=== PATIENT | male | born 1960 | race Caucasian/White ===

== ENCOUNTER 2018-04-23 13:05 | Observation (INO) | payer OTHER ==
[2018-04-23 14:00] LABS: Absolute Lymphocytes (CBC) 1.5 K/uL (0.7-4.9); Absolute Monocytes 0.5 K/uL (0.1-1.3); Absolute Neutrophil 3.5 K/uL (1.8-8.0); Basophils % 1.1 % (0-1.3); MCH 25.9 pg (27.0-35.0); MCV 79.3 fL (80-100); MPV 7.8 fL (7.6-11.3); RBC Red Blood Cell Count 4.16 M/uL (4.33-5.43)
--- NOTE | 2018-04-23 14:03 | EDPHYS ---
Physician Documentation [facility] Name: Alex Cagle Age: 57 yrs Sex: Male : 1960 Arrival Date: 04/23/2018 Time: 13:08 Bed 27 Private MD: Toya Andrew H ED Physician Ambrocio Alonso HPI: 04/23 13:32 This 57 yrs old Male presents to ER via Ambulatory with complaints of Chest jarrell Pain. 13:32 The patient or guardian reports chest pain that is located primarily in the chest jarrell diffusely. Onset: 3 day(s) ago. The pain does not radiate. Associated signs and symptoms: Pertinent positives: lightheadedness, palpitations. The chest pain is described as aching. Duration: The patient or guardian reports multiple episodes, that are intermittent. Duration:. Modifying factors: The symptoms are alleviated by nothing. the symptoms are aggravated by nothing. Severity of pain: At its worst the pain was mild in the emergency department the pain is unchanged. The patient has experienced similar episodes in the past, a few times. Historical: - Allergies: 14:58 NKA; iw - PMHx: 13:20 CHF; Diabetes - NIDDM; Hypertension; insomnia; aa5 13:20 Dialysis; ESRD; aa5 - PSHx: 13:20 Knee surgery; aa5 13:20 Dialysis catheter to R chest; aa5 - Immunization history:: Adult Immunizations up to date. - Social history:: Smoking status: Patient/guardian denies using tobacco. - Ebola Screening: : No symptoms or risks identified at this time. - Family history:: not pertinent. ROS: 13:32 Constitutional: Negative for fever, chills, and weight loss, Eyes: Negative for injury, jarrell pain, redness, and discharge, ENT: Negative for injury, pain, and discharge, Neck: Negative for injury, pain, and swelling, Respiratory: Negative for shortness of breath, cough, wheezing, and pleuritic chest pain, Abdomen/GI: Negative for abdominal pain, nausea, vomiting, diarrhea, and constipation, Back: Negative for injury and pain, : Negative for injury, bleeding, discharge, and swelling, MS/Extremity: Negative for injury and deformity, Skin: Negative for injury, rash, and discoloration, Neuro: Negative for headache, weakness, numbness, tingling, and seizure, Psych: Negative for depression, anxiety, suicide ideation, homicidal ideation, and hallucinations, Allergy/Immunology: Negative for hives, rash, and allergies, Endocrine: Negative for neck swelling, polydipsia, polyuria, polyphagia, and marked weight changes, Hematologic/Lymphatic: Negative for swollen nodes, abnormal bleeding, and unusual bruising. 13:32 Cardiovascular: Positive for chest pain, palpitations. Exam: 13:32 Constitutional: This is a well developed, well nourished patient who is awake, alert, jarrell and in no acute distress. Head/Face: Normocephalic, atraumatic. Eyes: Pupils equal round and reactive to light, extra-ocular motions intact. Lids and lashes normal. Conjunctiva and sclera are non-icteric and not injected. Cornea within normal limits. Periorbital areas with no swelling, redness, or edema. ENT: Nares patent. No nasal discharge, no septal abnormalities noted. Tympanic membranes are normal and external auditory canals are clear. Oropharynx with no redness, swelling, or masses, exudates, or evidence of obstruction, uvula midline. Mucous membranes moist. Neck: Trachea midline, no thyromegaly or masses palpated, and no cervical lymphadenopathy. Supple, full range of motion without nuchal rigidity, or vertebral point tenderness. No Meningismus. Chest/axilla: Normal chest wall appearance and motion. Nontender with no deformity. No lesions are appreciated. Cardiovascular: Regular rate and rhythm with a normal S1 and S2. No gallops, murmurs, or rubs. Normal PMI, no JVD. No pulse deficits. Respiratory: Lungs have equal breath sounds bilaterally, clear to auscultation and percussion. No rales, rhonchi or wheezes noted. No increased work of breathing, no retractions or nasal flaring. Abdomen/GI: Soft, non-tender, with normal bowel sounds. No distension or tympany. No guarding or rebound. No evidence of tenderness throughout. Back: No spinal tenderness. No costovertebral tenderness. Full range of motion. Male : Normal genitalia with no discharge or lesions. Skin: Warm, dry with normal turgor. Normal color with no rashes, no lesions, and no evidence of cellulitis. MS/ Extremity: Pulses equal, no cyanosis. Neurovascular intact. Full, normal range of motion. Neuro: Awake and alert, GCS 15, oriented to person, place, time, and situation. Cranial nerves II-XII grossly intact. Motor strength 5/5 in all extremities. Sensory grossly intact. Cerebellar exam normal. Normal gait. Psych: Awake, alert, with orientation to person, place and time. Behavior, mood, and affect are within normal limits. Vital Signs: 13:12 BP 134 / 85; Pulse 80; Resp 18 S; Temp 98.3(O); Pulse Ox 96% on R/A; Weight 85.73 kg aa5 (R); Height 5 ft. 7 in. (170.18 cm) (R); Pain 10/10; 14:30 BP 131 / 82; Pulse 78; Resp 18; Pulse Ox 99% ; tl3 16:17 BP 126 / 87; Pulse 76; Resp 18; Pulse Ox 96% ; tl3 16:25 BP 130 / 79; Pulse 76; Resp 18; Pulse Ox 98% on R/A; tl3 17:24 BP 123 / 81; Pulse 79; Resp 16; Pulse Ox 97% ; tl3 13:12 Body Mass Index 29.60 (85.73 kg, 170.18 cm) aa5 MDM: 13:18 Patient medically screened. [facility] 13:39 Data reviewed: vital signs, nurses notes, old medical records, lab test result(s), EKG, [facility] radiologic studies, plain films. 04/23 13:32 Order name: Basic Metabolic Panel; Complete Time: 15:08 [facility] 04/23 13:32 Order name: CBC with Diff; Complete Time: 15:08 [facility] 04/23 13:32 Order name: Ckmb; Complete Time: 15:08 [facility] 04/23 13:32 Order name: CPK; Complete Time: 15:08 [facility] 04/23 13:32 Order name: LFT's; Complete Time: 15:08 [facility] 04/23 13:32 Order name: Magnesium; Complete Time: 15:08 [facility] 04/23 13:32 Order name: NT PRO-BNP; Complete Time: 15:08 [facility] 04/23 13:32 Order name: PT-INR; Complete Time: 15:08 [facility] 04/23 13:32 Order name: Ptt, Activated; Complete Time: 15:08 [facility] 04/23 13:32 Order name: Troponin (emerg Dept Use Only); Complete Time: 15:08 [facility] 04/23 13:32 Order name: XRAY Chest (1 view); Complete Time: 15:08 [facility] 04/23 13:32 Order name: TSH; Complete Time: 15: [facility] 04/23 13:32 Order name: Lipase; Complete Time: 15: [facility] 04/23 13:32 Order name: Echo w/ Doppler [facility] 04/23 13:32 Order name: EKG; Complete Time: 13:33 [facility] 04/23 13:32 Order name: Cardiac monitoring; Complete Time: 15:15 [facility] 04/23 13:32 Order name: EKG - Nurse/Tech; Complete Time: 15:15 [facility] 04/23 13:32 Order name: IV Saline Lock; Complete Time: 15: [facility] 04/23 13:32 Order name: Labs collected and sent; Complete Time: 15: [facility] 04/23 13:32 Order name: O2 Per Protocol; Complete Time: 15: [facility] 04/23 13:32 Order name: O2 Sat Monitoring; Complete Time: 15: [facility] 04/23 14:08 Order name: CONS Physician Consult EDMA 04/23 14:08 Order name: CONS Physician Consult EDMS Administered Medications: 15:19 Drug: Aspirin 162 mg Route: PO; tl3 16:19 Follow up: Response: No adverse reaction tl3 Disposition: 04/23/18 14:03 Hospitalization ordered by Salima Meyrs for Observation. Preliminary diagnosis are Other chest pain, End stage renal disease, Palpitations. - Bed requested for Telemetry/MedSurg (observation). - Status is Observation. tl3 - Condition is Fair. - Problem is new. - Symptoms have improved. UTI on Admission? No Signatures: Dispatcher [employer] EDMS Ambrocio Alonso MD MD cha Williams, Irene RN Nabila Ruvalcaba RN RN Eliza Lozoya RN RN tl3 Feli Rogers Corrections: (The following items were deleted from the chart) 14:09 14:03 Hospitalization Ordered by Jamia Yuan MD for Observation. Preliminary eb diagnosis is Other chest pain; End stage renal disease; Palpitations. Bed requested for Telemetry/MedSurg (observation). Status is Observation. Condition is Fair. Problem is new. Symptoms have improved. UTI on Admission? No. jarrell 14:18 14:09 04/23/2018 14:03 Hospitalization Ordered by Jamia Yuan MD for Observation. jarrell Preliminary diagnosis is Other chest pain; End stage renal disease; Palpitations. Bed requested for Telemetry/MedSurg (observation). Status is Observation. Condition is Fair. Problem is new. Symptoms have improved. UTI on Admission? No. eb 15:38 14:18 04/23/2018 14:03 Hospitalization Ordered by Salima Myers MD for Observation. eb Preliminary diagnosis is Other chest pain; End stage renal disease; Palpitations. Bed requested for Telemetry/MedSurg (observation). Status is Observation. Condition is Fair. Problem is new. Symptoms have improved. UTI on Admission? No. jarrell 17:44 15:38 04/23/2018 14:03 Hospitalization Ordered by Salima Myers MD for Observation. tl3 Preliminary diagnosis is Other chest pain; End stage renal disease; Palpitations. Bed requested for Telemetry/MedSurg (observation). Status is Observation. Condition is Fair. Problem is new. Symptoms have improved. UTI on Admission? No. eb
--- NOTE | 2018-04-23 14:03 | ER ---
Nurse's Notes [facility] Name: Alex Cagle Age: 57 yrs Sex: Male : 1960 Arrival Date: 04/23/2018 Time: 13:08 Bed 27 Private MD: Toya Andrew H Diagnosis: Other chest pain;End stage renal disease;Palpitations Presentation: 04/23 13:10 Presenting complaint: Patient states: Intermittent left-sided chest pain and aa5 palpitations since last night. 13:10 Transition of care: patient was not received from another setting of care. Onset of aa5 symptoms was April 2018. Risk Assessment: Do you want to hurt yourself or someone else? Patient reports no desire to harm self or others. Initial Sepsis Screen: Does the patient meet any 2 criteria? No. Patient's initial sepsis screen is negative. Does the patient have a suspected source of infection? No. Patient's initial sepsis screen is negative. Care prior to arrival: None. 13:10 Method Of Arrival: Ambulatory aa5 13:10 Acuity: DEJAN 3 aa5 Historical: - Allergies: 14:58 NKA; iw - PMHx: 13:20 CHF; Diabetes - NIDDM; Hypertension; insomnia; aa5 13:20 Dialysis; ESRD; aa5 - PSHx: 13:20 Knee surgery; aa5 13:20 Dialysis catheter to R chest; aa5 - Immunization history:: Adult Immunizations up to date. - Social history:: Smoking status: Patient/guardian denies using tobacco. - Ebola Screening: : No symptoms or risks identified at this time. - Family history:: not pertinent. Screenin:43 Abuse screen: Denies threats or abuse. Nutritional screening: No deficits noted. tl3 Tuberculosis screening: No symptoms or risk factors identified. Fall Risk None identified. Assessment: 13:43 General: Appears in no apparent distress. comfortable, well groomed, well developed, tl3 well nourished, Behavior is calm, cooperative, appropriate for age. General: pt reports that he had palpitations, fluttering earlier today that was uncomfortable, causing him to become lightheaded. Pain: Denies pain. Pain does not radiate. Pain began. Neuro: No deficits noted. Level of Consciousness is awake, alert, obeys commands, Oriented to person, place, time, situation, Appropriate for age. Cardiovascular: Reports lightheadedness, palpitations, since earlier today. Respiratory: Airway is patent Respiratory effort is even, unlabored, Respiratory pattern is regular, symmetrical. GI: No signs and/or symptoms were reported involving the gastrointestinal system. : No signs and/or symptoms were reported regarding the genitourinary system. EENT: No signs and/or symptoms were reported regarding the EENT system. 14:30 Reassessment: Patient appears in no apparent distress at this time. No changes from tl3 previously documented assessment. Patient and/or family updated on plan of care and expected duration. Pain level reassessed. Patient is alert, oriented x 3, equal unlabored respirations, skin warm/dry/pink. at bedside. 17:24 Reassessment: Patient appears in no apparent distress at this time. No changes from tl3 previously documented assessment. Patient and/or family updated on plan of care and expected duration. Pain level reassessed. Patient is alert, oriented x 3, equal unlabored respirations, skin warm/dry/pink. Vital Signs: 13:12 BP 134 / 85; Pulse 80; Resp 18 S; Temp 98.3(O); Pulse Ox 96% on R/A; Weight 85.73 kg aa5 (R); Height 5 ft. 7 in. (170.18 cm) (R); Pain 10/10; 14:30 BP 131 / 82; Pulse 78; Resp 18; Pulse Ox 99% ; tl3 16:17 BP 126 / 87; Pulse 76; Resp 18; Pulse Ox 96% ; tl3 16:25 BP 130 / 79; Pulse 76; Resp 18; Pulse Ox 98% on R/A; tl3 17:24 BP 123 / 81; Pulse 79; Resp 16; Pulse Ox 97% ; tl3 13:12 Body Mass Index 29.60 (85.73 kg, 170.18 cm) aa5 ED Course: 13:08 Patient arrived in ED. mr 13:09 Toya Andrew DO is Private Physician. mr 13:10 Arm band placed on. aa5 13:10 Arm band placed on Patient placed in an exam room, on a stretcher. aa5 13:18 Ambrocio Alonso MD is Attending Physician. [facility] 13:20 Triage completed. aa5 13:30 EKG done, by quality control technician. reviewed by Ambrocio Alonso MD. sm3 13:42 Eliza Rodriguez, RN is Primary Nurse. tl3 13:43 Patient has correct armband on for positive identification. Placed in gown. Bed in low tl3 position. Call light in reach. Side rails up X 1. Adult w/ patient. nurse monitoring on. Pulse ox on. NIBP on. 13:43 No provider procedures requiring assistance completed. Inserted saline lock: 20 gauge tl3 in right wrist, using aseptic technique. Patient maintains SpO2 saturation greater than 95% on room air. 13:57 X-ray completed. Portable x-ray completed in exam room. Patient tolerated procedure sw well. 13:59 XRAY Chest (1 view) In Process Unspecified. EDME 14:02 Toya Andrew DO is Hospitalizing Provider. [facility] 14:02 Jamia Yuan MD is Hospitalizing Provider. [facility] 14:17 Salima Myers MD is Hospitalizing Provider. [facility] 16:25 Admitting physician to see patient. tl3 17:33 Patient admitted, IV remains in place. tl3 Administered Medications: 15:19 Drug: Aspirin 162 mg Route: PO; tl3 16:19 Follow up: Response: No adverse reaction tl3 Outcome: 14:03 Decision to Hospitalize by Provider. [facility] 17:31 Admitted to Med/surg accompanied by [facility], via wheelchair, with chart, Report called to tl3 KATIANA Ochoa 17:31 Condition: stable 17:31 Instructed on the need for admit, Demonstrated understanding of instructions. 17:44 Patient left the ED. tl3 Signatures: Dispatcher [employer] EDME Ambrocio Alonso MD MD cha Rivera, Maria mr Williams, Irene, RN Nabila Ruvalcaba RN RN dewey5 Sarah Henderson Tammy, KATIANA RN 3 Kassie Sanz 3
[2018-04-23] MEDS ORDERED: GLUCAGON 1 MG/VIAL IM PRN (14:07)
[2018-04-23] MEDS ORDERED: D50W 25 GM/50 ML SYRINGE IV PRN (14:07)
[2018-04-23 14:18] LABS: Protime INR 0.98
[2018-04-23 14:43] LABS: Albumin 3.5 g/dL (3.4-5.0); Bilirubin Direct 0.1 mg/dL (0-0.2); Bilirubin Total 0.3 mg/dL (0.2-1.0); CKMB Creatine Kinase MB 1.3 ng/mL (0.3-3.6); Magnesium 2.3 mg/dL (1.8-2.4); Protein, Total 7.2 g/dL (6.4-8.2); Thyroid Stimulating Hormone 0.24 uIU/mL (0.36-3.74)
--- NOTE | 2018-04-23 15:02 | RAD REPORT ---
EXAM DESCRIPTION: RAD - Chest Single View - 04/23/2018 2:03 pm CLINICAL HISTORY: Palpitations, patient provided history of intermittent left-sided chest pain COMPARISON: June 2016 TECHNIQUE: AP portable chest image was obtained 1350 hours . FINDINGS: No peripheral mass or consolidation. No significant failure or volume overload findings. M ild cardiomegaly is present without vascular engorgement. Double-lumen dialysis catheter has been tory vania since the prior examination. Trachea is midline. No upper lobe vascular engorgement. No measurabl e pleural effusion and no pneumothorax. No gross bony abnormality seen. No acute aortic findings susp ected. IMPRESSION: Mild cardiomegaly without failure, volume overload or other acute cardiopulmonary findin g. Lung markings are similar to comparison.
[2018-04-23] MEDS ORDERED: ZOLPIDEM TARTRATE 5 MG TABLET PO PRN (15:07)
[2018-04-23] MEDS ORDERED: ACETAMINOPHEN 500 MG TAB PO PRN (15:07)
[2018-04-23] MEDS ORDERED: ALPRAZOLAM 0.25 MG TABLET PO PRN (15:07)
[2018-04-23] MEDS ORDERED: NITROGLYCERIN 0.4 MG/TAB SL PRN (15:07)
--- NOTE | 2018-04-23 15:14 | ECHO ---
HEIGHT: ft in WEIGHT: lb oz DATE OF STUDY: REFER DR: Ambrocio Alonso MD 2-DIMENSIONAL: YES M.MODE: YES DOPPLER: YES COLOR FLOW: YES TDS: NO PORTABLE: YES DEFINITY: NO BUBBLE STUDY: NO DIAGNOSIS: PALPITATIONS CARDIAC HISTORY: CATHERIZATION: NO SURGERY: NO PROSTHETIC VALVE: NO PACEMAKER: NO MEASUREMENTS (cm) DIASTOLIC (NORMALS) SYSTOLIC (NORMALS) IVSd 1.3 (0.6-1.2) LA Diam 4.0 (1.9-4.0) LVEF 68% LVIDd 5.1 (3.5-5.7) LVIDs 3.2 (2.0-3.5) %FS 38% LVPWd 1.6 (0.6-1.2) Ao Diam 3.4 (2.0-3.7) 2 DIMENSIONAL ASSESSMENT: RIGHT ATRIUM: NORMAL LEFT ATRIUM: DILATED RIGHT VENTRICLE: NORMAL LEFT VENTRICLE: LEFT VENTRICULAR HYPERTROPHY TRICUSPID VALVE: NORMAL MITRAL VALVE: NORMAL PULMONIC VALVE: NORMAL AORTIC VALVE: NORMAL PERICARDIAL EFFUSION: NONE AORTIC ROOT: NORMAL LEFT VENTRICULAR WALL MOTION: NORMAL. DOPPLER/COLOR FLOW: MILD MITRAL AND TRICUSPID REGURGITATION. NORMAL RIGHT VENTRICULAR SYSTOLIC PRESSURE. COMMENTS: NORMAL LEFT VENTRICULAR EJECTION FRACTION. LEFT VENTRICULAR HYPERTROPHY. DILATED LEFT ATRIUM. MILD MITRAL AND TRICUSPID REGURGITATION. TECHNOLOGIST: RAGHAVENDRA FERNANDEZ
--- NOTE | 2018-04-23 15:16 | EKG ---
Test Date: 2018-04-23 Test Time: 13:21:19 Career Resource Specialist: WHITLEY MEASUREMENT RESULTS: Intervals: Rate: 77 WY: 178 QRSD: 94 QT: 438 QTc: 495 [place]: P: 12 WY: 178 QRS: 101 T: 6 INTERPRETIVE STATEMENTS: Normal sinus rhythm Rightward axis Nonspecific T wave abnormality Prolonged QT Abnormal ECG Compared to ECG 06/15/2016 12:00:31 Right-axis deviation now present T-wave abnormality now present Prolonged QT interval now present Electronically Signed On 04-23-18 15:15:32 CDT by Shahzad Martínez
[2018-04-23] MEDS ORDERED: ASPIRIN 81 MG CHEWABLE TABLET ONE (15:19)
[2018-04-23] MEDS: INSULIN -REGULAR HUMAN 50 UNIT/0.5 ML ML SQ SCH ×2 (16:30→20:01)
[2018-04-23] MEDS: ENOXAPARIN 30 MG/0.3 ML SQ SCH (18:50)
[2018-04-23] MEDS: MORPHINE 4 MG/ML SYR IV PRN ×2 (19:11→23:02)
[2018-04-23] MEDS: METOPROLOL TAR 50 MG TAB PO SCH (20:02)
--- NOTE | 2018-04-23 21:28 | CON ---
History Of Present Illness: Mr. Cagle is 57. He came to the hospital because his heart was racing. He has a blood pressure cuff that he uses frequently and he has had at least 2, maybe more spells wh ere his heart rate has been between 180 and 200. He will feel particularly bad. He monitors his blo od pressure carefully because he has renal failure. He has recently had some medication changes. Fo r 10 years, he has been taking amlodipine, benazepril for blood pressure, but those had to be stopped . He developed renal failure, spent more than a month in the hospital in [place], had to have a p ericardial effusion drained and then was started on hemodialysis. He has been on hemodialysis since January. He has never had an EKG when one of these spells happened. He does not get pain in the chest , pressure, tightness or squeezing. Ten years ago, he had a renal artery angiogram. It was suspecte d that he had renal artery stenosis. It was normal. He also had a coronary angiogram, which was nor mal. Outpatient Medications: Patient's outpatient medications now are slow release, nifedipine, hydralazi ne, and carvedilol. Allergies: THE PATIENT DOES NOT HAVE DRUG ALLERGIES. Social History: He uses no tobacco. No illegal drugs. Does not have diabetes or dyslipidemia. No history of myocardial infarction, stroke, or vascular disease. Physical Examination: General: He is 5 feet 7 inches, 85.7 kilos, mildly obese, at least overweight. Alert, oriented, ple asant, cooperative, not in distress. Vital signs: His most recent blood pressure was 134/85, pulse 80, temperature 98.3. Neurologic: He is alert, oriented, pleasant, cooperative, not in distress. Lungs: Clear. Cardiac: Normal. Abdomen: Soft. Extremities: Normal. Laboratory Data: He has an elevated N-terminal proBNP. It is over 11,000 and of course this is not unusual in a patient with severe renal dysfunction. He has had an echocardiogram that shows left na tricular hypertrophy, normal ejection fraction, dilated left atrium, mild mitral and tricuspid regurg itation. No pericardial effusion. Impression: The patient is probably having Atrial fibrillation. It is not present on today's EKG or monitoring strip that we see. He probably has paroxysmal atrial fibrillation. If we do not see any atrial fibrillation by tomorrow morning, I will recommend that we do an outpatient event monitor for 30 days or alternatively implant a device to record his rhythm. It will go on for 2 years, but base d on what I am hearing we are likely to see it within a 30 day period of time. If he has atrial fibr illation, then we would have the option of starting him on Multaq or amiodarone as the agents of tatum ce. Betapace would be contraindicated in a dialysis patient. Thank you very much for your kind referral of Mr. Cagle. I will follow him with you. NICKOLAS/BETTINA Voice ID: [id number] Report ID: [id number]
--- NOTE | 2018-04-24 02:59 | CON ---
Date of Consultation: 04/23/2018 Chief Complaint: End-stage renal disease, on dialysis. History Of Present Illness: The patient is a 57-year-old man with history of end-stage renal disease, has been dialyzed 3 times per week on Monday, , and Monday via the tunneled dialysis catheter. The patient came to the hospital because of palpitation. He had apparently palpitation with tachycardia up to 180 and 200. He was feeling somewhat dizzy, lightheaded, and had some chest pressure. In the recent past, he was hospitalized in [place] for pericardial effusion and was started on hemodialysis in January. Review of Systems: Constitutional: Denies fever, chills. Eyes: Denies vision changes. Ears, Nose, Mouth, and Throat: Denies sore throat or earache. Respiratory: Has some dyspnea off and on. Denies PND, orthopnea. Cardiovascular: Denies chest pain. GI: Denies nausea, vomiting. : Denies dysuria, hematuria. Musculoskeletal: Denies muscle aches or joint swelling. All other system reviewed and all are negative. Past Medical History: End-stage renal disease, on dialysis; pericardial effusion; anemic; CKD; renal osteodystrophy. Social History: Denies illicit drugs. Has positive history of tobacco. Denies alcohol. Family History: No history of kidney disease in his family. Physical Examination: General: Not in acute distress. Eyes: Anicteric. Sclerae EOMI. Ears, Nose, Mouth, and Throat: Oral mucosa is moist. No pallor. Neck: Supple. No JVD. No bruits. Lungs: Clear to auscultation bilaterally. Heart: S1, S2. No pericardial friction rub. Abdomen: Soft, benign, nontender. Extremities: Minimal edema. No clubbing. No cyanosis. No cellulitis. Laboratory Data: Hemoglobin 10.8, WBC 5.8, platelet count is 263,000. Chemistries show sodium 135, potassium 4.0, chloride 101, CO2 24, BUN 69, creatinine 8.9, glucose 103, calcium 8.4, magnesium [place] 2[place] [address], albumin 3.5, TSH 0.24, lipase 124, troponin 0.04. Chest x-ray; mild cardiomegaly, mild volume overload, no acute cardiopulmonary process, no pleural effusion, no pneumothorax. Mild cardiomegaly present without vascular engorgement. No consolidation. No peripheral mass. Impression And Plan: 1. End-stage renal disease. The patient will resume dialysis tomorrow. Continue low-sodium diet. Monitor blood pressure closely. 2. Tachycardia. The patient is undergoing workup with Cardiology. Troponin level is negative for acute coronary syndrome with myocardial infarction. The patient currently does not have chest pain. 3. Anemia and chronic kidney disease. Hemoglobin level satisfactory. 4. Renal osteodystrophy. Continue renal diet. Monitor phosphorus level. NADEEN/MODRamone Voice ID: [id number] Report ID: [id number]
[2018-04-24] MEDS: MORPHINE 4 MG/ML SYR IV PRN ×3 (03:13→11:54)
[2018-04-24 03:52] LABS: Urine Appearance CLEAR; Urine Bilirubin NEGATIVE (NEG); Urine Blood TRACE (NEG); Urine Color YELLOW; Urine Glucose 1+ (NEG); Urine Protein 3+ (NEG); Urine Urobilinogen 0.2 mg/dL (0.2-1.0)
[2018-04-24 03:54] LABS: Urine Microscopic Reflex ORDER UMIC
--- NOTE | 2018-04-24 03:54 | HP ---
Date of Admission: 04/23/2018 [place] Operator: Dr. Martínez, Cardiology. Primary Care Physician: Dr. Andrew. Chief Complaint: Chest pain, palpitation. History Of Present Illness: The patient is a 57-year-old male with past medical history of end-stage renal disease, on hemodialysis on Monday, , and Monday; hypertension; diabetes, non-insul in dependent; who was in his usual state of health, recently discharged from [facility] with an extended stay with uncontrolled blood pressure and pericardiocentesis procedure do ne during that hospitalization. The patient was in his usual state of health until he felt palpitati ons and had some chest pressure radiating to his left neck. The patient states this pain was constan t, moderate, progressively worsening, therefore came into the ER for further evaluation. Denies any fevers, chills, shortness of breath. Upon arrival, his vital signs showed blood pressure 134/85, pul se was 80. His EKG showed normal sinus rhythm. Chest x-ray did not show any acute changes, which sh ows some mild cardiomegaly without any volume overload. His labs showed a troponin [place] 0.04. BNP was [address]. TSH was low. The patient was then referred for admission. When seen in the ER, he was awak e, alert, oriented x3, in some mild distress. Past Medical History: End-stage renal disease, on hemodialysis on Monday, , and Monday; h ypertension; diabetes mellitus type 2, non-insulin dependent. Past Surgical History: The patient had some back surgery in the remote past. Allergies: NO KNOWN DRUG ALLERGIES. Medications: List reviewed. Social History: The patient is , has 2 daughters. No tobacco use, alcohol use, or illicit dr ug use. Family History: Father had heart disease and diabetes. Review of Systems: An 11-point system reviewed, negative except as per HPI. Physical Examination: Vital Signs: Blood pressure 134/85, pulse 80, respirations 18, temperature 98.3, O2 96% on room air. General: Awake, alert, oriented x3, in some mild distress. HEENT: Normocephalic, atraumatic. PERRLA. EOMI. Moist mucous membranes. Oropharynx is clear. Co njunctivae anicteric. Neck: Supple. No JVD. CV: S1, S2. Regular rate and rhythm. Peripheral pulses present. No murmurs. Respiratory: Clear to auscultation bilaterally. No wheezing. No stridor. No use of accessory musc les. Gastrointestinal: Abdomen is soft, nontender, nondistended. Positive bowel sounds. No guarding or rigidity. Extremities: No clubbing, cyanosis. Trace pedal edema. No calf tenderness. Neuro: Cranial nerves 2-12 intact grossly. No focal neurological deficit. Speech is normal. Stren gth is 5/5 in bilateral upper and lower extremities. Sensation intact to light touch. Skin: No rashes. Normal skin turgor. Laboratory Data: INR 0.98. Sodium 135, potassium 4, chloride 101, CO2 of 24, BUN 69, creatinine 8.9 , glucose 103, calcium 8.4, magnesium 2.3, AST 14, ALT 17. Troponin 0.04. BNP 98855. TSH 0.24. WB C 5.8, H and H 10.8 and 33, platelets 263. Echocardiogram shows EF 68%. Left ventricular hypertrophy. Dilated left atrium. Mild mitral and tr icuspid regurg. Chest x-ray shows mild cardiomegaly without failure, volume overload, or other acute cardiopulmonary finding. Lung markings similar to comparison, partially reviewed. EKG shows normal sinus rhythm, rate of 77, no specific T-wave abnormality. Assessment: A 57-year-old male with: 1.Chest pain, rule out acute coronary syndrome. We will start on chest pain guidelines, beta-blocke r, no steroids due to kidney dysfunction, aspirin, statin. 2.Palpitations. EKG shows normal sinus rhythm. Echocardiogram shows EF 68%. 3.Hypertensive heart disease. 4.End-stage renal disease, on hemodialysis. Dr. Higgins has been consulted. The patient wi ll go for dialysis tomorrow. 5.Essential hypertension. Resume home medications as appropriate. 6.Diabetes mellitus type 2. We will place on sliding-scale insulin and continue Accu-Cheks. 7.Gastrointestinal and deep venous thrombosis prophylaxis with PPI and Lovenox. Plan: Admit the patient to Med-Surg, place as observation. TAO Voice ID: [id number]
[2018-04-24 04:45] LABS: Urine Bacteria <20 /HPF (NONE SEEN); Urine Culture Reflex Order NOT NEEDED; Urine RBC NONE SEEN /HPF (NONE SEEN)
[2018-04-24 05:21] LABS: Absolute Lymphocytes (CBC) 1.7 K/uL (0.7-4.9); Absolute Monocytes 0.4 K/uL (0.1-1.3); Absolute Neutrophil 2.5 K/uL (1.8-8.0); Basophils % 1.4 % (0-1.3); Eosinophils % 4.8 % (0-4.4); Hematocrit 30.9 % (39.6-49.0); Lymphocytes % 34.3 % (15.3-44.8); MCH 26.7 pg (27.0-35.0); MPV 7.7 fL (7.6-11.3); RBC Red Blood Cell Count 3.91 M/uL (4.33-5.43)
[2018-04-24 05:23] LABS: Potassium 4.3 mmol/L (3.5-5.1)
[2018-04-24] MEDS: INSULIN -REGULAR HUMAN 50 UNIT/0.5 ML ML SQ SCH ×3 (07:30→16:30)
[2018-04-24] MEDS ORDERED: REGADENOSON 0.4 MG/5 ML SYR IV ONE (08:17)
[2018-04-24] MEDS: METOPROLOL TAR 50 MG TAB PO SCH (09:00)
[2018-04-24] MEDS ORDERED: ASPIRIN EC 81 MG TAB PO SCH (09:00)
[2018-04-24] MEDS ORDERED: HYDROCODONE/APAP 5/325 MG TAB PO PRN (09:28)
[2018-04-24] MEDS: CA ACETATE 667 MG CAP PO SCH ×2 (11:53→17:22)
[2018-04-24] MEDS: HYDRALAZINE HCL 25 MG TABLET PO SCH ×3 (14:00→19:37)
[2018-04-24] MEDS ORDERED: hydrOXYzine HCl 25 MG TAB PO SCH (14:00)
--- NOTE | 2018-04-24 14:53 | RAD REPORT ---
EXAM DESCRIPTION: NM - Rest Stress Cardiac Imaging - 04/24/2018 2:42 pm CLINICAL HISTORY: Chest pain COMPARISON: February 2009 TECHNIQUE: The patient was administered 10.9 mCi of Tc 99m Sestamibi prior to resting SPECT imaging of the heart. The patient was then administered 30.3 mCi of Tc 99m Sestamibi following exercise or ph armacologic stress. Multiplanar SPECT images were reviewed. FINDINGS: The end diastolic volume is 203 ml, the end systolic volume is 101 ml, and the ejection fr action is 50 %. Ventricular volumes have enlarged and ejection fraction has decreased since 2009. No stress-induced ischemic changes are identifiable. Mild diminished activity is seen in the inferior wall near the base and there is diminished activity at the apex that is not clearly different betwee n rest and stress imaging. The apex finding was detailed on the 2008 study is not clearly different. IMPRESSION: No stress-induced ischemic changes confirmed. Diminished activity near the apex is not c learly different from 2009 and not suspected to be ischemia. Enlarged end-diastolic volume of 203 milliliters, increased from 2009. Ejection fraction is 50%, redu vania from the 58% seen in the 2009 study.
--- NOTE | 2018-04-24 15:47 | TREADPHA ---
DX: CHEST PAIN Date of Study: 04/24/2018 Ht: 5 7 Wt: 197 lb 6.4 oz Consulting Physician: DOLORES MEDICATIONS: TYLENOL, ASPIRIN, XANAX, LOVENOX, DEXTROSE, GLUCAGEN, NOVOLIN-R, LOPRESSOR, NITROSTAT, AMBIEN. HISTORY: 57 YEAR OLD MAN WITH END STAGE RENAL FAILURE, HYPERTENSION, DIABETES MELLITUS AND CHEST PAIN. PHYSICIAL EXAMINATION: RESTING B.P.: 144/90 RESTING H.R.: 72 RESTING EKG: NORMAL SINUS RHYTHM. PROTOCOL: LEXISCAN EXERCISE TIME: 3:30 B.P. AT PEAK STRESS: 145/88 IMPRESSION: LEXISCAN STRESS TEST PERFORMED. CARDIOLITE INJECTED PER PROTOCOL. NO CHEST PAIN. NO VENTRICULAR TACHYCARDIA OR SUPRAVENTRICULAR TACHYCARDIA. SEE NUCLEAR MEDICINE REPORT.
[2018-04-24] MEDS: ENOXAPARIN 30 MG/0.3 ML SQ SCH (17:00)
[2018-04-24] MEDS ORDERED: FUROSEMIDE 40 MG TABLET PO SCH (17:00)
[2018-04-24] MEDS ORDERED: TAMSULOSIN 0.4 MG SR CAP PO SCH (21:00)
[2018-04-24] MEDS ORDERED: CARVEDILOL 3.125 MG TAB PO SCH (21:00)
--- NOTE | 2018-04-25 00:27 | PN ---
Date of Progress Note: 04/24/2018 Subjective: Patient doing better. Chest pain-free. Patient planned for dialysis today. Stress test today. Patient feeling better. Physical Examination: Vital Signs: Blood pressure 138/72, pulse of 88. Chest: Clear to auscultation. Heart: S1, S2. Regular. Abdomen: Soft, nontender. Extremities: No edema. Lab: Reviewed. Medication: Reviewed. Assessment And Plan: 1. End-stage renal disease. We will continue dialysis, TTS. 2. SHPT stable. 3. Hypertension, controlled, optimal. Continue current medication. 4. Coronary artery disease disease, will follow up with Cardiology. RENAE Voice ID: [id number] Report ID: [id number]
--- NOTE | 2018-04-25 05:58 | DS ---
Date of Discharge: 04/24/2018 Consultants: Dr. Martínez and Dr. Lawton with Cardiology and Dr. Marroquin with Nephrology. Procedures: Cardiac stress test on 04/24/2018. Admitting Diagnoses: 1.Palpitations. 2.Chest pain, precordial pain. 3.Hypertensive heart disease. 4.End-stage renal disease, on hemodialysis. 5.Essential hypertension. 6.Diabetes mellitus type 2, non-insulin requiring with hyperglycemia. Discharge Diagnoses: 1.Chest pain. Acute coronary syndrome ruled out. 2.Palpitations, resolved. 3.Hypertensive heart disease. 4.End-stage renal disease, on hemodialysis, stable. 5.Essential hypertension, stable. 6.Diabetes mellitus type 2, non-insulin requiring with hyperglycemia. 7.Microcytic hypochromic anemia, likely anemia of chronic disease and iron deficiency secondary to c hronic kidney disease. Hospital Course: The patient is a 57-year-old male who was admitted to the hospital for chest pain a nd palpitations. The patient has complicated medical history including diabetes, end-stage renal dis ease, on dialysis, who was recently admitted to [facility] in [place] for uncontrolle d blood pressure. The patient comes in with palpitations and chest pressure radiating to the left ne ck. He did have some tachycardia which improved with treatment. His initial cardiac enzymes and EKG were negative. He was admitted for ACS for rule out ACS. Repeat cardiac enzymes were also negative . No acute changes on EKG. The patient was seen by Dr. Martínez with Cardiology and stress test was r ecommended. The patient did have an echocardiogram done, which showed EF of 68%, left ventricular hy pertrophy. Atrial fibrillation was ruled out. Rhythm strips did not show any atrial fibrillation. Cardiology did recommend possible outpatient event monitor for 30 days or an implant device to record his rhythm. The patient was also seen by Dr. Marroquin with Nephrology, and his dialysis was resumed as scheduled. The patient also had a stress test done. The patient was then cleared for discharge and sent home in a stable condition. Activity: As tolerated. Medications: As per medication reconciliation list. Diet: Renal. Followup: Follow up with PCP in 2 to 3 days. Follow up with accounting manager assistant controller, Dr. Martínez in 2 weeks. F ollow up with primary restaurant worker in [place] in 2 weeks. Continue hemodialysis as scheduled. Retur n to ER for worsening condition. Physical Examination: General: Awake, alert, oriented x3, not in any acute distress. CV: S1, S2. No murmurs. Respiratory: Clear to auscultation bilaterally. No wheezing. Gastrointestinal: Abdomen is soft, nontender, nondistended. Positive bowel sounds. Extremities: No clubbing, cyanosis, edema. Neurologic: Nonfocal. SA/MODL Voice ID: [id number] Report ID: [id number]
[2018-04-25] MEDS ORDERED: FLUOXETINE 10 MG CAP PO SCH (09:00)
[2018-04-25] MEDS ORDERED: NIFEDIPINE XL 60 MG TABLET PO SCH (09:00)
--- NOTE | 2018-04-25 12:10 | PN ---
The patient had been admitted on 04/23/[address] Myers's service, was seen by Dr. Martínez for chest pain. He has a history of end-stage renal disease, hypertension, benign prostatic hypertrophy. He h ad a very low TSH. A stress test was done today, was normal. An echocardiogram was normal. I would suggest he can go home. He sees Dr. Andrew and he should follow up with him. He may need his thyroid evaluated further because of his very low TSH. His main complaint was palpitations. He does take Co reg 3.125 twice a day and may be reasonable to increase that. ISMAEL/BETTINA Voice ID: [id number] Report ID: [id number]
== END 2018-04-24 19:50 | disposition home or self-care (01) ==
LOC: ER 13:05 → ERHOLD 14:04 → 2ND 17:34
PROVIDERS: ADMIT Family Medicine; ATTEND Family Medicine
PROC: 5A1D70Z Performance of Urinary Filtration, Intermittent, Less than 6 Hours Per Day (ICD-10-PCS; principal; 2018-04-24)
DX: R07.9 Chest pain, unspecified (principal); R00.2 Palpitations; I13.11 Hypertensive heart and chronic kidney disease without heart failure, with stage 5 chronic kidney disease, or end stage renal disease; E11.22 Type 2 diabetes mellitus with diabetic chronic kidney disease; E11.65 Type 2 diabetes mellitus with hyperglycemia; N18.6 End stage renal disease; Z99.2 Dependence on renal dialysis; D50.9 Iron deficiency anemia, unspecified
CPT/HCPCS: 36415; 71045; 78452; 80048 ×2; 80061; 80076; 82550; 82553; 82962 ×4; 83690; 83735; 83880; 84443; 84484 ×3; 85025 ×2; 85610; 85730; 93005; 93017; 93306; 94760 ×3; 99285; A9500; G0257; G0378 ×2; J1650; J2785; 81003; 81015

== ENCOUNTER 2019-02-21 14:34 | Emergency (ER) | payer OTHER ==
--- OUTSIDE RECORDS SUMMARY | 2019-02-21 15:00 | XMS REPORT | Continuity of Care Document ---
:1960 Author Organization Interface Problems Problem Status Onset Classification Date Comments Source Date Reported Other specified 02/10/2019 complication of 018 [place] vascular prosthetic devices, implants and grafts, initial encounter Unspecified 02/06/2019 complication of 018 [place] internal prosthetic device, implant and graft, initial encounter ESRD NEEDING DIALYSIS, Active [facility] ACUTE PULMONARY E 018 [place] REFERRAL Active [facility] 018 [place] Acute hyperkalemia 02/06/2019 018 [place] Complication of 02/06/2019 intraperitoneal 018 [place] dialysis catheter REFFERAL Active [facility] 018 [place] RENAL/DO NOT USE FOR Active [facility] CHARGES F/C NOTES O [address] [place] [address] NEW EVALUATION Active [address] HYPERTENSIVE URGENCY, Active [facility] CHEST PAIN 018 [place] CHEST PAIN Active [facility] 018 [place] ACUTE DYSPNEA Active [facility] 018 [place] WEAKNESS Active [facility] 018 [place] CKD 01/25/2018 Tabatha [place] IN NEED OF DIALYSIS Active [facility] 018 [place] 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/28/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 018 [place] failure SOB Active [facility] 018 [place] ACUTE RENAL FAILURE, Active [facility] FLUID OVERLOAD, CHF 018 [place] Hyperkalemia 02/06/2019 [place] Type 2 diabetes 02/10/2019 mellitus with diabetic [place] chronic kidney disease 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 End stage renal 02/10/2019 disease [facility] Dependence on renal 02/10/2019 dialysis Ambrose [facility] Anxiety disorder, 02/06/2019 unspecified [place] Sleep apnea, 02/10/2019 unspecified [place] 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/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 [place] Pericardial effusion 02/10/2019 [place] Nausea 02/06/[address] [facility] Other symptoms and 02/06/2019 signs concerning food [place] and fluid intake Anxiety Res[facility] on [facility](<span Active Problem 02/10/2019 ID="[id number]">Eduarda Ambrose Cody liana</span>) [facility] Hypertension Resolved Problem [facility] Pericardial effusion [facility] Simple obesity Active Problem 02/10[facility] Sleep apnea Resolved Problem [facility]/10[facility] Type 2 diabetes 01/08/2019 [facility] mellitus without Medical complications [place] Acute pulmonary edema 02/10/[address] [facility] Acute kidney failure, 02/10/2019 unspecified [place] Fluid overload, 02/10/2019 unspecified [place] Obesity, unspecified 02/10/[address] [facility] Body mass index 02/10/2019 33.0-33.9, adult [place] Chronic obstructive 02/10/2019 pulmonary disease, [place] unspecified Dyspnea, unspecified 03/23/[address] [facility] Hypocalcemia 03/28/[address] [facility] Other disorders of 03/28/2018 phosphorus metabolism [place] Hypo-osmolality and 03/28/2018 hyponatremia [place] Iron deficiency 03/28/2018 anemia, unspecified [place] Secondary 03/28/2018 hyperparathyroidism of [place] renal origin Acute diastolic heart 03/28/2018 failure [place] Anemia in other 03/28/2018 chronic diseases [place] classified elsewhere Atherosclerosis of 03/28/2018 renal artery [place] Obstructive sleep 03/28/2018 apnea (pediatric) [place] END STAGE RENAL Active [facility] DISEASE [place] ACUTE PULMONARY EDEMA Active [facility] [place] ACUTE KIDNEY FAILURE, [facility] [place] DYSPNEA, U[facility]PECIFIED [facility] [place] FLUID OVERLOAD, Active [facility] UNSPECIFIED [place] HEART FAILURE, Active [facility] UNSPECIFIED [place] Medications Medication Details Route Status Patient Ordering Order Source Instructions Provider Date NIFEdipine 60 mg 60 mg=1 tab, Active oral tablet, PO, Daily, # 2018 [place] extended release 30 tab, 0 Refill(s), Pharmacy: [id number] heparin 10,000 unit, Inactive MH 10 mL, Route: 2017 [place] DIALYSIS, Drug form: INJ, ONCALL, Dosing Weight 102.273, kg, PRN Dialysis, Start date: 07/24/18 10:21:00 CDT, Duration: 1 doses or times, Stop date: Limited # of times Dilaudid 2 mg, 1 tab, No Longer Route: PO, Active 2017 [place] Drug form: TAB, Q4H, PRN Pain Score 7-10, Start date: 07/23/18 14:17:00 CDT, Duration: 30 day, Stop date: 08/22/18 14:16:00 CSTNotes: (Same as: Dilaudid) heparin 10,000 unit, Inactive 10 mL, Route: 2017 [place] DIALYSIS, Drug form: INJ, ONCALL, Dosing Weight 102.273, kg, Start date: 07/23/18 8:00:00 CDT, Duration: 1 doses or times Sodium Chloride 2,000 mL, No Longer 0.9% IV 2,000 mL Rate: for Active 2017 [place] dialysis, Route: IV, Dosing Weight 102.273 kg, Total Volume: 2,000, Start date: 07/23/18 7:22:00 CDT, Duration: 1 day, Stop date: 07/24/18 7:21:00 CDT, 2.23, m2 zolpidem 10 mg, Route: Inactive PO, Drug form: 2017 [place] TAB, Bedtime, Dosing Weight 102.273, kg, Start date: 07/22/18 21:00:00 CDT, Duration: 30 day, Stop date: 08/20/18 21:00:00 [employer]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 Take 1 hour before or 2 hours after meal; "Avoid grapefruit and grapefruit juice". Do not crush multivitamin 1 tab, Route: No Longer PO, Drug Form: Active 2018 [place] TAB, Dosing Weight 102.273, kg, Daily, Start date: 07/22/18 9:00:00 CDT, Duration: 30 day, Stop date: 08/20/18 9:00:00 CSTNotes: (Same as:One Tab Daily, Tab-A-Conor + Beta Carotene) Give with food. Hydralazine 50 mg, 1 tab, No Longer Hydrochloride 50 Route: PO, Active 2018 [place] MG Oral Tablet Drug form: TAB, TID, Dosing Weight 102.273, kg, Start date: 07/22/18 9:00:00 CDT, Duration: 30 day, Stop date: 08/20/18 17:00:00 CSTNotes: (Same as: Apresoline) May interfere w/enteral feedings Take With Food Lasix 80 mg, 2 tab, No Longer Route: PO, Active 2017 [place] Drug form: TAB, BID, Dosing Weight 102.273, kg, Start date: 07/22/18 9:00:00 CDT, Duration: 30 day, Stop date: 08/20/18 17:00:00 CSTNotes: (Same as: Lasix) May cause GI upset. Give with food or milk. carvedilol 3.125 mg, 1 No Longer tab, Route: Active 2018 [place] PO, Drug form: TAB, Q12H, Dosing Weight 102.273, kg, Start date: 07/22/18 9:00:00 CDT, Duration: 30 day, Stop date: 08/20/18 21:00:00 CSTNotes: Give with food. (Same As: Coreg) calcium acetate 2,001 mg, 3 No Longer 667 MG Oral cap, Route: Active 2018 [place] Capsule PO, Drug form: CAP, TID, Dosing Weight 102.273, kg, Start date: 07/22/18 9:00:00 CDT, Duration: 30 day, Stop date: 08/20/18 17:00:00 CSTNotes: Same as Phoslo Gel Cap Amlodipine 10 mg, 2 tab, No Longer Route: PO, Active 2018 [place] Drug form: TAB, Daily, Dosing Weight 102.273, kg, Start date: 07/22/18 9:00:00 CDT, Duration: 30 day, Stop date: 08/20/18 9:00:00 CSTNotes: (Same as: Norvasc) Docusate 100 mg, 1 cap, No Longer Route: PO, Active 2018 [place] Drug form: CAP, BID, Dosing Weight 96.7, kg, Start date: 07/22/18 9:00:00 CDT, Duration: 30 day, Stop date: 08/20/18 17:00:00 CSTNotes: (Same as: Colace) (Do Not Crush) carvedilol 12.5 37.5 mg=3 tab, Active mg oral tablet PO, BID, 0 2018 [place] Refill(s) calcium acetate See Active 667 MG Oral Instructions, 2018 [place] Capsule 0 Refill(s) Hydralazine 50 mg, PO, Active [facility] TID, 0 2018 [place] Refill(s) Amlodipine 10 MG 1 cap, PO, Active / Benazepril TID, 0 2018 [place] hydrochloride 20 Refill(s) MG Oral Capsule Hydroxyzine 25 mg, 1 tab, No Longer Hydrochloride 25 Route: PO, Active 2018 [place] MG Oral Tablet Drug form: TAB, TID, Dosing Weight 102.273, kg, PRN Anxiety, Start date: 07/22/18 6:31:00 CDT, Duration: 30 day, Stop date: 08/21/18 6:30:00 CSTNotes: (Same as: Atarax) Avoid alcohol. Alprazolam 2 MG 2 mg, 2 tab, No Longer Oral Tablet Route: PO, Active 2017 [place] [Xanax] Drug form: TAB, BID, Dosing Weight 102.273, kg, PRN Anxiety, Start date: 07/22/18 6:31:00 CDT, Duration: 30 day, Stop date: 08/21/18 6:30:00 CSTNotes: With food or milk (Same as: Xanax) Dilaudid 0.5 mg, 0.5 No Longer mL, Route: Active 2017 [place] IVP, Drug form: INJ, Q4H, Dosing Weight 102.273, kg, PRN Pain Score 7-10, Start date: 07/22/18 6:27:00 CDT, Duration: 30 day, Stop date: 08/21/18 6:26:00 CSTNotes: Same as: Dilaudid Dilaudid 1 mg, Route: Inactive IVP, ONCE, 2017 [place] Dosing Weight 96.7, kg, Priority: STAT, Start date: 07/22/18 4:04:00 CDT, Stop date: 07/22/18 4:04:00 CDT Dilaudid 1 mg, Route: Inactive IVP, ONCE, 2017 [place] Dosing Weight 96.7, kg, Priority: STAT, Start date: 07/22/18 2:16:00 CDT, Stop date: 07/22/18 2:16:00 CDT heparin 10,000 unit, No Longer 10 mL, Route: Active 2017 [place] DIALYSIS, Drug form: INJ, ONCALL, Dosing Weight 96.7, kg, Start date: 07/22/18 1:00:00 CDT, Duration: 1 doses or times Mannitol 25 gm, 100 mL, No Longer Route: IVPB, Active 2017 [place] Drug form: INJ, ONCE, Dosing Weight 96.7, kg, Start date: 07/22/18 0:43:00 CDT, Stop date: 07/22/18 0:43:00 CDTNotes: (Same as: Osmitrol) Infuse through 5 micron or smaller filter WASTE: F/P - Sink; E - Municipal Trash Bin normal saline 1,000 mL, No Longer 0.9% IV 1,000 mL Rate: for Active 2017 [place] dialysis prime and rinseback only, Rate: 0 ml/hr, Infuse over: 0, Route: IV, Dosing Weight 96.7 kg, Total Volume: 1,000, Start date: 07/22/18 0:43:00 CDT, Duration: 30 day, Stop date: 08/21/18 0:42:00 [employer] PRESIDENT, 2.16, m2 Acetaminophen 325 mg, 1 tab, No Longer Route: PO, Active 2017 [place] Drug form: TAB, Q4H, Dosing Weight 96.7, kg, PRN Pain Score 4-6, Start date: 07/22/18 0:22:00 CDT, Duration: 30 day, Stop date: 08/21/18 0:21:00 CSTNotes: Do not exceed 4 gm/day. (Same as: Tylenol) Morphine 2 mg, 2 mL, No Longer Route: IVP, Active 2017 [place] Drug form: SOLN, Q4H, Dosing Weight 96.7, kg, PRN Pain Score 7-10, Start date: 07/22/18 0:22:00 CDT, Duration: 30 day, Stop date: 08/21/18 0:21:00 CSTNotes: Preservative free. (Same as: Morphine Sulfate-PF) Ondansetron 4 mg, 2 mL, No Longer Route: IVP, Active 2017 [place] Drug form: INJ, Q6H, Dosing Weight 96.7, kg, PRN Nausea & Vomiting, Start date: 07/22/18 0:22:00 CDT, Duration: 30 day, Stop date: 08/21/18 0:21:00 CSTNotes: (Same as: Zofran) MEDICATION WASTE Product Size: 4 mg Product Wasted: ___ mg Dilaudid 0.5 mg, 0.5 Inactive mL, Route: 2017 [place] IVP, Drug form: INJ, ONCE, Dosing Weight 96.7, kg, Priority: STAT, Start date: 07/22/18 0:07:00 CDT, Stop date: 07/22/18 0:07:00 CDTNotes: Same as: Dilaudid Zofran 4 mg, 2 mL, No Longer Route: IVP, Active 2017 [place] Drug form: INJ, ONCE, Dosing Weight 96.7, kg, Start date: 07/21/18 23:47:00 CDT, Stop date: 07/21/18 23:47:00 CDTNotes: (Same as: Zofran) MEDICATION WASTE Product Size: 4 mg Product Wasted: ___ mg Dilaudid 0.5 mg, 0.5 No Longer mL, Route: Active 2017 [place] IVP, Drug form: INJ, ONCE, Dosing Weight 96.7, kg, Priority: STAT, Start date: 07/21/18 23:46:00 CDT, Stop date: 07/21/18 23:46:00 CDTNotes: Same as: Dilaudid Hydromorphone 0.5 mg, 0.5 Inactive mL, Route: 2017 [place] IVP, Drug form: INJ, ONCE, Dosing Weight 96.7, kg, Priority: STAT, Start date: 07/21/18 23:13:00 CDT, Stop date: 07/21/18 23:13:00 CDTNotes: Same as: Dilaudid Saline Flush 10 mL, Route: No Longer 0.9% IVP, Drug Active 2017 [place] Form: INJ, Dosing Weight 96.7, kg, PRN, PRN Line Flush, Start date: 07/21/18 21:24:00 CDT, Duration: 30 day, Stop date: 08/20/18 20:23:00 CSTNotes: (Same as: BD Posiflush) lactulose 10 g =1 Pack, PO, No Longer oral powder Daily, X 2 Active 2017 [place] day, # 30 ea, 0 Refill(s) Sodium 15 gm, PO, No Longer polystyrene Daily, X 2 Active 2017 [place] sulfonate 250 day, # 30 gm, MG/ML Oral 0 Refill(s) Suspension [Kayexalate] Kayexalate 15 gm, 60 mL, Inactive Route: PO, 2018 [place] Drug form: SUSP, ONCE, Dosing Weight 93.636, kg, Priority: STAT, Start date: 07/20/18 18:39:00 CDT, Stop date: 07/20/18 18:39:00 CDTNotes: (sodium polystyrene sulfonate 15 gm/60 ml CANDACE) Shake well before use. (Same as: Kayexalate, SPS) Ascorbic Acid 60 1 tab, PO, Active [place] MG / Calcium Daily, 0 2018 [facility] Pantothenate 10 Refill(s) Center MG / D-BIOTIN 0.3 MG / Folic Acid 0.8 MG / Niacinamide 20 MG / pyridoxine 10 MG / Riboflavin 1.7 MG / Thiamine 1.5 MG / Vitamin B 12 0.006 MG Oral Tablet [Fauzia-Conor] zolpidem 10 mg 10 mg=1 tab, Active [place] oral tablet PO, Bedtime, 0 2017 [facility] Refill[facility] Center Lorazepam 1 MG 1 mg=1 tab, Active [facility] Oral Tablet PO, PRN, 0 2017 [facility] Refill[facility] Center amLODIPine 10 mg 10 mg=1 tab, Active [facility] oral tablet PO, Daily, 0 2018 [facility] Center tamsulosin 0.4 mg, 1 cap, Inactive Route: PO, 2017 [place] Drug form: CAP, Bedtime, Dosing Weight 74.091, kg, Start date: 04/15/18 21:00:00 CDT, Duration: 30 day, Stop date: 05/14/18 21:00:00 CDTNotes: (Same As: Flomax) "Do Not Crush" Hydralazine 50 mg=1 tab, Active Hydrochloride 50 PO, TID, # 90 2018 [place] MG Oral Tablet tab, 0 Refill(s) NIFEdipine 60 mg 60 mg=1 tab, Active oral tablet, PO, Daily, # 2018 [place] extended release 30 tab, 0 Refill(s) carvedilol 3.125 3.125 mg=1 Active mg oral tablet tab, PO, Q12H, 2018 [place] # 60 tab, 0 Refill(s) Potassium 20 mEq, 1 tab, Inactive Chloride Route: PO, 2017 [place] Drug form: ERTAB, ONCE, Dosing Weight 87.784, kg, Start date: 04/15/18 15:22:00 CDT, Stop date: 04/15/18 15:22:00 CDTNotes: (Same as: K-Dur 20) "Do Not Crush" For patients unable to swallow tablet, dissolve in one half glass of water. Allow about 2 minutes for the tablets to disintegrate. Stir before giving to prepare slurry and administer. Please exclude Patient’ s with feeding tube less than 14 [place] (Dobhoff, J-tube etc) and pediatric and patients. With food and full glass of water Hydralazine 25 mg, 1 tab, Inactive Hydrochloride 25 Route: PO, 2017 [place] MG Oral Tablet Drug form: TAB, TID, Dosing Weight 74.091, kg, Start date: 04/15/18 9:00:00 CDT, Duration: 30 day, Stop date: 05/14/18 17:00:00 CDTNotes: (Same as: Apresoline) May interfere w/enteral feedings Take With Food. Lasix 80 mg, 2 tab, Inactive Route: PO, 2017 [place] Drug form: TAB, BID, Dosing Weight 74.091, kg, Start date: 04/15/18 9:00:00 CDT, Duration: 30 day, Stop date: 05/14/18 17:00:00 CDTNotes: (Same as: Lasix) May cause GI upset. Give with food or milk. Acetaminophen 1 tab, Route: Inactive 325 MG / PO, Drug Form: 2017 [place] Oxycodone TAB, Dosing Hydrochloride 5 Weight 74.091, MG Oral Tablet kg, BID, Start [Percocet 5/325] date: 04/15/18 9:00:00 CDT, Duration: 30 day, Stop date: 05/14/18 17:00:00 CDT carvedilol 3.125 mg, 1 Inactive tab, Route: 2018 [place] PO, Drug form: TAB, Q12H, Dosing Weight 74.091, kg, Start date: 04/15/18 9:00:00 CDT, Duration: 30 day, Stop date: 05/14/18 21:00:00 CDTNotes: Give with food. (Same As: Coreg) calcium acetate 2,001 mg, 3 Inactive 667 MG Oral cap, Route: 2018 [place] Capsule PO, Drug form: CAP, TID, Dosing Weight 74.091, kg, Start date: 04/15/18 9:00:00 CDT, Duration: 30 day, Stop date: 05/14/18 17:00:00 CDTNotes: Same as Phoslo Gel Cap Amlodipine 10 mg, 2 tab, Inactive Route: PO, 2017 [place] Drug form: TAB, Daily, Dosing Weight 74.091, kg, Start date: 04/15/18 9:00:00 CDT, Duration: 30 day, Stop date: 05/14/18 9:00:00 CDTNotes: (Same as: Norvasc) Morphine 2 mg, 1 mL, Inactive Route: IVP, 2017 [place] Drug form: SOLN, Q4H, Dosing Weight 87.784, kg, PRN Pain Score 6-10, Start date: 04/15/18 4:49:00 CDT, Duration: 30 day, Stop date: 05/15/18 4:48:00 CDT Ambien 5 mg, 1 tab, Inactive Route: PO, 2017 [place] Drug form: TAB, Bedtime, Dosing Weight 87.784, kg, PRN as needed for insomnia, Priority: NOW, Start date: 04/15/18 3:47:00 CDT, Duration: 30 day, Stop date: 05/15/18 3:46:00 CDTNotes: (Same As: Ambien) Hydroxyzine 25 mg=1 tab, Active Hydrochloride 25 PO, TID, PRN 2018 [place] MG Oral Tablet Anxiety, # 40 tab, 0 Refill(s) Insulin Lispro 2 unit, 0.02 Inactive mL, Route: 2018 [place] SUB-Q, Drug form: SOLN, TID-Before Meals, Dosing Weight 74.091, kg, PRN Blood Glucose Results, Start date: 04/15/18 2:15:00 CDT, Duration: 30 day, Stop date: 05/15/18 2:14:00 CDTNotes: (Same as: Humalog ) Roll in palms of hands gently; Do not shake `vigorously. "Single Patient Use Only " WASTE: F/P - Black; E - Municipal Trash Bin Stable for 28 days at room temperature. Expires in days from Date Dextrose 50% 25 gm, 50 mL, Inactive Syringe Route: IVP, 2017 [place] Drug Form: INJ, Dosing Weight 74.091, kg, PRN, PRN Blood Glucose Results, Start date: 04/15/18 2:15:00 CDT, Duration: 30 day, Stop date: 05/15/18 2:14:00 CDT Glucagon 1 mg, Route: Inactive IM, Drug form: 2018 [place] PDR/INJ, PRN, Dosing Weight 74.091, kg, PRN Blood Glucose Results, Start date: 04/15/18 2:15:00 CDT, Duration: 30 day, Stop date: 05/15/18 2:14:00 CDT Ergocalciferol 50,000 Inactive 41274 UNT Oral IntlUnit, 1 2018 [place] Capsule cap, Route: PO, Drug form: CAP, qWeek, Dosing Weight 74.091, kg, Start date: 04/15/18 2:00:00 CDT, Duration: 30 day, Stop date: 05/13/18 9:00:00 CDT Alprazolam 2 MG 2 mg, 2 tab, Inactive Oral Tablet Route: PO, 2018 [place] [Xanax] Drug form: TAB, BID, Dosing Weight 74.091, kg, PRN Anxiety, Start date: 04/15/18 1:56:00 CDT, Duration: 30 day, Stop date: 05/15/18 1:55:00 CDTNotes: With food or milk (Same as: Xanax) NS (Bolus) IV 250 mL, 500 Inactive ml/hr, Infuse 2017 [place] Over: 0.5 hr, Route: IV, 250, Drug form: INJ, ONCE, Priority: STAT, Dosing Weight 74.091 kg, Start date: 04/15/18 1:34:00 CDT, Stop date: 04/15/18 1:34:00 CDT Hydralazine 10 mg, Route: Inactive IVP, ONCE, 2017 [place] Dosing Weight 74.091, kg, Priority: STAT, Start date: 04/15/18 1:27:00 CDT, Stop date: 04/15/18 1:27:00 CDT Amlodipine 10 mg, 2 tab, Inactive Route: PO, 2017 [place] Drug form: TAB, ONCE, Dosing Weight 74.091, kg, Start date: 04/14/18 22:50:00 CDT, Stop date: 04/14/18 22:50:00 CDTNotes: (Same as: Norvasc) Hydralazine 10 mg, 0.5 mL, Inactive Route: IVP, 2017 [place] Drug form: INJ, ONCE, Dosing Weight 74.091, kg, Priority: STAT, Start date: 04/14/18 22:50:00 CDT, Stop date: 04/14/18 22:50:00 CDTNotes: (Same as: Apresoline) Push over 5 minutes Clonidine 0.1 mg, Route: Inactive Hydrochloride PO, Drug form: 2018 [place] 0.1 MG Oral TAB, ONCE, Tablet Dosing Weight 74.091, kg, Priority: STAT, Start date: 04/14/18 22:02:00 CDT, Stop date: 04/14/18 22:02:00 CDT Clonidine 0.1 mg, 1 tab, Inactive Hydrochloride Route: PO, 2017 [place] 0.1 MG Oral Drug form: Tablet TAB, ONCE, Dosing Weight 74.091, kg, Priority: STAT, Start date: 04/14/18 19:45:00 CDT, Stop date: 04/14/18 19:45:00 CDTNotes: (Same As: Catapres) Saline Flush 10 mL, Route: No Longer 0.9% IVP, Drug Active 2017 [place] Form: INJ, Dosing Weight 74.091, kg, PRN, PRN Line Flush, Start date: 04/14/18 18:55:00 CDT, Duration: 30 day, Stop date: 05/14/18 18:54:00 CDTNotes: (Same as: BD Posiflush) vancomycin + 500 mg, Route: Inactive Sodium Chloride IVPB, ONCE, 2017 [place] 0.9% IV 100 mL Start date: 03/19/18 13:00:00 CDT, Stop date: 03/19/18 13:00:00 CDT, ABX Indication: Other (specify in Comments)Notes : TIME CRITICAL MEDICATION (Same As: Vancocin) For adult patients only: Round to nearest 250 mg per Medical Staff approval cefdinir 300 MG 300 mg=1 cap, Active Oral Capsule PO, Q12H, X 7 2017, # 14 cap, 0 Refill(s), Pharmacy: [id number] heparin 10,000 unit, No Longer 10 mL, Route: Active 2017 [place] DIALYSIS, Drug form: INJ, ONCALL, Dosing Weight 100.455, kg, Start date: 03/19/18 10:00:00 CDT, Duration: 1 doses or times Sodium Chloride 1,000 mL, No Longer 0.9% IV 1,000 mL Rate: 2000, 2017 [place] Route: IV, Dosing Weight 100.455 kg, Total Volume: 1,000, Start date: 03/19/18 9:14:00 CDT, Duration: 1 doses or times, Stop date: 03/20/18 9:13:00 CDT, 2.19, m2 Tylenol 325 mg, 1 tab, No Longer Route: PO, Active 2017 [place] Drug form: TAB, BID, Start date: 03/18/18 18:00:00 CDT, Duration: 30 day, Stop date: 04/17/18 17:00:00 CDTNotes: Do not exceed 4 gm/day. (Same as: Tylenol) Roxicodone 5 mg, 1 tab, No Longer Route: PO, Active 2017 [place] Drug form: TAB, BID, Start date: 03/18/18 18:00:00 CDT, Duration: 30 day, Stop date: 04/17/18 17:00:00 CDTNotes: (Same as: Roxicodone) Acetaminophen 1 tab, Route: Inactive 325 MG / PO, Drug Form: 2017 [place] Oxycodone TAB, Dosing Hydrochloride 5 Weight MG Oral Tablet 100.455, kg, [Percocet 5/325] BID, Start date: 03/18/18 17:00:00 CDT, Duration: 30 day, Stop date: 04/17/18 9:00:00 CDTNotes: Do not exceed 4gm/day of acetaminophen. (Same as: Percocet-5/325 ) Amlodipine 10 mg, 2 tab, No Longer Route: PO, Active 2017 [place] Drug form: TAB, Daily, Dosing Weight 100.455, kg, Start date: 03/18/18 9:00:00 CDT, Duration: 30 day, Stop date: 04/16/18 9:00:00 CDTNotes: (Same as: Norvasc) Alprazolam 2 MG 2 mg, 2 tab, No Longer Oral Tablet Route: PO, Active 2017 [place] [Xanax] Drug form: TAB, BID, Dosing Weight 100.455, kg, PRN as needed for anxiety, Start date: 03/17/18 23:20:00 CDT, Duration: 30 day, Stop date: 04/16/18 23:19:00 CDTNotes: With food or milk (Same as: Xanax) Vancomycin 500 mg, Route: Inactive Pharmacy Dosing IVPB, ONCE, 2017 [place] + Sodium Start date: Chloride 0.9% IV 03/17/18 250 mL 22:00:00 CDT, Stop date: 03/17/18 22:00:00 CDT, ABX Indication: PneumoniaNotes : TIME CRITICAL MEDICATION (Same As: Vancocin) Infusion rate 2001 mg: infuse over 2.5 hours For adult patients only: Round to nearest 250 mg per Medical Staff approval MEDICATION WASTE Product Size: 1000 mg Product Wasted: ___ mg tamsulosin 0.4 mg, 1 cap, No Longer Route: PO, Active 2017 [place] Drug form: CAP, Bedtime, Dosing Weight 100.455, kg, Start date: 03/17/18 21:00:00 CDT, Duration: 30 day, Stop date: 04/15/18 21:00:00 CDTNotes: (Same As: Flomax) "Do Not Crush" carvedilol 3.125 mg, 1 No Longer tab, Route: Active 2018 [place] PO, Drug form: TAB, Q12H, Dosing Weight 100.455, kg, Start date: 03/17/18 21:00:00 CDT, Duration: 30 day, Stop date: 04/16/18 9:00:00 CDTNotes: Give with food. (Same As: Coreg) Hydralazine 25 mg, 1 tab, Inactive Hydrochloride 25 Route: PO, 2018 [place] MG Oral Tablet Drug form: TAB, TID, Dosing Weight 100.455, kg, Start date: 03/17/18 17:00:00 CDT, Duration: 30 day, Stop date: 04/16/18 13:00:00 CDTNotes: (Same as: Apresoline) May interfere w/enteral feedings Take With Food. Lasix 80 mg, 4 tab, No Longer Route: PO, Active 2017 [place] Drug form: TAB, BID, Dosing Weight 100.455, kg, Start date: 03/17/18 17:00:00 CDT, Duration: 30 day, Stop date: 04/16/18 9:00:00 CDTNotes: (Same as: Lasix) May cause GI upset. Give with food or milk. Hydralazine 10 mg, 0.5 mL, No Longer Route: IVP, Active 2017 [place] Drug form: INJ, Q4H, Dosing Weight 100.455, kg, PRN Elevated BP, Start date: 03/17/18 15:10:00 CDT, Duration: 30 day, Stop date: 04/16/18 15:09:00 CDTNotes: (Same as: Apresoline) Push over 5 minutes Acetaminophen 1 tab, Route: No Longer 325 MG / PO, Drug Form: Active 2018 [place] Hydrocodone TAB, Dosing Bitartrate 5 MG Weight Oral Tablet 100.455, kg, [Davey 5/325] Q4H, PRN Pain Score 4-6, Start date: 03/17/18 15:10:00 CDT, Duration: 30 day, Stop date: 04/16/18 15:09:00 CDTNotes: (Same as: Davey 325/5) Do not exceed 4gm/day of acetaminophen. phenol 1 spray, No Longer Route: TOP, Active 2017 [place] TID, Drug form: SPRY, PRN Sore Throat, Start date: 03/17/18 15:08:00 CDT, Duration: 30 day, Stop date: 04/16/18 15:07:00 CDTNotes: Chloraseptic Lyle (Same as: Chloraseptic, Sore Throat L[place]) WASTE: F/P - Black; E - [facility] Trash [facility] Furosemide 80 MG 80 mg=1 tab, Active Oral Tablet PO, BID, 0 2017 [place] [Lasix] Refill(s) amLODIPine 10 mg 10 mg=1 tab, Active oral tablet PO, Daily, # 2018 [place] 30 tab, 0 Refill(s) carvedilol 3.125 3.125 mg=1 Active mg oral tablet tab, PO, Q12H, 2018 [place] # 60 tab, 0 Refill(s) calcium acetate 2,001 mg=3 Active 667 MG Oral cap, PO, TID, 2018 [place] Capsule 0 Refill(s) Acetaminophen 1 tab, PO, Active 325 MG / BID, 0 2018 [place] Oxycodone Refill(s) Hydrochloride 5 MG Oral Tablet [Percocet 5/325] Hydralazine 25 mg=1 tab, Active Hydrochloride 25 PO, TID, # 270 2018 [place] MG Oral Tablet tab, 1 Refill(s) tamsulosin 0.4 0.4 mg=1 cap, Active mg oral capsule PO, Bedtime, 0 2017 [place] Refill(s) heparin 5,000 unit, 1 No Longer mL, Route: Active 2017 [place] SUB-Q, Drug form: INJ, Q12H, Dosing Weight 98.182, kg, Start date: 03/17/18 9:00:00 CDT, Duration: 30 day, Stop date: 04/15/18 21:00:00 CDTNotes: porcine heparin heparin 10,000 unit, No Longer 10 mL, Route: Active 2018 [place] DIALYSIS, Drug form: INJ, ONCALL, Dosing Weight 100.455, kg, Start date: 03/17/18 8:00:00 CDT, Duration: 1 doses or times Mannitol 12.5 gm, 50 Inactive mL, Route: 2018 [place] IVPB, Drug form: INJ, ONCE, Dosing Weight 100.455, Start date: 03/17/18 7:41:00 CDT, Stop date: 03/17/18 7:41:00 CDTNotes: (Same as: Osmitrol) Infuse through 5 micron or smaller filter WASTE: F/P - Sink; E - [facility] Vancomycin Route: MISC, No Longer Drug form: Active 2017 [place] INJ, ONCALL, Dosing Weight 98.182, kg, Start date: 03/17/18 7:00:00 CDT, Duration: 7 day, Stop date: 03/24/18 6:59:00 CDT, Pharmacy to dose, ABX Indication: PneumoniaNotes : TIME CRITICAL MEDICATION (Same As: Vancocin) Infusion rate 2001 mg: infuse over 2.5 hours For adult patients only: Round to nearest 250 mg per Medical Staff approval MEDICATION WASTE Product Size: 1000 mg Product Wasted: ___ mg Sodium Chloride 2,000 mL, 2000 No Longer 0.9% (Bolus) IV ml/hr, Infuse Active 2017 [place] Over: 1 hr, Route: IV, 2,000, Drug form: INJ, ONCE, Priority: STAT, Dosing Weight 98.182 kg, Start date: 03/17/18 7:00:00 CDT, PRN Dialysis cefepime 1 gm, Route: No Longer IVPB, [id number], Active 2017 [place] Dosing Weight 98.182, kg, (CrCl Notes: (Same As: Maxipime) MEDICATION WASTE Product Size: 1000 mg Product Wasted: ___ mg Saline Flush 10 ml, Route: No Longer 0.9% IVP, Drug Active 2017 [place] Form: INJ, Dosing Weight 98.182, kg, PRN, PRN Line Flush, Start date: 03/17/18 6:53:00 CDT, Duration: 30 day, Stop date: 04/16/18 6:52:00 CDTNotes: (Same as: BD Posiflush) Acetaminophen 650 mg, 2 tab, No Longer Route: PO, Active 2018 [place] Drug form: TAB, Q4H, Dosing Weight 98.182, kg, PRN Pain 1-3/Temp > 100.4 F, Start date: 03/17/18 6:53:00 CDT, Duration: 30 day, Stop date: 04/16/18 6:52:00 CDTNotes: Do not exceed 4 gm/day. (Same as: Tylenol) Insulin Lispro 4 unit, 0.04 No Longer mL, Route: Active 2017 [place] SUB-Q, Drug form: SOLN, TID-Before Meals, Dosing Weight 98.182, kg, PRN Blood Glucose Results, Start date: 03/17/18 6:49:00 CDT, Duration: 30 day, Stop date: 04/16/18 6:48:00 CDTNotes: (Same as: Humalog ) Roll in palms of hands gently; Do not shake `vigorously. "Single Patient Use Only " WASTE: F/P - Black; E - [facility] Trash Bin Stable for 28 days at room temperature. Expires in days from Date Glucagon 1 mg, Route: No Longer IM, Drug form: Active 2018 [place] PDR/INJ, PRN, Dosing Weight 98.182, kg, PRN Blood Glucose Results, Start date: 03/17/18 6:49:00 CDT, Duration: 30 day, Stop date: 04/16/18 6:48:00 CDT Dextrose 50% 25 gm, 50 mL, No Longer Syringe Route: IVP, Active 2017 [place] Drug Form: INJ, Dosing Weight 98.182, kg, PRN, PRN Blood Glucose Results, Start date: 03/17/18 6:49:00 CDT, Duration: 30 day, Stop date: 04/16/18 6:48:00 CDT Zosyn 4.5 gm, Route: Inactive IVPB, ONCE, 2017 [place] Dosing Weight 98.182, kg, Priority: STAT, Start date: 03/17/18 5:49:00 CDT, Stop date: 03/17/18 5:49:00 CDT, ABX Indication: PneumoniaNotes : (Same as: Zosyn) Dosing based on Piperacillin component MEDICATION WASTE Product Size: 4500 mg Product Wasted: ___ mg Vancomycin 2,000 mg, Inactive Route: IVPB, 2017 [place] ONCE, Dosing Weight 98.182, kg, Priority: STAT, Start date: 03/17/18 5:49:00 CDT, Stop date: 03/17/18 5:49:00 CDT, ABX Indication: PneumoniaNotes : TIME CRITICAL MEDICATION (Same As: Vancocin) Infusion rate 2001 mg: infuse over 2.5 hours For adult patients only: Round to nearest 250 mg per Medical Staff approval MEDICATION WASTE Product Size: 1000 mg Product Wasted: ___ mg Saline Flush 10 mL, Route: No Longer 0.9% IVP, Drug Active 2017 [place] Form: INJ, Dosing Weight 118.182, kg, PRN, PRN Line Flush, Start date: 03/17/18 2:36:00 CDT, Duration: 30 day, Stop date: 04/16/18 2:35:00 CDTNotes: (Same as: BD Posiflush) Saline Flush 10 mL, Route: Inactive 0.9% IVP, Drug 2017 [place] Form: INJ, Dosing Weight 98.6, kg, PRN, PRN Line Flush, Start date: 01/22/18 19:31:00 CDT, Duration: 30 day, Stop date: 02/21/18 19:30:00 CDTNotes: (Same as: BD Posiflush) Lasix 80 mg, 2 tab, No Longer Route: PO, Active 2017 [place] Drug form: TAB, Daily, Dosing Weight 109.091, kg, Start date: 12/21/17 9:00:00 CDT, Stop date: 01/15/18 9:00:00 CDTNotes: (Same as: Lasix) May cause GI upset. Give with food or milk. calcitriol 0.5 0.5 No Longer mcg oral capsule microgram=1 Active 2018 [place] cap, PO, Daily, # 30 cap, 0 Refill(s), Pharmacy: [facility] Ergocalciferol 50,000 Active 04546 UNT Oral IntlUnit=1 2018 [place] Capsule cap, PO, qWeek, # 5 cap, 0 Refill(s), Pharmacy: [facility] Calcium 2,000 mg=4 No Longer Carbonate 500 MG tab, PO, TID, Active 2018 [place] Chewable Tablet # 168 tab, 0 Refill(s), Pharmacy: [facility] sevelamer 2,400 mg=3 No Longer carbonate 800 mg tab, PO, Active 2018 [place] oral tablet TID-Meals, # 270 tab, 0 Refill(s), Pharmacy: [facility] Furosemide 80 MG 80 mg, PO, No Longer Oral Tablet Daily, # 30 Active 2018 [place] [Lasix] ea, 0 Refill(s), Pharmacy: [facility] carvedilol 3.125 3.125 mg=1 No Longer mg oral tablet tab, PO, Q12H, Active 2017 [place] # 60 tab, 0 Refill(s), Pharmacy: [facility] amLODIPine 5 mg 10 mg=2 tab, No Longer oral tablet PO, Daily, # Active 2018 [place] 60 tab, 0 Refill(s), Pharmacy: [facility] Calcium 2,000 mg, 20 No Longer Gluconate mL, Route: IV, Active 2017 [place] ONCE, Dosing Weight 109.091, kg, Start date: 12/20/17 6:50:00 CDT, Stop date: 12/20/17 6:50:00 CDTNotes: WASTE: F/P - Sink; E - [facility] Trash [facility] Coreg 3.125 mg, 1 No Longer tab, Route: Active 2017 [place] PO, Drug form: TAB, Q12H, Dosing Weight 109.091, kg, Start date: 12/19/17 21:00:00 CDT, Duration: 30 day, Stop date: 01/18/18 9:00:00 CDTNotes: Give with food. (Same As: Coreg) Lasix 80 mg, 8 mL, No Longer Route: IV, Active 2017 [place] Drug form: INJ, Daily, Dosing Weight 109.091, kg, Start date: 12/19/17 9:00:00 CDT, Stop date: 01/15/18 9:00:00 CDTNotes: (Same as: Lasix) MEDICATION WASTE Product Size: 40 mg Product Wasted: ___ mg Vitamin D2 50,000 No Longer IntlUnit, 1 Active 2017 [place] cap, Route: PO, Drug form: CAP, qWeek, Dosing Weight 109.091, kg, Start date: 12/19/17 9:00:00 CDT, Duration: 30 day, Stop date: 01/16/18 9:00:00 CDTNotes: (Same as: Vitamin D) "Do Not Crush" Calcium 1,000 mg, 10 Inactive Gluconate mL, Route: 2017 [place] IVPB, ONCE, Dosing Weight 109.091, kg, Start date: 12/19/17 6:39:00 CDT, Stop date: 12/19/17 6:39:00 CDTNotes: WASTE: F/P - Sink; E - [facility] Trash [facility] Calcium 2,000 mg, 20 Inactive Gluconate mL, Route: 2018 [place] IVPB, ONCE, Dosing Weight 109.091, kg, Start date: 12/18/17 15:44:00 CDT, Stop date: 12/18/17 15:44:00 CDTNotes: WASTE: F/P - Sink; E - [facility] Trash [facility] Calcium 2,000 mg, 4 No Longer Carbonate tab, Route: Active 2018 [place] PO, Drug form: CHEWTAB, TID, Dosing Weight 90.909, kg, Start date: 12/18/17 13:00:00 CDT, Duration: 30 day, Stop date: 01/17/18 9:00:00 CDTNotes: (Same As: Kailee) Calcium Carbonate 500 bc=285 mg elemental calcium Dose= mg calcium carbonate ( mg elemental calcium) Calcium 2,000 mg, 20 Inactive Gluconate mL, Route: 2018 [place] IVPB, ONCE, Dosing Weight 109.091, kg, Priority: STAT, Start date: 12/18/17 5:53:00 CDT, Stop date: 12/18/17 5:53:00 CDTNotes: WASTE: F/P - Sink; E - [facility] Trash [facility] Calcium 2,000 mg, 20 No Longer Gluconate mL, Route: Active 2017 [place] IVPB, ONCE, Dosing Weight 109.091, kg, Start date: 12/17/17 23:35:00 CDT, Stop date: 12/17/17 23:35:00 CDTNotes: WASTE: F/P - Sink; E - [facility] Trash [facility] RenaGel 2,400 mg, 3 No Longer tab, Route: Active 2017 [place] PO, Drug form: TAB, TID-Meals, Dosing Weight 109.091, kg, Start date: 12/17/17 12:00:00 CDT, Duration: 30 day, Stop date: 01/16/18 8:00:00 CDTNotes: Same as: Renvela Lasix 80 mg, 8 mL, No Longer Route: IV, Active 2017 [place] Drug form: INJ, Q12H, Dosing Weight 109.091, kg, Start date: 12/17/17 9:00:00 CDT, Stop date: 01/15/18 9:00:00 CDTNotes: (Same as: Lasix) MEDICATION WASTE Product Size: 40 mg Product Wasted: ___ mg Venofer 200 mg, 10 mL, No Longer Route: IVPB, Active 2017 [place] Daily, Dosing Weight 109.091, kg, Start date: 12/17/17 9:00:00 CDT, Duration: 5 doses or times, Stop date: 12/21/17 9:00:00 CDTNotes: Each 5ml contains 100mg elemental iron. Mix with NS Non-Formulary (Same as:Venofer) Administer IV only. MEDICATION WASTE Product Size: 100 mg Product Wasted: ___ mg Calcium 2,000 mg, 20 Inactive Gluconate mL, Route: 2018 [place] IVPB, ONCE, Dosing Weight 109.091, kg, Start date: 12/17/17 6:35:00 CDT, Stop date: 12/17/17 6:35:00 CDTNotes: WASTE: F/P - Sink; E - [facility] Trash Bin Kayexalate 30 gm, 120 mL, Inactive Route: PO, 2017 [place] Drug form: SUSP, ONCE, Dosing Weight 109.091, kg, Start date: 12/16/17 19:11:00 UNIVERSITY PRESIDENT, Stop date: 12/16/17 19:11:00 CSTNotes: (sodium polystyrene sulfonate 15 gm/60 ml CANDACE) Shake well before use. (Same as: Kayexalate, SPS) sodium 50 mEq, 50 ml, Inactive bicarbonate 8.4% Route: IVP, 2017 [place] Drug Form: INJ, Dosing Weight 109.091, kg, ONCE, Start date: 12/16/17 19:11:00 UNIVERSITY PRESIDENT, Stop date: 12/16/17 19:11:00 CSTNotes: (sodium bicarb 8.4% (1 mEq/ml) 50 ml syringe) Amlodipine 10 mg, 2 tab, No Longer Route: PO, Active 2017 [place] Drug form: TAB, Daily, Dosing Weight 109.091, kg, Start date: 12/16/17 9:00:00 UNIVERSITY PRESIDENT, Duration: 30 day, Stop date: 01/14/18 9:00:00 CDTNotes: (Same as: Norvasc) Kayexalate 30 gm, 120 mL, Inactive Route: PO, 2017 [place] Drug form: SUSP, ONCE, Dosing Weight 109.091, kg, Start date: 12/16/17 7:38:00 UNIVERSITY PRESIDENT, Stop date: 12/16/17 7:38:00 CSTNotes: (sodium polystyrene sulfonate 15 gm/60 ml CANDACE) Shake well before use. (Same as: Kayexalate, SPS) Calcium 2,000 mg, 20 Inactive Gluconate mL, Route: 2018 [place] IVPB, ONCE, Dosing Weight 109.091, kg, Start date: 12/15/17 17:43:00 UNIVERSITY PRESIDENT, Stop date: 12/15/17 17:43:00 CSTNotes: WASTE: F/P - Sink; E - Municipal Trash Bin Dilaudid 1 mg, 0.5 tab, No Longer Route: PO, Active 2017 [place] Drug form: TAB, Q4H, Dosing Weight 109.091, kg, PRN Pain Score 7-10, Start date: 12/15/17 15:38:00 UNIVERSITY PRESIDENT, Duration: 30 day, Stop date: 01/14/18 15:37:00 CDTNotes: (Same as: Dilaudid) Morphine 6 mg, 3 mL, Inactive Route: PO, 2017 [place] Drug form: SOLN, Q4H, Dosing Weight 109.091, kg, PRN Pain Score 7-10, Start date: 12/15/17 13:02:00 UNIVERSITY PRESIDENT, Duration: 30 day, Stop date: 01/14/18 13:01:00 CDTNotes: (Same as:MORPhine Sulfate) Acetaminophen 2 tabs, PO, No Longer 300 MG / Codeine BID, 0 Active 2018 [place] Phosphate 60 MG Refill(s) Oral Tablet [Tylenol with Codeine #4] Alprazolam 2 MG 2 mg=1 tab, Active Oral Tablet PO, BID, PRN 2018 [place] [Xanax] as needed for anxiety, 0 Refill(s) Amlodipine 10 MG 1 cap, PO, No Longer / Benazepril TID, 0 Active 2018 [place] hydrochloride 20 Refill(s) MG Oral Capsule [Lotrel 10/20] lisinopril 20 mg 20 mg=1 tab, No Longer oral tablet PO, Daily, 0 Active 2018 [place] Refill(s) Calcium 1,500 mg, 3 No Longer Carbonate tab, Route: Active 2018 [place] PO, Drug form: CHEWTAB, TID, Dosing Weight 90.909, kg, Start date: 12/15/17 10:06:00 UNIVERSITY PRESIDENT, Duration: 30 day, Stop date: 01/14/18 9:00:00 CDTNotes: (Same As: Tums) Calcium Carbonate 500 pg=758 mg elemental calcium Dose= mg calcium carbonate ( mg elemental calcium) Calcitriol 0.25 No Longer microgram, 1 Active 2018 [place] cap, Route: PO, Drug form: CAP, Daily, Dosing Weight 90.909, kg, Start date: 12/15/17 10:06:00 UNIVERSITY PRESIDENT, Duration: 30 day, Stop date: 01/14/18 9:00:00 CDTNotes: (Same As: Rocaltrol) Ondansetron 4 mg, 2 mL, No Longer Route: IVP, Active 2017 [place] Drug form: INJ, Q6H, Dosing Weight 90.909, kg, PRN Nausea & Vomiting, Start date: 12/15/17 8:31:00 UNIVERSITY PRESIDENT, Duration: 30 day, Stop date: 01/14/18 8:30:00 CDTNotes: (Same as: Ed) MEDICATION WASTE Product Size: 4 mg Product Wasted: ___ mg Acetaminophen 650 mg, 2 tab, No Longer Route: PO, Active 2018 [place] Drug form: TAB, Q4H, Dosing Weight 90.909, kg, PRN Pain 1-3/Temp > 100.4 F, Start date: 12/15/17 8:31:00 UNIVERSITY PRESIDENT, Duration: 30 day, Stop date: 01/14/18 8:30:00 CDTNotes: Do not exceed 4 gm/day. (Same as: Tylenol) Acetaminophen 1 tab, Route: No Longer 325 MG / PO, Drug Form: Active 2018 [place] Hydrocodone TAB, Dosing Bitartrate 5 MG Weight 90.909, Oral Tablet kg, Q4H, PRN Pain Score 4-6, Start date: 12/15/17 8:31:00 UNIVERSITY PRESIDENT, Duration: 30 day, Stop date: 01/14/18 8:30:00 CDTNotes: (Same as: Davey 325/5) Do not exceed 4gm/day of acetaminophen. Saline Flush 10 mL, Route: No Longer 0.9% IVP, Drug Active 2017 [place] Form: INJ, Dosing Weight 90.909, kg, PRN, PRN Line Flush, Start date: 12/15/17 6:30:00 UNIVERSITY PRESIDENT, Duration: 30 day, Stop date: 01/14/18 7:29:00 CDTNotes: (Same as: BD Posiflush) Lasix 80 mg, 8 mL, No Longer Route: IV, Active 2017 [place] Drug form: INJ, Q8H, Dosing Weight 109.091, kg, Start date: 12/15/17 4:45:00 UNIVERSITY PRESIDENT, Stop date: 01/15/18 16:45:00 CDTNotes: (Same as: Lasix) MEDICATION WASTE Product Size: 40 mg Product Wasted: ___ mg Allergies, Adverse Reactions, Alerts Substance Category Reaction Severity Reaction Status Date Comments Source type Reported No Known Assertion Drug Medication allergy [place] Allergies Immunizations Immunization Date Site Status Last Updated Comments Source Given pneumococcal Right completed Thao 13-valent 8 Deltoid [facility] vaccine [facility] Results Order Name Results Value Reference Date Interpretation Comments Source Range Abdomen AP Abdomen AP Patient Name: ROBYN AGUILA 07/24 - [facility] DX [facility] : 1960; Age: 57 years y/o Male MR: [id number] Read by: Nelson Arcos MD Dictated Date/time: 07/24/18 13:02 Electronically Signed by: Nelson Arcos MD 07/24/18 13:04 FINAL REPORT * ABDOMEN, 1 view 07/24/2018 HISTORY: Nonfunctioning peritoneal dialysis catheter. COMPARISON: Yesterday. TECHNIQUE: A supine radiograph of the abdomen was obtained. IMPRESSION: 1. The peritoneal dialysis catheter enters the periumbilical region and extends into the lateral aspect of the mid right upper quadrant. There is been no significant change from yesterday. 2. The bowel gas pattern is unremarkable. 3. The regional skeleton is unremarkable. SL: [id number] CHEM PANEL Phosphorus 6.1 mg/dL 2.5 - 4.5 07/23 [place] ELECTROLYTE AGAP 14.8 meq/L 10.0 - 07/23 S 20.0 [place] ELECTROLYTE eGFR 4 07/23 Result Comment: The eGFR is calculated using the CKD-EPI formula. In most young, healthy individuals the eGFR will be >90 mL/ min/1.73m2. The eGFR declines with age. An eGFR of 60-89 may be normal in S mL/min/1. some populations, particularly the elderly, for whom the CKD-EPI formula has not been extensively validated. Use of the eGFR is not recommended in the following populations: [address] Individuals with unstable creatinine concentrations, including patients and those with serious co-morbid conditions. Patients with extremes in muscle mass or diet. The data above are obtained from the National Kidney Disease Education Program (NKDEP) which additionally recommends that when the eGFR is used in patients with extremes of body mass index for purposes of drug dosing, the eGFR should be multiplied by the estimated BMI. ELECTROLYTE CO2 27 meq/L 24 - 32 07/23 S [place] ELECTROLYTE Calcium Lvl 7.9 mg/dL 8.5 - 10.5 07/23 S [place] ELECTROLYTE Creatinine 12.90 0.50 - 07/23 S Lvl mg/dL 1.40 [place] ELECTROLYTE BUN 60 mg/dL 7 - 22 07/23 S [place] ELECTROLYTE Sodium Lvl 139 meq/L 135 - 145 07/23 S [place] ELECTROLYTE Glucose Lvl 93 mg/dL 70 - 99 07/23 S [place] ELECTROLYTE Chloride Lvl 102 meq/L 95 - 109 07/23 S [place] ELECTROLYTE Potassium 4.8 meq/L 3.5 - 5.1 07/23 S Lvl /2017 [place] HEMATOLOGY MCHC 35.3 g/dL 32.0 - 07/23 MH 36.0 [place] HEMATOLOGY Hgb 7.8 g/dL 14.0 - 07/23 MH 18.0 [place] HEMATOLOGY Hct 22.0 % 42.0 - 07/23 MH 54.0 [place] HEMATOLOGY RBC 2.68 M/CMM 4.70 - 07/23 MH 6.10 [place] HEMATOLOGY WBC 4.4 K/CMM 3.7 - 10.4 07/23 [place] HEMATOLOGY RDW 14.5 % 11.5 - 07/23 MH 14. [place] HEMATOLOGY MCV 82.1 fL 80.0 - 07/23 MH 94.0 [place] HEMATOLOGY MCH 29.0 pg 27.0 - 07/23 MH 31.0 [place] HEMATOLOGY Platelet 128 K/CMM 133 - 450 07/23 [place] HEMATOLOGY MPV 7.3 fL 7.4 - 10.4 07/23 [place] HEMATOLOGY Monocytes # 0.4 K/CMM 0.0 - 0.8 07/23 [place] HEMATOLOGY Eosinophils 0.2 K/CMM 0.0 - 0.5 07/23 [place] HEMATOLOGY Monocytes 9.7 % 2.0 - 12.0 07/23 [place] HEMATOLOGY Eosinophils 3.7 % 0.0 - 4.0 07/23 [place] HEMATOLOGY Basophils 0.8 % 0.0 - 1.0 07/23 [place] HEMATOLOGY Neutrophils 3.0 K/CMM 1.5 - 8.1 07/23 [place] HEMATOLOGY Lymphocytes 0.8 K/CMM 1.0 - 5.5 07/23 [place] HEMATOLOGY Segs 67.6 % 45.0 - 07/23 75.0 [facility] Lymphocytes 18.2 % 20.0 - 07/23 40.0 [place] Abdomen AP Abdomen AP Patient Name: ROBYN AGUILA 07/23 [facility] DX DX /2017 - [place] : 1960; Age: 57 years y/o Male MR: [id number] Read by: Nelson Arcos MD Dictated Date/time: 07/23/18 09:20 Electronically Signed by: Nelson Arcos MD 07/23/18 09:34 FINAL REPORT * ABDOMEN, 1 view HISTORY: Nonfunctioning peritoneal dialysis catheter. COMPARISON: Yesterday. TECHNIQUE: A supine radiograph of the abdomen was obtained. IMPRESSION: 1. The peritoneal dialysis catheter enters the periumbilical region and extends into the lateral aspect of the mid right upper quadrant. It is indicated by the patient's consulting tour counselor, Isabel Appiah MD;. The catheter was placed approximately 4 weeks ago and initially functioning well but is now not functioning. The patient is scheduled to have a contrast injection th rough the catheter and attempted manipulation with a guidewire later today. 2. The bowel gas pattern is unremarkable. 3. The regional skeleton is unremarkable. SL: [id number] Peritoneogr Peritoneogra Patient Name: ROBYN AGULIA 07/23 - [facility] [place] : 1960; Age: 57 years y/o Male MR: [id number] Read by: Nelson Arcos MD Dictated Date/time: 07/23/18 15:54 Electronically Signed by: Nelson Arcos MD 07/23/18 16:01 FINAL REPORT * Peritoneal Dialysis Catheter Injection and Manipulation. HISTORY: 57-year-old male with end-stage renal disease. The patient had a peritoneal dialysis catheter placed approximately 4 weeks ago which initially functioning well but now was not functioning. The patient was referred for evaluation and possible treatment. TECHNIQUE: Initially, the catheter was prepped with ChloraPrep and draped. The procedure was performed under fluoroscopic guidance. The fluoroscopy time was 4.6 minutes. Radiation dose - reference air kerma: 278 mGy. The catheter was injected with approximately 40 mL of nonionic iodinated contrast. The catheter is patent without kinking or other mechanical abnormality. The catheter is coiled in the right mid paracol ic gutter. There is free in crests of contrast material from the catheter with outlining of the descending colon. Therefore, the catheter is not included. In order to attempt to improve the catheter position and function, initially, an Amplatz extra-stiff guidewire was advanced through the catheter. There does not appear to be an end hole and therefore th e wire would not pass outside of the catheter. Several passes were also made with a 0.035 inch stiff shaft angled Glidewire. Since the wire would not pass through the valve, the plastic connection of th e catheter was initially removed to allow for passage of the wire. The catheter appeared to change slightly in position but remained in the right lateral mid abdomen. After this maneuver, fluid was note d to be draining from the catheter. The catheter was reconnected and flushed. IMPRESSION: 1. The peritoneal dialysis catheter terminates in the lateral right mid abdomen in the region of the mid right paracolic gutter. 2. The catheter is not occluded as contrast injected into the bladder flow into the peritoneal cavity. 3. Attempts were made to slightly reposition the catheter utilizing guidewires described above. 4. After the procedure, it is noted there appear to be backflow from the catheter. 5. It remains be seen whether the catheter will function well after these maneuvers. If there is continued poor catheter function, it is suggested that positional maneuvers be attempted such as placing the patient the prone or left lateral decubitus position after instillation of the dialysate to hopefully promote catheter migration. Also, if the catheter does not drain well after the dialysate has be en injected, it may drain better with the patient in the right lateral decubitus position. SL: [id number] CHEM PANEL Magnesium 2.5 mg/dL 1.8 - 2.4 07/22 [facility] Lvl [place] CHEM PANEL Phosphorus 8.3 mg/dL 2.5 - 4.5 07/22 [place] ELECTROLYTE CO2 22 meq/L 24 - 32 07/22 S [place] ELECTROLYTE Calcium Lvl 7.5 mg/dL 8.5 - 10.5 07/22 S [place] ELECTROLYTE Chloride Lvl 98 meq/L 95 - 109 07/22 S [place] ELECTROLYTE eGFR 2 07/22 Result Comment: The eGFR is calculated using the CKD-EPI formula. In most young, healthy individuals the eGFR will be >90 mL/ min/1.73m2. The eGFR declines with age. An eGFR of 60-89 may be normal in mL/min/1. some populations, particularly the elderly, for whom the CKD-EPI formula has not been extensively validated. Use of the eGFR is not recommended in the following populations: [place] 3m2 Individuals with unstable creatinine concentrations, including patients and those with serious co-morbid conditions. Patients with extremes in muscle mass or diet. The data above are obtained from the National Kidney Disease Education Program (NKDEP) which additionally recommends that when the eGFR is used in patients with extremes of body mass index for purposes of drug dosing, the eGFR should be multiplied by the estimated BMI. ELECTROLYTE Creatinine 19.20 0.50 - 07/22 MH S Lvl mg/dL 1.40 [place] ELECTROLYTE BUN 97 mg/dL 7 - 22 07/22 MH S [place] ELECTROLYTE Potassium 4.7 meq/L 3.5 - 5.1 07/22 MH S Lvl 2018 [place] ELECTROLYTE Sodium Lvl 135 meq/L 135 - 145 07/22 S [place] ELECTROLYTE Glucose Lvl 82 mg/dL 70 - 99 07/22 S [place] ELECTROLYTE AGAP 19.7 meq/L 10.0 - 07/22 MH S 20.0 [place] HEMATOLOGY WBC 4.9 K/CMM 3.7 - 10.4 07/22 [place] HEMATOLOGY RBC 2.85 M/CMM 4.70 - 07/22 MH 6.10 [place] HEMATOLOGY MCV 82.3 fL 80.0 - 07/22 MH 94.0 [place] HEMATOLOGY MCH 28.8 pg 27.0 - 07/22 MH 31.0 [place] HEMATOLOGY Hgb 8.2 g/dL 14.0 - 07/22 MH 18.0 [place] HEMATOLOGY Hct 23.4 % 42.0 - 07/22 MH 54.0 [place] HEMATOLOGY RDW 15.0 % 11.5 - 07/22 MH 14. [place] HEMATOLOGY MCHC 35.0 g/dL 32.0 - 07/22 MH 36.0 [place] HEMATOLOGY MPV 7.4 fL 7.4 - 10.4 07/22 [place] HEMATOLOGY Platelet 140 K/CMM 133 - 450 07/22 [place] HEMATOLOGY Lymphocytes 20.3 % 20.0 - 07/22 MH 40.0 [place] HEMAT[facility] Basophils 1.0 % 0.0 - 1.0 07/22 [place] [facility]EMAT[facility] Segs 67.1 % 45.0 - 07/22 MH 75.0 [place] [facility]EMAT[facility] Neutrophils 3.3 K/CMM 1.5 - 8.1 07/22 MH # /2017 [place] [facility]EMAT[facility] Eosinophils 3.1 % 0.0 - 4.0 07/22 [place] [facility] Monocytes 8.5 % 2.0 - 12.0 07/22 [place] [facility]AT[facility] Monocytes # 0.4 K/CMM 0.0 - 0.8 07/22 [place] [facility]AT[facility] Lymphocytes 1.0 K/CMM 1.0 - 5.5 07/22 MH [place] HEMAT[facility] Eosinophils 0.1 K/CMM 0.0 - 0.5 07/22 MH # [place] IMMUNOLOGY Hep Bs Ag Negative Negative 07/22 [place] *NA* (07/22/18 6:17 AM) Abdomen AP Abdomen AP Patient Name: ROBYN AGUILA 07[facility]22 [facility] /2017 - [place] : 1960; Age: 57 years y/o Male MR: [id number] Read by: Nelson Leigh Dictated Date/time: 07/22/18 15:55 Electronically Signed by: Nelson Leigh 07/22/18 15:59 FINAL REPORT Study: Abdomen AP DX 07/22/2018 10:52 AM CDT Ordering Physician: Nick Appiah MD Comparison: None Clinical Indication: - non functional peritoneal catheter, to determine position of the tip of the peritoneal cathter. Findings: Left basilar airspace opacity with air bronchograms. Enlarged cardiac silhouette. Nonobstructive bowel gas pattern. Right lower quadrant peritoneal dialysis catheter is incompletely visualized, but the tip likely terminates within the pelvis. Left pelvic phleboliths. Degenerative changes of the lumbar spine. IMPRESSION: 1. Incompletely visualized peritoneal dialysis catheter tip likely terminates within the pelvis. 2. Left basilar airspace opacity likely represents atelectasis. SL: [id number]-M CVC insert CVC insert Patient Name: ROBYN AGUILA 07/22 - [facility] tunnel /2017 - [place] w/-w/o w/-w/o : 1960; Age: 57 years Male port/pump port/pump age 5+ yrs age 5+ yrs MR: [id number] Read by: Rhonda Yuan VR VR Dictated Date/time: 07/22/18 15:22 Electronically Signed by: Rhonda Yuan 07/22/18 15:26 FINAL REPORT PROCEDURE: 1. Ultrasound and fluoroscopic-guided placement of a tunneled central catheter via the right external jugular vein 2. Moderate sedation CLINICAL INFORMATION: : Other- See Reason for Consult - tunneled HD catheter elevated creatinine, need for urgent dialysis CONSENT: The procedure, risks, benefits and alternatives were discussed with the patient and written informed consent was obtained. A "time out" was performed per protocol prior to the procedure. TECHNIQUE: folder machine operator: Dr. Yuan Fluoroscopy time: 2.7 min, 29.5 mGy Estimated blood loss: Minimal Moderate sedation: I supervised moderate sedation during this procedure. The patient was continuously monitored by a nurse using automated blood pressure , electrocardiogram, and pulse oximetry. The [facility] er[facility] sedation record is permanently stored in the hospital information system. The personal supervised moderate sedation time was 19 minutes. Medications administered: Versed 2 mg IV and Fentanyl 100 mcg IV. The patient was placed in a supine position on the fluoroscopy table. Preprocedure ultrasound demonstrated a patent right internal jugular vein. The patient's right neck was prepped and draped usin g maximum sterile barrier technique. The overlying skin was anesthetized with 1% lidocaine. Under sterile ultrasound guidance, access was obtained in the right internal jugular vein using micropuncture set. Wire was not extending centrally, likely due to narrowing. Therefore access was obtained in the right patent external jugular vein using ultrasound guidance and micropuncture set. Subsequently, a 0.035 inch wire was advanced into the IVC. After measuring the appropriate catheter length, the skin overlying the tunnel tract was anesthetized with 1% lidocaine. A small dermatotomy wa s created followed by tunneling of the catheter under the skin to the IJ puncture site. Following placement of a peel-away sheath, the catheter was then inserted until the tip projected over the cavoatrial junction. The peel-away sheath was removed. Final postprocedure fluoroscopic imaging demonstrated good position of the tunneled central catheter, with tip projecting over the cavoatrial junction. Excellent blood return was noted from each port which were subsequently flushed with saline. The skin puncture site in the neck was closed using absorbable suture and Dermabond. The catheter was secured to the skin and sterile dressings applied. Patient tolerated the procedure well without immediate complication. IMPRESSION: Successful placement of a tunneled right EJ central dialysis catheter. Catheter is ready for use. SL: [id number] Chest 1 v Chest 1 v Additional image was provided for interpretation post catheter placement. 07/22 - [facility] /2018 - [place] Placement Placement DX DX Single view of the chest demonstrates a left IJ approach catheter terminating over the aortic knob which may represent a proximal left brachycephalic vein position given the previous guidewire position. Read by: Bertha Blas MD Dictated Date/time: 07/22/18 04:43 Electronically Signed by: Bertha Blas MD 07/22/18 04:57 FINAL REPORT Hazy right upper lung field opacities are redemonstrated and may represent subsegmental atelectasis, infiltrate or alveolar edema. - - Prominent pulmonary vascular congestion with suggestion of minimal interstitial pulmonary edema. Read by: Bertha Blas MD Dictated Date/time: 07/22/18 03:59 Electronically Signed by: Bertha Blas MD 07/22/18 04:08 FINAL REPORT Report addition and catheter position was discussed with Dr. Hess at 4: 55 AM on 07/22/2018. EXAM: Chest x-ray one view (frontal) HISTORY: - Line Placement. COMPARISON: CT 07/21/2018 FINDINGS: The inferior neck and left lower chest are not imaged. Lines and tubes: The presumed left IJ approach catheter guidewire terminates over the IVC. No catheter is identified at this time. Mediastinum: The heart shadow is moderately enlarged, unchanged. Lungs and pleura: Hazy right perihilar opacities may represent confluence of vessels with subsegmental atelectasis also possible. The limited visualized lung aguirre demonstrate no overt pneumothorax or pleural effusion. A coiled wire projects of the right upper quadrant and may be external to the patient. IMPRESSION: Presumed left IJ approach catheter guidewire terminates over the IVC. No catheter is identified at this time. Study limitations and findings as above. Findings (guidewire) were discussed with Dr. Haque. SL: [facility] CARDIAC proBNP 53020 0 - 125 07/22 [facility] pg/mL /2017 [place] C[facility] Troponin-I null 0.00 - 07/22 [facility] 0.40 /2018 [place] [facility] Total CK 91 unit/L 12 - 191 07/22 [facility] /2017 [place] CHEM PANEL Lipase Lvl 95 unit/L 73 - 393 07/22 [place] CHEM PANEL Globulin 3.2 g/dL 2.7 - 4.2 07/22 [place] CHEM PANEL A/G Ratio 0.9 0.7 - 1.6 07/22 [place] CHEM PANEL B/C Ratio 5 6 - 25 07/22 [place] CHEM PANEL AGAP 18.7 meq/L 10.0 - 07/22 MH 20.0 [place] CHEM PANEL eGFR 2 07/22 Result Comment: The eGFR is calculated using the CKD-EPI formula. In most young, healthy individuals the eGFR will be >90 mL/ min/1.73m2. The eGFR declines with age. An eGFR of 60-89 may be normal in mL/min/1. some populations, particularly the elderly, for whom the CKD-EPI formula has not been extensively validated. Use of the eGFR is not recommended in the following populations: [place] [address] Individuals with unstable creatinine concentrations, including patients and those with serious co-morbid conditions. Patients with extremes in muscle mass or diet. The data above are obtained from the National Kidney Disease Education Program (NKDEP) which additionally recommends that when the eGFR is used in patients with extremes of body mass index for purposes of drug dosing, the eGFR should be multiplied by the estimated BMI. CHEM PANEL Calcium Lvl 7.6 mg/dL 8.5 - 10.5 07/22 [place] CHEM PANEL CO2 24 meq/L 24 - 32 07/22 [place] CHEM PANEL Chloride Lvl 98 meq/L 95 - 109 07/22 [place] CHEM PANEL Potassium 4.7 meq/L 3.5 - 5.1 07/22 Lvl [place] CHEM PANEL Sodium Lvl 136 meq/L 135 - 145 07/22 [place] CHEM PANEL Albumin Lvl 2.8 g/dL 3.5 - 5.0 07/22 [place] CHEM PANEL ALT 13 unit/L 0 - 65 07/22 [place] CHEM PANEL AST 9 unit/L 0 - 37 07/22 [place] CHEM PANEL Alk Phos 57 unit/L 39 - 136 07/22 [place] CHEM PANEL Total 6.0 g/dL 6.4 - 8.4 07/22 [place] CHEM PANEL Bili Total 0.4 mg/dL 0.2 - 1.3 07/22 [place] CHEM PANEL Creatinine 18.60 0.50 - 07/22 Lvl mg/dL 1.40 [place] CHEM PANEL Glucose Lvl 89 mg/dL 70 - 99 07/22 [place] CHEM PANEL BUN 95 mg/dL 7 - 22 07/22 [place] HEMATOLOGY Segs 66.2 % 45.0 - 10 MH 75.0 [place] HEMATOLOGY Lymphocytes 21.4 % 20.0 - 10 MH 40.0 [place] HEMATOLOGY Monocytes 7.7 % 2.0 - 12.0 07/22 [place] HEMAT[facility]Y Lymphocytes 0.9 K/CMM 1.0 - 5.5 07/22 MH # /2017 [place] HEMATOLOGY Basophils 1.2 % 0.0 - 1.0 07/22 [place] HEMATOLOG[facility] Monocytes # 0.3 K/CMM 0.0 - 0.8 07/22 [place] HEMATOLOGY Eosinophils 0.1 K/CMM 0.0 - 0.5 07/22 MH # /2017 [place] HEMATOLOGY Neutrophils 2.7 K/CMM 1.5 - 8.1 07/22 MH # /2017 [place] HEMATOLOGY Eosinophils 3.5 % 0.0 - 4.0 07/22 [place] [facility]EMAT[facility] PT 14.4 s 12.0 - 07/22 14. [place] [facility]EMAT[facility] INR 1.12 0.85 - 07/22 MH 1.17 [place] HEMAT[facility] PTT 37.1 s 22.9 - 07/22 35.8 [place] [facility]EMAT[facility] RDW 14.8 % 11.5 - 07/22 14. [place] [facility]EMAT[facility] Platelet 143 K/CMM 133 - 450 07/22 [place] [facility]AT[facility] MPV 7.6 fL 7.4 - 10.4 07/22 [place] [facility] RBC 2.83 M/CMM 4.70 - 07/22 MH 6.10 [place] HEMAT[facility] WBC 4.1 K/CMM 3.7 - 10.4 07/22 [place] [facility] MCHC 35.2 g/dL 32.0 - 07/22 36.0 [place] [facility]EMAT[facility] MCH 28.8 pg 27.0 - 07/22 MH 31.0 [place] [facility]EMAT[facility] Hgb 8.1 g/dL 14.0 - 07/22 18.0 [place] [facility]EMAT[facility] MCV 81.9 fL 80.0 - 07/22 94.0 [place] [facility]AT[facility] Hct 23.2 % 42.0 - 07/22 54.0 [place] Chest 1view Chest 1view Patient Name: ROBYN AGUILA 07/21 - [facility] DX /2017 - [place] : 1960; Age: 57 years y/o Male MR: [id number] Read by: Nelson Arcos MD Dictated Date/time: 07/21/18 21:51 Electronically Signed by: Nelosn Arcos MD 07/21/18 21:53 FINAL REPORT * CHEST, portable, 1 view HISTORY: Dyspnea. COMPARISON: 04/14/2018. A study of 12/15/2017 and a chest computed tomography scan of 03/17/2018 were also reviewed. IMPRESSION: 1. Findings consistent with congestive failure/fluid overload with mild interstitial edema. There is mild cardiomegaly, pulmonary vascular congestion, and a mildly increased interstitial pattern when co mpared to the prior study probably representing interstitial edema. 2. There are no focal infiltrates or significant pleural effusions. There may be minimal pleural effusions. 3. The regional skeleton is unremarkable. [facility] BUN 86 mg/dL 7 - 22 07/20 [place] CHEM PANEL Chloride Lvl 97 meq/L 95 - 109 07/20 [place] CHEM PANEL Potassium 5.2 meq/L 3.5 - 5.1 07/20 Lvl [place] CHEM PANEL Sodium Lvl 135 meq/L 135 - 145 07/20 [place] CHEM PANEL Creatinine 17.30 0.50 - 07/20 Lvl mg/dL 1. [place] CHEM PANEL Glucose Lvl 98 mg/dL 70 - 99 07/20 [place] CHEM PANEL eGFR 3 07/20 Result Comment: The eGFR is calculated using the CKD-EPI formula. In most young, healthy individuals the eGFR will be >90 mL/ min/1.73m2. The eGFR declines with age. An eGFR of 60-89 may be normal in mL/min/1. some populations, particularly the elderly, for whom the CKD-EPI formula has not been extensively validated. Use of the eGFR is not recommended in the following populations: [place] 3m2 Individuals with unstable creatinine concentrations, including patients and those with serious co-morbid conditions. Patients with extremes in muscle mass or diet. The data above are obtained from the National Kidney Disease Education Program (NKDEP) which additionally recommends that when the eGFR is used in patients with extremes of body mass index for purposes of drug dosing, the eGFR should be multiplied by the estimated BMI. CHEM PANEL Alk Phos 70 unit/L 39 - 136 07/20 [place] CHEM PANEL AST 10 unit/L 0 - 37 07/20 [place] CHEM PANEL Bili Total 0.4 mg/dL 0.2 - 1.3 07/20 [place] CHEM PANEL Total 6.8 g/dL 6.4 - 8.4 07/20 [place] CHEM PANEL Calcium Lvl 8.1 mg/dL 8.5 - 10.5 07/20 [place] CHEM PANEL CO2 24 meq/L 24 - 32 07/20 [place] CHEM PANEL ALT 19 unit/L 0 - 65 07/20 [place] CHEM PANEL Albumin Lvl 3.3 g/dL 3.5 - 5.0 07/20 [place] CHEM PANEL A/G Ratio 0.9 0.7 - 1.6 07/20 [place] CHEM PANEL AGAP 19.2 meq/L 10.0 - 07/20 MH 20.0 [place] CHEM PANEL Globulin 3.5 g/dL 2.7 - 4.2 07/20 [place] CHEM PANEL B/C Ratio 5 6 - 25 07/20 [place] HEMATOLOG[facility] Platelet 184 K/CMM 133 - 450 07/20 [place] [facility]EMAT[facility] MPV 6.8 fL 7.4 - 10.4 07/20 [place] HEMAT[facility] MCHC 35.4 g/dL 32.0 - 07/20 MH 36.0 [place] HEMATOLOGY RDW 15.1 % 11.5 - 07/20 MH 14. [place] [facility]EMAT[facility] Hct 26.1 % 42.0 - 07/20 MH 54.0 [place] HEMATOLOGY MCV 81.4 fL 80.0 - 07/20 MH 94.0 [place] HEMATOLOGY MCH 28.8 pg 27.0 - 07/20 MH 31.0 [place] HEMAT[facility]Y WBC 5.4 K/CMM 3.7 - 10.4 07/20 [place] [facility]EMAT[facility] RBC 3.20 M/CMM 4.70 - 10 MH 6.10 [place] [facility]EMAT[facility] Hgb 9.2 g/dL 14.0 - 07/20 MH 18.0 [place] HEMATOLOGY Segs 74.0 % 45.0 - 10 MH 75.0 [place] HEMAT[facility] Lymphocytes 15.5 % 20.0 - 07/20 MH 40.0 [place] HEMAT[facility] Monocytes 6.7 % 2.0 - 12.0 07/20 [place] HEMAT[facility] Eosinophils 2.8 % 0.0 - 4.0 07/20 [place] [facility]EMAT[facility] Basophils 1.0 % 0.0 - 1.0 07/20 [place] [facility]EMAT[facility] Neutrophils 4.0 K/CMM 1.5 - 8.1 07/20 # [place] [facility]EMAT[facility] Basophils # 0.1 K/CMM 0.0 - 0.2 07/20 [place] HEMATOLOGY Eosinophils 0.2 K/CMM 0.0 - 0.5 07/20 [place] HEMATOLOGY Lymphocytes 0.8 K/CMM 1.0 - 5.5 07/20 [facility] Monocytes # 0.4 K/CMM 0.0 - 0.8 07/20 [place] REFERENCE Test Name HLA TYPING 05/23 [facility] LAB RESULTS RESULTS [facility] BLOOD BANK ABO/RH O POS 05/23 [facility] RESULTS Confirm [facility] URINE AND UA Renal Epi RARE <=0 05/23 [facility] URINE AND UA <=1.0 0.1 - 1.0 05/23 [facility] Urobilinogen mg/dL [facility] URINE AND UA Glucose 100mg/dL 05/23 [facility] [address] [place] [address] URINE AND UA Sq Epi Moderate Few /LPF 05/23 [facility] /LPF /2017 [facility] URINE AND UA Leuk Est Small Negative 05/23 [facility] [address] [place] [address] *ABN* [place] (05/23/18 10:20 AM) URINE AND UA Ketones Negative Negative 05/23 [facility] mg/dL mg/dL [facility] URINE AND UA RBC null 0 - 2 05/23 [facility] [address] [place] [address] URINE AND UA WBC 9 /HPF 0 - 5 05/[address] URINE AND UA Nitrite Negative Negative 05/23 [facility] (05/23/18 10:20 AM) [place] URINE AND UA Blood Trace Negative 05/23 [facility] [address] [place] [address] *ABN* [place] (05/23/18 10:20 AM) URINE AND UA Bili Negative Negative 05/23 [facility] *NA* Center (05/23/18 10:20 AM) URINE AND UA Mucus Few /LPF None Seen 05/23 [facility] STOOL /LPF /[address] [place] [address] URINE AND UA Protein >=300 Negative 05/23 [facility] STOOL mg/dL mg/dL [facility] URINE AND UA pH 6.5 5.0 - 8.0 05/[address] URINE AND UA Spec Grav 1.008 <=1.030 05/[address] URINE AND UA Turbidity Slight Clear 05/23 [facility] (05/23/18 10:20 AM) URINE AND UA Color Yellow Yellow 05/23 [facility] [address] [place] [address] *NA* Center (05/23/18 10:20 AM) URINE CHEM U Microalb 2940.0 05/23 [facility] mg/L [facility] URINE CHEM U Prot/Creat 6.61 05/[address] URINE CHEM U Creatinine 55.00 05/23 [facility] mg/dL [facility] URINE CHEM U Protein 363.8 05/23 [facility] mg/dL [facility] ANEMIA % S[place] Fe 35 % 12 - 57 05/23 [facility] /[address] [place] [address] ANEMIA UIBC 179 ug/dl 110 - 370 05/[address] ANEMIA TIBC 276 ug/dl 228 - 428 05/[address] ANEMIA Iron 97 ug/dl 45 - 160 05/[address] ANEMIA Ferritin Lvl 292 ng/mL 22 - 275 05/[address] BLOOD BANK OP ABORh Int O POS 05/23 [facility] RESULTS [facility] CHEM PANEL Phosphorus 8.0 mg/dL 2.5 - 4.5 05/[address] CHEM PANEL Magnesium 2.5 mg/dL 1.8 - 2.4 05/23 [facility] Lvl [facility] CHEM PANEL Vitamin D, 26.3 ng/mL 30.0 - 05/23 [facility] 25-OH, Total 100.0 [facility] CHEM PANEL Uric Acid 3.5 mg/dL 3.8 - 8.0 05/[address] CHEM PANEL eGFR 7 05/23 Result Comment: The eGFR is calculated using the CKD-EPI formula. In most young, healthy individuals the eGFR will be >90 mL/ min/1.73m2. The eGFR declines with age. An eGFR of 60-89 may be normal in [facility] mL/min/1.7 some populations, particularly the elderly, for whom the CKD-EPI formula has not been extensively validated. Use of the eGFR is not recommended in the following populations: [address] Individuals with unstable creatinine concentrations, including patients and those with serious co-morbid conditions. Patients with extremes in muscle mass or diet. The data above are obtained from the National Kidney Disease Education Program (NKDEP) which additionally recommends that when the eGFR is used in patients with extremes of body mass index for purposes of drug dosing, the eGFR should be multiplied by the estimated BMI. CHEM PANEL Alk Phos 80 unit/L 39 - 136 05/[address] CHEM PANEL Bili Total 0.4 mg/dL 0.2 - 1.3 05/[address] CHEM PANEL Albumin Lvl 4.3 g/dL 3.5 - 5.0 05/[address] CHEM PANEL ALT 22 unit/L 0 - 65 05/[address] CHEM PANEL Calcium Lvl 8.8 mg/dL 8.5 - 10.5 05/[address] CHEM PANEL Total 8.1 g/dL 6.4 - 8.4 05/23 [facility] Protein [address] CHEM PANEL AST 12 unit/L 0 - 37 05/[address] CHEM PANEL CO2 26 meq/L 24 - 32 05/[address] CHEM PANEL Chloride Lvl 97 meq/L 95 - 109 05/[address] CHEM PANEL Potassium 3.8 meq/L 3.5 - 5.1 05/23 [facility] [address] [place] [address] CHEM PANEL Creatinine 8.22 mg/dL 0.50 - 05/23 [facility] Lvl 1.40 [facility] CHEM PANEL Sodium Lvl 136 meq/L 135 - 145 05/[address] CHEM PANEL BUN 59 mg/dL 7 - 22 05/[address] CHEM PANEL Glucose Lvl 98 mg/dL 70 - 99 05/[address] CHEM PANEL Globulin 3.8 g/dL 2.7 - 4.2 05/[address] CHEM PANEL A/G Ratio 1.1 0.7 - 1.6 05/23 [facility] CHEM PANEL AGAP 16.8 meq/L 10.0 - 05/23 [facility] 20.0 [facility] CHEM PANEL B/C Ratio 7 6 - 25 05/23 [facility] DRUG SCREEN Phencyclidin Negative Negative 05/23 [facility] Medical (05/23/18 9:55 AM) Center DRUG SCREEN 6-Acetylmor Negative Negative 05/23 [facility] (05/23/18 9:55 AM) Center DRUG SCREEN Opiate Scr Positive Negative 05/23 Medical *ABN* [place] (05/23/18 9:55 AM) DRUG SCREEN Methadone Negative Negative 05/23 [facility] (05/23/18 9:55 AM) Center DRUG SCREEN Rosa M Scr Negative Negative 05/23 [facility] (05/23/18 9:55 AM) Center DRUG SCREEN Cutoff See Note 05/23 [facility] Values [facility] (05/23/18 9:55 AM) Center DRUG SCREEN Cocaine Scr Negative Negative 05/23 [facility] (05/23/18 9:55 AM) Center DRUG SCREEN Amph Scr Negative Negative 05/23 [facility] (05/23/18 9:55 AM) Center DRUG SCREEN Cannab Scr Negative Negative 05/23 [facility] (05/23/18 9:55 AM) Center DRUG SCREEN Benzodiaz Positive Negative 05/23 [facility] *ABN* [place] (05/23/18 9:55 AM) DRUG SCREEN Opiate Qnt See Note 2 05/23 Result Comment: Opiates oxycodone Positive 12 ng/mL [facility] (05/23/18 9:55 AM) Center DRUG SCREEN Benzodiaz See Note 1 05/23 Result Comment: Benzodiazepines [facility] Qnt alprazolam Positive 27 ng/mL [facility] (05/23/18 9:55 AM) Center HEMATOLOGY Eosinophils 0.3 K/CMM 0.0 - 0.5 05/23 [facility] /2017 [facility] HEMATOLOGY Basophils # 0.1 K/CMM 0.0 - 0.2 05/23 [facility]2017 [facility] HEMATOLOGY Neutrophils 3.9 K/CMM 1.5 - 8.1 05/23 [facility] /2017 [facility] HEMATOLOGY Lymphocytes 1.3 K/CMM 1.0 - 5.5 05/23 [facility] # /2017 [facility] HEMATOLOGY Monocytes # 0.5 K/CMM 0.0 - 0.8 05/23 [facility] HEMATOLOGY Basophils 0.9 % 0.0 - 1.0 05/23 [facility] HEMATOLOGY Monocytes 7.7 % 2.0 - 12.0 05/23 [facility] HEMATOLOGY Eosinophils 4.3 % 0.0 - 4.0 05/23 [facility] HEMATOLOGY Lymphocytes 22.0 % 20.0 - 08 [place] 40.0 /2017 [facility] HEMATOLOGY Segs 65.1 % 45.0 - 08 [place] 75.0 [facility] HEMATOLOGY INR 1.06 0.85 - 05/23 [place] 1.17 [facility] HEMATOLOGY PT 13.8 s 12.0 - 05/23 [facility] 14.7 [facility] HEMATOLOGY PTT 35.0 s 22.9 - 05/23 [facility] 35.8 [facility] HEMATOLOGY RDW 18.1 % 11.5 - 05/23 [facility] 14.5 [facility] HEMATOLOGY MPV 8.0 fL 7.4 - 10.4 05/23 [facility] HEMATOLOGY Platelet 228 K/CMM 133 - 450 05/23 [facility] HEMATOLOGY MCHC 33.3 g/dL 32.0 - 05/23 [facility] 36.0 2018 [facility] HEMATOLOGY RBC 4.54 M/CMM 4.70 - 05/23 [place] 6.10 [facility] HEMATOLOGY WBC 6.1 K/CMM 3.7 - 10.4 05/23 [facility] HEMATOLOGY MCV 80.9 fL 80.0 - 05/23 [facility] 94.0 2018 [facility] HEMATOLOGY Hct 36.7 % 42.0 - 08 [place] 54.0 /2018 [facility] HEMATOLOGY MCH 27.0 pg 27.0 - 05/23 [facility] 31.0 2018 [facility] HEMATOLOGY Hgb 12.2 g/dL 14.0 - 08 [facility] 18.0 [facility] IMMUNOLOGY Varicella null <=0.8 AI 05/23 [facility] IgG /2017 [facility] IMMUNOLOGY Varicella null 0.00 - 05/23 Result Comment: Negative <0.91 [facility] IgM 0.90 Borderline 0.91 - 1.09 Medical Positive >1.09 Center Performed At: [facility] [place] [id number] [place], [place] [id number] Gilmar Gómez MD Ph:[phone] IMMUNOLOGY Treponemal Non-Reactive Non 05/23 [facility] Ab Medical *NA* Center (05/23/18 9:55 AM) IMMUNOLOGY T-Spot.TB Negative Negative 05/23 [facility] (05/23/18 9:55 AM) [place] IMMUNOLOGY Gamma % 18.2 REL % 11.1 - 05/23 [place] 18.7 [facility] IMMUNOLOGY Alpha 2 % 7.8 REL % 7.0 - 11.9 05/23 [facility] IMMUNOLOGY Beta % 9.5 REL % 7.8 - 13.7 05/23 [facility] IMMUNOLOGY Albumin % 60.9 REL % 55.8 - 05/23 [place] 66.1 [facility] IMMUNOLOGY Alpha 1 % 3.6 REL % 2.8 - 4.9 05/23 [facility] IMMUNOLOGY Gamma Glob 1.47 g/dL 0.71 - 05/23 [place] 1.57 [facility] IMMUNOLOGY Tot Prot 8.1 g/dL 6.4 - 8.4 05/23 [facility] (SPE) [facility] IMMUNOLOGY Beta Glob 0.77 g/dL 0.50 - 05/23 [place] 1. [facility] IMMUNOLOGY SPE Interp Capillary 05/23 [facility] electropho Medical resis does Center not demonstrat e any features consistent with the presence of a monoclonal gammopathy . Total protein level is within the reference range. Serum protein electropho resis shows normal distributi on of the main protein fractions. Serum protein electropho resis shows no pathologic changes.Co rrespondin g serum protein immunofixa tion electropho resis does not show evidence of a monoclonal gammopathy (see a separate report).I have personally reviewed the test results and concur with the resident's interpreta tion.CPT 90597-BE IMMUNOLOGY Albumin 4.93 g/dL 3.57 - 08 [facility] (SPE) 5.55 /2018 [facility] IMMUNOLOGY Alpha 1 Glob 0.29 g/dL 0.18 - 08 [place] 0.41 /2017 [facility] IMMUNOLOGY Alpha 2 Glob 0.63 g/dL 0.45 - 08/ [place] 1.00 [facility] IMMUNOLOGY [place]/Lambda 2.18 Ratio 0.26 - 05/23 [place] Free Light 1.65 /2017 [facility] Chains [facility] IMMUNOLOGY Lambda Free 89.85 mg/L 5.70 - 05/23 [facility] Light Chains 26.30 [facility] IMMUNOLOGY [place] Free 196.11 3.30 - 05/23 [facility] Light Chains mg/L 19.40 [facility] IMMUNOLOGY HSV 1 IgG null <=0.8 AI 05/23 [facility] IMMUNOLOGY HSV 2 IgG null <=0.8 AI 05/23 [facility] IMMUNOLOGY CMV IgM 0.2 S/CO 05/23 [facility] Ratio [facility] IMMUNOLOGY CMV IgG Reactive Non 05/23 [facility] Reactive [facility] *ABN* [place] (05/23/18 9:55 AM) IMMUNOLOGY EBV VCA IgG null <=0.8 AI 05/23 [facility] IMMUNOLOGY Hep Bs Ab 4.5 mIU/mL <=7.4 05/23 [facility] mIU/mL /2017 [facility] IMMUNOLOGY Hep C Ab Negative 05/23 [facility] *NA* [place] (05/23/18 9:55 AM) IMMUNOLOGY EBV VCA IgM null <=0.8 AI 05/23 [facility] IMMUNOLOGY Hep Bs Ag Negative Negative 05/23 [facility] [place] (05/23/18 9:55 AM) IMMUNOLOGY Hep B Core Negative Negative 05/23 [facility] [place] (05/23/18 9:55 AM) IMMUNOLOGY HIV Ag/Ab Negative Negative 05/23 [facility] [place] (05/23/18 9:55 AM) IMMUNOLOGY MIKE Ser The serum 05/23 [facility] Interp immunofixa [facility] tion Center electropho resis demonstrat es polyclonal distributi on of immunoglob ulins. No monoclonal immunoglob ulins are detected.T he electronic medical record has been reviewed for relevant history.I have personally reviewed the test results and concur with the resident's interpreta tion.CPT 66769-YE IMMUNOLOGY MIKE Ser Diffusely 05/23 [facility] Pattern staining Medical immunoreac Center tivity is present in the IgG, IgA, IgM, kappa, and lambda lanes in a normal polyclonal distributi on. No monoclonal immunoglob ulins are detected. LIPIDS VLDL 30 05/23 [place] /2017 [facility] LIPIDS LDL 74 mg/dL <=99 mg/dL 05/23 [facility] (Calculated) [facility] LIPIDS Chol 176 mg/dL <=199 05/23 [facility] mg/dL [facility] LIPIDS HDL 72 mg/dL >=61 mg/dL 05/23 [facility] LIPIDS Trig 152 mg/dL <=149 05/23 [facility] mg/dL [facility] LIPIDS CHD Risk 2.44 4.00 - 05/23 [facility] 7.30 [facility] PARASITOLOG Strongyloide Negative Negative 05/23 Result Comment: Performed At: [facility] Y - s Antibodies /2017 [address], [place] [id number] Medical SEROLOGY Gilmar Gómez MD Ph:[phone] [place] PARATHYROID PTH Intact 286.0 18.4 - 05/23 [facility] PROFILE pg/mL 80.1 [facility] SPECIAL PSA 0.46 ng/mL 0.00 - 05/23 [facility] CHEMISTRY 4.00 [facility] SPECIAL Hgb A1C 4.9 % <=5.6 % 05/23 [facility] CHEMISTRY /2017 [facility] SPECIAL Nicotine Lvl None 05/23 Result Comment: Nicotine levels greater than 2.0 are consistent with the [facility] CHEMISTRY Detected use of tobacco or tobacco cessation products. [facility] SPECIAL Cotinine Lvl None 05/23 Result Comment: Cotinine levels greater than 20.0 are consistent with the [facility] CHEMISTRY Detected use of tobacco or tobacco cessation products. Medical [facility]formed At: [facility] [address], [place] [id number] Gilmar Gómez MD Ph:[phone] CARDIAC Troponin-I 0.04 ng/mL 0.00 - 04/15 [place] 0.40 [place] CARDIAC Total CK 26 unit/L - 04/15 [facility] /2017 [place] CARDIAC Troponin-I 0.02 ng/mL 0.00 - 04/15 [facility] 0.40 /2018 [place] CARDIAC Total CK 31 unit/L - 04/15 [place] /2018 [place] CHEM PANEL Magnesium 1.9 mg/dL 1.8 - 2.4 04/15 Lvl /2017 [place] CHEM PANEL B/C Ratio 6 6 - 25 04/15 [place] CHEM PANEL Albumin Lvl 3.3 g/dL 3.5 - 5.0 04/15 [place] CHEM PANEL A/G Ratio 0.9 0.7 - 1.6 04/15 [place] CHEM PANEL Total 7.1 g/dL 6.4 - 8.4 04/15 [place] CHEM PANEL Globulin 3.8 g/dL 2.7 - 4.2 04/15 [place] CHEM PANEL ALT 18 unit/L 0 - 65 04/15 [place] CHEM PANEL AST 14 unit/L 0 - 37 04/15 [place] CHEM PANEL Alk Phos 82 unit/L 39 - 136 04/15 [place] CHEM PANEL Bili Total 0.5 mg/dL 0.2 - 1.3 04/15 [place] CHEM PANEL eGFR 10 04/15 Result Comment: The eGFR is calculated using the CKD-EPI formula. In most young, healthy individuals the eGFR will be >90 mL/ min/1.73m2. The eGFR declines with age. An eGFR of 60-89 may be normal in mL/min/1. some populations, particularly the elderly, for whom the CKD-EPI formula has not been extensively validated. Use of the eGFR is not recommended in the following populations: [place] [address] Individuals with unstable creatinine concentrations, including patients and those with serious co-morbid conditions. Patients with extremes in muscle mass or diet. The data above are obtained from the National Kidney Disease Education Program (NKDEP) which additionally recommends that when the eGFR is used in patients with extremes of body mass index for purposes of drug dosing, the eGFR should be multiplied by the estimated BMI. CHEM PANEL Potassium 3.2 meq/L 3.5 - 5.1 04/15 Lvl [place] CHEM PANEL Chloride Lvl 103 meq/L 95 - 109 04/15 [place] CHEM PANEL Glucose Lvl 95 mg/dL 70 - 99 04/15 [place] CHEM PANEL BUN 34 mg/dL 7 - 22 04/15 [place] CHEM PANEL Creatinine 5.83 mg/dL 0.50 - 04/15 Lvl 1.40 [place] CHEM PANEL Sodium Lvl 138 meq/L 135 - 145 04/15 [place] CHEM PANEL CO2 23 meq/L 24 - 32 07/ [place] CHEM PANEL AGAP 15.2 meq/L 10.0 - 07 MH 20.0 [place] CHEM PANEL Calcium Lvl 8.5 mg/dL 8.5 - 10.5 04/15 [place] CHEM PANEL Phosphorus 4.2 mg/dL 2.5 - 4.5 04/15 [place] HEMATOLOGY Lymphocytes 1.5 K/CMM 1.0 - 5.5 07/08 MH # [place] HEMATOLOGY Monocytes # 0.5 K/CMM 0.0 - 0.8 07 [place] HEMATOLOGY Basophils 1.0 % 0.0 - 1.0 04/15 [place] HEMATOLOGY Segs-Bands # 3.5 K/CMM 1.5 - 8.1 04/15 [place] HEMATOLOGY Basophils # 0.1 K/CMM 0.0 - 0.2 04/15 [place] HEMATOLOGY Eosinophils 0.2 K/CMM 0.0 - 0.5 04/15 MH [place] HEMATOLOGY Lymphocytes 26.7 % 20.0 - 0708 MH 40.0 [place] HEMATOLOGY Segs 61.0 % 45.0 - 0708 MH 75.0 [place] HEMATOLOGY Monocytes 8.0 % 2.0 - 12.0 04/15 [place] HEMATOLOGY Eosinophils 3.3 % 0.0 - 4.0 04/15 [place] HEMATOLOGY WBC 5.7 K/CMM 3.7 - 10.4 04/15 [place] HEMATOLOGY RBC 4.48 M/CMM 4.70 - 08 MH 6.10 [place] HEMATOLOGY RDW 17.7 % 11.5 - 07/08 MH 14. [place] HEMATOLOGY Platelet 215 K/CMM 133 - 450 07 [place] HEMATOLOGY MPV 7.2 fL 7.4 - 10.4 04/15 [place] HEMATOLOGY Hgb 11.6 g/dL 14.0 - 07 MH 18.0 [place] HEMATOLOGY Hct 35.5 % 42.0 - 07 MH 54.0 [place] HEMATOLOGY MCHC 32.6 g/dL 32.0 - 07/08 MH 36.0 [place] HEMATOLOGY MCV 79.2 fL 80.0 - 04/15 MH 94.0 /2017 [place] HEMATOLOGY MCH 25.8 pg 27.0 - 07 MH 31.0 [place] CARDIAC Troponin-I null 0.00 - 07 [place] 0.40 /2017 [place] CARDIAC proBNP 10997 0 - 125 04/15 [place] pg/mL /2017 [place] CARDIAC Total CK 37 unit/L 12 - 191 04/15 [facility] [place] CARDIAC CK MB 1.0 ng/mL 0.5 - 3.6 04/15 [facility] [place] CARDIAC CK MB Index 2.7 0.0 - 2.5 04/15 [facility] [place] CHEM PANEL eGFR 12 04/15 Result Comment: The eGFR is calculated using the CKD-EPI formula. In most young, healthy individuals the eGFR will be >90 mL/ min/1.73m2. The eGFR declines with age. An eGFR of 60-89 may be normal in mL/min/1.7 some populations, particularly the elderly, for whom the CKD-EPI formula has not been extensively validated. Use of the eGFR is not recommended in the following populations: [address] Individuals with unstable creatinine concentrations, including patients and those with serious co-morbid conditions. Patients with extremes in muscle mass or diet. The data above are obtained from the National Kidney Disease Education Program (NKDEP) which additionally recommends that when the eGFR is used in patients with extremes of body mass index for purposes of drug dosing, the eGFR should be multiplied by the estimated BMI. CHEM PANEL Alk Phos 88 unit/L 39 - 136 04/15 [place] CHEM PANEL AST 14 unit/L 0 - 37 04/15 [place] CHEM PANEL Total 7.4 g/dL 6.4 - 8.4 04/15 Protein [place] CHEM PANEL Bili Total 0.5 mg/dL 0.2 - 1.3 04/15 [place] CHEM PANEL ALT 17 unit/L 0 - 65 04/15 [place] CHEM PANEL Albumin Lvl 3.2 g/dL 3.5 - 5.0 04/15 [place] CHEM PANEL Calcium Lvl 8.1 mg/dL 8.5 - 10.5 04/15 [place] CHEM PANEL Sodium Lvl 137 meq/L 135 - 145 07/ [place] CHEM PANEL CO2 26 meq/L 24 - 32 07 [place] CHEM PANEL Creatinine 4.94 mg/dL 0.50 - 07 MH Lvl 1.40 /2017 [place] CHEM PANEL BUN 24 mg/dL 7 - 22 04/15 [place] CHEM PANEL Glucose Lvl 156 mg/dL 70 - 99 04/15 [place] CHEM PANEL B/C Ratio 5 6 - 25 04/15 [place] CHEM PANEL AGAP 12.3 meq/L 10.0 - 07 MH 20.0 [place] CHEM PANEL A/G Ratio 0.8 0.7 - 1.6 04/15 [place] CHEM PANEL Globulin 4.2 g/dL 2.7 - 4.2 04/15 [place] CHEM PANEL Chloride Lvl 102 meq/L 95 - 109 04/15 [place] CHEM PANEL Potassium 3.3 meq/L 3.5 - 5.1 04/15 MH Lvl [place] HEMATOLOGY WBC 5.0 K/CMM 3.7 - 10.4 04/15 [place] HEMATOLOGY RDW 17.6 % 11.5 - 07 MH 14.5 [place] HEMATOLOGY MCHC 33.5 g/dL 32.0 - 07 MH 36.0 [place] HEMATOLOGY MPV 7.3 fL 7.4 - 10.4 04/15 [place] HEMATOLOGY RBC 4.25 M/CMM 4.70 - 07 MH 6.10 [place] HEMATOLOGY MCH 26.0 pg 27.0 - 07 MH 31.0 [place] HEMATOLOGY MCV 77.5 fL 80.0 - 04/15 MH 94.0 [place] HEMATOLOGY Hct 33.0 % 42.0 - 07 MH 54.0 [place] HEMATOLOGY Hgb 11.1 g/dL 14.0 - 04/15 MH 18.0 [place] HEMATOLOGY Platelet 208 K/CMM 133 - 450 04/15 [place] HEMATOLOGY Segs-Bands # 3.6 K/CMM 1.5 - 8.1 04/15 [place] HEMATOLOGY Lymphocytes 0.9 K/CMM 1.0 - 5.5 0708 MH # /2017 [place] HEMATOLOGY Basophils # 0.1 K/CMM 0.0 - 0.2 04/15 [place] HEMATOLOGY Eosinophils 0.1 K/CMM 0.0 - 0.5 / # /2017 [place] HEMATOLOGY Monocytes # 0.4 K/CMM 0.0 - 0.8 04/15 [place] HEMATOLOGY Basophils 1.0 % 0.0 - 1.0 04/15 [place] HEMATOLOGY Eosinophils 2.0 % 0.0 - 4.0 04/15 [place] HEMATOLOGY Microcyte 1+ None Seen 04/15 [place] *ABN* (04/14/18 7:12 PM) HEMATOLOGY Plt Morph Normal 04/15 [place] (04/14/18 7:12 PM) HEMATOLOGY Lymphocytes 17.2 % 20.0 - 04/15 40.0 [place] HEMATOLOGY Segs 72.3 % 45.0 - 04/15 75.0 [place] HEMATOLOGY Monocytes 7.5 % 2.0 - 12.0 04/15 [place] Chest 1view Chest 1view EXAM: Chest 1view DX 04/14 - [facility] DX DX /2017 - [place] DATE: 04/14/2018 6:55 PM CDT INDICATION: - chest pain Read by: Jasbir Camilo MD Dictated Date/time: 04/14/18 19:20 COMPARISON: 03/17/2018. Electronically Signed by: Jasbir Camilo MD 04/14/18 19:21 FINAL REPORT IMPRESSION: Stable cardiac silhouette and mediastinum. Atherosclerotic thoracic aorta. Right central line is unchanged with its tip near the atrial caval junction. Mild nonspecific lingula or left lower lobe opacity is present may represent infiltrate. Please clinically for pneumonia. No significant pleural effusion or pneumothorax. SL: [id number] Brain wo Brain wo Patient Name: ROBYN AGUILA 03/19 - [facility] contrast contrast MRI /2017 - [place] MRI : 1960; Age: 57 years y/o Male MR: [id number] Read by: Albaro Jacobs DO Dictated Date/time: 03/19/18 20:13 Electronically Signed by: Albaro Jacobs DO 03/19/18 20:29 FINAL REPORT Study: Brain wo contrast MRI 03/19/2018 10:15 AM CDT INDICATIONS: - confusion, weakness Comparison: None TECHNIQUE: Multiplanar MRI of the brain is performed on a 1.5 Jenelle magnet. Contrast: None. FINDINGS: BRAIN PARENCHYMA: Age appropriate involutionary changes with moderate confluent small vessel ischemic changes (Fazekas II). The brain parenchyma otherwise has normal signal with normal joshi-white junct ion, sulci, and gyri. There is no mass effect or midline shift. There is no extra-axial fluid collection or intraparenchymal hemorrhage. The corpus callosum appears normal. There is no diffusion weighte d imaging or ADC map abnormality to suggest acute/subacute ischemia. There is no magnetic susceptibility to suggest recent or remote intracranial hemorrhage. Perivascular cyst left inferior basal ganglia. CEREBELLOPONTINE REGIONS AND SKULL BASE: The cerebellopontine angles appear unremarkable. The skull base, craniocervical junction, and brainstem are normal. The optic chiasm is normal. The sellar and pineal regions are unremarkable. The inferior tip of the cerebellum is above the foramen magnum (line between the opisthion to basion) which is considered normal.. VENTRICLES: The lateral ventricles, third and fourth ventricles appear unremarkable. The basilar cisterns are normal. VESSELS: The venous sinuses are grossly unremarkable. The expected intracranial flow voids are present. ORBITS, VISUALIZED PARANASAL SINUSES AND MASTOIDS: Large polyp or mucous cyst left maxillary sinus. The visualized orbits and paranasal sinuses are otherwise unremarkable. The mastoid air cells are unopacified. IMPRESSION: 1. Age appropriate involutionary changes with moderate confluent small vessel ischemic changes. 2. Large polyp or mucous cyst left maxillary sinus. SL: SROSENBLUM-PC TOXICOLOGY Vanco Lvl 17.4 ug/ml 03/19 [place] CHEM PANEL Magnesium 2.1 mg/dL 1.8 - 2.4 03/19 Lvl [place] CHEM PANEL Phosphorus 5.6 mg/dL 2.5 - 4.5 03/19 [place] ELECTROLYTE AGAP 17.3 meq/L 10.0 - 03/19 MH S 20.0 [place] ELECTROLYTE eGFR 5 03/19 Result Comment: The eGFR is calculated using the CKD-EPI formula. In most young, healthy individuals the eGFR will be >90 mL/ min/1.73m2. The eGFR declines with age. An eGFR of 60-89 may be normal in S mL/min/1.7 /2018 some populations, particularly the elderly, for whom the CKD-EPI formula has not been extensively validated. Use of the eGFR is not recommended in the following populations: [place] 3m2 Individuals with unstable creatinine concentrations, including patients and those with serious co-morbid conditions. Patients with extremes in muscle mass or diet. The data above are obtained from the National Kidney Disease Education Program (NKDEP) which additionally recommends that when the eGFR is used in patients with extremes of body mass index for purposes of drug dosing, the eGFR should be multiplied by the estimated BMI. ELECTROLYTE Chloride Lvl 94 meq/L 95 - 109 03/19 S [place] ELECTROLYTE CO2 24 meq/L 24 - 32 03/19 S [place] ELECTROLYTE Calcium Lvl 8.3 mg/dL 8.5 - 10.5 03/19 S [place] ELECTROLYTE Glucose Lvl 120 mg/dL 70 - 99 03/19 S [place] ELECTROLYTE Potassium 4.3 meq/L 3.5 - 5.1 03/19 S Lvl [place] ELECTROLYTE Sodium Lvl 131 meq/L 135 - 145 03/19 S [place] ELECTROLYTE BUN 55 mg/dL 7 - 22 03/19 S /2017 [place] ELECTROLYTE Creatinine 9.62 mg/dL 0.50 - 03/19 S Lvl 1.40 [place] HEMATOLOGY Basophils 0.3 % 0.0 - 1.0 03/19 [place] HEMATOLOGY Monocytes 10.9 % 2.0 - 12.0 03/19 [place] HEMATOLOGY Segs 78.7 % 45.0 - 03/19 MH 75.0 [place] HEMATOLOGY Lymphocytes 8.8 % 20.0 - 03/19 40.0 [place] HEMATOLOGY Eosinophils 0.1 K/CMM 0.0 - 0.5 03/19 # /2018 [place] HEMATOLOGY Monocytes # 0.9 K/CMM 0.0 - 0.8 03/19 [place] HEMATOLOGY Eosinophils 1.3 % 0.0 - 4.0 03/19 [place] HEMATOLOGY Microcyte 1+ None Seen 03/19 [place] *ABN* (03/19/18 3:01 AM) HEMATOLOGY Segs-Bands # 6.5 K/CMM 1.5 - 8.1 03/19 [place] HEMATOLOGY Lymphocytes 0.7 K/CMM 1.0 - 5.5 03/19 MH # /2017 [place] HEMATOLOGY MPV 7.9 fL 7.4 - 10.4 03/19 [place] HEMATOLOGY Platelet 240 K/CMM 133 - 450 03/19 [place] HEMATOLOGY MCH 26.4 pg 27.0 - 03/19 MH 31.0 [place] HEMATOLOGY RDW 15.4 % 11.5 - 06 MH 14.5 [place] HEMATOLOGY MCHC 34.2 g/dL 32.0 - 03/19 MH 36.0 [place] HEMATOLOGY RBC 2.99 M/CMM 4.70 - 03/19 MH 6.10 [place] HEMATOLOGY WBC 8.2 K/CMM 3.7 - 10.4 03/19 [place] HEMATOLOGY Hct 23.1 % 42.0 - 03/19 MH 54.0 [place] HEMATOLOGY Hgb 7.9 g/dL 14.0 - 03/19 MH 18.0 [place] HEMATOLOGY MCV 77.1 fL 80.0 - 03/19 MH 94.0 [place] CHEM PANEL Magnesium 2.3 mg/dL 1.8 - 2.4 03/18 Lvl [place] CHEM PANEL eGFR 6 03/18 Result Comment: The eGFR is calculated using the CKD-EPI formula. In most young, healthy individuals the eGFR will be >90 mL/ min/1.73m2. The eGFR declines with age. An eGFR of 60-89 may be normal in mL/min/1. some populations, particularly the elderly, for whom the CKD-EPI formula has not been extensively validated. Use of the eGFR is not recommended in the following populations: [address] Individuals with unstable creatinine concentrations, including patients and those with serious co-morbid conditions. Patients with extremes in muscle mass or diet. The data above are obtained from the National Kidney Disease Education Program (NKDEP) which additionally recommends that when the eGFR is used in patients with extremes of body mass index for purposes of drug dosing, the eGFR should be multiplied by the estimated BMI. CHEM PANEL Bili Total 0.4 mg/dL 0.2 - 1.3 03/18 [place] CHEM PANEL Potassium 4.0 meq/L 3.5 - 5.1 03/18 Lvl [place] CHEM PANEL Glucose Lvl 105 mg/dL 70 - 99 03/18 [place] CHEM PANEL BUN 50 mg/dL 7 - 22 03/18 [place] CHEM PANEL Sodium Lvl 133 meq/L 135 - 145 03/18 [place] CHEM PANEL Creatinine 8.40 mg/dL 0.50 - 03/18 MH Lvl 1.40 [place] CHEM PANEL Chloride Lvl 97 meq/L 95 - 109 03/18 [place] CHEM PANEL Alk Phos 104 unit/L 39 - 136 03/18 [place] CHEM PANEL Albumin Lvl 2.7 g/dL 3.5 - 5.0 03/18 [place] CHEM PANEL Total 6.9 g/dL 6.4 - 8.4 03/18 [place] CHEM PANEL Calcium Lvl 8.0 mg/dL 8.5 - 10.5 03/18 [place] CHEM PANEL CO2 26 meq/L 24 - 32 03/18 [place] CHEM PANEL AST 9 unit/L 0 - 37 03/18 [place] CHEM PANEL ALT 12 unit/L 0 - 65 03/18 [place] CHEM PANEL B/C Ratio 6 6 - 25 03/18 [place] CHEM PANEL AGAP 14.0 meq/L 10.0 - 03/18 MH 20.0 [place] CHEM PANEL Globulin 4.2 g/dL 2.7 - 4.2 03/18 [place] CHEM PANEL A/G Ratio 0.6 0.7 - 1.6 03/18 [place] CHEM PANEL Phosphorus 5.7 mg/dL 2.5 - 4.5 03/18 [place] HEMATOLOGY INR 1.23 0.85 - 03/18 MH 1.17 [place] HEMATOLOGY PTT 42.0 s 22.9 - 03/18 MH 35.8 [place] HEMATOLOGY PT 15.6 s 12.0 - 03/18 MH 14.7 [place] HEMATOLOGY Microcyte 1+ None Seen 03/18 [place] *ABN* (03/18/18 3:29 AM) HEMATOLOGY Monocytes # 1.0 K/CMM 0.0 - 0.8 03/18 [place] HEMATOLOGY Eosinophils 0.1 K/CMM 0.0 - 0.5 10 MH # /2017 [place] HEMATOLOGY Lymphocytes 0.9 K/CMM 1.0 - 5.5 10 MH # /2017 [place] HEMATOLOGY Segs-Bands # 5.0 K/CMM 1.5 - 8.1 03/18 [place] HEMATOLOGY Eosinophils 1.6 % 0.0 - 4.0 03/18 [place] HEMATOLOGY Lymphocytes 13.3 % 20.0 - 03/18 MH 40.0 [place] HEMATOLOGY Basophils 0.5 % 0.0 - 1.0 03/18 [place] HEMATOLOGY Monocytes 13.9 % 2.0 - 12.0 03/18 [place] HEMATOLOGY Segs 70.7 % 45.0 - 03/18 MH 75.0 [place] HEMATOLOGY Platelet 217 K/CMM 133 - 450 03/18 [place] HEMATOLOGY MPV 7.9 fL 7.4 - 10.4 03/18 [place] HEMATOLOGY MCHC 33.8 g/dL 32.0 - 03/18 MH 36.0 [place] HEMATOLOGY RDW 15.0 % 11.5 - 03/18 MH 14.5 [place] HEMATOLOGY Hct 21.8 % 42.0 - 03/18 MH 54.0 [place] HEMATOLOGY MCV 77.9 fL 80.0 - 03/18 MH 94.0 [place] HEMATOLOGY MCH 26.3 pg 27.0 - 03/18 MH 31.0 [place] HEMATOLOGY RBC 2.80 M/CMM 4.70 - 03/18 MH 6.10 [place] HEMATOLOGY Hgb 7.4 g/dL 14.0 - 03/18 MH 18.0 [place] HEMATOLOGY WBC 7.1 K/CMM 3.7 - 10.4 03/18 [place] TOXICOLOGY Vanco Lvl 18.3 ug/ml 03/17 [place] Chest Chest Clinical Indication: - Chest pain, dizziness, palpitations. 03/17 - [facility] /2017 - [place] Embolism Embolism CTA Comparison: None. CTA Read by: Tavon Hernandez MD Dictated Date/time: 03/17/18 14:58 TECHNIQUE: Helical CT angiography of the chest was performed from the lung bases through the thoracic inlet following the administration of intravenous contrast. Axial, coronal, and sagittal multiplanar Electronically Signed by: Tavon Hernandez MD 03/17/18 15:05 reconstructions provided. 3D post-processed reconstructions were generated on the scanner workstation and are also provided. . FINAL REPORT IV contrast: 100 cc Omnipaque. Dose: RWO=467 mGy-cm FINDINGS: PULMONARY ARTERIES: No pulmonary emboli are identified to the segmental level. The pulmonary trunk, left, and right main pulmonary arteries are not enlarged. SYSTEMIC VESSELS: The thoracic aorta is normal in caliber without dissection or aneurysm. The great vessels appear unremarkable. HEART: There is no evidence of RV strain. Mild cardiomegaly with trace pericardial effusion measuring up to 0.8 cm in thickness anteriorly. There is no pericardial effusion. LUNGS AND PLEURA: Layering left pleural effusion with associated enhancing left lower lobe airspace disease, possibly atelectasis or infection. Mild central vascular congestion noted without interlobula r septal thickening to suggest diffuse pulmonary edema. No other confluent airspace opacities. No pneumothorax. The trachea and central airways are clear. MEDIASTINUM: No hilar or mediastinal adenopathy. Right IJ tunneled dialysis catheter present. VISUALIZED UPPER ABDOMEN: Hepatosplenomegaly, partially visualized. OSSEOUS STRUCTURES: No acute abnormality seen. SOFT TISSUE: Mild soft tissue edema IMPRESSION: 1. Negative for pulmonary embolus to the segmental level. 2. Mild cardiomegaly with central vascular congestion, layering left pleural effusion with basilar airspace disease (atelectasis versus infection), small pericardial effusion, and mild subcutaneous edema. No maci pulmonary edema. 3. Partially hepatosplenomegaly in the upper abdomen SL: JEANETTE Brain wo Brain wo Patient Name: ROBYN AGUILA 03/17 - [facility] contrast CT contrast CT /2017 - [place] : 1960; Age: 57 years Male MR: [id number] Read by: Warren Starkey MD Dictated Date/time: 03/17/18 14:57 Electronically Signed by: Warren Starkey MD 03/17/18 15:04 FINAL REPORT Study: Brain wo contrast CT 03/17/2018 6:51 AM CDT Clinical Indication: Altered mental status. CT Radiation Dose DLP 1032 mGy-cm. TECHNIQUE: CT images were obtained from the foramen magnum to the vertex without the use of intravenous contrast on a multidetector CT. Coronal and sagittal reconstructions were obtained. FINDINGS: BRAIN PARENCHYMA: There is generalized brain parenchymal atrophy related to the patient's age. Nonspecific periventricular white matter disease changes are noted. Atherosclerotic calcifications are present within the carotid siphons and distal vertebral arteries. There are no focal mass lesions on this noncontrast head CT. There is no mass effect, midline shift or edema. There are no intra-axial or extra-axial fluid collections. There is no intraventricular or intraparenchymal hemorrhage. There is no noncontrast CT evidence of a subacute stroke. Chronic left basal ganglia lacunar infarction. Th e pineal, sellar, brainstem, cerebellum and skull base regions appear normal. VENTRICLES: The lateral ventricles, third and fourth ventricles appear normal. The basilar cisterns are normal. ORBITS, MASTOIDS AND PARANASAL SINUSES: The visualized orbits are normal. Left maxillary sinus polyp or mucous retention cyst. The mastoid air cells are clear. SKULL: There are no calvarial abnormalities seen. If there is further concern for intracranial pathology or acute stroke, MRI of the brain may be performed for complete assessment. IMPRESSION: Chronic age-related and small vessel ischemic changes without mass, hemorrhage or subacute stroke. SL: [id number] CHEM PANEL Lactic Acid 0.3 mMol/L 0.5 - 2.2 03/17 Lvl /2017 [place] IMMUNOLOGY Hep Bs Ag Negative Negative 03/17 [place] *NA* (03/17/18 8:00 AM) CHEM PANEL Lactic Acid 0.3 mMol/L 0.5 - 2.2 03/17 Lvl [place] CARDIAC CK MB Index 1.2 0.0 - 2.5 03/17 [facility] /2017 [place] CARDIAC Total CK 122 unit/L 12 - 191 03/17 [facility] /2017 [place] CARDIAC proBNP 28105 0 - 125 03/17 [place] pg/mL /2017 [place] CARDIAC CK MB 1.5 ng/mL 0.5 - 3.6 03/17 [facility] /2017 [place] CARDIAC Troponin-I null 0.00 - 03/17 [facility] 0.40 /2018 [place] CHEM PANEL Ammonia 33.0 <=45.0 03/17 umol/L uMol/L /2017 [place] CHEM PANEL eGFR 4 03/17 Result Comment: The eGFR is calculated using the CKD-EPI formula. In most young, healthy individuals the eGFR will be >90 mL/ min/1.73m2. The eGFR declines with age. An eGFR of 60-89 may be normal in MH mL/min/1. some populations, particularly the elderly, for whom the CKD-EPI formula has not been extensively validated. Use of the eGFR is not recommended in the following populations: [address] Individuals with unstable creatinine concentrations, including patients and those with serious co-morbid conditions. Patients with extremes in muscle mass or diet. The data above are obtained from the National Kidney Disease Education Program (NKDEP) which additionally recommends that when the eGFR is used in patients with extremes of body mass index for purposes of drug dosing, the eGFR should be multiplied by the estimated BMI. CHEM PANEL Alk Phos 89 unit/L 39 - 136 03/17 [place] CHEM PANEL Chloride Lvl 93 meq/L 95 - 109 03/17 [place] CHEM PANEL Globulin 4.1 g/dL 2.7 - 4.2 03/17 [place] CHEM PANEL A/G Ratio 0.7 0.7 - 1.6 03/17 [place] CHEM PANEL B/C Ratio 7 6 - 25 03/17 [place] CHEM PANEL AGAP 20.4 meq/L 10.0 - 03/17 MH 20.0 [place] CHEM PANEL Bili Total 0.4 mg/dL 0.2 - 1.3 03/17 [place] CHEM PANEL AST 11 unit/L 0 - 37 03/17 [place] CHEM PANEL ALT 10 unit/L 0 - 65 03/17 [place] CHEM PANEL Albumin Lvl 2.7 g/dL 3.5 - 5.0 03/17 [place] CHEM PANEL CO2 21 meq/L 24 - 32 03/17 [place] CHEM PANEL Total 6.8 g/dL 6.4 - 8.4 03/17 [place] CHEM PANEL Calcium Lvl 7.5 mg/dL 8.5 - 10.5 03/17 [place] CHEM PANEL Sodium Lvl 130 meq/L 135 - 145 03/17 [place] CHEM PANEL Potassium 4.4 meq/L 3.5 - 5.1 03/17 [place] CHEM PANEL Creatinine 12.50 0.50 - 03/17 MH Lvl mg/dL 1.40 [place] CHEM PANEL BUN 85 mg/dL 7 - 22 03/17 [place] CHEM PANEL Glucose Lvl 172 mg/dL 70 - 99 03/17 [place] CHEM PANEL Magnesium 1.9 mg/dL 1.8 - 2.4 03/17 [place] CHEM PANEL Lipase Lvl 65 unit/L 73 - 393 03/17 [place] CHEM PANEL Phosphorus 7.5 mg/dL 2.5 - 4.5 03/17 [place] HEMATOLOGY Monocytes # 0.8 K/CMM 0.0 - 0.8 03/17 [place] HEMATOLOGY Eosinophils 0.5 % 0.0 - 4.0 03/17 [place] HEMATOLOGY Lymphocytes 0.7 K/CMM 1.0 - 5.5 03/17 [place] HEMATOLOGY Basophils 0.5 % 0.0 - 1.0 03/17 [place] HEMATOLOGY Segs-Bands # 7.4 K/CMM 1.5 - 8.1 03/17 [place] HEMATOLOGY Microcyte 1+ None Seen 03/17 [place] *ABN* (03/17/18 3:09 AM) HEMATOLOGY Lymphocytes 7.7 % 20.0 - 03/17 MH 40.0 [place] HEMATOLOGY Monocytes 9.3 % 2.0 - 12.0 03/17 [place] HEMATOLOGY Segs 82.0 % 45.0 - 03/17 MH 75.0 [place] HEMATOLOGY INR 1.26 0.85 - 03/17 MH 1.17 [place] HEMATOLOGY PT 15.9 s 12.0 - 03/17 MH 14.7 [place] HEMATOLOGY MCH 26.4 pg 27.0 - 03/17 MH 31.0 [place] HEMATOLOGY MCV 77.8 fL 80.0 - 03/17 MH 94.0 [place] HEMATOLOGY Hct 22.2 % 42.0 - 03/17 MH 54.0 [place] HEMATOLOGY Hgb 7.5 g/dL 14.0 - 03/17 MH 18.0 [place] HEMATOLOGY WBC 9.0 K/CMM 3.7 - 10.4 03/17 [place] HEMATOLOGY RBC 2.86 M/CMM 4.70 - 03/17 MH 6.10 [place] HEMATOLOGY MPV 7.4 fL 7.4 - 10.4 03/17 [place] HEMATOLOGY Platelet 220 K/CMM 133 - 450 03/17 [place] HEMATOLOGY RDW 15.1 % 11.5 - 03/17 14.5 [place] HEMATOLOGY MCHC 34.0 g/dL 32.0 - 03/17 MH 36.0 [place] Chest 1view Chest 1view Chest, single view dated 03/17/2018. 03/17 [facility] /2017 - [place] HISTORY: Shortness of breath. Read by: Louis Roy MD Dictated Date/time: 03/17/18 02:49 Electronically Signed by: Louis Roy MD 03/17/18 02:52 FINAL REPORT Comparison is made to a prior study dated 01/22/2018. A right jugular hemodialysis catheter is identified with the tip projecting in the right atrium. The heart is enlarged.. The mediastinum is otherwise unremarkable. Asymmetric opacity is identified in th e left base and associated with a small left pleural effusion. The right lung appears clear. The pulmonary vasculature appears normal in caliber. No acute right pleural space abnormalities are noted. IMPRESSION: 1. Atelectasis or pneumonia in the left base with an associated small left pleural effusion. 2. Cardiomegaly without radiographic evidence of acute congestive heart failure. SL: 131 CARDIAC CK MB Index 1.7 0.0 - 2.5 01/23 ENZYMES [place] CARDIAC CK MB 2.9 ng/mL 0.5 - 3.6 01/23 ENZYMES [place] CARDIAC Troponin-I null 0.00 - 01/23 EN[facility]YMES 0.40 /2017 [place] CARDIAC Total CK 166 unit/L 12 - 191 01/23 ENZYMES [place] CARDIAC proBNP 4827 pg/mL 0 - 125 01/23 ENZYMES [place] CHEM PANEL Magnesium 1.9 mg/dL 1.8 - 2.4 01/23 Lvl [place] CHEM PANEL Phosphorus 9.1 mg/dL 2.5 - 4.5 01/23 [place] CHEM PANEL eGFR 5 01/23 Result Comment: The eGFR is calculated using the CKD-EPI formula. In most young, healthy individuals the eGFR will be >90 mL/ min/1.73m2. The eGFR declines with age. An eGFR of 60-89 may be normal in mL/min/1. some populations, particularly the elderly, for whom the CKD-EPI formula has not been extensively validated. Use of the eGFR is not recommended in the following populations: [address] Individuals with unstable creatinine concentrations, including patients and those with serious co-morbid conditions. Patients with extremes in muscle mass or diet. The data above are obtained from the National Kidney Disease Education Program (NKDEP) which additionally recommends that when the eGFR is used in patients with extremes of body mass index for purposes of drug dosing, the eGFR should be multiplied by the estimated BMI. CHEM PANEL Alk Phos 115 unit/L 39 - 136 01/23 [place] CHEM PANEL AST 23 unit/L 0 - 37 01/23 [place] CHEM PANEL ALT 24 unit/L 0 - 65 01/23 [place] CHEM PANEL A/G Ratio 0.8 0.7 - 1.6 01/23 [place] CHEM PANEL Globulin 4.0 g/dL 2.7 - 4.2 01/23 [place] CHEM PANEL Bili Total 0.4 mg/dL 0.2 - 1.3 01/23 [place] CHEM PANEL Potassium 4.4 meq/L 3.5 - 5.1 01/23 Lvl [place] CHEM PANEL Calcium Lvl 6.7 mg/dL 8.5 - 10.5 01/23 Result Comment: [place] Critical Result(s) called to Valorie Sanchez at 2017_ byJJ_. Read back OK. CHEM PANEL Sodium Lvl 130 meq/L 135 - 145 01/23 [place] CHEM PANEL Creatinine 11.00 0.50 - 01/23 Lvl mg/dL 1.40 [place] CHEM PANEL AGAP 17.4 meq/L 10.0 - 01/23 MH 20.0 [place] CHEM PANEL CO2 25 meq/L 24 - 32 01/23 [place] CHEM PANEL Chloride Lvl 92 meq/L 95 - 109 01/23 [place] CHEM PANEL Albumin Lvl 3.4 g/dL 3.5 - 5.0 04/17 MH /2018 [place] CHEM PANEL Total 7.4 g/dL 6.4 - 8.4 01/23 [place] CHEM PANEL B/C Ratio 8 6 - 25 01/23 [place] CHEM PANEL BUN 84 mg/dL 7 - 22 01/23 [place] CHEM PANEL Glucose Lvl 123 mg/dL 70 - 99 01/23 [place] HEMATOLOGY Lymphocytes 21.5 % 20.0 - 01/23 MH 40.0 [place] HEMATOLOGY Lymphocytes 1.6 K/CMM 1.0 - 5.5 01/23 MH # [place] HEMATOLOGY Eosinophils 0.3 K/CMM 0.0 - 0.5 01/23 [place] HEMATOLOGY Segs 63.7 % 45.0 - 01/23 MH 75.0 [place] HEMATOLOGY Segs-Bands # 4.8 K/CMM 1.5 - 8.1 01/23 [place] HEMATOLOGY Eosinophils 3.5 % 0.0 - 4.0 01/23 [place] HEMATOLOGY Monocytes 10.4 % 2.0 - 12.0 01/23 [place] HEMATOLOGY Basophils 0.9 % 0.0 - 1.0 01/23 [place] HEMATOLOGY Basophils # 0.1 K/CMM 0.0 - 0.2 01/23 [place] HEMATOLOGY Monocytes # 0.8 K/CMM 0.0 - 0.8 01/23 [place] HEMATOLOGY INR 1.06 0.85 - 01/23 MH 1. [place] HEMATOLOGY PT 13.8 s 12.0 - 01/23 MH 14.7 [place] HEMATOLOGY PTT 35.7 s 22.9 - 01/23 MH 35.8 [place] HEMATOLOGY Platelet 238 K/CMM 133 - 450 01/23 [place] HEMATOLOGY MPV 7.5 fL 7.4 - 10.4 01/23 [place] HEMATOLOGY Hct 25.4 % 42.0 - 01/23 MH 54.0 [place] HEMATOLOGY MCV 80.3 fL 80.0 - 01/23 MH 94.0 [place] HEMATOLOGY MCH 28.2 pg 27.0 - 01/23 MH 31.0 [place] HEMATOLOGY Hgb 8.9 g/dL 14.0 - 01/23 18.0 [place] HEMATOLOGY MCHC 35.1 g/dL 32.0 - 01/23 36.0 [place] HEMATOLOGY RDW 13.9 % 11.5 - 01/23 14.5 [place] HEMATOLOGY WBC 7.6 K/CMM 3.7 - 10.4 01/23 [place] HEMATOLOGY RBC 3.16 M/CMM 4.70 - 01/23 MH 6.10 /2017 [place] URINE AND UA <=1.0 0.1 - 1.0 01/23 STOOL Urobilinogen mg/dL [place] URINE AND UA Glucose 50 mg/dL 01/23 [place] URINE AND UA Color STRAW 01/23 [place] URINE AND UA Sq Epi Few /LPF Few /LPF 01/23 [place] URINE AND UA WBC 8 /HPF 0 - 5 01/23 [place] URINE AND UA Mucus Few /LPF None Seen 01/23 STOOL /LPF [place] URINE AND UA Bacteria Moderate None Seen 01/23 [facility] /HPF /HPF [place] URINE AND UA Leuk Est Small Negative 01/23 [place] *ABN* (01/22/18 7:37 PM) URINE AND UA Protein >=300 Negative 01/23 [facility] mg/dL mg/dL [place] URINE AND UA Ketones Negative Negative 01/23 [facility] mg/dL mg/dL [place] URINE AND UA pH 6.0 5.0 - 8.0 01/23 [place] URINE AND UA Turbidity Clear Clear 01/23 [place] (01/22/18 7:37 PM) URINE AND UA Spec Grav 1.005 <=1.030 01/23 [place] URINE AND UA Nitrite Negative Negative 01/23 [place] (01/22/18 7:37 PM) URINE AND UA Blood Small Negative 01/23 [place] *ABN* (01/22/18 7:37 PM) URINE AND UA Bili Negative Negative 01/23 [place] *NA* (01/22/18 7:37 PM) Chest 2 Chest 2 EXAM: Chest 2 views DX 01/22 - [facility] views DX views DX /2017 - [place] DATE: 01/22/2018 7:31 PM CDT INDICATION: - dyspnea Read by: Jasbir Camilo MD Dictated Date/time: 01/22/18 20:13 COMPARISON: 12/15/2017. Electronically Signed by: Jasbir Camilo MD 01/22/18 20:13 FINAL REPORT IMPRESSION: Stable moderately enlarged cardiac silhouette. No definite failure. No gross focal consolidation, significant pleural effusion or pneumothorax detected. New right IJ line is present with its tip near the atrial caval junction. SL: [id number] CHEM PANEL Magnesium 1.8 mg/dL 1.8 - 2.4 12/20 MH Lvl [place] CHEM PANEL eGFR 4 12/20 Result Comment: The eGFR is calculated using the CKD-EPI formula. In most young, healthy individuals the eGFR will be >90 mL/ min/1.73m2. The eGFR declines with age. An eGFR of 60-89 may be normal in mL/min/1. some populations, particularly the elderly, for whom the CKD-EPI formula has not been extensively validated. Use of the eGFR is not recommended in the following populations: [place] 3m2 Individuals with unstable creatinine concentrations, including patients and those with serious co-morbid conditions. Patients with extremes in muscle mass or diet. The data above are obtained from the National Kidney Disease Education Program (NKDEP) which additionally recommends that when the eGFR is used in patients with extremes of body mass index for purposes of drug dosing, the eGFR should be multiplied by the estimated BMI. CHEM PANEL Creatinine 11.60 0.50 - 12/20 MH Lvl mg/dL 1.40 [place] CHEM PANEL Calcium Lvl 6.9 mg/dL 8.5 - 10.5 12/20 Result Comment: [place] Critical Result(s) called to Dora Gregory RN at 12/20/2017 06:37 byCH. Read back OK. CHEM PANEL CO2 27 meq/L 24 - 32 12/20 [place] CHEM PANEL Sodium Lvl 133 meq/L 135 - 145 12/20 [place] CHEM PANEL Chloride Lvl 94 meq/L 95 - 109 12/20 [place] CHEM PANEL Potassium 3.7 meq/L 3.5 - 5.1 12/20 MH Lvl /2017 [place] CHEM PANEL BUN 104 mg/dL 7 - 22 12/20 [place] CHEM PANEL Glucose Lvl 85 mg/dL 70 - 99 12/20 [place] CHEM PANEL AGAP 15.7 meq/L 10.0 - 12/20 MH 20.0 [place] HEMATOLOGY Eosinophils 0.2 K/CMM 0.0 - 0.5 12/20 MH # /2017 [place] HEMATOLOGY Monocytes # 0.6 K/CMM 0.0 - 0.8 12/20 [place] HEMATOLOGY Microcyte 1+ None Seen 12/20 [place] *ABN* (12/20/17 5:09 AM) HEMATOLOGY Segs 71.0 % 45.0 - 12/20 MH 75.0 [place] HEMATOLOGY Lymphocytes 1.0 K/CMM 1.0 - 5.5 12/20 MH # [place] HEMATOLOGY Basophils 0.8 % 0.0 - 1.0 12/20 [place] HEMATOLOGY Segs-Bands # 4.6 K/CMM 1.5 - 8.1 12/20 [place] HEMATOLOGY Lymphocytes 15.7 % 20.0 - 12/20 MH 40.0 [place] HEMATOLOGY Eosinophils 3.1 % 0.0 - 4.0 12/20 [place] HEMATOLOGY Monocytes 9.4 % 2.0 - 12.0 12/20 [place] HEMATOLOGY Platelet 193 K/CMM 133 - 450 12/20 [place] HEMATOLOGY MCV 77.5 fL 80.0 - 12/20 MH 94.0 [place] HEMATOLOGY MCHC 35.5 g/dL 32.0 - 12/20 MH 36.0 [place] HEMATOLOGY MCH 27.5 pg 27.0 - 12/20 MH 31.0 [place] HEMATOLOGY RDW 14.1 % 11.5 - 12/20 MH 14. [place] HEMATOLOGY MPV 7.7 fL 7.4 - 10.4 12/20 [place] HEMATOLOGY Hct 23.5 % 42.0 - 12/20 MH 54.0 [place] HEMATOLOGY Hgb 8.4 g/dL 14.0 - 12/20 MH 18.0 [place] HEMATOLOGY RBC 3.03 M/CMM 4.70 - 12/20 MH 6.10 [place] HEMATOLOGY WBC 6.5 K/CMM 3.7 - 10.4 12/20 [place] PARATHYROID Ca Norm WB 0.86 1.05 - 12/20 Result PROFILE mMol/L 11.02 Comment: [place] Critical Result(s) called to A DEGUIA at 12/20/2017 05:58 by D^2. Read back OK. PARATHYROID Ca Ion WB 0.86 1.05 - 12/20 Result PROFILE mMol/L 11.02 Comment: [place] Critical Result(s) called to A DEGUIA at 12/20/2017 05:58 by D^2. Read back OK. URINE AND Occult Bld Positive Negative 12/[address] [place] *ABN* (12/19/17 12:00 PM) CHEM PANEL Phosphorus 8.2 mg/dL 2.5 - 4.5 12/19 [place] CHEM PANEL A/G Ratio 0.8 0.7 - 1.6 12/19 [place] CHEM PANEL AST 9 unit/L 0 - 37 12/19 [place] CHEM PANEL ALT 10 unit/L 0 - 65 12/19 [place] CHEM PANEL Globulin 3.5 g/dL 2.7 - 4.2 12/19 [place] CHEM PANEL Albumin Lvl 2.7 g/dL 3.5 - 5.0 12/19 [place] CHEM PANEL eGFR 4 12/19 Result Comment: The eGFR is calculated using the CKD-EPI formula. In most young, healthy individuals the eGFR will be >90 mL/ min/1.73m2. The eGFR declines with age. An eGFR of 60-89 may be normal in mL/min/1.7 some populations, particularly the elderly, for whom the CKD-EPI formula has not been extensively validated. Use of the eGFR is not recommended in the following populations: [address] Individuals with unstable creatinine concentrations, including patients and those with serious co-morbid conditions. Patients with extremes in muscle mass or diet. The data above are obtained from the National Kidney Disease Education Program (NKDEP) which additionally recommends that when the eGFR is used in patients with extremes of body mass index for purposes of drug dosing, the eGFR should be multiplied by the estimated BMI. CHEM PANEL Alk Phos 100 unit/L 39 - 136 12/19 [place] CHEM PANEL Bili Total 0.3 mg/dL 0.2 - 1.3 12/19 [place] CHEM PANEL Glucose Lvl 88 mg/dL 70 - 99 12/19 [place] CHEM PANEL Potassium 3.6 meq/L 3.5 - 5.1 12/19 MH Lvl /2017 [place] CHEM PANEL Chloride Lvl 95 meq/L 95 - 109 12/19 [place] CHEM PANEL Sodium Lvl 135 meq/L 135 - 145 12/19 [place] CHEM PANEL BUN 103 mg/dL 7 - 22 12/19 [place] CHEM PANEL Creatinine 11.70 0.50 - 12/19 Lvl mg/dL 1.40 [place] CHEM PANEL B/C Ratio 9 6 - 25 12/19 [place] CHEM PANEL Total 6.2 g/dL 6.4 - 8.4 12/19 MH [place] CHEM PANEL Calcium Lvl 6.5 mg/dL 8.5 - 10.5 12/19 Result Comment: [place] Critical Result(s) called to Anita Toure at 12/19/2017 07:51 by gp. Read back OK. CHEM PANEL AGAP 14.6 meq/L 10.0 - 12/19 MH 20.0 [place] CHEM PANEL CO2 29 meq/L 24 - 32 12/19 [place] PARATHYROID Ca Ion WB 0.88 1.05 - 12/19 Result PROFILE mMol/L 11.02 Comment: [place] Critical Result(s) called to Anita Reilly at 12/19/2017 08:38 by gp. Read back OK. PARATHYROID Ca Norm WB 0.85 1.05 - 12/19 PROFILE mMol/L 11.02 [place] CHEM PANEL eGFR 4 12/19 Result Comment: The eGFR is calculated using the CKD-EPI formula. In most young, healthy individuals the eGFR will be >90 mL/ min/1.73m2. The eGFR declines with age. An eGFR of 60-89 may be normal in MH mL/min/1. some populations, particularly the elderly, for whom the CKD-EPI formula has not been extensively validated. Use of the eGFR is not recommended in the following populations: [place] 3m2 Individuals with unstable creatinine concentrations, including patients and those with serious co-morbid conditions. Patients with extremes in muscle mass or diet. The data above are obtained from the National Kidney Disease Education Program (NKDEP) which additionally recommends that when the eGFR is used in patients with extremes of body mass index for purposes of drug dosing, the eGFR should be multiplied by the estimated BMI. CHEM PANEL Glucose Lvl 92 mg/dL 70 - 99 12/19 [place] CHEM PANEL Sodium Lvl 138 meq/L 135 - 145 12/19 [place] CHEM PANEL Potassium 3.6 meq/L 3.5 - 5.1 12/19 MH Lvl [place] CHEM PANEL BUN 97 mg/dL 7 - 22 12/19 [place] CHEM PANEL Creatinine 11.80 0.50 - 12/19 MH Lvl mg/dL 1.40 [place] CHEM PANEL Calcium Lvl 6.8 mg/dL 8.5 - 10.5 12/19 Result Comment: [place] Critical Result(s) called to Isabel Monroe at 0623_ by_JJ. Read back OK. CHEM PANEL CO2 27 meq/L 24 - 32 12/19 [place] CHEM PANEL AGAP 18.6 meq/L 10.0 - 12/19 MH 20.0 [place] CHEM PANEL Chloride Lvl 96 meq/L 95 - 109 12/19 [place] CHEM PANEL Magnesium 1.8 mg/dL 1.8 - 2.4 12/19 [place] HEMATOLOGY RDW 14.3 % 11.5 - 12/19 MH 14.5 [place] HEMATOLOGY MCHC 34.5 g/dL 32.0 - 12/19 MH 36.0 [place] HEMATOLOGY MCH 26.8 pg 27.0 - 12/19 MH 31.0 [place] HEMATOLOGY MPV 8.0 fL 7.4 - 10.4 12/19 [place] HEMATOLOGY Platelet 200 K/CMM 133 - 450 12/19 [place] HEMATOLOGY MCV 77.7 fL 80.0 - 12/19 MH 94.0 [place] HEMATOLOGY Hct 24.7 % 42.0 - 12/19 MH 54.0 [place] HEMATOLOGY Hgb 8.5 g/dL 14.0 - 12/19 MH 18.0 [place] HEMATOLOGY RBC 3.17 M/CMM 4.70 - 12/19 MH 6. [place] HEMATOLOGY WBC 6.6 K/CMM 3.7 - 10.4 12/19 [place] HEMATOLOGY Monocytes # 0.7 K/CMM 0.0 - 0.8 12/19 [place] HEMATOLOGY Eosinophils 0.2 K/CMM 0.0 - 0.5 12/19 [place] HEMATOLOGY Microcyte 1+ None Seen 12/19 [place] *ABN* (12/19/17 5:02 AM) HEMATOLOGY Lymphocytes 1.0 K/CMM 1.0 - 5.5 12/19 [place] HEMATOLOGY Basophils 0.6 % 0.0 - 1.0 12/19 [place] HEMATOLOGY Segs-Bands # 4.7 K/CMM 1.5 - 8.1 12/19 [place] HEMATOLOGY Monocytes 10.3 % 2.0 - 12.0 12/19 [place] HEMATOLOGY Eosinophils 2.9 % 0.0 - 4.0 12/19 [place] HEMATOLOGY Lymphocytes 15.3 % 20.0 - 12/19 MH 40.0 [place] HEMATOLOGY Segs 70.9 % 45.0 - 12/19 MH 75.0 [place] PARATHYROID Ca Ion WB 0.88 1.05 - 12/19 Result PROFILE mMol/L 11.02 Comment: [place] Critical Result(s) called to T SANDOZ at 12/19/2017 06:46 by D^2. Read back OK. PARATHYROID Ca Norm WB 0.88 . - 12/19 Result PROFILE mMol/L 11.02 Comment: [place] Critical Result(s) called to T SANDOZ at 12/19/2017 06:46 by D^2. Read back OK. CHEM PANEL Magnesium 1.9 mg/dL 1.8 - 2.4 12/18 Lv [place] CHEM PANEL Phosphorus 8.8 mg/dL 2.5 - 4.5 12/18 [place] HEMATOLOGY Microcyte 1+ None Seen 12/17 [place] *ABN* (12/17/17 4:32 AM) HEMATOLOGY Eosinophils 0.2 K/CMM 0.0 - 0.5 12/17 [place] HEMATOLOGY Monocytes # 0.6 K/CMM 0.0 - 0.8 12/17 [place] HEMATOLOGY Lymphocytes 1.0 K/CMM 1.0 - 5.5 12/17 MH # [place] HEMATOLOGY Segs-Bands # 3.9 K/CMM 1.5 - 8.1 12/17 [place] HEMATOLOGY Basophils 0.6 % 0.0 - 1.0 12/17 [place] HEMATOLOGY Eosinophils 2.7 % 0.0 - 4.0 12/17 [place] HEMATOLOGY Monocytes 10.4 % 2.0 - 12.0 12/17 [place] HEMATOLOGY Lymphocytes 18.1 % 20.0 - 12/17 MH 40.0 [place] HEMATOLOGY Segs 68.2 % 45.0 - 12/17 MH 75.0 [place] HEMATOLOGY Platelet 213 K/CMM 133 - 450 12/17 [place] HEMATOLOGY RDW 14.3 % 11.5 - 12/17 MH 14.5 [place] HEMATOLOGY MPV 8.0 fL 7.4 - 10.4 12/17 [place] HEMATOLOGY MCH 27.4 pg 27.0 - 12/17 MH 31.0 [place] HEMATOLOGY MCV 78.6 fL 80.0 - 12/17 MH 94.0 [place] HEMATOLOGY Hct 22.8 % 42.0 - 12/17 MH 54.0 [place] HEMATOLOGY MCHC 34.9 g/dL 32.0 - 12/17 MH 36.0 [place] HEMATOLOGY Hgb 7.9 g/dL 14.0 - 12/17 18.0 [place] HEMATOLOGY RBC 2.90 M/CMM 4.70 - 12/17 MH 6.10 [place] HEMATOLOGY WBC 5.7 K/CMM 3.7 - 10.4 12/17 [place] HEMATOLOGY Sed Rate 80 mm/h 0 - 15 12/17 [place] IMMUNOLOGY Tot Prot 7.0 g/dL 6.4 - 8.4 12/17 (SPE) [place] IMMUNOLOGY SPE Interp Total 12/17 protein [place] and serum albumin are within normal limits. Serum capillary protein electropho resis shows an elevated alpha-1 globulin fraction. No monoclonal proteins are identified . The electropho retic pattern is consistent with the acute phase of an inflammato ry process. Clinical correlatio n is required.I nterpretat ion performed at [facility]. IMMUNOLOGY Gamma Glob 1.13 g/dL 0.71 - 03 MH 1.57 /2017 [place] IMMUNOLOGY Beta Glob 0.83 g/dL 0.50 - 03/ MH 1.15 [place] IMMUNOLOGY Alpha 2 Glob 0.85 g/dL 0.45 - 03/ MH 1.00 [place] IMMUNOLOGY Alpha 1 Glob 0.48 g/dL 0.18 - 03/ MH 0.41 [place] IMMUNOLOGY Albumin 3.72 g/dL 3.57 - 03 MH (SPE) 5.55 /2017 [place] IMMUNOLOGY Beta % 11.8 REL % 7.8 - 13.7 12/17 /2017 [place] IMMUNOLOGY Gamma % 16.2 REL % 11.1 - 03/ MH 18.7 /2017 [place] IMMUNOLOGY Alpha 2 % 12.1 REL % 7.0 - 11.9 12/17 [place] IMMUNOLOGY Alpha 1 % 6.8 REL % 2.8 - 4.9 12/17 [place] IMMUNOLOGY Albumin % 53.1 REL % 55.8 - 12/17 MH 66.1 [place] IMMUNOLOGY C3 91 mg/dL 88 - 201 12/17 Complement /2017 [place] IMMUNOLOGY MIKE Ser See 12/17 Pattern interpreta /2017 [place] tion. IMMUNOLOGY MIKE Ser Serum 12/17 Interp immunofixa /2017 [place] tion electropho resis reveals a polyclonal pattern of immunoglob ulins. No monoclonal proteins are identified .Interpret ation performed at [facility]. IMMUNOLOGY C4 29 mg/dL 16 - 47 12/17 Complement /2017 [place] IMMUNOLOGY P-ANCA Negative Negative 12/17 [place] (12/17/17 4:32 AM) IMMUNOLOGY C-ANCA Negative Negative 12/17 [place] (12/17/17 4:32 AM) IMMUNOLOGY Hep Bs Ag Negative Negative 12/17 [place] *NA* (12/17/17 4:32 AM) IMMUNOLOGY Hep Bs Ab null <=7.4 12/17 mIU/mL /2017 [place] IMMUNOLOGY Hep B Core Negative Negative 12/17 Ab [place] *NA* (12/17/17 4:32 AM) IMMUNOLOGY DNA Ab (DS) Negative Negative 12/17 [place] (12/17/17 4:32 AM) IMMUNOLOGY [place]/Lambda 3.42 Ratio 0.26 - 12/17 Free Light 1.65 [place] Chains Ratio IMMUNOLOGY [place] Free 203.40 3.30 - 12/17 Light Chains mg/L 19.40 [place] IMMUNOLOGY Lambda Free 59.41 mg/L 5.70 - 12/17 Light Chains 26.30 [place] IMMUNOLOGY CHRISTINA Negative Negative 12/17 [place] (12/17/17 4:32 AM) IMMUNOLOGY RF Qnt null 0 - 20 12/17 [place] ANEMIA % [place] Fe 12 % 12 - 57 12/15 [place] ANEMIA UIBC 238 ug/dl 110 - 370 12/15 [place] ANEMIA TIBC 272 ug/dl 228 - 428 12/15 [place] ANEMIA Iron 34 ug/dl 45 - 160 12/15 [place] ANEMIA Ferritin Lvl 266 ng/mL 22 - 275 12/15 [place] ANEMIA Vitamin B12 635 pg/mL 254 - 1320 12/15 STUDY Lvl [place] ANEMIA Folate Lvl 19.0 ng/mL >=3.0 12/15 STUDY ng/mL [place] CHEM PANEL Vitamin D, 12.3 ng/mL 30.0 - 12/15 25-OH, Total 100.0 [place] PARATHYROID PTH Intact 396.7 11.1 - 12/15 PROFILE pg/mL 79.5 [place] HEMATOLOGY Retic Auto 1.5 % 0.5 - 1.5 12/15 [place] CARDIAC Troponin-I null 0.00 - 12/15 ENZYMES 0.40 [place] CARDIAC Total CK 380 unit/L 12 - 191 12/15 ENZYMES [place] CARDIAC CK MB 5.4 ng/mL 0.5 - 3.6 12/15 ENZYMES [place] CARDIAC CK MB Index 1.4 0.0 - 2.5 12/15 ENZYMES [place] CHEM PANEL Phosphorus >13.5 2.5 - 4.5 12/15 mg/dL [place] CHEM PANEL Bili Total 0.4 mg/dL 0.2 - 1.3 12/15 [place] CHEM PANEL ALT 14 unit/L 0 - 65 12/15 [place] CHEM PANEL AST 17 unit/L 0 - 37 12/15 [place] CHEM PANEL Alk Phos 115 unit/L 39 - 136 12/15 [place] CHEM PANEL Albumin Lvl 3.4 g/dL 3.5 - 5.0 12/15 [place] CHEM PANEL Total 7.4 g/dL 6.4 - 8.4 12/15 Protein [place] CHEM PANEL B/C Ratio 9 6 - 25 12/15 [place] CHEM PANEL A/G Ratio 0.8 0.7 - 1.6 12/15 [place] CHEM PANEL Globulin 4.0 g/dL 2.7 - 4.2 12/15 [facility] CARDIAC Troponin-I null 0.00 - 12/15 [facility] 0.40 /2017 [facility] Total CK 350 unit/L 12 - 191 12/15 [facility] C[facility] CK MB 4.8 ng/mL 0.5 - 3.6 12/15 [facility] CK MB Index 1.4 0.0 - 2.5 12/15 [facility] URINE CHEM U Potassium 20.0 meq/L 12/15 [facility] URINE CHEM U Sodium 31 meq/L 12/15 [facility] UR[facility] CHEM U Chloride 22 meq/L 12/15 [facility] CHEM U Protein 246.9 12/15 mg/dL [facility] CHEM U Prot/Creat 4.35 12/15 [facility] URINE CHEM U Creatinine 56.70 12/15 mg/dL [facility] CHEM U Osmolality 223 300 - 800 12/15 mOsm/kg [facility] URINE CHEM U Eos None Seen None Seen 12/15 [facility] (12/15/17 8:38 AM) URINE AND Micro? Performed 12/15 [facility] *NA* (12/15/17 8:33 AM) URINE AND UA <=1.0 0.1 - 1.0 12/15 [facility] Urobilinogen mg/dL [facility] URINE AND UA Glucose 50 mg/dL 12/15 [facility] URINE AND UA Color STRAW 12/15 [facility] URINE AND UA Nitrite Negative Negative 12/15 [facility] (12/15/17 8:33 AM) URINE AND UA Blood Small Negative 12/15 [facility] *ABN* (12/15/17 8:33 AM) URINE AND UA Leuk Est Negative Negative 12/15 [facility] (12/15/17 8:33 AM) URINE AND UA WBC 3 /HPF 0 - 5 12/15 [facility] URINE AND UA Sq Epi Occasional Few /LPF 12/15 [facility] /LPF [facility] URINE AND UA Mucus Few /LPF None Seen 12/15 [facility] /LPF [facility] URINE AND UA RBC 1 /HPF 0 - 2 12/15 [facility] URINE AND UA Turbidity Slight Clear 12/15 [facility] *ABN* (12/15/17 8:33 AM) URINE AND UA Spec Grav 1.008 <=1.030 12/15 [facility] URINE AND UA Ketones Negative Negative 12/15 [facility] mg/dL mg/dL [facility] URINE AND UA pH 5.0 5.0 - 8.0 12/15 [facility] URINE AND UA Bili Negative Negative 12/15 [facility] *NA* (12/15/17 8:33 AM) URINE AND UA Protein 100 mg/dL Negative 12/15 [facility] mg/dL /2017 [facility] CARDIAC CK MB Index 1.3 0.0 - 2.5 12/15 [facility] proBNP 4088 pg/mL 0 - 125 12/15 [facility] Total CK 357 unit/L 12 - 191 12/15 [facility] C[facility]IAC CK MB 4.8 ng/mL 0.5 - 3.6 12/15 [facility] Troponin-I null 0.00 - 12/15 [facility] 0.40 [facility] CHEM PANEL A/G Ratio 0.8 0.7 - 1.6 12/15 [facility] CHEM PANEL Total 7.0 g/dL 6.4 - 8.4 12/15 Protein [facility] CHEM PANEL Globulin 3.9 g/dL 2.7 - 4.2 12/15 [facility] CHEM PANEL Albumin Lvl 3.1 g/dL 3.5 - 5.0 12/15 [facility] CHEM PANEL Bili Total 0.4 mg/dL 0.2 - 1.3 12/15 [place] CHEM PANEL Alk Phos 108 unit/L 39 - 136 12/15 [place] CHEM PANEL ALT 15 unit/L 0 - 65 12/15 [place] CHEM PANEL AST 13 unit/L 0 - 37 12/15 [place] CHEM PANEL B/C Ratio 9 6 - 25 12/15 [place] HEMATOLOGY D-Dimer 1.17 ug/mL 12/15 FE [place] Retroperito Retroperiton Clinical Indication: - Renal failure; 12/15 [facility] - [place] Complete US US Comparison: None Read by: Ochoa Pereira MD Dictated Date/time: 12/15/17 09:57 TECHNIQUE: Electronically Signed by: Ochoa Pereira MD 12/15/17 09:59 FINAL REPORT Multiple longitudinal and transverse real time sonographic images of the kidneys and urinary bladder are obtained. FINDINGS: KIDNEY: The right kidney measures 10.8 cm. The left kidney measures 8.4 cm. Moderate atrophy of the left kidney is noted. Both kidneys demonstrate increased cortical echogenicity. Right kidney upper pole 1.9 cm anechoic simple cyst is seen. Adjacent 1.0 cm simple cyst is noted. No hydronephrosis, calculus, or mass is appreciated. BLADDER: Partial distension of the urinary bladder with anechoic fluid is noted. No wall thickening or mass is seen. Visualized portions of the abdominal aorta and IVC are unremarkable. IMPRESSION: 1. Moderate atrophy of the left kidney. 2. Both kidneys with increased cortical echogenicity, indicating medical renal disease. 3. Right kidney upper pole simple cyst. SL: [id number] Chest 2 Chest 2 Clinical Indication: - Subjective dyspnea. 12/15 - [facility] DX views DX - [place] Comparison: None. Read by: Chacorta Chou MD Dictated Date/time: 12/15/17 06:56 Electronically Signed by: Chacorta Chou MD 12/15/17 06:57 FINAL REPORT Technique: Frontal and lateral views of the chest. Findings: Mild pulmonary vascular congestion. Mild more focal interstitial prominence at the bases likely due to atelectasis. No pleural effusions. The cardiac silhouette is enlarged. IMPRESSION: Cardiomegaly and pulmonary vascular congestion. SL: [id number] Vital Signs Vital Sign Value Date Comments Source Respitory Rate 18 07/24/[address] [facility] Systolic (mm Hg) 168 07/24/[address] [facility] Diastolic (mm Hg) 85 07/24/[address] [facility] Heart Rate 82 07/24/[address] [facility] Temperature Oral (F) 98.2 F 07/24/[address] [facility] Temperature Oral (F) 98.3 F 07/24/[address] [facility] Heart Rate 82 07/24/[address] [facility] Respitory Rate 18 07/24/[address] [facility] Systolic (mm Hg) 175 07/24/[address] [facility] Diastolic (mm Hg) 87 07/24/[address] [facility] Systolic (mm Hg) 179 07/24/[address] [facility] Diastolic (mm Hg) 97 07/24/[address] [facility] Temperature Oral (F) 98.2 F 07/24/[address] [facility] Respitory Rate 18 07/24/[address] [facility] Heart Rate 81 07/24/[address] [facility] Weight 102.273 07/22/[address] [facility] BMI Calculated 35.31 07/22/[address] [facility] Height 170.18 cm 07/22/[address] [facility] BMI Calculated 33.39 07/22/[address] [facility] Height 170.18 cm 07/22/[address] [facility] Weight 96.7 07/22/[address] [facility] Respitory Rate 14 07/21/[address] [facility] Temperature Oral (F) 98.6 F 07/21/[address] [facility] Systolic (mm Hg) 158 07/21/[address] [facility] Diastolic (mm Hg) 82 07/21/[address] [facility] Respitory Rate 14 07/20/[address] [facility] Systolic (mm Hg) 131 07/20/[address] [facility] Diastolic (mm Hg) 78 07/20/[address] [facility] Systolic (mm Hg) 153 07/20/[address] [facility] Diastolic (mm Hg) 75 07/20/[address] [facility] Respitory Rate 18 07/20/[address] [facility] Heart Rate 67 07/20/[address] [facility] Temperature Oral (F) 97.7 F 07/20/[address] [facility] Height 170.18 cm 07/20/[address] [facility] BMI Calculated 32.33 07/20/[address] [facility] Weight 93.636 07/20/[address] [facility] BMI Calculated 31.11 05/23/2018 [facility] Weight 89.9 05/23/2018 [facility] Respitory Rate 16 05/23/2018 [facility] Heart Rate 76 05/23/2018 [facility] Height 170 cm 05/23/2018 [facility] Systolic (mm Hg) 127 05/23/2018 [facility] Diastolic (mm Hg) 76 05/23/2018 [facility] Systolic (mm Hg) 161 04/15/[address] [facility] Diastolic (mm Hg) 88 04/15/[address] [facility] Respitory Rate 16 04/15/[address] [facility] Heart Rate 64 04/15/[address] [facility] Systolic (mm Hg) 165 04/15/[address] [facility] Diastolic (mm Hg) 88 04/15/[address] [facility] Temperature Oral (F) 98.2 F 04/15/[address] [facility] Heart Rate 67 04/15/[address] [facility] Temperature Oral (F) 98.0 F 04/15/[address] [facility] Systolic (mm Hg) 159 04/15/[address] [facility] Diastolic (mm Hg) 86 04/15/[address] [facility] Respitory Rate 18 04/15/[address] [facility] Temperature Oral (F) 98.2 F 04/15/[address] [facility] Heart Rate 69 04/15/[address] [facility] Respitory Rate 18 04/15/[address] [facility] Weight 87.784 04/15/[address] [facility] Weight 74.091 04/14/[address] [facility] Height 172.72 cm 04/14/[address] [facility] BMI Calculated 24.84 04/14/[address] [facility] Systolic (mm Hg) 137 03/20/[address] [facility] Diastolic (mm Hg) 72 03/20/[address] [facility] Respitory Rate 16 03/20/[address] [facility] Heart Rate 82 03/20/[address] [facility] Temperature Oral (F) 98.4 F 03/20/[address] [facility] Systolic (mm Hg) 144 03/20/[address] [facility] Diastolic (mm Hg) 76 03/20/[address] [facility] Respitory Rate 16 03/20/[address] [facility] Heart Rate 86 03/20/[address] [facility] Temperature Oral (F) 98.3 F 03/20/[address] [facility] Respitory Rate 16 03/20/[address] [facility] Temperature Oral (F) 98.3 F 03/20/[address] [facility] Heart Rate 87 03/20/[address] [facility] Systolic (mm Hg) 146 03/20/[address] [facility] Diastolic (mm Hg) 80 03/20/[address] [facility] BMI Calculated 35.75 03/17/[address] [facility] Weight 100.455 03/17/[address] [facility] Height 167.64 cm 03/17/[address] [facility] Weight 98.182 03/17/[address] [facility] Temperature Oral (F) 98.2 F 01/23/[address] [facility] Respitory Rate 18 01/23/[address] [facility] Systolic (mm Hg) 133 01/23/[address] [facility] Diastolic (mm Hg) 90 01/23/[address] [facility] Respitory Rate 18 01/23/[address] [facility] Heart Rate 67 01/23/[address] [facility] Systolic (mm Hg) 157 01/23/[address] [facility] Diastolic (mm Hg) 83 01/23/[address] [facility] Temperature Oral (F) 98.2 F 01/23/[address] [facility] Respitory Rate 17 01/23/[address] [facility] Systolic (mm Hg) 148 01/23/[address] [facility] Diastolic (mm Hg) 76 01/23/[address] [facility] Heart Rate 75 01/23/[address] [facility] BMI Calculated 36.17 01/23/[address] [facility] Height 165.1 cm 01/23/[address] [facility] Weight 98.6 01/23/[address] [facility] Systolic (mm Hg) 151 12/20/[address] [facility] Diastolic (mm Hg) 80 12/20/[address] [facility] Temperature Oral (F) 98.0 F 12/20/[address] [facility] Respitory Rate 18 12/20/[address] [facility] Heart Rate 77 12/20/[address] [facility] Systolic (mm Hg) 152 12/20/[address] [facility] Diastolic (mm Hg) 84 12/20/[address] [facility] Temperature Oral (F) 98 F 12/20/[address] [facility] Heart Rate 69 12/20/[address] [facility] Respitory Rate 18 12/20/[address] [facility] Temperature Oral (F) 97.6 F 12/20/[address] [facility] Heart Rate 70 12/20/[address] [facility] Systolic (mm Hg) 150 12/20/[address] [facility] Diastolic (mm Hg) 71 12/20/[address] [facility] Respitory Rate 18 12/20/[address] [facility] BMI Calculated 37.67 12/15/[address] [facility] Weight 109.091 12/15/[address] [facility] Height 170.18 cm 12/15/[address] [facility] Height 170.18 cm 12/15/[address] [facility] Weight 90.909 12/15/[address] [facility] Encounters Location Location Encounter Encounter Reason Attending ADM DC Status Source Details Type Number For Provider Date Date [facility] [id number] Redd Moses 12/15 12/20 Marlo 0 [facility] [id number] Osvaldo 01/22 01/23 [place] 1 Tawny Jr [facility] Inpatient [id number] [place] 03/17 03/20 Marlo 2 [place] /2017 [facility] Memorial Observation [id number] David 04/14 04/15 Marlo 3 Ajibade /2017 [facility] Transplant OP [id number] Joanne 05/23 06/22 [facility] Transplant 0 De Golovine [facility] [id number] Cecy 07/20 07/21 [place] 4 Vishnyakova /2017 [facility] Inpatient [id number] Roger 07/22 07/24 Marlo 5 Dhamotharan [facility] Procedures Procedure Code Date Perfomer Comments Source Knee maneuver [id number] [facility] Shoulder [id number] [facility] manipulation Dialysis access [id number] [facility] Dialysis access [id number] [facility] Knee maneuver [id number] [facility] Shoulder [id number] [facility]
--- OUTSIDE RECORDS SUMMARY | 2019-02-21 15:01 | XMS REPORT | Summary of Care ---
:1960 Author Organization [facility] Address [address] [place] [address]- Encounter HQ Jose Angel(FIN) [id number] Date(s): 07/20/18 - 07/20/18 [facility] [id number] [place] [address] [phone] Encounter Diagnosis Acute hyperkalemia (Discharge Diagnosis) - 07/20/18 Complication of intraperitoneal dialysis catheter (Discharge Diagnosis) - Unspecified complication of internal prosthetic device, implant and graft, initial encounter (Final) - 07/25/18 Hyperkalemia (Final) - Type 2 diabetes mellitus with diabetic chronic kidney disease (Final) - Hypertensive chronic kidney disease with stage 5 chronic kidney disease or end stage renal disease (Final) - End stage renal disease (Final) - Dependence on renal dialysis (Final) - Anxiety disorder, unspecified (Final) - Sleep apnea, unspecified (Final) - 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 (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) - Pericardial effusion (noninflammatory) (Final) - Nausea (Final) - Other symptoms and signs concerning food and fluid intake (Final) - Discharge Disposition: Home or Self Care Attending Physician: Cecy Arias MD Vital Signs Most recent to oldest 1 2 3 [Reference Range]: Height 170.18 cm (07/20/18 5:37 PM) Temperature Oral [96.4-99.1 98.6 DegF 97.7 DegF DegF] (07/20/18 9:35 PM) (07/20/18 5:37 PM) Blood Pressure [90-140/60-90 158/82 mmHg 131/78 mmHg 153/75 mmHg mmHg] *HI* (07/20/18 6:36 PM) *HI* (07/20/18 9:35 PM) (07/20/18 5:37 PM) Respiratory Rate [14-20 14 BRMIN 14 BRMIN 18 BRMIN BRMIN] (07/20/18 9:35 PM) (07/20/18 6:36 PM) (07/20/18 5:37 PM) Peripheral Pulse Rate 67 bpm [60-100 bpm] (07/20/18 5:37 PM) Weight 93.636 kg (07/20/18 5:37 PM) Body Mass Index 32.33 m2 (07/20/18 5:37 PM) Problem List Condition Effective Dates Status Health Status Informant Anxiety(Confirmed) Resolved Diabetes(Confirmed) Resolved ESRD (end stage renal disease) on Active dialysis(Confirmed) Hypertension(Confirmed) Resolved Pericardial effusion(Confirmed) Active Simple obesity(Confirmed) Active Sleep apnea(Confirmed) Resolved Allergies, Adverse Reactions, Alerts No Known Medication Allergies Medications Kayexalate 15 gm, 60 mL, Route: PO, Drug form: SUSP, ONCE, Dosing Weight 93.636, kg, Priority: STAT, Start date: 07/20/18 18:39:00 CDT, Stop date: 07/20/18 18:39:00 CDT Notes: (sodium polystyrene sulfonate 15 gm/60 ml CANDACE) Shake well before use. (Same as: Kayexalate, SPS) Start Date: 07/20/18 Stop Date: 07/20/18 Status: CompletedKayexalate oral and rectal powder 15 gm, PO, Daily, X 2 day, # 30 gm, 0 Refill(s) Start Date: 07/20/18 Stop Date: 07/22/18 Status: Completedlactulose 10 g oral powder =1 Pack, PO, Daily, X 2 day, # 30 ea, 0 Refill(s) Start Date: 07/20/18 Stop Date: 07/22/18 Status: Completed Results Most recent to oldest [Reference Range]: 1 Neutrophils # [1.5-8.1 K/CMM] 4.0 K/CMM (07/20/18 5:52 PM) Lymphocytes # [1.0-5.5 K/CMM] 0.8 K/CMM *LOW* (07/20/18 5:52 PM) Monocytes # [0.0-0.8 K/CMM] 0.4 K/CMM (07/20/18 5:52 PM) Eosinophils # [0.0-0.5 K/CMM] 0.2 K/CMM (07/20/18 5:52 PM) Basophils # [0.0-0.2 K/CMM] 0.1 K/CMM (07/20/18 5:52 PM) eGFR 3 mL/min/1.73m2 1 *NA* (07/20/18 5:52 PM) A/G Ratio [0.7-1.6] 0.9 (07/20/18 5:52 PM) Albumin Lvl [3.5-5.0 g/dL] 3.3 g/dL *LOW* (07/20/18 5:52 PM) Alk Phos [39-136 unit/L] 70 unit/L (07/20/18 5:52 PM) ALT [0-65 unit/L] 19 unit/L (07/20/18 5:52 PM) AGAP [10.0-20.0 mEq/L] 19.2 mEq/L (07/20/18 5:52 PM) AST [0-37 unit/L] 10 unit/L (07/20/18 5:52 PM) B/C Ratio [6-25] 5 *LOW* (07/20/18 5:52 PM) Basophils [0.0-1.0 %] 1.0 % (07/20/18 5:52 PM) BUN [7-22 mg/dL] 86 mg/dL *HI* (07/20/18 5:52 PM) Calcium Lvl [8.5-10.5 mg/dL] 8.1 mg/dL *LOW* (07/20/18 5:52 PM) Chloride Lvl [95-109 mEq/L] 97 mEq/L (07/20/18 5:52 PM) CO2 [24-32 mEq/L] 24 mEq/L (07/20/18 5:52 PM) Creatinine Lvl [0.50-1.40 mg/dL] 17.30 mg/dL *HI* (07/20/18 5:52 PM) Eosinophils [0.0-4.0 %] 2.8 % (07/20/18 5:52 PM) Globulin [2.7-4.2 g/dL] 3.5 g/dL (07/20/18 5:52 PM) Glucose Lvl [70-99 mg/dL] 98 mg/dL (07/20/18 5:52 PM) Hct [42.0-54.0 %] 26.1 % *LOW* (07/20/18 5:52 PM) Hgb [14.0-18.0 g/dL] 9.2 g/dL *LOW* (07/20/18 5:52 PM) Potassium Lvl [3.5-5.1 mEq/L] 5.2 mEq/L *HI* (07/20/18 5:52 PM) Lymphocytes [20.0-40.0 %] 15.5 % *LOW* (07/20/18 5:52 PM) MCH [27.0-31.0 pg] 28.8 pg (07/20/18 5:52 PM) MCHC [32.0-36.0 g/dL] 35.4 g/dL (07/20/18 5:52 PM) MCV [80.0-94.0 fL] 81.4 fL (07/20/18 5:52 PM) Monocytes [2.0-12.0 %] 6.7 % (07/20/18 5:52 PM) MPV [7.4-10.4 fL] 6.8 fL *LOW* (07/20/18 5:52 PM) Sodium Lvl [135-145 mEq/L] 135 mEq/L (07/20/18 5:52 PM) Platelet [133-450 K/CMM] 184 K/CMM (07/20/18 5:52 PM) Segs [45.0-75.0 %] 74.0 % (07/20/18 5:52 PM) Total Protein [6.4-8.4 g/dL] 6.8 g/dL (07/20/18 5:52 PM) RBC [4.70-6.10 M/CMM] 3.20 M/CMM *LOW* (07/20/18 5:52 PM) RDW [11.5-14.5 %] 15.1 % *HI* (07/20/18 5:52 PM) Bili Total [0.2-1.3 mg/dL] 0.4 mg/dL (07/20/18 5:52 PM) WBC [3.7-10.4 K/CMM] 5.4 K/CMM (07/20/18 5:52 PM) 1Result Comment: The eGFR is calculated using the CKD-EPI formula. In most young , healthy individualsthe eGFR will be >90 mL/min/1.73m2. The eGFR declines with age. An eGFR of 60-89 may be normal insome populations, particularly the elderly, for whom the CKD-EPI formula has not been extensively validated. Use of the eGFR is not recommended in the following populations: Individuals with unstable creatinine concentrations, including patients and those with serious co-morbid conditions. Patients with extremes in muscle mass or diet. The data above are obtained from the National Kidney Disease Education Program ( NKDEP) which additionally recommends that when the eGFR is used in patients with extremes of body mass index for purposesof drug dosing, the eGFR should be multiplied by the estimated BMI. Immunizations Given and Recorded Vaccine Date Status Refusal Reason pneumococcal 13-valent vaccine 03/20/18 Given Procedures Procedure Date Related Diagnosis Body Site Status Dialysis access site care Completed Knee maneuver Completed Shoulder manipulation Completed Social History Social History Type Response Substance Abuse Use: None. Exercise Exercise frequency: Daily. Exercise type: Walking. Employment/School Status: Employed. Alcohol Past, Frequency: 1-2 times per week. Smoking Status Never smoker; Previous treatment: None; Ready to change: No; Concerns about tobacco use in household: No; Exposure to Tobacco Smoke None; Cigarette Smoking Last 365 Days No; Reg Smoking Cessation Counseling No entered on: 07/22/18 Assessment and Plan No data available for this section
--- OUTSIDE RECORDS SUMMARY | 2019-02-21 15:02 | XMS REPORT | Summary of Care ---
:1960 Author Organization [facility] Address [address], [place] [address]- Encounter HQ Jose Angel(FIN) [phone] Date(s): 05/23/18 - 06/21/[address] [place] [phone]- [phone] Encounter Diagnosis Encounter for other preprocedural examination (Final) - 06/26/18 End stage renal disease (Final) - Dependence on renal dialysis (Final) - Pericardial effusion (noninflammatory) (Final) - Type 2 diabetes mellitus without complications (Final) - Discharge Disposition: Home or Self Care Attending Physician: Joanne Aldrich MD Referring Physician: Joanne Aldrich MD Vital Signs Most recent to oldest [Reference Range]: 1 Height 170 cm (05/23/18 10:20 AM) Blood Pressure [90-140/60-90 mmHg] 127/76 mmHg (05/23/18 10:20 AM) Respiratory Rate [14-20 BRMIN] 16 BRMIN (05/23/18 10:20 AM) Peripheral Pulse Rate [60-100 bpm] 76 bpm (05/23/18 10:20 AM) Weight 89.9 kg (05/23/18 10:20 AM) Body Mass Index 31.11 m2 (05/23/18 10:20 AM) Problem List Condition Effective Dates Status Health Status Informant Anxiety(Confirmed) Resolved Diabetes(Confirmed) Resolved ESRD (end stage renal disease) on Active dialysis(Confirmed) Hypertension(Confirmed) Resolved Pericardial effusion(Confirmed) Active Simple obesity(Confirmed) Active Sleep apnea(Confirmed) Resolved Allergies, Adverse Reactions, Alerts Substance Reaction Severity Status NKDA Active Medications amLODIPine 10 mg oral tablet 10 mg=1 tab, PO, Daily, 0 Refill(s) Start Date: 05/22/18 Status: OrderedLORazepam 1 mg oral tablet 1 mg=1 tab, PO, PRN, 0 Refill(s) Start Date: 05/22/18 Status: OrderedRena-Conor oral tablet 1 tab, PO, Daily, 0 Refill(s) Start Date: 05/22/18 Status: Orderedzolpidem 10 mg oral tablet 10 mg=1 tab, PO, Bedtime, 0 Refill(s) Start Date: 05/22/18 Status: Ordered Results BLOOD BANK RESULTS Most recent to oldest [Reference Range]: 1 ABO/RH Confirm O POS *Unknown* (05/23/18 10:20 AM) ABORH O POS *Unknown* (05/23/18 9:55 AM) ELECTROLYTES Most recent to oldest [Reference Range]: 1 Sodium Lvl [135-145 mEq/L] 136 mEq/L (05/23/18 9:55 AM) Potassium Lvl [3.5-5.1 mEq/L] 3.8 mEq/L (05/23/18 9:55 AM) Chloride Lvl [95-109 mEq/L] 97 mEq/L (05/23/18 9:55 AM) CO2 [24-32 mEq/L] 26 mEq/L (05/23/18 9:55 AM) AGAP [10.0-20.0 mEq/L] 16.8 mEq/L (05/23/18 9:55 AM) CHEM PANEL Most recent to oldest [Reference Range]: 1 Creatinine Lvl [0.50-1.40 mg/dL] 8.22 mg/dL *HI* (05/23/18 9:55 AM) eGFR 7 mL/min/1.73m2 1 *NA* (05/23/18 9:55 AM) BUN [7-22 mg/dL] 59 mg/dL *HI* (05/23/18 9:55 AM) B/C Ratio [6-25] 7 (05/23/18 9:55 AM) Glucose Lvl [70-99 mg/dL] 98 mg/dL (05/23/18 9:55 AM) Uric Acid [3.8-8.0 mg/dL] 3.5 mg/dL *LOW* (05/23/18 9:55 AM) Total Protein [6.4-8.4 g/dL] 8.1 g/dL (05/23/18 9:55 AM) Albumin Lvl [3.5-5.0 g/dL] 4.3 g/dL (05/23/18 9:55 AM) Globulin [2.7-4.2 g/dL] 3.8 g/dL (05/23/18 9:55 AM) A/G Ratio [0.7-1.6] 1.1 (05/23/18 9:55 AM) Calcium Lvl [8.5-10.5 mg/dL] 8.8 mg/dL (05/23/18 9:55 AM) Phosphorus [2.5-4.5 mg/dL] 8.0 mg/dL *HI* (05/23/18 9:55 AM) Magnesium Lvl [1.8-2.4 mg/dL] 2.5 mg/dL *HI* (05/23/18 9:55 AM) ALT [0-65 unit/L] 22 unit/L (05/23/18 9:55 AM) AST [0-37 unit/L] 12 unit/L (05/23/18 9:55 AM) Alk Phos [39-136 unit/L] 80 unit/L (05/23/18 9:55 AM) Bili Total [0.2-1.3 mg/dL] 0.4 mg/dL (05/23/18 9:55 AM) Vitamin D, 25-OH, Total [30.0-100.0 ng/mL] 26.3 ng/mL *LOW* (05/23/18 9:55 AM) 1Result Comment: The eGFR is calculated using [...] eGFR should be multiplied by the estimated BMI.LIPIDS Most recent to oldest [Reference Range]: 1 CHD Risk [4.00-7.30] 2.44 *LOW* (05/23/18 9:55 AM) Chol [<=199 mg/dL] 176 mg/dL (05/23/18 9:55 AM) Trig [<=149 mg/dL] 152 mg/dL *HI* (05/23/18 9:55 AM) HDL [>=61 mg/dL] 72 mg/dL (05/23/18 9:55 AM) LDL (Calculated) [<=99 mg/dL] 74 mg/dL (05/23/18 9:55 AM) VLDL 30 *NA* (05/23/18 9:55 AM) SPECIAL CHEMISTRY Most recent to oldest [Reference Range]: 1 Hgb A1C [<=5.6 %] 4.9 % (05/23/18 9:55 AM) PSA [0.00-4.00 ng/mL] 0.46 ng/mL (05/23/18 9:55 AM) Nicotine Lvl None Detected 1 *NA* (05/23/18 9:55 AM) Cotinine Lvl None Detected 2 *NA* (05/23/18 9:55 AM) 1Result Comment: Nicotine levels greater than 2.0 are consistent with the use of tobacco or tobacco cessation products.2Result Comment: Cotinine levels greater than 20.0 are consistent with the use of tobacco or tobacco cessation products. Performed At: [facility] [id number] Gilmar Gómez MD Ph:[phone] STUDY Most recent to oldest [Reference Range]: 1 Iron [45-160 ug/dl] 97 ug/dl (05/23/18 9:55 AM) Ferritin Lvl [22-275 ng/mL] 292 ng/mL *HI* (05/23/18 9:55 AM) % Satur Fe [12-57 %] 35 % (05/23/18 9:55 AM) UIBC [110-370 ug/dl] 179 ug/dl (05/23/18 9:55 AM) TIBC [228-428 ug/dl] 276 ug/dl (05/23/18 9:55 AM) PARATHYROID PROFILE Most recent to oldest [Reference Range]: 1 PTH Intact [18.4-80.1 pg/mL] 286.0 pg/mL *HI* (05/23/18 9:55 AM) DRUG SCREEN Most recent to oldest [Reference Range]: 1 Amph Scr [Negative] Negative (05/23/18 9:55 AM) Rosa M Scr [Negative] Negative (05/23/18 9:55 AM) Benzodiaz Scr [Negative] Positive *ABN* (05/23/18 9:55 AM) Benzodiaz Qnt See Note 1 (05/23/18 9:55 AM) Cannab Scr [Negative] Negative (05/23/18 9:55 AM) Cocaine Scr [Negative] Negative (05/23/18 9:55 AM) Methadone Scr [Negative] Negative (05/23/18 9:55 AM) Opiate Scr [Negative] Positive *ABN* (05/23/18 9:55 AM) Opiate Qnt See Note 2 (05/23/18 9:55 AM) Phencyclidine Scr [Negative] Negative (05/23/18 9:55 AM) 6-Acetylmor Scr [Negative] Negative (05/23/18 9:55 AM) Cutoff Values See Note (05/23/18 9:55 AM) 1Result Comment: Benzodiazepines alprazolam Positive 27 ng/[id number] Comment: Opiates oxycodone Positive 12 ng/mLURINE CHEM Most recent to oldest [Reference Range]: 1 U Microalb 2940.0 mg/L *NA* (05/23/18 10:20 AM) U Creatinine 55.00 mg/dL *NA* (05/23/18 10:20 AM) U Protein 363.8 mg/dL *NA* (05/23/18 10:20 AM) U Prot/Creat 6.61 *NA* (05/23/18 10:20 AM) URINE AND STOOL Most recent to oldest [Reference Range]: 1 UA Turbidity [Clear] Slight *ABN* (05/23/18 10:20 AM) UA Color [Yellow] Yellow *NA* (05/23/18 10:20 AM) UA pH [5.0-8.0] 6.5 (05/23/18 10:20 AM) UA Spec Grav [<=1.030] 1.008 (05/23/18 10:20 AM) UA Glucose 100mg/dL *NA* (05/23/18 10:20 AM) UA Blood [Negative] Trace *ABN* (05/23/18 10:20 AM) UA Ketones [Negative mg/dL] Negative mg/dL *NA* (05/23/18 10:20 AM) UA Protein [Negative mg/dL] >=300 mg/dL *ABN* (05/23/18 10:20 AM) UA Urobilinogen [0.1-1.0 mg/dL] <=1.0 mg/dL *NA* (05/23/18 10:20 AM) UA Bili [Negative] Negative *NA* (05/23/18 10:20 AM) UA Leuk Est [Negative] Small *ABN* (05/23/18 10:20 AM) UA Nitrite [Negative] Negative (05/23/18 10:20 AM) UA WBC [0-5 /HPF] 9 /HPF *HI* (05/23/18 10:20 AM) UA RBC [0-2 /HPF] <1 /HPF (05/23/18 10:20 AM) UA Sq Epi [Few /LPF] Moderate /LPF *ABN* (05/23/18 10:20 AM) UA Renal Epi [<=0] RARE *NA* (05/23/18 10:20 AM) UA Mucus [None Seen /LPF] Few /LPF *NA* (05/23/18 10:20 AM) IMMUNOLOGY Most recent to oldest [Reference Range]: 1 Treponemal Ab [Non-Reactive] Non-Reactive *NA* (05/23/18 9:55 AM) CMV IgG [Non Reactive] Reactive *ABN* (05/23/18 9:55 AM) CMV IgM 0.2 S/CO Ratio *NA* (05/23/18 9:55 AM) EBV VCA IgG [<=0.8 AI] >8.0 AI *HI* (05/23/18 9:55 AM) EBV VCA IgM [<=0.8 AI] <0.2 AI (05/23/18 9:55 AM) Varicella IgG [<=0.8 AI] >8.0 AI *HI* (05/23/18 9:55 AM) Varicella IgM [0.00-0.90 INDEX] <0.91 INDEX 1 *NA* (05/23/18 9:55 AM) HIV Ag/Ab 4th Gen [Negative] Negative *NA* (05/23/18 9:55 AM) T-Spot.TB [Negative] Negative (05/23/18 9:55 AM) HSV 1 IgG [<=0.8 AI] >8.0 AI *HI* (05/23/18 9:55 AM) HSV 2 IgG [<=0.8 AI] <0.2 AI (05/23/18 9:55 AM) [place] Free Light Chains [3.30-19.40 196.11 mg/L mg/L] *HI* (05/23/18 9:55 AM) Lambda Free Light Chains [5.70-26.30 89.85 mg/L mg/L] *HI* (05/23/18 9:55 AM) [place]/Lambda Free Light Chains Ratio 2.18 Ratio [0.26-1.65 Ratio] *HI* (05/23/18 9:55 AM) Albumin % [55.8-66.1 REL %] 60.9 REL % (05/23/18 9:55 AM) Alpha 1 % [2.8-4.9 REL %] 3.6 REL % (05/23/18 9:55 AM) Alpha 2 % [7.0-11.9 REL %] 7.8 REL % (05/23/18 9:55 AM) Beta % [7.8-13.7 REL %] 9.5 REL % (05/23/18 9:55 AM) Gamma % [11.1-18.7 REL %] 18.2 REL % (05/23/18 9:55 AM) Albumin (SPE) [3.57-5.55 g/dL] 4.93 g/dL (05/23/18 9:55 AM) Alpha 1 Glob [0.18-0.41 g/dL] 0.29 g/dL (05/23/18 9:55 AM) Alpha 2 Glob [0.45-1.00 g/dL] 0.63 g/dL (05/23/18 9:55 AM) Beta Glob [0.50-1.15 g/dL] 0.77 g/dL (05/23/18 9:55 AM) Gamma Glob [0.71-1.57 g/dL] 1.47 g/dL (05/23/18 9:55 AM) Tot Prot (SPE) [6.4-8.4 g/dL] 8.1 g/dL (05/23/18 9:55 AM) SPE Interp Capillary electrophoresis does not demonstrate any features consistent with the presence of a monoclonal gammopathy. Total protein level is within the reference range. Serum protein electrophoresis show s normal distribution of the main protein fractions. Serum protein electrophoresis shows no pathologic changes. Corresponding serum protein immunofixation electrophoresis does not show evidence of a monoclonal gammopathy (see a separate report). I have personally reviewed the test results and concur with the resident's interpretation. CPT 05478-FK *NA* (05/23/18 9:55 AM) MIKE Ser Pattern Diffusely staining immunoreactivity is present in the IgG, IgA , IgM, kappa, and lambda lanes in a normal polyclonal distribution. No monoclonal immunoglobulins are detected. *NA* (05/23/18 9:55 AM) MIKE Ser Interp The serum immunofixation electrophoresis demonstrates polyclonal distribution of immunoglobulins. No monoclonal immunoglobulins are detected. The electronic medical record has been reviewed for relevant history. I have personally reviewed the test results and concur with the resident's interpretation. CPT 23084-XN *NA* (05/23/18 9:55 AM) Hep Bs Ag [Negative] Negative *NA* (05/23/18 9:55 AM) Hep Bs Ab [<=7.4 mIU/mL] 4.5 mIU/mL (05/23/18 9:55 AM) Hep B Core Ab [Negative] Negative *NA* (05/23/18 9:55 AM) Hep C Ab Negative *NA* (05/23/18 9:55 AM) 1Result Comment: Negative <0.91 Borderline 0.91 - 1.09 Positive >1.09 Performed At: [facility] [id number] Gilmar Gómez MD Ph:[phone] Most recent to oldest [Reference Range]: 1 WBC [3.7-10.4 K/CMM] 6.1 K/CMM (05/23/18 9:55 AM) RBC [4.70-6.10 M/CMM] 4.54 M/CMM *LOW* (05/23/18 9:55 AM) Hgb [14.0-18.0 g/dL] 12.2 g/dL *LOW* (05/23/18 9:55 AM) Hct [42.0-54.0 %] 36.7 % *LOW* (05/23/18 9:55 AM) MCV [80.0-94.0 fL] 80.9 fL (05/23/18 9:55 AM) MCH [27.0-31.0 pg] 27.0 pg (05/23/18 9:55 AM) MCHC [32.0-36.0 g/dL] 33.3 g/dL (05/23/18 9:55 AM) RDW [11.5-14.5 %] 18.1 % *HI* (05/23/18 9:55 AM) MPV [7.4-10.4 fL] 8.0 fL (05/23/18 9:55 AM) Platelet [133-450 K/CMM] 228 K/CMM (05/23/18 9:55 AM) Segs [45.0-75.0 %] 65.1 % (05/23/18 9:55 AM) Lymphocytes [20.0-40.0 %] 22.0 % (05/23/18 9:55 AM) Monocytes [2.0-12.0 %] 7.7 % (05/23/18 9:55 AM) Eosinophils [0.0-4.0 %] 4.3 % *HI* (05/23/18 9:55 AM) Basophils [0.0-1.0 %] 0.9 % (05/23/18 9:55 AM) Neutrophils # [1.5-8.1 K/CMM] 3.9 K/CMM (05/23/18 9:55 AM) Lymphocytes # [1.0-5.5 K/CMM] 1.3 K/CMM (05/23/18 9:55 AM) Monocytes # [0.0-0.8 K/CMM] 0.5 K/CMM (05/23/18 9:55 AM) Eosinophils # [0.0-0.5 K/CMM] 0.3 K/CMM (05/23/18 9:55 AM) Basophils # [0.0-0.2 K/CMM] 0.1 K/CMM (05/23/18 9:55 AM) PT [12.0-14.7 seconds] 13.8 seconds (05/23/18 9:55 AM) INR [0.85-1.17] 1.06 (05/23/18 9:55 AM) PTT [22.9-35.8 seconds] 35.0 seconds (05/23/18 9:55 AM) REFERENCE LAB RESULTS Most recent to oldest [Reference Range]: 1 Test Name HLA TYPING RESULTS *Unknown* (05/23/18 10:54 AM) PARASITOLOGY - SEROLOGY Most recent to oldest [Reference Range]: 1 Strongyloides Antibodies [Negative] Negative 1 *NA* (05/23/18 9:55 AM) 1Result Comment: Performed At: [facility] [id number] Gilmar Gómez MD Ph:[phone] Immunizations Given and Recorded Vaccine Date Status [...]
--- OUTSIDE RECORDS SUMMARY | 2019-02-21 15:02 | XMS REPORT | Summary of Care ---
:1960 Author Organization [facility] Address [address] [place] [address]- Encounter HQ Jose Angel(ELVIRA) [phone] Date(s): 07/21/18 - 07/24/18 [facility] [id number] [place] [phone] Encounter Diagnosis Other specified complication of vascular prosthetic devices, implants and grafts , initial encounter (Final) - 07/30/18 End stage renal disease (Final) - Acute pulmonary edema (Final) - Hypertensive chronic kidney disease with stage 5 chronic kidney disease or end stage renal disease (Final) - Pericardial effusion (noninflammatory) (Final) - Acute kidney failure, unspecified (Final) - Fluid overload, unspecified (Final) - Dependence on renal dialysis (Final) - Type 2 diabetes mellitus with diabetic chronic kidney disease (Final) - Obesity, unspecified (Final) - Body mass index (BMI) 33.0-33.9, adult (Final) - Sleep apnea, unspecified (Final) - Chronic obstructive pulmonary disease, unspecified (Final) - Discharge Disposition: Home or Self Care Attending Physician: Roger Cha MD Admitting Physician: Roger Cha MD Vital Signs Most recent to oldest 1 2 3 [Reference Range]: Height 170.18 cm 170.18 cm (07/22/18 6:03 AM) (07/21/18 8:54 PM) Temperature Oral 98.2 DegF 98.3 DegF 98.2 DegF [96.4-99.1 DegF] (07/24/18 3:59 PM) (07/24/18 11:59 AM) (07/24/18 11:33 AM) Blood Pressure 168/85 mmHg 175/87 mmHg 179/97 mmHg [90-140/60-90 mmHg] *HI* *HI* *HI* (07/24/18 3:59 PM) (07/24/18 11:59 AM) (07/24/18 11:33 AM) Respiratory Rate [14-20 18 BRMIN 18 BRMIN 18 BRMIN BRMIN] (07/24/18 3:59 PM) (07/24/18 11:59 AM) (07/24/18 11:33 AM) Peripheral Pulse Rate 82 bpm 82 bpm 81 bpm [60-100 bpm] (07/24/18 3:59 PM) (07/24/18 11:59 AM) (07/24/18 11:33 AM) Weight 102.273 kg 96.7 kg (07/22/18 6:03 AM) (07/21/18 8:54 PM) Body Mass Index 35.31 m2 33.39 m2 (07/22/18 6:03 AM) (07/21/18 8:54 PM) Problem List Condition Effective Dates Status Health Status Informant Anxiety(Confirmed) Resolved Diabetes(Confirmed) Resolved ESRD (end stage renal disease) on Active dialysis(Confirmed) Hypertension(Confirmed) Resolved Pericardial effusion(Confirmed) Active Simple obesity(Confirmed) Active Sleep apnea(Confirmed) Resolved Allergies, Adverse Reactions, Alerts No Known Medication Allergies Medications acetaminophen 325 mg, 1 tab, Route: PO, Drug form: TAB, Q4H, Dosing Weight 96.7, kg, PRN Pain Score 4-6, Start date: 07/22/18 0:22:00 CDT, Duration: 30 day, Stop date: 0:21:00 EVENT STAFF MEMBER Notes: Do not exceed 4 gm/day. (Same as: Tylenol) Start Date: 07/22/18 Stop Date: 07/24/18 Status: DiscontinuedamLODIPine 10 mg, 2 tab, Route: PO, Drug form: TAB, Daily, Dosing Weight 102.273, kg, Start date: 07/22/18 9:00:00 CDT, Duration: 30 day, Stop date: 08/20/18 9:00:00 EVENT STAFF MEMBER Notes: (Same as: Norvasc) Start Date: 07/22/18 Stop Date: 07/24/18 Status: DiscontinuedamLODIPine-benazepril 10 mg-20 mg oral capsule 1 cap, PO, TID, 0 Refill(s) Start Date: 07/22/18 Status: Orderedcalcium acetate 667 mg oral capsule 2,001 mg, 3 cap, Route: PO, Drug form: CAP, TID, Dosing Weight 102.273, kg, Start date: 07/22/18 9:00:00 CDT, Duration: 30 day, Stop date: 08/20/18 17:00: 00 EVENT STAFF MEMBER Notes: Same as Phoslo Gel Cap Start Date: 07/22/18 Stop Date: 07/24/18 Status: Discontinuedcalcium acetate 667 mg oral capsule See Instructions, 0 Refill(s) Start Date: 07/22/18 Status: Orderedcarvedilol 3.125 mg, 1 tab, Route: PO, Drug form: TAB, Q12H, Dosing Weight 102.273, kg, Start date: 07/22/18 9:00:00 CDT, Duration: 30 day, Stop date: 08/20/18 21:00: 00 EVENT STAFF MEMBER Notes: Give with food. (Same As: Coreg) Start Date: 07/22/18 Stop Date: 07/24/18 Status: Discontinuedcarvedilol 12.5 mg oral tablet 37.5 mg=3 tab, PO, BID, 0 Refill(s) Start Date: 07/22/18 Status: OrderedDilaudid 1 mg, Route: IVP, ONCE, Dosing Weight 96.7, kg, Priority: STAT, Start date: 4:04:00 CDT, Stop date: 07/22/18 4:04:00 CDT Start Date: 07/22/18 Stop Date: 07/22/18 Status: CompletedDilaudid 0.5 mg, 0.5 mL, Route: IVP, Drug form: INJ, ONCE, Dosing Weight 96.7, kg, Priority: STAT, Start date: 07/21/18 23:46:00 CDT, Stop date: 07/21/18 23:46:00 CDT Notes: Same as: Dilaudid Start Date: 07/21/18 Stop Date: 07/22/18 Status: CompletedDilaudid 1 mg, Route: IVP, ONCE, Dosing Weight 96.7, kg, Priority: STAT, Start date: 2:16:00 CDT, Stop date: 07/22/18 2:16:00 CDT Start Date: 07/22/18 Stop Date: 07/22/18 Status: CompletedDilaudid 2 mg, 1 tab, Route: PO, Drug form: TAB, Q4H, PRN Pain Score 7-10, Start date: 14:17:00 CDT,Duration: 30 day, Stop date: 08/22/18 14:16:00 EVENT STAFF MEMBER Notes: (Same as: Dilaudid) Start Date: 07/23/18 Stop Date: 07/24/18 Status: DiscontinuedDilaudid 0.5 mg, 0.5 mL, Route: IVP, Drug form: INJ, ONCE, Dosing Weight 96.7, kg, Priority: STAT, Start date: 07/22/18 0:07:00 CDT, Stop date: 07/22/18 0:07:00 CDT Notes: Same as: Dilaudid Start Date: 07/22/18 Stop Date: 07/22/18 Status: CompletedDilaudid 0.5 mg, 0.5 mL, Route: IVP, Drug form: INJ, Q4H, Dosing Weight 102.273, kg, PRN Pain Score 7-10, Start date: 07/22/18 6:27:00 CDT, Duration: 30 day, Stop date: 08/21/18 6:26:00 EVENT STAFF MEMBER Notes: Same as: Dilaudid Start Date: 07/22/18 Stop Date: 07/23/18 Status: Discontinueddocusate 100 mg, 1 cap, Route: PO, Drug form: CAP, BID, Dosing Weight 96.7, kg, Start date: 07/22/18 9:00:00 CDT, Duration: 30 day, Stop date: 08/20/18 17:00:00 EVENT STAFF MEMBER Notes: (Same as: Colace) (Do Not Crush) Start Date: 07/22/18 Stop Date: 07/24/18 Status: Discontinuedheparin 10,000 unit, 10 mL, Route: DIALYSIS, Drug form: INJ, ONCALL, Dosing Weight 102.273, kg, PRN Dialysis, Start date: 07/24/18 10:21:00 CDT, Duration: 1 doses or times, Stop date: Limited # of times Start Date: 07/24/18 Stop Date: 07/24/18 Status: Discontinuedheparin 10,000 unit, 10 mL, Route: DIALYSIS, Drug form: INJ, ONCALL, Dosing Weight 102.273, kg, Start date: 07/23/18 8:00:00 CDT, Duration: 1 doses or times Start Date: 07/23/18 Stop Date: 07/23/18 Status: Completedheparin 10,000 unit, 10 mL, Route: DIALYSIS, Drug form: INJ, ONCALL, Dosing Weight 96.7 , kg, Start date: 07/22/18 1:00:00 CDT, Duration: 1 doses or times Start Date: 07/22/18 Stop Date: 07/23/18 Status: DiscontinuedhydrALAZINE 50 mg, PO, TID, 0 Refill(s) Start Date: 07/22/18 Status: OrderedhydrALAZINE 50 mg oral tablet 50 mg, 1 tab, Route: PO, Drug form: TAB, TID, Dosing Weight 102.273, kg, Start date: 07/22/18 9:00:00 CDT, Duration: 30 day, Stop date: 08/20/18 17:00:00 EVENT STAFF MEMBER Notes: (Same as: Apresoline) May interfere w/enteral feedings Take With Food Start Date: 07/22/18 Stop Date: 07/24/18 Status: Discontinuedhydromorphone 0.5 mg, 0.5 mL, Route: IVP, Drug form: INJ, ONCE, Dosing Weight 96.7, kg, Priority: STAT, Start date: 07/21/18 23:13:00 CDT, Stop date: 07/21/18 23:13:00 CDT Notes: Same as: Dilaudid Start Date: 07/21/18 Stop Date: 07/21/18 Status: CompletedhydrOXYzine hydrochloride 25 mg oral tablet 25 mg, 1 tab, Route: PO, Drug form: TAB, TID, Dosing Weight 102.273, kg, PRN Anxiety, Start date: 07/22/18 6:31:00 CDT, Duration: 30 day, Stop date: 6:30:00 EVENT STAFF MEMBER Notes: (Same as: Atarax) Avoid alcohol. Start Date: 07/22/18 Stop Date: 07/24/18 Status: DiscontinuedLasix 80 mg, 2 tab, Route: PO, Drug form: TAB, BID, Dosing Weight 102.273, kg, Start date: 07/22/18 9:00:00 CDT, Duration: 30 day, Stop date: 08/20/18 17:00:00 EVENT STAFF MEMBER Notes: (Same as: Lasix) May cause GI upset. Give with food or milk. Start Date: 07/22/18 Stop Date: 07/24/18 Status: Discontinuedmannitol 25 gm, 100 mL, Route: IVPB, Drug form: INJ, ONCE, Dosing Weight 96.7, kg, Start date: 07/22/18 0:43:00 CDT, Stop date: 07/22/18 0:43:00 CDT Notes: (Same as: Osmitrol) Infuse through 5 micron or smaller filter WASTE: F/ P - Sink; E - Municipal Trash Bin Start Date: 07/22/18 Stop Date: 07/28/18 Status: Discontinuedmorphine Sulfate 2 mg, 2 mL, Route: IVP, Drug form: SOLN, Q4H, Dosing Weight 96.7, kg, PRN Pain Score 7-10, Start date: 07/22/18 0:22:00 CDT, Duration: 30 day, Stop date: 08/21 0:21:00 EVENT STAFF MEMBER Notes: Preservative free. (Same as: Morphine Sulfate-PF) Start Date: 07/22/18 Stop Date: 07/24/18 Status: Discontinuedmultivitamin 1 tab, Route: PO, Drug Form: TAB, Dosing Weight 102.273, kg, Daily, Start date: 07/22/18 9:00:00 CDT, Duration: 30 day, Stop date: 08/20/18 9:00:00 EVENT STAFF MEMBER Notes: (Same as:One Tab Daily, Tab-A-Conor + Beta Carotene) Give with food. Start Date: 07/22/18 Stop Date: 07/24/18 Status: DiscontinuedNIFEdipine 60 mg oral tablet, extended release 60 mg=1 tab, PO, Daily, # 30 tab, 0 Refill(s), Pharmacy: [facility] # [id number] Start Date: 07/24/18 Stop Date: 08/23/18 Status: OrderedNIFEdipine 60 mg oral tablet, extended release 60 mg, 2 tab, Route: PO, Drug form: ERTAB, Daily, Dosing Weight 102.273, kg, Start date: 07/22/18 9:00:00 CDT, Duration: 30 day, Stop date: 08/20/18 9:00:00 EVENT STAFF MEMBER Notes: (Same as: Adalat CC, Procardia XL) Give on empty stomach. Take 1 hour before or 2 hours after meal; "Avoid grapefruit and grapefruit juice". Do not crush Start Date: 07/22/18 Stop Date: 07/24/18 Status: Discontinuednormal saline 0.9% IV 1,000 mL 1,000 mL, Rate: for dialysis prime and rinseback only, Rate: 0 ml/hr, Infuse over: 0, Route: IV, Dosing Weight 96.7 kg, Total Volume: 1,000, Start date: 0:43:00 CDT, Duration: 30 day, Stop date: 08/21/18 0:42:00 EVENT STAFF MEMBER, 2.16, m2 Start Date: 07/22/18 Stop Date: 07/24/18 Status: Discontinuedondansetron 4 mg, 2 mL, Route: IVP, Drug form: INJ, Q6H, Dosing Weight 96.7, kg, PRN Nausea & Vomiting, Start date: 07/22/18 0:22:00 CDT, Duration: 30 day, Stop date: 08/21/18 0:21:00 EVENT STAFF MEMBER Notes: (Same as: Zofran) MEDICATION WASTE Product Size: 4 mgProduct Wasted: ___ mg Start Date: 07/22/18 Stop Date: 07/24/18 Status: DiscontinuedSaline Flush 0.9% 10 mL, Route: IVP, Drug Form: INJ, Dosing Weight 96.7, kg, PRN, PRN Line Flush, Start date: 07/21/1821:24:00 CDT, Duration: 30 day, Stop date: 08/20/18 20:23: 00 EVENT STAFF MEMBER Notes: (Same as: BD Posiflush) Start Date: 07/21/18 Stop Date: 07/24/18 Status: DiscontinuedSodium Chloride 0.9% IV 2,000 mL 2,000 mL, Rate: for dialysis, Route: IV, Dosing Weight 102.273 kg, Total Volume : 2,000, Start date: 07/23/18 7:22:00 CDT, Duration: 1 day, Stop date: 07/24/18 7:21:00 CDT, 2.23, m2 Start Date: 07/23/18 Stop Date: 07/24/18 Status: Completedtamsulosin 0.4 mg, 1 cap, Route: PO, Drug form: CAP, Bedtime, Dosing Weight 102.273, kg, Start date: 07/22/18 21:00:00 CDT, Duration: 30 day, Stop date: 08/20/18 21:00: 00 EVENT STAFF MEMBER Notes: (Same As: Flomax) "Do Not Crush" Start Date: 07/22/18 Stop Date: 07/24/18 Status: DiscontinuedXanax 2 mg oral tablet 2 mg, 2 tab, Route: PO, Drug form: TAB, BID, Dosing Weight 102.273, kg, PRN Anxiety, Start date: 07/22/18 6:31:00 CDT, Duration: 30 day, Stop date: 6:30:00 EVENT STAFF MEMBER Notes: With food or milk(Same as: Xanax) Start Date: 07/22/18 Stop Date: 07/24/18 Status: DiscontinuedZofran 4 mg, 2 mL, Route: IVP, Drug form: INJ, ONCE, Dosing Weight 96.7, kg, Start date : 07/21/18 23:47:00 CDT, Stop date: 07/21/18 23:47:00 CDT Notes: (Same as: Zofran) MEDICATION WASTE Product Size: 4 mgProduct Wasted: ___ mg Start Date: 07/21/18 Stop Date: 07/22/18 Status: Completedzolpidem 10 mg, Route: PO, Drug form: TAB, Bedtime, Dosing Weight 102.273, kg, Start date : 07/22/18 21:00:00 CDT, Duration: 30 day, Stop date: 08/20/18 21:00:00 EVENT STAFF MEMBER Start Date: 07/22/18 Stop Date: 07/22/18 Status: Deletedzolpidem 5 mg, 1 tab, Route: PO, Drug form: TAB, Bedtime, Start date: 07/22/18 21:00:00 CDT, Duration: 30 day, Stop date: 08/20/18 21:00:00 EVENT STAFF MEMBER Notes: (Same As: Sri) Start Date: 07/22/18 Stop Date: 07/24/18 Status: Discontinued Results Most recent to oldest 1 2 3 [Reference Range]: Neutrophils # [1.5-8.1 3.0 K/CMM 3.3 K/CMM 2.7 K/CMM K/CMM] (07/23/18 7:41 AM) (07/22/18 6:17 AM) (07/21/18 9:46 PM) Lymphocytes # [1.0-5.5 0.8 K/CMM 1.0 K/CMM 0.9 K/CMM K/CMM] *LOW* (07/22/18 6:17 AM) *LOW* (07/23/18 7:41 AM) (07/21/18 9:46 PM) Monocytes # [0.0-0.8 K/CMM] 0.4 K/CMM 0.4 K/CMM 0.3 K/CMM (07/23/18 7:41 AM) (07/22/18 6:17 AM) (07/21/18 9:46 PM) Eosinophils # [0.0-0.5 0.2 K/CMM 0.1 K/CMM 0.1 K/CMM K/CMM] (07/23/18 7:41 AM) (07/22/18 6:17 AM) (07/21/18 9:46 PM) proBNP [0-125 pg/mL] 19794 pg/mL *HI* (07/21/18 9:46 PM) eGFR 4 mL/min/1.73m2 1 2 mL/min/1.73m2 2 2 mL/min/1.73m2 3 *NA* *NA* *NA* (07/23/18 7:41 AM) (07/22/18 6:17 AM) (07/21/18 9:46 PM) A/G Ratio [0.7-1.6] 0.9 (07/21/18 9:46 PM) Albumin Lvl [3.5-5.0 g/dL] 2.8 g/dL *LOW* (07/21/18:46 PM) Alk Phos [39-136 unit/L] 57 unit/L (07/21/18:46 PM) ALT [0-65 unit/L] 13 unit/L (07/21/18:46 PM) AGAP [10.0-20.0 mEq/L] 14.8 mEq/L 19.7 mEq/L 18.7 mEq/L (07/23/18 7:41 AM) (07/22/18 6:17 AM) (07/21/18:46 PM) AST [0-37 unit/L] 9 unit/L (07/21/18:46 PM) B/C Ratio [6-25] 5 *LOW* (07/21/18:46 PM) Basophils [0.0-1.0 %] 0.8 % 1.0 % 1.2 % (07/23/18 7:41 AM) (07/22/18 6:17 AM) *HI* (07/21/18:46 PM) BUN [7-22 mg/dL] 60 mg/dL 97 mg/dL 95 mg/dL *HI* *HI* *HI* (07/23/18 7:41 AM) (07/22/18 6:17 AM) (07/21/18:46 PM) Calcium Lvl [8.5-10.5 7.9 mg/dL 7.5 mg/dL 7.6 mg/dL mg/dL] *LOW* *LOW* *LOW* (07/23/18 7:41 AM) (07/22/18:17 AM) (07/21/18:46 PM) Total CK [12-191 unit/L] 91 unit/L (07/21/18:46 PM) Chloride Lvl [95-109 mEq/L] 102 mEq/L 98 mEq/L 98 mEq/L (07/23/18 7:41 AM) (07/22/18 6:17 AM) (07/21/18 9:46 PM) CO2 [24-32 mEq/L] 27 mEq/L 22 mEq/L 24 mEq/L (07/23/18 7:41 AM) *LOW* (10/13/18 9:46 PM) (07/22/18:17 AM) Creatinine Lvl [0.50-1.40 12.90 mg/dL 19.20 mg/dL 18.60 mg/dL mg/dL] *HI* *HI* *HI* (07/23/18 7:41 AM) (07/22/18 6:17 AM) (07/21/18 9:46 PM) Eosinophils [0.0-4.0 %] 3.7 % 3.1 % 3.5 % (07/23/18 7:41 AM) (07/22/18 6:17 AM) (07/21/18 9:46 PM) Globulin [2.7-4.2 g/dL] 3.2 g/dL (07/21/18 9:46 PM) Glucose Lvl [70-99 mg/dL] 93 mg/dL 82 mg/dL 89 mg/dL (07/23/18 7:41 AM) (07/22/18 6:17 AM) (07/21/18 9:46 PM) Hep Bs Ag [Negative] Negative *NA* (07/22/18:17 AM) Hct [42.0-54.0 %] 22.0 % 23.4 % 23.2 % *LOW* *LOW* *LOW* (07/23/18 7:41 AM) (07/22/18 6:17 AM) (07/21/18 9:46 PM) Hgb [14.0-18.0 g/dL] 7.8 g/dL 8.2 g/dL 8.1 g/dL *LOW* *LOW* *LOW* (07/23/18 7:41 AM) (07/22/18 6:17 AM) (07/21/18 9:46 PM) INR [0.85-1.17] 1.12 (07/21/18 9:46 PM) Potassium Lvl [3.5-5.1 4.8 mEq/L 4.7 mEq/L 4.7 mEq/L mEq/L] (07/23/18 7:41 AM) (07/22/18 6:17 AM) (07/21/18 9:46 PM) Lipase Lvl [73-393 unit/L] 95 unit/L (07/21/18 9:46 PM) Lymphocytes [20.0-40.0 %] 18.2 % 20.3 % 21.4 % *LOW* (07/22/18:17 AM) (07/21/18 9:46 PM) (07/23/18 7:41 AM) MCH [27.0-31.0 pg] 29.0 pg 28.8 pg 28.8 pg (07/23/18 7:41 AM) (07/22/18:17 AM) (07/21/18 9:46 PM) MCHC [32.0-36.0 g/dL] 35.3 g/dL 35.0 g/dL 35.2 g/dL (07/23/18 7:41 AM) (07/22/18:17 AM) (07/21/18 9:46 PM) MCV [80.0-94.0 fL] 82.1 fL 82.3 fL 81.9 fL (07/23/18 7:41 AM) (07/22/18:17 AM) (07/21/18:46 PM) Magnesium Lvl [1.8-2.4 2.5 mg/dL mg/dL] *HI* (07/22/18:17 AM) Monocytes [2.0-12.0 %] 9.7 % 8.5 % 7.7 % (07/23/18 7:41 AM) (07/22/18:17 AM) (07/21/18 9:46 PM) MPV [7.4-10.4 fL] 7.3 fL 7.4 fL 7.6 fL *LOW* (07/22/18:17 AM) (07/21/18 9:46 PM) (07/23/18 7:41 AM) Sodium Lvl [135-145 mEq/L] 139 mEq/L 135 mEq/L 136 mEq/L (07/23/18 7:41 AM) (07/22/18:17 AM) (07/21/18 9:46 PM) Phosphorus [2.5-4.5 mg/dL] 6.1 mg/dL 8.3 mg/dL *HI* *HI* (07/23/18 7:41 AM) (10/14/18 6:17 AM) Platelet [133-450 K/CMM] 128 K/CMM 140 K/CMM 143 K/CMM *LOW* (07/22/18 6:17 AM) (07/21/18 9:46 PM) (07/23/18 7:41 AM) Segs [45.0-75.0 %] 67.6 % 67.1 % 66.2 % (07/23/18 7:41 AM) (07/22/18 6:17 AM) (07/21/18 9:46 PM) Total Protein [6.4-8.4 6.0 g/dL g/dL] *LOW* (07/21/18 9:46 PM) PT [12.0-14.7 seconds] 14.4 seconds (07/21/18 9:46 PM) PTT [22.9-35.8 seconds] 37.1 seconds *HI* (07/21/18 9:46 PM) RBC [4.70-6.10 M/CMM] 2.68 M/CMM 2.85 M/CMM 2.83 M/CMM *LOW* *LOW* *LOW* (07/23/18 7:41 AM) (07/22/18 6:17 AM) (07/21/18 9:46 PM) RDW [11.5-14.5 %] 14.5 % 15.0 % 14.8 % (07/23/18 7:41 AM) *HI* *HI* (07/22/18 6:17 AM) (07/21/18 9:46 PM) Bili Total [0.2-1.3 mg/dL] 0.4 mg/dL (07/21/18 9:46 PM) Troponin-I [0.00-0.40 <0.02 ng/mL ng/mL] (07/21/18 9:46 PM) WBC [3.7-10.4 K/CMM] 4.4 K/CMM 4.9 K/CMM 4.1 K/CMM (07/23/18 7:41 AM) (07/22/18 6:17 AM) (07/21/18 9:46 PM) 1Result Comment: The eGFR is calculated [...] eGFR should be multiplied by the estimated BMI.2Result Comment: The eGFR is calculated using the CKD-EPI formula. In most young, healthy individualsthe eGFR will be >90 mL/min/1.73m2. [...] eGFR should be multiplied by the estimated BMI.3Result Comment: The eGFR is calculated using the CKD-EPI formula. In most young, healthy individualsthe eGFR will be >90 mL/min/1.73m2. [...] No entered on: 07/22/18 Assessment and Plan Extracted from: Title: Nephrology progress note Author: Nick Desir Date: Balbir CRUZ Impression and Plan 57-year-old male with history of hypertension, end-stage renal disease on peritoneal dialysis, presented to emergency room after dysfunctional peritoneal dialysis catheter. 1. End-stage renal disease on peritoneal hemodialysis. Dysfunctional peritoneal dialysis catheter. Suboptimal peritoneal dialysis in the last week. S/p Left IJ non-tunneled HD catheter placement ( 07/21/2018), S/p catheter removal. S/p right EJ tunneled HD catheter (07/22/2018). Last HD this morning. 2. Hypervolemia. Uremic symptoms. Improved. S/p HD on 07/24/2018. 3. Hypertension, uncontrolled. 4. Dysfunctional peritoneal dialysis catheter. s/p IR intervention and attempt to reposition PD catheter. Recommendation. Renal diet, limit fluid to 1 L a day. From renal standpoint, patient can be discharge. He can be followed HD on MWF at [facility]. Function of PD catheter will be tested as outpatient, at [facility]. Follow up with Surgery if PD catheter still not working. Drug dose adjustment to GFR. Any question, please call [phone]. Extracted from: Title: Discharge Summary * Author: Roger Cha MD Date: Discharge Information dislodged PD catheter ESRD on HD Hypertension Diabetes Discharge Plan Discharge Summary Plan Discharge Status: improved. Discharge instructions given: to patient. Discharge disposition: discharge to home. Prescriptions: e prescribed. Orders time spent >35 minutes. Extracted from: Title: UO History and Physical Author: Jacob Santiago MD Date: Chief Complaint 07/21/2018 20:54 Pt c/o of perotineal dialysis cathether being clogged. Pt was dialysed 2 days ago and c/o abdominal pain. Pt voids. History of Present Illness Pt is a 57-year-old male with past medical history of hypertension, ESRD recently started home PD presented with complaints of shortness of breath and weakness. Of note patient's peritoneal dialysis ca theter stopped working a couple of days ago when patient presented to the ER to have access evaluated. Patient was discharged home and asked to present on Monday for placement of temporary Harvey acce ss for dialysis. However because of patient's symptomaticity, Dr. Harvey told patient to going to the ER as there was concern that patient may for concernsof poor outcomes if he waits till monday. Patient has been admitted for hemodialysis needs. Review of Systems All other ROS negative except that mentioned in HPI. Health Status Allergies: Allergies (1) Active Reaction NKDA None Documented Current medications: Home Medications (14) Active amLODIPine 10 mg oral tablet 10 mg=1 tab, PO, Daily calcium acetate 667 mg oral capsule 2,001 mg=3 cap, PO, TID carvedilol 3.125 mg oral tablet 3.125 mg=1 tab, PO, Q12H hydrALAZINE 50 mg oral tablet 50 mg=1 tab, PO, TID hydrOXYzine hydrochloride 25 mg oral tablet 25 mg=1 tab, PRN, PO, TID Kayexalate oral and rectal powder 15 gm, PO, Daily lactulose 10 g oral powder 1 Pack, PO, Daily Lasix 80 mg oral tablet 80 mg=1 tab, PO, BID LORazepam 1 mg oral tablet 1 mg=1 tab, PO, PRN NIFEdipine 60 mg oral tablet, extended release 60 mg=1 tab, PO, Daily Fauzia-Conor oral tablet 1 tab, PO, Daily tamsulosin 0.4 mg oral capsule 0.4 mg=1 cap, PO, Bedtime Xanax 2 mg oral tablet 2 mg=1 tab, PRN, PO, BID zolpidem 10 mg oral tablet 10 mg=1 tab, PO, Bedtime , Medications (8) Active Scheduled: (3) docusate sodium 100 mg CAP 100 mg 1 cap, PO, BID heparin 1000 unit/1ml 10 ml INJ VL 10,000 unit 10 mL, DIALYSIS, ONCALL mannitol 25% 50 ml INJ 25 gm 100 mL, IVPB, ONCE Continuous: (1) sodium chloride 0.9% 1000 ml INJ 1,000 mL 1,000 mL, IV, 0 ml/hr PRN: (4) acetaminophen 325 mg TABLET 325 mg 1 tab, PO, Q4H MORPhine PF 2 mg/2 mL INJ syringe 2 mg 2 mL, IVP, Q4H ondansetron 4 mg/2ml INJ VL 4 mg 2 mL, IVP, Q6H sodium chloride 0.9% 10 ml flush syr BD 10 mL, IVP, PRN Problem list: All Problems ESRD (end stage renal disease) on dialysis / SNOMED CT 155484066 / Confirmed Pericardial effusion / SNOMED CT 7696835543 / Confirmed Simple obesity / SNOMED CT 0211145909 / Confirmed Resolved: Anxiety / SNOMED CT 74659837 Resolved: Diabetes / SNOMED CT 162524892 Resolved: Hypertension / SNOMED CT 6891662640 Resolved: Sleep apnea / SNOMED CT 573375599 Histories Past Medical History: Active ESRD (end stage renal disease) on dialysis (377277040) Pericardial effusion (3454696181) Resolved Hypertension (0191013915): Resolved. Diabetes (584353633): Resolved. Sleep apnea (470153105): Resolved. Anxiety (57903485): Resolved. Family History: Kidney disease Father Thyroid Dz/Problems Grandparent Procedure history: Shoulder manipulation ([id number]). Knee maneuver (568167006). Dialysis access site care ([id number]). Physical Examination VS/Measurements Vital Signs (last 24 hrs) Last Charted Temp Oral 98.5 DegF (JUL 22:) Heart Rate Peripheral 71 bpm (JUL 22:) Resp Rate 17 BRMIN (JUL 22:) SBP H 149mmHg (JUL 22:) DBP 85 mmHg (JUL 22:) SpO2 96 % (JUL 22) Weight 96.7 kg (JUL 21:) Height 170.18 cm (JUL 21:) BMI 33.39 (JUL 21:) Physical Exam: General: Awake, alert, NAD EYE: PERRLA, EOMI, HENT: neck supple, trachea midline, mucosa moist Cardio:No murmurs or gallops, edema Resp: CTAB, no rhonchi or wheezes GI: BS present, soft, non distended Musc: Gait wnl. Neuro: No focal neuro deficits. Psych: Appropriate mood, and affect. Review / Management Results review: Labs (Last four charted values) WBC 4.1 (JUL 21) Hgb L 8.1 (JUL 21) Hct L 23.2 (JUL 21) Plt 143 (JUL 21) Na 136 (JUL 21) K 4.7 (JUL 21) CO2 24 (JUL 21) Cl 98 (JUL 21) Cr H 18.60 (JUL 21) BUN H 95 (JUL 21) Glucose Random 89 (JUL 21) Ca L 7.6 (JUL 21) PT 14.4 (JUL 21) INR 1.12 (JUL 21) PTT H 37.1 (JUL 21) Troponin <0.02 (JUL 21) Total CK 91 (JUL 21) . Impression and Plan Patient is a 57-year-old male with past medical history of hypertension, ESRD on peritoneal dialysis, presented with complaints of shortness of breath and weakness. Shortness of breath, weakness: Most likely secondary to volume overload. Nephrology consulted for dialysis for volume overload. ESRD: On PD dialysis, will temporarily undergo hemodialysis on COPD axis is fixed. Nephrology consulted. Hypertension: Continue home meds. Diabetes: Sliding scale insulin. DVT prophylaxis: scd Code status: full Disposition: 1 to 2 midnights Addendum by Roger Cha MD on pt examined bedisde 07/22/2018 14:08 for catheter replacement today plan to monitor overnight Extracted from: Title: Nephrology consultation Author: Nick Desir Date: 07/21/18 Balbir CRUZ Impression and Plan 57-year-old male with history of hypertension, end-stage renal disease on peritoneal dialysis, presented to emergency room after dysfunctional peritoneal dialysis catheter. 1. End-stage renal disease on peritoneal hemodialysis. Dysfunctional peritoneal dialysis catheter. Suboptimal peritoneal dialysis in the last week. 2. Hypervolemia. Uremic symptoms. 3. Hypertension, uncontrolled. 4. Dysfunctional peritoneal dialysis catheter. Recommendation. Renal diet, limit fluid to 1 L a day. Placement of temporary hemodialysis catheter for hemodialysis. Hemodialysis after placement of temporary hemodialysis catheter X-ray of the abdomen to determine position of the tip of the peritoneal dialysis catheter. IR for evaluation of peritoneal dialysis catheter. Drug dose adjustment to GFR. Discussed with Dr. Hess. Thank you for the consultation, any question, please call [phone].
--- OUTSIDE RECORDS SUMMARY | 2019-02-21 15:02 | XMS REPORT | Summary of Care ---
:[address] [facility] Address [id number] [place] [id number] Encounter HQ [email or web address](FIN) [phone] Date(s): 01/22/18 - 01/22/[address] [phone] Encounter Diagnosis CKD (chronic kidney disease) (Discharge Diagnosis) - 01/22/18 Discharge Disposition: Home or Self Care Attending Physician: Osvaldo Mike MD Vital Signs Most recent to oldest 1 2 3 [Reference Range]: Height 165.1 cm (01/22/18 7:14 PM) Temperature Oral [96.4-99.1 98.2 DegF 98.2 DegF DegF] (01/22/18 10:30 PM) (01/22/18 7:14 PM) Blood Pressure [90-140/60-90 133/90 mmHg 157/83 mmHg 148/76 mmHg mmHg] (01/22/18 10:30 PM) *HI* *HI* (01/22/18 8:48 PM) (01/22/18 7:14 PM) Respiratory Rate [14-20 BRMIN] 18 BRMIN 18 BRMIN 17 BRMIN (01/22/18 10:30 PM) (01/22/18 8:48 PM) (01/22/18 7:14 PM) Peripheral Pulse Rate [60-100 67 bpm 75 bpm bpm] (01/22/18 8:48 PM) (01/22/18 7:14 PM) Weight 98.6 kg (01/22/18 7:14 PM) Body Mass Index 36.17 m2 (01/22/18 7:14 PM) Problem List No data available for this section Allergies, Adverse Reactions, Alerts Substance Reaction Severity Status NKDA Active Medications Saline Flush 0.9% 10 mL, Route: IVP, Drug Form: INJ, Dosing Weight 98.6, kg, PRN, PRN Line Flush, Start date: 01/22/1819:31:00 CDT, Duration: 30 day, Stop date: 02/21/18 19:30: 00 CDT Notes: (Same as: BD Posiflush) Start Date: 01/22/18 Stop Date: 01/22/18 Status: Discontinued Results ELECTROLYTES Most recent to oldest [Reference Range]: 1 Sodium Lvl [135-145 mEq/L] 130 mEq/L *LOW* (01/22/18 7:37 PM) Potassium Lvl [3.5-5.1 mEq/L] 4.4 mEq/L (01/22/18 7:37 PM) Chloride Lvl [95-109 mEq/L] 92 mEq/L *LOW* (01/22/18 7:37 PM) CO2 [24-32 mEq/L] 25 mEq/L (01/22/18 7:37 PM) AGAP [10.0-20.0 mEq/L] 17.4 mEq/L (01/22/18 7:37 PM) CHEM PANEL Most recent to oldest [Reference Range]: 1 Creatinine Lvl [0.50-1.40 mg/dL] 11.00 mg/dL *HI* (01/22/18 7:37 PM) eGFR 5 mL/min/1.73m2 1 *NA* (01/22/18 7:37 PM) BUN [7-22 mg/dL] 84 mg/dL *HI* (01/22/18 7:37 PM) B/C Ratio [6-25] 8 (01/22/18 7:37 PM) Glucose Lvl [70-99 mg/dL] 123 mg/dL *HI* (01/22/18 7:37 PM) Total Protein [6.4-8.4 g/dL] 7.4 g/dL (01/22/18 7:37 PM) Albumin Lvl [3.5-5.0 g/dL] 3.4 g/dL *LOW* (01/22/18 7:37 PM) Globulin [2.7-4.2 g/dL] 4.0 g/dL (01/22/18 7:37 PM) A/G Ratio [0.7-1.6] 0.8 (01/22/18 7:37 PM) Calcium Lvl [8.5-10.5 mg/dL] 6.7 mg/dL 2 *CRIT* (01/22/18 7:37 PM) Phosphorus [2.5-4.5 mg/dL] 9.1 mg/dL *HI* (01/22/18 7:37 PM) Magnesium Lvl [1.8-2.4 mg/dL] 1.9 mg/dL (01/22/18 7:37 PM) ALT [0-65 unit/L] 24 unit/L (01/22/18 7:37 PM) AST [0-37 unit/L] 23 unit/L (01/22/18 7:37 PM) Alk Phos [39-136 unit/L] 115 unit/L (01/22/18 7:37 PM) Bili Total [0.2-1.3 mg/dL] 0.4 mg/dL (01/22/18 7:37 PM) 1Result Comment: The eGFR is calculated [...] be multiplied by the estimated BMI.2Result Comment: Critical Result(s) called to Valorie Sanchez at 2017_ byJJ_. Read back OK.CARDIAC ENZYMES Most recent to oldest [Reference Range]: 1 Total CK [12-191 unit/L] 166 unit/L (01/22/18 7:37 PM) CK MB [0.5-3.6 ng/mL] 2.9 ng/mL (4/16/18 7:37 PM) CK MB Index [0.0-2.5] 1.7 (01/22/18 7:37 PM) Troponin-I [0.00-0.40 ng/mL] <0.02 ng/mL (01/22/18 7:37 PM) proBNP [0-125 pg/mL] 4827 pg/mL *HI* (01/22/18 7:37 PM) URINE AND STOOL Most recent to oldest [Reference Range]: 1 UA Turbidity [Clear] Clear (01/22/18 7:37 PM) UA Color STRAW *NA* (01/22/18 7:37 PM) UA pH [5.0-8.0] 6.0 (01/22/18 7:37 PM) UA Spec Grav [<=1.030] 1.005 (01/22/18 7:37 PM) UA Glucose 50 mg/dL *NA* (01/22/18 7:37 PM) UA Blood [Negative] Small *ABN* (01/22/18 7:37 PM) UA Ketones [Negative mg/dL] Negative mg/dL *NA* (01/22/18 7:37 PM) UA Protein [Negative mg/dL] >=300 mg/dL *ABN* (01/22/18 7:37 PM) UA Urobilinogen [0.1-1.0 mg/dL] <=1.0 mg/dL *NA* (01/22/18 7:37 PM) UA Bili [Negative] Negative *NA* (01/22/18 7:37 PM) UA Leuk Est [Negative] Small *ABN* (01/22/18 7:37 PM) UA Nitrite [Negative] Negative (01/22/18 7:37 PM) UA WBC [0-5 /HPF] 8 /HPF *HI* (01/22/18 7:37 PM) UA Bacteria [None Seen /HPF] Moderate /HPF *ABN* (01/22/18 7:37 PM) UA Sq Epi [Few /LPF] Few /LPF *NA* (01/22/18 7:37 PM) UA Mucus [None Seen /LPF] Few /LPF *NA* (01/22/18 7:37 PM) HEMATOLOGY Most recent to oldest [Reference Range]: 1 WBC [3.7-10.4 K/CMM] 7.6 K/CMM (01/22/18 7:37 PM) RBC [4.70-6.10 M/CMM] 3.16 M/CMM *LOW* (01/22/18 7:37 PM) Hgb [14.0-18.0 g/dL] 8.9 g/dL *LOW* (01/22/18 7:37 PM) Hct [42.0-54.0 %] 25.4 % *LOW* (01/22/18 7:37 PM) MCV [80.0-94.0 fL] 80.3 fL (01/22/18 7:37 PM) MCH [27.0-31.0 pg] 28.2 pg (01/22/18 7:37 PM) MCHC [32.0-36.0 g/dL] 35.1 g/dL (01/22/18 7:37 PM) RDW [11.5-14.5 %] 13.9 % (01/22/18 7:37 PM) MPV [7.4-10.4 fL] 7.5 fL (01/22/18 7:37 PM) Platelet [133-450 K/CMM] 238 K/CMM (01/22/18 7:37 PM) Segs [45.0-75.0 %] 63.7 % (01/22/18 7:37 PM) Lymphocytes [20.0-40.0 %] 21.5 % (01/22/18 7:37 PM) Monocytes [2.0-12.0 %] 10.4 % (01/22/18 7:37 PM) Eosinophils [0.0-4.0 %] 3.5 % (01/22/18 7:37 PM) Basophils [0.0-1.0 %] 0.9 % (01/22/18 7:37 PM) Segs-Bands # [1.5-8.1 K/CMM] 4.8 K/CMM (01/22/18 7:37 PM) Lymphocytes # [1.0-5.5 K/CMM] 1.6 K/CMM (01/22/18 7:37 PM) Monocytes # [0.0-0.8 K/CMM] 0.8 K/CMM (01/22/18 7:37 PM) Eosinophils # [0.0-0.5 K/CMM] 0.3 K/CMM (01/22/18 7:37 PM) Basophils # [0.0-0.2 K/CMM] 0.1 K/CMM (01/22/18 7:37 PM) PT [12.0-14.7 seconds] 13.8 seconds (01/22/18 7:37 PM) INR [0.85-1.17] 1.06 (01/22/18 7:37 PM) PTT [22.9-35.8 seconds] 35.7 seconds (01/22/18 7:37 PM) Immunizations No data available for this section Procedures Procedure Date Related Diagnosis Body Site Status Knee maneuver Completed Shoulder manipulation Completed Social History Social History Type Response Substance Abuse Use: None. Alcohol Past, Frequency: 1-2 times per week. Smoking Status Never smoker; Previous treatment: None; Ready to change: No; Concerns about tobacco use in household: No; Exposure to Tobacco Smoke None; Cigarette Smoking Last 365 Days No; Reg Smoking Cessation Counseling No entered on: 01/22/18 Assessment and Plan No data available for this section
--- OUTSIDE RECORDS SUMMARY | 2019-02-21 15:03 | XMS REPORT | Summary of Care ---
:1960 Author Organization [facility] Address [id number] [place] [id number] Encounter HQ Junior_deshaun(FIN) [id number] Date(s): 03/17/18 - 03/20/[address] [phone] Encounter Diagnosis Dyspnea, unspecified (Final) - Discharge Disposition: Home or Self Care Attending Physician: Leeann Sumner MD Admitting Physician: Leeann Sumner MD Vital Signs Most recent to oldest 1 2 3 [Reference Range]: Height 167.64 cm (03/17/18 7:01 AM) Temperature Oral [96.4-99.1 98.4 DegF 98.3 DegF 98.3 DegF DegF] (03/20/18 11:07 AM) (03/20/18 7:44 AM) (03/20/18 3:46 AM) Blood Pressure [90-140/60-90 137/72 mmHg 144/76 mmHg 146/80 mmHg mmHg] (03/20/18 11:07 AM) *HI* *HI* (03/20/18 7:44 AM) (03/20/18 3:46 AM) Respiratory Rate [14-20 BRMIN] 16 BRMIN 16 BRMIN 16 BRMIN (03/20/18 11:07 AM) (03/20/18 7:44 AM) (03/20/18 3:46 AM) Peripheral Pulse Rate [60-100 82 bpm 86 bpm 87 bpm bpm] (03/20/18 11:07 AM) (03/20/18 7:44 AM) (03/20/18 3:46 AM) Weight 100.455 kg 98.182 kg (03/17/18 7:01 AM) (03/17/18 2:27 AM) Body Mass Index 35.75 m2 (03/17/18 7:01 AM) Problem List No data available for this section Allergies, Adverse Reactions, Alerts Substance Reaction Severity Status NKDA Active Medications acetaminophen 650 mg, 2 tab, Route: PO, Drug form: TAB, Q4H, Dosing Weight 98.182, kg, PRN Pain 1-3/Temp > 100.4 F, Start date: 03/17/18 6:53:00 CDT, Duration: 30 day, Stop date: 04/16/18 6:52:00 CDT Notes: Do not exceed 4 gm/day. (Same as: Tylenol) Start Date: 03/17/18 Stop Date: 03/20/18 Status: DiscontinuedamLODIPine 10 mg, 2 tab, Route: PO, Drug form: TAB, Daily, Dosing Weight 100.455, kg, Start date: 03/18/18 9:00:00 CDT, Duration: 30 day, Stop date: 04/16/18 9:00:00 CDT Notes: (Same as: Norvasc) Start Date: 03/18/18 Stop Date: 03/20/18 Status: DiscontinuedamLODIPine 10 mg oral tablet 10 mg=1 tab, PO, Daily, # 30 tab, 0 Refill(s) Start Date: 03/17/18 Status: Orderedcalcium acetate 667 mg oral capsule 2,001 mg=3 cap, PO, TID, 0 Refill(s) Start Date: 03/17/18 Status: Orderedcarvedilol 3.125 mg, 1 tab, Route: PO, Drug form: TAB, Q12H, Dosing Weight 100.455, kg, Start date: 03/17/18 21:00:00 CDT, Duration: 30 day, Stop date: 04/16/18 9:00: 00 CDT Notes: Give with food. (Same As: Coreg) Start Date: 03/17/18 Stop Date: 03/20/18 Status: Discontinuedcarvedilol 3.125 mg oral tablet 3.125 mg=1 tab, PO, Q12H, # 60 tab, 0 Refill(s) Start Date: 03/17/18 Status: Orderedcefdinir 300 mg oral capsule 300 mg=1 cap, PO, Q12H, X 7 day, # 14 cap, 0 Refill(s), Pharmacy: [id number] Start Date: 03/19/18 Stop Date: 03/26/18 Status: Orderedcefepime + Sodium Chloride 0.9% IV 100 mL 1 gm, Route: IVPB, [id number], Dosing Weight 98.182, kg, (CrCl <10 ml/min or IHD ), Start date: 03/17/18 7:00:00 CDT, Duration: 7 day, Stop date: 03/23/18 7:00: 00 CDT, ABX Indication: Pneumonia Notes: (Same As: Maxipime) MEDICATION WASTE Product Size: 1000 mgProduct Wasted: ___ mg Start Date: 03/17/18 Stop Date: 03/20/18 Status: DiscontinuedChloraseptic 1.4% spray 1 spray, Route: TOP, TID, Drug form: SPRY, PRN Sore Throat, Start date: 15:08:00 CDT, Duration: 30 day, Stop date: 04/16/18 15:07:00 CDT Notes: Chloraseptic [place](Same as: Chloraseptic, Sore Throat [place])WASTE: F/P - Black; E - MunicipalTrash Bin Start Date: 03/17/18 Stop Date: 03/20/18 Status: DiscontinuedDextrose 50% Syringe 25 gm, 50 mL, Route: IVP, Drug Form: INJ, Dosing Weight 98.182, kg, PRN, PRN Blood Glucose Results, Start date: 03/17/18 6:49:00 CDT, Duration: 30 day, Stop date: 04/16/18 6:48:00 CDT Start Date: 03/17/18 Stop Date: 03/20/18 Status: DiscontinuedDextrose 50% Syringe 12.5 gm, 25 mL, Route: IVP, Drug Form: INJ, Dosing Weight 98.182, kg, PRN, PRN Blood Glucose Results, Start date: 03/17/18 6:49:00 CDT, Duration: 30 day, Stop date: 04/16/18 6:48:00 CDT Start Date: 03/17/18 Stop Date: 03/20/18 Status: Discontinuedglucagon 1 mg, Route: IM, Drug form: PDR/INJ, PRN, Dosing Weight 98.182, kg, PRN Blood Glucose Results, Startdate: 03/17/18 6:49:00 CDT, Duration: 30 day, Stop date: 04/16/18 6:48:00 CDT Start Date: 03/17/18 Stop Date: 03/20/18 Status: Discontinuedheparin 10,000 unit, 10 mL, Route: DIALYSIS, Drug form: INJ, ONCALL, Dosing Weight 100.455, kg, Start date: 03/19/18 10:00:00 CDT, Duration: 1 doses or times Start Date: 03/19/18 Stop Date: 03/20/18 Status: Discontinuedheparin 5,000 unit, 1 mL, Route: SUB-Q, Drug form: INJ, Q12H, Dosing Weight 98.182, kg, Start date: 189:00:00 CDT, Duration: 30 day, Stop date: 04/15/18 21:00:00 CDT Notes: porcine heparin Start Date: 03/17/18 Stop Date: 03/20/18 Status: Discontinuedheparin 10,000 unit, 10 mL, Route: DIALYSIS, Drug form: INJ, ONCALL, Dosing Weight 100.455, kg, Start date: 03/17/18 8:00:00 CDT, Duration: 1 doses or times Start Date: 03/17/18 Stop Date: 03/20/18 Status: DiscontinuedhydrALAZINE 10 mg, 0.5 mL, Route: IVP, Drug form: INJ, Q4H, Dosing Weight 100.455, kg, PRN Elevated BP, Start date: 03/17/18 15:10:00 CDT, Duration: 30 day, Stop date: 06/26 15:09:00 CDT Notes: (Same as: Apresoline)Push over 5 minutes Start Date: 03/17/18 Stop Date: 03/20/18 Status: DiscontinuedhydrALAZINE 25 mg oral tablet 25 mg, 1 tab, Route: PO, Drug form: TAB, TID, Dosing Weight 100.455, kg, Start date: 03/17/18 17:00:00 CDT, Duration: 30 day, Stop date: 04/16/18 13:00:00 CDT Notes: (Same as: Apresoline) May interfere w/enteral feedings Take With Food. Start Date: 03/17/18 Stop Date: 03/17/18 Status: CanceledhydrALAZINE 25 mg oral tablet 25 mg=1 tab, PO, TID, # 270 tab, 1 Refill(s) Start Date: 03/17/18 Status: Orderedinsulin lispro 4 unit, 0.04 mL, Route: SUB-Q, Drug form: SOLN, TID-Before Meals, Dosing Weight 98.182, kg, PRN Blood Glucose Results, Start date: 03/17/18 6:49:00 CDT, Duration: 30 day, Stop date: 04/16/18 6:48:00 CDT Notes: (Same as: Humalog ) Roll in palms of hands gently; Do not shake ` vigorously. "Single PatientUse Only " WASTE: F/P - Black; E - Municipal Trash Bin Stable for 28 days at room temperature.Expires in days from Date Start Date: 03/17/18 Stop Date: 03/20/18 Status: Discontinuedinsulin lispro 5 unit, 0.05 mL, Route: SUB-Q, Drug form: SOLN, TID-Before Meals, Dosing Weight 98.182, kg, PRN Blood Glucose Results, Start date: 03/17/18 6:49:00 CDT, Duration: 30 day, Stop date: 04/16/18 6:48:00 CDT Notes: (Same as: Humalog ) Roll in palms of hands gently; Do not shake ` vigorously. "Single PatientUse Only " WASTE: F/P - Black; E - Municipal Trash Bin Stable for 28 days at room temperature.Expires in days from Date Start Date: 03/17/18 Stop Date: 03/20/18 Status: Discontinuedinsulin lispro 3 unit, 0.03 mL, Route: SUB-Q, Drug form: SOLN, TID-Before Meals, Dosing Weight 98.182, kg, PRN Blood Glucose Results, Start date: 03/17/18 6:49:00 CDT, Duration: 30 day, Stop date: 04/16/18 6:48:00 CDT Notes: (Same as: Humalog ) Roll in palms of hands gently; Do not shake ` vigorously. "Single PatientUse Only " WASTE: F/P - Black; E - Municipal Trash Bin Stable for 28 days at room temperature.Expires in days from Date Start Date: 03/17/18 Stop Date: 03/20/18 Status: Discontinuedinsulin lispro 1 unit, 0.01 mL, Route: SUB-Q, Drug form: SOLN, TID-Before Meals, Dosing Weight 98.182, kg, PRN Blood Glucose Results, Start date: 03/17/18 6:49:00 CDT, Duration: 30 day, Stop date: 04/16/18 6:48:00 CDT Notes: (Same as: Humalog ) Roll in palms of hands gently; Do not shake ` vigorously. "Single PatientUse Only " WASTE: F/P - Black; E - Municipal Trash Bin Stable for 28 days at room temperature.Expires in days from Date Start Date: 03/17/18 Stop Date: 03/20/18 Status: Discontinuedinsulin lispro 2 unit, 0.02 mL, Route: SUB-Q, Drug form: SOLN, TID-Before Meals, Dosing Weight 98.182, kg, PRN Blood Glucose Results, Start date: 03/17/18 6:49:00 CDT, Duration: 30 day, Stop date: 04/16/18 6:48:00 CDT Notes: (Same as: Humalog ) Roll in palms of hands gently; Do not shake ` vigorously. "Single PatientUse Only " WASTE: F/P - Black; E - Municipal Trash Bin Stable for 28 days at room temperature.Expires in days from Date Start Date: 03/17/18 Stop Date: 03/20/18 Status: Discontinuedinsulin lispro 2 unit, 0.02 mL, Route: SUB-Q, Drug form: SOLN, Bedtime, Dosing Weight 98.182, kg, PRN Blood GlucoseResults, Start date: 03/17/18 6:49:00 CDT, Duration: 30 day , Stop date: 04/16/18 6:48:00 CDT Notes: (Same as: Humalog ) Roll in palms of hands gently; Do not shake ` vigorously. "Single PatientUse Only " WASTE: F/P - Black; E - Municipal Trash Bin Stable for 28 days at room temperature.Expires in days from Date Start Date: 03/17/18 Stop Date: 03/20/18 Status: Discontinuedinsulin lispro 3 unit, 0.03 mL, Route: SUB-Q, Drug form: SOLN, Bedtime, Dosing Weight 98.182, kg, PRN Blood GlucoseResults, Start date: 03/17/18 6:49:00 CDT, Duration: 30 day , Stop date: 04/16/18 6:48:00 CDT Notes: (Same as: Humalog ) Roll in palms of hands gently; Do not shake ` vigorously. "Single PatientUse Only " WASTE: F/P - Black; E - Municipal Trash Bin Stable for 28 days at room temperature.Expires in days from Date Start Date: 03/17/18 Stop Date: 03/20/18 Status: Discontinuedinsulin lispro 4 unit, 0.04 mL, Route: SUB-Q, Drug form: SOLN, Bedtime, Dosing Weight 98.182, kg, PRN Blood GlucoseResults, Start date: 03/17/18 6:49:00 CDT, Duration: 30 day , Stop date: 04/16/18 6:48:00 CDT Notes: (Same as: Humalog ) Roll in palms of hands gently; Do not shake ` vigorously. "Single PatientUse Only " WASTE: F/P - Black; E - Municipal Trash Bin Stable for 28 days at room temperature.Expires in days from Date Start Date: 03/17/18 Stop Date: 03/20/18 Status: Discontinuedinsulin lispro 1 unit, 0.01 mL, Route: SUB-Q, Drug form: SOLN, Bedtime, Dosing Weight 98.182, kg, PRN Blood GlucoseResults, Start date: 03/17/18 6:49:00 CDT, Duration: 30 day , Stop date: 04/16/18 6:48:00 CDT Notes: (Same as: Humalog ) Roll in palms of hands gently; Do not shake ` vigorously. "Single PatientUse Only " WASTE: F/P - Black; E - Municipal Trash Bin Stable for 28 days at room temperature.Expires in days from Date Start Date: 03/17/18 Stop Date: 03/20/18 Status: DiscontinuedLasix 80 mg, 4 tab, Route: PO, Drug form: TAB, BID, Dosing Weight 100.455, kg, Start date: 03/17/18 17:00:00 CDT, Duration: 30 day, Stop date: 04/16/18 9:00:00 CDT Notes: (Same as: Lasix) May cause GI upset. Give with food or milk. Start Date: 03/17/18 Stop Date: 03/20/18 Status: DiscontinuedLasix 80 mg oral tablet 80 mg=1 tab, PO, BID, 0 Refill(s) Start Date: 03/17/18 Status: Orderedmannitol 12.5 gm, 50 mL, Route: IVPB, Drug form: INJ, ONCE, Dosing Weight 100.455, Start date: 03/17/18 7:41:00 CDT, Stop date: 03/17/18 7:41:00 CDT Notes: (Same as: Osmitrol) Infuse through 5 micron or smaller filter WASTE: F/ P - Sink; E - Municipal Trash Bin Start Date: 03/17/18 Stop Date: 03/17/18 Status: OrderedNorco 5/325 oral tablet 1 tab, Route: PO, Drug Form: TAB, Dosing Weight 100.455, kg, Q4H, PRN Pain Score 4-6, Start date: 03/17/18 15:10:00 CDT, Duration: 30 day, Stop date: 04/16 15:09:00 CDT Notes: (Same as: [place] 325/5) Do not exceed 4gm/day of acetaminophen. Start Date: 03/17/18 Stop Date: 03/20/18 Status: DiscontinuedPercocet 5/325 oral tablet 1 tab, Route: PO, Drug Form: TAB, Dosing Weight 100.455, kg, BID, Start date: 17:00:00 CDT,Duration: 30 day, Stop date: 04/17/18 9:00:00 CDT Notes: Do not exceed 4gm/day of acetaminophen. (Same as: Percocet-5/325) Start Date: 03/18/18 Stop Date: 03/18/18 Status: DeletedPercocet 5/325 oral tablet 1 tab, PO, BID, 0 Refill(s) Start Date: 03/17/18 Status: OrderedRoxicodone 5 mg, 1 tab, Route: PO, Drug form: TAB, BID, Start date: 03/18/18 18:00:00 CDT, Duration: 30 day, Stop date: 04/17/18 17:00:00 CDT Notes: (Same as: Roxicodone) Start Date: 03/18/18 Stop Date: 03/20/18 Status: DiscontinuedSaline Flush 0.9% 10 ml, Route: IVP, Drug Form: INJ, Dosing Weight 98.182, kg, PRN, PRN Line Flush , Start date: 03/17/18 6:53:00 CDT, Duration: 30 day, Stop date: 04/16/18 6:52: 00 CDT Notes: (Same as: BD Posiflush) Start Date: 03/17/18 Stop Date: 03/20/18 Status: DiscontinuedSaline Flush 0.9% 10 mL, Route: IVP, Drug Form: INJ, Dosing Weight 118.182, kg, PRN, PRN Line Flush, Start date: 03/17/18 2:36:00 CDT, Duration: 30 day, Stop date: 04/16/18 2 :35:00 CDT Notes: (Same as: BD Posiflush) Start Date: 03/17/18 Stop Date: 03/20/18 Status: DiscontinuedSodium Chloride 0.9% (Bolus) IV 2,000 mL, 2000 ml/hr, Infuse Over: 1 hr, Route: IV, 2,000, Drug form: INJ, ONCE , Priority: STAT, Dosing Weight 98.182 kg, Start date: 03/17/18 7:00:00 CDT, PRN Dialysis Start Date: 03/17/18 Stop Date: 03/20/18 Status: DiscontinuedSodium Chloride 0.9% IV 1,000 mL 1,000 mL, Rate: 2000, Route: IV, Dosing Weight 100.455 kg, Total Volume: 1,000, Start date: 189:14:00 CDT, Duration: 1 doses or times, Stop date: 9:13:00 CDT, 2.19, m2 Start Date: 03/19/18 Stop Date: 03/20/18 Status: Completedtamsulosin 0.4 mg, 1 cap, Route: PO, Drug form: CAP, Bedtime, Dosing Weight 100.455, kg, Start date: 03/17/18 21:00:00 CDT, Duration: 30 day, Stop date: 04/15/18 21:00: 00 CDT Notes: (Same As: Flomax) "Do Not Crush" Start Date: 03/17/18 Stop Date: 03/20/18 Status: Discontinuedtamsulosin 0.4 mg oral capsule 0.4 mg=1 cap, PO, Bedtime, 0 Refill(s) Start Date: 03/17/18 Status: OrderedTylenol 325 mg, 1 tab, Route: PO, Drug form: TAB, BID, Start date: 03/18/18 18:00:00 CDT , Duration: 30 day, Stop date: 04/17/18 17:00:00 CDT Notes: Do not exceed 4 gm/day. (Same as: Tylenol) Start Date: 03/18/18 Stop Date: 03/20/18 Status: Discontinuedvancomycin + Sodium Chloride 0.9% IV 100 mL 500 mg, Route: IVPB, ONCE, Start date: 03/19/18 13:00:00 CDT, Stop date: 13:00:00 CDT, ABX Indication: Other (specify in Comments) Notes: TIME CRITICAL MEDICATION(Same As: Vancocin)For adult patients only: Round to nearest 250 mg per Medical Staff approval Start Date: 03/19/18 Stop Date: 03/19/18 Status: Completedvancomycin + Sodium Chloride 0.9% IV 500 mL 2,000 mg, Route: IVPB, ONCE, Dosing Weight 98.182, kg, Priority: STAT, Start date: 03/17/18 5:49:00 CDT, Stop date: 03/17/18 5:49:00 CDT, ABX Indication: Pneumonia Notes: TIME CRITICAL MEDICATION(Same As: Vancocin)Infusion rate< 1000 mg: infuse over 1 [id number] - 1500 mg: infuse over 1.5 [id number] - 2000 mg: infuse over 2 hours> 2001 mg: infuse over 2.5 hoursFor adult patients only: Round to nearest 250 mg per Medical Staff approval MEDICATION WASTE Product Size: 1000 mgProduct Wasted: ___ mg Start Date: 03/17/18 Stop Date: 03/17/18 Status: CompletedVancomycin Pharmacy Dosing Route: MISC, Drug form: INJ, ONCALL, Dosing Weight 98.182, kg, Start date: 03/17 7:00:00 CDT, Duration: 7 day, Stop date: 03/24/18 6:59:00 CDT, Pharmacy to dose, ABX Indication: Pneumonia Notes: TIME CRITICAL MEDICATION(Same As: Vancocin)Infusion rate< 1000 mg: infuse over 1 [id number] - 1500 mg: infuse over 1.5 [id number] - 2000 mg: infuse over 2 hours> 2001 mg: infuse over 2.5 hoursFor adult patients only: Round to nearest 250 mg per Medical Staff approval MEDICATION WASTE Product Size: 1000 mgProduct Wasted: ___ mg Start Date: 03/17/18 Stop Date: 03/20/18 Status: DiscontinuedVancomycin Pharmacy Dosing + Sodium Chloride 0.9% IV 250 mL 500 mg, Route: IVPB, ONCE, Start date: 03/17/18 22:00:00 CDT, Stop date: 22:00:00 CDT, ABX Indication: Pneumonia Notes: TIME CRITICAL MEDICATION(Same As: Vancocin)Infusion rate< 1000 mg: infuse over 1 [id number] - 1500 mg: infuse over 1.5 [id number] - 2000 mg: infuse over 2 hours> 2001 mg: infuse over 2.5 hoursFor adult patients only: Round to nearest 250 mg per Medical Staff approval MEDICATION WASTE Product Size: 1000 mgProduct Wasted: ___ mg Start Date: 03/17/18 Stop Date: 03/17/18 Status: CompletedXanax 2 mg oral tablet 2 mg, 2 tab, Route: PO, Drug form: TAB, BID, Dosing Weight 100.455, kg, PRN as needed for anxiety, Start date: 03/17/18 23:20:00 CDT, Duration: 30 day, Stop date: 04/16/18 23:19:00 CDT Notes: With food or milk(Same as: Xanax) Start Date: 03/17/18 Stop Date: 03/20/18 Status: DiscontinuedZosyn + Sodium Chloride 0.9% IV 100 mL 4.5 gm, Route: IVPB, ONCE, Dosing Weight 98.182, kg, Priority: STAT, Start date : 03/17/18 5:49:00 CDT, Stop date: 03/17/18 5:49:00 CDT, ABX Indication: Pneumonia Notes: (Same as: Zosyn)Dosing based on Piperacillin component MEDICATION WASTE Product Size: 4500 mgProduct Wasted: ___ mg Start Date: 03/17/18 Stop Date: 03/17/18 Status: Completed Results ELECTROLYTES Most recent to oldest 1 2 3 [Reference Range]: Sodium Lvl [135-145 mEq/L] 131 mEq/L 133 mEq/L 130 mEq/L *LOW* *LOW* *LOW* (03/19/18 3:01 AM) (03/18/18 3:29 AM) (03/17/18 3:09 AM) Potassium Lvl [3.5-5.1 mEq/L] 4.3 mEq/L 4.0 mEq/L 4.4 mEq/L (03/19/18 3:01 AM) (03/18/18 3:29 AM) (03/17/18 3:09 AM) Chloride Lvl [95-109 mEq/L] 94 mEq/L 97 mEq/L 93 mEq/L *LOW* (03/18/18 3:29 AM) *LOW* (03/19/18 3:01 AM) (03/17/18 3:09 AM) CO2 [24-32 mEq/L] 24 mEq/L 26 mEq/L 21 mEq/L (03/19/18 3:01 AM) (03/18/18 3:29 AM) *LOW* (03/17/18 3:09 AM) AGAP [10.0-20.0 mEq/L] 17.3 mEq/L 14.0 mEq/L 20.4 mEq/L (03/19/18 3:01 AM) (03/18/18 3:29 AM) *HI* (03/17/18 3:09 AM) CHEM PANEL Most recent to oldest 1 2 3 [Reference Range]: Creatinine Lvl [0.50-1.40 9.62 mg/dL 8.40 mg/dL 12.50 mg/dL mg/dL] *HI* *HI* *HI* (03/19/18 3:01 AM) (03/18/18 3:29 AM) (03/17/18 3:09 AM) eGFR 5 mL/min/1.73m2 1 6 mL/min/1.73m2 2 4 mL/min/1.73m2 3 *NA* *NA* *NA* (03/19/18 3:01 AM) (03/18/18 3:29 AM) (03/17/18 3:09 AM) BUN [7-22 mg/dL] 55 mg/dL 50 mg/dL 85 mg/dL *HI* *HI* *HI* (03/19/18 3:01 AM) (03/18/18 3:29 AM) (03/17/18 3:09 AM) B/C Ratio [6-25] 6 7 (03/18/18 3:29 AM) (03/17/18 3:09 AM) Glucose Lvl [70-99 mg/dL] 120 mg/dL 105 mg/dL 172 mg/dL *HI* *HI* *HI* (03/19/18 3:01 AM) (03/18/18 3:29 AM) (03/17/18 3:09 AM) Total Protein [6.4-8.4 g/dL] 6.9 g/dL 6.8 g/dL (03/18/18 3:29 AM) (03/17/18 3:09 AM) Albumin Lvl [3.5-5.0 g/dL] 2.7 g/dL 2.7 g/dL *LOW* *LOW* (03/18/18 3:29 AM) (03/17/18 3:09 AM) Globulin [2.7-4.2 g/dL] 4.2 g/dL 4.1 g/dL (03/18/18 3:29 AM) (03/17/18 3:09 AM) A/G Ratio [0.7-1.6] 0.6 0.7 *LOW* (03/17/18 3:09 AM) (03/18/18 3:29 AM) Calcium Lvl [8.5-10.5 mg/dL] 8.3 mg/dL 8.0 mg/dL 7.5 mg/dL *LOW* *LOW* *LOW* (03/19/18 3:01 AM) (03/18/18 3:29 AM) (03/17/18 3:09 AM) Phosphorus [2.5-4.5 mg/dL] 5.6 mg/dL 5.7 mg/dL 7.5 mg/dL *HI* *HI* *HI* (03/19/18 3:01 AM) (03/18/18 3:29 AM) (03/17/18 3:09 AM) Magnesium Lvl [1.8-2.4 mg/dL] 2.1 mg/dL 2.3 mg/dL 1.9 mg/dL (03/19/18 3:01 AM) (03/18/18 3:29 AM) (03/17/18 3:09 AM) ALT [0-65 unit/L] 12 unit/L 10 unit/L (03/18/18 3:29 AM) (03/17/18 3:09 AM) AST [0-37 unit/L] 9 unit/L 11 unit/L (03/18/18 3:29 AM) (03/17/18 3:09 AM) Alk Phos [39-136 unit/L] 104 unit/L 89 unit/L (03/18/18 3:29 AM) (03/17/18 3:09 AM) Bili Total [0.2-1.3 mg/dL] 0.4 mg/dL 0.4 mg/dL (03/18/18 3:29 AM) (03/17/18 3:09 AM) Lipase Lvl [73-393 unit/L] 65 unit/L *LOW* (03/17/18 3:09 AM) Ammonia [<=45.0 uMol/L] 33.0 uMol/L (03/17/18 3:09 AM) Lactic Acid Lvl [0.5-2.2 0.3 mMol/L 0.3 mMol/L mMol/L] *LOW* *LOW* (03/17/18 8:00 AM) (03/17/18 6:05 AM) 1Result Comment: The eGFR is calculated [...] eGFR should be multiplied by the estimated BMI.CARDIAC ENZYMES Most recent to oldest [Reference Range]: 1 2 3 Total CK [12-191 unit/L] 122 unit/L (03/17/18 3:09 AM) CK MB [0.5-3.6 ng/mL] 1.5 ng/mL (03/17/18 3:09 AM) CK MB Index [0.0-2.5] 1.2 (03/17/18 3:09 AM) Troponin-I [0.00-0.40 ng/mL] <0.02 ng/mL (03/17/18 3:09 AM) proBNP [0-125 pg/mL] 24924 pg/mL *HI* (03/17/18 3:09 AM) TOXICOLOGY Most recent to oldest [Reference Range]: 1 2 3 Vanco Lvl 17.4 ug/ml 18.3 ug/ml *NA* *NA* (03/19/18 7:10 AM) (03/17/18 4:57 PM) IMMUNOLOGY Most recent to oldest [Reference Range]: 1 2 3 Hep Bs Ag [Negative] Negative *NA* (03/17/18 8:00 AM) HEMATOLOGY Most recent to oldest 1 2 3 [Reference Range]: WBC [3.7-10.4 K/CMM] 8.2 K/CMM 7.1 K/CMM 9.0 K/CMM (03/19/18 3:01 AM) (03/18/18 3:29 AM) (03/17/18 3:09 AM) RBC [4.70-6.10 M/CMM] 2.99 M/CMM 2.80 M/CMM 2.86 M/CMM *LOW* *LOW* *LOW* (03/19/18 3:01 AM) (03/18/18 3:29 AM) (03/17/18 3:09 AM) Hgb [14.0-18.0 g/dL] 7.9 g/dL 7.4 g/dL 7.5 g/dL *LOW* *LOW* *LOW* (03/19/18 3:01 AM) (03/18/18 3:29 AM) (03/17/18 3:09 AM) Hct [42.0-54.0 %] 23.1 % 21.8 % 22.2 % *LOW* *LOW* *LOW* (03/19/18 3:01 AM) (03/18/18 3:29 AM) (03/17/18 3:09 AM) MCV [80.0-94.0 fL] 77.1 fL 77.9 fL 77.8 fL *LOW* *LOW* *LOW* (03/19/18 3:01 AM) (03/18/18 3:29 AM) (03/17/18 3:09 AM) MCH [27.0-31.0 pg] 26.4 pg 26.3 pg 26.4 pg *LOW* *LOW* *LOW* (03/19/18 3:01 AM) (03/18/18 3:29 AM) (03/17/18 3:09 AM) MCHC [32.0-36.0 g/dL] 34.2 g/dL 33.8 g/dL 34.0 g/dL (03/19/18 3:01 AM) (03/18/18 3:29 AM) (03/17/18 3:09 AM) RDW [11.5-14.5 %] 15.4 % 15.0 % 15.1 % *HI* *HI* *HI* (03/19/18 3:01 AM) (03/18/18 3:29 AM) (03/17/18 3:09 AM) MPV [7.4-10.4 fL] 7.9 fL 7.9 fL 7.4 fL (03/19/18 3:01 AM) (03/18/18 3:29 AM) (03/17/18 3:09 AM) Platelet [133-450 K/CMM] 240 K/CMM 217 K/CMM 220 K/CMM (03/19/18 3:01 AM) (03/18/18 3:29 AM) (03/17/18 3:09 AM) Segs [45.0-75.0 %] 78.7 % 70.7 % 82.0 % *HI* (03/18/18 3:29 AM) *HI* (03/19/18 3:01 AM) (03/17/18 3:09 AM) Lymphocytes [20.0-40.0 %] 8.8 % 13.3 % 7.7 % *LOW* *LOW* *LOW* (03/19/18 3:01 AM) (03/18/18 3:29 AM) (03/17/18 3:09 AM) Monocytes [2.0-12.0 %] 10.9 % 13.9 % 9.3 % (03/19/18 3:01 AM) *HI* (03/17/18 3:09 AM) (03/18/18 3:29 AM) Eosinophils [0.0-4.0 %] 1.3 % 1.6 % 0.5 % (03/19/18 3:01 AM) (03/18/18 3:29 AM) (03/17/18 3:09 AM) Basophils [0.0-1.0 %] 0.3 % 0.5 % 0.5 % (03/19/18 3:01 AM) (03/18/18 3:29 AM) (03/17/18 3:09 AM) Segs-Bands # [1.5-8.1 K/CMM] 6.5 K/CMM 5.0 K/CMM 7.4 K/CMM (03/19/18 3:01 AM) (03/18/18 3:29 AM) (03/17/18 3:09 AM) Lymphocytes # [1.0-5.5 K/CMM] 0.7 K/CMM 0.9 K/CMM 0.7 K/CMM *LOW* *LOW* *LOW* (03/19/18 3:01 AM) (03/18/18 3:29 AM) (03/17/18 3:09 AM) Monocytes # [0.0-0.8 K/CMM] 0.9 K/CMM 1.0 K/CMM 0.8 K/CMM *HI* *HI* (03/17/18 3:09 AM) (03/19/18 3:01 AM) (03/18/18 3:29 AM) Eosinophils # [0.0-0.5 K/CMM] 0.1 K/CMM 0.1 K/CMM (03/19/18 3:01 AM) (03/18/18 3:29 AM) Microcyte [None Seen] 1+ 1+ 1+ *ABN* *ABN* *ABN* (03/19/18 3:01 AM) (03/18/18 3:29 AM) (03/17/18 3:09 AM) PT [12.0-14.7 seconds] 15.6 seconds 15.9 seconds *HI* *HI* (03/18/18 3:29 AM) (03/17/18 3:09 AM) INR [0.85-1.17] 1.23 1.26 *HI* *HI* (03/18/18 3:29 AM) (03/17/18 3:09 AM) PTT [22.9-35.8 seconds] 42.0 seconds *HI* (03/18/18 3:29 AM) Immunizations Given and Recorded Vaccine Date Status Refusal Reason pneumococcal 13-valent vaccine 03/20/18 Given Procedures Procedure Date Related Diagnosis Body Site Status Knee maneuver Completed Shoulder manipulation Completed Social History Social History Type Response Substance Abuse Use: None. Alcohol Past, Frequency: 1-2 times per week. Smoking Status Never smoker; Exposure to Tobacco Smoke None; Cigarette Smoking Last 365 Days No; Reg Smoking Cessation Counseling No entered on: 03/17/18 Assessment and Plan Extracted from: Title: UIP Progress Note * Author: Leeann Sumner MD Date: 03/20/18 Impression and Plan ASSESSMENT: Sepsis 2/2 PNA Acute Hypoxemic Respiratory Failure 2/2 PNA/Fluid Overload Fluid OVerload from missed HD ESRD on HD TTS AOCD HTN HLD Hyponatremia DM2 PLAN: HD per Nephro recs Vanco/Cefepime f/u Blood Cultures Nephro cx appreciated Insulin SS Norvasc/Coreg Chest CTA results above DVT PPX: Heparin SQ Dispo: cont current mgmt; dc home today; no changes to dc summary from yesterday; MRI Brain normal Extracted from: Title: Discharge Summary * Author: Leeann Sumner MD Date: 03/19/18 Discharge Plan Discharge Summary Plan Discharge Status: improved. Discharge instructions given: to patient. Discharge disposition: discharge to home self care. Prescriptions: continue same medications, written and given to patient. Diagnosis HAP (hospital-acquired pneumonia) ([id number] J18.9, Working, Medical). Fluid overload ([id number] E87.70, Working, Medical). HTN (hypertension) ([id number] I10, Working, Medical). ESRD on dialysis ([id number]-OG N18.6, Working, Medical). Acute dyspnea ([id number]-BA R06.00, Working, Medical). Course Improving. Education and Follow-up Counseled: patient. Extracted from: Title: General Admission H&P * Author: Nick Desir Date : 03/17/18 Impression and Plan 57-year-old male with history of hypertension, diabetes, end-stage renal disease on hemodialysis, presented to emergency room complaining of shortness of breath. 1. Fever. Blood culture. Etiology not clear. Probable early community- acquired pneumonia. Chest x-ray shows atelectasis or infiltration in the left base with an associated small left pleural effusion. Differential include line Infection. Blood culture. Empiric treatment with cefepime and vancomycin. A chest CT, evaluate for pneumonia. Brain CT since patient is lethargic. 2. Fluid overload/acute CHF, after missing hemodialysis. Acute hemodialysis is requested. 3. End-stage renal disease on hemodialysis, access tunneled hemodialysis catheter, hemodialysis on Monday and Monday. Last hemodialysis last Monday. Patient being followed by me in [facility]. 3. Hypertension, blood pressure low normal. 4. Diabetes mellitus type 2. Accu-Chek insulin sliding scale. 5. Chronic anemia. Resume Epogen. 6. Secondary hyperparathyroidism. 7. DVT prophylaxis. Heparin subcutaneous.
--- OUTSIDE RECORDS SUMMARY | 2019-02-21 15:03 | XMS REPORT | Summary of Care ---
:1960 Author Organization [facility] Address [address] [place] [address]- Encounter HQ Jose Angel(FIN) [phone] Date(s): 12/15/17 - 12/20/[address] [phone] Encounter Diagnosis Hypertensive heart disease with heart failure (Final) - 12/27/17 Acute kidney failure, unspecified (Final) - Hypocalcemia (Final) - Other disorders of phosphorus metabolism (Final) - Hypo-osmolality and hyponatremia (Final) - Hyperkalemia (Final) - Type 2 diabetes mellitus without complications (Final) - Iron deficiency anemia, unspecified (Final) - Secondary hyperparathyroidism of renal origin (Final) - Acute diastolic (congestive) heart failure (Final) - Anemia in other chronic diseases classified elsewhere (Final) - Atherosclerosis of renal artery (Final) - Obstructive sleep apnea (adult) (pediatric) (Final) - Discharge Disposition: Home or Self Care Attending Physician: Redd Moses DO Admitting Physician: Redd Moses DO Vital Signs Most recent to oldest 1 2 3 [Reference Range]: Height 170.18 cm 170.18 cm (12/15/17 10:46 AM) (12/15/17 10:11 AM) Current Weight 109.091 kg (12/15/17 10:11 AM) Temperature Oral [96.4-99.1 98.0 DegF 98 DegF 97.6 DegF DegF] (12/20/17 7:31 AM) (12/20/17 12:00 AM) (12/19/17 8:00 PM) Blood Pressure [90-140/60-90 151/80 mmHg 152/84 mmHg 150/71 mmHg mmHg] *HI* *HI* *HI* (12/20/17 7:31 AM) (12/20/17 12:00 AM) (12/19/17 8:00 PM) Respiratory Rate [14-20 BRMIN] 18 BRMIN 18 BRMIN 18 BRMIN (12/20/17 7:31 AM) (12/20/17 12:00 AM) (12/19/17 8:00 PM) Peripheral Pulse Rate [60-100 77 bpm 69 bpm 70 bpm bpm] (12/20/17 7:31 AM) (12/20/17 12:00 AM) (12/19/17 8:00 PM) Weight 109.091 kg 90.909 kg (12/15/17 10:46 AM) (12/15/17 5:31 AM) Body Mass Index 37.67 m2 (12/15/17 10:46 AM) Problem List No data available for this section Allergies, Adverse Reactions, Alerts Substance Reaction Severity Status NKDA Active Medications acetaminophen 650 mg, 2 tab, Route: PO, Drug form: TAB, Q4H, Dosing Weight 90.909, kg, PRN Pain 1-3/Temp > 100.4 F, Start date: 12/15/17 8:31:00 DETAILER, Duration: 30 day, Stop date: 01/14/18 8:30:00 CDT Notes: Do not exceed 4 gm/day. (Same as: Tylenol) Start Date: 12/15/17 Stop Date: 12/20/17 Status: Discontinuedacetaminophen-hydrocodone 325 mg-5 mg oral tablet 1 tab, Route: PO, Drug Form: TAB, Dosing Weight 90.909, kg, Q4H, PRN Pain Score 4-6, Start date: 12/15/17 8:31:00 DETAILER, Duration: 30 day, Stop date: 01/14/18 8: 30:00 CDT Notes: (Same as: [place] 325/5) Do not exceed 4gm/day of acetaminophen. Start Date: 12/15/17 Stop Date: 12/20/17 Status: DiscontinuedamLODIPine 10 mg, 2 tab, Route: PO, Drug form: TAB, Daily, Dosing Weight 109.091, kg, Start date: 12/16/17 9:00:00 DETAILER, Duration: 30 day, Stop date: 01/14/18 9:00:00 CDT Notes: (Same as: Norvasc) Start Date: 12/16/17 Stop Date: 12/20/17 Status: DiscontinuedamLODIPine 5 mg oral tablet 10 mg=2 tab, PO, Daily, # 60 tab, 0 Refill(s), Pharmacy: [id number] Start Date: 12/20/17 Stop Date: 03/17/18 Status: Completedcalcitriol 0.25 microgram, 1 cap, Route: PO, Drug form: CAP, Daily, Dosing Weight 90.909, kg, Start date: 12/15/17 10:06:00 DETAILER, Duration: 30 day, Stop date: 01/14/18 9: 00:00 CDT Notes: (Same As: Rocaltrol) Start Date: 12/15/17 Stop Date: 12/20/17 Status: Discontinuedcalcitriol 0.5 mcg oral capsule 0.5 microgram=1 cap, PO, Daily, # 30 cap, 0 Refill(s), Pharmacy: [id number] Start Date: 12/20/17 Stop Date: 03/17/18 Status: Completedcalcium carbonate 2,000 mg, 4 tab, Route: PO, Drug form: CHEWTAB, TID, Dosing Weight 90.909, kg, Start date: 12/18/17 13:00:00 CDT, Duration: 30 day, Stop date: 01/17/18 9:00: 00 CDT Notes: (Same As: [place])Calcium Carbonate 500 ks=583 mg elemental calcium Dose=_ mg calcium carbonate ( mg elemental calcium) Start Date: 12/18/17 Stop Date: 12/20/17 Status: Discontinuedcalcium carbonate 1,500 mg, 3 tab, Route: PO, Drug form: CHEWTAB, TID, Dosing Weight 90.909, kg, Start date: 12/15/17 10:06:00 DETAILER, Duration: 30 day, Stop date: 01/14/18 9:00: 00 CDT Notes: (Same As: [place])Calcium Carbonate 500 bd=642 mg elemental calcium Dose=_ mg calcium carbonate ( mg elemental calcium) Start Date: 12/15/17 Stop Date: 12/18/17 Status: Discontinuedcalcium carbonate 500 mg (200 mg elemental calcium) oral tablet 2,000 mg=4 tab, PO, TID, # 168 tab, 0 Refill(s), Pharmacy: [id number] Start Date: 12/20/17 Stop Date: 03/17/18 Status: Completedcalcium gluconate + Sodium Chloride 0.9% IV 100 mL 2,000 mg, 20 mL, Route: IV, ONCE, Dosing Weight 109.091, kg, Start date: 6:50:00 CDT, Stop date: 12/20/17 6:50:00 CDT Notes: WASTE: F/P - Sink; E - Municipal Trash Bin Start Date: 12/20/17 Stop Date: 12/24/17 Status: Discontinuedcalcium gluconate + Sodium Chloride 0.9% IV 100 mL 2,000 mg, 20 mL, Route: IVPB, ONCE, Dosing Weight 109.091, kg, Start date: 12/15 17:43:00 DETAILER, Stop date: 12/15/17 17:43:00 DETAILER Notes: WASTE: F/P - Sink; E - Municipal Trash Bin Start Date: 12/15/17 Stop Date: 12/15/17 Status: Completedcalcium gluconate + Sodium Chloride 0.9% IV 100 mL 2,000 mg, 20 mL, Route: IVPB, ONCE, Dosing Weight 109.091, kg, Priority: STAT, Start date: 12/18/17 5:53:00 CDT, Stop date: 12/18/17 5:53:00 CDT Notes: WASTE: F/P - Sink; E - Municipal Trash Bin Start Date: 12/18/17 Stop Date: 12/18/17 Status: Completedcalcium gluconate + Sodium Chloride 0.9% IV 100 mL 2,000 mg, 20 mL, Route: IVPB, ONCE, Dosing Weight 109.091, kg, Start date: 12/17 6:35:00 CDT, Stop date: 12/17/17 6:35:00 CDT Notes: WASTE: F/P - Sink; E - Municipal Trash Bin Start Date: 12/17/17 Stop Date: 12/17/17 Status: Completedcalcium gluconate + Sodium Chloride 0.9% IV 100 mL 2,000 mg, 20 mL, Route: IVPB, ONCE, Dosing Weight 109.091, kg, Start date: 12/17 23:35:00 CDT, Stop date: 12/17/17 23:35:00 CDT Notes: WASTE: F/P - Sink; E - Municipal Trash Bin Start Date: 12/17/17 Stop Date: 12/18/17 Status: Completedcalcium gluconate + Sodium Chloride 0.9% IV 50 mL 1,000 mg, 10 mL, Route: IVPB, ONCE, Dosing Weight 109.091, kg, Start date: 12/19 6:39:00 CDT, Stop date: 12/19/17 6:39:00 CDT Notes: WASTE: F/P - Sink; E - Municipal Trash Bin Start Date: 12/19/17 Stop Date: 12/19/17 Status: Completedcalcium gluconate + Sodium Chloride 0.9% IV 80 mL 2,000 mg, 20 mL, Route: IVPB, ONCE, Dosing Weight 109.091, kg, Start date: 12/18 15:44:00 CDT, Stop date: 12/18/17 15:44:00 CDT Notes: WASTE: F/P - Sink; E - Municipal Trash Bin Start Date: 12/18/17 Stop Date: 12/18/17 Status: Completedcarvedilol 3.125 mg oral tablet 3.125 mg=1 tab, PO, Q12H, # 60 tab, 0 Refill(s), Pharmacy: [id number] Start Date: 12/20/17 Stop Date: 03/17/18 Status: CompletedCoreg 3.125 mg, 1 tab, Route: PO, Drug form: TAB, Q12H, Dosing Weight 109.091, kg, Start date: 12/19/17 21:00:00 CDT, Duration: 30 day, Stop date: 01/18/18 9:00: 00 CDT Notes: Give with food. (Same As: Coreg) Start Date: 12/19/17 Stop Date: 12/20/17 Status: DiscontinuedDilaudid 1 mg, 0.5 tab, Route: PO, Drug form: TAB, Q4H, Dosing Weight 109.091, kg, PRN Pain Score 7-10, Startdate: 12/15/17 15:38:00 DETAILER, Duration: 30 day, Stop date: 01/14/18 15:37:00 CDT Notes: (Same as: Dilaudid) Start Date: 12/15/17 Stop Date: 12/20/17 Status: Discontinuedergocalciferol 50,000 intl units oral capsule 50,000 IntlUnit=1 cap, PO, qWeek, # 5 cap, 0 Refill(s), Pharmacy: [id number] Start Date: 12/20/17 Stop Date: 01/22/18 Status: OrderedKayexalate 30 gm, 120 mL, Route: PO, Drug form: SUSP, ONCE, Dosing Weight 109.091, kg, Start date: 12/16/17 19:11:00 DETAILER, Stop date: 12/16/17 19:11:00 DETAILER Notes: (sodium polystyrene sulfonate 15 gm/60 ml CANDACE) Shake well before use. (Same as: Kayexalate, SPS) Start Date: 12/16/17 Stop Date: 12/16/17 Status: CompletedKayexalate 30 gm, 120 mL, Route: PO, Drug form: SUSP, ONCE, Dosing Weight 109.091, kg, Start date: 12/16/17 7:38:00 DETAILER, Stop date: 12/16/17 7:38:00 DETAILER Notes: (sodium polystyrene sulfonate 15 gm/60 ml CANDACE) Shake well before use. (Same as: Kayexalate, SPS) Start Date: 12/16/17 Stop Date: 12/16/17 Status: CompletedLasix 80 mg, 8 mL, Route: IV, Drug form: INJ, Daily, Dosing Weight 109.091, kg, Start date: 12/19/17 9:00:00 CDT, Stop date: 01/15/18 9:00:00 CDT Notes: (Same as: Lasix) MEDICATION WASTE Product Size: 40 mgProduct Wasted: ___ mg Start Date: 12/19/17 Stop Date: 12/20/17 Status: DiscontinuedLasix 80 mg, 8 mL, Route: IV, Drug form: INJ, Q12H, Dosing Weight 109.091, kg, Start date: 12/17/17 9:00:00 CDT, Stop date: 01/15/18 9:00:00 CDT Notes: (Same as: Lasix) MEDICATION WASTE Product Size: 40 mgProduct Wasted: ___ mg Start Date: 12/17/17 Stop Date: 12/18/17 Status: DiscontinuedLasix 80 mg, 8 mL, Route: IV, Drug form: INJ, Q8H, Dosing Weight 109.091, kg, Start date: 12/15/17 4:45:00CST, Stop date: 01/15/18 16:45:00 CDT Notes: (Same as: Lasix) MEDICATION WASTE Product Size: 40 mgProduct Wasted: ___ mg Start Date: 12/15/17 Stop Date: 12/17/17 Status: DiscontinuedLasix 80 mg, 2 tab, Route: PO, Drug form: TAB, Daily, Dosing Weight 109.091, kg, Start date: 12/21/17 9:00:00 CDT, Stop date: 01/15/18 9:00:00 CDT Notes: (Same as: Lasix) May cause GI upset. Give with food or milk. Start Date: 12/21/17 Stop Date: 12/20/17 Status: CanceledLasix 80 mg oral tablet 80 mg, PO, Daily, # 30 ea, 0 Refill(s), Pharmacy: [id number] Start Date: 12/20/17 Stop Date: 03/17/18 Status: Completedlisinopril 20 mg oral tablet 20 mg=1 tab, PO, Daily, 0 Refill(s) Start Date: 12/15/17 Stop Date: 12/20/17 Status: DiscontinuedLotrel 10 mg-20 mg oral capsule 1 cap, PO, TID, 0 Refill(s) Start Date: 12/15/17 Stop Date: 12/20/17 Status: Discontinuedmorphine Sulfate 6 mg, 3 mL, Route: PO, Drug form: SOLN, Q4H, Dosing Weight 109.091, kg, PRN Pain Score 7-10, Start date: 12/15/17 13:02:00 DETAILER, Duration: 30 day, Stop date : 01/14/18 13:01:00 CDT Notes: (Same as:MORPhine Sulfate) Start Date: 12/15/17 Stop Date: 12/15/17 Status: Discontinuedondansetron 4 mg, 2 mL, Route: IVP, Drug form: INJ, Q6H, Dosing Weight 90.909, kg, PRN Nausea & Vomiting, Start date: 12/15/17 8:31:00 DETAILER, Duration: 30 day, Stop date: 01/14/18 8:30:00 CDT Notes: (Same as: Ed) MEDICATION WASTE Product Size: 4 mgProduct Wasted: ___ mg Start Date: 12/15/17 Stop Date: 12/20/17 Status: DiscontinuedRenagel 2,400 mg, 3 tab, Route: PO, Drug form: TAB, TID-Meals, Dosing Weight 109.091, kg , Start date: 12/17/17 12:00:00 CDT, Duration: 30 day, Stop date: 01/16/18 8:00: 00 CDT Notes: Same as: Renvela Start Date: 12/17/17 Stop Date: 12/20/17 Status: DiscontinuedSaline Flush 0.9% 10 mL, Route: IVP, Drug Form: INJ, Dosing Weight 90.909, kg, PRN, PRN Line Flush , Start date: 12/15/17 6:30:00 DETAILER, Duration: 30 day, Stop date: 01/14/18 7:29: 00 CDT Notes: (Same as: BD Posiflush) Start Date: 12/15/17 Stop Date: 12/20/17 Status: Discontinuedsevelamer carbonate 800 mg oral tablet 2,400 mg=3 tab, PO, TID-Meals, # 270 tab, 0 Refill(s), Pharmacy: [id number] Start Date: 12/20/17 Stop Date: 03/17/18 Status: Completedsodium bicarbonate 8.4% 50 mEq, 50 ml, Route: IVP, Drug Form: INJ, Dosing Weight 109.091, kg, ONCE, Start date: 12/16/17 19:11:00 DETAILER, Stop date: 12/16/17 19:11:00 DETAILER Notes: (sodium bicarb 8.4% (1 mEq/ml) 50 ml syringe) Start Date: 12/16/17 Stop Date: 12/16/17 Status: CompletedTylenol with Codeine #4 oral tablet 2 tabs, PO, BID, 0 Refill(s) Start Date: 12/15/17 Stop Date: 03/17/18 Status: CompletedVenofer + Sodium Chloride 0.9% IV 90 mL 200 mg, 10 mL, Route: IVPB, Daily, Dosing Weight 109.091, kg, Start date: 9:00:00 CDT, Duration: 5 doses or times, Stop date: 12/21/17 9:00:00 CDT Notes: Each 5ml contains 100mg elemental iron. Mix with NSNon-Formulary(Same as :Venofer)Administer IV only. MEDICATION WASTE Product Size: 100 mgProduct Wasted: ___ mg Start Date: 12/17/17 Stop Date: 12/20/17 Status: DiscontinuedVitamin D2 50,000 IntlUnit, 1 cap, Route: PO, Drug form: CAP, qWeek, Dosing Weight 109.091 , kg, Start date: 12/19/17 9:00:00 CDT, Duration: 30 day, Stop date: 01/16/18 9: 00:00 CDT Notes: (Same as: Vitamin D) "Do Not Crush" Start Date: 12/19/17 Stop Date: 12/20/17 Status: DiscontinuedXanax 2 mg oral tablet 2 mg=1 tab, PO, BID, PRN as needed for anxiety, 0 Refill(s) Start Date: 12/15/17 Status: Ordered Results ELECTROLYTES Most recent to oldest 1 2 3 [Reference Range]: Sodium Lvl [135-145 mEq/L] 133 mEq/L 135 mEq/L 138 mEq/L *LOW* (12/19/17 7:14 AM) (12/19/17 5:02 AM) (12/20/17 5:09 AM) Potassium Lvl [3.5-5.1 3.7 mEq/L 3.6 mEq/L 3.6 mEq/L mEq/L] (12/20/17 5:09 AM) (12/19/17 7:14 AM) (12/19/17 5:02 AM) Chloride Lvl [95-109 mEq/L] 94 mEq/L 95 mEq/L 96 mEq/L *LOW* (12/19/17 7:14 AM) (12/19/17 5:02 AM) (12/20/17 5:09 AM) CO2 [24-32 mEq/L] 27 mEq/L 29 mEq/L 27 mEq/L (12/20/17 5:09 AM) (12/19/17 7:14 AM) (12/19/17 5:02 AM) AGAP [10.0-20.0 mEq/L] 15.7 mEq/L 14.6 mEq/L 18.6 mEq/L (12/20/17 5:09 AM) (12/19/17 7:14 AM) (12/19/17 5:02 AM) CHEM PANEL Most recent to oldest 1 2 3 [Reference Range]: Creatinine Lvl [0.50-1.40 11.60 mg/dL 11.70 mg/dL 11.80 mg/dL mg/dL] *HI* *HI* *HI* (12/20/17 5:09 AM) (12/19/17 7:14 AM) (12/19/17 5:02 AM) eGFR 4 mL/min/1.73m2 1 4 mL/min/1.73m2 2 4 mL/min/1.73m2 3 *NA* *NA* *NA* (12/20/17 5:09 AM) (12/19/17 7:14 AM) (12/19/17 5:02 AM) BUN [7-22 mg/dL] 104 mg/dL 103 mg/dL 97 mg/dL *HI* *HI* *HI* (12/20/17 5:09 AM) (12/19/17 7:14 AM) (12/19/17 5:02 AM) B/C Ratio [6-25] 9 9 9 (12/19/17 7:14 AM) (12/15/17 2:12 PM) (12/15/17 6:48 AM) Glucose Lvl [70-99 mg/dL] 85 mg/dL 88 mg/dL 92 mg/dL (12/20/17 5:09 AM) (12/19/17 7:14 AM) (12/19/17 5:02 AM) Total Protein [6.4-8.4 g/dL] 6.2 g/dL 7.4 g/dL 7.0 g/dL *LOW* (12/15/17 2:12 PM) (12/15/17 6:48 AM) (12/19/17 7:14 AM) Albumin Lvl [3.5-5.0 g/dL] 2.7 g/dL 3.4 g/dL 3.1 g/dL *LOW* *LOW* *LOW* (12/19/17 7:14 AM) (12/15/17 2:12 PM) (12/15/17 6:48 AM) Globulin [2.7-4.2 g/dL] 3.5 g/dL 4.0 g/dL 3.9 g/dL (12/19/17 7:14 AM) (12/15/17 2:12 PM) (12/15/17 6:48 AM) A/G Ratio [0.7-1.6] 0.8 0.8 0.8 (12/19/17 7:14 AM) (12/15/17 2:12 PM) (12/15/17 6:48 AM) Calcium Lvl [8.5-10.5 mg/dL] 6.9 mg/dL 4 6.5 mg/dL 5 6.8 mg/dL 6 *CRIT* *CRIT* *CRIT* (12/20/17 5:09 AM) (12/19/17 7:14 AM) (12/19/17 5:02 AM) Phosphorus [2.5-4.5 mg/dL] 8.2 mg/dL 8.8 mg/dL >13.5 mg/dL *HI* *HI* *ABN* (12/19/17 7:14 AM) (12/18/17 4:55 AM) (12/15/17 2:12 PM) Magnesium Lvl [1.8-2.4 1.8 mg/dL 1.8 mg/dL 1.9 mg/dL mg/dL] (12/20/17 5:09 AM) (12/19/17 5:02 AM) (12/18/17 4:55 AM) ALT [0-65 unit/L] 10 unit/L 14 unit/L 15 unit/L (12/19/17 7:14 AM) (12/15/17 2:12 PM) (12/15/17 6:48 AM) AST [0-37 unit/L] 9 unit/L 17 unit/L 13 unit/L (12/19/17 7:14 AM) (12/15/17 2:12 PM) (12/15/17 6:48 AM) Alk Phos [39-136 unit/L] 100 unit/L 115 unit/L 108 unit/L (12/19/17 7:14 AM) (12/15/17 2:12 PM) (12/15/17 6:48 AM) Bili Total [0.2-1.3 mg/dL] 0.3 mg/dL 0.4 mg/dL 0.4 mg/dL (12/19/17 7:14 AM) (12/15/17 2:12 PM) (12/15/17 6:48 AM) Vitamin D, 25-OH, Total 12.3 ng/mL [30.0-100.0 ng/mL] *LOW* (12/15/17 4:29 PM) 1Result Comment: The eGFR is calculated [...] eGFR should be multiplied by the estimated BMI.4Result Comment: Critical Result(s) called to Dora Trujillo RN at 12/20/2017 06:37 byCH. Read back OK.5Result Comment: Critical Result(s) called to Anita Toure at 12/19/2017 07:51 by gp. Read back OK.6Result Comment: Critical Result(s) called to Isabel Carreon at 0623_ by_JJ. Read back OK.CARDIAC ENZYMES Most recent to oldest 1 2 3 [Reference Range]: Total CK [12-191 unit/L] 380 unit/L 350 unit/L 357 unit/L *HI* *HI* *HI* (12/15/17 2:12 PM) (12/15/17 10:39 AM) (12/15/17 6:48 AM) CK MB [0.5-3.6 ng/mL] 5.4 ng/mL 4.8 ng/mL 4.8 ng/mL *HI* *HI* *HI* (12/15/17 2:12 PM) (12/15/17 10:39 AM) (12/15/17 6:48 AM) CK MB Index [0.0-2.5] 1.4 1.4 1.3 (12/15/17 2:12 PM) (12/15/17 10:39 AM) (12/15/17 6:48 AM) Troponin-I [0.00-0.40 ng/mL] <0.02 ng/mL <0.02 ng/mL <0.02 ng/mL (12/15/17 2:12 PM) (12/15/17 10:39 AM) (12/15/17 6:48 AM) proBNP [0-125 pg/mL] 4088 pg/mL *HI* (12/15/17 6:48 AM) ANEMIA STUDY Most recent to oldest [Reference Range]: 1 2 3 Iron [45-160 ug/dl] 34 ug/dl *LOW* (12/15/17 4:29 PM) Ferritin Lvl [22-275 ng/mL] 266 ng/mL (12/15/17 4:29 PM) % Satur Fe [12-57 %] 12 % (12/15/17 4:29 PM) UIBC [110-370 ug/dl] 238 ug/dl (12/15/17 4:29 PM) Vitamin B12 Lvl [254-1320 pg/mL] 635 pg/mL (12/15/17 4:29 PM) Folate Lvl [>=3.0 ng/mL] 19.0 ng/mL (12/15/17 4:29 PM) TIBC [228-428 ug/dl] 272 ug/dl (12/15/17 4:29 PM) PARATHYROID PROFILE Most recent to oldest 1 2 3 [Reference Range]: Ca Ion WB [1.05-1.25 mMol/L] 0.86 mMol/L 1 0.88 mMol/L 2 0.88 mMol/L 3 *CRIT* *CRIT* *CRIT* (12/20/17 5:09 AM) (12/19/17 7:14 AM) (12/19/17 5:02 AM) Ca Norm WB [1.05-1.25 0.86 mMol/L 4 0.85 mMol/L 0.88 mMol/L 5 mMol/L] *CRIT* *CRIT* *CRIT* (12/20/17 5:09 AM) (12/19/17 7:14 AM) (12/19/17 5:02 AM) PTH Intact [11.1-79.5 pg/mL] 396.7 pg/mL *HI* (12/15/17 4:29 PM) 1Result Comment: Critical Result(s) called to Forrest TRUJILLO at 12/20/2017 05:58 by D^ 2. Read back OK.2Result Comment: Critical Result(s) called to Anita Reilly at 12/19/2017 08:38 by gp. Read back OK.3Result Comment: Critical Result(s) called to Henry CARREON at 12/19/2017 06:46 by D^2. Read back OK.4Result Comment: Critical Result(s) called to Forrest NUNOUIA at 12/20/2017 05:58 by D^2. Read back OK.5Result Comment: Critical Result(s) called to Henry CARREON at 12/19/2017 06:46 by D^2. Read back OK.URINE CHEM Most recent to oldest [Reference Range]: 1 2 3 U Creatinine 56.70 mg/dL *NA* (12/15/17 8:38 AM) U Protein 246.9 mg/dL *NA* (12/15/17 8:38 AM) U Prot/Creat 4.35 *NA* (12/15/17 8:38 AM) U Sodium 31 mEq/L *NA* (12/15/17 8:38 AM) U Potassium 20.0 mEq/L *NA* (12/15/17 8:38 AM) U Chloride 22 mEq/L *NA* (12/15/17 8:38 AM) U Osmolality [300-800 mOsm/kg] 223 mOsm/kg *LOW* (12/15/17 8:38 AM) U Eos [None Seen] None Seen (12/15/17 8:38 AM) URINE AND STOOL Most recent to oldest [Reference Range]: 1 2 3 UA Turbidity [Clear] Slight *ABN* (12/15/17 8:33 AM) UA Color STRAW *NA* (12/15/17 8:33 AM) UA pH [5.0-8.0] 5.0 (12/15/17 8:33 AM) UA Spec Grav [<=1.030] 1.008 (12/15/17 8:33 AM) UA Glucose 50 mg/dL *NA* (12/15/17 8:33 AM) UA Blood [Negative] Small *ABN* (12/15/17 8:33 AM) UA Ketones [Negative mg/dL] Negative mg/dL *NA* (12/15/17 8:33 AM) UA Protein [Negative mg/dL] 100 mg/dL *ABN* (12/15/17 8:33 AM) UA Urobilinogen [0.1-1.0 mg/dL] <=1.0 mg/dL *NA* (12/15/17 8:33 AM) UA Bili [Negative] Negative *NA* (12/15/17 8:33 AM) UA Leuk Est [Negative] Negative (12/15/17 8:33 AM) UA Nitrite [Negative] Negative (12/15/17 8:33 AM) UA WBC [0-5 /HPF] 3 /HPF (12/15/17 8:33 AM) UA RBC [0-2 /HPF] 1 /HPF (12/15/17 8:33 AM) UA Sq Epi [Few /LPF] Occasional /LPF *NA* (12/15/17 8:33 AM) UA Mucus [None Seen /LPF] Few /LPF *NA* (12/15/17 8:33 AM) Micro? Performed *NA* (12/15/17 8:33 AM) Occult Bld Stl [Negative] Positive *ABN* (12/19/17 12:00 PM) IMMUNOLOGY Most recent to oldest [Reference 1 2 3 Range]: CHRISTINA [Negative] Negative (12/17/17 4:32 AM) C3 Complement [88-201 mg/dL] 91 mg/dL (12/17/17 4:32 AM) C4 Complement [16-47 mg/dL] 29 mg/dL (12/17/17 4:32 AM) RF Qnt [0-20 IU/mL] <10 IU/mL (12/17/17 4:32 AM) DNA Ab (DS) [Negative] Negative (12/17/17 4:32 AM) C-ANCA [Negative] Negative (12/17/17 4:32 AM) P-ANCA [Negative] Negative (12/17/17 4:32 AM) Marana Free Light Chains [3.30-19.40 203.40 mg/L mg/L] *HI* (12/17/17 4:32 AM) Lambda Free Light Chains [5.70-26.30 59.41 mg/L mg/L] *HI* (12/17/17 4:32 AM) Marana/Lambda Free Light Chains Ratio 3.42 Ratio [0.26-1.65 Ratio] *HI* (12/17/17 4:32 AM) Albumin % [55.8-66.1 REL %] 53.1 REL % *LOW* (12/17/17 4:32 AM) Alpha 1 % [2.8-4.9 REL %] 6.8 REL % *HI* (12/17/17 4:32 AM) Alpha 2 % [7.0-11.9 REL %] 12.1 REL % *HI* (12/17/17 4:32 AM) Beta % [7.8-13.7 REL %] 11.8 REL % (12/17/17 4:32 AM) Gamma % [11.1-18.7 REL %] 16.2 REL % (12/17/17 4:32 AM) Albumin (SPE) [3.57-5.55 g/dL] 3.72 g/dL (12/17/17 4:32 AM) Alpha 1 Glob [0.18-0.41 g/dL] 0.48 g/dL *HI* (12/17/17 4:32 AM) Alpha 2 Glob [0.45-1.00 g/dL] 0.85 g/dL (12/17/17 4:32 AM) Beta Glob [0.50-1.15 g/dL] 0.83 g/dL (12/17/17 4:32 AM) Gamma Glob [0.71-1.57 g/dL] 1.13 g/dL (12/17/17 4:32 AM) Tot Prot (SPE) [6.4-8.4 g/dL] 7.0 g/dL (12/17/17 4:32 AM) SPE Interp Total protein and serum albumin are within normal limits. Serum capillary protein electrophoresis shows an elevated alpha-1 globulin fraction. No monoclonal proteins are identified. The electrophoret ic pattern is consistent with the acute phase of an inflammatory process. Clinical correlation is required. Interpretation performed at [facility]. *NA* (12/17/17 4:32 AM) MIKE Ser Pattern See interpretation. *NA* (12/17/17 4:32 AM) MIKE Ser Interp Serum immunofixation electrophoresis reveals a polyclonal pattern of immunoglobulins. No monoclonal proteins are identified. Interpretation performed at [facility]. *NA* (12/17/17 4:32 AM) Hep Bs Ag [Negative] Negative *NA* (12/17/17 4:32 AM) Hep Bs Ab [<=7.4 mIU/mL] <3.1 mIU/mL (12/17/17 4:32 AM) Hep B Core Ab [Negative] Negative *NA* (12/17/17 4:32 AM) HEMATOLOGY Most recent to oldest 1 2 3 [Reference Range]: WBC [3.7-10.4 K/CMM] 6.5 K/CMM 6.6 K/CMM 5.7 K/CMM (12/20/17 5:09 AM) (12/19/17 5:02 AM) (12/17/17 4:32 AM) RBC [4.70-6.10 M/CMM] 3.03 M/CMM 3.17 M/CMM 2.90 M/CMM *LOW* *LOW* *LOW* (12/20/17 5:09 AM) (12/19/17 5:02 AM) (12/17/17 4:32 AM) Hgb [14.0-18.0 g/dL] 8.4 g/dL 8.5 g/dL 7.9 g/dL *LOW* *LOW* *LOW* (12/20/17 5:09 AM) (12/19/17 5:02 AM) (12/17/17 4:32 AM) Hct [42.0-54.0 %] 23.5 % 24.7 % 22.8 % *LOW* *LOW* *LOW* (12/20/17 5:09 AM) (12/19/17 5:02 AM) (12/17/17 4:32 AM) MCV [80.0-94.0 fL] 77.5 fL 77.7 fL 78.6 fL *LOW* *LOW* *LOW* (12/20/17 5:09 AM) (12/19/17 5:02 AM) (12/17/17:32 AM) MCH [27.0-31.0 pg] 27.5 pg 26.8 pg 27.4 pg (12/20/17 5:09 AM) *LOW* (12/17/17 4:32 AM) (12/19/17 5:02 AM) MCHC [32.0-36.0 g/dL] 35.5 g/dL 34.5 g/dL 34.9 g/dL (12/20/17 5:09 AM) (12/19/17 5:02 AM) (12/17/17 4:32 AM) RDW [11.5-14.5 %] 14.1 % 14.3 % 14.3 % (12/20/17 5:09 AM) (12/19/17 5:02 AM) (12/17/17:32 AM) MPV [7.4-10.4 fL] 7.7 fL 8.0 fL 8.0 fL (12/20/17 5:09 AM) (12/19/17 5:02 AM) (12/17/17 4:32 AM) Platelet [133-450 K/CMM] 193 K/CMM 200 K/CMM 213 K/CMM (12/20/17 5:09 AM) (12/19/17 5:02 AM) (12/17/17 4:32 AM) Segs [45.0-75.0 %] 71.0 % 70.9 % 68.2 % (12/20/17 5:09 AM) (12/19/17 5:02 AM) (12/17/17 4:32 AM) Lymphocytes [20.0-40.0 %] 15.7 % 15.3 % 18.1 % *LOW* *LOW* *LOW* (12/20/17 5:09 AM) (12/19/17 5:02 AM) (12/17/17 4:32 AM) Monocytes [2.0-12.0 %] 9.4 % 10.3 % 10.4 % (12/20/17 5:09 AM) (12/19/17 5:02 AM) (12/17/17 4:32 AM) Eosinophils [0.0-4.0 %] 3.1 % 2.9 % 2.7 % (12/20/17 5:09 AM) (12/19/17 5:02 AM) (12/17/17 4:32 AM) Basophils [0.0-1.0 %] 0.8 % 0.6 % 0.6 % (12/20/17 5:09 AM) (12/19/17 5:02 AM) (12/17/17 4:32 AM) Segs-Bands # [1.5-8.1 K/CMM] 4.6 K/CMM 4.7 K/CMM 3.9 K/CMM (12/20/17 5:09 AM) (12/19/17 5:02 AM) (12/17/17 4:32 AM) Lymphocytes # [1.0-5.5 1.0 K/CMM 1.0 K/CMM 1.0 K/CMM K/CMM] (12/20/17 5:09 AM) (12/19/17 5:02 AM) (12/17/17 4:32 AM) Monocytes # [0.0-0.8 K/CMM] 0.6 K/CMM 0.7 K/CMM 0.6 K/CMM (12/20/17 5:09 AM) (12/19/17 5:02 AM) (12/17/17 4:32 AM) Eosinophils # [0.0-0.5 0.2 K/CMM 0.2 K/CMM 0.2 K/CMM K/CMM] (12/20/17 5:09 AM) (12/19/17 5:02 AM) (12/17/17 4:32 AM) Microcyte [None Seen] 1+ 1+ 1+ *ABN* *ABN* *ABN* (12/20/17 5:09 AM) (12/19/17 5:02 AM) (12/17/17 4:32 AM) Sed Rate [0-15 mm/hr] 80 mm/hr *HI* (12/17/17 4:32 AM) Retic Auto [0.5-1.5 %] 1.5 % (12/15/17 2:13 PM) D-Dimer 1.17 ug/mL FEU *NA* (12/15/17 6:48 AM) Immunizations Given and Recorded Vaccine Date [...] 03/17/18 Assessment and Plan Extracted from: Title: Nephrololgy Progress Note * Author: Nick Desir Date: 12/20 Balbir CRUZ Impression and Plan 57 yo male with past medical history of HTN, DM type 2, ANGEL, presented to ER c /o SOB. Found to have high creatinine 1. Acute kidney injury on chronic kidney disease versus chronic kidney disease stage V. Etiology to be determined. Clinically patient seems to have chronic kidney disease. -To rule out glomerulopathy in setting of hypertension and a family history of kidney disease (his father was in dialysis). Of note, patient was taking benazepril and lisinopril at the same time. -Renal ultrasound suggesting chronic kidney disease. Atrophic left kidney. No hydronephrosis. No obstructive uropathy. -Nephrotic range proteinuria. -work up negative for low C3, Low C4, RF, HbsAg, HCV ab, CHRISTINA,ANCA. -Workup positive for high kappa/lambda free light chain ratio. No monoclonal banding in immunofixation SPEP though. Follow-up as outpatient 2. Hyperkalemia, corrected. Continue low potassium diet. 3. Secondary hyperparathyroidism, hypocalcemia. Persisting chronic hypocalcemia. Currently hypocalcemia asymptomatic. PTH in target. Hyperphosphatemia. Vitamin D deficiency. 4. Resolving hypervolemic hyponatremia. Related to advanced renal failure. Sodium level fluctuant. 5. Improving Acute congestive heart failure/fluid overload. Echocardiogram with a pericardial effusion. 6. Acute on chronic anemia. Anemia of chronic disease and iron deficiency. On Iron IV. 7. Hypertension. Not controlled. Recommendation. Switch lasix to 80 mg po daily Avoid nephrotoxic medication, NSAID use. Avoid ZAINAB inhibitorsince advanced renal failure. Continue calcium carbonate 2 g 3 times daily. Continue Calcitriol 0.25 mcg p.o. daily Continue Ergocalciferol 73846 Units q week. Continue Renagel 2400 mg 3 times daily with meals Discussed with patient about initiation of renal replacement therapy. Patient was explained about the risk and benefits of starting hemodialysis through tunneled hemodialysis catheter. He shows to und tree. Patient states that he made his mind. He does not want hemodialysis at this point. He states that he wants to get a second opinion. Discussed with Dr Moses. Any question, please call [phone]. Extracted from: Title: History and Physical Author: Redd Moses DO Date: 12/15/17 1.Fluid overload trend labwork, to give lasix, follow closely. no urgent need for hd now but possible if fluid overload continues Ordered: Admit/Condition, 12/15/17 8:30:00 DETAILER, Status: Inpatient, Acute, Expected LOS: 2 Midnights, Redd Moses DO, Admit MD Review/Approve Yes 2.Acute renal failure cr 11, trend. possibly related to meds, holding for now. nephro evaluation. Ordered: Admit/Condition, 12/15/17 8:30:00 DETAILER, Status: Inpatient, Acute, Expected LOS: 2 Midnights, Redd Moses DO, Admit MD Review/Approve Yes 3.Acute CHF probable acute on chronic diastolic dysfunction Ordered: Admit/Condition, 12/15/17 8:30:00 DETAILER, Status: Inpatient, Acute, Expected LOS: 2 Midnights, Redd Moses DO, Admit MD Review/Approve Yes 4.Hypertension restart norvasc amb pending cr trend, uop, nephro recs, possible HD Extracted from: Title: Nephrology consultation Author: Nick Desir Date : 12/15/17 Impression and Plan 57 yo male with past medical history of HTN, DM type 2, ANGEL, presented to ER c /o SOB. Found to have high creatinine 1. Acute kidney injury on chronic kidney disease versus chronic kidney disease stage V. Etiology to be determined. Clinically patient seems to have chronic kidney disease. To rule out obstructive ur opathy. Patient reported low urinary symptoms 2 months ago. To rule out glomerulopathy in setting of hypertension and a family history of kidney disease (his father was in dialysis). Of note, patient was taking benazepril and lisinopril at the same time. 2. Hyperkalemia, mild. No hyperkalemic EKG changes. 3. Hypocalcemia. Likely associated with secondary hyperparathyroidism. 4. Hypervolemic hyponatremia, due to advanced renal failure. 5. Acute congestive heart failure/fluid overload. 6. Anemia. 7. Hypertension. Recommendation. Stat renal ultrasound. Hallman catheter placement. If the patient does not have obstructive uropathy, Lasix 80 mg IV every 8 hours. Discontinue ZAINAB inhibitor. Avoid nephrotoxic medication, NSAID use. No need for urgent dialysis at this point. Nevertheless I discussed with patient possibility of hemodialysis if renal function does not improve. Urine osmolality urine protein and creatinine in random sample urine electrolyte. Echocardiogram. Evaluate for for pericardial effusion. Calcium carbonate 15 g 3 times daily. Calcitriol 0.25 mcg p.o. daily PTH, vitamin D, anemia workup. Further recommendation will depend on follow up and renal ultrasound finding. Discussed with Dr Moses. Any question, please call [phone].
--- OUTSIDE RECORDS SUMMARY | 2019-02-21 15:04 | XMS REPORT | Summary of Care ---
:1960 Author Organization [facility] Address [address] [place] [address]- Encounter HQ Junior_deshaun(ELVIRA) [phone] Date(s): 04/14/18 - 04/15/18 [facility] [address] [place] [phone] Discharge Disposition: Home or Self Care Attending Physician: David Dexter MD Admitting Physician: David Dexter MD Vital Signs Most recent to oldest [Reference 1 2 3 Range]: Height 172.72 cm (04/14/18 6:25 PM) Temperature Oral [96.4-99.1 98.2 DegF 98.0 DegF 98.2 DegF DegF] (04/15/18 11:40 AM) (04/15/18 8:15 AM) (04/15/18 4:31 AM) Blood Pressure [90-140/60-90 161/88 mmHg 165/88 mmHg 159/86 mmHg mmHg] *HI* *HI* *HI* (04/15/18 4:25 PM) (04/15/18 11:40 AM) (04/15/18 8:15 AM) Respiratory Rate [14-20 BRMIN] 16 BRMIN 18 BRMIN 18 BRMIN (04/15/18 11:40 AM) (04/15/18 8:15 AM) (04/15/18 4:31 AM) Peripheral Pulse Rate [60-100 64 bpm 67 bpm 69 bpm bpm] (04/15/18 11:40 AM) (04/15/18 8:15 AM) (04/15/18 4:31 AM) Weight 87.784 kg 74.091 kg (04/15/18 2:53 AM) (04/14/18 6:25 PM) Body Mass Index 24.84 m2 (04/14/18 6:25 PM) Problem List Condition Effective Dates Status Health Status Informant ESRD (end stage renal disease) on Active dialysis(Confirmed) Pericardial effusion(Confirmed) Active Allergies, Adverse Reactions, Alerts Substance Reaction Severity Status NKDA Active Medications Ambien 5 mg, 1 tab, Route: PO, Drug form: TAB, Bedtime, Dosing Weight 87.784, kg, PRN as needed for insomnia, Priority: NOW, Start date: 04/15/18 3:47:00 CDT, Duration: 30 day, Stop date: 05/15/18 3:46:00 CDT Notes: (Same As: Sri) Start Date: 04/15/18 Stop Date: 04/15/18 Status: DiscontinuedamLODIPine 10 mg, 2 tab, Route: PO, Drug form: TAB, ONCE, Dosing Weight 74.091, kg, Start date: 04/14/18 22:50:00 CDT, Stop date: 04/14/18 22:50:00 CDT Notes: (Same as: Dariel) Start Date: 04/14/18 Stop Date: 04/14/18 Status: CompletedamLODIPine 10 mg, 2 tab, Route: PO, Drug form: TAB, Daily, Dosing Weight 74.091, kg, Start date: 04/15/18 9:00:00 CDT, Duration: 30 day, Stop date: 05/14/18 9:00:00 CDT Notes: (Same as: Dariel) Start Date: 04/15/18 Stop Date: 04/15/18 Status: Discontinuedcalcium acetate 667 mg oral capsule 2,001 mg, 3 cap, Route: PO, Drug form: CAP, TID, Dosing Weight 74.091, kg, Start date: 04/15/18 9:00:00 CDT, Duration: 30 day, Stop date: 05/14/18 17:00: 00 CDT Notes: Same as Phoslo Gel Cap Start Date: 04/15/18 Stop Date: 04/15/18 Status: Discontinuedcarvedilol 3.125 mg, 1 tab, Route: PO, Drug form: TAB, Q12H, Dosing Weight 74.091, kg, Start date: 04/15/18 9:00:00 CDT, Duration: 30 day, Stop date: 05/14/18 21:00: 00 CDT Notes: Give with food. (Same As: Coreg) Start Date: 04/15/18 Stop Date: 04/15/18 Status: Discontinuedcarvedilol 3.125 mg oral tablet 3.125 mg=1 tab, PO, Q12H, # 60 tab, 0 Refill(s) Start Date: 04/15/18 Stop Date: 05/15/18 Status: OrderedcloNIDine 0.1 mg oral tablet 0.1 mg, 1 tab, Route: PO, Drug form: TAB, ONCE, Dosing Weight 74.091, kg, Priority: STAT, Start date: 04/14/18 19:45:00 CDT, Stop date: 04/14/18 19:45:00 CDT Notes: (Same As: Catapres) Start Date: 04/14/18 Stop Date: 04/14/18 Status: CompletedcloNIDine 0.1 mg oral tablet 0.1 mg, Route: PO, Drug form: TAB, ONCE, Dosing Weight 74.091, kg, Priority: STAT, Start date: 04/14/18 22:02:00 CDT, Stop date: 04/14/18 22:02:00 CDT Start Date: 04/14/18 Stop Date: 04/14/18 Status: CompletedDextrose 50% Syringe 25 gm, 50 mL, Route: IVP, Drug Form: INJ, Dosing Weight 74.091, kg, PRN, PRN Blood Glucose Results, Start date: 04/15/18 2:15:00 CDT, Duration: 30 day, Stop date: 05/15/18 2:14:00 CDT Start Date: 04/15/18 Stop Date: 04/15/18 Status: DiscontinuedDextrose 50% Syringe 12.5 gm, 25 mL, Route: IVP, Drug Form: INJ, Dosing Weight 74.091, kg, PRN, PRN Blood Glucose Results, Start date: 04/15/18 2:15:00 CDT, Duration: 30 day, Stop date: 05/15/18 2:14:00 CDT Start Date: 04/15/18 Stop Date: 04/15/18 Status: Discontinuedergocalciferol 50,000 intl units oral capsule 50,000 IntlUnit, 1 cap, Route: PO, Drug form: CAP, qWeek, Dosing Weight 74.091, kg, Start date: 04/15/18 2:00:00 CDT, Duration: 30 day, Stop date: 05/13/18 9:00 :00 CDT Start Date: 04/15/18 Stop Date: 04/15/18 Status: Discontinuedglucagon 1 mg, Route: IM, Drug form: PDR/INJ, PRN, Dosing Weight 74.091, kg, PRN Blood Glucose Results, Startdate: 04/15/18 2:15:00 CDT, Duration: 30 day, Stop date: 05/15/18 2:14:00 CDT Start Date: 04/15/18 Stop Date: 04/15/18 Status: DiscontinuedhydrALAZINE 10 mg, 0.5 mL, Route: IVP, Drug form: INJ, ONCE, Dosing Weight 74.091, kg, Priority: STAT, Start date: 04/14/18 22:50:00 CDT, Stop date: 04/14/18 22:50:00 CDT Notes: (Same as: Apresoline)Push over 5 minutes Start Date: 04/14/18 Stop Date: 04/14/18 Status: CompletedhydrALAZINE 10 mg, Route: IVP, ONCE, Dosing Weight 74.091, kg, Priority: STAT, Start date: 04/15/18 1:27:00 CDT,Stop date: 04/15/18 1:27:00 CDT Start Date: 04/15/18 Stop Date: 04/15/18 Status: CompletedhydrALAZINE 25 mg oral tablet 25 mg, 1 tab, Route: PO, Drug form: TAB, TID, Dosing Weight 74.091, kg, Start date: 04/15/18 9:00:00CDT, Duration: 30 day, Stop date: 05/14/18 17:00:00 CDT Notes: (Same as: Apresoline) May interfere w/enteral feedings Take With Food. Start Date: 04/15/18 Stop Date: 04/15/18 Status: DiscontinuedhydrALAZINE 50 mg oral tablet 50 mg=1 tab, PO, TID, # 90 tab, 0 Refill(s) Start Date: 04/15/18 Stop Date: 05/15/18 Status: OrderedhydrOXYzine hydrochloride 25 mg oral tablet 25 mg=1 tab, PO, TID, PRN Anxiety, # 40 tab, 0 Refill(s) Start Date: 04/15/18 Stop Date: 04/25/18 Status: Orderedinsulin lispro 2 unit, 0.02 mL, Route: SUB-Q, Drug form: SOLN, TID-Before Meals, Dosing Weight 74.091, kg, PRN Blood Glucose Results, Start date: 04/15/18 2:15:00 CDT, Duration: 30 day, Stop date: 05/15/18 2:14:00 CDT Notes: (Same as: Humalog ) Roll in palms of hands gently; Do not shake ` vigorously. "Single PatientUse Only " WASTE: F/P - Black; E - Municipal Trash Bin Stable for 28 days at room temperature.Expires in days from Date Start Date: 04/15/18 Stop Date: 04/15/18 Status: Discontinuedinsulin lispro 6 unit, 0.06 mL, Route: SUB-Q, Drug form: SOLN, TID-Before Meals, Dosing Weight 74.091, kg, PRN Blood Glucose Results, Start date: 04/15/18 2:15:00 CDT, Duration: 30 day, Stop date: 05/15/18 2:14:00 CDT Notes: (Same as: Humalog ) Roll in palms of hands gently; Do not shake ` vigorously. "Single PatientUse Only " WASTE: F/P - Black; E - Municipal Trash Bin Stable for 28 days at room temperature.Expires in days from Date Start Date: 04/15/18 Stop Date: 04/15/18 Status: Discontinuedinsulin lispro 4 unit, 0.04 mL, Route: SUB-Q, Drug form: SOLN, TID-Before Meals, Dosing Weight 74.091, kg, PRN Blood Glucose Results, Start date: 04/15/18 2:15:00 CDT, Duration: 30 day, Stop date: 05/15/18 2:14:00 CDT Notes: (Same as: Humalog ) Roll in palms of hands gently; Do not shake ` vigorously. "Single PatientUse Only " WASTE: F/P - Black; E - Municipal Trash Bin Stable for 28 days at room temperature.Expires in days from Date Start Date: 04/15/18 Stop Date: 04/15/18 Status: Discontinuedinsulin lispro 10 unit, 0.1 mL, Route: SUB-Q, Drug form: SOLN, TID-Before Meals, Dosing Weight 74.091, kg, PRN Blood Glucose Results, Start date: 04/15/18 2:15:00 CDT, Duration: 30 day, Stop date: 05/15/18 2:14:00 CDT Notes: (Same as: Humalog ) Roll in palms of hands gently; Do not shake ` vigorously. "Single PatientUse Only " WASTE: F/P - Black; E - Municipal Trash Bin Stable for 28 days at room temperature.Expires in days from Date Start Date: 04/15/18 Stop Date: 04/15/18 Status: Discontinuedinsulin lispro 8 unit, 0.08 mL, Route: SUB-Q, Drug form: SOLN, TID-Before Meals, Dosing Weight 74.091, kg, PRN Blood Glucose Results, Start date: 04/15/18 2:15:00 CDT, Duration: 30 day, Stop date: 05/15/18 2:14:00 CDT Notes: (Same as: Humalog ) Roll in palms of hands gently; Do not shake ` vigorously. "Single PatientUse Only " WASTE: F/P - Black; E - Municipal Trash Bin Stable for 28 days at room temperature.Expires in days from Date Start Date: 04/15/18 Stop Date: 04/15/18 Status: DiscontinuedLasix 80 mg, 2 tab, Route: PO, Drug form: TAB, BID, Dosing Weight 74.091, kg, Start date: 04/15/18 9:00:00CDT, Duration: 30 day, Stop date: 05/14/18 17:00:00 CDT Notes: (Same as: Lasix) May cause GI upset. Give with food or milk. Start Date: 04/15/18 Stop Date: 04/15/18 Status: Discontinuedmorphine Sulfate 2 mg, 1 mL, Route: IVP, Drug form: SOLN, Q4H, Dosing Weight 87.784, kg, PRN Pain Score 6-10, Start date: 04/15/18 4:49:00 CDT, Duration: 30 day, Stop date: 05/15/18 4:48:00 CDT Start Date: 04/15/18 Stop Date: 04/15/18 Status: DiscontinuedNIFEdipine 60 mg oral tablet, extended release 60 mg=1 tab, PO, Daily, # 30 tab, 0 Refill(s) Start Date: 04/15/18 Stop Date: 05/15/18 Status: OrderedNS (Bolus) IV 250 mL, 500 ml/hr, Infuse Over: 0.5 hr, Route: IV, 250, Drug form: INJ, ONCE, Priority: STAT, DosingWeight 74.091 kg, Start date: 04/15/18 1:34:00 CDT, Stop date: 04/15/18 1:34:00 CDT Start Date: 04/15/18 Stop Date: 04/15/18 Status: CompletedPercocet 5/325 oral tablet 1 tab, Route: PO, Drug Form: TAB, Dosing Weight 74.091, kg, BID, Start date: 05/26 9:00:00 CDT, Duration: 30 day, Stop date: 05/14/18 17:00:00 CDT Start Date: 04/15/18 Stop Date: 04/15/18 Status: Canceledpotassium chloride 20 mEq, 1 tab, Route: PO, Drug form: ERTAB, ONCE, Dosing Weight 87.784, kg, Start date: 04/15/18 15:22:00 CDT, Stop date: 04/15/18 15:22:00 CDT Notes: (Same as: K-Dur 20)"Do Not Crush"For patients unable to swallow tablet, dissolve in one half glass of water. Allow about 2 minutes for the tablets to disintegrate. Stir before giving to prepare slurry and administer.Please exclude Patients with feeding tube less than 14 Malay (Dobhoff, J-tube etc) and pediatric and patients. With food and full glass of water Start Date: 04/15/18 Stop Date: 04/15/18 Status: CompletedSaline Flush 0.9% 10 mL, Route: IVP, Drug Form: INJ, Dosing Weight 74.091, kg, PRN, PRN Line Flush , Start date: 04/14/18 18:55:00 CDT, Duration: 30 day, Stop date: 05/14/18 18:54 :00 CDT Notes: (Same as: BD Posiflush) Start Date: 04/14/18 Stop Date: 04/15/18 Status: Discontinuedtamsulosin 0.4 mg, 1 cap, Route: PO, Drug form: CAP, Bedtime, Dosing Weight 74.091, kg, Start date: 04/15/18 21:00:00 CDT, Duration: 30 day, Stop date: 05/14/18 21:00: 00 CDT Notes: (Same As: Flomax) "Do Not Crush" Start Date: 04/15/18 Stop Date: 04/15/18 Status: CanceledXanax 2 mg oral tablet 2 mg, 2 tab, Route: PO, Drug form: TAB, BID, Dosing Weight 74.091, kg, PRN Anxiety, Start date: 04/15/18 1:56:00 CDT, Duration: 30 day, Stop date: 1:55:00 CDT Notes: With food or milk(Same as: Xanax) Start Date: 04/15/18 Stop Date: 04/15/18 Status: Discontinued Results ELECTROLYTES Most recent to oldest [Reference Range]: 1 2 3 Sodium Lvl [135-145 mEq/L] 138 mEq/L 137 mEq/L (04/15/18 2:54 AM) (04/14/18 7:12 PM) Potassium Lvl [3.5-5.1 mEq/L] 3.2 mEq/L 3.3 mEq/L *LOW* *LOW* (04/15/18 2:54 AM) (04/14/18 7:12 PM) Chloride Lvl [95-109 mEq/L] 103 mEq/L 102 mEq/L (04/15/18 2:54 AM) (04/14/18 7:12 PM) CO2 [24-32 mEq/L] 23 mEq/L 26 mEq/L *LOW* (04/14/18 7:12 PM) (04/15/18 2:54 AM) AGAP [10.0-20.0 mEq/L] 15.2 mEq/L 12.3 mEq/L (04/15/18 2:54 AM) (04/14/18 7:12 PM) CHEM PANEL Most recent to oldest [Reference Range]: 1 2 3 Creatinine Lvl [0.50-1.40 mg/dL] 5.83 mg/dL 4.94 mg/dL *HI* *HI* (04/15/18 2:54 AM) (04/14/18 7:12 PM) eGFR 10 mL/min/1.73m2 1 12 mL/min/1.73m2 2 *NA* *NA* (04/15/18 2:54 AM) (04/14/18 7:12 PM) BUN [7-22 mg/dL] 34 mg/dL 24 mg/dL *HI* *HI* (04/15/18 2:54 AM) (04/14/18 7:12 PM) B/C Ratio [6-25] 6 5 (04/15/18 2:54 AM) *LOW* (04/14/18 7:12 PM) Glucose Lvl [70-99 mg/dL] 95 mg/dL 156 mg/dL (04/15/18 2:54 AM) *HI* (04/14/18 7:12 PM) Total Protein [6.4-8.4 g/dL] 7.1 g/dL 7.4 g/dL (04/15/18 2:54 AM) (04/14/18 7:12 PM) Albumin Lvl [3.5-5.0 g/dL] 3.3 g/dL 3.2 g/dL *LOW* *LOW* (04/15/18 2:54 AM) (04/14/18 7:12 PM) Globulin [2.7-4.2 g/dL] 3.8 g/dL 4.2 g/dL (04/15/18 2:54 AM) (04/14/18 7:12 PM) A/G Ratio [0.7-1.6] 0.9 0.8 (04/15/18 2:54 AM) (04/14/18 7:12 PM) Calcium Lvl [8.5-10.5 mg/dL] 8.5 mg/dL 8.1 mg/dL (04/15/18 2:54 AM) *LOW* (04/14/18 7:12 PM) Phosphorus [2.5-4.5 mg/dL] 4.2 mg/dL (04/15/18 2:54 AM) Magnesium Lvl [1.8-2.4 mg/dL] 1.9 mg/dL (04/15/18 2:54 AM) ALT [0-65 unit/L] 18 unit/L 17 unit/L (04/15/18 2:54 AM) (04/14/18 7:12 PM) AST [0-37 unit/L] 14 unit/L 14 unit/L (04/15/18 2:54 AM) (04/14/18 7:12 PM) Alk Phos [39-136 unit/L] 82 unit/L 88 unit/L (04/15/18 2:54 AM) (04/14/18 7:12 PM) Bili Total [0.2-1.3 mg/dL] 0.5 mg/dL 0.5 mg/dL (04/15/18 2:54 AM) (04/14/18 7:12 PM) 1Result Comment: The eGFR is calculated [...] estimated BMI.CARDIAC ENZYMES Most recent to oldest 1 2 3 [Reference Range]: Total CK [12-191 unit/L] 26 unit/L 31 unit/L 37 unit/L (04/15/18 7:03 AM) (04/15/18 2:54 AM) (04/14/18 7:12 PM) CK MB [0.5-3.6 ng/mL] 1.0 ng/mL (04/14/18 7:12 PM) CK MB Index [0.0-2.5] 2.7 *HI* (04/14/18 7:12 PM) Troponin-I [0.00-0.40 ng/mL] 0.04 ng/mL 0.02 ng/mL <0.02 ng/mL (04/15/18 7:03 AM) (04/15/18 2:54 AM) (04/14/18 9:58 PM) proBNP [0-125 pg/mL] 52681 pg/mL *HI* (04/14/18 7:12 PM) HEMATOLOGY Most recent to oldest [Reference Range]: 1 2 3 WBC [3.7-10.4 K/CMM] 5.7 K/CMM 5.0 K/CMM (04/15/18 2:54 AM) (04/14/18 7:12 PM) RBC [4.70-6.10 M/CMM] 4.48 M/CMM 4.25 M/CMM *LOW* *LOW* (04/15/18 2:54 AM) (04/14/18 7:12 PM) Hgb [14.0-18.0 g/dL] 11.6 g/dL 11.1 g/dL *LOW* *LOW* (04/15/18 2:54 AM) (04/14/18 7:12 PM) Hct [42.0-54.0 %] 35.5 % 33.0 % *LOW* *LOW* (04/15/18 2:54 AM) (04/14/18 7:12 PM) MCV [80.0-94.0 fL] 79.2 fL 77.5 fL *LOW* *LOW* (04/15/18 2:54 AM) (04/14/18 7:12 PM) MCH [27.0-31.0 pg] 25.8 pg 26.0 pg *LOW* *LOW* (04/15/18 2:54 AM) (04/14/18 7:12 PM) MCHC [32.0-36.0 g/dL] 32.6 g/dL 33.5 g/dL (04/15/18 2:54 AM) (04/14/18 7:12 PM) RDW [11.5-14.5 %] 17.7 % 17.6 % *HI* *HI* (04/15/18 2:54 AM) (04/14/18 7:12 PM) MPV [7.4-10.4 fL] 7.2 fL 7.3 fL *LOW* *LOW* (04/15/18 2:54 AM) (04/14/18 7:12 PM) Platelet [133-450 K/CMM] 215 K/CMM 208 K/CMM (04/15/18 2:54 AM) (04/14/18 7:12 PM) Segs [45.0-75.0 %] 61.0 % 72.3 % (04/15/18 2:54 AM) (04/14/18 7:12 PM) Lymphocytes [20.0-40.0 %] 26.7 % 17.2 % (04/15/18 2:54 AM) *LOW* (04/14/18 7:12 PM) Monocytes [2.0-12.0 %] 8.0 % 7.5 % (04/15/18 2:54 AM) (04/14/18 7:12 PM) Eosinophils [0.0-4.0 %] 3.3 % 2.0 % (04/15/18 2:54 AM) (04/14/18 7:12 PM) Basophils [0.0-1.0 %] 1.0 % 1.0 % (04/15/18 2:54 AM) (04/14/18 7:12 PM) Segs-Bands # [1.5-8.1 K/CMM] 3.5 K/CMM 3.6 K/CMM (04/15/18 2:54 AM) (04/14/18 7:12 PM) Lymphocytes # [1.0-5.5 K/CMM] 1.5 K/CMM 0.9 K/CMM (04/15/18 2:54 AM) *LOW* (04/14/18 7:12 PM) Monocytes # [0.0-0.8 K/CMM] 0.5 K/CMM 0.4 K/CMM (04/15/18 2:54 AM) (04/14/18 7:12 PM) Eosinophils # [0.0-0.5 K/CMM] 0.2 K/CMM 0.1 K/CMM (04/15/18 2:54 AM) (04/14/18 7:12 PM) Basophils # [0.0-0.2 K/CMM] 0.1 K/CMM 0.1 K/CMM (04/15/18 2:54 AM) (04/14/18 7:12 PM) Microcyte [None Seen] 1+ *ABN* (04/14/18 7:12 PM) Plt Morph Normal (04/14/18 7:12 PM) Immunizations Given and Recorded Vaccine Date Status [...] Reg Smoking Cessation Counseling No entered on: 04/14/18 Assessment and Plan Extracted from: Title: UIP Hospitalist Admission H&P Author: Debi Moreira MD Date: 04/15/18 [facility] Providers Hospitalist Admission History & Physical Code Status: Full Code [Ordered] Chief Complaint: high blood pressure, chest pain History of Present Illness: This is a 57 year old M with a hx of ESRD on TTS HD, pericardial effusion s/p pericardiocentesis in January in [place], and HTN who presented with high blood pressure and chest pain after dialysis. During tanika lysis, SBF was in the 200s and persistently elevated at home, therefore, decided to come to the ED. He is also complaining of headaches. Patient endorses that normally, blood pressure runs in the 140s . He was peristently hypertensive in the ED with bp in 200s/100s. He is s/p amlodipine, IV hydralazine x 2, and clonidine x 2. Upon my encounter, after he had received all these medications, blood pr essure was 140s/80s. Patient started having some chest pain that he described as "fluttering" after HD as well. Currently having no symptoms. Denies any association with activity or position. No juan carlos rtness of breath. No abdominal pain, nausea, vomiting, diarrhea. No LE edema. CXR with no signs of volume overload. He is a patient of Dr. Harvey. Of note, [place] in January, at the time, he was admitted where he required pericardiocentesis. He was taking Coreg, Lasix, Amlodipine, and Hydralazine at the time. His doctors in [place] took him off Amlodipine and Hydralazine. Review of Systems: as mentioned in HPI Past Medical History: No qualifying data available Past Surgical History: Shoulder manipulation Knee maneuver Family History: No qualifying data available Social History: Alcohol Details: Past, Frequency: 1-2 times per week. Tobacco Details: Use: Never smoker. Tobacco smoke exposure: None. Did the Patient Smoke Cigarettes Anytime During the Last 365 Days? No. Cessation Counseling Provided? No. Details: Use: Never smoker. Previous treatment: None. Ready to change: No. Household tobacco concerns: No. Tobacco smoke exposure: None. Did the Patient Smoke Cigarettes Anytime During the Last 365 Days? No. Cessation Counseling Provided? No. Substance Abuse Details: Use: None. Medications: Medications (16) Active Scheduled Meds (8): 04/15/18 acetaminophen-oxycodone (Percocet 5/325 oral tablet) 1 tab PO BID 04/15/18 amLODIPine 10 mg PO Daily 04/15/18 calcium acetate (calcium acetate 667 mg oral capsule) 2,001 mg PO TID 04/15/18 carvedilol 3.125 mg PO Q12H 04/15/18 ergocalciferol (ergocalciferol 50,000 intl units oral capsule) 50,000 IntlUnit PO qWeek 04/15/18 furosemide (Lasix) 80 mg PO BID 04/15/18 hydrALAZINE (hydrALAZINE 25 mg oral tablet) 25 mg PO TID 04/15/18 tamsulosin 0.4 mg PO Bedtime Unscheduled Meds: None PRN Meds (2): 04/15/18 ALPRAZOLam (Xanax 2 mg oral tablet) 2 mg PO BID 04/14/18 sodium chloride (Saline Flush 0.9%) 10 mL IVP PRN One Time Meds (6): 04/15/18 (Completed) Sodium Chloride 0.9% IV (NS (Bolus) IV) 250 mL IV ONCE 500 ml/hr 04/14/18 (Completed) amLODIPine 10 mg PO ONCE 04/14/18 (Completed) cloNIDine (cloNIDine 0.1 mg oral tablet) 0.1 mg PO ONCE 04/14/18 (Completed) cloNIDine (cloNIDine 0.1 mg oral tablet) 0.1 mg PO ONCE 04/14/18 (Completed) hydrALAZINE 10 mg IVP ONCE 04/15/18 (Completed) hydrALAZINE 10 mg IVP ONCE Continuous Infusions: None Allergies (1) Active Reaction NKDA None documented Allergies: Physical Exam: Vitals Tmp(F) Pulse BP RR SpO2 FIO2 04/15 01:24 98 81 200/89 17 97 --- 04/15 00:02 ---- 79 187/102 18 100 --- 04/14 23:30 ---- 76 196/104 18 --- --- 04/14 21:58 ---- 60 225/99 18 100 --- 04/14 20:56 ---- 58 196/104 18 97 --- 24 Hr Tmax: 98.2F (36.78c) at 04/14 18:25 Vital Signs are the last 5 in the past 48 hours. General: Awake, alert, oriented x 3, NAD HEENT: PERRLA, EOMI. MMM and intact without erythema. No conjunctival injection. No scleral icterus. Neck: Supple, full ROM Heart: RRR, normal S1, S2. No murmurs, rubs, gallops Lungs: Clear to auscultation bilaterally. Symmetric chest wall expansion. Abdomen: Soft, non-tender to palpation, non-distended. Bowel sound present in all 4 quadrants. MSK: 5/5 strength in upper and lower extremities bilaterally. No peripheral edema. Skin: No rashes or lesions. No petechiae or bruising noted. Neuro: 5/5 muscle strength in all 4 extremities. CN II-XII grossly intact. Psych: Appropriate mood and affect. I&O Record In Out Bal 04/14 24hr Tot 250 0 250 04/13 24hr Tot 0 0 0 Labs: Hct: 33 % Low (04/14/18 19:12:00 CDT) Hgb: 11.1 g/dL Low (04/14/18 19:12:00 CDT) MCH: 26 pg Low (04/14/18 19:12:00 CDT) MCHC: 33.5 g/dL (04/14/18 19:12:00 CDT) MCV: 77.5 fL Low (04/14/18 19:12:00 CDT) MPV: 7.3 fL Low (04/14/18 19:12:00 CDT) Platelet: 208 K/CMM (04/14/18 19:12:00 CDT) RBC: 4.25 M/CMM Low (04/14/18 19:12:00 CDT) RDW: 17.6 % High (04/14/18 19:12:00 CDT) WBC: 5 K/CMM (04/14/18 19:12:00 CDT) CO2: 26 mEq/L (04/14/18 19:12:00 CDT) Chloride Lvl: 102 mEq/L (04/14/18 19:12:00 CDT) Sodium Lvl: 137 mEq/L (04/14/18 19:12:00 CDT) Glucose Lvl: 156 mg/dL High (04/14/18 19:12:00 CDT) Calcium Lvl: 8.1 mg/dL Low (04/14/18 19:12:00 CDT) Potassium Lvl: 3.3 mEq/L Low (04/14/18 19:12:00 CDT) BUN: 24 mg/dL High (04/14/18 19:12:00 CDT) AGAP: 12.3 mEq/L (04/14/18 19:12:00 CDT) Creatinine Lvl: 4.94 mg/dL High (04/14/18 19:12:00 CDT) Imaging: Reviewed Assessment/Plan: 1. Hypertensive urgency 2. Chest pain 3. ESRD on TTS HD 4. HTN 5. DM type 2 Plan: -Patient's blood pressure 140s/90s after IV hydralazine, clonidine, and amlodipine. Will continue to monitor. Will resume home medications of Coreg and Lasix. Will re-initiate PO hydralazine and Amlodipine -Troponin x 1 negative. Continue to trend 2 more sets of trops -f/u TTE -SSI, accuchecks Prophylaxis: amb Disposition: 1 [place] Debi Moreira MD Hospitalist Drain Inpatient Providers
--- OUTSIDE RECORDS SUMMARY | 2019-02-21 15:04 | XMS REPORT ---
:1960 [facility] Address [address] [place] [address] Dr. Rodriguez [address] [place] [id number] Care Team Providers Name Role Phone Unavailable Unavailable Unavailable Problems This patient has no known problems. Allergies, Adverse Reactions, Alerts This patient has no known allergies or adverse reactions. Medications This patient has no known medications.
[2019-02-21] MEDS ORDERED: CYCLOBENZAPRINE 10 MG TAB ONE (15:56)
[2019-02-21] MEDS ORDERED: HYDROCODONE/APAP 10/325 TAB ONE (15:57)
--- NOTE | 2019-02-21 16:44 | EDPHYS ---
Physician Documentation [facility] Name: Alex Cagle Age: 58 yrs Sex: Male : 1960 Arrival Date: 02/21/2019 Time: 14:35 Bed 26 Private MD: Toya Andrew H ED Physician Burton Rubio HPI: 02/21 15:38 This 58 yrs old Male presents to ER via Ambulatory with complaints of Neck pm1 Pain, <24hrs Old. 15:38 The patient or guardian complains of pain, that is acute. The symptoms are located on pm1 the right trapezius. Onset: The symptoms/episode began/occurred yesterday. Context: The problem was sustained at home, The neck injury/problem resulted from a fall. Associated signs and symptoms: Pertinent negatives: fever, headache, numbness, tingling, The patient denies any alcohol use. The patient is not apparently intoxicated. The pain does not radiate. Modifying factors: The symptoms are alleviated by heating pad and Tylenol #4. Severity of symptoms: in the emergency department the symptoms are actually worse. The patient has not experienced similar symptoms in the past. The patient has not recently seen a physician. Patient had the fall yesterday and landed on his right side. Patient with no pain immediately after his fall but a few hours later he started having right sided neck pain. No headache, head injury, LOC, nausea or vomiting. No chest pain, shortness of breath, or abdominal pain. Patient reports that his heating pad has been working and pain is reproduced with moving his head side to side and palpation. Historical: - Allergies: 14:39 NKA; hj - PMHx: 14:39 CHF; Diabetes - NIDDM; Dialysis; ESRD; Hypertension; insomnia; hj - PSHx: 14:39 Knee surgery; Dialysis catheter to R chest; hj - Immunization history:: Flu vaccine is not up to date. - Social history:: Smoking status: unknown. - Ebola Screening: : No symptoms or risks identified at this time. ROS: 15:38 Constitutional: Negative for fever, chills, and weight loss, Eyes: Negative for injury, pm1 pain, redness, and discharge, ENT: Negative for injury, pain, and discharge, Cardiovascular: Negative for chest pain, palpitations, and edema. 15:38 Respiratory: Negative for shortness of breath, cough, wheezing, and pleuritic chest pain, Abdomen/GI: Negative for abdominal pain, nausea, vomiting, diarrhea, and constipation, Back: Negative for injury and pain, : Negative for injury, bleeding, discharge, and swelling, MS/Extremity: Negative for injury and deformity, Skin: Negative for injury, rash, and discoloration, Neuro: Negative for headache, weakness, numbness, tingling, and seizure. 15:38 Neck: Positive for pain with movement, tenderness, of the right trapezius, Negative for mass. Exam: 15:38 Constitutional: This is a well developed, well nourished patient who is awake, alert, pm1 and in no acute distress. Head/Face: Normocephalic, atraumatic. Eyes: Pupils equal round and reactive to light, extra-ocular motions intact. Lids and lashes normal. Conjunctiva and sclera are non-icteric and not injected. Cornea within normal limits. Periorbital areas with no swelling, redness, or edema. ENT: Nares patent. No nasal discharge, no septal abnormalities noted. Tympanic membranes are normal and external auditory canals are clear. Oropharynx with no redness, swelling, or masses, exudates, or evidence of obstruction, uvula midline. Mucous membranes moist. 15:38 Chest/axilla: Normal chest wall appearance and motion. Nontender with no deformity. No lesions are appreciated. Cardiovascular: Regular rate and rhythm with a normal S1 and S2. No gallops, murmurs, or rubs. Normal PMI, no JVD. No pulse deficits. Respiratory: Lungs have equal breath sounds bilaterally, clear to auscultation and percussion. No rales, rhonchi or wheezes noted. No increased work of breathing, no retractions or nasal flaring. Abdomen/GI: Soft, non-tender, with normal bowel sounds. No distension or tympany. No guarding or rebound. No evidence of tenderness throughout. Back: No spinal tenderness. No costovertebral tenderness. Full range of motion. Skin: Warm, dry with normal turgor. Normal color with no rashes, no lesions, and no evidence of cellulitis. MS/ Extremity: Pulses equal, no cyanosis. Neurovascular intact. Full, normal range of motion. 15:38 Neck: External neck: tenderness, that is moderate, of the right trapezius, C-spine: vertebral tenderness, is not appreciated, ROM/movement: Meningeal signs: are not present, Kernig's sign is negative, Brudzinski's sign is negative, nuchal rigidity, is not appreciated. 15:38 Neuro: Orientation: is normal, Motor: is normal, moves all fours, Sensation: is normal, no obvious gross deficits. Vital Signs: 14:39 BP 156 / 90; Pulse 71; Resp 18; Temp 99.6(TE); Pulse Ox 98% on R/A; Weight 89.81 kg; hj Height 5 ft. 7 in. (170.18 cm); Pain 10/10; 17:19 BP 145 / 78; Pulse 80; Resp 18; Temp 99; Pulse Ox 100% on R/A; Pain 0/10; mg2 14:39 Body Mass Index 31.01 (89.81 kg, 170.18 cm) hj MDM: 15:27 Patient medically screened. pm1 16:42 Data reviewed: vital signs. Data interpreted: Pulse oximetry: on room air is 98 %. pm1 Interpretation: normal. Counseling: I had a detailed discussion with the patient and/or guardian regarding: the historical points, exam findings, and any diagnostic results supporting the discharge/admit diagnosis, the need for outpatient follow up, to return to the emergency department if symptoms worsen or persist or if there are any questions or concerns that arise at home. Administered Medications: 15:49 Drug: Flexeril 10 mg Route: PO; mg2 16:30 Follow up: Response: No adverse reaction; Marked relief of symptoms mg2 15:50 Drug: [place] 10 mg-325 mg 1 tabs Route: PO; mg2 16:30 Follow up: Response: No adverse reaction; Marked relief of symptoms mg2 Disposition: 02/22 09:22 Co-signature as Attending Physician, Burton Rubio MD. Disposition: 02/21/19 16:43 Discharged to Home. Impression: Strain of muscle, fascia and tendon at neck level. - Condition is Stable. - Discharge Instructions: Muscle Strain. - Prescriptions for Cyclobenzaprine 10 mg Oral Tablet - take 1 tablet by ORAL route every 8 hours As needed; 30 tablet. Tylenol- Codeine #3 300-30 mg Oral Tablet - take 2 tablet by ORAL route every 6 hours As needed; 30 tablet. - Medication Reconciliation Form, Thank You Letter, Antibiotic Education, Prescription Opioid Use form. - Follow up: Emergency Department; When: As needed; Reason: Worsening of condition. Follow up: Private Physician; When: 2 - 3 days; Reason: Recheck today's complaints, Continuance of care, Re-evaluation by your physician. - Problem is new. - Symptoms have improved. Signatures: Panfilo Win RN RN Luis Colby NP [employer] pm1 Burton Rubio MD MD Jair Marcus RN RN mg2 Corrections: (The following items were deleted from the chart) 02/21 17:21 16:43 02/21/2019 16:43 Discharged to Home. Impression: Strain of muscle, fascia and mg2 tendon at neck level. Condition is Stable. Forms are Medication Reconciliation Form, Thank You Letter, Antibiotic Education, Prescription Opioid Use. Follow up: Emergency Department; When: As needed; Reason: Worsening of condition. Follow up: Private Physician; When: 2 - 3 days; Reason: Recheck today's complaints, Continuance of care, Re-evaluation by your physician. Problem is new. Symptoms have improved. pm1
--- NOTE | 2019-02-21 16:44 | ER ---
Nurse's Notes [facility] Name: Alex Cagle Age: 58 yrs Sex: Male : 1960 Arrival Date: 02/21/2019 Time: 14:35 Bed 26 Private MD: Toya Andrew H Diagnosis: Strain of muscle, fascia and tendon at neck level Presentation: 02/21 14:37 Presenting complaint: Patient states: dialysis pt at home; i have this neck pain and hj spasm since yesterday; i feel weak; pt almost fell to the ground in walking towards the ED;. Transition of care: patient was not received from another setting of care. Onset of symptoms was February 21, 2019. Risk Assessment: Do you want to hurt yourself or someone else? Patient reports no desire to harm self or others. Initial Sepsis Screen: Does the patient meet any 2 criteria? No. Patient's initial sepsis screen is negative. Does the patient have a suspected source of infection? No. Patient's initial sepsis screen is negative. Care prior to arrival: None. 14:37 Method Of Arrival: Ambulatory 14:37 Acuity: DEJAN 3 hj Historical: - Allergies: 14:39 NKA; hj - PMHx: 14:39 CHF; Diabetes - NIDDM; Dialysis; ESRD; Hypertension; insomnia; hj - PSHx: 14:39 Knee surgery; Dialysis catheter to R chest; hj - Immunization history:: Flu vaccine is not up to date. - Social history:: Smoking status: unknown. - Ebola Screening: : No symptoms or risks identified at this time. Screenin:12 Abuse screen: Denies threats or abuse. Denies injuries from another. Nutritional mg2 screening: No deficits noted. Tuberculosis screening: No symptoms or risk factors identified. Fall Risk Ambulatory Aid- None/Bed Rest/Nurse Assist (0 pts). Assessment: 16:11 General: Appears in no apparent distress. comfortable, Behavior is calm, cooperative. mg2 Pain: Complains of pain in neck Pain does not radiate. Pain currently is 8 out of 10 on a pain scale. Quality of pain is described as aching, Pain began gradually, Is intermittent. Neuro: Level of Consciousness is awake, alert, obeys commands, Oriented to person, place, time, situation. Cardiovascular: Capillary refill < 3 seconds Patient's skin is warm and dry. Respiratory: Airway is patent Respiratory effort is even, unlabored, Respiratory pattern is regular, symmetrical. GI: No deficits noted. : No deficits noted. EENT: No deficits noted. Derm: Skin is intact, is healthy with good turgor, Skin is pink, warm \T\ dry. normal. Musculoskeletal: Circulation, motion, and sensation intact. Capillary refill < 3 seconds, Reports pain in neck. 17:20 Reassessment: Patient states feeling better. mg2 Vital Signs: 14:39 BP 156 / 90; Pulse 71; Resp 18; Temp 99.6(TE); Pulse Ox 98% on R/A; Weight 89.81 kg; hj Height 5 ft. 7 in. (170.18 cm); Pain 10/10; 17:19 BP 145 / 78; Pulse 80; Resp 18; Temp 99; Pulse Ox 100% on R/A; Pain 0/10; mg2 14:39 Body Mass Index 31.01 (89.81 kg, 170.18 cm) hj ED Course: 14:35 Patient arrived in ED. mr 14:36 Toya Andrew DO is Private Physician. mr 14:39 Triage completed. hj 14:41 Arm band placed on left wrist. hj 15:26 Luis Santa [facility]. pm1 15:26 Burton Rubio MD is Attending Physician. pm1 15:41 Jair Marcus RN is Primary Nurse. mg2 16:13 Patient has correct armband on for positive identification. Door closed. Warm blanket mg2 given. 16:13 No provider procedures requiring assistance completed. Patient did not have IV access mg2 during this emergency room visit. Administered Medications: 15:49 Drug: Flexeril 10 mg Route: PO; mg2 16:30 Follow up: Response: No adverse reaction; Marked relief of symptoms mg2 15:50 Drug: [place] 10 mg-325 mg 1 tabs Route: PO; mg2 16:30 Follow up: Response: No adverse reaction; Marked relief of symptoms mg2 Outcome: 16:43 Discharge ordered by . pm1 17:20 Discharged to home via wheelchair. mg2 17:20 Condition: stable 17:20 Discharge instructions given to patient, Instructed on discharge instructions, follow up and referral plans. medication usage, Demonstrated understanding of instructions, follow-up care, medications, Prescriptions given X 2. 17:21 Patient left the ED. mg2 Signatures: Mervat Rojas mr Panfilo Win, RN RN hj Luis Santa, [employer] pm1 Jair Marcus RN RN mg2 Corrections: (The following items were deleted from the chart) 14:42 14:39 Pulse 71bpm; Resp 18bpm; Pulse Ox 98% RA; Temp 99.6F Temporal; 89.81 kg; Height 5 hj ft. 7 in.; BMI: 31.0; Pain 10/10; hj
== END 2019-02-21 17:21 | disposition home or self-care (01) ==
LOC: ER 14:34
DX: S16.1XXA Strain of muscle, fascia and tendon at neck level, initial encounter (principal); W18.30XA Fall on same level, unspecified, initial encounter; Y93.9 Activity, unspecified; Y92.9 Unspecified place or not applicable
CPT/HCPCS: 99283

== ENCOUNTER 2019-04-05 13:10 | Emergency (ER) | payer OTHER ==
--- OUTSIDE RECORDS SUMMARY | 2019-04-05 13:38 | XMS REPORT | Continuity of Care Document ---
:1960 Author Organization [facility] [employer] ([email or web address]) Information Exchange Care Team Providers Name Role Phone [facility] [employer] ([email or web address]) Information Exchange Unavailable Unavailable Problems Problem Status Onset Classification Date Comments Source Date Reported Other specified 02/10/2019 complication of 018 [facility] vascular prosthetic devices, implants and grafts, initial encounter Unspecified 02/06/2019 complication of 018 [facility] internal prosthetic device, implant and graft, initial encounter ESRD NEEDING DIALYSIS, Active [facility] ACUTE PULMONARY E 018 [place] REFERRAL Active [facility] 018 [place] Acute hyperkalemia 02/06/2019 018 [place] Complication of 02/06/2019 intraperitoneal 018 [place] dialysis catheter REFFERSERA Active [facility] 018 [place] RENAL/DO NOT USE FOR Active [facility] CHARGES F/C NOTES O [address] [place] [id number] NEW EVALUATION Active [address] CHEST PAIN Active [facility] 018 [place] HYPERTENSIVE URGENCY, Active [facility] CHEST PAIN 018 [place] ACUTE DYSPNEA Active [facility] 018 [place] WEAKNESS Active [facility] 018 [place] CKD 01/25/2018 Tabatha Cody IN NEED OF DIALYSIS Active [facility] 018 [place] 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, [place] Dependence on renal 02/10/2019 [facility] dialysis [facility], [place] Anxiety disorder, 02/06/2019 unspecified [facility] Sleep apnea, 02/10/2019 unspecified [facility] Other care home drug 02/06/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 [facility] Pericardial effusion 02/10/2019 [facility] Nausea 02/06/2019 [facility] Other symptoms and 02/06/2019 signs concerning food [facility] and fluid intake Anxiety Resolved Problem 02/10/2019 [facility] Diabetes Resolved Problem 02/10/2019 [facility] ESRD on Active Problem 02/10/2019 [facility] dialysis(Confirmed) [facility] Hypertension Resolved Problem 02/10/2019 [facility] Pericardial effusion Active Problem 02/10/2019 [facility] Simple obesity Active Problem 02/10/2019 [facility] Sleep apnea Resolved Problem 02/10/2019 [facility] Type 2 diabetes 01/08/2019 [facility] mellitus without [facility] Center,[facility] Acute pulmonary edema 02/10/2019 [facility] Acute kidney failure, 02/10/2019 unspecified [place] Fluid overload, 02/10/2019 unspecified [place] Obesity, unspecified 02/10/2019 [facility] Body mass index 02/10/2019 33.0-33.9, adult [facility] Chronic obstructive 02/10/2019 pulmonary disease, [place] unspecified Dyspnea, unspecified 03/23/2018 [facility] Hypocalcemia 03/28/2018 [facility] Other disorders of 03/28/2018 phosphorus metabolism [facility] Hypo-osmolality and 03/28/2018 hyponatremia [facility] Iron deficiency 03/28/2018 anemia, unspecified [facility] Secondary 03/28/2018 hyperparathyroidism of [facility] renal origin Acute diastolic heart 03/28/2018 failure [facility] Anemia in other 03/28/2018 chronic diseases [facility] classified elsewhere Atherosclerosis of 03/28/2018 renal artery [facility] Obstructive sleep 03/28/2018 apnea (pediatric) [facility] ACUTE KIDNEY FAILURE, Active [facility] UNSPECIFIED [place] FLUID OVERLOAD, Active [facility] UNSPECIFIED [place] HEART FAILURE, Active [facility] UNSPECIFIED [place] DYSPNEA, U[facility]PECIFIED [facility] DISEASE [place] ACUTE PULMONARY EDEMA Active [facility] Medications Medication Details Route Status Patient Ordering Order Source Instructions Provider Date NIFEdipine 60 mg 60 mg=1 tab, Active oral tablet, PO, Daily, # 2018 [place] extended release 30 tab, 0 Refill(s), Pharmacy: [id number] heparin 10,000 unit, Inactive MH 10 mL, Route: 2018 [place] DIALYSIS, Drug form: INJ, ONCALL, Dosing Weight 102.273, kg, PRN Dialysis, Start date: 07/24/18 10:21:00 CDT, Duration: 1 doses or times, Stop date: Limited # of times Dilaudid 2 mg, 1 tab, No Longer Route: PO, Active 2017 [facility] Drug form: TAB, Q4H, PRN Pain Score 7-10, Start date: 07/23/18 14:17:00 CDT, Duration: 30 day, Stop date: 08/22/18 14:16:00 CSTNotes: (Same as: Dilaudid) heparin 10,000 unit, Inactive 10 mL, Route: 2017 [place] DIALYSIS, Drug form: INJ, ONCALL, Dosing Weight 102.273, kg, Start date: 07/23/18 8:00:00 CDT, Duration: 1 doses or times Sodium Chloride 2,000 mL, No Longer 0.9% IV 2,000 mL Rate: for Active 2017 [facility] dialysis, Route: IV, Dosing Weight 102.273 kg, Total Volume: 2,000, Start date: 07/23/18 7:22:00 CDT, Duration: 1 day, Stop date: 07/24/18 7:21:00 CDT, 2.23, m2 zolpidem 10 mg, Route: Inactive PO, Drug form: 2017 [place] TAB, Bedtime, Dosing Weight 102.273, kg, Start date: 07/22/18 21:00:00 CDT, Duration: 30 day, Stop date: 08/20/18 21:00:00 [place] tamsulosin 0.4 mg, 1 cap, No Longer Route: PO, Active 2017 [place] Drug form: CAP, Bedtime, Dosing Weight 102.273, kg, Start date: 07/22/18 21:00:00 CDT, Duration: 30 day, Stop date: 08/20/18 21:00:00 CSTNotes: (Same As: Flomax) "Do Not Crush" NIFEdipine 60 mg 60 mg, 2 tab, No Longer oral tablet, Route: PO, Active 2018 [place] extended release Drug form: ERTAB, Daily, Dosing Weight 102.273, kg, Start date: 07/22/18 9:00:00 CDT, Duration: 30 day, Stop date: 08/20/18 9:00:00 CSTNotes: (Same as: Adalat CC, Procardia XL) Give on empty stomach. Take 1 hour before or 2 hours after meal; "Avoid grapefruit and grapefruit juice". Do not crush multivitamin 1 tab, Route: No Longer PO, Drug Form: Active 2018 [place] TAB, Dosing Weight 102.273, kg, Daily, Start date: 07/22/18 9:00:00 CDT, Duration: 30 day, Stop date: 08/20/18 9:00:00 CSTNotes: (Same as:One Tab Daily, Tab-A-Conor + Beta Carotene) Give with food. Hydralazine 50 mg, 1 tab, No Longer Hydrochloride 50 Route: PO, Active 2018 [place] MG Oral Tablet Drug form: TAB, TID, Dosing Weight 102.273, kg, Start date: 07/22/18 9:00:00 CDT, Duration: 30 day, Stop date: 08/20/18 17:00:00 CSTNotes: (Same as: Apresoline) May interfere w/enteral feedings Take With Food Lasix 80 mg, 2 tab, No Longer Route: PO, Active 2017 [place] Drug form: TAB, BID, Dosing Weight 102.273, kg, Start date: 07/22/18 9:00:00 CDT, Duration: 30 day, Stop date: 08/20/18 17:00:00 CSTNotes: (Same as: Lasix) May cause GI upset. Give with food or milk. carvedilol 3.125 mg, 1 No Longer tab, Route: Active 2018 [place] PO, Drug form: TAB, Q12H, Dosing Weight 102.273, kg, Start date: 07/22/18 9:00:00 CDT, Duration: 30 day, Stop date: 08/20/18 21:00:00 CSTNotes: Give with food. (Same As: Coreg) calcium acetate 2,001 mg, 3 No Longer 667 MG Oral cap, Route: Active 2018 [place] Capsule PO, Drug form: CAP, TID, Dosing Weight 102.273, kg, Start date: 07/22/18 9:00:00 CDT, Duration: 30 day, Stop date: 08/20/18 17:00:00 CSTNotes: Same as Phoslo Gel Cap Amlodipine 10 mg, 2 tab, No Longer Route: PO, Active 2018 [place] Drug form: TAB, Daily, Dosing Weight 102.273, kg, Start date: 07/22/18 9:00:00 CDT, Duration: 30 day, Stop date: 08/20/18 9:00:00 CSTNotes: (Same as: Norvasc) Docusate 100 mg, 1 cap, No Longer Route: PO, Active 2018 [place] Drug form: CAP, BID, Dosing Weight 96.7, kg, Start date: 07/22/18 9:00:00 CDT, Duration: 30 day, Stop date: 08/20/18 17:00:00 CSTNotes: (Same as: Colace) (Do Not Crush) carvedilol 12.5 37.5 mg=3 tab, Active mg oral tablet PO, BID, 0 2018 [place] Refill(s) calcium acetate See Active 667 MG Oral Instructions, 2018 [place] Capsule 0 Refill(s) Hydralazine 50 mg, PO, Active MH TID, 0 2018 [place] Refill(s) Amlodipine 10 MG 1 cap, PO, Active / Benazepril TID, 0 2018 [place] hydrochloride 20 Refill(s) MG Oral Capsule Hydroxyzine 25 mg, 1 tab, No Longer Hydrochloride 25 Route: PO, Active 2018 [facility] MG Oral Tablet Drug form: TAB, TID, Dosing Weight 102.273, kg, PRN Anxiety, Start date: 07/22/18 6:31:00 CDT, Duration: 30 day, Stop date: 08/21/18 6:30:00 CSTNotes: (Same as: Atarax) Avoid alcohol. Alprazolam 2 MG 2 mg, 2 tab, No Longer Oral Tablet Route: PO, Active 2017 [place] [Xanax] Drug form: TAB, BID, Dosing Weight 102.273, kg, PRN Anxiety, Start date: 07/22/18 6:31:00 CDT, Duration: 30 day, Stop date: 08/21/18 6:30:00 CSTNotes: With food or milk (Same as: Xanax) Dilaudid 0.5 mg, 0.5 No Longer mL, Route: Active 2017 [place] IVP, Drug form: INJ, Q4H, Dosing Weight 102.273, kg, PRN Pain Score 7-10, Start date: 07/22/18 6:27:00 CDT, Duration: 30 day, Stop date: 08/21/18 6:26:00 CSTNotes: Same as: Dilaudid Dilaudid 1 mg, Route: Inactive IVP, ONCE, 2017 [place] Dosing Weight 96.7, kg, Priority: STAT, Start date: 07/22/18 4:04:00 CDT, Stop date: 07/22/18 4:04:00 CDT Dilaudid 1 mg, Route: Inactive IVP, ONCE, 2018 [place] Dosing Weight 96.7, kg, Priority: STAT, Start date: 07/22/18 2:16:00 CDT, Stop date: 07/22/18 2:16:00 CDT heparin 10,000 unit, No Longer 10 mL, Route: Active 2017 [facility] DIALYSIS, Drug form: INJ, ONCALL, Dosing Weight 96.7, kg, Start date: 07/22/18 1:00:00 CDT, Duration: 1 doses or times Mannitol 25 gm, 100 mL, No Longer Route: IVPB, Active 2017 [place] Drug form: INJ, ONCE, Dosing Weight 96.7, kg, Start date: 07/22/18 0:43:00 CDT, Stop date: 07/22/18 0:43:00 CDTNotes: (Same as: Osmitrol) Infuse through 5 micron or smaller filter WASTE: F/P - Sink; E - Municipal Trash Bin normal saline 1,000 mL, No Longer 0.9% IV 1,000 mL Rate: for Active 2017 [facility] dialysis prime and rinseback only, Rate: 0 ml/hr, Infuse over: 0, Route: IV, Dosing Weight 96.7 kg, Total Volume: 1,000, Start date: 07/22/18 0:43:00 CDT, Duration: 30 day, Stop date: 08/21/18 0:42:00 [place], 2.16, m2 Acetaminophen 325 mg, 1 tab, No Longer Route: PO, Active 2017 [place] Drug form: TAB, Q4H, Dosing Weight 96.7, kg, PRN Pain Score 4-6, Start date: 07/22/18 0:22:00 CDT, Duration: 30 day, Stop date: 08/21/18 0:21:00 CSTNotes: Do not exceed 4 gm/day. (Same as: Tylenol) Morphine 2 mg, 2 mL, No Longer Route: IVP, Active 2017 [facility] Drug form: SOLN, Q4H, Dosing Weight 96.7, kg, PRN Pain Score 7-10, Start date: 07/22/18 0:22:00 CDT, Duration: 30 day, Stop date: 08/21/18 0:21:00 CSTNotes: Preservative free. (Same as: Morphine Sulfate-PF) Ondansetron 4 mg, 2 mL, No Longer Route: IVP, Active 2017 [place] Drug form: INJ, Q6H, Dosing Weight 96.7, kg, PRN Nausea & Vomiting, Start date: 07/22/18 0:22:00 CDT, Duration: 30 day, Stop date: 08/21/18 0:21:00 CSTNotes: (Same as: Zofran) MEDICATION WASTE Product Size: 4 mg Product Wasted: ___ mg Dilaudid 0.5 mg, 0.5 Inactive mL, Route: 2017 [place] IVP, Drug form: INJ, ONCE, Dosing Weight 96.7, kg, Priority: STAT, Start date: 07/22/18 0:07:00 CDT, Stop date: 07/22/18 0:07:00 CDTNotes: Same as: Dilaudid Zofran 4 mg, 2 mL, No Longer Route: IVP, Active 2017 [facility] Drug form: INJ, ONCE, Dosing Weight 96.7, kg, Start date: 07/21/18 23:47:00 CDT, Stop date: 07/21/18 23:47:00 CDTNotes: (Same as: Zofran) MEDICATION WASTE Product Size: 4 mg Product Wasted: ___ mg Dilaudid 0.5 mg, 0.5 No Longer mL, Route: Active 2017 [place] IVP, Drug form: INJ, ONCE, Dosing Weight 96.7, kg, Priority: STAT, Start date: 07/21/18 23:46:00 CDT, Stop date: 07/21/18 23:46:00 CDTNotes: Same as: Dilaudid Hydromorphone 0.5 mg, 0.5 Inactive mL, Route: 2017 [place] IVP, Drug form: INJ, ONCE, Dosing Weight 96.7, kg, Priority: STAT, Start date: 07/21/18 23:13:00 CDT, Stop date: 07/21/18 23:13:00 CDTNotes: Same as: Dilaudid Saline Flush 10 mL, Route: No Longer 0.9% IVP, Drug Active 2017 [place] Form: INJ, Dosing Weight 96.7, kg, PRN, PRN Line Flush, Start date: 07/21/18 21:24:00 CDT, Duration: 30 day, Stop date: 08/20/18 20:23:00 CSTNotes: (Same as: BD Posiflush) lactulose 10 g =1 Pack, PO, No Longer oral powder Daily, X 2 Active 2017 [place] day, # 30 ea, 0 Refill(s) Sodium 15 gm, PO, No Longer polystyrene Daily, X 2 Active 2017 [place] sulfonate 250 day, # 30 gm, MG/ML Oral 0 Refill(s) Suspension [Kayexalate] Kayexalate 15 gm, 60 mL, Inactive Route: PO, 2017 [place] Drug form: SUSP, ONCE, Dosing Weight 93.636, kg, Priority: STAT, Start date: 07/20/18 18:39:00 CDT, Stop date: 07/20/18 18:39:00 CDTNotes: (sodium polystyrene sulfonate 15 gm/60 ml CANDACE) Shake well before use. (Same as: Kayexalate, SPS) Ascorbic Acid 60 1 tab, PO, Active [place] MG / Calcium Daily, 0 2017 [facility] Pantothenate 10 Refill(s) Center MG / [...] Lorazepam 1 MG 1 mg=1 tab, Active [facility] Oral Tablet PO, PRN, 0 2017 [facility] Refill(s) Center amLODIPine 10 mg 10 mg=1 tab, Active [facility] oral tablet PO, Daily, 0 2018 [facility] Refill(s) Center tamsulosin 0.4 mg, 1 cap, Inactive Route: PO, 2018 [place] Drug form: CAP, Bedtime, Dosing Weight 74.091, kg, Start date: 04/15/18 21:00:00 CDT, Duration: 30 day, Stop date: 05/14/18 21:00:00 CDTNotes: (Same As: Flomax) "Do Not Crush" Hydralazine 50 mg=1 tab, Active Hydrochloride 50 PO, TID, # 90 2018 [facility] MG Oral Tablet tab, 0 Refill(s) NIFEdipine 60 mg 60 mg=1 tab, Active oral tablet, PO, Daily, # 2018 [place] extended release 30 tab, 0 Refill(s) carvedilol 3.125 3.125 mg=1 Active mg oral tablet tab, PO, Q12H, 2018 [place] # 60 tab, 0 Refill(s) Potassium 20 mEq, 1 tab, Inactive Chloride Route: PO, 2017 [facility] Drug form: ERTAB, ONCE, Dosing Weight 87.784, [...] s with feeding tube less than 14 [place] (Dobhoff, J-tube etc) and pediatric and patients. With food and full glass of water Hydralazine 25 mg, 1 tab, Inactive Hydrochloride 25 Route: PO, 2017 [facility] MG Oral Tablet Drug form: TAB, TID, Dosing Weight 74.091, kg, Start date: 04/15/18 9:00:00 CDT, Duration: 30 day, Stop date: 05/14/18 17:00:00 CDTNotes: (Same as: Apresoline) May interfere w/enteral feedings Take With Food. Lasix 80 mg, 2 tab, Inactive Route: PO, 2017 [place] Drug form: TAB, BID, Dosing Weight 74.091, kg, Start date: 04/15/18 9:00:00 CDT, Duration: 30 day, Stop date: 05/14/18 17:00:00 CDTNotes: (Same as: Lasix) May cause GI upset. Give with food or milk. Acetaminophen 1 tab, Route: Inactive 325 MG / PO, Drug Form: 2018 [place] Oxycodone TAB, Dosing Hydrochloride 5 Weight 74.091, MG Oral Tablet kg, BID, Start [Percocet 5/325] date: 04/15/18 9:00:00 CDT, Duration: 30 day, Stop date: 05/14/18 17:00:00 CDT carvedilol 3.125 mg, 1 Inactive tab, Route: 2018 [place] PO, Drug form: TAB, Q12H, Dosing Weight 74.091, kg, Start date: 04/15/18 9:00:00 CDT, Duration: 30 day, Stop date: 05/14/18 21:00:00 CDTNotes: Give with food. (Same As: Coreg) calcium acetate 2,001 mg, 3 Inactive 667 MG Oral cap, Route: 2018 [place] Capsule PO, Drug form: CAP, TID, Dosing Weight 74.091, kg, Start date: 04/15/18 9:00:00 CDT, Duration: 30 day, Stop date: 05/14/18 17:00:00 CDTNotes: Same as Phoslo Gel Cap Amlodipine 10 mg, 2 tab, Inactive Route: PO, 2017 [place] Drug form: TAB, Daily, Dosing Weight 74.091, kg, Start date: 04/15/18 9:00:00 CDT, Duration: 30 day, Stop date: 05/14/18 9:00:00 CDTNotes: (Same as: Norvasc) Morphine 2 mg, 1 mL, Inactive Route: IVP, 2017 [place] Drug form: SOLN, Q4H, Dosing Weight 87.784, kg, PRN Pain Score 6-10, Start date: 04/15/18 4:49:00 CDT, Duration: 30 day, Stop date: 05/15/18 4:48:00 CDT Ambien 5 mg, 1 tab, Inactive Route: PO, 2017 [place] Drug form: TAB, Bedtime, Dosing Weight 87.784, kg, PRN as needed for insomnia, Priority: NOW, Start date: 04/15/18 3:47:00 CDT, Duration: 30 day, Stop date: 05/15/18 3:46:00 CDTNotes: (Same As: Ambien) Hydroxyzine 25 mg=1 tab, Active Hydrochloride 25 PO, TID, PRN 2018 [facility] MG Oral Tablet Anxiety, # 40 tab, 0 Refill(s) Insulin Lispro 2 unit, 0.02 Inactive mL, Route: 2018 [place] SUB-Q, Drug form: SOLN, TID-Before Meals, Dosing [...] gm, 50 mL, Inactive Syringe Route: IVP, 2018 [place] Drug Form: INJ, Dosing Weight 74.091, kg, PRN, PRN Blood Glucose Results, Start date: 04/15/18 2:15:00 CDT, Duration: 30 day, Stop date: 05/15/18 2:14:00 CDT Glucagon 1 mg, Route: Inactive IM, Drug form: 2018 [place] PDR/INJ, PRN, Dosing Weight 74.091, kg, PRN Blood Glucose Results, Start date: 04/15/18 2:15:00 CDT, Duration: 30 day, Stop date: 05/15/18 2:14:00 CDT Ergocalciferol 50,000 Inactive 09764 UNT Oral IntlUnit, 1 2018 [place] Capsule cap, Route: PO, Drug form: CAP, qWeek, Dosing Weight 74.091, kg, Start date: 04/15/18 2:00:00 CDT, Duration: 30 day, Stop date: 05/13/18 9:00:00 CDT Alprazolam 2 MG 2 mg, 2 tab, Inactive Oral Tablet Route: PO, 2017 [place] [Xanax] Drug form: TAB, BID, Dosing Weight 74.091, kg, PRN Anxiety, Start date: 04/15/18 1:56:00 CDT, Duration: 30 day, Stop date: 05/15/18 1:55:00 CDTNotes: With food or milk (Same as: Xanax) NS (Bolus) IV 250 mL, 500 Inactive ml/hr, Infuse 2017 [place] Over: 0.5 hr, Route: IV, 250, Drug form: INJ, ONCE, Priority: STAT, Dosing Weight 74.091 kg, Start date: 04/15/18 1:34:00 CDT, Stop date: 04/15/18 1:34:00 CDT Hydralazine 10 mg, Route: Inactive IVP, ONCE, 2017 [place] Dosing Weight 74.091, kg, Priority: STAT, Start date: 04/15/18 1:27:00 CDT, Stop date: 04/15/18 1:27:00 CDT Amlodipine 10 mg, 2 tab, Inactive Route: PO, 2017 [place] Drug form: TAB, ONCE, Dosing Weight 74.091, kg, Start date: 04/14/18 22:50:00 CDT, Stop date: 04/14/18 22:50:00 CDTNotes: (Same as: Norvasc) Hydralazine 10 mg, 0.5 mL, Inactive Route: IVP, 2017 [facility] Drug form: INJ, ONCE, Dosing Weight 74.091, kg, Priority: STAT, Start date: 04/14/18 22:50:00 CDT, Stop date: 04/14/18 22:50:00 CDTNotes: (Same as: Apresoline) Push over 5 minutes Clonidine 0.1 mg, Route: Inactive Hydrochloride PO, Drug form: 2018 [place] 0.1 MG Oral TAB, ONCE, Tablet Dosing Weight 74.091, kg, Priority: STAT, Start date: 04/14/18 22:02:00 CDT, Stop date: 04/14/18 22:02:00 CDT Clonidine 0.1 mg, 1 tab, Inactive Hydrochloride Route: PO, 2018 [place] 0.1 MG Oral Drug form: Tablet TAB, ONCE, Dosing Weight 74.091, kg, Priority: STAT, Start date: 04/14/18 19:45:00 CDT, Stop date: 04/14/18 19:45:00 CDTNotes: (Same As: Catapres) Saline Flush 10 mL, Route: No Longer 0.9% IVP, Drug Active 2017 [place] Form: INJ, Dosing Weight 74.091, kg, PRN, PRN Line Flush, Start date: 04/14/18 18:55:00 CDT, Duration: 30 day, Stop date: 05/14/18 18:54:00 CDTNotes: (Same as: BD Posiflush) vancomycin + 500 mg, Route: Inactive Sodium Chloride IVPB, ONCE, 2017 [place] 0.9% IV 100 mL Start date: 03/19/18 13:00:00 CDT, Stop date: 03/19/18 13:00:00 CDT, ABX Indication: Other (specify in Comments)Notes : TIME CRITICAL MEDICATION (Same As: Vancocin) For adult patients only: Round to nearest 250 mg per Medical Staff approval cefdinir 300 MG 300 mg=1 cap, Active Oral Capsule PO, Q12H, X 7 2017, # 14 cap, 0 Refill(s), Pharmacy: [facility] #[id number] heparin 10,000 unit, No Longer 10 mL, Route: Active 2017 [facility] DIALYSIS, Drug form: INJ, ONCALL, Dosing Weight 100.455, kg, Start date: 03/19/18 10:00:00 CDT, Duration: 1 doses or times Sodium Chloride 1,000 mL, No Longer 0.9% IV 1,000 mL Rate: 2000, 2017 [place] Route: IV, Dosing Weight 100.455 kg, Total Volume: 1,000, Start date: 03/19/18 9:14:00 CDT, Duration: 1 doses or times, Stop date: 03/20/18 9:13:00 CDT, 2.19, m2 Tylenol 325 mg, 1 tab, No Longer Route: PO, Active 2017 [facility] Drug form: TAB, BID, Start date: 03/18/18 18:00:00 CDT, Duration: 30 day, Stop date: 04/17/18 17:00:00 CDTNotes: Do not exceed 4 gm/day. (Same as: Tylenol) Roxicodone 5 mg, 1 tab, No Longer Route: PO, Active 2017 [facility] Drug form: TAB, BID, Start date: 03/18/18 18:00:00 CDT, Duration: 30 day, Stop date: 04/17/18 17:00:00 CDTNotes: (Same as: Roxicodone) Acetaminophen 1 tab, Route: Inactive 325 MG / PO, Drug Form: 2017 [facility] Oxycodone TAB, Dosing Hydrochloride 5 Weight MG Oral Tablet 100.455, kg, [Percocet 5/325] BID, Start date: 03/18/18 17:00:00 CDT, Duration: 30 day, Stop date: 04/17/18 9:00:00 CDTNotes: Do not exceed 4gm/day of acetaminophen. (Same as: Percocet-5/325 ) Amlodipine 10 mg, 2 tab, No Longer Route: PO, Active 2017 [facility] Drug form: TAB, Daily, Dosing Weight 100.455, kg, Start date: 03/18/18 9:00:00 CDT, Duration: 30 day, Stop date: 04/16/18 9:00:00 CDTNotes: (Same as: Norvasc) Alprazolam 2 MG 2 mg, 2 tab, No Longer Oral Tablet Route: PO, Active 2017 [facility] [Xanax] Drug form: TAB, BID, Dosing Weight 100.455, kg, PRN as needed for anxiety, Start date: 03/17/18 23:20:00 CDT, Duration: 30 day, Stop date: 04/16/18 23:19:00 CDTNotes: With food or milk (Same as: Xanax) Vancomycin 500 mg, Route: Inactive Pharmacy Dosing IVPB, ONCE, 2017 [facility] + Sodium Start date: Chloride 0.9% IV [...] cap, No Longer Route: PO, Active 2017 [facility] Drug form: CAP, Bedtime, Dosing Weight 100.455, kg, Start date: 03/17/18 21:00:00 CDT, Duration: 30 day, Stop date: 04/15/18 21:00:00 CDTNotes: (Same As: Flomax) "Do Not Crush" carvedilol 3.125 mg, 1 No Longer tab, Route: Active 2018 [facility] PO, Drug form: TAB, Q12H, Dosing Weight 100.455, kg, Start date: 03/17/18 21:00:00 CDT, Duration: 30 day, Stop date: 04/16/18 9:00:00 CDTNotes: Give with food. (Same As: Coreg) Hydralazine 25 mg, 1 tab, Inactive Hydrochloride 25 Route: PO, 2018 [facility] MG Oral Tablet Drug form: TAB, TID, Dosing Weight 100.455, kg, Start date: 03/17/18 17:00:00 CDT, Duration: 30 day, Stop date: 04/16/18 13:00:00 CDTNotes: (Same as: Apresoline) May interfere w/enteral feedings Take With Food. Lasix 80 mg, 4 tab, No Longer Route: PO, Active 2017 [facility] Drug form: TAB, BID, Dosing Weight 100.455, kg, Start date: 03/17/18 17:00:00 CDT, Duration: 30 day, Stop date: 04/16/18 9:00:00 CDTNotes: (Same as: Lasix) May cause GI upset. Give with food or milk. Hydralazine 10 mg, 0.5 mL, No Longer Route: IVP, Active 2017 [facility] Drug form: INJ, Q4H, Dosing Weight 100.455, kg, PRN Elevated BP, Start date: 03/17/18 15:10:00 CDT, Duration: 30 day, Stop date: 04/16/18 15:09:00 CDTNotes: (Same as: Apresoline) Push over 5 minutes Acetaminophen 1 tab, Route: No Longer 325 MG / PO, Drug Form: Active 2018 [facility] Hydrocodone TAB, Dosing Bitartrate 5 MG Weight Oral Tablet 100.455, kg, [[place] 5/325] Q4H, PRN Pain Score 4-6, Start date: 03/17/18 15:10:00 CDT, Duration: 30 day, Stop date: 04/16/18 15:09:00 CDTNotes: (Same as: [place] 325/5) Do not exceed 4gm/day of acetaminophen. phenol 1 spray, No Longer Route: TOP, Active 2017 [facility] TID, Drug form: SPRY, PRN Sore Throat, Start date: 03/17/18 15:08:00 CDT, Duration: 30 day, Stop date: 04/16/18 15:07:00 CDTNotes: Chloraseptic [place] (Same as: Chloraseptic, Sore Throat [place]) WASTE: F/P - Black; E - Municipal Trash Bin Furosemide 80 MG 80 mg=1 tab, Active Oral Tablet PO, BID, 0 2018 [facility] [Lasix] Refill(s) amLODIPine 10 mg 10 mg=1 tab, Active oral tablet PO, Daily, # 2018 [facility] 30 tab, 0 Refill(s) carvedilol 3.125 3.125 mg=1 Active mg oral tablet tab, PO, Q12H, 2018 [facility] # 60 tab, 0 Refill(s) calcium acetate 2,001 mg=3 Active 667 MG Oral cap, PO, TID, 2018 [facility] Capsule 0 Refill(s) Acetaminophen 1 tab, PO, Active 325 MG / BID, 0 2018 [facility] Oxycodone Refill(s) Hydrochloride 5 MG Oral Tablet [Percocet 5/325] Hydralazine 25 mg=1 tab, Active Hydrochloride 25 PO, TID, # 270 2018 [facility] MG Oral Tablet tab, 1 Refill(s) tamsulosin 0.4 0.4 mg=1 cap, Active mg oral capsule PO, Bedtime, 0 2018 [facility] Refill(s) heparin 5,000 unit, 1 No Longer mL, Route: Active 2017 [facility] SUB-Q, Drug form: INJ, Q12H, Dosing Weight 98.182, kg, Start date: 03/17/18 9:00:00 CDT, Duration: 30 day, Stop date: 04/15/18 21:00:00 CDTNotes: porcine heparin heparin 10,000 unit, No Longer 10 mL, Route: Active 2017 [facility] DIAL[facility]IS, Drug form: INJ, ONCALL, Dosing Weight 100.455, kg, Start date: 03/17/18 8:00:00 CDT, Duration: 1 doses or times Mannitol 12.5 gm, 50 Inactive mL, Route: 2018 [facility] IVPB, Drug form: INJ, ONCE, Dosing Weight 100.455, Start date: 03/17/18 7:41:00 CDT, Stop date: 03/17/18 7:41:00 CDTNotes: (Same as: Osmitrol) Infuse through 5 micron or smaller filter WASTE: F/P - Sink; E - Municipal Trash Bin Vancomycin Route: MISC, No Longer Drug form: Active 2017 [facility] INJ, ONCALL, Dosing Weight 98.182, kg, Start [...] 0.9% (Bolus) IV ml/hr, Infuse Active 2017 [facility] Over: 1 hr, Route: IV, 2,000, Drug form: INJ, ONCE, Priority: STAT, Dosing Weight 98.182 kg, Start date: 03/17/18 7:00:00 CDT, PRN Dialysis cefepime 1 gm, Route: No Longer IVPB, [id number], Active 2017 [facility] Dosing Weight 98.182, kg, (CrCl Notes: (Same As: Maxipime) MEDICATION WASTE Product Size: 1000 mg Product Wasted: ___ mg Saline Flush 10 ml, Route: No Longer 0.9% IVP, Drug Active 2017 [facility] Form: INJ, Dosing Weight 98.182, kg, PRN, PRN Line Flush, Start date: 03/17/18 6:53:00 CDT, Duration: 30 day, Stop date: 04/16/18 6:52:00 CDTNotes: (Same as: BD Posiflush) Acetaminophen 650 mg, 2 tab, No Longer Route: PO, Active 2017 [facility] Drug form: TAB, Q4H, Dosing Weight 98.182, kg, PRN Pain 1-3/Temp > 100.4 F, Start date: 03/17/18 6:53:00 CDT, Duration: 30 day, Stop date: 04/16/18 6:52:00 CDTNotes: Do not exceed 4 gm/day. (Same as: Tylenol) Insulin Lispro 4 unit, 0.04 No Longer mL, Route: Active 2017 [facility] SUB-Q, Drug form: SOLN, TID-Before Meals, Dosing [...] No Longer IM, Drug form: Active 2018 [facility] PDR/INJ, PRN, Dosing Weight 98.182, kg, PRN Blood Glucose Results, Start date: 03/17/18 6:49:00 CDT, Duration: 30 day, Stop date: 04/16/18 6:48:00 CDT Dextrose 50% 25 gm, 50 mL, No Longer Syringe Route: IVP, Active 2017 [facility] Drug Form: INJ, Dosing Weight 98.182, kg, PRN, PRN Blood Glucose Results, Start date: 03/17/18 6:49:00 CDT, Duration: 30 day, Stop date: 04/16/18 6:48:00 CDT Zosyn 4.5 gm, Route: Inactive IVPB, ONCE, 2017 [facility] Dosing Weight 98.182, kg, Priority: STAT, Start date: 03/17/18 5:49:00 CDT, Stop date: 03/17/18 5:49:00 CDT, ABX Indication: PneumoniaNotes : (Same as: Zosyn) Dosing based on Piperacillin component MEDICATION WASTE Product Size: 4500 mg Product Wasted: ___ mg Vancomycin 2,000 mg, Inactive Route: IVPB, 2017 [facility] ONCE, Dosing Weight 98.182, kg, Priority: STAT, [...] No Longer 0.9% IVP, Drug Active 2017 [facility] Form: INJ, Dosing Weight 118.182, kg, PRN, PRN Line Flush, Start date: 03/17/18 2:36:00 CDT, Duration: 30 day, Stop date: 04/16/18 2:35:00 CDTNotes: (Same as: BD Posiflush) Saline Flush 10 mL, Route: Inactive 0.9% IVP, Drug 2017 [facility] Form: INJ, Dosing Weight 98.6, kg, PRN, PRN Line Flush, Start date: 01/22/18 19:31:00 CDT, Duration: 30 day, Stop date: 02/21/18 19:30:00 CDTNotes: (Same as: BD Posiflush) Lasix 80 mg, 2 tab, No Longer Route: PO, Active 2017 [facility] Drug form: TAB, Daily, Dosing Weight 109.091, kg, Start date: 12/21/17 9:00:00 CDT, Stop date: 01/15/18 9:00:00 CDTNotes: (Same as: Lasix) May cause GI upset. Give with food or milk. calcitriol 0.5 0.5 No Longer mcg oral capsule microgram=1 Active 2018 [facility] cap, PO, Daily, # 30 cap, 0 Refill(s), Pharmacy: [facility] Ergocalciferol 50,000 Active 95330 UNT Oral IntlUnit=1 2017 [facility] Capsule cap, PO, qWeek, # 5 cap, 0 Refill(s), Pharmacy: [facility] Calcium 2,000 mg=4 No Longer Carbonate 500 MG tab, PO, TID, Active 2018 [facility] Chewable Tablet # 168 tab, 0 Refill(s), Pharmacy: [facility] sevelamer 2,400 mg=3 No Longer carbonate 800 mg tab, PO, Active 2017 [facility] oral tablet TID-Meals, # 270 tab, 0 Refill(s), Pharmacy: [facility] Furosemide 80 MG 80 mg, PO, No Longer Oral Tablet Daily, # 30 Active 2017 [facility] [Lasix] ea, 0 Refill(s), Pharmacy: [facility] carvedilol 3.125 3.125 mg=1 No Longer mg oral tablet tab, PO, Q12H, Active 2017 [facility] # 60 tab, 0 Refill(s), Pharmacy: [facility] amLODIPine 5 mg 10 mg=2 tab, No Longer oral tablet PO, Daily, # Active 2017 [facility] 60 tab, 0 Refill(s), Pharmacy: [facility] Calcium 2,000 mg, 20 No Longer Gluconate mL, Route: IV, Active 2017 [facility] ONCE, Dosing Weight 109.091, kg, Start date: 12/20/17 6:50:00 CDT, Stop date: 12/20/17 6:50:00 CDTNotes: WASTE: F/P - Sink; E - Municipal Trash Bin Coreg 3.125 mg, 1 No Longer tab, Route: Active 2017 [facility] PO, Drug form: TAB, Q12H, Dosing Weight 109.091, kg, Start date: 12/19/17 21:00:00 CDT, Duration: 30 day, Stop date: 01/18/18 9:00:00 CDTNotes: Give with food. (Same As: Coreg) Lasix 80 mg, 8 mL, No Longer Route: IV, Active 2017 [facility] Drug form: INJ, Daily, Dosing Weight 109.091, kg, Start date: 12/19/17 9:00:00 CDT, Stop date: 01/15/18 9:00:00 CDTNotes: (Same as: Lasix) MEDICATION WASTE Product Size: 40 mg Product Wasted: ___ mg Vitamin D2 50,000 No Longer IntlUnit, 1 Active 2017 [facility] cap, Route: PO, Drug form: CAP, qWeek, Dosing Weight 109.091, kg, Start date: 12/19/17 9:00:00 CDT, Duration: 30 day, Stop date: 01/16/18 9:00:00 CDTNotes: (Same as: Vitamin D) "Do Not Crush" Calcium 1,000 mg, 10 Inactive Gluconate mL, Route: 2017 [facility] IVPB, ONCE, Dosing Weight 109.091, kg, Start date: 12/19/17 6:39:00 CDT, Stop date: 12/19/17 6:39:00 CDTNotes: WASTE: F/P - Sink; E - Municipal Trash Bin Calcium 2,000 mg, 20 Inactive Gluconate mL, Route: 2017 [facility] IVPB, ONCE, Dosing Weight 109.091, kg, Start date: 12/18/17 15:44:00 CDT, Stop date: 12/18/17 15:44:00 CDTNotes: WASTE: F/P - Sink; E - Municipal Trash Bin Calcium 2,000 mg, 4 No Longer Carbonate tab, Route: Active 2017 [facility] PO, Drug form: CHEWTAB, TID, Dosing Weight 90.909, kg, Start date: 12/18/17 13:00:00 CDT, Duration: 30 day, Stop date: 01/17/18 9:00:00 CDTNotes: (Same As: Tums) Calcium Carbonate 500 pj=218 mg elemental calcium Dose= mg calcium carbonate ( mg elemental calcium) Calcium 2,000 mg, 20 Inactive Gluconate mL, Route: 2017 [facility] IVPB, ONCE, Dosing Weight 109.091, kg, Priority: STAT, Start date: 12/18/17 5:53:00 CDT, Stop date: 12/18/17 5:53:00 CDTNotes: WASTE: F/P - Sink; E - Municipal Trash Bin Calcium 2,000 mg, 20 No Longer Gluconate mL, Route: Active 2017 [facility] IVPB, ONCE, Dosing Weight 109.091, kg, Start date: 12/17/17 23:35:00 CDT, Stop date: 12/17/17 23:35:00 CDTNotes: WASTE: F/P - Sink; E - Municipal Trash Bin RenaGel 2,400 mg, 3 No Longer tab, Route: Active 2017 [facility] PO, Drug form: TAB, TID-Meals, Dosing Weight 109.091, kg, Start date: 12/17/17 12:00:00 CDT, Duration: 30 day, Stop date: 01/16/18 8:00:00 CDTNotes: Same as: Renvela Lasix 80 mg, 8 mL, No Longer Route: IV, Active 2017 [facility] Drug form: INJ, Q12H, Dosing Weight 109.091, kg, Start date: 12/17/17 9:00:00 CDT, Stop date: 01/15/18 9:00:00 CDTNotes: (Same as: Lasix) MEDICATION WASTE Product Size: 40 mg Product Wasted: ___ mg Venofer 200 mg, 10 mL, No Longer Route: IVPB, Active 2017 [facility] Daily, Dosing Weight 109.091, kg, Start date: 12/17/17 9:00:00 CDT, Duration: 5 doses or times, Stop date: 12/21/17 9:00:00 CDTNotes: Each 5ml contains 100mg elemental iron. Mix with NS Non-Formulary (Same as:Venofer) Administer IV only. MEDICATION WASTE Product Size: 100 mg Product Wasted: ___ mg Calcium 2,000 mg, 20 Inactive Gluconate mL, Route: 2018 [facility] IVPB, ONCE, Dosing Weight 109.091, kg, Start date: 12/17/17 6:35:00 CDT, Stop date: 12/17/17 6:35:00 CDTNotes: WASTE: F/P - Sink; E - Municipal Trash Bin Kayexalate 30 gm, 120 mL, Inactive Route: PO, 2017 [facility] Drug form: SUSP, ONCE, Dosing Weight 109.091, kg, Start date: 12/16/17 19:11:00 [place] [place], Stop date: 12/16/17 19:11:00 CSTNotes: (sodium polystyrene sulfonate 15 gm/60 ml CANDACE) Shake well before use. (Same as: [place], SPS) sodium 50 mEq, 50 ml, Inactive bicarbonate 8.4% Route: IVP, 2017 [facility] Drug Form: INJ, Dosing Weight 109.091, kg, ONCE, Start date: 12/16/17 19:11:00 [place] [place], Stop date: 12/16/17 19:11:00 CSTNotes: (sodium bicarb 8.4% (1 mEq/ml) 50 ml syringe) Amlodipine 10 mg, 2 tab, No Longer Route: PO, Active 2017 [facility] Drug form: TAB, Daily, Dosing Weight 109.091, kg, Start date: 12/16/17 9:00:00 [place], Duration: 30 day, Stop date: 01/14/18 9:00:00 CDTNotes: (Same as: Norvasc) Kayexalate 30 gm, 120 mL, Inactive Route: PO, 2017 [facility] Drug form: SUSP, ONCE, Dosing Weight 109.091, kg, Start date: 12/16/17 7:38:00 [place] [place], Stop date: 12/16/17 7:38:00 CSTNotes: (sodium polystyrene sulfonate 15 gm/60 ml CANDACE) Shake well before use. (Same as: Sierraxalate, SPS) Calcium 2,000 mg, 20 Inactive Gluconate mL, Route: 2018 [facility] IVPB, ONCE, Dosing Weight 109.091, kg, Start date: 12/15/17 17:43:00 [place] [place], Stop date: 12/15/17 17:43:00 CSTNotes: WASTE: F/P - Sink; E - Municipal Trash Bin Dilaudid 1 mg, 0.5 tab, No Longer Route: PO, Active 2017 [facility] Drug form: TAB, Q4H, Dosing Weight 109.091, kg, PRN Pain Score 7-10, Start date: 12/15/17 15:38:00 [place] [place], Duration: 30 day, Stop date: 01/14/18 15:37:00 CDTNotes: (Same as: Dilaudid) Morphine 6 mg, 3 mL, Inactive Route: PO, 2017 [facility] Drug form: SOLN, Q4H, Dosing Weight 109.091, kg, PRN Pain Score 7-10, Start date: 12/15/17 13:02:00 [place] [place], Duration: 30 day, Stop date: 01/14/18 13:01:00 CDTNotes: (Same as:MORPhine Sulfate) Acetaminophen 2 tabs, PO, No Longer 300 MG / Codeine BID, 0 Active 2018 [facility] Phosphate 60 MG Refill(s) Oral Tablet [Tylenol with Codeine #4] Alprazolam 2 MG 2 mg=1 tab, Active Oral Tablet PO, BID, PRN 2018 [facility] [Xanax] as needed for anxiety, 0 Refill(s) Amlodipine 10 MG 1 cap, PO, No Longer / Benazepril TID, 0 Active 2018 [facility] hydrochloride 20 Refill(s) MG Oral Capsule [Lotrel 1020] lisinopril 20 mg 20 mg=1 tab, No Longer oral tablet PO, Daily, 0 Active 2018 [facility] Refill(s) Calcium 1,500 mg, 3 No Longer Carbonate tab, Route: Active 2018 [facility] PO, Drug form: CHEWTAB, TID, Dosing Weight 90.909, kg, Start date: 12/15/17 10:06:00 [place] [place], Duration: 30 day, Stop date: 01/14/18 9:00:00 CDTNotes: (Same As: [place]) Calcium Carbonate 500 oy=676 mg elemental calcium Dose= mg calcium carbonate ( mg elemental calcium) Calcitriol 0.25 No Longer microgram, 1 Active 2018 [facility] cap, Route: PO, Drug form: CAP, Daily, Dosing Weight 90.909, kg, Start date: 12/15/17 10:06:00 [place] [place], Duration: 30 day, Stop date: 01/14/18 9:00:00 CDTNotes: (Same As: Rocaltrol) Ondansetron 4 mg, 2 mL, No Longer Route: IVP, Active 2018 [facility] Drug form: INJ, Q6H, Dosing Weight 90.909, kg, PRN Nausea & Vomiting, Start date: 12/15/17 8:31:00 [place] [place], Duration: 30 day, Stop date: 01/14/18 8:30:00 CDTNotes: (Same as: Ed) MEDICATION WASTE Product Size: 4 mg Product Wasted: ___ mg Acetaminophen 650 mg, 2 tab, No Longer Route: PO, Active 2018 [facility] Drug form: TAB, Q4H, Dosing Weight 90.909, kg, PRN Pain 1-3/Temp > 100.4 F, Start date: 12/15/17 8:31:00 [place] [place], Duration: 30 day, Stop date: 01/14/18 8:30:00 CDTNotes: Do not exceed 4 gm/day. (Same as: Tylenol) Acetaminophen 1 tab, Route: No Longer 325 MG / PO, Drug Form: Active 2018 [facility] Hydrocodone TAB, Dosing Bitartrate 5 MG Weight 90.909, Oral Tablet kg, Q4H, PRN Pain Score 4-6, Start date: 12/15/17 8:31:00 [place] [place], Duration: 30 day, Stop date: 01/14/18 8:30:00 CDTNotes: (Same as: [place] 325/5) Do not exceed 4gm/day of acetaminophen. Saline Flush 10 mL, Route: No Longer 0.9% IVP, Drug Active 2017 [facility] Form: INJ, Dosing Weight 90.909, kg, PRN, PRN Line Flush, Start date: 12/15/17 6:30:00 [place] [place], Duration: 30 day, Stop date: 01/14/18 7:29:00 CDTNotes: (Same as: BD Posiflush) Lasix 80 mg, 8 mL, No Longer Route: IV, Active 2017 [facility] Drug form: INJ, Q8H, Dosing Weight 109.091, kg, Start date: 12/15/17 4:45:00 [place], Stop date: 01/15/18 16:45:00 CDTNotes: (Same as: Lasix) MEDICATION WASTE Product Size: 40 mg Product Wasted: ___ mg Allergies, Adverse Reactions, Alerts Substance Category Reaction Severity Reaction Status Date Comments Source type Reported No Known Assertion Drug Medication allergy [facility] Allergies Immunizations Immunization Date Site Status Last Updated Comments Source Given pneumococcal Right completed [facility] 13-valent 8 [facility] Results Order Name Results Value Reference Date Interpretation Comments Source Range CHEM PANEL Phosphorus 6.1 2.5 - 4.5 07/23 [facility] ELECTROLYTE AGAP 14.8 10.0 - 07/23 S 20. [facility] ELECTROLYTE eGFR 4 07/23 Result S Comment: The [facility] eGFR is calculated using the CKD-EPI formula. In most young, healthy individuals the eGFR will be >90 mL/min/1.73m2 . The eGFR declines with age. An eGFR of 60-89 may be normal in some populations, particularly the elderly, for whom the CKD-EPI formula has not been extensively validated. Use of the eGFR is not recommended in the following populations:< br/>
Joan viduals with unstable creatinine concentration s, including patients and those with serious co-morbid conditions.<b r/>
Patie nts with extremes in muscle mass or diet.

The data above are obtained from the National Kidney Disease Education Program (NKDEP) which additionally recommends that when the eGFR is used in patients with extremes of body mass index for purposes of drug dosing, the eGFR should be multiplied by the estimated BMI. ELECTROLYTE CO2 27 24 - 32 10/ MH S /2017 [facility] ELECTROLYTE Calcium Lvl 7.9 8.5 - 10.5 10 MH S /2017 [facility] ELECTROLYTE Creatinine 12.90 0.50 - 10 MH S Lvl 1.40 /2017 [facility] ELECTROLYTE BUN 60 7 - 22 07/23 MH S /2017 [facility] ELECTROLYTE Sodium Lvl 139 135 - 145 07/23 MH S /2017 [facility] ELECTROLYTE Glucose Lvl 93 70 - 99 07/23 MH S /2017 [facility] ELECTROLYTE Chloride Lvl 102 95 - 109 07/23 MH S [facility] ELECTROLYTE Potassium 4.8 3.5 - 5.1 07/23 MH S Lvl /2017 [facility] HEMATOLOGY MCHC 35.3 32.0 - 10 MH 36.0 [facility] HEMATOLOGY Hgb 7.8 14.0 - 07/23 MH 18.0 [facility] HEMATOLOGY Hct 22.0 42.0 - 07/23 MH 54.0 [facility] HEMATOLOGY RBC 2.68 4.70 - 07/23 MH 6.10 [facility] HEMATOLOGY WBC 4.4 3.7 - 10.4 07/23 [facility] HEMATOLOGY RDW 14.5 11.5 - 07/23 MH 14.5 [facility] HEMATOLOGY MCV 82.1 80.0 - 07/23 MH 94.0 [facility] HEMATOLOGY MCH 29.0 27.0 - 07/23 MH 31.0 [facility] HEMATOLOGY Platelet 128 133 - 450 07/23 [facility] HEMATOLOGY MPV 7.3 7.4 - 10.4 07/23 [facility] HEMATOLOGY Monocytes # 0.4 0.0 - 0.8 07/23 [facility] HEMATOLOGY Eosinophils 0.2 0.0 - 0.5 07/23 MH # /2017 [facility] HEMATOLOGY Monocytes 9.7 2.0 - 12.0 07/23 [facility] HEMATOLOGY Eosinophils 3.7 0.0 - 4.0 07/23 [facility] HEMATOLOGY Basophils 0.8 0.0 - 1.0 07/23 [facility] HEMATOLOGY Neutrophils 3.0 1.5 - 8.1 07/23 MH # /2017 [facility] HEMATOLOGY Lymphocytes 0.8 1.0 - 5.5 07/23 MH # [facility] HEMATOLOGY Segs 67.6 45.0 - 07/23 MH 75.0 2018 [facility] HEMATOLOGY Lymphocytes 18.2 20.0 - 07/23 MH 40.0 2018 [facility] CHEM PANEL Magnesium 2.5 1.8 - 2.4 07/22 [facility] CHEM PANEL Phosphorus 8.3 2.5 - 4.5 07/22 [facility] ELECTROLYTE CO2 22 24 - 32 07/22 [facility] ELECTROLYTE Calcium Lvl 7.5 8.5 - 10.5 07/22 [facility] ELECTROLYTE Chloride Lvl 98 95 - 109 07/22 [facility] ELECTROLYTE eGFR 2 07/22 S Comment: The [facility] eGFR is calculated using the CKD-EPI formula. In most young, healthy individuals the eGFR will be >90 mL/min/1.73m2 . The eGFR declines with age. An eGFR of 60-89 may be normal in some populations, particularly the elderly, for whom the CKD-EPI formula has not been extensively validated. Use of the eGFR is not recommended in the following populations:< br/>
Joan viduals with unstable creatinine concentration s, including patients and those with serious co-morbid conditions.<b r/>
Patie nts with extremes in muscle mass or diet.

The data above are obtained from the National Kidney Disease Education Program (NKDEP) which additionally recommends that when the eGFR is used in patients with extremes of body mass index for purposes of drug dosing, the eGFR should be multiplied by the estimated BMI. ELECTROLYTE Creatinine 19.20 0.50 - 07/22 MH S Lvl 1.40 [facility] ELECTROLYTE BUN 97 7 - 22 07/22 [facility] ELECTROLYTE Potassium 4.7 3.5 - 5.1 07/22 S Lv [facility] ELECTROLYTE Sodium Lvl 135 135 - 145 07/22 S [facility] ELECTROLYTE Glucose Lvl 82 70 - 99 07/22 S [facility] ELECTROLYTE AGAP 19.7 10.0 - 07/22 MH S 20.0 [facility] HEMATOLOGY WBC 4.9 3.7 - 10.4 07/22 [facility] HEMATOLOGY RBC 2.85 4.70 - 07/22 MH 6. [facility] HEMATOLOGY MCV 82.3 80.0 - 07/22 MH 94.0 [facility] HEMATOLOGY MCH 28.8 27.0 - 07/22 MH 31.0 [facility] HEMATOLOGY Hgb 8.2 14.0 - 07/22 MH 18.0 [facility] HEMATOLOGY Hct 23.4 42.0 - 07/22 MH 54.0 [facility] HEMATOLOGY RDW 15.0 11.5 - 07/22 MH 14. [facility] HEMATOLOGY MCHC 35.0 32.0 - 07/22 MH 36.0 [facility] HEMATOLOGY MPV 7.4 7.4 - 10.4 07/22 [facility] HEMATOLOGY Platelet 140 133 - 450 07/22 [facility] HEMATOLOGY Lymphocytes 20.3 20.0 - 07/22 MH 40.0 [facility] HEMATOLOGY Basophils 1.0 0.0 - 1.0 07/22 [facility] HEMATOLOGY Segs 67.1 45.0 - 07/22 MH 75.0 [facility] HEMATOLOGY Neutrophils 3.3 1.5 - 8.1 07/22 MH # /2017 [facility] HEMATOLOGY Eosinophils 3.1 0.0 - 4.0 07/22 [facility] HEMATOLOGY Monocytes 8.5 2.0 - 12.0 07/22 [facility] HEMATOLOGY Monocytes # 0.4 0.0 - 0.8 07/22 [facility] HEMATOLOGY Lymphocytes 1.0 1.0 - 5.5 07/22 # /2017 [facility] HEMATOLOGY Eosinophils 0.1 0.0 - 0.5 07/22 # [facility] IMMUNOLOGY Hep Bs Ag Negative Negative 07/22 MH *NA* /2017 [facility] (07/22/18 6:17 AM) CARDIAC proBNP 60664 0 - 125 07/22 ENZYMES [facility] CARDIAC Troponin-I <0.02 0.00 - 07/22 ENZYMES 0. [facility] CARDIAC Total CK 91 12 - 191 07/22 ENZYMES [facility] CHEM PANEL Lipase Lvl 95 73 - 393 07/22 [facility] CHEM PANEL Globulin 3.2 2.7 - 4.2 07/22 [facility] CHEM PANEL A/G Ratio 0.9 0.7 - 1.6 07/22 [facility] CHEM PANEL B/C Ratio 5 6 - 25 07/22 [facility] CHEM PANEL AGAP 18.7 10.0 - 07/22 MH 20.0 /2017 [facility] CHEM PANEL eGFR 2 07/22 Result Comment: The [facility] eGFR is calculated using the CKD-EPI formula. In most young, healthy individuals the eGFR will be >90 mL/min/1.73m2 . The eGFR declines with age. An eGFR of 60-89 may be normal in some populations, particularly the elderly, for whom the CKD-EPI formula has not been extensively validated. Use of the eGFR is not recommended in the following populations:< br/>
Joan viduals with unstable creatinine concentration s, including patients and those with serious co-morbid conditions.<b r/>
Patie nts with extremes in muscle mass or diet.

The data above are obtained from the National Kidney Disease Education Program (NKDEP) which additionally recommends that when the eGFR is used in patients with extremes of body mass index for purposes of drug dosing, the eGFR should be multiplied by the estimated BMI. CHEM PANEL Calcium Lvl 7.6 8.5 - 10.5 07/22 [facility] CHEM PANEL CO2 24 24 - 32 07/22 [facility] CHEM PANEL Chloride Lvl 98 95 - 109 07/22 [facility] CHEM PANEL Potassium 4.7 3.5 - 5.1 07/22 MH Lvl [facility] CHEM PANEL Sodium Lvl 136 135 - 145 07/22 [facility] CHEM PANEL Albumin Lvl 2.8 3.5 - 5.0 07/22 [facility] CHEM PANEL ALT 13 0 - 65 07/22 [facility] CHEM PANEL AST 9 0 - 37 07/22 [facility] CHEM PANEL Alk Phos 57 39 - 136 07/22 [facility] CHEM PANEL Total 6.0 6.4 - 8.4 07/22 [facility] CHEM PANEL Bili Total 0.4 0.2 - 1.3 07/22 [facility] CHEM PANEL Creatinine 18.60 0.50 - 07/22 MH Lvl 1.40 [facility] CHEM PANEL Glucose Lvl 89 70 - 99 07/22 [facility] CHEM PANEL BUN 95 7 - 22 07/22 [facility] HEMATOLOGY Segs 66.2 45.0 - 07/22 MH 75.0 /2017 [facility] HEMATOLOGY Lymphocytes 21.4 20.0 - 07/22 MH 40.0 [facility] HEMATOLOGY Monocytes 7.7 2.0 - 12.0 07/22 [facility] HEMATOLOGY Lymphocytes 0.9 1.0 - 5.5 07/22 MH # /2017 [facility] HEMATOLOGY Basophils 1.2 0.0 - 1.0 07/22 [facility] HEMATOLOGY Monocytes # 0.3 0.0 - 0.8 07/22 [facility] HEMATOLOGY Eosinophils 0.1 0.0 - 0.5 07/22 MH # /2017 [facility] HEMATOLOGY Neutrophils 2.7 1.5 - 8.1 07/22 MH # /2017 [facility] HEMATOLOGY Eosinophils 3.5 0.0 - 4.0 07/22 [facility] HEMATOLOGY PT 14.4 12.0 - 07/22 MH 14.7 [facility] HEMATOLOGY INR 1.12 0.85 - 07/22 MH 1. [facility] HEMATOLOGY PTT 37.1 22.9 - 07/22 MH 35.8 [facility] HEMATOLOGY RDW 14.8 11.5 - 07/22 MH 14. [facility] HEMATOLOGY Platelet 143 133 - 450 07/22 [facility] HEMATOLOGY MPV 7.6 7.4 - 10.4 07/22 [facility] HEMATOLOGY RBC 2.83 4.70 - 07/22 MH 6. [facility] HEMATOLOGY WBC 4.1 3.7 - 10.4 07/22 [facility] HEMATOLOGY MCHC 35.2 32.0 - 07/22 MH 36.0 [facility] HEMATOLOGY MCH 28.8 27.0 - 07/22 MH 31.0 [facility] HEMATOLOGY Hgb 8.1 14.0 - 07/22 MH 18.0 [facility] HEMATOLOGY MCV 81.9 80.0 - 07/22 MH 94.0 [facility] HEMATOLOGY Hct 23.2 42.0 - 07/22 MH 54.0 [facility] CHEM PANEL BUN 86 7 - 22 07/20 [facility] CHEM PANEL Chloride Lvl 97 95 - 109 07/20 [facility] CHEM PANEL Potassium 5.2 3.5 - 5.1 07/20 MH Lvl /2017 [facility] CHEM PANEL Sodium Lvl 135 135 - 145 07/20 [facility] CHEM PANEL Creatinine 17.30 0.50 - 10 MH Lvl 1.40 /2017 [facility] CHEM PANEL Glucose Lvl 98 70 - 99 07/20 [facility] CHEM PANEL eGFR 3 07/20 Comment: The [facility] eGFR is calculated using the CKD-EPI formula. In most young, healthy individuals the eGFR will be >90 mL/min/1.73m2 . The eGFR declines with age. An eGFR of 60-89 may be normal in some populations, particularly the elderly, for whom the CKD-EPI formula has not been extensively validated. Use of the eGFR is not recommended in the following populations:< br/>
Joan viduals with unstable creatinine concentration s, including patients and those with serious co-morbid conditions.<b r/>
Patie nts with extremes in muscle mass or diet.

The data above are obtained from the National Kidney Disease Education Program (NKDEP) which additionally recommends that when the eGFR is used in patients with extremes of body mass index for purposes of drug dosing, the eGFR should be multiplied by the estimated BMI. CHEM PANEL Alk Phos 70 39 - 136 07/20 [facility] CHEM PANEL AST 10 0 - 37 07/20 [facility] CHEM PANEL Bili Total 0.4 0.2 - 1.3 07/20 [facility] CHEM PANEL Total 6.8 6.4 - 8.4 07/20 [facility] CHEM PANEL Calcium Lvl 8.1 8.5 - 10.5 07/20 [facility] CHEM PANEL CO2 24 24 - 32 07/20 [facility] CHEM PANEL ALT 19 0 - 65 07/20 [facility] CHEM PANEL Albumin Lvl 3.3 3.5 - 5.0 07/20 [facility] CHEM PANEL A/G Ratio 0.9 0.7 - 1.6 07/20 [facility] CHEM PANEL AGAP 19.2 10.0 - 10 MH 20.0 /2018 [facility] CHEM PANEL Globulin 3.5 2.7 - 4.2 07/20 [facility] CHEM PANEL B/C Ratio 5 6 - 25 07/20 [facility] HEMATOLOGY Platelet 184 133 - 450 07/20 [facility] HEMATOLOGY MPV 6.8 7.4 - 10.4 07/20 [facility] HEMATOLOGY MCHC 35.4 32.0 - 07/20 MH 36.0 [facility] HEMATOLOGY RDW 15.1 11.5 - 07/20 MH 14. [facility] HEMATOLOGY Hct 26.1 42.0 - 07/20 MH 54.0 [facility] HEMATOLOGY MCV 81.4 80.0 - 07/20 MH 94.0 [facility] HEMATOLOGY MCH 28.8 27.0 - 07/20 MH 31.0 [facility]EMAT[facility] WBC 5.4 3.7 - 10.4 07/20 [facility]EMAT[facility] RBC 3.20 4.70 - 07/20 MH 6. [facility]EMAT[facility] Hgb 9.2 14.0 - 07/20 MH 18.0 [facility]EMAT[facility] Segs 74.0 45.0 - 07/20 MH 75.0 [facility]EMAT[facility] Lymphocytes 15.5 20.0 - 07/20 MH 40.0 [facility]EMAT[facility] Monocytes 6.7 2.0 - 12.0 07/20 [facility]EMAT[facility] Eosinophils 2.8 0.0 - 4.0 07/20 [facility]EMAT[facility] Basophils 1.0 0.0 - 1.0 07/20 [facility]EMAT[facility] Neutrophils 4.0 1.5 - 8.1 07/20 [facility] # /2017 [facility]EMAT[facility] Basophils # 0.1 0.0 - 0.2 07/20 [facility]EMAT[facility] Eosinophils 0.2 0.0 - 0.5 07/20 [facility]EMAT[facility] Lymphocytes 0.8 1.0 - 5.5 07/20 /2017 [facility] HEMATOLOG[facility] Monocytes # 0.4 0.0 - 0.8 07/20 [facility] REFERENCE Test Name HLA TYPING 05/23 [facility] LAB RESULTS RESULTS /2017 [facility] BLOOD BANK ABO/RH O POS 05/23 [facility] RESULTS Confirm /2017 [facility] URINE AND UA Renal Epi RARE <=0 05/23 [facility] STOOL [facility] URINE AND UA <=1.0 0.1 - 1.0 05/23 [facility] STOOL Urobilinogen mg/dL [facility] URINE AND UA Glucose 100mg/dL 05/[address] [facility] URINE AND UA Sq Epi Moderate Few /LPF 05/23 [facility] STOOL /LPF [facility] URINE AND UA Leuk Est Small Negative 05/23 [facility] *ABN* /2017 [facility] (05/23/18 10:20 AM) [place] URINE AND UA Ketones Negative Negative 05/23 [facility] mg/dL mg/dL [facility] URINE AND UA RBC <1 0 - 2 05/23 [facility] URINE AND UA WBC 9 0 - 5 05/23 [facility] URINE AND UA Nitrite Negative Negative 05/23 [facility] (05/23/18 10:20 AM) /2017 [facility] URINE AND UA Blood Trace Negative 05/23 [facility] *ABN* /2017 [facility] (05/23/18 10:20 AM) [place] URINE AND UA Bili Negative Negative 05/23 [facility] *NA* /2017 [facility] (05/23/18 10:20 AM) [place] URINE AND UA Mucus Few /LPF None Seen 05/23 [facility] /LPF [facility] URINE AND UA Protein >=300 Negative 05/23 [facility] mg/dL mg/dL [facility] URINE AND UA pH 6.5 5.0 - 8.0 05/23 [facility] [address] [place] [address] URINE AND UA Spec Grav 1.008 <=1.030 05/23 [facility] [address] [place] [address] URINE AND UA Turbidity Slight Clear 05/23 [facility] *ABN* /2017 [facility] (05/23/18 10:20 AM) [place] URINE AND UA Color Yellow Yellow 05/23 [facility] *NA* /2017 [facility] (05/23/18 10:20 AM) [place] URINE CHEM U Microalb 2940.0 05/23 [facility] [address] [place] [address] URINE CHEM U Prot/Creat 6.61 05/23 [facility] [address] [place] [address] URINE CHEM U Creatinine 55.00 05/23 [facility] [address] [place] [address] URINE CHEM U Protein 363.8 05/23 [facility] [address] [place] [address] ANEMIA % S[place] Fe 35 12 - 57 05/23 [facility] [address] [place] [address] ANEMIA UIBC 179 110 - 370 05/23 [facility] [address] [place] [address] ANEMIA TIBC 276 228 - 428 05/23 [facility] [address] [place] [address] ANEMIA Iron 97 45 - 160 05/23 [facility] [address] [place] [address] ANEMIA Ferritin Lvl 292 22 - 275 05/23 [facility] STUDY /2017 [facility] BLOOD BANK OP ABORh Int O POS 05/23 [facility] RESULTS [facility] CHEM PANEL Phosphorus 8.0 2.5 - 4.5 05/23 [facility] CHEM PANEL Magnesium 2.5 1.8 - 2.4 05/23 [facility] /2017 [facility] CHEM PANEL Vitamin D, 26.3 30.0 - 05/23 [facility] 25-OH, Total 100.0 [facility] CHEM PANEL Uric Acid 3.5 3.8 - 8.0 05/23 [facility] CHEM PANEL eGFR 7 05/23 Result Comment: The [facility] eGFR is Center calculated using the CKD-EPI formula. In most young, healthy individuals the eGFR will be >90 mL/min/1.73m2 . The eGFR declines with age. An eGFR of 60-89 may be normal in some populations, particularly the elderly, for whom the CKD-EPI formula has not been extensively validated. Use of the eGFR is not recommended in the following populations:< br/>
Joan viduals with unstable creatinine concentration s, including patients and those with serious co-morbid conditions.<b r/>
Patie nts with extremes in muscle mass or diet.

The data above are obtained from the National Kidney Disease Education Program (NKDEP) which additionally recommends that when the eGFR is used in patients with extremes of body mass index for purposes of drug dosing, the eGFR should be multiplied by the estimated BMI. CHEM PANEL Alk Phos 80 39 - 136 05/23 [facility] CHEM PANEL Bili Total 0.4 0.2 - 1.3 05/23 [facility] CHEM PANEL Albumin Lvl 4.3 3.5 - 5.0 05/23 [facility] CHEM PANEL ALT 22 0 - 65 05/23 [facility] CHEM PANEL Calcium Lvl 8.8 8.5 - 10.5 05/23 [facility] CHEM PANEL Total 8.1 6.4 - 8.4 05/23 [facility] CHEM PANEL AST 12 0 - 37 05/23 [facility] CHEM PANEL CO2 26 24 - 32 05/23 [facility]2017 [facility] CHEM PANEL Chloride Lvl 97 95 - 109 05/23 [facility] CHEM PANEL Potassium 3.8 3.5 - 5.1 05/23 [place] L[facility] /2017 [facility] CHEM PANEL Creatinine 8.22 0.50 - 05/23 [place] Lvl 1.40 /2017 Medical [place] CHEM PANEL Sodium Lvl 136 135 - 145 05/23 /2017 [facility] CHEM PANEL BUN 59 7 - 22 05/23 /2017 [facility] CHEM PANEL Glucose Lvl 98 70 - 99 05/23 [facility] CHEM PANEL Globulin 3.8 2.7 - 4.2 05/23 /2017 [facility] CHEM PANEL A/G Ratio 1.1 0.7 - 1.6 05/23 /2017 [facility] CHEM PANEL AGAP 16.8 10.0 - 05/23 [place] 20.0 /2017 [facility] CHEM PANEL B/C Ratio 7 6 - 25 05/23 [facility] /2017 [facility] Center DRUG SCREEN Phencyclidin Negative Negative 05/23 [facility] e Scr (05/23/18 9:55 AM) /2017 Medical Center DRUG SCREEN 6-Acetylmor Negative Negative 05/23 [place] [facility] (05/23/18 9:55 AM) /2017 [facility] DRUG SCREEN Opiate Scr Positive Negative 05/23 [place] *ABN* /2017 [facility] (05/23/18 9:55 AM) Center DRUG SCREEN Methadone Negative Negative 05/23 [place] [facility] (05/23/18 9:55 AM) /2017 [facility] DRUG SCREEN Rosa M Scr Negative Negative 05/23 [facility] (05/23/18 9:55 AM) /2017 [facility] DRUG SCREEN Cutoff See Note 05/23 [place] [facility] (05/23/18 9:55 AM) /2017 [facility] DRUG SCREEN Cocaine Scr Negative Negative 05/23 [place] (05/23/18 9:55 AM) /2017 [facility] Center DRUG SCREEN Amph Scr Negative Negative 05/23 [place] (05/23/18 9:55 AM) /2017 [facility] DRUG SCREEN Cannab Scr Negative Negative 05/23 [place] (05/23/18 9:55 AM) /2017 [facility] Center DRUG SCREEN Benzodiaz Positive Negative 05/23 [place] [facility] *ABN* /2017 [facility] (05/23/18 9:55 AM) Center DRUG SCREEN Opiate Qnt See Note 2 05/23 Result [place] (05/23/18 9:55 AM) /2017 Comment: Medical Opiates
Center oxycodone Positive 12 ng/mL DRUG SCREEN Benzodiaz See Note 1 05/23 Result [facility] Qnt (05/23/18 9:55 AM) Comment: [facility] Benzodiazepin Center es
alprazolam Positive 27 ng/mL HEMATOLOGY Eosinophils 0.3 0.0 - 0.5 05/23 [facility] HEMATOLOGY Basophils # 0.1 0.0 - 0.2 05/23 [facility] HEMATOLOGY Neutrophils 3.9 1.5 - 8.1 05/23 [facility] HEMATOLOGY Lymphocytes 1.3 1.0 - 5.5 05/23 [facility] HEMATOLOGY Monocytes # 0.5 0.0 - 0.8 05/23 [facility] HEMATOLOGY Basophils 0.9 0.0 - 1.0 05/23 [facility] HEMATOLOGY Monocytes 7.7 2.0 - 12.0 05/23 [facility] HEMATOLOGY Eosinophils 4.3 0.0 - 4.0 05/[address] [place] [address] HEMATOLOGY Lymphocytes 22.0 20.0 - 05/23 [place] 40.0 [facility] HEMATOLOGY Segs 65.1 45.0 - 05/23 [place] 75.0 [facility] HEMATOLOGY INR 1.06 0.85 - 05/23 [place] 1.17 [facility] HEMATOLOGY PT 13.8 12.0 - 05/23 [place] 14.7 [facility] HEMATOLOGY PTT 35.0 22.9 - 05/23 [place] 35.8 [facility] HEMATOLOGY RDW 18.1 11.5 - 05/23 [place] 14.5 [facility] HEMATOLOGY MPV 8.0 7.4 - 10.4 05/23 [facility] HEMATOLOGY Platelet 228 133 - 450 05/23 [facility] HEMATOLOGY MCHC 33.3 32.0 - 05/23 [place] 36.0 [facility] HEMATOLOGY RBC 4.54 4.70 - 05/23 [place] 6.10 [facility] HEMATOLOGY WBC 6.1 3.7 - 10.4 05/[address] HEMATOLOGY MCV 80.9 80.0 - 05/23 [place] 94.0 /2018 [facility] HEMATOLOGY Hct 36.7 42.0 - 08/15 [place] 54.0 /2017 [facility] HEMATOLOGY MCH 27.0 27.0 - 05/23 [place] 31.0 /2017 [facility] HEMATOLOGY Hgb 12.2 14.0 - 05/23 [facility] 18.0 [facility] IMMUNOLOGY Varicella >8.0 <=0.8 AI 05/23 [facility] IgG /2017 [facility] IMMUNOLOGY Varicella <0.91 0.00 - 05/23 Result [facility] IgM 0.90 Comment: [facility] Center Negative <0.91
Borderline 0.91 - 1.09
Positive >1.09
Per formed At: [facility]
[address], [place] [id number]<br/ >Gilmar Gómez MD Ph:[phone] IMMUNOLOGY Treponemal Non-Reactive Non 05/23 [facility] Ab *NA* /2017 [facility] (05/23/18 9:55 AM) [place] IMMUNOLOGY T-Spot.TB Negative Negative 05/23 [facility] (05/23/18 9:55 AM) [facility] IMMUNOLOGY Gamma % 18.2 11.1 - 05/23 [facility] 18.7 /2017 [facility] IMMUNOLOGY Alpha 2 % 7.8 7.0 - 11.9 05/23 [facility] IMMUNOLOGY Beta % 9.5 7.8 - 13.7 05/23 [facility] IMMUNOLOGY Albumin % 60.9 55.8 - 05/23 [place] 66.1 /2017 [facility] IMMUNOLOGY Alpha 1 % 3.6 2.8 - 4.9 05/23 [facility] IMMUNOLOGY Gamma Glob 1.47 0.71 - 05/23 [place] 1.57 [facility] IMMUNOLOGY Tot Prot 8.1 6.4 - 8.4 05/23 [facility] (SPE) [facility] IMMUNOLOGY Beta Glob 0.77 0.50 - 05/23 [place] 1.15 [facility] IMMUNOLOGY SPE Interp Capillary 05/23 [facility] electropho /2017 Medical resis does Center not demonstrat e any features consistent with the presence of a monoclonal gammopathy . Total protein level is within the reference range. Serum protein electropho resis shows normal distributi on of the main protein fractions. Serum protein electropho resis shows no pathologic changes. Correspond ing serum protein immunofixa tion electropho resis does not show evidence of a monoclonal gammopathy (see a separate report). I have personally reviewed the test results and concur with the resident's interpreta tion. CPT 40020-RY IMMUNOLOGY Albumin 4.93 3.57 - 08 [place] (SPE) 5.55 /2017 [facility] IMMUNOLOGY Alpha 1 Glob 0.29 0.18 - 08 [place] 0.41 /2017 [facility] IMMUNOLOGY Alpha 2 Glob 0.63 0.45 - 05/23 [place] 1.00 /2017 [facility] IMMUNOLOGY [place]/Lambda 2.18 0.26 - 08 [facility] Free Light 1.65 /2017 [facility] Chains Ratio [place] IMMUNOLOGY Lambda Free 89.85 5.70 - 05/23 [facility] Light Chains 26.30 [facility] IMMUNOLOGY [place] Free 196.11 3.30 - 05/23 [facility] Light Chains 19.40 [facility] IMMUNOLOGY HSV 1 IgG >8.0 <=0.8 AI 05/23 [facility] IMMUNOLOGY HSV 2 IgG <0.2 <=0.8 AI 05/23 [facility] IMMUNOLOGY CMV IgM 0.2 05/23 [facility] IMMUNOLOGY CMV IgG Reactive Non 05/23 [facility] *ABN* Reactive [facility] (05/23/18 9:55 AM) [place] IMMUNOLOGY EBV VCA IgG >8.0 <=0.8 AI 05/23 [facility] IMMUNOLOGY Hep Bs Ab 4.5 <=7.4 05/23 [facility] mIU/mL [facility] IMMUNOLOGY Hep C Ab Negative 05/23 [facility] *NA* [facility] (05/23/18 9:55 AM) [place] IMMUNOLOGY EBV VCA IgM <0.2 <=0.8 AI 05/23 [facility] IMMUNOLOGY Hep Bs Ag Negative Negative 05/23 [place] *NA* [facility] (05/23/18 9:55 AM) Center IMMUNOLOGY Hep B Core Negative Negative 05/23 [place] Ab *NA* [facility] (05/23/18 9:55 AM) [place] IMMUNOLOGY HIV Ag/Ab Negative Negative 05/23 [facility] 4th Gen *NA* [facility] (05/23/18 9:55 AM) Center IMMUNOLOGY MIKE Ser The serum 05/23 [facility] Interp immunofixa /2017 [facility] ti Center electropho resis demonstrat es polyclonal distributi on of immunoglob ulins. No monoclonal immunoglob ulins are detected. The electronic medical record has been reviewed for relevant history. I have personally reviewed the test results and concur with the resident's interpreta tion. CPT 74966-LK IMMUNOLOGY MIKE Ser Diffusely 05/23 [facility] Pattern staining Medical immunoreac Center tivity is present in the IgG, IgA, IgM, kappa, and lambda lanes in a normal polyclonal distributi on. No monoclonal immunoglob ulins are detected. LIPIDS VLDL 30 05/23 [facility] LIPIDS LDL 74 <=99 mg/dL 05/23 [facility] (Calculated) [facility] LIPIDS Chol 176 <=199 05/23 [facility] mg/dL [facility] LIPIDS HDL 72 >=61 mg/dL 05/23 [facility] LIPIDS Trig 152 <=149 05/23 [facility] mg/dL [facility] LIPIDS CHD Risk 2.44 4.00 - 05/23 [facility] 7.30 [facility] PARASITOLOG Strongyloide Negative Negative 05/23 Result [facility] Y - s Antibodies /2017 Comment: Medical SEROLOGY Performed At: Center [facility]
[address] [place] [id number]<br/ >Gilmar Gómez MD Ph:[phone] PARATHYROID PTH Intact 286.0 18.4 - 05/23 [facility] PROFILE 80.1 [facility] SPECIAL PSA 0.46 0.00 - 05/23 [facility] CHEMISTRY 4.00 [facility] SPECIAL Hgb A1C 4.9 <=5.6 % 05/23 [facility] CHEMISTRY /2017 [facility] SPECIAL Nicotine Lvl None 05/23 Result [facility] CHEMISTRY Detected Comment: Medical Nicotine Center levels greater than 2.0 are consistent with the
use of tobacco or tobacco cessation products. SPECIAL Cotinine Lvl None 05/23 Result [facility] CHEMISTRY Detected Comment: [facility] Cotinine Center levels greater than 20.0 are consistent with the
use of tobacco or tobacco cessation products.<br/ >Performed At: [facility]
[address] [place] [id number]<br/ >Gilmar Gómez MD Ph:[phone] CARDIAC Troponin-I 0.04 0.00 - 04/15 [facility] 0.40 /2018 [facility] CARDIAC Total CK 26 12 - 191 07/08 [facility] /2017 [facility] CARDIAC Troponin-I 0.02 0.00 - 07/08 [facility] 0.40 /2017 [facility] CARDIAC Total CK 31 12 - 191 07/08 [facility] /2017 [facility] CHEM PANEL Magnesium 1.9 1.8 - 2.4 07/ [facility] Lvl /2017 [facility] CHEM PANEL B/C Ratio 6 6 - 25 07/ MH [facility] CHEM PANEL Albumin Lvl 3.3 3.5 - 5.0 07/ MH [facility] CHEM PANEL A/G Ratio 0.9 0.7 - 1.6 / MH [facility] CHEM PANEL Total 7.1 6.4 - 8.4 / MH Protein [facility] CHEM PANEL Globulin 3.8 2.7 - 4.2 04/15 [facility] CHEM PANEL ALT 18 0 - 65 04/15 [facility] CHEM PANEL AST 14 0 - 37 04/15 [facility] CHEM PANEL Alk Phos 82 39 - 136 04/15 [facility] CHEM PANEL Bili Total 0.5 0.2 - 1.3 04/15 [facility] CHEM PANEL eGFR 10 04/15 Result Comment: The [facility] eGFR is calculated using the CKD-EPI formula. In most young, healthy individuals the eGFR will be >90 mL/min/1.73m2 . The eGFR declines with age. An eGFR of 60-89 may be normal in some populations, particularly the elderly, for whom the CKD-EPI formula has not been extensively validated. Use of the eGFR is not recommended in the following populations:< br/>
Joan viduals with unstable creatinine concentration s, including patients and those with serious co-morbid conditions.<b r/>
Patie nts with extremes in muscle mass or diet.

The data above are obtained from the National Kidney Disease Education Program (NKDEP) which additionally recommends that when the eGFR is used in patients with extremes of body mass index for purposes of drug dosing, the eGFR should be multiplied by the estimated BMI. CHEM PANEL Potassium 3.2 3.5 - 5.1 / [facility] Lvl /2017 [facility] CHEM PANEL Chloride Lvl 103 95 - 109 07/08 [facility] CHEM PANEL Glucose Lvl 95 70 - 99 07/08 [facility] CHEM PANEL BUN 34 7 - 22 07/ [facility] CHEM PANEL Creatinine 5.83 0.50 - 07/08 [facility] Lvl 1.40 /2017 [facility] CHEM PANEL Sodium Lvl 138 135 - 145 07/ [facility] CHEM PANEL CO2 23 24 - 32 07/ [facility] CHEM PANEL AGAP 15.2 10.0 - 07/08 [facility] 20.0 [facility] CHEM PANEL Calcium Lvl 8.5 8.5 - 10.5 07/08 [facility] CHEM PANEL Phosphorus 4.2 2.5 - 4.5 07/ [facility] HEMATOLOGY Lymphocytes 1.5 1.0 - 5.5 07/08 [facility] # /2017 [facility] HEMATOLOGY Monocytes # 0.5 0.0 - 0.8 07/ [facility] HEMATOLOGY Basophils 1.0 0.0 - 1.0 07/ [facility] HEMATOLOGY Segs-Bands # 3.5 1.5 - 8.1 07/ [facility] HEMATOLOGY Basophils # 0.1 0.0 - 0.2 07/ [facility] HEMATOLOGY Eosinophils 0.2 0.0 - 0.5 07/08 [facility] /2017 [facility] HEMATOLOGY Lymphocytes 26.7 20.0 - 07/08 [facility] 40.0 [facility] HEMATOLOGY Segs 61.0 45.0 - 0708 [facility] 75.0 [facility] HEMATOLOGY Monocytes 8.0 2.0 - 12.0 07 [facility] HEMATOLOGY Eosinophils 3.3 0.0 - 4.0 07/08 [facility] HEMATOLOGY WBC 5.7 3.7 - 10.4 07/ [facility] HEMATOLOGY RBC 4.48 4.70 - 07/08 [facility] 6.10 [facility] HEMATOLOGY RDW 17.7 11.5 - 07/08 [facility] 14.5 [facility] HEMATOLOGY Platelet 215 133 - 450 07/ [facility] HEMATOLOGY MPV 7.2 7.4 - 10.4 07 [facility] HEMATOLOGY Hgb 11.6 14.0 - 07/08 [facility] 18.0 [facility] HEMATOLOGY Hct 35.5 42.0 - 07/08 [facility] 54.0 [facility] HEMATOLOGY MCHC 32.6 32.0 - 07/08 [facility] 36.0 /2017 [facility] HEMATOLOGY MCV 79.2 80.0 - 07/08 [facility] 94.0 /2017 [facility] HEMATOLOGY MCH 25.8 27.0 - 07/08 [facility] 31.0 /2017 [facility] CARDIAC Troponin-I <0.02 0.00 - 07/08 [facility] 0.40 /2017 [facility] CARDIAC proBNP 36110 0 - 125 / [facility] /2017 [facility] CARDIAC Total CK 37 12 - 191 04/15 [facility] CARDIAC CK MB 1.0 0.5 - 3.6 07/ [facility] /2017 [facility] CARDIAC CK MB Index 2.7 0.0 - 2.5 04/15 [facility] CHEM PANEL eGFR 12 04/15 Result Comment: The [facility] eGFR is calculated using the CKD-EPI formula. In most young, healthy individuals the eGFR will be >90 mL/min/1.73m2 . The eGFR declines with age. An eGFR of 60-89 may be normal in some populations, particularly the elderly, for whom the CKD-EPI formula has not been extensively validated. Use of the eGFR is not recommended in the following populations:< br/>
Joan viduals with unstable creatinine concentration s, including patients and those with serious co-morbid conditions.<b r/>
Patie nts with extremes in muscle mass or diet.

The data above are obtained from the National Kidney Disease Education Program (NKDEP) which additionally recommends that when the eGFR is used in patients with extremes of body mass index for purposes of drug dosing, the eGFR should be multiplied by the estimated BMI. CHEM PANEL Alk Phos 88 39 - 136 04/15 [facility] CHEM PANEL AST 14 0 - 37 04/15 [facility] CHEM PANEL Total 7.4 6.4 - 8.4 04/15 Protein [facility] CHEM PANEL Bili Total 0.5 0.2 - 1.3 04/15 [facility] CHEM PANEL ALT 17 0 - 65 04/15 [facility] CHEM PANEL Albumin Lvl 3.2 3.5 - 5.0 04/15 [facility] CHEM PANEL Calcium Lvl 8.1 8.5 - 10.5 04/15 [facility] CHEM PANEL Sodium Lvl 137 135 - 145 07/08 /2017 [facility] CHEM PANEL CO2 26 24 - 32 07/08 /2017 [facility] CHEM PANEL Creatinine 4.94 0.50 - 07/08 [facility] Lvl 1.40 /2017 [facility] CHEM PANEL BUN 24 7 - 22 07/08 /2017 [facility] CHEM PANEL Glucose Lvl 156 70 - 99 07/08 [facility] CHEM PANEL B/C Ratio 5 6 - 25 07/08 /2017 [facility] CHEM PANEL AGAP 12.3 10.0 - 07/08 [facility] 20.0 /2017 [facility] CHEM PANEL A/G Ratio 0.8 0.7 - 1.6 07/08 /2017 [facility] CHEM PANEL Globulin 4.2 2.7 - 4.2 07/08 [facility] CHEM PANEL Chloride Lvl 102 95 - 109 07/08 [facility] CHEM PANEL Potassium 3.3 3.5 - 5.1 07/08 [facility] Lvl /2017 [facility] HEMATOLOGY WBC 5.0 3.7 - 10.4 07/08 /2017 [facility] HEMATOLOGY RDW 17.6 11.5 - 07/08 [facility] 14.5 /2017 [facility] HEMATOLOGY MCHC 33.5 32.0 - 07/08 MH 36.0 [facility] HEMATOLOGY MPV 7.3 7.4 - 10.4 07/08 [facility] /2017 [facility] HEMATOLOGY RBC 4.25 4.70 - 07/08 [facility] 6.10 /2017 [facility] HEMATOLOGY MCH 26.0 27.0 - 07/08 [facility] 31.0 [facility] HEMATOLOGY MCV 77.5 80.0 - 07/08 MH 94.0 [facility] HEMATOLOGY Hct 33.0 42.0 - 07/08 MH 54.0 [facility] HEMATOLOGY Hgb 11.1 14.0 - 07/08 MH 18.0 [facility] HEMATOLOGY Platelet 208 133 - 450 07/08 MH /2017 [facility] HEMATOLOGY Segs-Bands # 3.6 1.5 - 8.1 07/08 [facility] /2017 [facility] HEMATOLOGY Lymphocytes 0.9 1.0 - 5.5 07/08 [facility] # /2017 [facility] HEMATOLOGY Basophils # 0.1 0.0 - 0.2 07/08 MH /2017 [facility] HEMATOLOGY Eosinophils 0.1 0.0 - 0.5 07/08 [facility] # /2017 [facility] HEMATOLOGY Monocytes # 0.4 0.0 - 0.8 04/15 [facility] HEMATOLOGY Basophils 1.0 0.0 - 1.0 04/15 [facility] HEMATOLOGY Eosinophils 2.0 0.0 - 4.0 04/15 [facility] HEMATOLOGY Microcyte 1+ None Seen 04/15 *ABN* /2017 [facility] (04/14/18 7:12 PM) HEMATOLOGY Plt Morph Normal 04/15 (04/14/18 7:12 PM) [facility] HEMATOLOGY Lymphocytes 17.2 20.0 - 04/15 MH 40.0 [facility] HEMATOLOGY Segs 72.3 45.0 - 04/15 MH 75.0 [facility] HEMATOLOGY Monocytes 7.5 2.0 - 12.0 04/15 [facility] TOXICOLOGY Vanco Lvl 17.4 03/19 [facility] CHEM PANEL Magnesium 2.1 1.8 - 2.4 03/19 Lvl [facility] CHEM PANEL Phosphorus 5.6 2.5 - 4.5 03/19 [facility] ELECTROLYTE AGAP 17.3 10.0 - 03/19 MH S 20.0 [facility] ELECTROLYTE eGFR 5 03/19 Result S Comment: The [facility] eGFR is calculated using the CKD-EPI formula. In most young, healthy individuals the eGFR will be >90 mL/min/1.73m2 . The eGFR declines with age. An eGFR of 60-89 may be normal in some populations, particularly the elderly, for whom the CKD-EPI formula has not been extensively validated. Use of the eGFR is not recommended in the following populations:< br/>
Joan viduals with unstable creatinine concentration s, including patients and those with serious co-morbid conditions.<b r/>
Patie nts with extremes in muscle mass or diet.

The data above are obtained from the National Kidney Disease Education Program (NKDEP) which additionally recommends that when the eGFR is used in patients with extremes of body mass index for purposes of drug dosing, the eGFR should be multiplied by the estimated BMI. ELECTROLYTE Chloride Lvl 94 95 - 109 03/19 S [facility] ELECTROLYTE CO2 24 24 - 32 03/19 S [facility] ELECTROLYTE Calcium Lvl 8.3 8.5 - 10.5 03/19 [facility] S /2017 [facility] ELECTROLYTE Glucose Lvl 120 70 - 99 03/19 MH S [facility] ELECTROLYTE Potassium 4.3 3.5 - 5.1 03/19 MH S Lvl /2017 [facility] ELECTROLYTE Sodium Lvl 131 135 - 145 03/19 S /2017 [facility] ELECTROLYTE BUN 55 7 - 22 03/19 [facility] S /2017 [facility] ELECTROLYTE Creatinine 9.62 0.50 - 03/19 MH S Lvl 1.40 [facility] HEMATOLOGY Basophils 0.3 0.0 - 1.0 03/19 [facility] HEMATOLOGY Monocytes 10.9 2.0 - 12.0 03/19 [facility] HEMATOLOGY Segs 78.7 45.0 - 03/19 MH 75.0 [facility] HEMATOLOGY Lymphocytes 8.8 20.0 - 03/19 MH 40.0 [facility] HEMATOLOGY Eosinophils 0.1 0.0 - 0.5 03/19 [facility] # /2017 [facility] HEMATOLOGY Monocytes # 0.9 0.0 - 0.8 03/19 [facility] HEMATOLOGY Eosinophils 1.3 0.0 - 4.0 03/19 [facility] HEMATOLOGY Microcyte 1+ None Seen 03/19 [facility] *ABN* /2017 [facility] (03/19/18 3:01 AM) HEMATOLOGY Segs-Bands # 6.5 1.5 - 8.1 03/19 [facility] HEMATOLOGY Lymphocytes 0.7 1.0 - 5.5 03/19 [facility] # /2017 [facility] HEMATOLOGY MPV 7.9 7.4 - 10.4 03/19 [facility] HEMATOLOGY Platelet 240 133 - 450 03/19 [facility] HEMATOLOGY MCH 26.4 27.0 - 03/19 MH 31.0 [facility] HEMATOLOGY RDW 15.4 11.5 - 03/19 MH 14.5 [facility] HEMATOLOGY MCHC 34.2 32.0 - 03/19 MH 36.0 [facility] HEMATOLOGY RBC 2.99 4.70 - 06 MH 6.10 [facility] HEMATOLOGY WBC 8.2 3.7 - 10.4 03/19 [facility] HEMATOLOGY Hct 23.1 42.0 - 03/19 MH 54.0 [facility] HEMATOLOGY Hgb 7.9 14.0 - 06 [facility] 18.0 /2018 [facility] HEMATOLOGY MCV 77.1 80.0 - 06/ MH 94.0 /2018 [facility] CHEM PANEL Magnesium 2.3 1.8 - 2.4 03/18 [facility] Lvl /2017 [facility] CHEM PANEL eGFR 6 03/18 Result Comment: The [facility] eGFR is calculated using the CKD-EPI formula. In most young, healthy individuals the eGFR will be >90 mL/min/1.73m2 . The eGFR declines with age. An eGFR of 60-89 may be normal in some populations, particularly the elderly, for whom the CKD-EPI formula has not been extensively validated. Use of the eGFR is not recommended in the following populations:< br/>
Joan viduals with unstable creatinine concentration s, including patients and those with serious co-morbid conditions.<b r/>
Patie nts with extremes in muscle mass or diet.

The data above are obtained from the National Kidney Disease Education Program (NKDEP) which additionally recommends that when the eGFR is used in patients with extremes of body mass index for purposes of drug dosing, the eGFR should be multiplied by the estimated BMI. CHEM PANEL Bili Total 0.4 0.2 - 1.3 03/18 [facility] CHEM PANEL Potassium 4.0 3.5 - 5.1 03/18 [facility] Lvl /2017 [facility] CHEM PANEL Glucose Lvl 105 70 - 99 03/18 [facility] CHEM PANEL BUN 50 7 - 22 03/18 [facility] CHEM PANEL Sodium Lvl 133 135 - 145 03/18 [facility] CHEM PANEL Creatinine 8.40 0.50 - 06/10 [facility] Lvl 1.40 [facility] CHEM PANEL Chloride Lvl 97 95 - 109 03/18 MH [facility] CHEM PANEL Alk Phos 104 39 - 136 /10 MH [facility] CHEM PANEL Albumin Lvl 2.7 3.5 - 5.0 03/18 [facility] CHEM PANEL Total 6.9 6.4 - 8.4 /10 MH Protein [facility] CHEM PANEL Calcium Lvl 8.0 8.5 - 10.5 03/18 [facility] CHEM PANEL CO2 26 24 - 32 03/18 [facility] CHEM PANEL AST 9 0 - 37 03/18 [facility] CHEM PANEL ALT 12 0 - 65 03/18 [facility] CHEM PANEL B/C Ratio 6 6 - 25 03/18 [facility] CHEM PANEL AGAP 14.0 10.0 - 03/18 MH 20.0 [facility] CHEM PANEL Globulin 4.2 2.7 - 4.2 03/18 [facility] CHEM PANEL A/G Ratio 0.6 0.7 - 1.6 03/18 [facility] CHEM PANEL Phosphorus 5.7 2.5 - 4.5 03/18 [facility] HEMATOLOGY INR 1.23 0.85 - 03/18 MH 1.17 [facility] HEMATOLOGY PTT 42.0 22.9 - 03/18 MH 35.8 [facility] HEMATOLOGY PT 15.6 12.0 - 03/18 MH 14. [facility] HEMATOLOGY Microcyte 1+ None Seen 03/18 *ABN* /2017 [facility] (03/18/18 3:29 AM) HEMATOLOGY Monocytes # 1.0 0.0 - 0.8 03/18 [facility] HEMATOLOGY Eosinophils 0.1 0.0 - 0.5 03/18 MH # /2017 [facility] HEMATOLOGY Lymphocytes 0.9 1.0 - 5.5 03/18 MH # [facility] HEMATOLOGY Segs-Bands # 5.0 1.5 - 8.1 03/18 [facility] HEMATOLOGY Eosinophils 1.6 0.0 - 4.0 03/18 [facility] HEMATOLOGY Lymphocytes 13.3 20.0 - 03/18 MH 40.0 [facility] HEMATOLOGY Basophils 0.5 0.0 - 1.0 03/18 [facility] HEMATOLOGY Monocytes 13.9 2.0 - 12.0 03/18 [facility] HEMATOLOGY Segs 70.7 45.0 - 03/18 MH 75.0 [facility] HEMATOLOGY Platelet 217 133 - 450 03/18 [facility] HEMATOLOGY MPV 7.9 7.4 - 10.4 03/18 [facility] HEMATOLOGY MCHC 33.8 32.0 - 03/18 MH 36.0 [facility] HEMATOLOGY RDW 15.0 11.5 - 03/18 MH 14.5 [facility] HEMATOLOGY Hct 21.8 42.0 - 03/18 MH 54.0 [facility] HEMATOLOGY MCV 77.9 80.0 - 03/18 MH 94.0 [facility] HEMATOLOGY MCH 26.3 27.0 - 03/18 MH 31.0 [facility] HEMATOLOGY RBC 2.80 4.70 - 03/18 MH 6. [facility] HEMATOLOGY Hgb 7.4 14.0 - 03/18 MH 18.0 [facility] HEMATOLOGY WBC 7.1 3.7 - 10.4 03/18 [facility] TOXICOLOGY Vanco Lvl 18.3 03/17 [facility] CHEM PANEL Lactic Acid 0.3 0.5 - 2.2 03/17 Lv [facility] IMMUNOLOGY Hep Bs Ag Negative Negative 03/17 *NA* [facility] (03/17/18 8:00 AM) CHEM PANEL Lactic Acid 0.3 0.5 - 2.2 03/17 MH Lv [facility] CARDIAC CK MB Index 1.2 0.0 - 2.5 03/17 ENZYMES [facility] CARDIAC Total CK 122 12 - 191 03/17 ENZYMES [facility] CARDIAC proBNP 48347 0 - 125 03/17 ENZYMES [facility] CARDIAC CK MB 1.5 0.5 - 3.6 03/17 ENZYMES [facility] CARDIAC Troponin-I <0.02 0.00 - 03/17 ENZYMES 0.40 [facility] CHEM PANEL Ammonia 33.0 <=45.0 03/17 uMol/L [facility] CHEM PANEL eGFR 4 03/17 Result Comment: The [facility] eGFR is calculated using the CKD-EPI formula. In most young, healthy individuals the eGFR will be >90 mL/min/1.73m2 . The eGFR declines with age. An eGFR of 60-89 may be normal in some populations, particularly the elderly, for whom the CKD-EPI formula has not been extensively validated. Use of the eGFR is not recommended in the following populations:< br/>
Joan viduals with unstable creatinine concentration s, including patients and those with serious co-morbid conditions.<b r/>
Patie nts with extremes in muscle mass or diet.

The data above are obtained from the National Kidney Disease Education Program (NKDEP) which additionally recommends that when the eGFR is used in patients with extremes of body mass index for purposes of drug dosing, the eGFR should be multiplied by the estimated BMI. CHEM PANEL Alk Phos 89 39 - 136 06/ [facility] CHEM PANEL Chloride Lvl 93 95 - 109 03/17 [facility] CHEM PANEL Globulin 4.1 2.7 - 4.2 06/ [facility] CHEM PANEL A/G Ratio 0.7 0.7 - 1.6 06/ [facility] CHEM PANEL B/C Ratio 7 6 - 25 03/17 [facility] CHEM PANEL AGAP 20.4 10.0 - 06/ MH 20.0 /2017 [facility] CHEM PANEL Bili Total 0.4 0.2 - 1.3 03/17 [facility] CHEM PANEL AST 11 0 - 37 03/17 [facility] CHEM PANEL ALT 10 0 - 65 03/17 [facility] CHEM PANEL Albumin Lvl 2.7 3.5 - 5.0 03/17 [facility] CHEM PANEL CO2 21 24 - 32 03/17 [facility] CHEM PANEL Total 6.8 6.4 - 8.4 03/17 MH Protein [facility] CHEM PANEL Calcium Lvl 7.5 8.5 - 10.5 03/17 [facility] CHEM PANEL Sodium Lvl 130 135 - 145 03/17 [facility] CHEM PANEL Potassium 4.4 3.5 - 5.1 / MH Lvl [facility] CHEM PANEL Creatinine 12.50 0.50 - 06/ MH Lvl 1.40 [facility] CHEM PANEL BUN 85 7 - 22 03/17 [facility] CHEM PANEL Glucose Lvl 172 70 - 99 03/17 [facility] CHEM PANEL Magnesium 1.9 1.8 - 2.4 06/ MH Lvl [facility] CHEM PANEL Lipase Lvl 65 73 - 393 03/17 [facility] CHEM PANEL Phosphorus 7.5 2.5 - 4.5 03/17 [facility] HEMATOLOGY Monocytes # 0.8 0.0 - 0.8 03/17 [facility] HEMATOLOGY Eosinophils 0.5 0.0 - 4.0 06/ MH [facility] HEMATOLOGY Lymphocytes 0.7 1.0 - 5.5 06/09 MH # /2017 [facility] HEMATOLOGY Basophils 0.5 0.0 - 1.0 03/17 [facility] HEMATOLOGY Segs-Bands # 7.4 1.5 - 8.1 03/17 [facility] HEMATOLOGY Microcyte 1+ None Seen 03/17 MH *ABN* /2017 [facility] (03/17/18 3:09 AM) HEMATOLOGY Lymphocytes 7.7 20.0 - 03/17 MH 40.0 [facility] HEMATOLOGY Monocytes 9.3 2.0 - 12.0 03/17 [facility] HEMATOLOGY Segs 82.0 45.0 - 03/17 MH 75.0 [facility] HEMATOLOGY INR 1.26 0.85 - 03/17 MH 1.17 [facility] HEMATOLOGY PT 15.9 12.0 - 03/17 MH 14.7 [facility] HEMATOLOGY MCH 26.4 27.0 - 03/17 MH 31.0 [facility] HEMATOLOGY MCV 77.8 80.0 - 03/17 MH 94.0 [facility] HEMATOLOGY Hct 22.2 42.0 - 03/17 MH 54.0 [facility] HEMATOLOGY Hgb 7.5 14.0 - 03/17 MH 18.0 [facility] HEMATOLOGY WBC 9.0 3.7 - 10.4 03/17 [facility] HEMATOLOGY RBC 2.86 4.70 - 03/17 MH 6.10 [facility] HEMATOLOGY MPV 7.4 7.4 - 10.4 03/17 [facility] HEMATOLOGY Platelet 220 133 - 450 03/17 [facility] HEMATOLOGY RDW 15.1 11.5 - 03/17 MH 14.5 [facility] HEMATOLOGY MCHC 34.0 32.0 - 03/17 MH 36.0 [facility] CARDIAC CK MB Index 1.7 0.0 - 2.5 01/23 ENZYMES [facility] CARDIAC CK MB 2.9 0.5 - 3.6 01/23 ENZYMES [facility] CARDIAC Troponin-I <0.02 0.00 - 01/23 ENZYMES 0.40 [facility] CARDIAC Total CK 166 12 - 191 01/23 ENZYMES [facility] CARDIAC proBNP 4827 0 - 125 01/23 ENZYMES [facility] CHEM PANEL Magnesium 1.9 1.8 - 2.4 01/23 MH Lvl [facility] CHEM PANEL Phosphorus 9.1 2.5 - 4.5 01/23 [facility] CHEM PANEL eGFR 5 01/23 Result Comment: The [facility] eGFR is calculated using the CKD-EPI formula. In most young, healthy individuals the eGFR will be >90 mL/min/1.73m2 . The eGFR declines with age. An eGFR of 60-89 may be normal in some populations, particularly the elderly, for whom the CKD-EPI formula has not been extensively validated. Use of the eGFR is not recommended in the following populations:< br/>
Joan viduals with unstable creatinine concentration s, including patients and those with serious co-morbid conditions.<b r/>
Patie nts with extremes in muscle mass or diet.

The data above are obtained from the National Kidney Disease Education Program (NKDEP) which additionally recommends that when the eGFR is used in patients with extremes of body mass index for purposes of drug dosing, the eGFR should be multiplied by the estimated BMI. CHEM PANEL Alk Phos 115 39 - 136 01/23 [facility] CHEM PANEL AST 23 0 - 37 01/23 [facility] CHEM PANEL ALT 24 0 - 65 01/23 [facility] CHEM PANEL A/G Ratio 0.8 0.7 - 1.6 01/23 [facility] CHEM PANEL Globulin 4.0 2.7 - 4.2 01/23 [facility] CHEM PANEL Bili Total 0.4 0.2 - 1.3 01/23 [facility] CHEM PANEL Potassium 4.4 3.5 - 5.1 01/23 MH Lvl /2017 [facility] CHEM PANEL Calcium Lvl 6.7 8.5 - 10.5 01/23 Result Comment: [facility] Critical Result(s) called to Valorie Sanchez at 2017_ byJJ_. Read back OK. CHEM PANEL Sodium Lvl 130 135 - 145 01/23 [facility] CHEM PANEL Creatinine 11.00 0.50 - 01/23 MH Lvl 1.40 [facility] CHEM PANEL AGAP 17.4 10.0 - 01/23 MH 20.0 [facility] CHEM PANEL CO2 25 24 - 32 01/23 [facility] CHEM PANEL Chloride Lvl 92 95 - 109 01/23 [facility] CHEM PANEL Albumin Lvl 3.4 3.5 - 5.0 04 [facility] CHEM PANEL Total 7.4 6.4 - 8.4 01/23 [facility] CHEM PANEL B/C Ratio 8 6 - 25 01/23 [facility] CHEM PANEL BUN 84 7 - 22 01/23 [facility] CHEM PANEL Glucose Lvl 123 70 - 99 01/23 [facility] HEMATOLOGY Lymphocytes 21.5 20.0 - 01/23 MH 40.0 [facility] HEMATOLOGY Lymphocytes 1.6 1.0 - 5.5 04 MH # /2017 [facility] HEMATOLOGY Eosinophils 0.3 0.0 - 0.5 01/23 MH # /2017 [facility] HEMATOLOGY Segs 63.7 45.0 - 01/23 MH 75.0 [facility] HEMATOLOGY Segs-Bands # 4.8 1.5 - 8.1 01/23 [facility] HEMATOLOGY Eosinophils 3.5 0.0 - 4.0 01/23 [facility] HEMATOLOGY Monocytes 10.4 2.0 - 12.0 01/23 [facility] HEMATOLOGY Basophils 0.9 0.0 - 1.0 01/23 [facility] HEMATOLOGY Basophils # 0.1 0.0 - 0.2 01/23 [facility] HEMATOLOGY Monocytes # 0.8 0.0 - 0.8 01/23 [facility] HEMATOLOGY INR 1.06 0.85 - 01/23 MH 1. [facility] HEMATOLOGY PT 13.8 12.0 - 01/23 MH 14.7 [facility] HEMATOLOGY PTT 35.7 22.9 - 01/23 MH 35.8 [facility] HEMATOLOGY Platelet 238 133 - 450 01/23 [facility] HEMATOLOGY MPV 7.5 7.4 - 10.4 01/23 [facility] HEMATOLOGY Hct 25.4 42.0 - 01/23 MH 54.0 [facility] HEMATOLOGY MCV 80.3 80.0 - 01/23 MH 94.0 [facility] HEMATOLOGY MCH 28.2 27.0 - 01/23 MH 31.0 [facility] HEMATOLOGY Hgb 8.9 14.0 - 01/23 MH 18.0 [facility] HEMATOLOGY MCHC 35.1 32.0 - 01/23 MH 36.0 [facility] HEMATOLOGY RDW 13.9 11.5 - 01/23 MH 14.5 /2017 [facility] HEMATOLOGY WBC 7.6 3.7 - 10.4 01/23 [facility] HEMATOLOGY RBC 3.16 4.70 - 01/23 MH 6.10 /2017 [facility] URINE AND UA <=1.0 0.1 - 1.0 01/23 STOOL Urobilinogen mg/dL [facility] URINE AND UA Glucose 50 01/23 STOOL [facility] URINE AND UA Color STRAW 01/23 STOOL [facility] URINE AND UA Sq Epi Few /LPF Few /LPF 01/23 STOOL [facility] URINE AND UA WBC 8 0 - 5 01/23 STOOL [facility] URINE AND UA Mucus Few /LPF None Seen 01/23 STOOL /LPF [facility] URINE AND UA Bacteria Moderate None Seen 01/23 STOOL /HPF /HPF [facility] URINE AND UA Leuk Est Small Negative 01/23 STOOL *ABN* [facility] (01/22/18 7:37 PM) URINE AND UA Protein >=300 Negative 01/23 STOOL mg/dL mg/dL [facility] URINE AND UA Ketones Negative Negative 01/23 STOOL mg/dL mg/dL [facility] URINE AND UA pH 6.0 5.0 - 8.0 01/23 STOOL [facility] URINE AND UA Turbidity Clear Clear 01/23 STOOL (01/22/18 7:37 PM) [facility] URINE AND UA Spec Grav 1.005 <=1.030 01/23 STOOL [facility] URINE AND UA Nitrite Negative Negative 01/23 STOOL (01/22/18 7:37 PM) [facility] URINE AND UA Blood Small Negative 01/23 STOOL *ABN* [facility] (01/22/18 7:37 PM) URINE AND UA Bili Negative Negative 01/23 STOOL *NA* [facility] (01/22/18 7:37 PM) CHEM PANEL Magnesium 1.8 1.8 - 2.4 12/20 MH Lvl [facility] CHEM PANEL eGFR 4 12/20 Result Comment: The [facility] eGFR is calculated using the CKD-EPI formula. In most young, healthy individuals the eGFR will be >90 mL/min/1.73m2 . The eGFR declines with age. An eGFR of 60-89 may be normal in some populations, particularly the elderly, for whom the CKD-EPI formula has not been extensively validated. Use of the eGFR is not recommended in the following populations:< br/>
Joan viduals with unstable creatinine concentration s, including patients and those with serious co-morbid conditions.<b r/>
Patie nts with extremes in muscle mass or diet.

The data above are obtained from the National Kidney Disease Education Program (NKDEP) which additionally recommends that when the eGFR is used in patients with extremes of body mass index for purposes of drug dosing, the eGFR should be multiplied by the estimated BMI. CHEM PANEL Creatinine 11.60 0.50 - 12/20 MH Lvl 1.40 [facility] CHEM PANEL Calcium Lvl 6.9 8.5 - 10.5 12/20 Result Comment: [facility] Critical Result(s) called to Dora Gregory RN at 12/20/2017 06:37 byCH. Read back OK. CHEM PANEL CO2 27 24 - 32 12/20 /2017 [facility] CHEM PANEL Sodium Lvl 133 135 - 145 12/20 [facility] CHEM PANEL Chloride Lvl 94 95 - 109 12/20 [facility] CHEM PANEL Potassium 3.7 3.5 - 5.1 12/20 MH Lvl /2017 [facility] CHEM PANEL BUN 104 7 - 22 12/20 [facility] CHEM PANEL Glucose Lvl 85 70 - 99 12/20 [facility] CHEM PANEL AGAP 15.7 10.0 - 12/20 MH 20.0 [facility] HEMATOLOGY Eosinophils 0.2 0.0 - 0.5 12/20 MH # /2017 [facility] HEMATOLOGY Monocytes # 0.6 0.0 - 0.8 12/20 [facility] HEMATOLOGY Microcyte 1+ None Seen 12/20 MH *ABN* /2017 [facility] (12/20/17 5:09 AM) HEMATOLOGY Segs 71.0 45.0 - 12/20 MH 75.0 [facility] HEMATOLOGY Lymphocytes 1.0 1.0 - 5.5 12/20 MH # /2017 [facility] HEMATOLOGY Basophils 0.8 0.0 - 1.0 12/20 [facility] HEMATOLOGY Segs-Bands # 4.6 1.5 - 8.1 12/20 [facility] HEMATOLOGY Lymphocytes 15.7 20.0 - 12/20 MH 40.0 [facility] HEMATOLOGY Eosinophils 3.1 0.0 - 4.0 12/20 [facility] HEMATOLOGY Monocytes 9.4 2.0 - 12.0 12/20 [facility] HEMATOLOGY Platelet 193 133 - 450 12/20 [facility] HEMATOLOGY MCV 77.5 80.0 - 12/20 MH 94.0 [facility] HEMATOLOGY MCHC 35.5 32.0 - 12/20 MH 36.0 [facility] HEMATOLOGY MCH 27.5 27.0 - 12/20 MH 31.0 [facility] HEMATOLOGY RDW 14.1 11.5 - 12/20 MH 14. [facility] HEMATOLOGY MPV 7.7 7.4 - 10.4 12/20 [facility] HEMATOLOGY Hct 23.5 42.0 - 12/20 MH 54.0 [facility] HEMATOLOGY Hgb 8.4 14.0 - 12/20 MH 18.0 [facility] HEMATOLOGY RBC 3.03 4.70 - 12/20 MH 6.10 [facility] HEMATOLOGY WBC 6.5 3.7 - 10.4 12/20 [facility] PARATHYROID Ca Norm WB 0.86 1.05 - 12/20 Result PROFILE 11.02 Comment: [facility] Critical Result(s) called to A DEGUIA at 12/20/2017 05:58 by D^2. Read back OK. PARATHYROID Ca Ion WB 0.86 1.05 - 12/20 Result PROFILE 11.02 Comment: [facility] Critical Result(s) called to A DEGUIA at 12/20/2017 05:58 by D^2. Read back OK. URINE AND Occult Bld Positive Negative 12/19 STOOL Stl *ABN* /2017 [facility] (12/19/17 12:00 PM) CHEM PANEL Phosphorus 8.2 2.5 - 4.5 12/19 [facility] CHEM PANEL A/G Ratio 0.8 0.7 - 1.6 12/19 [facility] CHEM PANEL AST 9 0 - 37 12/19 [facility] CHEM PANEL ALT 10 0 - 65 12/19 [facility] CHEM PANEL Globulin 3.5 2.7 - 4.2 12/19 [facility] CHEM PANEL Albumin Lvl 2.7 3.5 - 5.0 12/19 [facility] CHEM PANEL eGFR 4 12/19 Result Comment: The [facility] eGFR is calculated using the CKD-EPI formula. In most young, healthy individuals the eGFR will be >90 mL/min/1.73m2 . The eGFR declines with age. An eGFR of 60-89 may be normal in some populations, particularly the elderly, for whom the CKD-EPI formula has not been extensively validated. Use of the eGFR is not recommended in the following populations:< br/>
Joan viduals with unstable creatinine concentration s, including patients and those with serious co-morbid conditions.<b r/>
Patie nts with extremes in muscle mass or diet.

The data above are obtained from the National Kidney Disease Education Program (NKDEP) which additionally recommends that when the eGFR is used in patients with extremes of body mass index for purposes of drug dosing, the eGFR should be multiplied by the estimated BMI. CHEM PANEL Alk Phos 100 39 - 136 12/19 [facility] CHEM PANEL Bili Total 0.3 0.2 - 1.3 12/19 [facility] CHEM PANEL Glucose Lvl 88 70 - 99 12/19 [facility] CHEM PANEL Potassium 3.6 3.5 - 5.1 12/19 MH Lvl /2017 [facility] CHEM PANEL Chloride Lvl 95 95 - 109 12/19 [facility] CHEM PANEL Sodium Lvl 135 135 - 145 12/19 [facility] CHEM PANEL BUN 103 7 - 22 12/19 [facility] CHEM PANEL Creatinine 11.70 0.50 - 12/19 MH Lvl 1.40 /2017 [facility] CHEM PANEL B/C Ratio 9 6 - 25 12/19 [facility] CHEM PANEL Total 6.2 6.4 - 8.4 12/19 MH /2017 [facility] CHEM PANEL Calcium Lvl 6.5 8.5 - 10.5 12/19 Result Comment: [facility] Critical Result(s) called to Anita Toure at 12/19/2017 07:51 by gp. Read back OK. CHEM PANEL AGAP 14.6 10.0 - 12/19 MH 20.0 /2018 [facility] CHEM PANEL CO2 29 24 - 32 12/19 [facility] PARATHYROID Ca Ion WB 0.88 1.05 - 12/19 Result MH PROFILE 11.02 Comment: [facility] Critical Result(s) called to Anita Reilly at 12/19/2017 08:38 by gp. Read back OK. PARATHYROID Ca Norm WB 0.85 1.05 - 12/19 MH PROFILE 11.02 [facility] CHEM PANEL eGFR 4 12/19 Result Comment: The [facility] eGFR is calculated using the CKD-EPI formula. In most young, healthy individuals the eGFR will be >90 mL/min/1.73m2 . The eGFR declines with age. An eGFR of 60-89 may be normal in some populations, particularly the elderly, for whom the CKD-EPI formula has not been extensively validated. Use of the eGFR is not recommended in the following populations:< br/>
Joan viduals with unstable creatinine concentration s, including patients and those with serious co-morbid conditions.<b r/>
Patie nts with extremes in muscle mass or diet.

The data above are obtained from the National Kidney Disease Education Program (NKDEP) which additionally recommends that when the eGFR is used in patients with extremes of body mass index for purposes of drug dosing, the eGFR should be multiplied by the estimated BMI. CHEM PANEL Glucose Lvl 92 70 - 99 12/19 [facility] CHEM PANEL Sodium Lvl 138 135 - 145 12/19 [facility] CHEM PANEL Potassium 3.6 3.5 - 5.1 12/19 MH Lvl [facility] CHEM PANEL BUN 97 7 - 22 12/19 [facility] CHEM PANEL Creatinine 11.80 0.50 - 12/19 MH Lvl 1.40 [facility] CHEM PANEL Calcium Lvl 6.8 8.5 - 10.5 12/19 Result Comment: [facility] Critical Result(s) called to Isabel Carreon at 0623_ by_JJ. Read back OK. CHEM PANEL CO2 27 24 - 32 12/19 [facility] CHEM PANEL AGAP 18.6 10.0 - 12/19 MH 20. [facility] CHEM PANEL Chloride Lvl 96 95 - 109 12/19 [facility] CHEM PANEL Magnesium 1.8 1.8 - 2.4 12/19 MH Lvl /2017 [facility] HEMATOLOGY RDW 14.3 11.5 - 12/19 MH 14.5 [facility] HEMATOLOGY MCHC 34.5 32.0 - 12/19 MH 36.0 [facility] HEMATOLOGY MCH 26.8 27.0 - 12/19 MH 31.0 [facility] HEMATOLOGY MPV 8.0 7.4 - 10.4 12/19 [facility] HEMATOLOGY Platelet 200 133 - 450 12/19 [facility] HEMATOLOGY MCV 77.7 80.0 - 12/19 MH 94.0 [facility] HEMATOLOGY Hct 24.7 42.0 - 12/19 MH 54.0 [facility] HEMATOLOGY Hgb 8.5 14.0 - 12/19 MH 18.0 [facility] HEMATOLOGY RBC 3.17 4.70 - 12/19 MH 6.10 [facility] HEMATOLOGY WBC 6.6 3.7 - 10.4 12/19 [facility] HEMATOLOGY Monocytes # 0.7 0.0 - 0.8 12/19 [facility] HEMATOLOGY Eosinophils 0.2 0.0 - 0.5 12/19 MH # /2017 [facility] HEMATOLOGY Microcyte 1+ None Seen 12/19 MH *ABN* /2017 [facility] (12/19/17 5:02 AM) HEMATOLOGY Lymphocytes 1.0 1.0 - 5.5 12/19 MH # [facility] HEMATOLOGY Basophils 0.6 0.0 - 1.0 12/19 [facility] HEMATOLOGY Segs-Bands # 4.7 1.5 - 8.1 12/19 [facility] HEMATOLOGY Monocytes 10.3 2.0 - 12.0 12/19 [facility] HEMATOLOGY Eosinophils 2.9 0.0 - 4.0 12/19 [facility] HEMATOLOGY Lymphocytes 15.3 20.0 - 12/19 MH 40.0 [facility] HEMATOLOGY Segs 70.9 45.0 - 12/19 MH 75.0 [facility] PARATHYROID Ca Ion WB 0.88 1.05 - 12/19 Result MH PROFILE 11.02 Comment: [facility] Critical Result(s) called to Henry CARREON at 12/19/2017 06:46 by D^2. Read back OK. PARATHYROID Ca Norm WB 0.88 1.05 - 12/19 Result MH PROFILE . Comment: [facility] Critical Result(s) called to Henry CARREON at 12/19/2017 06:46 by D^2. Read back OK. CHEM PANEL Magnesium 1.9 1.8 - 2.4 12/18 MH Lvl /2017 [facility] CHEM PANEL Phosphorus 8.8 2.5 - 4.5 12/18 [facility] HEMATOLOGY Microcyte 1+ None Seen 12/17 MH *ABN* /2017 [facility] (12/17/17 4:32 AM) HEMATOLOGY Eosinophils 0.2 0.0 - 0.5 12/17 MH # /2017 [facility] HEMATOLOGY Monocytes # 0.6 0.0 - 0.8 12/17 [facility] HEMATOLOGY Lymphocytes 1.0 1.0 - 5.5 12/17 MH # [facility] HEMATOLOGY Segs-Bands # 3.9 1.5 - 8.1 12/17 [facility] HEMATOLOGY Basophils 0.6 0.0 - 1.0 12/17 [facility] HEMATOLOGY Eosinophils 2.7 0.0 - 4.0 12/17 [facility] HEMATOLOGY Monocytes 10.4 2.0 - 12.0 12/17 [facility] HEMATOLOGY Lymphocytes 18.1 20.0 - 12/17 MH 40.0 [facility] HEMATOLOGY Segs 68.2 45.0 - 12/17 MH 75.0 [facility] HEMATOLOGY Platelet 213 133 - 450 12/17 [facility] HEMATOLOGY RDW 14.3 11.5 - 12/17 MH 14.5 [facility] HEMATOLOGY MPV 8.0 7.4 - 10.4 12/17 [facility] HEMATOLOGY MCH 27.4 27.0 - 12/17 MH 31.0 [facility] HEMATOLOGY MCV 78.6 80.0 - 12/17 MH 94.0 [facility] HEMATOLOGY Hct 22.8 42.0 - 12/17 MH 54.0 [facility] HEMATOLOGY MCHC 34.9 32.0 - 12/17 MH 36.0 [facility] HEMATOLOGY Hgb 7.9 14.0 - 12/17 MH 18.0 [facility] HEMATOLOGY RBC 2.90 4.70 - 12/17 MH 6.10 [facility] HEMATOLOGY WBC 5.7 3.7 - 10.4 12/17 [facility] HEMATOLOGY Sed Rate 80 0 - 15 12/17 /2017 [facility] IMMUNOLOGY Tot Prot 7.0 6.4 - 8.4 12/17 MH (SPE) /2017 [facility] IMMUNOLOGY SPE Interp Total 12/17 MH protein /2017 [facility] and serum albumin are within normal limits. Serum capillary protein electropho resis shows an elevated alpha-1 globulin fraction. No monoclonal proteins are identified . The electropho retic pattern is consistent with the acute phase of an inflammato ry process. Clinical correlatio n is required. Interpreta tion performed at [facility]. IMMUNOLOGY Gamma Glob 1.13 0.71 - 12/17 MH 1.57 [facility] IMMUNOLOGY Beta Glob 0.83 0.50 - 12/17 MH 1.15 [facility] IMMUNOLOGY Alpha 2 Glob 0.85 0.45 - 12/17 MH 1.00 [facility] IMMUNOLOGY Alpha 1 Glob 0.48 0.18 - 12/17 MH 0.41 [facility] IMMUNOLOGY Albumin 3.72 3.57 - 12/17 MH (SPE) 5.55 /2017 [facility] IMMUNOLOGY Beta % 11.8 7.8 - 13.7 12/17 [facility] IMMUNOLOGY Gamma % 16.2 11.1 - 12/17 MH 18.7 /2017 [facility] IMMUNOLOGY Alpha 2 % 12.1 7.0 - 11.9 12/17 [facility] IMMUNOLOGY Alpha 1 % 6.8 2.8 - 4.9 12/17 /2017 [facility] IMMUNOLOGY Albumin % 53.1 55.8 - 12/17 MH 66.1 /2018 [facility] IMMUNOLOGY C3 91 88 - 201 12/17 Complement /2017 [facility] IMMUNOLOGY MIKE Ser See 12/17 Pattern interpreta /2017 [facility] tion. IMMUNOLOGY MIKE Ser Serum 12/17 Interp immunofixa /2017 [facility] tion electropho resis reveals a polyclonal pattern of immunoglob ulins. No monoclonal proteins are identified . Interpreta tion performed at [facility]. IMMUNOLOGY C4 29 16 - 47 12/17 Complement /2017 [facility] IMMUNOLOGY P-ANCA Negative Negative 12/17 (12/17/17 4:32 AM) [facility] IMMUNOLOGY C-ANCA Negative Negative 12/17 (12/17/17 4:32 AM) [facility] IMMUNOLOGY Hep Bs Ag Negative Negative 12/17 MH *NA* /2017 [facility] (12/17/17 4:32 AM) IMMUNOLOGY Hep Bs Ab <3.1 <=7.4 12/17 mIU/mL [facility] IMMUNOLOGY Hep B Core Negative Negative 12/17 Ab *NA* /2017 [facility] (12/17/17 4:32 AM) IMMUNOLOGY DNA Ab (DS) Negative Negative 12/17 (12/17/17 4:32 AM) [facility] IMMUNOLOGY [place]/Lambda 3.42 0.26 - 12/17 Free Light 1.65 [facility] Chains Ratio IMMUNOLOGY [place] Free 203.40 3.30 - 12/17 Light Chains 19.40 [facility] IMMUNOLOGY Lambda Free 59.41 5.70 - 12/17 Light Chains 26.30 [facility] IMMUNOLOGY CHRISTINA Negative Negative 12/17 (12/17/17 4:32 AM) [facility] IMMUNOLOGY RF Qnt <10 0 - 20 12/17 [facility] ANEMIA % Satur Fe 12 12 - 57 12/15 STUDY [facility] ANEMIA UIBC 238 110 - 370 12/15 STUDY [facility] ANEMIA TIBC 272 228 - 428 12/15 STUDY [facility] ANEMIA Iron 34 45 - 160 12/15 STUDY [facility] ANEMIA Ferritin Lvl 266 22 - 275 12/15 [facility] ANEMIA Vitamin B12 635 254 - 1320 12/15 STUDY Lvl [facility] ANEMIA Folate Lvl 19.0 >=3.0 12/15 STUDY ng/mL [facility] CHEM PANEL Vitamin D, 12.3 30.0 - 12/15 25-OH, Total 100.0 [facility] PARATHYROID PTH Intact 396.7 11.1 - 12/15 PROFILE 79.5 [facility] HEMATOLOGY Retic Auto 1.5 0.5 - 1.5 12/15 [facility] CARDIAC Troponin-I <0.02 0.00 - 12/15 ENZYMES 0.40 [facility] CARDIAC Total CK 380 12 - 191 12/15 ENZYMES [facility] CARDIAC CK MB 5.4 0.5 - 3.6 12/15 ENZYMES [facility] CARDIAC CK MB Index 1.4 0.0 - 2.5 12/15 ENZYMES [facility] CHEM PANEL Phosphorus >13.5 2.5 - 4.5 12/15 mg/dL [facility] CHEM PANEL Bili Total 0.4 0.2 - 1.3 12/15 [facility] CHEM PANEL ALT 14 0 - 65 12/15 [facility] CHEM PANEL AST 17 0 - 37 12/15 [facility] CHEM PANEL Alk Phos 115 39 - 136 12/15 [facility] CHEM PANEL Albumin Lvl 3.4 3.5 - 5.0 12/15 [facility] CHEM PANEL Total 7.4 6.4 - 8.4 12/15 Protein [facility] CHEM PANEL B/C Ratio 9 6 - 25 12/15 [facility] CHEM PANEL A/G Ratio 0.8 0.7 - 1.6 12/15 [facility] CHEM PANEL Globulin 4.0 2.7 - 4.2 12/15 [facility] CARDIAC Troponin-I <0.02 0.00 - 12/15 ENZYMES 0.40 [facility] CARDIAC Total CK 350 12 - 191 12/15 ENZYMES [facility] CARDIAC CK MB 4.8 0.5 - 3.6 12/15 ENZYMES [facility] CARDIAC CK MB Index 1.4 0.0 - 2.5 12/15 ENZYMES [facility] URINE CHEM U Potassium 20.0 12/15 [facility] URINE CHEM U Sodium 31 12/15 [facility] URINE CHEM U Chloride 22 12/15 [facility] URINE CHEM U Protein 246.9 12/15 [facility] URINE CHEM U Prot/Creat 4.35 12/15 [facility] URINE CHEM U Creatinine 56.70 12/15 [facility] URINE CHEM U Osmolality 223 300 - 800 12/15 [facility] URINE CHEM U Eos None Seen None Seen 12/15 (12/15/17 8:38 AM) [facility] URINE AND Micro? Performed 12/15 STOOL *NA* /2017 [facility] (12/15/17 8:33 AM) URINE AND UA <=1.0 0.1 - 1.0 12/15 STOOL Urobilinogen mg/dL [facility] URINE AND UA Glucose 50 12/15 STOOL [facility] URINE AND UA Color STRAW 12/15 STOOL [facility] URINE AND UA Nitrite Negative Negative 12/15 STOOL (12/15/17 8:33 AM) [facility] URINE AND UA Blood Small Negative 12/15 STOOL *ABN* /2017 [facility] (12/15/17 8:33 AM) URINE AND UA Leuk Est Negative Negative 12/15 STO[facility] (12/15/17 8:33 AM) [facility] URINE AND UA WBC 3 0 - 5 12/15 STOOL [facility] URINE AND UA Sq Epi Occasional Few /LPF 12/15 MH STOOL /LPF [facility] URINE AND UA Mucus Few /LPF None Seen 12/15 STOOL /LPF [facility] URINE AND UA RBC 1 0 - 2 12/15 STOOL [facility] URINE AND UA Turbidity Slight Clear 12/15 STOOL *ABN* /2017 [facility] (12/15/17 8:33 AM) URINE AND UA Spec Grav 1.008 <=1.030 12/15 STOOL [facility] URINE AND UA Ketones Negative Negative 12/15 STOOL mg/dL mg/dL [facility] URINE AND UA pH 5.0 5.0 - 8.0 12/15 STOOL [facility] URINE AND UA Bili Negative Negative 12/15 STOOL *NA* /2017 [facility] (12/15/17 8:33 AM) URINE AND UA Protein 100 mg/dL Negative 12/15 STOOL mg/dL /2017 [facility] CARDIAC CK MB Index 1.3 0.0 - 2.5 12/15 ENZYMES [facility] CARDIAC proBNP 4088 0 - 125 12/15 ENZYMES [facility] CARDIAC Total CK 357 12 - 191 12/15 ENZYMES [facility] CARDIAC CK MB 4.8 0.5 - 3.6 12/15 ENZYMES [facility] CARDIAC Troponin-I <0.02 0.00 - 12/15 ENZYMES 0.40 [facility] CHEM PANEL A/G Ratio 0.8 0.7 - 1.6 12/15 [facility] CHEM PANEL Total 7.0 6.4 - 8.4 12/15 Protein [facility] CHEM PANEL Globulin 3.9 2.7 - 4.2 12/15 [facility] CHEM PANEL Albumin Lvl 3.1 3.5 - 5.0 12/15 [facility] CHEM PANEL Bili Total 0.4 0.2 - 1.3 12/15 [facility] CHEM PANEL Alk Phos 108 39 - 136 12/15 [facility] CHEM PANEL ALT 15 0 - 65 12/15 [facility] CHEM PANEL AST 13 0 - 37 12/15 [facility] CHEM PANEL B/C Ratio 9 6 - 25 12/15 [facility] HEMATOLOGY D-Dimer 1.17 12/15 [facility] Pathology Reports No Data Provided for This Section Diagnostic Reports Report Value Date Source Abdomen AP DX Patient Name: ROBYN AGUILA 07/24/2018 [facility] : 1960; Age: 57 years y/o Male MR: [id number] * ABDOMEN, 1 view 07/24/2018 HISTORY: Nonfunctioning [...] 3. The regional skeleton is unremarkable. SL: [id number] Abdomen AP DX Patient Name: ROBYN AGUILA 07/23/2018 [facility] : 1960; Age: 57 years y/o Male MR: [id number] * ABDOMEN, 1 view HISTORY: Nonfunctioning peritoneal dialysis catheter. COMPARISON: Yesterday. TECHNIQUE: A supine radiograph of the abdomen was obtained. IMPRESSION: 1. The peritoneal dialysis catheter enters the periumbilical region and extends into the lateral aspect of the mid right upper quadrant. It is indicated by the patient's consulting concrete boom operator , Nick Appiah MD;. The catheter was placed approximately 4 weeks ago and initially functioning well but is now not functioning. The patient is scheduled to have a contrast injectio n through the catheter and attempted manipulation with a guidewire later today. 2. The bowel gas pattern is unremarkable. 3. The regional skeleton is unremarkable. SL: [id number] Peritoneogram VR Patient Name: ROBYN AGUILA 07/23/2018 [facility] : 1960; Age: 57 years y/o Male MR: [id number] * Peritoneal Dialysis Catheter Injection and Manipulation. [...] to improve the catheter position and function, initially , an Amplatz extra-stiff guidewire was advanced through [...] in the right lateral decubitus position. SL: [id number] Abdomen AP DX Patient Name: ROBYN AGUILA 07/22/2018 [facility] : 1960; Age: 57 years y/o Male MR: [id number] Study: Abdomen AP DX 07/22/2018 10:52 AM [...] likely represents atelectasis. SL: WR2-M CVC insert tunnel w/-w/o Patient Name: ROBYN AGUILA 07/22/2018 [facility] port/pump age 5+ yrs VR : 1960; Age: 57 years Male MR: [id number] PROCEDURE: 1. Ultrasound and fluoroscopic-guided placement of a tunneled central catheter via the right external jugular vein 2. Moderate sedation CLINICAL INFORMATION: : Other- See Reason for Consult - tunneled HD catheter elevated creatinine, need for urgent dialysis CONSENT: The procedure, risks, benefits and alternatives were discussed with the patient and written informed consent was obtained. A 'time out' was performed per protocol prior to the procedure. TECHNIQUE: strap machine operator: Dr. Yuan Fluoroscopy time: 2.7 min, 29.5 mGy Estimated blood loss: Minimal Moderate sedation: I supervised moderate sedation during this procedure. The patient was continuously monitored by a nurse using automated blood pressure , electrocardiogram, and pulse oximetry. The [facility] sedation record is permanently stored in the hospital information system. The personal supervised moderate sedation time was 19 minutes. Medications administered: Versed 2 mg IV and Fentanyl 100 mcg IV. The patient was placed in a supine position on the fluoroscopy table. Preprocedure ultrasound demonstrated a patent right internal jugular vein. The patient's right neck was prepped and draped using maximum sterile barrier technique. The overlying skin was anesthetized with 1% lidocaine. Under sterile ultrasound guidance, access was obtained in the right internal jugular vein using micropunct ure set. Wire was not extending centrally, likely [...] catheter. Catheter is ready for use. SL: [id number] Chest 1 v for Placement Additional image was provided for interpretation post catheter placement. 07/22/2018 [facility] Single view of the chest demonstrates a left IJ approach catheter terminating over the aortic knob which may represent a proximal left brachycephalic vein position given the previous guidewire position. Hazy right upper lung field opacities are redemonstrated and may represent subsegmental atelectasis, infiltrate or alveolar edema. Prominent pulmonary vascular congestion with suggestion of minimal interstitial pulmonary edema. Report addition and catheter position was discussed with Dr. Hess at 4:55 AM on 07/22/2018. EXAM: Chest x-ray one [...] were discussed with Dr. Haque. SL: BISI Chest 1view DX Patient Name: ROBYN AGUILA 07/21/2018 [facility] : 1960; Age: 57 years y/o Male MR: [id number] * CHEST, portable, 1 view HISTORY: Dyspnea. [...] 3. The regional skeleton is unremarkable. SL: LACHO Chest 1view DX EXAM: Chest 1view DX 04/14/2018 [facility] DATE: 04/14/2018 6:55 PM CDT INDICATION: - chest pain COMPARISON: 03/17/2018. IMPRESSION: Stable cardiac silhouette and mediastinum. Atherosclerotic thoracic aorta. Right central line is unchanged with its tip near the atrial caval junction. Mild nonspecific lingula or left lower lobe opacity is present may represent infiltrate. Please clinically for pneumonia. No significant pleural effusion or pneumothorax. SL: JNGUYEEDELMIRA Brain wo contrast MRI Patient Name: ROBYN AGUILA 03/19/2018 [facility] : 1960; Age: 57 years y/o Male MR: [id number] Study: Brain wo contrast MRI 03/19/2018 10:15 [...] or mucous cyst left maxillary sinus. SL: JESSIE- Chest Pulmonary Embolism Clinical Indication: - Chest pain, dizziness, palpitations. 03/17/2018 [facility] CTA Comparison: None. TECHNIQUE: Helical CT angiography of the chest was performed from the lung bases through the thoracic inlet following the administration of intravenous contrast. Axial, coronal, and sagittal multiplanar reconstructions provided. 3D post-processed reconstructions were generated on the scanner workstation and are also provided. . IV contrast: 100 cc Omnipaque. Dose: ZLI=176 mGy-cm FINDINGS: PULMONARY ARTERIES: No pulmonary emboli [...] Partially hepatosplenomegaly in the upper abdomen SL: PPARMET-M Brain wo contrast CT Patient Name: ROBYN AGUILA 03/17/2018 [facility] : 1960; Age: 57 years Male MR: [id number] Study: Brain wo contrast CT 03/17/2018 6:51 [...] midline shift or edema. There are no intra-ax ial or extra-axial fluid collections. There is no intraventricular or intraparenchymal hemorrhage. There is no noncontrast CT evidence of a subacute stroke. Chronic left basal ganglia lacunar infarction . The pineal, sellar, brainstem, cerebellum and skull base [...] without mass, hemorrhage or subacute stroke. SL: [id number] Chest 1view DX Chest, single view dated 03/17/2018. 03/17/2018 [facility] HISTORY: Shortness of breath. Comparison is made to a prior study [...] of acute congestive heart failure. SL: 131 Chest 2 views DX EXAM: Chest 2 views DX 01/22/2018 [facility] DATE: 01/22/2018 7:31 PM CDT INDICATION: - dyspnea COMPARISON: 12/15/2017. IMPRESSION: Stable moderately enlarged cardiac silhouette. No definite failure. No gross focal consolidation, significant pleural effusion or pneumothorax detected. New right IJ line is present with its tip near the atrial caval junction. SL: JNGUYEN-PC Retroperitoneal Complete Clinical Indication: - Renal failure; 12/15/2017 [facility] US Comparison: None TECHNIQUE: Multiple longitudinal and transverse real time sonographic [...] Right kidney upper pole simple cyst. SL: [id number] Chest 2 views DX Clinical Indication: - Subjective dyspnea. 12/15/2017 [facility] Comparison: None. Technique: Frontal and lateral views of the chest. Findings: Mild pulmonary vascular congestion. Mild more focal interstitial prominence at the bases likely due to atelectasis. No pleural effusions. The cardiac silhouette is enlarged. IMPRESSION: Cardiomegaly and pulmonary vascular congestion. SL: OCTAVIO Consultation Notes No Data Provided for This Section Discharge Summaries No Data Provided for This Section History and Physicals No Data Provided for This Section Vital Signs Vital Sign Value Date Comments Source Respitory Rate 18 07/24/2018 [facility] Systolic (mm Hg) 168 07/24/2018 [facility] Diastolic (mm Hg) 85 07/24/2018 [facility] Heart Rate 82 07/24/2018 [facility] Temperature Oral (F) 98.2 F 07/24/2018 [facility] Temperature Oral (F) 98.3 F 07/24/2018 [facility] Heart Rate 82 07/24/2018 [facility] Respitory Rate 18 07/24/2018 [facility] Systolic (mm Hg) 175 07/24/2018 [facility] Diastolic (mm Hg) 87 07/24/2018 [facility] Systolic (mm Hg) 179 07/24/2018 [facility] Diastolic (mm Hg) 97 07/24/2018 [facility] Temperature Oral (F) 98.2 F 07/24/2018 [facility] Respitory Rate 18 07/24/2018 [facility] Heart Rate 81 07/24/2018 [facility] Weight 102.273 07/22/2018 [facility] BMI Calculated 35.31 07/22/2018 [facility] Height 170.18 cm 07/22/2018 [facility] BMI Calculated 33.39 07/22/2018 [facility] Height 170.18 cm 07/22/2018 [facility] Weight 96.7 07/22/2018 [facility] Respitory Rate 14 07/21/2018 [facility] Temperature Oral (F) 98.6 F 07/21/2018 [facility] Systolic (mm Hg) 158 07/21/2018 [facility] Diastolic (mm Hg) 82 07/21/2018 [facility] Respitory Rate 14 07/20/2018 [facility] Systolic (mm Hg) 131 07/20/2018 [facility] Diastolic (mm Hg) 78 07/20/2018 [facility] Systolic (mm Hg) 153 07/20/2018 [facility] Diastolic (mm Hg) 75 07/20/2018 [facility] Respitory Rate 18 07/20/2018 [facility] Heart Rate 67 07/20/2018 [facility] Temperature Oral (F) 97.7 F 07/20/2018 [facility] Height 170.18 cm 07/20/2018 [facility] BMI Calculated 32.33 07/20/2018 [facility] Weight 93.636 07/20/2018 [facility] BMI Calculated 31.11 05/23/2018 [facility] Weight 89.9 05/23/2018 [facility] Respitory Rate 16 05/23/2018 [facility] Heart Rate 76 05/23/2018 [facility] Height 170 cm 05/23/2018 [facility] Systolic (mm Hg) 127 05/23/2018 [facility] Diastolic (mm Hg) 76 05/23/2018 [facility] Systolic (mm Hg) 161 04/15/2018 [facility] Diastolic (mm Hg) 88 04/15/2018 [facility] Respitory Rate 16 04/15/2018 [facility] Heart Rate 64 04/15/2018 [facility] Systolic (mm Hg) 165 04/15/2018 [facility] Diastolic (mm Hg) 88 04/15/2018 [facility] Temperature Oral (F) 98.2 F 04/15/2018 [facility] Heart Rate 67 04/15/2018 [facility] Temperature Oral (F) 98.0 F 04/15/2018 [facility] Systolic (mm Hg) 159 04/15/2018 [facility] Diastolic (mm Hg) 86 04/15/2018 [facility] Respitory Rate 18 04/15/2018 [facility] Temperature Oral (F) 98.2 F 04/15/2018 [facility] Heart Rate 69 04/15/2018 [facility] Respitory Rate 18 04/15/2018 [facility] Weight 87.784 04/15/2018 [facility] Weight 74.091 04/14/2018 [facility] Height 172.72 cm 04/14/2018 [facility] BMI Calculated 24.84 04/14/2018 [facility] Systolic (mm Hg) 137 03/20/2018 [facility] Diastolic (mm Hg) 72 03/20/2018 [facility] Respitory Rate 16 03/20/2018 [facility] Heart Rate 82 03/20/2018 [facility] Temperature Oral (F) 98.4 F 03/20/2018 [facility] Systolic (mm Hg) 144 03/20/2018 [facility] Diastolic (mm Hg) 76 03/20/2018 [facility] Respitory Rate 16 03/20/2018 [facility] Heart Rate 86 03/20/2018 [facility] Temperature Oral (F) 98.3 F 03/20/2018 [facility] Respitory Rate 16 03/20/2018 [facility] Temperature Oral (F) 98.3 F 03/20/2018 [facility] Heart Rate 87 03/20/2018 [facility] Systolic (mm Hg) 146 03/20/2018 [facility] Diastolic (mm Hg) 80 03/20/2018 [facility] BMI Calculated 35.75 03/17/2018 [facility] Weight 100.455 03/17/2018 [facility] Height 167.64 cm 03/17/2018 [facility] Weight 98.182 03/17/2018 [facility] Temperature Oral (F) 98.2 F 01/23/2018 [facility] Respitory Rate 18 01/23/2018 [facility] Systolic (mm Hg) 133 01/23/2018 [facility] Diastolic (mm Hg) 90 01/23/2018 [facility] Respitory Rate 18 01/23/2018 [facility] Heart Rate 67 01/23/2018 [facility] Systolic (mm Hg) 157 01/23/2018 [facility] Diastolic (mm Hg) 83 01/23/2018 [facility] Temperature Oral (F) 98.2 F 01/23/2018 [facility] Respitory Rate 17 01/23/2018 [facility] Systolic (mm Hg) 148 01/23/2018 [facility] Diastolic (mm Hg) 76 01/23/2018 [facility] Heart Rate 75 01/23/2018 [facility] BMI Calculated 36.17 01/23/2018 [facility] Height 165.1 cm 01/23/2018 [facility] Weight 98.6 01/23/2018 [facility] Systolic (mm Hg) 151 12/20/2017 [facility] Diastolic (mm Hg) 80 12/20/2017 [facility] Temperature Oral (F) 98.0 F 12/20/2017 [facility] Respitory Rate 18 12/20/2017 [facility] Heart Rate 77 12/20/2017 [facility] Systolic (mm Hg) 152 12/20/2017 [facility] Diastolic (mm Hg) 84 12/20/2017 [facility] Temperature Oral (F) 98 F 12/20/2017 [facility] Heart Rate 69 12/20/2017 [facility] Respitory Rate 18 12/20/2017 [facility] Temperature Oral (F) 97.6 F 12/20/2017 [facility] Heart Rate 70 12/20/2017 [facility] Systolic (mm Hg) 150 12/20/2017 [facility] Diastolic (mm Hg) 71 12/20/2017 [facility] Respitory Rate 18 12/20/2017 [facility] BMI Calculated 37.67 12/15/2017 [facility] Weight 109.091 12/15/2017 [facility] Height 170.18 cm 12/15/2017 [facility] Height 170.18 cm 12/15/2017 [facility] Weight 90.909 12/15/2017 [facility] Encounters Location Location Encounter Encounter Reason Attending ADM DC Status Source Details Type Number For Provider Date Date Visit [facility] [id number] Redd Bennettng 12/15 12/20 Marlo 0 [facility] [id number] Osvaldo 01/22 01/23 Marlo 1 Tawny Jr [facility] Inpatient [id number] [place] 03/17 03/20 Marlo 2 [place] /2017 [facility] Observation [id number] David 04/14 04/15 Marlo 3 Ajibade [facility] Transplant OP [id number] Joanne 05/23 06/22 [facility] Transplant 0 De Golovine [facility] [id number] Cecy 07/20 07/21 Marlo 4 Vishnyakova /2017 [facility] Inpatient [id number] Roger 07/22 07/24 Marlo 5 Dhamotharan [facility] Procedures Procedure Code Date Perfomer Comments Source Knee maneuver [id number] [facility] Shoulder [id number] [facility] manipulation Dialysis access [id number] [facility] Dialysis access [id number] [facility] Knee maneuver [id number] [facility] Shoulder [id number] [facility] Assessment and Plan Assessment and Plan Date Source Extracted from:Title: Nephrology progress note 07/24/2018 [facility] Author: Nick Desir MD Date: 07/24/18 Impression and Plan 57-year-old male with history [...] can be followed HD on MWF at [facility]. Function of PD catheter will be tested as outpatient, at [facility]. Follow up with Surgery if PD catheter still not working. Drug dose adjustment to GFR. Any question, please call [phone]. Extracted from:Title: Discharge Summary * Author: Roger Cha MD Date: 07/24/18 Discharge Information dislodged PD catheter ESRD on HD Hypertension Diabetes Discharge Plan Discharge Summary Plan Discharge Status: improved. Discharge instructions given: to patient. Discharge disposition: discharge to home. Prescriptions: e prescribed. Orders time spent >35 minutes. Extracted from:Title: UO History and Physical Author: Jacob Santiago MD Date: 07/22/18 Chief Complaint 07/21/2018 20:54 Pt c/o of perotineal dialysis cathether being clogged. Pt was dialysed 2 days ago and c/o abdominal pain. Pt voids. History of Present Illness Pt is a 57-year-old male with past medical history of hypertension, ESRD recently started home PD presented with complaints of shortness of breath and weakness. Of note patient's peritoneal dialys is catheter stopped working a couple of days ago when patient presented to the ER to have access evaluated. Patient was discharged home and asked to present on Monday for placement of temporary Harvey access for dialysis. However because of patient's symptomaticity, [...] renal disease) on dialysis / SNOMED CT 435219125 / Confirmed Pericardial effusion / SNOMED CT 9746505815 / Confirmed Simple obesity / SNOMED CT 5054556804 / Confirmed Resolved: Anxiety / SNOMED CT 50776386 Resolved: Diabetes / SNOMED CT 278406841 Resolved: Hypertension / SNOMED CT 4608362216 Resolved: Sleep apnea / SNOMED CT 090153356 Histories Past Medical History: Active ESRD (end stage renal disease) on dialysis (229714259) Pericardial effusion (9953101384) Resolved Hypertension (5697591752): Resolved. Diabetes (108427294): Resolved. Sleep apnea (870895728): Resolved. Anxiety (74682136): Resolved. Family History: Kidney disease Father Thyroid Dz/Problems Grandparent Procedure history: Shoulder manipulation (096108963). Knee maneuver (708993106). Dialysis access site care (3817396354). Physical Examination VS/Measurements Vital Signs (last 24 hrs) Last Charted Temp Oral 98.5 DegF (JUL 22:) Heart Rate Peripheral 71 bpm (JUL 22:) Resp Rate 17 BRMIN (JUL 22) SBP H 149mmHg (JUL 22) DBP 85 mmHg (JUL 22) SpO2 96 % (JUL 22) Weight 96.7 kg (JUL 21:54) Height 170.18 cm (JUL 21:) BMI 33.39 [...] midnights Addendum by Roger Cha MD on 07/22/2018 14:08 pt examined bedisde for catheter replacement today plan to monitor overnight Extracted from:Title: Nephrology consultation Author: Nick Desir MD Date: 07/21/18 Impression and Plan 57-year-old male with history [...] for the consultation, any question, please call [phone]. Extracted from:Title: [facility] Hospitalist Admission H&P 04/15/2018 [facility] Author: Debi Moreira MD Date: 04/15/18 [facility] Providers Hospitalist Admission History and Physical Code Status: Full Code [Ordered] Chief Complaint: high blood pressure, chest pain History of Present Illness: This is a 57 year old M with a hx of ESRD on TTS HD, pericardial effusion s/p pericardiocentesis in January in [place], and HTN who presented with high blood [...] symptoms. Denies any association with activity or positio n. No shortness of breath. No abdominal pain, nausea, vomiting, diarrhea. No LE edema. CXR with no signs of volume overload. He is a patient of Dr. Harvey. Of note, he was visiting [place] for business in January, at the time, he was admitted where he required pericardiocentesis. He was taking Coreg, Lasix, Amlodipine, and Hydralazine at the time. His doctors in [place] took him off Amlodipine and Hydralazine. Review [...] (04/14/18 19:12:00 CDT) MPV: 7.3 fL Low (04/14/18:12:00 CDT) Platelet: 208 K/CMM (04/14/18 19:12:00 CDT) [...] Disposition: 1 [place] Debi Moreira MD Hospitalist [facility] Providers Extracted from:Title: UIP Progress Note * 03/20/2018 [facility] Author: Leeann Sumner MD Date: 03/20/18 Impression [...] summary from yesterday; MRI Brain normal Extracted from:Title: Discharge Summary * Author: Leeann Sumner MD Date: 03/19/18 Discharge Plan Discharge Summary Plan Discharge Status: improved. Discharge instructions given: to patient. Discharge disposition: discharge to home self care. Prescriptions: continue same medications, written and given to patient. Diagnosis HAP (hospital-acquired pneumonia) (ZMZ02-ZG J18.9, Working, Medical). Fluid overload (GIN18-BZ E87.70, Working, Medical). HTN (hypertension) (CUN88-ZW I10, Working, Medical). ESRD on dialysis (WIH32-HL N18.6, Working, Medical). Acute dyspnea (PPQ49-CK R06.00, Working, Medical). Course Improving. Education and Follow-up Counseled: patient. Extracted from:Title: General Admission H&P * Author: Nick Desir MD Date: 03/17/18 Impression and Plan 57-year-old male with [...] Monday. Patient being followed by me in [facility]. 3. Hypertension, blood pressure low normal. 4. Diabetes mellitus type 2. Accu-Chek insulin sliding scale. 5. Chronic anemia. Resume Epogen. 6. Secondary hyperparathyroidism. 7. DVT prophylaxis. Heparin subcutaneous. Extracted from:Title: Nephrololgy Progress Note * 12/20/2017 [facility] Author: Nick Desir MD Date: 12/20/17 Impression and Plan 57 yo male with [...] Calcitriol 0.25 mcg p.o. daily Continue Ergocalciferol 55374 Units q week. Continue Renagel 2400 mg [...] with Dr Moses. Any question, please call [phone]. Extracted from:Title: History and Physical Author: Redd Moses DO Date: 12/15/17 1.Fluid overload trend labwork, to give lasix, follow closely. no urgent need for hd now but possible if fluid overload continues Ordered: Admit/Condition, 12/15/17 8:30:00 [facility], Status: Inpatient, Acute, Expected LOS: 2 Midnights, Redd Moses DO, Admit MD Review/Approve Yes 2.Acute renal failure cr 11, trend. possibly related to meds, holding for now. nephro evaluation. Ordered: Admit/Condition, 12/15/17 8:30:00 [facility], Status: Inpatient, Acute, Expected LOS: 2 Midnights, Redd Moses DO, Admit MD Review/Approve Yes 3.Acute CHF probable acute on chronic diastolic dysfunction Ordered: Admit/Condition, 12/15/17 8:30:00 [facility], Status: Inpatient, Acute, Expected LOS: 2 Midnights, Redd Moses DO, Admit MD Review/Approve Yes 4.Hypertension restart norvasc amb pending cr trend, uop, nephro recs, possible HD Extracted from:Title: Nephrology consultation Author: Nick Desir MD Date: 12/15/17 Impression and Plan 57 yo male [...] with Dr Moses. Any question, please call [phone]. Plan of Care No Data Provided for This Section Social History Social History Date Source Social History TypeResponse 12/15/2017 [facility] Substance Abuse Use: None. Exercise Exercise frequency: Daily. Exercise type: Walking. Employment/School Status: Employed. Alcohol Past, Frequency: 1-2 times per week. Smoking Status Never smoker; Previous treatment: None; Ready to change: No; Concerns about tobacco use in household: No; Exposure to Tobacco Smoke None; Cigarette Smoking Last 365 Days No; Reg Smoking Cessation Counseling No entered on: 07/22/18 Social History TypeResponse 12/15/2017 [facility] Substance Abuse Use: None. Exercise Exercise frequency: Daily. Exercise type: Walking. Employment/School Status: Employed. Alcohol Past, Frequency: 1-2 times per week. Smoking Status Never smoker; Previous treatment: None; Ready to change: No; Concerns about tobacco use in household: No; Exposure to Tobacco Smoke None; Cigarette Smoking Last 365 Days No; Reg Smoking Cessation Counseling No entered on: 07/22/18 Family History No Data Provided for This Section Advance Directives No Data Provided for This Section Functional Status No Data Provided for This Section
--- OUTSIDE RECORDS SUMMARY | 2019-04-05 13:42 | XMS REPORT ---
:1960 [facility] Address [address] [place] [address] Dr. Rodriguez [address] [place] [id number] Care Team Providers Name Role Phone Unavailable Unavailable Unavailable Problems This patient has no known problems. Allergies, Adverse Reactions, Alerts This patient has no known allergies or adverse reactions. Medications This patient has no known medications.
--- NOTE | 2019-04-05 14:48 | RAD REPORT ---
EXAM DESCRIPTION: CT - Head Brain Wo Cont - 04/05/2019 2:35 pm CLINICAL HISTORY: Alteration of awareness/confusion COMPARISON: None TECHNIQUE: Computed axial tomography of the head was obtained. IV contrast was not requested. All CT scans are performed using dose optimization technique as appropriate and may include automated exposure control or mA/KV adjustment according to patient size. FINDINGS: An intracranial bleed is not seen . The ventricles are normal in caliber. No extra-axial fluid collection is noted. Moderate low-density areas within periventricular, deep and subcortical white matter likely represent ischemic changes secondary to small vessel disease. Fluid within the sinuses/ mastoids is not seen. IMPRESSION: No acute intracranial abnormality is seen. If patient's symptoms persist MRI of the bra in would be recommended.
--- NOTE | 2019-04-05 14:51 | RAD REPORT ---
EXAM DESCRIPTION: Kiran Single View04/05/2019 2:44 pm CLINICAL HISTORY: Fever COMPARISON: April 2018 FINDINGS: Mild patchy opacities left lung Heart is mildly to moderately enlarged IMPRESSION: Mild patchy opacities left lung likely represent pneumonia
[2019-04-05 15:43] LABS: Absolute Lymphocytes (CBC) 0.8 K/uL (0.7-4.9); Basophils % 0.6 % (0-1.3); Eosinophils % 2.5 % (0-4.4); Hematocrit 37.2 % (39.6-49.0); Lymphocytes % 8.5 % (15.3-44.8); MPV 8.2 fL (7.6-11.3); Monocytes % 7.8 % (3.3-12.3); RBC Red Blood Cell Count 4.35 M/uL (4.33-5.43)
[2019-04-05 15:44] LABS: Protime INR 1.01
[2019-04-05 16:25] LABS: Albumin 2.4 g/dL (3.4-5.0); Bilirubin Direct 0.1 mg/dL (0-0.2); Bilirubin Total 0.4 mg/dL (0.2-1.0); Magnesium 1.9 mg/dL (1.8-2.4); Phosphorus 7.3 mg/dL (2.5-4.9); Protein, Total 5.7 g/dL (6.4-8.2); Troponin (Emerg Dept Use Only) 0.05 ng/mL (0.0-0.045)
--- NOTE | 2019-04-05 17:50 | P.CNS ---
Date of Consult: 04/05/19 Reason for Consult: ER consultation Requesting Physician: Burton Rubio (Nurse practitioner-[facility]) Primary Care Provider: Dr. Andrew; Nephrology-Dr. Candice Appiah([facility]) Chief Complaint: Fatigue, shortness of breath History of Present Illness: 58-year-old male presented to the emergency room with increasing fatigue and shortness of breath. Patient with underlying end-stage renal disease on peritoneal dialysis and hypertension. Patient presented to the emergency room with increased fatigue and weakness. noted some fever last night. Some mild congestion noted. In the ER patient evaluated. White count 10.0. Lactic acid negative. Pro calcitonin elevated at 1.3. Chest x-ray showed left lower lobe pneumonia. Sodium 131, potassium 4.0, BUN of 59, creatinine 15 with a GFR 3. Head CT unremarkable. I was consulted to evaluate patient for possible admission. Allergies No Known Allergies Allergy (Unverified 04/23/18 14:59) Home medications list reviewed: Yes Home Medications: Calcium Acetate 667 mg PO TID 04/23/18 Fluoxetine HCl [Prozac] 10 mg PO DAILY 04/23/18 Furosemide 40 mg PO BID 04/23/18 Hydralazine HCl 50 mg PO TID 04/23/18 Hydrocodone 5/APAP 325 [Hamlin 5/325*] 1 tab PO Q12HP PRN 04/23/18 Nifedipine [Nifedipine ER] 60 mg PO DAILY 04/23/18 Tamsulosin HCl 0.4 mg PO BEDTIME 04/23/18 hydrOXYzine HCl [Atarax] 25 mg PO TID 04/23/18 Carvedilol [Coreg] 6.25 mg PO BID #60 tab 04/24/18 - Past Medical/Surgical History Diabetic: Yes -: End-stage renal disease on peritoneal dialysis -: Hypertension -: Peritoneal dialysis port -: shoulder surgery Psychosocial/ Personal History: Patient - Family History Father Family History: Reviewed- Non-Contributory - Social History Smoking Status: Unknown if ever smoked Alcohol use: No CD- Drugs: No Caffeine use: No Place of Residence: Home Review of Systems General: Fever, As per HPI Eyes: Unremarkable ENT: Nose Congestion, As per HPI Respiratory: Shortness of Breath, As per HPI Cardiovascular: Unremarkable Gastrointestinal: Unremarkable Genitourinary: Unremarkable Musculoskeletal: Unremarkable Integumentary: Unremarkable Neurological: Unremarkable Lymphatics: Unremarkable Physical Examination General: Alert, In no apparent distress, Cooperative HEENT: Atraumatic, Normocephalic, Other (Dry mucous membranes) Neck: Supple, No Thyromegaly Respiratory: Crackles/rales (Crackles to the right base) Cardiovascular: Normal pulses, Regular rate/rhythm Gastrointestinal: Normal bowel sounds, Soft and benign, Non-distended, No tenderness, No masses, No rebound, No guarding, Other (Dialysis catheter in place to the abdomen) Musculoskeletal: No erythema, No tenderness, No warmth Integumentary: No tenderness/swelling, No erythema, No warmth, No cyanosis Neurological: Normal speech, Normal strength at 5/5 x4 extr, Normal tone, Normal affect Laboratory Data (last 24 hrs) 04/05/19 15:25: PT 11.9, INR 1.01 04/05/19 15:25: WBC 10.0, Hgb 12.4 L, Hct 37.2 L, Plt Count 152 04/05/19 15:25: Sodium 131 L, Potassium 4.0, BUN 59 H, Creatinine 15.10 H*, Glucose 74, Phosphorus 7.3 H, Magnesium 1.9, Total Bilirubin 0.4, AST 19, ALT 18 , Alkaline Phosphatase 71 Conclusions/Impression: Impression: Left lower lobe pneumonia End-stage renal disease on peritoneal dialysis Hypertension Elevated troponin Plan: I evaluated patient for possible admission to our facility. Case discussed with nephrology-Dr. Puentes. Patient requires admission for treatment and further evaluation. Since the patient is on peritoneal dialysis at home, the patient will need to be transferred to another facility that does this at their facility. Recommend ER to get in contact with his air conditioning coil assembler-Dr. Candice Appiah at [facility] to admit the patient there. Patient will require antibiotic therapy. Maintain sats above 90%. Patient will require peritoneal dialysis at his air conditioning coil assembler's facility of choice. Patient will need to continue with his hypertensive medication. Patient did have elevated troponin. This may need to be further evaluated as well. Case discussed with ER provider who agrees with plan of care. They are to arrange for transfer. Time Spent Managing Pts care (In Minutes): 55
--- NOTE | 2019-04-05 17:59 | EDPHYS ---
Physician Documentation [facility] Name: Alex Cagle Age: 58 yrs Sex: Male : 1960 Arrival Date: 04/05/2019 Time: 13:12 Bed 14 Private MD: ED Physician Burton Rubio HPI: 04/05 14:10 This 58 yrs old Male presents to ER via Wheelchair with complaints of cp Dizziness, Passed Out Prior To Arrival. 14:10 The patient presents with dizziness, generalized weakness. Onset: The symptoms/episode cp began/occurred gradually, and became worse 2 day(s) ago. Associated signs and symptoms: Pertinent positives: confusion, low grade fever, Pertinent negatives: abdominal pain, chest pain, diaphoresis, vomiting, diarrhea. Severity of symptoms: in the emergency department the symptoms are unchanged. Patient's baseline: Neuro: alert and fully oriented, Motor: no deficits, Ambulation: walks with assist only, Speech: normal. Historical: - Allergies: 13:31 NKA; ss - PMHx: 13:31 CHF; Diabetes - NIDDM; Dialysis; ESRD; Hypertension; insomnia; ss - PSHx: 13:31 Knee surgery; dialysis catheter to RLQ; ss - Immunization history:: Adult Immunizations up to date. - Social history:: Smoking status: Patient/guardian denies using tobacco. - Ebola Screening: : Patient denies exposure to infectious person Patient denies travel to an Ebola-affected area in the 21 days before illness onset. ROS: 14:15 Constitutional: Positive for low grade fever, Negative for body aches, chills. cp 14:15 ENT: Negative for drainage from ear(s), ear pain, sore throat, difficulty swallowing, cp difficulty handling secretions. 14:15 Neck: Negative for pain with movement, pain at rest, stiffness. 14:15 Cardiovascular: Negative for chest pain. 14:15 Respiratory: Negative for shortness of breath, wheezing. 14:15 Abdomen/GI: Negative for abdominal pain, vomiting, diarrhea, constipation, black/tarry stool, rectal bleeding. 14:15 Skin: Negative for cellulitis, rash. 14:15 Neuro: Positive for dizziness, weakness, confusion, Negative for headache. 14:15 All other systems are negative. Exam: 14:20 Constitutional: The patient appears in no acute distress, alert, awake, cp non-diaphoretic, non-toxic, well developed, well nourished. 14:20 Head/Face: Normocephalic, atraumatic. cp 14:20 Eyes: Periorbital structures: appear normal, Pupils: equal, round, and reactive to cp light and accomodation, Extraocular movements: intact throughout, Conjunctiva: normal, no exudate, no injection, Sclera: no appreciated abnormality, Lids and lashes: appear normal, bilaterally. 14:20 ENT: External ear(s): are unremarkable, Ear canal(s): are normal, clear, TM's: are cp normal, no evidence of bulging, no erythema, Nose: is normal, Mouth: is normal, Posterior pharynx: is normal, airway is patent, no erythema, no exudate. 14:20 Neck: ROM/movement: is normal, is supple, without pain, no range of motions limitations, no meningismus, no nuchal rigidity. 14:20 Chest/axilla: Inspection: normal, Palpation: is normal, no crepitus, no tenderness. 14:20 Cardiovascular: Rate: normal, Rhythm: regular, Edema: is not appreciated, JVD: is not appreciated. 14:20 Respiratory: the patient does not display signs of respiratory distress, Respirations: normal, no use of accessory muscles, no retractions, no splinting, no tachypnea, labored breathing, is not present, Breath sounds: bronchial sounds, that are mild, are heard diffusely, decreased breath sounds, that are mild, are located in both bases, wheezing: is not appreciated. 14:20 Abdomen/GI: Inspection: distension, is not seen, Bowel sounds: active, all quadrants, Palpation: abdomen is soft and non-tender, in all quadrants, voluntary guarding, is not appreciated, involuntary guarding, is not appreciated. 14:20 Back: pain, is absent, normal spinal alignment noted. 14:20 Skin: cellulitis, is not appreciated, no rash present. 14:20 Neuro: Orientation: to person, situation, Not oriented to time, Mentation: able to follow commands, slow to respond, confused, Cerebellar function: Romberg testing is negative, normal finger to nose testing, Motor: moves all fours, strength is normal, Sensation: no obvious gross deficits. 15:15 ECG was reviewed by the Attending Physician. cp Vital Signs: 13:31 BP 173 / 99; Pulse 77; Resp 18; Temp 99.5(TE); Pulse Ox 94% on R/A; Weight 92.99 kg; ss Height 5 ft. 6 in. (167.64 cm); Pain 0/10; 14:12 BP 175 / 94; Pulse 70; Resp 18; Pulse Ox 95% on R/A; aj1 14:20 BP 171 / 110 Supine; Pulse 70; em1 14:23 BP 180 / 107 Sitting; Pulse 72; em1 14:25 BP 182 / 109 Standing; Pulse 80; em1 16:41 BP 188 / 101; Pulse 76; Resp 18; Pulse Ox 96% on R/A; aj1 17:45 BP 179 / 105; Pulse 88; Resp 18; Pulse Ox 95% on R/A; aj1 18:32 BP 183 / 105; Pulse 87; Resp 18; Pulse Ox 94% on R/A; aj1 19:00 BP 184 / 109; Pulse 88; Resp 19; Temp 98.8(O); Pulse Ox 99% ; ea 13:31 Body Mass Index 33.09 (92.99 kg, 167.64 cm) ss MDM: 14:06 Patient medically screened. cp 15:00 Differential diagnosis: cardiac arrhythmia, CVA, hypovolemia, sepsis, pneumonia. cp 17:05 Data reviewed: vital signs, nurses notes, lab test result(s), EKG, radiologic studies, cp plain films. 17:05 Test interpretation: by ED physician or midlevel provider: ECG. 04/05 14:17 Order name: Basic Metabolic Panel; Complete Time: 16:28 cp 04/05 16:29 Interpretation: Normal except: NA 131; CL 96; BUN 59; CRE 15.10; GFR 3; CA 8.4. cp 04/05 14:17 Order name: CBC with Diff; Complete Time: 16:14 cp 04/05 16:15 Interpretation: Normal except: HGB 12.4; HCT 37.2; MCV 85.4; JACOB% 80.6; LYM% 8.5; NEUT cp A 8.1. 04/05 14:17 Order name: LFT's; Complete Time: 16:28 cp 04/05 16:38 Interpretation: Normal except: TP 5.7; ALB 2.4; A/G 0.7. cp / 14:17 Order name: Magnesium; Complete Time: 16:28 cp 04/05 14:17 Order name: NT PRO-BNP; Complete Time: 16:28 04/05 16:29 Interpretation: Abnormal: NT PRO-BNP 69210. / 14:17 Order name: PT-INR; Complete Time: 16:14 cp 04/05 14:17 Order name: Troponin (emerg Dept Use Only); Complete Time: 16:28 04/05 16:29 Interpretation: Abnormal: TROPED 0.05. cp 04/05 14:17 Order name: XRAY Chest (1 view); Complete Time: 15:24 04/05 14:17 Order name: CT Head Brain wo Cont; Complete Time: 15:24 04/05 15:24 Interpretation: Report reviewed. 04/05 14:17 Order name: Procalcitonin; Complete Time: 16:27 04/05 16:27 Interpretation: Abnormal: Procalcitonin 1.33. 04/05 14:17 Order name: Lactate; Complete Time: 16:14 04/05 16:15 Interpretation: Within normal limits: LAC 0.4. 04/05 14:17 Order name: Phosphorus; Complete Time: 16:28 04/05 16:38 Interpretation: Abnormal: PHOS 7.3. 04/05 14:17 Order name: Blood Culture Adult (2) 04/05 13:58 Order name: Orthostatics; Complete Time: 14:31 cp 04/05 14:17 Order name: EKG; Complete Time: 14:21 04/05 14:17 Order name: Cardiac monitoring; Complete Time: 15:26 04/05 14:17 Order name: EKG - Nurse/Tech; Complete Time: 15:31 cp 04/05 14:17 Order name: IV Saline Lock; Complete Time: 15:32 cp 04/05 14:17 Order name: Labs collected and sent; Complete Time: 15:32 cp 04/05 14:17 Order name: O2 Per Protocol; Complete Time: 14:24 cp 04/05 14:17 Order name: O2 Sat Monitoring; Complete Time: 14:24 cp EC:15 Rate is 66 beats/min. Rhythm is regular. VT interval is normal. QRS interval is normal. cp QT interval is normal. T waves are Inverted in lead III. Interpreted by me. Reviewed by me. Administered Medications: 17:52 Drug: Rocephin - (cefTRIAXone) 1 grams Route: IVPB; Infused Over: 30 mins; Site: left aj1 antecubital; 17:52 Drug: hydrALAZINE 5 mg Route: IV; Rate: calculated rate; Site: left antecubital; aj1 18:29 Drug: Zithromax 500 mg Route: IVPB; Infused Over: 1 hrs; Site: left forearm; aj1 19:20 Follow up: Response: No adverse reaction; IV Status: Infusion continued upon transfer ea Disposition: 18:00 Chart complete. cp Disposition: 04/05/19 17:56 Transfer ordered to Other Acute Care Facility. Diagnosis are Pneumonia due to other specified bacteria, Altered mental status, unspecified, Weakness - general, Hyperphosphatemia. - Reason for transfer: Higher level of care. - Accepting physician is Tejal Moreira. - Condition is Stable. - Problem is new. - Symptoms have improved. Addendum: 04/07/2019 04:30 Co-signature as Attending Physician, Burton Rubio MD. g s Signatures: Dispatcher [employer] EDXochitl Zuniga RN RN aj1 Keily Méndez RN RN ss Page, Corey, PA PA cp Nivia Langley RN RN ea Starr, Gregory, MD MD Corrections: (The following items were deleted from the chart) 04/05 16:29 16:28 Normal except: NA 131; CL 96; BUN 59; CRE 15.10; GFR 3. cp cp 18:03 17:56 04/05/2019 17:56 Transfer ordered to Other Acute Care Facility. Diagnosis is cp Pneumonia due to other specified bacteria; Altered mental status, unspecified; Weakness - general; Hyperphosphatemia. Reason for transfer: Higher level of care. Accepting physician is Doctor. Condition is Stable. Problem is new. Symptoms have improved. cp 19:19 18:03 04/05/2019 17:56 Transfer ordered to Other Acute Care Facility. Diagnosis is ea Pneumonia due to other specified bacteria; Altered mental status, unspecified; Weakness - general; Hyperphosphatemia. Reason for transfer: Higher level of care. Accepting physician is Tejal Moreira. Condition is Stable. Problem is new. Symptoms have improved. cp
--- NOTE | 2019-04-05 17:59 | ER ---
Nurse's Notes [facility] Name: Alex Cagle Age: 58 yrs Sex: Male : 1960 Arrival Date: 04/05/2019 Time: 13:12 Bed 14 Private MD: Diagnosis: Pneumonia due to other specified bacteria;Altered mental status, unspecified;Weakness-general;Hyperphosphatemia Presentation: 04/05 13:29 Presenting complaint: Patient states: generalized weakness, legs buckling and confusion ss x 1 month that is getting worse. Low grade fever that began last night. TMAX 99.0. Transition of care: patient was not received from another setting of care. Onset of symptoms is unknown. Risk Assessment: Do you want to hurt yourself or someone else? Patient reports no desire to harm self or others. Initial Sepsis Screen: Does the patient meet any 2 criteria? No. Patient's initial sepsis screen is negative. Does the patient have a suspected source of infection? No. Patient's initial sepsis screen is negative. Care prior to arrival: None. 13:29 Method Of Arrival: Wheelchair ss 13:29 Acuity: DEJAN 3 ss Historical: - Allergies: 13:31 NKA; ss - PMHx: 13:31 CHF; Diabetes - NIDDM; Dialysis; ESRD; Hypertension; insomnia; ss - PSHx: 13:31 Knee surgery; dialysis catheter to RLQ; ss - Immunization history:: Adult Immunizations up to date. - Social history:: Smoking status: Patient/guardian denies using tobacco. - Ebola Screening: : Patient denies exposure to infectious person Patient denies travel to an Ebola-affected area in the 21 days before illness onset. Screenin:12 Abuse screen: Denies threats or abuse. Denies injuries from another. Nutritional aj1 screening: No deficits noted. Tuberculosis screening: No symptoms or risk factors identified. 18:32 Fall Risk No fall in past 12 months (0 pts). Secondary diagnosis (15 points) impaired aj1 mobility, IV access (20 points). Ambulatory Aid- None/Bed Rest/Nurse Assist (0 pts). Gait- Weak (10 pts.). Mental Status- Oriented to own ability (0 pts). Total Lockhart Fall Scale indicates Low Risk Score (25-44 pts). Fall prevention measures have been instituted. As available Patient and Family Educated on Fall Prevention Program and strategies. Assessment: 14:12 General: Appears in no apparent distress. comfortable, Behavior is calm, cooperative, aj1 appropriate for age. Pain: Denies pain. Neuro: Level of Consciousness is awake, alert, obeys commands, Oriented to person, place, time, situation, Moves all extremities. generalized weakness. Speech is normal, Facial symmetry appears normal, Reports dizziness. Cardiovascular: Patient's skin is warm and dry. Respiratory: Airway is patent Respiratory effort is even, unlabored, Respiratory pattern is regular, symmetrical. GI: No signs and/or symptoms were reported involving the gastrointestinal system. : No signs and/or symptoms were reported regarding the genitourinary system. EENT: No signs and/or symptoms were reported regarding the EENT system. Derm: No signs and/or symptoms reported regarding the dermatologic system. Skin is pink, warm \T\ dry. normal. Musculoskeletal: No signs and/or symptoms reported regarding the musculoskeletal system. Circulation, motion, and sensation intact. 15:20 Reassessment: Patient appears in no apparent distress at this time. No changes from aj1 previously documented assessment. Patient and/or family updated on plan of care and expected duration. Pain level reassessed. Patient is alert, oriented x 3, equal unlabored respirations, skin warm/dry/pink. 16:39 Reassessment: Patient appears in no apparent distress at this time. No changes from aj1 previously documented assessment. Patient and/or family updated on plan of care and expected duration. Pain level reassessed. Patient is alert, oriented x 3, equal unlabored respirations, skin warm/dry/pink. 17:30 Reassessment: Patient and/or family updated on plan of care and expected duration. Pain aj1 level reassessed. General: Appears in no apparent distress. comfortable, Behavior is calm, cooperative, appropriate for age. Pain: Denies pain. Neuro: Level of Consciousness is awake, alert, obeys commands, Oriented to person, place, time, situation, Moves all extremities. Reports dizziness, generalized weakness. Cardiovascular: Patient's skin is warm and dry. Rhythm is sinus rhythm. Respiratory: Reports cough that is productive, Airway is patent Respiratory effort is even, unlabored, Respiratory pattern is regular, symmetrical. Derm: No signs and/or symptoms reported regarding the dermatologic system. Skin is pink, warm \T\ dry. normal. 18:30 Reassessment: Patient appears in no apparent distress at this time. No changes from aj1 previously documented assessment. Patient and/or family updated on plan of care and expected duration. Pain level reassessed. Patient is alert, oriented x 3, equal unlabored respirations, skin warm/dry/pink. 19:15 Reassessment: Patient and/or family updated on plan of care and expected duration. Pain ea level reassessed. Patient is alert, oriented x 3, equal unlabored respirations, skin warm/dry/pink. [facility] at facility for transfer. Report given to EMS. Pt taken via stretcher, pt tolerating well. Vital Signs: 13:31 BP 173 / 99; Pulse 77; Resp 18; Temp 99.5(TE); Pulse Ox 94% on R/A; Weight 92.99 kg; ss Height 5 ft. 6 in. (167.64 cm); Pain 0/10; 14:12 BP 175 / 94; Pulse 70; Resp 18; Pulse Ox 95% on R/A; aj1 14:20 BP 171 / 110 Supine; Pulse 70; em1 14:23 BP 180 / 107 Sitting; Pulse 72; em1 14:25 BP 182 / 109 Standing; Pulse 80; em1 16:41 BP 188 / 101; Pulse 76; Resp 18; Pulse Ox 96% on R/A; aj1 17:45 BP 179 / 105; Pulse 88; Resp 18; Pulse Ox 95% on R/A; aj1 18:32 BP 183 / 105; Pulse 87; Resp 18; Pulse Ox 94% on R/A; aj1 19:00 BP 184 / 109; Pulse 88; Resp 19; Temp 98.8(O); Pulse Ox 99% ; ea 13:31 Body Mass Index 33.09 (92.99 kg, 167.64 cm) ED Course: 13:12 Patient arrived in ED. as 13:30 Triage completed. ss 13:31 Arm band placed on right wrist. ss 13:36 Xochitl Francis, KATIANA is Primary Nurse. aj1 13:58 Ambrocio Mcdowell PA is PHCP. cp 13:58 Burton Rubio MD is Attending Physician. cp 14:12 Patient has correct armband on for positive identification. aj1 14:12 No provider procedures requiring assistance completed. aj1 14:36 CT Head Brain wo Cont In Process Unspecified. EDMS 14:40 X-ray completed. Patient tolerated procedure well. ml 14:41 XRAY Chest (1 view) In Process Unspecified. EDMS 15:11 EKG done, by veterinary technology instructor. reviewed by Ambrocio ACEVEDO. 3 15:25 Initial lab(s) drawn, by sc, sent to lab. First set of blood cultures drawn. Inserted em1 saline lock: 20 gauge in left forearm, using aseptic technique. Blood collected. 17:04 initiated a transfer with Louis from the [facility]. eb 17:43 connected the hospitalist pickling solution maker for [facility] with Ambrocio ACEVEDO for eb patient transfer consultation. 17:57 administrative approval given by Louis Hyde RN transfer coord/ patient has been eb accepted to [facility] by Dr. Moreira/ patient is going to the medical floor and report is to be called to [phone]. 18:31 Report given to KATIANA Reeves at [facility]. aj1 18:31 Patient transferred, IV remains in place. aj1 Administered Medications: 17:52 Drug: Rocephin - (cefTRIAXone) 1 grams Route: IVPB; Infused Over: 30 mins; Site: left aj1 antecubital; 17:52 Drug: hydrALAZINE 5 mg Route: IV; Rate: calculated rate; Site: left antecubital; aj1 18:29 Drug: Zithromax 500 mg Route: IVPB; Infused Over: 1 hrs; Site: left forearm; aj1 19:20 Follow up: Response: No adverse reaction; IV Status: Infusion continued upon transfer ea Outcome: 17:56 ER care complete, transfer ordered by MD. cuevas 19:18 Transferred by ground EMS to other acute care facility: [facility]. Transfer ea form completed. 19:18 Condition: stable 19:18 Instructed on the need for transfer. 19:19 Patient left the ED. ea Signatures: Dispatcher [employer] EDMS Xochitl Francis RN RN aj1 Sheron Chilel Melissa ml Martinez, Eric em1 Keily Méndez RN RN ss Page, Corey, PA PA cp Antunez, Elena, RN RN ea Botello, Elizabeth eb Montes, Shakira 3
[2019-04-05] MEDS ORDERED: CEFTRIAXONE/SWI 1gm 1 GM/10 ML SYR ONE (18:00)
[2019-04-05] MEDS ORDERED: HYDRALAZINE HCL 20 MG/ML VIAL ONE (18:00)
[2019-04-05] MEDS ORDERED: AZITHROMYCIN IV 500 MG in NA CHLORIDE 0.9% 250 ML IVPB ONE (18:00)
--- NOTE | 2019-04-05 23:20 | EKG ---
Test Date: 2019-04-05 Test Time: 15:06:43 Warp Spinner: WHITLEY MEASUREMENT RESULTS: Intervals: Rate: 66 NV: 184 QRSD: 94 QT: 448 QTc: 469 [place]: P: 27 NV: 184 QRS: 70 T: 38 INTERPRETIVE STATEMENTS: Normal sinus rhythm Normal ECG Compared to ECG 04/23/2018 13:21:19 Right-axis deviation no longer present T-wave abnormality no longer present Prolonged QT interval no longer present Electronically Signed On 04-05-19 23:19:40 CDT by Shahzad Martínez
== END 2019-04-05 19:19 ==
LOC: ER 13:10
DX: J15.8 Pneumonia due to other specified bacteria (principal); E83.39 Other disorders of phosphorus metabolism; R53.1 Weakness; I12.0 Hypertensive chronic kidney disease with stage 5 chronic kidney disease or end stage renal disease; E11.22 Type 2 diabetes mellitus with diabetic chronic kidney disease; N18.6 End stage renal disease; Z99.2 Dependence on renal dialysis
CPT/HCPCS: 96365; 93005; 87040 ×2; 85025; 80048; 36415; 83735; 84100; 85610; 80076; 83605; 84484; 84145; 83880; 70450; 71045; 96375; 99285; J0360; J0456; J0696

== ENCOUNTER 2019-08-14 06:05 | Emergency (ER) | payer OTHER ==
--- NOTE | 2019-08-14 06:31 | EKG ---
Test Date: 2019-08-14 Test Time: 06:23:14 Core Sucker: DEVANG MEASUREMENT RESULTS: Intervals: Rate: 66 NE: 208 QRSD: 104 QT: 462 QTc: 484 [place]: P: 45 NE: 208 QRS: 86 T: 45 INTERPRETIVE STATEMENTS: Normal sinus rhythm Prolonged QT Abnormal ECG Compared to ECG 04/05/2019 15:06:43 Prolonged QT interval now present Electronically Signed On 08-14-19 06:31:15 DIRECT MARKETING ANALYST by Shahzad Martínez
[2019-08-14] MEDS ORDERED: HYDRALAZINE HCL 20 MG/ML VIAL ONE ×2 (06:32→10:06)
[2019-08-14 07:22] LABS: Absolute Lymphocytes (CBC) 0.6 K/uL (0.7-4.9); Basophils % 0.8 % (0-1.3); Hematocrit 25.2 % (39.6-49.0); Lymphocytes % 7.4 % (15.3-44.8); MPV 7.9 fL (7.6-11.3); RBC Red Blood Cell Count 2.89 M/uL (4.33-5.43)
[2019-08-14 07:24] LABS: Protime INR 0.97
[2019-08-14 07:57] LABS: ALT/SGPT 18 U/L (12-78); AST/SGOT 22 U/L (15-37); Albumin 2.7 g/dL (3.4-5.0); Alkaline Phosphatase 68 U/L (45-117); BUN Blood Urea Nitrogen 59 mg/dL (7-18); Bicarbonate 25 mmol/L (21-32); Bilirubin Direct 0.1 mg/dL (0-0.2); Bilirubin Total 0.5 mg/dL (0.2-1.0); Glucose Level 71 mg/dL (74-106); Magnesium 2.6 mg/dL (1.8-2.4); NT PRO-BNP > 35000 pg/mL (<125); Protein, Total 5.7 g/dL (6.4-8.2); Sodium Level 134 mmol/L (136-145); Troponin (Emerg Dept Use Only) 0.06 ng/mL (0.0-0.045)
--- NOTE | 2019-08-14 08:00 | RAD REPORT ---
EXAM DESCRIPTION: RAD - Chest Single View - 08/14/2019 6:56 am CLINICAL HISTORY: Shortness of breath, transient alteration of awareness COMPARISON: April 05 TECHNIQUE: AP portable chest image was obtained 0651 hours . FINDINGS: Lung volumes are low limiting examination. Heart size is upper normal. Vasculature is mild ly prominent. Retrocardiac left base assessment is very limited. No measurable pleural effusion and n o pneumothorax. No acute bony abnormality seen. No acute aortic findings suspected. IMPRESSION: No focal pneumonia identified though retrocardiac left base assessment is limited. Heart, vasculature and lung markings are mildly prominent. A minimal component of failure or volume o verload not excluded.
--- NOTE | 2019-08-14 08:28 | RAD REPORT ---
EXAM DESCRIPTION: CT - Head Brain Wo Cont - 08/14/2019 6:51 am CLINICAL HISTORY: Transient alteration of awareness COMPARISON: March 2019 TECHNIQUE: Axial 5 mm thick images of the head were obtained without IV contrast. All CT scans are performed using dose optimization technique as appropriate and may include automated exposure control or mA/KV adjustment according to patient size. FINDINGS: No intracranial hemorrhage, mass, edema or shift of mid-line structures. No acute cortical based infarction. No cortical edema or sulcal effacement. Atrophy changes are mild. Ventricles appea r slightly out of proportion to the amount of volume loss. This is a stable pattern over the short in terval since March 2019. Correlation is needed with any clinical findings of normal pressure hydroceph alus. Prominent chronic ischemic change seen in the cerebral white matter. The 10 mm low-density area lateral left basal ganglia is probably a perivascular space rather than an old infarction. Mastoid air cells and visualized portions of the paranasal sinuses are clear. No acute bony findings. Due to technical malfunction, final report was delayed. IMPRESSION: No hemorrhage or other acute intracranial finding identifiable. Patient has mild atrophy and prominent white matter chronic ischemic change all very prominent for pa tient age. Ventricles appear out of proportion to the amount of volume loss. This is a stable pattern but correl ation can be made with any normal pressure hydrocephalus exam findings.
[2019-08-14] MEDS ORDERED: hydrOXYzine HCl 25 MG TAB ONE (09:12)
[2019-08-14] MEDS ORDERED: CEFTRIAXONE/SWI 1gm 2 GM/20 ML SYR ONE (10:06)
--- NOTE | 2019-08-14 10:11 | ER ---
Nurse's Notes [facility] Name: Alex Cagle Age: 58 yrs Sex: Male : 1960 Arrival Date: 08/14/2019 Time: 06:07 Bed 2 Private MD: Diagnosis: Essential (primary) hypertension;Altered mental status, unspecified Presentation: 08/14 06:27 Presenting complaint: states: "He's has not been acting like himself since last lp1 night. He seems kind of lethargic"; states unable to do peritoneal dialysis last night due to machine malfunction. Transition of care: patient was not received from another setting of care. Onset of symptoms was August 14, 2019. Risk Assessment: Do you want to hurt yourself or someone else? Patient reports no desire to harm self or others. Initial Sepsis Screen: Does the patient meet any 2 criteria? No. Patient's initial sepsis screen is negative. Does the patient have a suspected source of infection? No. Patient's initial sepsis screen is negative. Care prior to arrival: None. 06:27 Method Of Arrival: Wheelchair lp1 06:27 Acuity: DEJAN 2 lp1 Historical: - Allergies: 06:32 NKA; lp1 - Home Meds: 06:34 acetaminophen-codeine 300-30 mg Oral tab every 6 hours [Active]; amlodipine-benazepril lp1 10-20 mg oral cap three times a day [Active]; tamsulosin 0.4 mg oral cp24 1 cap once daily [Active]; carvedilol 6.25 mg oral tab 2 times per day [Active]; hydralazine 50 mg Oral tab three times a day [Active]; hydroxyzine HCl 25 mg Oral tab 3 times per day [Active]; Fauzia-Conor 0.8 mg oral tab daily [Active]; furosemide 80 mg Oral tab 1 tab 3 times per day [Active]; - PMHx: 06:32 CHF; Diabetes - NIDDM; ESRD; Hypertension; insomnia; lp1 - PSHx: 06:34 Shoulder surgery; lp1 - Immunization history:: Adult Immunizations up to date. - Social history:: Smoking status: Patient/guardian denies using tobacco. - Ebola Screening: : No symptoms or risks identified at this time. Screenin:35 Abuse screen: Denies threats or abuse. Denies injuries from another. Nutritional lp1 screening: No deficits noted. Tuberculosis screening: No symptoms or risk factors identified. Fall Risk Total Lockhart Fall Scale indicates High Risk Score (45 or more points). Fall prevention measures have been instituted. Side Rails Up X 2 Frequent Obs/Assessments Occuring Family Present and informed to notify staff if the need to leave the bedside As available patient and family educated on Fall Prevention Program and Strategies. Assessment: 06:39 General: Appears in no apparent distress. Behavior is calm. Pain: Denies pain. Neuro: lp1 Level of Consciousness is obeys commands, Awake on verbal stimuli, . Oriented to person. Cardiovascular: Patient's skin is warm and dry. Respiratory: Respiratory effort is even, labored, Breath sounds are diminished bilaterally. GI: Abdomen is round Peritoneal dialysis site to lower abdomen. : No signs and/or symptoms were reported regarding the genitourinary system. EENT: No signs and/or symptoms were reported regarding the EENT system. Derm: Skin is intact, with poor turgor Skin is dry, Skin is normal. Musculoskeletal: No deficits noted. 07:23 Reassessment: Pt's states "He was supposed to have his amlodipine filled on July but Dr. Andrew had not put in for the refill so the pharmacy loaned him 3 pills which is enough for one day. He hasn't had any amlodipine since then." ERP notified and updated on BP, awaiting lab results for new orders. Patient denies pain at this time. Neuro: Level of Consciousness is obeys commands, lethargic, Oriented to person. 09:05 Reassessment: Pt appears restless and is scratching his face and back, unable to jl7 verbalize how he is feeling or if he's in pain. ERP notified, see MAR for orders. 10:47 Reassessment: Post straight cath pt's agitation increased, would no get back in the bed jl7 and kept repeating "I need to go now." Pt reports needing to go to the bath room but would not use the urinal. Continually trying to leave and refusing to get in the bed. ERD notified, see MAR for orders. 11:00 Reassessment: pt laying in bed with eyes closed, respirations even and unlabored, no jl7 signs of distress noted. Pt's family remains at bedside. 12:00 Reassessment: Patient appears in no apparent distress at this time. No changes from jl7 previously documented assessment. Patient and/or family updated on plan of care and expected duration. Pain level reassessed. 13:00 Reassessment: Patient appears in no apparent distress at this time. No changes from jl7 previously documented assessment. Patient and/or family updated on plan of care and expected duration. Pain level reassessed. Vital Signs: 06:29 BP 205 / 122; Pulse 72; Resp 24; Temp 99; Pulse Ox 89% on R/A; Weight 88.45 kg; Pain lp1 0/10; 06:29 Pulse Ox 96% on 2 lpm NC; lp1 06:41 BP 201 / 107; Pulse 68; Resp 19; Temp 98.1(O); Pulse Ox 97% on 2 lpm NC; lp1 07:18 BP 193 / 104; Pulse 72; Resp 16 S; Pulse Ox 97% on 2 lpm NC; jl7 08:11 BP 194 / 97; Pulse 71; Resp 16; Pulse Ox 99% ; sv 09:37 BP 182 / 108; Pulse 76; Resp 19 S; Pulse Ox 96% on R/A; jl7 11:15 BP 202 / 107; Pulse 68; Resp 18; Temp 99.0(TE); Pulse Ox 96% on R/A; em1 11:36 BP 189 / 106; Pulse 68; Resp 14 S; Pulse Ox 97% on R/A; jl7 12:58 BP 197 / 108; Pulse 75; Resp 16; Pulse Ox 99% ; sv ED Course: 06:07 Patient arrived in ED. ds1 06:22 Kailee Olsen FNP-C is PHCP. kb 06:22 Rodríguez Olguin MD is Attending Physician. kb 06:29 Triage completed. lp1 06:29 Arm band placed on left wrist. lp1 06:35 Patient has correct armband on for positive identification. Placed in gown. Bed in low lp1 position. Side rails up X2. smutter on. Pulse ox on. NIBP on. 06:39 Inserted saline lock: 20 gauge in left forearm, using aseptic technique. Blood lp1 collected. By KATIANA Gonzáles. 06:45 Rashida Simms RN is Primary Nurse. lp1 06:51 CT completed. Patient tolerated procedure well. Patient moved to CT via stretcher. Patient moved back from CT. 06:52 XRAY Chest (1 view) In Process Unspecified. EDMS 06:52 CT Head Brain wo Cont In Process Unspecified. EDMS 08:09 Attending Physician role handed off by Rodríguez Olguin MD kdr 08:09 Clayton Begum MD is Attending Physician. kdr 08:41 Primary Nurse role handed off by Rashida Simms RN jl7 08:41 Niles Kurtz RN is Primary Nurse. jl7 09:00 First set of blood cultures drawn by me. jl7 09:05 Inserted saline lock: 22 gauge in right antecubital area, using aseptic technique. jl7 Blood collected. 09:15 Second set of blood cultures drawn by me. jl7 10:10 Garth Smith DO is Hospitalizing Provider. kb 10:20 Urine collected: straight cath specimen, clear, Amount Returned: 50mL. Straight cath jl7 inserted, using sterile technique, 16 Fr. Specimen obtained. Returned clear yellow urine. Patient tolerated poorly. 13:25 No provider procedures requiring assistance completed. Patient transferred, IV remains jl7 in place. intact, No redness/swelling at site. Administered Medications: 06:38 Drug: hydrALAZINE 10 mg {Note: By KATIANA Gonzáles.} Route: IV; Rate: calculated rate; Site: lp1 left forearm; 07:00 Follow up: Response: No adverse reaction; Blood pressure is lowered; IV Status: jl7 Completed infusion 09:09 CANCELLED (Duplicate Order): Atarax 50 mg PO once kb 09:15 Drug: Atarax 25 mg Route: PO; jl7 10:00 Follow up: Response: No adverse reaction; No change in condition jl7 10:25 Drug: hydrALAZINE 10 mg Route: IV; Rate: calculated rate; Site: left wrist; jl7 10:30 Follow up: Response: No adverse reaction; IV Status: Completed infusion jl7 10:34 Drug: Ativan 1 mg Route: IVP; Site: right antecubital; jl7 10:36 Follow up: Response: No adverse reaction; Marked relief of symptoms jl7 10:50 Drug: Rocephin 2 grams Route: IV; Rate: calculated rate; Site: left forearm; jl7 10:56 Follow up: Response: No adverse reaction; IV Status: Completed infusion jl7 12:45 Drug: amLODIPine 10 mg Route: PO; jl7 13:27 Follow up: Response: No adverse reaction jl7 12:45 Drug: benazepril 20 mg Route: PO; jl7 13:27 Follow up: Response: No adverse reaction jl7 12:45 Drug: carvedilol 6.25 mg Route: PO; jl7 13:26 Follow up: Response: No adverse reaction jl7 12:45 Drug: HydrALAZINE 50 mg Route: PO; jl7 13:26 Follow up: Response: No adverse reaction jl7 Outcome: 10:10 Decision to Hospitalize by Provider. kb 11:27 ER care complete, transfer ordered by . kb 13:25 Transferred by ground EMS to [facility], Transfer form completed. jl7 13:25 Condition: stable 13:25 Discharge instructions given to family, Instructed on the need for transfer, Demonstrated understanding of instructions. 13:28 Patient left the ED. jl7 Signatures: Dispatcher [employer] EDKailee Guaman, SOLDER LEVELER PRINTED CIRCUIT BOARDS-C SOLDER LEVELER PRINTED CIRCUIT BOARDS-CkTerri Butler, RN RN Clayton Hurtado MD MD kdr Hagler, Ervin eh Sanford, Demi ds1 Martinez, Eric em1 Pena, Laura, RN RN lp1 Niles Kurtz RN RN jl7
--- NOTE | 2019-08-14 10:11 | EDPHYS ---
Physician Documentation [facility] Name: Alex Cagle Age: 58 yrs Sex: Male : 1960 Arrival Date: 08/14/2019 Time: 06:07 Bed 2 Private MD: ED Physician Clayton Begum HPI: 08/14 10:06 This 58 yrs old Male presents to ER via Wheelchair with complaints of Altered kb Mental Status. 10:06 The patient presents with decreased mental status. Onset: The symptoms/episode kb began/occurred last night. Possible causes: unknown. Associated signs and symptoms: Pertinent positives: confusion. Current symptoms: In the emergency department the patient's symptoms are unchanged from the initial presentation. Patient's baseline: Neuro: alert and fully oriented, Motor: no deficits, Ambulation: walks without assistance, Speech: normal. The patient has not experienced similar symptoms in the past. The patient has not recently seen a physician. reports pt has been incoherent since last night. Reports he has peritoneal dialysis daily and his machine has been acting up over the last few days so she isn't sure if that is the problem. Pt denies any pain, follows commands and answers questions, but is difficult to keep his attention/him awake. . Historical: - Allergies: 06:32 NKA; lp1 - Home Meds: 06:34 acetaminophen-codeine 300-30 mg Oral tab every 6 hours [Active]; amlodipine-benazepril lp1 10-20 mg oral cap three times a day [Active]; tamsulosin 0.4 mg oral cp24 1 cap once daily [Active]; carvedilol 6.25 mg oral tab 2 times per day [Active]; hydralazine 50 mg Oral tab three times a day [Active]; hydroxyzine HCl 25 mg Oral tab 3 times per day [Active]; Fauzia-Conor 0.8 mg oral tab daily [Active]; furosemide 80 mg Oral tab 1 tab 3 times per day [Active]; - PMHx: 06:32 CHF; Diabetes - NIDDM; ESRD; Hypertension; insomnia; lp1 - PSHx: 06:34 Shoulder surgery; lp1 - Immunization history:: Adult Immunizations up to date. - Social history:: Smoking status: Patient/guardian denies using tobacco. - Ebola Screening: : No symptoms or risks identified at this time. ROS: 10:04 Constitutional: Negative for fever, chills, and weight loss, ENT: Negative for injury, kb pain, and discharge, Neck: Negative for injury, pain, and swelling, Cardiovascular: Negative for chest pain, palpitations, and edema, Respiratory: Negative for shortness of breath, cough, wheezing, and pleuritic chest pain, Abdomen/GI: Negative for abdominal pain, nausea, vomiting, diarrhea, and constipation, Back: Negative for injury and pain, MS/Extremity: Negative for injury and deformity, Skin: Negative for injury, rash, and discoloration. 10:04 Neuro: Positive for altered mental status. Exam: 10:04 Constitutional: This is a well developed, well nourished patient who is awake, alert, kb and in no acute distress. Head/Face: Normocephalic, atraumatic. ENT: Nares patent. No nasal discharge, no septal abnormalities noted. Tympanic membranes are normal and external auditory canals are clear. Oropharynx with no redness, swelling, or masses, exudates, or evidence of obstruction, uvula midline. Mucous membranes moist. Neck: Trachea midline, no thyromegaly or masses palpated, and no cervical lymphadenopathy. Supple, full range of motion without nuchal rigidity, or vertebral point tenderness. No Meningismus. Chest/axilla: Normal chest wall appearance and motion. Nontender with no deformity. No lesions are appreciated. Cardiovascular: Regular rate and rhythm with a normal S1 and S2. No gallops, murmurs, or rubs. Normal PMI, no JVD. No pulse deficits. Respiratory: Lungs have equal breath sounds bilaterally, clear to auscultation and percussion. No rales, rhonchi or wheezes noted. No increased work of breathing, no retractions or nasal flaring. Back: No spinal tenderness. No costovertebral tenderness. Full range of motion. Skin: Warm, dry with normal turgor. Normal color with no rashes, no lesions, and no evidence of cellulitis. MS/ Extremity: Pulses equal, no cyanosis. Neurovascular intact. Full, normal range of motion. 10:04 Abdomen/GI: Inspection: peritoneal catheter to lower abd, Bowel sounds: normal, Palpation: abdomen is soft and non-tender, in all quadrants. 10:04 Neuro: Orientation: to person, Mentation: able to follow commands, Cranial nerves: extraocular movements are intact, Motor: is normal, moves all fours, strength is normal, Sensation: is normal, Gait: unable to assess. Vital Signs: 06:29 BP 205 / 122; Pulse 72; Resp 24; Temp 99; Pulse Ox 89% on R/A; Weight 88.45 kg; Pain lp1 0/10; 06:29 Pulse Ox 96% on 2 lpm NC; lp1 06:41 BP 201 / 107; Pulse 68; Resp 19; Temp 98.1(O); Pulse Ox 97% on 2 lpm NC; lp1 07:18 BP 193 / 104; Pulse 72; Resp 16 S; Pulse Ox 97% on 2 lpm NC; jl7 08:11 BP 194 / 97; Pulse 71; Resp 16; Pulse Ox 99% ; sv 09:37 BP 182 / 108; Pulse 76; Resp 19 S; Pulse Ox 96% on R/A; jl7 11:15 BP 202 / 107; Pulse 68; Resp 18; Temp 99.0(TE); Pulse Ox 96% on R/A; em1 11:36 BP 189 / 106; Pulse 68; Resp 14 S; Pulse Ox 97% on R/A; jl7 12:58 BP 197 / 108; Pulse 75; Resp 16; Pulse Ox 99% ; sv MDM: 06:22 Patient medically screened. kb 07:08 Data reviewed: vital signs, nurses notes. Data interpreted: Pulse oximetry: on room air kb is 97 %. Interpretation: normal. 09:48 Counseling: I had a detailed discussion with the patient and/or guardian regarding: the kb historical points, exam findings, and any diagnostic results supporting the discharge/admit diagnosis, lab results, radiology results, the need for further work-up and treatment in the hospital. Physician consultation: Garth Smith DO was called at 09:48, message left. 10:45 Physician consultation: Garth Smith DO after a discussion of the case, a recommendation for transfer for higher level of care is made. 11:00 ED course: Transfer initiated to [facility] for continuity of care. Pt's kb retail key holder is there, Dr Candice Appiah. 11:26 ED course: Pt accepted by hospitalist at Dr Burak Fairchild. kb 08/14 06:23 Order name: Basic Metabolic Panel; Complete Time: 11:35 kb 08/14 06:23 Order name: CBC with Diff; Complete Time: 07:29 kb 08/14 06:23 Order name: LFT's; Complete Time: 11:35 kb 08/14 06:23 Order name: Magnesium; Complete Time: 11:35 kb 08/14 06:23 Order name: NT PRO-BNP; Complete Time: 11:35 kb 08/14 06:23 Order name: PT-INR; Complete Time: 07:35 kb 08/14 06:23 Order name: Troponin (emerg Dept Use Only); Complete Time: 11:35 kb 08/14 06:23 Order name: AMMONIA; Complete Time: 08:00 kb 08/14 06:50 Order name: Glucose, Ancillary Testing EDMS 08/14 08:20 Order name: Blood Culture Adult (2) kb 08/14 08:20 Order name: Lactate; Complete Time: 09:38 kb 08/14 08:20 Order name: Procalcitonin; Complete Time: 10:02 kb 08/14 10:03 Order name: UDS; Complete Time: 10:56 kb 08/14 06:23 Order name: XRAY Chest (1 view); Complete Time: 08:06 kb 08/14 06:23 Order name: EKG; Complete Time: 06:24 kb 08/14 06:23 Order name: Cardiac monitoring; Complete Time: 06:40 kb 08/14 06:23 Order name: CT Head Brain wo Cont; Complete Time: 08:35 kb 08/14 11:08 Order name: Urine Dipstick--Ancillary (enter results) bd 08/14 11:15 Order name: Phosphorus; Complete Time: 11:35 EDMS 08/14 06:23 Order name: EKG - Nurse/Tech; Complete Time: 06:40 kb 08/14 06:23 Order name: IV Saline Lock; Complete Time: 06:40 kb 08/14 06:23 Order name: Labs collected and sent; Complete Time: 06:40 kb 08/14 06:23 Order name: O2 Per Protocol; Complete Time: 06:40 kb 08/14 06:23 Order name: O2 Sat Monitoring; Complete Time: 06:40 kb 08/14 07:20 Order name: Labs - recollect needed; Complete Time: 07:29 bd 08/14 10:03 Order name: Urine Dipstick-Ancillary (obtain specimen); Complete Time: 10:45 kb Administered Medications: 06:38 Drug: hydrALAZINE 10 mg {Note: By KATIANA Gonzáles.} Route: IV; Rate: calculated rate; Site: lp1 left forearm; 07:00 Follow up: Response: No adverse reaction; Blood pressure is lowered; IV Status: jl7 Completed infusion 09:09 CANCELLED (Duplicate Order): Atarax 50 mg PO once kb 09:15 Drug: Atarax 25 mg Route: PO; jl7 10:00 Follow up: Response: No adverse reaction; No change in condition jl7 10:25 Drug: hydrALAZINE 10 mg Route: IV; Rate: calculated rate; Site: left wrist; jl7 10:30 Follow up: Response: No adverse reaction; IV Status: Completed infusion jl7 10:34 Drug: Ativan 1 mg Route: IVP; Site: right antecubital; jl7 10:36 Follow up: Response: No adverse reaction; Marked relief of symptoms jl7 10:50 Drug: Rocephin 2 grams Route: IV; Rate: calculated rate; Site: left forearm; jl7 10:56 Follow up: Response: No adverse reaction; IV Status: Completed infusion jl7 12:45 Drug: amLODIPine 10 mg Route: PO; jl7 13:27 Follow up: Response: No adverse reaction jl7 12:45 Drug: benazepril 20 mg Route: PO; jl7 13:27 Follow up: Response: No adverse reaction jl7 12:45 Drug: carvedilol 6.25 mg Route: PO; jl7 13:26 Follow up: Response: No adverse reaction jl7 12:45 Drug: HydrALAZINE 50 mg Route: PO; jl7 13:26 Follow up: Response: No adverse reaction jl7 Disposition: 15:01 Co-signature as Attending Physician, Clayton Begum MD I agree with the assessment and kdr plan of care. Disposition: 08/14/19 11:27 Transfer ordered to Other Acute Care Facility. Diagnosis are Essential (primary) hypertension, Altered mental status, unspecified. - Reason for transfer: Higher level of care. - Accepting physician is Burak. - Condition is Stable. - Problem is new. - Symptoms are unchanged. Signatures: Dispatcher [employer] EDOH Rishi Olsenistin, WIRE DRAWING MACHINE OPERATOR-C WIRE DRAWING MACHINE OPERATOR-Ckb Isabelle Chung Kevin, MD MD kdr Pena, Laura RN RN lp1 Niles Kurtz RN RN jl7 Corrections: (The following items were deleted from the chart) 09:09 09:09 Atarax 50 mg PO once ordered. kb kb 10:45 10:10 Hospitalization Ordered by Garth Smith DO for Inpatient Admission. Preliminary kb diagnosis is Altered mental status, unspecified. Bed requested for Telemetry/MedSurg (Inpatient). Status is Inpatient Admission. Condition is Stable. Problem is new. Symptoms are resolved. UTI on Admission? No. kb 11:36 10:40 PHOSPHORUS+C.LAB.BRZ ordered. [facility] 13:28 11:27 08/14/2019 11:27 Transfer ordered to Other Acute Care Facility. Diagnosis is jl7 Essential (primary) hypertension; Altered mental status, unspecified. Reason for transfer: Higher level of care. Accepting physician is Burak. Condition is Stable. Problem is new. Symptoms are unchanged. kb
[2019-08-14] MEDS ORDERED: LORazepam 2 MG/ML VIAL ONE (10:32)
[2019-08-14 10:54] LABS: Barbiturates NEGATIVE (NEGATIVE); Benzodiazepines POSITIVE (NEGATIVE); Cocaine POSITIVE (NEGATIVE); METHAMPHETAM NEGATIVE (NEGATIVE); Methadone NEGATIVE (NEGATIVE); Opiates NEGATIVE (NEGATIVE); Phencyclidine NEGATIVE (NEGATIVE); THC Cannibis NEGATIVE (NEGATIVE)
[2019-08-14 11:32] LABS: Phosphorus 8.3 mg/dL (2.5-4.9)
[2019-08-14] MEDS ORDERED: CARVEDILOL 6.25 MG TAB ONE (11:40)
[2019-08-14] MEDS ORDERED: AMLODIPINE 5 MG TAB ONE (11:41)
[2019-08-14] MEDS ORDERED: HYDRALAZINE HCL 10 MG TABLET ONE (11:41)
[2019-08-14] MEDS ORDERED: BENAZEPRIL 20 MG TAB PO ONE (12:00)
[2019-08-14 13:43] VITALS: TEMP 99
[2019-08-14 13:46] VITALS: BP 197/108; O2SAT 99
[2019-08-14 18:01] LABS: Urine Blood 1+ (NEG); Urine Glucose TRACE (NEG); Urine Protein 3+ (NEG); Urine Specific Gravity 1.015 (1.005-1.030); Urine pH 7.5 (5.0-7.0)
--- OUTSIDE RECORDS SUMMARY | 2019-08-19 00:15 | XMS REPORT ---
:1960 [facility] Address [address] [place] [address] Dr. Rodriguez [address] [place] [id number] Care Team Providers Name Role Phone Unavailable Unavailable Unavailable Problems This patient has no known problems. Allergies, Adverse Reactions, Alerts This patient has no known allergies or adverse reactions. Medications This patient has no known medications. Encounters Start End Encounter Admission Attending Care Care Encounter Date/Time Date/Time Type Type Clinicians Facility Department ID 2019-04-05 Inpatient E [facility] [id number] 20:14:00 2019-04-05 Inpatient [facility] [id number] 18:31:48 2019-08-15 2019-08-14 Inpatient [facility] [id number] 18:36:00 15:56:00
--- OUTSIDE RECORDS SUMMARY | 2019-08-19 00:15 | XMS REPORT | Summary of Care ---
:1960 Author Organization [facility] Address [address] [place] [address] Care Team Providers Name Role Phone AndrewCarina sanchezJoeEder Primary Care Provider Reason for Visit Reason Comments Evaluation kidney Encounter Details Date Type Department Care Team Description 05/23/2019 Telephone [facility] Dez Dewitt Evaluation (kidney) Transplant-[place] [facility] [address] [facility] [address] [place] [phone] Allergies No Known Allergiesdocumented as of this encounter (statuses as of 05/23/2019) Medications Medication Sig Dispensed Refills Start Date End Date Status amlodipine Take 1 tablet by 0 Active besylate/benazepril mouth 3 (three) (AMLODIPINE-BENAZEPRIL times daily. ORAL) carvedilol 6.25 mg Take 6.25 mg by 0 Active tablet mouth 2 (two) times daily with meals. furosemide (LASIX) 80 Take 80 mg by 0 Active mg tablet mouth 3 (three) times daily. hydralAZINE 50 mg Take 50 mg by 0 Active tablet mouth every 8 (eight) hours. calcium acetate 667 mg Take 2,001 mg by 0 Active capsule mouth 3 (three) times daily with meals. vitamin b Take 1 tablet by 0 Active complex-vitamin mouth daily. c-folic acid (TIM-RONAL) 0.8 mg tablet tamsulosin 0.4 mg 24 Take by mouth 0 Active hr capsule daily. zolpidem 10 mg tablet Take 10 mg by 0 Active mouth at bedtime as needed for Insomnia. diazePAM (VALIUM) 5 mg Take 5 mg by mouth 0 Active tablet at bedtime. documented as of this encounter (statuses as of 05/23/2019) Active Problems Not on filedocumented as of this encounter (statuses as of 05/23/2019) Immunizations Name Administration Dates Next Due Hep B, Adol or Pedi Dosage 08/16/2018, 05/08/2018, 04/05/2018, 03/03/2018 Influenza Virus Vaccine 06/28/2018 PPD (TB) 02/27/2018 Pneumococcal Polysaccharide, PPSV23 03/01/2018 (PNEUMOVAX) documented as of this encounter Social History Tobacco Use Types Packs/Day Years Used Date Never Assessed Sex Assigned at Date Recorded Not on file Job Start Date Occupation Industry Not on file Not on file Not on file Travel History Travel Start Travel End No recent travel history available. documented as of this encounter Last Filed Vital Signs Not on filedocumented in this encounter Plan of Treatment Health Maintenance Due Date Last Done Comments DTaP,Tdap,and Td Vaccines (1 - 1979 Tdap) COLONOSCOPY 2010 Zoster Recombinant Vaccine 2010 (SHINGRIX) (1 of 2) INFLUENZA VACCINE (#1) 2019 06/28/2018 PNEUMOCOCCAL 0-64 YEARS COMBINED Aged Out 03/01/2018 No longer eligible based on SERIES patient's age to complete this topic HEPATITIS C (HCV) SCREEN Completed 12/12/2018 documented as of this encounter Results Not on filedocumented in this encounter Insurance Payer Benefit Plan / Subscriber ID Effective Phone Address Type Group Dates MEDICARE MEDICARE PART xxxxxxxxxxx 2018-Pres [phone] Medicare A & B ent [phone] [id number] [place]OM[place] [address] COMMERCIAL COMMERCIAL [id number] 2018-Pres HMO/PPO/POS NON-CONTRACT NON-CONTRACT ent GENERIC GENERIC documented as of this encounter
--- OUTSIDE RECORDS SUMMARY | 2019-08-19 00:15 | XMS REPORT | Summary of Care ---
:1960 Author Organization [facility] Address [address] [place] [address] Care Team Providers Name Role Phone Toya Andrew Primary Care Provider Reason for Visit Reason Comments Evaluation kidney COLONOSCOPY external Encounter Details Date Type Department Care Team Description 05/23/2019 Telephone [facility] Dez Dewitt Evaluation (kidney); Transplant-[place] MD [facility] [address] [facility] (external) [address] [place] [phone] Allergies No Known Allergiesdocumented as of this [...] BOX Medicare A & B ent [id number] [place]OM[place] [phone] COMMERCIAL COMMERCIAL [id number] 2018-Pres HMO/PPO/POS NON-CONTRACT NON-CONTRACT ent GENERIC GENERIC documented as of this encounter
--- OUTSIDE RECORDS SUMMARY | 2019-08-19 00:15 | XMS REPORT | Summary of Care ---
:1960 Author Organization [facility] Address [address] [place] [address] Care Team Providers Name Role Phone Toya Andrew Primary Care Provider Reason for Visit Reason Comments Pre-Transplant Other Talk To Nurse Encounter Details Date Type Department Care Team Description 05/21/2019 Telephone [facility] Dez Dewitt Pre-Transplant; Transplant-[place] MD [facility] Other; Talk To Nurse Multispecial[facility] [address] [facility] [address] [place] [phone] Allergies No Known Allergiesdocumented as of this encounter (statuses as of 05/21/2019) Medications Medication Sig Dispensed Refills Start Date [...] as of this encounter (statuses as of 05/21/2019) Active Problems Not on filedocumented as of this encounter (statuses as of 05/21/2019) Immunizations Name Administration Dates Next Due Hep [...] 2010 (SHINGRIX) (1 of 2) INFLUENZA VACCINE 06/09/2019 06/28/2018 PNEUMOCOCCAL 0-64 YEARS COMBINED Aged Out [...] BOX Medicare A & B ent [id number] [place] TOM[place] [address] COMMERCIAL COMMERCIAL [id number] 2018-Pres HMO/PPO/POS NON-CONTRACT NON-CONTRACT ent GENERIC GENERIC documented as of this encounter
--- OUTSIDE RECORDS SUMMARY | 2019-08-19 00:16 | XMS REPORT | Summary of Care ---
:1960 Author Organization [facility] Address [address] [place] [address] Care Team Providers Name Role Phone Toya Andrew Primary Care Provider Reason for Visit (Routine) Status Reason Specialty Diagnoses / Procedures Referred By Contact Referred To Contact Closed Radiology Diagnoses Encounter for pre-transplant evaluation for kidney transplant Dez Dewitt Adc X-Ray Procedures XR CHEST 2 VW XR CHEST [address] [place] [address] [place] [phone] Encounter Details Date Type Department Care Team Description 06/17/2019 Hospital Encounter [facility] Dez Dewitt Arrived [facility] [address] [place] [address] [facility] [place] [address] [place], [place] [phone] [address] [phone] Allergies No Known Allergiesdocumented as of this encounter (statuses as of 06/18/2019) Medications Medication Sig Dispensed Refills Start Date [...] as of this encounter (statuses as of 06/18/2019) Active Problems Not on filedocumented as of this encounter (statuses as of 06/18/2019) Immunizations Name Administration Dates Next Due Hep [...] Completed 12/12/2018 documented as of this encounter Procedures Procedure Name Priority Date/Time Associated Diagnosis Comments XR CHEST 2 VW Routine 06/17/2019 2:22 PM Encounter for Results for this CDT pre-transplant procedure are in the evaluation for kidney results section. transplant documented in this encounter Results XR CHEST 2 VW (06/17/2019 2:22 PM CDT) Specimen Impressions Performed At PACS/VR/DOSE Mild cardiomegaly. Narrative Performed At * * * * * * * * ORIGINAL REPORT * * * * * * * * PACS/VR/DOSE PROCEDURE: XR CHEST 2 VW CLINICAL INDICATION: pre kidney transplant evaluation Alex Cagle is a 58 year old male with history of ESRD and for pre kidney transplant evaluation. Please do chest xr pa lat COMPARISON: None FINDINGS: The lungs are clear. No pleural effusion or pneumothorax is seen. The heart is mildly enlarged. No acute bony abnormality. Procedure Note [facility], Radiant Results Inft User - 06/17/2019 2:34 PM CDT * * * * * * * * ORIGINAL REPORT * * * * * * * * PROCEDURE: XR CHEST 2 VW CLINICAL INDICATION: pre kidney transplant evaluation Alex Cagle is a 58 year old male with history of ESRD and for pre kidney transplant evaluation. Please do chest xr pa lat COMPARISON: None FINDINGS: The lungs are clear. No pleural effusion or pneumothorax is seen. The heart is mildly enlarged. No acute bony abnormality. IMPRESSION Mild cardiomegaly. Performing Organization Address City/State/Zipcode Phone Number PACS/VR/DOSE documented in this encounter Visit Diagnoses Diagnosis Encounter for pre-transplant evaluation for kidney transplant documented in this encounter Insurance Payer Benefit Plan / Subscriber ID Effective Phone Address Type Group Dates MEDICARE MEDICARE PART xxxxxxxxxxx 2018-Pres [phone] Medicare A & B ent [id number] [place] [phone] COMMERCIAL COMMERCIAL [id number] 2018-Pres HMO/PPO/POS NON-CONTRACT NON-CONTRACT ent GENERIC GENERIC documented as of this encounter
--- OUTSIDE RECORDS SUMMARY | 2019-08-19 00:16 | XMS REPORT | Summary of Care ---
:1960 Author Organization [facility] Address [address] [place] [address] Care Team Providers Name Role Phone Toya Andrew Primary Care Provider Reason for Visit Reason Comments Evaluation kidney COLONOSCOPY external Encounter Details Date Type Department Care Team Description 05/23/2019 Telephone [facility] Dez Dewitt Evaluation (kidney); Transplant-[place] [facility] [address] [facility] (external) 26[address] [place] [phone] Allergies No Known Allergiesdocumented as of this encounter (statuses as of 05/24/2019) Medications Medication Sig Dispensed Refills Start Date [...] as of this encounter (statuses as of 05/24/2019) Active Problems Not on filedocumented as of this encounter (statuses as of 05/24/2019) Immunizations Name Administration Dates Next Due Hep [...] filedocumented in this encounter Plan of Treatment Name Type Priority Associated Diagnoses Order Schedule XR CHEST 2 VW IMAGING Routine Encounter for pre-transplant Expected: 2018, evaluation for kidney Expires: 05/24/2020 transplant Health Maintenance Due Date Last Done Comments [...] Results Not on filedocumented in this encounter Visit Diagnoses Diagnosis Encounter for pre-transplant evaluation for kidney transplant - Primary documented in this encounter Insurance Payer Benefit Plan / Subscriber ID Effective Phone Address Type Group Dates MEDICARE MEDICARE PART xxxxxxxxxxx 2018-Pres [phone] Medicare A & B ent [phone] [id number] [place] [id number] COMMERCIAL COMMERCIAL [id number] 2018-Pres HMO/PPO/POS NON-CONTRACT NON-CONTRACT ent GENERIC GENERIC documented as of this encounter
--- OUTSIDE RECORDS SUMMARY | 2019-08-19 00:16 | XMS REPORT | Summary of Care ---
:1960 Author Organization [facility] Address [address] [place] [address] Care Team Providers Name Role Phone Toya Andrew Primary Care Provider Reason for Referral Radiology Services ([facility]) Status Reason Specialty Diagnoses / Referred By Referred To Procedures Contact Contact New Request Diagnostic Diagnoses Pre-transplant evaluation for kidney transplant Esdras, Radiology Procedures NM MYOCARDIUM PERFUSION STRESS AND REST Dez Clayton MD [address] [place] [address] ([place]) Status Reason Specialty Diagnoses / Referred By Referred To Procedures Contact Contact New Request Cardiology Diagnoses Pre-transplant evaluation for kidney transplant Dez Dewitt Procedures ECHO ROUTINE W/DOPPLER COLOR Preferred Location: [place] ([facility]) (or first available) MD [facility] [address] [place] [address] Reason for Visit Reason Comments Transplant Selection Committee Encounter Details Date Type Department Care Team Description 06/20/2019 Telephone [facility] Dez Dewitt Transplant Selection Transplant-[place] [facility] [address] [place] [phone] [phone] Allergies No Known Allergiesdocumented as of this encounter (statuses as of 06/20/2019) Medications Medication Sig Dispensed Refills Start Date [...] as of this encounter (statuses as of 06/20/2019) Active Problems Not on filedocumented as of this encounter (statuses as of 06/20/2019) Immunizations Name Administration Dates Next Due Hep [...] Name Type Priority Associated Diagnoses Order Schedule NM MYOCARDIUM PERFUSION IMAGING [facility] Pre-transplant Expected: 06/20/2019, STRESS AND REST evaluation for kidney Expires: 07/20/2020 transplant Health Maintenance Due Date Last Done [...] filedocumented in this encounter Visit Diagnoses Diagnosis Pre-transplant evaluation for kidney transplant - Primary documented in this encounter Insurance Payer Benefit Plan / Subscriber ID Effective Phone Address Type Group Dates MEDICARE MEDICARE PART xxxxxxxxxxx 2018-Pres [phone] Medicare A & B ent [phone] [id number] [place] [phone] COMMERCIAL COMMERCIAL [id number] 2018-Pres HMO/PPO/POS NON-CONTRACT NON-CONTRACT ent GENERIC GENERIC documented as of this encounter
--- OUTSIDE RECORDS SUMMARY | 2019-08-19 00:16 | XMS REPORT | Summary of Care ---
:1960 Author Organization [facility] Address [address] [place] [address] Care Team Providers Name Role Phone Toya Andrew Primary Care Provider Encounter Details Date Type Department Care Team Description 05/09/2019 Orders Only [facility] Doctor Unassigned, No [address] [facility] [place] [address] [address] [place] [address] Allergies No Known Allergiesdocumented as of this [...] Procedure Name Priority Date/Time Associated Diagnosis Comments TRANSPLANT/EXT PROVIDER Routine 05/09/2019 12:01 AM CDT PROCEDURE documented in this encounter Results Not on filedocumented in this encounter Insurance Payer Benefit Plan / Subscriber ID Effective Phone Address Type Group Dates MEDICARE MEDICARE PART xxxxxxxxxxx 2018-Pres [phone] [address] Medicare A & B ent [phone] [id number] [place] [id number] COMMERCIAL COMMERCIAL [id number] 2018-Pres HMO/PPO/POS NON-CONTRACT NON-CONTRACT ent GENERIC GENERIC documented as of this encounter
--- OUTSIDE RECORDS SUMMARY | 2019-08-19 00:16 | XMS REPORT | Summary of Care ---
:1960 Author Organization [facility] Address [address] [place] [address] Care Team Providers Name Role Phone Toya Andrew Primary Care Provider Reason for Visit Reason Comments Other Encounter Details Date Type Department Care Team Description 06/17/2019 Telephone [facility] Transplant- Dez Dewitt MD Other [place] [facility] [address] [facility] [place], [place] [address] [address] [facility] [phone] [place] [address] [phone] Allergies No Known Allergiesdocumented as of this encounter (statuses as of 06/17/2019) Medications Medication Sig Dispensed Refills Start Date [...] as of this encounter (statuses as of 06/17/2019) Active Problems Not on filedocumented as of this encounter (statuses as of 06/17/2019) Immunizations Name Administration Dates Next Due Hep [...] BOX Medicare A & B ent [id number] [place] [address] COMMERCIAL COMMERCIAL [id number] 2018-Pres HMO/PPO/POS NON-CONTRACT NON-CONTRACT ent GENERIC GENERIC documented as of this encounter
--- OUTSIDE RECORDS SUMMARY | 2019-08-19 00:16 | XMS REPORT | Summary of Care ---
:1960 Author Organization [facility] Address [address] [place] [address] Care Team Providers Name Role Phone Toya Andrew Primary Care Provider Encounter Details Date Type Department Care Team Description 06/17/2019 Orders Only [facility] Doctor Unassigned, No 301 [facility] [place] [address] [address] [place] [address] Allergies No Known Allergiesdocumented as of this [...] filedocumented in this encounter Plan of Treatment Date Type Specialty Care Team Description 06/17/2019 Appointment Radiology Dez Dewitt MD [facility] [place], [place] [phone] Health Maintenance Due Date Last Done Comments [...] Procedure Name Priority Date/Time Associated Diagnosis Comments [facility] PATIENT FINANCIAL Routine 06/17/2019 2:01 PM POLICY CDT NO SHOW OR MISSED Routine 06/17/2019 2:01 PM APPOINTMENT POLICY CDT ACKNOWLEDGEMENT documented in this encounter Results Not on filedocumented in this encounter Insurance Payer Benefit Plan / Subscriber ID Effective Phone Address Type Group Dates MEDICARE MEDICARE PART xxxxxxxxxxx 2018-Pres [phone] [address] Medicare A & B ent [id number] [place] TOM[place] [id number] COMMERCIAL COMMERCIAL [id number] 2018-Pres HMO/PPO/POS NON-CONTRACT NON-CONTRACT ent GENERIC GENERIC documented as of this encounter
== END 2019-08-14 13:28 ==
LOC: ER 06:05
DX: I13.2 Hypertensive heart and chronic kidney disease with heart failure and with stage 5 chronic kidney disease, or end stage renal disease (principal); E11.22 Type 2 diabetes mellitus with diabetic chronic kidney disease; N18.6 End stage renal disease; I50.9 Heart failure, unspecified; Z99.2 Dependence on renal dialysis
CPT/HCPCS: 93005; 87040 ×2; 85025; 80048; 36415; 82140; 83735; 84100; 85610; 82947; 80076; 80307 ×8; 83605; 81003; 84484; 84145; 83880; 70450; 71045; 51702; 99285; J0360 ×2; J0696; 96365; 96375

== ENCOUNTER 2020-11-21 12:04 | Emergency (ER) | payer OTHER ==
[2020-11-21] MEDS ORDERED: LIDOCAINE 1% W/EPI 1:100,000 MDV 20 ML VIAL ONE (13:12)
[2020-11-21] MEDS ORDERED: MUPIROCIN 2% OINT 22GM TUBE TOP ONE (13:12)
[2020-11-21] MEDS ORDERED: DOXYCYCLINE 100 MG CAP PO ONE (13:12)
[2020-11-21] MEDS ORDERED: SMZ./TMP. 800/160 MG TABLET ONE (13:12)
--- NOTE | 2020-11-21 13:29 | EDPHYS ---
Physician Documentation [facility] Name: Alex Cagle Age: 60 yrs Sex: Male : 1960 Arrival Date: 11/21/2020 Time: 12:06 Bed 6 Private MD: Ambrocio Burgos HPI: 11/21 12:52 This 60 yrs old Male presents to ER via Wheelchair with complaints of Insect jarrell Bite-Facial Swelling. 12:52 The patient presents with an abscess of the right jaw. Description: The affected area jarrell is moderate sized, localized, draining. Onset: The symptoms/episode began/occurred 3 day(s) ago. Possible cause(s): unknown. Associated signs and symptoms: The patient has no apparent associated signs or symptoms. Modifying factors: the symptoms are alleviated by nothing, the symptoms are aggravated by pressure, squeezing the lesion and expressing the contents, touching. Historical: - Allergies: 12:20 NKA; ll1 - PMHx: 12:20 CHF; Diabetes - NIDDM; ESRD; Hypertension; insomnia; ll1 - PSHx: 12:20 Shoulder surgery; dialysis ports; ll1 - Immunization history:: Flu vaccine is up to date. - Social history:: Smoking status: Patient denies any tobacco usage or history of. - Family history:: not pertinent. ROS: 12:52 Constitutional: Negative for fever, chills, and weight loss, Eyes: Negative for injury, jarrell pain, redness, and discharge, ENT: Negative for injury, pain, and discharge, Neck: Negative for injury, pain, and swelling, Cardiovascular: Negative for chest pain, palpitations, and edema, Respiratory: Negative for shortness of breath, cough, wheezing, and pleuritic chest pain, Abdomen/GI: Negative for abdominal pain, nausea, vomiting, diarrhea, and constipation, Back: Negative for injury and pain, : Negative for injury, bleeding, discharge, and swelling, MS/Extremity: Negative for injury and deformity, Neuro: Negative for headache, weakness, numbness, tingling, and seizure, Psych: Negative for depression, anxiety, suicide ideation, homicidal ideation, and hallucinations, Allergy/Immunology: Negative for hives, rash, and allergies, Endocrine: Negative for neck swelling, polydipsia, polyuria, polyphagia, and marked weight changes, Hematologic/Lymphatic: Negative for swollen nodes, abnormal bleeding, and unusual bruising. 12:52 Skin: Positive for abscess, swelling, of the right cheek and right jaw. Exam: 12:52 Constitutional: This is a well developed, well nourished patient who is awake, alert, jarrell and in no acute distress. Head/Face: Normocephalic, atraumatic. Eyes: Pupils equal round and reactive to light, extra-ocular motions intact. Lids and lashes normal. Conjunctiva and sclera are non-icteric and not injected. Cornea within normal limits. Periorbital areas with no swelling, redness, or edema. ENT: Nares patent. No nasal discharge, no septal abnormalities noted. Tympanic membranes are normal and external auditory canals are clear. Oropharynx with no redness, swelling, or masses, exudates, or evidence of obstruction, uvula midline. Mucous membranes moist. Neck: Trachea midline, no thyromegaly or masses palpated, and no cervical lymphadenopathy. Supple, full range of motion without nuchal rigidity, or vertebral point tenderness. No Meningismus. Chest/axilla: Normal chest wall appearance and motion. Nontender with no deformity. No lesions are appreciated. Cardiovascular: Regular rate and rhythm with a normal S1 and S2. No gallops, murmurs, or rubs. Normal PMI, no JVD. No pulse deficits. Respiratory: Lungs have equal breath sounds bilaterally, clear to auscultation and percussion. No rales, rhonchi or wheezes noted. No increased work of breathing, no retractions or nasal flaring. Abdomen/GI: Soft, non-tender, with normal bowel sounds. No distension or tympany. No guarding or rebound. No evidence of tenderness throughout. Back: No spinal tenderness. No costovertebral tenderness. Full range of motion. Male : Normal genitalia with no discharge or lesions. MS/ Extremity: Pulses equal, no cyanosis. Neurovascular intact. Full, normal range of motion. Neuro: Awake and alert, GCS 15, oriented to person, place, time, and situation. Cranial nerves II-XII grossly intact. Motor strength 5/5 in all extremities. Sensory grossly intact. Cerebellar exam normal. Normal gait. Psych: Awake, alert, with orientation to person, place and time. Behavior, mood, and affect are within normal limits. 12:52 Skin: abscess, that is small, that is moderate sized, of the right cheek and face and right jaw, cellulitis, that is minimal, induration, that is moderate is noted, lesion(s), noted, and can be described as erythematous, raised, tender. Vital Signs: 12:20 BP 145 / 85; Pulse 74; Resp 17; Temp 98.9; Pulse Ox 98% ; Weight 91.63 kg; Height 5 ft. ll1 7 in. (170.18 cm); Pain 10/10; 12:20 Body Mass Index 31.64 (91.63 kg, 170.18 cm) ll1 Procedures: 12:55 I \T\ D: Incision and drainage was performed for an abscess of the right Prepped with [facility] Betadine, Anesthetized with 10 ml's 1% Lidocaine w/ Epi. Incised with #11 blade. 12:55 I \T\ D: Drained small amount Packed with iodoform gauze, Dressing: non-Adherent [facility] dressing, the patient tolerated the procedure well. MDM: 12:43 Patient medically screened. [facility] 12:54 Differential diagnosis: abscess, cellulitis. Data reviewed: vital signs, nurses notes. [facility] Data interpreted: cardiac monitor:. Counseling: I had a detailed discussion with the patient and/or guardian regarding: the historical points, exam findings, and any diagnostic results supporting the discharge/admit diagnosis, lab results. 11/21 12:51 Order name: Wound Culture [facility] 11/21 12:52 Order name: Wound Culture [facility] 11/21 12:51 Order name: Dressing - Wound; Complete Time: 14:18 [facility] 11/21 12:51 Order name: Gloves, Sterile; Complete Time: 12:54 [facility] 11/21 12:51 Order name: Setup Suture Tray; Complete Time: 12:54 [facility] Administered Medications: 13:50 Drug: Lidocaine-Epinephrine -1%: (1:100,000) 5 ml {Note: givent o Dr Alonso for sv procedure.} Volume: 20 ml; Route: Infiltration; 14:22 Drug: Bactroban Ointment 2 % 1 application Route: Topical; Site: affected area; sv 14:23 Drug: Bactrim (160 mg-800 mg (DS) 1 tablet Route: PO; sv 14:24 Follow up: Response: Medication administered at discharge. sv 14:23 Drug: Doxycycline 100 mg Route: PO; sv 14:24 Follow up: Response: Medication administered at discharge. sv Disposition: 11/21/20 13:29 Discharged to Home. Impression: End stage renal disease, Cutaneous abscess of face. - Condition is Stable. - Discharge Instructions: Skin Abscess, Incision and Drainage, Skin Abscess, Tzer-iw-Ewkd, Dialysis, Incision and Drainage, Care After. - Prescriptions for Tylenol- Codeine #3 300-30 mg Oral Tablet - take 2 tablets by ORAL route every 6 hours As needed; 20 tablet. Doxycycline Hyclate 100 mg Oral Tablet - take 1 tablet by ORAL route every 12 hours; 20 tablet. Bactrim DS 800- 160 mg Oral Tablet - take 1 tablet by ORAL route every 12 hours for 10 days; 20 tablet. - Medication Reconciliation Form, Thank You Letter, Antibiotic Education, Prescription Opioid Use, Work release form form. - Follow up: Private Physician; When: 2 - 3 days; Reason: Recheck today's complaints, Continuance of care, Re-evaluation by your physician. Follow up: Ruben Roberts; When: 2 - 3 days; Reason: Recheck today's complaints, Re-evaluation by your physician. - Problem is new. - Symptoms have improved. Signatures: Dispatcher [employer] EDTerri Ortega RN RN Ambrocio Marquez MD MD cha Lewis, Lynsay, RN RN ll1 Corrections: (The following items were deleted from the chart) 14:25 13:29 11/21/2020 13:29 Discharged to Home. Impression: End stage renal disease; sv Cutaneous abscess of face. Condition is Stable. Discharge Instructions: Skin Abscess, Incision and Drainage, Skin Abscess, Qits-er-Adyp, Dialysis, Incision and Drainage, Care After. Prescriptions for Tylenol-Codeine #3 300-30 mg Oral Tablet - take 2 tablets by ORAL route every 6 hours As needed; 20 tablet, Doxycycline Hyclate 100 mg Oral Tablet - take 1 tablet by ORAL route every 12 hours; 20 tablet, Bactrim DS 800-160 mg Oral Tablet - take 1 tablet by ORAL route every 12 hours for 10 days; 20 tablet. and Forms are Medication Reconciliation Form, Thank You Letter, Antibiotic Education, Prescription Opioid Use. Follow up: Private Physician; When: 2 - 3 days; Reason: Recheck today's complaints, Continuance of care, Re-evaluation by your physician. Follow up: Ruben Roberts; When: 2 - 3 days; Reason: Recheck today's complaints, Re-evaluation by your physician. Problem is new. Symptoms have improved. jarrell
--- NOTE | 2020-11-21 13:29 | ER ---
Nurse's Notes [facility] Name: Alex Cagle Age: 60 yrs Sex: Male : 1960 Arrival Date: 11/21/2020 Time: 12:06 Bed 6 Private MD: Diagnosis: End stage renal disease;Cutaneous abscess of face Presentation: 11/21 12:20 Chief complaint: Patient states: 1. R cheek pain and swelling since , getting ll1 worse today. tried to pop it with a needle. No fever. 2. Cough for 2 days. Coronavirus screen: Client denies travel out of the [place] in the last 14 days. cough unrelated to allergies, Client presents with at least one sign or symptom that may indicate coronavirus-19. Standard/surgical mask placed on the client. Ebola Screen: Patient denies travel to an Ebola-affected area in the 21 days before illness onset. Initial Sepsis Screen: Does the patient meet any 2 criteria? No. Patient's initial sepsis screen is negative. Does the patient have a suspected source of infection? Yes: Skin breakdown/wound. Risk Assessment: Do you want to hurt yourself or someone else? Patient reports no desire to harm self or others. Onset of symptoms was November 19, 2020. 12:20 Method Of Arrival: Wheelchair ll1 12:20 Acuity: DEJAN 4 ll1 Historical: - Allergies: 12:20 NKA; ll1 - PMHx: 12:20 CHF; Diabetes - NIDDM; ESRD; Hypertension; insomnia; ll1 - PSHx: 12:20 Shoulder surgery; dialysis ports; ll1 - Immunization history:: Flu vaccine is up to date. - Social history:: Smoking status: Patient denies any tobacco usage or history of. - Family history:: not pertinent. Screenin:32 Abuse screen: Denies threats or abuse. Denies injuries from another. Nutritional sv screening: No deficits noted. Tuberculosis screening: No symptoms or risk factors identified. Fall Risk None identified. Assessment: 13:06 General: Appears in no apparent distress. uncomfortable, well groomed, well developed, sv Behavior is calm, cooperative, appropriate for age. Pain: Complains of pain in right cheek and right jaw Pain currently is 10 out of 10 on a pain scale. Neuro: Level of Consciousness is awake, alert, obeys commands, Oriented to person, place, time, situation, Moves all extremities. Gait is steady, Speech is normal. Respiratory: Respiratory effort is even, unlabored, Respiratory pattern is regular, symmetrical. Derm: Skin is pink, warm \T\ dry. Derm: Abscess located on right cheek and right jaw has no drainage, is hot to touch, is red, is raised. Musculoskeletal: Swelling present in right cheek and right jaw. 14:25 Reassessment: Patient appears in no apparent distress at this time. No changes from previously documented assessment. Patient and/or family updated on plan of care and expected duration. Pain level reassessed. Patient is alert, oriented x 3, equal unlabored respirations, skin warm/dry/pink. Vital Signs: 12:20 BP 145 / 85; Pulse 74; Resp 17; Temp 98.9; Pulse Ox 98% ; Weight 91.63 kg; Height 5 ft. ll1 7 in. (170.18 cm); Pain 10/10; 12:20 Body Mass Index 31.64 (91.63 kg, 170.18 cm) ll1 ED Course: 12:06 Patient arrived in ED. ds1 12:19 Arm band placed on Patient placed in an exam room, on a stretcher. ll1 12:22 Triage completed. ll1 12:23 Terri Hilario, KATIANA is Primary Nurse. sv 12:32 Patient has correct armband on for positive identification. Bed in low position. Call sv light in reach. Door closed. Head of bed elevated. 12:42 Ambrocio Alonso MD is Attending Physician. jarrell 13:05 Assist provider with I \T\ D: Set up I\T\D tray. sv 13:07 Awaiting ED provider evaluation. sv 13:29 Ruben Roberts MD is Referral Physician. jarrell 13:50 Assist provider with I \T\ D: of an abscess on right cheek Performed by Ambrocio Alonso MD sv Culture sent to lab. Wound packed. iodoform gauze, Dressing with 4X4s, tape Patient tolerated well. Patient did not have IV access during this emergency room visit. 14:15 Dressings: dressed wound with non-adherent gauze and a Tegaderm. dh3 14:24 Wound Culture Sent. sv Administered Medications: 13:50 Drug: Lidocaine-Epinephrine -1%: (1:100,000) 5 ml {Note: givent o Dr Alonso for sv procedure.} Volume: 20 ml; Route: Infiltration; 14:22 Drug: Bactroban Ointment 2 % 1 application Route: Topical; Site: affected area; sv 14:23 Drug: Bactrim (160 mg-800 mg (DS) 1 tablet Route: PO; sv 14:24 Follow up: Response: Medication administered at discharge. sv 14:23 Drug: Doxycycline 100 mg Route: PO; sv 14:24 Follow up: Response: Medication administered at discharge. sv Outcome: 13:29 Discharge ordered by . [facility] 14:25 Discharged to home ambulatory. sv 14:25 Condition: stable 14:25 Discharge instructions given to patient, Instructed on discharge instructions, follow up and referral plans. no drinking with medication, no driving heavy equipment, medication usage, wound care, Demonstrated understanding of instructions, follow-up care, medications, wound care, Prescriptions given X 3. 14:25 Patient left the ED. sv Signatures: Terri Hilario RN RN Ambrocio Alonso MD MD cha Sanford, Demi ds1 Daphne Zaragoza RN RN Klarissa Archibald 3 Jose Ansari RN RN ll1 Corrections: (The following items were deleted from the chart) 12:26 12:20 Coronavirus screen: Client denies travel out of the [place] in the last 14 days. hb cough unrelated to allergies, At this time, the client does not indicate any symptoms associated with coronavirus-19. ll1
[2020-11-21 14:31] VITALS: BP 145/85; TEMP 98.9; O2SAT 98
== END 2020-11-21 14:25 | disposition home or self-care (01) ==
LOC: ER 12:04
PROC: 0J910ZZ Drainage of Face Subcutaneous Tissue and Fascia, Open Approach (ICD-10-PCS; principal; 2020-11-21)
DX: L02.01 Cutaneous abscess of face (principal); E11.22 Type 2 diabetes mellitus with diabetic chronic kidney disease; I13.2 Hypertensive heart and chronic kidney disease with heart failure and with stage 5 chronic kidney disease, or end stage renal disease; I50.9 Heart failure, unspecified; N18.6 End stage renal disease; Z99.2 Dependence on renal dialysis
CPT/HCPCS: 87070; 87077; 87186; 87205; 99284

== ENCOUNTER 2020-11-24 16:10 | Emergency (ER) | payer OTHER ==
[2020-11-24 17:43] LABS: Basophils % 0.5 % (0-1.3); Hematocrit 35.2 % (39.6-49.0); Lymphocytes % 10.8 % (15.3-44.8); MPV 7.9 fL (7.6-11.3); RBC Red Blood Cell Count 4.16 M/uL (4.33-5.43)
[2020-11-24 18:27] LABS: Albumin 3.7 g/dL (3.4-5.0); Bilirubin Total 0.3 mg/dL (0.2-1.0); Potassium 5.1 mmol/L (3.5-5.1); Protein, Total 7.2 g/dL (6.4-8.2); Troponin (Emerg Dept Use Only) 0.02 ng/mL (0.0-0.045)
[2020-11-24] MEDS ORDERED: LIDOCAINE 1% W/EPI 1:100,000 MDV 20 ML VIAL ONE (18:33)
--- NOTE | 2020-11-24 19:02 | EDPHYS ---
Physician Documentation [facility] Name: Alex Cagle Age: 60 yrs Sex: Male : 1960 Arrival Date: 11/24/2020 Time: 16:16 Bed 12 Private MD: Ambrocio Burgos HPI: 11/24 17:32 This 60 yrs old Male presents to ER via Ambulatory with complaints of Facial jarrell Swelling. 17:32 The patient presents with an abscess of the right cheek and right jaw, the patient jarrell presents with a swollen area of the right cheek and right jaw. Onset: The symptoms/episode began/occurred 5 day(s) ago. Possible cause(s): facial abscess, drained 1 week ago. Associated signs and symptoms: Pertinent positives: erythema, swelling. Onset: The symptoms/episode began/occurred 1 week(s) ago. Associated signs and symptoms: Pertinent positives: nausea. last dialysis Monday, incisio and drainage 1 week ago , on abx, more facial swelling. Historical: - Allergies: 16:27 NKA; jd3 - Home Meds: 16:27 acetaminophen-codeine 300-30 mg Oral tab every 6 hours [Active]; amlodipine-benazepril jd3 10-20 mg Oral cap three times a day [Active]; furosemide 80 mg Oral tab 1 tab 3 times per day [Active]; hydralazine 50 mg Oral tab three times a day [Active]; hydroxyzine HCl 25 mg Oral tab 3 times per day [Active]; Fauzia-Conor 0.8 mg Oral tab daily [Active]; tamsulosin 0.4 mg Oral cp24 1 cap once daily [Active]; carvedilol 6.25 mg Oral tab 2 times per day [Active]; - PMHx: 16:27 Diabetes - NIDDM; Hypertension; ESRD; CHF; insomnia; jd3 - PSHx: 16:27 Shoulder surgery; dialysis ports; jd3 - Immunization history:: Adult Immunizations up to date. - Social history:: Smoking status: Patient denies any tobacco usage or history of. - Family history:: not pertinent. ROS: 17:32 Constitutional: Negative for fever, chills, and weight loss, Eyes: Negative for injury, jarrell pain, redness, and discharge, Neck: Negative for injury, pain, and swelling, Cardiovascular: Negative for chest pain, palpitations, and edema, Respiratory: Negative for shortness of breath, cough, wheezing, and pleuritic chest pain, Abdomen/GI: Negative for abdominal pain, nausea, vomiting, diarrhea, and constipation, Back: Negative for injury and pain, : Negative for injury, bleeding, discharge, and swelling, MS/Extremity: Negative for injury and deformity, Psych: Negative for depression, anxiety, suicide ideation, homicidal ideation, and hallucinations, Allergy/Immunology: Negative for hives, rash, and allergies, Endocrine: Negative for neck swelling, polydipsia, polyuria, polyphagia, and marked weight changes. 17:32 ENT: Positive for of the right cheek and right jaw. Exam: 17:32 Constitutional: This is a well developed, well nourished patient who is awake, alert, jarrell and in no acute distress. Eyes: Pupils equal round and reactive to light, extra-ocular motions intact. Lids and lashes normal. Conjunctiva and sclera are non-icteric and not injected. Cornea within normal limits. Periorbital areas with no swelling, redness, or edema. ENT: Nares patent. No nasal discharge, no septal abnormalities noted. Tympanic membranes are normal and external auditory canals are clear. Oropharynx with no redness, swelling, or masses, exudates, or evidence of obstruction, uvula midline. Mucous membranes moist. Neck: Trachea midline, no thyromegaly or masses palpated, and no cervical lymphadenopathy. Supple, full range of motion without nuchal rigidity, or vertebral point tenderness. No Meningismus. Chest/axilla: Normal chest wall appearance and motion. Nontender with no deformity. No lesions are appreciated. Cardiovascular: Regular rate and rhythm with a normal S1 and S2. No gallops, murmurs, or rubs. Normal PMI, no JVD. No pulse deficits. Respiratory: Lungs have equal breath sounds bilaterally, clear to auscultation and percussion. No rales, rhonchi or wheezes noted. No increased work of breathing, no retractions or nasal flaring. Abdomen/GI: Soft, non-tender, with normal bowel sounds. No distension or tympany. No guarding or rebound. No evidence of tenderness throughout. Back: No spinal tenderness. No costovertebral tenderness. Full range of motion. MS/ Extremity: Pulses equal, no cyanosis. Neurovascular intact. Full, normal range of motion. Neuro: Awake and alert, GCS 15, oriented to person, place, time, and situation. Cranial nerves II-XII grossly intact. Motor strength 5/5 in all extremities. Sensory grossly intact. Cerebellar exam normal. Normal gait. Psych: Awake, alert, with orientation to person, place and time. Behavior, mood, and affect are within normal limits. 17:32 Skin: abscess, that is moderate sized, cellulitis, that is mild, on the right cheek. Vital Signs: 16:28 BP 151 / 79; Pulse 66; Resp 17 S; Temp 98.7(TE); Pulse Ox 98% on R/A; Weight 90.72 kg jd3 (R); Height 5 ft. 7 in. (170.18 cm) (R); Pain 10/10; 16:28 Body Mass Index 31.32 (90.72 kg, 170.18 cm) jd3 Procedures: 18:50 I \T\ D: Incision and drainage was performed for an abscess of the right Prepped with [facility] Betadine, Anesthetized with 6 ml's 1% Lidocaine w/ Epi. Incised with #11 blade. Drained small amount serosanguinous fluid. Packed with iodoform gauze, Dressing: non-Adherent dressing, petroleum dressing. MDM: 16:38 Patient medically screened. [facility] 17:39 Differential diagnosis: cellulitis, hyperglycemia. Differential Diagnosis altered [facility] mental status. Data reviewed: vital signs, nurses notes, lab test result(s), CBC, electrolytes, hepatic panel, EKG, radiologic studies. Data interpreted: monitor technician: rate is 66 beats/min, rhythm is regular. Test interpretation: by ED physician or midlevel provider: ECG, plain radiologic studies. Counseling: I had a detailed discussion with the patient and/or guardian regarding: the historical points, exam findings, and any diagnostic results supporting the discharge/admit diagnosis, lab results, radiology results, the need for outpatient follow up, for definitive care, an ENT specialist, security compliance engineer. 11/24 16:49 Order name: Troponin (emerg Dept Use Only) [facility] 11/24 16:49 Order name: CBC with Diff; Complete Time: 18:08 [facility] 11/24 16:49 Order name: Chest Single View XRAY [facility] 11/24 16:49 Order name: Comprehensive Metabolic Panel; Complete Time: 18:31 [facility] 11/24 16:49 Order name: Troponin (Emerg Dept Use Only); Complete Time: 18:31 EDMS 11/24 17:15 Order name: AMMONIA; Complete Time: 18:23 [facility] 11/24 16:49 Order name: EKG; Complete Time: 16:49 [facility] 11/24 16:49 Order name: EKG - Nurse/Tech [facility] 11/24 16:49 Order name: CT Facial Bones W/O Con [facility] 11/24 16:49 Order name: IV Saline Lock - Large Bore [facility] 11/24 17:15 Order name: CT Head Brain wo Cont [facility] 11/24 18:10 Order name: Dressing - Wound; Complete Time: 19:12 [facility] 11/24 18:10 Order name: Gloves, Sterile; Complete Time: 19:12 [facility] 11/24 18:10 Order name: Setup Suture Tray; Complete Time: 19:12 [facility] 11/24 18:31 Order name: PO challenge; Complete Time: 19:39 [facility] Administered Medications: 19:25 Drug: Bactroban Ointment 2 % 1 application Route: Topical; Site: affected area; iw 19:39 Not Given (Patient Refused): D50W 25 ml IVP once; (0.5 amp) iw Disposition: 11/24/20 19:01 Discharged to Home. Impression: Cutaneous abscess of face, Type 2 diabetes mellitus, End stage renal disease - on HD, Hypoglycemia, unspecified. - Condition is Stable. - Discharge Instructions: Skin Abscess, Hypoglycemia, Incision and Drainage, Skin Abscess, [id number], Dialysis, Blood Glucose Monitoring, Adult, End-Stage Kidney Disease, Hemodialysis, Dialysis Diet. - Prescriptions for Bactroban 2 % Topical Ointment - Apply to affected area 1 application by TOPICAL route every 12 hours; 15 gram. Doxycycline Hyclate 100 mg Oral Tablet - take 1 tablet by ORAL route every 12 hours; 20 tablet. Bactrim DS 800- 160 mg Oral Tablet - take 1 tablet by ORAL route every 12 hours for 10 days; 20 tablet. - Medication Reconciliation Form, Thank You Letter, Antibiotic Education, Prescription Opioid Use form. - Follow up: Private Physician; When: Tomorrow; Reason: Recheck today's complaints, Continuance of care, Re-evaluation by your physician. Follow up: Constantin Ellison; When: Tomorrow; Reason: Recheck today's complaints, Continuance of care, Re-evaluation by your physician. Follow up: Terri Archibald; When: 2 - 3 days; Reason: Recheck today's complaints, Re-evaluation by your physician. - Problem is new. - Symptoms have improved. Signatures: Dispatcher [employer] Ambrocio Birch MD MD cha Williams, Irene, RN RN iw Davies, Jonathon, RN RN jd3 Corrections: (The following items were deleted from the chart) 19:39 19:01 11/24/2020 19:01 Discharged to Home. Impression: Cutaneous abscess of face; Type iw 2 diabetes mellitus; End stage renal disease - on HD; Hypoglycemia, unspecified. Condition is Stable. Discharge Instructions: Skin Abscess, Hypoglycemia, Incision and Drainage, Skin Abscess, [id number], Dialysis, Blood Glucose Monitoring, Adult, End-Stage Kidney Disease, Hemodialysis, Dialysis Diet. Prescriptions for Bactroban 2 % Topical Ointment - Apply to affected area 1 application by TOPICAL route every 12 hours; 15 gram, Doxycycline Hyclate 100 mg Oral Tablet - take 1 tablet by ORAL route every 12 hours; 20 tablet, Bactrim DS 800-160 mg Oral Tablet - take 1 tablet by ORAL route every 12 hours for 10 days; 20 tablet. and Forms are Medication Reconciliation Form, Thank You Letter, Antibiotic Education, Prescription Opioid Use. Follow up: Private Physician; When: Tomorrow; Reason: Recheck today's complaints, Continuance of care, Re-evaluation by your physician. Follow up: Constantin Ellison; When: Tomorrow; Reason: Recheck today's complaints, Continuance of care, Re-evaluation by your physician. Follow up: Terri Archibald; When: 2 - 3 days; Reason: Recheck today's complaints, Re-evaluation by your physician. Problem is new. Symptoms have improved. jarrell
--- NOTE | 2020-11-24 19:02 | ER ---
Nurse's Notes [facility] Name: Alex Cagle Age: 60 yrs Sex: Male : 1960 Arrival Date: 11/24/2020 Time: 16:16 Bed 12 Private MD: Diagnosis: Cutaneous abscess of face;Type 2 diabetes mellitus;End stage renal disease-on HD;Hypoglycemia, unspecified Presentation: 11/24 16:25 Chief complaint: Patient states: "seen Monday and sent home with swelling in his right jd3 side of face. nausea and vomiting last night. missed dialysis yesterday.". Coronavirus screen: At this time, the client does not indicate any symptoms associated with coronavirus-19. Ebola Screen: Patient negative for fever greater than or equal to 101.5 degrees Fahrenheit, and additional compatible Ebola Virus Disease symptoms. Initial Sepsis Screen: Does the patient meet any 2 criteria? No. Patient's initial sepsis screen is negative. Does the patient have a suspected source of infection? No. Patient's initial sepsis screen is negative. Risk Assessment: Do you want to hurt yourself or someone else? Patient reports no desire to harm self or others. Onset of symptoms was November 24, 2020. 16:25 Method Of Arrival: Ambulatory jd3 16:25 Acuity: DEJAN 3 jd3 Triage Assessment: 18:30 General: Appears in no apparent distress. Behavior is calm. iw Historical: - Allergies: 16:27 NKA; jd3 - Home Meds: 16:27 acetaminophen-codeine 300-30 mg Oral tab every 6 hours [Active]; amlodipine-benazepril jd3 10-20 mg Oral cap three times a day [Active]; furosemide 80 mg Oral tab 1 tab 3 times per day [Active]; hydralazine 50 mg Oral tab three times a day [Active]; hydroxyzine HCl 25 mg Oral tab 3 times per day [Active]; Fauzia-Conor 0.8 mg Oral tab daily [Active]; tamsulosin 0.4 mg Oral cp24 1 cap once daily [Active]; carvedilol 6.25 mg Oral tab 2 times per day [Active]; - PMHx: 16:27 Diabetes - NIDDM; Hypertension; ESRD; CHF; insomnia; jd3 - PSHx: 16:27 Shoulder surgery; dialysis ports; jd3 - Immunization history:: Adult Immunizations up to date. - Social history:: Smoking status: Patient denies any tobacco usage or history of. - Family history:: not pertinent. Screenin:38 Abuse screen: Denies threats or abuse. Denies injuries from another. Nutritional iw screening: No deficits noted. Tuberculosis screening: No symptoms or risk factors identified. Fall Risk None identified. Assessment: 18:38 General: Appears in no apparent distress. comfortable. Pain: Complains of pain in right iw jaw and right cheek. Neuro: Level of Consciousness is awake, alert, obeys commands, Oriented to person, place, time, situation, Moves all extremities. Cardiovascular: Patient's skin is warm and dry. Respiratory: Respiratory effort is even, unlabored, Respiratory pattern is regular. Derm: Skin is normal, Abscess located on right jaw and right cheek. Musculoskeletal: Range of motion: intact in all extremities. Vital Signs: 16:28 BP 151 / 79; Pulse 66; Resp 17 S; Temp 98.7(TE); Pulse Ox 98% on R/A; Weight 90.72 kg jd3 (R); Height 5 ft. 7 in. (170.18 cm) (R); Pain 10/10; 16:28 Body Mass Index 31.32 (90.72 kg, 170.18 cm) jd3 ED Course: 16:16 Patient arrived in ED. ds1 16:26 Triage completed. jd3 16:29 Arm band placed on. jd3 16:38 Ambrocio Alonso MD is Attending Physician. jarrell 17:20 CT Facial Bones W/O Con In Process Unspecified. EDMS 17:20 CT Head Brain wo Cont In Process Unspecified. EDMS 17:33 Chest Single View XRAY In Process Unspecified. EDMS 17:34 Initial lab(s) drawn. Inserted saline lock: 22 gauge in left antecubital area, using kj1 aseptic technique. Blood collected. 17:49 Va Rodriguez, KATIANA is Primary Nurse. iw 18:38 Patient has correct armband on for positive identification. iw 19:01 Constantin Ellison MD is Referral Physician. jarrell 19:01 Terri Archibald MD is Referral Physician. jarrell 19:20 Assist provider with I \\T\\ D: of an abscess on right Set up I\\T\\D tray. Performed by Ambrocio Alonso MD Wound packed. iodoform gauze, Dressing with 4X4s, tape Patient tolerated well. IV discontinued, intact, bleeding controlled, No redness/swelling at site. Pressure dressing applied. Administered Medications: 19:25 Drug: Bactroban Ointment 2 % 1 application Route: Topical; Site: affected area; iw 19:39 Not Given (Patient Refused): D50W 25 ml IVP once; (0.5 amp) iw Outcome: 19:01 Discharge ordered by . jarrell 19:38 Discharged to home via wheelchair, with family. iw 19:38 Condition: good 19:38 Discharge instructions given to patient, family, Instructed on discharge instructions, follow up and referral plans. medication usage, Demonstrated understanding of instructions, follow-up care, medications, Prescriptions given X 3. 19:39 Patient left the ED. iw Signatures: Dispatcher [employer] EDAmbrocio Damon MD MD cha Sanford, Demi ds1 Va Rodriguez RN RN iw Davies, Jonathon, RN RN jd3 Jackson, Kandis kj1 Corrections: (The following items were deleted from the chart) 16:31 16:25 Chief complaint: Patient states: "seen Felipe and sent home with swelling in his jd3 right side of face. nausea and vomiting." jd3 16:32 16:25 Chief complaint: Patient states: "seen Felipe and sent home with swelling in his jd3 right side of face. nausea and vomiting last night." jd3
[2020-11-24] MEDS ORDERED: MUPIROCIN 2% OINT 22GM TUBE TOP ONE (19:17)
[2020-11-24] MEDS ORDERED: D50W 25 GM/50 ML SYRINGE IV ONE (19:40)
[2020-11-24 19:43] VITALS: BP 151/79; TEMP 98.7; O2SAT 98
--- NOTE | 2020-11-25 07:14 | RAD REPORT ---
EXAM DESCRIPTION: Kiran Single View2/ 10:37 pm CLINICAL HISTORY: Shortness of breath COMPARISON: 2019 FINDINGS: Upper lobe vessels are prominent indicative of pulmonary venous hypertension. The lungs ap pear clear of acute infiltrate. The heart is mildly to moderately enlarged
--- NOTE | 2020-11-25 08:29 | RAD REPORT ---
EXAM DESCRIPTION: CT - Facial Bones W/ Mpr - 11/24/2020 10:36 pm CLINICAL HISTORY: Facial pain and swelling COMPARISON: None TECHNIQUE: Computed axial tomography of the face was obtained. Coronal and sagittal reconstruction w as performed. All CT scans are performed using dose optimization technique as appropriate and may include automated exposure control or mA/KV adjustment according to patient size. FINDINGS: 4 millimeter air bubble is present within the subcutaneous tissue right cheek. This is mary rounded by mild soft tissue. In total the area measures 9 millimeters. No underlying mandibular abnormality. Visualized sinuses are clear. Visualized airway unremarkable . IMPRESSION: A 9 millimeter area of abnormal density containing a small air bubble within the right c heek probably a small abscess/area of inflammation. A large drainable fluid collection is not noted
--- NOTE | 2020-11-25 08:30 | RAD REPORT ---
EXAM DESCRIPTION: CT - Head Brain Wo Cont - 11/24/2020 10:36 pm CLINICAL HISTORY: Alteration of awareness/confusion COMPARISON: 2019 TECHNIQUE: Computed axial tomography of the head was obtained. IV contrast was not requested. All CT scans are performed using dose optimization technique as appropriate and may include automated exposure control or mA/KV adjustment according to patient size. FINDINGS: An intracranial bleed is not seen . The ventricles are normal in caliber. No extra-axial fluid collection is noted. Small low-density left basal ganglia probably old lacunar i nfarction Mild to moderate low-density areas within periventricular, deep and subcortical white matter likely r epresent ischemic changes secondary to small vessel disease. Fluid within the sinuses/ mastoids is not seen. IMPRESSION: No acute intracranial abnormality is seen. If patient's symptoms persist MRI of the bra in would be recommended.
[2020-11-26] MEDS ORDERED: LIDOCAINE 1% MPF 5 ML VIAL ONE (02:00)
[2020-11-26] MEDS ORDERED: CLINDAMYCIN 600MG/D5W 600 MG/50 ML BAG IV ONE (03:07)
[2020-11-26] MEDS ORDERED: D50W 50 ML IV ONE ×2 (03:48→07:31)
[2020-11-26] MEDS ORDERED: D5 0.45 NS 1,000 ML IV ONE (05:55)
[2020-11-26] MEDS ORDERED: VANCOMYCIN 1 GM/VIAL ONE (06:46)
[2020-11-26] MEDS ORDERED: CEFEPIME/SWI 1gm 10 ML ONE (06:46)
[2020-11-26] MEDS ORDERED: NA CHLORIDE 0.9% 250 ML ONE (06:46)
[2020-11-27] MEDS ORDERED: HALOPERIDOL LACT 5 MG/ML INJ ONE (00:14)
[2020-11-27] MEDS ORDERED: DEXTROSE 10%-WATER 500 ML IV ONE (00:28)
[2020-11-27] MEDS ORDERED: CEFEPIME/SWI 1gm 10 ML ONE (03:46)
[2020-11-27] MEDS ORDERED: HEPARIN 5000 UNIT/ML 1 ML VIAL ONE ×2 (03:46→09:33)
[2020-12-01] MEDS ORDERED: MIDAZOLAM HCL 2 MG/2 ML INJ ONE (08:30)
[2020-12-01] MEDS ORDERED: propofoL 200 MG/20 ML VIAL IV ONE (08:30)
[2020-12-01] MEDS ORDERED: FENTANYL CITR 100 MCG/2 ML ONE (08:30)
[2020-12-01] MEDS ORDERED: ROCURONIUM 50 MG/5 ML VIAL IV ONE (08:31)
[2020-12-01] MEDS ORDERED: LIDOCAINE 2% MPF 5 ML VIAL ONE (08:31)
== END 2020-11-24 19:39 | disposition home or self-care (01) ==
LOC: ER 16:10
PROC: 0H91XZZ Drainage of Face Skin, External Approach (ICD-10-PCS; principal; 2020-11-24)
DX: L02.01 Cutaneous abscess of face (principal); E11.649 Type 2 diabetes mellitus with hypoglycemia without coma; E11.22 Type 2 diabetes mellitus with diabetic chronic kidney disease; N18.6 End stage renal disease; Z99.2 Dependence on renal dialysis; L03.211 Cellulitis of face; I13.2 Hypertensive heart and chronic kidney disease with heart failure and with stage 5 chronic kidney disease, or end stage renal disease; I50.9 Heart failure, unspecified; G47.00 Insomnia, unspecified
CPT/HCPCS: 36415; 70450; 70486; 71045; 76377; 80053; 82140; 84484; 85025; 99284

== ENCOUNTER 2020-11-25 22:18 | Inpatient (IN) | payer OTHER ==
[2020-11-26] MEDS ORDERED: DEXTROSE ORAL 40% 15 GM TUBE ONE (00:25)
[2020-11-26] MEDS ORDERED: D50W 50 ML IV ONE ×2 (00:29→14:58)
[2020-11-26 00:35] LABS: Absolute Lymphocytes (CBC) 0.5 K/uL (0.7-4.9); Basophils % 0.4 % (0-1.3); Hematocrit 33.8 % (39.6-49.0); Lymphocytes % 6.8 % (15.3-44.8); MPV 7.8 fL (7.6-11.3); RBC Red Blood Cell Count 4.03 M/uL (4.33-5.43)
[2020-11-26 00:59] LABS: Potassium 5.3 mmol/L (3.5-5.1)
--- NOTE | 2020-11-26 02:02 | EDPHYS ---
Physician Documentation [facility] Name: Alex Cagle Age: 60 yrs Sex: Male : 1960 Arrival Date: 11/25/2020 Time: 22:21 Bed 5 Private MD: Rodríguez Olguin ED Physician Rodríguez Olguin HPI: 11/26 01:39 This 60 yrs old Male presents to ER via Ambulatory with complaints of AMS, rn twitching. 01:39 The patient presents with confusion, decreased responsiveness. Onset: The rn symptoms/episode began/occurred at an unknown time. Possible causes: unknown. Current symptoms: In the emergency department the patient's symptoms are unchanged from the initial presentation. The patient has experienced similar episodes in the past. Per report, family brought patient in for concerns of AMS, confusion, twitching, and possibly needing dialysis. Patient altered and acting encephalopathic, not able to focus on all interview questions. . Historical: - Allergies: 11/25 23:29 NKA; sg - PMHx: 23:29 CHF; Diabetes - NIDDM; ESRD; Hypertension; insomnia; sg - PSHx: 23:29 Shoulder surgery; dialysis ports; sg - Immunization history:: Adult Immunizations unknown. - Social history:: Smoking status: Patient denies any tobacco usage or history of. - Family history:: not pertinent. - Hospitalizations: : No recent hospitalization is reported. ROS: 11/26 01:39 Constitutional: Negative for fever, chills, and weight loss, Eyes: Negative for injury, rn pain, redness, and discharge, ENT: Negative for injury, pain, and discharge, Neck: Negative for injury, pain, and swelling, Cardiovascular: Negative for chest pain, palpitations Respiratory: Negative for shortness of breath, cough, wheezing, and pleuritic chest pain, Abdomen/GI: Negative for abdominal pain, nausea, vomiting, diarrhea, and constipation, Back: Negative for injury and pain, : Negative for injury, bleeding, discharge, and swelling, MS/Extremity: Negative for injury and deformity, Skin: + swelling to right lower face Neuro: Negative for headache, weakness, numbness, tingling, and seizure. Exam: 01:38 ECG was reviewed by the Attending Physician. rn 01:39 Constitutional: This is a well developed, well nourished patient who is awake, rn encephalopathic Head/Face: Normocephalic, atraumatic. ENT: Dry MM, + mobile swollen area approx 2cm diameter right lower subcutaneous tissues of face, previous packing has fallen out. No crepitus. no swelling of submandibular space. Chest/axilla: Left chest dialysis catheter. Cardiovascular: Regular rate and rhythm . No pulse deficits. Respiratory: No increased work of breathing, no retractions or nasal flaring. Abdomen/GI: soft, non-tender MS/ Extremity: Pulses equal, no cyanosis. Neurovascular intact. Full, normal range of motion. Equal circumference. Neuro: Awake but somnolent, answers some questions, moves all 4 ext with intermittent jerking/twitching, oriented only to person and place, not time. Vital Signs: 00:22 BP 129 / 65; Pulse 64; Resp 18; Temp 97.6; Pulse Ox 98% ; iw Procedures: 02:21 I \\T\\ D: Incision and drainage was performed for an abscess of the right right lower face rn Prepped with Betadine, Anesthetized with 3 ml's 1% Lidocaine. Incised with 18 g needle. Drained moderate amount bloody fluid. the patient tolerated the procedure well, U/S guidance used, small area of hypoechoic/fluid collection, 18 g needle placed in cavity and aspirated blood, no purulence. . MDM: 11/25 23:56 Patient medically screened. rn 11/26 01:59 Differential Diagnosis: electrolyte abnormality, hypoglycemia, intracranial bleed, rn volume depletion. Data reviewed: vital signs, nurses notes, lab test result(s), EKG, radiologic studies, CT scan, and as a result, I will admit patient. Counseling: I had a detailed discussion with the patient and/or guardian regarding: the historical points, exam findings, and any diagnostic results supporting the discharge/admit diagnosis, lab results, radiology results, the need for further work-up and treatment in the hospital. Response to treatment: the patient's symptoms have mildly improved after treatment, and as a result, I will admit patient. Admission orders: after a detailed discussion of the patient's condition and case, the admit orders are written by me. 01:59 ED course: + some improvement in mental status after glucose administration, now > 100, rn neg ct head, family states not eating or drinking lately, encephalopathy likely due to uremia given long history or AMS without other acute explanations found. . 11/26 00:09 Order name: CBC with Diff; Complete Time: 02:44 rn 11/26 00:09 Order name: Basic Metabolic Panel; Complete Time: 01:19 rn 11/26 00:10 Order name: Magnesium; Complete Time: 01:19 rn 11/26 00:17 Order name: Glucose; Complete Time: 01:19 iw 11/26 00:36 Order name: Manual Differential; Complete Time: 02:44 EDMS 11/26 00:43 Order name: Glucose, Ancillary Testing EDMS 11/26 00:45 Order name: Glucose, Ancillary Testing; Complete Time: 01:19 EDMS 11/26 03:38 Order name: Glucose, Ancillary Testing; Complete Time: 07:17 EDMS 11/26 03:39 Order name: COVID-19 : Document "Date of Symptom Onset" if Symptomatic. 11/26 04:06 Order name: CORONAVIRUS EDMS 11/26 04:56 Order name: SARS-COV-2 RT PCR; Complete Time: 07:17 EDMS 11/26 06:38 Order name: Basic Metabolic Panel; Complete Time: 07:17 EDMS 11/26 06:38 Order name: Lipid Profile; Complete Time: 07:17 EDMS 11/26 06:38 Order name: T4 Free; Complete Time: 07:17 EDMS 11/26 06:38 Order name: Magnesium; Complete Time: 07:17 EDMS 11/26 06:38 Order name: Thyroid Stimulating Hormone; Complete Time: 07:17 EDMS 11/26 06:45 Order name: Glucose, Ancillary Testing; Complete Time: 07:17 EDMS 11/26 07:09 Order name: Glucose, Ancillary Testing; Complete Time: 07:17 EDMS 11/26 08:00 Order name: Glucose, Ancillary Testing EDMS 11/26 08:44 Order name: Glucose, Ancillary Testing EDMS 11/26 09:54 Order name: Glucose, Ancillary Testing EDMS 11/26 10:48 Order name: Glucose, Ancillary Testing EDMS 11/26 11:36 Order name: Glucose, Ancillary Testing EDMS 11/26 12:59 Order name: Glucose, Ancillary Testing EDMS 11/26 13:55 Order name: Glucose, Ancillary Testing EDMS 11/26 14:49 Order name: Glucose, Ancillary Testing EDMS 11/26 16:12 Order name: Glucose, Ancillary Testing EDMS 11/26 23:08 Order name: Glucose, Ancillary Testing EDMS 11/27 01:53 Order name: Glucose, Ancillary Testing EDMS 11/27 03:54 Order name: Glucose, Ancillary Testing EDMS 11/26 00:09 Order name: CT Head Brain wo Cont rn 11/26 00:09 Order name: IV Start; Complete Time: 00:19 rn 11/26 00:09 Order name: EKG; Complete Time: 00:10 rn 11/26 00:09 Order name: EKG - Nurse/Tech; Complete Time: 00:35 rn 11/26 00:09 Order name: Glucose Level; Complete Time: 00:19 rn 11/26 00:09 Order name: PO challenge; Complete Time: 00:34 rn 11/26 01:14 Order name: Chest Single View XRAY la1 11/27 05:29 Order name: Glucose, Ancillary Testing EDMS 11/27 05:38 Order name: Blood Culture EDMS 11/27 05:51 Order name: CBC with Automated Diff EDMS 11/27 06:14 Order name: Basic Metabolic Panel EDMS 11/27 06:14 Order name: Liver (Hepatic) Function EDMS 11/27 06:14 Order name: Magnesium EDMS 11/27 07:11 Order name: Glucose, Ancillary Testing EDMS 11/27 08:14 Order name: Glucose, Ancillary Testing EDMS 11/27 09:11 Order name: Glucose, Ancillary Testing EDMS 11/27 11:50 Order name: Glucose, Ancillary Testing EDMS 11/27 12:43 Order name: Glucose, Ancillary Testing EDMS EC:38 Rate is 64 beats/min. Rhythm is regular. QRS [place] is Normal. SC interval is normal. QRS rn interval is normal. QT interval is normal. No Q waves. T waves are Normal. No ST changes noted. Clinical impression: Normal ECG. Interpreted by me. Reviewed by me. Administered Medications: 00:19 Drug: D50W 50 ml Route: IVP; Site: right antecubital; iw 06:16 Follow up: Response: No adverse reaction ea 02:49 CANCELLED (Duplicate Order): Clindamycin 600 mg IVPB once over 30 mins; (mix in 50 mL) rn 03:25 Drug: Clindamycin 600 mg Route: IVPB; Infused Over: 30 mins; Site: right forearm; jason 06:16 Follow up: IV Status: Completed infusion ea 03:39 Drug: D50W 50 ml Route: IVP; Site: right forearm; ea 06:16 Follow up: Response: No adverse reaction ea Point of Care Testing: Blood Glucose: 00:19 Blood Glucose: 27 mg/dL; iw 00:34 Blood Glucose: 114 mg/dL; iw Ranges: Critical Glucose Levels:Adult <50 mg/dl or >400 mg/dl <40 mg/dl or >180 mg/dl Disposition: 11/26/20 02:01 Hospitalization ordered by Will Olguin for Observation. Preliminary diagnosis are Hypoglycemia, unspecified, Altered mental status, unspecified, End stage renal disease. - Bed requested for Telemetry/MedSurg (observation). - Status is Observation. jd3 - Condition is Stable. - Problem is new. - Symptoms have improved. Signatures: Dispatcher [employer] EDMS Hollis Schaefer, RN Ambrocio Harvey MD MD cha Williams, Irene, RN Rodríguez Key MD MD rn Lasagna, Tonya RN RN tl1 Tara Pate, RN Nivia Carlson RN Marley Lindsey ea, RN Parmjit Larsen RN RN Nilesh Clemente RN RN Feli Cesar Corrections: (The following items were deleted from the chart) 02:14 02:01 Hospitalization Ordered by Will Olguin MD for Observation. Preliminary tl1 diagnosis is Hypoglycemia, unspecified; Altered mental status, unspecified; End stage renal disease. Bed requested for Telemetry/MedSurg (observation). Status is Observation. Condition is Stable. Problem is new. Symptoms have improved. rn 02:49 02:44 Clindamycin 600 mg IVPB once over 30 mins; (mix in 50 mL) ordered. rn rn 16:44 02:14 11/26/2020 02:01 Hospitalization Ordered by Will Olguin MD for Observation. ja1 Preliminary diagnosis is Hypoglycemia, unspecified; Altered mental status, unspecified; End stage renal disease. Bed requested for [facility] ER HOLD. Status is Observation. Condition is Stable. Problem is new. Symptoms have improved. tl1 19:42 16:44 11/26/2020 02:01 Hospitalization Ordered by Will Olguin MD for Observation. Preliminary diagnosis is Hypoglycemia, unspecified; Altered mental status, unspecified; End stage renal disease. Bed requested for Telemetry/MedSurg (observation). Status is Observation. Condition is Stable. Problem is new. Symptoms have improved. [facility] 22:25 19:42 11/26/2020 02:01 Hospitalization Ordered by Will Olguin MD for Observation. cg Preliminary diagnosis is Hypoglycemia, unspecified; Altered mental status, unspecified; End stage renal disease. Bed requested for Telemetry/MedSurg (observation). Status is Observation. Condition is Stable. Problem is new. Symptoms have improved. 22:46 22:25 11/26/2020 02:01 Hospitalization Ordered by Will Olguin MD for Observation. cg Preliminary diagnosis is Hypoglycemia, unspecified; Altered mental status, unspecified; End stage renal disease. Bed requested for Telemetry/MedSurg (observation). Status is Observation. Condition is Stable. Problem is new. Symptoms have improved. 11/27 13:29 11/26 22:46 11/26/2020 02:01 Hospitalization Ordered by Will Olguin MD for eb Observation. Preliminary diagnosis is Hypoglycemia, unspecified; Altered mental status, unspecified; End stage renal disease. Bed requested for [facility] ER HOLD. Status is Observation. Condition is Stable. Problem is new. Symptoms have improved. 11/27 15:06 13:29 11/26/2020 02:01 Hospitalization Ordered by Will Olguin MD for Observation. jd3 Preliminary diagnosis is Hypoglycemia, unspecified; Altered mental status, unspecified; End stage renal disease. Bed requested for Telemetry/MedSurg (observation). Status is Observation. Condition is Stable. Problem is new. Symptoms have improved. eb
--- NOTE | 2020-11-26 02:02 | ER ---
Nurse's Notes [facility] Name: Alex Cagle Age: 60 yrs Sex: Male : 1960 Arrival Date: 11/25/2020 Time: 22:21 Bed 5 Private MD: Rodríguez Olguin Diagnosis: Hypoglycemia, unspecified;Altered mental status, unspecified;End stage renal disease Presentation: 11/25 23:27 Chief complaint: Was seen yesterday for tx of abscess and discharged to home, pt family sg report the patient to not have had dialysis recently and is now twitching and acting confused, no other symptoms reported to ER staff at this [facility]. Initial Sepsis Screen: Does the patient meet any 2 criteria?. Risk Assessment: Do you want to hurt yourself or someone else? Patient reports no desire to harm self or others. Onset of symptoms was November 25, 2020. Care prior to arrival: None. Transition of care: patient was not received from another setting of care. 23:27 Acuity: DEJAN 3 23:27 Method Of Arrival: Ambulatory 11/26 01:57 Coronavirus screen: At this time, the client does not indicate any symptoms associated ea with coronavirus-19. Ebola Screen: No symptoms or risks identified at this time. Initial Sepsis Screen: Does the patient have a suspected source of infection? No. Patient's initial sepsis screen is negative. Historical: - Allergies: 11/25 23:29 NKA; sg - PMHx: 23:29 CHF; Diabetes - NIDDM; ESRD; Hypertension; insomnia; sg - PSHx: 23:29 Shoulder surgery; dialysis ports; sg - Immunization history:: Adult Immunizations unknown. - Social history:: Smoking status: Patient denies any tobacco usage or history of. - Family history:: not pertinent. - Hospitalizations: : No recent hospitalization is reported. Screenin/18 01:57 Abuse screen: Denies threats or abuse. Nutritional screening: No deficits noted. ea Tuberculosis screening: No symptoms or risk factors identified. Fall Risk IV access (20 points). Assessment: 11/25 23:30 Reassessment: Patient appears in no apparent distress at this time. Neuro: Level of sg Consciousness is awake, obeys commands, Oriented to person, situation, Speech is normal. Respiratory: Airway is patent Respiratory effort is even, unlabored, Respiratory pattern is regular, symmetrical. 11/26 00:19 Reassessment: notified of pt FSBG, orders received, pt medicated, will repeat sg the FSBG per protocol. 00:45 Reassessment: repeat FSBG reported to ROSEANNE Mantilla at this time. sg 19:15 Reassessment: Report received from PJ RN, Pt currently in HD, Pt already have a room wh assignment just need to give report to Floor Primary Nurse. Vital Signs: 00:22 BP 129 / 65; Pulse 64; Resp 18; Temp 97.6; Pulse Ox 98% ; iw ED Course: 11/25 22:21 Patient arrived in ED. cl3 23:27 Arm band placed on. sg 23:28 Triage completed. sg 23:56 Rodríguez Olguin MD is Attending Physician. rn 11/26 00:10 Initial lab(s) drawn, by me, sent to lab. Inserted saline lock: 20 gauge in right tl1 antecubital area, using aseptic technique. Blood collected. 01:04 CT Head Brain wo Cont In Process Unspecified. EDMS 01:53 Chest Single View XRAY In Process Unspecified. EDMS 01:57 Nivia Langley RN is Primary Nurse. ea 01:58 Patient has correct armband on for positive identification. Bed in low position. Call ea light in reach. Side rails up X2. 02:01 Will Olguin MD is Hospitalizing Provider. rn 06:14 Patient admitted, IV remains in place. ea 07:25 Primary Nurse role handed off by Nivia Langley, KATIANA em1 08:13 Daja Anderson RN is Primary Nurse. ph 22:18 Attending Physician role handed off by Rodríguez Olguin MD mg2 22:18 Primary Nurse role handed off by Daja Anderson, KATIANA mg2 11/27 07:21 Wound care: to laceration located on right cheek was cleaned with Betadine, Patient mg2 tolerated well. 07:22 Assist provider with laceration repair on right cheek that was 2.5 cm. or less using mg2 sutures. Set up tray. Performed by Roverto Bacon MD Dressed with 4X4s, Patient tolerated well. 07:57 Rodríguez Olguin MD is Private Physician. kdr 07:58 Rodríguez Olguin MD is Attending Physician. kdr 13:28 Will Olguin MD is Hospitalizing Provider. eb Administered Medications: 11/26 00:19 Drug: D50W 50 ml Route: IVP; Site: right antecubital; iw 06:16 Follow up: Response: No adverse reaction ea 02:49 CANCELLED (Duplicate Order): Clindamycin 600 mg IVPB once over 30 mins; (mix in 50 mL) rn 03:25 Drug: Clindamycin 600 mg Route: IVPB; Infused Over: 30 mins; Site: right forearm; ea 06:16 Follow up: IV Status: Completed infusion ea 03:39 Drug: D50W 50 ml Route: IVP; Site: right forearm; ea 06:16 Follow up: Response: No adverse reaction ea Point of Care Testing: Blood Glucose: 00:19 Blood Glucose: 27 mg/dL; iw 00:34 Blood Glucose: 114 mg/dL; iw Ranges: Outcome: 02:01 Decision to Hospitalize by Provider. rn 06:14 Admitted to ER Hold. Please see [facility] for further documentation. ea 06:14 Condition: stable 06:14 Instructed on the need for admit, Demonstrated understanding of instructions. 19:39 Admitted to Tele room 423, Report called to Reymundo SAAB, Pt currently on HD. Primary nurse notified 19:42 Patient left the ED. 02 15:06 Patient left the ED. jd3 Signatures: Dispatcher [employer] EDMS Hollis Schaefer RN Clayton Robles MD MD kdr Williams, Irene RN KATIANA Rodríguez Olguin MD MD rn Martinez, Eric em1 Subha Mon RN RN tl1 Daja Anderson RN RN Nivia Langley RN RN ea Habalo, Winsy, RN RN Parmjit Jackson RN RN jd3 Feli Rogers Michele, KATIANA RN mg2 Chapito Ansari cl3 Corrections: (The following items were deleted from the chart) 07:23 02 06:14 No provider procedures requiring assistance completed. ea mg2
[2020-11-26 02:13] LABS: Blood Morphology Comment NOTED (NOT SEEN); Ovalocytes 1+; Platelet Estimate ADEQ; Teardrop Cell 1+
--- NOTE | 2020-11-26 02:31 | P.HP ---
Certification for Inpatient Patient admitted to: Inpatient With expected LOS: >2 Midnights Patient will require the following post-hospital care: None Practitioner: I am a practitioner with admitting privileges, knowledge of patient current condition, hospital course, and medical plan of care. Services: Services provided to patient in accordance with Admission requirements found in Title 42 Section 412.3 of the Code of Federal Regulations <Vasile Hopkins - Last Filed: 11/26/20 02:23> Patient History Date of Service: 11/26/20 Primary Care Provider: Dr. Andrew Reason for admission: Metabolic encephalopathy History of Present Illness: 60-year-old male with history of ESRD on HD, DM 2, hypertension presents emergency department for altered mental status. Patient was seen twice recently in the emergency department for facial abscess had CT approximately 2 days prior demonstrating 9 mm area of abnormal density containing small [place] level within the right cheek probably small abscess or inflammation, patient had incision and drainage of the affected area on the day prior and again had packin g changed on that day. Patient was on Bactrim and doxycycline for the last 2 days as well. states patient has been acting himself over the course of the last couple of days last had dialysis on Monday. Patient was also mildly hypoglycemic during his ED visit 2 days ago with blood sugar of 60. Today patient was encephalopathic, confused initial blood sugar in the ER was 27, patient given amp of dextrose which increases blood sugar to around 100. Patient mental status still maintained encephalopathic after this. After discussing with the patient was taken off of all his diabetic agents after he lost a significant amount of weight. states patient does not take any insulin or oral antidiabetic agents. does report that he has had a poor appetite and not been eating. Labs in the ER significant for sodium 120 potassium 5.3 CO2 19 creatinine 15.7 GFR 3 BUN 79 white blood cell count the normal limits, patient does not appear septic at this time. CT head without any acute findings, chest x-ray with volume overload. ED provider wishes to admit patient for altered mental status, metabolic encephalopathy. - Past Medical/Surgical History Diabetic: Yes -: End-stage renal disease on hemodialysis -: Hypertension -: HTN -: Peritoneal dialysis port -: shoulder surgery Psychosocial/ Personal History: Patient - Family History Family History: Reviewed- Non-Contributory - Social History Smoking Status: Unknown if ever smoked Alcohol use: No CD- Drugs: No Caffeine use: No Place of Residence: Home <Vasile Hopkins - Last Filed: 11/26/20 02:23> Date of Service: 11/26/20 <Will Olguin - Last Filed: 11/26/20 21:03> Allergies No Known Allergies Allergy (Unverified 04/23/18 14:59) Home Medications: Calcium Acetate 667 mg PO TID 04/23/18 Fluoxetine HCl [Prozac] 10 mg PO DAILY 04/23/18 Furosemide 40 mg PO BID 04/23/18 Hydralazine HCl 50 mg PO TID 04/23/18 Hydrocodone 5/APAP 325 [[place] 5/325*] 1 tab PO Q12HP PRN 04/23/18 Nifedipine [Nifedipine ER] 60 mg PO DAILY 04/23/18 Tamsulosin HCl 0.4 mg PO BEDTIME 04/23/18 hydrOXYzine HCL [Atarax] 25 mg PO TID 04/23/18 carvediloL [Coreg] 6.25 mg PO BID #60 tab 04/24/18 Review of Systems is unable to be obtained <Vasile Hopkins - Last Filed: 11/26/20 02:23> Physical Examination - Physical Exam General: Alert, Oriented x2, Confused HEENT: Atraumatic, Normocephalic, Other (Swelling, small area of cellulitis noted to the right cheek area) Neck: Supple Respiratory: Clear to auscultation bilaterally, Crackles/rales (Bilaterally) Cardiovascular: Regular rate/rhythm, Normal S1 S2 Capillary refill: <2 Seconds Gastrointestinal: Normal bowel sounds, Soft and benign, No ascites, No tenderness, No masses Musculoskeletal: No erythema, No tenderness Integumentary: Tenderness/swelling, Erythema, Warmth (Right cheek area) Neurological: Normal strength at 5/5 x4 extr, Normal tone, Sensation intact, Other (Patient appears encephalopathic, no focal neurological deficits noted. states patient has been like this previously when he had Too many toxins in his blood) - Studies Laboratory Data (last 24 hrs) 11/26/20 00:10: Glucose 36 L* 11/26/20 00:10: Sodium 128 L, Potassium 5.3 H, BUN 79 H, Creatinine 15.70 H* D, Glucose 36 L*, Magnesium 3.0 H 11/26/20 00:10: WBC 7.40 D, Hgb 11.1 L, Hct 33.8 L, Plt Count 206 <Vasile Hopkins - Last Filed: 11/26/20 02:23> - Studies Laboratory Data (last 24 hrs) 11/26/20 00:10: Glucose 36 L* 11/26/20 00:10: Sodium 128 L, Potassium 5.3 H, BUN 79 H, Creatinine 15.70 H* D, Glucose 36 L*, Magnesium 3.0 H 11/26/20 00:10: WBC 7.40 D, Hgb 11.1 L, Hct 33.8 L, Plt Count 206 <Will Olguin - Last Filed: 11/26/20 21:03> Assessment and Plan - Plan Assessment Metabolic encephalopathy likely related to uremia, hypoglycemia ESRD on HD with volume overload and uremia Hypoglycemia secondary to anorexia Right facial cellulitis failed outpatient antibiotics Plan Metabolic encephalopathy likely related to uremia, hypoglycemia: Patient mental status did not significantly improved after administration of glucose. Patient BUN 79, missed dialysis. Last dialysis Monday. reports patient has previously acted similar after missing dialysis. No focal neurological deficits noted. CT head without acute findings. Will continue to monitor glucose levels closely and consult nephrology for dialysis. DVT prophylaxis heparin 5000 units subcutaneous twice daily. ESRD on HD with volume overload and uremia: Nephrology consult in place, likely will be dialyzed tomorrow. Appreciate further input from nephrology. Hypoglycemia secondary to anorexia: Will consult dietitian, patient not on any anti diabetic agents or insulin therapies. reports poor oral intake recently. Past swallow screen. Right facial cellulitis failed outpatient antibiotics: Blood cultures, wound culture collected. Patient on Bactrim/doxycycline for the last 48 hr in addition to incision and drainage. Facial CT did not demonstrate any significant abscess or drainable collection. Continue vancomycin/cefepime at this time. Can likely be scaled back. Discharge Plan: Home Plan to discharge in: 72 Hours - Advance Directives Does patient have a Living Will: No Does patient have a Durable POA for Healthcare: No - Code Status/Comfort Care Code Status Assessed: Yes (Full code) Critical Care: No Time Spent Managing Pts Care (In Minutes): 55 <Vasile Hopkins - Last Filed: 11/26/20 02:23> - Plan Plan of care reviewed as noted above by Vasile Hopkins and agree. Metabolic encephalopathy - likely related to uremia, possibly due in part to recent antibiotics, ?bactrim, possible sepsis - pt on broad spectrum antibiotics for now nephrology consulted for HD. pt with hyponatremia and hyperkalemia unclear etiology of persistent hypoglycemia. pt required d5 drip. He reports nausea and no appetite, at times just refusing to eat <Will Olguin - Last Filed: 11/26/20 21:03>
[2020-11-26] MEDS ORDERED: CEFEPIME 1 GM/10 ML SYR IV SCH (04:46)
[2020-11-26] MEDS ORDERED: ACETAMINOPHEN 500 MG TAB PO PRN (04:46)
[2020-11-26] MEDS ORDERED: VANCOMYCIN/NS 1 gm 1 GM/250 ML BAG IVPB SCH ×2 (04:46→08:15)
[2020-11-26] MEDS ORDERED: ONDANSETRON 4 MG/2 ML VIAL IV PRN (04:46)
[2020-11-26] MEDS: CEFEPIME/SWI 1gm 10 ML IV SCH ×2 (05:00→23:00)
[2020-11-26] MEDS ORDERED: D5 0.45 NS 1,000 ML IV SCH (06:00)
[2020-11-26 06:31] LABS: Magnesium 2.8 mg/dL (1.8-2.4); Potassium 5.5 mmol/L (3.5-5.1); Thyroid Stimulating Hormone 0.427 uIU/mL (0.360-3.740)
[2020-11-26] MEDS ORDERED: D50W 25 GM/50 ML SYRINGE IV ONE ×2 (07:56→10:08)
[2020-11-26] MEDS ORDERED: ONDANSETRON 4 MG/2 ML VIAL ONE (08:07)
--- NOTE | 2020-11-26 08:12 | RAD REPORT ---
EXAM DESCRIPTION: RAD - Chest Single View - 11/26/2020 1:53 am CLINICAL HISTORY: eval volume status, shortness of breath, dialysis patient COMPARISON: Portable November 24 TECHNIQUE: AP portable chest image was obtained 11/26/2020 1:53 am . FINDINGS: No peripheral mass or consolidation. Cardiac silhouette and central vasculature are accent uated by shallow inspiration. No significant degree of failure or volume overload identifiable. Trach ea is midline. Left-sided dialysis catheter in place No measurable pleural effusion and no pneumothor ax. No acute bony abnormality seen. No acute aortic findings suspected. IMPRESSION: Cardiomegaly and mild vascular engorgement not substantially different comparison. Patient could have minimal severity failure or volume overload. No significant edema present.
[2020-11-26] MEDS: HEPARIN 5000 UNIT/ML 1 ML VIAL SQ SCH ×2 (09:00→23:05)
[2020-11-26] MEDS: D50W 25 GM/50 ML SYRINGE IV PRN ×4 (09:45→17:10)
[2020-11-26] MEDS ORDERED: HEPARIN 5000 UNIT/ML 1 ML VIAL ONE (10:08)
--- NOTE | 2020-11-26 10:14 | RAD REPORT ---
EXAM DESCRIPTION: CT - Head Brain Wo Cont - 11/26/2020 7:14 am CLINICAL HISTORY: CONFUSED COMPARISON: 11/24/2020. TECHNIQUE: CT HEAD WITHOUT IV CONTRAST on 11/26/2020 12:09 AM VISCOSITY INSPECTOR This exam was performed according to our departmental dose-optimization program, which includes autom ated exposure control, adjustment of the mA and/or kV according to patient size and/or use of iterati ve reconstruction technique. FINDINGS: There is no acute hemorrhage, mass effect or midline shift. Stone-white differentiation is preserved. There is no hydrocephalus. There is no significant volume loss for age. The calvarium is intact. Orbits and globes are unremarkable. The paranasal sinuses are clear. Mastoid air cells are clear. IMPRESSION: No acute intracranial findings. Electronically signed by: Buddy Agee MD 11/26/2020 1:08 AM VISCOSITY INSPECTOR Due to temporary technical issues with the PACS/Fluency reporting system, reports are being signed by the in house radiologist without review as a courtesy to ensure prompt reporting. The interpreting r adiologist is fully responsible for the content of the report.
[2020-11-26] MEDS: DEXTROSE 10%-WATER 500 ML IV SCH (15:30)
[2020-11-26] MEDS ORDERED: DEXTROSE 10%-WATER 500 ML IV ONE (16:32)
--- NOTE | 2020-11-26 18:05 | CON ---
Date of Consultation: 11/26/2020 Reason For Consultation: Elevated BUN and creatinine, fluid over volume. History Of Present Illness: This is a pleasant 60-year-old gentleman, well known to me from the dialysis with significant past medical history of diabetes complicated with neuropathy, nephropathy, and retinopathy, hypertension, hyperlipidemia, end-stage renal disease, on dialysis at [facility], used to be on PD. The patient came to the hospital few days ago with right cheek abscess status post I and D. Sent on Bactrim and doxycycline. As by his , the patient started having altered mental status. For that reason, patient was brought to the ER again, found to have marginal hypoglycemia. Blood sugar was low and found to have hyperkalemia with hyponatremia. For that reason, we have been consulted. Past Medical History: Includes, 1. End-stage renal disease. 2. Hypertension. 3. Hyperlipidemia. Past Surgical History: Includes, 1. PD catheter placement and removal. 2. PermCath placement. 3. Shoulder surgery. Home Medications: Include PhosLo, fluoxetine, Lasix, hydralazine, hydrocodone, nifedipine, Flomax, Atarax, carvedilol. Family History: Positive for hypertension. Social History: Denies smoking. Occasional alcohol. Denies drugs abuse. Review of Systems: None obtainable. The patient is confused. Physical Examination: Vital Signs: When I saw the patient, blood pressure 143/72, pulse of 73. Chest: Clear to auscultation. Heart: S1, S2. Regular. Systolic murmur. Abdomen: Soft, nontender. Extremities: No edema. Neuro: Confused. Moving 4 extremity. Had laceration secondary to the drainage before on the right cheek. Laboratory Data: WBC 7.4, H and H 11.1/33.8. Sodium 126, potassium 5.5, bicarb 21, BUN 85, creatinine 15, calcium 9.3, magnesium 2.8. Culture done on the 13 showing MRSA on the wound. Assessment And Plan: 1. End-stage renal disease with hyperkalemia, hyponatremia, altered mental status. I am going to arrange for the dialysis today. We will dialyze on low sodium bath to avoid over correction and we will monitor the patient. The patient mostly going to need another session of dialysis tomorrow. 2. Hypertension, controlled, optimal, currently blood pressure on the lower side. We will hold all blood pressure medication. 3. Anemia of chronic kidney disease. No need for HASEEB. 4. Hyponatremia. Going to be corrected with dialysis. 5. Hypoglycemia, possible secondary to sepsis. We will start the patient on D10 to avoid over volume. 6. Altered mental status, encephalopathy, multifactorial, possible secondary to hyponatremia, secondary to sepsis, secondary to uremia. We will arrange for dialysis for today and tomorrow and we will follow up. Time spent discussing with the patient, examining the patient, exam [id number], placing order, discussing with staff and other consulting include including Cardiology and Primary 75 minutes. RENAE Voice ID: [id number] Report ID: [id number]
[2020-11-26] MEDS: NEPRO SHAKE 237 ML CAN PO SCH (21:00)
[2020-11-26] MEDS ORDERED: D5 0.45 NS 1,000 ML IV ONE (22:57)
[2020-11-26] MEDS ORDERED: LORazepam 2 MG/ML VIAL IV ONE (23:37)
[2020-11-26] MEDS ORDERED: LORazepam 2 MG/ML VIAL ONE (23:40)
[2020-11-27] MEDS ORDERED: HALOPERIDOL LACT 5 MG/ML INJ IV ONE (00:05)
[2020-11-27] MEDS: DEXTROSE 10%-WATER 500 ML IV SCH ×2 (00:20→04:00)
[2020-11-27 03:56] VITALS: BMI 31.3
[2020-11-27 05:45] LABS: Absolute Lymphocytes (CBC) 0.6 K/uL (0.7-4.9); Basophils % 0.7 % (0-1.3); Hematocrit 29.3 % (39.6-49.0); Lymphocytes % 10.6 % (15.3-44.8); MPV 7.5 fL (7.6-11.3); RBC Red Blood Cell Count 3.51 M/uL (4.33-5.43)
[2020-11-27 06:00] LABS: Albumin 3.3 g/dL (3.4-5.0); Bilirubin Direct 0.1 mg/dL (0-0.2); Bilirubin Total 0.3 mg/dL (0.2-1.0); Magnesium 2.5 mg/dL (1.8-2.4); Protein, Total 6.2 g/dL (6.4-8.2)
[2020-11-27] MEDS ORDERED: LIDOCAINE 1% W/EPI 1:100,000 MDV 20 ML VIAL ONE (07:00)
[2020-11-27] MEDS: NEPRO SHAKE 237 ML CAN PO SCH ×2 (09:00→20:34)
[2020-11-27] MEDS: HEPARIN 5000 UNIT/ML 1 ML VIAL SQ SCH ×2 (09:00→20:33)
[2020-11-27] MEDS: CEFEPIME/SWI 1gm 10 ML IV SCH ×2 (09:00→20:33)
--- NOTE | 2020-11-27 12:16 | P.PN ---
Subjective Date of Service: 11/27/20 Primary Care Provider: Dr. Andrew Chief Complaint: Metabolic encephalopathy Subjective Pt with ESRD , admitted with AMS today more alert denied nausea, vomiting or dirrhea HD tomorrow Physical exam general: Alert, NAD, rtfacial dressing Neck; Supple, No elevated JVD hear: RRR, normal S1,2 no murmur or rub Chest: CTAB, no rales or wheezes Abdomen: Soft , Nt Extremities No edema or ulcer Assessment And Plan: ESRD on HD Via Lt IJ catheter HD TTSat renal dose meds hyponatremia will correct with HD AMS likely due to metabolic encephalopathy and hypoglycemia improved facial wound with hematoma wound care hold blood thinners Physical Examination - Vital Signs Temperature: 99.5 F Blood Pressure: 165/87 Pulse: 68 Respirations: 15 Pulse Ox (%): 97
--- NOTE | 2020-11-27 17:09 | P.PN ---
Subjective Date of Service: 11/27/20 Primary Care Provider: Dr. Andrew Chief Complaint: Metabolic encephalopathy Subjective: Improving (more alert / oriented today, still with some mild confusion. arterial bleed from R cheek) Review of Systems 10-point ROS is otherwise unremarkable Physical Examination - Vital Signs Temperature: 99.5 F Blood Pressure: 165/87 Pulse: 68 Respirations: 15 Pulse Ox (%): 97 Assessment & Plan Physician Review Additional Text: Physical exam Gen: NAD HEENT: ~2cm palpable fluid collection of R cheek at site of arterial bleed CV: RRR Pulm: CTAB, nonlabored abd: soft, NTND Ext: no edema Problem List Metabolic encephalopathy likely related to uremia, hypoglycemia ESRD on HD with volume overload and uremia Hypoglycemia secondary to anorexia Right facial cellulitis failed outpatient antibiotics mental status improved after dialysis. Does not appear to have infection at this time. Glc improving Nephrology consulted for hemodialysis, to undergo dialysis tomorrow Hypoglycemia secondary to poor oral intake, possible side effect of Bactrim Cultures negative so far. Will continue vancomycin/cefepime for now Small arterial bleed from right cheek, prior I and D site. ER physician was able to place a stitch. pressure dressing applied VTE: hold prophylaxis given bleed Dispo: possible dc home tomorrow after dialysis, monitor for bleed Time Spent Managing Pts Care (In Minutes): 40
[2020-11-28] MEDS: HYDRALAZINE HCL 25 MG TABLET PO SCH ×4 (00:12→17:24)
[2020-11-28] MEDS: DEXTROSE 10%-WATER 500 ML IV SCH (05:00)
[2020-11-28 06:24] LABS: Absolute Lymphocytes (CBC) 0.5 K/uL (0.7-4.9); Hematocrit 30.6 % (39.6-49.0); MPV 7.9 fL (7.6-11.3); RBC Red Blood Cell Count 3.63 M/uL (4.33-5.43)
[2020-11-28 07:02] LABS: Albumin 3.2 g/dL (3.4-5.0); Bilirubin Total 0.3 mg/dL (0.2-1.0); Magnesium 2.4 mg/dL (1.8-2.4); Potassium 4.7 mmol/L (3.5-5.1); Protein, Total 6.1 g/dL (6.4-8.2)
[2020-11-28] MEDS ORDERED: FERRIC CITRATE 210 MG PO SCH ×2 (08:00→09:00)
[2020-11-28] MEDS: CALCIUM ACETATE 667 MG TAB PO SCH ×5 (08:10→20:40)
[2020-11-28] MEDS: NEPRO SHAKE 237 ML CAN PO SCH ×2 (08:11→20:46)
[2020-11-28] MEDS: HEPARIN 5000 UNIT/ML 1 ML VIAL SQ SCH ×2 (08:11→20:45)
[2020-11-28] MEDS: FERRIC CITRATE 210 MG PO SCH ×4 (09:00→20:46)
[2020-11-28] MEDS: HOME MED 1 EA UNK (Folic Acid/Vit B Complex And C [Rena-Vite Tablet] 0.8 MG Tablet) PO SCH ×3 (09:00→17:16)
[2020-11-28] MEDS ORDERED: carvediloL 6.25 MG TAB PO SCH (09:00)
[2020-11-28] MEDS ORDERED: HOME MED 1 EA UNK (Folic Acid/Vit B Complex And C [Rena-Vite Tablet] 0.8 MG Tablet) PO SCH (09:00)
--- NOTE | 2020-11-28 13:32 | P.PN ---
Subjective Date of Service: 11/28/20 Primary Care Provider: Dr. Andrew Chief Complaint: Metabolic encephalopathy Subjective: Improving (much more alert / oriented this morning. feeling better, still reporting generalized weakness) Review of Systems 10-point ROS is otherwise unremarkable Physical Examination - Vital Signs Temperature: 98.9 F Blood Pressure: 186/85 Pulse: 67 Respirations: 18 Pulse Ox (%): 95 Assessment & Plan Physician Review Additional Text: Physical exam: Gen: NAD HEENT: ~2cm palpable fluid collection of R cheek at site of prior arterial bleed / abscess CV: RRR Pulm: CTAB, nonlabored abd: soft, NTND Ext: trace edema in lower extremities Problem List Metabolic encephalopathy likely related to uremia, hypoglycemia ESRD on HD with volume overload and uremia Hypoglycemia secondary to anorexia Right facial cellulitis failed outpatient antibiotics Hyponatremia mental status continuing to improve after dialysis and improvement of glucose Nephrology consulted for hemodialysis, to undergo dialysis today Hypoglycemia secondary to poor oral intake, possible side effect of Bactrim Abscess culture growing MRSA from ED visit. Continue vancomycin, stopped cefepime 11/27 Small arterial bleed from right cheek, prior I and D site. ER physician was able to place a stitch. no active bleed, +palpable hematoma Hyponatremia likely due to hypervolemia - dc D10 today, pt's glc improving VTE: hold prophylaxis given bleed Dispo: Anticipate discharge home, likely tomorrow, needs dialysis/diuresis Time Spent Managing Pts Care (In Minutes): 40
--- NOTE | 2020-11-28 14:19 | PN ---
Date of Progress Note: 11/28/2020 Subjective: The patient was admitted with cheek abscess, encephalopathy secondary to hypoglycemia and uremia. Physical Examination: Vital Signs: Blood pressure 186/85, pulse of 67, afebrile. Chest: Faint crackles bilateral base. Heart: S1, S2, systolic murmur. Abdomen: Soft, nontender. Extremities: No edema. Neurologic: Alert, oriented x3. No focality. No tremor. Head: Had swelling and edema on the right cheek. Laboratory Data: WBC 4.4, H and H 10.2/30.6. Sodium 129, potassium 4.7, bicarb 22, BUN 51, creatinine , calcium 9.3, phos 6. Current Medications: Include: 1. Flomax. 2. Cefepime. 3. Vancomycin. 4. Heparin. 5. Carvedilol 6.25 b.i.d. 6. Hydralazine 50 t.i.d. 7. PhosLo. 8. Nepro. 9. Zofran. 10. Amlodipine. 11. Ferric sulfate. Assessment And Plan: 1. End-stage renal disease. We will continue the patient on dialysis. The patient is going to receive dialysis today. Then we are going to switch him to Monday, Monday, Monday. 2. Overvolume. We will challenge the patient. 3. Hypertension. Increase hydralazine to 100 mg. Increase carvedilol to 25 b.i.d. and we will monitor blood pressure after dialysis. 4. Hyponatremia, going to be corrected on dialysis. 5. Hyperkalemia, resolved. 6. Anemia of chronic kidney disease. Continue HASEEB. 7. Secondary hyperparathyroidism. Continue the binder. 8. Cheek's abscess status post drainage. Continue current antibiotic. We will follow up with the primary. 9. Over volume as above. The patient is cleared from the renal standpoint for discharge planning. Time spent discussing with the patient, examining the patient, exam [id number], placing order, discussing with staff and other consulting include Primary 45 minutes. RENAE Voice ID: [id number] Report ID: [id number] MARY
[2020-11-28] MEDS: TAMSULOSIN 0.4 MG SR CAP PO SCH (20:44)
[2020-11-28] MEDS: CEFEPIME/SWI 1gm 10 ML IV SCH (20:44)
[2020-11-28] MEDS: carvediloL 6.25 MG TAB PO SCH (20:47)
[2020-11-29] MEDS: HYDRALAZINE HCL 25 MG TABLET PO SCH ×3 (00:51→18:20)
[2020-11-29] MEDS ORDERED: HYDRALAZINE HCL 20 MG/ML VIAL IV ONE (04:54)
[2020-11-29 06:15] LABS: Absolute Lymphocytes (CBC) 0.6 K/uL (0.7-4.9); Basophils % 0.6 % (0-1.3); Hematocrit 30.3 % (39.6-49.0); Lymphocytes % 12.9 % (15.3-44.8); MPV 7.8 fL (7.6-11.3); RBC Red Blood Cell Count 3.64 M/uL (4.33-5.43)
[2020-11-29 06:46] LABS: Albumin 3.5 g/dL (3.4-5.0); Phosphorus 4.8 mg/dL (2.5-4.9); Potassium 4.5 mmol/L (3.5-5.1)
[2020-11-29] MEDS: AMLODIPINE 10 MG TAB PO SCH ×2 (08:00→09:00)
[2020-11-29] MEDS: FERRIC CITRATE 210 MG PO SCH ×5 (08:00→20:49)
[2020-11-29] MEDS: CALCIUM ACETATE 667 MG TAB PO SCH ×5 (08:59→18:21)
[2020-11-29] MEDS ORDERED: AMLODIPINE 10 MG TAB PO SCH (09:00)
[2020-11-29] MEDS ORDERED: D50W 25 GM/50 ML VIAL IV PRN (09:00)
[2020-11-29] MEDS: NEPRO SHAKE 237 ML CAN PO SCH ×2 (09:00→21:35)
[2020-11-29] MEDS: carvediloL 6.25 MG TAB PO SCH ×2 (09:00→20:48)
[2020-11-29] MEDS: HEPARIN 5000 UNIT/ML 1 ML VIAL SQ SCH ×2 (09:08→20:47)
[2020-11-29] MEDS: BUMETANIDE 1 MG/4 ML VIAL IV SCH (09:13)
[2020-11-29] MEDS: NIFEDIPINE XL 90 MG TABLET PO SCH (12:55)
[2020-11-29] MEDS: BENAZEPRIL 20 MG TAB PO SCH ×2 (12:55→20:48)
--- NOTE | 2020-11-29 20:40 | P.PN ---
Subjective Date of Service: 11/29/20 Primary Care Provider: Dr. Andrew Chief Complaint: Metabolic encephalopathy Subjective: Improving (alert / oriented, no confusion. back to baseline. feeling well, but still with fatigue / mild generalized weakness) Review of Systems 10-point ROS is otherwise unremarkable Physical Examination - Vital Signs Temperature: 99.1 F Blood Pressure: 159/78 Pulse: 73 Respirations: 18 Pulse Ox (%): 94 Assessment & Plan Physician Review Additional Text: Physical exam: Gen: NAD HEENT: ~[id number] palpable fluid collection of R cheek at site of prior arterial bleed / abscess CV: RRR Pulm: CTAB, nonlabored on RA abd: soft, NTND Ext: trace edema to ankels Problem List Metabolic encephalopathy likely related to uremia, hypoglycemia ESRD on HD with volume overload and uremia Hypoglycemia secondary to anorexia Right facial cellulitis failed outpatient antibiotics Hyponatremia mental status continuing to improve after dialysis and improvement of glucose and dialysis Nephrology consulted for hemodialysis Hypoglycemia secondary to poor oral intake, possible side effect of Bactrim. patient not eating much as well Abscess culture growing MRSA from ED visit. Continue vancomycin, stopped cefepime 11/27 Small arterial bleed from right cheek, prior I and D site. ER physician was able to place a stitch. no active bleed, +palpable hematoma Hyponatremia likely due to hypervolemia - dc D10 today, pt's glc improving BP very high today, eventually got home medications corrected, patient had some improvement late this evening will continue monitoring overnight, discharge tomorrow pending improvement of BP VTE: hold prophylaxis given bleed, pt ambulating Dispo: Anticipate discharge home tomorrow Time Spent Managing Pts Care (In Minutes): 35
[2020-11-29] MEDS: TAMSULOSIN 0.4 MG SR CAP PO SCH (20:48)
[2020-11-29] MEDS ORDERED: MELATONIN 5 MG TABLET PO PRN (21:36)
--- NOTE | 2020-11-29 22:04 | PN ---
Date of Progress Note: 11/29/2020 Subjective: The patient was admitted with hypoglycemia, low blood pressure, found to have abscess in his cheek. The patient was treated and recovered. His altered mental status was secondary to hypoglycemia, hyponatremia, and uremic encephalopathy secondary to missing dialysis. The patient has been dialyzed, tolerated well. The patient is scheduled for dialysis tomorrow. Physical Examination: Vital Signs: When I saw the patient, blood pressure 139/78, pulse of 73, afebrile. Chest: Clear to auscultation. Heart: S1, S2. Regular. Abdomen: Soft nontender. Extremities: No edema. Head and Neck: Residual edema on the right cheek. No drainage. Neurologic: Alert and oriented x3. No focal deficit. Laboratory Data: WBC 4.9, H and H 10.4/30.3. Sodium 133, potassium 4.5, bicarb 24, BUN 35, creatinine 9.6. Current Medications: The patient on include Flomax, cefepime, vancomycin, heparin, carvedilol, hydralazine, PhosLo, Zofran, Nepro, clonazepam. Assessment And Plan: 1. End-stage renal disease. We will continue the patient on dialysis. We will schedule the patient for another session of dialysis as Monday, Monday, Monday. 2. Secondary hyperparathyroidism, stable. Continue binder. 3. Anemia of chronic kidney disease. Continue HASEEB. 4. Cheek abscess, status post incision and drainage. Continue vancomycin. 5. Encephalopathy, uremic/hyponatremia/secondary to infection, resolved. 6. Diabetes as per primary. The patient cleared from the renal standpoint for discharge planning. Time spent discussing with the patient, examining the patient, exam [id number], placing order, discussing with staff and other consulting include Primary 45 minutes. EDGARDO/BETTINA Voice ID: [id number] Report ID: [id number] MARY
[2020-11-30] MEDS: HYDRALAZINE HCL 25 MG TABLET PO SCH ×2 (01:03→08:57)
[2020-11-30 05:07] LABS: Absolute Lymphocytes (CBC) 0.8 K/uL (0.7-4.9); Basophils % 1.1 % (0-1.3); Lymphocytes % 14.2 % (15.3-44.8); MPV 7.9 fL (7.6-11.3); RBC Red Blood Cell Count 3.48 M/uL (4.33-5.43)
[2020-11-30 05:24] LABS: Albumin 3.3 g/dL (3.4-5.0); Magnesium 2.3 mg/dL (1.8-2.4); Potassium 4.4 mmol/L (3.5-5.1)
[2020-11-30] MEDS: CALCIUM ACETATE 667 MG TAB PO SCH ×3 (08:55→12:00)
[2020-11-30] MEDS: BENAZEPRIL 20 MG TAB PO SCH (08:55)
[2020-11-30] MEDS: carvediloL 6.25 MG TAB PO SCH (08:57)
[2020-11-30] MEDS: HEPARIN 5000 UNIT/ML 1 ML VIAL SQ SCH (08:58)
[2020-11-30] MEDS: NIFEDIPINE XL 90 MG TABLET PO SCH (08:58)
[2020-11-30] MEDS: FERRIC CITRATE 210 MG PO SCH ×3 (09:00→12:00)
[2020-11-30] MEDS: BUMETANIDE 1 MG/4 ML VIAL IV SCH (09:00)
[2020-11-30] MEDS: HOME MED 1 EA UNK (Folic Acid/Vit B Complex And C [Rena-Vite Tablet] 0.8 MG Tablet) PO SCH (09:01)
[2020-11-30] MEDS: NEPRO SHAKE 237 ML CAN PO SCH (09:02)
--- NOTE | 2020-11-30 11:55 | P.DS ---
Admission Date: 11/26/20 Discharge Date: 11/30/20 Primary Care Provider: Dr. Andrew Disposition: ROUTINE DISCHARGE Discharge Condition: GOOD Reason for Admission: Metabolic encephalopathy Consultations: Nephrology - Dr. Ellison Procedures: CT Head (11/26): No acute intracranial findings. CXR (11/26): Cardiomegaly and mild vascular engorgement not substantially different comparison. Patient could have minimal severity failure or volume overload. No significant edema present. Figure eight stitch in R cheek (11/26) by ED Physician, Dr. Bacon Problem List: Metabolic encephalopathy due to uremia ESRD on HD with volume overload and uremia Hypoglycemia secondary to anorexia R small facial artery bleed - now s/p figure of eight stitch Right facial cellulitis / abscess s/p I&D Acute Hyponatremia Brief History of Present Illness: 60yo M, PMH: ESRD on HD, DM2, HTN presented to ED due to altered mental status. He was seen recently in ED twice over past 2-3 days for R facial abscess. Underwent I&D and then packing changed by ED physician. Discharged hoem with Bactrim and Doxy. Today patient was encephalopathic, confused initial blood sugar in the ER was 27, patient given amp of dextrose which increases blood sugar to around 100. Patient mental status still maintained encephalopathic after this. After discussing with the patient was taken off of all his diabetic agents after he lost a significant amount of weight. states patient does not take any insulin or oral antidiabetic agents. does report that he has had a poor appetite and not been eating. Labs in the ER significant for sodium 120 potassium 5.3 CO2 19 creatinine 15.7 GFR 3 BUN 79 white blood cell count the normal limits, patient does not appear septic at this time. CT head without any acute findings, chest x-ray with volume overload. ED provider wishes to admit patient for altered mental status, metabolic encephalopathy. Hospital Course: Patient was maintained on continuous IV infusion with dextrose to maintain glucose >70. Nephrology was consulted and patient underwent hemodialysis correcting his hyponatremia and metabolic encephalopathy. Patient's appetite returned and he was able to maintain glc > 70 on his own. One possibility is a rare side effect of Bactrim in patients with diabetes and ESRD. He was advised to avoid this medication if possible. On the morning of admission, patient began to have a spontaneous bleed from R cheek after possible "scratching off the scab" per patient. The bleeding was noted to be at the site of R cheek I&D site and was small arterial bleed. General surgery was consulted, however prior to their arrival, ED physician was available and able to achieve hemostasis with a figure of eight stitch, using 4- 0 absorbable suture. Patient developed a small hematoma at this site as well. Advised to use warm compresses on his cheek. Wound culture from initial ED I&D resulted MRSA. Patient was advised to continue with Doxy only (sensitive), to continue hemodialysis as scheduled, and he stated he has a physician/surgeon to follow up with already for his R cheek. Vital Signs/Physical Exam: Physical exam: Gen: NAD, AAOx3 HEENT: ~[id number] palpable fluid collection of R cheek at site of prior arterial bleed / abscess CV: Regular rate and rhythm Pulm: CTAB, nonlabored on RA abd: soft, NTND Ext: trace edema to ankles bilaterally Temp Pulse Resp BP Pulse Ox 97.9 F 62 16 169/77 H 97 11/30/20 08:00 11/30/20 08:58 11/30/20 08:00 11/30/20 08:58 11/30/20 08:00 Laboratory Data at Discharge: WBC 5.40 K/uL (4.3-10.9) 11/30/20 04:20 Hgb 9.8 g/dL (13.6-17.9) L 11/30/20 04:20 Hct 29.0 % (39.6-49.0) L 11/30/20 04:20 Plt Count 178 K/uL (152-406) 11/30/20 04:20 Sodium 133 mmol/L (136-145) L 11/30/20 04:20 Potassium 4.4 mmol/L (3.5-5.1) 11/30/20 04:20 BUN 41 mg/dL (7-18) H 11/30/20 04:20 Creatinine 11.70 mg/dL (0.55-1.3) H* D 11/30/20 04:20 Glucose 113 mg/dL (74-106) H 11/30/20 04:20 Phosphorus 6.0 mg/dL (2.5-4.9) H 11/30/20 04:20 Magnesium 2.3 mg/dL (1.8-2.4) 11/30/20 04:20 Total Bilirubin 0.3 mg/dL (0.2-1.0) 11/28/20 05:24 AST 26 U/L (15-37) 11/28/20 05:24 ALT 36 U/L (12-78) 11/28/20 05:24 Alkaline Phosphatase 75 U/L (45-117) 11/28/20 05:24 Triglycerides 72 mg/dL (<150) 11/26/20 05:31 Cholesterol 129 mg/dL (<200) 11/26/20 05:31 HDL Cholesterol 65 mg/dL (40-60) H 11/26/20 05:31 Cholesterol/HDL Ratio 1.98 11/26/20 05:31 Home Medications: RX: Amlodipine Besylate/Benazepril [Amlodipine-Benazepril 10-20 mg] 1 tab PO TID 11/27/20 RX: Calcium Acetate [Phoslo] 2 cap PO BID 11/27/20 RX: Calcium Acetate [Phoslo] 6 cap PO TIDWM 11/27/20 RX: Codeine/APAP [Tylenol #3*] 1 tab PO QID PRN 11/27/20 RX: Ferric Citrate [Auryxia] 1 tab PO BID 11/27/20 RX: Ferric Citrate [Auryxia] 2 tab PO TIDWM 11/27/20 RX: Folic Acid/Vit B Complex and C [Fauzia-Conor Tablet] 1 tab PO DAILY 11/27/20 RX: Furosemide [Lasix] 80 mg PO BID 11/27/20 RX: Tamsulosin [Flomax*] 1 cap PO BEDTIME 11/27/20 RX: diazePAM [Diazepam] 10 mg PO BID PRN 11/27/20 RX: Hydralazine HCl 100 mg PO Q8H 30 Days #90 tablet 11/30/20 RX: carvediloL [Coreg*] 25 mg PO BID 30 Days #60 tab 11/30/20 New Medications: RX: carvediloL [Coreg*] 25 mg PO BID 30 Days #60 tab RX: Hydralazine HCl 100 mg PO Q8H 30 Days #90 tablet Diet: Renal Activity: Ad adina Followup: Unknown,U [Primary Care Provider] - Time spent managing pt's care (in minutes): 45
[2020-11-30 14:23] VITALS: O2SAT 99
[2020-11-30 14:24] VITALS: BP 162/103; TEMP 97.7
--- NOTE | 2020-11-30 22:48 | PN ---
Date of Progress Note: 11/30/2020 Chief Complaint: End-stage renal disease, on dialysis; fluid overload. Subjective: The patient was admitted to the hospital for abscess involving the left hip. The patien t was found to have hypoglycemia and hypotension. He was admitted for sepsis and cellulitis with abs cess formation. The patient was found to have uremic encephalopathy secondary to missing dialysis. Today, he is undergoing dialysis, mental status improving and the patient is at baseline. Review of Systems: Denies PND or orthopnea. Physical Examination: Lungs: Diminished breath sounds at bases. Heart: S1, S2. Abdomen: Soft, benign. Extremities: Slight edema. Laboratory Data: BUN 35, creatinine 9.6, potassium 4.5, sodium 133. Impression And Plan: 1.End-stage renal disease. Continue dialysis 3 times per week. The patient is undergoing dialysis session today with ultrafiltration if tolerated. Tolerating ultrafiltration. Blood pressure is stab le. 2.Secondary hyperparathyroidism. Continue binders. 3.Anemia of chronic kidney disease. The patient will continue HASEEB. Monitor hemoglobin level. Curr ently, hemoglobin level is at target range. 4.Cheek abscess, status post incision and drainage. Continue vancomycin. 5.Altered mental status, encephalopathy secondary to infection and missing dialysis. The patient is on antibiotics. Continue vancomycin and cefepime to cover broad-sp ectrum infection. EB/MODL Voice ID: [id number] Report ID: [id number]
== END 2020-11-30 14:40 | disposition home or self-care (01) | DRG 637 ==
LOC: ER 22:18 → ERHOLD 11-26 02:06 → 2ND 11-27 14:19
PROVIDERS: ADMIT Hospitalist; ATTEND Hospitalist
PROC: 0HQ1XZZ Repair Face Skin, External Approach (ICD-10-PCS; 2020-11-26)
PROC: 5A1D70Z Performance of Urinary Filtration, Intermittent, Less than 6 Hours Per Day (ICD-10-PCS; principal; 2020-11-28)
DX: E11.649 Type 2 diabetes mellitus with hypoglycemia without coma (principal); G93.41 Metabolic encephalopathy; I12.0 Hypertensive chronic kidney disease with stage 5 chronic kidney disease or end stage renal disease; L03.211 Cellulitis of face; E87.1 Hypo-osmolality and hyponatremia; L02.01 Cutaneous abscess of face; N18.6 End stage renal disease; N25.81 Secondary hyperparathyroidism of renal origin; E11.40 Type 2 diabetes mellitus with diabetic neuropathy, unspecified; E11.22 Type 2 diabetes mellitus with diabetic chronic kidney disease; E87.70 Fluid overload, unspecified; E87.5 Hyperkalemia; D63.1 Anemia in chronic kidney disease; S00.83XA Contusion of other part of head, initial encounter; B95.62 Methicillin resistant Staphylococcus aureus infection as the cause of diseases classified elsewhere; R63.0 Anorexia; Z95.828 Presence of other vascular implants and grafts; Z99.2 Dependence on renal dialysis; Z68.31 Body mass index [BMI] 31.0-31.9, adult; Z79.899 Other long term (current) drug therapy; Z20.822 Contact with and (suspected) exposure to COVID-19
CPT/HCPCS: 36415; 70450; 70486; 71045; 76377; 80048; 80053; 80061; 80069; 80076; 80202; 82140; 82947; 83525; 83735; 84100; 84439; 84443; 84484; 85025; 87040; 90935; 97161; 99284; 99285; J0360; J0692; J1644; J2405; J3370; J7799; U0003

== ENCOUNTER 2021-01-01 12:30 | Inpatient (IN) | payer OTHER ==
--- OUTSIDE RECORDS SUMMARY | 2021-01-01 12:46 | XMS REPORT | Continuity of Care Document ---
:1960 Author Organization [facility] t Address [address] [place] [address] Dr. Rodriguez [address] [place] [id number] Care Team Providers Name Role Phone Forrest Dewitt MD Attending Clinician Brien ALBA Attending Clinician Bulmaro Hong Attending Clinician Hugo Attending Clinician Edward Payne Attending Clinician Glenroy Choi Attending Clinician Manolo Faulkner Attending Clinician Josué Attending Clinician Lillie Attending Clinician Charles Attending Clinician Javier Cha Attending Clinician Elidia Aldrich Attending Clinician Nasrin Dexter Attending Clinician Burak Attending Clinician Jesus Hector Jr Attending Clinician Brien ALBA Admitting Clinician Bulmaro Hong Admitting Clinician Josué Admitting Clinician Lillie Admitting Clinician Charles Admitting Clinician Javier Cha Admitting Clinician Nasrin Dexter Admitting Clinician Burak Admitting Clinician Problems Condition Condition Condition Status Onset Resolution Last Treating Co mments Source Name Details Category Date Date Treatment Clinician Date DR SENT - Diagnosis Active 2019-102020-08-06 Memoria FLUID 0- 16:50:[address] SENT 00:00: Mercedez nn - FLUID 00 OVERLOAD Active 08/06/2020 [facility] [place] ESRD Diagnosis Active 2019-102020-08-12 Mem oria NEEDING 08:39:00 l DIALYSIS, ESRD 00:00: [place] VOLUME NEEDING 00 OVERLOAD DIALYSIS, VOLUME OVERLOAD Active 08/06/2020 [facility] DIALYSIS Diagnosis Active 2019-102020-07-24 M emoria ISSUE 08:37:00 l DIALYSIS 00:00: Rafael n ISSUE 00 Active 07/24/2020 [facility] [place] PERITONITI Diagnosis Active 2020-07-09 Memoria S, 07-06 16:32:00 l DIABETES, 00:00: [place] ESRD ON PERITONITI 00 DIALYSIS S, DIABETES, ESRD ON DIALYSIS Active 07/06/2020 [facility] ABD PAIN Diagnosis Active 2020-07-06 M emoria 07-06 07:06:00 l ABD PAIN 00:00: Rafael n 00 Active 07/06/2020 [facility] [place] WEAKNESS Diagnosis Active 2020-08-04 M emoria AND 05-21 11:45:00 l SWELLING WEAKNESS 00:00: Herm hannah AND 00 SWELLING Active 05/21/2020 [facility] NAUSEA/VOM Diagnosis Active 2020-03-23 Memoria ITING 03-23 01:05:00 l 00:00: [place] NAUSEA/VOM 00 ITING Active 03/23/2020 [facility] FEVER Diagnosis Active 2020-02-26 Mem oria 02-02 11:06:00 l FEVER 00:00: [place] 00 Active 02/03/2020 [facility] AMS, Diagnosis Active 2019-10-31 Mem oria HYPONATREM - 11:04:00 l IA AMS, 00:00: [place] HYPONATREM 00 IA Active 0 [facility] NUMBNESS Diagnosis Active 2019-10-28 M emoria 10-28 20:30:00 l NUMBNESS 00:00: Rafael n 00 Active 10/28/2019 [facility] AMS Diagnosis Active 2018-102019-09-23 Mem oria 1- 21:56:00 l AMS 10:52: [place] 00 Active 08/14/2019 [facility] DIZZINES, Diagnosis Active 2019-04-15 Memoria PNEUMONIA, 04-05 21:55:00 l END STAGE 00:00: [place] RENAL DIS DIZZINES, 00 PNEUMONIA, END STAGE RENAL DIS Active 04/05/2019 [facility] PNA Diagnosis Active 2019-04-05 Mem oria 04-05 20:15:00 l PNA 00:00: [place] 00 Active 04/05/2019 [facility] ESRD Diagnosis Active 2017-102018-12-14 Mem oria NEEDING 0-13 09:50:00 l DIALYSIS, ESRD 00:00: [place] ACUTE NEEDING 00 PULMONARY DIALYSIS, E ACUTE PULMONARY E Active 07/21/[address] Diagnosis Active 2017-102018-07-21 Annie oria REFERRAL 0-13 21:30:00 l 00:00: [place] REFERRAL 00 Active 07/21/2018 [facility] BUSCH Diagnosis Active 2017-102018-07-20 Annie oria REFFERAL 0-12 20:08:00 l 00:00: [place] REFFERAL 00 Active 07/20/2018 [facility] Diagnosis Active 2018-07-31 M emoria NOT USE 05-23 12:39:00 l FOR RENAL/DO 06:00: Rafael n CHARGES NOT USE 00 F/C NOTES FOR O CHARGES F/C NOTES O Active 05/23/2018 [facility] NEW Diagnosis Active 2018-05-23 Mem oria EVALUATION 05-09 10:28:00 l NEW 00:00: [place] EVALUATION 00 Active 05/09/2018 [facility] HYPERTENSI Diagnosis Active 2018-04-16 Memoria VE 04-14 13:14:00 l URGENCY, 08:00: [place] CHEST PAIN HYPERTENSI 00 VE URGENCY, CHEST PAIN Active 04/14/2018 [facility] CHEST PAIN Diagnosis Active 2018-04-15 Memoria 7 01:42:00 l CHEST 08:00: [place] PAIN 00 Active 04/14/2018 [facility] ACUTE Diagnosis Active 2018-03-19 Mem oria DYSPNEA 03-16 13:39:00 l ACUTE 00:00: [place] DYSPNEA 00 Active 03/16/2018 [facility] [place] WEAKNESS Diagnosis Active 2018-03-17 M emoria 03-16 05:41:00 l WEAKNESS 00:00: Rafael n 00 Active 03/16/2018 [facility] [place] IN NEED OF Diagnosis Active 2018-01-22 Memoria DIALYSIS 01-22 18:51:00 l IN NEED 00:00: [place] OF 00 DIALYSIS Active 01/22/2018 [facility] [place] SOB Diagnosis Active 2017-12-15 Mem oria 12-15 07:37:00 l SOB 00:00: [place] 00 Active 12/15/2017 [facility] [place] ACUTE Diagnosis Active 2017-12-15 Mem oria RENAL 12-15 10:05:00 l FAILURE, ACUTE 00:00: [place] FLUID RENAL 00 OVERLOAD, FAILURE, CHF FLUID OVERLOAD, CHF Active 12/15/2017 [facility] [place] ACUTE Diagnosis Active 2017-12-15 Mem oria KIDNEY 10:05:00 l FAILURE, ACUTE [place] UNSPECIFIE KIDNEY D FAILURE, UNSPECIFIE D Active [facility] [place] FLUID Diagnosis Active 2020-08-12 Mem oria OVERLOAD, 08:39:00 l UNSPECIFIE FLUID [place] nn D OVERLOAD, UNSPECIFIE D Active [facility] [place] HEART Diagnosis Active 2017-12-15 Mem oria FAILURE, 10:05:00 l UNSPECIFIE HEART [place] nn D FAILURE, UNSPECIFIE D Active [facility] [place] DYSPNEA, Diagnosis Active 2018-03-19 M emoria UNSPECIFIE 13:39:00 l D DYSPNEA, Rafael n UNSPECIFIE D Active [facility] [place] HYPO-OSMOL Diagnosis Active 2019-10-31 Memoria ALITY AND 11:04:00 l HYPONATREM Rafael n IA HYPO-OSMOL ALITY AND HYPONATREM IA Active [facility] PERITONITI Diagnosis Active 2020-07-09 Memoria S, 16:32:00 l UNSPECIFIE Rafael n D PERITONITI S, UNSPECIFIE D Active [facility] [place] TYPE 2 Diagnosis Active 2020-07-09 Mem oria DIABETES 16:32:00 l MELLITUS TYPE 2 Rafael n WITHOUT DIABETES COMPLIC MELLITUS WITHOUT COMPLIC Active [facility] SINGLE Diagnosis Active 2020-08-09 [facility] oria LIVEBORN 07:58:00 l , SINGLE [place] DELIVERED LIVEBORN VAGINA , DELIVERED VAGINA Active [facility] Type 2 Problem 2019-02-10 Memor ia diabetes 12:48:45 l mellitus Type 2 Rafael n with diabetes diabetic mellitus chronic with kidney diabetic disease chronic kidney disease 02/10/2019 [facility] Hypertensi Problem 2019-02-10 M emoria ve chronic 12:48:45 l kidney [place] disease Hypertensi with stage ve chronic 5 chronic kidney kidney disease disease or with stage end stage 5 chronic renal kidney disease disease or end stage renal disease 02/10/2019 [facility] End stage Problem 2020-08-14 Me moria renal 23:33:32 l disease End [place] stage renal disease 08/14/2020 [facility] Dependence Problem 2019-02-10 emoria on renal 12:48:45 l dialysis [place] Dependence on renal dialysis 02/10/2019 [facility] Anxiety Problem 2019-02-06 Kojo lynn disorder, 14:42:13 l unspecifie Anxiety Her meeks d disorder, unspecifie d 02/06/2019 [facility] Sleep Problem 2019-02-10 Memor ia apnea, 12:48:45 l unspecifie Sleep Mercedez nn d apnea, unspecifie d 02/10/2019 [facility] Other long Problem 2019-02-06 M emoria term 14:42:13 l (current) Other Rafael n drug usp therapy (current) drug therapy 02/06/2019 [facility] Pericardia Problem 2019-02-10 M emoria l effusion 12:48:45 l (noninflam Rafael n matory) Pericardia l effusion (noninflam matory) 02/10/2019 [facility] Nausea Problem 2019-02-06 Memor ia 14:42:13 l Nausea [place] 02/06/2019 [facility] Other Problem 2019-02-06 Memor ia symptoms 14:42:13 l and signs Other Rafael n concerning symptoms food and and signs fluid concerning intake food and fluid intake 02/06/2019 [facility] Pneumonia, Problem 2019-04-10 M emoria unspecifie 22:02:39 l d organism Rafael n Pneumonia, unspecifie d organism 04/10/2019 [facility] Dyspnea, Problem 2018-03-23 Mem oria unspecifie 01:53:56 l d Dyspnea, Rafael n unspecifie d 03/23/2018 [facility] Acute Problem 2019-02-10 Memor ia pulmonary 12:48:45 l edema Acute [place] pulmonary edema 02/10/2019 [facility] Acute Problem 2019-02-10 Memor ia kidney 12:48:45 l failure, Acute [place] unspecifie kidney d failure, unspecifie d 02/10/2019 [facility] Fluid Problem 2019-02-10 Memor ia overload, 12:48:45 l unspecifie Fluid [place] nn d overload, unspecifie d 02/10/2019 [facility] Obesity, Problem 2019-02-10 Mem oria unspecifie 12:48:45 l d Obesity, Rafael n unspecifie d 02/10/2019 [facility] Body mass Problem 2019-02-10 Me moria index 12:48:45 l (BMI) Body [place] 33.0-33.9, mass index adult (BMI) 33.0-33.9, adult 02/10/2019 [facility] Chronic Problem 2019-02-10 Kojo lynn obstructiv 12:48:45 l e Chronic [place] pulmonary obstructiv disease, e unspecifie pulmonary d disease, unspecifie d 02/10/2019 [facility] Hypocalcem Problem 2018-03-28 M emoria ia 12:58:31 l [place] Hypocalcem ia 03/28/2018 [facility] Other Problem 2018-03-28 Memor ia disorders 12:58:31 l of Other [place] phosphorus disorders metabolism of phosphorus metabolism 03/28/2018 [facility] Hypo-osmol Problem 2018-03-28 M emoria ality and 12:58:31 l hyponatrem Rafael n ia Hypo-osmol ality and hyponatrem ia 03/28/2018 [facility] Iron Problem 2018-03-28 Memor ia deficiency 12:58:31 l anemia, Iron [place] unspecifie deficiency d anemia, unspecifie d 03/28/2018 [facility] Secondary Problem 2018-03-28 Me moria hyperparat 12:58:31 l hyroidism [place] of 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 03/28/2018 [facility] Acute Problem 2018-03-28 Memor ia diastolic 12:58:31 l (congestiv Acute [place]cedez nn e) heart diastolic failure (congestiv e) heart failure 03/28/2018 [facility] Anemia in Problem 2018-03-28 Me moria other 12:58:31 l chronic Anemia [place] diseases in other classified chronic elsewhere diseases classified elsewhere 03/28/2018 [facility] Atheroscle Problem 2018-03-28 M emoria rosis of 12:58:31 l renal [place] artery Atheroscle rosis of renal artery 03/28/2018 [facility] Obstructiv Problem 2018-03-28 M emoria e sleep 12:58:31 l apnea [place] (adult) Obstructiv (pediatric e sleep ) apnea (adult) (pediatric ) 03/28/2018 [facility] Altered Problem 2019-11-07 Kojo lynn mental 23:47:53 l status, Altered Rafael n unspecifie mental d status, unspecifie d 11/07/2019 [facility] Single Problem 2020-08-10 Memor ia liveborn 09:04:08 l , Single [place] delivered liveborn vaginally , delivered vaginally 08/10/2020 [facility] Anxiety Problem Resolve 2020-08-14 Mem oria (finding) d 23:33:32 l Anxiety [place] (finding) Resolved Problem 08/14/2020 [facility] Diabetes Problem Resolve 2020-08-14 Me moria mellitus d 23:33:32 l (disorder) Diabetes He rmann mellitus (disorder) Resolved Problem 08/14/2020 [facility] Hypertensi Problem Resolve 2020-08-14 Memoria ve d 23:33:32 l disorder, [place] systemic Hypertensi arterial ve (disorder) disorder, systemic arterial (disorder) Resolved Problem 08/14/2020 [facility] Sleep Problem Resolve 2020-08-14 Kojo lynn apnea d 23:33:32 l (finding) Sleep Rafael n apnea (finding) Resolved Problem 08/14/2020 [facility] End stage Problem Active 2020-08-14 Me moria renal 23:33:32 l failure on End Rafael n dialysis stage (disorder) renal failure on dialysis (disorder) Active Problem 08/14/2020 [facility] Pericardia Problem Active 2020-08-14 M emoria l effusion 23:33:32 l (disorder) Rafael n Pericardia l effusion (disorder) Active Problem 08/14/2020 [facility] Simple Problem Active 2020-08-14 Memor ia obesity 23:33:32 l (disorder) Simple Herm hannah obesity (disorder) Active Problem 08/14/2020 [facility] DIZZINESS Diagnosis Active 2019-04-15 Memoria AND 21:55:00 l GIDDINESS [place] DIZZINESS AND GIDDINESS Active [facility] PNEUMONIA, Diagnosis Active 2019-04-15 Memoria UNSPECIFIE 21:55:00 l D ORGANISM Rafael n PNEUMONIA, UNSPECIFIE D ORGANISM Active [facility] END STAGE Diagnosis Active 2020-08-12 Memoria RENAL 08:39:00 l DISEASE END [place] STAGE RENAL DISEASE Active [facility] ALTERED Diagnosis Active 2019-10-31 Me moria MENTAL 11:04:00 l STATUS, ALTERED Rafael n UNSPECIFIE MENTAL D STATUS, UNSPECIFIE D Active [facility] ACUTE Diagnosis Active 2018-12-14 Mem oria PULMONARY 09:50:00 l EDEMA ACUTE [place] PULMONARY EDEMA Active [facility] History of Past Illness Condition Condition Condition Status Onset Resolution Last Treating Co mments Source Name Details Category Date Date Treatment Clinician Date Localized Problem 2019-102020-07-26 2020-07-26 Memoria edema 0-16 21:30:35 21:30:35 l 17:00: [place] Localized 00 edema 07/24/2020 07/26/2020 [facility] Hypokalemi Problem 2019-102020-07-26 2020-07-26 Memoria a 0-16 21:30:35 21:30:35 l 17:00: [place] Hypokalemi 00 a 07/24/2020 07/26/2020 [facility] Type 2 Problem 2020-07-17 2020-07-17 M emoria diabetes 07-06 22:26:03 22:26:03 l mellitus Type 2 17:00: Rafael n without diabetes 00 complicati mellitus ons without complicati ons 07/06/2020 07/17/2020 [facility] Anemia, Problem 2020-05-23 2020-05-23 Memoria unspecifie 05-21 21:26:40 21:26:40 l d Anemia, 17:00: [place] unspecifie 00 d 05/21/2020 05/23/2020 [facility] Constipati Problem 2020-05-23 2020-05-23 Memoria on, 05-21 21:26:40 21:26:40 l unspecifie 17:00: Rafael escalera Constipati 00 on, unspecifie d 05/21/2020 05/23/2020 [facility] Pain in Problem 2020-02-05 2020-02-05 Memoria right hip 02-02 21:56:20 21:56:20 l Pain in 17:00: [place] right hip 00 02/03/2020 02/05/2020 [facility] Fever, Problem 2020-02-05 2020-02-05 M emoria unspecifie 02-02 21:56:20 21:56:20 l d Fever, 17:00: [place] unspecifie 00 d 02/03/2020 02/05/2020 [facility] Unspecifie Problem 2020-02-05 2020-02-05 Memoria d fall, 02-02 21:56:20 21:56:20 l initial 17:00: [place] encounter Unspecifie 00 d fall, initial encounter 02/03/2020 02/05/2020 [facility] Other Problem 2017-102019-02-10 2019-02-10 M emoria specified 12:48:45 12:48:45 l complicati Other 04:09: Mercedez valladares on of specified 04 vascular complicati prosthetic on of devices, vascular implants prosthetic and devices, grafts, implants initial and encounter grafts, initial encounter 07/31/2018 02/10/2019 [facility] Hyperkalem Problem 2017-2019-02-06 2019-02-06 Memoria ia 0-12 14:42:13 14:42:13 l 05:00: [place] Hyperkalem 00 ia 07/20/2018 02/06/2019 [facility] Unspecifie Problem 2017-102019-02-06 2019-02-06 Memoria d 0-12 14:42:13 14:42:13 l complicati 05:00: Rafael cee on of Unspecifie 00 internal d prosthetic complicati device, on of implant internal and graft, prosthetic initial device, encounter implant and graft, initial encounter 07/20/2018 02/06/2019 [facility] Hypertensi Problem 2018-03-28 2018-03-28 Memoria ve heart - 12:58:31 12:58:31 l disease 03:49: [place] with heart Hypertensi 05 failure ve heart disease with heart failure 12/28/2017 03/28/2018 [facility] Chronic Problem 2018-01-25 2018-01-25 Memoria kidney -16 04:46:18 04:46:18 l disease, Chronic 05:00: Mercedez nn unspecifie kidney 00 d disease, unspecifie d 01/22/2018 01/25/2018 [facility] Allergies, Adverse Reactions, Alerts Allergy Allergy Status Severity Reaction(s) Onset Inactive Treating Comm ents Source Name Type Date Date Clinician No Known No Known Active Memori a Medicati Medicati l on on [place] Allergjesusita Allergjesusita s s Social History Social Habit Start Date Stop Date Quantity Comments Source Social History 2019-08-15 2019-08-15 [facility] 14:23:20 14:23:20 Medications Ordered Filled Start Stop Current Ordering Indication Dosage Frequency Signature Comments Components Source Medication Medication Date Date Medication? Clinician (SIG) Name Name fentaNYL 2019-10 No Route: IV, Mem oria (ANES) 10-12 Drug form: l 18:10: INJ, ONCE, Stop date: 08/12/20 12:10:00 NUTRITION TECHNICIAN lidocaine 2019-10 No Route: IV, Me moria (ANES) 10-12 Drug form: l 18:10: INJ, ONCE, Stop date: 08/12/20 12:10:00 NUTRITION TECHNICIAN propofol 2019-10 No Route: IV, Mem oria (ANES) 10-12 Drug form: l 18:10: INJ, ONCE, [place] Stop date: 08/12/20 12:10:00 NUTRITION TECHNICIAN ondansetron 2019-10 No Route: IV, Memoria (ANES) 10-12 Drug form: l 18:10: INJ, ONCE, [place] 00 Stop date: 08/12/20 12:10:00 NUTRITION TECHNICIAN metoclopram 2019-10 No Route: IV, Memoria jeanna (ANES) 10-12 Drug form: l 18:10: INJ, ONCE, Stop date: 08/12/20 12:10:00 NUTRITION TECHNICIAN ceFAZolin 2019-10 No Route: IV, Me moria (ANES) 10-12 Drug form: l 17:50: INJ, ONCE, Stop date: 08/12/20 11:50:00 NUTRITION TECHNICIAN Sodium 2019- No Route: IV, Memor ia Chloride - Total l 0.9% IV 17:14: Volume: [place] (ANES) 500 00 500, Start mL date: 08/12/20 11:14:00 NUTRITION TECHNICIAN, Stop date: 08/12/20 12:14:00 NUTRITION TECHNICIAN Sodium 2019-10 No 500 mL, Memoria Chloride 10-12 Rate: 75 l 0.9% IV 500 16:52: ml/hr, Herm hannah mL 00 Infuse over: 6.7 hr, Route: IV, Dosing Weight 111.182 kg, Total Volume: 500, Start date: 08/12/20 10:52:00 NUTRITION TECHNICIAN, Duration: 1 doses or times, Stop date: 08/12/20 17:33:00 NUTRITION TECHNICIAN, 2.32, m2, 0 Potassium 2019-10 No Notes: Memori a Chloride 10-12 (Same as: l 13:46: K-Dur ) "Do Not Crush" Give with food and full glass of water For patients unable to swallow tablet, dissolve in one half glass of water. Allow about 2 minutes for the tablets to disintegra te. Stir before giving to prepare slurry and administer . Please exclude Patient s with feeding tube less than 14 Romanian (Dobhoff, J-tube etc) and pediatric and patients. Hydralazine 2019-10 No 10 mg, Kojo lynn 10-11 Route: l 21:11: IVP, Q4H, Dosing Weight 111.182, kg, PRN Hypertensi on, Start date: 08/11/20 15:11:00 NUTRITION TECHNICIAN, Duration: 30 day, Stop date: 09/10/20 15:10:00 NUTRITION TECHNICIAN Potassium 2019-1 No Notes: Memori a Chloride - (Same as: l 14:12: K-Dur 20) [place] "Do Not Crush" Give with food and full glass of water For patients unable to swallow tablet, dissolve in one half glass of water. Allow about 2 minutes for the tablets to disintegra te. Stir before giving to prepare slurry and administer . Please exclude Patient s with feeding tube less than 14 [place] (Dobhoff, J-tube etc) and pediatric and patients. epoetin 2019-10 No Notes: Memoria franca 10-10 (Same as: l 15:00: Procrit) epoetin franca 2000 unit/1 ml VL Non-formul heydi For dialysis use only (Epogen) WASTE: F/P - Red; E -Red MEDICATION WASTE Product Size: 2000 mg Product Wasted: ___ mg Ambien 2019-10 No Notes: Memoria 10-10 (Same As: l 04:24: Ambien) [place] Melatonin 3 2019-10 No Notes: Kojo lynn MG Extended 10-10 (Same as: l Release 03:57: Melatonin) Herm hannah Tablet 00 Ambien 2019-10 No PO, Memoria 10-10 Bedtime, 0 l 02:55: Refill(s) Zolpidem 2019-10 Yes 10 mg = 1 Kojo lynn tartrate 10 10-10 tab, PO, l MG Oral 02:55: Bedtime, Rafael n Tablet 00 PRN for [Ambien] sleep, 0 Refill(s) heparin 2019-10 No 10,000 Memoria 10-09 unit, 10 l 15:10: mL, Route: DIALYSIS, Drug form: INJ, ONCALL, Dosing Weight 111.182, kg, PRN Dialysis, Priority: STAT, Start date: 08/09/20 9:10:00 NUTRITION TECHNICIAN, Duration: 1 doses or times, Stop date: Limited # of times, 0 tramadol 2019-10 No Notes: Not Mem oria hydrochlori 10-09 to exceed l de 50 MG 05:16: 400mg/day. Her meeks Oral Tablet 00 (Same As: Ultram) epoetin 2019-10 No Notes: Memoria franca 0-31 (Same as: l 14:30: Procrit) epoetin franca 14908 unit/1 ml VL. Non-formul heydi For dialysis use only. (Procrit) WASTE: F/P - Red; E -Red MEDICATION WASTE Product Size: 71516 unit Product Wasted: ___ unit Sodium 2019-10 No 250 mL, Memoria Chloride 0-31 Rate: To l 0.9% 14:13: prime line [place] (titrate) 00 and flush 250 mL remaining blood products., Dosing Weight 111.182, kg, Route: IV, Total Volume: 250, Priority: Routine, Start Date: 08/08/20 9:13:00 CDT, Duration: 1 day, Stop date: 08/09/20 9:12:00 NUTRITION TECHNICIAN, Replace Every: 24 hr, 0 Amlodipine 2019-10 No 1 cap, Memor ia 10 MG / 0-31 Route: PO, l Benazepril 14:00: Drug Form: H ermann hydrochlori 00 CAP, de 20 MG Dosing Oral Weight Capsule 111.182, kg, Daily, Start date: 08/08/20 9:00:00 CDT, Duration: 30 day, Stop date: 09/06/20 9:00:00 NUTRITION TECHNICIAN carvedilol 2019-10 No 12.5 mg, Mem oria 0-31 Route: PO, l 14:00: Drug form: [place] 00 TAB, Q12H, Dosing Weight 111.182, kg, Start date: 08/08/20 9:00:00 CDT, Duration: 30 day, Stop date: 09/06/20 21:00:00 NUTRITION TECHNICIAN amLODIPine 2019-10 No Notes: Memor ia 0-31 (Same as: l 14:00: Norvasc) [place] 00 lisinopril 2019-10 No Notes: Memor ia 0-31 (Same as: l 14:00: Prinivil, [place] Zestril) Dilaudid 2019-10 No Notes: Memoria 0-31 Same as: l 13:46: Dilaudid Epogen 2019-10 No 11,000 Memoria 0-31 unit, l 13:01: Route: [place] 00 SUB-Q, Drug form: INJ, Q-M-W-F, Dosing Weight 111.182, kg, Priority: NOW, Start date: 08/08/20 8:01:00 CDT, Duration: 30 day, Stop date: 09/04/20 9:00:00 NUTRITION TECHNICIAN Morphine 2019-10 No Notes: Memoria 0-31 (Same l 10:27: as:MORPhin [place] 00 e Sulfate) Morphine 2019-10 No Notes: Memoria 0-31 (Same l 01:44: as:MORPhin [place] e Sulfate) normal 2019-10 No 2,000 mL, Memori a saline 0.9% 0-30 Rate: 100 l IV 2,000 mL 22:22: ml/hr, Herm hannah 00 Infuse over: 20 hr, Route: IV, Dosing Weight 111.182 kg, Total Volume: 2,000, Start date: 08/07/20 17:22:00 CDT, Duration: 30 day, Stop date: 09/06/20 17:21:00 NUTRITION TECHNICIAN, 2.32, m2, 0 Lasix 2019-10 No 80 mg, Memoria 0-30 Route: l 13:00: IVP, Drug form: INJ, BID Diuretic, Dosing Weight 117.002, kg, Start date: 08/07/20 8:00:00 CDT, Duration: 30 day, Stop date: 09/05/20 16:00:00 NUTRITION TECHNICIAN Magnesium 2019-10 No Notes: Memori a Sulfate 0-30 WASTE: F/P l 12:58: - Sink; E [place] - [facility] Trash Bin Potassium 2019-10 No Notes: Memori a Chloride 0-30 (Same as: l 12:58: K-Dur 20) [place] 00 "Do Not Crush" Give with food and full glass of water For patients unable to swallow tablet, dissolve in one half glass of water. Allow about 2 minutes for the tablets to disintegra te. Stir before giving to prepare slurry and administer . Please exclude Patient s with feeding tube less than 14 Romanian (Dobhoff, J-tube etc) and pediatric and patients. Potassium 2019-10 No Notes: Memori a Chloride 0-30 Infuse at l 11:00: a rate of [place] 00 10 mEq/hr. (Same as: KCL) normal 2019-10 No 250 mL, Memoria saline 0.9% 0-30 Rate: 50 l IV 250 mL 10:38: ml/hr, Rafael n 00 Infuse over: 5 hr, Route: IV, Dosing Weight 111.182 kg, Total Volume: 250, Start date: 08/07/20 5:38:00 CDT, Duration: 6 hr, Stop date: 08/07/20 11:37:00 CDT, 2.32, m2, 0 normal 2019-10 No 250 mL, Memoria saline 0.9% 0-30 Rate: 50 l IV 250 mL 10:37: ml/hr, Rafael n 00 Infuse over: 5 hr, Route: IV, Dosing Weight 111.182 kg, Total Volume: 250, Start date: 08/07/20 5:37:00 CDT, Duration: 30 day, Stop date: 09/06/20 5:36:00 NUTRITION TECHNICIAN, 2.32, m2 Hydralazine 2019-10 No Notes: Kojo lynn Hydrochlori 0-30 (Same as: l de 50 MG 06:50: Apresoline Her meeks Oral Tablet 00 ) May interfere w/enteral feedings Take With Food. Ambien 2019-10 No Notes: Memoria 0-30 (Same As: l 05:20: Ambien) [place] 00 heparin 2019-10 No Notes: Memoria 0-30 porcine l 05:00: heparin [place] 00 Lasix 2019-10 No Notes: Memoria 0-30 (Same as: l 01:32: Lasix) [place] 00 MEDICATION WASTE Product Size: 40 mg Product Wasted: ___ mg Ondansetron 2019-10 No Notes: Kojo lynn 0-30 (Same as: l 01:31: Zofran) [place] 00 MEDICATION WASTE Product Size: 4 mg Product Wasted: ___ mg Acetaminoph 2019-10 No Notes: Do M emoria en 325 MG / 0-30 not exceed l Hydrocodone 01:31: 4gm/day of [place] Bitartrate 00 acetaminop 10 MG Oral hen. Tablet (Same as: [Sunman Sunman 10/325] 325/10) Acetaminoph 2019-10 No Notes: Kojo lynn en 325 MG / 0-30 (Same as: l Hydrocodone 01:31: Sunman [place] nn Bitartrate 00 325/5) Do 5 MG Oral not exceed Tablet 4gm/day of [Sunman acetaminop 5/325] hen. Dilaudid 2019-10 No 1 mg, Memoria 0-30 Route: l 01:16: IVP, ONCE, Dosing Weight 117.002, kg, Priority: STAT, Start date: 08/06/20 20:16:00 CDT, Stop date: 08/06/20 20:16:00 CDT Dextrose 2019- No 12.5 gm, Memor ia 50% Syringe 0-30 25 mL, l (D50W) 01:09: Route: IVP, Drug Form: INJ, Dosing Weight 117.002, kg, PRN, PRN Blood Glucose Results, Start date: 08/06/20 20:09:00 CDT, Duration: 30 day, Stop date: 09/05/20 19:08:00 NUTRITION TECHNICIAN, 0 Glucagon 2019-10 No 1 mg, Memoria 0-30 Route: IM, l 01:09: Drug form: PDR/INJ, PRN, Dosing Weight 117.002, kg, PRN Blood Glucose Results, Start date: 08/06/20 20:09:00 CDT, Duration: 30 day, Stop date: 09/05/20 19:08:00 NUTRITION TECHNICIAN, 0 Magnesium 2019- No Notes: Memori a Sulfate 0-30 WASTE: F/P l 00:44: - Sink; E - Municipal Trash Bin Potassium 2019-10 No Notes: Memori a Chloride 0-30 (Same as: l 00:44: K-Dur 20) "Do Not Crush" Give with food and full glass of water For patients unable to swallow tablet, dissolve in one half glass of water. Allow about 2 minutes for the tablets to disintegra te. Stir before giving to prepare slurry and administer . Please exclude Patient s with feeding tube less than 14 Romanian (Dobhoff, J-tube etc) and pediatric and patients. Dilaudid 2019-10 No 1 mg, Memoria 0-29 Route: l 23:27: IVP, ONCE, Dosing Weight 117.002, kg, Priority: STAT, Start date: 08/06/20 18:27:00 CDT, Stop date: 08/06/20 18:27:00 CDT Potassium 2019- No 40 mEq, Memor ia Chloride 0-29 Route: PO, l 22:56: Drug form: ERTAB, ONCE, Dosing Weight 117.002, kg, Priority: STAT, Start date: 08/06/20 17:56:00 CDT, Stop date: 08/06/20 17:56:00 CDT Morphine 2019-10 No 4 mg, Memoria 0-29 Route: l 22:44: IVP, ONCE, [place] 00 Dosing Weight 117.002, kg, Priority: STAT, Start date: 08/06/20 17:44:00 CDT, Stop date: 08/06/20 17:44:00 CDT Zofran 2019-10 No 4 mg, Memoria 0-29 Route: l 22:44: IVP, Drug [place] 00 form: INJ, ONCE, Dosing Weight 117.002, kg, Priority: STAT, Start date: 08/06/20 17:44:00 CDT, Stop date: 08/06/20 17:44:00 CDT potassium 2019-10 Yes 20 mEq = 1 Me moria chloride 20 0-16 tab, PO, l mEq oral 15:32: BID, # 4 [place] nn tablet, 00 tab, 0 extended Refill(s) release (KCL) Potassium 2019-10 No 40 mEq, 15 Me moria Chloride 0-16 mL, Route: l 1.33 MEQ/ML 14:59: PO, Drug He rmann Oral 00 form: LIQ, Solution ONCE, Dosing Weight 111.364, kg, Priority: STAT, Start date: 07/24/20 9:59:00 CDT, Stop date: 07/24/20 9:59:00 CDT Amlodipine 2019-10 Yes 1 cap, PO, M emoria 10 MG / 0-07 Daily, # l Benazepril 17:35: 30 cap, 0 He rmann hydrochlori 00 Refill(s), de 20 MG Pharmacy: [facility], 170.18, cm, 07/06/20 5:14:00 CDT, Height, 105, kg, 07/06/20 5:14:00 CDT, Weight cefdinir 2019-10 Yes 300 mg = 1 Mem oria 300 MG Oral 0-07 cap, PO, l Capsule 17:35: Daily, X 7 Herm hannah 00 day, # 7 cap, 0 Refill(s), Pharmacy: [facility], 170.18, cm, 07/06/20 5:14:00 CDT, Height, 105, kg, 07/06/20 5:14:00 CDT, Weight Metronidazo 2019-10 Yes 500 mg = 1 Memoria le 500 MG 0-07 tab, PO, l Oral Tablet 17:35: Q8H, X 7 He rmann [Flagyl] 00 day, # 21 tab, 0 Refill(s), Pharmacy: [facility] [place], 170.18, cm, 07/06/20 5:14:00 CDT, Height, 105, kg, 07/06/20 5:14:00 CDT, Weight Protonix 2019-10 No Notes: Memoria 0-07 Tablet l 12:30: should not [place] 00 be chewed or crushed. (Same as: Protonix) Potassium 2019-10 No Notes: Memori a Chloride 0-06 (Same as: l 22:47: K-Dur 20) [place] 00 "Do Not Crush" Give with food and full glass of water For patients unable to swallow tablet, dissolve in one half glass of water. Allow about 2 minutes for the tablets to disintegra te. Stir before giving to prepare slurry and administer . Please exclude Patient s with feeding tube less than 14 Romanian (Dobhoff, J-tube etc) and pediatric and patients. Clonidine 2019-10 No Notes: Memori a 0-06 (Same As: l 22:46: Catapres) [place] 00 Sucralfate 2019-10 No Notes: May M emoria 100 MG/ML 0-06 interfere l Oral 18:00: w/enteral [place] Suspension 00 feeds - [Carafate] Take 1 hr before or 2 hr after antacids, dairy pdt, meals & minerals - On empty stomach. sevelamer 2019-10 No Notes: Memori a 0-06 Same as: l 17:00: Renvela [place] 00 Potassium 2019-10 No Notes: Memori a Chloride 0-06 (Same as: l 13:00: K-Dur 20) [place] 00 "Do Not Crush" Give with food and full glass of water For patients unable to swallow tablet, dissolve in one half glass of water. Allow about 2 minutes for the tablets to disintegra te. Stir before giving to prepare slurry and administer . Please exclude Patient s with feeding tube less than 14 Romanian (Dobhoff, J-tube etc) and pediatric and patients. Ceftriaxone 2019-10 No Notes: Kojo lynn 0-05 (Same As: l 23:00: Rocephin). [place] 00 Use with 100 mL NS and infuse over 30 min MEDICATION WASTE Product Size: 1000 mg Product Wasted: ___ mg Bentyl 2019-10 No Notes: Memoria 0-05 (Same as: l 22:00: Bentyl) [place] 00 Potassium 2019-10 No Notes: Memori a Chloride 0-05 (Same as: l 12:44: K-Dur 20) [place] "Do Not Crush" Give with food and full glass of water For patients unable to swallow tablet, dissolve in one half glass of water. Allow about 2 minutes for the tablets to disintegra te. Stir before giving to prepare slurry and administer . Please exclude Patient s with feeding tube less than 14 Romanian (Dobhoff, J-tube etc) and pediatric and patients. vancomycin 2019-10 No Notes: Memor ia + Sodium 0-04 TIME l Chloride 23:00: CRITICAL [place] nn 0.9% IV 100 00 MEDICATION mL (Same As: Vancocin) For adult patients only: Round to nearest 250 mg per Medical Staff approval Potassium 2019-10 No Notes: Memori a Chloride 0-04 (Same as: l 15:16: K-Dur 20) [place] "Do Not Crush" Give with food and full glass of water For patients unable to swallow tablet, dissolve in one half glass of water. Allow about 2 minutes for the tablets to disintegra te. Stir before giving to prepare slurry and administer . Please exclude Patient s with feeding tube less than 14 Romanian (Dobhoff, J-tube etc) and pediatric and patients. Flagyl 2019-10 No Notes: Memoria 0-03 (Same as: l 23:00: Flagyl) [place] Avoid alcohol. Potassium 2019-10 No Notes: Memori a Chloride 0-03 (Same as: l 16:13: K-Dur 20) [place] 00 "Do Not Crush" Give with food and full glass of water For patients unable to swallow tablet, dissolve in one half glass of water. Allow about 2 minutes for the tablets to disintegra te. Stir before giving to prepare slurry and administer . Please exclude Patient s with feeding tube less than 14 Romanian (Dobhoff, J-tube etc) and pediatric and patients. vancomycin 2019-10 No Notes: Memor ia + Sodium 0-02 TIME l Chloride 18:00: CRITICAL [place] nn 0.9% IV 100 00 MEDICATION mL (Same As: Vancocin) For adult patients only: Round to nearest 250 mg per Medical Staff approval Zofran 2019-10 No Notes: Memoria 0-01 (Same as: l 19:33: Zofran) [place] 00 Dextrose 2019-10 No 12.5 gm, Memor ia 50% Syringe 0-01 25 mL, l (D50W) 19:27: Route: [place] 00 IVP, Drug Form: INJ, Dosing Weight 105, kg, PRN, PRN Blood Glucose Results, Start date: 07/09/20 14:27:00 CDT, Duration: 30 day, Stop date: 08/08/20 14:26:00 CDT, 0 Glucagon 2019-10 No 1 mg, Memoria 0-01 Route: IM, l 19:27: Drug form: [place] 00 PDR/INJ, PRN, Dosing Weight 105, kg, PRN Blood Glucose Results, Start date: 07/09/20 14:27:00 CDT, Duration: 30 day, Stop date: 08/08/20 14:26:00 CDT, 0 Insulin 2019-10 No Notes: Memoria Lispro 0-01 (Same as: l 19:27: Humalog) Roll in palms of hands gently; Do not shake vigorously . WASTE: F/P - Black; E - Municipal Trash Bin Stable for 28 days at room temperatur e. Expires in days from ____Date Potassium 2019-10 No Notes: Memori a Chloride 0-01 (Same as: l 15:51: K-Dur 20) "Do Not Crush" Give with food and full glass of water For patients unable to swallow tablet, dissolve in one half glass of water. Allow about 2 minutes for the tablets to disintegra te. Stir before giving to prepare slurry and administer . Please exclude Patient s with feeding tube less than 14 Romanian (Dobhoff, J-tube etc) and pediatric and patients. vancomycin No Notes: Memor ia + Sodium 9-30 TIME l Chloride 21:00: CRITICAL [place] nn 0.9% IV 100 00 MEDICATION mL (Same As: Vancocin) For adult patients only: Round to nearest 250 mg per Medical Staff approval Potassium No Notes: Memori a Chloride 07-08 (Same as: l 13:16: K-Dur 20) "Do Not Crush" Give with food and full glass of water For patients unable to swallow tablet, dissolve in one half glass of water. Allow about 2 minutes for the tablets to disintegra te. Stir before giving to prepare slurry and administer . Please exclude Patient s with feeding tube less than 14 Romanian (Dobhoff, J-tube etc) and pediatric and patients. Tylenol No Notes: Do Memor ia 07-07 not exceed l 15:39: 4 gm/day. [place] 00 (Same as: Tylenol) Roxicodone No Notes: Memor ia 07-07 (Same as: l 15:38: Roxicodone ) Acetaminoph No 1 tab, Kojo lynn en 325 MG / 07-07 Route: PO, l Oxycodone 15:33: Drug Form: Jarad adry Hydrochlori 00 TAB, de 5 MG Dosing Oral Tablet Weight [Percocet 105, kg, 5/325] Q6H, PRN Pain Score 7-10, Start date: 07/07/20 10:33:00 CDT, Duration: 30 day, Stop date: 08/06/20 10:32:00 CDT Hydralazine No Notes: Kojo lynn 07-07 (Same as: l 15:31: Apresoline ) May interfere w/enteral feedings. Take With Food Miralax No Notes: Memoria 07-07 Dissolve l 14:00: in 8 oz of water or juice. (Same as: Miralax) cefepime No Notes: Memoria 07-07 (Same As: l 14:00: Maxipime) MEDICATION WASTE Product Size: 1000 mg Product Wasted: ___ mg Amlodipine No Notes: Memor ia 07-07 (Same as: l 14:00: Norvasc) enalapril No Notes: Memori a 07-07 (Same as: l 14:00: Vasotec) Potassium No Notes: Memori a Chloride 07-07 (Same as: l 13:09: K-Dur 20) [place] 00 "Do Not Crush" Give with food and full glass of water For patients unable to swallow tablet, dissolve in one half glass of water. Allow about 2 minutes for the tablets to disintegra te. Stir before giving to prepare slurry and administer . Please exclude Patient s with feeding tube less than 14 Romanian (Dobhoff, J-tube etc) and pediatric and patients. Epogen 0 No Notes: Memoria 07-07 Same as: l 13:08: Retacrit) [place] epoetin franca-epbx 42581 unit/1 ml VL. WASTE: F/P - Red; E Red MEDICATION WASTE Product Size: 42852 unit Product Wasted: ___ unit potassium No Notes: Memori a chloride 20 07-07 (Same as: l mEq oral 10:45: K-Dur 20) Herm hannah tablet, 00 "Do Not extended Crush" release Give with (KCL) food and full glass of water For patients unable to swallow tablet, dissolve in one half glass of water. Allow about 2 minutes for the tablets to disintegra te. Stir before giving to prepare slurry and administer . Please exclude Patient s with feeding tube less than 14 Romanian (Dobhoff, J-tube etc) and pediatric and patients. carvedilol No Notes: Memor ia 07-07 Give with l 02:00: food. [place] (Same As: Coreg) tamsulosin No Notes: Memor ia 07-07 (Same As: l 02:00: Flomax) [place] "Do Not Crush" ferric Yes See Memoria citrate 07-06 Instructio l 1000 MG 21:49: ns, 210 PO Herm hannah Oral Tablet 00 TAKE 2 [Auryxia] TABS TID WITH MEALS AND 1 TAB TWIC A DAY WITH SNACKS, 0 Refill(s) heparin 0 No Notes: Memoria sodium, 07-06 porcine l porcine 21:00: heparin [place] 2500 UNT/ML 00 Injectable Solution Hydralazine No Notes: Kojo lynn Hydrochlori 07-06 (Same as: l de 25 MG 21:00: Apresoline Her meeks Oral Tablet 00 ) May interfere w/enteral feedings Take With Food Amlodipine 2020-0 No 1 cap, Memor ia 10 MG / 07-06 Route: PO, l Benazepril 18:00: Drug Form: H ermann hydrochlori 00 CAP, de 20 MG Dosing Oral Weight Capsule 105, kg, TID, Start date: 07/06/20 13:00:00 CDT, Duration: 30 day, Stop date: 08/05/20 9:00:00 CDT calcium No Notes: Memoria acetate 667 07-06 Same as l MG Oral 18:00: Phoslo Gel Herm hannah Capsule 00 Cap Hydroxyzine No Notes: Kojo lynn Hydrochlori 07-06 (Same as: l de 25 MG 18:00: Atarax) [place] n Oral Tablet 00 Avoid alcohol. Vancomycin No 2001 mg: Me moria 07-06 infuse l 18:00: over 2.5 [place] 00 hours For adult patients only: Round to nearest 250 mg per Medical Staff approval MEDICATION WASTE Product Size: 1000 mg Product Wasted: ___ mg acetaminoph No Notes: Do M emoria en-codeine 07-06 not exceed l #3 17:42: 4gm/day of [place] acetaminop hen. (Same as: Tylenol with Codeine # 3) Diazepam No Notes: Memoria 07-06 (Same as: l 17:42: Valium) [place] potassium No Notes: Memori a chloride 07-06 (Same as: l 16:00: Potassium [place] 00 Chloride) Hydromorpho No Notes: Kojo lynn ne 07-06 Same as: l 13:57: Dilaudid [place] Acetaminoph No Notes: Do M emoria en 325 MG / 07-06 not exceed l Hydrocodone 13:57: 4gm/day of [place] Bitartrate 00 acetaminop 10 MG Oral hen. Tablet (Same as: [Sunman Sunman 10/325] 325/10) Potassium No 60 mEq, Memor ia Chloride 07-06 Route: PO, l 1.33 MEQ/ML 13:45: ONCE, [place] nn Oral 00 Dosing Solution Weight 105, kg, Start date: 07/06/20 8:45:00 CDT, Stop date: 07/06/20 8:45:00 CDT Hydromorpho 2020-0 No 1 mg, Memor ia ne 07-06 Route: l 12:40: IVP, ONCE, Dosing Weight 105, kg, Priority: STAT, Start date: 07/06/20 7:40:00 CDT, Stop date: 07/06/20 7:40:00 CDT Morphine 2019-0 No 6 mg, Memoria 07-06 Route: l 12:39: IVP, ONCE, Dosing Weight 105, kg, Priority: STAT, Start date: 07/06/20 7:39:00 CDT, Stop date: 07/06/20 7:39:00 CDT cefepime 2019-0 No Notes: Memoria 07-06 (Same As: l 11:05: Maxipime) MEDICATION WASTE Product Size: 1000 mg Product Wasted: ___ mg Vancomycin 2019-0 No 2000 mg: Me moria 07-06 infuse l 11:04: over 2.5 [place] hours For adult patients only: Round to nearest 250 mg per Medical Staff approval MEDICATION WASTE Product Size: 1000 mg Product Wasted: ___ mg Morphine 2019-0 No Notes: Memoria 07-06 (Same l 10:32: as:MORPhin e Sulfate) Acetaminoph 2019-0 No Notes: Do M emoria en 300 MG / 8- not exceed l Codeine 14:43: 4gm/day of Herm acetaminop 30 MG Oral hen. Tablet (Same as: [Tylenol Tylenol with with Codeine #3] Codeine # 3) POLYETHYLEN 2020-0 Yes 17 gm, PO, Memoria E GLYCOL 8-13 Daily, l 3350 142 14:16: take daily Her meeks MG/ML Oral 00 until Solution normal [Miralax] bowel movement dissolve in water or juice, # 255 gm, 0 Refill(s) Miralax 2020-0 No Notes: Memoria 8-13 Dissolve l 13:33: in 8 oz of water or juice. (Same as: Miralax) Morphine 2020-0 No 4 mg, Memoria 6-15 Route: l 13:48: IVP, ONCE, Dosing Weight 104, kg, Priority: STAT, Start date: 03/23/20 8:48:00 CDT, Stop date: 03/23/20 8:48:00 CDT Zofran 2019-0 No 4 mg, Memoria 03-23 Route: l 13:48: IVP, Drug [place] form: INJ, ONCE, Dosing Weight 104, kg, Priority: STAT, Start date: 03/23/20 8:48:00 CDT, Stop date: 03/23/20 8:48:00 CDT Acetaminoph 0 No 1 tab, Kojo lynn en 325 MG / 03-23 Route: PO, l Hydrocodone 10:53: Drug Form: [place] Bitartrate 00 TAB, 5 MG Oral Dosing Tablet Weight [Sunman 104, kg, 5/325] ONCE, STAT, Start date: 03/23/20 5:53:00 CDT, Stop date: 03/23/20 5:53:00 CDT Acetaminoph 2019-0 No Notes: Do M emoria en 325 MG / 03-23 not exceed l Hydrocodone 09:02: 4gm/day of [place] Bitartrate 00 acetaminop 10 MG Oral hen. Tablet (Same as: [Sunman Sunman 10/325] 325/10) Sodium 2019- No 250 mL, Memoria Chloride 03-23 Rate: To l 0.9% 06:23: prime line [place] (titrate) 00 and flush 250 mL remaining blood products., Dosing Weight 104, kg, Route: IV, Total Volume: 250, Priority: Routine, Start Date: 03/23/20 1:23:00 CDT, Duration: 1 day, Stop date: 03/24/20 1:22:00 CDT, Replace Every: 24 hr, 0 Acetaminoph 2019-0 Yes 1 tab, PO, Memoria en 300 MG / -27 Q6H, X 3 l Codeine 22:40: day, # 12 [place] nn Phosphate 00 tab, 0 30 MG Oral Refill(s) Tablet [Tylenol with Codeine #3] Dilaudid 2019-0 No Notes: Memoria 4-27 Same as: l 22:39: Dilaudid [place] 00 Hydralazine 2019-0 No 50 mg, 1 Me moria Hydrochlori -27 tab, l de 50 MG 22:20: Route: PO, Her meeks Oral Tablet 00 Drug form: TAB, ONCE, Dosing Weight 104.545, kg, Start date: 02/03/20 17:20:00 CDT, Stop date: 02/03/20 17:20:00 CDT Zofran No Notes: Memoria 02-02 (Same as: l 20:19: Zofran) [place] 00 MEDICATION WASTE Product Size: 4 mg Product Wasted: ___ mg Morphine No Notes: Memoria 02-02 (Same l 20:18: as:MORPhin e Sulfate) Acetaminoph Yes 1-2 tab, Me moria en 325 MG / 11-05 PO, Q4-6H, l Hydrocodone 20:46: PRN Pain, H ermann Bitartrate 00 X 5 day, # 10 MG Oral 20 tab, 0 Tablet Refill(s), [Sunman Pharmacy: ] [facility] [place] vancomycin No 2001 mg: Me moria 11-04 infuse l 19:00: over 2.5 hours For adult patients only: Round to nearest 250 mg per Medical Staff approval MEDICATION WASTE Product Size: 1000 mg Product Wasted: ___ mg Amlodipine No 1 cap, Memor ia 10 MG / 11-04 Route: PO, l Benazepril 19:00: Drug Form: H ermann hydrochlori 00 CAP, de 20 MG Dosing Oral Weight Capsule 99.091, kg, TID, Start date: 11/04/19 13:00:00 NUTRITION TECHNICIAN, Duration: 30 day, Stop date: 12/04/19 9:00:00 NUTRITION TECHNICIAN amLODIPine No Notes: Memor ia 11-04 (Same as: l 19:00: Norvasc) lisinopril No Notes: Memor ia 11-04 (Same as: l 19:00: Prinivil, Zestril) Amlodipine Yes 1 cap, PO, M emoria 10 MG / 11-04 TID, 0 l Benazepril 16:40: Refill(s) [facility] de 20 MG Oral Capsule Potassium No Notes: Memori a Chloride - (Same as: l 16:23: K-Dur 20) [place] 00 "Do Not Crush" Give with food and full glass of water For patients unable to swallow tablet, dissolve in one half glass of water. Allow about 2 minutes for the tablets to disintegra te. Stir before giving to prepare slurry and administer . Please exclude Patient s with feeding tube less than 14 Romanian (Dobhoff, J-tube etc) and pediatric and patients. epoetin No Notes: Memoria franca 11-04 (Same as: l 15:00: Procrit) [place] 00 epoetin franca 86141 unit/1 ml VL. For dialysis use only. (Procrit) WASTE: F/P - Red; E -Red MEDICATION WASTE Product Size: 92712 unit Product Wasted: ___ unit Lisinopril No Notes: Memor ia 11-04 (Same as: l 14:47: Prinivil, [place] 00 Zestril) Vancomycin No 2001 mg: Me moria 11-04 infuse l 14:40: over 2.5 [place] 00 hours For adult patients only: Round to nearest 250 mg per Medical Staff approval MEDICATION WASTE Product Size: 1000 mg Product Wasted: ___ mg Lasix No Notes: Memoria - (Same as: l 23:00: Lasix) [place] 00 May cause GI upset. Give with food or milk. vancomycin No Notes: Memor ia + Sodium -26 TIME l Chloride 21:00: CRITICAL [place] nn 0.9% IV 100 00 MEDICATION mL (Same As: Vancocin) For adult patients only: Round to nearest 250 mg per Medical Staff approval Potassium No Notes: Memori a Chloride - (Same as: l 15:32: K-Dur 20) [place] 00 "Do Not Crush" Give with food and full glass of water For patients unable to swallow tablet, dissolve in one half glass of water. Allow about 2 minutes for the tablets to disintegra te. Stir before giving to prepare slurry and administer . Please exclude Patient s with feeding tube less than 14 [place] (Dobhoff, J-tube etc) and pediatric and patients. Epogen 2020-0 No Notes: Memoria 1-26 (Same as: l 15:32: Procrit) epoetin franca 35492 unit/1 ml VL. For dialysis use only. (Procrit) WASTE: F/P - Red; E -Red MEDICATION WASTE Product Size: 28857 unit Product Wasted: ___ unit Dilaudid No Notes: Memoria 11-02 Same as: l 18:03: Dilaudid heparin No 10,000 Memoria 1-25 unit, 10 l 02:00: mL, Route: DIALYSIS, Drug form: INJ, ONCALL, Dosing Weight 99.091, kg, Start date: 11/01/19 20:00:00 NUTRITION TECHNICIAN, Duration: 1 doses or times, 0 vancomycin No Notes: Memor ia + Sodium -24 TIME l Chloride 20:00: CRITICAL [place] nn 0.9% IV 100 00 MEDICATION mL (Same As: Vancocin) For adult patients only: Round to nearest 250 mg per Medical Staff approval potassium No Notes: Memori a chloride 11-01 (Same as: l 19:51: K-Dur 20) [place] 00 "Do Not Crush" Give with food and full glass of water For patients unable to swallow tablet, dissolve in one half glass of water. Allow about 2 minutes for the tablets to disintegra te. Stir before giving to prepare slurry and administer . Please exclude Patient s with feeding tube less than 14 [place] (Dobhoff, J-tube etc) and pediatric and patients. Dilaudid No Notes: Memoria - Same as: l 18:47: Dilaudid Potassium No Notes: Memori a Chloride -24 (Same as: l 16:00: K-Dur 20) [place] 00 "Do Not Crush" Give with food and full glass of water For patients unable to swallow tablet, dissolve in one half glass of water. Allow about 2 minutes for the tablets to disintegra te. Stir before giving to prepare slurry and administer . Please exclude Patient s with feeding tube less than 14 [place] (Dobhoff, J-tube etc) and pediatric and patients. heparin No 10,000 Memoria 1-24 unit, 10 l 01:00: mL, Route: DIALYSIS, Drug form: INJ, ONCALL, Dosing Weight 99.091, kg, Start date: 10/31/19 19:00:00 NUTRITION TECHNICIAN, Duration: 1 doses or times, 0 Albuterol 2019-0 No Notes: Memori a 0.833 MG/ML - (Same as: l / 15:09: Duoneb) Ipratropium 00 [place] 0.167 MG/ML Inhalant Solution [DuoNeb] Potassium 2019-0 No Notes: Memori a Chloride -23 (Same as: l 11:58: K-Dur 20) "Do Not Crush" Give with food and full glass of water For patients unable to swallow tablet, dissolve in one half glass of water. Allow about 2 minutes for the tablets to disintegra te. Stir before giving to prepare slurry and administer . Please exclude Patient s with feeding tube less than 14 [place] (Dobhoff, J-tube etc) and pediatric and patients. heparin 0 No 10,000 Memoria -23 unit, 10 l 05:00: mL, Route: DIALYSIS, Drug form: INJ, ONCALL, Dosing Weight 99.091, kg, Start date: 10/30/19 23:00:00 NUTRITION TECHNICIAN, Duration: 1 doses or times, 0 Potassium 2019-0 No Notes: Memori a Chloride -23 (Same as: l 04:05: K-Dur 20) "Do Not Crush" Give with food and full glass of water For patients unable to swallow tablet, dissolve in one half glass of water. Allow about 2 minutes for the tablets to disintegra te. Stir before giving to prepare slurry and administer . Please exclude Patient s with feeding tube less than 14 [place] (Dobhoff, J-tube etc) and pediatric and patients. Tylenol 2019-0 No Notes: Do Memor ia - not exceed l 19:42: 4 gm/day. (Same as: Tylenol) Roxicodone 2019-0 No Notes: Memor ia - (Same as: l 19:41: Roxicodone ) Acetaminoph 2020-0 No 1 tab, Kojo lynn en 325 MG / 10-30 Route: PO, l Oxycodone 19:20: Drug Form: He rmann Hydrochlori 00 TAB, de 5 MG Dosing Oral Tablet Weight [Percocet 99.091, 5/325] kg, Q4H, PRN Pain Score 4-6, Start date: 10/30/19 13:20:00 NUTRITION TECHNICIAN, Duration: 30 day, Stop date: 11/29/19 13:19:00 NUTRITION TECHNICIAN vancomycin 2019-0 No 2000 mg: Me moria + Sodium - infuse l Chloride 18:00: over 2.5 [place] nn 0.9% IV 250 00 hours For mL adult patients only: Round to nearest 250 mg per Medical Staff approval MEDICATION WASTE Product Size: 1000 mg Product Wasted: ___ mg cefepime 2019-0 No Notes: Memoria 10-30 (Same As: l 16:00: Maxipime) MEDICATION WASTE Product Size: 1000 mg Product Wasted: ___ mg Vancomycin 2019-0 No 2000 mg: Me moria - infuse l 16:00: over 2.5 [place] 00 hours For adult patients only: Round to nearest 250 mg per Medical Staff approval MEDICATION WASTE Product Size: 1000 mg Product Wasted: ___ mg NIFEdipine 2019-0 No Notes: Memor ia 90 mg oral 10-30 (Same as: l tablet, 15:00: Adalat [place] extended 00 CC,Procard release ia XL) "Do Not Crush" "Avoid grapefruit and grapefruit juice" Fauzia-Conor 0 No Fauzia-Conor Mem oria oral tablet 10-30 oral l 15:00: tablet, 1 tab, Route: PO, Daily, 10/30/19 9:00:00 NUTRITION TECHNICIAN, Duration: 30 day, Stop date: 11/28/19 9:00:00 NUTRITION TECHNICIAN Nephro-Conor 2019-0 No Notes: Kojo lynn Rx 10-30 (Same as: l 15:00: Nephro-Vit Marlo 00 e Rx and Diatx) Give with food. Epoetin 0 No Notes: Memoria Franca 10-30 (Same as: l 14:39: Procrit) epoetin franca 59732 unit/1 ml VL. For dialysis use only. (Procrit) WASTE: F/P - Red; E -Red MEDICATION WASTE Product Size: 58514 unit Product Wasted: ___ unit Potassium 2019-0 No Notes: Memori a Chloride 10-30 (Same as: l 14:38: K-Dur 20) [place] 00 "Do Not Crush" Give with food and full glass of water For patients unable to swallow tablet, dissolve in one half glass of water. Allow about 2 minutes for the tablets to disintegra te. Stir before giving to prepare slurry and administer . Please exclude Patient s with feeding tube less than 14 Romanian (Dobhoff, J-tube etc) and pediatric and patients. carvedilol 2019-0 No Notes: Memor ia - Give with l 03:00: food. [place] 00 (Same As: Coreg) tamsulosin 2019-0 No Notes: Memor ia 10-30 (Same As: l 03:00: Flomax) [place] 00 "Do Not Crush" Lactulose No Notes: Memori a 667 MG/ML 10-30 (Same l Oral 00:36: as:Chronul [place] Solution 00 ac) Lactulose 2019-0 No Notes: Memori a 10-30 Lactulose l 00:36: 300ml, [place] Water for Irrigation 700ml - total volume = 1000ml tizanidine 2019-0 No Notes: Memor ia 10-29 (Same As: l 22:22: Zanaflex) Hydralazine 2019-0 No Notes: Kojo lynn Hydrochlori 10-29 (Same as: l de 25 MG 22:00: Apresoline Her meeks Oral Tablet 00 ) May interfere w/enteral feedings Take With Food. calcium 2019-0 Yes 2,001 mg = Kojo lynn acetate 667 10-29 3 cap, PO, l MG Oral 21:57: TID, 0 [place] Capsule 00 Refill(s) Diazepam 2019-0 No Notes: Memoria - (Same as: l 21:25: Valium) [place] 00 Hydralazine 2019-0 No Notes: Kojo lynn - (Same as: l 18:50: Apresoline [place] ) Push over 5 minutes acetaminoph 2019-0 No Notes: Do M emoria en-codeine 10-29 not exceed l #3 18:49: 4gm/day of [place] acetaminop hen. (Same as: Tylenol with Codeine # 3) Lasix 2019-0 No Notes: Memoria 10-29 (Same as: l 15:00: Lasix) MEDICATION WASTE Product Size: 40 mg Product Wasted: ___ mg Docusate 2019- No Notes: Memoria 10-29 (Same as: l 15:00: Colace) (Do Not Crush) Potassium No Notes: Memori a Chloride 10-29 (Same as: l 14:55: K-Dur 20) "Do Not Crush" Give with food and full glass of water For patients unable to swallow tablet, dissolve in one half glass of water. Allow about 2 minutes for the tablets to disintegra te. Stir before giving to prepare slurry and administer . Please exclude Patient s with feeding tube less than 14 Romanian (Dobhoff, J-tube etc) and pediatric and patients. Magnesium No Notes: Memori a Sulfate 10-29 WASTE: F/P l 14:55: - Sink; E - [facility] Trash Bin Diazepam 0 Yes 10 mg, PO, Mem oria 10-29 PRN as l 08:31: needed for anxiety, 0 Refill(s) zolpidem 10 0 Yes 10 mg = 1 M emoria mg oral 10-29 tab, PO, l tablet 08:27: Bedtime, PRN as needed for insomnia, 0 Refill(s) Lasix 0 No Notes: Memoria 10-29 (Same as: l 06:55: Lasix) MEDICATION WASTE Product Size: 40 mg Product Wasted: ___ mg Dextrose 2019-0 No 12.5 gm, Memor ia 50% Syringe 10-29 25 mL, l (D50W) 06:50: Route: IVP, Drug Form: INJ, Dosing Weight 90.909, kg, PRN, PRN Blood Glucose Results, Start date: 10/29/19 0:50:00 NUTRITION TECHNICIAN, Duration: 30 day, Stop date: 11/28/19 0:49:00 NUTRITION TECHNICIAN, 0 Glucagon 0 No 1 mg, Memoria 10-29 Route: IM, l 06:50: Drug form: [place] PDR/INJ, PRN, Dosing Weight 90.909, kg, PRN Blood Glucose Results, Start date: 10/29/19 0:50:00 NUTRITION TECHNICIAN, Duration: 30 day, Stop date: 11/28/19 0:49:00 NUTRITION TECHNICIAN, 0 Ondansetron No Notes: Kojo lynn 10-29 (Same as: l 06:50: Zofran) MEDICATION WASTE Product Size: 4 mg Product Wasted: ___ mg Melatonin No Notes: Memori a 10-29 (Same as: l 06:50: Melatonin) Acetaminoph No Notes: Do M emoria en 10-29 not exceed l 06:50: 4 gm/day. (Same as: Tylenol) Albuterol No Notes: SEE Me moria 0.83 MG/ML 10-29 RT l Inhalant 05:31: DOCUMENTAT Her meeks Solution 00 ION (Same as: Proventil) Albuterol No Notes: Memori a 0.833 MG/ML 10-29 (Same as: l / 03:22: Duoneb) Ipratropium 00 [place] 0.167 MG/ML Inhalant Solution [DuoNeb] Albuterol No Notes: SEE Me moria 0.83 MG/ML 10-29 RT l Inhalant 03:22: DOCUMENTAT Her meeks Solution 00 ION (Same as: Proventil) carvedilol 2018-10 Yes 12.5 mg = Me moria 12.5 mg 1-12 1 tab, PO, l oral tablet 17:56: Q12H, # 60 [place] 00 tab, 0 Refill(s), Pharmacy: [facility] Furosemide 2018-10 Yes 80 mg = 2 Me moria 40 MG Oral 1-12 tab, PO, l Tablet 17:56: TID, # 180 [place] 00 tab, 0 Refill(s), Pharmacy: [facility] Hydralazine 2018-10 Yes 50 mg = 2 M emoria Hydrochlori 1-12 tab, PO, l de 25 MG 17:56: Q8H, # 180 Her meeks Oral Tablet 00 tab, 0 Refill(s), Pharmacy: [facility] lisinopril 2018-10 Yes 40 mg = 1 Me moria 40 mg oral 1-12 tab, PO, l tablet 17:56: Daily, # [place] 00 30 tab, 0 Refill(s), Pharmacy: [facility] NIFEdipine 2018-10 Yes 90 mg = 1 Me moria 90 mg oral 1-12 tab, PO, l tablet, 17:56: Daily, # Rafael n extended 00 30 tab, 0 release Refill(s), Pharmacy: [facility] carvedilol 2018-10 No Notes: Memor ia 1-12 Give with l 03:00: food. (Same As: Coreg) NIFEdipine 2018-10 No 90 mg, Memor ia 60 mg oral 1-11 Route: PO, l tablet, 15:00: Drug form: Herm hannah extended 00 ERTAB, release Daily, Dosing Weight 96.364, kg, Start date: 08/19/19 9:00:00 NUTRITION TECHNICIAN, Duration: 30 day, Stop date: 09/17/19 9:00:00 NUTRITION TECHNICIAN, 0 lisinopril 2018-10 No Notes: Memor ia 1-11 (Same as: l 15:00: Prinivil, [place] 00 Zestril) carvedilol 2018-10 No Notes: Memor ia 1-11 Give with l 03:00: food. (Same As: Coreg) Clonidine 2018-10 No Notes: Memori a 1-11 (Same As: l 00:45: Catapres) Clonidine 2018-10 No Notes: Memori a Hydrochlori 1-11 (Same As: l de 0.1 MG 00:44: Catapres) Her meeks Oral Tablet 00 Hydralazine 2018-10 No Notes: Kojo lynn 1-10 (Same as: l 22:00: Apresoline ) May interfere w/enteral feedings Take With Food. Lisinopril 2018-10 No Notes: Memor ia 1-10 (Same as: l 20:11: Prinivil, [place] 00 Zestril) NIFEdipine 2018-10 No Notes: Memor ia 60 mg oral 1-10 (Same as: l tablet, 20:09: Adalat CC, Herm hannah extended 00 Procardia release XL) Give on empty stomach. Take 1 hour before or 2 hours after meal; "Avoid grapefruit and grapefruit juice". Do not crush heparin 2018-10 No 10,000 Memoria 1-10 unit/mL, l 15:29: Route: [place] 00 DIALYSIS, Drug form: INJ, ONCALL, Dosing Weight 96.364, kg, Priority: NOW, Start date: 08/18/19 9:29:00 NUTRITION TECHNICIAN, Duration: 1 doses or times, 0 heparin 2018-10 No 10,000 Memoria 1-09 unit, 10 l 19:00: mL, Route: [place] 00 DIALYSIS, Drug form: INJ, ONCALL, Dosing Weight 96.364, kg, Start date: 08/17/19 13:00:00 NUTRITION TECHNICIAN, Duration: 1 doses or times, 0 Sodium 2018-10 No 1,000 mL, Memori a Chloride -09 1,000 l 0.9% 18:06: ml/hr, [place] (Bolus) IV 00 Infuse Over: 1 hr, Route: IV, 1,000, Drug form: INJ, PRN, Priority: STAT, Dosing Weight 96.364 kg, Start date: 08/17/19 12:06:00 NUTRITION TECHNICIAN, Duration: 30 day, Stop date: 09/16/19 12:05:00 NUTRITION TECHNICIAN, PRN Dialysis, 0 Potassium 2018-10 No Notes: Memori a Chloride 10-16 (Same as: l 15:18: K-Dur 20) "Do Not Crush" Give with food and full glass of water For patients unable to swallow tablet, dissolve in one half glass of water. Allow about 2 minutes for the tablets to disintegra te. Stir before giving to prepare slurry and administer . Please exclude Patient s with feeding tube less than 14 Romanian (Dobhoff, J-tube etc) and pediatric and patients. Seroquel 2018-10 No Notes: Memoria -08 (Same as: l 02:36: SEROquel) Ativan 2018-10 No Notes: Memoria - (Same as: l 21:45: Ativan) Ativan 2018-10 No Notes: Memoria - (Same as: l 19:03: Ativan) amLODIPine 2018-10 No Notes: Memor ia - (Same as: l 15:00: Norvasc) lisinopril 2018-10 No Notes: Memor ia 1-07 (Same as: l 15:00: Prinivil, [place] Zestril) multivitami 2018-10 No Notes: Kojo lynn n 1-07 (Same l 15:00: as:One Tab [place] 00 Daily, Tab-A-Conor + Beta Carotene) Give with food. NIFEdipine 2018-10 No Notes: Memor ia 60 mg oral -07 (Same as: l tablet, 15:00: Adalat CC, Herm hannah extended 00 Procardia release XL) Give on empty stomach. Take 1 hour before or 2 hours after meal; "Avoid grapefruit and grapefruit juice". Do not crush Haldol 2018-10 No Notes: Memoria 1-07 (Same as: l 10:28: Haldol) [place] 00 Haldol 2018-10 No Notes: Memoria 1-07 (Same as: l 10:25: Haldol) [place] 00 heparin 2018-10 No Notes: Memoria 1-07 porcine l 06:00: heparin [place] 00 tamsulosin 2018-10 No Notes: Memor ia 1-07 (Same As: l 03:00: Flomax) "Do Not Crush" Amlodipine 2018-10 No 1 cap, Memor ia 10 MG / -06 Route: PO, l Benazepril 23:00: Drug Form: H ermann hydrochlori 00 CAP, de 20 MG Dosing Oral Weight Capsule 100.17, kg, TID, Start date: 08/14/19 17:00:00 NUTRITION TECHNICIAN, Duration: 30 day, Stop date: 09/13/19 13:00:00 NUTRITION TECHNICIAN carvedilol 2018-10 No Notes: Memor ia 1-06 Give with l 23:00: food. [place] (Same As: Coreg) Furosemide 2018-10 No Notes: Memor ia 1-06 (Same as: l 23:00: Lasix) May cause GI upset. Give with food or milk. Hydralazine 2018-10 No Notes: Kojo lynn 1-06 (Same as: l 23:00: Apresoline ) May interfere w/enteral feedings Take With Food Hydroxyzine 2018-10 No Notes: Kojo lynn Hydrochlori 1-06 (Same as: l de 25 MG 23:00: Atarax) Rafael n Oral Tablet 00 Avoid alcohol. NIFEdipine 2018-10 No Notes: Memor ia 30 mg oral 10-14 (Same as: l tablet, 22:45: Adalat CC, Herm hannah Procardia release XL) Give on empty stomach. Take 1 hour before or 2 hours after meal; "Avoid grapefruit and grapefruit juice". Do not crush Hydralazine 2018-10 No Notes: Kojo lynn 10-14 (Same as: l 21:58: Apresoline ) Push over 5 minutes acetaminoph 2018-10 No Notes: Do M emoria en-codeine 10-14 not exceed l #3 21:51: 4gm/day of acetaminop hen. (Same as: Tylenol with Codeine # 3) Dextrose 2018-10 No 12.5 gm, Memor ia 50% Syringe 10-14 25 mL, l 21:47: Route: IVP, Drug Form: INJ, Dosing Weight 100.17, kg, PRN, PRN Blood Glucose Results, Start date: 08/14/19 15:47:00 NUTRITION TECHNICIAN, Duration: 30 day, Stop date: 09/13/19 15:46:00 NUTRITION TECHNICIAN, 0 Glucagon 2018-10 No 1 mg, Memoria 10-14 Route: IM, l 21:47: Drug form: PDR/INJ, PRN, Dosing Weight 100.17, kg, PRN Blood Glucose Results, Start date: 08/14/19 15:47:00 NUTRITION TECHNICIAN, Duration: 30 day, Stop date: 09/13/19 15:46:00 NUTRITION TECHNICIAN, 0 Ondansetron 2018-10 No Notes: Kojo lynn 10-14 (Same as: l 21:47: Zofran) MEDICATION WASTE Product Size: 4 mg Product Wasted: ___ mg Acetaminoph 2018-10 No Notes: Do M emoria en 10-14 not exceed l 21:47: 4 gm/day. (Same as: Tylenol) acetaminoph 2018-10 Yes 1 tab, PO, Memoria en-codeine 10-14 Q6H, PRN l #3 20:48: Pain Score Mar[place] 00 4-6, 0 Refill(s) Amlodipine 2018-10 No 1 cap, PO, M emoria 10 MG / 1-06 TID, 0 l Benazepril 20:48: Refill(s) He rmann hydrochlori 00 de 20 MG Oral Capsule carvedilol 2018-10 No 6.25 mg = Me moria 6.25 mg 10-14 1 tab, PO, l oral tablet 20:48: BID, # 180 [place] 00 tab, 0 Refill(s) Hydroxyzine 2018-10 Yes 25 mg = 1 M emoria Hydrochlori -06 tab, PO, l de 25 MG 20:48: TID, 0 [place] Oral Tablet 00 Refill(s) furosemide 2018-10 No 80 mg = 1 Me moria 80 mg oral 10-14 tab, PO, l tablet 20:48: TID, 0 [place] 00 Refill(s) doxycycline Yes 100 mg = 1 Memoria hyclate 100 04-08 cap, PO, l MG Oral 20:19: Q12H, X 5 [place] nn Capsule 00 day, # 10 cap, 0 Refill(s), Pharmacy: [facility] #[id number] lisinopril Yes 20 mg = 1 Me moria 20 mg oral 04-08 tab, PO, l tablet 20:19: Daily, # [place] 00 30 tab, 0 Refill(s), Pharmacy: [facility] #[id number] Miralax No Notes: Memoria 04-08 Dissolve l 14:36: in 8 oz of water or juice. (Same as: Miralax) tamsulosin No Notes: Memor ia 6- (Same As: l 02:00: Flomax) "Do Not Crush" atorvastati No Notes: Kojo lynn n 6- (Same as: l 02:00: Lipitor) Zithromax + No 500 mg, Mem oria Sodium 04-06 Route: l Chloride 22:00: IVPB, [place] 0.9% IV 250 00 [id number], mL Dosing Weight 102.273, kg, Start date: 04/06/19 17:00:00 CDT, Duration: 7 day, Stop date: 04/12/19 17:00:00 CDT, ABX Indication : Pneumonia, 0 Hydralazine No Notes: Kojo lynn 6-29 (Same as: l 22:00: Apresoline [place] 00 ) May interfere w/enteral feedings Take With Food Lasix No Notes: Memoria 6-29 (Same as: l 22:00: Lasix) [place] 00 May cause GI upset. Give with food or milk. cefTRIAXone No Notes: Kojo lynn + sterile 6-29 Give IV l water 10 mL 21:00: push Rafael n 00 slowly over 5 minutes Give within one hour of reconstitu tion Reconstitu te Ceftriaxon e 1 g vial: 10 mL of SWFI Shake immediatel y & vigorously Procardia No Notes: Memori a XL 30 mg 6-29 (Same as: l oral 19:00: Adalat CC, [place] tablet, 00 Procardia extended XL) Give release on empty stomach. Take 1 hour before or 2 hours after meal; "Avoid grapefruit and grapefruit juice". Do not crush Alprazolam No Notes: Memor ia 2 MG Oral 6-29 With food l Tablet 18:22: or milk [place] [Xanax] 00 (Same as: Xanax) Hydralazine No Notes: Kojo lynn 6-29 (Same as: l 18:21: Apresoline [place] 00 ) Push over 5 minutes benazepril No 20 mg, Memor ia 6-29 Route: PO, l 14:00: Drug form: 00 TAB, Daily, Dosing Weight 100.17, kg, Start date: 04/06/19 9:00:00 CDT, Duration: 30 day, Stop date: 05/05/19 9:00:00 CDT Saline No Notes: Memoria Flush 0.9% 6-29 preservati l 14:00: ve free. heparin No Notes: Memoria 6-29 porcine l 14:00: heparin lisinopril No Notes: Memor ia 6-29 (Same as: l 08:57: Prinivil, 00 Zestril) Amlodipine No Notes: Memor ia 6-29 (Same as: l 08:56: Norvasc) carvedilol No Notes: Memor ia 6-29 Give with l 04:30: food. 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 Zithromax No 500 mg, Memor ia 04-06 Route: l 03:00: IVPB, [id number], Dosing Weight 102.273, kg, Start date: 04/05/19 22:00:00 CDT, Duration: 7 day, Stop date: 04/11/19 22:00:00 CDT, ABX Indication : Pneumonia Ceftriaxone No 1 gm, Memor ia 04-06 Route: l 03:00: IVPB, [id number], Dosing Weight 102.273, kg, Start date: 04/05/19 22:00:00 CDT, Duration: 7 day, Stop date: 04/11/19 22:00:00 CDT, ABX Indication : Pneumonia Glucagon No 1 mg, Memoria 04-06 Route: IM, l 02:03: Drug form: PDR/INJ, PRN, Dosing Weight 102.273, kg, PRN Blood Glucose Results, Start date: 04/05/19 21:03:00 CDT, Duration: 30 day, Stop date: 05/05/19 21:02:00 CDT, 0 Bisacodyl 2018-0 No Notes: Memori a 6-29 (Same As: l 02:03: Dulcolax, [place] 00 [place]isco-Lax) Ondansetron No Notes: Kojo lynn -29 (Same as: l 02:03: Zofran) MEDICATION WASTE Product Size: 4 mg Product Wasted: ___ mg Melatonin No Notes: Memori a -29 (Same as: l 02:03: Melatonin) Acetaminoph No Notes: Do M emoria en 04-06 not exceed l 02:03: 4 gm/day. (Same as: Tylenol) Dextrose No 25 gm, 50 Kojo lynn 50% Syringe 04-06 mL, Route: l 02:03: IVP, Drug Form: INJ, Dosing Weight 102.273, kg, PRN, PRN Blood Glucose Results, Start date: 04/05/19 21:03:00 CDT, Duration: 30 day, Stop date: 05/05/19 21:02:00 CDT, 0 Saline No Notes: Memoria Flush 0.9% 04-06 preservati l 02:02: ve free. Acetaminoph No Notes: Do M emoria en 04-06 not exceed l 02:02: 4 gm/day. (Same as: Tylenol) Hydromorpho No Notes: Kojo lynn ne 04-06 Same as: l 01:54: Dilaudid Tramadol No Notes: Not Mem oria 04-06 to exceed l 01:54: 400mg/day. (Same As: Ultram) NIFEdipine 2017-10 Yes 60 mg = 1 Me moria 60 mg oral 0-16 tab, PO, l tablet, 17:27: Daily, # Rafael n extended 00 30 tab, 0 release Refill(s), Pharmacy: [facility] #[id number] heparin 2017-10 No 10,000 Memoria 0-16 unit, 10 l 15:21: mL, Route: DIALYSIS, Drug form: INJ, ONCALL, Dosing Weight 102.273, kg, PRN Dialysis, Start date: 07/24/18 10:21:00 CDT, Duration: 1 doses or times, Stop date: Limited # of times Dilaudid 2017-10 No Notes: Memoria 0-15 (Same as: l 19:17: Dilaudid) heparin 2017-10 No 10,000 Memoria 0-15 unit, 10 l 13:00: mL, Route: Mar[place] DIALYSIS, Drug form: INJ, ONCALL, Dosing Weight 102.273, kg, Start date: 07/23/18 8:00:00 CDT, Duration: 1 doses or times Sodium 2017-10 No 2,000 mL, Memori a Chloride 0-15 Rate: for l 0.9% IV 12:22: dialysis, [place] nn 2,000 mL 00 Route: IV, Dosing Weight 102.273 kg, Total Volume: 2,000, Start date: 07/23/18 7:22:00 CDT, Duration: 1 day, Stop date: 07/24/18 7:21:00 CDT, 2.23, m2 zolpidem 2017-10 No 10 mg, Memoria 0-15 Route: PO, l 02:00: Drug form: TAB, Bedtime, Dosing Weight 102.273, kg, Start date: 07/22/18 21:00:00 CDT, Duration: 30 day, Stop date: 08/20/18 21:00:00 NUTRITION TECHNICIAN tamsulosin 2017-10 No Notes: Memor ia 0-15 (Same As: l 02:00: Flomax) "Do Not Crush" NIFEdipine 2017-10 No Notes: Memor ia 60 mg oral 0-14 (Same as: l tablet, 14:00: Adalat CC, Herm hannah Procardia release XL) Give on empty stomach. Take 1 hour before or 2 hours after meal; "Avoid grapefruit and grapefruit juice". Do not crush multivitami 2017-10 No Notes: Kojo lynn n 0-14 (Same l 14:00: as:One Tab [place] 00 Daily, Tab-A-Conor + Beta Carotene) Give with food. Hydralazine 2017-10 No Notes: Kojo lynn Hydrochlori 0-14 (Same as: l de 50 MG 14:00: Apresoline Her meeks Oral Tablet ) May interfere w/enteral feedings Take With Food Lasix 2017-10 No Notes: Memoria 0-14 (Same as: l 14:00: Lasix) [place] 00 May cause GI upset. Give with food or milk. carvedilol 2017-10 No Notes: Memor ia 0-14 Give with l 14:00: food. [place] 00 (Same As: Coreg) calcium 2017-10 No Notes: Memoria acetate 667 0-14 Same as l MG Oral 14:00: Phoslo Gel Herm hannah Capsule 00 Cap Amlodipine 2017-10 No Notes: Memor ia 0-14 (Same as: l 14:00: Norvasc) [place] 00 Docusate 2017-10 No Notes: Memoria 0-14 (Same as: l 14:00: Colace) [place] (Do Not Crush) carvedilol 2017-10 Yes 37.5 mg = Me moria 12.5 mg 0-14 3 tab, PO, l oral tablet 11:45: BID, 0 Herm hannah 00 Refill(s) calcium 2017-10 Yes See Memoria acetate 667 0-14 Instructio l MG Oral 11:45: ns, 0 [place] Capsule 00 Refill(s) Hydralazine 2017-10 Yes 50 mg, PO, Memoria 0-14 TID, 0 l 11:45: Refill(s) [place] 00 Amlodipine 2017-10 Yes 1 cap, PO, M emoria 10 MG / 0-14 TID, 0 l Benazepril 11:45: Refill(s) He rmann hydrochlori 00 de 20 MG Oral Capsule Hydroxyzine 2017-10 No Notes: Kojo lynn Hydrochlori 0-14 (Same as: l de 25 MG 11:31: Atarax) Rafael n Oral Tablet 00 Avoid alcohol. Alprazolam 2017-10 No Notes: Memor ia 2 MG Oral 0-14 With food l Tablet 11:31: or milk [place] [Xanax] 00 (Same as: Xanax) Dilaudid 2017-10 No Notes: Memoria 0-14 Same as: l 11:27: Dilaudid [place] Dilaudid 2017-10 No 1 mg, Memoria 0-14 Route: l 09:04: IVP, ONCE, [place] 00 Dosing Weight 96.7, kg, Priority: STAT, Start date: 07/22/18 4:04:00 CDT, Stop date: 07/22/18 4:04:00 CDT Dilaudid 2017-10 No 1 mg, Memoria 0-14 Route: l 07:16: IVP, ONCE, Dosing Weight 96.7, kg, Priority: STAT, Start date: 07/22/18 2:16:00 CDT, Stop date: 07/22/18 2:16:00 CDT heparin 2017-10 No 10,000 Memoria 0-14 unit, 10 l 06:00: mL, Route: [place] 00 DIALYSIS, Drug form: INJ, ONCALL, Dosing Weight 96.7, kg, Start date: 07/22/18 1:00:00 CDT, Duration: 1 doses or times Mannitol 2017-10 No Notes: Memoria 0-14 (Same as: l 05:43: Osmitrol) Infuse through 5 micron or smaller filter WASTE: F/P - Sink; E - [facility]ash [facility] normal 2017-10 No 1,000 mL, Memori a saline 0.9% 0-14 Rate: for l IV 1,000 mL 05:43: dialysis He rm prime and rinseback only, Rate: 0 ml/hr, Infuse over: 0, Route: IV, Dosing Weight 96.7 kg, Total Volume: 1,000, Start date: 07/22/18 0:43:00 CDT, Duration: 30 day, Stop date: 08/21/18 0:42:00 NUTRITION TECHNICIAN, 2.16, m2 Acetaminoph 2017-10 No Notes: Do M emoria en 0-14 not exceed l 05:22: 4 gm/day. (Same as: Tylenol) Morphine 2017-10 No Notes: Memoria 0-14 Preservati l 05:22: ve free. (Same as: Morphine Sulfate-PF ) Ondansetron 2017-10 No Notes: Kojo lynn 0-14 (Same as: l 05:22: Zofran) MEDICATION WASTE Product Size: 4 mg Product Wasted: ___ mg Dilaudid 2017-10 No Notes: Memoria 0-14 Same as: l 05:07: Dilaudid Zofran 2017-10 No Notes: Memoria 0-14 (Same as: l 04:47: Zofran) MEDICATION WASTE Product Size: 4 mg Product Wasted: ___ mg Dilaudid 2017-10 No Notes: Memoria 0-14 Same as: l 04:46: Dilaudid Hydromorpho 2017-10 No Notes: Kojo lynn ne 0-14 Same as: l 04:13: Dilaudid Saline 2017-10 No Notes: Memoria Flush 0.9% 0-14 (Same as: l 02:24: BD [place] 00 Posiflush) lactulose 2017-10 No = 1 Pack, Mem oria 10 g oral 0-13 PO, Daily, l powder 02:13: X 2 day, # [place] nn 00 30 ea, 0 Refill(s) Sodium 2017-10 No 15 gm, PO, Memor ia polystyrene 0-13 Daily, X 2 l sulfonate 01:54: day, # 30 Her meeks 250 MG/ML 00 gm, 0 Oral Refill(s) Suspension [Kayexalate ] Kayexalate 2017-10 No Notes: Memor ia 0-12 (sodium l 23:39: polystyren [place] 00 e sulfonate 15 gm/60 ml CANDACE) Shake well before use. (Same as: Kayexalate , SPS) Ascorbic Yes 1 tab, PO, Mem oria Acid 60 MG 8-14 Daily, 0 l / Calcium 16:49: Refill(s) Her meeks Pantothenat 00 e 10 MG / D-BIOTIN 0.3 MG / Folic Acid 0.8 MG / Niacinamide 20 MG / pyridoxine 10 MG / Riboflavin 1.7 MG / Thiamine 1.5 MG / Vitamin B 12 0.006 MG Oral Tablet [Fauzia-Conor] zolpidem 10 Yes 10 mg = 1 M emoria mg oral 8-14 tab, PO, l tablet 16:49: Bedtime, 0 [place] 00 Refill(s) Lorazepam 1 Yes 1 mg = 1 Me moria MG Oral 8-14 tab, PO, l Tablet 16:49: PRN, 0 [place] 00 Refill(s) amLODIPine Yes 10 mg = 1 Me moria 10 mg oral 8-14 tab, PO, l tablet 16:49: Daily, 0 [place] 00 Refill(s) tamsulosin No Notes: Memor ia 04-16 (Same As: l 02:00: Flomax) [place] "Do Not Crush" Hydralazine Yes 50 mg = 1 M emoria Hydrochlori -08 tab, PO, l de 50 MG 20:33: TID, # 90 Herm hannah Oral Tablet 00 tab, 0 Refill(s) NIFEdipine Yes 60 mg = 1 Me moria 60 mg oral 08 tab, PO, l tablet, 20:33: Daily, # Rafael n extended 00 30 tab, 0 release Refill(s) carvedilol Yes 3.125 mg = M emoria 3.125 mg 04-15 1 tab, PO, l oral tablet 20:33: Q12H, # 60 [place] 00 tab, 0 Refill(s) Potassium No Notes: Memori a Chloride 04-15 (Same as: l 20:22: K-Dur 20) [place] 00 "Do Not Crush" For patients unable to swallow tablet, dissolve in one half glass of water. Allow about 2 minutes for the tablets to disintegra te. Stir before giving to prepare slurry and administer . Please exclude Patient s with feeding tube less than 14 [place] (Dobhoff, J-tube etc) and pediatric and patients. With food and full glass of water Hydralazine No Notes: Kojo lynn Hydrochlori 04-15 (Same as: l de 25 MG 14:00: Apresoline Her meeks Oral Tablet 00 ) May interfere w/enteral feedings Take With Food. Lasix No Notes: Memoria 04-15 (Same as: l 14:00: Lasix) Marlo May cause GI upset. Give with food or milk. Acetaminoph No 1 tab, Kojo lynn en 325 MG / 04-15 Route: PO, l Oxycodone 14:00: Drug Form: Jarad rmann Hydrochlori 00 TAB, de 5 MG Dosing Oral Tablet Weight [Percocet 74.091, 5/325] kg, BID, Start date: 04/15/18 9:00:00 CDT, Duration: 30 day, Stop date: 05/14/18 17:00:00 CDT carvedilol No Notes: Memor ia 7-08 Give with l 14:00: food. Marlo 00 (Same As: Coreg) calcium No Notes: Memoria acetate 667 08 Same as l MG Oral 14:00: Phoslo Gel Herm hannah Capsule 00 Cap Amlodipine No Notes: Memor ia 08 (Same as: l 14:00: Norvasc) Morphine No 2 mg, 1 Memori a 7-08 mL, Route: l 09:49: IVP, Drug form: SOLN, Q4H, Dosing Weight 87.784, kg, PRN Pain Score 6-10, Start date: 04/15/18 4:49:00 CDT, Duration: 30 day, Stop date: 05/15/18 4:48:00 CDT Ambien No Notes: Memoria 04-15 (Same As: l 08:47: Ambien) Hydroxyzine Yes 25 mg = 1 M emoria Hydrochlori 7-08 tab, PO, l de 25 MG 08:12: TID, PRN Mercedez nn Oral Tablet 00 Anxiety, # 40 tab, 0 Refill(s) Insulin No Notes: Memoria Lispro 04-15 (Same as: l 07:15: Humalog ) Roll in palms of hands gently; Do not shake `vigorousl y. "Single Patient Use Only " WASTE: F/P - Black; E - Municipal Trash Bin Stable for 28 days at room temperatur e. Expires in days from ____Date Dextrose 0 No 25 gm, 50 Kojo lynn 50% Syringe 08 mL, Route: l 07:15: IVP, Drug Form: INJ, Dosing Weight 74.091, kg, PRN, PRN Blood Glucose Results, Start date: 04/15/18 2:15:00 CDT, Duration: 30 day, Stop date: 05/15/18 2:14:00 CDT Glucagon No 1 mg, Memoria 04-15 Route: IM, l 07:15: Drug form: [place] PDR/INJ, PRN, Dosing Weight 74.091, kg, PRN Blood Glucose Results, Start date: 04/15/18 2:15:00 CDT, Duration: 30 day, Stop date: 05/15/18 2:14:00 CDT Ergocalcife No 50,000 Kojo lynn rol [id number] 7- IntlUnit, l UNT Oral 07:00: 1 cap, [place] Capsule 00 Route: PO, Drug form: CAP, qWeek, Dosing Weight 74.091, kg, Start date: 04/15/18 2:00:00 CDT, Duration: 30 day, Stop date: 05/13/18 9:00:00 CDT Alprazolam No Notes: Memor ia 2 MG Oral 04-15 With food l Tablet 06:56: or milk [place] [Xanax] 00 (Same as: Xanax) NS (Bolus) No 250 mL, Kojo lynn IV 04-15 500 ml/hr, l 06:34: Infuse [place] Over: 0.5 hr, Route: IV, 250, Drug form: INJ, ONCE, Priority: STAT, Dosing Weight 74.091 kg, Start date: 04/15/18 1:34:00 CDT, Stop date: 04/15/18 1:34:00 CDT Hydralazine No 10 mg, Kojo lynn 04-15 Route: l 06:27: IVP, ONCE, [place] 00 Dosing Weight 74.091, kg, Priority: STAT, Start date: 04/15/18 1:27:00 CDT, Stop date: 04/15/18 1:27:00 CDT Amlodipine No Notes: Memor ia -08 (Same as: l 03:50: Norvasc) Hydralazine No Notes: Kojo lynn 7-08 (Same as: l 03:50: Apresoline ) Push over 5 minutes Clonidine No 0.1 mg, Memor ia Hydrochlori 08 Route: PO, l de 0.1 MG 03:02: Drug form: He rmann Oral Tablet 00 TAB, ONCE, Dosing Weight 74.091, kg, Priority: STAT, Start date: 04/14/18 22:02:00 CDT, Stop date: 04/14/18 22:02:00 CDT Clonidine No Notes: Memori a Hydrochlori 08 (Same As: l de 0.1 MG 00:45: Catapres) Her meeks Oral Tablet 00 Saline No Notes: [facility] Flush 0.9% 07 (Same as: l 23:55: BD [place] 00 Posiflush) vancomycin No Notes: Memor ia + Sodium 6-11 TIME l Chloride 18:00: CRITICAL [place] 0.9% IV 100 00 MEDICATION mL (Same As: Vancocin) For adult patients only: Round to nearest 250 mg per Medical Staff approval cefdinir Yes 300 mg = 1 Mem oria 300 MG Oral 6-11 cap, PO, l Capsule 17:08: Q12H, X 7 [place] nn 00 day, # 14 cap, 0 Refill(s), Pharmacy: [id number] heparin No 10,000 Memoria 6-11 unit, 10 l 15:00: mL, Route: [place] 00 DIALYSIS, Drug form: INJ, ONCALL, Dosing Weight 100.455, kg, Start date: 03/19/18 10:00:00 CDT, Duration: 1 doses or times Sodium No 1,000 mL, Memori a Chloride 6-11 Rate: l 0.9% IV 14:14: 2000, [place] 1,000 mL 00 Route: IV, Dosing Weight 100.455 kg, Total Volume: 1,000, Start date: 03/19/18 9:14:00 CDT, Duration: 1 doses or times, Stop date: 03/20/18 9:13:00 CDT, 2.19, m2 Tylenol No Notes: Do Memor ia 6-10 not exceed l 23:00: 4 gm/day. [place] (Same as: Tylenol) Roxicodone No Notes: Memor ia 6-10 (Same as: l 23:00: Roxicodone ) Acetaminoph No Notes: Do M emoria en 325 MG / 6-10 not exceed l Oxycodone 22:00: 4gm/day of He rmann Hydrochlori acetaminop de 5 MG hen. Oral Tablet (Same as: [Percocet Percocet-5 5/325] /325) Amlodipine No Notes: Memor ia 6-10 (Same as: l 14:00: Norvasc) [place] Alprazolam No Notes: Memor ia 2 MG Oral 6-10 With food l Tablet 04:20: or milk [place] [Xanax] 00 (Same as: Xanax) Vancomycin No 2001 mg: Me moria [facility] 610 infuse l Dosing + 03:00: over 2.5 [place] nn Sodium 00 hours For Chloride adult 0.9% IV 250 patients mL only: Round to nearest 250 mg per Medical Staff approval MEDICATION WASTE Product Size: 1000 mg Product Wasted: ___ mg tamsulosin No Notes: Memor ia 6-10 (Same As: l 02:00: Flomax) [place] "Do Not Crush" carvedilol No Notes: Memor ia 6-10 Give with l 02:00: food. [place] (Same As: Coreg) Hydralazine No Notes: Kojo lynn Hydrochlori - (Same as: l de 25 MG 22:00: Apresoline Her meeks Oral Tablet ) May interfere w/enteral feedings Take With Food. Lasix No Notes: Memoria 6-09 (Same as: l 22:00: Lasix) [place] May cause GI upset. Give with food or milk. Hydralazine No Notes: Kojo lynn 6-09 (Same as: l 20:10: Apresoline [place] ) Push over 5 minutes Acetaminoph No Notes: Kojo lynn en 325 MG / 6- (Same as: l Hydrocodone 20:10: Sunman [place] nn Bitartrate 00 325/5) Do 5 MG Oral not exceed Tablet 4gm/day of [Sunman acetaminop 5/325] hen. phenol No Notes: Memoria 6-09 Chlorasept l 20:08: ic [place] 00 (Same as: Chlorasept ic, Sore Throat [place]) WASTE: F/P - Black; E - Municipal Trash Bin Furosemide Yes 80 mg = 1 Me moria 80 MG Oral 6-09 tab, PO, l Tablet 15:44: BID, 0 [place] [Lasix] 00 Refill(s) amLODIPine Yes 10 mg = 1 Me moria 10 mg oral -09 tab, PO, l tablet 15:44: Daily, # [place] 00 30 tab, 0 Refill(s) carvedilol Yes 3.125 mg = M emoria 3.125 mg 03-17 1 tab, PO, l oral tablet 15:44: Q12H, # 60 [place] 00 tab, 0 Refill(s) calcium Yes 2,001 mg = Kojo lynn acetate 667 03-17 3 cap, PO, l MG Oral 15:44: TID, 0 [place] Capsule 00 Refill(s) Acetaminoph Yes 1 tab, PO, Memoria en 325 MG / 03-17 BID, 0 l Oxycodone 15:44: Refill(s) Her meeks Hydrochlori 00 de 5 MG Oral Tablet [Percocet 5/325] Hydralazine Yes 25 mg = 1 M emoria Hydrochlori 03-17 tab, PO, l de 25 MG 15:44: TID, # 270 Her meeks Oral Tablet 00 tab, 1 Refill(s) tamsulosin Yes 0.4 mg = 1 M emoria 0.4 mg oral 03-17 cap, PO, l capsule 15:44: Bedtime, 0 Herm hannah 00 Refill(s) heparin No Notes: Memoria 03-17 porcine l 14:00: heparin heparin No 10,000 Memoria 03-17 unit, 10 l 13:00: mL, Route: DIALYSIS, Drug form: INJ, ONCALL, Dosing Weight 100.455, kg, Start date: 03/17/18 8:00:00 CDT, Duration: 1 doses or times Mannitol Yes Notes: Memoria 03-17 (Same as: l 12:41: Osmitrol) Infuse through 5 micron or smaller filter WASTE: F/P - Sink; E - Municipal Trash Bin Vancomycin No 2001 mg: Me moria 03-17 infuse l 12:00: over 2.5 [place] 00 hours For adult patients only: Round to nearest 250 mg per Medical Staff approval MEDICATION WASTE Product Size: 1000 mg Product Wasted: ___ mg Sodium No 2,000 mL, Memori a Chloride 03-17 2000 l 0.9% 12:00: ml/hr, [place] (Bolus) IV 00 Infuse Over: 1 hr, Route: IV, 2,000, Drug form: INJ, ONCE, Priority: STAT, Dosing Weight 98.182 kg, Start date: 03/17/18 7:00:00 CDT, PRN Dialysis cefepime No Notes: Memoria 03-17 (Same As: l 12:00: Maxipime) [place] MEDICATION WASTE Product Size: 1000 mg Product Wasted: ___ mg Saline No Notes: [facility]oria Flush 0.9% 03-17 (Same as: l 11:53: BD [place] 00 Posiflush) Acetaminoph No Notes: Do M emoria en 03-17 not exceed l 11:53: 4 gm/day. [place] (Same as: Tylenol) Insulin No Notes: Memoria Lispro 03-17 (Same as: l 11:49: Humalog ) Roll in palms of hands gently; Do not shake `vigorousl y. "Single Patient Use Only " WASTE: F/P - Black; E - Municipal Trash Bin Stable for 28 days at room temperatur e. Expires in days from ____Date Glucagon No 1 mg, Memoria 03-17 Route: IM, l 11:49: Drug form: [place] 00 PDR/INJ, PRN, Dosing Weight 98.182, kg, PRN Blood Glucose Results, Start date: 03/17/18 6:49:00 CDT, Duration: 30 day, Stop date: 04/16/18 6:48:00 CDT Dextrose No 25 gm, 50 Kojo lynn 50% Syringe 03-17 mL, Route: l 11:49: IVP, Drug Form: INJ, Dosing Weight 98.182, kg, PRN, PRN Blood Glucose Results, Start date: 03/17/18 6:49:00 CDT, Duration: 30 day, Stop date: 04/16/18 6:48:00 CDT Zosyn No Notes: Memoria 6-09 (Same as: l 10:49: Zosyn) [place] 00 Dosing based on Piperacill in component MEDICATION WASTE Product Size: 4500 mg Product Wasted: ___ mg Vancomycin No 2001 mg: Me moria 6- infuse l 10:49: over 2.5 [place] 00 hours For adult patients only: Round to nearest 250 mg per Medical Staff approval MEDICATION WASTE Product Size: 1000 mg Product Wasted: ___ mg Saline No Notes: Memoria Flush 0.9% 6-09 (Same as: l 07:36: BD [place] 00 Posiflush) Saline No Notes: Memoria Flush 0.9% 4-17 (Same as: l 00:31: BD [place] 00 Posiflush) Lasix No Notes: Memoria 3-15 (Same as: l 14:00: Lasix) [place] 00 May cause GI upset. Give with food or milk. calcitriol No 0.5 Memoria 0.5 mcg 3-14 microgram l oral 14:51: = 1 cap, [place] capsule 00 PO, Daily, # 30 cap, 0 Refill(s), Pharmacy: [facility] Ergocalcife Yes 50,000 Kojo lynn rol [id number] 3-14 IntlUnit = l UNT Oral 14:47: 1 cap, PO, Her meeks Capsule 00 qWeek, # 5 cap, 0 Refill(s), Pharmacy: [facility] Calcium No 2,000 mg = Kojo lynn Carbonate 3-14 4 tab, PO, l 500 MG 14:47: TID, # 168 [place] nn Chewable 00 tab, 0 Tablet Refill(s), Pharmacy: [facility] sevelamer No 2,400 mg = Me moria carbonate 3-14 3 tab, PO, l 800 mg oral 14:47: TID-Meals, Marlo tablet 00 # 270 tab, 0 Refill(s), Pharmacy: [facility] Furosemide No 80 mg, PO, M emoria 80 MG Oral 3-14 Daily, # l Tablet 14:47: 30 ea, 0 [place] [Lasix] 00 Refill(s), Pharmacy: [facility] [id number] carvedilol No 3.125 mg = M emoria 3.125 mg 3-14 1 tab, PO, l oral tablet 14:47: Q12H, # 60 [place] 00 tab, 0 Refill(s), Pharmacy: [facility] 357 amLODIPine No 10 mg = 2 Me moria 5 mg oral 3-14 tab, PO, l tablet 14:47: Daily, # [place] 00 60 tab, 0 Refill(s), Pharmacy: [facility] 357 Calcium No Notes: Memoria Gluconate 3-14 WASTE: F/P l 11:50: - Sink; E - Municipal Trash Bin Coreg No Notes: Memoria 3-14 Give with l 02:00: food. (Same As: Coreg) Lasix No Notes: Memoria 3-13 (Same as: l 14:00: Lasix) MEDICATION WASTE Product Size: 40 mg Product Wasted: ___ mg Vitamin D2 No Notes: Memor ia 3-13 (Same as: l 14:00: Vitamin D) "Do Not Crush" Calcium No Notes: Memoria Gluconate 3-13 WASTE: F/P l 11:39: - Sink; - Municipal Trash Bin Calcium No Notes: Memoria Gluconate 3-12 WASTE: F/P l 20:44: - Sink; E - Municipal Trash Bin Calcium No Notes: Memoria Carbonate 3-12 (Same As: l 18:00: Tums) Calcium Carbonate 500 mg = 200 mg elemental calcium Dose = mg calcium carbonate ( mg elemental calcium) Calcium No Notes: Memoria Gluconate 3-12 WASTE: F/P l 10:53: - Sink; E - Municipal Trash Bin Calcium No Notes: Memoria Gluconate 3-12 WASTE: F/P l 04:35: - Sink; E 00 - Municipal Trash Bin RenaGel No Notes: Memoria 3-11 Same as: l 17:00: Renvela [place] 00 Lasix No Notes: Memoria 3-11 (Same as: l 14:00: Lasix) MEDICATION WASTE Product Size: 40 mg Product Wasted: ___ mg Venofer No Notes: Memoria 3-11 Each 5ml l 14:00: contains [place] 00 100mg elemental iron. Mix with NS Non-Formul heydi (Same as:Venofer ) Administer IV only. MEDICATION WASTE Product Size: 100 mg Product Wasted: ___ mg Calcium No Notes: Memoria Gluconate - WASTE: F/P l 11:35: - Sink; E [place] 00 - Municipal Trash Bin Kayexalate No Notes: Memor ia 3-11 (sodium l 01:11: polystyren [place] 00 e sulfonate 15 gm/60 ml CANDACE) Shake well before use. (Same as: Kayexalate , SPS) sodium No Notes: Memoria bicarbonate 3-11 (sodium l 8.4% 01:11: bicarb [place] 00 8.4% (1 mEq/ml) 50 ml syringe) Amlodipine No Notes: Memor ia 3-10 (Same as: l 15:00: Norvasc) Kayexalate No Notes: Memor ia 3-10 (sodium l 13:38: polystyren [place] 00 e sulfonate 15 gm/60 ml CANDACE) Shake well before use. (Same as: Kayexalate , SPS) Calcium No Notes: Memoria Gluconate 12-15 WASTE: F/P l 23:43: - Sink; E [place] 00 - Municipal Trash Bin Dilaudid No Notes: Memoria 3- (Same as: l 21:38: Dilaudid) Morphine No Notes: Memoria 3- (Same l 19:02: as:MORPhin e Sulfate) Acetaminoph No 2 tabs, Mem oria en 300 MG / 3- PO, BID, 0 l Codeine 18:35: Refill(s) [place] nn Phosphate 00 60 MG Oral Tablet [Tylenol with Codeine #4] Alprazolam Yes 2 mg = 1 Mem oria 2 MG Oral 12-15 tab, PO, l Tablet 18:19: BID, PRN [place] [Xanax] 00 as needed for anxiety, 0 Refill(s) Amlodipine No 1 cap, PO, M emoria 10 MG / 12-15 TID, 0 l Benazepril 18:19: Refill(s) He rmann hydrochlori 00 de 20 MG Oral Capsule [Lotrel 07/28] lisinopril No 20 mg = 1 Me moria 20 mg oral 12-15 tab, PO, l tablet 18:19: Daily, 0 [place] Refill(s) Calcium No Notes: Memoria Carbonate 12-15 (Same As: l 16:06: Tums) [place] 00 Calcium Carbonate 500 mg = 200 mg elemental calcium Dose = mg calcium carbonate ( mg elemental calcium) Calcitriol No Notes: Memor ia 12-15 (Same As: l 16:06: Rocaltrol) Ondansetron No Notes: Kojo lynn 12-15 (Same as: l 14:31: Zofran) MEDICATION WASTE Product Size: 4 mg Product Wasted: ___ mg Acetaminoph No Notes: Do M emoria en 12-15 not exceed l 14:31: 4 gm/day. [place] (Same as: Tylenol) Acetaminoph No Notes: Kojo lynn en 325 MG / 12-15 (Same as: l Hydrocodone 14:31: Sunman [place] nn Bitartrate 00 325/5) Do 5 MG Oral not exceed Tablet 4gm/day of acetaminop hen. Saline No Notes: Memoria Flush 0.9% 12-15 (Same as: l 12:30: BD [place] Posiflush) Lasix No Notes: Memoria 12-15 (Same as: l 10:45: Lasix) [place] 00 MEDICATION WASTE Product Size: 40 mg Product Wasted: ___ mg Vital Signs Vital Name Observation Time Observation Value Comments Source Heart Rate 2020-08-12 23:15:00 [facility] [place] Respitory Rate 2020-08-12 23:15:00 Memori al [place] Systolic (mm Hg) 2020-08-12 23:15:00 Kojo rial [place] Diastolic (mm Hg) 2020-08-12 23:15:00 Mem orial [place] Temperature Oral (F) 2020-08-12 23:15:00 98.1 F [facility] [place] Temperature Oral (F) 2020-08-12 19:20:00 98.0 F [facility] [place] Heart Rate 2020-08-12 19:20:00 [facility] [place] Respitory Rate 2020-08-12 19:20:00 Memori al [place] Systolic (mm Hg) 2020-08-12 19:20:00 Kojo rial [place] Diastolic (mm Hg) 2020-08-12 19:20:00 Mem orial [place] Respitory Rate 2020-08-12 19:00:00 Memori al [place] Systolic (mm Hg) 2020-08-12 19:00:00 Kojo rial [place] Diastolic (mm Hg) 2020-08-12 19:00:00 Mem orial [place] Temperature Oral (F) 2020-08-12 14:00:00 97.7 F [facility] [place] Heart Rate 2020-08-12 14:00:00 [facility] [place] Temperature Oral (F) 2020-08-10 06:00:00 98.3 F [facility] [place] Heart Rate 2020-08-10 06:00:00 [facility] [place] Respitory Rate 2020-08-10 06:00:00 Memori al [place] Systolic (mm Hg) 2020-08-10 06:00:00 Kojo rial [place] Diastolic (mm Hg) 2020-08-10 06:00:00 Mem orial [place] Temperature Oral (F) 2020-08-10 02:00:00 98.4 F [facility] [place] Heart Rate 2020-08-10 02:00:00 [facility] [place] Respitory Rate 2020-08-10 02:00:00 Memori al [place] Systolic (mm Hg) 2020-08-10 02:00:00 Kojo rial [place] Diastolic (mm Hg) 2020-08-10 02:00:00 Mem orial [place] Temperature Oral (F) 2020-08-09 22:00:00 98.3 F [facility] [place] Heart Rate 2020-08-09 22:00:00 [facility] [place] Respitory Rate 2020-08-09 22:00:00 Memori al [place] Systolic (mm Hg) 2020-08-09 22:00:00 Kojo rial [place] Diastolic (mm Hg) 2020-08-09 22:00:00 Mem orial [place] Height 2020-08-07 03:47:00 170.18 cm [facility] [place] Weight 2020-08-07 03:47:00 [facility] [place] BMI Calculated 2020-08-07 03:47:00 Memori al [place] Height 2020-08-06 18:59:00 152.4 cm [facility] [place] BMI Calculated 2020-08-06 18:59:00 [facility] al [place] Weight 2020-08-06 18:59:00 [facility] [place] Respitory Rate 2020-07-24 16:17:00 Memori al [place] Systolic (mm Hg) 2020-07-24 16:17:00 Kojo rial [place] Diastolic (mm Hg) 2020-07-24 16:17:00 Mem orial [place] Temperature Oral (F) 2020-07-24 16:17:00 98.0 F [facility] [place] Respitory Rate 2020-07-24 15:04:00 Memori al [place] Systolic (mm Hg) 2020-07-24 15:04:00 Kojo rial [place] Diastolic (mm Hg) 2020-07-24 15:04:00 Mem orial [place] Heart Rate 2020-07-24 15:04:00 [facility] [place] Temperature Oral (F) 2020-07-24 15:04:00 97.9 F [facility] [place] Height 2020-07-24 14:45:00 170.18 cm [facility] [place] BMI Calculated 2020-07-24 14:45:00 Memori al [place] Weight 2020-07-24 14:45:00 [facility] [place] Heart Rate 2020-07-24 13:10:00 [facility] [place] Respitory Rate 2020-07-24 13:10:00 Mem[facility] al [place] Systolic (mm Hg) 2020-07-24 13:10:00 Kojo rial [place] Diastolic (mm Hg) 2020-07-24 13:10:00 Mem orial [place] Height 2020-07-24 12:55:00 170.18 cm [facility] [place] BMI Calculated 2020-07-24 12:55:00 [facility] al [place] Weight 2020-07-24 12:55:00 [facility] [place] Heart Rate 2020-07-24 12:55:00 [facility] [place] Temperature Oral (F) 2020-07-24 12:55:00 98.2 F [facility] [place] Heart Rate 2020-07-15 19:07:00 [facility] [place] Respitory Rate 2020-07-15 19:07:00 Memori al [place] Systolic (mm Hg) 2020-07-15 19:07:00 Kojo rial [place] Diastolic (mm Hg) 2020-07-15 19:07:00 Mem orial [place] Temperature Oral (F) 2020-07-15 17:00:00 98.1 F [facility] [place] Heart Rate 2020-07-15 17:00:00 [facility] [place] Systolic (mm Hg) 2020-07-15 17:00:00 Kojo rial [place] Diastolic (mm Hg) 2020-07-15 17:00:00 Mem orial [place] Respitory Rate 2020-07-15 17:00:00 Memori al [place] Temperature Oral (F) 2020-07-15 13:00:00 98.3 F [facility] [place] Heart Rate 2020-07-15 13:00:00 [facility] [place] Systolic (mm Hg) 2020-07-15 13:00:00 Kojo rial [place] Diastolic (mm Hg) 2020-07-15 13:00:00 Mem orial [place] Temperature Oral (F) 2020-07-15 09:00:00 98.1 F [facility] [place] Respitory Rate 2020-07-15 09:00:00 Memori al [place] Height 2020-07-06 10:14:00 170.18 cm [facility] [place] BMI Calculated 2020-07-06 10:14:00 [facility] al [place] Weight 2020-07-06 10:14:00 [facility] [place] Systolic (mm Hg) 2020-05-21 15:01:00 Kojo rial [place] Diastolic (mm Hg) 2020-05-21 15:01:00 Mem orial [place] Heart Rate 2020-05-21 15:01:00 [facility] [place] Respitory Rate 2020-05-21 15:01:00 Memori al [place] Height 2020-05-21 13:15:00 170.18 cm [facility] [place] BMI Calculated 2020-05-21 13:15:00 [facility] al [place] Weight 2020-05-21 13:15:00 [facility] [place] Systolic (mm Hg) 2020-05-21 13:15:00 Kojo rial [place] Diastolic (mm Hg) 2020-05-21 13:15:00 Mem orial [place] Heart Rate 2020-05-21 13:15:00 [facility] [place] Respitory Rate 2020-05-21 13:15:00 Mem[facility] al [place] Temperature Oral (F) 2020-05-21 13:15:00 98.5 F [facility] [place] Systolic (mm Hg) 2020-03-23 14:05:00 Kojo rial [place] Diastolic (mm Hg) 2020-03-23 14:05:00 Mem orial [place] Systolic (mm Hg) 2020-03-23 13:00:00 Kojo rial [place] Diastolic (mm Hg) 2020-03-23 13:00:00 Mem orial [place] Temperature Oral (F) 2020-03-23 13:00:00 98.5 F [facility] [place] Heart Rate 2020-03-23 13:00:00 [facility] [place] Respitory Rate 2020-03-23 13:00:00 Memori al [place] Systolic (mm Hg) 2020-03-23 11:10:00 Kojo rial [place] Diastolic (mm Hg) 2020-03-23 11:10:00 Mem orial [place] Respitory Rate 2020-03-23 11:10:00 Memori al [place] Heart Rate 2020-03-23 11:10:00 [facility] [place] Temperature Oral (F) 2020-03-23 11:10:00 98.4 F [facility] [place] Respitory Rate 2020-03-23 09:42:00 Memori al [place] Heart Rate 2020-03-23 09:42:00 [facility] [place] Temperature Oral (F) 2020-03-23 08:46:00 98.3 F [facility] [place] Height 2020-03-23 05:39:00 170.18 cm [facility] [place] BMI Calculated 2020-03-23 05:39:00 Memori al [place] Weight 2020-03-23 05:39:00 [facility] [place] Systolic (mm Hg) 2020-02-03 23:19:00 Kojo rial [place] Diastolic (mm Hg) 2020-02-03 23:19:00 Mem orial [place] Respitory Rate 2020-02-03 23:19:00 Memori al [place] Heart Rate 2020-02-03 23:19:00 [facility] [place] Temperature Oral (F) 2020-02-03 23:19:00 98.6 F [facility] [place] Systolic (mm Hg) 2020-02-03 22:04:00 Kojo rial [place] Diastolic (mm Hg) 2020-02-03 22:04:00 Mem orial [place] Respitory Rate 2020-02-03 22:04:00 Memori al [place] Heart Rate 2020-02-03 22:04:00 [facility] [place] Systolic (mm Hg) 2020-02-03 20:14:00 Kojo rial [place] Diastolic (mm Hg) 2020-02-03 20:14:00 Mem orial [place] Respitory Rate 2020-02-03 20:14:00 Memori al [place] Heart Rate 2020-02-03 20:14:00 [facility] [place] Temperature Oral (F) 2020-02-03 20:14:00 98.5 F [facility] [place] Height 2020-02-03 19:22:00 170.18 cm [facility] [place] BMI Calculated 2020-02-03 19:22:00 [facility] al [place] Weight 2020-02-03 19:22:00 [facility] [place] Temperature Oral (F) 2020-02-03 19:22:00 99.0 F [facility] [place] Temperature Oral (F) 2019-11-05 18:00:00 98.3 F [facility] [place] Heart Rate 2019-11-05 18:00:00 [facility] [place] Respitory Rate 2019-11-05 18:00:00 Mem[facility] al [place] Systolic (mm Hg) 2019-11-05 18:00:00 Kojo rial [place] Diastolic (mm Hg) 2019-11-05 18:00:00 Mem orial [place] Temperature Oral (F) 2019-11-05 14:00:00 98.1 F [facility] [place] Heart Rate 2019-11-05 14:00:00 [facility] [place] Respitory Rate 2019-11-05 14:00:00 [facility] al [place] Systolic (mm Hg) 2019-11-05 14:00:00 Kojo rial [place] Diastolic (mm Hg) 2019-11-05 14:00:00 Mem orial [place] Respitory Rate 2019-11-05 12:36:00 [facility] al [place] Temperature Oral (F) 2019-11-05 10:00:00 98.0 F [facility] [place] Heart Rate 2019-11-05 10:00:00 [facility] [place] Systolic (mm Hg) 2019-11-05 10:00:00 Kojo rial [place] Diastolic (mm Hg) 2019-11-05 10:00:00 Mem o[facility] [place] Height 2019-10-29 07:23:00 170.18 cm [facility] [place] Weight 2019-10-29 07:23:00 [facility] [place] BMI Calculated 2019-10-29 07:23:00 [facility] [place] Height 2019-10-29 01:03:00 170.18 cm [facility] [place] BMI Calculated 2019-10-29 01:03:00 [facility] [place] Weight 2019-10-29 01:03:00 [facility] [place] Temperature Oral (F) 2019-08-20 14:07:00 98.8 F [facility] [place] Heart Rate 2019-08-20 14:07:00 [facility] [place] Respitory Rate 2019-08-20 14:07:00 [facility] al [place] Systolic (mm Hg) 2019-08-20 14:07:00 Kojo rial [place] Diastolic (mm Hg) 2019-08-20 14:07:00 Mem o[facility] [place] Systolic (mm Hg) 2019-08-20 12:15:00 Kojo rial [place] Diastolic (mm Hg) 2019-08-20 12:15:00 Mem orial [place] Heart Rate 2019-08-20 12:15:00 [facility] [place] Temperature Oral (F) 2019-08-20 09:46:00 98.3 F [facility] [place] Heart Rate 2019-08-20 09:46:00 [facility] [place] Respitory Rate 2019-08-20 09:46:00 [facility] al [place] Systolic (mm Hg) 2019-08-20 09:46:00 Kojo rial [place] Diastolic (mm Hg) 2019-08-20 09:46:00 Mem orial [place] Temperature Oral (F) 2019-08-20 06:02:00 98.5 F [facility] [place] Respitory Rate 2019-08-20 06:02:00 [facility] al [place] Height 2019-08-14 22:12:00 175.26 cm [facility] [place] Weight 2019-08-14 22:12:00 [facility] [place] BMI Calculated 2019-08-14 22:12:00 [facility] [place] Respitory Rate 2019-04-08 17:36:00 [facility] al [place] Systolic (mm Hg) 2019-04-08 17:36:00 Kojo rial [place] Diastolic (mm Hg) 2019-04-08 17:36:00 [facility] o[facility] [place] Temperature Oral (F) 2019-04-08 17:36:00 98.0 F [facility] [place] Heart Rate 2019-04-08 17:36:00 [facility] [place] Respitory Rate 2019-04-08 13:23:00 [facility] [place] Heart Rate 2019-04-08 13:23:00 [facility] [place] Temperature Oral (F) 2019-04-08 13:23:00 98.1 F [facility] [place] Systolic (mm Hg) 2019-04-08 13:23:00 Kojo rial [place] Diastolic (mm Hg) 2019-04-08 13:23:00 [facility] o[facility] [place] Systolic (mm Hg) 2019-04-08 08:40:00 Kojo rial [place] Diastolic (mm Hg) 2019-04-08 08:40:00 Mem o[facility] [place] Respitory Rate 2019-04-08 08:40:00 [facility] [place] Heart Rate 2019-04-08 08:40:00 [facility] [place] Temperature Oral (F) 2019-04-08 08:40:00 98.0 F [facility] [place] Weight 2019-04-06 04:23:00 [facility] [place] BMI Calculated 2019-04-06 04:17:00 [facility] [place] Height 2019-04-06 04:17:00 167.64 cm [facility] [place] Weight 2019-04-06 04:17:00 [facility] [place] Respitory Rate 2018-07-24 20:59:00 [facility] [place] Systolic (mm Hg) 2018-07-24 20:59:00 Kojo rial [place] Diastolic (mm Hg) 2018-07-24 20:59:00 [facility] o[facility] [place] Heart Rate 2018-07-24 20:59:00 [facility] [place] Temperature Oral (F) 2018-07-24 20:59:00 98.2 F [facility] [place] Temperature Oral (F) 2018-07-24 16:59:00 98.3 F [facility] Heart Rate 2018-07-24 16:59:00 [facility] Respitory Rate 2018-07-24 16:59:00 [facility] Systolic (mm Hg) 2018-07-24 16:59:00 [facility] [place] Diastolic (mm Hg) 2018-07-24 16:59:00 [facility] [place] Systolic (mm Hg) 2018-07-24 16:33:00 [facility] [place] Diastolic (mm Hg) 2018-07-24 16:33:00 [facility] Temperature Oral (F) 2018-07-24 16:33:00 98.2 F [facility] [place] Respitory Rate 2018-07-24 16:33:00 [facility] [place] Heart Rate 2018-07-24 16:33:00 [facility] Weight 2018-07-22 11:03:00 [facility] [place] BMI Calculated 2018-07-22 11:03:00 [facility] [place] Height 2018-07-22 11:03:00 170.18 cm [facility] BMI Calculated 2018-07-22 01:54:00 [facility] [place] Height 2018-07-22 01:54:00 170.18 cm [facility] [place] Weight 2018-07-22 01:54:00 [facility] [place] Respitory Rate 2018-07-21 02:35:00 [facility] [place] Temperature Oral (F) 2018-07-21 02:35:00 98.6 F [facility] [place] Systolic (mm Hg) 2018-07-21 02:35:00 [facility] [place] Diastolic (mm Hg) 2018-07-21 02:35:00 [facility] [place] Respitory Rate 2018-07-20 23:36:00 [facility] [place] Systolic (mm Hg) 2018-07-20 23:36:00 [facility] [place] Diastolic (mm Hg) 2018-07-20 23:36:00 [facility] Systolic (mm Hg) 2018-07-20 22:37:00 [facility] [place] Diastolic (mm Hg) 2018-07-20 22:37:00 [facility] [place] Respitory Rate 2018-07-20 22:37:00 [facility] Heart Rate 2018-07-20 22:37:00 [facility] [place] Temperature Oral (F) 2018-07-20 22:37:00 97.7 F [facility] Height 2018-07-20 22:37:00 170.18 cm [facility] BMI Calculated 2018-07-20 22:37:00 [facility] [place] Weight 2018-07-20 22:37:00 [facility] BMI Calculated 2018-05-23 15:20:00 [facility] [place] Weight 2018-05-23 15:20:00 [facility] Respitory Rate 2018-05-23 15:20:00 [facility] [place] Heart Rate 2018-05-23 15:20:00 [facility] [place] Height 2018-05-23 15:20:00 170 cm [facility] [place] Systolic (mm Hg) 2018-05-23 15:20:00 [facility] [place] Diastolic (mm Hg) 2018-05-23 15:20:00 [facility] [place] Systolic (mm Hg) 2018-04-15 21:25:00 [facility] [place] Diastolic (mm Hg) 2018-04-15 21:25:00 [facility] [place] Respitory Rate 2018-04-15 16:40:00 [facility] [place] Heart Rate 2018-04-15 16:40:00 [facility] Systolic (mm Hg) 2018-04-15 16:40:00 [facility] [place] Diastolic (mm Hg) 2018-04-15 16:40:00 [facility] [place] Temperature Oral (F) 2018-04-15 16:40:00 98.2 F [facility] [place] Heart Rate 2018-04-15 13:15:00 [facility] [place] Temperature Oral (F) 2018-04-15 13:15:00 98.0 F [facility] Systolic (mm Hg) 2018-04-15 13:15:00 [facility] [place] Diastolic (mm Hg) 2018-04-15 13:15:00 [facility] [place] Respitory Rate 2018-04-15 13:15:00 [facility] [place] Temperature Oral (F) 2018-04-15 09:31:00 98.2 F [facility] [place] Heart Rate 2018-04-15 09:31:00 [facility] Respitory Rate 2018-04-15 09:31:00 [facility] [place] Weight 2018-04-15 07:53:00 [facility] [place] Weight 2018-04-14 23:25:00 [facility] [place] Height 2018-04-14 23:25:00 172.72 cm [facility] [place] BMI Calculated 2018-04-14 23:25:00 [facility] [place] Systolic (mm Hg) 2018-03-20 16:07:00 [facility] [place] Diastolic (mm Hg) 2018-03-20 16:07:00 [facility] [place] Respitory Rate 2018-03-20 16:07:00 [facility] [place] Heart Rate 2018-03-20 16:07:00 [facility] [place] Temperature Oral (F) 2018-03-20 16:07:00 98.4 F [facility] Systolic (mm Hg) 2018-03-20 12:44:00 [facility] [place] Diastolic (mm Hg) 2018-03-20 12:44:00 [facility] [place] Respitory Rate 2018-03-20 12:44:00 [facility] [place] Heart Rate 2018-03-20 12:44:00 [facility] [place] Temperature Oral (F) 2018-03-20 12:44:00 98.3 F [facility] Respitory Rate 2018-03-20 08:46:00 [facility] [place] Temperature Oral (F) 2018-03-20 08:46:00 98.3 F [facility] [place] Heart Rate 2018-03-20 08:46:00 [facility] [place] Systolic (mm Hg) 2018-03-20 08:46:00 [facility] [place] Diastolic (mm Hg) 2018-03-20 08:46:00 [facility] [place] BMI Calculated 2018-03-17 12:01:00 [facility] [place] Weight 2018-03-17 12:01:00 [facility] [place] Height 2018-03-17 12:01:00 167.64 cm [facility] [place] Weight 2018-03-17 07:27:00 [facility] Temperature Oral (F) 2018-01-23 03:30:00 98.2 F [facility] [place] Respitory Rate 2018-01-23 03:30:00 [facility] [place] Systolic (mm Hg) 2018-01-23 03:30:00 [facility] [place] Diastolic (mm Hg) 2018-01-23 03:30:00 [facility] [place] Respitory Rate 2018-01-23 01:48:00 [facility] [place] Heart Rate 2018-01-23 01:48:00 [facility] Systolic (mm Hg) 2018-01-23 01:48:00 [facility] [place] Diastolic (mm Hg) 2018-01-23 01:48:00 [facility] [place] Temperature Oral (F) 2018-01-23 00:14:00 98.2 F [facility] Respitory Rate 2018-01-23 00:14:00 [facility] [place] Systolic (mm Hg) 2018-01-23 00:14:00 [facility] [place] Diastolic (mm Hg) 2018-01-23 00:14:00 [facility] [place] Heart Rate 2018-01-23 00:14:00 [facility] [place] BMI Calculated 2018-01-23 00:14:00 [facility] [place] Height 2018-01-23 00:14:00 165.1 cm [facility] [place] Weight 2018-01-23 00:14:00 [facility] Systolic (mm Hg) 2017-12-20 12:31:00 [facility] [place] Diastolic (mm Hg) 2017-12-20 12:31:00 [facility] [place] Temperature Oral (F) 2017-12-20 12:31:00 98.0 F [facility] [place] Respitory Rate 2017-12-20 12:31:00 [facility] [place] Heart Rate 2017-12-20 12:31:00 [facility] [place] Systolic (mm Hg) 2017-12-20 05:00:00 [facility] [place] Diastolic (mm Hg) 2017-12-20 05:00:00 [facility] [place] Temperature Oral (F) 2017-12-20 05:00:00 98 F [facility] Heart Rate 2017-12-20 05:00:00 [facility] [place] Respitory Rate 2017-12-20 05:00:00 [facility] [place] Temperature Oral (F) 2017-12-20 01:00:00 97.6 F [facility] [place] Heart Rate 2017-12-20 01:00:00 [facility] Systolic (mm Hg) 2017-12-20 01:00:00 [facility] [place] Diastolic (mm Hg) 2017-12-20 01:00:00 [facility] [place] Respitory Rate 2017-12-20 01:00:00 [facility] [place] BMI Calculated 2017-12-15 16:46:00 [facility] [place] Weight 2017-12-15 16:46:00 [facility] [place] Height 2017-12-15 16:46:00 170.18 cm [facility] Height 2017-12-15 16:11:00 170.18 cm [facility] Weight 2017-12-15 11:31:00 [facility] Procedures Procedure Date / Time Performed Performing Clinician Sourcaesar e Knee maneuver [facility] Shoulder manipulation [facility] Dialysis access site care [facility] [place] Encounters Start End Encounter Admission Attending Care Care Encounter Source Date/Time Date/Time Type Type Clinicians Facility Department ID 2019-04-05 Inpatient E [facility] MED [id number] [facility] L 20:14:00 2019-04-05 Inpatient [facility] [id number] [facility] 18:31:48 2020-12-18 2020-12-18 Telephone [facility] [id number] 00:00:00 00:00:00 Garces A MULTISPEC [id number] IAL[place] [id number] [place] [id number] [facility] 2020-12-01 2020-12-[id number] 00:00:00 00:00:00 Garces A MULTISPEC [id number] IALTY [id number] [place] [address] [id number] [facility] [place] 2020-11-12 2020-11-12 Telephone [facility] [id number] 00:00:00 00:00:00 Garces A MULTISPEC [id number] IALTY [id number] [place] [id number] [facility] 2020-11-12 2020-11-12 Abstract [facility] [phone] [id number] 00:00:00 00:00:00 Garces A MULTISPEC [id number] IALTY [id number] [place] [id number] [facility] 2020-08-06 2020-08-12 Outpatient BHAVIN Tesfaye [id number] 13:41:30 18:50:00 John 12 2020-08-06 2020-08-06 Inpatient E [facility] MED [id number] [facility]BL 20:29:00 18:33:00 2020-08-06 2020-08-06 Outpatient Paulo Hong [facility] [id number] 13:41:30 13:41:30 Bulmaro 12 2020-07-24 2020-07-24 Outpatient Hugo [facility]PL [id number] 07:53:57 11:22:00 , Cecy 11 2020-07-24 2020-07-24 Emergency E [facility] [id number] MHBL 07:53:00 07:53:00 2020-07-06 2020-07-15 Outpatient Brien [facility] [id number] 05:06:46 17:00:00 John 10 2020-07-06 2020-07-06 Inpatient E [facility] MED [id number] MHBL 08:50:00 05:06:00 2020-05-21 2020-05-21 Outpatient Elmer [facility]PL [id number] 08:09:59 10:59:00 Brenden Magnolia Leon 2020-05-21 2020-05-21 Emergency E [facility]BL [id number] MHBL 08:09:00 08:09:00 2020-03-23 2020-03-23 Outpatient Berrymaddynegrita [facility]PL MHPL [id number] 00:18:16 10:31:00 Werner Tim 08 2020-03-23 2020-03-23 Emergency E [facility]BL [id number] MHBL 00:18:00 00:18:00 2020-02-03 2020-02-03 Outpatient Kaushik [facility]PL [id number] 14:07:14 18:44:00 Michel French 07 2020-02-03 2020-02-03 Emergency E [facility]BL [id number] MHBL 14:07:00 14:07:00 2019-10-28 2019-11-05 Outpatient Josué [facility] MHPL [id number] 18:57:20 20:15:00 Redd 06 2019-10-30 2019-10-28 Inpatient E [facility] MED [id number] MHBL 14:55:00 23:23:00 2019-08-15 2019-08-20 Outpatient Lillie [facility]PL [id number] 18:36:00 13:40:00 Debi 10 2019-08-15 2019-08-14 Inpatient U [facility] MED [id number] MHBL 18:36:00 15:56:00 2019-04-05 2019-04-08 Outpatient Charles, [facility]PL MHPL [id number] 20:14:00 16:53:00 Bandar 79 2018-07-21 2018-07-24 Outpatient Dhamotharan [facility]PL [id number] 20:45:00 18:05:00 , Roger Herrera 2018-07-20 2018-07-20 Outpatient Lora [facility] MHPL [id number] 17:20:00 21:38:00 Cecy 04 2018-05-23 2018-06-21 Out[facility] [id number] 09:47:00 23:59:00 ErikaRoosevelt garcia 2018-04-14 2018-04-15 Outpatient Isacc, [facility] MHPL [id number] 18:17:00 16:55:00 David 03 Nerissae 2018-03-17 2018-03-20 Outpatient Sumner, [facility]PL MHPL [id number] 02:25:00 17:12:00 Mayson 02 2018-01-22 2018-01-22 Outpatient Twany, [facility]PL [facility]PL [id number] 18:36:00 22:58:00 Osvaldo Asaf Lee 2017-12-15 2017-12-20 Outpatient Josué, [facility]PL [facility] [id number] 05:29:00 13:55:00 Peter 00 Results Test Description Test Time Test Comments Results Result Comments Source CHEM PANEL 2020-08-12 79 [facility] 09:42:00 [place] CHEM PANEL 2020-08-12 21 [facility] 09:42:00 [place] CHEM PANEL 2020-08-12 7.93 [facility] 09:42:00 [place] CHEM PANEL 2020-08-12 139 [facility] 09:42:00 [place] CHEM PANEL 2020-08-12 3.2 [facility] 09:42:00 [place] CHEM PANEL 2020-08-12 104 [facility] 09:42:00 [place] CHEM PANEL 2020-08-12 27 [facility] 09:42:00 [place] CHEM PANEL 2020-08-12 8.8 [facility] 09:42:00 [place] CHEM PANEL 2020-08-12 11.2 [facility] 09:42:00 [place] CHEM PANEL 2020-08-12 7 [facility] 09:42:00 [place] HEMATOLOGY 2020-08-12 4.7 [facility] 09:42:00 [place] HEMATOLOGY 2020-08-12 1.2 [facility] 09:42:00 [place] HEMATOLOGY 2020-08-12 0.2 [facility] 09:42:00 [place] HEMATOLOGY 2020-08-12 0.2 [facility] 09:42:00 [place] HEMATOLOGY 2020-08-12 71.0 [facility] 09:42:00 [place] HEMATOLOGY 2020-08-12 2.0 [facility] 09:42:00 [place] HEMATOLOGY 2020-08-12 18.0 [facility] 09:42:00 [place] HEMATOLOGY 2020-08-12 3.0 [facility] 09:42:00 [place] HEMATOLOGY 2020-08-12 3.0 [facility] 09:42:00 [place] HEMATOLOGY 2020-08-12 2.0 [facility] 09:42:00 [place] HEMATOLOGY 2020-08-12 1.0 [facility] 09:42:00 [place] HEMATOLOGY 2020-08-12 0.0 [facility] 09:42:00 [place] HEMATOLOGY 2020-08-12 1 [facility] 09:42:00 [place] HEMATOLOGY 2020-08-12 Normal [facility] 09:42:00 (08/12/20 3:42 [place] AM) HEMATOLOGY 2020-08-12 Normal [facility] 09:42:00 (08/12/20 3:42 [place] AM) HEMATOLOGY 2020-08-12 09:42:00 Test Item Value Reference Range Interpretation Comme nts Tot Cell Ct (test code = Tot Cell Ct) 100 1 [facility] IbgyamaVGIRRKOCQG9654-48-61 09:42:00Moderate *ABN*(08/12/20 3:42 AM) [facility] GjounccRJQGMTUNVV2173-15-46 09:42:006.4[facility]ann[facility]OLOGY 2020-08-12 09:42:003.02[facility] KywzhmhMQEYUECDSC5144-87-60 09:42:009.0[facility] HixpupeVQNOKINGAA8305-05-81 09:42:0025.9[facility] MzlicerQVOJHCJUUX6985-73-05 09:42:0085.7[facility] HlebhgeUXFYJFIYWK7256-04-09 09:42:00 Test Item Value Reference Range Interpretation Comments MCH (test code = MCH) 30.0 pg 27.0-31.0 [facility] AeimudaEWQTKZJBWL4318-21-47 09:42:0034.9[facility]annHEMATOLOGY 2020-08-12 09:42:0014.8[facility] DqpxtiuDXFZYDTWCN9727-06-76 09:42:56875Hqlssjxl DittpzcGVNQVYSWCP8254-79-79 09:42:007.0[facility]annCHEM FUQVU5023-59-42 09:35:0080[facility]annCHEM MTBHG4024-01-51 09:35:0013[facility]annCHEM ZKULN7918-40-61 09:35:005.51[facility]annCHEM NDPCR2310-83-71 09:35:29820 [facility]annCHE[facility] HDMSX7628-56-02 09:35:003.2[facility]annCHEM PANEL 2020-08-11 09:35:08470Wqxuzbyw HermannCHEM SGEOO3529-26-45 09:35:0028[facility]annCHEM PHBJR7625-44-40 09:35:008.4[facility]annCHEM HVKDI0399-69-13 09:35:0010.2[facility]annCHEM CBQXV9571-03-59 09:35:0010[facility] MXQCCOIITE3286-18-19 09:35:0068.4[facility] DrfwmylFCEXBISDXH7621-34-15 09:35:00 17.8[facility] EqrawiuENCIDGPCMA3502-24-94 09:35:009.3[facility]annHEMATOLOGY 2020-08-11 09:35:003.7[facility] BrfshngJSZBTBYVTJ4144-22-24 09:35:000.8[facility] MstkdplQFWJJMHDND5200-92-37 09:35:004.1[facility] ZnlrqgnZGPJWESDZV6701-99-56 09:35:001.1[facility] OlzgytuVPYHYDHKOF7164-01-71 09:35:000.6[facility] OSXIQJHXVU2275-37-13 09:35:000.2[facility] TatfkgyTUPAAAXXWA3014-50-75 09:35:006.0 [facility] DhzsldnRPGWSDBGFQ8648-24-53 09:35:002.84[facility]annHEMATOLOGY 2020-08-11 09:35:008.1[facility] YqxexptTXWQBUNLWW2348-07-06 09:35:0024.2[facility] NfswncjXCWKHEHSYS6193-15-83 09:35:0085.3[facility] WpamgdpBRGIMRSSJF9809-78-34 09:35:00 Test Item Value Reference Range Interpretation Comments MCH (test code = MCH) 28.7 pg 27.0-31.0 [facility] KlrtqmgGMWISSBZWS1421-46-37 09:35:0033.6[facility]annHEMATOLOGY 2020-08-11 09:35:0014.5[facility] XadbaopBPQHDKYCDT8909-49-17 09:35:72645Gklezslf EtergrdXLRSRQVUAW4573-10-66 09:35:007.4[facility] HermannCHEM WWZAC7963-34-94 09:39:87675Ooicsucw HermannCHEM JZOWT0568-51-33 09:39:0021[facility]annCHEM ZLVTZ0427-12-35 09:39:006.77[facility]annCHEM IVIBR3954-89-49 09:39:30041 [facility]annCHEM GLVWU3870-20-60 09:39:003.5[facility]annCHEM PANEL 2020-08-10 09:39:81173Dtxbbxvv HermannCHEM FEVDV5071-09-57 09:39:0029[facility]annCHEM SKJBK1193-71-31 09:39:009.5[facility]annCHEM ZORSJ9772-78-18 09:39:007.9[facility]annCHEM BWZPA2540-64-97 09:39:008[facility] [place] YVNXJKSKRK2376-95-41 09:39:003.8[facility] EvjqyrvNVZHVLMRDO2947-60-99 09:39:001.1 [facility] QydiqlwCPRDBRIWQC8885-66-60 09:39:000.2[facility]annHEMATOLOGY 2020-08-10 09:39:000.4[facility] NdtasanBHKYXXFFSO1453-11-90 09:39:0064.0[facility] CryoojuTCBFRKSEBJ7960-75-80 09:39:002.0[facility] GsmxjofQBAMOGIKUH2676-43-56 09:39:0020.0[facility] FwtkivgCWTOESJLOK0944-11-46 09:39:004.0[facility] QQCZUQCLYY0297-90-67 09:39:007.0[facility] XgifhtoCOVMMNEJWU4525-66-24 09:39:003.0 [facility] UzjghvsLQUNBBOWND8520-65-17 09:39:000.0[facility] HermannHEMATOLOGY 2020-08-10 09:39:001[facility] IzjehsqZJDEDSNOGA4237-72-65 09:39:00Normal (08/10/20 3:39 AM)[facility] WyxraguCPSTTHLAEW6289-35-95 09:39:00Normal (08/10/20 3:39 AM) [facility] OtqhhncGTTVXSEHGL2452-74-75 09:39:005.7[facility] HermannHEMATOLOGY 2020-08-10 09:39:002.61[facility] XwgwrjeVVTYZDMCMN3655-83-47 09:39:007.5[facility] MkxrmkrMFRYDIPMNL2086-95-85 09:39:0022.3[facility] ZtkhpjbUYQLYVKNSA2611-19-20 09:39:0085.6[facility] UaqjxvcIYKGVOBDMX7072-46-50 09:39:00 Test Item Value Reference Range Interpretation Comments MCH (test code = MCH) 28.8 pg 27.0-31.0 [facility] IoelblmJHNNCKDUQQ2155-29-92 09:39:0033.6[facility] HermannHEMATOLOGY 2020-08-10 09:39:0013.9[facility] NkbixxoKSBALJZGHA2957-55-16 09:39:15276Ighkqrht VucvkzgAPPVVIRNOK3043-63-86 09:39:007.5[facility] AmnjpykTAKFZWZOII6651-09-33 16:40:000.6[facility] ZqzdablEFQBKWBHZZ7948-11-96 16:40:005.7[facility] [place] DKUMTDIMFS3480-95-20 16:40:002.82[facility] FlbsydbKKVYEGTMUV6872-66-91 16:40:00 8.0[facility] OlzhxsbQXFOUYVJYK0460-05-06 16:40:0024.2[facility]annHEMATOLOGY 2020-08-09 16:40:0085.8[facility] GjswyjrNMYEVWSIDX7219-76-00 16:40:00 Test Item Value Reference Range Interpretation Comments MCH (test code = MCH) 28.6 pg 27.0-31.0 [facility] BdrnjnbXNDNXBKBJP3939-58-04 16:40:0033.3[facility]annHEMATOLOGY 2020-08-09 16:40:0014.1[facility] WrkcwxdHGWPFIXRCR3446-23-38 16:40:13486Ftgdduti QxolscmMJQDDAOYXR3393-40-02 16:40:007.2[facility] NpvoetpKTVMKBKBVS0986-00-37 16:40:0072.6[facility] RdyjaqhSXXXMDUKOU4935-44-38 16:40:0014.6[facility] [place] QSVFASGSZM3860-48-35 16:40:007.8[facility] JvtfumiZWHOCBTASG1765-91-34 16:40:004.4 [facility] NrfuzoaIDOVPYGIJR9172-43-68 16:40:004.2[facility]annHEMATOLOGY 2020-08-09 16:40:000.8[facility] MmbbjmiTNEAJIZUIH9499-71-90 16:40:000.4[facility] JyvibsbGEWGXDHCDP8448-71-23 16:40:000.2[facility] AkpluhoJRALFSYUVU3651-16-92 16:40:007[facility] HermannCHEM GSYTW7518-39-62 14:48:004.2[facility]annCHEM NLCGR2394-39-81 14:48:001.3[facility] HermannCHEM ZUNYC8435-64-90 14:48:0014 [facility]annCHEM MGBTR2195-93-05 14:48:0017[facility]annCHEM PANEL 2020-08-09 14:48:0092[facility] HermannCHEM GOJAM2543-84-02 14:48:000.5[facility]annCHEM YHHPL1173-34-06 14:48:00 Test Item Value Reference Range Interpretation Comments B/C Ratio (test code = B/C Ratio) 3 1 6-25 [facility]annCHEM ZBQOC3206-87-21 14:48:002.9[facility]annCHEM PANEL 2020-08-09 14:48:00 Test Item Value Reference Range Interpretation Comments A/G Ratio (test code = A/G Ratio) 0.4 1 0.7-1.6 [facility]annCHE[facility] SYLTG9187-29-12 14:48:001.8[facility]annCHEM PANEL 2020-08-09 14:48:0070[facility]annCHEM HRTJC3124-70-14 14:48:0025[facility]annCHEM ZTOVB8973-19-01 14:48:008.85[facility]annCHEM NUWPR8061-03-03 14:48:64186Vldcrmmm HermannCHEM PYPCC1717-57-49 14:48:004.0[facility]annCHEM XENIK5527-49-96 14:48:62789Avfabwxn HermannCHEM THACR5649-51-10 14:48:0030 [facility]annCHEM CKYDZ9178-19-26 14:48:007.5[facility]annCHEM PANEL 2020-08-09 14:48:0013.0[facility]annCHEM WXCQV8091-36-30 14:48:006[facility] RrsgraqHZBTEYIPOU7947-37-57 10:41:007.6[facility] XuuagfdVRDGLHZQZQ3397-34-14 02:33:007.9[facility] JybzldaFNWMDHKNZI4420-31-36 20:10:0023.0[facility] HermannBODY JARORP1943-91-40 19:15:00Light Yellow (08/08/20 2:15 PM)[facility]annBODY TAGXCS5363-58-35 19:15:00Slight Cloudy (08/08/20 2:15 PM)[facility]annBODY GJSOBG4004-33-40 19:15:93715Etfnakrh HermannBODY YQNYOR7538-52-22 19:15:86303 [facility]annB[facility] BKFDVA3571-48-77 19:15:0018[facility]annB[facility] FLUIDS 2020-08-08 19:15:0010[facility]annBODY RJTLKT5426-43-19 19:15:0044[facility]annB[facility] BGQDOP1817-03-62 19:15:0026[facility]annBODY JTCYTG9685-46-03 19:15:002[facility]annBODY YZICHU9602-96-07 19:15:00Abdomn (08/08/20 2:15 PM) [facility] UEOFVTC4350-19-80 15:28:09Product available 4(08/08/20 10:28 AM)[facility] GZGQLLK4490-08-41 14:41:00 Negative (08/08/20 9:41 AM)[facility] MvvyxpvAXFANOIDJR8944-29-26 14:41:001.0 [facility] MirxzoiHFBHEFEHYR9573-43-61 14:41:009.0[facility] HermannHEMATOLOGY 2020-08-08 14:41:00See Note (08/08/20 9:41 AM)[facility]annHEMATOLOGY 2020-08-08 14:41:00Normal (08/08/20 9:41 AM)[facility] HdmwyvdVKFAFCUICK3986-45-51 14:41:001+ *ABN*(08/08/20 9:41 AM)[facility] SskisyyIZVHROBBXN2969-08-23 14:41:00 1+ *ABN*(08/08/20 9:41 AM)[facility] EvhngutHVHFISRTZL9789-03-67 14:41:001+ (08/08/20 9:41 AM)[facility] VutvkodEWGFUNFEYN6199-41-63 14:41:00Moderate *ABN*(08/08/20 9:41 AM)[facility] JvmnayfOHXHGRNCOF7547-62-54 14:41:006.0[facility] LkgunhuOVYKWLHSZI9287-78-94 14:41:002.32[facility] NonbbujOVHLWPEADL5365-42-75 14:41:0019.8[facility] LtwdqvjOFPVVAVRGV1057-91-20 14:41:0085.6[facility] [place] FJKLLLGIBO4835-77-71 14:41:00 Test Item Value Reference Range Interpretation Comments MCH (test code = MCH) 29.0 pg 27.0-31.0 [facility] KrcjtynQUBNVWBRZP2510-06-38 14:41:0033.8[facility] HermannHEMATOLOGY 2020-08-08 14:41:0013.9[facility] NdevanhUUIVOYNMPP0178-13-15 14:41:77618Yndzytyb AdcyyjkNFUXYCSKZE8871-79-02 14:41:006.8[facility] RezevzzABLWSBETHH6219-95-74 14:41:004.1[facility] UvgkwapUYAHWVYMSI2150-29-79 14:41:001.4[facility] OQOTHTKRKC7987-41-88 14:41:000.1[facility] JaeaursOULOLSVSDO7421-58-86 14:41:000.4 [facility] LywgizoCIUVPSRTNZ1135-17-16 14:41:0068.0[facility] HermannHEMATOLOGY 2020-08-08 14:41:0014.0[facility] PqmgtfkLLNWWBIJPN0040-86-48 14:41:002.0[facility] RsptbqjSACBAUYXIE2294-66-63 14:41:006.0[facility] HermannCHEM IJADY9934-99-89 08:42:004.4[facility] HermannCHEM PWJRH4707-37-57 08:42:0080[facility] HermannCHEM HJQVX5531-10-13 08:42:0034[facility]annCHEM OTVQV3189-07-46 08:42:0010.90 [facility]annCHEM JBSFY4989-45-06 08:42:40750Ivdiblyy HermannCHEM PANEL 2020-08-08 08:42:003.[facility] HermannCHEM UPRSK5494-77-42 08:42:0099[facility] HermannCHEM JGEEV3692-75-04 08:42:0033[facility] HermannCHEM XZZMB7868-00-94 08:42:008.1[facility]annCHEM VBRFI8354-73-23 08:42:009.[facility] HermannCHEM BYWPU6654-52-58 08:42:005[facility] CmiblkiDWQMHIUESQ7821-12-07 08:42:000.6 [facility] TdmoplyTCQZAHZJFJ1228-82-83 08:42:006.7[facility] HermannHEMATOLOGY 2020-08-08 08:42:002.53[facility] PjityhuZMXCHAZQHT5251-61-22 08:42:0084.8[facility] RepjbhjVKWMGSDRCO4548-22-92 08:42:00 Test Item Value Reference Range Interpretation Comments MCH (test code = MCH) 28.5 pg 27.0-31.0 [facility] QzysznnZNRVASSWBG0156-41-54 08:42:0033.6[facility] HermannHEMATOLOGY 2020-08-08 08:42:0014.4[facility] KpekhxzTKICWINQTN7123-75-48 08:42:36005Ogckbpcl EfbudhzHGAJSEPSON8938-61-29 08:42:007.0[facility] ZysibkfEDBIFYJMOY2700-84-94 08:42:0071.1[facility] TdxmkqeCGEVACKOIA4047-75-73 08:42:0016.3[facility] [place] PTTUTYXFBR4953-46-09 08:42:008.0[facility] DcbfrmhNYXJEJYNYB5857-34-95 08:42:004.0 [facility] LlcztiaUCZAJOBMHB9541-39-58 08:42:004.7[facility]annHEMATOLOGY 2020-08-08 08:42:001.1[facility] UrpsfqtPPCWXEOETP4983-03-99 08:42:000.5[facility] LkmacfzHLMWYXONLW0915-02-77 08:42:000.3[facility] FxckbrbWOFDSITPUU1259-67-94 02:01:00 Test Item Value Reference Range Interpretation Comments PT (test code = PT) 13.2 s 12.0-14.7 [facility] FjsawgoUFZGFFZIQA7231-34-16 02:01:00 Test Item Value Reference Range Interpretation Comments INR (test code = INR) 1.00 1 0.85-1.17 [facility] RomdvctSRVBDUSAIM6621-68-12 02:01:00 Test Item Value Reference Range Interpretation Comments PTT (test code = PTT) 29.8 s 22.9-35.8 [facility] SryonymFZSNHKDRMD9528-83-91 02:01:000.6[facility] HermannIMMUNOLOGY 2020-08-08 02:01:00Negative *NA*(08/07/20 9:01 PM)[facility]annCHEM PANEL 2020-08-07 21:23:0072[facility]annCHEM JGPIQ4658-90-40 21:23:0028[facility]annCHEM VLXQH9584-19-19 21:23:009.63[facility]annCHEM ZKRME0258-43-05 21:23:18343Idyucdev HermannCHEM FTDBH5823-22-23 21:23:003.6[facility]annCHEM BZXOC4799-54-44 21:23:0099[facility]annCHEM MKCTG6371-57-51 21:23:0032 [facility]annCHEM SLOHF1514-96-59 21:23:009.6[facility]annCHEM PANEL 2020-08-07 21:23:008.3[facility]annCHEM QKOUB3191-35-31 21:23:005[facility] CclswwfWTXENIAUUY1630-12-62 15:21:00Not Detected (08/07/20 10:21 AM)[facility] HermannCARDIAC GXDAJFW5278-66-29 08:08:0050[facility]annCHEM DNLPZ2417-05-67 08:08:00 Test Item Value Reference Range Interpretation Comments B/C Ratio (test code = B/C Ratio) 3 1 6-25 [facility]annCHEM LYBFU5866-42-14 08:08:004.5[facility] HermannCHEM PANEL 2020-08-07 08:08:001.4[facility]annCHEM ZDJVZ3724-67-74 08:08:003.1[facility]annCHEM IAAYU8164-57-84 08:08:00 Test Item Value Reference Range Interpretation Comments A/G Ratio (test code = A/G Ratio) 0.5 1 0.7-1.6 [facility]annCHEM LQYNH5150-63-29 08:08:0015[facility]annCHEM PANEL 2020-08-07 08:08:0016[facility]annCHEM PCUNN6958-48-98 08:08:0082[facility]annCHEM SRGSZ7544-92-28 08:08:000.4[facility]annCHEM WYUMG7351-60-09 08:08:001.7[facility]annCHEM HOKYV0443-13-95 08:08:003.8[facility] XOLERUUEXQ3717-30-35 08:08:00 Test Item Value Reference Range Interpretation Comments PT (test code = PT) 13.0 s 12.0-14.7 [facility] KvariodSDDQJGGPGK7516-90-59 08:08:00 Test Item Value Reference Range Interpretation Comments INR (test code = INR) 0.98 1 0.85-1.17 [facility] BbludmjUJYCBIKVMM9866-94-48 08:08:00 Test Item Value Reference Range Interpretation Comments PTT (test code = PTT) 30.5 s 22.9-35.8 [facility] MinkpxvHDUDXJBSYH7663-15-76 08:08:000.1[facility] HermannHEMATOLOGY 2020-08-07 02:04:000.1[facility]annCHEM TJTAP7747-82-54 01:34:004.8[facility]annCHEM ESXWP6227-81-39 01:34:001.6[facility]annCHEM DFEQM5614-50-09 01:34:003.2[facility]annCHEM FXZMV7941-03-83 01:34:00 Test Item Value Reference Range Interpretation Comments A/G Ratio (test code = A/G Ratio) 0.5 1 0.7-1.6 [facility]annCHEM XTCTP7454-75-10 01:34:0014[facility]annCHEM PANEL 2020-08-07 01:34:0016[facility]annCHEM QNTAM0917-61-37 01:34:0085[facility]annCHEM ADQYF7944-56-20 01:34:000.4[facility]annCHEM IAMYH8483-25-64 01:34:00<0.1[facility] HermannCARDIAC UBZHIYC6527-35-00 22:24:000.03[facility] HermannCHEM UTYDB5066-89-46 22:24:001.6[facility] CuvirfwMXEOLBPHDW6662-79-99 22:24:001.0[facility] VoajxkuBRYCQPEHZX9764-24-73 22:24:001.0[facility] VLWXZIIYEK3730-99-39 22:24:00Moderate *ABN*(08/06/20 5:24 PM)[facility] WPIUBFOPAJ9690-01-89 22:24:00 Test Item Value Reference Range Interpretation Comments PT (test code = PT) 12.9 s 12.0-14.7 [facility] CoarrazVHYINJGDKC7182-95-71 22:24:00 Test Item Value Reference Range Interpretation Comments INR (test code = INR) 0.97 1 0.85-1.17 [facility] LdzgzmbCPNXECXBKG9106-26-97 22:24:002.0[facility] HermannHEMATOLOGY 2020-08-06 22:24:000.0[facility] DjeuyxaRLNTGCUPSK5757-84-39 22:24:00Normal (08/06/20 5:24 PM)[facility] BprcohiTPKZFOTYIK1907-88-12 22:24:00Normal (08/06/20 5:24 PM)[facility] HermannCARDIAC HUWYLSM3618-97-53 13:32:000.03[facility] CHEM KVQBD4035-59-33 13:32:71566Usucseai HermannCHEM NEKFB7106-77-58 13:32:0025 [facility]annCHEM TLVJT0038-07-86 13:32:009.66[facility] HermannCHEM PANEL 2020-07-24 13:32:15154Jrutqope HermannCHEM MZBZY1687-94-47 13:32:003.0[facility] HermannCHEM UTWFI8434-78-54 13:32:0091[facility]annCHEM ZCKJV0487-19-22 13:32:0032[facility]annCHEM HRWMF8551-57-25 13:32:0012.0[facility] HermannCHEM WBLVW8591-03-97 13:32:008.7[facility] HermannCHEM TBIXR4674-18-91 13:32:00 Test Item Value Reference Range Interpretation Comments B/C Ratio (test code = B/C Ratio) 3 1 6-25 [facility] XEQCQ3053-33-81 13:32:004.9[facility]annCHE[facility] PANEL 2020-07-24 13:32:001.5[facility] VUHNP6467-11-04 13:32:003.4[facility] NDFMV4581-74-52 13:32:00 Test Item Value Reference Range Interpretation Comments A/G Ratio (test code = A/G Ratio) 0.4 1 0.7-1.6 [facility] ZDUPQ5202-31-79 13:32:0016[facility]annCHE[facility] PANEL 2020-07-24 13:32:0022[facility]CHE[facility] NFCGC7867-25-31 13:32:0088[facility] FDSQX7033-69-25 13:32:000.5[facility]annCHE[facility] ODFUI9095-17-42 13:32:005[facility] LajzmyiKXLNNZRVNW3510-24-69 13:32:006.2[facility] KKSBLCXBCE7863-59-56 13:32:002.89[facility] BnmycxrKFYSYZANHX6626-43-71 13:32:00 8.4[facility] EvwrimuYUILKVIHRU7089-05-91 13:32:0024.1[facility]annHEMATOLOGY 2020-07-24 13:32:0083.3[facility] AtrmfodNOYUVOHKGN4332-00-97 13:32:00 Test Item Value Reference Range Interpretation Comments MCH (test code = MCH) 29.0 pg 27.0-31.0 [facility] IillxqtQVENECODQX3627-86-47 13:32:0034.8[facility]annHEMATOLOGY 2020-07-24 13:32:0013.6[facility] WjserocLUMWDQAZER9885-24-59 13:32:22199Pppynwtc AswwcolQBQEDCZWMH7831-17-88 13:32:006.6[facility] QioeyweAANKDUCZNC8086-59-47 13:32:0073.5[facility] QciuufuERNYKYQRJR8494-09-20 13:32:0011.4[facility] QUGWECRLIW9703-12-09 13:32:008.7[facility] GbhwasrVTFMQDXXUZ7415-71-63 13:32:005.4 [facility] EdpioylWNGIRYOQQV8621-66-53 13:32:001.0[facility]annHEMATOLOGY 2020-07-24 13:32:004.5[facility] TgyebueRQGYEVYSRE5268-97-94 13:32:000.7[facility] AzbnqyhTYNJMCWXMU7113-11-11 13:32:000.5[facility] HhxodfnCGNBCBCEDI3954-96-77 13:32:000.3[facility] SjafmzjQUDQKDNAXV7423-18-72 13:32:000.1[facility]annCHEM MMNNN0278-21-75 08:13:32413Iusjcgdg HermannCHEM RDFPK7953-96-45 08:13:0026 [facility] MTMSH2730-16-44 08:13:009.23[facility]annCHEM PANEL 2020-07-15 08:13:19001Dsdwfkco HermannCHEM UZOEE7354-07-21 08:13:003.8[facility]CHE[facility] FLOJG2423-35-84 08:13:0097[facility]CHE[facility] XWPJW3925-76-43 08:13:0028[facility]CHE[facility] QHCMY9626-75-49 08:13:009.0[facility]CHE[facility] GGNAN3853-06-45 08:13:0013.8[facility]CHE[facility] QTOQG7011-16-47 08:13:006 [facility]annMOLECULAR LDTPUJDTHG2320-19-16 22:34:00Negative (07/14/20 5:34 PM)[facility]annURINE AND ADVTV1096-02-56 22:34:00None Seen (07/14/20 5:34 PM) [facility] LSVQM4121-55-88 08:37:49012Udzwzify HermannCHEM PANEL 2020-07-14 08:37:0030[facility]annCHE[facility] DEGCS0806-41-50 08:37:009.56[facility]CHE[facility] QDVZN0297-83-26 08:37:63800Zczhlcdk HermannCHEM SKFLL2148-14-61 08:37:003.4[facility]CHE[facility] PFETQ5231-11-63 08:37:0099[facility]CHE[facility] OVCWQ9658-75-73 08:37:0028[facility]CHE[facility] OPNIP6344-74-31 08:37:008.6 [facility] NKKCO8281-92-45 08:37:0012.4[facility]annCHE[facility] PANEL 2020-07-14 08:37:005[facility] NASXNX6886-27-01 01:30:00Light Yellow (07/13/20 8:30 PM)[facility] VOEPFC4982-21-66 01:30:00Clear (07/13/20 8:30 PM)[facility] YCGUOY0986-97-11 01:30:00Colorless (07/13/20 8:30 PM)[facility] RFSBHK7297-83-95 01:30:66496Houbwnsk [facility]annBODY FLUIDS 2020-07-14 01:30:17010Dcqflvjr [facility]annB[facility] IPOOME3839-19-12 01:30:00[place] (07/13/20 8:30 PM)[facility] HOMHWV0451-62-43 01:30:0023[facility] MLPMOB3536-49-28 01:30:0016[facility] CNKQHF6365-53-67 01:30:0053[facility] STAVJP9503-08-59 01:30:006[facility] USSASY0417-89-32 01:30:002[facility]CHE[facility] XTXLT8612-96-95 08:35:07693 [facility]CHE[facility] RNASI0628-80-37 08:35:0029[facility]annCHEM PANEL 2020-07-13 08:35:009.77[facility]CHE[facility] XVSGS4665-21-70 08:35:58065Eggmwheb HermannCHEM MGPUQ4253-31-97 08:35:003.4[facility]CHE[facility] DPMLF1036-26-22 08:35:0097[facility]CHE[facility] VCAHT9572-07-07 08:35:0031[facility]CHE[facility] IRKWG3930-47-66 08:35:008.8[facility]CHE[facility] LWTKO5227-49-95 08:35:008.4 [facility]CHE[facility] FWHCP3277-08-52 08:35:005[facility] FLUIDS 2020-07-13 00:15:00Light Yellow (07/12/20 7:15 PM)[facility] FLUIDS 2020-07-13 00:15:00Clear (07/12/20 7:15 PM)[facility] EZERGR1862-11-78 00:15:00Colorless (07/12/20 7:15 PM)[facility] HIRGZL8666-61-51 00:15:76292Hbmxxhgx HermannB[facility] XAYHNN9108-87-30 00:15:69315Ldxzgqmi [facility] ZBGEIN0631-00-08 00:15:0027[facility] PBCSEN8400-91-33 00:15:0015 [facility] RXCHUA5389-05-74 00:15:0052[facility] FLUIDS 2020-07-13 00:15:003[facility] FGMVSW8195-61-51 00:15:00Few (07/12/20 7:15 PM)[facility] ILYVXE0438-84-33 00:15:00See Note 4(07/12/20 7:15 PM)[facility] OZZBUV5133-56-99 00:15:00[place] (07/12/20 7:15 PM) [facility] VgapcbsYYHEIFOCJW5877-09-82 09:50:0074.0[facility]annHEMATOLOGY 2020-07-12 09:50:0014.8[facility] QdnfklgTPWFIEYSRY3238-16-90 09:50:007.1[facility] AinzmgxSDWVMBPEWS1848-80-61 09:50:003.5[facility] NcskeqpHCLXZLADXS9146-27-26 09:50:000.6[facility] EwdmqozEZEETFGBIB8750-05-17 09:50:004.9[facility] [place] CHCZLRANLY2593-48-20 09:50:001.0[facility] MdgzhhkUUWZCFBPEB7599-38-94 09:50:000.5 [facility] CmimqeiDDRPTALTTU2024-34-04 09:50:000.2[facility]annHEMATOLOGY 2020-07-12 09:50:006.7[facility] DctkgjbNSCNJABOAB6189-84-93 09:50:002.86[facility] SctevesUPTSJUXDRP2563-65-16 09:50:008.3[facility] DszrcsqIENAMJHNDX0722-56-57 09:50:0024.4[facility] AyfuutyJKUQKSOYIU8483-38-56 09:50:0085.1[facility] QOWPGFQEYV8367-70-05 09:50:00 Test Item Value Reference Range Interpretation Comments MCH (test code = MCH) 29.0 pg 27.0-31.0 [facility] JxipfvoTLCRRDLABL1448-72-64 09:50:0034.1[facility]annHEMATOLOGY 2020-07-12 09:50:0014.1[facility] IkezrncLVMGWBVJFS0213-92-40 09:50:33993Hppiqpcr XltlsrjMSCDSMSHTE0318-13-82 09:50:006.6[facility] LrkbijnTEGYSVNOJR2614-18-53 09:50:0013.1[facility] ODSDAU9725-85-91 00:50:00Light Yellow (07/11/20 7:50 PM)[facility] AJBCGT8387-22-16 00:50:00Slight Cloudy (07/11/20 7:50 PM)[facility] BSQLSL1842-44-44 00:50:00Colorless (07/11/20 7:50 PM)[facility] FCDQWW1096-31-80 00:50:54456Jomxwokb [facility]annB[facility] FLUIDS 2020-07-12 00:50:0079[facility] SJFGNR4351-79-16 00:50:0053[facility] QHZSMG7248-24-94 00:50:0010[facility] KRZPOZ5192-32-17 00:50:0033[facility] UDLGKB9620-02-17 00:50:003[facility] ZRNGWL9185-34-32 00:50:001[facility] YNKJHB6166-44-37 00:50:00[place] (07/11/20 7:50 PM)[facility] BjeesomNBOENJDHJO3568-07-75 08:20:006.2[facility] QuzrzzfFGQJQUZXDT2856-92-84 08:20:002.74[facility] NjdyrljTSCNDISCZV4879-98-51 08:20:008.0[facility] DvrgwhdBHDTOBYAAM9016-14-13 08:20:0023.1[facility] VRLKCFVGGG0639-24-71 08:20:0084.4[facility] OlptiniLQSJECZCXZ6528-74-08 08:20:00 Test Item Value Reference Range Interpretation Comments MCH (test code = MCH) 29.2 pg 27.0-31.0 [facility] VlovrjwBDSINRECWO9644-13-24 08:20:0034.7[facility]annHEMATOLOGY 2020-07-11 08:20:0013.9[facility] PcujnbcROEYWFYKYR3624-01-42 08:20:88174Bkhhqrau JdqqotzZZRBNNCURU7369-53-92 08:20:006.8[facility] GvdhucxFBDVRMGSQZ7816-34-65 08:20:0074.0[facility] VfritjmLDINYAEGUB6170-77-46 08:20:0013.2[facility] [place] VOWAVEPZRD5592-98-24 08:20:009.1[facility] EbywaktODAICCAHWD2437-11-82 08:20:003.2 [facility] CpgqvrgLJNXVABMYN0634-29-06 08:20:000.5[facility]annHEMATOLOGY 2020-07-11 08:20:004.6[facility] QhgwfqdCTBORQKBFL4805-39-17 08:20:000.8[facility] WzqjvdwMIHBOUBKRU1712-55-07 08:20:000.6[facility] TkreyobIHVOLQQUKW6702-84-89 08:20:000.2[facility] OweizftAPBICZBKTW7696-24-12 14:52:006.6[facility] [place] UMQQBNWGFO6161-66-15 14:52:002.76[facility] NjcysecCNMVWHQKOU4516-11-82 14:52:00 8.1[facility] SqtsaqmDQJHXEUFCJ1500-44-20 14:52:0023.3[facility]annHEMATOLOGY 2020-07-10 14:52:0084.2[facility] JafbaikHFAHAVOQYL6746-78-49 14:52:00 Test Item Value Reference Range Interpretation Comments MCH (test code = MCH) 29.3 pg 27.0-31.0 [facility] IphtvibXRPSSGZWDG5818-20-74 14:52:0034.8[facility]annHEMATOLOGY 2020-07-10 14:52:0013.7[facility] ZzpqjafXMLHKAEBDB2687-55-52 14:52:34930Irsanwts NwsmoffBHRDXPEAAO4467-24-20 14:52:006.6[facility] MemowsaKWWPRLSHPS9565-12-42 14:52:00Normal (07/10/20 9:52 AM)[facility] AbybjbeAULWWPRCSF3057-84-37 14:52:00 Normal (07/10/20 9:52 AM)[facility] FbyefqxAHHNGISPZZ8221-41-60 14:52:0076.0 [facility] ZaqepbqHMGGBJPWBT0026-92-41 14:52:0011.5[facility]annHEMATOLOGY 2020-07-10 14:52:008.9[facility] MsvdiqcBBYKIUZXDH5372-44-62 14:52:003.1[facility] ZmqfjgbGGSOYQQDPY3149-18-98 14:52:000.5[facility] SgairqxADRQGPEOFP2552-52-98 14:52:005.1[facility] PksvhxlMSCHJEPPJN7251-02-72 14:52:000.8[facility] TMAXIZRYFZ8874-71-97 14:52:000.6[facility] ExxtcrvFWTOTXFNLS9511-53-27 14:52:000.2 [facility]CHE[facility] QPVBY2013-16-14 14:49:005.2[facility]annCHEM PANEL 2020-07-09 14:49:001.5[facility]annCHEM HANBT4742-73-74 14:49:0013[facility]annCHE[facility] UTPQM5060-61-81 14:49:0011[facility]annCHE[facility] XXBLS9049-98-25 14:49:0075[facility]annCHE[facility] RAAFE4514-34-52 14:49:000.4[facility]annCHE[facility] TJCUK0729-88-36 14:49:00 Test Item Value Reference Range Interpretation Comments B/C Ratio (test code = B/C Ratio) 4 1 6-25 [facility] HRSEQ4594-69-29 14:49:003.7[facility]annCHEM PANEL 2020-07-09 14:49:00 Test Item Value Reference Range Interpretation Comments A/G Ratio (test code = A/G Ratio) 0.4 1 0.7-1.6 [facility] GBVUG0199-14-17 14:49:004.1[facility] HermannTOXICOLOGY 2020-07-09 09:57:0015.9[facility] SvrucokAJHNUBKCNL5075-16-00 18:59:0015.4[facility]annBLOOD BANK RPMTGFB4374-10-58 11:40:00Negative (07/06/20 6:40 AM)[facility] HDQAIMJ5475[facility]46-12 11:07:00<0.02[facility]annCHEM PANEL 2020-07-06 11:07:001.8[facility]annCHE[facility] TXCLI7805-37-18 11:07:005.3[facility]annCHE[facility] PICBM6229-63-51 11:07:0048[facility]annCHE[facility] LBUHM0182-52-47 11:07:005.3[facility]annCHE[facility] UMKLU2811-71-85 11:07:001.6[facility]annCHE[facility] TKHIT4041-75-17 11:07:003.7[facility]annCHE[facility] PBEKG6754-53-70 11:07:00 Test Item Value Reference Range Interpretation Comments A/G Ratio (test code = A/G Ratio) 0.4 1 0.7-1.6 [facility]CHE[facility] LCNVU6092-26-53 11:07:0012[facility]annCHEM PANEL 2020-07-06 11:07:0013[facility]annCHEM LFHTZ7389-78-44 11:07:0067[facility]annCHEM DCSHN3436-11-48 11:07:000.[facility]annCHEM DUITW1907-79-13 11:07:00<0.1[facility]annCHEM OJYWF1314-05-74 11:07:000.6[facility] KXJROOEVUZ9008-58-33 11:07:00 Test Item Value Reference Range Interpretation Comments PTT (test code = PTT) 40.6 s 22.9-35.8 [facility] XbthpkzFJDYBLKWTG5411-74-04 11:07:00 Test Item Value Reference Range Interpretation Comments PT (test code = PT) 14.0 s 12.0-14.7 [facility] HjelikyJHAHKQJKGA9361-43-18 11:07:00 Test Item Value Reference Range Interpretation Comments INR (test code = INR) 1.08 1 0.85-1.17 [facility]CHE[facility] BNMTH1878-61-51 13:56:005.4[facility]annCHEM PANEL 2020-05-21 13:56:002.3[facility]annCHEM LGIGN3036-60-98 13:56:0016[facility]annCHE[facility] GBXHC8905-65-97 13:56:0026[facility]annCHE[facility] BBDRU7918-91-07 13:56:0082[facility]annCHE[facility] FJAXQ5614-59-16 13:56:000.4[facility]annCHEM OZWKT1537-26-74 13:56:000.1[facility]annCHEM OAWOZ4797-76-90 13:56:000.3 [facility]annCHE[facility] RUNOS8502-03-16 13:56:003.1[facility]annCHEM PANEL 2020-05-21 13:56:00 Test Item Value Reference Range Interpretation Comments A/G Ratio (test code = A/G Ratio) 0.7 1 0.7-1.6 [facility]CHE[facility] IFLGB1831-46-84 13:56:0041[facility]annHEMATOLOGY 2020-05-21 13:56:005.3[facility] FlbltapRESJEFDAJL9423-23-99 13:56:002.56[facility] TxvcavlKFYVJMDQES5799-30-77 13:56:007.6[facility] VhvtxwiYLRPZVEBQV4620-42-05 13:56:0021.8[facility] ApbumscNVXUMZRJTC0147-89-70 13:56:0085.2[facility] FJYIMLIKAX3986-17-48 13:56:00 Test Item Value Reference Range Interpretation Comments MCH (test code = MCH) 29.6 pg 27.0-31.0 [facility] JxmruetWUEHEWUWBZ8896-49-38 13:56:0034.8[facility]annHEMATOLOGY 2020-05-21 13:56:0013.9[facility] DoqfgqtAQVKDWJWGD9876-03-57 13:56:49447Mrgvhzpx SssuxncXGGUGOCZVV1602-48-22 13:56:007.1[facility] HsyxddmRLQPQPAEGY8388-17-32 13:56:0067.4[facility] WfttyjgNBRJZZHXTV7241-89-92 13:56:0015.2[facility] OZNNZPPCAJ4721-20-73 13:56:008.6[facility] FwfhwlnDIMFJTFOGJ5311-25-44 13:56:007.8 [facility] ZxbhzewHNYJWUIIEU2599-69-78 13:56:001.0[facility]annHEMATOLOGY 2020-05-21 13:56:003.6[facility] WhmwwlvDRAEBDRTFB9270-29-26 13:56:000.8[facility] UqlsfldLENNYMMAFV9814-80-41 13:56:000.5[facility] SdxmsbwHOPUMLTIPU2115-80-25 13:56:000.4[facility] FktchpzDNWUQUJGVJ4566-04-05 13:56:000.1[facility]annCHEM MSONS7459-37-40 13:56:0097[facility]annCHEM JQVGR1198-92-55 13:56:0041 [facility]CHE[facility] WXVJW5740-47-19 13:56:0010.50[facility]annCHEM PANEL 2020-05-21 13:56:92284Zauismbj HermannCHEM GDUPT3591-82-50 13:56:003.2[facility]annCHE[facility] CUABJ5089-72-60 13:56:0094[facility]annCHEM TYMKM7471-78-68 13:56:0028[facility]annCHE[facility] NKJYJ0392-35-57 13:56:009.5[facility]annCHE[facility] TEHVC5528-57-48 13:56:0014.2[facility]annCHE[facility] NXUGZ2507-80-56 13:56:005 [facility]BL[facility]OD BANK UNEPLKH1891-07-73 06:28:00Negative (03/23/20 1:28 AM) [facility] CNAJSWI7039-14-73 06:23:00Product available 2(03/23/20 1:23 AM)[facility] XDZCGP2467-20-56 06:08:39041562Jatbbimy HermannBODY FJYXFT7540-83-91 06:08:669827Dezjqsmw [facility]annB[facility] LTNQHJ0594-15-02 06:08:0037 [facility] YYJSLW5800-55-36 06:08:004[facility] FLUIDS 2020-03-23 06:08:0054[facility] AMEDVG0550-14-28 06:08:003[facility] HRMNHQ6265-54-74 06:08:002[facility] QLGHQI8363-99-51 06:08:00Bloody *ABN*(03/23/20 1:08 AM)[facility] VSJQSW3179-24-54 06:08:00Red *ABN*(03/23/20 1:08 AM)[facility] VNZYPO7187-92-35 06:08:00 Yellow *ABN*(03/23/20 1:08 AM)[facility] TNSQBB8053-76-33 06:08:00 [place] (03/23/20 1:08 AM)[facility]annCHEM LVMMB1823-51-77 06:08:0098[facility]annCHEM CDSPA0933-30-82 06:08:0081[facility]annCHEM QPQDY9267-64-16 06:08:0014.40[facility]annCHEM GNQTE5909-63-09 06:08:27579Aytbdplm [place] CHEM DHLER5395-74-45 06:08:004.8[facility]annCHEM SLUFM8676-47-66 06:08:0090 [facility]annCHE[facility] KJOHJ9420-08-48 06:08:0027[facility]annCHEM PANEL 2020-03-23 06:08:008.7[facility]annCHE[facility] RSMCF5905-83-12 06:08:005.7[facility]annCHEM SUXHP3582-85-32 06:08:002.5[facility]annCHEM ODXLP2306-48-98 06:08:0032[facility]annCHEM OATJC4590-84-59 06:08:0036[facility]annCHEM PCBGZ3284-60-08 06:08:05930Ubckbjgg HermannCHEM FAYAR1675-66-60 06:08:000.5 [facility]annCHE[facility] GRYQV0102-41-23 06:08:0016.8[facility]annCHEM PANEL 2020-03-23 06:08:00 Test Item Value Reference Range Interpretation Comments B/C Ratio (test code = B/C Ratio) 6 1 6-25 [facility]annCHE[facility] EKZBW4053-84-00 06:08:003.2[facility]annCHEM PANEL 2020-03-23 06:08:00 Test Item Value Reference Range Interpretation Comments A/G Ratio (test code = A/G Ratio) 0.8 1 0.7-1.6 [facility]CHE[facility] QZBQP4083-45-48 06:08:003[facility]annCHEM PANEL 2020-03-23 06:08:000.6[facility] HbnwgbnUEPPEDGJTM9989-81-88 06:08:0011.5[facility] LswifefARUCIPVQVA2373-47-63 06:08:002.12[facility] KsukteoORGDNOEHPK8592-75-18 06:08:006.1[facility] RaabclrAWXRBVMUGJ2091-98-49 06:08:0018.4[facility] [place] KPNDQSJPWM5481-44-94 06:08:0086.5[facility] ZafzvvxVZHHDXCAIY5712-76-34 06:08:00 Test Item Value Reference Range Interpretation Comments MCH (test code = MCH) 28.6 pg 27.0-31.0 [facility] TckxnvmMRYONCBEVI5440-27-90 06:08:0033.1[facility]annHEMATOLOGY 2020-03-23 06:08:0015.9[facility] XhqtyktNVSGCKTNCB4765-42-55 06:08:69408Meyuaoiv MdudlswKKQSRMTVWF9870-95-35 06:08:006.8[facility] XuewfkuHMIRWYDPMB9214-01-08 06:08:00 Test Item Value Reference Range Interpretation Comments PT (test code = PT) 13.9 s 12.0-14.7 [facility] GbnjusmTKISPPNKMF2942-38-00 06:08:00 Test Item Value Reference Range Interpretation Comments INR (test code = INR) 1.07 1 0.85-1.17 [facility] FckqyfnSHETUSZPGI2334-12-87 06:08:00Normal (03/23/20 1:08 AM)[facility] IqtshekXTHLAAMAEV1031-25-95 06:08:00Normal (03/23/20 1:08 AM)[facility] [place] OQOJSIQJTH8651-51-84 06:08:0080.9[facility] YxsdsieZKDWGOBOIP1389-79-71 06:08:00 9.1[facility] FltrlvhCQBTOJQFFH5357-14-11 06:08:007.3[facility] HermannHEMATOLOGY 2020-03-23 06:08:002.0[facility] FxcdvraZBEJZMXUDF3704-13-99 06:08:000.7[facility] JjnttrzZOOCISNHAU0502-16-43 06:08:009.3[facility] HtdxvqeHQYORGPIJB5238-73-02 06:08:001.0[facility] IzgfzbrGYWVVDSKAC5858-79-19 06:08:000.8[facility] [place] TEFZBLHQRZ1237-75-16 06:08:000.2[facility] AbsfikfSLDEGDUSUU4704-76-23 06:08:000.1 [facility] OniedffMNTIYYYICV9187-04-11 06:08:002+ *ABN*(03/23/20 1:08 AM)[facility] TzyjlgrCVGPAQFOJD2048-99-66 06:08:001+ *ABN*(03/23/20 1:08 AM)[facility] [place] SSGGDRUEFJ3274-66-72 06:08:001+ *ABN*(03/23/20 1:08 AM)[facility]annHEMATOLOGY 2020-03-23 06:08:00Rare *ABN*(03/23/20 1:08 AM)[facility]annCHEM PANEL 2020-02-03 21:27:0085[facility]annCHEM EEPAW9112-95-10 21:27:0058[facility]annCHEM WXTWE4317-83-17 21:27:0012.00[facility]annCHEM LCQRW8391-86-10 21:27:95443Jyyyrtro HermannCHEM NUMIK6725-42-69 21:27:004.2[facility]annCHEM CUKUQ8936-13-64 21:27:0092[facility]annCHEM LDGYC4385-80-44 21:27:0026 [facility]annCHE[facility] PABBK6891-46-84 21:27:008.3[facility]annCHEM PANEL 2020-02-03 21:27:005.5[facility]annCHEM AUFNY9504-99-78 21:27:002.4[facility]annCHEM EQJKF9504-28-26 21:27:0018[facility]annCHEM FUQSG2441-94-18 21:27:0020[facility]annCHEM SNZKH8046-77-14 21:27:0076[facility]annCHEM RHBOG5579-17-58 21:27:000.3[facility]annCHEM NQQKA3852-26-84 21:27:0015.2 [facility]annCHE[facility] GIIKB2877-34-88 21:27:00 Test Item Value Reference Range Interpretation Comments B/C Ratio (test code = B/C Ratio) 5 1 6- [facility]annCHE[facility] QHFWM7276-77-55 21:27:003.1[facility]annCHEM PANEL 2020-02-03 21:27:00 Test Item Value Reference Range Interpretation Comments A/G Ratio (test code = A/G Ratio) 0.8 1 0.7-1.6 [facility]annCHE[facility] ANHIS9590-06-24 21:27:004[facility]annHEMATOLOGY 2020-02-03 21:27:008.7[facility] HpaaksjAINROKJZVY0884-81-12 21:27:002.94[facility] ZgqluwqOXQNKTDMWT5189-00-93 21:27:008.4[facility] IswjsbgXAXRMWIHGV8911-00-31 21:27:0025.0[facility] CnwgehaPONPBMYBNV9327-06-31 21:27:0084.9[facility] [place] PTMSUHOPDF7569-14-01 21:27:00 Test Item Value Reference Range Interpretation Comments MCH (test code = MCH) 28.7 pg 27.0-31.0 [facility] JhyesveENZFSSOLGV5005-85-97 21:27:0033.8[facility]ann[facility]MATOLOGY 2020-02-03 21:27:0014.4[facility] IxsncgiKEPIFRPCUO5742-86-80 21:27:11262Fwltlaum VaydyobOBYNUSMNDZ7096-28-68 21:27:007.6[facility] EthilafUGKENCQLNM7574-51-04 21:27:007.7[facility] WsrazzuLHXTMAHSMO1312-11-93 21:27:000.4[facility] DHGZMMSBDE3890-87-33 21:27:000.3[facility] RdynqazZZVSSOTHGF4088-06-18 21:27:000.2 [facility] FfmguzjMUPBNCVLJA4823-92-80 21:27:0086.0[facility]annHEMATOLOGY 2020-02-03 21:27:003.0[facility] CpsibwqCHTDGVOYEF2454-93-48 21:27:003.0[facility] TgwvdwjPOIOLETLEV3988-79-78 21:27:004.0[facility] EjeyspjCLTGQTREYY5622-91-93 21:27:002.0[facility] PdoblamKIVHJPWVBZ7575-93-73 21:27:002.0[facility] KFRMEQZKSF5441-52-58 21:27:00Normal (02/03/20 4:27 PM)[facility] 2020-02-03 21:27:00Normal (02/03/20 4:27 PM)[facility] ZcqokddRHKGIKGRWB2208-90-70 21:27:001+ *ABN*(02/03/20 4:27 PM)[facility] SjanmgiBSCJIEAJUX2843-97-87 21:14:00 Not Detected (02/03/20 4:14 PM)[facility] ICLGVN4481-06-24 18:30:00 Colorless (11/04/19 12:30 PM)[facility] FYYSWS3192-07-11 18:30:00Clear (11/04/19 12:30 PM)[facility] TBUQLZ0969-92-72 18:30:0011[facility] IBBPPZ5618-39-73 18:30:0011[facility] LEZLCR2543-61-55 18:30:0011[facility] WEZNHA5351-17-22 18:30:0056[facility] VIDUVI1320-29-31 18:30:0033[facility] MTVNDH7886-52-49 18:30:00[place] (11/04/19 12:30 PM)[facility]annCHEM WPSVW2582-65-97 18:00:35022Ntynxmgh HermannCHEM KAZPW7161-62-73 18:00:0040[facility]annCHEM WVDNM2793-55-32 18:00:0010.60[facility]annCHE[facility] NRTZK9590-61-35 18:00:05984Kbiklxjx [place] CHEM RNBMD3064-44-88 18:00:003.8[facility]annCHEM EPCKZ6022-05-55 18:00:08507 [facility]annCHE[facility] XGJHE0471-62-53 18:00:0032[facility]annCHEM PANEL 2019-11-04 18:00:009.3[facility]annCHE[facility] GDRMS1116-13-44 18:00:0011.8[facility]annCHE[facility] AWSQG8628-84-78 18:00:005[facility] TqrlpubCDZBKCEDQY3548-92-54 18:08:0010.2[facility]annCHEM ANPBY1319-35-40 13:45:25227Phdlklbb HermannCHEM YMMLK1900-20-32 13:45:0029[facility]annCHE[facility] ETONS6695-18-19 13:45:009.0 [facility]annCHE[facility] QDDEM3649-34-28 13:45:0011.4[facility]annCHEM PANEL 2019-11-03 13:45:005[facility] NqybnqfEGBBDUSAHG9483-62-97 13:45:004.3[facility] RhvdyklSFOSOQQWKY1492-45-48 13:45:003.00[facility] QgwnjrbFDPPZUFYJU7698-29-38 13:45:008.4[facility] NqckcbqEXVFNRMOAO2504-73-42 13:45:0025.3[facility] WGIFWSLFKW7918-94-27 13:45:0084.3[facility] BseylonWFBBORLPSN1334-25-35 13:45:00 Test Item Value Reference Range Interpretation Comments MCH (test code = MCH) 28.2 pg 27.0-31.0 [facility] HmpdoriCFMEDSGWQN7573-49-85 13:45:0033.4[facility]annHEMATOLOGY 2019-11-03 13:45:0014.5[facility] PxyndroQFVDWFDXUC5410-48-39 13:45:14586Dcaeugxv AomcdmmUBSYZXVNMH4663-37-25 13:45:006.5[facility] AgayglrYTHOGAJNRD5612-38-15 13:45:0066.4[facility] KvacncyYBJUMDAYGS7998-65-39 13:45:0019.6[facility] XCHUBPYVTO4446-26-36 13:45:009.3[facility] MxbqyaeHVECHSJGSQ5023-95-92 13:45:003.7 [facility] GeqrlluUGCJQUSNON8775-64-36 13:45:001.0[facility]annHEMATOLOGY 2019-11-03 13:45:002.8[facility] PedwsurBZZHAAFTWF2705-05-11 13:45:000.8[facility] CkkuawgWEJDASDUBW5421-17-63 13:45:000.4[facility] LkmyccpEDTZCJWQOQ9864-88-93 13:45:000.2[facility] HermannCHEM FBTPN0784-53-05 13:45:00949Bsckxcqo HermannCHEM VENOU7312-95-41 13:45:0035[facility]annCHEM FYYUB9234-13-38 13:45:009.71 [facility]annCHEM CXDVE4113-91-48 13:45:08777Gdbwgqdq HermannCHEM PANEL 2019-11-03 13:45:003.4[facility] UljjjgrFXRDFJQFHMIT5634-03-57 13:25:51770Jsumbuxi TwfmvwyCOGUFUPZCLHA7651-49-21 13:25:003.7[facility] IunzeomOBDPBLPWOASN3595-69-53 13:25:0099[facility] NrpkjipVCJGTSPHGBEI4782-28-50 13:25:24795Tanbrewh [place] KCCMZSXWDESE5344-39-48 13:25:0042[facility] VwnvsulFUQABPEZDVQP5646-83-76 13:25:00 9.35[facility] VjhgncjLELJEXSNENJD4708-06-06 13:25:0032[facility] ZFSUBAFIYYID5285-59-76 13:25:008.8[facility] DknwahpATFYITECXBDL8727-56-96 13:25:008.7[facility] EsemnteWZJRHKWEUTEI1267-17-05 13:25:006[facility] OMCPZYNGRX9154-89-63 17:58:0010.6[facility]annBODY BLANKO9669-79-62 15:00:00 Colorless (11/01/19 9:00 AM)[facility] CIUIMZ4555-79-66 15:00:00Slight Cloudy (11/01/19 9:00 AM)[facility] SWQCRO9327-72-50 15:00:00037 [facility] ZLCLLG3239-52-87 15:00:0054[facility]ann[facility] FLUIDS 2019-11-01 15:00:0020[facility]ann[facility] UTBKTD3150-81-60 15:00:0041[facility] PQSHUS9501-16-06 15:00:0035[facility]ann[facility] BOMVKA4890-86-71 15:00:004[facility] DRGOMY1817-42-14 15:00:00[place] (11/01/19 9:00 AM) [facility] VLVTTQ9167-52-36 18:35:00Colorless (10/31/19 12:35 PM) [facility] IWOWQP4725-28-09 18:35:00Slight Cloudy (10/31/19 12:35 PM) [facility] MDQMRC5086-91-92 18:35:12077Xyfajdvl HermannBODY FLUIDS 2019-10-31 18:35:000[facility]ann[facility] HFLOZW3917-35-50 18:35:0035[facility]ann[facility] YDAKBK4338-21-01 18:35:0021[facility]annB[facility] VAOMQH3205-54-53 18:35:0043[facility]annB[facility] KQKMAU0440-48-04 18:35:001[facility]annB[facility] XQNTOF4784-35-64 18:35:00[place] (10/31/19 12:35 PM)[facility]annCHEM PANEL 2019-10-31 10:35:004.3[facility] HermannCHEM GWWFP2135-24-70 10:35:002.0[facility] MioijgzZYZXSJFLNQ8305-35-55 10:35:006.3[facility] RxesnywQOSGSCQBHJ8287-92-95 10:35:002.76[facility] MhqcxucSNNKBBHNAX7581-05-18 10:35:008.1[facility] TPSIHUPHIJ1221-30-69 10:35:0023.5[facility] FhqhzclBBTUXFICRP0207-31-85 10:35:00 85.2[facility] KraibgvTABDIRCYJH1631-09-47 10:35:00 Test Item Value Reference Range Interpretation Comments MCH (test code = MCH) 29.2 pg 27.0-31.0 [facility] CccdxcrUUIEPATEYH9614-87-68 10:35:0034.3[facility]annHEMATOLOGY 2019-10-31 10:35:0014.5[facility] MvszzhuYEGYCSZTBT1540-42-12 10:35:54392Arzizekw MhhdofhDIMPLXATND7567-12-00 10:35:007.0[facility] JjwnfnaGJJOXEJGKL1870-07-54 10:35:0077.7[facility] YdehmigVFVCEZYPBY8205-13-39 10:35:0010.2[facility] SACECTJPAC9767-20-22 10:35:0010.0[facility] HwvdbqtDEUSFHTNTM5656-28-96 10:35:00 1.7[facility] TgevdttVEBGNCGKTH4887-06-78 10:35:000.4[facility]annHEMATOLOGY 2019-10-31 10:35:004.9[facility] KnxahvxXOMSUDILDG7270-65-05 10:35:000.6[facility] QcyhaenWKVMTZAAAM4331-29-75 10:35:000.6[facility] CylehibBYGYEHXEFQ0468-00-60 10:35:000.1[facility] HermannMOLECULAR FHMZGOMDJY6360-32-64 19:34:00Nasophrngl Swb *NA*(10/30/19 1:34 PM)[facility]annMOLECULAR THHLNATSLD3289-93-37 19:34:00 Negative *NA*(10/30/19 1:34 PM)[facility]annMOLECULAR YXPYPYCNLM3338-87-81 19:34:00Negative *NA*(10/30/19 1:34 PM)[facility]annMOLECULAR DIAGNOSTIC 2019-10-30 19:34:00Positive *ABN*(10/30/19 1:34 PM)[facility] IMIPENEM:SUSC:PT:ISOLATE:ORDQN:WWL7253-00-42 18:00:00Enterococcus Species [facility]annIMIPENEM:SUSC:PT:ISOLATE:ORDQN:JEB4971-99-60 18:00:00Pseudomonas putidaMemorial HermannCHEM IRXDL3076-48-81 17:21:000.6[facility] HermannCHEM PANEL 2019-10-30 10:56:002.1[facility] HermannCHEM TKCHH2853-81-80 10:56:004.5[facility] YduhqnmSNODLKFSWQ6279-78-32 10:56:006.7[facility] WqfgliiUYXYQXYLGE2140-89-14 10:56:002.47[facility] QnpoeqtIVKQUBAPNU4566-00-38 10:56:007.2[facility] CJZFGULQUN2218-34-19 10:56:0021.1[facility] NanvzbqKEUYMLAVRV6708-31-20 10:56:00 85.2[facility] BbpiwloOUWIROCZEE3598-50-75 10:56:00 Test Item Value Reference Range Interpretation Comments MCH (test code = MCH) 28.9 pg 27.0-31.0 [facility] LrztvtnQJUMTRMCIF6161-48-10 10:56:0034.0[facility] HermannHEMATOLOGY 2019-10-30 10:56:0014.6[facility] UejbeubIHMXZEWEEE5367-71-22 10:56:26902Zjdrielg VraletbIIUHODZQIR6469-72-21 10:56:007.2[facility] HsycngdPAGHNLDHMU2851-89-38 10:56:0087.8[facility] EideatvKZCXUQXAUP9805-14-00 10:56:003.9[facility] VCCKYWNZZU9814-25-47 10:56:006.8[facility] QunxxzxDSZIBAAJZD2181-17-74 10:56:001.1 [facility] VonplsyEMGGTUEIFE3754-87-91 10:56:000.4[facility] HermannHEMATOLOGY 2019-10-30 10:56:005.9[facility] BjiyuiaCUEMZDOPDN1140-33-34 10:56:000.3[facility] PzxybxzZBSSTTHUDR6892-77-37 10:56:000.5[facility] SstenuvCZXYEROMYJ6116-87-63 10:56:000.1[facility] HermannCHEM OZYYF6093-86-82 22:52:002.2[facility]annCHEM RVTRU1475-86-28 22:52:005.8[facility] HermannCARDIAC EJPFQYV9533-35-96 10:47:00 0.02[facility]annCARDIAC IEQADEF0942-04-00 07:19:000.02[facility] CARDIAC PVZTCTM6079-25-14 03:06:00<0.02[facility]annCHEM HWOQK9438-44-73 03:06:005.5[facility]annCHEM ADOBK8263-85-62 03:06:002.3[facility]annCHEM ANGJC7349-16-46 03:06:0022[facility]annCHEM JFIHT9674-72-49 03:06:0050 [facility]annCHEM WGLCQ0989-29-74 03:06:0068[facility]annCHEM PANEL 2019-10-29 03:06:000.6[facility]annCHEM HLPLH5676-26-88 03:06:00 Test Item Value Reference Range Interpretation Comments B/C Ratio (test code = B/C Ratio) 5 1 6-25 [facility]annCHEM PLZKC4173-02-59 03:06:003.2[facility]annCHEM PANEL 2019-10-29 03:06:00 Test Item Value Reference Range Interpretation Comments A/G Ratio (test code = A/G Ratio) 0.7 1 0.7-1.6 [facility] ZcgqhmwLPLLVCYGPE9925-37-02 03:06:00Normal (10/28/19 9:06 PM)[facility] VzeuvkhQBWMPHTIVA1596-78-60 03:06:000.1[facility] HermannCHEM FGNBE2695-39-50 10:56:0093[facility]annCHEM YGJKP4299-50-66 10:56:0026[facility]annCHEM BGXCQ0090-35-53 10:56:007.85[facility]annCHEM UGFSS3168-31-42 10:56:84182 [facility]annCHEM PSJRG5866-55-51 10:56:003.7[facility]annCHEM PANEL 2019-08-20 10:56:39382Mjrhwmjk HermannCHEM DHVBM2230-04-23 10:56:0025[facility]annCHEM LEHAO6527-82-83 10:56:009.2[facility]annCHEM TCRQV9678-22-50 10:56:007[facility]annCHEM NLYAC8558-09-96 10:56:0014.7[facility] FGMXTHKHMO3296-12-58 10:56:008.6[facility] SuiwrtzDOBDXYCVPU5550-73-03 10:56:00 3.37[facility] YqegdwlZYTTPUIWOG7168-59-68 10:56:0010.2[facility] HermannHEMATOLOGY 2019-08-20 10:56:0029.9[facility] BuzcafbQYVDYXBPVT1279-48-80 10:56:0088.7[facility] JecktkdWCKQIOPGTP7341-04-22 10:56:00 Test Item Value Reference Range Interpretation Comments MCH (test code = MCH) 30.1 pg 27.0-31.0 [facility] HsfdgrtCJHFYSSPTG4801-50-73 10:56:0033.9[facility] HermannHEMATOLOGY 2019-08-20 10:56:0013.7[facility] XyervgwPBDGVEEMQK9582-99-26 10:56:61921Oyrdvhgu QbsrsrwEFZTSPPIVE3632-42-30 10:56:006.7[facility] ZlkywjqMWGRAWSAPP8496-03-52 10:56:0079.5[facility] SlavtltNMHXBSYMDJ8813-88-97 10:56:0012.8[facility] AUZOBOXLIS2671-19-46 10:56:006.3[facility] ZbblugoYVXPDRSVAT5964-07-54 10:56:000.6 [facility] HwdjihoMUKCYACNEO2544-35-25 10:56:000.8[facility] HermannHEMATOLOGY 2019-08-20 10:56:006.8[facility] MxvxclgMDJPYJFRDZ0423-31-69 10:56:001.1[facility] SgpxcdtUCGQJCROMN9434-32-82 10:56:000.5[facility] KhhggxuKIGUBVSMQV7559-40-61 10:56:000.1[facility] HermannCHEM WAJWK6654-78-97 10:14:26604Svsbcpeu HermannCHEM VBKUN8828-23-37 10:14:0018[facility]annCHEM BIJMI9419-66-30 10:14:007.09 [facility]annCHEM PBOKG1154-20-18 10:14:12642Kcjirnmm HermannCHEM PANEL 2019-08-19 10:14:003.6[facility] HermannCHEM JYRBE6201-37-51 10:14:66455Rktripwb HermannCHEM LFILP3131-12-02 10:14:0028[facility]annCHEM JXSDM2129-81-46 10:14:0013.6[facility] HermannCHEM UOUNW3536-48-71 10:14:009.5[facility] HermannCHEM FCLHA3672-18-35 10:14:008[facility] PjeoqtnFMRBYOCWCE0632-09-76 10:14:007.7 [facility] AkhiqkfSISIJSAYYA5694-86-97 10:14:003.61[facility] HermannHEMATOLOGY 2019-08-19 10:14:0010.8[facility] WxwzzyzECKBEDGTEZ5340-45-63 10:14:0031.7[facility] FdcytgcIUKFPGBONW3991-89-99 10:14:0087.7[facility] PpvfivsQJXTHDQERZ7976-28-43 10:14:00 Test Item Value Reference Range Interpretation Comments MCH (test code = MCH) 30.0 pg 27.0-31.0 [facility] IhursccPOOTHPBMPS0082-65-63 10:14:0034.2[facility] HermannHEMATOLOGY 2019-08-19 10:14:0014.0[facility] EzdniitLSULKYIVOK8962-05-29 10:14:61524Hivenblj TpxdjhkUPHSNEXXGN9345-42-49 10:14:007.0[facility] CygtouuOTOJDTOKEA9429-68-13 10:14:0075.0[facility] SuohgqjYVRCWFHDWT8553-04-57 10:14:0015.4[facility] JIGDBQGTUW0097-63-16 10:14:007.1[facility] XmfnefpWKWPCRBEIM8449-67-52 10:14:001.4 [facility] PzkecrlTYEYAZKEBA7572-00-38 10:14:001.1[facility] HermannHEMATOLOGY 2019-08-19 10:14:005.8[facility] SinfpukEAQQYPWKWA8450-55-72 10:14:001.2[facility] OnylfbpGBNQZZHMJA6619-57-23 10:14:000.5[facility] IixzlhlKTOFHPBAFQ5444-93-21 10:14:000.1[facility] WmuwhvhINMYGFXRWF8625-32-81 10:14:000.1[facility] HermannCHEM JGTBQ2860-76-85 10:24:97512Ofrmxisf HermannCHEM MEHUQ5574-66-57 10:24:0034 [facility]annCHEM ADDUW1374-20-45 10:24:0011.00[facility] HermannCHEM PANEL 2019-08-18 10:24:31125Gbwdeoqn HermannCHEM KNICB6422-66-82 10:24:003.6[facility] HermannCHEM VKWKA3495-29-01 10:24:07433Irucxiae HermannCHEM YDGVG9528-58-30 10:24:0028[facility]annCHEM DMLFO7316-95-56 10:24:0011.6[facility] HermannCHEM QRPGN1892-90-90 10:24:009.0[facility] HermannCHEM LDEIO9093-16-34 10:24:005 [facility] RdhtrsqAMNFBXAQAP5754-64-36 10:24:006.9[facility] HermannHEMATOLOGY 2019-08-18 10:24:003.13[facility] WwydlhqFZCOMBNJJH9739-22-55 10:24:009.3[facility] MmrytcgUCXRCOYDNS4935-84-91 10:24:0027.4[facility] HvidtyhWINBUWTSHI7820-29-35 10:24:0087.7[facility] NxenzleOEUFYAYPKM3659-92-05 10:24:00 Test Item Value Reference Range Interpretation Comments MCH (test code = MCH) 29.6 pg 27.0-31.0 [facility] AyitgzxFNWUDKPZDF7360-70-73 10:24:0033.8[facility] HermannHEMATOLOGY 2019-08-18 10:24:0014.0[facility] WhoigxfVCWHBJWGZH8428-76-44 10:24:86006Enplffhq XmetspsAYXSDITLKA3509-75-82 10:24:006.9[facility] ZvbvmgeQOGZYLAVQR7415-33-04 10:24:0078.2[facility] RvpoxamGXWXIHDZZI7635-86-69 10:24:0012.2[facility] TLMIVILQQI5125-56-42 10:24:006.6[facility] ZgrvnydOWYJERLKDG5199-64-11 10:24:002.4 [facility] QhpvcvwGTINXHLVWG1823-91-26 10:24:000.6[facility] HermannHEMATOLOGY 2019-08-18 10:24:005.4[facility] TyqjbikQTPNPCOMZC2655-82-81 10:24:000.8[facility] IoclgthECYMPLFHOU7598-12-34 10:24:000.5[facility] JbldriaBWJFYNEEOK1603-05-14 10:24:000.2[facility] KyaqonuQWKDLVBMOC0222-90-10 14:31:00Negative *NA*(08/17/19 8:31 AM)[facility] RibnqskNXGGKLJUJJ2173-26-91 19:35:00 Test Item Value Reference Range Interpretation Comments PT (test code = PT) 12.2 s 12.0-14.7 [facility] GvbtmutNITALSOLOA5583-37-11 19:35:00 Test Item Value Reference Range Interpretation Comments INR (test code = INR) 0.92 1 0.85-1.17 [facility] TcxawjqUQSTDQLXNG5319-35-79 19:35:00 Test Item Value Reference Range Interpretation Comments PTT (test code = PTT) 37.1 s 22.9-35.8 [facility] HermannCHEM GCJPW9213-44-26 10:20:003[facility] HermannCHEM PANEL 2019-04-07 10:20:0096[facility] HermannCHEM AKWSE0646-42-53 10:20:0068[facility] HermannCHEM SULYI3755-87-53 10:20:008.7[facility] HermannCHEM BTEKA5780-66-64 10:20:0016.7[facility] HermannCHEM DKFVN5135-76-22 10:20:23010Onrfoblk HermannCHEM ZAEVM1449-48-80 10:20:0025[facility]annCHEM UGUOE1422-59-33 10:20:003.7 [facility]annCHEM VMLSM7248-46-95 10:20:0093[facility] HermannCHEM PANEL 2019-04-07 10:20:0015.20[facility] HermannCARDIAC JIQRBFP1529-88-97 14:42:000.03 [facility]annANEMIA AKUAX5029-47-78 08:16:93213Jwglohco HermannCARDIAC PTTICUY3658-93-88 08:16:000.04[facility] HermannCHEM RBVRX4100-29-10 08:16:001.8 [facility]annCHEM CRMRW7377-19-74 08:16:003[facility]annCHEM PANEL 2019-04-06 08:16:00 Test Item Value Reference Range Interpretation Comments A/G Ratio (test code = A/G Ratio) 0.6 1 0.7-1.6 [facility]annCHEM HBKXV0933-28-84 08:16:00 Test Item Value Reference Range Interpretation Comments B/C Ratio (test code = B/C Ratio) 4 1 6-25 [facility]annCHEM SRBTX9817-74-37 08:16:003.4[facility] HermannCHEM PANEL 2019-04-06 08:16:000.4[facility] HermannCHEM KUGGQ1226-63-59 08:16:0018.3[facility] HermannCHEM QYCHC2537-02-27 08:16:0093[facility]annCHEM HKJKG0177-83-09 08:16:0023[facility]annCHEM GXHHA1894-94-53 08:16:008.1[facility] HermannCHEM DWSPE0876-49-65 08:16:0057[facility]annCHEM ZTDMO3046-02-70 08:16:0060 [facility]annCHEM VDFND0908-00-85 08:16:52861Qxemnebj HermannCHEM PANEL 2019-04-06 08:16:0015.90[facility] HermannCHEM KYVLB0495-75-11 08:16:004.3[facility]annCHEM NBFZV2902-36-44 08:16:0021[facility]annCHEM PCKFH8749-16-72 08:16:0076[facility]annCHEM FWDQY9988-28-80 08:16:0016[facility]annCHEM TUEFR9758-88-71 08:16:005.6[facility] HermannCHEM QDUIW3034-73-34 08:16:002.2 [facility] HyushxiYBOHQTGJTW4741-74-78 08:16:00 Test Item Value Reference Range Interpretation Comments PTT (test code = PTT) 41.5 s 22.9-35.8 [facility] SiyrmqoLTGBXYYKXO5646-68-66 08:16:00 Test Item Value Reference Range Interpretation Comments PT (test code = PT) 14.4 s 12.0-14.7 [facility]hEFYBCREVAP7212-63-61 08:16:00 Test Item Value Reference Range Interpretation Comments INR (test code = INR) 1.14 1 0.85-1.17 [facility] HgtlexhQCQREEHIIU3580-77-08 08:16:0015.5[facility] HermannHEMATOLOGY 2019-04-06 08:16:52296Oroqbhcw BhmxyixZZELPERREX9776-11-80 08:16:00 Test Item Value Reference Range Interpretation Comments MCH (test code = MCH) 28.7 pg 27.0-31.0 [facility] BwsucfiKJKOMOYMVY5562-62-58 08:16:0034.2[facility] HermannHEMATOLOGY 2019-04-06 08:16:0084.1[facility] SryrgleJTPZLXTRWT7157-71-71 08:16:0011.4[facility] NzodihyTHHMATNPGW3568-97-74 08:16:0033.2[facility] LfdufvlPWLZUSWBAD2615-46-87 08:16:0010.2[facility] AqymdrlMAILFOCYEV1123-15-05 08:16:003.95[facility] SIZQAZJSPN0612-20-79 08:16:008.3[facility] ZwfwynxJPXNCGPLRQ5593-73-35 08:16:00 84.8[facility] FcfhqxcRXPUTPKZSI6202-80-32 08:16:000.1[facility] HermannHEMATOLOGY 2019-04-06 08:16:000.5[facility] EvhbqtpRKNJDVCZTI3696-91-98 08:16:001.2[facility] ErgnywhLHQRIXIZHG8186-90-19 08:16:006.5[facility] DepuqhrOOZCXTTXSM9882-92-55 08:16:007.0[facility] QlumsztNOSSPOAOGL9019-66-24 08:16:000.1[facility] YOTUAKJSVQ0599-90-92 08:16:000.7[facility] SejsixqMTCIKVKSMN2957-69-71 08:16:000.7 [facility] WnigzpcEMHIBHVSIF0127-29-14 08:16:008.7[facility] HermannCHEM PANEL 2019-04-06 04:17:000.3[facility] HermannCARDIAC CPSWQOM3191-93-69 02:25:000.03 [facility] UyjwvneCTHXMN4144-57-29 02:25:00 Test Item Value Reference Range Interpretation Comments CHD Risk (test code = CHD Risk) 3.10 1 4.00-7.30 [facility] CcxmvhsQPVIFJ0673-76-21 02:25:00 Test Item Value Reference Range Interpretation Comments VLDL (test code = VLDL) 21 1 [facility] XrvjvkqWNMCYV9982-30-73 02:25:0058[facility] UkesxjnYDYJKT3346-79-77 02:25:11426Plprdwac IkdlrfxAWRLNQ3470-96-09 02:25:42729Imsrgqrt HermannLIPIDS 2019-04-06 02:25:21951Ewhjrexr HermannSPECIAL IWYGNVAIZ0452-54-54 02:25:004.0 [facility] HermannCHEM HAIVS7160-84-51 12:41:006.1[facility] HermannELECTROLYTES 2018-07-23 12:41:0014.8[facility] CenjprwWUHJBCFCTSSK1951-90-67 12:41:004[facility] SvjvhhmCINYVJWJRKEU9945-19-73 12:41:0027[facility] GnhkexoWTUFAZPVUUEE7449-97-57 12:41:007.9[facility] YuwwlcpZAVFCTODRLOZ3590-48-09 12:41:0012.90[facility] OHXBEBYBVOIW4242-53-04 12:41:0060[facility] NlvxijrSFGPFEHHYLEB9573-93-84 12:41:00 139[facility] WakopchCHGSXTMISNYR2788-59-88 12:41:0093[facility] HermannELECTROLYTES 2018-07-23 12:41:98395Ngvmwlvw PynmuzcDMMIGLTFZBBM2209-84-74 12:41:004.8[facility] RterunfCOYJZMVCLC1353-10-64 12:41:0035.3[facility] GassxhbXWLNJEDKEA3208-63-94 12:41:007.8[facility] EzjmmklMUVDQNXNDT5758-16-80 12:41:0022.0[facility] WQUXGTVKUU8863-45-04 12:41:002.68[facility] JotqalrPJJONKYFQC2590-45-08 12:41:00 4.4[facility] MufmvuiRQTNZEWLVW7869-92-10 12:41:0014.5[facility] HermannHEMATOLOGY 2018-07-23 12:41:0082.1[facility] VhtwydtFNDCJPMNVI1865-56-13 12:41:00 Test Item Value Reference Range Interpretation Comments MCH (test code = MCH) 29.0 pg 27.0-31.0 [facility] EcgpxpdNCBHHCQLLU9937-86-86 12:41:43279Sfvluhcx HermannHEMATOLOGY 2018-07-23 12:41:007.3[facility] IlvixwiXNGMMMYCNK4074-68-48 12:41:000.4[facility] JjvwwocWMMIFEPSMF2614-45-85 12:41:000.2[facility] SmxyvvsDQJIBVHQPO9870-68-14 12:41:009.7[facility] DubgtyyQWRTCTUNUL5859-43-91 12:41:003.7[facility] ACDWLARMFC3619-53-75 12:41:000.8[facility] GeoaxyoAXKQQAVJFF9569-41-59 12:41:003.0 [facility] JtzcsjpDLFKVMRCVI1167-37-19 12:41:000.8[facility] HermannHEMATOLOGY 2018-07-23 12:41:0067.6[facility] UuiuwtwFATMNGDDTM4682-04-11 12:41:0018.2[facility] HermannCHEM OPQXM1458-92-69 11:17:002.5[facility] HermannCHEM SXGBI0578-34-65 11:17:008.3[facility] VhkhpneCJKWNLBMCUPL9045-34-19 11:17:0022[facility] HEXCIWZVOSFU9872-93-27 11:17:007.5[facility] KjuvxzvZRXONPLGAUND8340-45-81 11:17:0098[facility] YgtvjhdBJSBPAYUBNLV8212-53-12 11:17:002[facility] EZKRQDVWJTHS3424-21-49 11:17:0019.20[facility] TdztvkuXZRDWWJXCURL2016-55-86 11:17:0097[facility] XcqfbbpUZNCLXYHMMRN6028-09-72 11:17:004.7[facility] NELINYSDLGKL3723-79-21 11:17:31279Jehxqtbr KtswhwzAFGNUSKPLEXA9710-08-08 11:17:0082[facility] NgmijtpFUHMFTZSRTLC6691-32-11 11:17:0019.7[facility] YUXVTMEKWD3823-15-61 11:17:004.9[facility] LmfeqqdIXLBIRETVK4931-61-65 11:17:00 2.85[facility] LfqalaiGBMRMLUJRY4062-89-92 11:17:0082.3[facility] HermannHEMATOLOGY 2018-07-22 11:17:00 Test Item Value Reference Range Interpretation Comments MCH (test code = MCH) 28.8 pg 27.0-31.0 [facility] YcogmjsEMSYSTXLPB2442-15-99 11:17:008.2[facility] HermannHEMATOLOGY 2018-07-22 11:17:0023.4[facility] XaevulsXNAYSFHJYC9821-79-55 11:17:0015.0[facility] KpparypLOEZXLWXMZ4661-92-83 11:17:0035.0[facility] VothlreBNEQYJBUXV1495-22-19 11:17:007.4[facility] HiyzqjhSSEYVSLIPX8114-54-30 11:17:34426Tmlhffru [facility] GJNDTCARTL1326-36-73 11:17:0020.3[facility] RaglhaeMCCBHGPWTX8794-50-94 11:17:00 1.0[facility] ZiiphjeVZYNUMLBZU4600-90-66 11:17:0067.1[facility] HermannHEMATOLOGY 2018-07-22 11:17:003.3[facility] TsjbltvTPAGHVVUMH4312-08-03 11:17:003.1[facility] FohriqzRCZIJRSXHD8184-40-14 11:17:008.5[facility] GrpgnwfUDZDEGFVQF0669-01-80 11:17:000.4[facility] RhotsqtLNRYXAUIGS7051-51-18 11:17:001.0[facility] BQCTLGWGMZ0401-57-80 11:17:000.1[facility] LjtorsuSXQMDMYUAA7612-15-06 11:17:00 Negative *NA*(07/22/18 6:17 AM)[facility] HermannCARDIAC SXICFEG9247-64-16 02:46:3079088Gbnaytav HermannCARDIAC YZMGXKQ9813-96-49 02:46:00<0.02[facility] HermannCARDIAC OVADIEJ8034-23-09 02:46:0091[facility] HermannCHEM EESKG9388-74-50 02:46:0095[facility] HermannCHEM CSGJL9774-07-73 02:46:003.2[facility] HermannCHEM COBMO6126-28-87 02:46:00 Test Item Value Reference Range Interpretation Comments A/G Ratio (test code = A/G Ratio) 0.9 1 0.7-1.6 [facility]annCHEM PUWHU9238-46-97 02:46:00 Test Item Value Reference Range Interpretation Comments B/C Ratio (test code = B/C Ratio) 5 1 6-25 [facility]annCHEM UTAJV5938-85-19 02:46:0018.7[facility] HermannCHEM PANEL 2018-07-22 02:46:002[facility] HermannCHEM BBMAU9520-86-68 02:46:007.6[facility] HermannCHEM RCEHD9814-07-52 02:46:0024[facility] HermannCHEM WLSTU1224-20-10 02:46:0098[facility] HermannCHEM LZOPH5976-66-02 02:46:004.7[facility] HermannCHEM JWZSL1691-24-69 02:46:28580Kihqasim HermannCHEM KDBIG4907-84-94 02:46:002.8 [facility]annCHEM MRMTD7401-89-46 02:46:0013[facility] HermannCHEM PANEL 2018-07-22 02:46:009[facility] HermannCHEM OEDMS8948-56-02 02:46:0057[facility] HermannCHEM KYENZ7082-32-54 02:46:006.0[facility] HermannCHEM ICSWB5101-70-63 02:46:000.4[facility] HermannCHEM ZAOMU6891-67-83 02:46:0018.60[facility] CHEM FYUNN3702-34-24 02:46:0089[facility] HermannCHEM RIKPJ9972-13-75 02:46:0095 [facility] OgcifwwQAVXMLXXJA0149-45-58 02:46:0066.2[facility] HermannHEMATOLOGY 2018-07-22 02:46:0021.4[facility] VpqzoypZWGZMNTJWH8172-85-95 02:46:007.7[facility] ZmhaykiUSYFGHWVDE1653-11-48 02:46:000.9[facility] JrjjtawVEFDEJROCK2350-37-01 02:46:001.2[facility] PkwrtevKCSQLWFAXB3425 02:46:000.3[facility] YQXCLZMJIK1975-59-12 02:46:000.1[facility] LaenpuwWLHHNSMPOY5352-83-69 02:46:002.7 [facility] WcyjtbcMWDOGEEIDH4523-21-21 02:46:003.5[facility] HermannHEMATOLOGY 2018-07-22 02:46:00 Test Item Value Reference Range Interpretation Comments PT (test code = PT) 14.4 s 12.0-14.7 [facility] PmpfqncNWQJAQRRFV9770-25-89 02:46:00 Test Item Value Reference Range Interpretation Comments INR (test code = INR) 1.12 1 0.85-1.17 [facility] AhbthuvUVFFXDQRMS0088-94-55 02:46:00 Test Item Value Reference Range Interpretation Comments PTT (test code = PTT) 37.1 s 22.9-35.8 [facility] UqzhgstSFJNIASYSX3652-27-67 02:46:0014.8[facility] HermannHEMATOLOGY 2018-07-22 02:46:29278Jjkfgugc GjjqendESWTTZQKEU4896-02-88 02:46:007.6[facility] KawrlabJJJVMJNUXV2378-93-03 02:46:002.83[facility] SabbsjyARLRIMRCVK1695-88-11 02:46:004.1[facility] OtggaimVLTWGRZYCP2938-13-98 02:46:0035.2[facility] SAEBRQALPX1215-36-71 02:46:00 Test Item Value Reference Range Interpretation Comments MCH (test code = MCH) 28.8 pg 27.0-31.0 [facility] WruvzpnWNGXYIDKLO4150-90-60 02:46:008.1[facility] HermannHEMATOLOGY 2018-07-22 02:46:0081.9[facility] JdsbclsLBTPXKYIZT4937-21-45 02:46:0023.2[facility] HermannCHEM EPVSZ9624-74-01 22:52:0086[facility]annCHEM LTXMU5709-12-10 22:52:0097[facility]annCHEM MEBLA7701-55-50 22:52:005.2[facility] HermannCHEM QSERE1951-85-81 22:52:47050Pxnlkcai HermannCHEM PDEQE8606-80-43 22:52:0017.30 [facility]annCHEM MTZCR1369-22-08 22:52:0098[facility]annCHEM PANEL 2018-07-20 22:52:003[facility]annCHEM RYSHW2579-87-20 22:52:0070[facility]annCHEM VJYJQ0631-73-36 22:52:0010[facility]annCHEM JYZTQ1260-20-98 22:52:000.4[facility]annCHEM MBKAE2488-74-80 22:52:006.8[facility]annCHEM KXJVE7238-29-39 22:52:008.1[facility]annCHEM AQQGK8485-28-52 22:52:0024 [facility]annCHEM ZMKNQ7792-37-94 22:52:0019[facility]annCHEM PANEL 2018-07-20 22:52:003.3[facility]annCHEM RENEU6866-04-89 22:52:00 Test Item Value Reference Range Interpretation Comments A/G Ratio (test code = A/G Ratio) 0.9 1 0.7-1.6 [facility]annCHEM IAGEW4716-56-24 22:52:0019.2[facility]annCHEM PANEL 2018-07-20 22:52:003.5[facility]annCHEM TNPHZ0429-30-13 22:52:00 Test Item Value Reference Range Interpretation Comments B/C Ratio (test code = B/C Ratio) 5 1 6-25 [facility] IucfqlqAAODBQJWIH2159-88-83 22:52:67242Cgwlvrti HermannHEMATOLOGY 2018-07-20 22:52:006.8[facility] RjlgdgeABSNRNVOEU2847-72-91 22:52:0035.4[facility] TrpvkisOHAREOITAX3511-73-30 22:52:0015.1[facility] FhwrafmTOSGEIHAXX9259-82-37 22:52:0026.1[facility] JzhctmhQJYOTMJUOC9804-72-67 22:52:0081.4[facility] ETIVBDVXXO8441-61-73 22:52:00 Test Item Value Reference Range Interpretation Comments MCH (test code = MCH) 28.8 pg 27.0-31.0 [facility] ArcrhrvASYBVEJYAL4442-06-20 22:52:005.4[facility] HermannHEMATOLOGY 2018-07-20 22:52:003.20[facility] DczupnqTKZMNDUFGW8019-42-18 22:52:009.2[facility] RzmoxkjUFNOEJYCRH1418-48-98 22:52:0074.0[facility] NxdroecVYGKDERQHS0328-44-87 22:52:0015.5[facility] UpfcydcADRAOESZRG2124-09-61 22:52:006.7[facility] CYLEQNRGYA2863-54-71 22:52:002.8[facility] MmlyotkCFADRPEQRX9672-64-69 22:52:001.0 [facility] TvpqjpdXCFXRKEMAK9055-24-52 22:52:004.0[facility]annHEMATOLOGY 2018-07-20 22:52:000.1[facility] EdmhwsqKCTKSVTTUQ2878-08-31 22:52:000.2[facility] ZskaruaLILWAQQNUI3702-17-90 22:52:000.8[facility] BbxiinhWZRPACBRPZ8598-84-55 22:52:000.4[facility]annURINE AND CLJYY9427-47-97 15:20:00Small *ABN*(05/23/18 10:20 AM)[facility] IQGHL5054-00-52 15:20:00<1[facility] URINE AND PETGA5942-79-28 15:20:009[facility]UR[facility] AND PIENO4572-94-45 15:20:00Negative (05/23/18 10:20 AM)[facility] AND JCFQY2212-07-47 15:20:00Trace *ABN*(05/23/18 10:20 AM)[facility] EIWNE6101-79-87 15:20:00Negative *NA*(05/23/18 10:20 AM)[facility] VQZYO4219-16-63 15:20:00 Test Item Value Reference Range Interpretation Comments UA pH (test code = UA pH) 6.5 1 5.0-8.0 [facility] GRSUI3551-30-90 15:20:00 Test Item Value Reference Range Interpretation Comments UA Spec Grav (test code = UA Spec 1.008 1 Grav) [facility] AMHTT1372-81-25 15:20:00Slight *ABN*(05/23/18 10:20 AM) [facility] LSXJN4338-07-55 15:20:00Yellow *NA*(05/23/18 10:20 AM) [facility] XXVS4192-33-08 15:20:178186.0[facility] CHEM 2018-05-23 15:20:00 Test Item Value Reference Range Interpretation Comments U Prot/Creat (test code = U 6.61 1 Prot/Creat) [facility] DESD3569-12-73 15:20:0055.00[facility] CHEM 2018-05-23 15:20:17512.8[facility] HermannANEMIA YJOMX7569-11-84 14:55:0035 [facility]annANEMIA BJZZV3155-80-73 14:55:64311Gvcvsrxg HermannANEMIA STUDY 2018-05-23 14:55:18898Ztpoqbrh HermannANEMIA OJRZY4833-48-14 14:55:0097[facility] HermannANEMIA MBUTU0309-87-64 14:55:17273Lbkwtphh HermannCHEM DCIFC0716-90-87 14:55:008.0[facility]annCHEM EKQJS6649-97-49 14:55:002.5[facility]annCHEM HMPNF4821-62-26 14:55:0026.3[facility] HermannCHEM XNOKM3588-81-93 14:55:003.5 [facility]annCHEM RALBY2556-86-54 14:55:007[facility]annCHEM PANEL 2018-05-23 14:55:0080[facility]annCHEM KVBBT6462-05-32 14:55:000.4[facility]annCHEM PDSPK8565-16-99 14:55:004.3[facility]annCHEM ZCZRV0399-76-68 14:55:0022[facility]annCHEM CSKJW0809-87-55 14:55:008.8[facility]annCHEM WIPVC3739-34-40 14:55:008.1[facility]annCHEM RYKGJ2765-65-35 14:55:0012 [facility]annCHEM DCFEM8615-61-29 14:55:0026[facility] HermannCHEM PANEL 2018-05-23 14:55:0097[facility]annCHEM TXJRT5988-28-05 14:55:003.8[facility] HermannCHEM DAGCM2955-46-63 14:55:008.22[facility]annCHEM HODVT0331-76-14 14:55:03219Bolzwhys HermannCHEM LSDHW1791-03-50 14:55:0059[facility]annCHEM EACHX4952-80-87 14:55:0098[facility]annCHEM GNYRX3110-58-67 14:55:003.8 [facility]annCHEM GEGZQ8666-84-02 14:55:00 Test Item Value Reference Range Interpretation Comments A/G Ratio (test code = A/G Ratio) 1.1 1 0.7-1.6 [facility]annCHE[facility] RPJII4265-86-75 14:55:0016.8[facility] HermannCHEM PANEL 2018-05-23 14:55:00 Test Item Value Reference Range Interpretation Comments B/C Ratio (test code = B/C Ratio) 7 1 6-25 [facility]annDR[facility] XLSXJR7716-26-15 14:55:00Negative (05/23/18 9:55 AM)[facility]annDR[facility] KHPXUO3913-79-39 14:55:00Negative (05/23/18 9:55 AM)[facility] VKDFLO1892-68-91 14:55:00Positive *ABN*(05/23/18 9:55 AM)[facility] JOSEXZ3826-33-51 14:55:00Negative (05/23/18 9:55 AM)[facility]annDR[facility] YZXRES2364-02-42 14:55:00Negative (05/23/18 9:55 AM)[facility]annDR[facility] SCREEN 2018-05-23 14:55:00See Note (05/23/18 9:55 AM)[facility]DR[facility] SCREEN 2018-05-23 14:55:00Negative (05/23/18 9:55 AM)[facility]annDR[facility] SCREEN 2018-05-23 14:55:00Negative (05/23/18 9:55 AM)[facility]annDR[facility] SCREEN 2018-05-23 14:55:00Negative (05/23/18 9:55 AM)[facility]annDR[facility] SCREEN 2018-05-23 14:55:00Positive *ABN*(05/23/18 9:55 AM)[facility]annDR[facility] SCREEN 2018-05-23 14:55:00See Note 2(05/23/18 9:55 AM)[facility]annDR[facility] SCREEN 2018-05-23 14:55:00See Note 1(05/23/18 9:55 AM)[facility]annHEMATOLOGY 2018-05-23 14:55:000.3[facility] NevzggfQIJMTMSEEU0398-21-49 14:55:000.1[facility] ZkderljTEJYRNJXKI0527-66-71 14:55:003.9[facility] KtpylufURDWMKJRPN5802-83-08 14:55:001.3[facility] HfabzntQZKUMNVLMF3507-17-56 14:55:000.5[facility] ENZEDIUUFJ6177-69-10 14:55:000.9[facility] KrjtslwOKVDHUFUDR4434-99-50 14:55:007.7 [facility] BmmbnnzEQLSBDGNDS6713-03-31 14:55:004.3[facility]annHEMATOLOGY 2018-[facility]-23 14:55:0022.0[facility] CnloxdtZRWMDKXBHQ4786-21-63 14:55:0065.1[facility] NtlpilzIBZFXOALAZ1182-47-11 14:55:00 Test Item Value Reference Range Interpretation Comments INR (test code = INR) 1.06 1 0.85-1.17 [facility]KDYRMPQLI3161-17-57 14:55:00 Test Item Value Reference Range Interpretation Comments PT (test code = PT) 13.8 s 12.0-14.7 [facility] VlgrerbFHEBLQGWUK1219-51-73 14:55:00 Test Item Value Reference Range Interpretation Comments PTT (test code = PTT) 35.0 s 22.9-35.8 [facility] XrjnyrwWTHBQUZKPB7190-49-80 14:55:0018.1[facility]annHEMATOLOGY 2018-05-23 14:55:008.0[facility] TrfukwcJTBUVYGNJF8763-75-00 14:55:15367Yljjezaa JiysjhtTEGNMYALTS6282-45-93 14:55:0033.3[facility] KazluyhNCBZSMVNBD0503-50-60 14:55:004.54[facility] KolatiyXTTOQADZHN8448-83-28 14:55:006.1[facility] UVOKPNKJMQ3150-03-82 14:55:0080.9[facility] IxoszoxUYGTNUZQFA6006-07-13 14:55:00 36.7[facility] KocduojTGLOWISBHG8758-01-85 14:55:00 Test Item Value Reference Range Interpretation Comments MCH (test code = MCH) 27.0 pg 27.0-31.0 [facility] LagjpekHYWZVVHNSX9425-73-68 14:55:0012.2[facility] HermannIMMUNOLOGY 2018-05-23 14:55:00>8.0[facility] NbfiutoUYDWGFPCXP8294-02-03 14:55:00<0.91 [facility] OwlqhtkNOAZBSUDSG5979-12-67 14:55:00Non-Reactive *NA*(05/23/18 9:55 AM) [facility] NbdtqylAGNJNJJUBI4945-81-58 14:55:00Negative (05/23/18 9:55 AM)[facility] XfwwyhpFGIGILBWFS3885-43-97 14:55:0018.2[facility] SansawdPCVRMUVWEH0212-32-50 14:55:007.8[facility] MtefhkyOIBOFUOUCY1432-34-33 14:55:009.5[facility] IWLBMLRSED1031-86-61 14:55:0060.9[facility] InifveeJWUSTCYZTE0067-96-29 14:55:00 3.6[facility] MkyavknTTJCAJNREV2277-53-65 14:55:001.47[facility] HermannIMMUNOLOGY 2018-05-23 14:55:008.1[facility] ZqecbmaXHRQFNCAEZ8500-90-76 14:55:000.77[facility] HylqhdiTBCOGMCSIN0478-27-02 14:55:004.93[facility] BigquxqBRPWQRTHAV8120-55-03 14:55:000.29[facility] JxfylzzHQCCWXNTYL0639-91-90 14:55:000.63[facility] GPZEZCWAQW8313-54-57 14:55:002.18[facility] MtpdyieRRZAKCTXSQ6634-87-86 14:55:00 89.85[facility] DvpyqwrRIRIGHQTDH0347-48-13 14:55:87029.11[facility] FFGENFTLUH7972-63-85 14:55:00>8.0[facility] CxaaogcRUQDRXCOPR2984-67-73 14:55:00<0.2[facility] AdlpwuiDOYFGWGDQA4850-00-66 14:55:000.2[facility] ANOPXVRYHB2005-98-56 14:55:00Reactive *ABN*(05/23/18 9:55 AM)[facility] DFTUKSGCXL9427-31-00 14:55:00>8.0[facility] RluvnuwTSXSZUGGQH0274-20-36 14:55:004.5[facility] RbfedrrVFWQUOPWSP0859-49-66 14:55:00Negative *NA*(05/23/18 9:55 AM)[facility] WeceyatUWQAIKTAIZ1960 14:55:00<0.2[facility] NNHQJIYGHJ1222-14-67 14:55:00Negative *NA*(05/23/18 9:55 AM)[facility] RUCJUXIRMA7202-94-62 14:55:00Negative *NA*(05/23/18 9:55 AM)[facility] ZTBNLYQHXD7613-79-38 14:55:00Negative *NA*(05/23/18 9:55 AM)[facility] FOULLF5647-68-93 14:55:00 Test Item Value Reference Range Interpretation Comments VLDL (test code = VLDL) 30 1 [facility] FttwmqeLPFQWW6589-01-84 14:55:0074[facility] FtzbzrpMBQUED2851-91-41 14:55:79132Ctifedie JskeortSRIMLR1092-61-38 14:55:0072[facility] HermannLIPIDS 2018-05-23 14:55:91895Sapdtuim LphjzpdCYFAGU9360-14-88 14:55:00 Test Item Value Reference Range Interpretation Comments CHD Risk (test code = CHD Risk) 2.44 1 4.00-7.30 [facility]annPARATHYROID IAJHHSB9856-52-06 14:55:18775.0[facility] SPECIAL ZUZWJJZDW0131-53-17 14:55:000.46[facility] HermannSPECIAL CHEMISTRY 2018-05-23 14:55:004.9[facility] HermannCARDIAC TCVWWSC8808-69-49 12:03:000.04 [facility]annCARD[facility]AC BOZOPIF3714-79-95 12:03:0026[facility]annCARDIAC HDUZVUQ9034-30-01 07:54:000.02[facility]annCARDIAC JIGTVKL7750-37-79 07:54:00 31[facility]annCHEM JGVGT7566-44-67 07:54:001.9[facility]annCHEM PANEL 2018-04-15 07:54:00 Test Item Value Reference Range Interpretation Comments B/C Ratio (test code = B/C Ratio) 6 1 6-25 [facility]annCHEM IDVHR8762-52-60 07:54:003.3[facility]annCHEM PANEL 2018-04-15 07:54:00 Test Item Value Reference Range Interpretation Comments A/G Ratio (test code = A/G Ratio) 0.9 1 0.7-1.6 [facility]annCHEM DWVNX5017-85-70 07:54:007.1[facility]annCHEM PANEL 2018-04-15 07:54:003.8[facility]annCHEM AVUWS3805-03-40 07:54:0018[facility]annCHEM ZSSAQ0789-73-04 07:54:0014[facility]annCHEM KRBDR0968-61-41 07:54:0082[facility]annCHEM XUOXY1814-88-28 07:54:000.5[facility]annCHEM QSPLR5530-29-06 07:54:0010[facility]annCHEM DVECT9335-95-26 07:54:003.2 [facility]annCHEM QJIHE2558-09-92 07:54:44959Mpplifeu HermannCHEM PANEL 2018-04-15 07:54:0095[facility] HermannCHEM NYDLC3622-04-49 07:54:0034[facility]annCHEM XTHUV1046-92-58 07:54:005.83[facility]annCHEM QGRGB9737-80-65 07:54:65834Kvohnktk HermannCHEM MVUZD3495-20-49 07:54:0023[facility]annCHEM RCGGZ2093-61-43 07:54:0015.2[facility] HermannCHEM SDIDX5373-42-82 07:54:008.5 [facility]annCHEM DMXOR7298-57-22 07:54:004.2[facility] HermannHEMATOLOGY 2018-04-15 07:54:001.5[facility] QctrifzJWXMMDLJCM4183-04-87 07:54:000.5[facility] XvkqphiXKCORUKFHG2657-28-60 07:54:001.0[facility] OzvdjdnCUMRIAMPUV8643-50-00 07:54:003.5[facility] OnemlkkHJEFNGECOC1406-02-17 07:54:000.1[facility] QWGXCGQEYE4571-13-55 07:54:000.2[facility] ZshbilcKIKUPFQKKE8186-92-37 07:54:00 26.7[facility] XcvzdfsHWRESFXFBC7658-70-78 07:54:0061.0[facility]annHEMATOLOGY 2018-04-15 07:54:008.0[facility] DoeerigDPQXQFLCUB1398-29-34 07:54:003.3[facility] HjxkgucYZWLSNJRML2269-31-06 07:54:005.7[facility] PxoennpBGWDFOUXBT1867-30-26 07:54:004.48[facility] WvpvxdvNVKVVKBBQG0020-31-58 07:54:0017.7[facility] SHZRGMZOVX0060-06-58 07:54:90509Ilaawbbi IbhhhsyZQIINBVGFX6198-20-75 07:54:007.2 [facility] EhkhrmhRRBNNWHGDX5176-28-56 07:54:0011.6[facility] HermannHEMATOLOGY 2018-04-15 07:54:0035.5[facility] WcpggthQYJOIEFINK5119-54-54 07:54:0032.6[facility] BzvwkspWGTPLYVGNH3526-93-49 07:54:0079.2[facility] SdoyxysRCFFKZDULN0028-73-32 07:54:00 Test Item Value Reference Range Interpretation Comments MCH (test code = MCH) 25.8 pg 27.0-31.0 [facility]annCARDIAC EXIQXJN9265-45-46 02:58:00<0.02[facility] CARDIAC JYCRTUJ7671-60-00 00:12:9679767Zbsqffel HermannCARDIAC JVMTSOK9840-60-09 00:12:0037[facility]annCARDIAC HJQCOMO6308-03-70 00:12:001.0[facility] CARDIAC AQRPWXC2237-04-92 00:12:00 Test Item Value Reference Range Interpretation Comments CK MB Index (test 2.7 1 See_Comment [Automate d message] The code = CK MB Index) system w [facility] generated this result transmit emerson reference range : <=2.5. The reference range was not used to interpr et this result as erinn l/abnormal. [facility]annCHEM RIOTV1725-63-70 00:12:0012[facility]annCHEM PANEL 2018-04-15 00:12:0088[facility]annCHEM UYFOV1204-07-15 00:12:0014[facility]annCHEM GDDGR7762-54-89 00:12:007.4[facility]annCHEM AFBSK7853-53-16 00:12:000.5[facility]annCHEM WHGEF7286-38-89 00:12:0017[facility]annCHEM MGYJG2257-06-26 00:12:003.2[facility] HermannCHEM WODPN0639-42-89 00:12:008.1 [facility]annCHEM IZMHC0866-61-10 00:12:28902Pffajcom HermannCHEM PANEL 2018-04-15 00:12:0026[facility] HermannCHEM VITHO1809-74-94 00:12:004.94[facility]annCHEM YHQGK9329-61-48 00:12:0024[facility]annCHEM XGZTC5217-44-45 00:12:89843Huqzcrsj HermannCHEM UCGEA7897-68-51 00:12:00 Test Item Value Reference Range Interpretation Comments B/C Ratio (test code = B/C Ratio) 5 1 6-25 [facility]annCHEM PQAZZ3800-62-83 00:12:0012.3[facility] HermannCHEM PANEL 2018-04-15 00:12:00 Test Item Value Reference Range Interpretation Comments A/G Ratio (test code = A/G Ratio) 0.8 1 0.7-1.6 [facility]annCHEM VERAB1359-64-53 00:12:004.2[facility] HermannCHEM PANEL 2018-04-15 00:12:48893Tigopqyd HermannCHEM AIRUD5465-48-00 00:12:003.3[facility] CrlzftsLELXPHEALG9111-02-65 00:12:005.0[facility] XstppsnJRXPKCLHNR8293-89-00 00:12:0017.6[facility] BvhjnlbTLASKFUKDB2914-10-21 00:12:0033.5[facility] MJTOAAAUED9457-22-25 00:12:007.3[facility] WdyaaogHVBKKORUXT8718-99-06 00:12:00 4.25[facility] QtdynjeMVSURAOOPS5406-46-91 00:12:00 Test Item Value Reference Range Interpretation Comments MCH (test code = MCH) 26.0 pg 27.0-31.0 [facility] HpefibqFAMRRLSXNW4816-80-85 00:12:0077.5[facility] HermannHEMATOLOGY 2018-04-15 00:12:0033.0[facility] ErvcikoVSFVUBBNET6329-01-85 00:12:0011.1[facility] LzhkabaUWJZZCUJTB4855-50-36 00:12:75776Bsgrioyq YqqmkvwTLLHCREXFI0534-73-00 00:12:003.6[facility] CucztbgPQGDYIQJHY6780-63-69 00:12:000.9[facility] UWAHHPCALG6143-57-64 00:12:000.1[facility] MmnecppRJDSPYEVAE7100-33-00 00:12:000.1 [facility] QioluhlPEWUYUBREB3471-03-16 00:12:000.4[facility]annHEMATOLOGY 2018-04-15 00:12:001.0[facility] SulaidhHYSYBZMPGB3796-77-42 00:12:002.0[facility] EhthrcnIGORWLJCXN8572-57-68 00:12:001+ *ABN*(04/14/18 7:12 PM)[facility] EIHKCFSQAP1393-18-68 00:12:00Normal (04/14/18 7:12 PM)[facility]annHEMATOLOGY 2018-04-15 00:12:0017.2[facility] JqwxgagFZFWUWHNXO6105-29-60 00:12:0072.3[facility] XinjfzzSFBHIQBASQ7226-58-78 00:12:007.5[facility] KexrfejQWSYNFESRY7242-82-23 12:10:0017.4[facility] HermannCHEM VMTRR2816-31-86 08:01:002.1[facility] HermannCHEM EWNOY2876-55-89 08:01:005.6[facility] OyjaboeKORSQZQEWPDC8663-25-68 08:01:0017.3 [facility] SzixxkeSZJTDOVLWZUK5748-51-46 08:01:005[facility] HermannELECTROLYTES 2018-03-19 08:01:0094[facility] VakmnpmRZRAPZMFLXHQ6891-16-14 08:01:0024[facility] LcaptodVRGDUHCEPNEI3616-21-19 08:01:008.3[facility] SjidlgrVDAIOVJGJVFK4731-29-32 08:01:97407Ejaakwtk ZiwvktvKIMTMDMSVOSM9851-38-54 08:01:004.3[facility] EJJGEGTTHWBS7488-02-50 08:01:29895Kgvpcgnf OxbnjreLGSAHGQOIVIV7249-88-30 08:01:0055[facility] FerubdhJJOJITDVGJRK7012-31-02 08:01:009.62[facility] OKCUKUNZQY7153-12-78 08:01:000.3[facility] CdrftrgKLFGNLMIPV7543-06-49 08:01:00 10.9[facility] FdiyfoqCBMBXCGLNS2529-07-38 08:01:0078.7[facility] HermannHEMATOLOGY 2018-03-19 08:01:008.8[facility] KqsekpoYOYKDRGXJF6442-58-17 08:01:000.1[facility] IkcgukdPWUUAVRGXU9461-28-73 08:01:000.9[facility] NxpkjmcAOEGIHGOBB8708-17-09 08:01:001.3[facility] VovawsaBFTOWOBNLO2110-79-72 08:01:001+ *ABN*(03/19/18 3:01 AM)[facility] FqeasdgGPAQLYHKSI6748-94-88 08:01:006.5[facility]annHEMATOLOGY 2018-03-19 08:01:000.7[facility] AwwjqqoRIAXTXJTKF2947-14-38 08:01:007.9[facility] YdjvwpvHPKWZMAPNO8835-85-78 08:01:92567Ehbgmjgs LjqnwppEYRQBLWYQN1006-60-73 08:01:00 Test Item Value Reference Range Interpretation Comments MCH (test code = MCH) 26.4 pg 27.0-31.0 [facility] YaqtglkPDXNRJEQQU0889-94-09 08:01:0015.4[facility]annHEMATOLOGY 2018-03-19 08:01:0034.2[facility] WbgiingCJDKODEHXG3374-81-24 08:01:002.99[facility] RunubapWEPAOVLIOB0097-91-72 08:01:008.2[facility] ShwftigGRXQEZLNUM0280-44-34 08:01:0023.1[facility] XqwyrrfXZNCRSDFIB8898-42-55 08:01:007.9[facility] XCTUETEQFQ4374-26-65 08:01:0077.1[facility] HermannCHEM OPFDO2688-15-06 08:29:00 2.3[facility] HermannCHEM YGFRR8097-42-85 08:29:006[facility] HermannCHEM PANEL 2018-03-18 08:29:000.4[facility] HermannCHEM HDKFE0446-85-08 08:29:004.0[facility] HermannCHEM EJAJF4184-13-86 08:29:90774Nlttafjx HermannCHEM FHFHV9172-29-62 08:29:0050[facility]annCHEM PGHBU3538-20-26 08:29:14177Imimsguc HermannCHEM APISC9841-20-23 08:29:008.40[facility] HermannCHEM DOAFS6896-09-05 08:29:0097 [facility]annCHEM QHUXD9161-46-98 08:29:63631Asvnfzro HermannCHEM PANEL 2018-03-18 08:29:002.7[facility] HermannCHEM VEADX6392-03-91 08:29:006.9[facility]annCHEM ESBGH4047-45-79 08:29:008.0[facility]annCHEM EYGZJ6297-88-52 08:29:0026[facility]annCHEM LAEJP4897-02-13 08:29:009[facility]annCHEM DCZRX4607-34-13 08:29:0012[facility]annCHEM YEUIU6560-62-34 08:29:00 Test Item Value Reference Range Interpretation Comments B/C Ratio (test code = B/C Ratio) 6 1 6-25 [facility]annCHEM JODEY6043-45-29 08:29:0014.0[facility]annCHEM PANEL 2018-03-18 08:29:004.2[facility]annCHEM PTSID7904-39-28 08:29:00 Test Item Value Reference Range Interpretation Comments A/G Ratio (test code = A/G Ratio) 0.6 1 0.7-1.6 [facility]annCHEM SKGAG4765-61-30 08:29:005.7[facility]annHEMATOLOGY 2018-03-18 08:29:00 Test Item Value Reference Range Interpretation Comments INR (test code = INR) 1.23 1 0.85-1.17 [facility] AxiukivUYZCAMTCSC1039-37-99 08:29:00 Test Item Value Reference Range Interpretation Comments PTT (test code = PTT) 42.0 s 22.9-35.8 [facility] OdmltzwXDSHVJXMDB2858-77-53 08:29:00 Test Item Value Reference Range Interpretation Comments PT (test code = PT) 15.6 s 12.0-14.7 [facility] EupspvlGHGIVGRBPB4793-95-02 08:29:001+ *ABN*(03/18/18 3:29 AM)[facility] EmafzpcTFUCERJERE4469-46-49 08:29:001.0[facility] DyyobtaMLFNNZRVXD1137-00-87 08:29:000.1[facility] OyobyooIRQIAOANLP3126-47-39 08:29:000.9[facility] FOZYOWWNJZ9249-09-66 08:29:005.0[facility] IhqksulYAZMLWUUHW0122-66-29 08:29:001.6 [facility] LmnmrotBVGVLDUFWD2726-31-34 08:29:0013.3[facility]annHEMATOLOGY 2018-03-18 08:29:000.5[facility] PzvjrzqANHTFMDSOE2647-49-60 08:29:0013.9[facility] WrhuqvaHSSNTIGZHC9245-84-25 08:29:0070.7[facility] CdptolfFYXELETZWU6487-76-26 08:29:80407Gqsdcjqm BzmzxlyGBCSXNUOTV7365-81-04 08:29:007.9[facility] UKQREWXBVC7038-45-03 08:29:0033.8[facility] WmzfmlvKBULAQAHTL5742-84-87 08:29:00 15.0[facility] ZfchgmpDLJDGQQDHO6818-26-41 08:29:0021.8[facility]annHEMATOLOGY 2018-03-18 08:29:0077.9[facility] FrgdnmwFQCXCJEMUZ5669-25-90 08:29:00 Test Item Value Reference Range Interpretation Comments MCH (test code = MCH) 26.3 pg 27.0-31.0 [facility] KrbhvnpTYRCQENQAW8925-68-07 08:29:002.80[facility]annHEMATOLOGY 2018-03-18 08:29:007.4[facility] YzgpkiyVGAQOBUHID9952-24-79 08:29:007.1[facility] HkerakbIXWDFDXTTU5499-56-89 21:57:0018.3[facility] HermannCHEM CKJIF0596-48-69 13:00:000.3[facility] NulstacXUKKEAMKZJ0080-82-00 13:00:00Negative *NA*(03/17/18 8:00 AM)[facility]annCHEM HMKZD0784-64-01 11:05:000.3[facility] HermannCARDIAC HPPEEKQ5952-51-09 08:09:00 Test Item Value Reference Range Interpretation Comments CK MB Index (test 1.2 1 See_Comment [Automate d message] The code = CK MB Index) system w [facility] generated this result transmit emerson reference range : <=2.5. The reference range was not used to interpr et this result as erinn l/abnormal. [facility]annCARDIAC NVQTJHR6554-71-29 08:09:73321Uysdcvxm HermannCARDIAC IEESQKS0365-45-65 08:09:3957021Ijatwwfy HermannCARDIAC RZETHQG3374-44-27 08:09:001.5[facility]annCARDIAC IJJYQOH7366-87-25 08:09:00<0.02[facility]annCHEM KTVMR0068-95-62 08:09:0033.0[facility]annCHEM YOQPU2425-94-99 08:09:004[facility]annCHEM KTAGT4306-93-23 08:09:0089[facility]annCHEM HZZDM0742-72-36 08:09:0093[facility]annCHEM PWOBS9984-08-53 08:09:004.1 [facility]annCHEM SDQWF0037-91-09 08:09:00 Test Item Value Reference Range Interpretation Comments A/G Ratio (test code = A/G Ratio) 0.7 1 0.7-1.6 [facility]annCHEM ESBEQ2070-08-82 08:09:00 Test Item Value Reference Range Interpretation Comments B/C Ratio (test code = B/C Ratio) 7 1 6-25 [facility]annCHEM XROXT5701-15-94 08:09:0020.4[facility]annCHEM PANEL 2018-03-17 08:09:000.4[facility] HermannCHEM XDLZL9686-37-53 08:09:0011[facility]annCHEM WEVGO3190-97-25 08:09:0010[facility]annCHEM QFYEJ7765-35-08 08:09:002.7[facility]annCHEM RIXDM5811-14-44 08:09:0021[facility]annCHEM WHNTT0514-52-46 08:09:006.8[facility] HermannCHEM ODIPS1544-71-63 08:09:007.5 [facility]annCHEM YYMCW3228-67-36 08:09:19917Mqoytbjd HermannCHEM PANEL 2018-03-17 08:09:004.4[facility] HermannCHEM OTUTI1069-29-43 08:09:0012.50[facility]annCHEM DXPOY2398-44-64 08:09:0085[facility]annCHEM YAKAO9675-64-22 08:09:21626Mvoqbozj HermannCHEM URTRR0391-51-43 08:09:001.9[facility]annCHEM LBUFC7598-76-64 08:09:0065[facility]annCHEM FDLGJ2706-73-35 08:09:007.5 [facility] KewposaWEPXESVMQM2555-56-25 08:09:000.8[facility] HermannHEMATOLOGY 2018-03-17 08:09:000.5[facility] JltnbfoNSADJYBCDV9166-98-37 08:09:000.7[facility] SqdcjwzUPGQJJRTEG6333-23-88 08:09:000.5[facility] JomryztVNABONVQFD5345-25-49 08:09:007.4[facility] KvurektSHGOSPDBFT0913-79-30 08:09:001+ *ABN*(03/17/18 3:09 AM) [facility] YzfaoydEEYOEDWHDP3649-12-82 08:09:007.7[facility] HermannHEMATOLOGY 2018-03-17 08:09:009.3[facility] YwfhtpgUKONCBRZKJ5316-45-29 08:09:0082.0[facility] JbkkxppTUAEDQNWAS5521-62-39 08:09:00 Test Item Value Reference Range Interpretation Comments INR (test code = INR) 1.26 1 0.85-1.17 [facility] FxgcunsZIUJQTDIOO5458-86-26 08:09:00 Test Item Value Reference Range Interpretation Comments PT (test code = PT) 15.9 s 12.0-14.7 [facility] GqeivebXHSWBYUTRN0897-15-54 08:09:00 Test Item Value Reference Range Interpretation Comments MCH (test code = MCH) 26.4 pg 27.0-31.0 [facility] KllyibqTLAPZECGBA9068-82-81 08:09:0077.8[facility] HermannHEMATOLOGY 2018-03-17 08:09:0022.2[facility] EafobopKDRWJJDAON4622-38-70 08:09:007.5[facility] WwxqqfnCGQAVZJTDU0680-12-16 08:09:009.0[facility] DrzuxwpBTPIVKUMVI7754-87-41 08:09:002.86[facility] UuclactZGPWHRNMRX2612-89-93 08:09:007.4[facility] KFCLKAXYCY3698-77-41 08:09:56719Wmehcfkt KsbjwbhSWMWFBEPXB8818-93-25 08:09:00 15.1[facility] YozyonrZXMTEWEKLX4632-71-42 08:09:0034.0[facility] HermannCARDIAC WKMBIVK0030-81-08 00:37:00 Test Item Value Reference Range Interpretation Comments CK MB Index (test 1.7 1 See_Comment [Automate d message] The code = CK MB Index) system w [facility] generated this result transmit emerson reference range : <=2.5. The reference range was not used to interpr et this result as erinn l/abnormal. [facility]annCARDIAC FCPPLTO4517-92-28 00:37:002.9[facility]annCARDIAC HMBIFHU1970-46-78 00:37:00<0.02[facility] HermannCARDIAC WHJCHUM5546-25-90 00:37:22986Lpglofvd HermannCARDIAC WPVKHPU8932-19-53 00:37:332596Zswkspvx HermannCHEM FIDQO0423-39-39 00:37:001.9[facility] HermannCHEM LPRCJ9806-49-51 00:37:009.1[facility] HermannCHEM YHTQP2448-24-17 00:37:005[facility] HermannCHEM OBAHR6024-63-37 00:37:22575Xagnvdlr HermannCHEM BCFKD2716-33-47 00:37:0023 [facility]annCHEM XANYH9001-85-54 00:37:0024[facility] HermannCHEM PANEL 2018-01-23 00:37:00 Test Item Value Reference Range Interpretation Comments A/G Ratio (test code = A/G Ratio) 0.8 1 0.7-1.6 [facility]annCHEM QANOH1730-72-39 00:37:004.0[facility]annCHEM PANEL 2018-01-23 00:37:000.4[facility] HermannCHEM NECCM8353-56-22 00:37:004.4[facility]annCHEM TTDJM4973-83-78 00:37:006.7[facility] HermannCHEM EYYIK9151-67-29 00:37:21941Mrofzkqz HermannCHEM DCRNW3448-27-61 00:37:0011.00[facility] CHEM EENEC0610-37-79 00:37:0017.4[facility] HermannCHEM SFMGD6408-85-01 00:37:0025 [facility]annCHEM DMMEH1597-39-21 00:37:0092[facility] HermannCHEM PANEL 2018-01-23 00:37:003.4[facility] HermannCHEM CJVJS2558-34-90 00:37:007.4[facility]annCHEM XYDTR9211-13-39 00:37:00 Test Item Value Reference Range Interpretation Comments B/C Ratio (test code = B/C Ratio) 8 1 6-25 [facility] WSEMT7212-90-16 00:37:0084[facility]annCHEM PANEL 2018-01-23 00:37:67258Scyeertj TdpdxmyNYGKWGJMGE9133-04-92 00:37:0021.5[facility] EwktbrsZAIDVGXWFW7812-87-57 00:37:001.6[facility] CvpqbprJVNSPLYZYR3370-13-13 00:37:000.3[facility] GzqksojYBSHLIKVBY2914-42-17 00:37:0063.7[facility] GGMTDUUSYX5254-08-65 00:37:004.8[facility] AtrzipfXWLRBHLOCN2944-23-69 00:37:003.5 [facility] AztxvckZRXQVVEQYD5018-40-64 00:37:0010.4[facility] HermannHEMATOLOGY 2018-01-23 00:37:000.9[facility] GqpqgncPOUIKSETLP5478-36-53 00:37:000.1[facility] YgxfimrLKGDFSURXZ0397-00-39 00:37:000.8[facility] HyxlzhmRLBGXGCPWU5746-70-52 00:37:00 Test Item Value Reference Range Interpretation Comments INR (test code = INR) 1.06 1 0.85-1.17 [facility] KlopctqEBWVIWOEVB3044-39-83 00:37:00 Test Item Value Reference Range Interpretation Comments PT (test code = PT) 13.8 s 12.0-14.7 [facility] UinllkbIZXRRWKVLA4090-81-17 00:37:00 Test Item Value Reference Range Interpretation Comments PTT (test code = PTT) 35.7 s 22.9-35.8 [facility] YzisvgsZZGKYOUGSM1705-46-77 00:37:54533Idofdnbl HermannHEMATOLOGY 2018-01-23 00:37:007.5[facility] EmxvtcyLJZPRJPJXG1727-81-13 00:37:0025.4[facility] DncsinaDPJMQWYBJL7941-49-45 00:37:0080.3[facility] KlepqrdEWSDOZSTXA4975-34-67 00:37:00 Test Item Value Reference Range Interpretation Comments MCH (test code = MCH) 28.2 pg 27.0-31.0 [facility] WeoutbrRRSJGXFFRL7393-61-19 00:37:008.9[facility]annHEMATOLOGY 2018-01-23 00:37:0035.1[facility] JalcmjaKNWJJYLMRX0970-26-63 00:37:0013.9[facility] FchrqyrEVZRYMVKYW4637-62-12 00:37:007.6[facility] WejunsxPGMZIHZSLX8213-55-57 00:37:003.16[facility]annURINE AND CUOPU7825-53-18 00:37:0050[facility]INE AND OKGFN0191-55-89 00:37:008[facility] AND MVMQV7203-17-19 00:37:00Small *ABN*(01/22/18 7:37 PM)[facility] QJYKY9170-45-70 00:37:00 Test Item Value Reference Range Interpretation Comments UA pH (test code = UA pH) 6.0 1 5.0-8.0 [facility] USHMU3321-60-37 00:37:00Clear (01/22/18 7:37 PM) [facility] DVIKM0219-84-52 00:37:00 Test Item Value Reference Range Interpretation Comments UA Spec Grav (test code = UA Spec 1.005 1 Grav) [facility] MZBJC0470-20-77 00:37:00Negative (01/22/18 7:37 PM) [facility] LVWBK4222-05-70 00:37:00Small *ABN*(01/22/18 7:37 PM) [facility] INZQX4925-78-00 00:37:00Negative *NA*(01/22/18 7:37 PM) [facility]annCHEM HUZKZ8209-47-42 10:09:001.8[facility]annCHEM PANEL 2017-12-20 10:09:004[facility]annCHEM XLUQW9989-69-39 10:09:0011.60[facility]annCHEM MLCGZ4925-65-61 10:09:006.9[facility]annCHEM PEVUQ6795-48-92 10:09:0027[facility]annCHEM EPZQY7630-38-65 10:09:18404Dkxfeayi HermannCHEM BMYPQ4521-20-86 10:09:0094[facility]annCHEM RVVSV5252-74-73 10:09:003.7 [facility]annCHE[facility] GSIYT8678-10-43 10:09:00581Ryffktas HermannCHEM PANEL 2017-12-20 10:09:0085[facility]annCHEM VQFOL1844-88-54 10:09:0015.7[facility] YlnmdaaDBVEUYFZQI5606-69-01 10:09:000.2[facility] UtierceRJWOVIKPHQ0071-32-02 10:09:000.6[facility] SrfjpgiQBTFYVCMPX5840-26-10 10:09:001+ *ABN*(12/20/17 5:09 AM)[facility] VplilxqOZWSVIWBZY2993-38-03 10:09:0071.0[facility] HermannHEMATOLOGY 2017-12-20 10:09:001.0[facility] XgqhxzkJFXEEVENOM1533-55-82 10:09:000.8[facility] ZdsdvwwTZPXXXOBVW9971-48-25 10:09:004.6[facility] LbmjdgeSYYCRIFUPN0769-09-22 10:09:0015.7[facility] PthsoeyPDJJWLXDFO7057-68-45 10:09:003.1[facility] EYXYPBEQCC4165-41-22 10:09:009.4[facility] JifsxrrJLUZIHXFSE6923-55-49 10:09:94361 [facility] EuwlbpeALLGYMNHCI6389-49-82 10:09:0077.5[facility] HermannHEMATOLOGY 2017-12-20 10:09:0035.5[facility] UfpilfeFBMGTFKSKA4639-50-47 10:09:00 Test Item Value Reference Range Interpretation Comments MCH (test code = MCH) 27.5 pg 27.0-31.0 [facility] DpldnohZFEHTJJBLK0292-72-52 10:09:0014.1[facility] HermannHEMATOLOGY 2017-12-20 10:09:007.7[facility] WxjzkdrGLSBMCAKYT1202-90-16 10:09:0023.5[facility] McylpveEYCILYKJUV5281-90-68 10:09:008.4[facility] WanpthbEPAOSKOCKB4493-97-19 10:09:003.03[facility] QviypsyCSYLVXWJWL0996-55-29 10:09:006.5[facility] PARATHYROID SFZEDUW1984-65-92 10:09:000.86[facility] HermannPARATHYROID PROFILE 2017-12-20 10:09:000.86[facility] AND FHLKJ2882-63-55 17:00:00 Positive *ABN*(12/19/17 12:00 PM)[facility]annCHEM PUFHL3132-44-89 12:14:008.2 [facility]annCHEM YAVVY3098-88-30 12:14:00 Test Item Value Reference Range Interpretation Comments A/G Ratio (test code = A/G Ratio) 0.8 1 0.7-1.6 [facility]CHE[facility] SDPJL9014-82-49 12:14:009[facility]annCHEM PANEL 2017-12-19 12:14:0010[facility]annCHEM LNWCL1623-97-51 12:14:003.5[facility]annCHEM YYAGV2319-88-09 12:14:002.7[facility]annCHEM HICRO1791-84-11 12:14:004[facility]annCHEM VPUOQ1313-62-80 12:14:52434Ialmkhhw HermannCHEM VSSXK0791-64-08 12:14:000.3[facility]annCHEM GFHOH1532-70-04 12:14:0088 [facility]annCHE[facility] DPWRK5840-31-52 12:14:003.6[facility] HermannCHEM PANEL 2017-12-19 12:14:0095[facility]annCHEM EHQQF2941-13-11 12:14:67791Nndeyjwc HermannCHEM DGWEY5390-55-38 12:14:04701Ferbzctk HermannCHEM GUDNT3135-68-03 12:14:0011.70[facility]annCHEM FJVJZ2690-73-46 12:14:00 Test Item Value Reference Range Interpretation Comments B/C Ratio (test code = B/C Ratio) 9 1 6-25 [facility]annCHEM GAGOY5569-05-58 12:14:006.2[facility]annCHEM PANEL 2017-12-19 12:14:006.5[facility]annCHEM YVAMX5817-74-77 12:14:0014.6[facility]annCHEM RJKIB1465-11-95 12:14:0029[facility] HermannPARATHYROID PROFILE 2017-12-19 12:14:000.88[facility] HermannPARATHYROID KVLQZWF0165-10-32 12:14:00 0.85[facility]annCHEM UIJBP1010-42-10 10:02:004[facility]annCHEM PANEL 2017-12-19 10:02:0092[facility]annCHEM HSYLP9220-08-73 10:02:04014Gkueofnn HermannCHEM GGJPJ6849-72-02 10:02:003.6[facility]annCHEM PSTIN3858-41-57 10:02:0097[facility]annCHEM YCVMX6764-47-47 10:02:0011.80[facility]annCHEM KAKGR5764-35-17 10:02:006.8[facility]annCHE[facility] MRDXU0710-51-19 10:02:0027 [facility] TGTFL3428-01-42 10:02:0018.6[facility]annCHEM PANEL 2017-12-19 10:02:0096[facility]annCHEM PLMID6791-00-57 10:02:001.8[facility] SdqhiybBGTWQLISHC0126-73-49 10:02:0014.3[facility] GaprhnoJEELVMPLGB7689-49-48 10:02:0034.5[facility] NrbaqtnSDYAQGVALX3796-73-37 10:02:00 Test Item Value Reference Range Interpretation Comments MCH (test code = MCH) 26.8 pg 27.0-31.0 [facility] KmbgauxYADITAFZWG5103-07-46 10:02:008.0[facility]annHEMATOLOGY 2017-12-19 10:02:55359Dyvstyau VntjqtnYPSSBKKJPW4671-52-16 10:02:0077.7[facility] JxtqttcQOGPGVRXUU2699-43-04 10:02:0024.7[facility] UuhlikdOLPUTAHRVB4932-23-73 10:02:008.5[facility] MkqzttnOIOWVXNAUX1906-73-93 10:02:003.17[facility] [place] YCZHRQPEOY5615-65-86 10:02:006.6[facility] YekxzybLFHMIUUZDQ3997-29-75 10:02:000.7 [facility] BhggghcPHEDNMNQKO4016-33-01 10:02:000.2[facility]annHEMATOLOGY 2017-12-19 10:02:001+ *ABN*(12/19/17 5:02 AM)[facility] OulhtgpOEVMMSQFEV2183-13-08 10:02:001.0[facility] BlskxcoEFAUXWPQDN2143-86-89 10:02:000.6[facility] [place] YDVBKMSVKO4374-39-91 10:02:004.7[facility] IpteszbIWFHYEMJEE7120-42-41 10:02:00 10.3[facility] LzakqngJCUUXTZEZJ1955-25-55 10:02:002.9[facility]annHEMATOLOGY 2017-12-19 10:02:0015.3[facility] PikolgdTOMDXIZSJW5769-06-41 10:02:0070.9[facility] HermannPARATHYROID BYDWYAM7638-33-14 10:02:000.88[facility] HermannPARATHYROID XKGSWLQ3698-54-12 10:02:000.88[facility]annCHEM JOYRV9859-27-06 09:55:001.9 [facility]CHE[facility] CYGXC8899-92-89 09:55:008.8[facility]annHEMATOLOGY 2017-12-17 09:32:001+ *ABN*(12/17/17 4:32 AM)[facility] XmidivxVUCSQKEDVG9293-86-90 09:32:000.2[facility] RmpdamfGEBDKBWBML0162-76-99 09:32:000.6[facility] [place] TLTNFEOSSK6812-87-48 09:32:001.0[facility] KwywjuhHAREABJWGO2420-33-58 09:32:003.9 [facility] HejobhoDKHLNYBBPU1000-89-19 09:32:000.6[facility]annHEMATOLOGY 2017-12-17 09:32:002.7[facility] HxlryooXFMXVYMKLV2534-14-72 09:32:0010.4[facility] DmsjzqbZAKOGDOBXC0892-96-21 09:32:0018.1[facility] FfsnusqNXQGIMHQTU2494-36-41 09:32:0068.2[facility] CfrszroNSGESLIWED1210-59-41 09:32:79124Hvuevfgh [place] NMTVZFGJCM3078-31-73 09:32:0014.3[facility] QwpiefgVKUPAGGRXY0447-11-40 09:32:00 8.0[facility] LkzgmzwKYYAVIJPXB0300-25-43 09:32:00 Test Item Value Reference Range Interpretation Comments MCH (test code = MCH) 27.4 pg 27.0-31.0 [facility] RqjwmrfWDZDFIWRBW2662-15-76 09:32:0078.6[facility]annHEMATOLOGY 2017-12-17 09:32:0022.8[facility] SpixsbmZSGVLZGTDL8467-15-50 09:32:0034.9[facility] RwcbbloENMXMCNOHC6420-68-53 09:32:007.9[facility] QimajpnCWESHNBLGP5631-15-62 09:32:002.90[facility] OypwlgiGBDWERTWWH1705-59-87 09:32:005.7[facility] [place] YOEORFALBK3675-59-58 09:32:0080[facility] VondnxbBRPBROWSAL9197-26-58 09:32:007.0 [facility] EzxuccsVUPVYQDMJX2280-98-86 09:32:001.13[facility] HermannIMMUNOLOGY 2017-12-17 09:32:000.83[facility] GaqewybSGVHHXDMPP6832-79-14 09:32:000.85[facility] KhevqltVNZMNXKLXH8567-20-12 09:32:000.48[facility] TauebipTUESGCPDIR4050-32-78 09:32:003.72[facility] AyxdmnlNUAPKZHEIZ9381-19-53 09:32:0011.8[facility] [place] ULOSHBLUEW7146-71-11 09:32:0016.2[facility] ZkhxqiiIPCNBJIOWY0613-07-57 09:32:00 12.1[facility] QtkwebrHFIYNBALBF1188-81-56 09:32:006.8[facility] HermannIMMUNOLOGY 2017-12-17 09:32:0053.1[facility] NmchonzMUDGYALSWX7717-32-59 09:32:0091[facility] RbcxzjaXCIFLVMBGY3151-63-13 09:32:0029[facility] TjcycgaUDERMSRPEK5171-13-00 09:32:00Negative (12/17/17 4:32 AM)[facility] MyzlshtOOIAIREJCU4608-26-14 09:32:00 Negative (12/17/17 4:32 AM)[facility] PkvzvokUOUBKAXBRY2072-36-18 09:32:00Negative *NA*(12/17/17 4:32 AM)[facility] CacjctsIOZSDJAZYM3719-54-74 09:32:00<3.1 [facility] XdivrbaZXYYQXXAZV7556-99-59 09:32:00Negative *NA*(12/17/17 4:32 AM) [facility] ZijvzkfQXUCIUYWDF7037-52-75 09:32:00Negative (12/17/17 4:32 AM)[facility] CtbpxkgRAOBDFNNIH6956-46-81 09:32:003.42[facility] KeeisdxSPZFVCWRBM5969-39-51 09:32:17925.40[facility] MxjldzdAERDRYPCGT9894-22-39 09:32:0059.41[facility] ZBUBFZQEYD0245-48-42 09:32:00Negative (12/17/17 4:32 AM)[facility] FKQEPLLWFJ6963-04-88 09:32:00<10[facility] HermannANEMIA JIWQN2162-43-98 22:29:0012[facility] HermannANEMIA UMORS6515-93-48 22:29:08496Nfdajwdf Mralo ANEMIA UETNL0675-08-54 22:29:70540Corpkmkk HermannANEMIA QYNCY4336-63-71 22:29:0034[facility] HermannANEMIA ZZCDR0141-07-25 22:29:41249Cbxiwqzu [place] ANEMIA XIUHA6510-29-04 22:29:52150Qdhqxsbn HermannANEMIA RQEVX5553-58-64 22:29:0019.0[facility] HermannCHEM YQNSL3397-61-07 22:29:0012.3[facility] [place] PARATHYROID ZNLRYQO1047-79-13 22:29:07702.7[facility] UmvsfmmCYNSQLMQII6962-73-50 20:13:001.5[facility] HermannCARDIAC HGTCUVS4190-77-69 20:12:00<0.02[facility] HermannCARDIAC OEDWXVM5845-88-47 20:12:26392Yspwovcv HermannCARDIAC ENZYMES 2017-12-15 20:12:005.4[facility] HermannCARDIAC GKAICPI0237-97-37 20:12:00 Test Item Value Reference Range Interpretation Comments CK MB Index (test 1.4 1 See_Comment [Automate d message] The code = CK MB Index) system w [facility] generated this result transmit emerson reference range : <=2.5. The reference range was not used to interpr et this result as erinn l/abnormal. [facility]annCHEM URUMA3391-73-95 20:12:000.4[facility]annCHEM PANEL 2017-12-15 20:12:0014[facility]annCHEM NITWB9342-92-46 20:12:0017[facility]annCHEM TWKPO5320-48-65 20:12:64038Prxebshb HermannCHEM HPGYZ1322-29-57 20:12:003.4[facility]annCHEM EMSFA1910-78-12 20:12:007.4[facility]annCHEM LRQMO9922-39-10 20:12:00 Test Item Value Reference Range Interpretation Comments B/C Ratio (test code = B/C Ratio) 9 1 6-25 [facility]annCHE[facility] QHZDJ9310-74-39 20:12:00 Test Item Value Reference Range Interpretation Comments A/G Ratio (test code = A/G Ratio) 0.8 1 0.7-1.6 [facility]CHE[facility] MSKJA1314-38-40 20:12:004.0[facility] HermannCARDIAC ENZYMES 2017-12-15 16:39:00<0.02[facility]annCARDIAC SHUTXRZ5657-61-08 16:39:45980 [facility]annCARDIAC JVJNMCC3206-45-88 16:39:004.8[facility] HermannCARDIAC XQVUDSP0787-34-87 16:39:00 Test Item Value Reference Range Interpretation Comments CK MB Index (test 1.4 1 See_Comment [Automate d message] The code = CK MB Index) system w [facility] generated this result transmit emerson reference range : <=2.5. The reference range was not used to interpr et this result as erinn l/abnormal. [facility]URINE RFBU5099-75-09 14:38:0020.0[facility] CHEM 2017-12-15 14:38:0031[facility]annURINE GNMM7805-96-32 14:38:0022[facility]annURINE IGWF9087-76-49 14:38:51372.9[facility]UR[facility] EUQI9160-62-82 14:38:00 Test Item Value Reference Range Interpretation Comments U Prot/Creat (test code = U 4.35 1 Prot/Creat) [facility] VZWP1575-63-13 14:38:0056.70[facility] CHEM 2017-12-15 14:38:50775Scluokrl HermannURINE LTGH0117-42-94 14:38:00None Seen (12/15/17 8:38 AM)[facility] AND UHYPM0262-36-66 14:33:00Performed *NA*(12/15/17 8:33 AM)[facility] AND ZNONA0317-68-82 14:33:0050[facility] AND JTGFD3693-40-85 14:33:00Negative (12/15/17 8:33 AM)[facility] AND ZEVTU0489-42-50 14:33:00Small *ABN*(12/15/17 8:33 AM)[facility] AND ZIAAX4419-21-28 14:33:00Negative (12/15/17 8:33 AM)[facility] AND MVADN8819-94-16 14:33:003[facility] AND STOOL 2017-12-15 14:33:001[facility] AND VRNJM0239-49-65 14:33:00Slight *ABN*(12/15/17 8:33 AM)[facility] AND YYOGW2258-35-10 14:33:00 Test Item Value Reference Range Interpretation Comments UA Spec Grav (test code = UA Spec 1.008 1 Grav) [facility] AND TQQBU6536-46-30 14:33:00 Test Item Value Reference Range Interpretation Comments UA pH (test code = UA pH) 5.0 1 5.0-8.0 [facility] AND IJWJO1028-18-86 14:33:00Negative *NA*(12/15/17 8:33 AM) [facility]annCARDIAC VPZFEOC6603-43-36 12:48:00 Test Item Value Reference Range Interpretation Comments CK MB Index (test 1.3 1 See_Comment [Automate d message] The code = CK MB Index) system w [facility] generated this result transmit emerson reference range : <=2.5. The reference range was not used to interpr et this result as erinn l/abnormal. [facility]annCARDIAC FJUUNWR7184-63-62 12:48:512911Aszpulsf HermannCARDIAC RGWCKGD2151-00-40 12:48:75362Vqpdhxxu HermannCARDIAC JCUUSQN1355-43-96 12:48:00 4.8[facility]annCARDIAC HZXYQXK2868-38-61 12:48:00<0.02[facility] CHEM NYZRD8869-55-71 12:48:00 Test Item Value Reference Range Interpretation Comments A/G Ratio (test code = A/G Ratio) 0.8 1 0.7-1.6 [facility]CHE[facility] AHAFC2110-23-83 12:48:007.0[facility]annCHEM PANEL 2017-12-15 12:48:003.9[facility]annCHEM YDEJU7756-21-04 12:48:003.1[facility]annCHEM MBZNR1864-08-77 12:48:000.4[facility]annCHEM EAEVW5425-22-21 12:48:63003Kbelszrt HermannCHEM GUWNR6882-13-29 12:48:0015[facility] HermannCHEM ZKMIS5138-59-71 12:48:0013[facility]annCHEM GKSXB4712-56-40 12:48:00 Test Item Value Reference Range Interpretation Comments B/C Ratio (test code = B/C Ratio) 9 1 6-25 [facility] UkvltssJAUQKHUOYR3685-22-38 12:48:001.17[facility] [place]
[2021-01-01] MEDS ORDERED: METHYLPREDNISOLONE 125 MG INJ ONE (13:43)
[2021-01-01] MEDS ORDERED: ALBUTEROL 2.5 MG/3 ML NEB SOL ONE (13:43)
[2021-01-01] MEDS ORDERED: ACETAMINOPHEN 500 MG TAB ONE (13:43)
[2021-01-01 13:57] LABS: Arterial Blood Carboxyhemoglob 2.1 % (0-1.5); Blood Gas Oxyhemoglobin 90.1 % (94-97); Blood O2 Saturation 93.1 % (92-98.5)
[2021-01-01 14:07] LABS: Absolute Lymphocytes (CBC) 0.5 K/uL (0.7-4.9); Basophils % 0.8 % (0-1.3); Hematocrit 26.5 % (39.6-49.0); Lymphocytes % 6.8 % (15.3-44.8); MPV 8.1 fL (7.6-11.3); RBC Red Blood Cell Count 3.08 M/uL (4.33-5.43)
[2021-01-01] MEDS ORDERED: FENTANYL CITR 100 MCG/2 ML ONE (14:11)
[2021-01-01 14:27] LABS: Protime INR 0.98
--- NOTE | 2021-01-01 15:12 | RAD REPORT ---
EXAM DESCRIPTION: Kiran Single View3 2:15 pm CLINICAL HISTORY: Shortness of breath COMPARISON: November 2020 FINDINGS: Mild bilateral interstitial lung opacities. Heart is mildly to moderately enlarged. Central venous catheter remains in place. IMPRESSION: Mild pulmonary edema
[2021-01-01 15:19] LABS: SARS-COV-2 RT PCR NEGATIVE (NEGATIVE)
[2021-01-01 15:41] LABS: ALT/SGPT 11 U/L (12-78); AST/SGOT 31 U/L (15-37); Albumin 3.2 g/dL (3.4-5.0); Alkaline Phosphatase 89 U/L (45-117); BUN Blood Urea Nitrogen 57 mg/dL (7-18); Bicarbonate 27 mmol/L (21-32); Bilirubin Direct 0.1 mg/dL (0-0.2); Bilirubin Total 0.4 mg/dL (0.2-1.0); CKMB Creatine Kinase MB 1.9 ng/mL (0.3-3.6); Creatine Phosphokinase 81 U/L (39-308); Glucose Level 75 mg/dL (74-106); NT PRO-BNP 42620 pg/mL (<125); Protein, Total 6.8 g/dL (6.4-8.2); Sodium Level 133 mmol/L (136-145); Troponin (Emerg Dept Use Only) < 0.02 ng/mL (0.0-0.045)
[2021-01-01 15:46] LABS: Potassium 5.9 mmol/L (3.5-5.1)
--- NOTE | 2021-01-01 16:31 | EDPHYS ---
Physician Documentation [facility] Name: Alex Cagle Age: 60 yrs Sex: Male : 1960 Arrival Date: 01/01/2021 Time: 12:31 Bed 15 Private MD: ED Physician Clayton Begum HPI: 01/01 15:48 This 60 yrs old Male presents to ER via Wheelchair with complaints of jr8 Shortness Of Breath, Fever. 15:48 The patient has shortness of breath at rest. Onset: The symptoms/episode began/occurred jr8 gradually, 1 week(s) ago, and became worse and became persistent. Duration: The symptoms are continuous. The patient's shortness of breath has no apparent modifying factors. Associated signs and symptoms: Pertinent positives: fever. Severity of symptoms: At their worst the symptoms were moderate in the emergency department the symptoms are unchanged. The patient has not experienced similar symptoms in the past. The patient has not recently seen a physician. Patient stated that he has had fevers on/off for a week. Unknown origin. Came to ED today because he as having increased shortness of breath. Has missed last week of dialysis. Historical: - Allergies: 12:42 NKA; ll1 - PMHx: 12:42 CHF; Diabetes - NIDDM; ESRD; Hypertension; insomnia; ll1 - PSHx: 12:42 Shoulder surgery; dialysis ports; ll1 - Immunization history:: Flu vaccine is up to date. - Social history:: Smoking status: Patient denies any tobacco usage or history of. ROS: 15:48 ENT: Negative for injury, pain, and discharge, Neck: Negative for injury, pain, and jr8 swelling, Abdomen/GI: Negative for abdominal pain, nausea, vomiting, diarrhea, and constipation, Back: Negative for injury and pain, MS/Extremity: Negative for injury and deformity, Skin: Negative for injury, rash, and discoloration, Neuro: Negative for headache, weakness, numbness, tingling, and seizure. 15:48 Constitutional: Positive for fever, malaise. 15:48 Cardiovascular: Positive for chest pain, orthopnea, Negative for edema. 15:48 Respiratory: Positive for dyspnea on exertion, orthopnea, shortness of breath, wheezing. Exam: 15:48 Eyes: Pupils equal round and reactive to light, extra-ocular motions intact. Lids and jr8 lashes normal. Conjunctiva and sclera are non-icteric and not injected. Cornea within normal limits. Periorbital areas with no swelling, redness, or edema. ENT: Nares patent. No nasal discharge, no septal abnormalities noted. Tympanic membranes are normal and external auditory canals are clear. Oropharynx with no redness, swelling, or masses, exudates, or evidence of obstruction, uvula midline. Mucous membranes moist. Neck: Trachea midline, no thyromegaly or masses palpated, and no cervical lymphadenopathy. Supple, full range of motion without nuchal rigidity, or vertebral point tenderness. No Meningismus. Cardiovascular: Regular rate and rhythm with a normal S1 and S2. No gallops, murmurs, or rubs. Normal PMI, no JVD. No pulse deficits. Abdomen/GI: Soft, non-tender, with normal bowel sounds. No distension or tympany. No guarding or rebound. No evidence of tenderness throughout. Back: No spinal tenderness. No costovertebral tenderness. Full range of motion. Skin: Warm, dry with normal turgor. Normal color with no rashes, no lesions, and no evidence of cellulitis. MS/ Extremity: Pulses equal, no cyanosis. Neurovascular intact. Full, normal range of motion. Neuro: Awake and alert, GCS 15, oriented to person, place, time, and situation. Cranial nerves II-XII grossly intact. Motor strength 5/5 in all extremities. Sensory grossly intact. 15:48 Respiratory: mild respiratory distress is noted, Respirations: tachypnea, that is mild, Breath sounds: rales, that are mild, are located in both bases, wheezing: expiratory that is moderate, is heard diffusely. Vital Signs: 12:38 BP 191 / 88; Pulse 94; Resp 24; Temp 99.7; Pulse Ox 96% on R/A; Weight 96.16 kg; Height ll1 5 ft. 7 in. (170.18 cm); Pain 10/10; 14:46 BP 173 / 72; Pulse 78; Resp 17 S; Pulse Ox 98% on R/A; jd3 16:24 Pulse 79; Resp 17 S; Pulse Ox 97% on R/A; jd3 17:17 BP 177 / 92; Pulse 79; Resp 18 S; Pulse Ox 97% on 2 lpm NC; jd3 18:36 BP 159 / 71; Pulse 76; Resp 18 S; Pulse Ox 98% on 2 lpm NC; jd3 20:24 BP 158 / 84; Pulse 79; Resp 18; Temp 97.6; Pulse Ox 96% ; Pain 0/10; cr4 12:38 Body Mass Index 33.20 (96.16 kg, 170.18 cm) ll1 MDM: 13:10 Patient medically screened. [facility] 16:31 Data reviewed: vital signs, nurses notes, lab test result(s), EKG, radiologic studies, [facility] plain films. Data interpreted: Pulse oximetry: on room air is 96 %. Interpretation: acceptable. Counseling: I had a detailed discussion with the patient and/or guardian regarding: the historical points, exam findings, and any diagnostic results supporting the discharge/admit diagnosis, lab results, radiology results, the need for further work-up and treatment in the hospital. 01/01 13:15 Order name: ABG; Complete Time: 15:16 [facility] 01/01 13:15 Order name: C-Reactive Protein [facility] 01/01 13:15 Order name: Basic Metabolic Panel [facility] 01/01 13:15 Order name: Blood Culture Adult (2) [facility] 01/01 13:15 Order name: CBC with Diff [facility] 01/01 13:15 Order name: Ckmb [facility] 01/01 13:15 Order name: CPK [facility] 01/01 13:15 Order name: Lactate [facility] 01/01 13:15 Order name: LFT's [facility] 01/01 13:15 Order name: Procalcitonin [facility] 01/01 13:15 Order name: Protime (+inr) [facility] 01/01 13:15 Order name: Ptt, Activated; Complete Time: 15:16 [facility] 01/01 13:15 Order name: Troponin (emerg Dept Use Only); Complete Time: 17:10 [facility] 01/01 13:15 Order name: BNP; Complete Time: 17:10 [facility] 01/01 13:15 Order name: Chest Single View XRAY; Complete Time: 15:16 [facility] 01/01 13:15 Order name: Ferritin; Complete Time: 17:10 [facility] 01/01 13:16 Order name: C-Reactive Protein; Complete Time: 17:10 EDPR 01/01 13:16 Order name: Basic Metabolic Panel; Complete Time: 17:10 EDMS 01/01 13:16 Order name: Blood Culture EDMS 01/01 13:16 Order name: CBC with Automated Diff; Complete Time: 15:16 EDMS 01/01 13:16 Order name: CKMB Creatine Kinase MB; Complete Time: 17:10 EDMS 01/01 13:16 Order name: Creatine Phosphokinase; Complete Time: 17:10 EDMS 01/01 13:16 Order name: Lactate; Complete Time: 14:31 EDMS 01/01 13:16 Order name: Liver (Hepatic) Function; Complete Time: 17:10 EDMS 01/01 13:16 Order name: Procalcitonin; Complete Time: 15:16 EDMS 01/01 13:16 Order name: Protime (+INR); Complete Time: 15:16 EDMS 01/01 15:19 Order name: COVID-19/FLU A+B; Complete Time: 15:34 EDMS 01/01 13:15 Order name: Accucheck; Complete Time: 13:22 [facility] 01/01 13:15 Order name: Cardiac monitoring; Complete Time: 14:14 [facility] 01/01 13:15 Order name: EKG - Nurse/Tech; Complete Time: 14:14 [facility] 01/01 13:15 Order name: IV Saline Lock - Large Bore; Complete Time: 13:58 [facility] 01/01 13:15 Order name: Labs collected and sent; Complete Time: 13:58 [facility] 01/01 13:15 Order name: O2 Per Protocol; Complete Time: 13:22 [facility] 01/01 13:15 Order name: O2 Sat Monitoring; Complete Time: 13:22 Administered Medications: 14:13 Drug: SOLU-Medrol 125 mg Route: IVP; Site: right wrist; jd3 15:10 Follow up: Response: No adverse reaction jd3 14:13 Drug: Albuterol 2.5 mg Route: Inhalation; jd3 14:13 Drug: fentaNYL (PF) 50 mcg Route: IVP; Site: right wrist; jd3 18:39 Follow up: Response: No adverse reaction; RASS: Alert and Calm (0) jd3 14:14 Drug: Acetaminophen 1000 mg Route: PO; jd3 15:10 Follow up: Response: No adverse reaction jd3 14:33 Drug: Albuterol 2.5 mg Route: Inhalation; jd3 14:53 Drug: Albuterol 2.5 mg Route: Inhalation; jd3 15:00 Follow up: Response: No adverse reaction jd3 16:53 Drug: LevaQUIN 500 mg Volume: 100 ml; Route: IVPB; Infused Over: 60 mins; Site: right jd3 wrist; 17:50 Follow up: Response: No adverse reaction; IV Status: Completed infusion jd3 16:53 Drug: Rocephin - (cefTRIAXone) 1 grams Route: IVPB; Infused Over: 30 mins; Site: right jd3 wrist; 17:50 Follow up: Response: No adverse reaction; IV Status: Completed infusion jd3 19:10 CANCELLED (Inappropriate at this time): Labetalol 20 mg IVP once over 2 mins ej 19:25 Drug: Lasix (furosemide) 120 mg Route: IVP; Site: right wrist; fu 20:28 Follow up: Response: No adverse reaction cr4 Disposition: 01/01/21 16:30 Hospitalization ordered by Lamberto Ascencio for Inpatient Admission. Preliminary diagnosis are End stage renal disease, Acute combined systolic (congestive) and diastolic (congestive) heart failure, Bacteremia, Hypoxemia. - Bed requested for Telemetry/MedSurg (Inpatient). - Status is Inpatient Admission. cr4 - Condition is Fair. - Problem is new. - Symptoms have improved. Addendum: 01/04/2021 08:22 Co-signature as Attending Physician, Clayton Begum MD I agree with the assessment and k dr plan of care. Signatures: Dispatcher [employer] EDMS Clara Tim RN RN mw Rittger, Kevin, MD MD [facility] Trinity Morales RN RN cr4 Jose Jerez PA PA jr8 Parmjit Jackson RN RN jd3 Pa Johnson RN RN fu Lewis, Lynsay, RN RN ll1 George Francis PA PA ej Corrections: (The following items were deleted from the chart) 01/01 14:36 13:17 CORONAVIRUS+MR.LAB.BRZ ordered. EDMS EDMS 14:36 13:17 Influenza Screen (A \T\ B)+BA.LAB.BRZ ordered. EDMS EDMS 16:31 16:30 Hospitalization Ordered by Jasbir Hinds for Inpatient Admission. Preliminary jr8 diagnosis is End stage renal disease; Acute combined systolic (congestive) and diastolic (congestive) heart failure; Severe sepsis. Bed requested for Telemetry/MedSurg (Inpatient). Status is Inpatient Admission. Condition is Fair. Problem is new. Symptoms have improved. jr8 17:28 16:31 01/01/2021 16:30 Hospitalization Ordered by Jasbir Hinds for Inpatient jr8 Admission. Preliminary diagnosis is End stage renal disease; Acute combined systolic (congestive) and diastolic (congestive) heart failure; Bacteremia; Hypoxemia. Bed requested for Telemetry/MedSurg (Inpatient). Status is Inpatient Admission. Condition is Fair. Problem is new. Symptoms have improved. jr8 19:10 19:09 Labetalol 20 mg IVP once over 2 mins ordered. ej ej 19:40 17:28 01/01/2021 16:30 Hospitalization Ordered by Lambetro Ascencio MD for Inpatient mw Admission. Preliminary diagnosis is End stage renal disease; Acute combined systolic (congestive) and diastolic (congestive) heart failure; Bacteremia; Hypoxemia. Bed requested for Telemetry/MedSurg (Inpatient). Status is Inpatient Admission. Condition is Fair. Problem is new. Symptoms have improved. jr8 20:28 19:40 01/01/2021 16:30 Hospitalization Ordered by Lamberto Ascencio MD for Inpatient cr4 Admission. Preliminary diagnosis is End stage renal disease; Acute combined systolic (congestive) and diastolic (congestive) heart failure; Bacteremia; Hypoxemia. Bed requested for Telemetry/MedSurg (Inpatient). Status is Inpatient Admission. Condition is Fair. Problem is new. Symptoms have improved.
--- NOTE | 2021-01-01 16:31 | ER ---
Nurse's Notes [facility] Name: Alex Cagle Age: 60 yrs Sex: Male : 1960 Arrival Date: 01/01/2021 Time: 12:31 Bed 15 Private MD: Diagnosis: End stage renal disease;Acute combined systolic (congestive) and diastolic (congestive) heart failure;Bacteremia;Hypoxemia Presentation: 01/01 12:38 Chief complaint: Patient states: SOB, cough, fever since Monday. Fever at home ll1 100.8. Dialysis M, W, F. Last dialysis Monday.. Coronavirus screen: Client denies travel out of the [place] in the last 14 days. congestion, cough unrelated to allergies, difficulty breathing, fatigue, fever, shortness of breath, loss of taste or smell, Client presents with at least one sign or symptom that may indicate coronavirus-19. Standard/surgical mask placed on the client. Ebola Screen: Patient denies travel to an Ebola-affected area in the 21 days before illness onset. Initial Sepsis Screen: Does the patient meet any 2 criteria? HR > 90 bpm. No. Patient's initial sepsis screen is negative. Does the patient have a suspected source of infection? Yes: Productive cough/pneumonia. Risk Assessment: Do you want to hurt yourself or someone else? Patient reports no desire to harm self or others. Onset of symptoms was December 30, 2020. 12:38 Method Of Arrival: Wheelchair ll1 12:38 Acuity: DEJAN 3 ll1 Triage Assessment: 14:47 Respiratory: Reports shortness of breath at rest Onset: The symptoms/episode jd3 began/occurred gradually, the patient has mild shortness of breath. Historical: - Allergies: 12:42 NKA; ll1 - PMHx: 12:42 CHF; Diabetes - NIDDM; ESRD; Hypertension; insomnia; ll1 - PSHx: 12:42 Shoulder surgery; dialysis ports; ll1 - Immunization history:: Flu vaccine is up to date. - Social history:: Smoking status: Patient denies any tobacco usage or history of. Screenin:46 Abuse screen: Denies threats or abuse. Nutritional screening: No deficits noted. jd3 Tuberculosis screening: No symptoms or risk factors identified. Fall Risk Ambulatory Aid- None/Bed Rest/Nurse Assist (0 pts). Gait- Normal/Bed Rest/Wheelchair (0 pts) Mental Status- Oriented to own ability (0 pts). Total Lockhart Fall Scale indicates No Risk (0-24 pts). Assessment: 12:55 General: Appears in no apparent distress. uncomfortable, Behavior is calm, cooperative, jd3 appropriate for age. Pain: Complains of pain in chest Quality of pain is described as pressure. Neuro: Level of Consciousness is awake, alert, obeys commands, Oriented to person, place, time, situation. Cardiovascular: Capillary refill < 3 seconds Patient's skin is warm and dry. Rhythm is regular. Respiratory: Reports shortness of breath at rest cough that is non-productive, persistent Airway is patent Respiratory effort is even, labored, Respiratory pattern is symmetrical, tachypnea Breath sounds are diminished. GI: No signs and/or symptoms were reported involving the gastrointestinal system. : No signs and/or symptoms were reported regarding the genitourinary system. EENT: No signs and/or symptoms were reported regarding the EENT system. Derm: Skin is intact, Skin is dry, Skin is normal, Skin temperature is warm. Musculoskeletal: Circulation, motion, and sensation intact. Range of motion: intact in all extremities. 13:50 Reassessment: No changes from previously documented assessment. Patient and/or family jd3 updated on plan of care and expected duration. Pain level reassessed. Patient is alert, oriented x 3, equal unlabored respirations, skin warm/dry/pink. 14:49 Reassessment: Patient and/or family updated on plan of care and expected duration. Pain jd3 level reassessed. Patient is alert, oriented x 3, equal unlabored respirations, skin warm/dry/pink. Patient states feeling better. 15:30 Reassessment: Patient appears in no apparent distress at this time. Patient and/or jd3 family updated on plan of care and expected duration. Pain level reassessed. Patient is alert, oriented x 3, equal unlabored respirations, skin warm/dry/pink. Patient states feeling better. 16:30 Reassessment: Patient appears in no apparent distress at this time. No changes from jd3 previously documented assessment. Patient and/or family updated on plan of care and expected duration. Pain level reassessed. Patient is alert, oriented x 3, equal unlabored respirations, skin warm/dry/pink. 17:17 Reassessment: Patient appears in no apparent distress at this time. Patient and/or jd3 family updated on plan of care and expected duration. Pain level reassessed. Patient is alert, oriented x 3, equal unlabored respirations, skin warm/dry/pink. Patient states feeling better. 18:38 Reassessment: Patient appears in no apparent distress at this time. Patient and/or jd3 family updated on plan of care and expected duration. Pain level reassessed. Patient is alert, oriented x 3, equal unlabored respirations, skin warm/dry/pink. hospitalist at bedside. 19:50 Reassessment: Received report from Pa Otto. The patient is asleep breathing regular cr4 vital signs wnl.. 20:26 Reassessment: The patient's was called to inform her that he was being admitted to cr4 room 228.. General:. Vital Signs: 12:38 BP 191 / 88; Pulse 94; Resp 24; Temp 99.7; Pulse Ox 96% on R/A; Weight 96.16 kg; Height ll1 5 ft. 7 in. (170.18 cm); Pain 10/10; 14:46 BP 173 / 72; Pulse 78; Resp 17 S; Pulse Ox 98% on R/A; jd3 16:24 Pulse 79; Resp 17 S; Pulse Ox 97% on R/A; jd3 17:17 BP 177 / 92; Pulse 79; Resp 18 S; Pulse Ox 97% on 2 lpm NC; jd3 18:36 BP 159 / 71; Pulse 76; Resp 18 S; Pulse Ox 98% on 2 lpm NC; jd3 20:24 BP 158 / 84; Pulse 79; Resp 18; Temp 97.6; Pulse Ox 96% ; Pain 0/10; cr4 12:38 Body Mass Index 33.20 (96.16 kg, 170.18 cm) ll1 ED Course: 12:31 Patient arrived in ED. ds1 12:41 Triage completed. ll1 12:42 Arm band placed on Patient placed in an exam room, on a stretcher. ll1 12:53 Parmjit Jackson RN is Primary Nurse. jd3 13:07 Jose Jerez PA is PHCP. jr8 13:07 Clayton Begum MD is Attending Physician. jr8 13:35 Inserted saline lock: 22 gauge in right wrist, using aseptic technique. Blood collected.jp3 13:35 First set of blood cultures drawn by me. jp3 13:45 Second set of blood cultures drawn by me. Initial lab(s) drawn, by me, sent to lab. jp3 COVID swab sent to lab. Flu and/or RSV swab sent to lab. 13:57 Bed in low position. Call light in reach. Side rails up X 1. Verbal reassurance given. jp3 production line on. Pulse ox on. NIBP on. 14:14 Chest Single View XRAY In Process Unspecified. EDMS 16:29 Jasbir Hinds is Hospitalizing Provider. jr8 17:28 Lamberto Ascencio MD is Hospitalizing Provider. jr8 19:14 Primary Nurse role handed off by Parmjit Jackson RN eb 19:25 Pa Johnson, KATIANA is Primary Nurse. fu 20:25 No provider procedures requiring assistance completed. Patient admitted, IV remains in cr4 place. Administered Medications: 14:13 Drug: SOLU-Medrol 125 mg Route: IVP; Site: right wrist; jd3 15:10 Follow up: Response: No adverse reaction jd3 14:13 Drug: Albuterol 2.5 mg Route: Inhalation; jd3 14:13 Drug: fentaNYL (PF) 50 mcg Route: IVP; Site: right wrist; jd3 18:39 Follow up: Response: No adverse reaction; RASS: Alert and Calm (0) jd3 14:14 Drug: Acetaminophen 1000 mg Route: PO; jd3 15:10 Follow up: Response: No adverse reaction jd3 14:33 Drug: Albuterol 2.5 mg Route: Inhalation; jd3 14:53 Drug: Albuterol 2.5 mg Route: Inhalation; jd3 15:00 Follow up: Response: No adverse reaction jd3 16:53 Drug: LevaQUIN 500 mg Volume: 100 ml; Route: IVPB; Infused Over: 60 mins; Site: right jd3 wrist; 17:50 Follow up: Response: No adverse reaction; IV Status: Completed infusion jd3 16:53 Drug: Rocephin - (cefTRIAXone) 1 grams Route: IVPB; Infused Over: 30 mins; Site: right jd3 wrist; 17:50 Follow up: Response: No adverse reaction; IV Status: Completed infusion jd3 19:10 CANCELLED (Inappropriate at this time): Labetalol 20 mg IVP once over 2 mins ej 19:25 Drug: Lasix (furosemide) 120 mg Route: IVP; Site: right wrist; fu 20:28 Follow up: Response: No adverse reaction cr4 Outcome: 16:30 Decision to Hospitalize by Provider. jr8 20:25 Admitted to Med/surg accompanied by tech, via wheelchair, room 228, with chart, [facility]25 Condition: stable 20:25 Instructed on the need for admit. 20:28 Patient left the ED. cr4 Signatures: Dispatcher [employer] EDRI Linda Martel ds1 Triniyt Morales RN RN cr4 Jose Jerez PA PA jr8 Parmjit Jackson RN RN jPa Fuentes, RN RN Feli Wren Jacob jp3 Jose Ansari RN RN ll1 George Francis Corrections: (The following items were deleted from the chart) 18:39 15:10 Response: No adverse reaction jd3 jd3
[2021-01-01] MEDS ORDERED: Levofloxacin500mg IV 500 MG/100 ML BAG IV ONE (16:53)
[2021-01-01] MEDS ORDERED: CEFTRIAXONE/SWI 1gm 1 GM/10 ML SYR ONE (16:53)
[2021-01-01 17:04] LABS: Ferritin 692.7 ng/mL (26-388)
[2021-01-01] MEDS ORDERED: FUROSEMIDE 40 MG/4 ML VIAL ONE (19:33)
[2021-01-01] MEDS ORDERED: ACETAMINOPHEN 500 MG TAB PO PRN (20:32)
[2021-01-01] MEDS ORDERED: ONDANSETRON 4 MG/2 ML VIAL IV PRN (20:32)
[2021-01-01] MEDS ORDERED: LABETALOL 20 MG/4ML SYRINGE IV PRN (20:32)
[2021-01-01] MEDS: INSULIN -REGULAR HUMAN 50 UNIT/0.5 ML ML SQ SCH (21:00)
[2021-01-01] MEDS ORDERED: CODEINE 30MG/APAP 300MG TAB PO ONE (21:41)
[2021-01-01] MEDS ORDERED: DOCUSATE NA 100 MG CAP PO PRN (21:43)
[2021-01-01 22:40] VITALS: BMI 33.5
[2021-01-02] MEDS: HEPARIN 5000 UNIT/ML 1 ML VIAL SQ SCH ×2 (01:09→08:43)
[2021-01-02 02:03] VITALS: O2SAT 94
--- NOTE | 2021-01-02 02:33 | P.HP ---
Certification for Inpatient Patient admitted to: Inpatient With expected LOS: >2 Midnights Patient will require the following post-hospital care: None Practitioner: I am a practitioner with admitting privileges, knowledge of patient current condition, hospital course, and medical plan of care. Services: Services provided to patient in accordance with Admission requirements found in Title 42 Section 412.3 of the Code of Federal Regulations Patient History Date of Service: 01/01/21 Reason for admission: ESRD, missed dialysis History of Present Illness: Mr. Cagle is a 60 yo male with ESRD on HD, CHF, DM, HTN here today because he missed several days of dialysis. He says he thought he had a stomach bug and could not go to dialysis because he had a fever. He reports fatigue, malaise and lower back pain. He denies night sweats, chills, nausea vomiting, headache. He normally receives dialysis by [facility]. CXR shows mild pulmonary edema. H/H 8.7/26.5. Plt 144. Na 133. K 5.9. BUN 57. Cr 11.6. GFR 5. BNP 20826. Allergies No Known Allergies Allergy (Verified 01/01/21 21:09) Home Medications: Amlodipine Besylate/Benazepril [Amlodipine-Benazepril 10-20 mg] 1 tab PO TID 11/27/20 Calcium Acetate [Phoslo] 2 cap PO BID 11/27/20 Calcium Acetate [Phoslo] 6 cap PO TIDWM 11/27/20 Codeine/APAP [Tylenol #3*] 1 tab PO QID PRN 11/27/20 Ferric Citrate [Auryxia] 1 tab PO BID 11/27/20 Ferric Citrate [Auryxia] 2 tab PO TIDWM 11/27/20 Folic Acid/Vit B Complex and C [Fauzia-Conor Tablet] 1 tab PO DAILY 11/27/20 Furosemide [Lasix] 80 mg PO BID 11/27/20 Tamsulosin [Flomax*] 1 cap PO BEDTIME 11/27/20 diazePAM [Diazepam] 10 mg PO BID PRN 11/27/20 Hydralazine HCl 100 mg PO Q8H 30 Days #90 tablet 11/30/20 carvediloL [Coreg*] 25 mg PO BID 30 Days #60 tab 11/30/20 - Past Medical/Surgical History Has patient received pneumonia vaccine in the past: No Diabetic: Yes -: End-stage renal disease on hemodialysis -: Hypertension -: Peritoneal dialysis port -: shoulder surgery Psychosocial/ Personal History: Patient - Family History Father -: Heart disease - Social History Smoking Status: Never smoker Alcohol use: No CD- Drugs: No Caffeine use: No Place of Residence: Home Review of Systems General: Fever, Weakness, Malaise, As per HPI Eyes: Unremarkable ENT: Unremarkable Respiratory: Unremarkable Cardiovascular: Unremarkable Gastrointestinal: Unremarkable Genitourinary: Unremarkable Musculoskeletal: Back Pain Integumentary: Unremarkable Neurological: Unremarkable Lymphatics: Unremarkable Physical Examination - Vital Signs Temperature: 98.6 F Blood Pressure: 162/80 Pulse: 88 Respirations: 20 Pulse Ox (%): 92 - Physical Exam General: Alert, Oriented x3, Disheveled HEENT: Atraumatic, Normocephalic, PERRLA, Mucous membr. moist/pink, EOMI, Sclerae nonicteric Neck: Supple, 2+ carotid pulse no bruit, JVD not distended, No Thyromegaly, No LAD Respiratory: Normal air movement, Crackles/rales Cardiovascular: No edema, Normal pulses, Regular rate/rhythm, Normal S1 S2, No gallops, No rubs, No murmurs Capillary refill: <2 Seconds Gastrointestinal: Normal bowel sounds, Soft and benign, Non-distended, No ascites, No tenderness, No masses, No rebound, No guarding Musculoskeletal: No clubbing, No swelling, No contractures, No erythema, No tenderness, No warmth Integumentary: No rashes, No breakdown, No significant lesion, No tenderness/swelling, No erythema, No warmth, No cyanosis Neurological: Normal speech, Normal strength at 5/5 x4 extr, Normal tone, Sensation intact, Cranial nerves 3-12 intact Lymphatics: No axilla or inguinal lymphadenopathy - Studies Laboratory Data (last 24 hrs) 01/01/21 13:40: PT 11.3, INR 0.98, APTT 31.6 01/01/21 13:40: WBC 7.90, Hgb 8.7 L, Hct 26.5 L, Plt Count 144 L 01/01/21 13:40: Sodium 133 L, Potassium 5.9 H*, BUN 57 H, Creatinine 11.60 H*, Glucose 75, Total Bilirubin 0.4, AST 31, ALT 11 L, Alkaline Phosphatase 89 Assessment and Plan - Problems (Diagnosis) (1) ESRD (end stage renal disease) on dialysis Current Visit: Yes Status: Chronic (2) Diabetes mellitus Current Visit: Yes Status: Chronic Qualifiers: Diabetes mellitus type: type 2 Diabetes mellitus group home insulin use: without group home use Diabetes mellitus complication status: with kidney complications Diabetes mellitus complication detail: with chronic kidney disease Chronic kidney disease stage: on chronic dialysis Qualified Code(s): E11.22 - Type 2 diabetes mellitus with diabetic chronic kidney disease; N18.6 - End stage renal disease; Z99.2 - Dependence on renal dialysis (3) CHF (congestive heart failure) Current Visit: Yes Status: Chronic Qualifiers: Heart failure type: unspecified Heart failure chronicity: unspecified Qualified Code(s): I50.9 - Heart failure, unspecified (4) HTN (hypertension) Current Visit: Yes Status: Chronic Qualifiers: Hypertension type: essential hypertension Qualified Code(s): I10 - Essential (primary) hypertension (5) Hyperkalemia Current Visit: Yes Status: Acute (6) Anemia in chronic kidney disease (CKD) Current Visit: Yes Status: Chronic Qualifiers: Chronic kidney disease stage: on chronic dialysis Qualified Code(s): N18.6 - End stage renal disease; D63.1 - Anemia in chronic kidney disease; Z99.2 - Dependence on renal dialysis - Plan -nephrology consulted, dialysis in the morning -Lasix 120mg IV x1 given in the ER -Labetalol 10mg IV PRN for SBP >170 -reconcile and restart home blood pressure medications -BiPAP PRN if increased O2 needs -albuterol given for hyperkalemia, dialysis in the morning -mild sliding scale and accuchecks, A1c pending -AoCD stable Discharge Plan: Home Plan to discharge in: 48 Hours - Advance Directives Does patient have a Living Will: No Does patient have a Durable POA for Healthcare: No - Code Status/Comfort Care Code Status Assessed: Yes (chago goodman) Critical Care: No Time Spent Managing Pts Care (In Minutes): 70
[2021-01-02] MEDS ORDERED: CODEINE 30MG/APAP 300MG TAB PO ONE (04:45)
[2021-01-02 05:59] LABS: Absolute Lymphocytes (CBC) 0.4 K/uL (0.7-4.9); Basophils % 0.2 % (0-1.3); Hematocrit 23.4 % (39.6-49.0); Lymphocytes % 5.6 % (15.3-44.8); MPV 8.6 fL (7.6-11.3)
[2021-01-02 06:16] LABS: Albumin 2.8 g/dL (3.4-5.0); Bilirubin Total 0.3 mg/dL (0.2-1.0); Magnesium 3.4 mg/dL (1.8-2.4); Phosphorus 5.6 mg/dL (2.5-4.9); Protein, Total 6.4 g/dL (6.4-8.2)
[2021-01-02 06:17] LABS: Potassium 6.5 mmol/L (3.5-5.1)
[2021-01-02] MEDS: INSULIN -REGULAR HUMAN 50 UNIT/0.5 ML ML SQ SCH ×2 (07:30→11:30)
[2021-01-02] MEDS ORDERED: Oxycodone HCl/Acetaminophen 1 TAB TAB PO PRN (09:14)
[2021-01-02 09:28] LABS: White Blood Cell Scan OK (OK)
[2021-01-02 09:29] LABS: Blood Morphology Comment NOT SEEN (NOT SEEN); Platelet Estimate ADEQ
[2021-01-02] MEDS ORDERED: CODEINE 30MG/APAP 300MG TAB PO PRN (11:34)
[2021-01-02] MEDS ORDERED: DIAZEPAM 10 MG PO PRN (11:34)
[2021-01-02] MEDS ORDERED: HOME MED 1 EA UNK (Hydralazine Hcl [Hydralazine Hcl] 100 MG Tablet) PO SCH (11:45)
--- NOTE | 2021-01-02 11:47 | P.DS ---
Admission Date: 01/01/21 Discharge Date: 01/02/21 Discharge Condition: FAIR Reason for Admission: ESRD, missed dialysis - Problems (1) Hyperkalemia Current Visit: Yes Status: Acute (2) Anemia in chronic kidney disease (CKD) Current Visit: Yes Status: Chronic Qualifiers: Chronic kidney disease stage: on chronic dialysis Qualified Code(s): N18.6 - End stage renal disease; D63.1 - Anemia in chronic kidney disease; Z99.2 - Dependence on renal dialysis (3) CHF (congestive heart failure) Current Visit: Yes Status: Chronic Qualifiers: Heart failure type: unspecified Heart failure chronicity: unspecified Qualified Code(s): I50.9 - Heart failure, unspecified (4) Diabetes mellitus Current Visit: Yes Status: Chronic Qualifiers: Diabetes mellitus type: type 2 Diabetes mellitus nursing home insulin use: without nursing home use Diabetes mellitus complication status: with kidney complications Diabetes mellitus complication detail: with chronic kidney disease Chronic kidney disease stage: on chronic dialysis Qualified Code(s): E11.22 - Type 2 diabetes mellitus with diabetic chronic kidney disease; N18.6 - End stage renal disease; Z99.2 - Dependence on renal dialysis (5) ESRD (end stage renal disease) on dialysis Current Visit: Yes Status: Chronic (6) HTN (hypertension) Current Visit: Yes Status: Chronic Qualifiers: Hypertension type: essential hypertension Qualified Code(s): I10 - Essential (primary) hypertension Brief History of Present Illness: Reason for admission: ESRD, missed dialysis History of Present Illness: Mr. Cagle is a 60 yo male with ESRD on HD, CHF, DM, HTN here today because he missed several days of dialysis. He says he thought he had a stomach bug and could not go to dialysis because he had a fever. He reports fatigue, malaise and lower back pain. He denies night sweats, chills, nausea vomiting, headache. He normally receives dialysis by [facility]. CXR shows mild pulmonary edema. H/H 8.7/26.5. Plt 144. Na 133. K 5.9. BUN 57. Cr 11.6. GFR 5. BNP 25110. Hospital Course: Patient with history of ESRD on hemodialysis admitted for missed dialysis last HD session yesterday, shortness of breath with hyperkalemia potassium elevated to 6.5 this a.m.. He underwent dialysis with low-potassium bath. His blood pressure was also elevated but improving with 4 L ultrafiltration. Patient is doing well now he complain of multiple joint pain which is chronic requesting his pain medication. His shortness of breath has improved. He was initially required BiPAP is weaned down to room air now. Need for compliance with dialysis has been discussed with patient. Patient will be discharged home today. To continue his regular dialysis MWF. Vital Signs/Physical Exam: Temp Pulse Resp BP Pulse Ox 98.6 F 71 20 179/96 H 95 01/02/21 08:00 01/02/21 08:00 01/02/21 11:18 01/02/21 08:00 01/02/21 11:18 General: Alert, In no apparent distress, Oriented x3, Cooperative, Obese HEENT: Atraumatic, Normocephalic, PERRLA Neck: Supple, 2+ carotid pulse no bruit, JVD not distended Respiratory: Normal air movement, Crackles/rales Cardiovascular: Regular rate/rhythm, Normal S1 S2, Edema Capillary refill: <2 Seconds Gastrointestinal: Normal bowel sounds, Soft and benign, Non-distended, No rebound, No guarding Musculoskeletal: No clubbing, No swelling Integumentary: No rashes, No breakdown Neurological: Normal gait, Normal strength at 5/5 x4 extr, Cranial nerves 3-12 intact Urinary: Dialysis catheter Laboratory Data at Discharge: WBC 7.60 K/uL (4.3-10.9) 01/02/21 05:02 Hgb 7.7 g/dL (13.6-17.9) L* 01/02/21 05:02 Hct 23.4 % (39.6-49.0) L 01/02/21 05:02 Plt Count 122 K/uL (152-406) L 01/02/21 05:02 PT 11.3 SECONDS (9.5-12.5) 01/01/21 13:40 INR 0.98 01/01/21 13:40 APTT 31.6 SECONDS (24.3-36.9) 01/01/21 13:40 Sodium 130 mmol/L (136-145) L 01/02/21 05:02 Potassium 6.5 mmol/L (3.5-5.1) H* 01/02/21 05:02 BUN 74 mg/dL (7-18) H 01/02/21 05:02 Creatinine 12.60 mg/dL (0.55-1.3) H* D 01/02/21 05:02 Glucose 125 mg/dL (74-106) H 01/02/21 05:02 Phosphorus 5.6 mg/dL (2.5-4.9) H 01/02/21 05:02 Magnesium 3.4 mg/dL (1.8-2.4) H D 01/02/21 05:02 Total Bilirubin 0.3 mg/dL (0.2-1.0) 01/02/21 05:02 AST 20 U/L (15-37) 01/02/21 05:02 ALT 7 U/L (12-78) L 01/02/21 05:02 Alkaline Phosphatase 78 U/L (45-117) 01/02/21 05:02 Home Medications: Amlodipine Besylate/Benazepril [Amlodipine-Benazepril 10-20 mg] 1 tab PO TID 11/27/20 Calcium Acetate [Phoslo] 2 cap PO BID 11/27/20 Calcium Acetate [Phoslo] 6 cap PO TIDWM 11/27/20 Codeine/APAP [Tylenol #3*] 1 tab PO QID PRN 11/27/20 Ferric Citrate [Auryxia] 1 tab PO BID 11/27/20 Ferric Citrate [Auryxia] 2 tab PO TIDWM 11/27/20 Folic Acid/Vit B Complex and C [Fauzia-Conor Tablet] 1 tab PO DAILY 11/27/20 Furosemide [Lasix] 80 mg PO BID 11/27/20 Tamsulosin [Flomax*] 1 cap PO BEDTIME 11/27/20 diazePAM [Diazepam] 10 mg PO BID PRN 11/27/20 Hydralazine HCl 100 mg PO Q8H 30 Days #90 tablet 11/30/20 carvediloL [Coreg*] 25 mg PO BID 30 Days #60 tab 11/30/20 Diet: Renal Activity: Ad adina Followup: Toya Andrew DO, DO [Primary Care Provider] - Time spent managing pt's care (in minutes): 35
[2021-01-02] MEDS ORDERED: FERRIC CITRATE 210 MG PO SCH ×2 (12:00→21:00)
[2021-01-02] MEDS ORDERED: CALCIUM ACETATE 667 MG TAB PO SCH ×3 (12:00→21:00)
[2021-01-02 12:30] VITALS: BP 189/104; TEMP 98.7
[2021-01-02] MEDS ORDERED: carvediloL 6.25 MG TAB PO SCH (21:00)
[2021-01-02] MEDS ORDERED: HOME MED 1 EA UNK (Furosemide [Lasix] 80 MG Tablet) PO SCH (21:00)
[2021-01-02] MEDS ORDERED: TAMSULOSIN 0.4 MG SR CAP PO SCH (21:00)
--- NOTE | 2021-01-02 22:36 | CON ---
Date of Consultation: 01/02/2021 Chief Complaint: End-stage renal disease, hyperazotemia, fluid overload, congestive heart failure. The patient is admitted for dialysis to control fluid overload and provide metabolic clearance with d ialysis. The patient is dialysis dependent. History Of Present Illness: The patient is a 60-year-old man with end-stage renal disease, on dialys is 3 times per week. He needs several days of treatment and came to the hospital because of generali zed weakness. He was complaining of lower extremity pain and back pain. He denies fever or chills, although he complains of fatigue, malaise, lower back pain, and night sweats and chills. He denied v omiting or headache. Chest x-ray showed pulmonary edema, congestive heart failure with interstitial pulmonary edema secondary to fluid overload. The patient has history of diabetes mellitus and diabet ic kidney disease. Creatinine was up to 11.6, BUN 57, potassium 5.9, and sodium 133. The patient wa s found to have BNP up to 42,620. Urgent dialysis was scheduled with 2 potassium dialysate to treat hyperkalemia, fluid overload, and provide metabolic clearance. Review of Systems: Constitutional: The patient denies syncope. Eyes: Denies vision changes. Ears, Nose, Mouth, and Throat: Denies sore throat or earache. Respiratory: He has shortness of breath with activities. Denies wheezing. Cardiovascular: Denies chest pain, palpitation, or syncope. GI: Denies nausea or vomiting. : Denies dysuria or hematuria. All other systems reviewed and all are negative. Past Medical History: End-stage renal disease, hypertension, peritoneal dialysis catheter placement, shoulder surgery, degenerative disk disease, peripheral neuropathy, anemia, CKD, renal osteodystroph y. Social History: Denies tobacco, alcohol, or illicit drugs. Family History: Father had a heart disease. Physical Examination: General: The patient is awake, alert, follows commands. Eyes: Anicteric sclerae. EOMI. Ears, Nose, Mouth and Throat: Oral mucosa moist. No pallor. Neck: Supple. No bruits. Lungs: Crackles bilaterally present. Heart: S1, S2. No pericardial friction rub. Abdomen: Soft, benign, nontender. No rebound. No guarding. Extremities: Some edema present in both legs. No clubbing. No cyanosis. Neurologic: Moving all extremities. Cranial nerves intact. No tremor. Psychiatric: The patient is awake. Follows commands. Laboratory Data: WBC 7.9, hemoglobin 8.7, hematocrit 26.5, platelet count 144,000. Sodium 133, pota ssium 5.9, BUN 57, creatinine 11.6, glucose 75. Impression And Plan: 1.End-stage renal disease, hyperkalemia, fluid overload. Due to the patient's noncompliance with di alysis schedule, the patient is undergoing dialysis with urgent procedure to treat hyperkalemia and t o obtain negative fluid balance. The patient has fluid overload and congestive heart failure with pu lmonary edema. Acute on chronic congestive heart failure developed due to the patient's noncomplianc e and needs dialysis. 2.Hypertension. Continue blood pressure medication. Blood pressure is elevated due to hypervolemia . Resume blood pressure medications. Encourage compliance with diet and medication as well as sched ule with dialysis 3 times per week. 3.Hyperkalemia. The patient is undergoing dialysis with 2 potassium dialysate. 4.Fluid overload. The patient received Lasix 120 IV one time in the emergency room. Continue p.o. fluid restriction, low-sodium diet, and encourage compliance with dialysis schedule. 5.Shortness of breath and pulmonary edema. The patient was started on BiPAP and O2 was adjusted for current requirement. Plan is to wean the patient off oxygen if poss ible after dialysis. EB/MODL Voice ID: [id number] Report ID: [id number]
[2021-01-03] MEDS ORDERED: HOME MED 1 EA UNK (Folic Acid/Vit B Complex And C [Rena-Vite Tablet] 0.8 MG Tablet) PO SCH (09:00)
== END 2021-01-02 14:22 | disposition home or self-care (01) | DRG 291 ==
LOC: ER 12:30 → ERHOLD 18:43 → 2ND 20:14
PROVIDERS: ADMIT Internal Medicine Nephrology; ATTEND Internal Medicine
PROC: 5A09357 Assistance with Respiratory Ventilation, Less than 24 Consecutive Hours, Continuous Positive Airway Pressure (ICD-10-PCS; principal; 2021-01-01)
PROC: 5A1D70Z Performance of Urinary Filtration, Intermittent, Less than 6 Hours Per Day (ICD-10-PCS; 2021-01-01)
DX: I13.2 Hypertensive heart and chronic kidney disease with heart failure and with stage 5 chronic kidney disease, or end stage renal disease (principal); N18.6 End stage renal disease; I50.43 Acute on chronic combined systolic (congestive) and diastolic (congestive) heart failure; E11.22 Type 2 diabetes mellitus with diabetic chronic kidney disease; D63.1 Anemia in chronic kidney disease; E87.5 Hyperkalemia; E66.9 Obesity, unspecified; Z68.33 Body mass index [BMI] 33.0-33.9, adult; Z99.2 Dependence on renal dialysis; Z91.15 Patient's noncompliance with renal dialysis; Z79.899 Other long term (current) drug therapy; Z95.828 Presence of other vascular implants and grafts; Z20.822 Contact with and (suspected) exposure to COVID-19
CPT/HCPCS: 0240U; 36415; 71045; 80048; 80053; 80076; 82550; 82553; 82728; 82805; 82947; 83605; 83735; 83880; 84100; 84145; 84484; 85025; 85610; 85730; 86140; 87040; 90935; 93005; 94760; 96365; 96368; 96375; 99285; J0696; J1644; J1940; J2930; J3010

== ENCOUNTER 2021-05-18 00:33 | Emergency (ER) | payer OTHER ==
--- OUTSIDE RECORDS SUMMARY | 2021-05-18 00:57 | XMS REPORT | Continuity of Care Document ---
:1960 Author Organization [facility] t Address [address] [place] [address] Rodriguez [address] [place] [id number] Care Team Providers Name Role Phone Desirae CRUZ Attending Clinician Brien ALBA Attending Clinician Bulmaro Hong Attending Clinician Hugo Attending Clinician Edward Payne Attending Clinician Glenroy Choi Attending Clinician Manolo Faulkner Attending Clinician Josué Attending Clinician Lillie Attending Clinician Charles Attending Clinician Javier Cha Attending Clinician Elidia Aldrich Attending Clinician Nasrin Dexter Attending Clinician Burak Attending Clinician Jesus Hector Jr Attending Clinician Brien ABLA Admitting Clinician Bulmaro Hong Admitting Clinician Josué Admitting Clinician Lillie Admitting Clinician Charles Admitting Clinician Javier Cha Admitting Clinician Nasrin Dexter Admitting Clinician Burak Admitting Clinician Problems Condition Condition Condition Status Onset Resolution Last Treating Co mments Source Name Details Category Date Date Treatment Clinician Date ESRD Diagnosis Active 2019-102020-08-12 Mem oria NEEDING 0- 08:39:00 l DIALYSIS, ESRD 00:00: [place] VOLUME NEEDING 00 OVERLOAD DIALYSIS, VOLUME OVERLOAD Active 08/06/2020 [facility] [address] [address] SENT - Diagnosis Active 2019-102020-08-06 Memoria FLUID 0-29 16:50:[address] SENT 00:00: Mer[place] nn - FLUID 00 OVERLOAD Active 08/06/2020 [facility] [place] DIALYSIS Diagnosis Active 2019-102020-07-24 M emoria ISSUE 0 08:37:00 l DIALYSIS 00:00: Rafael n ISSUE 00 Active 07/24/2020 [facility] [place] PERITONITI Diagnosis Active 2020-07-09 Memoria S, 07-06 16:32:00 l DIABETES, 00:00: [place] ESRD ON PERITONITI 00 DIALYSIS S, DIABETES, ESRD ON DIALYSIS Active 07/06/2020 [facility] [place] ABD PAIN Diagnosis Active 2020-07-06 M emoria 07-06 07:06:00 l ABD PAIN 00:00: Rafael n 00 Active 07/06/2020 [facility] [place] WEAKNESS Diagnosis Active 2020-08-04 M emoria AND 05-21 11:45:00 l SWELLING WEAKNESS 00:00: Herm hannah AND 00 SWELLING Active 05/21/2020 [facility] [place] NAUSEA/VOM Diagnosis Active 2020-03-23 Memoria ITING 615 01:05:00 l 00:00: [place] NAUSEA/VOM 00 ITING Active 03/23/2020 [facility] [place] FEVER Diagnosis Active 2020-02-26 Mem oria 02-02 11:06:00 l FEVER 00:00: [place] 00 Active 02/03/2020 [facility] [place] AMS, Diagnosis Active 2019-10-31 Mem oria HYPONATREM 1-20 11:04:00 l IA AMS, 00:00: [place] HYPONATREM 00 IA Active 0 [facility] [place] NUMBNESS Diagnosis Active 2019-10-28 M emoria 1-20 20:30:00 l NUMBNESS 00:00: Rafael n 00 Active 10/28/2019 [facility] [place] AMS Diagnosis Active 2018-102019-09-23 Mem oria 1 21:56:00 l AMS 10:52: [place] 00 Active 08/14/2019 [facility] [place] PNA Diagnosis Active 2019-04-05 Mem oria 04-05 20:15:00 l PNA 00:00: [place] 00 Active 04/05/2019 [facility] [place] DIZZINES, Diagnosis Active 2019-04-15 Memoria PNEUMONIA, 04-05 21:55:00 l END STAGE 00:00: [place] RENAL DIS DIZZINES, 00 PNEUMONIA, END STAGE RENAL DIS Active 04/05/2019 [facility] [place] ESRD Diagnosis Active 2017-102018-12-14 Mem oria NEEDING 0-13 09:50:00 l DIALYSIS, ESRD 00:00: [place] ACUTE NEEDING 00 PULMONARY DIALYSIS, E ACUTE PULMONARY E Active 07/21/[address] Diagnosis Active 2017-102018-07-21 [facility] oria REFERRAL 0-13 21:30:00 l 00:00: [place] REFERRAL 00 Active 07/21/[address] Diagnosis Active 2017-102018-07-20 [facility] oria REFFERAL 0-12 20:08:00 l 00:00: [place] REFFERAL 00 Active 07/20/2018 [facility] [place] RENAL/DO Diagnosis Active 2018-07-31 M emoria NOT USE 05-23 12:39:00 l FOR RENAL/DO 06:00: Rafael n CHARGES NOT USE 00 F/C NOTES FOR O CHARGES F/C NOTES O Active 05/23/2018 [facility] NEW Diagnosis Active 2018-05-23 Mem oria EVALUATION 05-09 10:28:00 l NEW 00:00: [place] EVALUATION 00 Active 05/09/2018 [facility] HYPERTENSI Diagnosis Active 2018-04-16 Memoria VE 04-14 13:14:00 l URGENCY, 08:00: [place] CHEST PAIN HYPERTENSI 00 VE URGENCY, CHEST PAIN Active 04/14/2018 [facility] CHEST PAIN Diagnosis Active 2018-04-15 Memoria 04-14 01:42:00 l CHEST 08:00: [place] PAIN 00 Active 04/14/2018 [facility] [place] ACUTE Diagnosis Active 2018-03-19 Mem oria DYSPNEA 03-16 13:39:00 l ACUTE 00:00: [place] DYSPNEA 00 Active 03/16/2018 [facility] [place] WEAKNESS Diagnosis Active 2018-03-17 M emoria 03-16 05:41:00 l WEAKNESS 00:00: Rafael n 00 Active 03/16/2018 [facility] [place] IN NEED OF Diagnosis Active 2018-01-22 Memoria DIALYSIS 01-22 18:51:00 l IN NEED 00:00: [place] OF 00 DIALYSIS Active 01/22/2018 [facility] [place] SOB Diagnosis Active 2017-12-15 Mem oria 12-15 07:37:00 l SOB 00:00: [place] 00 Active 12/15/2017 [facility] [place] ACUTE Diagnosis Active 2017-12-15 Mem oria RENAL 12-15 10:05:00 l FAILURE, ACUTE 00:00: [place] FLUID RENAL 00 OVERLOAD, FAILURE, CHF FLUID OVERLOAD, CHF Active 12/15/2017 [facility] [place] SINGLE Diagnosis Active 2020-08-09 Mem oria LIVEBORN 07:58:00 l , SINGLE [place] DELIVERED LIVEBORN VAGINA INFANT, DELIVERED VAGINA Active [facility] [place] PNEUMONIA, Diagnosis Active 2019-04-15 Memoria UNSPECIFIE 21:55:00 l D ORGANISM Rafael n PNEUMONIA, UNSPECIFIE D ORGANISM Active [facility] DIZZINESS Diagnosis Active 2019-04-15 Memoria AND 21:55:00 l GIDDINESS [place] DIZZINESS AND GIDDINESS Active [facility] [place] DYSPNEA, Diagnosis Active 2018-03-19 M emoria UNSPECIFIE 13:39:00 l D DYSPNEA, [place] n UNSPECIFIE D Active [facility] [place] ACUTE Diagnosis Active 2017-12-15 Mem oria KIDNEY 10:05:00 l FAILURE, ACUTE [place] UNSPECIFIE KIDNEY D FAILURE, UNSPECIFIE D Active [facility] [place] HEART Diagnosis Active 2017-12-15 Mem oria FAILURE, 10:05:00 l UNSPECIFIE HEART [place] nn D FAILURE, UNSPECIFIE D Active [facility] [place] ACUTE Diagnosis Active 2018-12-14 Mem oria PULMONARY 09:50:00 l EDEMA ACUTE [place] PULMONARY EDEMA Active [facility] End stage Problem 2020-08-14 Me moria renal 23:33:32 l disease End [place] stage renal disease 08/14/2020 [facility] Type 2 Problem 2019-02-10 Memor ia diabetes 12:48:45 l mellitus Type 2 Rafael n with diabetes diabetic mellitus chronic with kidney diabetic disease chronic kidney disease 02/10/2019 [facility] Hypertensi Problem 2019-02-10 emoria ve chronic 12:48:45 l kidney [place] disease Hypertensi with stage ve chronic 5 chronic kidney kidney disease disease or with stage end stage 5 chronic renal kidney disease disease or end stage renal disease 02/10/2019 [facility] Dependence Problem 2019-02-10 M emoria on renal 12:48:45 l dialysis [place] Dependence on renal dialysis 02/10/2019 [facility] Anxiety Problem 2019-02-06 Kojo lynn disorder, 14:42:13 l unspecifie Anxiety Her meeks d disorder, unspecifie d 02/06/2019 [facility] Sleep Problem 2019-02-10 Memor ia apnea, 12:48:45 l unspecifie Sleep [place] nn d apnea, unspecifie d 02/10/2019 [facility] Other long Problem 2019-02-06 M emoria term 14:42:13 l (current) Other [place] n drug senior living therapy (current) drug therapy 02/06/2019 [facility] Pericardia Problem 2019-02-10 M emoria l effusion 12:48:45 l (noninflam Rafael n matory) Pericardia l effusion (noninflam matory) 02/10/2019 [facility] Nausea Problem 2019-02-06 Memor ia 14:42:13 l Nausea [place] 02/06/2019 [facility] Other Problem 2019-02-06 Memor ia symptoms 14:42:13 l and signs Other Rafael n concerning symptoms food and and signs fluid concerning intake food and fluid intake 02/06/2019 [facility] Pneumonia, Problem 2019-04-10 M emoria unspecifie 22:02:39 l d organism Rafael n Pneumonia, unspecifie d organism 04/10/2019 [facility] Altered Problem 2019-11-07 Kojo lynn mental 23:47:53 l status, Altered [place] n unspecifie mental d status, unspecifie d 11/07/2019 [facility] Acute Problem 2019-02-10 Memor ia pulmonary 12:48:45 l edema Acute [place] pulmonary edema 02/10/2019 [facility] [...] Me moria index 12:48:45 l (BMI) Body [place] 33.0-33.9, mass index adult (BMI) 33.0-33.9, adult 02/10/2019 [facility] Chronic Problem 2019-02-10 Kojo lynn obstructiv 12:48:45 l e Chronic [place] pulmonary obstructiv disease, e unspecifie pulmonary d disease, unspecifie d 02/10/2019 [facility] Dyspnea, Problem 2018-03-23 Mem oria unspecifie 01:53:56 l d Dyspnea, Rafael n unspecifie d 03/23/2018 [facility] Single Problem 2020-08-10 Memor ia liveborn 09:04:08 l , Single [place] delivered liveborn vaginally infant, delivered vaginally 08/10/2020 [facility] Hypocalcem Problem 2018-03-28 M emoria ia 12:58:31 l [place] Hypocalcem ia 03/28/2018 [facility] Other Problem 2018-03-28 Memor ia disorders 12:58:31 l of Other [place] phosphorus disorders metabolism of phosphorus metabolism 03/28/2018 [facility] Hypo-osmol Problem 2018-03-28 M emoria ality and 12:58:31 l hyponatrem Rafael n ia Hypo-osmol ality and hyponatrem ia 03/28/2018 [facility] Iron Problem 2018-03-28 Memor ia deficiency 12:58:31 l anemia, Iron [place] unspecifie deficiency d anemia, unspecifie d 03/28/2018 [facility] Anemia in Problem 2018-03-28 [place] mor[place] other 12:58:31 l chronic Anemia [place] diseases in other classified chronic elsewhere diseases classified elsewhere 03/28/2018 [facility] Atheroscle Problem 2018-03-28 emoria rosis of 12:58:31 l renal Mralo artery Atheroscle rosis of renal artery 03/28/2018 [facility] Obstructiv Problem 2018-03-28 emoria e sleep 12:58:31 l apnea [place] (adult) Obstructiv (pediatric e sleep ) apnea (adult) (pediatric ) 03/28/2018 [facility] Anxiety Problem Resolve 2020-08-14 Mem oria (finding) d 23:33:32 l Anxiety [place] (finding) Resolved Problem 08/14/2020 [facility] Diabetes Problem Resolve 2020-08-14 [place] mor[place] mellitus d 23:33:32 l (disorder) Diabetes He rmann mellitus (disorder) Resolved Problem 08/14/2020 [facility] Hypertensi Problem Resolve 2020-08-14 Memoria ve d 23:33:32 l disorder, [place] systemic Hypertensi arterial ve (disorder) disorder, systemic arterial (disorder) Resolved Problem 08/14/2020 [facility] Sleep Problem Resolve 2020-08-14 Kojo lynn apnea d 23:33:32 l (finding) Sleep Rafael n apnea (finding) Resolved Problem 08/14/2020 [facility] End stage Problem Active 2020-08-14 Me moria renal 23:33:32 l failure on End Rafael n dialysis stage (disorder) renal failure on dialysis (disorder) Active Problem 08/14/2020 [facility] Pericardia Problem Active 2020-08-14 M emoria l effusion 23:33:32 l (disorder) [place] n Pericardia l effusion (disorder) Active Problem 08/14/2020 [facility] Simple Problem Active 2020-08-14 Memor ia obesity 23:33:32 l (disorder) Simple Herm hannah obesity (disorder) Active Problem 08/14/2020 [facility] ALTERED Diagnosis Active 2019-10-31 Me moria MENTAL 11:04:00 l STATUS, ALTERED Rafael n UNSPECIFIE MENTAL D STATUS, UNSPECIFIE D Active [facility] [place] PERITONITI Diagnosis Active 2020-07-09 Memoria S, 16:32:00 l UNSPECIFIE Rafael n D PERITONITI S, UNSPECIFIE D Active [facility] [place] HYPO-OSMOL Diagnosis Active 2019-10-31 Memoria ALITY AND 11:04:00 l HYPONATREM Rafael n IA HYPO-OSMOL ALITY AND HYPONATREM IA Active [facility] [place] TYPE 2 Diagnosis Active 2020-07-09 Mem oria DIABETES 16:32:00 l MELLITUS TYPE 2 Rafael n WITHOUT DIABETES COMPLIC MELLITUS WITHOUT COMPLIC Active [facility] [place] END STAGE Diagnosis Active 2020-08-12 Memoria RENAL 08:39:00 l DISEASE END [place] STAGE RENAL DISEASE Active [facility] [place] FLUID Diagnosis Active 2020-08-12 Mem oria OVERLOAD, 08:39:00 l UNSPECIFIE FLUID [place] nn D OVERLOAD, UNSPECIFIE D Active [facility] History of Past Illness Condition Condition Condition Status Onset Resolution Last Treating Co mments Source Name Details Category Date Date Treatment Clinician Date Localized Problem 2019-2020-07-26 2020-07-26 Memoria edema 0-16 21:30:35 21:30:35 l 17:00: [place] Localized 00 edema 07/24/2020 07/26/2020 [facility] Hypokalemi Problem 2019-102020-07-26 2020-07-26 Memoria a 0-16 21:30:35 21:30:35 l 17:00: [place] Hypokalemi 00 a 07/24/2020 07/26/2020 [facility] Type 2 Problem 2020-07-17 2020-07-17 M emoria diabetes 07-06 22:26:03 22:26:03 l mellitus Type 2 17:00: Rafael n without diabetes 00 complicati mellitus ons without complicati ons 07/06/2020 07/17/2020 [facility] Anemia, Problem 2020-05-23 2020-05-23 Memoria unspecifie 8-13 21:26:40 21:26:40 l d Anemia, 17:00: [place] unspecifie 00 d 05/21/2020 05/23/2020 [facility] Constipati Problem 2020-05-23 2020-05-23 Memoria on, 05-21 21:26:40 21:26:40 l unspecifie 17:00: Rafael cee d Constipati 00 on, unspecifie d 05/21/2020 05/23/2020 [facility] Pain in Problem 2020-02-05 2020-02-05 Memoria right hip 02-02 21:56:20 21:56:20 l Pain in 17:00: [place] right hip 00 02/03/2020 02/05/2020 [facility] Fever, Problem 2020-02-05 2020-02-05 M emoria unspecifie 02-02 21:56:20 21:56:20 l d Fever, 17:00: [place] unspecifie 00 d 02/03/2020 02/05/2020 [facility] Unspecifie Problem 2020-02-05 2020-02-05 Memoria d fall, 02-02 21:56:20 21:56:20 l initial 17:00: [place] encounter Unspecifie 00 d fall, initial encounter 02/03/2020 02/05/2020 [facility] Other Problem 2017-102019-02-10 2019-02-10 M emoria specified 12:48:45 12:48:45 l complicati Other 04:09: [place] nn on of specified 04 vascular complicati prosthetic on of devices, vascular implants prosthetic and devices, grafts, implants initial and encounter grafts, initial encounter 07/31/2018 02/10/2019 [facility] Hyperkalem Problem 2017-2019-02-06 2019-02-06 Memoria ia 0-12 14:42:13 14:42:13 l 05:00: [place] Hyperkalem 00 ia 07/20/2018 02/06/2019 [facility] Unspecifie Problem 2017-102019-02-06 2019-02-06 Memoria d 0-12 14:42:13 14:42:13 l complicati 05:00: Rafael cee on of Unspecifie 00 internal d prosthetic complicati device, on of implant internal and graft, prosthetic initial device, encounter implant and graft, initial encounter 07/20/2018 02/06/2019 [facility] Hypertensi Problem 2017-0 2018-03-28 2018-03-28 Memoria ve heart - 12:58:31 12:58:31 l disease 03:49: [place] with heart Hypertensi 05 failure ve heart disease with heart failure 12/28/2017 03/28/2018 [facility] Chronic Problem 2017-2018-01-25 2018-01-25 Memoria kidney 4-16 04:46:18 04:46:18 l disease, Chronic 05:00: [place] nn unspecifie kidney 00 d disease, unspecifie d 01/22/2018 01/25/2018 [facility] Allergies, Adverse Reactions, Alerts This patient has no known allergies or adverse reactions. Social History Social Habit Start Date Stop Date Quantity Comments Source Social History 2019-08-15 2019-08-15 [facility] 14:23:20 14:23:20 Medications Ordered Filled Start Stop Current Ordering Indication Dosage Frequency Signature Comments Components Source Medication Medication Date Date Medication? Clinician (SIG) Name Name fentaNYL 2019-10 No Route: IV, Mem oria (ANES) 10-12 Drug form: l 18:10: INJ, ONCE, [place] 00 Stop date: 08/12/20 12:10:00 TRIMMER MACHINE OPERATOR lidocaine 2019-10 No Route: IV, Me moria (ANES) 10-12 Drug form: l 18:10: INJ, ONCE, Stop date: 08/12/20 12:10:00 TRIMMER MACHINE OPERATOR propofol 2019-10 No Route: IV, Mem oria (ANES) 10-12 Drug form: l 18:10: INJ, ONCE, [place] Stop date: 08/12/20 12:10:00 TRIMMER MACHINE OPERATOR ondansetron 2019-10 No Route: IV, Memoria (ANES) 10-12 Drug form: l 18:10: INJ, ONCE, [place] Stop date: 08/12/20 12:10:00 TRIMMER MACHINE OPERATOR metoclopram 2019-10 No Route: IV, Memoria jeanna (ANES) 10-12 Drug form: l 18:10: INJ, ONCE, [place] Stop date: 08/12/20 12:10:00 TRIMMER MACHINE OPERATOR ceFAZolin 2019-10 No Route: IV, Me moria (ANES) - Drug form: l 17:50: INJ, ONCE, [place] 00 Stop date: 08/12/20 11:50:00 TRIMMER MACHINE OPERATOR Sodium 2019- No Route: IV, Memor ia Chloride 1-04 Total l 0.9% IV 17:14: Volume: [place] (ANES) 500 00 500, Start mL date: 08/12/20 11:14:00 TRIMMER MACHINE OPERATOR, Stop date: 08/12/20 12:14:00 TRIMMER MACHINE OPERATOR Sodium 2019- No 500 mL, Memoria Chloride 1- Rate: 75 l 0.9% IV 500 16:52: ml/hr, Herm hannah mL 00 Infuse over: 6.7 hr, Route: IV, Dosing Weight 111.182 kg, Total Volume: 500, Start date: 08/12/20 10:52:00 TRIMMER MACHINE OPERATOR, Duration: 1 doses or times, Stop date: 08/12/20 17:33:00 TRIMMER MACHINE OPERATOR, 2.32, m2, 0 Potassium 2019- No Notes: Memori a Chloride - (Same as: l 13:46: K-Dur ) [place] 00 "Do Not Crush" Give with food and full glass of water For patients unable to swallow tablet, dissolve in one half glass of water. Allow about 2 minutes for the tablets to disintegra te. Stir before giving to prepare slurry and administer . Please exclude Patient s with feeding tube less than 14 [place] (Dobhoff, J-tube etc) and pediatric and patients. Hydralazine 2019-10 No 10 mg, Kojo lynn 1-03 Route: l 21:11: IVP, Q4H, [place] Dosing Weight 111.182, kg, PRN Hypertensi on, Start date: 08/11/20 15:11:00 TRIMMER MACHINE OPERATOR, Duration: 30 day, Stop date: 09/10/20 15:10:00 TRIMMER MACHINE OPERATOR Potassium 2019- No Notes: Memori a Chloride -03 (Same as: l 14:12: K-Dur 20) [place] "Do Not Crush" Give with food and full glass of water For patients unable to swallow tablet, dissolve in one half glass of water. Allow about 2 minutes for the tablets to disintegra te. Stir before giving to prepare slurry and administer . Please exclude Patient s with feeding tube less than 14 [place] (Dobhoff, J-tube etc) and pediatric and patients. epoetin 2019-10 No Notes: Memoria franca 10-10 (Same as: l 15:00: Procrit) epoetin franca 2000 unit/1 ml VL Non-formul heydi For dialysis use only (Epogen) WASTE: F/P - Red; E -Red MEDICATION WASTE Product Size: 2000 mg Product Wasted: ___ mg Ambien 2019-10 No Notes: Memoria - (Same As: l 04:24: Ambien) [place] Melatonin 3 2019-10 No Notes: Kojo lynn MG Extended 10-10 (Same as: l Release 03:57: Melatonin) Herm hannah Tablet 00 Ambien 2019-10 No PO, Memoria 10-10 Bedtime, 0 l 02:55: Refill(s) [place] 00 Zolpidem 2019-10 Yes 10 mg = 1 Kojo lynn tartrate 10 10-10 tab, PO, l MG Oral 02:55: Bedtime, Rafael n Tablet 00 PRN for [Ambien] sleep, 0 Refill(s) heparin 2019-10 No 10,000 Memoria 1-01 unit, 10 l 15:10: mL, Route: [place] 00 DIALYSIS, Drug form: INJ, ONCALL, Dosing Weight 111.182, kg, PRN Dialysis, Priority: STAT, Start date: 08/09/20 9:10:00 TRIMMER MACHINE OPERATOR, Duration: 1 doses or times, Stop date: Limited # of times, 0 tramadol 2019-10 No Notes: Not Mem oria hydrochlori 10-09 to exceed l de 50 MG 05:16: 400mg/day. Her meeks Oral Tablet 00 (Same As: Ultram) epoetin 2019-10 No Notes: Memoria franca 0-31 (Same as: l 14:30: Procrit) [place] 00 epoetin franca [address]7942 unit/1 ml VL. Non-formul heydi For dialysis use only. (Procrit) WASTE: F/P - Red; E -Red MEDICATION WASTE Product Size: 24311 unit Product Wasted: ___ unit Sodium 2019-10 No 250 mL, Memoria Chloride 0-31 Rate: To l 0.9% 14:13: prime line [place] (titrate) 00 and flush 250 mL remaining blood products., Dosing Weight 111.182, kg, Route: IV, Total Volume: 250, Priority: Routine, Start Date: 08/08/20 9:13:00 CDT, Duration: 1 day, Stop date: 08/09/20 9:12:00 TRIMMER MACHINE OPERATOR, Replace Every: 24 hr, 0 Amlodipine 2019-10 No 1 cap, Memor ia 10 MG / 0-31 Route: PO, l Benazepril 14:00: Drug Form: H ermann hydrochlori 00 CAP, de 20 MG Dosing Oral Weight Capsule 111.182, kg, Daily, Start date: 08/08/20 9:00:00 CDT, Duration: 30 day, Stop date: 09/06/20 9:00:00 TRIMMER MACHINE OPERATOR carvedilol 2019-10 No 12.5 mg, Mem oria 0-31 Route: PO, l 14:00: Drug form: [place] 00 TAB, Q12H, Dosing Weight 111.182, kg, Start date: 08/08/20 9:00:00 CDT, Duration: 30 day, Stop date: 09/06/20 21:00:00 TRIMMER MACHINE OPERATOR amLODIPine 2019-10 No Notes: Memor ia 0-31 (Same as: l 14:00: Norvasc) [place] 00 lisinopril 2019-10 No Notes: Memor ia 0-31 (Same as: l 14:00: Prinivil, [place] Zestril) Dilaudid 2019-10 No Notes: Memoria 0-31 Same as: l 13:46: Dilaudid Epogen 2019-10 No 11,000 Memoria 0-31 unit, l 13:01: Route: [place] 00 SUB-Q, Drug form: INJ, Q-M-W-F, Dosing Weight 111.182, kg, Priority: NOW, Start date: 08/08/20 8:01:00 CDT, Duration: 30 day, Stop date: 09/04/20 9:00:00 TRIMMER MACHINE OPERATOR Morphine 2019-10 No Notes: Memoria 0-31 (Same l 10:27: as:MORPhin [place] 00 e Sulfate) Morphine 2019-10 No Notes: Memoria 0-31 (Same l 01:44: as:MORPhin [place] 00 e Sulfate) normal 2019-10 No 2,000 mL, Memori a saline 0.9% 0-30 Rate: 100 l IV 2,000 mL 22:22: ml/hr, Herm hannah 00 Infuse over: 20 hr, Route: IV, Dosing Weight 111.182 kg, Total Volume: 2,000, Start date: 08/07/20 17:22:00 CDT, Duration: 30 day, Stop date: 09/06/20 17:21:00 TRIMMER MACHINE OPERATOR, 2.32, m2, 0 Lasix 2019-10 No 80 mg, Memoria 0-30 Route: l 13:00: IVP, Drug form: INJ, BID Diuretic, Dosing Weight 117.002, kg, Start date: 08/07/20 8:00:00 CDT, Duration: 30 day, Stop date: 09/05/20 16:00:00 TRIMMER MACHINE OPERATOR Magnesium 2019-10 No Notes: Memori a Sulfate 0-30 WASTE: F/P l 12:58: - Sink; E [place] 00 - Municipal Trash Bin Potassium 2019-10 No Notes: Memori a Chloride 0-30 (Same as: l 12:58: K-Dur 20) "Do Not Crush" Give with food and full glass of water For patients unable to swallow tablet, dissolve in one half glass of water. Allow about 2 minutes for the tablets to disintegra te. Stir before giving to prepare slurry and administer . Please exclude Patient s with feeding tube less than 14 [place] (Dobhoff, J-tube etc) and pediatric and patients. Potassium 2019-10 No Notes: Memori a Chloride 0-30 Infuse at l 11:00: a rate of [place] 00 10 mEq/hr. (Same as: KCL) normal [...] Duration: 30 day, Stop date: 09/06/20 5:36:00 TRIMMER MACHINE OPERATOR, 2.32, m2 Hydralazine 2019-10 No Notes: Kojo lynn Hydrochlori 0-30 (Same as: l de 50 MG 06:50: Apresoline Her meeks Oral Tablet ) May interfere w/enteral feedings Take With Food. Ambien 2019-10 No Notes: Memoria 0-30 (Same As: l 05:20: Ambien) [place] 00 heparin 2019-10 No Notes: Memoria 0-30 porcine l 05:00: heparin [place] 00 Lasix 2019-10 No Notes: Memoria 0-30 (Same as: l 01:32: Lasix) [place] 00 MEDICATION WASTE Product Size: 40 mg Product Wasted: ___ mg Ondansetron 2019-10 No Notes: Kojo lynn 0-30 (Same as: l 01:31: Zofran) [place] 00 MEDICATION WASTE Product Size: 4 mg Product Wasted: ___ mg Acetaminoph 2019-10 No Notes: Do M emoria en 325 MG / 0-30 not exceed l Hydrocodone 01:31: 4gm/day of [place] Bitartrate 00 acetaminop 10 MG Oral hen. Tablet (Same as: [[place] 10/325] 325/10) Acetaminoph 2019-10 No Notes: Kojo lynn en 325 MG / 0-30 (Same as: l Hydrocodone 01:31: [place] Mercedez nn Bitartrate 00 325/5) Do 5 MG Oral not exceed Tablet 4gm/day of [[place] acetaminop 5/325] hen. Dilaudid 2019-10 No 1 mg, Memoria 0-30 Route: l 01:16: IVP, ONCE, Dosing Weight 117.002, kg, Priority: STAT, Start date: 08/06/20 20:16:00 CDT, Stop date: 08/06/20 20:16:00 CDT Dextrose 2019-10 No 12.5 gm, Memor ia 50% Syringe 0-30 25 mL, l (D50W) 01:09: Route: IVP, Drug Form: INJ, Dosing Weight 117.002, kg, PRN, PRN Blood Glucose Results, Start date: 08/06/20 20:09:00 CDT, Duration: 30 day, Stop date: 09/05/20 19:08:00 TRIMMER MACHINE OPERATOR, 0 Glucagon 2020-1 No 1 mg, Memoria 0-30 Route: IM, l 01:09: Drug form: PDR/INJ, PRN, Dosing Weight 117.002, kg, PRN Blood Glucose Results, Start date: 08/06/20 20:09:00 CDT, Duration: 30 day, Stop date: 09/05/20 19:08:00 TRIMMER MACHINE OPERATOR, 0 Magnesium 2020-1 No Notes: Memori a Sulfate 0-30 WASTE: F/P l 00:44: - Sink; E - Municipal Trash Bin Potassium 2020-1 No Notes: Memori a Chloride 0-30 (Same [...] s with feeding tube less than 14 [place] (Dobhoff, J-tube etc) and pediatric and patients. Dilaudid 2019- No 1 mg, Memoria 0-29 Route: l 23:27: IVP, ONCE, Dosing Weight 117.002, kg, Priority: STAT, Start date: 08/06/20 18:27:00 CDT, Stop date: 08/06/20 18:27:00 CDT Potassium 2019-1 No 40 mEq, Memor ia Chloride 0-29 Route: PO, l 22:56: Drug form: ERTAB, ONCE, Dosing Weight 117.002, kg, Priority: STAT, Start date: 08/06/20 17:56:00 CDT, Stop date: 08/06/20 17:56:00 CDT Morphine 2020-1 No 4 mg, Memoria 0-29 Route: l 22:44: IVP, ONCE, Dosing Weight 117.002, kg, Priority: [...] 00 Refill(s), de 20 MG Pharmacy: [facility] [place], 170.18, cm, 07/06/20 5:14:00 CDT, Height, 105, kg, 07/06/20 5:14:00 CDT, Weight cefdinir 2019-10 Yes 300 mg = 1 Mem oria 300 MG Oral 0-07 cap, PO, l Capsule 17:35: Daily, X 7 Herm hannah 00 day, # 7 cap, 0 Refill(s), Pharmacy: [facility] [place], 170.18, cm, 07/06/20 5:14:00 CDT, Height, 105, kg, 07/06/20 5:14:00 CDT, Weight Metronidazo 2019-10 Yes 500 mg = 1 Memoria le 500 MG 0-07 tab, PO, l Oral Tablet 17:35: Q8H, X 7 He rmann [Flagyl] 00 day, # 21 tab, 0 Refill(s), Pharmacy: [facility] [place], 170.18, cm, 07/06/20 5:14:00 CDT, Height, 105, kg, 07/06/20 5:14:00 CDT, Weight Protonix 2019-10 No Notes: Memoria 0-07 Tablet l 12:30: should not [place] 00 be chewed or crushed. (Same as: Protonix) Potassium 2019-10 No Notes: Memori a Chloride 0-06 (Same as: l 22:47: K-Dur 20) [place] 00 "Do Not Crush" Give with food and full glass of water For patients unable to swallow tablet, dissolve in one half glass of water. Allow about 2 minutes for the tablets to disintegra te. Stir before giving to prepare slurry and administer . Please exclude Patient s with feeding tube less than 14 [place] (Dobhoff, J-tube etc) and pediatric and patients. Clonidine 2019-10 No Notes: Memori a 0-06 (Same As: l 22:46: Catapres) [place] 00 Sucralfate 2019-10 No Notes: May M emoria 100 MG/ML 0-06 interfere l Oral 18:00: w/enteral [place] Suspension 00 feeds - [Carafate] Take 1 hr before or 2 hr after antacids, dairy pdt, meals & minerals - On empty stomach. sevelamer 2019-10 No Notes: Memori a 0-06 Same as: l 17:00: Renvela [place] 00 Potassium 2019-10 No Notes: Memori a Chloride 0-06 (Same as: l 13:00: K-Dur 20) [place] 00 "Do Not Crush" Give with food and full glass of water For patients unable to swallow tablet, dissolve in one half glass of water. Allow about 2 minutes for the tablets to disintegra te. Stir before giving to prepare slurry and administer . Please exclude Patient s with feeding tube less than 14 [place] (Dobhoff, J-tube etc) and pediatric and patients. Ceftriaxone 2019-10 No Notes: Kojo lynn 0-05 (Same As: l 23:00: Rocephin). [place] 00 Use with 100 mL NS and infuse over 30 min MEDICATION WASTE Product Size: 1000 mg Product Wasted: ___ mg Bentyl 2019-10 No Notes: Memoria 0-05 (Same as: l 22:00: Bentyl) [place] 00 Potassium 2019-10 No Notes: Memori a Chloride 0-05 (Same as: l 12:44: K-Dur 20) [place] 00 "Do Not Crush" Give with food and full glass of water For patients unable to swallow tablet, dissolve in one half glass of water. Allow about 2 minutes for the tablets to disintegra te. Stir before giving to prepare slurry and administer . Please exclude Patient s with feeding tube less than 14 [place] (Dobhoff, J-tube etc) and pediatric and patients. vancomycin 2019-10 No Notes: Memor ia + Sodium 0-04 TIME l Chloride 23:00: CRITICAL [place] nn 0.9% IV 100 00 MEDICATION mL (Same As: Vancocin) For adult patients only: Round to nearest 250 mg per Medical Staff approval Potassium 2019-10 No Notes: Memori a Chloride 0-04 (Same as: l 15:16: K-Dur 20) [place] "Do Not Crush" Give with food and full glass of water For patients unable to swallow tablet, dissolve in one half glass of water. Allow about 2 minutes for the tablets to disintegra te. Stir before giving to prepare slurry and administer . Please exclude Patient s with feeding tube less than 14 [place] (Dobhoff, J-tube etc) and pediatric and patients. Flagyl 2019-10 No Notes: Memoria 0-03 (Same as: l 23:00: Flagyl) [place] Avoid alcohol. Potassium 2019-10 No Notes: Memori a Chloride 0-03 (Same as: l 16:13: K-Dur 20) [place] 00 "Do Not Crush" Give with food and full glass of water For patients unable to swallow tablet, dissolve in one half glass of water. Allow about 2 minutes for the tablets to disintegra te. Stir before giving to prepare slurry and administer . Please exclude Patient s with feeding tube less than 14 [place] (Dobhoff, J-tube etc) and pediatric and patients. vancomycin 2019-10 No Notes: Memor ia + Sodium 0-02 TIME l Chloride 18:00: CRITICAL [place] nn 0.9% IV 100 00 MEDICATION mL (Same As: Vancocin) For adult patients only: Round to nearest 250 mg per Medical Staff approval Zofran 2019-10 No Notes: Memoria 0-01 (Same as: l 19:33: Zofran) Dextrose 2019-10 No 12.5 gm, Memor ia 50% Syringe 0-01 25 mL, l (D50W) 19:27: Route: [place] 00 IVP, Drug Form: INJ, Dosing Weight [...] 0 Insulin 2019-10 No Notes: Memoria Lispro 0- (Same as: l 19:27: Humalog) Roll in [...] s with feeding tube less than 14 [place] (Dobhoff, J-tube etc) and pediatric and patients. vancomycin No Notes: Memor ia + Sodium 9-30 TIME l Chloride 21:00: CRITICAL [place] nn 0.9% IV 100 00 MEDICATION mL (Same As: Vancocin) For adult patients only: Round to nearest 250 mg per Medical Staff approval Potassium No Notes: Memori a Chloride 9-30 (Same as: l 13:16: K-Dur 20) [place] 00 "Do Not Crush" Give with food and full glass of water For patients unable to swallow tablet, dissolve in one half glass of water. Allow about 2 minutes for the tablets to disintegra te. Stir before giving to prepare slurry and administer . Please exclude Patient s with feeding tube less than 14 [place] (Dobhoff, J-tube etc) and pediatric and patients. Tylenol No Notes: Do Memor ia 07-07 not exceed l 15:39: 4 gm/day. [place] 00 (Same as: Tylenol) Roxicodone No Notes: Memor ia 07-07 (Same as: l 15:38: Roxicodone ) Acetaminoph 2019-0 No 1 tab, Kojo lynn en 325 MG / 07-07 Route: PO, l Oxycodone 15:33: Drug Form: Jarad rmann Hydrochlori 00 TAB, [...] 07-07 (Same as: l 13:09: K-Dur 20) "Do Not Crush" Give with food and full glass of water For patients unable to swallow tablet, dissolve in one half glass of water. Allow about 2 minutes for the tablets to disintegra te. Stir before giving to prepare slurry and administer . Please exclude Patient s with feeding tube less than 14 [place] (Dobhoff, J-tube etc) and pediatric and patients. Epogen No Notes: Memoria 07-07 Same as: l 13:08: Retacrit) [place] 00 epoetin franca-epbx 15569 unit/1 ml VL. WASTE: F/P - Red; E Red MEDICATION WASTE Product Size: 95538 unit Product Wasted: ___ unit potassium No [...] s with feeding tube less than 14 [place] (Dobhoff, J-tube etc) and pediatric and patients. carvedilol No Notes: Memor ia 07-07 Give with l 02:00: food. [place] 00 (Same As: Coreg) tamsulosin No Notes: Memor ia 07-07 (Same As: l 02:00: Flomax) [place] 00 "Do Not Crush" ferric Yes See Memoria citrate 07-06 Instructio l 1000 MG 21:49: ns, 210 PO Herm hannah Oral Tablet 00 TAKE 2 [Auryxia] TABS TID WITH MEALS AND 1 TAB TWIC A DAY WITH SNACKS, 0 Refill(s) heparin 0 No Notes: Memoria sodium, 07-06 porcine l porcine 21:00: heparin [place] 2500 UNT/ML 00 Injectable Solution Hydralazine No Notes: Kojo lynn Hydrochlori 07-06 (Same as: l de 25 MG 21:00: Apresoline Her meeks Oral Tablet 00 ) May interfere w/enteral feedings Take With Food Amlodipine No 1 cap, Memor ia 10 MG / 07-06 Route: PO, l Benazepril 18:00: Drug Form: H ermann hydrochlori 00 CAP, de 20 MG Dosing Oral Weight Capsule 105, kg, TID, Start date: 07/06/20 13:00:00 CDT, Duration: 30 day, Stop date: 08/05/20 9:00:00 CDT calcium 2019-0 No Notes: Memoria acetate 667 07-06 Same as l MG Oral 18:00: Phoslo Gel Herm hannah Capsule Cap Hydroxyzine No Notes: Kojo lynn Hydrochlori 07-06 (Same as: l de 25 MG 18:00: Atarax) Rafael n Oral Tablet 00 Avoid alcohol. Vancomycin 0 No 2001 mg: Me moria 07-06 infuse l 18:00: over 2.5 [place] 00 hours For adult patients only: Round to nearest 250 mg per Medical Staff approval MEDICATION WASTE Product Size: 1000 mg Product Wasted: ___ mg acetaminoph No Notes: Do M emoria en-codeine 07-06 not exceed l #3 17:42: 4gm/day of [place] acetaminop hen. (Same as: Tylenol with Codeine # 3) Diazepam No Notes: Memoria 07-06 (Same as: l 17:42: Valium) [place] 00 potassium 2019- No Notes: Memori a chloride 07-06 (Same as: l 16:00: Potassium Chloride) Hydromorpho No Notes: Kojo lynn ne 07-06 Same as: l 13:57: Dilaudid Acetaminoph No Notes: Do M emoria en 325 MG / 07-06 not exceed l Hydrocodone 13:57: 4gm/day of [place] Bitartrate 00 acetaminop 10 MG Oral hen. Tablet (Same as: [[place] 10/325] 325/10) Potassium No 60 mEq, Memor ia Chloride 07-06 Route: PO, l 1.33 MEQ/ML 13:45: ONCE, [place] nn Oral 00 Dosing Solution Weight 105, kg, Start date: 07/06/20 8:45:00 CDT, Stop date: 07/06/20 8:45:00 CDT Hydromorpho No 1 mg, Memor ia ne 07-06 Route: l 12:40: IVP, ONCE, [place] 00 Dosing Weight 105, kg, Priority: STAT, Start [...] 1000 mg Product Wasted: ___ mg Vancomycin No 2000 mg: Me moria 07-06 infuse l 11:04: over 2.5 [place] 00 hours For adult patients only: Round to nearest 250 mg per Medical Staff approval MEDICATION WASTE Product Size: 1000 mg Product Wasted: ___ mg Morphine 2019-0 No Notes: Memoria 07-06 (Same l 10:32: as:MORPhin e Sulfate) Acetaminoph 2019-0 No Notes: Do M emoria en 300 MG / 8-13 not exceed l Codeine 14:43: 4gm/day of Herm acetaminop 30 MG Oral hen. Tablet (Same as: [Tylenol Tylenol with with Codeine #3] Codeine # 3) POLYETHYLEN 2019-0 Yes 17 gm, PO, Memoria E GLYCOL [...] CDT, Stop date: 03/23/20 8:48:00 CDT Zofran 2020-0 No 4 mg, Memoria 6-15 Route: l 13:48: IVP, Drug [place] 00 form: INJ, ONCE, Dosing Weight 104, kg, Priority: STAT, Start date: 03/23/20 8:48:00 CDT, Stop date: 03/23/20 8:48:00 CDT Acetaminoph 2019-0 No 1 tab, Kojo lynn en 325 MG / 03-23 Route: PO, l Hydrocodone 10:53: Drug Form: [place] Bitartrate 00 TAB, 5 MG Oral Dosing Tablet Weight [[place] 104, kg, 5/325] ONCE, STAT, Start date: 03/23/20 5:53:00 CDT, Stop date: 03/23/20 5:53:00 CDT Acetaminoph 2019-0 No Notes: Do M emoria en 325 MG / 03-23 not exceed l Hydrocodone 09:02: 4gm/day of [place] Bitartrate 00 acetaminop 10 MG Oral hen. Tablet (Same as: [[place] 10/325] 325/10) Sodium No 250 mL, Memoria Chloride 03-23 Rate: To l 0.9% 06:23: prime line Marlo (titrate) 00 and flush 250 mL remaining blood products., Dosing Weight 104, kg, Route: IV, Total Volume: 250, Priority: Routine, Start Date: 03/23/20 1:23:00 CDT, Duration: 1 day, Stop date: 03/24/20 1:22:00 CDT, Replace Every: 24 hr, 0 Acetaminoph Yes 1 tab, PO, Memoria en 300 MG / 27 Q6H, X 3 l Codeine 22:40: day, # 12 [place] nn Phosphate 00 tab, 0 30 MG Oral Refill(s) Tablet [Tylenol with Codeine #3] Dilaudid 2019-0 No Notes: Memoria 4-27 Same as: l 22:39: Dilaudid [place] 00 Hydralazine 0 No 50 mg, 1 Me moria Hydrochlori 4-27 tab, l de 50 MG 22:20: Route: PO, Her meeks Oral Tablet 00 Drug form: TAB, ONCE, Dosing Weight 104.545, kg, Start date: 02/03/20 17:20:00 CDT, Stop date: 02/03/20 17:20:00 CDT Zofran No Notes: Memoria 02-02 (Same as: l 20:19: Zofran) MEDICATION WASTE Product Size: 4 mg Product Wasted: ___ mg Morphine No Notes: Memoria 02-02 (Same l 20:18: as:MORPhin e Sulfate) Acetaminoph Yes 1-2 tab, Me moria en 325 MG / 11-05 PO, Q4-6H, l Hydrocodone 20:46: PRN Pain, H ermann Bitartrate 00 X 5 day, # 10 MG Oral 20 tab, 0 Tablet Refill(s), [[facility]: ] [facility] [place] vancomycin No 2000 mg: Me moria 11-04 infuse l 19:00: over 2.5 00 hours For adult patients only: Round to nearest 250 mg per Medical Staff approval MEDICATION WASTE Product Size: 1000 mg Product Wasted: ___ mg Amlodipine No 1 cap, Memor ia 10 MG / 11-04 Route: PO, l Benazepril 19:00: Drug Form: H ermann hydrochlori 00 CAP, de 20 MG Dosing Oral Weight Capsule 99.091, kg, TID, Start date: 11/04/19 13:00:00 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 Allow about 2 minutes for the tablets to disintegra te. Stir before giving to prepare slurry and administer . Please exclude Patient s with feeding tube less than 14 [place] (Dobhoff, J-tube etc) and pediatric and patients. epoetin No Notes: Memoria franca 11-04 (Same as: l 15:00: Procrit) [place] epoetin franca 23875 unit/1 ml VL. For dialysis use only. (Procrit) WASTE: F/P - Red; E -Red MEDICATION WASTE Product Size: 23867 unit Product Wasted: ___ unit Lisinopril No Notes: Memor ia 11-04 (Same as: l 14:47: Prinivil, [place] 00 Zestril) Vancomycin No 2001 mg: Me moria 11-04 infuse l 14:40: over 2.5 [place] 00 hours For adult patients only: Round to nearest 250 mg per Medical Staff approval MEDICATION WASTE Product Size: 1000 mg Product Wasted: ___ mg Lasix No Notes: Memoria 11-03 (Same as: l 23:00: Lasix) [place] May cause GI upset. Give with food or milk. vancomycin No Notes: Memor ia + Sodium 11-03 TIME l Chloride 21:00: CRITICAL [place] nn 0.9% IV 100 00 MEDICATION mL (Same As: Vancocin) For adult patients only: Round to nearest 250 mg per Medical Staff approval Potassium No Notes: Memori a Chloride 11-03 (Same as: l 15:32: K-Dur 20) [place] "Do Not Crush" Give with food and full glass of water For patients unable to swallow tablet, dissolve in one half glass of water. Allow about 2 minutes for the tablets to disintegra te. Stir before giving to prepare slurry and administer . Please exclude Patient s with feeding tube less than 14 [place] (Dobhoff, J-tube etc) and pediatric and patients. Epogen No Notes: Memoria 11-03 (Same as: l 15:32: Procrit) [place] 00 epoetin [place] 92653 unit/1 ml VL. For dialysis use only. (Procrit) WASTE: F/P - Red; E -Red MEDICATION WASTE Product Size: 91927 unit Product Wasted: ___ unit Dilaudid 2019-0 No Notes: Memoria 1-25 Same as: l 18:03: Dilaudid heparin 2019-0 No 10,000 Memoria 1-25 unit, 10 l 02:00: mL, Route: DIALYSIS, Drug form: INJ, ONCALL, Dosing Weight 99.091, kg, Start date: 11/01/19 20:00:00 TRIMMER MACHINE OPERATOR, Duration: 1 doses or times, 0 vancomycin 2019-0 No Notes: Memor ia + Sodium 1-24 TIME l Chloride 20:00: CRITICAL [place] nn 0.9% IV 100 00 MEDICATION mL (Same As: Vancocin) For adult patients only: Round to nearest 250 mg per Medical Staff approval potassium No Notes: Memori a chloride 1-24 (Same as: l 19:51: K-Dur 20) "Do Not Crush" Give with food and full glass of water For patients unable to swallow tablet, dissolve in one half glass of water. Allow about 2 minutes for the tablets to disintegra te. Stir before giving to prepare slurry and administer . Please exclude Patient s with feeding tube less than 14 [place] (Dobhoff, J-tube etc) and pediatric and patients. Dilaudid 2019-0 No Notes: Memoria 1-24 Same as: l 18:47: Dilaudid Potassium 2019-0 No Notes: Memori a Chloride 1-24 (Same as: l 16:00: K-Dur 20) [place] 00 "Do Not Crush" Give with food and full glass of water For patients unable to swallow tablet, dissolve in one half glass of water. Allow about 2 minutes for the tablets to disintegra te. Stir before giving to prepare slurry and administer . Please exclude Patient s with feeding tube less than 14 [place] (Dobhoff, J-tube etc) and pediatric and patients. heparin 2020-0 No 10,000 Memoria 1-24 unit, 10 l 01:00: mL, Route: [place] 00 DIALYSIS, Drug form: INJ, ONCALL, Dosing Weight 99.091, kg, Start date: 10/31/19 19:00:00 TRIMMER MACHINE OPERATOR, Duration: 1 doses or times, 0 Albuterol 2019-0 No Notes: Memori a 0.833 MG/ML -23 (Same as: l / 15:09: Duoneb) Ipratropium 00 [place] 0.167 MG/ML Inhalant Solution [DuoNeb] Potassium 2019-0 [...] s with feeding tube less than 14 [place] (Dobhoff, J-tube etc) and pediatric and patients. heparin No 10,000 Memoria -23 unit, 10 l 05:00: mL, Route: DIALYSIS, Drug form: INJ, ONCALL, Dosing Weight 99.091, kg, Start date: 10/30/19 23:00:00 TRIMMER MACHINE OPERATOR, Duration: 1 doses or times, 0 Potassium [...] s with feeding tube less than 14 [place] (Dobhoff, J-tube etc) and pediatric and patients. Tylenol 0 No Notes: Do Memor ia - not exceed l 19:42: 4 gm/day. (Same as: Tylenol) Roxicodone 2019-0 No Notes: Memor ia - (Same as: l 19:41: Roxicodone ) Acetaminoph 2019-0 No 1 tab, Kojo lynn en 325 MG / 10-30 Route: PO, l Oxycodone 19:20: Drug Form: He adry Hydrochlori 00 TAB, de 5 MG Dosing Oral Tablet Weight [Percocet 99.091, 5/325] kg, Q4H, PRN Pain Score 4-6, Start date: 10/30/19 13:20:00 TRIMMER MACHINE OPERATOR, Duration: 30 day, Stop date: 11/29/19 13:19:00 TRIMMER MACHINE OPERATOR vancomycin No 2000 mg: moria + Sodium -22 infuse l Chloride 18:00: over 2.5 [place] nn 0.9% IV 250 00 hours For mL adult patients only: Round to nearest 250 mg per Medical Staff approval MEDICATION WASTE Product Size: 1000 mg Product Wasted: ___ mg cefepime No Notes: Memoria 10-30 (Same As: l 16:00: Maxipime) MEDICATION WASTE Product Size: 1000 mg Product Wasted: ___ mg Vancomycin No 2001 mg: moria - infuse l 16:00: over 2.5 [place] 00 hours For adult patients only: Round to nearest 250 mg per Medical Staff approval MEDICATION WASTE Product Size: 1000 mg Product Wasted: ___ mg NIFEdipine 2019-0 No Notes: Memor ia 90 mg oral 10-30 (Same as: l tablet, 15:00: Adalat [place] extended 00 CC,Procard release ia XL) "Do Not Crush" "Avoid grapefruit and grapefruit juice" Fauzia-Conor No Fauzia-Conor Mem oria oral tablet 10-30 oral l 15:00: tablet, 1 tab, Route: PO, Daily, 10/30/19 9:00:00 TRIMMER MACHINE OPERATOR, Duration: 30 day, Stop date: 11/28/19 9:00:00 TRIMMER MACHINE OPERATOR Nephro-Conor 0 No Notes: Kojo lynn Rx 10-30 (Same as: l 15:00: Nephro-Vit [place] 00 e Rx and Diatx) Give with food. Epoetin No Notes: Memoria Franca 10-30 (Same as: l 14:39: Procrit) epoetin franca 20279 unit/1 ml VL. For dialysis use only. (Procrit) WASTE: F/P - Red; E -Red MEDICATION WASTE Product Size: 09136 unit Product Wasted: ___ unit Potassium 0 No Notes: Memori a Chloride 10-30 (Same as: l 14:38: K-Dur 20) "Do Not Crush" Give with food and full glass of water For patients unable to swallow tablet, dissolve in one half glass of water. Allow about 2 minutes for the tablets to disintegra te. Stir before giving to prepare slurry and administer . Please exclude Patient s with feeding tube less than 14 [place] (Dobhoff, J-tube etc) and pediatric and patients. carvedilol 2019-0 No Notes: Memor ia - Give with l 03:00: food. [place] 00 (Same As: Coreg) tamsulosin 2019-0 No Notes: Memor ia - (Same As: l 03:00: Flomax) [place] "Do Not Crush" Lactulose No Notes: Memori a 667 MG/ML 10-30 (Same l Oral 00:36: as:Chronul [place] Solution 00 ac) Lactulose 0 No Notes: Memori a - Lactulose l 00:36: 300ml, [place] Water for Irrigation 700ml - total volume = 1000ml tizanidine 2019-0 No Notes: Memor ia - (Same As: l 22:22: Zanaflex) Hydralazine No Notes: Kojo lynn Hydrochlori - (Same as: l de 25 MG 22:00: Apresoline Her meeks Oral Tablet ) May interfere w/enteral feedings Take With Food. calcium Yes 2,001 mg = Kojo lynn acetate 667 10-29 3 cap, PO, l MG Oral 21:57: TID, 0 [place] Capsule 00 Refill(s) Diazepam 2019-0 No Notes: Memoria -21 (Same as: l 21:25: Valium) Hydralazine 2019-0 No Notes: Kojo lynn -21 (Same as: l 18:50: Apresoline [place] ) Push over 5 minutes acetaminoph 2019-0 No Notes: Do M emoria en-codeine - not exceed l #3 18:49: 4gm/day of acetaminop hen. (Same as: Tylenol with Codeine # 3) Lasix 2019-0 No Notes: Memoria -21 (Same as: l 15:00: Lasix) [place] MEDICATION WASTE Product Size: 40 mg Product Wasted: ___ mg Docusate 2019- No Notes: Memoria 10-29 (Same as: l 15:00: Colace) (Do Not Crush) Potassium 2019-0 No Notes: Memori a Chloride 10-29 (Same [...] s with feeding tube less than 14 [place] (Dobhoff, J-tube etc) and pediatric and patients. Magnesium 2019- No Notes: Memori a Sulfate 10-29 WASTE: F/P l 14:55: - Sink; E - Municipal Trash Bin Diazepam 2019-0 Yes 10 mg, PO, Mem oria 10-29 PRN as l 08:31: needed for anxiety, 0 Refill(s) zolpidem 10 Yes 10 mg = 1 M emoria mg oral 10-29 tab, PO, l tablet 08:27: Bedtime, PRN as needed for insomnia, 0 Refill(s) Lasix 2019-0 No Notes: Memoria 10-29 (Same as: l 06:55: Lasix) MEDICATION WASTE Product Size: 40 mg Product Wasted: ___ mg Dextrose 2019-0 No 12.5 gm, Memor ia 50% Syringe 10-29 25 mL, l (D50W) 06:50: Route: IVP, Drug Form: INJ, Dosing Weight 90.909, kg, PRN, PRN Blood Glucose Results, Start date: 10/29/19 0:50:00 TRIMMER MACHINE OPERATOR, Duration: 30 day, Stop date: 11/28/19 0:49:00 TRIMMER MACHINE OPERATOR, 0 Glucagon 2019-0 No 1 mg, Memoria 10-29 Route: IM, l 06:50: Drug form: PDR/INJ, PRN, Dosing Weight 90.909, kg, PRN Blood Glucose Results, Start date: 10/29/19 0:50:00 TRIMMER MACHINE OPERATOR, Duration: 30 day, Stop date: 11/28/19 0:49:00 TRIMMER MACHINE OPERATOR, 0 Ondansetron No Notes: Kojo lynn 10-29 (Same as: l 06:50: Zofran) MEDICATION WASTE Product Size: 4 mg Product Wasted: ___ mg Melatonin No Notes: Memori a 10-29 (Same as: l 06:50: Melatonin) Acetaminoph No Notes: Do M emoria en 10-29 not exceed l 06:50: 4 gm/day. [place] 00 (Same as: Tylenol) Albuterol No Notes: SEE Me moria 0.83 MG/ML 10-29 RT l Inhalant 05:31: DOCUMENTAT Her meeks Solution 00 ION (Same as: Proventil) Albuterol No Notes: Memori a 0.833 MG/ML 10-29 (Same as: l / 03:22: Duoneb) Ipratropium 00 [place] 0.167 MG/ML Inhalant Solution [DuoNeb] Albuterol No Notes: SEE Me moria 0.83 MG/ML 10-29 RT l Inhalant 03:22: DOCUMENTAT Her meeks Solution 00 ION (Same as: Proventil) carvedilol 2018-10 Yes 12.5 mg = Me moria 12.5 mg 1-12 1 tab, PO, l oral tablet 17:56: Q12H, # 60 [place] 00 tab, 0 Refill(s), Pharmacy: [facility] Furosemide 2018-10 Yes 80 mg = 2 Me moria 40 MG Oral 1-12 tab, PO, l Tablet 17:56: TID, # 180 [place] nn 00 tab, 0 Refill(s), Pharmacy: [facility] Hydralazine 2018-10 Yes 50 mg = 2 M emoria Hydrochlori 1-12 tab, PO, l de 25 MG 17:56: Q8H, # 180 Her meeks Oral Tablet 00 tab, 0 Refill(s), Pharmacy: [facility] lisinopril 2018-10 Yes 40 mg = 1 Me moria 40 mg oral 1-12 tab, PO, l tablet 17:56: Daily, # [place] 00 30 tab, 0 Refill(s), Pharmacy: [facility] [place] NIFEdipine 2018-10 Yes 90 mg = 1 Me moria 90 mg oral 1-12 tab, PO, l tablet, 17:56: Daily, # Rafael n extended 00 30 tab, 0 release Refill(s), Pharmacy: [facility] [place] carvedilol 2018-10 No Notes: Memor ia 1-12 Give with l 03:00: food. (Same As: Coreg) NIFEdipine 2018-10 No 90 mg, Memor ia 60 mg oral 1-11 Route: PO, l tablet, 15:00: Drug form: Herm hannah extended ERTAB, release Daily, Dosing Weight 96.364, kg, Start date: 08/19/19 9:00:00 TRIMMER MACHINE OPERATOR, Duration: 30 day, Stop date: 09/17/19 9:00:00 TRIMMER MACHINE OPERATOR, 0 lisinopril 2018-10 No Notes: Memor ia 1-11 (Same as: l 15:00: Prinivil, Zestril) carvedilol 2018-10 No Notes: Memor ia [...] ia 1-10 (Same as: l 20:11: Prinivil, [place] 00 Zestril) NIFEdipine 2018-10 No Notes: Memor ia 60 mg oral 1-10 (Same as: l tablet, 20:09: Adalat CC, Herm hannah extended Procardia release XL) Give on empty stomach. Take 1 hour before or 2 hours after meal; "Avoid grapefruit and grapefruit juice". Do not crush heparin 2018-10 No 10,000 Memoria 1-10 unit/mL, l 15:29: Route: [place] 00 DIALYSIS, Drug form: INJ, ONCALL, Dosing Weight 96.364, kg, Priority: NOW, Start date: 08/18/19 9:29:00 TRIMMER MACHINE OPERATOR, Duration: 1 doses or times, 0 heparin 2018-10 No 10,000 Memoria 09 unit, 10 l 19:00: mL, Route: [place] 00 DIALYSIS, Drug form: INJ, ONCALL, Dosing Weight 96.364, kg, Start date: 08/17/19 13:00:00 TRIMMER MACHINE OPERATOR, Duration: 1 doses or times, 0 Sodium 2018-10 No 1,000 mL, Memori a Chloride 10-17 1,000 l 0.9% 18:06: ml/hr, [place] (Bolus) IV 00 Infuse Over: 1 hr, Route: IV, 1,000, Drug form: INJ, PRN, Priority: STAT, Dosing Weight 96.364 kg, Start date: 08/17/19 12:06:00 TRIMMER MACHINE OPERATOR, Duration: 30 day, Stop date: 09/16/19 12:05:00 TRIMMER MACHINE OPERATOR, PRN Dialysis, 0 Potassium 2018-10 No Notes: [...] s with feeding tube less than 14 [place] (Dobhoff, J-tube etc) and pediatric and patients. Seroquel 2018-10 No Notes: Memoria - (Same as: l 02:36: SEROquel) Ativan 2018-10 No Notes: Memoria - (Same as: l 21:45: Ativan) [place] 00 Ativan 2018-10 No Notes: Memoria 1- (Same as: l 19:03: Ativan) amLODIPine 2018-10 No Notes: Memor ia - (Same as: l 15:00: Norvasc) lisinopril 2018-10 No Notes: Memor ia - (Same as: l 15:00: Prinivil, Zestril) multivitami 2018-10 No Notes: Kojo lynn [...] Memoria 1-07 (Same as: l 10:28: Haldol) [place] Haldol 2018-10 No Notes: Memoria 1-07 (Same as: l 10:25: Haldol) [place] heparin 2018-10 No Notes: Memoria 1-07 porcine l 06:00: heparin [place] 00 tamsulosin 2018-10 No Notes: Memor ia 1-07 (Same As: l 03:00: Flomax) [place] 00 "Do Not Crush" Amlodipine 2018-10 No 1 cap, Memor ia 10 MG / 10-14 Route: PO, l Benazepril 23:00: Drug Form: H ermann hydrochlori 00 CAP, de 20 MG Dosing Oral Weight Capsule 100.17, kg, TID, Start date: 08/14/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 [place] 00 (Same As: Coreg) Furosemide 2018-10 No Notes: Memor ia 1-06 (Same as: l 23:00: Lasix) [place] May cause GI upset. Give with food or milk. Hydralazine 2018-10 No Notes: Kojo lynn 1-06 (Same as: l 23:00: Apresoline [place] ) May interfere w/enteral feedings Take With Food Hydroxyzine 2018-10 No Notes: Kojo lynn Hydrochlori 1-06 (Same as: l de 25 MG 23:00: Atarax) Rafael n Oral Tablet 00 Avoid alcohol. NIFEdipine 2018-10 No Notes: Memor ia 30 mg oral 1-06 (Same as: l tablet, 22:45: Adalat CC, Procardia release XL) Give on empty stomach. [...] Blood Glucose Results, Start date: 08/14/19 15:47:00 TRIMMER MACHINE OPERATOR, Duration: 30 day, Stop date: 09/13/19 15:46:00 TRIMMER MACHINE OPERATOR, 0 Glucagon 2018-10 No 1 mg, Memoria 10-14 Route: IM, l 21:47: Drug form: PDR/INJ, PRN, Dosing Weight 100.17, kg, PRN Blood Glucose Results, Start date: 08/14/19 15:47:00 TRIMMER MACHINE OPERATOR, Duration: 30 day, Stop date: 09/13/19 15:46:00 TRIMMER MACHINE OPERATOR, 0 Ondansetron 2018-10 No Notes: Kojo lynn 10-14 (Same as: l 21:47: Zofran) MEDICATION WASTE Product Size: 4 mg Product Wasted: ___ mg Acetaminoph 2018-10 No Notes: Do M emoria en 10-14 not exceed l 21:47: 4 gm/day. (Same as: Tylenol) acetaminoph 2018-10 Yes 1 tab, PO, Memoria en-codeine 10-14 Q6H, PRN l #3 20:48: Pain Score 4-6, 0 Refill(s) Amlodipine 2018-10 No 1 cap, PO, M emoria 10 MG / 06 TID, 0 l Benazepril 20:48: Refill(s) He rmann hydrochlori 00 de 20 MG Oral Capsule carvedilol 2018-10 No 6.25 mg = Me moria 6.25 mg -06 1 tab, PO, l oral tablet 20:48: BID, # 180 [place] 00 tab, 0 Refill(s) Hydroxyzine 2018-10 Yes 25 mg = 1 M emoria Hydrochlori 1-06 tab, PO, l de 25 MG 20:48: TID, 0 [place] Oral Tablet 00 Refill(s) furosemide 2018-10 No 80 mg = 1 Me moria 80 mg oral -06 tab, PO, l tablet 20:48: TID, 0 [place] 00 Refill(s) doxycycline Yes 100 mg = 1 Memoria hyclate 100 7-01 cap, PO, l MG Oral 20:19: Q12H, X 5 [place] nn Capsule 00 day, # 10 cap, 0 Refill(s), Pharmacy: [facility] #[id number] lisinopril Yes 20 mg = 1 Me moria 20 mg oral 04-08 tab, PO, l tablet 20:19: Daily, # [place] 00 30 tab, 0 Refill(s), Pharmacy: [facility] #[id number] Miralax No Notes: Memoria 7- Dissolve l 14:36: in 8 oz of water or juice. (Same as: Miralax) tamsulosin No Notes: Memor ia 6-30 (Same As: l 02:00: Flomax) "Do Not Crush" atorvastati No Notes: Kojo lynn n 6-30 (Same as: l 02:00: Lipitor) Zithromax + No 500 mg, Mem oria Sodium 04-06 Route: l Chloride 22:00: IVPB, [place] 0.9% IV 250 00 [id number], mL Dosing Weight 102.273, kg, Start date: 04/06/19 17:00:00 CDT, Duration: 7 day, Stop date: 04/12/19 17:00:00 CDT, ABX Indication : Pneumonia, 0 Hydralazine No Notes: Kojo lynn 6-29 (Same as: l 22:00: Apresoline ) May interfere w/enteral feedings Take With Food Lasix No Notes: Memoria 6-29 (Same as: l 22:00: Lasix) May cause GI upset. Give with [...] (Same as: l oral 19:00: Adalat CC, [place] tablet, 00 Procardia extended XL) Give release on empty stomach. Take 1 hour before or 2 hours after meal; "Avoid grapefruit and grapefruit juice". Do not crush Alprazolam No Notes: Memor ia 2 MG Oral 6-29 With food l Tablet 18:22: or milk [place] [Xanax] 00 (Same as: Xanax) Hydralazine No Notes: Kojo lynn 6-29 (Same as: l 18:21: Apresoline ) Push over 5 minutes benazepril No 20 mg, Memor ia 6-29 Route: PO, l 14:00: Drug form: TAB, Daily, Dosing Weight 100.17, kg, Start date: 04/06/19 9:00:00 CDT, Duration: 30 day, Stop date: 05/05/19 9:00:00 CDT Saline No Notes: Memoria Flush 0.9% 6-29 preservati l 14:00: ve free. heparin No Notes: Memoria 6-29 porcine l 14:00: heparin lisinopril No Notes: Memor ia 6-29 (Same as: l 08:57: Prinivil, Zestril) Amlodipine No Notes: Memor ia 6-29 (Same as: l 08:56: Norvasc) carvedilol No Notes: Memor ia 6-29 Give with l 04:30: food. 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 Zithromax No 500 mg, Memor ia - Route: l 03:00: IVPB, [id number], Dosing Weight 102.273, kg, Start date: 04/05/19 22:00:00 CDT, Duration: 7 day, Stop date: 04/11/19 22:00:00 CDT, ABX Indication : Pneumonia Ceftriaxone No 1 gm, Memor ia 04-06 Route: l 03:00: IVPB, [id number], Dosing Weight 102.273, kg, Start date: 04/05/19 22:00:00 CDT, Duration: 7 day, Stop date: 04/11/19 22:00:00 CDT, ABX Indication : Pneumonia Glucagon No 1 mg, Memoria 04-06 Route: IM, l 02:03: Drug form: PDR/INJ, PRN, Dosing Weight 102.273, kg, PRN Blood Glucose Results, Start date: 04/05/19 21:03:00 CDT, Duration: 30 day, Stop date: 05/05/19 21:02:00 CDT, 0 Bisacodyl 0 No Notes: Memori a 6-29 (Same As: l 02:03: Dulcolax, [place]-Lax) Ondansetron 0 No Notes: Kojo lynn -29 (Same as: l 02:03: Zofran) MEDICATION WASTE Product Size: 4 mg Product Wasted: ___ mg Melatonin No Notes: Memori a 04-06 (Same as: l 02:03: Melatonin) Acetaminoph No [...] 0 release Refill(s), Pharmacy: [facility] #[id number] heparin 2017-10 No 10,000 Memoria 0-16 unit, 10 l 15:21: mL, Route: DIALYSIS, Drug form: INJ, ONCALL, Dosing Weight 102.273, kg, PRN Dialysis, Start date: 07/24/18 10:21:00 CDT, Duration: 1 doses or times, Stop date: Limited # of times Dilaudid 2017-10 No Notes: Memoria 0-15 (Same as: l 19:17: Dilaudid) heparin 2017-10 No 10,000 Memoria 0-15 unit, 10 l 13:00: mL, Route: [place] 00 DIALYSIS, Drug form: INJ, ONCALL, Dosing [...] 0-15 Route: PO, l 02:00: Drug form: [place] TAB, Bedtime, Dosing Weight 102.273, kg, Start date: 07/22/18 21:00:00 CDT, Duration: 30 day, Stop date: 08/20/18 21:00:00 TRIMMER MACHINE OPERATOR tamsulosin 2017-10 No Notes: Memor ia 0-15 (Same As: l 02:00: Flomax) "Do Not Crush" NIFEdipine 2017-10 No Notes: Memor ia 60 mg oral 0-14 (Same as: l tablet, 14:00: Adalat CC, Herm hannah extended Procardia release XL) Give on empty stomach. Take 1 hour before or 2 hours after meal; "Avoid grapefruit and grapefruit juice". Do not crush multivitami 2017-10 No Notes: Kojo lynn n 0-14 (Same l 14:00: as:One Tab [place] Daily, Tab-A-Conor + Beta Carotene) Give with food. Hydralazine 2017-10 No Notes: Kojo lynn Hydrochlori 0-14 (Same as: l de 50 MG 14:00: Apresoline Her meeks Oral Tablet ) May interfere w/enteral feedings Take With Food Lasix 2017-10 No Notes: Memoria 0-14 (Same as: l 14:00: Lasix) [place] May cause GI upset. Give with food or milk. carvedilol 2017-10 No Notes: Memor ia 0-14 Give with l 14:00: food. [place] 00 (Same As: Coreg) calcium 2017-10 No Notes: Memoria acetate 667 0-14 Same as l MG Oral 14:00: Phoslo Gel Herm hannah Capsule 00 Cap Amlodipine 2017-10 No Notes: Memor ia 0-14 (Same as: l 14:00: Norvasc) [place] 00 Docusate 2017-10 No Notes: Memoria 0-14 (Same as: l 14:00: Colace) [place] 00 (Do Not Crush) carvedilol 2017-10 Yes 37.5 mg = Me moria 12.5 mg 0-14 3 tab, PO, l oral tablet 11:45: BID, 0 Herm hannah 00 Refill(s) calcium 2017-10 Yes See Memoria acetate 667 0-14 Instructio l MG Oral 11:45: ns, 0 [place] Capsule 00 Refill(s) Hydralazine 2017-10 Yes 50 mg, PO, Memoria 0-14 TID, 0 l 11:45: Refill(s) Amlodipine 2017-10 Yes 1 cap, PO, M [...] With food l Tablet 11:31: or milk [Xanax] (Same as: Xanax) Dilaudid 2017-10 No Notes: Memoria 0-14 Same as: l 11:27: Dilaudid Dilaudid 2017-10 No 1 mg, Memoria 0-14 Route: l 09:04: IVP, ONCE, Dosing Weight 96.7, kg, Priority: STAT, Start date: 07/22/18 4:04:00 CDT, Stop date: 07/22/18 4:04:00 CDT Dilaudid 2017-10 No 1 mg, Memoria 0-14 Route: l 07:16: IVP, ONCE, Dosing Weight 96.7, kg, Priority: STAT, Start date: 07/22/18 2:16:00 CDT, Stop date: 07/22/18 2:16:00 CDT heparin 2017-10 No 10,000 Memoria 0-14 unit, 10 l 06:00: mL, Route: [place] 00 DIALYSIS, Drug form: INJ, [...] Duration: 30 day, Stop date: 08/21/18 0:42:00 TRIMMER MACHINE OPERATOR, 2.16, m2 Acetaminoph 2017-10 No Notes: Do [...] 0.9% 0-14 (Same as: l 02:24: BD Posiflush) lactulose 2017-10 No = 1 Pack, [...] Memor ia 0-12 (sodium l 23:39: polystyren [place] 00 e sulfonate 15 gm/60 ml CANDACE) [...] PO, l tablet 16:49: Bedtime, 0 [place] Refill(s) Lorazepam 1 Yes 1 mg = 1 Me moria MG Oral 8-14 tab, PO, l Tablet 16:49: PRN, 0 [place] 00 Refill(s) amLODIPine Yes 10 mg = 1 Me moria 10 mg oral 8-14 tab, PO, l tablet 16:49: Daily, 0 [place] 00 Refill(s) tamsulosin No Notes: Memor ia 7-09 (Same As: l 02:00: Flomax) "Do Not Crush" Hydralazine Yes 50 mg = 1 M emoria Hydrochlori 7-08 tab, PO, l de 50 MG 20:33: TID, # 90 Herm hannah Oral Tablet 00 tab, 0 Refill(s) NIFEdipine Yes 60 mg = 1 Me moria 60 mg oral -08 tab, PO, l tablet, 20:33: Daily, # Rafael n extended 00 30 tab, 0 release Refill(s) carvedilol Yes 3.125 mg = M emoria 3.125 mg 08 1 tab, PO, l oral tablet 20:33: Q12H, # 60 [place] 00 tab, 0 Refill(s) Potassium No Notes: Memori a Chloride 04-15 (Same as: l 20:22: K-Dur 20) [place] 00 "Do Not Crush" For patients unable to swallow tablet, dissolve in one half glass of water. Allow about 2 minutes for the tablets to disintegra te. Stir before giving to prepare slurry and administer . Please exclude Patient s with feeding tube less than 14 [place] (Dobhoff, J-tube etc) and pediatric and patients. With food and full glass of water Hydralazine No Notes: Kojo lynn Hydrochlori 04-15 (Same as: l de 25 MG 14:00: Apresoline Her meeks Oral Tablet 00 ) May interfere w/enteral feedings Take With Food. Lasix No Notes: Memoria 04-15 (Same as: l 14:00: Lasix) [place] May cause GI upset. Give with food or milk. Acetaminoph No 1 tab, Kojo lynn en 325 MG / 04-15 Route: PO, l Oxycodone 14:00: Drug Form: Jarad rmann Hydrochlori 00 TAB, de 5 MG Dosing Oral Tablet Weight [Percocet 74.091, 5/325] kg, BID, Start date: 04/15/18 9:00:00 CDT, Duration: 30 day, Stop date: 05/14/18 17:00:00 CDT carvedilol No Notes: Memor ia 04-15 Give with l 14:00: food. [place] 00 (Same As: Coreg) calcium No Notes: Memoria acetate 667 04-15 Same as l MG Oral 14:00: Phoslo Gel Herm hannah Capsule 00 Cap Amlodipine No Notes: Memor ia -08 (Same as: l 14:00: Norvasc) Morphine 2017- No 2 mg, 1 Memori a 7-08 [...] 25 gm, 50 Kojo lynn 50% Syringe 04-15 mL, Route: l 07:15: IVP, Drug Form: INJ, Dosing Weight 74.091, kg, PRN, PRN Blood Glucose Results, Start date: 04/15/18 2:15:00 CDT, Duration: 30 day, Stop date: 05/15/18 2:14:00 CDT Glucagon No 1 mg, Memoria 04-15 Route: IM, l 07:15: Drug form: [place] 00 PDR/INJ, PRN, Dosing Weight 74.091, kg, PRN Blood Glucose Results, Start date: 04/15/18 2:15:00 CDT, Duration: 30 day, Stop date: 05/15/18 2:14:00 CDT Ergocalcife No 50,000 Kojo lynn rol [id number] 04-15 IntlUnit, l UNT Oral 07:00: 1 cap, [place] Capsule 00 Route: PO, Drug form: CAP, qWeek, Dosing Weight 74.091, kg, Start date: 04/15/18 2:00:00 CDT, Duration: 30 day, Stop date: 05/13/18 9:00:00 CDT Alprazolam No Notes: Memor ia 2 MG Oral 04-15 With food l Tablet 06:56: or milk [place] [Xanax] 00 (Same as: Xanax) NS (Bolus) No 250 mL, Kojo lynn IV 04-15 500 ml/hr, l 06:34: Infuse [place] 00 Over: 0.5 hr, Route: IV, 250, Drug form: INJ, ONCE, Priority: STAT, Dosing Weight 74.091 kg, Start date: 04/15/18 1:34:00 CDT, Stop date: 04/15/18 1:34:00 CDT Hydralazine No 10 mg, Kojo lynn 04-15 Route: l 06:27: IVP, ONCE, [place] 00 Dosing Weight 74.091, kg, Priority: STAT, Start date: 04/15/18 1:27:00 CDT, Stop date: 04/15/18 1:27:00 CDT Amlodipine No Notes: Memor ia -08 (Same as: l 03:50: Norvasc) [place] 00 Hydralazine No Notes: Kojo lynn 7-08 (Same as: l 03:50: Apresoline [place] ) Push over 5 minutes Clonidine No 0.1 mg, Memor ia Hydrochlori 08 Route: PO, l de 0.1 MG 03:02: Drug form: He rmann Oral Tablet 00 TAB, ONCE, Dosing Weight 74.091, kg, Priority: STAT, Start date: 04/14/18 22:02:00 CDT, Stop date: 04/14/18 22:02:00 CDT Clonidine 0 No Notes: Memori a Hydrochlori -08 (Same As: l de 0.1 MG 00:45: Catapres) Her meeks Oral Tablet 00 Saline No Notes: Memoria Flush 0.9% 7-07 (Same as: l 23:55: BD [place] 00 Posiflush) vancomycin No Notes: Memor ia [...] 14 cap, 0 Refill(s), Pharmacy: [facility] #[id number] heparin No 10,000 Memoria 6-11 unit, 10 l 15:00: mL, Route: [place] 00 DIALYSIS, Drug form: INJ, ONCALL, Dosing Weight 100.455, kg, Start date: 03/19/18 10:00:00 CDT, Duration: 1 doses or times Sodium No 1,000 mL, Memori a Chloride 6-11 Rate: l 0.9% IV 14:14: 2000, [place] 1,000 mL 00 Route: IV, Dosing Weight 100.455 kg, Total Volume: 1,000, Start date: 03/19/18 9:14:00 CDT, Duration: 1 doses or times, Stop date: 03/20/18 9:13:00 CDT, 2.19, m2 Tylenol No Notes: Do Memor ia 6-10 not exceed l 23:00: 4 gm/day. [place] (Same as: Tylenol) Roxicodone No Notes: Memor ia 6-10 (Same as: l 23:00: Roxicodone ) Acetaminoph No Notes: Do M emoria en 325 MG / 6-10 not exceed l Oxycodone 22:00: 4gm/day of He rmann Hydrochlori acetaminop de 5 MG hen. Oral Tablet (Same as: [Percocet Percocet-5 5/325] /325) Amlodipine No Notes: Memor ia 6-10 (Same as: l 14:00: Norvasc) [place] 00 Alprazolam No Notes: Memor ia 2 MG Oral 10 With food l Tablet 04:20: or milk [place] [Xanax] (Same as: Xanax) Vancomycin No 2001 mg: Me moria Pharmacy 610 infuse l Dosing + 03:00: over 2.5 [place] nn Sodium 00 hours For Chloride adult 0.9% IV 250 patients mL only: Round to nearest 250 mg per Medical Staff approval MEDICATION WASTE Product Size: 1000 mg Product Wasted: ___ mg tamsulosin No Notes: Memor ia 6-10 (Same As: l 02:00: Flomax) [place] 00 "Do Not Crush" carvedilol No Notes: Memor ia 6-10 Give with l 02:00: food. [place] (Same As: Coreg) Hydralazine No Notes: Kojo lynn Hydrochlori 03-17 (Same as: l de 25 MG 22:00: Apresoline Her meeks Oral Tablet ) May interfere w/enteral feedings Take With Food. Lasix No Notes: Memoria - (Same as: l 22:00: Lasix) [place] May cause GI upset. Give with food or milk. Hydralazine No Notes: Kojo lynn - (Same as: l 20:10: Apresoline [place] ) Push over 5 minutes Acetaminoph No Notes: Kojo lynn en 325 MG / 03-17 (Same as: l Hydrocodone 20:10: [place] nn Bitartrate 00 325/5) Do 5 MG Oral not exceed Tablet 4gm/day of [[place] acetaminop 5/325] hen. phenol No Notes: Memoria 03-17 Chlorasept l 20:08: ic [place] (Same as: Chlorasept ic, Sore Throat [place]) WASTE: F/P - Black; E - Municipal Trash Bin Furosemide Yes 80 mg = 1 Me moria 80 MG Oral - tab, PO, l Tablet 15:44: BID, 0 [place] [Lasix] 00 Refill(s) amLODIPine Yes 10 mg = 1 Me moria 10 mg oral -09 tab, PO, l tablet 15:44: Daily, # [place] 00 30 tab, 0 Refill(s) carvedilol Yes 3.125 mg = M emoria 3.125 mg 03-17 1 tab, PO, l oral tablet 15:44: Q12H, # 60 [place] 00 tab, 0 Refill(s) calcium 2018 Yes 2,001 mg = Kojo lynn acetate 667 03-17 3 cap, PO, l MG Oral 15:44: TID, 0 [place] Capsule 00 Refill(s) Acetaminoph Yes 1 tab, [...] Notes: Memoria 03-17 porcine l 14:00: heparin [place] heparin No 10,000 Memoria 03-17 unit, 10 l 13:00: mL, Route: DIALYSIS, Drug form: INJ, ONCALL, Dosing Weight 100.455, kg, Start date: 03/17/18 8:00:00 CDT, Duration: 1 doses or times Mannitol Yes Notes: Memoria 03-17 (Same as: l 12:41: Osmitrol) Infuse through 5 micron or smaller filter WASTE: F/P - Sink; E - Municipal Trash Bin Vancomycin No 2000 mg: Me moria 03-17 infuse l 12:00: over 2.5 [place] 00 hours For adult patients only: Round to nearest 250 mg per Medical Staff approval MEDICATION WASTE Product Size: 1000 mg Product Wasted: ___ mg Sodium No 2,000 mL, Memori a Chloride 6-09 2000 l 0.9% 12:00: ml/hr, [place] (Bolus) IV 00 Infuse Over: 1 hr, Route: IV, 2,000, Drug form: INJ, ONCE, Priority: STAT, Dosing Weight 98.182 kg, Start date: 03/17/18 7:00:00 CDT, PRN Dialysis cefepime No Notes: Memoria 03-17 (Same As: l 12:00: Maxipime) MEDICATION WASTE Product Size: 1000 mg Product Wasted: ___ mg Saline No Notes: Memoria Flush 0.9% 03-17 (Same as: l 11:53: BD Posiflush) Acetaminoph No Notes: Do M emoria en 03-17 not exceed l 11:53: 4 gm/day. (Same as: Tylenol) Insulin No Notes: Memoria [...] 03-17 Route: IM, l 11:49: Drug form: PDR/INJ, PRN, Dosing Weight 98.182, [...] 04/16/18 6:48:00 CDT Zosyn No Notes: Memoria 03-17 (Same as: l 10:49: Zosyn) [place] 00 Dosing based on Piperacill in component MEDICATION WASTE Product Size: 4500 mg Product Wasted: ___ mg Vancomycin No 2001 mg: Me moria 6-09 infuse l 10:49: over 2.5 [place] 00 hours For adult [...] Memoria 3-15 (Same as: l 14:00: Lasix) [place] 00 May cause GI upset. Give with food or milk. calcitriol No 0.5 Memoria 0.5 mcg 3-14 microgram l oral 14:51: = 1 cap, [place] capsule 00 PO, Daily, # 30 cap, 0 Refill(s), Pharmacy: [facility] Ergocalcife Yes 50,000 Kojo lynn rol [id number] 3-14 IntlUnit = l UNT Oral 14:47: 1 cap, PO, Her meeks Capsule 00 qWeek, # 5 cap, 0 Refill(s), Pharmacy: [facility] Calcium No 2,000 mg = Kojo lynn Carbonate 3-14 4 tab, PO, l 500 MG 14:47: TID, # 168 [place] nn Chewable 00 tab, 0 Tablet Refill(s), Pharmacy: [facility] sevelamer No 2,400 mg = Me moria carbonate 3-14 3 tab, PO, l 800 mg oral 14:47: TID-Meals, Marlo tablet 00 # 270 tab, 0 Refill(s), Pharmacy: [facility] Furosemide No 80 mg, PO, M emoria 80 MG Oral 3-14 Daily, # l Tablet 14:47: 30 ea, 0 [place] [Lasix] 00 Refill(s), Pharmacy: [facility] 357 carvedilol No 3.125 mg = M emoria 3.125 mg 3-14 1 tab, PO, l oral tablet 14:47: Q12H, # 60 00 tab, 0 Refill(s), Pharmacy: [facility] 357 amLODIPine No 10 mg = 2 Me moria 5 mg oral 3-14 tab, PO, l tablet 14:47: Daily, # [place] 00 60 tab, 0 Refill(s), Pharmacy: [facility] Calcium No Notes: Memoria Gluconate 3-14 WASTE: [...] 3-12 WASTE: F/P l 10:53: - Sink; - Municipal Trash Bin Calcium No Notes: Memoria Gluconate 3-12 WASTE: F/P l 04:35: - Sink; E - Municipal Trash Bin RenaGel No Notes: Memoria 3-11 Same as: l 17:00: Renvela Lasix No Notes: Memoria 3-11 (Same as: l 14:00: Lasix) [place] 00 MEDICATION WASTE Product Size: 40 mg Product Wasted: ___ mg Venofer No Notes: Memoria 3-11 Each 5ml l 14:00: contains [place] 100mg elemental iron. Mix with NS Non-Formul heydi (Same as:Venofer ) Administer IV only. MEDICATION WASTE Product Size: 100 mg Product Wasted: ___ mg Calcium No Notes: Memoria Gluconate 12-17 WASTE: F/P l 11:35: - Sink; E [place] - Municipal Trash Bin Kayexalate No Notes: Memor ia 12-17 (sodium l 01:11: polystyren [place] 00 e sulfonate 15 gm/60 ml CANDACE) Shake well before use. (Same as: Kayexalate , SPS) sodium No Notes: Memoria bicarbonate 12-17 (sodium l 8.4% 01:11: bicarb [place] 00 8.4% (1 mEq/ml) 50 ml syringe) Amlodipine No Notes: Memor ia 3-10 (Same as: l 15:00: Norvasc) [place] Kayexalate No Notes: Memor ia 3-10 (sodium l 13:38: polystyren [place] 00 e sulfonate 15 gm/60 ml CANDACE) Shake well before use. (Same as: Kayexalate , SPS) Calcium No Notes: Memoria Gluconate 12-15 WASTE: F/P l 23:43: - Sink; E [place] - Municipal Trash Bin Dilaudid No Notes: Memoria 3- (Same as: l 21:38: Dilaudid) [place] 00 Morphine No Notes: Memoria 3- (Same l 19:02: as:MORPhin [place] 00 e Sulfate) Acetaminoph No 2 tabs, Mem oria en 300 MG / 12-15 PO, BID, 0 l Codeine 18:35: Refill(s) [place] nn Phosphate 00 60 MG Oral Tablet [Tylenol with Codeine #4] Alprazolam Yes 2 mg = 1 Mem oria 2 MG Oral 12-15 tab, PO, l Tablet 18:19: BID, PRN [place] [Xanax] 00 as needed for anxiety, 0 Refill(s) Amlodipine No 1 cap, PO, M emoria 10 MG / 3-09 TID, 0 l Benazepril 18:19: Refill(s) He rmann hydrochlori 00 de 20 MG Oral Capsule [Lotrel 07/28] lisinopril No 20 mg = 1 Me moria 20 mg oral - tab, PO, l tablet 18:19: Daily, 0 Refill(s) Calcium No Notes: [facility] Carbonate 12-15 (Same As: l 16:06: Tums) Calcium Carbonate 500 mg = 200 mg elemental calcium Dose = mg calcium carbonate ( mg elemental calcium) Calcitriol No Notes: [facility] ia 12-15 (Same As: l 16:06: Rocaltrol) Ondansetron No Notes: Kojo lynn 12-15 (Same as: l 14:31: Zofran) MEDICATION WASTE Product Size: 4 mg Product Wasted: ___ mg Acetaminoph No Notes: Do M emoria en - not exceed l 14:31: 4 gm/day. (Same as: Tylenol) Acetaminoph No Notes: Kojo lynn en 325 MG / 12-15 (Same as: l Hydrocodone 14:31: [place] nn Bitartrate 00 325/5) Do 5 MG Oral not exceed Tablet 4gm/day of acetaminop hen. Saline No Notes: [facility] Flush 0.9% 12-15 (Same as: l 12:30: BD Posiflush) Lasix No Notes: [facility] - (Same as: l 10:45: Lasix) MEDICATION WASTE Product Size: 40 mg Product Wasted: ___ mg Immunizations Ordered Immunization Filled Immunization Date Status Commen ts Source Name Name influenza virus 2020-07-15 Completed [facility] vaccine, inactivated 19:16:00 [facility] pneumococcal 2018-03-20 Completed [facility] 13-valent vaccine 21:53:00 [place] Vital Signs Vital Name Observation Time Observation Value Comments Source Heart Rate 2020-08-12 23:15:00 [facility] [place] Respitory Rate 2020-08-12 23:15:00 [facility] al [place] Systolic (mm Hg) 2020-08-12 23:15:00 [facility] [place] Diastolic (mm Hg) 2020-08-12 23:15:00 [facility] o[facility] [place] Temperature Oral (F) 2020-08-12 23:15:00 98.1 F [facility] [place] Temperature Oral (F) 2020-08-12 19:20:00 98.0 F [facility] [place] Heart Rate 2020-08-12 19:20:00 [facility] [place] Respitory Rate 2020-08-12 19:20:00 [facility] [place] Systolic (mm Hg) 2020-08-12 19:20:00 [facility] [place] Diastolic (mm Hg) 2020-08-12 19:20:00 [facility] [place] Respitory Rate 2020-08-12 19:00:00 [facility] [place] Systolic (mm Hg) 2020-08-12 19:00:00 [facility] [place] Diastolic (mm Hg) 2020-08-12 19:00:00 [facility] [place] Temperature Oral (F) 2020-08-12 14:00:00 97.7 F [facility] [place] Heart Rate 2020-08-12 14:00:00 [facility] [place] Temperature Oral (F) 2020-08-10 06:00:00 98.3 F [facility] [place] Heart Rate 2020-08-10 06:00:00 [facility] [place] Respitory Rate 2020-08-10 06:00:00 [facility] [place] Systolic (mm Hg) 2020-08-10 06:00:00 [facility] [place] Diastolic (mm Hg) 2020-08-10 06:00:00 [facility] [place] Temperature Oral (F) 2020-08-10 02:00:00 98.4 F [facility] [place] Heart Rate 2020-08-10 02:00:00 [facility] [place] Respitory Rate 2020-08-10 02:00:00 [facility] [place] Systolic (mm Hg) 2020-08-10 02:00:00 [facility] [place] Diastolic (mm Hg) 2020-08-10 02:00:00 [facility] [place] Temperature Oral (F) 2020-08-09 22:00:00 98.3 F [facility] [place] Heart Rate 2020-08-09 22:00:00 [facility] [place] Respitory Rate 2020-08-09 22:00:00 [facility] [place] Systolic (mm Hg) 2020-08-09 22:00:00 [facility] [place] Diastolic (mm Hg) 2020-08-09 22:00:00 [facility] [place] Height 2020-08-07 03:47:00 170.18 cm [facility] [place] Weight 2020-08-07 03:47:00 [facility] [place] BMI Calculated 2020-08-07 03:47:00 [facility] [place] Height 2020-08-06 18:59:00 152.4 cm [facility] [place] BMI Calculated 2020-08-06 18:59:00 [facility] [place] Weight 2020-08-06 18:59:00 [facility] [place] Respitory Rate 2020-07-24 16:17:00 [facility] [place] Systolic (mm Hg) 2020-07-24 16:17:00 [facility] [place] Diastolic (mm Hg) 2020-07-24 16:17:00 [facility] [place] Temperature Oral (F) 2020-07-24 16:17:00 98.0 F [facility] [place] Respitory Rate 2020-07-24 15:04:00 [facility] [place] Systolic (mm Hg) 2020-07-24 15:04:00 [facility] [place] Diastolic (mm Hg) 2020-07-24 15:04:00 [facility] [place] Heart Rate 2020-07-24 15:04:00 [facility] [place] Temperature Oral (F) 2020-07-24 15:04:00 97.9 F [facility] [place] Height 2020-07-24 14:45:00 170.18 cm [facility] [place] BMI Calculated 2020-07-24 14:45:00 [facility] [place] Weight 2020-07-24 14:45:00 [facility] [place] Heart Rate 2020-07-24 13:10:00 [facility] [place] Respitory Rate 2020-07-24 13:10:00 [facility] [place] Systolic (mm Hg) 2020-07-24 13:10:00 [facility] [place] Diastolic (mm Hg) 2020-07-24 13:10:00 [facility] [place] Height 2020-07-24 12:55:00 170.18 cm [facility] [place] BMI Calculated 2020-07-24 12:55:00 [facility] [place] Weight 2020-07-24 12:55:00 [facility] [place] Heart Rate 2020-07-24 12:55:00 [facility] [place] Temperature Oral (F) 2020-07-24 12:55:00 98.2 F [facility] [place] Heart Rate 2020-07-15 19:07:00 [facility] [place] Respitory Rate 2020-07-15 19:07:00 [facility] [place] Systolic (mm Hg) 2020-07-15 19:07:00 [facility] [place] Diastolic (mm Hg) 2020-07-15 19:07:00 [facility] [place] Temperature Oral (F) 2020-07-15 17:00:00 98.1 F [facility] [place] Heart Rate 2020-07-15 17:00:00 [facility] [place] Systolic (mm Hg) 2020-07-15 17:00:00 [facility] [place] Diastolic (mm Hg) 2020-07-15 17:00:00 [facility] [place] Respitory Rate 2020-07-15 17:00:00 [facility] [place] Temperature Oral (F) 2020-07-15 13:00:00 98.3 F [facility] [place] Heart Rate 2020-07-15 13:00:00 [facility] [place] Systolic (mm Hg) 2020-07-15 13:00:00 [facility] [place] Diastolic (mm Hg) 2020-07-15 13:00:00 [facility] [place] Temperature Oral (F) 2020-07-15 09:00:00 98.1 F [facility] [place] Respitory Rate 2020-07-15 09:00:00 [facility] [place] Height 2020-07-06 10:14:00 170.18 cm [facility] [place] BMI Calculated 2020-07-06 10:14:00 [facility] [place] Weight 2020-07-06 10:14:00 [facility] [place] Systolic (mm Hg) 2020-05-21 15:01:00 [facility] [place] Diastolic (mm Hg) 2020-05-21 15:01:00 [facility] [place] Heart Rate 2020-05-21 15:01:00 [facility] [place] Respitory Rate 2020-05-21 15:01:00 [facility] [place] Height 2020-05-21 13:15:00 170.18 cm [facility] [place] BMI Calculated 2020-05-21 13:15:00 [facility] [place] Weight 2020-05-21 13:15:00 [facility] [place] Systolic (mm Hg) 2020-05-21 13:15:00 [facility] [place] Diastolic (mm Hg) 2020-05-21 13:15:00 [facility] [place] Heart Rate 2020-05-21 13:15:00 [facility] [place] Respitory Rate 2020-05-21 13:15:00 [facility] [place] Temperature Oral (F) 2020-05-21 13:15:00 98.5 F [facility] [place] Systolic (mm Hg) 2020-03-23 14:05:00 [facility] [place] Diastolic (mm Hg) 2020-03-23 14:05:00 [facility] [place] Systolic (mm Hg) 2020-03-23 13:00:00 [facility] [place] Diastolic (mm Hg) 2020-03-23 13:00:00 [facility] [place] Temperature Oral (F) 2020-03-23 13:00:00 98.5 F [facility] [place] Heart Rate 2020-03-23 13:00:00 [facility] [place] Respitory Rate 2020-03-23 13:00:00 [facility] [place] Systolic (mm Hg) 2020-03-23 11:10:00 [facility] [place] Diastolic (mm Hg) 2020-03-23 11:10:00 [facility] [place] Respitory Rate 2020-03-23 11:10:00 [facility] [place] Heart Rate 2020-03-23 11:10:00 [facility] [place] Temperature Oral (F) 2020-03-23 11:10:00 98.4 F [facility] [place] Respitory Rate 2020-03-23 09:42:00 [facility] [place] Heart Rate 2020-03-23 09:42:00 [facility] [place] Temperature Oral (F) 2020-03-23 08:46:00 98.3 F [facility] [place] Height 2020-03-23 05:39:00 170.18 cm [facility] [place] BMI Calculated 2020-03-23 05:39:00 [facility] [place] Weight 2020-03-23 05:39:00 [facility] [place] Systolic (mm Hg) 2020-02-03 23:19:00 [facility] [place] Diastolic (mm Hg) 2020-02-03 23:19:00 [facility] [place] Respitory Rate 2020-02-03 23:19:00 [facility] [place] Heart Rate 2020-02-03 23:19:00 [facility] [place] Temperature Oral (F) 2020-02-03 23:19:00 98.6 F [facility] [place] Systolic (mm Hg) 2020-02-03 22:04:00 [facility] [place] Diastolic (mm Hg) 2020-02-03 22:04:00 [facility] [place] Respitory Rate 2020-02-03 22:04:00 [facility] [place] Heart Rate 2020-02-03 22:04:00 [facility] [place] Systolic (mm Hg) 2020-02-03 20:14:00 [facility] [place] Diastolic (mm Hg) 2020-02-03 20:14:00 [facility] [place] Respitory Rate 2020-02-03 20:14:00 [facility] [place] Heart Rate 2020-02-03 20:14:00 [facility] [place] Temperature Oral (F) 2020-02-03 20:14:00 98.5 F [facility] [place] Height 2020-02-03 19:22:00 170.18 cm [facility] [place] BMI Calculated 2020-02-03 19:22:00 [facility] [place] Weight 2020-02-03 19:22:00 [facility] [place] Temperature Oral (F) 2020-02-03 19:22:00 99.0 F [facility] [place] Temperature Oral (F) 2019-11-05 18:00:00 98.3 F [facility] [place] Heart Rate 2019-11-05 18:00:00 [facility] [place] Respitory Rate 2019-11-05 18:00:00 [facility] [place] Systolic (mm Hg) 2019-11-05 18:00:00 [facility] [place] Diastolic (mm Hg) 2019-11-05 18:00:00 [facility] [place] Temperature Oral (F) 2019-11-05 14:00:00 98.1 F [facility] [place] Heart Rate 2019-11-05 14:00:00 [facility] [place] Respitory Rate 2019-11-05 14:00:00 [facility] [place] Systolic (mm Hg) 2019-11-05 14:00:00 [facility] [place] Diastolic (mm Hg) 2019-11-05 14:00:00 [facility] [place] Respitory Rate 2019-11-05 12:36:00 [facility] [place] Temperature Oral (F) 2019-11-05 10:00:00 98.0 F [facility] [place] Heart Rate 2019-11-05 10:00:00 [facility] [place] Systolic (mm Hg) 2019-11-05 10:00:00 [facility] [place] Diastolic (mm Hg) 2019-11-05 10:00:00 [facility] [place] Height 2019-10-29 07:23:00 170.18 cm [facility] [place] Weight 2019-10-29 07:23:00 [facility] [place] BMI Calculated 2019-10-29 07:23:00 [facility] [place] Height 2019-10-29 01:03:00 170.18 cm [facility] [place] BMI Calculated 2019-10-29 01:03:00 [facility] [place] Weight 2019-10-29 01:03:00 [facility] [place] Temperature Oral (F) 2019-08-20 14:07:00 98.8 F [facility] [place] Heart Rate 2019-08-20 14:07:00 [facility] [place] Respitory Rate 2019-08-20 14:07:00 [facility] [place] Systolic (mm Hg) 2019-08-20 14:07:00 [facility] [place] Diastolic (mm Hg) 2019-08-20 14:07:00 [facility] [place] Systolic (mm Hg) 2019-08-20 12:15:00 [facility] [place] Diastolic (mm Hg) 2019-08-20 12:15:00 [facility] [place] Heart Rate 2019-08-20 12:15:00 [facility] [place] Temperature Oral (F) 2019-08-20 09:46:00 98.3 F [facility] [place] Heart Rate 2019-08-20 09:46:00 [facility] [place] Respitory Rate 2019-08-20 09:46:00 [facility] [place] Systolic (mm Hg) 2019-08-20 09:46:00 [facility] [place] Diastolic (mm Hg) 2019-08-20 09:46:00 [facility] [place] Temperature Oral (F) 2019-08-20 06:02:00 98.5 F [facility] [place] Respitory Rate 2019-08-20 06:02:00 [facility] [place] Height 2019-08-14 22:12:00 175.26 cm [facility] [place] Weight 2019-08-14 22:12:00 [facility] [place] BMI Calculated 2019-08-14 22:12:00 [facility] [place] Respitory Rate 2019-04-08 17:36:00 [facility] [place] Systolic (mm Hg) 2019-04-08 17:36:00 [facility] [place] Diastolic (mm Hg) 2019-04-08 17:36:00 [facility] [place] Temperature Oral (F) 2019-04-08 17:36:00 98.0 F [facility] [place] Heart Rate 2019-04-08 17:36:00 [facility] [place] Respitory Rate 2019-04-08 13:23:00 [facility] [place] Heart Rate 2019-04-08 13:23:00 [facility] [place] Temperature Oral (F) 2019-04-08 13:23:00 98.1 F [facility] [place] Systolic (mm Hg) 2019-04-08 13:23:00 [facility] [place] Diastolic (mm Hg) 2019-04-08 13:23:00 [facility] [place] Systolic (mm Hg) 2019-04-08 08:40:00 [facility] [place] Diastolic (mm Hg) 2019-04-08 08:40:00 [facility] [place] Respitory Rate 2019-04-08 08:40:00 [facility] [place] Heart Rate 2019-04-08 08:40:00 [facility] [place] Temperature Oral (F) 2019-04-08 08:40:00 98.0 F [facility] [place] Weight 2019-04-06 04:23:00 [facility] [place] BMI Calculated 2019-04-06 04:17:00 [facility] [place] Height 2019-04-06 04:17:00 167.64 cm [facility] [place] Weight 2019-04-06 04:17:00 [facility] [place] Respitory Rate 2018-07-24 20:59:00 [facility] [place] Systolic (mm Hg) 2018-07-24 20:59:00 [facility] [place] Diastolic (mm Hg) 2018-07-24 20:59:00 [facility] [place] Heart Rate 2018-07-24 20:59:00 [facility] [place] Temperature Oral (F) 2018-07-24 20:59:00 98.2 F [facility] [place] Temperature Oral (F) 2018-07-24 16:59:00 98.3 F [facility] [place] Heart Rate 2018-07-24 16:59:00 [facility] [place] Respitory Rate 2018-07-24 16:59:00 [facility] [place] Systolic (mm Hg) 2018-07-24 16:59:00 [facility] [place] Diastolic (mm Hg) 2018-07-24 16:59:00 [facility] [place] Systolic (mm Hg) 2018-07-24 16:33:00 [facility] [place] Diastolic (mm Hg) 2018-07-24 16:33:00 [facility] [place] Temperature Oral (F) 2018-07-24 16:33:00 98.2 F [facility] [place] Respitory Rate 2018-07-24 16:33:00 [facility] [place] Heart Rate 2018-07-24 16:33:00 [facility] [place] Weight 2018-07-22 11:03:00 [facility] [place] BMI Calculated 2018-07-22 11:03:00 [facility] [place] Height 2018-07-22 11:03:00 170.18 cm [facility] [place] BMI Calculated 2018-07-22 01:54:00 [facility] [place] Height 2018-07-22 01:54:00 170.18 cm [facility] [place] Weight 2018-07-22 01:54:00 [facility] [place] Respitory Rate 2018-07-21 02:35:00 [facility] [place] Temperature Oral (F) 2018-07-21 02:35:00 98.6 F [facility] [place] Systolic (mm Hg) 2018-07-21 02:35:00 [facility] [place] Diastolic (mm Hg) 2018-07-21 02:35:00 [facility] [place] Respitory Rate 2018-07-20 23:36:00 [facility] [place] Systolic (mm Hg) 2018-07-20 23:36:00 [facility] [place] Diastolic (mm Hg) 2018-07-20 23:36:00 [facility] [place] Systolic (mm Hg) 2018-07-20 22:37:00 [facility] [place] Diastolic (mm Hg) 2018-07-20 22:37:00 [facility] [place] Respitory Rate 2018-07-20 22:37:00 [facility] [place] Heart Rate 2018-07-20 22:37:00 [facility] [place] Temperature Oral (F) 2018-07-20 22:37:00 97.7 F [facility] [place] Height 2018-07-20 22:37:00 170.18 cm [facility] [place] BMI Calculated 2018-07-20 22:37:00 [facility] [place] Weight 2018-07-20 22:37:00 [facility] [place] BMI Calculated 2018-05-23 15:20:00 [facility] [place] Weight 2018-05-23 15:20:00 [facility] [place] Respitory Rate 2018-05-23 15:20:00 [facility] [place] Heart Rate 2018-05-23 15:20:00 [facility] [place] Height 2018-05-23 15:20:00 170 cm [facility] [place] Systolic (mm Hg) 2018-05-23 15:20:00 [facility] [place] Diastolic (mm Hg) 2018-05-23 15:20:00 [facility] [place] Systolic (mm Hg) 2018-04-15 21:25:00 [facility] [place] Diastolic (mm Hg) 2018-04-15 21:25:00 [facility] [place] Respitory Rate 2018-04-15 16:40:00 [facility] [place] Heart Rate 2018-04-15 16:40:00 [facility] [place] Systolic (mm Hg) 2018-04-15 16:40:00 [facility] [place] Diastolic (mm Hg) 2018-04-15 16:40:00 [facility] [place] Temperature Oral (F) 2018-04-15 16:40:00 98.2 F [facility] [place] Heart Rate 2018-04-15 13:15:00 [facility] [place] Temperature Oral (F) 2018-04-15 13:15:00 98.0 F [facility] [place] Systolic (mm Hg) 2018-04-15 13:15:00 [facility] [place] Diastolic (mm Hg) 2018-04-15 13:15:00 [facility] [place] Respitory Rate 2018-04-15 13:15:00 [facility] [place] Temperature Oral (F) 2018-04-15 09:31:00 98.2 F [facility] [place] Heart Rate 2018-04-15 09:31:00 [facility] [place] Respitory Rate 2018-04-15 09:31:00 [facility] [place] Weight 2018-04-15 07:53:00 [facility] [place] Weight 2018-04-14 23:25:00 [facility] [place] Height 2018-04-14 23:25:00 172.72 cm [facility] [place] BMI Calculated 2018-04-14 23:25:00 [facility] [place] Systolic (mm Hg) 2018-03-20 16:07:00 [facility] [place] Diastolic (mm Hg) 2018-03-20 16:07:00 [facility] [place] Respitory Rate 2018-03-20 16:07:00 [facility] [place] Heart Rate 2018-03-20 16:07:00 [facility] [place] Temperature Oral (F) 2018-03-20 16:07:00 98.4 F [facility] [place] Systolic (mm Hg) 2018-03-20 12:44:00 [facility] [place] Diastolic (mm Hg) 2018-03-20 12:44:00 [facility] [place] Respitory Rate 2018-03-20 12:44:00 [facility] [place] Heart Rate 2018-03-20 12:44:00 [facility] [place] Temperature Oral (F) 2018-03-20 12:44:00 98.3 F [facility] [place] Respitory Rate 2018-03-20 08:46:00 [facility] [place] Temperature Oral (F) 2018-03-20 08:46:00 98.3 F [facility] [place] Heart Rate 2018-03-20 08:46:00 [facility] [place] Systolic (mm Hg) 2018-03-20 08:46:00 [facility] [place] Diastolic (mm Hg) 2018-03-20 08:46:00 [facility] [place] BMI Calculated 2018-03-17 12:01:00 [facility] [place] Weight 2018-03-17 12:01:00 [facility] [place] Height 2018-03-17 12:01:00 167.64 cm [facility] [place] Weight 2018-03-17 07:27:00 [facility] [place] Temperature Oral (F) 2018-01-23 03:30:00 98.2 F [facility] [place] Respitory Rate 2018-01-23 03:30:00 [facility] [place] Systolic (mm Hg) 2018-01-23 03:30:00 [facility] [place] Diastolic (mm Hg) 2018-01-23 03:30:00 [facility] [place] Respitory Rate 2018-01-23 01:48:00 [facility] [place] Heart Rate 2018-01-23 01:48:00 [facility] [place] Systolic (mm Hg) 2018-01-23 01:48:00 [facility] [place] Diastolic (mm Hg) 2018-01-23 01:48:00 [facility] [place] Temperature Oral (F) 2018-01-23 00:14:00 98.2 F [facility] [place] Respitory Rate 2018-01-23 00:14:00 [facility] [place] Systolic (mm Hg) 2018-01-23 00:14:00 [facility] [place] Diastolic (mm Hg) 2018-01-23 00:14:00 [facility] [place] Heart Rate 2018-01-23 00:14:00 [facility] [place] BMI Calculated 2018-01-23 00:14:00 [facility] [place] Height 2018-01-23 00:14:00 165.1 cm [facility] [place] Weight 2018-01-23 00:14:00 [facility] [place] Systolic (mm Hg) 2017-12-20 12:31:00 [facility] [place] Diastolic (mm Hg) 2017-12-20 12:31:00 [facility] [place] Temperature Oral (F) 2017-12-20 12:31:00 98.0 F [facility] [place] Respitory Rate 2017-12-20 12:31:00 [facility] [place] Heart Rate 2017-12-20 12:31:00 [facility] [place] Systolic (mm Hg) 2017-12-20 05:00:00 [facility] [place] Diastolic (mm Hg) 2017-12-20 05:00:00 [facility] [place] Temperature Oral (F) 2017-12-20 05:00:00 98 F [facility] [place] Heart Rate 2017-12-20 05:00:00 [facility] [place] Respitory Rate 2017-12-20 05:00:00 [facility] [place] Temperature Oral (F) 2017-12-20 01:00:00 97.6 F [facility] [place] Heart Rate 2017-12-20 01:00:00 [facility] [place] Systolic (mm Hg) 2017-12-20 01:00:00 [facility] [place] Diastolic (mm Hg) 2017-12-20 01:00:00 [facility] [place] Respitory Rate 2017-12-20 01:00:00 [facility] [place] BMI Calculated 2017-12-15 16:46:00 [facility] [place] Weight 2017-12-15 16:46:00 [facility] [place] Height 2017-12-15 16:46:00 170.18 cm [facility] [place] Height 2017-12-15 16:11:00 170.18 cm [facility] [place] Weight 2017-12-15 11:31:00 [facility] [place] Procedures Procedure Date / Time Performed Performing Clinician [facility] e Dialysis access site care [facility] [place] Knee maneuver [facility] [place] Shoulder manipulation [facility] Encounters Start End Encounter Admission Attending Care Care Encounter Source Date/Time Date/Time Type Type Clinicians Facility Department ID 2019-04-05 Inpatient E [facility] [id number] [facility] 20:14:00 2019-04-05 [id number] 18:31:48 2021-04-22 2021-04-[id number] 10:30:14 11:33:56 [place] [id number] [facility] [id number] 2020-08-06 2020-08-13 Inpatient [facility] [id number] [facility] 18:41:30 00:50:00 [facility] [place] [facility] 2020-08-06 2020-08-12 Outpatient Brien [facility] [id number] 13:41:30 18:50:00 John 12 2020-08-06 2020-08-06 Inpatient E [facility] MED [id number] [facility] 20:29:00 18:33:00 2020-08-06 2020-08-06 Outpatient Paulo Hogn [facility] [id number] 13:41:30 13:41:30 Bulmaro 12 2020-07-24 2020-07-24 Emergency [facility] [id number] [facility] 12:53:57 16:22:00 [facility] [place] 11 [facility] 2020-07-24 2020-07-24 Outpatient Hugo [facility] [id number] 07:53:57 11:22:00 Cecy 11 2020-07-24 2020-07-24 Emergency E [facility] [id number] [facility]BL 07:53:00 07:53:00 2020-07-06 2020-07-15 [facility]patient [facility] [id number] [facility] 10:06:46 22:00:00 [facility] [place] 10 [facility] 2020-07-06 2020-07-15 Outpatient Brien, [facility]PL MHPL [id number] 05:06:46 17:00:00 John 10 2020-07-06 2020-07-06 Inpatient E [facility] MED [id number] [facility]BL 08:50:00 05:06:00 2020-05-21 2020-05-21 Emergency [facility] [id number] [facility] 13:09:59 15:59:00 [facility] [place] 09 [facility] 2020-05-21 2020-05-21 Outpatient Elmer MHPL MHPL [id number] 08:09:59 10:59:00 Brenden Magnolia Leon 2020-05-21 2020-05-21 Emergency E [facility]BL [facility]BL [id number] MHBL 08:09:00 08:09:00 2020-03-23 2020-03-23 Emergency [facility] [id number] [facility] 05:18:16 15:31:00 [facility] [place] 08 [facility] 2020-03-23 2020-03-23 Outpatient Jimbo, MHPL MHPL [id number] 00:18:16 10:31:00 Werner Tim 08 2020-03-23 2020-03-23 Emergency E [facility]BL [facility]BL [id number] MHBL 00:18:00 00:18:00 2020-02-03 2020-02-03 Emergency [facility] [id number] [facility] 19:07:14 23:44:00 [facility] [place] 07 [facility] 2020-02-03 2020-02-03 Outpatient Kaushik, MHPL MHPL [id number] 14:07:14 18:44:00 Michel French 07 2020-02-03 2020-02-03 Emergency E [facility]BL [id number] MHBL 14:07:00 14:07:00 2019-10-29 2019-11-06 [facility] [id number] [facility] 00:57:20 02:15:00 [facility] [place] 06 [facility] 2019-10-28 2019-11-05 Outpatient Josué, MHPL MHPL [id number] 18:57:20 20:15:00 Redd 06 2019-10-30 2019-10-28 Inpatient E [facility] MED [id number] MHBL 14:55:00 23:23:00 2019-08-16 2019-08-20 [facility]patient [facility] [id number] [facility] 00:36:00 19:40:00 [facility] [place] 10 [facility] 2019-08-15 2019-08-20 Outpatient Lillie MHPL MHPL [id number] 18:36:00 13:40:00 Debi 10 2019-08-15 2019-08-14 Inpatient U [facility]BL MED [id number] MHBL 18:36:00 15:56:00 2019-04-06 2019-04-08 [facility]patient [facility] [id number] [facility] 01:14:00 21:53:00 [facility] [place] 79 [facility] 2019-04-05 2019-04-08 Outpatient Charles MHPL MHPL [id number] 20:14:00 16:53:00 Bandar 79 2018-07-22 2018-07-24 Inpatient [facility] [id number] [facility] 01:45:00 23:05:00 [facility] [place] 05 [facility] 2018-07-21 2018-07-24 Outpatient Lalyquangaartivania MHPL MHPL [id number] 20:45:00 18:05:00 , Roger Herrear 2018-07-20 2018-07-21 Emergency [facility] [id number] [facility] 22:20:00 02:38:00 [facility] [place] 04 [facility] 2018-07-20 2018-07-20 Outpatient Vishnyaadonisa MHPL MHPL [id number] 17:20:00 21:38:00 Cecy 2018-05-23 2018-06-22 OP nullFlavo Transplant [id number] [facility] 14:47:00 04:59:00 Transplant r Center 00 [facility] 2018-05-23 2018-06-21 Outpatient De [facility] [id number] 09:47:00 23:59:00 Roosevelt Ledezma 2018-04-14 2018-04-15 Observatio [facility] [id number] [facility] 23:17:00 21:55:00 n dean Sellers 03 [facility] 2018-04-14 2018-04-15 Outpatient Ajibade, PL [place] [id number] 18:17:00 16:55:00 David 03 Nasrin 2018-03-17 2018-03-20 [facility]patient [facility] [id number] [facility] 07:25:00 22:12:00 [place] 02 [facility] 2018-03-17 2018-03-20 Outpatient Sumner, PL PL [id number] 02:25:00 17:12:00 [place] 2018-01-22 2018-01-23 Emergency [facility] [id number] [facility] 23:36:00 03:58:00 [place] 01 [facility] 2018-01-22 2018-01-22 [place] [id number] 18:36:00 22:58:00 Osvaldo Lee 2017-12-15 2017-12-20 Inpatient [facility] [id number] [facility] 11:29:00 18:55:00 [facility] [place] 00 [facility] 2017-12-15 2017-12-20 Outpatient Josué, PL [facility] [id number] 05:29:00 13:55:00 Peter 00 Results Test Description Test Time Test Comments Results Result Comments Source CHEM PANEL 2020-08-12 79 [facility] 09:42:00 [place] CHEM PANEL 2020-08-12 21 [facility] 09:42:00 [place] CHEM PANEL 2020-08-12 7.93 [facility] 09:42:00 [place] CHEM PANEL 2020-08-12 139 [facility] 09:42:00 [place] CHEM PANEL 2020-08-12 3.2 [facility] 09:42:00 [place] CHEM PANEL 2020-08-12 104 [facility] 09:42:00 [place] CHEM PANEL 2020-08-12 27 [facility] 09:42:00 [place] CHEM PANEL 2020-08-12 8.8 [facility] 09:42:00 [place] CHEM PANEL 2020-08-12 11.2 [facility] 09:42:00 [place] CHEM PANEL 2020-08-12 7 [facility] 09:42:00 [place] HEMATOLOGY 2020-08-12 4.7 [facility] 09:42:00 [place] HEMATOLOGY 2020-08-12 1.2 [facility] 09:42:00 [place] HEMATOLOGY 2020-08-12 0.2 [facility] 09:42:00 [place] HEMATOLOGY 2020-08-12 0.2 [facility] 09:42:00 [place] HEMATOLOGY 2020-08-12 71.0 [facility] 09:42:00 [place] HEMATOLOGY 2020-08-12 2.0 [facility] 09:42:00 [place] HEMATOLOGY 2020-08-12 18.0 [facility] 09:42:00 [place] HEMATOLOGY 2020-08-12 3.0 [facility] 09:42:00 [place] HEMATOLOGY 2020-08-12 3.0 [facility] 09:42:00 [place] HEMATOLOGY 2020-08-12 2.0 [facility] 09:42:00 [place] HEMATOLOGY 2020-08-12 1.0 [facility] 09:42:00 [place] HEMATOLOGY 2020-08-12 0.0 [facility] 09:42:00 [place] HEMATOLOGY 2020-08-12 1 [facility] 09:42:00 [place] HEMATOLOGY 2020-08-12 Normal [facility] 09:42:00 (08/12/20 3:42 [place] AM) HEMATOLOGY 2020-08-12 Normal [facility] 09:42:00 (08/12/20 3:42 [place] AM) HEMATOLOGY 2020-08-12 09:42:00 Test Item Value Reference Range Interpretation Comme nts Tot Cell Ct (test code = Tot Cell Ct) 100 1 [facility] [id number] 09:42:00Moderate *ABN*(08/12/20 3:42 AM) [facility] EbzhrvaSOSMRLFNIT8107-13-35 09:42:006.4[facility] 2020-08-12 09:42:003.02[facility] KvziipoPNSZIYWVPX7058-04-51 09:42:009.0[facility] BolztltPKNKZSXSPS7761-30-47 09:42:0025.9[facility] LrtwvckTNAITTMWHO5347-42-07 09:42:0085.7[facility] EyixihdKJSPXAPDHB1872-82-14 09:42:00 Test Item Value Reference Range Interpretation Comments MCH (test code = MCH) 30.0 pg 27.0-31.0 [facility] PbfrhewASBLTCQIMP6264-08-22 09:42:0034.9[facility]annHEMATOLOGY 2020-08-12 09:42:0014.8[facility] HskbvpoROLEJQDYKO4307-30-49 09:42:17194Ylxqqjms HphepweXFAYYAFGTL5810-86-18 09:42:007.0[facility]annCHEM RZKJH7484-11-61 09:35:0080[facility]annCHEM LRENY7293-25-12 09:35:0013[facility]annCHEM XSUEV3449-94-23 09:35:005.51[facility]annCHEM EKDKK1492-31-22 09:35:05046 [facility]annCHE[facility] NWFQL7263-66-28 09:35:003.2[facility]annCHEM PANEL 2020-08-11 09:35:01321Exvmjpdg HermannCHEM AGFPU0114-17-53 09:35:0028[facility]annCHEM ANHXJ8871-54-47 09:35:008.4[facility]annCHEM VCOLF4237-99-32 09:35:0010.2[facility]annCHEM TJCFH1555-48-19 09:35:0010[facility] JSYCAWAWDL9409-21-02 09:35:0068.4[facility] DtrfuxbOJNCYIXIIW3809-01-77 09:35:00 17.8[facility] CvazjucHBPNSJIASF6731-89-75 09:35:009.3[facility]annHEMATOLOGY 2020-08-11 09:35:003.7[facility] YobelglOPPDWLHCTA2491-86-28 09:35:000.8[facility] ThlenjoTAZHEZBGOI6556-34-44 09:35:004.1[facility] VzbsngjEYRYWXJUNI0378-13-83 09:35:001.1[facility] OhjxftrPTOMHYNHIM5343-75-10 09:35:000.6[facility] ZWTFGYGGAO1344-88-12 09:35:000.2[facility] EnxhcpaPYCSXKYRHI4879-23-12 09:35:006.0 [facility] BecnejxNBEXPTPDPX0997-83-96 09:35:002.84[facility]MATOLOGY 2020-[facility]-11 09:35:008.1[facility] OxvbriyHXILNSQDTK4207-03-98 09:35:0024.2[facility] FughsadBHQUPAAJYX4618-86-20 09:35:0085.3[facility] YxuagaiFRHQLDGCPR4078-29-64 09:35:00 Test Item Value Reference Range Interpretation Comments MCH (test code = MCH) 28.7 pg 27.0-31.0 [facility] IlemehaCHDMTBRXPJ5421-71-65 09:35:0033.6[facility]annHEMATOLOGY 2020-08-11 09:35:0014.5[facility] AjwtbpxTBNQTIDBLE5069-75-53 09:35:21715Olfbmeve HwdawqbJMTJGBTJUP1362-72-40 09:35:007.4[facility]annCHEM FZFIQ5811-50-55 09:39:92740Kjvzzwdi HermannCHEM VSBNT9835-24-25 09:39:0021[facility]annCHEM NRTQN0877-31-46 09:39:006.77[facility]annCHEM BXIUT1478-82-40 09:39:17207 [facility]annCHE[facility] GANZI6578-38-05 09:39:003.5[facility]annCHEM PANEL 2020-08-10 09:39:67957Ehwlqcvi HermannCHEM IRLFA4727-24-33 09:39:0029[facility]annCHEM ECXRJ9575-03-56 09:39:009.5[facility]annCHEM XAOTQ9555-80-24 09:39:007.9[facility]annCHEM OQTHQ3033-93-62 09:39:008[facility] ZKOAAKRUJM8292-78-89 09:39:003.8[facility] IkktrdtBXDXTQLOQM7882-64-67 09:39:001.1 [facility] PqlvgwuUPARFBOLIN5705-97-05 09:39:000.2[facility]annHEMATOLOGY 2020-08-10 09:39:000.4[facility] SeitqtpARENHDMCNQ0827-17-52 09:39:0064.0[facility] OfkzlpiGSJSGUCRER9190-62-51 09:39:002.0[facility] SmbixmxWALQKHXUHU8058-76-10 09:39:0020.0[facility] KsbrgzwSHCGIHEKJZ2221-03-63 09:39:004.0[facility] SHNGDSFFHW4765-17-96 09:39:007.0[facility] LvfcmlvMKUMMHFDVE0422-05-86 09:39:003.0 [facility] RmigrxhRFEPJCFFGT7671-55-00 09:39:000.0[facility]annHEMATOLOGY 2020-08-10 09:39:001[facility] MnjttaeVXRQVCNXBS3881-60-91 09:39:00Normal (08/10/20 3:39 AM)[facility] AvtimhrWJDCYVVKLM2611-25-86 09:39:00Normal (08/10/20 3:39 AM) [facility] ZycfnmtNKBDVYAISJ7177-64-16 09:39:005.7[facility]annHEMATOLOGY 2020-08-10 09:39:002.61[facility] UpahoqxRBELBNJNON7151-52-99 09:39:007.5[facility] SpgfopsPDVYNSBNAU1000-60-29 09:39:0022.3[facility] FvpsqrwCZZRPIYTZP8374-48-60 09:39:0085.6[facility] KcvzowpAVTOZOMBKP2988-46-80 09:39:00 Test Item Value Reference Range Interpretation Comments MCH (test code = MCH) 28.8 pg 27.0-31.0 [facility] IdbmttxBMUGFAMSPC1178-70-77 09:39:0033.6[facility]annHEMATOLOGY 2020-08-10 09:39:0013.9[facility] AjuzeltFIUUWMBAKG5482-32-80 09:39:95365Mjklqyvr EqeiryiPETFWASBHQ8732-89-36 09:39:007.5[facility] LpyionbVMTOBQIHCS6466-17-40 16:40:000.6[facility] PcgoppuSLFCPEMQKV6287-57-44 16:40:005.7[facility] QUGIEIYPAP0553-45-44 16:40:002.82[facility] SjyqukuUFZLEWIMYH2070-90-32 16:40:00 8.0[facility] IcxsxcnIVQWJHISEM3741-94-89 16:40:0024.2[facility]annHEMATOLOGY 2020-08-09 16:40:0085.8[facility] AjewkdpWFGWQPHZWC2232-13-82 16:40:00 Test Item Value Reference Range Interpretation Comments MCH (test code = MCH) 28.6 pg 27.0-31.0 [facility] SibfnlrFWWVNPJUSI4181-17-98 16:40:0033.3[facility]annHEMATOLOGY 2020-08-09 16:40:0014.1[facility] JkjpnmkJKABMQXCQA8960-24-98 16:40:54869Pyfcajpv PcltdrhAGYQGGMEHU6447-58-81 16:40:007.2[facility] TncquivXYRCHMQWDS0348-68-66 16:40:0072.6[facility] NgxwbmxJZUQUHWLWL7571-46-26 16:40:0014.6[facility] MKYPCJYOXZ2051-59-71 16:40:007.8[facility] AmytyqsKGGEQVSPME6089-63-10 16:40:004.4 [facility] OzcdseqNNGOMBCZOY1581-71-15 16:40:004.2[facility]annHEMATOLOGY 2020-08-09 16:40:000.8[facility] UgwrxtfCELYBXNJWL0944-64-96 16:40:000.4[facility] BnzflnjZWTPPJDEZD6949-87-58 16:40:000.2[facility] AjnuwiqMWMNDTNVHA4696-19-59 16:40:007[facility]annCHEM QUHTA2734-92-62 14:48:004.2[facility]annCHEM OFIWX7121-10-26 14:48:001.3[facility]annCHEM XHXHX4349-29-04 14:48:0014 [facility]annCHE[facility] ONFNV0966-27-08 14:48:0017[facility]annCHEM PANEL 2020-08-09 14:48:0092[facility]annCHEM POVCE0531-67-94 14:48:000.5[facility]annCHEM RMHDH8832-32-06 14:48:00 Test Item Value Reference Range Interpretation Comments B/C Ratio (test code = B/C Ratio) 3 1 6-25 [facility]annCHE[facility] MRBUY0206-25-60 14:48:002.9[facility]annCHEM PANEL 2020-08-09 14:48:00 Test Item Value Reference Range Interpretation Comments A/G Ratio (test code = A/G Ratio) 0.4 1 0.7-1.6 [facility]annCHE[facility] OOJDX4061-13-92 14:48:001.8[facility]annCHEM PANEL 2020-08-09 14:48:0070[facility]annCHEM HPFVO4740-04-50 14:48:0025[facility]annCHEM RXMSI4707-06-25 14:48:008.85[facility]annCHEM PZHON8909-40-07 14:48:67628Icjpbvjf HermannCHEM GLRJC9854-62-18 14:48:004.0[facility]annCHEM BDHFO1211-74-28 14:48:76598Uvyafduv HermannCHEM BWNBH5667-77-32 14:48:0030 [facility]CHE[facility] BYXMW6726-55-11 14:48:007.5[facility]annCHEM PANEL 2020-08-09 14:48:0013.0[facility]annCHEM QQAUM5872-20-19 14:48:006[facility] ZcelyuwAQNUMORSVA5513-75-41 10:41:007.6[facility] EiwgsxvAQWHMSMNFW2975-37-76 02:33:007.9[facility] HkvasopOUXRFYDTEL3790-69-43 20:10:0023.0[facility]annB[facility] WMHCPO9781-32-05 19:15:00Light Yellow (08/08/20 2:15 PM)[facility] GJCGQR8750-21-84 19:15:00Slight Cloudy (08/08/20 2:15 PM)[facility] GBUNLL6496-72-28 19:15:06285Hphrkapr HermannB[facility] LNOIEC1224-45-24 19:15:64975 [facility] KXEYGH4891-65-37 19:15:0018[facility] FLUIDS 2020-08-08 19:15:0010[facility] EVBHZO1779-75-24 19:15:0044[facility] DYJXXR9922-26-31 19:15:0026[facility] RTFSRG2337-96-28 19:15:002[facility] GGROHZ7642-76-10 19:15:00Abdomn (08/08/20 2:15 PM) [facility] KKBAVZI0275-45-26 15:28:09Product available 4(08/08/20 10:28 AM)[facility] XBFGUUY3814-65-97 14:41:00 Negative (08/08/20 9:41 AM)[facility] UpmtburCFMHTEGTVO7540-76-78 14:41:001.0 [facility] NqensldIYJWWEGFKT7880-47-52 14:41:009.0[facility]annHEMATOLOGY 2020-08-08 14:41:00See Note (08/08/20 9:41 AM)[facility]annHEMATOLOGY 2020-08-08 14:41:00Normal (08/08/20 9:41 AM)[facility] WzklebxOUDBOMRLAF2369-83-83 14:41:001+ *ABN*(08/08/20 9:41 AM)[facility] UmzvrtlVFMLTMKQXM5639-19-06 14:41:00 1+ *ABN*(08/08/20 9:41 AM)[facility] EvjwtcfOJKYHIEZIY4866-60-22 14:41:001+ (08/08/20 9:41 AM)[facility] VtybkbqNYJOFGGMWW3501-76-97 14:41:00Moderate *ABN*(08/08/20 9:41 AM)[facility] OnpjkjuGLQKBJZJYN1160-17-11 14:41:006.0[facility] PfikrfhRPXHRMOGVT8572-36-58 14:41:002.32[facility] AtjtbhmDRWKSCAKHJ2806-27-28 14:41:0019.8[facility] VuvnmzxPWDIGLRJQN2899-34-37 14:41:0085.6[facility] SNPZSDOPFN7913-01-37 14:41:00 Test Item Value Reference Range Interpretation Comments MCH (test code = MCH) 29.0 pg 27.0-31.0 [facility] WokuyjkJMGNDFYZIV3191-25-44 14:41:0033.8[facility]annHEMATOLOGY 2020-08-08 14:41:0013.9[facility] OjosnqqJLSDYICSGY8529-80-82 14:41:25751Awqkchfv EzprsfjGWXFMUBGEI2352-88-76 14:41:006.8[facility] FtzpopxNRHMQIGMFB3840-15-98 14:41:004.1[facility] CxhkkgcDRNJZYTUYI7310-01-00 14:41:001.4[facility] YNFFICASHO4627-67-25 14:41:000.1[facility] RonqeecNDNYMIBFTJ4909-54-17 14:41:000.4 [facility] FnpyognLQEGQZLZCU9175-33-10 14:41:0068.0[facility]annHEMATOLOGY 2020-08-08 14:41:0014.0[facility] NkoghyjRDRRPJCOZT2389-56-32 14:41:002.0[facility] EoztuowRZZSWOJTJD8853-78-92 14:41:006.0[facility] HermannCHEM UBHOK1616-38-75 08:42:004.4[facility]annCHEM INBWP7872-05-04 08:42:0080[facility]annCHEM DGTRX8977-46-44 08:42:0034[facility]annCHEM MXTQN3389-97-74 08:42:0010.90 [facility]annCHE[facility] GQMII4518-61-26 08:42:95842Bosvbpot HermannCHEM PANEL 2020-08-08 08:42:003.[facility] HermannCHEM EESDO3007-70-36 08:42:0099[facility]annCHEM SGYNA1229-02-52 08:42:0033[facility]annCHEM QWHAO6834-75-01 08:42:008.1[facility]annCHEM WJCRG4021-31-89 08:42:009.[facility]annCHEM YUQNX5138-77-34 08:42:005[facility] PemqhswYHFXRFQIGU3363-47-01 08:42:000.6 [facility] FhiyukeTGGDHRNRLW2331-17-45 08:42:006.7[facility]annHEMATOLOGY 2020-08-08 08:42:002.53[facility] GowwlygECHWJBONGN2886-88-31 08:42:0084.8[facility] QfjbhcrBRNNSVVRYE6942-91-51 08:42:00 Test Item Value Reference Range Interpretation Comments MCH (test code = MCH) 28.5 pg 27.0-31.0 [facility] AjwupheYFVJHADUWS0281-39-97 08:42:0033.6[facility]annHEMATOLOGY 2020-08-08 08:42:0014.4[facility] AphdoikBCVMCHJNWG0309-51-86 08:42:91263Jcednqli UpfiuqtPKJXCAMHJI3257-03-15 08:42:007.0[facility] EmsullvVMVQVYMPFG5328-93-91 08:42:0071.1[facility] JgiluodLGQXIMXPKV4197-87-38 08:42:0016.3[facility] DEKDUMMUFH9884-40-94 08:42:008.0[facility] IfginixDXUWWYXKTM9489-07-28 08:42:004.0 [facility] UoktbaaOIZZOSHHRR4508-26-70 08:42:004.7[facility]annHEMATOLOGY 2020-08-08 08:42:001.1[facility] DpptrbfELQVJPTODR0895-85-16 08:42:000.5[facility] AbffuwkDZTQPYZTCP0322-71-90 08:42:000.3[facility] RbyvupgMFTNFDFXUO2119-89-27 02:01:00 Test Item Value Reference Range Interpretation Comments PT (test code = PT) 13.2 s 12.0-14.7 [facility] TsgidilLUEZTLKTUL0003-70-05 02:01:00 Test Item Value Reference Range Interpretation Comments INR (test code = INR) 1.00 1 0.85-1.17 [facility] IocvrqrFTZLDKUOCL5623-49-31 02:01:00 Test Item Value Reference Range Interpretation Comments PTT (test code = PTT) 29.8 s 22.9-35.8 [facility] YcmlijjXCYXVFIPVN7872-84-87 02:01:000.6[facility] HermannIMMUNOLOGY 2020-08-08 02:01:00Negative *NA*(08/07/20 9:01 PM)[facility]annCHEM PANEL 2020-08-07 21:23:0072[facility] HermannCHEM XAXRM7931-39-44 21:23:0028[facility] HermannCHEM GORFS1416-40-86 21:23:009.63[facility]annCHEM EMNWV5869-92-26 21:23:30152Cjvvnwvf HermannCHEM TXZHW8638-95-28 21:23:003.6[facility]annCHEM OYATF1421-93-01 21:23:0099[facility]annCHEM XODLO8511-38-55 21:23:0032 [facility]annCHE[facility] TQSPI0971-45-05 21:23:009.6[facility]annCHEM PANEL 2020-08-07 21:23:008.3[facility] HermannCHEM MZPIC5297-77-49 21:23:005[facility] NbvorftNEEYGIODSY8952-02-01 15:21:00Not Detected (08/07/20 10:21 AM)[facility] HermannCARDIAC IVEDYSR3697-37-57 08:08:0050[facility] HermannCHEM DMZCQ2159-10-31 08:08:00 Test Item Value Reference Range Interpretation Comments B/C Ratio (test code = B/C Ratio) 3 1 6- [facility]annCHEM GCNFD4043-85-60 08:08:004.5[facility]annCHEM PANEL 2020-08-07 08:08:001.4[facility] HermannCHEM QFOKZ7477-86-39 08:08:003.1[facility] HermannCHEM EIPRL3059-23-11 08:08:00 Test Item Value Reference Range Interpretation Comments A/G Ratio (test code = A/G Ratio) 0.5 1 0.7-1.6 [facility]annCHEM VWRAD6515-37-39 08:08:0015[facility]annCHEM PANEL 2020-08-07 08:08:0016[facility] HermannCHEM XCWBC7212-38-61 08:08:0082[facility] HermannCHEM QZPXX6422-41-10 08:08:000.4[facility] HermannCHEM RGUWG7940-59-64 08:08:001.7[facility]annCHEM YDCRQ4691-67-45 08:08:003.8[facility] TVSJOODAET7969-18-13 08:08:00 Test Item Value Reference Range Interpretation Comments PT (test code = PT) 13.0 s 12.0-14.7 [facility] QibtfqtGYHGVILFAC8068-09-33 08:08:00 Test Item Value Reference Range Interpretation Comments INR (test code = INR) 0.98 1 0.85-1.17 [facility] BxabckcAWHUFIBJTS9942-15-11 08:08:00 Test Item Value Reference Range Interpretation Comments PTT (test code = PTT) 30.5 s 22.9-35.8 [facility] VjkdmbnHEOEULHEYA6164-73-07 08:08:000.1[facility]annHEMATOLOGY 2020-08-07 02:04:000.1[facility] HermannCHEM LMEJY4410-33-64 01:34:004.8[facility] HermannCHEM NIPJN1958-76-89 01:34:001.6[facility] HermannCHEM ULGHU8201-99-45 01:34:003.2[facility] HermannCHEM OQNZZ7394-85-22 01:34:00 Test Item Value Reference Range Interpretation Comments A/G Ratio (test code = A/G Ratio) 0.5 1 0.7-1.6 [facility]annCHEM PRIFH2323-28-78 01:34:0014[facility] HermannCHEM PANEL 2020-08-07 01:34:0016[facility] HermannCHEM BEHCZ7091-54-70 01:34:0085[facility]annCHEM HQKTJ3190-20-99 01:34:000.4[facility]annCHEM FITVN9474-53-56 01:34:00<0.1[facility] HermannCARDIAC XSLFELC6647-58-50 22:24:000.03[facility] HermannCHEM XJPRK9288-88-55 22:24:001.6[facility] EdzknuwJEGSCZKRKZ4692-76-19 22:24:001.0[facility] GjccebjIMUTXHJAOB4781-44-31 22:24:001.0[facility] HZHGKVIQRS9394-26-45 22:24:00Moderate *ABN*(08/06/20 5:24 PM)[facility] EFLZVARMOM1541-68-31 22:24:00 Test Item Value Reference Range Interpretation Comments PT (test code = PT) 12.9 s 12.0-14.7 [facility] TslhptzMSJASSNWTK2323-42-80 22:24:00 Test Item Value Reference Range Interpretation Comments INR (test code = INR) 0.97 1 0.85-1.17 [facility] KsoxdkvLNGKBRCZOC0475-39-96 22:24:002.0[facility]annHEMATOLOGY 2020-08-06 22:24:000.0[facility] CxvggfcIQLEDRUECE9073-85-99 22:24:00Normal (08/06/20 5:24 PM)[facility] RfduavdLKKODRDCES4724-44-00 22:24:00Normal (08/06/20 5:24 PM)[facility] HermannCARDIAC SJRWSVY1902-20-00 13:32:000.03[facility] CHEM HIUGD3708-38-89 13:32:69681Nsxhllgt HermannCHEM SQAYE4749-40-41 13:32:0025 [facility]annCHEM PPGDW0672-51-80 13:32:009.66[facility]annCHEM PANEL 2020-07-24 13:32:14314Iqxyfsyb HermannCHEM REFBY0355-90-47 13:32:003.0[facility]annCHEM FAFZS8156-33-57 13:32:0091[facility]annCHEM FGIOO7054-72-12 13:32:0032[facility]annCHEM VXOVB4269-32-25 13:32:0012.0[facility]annCHEM SKVBG2380-19-60 13:32:008.7[facility]annCHEM DVISJ5106-88-02 13:32:00 Test Item Value Reference Range Interpretation Comments B/C Ratio (test code = B/C Ratio) 3 1 6-25 [facility]annCHEM HXOIB4011-33-51 13:32:004.9[facility]annCHEM PANEL 2020-07-24 13:32:001.5[facility]annCHEM IUOOH9069-37-53 13:32:003.4[facility]annCHEM LIJZC0760-24-45 13:32:00 Test Item Value Reference Range Interpretation Comments A/G Ratio (test code = A/G Ratio) 0.4 1 0.7-1.6 [facility]annCHEM SGGAN8916-47-73 13:32:0016[facility]annCHEM PANEL 2020-07-24 13:32:0022[facility]annCHEM UNIDU3991-02-02 13:32:0088[facility]annCHEM UORAE9469-78-58 13:32:000.5[facility]annCHEM QINPH2223-83-74 13:32:005[facility] WulrcyzADFNCBAKTC7883-87-27 13:32:006.2[facility] MQLFMZCZLH7564-01-10 13:32:002.89[facility] MxdycdjFWFTYLIGIO3585-01-12 13:32:00 8.4[facility] AdezvxqZWDLVZGTUQ0564-28-67 13:32:0024.1[facility]annHEMATOLOGY 2020-07-24 13:32:0083.3[facility] IkjkbbkBCHCRDLPUB8769-57-25 13:32:00 Test Item Value Reference Range Interpretation Comments MCH (test code = MCH) 29.0 pg 27.0-31.0 [facility] DdgamxoSCWNQQTILJ3828-13-42 13:32:0034.8[facility]annHEMATOLOGY 2020-07-24 13:32:0013.6[facility] XuiwfvwDIHXUIRIPN5103-78-49 13:32:66266Eabuksxv BppoeiyKBOHATOZCZ9614-03-74 13:32:006.6[facility] PwxtlkySLFOVVBIAB0813-17-88 13:32:0073.5[facility] JcjnqyeDLMFTEQMAD9817-71-96 13:32:0011.4[facility] JTPOCVQXQS3814-96-19 13:32:008.7[facility] UpxihchHRGMTPREXQ7207-82-85 13:32:005.4 [facility] YkualjnBQCHFSJRNT4244-72-88 13:32:001.0[facility] HermannHEMATOLOGY 2020-07-24 13:32:004.5[facility] XhhpqgyRBGPLQJELA4998-93-85 13:32:000.7[facility] TlaisqhOJKXWYCQKW4645-13-17 13:32:000.5[facility] PiiymekGSKNDBVFCP0584-94-41 13:32:000.3[facility] KlfgphpYUNNPUJXKK7079-48-01 13:32:000.1[facility] HermannCHEM MGHUW3329-63-55 08:13:17245Ptqbfply HermannCHEM VJFJK0714-26-73 08:13:0026 [facility]annCHEM XARGF2915-12-60 08:13:009.23[facility] HermannCHEM PANEL 2020-07-15 08:13:00880Dowtbxcy HermannCHEM BMDFO7218-84-66 08:13:003.8[facility] HermannCHEM AFEWQ2599-55-05 08:13:0097[facility] HermannCHEM FHJBI5919-07-34 08:13:0028[facility] HermannCHEM KRPBK4347-65-16 08:13:009.0[facility] HermannCHEM DZVCZ8197-37-65 08:13:0013.8[facility] HermannCHEM EBDXS7822-13-09 08:13:006 [facility] HermannMOLECULAR BXQNZXLFBC0804-56-92 22:34:00Negative (07/14/20 5:34 PM)[facility]annURINE AND SXCKH6988-72-79 22:34:00None Seen (07/14/20 5:34 PM) [facility]annCHEM LHGGA1765-64-87 08:37:79563Cxdjutzf HermannCHEM PANEL 2020-07-14 08:37:0030[facility] HermannCHEM RTZMS5257-57-22 08:37:009.56[facility] HermannCHEM DYESN3163-19-68 08:37:74602Vyicdbyx HermannCHEM NTJNT3454-61-49 08:37:003.4[facility] HermannCHEM JAHAX1946-25-45 08:37:0099[facility] HermannCHEM HMARP4085-93-62 08:37:0028[facility] HermannCHEM UNAOJ2147-93-33 08:37:008.6 [facility]annCHEM CWBEM5011-93-54 08:37:0012.4[facility] HermannCHEM PANEL 2020-07-14 08:37:005[facility]annBODY RDQVIP8075-23-77 01:30:00Light Yellow (07/13/20 8:30 PM)[facility]annB[facility] APFRQG3031-65-66 01:30:00Clear (07/13/20 8:30 PM)[facility]annB[facility] SDQYXC3837-81-36 01:30:00Colorless (07/13/20 8:30 PM)[facility]annB[facility] TSRJKO2327-45-94 01:30:57854Ecouvrlb HermannBODY FLUIDS 2020-07-14 01:30:73847Lnxscfwh [facility]annB[facility] BCPVXD3275-33-34 01:30:00[place] (07/13/20 8:30 PM)[facility]annB[facility] JRECPT5400-77-05 01:30:0023[facility]annBODY CEHLTB0139-62-70 01:30:0016[facility]annB[facility] GTOJNZ3706-56-45 01:30:0053[facility]annBODY PLLLHL2523-89-76 01:30:006[facility]annBODY FZZOJH9231-68-61 01:30:002[facility] HermannCHEM SMCDK8601-68-19 08:35:45833 [facility]annCHEM ERJIF9505-30-97 08:35:0029[facility] HermannCHEM PANEL 2020-07-13 08:35:009.77[facility] HermannCHEM ZRGCC4957-01-91 08:35:59528Nvxgnyxm HermannCHEM ZKDYU0897-64-19 08:35:003.4[facility] HermannCHEM NQOTM6567-81-57 08:35:0097[facility] HermannCHEM OTFPG4277-18-79 08:35:0031[facility] HermannCHEM JMDMU1210-94-13 08:35:008.8[facility] HermannCHEM BAETG2497-51-58 08:35:008.4 [facility]annCHEM CVCRY7937-22-00 08:35:005[facility]annBODY FLUIDS 2020-07-13 00:15:00Light Yellow (07/12/20 7:15 PM)[facility]annBODY FLUIDS 2020-07-13 00:15:00Clear (07/12/20 7:15 PM)[facility]annB[facility] XZVHLM6306-16-14 00:15:00Colorless (07/12/20 7:15 PM)[facility]annBODY BECCVX1464-81-86 00:15:62210Zsyjytmn HermannBODY ONRRDS2040-64-93 00:15:68325Mgdmnery [facility]annBODY TTTYCN8100-14-44 00:15:0027[facility]annB[facility] MFJABZ5174-71-60 00:15:0015 [facility]annB[facility] XKBAPC7615-92-46 00:15:0052[facility]annBODY FLUIDS 2020-07-13 00:15:003[facility]annBODY NVMKTQ3320-28-87 00:15:00Few (07/12/20 7:15 PM)[facility]annB[facility] SVQRYW1648-82-85 00:15:00See Note 4(07/12/20 7:15 PM)[facility]annBODY ROWQRU9597-61-89 00:15:00[place] (07/12/20 7:15 PM) [facility] VpibznpFHJADWAGMO1709-34-37 09:50:0074.0[facility] HermannHEMATOLOGY 2020-07-12 09:50:0014.8[facility] FymfjktYVVIMIFRFQ9275-53-48 09:50:007.1[facility] AewkrvzQBTSOLUYWG6508-49-93 09:50:003.5[facility] KbgolnySGNAVDEIUW3172-46-30 09:50:000.6[facility] ShsczicPCRSMZCQCC4649-62-25 09:50:004.9[facility] NVWQBIDLMF7568-82-38 09:50:001.0[facility] VykhnwgARNDHIHPAN9658-14-73 09:50:000.5 [facility] TbifjdwIVJGYSCQIV6366-85-49 09:50:000.2[facility] HermannHEMATOLOGY 2020-07-12 09:50:006.7[facility] WnkisehWOJSGTVQVL7458-80-47 09:50:002.86[facility] PzganesHEQUIJKGPQ3802-05-96 09:50:008.3[facility] BylvpgvWOULEPXTEX0034-70-58 09:50:0024.4[facility] DczlpnrWSRTYGVNJO7196-84-83 09:50:0085.1[facility] PVMRTNSNUD9265-57-82 09:50:00 Test Item Value Reference Range Interpretation Comments MCH (test code = MCH) 29.0 pg 27.0-31.0 [facility] JchwbuzAVKWEFEGHU9422-10-18 09:50:0034.1[facility]annHEMATOLOGY 2020-07-12 09:50:0014.1[facility] RnodzgyXFPXYWUWKK3099-51-42 09:50:93385Lkxezwev UvkxqjbFFEHTFOEUD8996-02-61 09:50:006.6[facility] PgssjbeVZKEOKNVOK5255-44-77 09:50:0013.1[facility]annBODY QAZRTU1213-00-92 00:50:00Light Yellow (07/11/20 7:50 PM)[facility] JJEDBX8793-49-44 00:50:00Slight Cloudy (07/11/20 7:50 PM)[facility] DQEONK4998-13-34 00:50:00Colorless (07/11/20 7:50 PM)[facility] VPOABK5842-96-05 00:50:83353Vkhqysqa [facility]annB[facility] FLUIDS 2020-07-12 00:50:0079[facility] NFTCCN3505-34-11 00:50:0053[facility] EQDRVD5709-06-63 00:50:0010[facility] ZBJDLM0693-23-41 00:50:0033[facility] STEYEK4756-60-87 00:50:003[facility] WTZQXO2611-24-95 00:50:001[facility] HENUYL0865-97-53 00:50:00[place] (07/11/20 7:50 PM)[facility] OmqentlGJHGKYCTPP5422-15-35 08:20:006.2[facility] DldnbfyPJXINKFJKE9902-75-23 08:20:002.74[facility] UqhehmgWJCUNFEZYN1078-42-99 08:20:008.0[facility] MikppqaENOTQRKZQJ8774-18-06 08:20:0023.1[facility] ULWFWOGOUC1394-66-75 08:20:0084.4[facility] MgverehFIALBEYOOM5668-70-26 08:20:00 Test Item Value Reference Range Interpretation Comments MCH (test code = MCH) 29.2 pg 27.0-31.0 [facility] BppuskwCSTZRLMZKE5657-84-01 08:20:0034.7[facility]annHEMATOLOGY 2020-07-11 08:20:0013.9[facility] XcqmrzjERSCEYDOLZ5182-10-60 08:20:95245Vewewmyi OilhrarWRWHYASVEF1580-56-93 08:20:006.8[facility] YjahrioKYTHXXSDZA9178-56-87 08:20:0074.0[facility] GyrycmgMCMZCGJWPK6821-83-63 08:20:0013.2[facility] ORAOOCGPCM1951-97-20 08:20:009.1[facility] ZmlkbqzKTXRFJJYLJ9528-31-93 08:20:003.2 [facility] ZnggagcUOFLRIVOVZ7454-98-08 08:20:000.5[facility]annHEMATOLOGY 2020-07-11 08:20:004.6[facility] MgyrxhfQUCUTEJMVV5764-61-80 08:20:000.8[facility] VqwpefhXLKECFGYTK4204-45-16 08:20:000.6[facility] RthgxwuQKNURSYMKQ1598-68-19 08:20:000.2[facility] JdjagyqEARYJAXYQH0958-08-82 14:52:006.6[facility] RDBPKVCLFH5545-85-04 14:52:002.76[facility] WkyhifnGULRKULPEU0314-28-35 14:52:00 8.1[facility] VezacqxECBQRYIBEP1442-35-46 14:52:0023.3[facility]annHEMATOLOGY 2020-07-10 14:52:0084.2[facility] OuwasqvTBBKWNDUET6277-02-02 14:52:00 Test Item Value Reference Range Interpretation Comments MCH (test code = MCH) 29.3 pg 27.0-31.0 [facility] RcpvsdzOAGVFLOEVV8940-55-96 14:52:0034.8[facility]annHEMATOLOGY 2020-07-10 14:52:0013.7[facility] RvgokhlLKSNTGWTNH6417-85-52 14:52:67490Tnbvnfhl LwhvndgNEHAHVLBOW6274-06-77 14:52:006.6[facility] PikjhvcPXBETHQRQQ7917-32-20 14:52:00Normal (07/10/20 9:52 AM)[facility] ZqqunpmXILAGHTSCV2875-72-43 14:52:00 Normal (07/10/20 9:52 AM)[facility] IqbwrvdDWICKRUSVU7988-21-66 14:52:0076.0 [facility] TesepsvBBPYXSMAYS9118-02-79 14:52:0011.5[facility]annHEMATOLOGY 2020-07-10 14:52:008.9[facility] BgsinrbKDIXZKSFHQ9460-32-06 14:52:003.1[facility] ZtkaxuaDONOKLIDLY9355-49-67 14:52:000.5[facility] YijchnxKDOUJLKKFP2337-88-17 14:52:005.1[facility] PcwulbpZTNHFZBQZB8818-28-05 14:52:000.8[facility] ABAAIJXRPG5926-97-20 14:52:000.6[facility] HtlkbwoHDFRPWRMEB5020-78-98 14:52:000.2 [facility]annCHEM UQKKX8785-25-75 14:49:005.2[facility]annCHEM PANEL 2020-07-09 14:49:001.5[facility]annCHEM VCDVB5213-49-33 14:49:0013[facility]annCHEM KCEQL2248-71-16 14:49:0011[facility]annCHEM GTAUE2125-13-27 14:49:0075[facility]annCHEM GOQZD1253-47-46 14:49:000.4[facility]annCHEM HWXRG3394-34-89 14:49:00 Test Item Value Reference Range Interpretation Comments B/C Ratio (test code = B/C Ratio) 4 1 6-25 [facility]annCHE[facility] XXBMU6538-68-77 14:49:003.7[facility]annCHEM PANEL 2020-07-09 14:49:00 Test Item Value Reference Range Interpretation Comments A/G Ratio (test code = A/G Ratio) 0.4 1 0.7-1.6 [facility]annCHEM TAZUH6314-22-60 14:49:004.1[facility] HermannTOXICOLOGY 2020-07-09 09:57:0015.9[facility] OlvcdhaJXKRAMEFZV5753-34-54 18:59:0015.4[facility]annBLOOD BANK HMWYWWD6659-44-74 11:40:00Negative (07/06/20 6:40 AM)[facility]annCARDIAC IUGXJVH5700-56-58 11:07:00<0.02[facility]annCHEM PANEL 2020-07-06 11:07:001.8[facility]annCHEM MIBAJ5300-57-38 11:07:005.3[facility]annCHEM CZORT6230-43-21 11:07:0048[facility]annCHEM VOOZN1818-13-99 11:07:005.3[facility]annCHEM WHKBW6625-09-58 11:07:001.6[facility]annCHEM PSNYU4506-17-43 11:07:003.7[facility] HermannCHEM VUEMS1620-26-38 11:07:00 Test Item Value Reference Range Interpretation Comments A/G Ratio (test code = A/G Ratio) 0.4 1 0.7-1.6 [facility] HermannCHEM HUCOI7105-17-74 11:07:0012[facility]annCHEM PANEL 2020-07-06 11:07:0013[facility] HermannCHEM DWNSN7412-04-81 11:07:0067[facility]annCHEM ERRRK9845-46-70 11:07:000.6[facility]annCHEM BZYXS2399-81-63 11:07:00<0.1[facility]annCHEM IPGSV6763-56-38 11:07:000.6[facility] ZNVQJUEHWK4467-81-81 11:07:00 Test Item Value Reference Range Interpretation Comments PTT (test code = PTT) 40.6 s 22.9-35.8 [facility]VotchkuUBZSCLIVLA5091-10-83 11:07:00 Test Item Value Reference Range Interpretation Comments PT (test code = PT) 14.0 s 12.0-14.7 [facility] HospitalTjoxxcuGBIWGJRIMM3532-01-55 11:07:00 Test Item Value Reference Range Interpretation Comments INR (test code = INR) 1.08 1 0.85-1.17 [facility] HermannCHEM CJVIV0320-40-30 13:56:0097[facility]annCHEM PANEL 2020-05-21 13:56:0041[facility] HermannCHEM FLKRU7626-43-74 13:56:0010.50[facility]annCHEM FYYAW2824-60-08 13:56:49255Thtzktew HermannCHEM BZJMM3669-84-09 13:56:003.2[facility]annCHEM LFQGB7651-92-05 13:56:0094[facility]annCHEM GXNBO5563-87-62 13:56:0028[facility]annCHEM KHMFL1684-23-97 13:56:009.5 [facility]annCHEM FIFXL4075-04-39 13:56:0014.2[facility]annCHEM PANEL 2020-05-21 13:56:005[facility]annCHEM WIEXP6729-05-91 13:56:005.4[facility]annCHEM KWIGR3580-63-96 13:56:002.3[facility] HermannCHEM JZADX6307-03-98 13:56:0016[facility]annCHEM GSDVN0513-64-77 13:56:0026[facility]annCHEM XMFAU8745-32-73 13:56:0082[facility]annCHE[facility] CUKNB4157-14-86 13:56:000.4 [facility] ABXFR3228-99-96 13:56:000.1[facility]annCHEM PANEL 2020-05-21 13:56:000.3[facility]annCHE[facility] SZYNZ4993-03-08 13:56:003.1[facility]annCHE[facility] AUVMR4429-29-61 13:56:00 Test Item Value Reference Range Interpretation Comments A/G Ratio (test code = A/G Ratio) 0.7 1 0.7-1.6 [facility]CHE[facility] HTANE4170-40-69 13:56:0041[facility]annHEMATOLOGY 2020-05-21 13:56:005.3[facility] IodbvjgOMHTTXTFHX1743-61-72 13:56:002.56[facility] AvwitbqIAMSFZXNBA1549-43-45 13:56:007.6[facility] PiscdjrEOBIWUXCXZ2332-35-96 13:56:0021.8[facility] XevucskZBPRTOXAIF6170-99-02 13:56:0085.2[facility] ZODEZVGNAC3048-08-53 13:56:00 Test Item Value Reference Range Interpretation Comments MCH (test code = MCH) 29.6 pg 27.0-31.0 [facility] SvwpbjdVBQGYVLFEJ1156-19-28 13:56:0034.8[facility]annHEMATOLOGY 2020-05-21 13:56:0013.9[facility] YbaobvfNZWAFHMTTZ9941-13-85 13:56:17515Olcruiyp ShujwsdDXOXPQOENL6725-53-43 13:56:007.1[facility] KrccrpzCQNPJOWWQA0765-04-76 13:56:0067.4[facility] IghjveqHLWFDTEFKV3920-08-08 13:56:0015.2[facility] DLPGJIRHDE8352-60-94 13:56:008.6[facility] QrsbabdBXPXOXUEYS7424-86-60 13:56:007.8 [facility] ZhyasjfFLAWFARUWB5562-25-44 13:56:001.0[facility]annHEMATOLOGY 2020-05-21 13:56:003.6[facility] QjqvkrzRJEUEQGRSY9187-96-67 13:56:000.8[facility] EvjcqxeYSRRZJMTAV7862-22-05 13:56:000.5[facility] PqjgwmpVBIIXSQBLF9461-39-90 13:56:000.4[facility] BcisqxeSPWLGYYLKJ7209-91-89 13:56:000.1[facility] HKUTAST9532-68-56 06:28:00Negative (03/23/20 1:28 AM)[facility] RUHAPWI1582-92-86 06:23:00Product available 2(03/23/20 1:23 AM)[facility] YSTBOX8870-79-00 06:08:86050702Zxlwvhlh HermannBODY HBBHLB8467-18-66 06:08:830830Rzdmickx HermannBODY LWUUNW0571-80-56 06:08:0037[facility] WNWTJA0561-43-16 06:08:004[facility] XCQOJE5956-66-28 06:08:0054 [facility] MBHJED7732-92-89 06:08:003[facility] FLUIDS 2020-03-23 06:08:002[facility] DXXXKO2191-50-92 06:08:00Bloody *ABN*(03/23/20 1:08 AM)[facility] FJQGUH7693-90-43 06:08:00Red *ABN*(03/23/20 1:08 AM)[facility] SHUOHQ2647-65-55 06:08:00Yellow *ABN*(03/23/20 1:08 AM)[facility] WVFUDA4388-81-28 06:08:00[place] (03/23/20 1:08 AM)[facility]annCHEM OKLKS6190-60-52 06:08:0098[facility] CHEM MAQBN7575-43-86 06:08:0081[facility]annCHEM TUTMU6731-53-63 06:08:00 14.40[facility]annCHE[facility] DZAHD3472-84-50 06:08:15702Utyhguzf HermannCHEM PANEL 2020-03-23 06:08:004.8[facility]annCHEM OMCJA4679-63-17 06:08:0090[facility]annCHE[facility] QVKSL3312-89-33 06:08:0027[facility]annCHE[facility] VGFTY9742-64-97 06:08:008.7[facility]annCHE[facility] EYFSR8614-03-84 06:08:005.7[facility]annCHE[facility] OUIFQ2515-83-11 06:08:002.5[facility]annCHE[facility] UAUZU0972-75-44 06:08:0032 [facility]CHE[facility] XHHAM2159-15-80 06:08:0036[facility]annCHEM PANEL 2020-03-23 06:08:73322Fvyzdfdx HermannCHEM UYVJB5146-32-29 06:08:000.5[facility]annCHE[facility] PKXYX4886-71-28 06:08:0016.8[facility]annCHE[facility] ADDSI6995-97-49 06:08:00 Test Item Value Reference Range Interpretation Comments B/C Ratio (test code = B/C Ratio) 6 04-02 [facility]annCHE[facility] TLOZU3252-84-84 06:08:003.2[facility]annCHEM PANEL 2020-03-23 06:08:00 Test Item Value Reference Range Interpretation Comments A/G Ratio (test code = A/G Ratio) 0.8 1 0.7-1.6 [facility]annCHE[facility] ORCYB9479-97-38 06:08:003[facility]annCHEM PANEL 2020-03-23 06:08:000.6[facility] IanzsqzOMWRMADRJD0866-96-18 06:08:0011.5[facility] TspubnnBUCYPCDBZI9921-63-93 06:08:002.12[facility] XlqitlnGNDCVEGTED8476-06-26 06:08:006.1[facility] RggjqnzXJPMMCJAJT2206-98-42 06:08:0018.4[facility] TOTMYZACAU2547-88-12 06:08:0086.5[facility] McimwjaBCJMDOUSPZ2349-78-41 06:08:00 Test Item Value Reference Range Interpretation Comments MCH (test code = MCH) 28.6 pg 27.0-31.0 [facility] DigildmHNXILAKUCK6151-93-61 06:08:0033.1[facility]annHEMATOLOGY 2020-03-23 06:08:0015.9[facility] SjuvgxhSTCBJQFDBH0280-15-65 06:08:05357Nyenfkbj KalctzzRTGROFSCDY2040-15-77 06:08:006.8[facility] AqvedzuDOPMQFYUAO0842-32-26 06:08:00 Test Item Value Reference Range Interpretation Comments PT (test code = PT) 13.9 s 12.0-14.7 [facility] CcrdlklKBSQTLDQKK0738-31-04 06:08:00 Test Item Value Reference Range Interpretation Comments INR (test code = INR) 1.07 1 0.85-1.17 [facility] CnuxcckHYDPMAEGAH4270-81-63 06:08:00Normal (03/23/20 1:08 AM)[facility] AxzejfdTEPQSXFQSJ5177-37-22 06:08:00Normal (03/23/20 1:08 AM)[facility] CONHPKCGOH1588-60-75 06:08:0080.9[facility] MeysqxgQMVZXCVHEV5842-91-94 06:08:00 9.1[facility] OkwtutnYVNYJPVZJH8967-31-38 06:08:007.3[facility] HermannHEMATOLOGY 2020-03-23 06:08:002.0[facility] EincmodTWOHPKSPBV0736-45-69 06:08:000.7[facility] EuzezamLMKDYSHAPK0691-48-83 06:08:009.3[facility] LlhedhfRWRUPWZCYV1605-44-19 06:08:001.0[facility] XbfqzqhWCTIEYICDQ6799-26-44 06:08:000.8[facility] LXLPKSCSEL7589-95-45 06:08:000.2[facility] TuhqpfvXDZOVDQAUC7830-74-21 06:08:000.1 [facility] BmdjiirFQGCRKJCAZ9577-61-23 06:08:002+ *ABN*(03/23/20 1:08 AM)[facility] ZhlnwqcNKYCOWKZNM8688-68-70 06:08:001+ *ABN*(03/23/20 1:08 AM)[facility] IFHQZLOFYJ4209-46-35 06:08:001+ *ABN*(03/23/20 1:08 AM)[facility]annHEMATOLOGY 2020-03-23 06:08:00Rare *ABN*(03/23/20 1:08 AM)[facility]annCHEM PANEL 2020-02-03 21:27:0085[facility]annCHEM ZUTWA3882-34-95 21:27:0058[facility]annCHEM QROYX2189-61-04 21:27:0012.00[facility]annCHE[facility] OTWCS2755-16-70 21:27:33298Wcphhdes HermannCHEM EYBHQ7314-80-51 21:27:004.2[facility]annCHEM BRPBP0067-40-23 21:27:0092[facility]annCHEM RCYBY8708-01-19 21:27:0026 [facility]CHE[facility] KWEBN8758-97-96 21:27:008.3[facility]annCHEM PANEL 2020-02-03 21:27:005.5[facility]annCHEM USGPN2114-14-94 21:27:002.4[facility]annCHEM VCCLT6372-07-77 21:27:0018[facility]annCHEM DRPFA8464-68-41 21:27:0020[facility]annCHEM ENLUH7751-47-62 21:27:0076[facility]annCHEM YTWXU7289-60-00 21:27:000.3[facility]annCHE[facility] SSFQN7499-50-23 21:27:0015.2 [facility]annCHE[facility] GOGMA4090-66-95 21:27:00 Test Item Value Reference Range Interpretation Comments B/C Ratio (test code = B/C Ratio) 5 1 6-25 [facility]annCHE[facility] YJHLZ9574-21-98 21:27:003.1[facility]annCHEM PANEL 2020-02-03 21:27:00 Test Item Value Reference Range Interpretation Comments A/G Ratio (test code = A/G Ratio) 0.8 1 0.7-1.6 [facility]annCHEM OVOYZ3249-70-93 21:27:004[facility]annHEMATOLOGY 2020-02-03 21:27:008.7[facility] AzxbqdcHBBGKYROPH3352-42-73 21:27:002.94[facility] FmyhakaLLVMGJBOSL3223-47-96 21:27:008.4[facility] LmbfxkmLXOLFUTRAJ7200-85-22 21:27:0025.0[facility] SlyhddyRFGGAZASBZ9597-57-51 21:27:0084.9[facility] NHXPIVCJCL9564-43-51 21:27:00 Test Item Value Reference Range Interpretation Comments MCH (test code = MCH) 28.7 pg 27.0-31.0 [facility] UswdoacAJVSAYXUOM3556-63-56 21:27:0033.8[facility] HermannHEMATOLOGY 2020-02-03 21:27:0014.4[facility] UqpffleNUGODMTMOQ4917-45-06 21:27:04841Oajwiqft NtiuwvoXAHPRIZBJZ3416-76-96 21:27:007.6[facility] HfmfejqTPJMQASUQA4972-67-35 21:27:007.7[facility] HsdhtqtQJBTPWZXDK8179-54-66 21:27:000.4[facility] JNQTPHGYOS1451-40-00 21:27:000.3[facility] CvbfyllHFXXNACYVQ0414-24-01 21:27:000.2 [facility] IamdftuRUCWDDOZPN2088-86-44 21:27:0086.0[facility] HermannHEMATOLOGY 2020-02-03 21:27:003.0[facility] TpqawxgDLFHJRMGQJ6287-27-31 21:27:003.0[facility] SddlpoyQRDFLJAANV3232-43-78 21:27:004.0[facility] QigychoSREUMBYLIM1578-22-36 21:27:002.0[facility] AwpbrniINWXRDTMWZ7138-03-88 21:27:002.0[facility] UXPIDDRSJB9395-26-67 21:27:00Normal (02/03/20 4:27 PM)[facility]annHEMATOLOGY 2020-02-03 21:27:00Normal (02/03/20 4:27 PM)[facility] ZombqcwIYDUTJSWVI7503-11-93 21:27:001+ *ABN*(02/03/20 4:27 PM)[facility] ToixlwwOYLQLJLEKT4457-56-32 21:14:00 Not Detected (02/03/20 4:14 PM)[facility] PZYTCH5640-73-31 18:30:00 Colorless (11/04/19 12:30 PM)[facility] CINCZD5766-23-48 18:30:00Clear (11/04/19 12:30 PM)[facility] GMKEDU2554-85-06 18:30:0011[facility] WESDAB3957-03-65 18:30:0011[facility] THHXIY9765-53-44 18:30:0011[facility] CCFRJJ7080-00-72 18:30:0056[facility] GSMKOA0722-60-84 18:30:0033[facility] XXVPXS8057-08-79 18:30:00[place] (11/04/19 12:30 PM)[facility]annCHEM MJCCN4373-05-61 18:00:82671Vmbpyvtw HermannCHEM ZDWLT8540-70-24 18:00:0040[facility]annCHEM OWVUH6190-93-27 18:00:0010.60[facility]annCHEM SGEQF4140-08-78 18:00:81756Pkcujxxf [place] CHEM PKNEK0143-46-25 18:00:003.8[facility]annCHEM VRZRK5129-22-12 18:00:89654 [facility]annCHE[facility] SRRNV7862-14-96 18:00:0032[facility]annCHEM PANEL 2019-11-04 18:00:009.3[facility]annCHEM ZZIVY3462-50-36 18:00:0011.8[facility]annCHEM IULYX7724-67-57 18:00:005[facility] HakxcysKYYMBAPORM7486-47-49 18:08:0010.2[facility]annCHEM NVSIQ0124-80-22 13:45:45548Sixrolci HermannCHEM EBITP3773-00-17 13:45:0035[facility]annCHEM OLYKO1375-34-02 13:45:009.71 [facility]annCHE[facility] QFSRF3772-46-95 13:45:54390Hwhnkrfp HermannCHEM PANEL 2019-11-03 13:45:003.4[facility]annCHEM QYWKN7417-18-11 13:45:27552Skktpwtq HermannCHEM WSTLJ9394-05-99 13:45:0029[facility]annCHEM JEAZP4029-78-85 13:45:009.0[facility]annCHEM XZQFS5270-35-92 13:45:0011.4[facility]annCHEM NWIND1426-38-88 13:45:005[facility] YaqupofEPUMJONFWQ0041-90-62 13:45:004.3 [facility] ZbwuotbPARPXLWGEK4816-73-35 13:45:003.00[facility]annHEMATOLOGY 2019-11-03 13:45:008.4[facility] QuyhnsrCTEPHGAPHF7077-23-31 13:45:0025.3[facility] MvffrgvXSJVJLVFLW0513-36-66 13:45:0084.3[facility] HdjimjiVBSSRTDJTP1993-12-66 13:45:00 Test Item Value Reference Range Interpretation Comments MCH (test code = MCH) 28.2 pg 27.0-31.0 [facility] CwyvuiuSPESXDIWDP3854-79-69 13:45:0033.4[facility]annHEMATOLOGY 2019-11-03 13:45:0014.5[facility] WizrnsgJKUWZRRHLX0856-75-51 13:45:94954Kbnexseg DdrvhinICNTUDAORN6780-02-44 13:45:006.5[facility] OdyodauHFAZQWNMVI0954-73-51 13:45:0066.4[facility] LvztpxiTFIBGHTQPY5964-01-06 13:45:0019.6[facility] BNYATMJMDZ3455-92-37 13:45:009.3[facility] FzvzdvrVXXIXGYJAW6958-62-98 13:45:003.7 [facility] AlisolqIHHZNEZUMV7591-43-43 13:45:001.0[facility] HermannHEMATOLOGY 2019-11-03 13:45:002.8[facility] RnhvwbgXZGBVPNTRP4250-04-64 13:45:000.8[facility] ZfepkaeLWJOBZORKZ6142-79-57 13:45:000.4[facility] BwqhsefRUNEGORLDN7754-96-08 13:45:000.2[facility] RibbqnpZRGWWNFQWCIG3332-71-95 13:25:02319Mccnvbnc [place] SHIKVUZGHOAI1004-44-17 13:25:003.7[facility] JuijngvWWTEXQEITGTU0544-47-07 13:25:0099[facility] BdgzrxdTVJZQQJRLYPZ7038-17-06 13:25:76804Enaeohhc [place] YHHMLIOJDFPY4411-46-42 13:25:0042[facility] FghvhpsTQLNSVWJQBWO8216-95-39 13:25:00 9.35[facility] DmjjtrrSHFQAFFNJZRB6890-47-57 13:25:0032[facility] UCQJPHPVOMIK0383-10-42 13:25:008.8[facility] JkhvsmqEPVLZIMVACCD8433-11-79 13:25:008.7[facility] ZhqfnvbEHGJHUGSICRT0903-09-69 13:25:006[facility] [place] AQZQBWIURB3961-70-48 17:58:0010.6[facility]annB[facility] CNOYWF5010-33-49 15:00:00 Colorless (11/01/19 9:00 AM)[facility] WOLLKJ5887-85-53 15:00:00Slight Cloudy (11/01/19 9:00 AM)[facility] PLEDPA5178-88-63 15:00:04252 [facility] GTNNYY5938-43-84 15:00:0054[facility] FLUIDS 2019-11-01 15:00:0020[facility] ORMCER3949-86-88 15:00:0041[facility] OMMRPS5224-02-80 15:00:0035[facility] WPQJWP9546-29-02 15:00:004[facility] CQFAZA6734-12-86 15:00:00[place] (11/01/19 9:00 AM) [facility] XQWFGS1246-38-10 18:35:00Colorless (10/31/19 12:35 PM) [facility] GRCJSR2771-68-44 18:35:00Slight Cloudy (10/31/19 12:35 PM) [facility] LLKLJE5843-52-87 18:35:53007Bbuvahqz HermannBODY FLUIDS 2019-10-31 18:35:000[facility] SDWSDO7090-82-87 18:35:0035[facility] ICAMWS0847-53-02 18:35:0021[facility] ILCVWO4482-48-42 18:35:0043[facility] HEZDRG0196-85-50 18:35:001[facility] YYMXZI2553-23-79 18:35:00[place] (10/31/19 12:35 PM)[facility]annCHEM PANEL 2019-10-31 10:35:004.3[facility] HermannCHEM RSAEH8773-77-22 10:35:002.0[facility] NiwosflEPQQBARQWX4045-55-79 10:35:006.3[facility] EwmdmoaPRTAZZJSXP8227-84-45 10:35:002.76[facility] IdzbwtsJKIYELMOIH7627-65-52 10:35:008.1[facility] MHXFFGRNRL9356-48-15 10:35:0023.5[facility] VzvjtvuSTKCKAJIXL9260-83-65 10:35:00 85.2[facility] WnnejcvIEWDGDKPFG7930-51-33 10:35:00 Test Item Value Reference Range Interpretation Comments MCH (test code = MCH) 29.2 pg 27.0-31.0 [facility] ZoodbpmQERRYFILZG9574-16-25 10:35:0034.3[facility] HermannHEMATOLOGY 2019-10-31 10:35:0014.5[facility] FfvvpwtOXPBQGKOAH0297-88-54 10:35:07388Etqdaogk DxxeqfvRXTATGQTKR4260-02-52 10:35:007.0[facility] UupngidZDHUTFERIA9201-17-08 10:35:0077.7[facility] VfjztekWMBNDJYXTI1143-88-77 10:35:0010.2[facility] WETGDMDVJG0279-36-41 10:35:0010.0[facility] FctnhqaYJRAXUCFOY7172-95-50 10:35:00 1.7[facility] ZtcvyjtMEFMHMQTYP5625-71-17 10:35:000.4[facility]annHEMATOLOGY 2019-10-31 10:35:004.9[facility] AftpokyQOOPSRWXUW2613-85-40 10:35:000.6[facility] RlgaaqrNJIFOTXHBR4635-23-56 10:35:000.6[facility] HyaypxjEBBTOOXHUP4221-27-74 10:35:000.1[facility] HermannMOLECULAR IISIHNIRIP2615-35-11 19:34:00Nasophrngl Swb *NA*(10/30/19 1:34 PM)[facility] HermannMOLECULAR LLPFGHKEDH1861-33-81 19:34:00 Negative *NA*(10/30/19 1:34 PM)[facility] HermannMOLECULAR BZHSQNTFDS6967-94-93 19:34:00Negative *NA*(10/30/19 1:34 PM)[facility] HermannMOLECULAR DIAGNOSTIC 2019-10-30 19:34:00Positive *ABN*(10/30/19 1:34 PM)[facility] [place] IMIPENEM:SUSC:PT:ISOLATE:ORDQN:ERN1407-13-77 18:00:00Enterococcus Species [facility] HermannIMIPENEM:SUSC:PT:ISOLATE:ORDQN:MTF0936-89-07 18:00:00Pseudomonas putidaMemorial HermannCHEM LQUXT8452-44-02 17:21:000.6[facility]annCHEM PANEL 2019-10-30 10:56:002.1[facility]annCHEM PSIXI1998-23-05 10:56:004.5[facility] KfjazarHZJIMEHMAW8504-80-02 10:56:006.7[facility] LccvxxpFQVNWDKCAP8500-82-09 10:56:002.47[facility] WbchcnoQWZEZRVQFC8666-13-94 10:56:007.2[facility] FTTCIGQROW7285-11-20 10:56:0021.1[facility] BlvzrbzMUDXTWRVUH7889-12-05 10:56:00 85.2[facility] RrtvokxJZPZMICVOM6059-51-86 10:56:00 Test Item Value Reference Range Interpretation Comments MCH (test code = MCH) 28.9 pg 27.0-31.0 [facility] CcfbnnrXUDMYKITYQ6055-17-64 10:56:0034.0[facility] HermannHEMATOLOGY 2019-10-30 10:56:0014.6[facility] RiqryasPFTSLRZQVO2916-23-38 10:56:38315Leievgoy OxlctpqHZWRBLKKKD4284-87-60 10:56:007.2[facility] NhvcgyvMXMSMFEAXC1235-77-34 10:56:0087.8[facility] XwefoepLENLTDBDUA7021-94-91 10:56:003.9[facility] JIAJXRIHQV2575-28-44 10:56:006.8[facility] IfugbljDFHMBYAWIH6237-09-24 10:56:001.1 [facility] BaxjlvxHWLGWUZUTD2901-79-69 10:56:000.4[facility] HermannHEMATOLOGY 2019-10-30 10:56:005.9[facility] XdbgtpjBOLHOXZQRN1170-61-30 10:56:000.3[facility] PqbsvrbCNBXRANRJA2292-84-62 10:56:000.5[facility] RsokwuuVNUBSABBTY5740-52-84 10:56:000.1[facility] HermannCHEM RNZFS8808-59-88 22:52:002.2[facility] HermannCHEM PETOK6038-08-37 22:52:005.8[facility] HermannCARDIAC KGUYSJL9316-37-65 10:47:00 0.02[facility] HermannCARDIAC FAVUPLV9566-58-53 07:19:000.02[facility] CARDIAC DNBMATJ4630-48-09 03:06:00<0.02[facility]annCHEM VFEVU6292-89-28 03:06:005.5[facility] HermannCHEM CKBWG5763-15-07 03:06:002.3[facility] HermannCHEM NYEHY4067-78-79 03:06:0022[facility] HermannCHEM JYZIX9058-53-47 03:06:0050 [facility]annCHEM RUYCB0735-32-70 03:06:0068[facility]annCHEM PANEL 2019-10-29 03:06:000.6[facility]annCHEM RFXFR8630-57-51 03:06:00 Test Item Value Reference Range Interpretation Comments B/C Ratio (test code = B/C Ratio) 5 1 6-25 [facility]annCHEM BJWCI8048-54-12 03:06:003.2[facility] HermannCHEM PANEL 2019-10-29 03:06:00 Test Item Value Reference Range Interpretation Comments A/G Ratio (test code = A/G Ratio) 0.7 1 0.7-1.6 [facility] MubuzzuMOUACJXIST4820-55-65 03:06:00Normal (10/28/19 9:06 PM)[facility] BdatumgQZAYGFUQSW2170-12-27 03:06:000.1[facility] HermannCHEM LZGJA6103-21-54 10:56:0093[facility] HermannCHEM SDEDR6824-40-10 10:56:0026[facility] HermannCHEM BCAXE8947-60-64 10:56:007.85[facility] HermannCHEM ATIBL0175-49-24 10:56:66304 [facility]annCHEM LJPLZ1510-12-10 10:56:003.7[facility] HermannCHEM PANEL 2019-08-20 10:56:23242Fnmofgig HermannCHEM VAQEG6144-93-00 10:56:0025[facility]annCHEM AWFJK6038-76-19 10:56:009.2[facility] HermannCHEM BTVUH8653-15-61 10:56:007[facility]annCHEM DUTJW4958-09-50 10:56:0014.7[facility] ECVPOMHNEE1759-41-82 10:56:008.6[facility] ObqflurURWKKLZIHU9947-24-48 10:56:00 3.37[facility] WopnrchZBRXCCLEKW0448-93-29 10:56:0010.2[facility] HermannHEMATOLOGY 2019-08-20 10:56:0029.9[facility] XffoampTQHADPSKDP6538-63-79 10:56:0088.7[facility] GqhsgwlKUVSWLOYLX3812-79-17 10:56:00 Test Item Value Reference Range Interpretation Comments MCH (test code = MCH) 30.1 pg 27.0-31.0 [facility] XsfmdmcPIBROPRXKC7578-17-84 10:56:0033.9[facility] HermannHEMATOLOGY 2019-08-20 10:56:0013.7[facility] XjxewpxURTJGHBFBZ2047-06-89 10:56:45744Puernrix YlemvvqIKWGNCEVEM2158-18-16 10:56:006.7[facility] EzfqhxpRJVCXHMWEX1897-81-41 10:56:0079.5[facility] OhmsuavYZMDUPMDAQ3988-27-18 10:56:0012.8[facility] KYGWEVXJBR2045-40-33 10:56:006.3[facility] HcvqlswJJJKXCPPUH1258-41-09 10:56:000.6 [facility] ZhsxfxmGLVQQDQYGQ6942-80-64 10:56:000.8[facility] HermannHEMATOLOGY 2019-08-20 10:56:006.8[facility] TultkkwTVNPDIEDKN1726-71-48 10:56:001.1[facility] KbgezamICRGEETGPH7338-49-24 10:56:000.5[facility] CirumtmOUOOJXVYAC7705-66-10 10:56:000.1[facility] HermannCHEM WPFUH4807-35-31 10:14:56796Gorxnwhd HermannCHEM UCNAD4048-07-19 10:14:0018[facility] HermannCHEM BVCRE2620-60-66 10:14:007.09 [facility] HermannCHEM HEJJQ1953-97-43 10:14:60278Bqkxwuxy HermannCHEM PANEL 2019-08-19 10:14:003.6[facility] HermannCHEM HBUKV7978-94-75 10:14:12637Orbhhtyn HermannCHEM PCXPM9280-59-20 10:14:0028[facility] HermannCHEM SSUNB6587-09-33 10:14:0013.6[facility] HermannCHEM OEIJS7105-91-91 10:14:009.5[facility] HermannCHEM QKMJR0312-32-46 10:14:008[facility] XoznrniYLVPMACYOG0132-53-65 10:14:007.7 [facility] YgqcvyaHPVYWPRMUU5411-79-52 10:14:003.61[facility] HermannHEMATOLOGY 2019-08-19 10:14:0010.8[facility] DsfizhwPPQMWYOINH9897-36-09 10:14:0031.7[facility] OdgbeypOAKFSWPCOQ2020-93-03 10:14:0087.7[facility] RqjtphgWMDIXFVIWJ2274-41-09 10:14:00 Test Item Value Reference Range Interpretation Comments MCH (test code = MCH) 30.0 pg 27.0-31.0 [facility] SfhrkbsBMUBMFZJMQ8267-04-36 10:14:0034.2[facility] HermannHEMATOLOGY 2019-08-19 10:14:0014.0[facility] BelcngaBRHNLUVEEH0053-27-88 10:14:02830Rlmfxtei TdlysflWIDRHMBRIK4896-22-58 10:14:007.0[facility] TrvtzyuSBISRAXZYS6696-38-96 10:14:0075.0[facility] QrngjvkDEVICIGCAK6968-91-27 10:14:0015.4[facility] FRTPJTOGVZ7922-45-32 10:14:007.1[facility] LlkdvdyURBWUVYWZS3267-63-72 10:14:001.4 [facility] JnokkmjYLUPYGMFWQ9406-18-12 10:14:001.1[facility] HermannHEMATOLOGY 2019-08-19 10:14:005.8[facility] YcuzeeqFSGJVTCBQU5278-44-88 10:14:001.2[facility] ZpmdiuzYRLNSYOTUS0245-75-92 10:14:000.5[facility] VxtokruXWCFMPKFOE5307-93-80 10:14:000.1[facility] BdbctwnGAXHSUPYPQ7976-18-75 10:14:000.1[facility] HermannCHEM OINRE2627-36-18 10:24:17122Ryydgfjg HermannCHEM VSEGJ1915-90-13 10:24:0034 [facility]annCHEM ANRZP2291-73-22 10:24:0011.00[facility] HermannCHEM PANEL 2019-08-18 10:24:16751Hyiooyjc HermannCHEM CMBTL8803-25-78 10:24:003.6[facility] HermannCHEM XITBX7488-88-58 10:24:62516Axjglagc HermannCHEM DAQLC7436-78-70 10:24:0028[facility]annCHEM MYQFH3297-15-94 10:24:0011.6[facility] HermannCHEM GMCLM0495-27-70 10:24:009.0[facility] HermannCHEM JJARB7483-31-28 10:24:005 [facility] YjbukrtOIZIMLXNJF9610-76-69 10:24:006.9[facility] HermannHEMATOLOGY 2019-08-18 10:24:003.13[facility] LltyjraCVWYIYKDIO4061-31-39 10:24:009.3[facility] BwresrxSDWVLZWXIG9176-03-15 10:24:0027.4[facility] IeszbtqFILYJSVPQX9983-58-49 10:24:0087.7[facility] YqyzaocMRPAKVHGOJ0455-25-85 10:24:00 Test Item Value Reference Range Interpretation Comments MCH (test code = MCH) 29.6 pg 27.0-31.0 [facility] TehgxeyBYJPEJSHYT4447-77-54 10:24:0033.8[facility] HermannHEMATOLOGY 2019-08-18 10:24:0014.0[facility] XuszjdvLXQDXQUPUQ0571-84-97 10:24:83450Bbdzvoyx IvayqmjWIGBFNPYCO3766-40-90 10:24:006.9[facility] AgopohuFYGWEYMZUM4786-48-64 10:24:0078.2[facility] NuokkiqEOCHGURAQI1452-38-19 10:24:0012.2[facility] MZQVLGOJFA2026-50-66 10:24:006.6[facility] LjdnmgkARPOLUVVGT6914-13-82 10:24:002.4 [facility] IdklnimMRHBKSCUFB1140-18-20 10:24:000.6[facility] HermannHEMATOLOGY 2019-08-18 10:24:005.4[facility] TrbvzbwHGYFSNUWNE8479-92-61 10:24:000.8[facility] MmxikemTAMDKHBNNE9532-96-81 10:24:000.5[facility] OgfeeuiFDPVWJKUCB4404-51-40 10:24:000.2[facility] SaxttvvDWDSRFZUZP7967-18-49 14:31:00Negative *NA*(08/17/19 8:31 AM)[facility] AfyetwkLGWUEWJNMX8927-66-09 19:35:00 Test Item Value Reference Range Interpretation Comments PT (test code = PT) 12.2 s 12.0-14.7 [facility] UxifdkvTWJWCYNGQR5450-06-76 19:35:00 Test Item Value Reference Range Interpretation Comments INR (test code = INR) 0.92 1 0.85-1.17 [facility] MbuynzpKBBYQSZNWL3037-14-15 19:35:00 Test Item Value Reference Range Interpretation Comments PTT (test code = PTT) 37.1 s 22.9-35.8 [facility] HermannCHEM PSPPF1122-06-84 10:20:003[facility] HermannCHEM PANEL 2019-04-07 10:20:0096[facility] HermannCHEM FEVPE7041-19-45 10:20:0068[facility] HermannCHEM QASJQ1240-98-97 10:20:008.7[facility] HermannCHEM OBHLJ4846-92-91 10:20:0016.7[facility] HermannCHEM VOTRQ7993-13-71 10:20:57782Blggsztb HermannCHEM ODUXB2290-40-69 10:20:0025[facility] HermannCHEM RZAMX9485-44-48 10:20:003.7 [facility]annCHEM ACUUP7363-85-72 10:20:0093[facility] HermannCHEM PANEL 2019-04-07 10:20:0015.20[facility] HermannCARDIAC HCIFOQI9106-93-34 14:42:000.03 [facility] HermannANEMIA YXJBP3585-73-24 08:16:88994Nxfehecx HermannCARDIAC LXGVNIW4543-32-17 08:16:000.04[facility] HermannCHEM MGBMG7777-98-99 08:16:001.8 [facility]annCHEM MYSYL2751-45-35 08:16:003[facility] HermannCHEM PANEL 2019-04-06 08:16:00 Test Item Value Reference Range Interpretation Comments A/G Ratio (test code = A/G Ratio) 0.6 1 0.7-1.6 [facility]annCHEM MUBFQ7390-17-70 08:16:00 Test Item Value Reference Range Interpretation Comments B/C Ratio (test code = B/C Ratio) 4 1 6-25 [facility]annCHEM LWIRZ6066-23-45 08:16:003.4[facility] HermannCHEM PANEL 2019-04-06 08:16:000.4[facility] HermannCHEM VKZLJ8356-00-38 08:16:0018.3[facility] HermannCHEM YIELL4701-21-17 08:16:0093[facility] HermannCHEM TOMRJ3545-31-21 08:16:0023[facility] HermannCHEM VBOWE1092-07-89 08:16:008.1[facility] HermannCHEM QQVAG6938-17-68 08:16:0057[facility] HermannCHEM SCMZF4190-17-61 08:16:0060 [facility]annCHEM NZSYT1316-59-36 08:16:62721Sumexnvd HermannCHEM PANEL 2019-04-06 08:16:0015.90[facility] HermannCHEM CBOCC1691-71-79 08:16:004.3[facility] HermannCHEM SMRLI2393-75-86 08:16:0021[facility] HermannCHEM TDVNB4531-01-82 08:16:0076[facility] HermannCHEM XRDIM8388-82-09 08:16:0016[facility] HermannCHEM JJPAH6792-18-91 08:16:005.6[facility] HermannCHEM VYUZX2481-08-19 08:16:002.2 [facility] HmqckmaBUIJPWAUBO6535-90-75 08:16:00 Test Item Value Reference Range Interpretation Comments PTT (test code = PTT) 41.5 s 22.9-35.8 [facility] NmsnbupWIRAMFZOUZ0359-10-10 08:16:00 Test Item Value Reference Range Interpretation Comments PT (test code = PT) 14.4 s 12.0-14.7 [facility] ZseeangRXACYJOZWP5074-83-99 08:16:00 Test Item Value Reference Range Interpretation Comments INR (test code = INR) 1.14 1 0.85-1.17 [facility] KnwjdrhSJFOYTPNVT1502-67-05 08:16:0015.5[facility] HermannHEMATOLOGY 2019-04-06 08:16:40322Ebgydpud NlznipiAYGNSPGHLP3497-59-53 08:16:00 Test Item Value Reference Range Interpretation Comments MCH (test code = MCH) 28.7 pg 27.0-31.0 [facility] BjyxnldYPUWCUHWHP1380-67-97 08:16:0034.2[facility] HermannHEMATOLOGY 2019-04-06 08:16:0084.1[facility] JzsdrzmLGTEZEWERS1219-50-77 08:16:0011.4[facility] NrigjsoELEVHGTZGO5082-04-12 08:16:0033.2[facility] EjuwbytYHCPSOUSBE7093-69-01 08:16:0010.2[facility] HurtpbkAJYNFQUWUJ6749-93-47 08:16:003.95[facility] GOVXHWONXY4562-31-51 08:16:008.3[facility] IfwliumWBTHSZNWQN8268-33-51 08:16:00 84.8[facility] OnwgffeRCJDAANSQZ9273-85-20 08:16:000.1[facility] HermannHEMATOLOGY 2019-04-06 08:16:000.5[facility] QbtdkleOYZARLITKI0019-83-63 08:16:001.2[facility] TjgpabhVFFQVSKZSA8882-72-16 08:16:006.5[facility] FyikxrrCGYBYDYZBA7210-72-01 08:16:007.0[facility] FuzhalqHLNGTAVICT7668-53-49 08:16:000.1[facility] MKLHLXZCJU7066-46-29 08:16:000.7[facility] PybxgiiKSDKQDOUKZ9718-01-39 08:16:000.7 [facility] FijhcxrYWZFBZZLVI6647-70-26 08:16:008.7[facility] HermannCHEM PANEL 2019-04-06 04:17:000.3[facility] HermannCARDIAC YZXYYUR5461-26-51 02:25:000.03 [facility] EakjbjcPPRMEN4857-16-12 02:25:00 Test Item Value Reference Range Interpretation Comments CHD Risk (test code = CHD Risk) 3.10 1 4.00-7.30 [facility] VyerudhNMSLQY0731-24-27 02:25:00 Test Item Value Reference Range Interpretation Comments VLDL (test code = VLDL) 21 1 [facility] YyavkuhIPNOYF2587-42-31 02:25:0058[facility] YclqqtnPXVGVF0829-00-62 02:25:70697Xpklmdey PtwivtvRIKFTS5331-61-79 02:25:51143Grgvzyxo HermannLIPIDS 2019-04-06 02:25:93149Jvnsxjlk HermannSPECIAL SVZYJHMEF3113-80-29 02:25:004.0 [facility] HermannCHEM RQAZC4034-70-48 12:41:006.1[facility] HermannELECTROLYTES 2018-07-23 12:41:0014.8[facility] SqtziidWFJTLOFIXVLE4348-19-68 12:41:004[facility] IlsfgwqDRARBBCGKSFH2809-18-58 12:41:0027[facility] RryqarvIOYADMSOMPGP9974-44-05 12:41:007.9[facility] JimxvymDIVONBTMUDVC8184-83-53 12:41:0012.90[facility] OKTEYBJJKNMW1081-53-46 12:41:0060[facility] LimzujqFTHFLPSIYGYY0981-88-98 12:41:00 139[facility] SafqhinJGOTBRJAMGQR4653-67-49 12:41:0093[facility] HermannELECTROLYTES 2018-07-23 12:41:51612Rrpkzexw RcgotcnEEVSDECJJRRD9780-63-87 12:41:004.8[facility] AltwnlqRWLEKNHWSL2584-79-69 12:41:0035.3[facility] MfqelkxWVGFBJONYB4960-03-92 12:41:007.8[facility] HviljloYXPTVPVYDB8270-30-72 12:41:0022.0[facility] GWCHXJVNZK7198-79-00 12:41:002.68[facility] YrsztlrAIDWBUVOPP7536-25-13 12:41:00 4.4[facility] AeyrreaKAKRVVLEXS7268-58-08 12:41:0014.5[facility] HermannHEMATOLOGY 2018-07-23 12:41:0082.1[facility] PjonzqcOYLSAHJPWX4617-01-01 12:41:00 Test Item Value Reference Range Interpretation Comments MCH (test code = MCH) 29.0 pg 27.0-31.0 [facility] QcmnzgsCATPXFPYCO8693-44-34 12:41:16858Unguztfp HermannHEMATOLOGY 2018-07-23 12:41:007.3[facility] EijzujkDMUSLZYBIA6695-98-59 12:41:000.4[facility] DhgkiffNULBYZTLRS8336-54-65 12:41:000.2[facility] CociclzZULVABUQNT4199-16-56 12:41:009.7[facility] IlfbqogBFBXEJPIKK1292-25-15 12:41:003.7[facility] QRIYPZBOQZ2973-22-24 12:41:000.8[facility] ZjxyjefPQIMLFOUPM3898-87-85 12:41:003.0 [facility] IicleuvTBTEZJQDHH6063-76-88 12:41:000.8[facility] HermannHEMATOLOGY 2018-07-23 12:41:0067.6[facility] SmxfmsxWEIQEOVDFX2804-98-32 12:41:0018.2[facility] HermannCHEM FETCB6636-42-59 11:17:002.5[facility] HermannCHEM BAJMU2715-27-01 11:17:008.3[facility] GissttrJKLGTDMMUBNW3286-52-05 11:17:0022[facility] TFHEVGKPKIUL1849-75-23 11:17:007.5[facility] CeaajkfTGHGLQOGLTLE6963-13-20 11:17:0098[facility] IhqwtsbOBJEIZHBWQLQ2981-67-93 11:17:002[facility] UHKGFFOJMLZE5438-10-13 11:17:0019.20[facility] NefnghjFLJIDXEHTWUX6656-17-40 11:17:0097[facility] CpxyqakTZHIFIRPPCAM7649-68-78 11:17:004.7[facility] GBZSYESJGFWC1847-65-65 11:17:80056Tcxghayv DnjmqkzIKSKJTFVBZSY5498-54-70 11:17:0082[facility] MwxhiylOFCMSHPYTVHX0057-43-05 11:17:0019.7[facility] BWITAZVVWQ0591-87-58 11:17:004.9[facility] UjbxzdfZROGCPDTSW0724-17-28 11:17:00 2.85[facility] FudhrtkFSXNLEBUEO4841-32-66 11:17:0082.3[facility] HermannHEMATOLOGY 2018-07-22 11:17:00 Test Item Value Reference Range Interpretation Comments MCH (test code = MCH) 28.8 pg 27.0-31.0 [facility] YgmluwkUPGOWGPXRN1460-00-78 11:17:008.2[facility] HermannHEMATOLOGY 2018-07-22 11:17:0023.4[facility] BuwbsghSCIPDOVDOW0387-49-00 11:17:0015.0[facility] ScadodrIWWYULWASY6026-34-86 11:17:0035.0[facility] SncbfpfNTSQGISAHU9139-21-26 11:17:007.4[facility] ZflpdvbVDSYKOWZEA3647-82-38 11:17:35734Njrigqkr [facility] GIMUIGOKSA1735-88-04 11:17:0020.3[facility] FccrwdjHWFQDIQFDS3353-96-45 11:17:00 1.0[facility] ObgkltmPIJGFTXLLV3094-25-05 11:17:0067.1[facility] HermannHEMATOLOGY 2018-07-22 11:17:003.3[facility] CopzzelOOFLRWKZPV9512-17-93 11:17:003.1[facility] BiwhzxnGAUCUEUETQ6747-09-15 11:17:008.5[facility] VdzkfxwLFKQYKEPTE5966-08-59 11:17:000.4[facility] FgleelbGLGJAXIKJW6288-85-94 11:17:001.0[facility] PTEUOMYMSL0893-07-57 11:17:000.1[facility] GgfphkyFWMUQCNBAS5733-83-36 11:17:00 Negative *NA*(07/22/18 6:17 AM)[facility] HermannCARDIAC XZRSACQ4699-63-96 02:46:8019680Uchrseqe HermannCARDIAC ARWWIHR0713-88-60 02:46:00<0.02[facility] HermannCARDIAC JSNRFLB7480-68-24 02:46:0091[facility] HermannCHEM GARKJ4222-91-36 02:46:0095[facility]annCHEM XYYHK3039-70-94 02:46:003.2[facility] HermannCHEM HSVSM3323-79-66 02:46:00 Test Item Value Reference Range Interpretation Comments A/G Ratio (test code = A/G Ratio) 0.9 1 0.7-1.6 [facility]annCHEM CXYJG1378-57-83 02:46:00 Test Item Value Reference Range Interpretation Comments B/C Ratio (test code = B/C Ratio) 5 1 6-25 [facility]annCHEM UIBZV2482-06-61 02:46:0018.7[facility] HermannCHEM PANEL 2018-07-22 02:46:002[facility] HermannCHEM TSGXQ4954-61-21 02:46:007.6[facility] HermannCHEM NIHZY1475-40-41 02:46:0024[facility] HermannCHEM MSKCV7158-10-80 02:46:0098[facility]annCHEM NPLKU0787-27-38 02:46:004.7[facility] HermannCHEM CJZOA9713-60-11 02:46:25507Lzvxvvxh HermannCHEM OJUWE9414-87-63 02:46:002.8 [facility]annCHEM CJRFD0240-09-87 02:46:0013[facility] HermannCHEM PANEL 2018-07-22 02:46:009[facility] HermannCHEM ZNJVM2396-27-33 02:46:0057[facility]annCHEM ZYVAJ7309-02-04 02:46:006.0[facility] HermannCHEM FRHCA6570-19-81 02:46:000.4[facility] HermannCHEM SXVOB2797-73-39 02:46:0018.60[facility] CHEM UMUCF7731-98-72 02:46:0089[facility] HermannCHEM ZSQZN9436-77-55 02:46:0095 [facility] GqyfifmFLZJWERWOO1229-60-55 02:46:0066.2[facility] HermannHEMATOLOGY 2018-07-22 02:46:0021.4[facility] KvywtyhLGIQVURDUE5751-37-69 02:46:007.7[facility] ZbudcszXXYMDISTGH3746-24-43 02:46:000.9[facility] UjdctkrPAJVMVSWMW4135-26-87 02:46:001.2[facility] TowcscnFTOFQMJPDL5354-97-32 02:46:000.3[facility] HCFANFGJWK0586-70-81 02:46:000.1[facility] YuoihrnTMLXLUIDIA1965-65-67 02:46:002.7 [facility] DjlqbbqTAZFWJYPFY3056-11-63 02:46:003.5[facility] HermannHEMATOLOGY 2018-07-22 02:46:00 Test Item Value Reference Range Interpretation Comments PT (test code = PT) 14.4 s 12.0-14.7 [facility] XezwhjuXZBZHXSPSV0476-84-08 02:46:00 Test Item Value Reference Range Interpretation Comments INR (test code = INR) 1.12 1 0.85-1.17 [facility] AdtcdmaOCJIOWSJMV8991-08-81 02:46:00 Test Item Value Reference Range Interpretation Comments PTT (test code = PTT) 37.1 s 22.9-35.8 [facility] XfoiuulRCZQTVRCBT4280-60-99 02:46:0014.8[facility] HermannHEMATOLOGY 2018-07-22 02:46:01991Zvdrlqah QomdvfcNFXUIUNVMX5041-96-05 02:46:007.6[facility] BmewqxzCNNBOYGMSQ5914-91-55 02:46:002.83[facility] QmqlcaaICELNWVRYJ0955-85-44 02:46:004.1[facility] DfsmdsaZYNHGLJNXE8874-73-56 02:46:0035.2[facility] HHEQYRVJJZ0655-97-95 02:46:00 Test Item Value Reference Range Interpretation Comments MCH (test code = MCH) 28.8 pg 27.0-31.0 [facility] DkoesvjCEAODQBVMN3783-33-37 02:46:008.1[facility] HermannHEMATOLOGY 2018-07-22 02:46:0081.9[facility] AigpjdzUBYBTKTWVL2225-90-14 02:46:0023.2[facility] HermannCHEM BMCZS0040-58-57 22:52:000.4[facility] HermannCHEM UBFCF8231-75-05 22:52:006.8[facility] HermannCHEM OSADC1839-34-65 22:52:008.1[facility] HermannCHEM BVOEJ6058-43-95 22:52:0024[facility] HermannCHEM MZUUZ9413-65-98 22:52:0019 [facility]annCHEM WDZIC2987-59-75 22:52:003.3[facility] HermannCHEM PANEL 2018-07-20 22:52:00 Test Item Value Reference Range Interpretation Comments A/G Ratio (test code = A/G Ratio) 0.9 1 0.7-1.6 [facility]annCHEM AWPPC6428-40-41 22:52:0019.2[facility] HermannCHEM PANEL 2018-07-20 22:52:003.5[facility] HermannCHEM DFGGQ4273-08-97 22:52:00 Test Item Value Reference Range Interpretation Comments B/C Ratio (test code = B/C Ratio) 5 1 6-25 [facility] DelgttpZVAJJFBVZD7082-39-29 22:52:62641Lkwjlszi HermannHEMATOLOGY 2018-07-20 22:52:006.8[facility] XcyqhfxFYLUOSQPDA9536-89-66 22:52:0035.4[facility] LzxfisgTDIMHGMOJM8352-75-50 22:52:0015.1[facility] EtmeqgqZPZITXYBAW7364-68-68 22:52:0026.1[facility] BbeexycFARZANFLMX0555-44-35 22:52:0081.4[facility] OHDDTCHSFV4719-24-49 22:52:00 Test Item Value Reference Range Interpretation Comments MCH (test code = MCH) 28.8 pg 27.0-31.0 [facility] KjltxlzESSWACVVUL2068-23-74 22:52:005.4[facility] HermannHEMATOLOGY 2018-07-20 22:52:003.20[facility] KlyovqbEBKEZXKPIZ9140-94-04 22:52:009.2[facility] JkiltgsPIFXXURZWZ1193-78-94 22:52:0074.0[facility] DxidrdlIZIUNECYJH2666-33-05 22:52:0015.5[facility] ZnyzsjgDHHXJEFXYB0881-90-62 22:52:006.7[facility] HAYOTIUHAB5485-64-11 22:52:002.8[facility] XmuagvuFJMFAEWTOK3390-68-77 22:52:001.0 [facility] YazasxqMIQVMBAWGJ0877-16-03 22:52:004.0[facility] HermannHEMATOLOGY 2018-07-20 22:52:000.1[facility] VcrgngzRBKJUTODMM5900-29-51 22:52:000.2[facility] BpfopsvJRSTIPJPSJ9277-24-79 22:52:000.8[facility] NbdzadpVUMQWNPLUI4706-66-12 22:52:000.4[facility] HermannCHEM BKJQH8340-64-03 22:52:0086[facility] HermannCHEM IEPQF7912-20-48 22:52:0097[facility]annCHEM KVVSV2625-13-74 22:52:005.2 [facility]annCHEM UYDOH4447-17-71 22:52:20226Qnyumxzh HermannCHEM PANEL 2018-07-20 22:52:0017.30[facility] HermannCHEM WARML8316-53-15 22:52:0098[facility]annCHEM TTPSJ8605-75-57 22:52:003[facility]annCHEM YJZUF7748-49-92 22:52:0070[facility] HermannCHEM CJANO0095-51-25 22:52:0010[facility]annURINE AND IEZKL8473-22-32 15:20:00Small *ABN*(05/23/18 10:20 AM)[facility]UR[facility] AND WEVXU5418-61-62 15:20:00<1[facility]annUR[facility] AND JNNKT2914-56-03 15:20:009[facility]UR[facility] AND OCPEM8731-99-81 15:20:00Negative (05/23/18 10:20 AM)[facility] AND MJAHR6234-70-60 15:20:00Trace *ABN*(05/23/18 10:20 AM)[facility] AND OKGLX2914-18-21 15:20:00Negative *NA*(05/23/18 10:20 AM)[facility] AND LSCRR0807-95-85 15:20:00 Test Item Value Reference Range Interpretation Comments UA pH (test code = UA pH) 6.5 1 5.0-8.0 [facility]annUR[facility] AND GOWKO2727-86-39 15:20:00 Test Item Value Reference Range Interpretation Comments UA Spec Grav (test code = UA Spec 1.008 1 Grav) [facility]UR[facility] OLKHH3969-65-33 15:20:00Slight *ABN*(05/23/18 10:20 AM) [facility] AND AVPXK6449-74-90 15:20:00Yellow *NA*(05/23/18 10:20 AM) [facility]UR[facility] XWED3440-60-14 15:20:709015.0[facility]annURINE CHEM 2018-05-23 15:20:00 Test Item Value Reference Range Interpretation Comments U Prot/Creat (test code = U 6.61 1 Prot/Creat) [facility]UR[facility] CLWB0489-74-68 15:20:0055.00[facility]annURINE CHEM 2018-05-23 15:20:67644.8[facility] HermannANEMIA FTNEY9334-06-02 14:55:0035 [facility] HermannANEMIA UITTN6728-53-00 14:55:80517Htlnatci HermannANEMIA STUDY 2018-05-23 14:55:17535Rdfahokg HermannANEMIA LUSGA1842-18-95 14:55:0097[facility] HermannANEMIA LIFZM6073-35-09 14:55:66211Lwfgqocr HermannCHEM VREQF6710-50-23 14:55:008.0[facility] HermannCHEM OPBPU8496-62-98 14:55:002.5[facility] HermannCHEM CMPJO4411-08-29 14:55:0026.3[facility] HermannCHEM TFBOJ6771-26-73 14:55:003.5 [facility]annCHEM BPGJG0955-91-79 14:55:007[facility] HermannCHEM PANEL 2018-05-23 14:55:0080[facility] HermannCHEM RQRHH0521-97-22 14:55:000.4[facility] HermannCHEM OCDZJ4758-24-77 14:55:004.3[facility] HermannCHEM LTYQG2286-97-74 14:55:0022[facility] HermannCHEM YXNYG1889-18-81 14:55:008.8[facility]annCHEM RWPDL0545-29-37 14:55:008.1[facility] HermannCHEM EYCMW3658-51-93 14:55:0012 [facility]annCHEM CVPKX8864-38-32 14:55:0026[facility] HermannCHEM PANEL 2018-05-23 14:55:0097[facility] HermannCHEM CFJEF6738-65-17 14:55:003.8[facility] HermannCHEM UCCRC7653-78-38 14:55:008.22[facility]annCHEM AQDWY9956-77-81 14:55:49289Vxrjwiov HermannCHEM IXMZB5715-48-09 14:55:0059[facility]annCHEM KFRVI5827-22-13 14:55:0098[facility] HermannCHEM DGFXQ0991-68-19 14:55:003.8 [facility]annCHEM UYPRM7082-63-17 14:55:00 Test Item Value Reference Range Interpretation Comments A/G Ratio (test code = A/G Ratio) 1.1 1 0.7-1.6 [facility]annCHEM SJFAR5978-58-16 14:55:0016.8[facility] HermannCHEM PANEL 2018-05-23 14:55:00 Test Item Value Reference Range Interpretation Comments B/C Ratio (test code = B/C Ratio) 7 04-02 [facility]annDRUG TQQGWZ3402-92-59 14:55:00Negative (05/23/18 9:55 AM)[facility]annDR[facility] JVQJOY7928-54-52 14:55:00Negative (05/23/18 9:55 AM)[facility] KCVUDY4124-58-47 14:55:00Positive *ABN*(05/23/18 9:55 AM)[facility] BQGEMZ4696-73-73 14:55:00Negative (05/23/18 9:55 AM)[facility] HermannDRUG LEYSOW9791-28-23 14:55:00Negative (05/23/18 9:55 AM)[facility]annDRUG SCREEN 2018-05-23 14:55:00See Note (05/23/18 9:55 AM)[facility]annDRUG SCREEN 2018-05-23 14:55:00Negative (05/23/18 9:55 AM)[facility]annDRUG SCREEN 2018-05-23 14:55:00Negative (05/23/18 9:55 AM)[facility]annDRUG SCREEN 2018-05-23 14:55:00Negative (05/23/18 9:55 AM)[facility]annDRUG SCREEN 2018-05-23 14:55:00Positive *ABN*(05/23/18 9:55 AM)[facility]annDRUG SCREEN 2018-05-23 14:55:00See Note 2(05/23/18 9:55 AM)[facility]annDRUG SCREEN 2018-05-23 14:55:00See Note 1(05/23/18 9:55 AM)[facility]annHEMATOLOGY 2018-05-23 14:55:000.3[facility] VqileeuTFZYUYRDIJ0595-75-04 14:55:000.1[facility] OdrbyctQIXDMTFRYI5074-55-11 14:55:003.9[facility] WdamjtvETATIOOWTW0148-51-48 14:55:001.3[facility] SsapirlMLXZFHVWMA5715-61-31 14:55:000.5[facility] XGCHWZIHMZ1790-32-01 14:55:000.9[facility] XswaowuYVVCSIAGGU7738-23-59 14:55:007.7 [facility] OegdfusGCPDIEWBHR2967-13-01 14:55:004.3[facility] HermannHEMATOLOGY 2018-05-23 14:55:0022.0[facility] LfcjirlWPKEQDCKTM5753-49-67 14:55:0065.1[facility] YlmqacfTDAGMKKHAI1800-95-35 14:55:00 Test Item Value Reference Range Interpretation Comments INR (test code = INR) 1.06 1 0.85-1.17 [facility] PagsbhoVGPSVWKQHW6266-57-66 14:55:00 Test Item Value Reference Range Interpretation Comments PT (test code = PT) 13.8 s 12.0-14.7 [facility] FrapeznITDQVYBJNK0096-98-44 14:55:00 Test Item Value Reference Range Interpretation Comments PTT (test code = PTT) 35.0 s 22.9-35.8 [facility] EcjitxaIGVGJDLHMM9141-22-44 14:55:0018.1[facility] HermannHEMATOLOGY 2018-05-23 14:55:008.0[facility] YcpeeulRFOJZUUCKK2111-41-20 14:55:79903Vhqccfxj YyhnfubJCYZITOTOB6744-14-43 14:55:0033.3[facility] OoqjvauIPSRWWZKPB2664-87-98 14:55:004.54[facility] KwlwvmjJKXVBXNCJL2225-43-26 14:55:006.1[facility] ZNYCBDWTSQ4637-80-77 14:55:0080.9[facility] EttlbyrFPZGCSAKHS8171-75-60 14:55:00 36.7[facility] WvogtdyLTNFRESNDY7472-11-85 14:55:00 Test Item Value Reference Range Interpretation Comments MCH (test code = MCH) 27.0 pg 27.0-31.0 [facility] FadoqflEYXOUAJQPW3610-29-57 14:55:0012.2[facility] HermannIMMUNOLOGY 2018-05-23 14:55:00>8.0[facility] ZqmzaueEHZGCJFAFI9797-73-14 14:55:00<0.91 [facility] BdpsdtwJKTXJASJPJ1800-25-48 14:55:00Non-Reactive *NA*(05/23/18 9:55 AM) [facility] ZrdjtpyPEIYGXJNLZ1059-03-28 14:55:00Negative (05/23/18 9:55 AM)[facility] LvamkerSISJMIHOPL8153-19-57 14:55:0018.2[facility] JhjzermSGNZZCQMLP8924-39-18 14:55:007.8[facility] AscwdcfHBQEPPFRPX2445-45-89 14:55:009.5[facility] QCIMYTTTMG6443-84-75 14:55:0060.9[facility] SmguqeoYXMGFJKEJO4054-13-05 14:55:00 3.6[facility] SjvemzkRMMPEEKHGY4241-40-11 14:55:001.47[facility] HermannIMMUNOLOGY 2018-05-23 14:55:008.1[facility] OvnniefKRRAZUCODA8383-39-98 14:55:000.77[facility] NingnkfGFUQPHYJSF0659-61-64 14:55:004.93[facility] VxrjamiCTVTETLJIL2803-29-96 14:55:000.29[facility] YhdkahxOCVUJJELJR5710-93-59 14:55:000.63[facility] FZCRFVFPHJ5544-96-79 14:55:002.18[facility] UzpjlxeRVOHQTOWGW6150-78-74 14:55:00 89.85[facility] QtipmtfGDJEGMNYYP6105-91-91 14:55:07877.11[facility] EUGQGQOLKG1015-62-62 14:55:00>8.0[facility] JkgvyzkLQTFVJKDUY0396-60-97 14:55:00<0.2[facility] XuldktbMJNBNPYAOV7617-34-12 14:55:000.2[facility] HFJKPPQYHG3632-39-67 14:55:00Reactive *ABN*(05/23/18 9:55 AM)[facility] FFPUAONRYT9964-09-75 14:55:00>8.0[facility] GgibpzfDVCNWZRWPZ2620-07-87 14:55:004.5[facility] MgjgkvdWROANMPPMD1952-15-03 14:55:00Negative *NA*(05/23/18 9:55 AM)[facility] QpxxexdVNWLEGFNAU5213-38-88 14:55:00<0.2[facility] OTMVBZCDFQ9486-11-61 14:55:00Negative *NA*(05/23/18 9:55 AM)[facility] EGOMSWHLQE1912-60-22 14:55:00Negative *NA*(05/23/18 9:55 AM)[facility] JHFTKPMNGS2785-56-50 14:55:00Negative *NA*(05/23/18 9:55 AM)[facility] IJFBUE0509-82-16 14:55:00 Test Item Value Reference Range Interpretation Comments VLDL (test code = VLDL) 30 1 [facility] EivoqxmPAGSRH0929-88-01 14:55:0074[facility] KpibkmbOMQIRI7871-43-86 14:55:24516Xvsrycwa FbpsxkuUBJLFA2639-55-93 14:55:0072[facility] HermannLIPIDS 2018-05-23 14:55:73830[place] OmvisfoHWPKFV6956-76-18 14:55:00 Test Item Value Reference Range Interpretation Comments CHD Risk (test code = CHD Risk) 2.44 1 4.00-7.30 [facility] HermannPARATHYROID XUAXRMA9861-11-03 14:55:67786.0[facility] SPECIAL HKABREIWP7676-55-27 14:55:000.46[facility] HermannSPECIAL CHEMISTRY 2018-05-23 14:55:004.9[facility] HermannCARDIAC GKHESJR1717-92-36 12:03:000.04 [facility]annCARDIAC LBGRWYV4006-45-65 12:03:0026[facility] HermannCARDIAC KSOPIKG4378-83-39 07:54:000.02[facility] HermannCARDIAC GTEKFMT5708-64-80 07:54:00 31[facility] HermannCHEM FHRAH0332-10-56 07:54:001.9[facility] HermannCHEM PANEL 2018-04-15 07:54:00 Test Item Value Reference Range Interpretation Comments B/C Ratio (test code = B/C Ratio) 6 1 6-25 [facility] HermannCHEM QGSHQ9588-44-63 07:54:003.3[facility] HermannCHEM PANEL 2018-04-15 07:54:00 Test Item Value Reference Range Interpretation Comments A/G Ratio (test code = A/G Ratio) 0.9 1 0.7-1.6 [facility]annCHEM ABDCA0267-70-76 07:54:007.1[facility] HermannCHEM PANEL 2018-04-15 07:54:003.8[facility] HermannCHEM TGNGW4139-50-41 07:54:0018[facility] HermannCHEM GQZZH8192-05-56 07:54:0014[facility] HermannCHEM KPMCK4401-70-19 07:54:0082[facility] HermannCHEM LGTMA4605-94-01 07:54:000.5[facility] HermannCHEM SXKCG5914-10-26 07:54:0010[facility] HermannCHEM XFSDX2747-36-99 07:54:003.2 [facility]annCHEM RVSPP3859-32-08 07:54:57675Uxtkgjpj HermannCHEM PANEL 2018-04-15 07:54:0095[facility] HermannCHEM TRDNF9604-92-70 07:54:0034[facility] HermannCHEM VIZYS4553-62-34 07:54:005.83[facility] HermannCHEM NFUHA4457-37-52 07:54:25840Fvdfgvam HermannCHEM SGNNX5069-15-06 07:54:0023[facility] HermannCHEM FUKOR3339-82-64 07:54:0015.2[facility] HermannCHEM KNLTH9623-58-40 07:54:008.5 [facility]annCHEM LLQSW4655-39-32 07:54:004.2[facility] HermannHEMATOLOGY 2018-04-15 07:54:001.5[facility] PwawnewMOATHPGMDF7577-94-53 07:54:000.5[facility] JfcftptKHPCGLPZEI9307-16-88 07:54:001.0[facility] ZrvwjpvCYPGDLACSX5748-49-55 07:54:003.5[facility] LjmsebaDBRAIRUKKP4010-02-67 07:54:000.1[facility] NXVXIDQTSQ1304-04-55 07:54:000.2[facility] AknptfsWXQXMLUEVR9023-68-41 07:54:00 26.7[facility] IxswpaxVDFIKFFHVQ3270-94-51 07:54:0061.0[facility] HermannHEMATOLOGY 2018-04-15 07:54:008.0[facility] IcanwgcJESMFUGLQX2328-59-28 07:54:003.3[facility] LcevlkhRYWKIBQIWJ3441-64-96 07:54:005.7[facility] QpbpgylYRVFAVYMOM2346-62-27 07:54:004.48[facility] AvioodhQRVACZCMOS2289-79-17 07:54:0017.7[facility] BYFFCUSUQH6984-84-41 07:54:81874Trlxgiox RsjulirHRPDQUATYP1336-15-14 07:54:007.2 [facility] JdxojraSDKGFYVRFF5381-30-68 07:54:0011.6[facility] HermannHEMATOLOGY 2018-04-15 07:54:0035.5[facility] AygwfuvJLGCUBTCCO7967-40-53 07:54:0032.6[facility] DiketyeACNNONYELZ8380-54-79 07:54:0079.2[facility] OowwlezASNRBTABWC7748-90-85 07:54:00 Test Item Value Reference Range Interpretation Comments MCH (test code = MCH) 25.8 pg 27.0-31.0 [facility] HermannCARDIAC ONPAGDN6439-41-07 02:58:00<0.02[facility] CARDIAC KIJJOSJ9893-31-54 00:12:3584874Lgtakaln HermannCARDIAC QDYBQEX4277-47-48 00:12:0037[facility] HermannCARDIAC CRLIROT3055-76-96 00:12:001.0[facility] CARDIAC BSGLWGG0813-72-95 00:12:00 Test Item Value Reference Range Interpretation Comments CK MB Index (test 2.7 1 See_Comment [Automate d message] The code = CK MB Index) system w [facility] generated this result transmit emerson reference range : <=2.5. The reference range was not used to interpr et this result as erinn l/abnormal. [facility]annCHEM YYARE4548-41-43 00:12:0012[facility] HermannCHEM PANEL 2018-04-15 00:12:0088[facility] HermannCHEM HQSLZ3974-92-38 00:12:0014[facility] HermannCHEM NTLQW5429-44-49 00:12:007.4[facility] HermannCHEM ZGHJJ3330-34-05 00:12:000.5[facility] HermannCHEM RALVD4296-21-15 00:12:0017[facility]annCHEM OXKQY7758-69-86 00:12:003.2[facility] HermannCHEM IDEFG6361-76-25 00:12:008.1 [facility]annCHEM MCMYR2168-59-06 00:12:90233Mitjmnea HermannCHEM PANEL 2018-04-15 00:12:0026[facility]annCHEM OIKTR4976-67-09 00:12:004.94[facility]annCHEM IZCSS4939-89-81 00:12:0024[facility]annCHEM QIPEU9572-22-11 00:12:58307Yiultgtt HermannCHEM HZKQY3974-66-28 00:12:00 Test Item Value Reference Range Interpretation Comments B/C Ratio (test code = B/C Ratio) 5 1 6-25 [facility]annCHEM QMSHO9070-63-67 00:12:0012.3[facility] HermannCHEM PANEL 2018-04-15 00:12:00 Test Item Value Reference Range Interpretation Comments A/G Ratio (test code = A/G Ratio) 0.8 1 0.7-1.6 [facility]annCHEM SEKLX3597-26-41 00:12:004.2[facility] HermannCHEM PANEL 2018-04-15 00:12:60360Kntuldct HermannCHEM CVLMX7161-03-11 00:12:003.3[facility] DaqgizhHBKHTHKXAJ1018-31-45 00:12:005.0[facility] YorcgvyCDVDAKRELQ1188-09-51 00:12:0017.6[facility] FazsxzvAIYZDSYFJH5428-58-26 00:12:0033.5[facility] PSFSALVVAE1041-93-11 00:12:007.3[facility] FtrysolNWCUZFHAYH1425-30-78 00:12:00 4.25[facility] SanmxxfVHUPDJZLLH0979-41-69 00:12:00 Test Item Value Reference Range Interpretation Comments MCH (test code = MCH) 26.0 pg 27.0-31.0 [facility] GgoutmuLJJMNTOQDH1100-34-80 00:12:0077.5[facility] HermannHEMATOLOGY 2018-04-15 00:12:0033.0[facility] GkmqtqpDORVKQFCIR6974-23-65 00:12:0011.1[facility] DmftiimALDEGTQXJK6863-54-18 00:12:37777Tnesndvo FcedibrYXERDSPVRJ0030-10-69 00:12:003.6[facility] DuhshmcVGNOHJLGJE0606-96-53 00:12:000.9[facility] OQEUIEIXOA4592-51-00 00:12:000.1[facility] IdxmhrzWSQGCNBPPB3339-52-20 00:12:000.1 [facility] QfccteuQJQURCHEIB2619-14-33 00:12:000.4[facility] HermannHEMATOLOGY 2018-04-15 00:12:001.0[facility] FttapwqPCQBBMJPCS8864-66-04 00:12:002.0[facility] QdlsxziWHGFGNJOCI4627-75-84 00:12:001+ *ABN*(04/14/18 7:12 PM)[facility] GKNCWADLQJ4119-23-63 00:12:00Normal (04/14/18 7:12 PM)[facility]annHEMATOLOGY 2018-04-15 00:12:0017.2[facility] NhdgfhlMJYYSRKXHQ9886-77-25 00:12:0072.3[facility] JtrplzxJWSSNGXCDE3202-67-50 00:12:007.5[facility] QoedylvLXCTWKMFIZ0146-33-62 12:10:0017.4[facility] HermannCHEM WSPEJ8470-42-67 08:01:002.1[facility] HermannCHEM TYGSR8176-18-21 08:01:005.6[facility] QemghdqZUOBRUSTNYMO6160-25-13 08:01:0017.3 [facility] PyuouwrDRXYIDSYOMGH8713-23-39 08:01:005[facility] HermannELECTROLYTES 2018-03-19 08:01:0094[facility] NkyfwftPOMPCYALPUHB2781-13-14 08:01:0024[facility] XvugbdlDVJOGKJBNGEE8448-06-90 08:01:008.3[facility] OmwhcnpXYKIGWXIYNMW1689-75-90 08:01:07374Bukeyvfh XjitysvPAITYZMQYYGR2890-13-55 08:01:004.3[facility] YFAMDOCLRAPJ7694-17-69 08:01:00251Sjfbgkiu VmoywhcSNQIWLPHQNNL6650-66-09 08:01:0055[facility] TwsutyoMJSCQGNJBXKL6909-16-17 08:01:009.62[facility] VWLKDVBERU3421-86-05 08:01:000.3[facility] HqgodhfLEZITFVFJQ9452-76-94 08:01:00 10.9[facility] IgkxwqdTSKUKTUSFP9695-57-29 08:01:0078.7[facility] HermannHEMATOLOGY 2018-03-19 08:01:008.8[facility] MoahpmhAFMRDPONDW6161-99-09 08:01:000.1[facility] ZvokinrUFWMMHDKSY4982-55-37 08:01:000.9[facility] UvgrptbRWZICBITYE6652-81-91 08:01:001.3[facility] PvfqgrtFZTEWLLTPZ4998-08-51 08:01:001+ *ABN*(03/19/18 3:01 AM)[facility] PhrhhhjUSEKUMWINC1009-32-72 08:01:006.5[facility] HermannHEMATOLOGY 2018-03-19 08:01:000.7[facility] AazgjrhXOMXYFNJMF0962-75-89 08:01:007.9[facility] ExytrkhEZVFATNXLY5998-94-34 08:01:05007Hygclxno SvuzamfZFPNXMPJZK6142-68-46 08:01:00 Test Item Value Reference Range Interpretation Comments MCH (test code = MCH) 26.4 pg 27.0-31.0 [facility] ZrembjbWKWQTQZBIS1099-98-41 08:01:0015.4[facility] HermannHEMATOLOGY 2018-03-19 08:01:0034.2[facility] FmicyozPCOCAHGNKM7775-77-38 08:01:002.99[facility] FjiipqrIHVVXTZCOH3436-77-34 08:01:008.2[facility] DslyseaBYJQCGLHKC4758-02-75 08:01:0023.1[facility] YsqjrhaOTULPMHNYE8428-00-17 08:01:007.9[facility] CTOTPQMAEQ3969-49-00 08:01:0077.1[facility] HermannCHEM IZYVJ9107-56-87 08:29:00 2.3[facility] HermannCHEM KVYQM5191-49-49 08:29:006[facility] HermannCHEM PANEL 2018-03-18 08:29:000.4[facility] HermannCHEM ZSKVQ6428-58-69 08:29:004.0[facility] HermannCHEM ZZLCN5744-29-58 08:29:13985Wsniosjg HermannCHEM JUNED7758-66-01 08:29:0050[facility] HermannCHEM RVWNO1680-62-93 08:29:91005Fcdjlauj HermannCHEM CYIUK7551-08-17 08:29:008.40[facility] HermannCHEM SLROK6140-39-04 08:29:0097 [facility]annCHEM QYFNE2404-73-39 08:29:37173Vvozjmvt HermannCHEM PANEL 2018-03-18 08:29:002.7[facility]annCHEM GTBML9346-05-10 08:29:006.9[facility]annCHEM FFGLH7515-00-31 08:29:008.0[facility]annCHEM ZKSZI9909-64-39 08:29:0026[facility]annCHEM BEOUZ9882-82-94 08:29:009[facility]annCHEM AWWUW7086-73-14 08:29:0012[facility]annCHEM ALGYH0430-98-65 08:29:00 Test Item Value Reference Range Interpretation Comments B/C Ratio (test code = B/C Ratio) 6 1 6-25 [facility]annCHE[facility] HWFOR1010-19-32 08:29:0014.0[facility]annCHEM PANEL 2018-03-18 08:29:004.2[facility]annCHEM KCUOR9977-02-25 08:29:00 Test Item Value Reference Range Interpretation Comments A/G Ratio (test code = A/G Ratio) 0.6 1 0.7-1.6 [facility]annCHEM OPTMW9609-07-35 08:29:005.7[facility] HermannHEMATOLOGY 2018-03-18 08:29:00 Test Item Value Reference Range Interpretation Comments INR (test code = INR) 1.23 1 0.85-1.17 [facility] GzsrqkhCTEHEPCZBT6180-28-30 08:29:00 Test Item Value Reference Range Interpretation Comments PTT (test code = PTT) 42.0 s 22.9-35.8 [facility] LkyhochUHNZRKLAWR7042-01-68 08:29:00 Test Item Value Reference Range Interpretation Comments PT (test code = PT) 15.6 s 12.0-14.7 [facility] YcefqsoXVEQGOMNYC8983-45-25 08:29:001+ *ABN*(03/18/18 3:29 AM)[facility] VdtqrgoTPGDIECMUK4406-13-25 08:29:001.0[facility] ArbbzxkIGMTHSDVYE8387-44-50 08:29:000.1[facility] DsdagkwJODLDKXILA0474-22-49 08:29:000.9[facility] [place] UYZGRCHGMI7321-16-41 08:29:005.0[facility] PuouycuIUXGGSORLS9743-19-73 08:29:001.6 [facility] HffuhdwUNYXSAPTOB1934-06-35 08:29:0013.3[facility] HermannHEMATOLOGY 2018-03-18 08:29:000.5[facility] QonesjmKWJXRRQCUN7925-34-53 08:29:0013.9[facility] KdlorxuCBUHYHKTBG6750-81-84 08:29:0070.7[facility] DiovtexQSBNXXNWPQ8888-90-99 08:29:91459Bqhjumqy RniuuhkQKEIEGMGLU4049-27-48 08:29:007.9[facility] ZNKSFSVDBC7419-89-83 08:29:0033.8[facility] PcmcsleWAWJUIUWEJ4720-72-70 08:29:00 15.0[facility] IrrgbruBVNTDSWPEI3904-71-73 08:29:0021.8[facility] HermannHEMATOLOGY 2018-03-18 08:29:0077.9[facility] ZnhdnkpNHPZYRGSCU2205-84-10 08:29:00 Test Item Value Reference Range Interpretation Comments MCH (test code = MCH) 26.3 pg 27.0-31.0 [facility] BdaysazIBTUYCQBOT4001-06-11 08:29:002.80[facility]annHEMATOLOGY 2018-03-18 08:29:007.4[facility] IwyukcySMUJEFTOMK1991-80-07 08:29:007.1[facility] HgbplufIOTGOQEBGY4093-09-41 21:57:0018.3[facility]annCHEM MCRSR8383-27-32 13:00:000.3[facility] IozcvbxYCSTSCWZRV7237-29-32 13:00:00Negative *NA*(03/17/18 8:00 AM)[facility]annCHEM IADFC2471-57-21 11:05:000.3[facility] HermannCARDIAC ZEJGVEI1599-33-20 08:09:00 Test Item Value Reference Range Interpretation Comments CK MB Index (test 1.2 1 See_Comment [Automate d message] The code = CK MB Index) system w [facility] generated this result transmit emerson reference range : <=2.5. The reference range was not used to interpr et this result as erinn l/abnormal. [facility]annCARDIAC DBHVWGC1289-90-20 08:09:00663Znxlbngq HermannCARDIAC PHWSJKK0171-49-64 08:09:9904721Hcbldstf HermannCARDIAC TOPREWI2073-86-00 08:09:001.5[facility]annCARDIAC QVPQIWL4889-44-82 08:09:00<0.02[facility]annCHEM IUUIX1576-38-80 08:09:0033.0[facility] HermannCHEM DLNEY1981-28-72 08:09:004[facility]annCHEM TGYSC6180-07-57 08:09:0089[facility]annCHEM ANVTW4205-54-94 08:09:0093[facility]annCHEM SDPIP2071-51-85 08:09:004.1 [facility]annCHE[facility] GSCSN8134-21-91 08:09:00 Test Item Value Reference Range Interpretation Comments A/G Ratio (test code = A/G Ratio) 0.7 1 0.7-1.6 [facility]annCHEM NYEMY0449-93-33 08:09:00 Test Item Value Reference Range Interpretation Comments B/C Ratio (test code = B/C Ratio) 7 1 6-25 [facility]annCHE[facility] ZFKRN6973-68-20 08:09:0020.4[facility]annCHEM PANEL 2018-03-17 08:09:000.4[facility]annCHEM JJOXL5395-82-87 08:09:0011[facility]annCHEM JXUPA1564-07-38 08:09:0010[facility]annCHEM GTIOZ0341-21-21 08:09:002.7[facility]annCHEM GLCJH8023-54-21 08:09:0021[facility]annCHEM KDUBW9835-48-02 08:09:006.8[facility]annCHEM KGDXY4962-54-20 08:09:007.5 [facility]annCHEM EEPDM3675-45-04 08:09:42308Qimpaelx HermannCHEM PANEL 2018-03-17 08:09:004.4[facility] HermannCHEM BRICW6740-79-63 08:09:0012.50[facility]annCHEM QFHPT0247-85-85 08:09:0085[facility]annCHEM YZGHK8383-58-26 08:09:67726Tncdwjhr HermannCHEM UFZLE8785-31-64 08:09:001.9[facility]annCHEM XIAJZ9036-96-71 08:09:0065[facility]annCHEM MMSVB5687-57-68 08:09:007.5 [facility] EzetjexMDEBTOHHFM9031-44-98 08:09:000.8[facility] HermannHEMATOLOGY 2018-03-17 08:09:000.5[facility] WdgmkbwQHJMAVAIDN7609-03-15 08:09:000.7[facility] ZtgylljXYHTNLQOZW6060-21-62 08:09:000.5[facility] EtbrvzoCKYHJTVYCR1178-49-07 08:09:007.4[facility] FcmwgtrCLDXPVMJRX7732-29-75 08:09:001+ *ABN*(03/17/18 3:09 AM) [facility] YosuhoaAJAQSOVCZP7036-86-77 08:09:007.7[facility] HermannHEMATOLOGY 2018-03-17 08:09:009.3[facility] VvsaalbQQGJESZLFN8217-60-78 08:09:0082.0[facility] McuiqzqZHHZBEIIHO7468-73-77 08:09:00 Test Item Value Reference Range Interpretation Comments INR (test code = INR) 1.26 1 0.85-1.17 [facility] CwrxhkcQYBTUHGHQQ6042-23-09 08:09:00 Test Item Value Reference Range Interpretation Comments PT (test code = PT) 15.9 s 12.0-14.7 [facility] BccupvpQGGNGMRABL9108-87-52 08:09:00 Test Item Value Reference Range Interpretation Comments MCH (test code = MCH) 26.4 pg 27.0-31.0 [facility] PuxdfscWMYUEHAUIE3430-05-00 08:09:0077.8[facility] HermannHEMATOLOGY 2018-03-17 08:09:0022.2[facility] BwizehdLLECAHKNJU1001-84-35 08:09:007.5[facility] QkwmhtkGPSICPLUCJ8752-10-49 08:09:009.0[facility] VkvdybpDGSGLKOXBT9558-15-21 08:09:002.86[facility] MqliyidZOVULZKKKN7780-80-57 08:09:007.4[facility] SOIXGPVGBU9285-46-71 08:09:09618Tjbbcbxq IdstqhoNSSIHMQCDO5897-69-61 08:09:00 15.1[facility] YeapxvxCFUCFTLHNE2977-20-68 08:09:0034.0[facility] HermannCARDIAC NHFXAMZ5785-17-82 00:37:00 Test Item Value Reference Range Interpretation Comments CK MB Index (test 1.7 1 See_Comment [Automate d message] The code = CK MB Index) system w [facility] generated this result transmit emerson reference range : <=2.5. The reference range was not used to interpr et this result as erinn l/abnormal. [facility]annCARDIAC OXLKGSW2821-76-06 00:37:002.9[facility]annCARDIAC MGCCEGN9417-45-35 00:37:00<0.02[facility]annCARDIAC BHTUCTE8760-26-70 00:37:26026Lkjxgrrd HermannCARDIAC FFFJHWK0527-32-98 00:37:900362Kxmyagmc HermannCHEM UQHQE5029-73-23 00:37:001.9[facility]annCHEM RCAVK5269-49-44 00:37:009.1[facility]annCHEM QLRWL8190-45-77 00:37:005[facility]annCHEM YTBOU9067-42-81 00:37:98422Jkgdsoca HermannCHEM WZDWE1537-29-16 00:37:0023 [facility]annCHE[facility] ROJHK9529-14-54 00:37:0024[facility]annCHEM PANEL 2018-01-23 00:37:00 Test Item Value Reference Range Interpretation Comments A/G Ratio (test code = A/G Ratio) 0.8 1 0.7-1.6 [facility]CHE[facility] ZPQOT1698-61-59 00:37:004.0[facility]annCHEM PANEL 2018-01-23 00:37:000.4[facility]annCHEM FTOOZ7630-02-18 00:37:004.4[facility]annCHEM IODBT7614-02-19 00:37:006.7[facility]annCHEM HBETZ9573-78-60 00:37:86505Teucjjzq HermannCHEM TISQJ9427-99-24 00:37:0011.00[facility] [place] CHEM VMFGI7044-81-75 00:37:0017.4[facility]annCHEM VLJBG9179-89-65 00:37:0025 [facility]annCHE[facility] CXLCU1771-99-85 00:37:0092[facility]annCHEM PANEL 2018-01-23 00:37:003.4[facility]annCHEM YRWER7657-66-08 00:37:007.4[facility]annCHEM FRNDS1921-33-83 00:37:00 Test Item Value Reference Range Interpretation Comments B/C Ratio (test code = B/C Ratio) 8 1 6-25 [facility]annCHE[facility] SJEAM5799-09-55 00:37:0084[facility]annCHEM PANEL 2018-01-23 00:37:58832Mwodklzh YsbkrfpILRDRZNYLS8177-04-31 00:37:0021.5[facility] CtttediEHUAOPTGLE0684-52-91 00:37:001.6[facility] XrnecoeLEQPXDMNOX3706-30-61 00:37:000.3[facility] QyolpynEROJURRVOE1739-52-38 00:37:0063.7[facility] KTATVORBYG5997-33-11 00:37:004.8[facility] TltpqjbCHFUMHUXYS9238-69-98 00:37:003.5 [facility] LuusjxjLRRGPGTUXS8950-75-30 00:37:0010.4[facility] HermannHEMATOLOGY 2018-01-23 00:37:000.9[facility] MotlnyjFFNBDVYRKJ6208-12-48 00:37:000.1[facility] HrafifrXILLTEHLDM8736-74-78 00:37:000.8[facility] HpwjasmALPRNJDXLJ3973-06-62 00:37:00 Test Item Value Reference Range Interpretation Comments INR (test code = INR) 1.06 1 0.85-1.17 [facility] TcdrqfgUCLZLWZWXW9735-77-67 00:37:00 Test Item Value Reference Range Interpretation Comments PT (test code = PT) 13.8 s 12.0-14.7 [facility] RxddoraUPTABKQKTS2846-65-60 00:37:00 Test Item Value Reference Range Interpretation Comments PTT (test code = PTT) 35.7 s 22.9-35.8 [facility] LbxixkbCNIIBBCFFZ1968-92-31 00:37:38564Dfrgkrfr HermannHEMATOLOGY 2018-01-23 00:37:007.5[facility] KbfnettKQEIMAOIZS4404-11-12 00:37:0025.4[facility] JywfhqqDODIHGZAJL5152-52-01 00:37:0080.3[facility] JsbgqhtMOLBDSVBUU3032-96-64 00:37:00 Test Item Value Reference Range Interpretation Comments MCH (test code = MCH) 28.2 pg 27.0-31.0 [facility] UzjsoodAWXWSTMMSB0487-88-70 00:37:008.9[facility] HermannHEMATOLOGY 2018-01-23 00:37:0035.1[facility] AnceuccTRQAIKZWZN4302-47-30 00:37:0013.9[facility] AoyvadnSSAEDKERLO1466-81-87 00:37:007.6[facility] GfkqgaaYZLUFOGPIC9287-49-49 00:37:003.16[facility]annURINE AND JFGGB2499-54-64 00:37:0050[facility] [place] URINE AND YQSGY3153-32-80 00:37:008[facility]UR[facility] AND RISHQ0273-91-14 00:37:00Small *ABN*(01/22/18 7:37 PM)[facility] VYKJR9839-62-33 00:37:00 Test Item Value Reference Range Interpretation Comments UA pH (test code = UA pH) 6.0 1 5.0-8.0 [facility] XZUFM8379-30-30 00:37:00Clear (01/22/18 7:37 PM) [facility] VTCEQ2510-74-65 00:37:00 Test Item Value Reference Range Interpretation Comments UA Spec Grav (test code = UA Spec 1.005 1 Grav) [facility] DJZWS4916-05-16 00:37:00Negative (01/22/18 7:37 PM) [facility] WAFAQ5930-84-79 00:37:00Small *ABN*(01/22/18 7:37 PM) [facility] ZINZT4394-58-08 00:37:00Negative *NA*(01/22/18 7:37 PM) [facility]annCHEM VCJDI0470-11-30 10:09:001.8[facility] HermannCHEM PANEL 2017-12-20 10:09:004[facility]annCHEM NIVZR6880-65-66 10:09:0011.60[facility]annCHEM AIEUA0551-58-89 10:09:006.9[facility]annCHEM GOZMG3088-26-47 10:09:0027[facility]annCHEM FQJTB6568-22-94 10:09:03186Zrnvkzpn HermannCHEM DCFLU5270-15-27 10:09:0094[facility]annCHEM FTVTX0947-37-34 10:09:003.7 [facility]annCHEM ZFJAX9175-50-65 10:09:01817Pewjxhhg HermannCHEM PANEL 2017-12-20 10:09:0085[facility]annCHEM HKYRS0096-23-44 10:09:0015.7[facility] OgidzllXJIDMXGWOM0325-43-56 10:09:000.2[facility] KkhcdvoXAXJIBRQIB2665-44-15 10:09:000.6[facility] HkjtxxrIHDBRRPSKD7611-32-58 10:09:001+ *ABN*(12/20/17 5:09 AM)[facility] KctpaajBPCYBCICZS8541-76-77 10:09:0071.0[facility] HermannHEMATOLOGY 2017-12-20 10:09:001.0[facility] TfejgdpWEQAQIAYOW8394-04-87 10:09:000.8[facility] KyrnbqqHHEHFJZLXY3727-04-18 10:09:004.6[facility] TlwxvogBNFEEKIZAI3184-22-88 10:09:0015.7[facility] YjmznkpQNGIOUXQXI4649-15-49 10:09:003.1[facility] [place] YEGXSWBZFO9656-54-81 10:09:009.4[facility] TtmqcutWHIXPOJMOR6980-22-96 10:09:55760 [facility] HrjvapuUKUFZQIAUO8692-70-67 10:09:0077.5[facility] HermannHEMATOLOGY 2017-12-20 10:09:0035.5[facility] BcrwicyXMHDBXFWMM3907-41-75 10:09:00 Test Item Value Reference Range Interpretation Comments MCH (test code = MCH) 27.5 pg 27.0-31.0 [facility] LjeufaxRFXSCTCHYT3967-65-82 10:09:0014.1[facility] HermannHEMATOLOGY 2017-12-20 10:09:007.7[facility] XvlsomvWDIEAOJDMX1216-17-04 10:09:0023.5[facility] SwrdxpyIURYVDQARO3807-23-00 10:09:008.4[facility] RjkwpttAOFOPZJAKH6667-10-00 10:09:003.03[facility] DwjzclkAQJFKRPOSU8439-59-26 10:09:006.5[facility] PARATHYROID CTDJMLY7585-43-45 10:09:000.86[facility] HermannPARATHYROID PROFILE 2017-12-20 10:09:000.86[facility]annURINE AND AGMCB6657-31-72 17:00:00 Positive *ABN*(12/19/17 12:00 PM)[facility]annCHEM DIZCR5756-94-64 12:14:008.2 [facility]annCHE[facility] BHVLC7012-18-39 12:14:00 Test Item Value Reference Range Interpretation Comments A/G Ratio (test code = A/G Ratio) 0.8 1 0.7-1.6 [facility]annCHE[facility] JPOFB2105-46-24 12:14:009[facility]annCHEM PANEL 2017-12-19 12:14:0010[facility]annCHEM CTXXN9816-80-20 12:14:003.5[facility]annCHEM DMOQB9046-48-49 12:14:002.7[facility]annCHEM OLXRF8498-27-99 12:14:004[facility]annCHEM RWTOI4835-95-86 12:14:40984Hkrichez HermannCHEM PSWCP5512-46-89 12:14:000.3[facility]annCHEM VIPXL1146-75-78 12:14:0088 [facility]annCHE[facility] MZZPH9846-69-66 12:14:003.6[facility]annCHEM PANEL 2017-12-19 12:14:0095[facility]annCHEM UDBYY3545-54-09 12:14:93685Xtvsffgx HermannCHEM PVGGQ4310-25-40 12:14:32859Jysglcve HermannCHEM WLKDY6911-56-68 12:14:0011.70[facility]annCHEM WZLYT1012-40-96 12:14:00 Test Item Value Reference Range Interpretation Comments B/C Ratio (test code = B/C Ratio) 9 1 6-25 [facility]annCHE[facility] RBQZE4858-55-41 12:14:006.2[facility]annCHEM PANEL 2017-12-19 12:14:006.5[facility]annCHEM QMHRP3268-48-62 12:14:0014.6[facility]annCHEM LXHNR1815-65-81 12:14:0029[facility] HermannPARATHYROID PROFILE 2017-12-19 12:14:000.88[facility] HermannPARATHYROID GWQBXXE5354-04-30 12:14:00 0.85[facility]annCHEM KMMAC1470-40-03 10:02:004[facility]annCHEM PANEL 2017-12-19 10:02:0092[facility]annCHEM ERCOY3212-38-51 10:02:63909Oimjcrto HermannCHEM URFFJ1871-65-65 10:02:003.6[facility]annCHEM QOTVS3537-63-82 10:02:0097[facility]annCHEM BNWSE5355-83-82 10:02:0011.80[facility]annCHEM IWDWX9417-01-99 10:02:006.8[facility]annCHEM XNOPT6810-47-50 10:02:0027 [facility]annCHE[facility] ETCRT2861-60-01 10:02:0018.6[facility]annCHEM PANEL 2017-12-19 10:02:0096[facility]annCHEM SFZSY8788-81-79 10:02:001.8[facility] PpylhpkZHRGVULAPX0246-61-19 10:02:0014.3[facility] QdiivbfQKRGONGCKZ9002-18-62 10:02:0034.5[facility] FjxbaycNIXRTQEAOT6912-41-49 10:02:00 Test Item Value Reference Range Interpretation Comments MCH (test code = MCH) 26.8 pg 27.0-31.0 [facility] UvfayduCWKPPRWLMN7591-16-12 10:02:008.0[facility] HermannHEMATOLOGY 2017-12-19 10:02:00556Zrgerncv WodxjzcVWMIHEPPOC3046-45-75 10:02:0077.7[facility] GvmwtsaFFDOPIVHQG5318-19-16 10:02:0024.7[facility] KvawgliTJXZSFFXJA8611-34-25 10:02:008.5[facility] BlzykswRXCXOVAINF8594-76-60 10:02:003.17[facility] AQPJNTCLVU8456-26-06 10:02:006.6[facility] GpxlgsfJNBSHCUHUD5052-41-15 10:02:000.7 [facility] SsebftkZDEMUSUJFF8913-57-23 10:02:000.2[facility] HermannHEMATOLOGY 2017-12-19 10:02:001+ *ABN*(12/19/17 5:02 AM)[facility] JckvjsvNPVKHBKXLO8588-14-18 10:02:001.0[facility] XacwkhdTYFEOIYRIX8665-89-11 10:02:000.6[facility] [place] OHFOYOKSPC0374-43-93 10:02:004.7[facility] FimmawyBKWKFBPIBK6048-34-10 10:02:00 10.3[facility] CbaacogJLOGQNDZWT8074-49-15 10:02:002.9[facility]annHEMATOLOGY 2017-12-19 10:02:0015.3[facility] LdlymxoSFDCQUKWET3904-54-99 10:02:0070.9[facility] HermannPARATHYROID SDOGXIR3703-13-24 10:02:000.88[facility] HermannPARATHYROID RQDWTOW3009-99-37 10:02:000.88[facility] HermannCHEM MVBDE3788-97-29 09:55:001.9 [facility]annCHEM PAZBH1464-61-65 09:55:008.8[facility] HermannHEMATOLOGY 2017-12-17 09:32:001+ *ABN*(12/17/17 4:32 AM)[facility] ZcrgfctQBRZZTLVJS4231-04-83 09:32:000.2[facility] FlrjnweXRJPAQTRVQ4886-31-48 09:32:000.6[facility] KCWMSDVQRT5758-28-40 09:32:001.0[facility] QvpdgqjONQQFGDMFX6808-47-81 09:32:003.9 [facility] LhpmypqSPXAPTDRUY6251-00-15 09:32:000.6[facility] HermannHEMATOLOGY 2017-12-17 09:32:002.7[facility] LnydtyjMPUJETYPGF4915-73-07 09:32:0010.4[facility] EfjgyweIERJMMMPWN8938-25-97 09:32:0018.1[facility] LgndvukTDJRLSKSKM4203-08-17 09:32:0068.2[facility] CwzcsyyXYQAZZNZQB8122-06-98 09:32:14563Irrvooao [place] YLBMMZYLIY5397-48-30 09:32:0014.3[facility] PyijnieZLYADWQMEU0217-73-62 09:32:00 8.0[facility] EzycgynLJDBWBEFST8991-34-68 09:32:00 Test Item Value Reference Range Interpretation Comments MCH (test code = MCH) 27.4 pg 27.0-31.0 [facility] KfhyuaiJVUUYSYJQI8537-57-78 09:32:0078.6[facility] HermannHEMATOLOGY 2017-12-17 09:32:0022.8[facility] LpqbdrtIAFRPKFLJU8053-92-79 09:32:0034.9[facility] WmnosvkHYCTWJWQDD1343-54-81 09:32:007.9[facility] DnlfrjqVLCJRBZFRN8352-63-95 09:32:002.90[facility] NzdyhfkQXHOOBBLGN7611-25-09 09:32:005.7[facility] DQJUKBYHAO5059-45-64 09:32:0080[facility] BztmcwqJULFJFZSFI8779-67-14 09:32:007.0 [facility] WfqcxonDSDPWNFZHD9447-98-34 09:32:001.13[facility] HermannIMMUNOLOGY 2017-12-17 09:32:000.83[facility] AspygqbKAXIDGHHWY1393-11-98 09:32:000.85[facility] VjevmsmCEADQTPWAS7406-42-89 09:32:000.48[facility] VjckdjlGYJIPWNMFJ6651-13-55 09:32:003.72[facility] YhljzgoICPWVPIAXJ4189-29-34 09:32:0011.8[facility] VWDTQMKELK7370-01-89 09:32:0016.2[facility] WkralydOTKGKDHDTT8653-11-02 09:32:00 12.1[facility] YzeunblYSERDGVZZH1566-89-24 09:32:006.8[facility] HermannIMMUNOLOGY 2017-12-17 09:32:0053.1[facility] GxjxenqVCYCKYZCVW6502-18-48 09:32:0091[facility] IhiijvqBYWSMEJUFC9184-03-72 09:32:0029[facility] BxxbgydCZDWLAAOYU4947-32-11 09:32:00Negative (12/17/17 4:32 AM)[facility] VdcoomgTSKXZAFICX5033-28-14 09:32:00 Negative (12/17/17 4:32 AM)[facility] KkimhrzQPKLFEFBFU4360-55-32 09:32:00Negative *NA*(12/17/17 4:32 AM)[facility] ZsbblciPLXJRSGWNO5422-16-69 09:32:00<3.1 [facility] WhpxutaDEBYWEOWQI4926-39-18 09:32:00Negative *NA*(12/17/17 4:32 AM) [facility] OvatkybDIEVPQQRKZ1288-47-45 09:32:00Negative (12/17/17 4:32 AM)[facility] GdojaznAPCTJJWLZG1927-96-99 09:32:003.42[facility] PhzezbuSLIOAFISME9790-94-36 09:32:55814.40[facility] DzjjvvsKEGMVUQOJG3139-82-15 09:32:0059.41[facility] [place] DRSSIVUWSW1542-11-22 09:32:00Negative (12/17/17 4:32 AM)[facility] SMFMFDJEUW5280-72-04 09:32:00<10[facility] HermannANEMIA WXULK0325-07-16 22:29:0012[facility] HermannANEMIA TMRLE3515-75-25 22:29:87836Mjspqevi [place] ANEMIA LKGNN6355-22-34 22:29:01447Wndrdidv HermannANEMIA SHDHG9258-72-46 22:29:0034[facility] HermannANEMIA UIXAY6141-60-97 22:29:94972Wyugjkhq [place] ANEMIA WOYMD6418-23-73 22:29:30261Uzypoxbe HermannANEMIA MKLKR1263-51-67 22:29:0019.0[facility] HermannCHEM BCVRN7467-57-82 22:29:0012.3[facility] PARATHYROID SVYREAT6680-65-53 22:29:83907.7[facility] AnshxrlOKWFVPKZOB3988-77-92 20:13:001.5[facility] HermannCARDIAC TCCQYOW4823-51-89 20:12:00<0.02[facility] HermannCARDIAC OYSFPZG3238-31-35 20:12:66209Lwbnwvib HermannCARDIAC ENZYMES 2017-12-15 20:12:005.4[facility] HermannCARDIAC LSKSNPB8154-11-34 20:12:00 Test Item Value Reference Range Interpretation Comments CK MB Index (test 1.4 1 See_Comment [Automate d message] The code = CK MB Index) system w [facility] generated this result transmit emerson reference range : <=2.5. The reference range was not used to interpr et this result as erinn l/abnormal. [facility]annCHEM GVVEF0722-95-11 20:12:000.4[facility]annCHEM PANEL 2017-12-15 20:12:0014[facility]annCHEM [id number] 20:12:0017[facility]annCHE[facility] [id number] 20:12:80515Kavyramn HermannCHEM [id number] 20:12:003.4[facility]annCHE[facility] [id number] 20:12:007.4[facility]annCHE[facility] [id number] 20:12:00 Test Item Value Reference Range Interpretation Comments B/C Ratio (test code = B/C Ratio) 9 1 6-25 [facility] [id number] 20:12:00 Test Item Value Reference Range Interpretation Comments A/G Ratio (test code = A/G Ratio) 0.8 1 0.7-1.6 [facility] [id number] 20:12:004.0[facility]CARD[facility] ENZYMES 2017-12-15 16:39:00<0.02[facility] [id number] 16:39:35766 [facility] [id number] 16:39:004.8[facility] [id number] 16:39:00 Test Item Value Reference Range Interpretation Comments CK MB Index (test 1.4 1 See_Comment [Automate d message] The code = CK MB Index) system w [facility] generated this result transmit emerson reference range : <=2.5. The reference range was not used to interpr et this result as erinn l/abnormal. [facility] [id number] 14:38:0020.0[facility] CHEM 2017-12-15 14:38:0031[facility] [id number] 14:38:0022[facility] [id number] 14:38:39578.9[facility] [id number] 14:38:00 Test Item Value Reference Range Interpretation Comments U Prot/Creat (test code = U 4.35 1 Prot/Creat) [facility] [id number] 14:38:0056.70[facility] CHEM 2017-12-15 14:38:89742Oxatbwzp HermannURINE [id number] 14:38:00None Seen (12/15/17 8:38 AM)[facility] AND [id number] 14:33:00Performed *NA*(12/15/17 8:33 AM)[facility] [id number] 14:33:0050[facility] [id number] 14:33:00Negative (12/15/17 8:33 AM)[facility] [id number] 14:33:00Small *ABN*(12/15/17 8:33 AM)[facility] [id number] 14:33:00Negative (12/15/17 8:33 AM)[facility] [id number] 14:33:003[facility] AND STOOL 2017-12-15 14:33:001[facility] AND [id number] 14:33:00Slight *ABN*(12/15/17 8:33 AM)[facility] [id number] 14:33:00 Test Item Value Reference Range Interpretation Comments UA Spec Grav (test code = UA Spec 1.008 1 Grav) [facility] [id number] 14:33:00 Test Item Value Reference Range Interpretation Comments UA pH (test code = UA pH) 5.0 1 5.0-8.0 [facility] [id number] 14:33:00Negative *NA*(12/15/17 8:33 AM) [facility] [id number] 12:48:00 Test Item Value Reference Range Interpretation Comments CK MB Index (test 1.3 1 See_Comment [Automate d message] The code = CK MB Index) system w [facility] generated this result transmit emerson reference range : <=2.5. The reference range was not used to interpr et this result as erinn l/abnormal. [facility]CARD[facility] [id number] 12:48:254731Krteeekk HermannCARDIAC [id number] 12:48:45651Jpsuamsk HermannCARDIAC [id number] 12:48:00 4.8[facility]CARD[facility]AC [id number] 12:48:00<0.02[facility]M [id number] 12:48:00 Test Item Value Reference Range Interpretation Comments A/G Ratio (test code = A/G Ratio) 0.8 1 0.7-1.6 [facility]CHE[facility] [id number] 12:48:007.0[facility]annCHEM PANEL 2017-12-15 12:48:003.9[facility]annCHEM [id number] 12:48:003.1[facility]annCHE[facility] [id number] 12:48:000.4[facility]annCHEM [id number] 12:48:51357Hdirdemo HermannCHEM [id number] 12:48:0015[facility]annCHEM [id number] 12:48:0013MeMethod[facility] CenterCHE[facility] [id number] 12:48:00 Test Item Value Reference Range Interpretation Comments B/C Ratio (test code = B/C Ratio) 9 1 6-25 [id number] 12:48:001.17[facility]
[2021-05-18 05:12] LABS: Basophils % 0.9 % (0-1.3); Hematocrit 32.4 % (39.6-49.0); Lymphocytes % 17.6 % (15.3-44.8); MPV 7.6 fL (7.6-11.3); RBC Red Blood Cell Count 3.74 M/uL (4.33-5.43)
[2021-05-18 05:32] LABS: Protime INR 0.96
[2021-05-18 05:44] LABS: SARS-COV-2 RT PCR NEGATIVE (NEGATIVE)
[2021-05-18 06:05] LABS: Sodium Level 134 mmol/L (136-145)
[2021-05-18 06:06] LABS: ALT/SGPT 20 U/L (12-78); AST/SGOT 16 U/L (15-37); Albumin 3.6 g/dL (3.4-5.0); Alkaline Phosphatase 129 U/L (45-117); BUN Blood Urea Nitrogen 41 mg/dL (7-18); Bicarbonate 25 mmol/L (21-32); Bilirubin Direct < 0.1 mg/dL (0-0.2); Bilirubin Total 0.3 mg/dL (0.2-1.0); Glucose Level 113 mg/dL (74-106); Lipase 155 U/L (73-393); Magnesium 2.5 mg/dL (1.8-2.4); NT PRO-BNP 10755 pg/mL (<125); Potassium 4.4 mmol/L (3.5-5.1); Protein, Total 6.8 g/dL (6.4-8.2); Troponin (Emerg Dept Use Only) < 0.02 ng/mL (0.0-0.045)
--- NOTE | 2021-05-18 06:09 | EDPHYS ---
Physician Documentation [facility] Name: Alex Cagle Age: 60 yrs Sex: Male : 1960 Arrival Date: 05/18/2021 Time: 00:37 Bed DIS1 Private MD: Toya Andrew H ED Physician Ambrocio Alonso HPI: 05/18 04:27 This 60 yrs old Male presents to ER via Wheelchair with complaints of BODY jarrell ACHES. 04:27 PAIN ALL OVER. Onset: The symptoms/episode began/occurred 1 day(s) ago. Severity of jarrell symptoms: At their worst the symptoms were mild moderate in the emergency department the symptoms are unchanged. The patient has experienced similar episodes in the past, a few times. Historical: - Allergies: :57 NKA; bb - PMHx: :57 CHF; Diabetes - NIDDM; ESRD; Hypertension; insomnia; bb - Immunization history:: Adult Immunizations up to date, Client reports receiving the 2nd dose of the Covid vaccine. - Social history:: Smoking status: Patient denies any tobacco usage or history of. ROS: 04:28 Constitutional: Negative for fever, chills, and weight loss, Eyes: Negative for injury, jarrell pain, redness, and discharge, ENT: Negative for injury, pain, and discharge, Neck: Negative for injury, pain, and swelling, Cardiovascular: Negative for chest pain, palpitations, and edema, Respiratory: Negative for shortness of breath, cough, wheezing, and pleuritic chest pain, Abdomen/GI: Negative for abdominal pain, nausea, vomiting, diarrhea, and constipation, Back: Negative for injury and pain, : Negative for injury, bleeding, discharge, and swelling, Skin: Negative for injury, rash, and discoloration, Neuro: Negative for headache, weakness, numbness, tingling, and seizure, Psych: Negative for depression, anxiety, suicide ideation, homicidal ideation, and hallucinations, Allergy/Immunology: Negative for hives, rash, and allergies, Endocrine: Negative for neck swelling, polydipsia, polyuria, polyphagia, and marked weight changes. 04:28 MS/extremity: Positive for decreased range of motion, of the right arm, left arm, right leg and left leg. Exam: 04:28 Constitutional: This is a well developed, well nourished patient who is awake, alert, jarrell and in no acute distress. Head/Face: Normocephalic, atraumatic. Eyes: Pupils equal round and reactive to light, extra-ocular motions intact. Lids and lashes normal. Conjunctiva and sclera are non-icteric and not injected. Cornea within normal limits. Periorbital areas with no swelling, redness, or edema. ENT: Nares patent. No nasal discharge, no septal abnormalities noted. Tympanic membranes are normal and external auditory canals are clear. Oropharynx with no redness, swelling, or masses, exudates, or evidence of obstruction, uvula midline. Mucous membranes moist. Neck: Trachea midline, no thyromegaly or masses palpated, and no cervical lymphadenopathy. Supple, full range of motion without nuchal rigidity, or vertebral point tenderness. No Meningismus. Chest/axilla: Normal chest wall appearance and motion. Nontender with no deformity. No lesions are appreciated. Cardiovascular: Regular rate and rhythm with a normal S1 and S2. No gallops, murmurs, or rubs. Normal PMI, no JVD. No pulse deficits. Respiratory: Lungs have equal breath sounds bilaterally, clear to auscultation and percussion. No rales, rhonchi or wheezes noted. No increased work of breathing, no retractions or nasal flaring. Abdomen/GI: Soft, non-tender, with normal bowel sounds. No distension or tympany. No guarding or rebound. No evidence of tenderness throughout. Back: No spinal tenderness. No costovertebral tenderness. Full range of motion. Male : Normal genitalia with no discharge or lesions. Skin: Warm, dry with normal turgor. Normal color with no rashes, no lesions, and no evidence of cellulitis. MS/ Extremity: Pulses equal, no cyanosis. Neurovascular intact. Full, normal range of motion. Neuro: Awake and alert, GCS 15, oriented to person, place, time, and situation. Cranial nerves II-XII grossly intact. Motor strength 5/5 in all extremities. Sensory grossly intact. Cerebellar exam normal. Normal gait. Psych: Awake, alert, with orientation to person, place and time. Behavior, mood, and affect are within normal limits. 06:16 ECG was reviewed by the Attending Physician. [facility] [place] Vital Signs: 01:51 BP 152 / 89; Pulse 69; Resp 16 S; Temp 98.2(O); Pulse Ox 99% on R/A; Weight 90.72 kg bb (R); Height 5 ft. 7 in. (170.18 cm) (R); Pain 9/10; 07:09 BP 172 / 101; Pulse 63; Resp 18; Temp 97.8; Pulse Ox 100% on R/A; mw2 01:51 Body Mass Index 31.32 (90.72 kg, 170.18 cm) bb MDM: 04:18 Patient medically screened. jarrell 04:28 Differential Diagnosis flu. Data reviewed: vital signs, nurses notes, lab test jarrell result(s), EKG, radiologic studies, plain films. Data interpreted: presentation manager: rate is 69 beats/min, rhythm is regular, Pulse oximetry: on room air is 99 %. Test interpretation: by ED physician or midlevel provider: ECG, plain radiologic studies. Counseling: I had a detailed discussion with the patient and/or guardian regarding: the historical points, exam findings, and any diagnostic results supporting the discharge/admit diagnosis, the presence of at least one elevated blood pressure reading (>120/80) during this emergency department visit, lab results, radiology results. 05/18 04:24 Order name: Basic Metabolic Panel 05/18 04:24 Order name: CBC with Diff 05/18 04:24 Order name: LFT's; Complete Time: 06:07 05/18 04:24 Order name: Magnesium; Complete Time: 06:07 jarrell 05/18 04:24 Order name: NT PRO-BNP; Complete Time: 06:07 05/18 04:24 Order name: PT-INR; Complete Time: 05:53 05/18 04:24 Order name: Troponin (emerg Dept Use Only); Complete Time: 06:07 jarrell 05/18 04:24 Order name: Lipase; Complete Time: 06:07 jarrell 05/18 04:25 Order name: Basic Metabolic Panel; Complete Time: 06:07 EDMS 05/18 04:25 Order name: CBC with Automated Diff; Complete Time: 05:22 EDMS 05/18 04:29 Order name: Flu [facility] 05/18 05:44 Order name: COVID-19/FLU A+B; Complete Time: 05:53 EDMS 05/18 04:24 Order name: XRAY Chest (1 view) [facility] [place] 05/18 04:24 Order name: EKG; Complete Time: 04:25 [facility] 05/18 04:24 Order name: EKG - Nurse/Tech; Complete Time: 06:22 [facility] [place] 05/18 04:24 Order name: IV Saline Lock; Complete Time: 05:14 [facility] [place] 05/18 04:24 Order name: Labs collected and sent; Complete Time: 05:14 [facility] [place] 05/18 04:24 Order name: O2 Per Protocol; Complete Time: 05:14 [facility] [place] 05/18 04:24 Order name: O2 Sat Monitoring; Complete Time: 05:14 [facility] EC:16 Rate is 60 beats/min. Rhythm is regular. QRS [place] is Normal. IA interval is normal. QRS jarrell interval is normal. QT interval is normal. No Q waves. T waves are Normal. No ST changes noted. Clinical impression: NSR w/ Non-specific ST/T Changes and No evidence of ischemia. Interpreted by me. Reviewed by me. Administered Medications: 05:45 Drug: Zofran (Ondansetron) 4 mg Route: IVP; Site: right antecubital; 06:34 Follow up: Response: No adverse reaction 05:45 Drug: morphine 2 mg {Note: RASS 0.} Route: IM; Site: right deltoid; 06:34 Follow up: Response: No adverse reaction; RASS: Alert and Calm (0) bb 06:22 Not Given (Physician Discretion): morphine 2 mg IVP once; (PAIN>8) RASS on ADMN: bb Combtv4, Very Agttd3, Agttd2, Rstlss1, AlertClm0, Drwsy-1, LtSdtn-2, ModSdtn-3, DpSdtn-4, UnArsble-5 x2 06:28 CANCELLED (Duplicate Order): morphine 4 mg IVP once; RASS on ADMIN: Combtv4, Very jarrell Agttd3, Agttd2, Rstlss1, AlertClm0, Drwsy-1, Lt Sdtn-2, Mod Sdtn-3, Dp Sdtn-4, UnArsble-5 06:28 CANCELLED (Duplicate Order): Zofran (Ondansetron) 4 mg IVP once; over 2 minutes [facility] [place] 06:34 Drug: Tylenol 1000 mg Route: PO; bb 06:35 Follow up: Response: Medication administered at discharge. bb Disposition Summary: 05/18/21 06:08 Discharge Ordered Location: Home [facility] Problem: new jarrell Symptoms: have improved jarrell Condition: Stable jarrell Diagnosis - End stage renal disease - on HD jarrell - Other malaise and fatigue jarrell - Type 2 diabetes mellitus with hyperglycemia jarrell - Contact with and (suspected) exposure to other viral communicable diseases - COVID jarrell Followup: jarrell - With: - When: 2 - 3 days - Reason: Recheck today's complaints, Continuance of care, Re-evaluation by your physician Followup: jarrell - With: - When: 1 - 2 days - Reason: Recheck today's complaints, Continuance of care, Re-evaluation by your physician Discharge Instructions: - Discharge Summary Sheet jarrell - Type 2 Diabetes Mellitus, Diagnosis, Adult jarrell - Hyperglycemia jarrell - Diabetes Mellitus and Nutrition, Adult jarrell - Hyperglycemia, [id number] jarrell - Eating Plan for Dialysis, [id number] [facility] [place] Forms: - Medication Reconciliation Form [facility] - Thank You Letter [facility] - Antibiotic Education [facility] - Prescription Opioid Use [facility] [place] Prescriptions: - ivermectin 3 mg Oral tablet - take 4 tablet by ORAL route once daily DAYS 1 AND 3.; 8 tablet; Refills: 0, [facility] [place] Product Selection Permitted - Pepcid 20 mg Oral Tablet - take 1 tablet by ORAL route every 12 hours for 15 days; 30 tablet; Refills: 0, [facility] [place] Product Selection Permitted Signatures: Dispatcher [employer] EDMS Ambrocio Alonso MD MD cha Ballard, Brenda RN RN bb Corrections: (The following items were deleted from the chart) 04:27 04:25 CORONAVIRUS+MRVeraLAB.SINA ordered. EDMS EDMS 04:58 04:30 Influenza Screen (A ordered. EDMS EDMS 06:28 06:27 morphine 4 mg IVP once; RASS on ADMIN: Combtv4, Very Agttd3, Agttd2, Rstlss1, jarrell AlertClm0, Drwsy-1, Lt Sdtn-2, Mod Sdtn-3, Dp Sdtn-4, UnArsble-5 ordered. [facility] [place] 06:28 06:27 Zofran (Ondansetron) 4 mg IVP once; over 2 minutes ordered. [facility]
--- NOTE | 2021-05-18 06:09 | ER ---
Nurse's Notes [facility] Name: Alex Cagle Age: 60 yrs Sex: Male : 1960 Arrival Date: 05/18/2021 Time: 00:37 Bed DIS1 Private MD: Toya Andrew H Diagnosis: End stage renal disease-on HD;Other malaise and fatigue;Type 2 diabetes mellitus with hyperglycemia;Contact with and (suspected) exposure to other viral communicable diseases-COVID Presentation: 05/18 01:51 Chief complaint: Patient states: he had dialysis today took his usual nap but bb afterwards he normally feels better but he didn't this time he felt worse and is just feeling worse and worse. Coronavirus screen: muscle pain, Client presents with at least one sign or symptom that may indicate coronavirus-19. Standard/surgical mask placed on the client. Ebola Screen: No symptoms or risks identified at this time. Initial Sepsis Screen: Does the patient meet any 2 criteria? No. Patient's initial sepsis screen is negative. Does the patient have a suspected source of infection? No. Patient's initial sepsis screen is negative. Risk Assessment: Do you want to hurt yourself or someone else? Patient reports no desire to harm self or others. Onset of symptoms was May 17, 2021. 01:51 Method Of Arrival: Wheelchair bb 01:51 Acuity: DEJAN 3 bb Triage Assessment: 01:57 General: Appears in no apparent distress. uncomfortable, Behavior is calm, cooperative. bb Pain: Complains of pain in all over Pain currently is 9 out of 10 on a pain scale. Neuro: Level of Consciousness is awake, alert, obeys commands, Oriented to person, place, time. Cardiovascular: Capillary refill < 3 seconds Patient's skin is warm and dry. Respiratory: Respiratory effort is even, unlabored, Respiratory pattern is regular. GI: Abdomen is non-distended. Derm: Skin is pink, warm \T\ dry. Musculoskeletal: Circulation, motion, and sensation intact. Historical: - Allergies: :57 NKA; bb - PMHx: :57 CHF; Diabetes - NIDDM; ESRD; Hypertension; insomnia; bb - Immunization history:: Adult Immunizations up to date, Client reports receiving the 2nd dose of the Covid vaccine. - Social history:: Smoking status: Patient denies any tobacco usage or history of. Screenin:30 Abuse screen: Denies threats or abuse. Nutritional screening: No deficits noted. bb Tuberculosis screening: No symptoms or risk factors identified. Fall Risk None identified. Assessment: 04:30 Reassessment: No changes from previously documented assessment. Patient is alert, bb oriented x 3, equal unlabored respirations, skin warm/dry/pink. 05:45 Reassessment: Patient is alert, oriented x 3, equal unlabored respirations, skin bb warm/dry/pink. IV to right AC infiltrated, discontinued with catheter intact, no bleeding. 07:19 Reassessment: Patient is alert, oriented x 3, equal unlabored respirations, skin bb warm/dry/pink. pt verbalized understanding of and agrees to plan of care discharge instructions given pt assisted to exit via wheelchair accompanied by family. Vital Signs: 01:51 BP 152 / 89; Pulse 69; Resp 16 S; Temp 98.2(O); Pulse Ox 99% on R/A; Weight 90.72 kg bb (R); Height 5 ft. 7 in. (170.18 cm) (R); Pain 9/10; 07:09 BP 172 / 101; Pulse 63; Resp 18; Temp 97.8; Pulse Ox 100% on R/A; mw2 01:51 Body Mass Index 31.32 (90.72 kg, 170.18 cm) ED Course: 00:37 Patient arrived in ED. es 00:37 Toya Andrew DO is Private Physician. es 01:57 Triage completed. bb 01:57 Arm band placed on Patient placed in waiting room, Patient notified of wait time. bb Family accompanied patient. 04:18 Ambrocio Alonso MD is Attending Physician. jarrell 04:30 Patient has correct armband on for positive identification. bb 04:50 Inserted saline lock: 20 gauge in right antecubital area, using aseptic technique. bb 05:12 Lisa Azar, KATIANA is Primary Nurse. bb 05:49 XRAY Chest (1 view) In Process Unspecified. EDMS 06:07 Toya Andrew DO is Referral Physician. jarrell 06:07 Constantin Ellison MD is Referral Physician. jarrell 07:19 No provider procedures requiring assistance completed. IV discontinued, intact, bb bleeding controlled, No redness/swelling at site. Pressure dressing applied. Administered Medications: 05:45 Drug: Zofran (Ondansetron) 4 mg Route: IVP; Site: right antecubital; 06:34 Follow up: Response: No adverse reaction 05:45 Drug: morphine 2 mg {Note: RASS 0.} Route: IM; Site: right deltoid; 06:34 Follow up: Response: No adverse reaction; RASS: Alert and Calm (0) 06:22 Not Given (Physician Discretion): morphine 2 mg IVP once; (PAIN>8) RASS on ADMN: bb Combtv4, Very Agttd3, Agttd2, Rstlss1, AlertClm0, Drwsy-1, LtSdtn-2, ModSdtn-3, DpSdtn-4, UnArsble-5 x2 06:28 CANCELLED (Duplicate Order): morphine 4 mg IVP once; RASS on ADMIN: Combtv4, Very jarrell Agttd3, Agttd2, Rstlss1, AlertClm0, Drwsy-1, Lt Sdtn-2, Mod Sdtn-3, Dp Sdtn-4, UnArsble-5 06:28 CANCELLED (Duplicate Order): Zofran (Ondansetron) 4 mg IVP once; over 2 minutes [facility] 06:34 Drug: Tylenol 1000 mg Route: PO; 06:35 Follow up: Response: Medication administered at discharge. bb Outcome: 06:08 Discharge ordered by . [facility] 07:19 Discharged to home via wheelchair, with family. 07:19 Condition: stable 07:19 Discharge instructions given to patient, Instructed on discharge instructions, follow up and referral plans. medication usage, Demonstrated understanding of instructions, follow-up care, medications, Prescriptions given X 2. 07:20 Patient left the ED. bb Signatures: Dispatcher [employer] Ambrocio Birch MD MD cha Salyer, Edna es Ballard, Brenda, RN RN Tami Arreola mw2
[2021-05-18] MEDS ORDERED: ONDANSETRON 4 MG/2 ML VIAL ONE (06:10)
[2021-05-18] MEDS ORDERED: MORPHINE 2 MG/ML SYR ONE (06:10)
[2021-05-18] MEDS ORDERED: ACETAMINOPHEN 500 MG TAB ONE (06:52)
[2021-05-18 07:56] VITALS: BP 172/101; TEMP 97.8; O2SAT 100
--- NOTE | 2021-05-18 08:39 | RAD REPORT ---
EXAM DESCRIPTION: RAD - Chest Single View - 05/18/2021 5:49 am CLINICAL HISTORY: COUGH COMPARISON: December 2020 TECHNIQUE: AP portable chest image was obtained 05/18/2021 5:49 am . FINDINGS: Lung volumes are very low. Bilateral atelectasis changes are present potentially masking a minimal infiltrate. Upper lobe vasculature within normal limits. No significant pulmonary edema iden tifiable. Left-sided dialysis catheter remains in place. Heart and vasculature are normal. No measura ble pleural effusion and no pneumothorax. No acute bony abnormality seen. No acute aortic findings pederson spected. IMPRESSION: Limited low lung volume examination showing bibasilar atelectasis. No pulmonary edema or volume overload identifiable.
--- NOTE | 2021-05-19 07:33 | EKG ---
Test Date: 2021-05-18 Test Time: 06:10:31 Janitor Caretaker: DAMEON MEASUREMENT RESULTS: Intervals: Rate: 60 HI: 200 QRSD: 88 QT: 462 QTc: 462 [place]: P: 49 HI: 200 QRS: 90 T: 53 INTERPRETIVE STATEMENTS: Normal sinus rhythm Rightward axis Borderline ECG Compared to ECG 01/01/2021 14:08:17 Right-axis deviation now present Electronically Signed On 05-19-21 07:31:17 CDT by Deon Lawton
== END 2021-05-18 07:20 | disposition home or self-care (01) ==
LOC: ER 00:33
DX: R53.81 Other malaise (principal); R53.83 Other fatigue; E11.22 Type 2 diabetes mellitus with diabetic chronic kidney disease; E11.65 Type 2 diabetes mellitus with hyperglycemia; I12.0 Hypertensive chronic kidney disease with stage 5 chronic kidney disease or end stage renal disease; N18.6 End stage renal disease; Z99.2 Dependence on renal dialysis; Z20.822 Contact with and (suspected) exposure to COVID-19
CPT/HCPCS: 93005; 85025; 80048; 36415; 83735; 85610; 80076; 84484; 83690; 83880; 0240U; 71045; 96372; 96374; 99284; J2270; J2405

== ENCOUNTER 2021-05-20 19:34 | Inpatient (IN) | payer OTHER ==
--- OUTSIDE RECORDS SUMMARY | 2021-05-20 20:09 | XMS REPORT | Continuity of Care Document ---
:1960 Author Organization [facility] t Address [address] Rodriguez [address] [place] [id number] Care Team Providers Name Role Phone Desirae [...] NEEDING 0- 08:39:00 l DIALYSIS, ESRD 00:00: [place] VOLUME NEEDING 00 OVERLOAD DIALYSIS, VOLUME OVERLOAD Active 08/06/2020 [facility] [address] DR SENT - Diagnosis Active 2019-102020-08-06 Memoria FLUID 0-29 16:50:[address] SENT 00:00: [place] nn - FLUID 00 OVERLOAD Active 08/06/2020 [facility] [place] DIALYSIS Diagnosis Active 2019-102020-07-24 M emoria ISSUE 0 08:37:00 l DIALYSIS 00:00: Rafael n ISSUE 00 Active 07/24/2020 [facility] [place] PERITONITI Diagnosis Active 2020-07-09 Memoria S, 07-06 16:32:00 l DIABETES, 00:00: [place] ESRD ON PERITONITI 00 DIALYSIS S, DIABETES, ESRD ON DIALYSIS Active 07/06/2020 [facility] [place] ABD PAIN Diagnosis Active 2020-07-06 M emoria 07-06 07:06:00 l ABD PAIN 00:00: Rafael n 00 Active 07/06/2020 [facility] [place] WEAKNESS Diagnosis Active 2020-08-04 M emoria AND 05-21 11:45:00 l SWELLING WEAKNESS 00:00: Herm hannah AND 00 SWELLING Active 05/21/2020 [facility] [place] NAUSEA/VOM Diagnosis Active 2020-03-23 Memoria ITING 615 01:05:00 l 00:00: [place] NAUSEA/VOM 00 ITING Active 03/23/2020 [facility] [place] FEVER Diagnosis Active 2020-02-26 Mem oria 02-02 11:06:00 l FEVER 00:00: [place] 00 Active 02/03/2020 [facility] [place] AMS, Diagnosis Active 2019-10-31 Mem oria HYPONATREM 1-20 11:04:00 l IA AMS, 00:00: [place] HYPONATREM 00 IA Active 0 [facility] [place] NUMBNESS Diagnosis Active 2019-10-28 M emoria 1-20 20:30:00 l NUMBNESS 00:00: Rafael n 00 Active 10/28/2019 [facility] [place] AMS Diagnosis Active 2018-102019-09-23 Mem oria 1 21:56:00 l AMS 10:52: [place] 00 Active 08/14/2019 [facility] [place] PNA Diagnosis Active 2019-04-05 Mem oria 04-05 20:15:00 l PNA 00:00: [place] 00 Active 04/05/2019 [facility] [place] DIZZINES, Diagnosis Active 2019-04-15 Memoria PNEUMONIA, 04-05 21:55:00 l END STAGE 00:00: [place] RENAL DIS DIZZINES, 00 PNEUMONIA, END STAGE RENAL DIS Active 04/05/2019 [facility] [place] ESRD Diagnosis Active 2017-102018-12-14 Mem oria NEEDING 0-13 09:50:00 l DIALYSIS, ESRD 00:00: [place] ACUTE NEEDING 00 PULMONARY DIALYSIS, E ACUTE PULMONARY E Active 07/21/[address] Diagnosis Active 2017-102018-07-21 [facility] oria REFERRAL 0-13 21:30:00 l 00:00: [place] REFERRAL 00 Active 07/21/[address] Diagnosis Active 2017-102018-07-20 [facility] oria REFFERAL 0-12 20:08:00 l 00:00: [place] REFFERAL 00 Active 07/20/2018 [facility] [place] RENAL/DO Diagnosis Active 2018-07-31 M emoria NOT USE 05-23 12:39:00 l FOR RENAL/DO 06:00: Rafael n CHARGES NOT USE 00 F/C NOTES FOR O CHARGES F/C NOTES O Active 05/23/2018 [facility] NEW Diagnosis Active 2018-05-23 Mem oria EVALUATION 05-09 10:28:00 l NEW 00:00: [place] EVALUATION 00 Active 05/09/2018 [facility] HYPERTENSI Diagnosis Active 2018-04-16 Memoria VE 04-14 13:14:00 l URGENCY, 08:00: [place] CHEST PAIN HYPERTENSI 00 VE URGENCY, CHEST [facility]IN [facility] Diagnosis Active 2018-04-15 Memoria 04-14 01:42:00 l CHEST 08:00: [place] PAIN 00 Active 04/14/2018 [facility] [place] ACUTE Diagnosis Active 2018-03-19 Mem oria DYSPNEA 03-16 13:39:00 l ACUTE 00:00: [place] DYSPNEA 00 Active 03/16/2018 [facility] [place] WEAKNESS Diagnosis Active 2018-03-17 M emoria 03-16 05:41:00 l WEAKNESS 00:00: Rafael n 00 Active 03/16/2018 [facility] [place] IN NEED OF Diagnosis Active 2018-01-22 Memoria DIALYSIS 01-22 18:51:00 l IN NEED 00:00: [place] OF 00 DIALYSIS Active 01/22/2018 [facility] [place] SOB Diagnosis Active 2017-12-15 Mem oria 12-15 07:37:00 l SOB 00:00: [place] 00 Active 12/15/2017 [facility] [place] ACUTE Diagnosis Active 2017-12-15 Mem oria RENAL 12-15 10:05:00 l FAILURE, ACUTE 00:00: [place] FLUID RENAL 00 OVERLOAD, FAILURE, CHF FLUID OVERLOAD, CHF Active 12/15/2017 [facility] [place] DIZZINESS Diagnosis Active 2019-04-15 Memoria AND 21:55:00 l GIDDINESS [place] DIZZINESS AND GIDDINESS Active [facility] [place] DYSPNEA, Diagnosis Active 2018-03-19 M emoria UNSPECIFIE 13:39:00 l D DYSPNEA, Rafael n UNSPECIFIE D Active [facility] [place] ACUTE Diagnosis Active 2017-12-15 Mem oria KIDNEY 10:05:00 l FAILURE, ACUTE [place] UNSPECIFIE KIDNEY D FAILURE, UNSPECIFIE D Active [facility] [place] HEART Diagnosis Active 2017-12-15 Mem oria FAILURE, 10:05:00 l UNSPECIFIE HEART [place] nn D FAILURE, UNSPECIFIE D Active [facility] [place] ACUTE Diagnosis Active 2018-12-14 Mem oria PULMONARY 09:50:00 l EDEMA ACUTE [place] PULMONARY EDEMA Active [facility] [place] End stage Problem 2020-08-14 Me moria renal 23:33:32 l disease End [place] stage renal disease 08/14/2020 [facility] Type 2 Problem 2019-02-10 Memor ia diabetes 12:48:45 l mellitus Type 2 Rafael n with diabetes diabetic mellitus chronic with kidney diabetic disease chronic kidney disease 02/10/[address] [facility] Hypertensi Problem 2019-02-10 M emoria ve chronic 12:48:45 l kidney [place] disease Hypertensi with stage ve chronic 5 chronic kidney kidney disease disease or with stage end stage 5 chronic renal kidney disease disease or end stage renal disease 02/10/[address] [facility] Dependence Problem 2019-02-10 M emoria on renal 12:48:45 l dialysis [place] Dependence on renal dialysis 02/10/2019 [facility] Anxiety Problem 2019-02-06 Kojo lynn disorder, 14:42:13 l unspecifie Anxiety Her meeks d disorder, unspecifie d 02/06/[address] [facility] Sleep Problem 2019-02-10 Memor ia apnea, 12:48:45 l unspecifie Sleep [place] nn d apnea, unspecifie d 02/10/[address] [facility] Other long Problem 2019-02-06 M emoria term 14:42:13 l (current) Other Rafael n drug terminal gauger therapy (current) drug therapy 02/06/[address] [facility] Pericardia Problem 2019-02-10 M emoria l effusion 12:48:45 l (noninflam Rafael n matory) Pericardia l effusion (noninflam matory) 02/10/2019 [facility] Nausea Problem 2019-02-06 Memor ia 14:42:13 l Nausea [place] 02/06/[address] [facility] Other Problem 2019-02-06 Memor ia symptoms 14:42:13 l and signs Other Rafael n concerning symptoms food and and signs fluid concerning intake food and fluid intake 02/06/[address] [facility] Pneumonia, Problem 2019-04-10 M emoria unspecifie 22:02:39 l d organism Rafael n Pneumonia, unspecifie d organism 04/10/[address] [facility] Altered Problem 2019-11-07 Kojo lynn mental 23:47:53 l status, Altered Rafael n unspecifie mental d status, unspecifie d 11/07/[address] [facility] Acute Problem 2019-02-10 Memor ia pulmonary 12:48:45 l edema Acute [place] pulmonary edema 02/10/[address] [facility] Acute Problem 2019-02-10 Memor ia kidney 12:48:45 l failure, Acute [place] unspecifie kidney d failure, unspecifie d 02/10/[address] [facility] Fluid Problem 2019-02-10 Memor ia overload, 12:48:45 l unspecifie Fluid [place] nn d overload, unspecifie d 02/10/[address] [facility] Obesity, Problem 2019-02-10 Mem oria unspecifie 12:48:45 l d Obesity, Rafael n unspecifie d 02/10/[address] [facility] Body mass Problem 2019-02-10 Me moria index 12:48:45 l (BMI) Body [place] 33.0-33.9, mass index adult (BMI) 33.0-33.9, adult 02/10/[address] [facility] Chronic Problem 2019-02-10 Kojo lynn obstructiv 12:48:45 l e Chronic [place] pulmonary obstructiv disease, e unspecifie pulmonary d disease, unspecifie d 02/10/[address] [facility] Dyspnea, Problem 2018-03-23 Mem oria unspecifie 01:53:56 l d Dyspnea, Rafael n unspecifie d 03/23/[address] [facility] Single Problem 2020-08-10 Memor ia liveborn 09:04:08 l infant, Single [place] delivered liveborn vaginally , delivered vaginally 08/10/[address] [facility] Hypocalcem Problem 2018-03-28 M emoria ia 12:58:31 l [place] Hypocalcem ia 03/28/[address] [facility] Other Problem 2018-03-28 Memor ia disorders 12:58:31 l of Other [place] phosphorus disorders metabolism of phosphorus metabolism 03/28/[address] [facility] Hypo-osmol Problem 2018-03-28 M emoria ality and 12:58:31 l hyponatrem Rafael n ia Hypo-osmol ality and hyponatrem ia 03/28/[address] [facility] Iron Problem 2018-03-28 Memor ia deficiency 12:58:31 l anemia, Iron [place] unspecifie deficiency d anemia, unspecifie d 03/28/[address] [facility] Secondary Problem 2018-03-28 Me moria hyperparat 12:58:31 l hyroidism [place] of 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 03/28/[address] [facility] Acute Problem 2018-03-28 Memor ia diastolic 12:58:31 l (congestiv Acute [place] nn e) heart diastolic failure (congestiv e) heart failure 03/28/[address] [facility] Anemia in Problem 2018-03-28 Ga moria other 12:58:31 l chronic Anemia [place] diseases in other classified chronic elsewhere diseases classified elsewhere 03/28/[address] [facility] Atheroscle Problem 2018-03-28 emoria rosis of 12:58:31 l renal [place] artery Atheroscle rosis of renal artery 03/28/[address] [facility] Obstructiv Problem 2018-03-28 emoria e sleep 12:58:31 l apnea [place] (adult) Obstructiv (pediatric e sleep ) apnea (adult) (pediatric ) 03/28/[address] [facility] Anxiety Problem Resolve 2020-08-14 Mem oria (finding) d 23:33:32 l Anxiety [place] (finding) Resolved Problem 08/14/2020 [facility] Diabetes Problem Resolve 2020-08-14 Ga moria mellitus d 23:33:32 l (disorder) Diabetes He rmann mellitus (disorder) Resolved Problem 08/14/2020 [facility] Hypertensi Problem Resolve 2020-08-14 Memoria ve d 23:33:32 l disorder, [place] systemic Hypertensi arterial ve (disorder) disorder, systemic arterial (disorder) Resolved Problem 08/14/2020 [facility] Sleep Problem Resolve 2020-08-14 Kojo lynn apnea d 23:33:32 l (finding) Sleep Rafael n apnea (finding) Resolved Problem 08/14/2020 [facility] End stage Problem Active 2020-08-14 Ga moria renal 23:33:32 l failure on End Rafael n dialysis stage (disorder) renal failure on dialysis (disorder) Active Problem 08/14/2020 [facility] Pericardia Problem Active 2020-08-14 M emoria l effusion 23:33:32 l (disorder) Rafael n Pericardia l effusion (disorder) Active Problem 08/14/2020 [facility] Simple Problem Active 2020-08-14 Memor ia obesity 23:33:32 l (disorder) Simple Herm hannah obesity (disorder) Active Problem 08/14/2020 [facility] ALTERED Diagnosis Active 2019-10-31 Me moria MENTAL 11:04:00 l STATUS, ALTERED Rafael n UNSPECIFIE MENTAL D STATUS, UNSPECIFIE D Active [facility] [place] PERITONITI Diagnosis Active 2020-07-09 Memoria S, 16:32:00 l UNSPECIFIE Rafael n D PERITONITI S, UNSPECIFIE D Active [facility] [place] HYPO-OSMOL Diagnosis Active 2019-10-31 Memoria ALITY AND 11:04:00 l HYPONATREM Rafael n IA HYPO-OSMOL ALITY AND HYPONATREM IA Active [facility] [place] TYPE 2 Diagnosis Active 2020-07-09 Mem oria DIABETES 16:32:00 l MELLITUS TYPE 2 Rafael n WITHOUT DIABETES COMPLIC MELLITUS WITHOUT COMPLIC Active [facility] [place] END STAGE Diagnosis Active 2020-08-12 Memoria RENAL 08:39:00 l DISEASE END [place] STAGE RENAL DISEASE Active [facility] [place] FLUID Diagnosis Active 2020-08-12 Mem oria OVERLOAD, 08:39:00 l UNSPECIFIE FLUID [place] nn D OVERLOAD, UNSPECIFIE D Active [facility] [place] SINGLE Diagnosis Active 2020-08-09 Mem oria LIVEBORN 07:58:00 l INFANT, SINGLE [place] DELIVERED LIVEBORN VAGINA INFANT, DELIVERED VAGINA Active [facility] [place] PNEUMONIA, Diagnosis Active 2019-04-15 Memoria UNSPECIFIE 21:55:00 l D ORGANISM Rafael n PNEUMONIA, UNSPECIFIE D ORGANISM Active [facility] [place] History of Past Illness Condition Condition Condition Status Onset Resolution Last Treating Co mments Source Name Details Category Date Date Treatment Clinician Date Localized Problem 2019-2020-07-26 2020-07-26 Memoria edema 0-16 21:30:35 21:30:35 l 17:00: [place] Localized 00 edema 07/24/2020 07/26/[address] [facility] Hypokalemi Problem 2019-102020-07-26 2020-07-26 Memoria a 0-16 21:30:35 21:30:35 l 17:00: [place] Hypokalemi 00 a 07[facility]24[facility]2020 [facility] Problem 2020-07-17 2020-07-17 M emoria diabetes 07-06 22:26:03 22:26:03 l mellitus Type 2 17:00: Rafael n without diabetes 00 complicati mellitus ons without complicati ons 07/06/2020 07/17/2020 [facility] Anemia, Problem 2020-05-23 2020-05-23 Memoria unspecifie 8-13 21:26:40 21:26:40 l d Anemia, 17:00: [place] unspecifie 00 d 05/21/2020 05/23/[address] [facility] Constipati Problem 2020-05-23 2020-05-23 Memoria on, 05-21 21:26:40 21:26:40 l unspecifie 17:00: Rafael cee d Constipati 00 on, unspecifie d 05/21/2020 05/23/[address] [facility] Pain in Problem 2020-02-05 2020-02-05 Memoria right hip 02-02 21:56:20 21:56:20 l Pain in 17:00: [place] right hip 00 02/03/2020 02/05/[address] [facility] Fever, Problem 2020-02-05 2020-02-05 M emoria unspecifie 02-02 21:56:20 21:56:20 l d Fever, 17:00: [place] unspecifie 00 d 02/03/2020 02/05/[address] [facility] Unspecifie Problem 2020-02-05 2020-02-05 Memoria d fall, 02-02 21:56:20 21:56:20 l initial 17:00: [place] encounter Unspecifie 00 d fall, initial encounter 02/03/2020 02/05/[address] [facility] Other Problem 2017-102019-02-10 2019-02-10 M emoria specified 12:48:45 12:48:45 l complicati Other 04:09: [place] nn on of specified 04 vascular complicati prosthetic on of devices, vascular implants prosthetic and devices, grafts, implants initial and encounter grafts, initial encounter 07/31/2018 02/10/[address] [facility] Hyperkalem Problem 2017-2019-02-06 2019-02-06 Memoria ia 0-12 14:42:13 14:42:13 l 05:00: [place] Hyperkalem 00 ia 07/20/2018 02/06/[address] [facility] Unspecifie Problem 2017-102019-02-06 2019-02-06 Memoria d 0-12 14:42:13 14:42:13 l complicati 05:00: Rafael cee on of Unspecifie 00 internal d prosthetic complicati device, on of implant internal and graft, prosthetic initial device, encounter implant and graft, initial encounter 07/20/2018 02/06/[address] [facility] Hypertensi Problem 2017-0 2018-03-28 2018-03-28 Memoria ve heart 12-28 12:58:31 12:58:31 l disease 03:49: [place] with heart Hypertensi 05 failure ve heart disease with heart failure 12/28/2017 03/28/[address] [facility] Chronic Problem 2017-2018-01-25 2018-01-25 Memoria kidney 4-16 04:46:18 04:46:18 l disease, Chronic 05:00: [place] nn unspecifie kidney 00 d disease, unspecifie d 01/22/2018 01/25/[address] [facility] Allergies, Adverse Reactions, Alerts This patient has no known allergies or adverse reactions. Social History Social Habit Start Date Stop Date Quantity Comments Source Social History 2019-08-15 2019-08-15 [facility] 14:23:20 14:23:20 Medications Ordered Filled Start Stop Current Ordering Indication Dosage Frequency Signature Comments Components Source Medication Medication Date Date Medication? Clinician (SIG) Name Name fentaNYL 2019-10 No Route: IV, Mem oria (ANES) 10-12 Drug form: l 18:10: INJ, ONCE, Stop date: 08/12/20 12:10:00 [facility] lidocaine 2019-10 No Route: IV, Me moria (ANES) 10-12 Drug form: l 18:10: INJ, ONCE, Stop date: 08/12/20 12:10:00 [facility] propofol 2019-10 No Route: IV, Mem oria (ANES) 10-12 Drug form: l 18:10: INJ, ONCE, [place] Stop date: 08/12/20 12:10:00 [facility] ondansetron 2019-10 No Route: IV, Memoria (ANES) 10-12 Drug form: l 18:10: INJ, ONCE, Stop date: 08/12/20 12:10:00 [facility] metoclopram 2019-10 No Route: IV, Memoria jeanna (ANES) 10-12 Drug form: l 18:10: INJ, ONCE, [place] Stop date: 08/12/20 12:10:00 [facility] fentaNYL 2019-10 No Route: IV, Mem oria (ANES) 10-12 Drug form: l 18:10: INJ, ONCE, Stop date: 08/12/20 12:10:00 [facility] lidocaine 2019-10 No Route: IV, Me moria (ANES) 1- Drug form: l 18:10: INJ, ONCE, Stop date: 08/12/20 12:10:00 [facility] propofol 2019-10 No Route: IV, Mem oria (ANES) - Drug form: l 18:10: INJ, ONCE, Stop date: 08/12/20 12:10:00 [facility] ondansetron 2019-10 No Route: IV, Memoria (ANES) 10-12 Drug form: l 18:10: INJ, ONCE, Stop date: 08/12/20 12:10:00 [facility] metoclopram 2019-10 No Route: IV, Memoria jeanna (ANES) 10-12 Drug form: l 18:10: INJ, ONCE, Stop date: 08/12/20 12:10:00 [facility] ceFAZolin 2019-10 No Route: IV, Me moria (ANES) 10-12 Drug form: l 17:50: INJ, ONCE, Stop date: 08/12/20 11:50:00 [facility] ceFAZolin 2019-10 No Route: IV, Me moria (ANES) - Drug form: l 17:50: INJ, ONCE, Stop date: 08/12/20 11:50:00 [facility] Sodium 2019-10 No Route: IV, Memor ia Chloride -04 Total l 0.9% IV 17:14: Volume: [place] (ANES) 500 00 500, Start mL date: 08/12/20 11:14:00 [facility], Stop date: 08/12/20 12:14:00 [facility] Sodium 2019-10 No Route: IV, Memor ia Chloride 1-04 Total l 0.9% IV 17:14: Volume: [place] (ANES) 500 00 500, Start mL date: 08/12/20 11:14:00 [facility], Stop date: 08/12/20 12:14:00 [facility] Sodium 2019-10 No 500 mL, Memoria Chloride 10-12 Rate: 75 l 0.9% IV 500 16:52: ml/hr, Herm hannah mL 00 Infuse over: 6.7 hr, Route: IV, Dosing Weight 111.182 kg, Total Volume: 500, Start date: 08/12/20 10:52:00 [facility], Duration: 1 doses or times, Stop date: 08/12/20 17:33:00 [facility], 2.32, m2, 0 Sodium 2020- No 500 mL, Memoria Chloride 1-04 Rate: 75 l 0.9% IV 500 16:52: ml/hr, Herm hannah mL 00 Infuse over: 6.7 hr, Route: IV, Dosing Weight 111.182 kg, Total Volume: 500, Start date: 08/12/20 10:52:00 [facility], Duration: 1 doses or times, Stop date: 08/12/20 17:33:00 [facility], 2.32, m2, 0 Potassium 2020- No Notes: Memori a Chloride 1-04 (Same as: l 13:46: K-Dur 20) [place] 00 "Do Not Crush" Give with food and full glass of water For patients unable to swallow tablet, dissolve in one half glass of water. Allow about 2 minutes for the tablets to disintegra te. Stir before giving to prepare slurry and administer . Please exclude Patient s with feeding tube less than 14 Bhutanese (Dobhoff, J-tube etc) and pediatric and patients. Potassium 2020-1 No Notes: Memori a Chloride 1-04 (Same as: l 13:46: K-Dur 20) [place] 00 "Do Not Crush" Give with food and full glass of water For patients unable to swallow tablet, dissolve in one half glass of water. Allow about 2 minutes for the tablets to disintegra te. Stir before giving to prepare slurry and administer . Please exclude Patient s with feeding tube less than 14 [place] (Dobhoff, J-tube etc) and pediatric and patients. Hydralazine 2019-10 No 10 mg, Kojo lynn 1-03 Route: l 21:11: IVP, Q4H, [place] 00 Dosing Weight 111.182, kg, PRN Hypertensi on, Start date: 08/11/20 15:11:00 [facility], Duration: 30 day, Stop date: 09/10/20 15:10:00 [facility] Hydralazine 2019-10 No 10 mg, Kojo lynn 1-03 Route: l 21:11: IVP, Q4H, Dosing Weight 111.182, kg, PRN Hypertensi on, Start date: 08/11/20 15:11:00 [facility], Duration: 30 day, Stop date: 09/10/20 15:10:00 [facility] Potassium 2019-10 No Notes: Memori a Chloride - (Same as: l 14:12: K-Dur 20) "Do Not Crush" Give with food and full glass of water For patients unable to swallow tablet, dissolve in one half glass of water. Allow about 2 minutes for the tablets to disintegra te. Stir before giving to prepare slurry and administer . Please exclude Patient s with feeding tube less than 14 [place] (Dobhoff, J-tube etc) and pediatric and patients. Potassium 2019-10 No Notes: Memori a Chloride - (Same as: l 14:12: K-Dur ) "Do Not Crush" Give with food and full glass of water For patients unable to swallow tablet, dissolve in one half glass of water. Allow about 2 minutes for the tablets to disintegra te. Stir before giving to prepare slurry and administer . Please exclude Patient s with feeding tube less than 14 [place]anese (Dobhoff, J-tube etc) and pediatric and patients. epoetin 2019-10 No Notes: Memoria franca 10-10 (Same as: l 15:00: Procrit) epoetin franca 2000 unit/1 ml VL Non-formul heydi For dialysis use only (Epogen) WASTE: F/P - Red; E -Red MEDICATION WASTE Product Size: 2000 mg Product Wasted: ___ mg epoetin 2019-10 No Notes: Memoria franca 10-10 (Same as: l 15:00: Procrit) epoetin franca 2000 unit/1 ml VL Non-formul heydi For dialysis use only (Epogen) WASTE: F/P - Red; E -Red MEDICATION WASTE Product Size: 2000 mg Product Wasted: ___ mg Ambien 2019-10 No Notes: Memoria 10-10 (Same As: l 04:24: Ambien) Ambien 2019-10 No Notes: Memoria 10-10 (Same As: l 04:24: Ambien) [place] Melatonin 2019-10 No Notes: Kojo lynn MG Extended 10-10 (Same as: l Release 03:57: Melatonin) Herm hannah Tablet 00 Melatonin 2019-10 No Notes: Kojo lynn MG Extended 10-10 (Same as: l Release 03:57: Melatonin) Herm hannah Tablet 00 Ambien 2019-10 No PO, Memoria 10-10 Bedtime, 0 l 02:55: Refill(s) [place] 00 Zolpidem 2019-10 Yes 10 mg = 1 Kojo lynn tartrate 10 10-10 tab, PO, l MG Oral 02:55: Bedtime, Rafael n Tablet 00 PRN for [Ambien] sleep, 0 Refill(s) Ambien 2019-10 No PO, Memoria 10-10 Bedtime, 0 l 02:55: Refill(s) Zolpidem 2019-10 Yes 10 mg = 1 Kojo lynn tartrate 10 10-10 tab, PO, l MG Oral 02:55: Bedtime, Rafael n Tablet 00 PRN for [Ambien] sleep, 0 Refill(s) heparin 2019-10 No 10,000 Memoria 1-01 unit, 10 l 15:10: mL, Route: DIALYSIS, Drug form: INJ, ONCALL, Dosing Weight 111.182, kg, PRN Dialysis, Priority: STAT, Start date: 08/09/20 9:10:00 [facility], Duration: 1 doses or times, Stop date: Limited # of times, 0 heparin 2019-10 No 10,000 Memoria 1-01 unit, 10 l 15:10: mL, Route: DIALYSIS, Drug form: INJ, ONCALL, Dosing Weight 111.182, kg, PRN Dialysis, Priority: STAT, Start date: 08/09/20 9:10:00 [facility], Duration: 1 doses or times, Stop date: Limited # of times, 0 tramadol 2019-10 No Notes: Not Mem oria hydrochlori 10-09 to exceed l de 50 MG 05:16: 400mg/day. Her meeks Oral Tablet 00 (Same As: Ultram) tramadol 2019-10 No Notes: Not Mem oria hydrochlori 10-09 to exceed l de 50 MG 05:16: 400mg/day. Her meeks Oral Tablet 00 (Same As: Ultram) epoetin 2019-10 No Notes: Memoria franca 0-31 (Same as: l 14:30: Procrit) [place] 00 epoetin franca 78311 unit/1 ml VL. Non-formul heydi For dialysis use only. (Procrit) WASTE: F/P - Red; E -Red MEDICATION WASTE Product Size: 47385 unit Product Wasted: ___ unit epoetin 2019-10 No Notes: Memoria franca 0-31 (Same as: l 14:30: Procrit) [place] 00 epoetin franca 69810 unit/1 ml VL. Non-formul heydi For dialysis use only. (Procrit) WASTE: F/P - Red; E -Red MEDICATION WASTE Product Size: 21179 unit Product Wasted: ___ unit Sodium 2020 No 250 mL, Memoria Chloride 0-31 Rate: To l 0.9% 14:13: prime line [place] (titrate) 00 and flush 250 mL remaining blood products., Dosing Weight 111.182, kg, Route: IV, Total Volume: 250, Priority: Routine, Start Date: 08/08/20 9:13:00 CDT, Duration: 1 day, Stop date: 08/09/20 9:12:00 MANAGER HOSPICE, Replace Every: 24 hr, 0 Sodium 2019-10 No 250 mL, Memoria Chloride 0-31 Rate: To l 0.9% 14:13: prime line [place] (titrate) 00 and flush 250 mL remaining blood products., Dosing Weight 111.182, kg, Route: IV, Total Volume: 250, Priority: Routine, Start Date: 08/08/20 9:13:00 CDT, Duration: 1 day, Stop date: 08/09/20 9:12:00 MANAGER HOSPICE, Replace Every: 24 hr, 0 Amlodipine 2019-10 No 1 cap, Memor ia 10 MG / Route: PO, l Benazepril 14:00: Drug Form: H ermann hydrochlori 00 CAP, de 20 MG Dosing Oral Weight Capsule 111.182, kg, Daily, Start date: 08/08/20 9:00:00 CDT, Duration: 30 day, Stop date: 09/06/20 9:00:00 MANAGER HOSPICE carvedilol 2019-10 No 12.5 mg, Mem oria 0-31 Route: PO, l 14:00: Drug form: [place] 00 TAB, Q12H, Dosing Weight 111.182, kg, Start date: 08/08/20 9:00:00 CDT, Duration: 30 day, Stop date: 09/06/20 21:00:00 MANAGER HOSPICE amLODIPine 2019-10 No Notes: Memor ia 0-31 (Same as: l 14:00: Norvasc) [place] lisinopril 2019-10 No Notes: Memor ia 0-31 (Same as: l 14:00: Prinivil, [place] 00 Zestril) Amlodipine 2019-10 No 1 cap, Memor ia 10 MG / 0-31 Route: PO, l Benazepril 14:00: Drug Form: H ermann hydrochlori 00 CAP, de 20 MG Dosing Oral Weight Capsule 111.182, kg, Daily, Start date: 08/08/20 9:00:00 CDT, Duration: 30 day, Stop date: 09/06/20 9:00:00 MANAGER HOSPICE carvedilol 2019-10 No 12.5 mg, Mem oria 0-31 Route: PO, l 14:00: Drug form: [place] 00 TAB, Q12H, Dosing Weight 111.182, kg, Start date: 08/08/20 9:00:00 CDT, Duration: 30 day, Stop date: 09/06/20 21:00:00 MANAGER HOSPICE amLODIPine 2019-10 No Notes: Memor ia 0-31 (Same as: l 14:00: Norvasc) [place] lisinopril 2019-10 No Notes: Memor ia 0-31 (Same as: l 14:00: Prinivil, [place] 00 Zestril) Dilaudid 2019-10 No Notes: Memoria 0-31 Same as: l 13:46: Dilaudid [place] Dilaudid 2019-10 No Notes: Memoria 0-31 Same as: l 13:46: Dilaudid [place] Epogen 2019-10 No 11,000 Memoria 0-31 unit, l 13:01: Route: [place] 00 SUB-Q, Drug form: INJ, Q-M-W-F, Dosing Weight 111.182, kg, Priority: NOW, Start date: 08/08/20 8:01:00 CDT, Duration: 30 day, Stop date: 09/04/20 9:00:00 MANAGER HOSPICE Epogen 2019-10 No 11,000 Memoria 0-31 unit, l 13:01: Route: [place] 00 SUB-Q, Drug form: INJ, Q-M-W-F, Dosing Weight 111.182, kg, Priority: NOW, Start date: 08/08/20 8:01:00 CDT, Duration: 30 day, Stop date: 09/04/20 9:00:00 MANAGER HOSPICE Morphine 2019-10 No Notes: Memoria 0-31 (Same l 10:27: as:MORPhin [place] 00 e Sulfate) Morphine 2019-10 No Notes: Memoria 0-31 (Same l 10:27: as:MORPhin [place] 00 e Sulfate) Morphine 2019-10 No Notes: Memoria 0-31 (Same l 01:44: as:MORPhin [place] 00 e Sulfate) Morphine 2019-10 No Notes: Memoria 0-31 (Same l 01:44: as:MORPhin [place] 00 e Sulfate) normal 2019-10 No 2,000 mL, Memori a saline 0.9% 0-30 Rate: 100 l IV 2,000 mL 22:22: ml/hr, Herm hannah 00 Infuse over: 20 hr, Route: IV, Dosing Weight 111.182 kg, Total Volume: 2,000, Start date: 08/07/20 17:22:00 CDT, Duration: 30 day, Stop date: 09/06/20 17:21:00 MANAGER HOSPICE, 2.32, m2, 0 normal 2019-10 No 2,000 mL, Memori a saline 0.9% 0-30 Rate: 100 l IV 2,000 mL 22:22: ml/hr, Herm hannah 00 Infuse over: 20 hr, Route: IV, Dosing Weight 111.182 kg, Total Volume: 2,000, Start date: 08/07/20 17:22:00 CDT, Duration: 30 day, Stop date: 09/06/20 17:21:00 MANAGER HOSPICE, 2.32, m2, 0 Lasix 2019-10 No 80 mg, Memoria 0-30 Route: l 13:00: IVP, Drug [place] 00 form: INJ, BID Diuretic, Dosing Weight 117.002, kg, Start date: 08/07/20 8:00:00 CDT, Duration: 30 day, Stop date: 09/05/20 16:00:00 MANAGER HOSPICE Lasix 2019-10 No 80 mg, Memoria 0-30 Route: l 13:00: IVP, Drug form: INJ, BID Diuretic, Dosing Weight 117.002, kg, Start date: 08/07/20 8:00:00 CDT, Duration: 30 day, Stop date: 09/05/20 16:00:00 MANAGER HOSPICE Magnesium 2019-10 No Notes: Memori a Sulfate 0-30 WASTE: F/P l 12:58: - Sink; E [place] - Municipal Trash Bin Potassium 2019-10 No Notes: Memori a Chloride 0-30 (Same as: l 12:58: K-Dur 20) [place] 00 "Do Not Crush" Give with food and full glass of water For patients unable to swallow tablet, dissolve in one half glass of water. Allow about 2 minutes for the tablets to disintegra te. Stir before giving to prepare slurry and administer . Please exclude Patient s with feeding tube less than 14 [place] (Dobhoff, J-tube etc) and pediatric and patients. Magnesium 2019-10 No Notes: Memori a Sulfate 0-30 WASTE: F/P l 12:58: - Sink; E [place] 00 - Municipal Trash Bin Potassium 2019-10 No Notes: Memori a Chloride 0-30 (Same as: l 12:58: K-Dur 20) [place] 00 "Do Not Crush" Give with food and full glass of water For patients unable to swallow tablet, dissolve in one half glass of water. Allow about 2 minutes for the tablets to disintegra te. Stir before giving to prepare slurry and administer . Please exclude Patient s with feeding tube less than 14 [place] (Dobhoff, J-tube etc) and pediatric and patients. Potassium 2019-10 No Notes: Memori a Chloride 0-30 Infuse at l 11:00: a rate of [place] 00 10 mEq/hr. (Same as: KCL) Potassium 2019-10 No Notes: Memori a Chloride [...] Duration: 30 day, Stop date: 09/06/20 5:36:00 MANAGER HOSPICE, 2.32, m2 normal 2019-10 No 250 mL, Memoria saline 0.9% 0-30 Rate: 50 l IV 250 mL 10:37: ml/hr, Rafael n 00 Infuse over: 5 hr, Route: IV, Dosing Weight 111.182 kg, Total Volume: 250, Start date: 08/07/20 5:37:00 CDT, Duration: 30 day, Stop date: 09/06/20 5:36:00 MANAGER HOSPICE, 2.32, m2 Hydralazine 2019-10 No Notes: Kojo lynn Hydrochlori 0-30 (Same as: l de 50 MG 06:50: Apresoline Her meeks Oral Tablet 00 ) May interfere w/enteral feedings Take With Food. Hydralazine 2019-10 No Notes: Kojo lynn Hydrochlori 0-30 (Same as: l de 50 MG 06:50: Apresoline Her meeks Oral Tablet 00 ) May interfere w/enteral feedings Take With Food. Ambien 2019-10 No Notes: Memoria 0-30 (Same As: l 05:20: Ambien) [place] Ambien 2019-10 No Notes: Memoria 0-30 (Same As: l 05:20: Ambien) [place] heparin 2019-10 No Notes: Memoria 0-30 porcine l 05:00: heparin [place] heparin 2019-10 No Notes: Memoria 0-30 porcine l 05:00: heparin [place] 00 Lasix 2019-10 No Notes: Memoria 0-30 (Same as: l 01:32: Lasix) [place] MEDICATION WASTE Product Size: 40 mg Product Wasted: ___ mg Lasix 2019-10 No Notes: Memoria 0-30 (Same as: l 01:32: Lasix) [place] MEDICATION WASTE Product Size: 40 mg Product Wasted: ___ mg Ondansetron 2019-10 No Notes: Kojo lynn 0-30 (Same as: l 01:31: Zofran) [place] MEDICATION WASTE Product Size: 4 mg Product Wasted: ___ mg Acetaminoph 2019-10 No Notes: Do M emoria en 325 MG / 0-30 not exceed l Hydrocodone 01:31: 4gm/day of [place] Bitartrate 00 acetaminop 10 MG Oral hen. Tablet (Same as: [[place] 10/325] 325/10) Acetaminoph 2019-10 No Notes: Kojo lynn en 325 MG / 0-30 (Same as: l Hydrocodone 01:31: [place] nn Bitartrate 00 325/5) Do 5 MG Oral not exceed Tablet 4gm/day of [[place] acetaminop 5/325] hen. Ondansetron 2019-10 No Notes: Kojo lynn 0-30 (Same as: l 01:31: Zofran) [place] MEDICATION WASTE Product Size: 4 mg Product Wasted: ___ mg Acetaminoph 2019-10 No Notes: Do M emoria en 325 MG / 0-30 not exceed l Hydrocodone 01:31: 4gm/day of [place] Bitartrate 00 acetaminop 10 MG Oral hen. Tablet (Same as: [[place] 10/325] 325/10) Acetaminoph 2020-1 No Notes: Kojo lynn en 325 MG / 0-30 (Same as: l Hydrocodone 01:31: [place] nn Bitartrate 00 325/5) Do 5 MG Oral not exceed Tablet 4gm/day of [[place] acetaminop 5/325] hen. Dilaudid 2020-1 No 1 mg, Memoria 0-30 Route: l 01:16: IVP, ONCE, Dosing Weight 117.002, kg, Priority: STAT, Start date: 08/06/20 20:16:00 CDT, Stop date: 08/06/20 20:16:00 CDT Dilaudid 2020-1 No 1 mg, Memoria 0-30 Route: l 01:16: IVP, ONCE, Dosing Weight 117.002, kg, Priority: STAT, Start date: 08/06/20 20:16:00 CDT, Stop date: 08/06/20 20:16:00 CDT Dextrose 2020-1 No 12.5 gm, Memor ia 50% Syringe 0-30 25 mL, l (D50W) 01:09: Route: [place] IVP, Drug Form: INJ, Dosing Weight 117.002, kg, PRN, PRN Blood Glucose Results, Start date: 08/06/20 20:09:00 CDT, Duration: 30 day, Stop date: 09/05/20 19:08:00 MANAGER HOSPICE, 0 Glucagon 2020-1 No 1 mg, Memoria 0-30 Route: IM, l 01:09: Drug form: [place] 00 PDR/INJ, PRN, Dosing Weight 117.002, kg, PRN Blood Glucose Results, Start date: 08/06/20 20:09:00 CDT, Duration: 30 day, Stop date: 09/05/20 19:08:00 MANAGER HOSPICE, 0 Dextrose 2020-1 No 12.5 gm, Memor ia 50% Syringe 0-30 25 mL, l (D50W) 01:09: Route: [place] 00 IVP, Drug Form: INJ, Dosing Weight 117.002, kg, PRN, PRN Blood Glucose Results, Start date: 08/06/20 20:09:00 CDT, Duration: 30 day, Stop date: 09/05/20 19:08:00 MANAGER HOSPICE, 0 Glucagon 2020-1 No 1 mg, Memoria 0-30 Route: IM, l 01:09: Drug form: PDR/INJ, PRN, Dosing Weight 117.002, kg, PRN Blood Glucose Results, Start date: 08/06/20 20:09:00 CDT, Duration: 30 day, Stop date: 09/05/20 19:08:00 MANAGER HOSPICE, 0 Magnesium 2019-10 No Notes: Memori a Sulfate 0-30 WASTE: F/P l 00:44: - Sink; E [place] - Municipal Trash Bin Potassium 2019-10 No Notes: Memori a Chloride 0-30 (Same as: l 00:44: K-Dur 20) [place] 00 "Do Not Crush" Give with food and full glass of water For patients unable to swallow tablet, dissolve in one half glass of water. Allow about 2 minutes for the tablets to disintegra te. Stir before giving to prepare slurry and administer . Please exclude Patient s with feeding tube less than 14 [place] (Dobhoff, J-tube etc) and pediatric and patients. Magnesium 2019-10 No Notes: Memori a Sulfate 0-30 WASTE: F/P l 00:44: - Sink; E [place] - Municipal Trash Bin Potassium 2019-10 No Notes: Memori a Chloride 0-30 (Same as: l 00:44: K-Dur 20) [place] "Do Not Crush" Give with food and full glass of water For patients unable to swallow tablet, dissolve in one half glass of water. Allow about 2 minutes for the tablets to disintegra te. Stir before giving to prepare slurry and administer . Please exclude Patient s with feeding tube less than 14 [place] (Dobhoff, J-tube etc) and pediatric and patients. Dilaudid 2019-10 No 1 mg, Memoria 0-29 Route: l 23:27: IVP, ONCE, Dosing Weight 117.002, kg, Priority: STAT, Start date: 08/06/20 18:27:00 CDT, Stop date: 08/06/20 18:27:00 CDT Dilaudid 2019-10 No 1 mg, Memoria 0-29 Route: l 23:27: IVP, ONCE, Dosing Weight 117.002, kg, Priority: STAT, Start date: 08/06/20 18:27:00 CDT, Stop date: 08/06/20 18:27:00 CDT Potassium 2019- No 40 mEq, Memor ia Chloride 0-29 Route: PO, l 22:56: Drug form: [place] 00 ERTAB, ONCE, Dosing Weight 117.002, kg, Priority: STAT, Start date: 08/06/20 17:56:00 CDT, Stop date: 08/06/20 17:56:00 CDT Potassium 2019- No 40 mEq, Memor ia Chloride 0-29 Route: PO, l 22:56: Drug form: [place] 00 ERTAB, ONCE, Dosing Weight 117.002, kg, Priority: STAT, Start date: 08/06/20 17:56:00 CDT, Stop date: 08/06/20 17:56:00 CDT Morphine 2019- No 4 mg, Memoria 0-29 Route: l 22:44: IVP, ONCE, Dosing Weight 117.002, kg, Priority: STAT, Start date: 08/06/20 17:44:00 CDT, Stop date: 08/06/20 17:44:00 CDT Zofran 2019-10 No 4 mg, Memoria 0-29 Route: l 22:44: IVP, Drug form: INJ, ONCE, Dosing Weight 117.002, kg, Priority: STAT, Start date: 08/06/20 17:44:00 CDT, Stop date: 08/06/20 17:44:00 CDT Morphine 2019-10 No 4 mg, Memoria 0-29 Route: l 22:44: IVP, ONCE, Dosing Weight 117.002, kg, Priority: STAT, Start date: 08/06/20 17:44:00 CDT, Stop date: 08/06/20 17:44:00 CDT Zofran 2019-10 No 4 mg, Memoria 0-29 Route: l 22:44: IVP, Drug form: INJ, ONCE, Dosing Weight 117.002, kg, Priority: STAT, Start date: 08/06/20 17:44:00 CDT, Stop date: 08/06/20 17:44:00 CDT potassium 2019-1 Yes 20 mEq = 1 Me moria chloride 20 0-16 tab, PO, l mEq oral 15:32: BID, # 4 [place] nn tablet, 00 tab, 0 extended Refill(s) release (KCL) potassium 2019-10 Yes 20 mEq = 1 [...] 9:59:00 CDT, Stop date: 07/24/20 9:59:00 CDT Potassium 2019-10 No 40 mEq, 15 Me [...] 20 MG Pharmacy: [facility], 170.18, cm, 07/06/20 5:14:00 CDT, Height, 105, kg, 07/06/20 5:14:00 CDT, Weight cefdinir 2019-10 Yes 300 mg = 1 Mem oria 300 MG Oral 0-07 cap, PO, l Capsule 17:35: Daily, X 7 Herm hannah 00 day, # 7 cap, 0 Refill(s), Pharmacy: [facility] [place], 170.18, cm, 07/06/20 5:14:00 CDT, Height, 105, kg, 07/06/20 5:14:00 CDT, Weight Metronidazo 2019-10 Yes 500 mg = 1 Memoria le 500 MG 0-07 tab, PO, l Oral Tablet 17:35: Q8H, X 7 He rmann [Flagyl] 00 day, # 21 tab, 0 Refill(s), Pharmacy: [facility], 170.18, cm, 07/06/20 5:14:00 CDT, Height, 105, kg, 07/06/20 5:14:00 CDT, Weight Amlodipine 2019-10 Yes 1 cap, PO, M emoria 10 MG / 0-07 Daily, # l Benazepril 17:35: 30 cap, 0 He rmann hydrochlori 00 Refill(s), de 20 MG Pharmacy: [facility] [place], 170.18, cm, 07/06/20 5:14:00 CDT, Height, 105, kg, 07/06/20 5:14:00 CDT, Weight cefdinir 2019-10 Yes 300 mg = 1 Mem oria 300 MG Oral 0-07 cap, PO, l Capsule 17:35: Daily, X 7 Herm hannah 00 day, # 7 cap, 0 Refill(s), Pharmacy: [facility], 170.18, cm, 07/06/20 5:14:00 CDT, Height, 105, kg, 07/06/20 5:14:00 CDT, Weight Metronidazo 2019-10 Yes 500 mg = 1 Memoria le 500 MG 0-07 tab, PO, l Oral Tablet 17:35: Q8H, X 7 He rmann [Flagyl] 00 day, # 21 tab, 0 Refill(s), Pharmacy: [facility], 170.18, cm, 07/06/20 5:14:00 CDT, Height, 105, kg, 07/06/20 5:14:00 CDT, Weight Protonix 2019-10 No Notes: Memoria 0-07 Tablet l 12:30: should not [place] 00 be chewed or crushed. (Same as: Protonix) Protonix 2019-10 No Notes: Memoria 0-07 Tablet l 12:30: should not [place] 00 be chewed or crushed. (Same as: Protonix) Potassium 2019-10 No Notes: Memori a Chloride 0-06 (Same as: l 22:47: K-Dur 20) [place] 00 "Do Not Crush" Give with food and full glass of water For patients unable to swallow tablet, dissolve in one half glass of water. Allow about 2 minutes for the tablets to disintegra te. Stir before giving to prepare slurry and administer . Please exclude Patient s with feeding tube less than 14 [place] (Dobhoff, J-tube etc) and pediatric and patients. Potassium 2019-10 No Notes: Memori a Chloride 0-06 (Same as: l 22:47: K-Dur 20) [place] 00 "Do Not Crush" Give with food and full glass of water For patients unable to swallow tablet, dissolve in one half glass of water. Allow about 2 minutes for the tablets to disintegra te. Stir before giving to prepare slurry and administer . Please exclude Patient s with feeding tube less than 14 [place] (Dobhoff, J-tube etc) and pediatric and patients. Clonidine 2019-10 No Notes: Memori a 0-06 (Same As: l 22:46: Catapres) [place] Clonidine 2019-10 No Notes: Memori a 0-06 (Same As: l 22:46: Catapres) [place] Sucralfate 2019-10 No Notes: May M emoria 100 MG/ML 0-06 interfere l Oral 18:00: w/enteral [place] Suspension 00 feeds - [Carafate] Take 1 hr before or 2 hr after antacids, dairy pdt, meals & minerals - On empty stomach. Sucralfate 2019-10 No Notes: May M emoria 100 MG/ML 0-06 interfere l Oral 18:00: w/enteral [place] Suspension 00 feeds - [Carafate] Take 1 hr before or 2 hr after antacids, dairy pdt, meals & minerals - On empty stomach. sevelamer 2019-10 No Notes: Memori a 0-06 Same as: l 17:00: Renvela [place] sevelamer 2019-10 No Notes: Memori a 0-06 Same as: l 17:00: Renvela [place] 00 Potassium 2019-10 No Notes: Memori a Chloride 0-06 (Same as: l 13:00: K-Dur 20) [place] 00 "Do Not Crush" Give with food and full glass of water For patients unable to swallow tablet, dissolve in one half glass of water. Allow about 2 minutes for the tablets to disintegra te. Stir before giving to prepare slurry and administer . Please exclude Patient s with feeding tube less than 14 [place] (Dobhoff, J-tube etc) and pediatric and patients. Potassium 2019-10 No Notes: Memori a Chloride 0-06 (Same as: l 13:00: K-Dur 20) [place] "Do Not Crush" Give with food and full glass of water For patients unable to swallow tablet, dissolve in one half glass of water. Allow about 2 minutes for the tablets to disintegra te. Stir before giving to prepare slurry and administer . Please exclude Patient s with feeding tube less than 14 [place] (Dobhoff, J-tube etc) and pediatric and patients. Ceftriaxone 2019-10 No Notes: Kojo lynn 0-05 (Same As: l 23:00: Rocephin). [place] Use with 100 mL NS and infuse over 30 min MEDICATION WASTE Product Size: 1000 mg Product Wasted: ___ mg Ceftriaxone 2019-10 No Notes: Kojo lynn 0-05 (Same As: l 23:00: Rocephin). [place] Use with 100 mL NS and infuse over 30 min MEDICATION WASTE Product Size: 1000 mg Product Wasted: ___ mg Bentyl 2019-10 No Notes: Memoria 0-05 (Same as: l 22:00: Bentyl) [place] 00 Bentyl 2019-10 No Notes: Memoria 0-05 (Same as: l 22:00: Bentyl) [place] 00 Potassium 2019-10 No Notes: Memori a Chloride 0-05 (Same as: l 12:44: K-Dur 20) [place] "Do Not Crush" Give with food and full glass of water For patients unable to swallow tablet, dissolve in one half glass of water. Allow about 2 minutes for the tablets to disintegra te. Stir before giving to prepare slurry and administer . Please exclude Patient s with feeding tube less than 14 [place] (Dobhoff, J-tube etc) and pediatric and patients. Potassium 2019-10 No Notes: Memori a Chloride 0-05 (Same as: l 12:44: K-Dur 20) [place] 00 "Do Not Crush" Give with food and full glass of water For patients unable to swallow tablet, dissolve in one half glass of water. Allow about 2 minutes for the tablets to disintegra te. Stir before giving to prepare slurry and administer . Please exclude Patient s with feeding tube less than 14 [place] (Dobhoff, J-tube etc) and pediatric and patients. vancomycin 2019-10 No Notes: Memor ia + Sodium 0-04 TIME l Chloride 23:00: CRITICAL [place] nn 0.9% IV 100 00 MEDICATION mL (Same As: Vancocin) For adult patients only: Round to nearest 250 mg per Medical Staff approval vancomycin 2019-10 No Notes: Memor ia + Sodium 0-04 TIME l Chloride 23:00: CRITICAL [place] nn 0.9% IV 100 00 MEDICATION mL (Same As: Vancocin) For adult patients only: Round to nearest 250 mg per Medical Staff approval Potassium 2019-10 No Notes: Memori a Chloride 0-04 (Same as: l 15:16: K-Dur 20) [place] 00 "Do Not Crush" Give with food and full glass of water For patients unable to swallow tablet, dissolve in one half glass of water. Allow about 2 minutes for the tablets to disintegra te. Stir before giving to prepare slurry and administer . Please exclude Patient s with feeding tube less than 14 [place] (Dobhoff, J-tube etc) and pediatric and patients. Potassium 2019-10 No Notes: Memori a Chloride 0-04 (Same as: l 15:16: K-Dur 20) [place] 00 "Do Not Crush" Give with food and full glass of water For patients unable to swallow tablet, dissolve in one half glass of water. Allow about 2 minutes for the tablets to disintegra te. Stir before giving to prepare slurry and administer . Please exclude Patient s with feeding tube less than 14 [place] (Dobhoff, J-tube etc) and pediatric and patients. Flagyl 2019-10 No Notes: Memoria 0-03 (Same as: l 23:00: Flagyl) [place] 00 Avoid alcohol. Flagyl 2019-10 No Notes: Memoria 0-03 (Same as: l 23:00: Flagyl) [place] 00 Avoid alcohol. Potassium 2019-10 No Notes: Memori [...] s with feeding tube less than 14 [place] (Dobhoff, J-tube etc) and pediatric and patients. Potassium 2019-10 No Notes: Memori a Chloride 0-03 (Same as: l 16:13: K-Dur 20) [place] 00 "Do Not Crush" Give with food and full glass of water For patients unable to swallow tablet, dissolve in one half glass of water. Allow about 2 minutes for the tablets to disintegra te. Stir before giving to prepare slurry and administer . Please exclude Patient s with feeding tube less than 14 [place] (Dobhoff, J-tube etc) and pediatric and patients. vancomycin 2019-10 No Notes: Memor ia + Sodium 0-02 TIME l Chloride 18:00: CRITICAL [place] nn 0.9% IV 100 00 MEDICATION mL (Same As: Vancocin) For adult patients only: Round to nearest 250 mg per Medical Staff approval vancomycin 2019-10 No Notes: Memor ia + Sodium 0-02 TIME l Chloride 18:00: CRITICAL [place] nn 0.9% IV 100 00 MEDICATION mL (Same As: Vancocin) For adult patients only: Round to nearest 250 mg per Medical Staff approval Zofran 2019-10 No Notes: Memoria 0-01 (Same as: l 19:33: Zofran) [place] 00 Zofran 2019-10 No Notes: Memoria 0-01 (Same as: l 19:33: Zofran) Dextrose 2019-10 No 12.5 gm, Memor ia 50% Syringe 0-01 25 mL, l (D50W) 19:27: Route: [place] 00 IVP, Drug Form: INJ, Dosing Weight [...] Lispro 0-01 (Same as: l 19:27: Humalog) [place] 00 Roll in palms of hands gently; Do not shake vigorously . WASTE: F/P - Black; E - Municipal Trash Bin Stable for 28 days at room temperatur e. Expires in days from ____Date Dextrose 2019-10 No 12.5 gm, Memor ia 50% Syringe 0-01 25 mL, l (D50W) 19:27: Route: Mar[place] IVP, Drug Form: INJ, Dosing Weight 105, [...] s with feeding tube less than 14 [place] (Dobhoff, J-tube etc) and pediatric and patients. [...] s with feeding tube less than 14 [place] (Dobhoff, J-tube etc) and pediatric and patients. vancomycin 2020-0 No Notes: Memor ia + Sodium 9-30 TIME l Chloride 21:00: CRITICAL [place] nn 0.9% IV 100 00 MEDICATION mL (Same As: Vancocin) For adult patients only: Round to nearest 250 mg per Medical Staff approval vancomycin 2020-0 No Notes: Memor ia + Sodium 9-30 TIME l Chloride 21:00: CRITICAL [place] nn 0.9% IV 100 00 MEDICATION mL (Same As: Vancocin) For adult patients only: Round to nearest 250 mg per Medical Staff approval Potassium 2019-0 No Notes: Memori a Chloride 9-30 (Same as: l 13:16: K-Dur 20) [place] 00 "Do Not Crush" Give with food and full glass of water For patients unable to swallow tablet, dissolve in one half glass of water. Allow about 2 minutes for the tablets to disintegra te. Stir before giving to prepare slurry and administer . Please exclude Patient s with feeding tube less than 14 [place] (Dobhoff, J-tube etc) and pediatric and patients. Potassium 2020-0 No Notes: Memori a Chloride 9-30 (Same as: l 13:16: K-Dur 20) [place] 00 "Do Not Crush" Give with food and full glass of water For patients unable to swallow tablet, dissolve in one half glass of water. Allow about 2 minutes for the tablets to disintegra te. Stir before giving to prepare slurry and administer . Please exclude Patient s with feeding tube less than 14 [place] (Dobhoff, J-tube etc) and pediatric and patients. Tylenol 2019-0 No Notes: Do Memor ia 07-07 not exceed l 15:39: 4 gm/day. [place] 00 (Same as: Tylenol) Tylenol 2019-0 No Notes: Do Memor ia 07-07 not exceed l 15:39: 4 gm/day. [place] 00 (Same as: Tylenol) Roxicodone 2019-0 No Notes: Memor ia 07-07 (Same as: l 15:38: Roxicodone ) Roxicodone 2019-0 No Notes: Memor ia 07-07 (Same as: l 15:38: Roxicodone ) Acetaminoph 2020-0 No 1 tab, Kojo lynn en 325 MG / 07-07 Route: PO, l Oxycodone 15:33: Drug Form: Jarad rmann Hydrochlori 00 TAB, de 5 MG Dosing Oral Tablet Weight [Percocet 105, kg, 5/325] Q6H, PRN Pain Score 7-10, Start date: 07/07/20 10:33:00 CDT, Duration: 30 day, Stop date: 08/06/20 10:32:00 CDT Acetaminoph 2020-0 No 1 tab, Kojo lynn en 325 MG / 07-07 Route: PO, l Oxycodone 15:33: Drug Form: He rmann Hydrochlori 00 TAB, de 5 MG Dosing Oral Tablet Weight [Percocet 105, kg, 5/325] Q6H, PRN Pain Score 7-10, Start date: 07/07/20 10:33:00 CDT, Duration: 30 day, Stop date: 08/06/20 10:32:00 CDT Hydralazine 2019- No Notes: Kojo lynn 07-07 (Same as: l 15:31: Apresoline ) May interfere w/enteral feedings. Take With Food Hydralazine 2019-0 No Notes: Kojo lynn - (Same as: l 15:31: Apresoline ) May interfere w/enteral feedings. Take With Food Miralax 2019-0 No Notes: Memoria - Dissolve l 14:00: in 8 oz of water or juice. (Same as: Miralax) cefepime 2019-0 No Notes: Memoria - (Same As: l 14:00: Maxipime) MEDICATION WASTE Product Size: 1000 mg Product Wasted: ___ mg Amlodipine 2019- No Notes: Memor ia 07-07 (Same as: l 14:00: Norvasc) enalapril 2019-0 No Notes: Memori a 07-07 (Same as: l 14:00: Vasotec) Miralax 2019-0 No Notes: Memoria -29 Dissolve l 14:00: in 8 oz of [...] Memori a Chloride 07-07 (Same as: l 13:: K-Dur 20) "Do Not Crush" Give with food and full glass of water For patients unable to swallow tablet, dissolve in one half glass of water. Allow about 2 minutes for the tablets to disintegra te. Stir before giving to prepare slurry and administer . Please exclude Patient s with feeding tube less than 14 [place] (Dobhoff, J-tube etc) and pediatric and patients. Potassium No Notes: Memori a Chloride 07-07 (Same as: l 13:: K-Dur 20) "Do Not Crush" Give with food and full glass of water For patients unable to swallow tablet, dissolve in one half glass of water. Allow about 2 minutes for the tablets to disintegra te. Stir before giving to prepare slurry and administer . Please exclude Patient s with feeding tube less than 14 [place] (Dobhoff, J-tube etc) and pediatric and patients. Epogen No Notes: 07-07 Same as: l 13:: Retacrit) epoetin franca-epbx 92585 unit/1 ml VL. WASTE: F/P - Red; E Red MEDICATION WASTE Product Size: 78582 unit Product Wasted: ___ unit Epogen 2019-0 No Notes: 07-07 Same as: l 13:08: Retacrit) epoetin franca-epbx 17842 unit/1 ml VL. WASTE: F/P - Red; E Red MEDICATION WASTE Product Size: 42427 unit Product Wasted: ___ unit potassium 0 No Notes: Memori a chloride 20 07-07 [...] s with feeding tube less than 14 [place] (Dobhoff, J-tube etc) and pediatric and patients. potassium 2019-0 No Notes: Memori a chloride 20 07-07 [...] s with feeding tube less than 14 [place] (Dobhoff, J-tube etc) and pediatric and patients. carvedilol 2020-0 No Notes: Memor ia 07-07 Give with l 02:00: food. [place] 00 (Same As: Coreg) tamsulosin 2019-0 No Notes: Memor ia 07-07 (Same As: l 02:00: Flomax) [place] 00 "Do Not Crush" carvedilol 2020-0 No Notes: Memor ia 07-07 Give with l 02:00: food. [place] 00 (Same As: Coreg) tamsulosin 2019-0 No Notes: Memor ia 07-07 (Same As: l 02:00: Flomax) [place] 00 "Do Not Crush" ferric 2020-0 Yes See Memoria citrate 07-06 Instructio l 1000 MG 21:49: ns, 210 PO Herm hannah Oral Tablet 00 TAKE 2 [Auryxia] TABS TID WITH MEALS AND 1 TAB TWIC A DAY WITH SNACKS, 0 Refill(s) ferric 2020-0 Yes See Memoria citrate 07-06 Instructio l 1000 MG 21:49: ns, 210 PO Herm hannah Oral Tablet 00 TAKE 2 [Auryxia] TABS TID WITH MEALS AND 1 TAB TWIC A DAY WITH SNACKS, 0 Refill(s) heparin 2020-0 No Notes: Memoria sodium, 07-06 porcine l porcine 21:00: heparin [place] 2500 UNT/ML 00 Injectable Solution Hydralazine 0 No Notes: Kojo lynn Hydrochlori 07-06 (Same as: l de 25 MG 21:00: Apresoline Her meeks Oral Tablet 00 ) May interfere w/enteral feedings Take With Food heparin 2019-0 No Notes: Memoria sodium, 07-06 porcine l porcine 21:00: heparin [place] 2500 UNT/ML 00 Injectable Solution Hydralazine 0 No Notes: Kojo lynn Hydrochlori 07-06 (Same as: l de 25 MG 21:00: Apresoline Her meeks Oral Tablet 00 ) May interfere w/enteral feedings Take With Food Amlodipine 0 No 1 cap, Memor ia 10 MG [...] Gel Herm hannah Capsule 00 Cap Hydroxyzine 0 No Notes: Kojo lynn Hydrochlori 07-06 (Same as: l de 25 MG 18:00: Atarax) Rafael n Oral Tablet 00 Avoid alcohol. Vancomycin 2019-0 No 2000 mg: Me moria 07-06 infuse l 18:00: over 2.5 [place] 00 hours For adult patients only: Round to nearest 250 mg per Medical Staff approval MEDICATION WASTE Product Size: 1000 mg Product Wasted: ___ mg Amlodipine 2020-0 No 1 cap, Memor ia 10 MG / 07-06 Route: PO, l Benazepril 18:00: Drug Form: H ermann hydrochlori 00 CAP, de 20 MG Dosing Oral Weight Capsule 105, kg, TID, Start date: 07/06/20 13:00:00 CDT, Duration: 30 day, Stop date: 08/05/20 9:00:00 CDT calcium 2020-0 No Notes: Memoria acetate [id number] Same as l MG Oral 18:00: Phoslo Gel Herm hannah Capsule Cap Hydroxyzine No Notes: Kojo lynn Hydrochlori 07-06 (Same as: l de 25 MG 18:00: Atarax) Rafael n Oral Tablet 00 Avoid alcohol. Vancomycin No 2001 mg: Me moria 07-06 infuse l 18:00: over 2.5 [place] 00 hours For adult patients only: Round to nearest 250 mg per Medical Staff approval MEDICATION WASTE Product Size: 1000 mg Product Wasted: ___ mg acetaminoph No Notes: Do M emoria en-codeine 07-06 not exceed l #3 17:42: 4gm/day of [place] acetaminop hen. (Same as: Tylenol with Codeine # 3) Diazepam No Notes: Memoria 07-06 (Same as: l 17:42: Valium) acetaminoph No Notes: Do M emoria en-codeine 07-06 not exceed l #3 17:42: 4gm/day of [place] acetaminop hen. (Same as: Tylenol with Codeine # 3) Diazepam No Notes: Memoria 07-06 (Same as: l 17:42: Valium) potassium No Notes: Memori a chloride 07-06 (Same as: l 16:00: Potassium [place] 00 Chloride) potassium No Notes: Memori a chloride 07-06 (Same as: l 16:00: Potassium [place] 00 Chloride) Hydromorpho No Notes: Kojo lynn ne 07-06 Same as: l 13:57: Dilaudid [place] Acetaminoph No Notes: Do M emoria en 325 MG / 07-06 not exceed l Hydrocodone 13:57: 4gm/day of [place] Bitartrate 00 acetaminop 10 MG Oral hen. Tablet (Same as: [[place] 10/325] 325/10) Hydromorpho No Notes: Kojo lynn ne 07-06 Same as: l 13:57: Dilaudid [place] Acetaminoph No Notes: Do M emoria en 325 MG / 07-06 not exceed l Hydrocodone 13:57: 4gm/day of [place] Bitartrate 00 acetaminop 10 MG Oral hen. Tablet (Same as: [[place] 10/325] 325/10) Potassium 2020-0 No 60 mEq, Memor ia Chloride 07-06 Route: PO, l 1.33 MEQ/ML 13:45: ONCE, [place] nn Oral 00 Dosing Solution Weight 105, kg, Start date: 07/06/20 8:45:00 CDT, Stop date: 07/06/20 8:45:00 CDT Potassium 2020-0 No 60 mEq, Memor ia Chloride 07-06 Route: PO, l 1.33 MEQ/ML 13:45: ONCE, [place] nn Oral 00 Dosing Solution Weight 105, kg, Start date: 07/06/20 8:45:00 CDT, Stop date: 07/06/20 8:45:00 CDT Hydromorpho 2020-0 No 1 mg, Memor ia ne 07-06 Route: l 12:40: IVP, ONCE, Dosing Weight 105, kg, Priority: STAT, Start date: 07/06/20 7:40:00 CDT, Stop date: 07/06/20 7:40:00 CDT Hydromorpho 2020-0 No 1 mg, Memor ia ne 07-06 Route: l 12:40: IVP, ONCE, Dosing Weight 105, kg, Priority: STAT, Start date: 07/06/20 7:40:00 CDT, Stop date: 07/06/20 7:40:00 CDT Morphine 2020-0 No 6 mg, Memoria 07-06 Route: l 12:39: IVP, ONCE, Dosing Weight 105, kg, Priority: STAT, Start date: 07/06/20 7:39:00 CDT, Stop date: 07/06/20 7:39:00 CDT Morphine 2020-0 No 6 mg, Memoria 07-06 Route: l 12:39: IVP, ONCE, Dosing Weight 105, kg, Priority: STAT, Start date: 07/06/20 7:39:00 CDT, Stop date: 07/06/20 7:39:00 CDT cefepime 2020-0 No Notes: Memoria 07-06 (Same As: l 11:05: Maxipime) [place] 00 MEDICATION WASTE Product Size: 1000 mg Product Wasted: ___ mg cefepime 2020-0 No Notes: Memoria 07-06 (Same As: l 11:05: Maxipime) [place] 00 MEDICATION WASTE Product Size: 1000 mg Product Wasted: ___ mg Vancomycin 2020-0 No 2000 mg: Me moria 07-06 infuse l 11:04: over 2.5 [place] 00 hours For adult patients only: Round to nearest 250 mg per Medical Staff approval MEDICATION WASTE Product Size: 1000 mg Product Wasted: ___ mg Vancomycin 2020-0 No 2000 mg: Me moria 07-06 infuse l 11:04: over 2.5 [place] 00 hours For adult patients only: Round to nearest 250 mg per Medical Staff approval MEDICATION WASTE Product Size: 1000 mg Product Wasted: ___ mg Morphine 2020-0 No Notes: Memoria 07-06 (Same l 10:32: as:MORPhin [place] 00 e Sulfate) Morphine 2020-0 No Notes: Memoria 07-06 (Same l 10:32: as:MORPhin [place] 00 e Sulfate) Acetaminoph 2020-0 No Notes: Do M emoria en 300 MG / 8-13 not exceed l Codeine 14:43: 4gm/day of Herm hannah Phosphate 00 acetaminop 30 MG Oral hen. Tablet (Same as: [Tylenol Tylenol with with Codeine #3] Codeine # 3) Acetaminoph 20200 No Notes: Do M emoria en 300 MG / 8-13 not exceed l Codeine 14:43: 4gm/day of Herm hannah Phosphate 00 acetaminop 30 MG Oral hen. Tablet (Same as: [Tylenol Tylenol with with Codeine #3] Codeine # 3) POLYETHYLEN 2020-0 Yes 17 gm, PO, Memoria E GLYCOL 8-13 Daily, l 3350 142 14:16: take daily Her meeks MG/ML Oral 00 until Solution normal [Miralax] bowel movement dissolve in water or juice, # 255 gm, 0 Refill(s) POLYETHYLEN 2020-0 Yes 17 gm, PO, Memoria E GLYCOL 8-13 Daily, l 3350 142 14:16: take daily Her meeks MG/ML Oral 00 until Solution normal [Miralax] bowel movement dissolve in water or juice, # 255 gm, 0 Refill(s) Miralax 2020-0 No Notes: Memoria 8-13 Dissolve l 13:33: in 8 oz of [place] 00 water or juice. (Same as: Miralax) Miralax 2020-0 No Notes: Memoria 8-13 Dissolve l 13:33: in 8 oz of [place] 00 water or juice. (Same as: Miralax) Morphine 2020-0 No 4 mg, Memoria 6-15 Route: l 13:48: IVP, ONCE, [place] 00 Dosing Weight 104, kg, Priority: STAT, Start date: 03/23/20 8:48:00 CDT, Stop date: 03/23/20 8:48:00 CDT Zofran 2020-0 No 4 mg, Memoria 6-15 Route: l 13:48: IVP, Drug form: INJ, ONCE, Dosing Weight 104, kg, Priority: STAT, Start date: 03/23/20 8:48:00 CDT, Stop date: 03/23/20 8:48:00 CDT Morphine 2020-0 No 4 mg, Memoria 6-15 Route: l 13:48: IVP, ONCE, Dosing Weight 104, kg, Priority: STAT, Start date: 03/23/20 8:48:00 CDT, Stop date: 03/23/20 8:48:00 CDT Zofran 2020-0 No 4 mg, Memoria 6-15 Route: l 13:48: IVP, Drug form: INJ, ONCE, Dosing Weight 104, kg, Priority: STAT, Start date: 03/23/20 8:48:00 CDT, Stop date: 03/23/20 8:48:00 CDT Acetaminoph 2020-0 No 1 tab, Kojo lynn en 325 MG / 6-15 Route: PO, l Hydrocodone 10:53: Drug Form: [place] Bitartrate 00 TAB, 5 MG Oral Dosing Tablet Weight [[place] 104, kg, 5/325] ONCE, STAT, Start date: 03/23/20 5:53:00 CDT, Stop date: 03/23/20 5:53:00 CDT Acetaminoph 2020-0 No 1 tab, Kojo lynn en 325 MG / 6-15 Route: PO, l Hydrocodone 10:53: Drug Form: [place] Bitartrate 00 TAB, 5 MG Oral Dosing Tablet Weight [Sae 104, kg, 5/325] ONCE, STAT, Start date: 03/23/20 5:53:00 CDT, Stop date: 03/23/20 5:53:00 CDT Acetaminoph 2020-0 No Notes: Do M emoria en 325 MG / 6-15 not exceed l Hydrocodone 09:02: 4gm/day of [place] Bitartrate 00 acetaminop 10 MG Oral hen. Tablet (Same as: [[place] 10/325] 325/10) Acetaminoph 2020-0 No Notes: Do M emoria en 325 MG / 6-15 not exceed l Hydrocodone 09:02: 4gm/day of [place] Bitartrate 00 acetaminop 10 MG Oral hen. Tablet (Same as: [[place] 10/325] 325/10) Sodium 2020-0 No 250 mL, Memoria Chloride 6-15 Rate: To l 0.9% 06:23: prime line [place] (titrate) 00 and flush 250 mL remaining blood products., Dosing Weight 104, kg, Route: IV, Total Volume: 250, Priority: Routine, Start Date: 03/23/20 1:23:00 CDT, Duration: 1 day, Stop date: 03/24/20 1:22:00 CDT, Replace Every: 24 hr, 0 Sodium 2020-0 No 250 mL, Memoria Chloride 6-15 Rate: To l 0.9% 06:23: prime line [place] (titrate) 00 and flush 250 mL remaining blood products., Dosing Weight 104, kg, Route: IV, Total Volume: 250, Priority: Routine, Start Date: 03/23/20 1:23:00 CDT, Duration: 1 day, Stop date: 03/24/20 1:22:00 CDT, Replace Every: 24 hr, 0 Acetaminoph 2020-0 Yes 1 tab, PO, Memoria en 300 MG / 4-27 Q6H, X 3 l Codeine 22:40: day, # 12 [place] nn Phosphate 00 tab, 0 30 MG Oral Refill(s) Tablet [Tylenol with Codeine #3] Acetaminoph 2020-0 Yes 1 tab, PO, Memoria en 300 MG / - Q6H, X 3 l Codeine 22:40: day, # 12 [place] nn Phosphate 00 tab, 0 30 MG Oral Refill(s) Tablet [Tylenol with Codeine #3] Dilaudid No Notes: Memoria 02-02 Same as: l 22:39: Dilaudid [place] 00 Dilaudid No Notes: Memoria 02-02 Same as: l 22:39: Dilaudid [place] 00 Hydralazine No 50 mg, 1 Me moria Hydrochlori -27 tab, l de 50 MG 22:20: Route: PO, Her meeks Oral Tablet 00 Drug form: TAB, ONCE, Dosing Weight 104.545, kg, Start date: 02/03/20 17:20:00 CDT, Stop date: 02/03/20 17:20:00 CDT Hydralazine 2019- No 50 mg, 1 Me moria Hydrochlori - tab, l de 50 MG 22:20: Route: PO, Her meeks Oral Tablet 00 Drug form: TAB, ONCE, Dosing Weight 104.545, kg, Start date: 02/03/20 17:20:00 CDT, Stop date: 02/03/20 17:20:00 CDT Zofran No Notes: Memoria 02-02 (Same as: l 20:19: Zofran) [place] 00 MEDICATION WASTE Product Size: 4 mg Product Wasted: ___ mg Zofran No Notes: Memoria 02-02 (Same as: l 20:19: Zofran) [place] 00 MEDICATION WASTE Product Size: 4 mg Product Wasted: ___ mg Morphine No Notes: Memoria 02-02 (Same l 20:18: as:MORPhin [place] 00 e Sulfate) Morphine No Notes: Memoria 02-02 (Same l 20:18: as:MORPhin [place] e Sulfate) Acetaminoph Yes 1-2 tab, Me moria en 325 MG / 1-28 PO, Q4-6H, l Hydrocodone 20:46: PRN Pain, H ermann Bitartrate 00 X 5 day, # 10 MG Oral 20 tab, 0 Tablet Refill(s), [[place] [facility]: ] [facility] [place] Acetaminoph 2019- Yes 1-2 tab, Me moria en 325 MG / 11-05 PO, Q4-6H, l Hydrocodone 20:46: PRN Pain, H ermann Bitartrate 00 X 5 day, # 10 MG Oral 20 tab, 0 Tablet Refill(s), [[place] [facility]: ] [facility] [place] vancomycin 2020-0 No 2000 mg: Me moria -27 infuse l 19:00: over 2.5 [place] 00 hours For adult patients only: Round to nearest 250 mg per Medical Staff approval MEDICATION WASTE Product Size: 1000 mg Product Wasted: ___ mg Amlodipine 2020-0 No 1 cap, Memor ia 10 MG / 11-04 Route: PO, l Benazepril 19:00: Drug Form: H ermann hydrochlori 00 CAP, de 20 MG Dosing Oral Weight Capsule 99.091, kg, TID, Start date: 11/04/19 13:00:00 MANAGER HOSPICE, Duration: 30 day, Stop date: 12/04/19 9:00:00 MANAGER HOSPICE amLODIPine 2019-0 No Notes: Memor ia - (Same as: l 19:00: Norvasc) [place] 00 lisinopril 2019-0 No Notes: Memor ia - (Same as: l 19:00: Prinivil, [place] Zestril) vancomycin 2019-0 No 2000 mg: Me moria 11-04 infuse l 19:00: over 2.5 [place] 00 hours For adult patients only: Round to nearest 250 mg per Medical Staff approval MEDICATION WASTE Product Size: 1000 mg Product Wasted: ___ mg Amlodipine 2020-0 No 1 cap, Memor ia 10 MG / 11-04 Route: PO, l Benazepril 19:00: Drug Form: H ermann hydrochlori 00 CAP, de 20 MG Dosing Oral Weight Capsule 99.091, kg, TID, Start date: 11/04/19 13:00:00 MANAGER HOSPICE, Duration: 30 day, Stop date: 12/04/19 9:00:00 MANAGER HOSPICE amLODIPine 2020-0 No Notes: Memor ia 11-04 (Same as: l 19:00: Norvasc) lisinopril 2019-0 No Notes: Memor ia 11-04 (Same as: l 19:00: Prinivil, Zestril) Amlodipine 2019-0 Yes 1 cap, PO, M emoria 10 MG / 1-27 TID, 0 l Benazepril 16:40: Refill(s) He rmann hydrochlori 00 de 20 MG Oral Capsule Amlodipine 2019-0 Yes 1 cap, PO, M emoria 10 MG / 1-27 TID, 0 l Benazepril 16:40: Refill(s) He rmann hydrochlori 00 de 20 MG Oral Capsule Potassium 2019-0 No Notes: Memori a Chloride 11-04 (Same [...] s with feeding tube less than 14 [place] (Dobhoff, J-tube etc) and pediatric and patients. Potassium 2019-0 No Notes: Memori a Chloride 11-04 (Same as: l 16:: K-Dur 20) "Do Not Crush" Give with food and full glass of water For patients unable to swallow tablet, dissolve in one half glass of water. Allow about 2 minutes for the tablets to disintegra te. Stir before giving to prepare slurry and administer . Please exclude Patient s with feeding tube less than 14 [place] (Dobhoff, J-tube etc) and pediatric and patients. epoetin 2019-0 No Notes: Memoria franca 11-04 (Same as: l 15:00: Procrit) epoetin franca 50544 unit/1 ml VL. For dialysis use only. (Procrit) WASTE: F/P - Red; E -Red MEDICATION WASTE Product Size: 28408 unit Product Wasted: ___ unit epoetin 2019-0 No Notes: Memoria franca 11-04 (Same as: l 15:00: Procrit) [place] 00 epoetin franca 77222 unit/1 ml VL. For dialysis use only. (Procrit) WASTE: F/P - Red; E -Red MEDICATION WASTE Product Size: 50107 unit Product Wasted: ___ unit Lisinopril 2019- No Notes: Memor ia 11-04 (Same as: l 14:47: Prinivil, [place] 00 Zestril) Lisinopril No Notes: Memor ia 11-04 (Same as: l 14:47: Prinivil, [place] 00 Zestril) Vancomycin No 2000 mg: Me moria - infuse l 14:40: over 2.5 [place] 00 hours For adult patients only: Round to nearest 250 mg per Medical Staff approval MEDICATION WASTE Product Size: 1000 mg Product Wasted: ___ mg Vancomycin No 2000 mg: Me moria 11-04 infuse l 14:40: over 2.5 [place] 00 hours For adult patients only: Round to nearest 250 mg per Medical Staff approval MEDICATION WASTE Product Size: 1000 mg Product Wasted: ___ mg Lasix No Notes: Memoria 1-26 (Same as: l 23:00: Lasix) [place] 00 May cause GI upset. Give with food or milk. Lasix No Notes: Memoria 1-26 (Same as: l 23:00: Lasix) [place] 00 May cause GI upset. Give with food or milk. vancomycin No Notes: Memor ia + Sodium 1-26 TIME l Chloride 21:00: CRITICAL [place] nn 0.9% IV 100 00 MEDICATION mL (Same As: Vancocin) For adult patients only: Round to nearest 250 mg per Medical Staff approval vancomycin No Notes: Memor ia + Sodium 1-26 TIME l Chloride 21:00: CRITICAL [place] nn 0.9% IV 100 00 MEDICATION mL (Same As: Vancocin) For adult patients only: Round to nearest 250 mg per Medical Staff approval Potassium 0 No Notes: Memori a Chloride 1-26 (Same as: l 15:32: K-Dur 20) [place] 00 "Do Not Crush" Give with food and full glass of water For patients unable to swallow tablet, dissolve in one half glass of water. Allow about 2 minutes for the tablets to disintegra te. Stir before giving to prepare slurry and administer . Please exclude Patient s with feeding tube less than 14 [place] (Dobhoff, J-tube etc) and pediatric and patients. Epogen No Notes: Memoria 11-03 (Same as: l 15:32: Procrit) [place] 00 epoetin fr[place] 93182 unit/1 ml VL. For dialysis use only. (Procrit) WASTE: F/P - Red; E -Red MEDICATION WASTE Product Size: 78516 unit Product Wasted: ___ unit Potassium No Notes: Memori a Chloride 11-03 (Same as: l 15:32: K-Dur 20) "Do Not Crush" Give with food and full glass of water For patients unable to swallow tablet, dissolve in one half glass of water. Allow about 2 minutes for the tablets to disintegra te. Stir before giving to prepare slurry and administer . Please exclude Patient s with feeding tube less than 14 [place] (Dobhoff, J-tube etc) and pediatric and patients. Epogen No Notes: Memoria 11-03 (Same as: l 15:32: Procrit) [place] 00 epoetin franca 46830 unit/1 ml VL. For dialysis use only. (Procrit) WASTE: F/P - Red; E -Red MEDICATION WASTE Product Size: 93739 unit Product Wasted: ___ unit Dilaudid No Notes: Memoria 1-25 Same as: l 18:03: Dilaudid Dilaudid No Notes: Memoria 1-25 Same as: l 18:03: Dilaudid heparin No 10,000 Memoria 1-25 unit, 10 l 02:00: mL, Route: DIALYSIS, Drug form: INJ, ONCALL, Dosing Weight 99.091, kg, Start date: 11/01/19 20:00:00 MANAGER HOSPICE, Duration: 1 doses or times, 0 heparin No 10,000 Memoria 1-25 unit, 10 l 02:00: mL, Route: DIALYSIS, Drug form: INJ, ONCALL, Dosing Weight 99.091, kg, Start date: 11/01/19 20:00:00 MANAGER HOSPICE, Duration: 1 doses or times, 0 vancomycin No Notes: Memor ia + Sodium 1-24 TIME l Chloride 20:00: CRITICAL [place] nn 0.9% IV 100 00 MEDICATION mL (Same As: Vancocin) For adult patients only: Round to nearest 250 mg per Medical Staff approval vancomycin No Notes: Memor ia + Sodium 1-24 TIME l Chloride 20:00: CRITICAL [place] nn 0.9% IV 100 00 MEDICATION mL (Same As: Vancocin) For adult patients only: Round to nearest 250 mg per Medical Staff approval potassium No Notes: Memori a chloride 1-24 (Same as: l 19:51: K-Dur 20) [place] 00 "Do Not Crush" Give with food and full glass of water For patients unable to swallow tablet, dissolve in one half glass of water. Allow about 2 minutes for the tablets to disintegra te. Stir before giving to prepare slurry and administer . Please exclude Patient s with feeding tube less than 14 [place] (Dobhoff, J-tube etc) and pediatric and patients. potassium No Notes: Memori a chloride 1-24 (Same as: l 19:51: K-Dur 20) [place] 00 "Do Not Crush" Give with food and full glass of water For patients unable to swallow tablet, dissolve in one half glass of water. Allow about 2 minutes for the tablets to disintegra te. Stir before giving to prepare slurry and administer . Please exclude Patient s with feeding tube less than 14 [place] (Dobhoff, J-tube etc) and pediatric and patients. Dilaudid No Notes: Memoria 1-24 Same as: l 18:47: Dilaudid [place] 00 Dilaudid No Notes: Memoria 1-24 Same as: l 18:47: Dilaudid [place] 00 Potassium No Notes: Memori a Chloride 1-24 (Same [...] s with feeding tube less than 14 [place] (Dobhoff, J-tube etc) and pediatric and patients. Potassium 2020-0 No Notes: Memori a Chloride 1-24 (Same as: l 16:00: K-Dur 20) [place] 00 "Do Not Crush" Give with food and full glass of water For patients unable to swallow tablet, dissolve in one half glass of water. Allow about 2 minutes for the tablets to disintegra te. Stir before giving to prepare slurry and administer . Please exclude Patient s with feeding tube less than 14 [place] (Dobhoff, J-tube etc) and pediatric and patients. heparin 2020-0 No 10,000 Memoria 1-24 unit, 10 l 01:00: mL, Route: [place] 00 DIALYSIS, Drug form: INJ, ONCALL, Dosing Weight 99.091, kg, Start date: 10/31/19 19:00:00 MANAGER HOSPICE, Duration: 1 doses or times, 0 heparin 2020-0 No 10,000 Memoria 1-24 unit, 10 l 01:00: mL, Route: [place] 00 DIALYSIS, Drug form: INJ, ONCALL, Dosing Weight 99.091, kg, Start date: 10/31/19 19:00:00 MANAGER HOSPICE, Duration: 1 doses or times, 0 Albuterol 2020-0 No Notes: Memori a 0.833 MG/ML 1-23 (Same as: 15:09: Duoneb) [place] Ipratropium 00 Colt 0.167 MG/ML Inhalant Solution [DuoNeb] Albuterol 2020-0 No Notes: Memori a 0.833 MG/ML 1-23 (Same as: :09: Duoneb) [place] Ipratropium 00 Colt 0.167 MG/ML Inhalant Solution [DuoNeb] Potassium 2020-0 No Notes: Memori a Chloride 1-23 (Same as: l 11:58: K-Dur 20) [place] 00 "Do Not Crush" Give with food and full glass of water For patients unable to swallow tablet, dissolve in one half glass of water. Allow about 2 minutes for the tablets to disintegra te. Stir before giving to prepare slurry and administer . Please exclude Patient s with feeding tube less than 14 [place] (Dobhoff, J-tube etc) and pediatric and patients. Potassium 2020-0 No Notes: Memori a Chloride 1-23 (Same as: l 11:58: K-Dur 20) [place] 00 "Do Not Crush" Give with food and full glass of water For patients unable to swallow tablet, dissolve in one half glass of water. Allow about 2 minutes for the tablets to disintegra te. Stir before giving to prepare slurry and administer . Please exclude Patient s with feeding tube less than 14 [place] (Dobhoff, J-tube etc) and pediatric and patients. heparin 2020-0 No 10,000 Memoria 1-23 unit, 10 l 05:00: mL, Route: [place] 00 DIALYSIS, Drug form: INJ, ONCALL, Dosing Weight 99.091, kg, Start date: 10/30/19 23:00:00 MANAGER HOSPICE, Duration: 1 doses or times, 0 heparin 2020-0 No 10,000 Memoria 1-23 unit, 10 l 05:00: mL, Route: [place] 00 DIALYSIS, Drug form: INJ, ONCALL, Dosing Weight 99.091, kg, Start date: 10/30/19 23:00:00 MANAGER HOSPICE, Duration: 1 doses or times, 0 Potassium 2020-0 No Notes: Memori a Chloride 1-23 (Same as: l 04:05: K-Dur 20) [place] 00 "Do Not Crush" Give with food and full glass of water For patients unable to swallow tablet, dissolve in one half glass of water. Allow about 2 minutes for the tablets to disintegra te. Stir before giving to prepare slurry and administer . Please exclude Patient s with feeding tube less than 14 [place] (Dobhoff, J-tube etc) and pediatric and patients. Potassium 2020-0 No Notes: Memori a Chloride 1-23 (Same as: l 04:05: K-Dur 20) [place] 00 "Do Not Crush" Give with food and full glass of water For patients unable to swallow tablet, dissolve in one half glass of water. Allow about 2 minutes for the tablets to disintegra te. Stir before giving to prepare slurry and administer . Please exclude Patient s with feeding tube less than 14 [place] (Dobhoff, J-tube etc) and pediatric and patients. Tylenol 2020-0 No Notes: Do Memor ia 1-22 not exceed l 19:42: 4 gm/day. [place] 00 (Same as: Tylenol) Tylenol 2020-0 No Notes: Do Memor ia 1-22 not exceed l 19:42: 4 gm/day. (Same as: Tylenol) Roxicodone 0 No Notes: Memor ia 10-30 (Same as: l 19:41: Roxicodone ) Roxicodone 0 No Notes: Memor ia 10-30 (Same as: l 19:41: Roxicodone ) Acetaminoph 2020-0 No 1 tab, Kojo lynn en 325 MG / 10-30 Route: PO, l Oxycodone 19:20: Drug Form: Jarad rmann Hydrochlori 00 TAB, de 5 MG Dosing Oral Tablet Weight [Percocet 99.091, 5/325] kg, Q4H, PRN Pain Score 4-6, Start date: 10/30/19 13:20:00 MANAGER HOSPICE, Duration: 30 day, Stop date: 11/29/19 13:19:00 MANAGER HOSPICE Acetaminoph 0 No 1 tab, Kojo lynn en 325 MG / 10-30 Route: PO, l Oxycodone 19:20: Drug Form: Jarad rider Hydrochlori 00 TAB, de 5 MG Dosing Oral Tablet Weight [Percocet 99.091, 5/325] kg, Q4H, PRN Pain Score 4-6, Start date: 10/30/19 13:20:00 MANAGER HOSPICE, Duration: 30 day, Stop date: 11/29/19 13:19:00 MANAGER HOSPICE vancomycin No 2000 mg: Me moria + Sodium 1-22 infuse l Chloride 18:00: over 2.5 [place] nn 0.9% IV 250 00 hours For mL adult patients only: Round to nearest 250 mg per Medical Staff approval MEDICATION WASTE Product Size: 1000 mg Product Wasted: ___ mg vancomycin 2019-0 No 2000 mg: Me moria + Sodium 1-22 infuse l Chloride 18:00: over 2.5 [place] nn 0.9% IV 250 00 hours For mL adult patients only: Round to nearest 250 mg per Medical Staff approval MEDICATION WASTE Product Size: 1000 mg Product Wasted: ___ mg cefepime 2019-0 No Notes: Memoria 10-30 (Same As: l 16:00: Maxipime) MEDICATION WASTE Product Size: 1000 mg Product Wasted: ___ mg Vancomycin 2020-0 No 2001 mg: Me moria 1-22 infuse l 16:00: over 2.5 [place] 00 hours For adult patients only: Round to nearest 250 mg per Medical Staff approval MEDICATION WASTE Product Size: 1000 mg Product Wasted: ___ mg cefepime 2020-0 No Notes: Memoria -22 (Same As: l 16:00: Maxipime) [place] 00 MEDICATION WASTE Product Size: 1000 mg Product Wasted: ___ mg Vancomycin 2020-0 No 2001 mg: Me moria -22 infuse l 16:00: over 2.5 [place] 00 hours For adult patients only: Round to nearest 250 mg per Medical Staff approval MEDICATION WASTE Product Size: 1000 mg Product Wasted: ___ mg NIFEdipine 2020-0 No Notes: Memor ia 90 mg oral -22 (Same as: l tablet, 15:00: Adalat [place] extended 00 CC,Procard release ia XL) "Do Not Crush" "Avoid grapefruit and grapefruit juice" Fauzia-Conor 2020-0 No Fauzia-Conor Mem oria oral tablet -22 oral l 15:00: tablet, 1 [place] 00 tab, Route: PO, Daily, 10/30/19 9:00:00 MANAGER HOSPICE, Duration: 30 day, Stop date: 11/28/19 9:00:00 MANAGER HOSPICE Nephro-Conor 2020-0 No Notes: Kojo lynn Rx - (Same as: l 15:00: Nephro-Vit [place] 00 e Rx and Diatx) Give with food. NIFEdipine 2020-0 No Notes: Memor ia 90 mg oral -22 (Same as: l tablet, 15:00: Adalat [place] extended 00 CC,Procard release ia XL) "Do Not Crush" "Avoid grapefruit and grapefruit juice" Fauzia-Conor 2020-0 No Fauzia-Conor Mem oria oral tablet -22 oral l 15:00: tablet, 1 [place] 00 tab, Route: PO, Daily, 10/30/19 9:00:00 MANAGER HOSPICE, Duration: 30 day, Stop date: 11/28/19 9:00:00 MANAGER HOSPICE Nephro-Conor 2020-0 No Notes: Kojo lynn Rx 10-30 (Same as: l 15:00: Nephro-Vit [place] 00 e Rx and Diatx) Give with food. Epoetin No Notes: Memoria Franca 10-30 (Same as: l 14:39: Procrit) [place] 00 epoetin franca 34170 unit/1 ml VL. For dialysis use only. (Procrit) WASTE: F/P - Red; E -Red MEDICATION WASTE Product Size: 79492 unit Product Wasted: ___ unit Epoetin 2019-0 No Notes: Memoria Franca 10-30 (Same as: l 14:39: Procrit) [place] epoetin franca 30088 unit/1 ml VL. For dialysis use only. (Procrit) WASTE: F/P - Red; E -Red MEDICATION WASTE Product Size: 74788 unit Product Wasted: ___ unit Potassium No Notes: Memori a Chloride 10-30 (Same as: l 14:38: K-Dur 20) [place] 00 "Do Not Crush" Give with food and full glass of water For patients unable to swallow tablet, dissolve in one half glass of water. Allow about 2 minutes for the tablets to disintegra te. Stir before giving to prepare slurry and administer . Please exclude Patient s with feeding tube less than 14 [place] (Dobhoff, J-tube etc) and pediatric and patients. Potassium No Notes: Memori a Chloride 10-30 (Same as: l 14:38: K-Dur 20) [place] "Do Not Crush" Give with food and full glass of water For patients unable to swallow tablet, dissolve in one half glass of water. Allow about 2 minutes for the tablets to disintegra te. Stir before giving to prepare slurry and administer . Please exclude Patient s with feeding tube less than 14 [place] (Dobhoff, J-tube etc) and pediatric and patients. carvedilol No Notes: Memor ia - Give with l 03:00: food. [place] 00 (Same As: Coreg) tamsulosin 0 No Notes: Memor ia - (Same As: l 03:00: Flomax) [place] 00 "Do Not Crush" carvedilol 2019-0 No Notes: Memor ia 1-22 Give with l 03:00: food. [place] 00 (Same As: Coreg) tamsulosin 0 No Notes: Memor ia - (Same As: l 03:00: Flomax) "Do Not Crush" Lactulose 0 No Notes: Memori a 667 MG/ML - (Same l Oral 00:36: as:Chronul [place] Solution 00 ac) Lactulose 0 No Notes: Memori a -22 Lactulose l 00:36: 300ml, [place] 00 Water for Irrigation 700ml - total volume = 1000ml Lactulose No Notes: Memori a 667 MG/ML - (Same l Oral 00:36: as:Chronul [place] Solution 00 ac) Lactulose 0 No Notes: Memori a - Lactulose l 00:36: 300ml, [place] 00 Water for Irrigation 700ml - total volume = 1000ml tizanidine 2019- No Notes: Memor ia - (Same As: l 22:22: Zanaflex) tizanidine 0 No Notes: Memor ia -21 (Same As: l 22:22: Zanaflex) Hydralazine 0 No Notes: Kojo lynn Hydrochlori 1-21 (Same as: l de 25 MG 22:00: Apresoline Her meeks Oral Tablet 00 ) May interfere w/enteral feedings Take With Food. Hydralazine No Notes: Kojo lynn Hydrochlori -21 (Same as: l de 25 MG 22:00: Apresoline Her meeks Oral Tablet 00 ) May interfere w/enteral feedings Take With Food. calcium 2019-0 Yes 2,001 mg = Kojo lynn acetate 667 1-21 3 cap, PO, l MG Oral 21:57: TID, 0 [place] Capsule 00 Refill(s) calcium 2019-0 Yes 2,001 mg = Kojo lynn acetate 667 1-21 3 cap, PO, l MG Oral 21:57: TID, 0 [place] Capsule 00 Refill(s) Diazepam 2019-0 No Notes: Memoria 1-21 (Same as: l 21:25: Valium) [place] Diazepam 2019-0 No Notes: Memoria 1-21 (Same as: l 21:25: Valium) Hydralazine 2019- No Notes: Kojo lynn 1-21 (Same as: l 18:50: Apresoline ) Push over 5 minutes Hydralazine No Notes: Kojo lynn 1-21 (Same as: l 18:50: Apresoline ) Push over 5 minutes acetaminoph No Notes: Do M emoria en-codeine - not exceed l #3 18:49: 4gm/day of acetaminop hen. (Same as: Tylenol with Codeine # 3) acetaminoph No Notes: Do M emoria en-codeine - not exceed l #3 18:49: 4gm/day of acetaminop hen. (Same as: Tylenol with Codeine # 3) Lasix No Notes: Memoria 10-29 (Same as: l 15:00: Lasix) MEDICATION WASTE Product Size: 40 mg Product Wasted: ___ mg Docusate 2019-0 No Notes: Memoria - (Same as: l 15:00: Colace) (Do Not Crush) Lasix No Notes: Memoria 10-29 (Same as: l 15:00: Lasix) MEDICATION WASTE Product Size: 40 mg Product Wasted: ___ mg Docusate 0 No Notes: Memoria 10-29 (Same as: [...] s with feeding tube less than 14 [place] (Dobhoff, J-tube etc) and pediatric and patients. Magnesium No Notes: Memori a Sulfate 10-29 WASTE: F/P l 14:55: - Sink; E [place] 00 - Municipal Trash Bin Potassium 2020-0 No Notes: Memori a Chloride 10-29 (Same [...] s with feeding tube less than 14 [place] (Dobhoff, J-tube etc) and pediatric and patients. Magnesium 2020-0 No Notes: Memori a Sulfate 10-29 WASTE: F/P l 14:55: - Sink; E - Municipal Trash Bin Diazepam 2020-0 Yes 10 mg, PO, Mem oria 10-29 PRN as l 08:31: needed for anxiety, 0 Refill(s) Diazepam 2020-0 Yes 10 mg, PO, Mem oria 10-29 PRN as l 08:31: needed for anxiety, 0 Refill(s) zolpidem 10 2020-0 Yes 10 mg = 1 M emoria mg oral -21 tab, PO, l tablet 08:27: Bedtime, [place] 00 PRN as needed for insomnia, 0 Refill(s) zolpidem 10 2020-0 Yes 10 mg = 1 M emoria mg oral -21 tab, PO, l tablet 08:27: Bedtime, [place] 00 PRN as needed for insomnia, 0 Refill(s) Lasix 2020-0 No Notes: Memoria 10-29 (Same as: l 06:55: Lasix) 00 MEDICATION WASTE Product Size: 40 mg Product Wasted: ___ mg Lasix 2020-0 No Notes: Memoria 10-29 (Same as: l 06:55: Lasix) 00 MEDICATION WASTE Product Size: 40 mg Product Wasted: ___ mg Dextrose 2020-0 No 12.5 gm, Memor ia 50% Syringe 10-29 25 mL, l (D50W) 06:50: Route: [place] 00 IVP, Drug Form: INJ, Dosing Weight 90.909, kg, PRN, PRN Blood Glucose Results, Start date: 10/29/19 0:50:00 MANAGER HOSPICE, Duration: 30 day, Stop date: 11/28/19 0:49:00 MANAGER HOSPICE, 0 Glucagon 2019-0 No 1 mg, Memoria 10-29 Route: IM, l 06:50: Drug form: [place] 00 PDR/INJ, PRN, Dosing Weight 90.909, kg, PRN Blood Glucose Results, Start date: 10/29/19 0:50:00 MANAGER HOSPICE, Duration: 30 day, Stop date: 11/28/19 0:49:00 MANAGER HOSPICE, 0 Ondansetron 2019-0 No Notes: Kojo lynn 10-29 (Same as: l 06:50: Zofran) MEDICATION WASTE Product Size: 4 mg Product Wasted: ___ mg Melatonin 2019-0 No Notes: Memori a 10-29 (Same as: l 06:50: Melatonin) Acetaminoph 0 No Notes: Do M emoria en 10-29 not exceed l 06:50: 4 gm/day. (Same as: Tylenol) Dextrose 2019- No 12.5 gm, Memor ia 50% Syringe 10-29 25 mL, l (D50W) 06:50: Route: [place] 00 IVP, Drug Form: INJ, Dosing Weight 90.909, kg, PRN, PRN Blood Glucose Results, Start date: 10/29/19 0:50:00 MANAGER HOSPICE, Duration: 30 day, Stop date: 11/28/19 0:49:00 MANAGER HOSPICE, 0 Glucagon 2019-0 No 1 mg, Memoria 10-29 Route: IM, l 06:50: Drug form: [place] PDR/INJ, PRN, Dosing Weight 90.909, kg, PRN Blood Glucose Results, Start date: 10/29/19 0:50:00 MANAGER HOSPICE, Duration: 30 day, Stop date: 11/28/19 0:49:00 MANAGER HOSPICE, 0 Ondansetron 2019-0 No Notes: Kojo lynn 10-29 (Same as: l 06:50: Zofran) MEDICATION WASTE Product Size: 4 mg Product Wasted: ___ mg Melatonin 2019-0 No Notes: Memori a 10-29 (Same as: l 06:50: Melatonin) Acetaminoph No Notes: Do M emoria en 10-29 not exceed l 06:50: 4 gm/day. [place] (Same as: Tylenol) Albuterol No Notes: SEE Me moria 0.83 MG/ML 10-29 RT l Inhalant 05:31: DOCUMENTAT Her meeks Solution 00 ION (Same as: Proventil) Albuterol No Notes: SEE Me moria 0.83 MG/ML 10-29 RT l Inhalant 05:31: DOCUMENTAT Her meeks Solution 00 ION (Same as: Proventil) Albuterol No Notes: Memori a 0.833 MG/ML 10-29 (Same as: l / 03:22: Duoneb) [place] Ipratropium 00 Colt 0.167 MG/ML Inhalant Solution [DuoNeb] Albuterol No Notes: SEE Me moria 0.83 MG/ML 10-29 RT l Inhalant 03:22: DOCUMENTAT Her meeks Solution 00 ION (Same as: Proventil) Albuterol No Notes: Memori a 0.833 MG/ML 10-29 (Same as: l / 03:22: Duoneb) [place] Ipratropium 00 Colt 0.167 MG/ML Inhalant Solution [DuoNeb] Albuterol No Notes: SEE Me moria 0.83 MG/ML 10-29 RT l Inhalant 03:22: DOCUMENTAT Her meeks Solution 00 ION (Same as: Proventil) carvedilol 2018-10 Yes 12.5 mg = Me moria 12.5 mg -12 1 tab, PO, l oral tablet 17:56: Q12H, # 60 [place] 00 tab, 0 Refill(s), Pharmacy: [facility] Furosemide 2018-10 Yes 80 mg = 2 Me moria 40 MG Oral 1-12 tab, PO, l Tablet 17:56: TID, # 180 [place] nn 00 tab, 0 Refill(s), Pharmacy: [facility] Hydralazine 2018-10 Yes 50 mg = 2 M emoria Hydrochlori 1-12 tab, PO, l de 25 MG 17:56: Q8H, # 180 [facility] meeks Oral Tablet 00 tab, 0 Refill(s), Pharmacy: [facility] lisinopril 2018-10 Yes 40 mg = 1 Me moria 40 mg oral 1-12 tab, PO, l tablet 17:56: Daily, # [place] 00 30 tab, 0 Refill(s), Pharmacy: [facility] NIFEdipine 2018-10 Yes 90 mg = 1 Me moria 90 mg oral 1-12 tab, PO, l tablet, 17:56: Daily, # Rafael n extended 00 30 tab, 0 release Refill(s), Pharmacy: [facility] carvedilol 2018-10 Yes 12.5 mg = Me moria 12.5 mg 1-12 1 tab, PO, l oral tablet 17:56: Q12H, # 60 [place] 00 tab, 0 Refill(s), Pharmacy: [facility] Furosemide 2018-10 Yes 80 mg = 2 Me moria 40 MG Oral 1-12 tab, PO, l Tablet 17:56: TID, # 180 [place] nn 00 tab, 0 Refill(s), Pharmacy: [facility] Hydralazine 2018-10 Yes 50 mg = 2 M emoria Hydrochlori 1-12 tab, PO, l de 25 MG 17:56: Q8H, # 180 Her meeks Oral Tablet 00 tab, 0 Refill(s), Pharmacy: [facility] lisinopril 2018-10 Yes 40 mg = 1 Me moria 40 mg oral 1-12 tab, PO, l tablet 17:56: Daily, # [place] 00 30 tab, 0 Refill(s), Pharmacy: [facility] NIFEdipine 2018-10 Yes 90 mg = 1 Me moria 90 mg oral 1-12 tab, PO, l tablet, 17:56: Daily, # Rafael n extended 00 30 tab, 0 release Refill(s), Pharmacy: [facility] carvedilol 2018-10 No Notes: Memor ia 1-12 Give with l 03:00: food. [place] 00 (Same As: Coreg) carvedilol 2018-10 No Notes: Memor ia 1-12 Give with l 03:00: food. [place] 00 (Same As: Coreg) NIFEdipine 2018-10 No 90 mg, Memor ia 60 mg oral 11 Route: PO, l tablet, 15:00: Drug form: Herm hannah extended 00 ERTAB, release Daily, Dosing Weight 96.364, kg, Start date: 08/19/19 9:00:00 MANAGER HOSPICE, Duration: 30 day, Stop date: 09/17/19 9:00:00 MANAGER HOSPICE, 0 lisinopril 2018-10 No Notes: Memor ia 1-11 (Same as: l 15:00: Prinivil, [place] Zestril) NIFEdipine 2018-10 No 90 mg, Memor ia 60 mg oral 10-19 Route: PO, l tablet, 15:00: Drug form: Herm hannah extended 00 ERTAB, release Daily, Dosing Weight 96.364, kg, Start date: 08/19/19 9:00:00 MANAGER HOSPICE, Duration: 30 day, Stop date: 09/17/19 9:00:00 MANAGER HOSPICE, 0 lisinopril 2018-10 No Notes: Memor ia 1-11 (Same as: l 15:00: Prinivil, [place] 00 Zestril) carvedilol 2018-10 No Notes: Memor ia 1-11 Give with l 03:00: food. (Same As: Coreg) carvedilol 2018-10 No Notes: Memor ia 1-11 Give with l 03:00: food. (Same As: Coreg) Clonidine 2018-10 No Notes: Memori a 1-11 (Same As: l 00:45: Catapres) Clonidine 2018-10 No Notes: Memori a 1-11 (Same As: l 00:45: Catapres) Clonidine 2018-10 No Notes: Memori a Hydrochlori 1-11 (Same As: l de 0.1 MG 00:44: Catapres) Her meeks Oral Tablet 00 Clonidine 2018-10 No Notes: Memori a Hydrochlori 1-11 (Same As: l de 0.1 MG 00:44: Catapres) Her meeks Oral Tablet 00 Hydralazine 2018-10 No Notes: Kojo lynn 1-10 (Same as: l 22:00: Apresoline ) May interfere w/enteral feedings Take With Food. Hydralazine 2018-10 No Notes: Kojo lynn 1-10 (Same as: l 22:00: Apresoline ) May interfere w/enteral feedings Take With Food. Lisinopril 2018-10 No Notes: Memor ia 1-10 (Same as: l 20:11: Prinivil, [place] 00 Zestril) Lisinopril 2018-10 No Notes: Memor ia 1-10 (Same as: l 20:11: Prinivil, [place] 00 Zestril) NIFEdipine 2018-10 No Notes: Memor ia 60 mg oral 1-10 (Same as: l tablet, 20:09: Adalat CC, Herm hannah extended 00 Procardia release XL) Give on empty stomach. Take 1 hour before or 2 hours after meal; "Avoid grapefruit and grapefruit juice". Do not crush NIFEdipine 2018-10 No Notes: Memor ia 60 mg oral 1-10 (Same as: l tablet, 20:09: Adalat CC, Herm hannah extended 00 Procardia release XL) Give on empty stomach. Take 1 hour before or 2 hours after meal; "Avoid grapefruit and grapefruit juice". Do not crush heparin 2018-10 No 10,000 Memoria 1-10 unit/mL, l 15:29: Route: [place] 00 DIALYSIS, Drug form: INJ, ONCALL, Dosing Weight 96.364, kg, Priority: NOW, Start date: 08/18/19 9:29:00 MANAGER HOSPICE, Duration: 1 doses or times, 0 heparin 2018-10 No 10,000 Memoria 1-10 unit/mL, l 15:29: Route: [place] 00 DIALYSIS, Drug form: INJ, ONCALL, Dosing Weight 96.364, kg, Priority: NOW, Start date: 08/18/19 9:29:00 MANAGER HOSPICE, Duration: 1 doses or times, 0 heparin 2018-10 No 10,000 Memoria 1-09 unit, 10 l 19:00: mL, Route: [place] 00 DIALYSIS, Drug form: INJ, ONCALL, Dosing Weight 96.364, kg, Start date: 08/17/19 13:00:00 MANAGER HOSPICE, Duration: 1 doses or times, 0 heparin 2018-10 No 10,000 Memoria 1-09 unit, 10 l 19:00: mL, Route: [place] 00 DIALYSIS, Drug form: INJ, ONCALL, Dosing Weight 96.364, kg, Start date: 08/17/19 13:00:00 MANAGER HOSPICE, Duration: 1 doses or times, 0 Sodium 2018-10 No 1,000 mL, Memori a Chloride 1-09 1,000 l 0.9% 18:06: ml/hr, [place] (Bolus) IV 00 Infuse Over: 1 hr, Route: IV, 1,000, Drug form: INJ, PRN, Priority: STAT, Dosing Weight 96.364 kg, Start date: 08/17/19 12:06:00 MANAGER HOSPICE, Duration: 30 day, Stop date: 09/16/19 12:05:00 MANAGER HOSPICE, PRN Dialysis, 0 Sodium 2018-10 No 1,000 mL, Memori a Chloride -09 1,000 l 0.9% 18:06: ml/hr, [place] (Bolus) IV 00 Infuse Over: 1 hr, Route: IV, 1,000, Drug form: INJ, PRN, Priority: STAT, Dosing Weight 96.364 kg, Start date: 08/17/19 12:06:00 MANAGER HOSPICE, Duration: 30 day, Stop date: 09/16/19 12:05:00 MANAGER HOSPICE, PRN Dialysis, 0 Potassium 2018-10 No Notes: Memori a Chloride - (Same as: l 15:18: K-Dur 20) [place] "Do Not Crush" Give with food and full glass of water For patients unable to swallow tablet, dissolve in one half glass of water. Allow about 2 minutes for the tablets to disintegra te. Stir before giving to prepare slurry and administer . Please exclude Patient s with feeding tube less than 14 [place] (Dobhoff, J-tube etc) and pediatric and patients. Potassium 2018-10 No Notes: Memori a Chloride -08 (Same as: l 15:18: K-Dur 20) [place] 00 "Do Not Crush" Give with food and full glass of water For patients unable to swallow tablet, dissolve in one half glass of water. Allow about 2 minutes for the tablets to disintegra te. Stir before giving to prepare slurry and administer . Please exclude Patient s with feeding tube less than 14 [place] (Dobhoff, J-tube etc) and pediatric and patients. Seroquel 2018-10 No Notes: Memoria 1-08 (Same as: l 02:36: SEROquel) [place] Seroquel 2018-10 No Notes: Memoria 1-08 (Same as: l 02:36: SEROquel) [place] Ativan 2018-10 No Notes: Memoria 1-07 (Same as: l 21:45: Ativan) [place] 00 Ativan 2018-10 No Notes: Memoria 1-07 (Same as: l 21:45: Ativan) [place] 00 Ativan 2018-10 No Notes: Memoria 1- (Same as: l 19:03: Ativan) Ativan 2018-10 No Notes: Memoria 1-07 (Same as: l 19:03: Ativan) amLODIPine 2018-10 No Notes: Memor ia 1- (Same as: l 15:00: Norvasc) lisinopril 2018-10 No Notes: Memor ia 1- (Same as: l 15:00: Prinivil, [place] 00 Zestril) multivitami 2018-10 No Notes: Kojo lynn n 1-07 (Same l 15:00: as:One Tab [place] 00 Daily, Tab-A-Conor + Beta Carotene) Give with food. NIFEdipine 2018-10 No Notes: Memor ia 60 mg oral - (Same as: l tablet, 15:00: Adalat CC, Herm hannah extended 00 Procardia release XL) Give on empty stomach. Take 1 hour before or 2 hours after meal; "Avoid grapefruit and grapefruit juice". Do not crush amLODIPine 2018-10 No Notes: Memor ia 1- (Same as: l 15:00: Norvasc) lisinopril 2018-10 No Notes: Memor ia 1-07 (Same as: l 15:00: Prinivil, [place] 00 Zestril) multivitami 2018-10 No Notes: Kojo lynn n 1-07 (Same l 15:00: as:One Tab [place] 00 Daily, Tab-A-Conor + Beta Carotene) Give with food. NIFEdipine 2018-10 No Notes: Memor ia 60 mg oral 1-07 (Same as: l tablet, 15:00: Adalat CC, Herm hannah extended 00 Procardia release XL) Give on empty stomach. Take 1 hour before or 2 hours after meal; "Avoid grapefruit and grapefruit juice". Do not crush Haldol 2018-10 No Notes: Memoria 1-07 (Same as: l 10:28: Haldol) [place] 00 Haldol 2018-10 No Notes: Memoria 1-07 (Same as: l 10:28: Haldol) [place] Haldol 2018-10 No Notes: Memoria 1-07 (Same as: l 10:25: Haldol) [place] Haldol 2018-10 No Notes: Memoria 1-07 (Same as: l 10:25: Haldol) [place] heparin 2018-10 No Notes: Memoria 1-07 porcine l 06:00: heparin [place] heparin 2018-10 No Notes: Memoria 1-07 porcine l 06:00: heparin [place] tamsulosin 2018-10 No Notes: Memor ia 1-07 (Same As: l 03:00: Flomax) [place] "Do Not Crush" tamsulosin 2018-10 No Notes: Memor ia 1-07 (Same As: l 03:00: Flomax) [place] "Do Not Crush" Amlodipine 2018-10 No 1 cap, Memor ia 10 MG / 06 Route: PO, l Benazepril 23:00: Drug Form: H ermann hydrochlori 00 CAP, de 20 MG Dosing Oral Weight Capsule 100.17, kg, TID, Start date: 08/14/19 17:00:00 MANAGER HOSPICE, Duration: 30 day, Stop date: 09/13/19 13:00:00 MANAGER HOSPICE carvedilol 2018-10 No Notes: Memor ia 1-06 Give with l 23:00: food. [place] 00 (Same As: Coreg) Furosemide 2018-10 No Notes: Memor ia 1-06 (Same as: l 23:00: Lasix) [place] 00 May cause GI upset. Give with food or milk. Hydralazine 2018-10 No Notes: Kojo lynn 1-06 (Same as: l 23:00: Apresoline [place] 00 ) May interfere w/enteral feedings Take With Food Hydroxyzine 2018-10 No Notes: Kojo lynn Hydrochlori 1-06 (Same as: l de 25 MG 23:00: Atarax) Rafael n Oral Tablet 00 Avoid alcohol. Amlodipine 2018-10 No 1 cap, Memor ia 10 MG / 1-06 Route: PO, l Benazepril 23:00: Drug Form: H ermann hydrochlori 00 CAP, de 20 MG Dosing Oral Weight Capsule 100.17, kg, TID, Start date: 08/14/19 17:00:00 MANAGER HOSPICE, Duration: 30 day, Stop date: 09/13/19 13:00:00 MANAGER HOSPICE carvedilol 2018-10 No Notes: Memor ia 1-06 Give with l 23:00: food. [place] 00 (Same As: Coreg) Furosemide 2018-10 No Notes: Memor ia 1-06 (Same as: l 23:00: Lasix) [place] 00 May cause GI upset. Give with food or milk. Hydralazine 2018-10 No Notes: Kojo lynn 1-06 (Same as: l 23:00: Apresoline [place] 00 ) May interfere w/enteral feedings Take With Food Hydroxyzine 2018-10 No Notes: Kojo lynn Hydrochlori 1-06 (Same as: l de 25 MG 23:00: Atarax) Rafael n Oral Tablet 00 Avoid alcohol. NIFEdipine 2018-10 No Notes: Memor ia 30 mg oral 1-06 (Same as: l tablet, 22:45: Adalat CC, Herm hannah extended 00 Procardia release XL) Give on empty stomach. Take 1 hour before or 2 hours after meal; "Avoid grapefruit and grapefruit juice". Do not crush NIFEdipine 2018-10 No Notes: Memor ia 30 mg oral 1-06 (Same as: l tablet, 22:45: Adalat CC, Herm hannah extended 00 Procardia release XL) Give on empty stomach. Take 1 hour before or 2 hours after meal; "Avoid grapefruit and grapefruit juice". Do not crush Hydralazine 2018-10 No Notes: Kojo lynn 1-06 (Same as: l 21:58: Apresoline [place] 00 ) Push over 5 minutes Hydralazine 2018-10 No Notes: Kojo lynn 1-06 (Same as: l 21:58: Apresoline [place] 00 ) Push over 5 minutes acetaminoph 2018-10 No Notes: Do M emoria en-codeine 1-06 not exceed l #3 21:51: 4gm/day of [place] 00 acetaminop hen. (Same as: Tylenol with Codeine # 3) acetaminoph 2018-10 No Notes: Do M emoria en-codeine - not exceed l #3 21:51: 4gm/day of acetaminop hen. (Same as: Tylenol with Codeine # 3) Dextrose 2018-10 No 12.5 gm, Memor ia 50% Syringe - 25 mL, l 21:47: Route: [place] 00 IVP, Drug Form: INJ, Dosing Weight 100.17, kg, PRN, PRN Blood Glucose Results, Start date: 08/14/19 15:47:00 MANAGER HOSPICE, Duration: 30 day, Stop date: 09/13/19 15:46:00 MANAGER HOSPICE, 0 Glucagon 2018-10 No 1 mg, Memoria 10-14 Route: IM, l 21:47: Drug form: [place] 00 PDR/INJ, PRN, Dosing Weight 100.17, kg, PRN Blood Glucose Results, Start date: 08/14/19 15:47:00 MANAGER HOSPICE, Duration: 30 day, Stop date: 09/13/19 15:46:00 MANAGER HOSPICE, 0 Ondansetron 2018-10 No Notes: Kojo lynn 10-14 (Same as: l 21:47: Apoloniafran) MEDICATION WASTE Product Size: 4 mg Product Wasted: ___ mg Acetaminoph 2018-10 No Notes: Do Ambrose hartleyria en 10-14 not exceed l 21:47: 4 gm/day. [place] 00 (Same as: Tylenol) Dextrose 2018-10 No 12.5 gm, Memor ia 50% Syringe 10-14 25 mL, l 21:47: Route: IVP, Drug Form: INJ, Dosing Weight 100.17, kg, PRN, PRN Blood Glucose Results, Start date: 08/14/19 15:47:00 MANAGER HOSPICE, Duration: 30 day, Stop date: 09/13/19 15:46:00 MANAGER HOSPICE, 0 Glucagon 2018-10 No 1 mg, Memoria 10-14 Route: IM, l 21:47: Drug form: [place] 00 PDR/INJ, PRN, Dosing Weight 100.17, kg, PRN Blood Glucose Results, Start date: 08/14/19 15:47:00 MANAGER HOSPICE, Duration: 30 day, Stop date: 09/13/19 15:46:00 MANAGER HOSPICE, 0 Ondansetron 2018-10 No Notes: Kojo lynn 1-06 (Same as: l 21:47: Zofran) MEDICATION WASTE Product Size: 4 mg Product Wasted: ___ mg Acetaminoph 2018-10 No Notes: Do M emoria en 10-14 not exceed l 21:47: 4 gm/day. Marlo 00 (Same as: Tylenol) acetaminoph 2018-10 Yes 1 tab, PO, Memoria en-codeine 10-14 Q6H, PRN l #3 20:48: Pain Score 00 4-6, 0 Refill(s) Amlodipine 2018-10 No 1 cap, PO, M emoria 10 MG / 10-14 TID, 0 l Benazepril 20:48: Refill(s) He rmann hydrochlori 00 de 20 MG Oral Capsule carvedilol 2018-10 No 6.25 mg = Me moria 6.25 mg 10-14 1 tab, PO, l oral tablet 20:48: BID, # 180 [place] 00 tab, 0 Refill(s) Hydroxyzine 2018-10 Yes 25 mg = 1 M emoria Hydrochlori 10-14 tab, PO, l de 25 MG 20:48: TID, 0 Marlo Oral Tablet 00 Refill(s) furosemide 2018-10 No 80 mg = 1 Me moria 80 mg oral 10-14 tab, PO, l tablet 20:48: TID, 0 [place] 00 Refill(s) acetaminoph 2018-10 Yes 1 tab, PO, Memoria en-codeine 10-14 Q6H, PRN l #3 20:48: Pain Score 4-6, 0 Refill(s) Amlodipine 2018-10 No 1 cap, PO, M emoria 10 MG / 10-14 TID, 0 l Benazepril 20:48: Refill(s) He rmann hydrochlori 00 de 20 MG Oral Capsule carvedilol 2018-10 No 6.25 mg = Me moria 6.25 mg 10-14 1 tab, PO, l oral tablet 20:48: BID, # 180 [place] 00 tab, 0 Refill(s) Hydroxyzine 2018-10 Yes 25 mg = 1 M emoria Hydrochlori 06 tab, PO, l de 25 MG 20:48: TID, 0 Marlo Oral Tablet 00 Refill(s) furosemide 2018-10 No 80 mg = 1 Me moria 80 mg oral 1-06 tab, PO, l tablet 20:48: TID, 0 Marlo 00 Refill(s) doxycycline Yes 100 mg = 1 Memoria hyclate 100 7-01 cap, PO, l MG Oral 20:19: Q12H, X 5 [place] nn Capsule 00 day, # 10 cap, 0 Refill(s), Pharmacy: [facility] #[id number] lisinopril Yes 20 mg = 1 Me moria 20 mg oral 7-01 tab, PO, l tablet 20:19: Daily, # [place] 00 30 tab, 0 Refill(s), Pharmacy: [facility] #[id number] doxycycline Yes 100 mg = 1 Memoria hyclate 100 7-01 cap, PO, l MG Oral 20:19: Q12H, X 5 [place] nn Capsule 00 day, # 10 cap, 0 Refill(s), Pharmacy: [facility] #[id number] lisinopril Yes 20 mg = 1 Me moria 20 mg oral 7-01 tab, PO, l tablet 20:19: Daily, # [place] 00 30 tab, 0 Refill(s), Pharmacy: [facility] #[id number] Miralax No Notes: Memoria 7-01 Dissolve l 14:36: in 8 oz of [place] 00 water or juice. (Same as: Miralax) Miralax No Notes: Memoria 7-01 Dissolve l 14:36: in 8 oz of [place] 00 water or juice. (Same as: Miralax) tamsulosin No Notes: Memor ia 6-30 (Same As: l 02:00: Flomax) [place] 00 "Do Not Crush" atorvastati No Notes: Kojo lynn n 6-30 (Same as: l 02:00: Lipitor) tamsulosin No Notes: Memor ia 6-30 (Same As: l 02:00: Flomax) [place] 00 "Do Not Crush" atorvastati No Notes: Kojo lynn n 6-30 (Same as: l 02:00: Lipitor) [place] 00 Zithromax + 2019-0 No 500 mg, Mem oria Sodium 6-29 Route: l Chloride 22:00: IVPB, [place] 0.9% IV 250 00 [id number], mL Dosing Weight 102.273, kg, Start date: 04/06/19 17:00:00 CDT, Duration: 7 day, Stop date: 04/12/19 17:00:00 CDT, ABX Indication : Pneumonia, 0 Hydralazine No Notes: Kojo lynn 6-29 (Same as: l 22:00: Apresoline [place] 00 ) May interfere w/enteral feedings Take With Food Lasix No Notes: Memoria 6-29 (Same as: l 22:00: Lasix) [place] 00 May cause GI upset. Give with food or milk. Zithromax + No 500 mg, Mem oria Sodium 6-29 Route: l Chloride 22:00: IVPB, [place] 0.9% IV 250 00 [id number], mL Dosing Weight 102.273, kg, Start date: 04/06/19 17:00:00 CDT, Duration: 7 day, Stop date: 04/12/19 17:00:00 CDT, ABX Indication : Pneumonia, 0 Hydralazine No Notes: Kojo lynn 6-29 (Same as: l 22:00: Apresoline [place] 00 ) May interfere w/enteral feedings Take [...] of SWFI Shake immediatel y & vigorously cefTRIAXone 2018- No Notes: Kojo lynn + sterile 6-29 Give IV l water 10 mL 21:00: push Rafael n 00 slowly over 5 minutes Give within one hour of reconstitu tion Reconstitu te Ceftriaxon e 1 g vial: 10 mL of SWFI Shake immediatel y & vigorously Procardia No Notes: Memori a XL 30 mg 6-29 (Same as: l oral 19:00: Adalat CC, [place] tablet, 00 Procardia extended XL) Give release on empty stomach. Take 1 hour before or 2 hours after meal; "Avoid grapefruit and grapefruit juice". Do not crush Procardia No Notes: Memori a XL 30 mg 6-29 (Same as: l oral 19:00: Adalat CC, [place] tablet, 00 Procardia extended XL) Give release on empty stomach. Take 1 hour before or 2 hours after meal; "Avoid grapefruit and grapefruit juice". Do not crush Alprazolam No Notes: Memor ia 2 MG Oral 6-29 With food l Tablet 18:22: or milk [place] [Xanax] 00 (Same as: Xanax) Alprazolam No Notes: Memor ia 2 MG Oral 6-29 With food l Tablet 18:22: or milk [place] [Xanax] 00 (Same as: Xanax) Hydralazine No Notes: Kojo lynn 6-29 (Same as: l 18:21: Apresoline [place] ) Push over 5 minutes Hydralazine No Notes: Kojo lynn 6-29 (Same as: l 18:21: Apresoline [place] 00 ) Push over 5 minutes benazepril No 20 mg, Memor ia 6-29 Route: PO, l 14:00: Drug form: [place] 00 TAB, Daily, Dosing Weight 100.17, kg, Start date: 04/06/19 9:00:00 CDT, Duration: 30 day, Stop date: 05/05/19 9:00:00 CDT Saline No Notes: Memoria Flush 0.9% 6-29 preservati l 14:00: ve free. heparin No Notes: Memoria 6-29 porcine l 14:00: heparin benazepril No 20 mg, Memor ia 6-29 Route: PO, l 14:00: Drug form: [place] 00 TAB, Daily, Dosing Weight 100.17, kg, Start date: 04/06/19 9:00:00 CDT, Duration: 30 day, Stop date: 05/05/19 9:00:00 CDT Saline No Notes: Memoria Flush 0.9% 6-29 preservati l 14:00: ve free. heparin No Notes: Memoria 6-29 porcine l 14:00: heparin lisinopril No Notes: Memor ia 6-29 (Same as: l 08:57: Prinivil, [place] Zestril) lisinopril No Notes: Memor ia 6-29 (Same as: l 08:57: Prinivil, [place] Zestril) Amlodipine No Notes: Memor ia 6-29 (Same as: l 08:56: Norvasc) Amlodipine No Notes: Memor ia 6-29 (Same as: l 08:56: Norvasc) carvedilol No Notes: Memor ia 6-29 Give with l 04:30: food. (Same As: Coreg) Hydralazine No Notes: Kojo lynn 6-29 (Same as: l 04:30: Apresoline ) May interfere w/enteral feedings Take With Food carvedilol No Notes: Memor ia 6-29 Give with l 04:30: food. 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 Zithromax 2019-0 No 500 mg, Memor ia 6-29 Route: l 03:00: IVPB, [place] 00 [id number], Dosing Weight 102.273, kg, Start date: 04/05/19 22:00:00 CDT, Duration: 7 day, Stop date: 04/11/19 22:00:00 CDT, ABX Indication : Pneumonia Ceftriaxone 2019-0 No 1 gm, Memor ia 6-29 Route: l 03:00: IVPB, [place] 00 [id number], Dosing Weight 102.273, kg, Start date: 04/05/19 22:00:00 CDT, Duration: 7 day, Stop date: 04/11/19 22:00:00 CDT, ABX Indication : Pneumonia Aspirin 325 2019-0 No Notes: (Do Memoria MG Enteric 6-29 Not Crush) l Coated 03:00: Do not [place] Tablet 00 crush or chew. Zithromax 2019-0 No 500 mg, Memor ia 6-29 Route: l 03:00: IVPB, [place] 00 [id number], Dosing Weight 102.273, kg, Start date: 04/05/19 22:00:00 CDT, Duration: 7 day, Stop date: 04/11/19 22:00:00 CDT, ABX Indication : Pneumonia Ceftriaxone 2019-0 No 1 gm, Memor ia 6-29 Route: l 03:00: IVPB, [place] 00 [id number], Dosing Weight 102.273, kg, Start date: 04/05/19 22:00:00 CDT, Duration: 7 day, Stop date: 04/11/19 22:00:00 CDT, ABX Indication : Pneumonia Glucagon 2019-0 No 1 mg, Memoria 6-29 Route: IM, l 02:03: Drug form: [place] 00 PDR/INJ, PRN, Dosing Weight 102.273, kg, PRN Blood Glucose Results, Start date: 04/05/19 21:03:00 CDT, Duration: 30 day, Stop date: 05/05/19 21:02:00 CDT, 0 Bisacodyl 2018- No Notes: Memori a 6-29 (Same As: l 02:03: Dulcolax, [place] 00 Bisco-Lax) Ondansetron No Notes: Kojo lynn - (Same as: l 02:03: Zofran) [place] 00 MEDICATION WASTE Product Size: 4 mg Product Wasted: ___ mg Melatonin No Notes: Memori a 6-29 (Same as: l 02:03: Melatonin) [place] 00 Acetaminoph No Notes: Do M emoria en 04-06 not exceed l 02:03: 4 gm/day. (Same as: Tylenol) Dextrose No 25 gm, 50 Kojo lynn 50% Syringe - mL, Route: l 02:03: IVP, Drug Form: INJ, Dosing Weight 102.273, kg, PRN, PRN Blood Glucose Results, Start date: 04/05/19 21:03:00 CDT, Duration: 30 day, Stop date: 05/05/19 21:02:00 CDT, 0 Glucagon No 1 mg, Memoria 04-06 Route: IM, l 02:03: Drug form: [place] 00 PDR/INJ, PRN, Dosing Weight 102.273, kg, PRN Blood Glucose Results, Start date: 04/05/19 21:03:00 CDT, Duration: 30 day, Stop date: 05/05/19 21:02:00 CDT, 0 Bisacodyl No Notes: Memori a 6-29 (Same As: l 02:03: Dulcolax, [place] 00 Bisco-Lax) Ondansetron No Notes: Kojo lynn -29 (Same as: l 02:03: Zofran) MEDICATION WASTE Product Size: 4 mg Product Wasted: ___ mg Melatonin No Notes: Memori a 6-29 (Same as: l 02:03: Melatonin) [place] 00 Acetaminoph No Notes: Do M emoria en 04-06 not exceed l 02:03: 4 gm/day. (Same as: Tylenol) Dextrose No 25 gm, 50 Kojo lynn 50% Syringe 6-29 mL, Route: l 02:03: IVP, Drug Form: INJ, Dosing Weight 102.273, kg, PRN, PRN Blood Glucose Results, Start date: 04/05/19 21:03:00 CDT, Duration: 30 day, Stop date: 05/05/19 21:02:00 CDT, 0 Saline No Notes: Memoria Flush 0.9% 6-29 preservati l 02:02: ve free. Acetaminoph No Notes: Do M emoria en 04-06 not exceed l 02:02: 4 gm/day. (Same as: Tylenol) Saline No Notes: Memoria Flush 0.9% 6-29 preservati l 02:02: ve free. Acetaminoph No Notes: Do M emoria en 04-06 not exceed l 02:02: 4 gm/day. (Same as: Tylenol) Hydromorpho No Notes: Kojo lynn ne 04-06 Same as: l 01:54: Dilaudid Tramadol No Notes: Not Mem oria 04-06 to exceed l 01:54: 400mg/day. (Same As: Ultram) Hydromorpho No Notes: Kojo lynn ne 04-06 Same as: l 01:54: Dilaudid Tramadol No Notes: Not Mem oria - to exceed l 01:54: 400mg/day. (Same As: Ultram) NIFEdipine 2017-10 Yes 60 mg = 1 Me moria 60 mg oral 0-16 tab, PO, l tablet, 17:27: Daily, # Rafael n extended 00 30 tab, 0 release Refill(s), Pharmacy: [facility] #[id number] NIFEdipine 2017-10 Yes 60 mg = 1 Me moria 60 mg oral 0-16 tab, PO, l tablet, 17:27: Daily, # Rafael n extended 00 30 tab, 0 release Refill(s), Pharmacy: [facility] #[id number] heparin 2017-10 No 10,000 Memoria 0-16 unit, 10 l 15:21: mL, Route: [place] 00 DIALYSIS, Drug form: INJ, ONCALL, Dosing Weight 102.273, kg, PRN Dialysis, Start date: 07/24/18 10:21:00 CDT, Duration: 1 doses or times, Stop date: Limited # of times heparin 2017-10 No 10,000 Memoria 0-16 unit, 10 l 15:21: mL, Route: [place] 00 DIALYSIS, Drug form: INJ, ONCALL, Dosing Weight 102.273, kg, PRN Dialysis, Start date: 07/24/18 10:21:00 CDT, Duration: 1 doses or times, Stop date: Limited # of times Dilaudid 2017-10 No Notes: Memoria 0-15 (Same as: l 19:17: Dilaudid) Dilaudid 2017-10 No Notes: Memoria 0-15 (Same as: l 19:17: Dilaudid) heparin 2017-10 No 10,000 Memoria 0-15 unit, 10 l 13:00: mL, Route: [place] 00 DIALYSIS, Drug form: INJ, ONCALL, Dosing Weight 102.273, kg, Start date: 07/23/18 8:00:00 CDT, Duration: 1 doses or times heparin 2017-10 No 10,000 Memoria 0-15 unit, 10 l 13:00: mL, Route: [place] 00 DIALYSIS, Drug form: [...] Stop date: 07/24/18 7:21:00 CDT, 2.23, m2 Sodium 2017-10 No 2,000 mL, Memori a Chloride 0-15 Rate: for l 0.9% IV 12:22: dialysis, [place] nn 2,000 mL 00 Route: IV, Dosing Weight 102.273 kg, Total Volume: 2,000, Start date: 07/23/18 7:22:00 CDT, Duration: 1 day, Stop date: 07/24/18 7:21:00 CDT, 2.23, m2 zolpidem 2017-10 No 10 mg, Memoria 0-15 Route: PO, l 02:00: Drug form: [place] 00 TAB, Bedtime, Dosing Weight 102.273, kg, Start date: 07/22/18 21:00:00 CDT, Duration: 30 day, Stop date: 08/20/18 21:00:00 [facility] tamsulosin 2017-10 No Notes: Memor ia 0-15 (Same As: l 02:00: Flomax) "Do Not Crush" zolpidem 2017-10 No 10 mg, Memoria 0-15 Route: PO, l 02:00: Drug form: [place] 00 TAB, Bedtime, Dosing Weight 102.273, kg, Start date: 07/22/18 21:00:00 CDT, Duration: 30 day, Stop date: 08/20/18 21:00:00 [facility] tamsulosin 2017-10 No Notes: Memor ia 0-15 (Same As: l 02:00: Flomax) "Do Not Crush" NIFEdipine 2017-10 No Notes: Memor ia 60 mg oral 0-14 (Same as: l tablet, 14:00: Adalat CC, Herm hannah extended 00 Procardia release XL) Give on empty stomach. Take 1 hour before or 2 hours after meal; "Avoid grapefruit and grapefruit juice". Do not crush multivitami 2017-10 No Notes: Kojo lynn n 0-14 (Same l 14:00: as:One Tab [place] 00 Daily, Tab-A-Conor + [...] 0-14 (Same as: l 14:00: Norvasc) [place] Docusate 2017-10 No Notes: Memoria 0-14 (Same as: l 14:00: Colace) [place] (Do Not Crush) NIFEdipine 2017-10 No Notes: Memor ia 60 mg oral 0-14 (Same as: l tablet, 14:00: Adalat CC, Herm hannah extended 00 Procardia release XL) Give on empty stomach. Take 1 hour before or 2 hours after meal; "Avoid grapefruit and grapefruit juice". Do not crush multivitami 2017-10 No Notes: Kojo lynn n 0-14 (Same l 14:00: as:One Tab [place] Daily, Tab-A-Conor + Beta Carotene) Give with [...] ia 0-14 Give with l 14:00: food. [place] 00 (Same As: Coreg) calcium 2017-10 No Notes: Memoria acetate 667 0-14 Same as l MG Oral 14:00: Phoslo Gel Herm hannah Capsule 00 Cap Amlodipine 2017-10 No Notes: Memor ia 0-14 (Same as: l 14:00: Norvasc) [place] Docusate 2017-10 No Notes: Memoria 0-14 (Same as: l 14:00: Colace) [place] (Do Not Crush) carvedilol 2017-10 Yes 37.5 mg = Me moria 12.5 mg 0-14 3 tab, PO, l oral tablet 11:45: BID, 0 Herm hannah 00 Refill(s) calcium 2017-10 Yes See Memoria acetate 667 0-14 Instructio l MG Oral 11:45: ns, 0 [place] Capsule 00 Refill(s) Hydralazine 2017-10 Yes 50 mg, PO, Memoria 0-14 TID, 0 l 11:45: Refill(s) [place] 00 Amlodipine 2017-10 Yes 1 cap, PO, M emoria 10 MG / 0-14 TID, 0 l Benazepril 11:45: Refill(s) He rmann hydrochlori 00 de 20 MG Oral Capsule carvedilol 2017-10 Yes 37.5 mg = Me [...] With food l Tablet 11:31: or milk [place] [Xanax] 00 (Same as: Xanax) Hydroxyzine 2017-10 No Notes: Kojo lynn Hydrochlori 0-14 (Same as: l de 25 MG 11:31: Atarax) Rafael n Oral Tablet 00 Avoid alcohol. Alprazolam 2017-10 No Notes: Memor ia 2 MG Oral 0-14 With food l Tablet 11:31: or milk [place] [Xanax] 00 (Same as: Xanax) Dilaudid 2017-10 No Notes: Memoria 0-14 Same as: l 11:27: Dilaudid [place] 00 Dilaudid 2017-10 No Notes: Memoria 0-14 Same [...] 2:16:00 CDT, Stop date: 07/22/18 2:16:00 CDT Dilaudid 2017-10 No 1 mg, Memoria 0-14 Route: l 07:16: IVP, ONCE, Dosing Weight 96.7, kg, Priority: STAT, Start date: 07/22/18 2:16:00 CDT, Stop date: 07/22/18 2:16:00 CDT heparin 2017-10 No 10,000 Memoria 0-14 unit, 10 l 06:00: mL, Route: [place] DIALYSIS, Drug form: INJ, ONCALL, Dosing Weight 96.7, kg, Start date: 07/22/18 1:00:00 CDT, Duration: 1 doses or times heparin 2017-10 No 10,000 Memoria 0-14 unit, [...] l IV 1,000 mL 05:43: dialysis He rmann 00 prime and rinseback only, Rate: 0 ml/hr, Infuse over: 0, Route: IV, Dosing Weight 96.7 kg, Total Volume: 1,000, Start date: 07/22/18 0:43:00 CDT, Duration: 30 day, Stop date: 08/21/18 0:42:00 [facility]NA[facility] HOSPICE, 2.16, m2 Mannitol 2017-10 No Notes: Memoria 0-14 (Same as: l 05:43: Osmitrol) [place] 00 Infuse through 5 micron or smaller filter WASTE: F/P - Sink; E - Municipal Trash Bin normal 2017-10 No 1,000 mL, Memori a saline 0.9% 0-14 Rate: for l IV 1,000 mL 05:43: dialysis He rmann 00 prime and rinseback only, Rate: 0 ml/hr, Infuse over: 0, Route: IV, Dosing Weight 96.7 kg, Total Volume: 1,000, Start date: 07/22/18 0:43:00 CDT, Duration: 30 day, Stop date: 08/21/18 0:42:00 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 [place] 00 (Same as: Tylenol) Morphine 2017-10 No Notes: Memoria 0-14 Preservati l 05:22: ve free. [place] 00 (Same as: Morphine Sulfate-PF ) Ondansetron 2017-10 No Notes: Kojo lynn 0-14 (Same as: l 05:22: Zofran) [place] 00 MEDICATION WASTE Product Size: 4 mg Product Wasted: ___ mg Acetaminoph 2017-10 No Notes: Do M emoria en 0-14 not exceed l 05:22: 4 gm/day. [place] 00 (Same as: Tylenol) Morphine 2017-10 No Notes: Memoria 0-14 Preservati l 05:22: ve free. [place] 00 (Same as: Morphine Sulfate-PF ) Ondansetron 2017-10 No Notes: Kojo lynn 0-14 (Same as: l 05:22: Zofran) [place] 00 MEDICATION WASTE Product Size: 4 mg Product Wasted: ___ mg Dilaudid 2017-10 No Notes: Memoria 0-14 Same as: l 05:07: Dilaudid [place] 00 Dilaudid 2017-10 No Notes: Memoria 0-14 Same as: l 05:07: Dilaudid [place] 00 Zofran 2017-10 No Notes: Memoria 0-14 (Same as: l 04:47: Zofran) [place] 00 MEDICATION WASTE Product Size: 4 mg Product Wasted: ___ mg Zofran 2017-10 No Notes: Memoria 0-14 (Same as: l 04:47: Zofran) [place] 00 MEDICATION WASTE Product Size: 4 mg Product Wasted: ___ mg Dilaudid 2017-10 No Notes: Memoria 0-14 Same as: l 04:46: Dilaudid [place] Dilaudid 2017-10 No Notes: Memoria 0-14 Same as: l 04:46: Dilaudid [place] Hydromorpho 2017-10 No Notes: Kojo lynn ne 0-14 Same as: l 04:13: Dilaudid [place] Hydromorpho 2017-10 No Notes: Kojo lynn ne 0-14 Same as: l 04:13: Dilaudid [place] 00 Saline 2017-10 No Notes: Memoria Flush 0.9% 0-14 (Same as: l 02:24: BD [place] 00 Posiflush) Saline 2017-10 No Notes: Memoria Flush 0.9% 0-14 (Same as: l 02:24: BD [place] 00 Posiflush) lactulose 2017-10 No = 1 Pack, Mem oria 10 g oral 0-13 PO, Daily, l powder 02:13: X 2 day, # [place] 00 30 ea, 0 Refill(s) lactulose 2017-10 No = 1 Pack, Mem oria 10 g oral 0-13 PO, Daily, l powder 02:13: X 2 day, # [place] 00 30 ea, 0 Refill(s) Sodium 2017-10 No 15 gm, PO, Memor ia polystyrene 0-13 Daily, X 2 l sulfonate 01:54: day, # 30 Her meeks 250 MG/ML 00 gm, 0 Oral Refill(s) Suspension [Kayexalate ] Sodium 2017-10 No 15 gm, PO, Memor ia polystyrene 0-13 Daily, X 2 l sulfonate 01:54: day, # 30 Her meeks 250 MG/ML 00 gm, 0 Oral Refill(s) Suspension [Kayexalate ] Kayexalate 2017-10 No Notes: Memor ia 0-12 (sodium l 23:39: polystyren [place] 00 e sulfonate 15 gm/60 ml CANDACE) Shake well before use. (Same as: Kayexalate , SPS) Kayexalate 2017-10 No Notes: Memor ia 0-12 (sodium l 23:39: polystyren [place] 00 e sulfonate 15 gm/60 ml CANDACE) [...] PO, l tablet 16:49: Bedtime, 0 [place] 00 Refill(s) Lorazepam 1 Yes 1 mg = 1 Me moria MG Oral 8-14 tab, PO, l Tablet 16:49: PRN, 0 [place] 00 Refill(s) amLODIPine Yes 10 mg = 1 Me moria 10 mg oral 8-14 tab, PO, l tablet 16:49: Daily, 0 [place] 00 Refill(s) Ascorbic 2018 Yes 1 tab, PO, Mem oria Acid [...] tab, PO, l Tablet 16:49: PRN, 0 [place] 00 Refill(s) amLODIPine Yes 10 mg = 1 Me moria 10 mg oral 8-14 tab, PO, l tablet 16:49: Daily, 0 [place] 00 Refill(s) tamsulosin No Notes: Memor ia 04-16 (Same As: l 02:00: Flomax) [place] 00 "Do Not Crush" tamsulosin No Notes: Memor ia 04-16 (Same As: l 02:00: Flomax) [place] 00 "Do Not Crush" Hydralazine Yes 50 mg = 1 M emoria Hydrochlori 7-08 tab, PO, l de 50 MG 20:33: TID, # 90 Herm hannah Oral Tablet 00 tab, 0 Refill(s) NIFEdipine Yes 60 mg = 1 Me moria 60 mg oral 7-08 tab, PO, l tablet, 20:33: Daily, # Rafael n extended 00 30 tab, 0 release Refill(s) carvedilol Yes 3.125 mg = M emoria 3.125 mg 7-08 1 tab, PO, l oral tablet 20:33: Q12H, # 60 [place] 00 tab, 0 Refill(s) Hydralazine Yes 50 mg = 1 M emoria Hydrochlori 7-08 tab, PO, l de 50 MG 20:33: TID, # 90 Herm hannah Oral Tablet 00 tab, 0 Refill(s) NIFEdipine Yes 60 mg = 1 Me moria 60 mg oral 7-08 tab, PO, l tablet, 20:33: Daily, # Rafael n extended 00 30 tab, 0 release Refill(s) carvedilol Yes 3.125 mg = M emoria 3.125 mg 04-15 1 tab, PO, l oral tablet 20:33: Q12H, # 60 [place] 00 tab, 0 Refill(s) Potassium No Notes: Memori a Chloride 04-15 (Same as: l 20:22: K-Dur 20) [place] 00 "Do Not Crush" For patients unable to swallow tablet, dissolve in one half glass of water. Allow about 2 minutes for the tablets to disintegra te. Stir before giving to prepare slurry and administer . Please exclude Patient s with feeding tube less than 14 [place] (Dobhoff, J-tube etc) and pediatric and patients. With food and full glass of water Potassium No Notes: Memori a Chloride 04-15 (Same as: l 20:22: K-Dur 20) [place] 00 "Do Not Crush" For patients unable to swallow tablet, dissolve in one half glass of water. Allow about 2 minutes for the tablets to disintegra te. Stir before giving to prepare slurry and administer . Please exclude Patient s with feeding tube less than 14 [place] (Dobhoff, J-tube etc) and pediatric and patients. [...] Route: PO, l Oxycodone 14:00: Drug Form: He rmann Hydrochlori 00 TAB, de 5 MG Dosing Oral Tablet Weight [Percocet 74.091, 5/325] kg, BID, Start date: 04/15/18 9:00:00 CDT, Duration: 30 day, Stop date: 05/14/18 17:00:00 CDT carvedilol No Notes: Memor ia 04-15 Give with l 14:00: food. [place] 00 (Same As: Coreg) calcium No Notes: Memoria acetate 667 7-08 Same as l MG Oral 14:00: Phoslo Gel Herm hannah Capsule 00 Cap Amlodipine No Notes: Memor ia 7-08 (Same as: l 14:00: Norvasc) [place] 00 Hydralazine No Notes: Kojo lynn Hydrochlori 7-08 (Same as: l de 25 MG 14:00: Apresoline Her meeks Oral Tablet 00 ) May interfere w/enteral feedings Take With Food. Lasix No Notes: Memoria 7-08 (Same as: l 14:00: Lasix) [place] May cause GI upset. Give with food or milk. Acetaminoph No 1 tab, Kojo lynn en 325 MG / 04-15 Route: PO, l Oxycodone 14:00: Drug Form: Jarad rmhannah Hydrochlori 00 TAB, de 5 MG Dosing Oral Tablet Weight [Percocet 74.091, 5/325] kg, BID, Start date: 04/15/18 9:00:00 CDT, Duration: 30 day, Stop date: 05/14/18 17:00:00 CDT carvedilol No Notes: Memor ia 7-08 Give with l 14:00: food. [place] 00 (Same As: Coreg) calcium No Notes: Memoria acetate 667 7-08 Same as l MG Oral 14:00: Phoslo Gel Herm hannah Capsule 00 Cap Amlodipine No Notes: Memor ia 7-08 (Same as: l 14:00: Norvasc) [place] 00 Morphine 2018-0 No 2 mg, 1 Memori a 7-08 mL, Route: l 09:49: IVP, Drug form: SOLN, Q4H, Dosing Weight 87.784, kg, PRN Pain Score 6-10, Start date: 04/15/18 4:49:00 CDT, Duration: 30 day, Stop date: 05/15/18 4:48:00 CDT Morphine 2017-0 No 2 mg, 1 Memori a 7-08 mL, Route: l 09:49: IVP, Drug form: SOLN, Q4H, Dosing Weight 87.784, kg, PRN Pain Score 6-10, Start date: 04/15/18 4:49:00 CDT, Duration: 30 day, Stop date: 05/15/18 4:48:00 CDT Ambien 2017-0 No Notes: Memoria - (Same As: l 08:47: Ambien) [place] 00 Ambien 2017-0 No Notes: Memoria 04-15 (Same As: l 08:47: Ambien) [place] 00 Hydroxyzine 2018-0 Yes 25 mg = 1 M emoria Hydrochlori 7-08 tab, PO, l de 25 MG 08:12: TID, PRN [place] nn Oral Tablet 00 Anxiety, # 40 tab, 0 Refill(s) Hydroxyzine 2018-0 Yes 25 mg = 1 M emoria Hydrochlori 7-08 tab, PO, l de 25 MG 08:12: TID, PRN [place] nn Oral Tablet 00 Anxiety, # 40 tab, 0 Refill(s) Insulin 2017-0 No Notes: Memoria Lispro 04-15 (Same as: l 07:15: Humalog ) Roll in palms of hands gently; Do not shake `vigorousl y. "Single Patient Use Only " WASTE: F/P - Black; E - [employer]looks ([employer]me) Trash Bin Stable for 28 days at room temperatur e. Expires in days from ____Date Dextrose 2017-0 No 25 gm, 50 Kojo lynn 50% Syringe 7-08 mL, Route: l 07:15: IVP, Drug Form: INJ, Dosing Weight 74.091, kg, PRN, PRN Blood Glucose Results, Start date: 04/15/18 2:15:00 CDT, Duration: 30 day, Stop date: 05/15/18 2:14:00 CDT Glucagon 2017-0 No 1 mg, Memoria 04-15 Route: IM, l 07:15: Drug form: [place] 00 PDR/INJ, PRN, Dosing Weight 74.091, kg, PRN Blood Glucose Results, Start date: 04/15/18 2:15:00 CDT, Duration: 30 day, Stop date: 05/15/18 2:14:00 CDT Insulin 2018-0 No Notes: Memoria Lispro 04-15 (Same as: l 07:15: Humalog ) [place] 00 Roll in palms of hands gently; Do not shake `vigorousl y. "Single Patient Use Only " WASTE: F/P - Black; E - Municipal Trash Bin Stable for 28 days at room temperatur e. Expires in days from ____Date Dextrose 2017- No 25 gm, 50 Kojo lynn 50% Syringe 7-08 mL, Route: l 07:15: IVP, Drug [place] 00 Form: INJ, Dosing Weight 74.091, kg, PRN, PRN Blood Glucose Results, Start date: 04/15/18 2:15:00 CDT, Duration: 30 day, Stop date: 05/15/18 2:14:00 CDT Glucagon No 1 mg, Memoria 04-15 Route: IM, l 07:15: Drug form: [place] 00 PDR/INJ, PRN, Dosing Weight 74.091, kg, PRN Blood Glucose Results, Start date: 04/15/18 2:15:00 CDT, Duration: 30 day, Stop date: 05/15/18 2:14:00 CDT Ergocalcife 2017-0 No 50,000 Kojo lynn rol [id number] 7-08 IntlUnit, l UNT Oral 07:00: 1 cap, Marlo Capsule 00 Route: PO, Drug form: CAP, qWeek, Dosing Weight 74.091, kg, Start date: 04/15/18 2:00:00 CDT, Duration: 30 day, Stop date: 05/13/18 9:00:00 CDT Ergocalcife 2017-0 No 50,000 [place] rol [id number] 7-08 IntlUnit, l UNT Oral 07:00: 1 cap, Marlo Capsule 00 Route: PO, Drug form: CAP, qWeek, Dosing Weight 74.091, kg, Start date: 04/15/18 2:00:00 CDT, Duration: 30 day, Stop date: 05/13/18 9:00:00 CDT Alprazolam No Notes: Memor ia 2 MG Oral 04-15 With food l Tablet 06:56: or milk [place] [Xanax] 00 (Same as: Xanax) Alprazolam 2018-0 No Notes: Memor ia 2 MG Oral 04-15 With food l Tablet 06:56: or milk [place] [Xanax] 00 (Same as: Xanax) NS (Bolus) No 250 mL, Kojo lynn IV 7-08 500 ml/hr, l 06:34: Infuse [place] 00 Over: 0.5 hr, Route: IV, 250, Drug form: INJ, ONCE, Priority: STAT, Dosing Weight 74.091 kg, Start date: 04/15/18 1:34:00 CDT, Stop date: 04/15/18 1:34:00 CDT NS (Bolus) No 250 mL, Kojo lynn IV 7-08 500 ml/hr, l 06:34: Infuse [place] 00 Over: 0.5 hr, Route: IV, 250, Drug form: INJ, ONCE, Priority: STAT, Dosing Weight 74.091 kg, Start date: 04/15/18 1:34:00 CDT, Stop date: 04/15/18 1:34:00 CDT Hydralazine No 10 mg, Kojo lynn 04-15 Route: l 06:27: IVP, ONCE, Dosing Weight 74.091, kg, Priority: STAT, Start date: 04/15/18 1:27:00 CDT, Stop date: 04/15/18 1:27:00 CDT Hydralazine 2017-0 No 10 mg, [place] l[place] 08 Route: l 06:27: IVP, ONCE, [place] 00 Dosing Weight 74.091, kg, Priority: STAT, Start date: 04/15/18 1:27:00 CDT, Stop date: 04/15/18 1:27:00 CDT Amlodipine 0 No Notes: Memor ia 7-08 (Same as: l 03:50: Norvasc) [place] Hydralazine 2017-0 No Notes: Kojo lynn 7-08 (Same as: l 03:50: Apresoline [place] ) Push over 5 minutes Amlodipine 2017-0 No Notes: Memor ia 7-08 (Same as: l 03:50: Norvasc) [place] Hydralazine 2017-0 No Notes: Kojo lynn 7-08 (Same as: l 03:50: Apresoline [place] 00 ) Push over 5 minutes Clonidine No 0.1 mg, Memor ia Hydrochlori 7-08 Route: PO, l de 0.1 MG 03:02: Drug form: He rmann Oral Tablet 00 TAB, ONCE, Dosing Weight 74.091, kg, Priority: STAT, Start date: 04/14/18 22:02:00 CDT, Stop date: 04/14/18 22:02:00 CDT Clonidine No 0.1 mg, Memor ia Hydrochlori 7-08 Route: PO, l de 0.1 MG 03:02: Drug form: He rmann Oral Tablet 00 TAB, ONCE, Dosing Weight 74.091, kg, Priority: STAT, Start date: 04/14/18 22:02:00 CDT, Stop date: 04/14/18 22:02:00 CDT Clonidine No Notes: Memori a Hydrochlori 7-08 (Same As: l de 0.1 MG 00:45: Catapres) Her meeks Oral Tablet 00 Clonidine No Notes: Memori a Hydrochlori 7-08 (Same As: l de 0.1 MG 00:45: Catapres) Her meeks Oral Tablet 00 Saline No Notes: Memoria Flush 0.9% 7-07 (Same as: l 23:55: BD [place] 00 Posiflush) Saline No Notes: Memoria Flush 0.9% 7-07 (Same as: l 23:55: BD [place] 00 Posiflush) vancomycin No Notes: Memor ia + Sodium 6-11 TIME l Chloride 18:00: CRITICAL [place] nn 0.9% IV 100 00 MEDICATION mL (Same As: Vancocin) For adult patients only: Round to nearest 250 mg per Medical Staff approval vancomycin No Notes: Memor ia + Sodium [...] 0 Refill(s), Pharmacy: [facility] #[id number] cefdinir 2018-0 Yes 300 mg = 1 Mem oria 300 MG Oral 6-11 cap, PO, l Capsule 17:08: Q12H, X 7 [place] nn day, # 14 cap, 0 Refill(s), Pharmacy: [facility] #[id number] heparin 2018-0 No 10,000 Memoria 6-11 unit, 10 l 15:00: mL, Route: [place] 00 DIALYSIS, Drug form: INJ, ONCALL, Dosing Weight 100.455, kg, Start date: 03/19/18 10:00:00 CDT, Duration: 1 doses or times heparin 2018-0 No 10,000 Memoria 6-11 unit, 10 l 15:00: mL, Route: DIALYSIS, Drug form: INJ, ONCALL, Dosing Weight 100.455, kg, Start date: 03/19/18 10:00:00 CDT, Duration: 1 doses or times Sodium 2018-0 No 1,000 mL, Memori a Chloride 6-11 Rate: l 0.9% IV 14:14: 2000, [place] 1,000 mL 00 Route: IV, Dosing Weight 100.455 kg, Total Volume: 1,000, Start date: 03/19/18 9:14:00 CDT, Duration: 1 doses or times, Stop date: 03/20/18 9:13:00 CDT, 2.19, m2 Sodium 2018-0 No 1,000 mL, Memori a Chloride 6-11 Rate: l 0.9% IV 14:14: 2000, [place] 1,000 mL 00 Route: IV, Dosing Weight 100.455 kg, Total Volume: 1,000, Start date: 03/19/18 9:14:00 CDT, Duration: 1 doses or times, Stop date: 03/20/18 9:13:00 CDT, 2.19, m2 Tylenol 2017-0 No Notes: Do Memor ia 6-10 not exceed l 23:00: 4 gm/day. (Same as: Tylenol) Roxicodone 2017-0 No Notes: Memor ia 6-10 (Same as: l 23:00: Roxicodone ) Tylenol 2017-0 No Notes: Do Memor ia 6-10 not exceed l 23:00: 4 gm/day. [place] (Same as: Tylenol) Roxicodone No Notes: Memor ia 6-10 (Same as: l 23:00: Roxicodone ) Acetaminoph No Notes: Do M emoria en 325 MG / 6-10 not exceed l Oxycodone 22:00: 4gm/day of He r[place] Hydrochlori 00 acetaminop de 5 MG hen. Oral Tablet (Same as: [Percocet Percocet-5 5/325] /325) Acetaminoph No Notes: Do M emoria en 325 MG / 6-10 not exceed l Oxycodone 22:00: 4gm/day of He rmann Hydrochlori 00 acetaminop de 5 MG hen. Oral Tablet (Same as: [Percocet Percocet-5 5/325] /325) Amlodipine No Notes: Memor ia 6-10 (Same as: l 14:00: Norvasc) Amlodipine No Notes: Memor ia 6-10 (Same as: l 14:00: Norvasc) Alprazolam No Notes: Memor ia 2 MG Oral 6-10 With food l Tablet 04:20: or milk [place] [Xanax] 00 (Same as: Xanax) Alprazolam No Notes: Memor ia 2 MG Oral 6-10 With food l Tablet 04:20: or milk [place] [Xanax] 00 (Same as: Xanax) Vancomycin No 2000 mg: [facility] 6 infuse l Dosing + 03:00: over 2.5 [place] nn Sodium 00 hours For Chloride adult 0.9% IV 250 patients mL only: Round to nearest 250 mg per Medical Staff approval MEDICATION WASTE Product Size: 1000 mg Product Wasted: ___ mg Vancomycin No 2000 mg: [facility] 610 infuse l Dosing + 03:00: over 2.5 [place] nn Sodium 00 hours For Chloride adult 0.9% IV 250 patients mL only: Round to nearest 250 mg per Medical Staff approval MEDICATION WASTE Product Size: 1000 mg Product Wasted: ___ mg tamsulosin No Notes: Memor ia 6-10 (Same As: l 02:00: Flomax) [place] "Do Not Crush" carvedilol No Notes: Memor ia 6-10 Give with l 02:00: food. [place] 00 (Same As: Coreg) tamsulosin No Notes: Memor ia 6-10 (Same As: l 02:00: Flomax) [place] "Do Not Crush" carvedilol No Notes: Memor ia 6-10 Give with l 02:00: food. [place] 00 (Same As: Coreg) Hydralazine No Notes: Kojo lynn Hydrochlori 6-09 (Same as: l de 25 MG 22:00: Apresoline Her meeks Oral Tablet 00 ) May interfere w/enteral feedings Take With Food. Lasix No Notes: Memoria 6-09 (Same as: l 22:00: Lasix) [place] May cause GI upset. Give with food or milk. Hydralazine No Notes: Kojo lynn Hydrochlori 6-09 (Same as: l de 25 MG 22:00: Apresoline Her meeks Oral Tablet 00 ) May interfere w/enteral feedings Take With Food. Lasix No Notes: Memoria 6-09 (Same as: l 22:00: Lasix) [place] May cause GI upset. Give with food or milk. Hydralazine No Notes: Kojo lynn 6-09 (Same as: l 20:10: Apresoline [place] 00 ) Push over 5 minutes Acetaminoph No Notes: Kojo lynn en 325 MG / 6 (Same as: l Hydrocodone 20:10: [place] nn Bitartrate 00 325/5) Do 5 MG Oral not exceed Tablet 4gm/day of [[place] acetaminop 5/325] hen. Hydralazine No Notes: Kojo lynn 6-09 (Same as: l 20:10: Apresoline [place] 00 ) Push over 5 minutes Acetaminoph No Notes: Kojo lynn en 325 MG / 609 (Same as: l Hydrocodone 20:10: [place] nn Bitartrate 00 325/5) Do 5 MG Oral not exceed Tablet 4gm/day of [[place] acetaminop 5/325] hen. phenol No Notes: Memoria 03-17 Chlorasept l 20:08: ic [place] 00 (Same as: Chlorasept ic, Sore Throat [place]) WASTE: F/P - Black; E - [facility] Trash [facility] phenol No Notes: Memoria 03-17 Chlorasept l 20:08: ic [place] 00 (Same as: Chlorasept ic, Sore Throat [place]) WASTE: F/P - Black; E - [facility] Trash [facility] Furosemide Yes 80 mg = 1 Me moria 80 MG Oral 03-17 tab, PO, l Tablet 15:44: BID, 0 [place] [Lasix] 00 Refill(s) amLODIPine Yes 10 mg = 1 Me moria 10 mg oral 03-17 tab, PO, l tablet 15:44: Daily, # [place] 00 30 tab, 0 Refill(s) carvedilol Yes 3.125 mg = M emoria 3.125 mg 03-17 1 tab, PO, l oral tablet 15:44: Q12H, # 60 [place] 00 tab, 0 Refill(s) calcium Yes 2,001 mg = Kojo lynn acetate 667 03-17 3 cap, PO, l MG Oral 15:44: TID, 0 [place] Capsule 00 Refill(s) Acetaminoph Yes 1 tab, PO, Memoria en 325 MG / 6 BID, 0 l Oxycodone 15:44: Refill(s) Her [...] 15:44: Bedtime, 0 Herm hannah 00 Refill(s) Furosemide Yes 80 mg = 1 Me moria 80 MG Oral 03-17 tab, PO, l Tablet 15:44: BID, 0 [place] [Lasix] 00 Refill(s) amLODIPine 2018 Yes 10 mg = 1 Me moria 10 mg oral 03-17 tab, PO, l tablet 15:44: Daily, # [place] 00 30 tab, 0 Refill(s) carvedilol Yes 3.125 mg = M emoria 3.125 mg 03-17 1 tab, PO, l oral tablet 15:44: Q12H, # 60 [place] 00 tab, 0 Refill(s) calcium Yes 2,001 mg = Kojo lynn acetate 667 03-17 3 cap, PO, l MG Oral 15:44: TID, 0 [place] Capsule 00 Refill(s) Acetaminoph Yes 1 tab, PO, Memoria en 325 MG / 03-17 BID, 0 l Oxycodone 15:44: Refill(s) Her constantino Hydrochlori 00 de 5 MG Oral Tablet [...] 03-17 porcine l 14:00: heparin heparin No Notes: Memoria - porcine l 14:00: heparin heparin No 10,000 Memoria 6- unit, 10 l 13:00: mL, Route: DIALYSIS, Drug form: INJ, ONCALL, Dosing Weight 100.455, kg, Start date: 03/17/18 8:00:00 CDT, Duration: 1 doses or times heparin No 10,000 Memoria 6-09 unit, 10 l 13:00: mL, Route: DIALYSIS, Drug form: INJ, ONCALL, Dosing Weight 100.455, kg, Start date: 03/17/18 8:00:00 CDT, Duration: 1 doses or times Mannitol Yes Notes: Memoria 03-17 (Same as: l 12:41: Osmitrol) [place] 00 Infuse through 5 micron or smaller filter WASTE: F/P - Sink; E - [facility] Trash [facility] Mannitol 2018-0 Yes Notes: Memoria 03-17 (Same as: l 12:41: Osmitrol) [place] 00 Infuse through 5 micron or smaller filter WASTE: F/P - Sink; E - [facility] Trash [facility] Vancomycin 2018-0 No 2001 mg: moria 03-17 infuse l 12:00: over 2.5 [place] 00 hours For adult patients only: Round to nearest 250 mg per Medical Staff approval MEDICATION WASTE Product Size: 1000 mg Product Wasted: ___ mg Sodium 2017-0 No 2,000 mL, Memori a Chloride 03-17 2000 l 0.9% 12:00: ml/hr, [place] (Bolus) IV 00 Infuse Over: 1 hr, Route: IV, 2,000, Drug form: INJ, ONCE, Priority: STAT, Dosing Weight 98.182 kg, Start date: 03/17/18 7:00:00 CDT, PRN Dialysis cefepime 2017-0 No Notes: Memoria 03-17 (Same As: l 12:00: Maxipime) [place] 00 MEDICATION WASTE Product Size: 1000 mg Product Wasted: ___ mg Vancomycin 2017-0 No 2001 mg: moria 03-17 infuse l 12:00: over 2.5 [place] 00 hours For adult patients only: Round to nearest 250 mg per Medical Staff approval MEDICATION WASTE Product Size: 1000 mg Product Wasted: ___ mg Sodium 2018-0 No 2,000 mL, Memori a Chloride 03-17 2000 l 0.9% 12:00: ml/hr, [place] (Bolus) IV 00 Infuse Over: 1 hr, Route: IV, 2,000, Drug form: INJ, ONCE, Priority: STAT, Dosing Weight 98.182 kg, Start date: 03/17/18 7:00:00 CDT, PRN Dialysis cefepime 2017-0 No Notes: Memoria 03-17 (Same As: l 12:00: Maxipime) [place] 00 MEDICATION WASTE Product Size: 1000 mg Product Wasted: ___ mg Saline 2018-0 No Notes: Memoria Flush 0.9% 03-17 (Same as: l 11:53: BD [place] 00 Posiflush) Acetaminoph No Notes: Do M emoria en 03-17 not exceed l 11:53: 4 gm/day. [place] 00 (Same as: Tylenol) Saline No Notes: Memoria Flush 0.9% 03-17 (Same as: l 11:53: BD [place] 00 Posiflush) Acetaminoph No Notes: Do M emoria en 03-17 not exceed l 11:53: 4 gm/day. [place] 00 (Same as: Tylenol) Insulin No Notes: Memoria Lispro 03-17 (Same as: l 11:49: Humalog ) [place] 00 Roll in palms of hands gently; Do not shake `vigorousl y. "Single Patient Use Only " WASTE: F/P - Black; E - [facility] Trash [facility] Stable for 28 days at room temperatur e. Expires in days from ____Date Glucagon 0 No 1 mg, Memoria 03-17 Route: IM, l 11:49: Drug form: [place] 00 PDR/INJ, PRN, Dosing Weight 98.182, kg, PRN Blood Glucose Results, Start date: 03/17/18 6:49:00 CDT, Duration: 30 day, Stop date: 04/16/18 6:48:00 CDT Dextrose No 25 gm, 50 Kojo lynn 50% Syringe 6- mL, Route: l 11:49: IVP, Drug [place] 00 Form: INJ, Dosing Weight 98.182, kg, PRN, PRN Blood Glucose Results, Start date: 03/17/18 6:49:00 CDT, Duration: 30 day, Stop date: 04/16/18 6:48:00 CDT Insulin No Notes: Memoria Lispro 03-17 (Same as: l 11:49: Humalog ) [place] 00 Roll in palms of hands gently; Do not shake `vigorousl y. "Single Patient Use Only " WASTE: F/P - Black; E - [facility] Trash [facility] Stable for 28 days at room temperatur e. Expires in days from ____Date Glucagon 2018-0 No 1 mg, Memoria 03-17 Route: IM, l 11:49: Drug form: [place] 00 PDR/INJ, PRN, Dosing Weight 98.182, kg, PRN Blood Glucose Results, Start date: 03/17/18 6:49:00 CDT, Duration: 30 day, Stop date: 04/16/18 6:48:00 CDT Dextrose 2017-0 No 25 gm, 50 Kojo lynn 50% Syringe 03-17 mL, Route: l 11:49: IVP, Drug [place] 00 Form: INJ, Dosing Weight 98.182, kg, PRN, PRN Blood Glucose Results, Start date: 03/17/18 6:49:00 CDT, Duration: 30 day, Stop date: 04/16/18 6:48:00 CDT Zosyn 2017-0 No Notes: Memoria 03-17 (Same as: l 10:49: Zosyn) Dosing based on Piperacill in component MEDICATION WASTE Product Size: 4500 mg Product Wasted: ___ mg Vancomycin 2017-0 No 2000 mg: Me moria 03-17 infuse l 10:49: over 2.5 [place] 00 hours For adult patients only: Round to nearest 250 mg per Medical Staff approval MEDICATION WASTE Product Size: 1000 mg Product Wasted: ___ mg Zosyn 2017-0 No Notes: Memoria 03-17 (Same as: l 10:49: Zosyn) Dosing based on Piperacill in component MEDICATION WASTE Product Size: 4500 mg Product Wasted: ___ mg Vancomycin 2018-0 No 2000 mg: Me moria - infuse l 10:49: over 2.5 [place] 00 hours For adult patients only: Round to nearest 250 mg per Medical Staff approval MEDICATION WASTE Product Size: 1000 mg Product Wasted: ___ mg Saline 2017-0 No Notes: Memoria Flush 0.9% 03-17 (Same as: l 07:36: BD [place] 00 Posiflush) Saline No Notes: Memoria Flush 0.9% 6-09 (Same as: l 07:36: BD [place] 00 Posiflush) Saline No Notes: Memoria Flush 0.9% 4-17 (Same as: l 00:31: BD [place] 00 Posiflush) Saline No Notes: Memoria Flush 0.9% 4-17 (Same as: l 00:31: BD [place] 00 Posiflush) Lasix No Notes: Memoria 3-15 (Same as: l 14:00: Lasix) [place] 00 May cause GI upset. Give with food or milk. Lasix No Notes: Memoria 3-15 (Same as: l 14:00: Lasix) [place] 00 May cause GI upset. Give with food or milk. calcitriol No 0.5 Memoria 0.5 mcg 3-14 microgram l oral 14:51: = 1 cap, [place] capsule 00 PO, Daily, # 30 cap, 0 Refill(s), Pharmacy: [facility] calcitriol No 0.5 Memoria 0.5 mcg 3-14 microgram l oral 14:51: = 1 cap, [place] capsule 00 PO, Daily, # 30 cap, 0 Refill(s), Pharmacy: [facility] Ergocalcife Yes 50,000 Kojo lynn rol [id number] 3-14 IntlUnit = l UNT Oral 14:47: 1 cap, PO, Her me[place] Capsule 00 qWeek, # 5 cap, 0 Refill(s), Pharmacy: [facility] Calcium No 2,000 mg = Kojo lynn Carbonate 3-14 4 tab, PO, l 500 MG 14:47: TID, # 168 [place] nn Chewable 00 tab, 0 Tablet Refill(s), Pharmacy: [facility] sevelamer No 2,400 mg = Me moria carbonate 3-14 3 tab, PO, l 800 mg oral 14:47: TID-Meals, [place] tablet 00 # 270 tab, 0 Refill(s), Pharmacy: [facility] Furosemide No 80 mg, PO, M emoria 80 MG Oral 3-14 Daily, # l Tablet 14:47: 30 ea, 0 [place] [Lasix] 00 Refill(s), Pharmacy: [facility] carvedilol No 3.125 mg = M emoria 3.125 mg 3-14 1 tab, PO, l oral tablet 14:47: Q12H, # 60 [place] 00 tab, 0 Refill(s), Pharmacy: [facility] amLODIPine No 10 mg = 2 Me moria 5 mg oral 3-14 tab, PO, l tablet 14:47: Daily, # [place] 00 60 tab, 0 Refill(s), Pharmacy: [facility] Ergocalcife Yes 50,000 Kojo lynn rol [id number] 3-14 IntlUnit = l UNT Oral 14:47: 1 cap, PO, Her meeks Capsule 00 qWeek, # 5 cap, 0 Refill(s), Pharmacy: [facility] Calcium No 2,000 mg = Kojo lynn Carbonate 3-14 4 tab, PO, l 500 MG 14:47: TID, # 168 [place] nn Chewable 00 tab, 0 Tablet Refill(s), Pharmacy: [facility] sevelamer No 2,400 mg = Me moria carbonate 3-14 3 tab, PO, l 800 mg oral 14:47: TID-Meals, [place] tablet 00 # 270 tab, 0 Refill(s), Pharmacy: [facility] Furosemide No 80 mg, PO, M emoria 80 MG Oral 3-14 Daily, # l Tablet 14:47: 30 ea, 0 [place] [Lasix] 00 Refill(s), Pharmacy: [facility] carvedilol No 3.125 mg = M emoria 3.125 mg 3-14 1 tab, PO, l oral tablet 14:47: Q12H, # 60 [place] 00 tab, 0 Refill(s), Pharmacy: [facility] amLODIPine No 10 mg = 2 Me moria 5 mg oral 3-14 tab, PO, l tablet 14:47: Daily, # [place] 00 60 tab, 0 Refill(s), Pharmacy: [facility] Calcium No Notes: Memoria Gluconate 3-14 WASTE: F/P l 11:50: - Sink; E - [facility] Trash [facility] Calcium No Notes: Memoria Gluconate 3-14 WASTE: F/P l 11:50: - Sink; E - [facility] Trash [facility] Coreg No Notes: Memoria 3-14 Give with l 02:00: food. (Same As: Coreg) Coreg No Notes: Memoria 3-14 Give with l 02:00: food. (Same As: Coreg) Lasix No Notes: Memoria 3-13 (Same as: l 14:00: Lasix) MEDICATION WASTE Product Size: 40 mg Product Wasted: ___ mg Vitamin D2 No Notes: Memor ia 3-13 (Same as: l 14:00: Vitamin D) "Do Not Crush" Lasix No Notes: Memoria 3-13 (Same as: l 14:00: Lasix) MEDICATION WASTE Product Size: 40 mg Product Wasted: ___ mg Vitamin D2 No Notes: Memor ia 3-13 (Same as: l 14:00: Vitamin D) "Do Not Crush" Calcium No Notes: Memoria Gluconate 3-13 WASTE: F/P l 11:39: - Sink; E - [facility] Trash [facility] Calcium No Notes: Memoria Gluconate 3-13 WASTE: F/P l 11:39: - Sink; E - [facility] Trash Bin [...] mg elemental calcium) Calcium No Notes: Memoria Carbonate 3-12 (Same As: l 18:00: Tums) Calcium Carbonate 500 mg = 200 mg elemental calcium Dose = mg calcium carbonate ( mg elemental calcium) Calcium No Notes: Memoria Gluconate 3-12 WASTE: F/P l 10:53: - Sink; E [place] - [facility] Trash [facility] Calcium No Notes: Memoria Gluconate 3-12 WASTE: F/P l 10:53: - Sink; E [place] - [facility] Trash [facility] Calcium No Notes: Memoria Gluconate 3-12 WASTE: F/P l 04:35: - Sink; E [place] - [facility] Tr[facility] Calcium No Notes: Memoria Gluconate 3-12 WASTE: F/P l 04:35: - Sink; E [place] - [facility] Trash [facility] RenaGel No Notes: Memoria 3-11 Same as: l 17:00: Renvela [place] 00 RenaGel No Notes: Memoria 3-11 Same as: l 17:00: Renvela [place] Lasix No Notes: Memoria 3-11 (Same as: l 14:00: Lasix) [place] 00 MEDICATION WASTE Product Size: 40 mg Product Wasted: ___ mg Venofer No Notes: Memoria 3-11 Each 5ml l 14:00: contains [place] 00 100mg elemental iron. Mix with NS Non-Formul heydi (Same as:Venofer ) Administer IV only. MEDICATION WASTE Product Size: 100 mg Product Wasted: ___ mg Lasix No Notes: Memoria 3-11 (Same as: l 14:00: Lasix) [place] MEDICATION WASTE Product Size: 40 mg Product Wasted: ___ mg Venofer No Notes: Memoria 3-11 Each 5ml l 14:00: contains [place] 00 100mg elemental iron. Mix with NS Non-Formul heydi (Same as:Venofer ) Administer IV only. MEDICATION WASTE Product Size: 100 mg Product Wasted: ___ mg Calcium No Notes: Memoria Gluconate 3-11 WASTE: F/P l 11:35: - Sink; E [place] 00 - [facility] Trash [facility] Calcium No Notes: Memoria Gluconate 3-11 WASTE: F/P l 11:35: - Sink; E [place] 00 - [facility] Trash [facility] Kayexalate No Notes: Memor ia 3-11 (sodium l 01:11: polystyren [place] 00 e sulfonate 15 gm/60 ml CANDACE) Shake well before use. (Same as: Kayexalate , SPS) sodium No Notes: Memoria bicarbonate 3-11 (sodium l 8.4% 01:11: bicarb [place] 00 8.4% (1 mEq/ml) 50 ml syringe) Kayexalate No Notes: Memor ia 3-11 (sodium l 01:11: polystyren [place] 00 e sulfonate 15 gm/60 ml CANDACE) Shake well before use. (Same as: Kayexalate , SPS) sodium No Notes: Memoria bicarbonate 3-11 (sodium l 8.4% 01:11: bicarb [place] 00 8.4% (1 mEq/ml) 50 ml syringe) Amlodipine No Notes: Memor ia 3-10 (Same as: l 15:00: Norvasc) [place] Amlodipine No Notes: Memor ia 3-10 (Same as: l 15:00: Norvasc) [place] 00 Kayexalate No Notes: Memor ia 3-10 (sodium l 13:38: polystyren [place] 00 e sulfonate 15 gm/60 ml CANDACE) Shake well before use. (Same as: Kayexalate , SPS) Kayexalate No Notes: Memor ia 3-10 (sodium l 13:38: polystyren [place] 00 e sulfonate 15 gm/60 ml CANDACE) Shake well before use. (Same as: Kayexalate , SPS) Calcium No Notes: Memoria Gluconate 3-09 WASTE: F/P l 23:43: - Sink; E [place] 00 - [facility] Trash Bin Calcium No Notes: Memoria Gluconate 3-09 WASTE: F/P l 23:43: - Sink; E [place] 00 - [facility] Dilaudid No Notes: Memoria - (Same as: l 21:38: Dilaudid) [place] Dilaudid No Notes: Memoria 12-15 (Same as: l 21:38: Dilaudid) [place] 00 Morphine No Notes: Memoria 12-15 (Same l 19:02: as:MORPhin [place] 00 e Sulfate) Morphine No Notes: Memoria 12-15 (Same l 19:02: as:MORPhin [place] 00 e Sulfate) Acetaminoph No 2 tabs, Mem oria en 300 MG / 3-09 PO, BID, 0 l Codeine 18:35: Refill(s) [place] nn Phosphate 00 60 MG Oral Tablet [Tylenol with Codeine #4] Acetaminoph No 2 tabs, Mem oria en 300 MG / 3-09 PO, BID, 0 l Codeine 18:35: Refill(s) [place] nn Phosphate 00 60 MG Oral Tablet [Tylenol with Codeine #4] Alprazolam Yes 2 mg = 1 Mem oria 2 MG Oral 3-09 tab, PO, l Tablet 18:19: BID, PRN [place] [Xanax] 00 as needed for anxiety, 0 Refill(s) Amlodipine No 1 cap, PO, M emoria 10 MG / 3-09 TID, 0 l Benazepril 18:19: Refill(s) Jarad rider hydrochlori 00 de 20 MG Oral Capsule [Lotrel 10/20] lisinopril No 20 mg = 1 Me moria 20 mg oral 3-09 tab, PO, l tablet 18:19: Daily, 0 [place] 00 Refill(s) Alprazolam Yes 2 mg = 1 Mem oria 2 MG Oral 3-09 tab, PO, l Tablet 18:19: BID, PRN [place] [Xanax] 00 as needed for anxiety, 0 Refill(s) Amlodipine No 1 cap, PO, M emoria 10 MG / 3-09 TID, 0 l Benazepril 18:19: Refill(s) Jarad rmann hydrochlori 00 de 20 MG Oral Capsule [Lotrel 10/20] lisinopril No 20 mg = 1 Me moria 20 mg oral 12-15 tab, PO, l tablet 18:19: Daily, 0 Refill(s) Calcium No Notes: Memoria Carbonate 12-15 (Same As: l 16:06: Tums) Calcium Carbonate 500 mg = 200 mg elemental calcium Dose = mg calcium carbonate ( mg elemental calcium) Calcitriol No Notes: Memor ia 12-15 (Same As: l 16:06: Rocaltrol) Calcium No Notes: Memoria Carbonate 12-15 (Same [...] 12-15 not exceed l 14:31: 4 gm/day. (Same as: Tylenol) Acetaminoph No Notes: Kojo lynn en 325 MG / 12-15 (Same as: l Hydrocodone 14:31: [place] nn Bitartrate 00 325/5) Do 5 MG Oral not exceed Tablet 4gm/day of acetaminop hen. Ondansetron No Notes: Kojo lynn 12-15 (Same as: l 14:31: Zofran) MEDICATION WASTE Product Size: 4 mg Product Wasted: ___ mg Acetaminoph No Notes: Do M emoria en 12-15 not exceed l 14:31: 4 gm/day. [place] 00 (Same as: Tylenol) Acetaminoph No Notes: Kojo lynn en 325 MG / 12-15 (Same as: l Hydrocodone 14:31: [place] nn Bitartrate 00 325/5) Do 5 MG Oral not exceed Tablet 4gm/day of acetaminop hen. Saline No Notes: Memoria Flush 0.9% 3-09 (Same as: l 12:30: BD [place] 00 Posiflush) Saline No Notes: Memoria Flush 0.9% 3-09 (Same as: l 12:30: BD [place] 00 Posiflush) Lasix No Notes: Memoria 3-09 (Same as: l 10:45: Lasix) [place] 00 MEDICATION WASTE Product Size: 40 mg Product Wasted: ___ mg Lasix No Notes: Memoria 3-09 (Same as: l 10:45: Lasix) [place] 00 MEDICATION WASTE Product Size: 40 mg Product Wasted: ___ mg Immunizations Ordered Immunization Filled Immunization Date Status Commen ts Source Name Name influenza virus 2020-07-15 Completed [facility] vaccine, inactivated 19:16:00 Herm hannah influenza virus 2020-07-15 Completed [facility] vaccine, inactivated 19:16:00 Herm hannah pneumococcal 2018-03-20 Completed [facility] 13-valent vaccine 21:53:00 [place] pneumococcal 2018-03-20 Completed [facility] 13-valent vaccine 21:53:00 [place] Vital Signs Vital Name Observation Time Observation Value Comments Source Heart Rate 2020-08-12 23:15:00 [facility] [place] Respitory Rate 2020-08-12 23:15:00 Memori al [place] Systolic (mm Hg) 2020-08-12 23:15:00 Kojo rial [place] Diastolic (mm Hg) 2020-08-12 23:15:00 Mem orial [place] Temperature Oral (F) 2020-08-12 23:15:00 98.1 F [facility] [place] Temperature Oral (F) 2020-08-12 19:20:00 98.0 F [facility] Heart Rate 2020-08-12 19:20:00 [facility] [place] Respitory Rate 2020-08-12 19:20:00 [facility] [place] Systolic (mm Hg) 2020-08-12 19:20:00 [facility] [place] Diastolic (mm Hg) 2020-08-12 19:20:00 [facility] [place] Respitory Rate 2020-08-12 19:00:00 [facility] [place] Systolic (mm Hg) 2020-08-12 19:00:00 [facility] [place] Diastolic (mm Hg) 2020-08-12 19:00:00 [facility] [place] Temperature Oral (F) 2020-08-12 14:00:00 97.7 F [facility] Heart Rate 2020-08-12 14:00:00 [facility] [place] Temperature Oral (F) 2020-08-10 06:00:00 98.3 F [facility] Heart Rate 2020-08-10 06:00:00 [facility] [place] Respitory Rate 2020-08-10 06:00:00 [facility] [place] Systolic (mm Hg) 2020-08-10 06:00:00 [facility] [place] Diastolic (mm Hg) 2020-08-10 06:00:00 [facility] [place] Temperature Oral (F) 2020-08-10 02:00:00 98.4 F [facility] [place] Heart Rate 2020-08-10 02:00:00 [facility] [place] Respitory Rate 2020-08-10 02:00:00 [facility] [place] Systolic (mm Hg) 2020-08-10 02:00:00 [facility] [place] Diastolic (mm Hg) 2020-08-10 02:00:00 [facility] [place] Temperature Oral (F) 2020-08-09 22:00:00 98.3 F [facility] [place] Heart Rate 2020-08-09 22:00:00 [facility] [place] Respitory Rate 2020-08-09 22:00:00 [facility] [place] Systolic (mm Hg) 2020-08-09 22:00:00 [facility] [place] Diastolic (mm Hg) 2020-08-09 22:00:00 [facility] [place] Height 2020-08-07 03:47:00 170.18 cm [facility] Weight 2020-08-07 03:47:00 [facility] [place] BMI Calculated 2020-08-07 03:47:00 [facility] [place] Height 2020-08-06 18:59:00 152.4 cm [facility] BMI Calculated 2020-08-06 18:59:00 [facility] Weight 2020-08-06 18:59:00 [facility] Respitory Rate 2020-07-24 16:17:00 [facility] [place] Systolic (mm Hg) 2020-07-24 16:17:00 [facility] Diastolic (mm Hg) 2020-07-24 16:17:00 [facility] [place] Temperature Oral (F) 2020-07-24 16:17:00 98.0 F [facility] Respitory Rate 2020-07-24 15:04:00 [facility] Systolic (mm Hg) 2020-07-24 15:04:00 [facility] [place] Diastolic (mm Hg) 2020-07-24 15:04:00 [facility] Heart Rate 2020-07-24 15:04:00 [facility] [place] Temperature Oral (F) 2020-07-24 15:04:00 97.9 F [facility] Height 2020-07-24 14:45:00 170.18 cm [facility] BMI Calculated 2020-07-24 14:45:00 [facility] [place] Weight 2020-07-24 14:45:00 [facility] [place] Heart Rate 2020-07-24 13:10:00 [facility] Respitory Rate 2020-07-24 13:10:00 [facility] [place] Systolic (mm Hg) 2020-07-24 13:10:00 [facility] [place] Diastolic (mm Hg) 2020-07-24 13:10:00 [facility] [place] Height 2020-07-24 12:55:00 170.18 cm [facility] BMI Calculated 2020-07-24 12:55:00 [facility] Weight 2020-07-24 12:55:00 [facility] Heart Rate 2020-07-24 12:55:00 [facility] [place] Temperature Oral (F) 2020-07-24 12:55:00 98.2 F [facility] Heart Rate 2020-07-15 19:07:00 [facility] [place] Respitory Rate 2020-07-15 19:07:00 [facility] Systolic (mm Hg) 2020-07-15 19:07:00 [facility] Diastolic (mm Hg) 2020-07-15 19:07:00 [facility] [place] Temperature Oral (F) 2020-07-15 17:00:00 98.1 F [facility] [place] Heart Rate 2020-07-15 17:00:00 [facility] [place] Systolic (mm Hg) 2020-07-15 17:00:00 [facility] [place] Diastolic (mm Hg) 2020-07-15 17:00:00 [facility] Respitory Rate 2020-07-15 17:00:00 [facility] [place] Temperature Oral (F) 2020-07-15 13:00:00 98.3 F [facility] Heart Rate 2020-07-15 13:00:00 [facility] Systolic (mm Hg) 2020-07-15 13:00:00 [facility] [place] Diastolic (mm Hg) 2020-07-15 13:00:00 [facility] [place] Temperature Oral (F) 2020-07-15 09:00:00 98.1 F [facility] Respitory Rate 2020-07-15 09:00:00 [facility] Height 2020-07-06 10:14:00 170.18 cm [facility] [place] BMI Calculated 2020-07-06 10:14:00 [facility] Weight 2020-07-06 10:14:00 [facility] Systolic (mm Hg) 2020-05-21 15:01:00 [facility] [place] Diastolic (mm Hg) 2020-05-21 15:01:00 [facility] Heart Rate 2020-05-21 15:01:00 [facility] Respitory Rate 2020-05-21 15:01:00 [facility] Height 2020-05-21 13:15:00 170.18 cm [facility] [place] BMI Calculated 2020-05-21 13:15:00 [facility] Weight 2020-05-21 13:15:00 [facility] Systolic (mm Hg) 2020-05-21 13:15:00 [facility] [place] Diastolic (mm Hg) 2020-05-21 13:15:00 [facility] [place] Heart Rate 2020-05-21 13:15:00 [facility] [place] Respitory Rate 2020-05-21 13:15:00 [facility] [place] Temperature Oral (F) 2020-05-21 13:15:00 98.5 F [facility] [place] Systolic (mm Hg) 2020-03-23 14:05:00 [facility] [place] Diastolic (mm Hg) 2020-03-23 14:05:00 [facility] Systolic (mm Hg) 2020-03-23 13:00:00 [facility] Diastolic (mm Hg) 2020-03-23 13:00:00 [facility] Temperature Oral (F) 2020-03-23 13:00:00 98.5 F [facility] Heart Rate 2020-03-23 13:00:00 [facility] [place] Respitory Rate 2020-03-23 13:00:00 [facility] [place] Systolic (mm Hg) 2020-03-23 11:10:00 [facility] Diastolic (mm Hg) 2020-03-23 11:10:00 [facility] [place] Respitory Rate 2020-03-23 11:10:00 [facility] [place] Heart Rate 2020-03-23 11:10:00 [facility] [place] Temperature Oral (F) 2020-03-23 11:10:00 98.4 F [facility] [place] Respitory Rate 2020-03-23 09:42:00 [facility] Heart Rate 2020-03-23 09:42:00 [facility] Temperature Oral (F) 2020-03-23 08:46:00 98.3 F [facility] [place] Height 2020-03-23 05:39:00 170.18 cm [facility] [place] BMI Calculated 2020-03-23 05:39:00 [facility] Weight 2020-03-23 05:39:00 [facility] Systolic (mm Hg) 2020-02-03 23:19:00 [facility] Diastolic (mm Hg) 2020-02-03 23:19:00 [facility] [place] Respitory Rate 2020-02-03 23:19:00 [facility] Heart Rate 2020-02-03 23:19:00 [facility] [place] Temperature Oral (F) 2020-02-03 23:19:00 98.6 F [facility] Systolic (mm Hg) 2020-02-03 22:04:00 [facility] Diastolic (mm Hg) 2020-02-03 22:04:00 [facility] [place] Respitory Rate 2020-02-03 22:04:00 [facility] [place] Heart Rate 2020-02-03 22:04:00 [facility] Systolic (mm Hg) 2020-02-03 20:14:00 [facility] Diastolic (mm Hg) 2020-02-03 20:14:00 [facility] Respitory Rate 2020-02-03 20:14:00 [facility] Heart Rate 2020-02-03 20:14:00 [facility] Temperature Oral (F) 2020-02-03 20:14:00 98.5 F [facility] Height 2020-02-03 19:22:00 170.18 cm [facility] [place] BMI Calculated 2020-02-03 19:22:00 [facility] [place] Weight 2020-02-03 19:22:00 [facility] Temperature Oral (F) 2020-02-03 19:22:00 99.0 F [facility] [place] Temperature Oral (F) 2019-11-05 18:00:00 98.3 F [facility] [place] Heart Rate 2019-11-05 18:00:00 [facility] Respitory Rate 2019-11-05 18:00:00 [facility] Systolic (mm Hg) 2019-11-05 18:00:00 [facility] Diastolic (mm Hg) 2019-11-05 18:00:00 [facility] Temperature Oral (F) 2019-11-05 14:00:00 98.1 F [facility] Heart Rate 2019-11-05 14:00:00 [facility] Respitory Rate 2019-11-05 14:00:00 [facility] Systolic (mm Hg) 2019-11-05 14:00:00 [facility] [place] Diastolic (mm Hg) 2019-11-05 14:00:00 [facility] [place] Respitory Rate 2019-11-05 12:36:00 [facility] Temperature Oral (F) 2019-11-05 10:00:00 98.0 F [facility] Heart Rate 2019-11-05 10:00:00 [facility] Systolic (mm Hg) 2019-11-05 10:00:00 [facility] Diastolic (mm Hg) 2019-11-05 10:00:00 [facility] [place] Height 2019-10-29 07:23:00 170.18 cm [facility] Weight 2019-10-29 07:23:00 [facility] BMI Calculated 2019-10-29 07:23:00 [facility] Height 2019-10-29 01:03:00 170.18 cm [facility] [place] BMI Calculated 2019-10-29 01:03:00 [facility] [place] Weight 2019-10-29 01:03:00 [facility] [place] Temperature Oral (F) 2019-08-20 14:07:00 98.8 F [facility] Heart Rate 2019-08-20 14:07:00 [facility] Respitory Rate 2019-08-20 14:07:00 [facility] [place] Systolic (mm Hg) 2019-08-20 14:07:00 [facility] Diastolic (mm Hg) 2019-08-20 14:07:00 [facility] [place] Systolic (mm Hg) 2019-08-20 12:15:00 [facility] Diastolic (mm Hg) 2019-08-20 12:15:00 [facility] [place] Heart Rate 2019-08-20 12:15:00 [facility] [place] Temperature Oral (F) 2019-08-20 09:46:00 98.3 F [facility] [place] Heart Rate 2019-08-20 09:46:00 [facility] [place] Respitory Rate 2019-08-20 09:46:00 [facility] Systolic (mm Hg) 2019-08-20 09:46:00 [facility] [place] Diastolic (mm Hg) 2019-08-20 09:46:00 [facility] Temperature Oral (F) 2019-08-20 06:02:00 98.5 F [facility] Respitory Rate 2019-08-20 06:02:00 [facility] [place] Height 2019-08-14 22:12:00 175.26 cm [facility] Weight 2019-08-14 22:12:00 [facility] BMI Calculated 2019-08-14 22:12:00 [facility] [place] Respitory Rate 2019-04-08 17:36:00 [facility] Systolic (mm Hg) 2019-04-08 17:36:00 [facility] Diastolic (mm Hg) 2019-04-08 17:36:00 [facility] Temperature Oral (F) 2019-04-08 17:36:00 98.0 F [facility] Heart Rate 2019-04-08 17:36:00 [facility] [place] Respitory Rate 2019-04-08 13:23:00 [facility] [place] Heart Rate 2019-04-08 13:23:00 [facility] Temperature Oral (F) 2019-04-08 13:23:00 98.1 F [facility] [place] Systolic (mm Hg) 2019-04-08 13:23:00 [facility] [place] Diastolic (mm Hg) 2019-04-08 13:23:00 [facility] [place] Systolic (mm Hg) 2019-04-08 08:40:00 [facility] Diastolic (mm Hg) 2019-04-08 08:40:00 [facility] [place] Respitory Rate 2019-04-08 08:40:00 [facility] [place] Heart Rate 2019-04-08 08:40:00 [facility] Temperature Oral (F) 2019-04-08 08:40:00 98.0 F [facility] [place] Weight 2019-04-06 04:23:00 [facility] BMI Calculated 2019-04-06 04:17:00 [facility] Height 2019-04-06 04:17:00 167.64 cm [facility] [place] Weight 2019-04-06 04:17:00 [facility] Respitory Rate 2018-07-24 20:59:00 [facility] [place] Systolic (mm Hg) 2018-07-24 20:59:00 [facility] [place] Diastolic (mm Hg) 2018-07-24 20:59:00 [facility] [place] Heart Rate 2018-07-24 20:59:00 [facility] [place] Temperature Oral (F) 2018-07-24 20:59:00 98.2 F [facility] Temperature Oral (F) 2018-07-24 16:59:00 98.3 F [facility] Heart Rate 2018-07-24 16:59:00 [facility] [place] Respitory Rate 2018-07-24 16:59:00 [facility] Systolic (mm Hg) 2018-07-24 16:59:00 [facility] [place] Diastolic (mm Hg) 2018-07-24 16:59:00 [facility] Systolic (mm Hg) 2018-07-24 16:33:00 [facility] Diastolic (mm Hg) 2018-07-24 16:33:00 [facility] Temperature Oral (F) 2018-07-24 16:33:00 98.2 F [facility] [place] Respitory Rate 2018-07-24 16:33:00 [facility] [place] Heart Rate 2018-07-24 16:33:00 [facility] Weight 2018-07-22 11:03:00 [facility] BMI Calculated 2018-07-22 11:03:00 [facility] [place] Height 2018-07-22 11:03:00 170.18 cm [facility] BMI Calculated 2018-07-22 01:54:00 [facility] [place] Height 2018-07-22 01:54:00 170.18 cm [facility] [place] Weight 2018-07-22 01:54:00 [facility] Respitory Rate 2018-07-21 02:35:00 [facility] Temperature Oral (F) 2018-07-21 02:35:00 98.6 F [facility] [place] Systolic (mm Hg) 2018-07-21 02:35:00 [facility] [place] Diastolic (mm Hg) 2018-07-21 02:35:00 [facility] Respitory Rate 2018-07-20 23:36:00 [facility] Systolic (mm Hg) 2018-07-20 23:36:00 [facility] Diastolic (mm Hg) 2018-07-20 23:36:00 [facility] Systolic (mm Hg) 2018-07-20 22:37:00 [facility] [place] Diastolic (mm Hg) 2018-07-20 22:37:00 [facility] [place] Respitory Rate 2018-07-20 22:37:00 [facility] [place] Heart Rate 2018-07-20 22:37:00 [facility] [place] Temperature Oral (F) 2018-07-20 22:37:00 97.7 F [facility] [place] Height 2018-07-20 22:37:00 170.18 cm [facility] BMI Calculated 2018-07-20 22:37:00 [facility] [place] Weight 2018-07-20 22:37:00 [facility] [place] BMI Calculated 2018-05-23 15:20:00 [facility] [place] Weight 2018-05-23 15:20:00 [facility] Respitory Rate 2018-05-23 15:20:00 [facility] [place] Heart Rate 2018-05-23 15:20:00 [facility] Height 2018-05-23 15:20:00 170 cm [facility] [place] Systolic (mm Hg) 2018-05-23 15:20:00 [facility] [place] Diastolic (mm Hg) 2018-05-23 15:20:00 [facility] [place] Systolic (mm Hg) 2018-04-15 21:25:00 [facility] [place] Diastolic (mm Hg) 2018-04-15 21:25:00 [facility] Respitory Rate 2018-04-15 16:40:00 [facility] Heart Rate 2018-04-15 16:40:00 [facility] Systolic (mm Hg) 2018-04-15 16:40:00 [facility] [place] Diastolic (mm Hg) 2018-04-15 16:40:00 [facility] Temperature Oral (F) 2018-04-15 16:40:00 98.2 F [facility] [place] Heart Rate 2018-04-15 13:15:00 [facility] [place] Temperature Oral (F) 2018-04-15 13:15:00 98.0 F [facility] [place] Systolic (mm Hg) 2018-04-15 13:15:00 [facility] [place] Diastolic (mm Hg) 2018-04-15 13:15:00 [facility] Respitory Rate 2018-04-15 13:15:00 [facility] [place] Temperature Oral (F) 2018-04-15 09:31:00 98.2 F [facility] Heart Rate 2018-04-15 09:31:00 [facility] [place] Respitory Rate 2018-04-15 09:31:00 [facility] [place] Weight 2018-04-15 07:53:00 [facility] [place] Weight 2018-04-14 23:25:00 [facility] [place] Height 2018-04-14 23:25:00 172.72 cm [facility] BMI Calculated 2018-04-14 23:25:00 [facility] [place] Systolic (mm Hg) 2018-03-20 16:07:00 [facility] Diastolic (mm Hg) 2018-03-20 16:07:00 [facility] [place] Respitory Rate 2018-03-20 16:07:00 [facility] Heart Rate 2018-03-20 16:07:00 [facility] Temperature Oral (F) 2018-03-20 16:07:00 98.4 F [facility] [place] Systolic (mm Hg) 2018-03-20 12:44:00 [facility] Diastolic (mm Hg) 2018-03-20 12:44:00 [facility] [place] Respitory Rate 2018-03-20 12:44:00 [facility] Heart Rate 2018-03-20 12:44:00 [facility] [place] Temperature Oral (F) 2018-03-20 12:44:00 98.3 F [facility] Respitory Rate 2018-03-20 08:46:00 [facility] Temperature Oral (F) 2018-03-20 08:46:00 98.3 F [facility] [place] Heart Rate 2018-03-20 08:46:00 [facility] [place] Systolic (mm Hg) 2018-03-20 08:46:00 [facility] [place] Diastolic (mm Hg) 2018-03-20 08:46:00 [facility] [place] BMI Calculated 2018-03-17 12:01:00 [facility] [place] Weight 2018-03-17 12:01:00 [facility] Height 2018-03-17 12:01:00 167.64 cm [facility] Weight 2018-03-17 07:27:00 [facility] [place] Temperature Oral (F) 2018-01-23 03:30:00 98.2 F [facility] [place] Respitory Rate 2018-01-23 03:30:00 [facility] [place] Systolic (mm Hg) 2018-01-23 03:30:00 [facility] [place] Diastolic (mm Hg) 2018-01-23 03:30:00 [facility] [place] Respitory Rate 2018-01-23 01:48:00 [facility] Heart Rate 2018-01-23 01:48:00 [facility] [place] Systolic (mm Hg) 2018-01-23 01:48:00 [facility] [place] Diastolic (mm Hg) 2018-01-23 01:48:00 [facility] [place] Temperature Oral (F) 2018-01-23 00:14:00 98.2 F [facility] Respitory Rate 2018-01-23 00:14:00 [facility] [place] Systolic (mm Hg) 2018-01-23 00:14:00 [facility] Diastolic (mm Hg) 2018-01-23 00:14:00 [facility] [place] Heart Rate 2018-01-23 00:14:00 [facility] [place] BMI Calculated 2018-01-23 00:14:00 [facility] [place] Height 2018-01-23 00:14:00 165.1 cm [facility] [place] Weight 2018-01-23 00:14:00 [facility] [place] Systolic (mm Hg) 2017-12-20 12:31:00 [facility] [place] Diastolic (mm Hg) 2017-12-20 12:31:00 [facility] [place] Temperature Oral (F) 2017-12-20 12:31:00 98.0 F [facility] [place] Respitory Rate 2017-12-20 12:31:00 [facility] [place] Heart Rate 2017-12-20 12:31:00 [facility] Systolic (mm Hg) 2017-12-20 05:00:00 [facility] [place] Diastolic (mm Hg) 2017-12-20 05:00:00 [facility] [place] Temperature Oral (F) 2017-12-20 05:00:00 98 F [facility] Heart Rate 2017-12-20 05:00:00 [facility] [place] Respitory Rate 2017-12-20 05:00:00 [facility] [place] Temperature Oral (F) 2017-12-20 01:00:00 97.6 F [facility] Heart Rate 2017-12-20 01:00:00 [facility] Systolic (mm Hg) 2017-12-20 01:00:00 [facility] [place] Diastolic (mm Hg) 2017-12-20 01:00:00 [facility] Respitory Rate 2017-12-20 01:00:00 [facility] [place] BMI Calculated 2017-12-15 16:46:00 [facility] [place] Weight 2017-12-15 16:46:00 [facility] [place] Height 2017-12-15 16:46:00 170.18 cm [facility] Height 2017-12-15 16:11:00 170.18 cm [facility] Weight 2017-12-15 11:31:00 [facility] Procedures Procedure Date / Time Performed Performing Clinician [facility] e Dialysis access site care [facility] [place] Knee maneuver [facility] [place] Shoulder manipulation [facility] ermann Encounters Start End Encounter Admission Attending Care Care Encounter Source Date/Time Date/Time Type Type Clinicians Facility Department ID 2019-04-05 Inpatient E [facility] MED [id number] [facility] L 20:14:00 2019-04-05 Inpatient [facility] [id number] [facility] H 18:31:48 2021-04-22 2021-04-22 [id number] 10:30:14 11:33:56 Visit [facility] [id number] [facility] [id number] 2020-08-06 2020-08-13 [facility]patient [facility] [id number] [facility] 18:41:30 00:50:00 [facility] [place] 12 [facility] 2020-08-06 2020-08-13 Inpatient [facility] [id number] [facility] 18:41:30 00:50:00 [facility] [place] 12 [facility] 2020-08-06 2020-08-12 Outpatient Brien, MHPL MHPL [id number] 13:41:30 18:50:00 John 12 2020-08-06 2020-08-06 Inpatient E [facility]BL MED [id number] MHBL 20:29:00 18:33:00 2020-08-06 2020-08-06 Outpatient Vu, Paulo MHPL MHPL [id number] 13:41:30 13:41:30 Bulmaro 12 2020-07-24 2020-07-24 Emergency [facility] [id number] [facility] 12:53:57 16:22:00 [facility] [place] 11 [facility] 2020-07-24 2020-07-24 Emergency [facility] [id number] [facility] 12:53:57 16:22:00 [facility] [place] 11 [facility] 2020-07-24 2020-07-24 Outpatient Vishnyakova MHPL MHPL [id number] 07:53:57 11:22:00 , Cecy 11 2020-07-24 2020-07-24 Emergency E MHBL MHBL [id number] MHBL 07:53:00 07:53:00 2020-07-06 2020-07-15 [facility] [id number] [facility] 10:06:46 22:00:00 [facility] [place] 10 [facility] 2020-07-06 2020-07-15 [facility] [id number] [facility] 10:06:46 22:00:00 [facility] [place] 10 [facility] 2020-07-06 2020-07-15 Outpatient Brien, MHPL MHPL [id number] 05:06:46 17:00:00 John 10 2020-07-06 2020-07-06 Inpatient E [facility]BL MED [id number] MHBL 08:50:00 05:06:00 2020-05-21 2020-05-21 [facility] [id number] [facility] 13:09:59 15:59:00 [facility] [place] 09 [facility] 2020-05-21 2020-05-21 Emergency [facility] [id number] [facility] 13:09:59 15:59:00 [facility] [place] 09 [facility] 2020-05-21 2020-05-21 Outpatient ElmerBLANKPL MHPL [id number] 08:09:59 10:59:00 Brenden Merida Edward 2020-05-21 2020-05-21 Emergency E MHBL MHBL [id number] MHBL 08:09:00 08:09:00 2020-03-23 2020-03-23 [facility] [id number] [facility] 05:18:16 15:31:00 [facility] [place] 08 [facility] 2020-03-23 2020-03-23 Emergency [facility] [id number] [facility] 05:18:16 15:31:00 [facility] [place] 08 [facility] 2020-03-23 2020-03-23 Outpatient BLANK ChoiPL MHPL [id number] 00:18:16 10:31:00 Werner Tim 08 2020-03-23 2020-03-23 Emergency E MHBL MHBL [id number] MHBL 00:18:00 00:18:00 2020-02-03 2020-02-03 [facility] [id number] [facility] 19:07:14 23:44:00 [facility] [place] 07 [facility] 2020-02-03 2020-02-03 [facility] [id number] [facility] 19:07:14 23:44:00 [facility] [place] 07 [facility] 2020-02-03 2020-02-03 Outpatient BLANK FaulknerPL MHPL [id number] 14:07:14 18:44:00 Michel French 07 2020-02-03 2020-02-03 Emergency E MHBL MHBL [id number] MHBL 14:07:00 14:07:00 2019-10-29 2019-11-06 [facility] [id number] [facility] 00:57:20 02:15:00 [facility] [place] 06 [facility] 2019-10-29 2019-11-06 Inpatient [facility] [id number] [facility] 00:57:20 02:15:00 [facility] [place] 06 l [facility] 2019-10-28 2019-11-05 Outpatient Josué, MHPL MHPL [id number] 18:57:20 20:15:00 Redd 06 2019-10-30 2019-10-28 Inpatient E MHBL MED [id number] MHBL 14:55:00 23:23:00 2019-08-16 2019-08-20 [facility] [id number] [facility] 00:36:00 19:40:00 [facility] [place] 10 [facility] 2019-08-16 2019-08-20 Inpatient [facility] [id number] [facility] 00:36:00 19:40:00 [facility] [place] 10 [facility] 2019-08-15 2019-08-20 Outpatient Lillie, MHPL MHPL [id number] 18:36:00 13:40:00 [facility] 10 2019-08-15 2019-08-14 Inpatient U MHBL MED [id number] MHBL 18:36:00 15:56:00 2019-04-06 2019-04-08 [facility] [id number] [facility] 01:14:00 21:53:00 [facility] [place] 79 [facility] 2019-04-06 2019-04-08 Inpatient [facility] [id number] [facility] 01:14:00 21:53:00 [facility] [place] 79 [facility] 2019-04-05 2019-04-08 Outpatient Charles, MHPL MHPL [id number] 20:14:00 16:53:00 Bandar 79 2018-07-22 2018-07-24 [facility] [id number] [facility] 01:45:00 23:05:00 [facility] [place] 05 [facility] 2018-07-22 2018-07-24 Inpatient [facility] [id number] [facility] 01:45:00 23:05:00 [facility] [place] 05 [facility] 2018-07-21 2018-07-24 Outpatient Starla MHPL MHPL [id number] 20:45:00 18:05:00 , Roger 05 Javier 2018-07-20 2018-07-21 [facility] [id number] [facility] 22:20:00 02:38:00 [facility] [place] 04 [facility] 2018-07-20 2018-07-21 Emergency [facility] [id number] [facility] 22:20:00 02:38:00 dean Sellers 04 [facility] 2018-07-20 2018-07-20 Outpatient Hugo MHPL MHPL [id number] 17:20:00 21:38:00 , Cecy Corado 2018-05-23 2018-06-22 OP [facility] [id number] [facility] 14:47:00 04:59:00 Transplant r Center 00 l [facility] 2018-05-23 2018-06-22 OP [facility] [id number] [facility] 14:47:00 04:59:00 Transplant r Center 00 l [facility] 2018-05-23 2018-06-21 Outpatient De [facility] [id number] 09:47:00 23:59:00 Roosevelt Ledezma Joanne Elidia 2018-04-14 2018-04-15 Observatio [facility] [id number] [facility] 23:17:00 21:55:00 n dean Sellers 03 [facility] 2018-04-14 2018-04-15 Observatio [facility] [id number] [facility] 23:17:00 21:55:00 n dean Sellers 03 [facility] 2018-04-14 2018-04-15 Outpatient Ajibade, MHPL PL [id number] 18:17:00 16:55:00 David 03 José Miguelwale 2018-03-17 2018-03-20 [facility] [id number] [facility] 07:25:00 22:12:00 dean Sellers 02 [facility] 2018-03-17 2018-03-20 Inpatient [facility] [id number] [facility] 07:25:00 22:12:00 dean Sellers 02 [facility] 2018-03-17 2018-03-20 Outpatient Sumner, MHPL PL [id number] 02:25:00 17:12:00 2018-01-22 2018-01-23 Emergency [facility] [id number] [facility] 23:36:00 03:58:00 dean Sellers [facility] 2018-01-22 2018-01-23 Emergency [facility] [id number] [facility] 23:36:00 03:58:00 [place] 01 l [facility] 2018-01-22 2018-01-[address] [place] [id number] 18:36:00 22:58:00 Osvaldo Lee 2017-12-15 2017-12-20 [facility]patient [facility] [id number] [facility] 11:29:00 18:55:00 [facility] [place] 00 l [facility] 2017-12-15 2017-12-20 Inpatient [facility] [id number] [facility] 11:29:00 18:55:00 [facility] [place] 00 l [facility] 2017-12-15 2017-12-20 Outpatient Josué, PL [facility] [id number] 05:29:00 13:55:00 Peter 00 Results Test Description Test Time Test Comments Results Result Comments Source CHEM PANEL 2020-08-12 79 [facility] 09:42:00 [place] CHEM PANEL 2020-08-12 21 [facility] 09:42:00 [place] CHEM PANEL 2020-08-12 7.93 [facility] 09:42:00 [place] CHEM PANEL 2020-08-12 139 [facility] 09:42:00 [place] CHEM PANEL 2020-08-12 3.2 [facility] 09:42:00 [place] CHEM PANEL 2020-08-12 104 [facility] 09:42:00 [place] CHEM PANEL 2020-08-12 27 [facility] 09:42:00 [place] CHEM PANEL 2020-08-12 8.8 [facility] 09:42:00 [place] CHEM PANEL 2020-08-12 11.2 [facility] 09:42:00 [place] CHEM PANEL 2020-08-12 7 [facility] 09:42:00 [place] HEMATOLOGY 2020-08-12 4.7 [facility] 09:42:00 [place] HEMATOLOGY 2020-08-12 1.2 [facility] 09:42:00 [place] HEMATOLOGY 2020-08-12 0.2 [facility] 09:42:00 [place] HEMATOLOGY 2020-08-12 0.2 [facility] 09:42:00 [place] HEMATOLOGY 2020-08-12 71.0 [facility] 09:42:00 [place] HEMATOLOGY 2020-08-12 2.0 [facility] 09:42:00 [place] HEMATOLOGY 2020-08-12 18.0 [facility] 09:42:00 [place] HEMATOLOGY 2020-08-12 3.0 [facility] 09:42:00 [place] HEMATOLOGY 2020-08-12 3.0 [facility] 09:42:00 [place] HEMATOLOGY 2020-08-12 2.0 [facility] 09:42:00 [place] HEMATOLOGY 2020-08-12 1.0 [facility] 09[facility]42:00 [place] HEMATOLOGY 2020-08-12 0.0 [facility] 09:42:00 [place] HEMATOLOGY 2020-08-12 1 [facility] 09:42:00 [place] HEMATOLOGY 2020-08-12 Normal [facility] 09:42:00 (08/12/20 3:42 [place] AM) HEMATOLOGY 2020-08-12 Normal [facility] 09:42:00 (08/12/20 3:42 [place] AM) HEMATOLOGY 2020-08-12 09:42:00 Test Item Value Reference Range Interpretation Comme nts Tot Cell Ct (test code = Tot Cell Ct) 100 1 [facility] [id number] 09:42:00Moderate *ABN*(08/12/20 3:42 AM) [facility] TvfbkotXCXIQHPZOX5068-02-47 09:42:006.4[facility] 2020-08-12 09:42:003.02[facility] YxljhbeUHXIVODUML4222-10-84 09:42:009.0[facility] HneinudGVGHXOUNQR3940-85-87 09:42:0025.9[facility] JkgqjlnCMWJIGPFZY7285-84-04 09:42:0085.7[facility] IyafnelDWYUDUOEOQ9527-22-87 09:42:00 Test Item Value Reference Range Interpretation Comments MCH (test code = MCH) 30.0 pg 27.0-31.0 [facility] CzofmdnGQZLYBBDTR0311-96-40 09:42:0034.9[facility] 2020-08-12 09:42:0014.8[facility] RzwnqjhNGLTNGFBMF7765-06-69 09:42:10145Emexceem XwleqyjTWHRKZAZZY3191-21-18 09:42:007.0[facility]annCHEM CTPSF9156-24-86 09:42:0079[facility]annCHEM ZYUAT5029-04-85 09:42:0021[facility]annCHEM ETLIM1397-69-76 09:42:007.93[facility]annCHEM MDZCM5680-05-77 09:42:42000 [facility] DFVSS7238-94-94 09:42:003.2[facility]annCHE[facility] PANEL 2020-08-12 09:42:04608Xarjrwbq HermannCHEM ASMQK7127-02-50 09:42:0027[facility]annCHEM BVFJF7409-23-22 09:42:008.8[facility] HermannCHEM IAMBO1476-33-10 09:42:0011.2[facility]annCHEM RDHLB7337-35-42 09:42:007[facility] ARCEXHOUEY0035-38-48 09:42:004.7[facility] HyyushuYYRWARGVHE6594-60-96 09:42:001.2 [facility] ZtnxaupSDGJURUZEZ8743-17-26 09:42:000.2[facility] HermannHEMATOLOGY 2020-08-12 09:42:000.2[facility] BwsrfiyCLVVUKOJZC5868-89-26 09:42:0071.0[facility] IofbqfxZKKOHIFGER2698-80-73 09:42:002.0[facility] RdwshigPBAFAHRFAJ3849-13-12 09:42:0018.0[facility] GjgfdgrVPJVAQBBHL5326-04-43 09:42:003.0[facility] PRJVLLWKGO5117-84-05 09:42:003.0[facility] HmassxkRJIWZHBMYQ9899-35-04 09:42:002.0 [facility] SghxvpeFPHXKJIWAY2401-33-01 09:42:001.0[facility]annHEMATOLOGY 2020-08-12 09:42:000.0[facility] JvdvtaaKNUHKLAVQR3810-44-92 09:42:001[facility] UmbmyiwJUKQWAYLZI9692-08-73 09:42:00Normal (08/12/20 3:42 AM)[facility] LHMFBPXOFD7649-63-65 09:42:00Normal (08/12/20 3:42 AM)[facility]annHEMATOLOGY 2020-08-12 09:42:00 Test Item Value Reference Range Interpretation Comments Tot Cell Ct (test code = Tot Cell Ct) 100 1 [facility] IftwltvDQERILNWSL0518-43-65 09:42:00Moderate *ABN*(08/12/20 3:42 AM) [facility] QkrvvipBIGFBDWEFY5932-88-13 09:42:006.4[facility]annHEMATOLOGY 2020-08-12 09:42:003.02[facility] WrihbbbXNUXZXJGAE9202-51-52 09:42:009.0[facility] SxevnkqGIJMDHXRCF0871-87-46 09:42:0025.9[facility] NmowmgqZMEQQMRLQS8482-06-66 09:42:0085.7[facility] TbnhhevNIRUDLJWBW3533-28-51 09:42:00 Test Item Value Reference Range Interpretation Comments MCH (test code = MCH) 30.0 pg 27.0-31.0 [facility] GebvkrwQWXVBYRDTX4612-75-59 09:42:0034.9[facility]annHEMATOLOGY 2020-08-12 09:42:0014.8[facility] WfquqdiCYBGXCEXYQ8718-81-54 09:42:34497Hvnbbkwb OlqplupADFCQUZULC1753-37-13 09:42:007.0[facility] HermannCHEM XRQVB0753-76-67 09:35:0080[facility]annCHEM SHSNN3343-17-73 09:35:0013[facility]annCHEM BTCVQ3015-49-38 09:35:005.51[facility]annCHEM KTCRF4895-15-07 09:35:47101 [facility]annCHEM PADLJ6415-29-55 09:35:003.2[facility] HermannCHEM PANEL 2020-08-11 09:35:66500Cvaetggs HermannCHEM COGTK3123-13-09 09:35:0028[facility]annCHEM RQURN5692-21-56 09:35:008.4[facility]annCHEM RHFRS8327-23-35 09:35:0010.2[facility] HermannCHEM OMXDP9758-12-88 09:35:0010[facility] BWKLAUSBYW2473-47-67 09:35:0068.4[facility] JbtykfdMKPTELSRMI4225-92-85 09:35:00 17.8[facility] JuxjdecDTRJQZLKAY1131-81-83 09:35:009.3[facility]annHEMATOLOGY 2020-08-11 09:35:003.7[facility] GpwzmdoYWZCBXCWSF7300-32-22 09:35:000.8[facility] SluvlprBEOOOMONBP3522-89-83 09:35:004.1[facility] MoudydcUEDIWILSDR9328-87-21 09:35:001.1[facility] LjstusoZAMHEYCEHU8760-84-76 09:35:000.6[facility] WNJMOCOOHN1431-60-63 09:35:000.2[facility] NgwuhxwKCUVOKVFTI2221-48-89 09:35:006.0 [facility] SeehbhkUZQHOQJEKQ2242-69-72 09:35:002.84[facility]annHEMATOLOGY 2020-08-11 09:35:008.1[facility] JzplgccRCDCKGQPNW4179-48-32 09:35:0024.2[facility] GckbsxkMPGQHUVYDH7456-17-28 09:35:0085.3[facility] MbfhzbkMOGICSDZCG6422-56-67 09:35:00 Test Item Value Reference Range Interpretation Comments MCH (test code = MCH) 28.7 pg 27.0-31.0 [facility] UgundviZFZZAFSLTR9205-58-80 09:35:0033.6[facility]annHEMATOLOGY 2020-08-11 09:35:0014.5[facility] SikwonoXWVMWRVNSD6760-35-42 09:35:67712Aknczdkx UlowwslKTBQEALIVF4144-80-24 09:35:007.4[facility] HermannCHEM YFFKB4970-60-67 09:35:0080[facility]annCHEM YDIAG9284-49-34 09:35:0013[facility]annCHEM LRPJL3785-98-71 09:35:005.51[facility] HermannCHEM NBUAZ4402-03-84 09:35:40495 [facility]annCHEM GFFNF7579-43-78 09:35:003.2[facility] HermannCHEM PANEL 2020-08-11 09:35:78780Yzacdvnl HermannCHEM OVMHH5741-16-92 09:35:0028[facility] HermannCHEM OPTVV8708-29-45 09:35:008.4[facility] HermannCHEM JSBSO9232-77-08 09:35:0010.2[facility] HermannCHEM VGSID1039-30-49 09:35:0010[facility] EAQOTZYQUY2225-73-01 09:35:0068.4[facility] ItduytfOPXDBWYUKR5702-55-35 09:35:00 17.8[facility] EcdsstgEMWOVZKDBI6140-70-55 09:35:009.3[facility]annHEMATOLOGY 2020-08-11 09:35:003.7[facility] EbbvficXUWIQARZVK9335-97-00 09:35:000.8[facility] WmtwetnZMNNYKPJWZ6306-77-85 09:35:004.1[facility] QkaegtsMRERGXOYQW4800-20-12 09:35:001.1[facility] VizoqyyHZLIEYTOTA8998-50-56 09:35:000.6[facility] XTRKNUOKQV8104-55-24 09:35:000.2[facility] VskmowmJCPQPRNJWU0058-51-78 09:35:006.0 [facility] TywbxgvJTQNTIZFYI1676-06-33 09:35:002.84[facility]annHEMATOLOGY 2020-08-11 09:35:008.1[facility] QgrpfgnHGMMEZQAXK2577-14-84 09:35:0024.2[facility] CdqoznyUNRPZFDLVF5557-06-99 09:35:0085.3[facility] YyjfeexUFVDQLWMAM9263-30-01 09:35:00 Test Item Value Reference Range Interpretation Comments MCH (test code = MCH) 28.7 pg 27.0-31.0 [facility] FgktdvsURQFTOQDLM3490-19-89 09:35:0033.6[facility] HermannHEMATOLOGY 2020-08-11 09:35:0014.5[facility] GgzgeotIENQUFVDKU1445-01-25 09:35:44773Cfevezya PlxwthjRYZHPJDJTN4409-68-96 09:35:007.4[facility] HermannCHEM HRTUR5983-93-22 09:39:66917Tzhhrpxx HermannCHEM ETJHD2522-74-65 09:39:0021[facility]annCHEM YJWME3057-14-03 09:39:006.77[facility] HermannCHEM FMJMS9290-62-37 09:39:05473 [facility]annCHEM KUAEY2264-96-78 09:39:003.5[facility] HermannCHEM PANEL 2020-08-10 09:39:83635Uxyajino HermannCHEM GNFEM5518-98-87 09:39:0029[facility] HermannCHEM ERJOO0017-59-06 09:39:009.5[facility] HermannCHEM PFQDX0597-07-61 09:39:007.9[facility] HermannCHEM DIXTX8675-58-64 09:39:008[facility] QOZAXHUSQR8118-98-59 09:39:003.8[facility] KartfglARRRJCPQBT8869-50-26 09:39:001.1 [facility] NepqkszTMMENSTQJS9606-54-33 09:39:000.2[facility] HermannHEMATOLOGY 2020-08-10 09:39:000.4[facility] TvmtpqqCDPUEZPVDQ5522-58-48 09:39:0064.0[facility] AevtawgLLZGXTJKRT9428-00-96 09:39:002.0[facility] KjmzehnVJQKWKWITU8457-84-65 09:39:0020.0[facility] FzywfxuVKRYUGTDUX5715-88-17 09:39:004.0[facility] ITHJASIHYY8836-65-78 09:39:007.0[facility] FcufgijTCQMIYRKWK4078-52-32 09:39:003.0 [facility] KkxzgwoSCHZFFGYEH4525-84-43 09:39:000.0[facility] HermannHEMATOLOGY 2020-08-10 09:39:001[facility] PcjxzpsNWPEPGPEJI1183-04-61 09:39:00Normal (08/10/20 3:39 AM)[facility] WfticmhRWVAWCLEWE1352-48-51 09:39:00Normal (08/10/20 3:39 AM) [facility] DelwfzvNBCXKGXRBA8233-16-14 09:39:005.7[facility] HermannHEMATOLOGY 2020-08-10 09:39:002.61[facility] BnvgxzbNNBWFDHQCM5350-68-75 09:39:007.5[facility] WxjqfhgPLRVHGIFPF3120-55-87 09:39:0022.3[facility] WvewnxpHPTDHVKUDY3486-05-12 09:39:0085.6[facility] EifxsjgTSOUDUSBOO8801-02-43 09:39:00 Test Item Value Reference Range Interpretation Comments MCH (test code = MCH) 28.8 pg 27.0-31.0 [facility] TgtqjihIRXKHFGSTX1990-33-03 09:39:0033.6[facility] HermannHEMATOLOGY 2020-08-10 09:39:0013.9[facility] SnkylomXWKQGVBFKJ9724-50-49 09:39:15932Sebxvthu UlzffcmTQFAINTQOP5351-33-47 09:39:007.5[facility] HermannCHEM BMEAH6605-90-77 09:39:02222Ubcifvin HermannCHEM AWEJZ5502-49-29 09:39:0021[facility] HermannCHEM LSXME8922-73-80 09:39:006.77[facility] HermannCHEM PJFWE3178-60-89 09:39:20048 [facility]annCHEM GZGPW7544-97-81 09:39:003.5[facility] HermannCHEM PANEL 2020-08-10 09:39:49930Iigrjrxf HermannCHEM MLRKE6678-53-76 09:39:0029[facility] HermannCHEM MEWJZ8190-48-76 09:39:009.5[facility] HermannCHEM FLODA1759-63-43 09:39:007.9[facility] HermannCHEM PKCHW9247-25-20 09:39:008[facility] PLENHIZWMW6342-04-86 09:39:003.8[facility] UtwiiwwFNOTFMMQNS2080-78-30 09:39:001.1 [facility] CmuazerDXBUIELRLO1935-77-24 09:39:000.2[facility]annHEMATOLOGY 2020-08-10 09:39:000.4[facility] MqikqegLHYVOELNPF0307-97-67 09:39:0064.0[facility] YtlclfhQNIRYCCLWU5300-63-10 09:39:002.0[facility] HjrvoetWTSSCAJVOC1870-74-75 09:39:0020.0[facility] XercjhoYTMHFXTSZQ1823-21-20 09:39:004.0[facility] SLNFDEZQAH7961-60-47 09:39:007.0[facility] ZztppvyOYONAGZIMM5500-66-64 09:39:003.0 [facility] GhgkdnlDTXCIESJWR9046-63-18 09:39:000.0[facility]annHEMATOLOGY 2020-08-10 09:39:001[facility] SulhzbbPIRERSWGHC7857-74-70 09:39:00Normal (08/10/20 3:39 AM)[facility] QfaisusACYPLQWUKM6990-58-53 09:39:00Normal (08/10/20 3:39 AM) [facility] WcqfosxCDCKNQUJSO9300-96-17 09:39:005.7[facility]annHEMATOLOGY 2020-08-10 09:39:002.61[facility] RjhepwyJGXXSJCNVV0717-93-24 09:39:007.5[facility] ZnktlrkZRTLXHWRBX4118-98-35 09:39:0022.3[facility] UbmgvcbEZMOCDAOKY0466-53-30 09:39:0085.6[facility] HqarrepONBIDHJTYL4998-07-07 09:39:00 Test Item Value Reference Range Interpretation Comments MCH (test code = MCH) 28.8 pg 27.0-31.0 [facility] YsvgkiaFITJDRFKNB0452-34-84 09:39:0033.6[facility]annHEMATOLOGY 2020-08-10 09:39:0013.9[facility] XlqvfzaHLRKFYZUEE3703-38-79 09:39:00211Vgbjkckx BrdftrvAMHXZHWVHO9334-38-99 09:39:007.5[facility] KcyagrrLMLNJTPMMH1140-89-07 16:40:000.6[facility] CuohdudYTTFYEJQVR5299-22-75 16:40:005.7[facility] AEUJLCKNTH5253-94-97 16:40:002.82[facility] NygicyqLVFJDGAAKZ2538-15-78 16:40:00 8.0[facility] MdirdrnKNEGNZCVQW4419-94-08 16:40:0024.2[facility]annHEMATOLOGY 2020-08-09 16:40:0085.8[facility] PklkwxzYSQWAFPFNO6345-55-82 16:40:00 Test Item Value Reference Range Interpretation Comments MCH (test code = MCH) 28.6 pg 27.0-31.0 [facility] FhfqkfrDQVWIYNVSY9825-46-98 16:40:0033.3[facility] HermannHEMATOLOGY 2020-08-09 16:40:0014.1[facility] VgarkmvVMHBXGIIUZ8272-95-78 16:40:77829Sefghwjr JumaqylLQMZAANIZU7284-27-94 16:40:007.2[facility] MgpvrgoETROMOXJUV0280-39-92 16:40:0072.6[facility] VitcwrqCCTEJUZADX0140-46-76 16:40:0014.6[facility] EIXVRNMZSS8028-60-24 16:40:007.8[facility] LxywkmdUCNAJVIVZW3883-47-78 16:40:004.4 [facility] UwcomvsYXRLWJGSEV0849-92-07 16:40:004.2[facility]annHEMATOLOGY 2020-08-09 16:40:000.8[facility] TnybhssUJVTUBDKQL2737-49-63 16:40:000.4[facility] MsfhjyqZJKOEDXRMW6214-03-27 16:40:000.2[facility] ToyhiqzIECQERBUBC7740-80-73 16:40:007[facility] VymwfxvOGXGPEGWCG7251-35-50 16:40:000.[facility] MTAPNWQEAL7144-07-58 16:40:005.7[facility] CrekrmeXJKSSIMORV7178-25-21 16:40:00 2.82[facility] NwwgxlqCDCFTWJHUK9256-16-42 16:40:008.0[facility]annHEMATOLOGY 2020-08-09 16:40:0024.2[facility] YihkjvhMMBHOXPKYD8658-18-69 16:40:0085.8[facility] IwdfmwfZBSZBJSQOF5877-09-32 16:40:00 Test Item Value Reference Range Interpretation Comments MCH (test code = MCH) 28.6 pg 27.0-31.0 [facility] ThnrzikDMPJVPQCGO7761-66-60 16:40:0033.3[facility]annHEMATOLOGY 2020-08-09 16:40:0014.1[facility] TmxynrhBSDNAKXKDH5264-02-78 16:40:98510Xbvoofba CcxobwtKUSOTYUBHK3624-12-31 16:40:007.2[facility] FnuoiotKPAWPZICPH7386-47-39 16:40:0072.6[facility] UhnyikjPUAJDGQZFD0486-35-66 16:40:0014.6[facility] KLYRZDRKUX5639-85-73 16:40:007.8[facility] MfnicppEGTWYWKRQX2761-69-97 16:40:004.4 [facility] ErbgpnlBTMCAEIGLU2808-35-91 16:40:004.2[facility]annHEMATOLOGY 2020-08-09 16:40:000.8[facility] IpqdnteHSIHZVCSAZ0869-01-88 16:40:000.4[facility] CihftjmXKDBAAQJJB5314-26-44 16:40:000.2[facility] FgmoemjSPNBUHGKLM8380-08-79 16:40:007[facility] HermannCHEM OEXNU7654-28-26 14:48:004.2[facility] HermannCHEM CZVPP9334-28-85 14:48:001.3[facility] HermannCHEM CXLTZ1628-41-99 14:48:0014 [facility]annCHEM KFNCK5152-34-78 14:48:0017[facility]annCHEM PANEL 2020-08-09 14:48:0092[facility]annCHEM RVCXY1374-13-22 14:48:000.5[facility]annCHEM YUTPR2669-26-53 14:48:00 Test Item Value Reference Range Interpretation Comments B/C Ratio (test code = B/C Ratio) 3 1 6-25 [facility]annCHEM WYPRF2613-25-87 14:48:002.9[facility]annCHEM PANEL 2020-08-09 14:48:00 Test Item Value Reference Range Interpretation Comments A/G Ratio (test code = A/G Ratio) 0.4 1 0.7-1.6 [facility]annCHEM IFWXL9711-64-79 14:48:001.8[facility]annCHEM PANEL 2020-08-09 14:48:0070[facility]annCHEM XNMHT4595-12-44 14:48:0025[facility]annCHEM HFHQU0998-88-30 14:48:008.85[facility]annCHEM OIVOK1237-60-86 14:48:92649Lfdfjzns HermannCHEM EKPUM1677-71-99 14:48:004.0[facility]annCHEM YZIVJ7534-05-34 14:48:37376Kewabnyg HermannCHEM BNLAV7193-20-63 14:48:0030 [facility]annCHE[facility] TVJWE7436-47-65 14:48:007.5[facility]annCHEM PANEL 2020-08-09 14:48:0013.0[facility]annCHEM LQJQL5268-70-88 14:48:006[facility]annCHEM UVRSV2626-73-88 14:48:004.2[facility]annCHEM RPTUK9520-85-06 14:48:001.3[facility]annCHEM NJXWF1629-10-58 14:48:0014[facility]annCHEM MVFWE8677-78-68 14:48:0017[facility]annCHEM YFECY9988-75-91 14:48:0092 [facility]annCHE[facility] MHQQO8021-47-57 14:48:000.5[facility]annCHEM PANEL 2020-08-09 14:48:00 Test Item Value Reference Range Interpretation Comments B/C Ratio (test code = B/C Ratio) 3 1 6-25 [facility]annCHEM HCNFA8847-14-67 14:48:002.9[facility]annCHEM PANEL 2020-08-09 14:48:00 Test Item Value Reference Range Interpretation Comments A/G Ratio (test code = A/G Ratio) 0.4 1 0.7-1.6 [facility]annCHEM FRFXK7527-41-84 14:48:001.8[facility]annCHEM PANEL 2020-08-09 14:48:0070[facility]annCHEM EPDGS9654-09-94 14:48:0025[facility]annCHEM VHWLI8195-08-87 14:48:008.85[facility]annCHEM IXBBW2454-49-76 14:48:61691Zukfytbf HermannCHEM JVWPS0944-96-66 14:48:004.0[facility]annCHEM ADNJY6166-98-57 14:48:96092Cmkemixi HermannCHEM RREBE6960-11-82 14:48:0030 [facility]annCHE[facility] XFPUF7656-02-21 14:48:007.5[facility]annCHEM PANEL 2020-08-09 14:48:0013.0[facility] HermannCHEM GFBZE7264-67-45 14:48:006[facility] DelgroaNUCPOFNDPN9918-12-76 10:41:007.6[facility] QantapnOUHTHYOCBH5866-75-72 10:41:007.6[facility] KuucqvrISXBPWEICG7610-28-19 02:33:007.9[facility] KOPNBEEWYN2528-99-36 02:33:007.9[facility] UvofowzMDBUQJAOQX5810-50-79 20:10:00 23.0[facility] AbuavnsEGMIJCOFTT4355-89-74 20:10:0023.0[facility] HermannBODY FLUIDS 2020-08-08 19:15:00Light Yellow (08/08/20 2:15 PM)[facility]annBODY FLUIDS 2020-08-08 19:15:00Slight Cloudy (08/08/20 2:15 PM)[facility]annBODY FLUIDS 2020-08-08 19:15:98589Czsxggng HermannBODY KYMMAD4225-34-46 19:15:74543Efiqwnyj HermannBODY MKRCAB0183-27-66 19:15:0018[facility]annBODY HCWATT2885-77-60 19:15:0010[facility]annBODY KWIXYD0889-06-84 19:15:0044[facility]annBODY GNLPVO4555-27-20 19:15:0026[facility]annBODY TIPPLH8029-87-41 19:15:002 [facility]annBODY BVUQWQ9901-66-42 19:15:00Abdomn (08/08/20 2:15 PM)[facility]annBODY NVKXAW9367-55-49 19:15:00Light Yellow (08/08/20 2:15 PM)[facility]annBODY XYMZFJ7725-81-29 19:15:00Slight Cloudy (08/08/20 2:15 PM)[facility]annBODY TLRWRL4546-08-42 19:15:70907Mdxtqvjg HermannBODY TMKSRZ6947-08-55 19:15:07691Ugmxcmem HermannBODY YEXIZG3966-24-22 19:15:0018[facility]annBODY SJXLZB6655-80-73 19:15:0010[facility]annBODY PPPEKH8704-70-53 19:15:0044 [facility]annB[facility] VKJYND7755-62-46 19:15:0026[facility]annBODY FLUIDS 2020-08-08 19:15:002[facility]annB[facility] ZNAEOJ2650-22-23 19:15:00Abdomn (08/08/20 2:15 PM)[facility] WSTIQKK1934-66-77 15:28:09Product available 4(08/08/20 10:28 AM)[facility] AKYJMNR7878-67-71 15:28:09Product available 4(08/08/20 10:28 AM)[facility] 2020-08-08 14:41:00Negative (08/08/20 9:41 AM)[facility]annHEMATOLOGY 2020-08-08 14:41:001.0[facility] OfhnregMSBBIFGPZB8858-13-29 14:41:009.0[facility] FmpglpcYLFOOULGIZ8429-73-98 14:41:00See Note (08/08/20 9:41 AM)[facility] UFMXMCVULC6916-16-61 14:41:00Normal (08/08/20 9:41 AM)[facility]annHEMATOLOGY 2020-08-08 14:41:001+ *ABN*(08/08/20 9:41 AM)[facility]annHEMATOLOGY 2020-08-08 14:41:001+ *ABN*(08/08/20 9:41 AM)[facility]annHEMATOLOGY 2020-08-08 14:41:001+ (08/08/20 9:41 AM)[facility] JjjgmjsAWZTUSLUDZ7780-72-36 14:41:00Moderate *ABN*(08/08/20 9:41 AM)[facility] OipykcdJOFZETBTWY7350-51-57 14:41:006.0[facility] GmgkzxmYPEPYJWEXP0258-21-37 14:41:002.32[facility] XAYMQFSMKA9535-53-27 14:41:0019.8[facility] AenpwrhRSDTOMAZFB4913-24-75 14:41:00 85.6[facility] YtqmdldOSAJDKIQWS3216-77-87 14:41:00 Test Item Value Reference Range Interpretation Comments MCH (test code = MCH) 29.0 pg 27.0-31.0 [facility] PbmddchZXTBDHOOCG1225-94-57 14:41:0033.8[facility]annHEMATOLOGY 2020-08-08 14:41:0013.9[facility] BahgijqUBZQDOHAIX8110-02-34 14:41:44586Urfvdqtv JncxltvIBMDBOIEIZ0164-56-19 14:41:006.8[facility] YrwfxgwQBNUZNPONT9974-82-96 14:41:004.1[facility] YswobgbQZSDBHZICS4372-45-76 14:41:001.4[facility] MUFCLUSQSQ4763-05-01 14:41:000.1[facility] CyemaisWUJVQWJDNS7133-97-35 14:41:000.4 [facility] HprfrylXYCIAEKROO8168-42-58 14:41:0068.0[facility]annHEMATOLOGY 2020-08-08 14:41:0014.0[facility] NfsoyacYJPGEOTKTK4731-84-58 14:41:002.0[facility] VjywcjgOZKIXRHCMZ4502-77-94 14:41:006.0[facility]BL[facility] BANK RESULTS 2020-08-08 14:41:00Negative (08/08/20 9:41 AM)[facility]annHEMATOLOGY 2020-08-08 14:41:001.0[facility] WgphcfhIVZJPWJHHL8462-29-61 14:41:009.0[facility] MstxkcaUUOHADNCFX6865-99-45 14:41:00See Note (08/08/20 9:41 AM)[facility] GSHCDOFLBY1074-04-66 14:41:00Normal (08/08/20 9:41 AM)[facility]annHEMATOLOGY 2020-08-08 14:41:001+ *ABN*(08/08/20 9:41 AM)[facility]annHEMATOLOGY 2020-08-08 14:41:001+ *ABN*(08/08/20 9:41 AM)[facility]annHEMATOLOGY 2020-08-08 14:41:001+ (08/08/20 9:41 AM)[facility] YvjevazXVUZPNFAGB0823-70-33 14:41:00Moderate *ABN*(08/08/20 9:41 AM)[facility] TrgwfixJZLKHPLXVO1454-34-48 14:41:006.0[facility] HpedccrEKVAJIZNEP2952-34-63 14:41:002.32[facility] PKKFUGDUYR7420-76-95 14:41:0019.8[facility] PuleyaqYXOOGAAIRO9428-59-98 14:41:00 85.6[facility] OrrogzpHHKQADBEQN5548-34-89 14:41:00 Test Item Value Reference Range Interpretation Comments MCH (test code = MCH) 29.0 pg 27.0-31.0 [facility] AkwqxzkQOYSDWBKJS3044-00-18 14:41:0033.8[facility] HermannHEMATOLOGY 2020-08-08 14:41:0013.9[facility] HjaxkecGZMALUJIBW6213-43-97 14:41:56239Sstcmofw XtrwiteKOINSTKYLT4519-87-94 14:41:006.8[facility] OjpzzdbBCGYAENJBY3352-37-57 14:41:004.1[facility] BvpgyhjKZYPWKPTMC0408-09-58 14:41:001.4[facility] OEGAZUESHM0407-50-62 14:41:000.1[facility] XuvsoyeCMIUSXMPVE6519-78-46 14:41:000.4 [facility] XrfpnqxPLOVPJAOBU8887-86-12 14:41:0068.0[facility]annHEMATOLOGY 2020-08-08 14:41:0014.0[facility] NynvatmXZYVMPQOZO6150-35-03 14:41:002.0[facility] HqfqasvXOOLIORFPJ5128-80-30 14:41:006.0[facility]annCHEM JNYXQ7859-25-37 08:42:004.4[facility]annCHEM YNMLH1543-83-94 08:42:0080[facility]annCHEM AAXNL4122-15-77 08:42:0034[facility]annCHEM RRQVH3983-39-28 08:42:0010.90 [facility]annCHE[facility] BFTXP8236-55-03 08:42:53646Qdarkpch HermannCHEM PANEL 2020-08-08 08:42:003.6[facility]annCHEM JCQJZ7351-43-68 08:42:0099[facility]annCHEM YKKNC8753-69-84 08:42:0033[facility]annCHEM VRJKS5979-45-88 08:42:008.1[facility]annCHEM ECTQZ3754-34-54 08:42:009.[facility]annCHEM BUOZZ2188-45-77 08:42:005[facility] ByqptqzOJASQXMIYL4963-89-44 08:42:000.6 [facility] EtszaosFUEOFYHMAU0161-71-21 08:42:006.7[facility]annHEMATOLOGY 2020-08-08 08:42:002.53[facility] FnurtvcQWCLSGIODN4368-69-69 08:42:0084.8[facility] JnvxpluEHADXIFHKU4417-16-83 08:42:00 Test Item Value Reference Range Interpretation Comments MCH (test code = MCH) 28.5 pg 27.0-31.0 [facility] XcaxrpiSCLDKQKWZA6555-55-05 08:42:0033.6[facility]annHEMATOLOGY 2020-08-08 08:42:0014.4[facility] HkigfqoQLJIOLTPDM5871-34-03 08:42:51976Tfhhwjhq AfytsaaMTDKXWTXAV0163-16-93 08:42:007.0[facility] RycmxphTZBEDUSZIP0116-86-40 08:42:0071.1[facility] FifdhzfNXTEDGMFKP7688-26-18 08:42:0016.3[facility] LVNCDJFWIT9029-11-88 08:42:008.0[facility] VmgdtsmVSANHSRGUH3159-85-08 08:42:004.0 [facility] VyxmmtkWDUACEFNZR9289-77-15 08:42:004.7[facility]annHEMATOLOGY 2020-08-08 08:42:001.1[facility] AvoyrknOMDBZROMHA9271-70-22 08:42:000.5[facility] FjsbyojSRCAVDAYZT8686-99-25 08:42:000.3[facility]annCHEM WNCUB3590-61-70 08:42:004.4[facility]annCHEM MLVKM9674-43-42 08:42:0080[facility]annCHEM BHYIT3507-36-01 08:42:0034[facility]annCHEM CTKCT6044-65-22 08:42:0010.90 [facility]annCHEM NYFLS3541-24-28 08:42:61355Nngfwdju HermannCHEM PANEL 2020-08-08 08:42:003.6[facility]annCHEM DEHPZ7696-73-24 08:42:0099[facility]annCHEM PBREL8228-53-14 08:42:0033[facility]annCHEM GRLEZ9330-86-77 08:42:008.1[facility]annCHEM PENSZ8060-97-75 08:42:009.6[facility]annCHEM FZSCB8100-29-79 08:42:005[facility] UogwfuiHXBEJANXXS4738-36-01 08:42:000.6 [facility] UaderyhRPGZXJSJKX4774-90-22 08:42:006.7[facility]annHEMATOLOGY 2020-08-08 08:42:002.53[facility] OhwocecMRXYGTWLGU1419-69-79 08:42:0084.8[facility] TeecduyJFOQNNNZKD5322-66-91 08:42:00 Test Item Value Reference Range Interpretation Comments MCH (test code = MCH) 28.5 pg 27.0-31.0 [facility] EunlzjrNNPLCYMQZH0952-30-09 08:42:0033.6[facility]annHEMATOLOGY 2020-08-08 08:42:0014.4[facility] NvtsdfhUZOIILCURV0171-95-20 08:42:90918Neatnvvs NmptjzsUPHXAMGVIP5375-78-75 08:42:007.0[facility] SvdhejmJGLFOFVMYC1815-14-05 08:42:0071.1[facility] RpzqhexLSMLJJIILA0202-80-77 08:42:0016.3[facility] NYXLKVBGBR7260-41-63 08:42:008.0[facility] HjkfbzfELRXIBUWXJ4411-67-44 08:42:004.0 [facility] YehvyniHMSKQSRBFV5482-95-01 08:42:004.7[facility]annHEMATOLOGY 2020-08-08 08:42:001.1[facility] BfiggouHQUUTYUNDO1895-61-67 08:42:000.5[facility] NcjfqhxMKFUVYTIQR7165-99-26 08:42:000.3[facility] SoseuakUQNAZVRPSB5509-43-89 02:01:00 Test Item Value Reference Range Interpretation Comments PT (test code = PT) 13.2 s 12.0-14.7 [facility] IazxyxbQTCZTUFOHS2182-25-69 02:01:00 Test Item Value Reference Range Interpretation Comments INR (test code = INR) 1.00 1 0.85-1.17 [facility] QzdqbtsDBKJSIVXWD0380-71-70 02:01:00 Test Item Value Reference Range Interpretation Comments PTT (test code = PTT) 29.8 s 22.9-35.8 [facility] BjacrpqVYNCKICJOT1942-92-47 02:01:000.6[facility] HermannIMMUNOLOGY 2020-08-08 02:01:00Negative *NA*(08/07/20 9:01 PM)[facility]annHEMATOLOGY 2020-08-08 02:01:00 Test Item Value Reference Range Interpretation Comments PT (test code = PT) 13.2 s 12.0-14.7 [facility] LejpomnQZWNBSLQYH2683-72-12 02:01:00 Test Item Value Reference Range Interpretation Comments INR (test code = INR) 1.00 1 0.85-1.17 [facility] AirgysbTFUPEMZSEP2014-93-73 02:01:00 Test Item Value Reference Range Interpretation Comments PTT (test code = PTT) 29.8 s 22.9-35.8 [facility] LykdcyoXPRSCCOLYV0392-24-23 02:01:000.6[facility] HermannIMMUNOLOGY 2020-08-08 02:01:00Negative *NA*(08/07/20 9:01 PM)[facility]annCHEM PANEL 2020-08-07 21:23:0072[facility]annCHEM GSQVZ6263-34-40 21:23:0028[facility]annCHEM HTCEO6094-32-11 21:23:009.63[facility]annCHEM ZJGFQ3727-49-28 21:23:95372Mzzfunrd HermannCHEM MVYNQ3173-91-68 21:23:003.6[facility]annCHEM MEGPX0152-64-72 21:23:0099[facility]annCHEM XXAJB0073-32-21 21:23:0032 [facility]annCHE[facility] UYTGO6088-08-38 21:23:009.6[facility]annCHEM PANEL 2020-08-07 21:23:008.3[facility]annCHEM DDOIV7984-98-89 21:23:005[facility]annCHEM IDSFO7051-19-91 21:23:0072[facility]annCHEM XSGCU5525-90-05 21:23:0028[facility]annCHEM WDSWC5477-45-18 21:23:009.63[facility]annCHEM UCWRV8985-93-43 21:23:51338Ktahmknl HermannCHEM JTGPX9329-02-50 21:23:003.6 [facility]annCHEM UKVFV0317-18-95 21:23:0099[facility]annCHEM PANEL 2020-08-07 21:23:0032[facility]annCHEM CVUDP5235-29-73 21:23:009.[facility] HermannCHEM CKDYO3287-90-86 21:23:008.3[facility]annCHEM AUXWJ8060-97-56 21:23:005[facility] XzawfccWIANXTMOIW0370-28-21 15:21:00Not Detected (08/07/20 10:21 AM)[facility] YylpzvvVPZMKGWTCH2940-86-66 15:21:00Not Detected (08/07/20 10:21 AM)[facility] HermannCARDIAC PCFADRD5423-84-01 08:08:0050[facility] CHEM RUVMV8775-82-41 08:08:00 Test Item Value Reference Range Interpretation Comments B/C Ratio (test code = B/C Ratio) 3 1 6- [facility]annCHEM INSII1618-16-23 08:08:004.5[facility] HermannCHEM PANEL 2020-08-07 08:08:001.4[facility]annCHEM SKGRH7834-55-42 08:08:003.1[facility]annCHEM ZKUJV0167-27-78 08:08:00 Test Item Value Reference Range Interpretation Comments A/G Ratio (test code = A/G Ratio) 0.5 1 0.7-1.6 [facility]annCHEM VGNAX1477-35-79 08:08:0015[facility] HermannCHEM PANEL 2020-08-07 08:08:0016[facility] HermannCHEM BMUNY0442-34-69 08:08:0082[facility]annCHEM APLBS5997-02-28 08:08:000.4[facility]annCHEM STUZR0204-73-12 08:08:001.7[facility]annCHEM AJYCL7668-11-74 08:08:003.8[facility] NBENNURZSK0758-10-63 08:08:00 Test Item Value Reference Range Interpretation Comments PT (test code = PT) 13.0 s 12.0-14.7 [facility] GqethjuVRZYPCPMQX4695-95-52 08:08:00 Test Item Value Reference Range Interpretation Comments INR (test code = INR) 0.98 1 0.85-1.17 [facility] IzjspayHBQDQVLQRH5789-79-61 08:08:00 Test Item Value Reference Range Interpretation Comments PTT (test code = PTT) 30.5 s 22.9-35.8 [facility] SoakdtlLICZLWPQAD0140-05-10 08:08:000.1[facility] HermannCARDIAC ENZYMES 2020-08-07 08:08:0050[facility]annCHEM QTYIA6991-31-01 08:08:00 Test Item Value Reference Range Interpretation Comments B/C Ratio (test code = B/C Ratio) 3 1 6-25 [facility]annCHEM PRHBG5915-12-51 08:08:004.5[facility]M PANEL 2020-08-07 08:08:001.4[facility]annCHEM UTALB4779-89-48 08:08:003.1[facility]annCHE[facility] QWHPI7284-28-05 08:08:00 Test Item Value Reference Range Interpretation Comments A/G Ratio (test code = A/G Ratio) 0.5 1 0.7-1.6 [facility] MJZIA0268-08-08 08:08:0015[facility]annCHE[facility] PANEL 2020-08-07 08:08:0016[facility]annCHE[facility] DJEFS0693-00-61 08:08:0082[facility]CHE[facility] SJSVD7603-51-20 08:08:000.4[facility]annCHE[facility] TCUTE0419-48-78 08:08:001.7[facility]CHE[facility] GSUAE0121-65-85 08:08:003.8[facility] FETBSKNZJQ8357-43-03 08:08:00 Test Item Value Reference Range Interpretation Comments PT (test code = PT) 13.0 s 12.0-14.7 [facility] YneirxsTHKDYNPNUX1476-23-18 08:08:00 Test Item Value Reference Range Interpretation Comments INR (test code = INR) 0.98 1 0.85-1.17 [facility] BcqkcgeXMMDABKUBG7547-80-19 08:08:00 Test Item Value Reference Range Interpretation Comments PTT (test code = PTT) 30.5 s 22.9-35.8 [facility] WqphtffSIAXUMMRHD6416-44-85 08:08:000.1[facility]annHEMATOLOGY 2020-08-07 02:04:000.1[facility] BumlatsNDSVRVVMID3737-34-84 02:04:000.1[facility]annCHEM RHDIU2774-86-23 01:34:004.8[facility]CHE[facility] MIYNI2940-11-95 01:34:001.6[facility]annCHE[facility] ESWIK7588-54-24 01:34:003.2[facility]annCHE[facility] WJHIY7069-13-64 01:34:00 Test Item Value Reference Range Interpretation Comments A/G Ratio (test code = A/G Ratio) 0.5 1 0.7-1.6 [facility] SCRHK2651-52-90 01:34:0014[facility]annCHE[facility] PANEL 2020-08-07 01:34:0016[facility]annCHE[facility] AARHI3828-67-82 01:34:0085[facility]CHE[facility] CCGMA7540-15-24 01:34:000.4[facility]CHE[facility] HIUAE5916-98-32 01:34:00<0.1[facility]CHE[facility] VKOKE8161-56-25 01:34:004.8[facility] CHEM HTTPP5686-19-63 01:34:001.6[facility]CHE[facility] MLIZH8879-33-46 01:34:003.2 [facility] FVLXJ4295-63-72 01:34:00 Test Item Value Reference Range Interpretation Comments A/G Ratio (test code = A/G Ratio) 0.5 1 0.7-1.6 [facility] HDCXO6135-62-34 01:34:0014[facility]annCHE[facility] PANEL 2020-08-07 01:34:0016[facility]CHE[facility] DGYZS0299-91-99 01:34:0085[facility]CHE[facility] QNNRU4866-68-52 01:34:000.4[facility]annCHE[facility] ENYQP2760-78-87 01:34:00<0.1[facility]annCARDIAC SPDIKXA0169-66-69 22:24:000.03[facility]annCHEM NRXJW8663-89-75 22:24:001.6[facility] NjtjmicDETHHAZAJT9983-22-60 22:24:001.0[facility] CwmxginTNUGOWSORM3506-23-63 22:24:001.0[facility] MKMQLYZMMM8331-68-04 22:24:00Moderate *ABN*(08/06/20 5:24 PM)[facility] ETDVILWIVV8565-84-81 22:24:00 Test Item Value Reference Range Interpretation Comments PT (test code = PT) 12.9 s 12.0-14.7 [facility] MwqafgkYWIYDZBAQV7645-09-87 22:24:00 Test Item Value Reference Range Interpretation Comments INR (test code = INR) 0.97 1 0.85-1.17 [facility] QbhetleZFYBNSJWNT7259-72-12 22:24:002.0[facility]annHEMATOLOGY 2020-08-06 22:24:000.0[facility] DmvbcjtKFPTESIVNQ3652-83-54 22:24:00Normal (08/06/20 5:24 PM)[facility] WubsiohHOWRDGEJAS5654-19-04 22:24:00Normal (08/06/20 5:24 PM)[facility]annCARDIAC JPQYAJH8858-95-14 22:24:000.03[facility] CHEM WPNCB4577-90-38 22:24:001.6[facility] MzikhloABEKHZYVSV8289-40-69 22:24:001.0 [facility] CuudfbkEUSLZXBPKB0947-34-63 22:24:001.0[facility]annHEMATOLOGY 2020-08-06 22:24:00Moderate *ABN*(08/06/20 5:24 PM)[facility]annHEMATOLOGY 2020-08-06 22:24:00 Test Item Value Reference Range Interpretation Comments PT (test code = PT) 12.9 s 12.0-14.7 [facility] XjsdgbmKBAKATQWAZ7653-34-93 22:24:00 Test Item Value Reference Range Interpretation Comments INR (test code = INR) 0.97 1 0.85-1.17 [facility] SjawkwqGATDCUQWOG6653-54-67 22:24:002.0[facility]annHEMATOLOGY 2020-08-06 22:24:000.0[facility] YtisqncAGBBHCBZUV8771-46-88 22:24:00Normal (08/06/20 5:24 PM)[facility] XhcayheHXZQJETWAT0479-57-70 22:24:00Normal (08/06/20 5:24 PM)[facility]annCARDIAC HBYVJZW1327-96-77 13:32:000.03[facility] CHEM HHXMM9269-36-29 13:32:85052Ggvogmgo HermannCHEM HMDGR5690-37-52 13:32:0025 [facility]CHE[facility] UFONH3999-92-61 13:32:009.66[facility]annCHEM PANEL 2020-07-24 13:32:72474Vetihlzh HermannCHEM YRHBB5118-05-33 13:32:003.0[facility]annCHEM ESOAN4163-75-79 13:32:0091[facility]annCHEM QOCNA7674-14-94 13:32:0032[facility]annCHEM CKPAU8171-67-90 13:32:0012.0[facility]CHE[facility] FQAFW2298-96-20 13:32:008.7[facility]annCHEM RESCO2617-24-74 13:32:00 Test Item Value Reference Range Interpretation Comments B/C Ratio (test code = B/C Ratio) 3 1 6-25 [facility]CHE[facility] QUYUJ1954-22-22 13:32:004.9[facility]annCHEM PANEL 2020-07-24 13:32:001.5[facility]CHE[facility] LGTNQ3881-77-54 13:32:003.4[facility]annCHEM DAWGJ3990-71-06 13:32:00 Test Item Value Reference Range Interpretation Comments A/G Ratio (test code = A/G Ratio) 0.4 1 0.7-1.6 [facility]CHE[facility] XPMEP7383-48-28 13:32:0016[facility]annCHEM PANEL 2020-07-24 13:32:0022[facility]annCHEM BFXYQ0495-76-80 13:32:0088[facility]annCHEM CTMGE7604-75-79 13:32:000.5[facility]annCHEM BQLUK5444-94-89 13:32:005[facility] WpfidusRQWVWXXLDO4342-64-44 13:32:006.2[facility] SEMDRBKAOX3817-60-74 13:32:002.89[facility] MktuqenCCJQUNKHEY1118-34-96 13:32:00 8.4[facility] HbnylwqKIMLHPVYCP8252-17-93 13:32:0024.1[facility]annHEMATOLOGY 2020-07-24 13:32:0083.3[facility] QbbyzjgXYXEPRMGFO6044-66-94 13:32:00 Test Item Value Reference Range Interpretation Comments MCH (test code = MCH) 29.0 pg 27.0-31.0 [facility] HrztnuuGSRJLWPYMH4591-22-29 13:32:0034.8[facility] HermannHEMATOLOGY 2020-07-24 13:32:0013.6[facility] RhucxupNCBHHMQFRE6610-49-23 13:32:57516Ujpidyuo DoxjuzzHJVEAFMPYI1277-83-30 13:32:006.6[facility] VodaqdyZEDUTOTFQT0465-84-39 13:32:0073.5[facility] EdmzlhfMTMJMERMPQ3022-45-61 13:32:0011.4[facility] SJHCHFEFLM9042-07-52 13:32:008.7[facility] HulmehmIUUJKVGEHQ0152-46-19 13:32:005.4 [facility] UdsfbueEDMINOLEAF2516-21-95 13:32:001.0[facility] HermannHEMATOLOGY 2020-07-24 13:32:004.5[facility] ApokqnbGFPNOKGUFA6615-24-07 13:32:000.7[facility] LvqooigGAYIKSRWOC6652-73-84 13:32:000.5[facility] GtqkeqvISTIVOBNPL1352-63-73 13:32:000.3[facility] FxasadbPSTECXEPFH1502-47-55 13:32:000.1[facility] CARDIAC AJQURLL1715-21-07 13:32:000.03[facility]annCHEM CAYQA4375-33-73 13:32:10130Fvjcufbw HermannCHEM UCDDY8655-14-63 13:32:0025[facility]annCHEM ZTCMZ3579-53-13 13:32:009.66[facility]annCHEM TJFZJ4624-20-97 13:32:05567 [facility]CHE[facility] EPJOS0219-24-21 13:32:003.0[facility]annCHEM PANEL 2020-07-24 13:32:0091[facility]annCHEM GVVLM6931-27-49 13:32:0032[facility]annCHEM OPTIN9388-17-87 13:32:0012.0[facility]annCHEM ICBUE6486-66-35 13:32:008.7[facility]annCHEM WKTJI9026-80-05 13:32:00 Test Item Value Reference Range Interpretation Comments B/C Ratio (test code = B/C Ratio) 3 1 6-25 [facility]CHE[facility] UFABK4165-39-62 13:32:004.9[facility]annCHEM PANEL 2020-07-24 13:32:001.5[facility]annCHEM UHBFH0324-46-72 13:32:003.4[facility]annCHEM ZDHYT5804-47-03 13:32:00 Test Item Value Reference Range Interpretation Comments A/G Ratio (test code = A/G Ratio) 0.4 1 0.7-1.6 [facility]CHE[facility] NTABE0887-20-90 13:32:0016[facility]annCHEM PANEL 2020-07-24 13:32:0022[facility]annCHEM POYBZ8312-35-32 13:32:0088[facility]annCHEM NGDTE3633-54-71 13:32:000.5[facility]annCHEM ONITY4846-01-45 13:32:005[facility] HqhilqjOCIZRXUZDW2368-32-53 13:32:006.2[facility] PAINUYQNMR2820-97-27 13:32:002.89[facility] ZhwylfiPUNVRXPRNU6236-19-49 13:32:00 8.4[facility] OslpotxVSXBTMINIF1695-33-25 13:32:0024.1[facility] HermannHEMATOLOGY 2020-07-24 13:32:0083.3[facility] RqxpgkhNGNPYUODJV0572-37-51 13:32:00 Test Item Value Reference Range Interpretation Comments MCH (test code = MCH) 29.0 pg 27.0-31.0 [facility] NdypinkYSSUQTOGCB4210-74-03 13:32:0034.8[facility]annHEMATOLOGY 2020-07-24 13:32:0013.6[facility] SxmgepyQXNCJLIFBF5149-60-39 13:32:05308Idlfjuqy PfaffzzKVQCWEBJXD2726-88-17 13:32:006.6[facility] InsvhgxHNTYWTOEWX6652-17-41 13:32:0073.5[facility] CmmbofeHLRJJEQIXM4385-94-43 13:32:0011.4[facility] GAGOMPLVCA2301-97-95 13:32:008.7[facility] PdeqhpfYJBXEABMSF1389-76-13 13:32:005.4 [facility] JtxnnmvIOJBYTYFDY2525-37-18 13:32:001.0[facility]annHEMATOLOGY 2020-07-24 13:32:004.5[facility] VcdxbgmYWSXRHCWHN9443-58-06 13:32:000.7[facility] ZtawtexQXICGOUDMA2974-57-83 13:32:000.5[facility] CsyeclzCQYMGOTCLN4287-27-25 13:32:000.3[facility] UnficplPRFLWUEXVZ0002-99-18 13:32:000.1[facility]annCHEM PSBOU5216-12-81 08:13:59873Uiiqgbsn HermannCHEM VFFED2999-74-31 08:13:0026 [facility]annCHEM UKWSC9825-25-29 08:13:009.23[facility]annCHEM PANEL 2020-07-15 08:13:85989Ulmqaxyy HermannCHEM PKDPO3227-24-07 08:13:003.8[facility]annCHEM MPLJG8956-52-28 08:13:0097[facility]annCHEM DYWGG6031-98-65 08:13:0028[facility]annCHEM MQLVH0442-07-04 08:13:009.0[facility]annCHEM CIHPV4298-50-10 08:13:0013.8[facility]annCHEM DHUJD3356-30-53 08:13:006 [facility]annCHE[facility] UBRBF5721-22-43 08:13:29545Depuqvgk HermannCHEM PANEL 2020-07-15 08:13:0026[facility]annCHEM CLLPV7901-68-17 08:13:009.23[facility]annCHEM NWVIK9136-80-30 08:13:00356Ewwvhxou HermannCHEM NGWGT8543-20-12 08:13:003.8[facility]annCHEM VCQUB3135-45-49 08:13:0097[facility]annCHEM SKLSH5778-77-44 08:13:0028[facility]annCHEM RHFVL7747-16-37 08:13:009.0 [facility]annCHE[facility] ZATKW7259-44-11 08:13:0013.8[facility]annCHEM PANEL 2020-07-15 08:13:006[facility]annMOLECULAR RMDATSOSLZ4304-89-63 22:34:00 Negative (07/14/20 5:34 PM)[facility]URINE AND IUSXT7255-49-39 22:34:00None Seen (07/14/20 5:34 PM)[facility]annMOLECULAR DXFODEFBRZ7736-23-34 22:34:00 Negative (07/14/20 5:34 PM)[facility] AND ZJIMB7942-13-40 22:34:00None Seen (07/14/20 5:34 PM)[facility]annCHEM JYGEJ5686-97-01 08:37:52859Hyzkusom HermannCHEM ZMGKD9498-11-64 08:37:0030[facility]annCHEM HHDYR7684-10-64 08:37:009.56[facility]annCHEM KNKFK9271-03-82 08:37:24900Xwtvobbk HermannCHEM AIEOH5770-30-10 08:37:003.4[facility]annCHEM KEOTB9046-58-54 08:37:0099 [facility]CHE[facility] HGKXB0100-51-57 08:37:0028[facility]annCHEM PANEL 2020-07-14 08:37:008.6[facility]annCHEM FEEMW7727-92-06 08:37:0012.4[facility]annCHEM WSCIU7915-38-24 08:37:005[facility]annCHEM XZWLZ7983-72-83 08:37:97208Kzuezozk HermannCHEM IMXRL1688-16-75 08:37:0030[facility]annCHEM KYJUD0308-63-46 08:37:009.56[facility]annCHEM EVDUQ0062-69-18 08:37:37379 [facility]CHE[facility] QRVDO7444-19-54 08:37:003.4[facility]annCHEM PANEL 2020-07-14 08:37:0099[facility]annCHEM DHMNX7465-71-33 08:37:0028[facility]annCHEM IAWQF9949-93-00 08:37:008.6[facility]annCHEM GZUEW2861-37-07 08:37:0012.4[facility]annCHEM XLKPO7763-60-67 08:37:005[facility]annBODY TUBHGK5187-35-24 01:30:00Light Yellow (07/13/20 8:30 PM)[facility] ZQNEKF4522-28-16 01:30:00Clear (07/13/20 8:30 PM)[facility] FLUIDS 2020-07-14 01:30:00Colorless (07/13/20 8:30 PM)[facility]annBODY FLUIDS 2020-07-14 01:30:14951Naxgztoi HermannBODY RYSUTM4778-01-56 01:30:56979Sqajnpww HermannBODY PKVZCQ5556-99-94 01:30:00[place] (07/13/20 8:30 PM)[facility] BODY IMRKJD0784-91-22 01:30:0023[facility]annB[facility] JDCPGJ1865-63-85 01:30:0016 [facility] JNAKFI5230-48-69 01:30:0053[facility] FLUIDS 2020-07-14 01:30:006[facility]annB[facility] DWMKGT1252-64-49 01:30:002[facility] JTRTWL0810-40-31 01:30:00Light Yellow (07/13/20 8:30 PM)[facility] CPDJWM8060-16-92 01:30:00Clear (07/13/20 8:30 PM)[facility] TRFXUO5315-68-27 01:30:00Colorless (07/13/20 8:30 PM)[facility] FLUIDS 2020-07-14 01:30:81577Lyxdafuc HermannBODY IWGUHO1077-86-72 01:30:34260Tekvksch HermannBODY ZJAFVQ2307-72-75 01:30:00[place] (07/13/20 8:30 PM)[facility] BODY VUANPJ3243-08-96 01:30:0023[facility]annB[facility] VMAOCK2079-62-97 01:30:0016 [facility] NSMGLK3772-34-09 01:30:0053[facility]annB[facility] FLUIDS 2020-07-14 01:30:006[facility]annB[facility] JWFGNP2852-95-76 01:30:002[facility]annCHEM TIJVR4275-21-21 08:35:12387Njotwbco HermannCHEM KBFEC6960-90-04 08:35:0029[facility]annCHEM OAGSP4757-01-24 08:35:009.77[facility]annCHEM CQLYK8303-54-61 08:35:45563Zooudthu HermannCHEM OERRB4309-38-79 08:35:003.4 [facility]CHE[facility] UIOCC2638-36-96 08:35:0097[facility]annCHEM PANEL 2020-07-13 08:35:0031[facility]annCHEM XYNVH4543-45-40 08:35:008.8[facility]annCHEM JPDXB8428-29-56 08:35:008.4[facility]annCHEM RYDVX0960-81-56 08:35:005[facility]annCHEM JEYAM2052-95-42 08:35:87842Mkfggvjx HermannCHEM JUZDD8163-03-80 08:35:0029[facility]annCHEM QVNTK2037-26-92 08:35:009.77 [facility]CHE[facility] PVQSQ3481-11-27 08:35:03681Klluwgle HermannCHEM PANEL 2020-07-13 08:35:003.4[facility]annCHEM SOTUQ5250-22-38 08:35:0097[facility]annCHEM AKASL8099-58-10 08:35:0031[facility]annCHEM LBNVP8618-46-21 08:35:008.8[facility]annCHEM KCQDN8542-31-30 08:35:008.4[facility]annCHEM NBRCN8762-75-69 08:35:005[facility]annB[facility] OSUIFH4348-19-66 00:15:00Light Yellow (07/12/20 7:15 PM)[facility] HGHMXA2858-45-78 00:15:00Clear (07/12/20 7:15 PM)[facility] UWUNZK2056-19-59 00:15:00Colorless (07/12/20 7:15 PM)[facility] ADLVFG6695-07-72 00:15:08014Keonypld HermannBODY YYOIRZ5988-72-48 00:15:74041Eupbwmto [facility]annB[facility] JKLXLL8246-02-83 00:15:0027[facility] YRHUHJ8429-15-22 00:15:0015[facility] MQSOTE6413-04-88 00:15:0052[facility] UZLFTN5746-87-70 00:15:003 [facility] YSNWPY8996-83-45 00:15:00Few (07/12/20 7:15 PM)[facility] DOFWGD1113-94-93 00:15:00See Note 4(07/12/20 7:15 PM)[facility] BODY CXXDEF1539-69-85 00:15:00[place] (07/12/20 7:15 PM)[facility] HAYONS1573-92-98 00:15:00Light Yellow (07/12/20 7:15 PM)[facility] ACDZSB1585-04-46 00:15:00Clear (07/12/20 7:15 PM)[facility] FLUIDS 2020-07-13 00:15:00Colorless (07/12/20 7:15 PM)[facility] FLUIDS 2020-07-13 00:15:10556Osfbjuey [facility]annB[facility] JTURIB0458-06-97 00:15:99309Jalurtfs [facility] FDIXUP6962-86-97 00:15:0027[facility] SDDHQY6930-40-84 00:15:0015[facility] KHNKYR2320-38-06 00:15:0052[facility] BDJIBP5821-98-99 00:15:003[facility] LNGSWA3747-62-10 00:15:00Few (07/12/20 7:15 PM)[facility] QQSVWZ6563-43-92 00:15:00See Note 4(07/12/20 7:15 PM)[facility] UWIHPJ6469-37-94 00:15:00[place] (07/12/20 7:15 PM)[facility] OyjubxpLBVKDHLHYS4313-53-52 09:50:0074.0[facility] RERWYUULSR3045-43-43 09:50:0014.8[facility] CxfbirdSMWYTRYQSQ4080-80-27 09:50:00 7.1[facility] FommfwzATVTFXVKMK0466-71-97 09:50:003.5[facility] HermannHEMATOLOGY 2020-07-12 09:50:000.6[facility] ZvrpxhqCJAPNSKFFQ2078-52-63 09:50:004.9[facility] ObomssxOVNZYNBXCC9202-19-50 09:50:001.0[facility] ZvcxfutNTVPDVASPU7548-81-49 09:50:000.5[facility] OczhnmuVDUYFVXMNG9081-92-52 09:50:000.2[facility] RKIHEBRCOL6155-80-36 09:50:006.7[facility] RfuntfbKZXFVFNGAQ0825-20-17 09:50:00 2.86[facility] IijfkapUVPNTLRBKT6774-82-03 09:50:008.3[facility] HermannHEMATOLOGY 2020-07-12 09:50:0024.4[facility] NcpmpskYSGJTQYGIT9900-54-72 09:50:0085.1[facility] NwyggnuCWMWYHGRBU8035-06-58 09:50:00 Test Item Value Reference Range Interpretation Comments MCH (test code = MCH) 29.0 pg 27.0-31.0 [facility] XegzfktOPBJMTLYSS8826-59-14 09:50:0034.1[facility] HermannHEMATOLOGY 2020-07-12 09:50:0014.1[facility] JkyazndVUORFAFPLB2765-09-41 09:50:66508Lyaciijb LlskhbvETPYWQBUHC2036-44-95 09:50:006.6[facility] LjvckakTXINLJVIPC1230-48-03 09:50:0013.1[facility] FviwbbhSIXLNUMMVO4628-13-42 09:50:0074.0[facility] KLPXRGXHCE4461-22-47 09:50:0014.8[facility] KgivrkvHIDRJXPJBL6535-51-23 09:50:00 7.1[facility] RcgyjbsATBQBIQMZB2830-78-98 09:50:003.5[facility] HermannHEMATOLOGY 2020-07-12 09:50:000.6[facility] QahqgfrUSZZWPEISU9843-26-29 09:50:004.9[facility] AbqeohbKHMFXWTSST2434-47-86 09:50:001.0[facility] UgmaikoZNBKKBTDCT9628-47-46 09:50:000.5[facility] RkwijkoCYLREZKVCG0181-75-81 09:50:000.2[facility] RYXGZFUJCM3084-91-01 09:50:006.7[facility] MywrqvlFZZCUSRARK3629-32-58 09:50:00 2.86[facility] LqhoyhpOCNFLXCVFT3754-88-23 09:50:008.3[facility] HermannHEMATOLOGY 2020-07-12 09:50:0024.4[facility] OpkcgbiILUEOBQGKU0912-66-78 09:50:0085.1[facility] EmxhitzLIPLHPRUEO4998-64-96 09:50:00 Test Item Value Reference Range Interpretation Comments MCH (test code = MCH) 29.0 pg 27.0-31.0 [facility] MgsyfinVHVLCMYVGV2120-84-17 09:50:0034.1[facility] HermannHEMATOLOGY 2020-07-12 09:50:0014.1[facility] KvnjbasZHNFFJNEIJ8591-67-16 09:50:23138Ruloyxjl IhpjocrEWUKARQNFA8552-16-87 09:50:006.6[facility] EdbdrpvYHSHSRUSXA3534-69-79 09:50:0013.1[facility]annB[facility] NNASQK5206-79-22 00:50:00Light Yellow (07/11/20 7:50 PM)[facility]annB[facility] VVXFJB6986-53-83 00:50:00Slight Cloudy (07/11/20 7:50 PM)[facility] LCECMJ9939-31-03 00:50:00Colorless (07/11/20 7:50 PM)[facility] VBJFUG9492-29-34 00:50:46563Swrkbbkl [facility] FLUIDS 2020-07-12 00:50:0079[facility]annB[facility] ILSNBX9169-10-63 00:50:0053[facility]annB[facility] JJWKXP3863-32-49 00:50:0010[facility]annB[facility] UOGESX5930-69-39 00:50:0033[facility] WMSCKW0684-65-42 00:50:003[facility] BGKUKE1976-80-13 00:50:001[facility] XDAYCH7584-93-62 00:50:00[place] (07/11/20 7:50 PM)[facility] PBCBHV6770-53-88 00:50:00Light Yellow (07/11/20 7:50 PM)[facility] RCVPLH3700-91-02 00:50:00Slight Cloudy (07/11/20 7:50 PM)[facility] NICWSI7958-52-08 00:50:00Colorless (07/11/20 7:50 PM)[facility] KMIJVV4525-47-92 00:50:35198Vyhudczz [facility] JIQOVW3511-32-87 00:50:0079[facility] RTVLJZ7182-97-72 00:50:0053[facility] UBTNZD0896-74-87 00:50:0010[facility] POWRFT1276-88-62 00:50:0033[facility] YOWESW6870-89-39 00:50:003 [facility] GJETDR6047-66-08 00:50:001[facility]annB[facility] FLUIDS 2020-07-12 00:50:00[place] (07/11/20 7:50 PM)[facility] KbrqomdTVCJDOOROD8621-74-99 08:20:006.2[facility] NrdtvmlLCDLGDKZBW9079-67-08 08:20:002.74[facility] JEQCWXHXYT5033-69-92 08:20:008.0[facility] RcrpxouESWLCVEZFX2909-57-03 08:20:00 23.1[facility] PlbitkeAFRCYQKIEL5022-45-12 08:20:0084.4[facility] HermannHEMATOLOGY 2020-07-11 08:20:00 Test Item Value Reference Range Interpretation Comments MCH (test code = MCH) 29.2 pg 27.0-31.0 [facility] VagtbzqZNCZIWPMGE6235-81-27 08:20:0034.7[facility]annHEMATOLOGY 2020-07-11 08:20:0013.9[facility] XpkbpwpOACGOLNWEX0600-42-93 08:20:92018Fckgxvou SpadvdoNWKYBCFEQH1405-17-52 08:20:006.8[facility] OcyhtyfUSKCSEJFCC0804-39-51 08:20:0074.0[facility] ZzmykooDPLQYNYIEK6306-23-62 08:20:0013.2[facility] ZXFQCTXSZJ9547-81-97 08:20:009.1[facility] CptqqotDOURBZPXHU8957-78-70 08:20:003.2 [facility] ZtzcqxvGGSMONWNVY0186-47-45 08:20:000.5[facility]annHE[facility]OLOGY 2020-07-11 08:20:004.6[facility] RbtihhxGQNRBPLCTL7775-26-65 08:20:000.8[facility] BqucmgsJEBRINMWKU3908-89-36 08:20:000.6[facility] YcbncefKUYDMNOCNL6685-40-95 08:20:000.2[facility] UvmiagbEAQXOGMZMD2990-88-33 08:20:006.2[facility] LGLRJEWXQZ3484-00-70 08:20:002.74[facility] KbwloevNAIYHIBPQT4778-88-72 08:20:00 8.0[facility] DmhwwpnCHRIGVUZZQ5766-09-49 08:20:0023.1[facility]annHE[facility]Y 2020-07-11 08:20:0084.4[facility] EjixxtiQEUAWOCHKQ2861-96-55 08:20:00 Test Item Value Reference Range Interpretation Comments MCH (test code = MCH) 29.2 pg 27.0-31.0 [facility] QacuxxyZAEUWQGFNC7164-29-55 08:20:0034.7[facility]annHEMATOLOGY 2020-07-11 08:20:0013.9[facility] CebkzuiYNJGXQESZH9157-23-20 08:20:83908Lhjjmcvb HqvlqpmAUFHVNPJRO9896-91-08 08:20:006.8[facility] SrqwrffOQIBDGUWRC6561-40-11 08:20:0074.0[facility] VpncaiaVHMWZVOSER6885-07-59 08:20:0013.2[facility] HFTVXNWPOC3097-25-11 08:20:009.1[facility] WscxraaTQUIIRRXNL7342-58-46 08:20:003.2 [facility] XnhwbmsXYBANDYKSQ0161-06-98 08:20:000.5[facility]annHEMATOLOGY 2020-07-11 08:20:004.6[facility] OeohllaUHMUPRQGQY9538-02-95 08:20:000.8[facility] HpkjyqmUTUMJFYWYV5941-26-74 08:20:000.6[facility] LqqrpuyPJJPLOOREO5798-52-53 08:20:000.2[facility] GfmmevyEMKYNFPCIM8608-74-42 14:52:006.6[facility] GSHOSOBKDZ3299-21-09 14:52:002.76[facility] YnjijnrENLIGGUOWL8847-44-00 14:52:00 8.1[facility] LrakpjwKAJOMINGXY1855-36-32 14:52:0023.3[facility]annHEMATOLOGY 2020-07-10 14:52:0084.2[facility] AaxkhmdQRVYZFODEV4017-61-91 14:52:00 Test Item Value Reference Range Interpretation Comments MCH (test code = MCH) 29.3 pg 27.0-31.0 [facility] AdwziqgCJLGKIUXLW8036-49-54 14:52:0034.8[facility]annHEMATOLOGY 2020-07-10 14:52:0013.7[facility] HwvcouqHPRUXWCVQP6272-78-91 14:52:86174Caewpvyn HvxntvfKXEPTHOHYL9840-79-76 14:52:006.6[facility] XrcikqtSJXXMSQMJM2729-64-13 14:52:00Normal (07/10/20 9:52 AM)[facility] QbdhthcXBPNLGJLNA7270-20-39 14:52:00 Normal (07/10/20 9:52 AM)[facility] WkdqdglGMIDSGCFIL2793-88-70 14:52:0076.0 [facility] EqjlxopOUYUWMUPXI5459-47-18 14:52:0011.5[facility]annHEMATOLOGY 2020-07-10 14:52:008.9[facility] GbqkktaJFEQYHSCZY0035-68-18 14:52:003.1[facility] EddninuKUYXRWSQJC2643-47-69 14:52:000.5[facility] VtghwnmZZHYMAJIAF2531-91-61 14:52:005.1[facility] UlwtnxpTMOEEIYCPU3730-63-60 14:52:000.8[facility] CSFVMNCINP2476-96-82 14:52:000.6[facility] NtnidsoKVCJAVWUYM3858-28-42 14:52:000.2 [facility] UjyfquhVFBBWIHRRP4119-82-65 14:52:006.6[facility]annHEMATOLOGY 2020-07-10 14:52:002.76[facility] CjuynydIRUFWHEECN2106-64-95 14:52:008.1[facility] RekrrbqKUVOLSNLRO7161-54-65 14:52:0023.3[facility] FtkhgvkCJUQOZKTOY0375-06-03 14:52:0084.2[facility] RlksujxQPFZVPYRIX5446-22-24 14:52:00 Test Item Value Reference Range Interpretation Comments MCH (test code = MCH) 29.3 pg 27.0-31.0 [facility] YmwfdxvRBVWUHBOSY9745-78-70 14:52:0034.8[facility]annHEMATOLOGY 2020-07-10 14:52:0013.7[facility] GukxhlqFVZTASHTAR6237-15-81 14:52:20989Cketxwgy XnhqtlhJSRMLIRQLK1439-44-22 14:52:006.6[facility] HlfxhaiYZUXFZDNBO0903-34-36 14:52:00Normal (07/10/20 9:52 AM)[facility] PxctaqlIXRJPVXXYL5104-87-88 14:52:00 Normal (07/10/20 9:52 AM)[facility] EypnoiqFJDGODFZLU7895-65-74 14:52:0076.0 [facility] EuqtwbsWSCFCTWVFB6912-24-87 14:52:0011.5[facility]annHEMATOLOGY 2020-07-10 14:52:008.9[facility] FjquvtqBPLKALWCTP7498-57-27 14:52:003.1[facility] OcyuapwLJZNFEHNEW8860-98-60 14:52:000.5[facility] AghxogkLBBGJMMIBD7448-74-09 14:52:005.1[facility] MtyldebTKCTMXETQJ7100-88-74 14:52:000.8[facility] PYOKTREFMA4047-42-20 14:52:000.6[facility] HmddfqdSWPCQVVCFP3948-83-48 14:52:000.2 [facility]annCHEM AIUOV5470-12-04 14:49:005.2[facility]annCHEM PANEL 2020-07-09 14:49:001.5[facility]annCHEM XOAOK7836-41-62 14:49:0013[facility]annCHEM VLOEW5297-70-20 14:49:0011[facility]annCHEM MZHON3747-32-06 14:49:0075[facility]annCHEM WCBCU1362-92-51 14:49:000.4[facility]annCHEM YLCFR0949-29-64 14:49:00 Test Item Value Reference Range Interpretation Comments B/C Ratio (test code = B/C Ratio) 4 04-02 [facility]annCHE[facility] YWRHB0772-13-14 14:49:003.7[facility]annCHEM PANEL 2020-07-09 14:49:00 Test Item Value Reference Range Interpretation Comments A/G Ratio (test code = A/G Ratio) 0.4 1 0.7-1.6 [facility]annCHE[facility] MXREB0868-80-39 14:49:004.1[facility]annCHEM PANEL 2020-07-09 14:49:005.2[facility]annCHEM GURYJ8215-76-62 14:49:001.5[facility]annCHEM UONJO7768-73-98 14:49:0013[facility]annCHEM IAQEN0142-66-67 14:49:0011[facility]annCHEM PMAVK3702-84-25 14:49:0075[facility]annCHEM SQCNT8793-48-60 14:49:000.4[facility]annCHEM QMTLG9222-55-89 14:49:00 Test Item Value Reference Range Interpretation Comments B/C Ratio (test code = B/C Ratio) 4 04-02 [facility]annCHE[facility] XFPOL6876-20-88 14:49:003.7[facility]annCHEM PANEL 2020-07-09 14:49:00 Test Item Value Reference Range Interpretation Comments A/G Ratio (test code = A/G Ratio) 0.4 1 0.7-1.6 [facility]ann[facility] MNZHG0733-74-14 14:49:004.1[facility] HermannTOXICOLOGY 2020-07-09 09:57:0015.9[facility] PkmlfqkKWVLTGHQTJ4831-66-57 09:57:0015.9[facility] NnazgnyQHCGYOUMKE5860-83-08 18:59:0015.4[facility] HyzdzkjRVXOMMGNYX4334-04-65 18:59:0015.4[facility]annBLOOD BANK VIXOQYL9165-02-59 11:40:00Negative (07/06/20 6:40 AM)[facility]annBL[facility] FNVRTDZ6642-50-60 11:40:00Negative (07/06/20 6:40 AM)[facility] HermannCARDIAC YXVFWNM9559-28-90 11:07:00<0.02 [facility] HermannCHEM XFGRM4331-94-93 11:07:001.8[facility]annCHEM PANEL 2020-07-06 11:07:005.3[facility]annCHEM PNYRT6984-16-78 11:07:0048[facility]annCHEM VGEUC4378-47-58 11:07:005.3[facility]annCHEM LKBFN8251-26-67 11:07:001.6[facility]annCHEM VJPGG5562-85-02 11:07:003.7[facility]annCHE[facility] VOSUL1032-69-68 11:07:00 Test Item Value Reference Range Interpretation Comments A/G Ratio (test code = A/G Ratio) 0.4 1 0.7-1.6 [facility] HermannCHEM BDCBH0856-48-05 11:07:0012[facility]annCHEM PANEL 2020-07-06 11:07:0013[facility]annCHE[facility] YHUXX4137-76-47 11:07:0067[facility]CHE[facility] TSPIL1417-55-63 11:07:000.6[facility]annCHEM DPCKU2142-96-47 11:07:00<0.1[facility]annCHEM RDARH3774-77-46 11:07:000.6[facility] RMFURKKTDT5919-82-03 11:07:00 Test Item Value Reference Range Interpretation Comments PTT (test code = PTT) 40.6 s 22.9-35.8 [facility] ZgwbiijSELNVRSHDS5922-31-36 11:07:00 Test Item Value Reference Range Interpretation Comments PT (test code = PT) 14.0 s 12.0-14.7 [facility] MxqvuiaZSRSLSLSTQ3892-75-19 11:07:00 Test Item Value Reference Range Interpretation Comments INR (test code = INR) 1.08 1 0.85-1.17 [facility]annCARDIAC ANXLDWY9403-42-97 11:07:00<0.02[facility]annCHEM KQYTF4915-04-15 11:07:001.8[facility]annCHEM HUGXB0618-77-55 11:07:005.3 [facility]annCHE[facility] OROFI4554-01-64 11:07:0048[facility]annCHEM PANEL 2020-07-06 11:07:005.3[facility]annCHEM EAHIT9396-45-45 11:07:001.6[facility]annCHE[facility] KFEFS5418-45-75 11:07:003.7[facility]annCHEM ODYMO1555-88-98 11:07:00 Test Item Value Reference Range Interpretation Comments A/G Ratio (test code = A/G Ratio) 0.4 1 0.7-1.6 [facility]CHE[facility] XGVNV8781-73-49 11:07:0012[facility]annCHEM PANEL 2020-07-06 11:07:0013[facility]annCHEM XUBSP8655-62-09 11:07:0067[facility]annCHEM DHKQW0457-92-32 11:07:000.6[facility]annCHE[facility] SWHNS9448-34-37 11:07:00<0.1[facility]annCHE[facility] YHETX2484-04-74 11:07:000.6[facility] JEVWWMKEFQ2840-35-84 11:07:00 Test Item Value Reference Range Interpretation Comments PTT (test code = PTT) 40.6 s 22.9-35.8 [facility]stYDBHCJAILL3828-50-14 11:07:00 Test Item Value Reference Range Interpretation Comments PT (test code = PT) 14.0 s 12.0-14.7 [facility] EofylikZBRUGUBNRH6844-04-82 11:07:00 Test Item Value Reference Range Interpretation Comments INR (test code = INR) 1.08 1 0.85-1.17 [facility] DVFVW1838-89-61 13:56:0097[facility]annCHEM PANEL 2020-05-21 13:56:0041[facility]annCHEM KHGRL2388-04-24 13:56:0010.50[facility]annCHEM HAIWL1708-08-06 13:56:86312Uqouognz HermannCHEM WTYPL1272-69-33 13:56:003.2[facility]annCHE[facility] GCYXI9517-81-12 13:56:0094[facility]annCHE[facility] FATIF3574-17-25 13:56:0028[facility]annCHEM AIRCU6935-09-89 13:56:009.5 [facility]CHE[facility] IFSRE8184-89-96 13:56:0014.2[facility]annCHEM PANEL 2020-05-21 13:56:005[facility]annCHE[facility] JRXOP6613-54-48 13:56:005.4[facility]annCHE[facility] XGFKE0534-78-78 13:56:005[facility]annCHE[facility] MNTBL8278-13-58 13:56:005.4[facility]annCHEM ZPNJO1701-71-74 13:56:002.3[facility]annCHEM GQLRZ0042-36-57 13:56:0016[facility]annCHEM BAJVB2963-46-33 13:56:0026 [facility]CHE[facility] FNJDN0353-48-00 13:56:0082[facility]annCHEM PANEL 2020-05-21 13:56:000.4[facility]annCHEM UEHUF7196-54-58 13:56:000.1[facility]annCHEM UARWH8881-87-23 13:56:000.3[facility]annCHEM EGLQA3853-76-79 13:56:003.1[facility]annCHEM SQVOU0718-40-02 13:56:00 Test Item Value Reference Range Interpretation Comments A/G Ratio (test code = A/G Ratio) 0.7 1 0.7-1.6 [facility]annCHE[facility] SKDME8210-14-88 13:56:0041[facility]annHEMATOLOGY 2020-05-21 13:56:005.3[facility] HxubfjnCGTVEBQWCA7787-10-31 13:56:002.56[facility] UyyyetjPFQITKVANT8792-94-26 13:56:007.6[facility] VgnjpesLAMAYPGDFX3829-91-33 13:56:0021.8[facility] ZihovqqMDZMAOHTQB0759-87-52 13:56:0085.2[facility] QSJUQOVBRI0886-29-15 13:56:00 Test Item Value Reference Range Interpretation Comments MCH (test code = MCH) 29.6 pg 27.0-31.0 [facility] OesumvbCQBGDAOUYA2493-56-98 13:56:0034.8[facility] HermannHEMATOLOGY 2020-05-21 13:56:0013.9[facility] YzxbevvMURSXCMRTA8035-72-22 13:56:47259Uanezhyz ZesaflaXUUPTUUMPR4092-67-35 13:56:007.1[facility] LczzfenOSRRGITEMP1779-02-42 13:56:0067.4[facility] DcjlqxzAOWIYJDCRQ5346-06-11 13:56:0015.2[facility] UIKZPDAVWC3693-02-84 13:56:008.6[facility] LfhcaqoNFSRKZVMCG2468-48-14 13:56:007.8 [facility] UswwtpmLNIRHOXXGG1692-58-44 13:56:001.0[facility]annHEMATOLOGY 2020-05-21 13:56:003.6[facility] NqjqfrfEEJZWWJHTP0762-97-39 13:56:000.8[facility] TfcjdsnYNIHKUDXHQ8173-02-05 13:56:000.5[facility] YstgwgcTBCXELSXBE8943-32-78 13:56:000.4[facility] YssrnvyPWMCESBVYZ4231-51-06 13:56:000.1[facility]annCHEM XDLKC4975-19-44 13:56:002.3[facility]annCHEM BHEGQ9023-47-39 13:56:0016 [facility]annCHEM JTEDP8817-43-70 13:56:0026[facility]annCHEM PANEL 2020-05-21 13:56:0082[facility]annCHEM SRHFU5628-14-34 13:56:000.4[facility]annCHEM MKAKO6914-46-72 13:56:000.1[facility]annCHEM PKOVL3989-51-42 13:56:000.3[facility]annCHEM QVXPP2024-09-66 13:56:003.1[facility]annCHEM FFVMF1966-80-39 13:56:00 Test Item Value Reference Range Interpretation Comments A/G Ratio (test code = A/G Ratio) 0.7 1 0.7-1.6 [facility]annCHE[facility] VJCQH6647-04-45 13:56:0041[facility]annHEMATOLOGY 2020-05-21 13:56:005.3[facility] OauyjjlVAKXSOZDBX4531-41-87 13:56:002.56[facility] UokipqiBEPRHGKIHP3546-51-45 13:56:007.6[facility] ZdypleeDPCWNQKDOB3687-82-88 13:56:0021.8[facility] SvdrlzuJLEAIRXIDC5707-05-34 13:56:0085.2[facility] MEMXCCHGST6749-26-44 13:56:00 Test Item Value Reference Range Interpretation Comments MCH (test code = MCH) 29.6 pg 27.0-31.0 [facility] BlimpirPCAYAHNRRW0860-50-75 13:56:0034.8[facility] HermannHEMATOLOGY 2020-05-21 13:56:0013.9[facility] HamvudkJBIQKPNFWN2545-57-47 13:56:10838Koromaxn WytxlriIFLLRTDRMG9708-29-80 13:56:007.1[facility] QyebbdaDHPLKEYLWZ3447-34-53 13:56:0067.4[facility] GcluuurTMEUGZHSJI6393-70-55 13:56:0015.2[facility] AEJFRNCNFI4605-98-96 13:56:008.6[facility] NzelqcxVRCLCJQUIF8176-62-99 13:56:007.8 [facility] QghelmmJRPVZCFMKH3228-77-39 13:56:001.0[facility] HermannHEMATOLOGY 2020-05-21 13:56:003.6[facility] LcljzldRKMIOLRAKQ2101-63-15 13:56:000.8[facility] ImhlhrnNOVFNUBLQZ6741-48-80 13:56:000.5[facility] XrzhgkdRVBERICOFX0166-06-42 13:56:000.4[facility] UkuvktmOSVSFOPTTC1254-78-40 13:56:000.1[facility]annCHEM FRQCE9851-10-88 13:56:0097[facility]annCHEM GJDXG6416-79-67 13:56:0041 [facility]CHE[facility] ISPKX2600-45-33 13:56:0010.50[facility]annCHEM PANEL 2020-05-21 13:56:66032Pzfxnbad HermannCHEM RGZUH5872-01-44 13:56:003.2[facility]annCHEM VYZSH6081-29-26 13:56:0094[facility]annCHEM PQJKR0045-16-04 13:56:0028[facility]annCHEM QULQG3335-91-09 13:56:009.5[facility]annCHEM OBSPW0479-45-92 13:56:0014.2[facility] HermannBLOOD BANK TYKDEMO7180-32-13 06:28:00Negative (03/23/20 1:28 AM)[facility] BANK BJWLVXA0585-45-40 06:28:00Negative (03/23/20 1:28 AM)[facility]BL[facility] BANK UPBFVAK0726-14-72 06:23:00Product available 2(03/23/20 1:23 AM)[facility] BANK RESULTS 2020-03-23 06:23:00Product available 2(03/23/20 1:23 AM)[facility]annBODY UYCDZV8117-63-76 06:08:95853926Ejaohdmc HermannBODY MZQFGZ1330-53-41 06:08:00 1316[facility]annB[facility] OUYJSI4542-71-97 06:08:0037[facility]annB[facility] FLUIDS 2020-03-23 06:08:004[facility]annB[facility] MHWHSH4914-55-20 06:08:0054[facility]annBODY OVHHUB9693-47-74 06:08:003[facility]annB[facility] AJIAEQ4232-94-06 06:08:002[facility]annB[facility] VGJSGX1976-47-26 06:08:00Bloody *ABN*(03/23/20 1:08 AM)[facility]ann[facility] KHSICD0209-44-48 06:08:00Red *ABN*(03/23/20 1:08 AM) [facility]annB[facility] YKJRII1589-17-31 06:08:00Yellow *ABN*(03/23/20 1:08 AM) [facility]annB[facility] TFTEGN8572-19-81 06:08:00[place] (03/23/20 1:08 AM)[facility]annCHEM SEBFP7014-19-36 06:08:0098[facility]annCHEM GERWL7770-04-64 06:08:0081[facility]annCHEM OUGNC9200-32-69 06:08:0014.40[facility]annCHEM THTTV2696-76-93 06:08:35384Ntdeaokl HermannCHEM RJAGX8028-15-58 06:08:004.8 [facility]annCHEM XELOA5201-79-47 06:08:0090[facility]annCHEM PANEL 2020-03-23 06:08:0027[facility]annCHEM LEHDQ9880-15-66 06:08:008.7[facility]annCHEM GEKAQ8092-78-67 06:08:005.7[facility]annCHEM SYHYM0472-63-88 06:08:002.5[facility]annCHEM YIBOX5597-24-14 06:08:0032[facility]annCHEM XHFAN5507-13-08 06:08:0036[facility]annCHE[facility] FYTZH2695-89-41 06:08:72271 [facility]CHE[facility] AZUUB1579-81-11 06:08:000.5[facility]annCHEM PANEL 2020-03-23 06:08:0016.8[facility]annCHEM OLIOJ4814-04-27 06:08:00 Test Item Value Reference Range Interpretation Comments B/C Ratio (test code = B/C Ratio) 6 1 6-25 [facility]CHE[facility] ZSSRB3551-55-46 06:08:003.2[facility]annCHEM PANEL 2020-03-23 06:08:00 Test Item Value Reference Range Interpretation Comments A/G Ratio (test code = A/G Ratio) 0.8 1 0.7-1.6 [facility]annCHE[facility] DUIJB6480-98-08 06:08:003[facility]annCHEM PANEL 2020-03-23 06:08:000.6[facility] AgyvptsOQURYREHGF6518-87-55 06:08:0011.5[facility] JflznsiDSSCTQEIKA5419-38-05 06:08:002.12[facility] ZxzuwsxWOZPQXDUNA5764-56-80 06:08:006.1[facility] JcnjuquGMNCLIUUVR6470-86-70 06:08:0018.4[facility] QNBDCWQSQA3806-22-30 06:08:0086.5[facility] KnfgolqZTQPGKKLIG7905-67-52 06:08:00 Test Item Value Reference Range Interpretation Comments MCH (test code = MCH) 28.6 pg 27.0-31.0 [facility] QbicefwDKORTLMCJD6173-83-19 06:08:0033.1[facility] HermannHEMATOLOGY 2020-03-23 06:08:0015.9[facility] NyrlpwrOJBHBLQHVN8377-83-44 06:08:76349Tdgvpfwd HkjawhbDWDZEHFJNT7405-07-82 06:08:006.8[facility] JxtxgojOZMIYRVWXB7582-11-98 06:08:00 Test Item Value Reference Range Interpretation Comments PT (test code = PT) 13.9 s 12.0-14.7 [facility] OrfkzenJKQBULIVRH5502-89-60 06:08:00 Test Item Value Reference Range Interpretation Comments INR (test code = INR) 1.07 1 0.85-1.17 [facility]FudhurjNHROSUXVHT7116-55-81 06:08:00Normal (03/23/20 1:08 AM)[facility] CenterFmtfozyZKTORIVYVL6739-87-66 06:08:00Normal (03/23/20 1:08 AM)[facility] GSCFQVCSJD6054-58-56 06:08:0080.9[facility] HgzwdprPXEJADIFOM1011-44-65 06:08:00 9.1[facility] IeyoikcJBHLZRBNOZ2718-88-89 06:08:007.3[facility] HermannHEMATOLOGY 2020-03-23 06:08:002.0[facility] NwenwwrUAWXJUEKID6023-71-22 06:08:000.7[facility] DkkwtlxWKPJIYJZDH0647-79-56 06:08:009.3[facility] NrzxueeIUQFLXZJTV9555-97-41 06:08:001.0[facility] NrgugbnIWDITZDBDB8999-36-61 06:08:000.8[facility] IKTVASHJXG8940-60-58 06:08:000.2[facility] WotfrgsJNUVRTYVJX4043-95-55 06:08:000.1 [facility] QkzaptkXHRGVKIATM5513-49-68 06:08:002+ *ABN*(03/23/20 1:08 AM)[facility] TgmsvlvUGNTVAVTSR6448-37-56 06:08:001+ *ABN*(03/23/20 1:08 AM)[facility] DNBHCLOZEL4946-73-88 06:08:001+ *ABN*(03/23/20 1:08 AM)[facility]annHEMATOLOGY 2020-03-23 06:08:00Rare *ABN*(03/23/20 1:08 AM)[facility] HermannBODY FLUIDS 2020-03-23 06:08:63957996Vqwqbsef HermannBODY FOKCKE5867-02-36 06:08:473695 [facility]annB[facility] PANLHN8610-69-37 06:08:0037[facility]annBODY FLUIDS 2020-03-23 06:08:004[facility]annB[facility] DOFSJB4024-56-54 06:08:0054[facility]annB[facility] ZWMFPI8332-53-27 06:08:003[facility]annB[facility] POWFWC5073-07-83 06:08:002[facility]annB[facility] NTEZAJ1723-76-42 06:08:00Bloody *ABN*(03/23/20 1:08 AM)[facility]annB[facility] ZHCCMG9922-93-53 06:08:00Red *ABN*(03/23/20 1:08 AM) [facility] BADWVY6710-85-20 06:08:00Yellow *ABN*(03/23/20 1:08 AM) [facility] CQEWTY5756-07-90 06:08:00[place] (03/23/20 1:08 AM)[facility]annCHEM SLQTW7727-68-22 06:08:0098[facility]annCHEM LTPYL5509-16-16 06:08:0081[facility]annCHEM LOPHG5572-94-18 06:08:0014.40[facility] HermannCHEM CGKRI0332-56-04 06:08:70583Ckquasyj HermannCHEM LXWEY8304-24-50 06:08:004.8 [facility]annCHEM YEVSX7731-05-31 06:08:0090[facility]annCHEM PANEL 2020-03-23 06:08:0027[facility]annCHEM EVIDX8346-92-79 06:08:008.7[facility]annCHEM GBQLJ1943-33-53 06:08:005.7[facility]annCHEM CZKUG2182-30-48 06:08:002.5[facility]annCHEM VGEQE5074-58-22 06:08:0032[facility]annCHEM ECMBL5733-08-20 06:08:0036[facility]annCHEM OIQOK7089-28-30 06:08:97645 [facility]annCHEM RQEGW7642-10-71 06:08:000.5[facility]annCHEM PANEL 2020-03-23 06:08:0016.8[facility]annCHEM PRPMT8454-99-89 06:08:00 Test Item Value Reference Range Interpretation Comments B/C Ratio (test code = B/C Ratio) 6 1 -25 [facility]annCHEM BUYSA2433-95-71 06:08:003.2[facility]annCHEM PANEL 2020-03-23 06:08:00 Test Item Value Reference Range Interpretation Comments A/G Ratio (test code = A/G Ratio) 0.8 1 0.7-1.6 [facility]annCHEM XETCJ8875-70-60 06:08:003[facility]annCHEM PANEL 2020-03-23 06:08:000.6[facility] FpihnulFYUUOLWHUV6045-91-07 06:08:0011.5[facility] XrbpxgkRVWFVZFUMK1842-32-57 06:08:002.12[facility] TkkthvwHLYGPHYYMQ2101-25-32 06:08:006.1[facility] VyavhpyKKLCLCOMDO8433-71-17 06:08:0018.4[facility] CLOBUKTDRT3009-50-23 06:08:0086.5[facility] NledxjfBKBMYJBXWQ4315-31-63 06:08:00 Test Item Value Reference Range Interpretation Comments MCH (test code = MCH) 28.6 pg 27.0-31.0 [facility] TiffdnhFATZKKOPNU3907-32-20 06:08:0033.1[facility] HermannHEMATOLOGY 2020-03-23 06:08:0015.9[facility] KozaqqnTYJYVIWLXL2133-72-08 06:08:26320Vwbfmmft GcjistaTXDBFCYJBD8024-08-52 06:08:006.8[facility] BdutoiyCNELXRUAOF4387-91-41 06:08:00 Test Item Value Reference Range Interpretation Comments PT (test code = PT) 13.9 s 12.0-14.7 [facility] XnssygwOIADFJEHSZ5271-50-29 06:08:00 Test Item Value Reference Range Interpretation Comments INR (test code = INR) 1.07 1 0.85-1.17 [facility] BufqczuKCJTRXPUFQ5173-95-28 06:08:00Normal (03/23/20 1:08 AM)[facility] YugbtkhPLAUTZOZJW5344-01-56 06:08:00Normal (03/23/20 1:08 AM)[facility] RSNYRJKSWW1267-80-94 06:08:0080.9[facility] KezynfuBCVBDBLNJQ9168-46-24 06:08:00 9.1[facility] GahkpwqHMHAOTKDLO1371-36-39 06:08:007.3[facility]annHEMATOLOGY 2020-03-23 06:08:002.0[facility] KtuyfcrKRYBFCGSGS1733-62-67 06:08:000.7[facility] JelcrloZGDSSHFSVO1843-65-67 06:08:009.3[facility] QiihokpPFSIGYFHGD9207-11-03 06:08:001.0[facility] BuzmhboVADBXWDQBQ4105-46-43 06:08:000.8[facility] SQSTVMYRGV9679-82-18 06:08:000.2[facility] LtfzyqiDMKBNFTJAJ1656-95-27 06:08:000.1 [facility] TgqmfeiRIVFPVKLDG8763-44-04 06:08:002+ *ABN*(03/23/20 1:08 AM)[facility] FktuwlvZNAEIDWUOE4490-88-86 06:08:001+ *ABN*(03/23/20 1:08 AM)[facility] YZPITIJDSY3990-57-04 06:08:001+ *ABN*(03/23/20 1:08 AM)[facility]annHEMATOLOGY 2020-03-23 06:08:00Rare *ABN*(03/23/20 1:08 AM)[facility]annCHEM PANEL 2020-02-03 21:27:0085[facility] HermannCHEM NKCCG9401-90-68 21:27:0058[facility]annCHEM ARZVZ5867-54-21 21:27:0012.00[facility]annCHEM VZIJJ8145-87-12 21:27:27791Rmyfwjbz HermannCHEM ZZOSN6372-60-89 21:27:004.2[facility] HermannCHEM EPIQF6259-18-02 21:27:0092[facility] HermannCHEM EIKRM4468-70-99 21:27:0026 [facility]annCHEM KZMHY0764-15-96 21:27:008.3[facility]annCHEM PANEL 2020-02-03 21:27:005.5[facility] HermannCHEM LBHOH3575-05-34 21:27:002.4[facility]annCHEM RHUQW3231-71-35 21:27:0018[facility]annCHEM UTRBX9374-70-16 21:27:0020[facility]annCHEM YWLRY7871-21-67 21:27:0076[facility]annCHEM KLKUA5976-50-86 21:27:000.3[facility] HermannCHEM LHQSJ8742-93-08 21:27:0015.2 [facility]annCHEM AAVNJ3310-52-43 21:27:00 Test Item Value Reference Range Interpretation Comments B/C Ratio (test code = B/C Ratio) 5 1 6-25 [facility]annCHEM XGQYL5854-03-70 21:27:003.1[facility]annCHEM PANEL 2020-02-03 21:27:00 Test Item Value Reference Range Interpretation Comments A/G Ratio (test code = A/G Ratio) 0.8 1 0.7-1.6 [facility]annCHEM WEBLQ7362-72-37 21:27:004[facility]annHEMATOLOGY 2020-02-03 21:27:008.7[facility] XjkkulqDSUGJZMFNU5412-20-19 21:27:002.94[facility] AgdszvtFCVFBVRMVC4936-95-56 21:27:008.4[facility] RkbzqokOIYOMMKSEG4985-12-77 21:27:0025.0[facility] MhiudoaTTOTPQDLPC8926-64-91 21:27:0084.9[facility] KZKPGRMVJQ4179-06-75 21:27:00 Test Item Value Reference Range Interpretation Comments MCH (test code = MCH) 28.7 pg 27.0-31.0 [facility] IzefoqhCRFIDXFHKQ5105-85-21 21:27:0033.8[facility] HermannHEMATOLOGY 2020-02-03 21:27:0014.4[facility] CdraxdhSAOALQWTMR5865-31-02 21:27:02995Tuwhepor RhyhcxjZCQLCXPAND5725-56-13 21:27:007.6[facility] LwszfhdORCZANSFYV2649-60-12 21:27:007.7[facility] LpycywcSNFDGPXDOD2800-47-79 21:27:000.4[facility] BZZEKAPYJA5657-77-69 21:27:000.3[facility] ZzomfavZIQFAWSWAC5475-95-86 21:27:000.2 [facility] UfsrccbRGWGKZDLVB1373-53-58 21:27:0086.0[facility]annHEMATOLOGY 2020-02-03 21:27:003.0[facility] VjzgiqyMHMCOOHNDQ1561-83-86 21:27:003.0[facility] AztymrgIUEVGNRHRB2699-41-19 21:27:004.0[facility] MpavuewVRNSYGQSEA0351-43-83 21:27:002.0[facility] SxobcgfHIMNJOKCQI4512-54-85 21:27:002.0[facility] WKJELFFQFX7057-50-01 21:27:00Normal (02/03/20 4:27 PM)[facility]annHEMATOLOGY 2020-02-03 21:27:00Normal (02/03/20 4:27 PM)[facility] GfjwotvSJRECWXGWB4983-83-73 21:27:001+ *ABN*(02/03/20 4:27 PM)[facility] HermannCHEM IVRDI0813-61-17 21:27:0085 [facility]annCHEM WQLVC4712-38-77 21:27:0058[facility] HermannCHEM PANEL 2020-02-03 21:27:0012.00[facility] HermannCHEM QCHRQ1518-86-06 21:27:22377Kqqqkryk HermannCHEM GQFNY2945-72-55 21:27:004.2[facility] HermannCHEM FDYZR3862-45-02 21:27:0092[facility] HermannCHEM LDXQA9150-42-25 21:27:0026[facility] HermannCHEM BDFGC7518-02-01 21:27:008.3[facility] HermannCHEM YXCIR2687-99-54 21:27:005.5 [facility]annCHEM BPITY8486-11-91 21:27:002.4[facility] HermannCHEM PANEL 2020-02-03 21:27:0018[facility] HermannCHEM HHRCE6974-97-83 21:27:0020[facility] HermannCHEM SUTWW3773-18-34 21:27:0076[facility] HermannCHEM MRZDO1974-75-90 21:27:000.3[facility] HermannCHEM RYBUG7715-84-02 21:27:0015.2[facility] HermannCHEM ZTCLQ8143-29-20 21:27:00 Test Item Value Reference Range Interpretation Comments B/C Ratio (test code = B/C Ratio) 5 1 6-25 [facility]annCHEM VTVGE0148-50-29 21:27:003.1[facility] HermannCHEM PANEL 2020-02-03 21:27:00 Test Item Value Reference Range Interpretation Comments A/G Ratio (test code = A/G Ratio) 0.8 1 0.7-1.6 [facility]annCHEM MPNUW9620-88-86 21:27:004[facility] HermannHEMATOLOGY 2020-02-03 21:27:008.7[facility] EebvkmcRNKNJMHLIX2596-44-14 21:27:002.94[facility] BnoxxlkKHDCILHLUZ4005-51-32 21:27:008.4[facility] MptshgjBIZGHMDRLL4796-90-91 21:27:0025.0[facility] OlgueelDANSKRJNQK3438-04-43 21:27:0084.9[facility] CSBPERERPQ3374-00-21 21:27:00 Test Item Value Reference Range Interpretation Comments MCH (test code = MCH) 28.7 pg 27.0-31.0 [facility] UgbaftjXPIGQWDVDW5662-80-96 21:27:0033.8[facility] HermannHEMATOLOGY 2020-02-03 21:27:0014.4[facility] VmwdokjLFUPHCRMHR3873-78-06 21:27:48739Bayqvtna GwawpquBSMQWRQGBC6837-60-00 21:27:007.6[facility] WkmxbhsEOPHNFJJKC2280-41-33 21:27:007.7[facility] UeokcalBDOMGMHEAB0777-88-02 21:27:000.4[facility] DXZPOCBPZX0526-03-76 21:27:000.3[facility] SlcwadeSWJZFYZRHC7810-86-82 21:27:000.2 [facility] YmovdbbXJHKOYRBEA6707-90-94 21:27:0086.0[facility]annHEMATOLOGY 2020-02-03 21:27:003.0[facility] FqfuiafNYMEUIWALX7409-31-11 21:27:003.0[facility] TmnfqeiJSSYALWZYE2529-04-82 21:27:004.0[facility] NukrrsuDAIXFRQCSS3213-62-31 21:27:002.0[facility] YknfaxhAMXNALSVAO5109-81-63 21:27:002.0[facility] FKDTLAHPWM9431-24-46 21:27:00Normal (02/03/20 4:27 PM)[facility]annHE[facility]OLOGY 2020-02-03 21:27:00Normal (02/03/20 4:27 PM)[facility] BjzuyoiCNSVOCGSTV4717-24-42 21:27:001+ *ABN*(02/03/20 4:27 PM)[facility] YzukdpfPXRVGZYNOJ5571-85-98 21:14:00 Not Detected (02/03/20 4:14 PM)[facility] KxctblnYZNKTJSCYM4646-83-25 21:14:00Not Detected (02/03/20 4:14 PM)[facility]annB[facility] UBYLGB2374-19-22 18:30:00 Colorless (11/04/19 12:30 PM)[facility] DKZEJJ6414-01-34 18:30:00Clear (11/04/19 12:30 PM)[facility] ZRQBHL5551-70-21 18:30:0011[facility] OJVVRW9634-28-07 18:30:0011[facility] QSVHTV9227-95-23 18:30:0011[facility] EXZVBZ9295-28-35 18:30:0056[facility] SETYLY4220-67-08 18:30:0033[facility] CQVTQP8719-62-10 18:30:00[place] (11/04/19 12:30 PM)[facility] KUKDEO8231-95-27 18:30:00Colorless (11/04/19 12:30 PM)[facility] DWSAWS4040-83-36 18:30:00Clear (11/04/19 12:30 PM)[facility] SKFXBJ3511-34-34 18:30:0011[facility] UHSSBW3424-51-14 18:30:0011[facility] PYGYJT7398-34-13 18:30:0011 [facility] PRZIBF5139-36-84 18:30:0056[facility] FLUIDS 2019-11-04 18:30:0033[facility]ann[facility] GLFGDH8105-07-64 18:30:00[place] (11/04/19 12:30 PM)[facility]annCHEM CUIHS5022-37-68 18:00:25505Oywfsfdx HermannCHEM SOHRZ5009-71-18 18:00:0040[facility]annCHEM PSIBL8340-43-08 18:00:0010.60[facility]annCHEM KYRFZ9419-35-75 18:00:99278Iogqrxag Marlo CHEM OLKPH6511-78-62 18:00:003.8[facility]annCHEM RIRHU6720-73-11 18:00:96282 [facility]annCHE[facility] FXSKS8834-61-16 18:00:0032[facility]annCHEM PANEL 2019-11-04 18:00:009.3[facility]annCHE[facility] PTSXS2223-91-22 18:00:0011.8[facility]annCHEM CSGGV0413-46-23 18:00:005[facility]annCHEM QWPZR3668-05-61 18:00:43609Ruauzokt HermannCHEM RVHRX6884-16-74 18:00:0040[facility]annCHEM BLBHB8571-24-62 18:00:0010.60[facility]annCHE[facility] VEYSW2401-37-15 18:00:43156 [facility]annCHE[facility] ZRICS8815-34-88 18:00:003.8[facility]annCHEM PANEL 2019-11-04 18:00:46974Scpuugcb HermannCHEM EIVDV7147-67-51 18:00:0032[facility]annCHEM EUFNX6995-54-85 18:00:009.3[facility]annCHEM MVTNT1273-51-67 18:00:0011.8[facility]annCHEM DDXEK3083-27-14 18:00:005[facility] QQLUGRVHKD5232-14-19 18:08:0010.2[facility] MrzldysFKRKQZGTDP3338-28-48 18:08:00 10.2[facility]annCHEM NIKYO6879-72-80 13:45:89940Iyojssst HermannCHEM PANEL 2019-11-03 13:45:0035[facility]annCHEM KCQNN5242-26-03 13:45:009.71[facility]annCHEM EIIBY9840-70-30 13:45:90655Afsasahf HermannCHEM GCUXY4025-46-70 13:45:003.4[facility]annCHEM GQUXD4763-75-86 13:45:34176Uqkdnqrt HermannCHEM QECLU6195-33-70 13:45:0029[facility]annCHEM AFXWL0925-78-17 13:45:009.0 [facility]annCHEM ABUVD0661-27-13 13:45:0011.4[facility]annCHEM PANEL 2019-11-03 13:45:005[facility] CatqrafAAHZTIQFFU0229-02-32 13:45:004.3[facility] KeikehnJWDEFVMOFA0477-74-25 13:45:003.00[facility] IgkkmkaKDLIJWTKKC6171-73-79 13:45:008.4[facility] ItgqwhtDLVBVUNJNR8242-04-54 13:45:0025.3[facility] JIOLBKEXOP0188-42-78 13:45:0084.3[facility] EspgrtkWFPFZIEHIT2157-23-02 13:45:00 Test Item Value Reference Range Interpretation Comments MCH (test code = MCH) 28.2 pg 27.0-31.0 [facility] TvhhjxqSRTDQLBSSC1108-76-75 13:45:0033.4[facility]annHEMATOLOGY 2019-11-03 13:45:0014.5[facility] AwrosdrPXTQRXPQPN6295-38-19 13:45:91756Ywzpdyfe GtxrjgrGWFAEYBVWK9823-68-81 13:45:006.5[facility] FsavjwiBBTMQUGEIG2964-07-76 13:45:0066.4[facility] PxoiavvWZSGVYDFWK3758-55-13 13:45:0019.6[facility] RUVLENHAGA1291-66-22 13:45:009.3[facility] IbnwuboJVLVVGRMGF5126-65-97 13:45:003.7 [facility] EbfvjzyVFOCXZZJIO9327-46-22 13:45:001.0[facility]annHEMATOLOGY 2019-11-03 13:45:002.8[facility] TkhpjicCKVDJJQJHV3588-50-78 13:45:000.8[facility] JavoxkzXKTEABSCVJ2203-98-40 13:45:000.4[facility] PpiopfiIOEMXNQMLF8472-37-18 13:45:000.2[facility] HermannCHEM ZZKVL2354-02-79 13:45:58822Ybjoegvd HermannCHEM DNYLG8006-09-91 13:45:0035[facility]annCHEM VDDXP7438-42-47 13:45:009.71 [facility]annCHEM KILRA1495-54-03 13:45:42155Aghuhgbp HermannCHEM PANEL 2019-11-03 13:45:003.4[facility] HermannCHEM QTLWK4590-39-27 13:45:90390Gsxuyclk HermannCHEM PNOZJ7169-11-18 13:45:0029[facility]annCHEM EYWGY7585-60-33 13:45:009.0[facility]annCHEM LYMQI2224-22-43 13:45:0011.4[facility] HermannCHEM IPBMD0947-24-45 13:45:005[facility] YrpndfdGUFNKZDYIJ1258-96-31 13:45:004.3 [facility] JlwvpslLHHHOXSFEN6680-83-05 13:45:003.00[facility]annHEMATOLOGY 2019-11-03 13:45:008.4[facility] DemauvuIQAXKXHLXJ8014-15-82 13:45:0025.3[facility] EpoveeyAIFWVDNEAO2922-17-38 13:45:0084.3[facility] IoahvfmSAUHCGZSNI1884-90-07 13:45:00 Test Item Value Reference Range Interpretation Comments MCH (test code = MCH) 28.2 pg 27.0-31.0 [facility] LxrtckgNOFDNPSPFG0075-81-42 13:45:0033.4[facility]annHEMATOLOGY 2019-11-03 13:45:0014.5[facility] DmrkgbdDBDINGUWOR8273-70-23 13:45:18041Xcmcghfs ZnagdeyTICQEECBVC6909-31-41 13:45:006.5[facility] NugszsjBMAUMSFRWE4086-79-22 13:45:0066.4[facility] UyvkvghIXAJQQMNYU4076-12-48 13:45:0019.6[facility] KXZGNUWOPK6721-96-83 13:45:009.3[facility] ZyqylgwJBKGFXXNZS5089-46-55 13:45:003.7 [facility] DukjmbcNMCTTTZMVA2411-79-61 13:45:001.0[facility]annHEMATOLOGY 2019-11-03 13:45:002.8[facility] DvymurgHYQANIWKPS3823-30-33 13:45:000.8[facility] FhpougwFYEHVRZPYB0147-65-21 13:45:000.4[facility] RosohjvORFMHQQODS3334-48-19 13:45:000.2[facility] SchlmueWKBBTMEPJZSR9022-50-07 13:25:88880Orjaktog Marlo VJCHMMUYEZSQ1856-86-84 13:25:003.7[facility] GxxszagVSFMSVAARJKX2467-24-63 13:25:0099[facility] JqsnysfDUZCNJIRAVFZ3297-76-86 13:25:91660Vktcsrls [facility] UPGGUZIDXQOT6673-90-16 13:25:0042[facility] NztdmzlEIUPDHKISAGD3767-47-20 13:25:00 9.35[facility] FgobxziHCUVQJTAOVYC9999-97-76 13:25:0032[facility] PJOOSPOPCKFV3864-63-82 13:25:008.8[facility] ZimcdmcLWGYSICHYGLZ4044-08-96 13:25:008.7[facility] CwokbbyXREUDEMDQXPY4678-74-31 13:25:006[facility] MABYDVISSGXI2299-90-21 13:25:07017Jczvpspl FugahamSVHNAQTNJNQQ9110-53-69 13:25:003.7[facility] YgcielyOAIBVJHCBTEF0477-16-65 13:25:0099[facility] XLVZQDZNIKLH4118-24-64 13:25:22800Zpalfobq GnhrdrjSRUXHMNTCAPN0559-72-67 13:25:0042[facility] NkfttflVPINLCZDJIOH6957-38-48 13:25:009.35[facility] PGIOKDYHFZZW2188-64-86 13:25:0032[facility] OqihjaoPQFUMZQYRLWP7671-92-55 13:25:00 8.8[facility] ZuelvhvRJTFLKPWDONY8542-75-65 13:25:008.7[facility] DFIQOSMTNPWS1895-83-06 13:25:006[facility] VnumfgnZKIPFTKZPM5227-01-17 17:58:00 10.6[facility] GrxfjahPFYYOHOGPW5813-16-84 17:58:0010.6[facility] FLUIDS 2019-11-01 15:00:00Colorless (11/01/19 9:00 AM)[facility]UIDS 2019-11-01 15:00:00Slight Cloudy (11/01/19 9:00 AM)[facility] 2019-11-01 15:00:58598Vnmzjlxe HermannB[facility] IVOSZS8524-93-55 15:00:0054[facility] ORKHBV4365-00-25 15:00:0020[facility] ZWHWDB1463-98-27 15:00:0041[facility] RJLBYW2980-68-32 15:00:0035[facility] KGORFS7100-83-18 15:00:004[facility] KPAFBS1276-67-62 15:00:00[place] (11/01/19 9:00 AM)[facility] EQPCLI0759-08-42 15:00:00Colorless (11/01/19 9:00 AM)[facility] EPWVJR8724-26-67 15:00:00Slight Cloudy (11/01/19 9:00 AM)[facility] AILMFJ3521-42-40 15:00:77295Ujkvxxat [facility]annB[facility] KNZPOI3961-52-19 15:00:0054[facility] BODITX1357-81-67 15:00:0020[facility] VUDNXO3081-71-18 15:00:0041[facility] QZMEFL3676-76-03 15:00:0035[facility] RVGXYJ4761-49-37 15:00:004 [facility] RPUSFM0911-42-28 15:00:00[place] (11/01/19 9:00 AM)[facility] IAZXFF9793-25-95 18:35:00Colorless (10/31/19 12:35 PM)[facility] DJKHXQ8747-70-78 18:35:00Slight Cloudy (10/31/19 12:35 PM)[facility] PECKIM8599-25-33 18:35:38163Xuqrwone [facility] BLBAKT2191-69-85 18:35:000[facility] AINVXG2110-27-65 18:35:0035[facility] WZDIEK9933-25-27 18:35:0021[facility] CZBGIA8949-72-78 18:35:0043 [facility] PZYYGU8947-11-23 18:35:001[facility] FLUIDS 2019-10-31 18:35:00[place] (10/31/19 12:35 PM)[facility] FLUIDS 2019-10-31 18:35:00Colorless (10/31/19 12:35 PM)[facility] FLUIDS 2019-10-31 18:35:00Slight Cloudy (10/31/19 12:35 PM)[facility] FLUIDS 2019-10-31 18:35:80698Qvadmfhd [facility] MMARWB0115-18-11 18:35:000[facility] IDKBFW2266-94-54 18:35:0035[facility] EBBXTK0203-67-01 18:35:0021[facility] BUDXSC2961-32-75 18:35:0043[facility] NPXIQE6102-41-18 18:35:001[facility] TJMVSW3982-11-52 18:35:00[place] (10/31/19 12:35 PM)[facility]annCHEM EWIQN5928-64-13 10:35:004.3[facility] HermannCHEM NUHCA9337-72-61 10:35:002.0[facility] EfubcqkUSYZFZZFZA1763-62-43 10:35:006.3[facility] RqqidfqJUEXDCCOIG9031-98-24 10:35:002.76[facility] PCMERFWBWL0447-35-66 10:35:008.1[facility] ObnehqwUOPUDUGNNE2885-75-62 10:35:00 23.5[facility] UxcbeipFCMPEOBLGA7416-02-18 10:35:0085.2[facility] HermannHEMATOLOGY 2019-10-31 10:35:00 Test Item Value Reference Range Interpretation Comments MCH (test code = MCH) 29.2 pg 27.0-31.0 [facility] AqfzuttHTFZYYUXBE0309-24-38 10:35:0034.3[facility] HermannHEMATOLOGY 2019-10-31 10:35:0014.5[facility] QzzkpvtQRYCQNMEAF0711-65-54 10:35:99942Gszjlrgu OshrlkgZWGGEHXTKF1884-89-80 10:35:007.0[facility] TvzphpqSJEJIAFUOS0314-86-20 10:35:0077.7[facility] BmqbjmpJDMDFGGCBQ3447-46-94 10:35:0010.2[facility] UMVHAQJWEM3934-40-50 10:35:0010.0[facility] XwimrolMRAJXTBRAM9757-13-94 10:35:00 1.7[facility] ReijcvpHLUMDNVUSI5785-69-44 10:35:000.4[facility] HermannHEMATOLOGY 2019-10-31 10:35:004.9[facility] MwffmfyBLIZBSNRED4092-23-65 10:35:000.6[facility] KkkxnevRRNOTIPZNN1772-56-67 10:35:000.6[facility] BsbwzyeDUHXEZMWEW1357-68-75 10:35:000.1[facility] HermannCHEM JDLAN4897-64-95 10:35:004.3[facility] HermannCHEM DJLYF8465-36-68 10:35:002.0[facility] JieiklbVLRPNUESEA2235-26-81 10:35:006.3 [facility] EncbkiwEEIGGQRUJW9199-97-31 10:35:002.76[facility]annHEMATOLOGY 2019-10-31 10:35:008.1[facility] ScxoefhOXRXWWWQZZ5531-40-13 10:35:0023.5[facility] ExxeoubYNXOJQKGAV3191-83-76 10:35:0085.2[facility] IbvacbeRWMICJIYET8900-57-54 10:35:00 Test Item Value Reference Range Interpretation Comments MCH (test code = MCH) 29.2 pg 27.0-31.0 [facility] VdsqiifCNMDKJOVQO9413-26-27 10:35:0034.3[facility] HermannHEMATOLOGY 2019-10-31 10:35:0014.5[facility] CtpqtouBKYQPVBEWY5064-15-38 10:35:95758Fcdbfhwe PboycmaSAFAGIKCFF2352-86-29 10:35:007.0[facility] LbwrutzGZHMOFJVUA1507-95-83 10:35:0077.7[facility] TwfoydzHWILQSDARS6522-14-17 10:35:0010.2[facility] WTOSFAVHKN2064-18-42 10:35:0010.0[facility] CumtmppQMILUMQQMO2952-33-89 10:35:00 1.7[facility] KlyjzgqUXOYCZXGSA6437-46-19 10:35:000.4[facility] HermannHEMATOLOGY 2019-10-31 10:35:004.9[facility] UyzqfsxHGHGDUEJFL5218-94-60 10:35:000.6[facility] KsmzaemPPHBEMAUDS7052-80-34 10:35:000.6[facility] VsanafuWSJOXLODIX8678-23-00 10:35:000.1[facility] HermannMOLECULAR MTDNPYBKXI1224-10-70 19:34:00Nasophrngl Swb *NA*(10/30/19 1:34 PM)[facility] HermannMOLECULAR DRHIKSXWNO3606-06-88 19:34:00 Negative *NA*(10/30/19 1:34 PM)[facility] HermannMOLECULAR YZOMVPZEAR3591-97-59 19:34:00Negative *NA*(10/30/19 1:34 PM)[facility] HermannMOLECULAR DIAGNOSTIC 2019-10-30 19:34:00Positive *ABN*(10/30/19 1:34 PM)[facility] HermannMOLECULAR XAHUKIDPEN7397-33-61 19:34:00Nasophrngl Swb *NA*(10/30/19 1:34 PM)[facility]annMOLECULAR YWJCVSKBXV3506-97-20 19:34:00Negative *NA*(10/30/19 1:34 PM) [facility]annMOLECULAR JNINJXPRLH2557-73-26 19:34:00Negative *NA*(10/30/19 1:34 PM)[facility] HermannMOLECULAR IVBVKONZLQ5746-34-03 19:34:00Positive *ABN*(10/30/19 1:34 PM)[facility] HermannIMIPENEM:SUSC:PT:ISOLATE:ORDQN:MATTIE 2019-10-30 18:00:00Enterococcus SpeciesMemorial [facility] IMIPENEM:SUSC:PT:ISOLATE:ORDQN:PYN3420-40-88 18:00:00Pseudomonas putidaMemorial HermannIMIPENEM:SUSC:PT:ISOLATE:ORDQN:OJG0667-63-64 18:00:00Enterococcus Species [facility] HermannIMIPENEM:SUSC:PT:ISOLATE:ORDQN:DBM3288-38-93 18:00:00Pseudomonas putidaMemorial HermannCHEM LDTGG9108-56-20 17:21:000.6[facility] HermannCHEM PANEL 2019-10-30 17:21:000.6[facility] HermannCHEM KFPJB9539-14-08 10:56:002.1[facility] HermannCHEM DCGOK7684-30-71 10:56:004.5[facility] JczwtyiMZPTGDVPHZ5331-07-95 10:56:006.7[facility] IzbxsyjAJQJJWBDUP5830-96-29 10:56:002.47[facility] EIMHIEOGYM0822-07-25 10:56:007.2[facility] UeodxcnSVPLVEYSSL6274-84-01 10:56:00 21.1[facility] WaxprmxGUOIKFGLMN2716-37-80 10:56:0085.2[facility] HermannHEMATOLOGY 2019-10-30 10:56:00 Test Item Value Reference Range Interpretation Comments MCH (test code = MCH) 28.9 pg 27.0-31.0 [facility] YejzagbDFGGINMFTJ6290-24-46 10:56:0034.0[facility] HermannHEMATOLOGY 2019-10-30 10:56:0014.6[facility] LushactCQGPMOWJGD6340-27-88 10:56:36240Ptmoccsp PudrwliENMZIUWBTD9544-82-51 10:56:007.2[facility] QhjxibpGJGKPSRINT4485-71-65 10:56:0087.8[facility] SnltishBIVFWPALTY4317-30-30 10:56:003.9[facility] KAKNXJKSPZ3047-49-90 10:56:006.8[facility] LilgisiAOTJSMXQFT1419-68-64 10:56:001.1 [facility] SxxvquxRBWNFCXOMW0435-81-03 10:56:000.4[facility] HermannHEMATOLOGY 2019-10-30 10:56:005.9[facility] MdtauinRMGUIYXQVQ3291-02-55 10:56:000.3[facility] OgtrusgODRCQROGJA8201-72-37 10:56:000.5[facility] ZciaquoYVMUSYLBGR3991-59-22 10:56:000.1[facility] HermannCHEM DIYIU4130-06-38 10:56:002.1[facility] HermannCHEM ZWXZM6845-78-55 10:56:004.5[facility] IwvzdubJWYNEMNBVM4989-71-28 10:56:006.7 [facility] ZbsyrxaMOEYOIENZX3703-96-76 10:56:002.47[facility] HermannHEMATOLOGY 2019-10-30 10:56:007.2[facility] QicpnvxHBCKRULACZ8725-05-17 10:56:0021.1[facility] OthptgeUWPEQXBDBL5132-31-16 10:56:0085.2[facility] GlnsogqLAUZEYPWFX6172-97-10 10:56:00 Test Item Value Reference Range Interpretation Comments MCH (test code = MCH) 28.9 pg 27.0-31.0 [facility] UuzytgdKMXAARNUXG9055-89-39 10:56:0034.0[facility] HermannHEMATOLOGY 2019-10-30 10:56:0014.6[facility] IeooxetGGPYJYKODX0627-68-30 10:56:77079Btrqbzrr OkciedeVBEVKSABIZ6809-08-20 10:56:007.2[facility] NettnbkJDRNGXOWZM2714-88-74 10:56:0087.8[facility] XswitwrKWUXTRNXSZ4392-01-53 10:56:003.9[facility] FHGVRKQEKY2519-33-76 10:56:006.8[facility] FvxshayFJROOUZVFY1989-64-72 10:56:001.1 [facility] ZgfjayeBMOTAVWSWM0438-57-69 10:56:000.4[facility] HermannHEMATOLOGY 2019-10-30 10:56:005.9[facility] DrjibyuEAWPSBFQEU0027-72-53 10:56:000.3[facility] YmhnyhnVTDWXFWUVR6163-82-81 10:56:000.5[facility] VsoeyyaCWBCXRMXHC0103-00-46 10:56:000.1[facility] HermannCHEM AXTPS4298-71-89 22:52:002.2[facility] HermannCHEM ZPSWE4223-70-74 22:52:005.8[facility] HermannCHEM KSXPV2859-66-16 22:52:002.2 [facility]annCHEM JCCDU3343-26-53 22:52:005.8[facility] HermannCARDIAC ENZYMES 2019-10-29 10:47:000.02[facility] HermannCARDIAC UFIAORS5606-87-07 10:47:000.02 [facility]annCARDIAC SIWCOEO4057-92-37 07:19:000.02[facility] HermannCARDIAC QEKAHNV9523-48-06 07:19:000.02[facility] HermannCARDIAC MJRYMID7417-33-68 03:06:00 <0.02[facility] HermannCHEM OFIDN6925-55-96 03:06:005.5[facility] HermannCHEM PATWD8423-25-91 03:06:002.3[facility] HermannCHEM RIKAW6350-45-05 03:06:0022 [facility]annCHEM BKGNW5867-34-50 03:06:0050[facility] HermannCHEM PANEL 2019-10-29 03:06:0068[facility] HermannCHEM IDGLU6244-88-55 03:06:000.6[facility]annCHEM KCFWI9945-37-42 03:06:00 Test Item Value Reference Range Interpretation Comments B/C Ratio (test code = B/C Ratio) 5 04-02 [facility]annCHEM PGWBI3890-30-57 03:06:003.2[facility] HermannCHEM PANEL 2019-10-29 03:06:00 Test Item Value Reference Range Interpretation Comments A/G Ratio (test code = A/G Ratio) 0.7 1 0.7-1.6 [facility] HratvodSWIIZELFNI1739-12-29 03:06:00Normal (10/28/19 9:06 PM)[facility] NjafksmPDVBODROCE6742-33-22 03:06:000.1[facility] HermannCARDIAC ILPDFNC7853-72-00 03:06:00<0.02[facility] HermannCHEM FSMHG1015-07-46 03:06:005.5[facility] CHEM PBJKT0107-87-00 03:06:002.3[facility] HermannCHEM UZLHQ3080-06-46 03:06:0022 [facility]annCHEM VBVRY1656-79-80 03:06:0050[facility] HermannCHEM PANEL 2019-10-29 03:06:0068[facility] HermannCHEM XLKHH4317-50-60 03:06:000.6[facility] HermannCHEM EDHZF2826-18-50 03:06:00 Test Item Value Reference Range Interpretation Comments B/C Ratio (test code = B/C Ratio) 5 04-02 [facility]annCHEM UYHRJ3142-65-47 03:06:003.2[facility] HermannCHEM PANEL 2019-10-29 03:06:00 Test Item Value Reference Range Interpretation Comments A/G Ratio (test code = A/G Ratio) 0.7 1 0.7-1.6 [facility] BnoaxnmPJPQYIILGS9974-58-96 03:06:00Normal (10/28/19 9:06 PM)[facility] PxprhdvLXERSBNVMG6722-09-80 03:06:000.1[facility] HermannCHEM ILJON7861-34-66 10:56:0093[facility] HermannCHEM RKKDB4666-14-06 10:56:0026[facility] HermannCHEM SNWJE5569-03-32 10:56:007.85[facility] HermannCHEM OIQBZ8863-02-37 10:56:18635 [facility]annCHEM BRMBR4154-59-71 10:56:003.7[facility] HermannCHEM PANEL 2019-08-20 10:56:44987Yvffyqgv HermannCHEM ODMRI1336-61-28 10:56:0025[facility] HermannCHEM MUQSK4605-59-78 10:56:009.2[facility] HermannCHEM FJFFC7386-70-91 10:56:007[facility] HermannCHEM ASSGF9712-75-78 10:56:0014.7[facility] QCENEUATNR8554-57-55 10:56:008.6[facility] XcrkyqlYQMJCLKKRD4252-58-99 10:56:00 3.37[facility] UbbpwiiRFCIETHXEJ3666-83-82 10:56:0010.2[facility] HermannHEMATOLOGY 2019-08-20 10:56:0029.9[facility] ApsrydbQNFVCDKIHU4347-76-37 10:56:0088.7[facility] NpftltnXZZNXNTXSC8458-84-27 10:56:00 Test Item Value Reference Range Interpretation Comments MCH (test code = MCH) 30.1 pg 27.0-31.0 [facility] DjkpbieSYGLESBKMN7595-77-88 10:56:0033.9[facility] HermannHEMATOLOGY 2019-08-20 10:56:0013.7[facility] MzsdrcyXOXVARGGGG0128-22-22 10:56:11687Hckunwyy SnestajJVUQZDIIHK0239-77-22 10:56:006.7[facility] BcketrgMHXCFDRHBA8941-47-06 10:56:0079.5[facility] KzuqxlpIUVJVKIJAI7434-15-23 10:56:0012.8[facility] EJFZFCDAAE3377-08-04 10:56:006.3[facility] RryezzfBTMKUKGEHF7429-12-64 10:56:000.6 [facility] TbiijqoPTYREFYDYE6978-83-60 10:56:000.8[facility] HermannHEMATOLOGY 2019-08-20 10:56:006.8[facility] MonppsyHUVQIJDJEK6247-57-73 10:56:001.1[facility] ZficjiaACDZUGKGZO9751-37-95 10:56:000.5[facility] QxsqjolWSGBHIONPM4935-70-30 10:56:000.1[facility] HermannCHEM ISOAL2170-46-91 10:56:0093[facility] HermannCHEM SGNYU9257-66-91 10:56:0026[facility] HermannCHEM RRJPP1770-72-83 10:56:007.85 [facility] HermannCHEM GJAOT4113-53-91 10:56:32975Ocnidwhu HermannCHEM PANEL 2019-08-20 10:56:003.7[facility] HermannCHEM ZMMTO8113-66-10 10:56:93678Nmwbmous HermannCHEM HWRHR1833-35-09 10:56:0025[facility] HermannCHEM QPBCE8212-66-75 10:56:009.2[facility] HermannCHEM SYPAF9187-27-69 10:56:007[facility] HermannCHEM EKKCU2842-19-78 10:56:0014.7[facility] VayuyntBMLFSUCOWL5424-07-64 10:56:008.6 [facility] AdtxftcJNGRXBTZLF1895-63-62 10:56:003.37[facility] HermannHEMATOLOGY 2019-08-20 10:56:0010.2[facility] WhjsgymJIWRBDECYA1517-52-67 10:56:0029.9[facility] OhqclcvBRSPEGXZQS6126-92-34 10:56:0088.7[facility] NipvpkxPMVEMOAQTK9265-56-62 10:56:00 Test Item Value Reference Range Interpretation Comments MCH (test code = MCH) 30.1 pg 27.0-31.0 [facility] UekduwnUHVCHUMNME9733-97-94 10:56:0033.9[facility] HermannHEMATOLOGY 2019-08-20 10:56:0013.7[facility] HvphgttLRHHNEMOLK2324-03-59 10:56:75923Csnzzvid UpwptjyDVWFZPMFZX8631-16-71 10:56:006.7[facility] GgmcoasVYVCBFECQS0859-62-02 10:56:0079.5[facility] FqbugsdUTDOXNIOQO3958-20-72 10:56:0012.8[facility] RJLLMFCTKE8425-10-11 10:56:006.3[facility] NzvmgmkAQJTUWKMPZ7147-07-84 10:56:000.6 [facility] BythrumPSIRIDRCXF6133-42-10 10:56:000.8[facility] HermannHEMATOLOGY 2019-08-20 10:56:006.8[facility] ZkgnhuvIBUBENJWIA1939-36-43 10:56:001.1[facility] BixrhmwYJGONXTDBY7455-58-66 10:56:000.5[facility] TlokwecAMFUOFNRBH5459-41-90 10:56:000.1[facility] HermannCHEM CJLHD5110-93-29 10:14:50247Jtoraugy HermannCHEM XZOSS1970-53-76 10:14:0018[facility] HermannCHEM RCKTU2752-49-26 10:14:007.09 [facility]annCHEM VLABJ0190-50-29 10:14:78669Hckurzjh HermannCHEM PANEL 2019-08-19 10:14:003.6[facility] HermannCHEM LYYBY8659-65-66 10:14:30059Nfsqmtdy HermannCHEM USAUF2866-36-02 10:14:0028[facility] HermannCHEM GQGNN8988-69-17 10:14:0013.6[facility] HermannCHEM ZRULN4276-82-56 10:14:009.5[facility] HermannCHEM QYAOZ4387-43-34 10:14:008[facility] TfojbrwJHFTXHSSBO8498-79-14 10:14:007.7 [facility] GgkauufBZOPOTUEDU2600-32-82 10:14:003.61[facility] HermannHEMATOLOGY 2019-08-19 10:14:0010.8[facility] NodgclfUMFTUEBCRH6565-45-94 10:14:0031.7[facility] AzfyrkhKDAKTJDJXV4157-06-22 10:14:0087.7[facility] RwnjxzfLNVAEYBVQK6698-76-19 10:14:00 Test Item Value Reference Range Interpretation Comments MCH (test code = MCH) 30.0 pg 27.0-31.0 [facility] UkrxelnQURJZIYJLR7706-62-62 10:14:0034.2[facility] HermannHEMATOLOGY 2019-08-19 10:14:0014.0[facility] IjhztdrARWTKKQFIJ5698-21-17 10:14:86114Flawxrlj HyumsyeWAVFANAXRH3872-19-31 10:14:007.0[facility] JxxhuihVXWJCDNYZG1704-81-77 10:14:0075.0[facility] LmcufrdQGBEBUZTHY1661-28-27 10:14:0015.4[facility] MGURFTZYMK9167-84-88 10:14:007.1[facility] RbhslosNYKAMCVKGI8608-81-50 10:14:001.4 [facility] DshjeyfGRLHWXWTQQ0761-86-72 10:14:001.1[facility] HermannHEMATOLOGY 2019-08-19 10:14:005.8[facility] SqzbgqjZYTKBGGRHZ8643-01-96 10:14:001.2[facility] WxsocjiSPHNSBSNYU4856-67-68 10:14:000.5[facility] JgrdrhcTRBGAZZQIS3930-23-04 10:14:000.1[facility] TbvgbdsCXEOOIJEMD4247-25-70 10:14:000.1[facility] HermannCHEM SJWUY5050-16-90 10:14:83085Snapmsdp HermannCHEM IKVUY4780-55-85 10:14:0018 [facility] HermannCHEM WNNHX4993-63-63 10:14:007.09[facility] HermannCHEM PANEL 2019-08-19 10:14:18898Uwhehdpi HermannCHEM MKFSZ8073-87-50 10:14:003.6[facility] HermannCHEM BTZXZ0644-12-99 10:14:62404Smghzxjh HermannCHEM CPYMU5493-31-55 10:14:0028[facility] HermannCHEM JZVRL2409-52-68 10:14:0013.6[facility] HermannCHEM QKNKZ9840-56-93 10:14:009.5[facility] HermannCHEM MYKWO7416-80-12 10:14:008 [facility] VskvxevIMGCEDNLZZ9620-94-86 10:14:007.7[facility] HermannHEMATOLOGY 2019-08-19 10:14:003.61[facility] TqatgthTYKJHULKSE3746-04-44 10:14:0010.8[facility] PgdrscdWMAVWGCPSS3894-21-10 10:14:0031.7[facility] BvrywibCYSPZBGPUY7762-62-31 10:14:0087.7[facility] EkjwrhjXIOYVNICCH6276-15-06 10:14:00 Test Item Value Reference Range Interpretation Comments MCH (test code = MCH) 30.0 pg 27.0-31.0 [facility] IlvtxlcLJGBFIPECD4925-12-95 10:14:0034.2[facility] HermannHEMATOLOGY 2019-08-19 10:14:0014.0[facility] EryfwsbHKWTNDYWAH2774-13-36 10:14:93019Ackieccv UluopjoHNYFTNSUII7609-18-20 10:14:007.0[facility] JqliytyVYCBCSNEWG7793-68-23 10:14:0075.0[facility] XomtcmaNFCJTGZUAF7919-48-50 10:14:0015.4[facility] VVLPFYEJXI7747-16-09 10:14:007.1[facility] RubwqenEWIJIULYMG8813-33-54 10:14:001.4 [facility] LigbtxpBMVSBWZVQZ6880-54-73 10:14:001.1[facility] HermannHEMATOLOGY 2019-08-19 10:14:005.8[facility] PmviecbFRFFUXHWOZ5701-59-23 10:14:001.2[facility] DlpvtjyZGYSNLYVFC6130-78-98 10:14:000.5[facility] MjunhkiHUEXWDVACH9012-38-53 10:14:000.1[facility] GipummeICVFMRSOZI0924-88-57 10:14:000.1[facility] HermannCHEM JJFRD0381-45-83 10:24:29946Rjazedny HermannCHEM DNLJH2598-51-77 10:24:0034 [facility] HermannCHEM CWUHZ8424-31-13 10:24:0011.00[facility] HermannCHEM PANEL 2019-08-18 10:24:09461Fthbtyul HermannCHEM JLDCU5410-05-71 10:24:003.6[facility]annCHEM IEKKZ7958-91-20 10:24:89950Cjoxyiay HermannCHEM DVDCT1279-88-03 10:24:0028[facility]annCHEM SCJWA7762-47-29 10:24:0011.6[facility]annCHEM OMTBZ4546-53-19 10:24:009.0[facility] HermannCHEM IEVGS8507-62-36 10:24:005 [facility] KwskzuhTUESHFXUHN8000-48-87 10:24:006.9[facility] HermannHEMATOLOGY 2019-08-18 10:24:003.13[facility] HqgmqrmKILWKEHSPT2140-98-01 10:24:009.3[facility] QexobauBUWVSAPQKE2730-84-90 10:24:0027.4[facility] OprrvcwIBBLXUTILP1533-87-18 10:24:0087.7[facility] IiijzejXPAWHSKFCP9553-13-09 10:24:00 Test Item Value Reference Range Interpretation Comments MCH (test code = MCH) 29.6 pg 27.0-31.0 [facility] UqlgkygSEAQUIGKYO0836-08-12 10:24:0033.8[facility] HermannHEMATOLOGY 2019-08-18 10:24:0014.0[facility] TohrbaiALQYLJOJHZ1901-64-59 10:24:65349Bbmwrdhn InzxpyeZVEMOKKSYM1517-47-32 10:24:006.9[facility] VcwnmqnHZYOREPODR4280-30-64 10:24:0078.2[facility] LyrwushZCJNCKQLXH1938-46-49 10:24:0012.2[facility] Marlo QIDFGBDZXE4432-27-74 10:24:006.6[facility] KuoenqtJAGEKPETAF6635-54-64 10:24:002.4 [facility] WmtjdpgTFXICJYECY1089-06-09 10:24:000.6[facility] HermannHEMATOLOGY 2019-08-18 10:24:005.4[facility] CssunqoKRIYZWFGGA0689-11-05 10:24:000.8[facility] XbzptfgYHDUIZLAHT3623-24-97 10:24:000.5[facility] BdkchaxCBDALABAFW7191-51-62 10:24:000.2[facility] HermannCHEM NOSCE6748-06-89 10:24:59496Wsuoingr HermannCHEM MJWES6848-83-56 10:24:0034[facility]annCHEM VXSCL8095-77-30 10:24:0011.00 [facility]annCHEM VWPIF7321-27-07 10:24:94273Iswmhtzq HermannCHEM PANEL 2019-08-18 10:24:003.6[facility]annCHEM ODHVJ7247-77-55 10:24:18520Urakridd HermannCHEM TPOOQ1550-72-03 10:24:0028[facility]annCHEM XZSXR3005-66-88 10:24:0011.6[facility]annCHEM MKKAB7809-70-58 10:24:009.0[facility]annCHEM BVPPG5326-77-47 10:24:005[facility] JiorqztSRXAMAPRYP4221-77-96 10:24:006.9 [facility] JmgvatcARNKBFDSVT1995-44-45 10:24:003.13[facility] HermannHEMATOLOGY 2019-08-18 10:24:009.3[facility] QrfcwesHDNSGKMFAE7645-02-12 10:24:0027.4[facility] CnfeuyaVGVXMVSMFN6855-09-00 10:24:0087.7[facility] MpenunjDOGLPNOIYW3664-49-28 10:24:00 Test Item Value Reference Range Interpretation Comments MCH (test code = MCH) 29.6 pg 27.0-31.0 [facility] RclmnbmASBKKSESTJ6866-94-09 10:24:0033.8[facility] HermannHEMATOLOGY 2019-08-18 10:24:0014.0[facility] AfctatlADTLEDBOCU3439-21-97 10:24:43760Cxoxbuam KimrzqkCJWORVDYJR3252-22-87 10:24:006.9[facility] CaxbxtzTRKSCCIYYV3473-61-71 10:24:0078.2[facility] SmhtgnsVVDHIFCOPT8475-20-95 10:24:0012.2[facility] Leflore BUTBMPZGMC8041-27-46 10:24:006.6[facility] ErwirpzQZWVNWWRHX7004-14-93 10:24:002.4 [facility] YunaqbgAROMHDDLFK8279-47-31 10:24:000.6[facility] HermannHEMATOLOGY 2019-08-18 10:24:005.4[facility] EtwddmmQPVHNZISHP4573-02-11 10:24:000.8[facility] MpxxctgTWGXIVPCWA7023-92-39 10:24:000.5[facility] SumzborLEAVADYRVX2774-70-80 10:24:000.2[facility] QxrovfnENOAJPHSYU3692-40-62 14:31:00Negative *NA*(08/17/19 8:31 AM)[facility] WchbwtoWMPGTJSMEY1378-85-78 14:31:00Negative *NA*(08/17/19 8:31 AM)[facility] CenterPzawguyNQJBBMEFLG2621-81-13 19:35:00 Test Item Value Reference Range Interpretation Comments PT (test code = PT) 12.2 s 12.0-14.7 [facility]worm[facility]qKADSBKRQNM6284-44-78 19:35:00 Test Item Value Reference Range Interpretation Comments INR (test code = INR) 0.92 1 0.85-1.17 [facility] HospitalBkivgbaXAQTRKQRYR5213-05-47 19:35:00 Test Item Value Reference Range Interpretation Comments PTT (test code = PTT) 37.1 s 22.9-35.8 [facility] HospitalYirjqhsOBWUCRBMDY9715-39-67 19:35:00 Test Item Value Reference Range Interpretation Comments PT (test code = PT) 12.2 s 12.0-14.7 [facility] HospitalXzggyxkPUEXEZLMLY6731-63-75 19:35:00 Test Item Value Reference Range Interpretation Comments INR (test code = INR) 0.92 1 0.85-1.17 [facility] HospitalQwrgnuoKSIAGWNYLG8464-89-51 19:35:00 Test Item Value Reference Range Interpretation Comments PTT (test code = PTT) 37.1 s 22.9-35.8 [facility]CHE[facility] WOYKH5977-07-00 10:20:003[facility] HermannCHEM PANEL 2019-04-07 10:20:0096[facility] HermannCHEM MTCJH8351-40-43 10:20:0068[facility]annCHEM QIUGL1387-24-74 10:20:008.7[facility] HermannCHEM ULLIP9261-16-35 10:20:0016.7[facility]annCHEM YUSDA8530-50-91 10:20:45247Kktehacp HermannCHEM TPICN9995-80-57 10:20:0025[facility] HermannCHEM ZUHLW1215-02-15 10:20:003.7 [facility]annCHEM BWEOC7543-77-21 10:20:0093[facility] HermannCHEM PANEL 2019-04-07 10:20:0015.20[facility] HermannCHEM OFXOE3926-79-93 10:20:003[facility]annCHEM ZAJGM4489-96-07 10:20:0096[facility] HermannCHEM AGTEA6473-93-21 10:20:0068[facility]annCHEM DJSXA7510-78-87 10:20:008.7[facility]annCHEM OUWCW6289-72-32 10:20:0016.7[facility]annCHEM RCDTW3479-58-55 10:20:81588 [facility]annCHEM QEODH9280-12-50 10:20:0025[facility] HermannCHEM PANEL 2019-04-07 10:20:003.7[facility] HermannCHEM FVEBL5543-82-84 10:20:0093[facility] HermannCHEM HYJPQ0664-96-39 10:20:0015.20[facility] HermannCARDIAC ENZYMES 2019-04-06 14:42:000.03[facility] HermannCARDIAC AWISWXP5667-31-42 14:42:000.03 [facility] HermannANEMIA QELKL4777-18-13 08:16:06056Rptghcwi HermannCARDIAC HQEEUCK8213-59-45 08:16:000.04[facility] HermannCHEM DLCDY4288-49-66 08:16:001.8 [facility]annCHEM AJNFI2264-28-35 08:16:003[facility] HermannCHEM PANEL 2019-04-06 08:16:00 Test Item Value Reference Range Interpretation Comments A/G Ratio (test code = A/G Ratio) 0.6 1 0.7-1.6 [facility]annCHEM MTIME7024-37-74 08:16:00 Test Item Value Reference Range Interpretation Comments B/C Ratio (test code = B/C Ratio) 4 1 6-25 [facility]annCHEM ALKOI9535-88-00 08:16:003.4[facility] HermannCHEM PANEL 2019-04-06 08:16:000.4[facility] HermannCHEM HCABH3199-61-77 08:16:0018.3[facility] HermannCHEM ORDFY9851-73-64 08:16:0093[facility]annCHEM TMQTD6199-85-31 08:16:0023[facility]annCHEM BVVQW5552-38-75 08:16:008.1[facility] HermannCHEM NHJUP4396-70-20 08:16:0057[facility] HermannCHEM ASFFS7246-91-64 08:16:0060 [facility]annCHEM GUEGI7839-57-98 08:16:14489Cmyiczgd HermannCHEM PANEL 2019-04-06 08:16:0015.90[facility] HermannCHEM DYBRQ4824-90-55 08:16:004.3[facility] HermannCHEM PGOGO3999-30-73 08:16:0021[facility] HermannCHEM AFLVW9006-63-51 08:16:0076[facility] HermannCHEM VYNRQ4397-62-52 08:16:0016[facility] HermannCHEM KWZGK8193-92-41 08:16:005.6[facility] HermannCHEM XSXIM2886-27-23 08:16:002.2 [facility] CenterIsffnznEMYZCFMJGI9606-03-93 08:16:00 Test Item Value Reference Range Interpretation Comments PTT (test code = PTT) 41.5 s 22.9-35.8 [facility] CenterEfkwrhlITQVHSLZNL8432-99-58 08:16:00 Test Item Value Reference Range Interpretation Comments PT (test code = PT) 14.4 s 12.0-14.7 [facility] CenterEizpunbEGQJMKUVID6372-64-34 08:16:00 Test Item Value Reference Range Interpretation Comments INR (test code = INR) 1.14 1 0.85-1.17 [facility] CenterYanrrdgMJGXNYBEDK0167-78-43 08:16:0015.5[facility]annHEMATOLOGY 2019-[facility]-06 08:16:07028Slutihoc TqnkewiLLUIYHFBIP1263-71-59 08:16:00 Test Item Value Reference Range Interpretation Comments MCH (test code = MCH) 28.7 pg 27.0-31.0 [facility] UnrsppgRDUXGOYAIR9251-75-10 08:16:0034.2[facility]annHEMATOLOGY 2019-04-06 08:16:0084.1[facility] WcznhcvGXPAFQLQKU2745-92-70 08:16:0011.4[facility] WqpmhiaNIKFYWECMM4630-25-24 08:16:0033.2[facility] WfiaqsdOSMAOJDUXF3317-24-04 08:16:0010.2[facility] AklzsinXUXXLUGUSZ3527-99-90 08:16:003.95[facility] DAKPCNRJNN7470-94-96 08:16:008.3[facility] CmmwcjfJGLOVYPZXY8411-34-35 08:16:00 84.8[facility] RcrswolOHWSNZGPAE2802-94-27 08:16:000.1[facility]annHEMATOLOGY 2019-04-06 08:16:000.5[facility] DiizqlzDBKUXHMRPQ5244-15-63 08:16:001.2[facility] BqgsgdrCOPLVWCPXT5927-51-39 08:16:006.5[facility] QcmjiigRNVWCSBOIM0989-02-98 08:16:007.0[facility] KrqyqckXUGRVFHCYU0892-92-99 08:16:000.1[facility] LMDTYHQSIE2952-71-76 08:16:000.7[facility] YfvnrwdOAQSPSAWMA7889-42-60 08:16:000.7 [facility] FqixesrXPBCXMCVMQ5681-83-73 08:16:008.7[facility] HermannANEMIA STUDY 2019-04-06 08:16:67587Utfjvlai HermannCARDIAC OFTPLYL2633-90-25 08:16:000.04 [facility]annCHEM PPLDT8298-23-46 08:16:001.8[facility]annCHEM PANEL 2019-04-06 08:16:003[facility]annCHEM YOUNQ5852-89-60 08:16:00 Test Item Value Reference Range Interpretation Comments A/G Ratio (test code = A/G Ratio) 0.6 1 0.7-1.6 [facility]annCHEM BZUYT2409-98-16 08:16:00 Test Item Value Reference Range Interpretation Comments B/C Ratio (test code = B/C Ratio) 4 1 6-25 [facility] HermannCHEM PAPCD4992-22-93 08:16:003.4[facility]annCHEM PANEL 2019-04-06 08:16:000.4[facility]annCHEM BXQRB7372-97-46 08:16:0018.3[facility] HermannCHEM FDMUZ9748-58-60 08:16:0093[facility]annCHEM TEEUN9379-37-77 08:16:0023[facility]annCHEM IJWZL8471-18-82 08:16:008.1[facility]annCHEM NQFMU4850-02-28 08:16:0057[facility]annCHEM LWJGC4655-97-29 08:16:0060 [facility] HermannCHEM LGPRC6798-76-01 08:16:29183Pccvelcw HermannCHEM PANEL 2019-04-06 08:16:0015.90[facility] HermannCHEM DHIVM7278-11-66 08:16:004.3[facility] HermannCHEM UTKAN3830-12-84 08:16:0021[facility]annCHEM NEXSN6708-46-04 08:16:0076[facility] HermannCHEM QEECL0284-93-62 08:16:0016[facility]annCHEM GNLQV1046-60-62 08:16:005.6[facility]annCHEM ACZNV3613-96-02 08:16:002.2 [facility]YquxpzaCRFOYNZXGS8832-72-87 08:16:00 Test Item Value Reference Range Interpretation Comments PTT (test code = PTT) 41.5 s 22.9-35.8 [facility] CenterXxhnsmaWLIZWCDGXI9796-17-07 08:16:00 Test Item Value Reference Range Interpretation Comments PT (test code = PT) 14.4 s 12.0-14.7 [facility] CenterVajreziBVAJPTLEZU9028-44-38 08:16:00 Test Item Value Reference Range Interpretation Comments INR (test code = INR) 1.14 1 0.85-1.17 [facility] CenterJitwthaOEOJFYQLZI3697-71-44 08:16:0015.5[facility]annHEMATOLOGY 2019-04-06 08:16:54524Crojznjw XcswskiPXNFDKFYXR0001-19-04 08:16:00 Test Item Value Reference Range Interpretation Comments MCH (test code = MCH) 28.7 pg 27.0-31.0 [facility] CbaawxaOIAQKZMRMP7115-11-37 08:16:0034.2[facility]annHEMATOLOGY 2019-04-06 08:16:0084.1[facility] VaalvapIUMBVPIQET0185-46-54 08:16:0011.4[facility] BypmdsqIBOBCCMXRN5232-31-06 08:16:0033.2[facility] KbmpslnDRTWRJQIAN6876-71-85 08:16:0010.2[facility] WqogpdhOTWFGKPHYC1063-07-02 08:16:003.95[facility] KYPESDOPUB4088-39-90 08:16:008.3[facility] MuskgdoRJSSRIZRDJ8749-84-13 08:16:00 84.8[facility] KerclvoKAQOBPLDCZ0408-11-75 08:16:000.1[facility]annHEMATOLOGY 2019-04-06 08:16:000.5[facility] RmeghowISVPSJHDTH4902-37-14 08:16:001.2[facility] TavbgbaTMTJOXZVHN9141-56-20 08:16:006.5[facility] FgsqqauZXDODIGNZU3292-32-86 08:16:007.0[facility] WqecdluGBAKSQGYQG9876-64-72 08:16:000.1[facility] EZBTICDSAR6213-60-01 08:16:000.7[facility] PeysuahGLDMVSPFQM0127-57-32 08:16:000.7 [facility] YjcrrxdKJSHJHZLNB7060-71-01 08:16:008.7[facility]annCHEM PANEL 2019-04-06 04:17:000.3[facility] HermannCHEM OHXEU8955-58-13 04:17:000.3[facility] HermannCARDIAC YATMXEI7157-43-75 02:25:000.03[facility] LjrulwiBGZZGW5265-41-60 02:25:00 Test Item Value Reference Range Interpretation Comments CHD Risk (test code = CHD Risk) 3.10 1 4.00-7.30 [facility] FkpykffJASKJR6877-57-74 02:25:00 Test Item Value Reference Range Interpretation Comments VLDL (test code = VLDL) 21 1 [facility] XqwnuqhGGSMQR0355-57-45 02:25:0058[facility] CzohiaqUTEHVT7062-31-07 02:25:71332Iwvsgnzu QavksvmBJIORV1317-91-02 02:25:08571Fwqrhoej HermannLIPIDS 2019-04-06 02:25:38583Zdswnyhb HermannSPECIAL VFOXWGFWM4041-33-45 02:25:004.0 [facility] HermannCARDIAC GOZNTRF2943-75-92 02:25:000.03[facility] HermannLIPIDS 2019-04-06 02:25:00 Test Item Value Reference Range Interpretation Comments CHD Risk (test code = CHD Risk) 3.10 1 4.00-7.30 [facility] WiseeibTGMKFJ1993-97-24 02:25:00 Test Item Value Reference Range Interpretation Comments VLDL (test code = VLDL) 21 1 [facility] PzenzsmFQBTZD3829-00-63 02:25:0058[facility] HpyotxaZLXUWU0008-42-78 02:25:92658Gxjsoihl SkbiljoVCFVGK3260-90-68 02:25:46994Kdfnxqbk HermannLIPIDS 2019-04-06 02:25:02091Pfbxphwj HermannSPECIAL XNQCSRNSR6396-95-79 02:25:004.0 [facility] HermannCHEM AYMIX0349-77-79 12:41:006.1[facility] HermannELECTROLYTES 2018-07-23 12:41:0014.8[facility] YgqmfmgQGGKNUJLLVSR5995-23-09 12:41:004[facility] HgnconlSPFOHMSZIBTG0077-01-07 12:41:0027[facility] AhuvcmzHYQNRCUKWEHS9730-18-69 12:41:007.9[facility] FnkyvwcOVGHFJORIDUT0803-12-96 12:41:0012.90[facility] NMONWMCSBNUR5934-44-28 12:41:0060[facility] SkbtbghEMYVMMWPFUPZ4645-53-67 12:41:00 139[facility] ThzjjzwMBQYOFJXDJAK0841-15-97 12:41:0093[facility] HermannELECTROLYTES 2018-07-23 12:41:40819Gjgerpza GkwbsrkBUKFRMHOLZGA7029-82-66 12:41:004.8[facility] CepeicrJSXXDSLMYH2265-97-99 12:41:0035.3[facility] TqfepbnVXDQCWMFWH4785-83-40 12:41:007.8[facility] SpxcphjDKJGYBRMTW0469-10-01 12:41:0022.0[facility] JNGHEQTFOF1879-42-13 12:41:002.68[facility] IdhrqzvDCCYQTBBIO0412-89-54 12:41:00 4.4[facility] ZzrdogtGKLPZOEDWT2889-02-51 12:41:0014.5[facility]annHEMATOLOGY 2018-07-23 12:41:0082.1[facility] PnuiopuGVDSEPAEQN9009-42-04 12:41:00 Test Item Value Reference Range Interpretation Comments MCH (test code = MCH) 29.0 pg 27.0-31.0 [facility] WguphmxXQMVUGOXLO0547-71-30 12:41:28633Bjgtwbtm HermannHEMATOLOGY 2018-07-23 12:41:007.3[facility] BevvpdiLZSKDKTBUF2053-88-81 12:41:000.4[facility] ExyyieqGPNULSLQST4180-73-59 12:41:000.2[facility] WjdrxesDWRXDWLVYZ8997-63-63 12:41:009.7[facility] LgfcpqyPOEBTFNJXQ4167-95-77 12:41:003.7[facility] LORQGEBWJY9125-87-68 12:41:000.8[facility] FiqsskfMBBRFNEWZZ9381-85-14 12:41:003.0 [facility] LniomxsAPGLQKJYVA3268-49-10 12:41:000.8[facility]annHEMATOLOGY 2018-07-23 12:41:0067.6[facility] SexzwfyFMAYLVYWED1530-44-97 12:41:0018.2[facility] HermannCHEM KRNEX2820-70-03 12:41:006.1[facility] LmczvlfEGDYEQTJWEGX6139-88-48 12:41:0014.8[facility] MkemgdmDRSNMPCRFCNJ4531-62-21 12:41:004[facility] RZCAUPEOODVF4090-92-72 12:41:0027[facility] UpkaskeWJDAJTKVPENO7971-13-97 12:41:00 7.9[facility] YxohemyCLLHDLOVLPRN1834-58-41 12:41:0012.90[facility] GDQEWMVCPADJ5660-42-79 12:41:0060[facility] TaqxyvxZXYUDEDVRSLA3569-14-52 12:41:00 139[facility] BdtyfxyCXHUQTEFQYRY6728-79-30 12:41:0093[facility] HermannELECTROLYTES 2018-07-23 12:41:69278Ozcvtajg EosrqthMUBBPPXQARYO2353-42-95 12:41:004.8[facility] FxsehsyFDWPGOATXB0668-97-08 12:41:0035.3[facility] XwzwekfGVGZIHUBXW6711-36-00 12:41:007.8[facility] QksfxkkENKCYJMUWT9483-45-22 12:41:0022.0[facility] SCGRRVNHZZ9187-96-40 12:41:002.68[facility] ZahrkeuNDMPOJYSQF9662-61-15 12:41:00 4.4[facility] ZciixahSPXHKXRILW4514-22-69 12:41:0014.5[facility] HermannHEMATOLOGY 2018-07-23 12:41:0082.1[facility] WvngkvxXZILVYAAXA5137-73-06 12:41:00 Test Item Value Reference Range Interpretation Comments MCH (test code = MCH) 29.0 pg 27.0-31.0 [facility] MxjxmgrVDWVROSQWF6807-68-46 12:41:17476Cdcleexq HermannHEMATOLOGY 2018-07-23 12:41:007.3[facility] MeenvcfFVLRDJKJTN8856-71-10 12:41:000.4[facility] GusvwvfXMULGTAXDS5135-30-40 12:41:000.2[facility] WrdlnopVNJMFLMUAI9579-55-20 12:41:009.7[facility] FvrkidrBSVRQEDXRU7906-11-52 12:41:003.7[facility] LNVIVPNGQM5668-45-06 12:41:000.8[facility] QybesbjPYMMSZNVBB0201-38-01 12:41:003.0 [facility] KnhzazdIMMOFCHVTL1857-68-77 12:41:000.8[facility]annHEMATOLOGY 2018-07-23 12:41:0067.6[facility] BagqvdbWBHRTPHXWH3905-71-09 12:41:0018.2[facility] HermannCHEM MJMPD8301-33-07 11:17:002.5[facility] HermannCHEM DDGZT1926-58-05 11:17:008.3[facility] WdnhhboNFXHBKHDNUKQ3342-50-55 11:17:0022[facility] BDXKNNWRPRUT4227-88-21 11:17:007.5[facility] KkicfoxNGCABBIYAKZA7114-43-94 11:17:0098[facility] EibfpvvUEATJTYLBZUO8500-69-55 11:17:002[facility] UQSUNVFDMDDV3678-86-70 11:17:0019.20[facility] GvaghxnVYZSJSYQHPKE6410-92-43 11:17:0097[facility] CpbmsayIWLMRCYSAPPO2621-43-22 11:17:004.7[facility] QQQAILSESFMT7225-42-47 11:17:71920Mhkhptxq MhgmlfuRAQRFXBFMCJX4343-94-00 11:17:0082[facility] UmosfqcFYKQLNEQYRQE8618-28-08 11:17:0019.7[facility] TNQQIHONBS4454-70-54 11:17:004.9[facility] NefjztuCMVIEEXXTD1033-80-45 11:17:00 2.85[facility] ZpybhikQKGOQGLNOD3246-96-53 11:17:0082.3[facility]annHEMATOLOGY 2018-07-22 11:17:00 Test Item Value Reference Range Interpretation Comments MCH (test code = MCH) 28.8 pg 27.0-31.0 [facility] GyhafpdZUUVGQAZBN7372-59-66 11:17:008.2[facility]annHEMATOLOGY 2018-07-22 11:17:0023.4[facility] UanmddhITFHEWRMGQ8970-75-31 11:17:0015.0[facility] DlpdcytNYCXWCWTZO2267-03-02 11:17:0035.0[facility] UibkhdyMERZMHMOCQ3534-90-01 11:17:007.4[facility] HnjvjlaJCZNMYGPZI3383-13-64 11:17:74751Nhtmnmot [place] TMYFVFKIQW1244-22-46 11:17:0020.3[facility] WghyaviNIFLFSPFPA9415-28-13 11:17:00 1.0[facility] DziilnmNLDHGUTOSV0357-69-57 11:17:0067.1[facility] HermannHEMATOLOGY 2018-07-22 11:17:003.3[facility] MbzzkihLYOTWIKSSO6276-72-33 11:17:003.1[facility] YlvwdekISEFWTAHQU6590-29-69 11:17:008.5[facility] WhkhkyhGZWAWCNATN5650-64-62 11:17:000.4[facility] NpqdcspGKKSRJFCKX1669-70-24 11:17:001.0[facility] JNBIXURYNO8949-56-25 11:17:000.1[facility] VwpdcpqHWPEHDTHJG6972-18-34 11:17:00 Negative *NA*(07/22/18 6:17 AM)[facility] HermannCHEM BYDKK8839-95-37 11:17:002.5 [facility]annCHEM OSQXU2315-53-95 11:17:008.3[facility] HermannELECTROLYTES 2018-07-22 11:17:0022[facility] UfqrpemEKLXCHLNAYKZ2989-29-51 11:17:007.5[facility] XutklomNMAQXTLRUKVL7257-93-44 11:17:0098[facility] DpcrgxtUQROJCYKJZLN4003-54-55 11:17:002[facility] VylntezQZWXJSMUVSPZ9033-53-92 11:17:0019.20[facility] CQZPNKHQAKEE8098-97-10 11:17:0097[facility] EpxduawJMGTNLKTEEMK2850-86-92 11:17:00 4.7[facility] GdzosciADFSFCOJRGPO0493-10-22 11:17:28091Kcfejbwg [facility] NAGWFFMMPSDO7817-22-42 11:17:0082[facility] PkukioiJQGLWEFRZTDN1629-59-92 11:17:00 19.7[facility] ZrcxhirHSPCJECFCM5084-46-38 11:17:004.9[facility]annHEMATOLOGY 2018-07-22 11:17:002.85[facility] ShuvqxfLBCMPINBFX4635-34-56 11:17:0082.3[facility] ImemgrkWWMIBDGZKO5101-46-19 11:17:00 Test Item Value Reference Range Interpretation Comments MCH (test code = MCH) 28.8 pg 27.0-31.0 [facility] FrojdbrHJRPZWUTOH4964-80-87 11:17:008.2[facility]annHEMATOLOGY 2018-07-22 11:17:0023.4[facility] BlaeqxkWARXZEBAHI2993-95-14 11:17:0015.0[facility] XyfxeaiKZFCFGCBWW5594-30-58 11:17:0035.0[facility] TgbhchlFEHGKWKXZO0161-85-97 11:17:007.4[facility] ZigewnhLMWSRVBZXA6226-77-12 11:17:86665Xqxxwnzz [place] NCONOPFAIR7202-03-14 11:17:0020.3[facility] LqusczqGDIBPZIVXJ8155-30-53 11:17:00 1.0[facility] LbwdsnzEWZUXPPAQS7328-81-51 11:17:0067.1[facility]annHEMATOLOGY 2018-07-22 11:17:003.3[facility] AiprruuRMQLWXYSAV7115-81-88 11:17:003.1[facility] IbaksutONBGRSFHJI5356-80-13 11:17:008.5[facility] AmmvnunRARTSRIEJR8708-42-31 11:17:000.4[facility] CoxdisoCPQTEWZVZM5962-37-22 11:17:001.0[facility] RKRXMKSEXH1212-57-48 11:17:000.1[facility] CmsqmltRXEUSSBJII1495-84-87 11:17:00 Negative *NA*(07/22/18 6:17 AM)[facility] HermannCARDIAC DXAJHED9126-00-72 02:46:7159286Qjzdxitf HermannCARDIAC VWAKDNS4363-18-42 02:46:00<0.02[facility] HermannCARDIAC YMTGDVU8683-79-02 02:46:0091[facility] HermannCHEM ZVJZU0166-24-86 02:46:0095[facility] HermannCHEM KPYXW2329-39-91 02:46:003.2[facility] HermannCHEM ZXDUC7795-07-98 02:46:00 Test Item Value Reference Range Interpretation Comments A/G Ratio (test code = A/G Ratio) 0.9 1 0.7-1.6 [facility]annCHEM FFBIU7372-61-08 02:46:00 Test Item Value Reference Range Interpretation Comments B/C Ratio (test code = B/C Ratio) 5 1 6-25 [facility]annCHEM LLRNL6306-83-34 02:46:0018.7[facility] HermannCHEM PANEL 2018-07-22 02:46:002[facility]annCHEM MJKPB5255-71-37 02:46:007.6[facility] HermannCHEM ZQUWF6057-30-06 02:46:0024[facility]annCHEM VTEKS4073-29-54 02:46:0098[facility]annCHEM NVVPF4223-19-74 02:46:004.7[facility] HermannCHEM FYXPR8637-73-29 02:46:75429Lagppeuw HermannCHEM GAAIP9675-88-54 02:46:002.8 [facility]annCHEM VXYZG3841-41-05 02:46:0013[facility]annCHEM PANEL 2018-07-22 02:46:009[facility] HermannCHEM KDBVH9547-71-59 02:46:0057[facility]annCHEM WYRFB7355-43-20 02:46:006.0[facility] HermannCHEM DXLWM9954-82-85 02:46:000.4[facility] HermannCHEM KLAFS9189-76-85 02:46:0018.60[facility] CHEM CTVSK5679-92-24 02:46:0089[facility] HermannCHEM AJSED2090-19-49 02:46:0095 [facility] BgonjjvZRAPYGGRUS3547-77-66 02:46:0066.2[facility] HermannHEMATOLOGY 2018-07-22 02:46:0021.4[facility] FgkyylxGJVRYEZAQZ6012-58-81 02:46:007.7[facility] AzohgehZTILDXOQVD0767-98-34 02:46:000.9[facility] WrrypesZCLTOROKMD1072-42-37 02:46:001.2[facility] UgicihyOXKKEWTDYY1339-76-75 02:46:000.3[facility] FMEGRNBZIY8613-87-09 02:46:000.1[facility] JqxheyfRJJLWGLZAT8341-15-06 02:46:002.7 [facility] VmydvxnONYDFOWKWT8646-70-34 02:46:003.5[facility]annHEMATOLOGY 2018-07-22 02:46:00 Test Item Value Reference Range Interpretation Comments PT (test code = PT) 14.4 s 12.0-14.7 [facility] JmgiqvzWCPHSUZEPJ1612-13-00 02:46:00 Test Item Value Reference Range Interpretation Comments INR (test code = INR) 1.12 1 0.85-1.17 [facility] ZcklwtzVPQXIOSZSU7020-25-75 02:46:00 Test Item Value Reference Range Interpretation Comments PTT (test code = PTT) 37.1 s 22.9-35.8 [facility] ObnlsztSDJUADSHTK7370-02-17 02:46:0014.8[facility] HermannHEMATOLOGY 2018-07-22 02:46:83586Gfsrnfkb KicibvsGKCATCPZJO6533-94-16 02:46:007.6[facility] DncccbdZOOPDKFVHX3232-74-40 02:46:002.83[facility] QydxwwqTMMUUJWQOO0509-93-85 02:46:004.1[facility] ZujwfqvVKGCHVBJHV2971-75-63 02:46:0035.2[facility] SBQBAGVTBV1516-90-15 02:46:00 Test Item Value Reference Range Interpretation Comments MCH (test code = MCH) 28.8 pg 27.0-31.0 [facility] ZuatrbvGTZBHAHLQF5343-39-71 02:46:008.1[facility] HermannHEMATOLOGY 2018-07-22 02:46:0081.9[facility] PgshzhdKZZFSNDMAO0151-01-40 02:46:0023.2[facility] HermannCARDIAC YCXCJMV5570-02-21 02:46:7487218Iykfibpq HermannCARDIAC ENZYMES 2018-07-22 02:46:00<0.02[facility] HermannCARDIAC LBRXWPM9193-87-82 02:46:0091 [facility] HermannCHEM GWOTT3953-63-72 02:46:0095[facility] HermannCHEM PANEL 2018-07-22 02:46:003.2[facility] HermannCHEM BHJHN5077-40-71 02:46:00 Test Item Value Reference Range Interpretation Comments A/G Ratio (test code = A/G Ratio) 0.9 1 0.7-1.6 [facility] HermannCHEM TGPZG8827-87-92 02:46:00 Test Item Value Reference Range Interpretation Comments B/C Ratio (test code = B/C Ratio) 5 1 6-25 [facility] HermannCHEM YIIZA4823-86-16 02:46:0018.7[facility] HermannCHEM PANEL 2018-07-22 02:46:002[facility] HermannCHEM QJZCY6275-86-37 02:46:007.6[facility] HermannCHEM FSVTE6599-72-17 02:46:0024[facility] HermannCHEM ADDFV0843-57-13 02:46:0098[facility] HermannCHEM ZKCRZ8958-28-65 02:46:004.7[facility] HermannCHEM FSJZG1929-42-30 02:46:68651Wjcardsv HermannCHEM TIAHL5319-12-20 02:46:002.8 [facility] HermannCHEM VBKTT6803-89-52 02:46:0013[facility] HermannCHEM PANEL 2018-07-22 02:46:009[facility] HermannCHEM JFMCP5782-29-25 02:46:0057[facility] HermannCHEM JQKFW1809-93-44 02:46:006.0[facility] HermannCHEM GGQSM7901-31-41 02:46:000.4[facility] HermannCHEM UMHAC6886-08-80 02:46:0018.60[facility] CHEM SITFG4217-14-18 02:46:0089[facility] HermannCHEM CQNFN0000-25-73 02:46:0095 [facility] VfzkersJCASFATCHG0458-60-16 02:46:0066.2[facility] HermannHEMATOLOGY 2018-07-22 02:46:0021.4[facility] AhhhhkpROGQEKYZYR4731-74-47 02:46:007.7[facility] GimfyanHXOPTLWKVX5938-06-63 02:46:000.9[facility] FbkelveVTYZIWXIHY3525-41-83 02:46:001.2[facility] JqaqvifASOANSEQSA6711-97-26 02:46:000.3[facility] QISULDYLBQ1168-45-97 02:46:000.1[facility] UxvbldzTUITJTMOQI4586-49-57 02:46:002.7 [facility] MhavmytUDZYLEXWIB6210-73-35 02:46:003.5[facility] HermannHEMATOLOGY 2018-07-22 02:46:00 Test Item Value Reference Range Interpretation Comments PT (test code = PT) 14.4 s 12.0-14.7 [facility] ArsnkbuHOSONVFZZJ1503-69-54 02:46:00 Test Item Value Reference Range Interpretation Comments INR (test code = INR) 1.12 1 0.85-1.17 [facility] OrthtpyJBZUGVJWST9331-78-98 02:46:00 Test Item Value Reference Range Interpretation Comments PTT (test code = PTT) 37.1 s 22.9-35.8 [facility] DbekxrnWZBDNJBJZE5013-08-67 02:46:0014.8[facility] HermannHEMATOLOGY 2018-07-22 02:46:02894Ibbmcdjd FetbwbyDXWCIRKBJB4361-67-55 02:46:007.6[facility] FbvfgahWOSMJSNPBC7614-36-87 02:46:002.83[facility] PilnekqCOXQMPUAXI6134-52-84 02:46:004.1[facility] VeojdrgEVHDHBTLCJ8680-88-12 02:46:0035.2[facility] VZXYIZRTFB9870-08-54 02:46:00 Test Item Value Reference Range Interpretation Comments MCH (test code = MCH) 28.8 pg 27.0-31.0 [facility] CkduywyZANHZAVULI2963-05-21 02:46:008.1[facility] HermannHEMATOLOGY 2018-07-22 02:46:0081.9[facility] EqrxbegCBHDVSHCMY6909-44-90 02:46:0023.2[facility] HermannCHEM OCFLW6690-18-27 22:52:0086[facility] HermannCHEM FKTOS2574-43-25 22:52:0097[facility] HermannCHEM SUMMG6458-81-33 22:52:005.2[facility] HermannCHEM WDBYE7806-22-94 22:52:05020Kixbqlwn HermannCHEM IZASS2883-63-81 22:52:0017.30 [facility] HermannCHEM EOHOZ2046-11-16 22:52:0098[facility] HermannCHEM PANEL 2018-07-20 22:52:003[facility] HermannCHEM JATNL3942-91-26 22:52:0070[facility] HermannCHEM AUDXV2311-48-45 22:52:0010[facility] HermannCHEM YPFRS7077-96-32 22:52:000.4[facility] HermannCHEM EASZI0888-13-70 22:52:006.8[facility]annCHEM KQDLL3570-67-56 22:52:008.1[facility]annCHEM TLOII3485-28-33 22:52:0024 [facility]annCHE[facility] MHICK8798-28-93 22:52:0019[facility]annCHEM PANEL 2018-07-20 22:52:003.3[facility]annCHEM DCUGR5589-67-33 22:52:00 Test Item Value Reference Range Interpretation Comments A/G Ratio (test code = A/G Ratio) 0.9 1 0.7-1.6 [facility]CHE[facility] GSHZY9656-59-54 22:52:0019.2[facility]annCHEM PANEL 2018-07-20 22:52:003.5[facility]annCHEM AIQLV0577-85-17 22:52:00 Test Item Value Reference Range Interpretation Comments B/C Ratio (test code = B/C Ratio) 5 1 6-25 [facility] YldgxvsAQJACWBLAV8446-13-72 22:52:92790Kziyqcjt HermannHEMATOLOGY 2018-07-20 22:52:006.8[facility] VafmfxeXUCHQMNQBO3641-11-18 22:52:0035.4[facility] HwpnzfxPQPGTTXNGP7210-01-70 22:52:0015.1[facility] CqtbnseSXUYCKVPDS2841-27-66 22:52:0026.1[facility] EdirsgkXSSNJICFKP1276-67-46 22:52:0081.4[facility] YZOXYTKHCA2429-97-26 22:52:00 Test Item Value Reference Range Interpretation Comments MCH (test code = MCH) 28.8 pg 27.0-31.0 [facility] ZvczjzeDUIDUUGTOH5517-13-82 22:52:005.4[facility] HermannHEMATOLOGY 2018-07-20 22:52:003.20[facility] QfgxekkIVWEEGNCSC3981-09-27 22:52:009.2[facility] ZmwmelrTEYKSCJPJL8308-13-56 22:52:0074.0[facility] TthgrppRJEQALYKUL6401-34-17 22:52:0015.5[facility] DtimofaRLIESQKODM6593-93-56 22:52:006.7[facility] ZSWCHAIUMD3090-97-01 22:52:002.8[facility] VqylnzhGNJLISQHRZ9935-42-51 22:52:001.0 [facility] DflbdikKITAYUIEAE1954-42-72 22:52:004.0[facility]annHEMATOLOGY 2018-07-20 22:52:000.1[facility] ZtgoyrrCLRJQSKYJJ6937-01-08 22:52:000.2[facility] AwctfuxDHBJJHBHOA0171-88-87 22:52:000.8[facility] FkoannkXIXZCRFBWF9664-88-31 22:52:000.4[facility]annCHEM OZEXM7854-39-26 22:52:0086[facility]annCHEM QNGIR3208-04-23 22:52:0097[facility]annCHEM PWFJY8739-35-49 22:52:005.2 [facility]annCHEM DZFOV2570-93-18 22:52:39698Ggydjczb HermannCHEM PANEL 2018-07-20 22:52:0017.30[facility]annCHEM YVRFV8773-23-26 22:52:0098[facility]annCHEM TMRQC4827-18-88 22:52:003[facility]annCHEM AKYGV9047-35-81 22:52:0070[facility]annCHEM BXSFU9596-85-56 22:52:0010[facility]annCHEM OUCXL9344-13-17 22:52:000.4[facility]annCHEM MQJNK8149-26-19 22:52:006.8 [facility]annCHEM DVBAJ7360-94-36 22:52:008.1[facility]annCHEM PANEL 2018-07-20 22:52:0024[facility]annCHEM QONZG0191-87-06 22:52:0019[facility]annCHEM PEQIW4568-85-13 22:52:003.3[facility]annCHEM DJUHQ9568-09-52 22:52:00 Test Item Value Reference Range Interpretation Comments A/G Ratio (test code = A/G Ratio) 0.9 1 0.7-1.6 [facility]annCHEM IXCWZ3083-10-34 22:52:0019.2[facility]annCHEM PANEL 2018-07-20 22:52:003.5[facility]annCHEM AUOWY5222-51-77 22:52:00 Test Item Value Reference Range Interpretation Comments B/C Ratio (test code = B/C Ratio) 5 1 6-25 [facility] FdhzmdeXYJHKBONIN8227-19-84 22:52:52968Agshbsuj HermannHEMATOLOGY 2018-07-20 22:52:006.8[facility] BunevuwFSITGALCUE4502-41-82 22:52:0035.4[facility] RgczponZSQJMNPVNP3206-70-23 22:52:0015.1[facility] KbkdcobAZCYINGEGU6677-92-44 22:52:0026.1[facility] GzhkcyjOFIVGXVQQE6843-81-92 22:52:0081.4[facility] QTYIHIGJID3258-22-72 22:52:00 Test Item Value Reference Range Interpretation Comments MCH (test code = MCH) 28.8 pg 27.0-31.0 [facility] MbafcxhTIBSCFGRUB3168-52-93 22:52:005.4[facility] HermannHEMATOLOGY 2018-07-20 22:52:003.20[facility] QfcpttjXIXEBNNWWW7119-42-44 22:52:009.2[facility] HqisyoiJDKKYXQURY9535-29-79 22:52:0074.0[facility] FduzclmFXNDOEHGES7502-55-43 22:52:0015.5[facility] RkysjijOPZVVHDSOQ7309-73-50 22:52:006.7[facility] MLAWZGCUNY1273-35-01 22:52:002.8[facility] LhmsipvTJJJHBRNGF5467-26-00 22:52:001.0 [facility] YoyblqyFCNWZMVOEA4330-66-27 22:52:004.0[facility] HermannHEMATOLOGY 2018-07-20 22:52:000.1[facility] IbhhulhUKPJLLZUMS0238-94-98 22:52:000.2[facility] EdlpqwxPRAICKSDMH7667-76-87 22:52:000.8[facility] DhjjhutJGJZZGSSVR8599-80-67 22:52:000.4[facility]annURINE AND ZRJRP0380-03-63 15:20:00Small *ABN*(05/23/18 10:20 AM)[facility] AND BMCBS6272-25-40 15:20:00<1[facility] AND NESRL8859-77-65 15:20:009[facility] AND HNAWJ8362-53-70 15:20:00Negative (05/23/18 10:20 AM)[facility] SEQIS3265-33-62 15:20:00Trace *ABN*(05/23/18 10:20 AM)[facility] IQIJN7155-41-72 15:20:00Negative *NA*(05/23/18 10:20 AM)[facility] ZZBUS9168-31-54 15:20:00 Test Item Value Reference Range Interpretation Comments UA pH (test code = UA pH) 6.5 1 5.0-8.0 [facility] GYSSS3736-79-65 15:20:00 Test Item Value Reference Range Interpretation Comments UA Spec Grav (test code = UA Spec 1.008 1 Grav) [facility] WFXAN0003-66-94 15:20:00Slight *ABN*(05/23/18 10:20 AM) [facility] YRXCV4391-01-24 15:20:00Yellow *NA*(05/23/18 10:20 AM) [facility] PSML2312-37-18 15:20:694246.0[facility] CHEM 2018-05-23 15:20:00 Test Item Value Reference Range Interpretation Comments U Prot/Creat (test code = U 6.61 1 Prot/Creat) [facility] LUDI3385-50-08 15:20:0055.00[facility] CHEM 2018-05-23 15:20:44824.8[facility] AND FRRTG7337-77-65 15:20:00Small *ABN*(05/23/18 10:20 AM)[facility] VPSJY9619-06-77 15:20:00<1 [facility] VDWFS4660-08-45 15:20:009[facility] HURUC8972-88-74 15:20:00Negative (05/23/18 10:20 AM)[facility] LDIMB2753-01-50 15:20:00Trace *ABN*(05/23/18 10:20 AM)[facility] MFGAL7312-46-82 15:20:00Negative *NA*(05/23/18 10:20 AM)[facility] TPZYU5684-63-81 15:20:00 Test Item Value Reference Range Interpretation Comments UA pH (test code = UA pH) 6.5 1 5.0-8.0 [facility] WZZCT0043-19-59 15:20:00 Test Item Value Reference Range Interpretation Comments UA Spec Grav (test code = UA Spec 1.008 1 Grav) [facility] OZGVH1870-61-81 15:20:00Slight *ABN*(05/23/18 10:20 AM) [facility] GESDF7247-23-02 15:20:00Yellow *NA*(05/23/18 10:20 AM) [facility] DZAA3175-33-65 15:20:282112.0[facility] CHEM 2018-05-23 15:20:00 Test Item Value Reference Range Interpretation Comments U Prot/Creat (test code = U 6.61 1 Prot/Creat) [facility] DTDK6901-15-02 15:20:0055.00[facility] CHEM 2018-05-23 15:20:59910.8[facility] HermannANEMIA RIQTI2720-25-08 14:55:0035 [facility]annANEMIA ZRDHK1295-91-75 14:55:60440Nycxpihl HermannANEMIA STUDY 2018-05-23 14:55:92239Hoczumzf HermannANEMIA OXIVQ4732-65-42 14:55:0097[facility]annANEMIA JXKLN2371-39-09 14:55:36636Fnosrlxw HermannCHEM BCBCI2409-35-84 14:55:008.0[facility]annCHEM BQERE4332-03-12 14:55:002.5[facility]annCHEM JDWXJ4830-05-99 14:55:0026.3[facility]annCHEM IVIRL5231-23-11 14:55:003.5 [facility]annCHE[facility] FRQKF1092-21-71 14:55:007[facility]annCHEM PANEL 2018-05-23 14:55:0080[facility]annCHEM LENEG5924-86-72 14:55:000.4[facility]annCHEM ECVED8864-74-97 14:55:004.3[facility]annCHEM ALHIU4748-34-79 14:55:0022[facility]annCHEM KOIAE2452-29-62 14:55:008.8[facility]annCHEM MSADZ1701-46-36 14:55:008.1[facility]annCHEM GTMQS4204-96-39 14:55:0012 [facility]annCHEM WJWCN6420-46-46 14:55:0026[facility]annCHEM PANEL 2018-05-23 14:55:0097[facility]annCHEM JLXYZ5447-44-91 14:55:003.8[facility]annCHEM LKZRS3424-95-38 14:55:008.22[facility]annCHEM SCUJS0527-41-68 14:55:51552Hqrjdysc HermannCHEM WMMKQ5153-70-35 14:55:0059[facility]annCHEM QWEGS3528-88-00 14:55:0098[facility]annCHEM XDPOZ6161-69-56 14:55:003.8 [facility]annCHE[facility] QKKKE5291-57-05 14:55:00 Test Item Value Reference Range Interpretation Comments A/G Ratio (test code = A/G Ratio) 1.1 1 0.7-1.6 [facility]annCHE[facility] DNICB4130-56-86 14:55:0016.8[facility]annCHEM PANEL 2018-05-23 14:55:00 Test Item Value Reference Range Interpretation Comments B/C Ratio (test code = B/C Ratio) 7 1 04-02 [facility] GMIXUV6559-64-35 14:55:00Negative (05/23/18 9:55 AM)[facility] WZCCCJ4789-07-89 14:55:00Negative (05/23/18 9:55 AM)[facility] ZUDNLA3854-82-98 14:55:00Positive *ABN*(05/23/18 9:55 AM)[facility] CCYLJK0135-66-62 14:55:00Negative (05/23/18 9:55 AM)[facility] QYRPDM2779-19-55 14:55:00Negative (05/23/18 9:55 AM)[facility] SCREEN 2018-05-23 14:55:00See Note (05/23/18 9:55 AM)[facility] S[facility] 2018-05-23 14:55:00Negative (05/23/18 9:55 AM)[facility] 2018-05-23 14:55:00Negative (05/23/18 9:55 AM)[facility] 2018-05-23 14:55:00Negative (05/23/18 9:55 AM)[facility] 2018-05-23 14:55:00Positive *ABN*(05/23/18 9:55 AM)[facility]CREEN 2018-05-23 14:55:00See Note 2(05/23/18 9:55 AM)[facility]CREEN 2018-05-23 14:55:00See Note 1(05/23/18 9:55 AM)[facility]annHEMATOLOGY 2018-05-23 14:55:000.3[facility] WounanmLJBNRYUGEV3750-40-90 14:55:000.1[facility] AqobvtxUEZJZNXOCN9785-47-56 14:55:003.9[facility] MhxwyskOHHQUWNHGH7746-99-73 14:55:001.3[facility] AoyeqxxXRGHMEDYNM5239-33-61 14:55:000.5[facility] JRRPESLIFR0477-25-76 14:55:000.9[facility] AbwrfubASXFKRHQWA7730-05-39 14:55:007.7 [facility] ZcvckzhFRYXBQYOIG7138-72-41 14:55:004.3[facility]annHEMATOLOGY 2018-05-23 14:55:0022.0[facility] GlyywwaKLOETBWRZX6052-29-02 14:55:0065.1[facility] DekmnydAILPXWASVD5178-16-80 14:55:00 Test Item Value Reference Range Interpretation Comments INR (test code = INR) 1.06 1 0.85-1.17 [facility] BztyhwnGQEORBNFPZ2145-39-95 14:55:00 Test Item Value Reference Range Interpretation Comments PT (test code = PT) 13.8 s 12.0-14.7 [facility] KyrnzcjCSKOYXELPJ5021-33-01 14:55:00 Test Item Value Reference Range Interpretation Comments PTT (test code = PTT) 35.0 s 22.9-35.8 [facility] XrmhssdHORZLHITKM5974-31-51 14:55:0018.1[facility] HermannHEMATOLOGY 2018-05-23 14:55:008.0[facility] NtrvebeHFYJNXVZYC7448-97-25 14:55:16873Qrxgshwj SsdoskuJOLKAQQRTM4452-96-31 14:55:0033.3[facility] EeacygqKVFHLLEYJB9906-03-29 14:55:004.54[facility] ZplgxlxJXMRRLYMLG5141-13-52 14:55:006.1[facility] YMZLJJNIEC9327-65-98 14:55:0080.9[facility] RedivlyYFIUJHVQTU4622-81-14 14:55:00 36.7[facility] VvpkcfiVQQPPCXJSZ4650-37-34 14:55:00 Test Item Value Reference Range Interpretation Comments MCH (test code = MCH) 27.0 pg 27.0-31.0 [facility] GdpdtfqVKDFRMUXEF3901-64-38 14:55:0012.2[facility] HermannIMMUNOLOGY 2018-05-23 14:55:00>8.0[facility] SfciaerHBKWRQGMFM7170-93-53 14:55:00<0.91 [facility] NeusndoBRLGEURHLE5757-29-19 14:55:00Non-Reactive *NA*(05/23/18 9:55 AM) [facility] UfryrlaGGZZCVTBWZ0289-39-28 14:55:00Negative (05/23/18 9:55 AM)[facility] YymovgiNXTTYXIMHX2702-29-87 14:55:0018.2[facility] IyclpvvRCDGROBKYF3678-65-47 14:55:007.8[facility] WnmaljwBETSDPSJVP9244-44-29 14:55:009.5[facility] LYCUNHINMT7936-68-32 14:55:0060.9[facility] MicbtyxCGODUHNRNP5459-36-15 14:55:00 3.6[facility] ZhlbhukCNVOLRTMAO4250-97-47 14:55:001.47[facility] HermannIMMUNOLOGY 2018-05-23 14:55:008.1[facility] TkclvdcNBKLQVIQAZ9094-22-03 14:55:000.77[facility] AgsfhpxYQVUCNLNSU8817-80-08 14:55:004.93[facility] LnvmfajWJCODADZER3186-01-76 14:55:000.29[facility] NtxjunuXWWGZBWUNL4052-84-51 14:55:000.63[facility] JQTGEDQSNG8760-61-14 14:55:002.18[facility] NsdneilGQZNYYLCRK5396-87-22 14:55:00 89.85[facility] YozvoncVQHAQXPHCM3225-55-39 14:55:40278.11[facility] ZWQAUCOJLO5977-62-54 14:55:00>8.0[facility] AxsdpbgOQAKSEXKPL5828-93-08 14:55:00<0.2[facility] NwtgonpWWIEOENAHJ5635-67-00 14:55:000.2[facility] CAHICWTIVU9529-89-69 14:55:00Reactive *ABN*(05/23/18 9:55 AM)[facility] HMMXZWCOJR3747-37-60 14:55:00>8.0[facility] OzolmrkUKVPTYPFDZ1317-38-62 14:55:004.5[facility] RjrpwhtLHRTHBHSUJ8045-12-57 14:55:00Negative *NA*(05/23/18 9:55 AM)[facility] KrkjncgZSSQTKZXTV3694-53-98 14:55:00<0.2[facility] XZAQJEAPXN5541-72-19 14:55:00Negative *NA*(05/23/18 9:55 AM)[facility] EHYZIIAXOO7905-17-08 14:55:00Negative *NA*(05/23/18 9:55 AM)[facility] RBKYCMYZBO3602-11-01 14:55:00Negative *NA*(05/23/18 9:55 AM)[facility] GIELIU6526-44-64 14:55:00 Test Item Value Reference Range Interpretation Comments VLDL (test code = VLDL) 30 1 [facility] EclmyxzJBCKVS4694-94-69 14:55:0074[facility] AtebjahSBWWBS6852-75-80 14:55:96361Vovhcurf RklnnuqKDKLZU8933-79-98 14:55:0072[facility] HermannLIPIDS 2018-05-23 14:55:14797Glylguwr QcvezqbODCOVY5871-71-67 14:55:00 Test Item Value Reference Range Interpretation Comments CHD Risk (test code = CHD Risk) 2.44 1 4.00-7.30 [facility] HermannPARATHYROID CDAYZUR0400-11-79 14:55:80841.0[facility] SPECIAL PERUOLEOH6501-11-21 14:55:000.46[facility]annSPECIAL CHEMISTRY 2018-05-23 14:55:004.9[facility] HermannANEMIA KFYJR8426-41-29 14:55:0035[facility]annANEMIA FCEVA7505-20-74 14:55:27713Qysnsldb HermannANEMIA RTQPI7381-91-57 14:55:56409Gqhlaqsu HermannANEMIA ZFXCW6266-24-24 14:55:0097[facility] ANEMIA FJQZK4848-95-46 14:55:67603Iduktxsl HermannCHEM OGWYL9704-76-27 14:55:00 8.0[facility] HermannCHEM LLLIG1646-55-17 14:55:002.5[facility] HermannCHEM PANEL 2018-05-23 14:55:0026.3[facility] HermannCHEM QWMAO4462-56-54 14:55:003.5[facility] HermannCHEM BMOPC0720-81-31 14:55:007[facility] HermannCHEM KIPNV8200-29-50 14:55:0080[facility]annCHEM LNJVF0631-51-25 14:55:000.4[facility] HermannCHEM JNZEL9577-00-90 14:55:004.3[facility]annCHEM FKJSG1061-84-36 14:55:0022 [facility]annCHEM HPHRP7474-58-09 14:55:008.8[facility] HermannCHEM PANEL 2018-05-23 14:55:008.1[facility] HermannCHEM MLDUL6059-10-98 14:55:0012[facility]annCHEM CVUHI9621-48-27 14:55:0026[facility]annCHEM CGSRJ6731-04-05 14:55:0097[facility]annCHEM IYYKC2371-39-20 14:55:003.8[facility] HermannCHEM OFCGL9166-20-84 14:55:008.22[facility] HermannCHEM QUZIS4324-79-02 14:55:06520 [facility]annCHEM RGHLS6633-01-95 14:55:0059[facility]annCHEM PANEL 2018-05-23 14:55:0098[facility] HermannCHEM VIPWK3199-80-80 14:55:003.8[facility] HermannCHEM RISEA6274-85-89 14:55:00 Test Item Value Reference Range Interpretation Comments A/G Ratio (test code = A/G Ratio) 1.1 1 0.7-1.6 [facility]annCHEM PFARP4412-76-86 14:55:0016.8[facility]annCHEM PANEL 2018-05-23 14:55:00 Test Item Value Reference Range Interpretation Comments B/C Ratio (test code = B/C Ratio) 7 1 6-25 [facility]DR[facility] HRNHFG4096-83-28 14:55:00Negative (05/23/18 9:55 AM)[facility] AHAAXJ9438-46-00 14:55:00Negative (05/23/18 9:55 AM)[facility] TDPTZH6219-26-15 14:55:00Positive *ABN*(05/23/18 9:55 AM)[facility] MHNWXU0447-01-29 14:55:00Negative (05/23/18 9:55 AM)[facility]annDR[facility] UDLURJ7551-02-47 14:55:00Negative (05/23/18 9:55 AM)[facility]annDRUG SCREEN 2018-05-23 14:55:00See Note (05/23/18 9:55 AM)[facility]annDR[facility] SCREEN 2018-05-23 14:55:00Negative (05/23/18 9:55 AM)[facility]annDR[facility] SCREEN 2018-05-23 14:55:00Negative (05/23/18 9:55 AM)[facility]annDR[facility] SCREEN 2018-05-23 14:55:00Negative (05/23/18 9:55 AM)[facility]annDR[facility] SCREEN 2018-05-23 14:55:00Positive *ABN*(05/23/18 9:55 AM)[facility]annDRUG SCREEN 2018-05-23 14:55:00See Note 2(05/23/18 9:55 AM)[facility]annDRUG SCREEN 2018-05-23 14:55:00See Note 1(05/23/18 9:55 AM)[facility] HermannHEMATOLOGY 2018-05-23 14:55:000.3[facility] ZtqjdleKHORGJGDCW5754-17-10 14:55:000.1[facility] FnbpawfUGTJUMOQML3642-03-05 14:55:003.9[facility] UtjvsyoNZUMNYZGJD6685-52-52 14:55:001.3[facility] PwbbisnFPKXXPITRH6316-88-19 14:55:000.5[facility] HOSTDKZLBO3230-71-68 14:55:000.9[facility] GystjviARBXYHJKEL5872-67-29 14:55:007.7 [facility] YgcmeuyYGCSGARADW2191-83-88 14:55:004.3[facility] HermannHEMATOLOGY 2018-05-23 14:55:0022.0[facility] GncbtgsUMIFJVHJUC4807-73-36 14:55:0065.1[facility] JzbsxjyNAPDQYYPWK6356-55-02 14:55:00 Test Item Value Reference Range Interpretation Comments INR (test code = INR) 1.06 1 0.85-1.17 [facility] IzhdhkzCNBPPBICWD3193-89-21 14:55:00 Test Item Value Reference Range Interpretation Comments PT (test code = PT) 13.8 s 12.0-14.7 [facility] ZxccojbJTCYMYRRIA6634-00-81 14:55:00 Test Item Value Reference Range Interpretation Comments PTT (test code = PTT) 35.0 s 22.9-35.8 [facility] VtrkxxrEXRYPPVOWH7689-28-67 14:55:0018.1[facility] HermannHEMATOLOGY 2018-05-23 14:55:008.0[facility] IjazlhsSQUGQACQEF3348-04-76 14:55:99639Vvtwkqft ErwxpabSGOPTAVGJV0804-68-98 14:55:0033.3[facility] WvcyeglBXQAOVWJVZ4874-72-16 14:55:004.54[facility] QghlgsoXHLXLNDZWL5741-67-19 14:55:006.1[facility] REIBQCOEFY2177-76-01 14:55:0080.9[facility] QamxegtGZEPAFKJJY4928-64-95 14:55:00 36.7[facility] YxgzrmxLINIMVSCNW1029-54-94 14:55:00 Test Item Value Reference Range Interpretation Comments MCH (test code = MCH) 27.0 pg 27.0-31.0 [facility] LvzlwnwYSJTUUFMQN3971-70-58 14:55:0012.2[facility] HermannIMMUNOLOGY 2018-05-23 14:55:00>8.0[facility] AhukfppUVCODTUWWM7287-78-73 14:55:00<0.91 [facility] DqynqlhXCKYJZLZQX2413-15-28 14:55:00Non-Reactive *NA*(05/23/18 9:55 AM) [facility] WhydcgiTPKLAQBSXZ3641-32-15 14:55:00Negative (05/23/18 9:55 AM)[facility] LqkcdbpKYPWHJSGUJ5609-40-57 14:55:0018.2[facility] InquzzzTQZMKKKGSV9254-52-44 14:55:007.8[facility] HxeystxGFKSKJILZV9741-86-57 14:55:009.5[facility] LIHYRMZZDF0498-97-37 14:55:0060.9[facility] CsgunelXDYZRMFCBC0331-26-49 14:55:00 3.6[facility] YhgmakpRDXESQBRTC4743-56-87 14:55:001.47[facility] HermannIMMUNOLOGY 2018-05-23 14:55:008.1[facility] IyhksrsNROOIBMIWK3963-73-73 14:55:000.77[facility] PitwdyoHFAXWARFXJ2587-59-15 14:55:004.93[facility] XkbnprdEBFMYXYWJC4362-28-17 14:55:000.29[facility] PahxypbAKRFVFUURN2065-13-88 14:55:000.63[facility] CNZMMCOYNU6945-26-71 14:55:002.18[facility] EqbhwswATKEITDSDU4181-49-82 14:55:00 89.85[facility] AezbjfdLAUGCXGPZB0398-02-82 14:55:09107.11[facility] UYCCUPRMDX5802-06-47 14:55:00>8.0[facility] ByrczecTBXFKNIJJF3003-01-93 14:55:00<0.2[facility] YcozwgrCPQOABYQPR5008-12-99 14:55:000.2[facility] NCESQVUUPY2040-69-12 14:55:00Reactive *ABN*(05/23/18 9:55 AM)[facility] PSZNVFXLGB0708-98-29 14:55:00>8.0[facility] UfaqaqdSZCYPNURVI0355-89-08 14:55:004.5[facility] WnrcngqRFUURKLEKZ9697-81-67 14:55:00Negative *NA*(05/23/18 9:55 AM)[facility] OrfcnssOUICTVCZWP3035-86-33 14:55:00<0.2[facility] BDVVZZTCIK9746-46-67 14:55:00Negative *NA*(05/23/18 9:55 AM)[facility] TSGLIMNVGT4891-77-60 14:55:00Negative *NA*(05/23/18 9:55 AM)[facility] VSHAZMMEIX3514-42-78 14:55:00Negative *NA*(05/23/18 9:55 AM)[facility] RCWVLV2618-27-86 14:55:00 Test Item Value Reference Range Interpretation Comments VLDL (test code = VLDL) 30 1 [facility] ElsbgoxJJDPRS6665-19-65 14:55:0074[facility] AkpxhygXVOQDF0029-97-88 14:55:56686Aowsufir SsjeiyoARERSN7692-78-23 14:55:0072[facility] HermannLIPIDS 2018-05-23 14:55:50671Jrgjtobc EzkxdgmLRQLPH2500-21-36 14:55:00 Test Item Value Reference Range Interpretation Comments CHD Risk (test code = CHD Risk) 2.44 1 4.00-7.30 [facility] HermannPARATHYROID WEQAOOL8998-01-89 14:55:46310.0[facility] SPECIAL HCIXZEVIG3884-76-53 14:55:000.46[facility] HermannSPECIAL CHEMISTRY 2018-05-23 14:55:004.9[facility] HermannCARDIAC CCZPCMA9013-78-84 12:03:000.04 [facility]annCARDIAC NZDATRZ4091-22-20 12:03:0026[facility]annCARDIAC HRSQAOE7482-31-66 12:03:000.04[facility]annCARDIAC WATBCMD5064-54-64 12:03:00 26[facility]annCARDIAC ZRMOEGD1171-82-81 07:54:000.02[facility]annCARDIAC AHOHHMY0916-51-19 07:54:0031[facility] HermannCHEM VCFMM5569-56-34 07:54:001.9 [facility]annCHEM QNFQS7826-58-99 07:54:00 Test Item Value Reference Range Interpretation Comments B/C Ratio (test code = B/C Ratio) 6 1 6-25 [facility]annCHEM QLKWL2640-42-98 07:54:003.3[facility] HermannCHEM PANEL 2018-04-15 07:54:00 Test Item Value Reference Range Interpretation Comments A/G Ratio (test code = A/G Ratio) 0.9 1 0.7-1.6 [facility]annCHEM OFANK2246-36-68 07:54:007.1[facility]annCHEM PANEL 2018-04-15 07:54:003.8[facility]annCHEM IQJXX3248-21-68 07:54:0018[facility]annCHEM DUOYF0575-93-40 07:54:0014[facility]annCHEM BXPNQ1132-56-72 07:54:0082[facility]annCHEM LPIWE4533-50-96 07:54:000.5[facility]annCHEM DSGHB6894-30-60 07:54:0010[facility]annCHEM NGGXZ1197-75-43 07:54:003.2 [facility]annCHEM PLFYY4251-73-73 07:54:85443Wssiitto HermannCHEM PANEL 2018-04-15 07:54:0095[facility] HermannCHEM XOBEI5413-64-17 07:54:0034[facility] HermannCHEM ABSWW1580-11-62 07:54:005.83[facility] HermannCHEM AKIHX4302-58-81 07:54:98291Kpshsomn HermannCHEM IDAMW6905-11-69 07:54:0023[facility] HermannCHEM JCWBX9799-14-29 07:54:0015.2[facility] HermannCHEM NSYNB3339-97-05 07:54:008.5 [facility]annCHEM QHMFN6786-46-08 07:54:004.2[facility] HermannHEMATOLOGY 2018-04-15 07:54:001.5[facility] OvzdrioYTPSYEKBOZ5649-44-47 07:54:000.5[facility] ErmdoigZJKTJYKIQK6116-22-62 07:54:001.0[facility] VscyffwHNEJMLFODZ0771-15-85 07:54:003.5[facility] JuxwzyiNRSHDYGXLJ7594-81-96 07:54:000.1[facility] MJYMTMVHTI4733-56-82 07:54:000.2[facility] OckwawyLSGSSGTEWJ1971-99-94 07:54:00 26.7[facility] OcnukmvVKFXZYMBCP5811-24-93 07:54:0061.0[facility] HermannHEMATOLOGY 2018-04-15 07:54:008.0[facility] EyiznrgUDLCBAENGA4199-04-07 07:54:003.3[facility] FdbrrhcARMGANXFGB8860-32-19 07:54:005.7[facility] AoizixdYCORKSJNSD7430-16-62 07:54:004.48[facility] ColahloVHIEGNMYAM4893-99-97 07:54:0017.7[facility] XVLNAJVZNP0354-85-79 07:54:51027Ddkqlsxc WmdlmjhGMTWMNGQSZ8958-26-96 07:54:007.2 [facility] UreeqhqFIDQUQKTIK4103-59-37 07:54:0011.6[facility] HermannHEMATOLOGY 2018-04-15 07:54:0035.5[facility] UtbbagxLSCWWHCJKM9012-88-16 07:54:0032.6[facility] YliuyatKQKKJESHLW8938-66-15 07:54:0079.2[facility] PbdngagDMDIPCSDNC4713-96-71 07:54:00 Test Item Value Reference Range Interpretation Comments MCH (test code = MCH) 25.8 pg 27.0-31.0 [facility]annCARDIAC WUNEWVX9918-35-88 07:54:000.02[facility] HermannCARDIAC WCXTJBD2389-18-48 07:54:0031[facility] HermannCHEM AYOEC4739-53-17 07:54:001.9 [facility]annCHEM IXWLF8535-29-93 07:54:00 Test Item Value Reference Range Interpretation Comments B/C Ratio (test code = B/C Ratio) 6 1 6-25 [facility]annCHEM SDCPI8883-81-34 07:54:003.3[facility] HermannCHEM PANEL 2018-04-15 07:54:00 Test Item Value Reference Range Interpretation Comments A/G Ratio (test code = A/G Ratio) 0.9 1 0.7-1.6 [facility]annCHEM BLKMR0420-17-85 07:54:007.1[facility] HermannCHEM PANEL 2018-04-15 07:54:003.8[facility] HermannCHEM GXGNH9992-26-95 07:54:0018[facility] HermannCHEM NJQCH1508-28-32 07:54:0014[facility] HermannCHEM AOKYV7150-32-38 07:54:0082[facility] HermannCHEM FPOPR1864-04-87 07:54:000.5[facility] HermannCHEM VUJVT9968-21-57 07:54:0010[facility]annCHEM HZQKT8569-17-99 07:54:003.2 [facility]annCHEM PBGGO0401-04-32 07:54:09079Cqvwrrye HermannCHEM PANEL 2018-04-15 07:54:0095[facility] HermannCHEM CMVQW9487-19-15 07:54:0034[facility] HermannCHEM MDWXW8856-17-94 07:54:005.83[facility] HermannCHEM NBIKE3527-59-75 07:54:58178Nvtfafat HermannCHEM PBGLJ3858-56-51 07:54:0023[facility] HermannCHEM REZDS9296-36-28 07:54:0015.2[facility] HermannCHEM LEGLZ7435-66-36 07:54:008.5 [facility]annCHEM LMHOZ6967-44-47 07:54:004.2[facility] HermannHEMATOLOGY 2018-04-15 07:54:001.5[facility] QtaahqmGFDBTSDQRS6788-96-28 07:54:000.5[facility] NjghhvdAMDNBOGRNE7934-18-82 07:54:001.0[facility] PkwlmbjJPRCEJVHYY1918-96-23 07:54:003.5[facility] TbezhqsCOHBIFOWPB5430-34-97 07:54:000.1[facility] KPXZTSRDCG1545-71-79 07:54:000.2[facility] UbnbkspFHZRXSZGXW7145-84-30 07:54:00 26.7[facility] WozglsxUYPKRWTUGM3482-34-25 07:54:0061.0[facility] HermannHEMATOLOGY 2018-04-15 07:54:008.0[facility] JijcfvjTTVFXETAQA1974-41-03 07:54:003.3[facility] TefmbpwKATUNXEXKS8594-18-16 07:54:005.7[facility] GgcleevYYJDZXPTTY0750-12-33 07:54:004.48[facility] DwdbweeIBHYQPLLFU1311-10-47 07:54:0017.7[facility] EATHQDBPGW2294-70-71 07:54:95074Pioobhtx OribjfyZDGNJCSLFH7428-24-77 07:54:007.2 [facility] YtjfthtNYPZHALKFU2244-56-05 07:54:0011.6[facility] HermannHEMATOLOGY 2018-04-15 07:54:0035.5[facility] RmxsbjeJLUTNJGYOK2406-52-81 07:54:0032.6[facility] QccdkyfJANTDUWZFJ9600-98-71 07:54:0079.2[facility] EnxcfwaJIJUBJKJQA7277-04-12 07:54:00 Test Item Value Reference Range Interpretation Comments MCH (test code = MCH) 25.8 pg 27.0-31.0 [facility]annCARDIAC BEXFBPB5648-28-24 02:58:00<0.02[facility] CARDIAC VRJKPAX9226-42-99 02:58:00<0.02[facility] HermannCARDIAC ENZYMES 2018-04-15 00:12:4317227Eibrddlm HermannCARDIAC YQPJKUW0276-56-08 00:12:0037 [facility]annCARDIAC FQAAJGC4296-31-07 00:12:001.0[facility] HermannCARDIAC CXLFCGV3277-31-60 00:12:00 Test Item Value Reference Range Interpretation Comments CK MB Index (test 2.7 1 See_Comment [Automate d message] The code = CK MB Index) system w [facility] generated this result transmit emerson reference range : <=2.5. The reference range was not used to interpr et this result as erinn l/abnormal. [facility]annCHEM IKTAI0146-20-39 00:12:0012[facility]annCHEM PANEL 2018-04-15 00:12:0088[facility]annCHEM QDDGV1188-20-16 00:12:0014[facility]annCHEM UFFZT9402-93-14 00:12:007.4[facility]annCHEM WPYJF9774-12-66 00:12:000.5[facility]annCHEM VLJDA3175-31-17 00:12:0017[facility]annCHEM GSKQJ5413-04-89 00:12:003.2[facility]annCHEM XJGSO4461-32-72 00:12:008.1 [facility]annCHE[facility] ZVKWE3916-77-38 00:12:08930Sfofvpub HermannCHEM PANEL 2018-04-15 00:12:0026[facility]annCHEM FKMBW8655-05-75 00:12:004.94[facility]annCHEM CJFXE4176-26-65 00:12:0024[facility]annCHEM BQVLA5327-96-02 00:12:96556Hjexkuei HermannCHEM AMKGB5477-21-80 00:12:00 Test Item Value Reference Range Interpretation Comments B/C Ratio (test code = B/C Ratio) 5 1 6-25 [facility] XBWPT5345-25-30 00:12:0012.3[facility]annCHEM PANEL 2018-04-15 00:12:00 Test Item Value Reference Range Interpretation Comments A/G Ratio (test code = A/G Ratio) 0.8 1 0.7-1.6 [facility] YTBGQ4043-82-43 00:12:004.2[facility]annCHEM PANEL 2018-04-15 00:12:00246Icnkmjyo HermannCHEM XPJSD2454-76-21 00:12:003.3[facility] MbkwuziRLMARBVJJI2553-68-48 00:12:005.0[facility] RlgdvjsGRVNUOOIRZ9884-50-91 00:12:0017.6[facility] VrwunjyYETEIDQWDR2415-75-93 00:12:0033.5[facility] PQCQDFNSMQ3072-25-98 00:12:007.3[facility] QzcermzGYDIQQVIJE1382-73-72 00:12:00 4.25[facility] CftptxnLUPTCHJPIB3100-00-37 00:12:00 Test Item Value Reference Range Interpretation Comments MCH (test code = MCH) 26.0 pg 27.0-31.0 [facility] CxpwencNZXMNFCXSE5424-37-10 00:12:0077.5[facility]annHEMATOLOGY 2018-04-15 00:12:0033.0[facility] FzurzfcUGSKTFBQRP0355-65-31 00:12:0011.1[facility] PbqngwfFNKOQPWCHS1477-34-63 00:12:58669Vewdftpk UcoeeojJRQUPCUGZI3353-10-80 00:12:003.6[facility] EcakybaOZYGNQWPCT9605-69-38 00:12:000.9[facility] ETOVCQJHKX8909-98-25 00:12:000.1[facility] KnwqtoqHIYMYXWVUE7769-72-95 00:12:000.1 [facility] LpmizeuEDAASJWPZL9771-51-22 00:12:000.4[facility]annHEMATOLOGY 2018-04-15 00:12:001.0[facility] DhahkwmIISEWICWDA0435-03-85 00:12:002.0[facility] FtvvwlnPIEJYTJZEE4099-52-32 00:12:001+ *ABN*(04/14/18 7:12 PM)[facility] DCJLOXHWFI1779-51-51 00:12:00Normal (04/14/18 7:12 PM)[facility]annHEMATOLOGY 2018-04-15 00:12:0017.2[facility] OtvnottKTXDXCYUUV0164-82-22 00:12:0072.3[facility] NheilybNQDWPRQLQT8503-80-49 00:12:007.5[facility]annCARDIAC RRNYWYG2427-46-98 00:12:1654861Ubykiepb HermannCARDIAC BALLKSY5795-63-45 00:12:0037[facility]annCARDIAC UFZIOKD5771-66-94 00:12:001.0[facility]annCARDIAC ENZYMES 2018-04-15 00:12:00 Test Item Value Reference Range Interpretation Comments CK MB Index (test 2.7 1 See_Comment [Automate d message] The code = CK MB Index) system w [facility] generated this result transmit emerson reference range : <=2.5. The reference range was not used to interpr et this result as erinn l/abnormal. [facility]annCHEM DXAQD9617-06-66 00:12:0012[facility]annCHEM PANEL 2018-04-15 00:12:0088[facility]annCHEM VZJGI6713-21-40 00:12:0014[facility]annCHEM DXCCY6154-92-93 00:12:007.4[facility]annCHEM BSTKH0601-69-43 00:12:000.5[facility]annCHEM QUCHR9737-21-02 00:12:0017[facility]annCHEM UJFZS2293-74-82 00:12:003.2[facility]annCHEM OFARK1662-87-82 00:12:008.1 [facility]annCHEM MRHSJ6164-01-52 00:12:38262Izaixxvw HermannCHEM PANEL 2018-04-15 00:12:0026[facility]annCHEM PQYML6512-13-58 00:12:004.94[facility]annCHEM XTGSJ6047-32-82 00:12:0024[facility]annCHEM VGKDE9304-72-03 00:12:87201Vpjirnsb HermannCHEM GMIUV5056-71-82 00:12:00 Test Item Value Reference Range Interpretation Comments B/C Ratio (test code = B/C Ratio) 5 1 6-25 [facility]CHE[facility] MYTNF5177-11-47 00:12:0012.3[facility]annCHEM PANEL 2018-04-15 00:12:00 Test Item Value Reference Range Interpretation Comments A/G Ratio (test code = A/G Ratio) 0.8 1 0.7-1.6 [facility]annCHEM BNLEK4685-73-38 00:12:004.2[facility]annCHEM PANEL 2018-04-15 00:12:22923Aoazksux HermannCHEM OAACP0353-55-48 00:12:003.3[facility] RhklgnjFHSCJJIHLP6308-94-82 00:12:005.0[facility] PaxwcrtNPGVMIGPPO3763-10-12 00:12:0017.6[facility] OikjwwbJSFBTOJBCS9609-93-96 00:12:0033.5[facility] TLLWDDCUBA0311-08-00 00:12:007.3[facility] NqivjcdIYJGHEWQSK0978-20-92 00:12:00 4.25[facility] DaiwahzPMCHZJWSQT4241-52-67 00:12:00 Test Item Value Reference Range Interpretation Comments MCH (test code = MCH) 26.0 pg 27.0-31.0 [facility] RqcdxsqSZARYPJSWE2272-07-21 00:12:0077.5[facility] HermannHEMATOLOGY 2018-04-15 00:12:0033.0[facility] UpjxavxTDENQHUOCU3499-41-80 00:12:0011.1[facility] WcacwdiAOUZESUOSL3302-49-99 00:12:62779Mgrwtuox IcbrglmZBIDACUWKT0420-87-98 00:12:003.6[facility] KlmpjrjEHEXIIBPZW5424-24-54 00:12:000.9[facility] NMFBKVTCUU3688-01-41 00:12:000.1[facility] CmbcjkmPWXUQVSSYK1937-68-87 00:12:000.1 [facility] CwpbgawNFTACQYUXZ8078-62-76 00:12:000.4[facility]annHEMATOLOGY 2018-04-15 00:12:001.0[facility] MscduwqGEPBZNESIL4620-23-64 00:12:002.0[facility] YfjyeagAAKSTHOWRO4484-12-72 00:12:001+ *ABN*(04/14/18 7:12 PM)[facility] HYFETZXPEJ7005-83-12 00:12:00Normal (04/14/18 7:12 PM)[facility]annHEMATOLOGY 2018-04-15 00:12:0017.2[facility] RbdonxfPZQTEAIQQW9668-48-46 00:12:0072.3[facility] EvultyiJKVNJMHEAF2807-92-34 00:12:007.5[facility] UmmlfguPYEEWFBWLN0574-95-36 12:10:0017.4[facility] VhkddntMQHEDRZRIL0652-12-53 12:10:0017.4[facility] CHEM FPNBH3984-32-69 08:01:002.1[facility] HermannCHEM FGKQI1934-74-27 08:01:005.6 [facility] VkywxebOXFTGDYILOMS3880-54-52 08:01:0017.3[facility] HermannELECTROLYTES 2018-03-19 08:01:005[facility] SrfmgmsHXVWRDIIRZYR6863-33-73 08:01:0094[facility] XeksbzoNCSRJLWAUOIG9930-11-93 08:01:0024[facility] PcbnwkgOUFLQMFNOKJD0402-72-31 08:01:008.3[facility] JuadnakHQGQRISDBLRO6230-60-63 08:01:93517Wettmwsq [place] BAYQERMUHBKS9433-95-29 08:01:004.3[facility] JqwcqaoWOAWOVDSCLPF3765-89-55 08:01:77710Rwszpykq BmunocgZFAMKFOSOUOF9669-58-62 08:01:0055[facility] MNUHDAQHFJJA3411-51-75 08:01:009.62[facility] RvplbzsXEDPWMWEQW4832-36-66 08:01:00 0.3[facility] OnsqtfoLDPIZZSQWC2052-87-38 08:01:0010.9[facility]ann[facility]MATOLOGY 2018-[facility]-19 08:01:0078.7[facility] YlqxabwBXRHYEISKS1626-09-85 08:01:008.8[facility] ZdyvxinBBUCHIZEPT3943-84-85 08:01:000.1[facility] DxnkqwpUATQCHJWHQ6709-32-37 08:01:000.9[facility] MhdyoqySPMNUUXTRP7942-51-97 08:01:001.3[facility] WIYHKWJMBI6171-73-02 08:01:001+ *ABN*(03/19/18 3:01 AM)[facility]Y 2018-03-19 08:01:006.5[facility] BgfnjliOPHCBCDCEC0595-13-44 08:01:000.7[facility] KsmgdmsSSNIEOGLIR2794-20-53 08:01:007.9[facility] NghtchtIXPXEDMHLC1588-67-37 08:01:76730Kyrblsxy VugdxkhLGPZBCCEPF4684-23-54 08:01:00 Test Item Value Reference Range Interpretation Comments MCH (test code = MCH) 26.4 pg 27.0-31.0 [facility] WtfwqxsZCIOGEPZKE9109-97-97 08:01:0015.4[facility]annHEMATOLOGY 2018-03-19 08:01:0034.2[facility] HwpmatsQXQLOFRAWB8256-96-76 08:01:002.99[facility] NgsnjvqRNKAEAGOXI9671-81-00 08:01:008.2[facility] EpkkgqiHBYTWJBUIV3371-08-56 08:01:0023.1[facility] YdbgurxZKSZPXKZQV9663-66-55 08:01:007.9[facility] WTIVOCSGFA7105-07-76 08:01:0077.1[facility]annCHEM JEMFY5468-25-33 08:01:00 2.1[facility]annCHEM TEGPB0140-27-81 08:01:005.6[facility] HermannELECTROLYTES 2018-03-19 08:01:0017.3[facility] KgyifvlAXZIAYEZZXCO5951-44-73 08:01:005[facility] HjnselyMCXYURAXJXNA0449-93-74 08:01:0094[facility] RbshkynKAUUCITGLNLW8389-48-86 08:01:0024[facility] AriuatcREXOZUBDDFOP2951-94-51 08:01:008.3[facility] XKBDJRNJZGDY0760-33-93 08:01:56859Cofttjbo BuwjoabJPTZMZKKBAJU5111-07-57 08:01:004.3[facility] SqmdcqqAIYKFNKFINTW9364-18-75 08:01:01135Khzqwtar [place] MPRQJFQTRQZN7427-55-12 08:01:0055[facility] KwqkrjyJROLCKSMISSL4175-08-59 08:01:00 9.62[facility] AelajhoPDWBMLGTFF1966-53-27 08:01:000.3[facility]annHEMATOLOGY 2018-03-19 08:01:0010.9[facility] QaxbfgwNRGLSKMLDW6497-98-83 08:01:0078.7[facility] BflhoesERFFWRLYEP0055-57-00 08:01:008.8[facility] UzelpudKBYWMMOONA3600-73-05 08:01:000.1[facility] KmkfbefPQFMOADNSM4963-79-60 08:01:000.9[facility] HLETMWGLEL9738-16-33 08:01:001.3[facility] ZkwmxqoUMYUVOOXRB0170-40-42 08:01:001+ *ABN*(03/19/18 3:01 AM)[facility] GtckzboOPTNHFHXVZ2722-49-70 08:01:006.5[facility] NbwvtpgVWUPLDTAIQ6233-10-10 08:01:000.7[facility] WspogeuCWXJNKNKAM8810-53-83 08:01:007.9[facility] UogbgtuHTFHTAMUUR2882-25-77 08:01:93537Solgggxk Marlo CHNYCKLMJE8533-54-16 08:01:00 Test Item Value Reference Range Interpretation Comments MCH (test code = MCH) 26.4 pg 27.0-31.0 [facility] NubtivlVXWCJUAXRN2776-46-69 08:01:0015.4[facility]annHEMATOLOGY 2018-03-19 08:01:0034.2[facility] PxziejgJPXNTTOXAX5637-88-01 08:01:002.99[facility] AiexsjvNERESABZNK2316-28-79 08:01:008.2[facility] NldverpAJAOCKPYQD3942-49-90 08:01:0023.1[facility] NidwwauMDWERXGFHW3548-58-36 08:01:007.9[facility] HFBVVXSXVA1891-26-98 08:01:0077.1[facility]annCHEM WFDCA0649-23-65 08:29:00 2.3[facility]annCHEM SHVWT3165-99-18 08:29:006[facility]annCHEM PANEL 2018-03-18 08:29:000.4[facility]annCHEM XFQHG9317-47-48 08:29:004.0[facility]annCHEM FKNNX5112-92-75 08:29:43785Hcyzpqjt HermannCHEM XSZJQ6700-88-93 08:29:0050[facility]annCHEM ICCHY3011-50-81 08:29:25134Quikpllo HermannCHEM JECTO5331-83-34 08:29:008.40[facility]annCHEM FRCPM8586-57-62 08:29:0097 [facility] HermannCHEM INOUM1036-67-90 08:29:17711Fatahwpr HermannCHEM PANEL 2018-03-18 08:29:002.7[facility]annCHEM DWYWQ5503-94-92 08:29:006.9[facility]annCHEM QNGDY5959-85-62 08:29:008.0[facility]annCHEM DATDA1591-05-55 08:29:0026[facility]annCHEM XKBYI6187-65-53 08:29:009[facility]annCHEM AIUPG7612-29-78 08:29:0012[facility]annCHEM VFJEV7428-84-47 08:29:00 Test Item Value Reference Range Interpretation Comments B/C Ratio (test code = B/C Ratio) 6 1 6-25 [facility] NNLFZ7987[facility]-08 08:29:0014.0[facility]annCHEM PANEL 2018-03-18 08:29:004.2[facility]annCHEM PVCXV1129-88-22 08:29:00 Test Item Value Reference Range Interpretation Comments A/G Ratio (test code = A/G Ratio) 0.6 1 0.7-1.6 [facility] ZSLZG9497-04-53 08:29:005.7[facility]annHEMATOLOGY 2018-03-18 08:29:00 Test Item Value Reference Range Interpretation Comments INR (test code = INR) 1.23 1 0.85-1.17 [facility]MhuelxdWVDANEQEBH6983-91-30 08:29:00 Test Item Value Reference Range Interpretation Comments PTT (test code = PTT) 42.0 [address] 22.9-35.8 [facility] CenterFtccwoiAINTMAJCLA1000-12-66 08:29:00 Test Item Value Reference Range Interpretation Comments PT (test code = PT) 15.6 s 12.0-14.7 [facility] TinviynJBSLTYBEFP6752-33-75 08:29:001+ *ABN*(03/18/18 3:29 AM)[facility] TidglhdNAMYBWAWUB5600-47-46 08:29:001.0[facility] EmmfcqzDRLMKFJJFX8063-11-16 08:29:000.1[facility] MvfweqpNOUZSVBSOQ3082-20-19 08:29:000.9[facility] RKRCJLROKZ8702-38-84 08:29:005.0[facility] GewxloyQJMLBVPUET9412-67-24 08:29:001.6 [facility] MsykmnxMICGBMSIEY9638-70-63 08:29:0013.3[facility]annHEMATOLOGY 2018-03-18 08:29:000.5[facility] CqewjhhRFDNVFPKVI2737-56-95 08:29:0013.9[facility] DlgtnslJEGHSRZJLE7176-33-92 08:29:0070.7[facility] JadlrblCSEYHKBXUP5348-19-23 08:29:88609Ybxeuifu RsuzdwbAJNEBXWQJF9296-64-24 08:29:007.9[facility] MAYTPQOPJT9241-10-78 08:29:0033.8[facility] SvigpqmOVFDFKYRQK4618-71-97 08:29:00 15.0[facility] PcobekgIRZSRBLSAY0135-24-96 08:29:0021.8[facility]annHEMATOLOGY 2018-03-18 08:29:0077.9[facility] WiyciexRXGMXOFDCI7084-88-01 08:29:00 Test Item Value Reference Range Interpretation Comments MCH (test code = MCH) 26.3 pg 27.0-31.0 [facility] ZkkvvjeRXZUVMLFET1059-01-08 08:29:002.80[facility]annHEMATOLOGY 2018-03-18 08:29:007.4[facility] DrmxyklSGZDILAROG7486-72-15 08:29:007.1[facility] HermannCHEM AWKVD3911-44-67 08:29:002.3[facility]annCHEM VMQJT4190-71-62 08:29:006[facility]annCHEM DEOZU1378-68-84 08:29:000.4[facility]annCHEM IJKQH9534-78-99 08:29:004.0[facility]annCHEM MKAAV7806-86-23 08:29:83685 [facility]annCHEM UOGJS3759-81-50 08:29:0050[facility]annCHEM PANEL 2018-03-18 08:29:86722Xjaohwiz HermannCHEM QRNWR1490-97-87 08:29:008.40[facility]annCHEM XUDVV3675-09-56 08:29:0097[facility]annCHEM TSZMG6015-54-53 08:29:08778Zytljtoo HermannCHEM SHZSE0293-75-33 08:29:002.7[facility]annCHEM XHWTE8844-92-17 08:29:006.9[facility] HermannCHEM NLBPI4167-94-75 08:29:008.0 [facility] HermannCHEM ZEYIH0547-24-10 08:29:0026[facility]annCHEM PANEL 2018-03-18 08:29:009[facility] HermannCHEM BELPR4101-06-30 08:29:0012[facility]annCHEM XONHU4272-72-54 08:29:00 Test Item Value Reference Range Interpretation Comments B/C Ratio (test code = B/C Ratio) 6 1 6-25 [facility] HermannCHEM IWSXR7355-16-95 08:29:0014.0[facility]annCHEM PANEL 2018-03-18 08:29:004.2[facility] HermannCHEM DCPAN2817-40-40 08:29:00 Test Item Value Reference Range Interpretation Comments A/G Ratio (test code = A/G Ratio) 0.6 1 0.7-1.6 [facility] HermannCHEM AFADE6399-53-91 08:29:005.7[facility]annHEMATOLOGY 2018-03-18 08:29:00 Test Item Value Reference Range Interpretation Comments INR (test code = INR) 1.23 1 0.85-1.17 [facility] CenterRemusoiOZZMVPNKTY0183-24-49 08:29:00 Test Item Value Reference Range Interpretation Comments PTT (test code = PTT) 42.0 s 22.9-35.8 [facility] CenterDvbqjtvEOEVLOJGVB0140-85-94 08:29:00 Test Item Value Reference Range Interpretation Comments PT (test code = PT) 15.6 s 12.0-14.7 [facility] EnqescwCTDFKALZFH4058-94-06 08:29:001+ *ABN*(03/18/18 3:29 AM)[facility] ZinzqkiWVWNPIJRHP4982-94-79 08:29:001.0[facility] PuekfeqTZDUATWTUK6675-22-30 08:29:000.1[facility] GjkxlphGGRFVFLCLY7849-60-07 08:29:000.9[facility] PJNFJDYBBS7075-03-94 08:29:005.0[facility] CzejtjxULSQYURXHD8978-45-53 08:29:001.6 [facility] VyxgquuYHPGBKOPCA4547-34-50 08:29:0013.3[facility]annHEMATOLOGY 2018-03-18 08:29:000.5[facility] MqgngksLWKPTXAVEE5802-22-79 08:29:0013.9[facility] GogrpujNUVAVTLJHT0665-67-10 08:29:0070.7[facility] MvubgcqFOOWIPWSIB0385-97-33 08:29:67347Qrswlsvu GwtqaqiDOCQCQGOIS9558-09-36 08:29:007.9[facility] QXPEOAKEFJ9181-46-95 08:29:0033.8[facility] YhgibrpWNMFNRJKOS5178-79-61 08:29:00 15.0[facility] IcqzqifZOXNZJHNWL0789-68-74 08:29:0021.8[facility]annHEMATOLOGY 2018-03-18 08:29:0077.9[facility] HiztfnuXNYZXUSDDR5261-52-80 08:29:00 Test Item Value Reference Range Interpretation Comments MCH (test code = MCH) 26.3 pg 27.0-31.0 [facility] KqeugkrMIYSXVXCHE4698-10-89 08:29:002.80[facility]annHEMATOLOGY 2018-03-18 08:29:007.4[facility] DnqggbzJHOHQLPBQI0784-42-69 08:29:007.1[facility] EytbehkJURHPGCEAM7923-40-85 21:57:0018.3[facility] MuzehkpHFMDAGVSLU9599-01-09 21:57:0018.3[facility] HermannCHEM LRBHI9570-82-70 13:00:000.3[facility] PJVBDCIFKQ2716-00-94 13:00:00Negative *NA*(03/17/18 8:00 AM)[facility]annCHEM UNFWH6244-63-42 13:00:000.3[facility] RtjuepbJRJYVCVMDP3922-00-54 13:00:00Negative *NA*(03/17/18 8:00 AM)[facility]annCHEM YOKCC9849-66-04 11:05:000.3[facility] HermannCHEM TSURD7442-78-55 11:05:000.3[facility] HermannCARDIAC UQWAQZL8826-93-43 08:09:00 Test Item Value Reference Range Interpretation Comments CK MB Index (test 1.2 1 See_Comment [Automate d message] The code = CK MB Index) system w [facility] generated this result transmit emerson reference range : <=2.5. The reference range was not used to interpr et this result as erinn l/abnormal. [facility]annCARDIAC INVVVBB8620-64-36 08:09:71244Cgxctjdf HermannCARDIAC HKCGEOU7295-44-29 08:09:3037889Itzkrmrq HermannCARDIAC CUOAEOC0998-32-18 08:09:001.5[facility]annCARDIAC VNEPUKT2347-83-29 08:09:00<0.02[facility] HermannCHEM ZLQTB0232-39-03 08:09:0033.0[facility] HermannCHEM RHKUN2119-57-90 08:09:004[facility]annCHEM KBYWO9781-46-74 08:09:0089[facility]annCHEM VKPPQ8150-83-96 08:09:0093[facility]annCHEM KBWLW1864-21-49 08:09:004.1 [facility]annCHEM VUFXE7817-16-98 08:09:00 Test Item Value Reference Range Interpretation Comments A/G Ratio (test code = A/G Ratio) 0.7 1 0.7-1.6 [facility]annCHEM NNVCQ3819-70-94 08:09:00 Test Item Value Reference Range Interpretation Comments B/C Ratio (test code = B/C Ratio) 7 1 6-25 [facility]annCHEM UPFVO1726-90-24 08:09:0020.4[facility] HermannCHEM PANEL 2018-03-17 08:09:000.4[facility] HermannCHEM AGUTS7912-04-15 08:09:0011[facility]annCHEM INDYK7401-39-45 08:09:0010[facility]annCHEM SPEKQ1343-99-51 08:09:002.7[facility] HermannCHEM CAKRH7137-12-30 08:09:0021[facility]annCHEM VBXNC7117-20-21 08:09:006.8[facility]annCHEM JRGMO9553-87-63 08:09:007.5 [facility]annCHEM OLPKY7794-20-93 08:09:65383Vzpwqcib HermannCHEM PANEL 2018-03-17 08:09:004.4[facility] HermannCHEM DCGLI6539-42-52 08:09:0012.50[facility]annCHEM GCAHT9840-30-39 08:09:0085[facility]annCHEM KTFAO0368-84-55 08:09:47795Qddfbffl HermannCHEM TGPIU7696-52-39 08:09:001.9[facility] HermannCHEM NCREE4313-95-88 08:09:0065[facility]annCHEM FDAIJ5862-79-02 08:09:007.5 [facility] KdtumggDILASKMIBZ3153-48-52 08:09:000.8[facility]annHEMATOLOGY 2018-03-17 08:09:000.5[facility] MydkjpiEVSXWNPVPT9863-73-09 08:09:000.7[facility] CrvadahQCUDEUCEBX2151-84-09 08:09:000.5[facility] KdlzlntUBMWAHEAPO2599-80-86 08:09:007.4[facility] ApjvudmBZKXTVOEPI1523-99-23 08:09:001+ *ABN*(03/17/18 3:09 AM) [facility] FeykoppHFRLTEKBIA7374-94-80 08:09:007.7[facility]annHEMATOLOGY 2018-03-17 08:09:009.3[facility] DlygncgRZLEAJBEBQ8338-86-52 08:09:0082.0[facility] ZywwairLRTSDGUSKW9286-90-97 08:09:00 Test Item Value Reference Range Interpretation Comments INR (test code = INR) 1.26 1 0.85-1.17 [facility] JmatfwjNOKSZNWLVV7241-89-08 08:09:00 Test Item Value Reference Range Interpretation Comments PT (test code = PT) 15.9 s 12.0-14.7 [facility] YjilgviRQSXDXQHSU3943-96-51 08:09:00 Test Item Value Reference Range Interpretation Comments MCH (test code = MCH) 26.4 pg 27.0-31.0 [facility] RzngomzCMWYHNMLOP7133-02-47 08:09:0077.8[facility]annHEMATOLOGY 2018-03-17 08:09:0022.2[facility] ZtxnavbYJAIKFWFCK1729-00-40 08:09:007.5[facility] OtgptlyOVRJBIIKWC8387-06-90 08:09:009.0[facility] DeulpaaXMTIGYPFUQ1514-55-66 08:09:002.86[facility] YfpwwcfZCWMWSNGAP9177-21-98 08:09:007.4[facility] YFALGAJERW0605-41-13 08:09:05579Hivflald ZfbafllPMPWRJVEVJ3375-77-85 08:09:00 15.1[facility] PxknqqkZONUVYSJID5191-91-82 08:09:0034.0[facility] HermannCARDIAC VEZXSEY4471-91-68 08:09:00 Test Item Value Reference Range Interpretation Comments CK MB Index (test 1.2 1 See_Comment [Automate d message] The code = CK MB Index) system w [facility] generated this result transmit emerson reference range : <=2.5. The reference range was not used to interpr et this result as erinn l/abnormal. [facility]annCARDIAC GUIDNET9512-22-97 08:09:66741Mamsunee HermannCARDIAC DFEHWRZ9304-20-70 08:09:0780089Cjfrlkuk HermannCARDIAC JETNAYY9999-05-23 08:09:001.5[facility]annCARDIAC KGJOKMZ9946-78-22 08:09:00<0.02[facility]annCHEM TCKNW4711-36-84 08:09:0033.0[facility]annCHEM UQSJR6567-71-79 08:09:004[facility]annCHEM DIXJB5419-89-30 08:09:0089[facility]annCHEM NIANC1056-00-87 08:09:0093[facility]annCHEM JJFBC1387-88-08 08:09:004.1 [facility]annCHEM FHFTI5801-16-45 08:09:00 Test Item Value Reference Range Interpretation Comments A/G Ratio (test code = A/G Ratio) 0.7 1 0.7-1.6 [facility]annCHEM CIXOH2704-90-07 08:09:00 Test Item Value Reference Range Interpretation Comments B/C Ratio (test code = B/C Ratio) 7 1 6-25 [facility]annCHEM SCFWQ3042-89-91 08:09:0020.4[facility]annCHEM PANEL 2018-03-17 08:09:000.4[facility]annCHEM BETKT7009-12-45 08:09:0011[facility]annCHEM FUZHR2170-82-10 08:09:0010[facility]annCHEM UVSRX7868-50-93 08:09:002.7[facility]annCHEM ETPYB3973-55-00 08:09:0021[facility]annCHEM YWDTP3324-97-63 08:09:006.8[facility]annCHEM XNIBQ3930-20-64 08:09:007.5 [facility]annCHEM MSEIQ9315-61-31 08:09:05000Werdqlri HermannCHEM PANEL 2018-03-17 08:09:004.4[facility]annCHEM HXYOD6478-64-43 08:09:0012.50[facility]annCHEM QCMMZ2518-81-68 08:09:0085[facility]annCHEM ICTRP0544-38-84 08:09:97190Nzfuvgnf HermannCHEM PFYLD0350-50-49 08:09:001.9[facility]annCHEM WNVMY3617-18-22 08:09:0065[facility]annCHEM JFBAE1900-92-83 08:09:007.5 [facility] HeepreyWEPPMXHJRK1284-87-55 08:09:000.8[facility]annHEMATOLOGY 2018-03-17 08:09:000.5[facility] BadlyhgHLHWRNEZLL5826-39-49 08:09:000.7[facility] ZxgecxaBDQZLVZZWJ0308-36-69 08:09:000.5[facility] DktmoioHGSLKYEZIM0697-48-77 08:09:007.4[facility] JdcsdsvOPVCZKBVRH9644-69-98 08:09:001+ *ABN*(03/17/18 3:09 AM) [facility] OqdqrgvSQAMJOREFR2081-80-66 08:09:007.7[facility]annHEMATOLOGY 2018-03-17 08:09:009.3[facility] HogqkleKZYKOXRXAT7571-54-15 08:09:0082.0[facility] PtbbjmdAIZAJGUNGV7369-04-47 08:09:00 Test Item Value Reference Range Interpretation Comments INR (test code = INR) 1.26 1 0.85-1.17 [facility] LyagpvsDYOBZXESYM6128-40-80 08:09:00 Test Item Value Reference Range Interpretation Comments PT (test code = PT) 15.9 s 12.0-14.7 [facility] KkcyqwfZVEDTZOMSS0324-10-29 08:09:00 Test Item Value Reference Range Interpretation Comments MCH (test code = MCH) 26.4 pg 27.0-31.0 [facility] JqklrucMODVCWSSGF2272-30-77 08:09:0077.8[facility]annHEMATOLOGY 2018-03-17 08:09:0022.2[facility] NripareZOSOTOHNAZ3662-39-04 08:09:007.5[facility] EsegnulPTHGALDDEI6691-64-01 08:09:009.0[facility] QzxsxyfNCGGHLLMYC5665-25-92 08:09:002.86[facility] YvfneodHINJYKKLNZ6012-34-09 08:09:007.4[facility] IIIICJYIFF6811-87-06 08:09:48002Bmpavpcn CjalwbiJZPCDCWINP3653-66-56 08:09:00 15.1[facility] QhvcmeqOXPHBHUPHF1156-04-24 08:09:0034.0[facility] HermannCARDIAC SKQXXHR8497-56-85 00:37:00 Test Item Value Reference Range Interpretation Comments CK MB Index (test 1.7 1 See_Comment [Automate d message] The code = CK MB Index) system w [facility] generated this result transmit emerson reference range : <=2.5. The reference range was not used to interpr et this result as erinn l/abnormal. [facility]annCARDIAC DWZBXNU6667-61-83 00:37:002.9[facility] HermannCARDIAC RRVWDDR9659-35-44 00:37:00<0.02[facility] HermannCARDIAC IDJMVOB1677-03-05 00:37:26309Pnskqmxz HermannCARDIAC JNUSRLP3437-47-48 00:37:263688Lsxllfgq HermannCHEM XIMDJ1263-28-53 00:37:001.9[facility] HermannCHEM DRCTT4572-32-75 00:37:009.1[facility] HermannCHEM BNDAD7544-98-25 00:37:005[facility] HermannCHEM BXMJB8274-84-16 00:37:35690Ipowutsn HermannCHEM SAVYB1984-65-53 00:37:0023 [facility]annCHEM KWHQO0487-64-20 00:37:0024[facility]annCHEM PANEL 2018-01-23 00:37:00 Test Item Value Reference Range Interpretation Comments A/G Ratio (test code = A/G Ratio) 0.8 1 0.7-1.6 [facility]annCHEM ONIKU6825-93-74 00:37:004.0[facility]annCHEM PANEL 2018-01-23 00:37:000.4[facility] HermannCHEM DDXLO1327-24-99 00:37:004.4[facility] HermannCHEM VFRLD8256-77-73 00:37:006.7[facility] HermannCHEM JBOSF7012-33-35 00:37:22776Mznwtrxh HermannCHEM YNJSM4999-56-44 00:37:0011.00[facility] CHEM PVLRN8586-04-06 00:37:0017.4[facility] HermannCHEM LKCER2439-70-33 00:37:0025 [facility]annCHEM IVHNU3121-90-00 00:37:0092[facility]annCHEM PANEL 2018-01-23 00:37:003.4[facility] HermannCHEM XFHAS2200-60-21 00:37:007.4[facility] HermannCHEM NXLNV8269-26-42 00:37:00 Test Item Value Reference Range Interpretation Comments B/C Ratio (test code = B/C Ratio) 8 1 6-25 [facility]annCHEM XGBMP5802-17-98 00:37:0084[facility] HermannCHEM PANEL 2018-01-23 00:37:51967Zmkyywpz LmzywabZSCHTWSWLX6855-22-50 00:37:0021.5[facility] GznblbnVHFOADICKG3169-77-49 00:37:001.6[facility] CrbszurOBAEMBYQWU0562-56-96 00:37:000.3[facility] XdcbkdqRPPFKNUKRH0303-83-77 00:37:0063.7[facility] XLMRIXKQPZ1250-18-45 00:37:004.8[facility] CgrfkymJFOFHMJVBU9827-05-60 00:37:003.5 [facility] VdaqywmVXYBMJSGIE8056-09-40 00:37:0010.4[facility] HermannHEMATOLOGY 2018-01-23 00:37:000.9[facility] TkdqglgCMWQOUCNMX5658-76-60 00:37:000.1[facility] XiuoyalEVUGLPCYSJ7209-45-24 00:37:000.8[facility] HzbylytSGZLPUDWPY2280-67-62 00:37:00 Test Item Value Reference Range Interpretation Comments INR (test code = INR) 1.06 1 0.85-1.17 [facility] CiwnslyAFYWFVBGMF9181-92-54 00:37:00 Test Item Value Reference Range Interpretation Comments PT (test code = PT) 13.8 s 12.0-14.7 [facility] JmpcrjwWZTBBVHZIV6434-01-57 00:37:00 Test Item Value Reference Range Interpretation Comments PTT (test code = PTT) 35.7 s 22.9-35.8 [facility] UnyzwjySDGLQWQNEJ0892-17-41 00:37:21147Larzjvhf HermannHEMATOLOGY 2018-01-23 00:37:007.5[facility] WpjxfsqHSMEXLPRXZ0094-78-72 00:37:0025.4[facility] BkitdoiQLEDOELJJF3909-09-12 00:37:0080.3[facility] UzkoxkdBPWSBHUAFJ3776-80-45 00:37:00 Test Item Value Reference Range Interpretation Comments MCH (test code = MCH) 28.2 pg 27.0-31.0 [facility] RhhfvzlSJQYXZBMKT2360-13-80 00:37:008.9[facility] HermannHEMATOLOGY 2018-01-23 00:37:0035.1[facility] QgkxjmzYZZRPWTJRS8678-10-26 00:37:0013.9[facility] XsnqegzOMGVKTMZSS1392-12-31 00:37:007.6[facility] QqstriiDBSMICONKA6304-83-87 00:37:003.16[facility] WVNUG1303-85-37 00:37:0050[facility] GREMR0686-35-38 00:37:008[facility] EGLRP2903-69-51 00:37:00Small *ABN*(01/22/18 7:37 PM)[facility] PLPVV7331-27-43 00:37:00 Test Item Value Reference Range Interpretation Comments UA pH (test code = UA pH) 6.0 1 5.0-8.0 [facility] FEUUB1330-80-67 00:37:00Clear (01/22/18 7:37 PM) [facility] OZGMD7110-71-19 00:37:00 Test Item Value Reference Range Interpretation Comments UA Spec Grav (test code = UA Spec 1.005 1 Grav) [facility] IAFVX4883-89-09 00:37:00Negative (01/22/18 7:37 PM) [facility] MIZTJ6873-19-45 00:37:00Small *ABN*(01/22/18 7:37 PM) [facility] EAHUF8177-02-20 00:37:00Negative *NA*(01/22/18 7:37 PM) [facility]IAC JKGMNQM0199-07-00 00:37:00 Test Item Value Reference Range Interpretation Comments CK MB Index (test 1.7 1 See_Comment [Automate d message] The code = CK MB Index) system w [facility] generated this result transmit emerson reference range : <=2.5. The reference range was not used to interpr et this result as erinn l/abnormal. [facility] RKWEDQY6639-46-24 00:37:002.9[facility]annC[facility]AC GHYQTQR8256-69-30 00:37:00<0.02[facility]annCARDIAC EOIXKZF5782-75-68 00:37:28996Fhikrwys HermannCARDIAC LDDYNQR0552-14-98 00:37:753781Fqhqzjae HermannCHEM KQYMH5593-11-04 00:37:001.9[facility]annCHEM KVSHE6090-06-50 00:37:009.1[facility]annCHEM RIVPX5978-65-62 00:37:005[facility]annCHEM MTUGG2736-90-97 00:37:02629Vdzdmryp HermannCHEM AJUSB8202-66-65 00:37:0023 [facility]annCHE[facility] NLRTS8440-12-44 00:37:0024[facility]annCHEM PANEL 2018-01-23 00:37:00 Test Item Value Reference Range Interpretation Comments A/G Ratio (test code = A/G Ratio) 0.8 1 0.7-1.6 [facility]annCHE[facility] RMYRO5663-94-39 00:37:004.0[facility]annCHEM PANEL 2018-01-23 00:37:000.4[facility]annCHEM UJQHZ8722-32-17 00:37:004.4[facility]annCHEM QPJTH6038-17-19 00:37:006.7[facility]annCHEM TMGWF1454-17-60 00:37:78283Oazitwir HermannCHEM WWYHX0868-41-96 00:37:0011.00[facility] CHE[facility] VURDS9398-76-65 00:37:0017.4[facility]annCHEM RBLBL1898-74-00 00:37:0025 [facility]annCHE[facility] JUFSA0304-64-92 00:37:0092[facility]annCHEM PANEL 2018-01-23 00:37:003.4[facility]annCHEM HXRLT0337-55-00 00:37:007.4[facility]annCHEM BXHVR2827-38-21 00:37:00 Test Item Value Reference Range Interpretation Comments B/C Ratio (test code = B/C Ratio) 8 1 04-02 [facility]annCHE[facility] JMVOU0140-51-89 00:37:0084[facility]annCHEM PANEL 2018-01-23 00:37:68687Qkafugof TvkaldbCHTUASSNNL4560-49-48 00:37:0021.5[facility] MzebnciRPNYWXZJBY0910-51-49 00:37:001.6[facility] JbkkkqyRCWSYRTDTI9791-43-38 00:37:000.3[facility] WcslckyOAJFYPTGCN1996-12-94 00:37:0063.7[facility] UTOTNHRRBQ2609-43-22 00:37:004.8[facility] TbpbawdQPJIYDIMAG4384-45-45 00:37:003.5 [facility] FgqydzwSPOFZOPWIF1683-09-08 00:37:0010.4[facility]annHEMATOLOGY 2018-01-23 00:37:000.9[facility] FvhixfrIHZUSMRAII6904-42-71 00:37:000.1[facility] SbptwnjNESGRCQONV5251-47-85 00:37:000.8[facility] TavazqjJZPPKKHYZU1685-05-59 00:37:00 Test Item Value Reference Range Interpretation Comments INR (test code = INR) 1.06 1 0.85-1.17 [facility] SepatduOAOSMOHNDH4534-31-81 00:37:00 Test Item Value Reference Range Interpretation Comments PT (test code = PT) 13.8 s 12.0-14.7 [facility] PvhpaqvOOTHVEACWD1451-11-36 00:37:00 Test Item Value Reference Range Interpretation Comments PTT (test code = PTT) 35.7 s 22.9-35.8 [facility] LfcjiiaUAOMDTKPSB2488-96-03 00:37:57596Xfgzmepm HermannHEMATOLOGY 2018-01-23 00:37:007.5[facility] UrzhpvdFCZUBNABLE3599-80-31 00:37:0025.4[facility] KpsqsvoJLLGLFIWYB8800-47-53 00:37:0080.3[facility] AkjfwfnZAWOWNOAPO2434-78-44 00:37:00 Test Item Value Reference Range Interpretation Comments MCH (test code = MCH) 28.2 pg 27.0-31.0 [facility] DwjvsxwSBJTTVRUQB5260-03-66 00:37:008.9[facility]annHEMATOLOGY 2018-01-23 00:37:0035.1[facility] AxxmgyjUAPCVACKAZ0844-72-42 00:37:0013.9[facility] SfnryjjJXAHFQCOPW9750-23-26 00:37:007.6[facility] CvepvscNWZFDGCHLL8422-81-73 00:37:003.16[facility] DYDLF0777-42-48 00:37:0050[facility] SKQDL5889-14-48 00:37:008[facility] IEEJO2436-55-50 00:37:00Small *ABN*(01/22/18 7:37 PM)[facility] VXKNL3278-24-48 00:37:00 Test Item Value Reference Range Interpretation Comments UA pH (test code = UA pH) 6.0 1 5.0-8.0 [facility] CBXVA5073-08-81 00:37:00Clear (01/22/18 7:37 PM) [facility] HYEIR1442-61-47 00:37:00 Test Item Value Reference Range Interpretation Comments UA Spec Grav (test code = UA Spec 1.005 1 Grav) [facility] WMABF2923-77-02 00:37:00Negative (01/22/18 7:37 PM) [facility] EUTSG7880-76-52 00:37:00Small *ABN*(01/22/18 7:37 PM) [facility] CYBHI2881-74-92 00:37:00Negative *NA*(01/22/18 7:37 PM) [facility]annCHEM RPPLH3144-57-19 10:09:001.8[facility]annCHEM PANEL 2017-12-20 10:09:004[facility]annCHEM QCGWP0518-65-08 10:09:0011.60[facility]annCHEM OPVUR2424-71-26 10:09:006.9[facility]annCHEM PDOIY6502-59-31 10:09:0027[facility]annCHEM JKXXM2061-85-22 10:09:67532Xwmigitd HermannCHEM YXNUD7346-58-16 10:09:0094[facility]annCHEM AOACI5257-67-25 10:09:003.7 [facility]annCHEM YWLGB2681-20-64 10:09:03523Riwgaybh HermannCHEM PANEL 2017-12-20 10:09:0085[facility] HermannCHEM WIBRU6838-48-26 10:09:0015.7[facility] IbqlgelQJYONITFGU8667-51-60 10:09:000.2[facility] JxnwtdrPUUJJQQMWE0593-34-28 10:09:000.6[facility] FhguswnGYDRVRAEZD6343-95-67 10:09:001+ *ABN*(12/20/17 5:09 AM)[facility] NnjjfslJDFXKBPPYE7093-15-64 10:09:0071.0[facility]annHEMATOLOGY 2017-12-20 10:09:001.0[facility] DngutqfJBFHYBGJYQ6884-06-35 10:09:000.8[facility] OmyjshnAXMRZRPLPW9107-53-82 10:09:004.6[facility] DqaobzlYYFOMVXBUI1531-44-93 10:09:0015.7[facility] GcfxxxlSLXQMGLBLM2404-66-60 10:09:003.1[facility] AOKVGWHAYU8521-67-12 10:09:009.4[facility] GdvqpslNROORDRYUY3662-39-83 10:09:25331 [facility] FtmwynpKXUJNYJYQV4169-99-23 10:09:0077.5[facility]annHEMATOLOGY 2017-12-20 10:09:0035.5[facility] CmdpoobWFTPNIMQDZ7408-54-99 10:09:00 Test Item Value Reference Range Interpretation Comments MCH (test code = MCH) 27.5 pg 27.0-31.0 [facility] HpxtkwaWMUJWCEFRM4482-85-62 10:09:0014.1[facility] HermannHEMATOLOGY 2017-12-20 10:09:007.7[facility] AmaljuzFCVLOMCCBG6288-55-82 10:09:0023.5[facility] HifnpghXZPHPVZAYT0593-03-83 10:09:008.4[facility] BsplevuACBOUIXEAZ6801-83-19 10:09:003.03[facility] LhlnsqjJSXCMMUNRK2125-44-27 10:09:006.5[facility] PARATHYROID ZFGULEX0624-00-56 10:09:000.86[facility] HermannPARATHYROID PROFILE 2017-12-20 10:09:000.86[facility] HermannCHEM TCVOC3057-42-94 10:09:001.8[facility] HermannCHEM FDEAU3452-09-85 10:09:004[facility]annCHEM WNQDQ5962-95-49 10:09:0011.60[facility]annCHEM ZDUZG6858-74-78 10:09:006.9[facility] CHEM LSBMO2806-09-49 10:09:0027[facility]annCHEM ODECR4670-01-70 10:09:61368 [facility]annCHEM ZSSLB3292-32-94 10:09:0094[facility]annCHEM PANEL 2017-12-20 10:09:003.7[facility] HermannCHEM UHBUO2059-51-31 10:09:07583Gnngpvvd HermannCHEM FHDQB4806-47-27 10:09:0085[facility]annCHEM DZLGT3453-56-37 10:09:0015.7[facility] QavntbyAJQSMLZHIT8743-20-76 10:09:000.2[facility] FYNSENYGIP7909-14-90 10:09:000.6[facility] EvmteeyOVJTLBLQHX9347-89-92 10:09:001+ *ABN*(12/20/17 5:09 AM)[facility] QrtecvtLGIUOBVOUI8409-25-82 10:09:0071.0[facility] NhpwpsnWNLSAJWLCW0991-46-12 10:09:001.0[facility] FiityquWMZLVAHXFL4529-42-67 10:09:000.8[facility] BfbbrxxAAYHHTRMXH8788-29-77 10:09:004.6[facility] KCDVZEMAFT2177-00-16 10:09:0015.7[facility] MnnvuenDMINUDVGXP4494-34-66 10:09:00 3.1[facility] AbukgalAMFGEZFKQD2203-83-31 10:09:009.4[facility] HermannHEMATOLOGY 2017-12-20 10:09:05287Pbeckxnl KaoevelVAKLXEYDAB9932-06-28 10:09:0077.5[facility] JdjoenvLTRGDDEQUH5451-46-37 10:09:0035.5[facility] TtstrlrKKTEPNPVEU7402-70-49 10:09:00 Test Item Value Reference Range Interpretation Comments MCH (test code = MCH) 27.5 pg 27.0-31.0 [facility] KjwpnbsASSSRBIWVK5828-74-80 10:09:0014.1[facility] HermannHEMATOLOGY 2017-12-20 10:09:007.7[facility] DoaairwKLBWQNRUEM7310-98-35 10:09:0023.5[facility] RugkqjsDDXIEFPTYJ1835-38-71 10:09:008.4[facility] EejjaztOAWYPXQPJO5174-95-88 10:09:003.03[facility] TwpyzdtFVZTADNDYV8265-16-22 10:09:006.5[facility] PARATHYROID LZPEQLK8532-05-24 10:09:000.86[facility] HermannPARATHYROID PROFILE 2017-12-20 10:09:000.86[facility] HermannURINE AND GWJRN5816-85-59 17:00:00 Positive *ABN*(12/19/17 12:00 PM)[facility]annURINE AND CKGDN8437-18-16 17:00:00Positive *ABN*(12/19/17 12:00 PM)[facility]annCHEM LCOAM8031-37-25 12:14:008.2[facility] HermannCHEM HTLZJ5896-59-87 12:14:00 Test Item Value Reference Range Interpretation Comments A/G Ratio (test code = A/G Ratio) 0.8 1 0.7-1.6 [facility]annCHEM JOJTI5743-11-51 12:14:009[facility]annCHEM PANEL 2017-12-19 12:14:0010[facility] HermannCHEM ZKKHM1089-69-95 12:14:003.5[facility] HermannCHEM TXEQS3910-82-62 12:14:002.7[facility] HermannCHEM VIIMN2296-18-64 12:14:004[facility]annCHEM NVPOA5972-27-94 12:14:12919Tasknfjb HermannCHEM QUDIV2467-72-44 12:14:000.3[facility]annCHEM HIXXW6281-05-91 12:14:0088 [facility]annCHEM KXARR0973-30-96 12:14:003.6[facility]annCHEM PANEL 2017-12-19 12:14:0095[facility]annCHEM UOAVA8587-76-91 12:14:48243Spzzdtvt HermannCHEM LQUVG1860-22-93 12:14:89547Aopyugoh HermannCHEM PLDPV9822-53-50 12:14:0011.70[facility]annCHEM KXYQK3237-51-07 12:14:00 Test Item Value Reference Range Interpretation Comments B/C Ratio (test code = B/C Ratio) 9 1 6-25 [facility]annCHEM ZIVAA8885-20-15 12:14:006.2[facility] HermannCHEM PANEL 2017-12-19 12:14:006.5[facility] HermannCHEM PIMCX3354-44-56 12:14:0014.6[facility]annCHEM SWSNO9684-88-65 12:14:0029[facility] HermannPARATHYROID PROFILE 2017-12-19 12:14:000.88[facility] HermannPARATHYROID OIHIFEI8124-40-48 12:14:00 0.85[facility]annCHEM ULXTL7394-94-37 12:14:008.2[facility] HermannCHEM PANEL 2017-12-19 12:14:00 Test Item Value Reference Range Interpretation Comments A/G Ratio (test code = A/G Ratio) 0.8 1 0.7-1.6 [facility]annCHEM HIGZV7169-33-31 12:14:009[facility]annCHEM PANEL 2017-12-19 12:14:0010[facility]annCHEM POZOG4687-46-13 12:14:003.5[facility]annCHEM KEFBN9198-39-31 12:14:002.7[facility] HermannCHEM NZWRI5791-20-81 12:14:004[facility]annCHEM VKABK9361-80-90 12:14:49376Ptxoxkif HermannCHEM QYUHV8642-30-39 12:14:000.3[facility] HermannCHEM OAMQN8153-59-77 12:14:0088 [facility]annCHEM RZEJA8178-90-51 12:14:003.6[facility]annCHEM PANEL 2017-12-19 12:14:0095[facility]annCHEM KUFIB0865-49-94 12:14:71240Rabskqss HermannCHEM WXNEI3473-82-46 12:14:74521Vupvpair HermannCHEM QFSXF6384-40-18 12:14:0011.70[facility]annCHEM ABSRN0740-07-21 12:14:00 Test Item Value Reference Range Interpretation Comments B/C Ratio (test code = B/C Ratio) 9 1 6-25 [facility]annCHEM WEHUO7480-66-38 12:14:006.2[facility] HermannCHEM PANEL 2017-12-19 12:14:006.5[facility] HermannCHEM UQUOI4760-69-44 12:14:0014.6[facility]annCHEM EEIZD8732-38-34 12:14:0029[facility]annPARATHYROID PROFILE 2017-12-19 12:14:000.88[facility] HermannPARATHYROID BZWYVKF9337-82-24 12:14:00 0.85[facility]annCHEM QGFVP7946-16-46 10:02:004[facility]annCHEM PANEL 2017-12-19 10:02:0092[facility]annCHEM TSVXU7449-69-89 10:02:26249Wnpaiuei HermannCHEM MIFFD5355-06-38 10:02:003.6[facility]annCHEM BPYEK2272-81-86 10:02:0097[facility]annCHEM BWCNI7875-41-38 10:02:0011.80[facility]annCHEM HNFFB8784-73-39 10:02:006.8[facility] HermannCHEM UBYKY2446-29-20 10:02:0027 [facility]annCHEM TXXRL1993-60-91 10:02:0018.6[facility] HermannCHEM PANEL 2017-12-19 10:02:0096[facility] HermannCHEM JQXID1136-78-40 10:02:001.8[facility] NhxllynDLKJFLBHFO9212-80-08 10:02:0014.3[facility] MclgcbtYSNLLVRIOX9688-27-13 10:02:0034.5[facility] VdkbbjxKXZZVTMNLM4808-44-48 10:02:00 Test Item Value Reference Range Interpretation Comments MCH (test code = MCH) 26.8 pg 27.0-31.0 [facility] WbaqsymFURGVKROEN9906-18-88 10:02:008.0[facility] HermannHEMATOLOGY 2017-12-19 10:02:57035Uvnrpgki KoeekxmWZDLOEVRRO4072-18-63 10:02:0077.7[facility] WzfwlkmWMPITCQCLX9877-00-68 10:02:0024.7[facility] YwohgwdZHTOINKZQB4792-69-43 10:02:008.5[facility] LfuzttjFBOONEGXMJ5886-94-19 10:02:003.17[facility] BXOUFRMFNN7527-67-42 10:02:006.6[facility] FvmtryrHEJNIXTFTR5036-90-46 10:02:000.7 [facility] VrdlevfNUCSGHPZGB0611-51-69 10:02:000.2[facility] HermannHEMATOLOGY 2017-12-19 10:02:001+ *ABN*(12/19/17 5:02 AM)[facility] PwhgnngYMNWISQZVM7900-06-40 10:02:001.0[facility] BnfpqbmDRAVAIBAVJ7138-72-66 10:02:000.6[facility] DPWBTUMDGW0006-27-65 10:02:004.7[facility] BgejbmdLQIJUFBLRF9336-63-17 10:02:00 10.3[facility] TuootaaRURQDZYGVQ5554-28-46 10:02:002.9[facility] HermannHEMATOLOGY 2017-12-19 10:02:0015.3[facility] BrqllztKFRFOCMTPP9785-06-31 10:02:0070.9[facility] HermannPARATHYROID UWEGITU4342-41-38 10:02:000.88[facility] HermannPARATHYROID NEWWBSK6934-51-38 10:02:000.88[facility] HermannCHEM FSMCE4202-17-22 10:02:004 [facility]annCHEM RRNCA6276-00-13 10:02:0092[facility] HermannCHEM PANEL 2017-12-19 10:02:10274Majtohki HermannCHEM NMAMU1785-09-45 10:02:003.6[facility] HermannCHEM STLMI3234-16-92 10:02:0097[facility]annCHEM FGWZD8190-80-36 10:02:0011.80[facility]annCHEM YNRMH8499-24-61 10:02:006.8[facility] CHEM BPXAS4112-12-90 10:02:0027[facility]annCHEM UNPUW3740-10-95 10:02:0018.6 [facility]annCHEM LFPTS5983-02-29 10:02:0096[facility]annCHEM PANEL 2017-12-19 10:02:001.8[facility] NbxkhqgJIZPNJJJWN5763-01-49 10:02:0014.3[facility] WlyraqyHAHTIVYGAV8491-65-04 10:02:0034.5[facility] LgtfydnNIZPNFCHKR3458-47-23 10:02:00 Test Item Value Reference Range Interpretation Comments MCH (test code = MCH) 26.8 pg 27.0-31.0 [facility] WdzknzaLSYPRDWGOF0436-26-01 10:02:008.0[facility] HermannHEMATOLOGY 2017-12-19 10:02:47313Prtusuto DrdenqwQUHONLXZWQ9080-50-89 10:02:0077.7[facility] EypiswyUMAUDMDFEP1178-45-00 10:02:0024.7[facility] NhqaxtgTQHKZVXGMF6828-95-28 10:02:008.5[facility] OlvawnsWENREUBCWM6828-46-02 10:02:003.17[facility] PZDQUPIPBE4731-46-99 10:02:006.6[facility] WrqiiswVNNJBVJZGR7832-61-26 10:02:000.7 [facility] CffjgvnSAHMWUDNEM4558-66-88 10:02:000.2[facility]annHEMATOLOGY 2017-12-19 10:02:001+ *ABN*(12/19/17 5:02 AM)[facility] NfdnvtwHDICKWBYHH7224-94-33 10:02:001.0[facility] FuplhdnMSIKBQYNRP2891-81-63 10:02:000.6[facility] SLXYOHVOPC6993-60-96 10:02:004.7[facility] HhibugsLGBTETOYYL4302-66-72 10:02:00 10.3[facility] SmdxjotDQVWAMAMGP0982-75-62 10:02:002.9[facility] HermannHEMATOLOGY 2017-12-19 10:02:0015.3[facility] GwrshunYOTMNACBKH5264-60-16 10:02:0070.9[facility] HermannPARATHYROID AMSNMEQ0932-62-38 10:02:000.88[facility] HermannPARATHYROID QADDHCY4992-87-20 10:02:000.88[facility] HermannCHEM NTKAF4019-54-90 09:55:001.9 [facility]annCHEM KRUXQ9366-77-76 09:55:008.8[facility] HermannCHEM PANEL 2017-12-18 09:55:001.9[facility] HermannCHEM JALYU7442-52-36 09:55:008.8[facility] XgtqvepAJIJIBOZJO3940-14-49 09:32:001+ *ABN*(12/17/17 4:32 AM)[facility] VAXUJWZKYX6663-98-65 09:32:000.2[facility] NmsjfayBIZWZNZSBQ0535-69-02 09:32:000.6 [facility] PfsukqzGJGWAEDNGK8129-34-78 09:32:001.0[facility] HermannHEMATOLOGY 2017-12-17 09:32:003.9[facility] VueqcpfWKUNIPXRXG8458-09-42 09:32:000.6[facility] VwyjdzxCCYEKXVIHM4916-16-20 09:32:002.7[facility] XzyclawUAPEZHUIBX4748-17-39 09:32:0010.4[facility] UxsebioHRBWLEPVUV2176-91-12 09:32:0018.1[facility] SYZTRNJBUF2760-21-16 09:32:0068.2[facility] DlqspwvFBUCDKGWQF0634-84-15 09:32:00 213[facility] DvuwvhxGUNWNRVSZL8745-89-31 09:32:0014.3[facility] HermannHEMATOLOGY 2017-12-17 09:32:008.0[facility] RcflfozNROXMFPMBF0291-85-64 09:32:00 Test Item Value Reference Range Interpretation Comments MCH (test code = MCH) 27.4 pg 27.0-31.0 [facility] WqgwaqhUNQQXPSMJI5776-55-77 09:32:0078.6[facility] HermannHEMATOLOGY 2017-12-17 09:32:0022.8[facility] RwdebzuTFCSPNRBFA4884-62-45 09:32:0034.9[facility] TwyiaopNRYBNHAVEC0790-92-02 09:32:007.9[facility] PtmlfhnRSFLQIGZKB3122-14-01 09:32:002.90[facility] IfhofrqTHVYJOYDKQ7408-95-63 09:32:005.7[facility] HPHPAYCVAI7355-07-08 09:32:0080[facility] GhhopteCKNRRWSIKP3242-28-17 09:32:007.0 [facility] OobridnRTNQGUJSER7978-49-77 09:32:001.13[facility] HermannIMMUNOLOGY 2017-12-17 09:32:000.83[facility] ShfkcydGJJUYZZGAD0897-90-28 09:32:000.85[facility] MyzgkmqCVAQTWZIOS6670-75-81 09:32:000.48[facility] XqigzhhRAAJEKRVQS7813-36-25 09:32:003.72[facility] LhqvengXERDQSODXA5675-59-70 09:32:0011.8[facility] CVIXGKWHLE3882-33-25 09:32:0016.2[facility] JpvtrocBDNQCUFOPR0754-65-99 09:32:00 12.1[facility] KhihhkkVHUZGXRBSV3584-58-75 09:32:006.8[facility] HermannIMMUNOLOGY 2017-12-17 09:32:0053.1[facility] XrpiwldZRKRVFGWZH2485-97-05 09:32:0091[facility] BgtldtbMQGXSZEPTM6134-10-44 09:32:0029[facility] FcelkjxMAIAKSDXKE3487-37-43 09:32:00Negative (12/17/17 4:32 AM)[facility] KnjoznuRFKPAISWSV4164-25-50 09:32:00 Negative (12/17/17 4:32 AM)[facility] MkpqjomKMPSRJHUBH3499-91-41 09:32:00Negative *NA*(12/17/17 4:32 AM)[facility] QwenphsNVVIKJENTA8776-77-26 09:32:00<3.1 [facility] LeduyheDWZWZJCEQH3837-06-41 09:32:00Negative *NA*(12/17/17 4:32 AM) [facility] RwvqtrpBSTYJGPUSA1140-06-14 09:32:00Negative (12/17/17 4:32 AM)[facility] PythereZNUVODFJUH6471-75-85 09:32:003.42[facility] SnwygjwPPNHIWYAIB4599-19-59 09:32:49157.40[facility] CbzkfwcVMUPPXQKOX8265-02-15 09:32:0059.41[facility] LXVITEXMCD2022-52-52 09:32:00Negative (12/17/17 4:32 AM)[facility] CKPNSMGKTW7678-20-35 09:32:00<10[facility] ClkjtcjTDQFIRILIP7918-45-05 09:32:00 1+ *ABN*(12/17/17 4:32 AM)[facility] BodmpasTHRUZZAXZQ8763-22-07 09:32:000.2 [facility] OoqlwejZBOZRUCQHL5190-12-31 09:32:000.6[facility]annHEMATOLOGY 2017-12-17 09:32:001.0[facility] UcyfymtKPZVPSVSBW9847-18-34 09:32:003.9[facility] BcaltcpBFJIIJYYNM2568-90-82 09:32:000.6[facility] FipsvfsQIZCTIAVHP4221-51-63 09:32:002.7[facility] YdoqjsyJAWTWWVGUP6651-36-75 09:32:0010.4[facility] QJJCHDXISO5301-79-19 09:32:0018.1[facility] UigjmpcQZOBTOEGOJ0475-50-27 09:32:00 68.2[facility] ObxdatjGGAAJXNOUG6059-58-07 09:32:87645Tjepelsb HermannHEMATOLOGY 2017-12-17 09:32:0014.3[facility] ZhhaykaXABTQXAAKX2004-76-71 09:32:008.0[facility] UptsqsyTNZCSATZRK1097-60-38 09:32:00 Test Item Value Reference Range Interpretation Comments MCH (test code = MCH) 27.4 pg 27.0-31.0 [facility] SeaatzsRXAFQFBSHN9218-40-91 09:32:0078.6[facility]annHEMATOLOGY 2017-12-17 09:32:0022.8[facility] HxirtpkJOPIOSXPKW8170-46-43 09:32:0034.9[facility] PwkokdlUXNQDCLHQX8180-76-26 09:32:007.9[facility] MgfebyuKXNHORPPQT5432-41-94 09:32:002.90[facility] WdeqcieILPVCUGHZX6532-43-78 09:32:005.7[facility] ANZMICNSIY8754-78-14 09:32:0080[facility] YlblpkiPHYPKPDYHJ5955-32-22 09:32:007.0 [facility] EqnpszvCONXRWJLYI1491-66-13 09:32:001.13[facility] HermannIMMUNOLOGY 2017-12-17 09:32:000.83[facility] FveiawdHNTKHHEIHH5734-04-66 09:32:000.85[facility] NggjxhyTIACTXLWDU1162-20-14 09:32:000.48[facility] HnqdpytVHMFTVSBBX5233-47-72 09:32:003.72[facility] VybocieISEOCXARQO8112-34-75 09:32:0011.8[facility] SDDQSXEJHL9730-72-82 09:32:0016.2[facility] UkrgbsiRSSTVYYKZK4859-15-05 09:32:00 12.1[facility] AevkadyQERIMCMHIO5566-51-49 09:32:006.8[facility] HermannIMMUNOLOGY 2017-12-17 09:32:0053.1[facility] LbgsuhyTDHVSSDZEE1423-41-82 09:32:0091[facility] VloakazFYXDZZQTHK4153-85-88 09:32:0029[facility] JggsgtiMBUTLYWHQG0835-27-27 09:32:00Negative (12/17/17 4:32 AM)[facility] XnnmylcTTCHJBAUPR0299-32-35 09:32:00 Negative (12/17/17 4:32 AM)[facility] SdrapstOCUVPMPDRO3597-28-61 09:32:00Negative *NA*(12/17/17 4:32 AM)[facility] PrliwpqRSJRAUKJJN1281-10-46 09:32:00<3.1 [facility] AwzlivlXMZGWXCHPY4961-76-90 09:32:00Negative *NA*(12/17/17 4:32 AM) [facility] LlduvxlNGHNDKABCR5432-23-29 09:32:00Negative (12/17/17 4:32 AM)[facility] NagonwzABZPMFZRVA5967-60-92 09:32:003.42[facility] NaeaxihSOJKXIDDAM1940-55-17 09:32:28723.40[facility] LhqbzsmECKKHRDQBO2649-19-98 09:32:0059.41[facility] JXYXZKGXJL5536-23-52 09:32:00Negative (12/17/17 4:32 AM)[facility] YWYBKWEMQM0116-74-47 09:32:00<10[facility] HermannANEMIA KZXOT8610-44-82 22:29:0012Mem[facility] HermannANEMIA CYHDZ2707-52-54 22:29:35523Ecxvfyxj [facility] ANEMIA FPNDV4055-25-78 22:29:84766Hueygikz HermannANEMIA QIGQP7006-33-69 22:29:0034Mem[facility] HermannANEMIA WKPCK0721-79-13 22:29:02899Buwpcjif [place] ANEMIA NQAQF9487-65-08 22:29:07062Qhllxknv HermannANEMIA BUDYW5307-91-68 22:29:0019.0[facility] HermannCHEM WJEBT3772-47-38 22:29:0012.3[facility] PARATHYROID RCNCHOS4287-53-63 22:29:53624.7[facility] HermannANEMIA STUDY 2017-12-15 22:29:0012Mem[facility] HermannANEMIA OJPNI4857-40-27 22:29:91071Qqnhnamm HermannANEMIA IEXXP9538-11-66 22:29:26209Etaweiyg HermannANEMIA VDIFH3218-88-34 22:29:0034[facility] HermannANEMIA NENBY9985-98-69 22:29:53519Lexbjwkn [place] ANEMIA VTYNZ4709-82-70 22:29:17819Cvdonrqc HermannANEMIA EHIWH6114-87-02 22:29:0019.0[facility] HermannCHEM ETMCW6464-84-73 22:29:0012.3[facility] PARATHYROID MTEBVNR3644-86-24 22:29:68521.7[facility] FfytjgrKOFNBTFQJM6164-56-59 20:13:001.5[facility] QdqolamQKKDVXCJLT7990-05-72 20:13:001.5[facility] CARDIAC VCFJEZE7194-00-76 20:12:00<0.02[facility] HermannCARDIAC ENZYMES 2017-12-15 20:12:45245Lkawpzjh HermannCARDIAC JHXGTUI1706-73-98 20:12:005.4 [facility] HermannCARDIAC VLNPGOK6584-50-69 20:12:00 Test Item Value Reference Range Interpretation Comments CK MB Index (test 1.4 1 See_Comment [Automate d message] The code = CK MB Index) system w [facility] generated this result transmit emerson reference range : <=2.5. The reference range was not used to interpr et this result as erinn l/abnormal. [facility]annCHEM MBEIQ5716-64-60 20:12:000.4[facility] HermannCHEM PANEL 2017-12-15 20:12:0014Mem[facility] HermannCHEM GVEGH7970-64-24 20:12:0017[facility] HermannCHEM IBRTR4930-30-78 20:12:40723Qdosnrvr HermannCHEM OJXSQ3208-10-52 20:12:003.4[facility] HermannCHEM VOEAT7401-16-27 20:12:007.4[facility] HermannCHEM PGEMB1768-98-01 20:12:00 Test Item Value Reference Range Interpretation Comments B/C Ratio (test code = B/C Ratio) 9 1 6-25 [facility]annCHEM SFNZU7560-69-73 20:12:00 Test Item Value Reference Range Interpretation Comments A/G Ratio (test code = A/G Ratio) 0.8 1 0.7-1.6 [facility]annCHEM OCXBZ4649-27-31 20:12:004.0[facility] HermannCARDIAC ENZYMES 2017-12-15 20:12:00<0.02[facility] HermannCARDIAC DKLQVKW4085-95-91 20:12:73132 [facility]annCARDIAC WKCPQWV3906-93-71 20:12:005.4[facility] HermannCARDIAC MIPLRTC8865-60-82 20:12:00 Test Item Value Reference Range Interpretation Comments CK MB Index (test 1.4 1 See_Comment [Automate d message] The code = CK MB Index) system w [employer] generated this result transmit emerson reference range : <=2.5. The reference range was not used to interpr et this result as erinn l/abnormal. [facility]annCHEM HECDV2510-37-03 20:12:000.4[facility] HermannCHEM PANEL 2017-12-15 20:12:0014[facility] HermannCHEM BZLNB5002-73-12 20:12:0017[facility] HermannCHEM IURHY4703-02-12 20:12:78014Xbqsqoid HermannCHEM USLZT0059-78-15 20:12:003.4[facility] HermannCHEM LACQZ9830-54-99 20:12:007.4[facility] HermannCHEM URWQX9232-51-46 20:12:00 Test Item Value Reference Range Interpretation Comments B/C Ratio (test code = B/C Ratio) 9 1 6-25 [facility]annCHEM DTVQM6301-26-78 20:12:00 Test Item Value Reference Range Interpretation Comments A/G Ratio (test code = A/G Ratio) 0.8 1 0.7-1.6 [facility]annCHEM [id number] 20:12:004.0[facility] ENZYMES 2017-12-15 16:39:00<0.02[facility] [id number] 16:39:11877 [facility] [id number] 16:39:004.8[facility] [id number] 16:39:00 Test Item Value Reference Range Interpretation Comments CK MB Index (test 1.4 1 See_Comment [Automate d message] The code = CK MB Index) system w [employer] generated this result transmit emerson reference range : <=2.5. The reference range was not used to interpr et this result as erinn l/abnormal. [facility] [id number] 16:39:00<0.02[facility] C[facility]AC [id number] 16:39:74705Lvciroox HermannCARDIAC [id number] 16:39:004.8[facility] [id number] 16:39:00 Test Item Value Reference Range Interpretation Comments CK MB Index (test 1.4 1 See_Comment [Automate d message] The code = CK MB Index) system w [employer] generated this result transmit emerson reference range : <=2.5. The reference range was not used to interpr et this result as erinn l/abnormal. [facility] [id number] 14:38:0020.0[facility] CHEM 2017-12-15 14:38:0031[facility] [id number] 14:38:0022[facility] [id number] 14:38:51691.9[facility] [id number] 14:38:00 Test Item Value Reference Range Interpretation Comments U Prot/Creat (test code = U 4.35 1 Prot/Creat) [facility] [id number] 14:38:0056.70[facility] CHEM 2017-12-15 14:38:50226Ttcyzdez HermannURINE [id number] 14:38:00None Seen (12/15/17 8:38 AM)[facility] [id number] 14:38:0020.0[facility] [id number] 14:38:0031[facility] [id number] 14:38:0022[facility] [id number] 14:38:54791.9[facility]INE [id number] 14:38:00 Test Item Value Reference Range Interpretation Comments U Prot/Creat (test code = U 4.35 1 Prot/Creat) [facility] [id number] 14:38:0056.70[facility] CHEM 2017-12-15 14:38:90654Mgmplgig [facility]annURINE [id number] 14:38:00None Seen (12/15/17 8:38 AM)[facility] AND [id number] 14:33:00Performed *NA*(12/15/17 8:33 AM)[facility] [id number] 14:33:0050[facility] [id number] 14:33:00Negative (12/15/17 8:33 AM)[facility] [id number] 14:33:00Small *ABN*(12/15/17 8:33 AM)[facility] [id number] 14:33:00Negative (12/15/17 8:33 AM)[facility] [id number] 14:33:003[facility] STOOL 2017-12-15 14:33:001[facility] [id number] 14:33:00Slight *ABN*(12/15/17 8:33 AM)[facility] [id number] 14:33:00 Test Item Value Reference Range Interpretation Comments UA Spec Grav (test code = UA Spec 1.008 1 Grav) [facility] [id number] 14:33:00 Test Item Value Reference Range Interpretation Comments UA pH (test code = UA pH) 5.0 1 5.0-8.0 [facility] [id number] 14:33:00Negative *NA*(12/15/17 8:33 AM) [facility] [id number] 14:33:00Performed *NA*(12/15/17 8:33 AM) [facility] [id number] 14:33:0050[facility] [id number] 14:33:00Negative (12/15/17 8:33 AM)[facility] STOOL 2017-12-15 14:33:00Small *ABN*(12/15/17 8:33 AM)[facility] STOOL 2017-12-15 14:33:00Negative (12/15/17 8:33 AM)[facility] STOOL 2017-12-15 14:33:003[facility] [id number] 14:33:001[facility] [id number] 14:33:00Slight *ABN*(12/15/17 8:33 AM)[facility] [id number] 14:33:00 Test Item Value Reference Range Interpretation Comments UA Spec Grav (test code = UA Spec 1.008 1 Grav) [facility] [id number] 14:33:00 Test Item Value Reference Range Interpretation Comments UA pH (test code = UA pH) 5.0 1 5.0-8.0 [facility] [id number] 14:33:00Negative *NA*(12/15/17 8:33 AM) [facility] [id number] 12:48:00 Test Item Value Reference Range Interpretation Comments CK MB Index (test 1.3 1 See_Comment [Automate d message] The code = CK MB Index) system w [facility] generated this result transmit emerson reference range : <=2.5. The reference range was not used to interpr et this result as erinn l/abnormal. [facility] [id number] 12:48:757124Lvunrqti HermannCARDIAC [id number] 12:48:82654Oyzhlsqr [facility]annCARDIAC [id number] 12:48:00 4.8[facility] [id number] 12:48:00<0.02[facility] CHEM [id number] 12:48:00 Test Item Value Reference Range Interpretation Comments A/G Ratio (test code = A/G Ratio) 0.8 1 0.7-1.6 [facility] [id number] 12:48:007.0[facility] PANEL 2017-12-15 12:48:003.9[facility] [id number] 12:48:003.1[facility] [id number] 12:48:000.4[facility] [id number] 12:48:03097Ilkqgcjk HermannCHEM [id number] 12:48:0015[facility]CHE[facility] [id number] 12:48:0013[facility] [id number] 12:48:00 Test Item Value Reference Range Interpretation Comments B/C Ratio (test code = B/C Ratio) 9 1 6-25 [facility] [id number] 12:48:001.17[facility] ENZYMES 2017-12-15 12:48:00 Test Item Value Reference Range Interpretation Comments CK MB Index (test 1.3 1 See_Comment [Automate d message] The code = CK MB Index) system w [facility] generated this result transmit emerson reference range : <=2.5. The reference range was not used to interpr et this result as erinn l/abnormal. [facility] [id number] 12:48:698001Awchsogj HermannCARDIAC [id number] 12:48:93053Pipuwdid [facility]annCARDIAC [id number] 12:48:00 4.8[facility]ARD[facility] [id number] 12:48:00<0.02[facility] [id number] 12:48:00 Test Item Value Reference Range Interpretation Comments A/G Ratio (test code = A/G Ratio) 0.8 1 0.7-1.6 [facility] [id number] 12:48:007.0[facility]annCHEM PANEL 2017-12-15 12:48:003.9[facility]CHE[facility] [id number] 12:48:003.1[facility] [id number] 12:48:000.4[facility]CHE[facility] [id number] 12:48:15482Xvqmcjwi HermannCHEM [id number] 12:48:0015[facility]annCHE[facility] [id number] 12:48:0013[facility]CHE[facility] [id number] 12:48:00 Test Item Value Reference Range Interpretation Comments B/C Ratio (test code = B/C Ratio) 9 1 6-25 [id number] 12:48:001.17[facility]
--- NOTE | 2021-05-20 23:46 | EDPHYS ---
Physician Documentation [facility] Name: Alex Cagle Age: 60 yrs Sex: Male : 1960 Arrival Date: 05/20/2021 Time: 19:38 Bed 5 Private MD: Toya Andrew H ED Physician Ambrocio Alonso HPI: 05/20 23:34 This 60 yrs old Male presents to ER via Wheelchair with complaints of missed jarrell dialysis today, Breathing Difficulty. 23:34 The patient has shortness of breath at rest, with light activity. Onset: The jarrell symptoms/episode began/occurred 3 day(s) ago. Duration: The symptoms are continuous, and are steadily getting worse. The patient's shortness of breath is aggravated by exertion, light activity. Associated signs and symptoms: Pertinent positives: non-productive cough. Severity of symptoms: At their worst the symptoms were mild in the emergency department the symptoms are unchanged. The patient has not experienced similar symptoms in the past. Historical: - Allergies: 20:01 NKA; lp1 - Home Meds: 20:01 acetaminophen-codeine 300-30 mg Oral tab every 6 hours [Active]; amlodipine-benazepril lp1 10-20 mg Oral cap three times a day [Active]; carvedilol 6.25 mg Oral tab 2 times per day [Active]; furosemide 80 mg Oral tab 1 tab 3 times per day [Active]; hydralazine 50 mg Oral tab three times a day [Active]; hydroxyzine HCl 25 mg Oral tab 3 times per day [Active]; Fauzia-Conor 0.8 mg Oral tab daily [Active]; tamsulosin 0.4 mg Oral cp24 1 cap once daily [Active]; - PMHx: 20:01 CHF; Diabetes - NIDDM; ESRD; Hypertension; insomnia; lp1 - Immunization history:: Adult Immunizations up to date. - Social history:: Smoking status: Patient denies any tobacco usage or history of. ROS: 23:35 Constitutional: Negative for fever, chills, and weight loss, Eyes: Negative for injury, jarrell pain, redness, and discharge, ENT: Negative for injury, pain, and discharge, Neck: Negative for injury, pain, and swelling, Cardiovascular: Negative for chest pain, palpitations, and edema, Abdomen/GI: Negative for abdominal pain, nausea, vomiting, diarrhea, and constipation, Back: Negative for injury and pain, : Negative for injury, bleeding, discharge, and swelling, MS/Extremity: Negative for injury and deformity, Skin: Negative for injury, rash, and discoloration, Neuro: Negative for headache, weakness, numbness, tingling, and seizure, Psych: Negative for depression, anxiety, suicide ideation, homicidal ideation, and hallucinations, Allergy/Immunology: Negative for hives, rash, and allergies, Endocrine: Negative for neck swelling, polydipsia, polyuria, polyphagia, and marked weight changes, Hematologic/Lymphatic: Negative for swollen nodes, abnormal bleeding, and unusual bruising. 23:35 Respiratory: Positive for cough, shortness of breath, at rest. Exam: 23:39 Constitutional: This is a well developed, well nourished patient who is awake, alert, jarrell and in no acute distress. Head/Face: Normocephalic, atraumatic. Eyes: Pupils equal round and reactive to light, extra-ocular motions intact. Lids and lashes normal. Conjunctiva and sclera are non-icteric and not injected. Cornea within normal limits. Periorbital areas with no swelling, redness, or edema. ENT: Nares patent. No nasal discharge, no septal abnormalities noted. Tympanic membranes are normal and external auditory canals are clear. Oropharynx with no redness, swelling, or masses, exudates, or evidence of obstruction, uvula midline. Mucous membranes moist. Neck: Trachea midline, no thyromegaly or masses palpated, and no cervical lymphadenopathy. Supple, full range of motion without nuchal rigidity, or vertebral point tenderness. No Meningismus. Chest/axilla: Normal chest wall appearance and motion. Nontender with no deformity. No lesions are appreciated. Cardiovascular: Regular rate and rhythm with a normal S1 and S2. No gallops, murmurs, or rubs. Normal PMI, no JVD. No pulse deficits. Abdomen/GI: Soft, non-tender, with normal bowel sounds. No distension or tympany. No guarding or rebound. No evidence of tenderness throughout. Back: No spinal tenderness. No costovertebral tenderness. Full range of motion. Male : Normal genitalia with no discharge or lesions. Skin: Warm, dry with normal turgor. Normal color with no rashes, no lesions, and no evidence of cellulitis. MS/ Extremity: Pulses equal, no cyanosis. Neurovascular intact. Full, normal range of motion. Neuro: Awake and alert, GCS 15, oriented to person, place, time, and situation. Cranial nerves II-XII grossly intact. Motor strength 5/5 in all extremities. Sensory grossly intact. Cerebellar exam normal. Normal gait. Psych: Awake, alert, with orientation to person, place and time. Behavior, mood, and affect are within normal limits. 23:39 Respiratory: the patient does not display signs of respiratory distress, Respirations: normal, Breath sounds: rales, that are mild, are scattered, are located in both bases, bronchial sounds, rhonchi. Vital Signs: 20:00 BP 139 / 77; Pulse 66; Resp 18; Temp 98.4; Pulse Ox 100% on R/A; Weight 77.11 kg (R); lp1 Height 5 ft. 7 in. (170.18 cm); 23:56 BP 136 / 80; Pulse 67; Resp 20; Temp 98.3; Pulse Ox 100% on R/A; ch4 05/21 03:50 BP 140 / 86; Pulse 76; Resp 18; Temp 98.2; Pulse Ox 100% on R/A; ch4 05/20 20:00 Body Mass Index 26.63 (77.11 kg, 170.18 cm) lp1 MDM: 05/20 22:58 Patient medically screened. jarrell 23:40 Differential diagnosis: Anemia Anxiety Reaction CHF exacerbation, pulmonary edema, jarrell reactive airway disease. Antibiotic administration: Not indicated. The patient's Wells Deep Vein Thrombosis Score was calculated as follows: Total Score: 0-2 Pts- Low Risk. The patient's pulmonary embolism risk score was calculated as follows: Total Score: 0-2 points. This patient was found to be at low risk for a pulmonary embolism by using the Well's assessment criteria. Immunization status: Influenza vaccine: within last 5 years. Data reviewed: vital signs, nurses notes, lab test result(s), EKG, radiologic studies, plain films. Data interpreted: monitor technician: rate is 66 beats/min, rhythm is regular, Pulse oximetry: on room air is 100 %. Test interpretation: by ED physician or midlevel provider: ECG, plain radiologic studies. 05/20 21:39 Order name: Basic Metabolic Panel cp 05/20 21:39 Order name: CBC with Diff cp 05/20 21:39 Order name: LFT's; Complete Time: 00:44 cp 05/20 21:39 Order name: Magnesium; Complete Time: 00:44 cp 05/20 21:39 Order name: NT PRO-BNP; Complete Time: 00:44 cp 05/20 21:39 Order name: PT-INR; Complete Time: 00:32 cp 05/20 21:39 Order name: Troponin (emerg Dept Use Only); Complete Time: 00:44 cp 05/20 21:39 Order name: Basic Metabolic Panel; Complete Time: 00:44 EDMS 05/21 04:29 Order name: COVID-19 : Document "Date of Symptom Onset" if Symptomatic. tt3 05/21 04:48 Order name: CORONAVIRUS EDMS 05/21 05:36 Order name: SARS-COV-2 RT PCR EDMS 05/21 09:24 Order name: CBC with Automated Diff EDMS 05/21 10:38 Order name: Comprehensive Metabolic Panel EDMS 05/21 10:38 Order name: Phosphorus EDMS 05/20 21:39 Order name: XRAY Chest (1 view) cp 05/21 10:38 Order name: C-Reactive Protein EDMS 05/21 10:38 Order name: Magnesium EDMS 05/21 10:38 Order name: Ferritin EDMS 05/21 12:28 Order name: Glucose, Ancillary Testing EDMS 05/21 16:28 Order name: Glucose, Ancillary Testing EDMS 05/21 18:08 Order name: Glucose, Ancillary Testing EDMS 05/21 18:42 Order name: Potassium EDMS 05/21 23:26 Order name: Glucose, Ancillary Testing EDMS 05/22 06:24 Order name: Basic Metabolic Panel EDMS 05/22 09:47 Order name: CBC with Automated Diff EDMS 05/22 10:42 Order name: Comprehensive Metabolic Panel EDMS 05/22 10:42 Order name: Phosphorus EDMS 05/22 10:42 Order name: Magnesium EDMS 05/22 13:18 Order name: Glucose, Ancillary Testing EDMS 05/20 21:39 Order name: EKG; Complete Time: 21:40 cp 05/20 21:39 Order name: Cardiac monitoring; Complete Time: 23:56 cp 05/20 21:39 Order name: EKG - Nurse/Tech; Complete Time: 23:56 cp 08 21:39 Order name: IV Saline Lock; Complete Time: 23:56 cp 05/20 21:39 Order name: Labs collected and sent; Complete Time: 23:56 cp 05/20 21:39 Order name: O2 Per Protocol; Complete Time: 23:56 cp 05/20 21:39 Order name: O2 Sat Monitoring; Complete Time: 23:56 cp 05/21 03:33 Order name: CONS Physician Consult EDMS Administered Medications: 05/21 02:26 Drug: Kayexalate (polystyrene) 30 grams Route: PO; ch4 08:33 Follow up: Response: No adverse reaction bp Disposition Summary: 05/20/21 23:45 Hospitalization Ordered Hospitalization Status: Observation jarrell Provider: Tisha Oliveros cha Condition: Stable jarrell Problem: new jarrell Symptoms: have improved jarrell Bed/Room Type: Standard jarrell Location: [facility] ER HOLD(05/21/21 05:41) tl1 Room Assignment: ERHOLD-(05/21/21 05:41) tl1 Diagnosis - End stage renal disease - on HD jarrell - Unspecified combined systolic (congestive) and diastolic (congestive) heart failure jarrell - Type 2 diabetes mellitus with hyperglycemia jarrell - Hyperkalemia jarrell - Coronavirus infection, unspecified jarrell Forms: - Medication Reconciliation Form jarrell - SBAR form jarrell Signatures: Dispatcher [employer] EDMS Ambrocio Alonso MD MD cha Pena, Laura RN RN lp1 Subha Mon RN RN tl1 Ambrocio Mcdowell PA PA cp Herman, Christina, RN RN [facility] Henok Pinto RN bp Corrections: (The following items were deleted from the chart) 03:35 08/12 23:45 jarrell tl1 05/21 05:41 0812 23:45 Telemetry/MedSurg (observation) jarrell tl1 05/21 05:41 03:35 220 tl1 tl1
--- NOTE | 2021-05-20 23:46 | ER ---
Nurse's Notes [facility] Name: Alex Cagle Age: 60 yrs Sex: Male : 1960 Arrival Date: 05/20/2021 Time: 19:38 Bed 5 Private MD: Toya Andrew H Diagnosis: End stage renal disease-on HD;Unspecified combined systolic (congestive) and diastolic (congestive) heart failure;Type 2 diabetes mellitus with hyperglycemia;Hyperkalemia;Coronavirus infection, unspecified Presentation: 05/20 20:00 Chief complaint: Patient states: "I have fluid overload, I missed dialysis today since lp1 I was in the hospital"; Reports shortness of breath. Coronavirus screen: Client denies travel out of the [place] in the last 14 days. At this time, the client does not indicate any symptoms associated with coronavirus-19. Ebola Screen: No symptoms or risks identified at this time. Initial Sepsis Screen: Does the patient meet any 2 criteria? No. Patient's initial sepsis screen is negative. Does the patient have a suspected source of infection? No. Patient's initial sepsis screen is negative. Risk Assessment: Do you want to hurt yourself or someone else? Patient reports no desire to harm self or others. Onset of symptoms was May 20, 2021. 20:00 Method Of Arrival: Wheelchair lp1 20:00 Acuity: DEJAN 3 lp1 Triage Assessment: 20:02 General: Appears in no apparent distress. Behavior is calm, cooperative. Respiratory: lp1 Reports shortness of breath Airway is patent Respiratory effort is even, unlabored, Respiratory pattern is regular, Onset: The symptoms/episode began/occurred gradually. Derm: Skin is intact, Skin is dry, Skin is normal. Historical: - Allergies: 20:01 NKA; lp1 - Home Meds: 20:01 acetaminophen-codeine 300-30 mg Oral tab every 6 hours [Active]; amlodipine-benazepril lp1 10-20 mg Oral cap three times a day [Active]; carvedilol 6.25 mg Oral tab 2 times per day [Active]; furosemide 80 mg Oral tab 1 tab 3 times per day [Active]; hydralazine 50 mg Oral tab three times a day [Active]; hydroxyzine HCl 25 mg Oral tab 3 times per day [Active]; Fauzia-Conor 0.8 mg Oral tab daily [Active]; tamsulosin 0.4 mg Oral cp24 1 cap once daily [Active]; - PMHx: 20:01 CHF; Diabetes - NIDDM; ESRD; Hypertension; insomnia; lp1 - Immunization history:: Adult Immunizations up to date. - Social history:: Smoking status: Patient denies any tobacco usage or history of. Screenin/13 05:23 Abuse screen: Denies threats or abuse. Denies injuries from another. Nutritional lp1 screening: No deficits noted. Tuberculosis screening: No symptoms or risk factors identified. Fall Risk None identified. Assessment: 05:23 Reassessment: Patient ambulating in hallway independently; aware of pending admission lp1 to floor. Vital Signs: 05/20 20:00 BP 139 / 77; Pulse 66; Resp 18; Temp 98.4; Pulse Ox 100% on R/A; Weight 77.11 kg (R); lp1 Height 5 ft. 7 in. (170.18 cm); 23:56 BP 136 / 80; Pulse 67; Resp 20; Temp 98.3; Pulse Ox 100% on R/A; ch4 05/21 03:50 BP 140 / 86; Pulse 76; Resp 18; Temp 98.2; Pulse Ox 100% on R/A; ch4 05/20 20:00 Body Mass Index 26.63 (77.11 kg, 170.18 cm) lp1 ED Course: 05/20 19:38 Patient arrived in ED. es 19:40 Toya Andrew DO is Private Physician. es 20:01 Triage completed. lp1 20:01 Arm band placed on. lp1 22:29 XRAY Chest (1 view) In Process Unspecified. EDMS 22:58 Ambrocio Alonso MD is Attending Physician. jarrell 23:01 Maria Alejandra Hall, KATIANA is Primary Nurse. ch4 23:42 Tisha Oliveros MD is Hospitalizing Provider. jarrell 23:56 Basic Metabolic Panel Sent. ch4 23:57 Inserted saline lock: 20 gauge in left wrist, using aseptic technique. hand, using ch4 aseptic technique. 05/21 05:23 Patient has correct armband on for positive identification. lp1 05:23 No provider procedures requiring assistance completed. Patient admitted, IV remains in lp1 place. 08:32 Primary Nurse role handed off by Maria Alejandra Hall, RN bp 08:32 Henok Pinto, RN is Primary Nurse. bp Administered Medications: 02:26 Drug: Kayexalate (polystyrene) 30 grams Route: PO; ch4 08:33 Follow up: Response: No adverse reaction bp Outcome: 05/20 23:45 Decision to Hospitalize by Provider. [facility] 05/21 05:23 Condition: stable lp1 Instructed on the need for admit. 05/22 13:59 Patient left the ED. iw Signatures: Dispatcher [employer] EDAmbrocio Damon MD MD cha Salyer, Edna es Williams, Irene, RN RN Rashida Simms RN RN 1 Henok Pinto, KATIANA RN bp Maria Alejandra Hall, RN RN ch4
[2021-05-21 00:15] LABS: Absolute Lymphocytes (CBC) 0.7 K/uL (0.7-4.9); Basophils % 0.9 % (0-1.3); Lymphocytes % 18.6 % (15.3-44.8); MPV 7.8 fL (7.6-11.3); RBC Red Blood Cell Count 3.41 M/uL (4.33-5.43)
[2021-05-21 00:19] LABS: Protime INR 0.94
[2021-05-21 00:34] LABS: ALT/SGPT 17 U/L (12-78); AST/SGOT 11 U/L (15-37); Albumin 3.5 g/dL (3.4-5.0); Alkaline Phosphatase 123 U/L (45-117); BUN Blood Urea Nitrogen 70 mg/dL (7-18); Bicarbonate 19 mmol/L (21-32); Bilirubin Direct < 0.1 mg/dL (0-0.2); Bilirubin Total 0.3 mg/dL (0.2-1.0); Glucose Level 75 mg/dL (74-106); Magnesium 2.8 mg/dL (1.8-2.4); NT PRO-BNP 24978 pg/mL (<125); Potassium 5.2 mmol/L (3.5-5.1); Protein, Total 6.5 g/dL (6.4-8.2); Sodium Level 135 mmol/L (136-145); Troponin (Emerg Dept Use Only) < 0.02 ng/mL (0.0-0.045)
[2021-05-21] MEDS ORDERED: SOD POLYSTYREN SUL 15 GM/60 ML UCUP ONE ×3 (02:49→20:08)
--- NOTE | 2021-05-21 03:48 | P.HP ---
Certification for Inpatient Patient admitted to: Inpatient With expected LOS: <2 Midnights Patient will require the following post-hospital care: None Practitioner: I am a practitioner with admitting privileges, knowledge of patient current condition, hospital course, and medical plan of care. Services: Services provided to patient in accordance with Admission requirements found in Title 42 Section 412.3 of the Code of Federal Regulations Patient History Date of Service: 05/21/21 Reason for admission: missed dialysis History of Present Illness: Mr. Cagle is a 60 yo M with CHF, DM, ESRD on HD MWF, and HTN who presents with edema and SOB after missing dialysis on Monday because his tested positive for COVID. H/H 9.9. Plt 137. Na 135. K 5.2. HCO3 19. BUN 70. Cr 13.9. GFR 4. alk phos 123. BNP 98171. Given kayealate in the ED. Allergies No Known Allergies Allergy (Verified 01/01/21 21:09) Home Medications: Amlodipine Besylate/Benazepril [Amlodipine-Benazepril 10-20 mg] 1 tab PO TID 11/27/20 Calcium Acetate [Phoslo] 2 cap PO BID 11/27/20 Calcium Acetate [Phoslo] 6 cap PO TIDWM 11/27/20 Codeine/APAP [Tylenol #3*] 1 tab PO QID PRN 11/27/20 Ferric Citrate [Auryxia] 1 tab PO BID 11/27/20 Ferric Citrate [Auryxia] 2 tab PO TIDWM 11/27/20 Folic Acid/Vit B Complex and C [Fauzia-Conor Tablet] 1 tab PO DAILY 11/27/20 Furosemide [Lasix] 80 mg PO BID 11/27/20 Tamsulosin [Flomax*] 1 cap PO BEDTIME 11/27/20 diazePAM [Diazepam] 10 mg PO BID PRN 11/27/20 Hydralazine HCl 100 mg PO Q8H 30 Days #90 tablet 11/30/20 carvediloL [Coreg*] 25 mg PO BID 30 Days #60 tab 11/30/20 - Past Medical/Surgical History Diabetic: Yes -: End-stage renal disease on hemodialysis -: Hypertension -: HTN -: DM -: Peritoneal dialysis port -: shoulder surgery Psychosocial/ Personal History: Patient - Family History Father -: Heart disease - Social History Smoking Status: Unknown if ever smoked Alcohol use: No CD- Drugs: No Caffeine use: No Place of Residence: Home Review of Systems 10-point ROS is otherwise unremarkable Respiratory: Shortness of Breath Cardiovascular: Edema Physical Examination - Physical Exam General: Alert, In no apparent distress HEENT: Atraumatic, PERRLA, Mucous membr. moist/pink, EOMI, Sclerae nonicteric Neck: Supple, 2+ carotid pulse no bruit, No LAD, Without JVD or thyroid abnormality Respiratory: Clear to auscultation bilaterally, Normal air movement Cardiovascular: Normal pulses, Regular rate/rhythm, Normal S1 S2, No gallops, No rubs, No murmurs, Edema Capillary refill: <2 Seconds Gastrointestinal: Normal bowel sounds, No tenderness Musculoskeletal: No tenderness Integumentary: No rashes Neurological: Normal gait, Normal speech, Normal strength at 5/5 x4 extr, Normal tone, Normal affect Lymphatics: No axilla or inguinal lymphadenopathy Urinary: Dialysis catheter - Studies Laboratory Data (last 24 hrs) 05/20/21 23:50: PT 10.8, INR 0.94 05/20/21 23:50: WBC 3.80 L D, Hgb 9.9 L, Hct 30.0 L, Plt Count 137 L 05/20/21 23:50: Sodium 135 L, Potassium 5.2 H, BUN 70 H D, Creatinine 13.90 H* D, Glucose 75, Magnesium 2.8 H, Total Bilirubin 0.3, AST 11 L, ALT 17, Alkaline Phosphatase 123 H Assessment and Plan - Problems (Diagnosis) (1) Anemia in chronic kidney disease (CKD) Current Visit: No Status: Chronic Qualifiers: Chronic kidney disease stage: on chronic dialysis Qualified Code(s): N18.6 - End stage renal disease; D63.1 - Anemia in chronic kidney disease; Z99.2 - Dependence on renal dialysis (2) CHF (congestive heart failure) Current Visit: No Status: Chronic Qualifiers: Heart failure type: unspecified Heart failure chronicity: unspecified Qualified Code(s): I50.9 - Heart failure, unspecified (3) Diabetes mellitus Current Visit: No Status: Chronic Qualifiers: Diabetes mellitus type: 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 2 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 Diabetes mellitus complication status: with kidney complications Diabetes mellitus complication detail: with chronic kidney disease Chronic kidney disease stage: on chronic dialysis Qualified Code(s): E11.22 - Type 2 diabetes mellitus with diabetic chronic kidney disease; N18.6 - End stage renal disease; Z99.2 - Dependence on renal dialysis (4) ESRD (end stage renal disease) on dialysis Current Visit: No Status: Chronic (5) HTN (hypertension) Current Visit: No Status: Chronic Qualifiers: Hypertension type: essential hypertension Qualified Code(s): I10 - Essential (primary) hypertension - Plan nephrology consulted, dialysis in the AM on tele, repeat BMP in the AM continue IV lasix PRN IV hydralazine sliding scale insulin and accuchecks reconcile and continue home medications renal diet, fluid restrict 1500cc daily DVT ppx Discharge Plan: Home Plan to discharge in: 24 Hours - Advance Directives Does patient have a Living Will: No Does patient have a Durable POA for Healthcare: No - Code Status/Comfort Care Code Status Assessed: Yes (full code ) Critical Care: No Time Spent Managing Pts Care (In Minutes): 70
--- NOTE | 2021-05-21 07:40 | P.PN ---
Subjective Date of Service: 05/21/21 Primary Care Provider: Dr. Andrew, Nephrology-Dr. Ellison Chief Complaint: missed dialysis Subjective: Other (Patient missed dialysis this past week.) Physical Examination - Studies Laboratory Data (last 24 hrs) 05/20/21 23:50: PT 10.8, INR 0.94 05/20/21 23:50: WBC 3.80 L D, Hgb 9.9 L, Hct 30.0 L, Plt Count 137 L 05/20/21 23:50: Sodium 135 L, Potassium 5.2 H, BUN 70 H D, Creatinine 13.90 H* D, Glucose 75, Magnesium 2.8 H, Total Bilirubin 0.3, AST 11 L, ALT 17, Alkaline Phosphatase 123 H Assessment & Plan Discharge Plan: Home Plan to discharge in: 24 Hours Physician Review Additional Text: COVID: Positive Physical exam: General: Alert, In no apparent distress HEENT: Atraumatic, PERRLA, Mucous membr. moist/pink, EOMI, Sclerae nonicteric Neck: Supple, 2+ carotid pulse no bruit, No LAD, Without JVD or thyroid abnormality Respiratory: Clear to auscultation bilaterally, Normal air movement Cardiovascular: Normal pulses, Regular rate/rhythm, Normal S1 S2, No gallops, No rubs, No murmurs, Edema Capillary refill: <2 Seconds Gastrointestinal: Normal bowel sounds, No tenderness Musculoskeletal: No tenderness Integumentary: No rashes Neurological: Normal gait, Normal speech, Normal strength at 5/5 x4 extr, Normal tone, Normal affect Lymphatics: No axilla or inguinal lymphadenopathy Dialysis: Dialysis catheter Impression: End-stage renal disease on hemodialysis with noncompliance with noted hyperkalemia Hypertension Anemia of chronic disease Chronic diastolic CHF Chronic pain Plan: End-stage renal disease on hemodialysis with noncompliance with noted hyperkalemia: Patient given treatment for hyperkalemia. Patient to have dialysis today. Will discuss with nephrology. Likely discharge today after dialysis. Covid positive: Patient not requiring any will monitor room air saturations. Will check CRP and ferritin. Will provide vitamin supplementation. Hypertension: Continue with blood pressure medication Anemia of chronic disease: Overall stable. Monitor closely. Chronic diastolic CHF: Continue 1500 cc/day fluid restriction. Patient will receive dialysis. Patient without need requiring oxygen. Chronic pain: Provide medication for pain. DVT prophylaxis: Heparin CODE STATUS: Full code Advance care [id number] minutes: Home at discharge Time Spent Managing Pts Care (In Minutes): 55
--- NOTE | 2021-05-21 07:45 | P.DS ---
Admission Date: 05/21/21 Discharge Date: 05/21/21 Primary Care Provider: Dr. Andrew, Nephrology-Dr. Ellison Disposition: ROUTINE DISCHARGE Discharge Condition: GOOD Reason for Admission: missed dialysis Consultations: Nephrology-Dr. Ellison Procedures: COVID: Positive Medical problem list: End-stage renal disease on hemodialysis with noncompliance with noted hyperkalemia Hypertension Anemia of chronic disease Chronic diastolic CHF Chronic pain Brief History of Present Illness: 60-year-old male with history of end-stage renal disease on hemodialysis, CHF, anemia of chronic disease and hypertension. Patient reported pain and shortness of breath. Patient had missed dialysis this past week. He presented to the ER. Patient with hyperkalemia. Patient was treated in the emergency room. Patient admitted for treatment for dialysis. Patient was positive for Covid. Patient appears to be asymptomatic. Hospital Course: Patient admitted due to end-stage renal disease on hemodialysis with noncompliance. Patient was found to be hyperkalemic. Patient was given treatment for hyperkalemia. Patient admitted for dialysis. Nephrology was consulted. Patient received dialysis. Patient has done well post dialysis. T he patient will be discharged home. Compliance with dialysis addressed in detail. Because of his Covid positive status the patient will also need dialysis as an outpatient tomorrow at the [facility]. Nephrology will make arrangements. He will continue with dialysis every Monday, and Monday. Patient was positive for Covid. Room air saturations within normal range. Patient appears to be asymptomatic at this time. At discharge will recommend prednisone 20 mg 1 pill daily for 7 days. Will also recommend to continue with vitamin supplementation at discharge including thiamine 100 mg daily, zinc 220 mg daily, vitamin C 500 mg 3 times a day and vitamin D 2000 units daily. Patient will continue with Covid 19 instructions including handwashing, facemask use, social distancing. Patient with hypertension. At discharge patient will continue with his current medication. Recommend to maintain blood pressure less than 130/80. Further adjustment can be done by his PCP or nephrology. Patient with anemia chronic disease. At discharge this can be monitored as an outpatient. Patient with chronic diastolic CHF. Patient will continue with the 1500 cc/day fluid restriction. Patient will continue with his current medications. Recommend to monitor his weight daily. If his weight increases by more than 5 pounds he is to contact his PCP for further recommendation. Patient with chronic pain. Patient will continue with his current medications at home. Patient may benefit with chronic pain management referral to further evaluate. General: Alert, In no apparent distress, Oriented x3 HEENT: Atraumatic Neck: Supple Respiratory: Clear to auscultation bilaterally, Normal air movement Cardiovascular: Normal pulses, Regular rate/rhythm Gastrointestinal: Normal bowel sounds, No tenderness, No masses, No rebound, No guarding Musculoskeletal: No erythema, No tenderness, No warmth Integumentary: No tenderness/swelling Neurological: Normal speech, Normal strength at 5/5 x4 extr, Normal tone, Normal affect Laboratory Data at Discharge: WBC 3.80 K/uL (4.3-10.9) L D 05/20/21 23:50 Hgb 9.9 g/dL (13.6-17.9) L 05/20/21 23:50 Hct 30.0 % (39.6-49.0) L 05/20/21 23:50 Plt Count 137 K/uL (152-406) L 05/20/21 23:50 PT 10.8 SECONDS (9.5-12.5) 05/20/21 23:50 INR 0.94 05/20/21 23:50 Sodium 135 mmol/L (136-145) L 05/20/21 23:50 Potassium 5.2 mmol/L (3.5-5.1) H 05/20/21 23:50 BUN 70 mg/dL (7-18) H D 05/20/21 23:50 Creatinine 13.90 mg/dL (0.55-1.3) H* D 05/20/21 23:50 Glucose 75 mg/dL (74-106) 05/20/21 23:50 Magnesium 2.8 mg/dL (1.8-2.4) H 05/20/21 23:50 Total Bilirubin 0.3 mg/dL (0.2-1.0) 05/20/21 23:50 AST 11 U/L (15-37) L 05/20/21 23:50 ALT 17 U/L (12-78) 05/20/21 23:50 Alkaline Phosphatase 123 U/L (45-117) H 05/20/21 23:50 Home Medications: Amlodipine Besylate/Benazepril [Amlodipine-Benazepril 10-20 mg] 1 tab PO TID 11/27/20 Calcium Acetate [Phoslo] 2 cap PO BID 11/27/20 Calcium Acetate [Phoslo] 6 cap PO TIDWM 11/27/20 Codeine/APAP [Tylenol #3*] 1 tab PO QID PRN 11/27/20 Ferric Citrate [Auryxia] 1 tab PO BID 11/27/20 Ferric Citrate [Auryxia] 2 tab PO TIDWM 11/27/20 Folic Acid/Vit B Complex and C [Fauzia-Conor Tablet] 1 tab PO DAILY 11/27/20 Furosemide [Lasix] 80 mg PO BID 11/27/20 Tamsulosin [Flomax*] 1 cap PO BEDTIME 11/27/20 diazePAM [Diazepam] 10 mg PO BID PRN 11/27/20 Hydralazine HCl 100 mg PO Q8H 30 Days #90 tablet 11/30/20 carvediloL [Coreg*] 25 mg PO BID 30 Days #60 tab 11/30/20 Physician Discharge Instructions: Patient admitted due to end-stage renal disease on hemodialysis with noncompliance. Patient was found to be hyperkalemic. Patient was given treatment for hyperkalemia. Patient admitted for dialysis. Nephrology was consulted. Patient received dialysis. Patient has done well post dialysis. The patient will be discharged home. Compliance with dialysis addressed in detail. Because of his Covid positive status the patient will also need dialysis as an outpatient tomorrow at the [facility]. Nephrology will make arrangements. He will continue with dialysis every Monday, and Monday. Patient was positive for Covid. Room air saturations within normal range. Patient appears to be asymptomatic at this time. At discharge will recommend prednisone 20 mg 1 pill daily for 7 days. Will also recommend to continue with vitamin supplementation at discharge including thiamine 100 mg daily, zinc 220 mg daily, vitamin C 500 mg 3 times a day and vitamin D 2000 units daily. Patient will continue with Covid 19 instructions including handwashing, facemask use, social distancing. Patient with hypertension. At discharge patient will continue with his current medication. Recommend to maintain blood pressure less than 130/80. Further adjustment can be done by his PCP or nephrology. Patient with anemia chronic disease. At discharge this can be monitored as an outpatient. Patient with chronic diastolic CHF. Patient will continue with the 1500 cc/day fluid restriction. Patient will continue with his current medications. Recommend to monitor his weight daily. If his weight increases by more than 5 pounds he is to contact his PCP for further recommendation. Patient with chronic pain. Patient will continue with his current medications at home. Patient may benefit with chronic pain management referral to further evaluate. Diet: Renal Activity: Ad adina Followup: Toya Andrew DO, DO [Primary Care Provider] - Time spent managing pt's care (in minutes): 55
[2021-05-21] MEDS ORDERED: FUROSEMIDE 40 MG/4 ML VIAL IV ONE ×2 (08:38→22:43)
[2021-05-21] MEDS ORDERED: ONDANSETRON 4 MG/2 ML VIAL IV PRN (08:38)
[2021-05-21] MEDS ORDERED: HYDRALAZINE HCL 20 MG/ML VIAL IV PRN (08:38)
[2021-05-21] MEDS: INSULIN -REGULAR HUMAN 50 UNIT/0.5 ML ML SQ SCH ×4 (08:38→21:00)
[2021-05-21] MEDS ORDERED: ACETAMINOPHEN 500 MG TAB PO PRN (08:38)
--- NOTE | 2021-05-21 08:43 | RAD REPORT ---
EXAM DESCRIPTION: RAD - Chest Single View - 05/20/2021 10:29 pm CLINICAL HISTORY: SOB Chest pain. COMPARISON: Chest Single View dated 05/18/2021; Chest Single View dated 01/01/2021; Chest Single View dated 11/26/2020; Chest Single View dated 11/24/2020 FINDINGS: Portable technique limits examination quality. Mild interstitial pulmonary edema is seen. The heart is moderately enlarged in size. Left-sided dialy sis catheter is unchanged in position. IMPRESSION: Mild CHF versus volume overload pattern.
[2021-05-21] MEDS ORDERED: ZINC SULFATE 220 MG CAP PO SCH (09:00)
[2021-05-21] MEDS ORDERED: THIAMINE HCL 100 MG TABLET PO SCH (09:00)
[2021-05-21] MEDS: FUROSEMIDE 40 MG/4 ML VIAL IV SCH ×2 (09:00→17:00)
[2021-05-21] MEDS ORDERED: MULTIVITAMINS,THERAPEUT 1 TAB PO SCH (09:00)
[2021-05-21] MEDS: HYDRALAZINE HCL 25 MG TABLET PO SCH ×2 (09:00→17:00)
[2021-05-21] MEDS: ASCORBIC ACID 500 MG TABLET PO SCH ×3 (09:00→21:00)
[2021-05-21] MEDS: carvediloL 25 MG TAB PO SCH ×2 (09:00→21:00)
[2021-05-21] MEDS ORDERED: VITAMIN D 1000 UNIT TAB PO SCH (09:00)
[2021-05-21 09:21] LABS: Absolute Lymphocytes (CBC) 0.6 K/uL (0.7-4.9); Basophils % 0.7 % (0-1.3); Hematocrit 30.9 % (39.6-49.0); Lymphocytes % 15.5 % (15.3-44.8); MPV 7.8 fL (7.6-11.3); RBC Red Blood Cell Count 3.53 M/uL (4.33-5.43)
[2021-05-21 09:49] LABS: Albumin 3.9 g/dL (3.4-5.0); Bilirubin Total 0.4 mg/dL (0.2-1.0); C-Reactive Protein 3.14 mg/L (<3.00); Ferritin 527.5 ng/mL (26-388); Magnesium 2.7 mg/dL (1.8-2.4); Potassium 5.4 mmol/L (3.5-5.1); Protein, Total 7.1 g/dL (6.4-8.2)
[2021-05-21] MEDS: CODEINE 30MG/APAP 300MG TAB PO PRN ×2 (10:00→20:00)
[2021-05-21] MEDS ORDERED: DIAZEPAM 5 MG TABLET ONE ×3 (10:24→21:17)
[2021-05-21] MEDS ORDERED: ASCORBIC ACID 500 MG TABLET ONE ×3 (10:24→21:17)
[2021-05-21] MEDS ORDERED: THIAMINE HCL 100 MG TABLET ONE (10:25)
[2021-05-21] MEDS ORDERED: CODEINE 30MG/APAP 300MG TAB ONE ×3 (10:25→21:18)
[2021-05-21] MEDS ORDERED: ZINC SULFATE 220 MG CAP ONE (10:25)
[2021-05-21] MEDS ORDERED: HYDRALAZINE HCL 25 MG TABLET ONE ×3 (10:25→21:18)
[2021-05-21] MEDS ORDERED: VITAMIN D 1000 UNIT TAB ONE (10:26)
[2021-05-21] MEDS ORDERED: FUROSEMIDE 40 MG/4 ML VIAL ONE ×2 (10:26→18:03)
[2021-05-21] MEDS: DIAZEPAM 5 MG TABLET PO PRN ×2 (10:33→20:00)
[2021-05-21 10:38] LABS: Phosphorus 9.4 mg/dL (2.5-4.9)
[2021-05-21] MEDS ORDERED: SOD POLYSTYREN SUL 15 GM/60 ML UCUP PO ONE ×2 (16:12→19:04)
[2021-05-21 17:26] VITALS: BMI 26.6
[2021-05-21] MEDS ORDERED: SOD POLYSTYREN SUL 15 GM/60 ML UCUP PO STA (19:48)
[2021-05-21] MEDS ORDERED: TAMSULOSIN 0.4 MG SR CAP PO SCH (21:00)
[2021-05-21] MEDS ORDERED: SODIUM BICARB 325 MG TAB PO ONE (21:00)
[2021-05-21] MEDS ORDERED: carvediloL 6.25 MG TAB ONE (21:18)
[2021-05-21] MEDS ORDERED: TAMSULOSIN 0.4 MG SR CAP ONE (21:18)
--- NOTE | 2021-05-21 22:56 | CON ---
Date of Consultation: 05/21/2021 Chief Complaint: End-stage renal disease, on dialysis. History Of Present Illness: The patient has history of congestive heart failure, diabetic kidney dis ease. He has been dialyzed on Monday, Monday, Monday. He came to emergency room because his was tested positive for COVID. He had COVID test done and was found to be positive. Potassium leve l was 5.2. The patient was treated with Kayexalate and subsequently potassium was 5.4. There is mil d metabolic acidosis. Bicarbonate is 19, BUN 70, creatinine 13.9. The patient was given Kayexalate second dose when potassium was 5.4. He although did not have bowel movement and IV bicarbonate 60 mE q was ordered to stabilize potassium and treat metabolic acidosis related to chronic kidney disease, end-stage renal disease. Past Medical History: End-stage renal disease, hypertension, hyperlipidemia, diabetes mellitus, shou lder surgery, peritoneal dialysis port. Family History: Heart disease. Social History: Denies tobacco, alcohol, or illicit drugs. Review of Systems: Denies complaints. He remains somewhat lethargic. Denies pain, shortness of breath, fever. Physical Examination: General: Not in acute distress. Eyes: Anicteric sclerae. Neck: Supple. No bruits. Heart: S1, S2. No pericardial friction rub. Abdomen: Soft, benign. Extremities: No edema. No clubbing. No cyanosis. Laboratory Data: WBC 3.8, hemoglobin 9.6, platelet count 137,000. Sodium 135, potassium 5.2, BUN 70 , creatinine 13.9, glucose 75. Impression And Plan: 1.Anemia in chronic kidney disease. Hemoglobin level is accessible and plan is to continue HASEEB with dialysis. 2.Congestive heart failure, chronic compensated. Continue p.o. fluid restriction, low-sodium diet. 3.Diabetes mellitus. Continue insulin for glucose control. 4.The patient was treated with IV Lasix for hyperkalemia and to stabilize volemia. 5.End-stage renal disease. The patient has COVID positive test. Plan is to initiate dialysis as so on as possible. Continue p.o. fluid restriction, low-potassium diet, and low-sodium diet. 6.Hyperphosphatemia. Continue binders. EB/MODL Voice ID: [id number] Report ID: [id number]
[2021-05-21] MEDS ORDERED: SODIUM BICARB 50 MEQ/50ML VIAL ONE (23:56)
[2021-05-21] MEDS ORDERED: HYDROCODONE/APAP 5/325 MG TAB PO ONE (23:56)
[2021-05-22] MEDS ORDERED: HYDROCODONE/APAP 5/325 MG TAB ONE (00:21)
[2021-05-22] MEDS ORDERED: FUROSEMIDE 100 MG/10 ML VIAL IV ONE (00:22)
[2021-05-22] MEDS ORDERED: SODIUM BICARB 325 MG TAB PO ONE (00:37)
[2021-05-22] MEDS: HYDRALAZINE HCL 25 MG TABLET PO SCH ×2 (01:00→09:00)
[2021-05-22 06:22] LABS: Potassium 5.1 mmol/L (3.5-5.1)
[2021-05-22 06:33] VITALS: BP 152/94; TEMP 98
[2021-05-22] MEDS: INSULIN -REGULAR HUMAN 50 UNIT/0.5 ML ML SQ SCH (07:30)
[2021-05-22] MEDS ORDERED: SEVELAMER CARBONATE 800 MG TABLET PO SCH (08:00)
--- NOTE | 2021-05-22 08:04 | P.DS ---
Admission Date: 05/21/21 Discharge Date: 05/22/21 Primary Care Provider: Dr. Andrew, Nephrology-Dr. Ellison Disposition: ROUTINE DISCHARGE Discharge Condition: GOOD Reason for Admission: missed dialysis Consultations: Nephrology-Dr. Ellison Procedures: COVID: Positive Medical problem list: End-stage renal disease on hemodialysis with noncompliance with noted hyperkalemia Hypertension Anemia of chronic disease Chronic diastolic CHF Chronic pain Brief History of Present Illness: 60-year-old male with history of end-stage renal disease on hemodialysis, CHF, anemia of chronic disease and hypertension. Patient reported pain and shortness of breath. Patient had missed dialysis this past week. He presented to the ER. Patient with hyperkalemia. Patient was treated in the emergency room. Patient admitted for treatment for dialysis. Patient was positive for Covid. Patient appears to be asymptomatic. Hospital Course: Patient admitted due to end-stage renal disease on hemodialysis with noncompliance. Patient was found to be hyperkalemic. Patient was given treatment for hyperkalemia. Potassium level improved with medication. Patient received dialysis. This was delayed due to lack of services. Patient received dialysis prior to discharge. Patient will continue with dialysis every Monday, and Monday. Compliance with dialysis addressed in detail with patient. Patient will follow up with nephrology as directed. Patient was positive for Covid. Room air saturations within normal range. Patient appears to be asymptomatic at this time. At discharge will recommend prednisone 20 mg 1 pill daily for 7 days. Will also recommend to continue with vitamin supplementation at discharge including thiamine 100 mg daily, zinc 220 mg daily, vitamin C 500 mg 3 times a day and vitamin D 2000 units daily. Patient will continue with Covid 19 instructions including handwashing, facemask use, social distancing. Patient with hypertension. At discharge patient will continue with his current medications. Recommend to maintain blood pressure less than 130/80. Further adjustment can be done by his PCP or nephrology. Patient with anemia chronic disease. At discharge this can be monitored as an outpatient. Patient with chronic diastolic CHF. Patient will continue with the 1500 cc/day fluid restriction. Patient will continue with his current medications. Recommend to monitor his weight daily. If his weight increases by more than 5 pounds he is to contact his PCP for further recommendation. Patient with chronic pain. Patient will continue with his current medications at home. Patient may benefit with chronic pain management referral to further evaluate. Vital Signs/Physical Exam: Temp Pulse Resp BP Pulse Ox 98 F 68 19 152/94 H 98 05/22/21 04:00 05/22/21 04:00 05/22/21 04:00 05/22/21 04:00 05/22/21 04:00 General: Alert, In no apparent distress, Oriented x3, Cooperative HEENT: Atraumatic Neck: Supple Respiratory: Clear to auscultation bilaterally, Normal air movement Cardiovascular: Normal pulses, Regular rate/rhythm Gastrointestinal: Normal bowel sounds, No tenderness, No masses, No rebound, No guarding Musculoskeletal: No erythema, No tenderness, No warmth Integumentary: No tenderness/swelling Neurological: Normal speech, Normal strength at 5/5 x4 extr, Normal tone, Normal affect Laboratory Data at Discharge: WBC 4.00 K/uL (4.3-10.9) L 05/21/21 09:07 Hgb 10.3 g/dL (13.6-17.9) L 05/21/21 09:07 Hct 30.9 % (39.6-49.0) L 05/21/21 09:07 Plt Count 139 K/uL (152-406) L 05/21/21 09:07 PT 10.8 SECONDS (9.5-12.5) 05/20/21 23:50 INR 0.94 05/20/21 23:50 Sodium 135 mmol/L (136-145) L 05/22/21 04:46 Potassium 5.1 mmol/L (3.5-5.1) 05/22/21 04:46 BUN 87 mg/dL (7-18) H 05/22/21 04:46 Creatinine 15.80 mg/dL (0.55-1.3) H* D 05/22/21 04:46 Glucose 62 mg/dL (74-106) L 05/22/21 04:46 Phosphorus 9.4 mg/dL (2.5-4.9) H* 05/21/21 09:07 Magnesium 2.7 mg/dL (1.8-2.4) H 05/21/21 09:07 Total Bilirubin 0.4 mg/dL (0.2-1.0) 05/21/21 09:07 AST 14 U/L (15-37) L 05/21/21 09:07 ALT 19 U/L (12-78) 05/21/21 09:07 Alkaline Phosphatase 125 U/L (45-117) H 05/21/21 09:07 Home Medications: Amlodipine Besylate/Benazepril [Amlodipine-Benazepril 10-20 mg] 1 tab PO TID 11/27/20 Calcium Acetate [Phoslo] 2 cap PO BID 11/27/20 Calcium Acetate [Phoslo] 6 cap PO TIDWM 11/27/20 Codeine/APAP [Tylenol #3*] 1 tab PO QID PRN 11/27/20 Ferric Citrate [Auryxia] 1 tab PO BID 11/27/20 Folic Acid/Vit B Complex and C [Fauzia-Conor Tablet] 1 tab PO DAILY 11/27/20 Furosemide [Lasix] 80 mg PO BID 11/27/20 Tamsulosin [Flomax*] 1 cap PO BEDTIME 11/27/20 diazePAM [Diazepam] 10 mg PO BID PRN 11/27/20 Hydralazine HCl 100 mg PO Q8H 30 Days #90 tablet 11/30/20 carvediloL [Coreg*] 25 mg PO BID 30 Days #60 tab 11/30/20 Ascorbic Acid [Vitamin C*] 500 mg PO TID #90 tablet 05/21/21 Thiamine HCl [Vitamin B-1*] 100 mg PO DAILY #30 tablet 05/21/21 Zinc Sulfate [Zinc Sulfate*] 220 mg PO DAILY #30 cap 05/21/21 predniSONE [Prednisone*] 20 mg PO DAILY #7 tab 05/21/21 New Medications: predniSONE [Prednisone*] 20 mg PO DAILY #7 tab Thiamine HCl [Vitamin B-1*] 100 mg PO DAILY #30 tablet Ascorbic Acid [Vitamin C*] 500 mg PO TID #90 tablet Zinc Sulfate [Zinc Sulfate*] 220 mg PO DAILY #30 cap Physician Discharge Instructions: Patient admitted due to end-stage renal disease on hemodialysis with noncompliance. Patient was found to be hyperkalemic. Patient was given treatment for hyperkalemia. Potassium level improved with medication. Patient received dialysis. This was delayed due to lack of services. Patient received dialysis prior to discharge. Patient will continue with dialysis every Monday, and Saturday. Compliance with dialysis addressed in detail with patient. Patient will follow up with nephrology as directed. Patient was positive for Covid. Room air saturations within normal range. Patient appears to be asymptomatic at this time. At discharge will recommend prednisone 20 mg 1 pill daily for 7 days. Will also recommend to continue with vitamin supplementation at discharge including thiamine 100 mg daily, zinc 220 mg daily, vitamin C 500 mg 3 times a day and vitamin D 2000 units daily. Patient will continue with Covid 19 instructions including handwashing, facemask use, social distancing. Patient with hypertension. At discharge patient will continue with his current medications. Recommend to maintain blood pressure less than 130/80. Further adjustment can be done by his PCP or nephrology. Patient with anemia chronic disease. At discharge this can be monitored as an outpatient. Patient with chronic diastolic CHF. Patient will continue with the 1500 cc/day fluid restriction. Patient will continue with his current medications. Recommend to monitor his weight daily. If his weight increases by more than 5 pounds he is to contact his PCP for further recommendation. Patient with chronic pain. Patient will continue with his current medications at home. Patient may benefit with chronic pain management referral to further evaluate. Diet: Renal Activity: Ad adina Followup: Toya Andrew DO, DO [Primary Care Provider] - Time spent managing pt's care (in minutes): 55
[2021-05-22] MEDS ORDERED: ASCORBIC ACID 500 MG TABLET ONE (08:16)
[2021-05-22] MEDS ORDERED: carvediloL 6.25 MG TAB ONE (08:16)
[2021-05-22] MEDS ORDERED: ZINC SULFATE 220 MG CAP ONE (08:17)
[2021-05-22] MEDS ORDERED: VITAMIN D 1000 UNIT TAB ONE (08:17)
[2021-05-22] MEDS ORDERED: HYDRALAZINE HCL 25 MG TABLET ONE (08:17)
[2021-05-22] MEDS ORDERED: FUROSEMIDE 40 MG/4 ML VIAL ONE (08:17)
[2021-05-22] MEDS ORDERED: THIAMINE HCL 100 MG TABLET ONE (08:17)
[2021-05-22] MEDS: CODEINE 30MG/APAP 300MG TAB PO PRN (08:45)
[2021-05-22] MEDS ORDERED: NEPRO SHAKE 237 ML CAN PO SCH (09:00)
[2021-05-22] MEDS: carvediloL 25 MG TAB PO SCH (09:00)
[2021-05-22] MEDS: FUROSEMIDE 40 MG/4 ML VIAL IV SCH (09:00)
[2021-05-22] MEDS ORDERED: CODEINE 30MG/APAP 300MG TAB ONE (09:06)
[2021-05-22 09:43] LABS: Absolute Lymphocytes (CBC) 0.7 K/uL (0.7-4.9); Basophils % 0.6 % (0-1.3); Hematocrit 27.5 % (39.6-49.0); Lymphocytes % 16.7 % (15.3-44.8); MPV 7.9 fL (7.6-11.3); RBC Red Blood Cell Count 3.16 M/uL (4.33-5.43)
[2021-05-22 10:38] LABS: Albumin 3.2 g/dL (3.4-5.0); Bilirubin Total 0.3 mg/dL (0.2-1.0); Magnesium 2.6 mg/dL (1.8-2.4); Potassium 4.8 mmol/L (3.5-5.1)
[2021-05-22 10:42] LABS: Phosphorus 10.6 mg/dL (2.5-4.9)
[2021-05-22 11:33] VITALS: O2SAT 93
[2021-05-22] MEDS ORDERED: ACETAMINOPHEN 500 MG TAB ONE (13:22)
--- NOTE | 2021-05-22 22:03 | PN ---
Date of Progress Note: 05/22/2021 Chief Complaint: End-stage renal disease, on dialysis; hyperkalemia, metabolic acidosis, and fluid o verload, COVID pneumonia, congestive heart failure. History Of Present Illness: The patient has history of congestive heart failure, diabetic kidney dis ease dialysis dependent. He has been dialyzed 3 times per week. He came to emergency room where he was found to have positive test for COVID and chest x-ray showed some congestive heart failure patter n. The patient is undergoing dialysis today. He was treated for hyperkalemia with Kayexalate, recei malissa IV sodium bicarbonate and bicarbonate by mouth to treat metabolic acidosis of mild degree, bicarb tereza was 19, potassium was ranging up to 5.4. The patient remained hemodynamically stable. He is t olerating dialysis. Review of Systems: Denies fever, chills. Physical Examination: Lungs: Clear to auscultation bilaterally. Heart: S1, S2. Abdomen: Soft, benign. Extremities: Slight edema. Impression And Plan: 1.End-stage renal disease with mild fluid overload. Continue dialysis and ultrafiltration will be d one to control congestive heart failure. Continue p.o. fluid restriction, low-sodium diet. 2.Renal osteodystrophy. Continue low-phosphorus diet and binders. 3.Hyperphosphatemia. The patient was instructed about diet limitation with low phosphorus diet and binders. 4.Diabetes mellitus. Continue insulin. Monitor blood glucose. 5.COVID pneumonia per primary team. NADEEN/ERICL Voice ID: [id number] Report ID: [id number]
[2021-05-24] MEDS ORDERED: HEPARIN 5000 UNIT/ML 1 ML VIAL ONE (10:41)
[2021-05-25 18:20] LABS: HBsAG Nonreactive (Nonreactive)
== END 2021-05-22 14:20 | disposition home or self-care (01) | DRG 291 ==
LOC: ER 19:34 → ERHOLD 05-21 03:35 → 2ND 05-21 04:21 → ERHOLD 05-21 05:51
PROVIDERS: ADMIT Internal Medicine; ATTEND Family Medicine
PROC: 5A1D70Z Performance of Urinary Filtration, Intermittent, Less than 6 Hours Per Day (ICD-10-PCS; principal; 2021-05-22)
DX: I13.2 Hypertensive heart and chronic kidney disease with heart failure and with stage 5 chronic kidney disease, or end stage renal disease (principal); N18.6 End stage renal disease; U07.1 COVID-19; I50.32 Chronic diastolic (congestive) heart failure; E87.2 Acidosis; E11.22 Type 2 diabetes mellitus with diabetic chronic kidney disease; E87.5 Hyperkalemia; E83.39 Other disorders of phosphorus metabolism; D63.8 Anemia in other chronic diseases classified elsewhere; Z99.2 Dependence on renal dialysis; Z91.15 Patient's noncompliance with renal dialysis; G89.29 Other chronic pain
CPT/HCPCS: 0240U; 36415; 71045; 80048; 80053; 80076; 82728; 82947; 83690; 83735; 83880; 84100; 84132; 84484; 85025; 85610; 86140; 86704; 86706; 86803; 87340; 90935; 93005; 94760; 96372; 96374; 99284; J1644; J1940; J2270; J2405; U0003

== ENCOUNTER 2021-07-01 11:13 | Emergency (ER) | payer OTHER ==
[2021-07-01 12:10] LABS: Basophils % 0.8 % (0-1.3); Hematocrit 23.4 % (39.6-49.0); Lymphocytes % 17.2 % (15.3-44.8); RBC Red Blood Cell Count 2.68 M/uL (4.33-5.43)
[2021-07-01 13:22] LABS: SARS-COV-2 RT PCR NEGATIVE (NEGATIVE)
--- NOTE | 2021-07-01 13:30 | RAD REPORT ---
EXAM DESCRIPTION: RAD - Chest Single View - 07/01/2021 1:01 pm CLINICAL HISTORY: DYSPNEA Chest pain. COMPARISON: Chest Single View dated 05/20/2021; Chest Single View dated 05/18/2021; Chest Single View dated 01/01/2021; Chest Single View dated 11/26/2020 FINDINGS: Portable technique limits examination quality. Mild interstitial pulmonary edema suspected. The heart is moderately enlarged in size. Left-sided na ous catheter tip in the SVC. IMPRESSION: CHF versus volume overload pattern.
--- NOTE | 2021-07-01 13:49 | EDPHYS ---
Physician Documentation [facility] Name: Alex Cagle Age: 60 yrs Sex: Male : 1960 Arrival Date: 07/01/2021 Time: 11:15 Bed 23 Private MD: Toya Andrew H ED Physician Clayton Begum HPI: 07/01 13:50 This 60 yrs old Male presents to ER via Ambulatory with complaints of fluid kb overload. 13:50 The patient or guardian reports flu symptoms, myalgias. Onset: The symptoms/episode kb began/occurred yesterday. Severity of symptoms: At their worst the symptoms were moderate, in the emergency department the symptoms are unchanged. Modifying factors: The symptoms are alleviated by nothing, the symptoms are aggravated by nothing. Associated signs and symptoms: The patient has no apparent associated signs or symptoms. The patient has not experienced similar symptoms in the past. The patient has not recently seen a physician. Pt states "I don't feel good. I feel like I have the flu or something. I also feel like I have fluid overload because I missed dialysis yesterday." . Historical: - Allergies: 11:28 NKA; jd3 - Home Meds: 11:28 acetaminophen-codeine 300-30 mg Oral tab every 6 hours [Active]; amlodipine-benazepril jd3 10-20 mg Oral cap three times a day [Active]; furosemide 80 mg Oral tab 1 tab 3 times per day [Active]; carvedilol 6.25 mg Oral tab 2 times per day [Active]; hydralazine 50 mg Oral tab three times a day [Active]; hydroxyzine HCl 25 mg Oral tab 3 times per day [Active]; Fauzia-Conor 0.8 mg Oral tab daily [Active]; tamsulosin 0.4 mg Oral cp24 1 cap once daily [Active]; - PMHx: 11:28 Diabetes - NIDDM; CHF; ESRD; Hypertension; insomnia; jd3 - Immunization history:: Adult Immunizations up to date, Client reports receiving the 2nd dose of the Covid vaccine, Date received: 2020. - Social history:: Smoking status: Patient denies any tobacco usage or history of. ROS: 13:49 Cardiovascular: Negative for chest pain, palpitations, and edema. kb 13:49 Constitutional: Positive for fatigue, malaise. 13:49 Respiratory: Positive for dyspnea on exertion, Negative for cough, hemoptysis, orthopnea, pleurisy, shortness of breath, sputum production, wheezing. 13:49 All other systems are negative. Exam: 13:49 Constitutional: This is a well developed, well nourished patient who is awake, alert, kb and in no acute distress. Head/Face: Normocephalic, atraumatic. ENT: Moist Mucous membranes Cardiovascular: Regular rate and rhythm with a normal S1 and S2. No gallops, murmurs, or rubs. No pulse deficits. Respiratory: Respirations even and unlabored. No increased work of breathing, no retractions or nasal flaring. Abdomen/GI: Soft, non-tender. No distention Skin: Warm, dry with normal turgor. Normal color. MS/ Extremity: Pulses equal, no cyanosis. Neurovascular intact. Full, normal range of motion. Neuro: Awake and alert, GCS 15, oriented to person, place, time, and situation. Moves all extremities. Normal gait. Psych: Awake, alert, with orientation to person, place and time. Behavior, mood, and affect are within normal limits. Vital Signs: 11:29 BP 184 / 90; Pulse 70; Resp 18 S; Temp 97.9(TE); Pulse Ox 99% on R/A; Weight 86.18 kg jd3 (R); Height 5 ft. 7 in. (170.18 cm) (R); Pain 8/10; 12:39 BP 187 / 98; Pulse 72; Resp 20; Pulse Ox 98% on R/A; oh 14:01 BP 179 / 91; Pulse 73; Resp 19; Pulse Ox 98% on R/A; oh 11:29 Body Mass Index 29.76 (86.18 kg, 170.18 cm) jd3 MDM: 11:33 Patient medically screened. kb 13:48 Data reviewed: vital signs, nurses notes. Data interpreted: Pulse oximetry: on room air kb is 98 %. Interpretation: normal. Counseling: I had a detailed discussion with the patient and/or guardian regarding: the historical points, exam findings, and any diagnostic results supporting the discharge/admit diagnosis, lab results, radiology results, the need for outpatient follow up, a family practitioner, to return to the emergency department if symptoms worsen or persist or if there are any questions or concerns that arise at home. 07/01 11:43 Order name: CBC with Diff; Complete Time: 12:31 kb 07/01 11:43 Order name: Basic Metabolic Panel; Complete Time: 12:38 kb 07/01 12:04 Order name: Glucose, Ancillary Testing; Complete Time: 12:07 EDMS 07/01 13:22 Order name: COVID-19/FLU A+B; Complete Time: 13:23 EDMS 07/01 11:42 Order name: Blood Glucose Level; Complete Time: 12:06 kb 07/01 11:43 Order name: Chest Single View XRAY; Complete Time: 13:33 kb Administered Medications: No medications were administered Disposition: 17:06 Co-signature as Attending Physician, Clayton Begum MD I agree with the assessment and kdr plan of care. Disposition Summary: 07/01/21 13:48 Discharge Ordered Location: Home kb Condition: Stable kb Diagnosis - Acute pulmonary edema kb - Other malaise and fatigue kb Followup: kb - With: Emergency Department - When: As needed - Reason: Worsening of condition Followup: kb - With: Private Physician - When: 2 - 3 days - Reason: Recheck today's complaints, Continuance of care, Re-evaluation by your physician Discharge Instructions: - Discharge Summary Sheet kb - Pulmonary Edema, [id number] kb Forms: - Medication Reconciliation Form kb - Thank You Letter kb - Antibiotic Education kb - Prescription Opioid Use kb Signatures: Dispatcher [employer] EDMD Kailee Olsen, PRESS OPERATOR HEAVY DUTY-C PRESS OPERATOR HEAVY DUTY-Viniciob Clayton Begum MD MD kdr Davies, Jonathon RN RN jd3 Corrections: (The following items were deleted from the chart) 12:32 11:43 Influenza Screen (A \\T\\ B)+BA.LAB.BRZ ordered. EDMS EDMS 12:34 11:43 CORONAVIRUS+MR.LAB.BRZ ordered. EDMS EDMS
--- NOTE | 2021-07-01 13:49 | ER ---
Nurse's Notes [facility] Name: Alex Cagle Age: 60 yrs Sex: Male : 1960 Arrival Date: 07/01/2021 Time: 11:15 Bed 23 Private MD: Toya Andrew H Diagnosis: Acute pulmonary edema;Other malaise and fatigue Presentation: 07/01 11:26 Chief complaint: Patient states: "I think I am in fluid overload. I had to miss jd3 dialysis yesterday because of moving, but I feel just full in my chest and just bad.". Coronavirus screen: At this time, the client does not indicate any symptoms associated with coronavirus-19. Ebola Screen: Patient negative for fever greater than or equal to 101.5 degrees Fahrenheit, and additional compatible Ebola Virus Disease symptoms. Initial Sepsis Screen: Does the patient meet any 2 criteria? No. Patient's initial sepsis screen is negative. Does the patient have a suspected source of infection? No. Patient's initial sepsis screen is negative. Risk Assessment: Do you want to hurt yourself or someone else? Patient reports no desire to harm self or others. Onset of symptoms was June 29, 2021. 11:26 Method Of Arrival: Ambulatory jd3 11:26 Acuity: DEJAN 3 jd3 Historical: - Allergies: 11:28 NKA; jd3 - Home Meds: 11:28 acetaminophen-codeine 300-30 mg Oral tab every 6 hours [Active]; amlodipine-benazepril jd3 10-20 mg Oral cap three times a day [Active]; furosemide 80 mg Oral tab 1 tab 3 times per day [Active]; carvedilol 6.25 mg Oral tab 2 times per day [Active]; hydralazine 50 mg Oral tab three times a day [Active]; hydroxyzine HCl 25 mg Oral tab 3 times per day [Active]; Fauzia-Conor 0.8 mg Oral tab daily [Active]; tamsulosin 0.4 mg Oral cp24 1 cap once daily [Active]; - PMHx: 11:28 Diabetes - NIDDM; CHF; ESRD; Hypertension; insomnia; jd3 - Immunization history:: Adult Immunizations up to date, Client reports receiving the 2nd dose of the Covid vaccine, Date received: 2020. - Social history:: Smoking status: Patient denies any tobacco usage or history of. Screenin:36 Abuse screen: Denies threats or abuse. Nutritional screening: No deficits noted. oh Tuberculosis screening: No symptoms or risk factors identified. Fall Risk None identified. Assessment: 12:34 General: Appears comfortable, Behavior is calm, cooperative, Reports feeling ill for oh fatigue for weakness and fatigue thinks he may have the flu. Pain: Denies pain. Neuro: No deficits noted. Cardiovascular: No deficits noted. Respiratory: No deficits noted. GI: No deficits noted. : No deficits noted. EENT: No deficits noted. Musculoskeletal: Reports weakness in body. Vital Signs: 11:29 BP 184 / 90; Pulse 70; Resp 18 S; Temp 97.9(TE); Pulse Ox 99% on R/A; Weight 86.18 kg jd3 (R); Height 5 ft. 7 in. (170.18 cm) (R); Pain 8/10; 12:39 BP 187 / 98; Pulse 72; Resp 20; Pulse Ox 98% on R/A; oh 14:01 BP 179 / 91; Pulse 73; Resp 19; Pulse Ox 98% on R/A; oh 11:29 Body Mass Index 29.76 (86.18 kg, 170.18 cm) jd3 ED Course: 11:15 Patient arrived in ED. as 11:15 Toya Andrew DO is Private Physician. as 11:27 Triage completed. jd3 11:29 Arm band placed on. jd3 11:32 Kailee Olsen FNP-C [facility]. kb 11:33 Clayton Begum MD is Attending Physician. kb 11:37 Luzma Mendoza, KATIANA is Primary Nurse. oh 12:06 Basic Metabolic Panel Sent. oh 12:06 CBC with Diff Sent. oh 12:36 Placed in gown. Bed in low position. Call light in reach. Side rails up X 1. oh 13:01 Chest Single View XRAY In Process Unspecified. EDMS 14:01 No provider procedures requiring assistance completed. oh 14:01 Patient did not have IV access during this emergency room visit. oh Administered Medications: No medications were administered Outcome: 13:48 Discharge ordered by . kb 14:01 Discharged to home oh 14:01 Condition: good 14:01 Discharge instructions given to patient. 14:03 Patient left the ED. oh Signatures: Dispatcher [employer] EDMS Kailee Olsen, UNIONMELT OPERATOR-Gi UNIONMELT OPERATOR-Sheron Maynard Jonathon, RN RN Luzma De Leon RN RN oh Corrections: (The following items were deleted from the chart) 12:32 12:06 Influenza Screen (A \\T\\ B)+BA.LAB.BRZ drawn and sent. oh EDMS 12:34 12:06 CORONAVIRUS+MR.LAB.BRZ drawn and sent. oh EDMS
[2021-07-01 14:25] VITALS: TEMP 97.9
[2021-07-01 14:27] VITALS: O2SAT 98
[2021-07-01 14:28] VITALS: BP 179/91
== END 2021-07-01 14:03 | disposition home or self-care (01) ==
LOC: ER 11:13
DX: J81.0 Acute pulmonary edema (principal); R53.83 Other fatigue; Z20.822 Contact with and (suspected) exposure to COVID-19; E11.22 Type 2 diabetes mellitus with diabetic chronic kidney disease; I13.2 Hypertensive heart and chronic kidney disease with heart failure and with stage 5 chronic kidney disease, or end stage renal disease; I50.9 Heart failure, unspecified; N18.6 End stage renal disease; Z99.2 Dependence on renal dialysis
CPT/HCPCS: 85025; 80048; 36415; 82947; 0240U; 71045; 99283

== ENCOUNTER 2021-08-25 21:05 | Emergency (ER) | payer OTHER ==
--- OUTSIDE RECORDS SUMMARY | 2021-08-25 22:00 | XMS REPORT | Continuity of Care Document ---
:1960 Author Organization [facility] t Address [address] [place] [address] Care Team Providers Name Role Phone FLORES Primary Care Physician Unavailable KOLE Attending Clinician Unavailable DESIRAE Attending Clinician Unavailable Esdras CRUZ, Forrest Attending Clinician Forrest OLSEN Attending Clinician Unavailable [facility] Attending Clinician Unavailable Desirae CRUZ Attending Clinician Quita Shaw MD Attending Clinician CORBY YORK Attending Clinician Unavailable Norma SAAB, A Attending Clinician Unavailable Bridget Tanner Attending Clinician Heriberto CRUZ Attending Clinician Sara Ramsey MD Attending Clinician Kole CRUZ Attending Clinician Corby York MD Attending Clinician Serg Skinner Attending Clinician Serg DUVALL Attending Clinician Unavailable Doctor Unassigned, Name Attending Clinician Unavailable SHAKIR CLEANING Attending Clinician Unavailable Black CRUZ, Shakir Attending Clinician Mina CRUZ, Deepthi Keita Attending Clinician [phone] Chente CRUZ Attending Clinician Only, Test Attending Clinician Unavailable Robyn AMARAL Attending Clinician CHENTE Attending Clinician Unavailable KOLE Admitting Clinician Unavailable DESIRAE Admitting Clinician Unavailable Sara Ramsey MD Admitting Clinician SHAKIR CLEANING Admitting Clinician Unavailable Shakir Cleaning MD Admitting Clinician Desirae CRUZ Admitting Clinician Payers Payer Name Policy Type Policy Number Effective Date Expiration Date S quan MEDICARE PART A \\T\\ [id number] 2018 B 00:00:00 COMMERCIAL [id number] 2018 NON-CONTRACT 00:00:00 GENERIC Problems Condition Condition Condition Status Onset Resolution Last Treating Co mments Source Name Details Category Date Date Treatment Clinician Date ESRD Diagnosis Active 2019-102020-08-12 Mem oria NEEDING 0 08:39:00 l DIALYSIS, ESRD 00:00: [place] VOLUME NEEDING 00 OVERLOAD DIALYSIS, VOLUME OVERLOAD Active 08/06/2020 [facility] [address] [address] SENT - Diagnosis Active 2019-102020-08-06 Memoria FLUID 0- 16:50:[address] SENT 00:00: [place] nn - FLUID 00 OVERLOAD Active 08/06/2020 [facility] [place] DIALYSIS Diagnosis Active 2019[facility]102020[facility]07[facility]24 [facility] 08[facility]37:00 l DIALYSIS 00:00: [place] n ISSUE 00 Active 07/24/2020 [facility] [place] PERITONITI Diagnosis Active 2020-07-09 Memoria S, 07-06 16:32:00 l DIABETES, 00:00: [place] ESRD ON PERITONITI 00 DIALYSIS S, DIABETES, ESRD ON DIALYSIS Active 07/06/2020 [facility] [place] ABD PAIN Diagnosis Active 2020-07-06 emoria 07-06 07:06:00 l ABD PAIN 00:00: [place] n 00 Active 07/06/2020 [facility] Dyspnea on Dyspnea on Disease Active U nivers exertion exertion 9-13 ity of 00:00: [place] [facility] Dyspnea Dyspnea Disease Active 2019- Univers 9-13 ity of 00:00: [place] 00 [facility] WEAKNESS Diagnosis Active 2020-08-04 M emoria AND 05-21 11:45:00 l SWELLING WEAKNESS 00:00: Herm dionne AND 00 SWELLING Active 05/21/2020 [facility] [place] Colon Colon Disease Active Overview: Univer s cancer cancer 805 Formattin ity of screening screening 00:00: [place] of this [place] 00 note Medical might be Branch different from the original. Added automatic ally from request for surgery [id number] ESRD (end ESRD (end Disease Active Uni vers stage stage 6-18 ity of renal renal 00:00: [place] disease) disease) 00 Medica l Branch GIB GIB Disease Active Univers (gastroint (gastroint 6-15 it y of estinal estinal 00:00: [place] bleeding) bleeding) 00 Medi sony Branch Gastrointe Gastrointe Disease Active Overview : Univers stinal stinal 6-15 Formattin ity of hemorrhage hemorrhage 00:00: g of this [place] with with 00 note Medical melena melena might be Branch different from the original. Added automatic ally from request for surgery [id number] NAUSEA/VOM Diagnosis Active 2020-03-23 Memoria ITING 6-15 01:05:00 l 00:00: [place] NAUSEA/VOM 00 ITING Active 03/23/2020 [facility] [place] Obesity Obesity Disease Active Univers (BMI (BMI 5-27 ity of 30-39.9) 30-39.9) 00:00: [place] 00 Medical Branch FEVER Diagnosis Active 2020-02-26 Mem oria 4-27 11:06:00 l FEVER 00:00: [place] 00 Active 02/03/2020 [facility] [place] Gallbladde Gallbladde Disease Active Overview : Univers r polyp r polyp 2-06 Formattin ity o f 00:00: g of this [place] 00 note Medical might be Branch different from the original. Added automatic ally from request for surgery [id number] AMS, Diagnosis Active 2019-10-31 Mem oria HYPONATREM 10-28 11:04:00 l IA AMS, 00:00: [place] HYPONATREM 00 IA Active 0 [facility] [place] NUMBNESS Diagnosis Active 2019-10-28 M emoria 10-28 20:30:00 l NUMBNESS 00:00: [place] n 00 Active 10/28/2019 [facility] [place] AMS Diagnosis Active 2018-102019-09-23 Mem oria 1-06 21:56:00 l AMS 10:52: [place] 00 Active 08/14/2019 [facility] [place] PNA Diagnosis Active 2019-04-05 Mem oria 04-05 20:15:00 l PNA 00:00: [place] 00 Active 04/05/2019 [facility] [place] DIZZINES, Diagnosis Active 2019-04-15 Memoria PNEUMONIA, 04-05 21:55:00 l END STAGE 00:00: [place] RENAL DIS DIZZINES, 00 PNEUMONIA, END STAGE RENAL DIS Active 04/05/2019 [facility] ESR[facility] Diagnosis Active 2017-102018-12-14 Mem oria NEEDING 0- 09:50:00 l DIALYSIS, ESRD 00:00: [place] ACUTE NEEDING 00 PULMONARY DIALYSIS, E ACUTE PULMONARY E Active 07/21/[address] Diagnosis Active 2017-102018-07-21 Mem oria REFERRAL 0-13 21:30:00 l 00:00: [place] REFERRAL 00 Active 07/21/2018 [facility] [place] BUSCH Diagnosis Active 2017-102018-07-20 Mem oria REFFERAL 0-12 20:08:00 l 00:00: [place] REFFERAL 00 Active 07/20/2018 [facility] [place] RENAL/DO Diagnosis Active 2018-07-31 M emoria NOT USE 05-23 12:39:00 l FOR RENAL/DO 06:00: [place] n CHARGES NOT USE 00 F/C NOTES FOR O CHARGES F/C NOTES O Active 05/23/2018 [facility] NEW Diagnosis Active 2018-05-23 Mem oria EVALUATION 05-09 10:28:00 l NEW 00:00: [place] EVALUATION 00 Active 05/09/2018 [facility] HYPERTENSI Diagnosis Active 2018-04-16 Memoria VE 04-14 13:14:00 l URGENCY, 08:00: [place] CHEST PAIN HYPERTENSI 00 VE URGENCY, CHEST PAIN Active 04/14/2018 [facility] CHEST PAIN Diagnosis Active 2018-04-15 Memoria 04-14 01:42:00 l CHEST 08:00: [place] PAIN 00 Active 04/14/2018 [facility] ACUTE Diagnosis Active 2018-03-19 Mem oria DYSPNEA 03-16 13:39:00 l ACUTE 00:00: [place] DYSPNEA 00 Active 03/16/2018 [facility] [place] WEAKNESS Diagnosis Active 2018-03-17 M emoria 03-16 05:41:00 l WEAKNESS 00:00: [place] n 00 Active 03/16/2018 [facility] [place] ESRD (end ESRD (end Disease Active Uni vers stage stage 4-28 ity of renal renal 00:00: [place] disease) disease) 00 Medica l on on Branch dialysis dialysis IN NEED OF Diagnosis Active 2018-01-22 Memoria DIALYSIS 16 18:51:00 l IN NEED 00:00: [place] OF 00 DIALYSIS Active 01/22/2018 [facility] [place] SOB Diagnosis Active 2017-12-15 Mem oria 12-15 07:37:00 l SOB 00:00: [place] 00 Active 12/15/2017 [facility] [place] ACUTE Diagnosis Active 2017-12-15 [facility] oria RENAL 12-15 10:05:00 l FAILURE, ACUTE 00:00: [place] FLUID RENAL 00 OVERLOAD, FAILURE, CHF FLUID OVERLOAD, CHF Active 12/15/2017 [facility] DM DM Disease Active Univers (diabetes (diabetes ity of mellitus) mellitus) [facility] HTN HTN Disease Active Univers (hypertens (hypertens it y of ion) ion) [facility] DIZZINESS Diagnosis Active 2019-04-15 Memoria AND 21:55:00 l GIDDINESS [place] DIZZINESS AND GIDDINESS Active [facility] DYSPNEA, Diagnosis Active 2018-03-19 M emoria UNSPECIFIE 13:39:00 l D DYSPNEA, [place] UNSPECIFIE D Active [facility] ACUTE Diagnosis Active 2017-12-15 Mem oria KIDNEY 10:05:00 l FAILURE, ACUTE [place] UNSPECIFIE KIDNEY D FAILURE, UNSPECIFIE D Active [facility] HEART Diagnosis Active 2017-12-15 Mem oria FAILURE, 10:05:00 l UNSPECIFIE HEART [place] nn D FAILURE, UNSPECIFIE D Active [facility] ACUTE Diagnosis Active 2018-12-14 Mem oria PULMONARY 09:50:00 l EDEMA ACUTE [place] PULMONARY EDEMA Active [facility] End stage Problem 2020-08-14 Nv moria renal 23:33:32 l disease End [place] stage renal disease 08/14/2020 [facility] Type 2 Problem 2019-02-10 Memor ia diabetes 12:48:45 l mellitus Type 2 [place] n with diabetes diabetic mellitus chronic with kidney diabetic disease chronic kidney disease 02/10/2019 [facility] Hypertensi Problem 2019-02-10 M emoria ve chronic 12:48:45 l kidney [place] disease Hypertensi with stage ve chronic 5 chronic kidney kidney disease disease or with stage end stage 5 chronic renal kidney disease disease or end stage renal disease 02/10/2019 [facility] Dependence Problem 2019-02-10 M emoria on renal 12:48:45 l dialysis [place] Dependence on renal dialysis 02/10/2019 [facility] Anxiety Problem 2019-02-06 Kojo lynn disorder, 14:42:13 l unspecifie Anxiety Her meeks d disorder, unspecifie d 02/06/2019 [facility] Sleep Problem 2019-02-10 Memor ia apnea, 12:48:45 l unspecifie Sleep [place] nn d apnea, unspecifie d 02/10/2019 [facility] Other long Problem 2019-02-06 M emoria term 14:42:13 l (current) Other [place] n drug care home therapy (current) drug therapy 02/06/2019 [facility] Pericardia Problem 2019-02-10 M emoria l effusion 12:48:45 l (noninflam [place] n matory) Pericardia l effusion (noninflam matory) 02/10/2019 [facility] Nausea Problem 2019-02-06 Memor ia 14:42:13 l Nausea [place] 02/06/2019 [facility] Other Problem 2019-02-06 Memor ia symptoms 14:42:13 l and signs Other [place] n concerning symptoms food and and signs fluid concerning intake food and fluid intake 02/06/2019 [facility] Pneumonia, Problem 2019-04-10 M emoria unspecifie 22:02:39 l d organism [place] n Pneumonia, unspecifie d organism 04/10/2019 [facility] Altered Problem 2019-11-07 Kojo lynn mental 23:47:53 l status, Altered [place] n unspecifie mental d status, unspecifie d 11/07/2019 [facility] Acute Problem 2019-02-10 Memor ia pulmonary 12:48:45 l edema Acute [place] pulmonary edema 02/10/2019 [facility] Acute Problem 2019-02-10 Memor ia kidney 12:48:45 l failure, Acute [place] unspecifie kidney d failure, unspecifie d 02/10/2019 [facility] Fluid Problem 2019-02-10 Memor ia overload, 12:48:45 l unspecifie Fluid [place] nn d overload, unspecifie d 02/10/2019 [facility] Obesity, Problem 2019-02-10 Mem oria unspecifie 12:48:45 l d Obesity, [place] n unspecifie d 02/10/2019 [facility] Body mass Problem 2019-02-10 Me moria index 12:48:45 l (BMI) Body [place] 33.0-33.9, mass index adult (BMI) 33.0-33.9, adult 02/10/2019 [facility] Chronic Problem 2019-02-10 Kojo lynn obstructiv 12:48:45 l e Chronic [place] pulmonary obstructiv disease, e unspecifie pulmonary d disease, unspecifie d 02/10/2019 [facility] Dyspnea, Problem 2018-03-23 Mem oria unspecifie 01:53:56 l d Dyspnea, [place] n unspecifie d 03/23/2018 [facility] Single Problem 2020-08-10 Memor ia liveborn 09:04:08 l infant, Single [place] delivered liveborn vaginally infant, delivered vaginally 08/10/2020 [facility] Hypocalcem Problem 2018-03-28 M emoria ia 12:58:31 l [place] Hypocalcem ia 03/28/2018 [facility] Other Problem 2018-03-28 Memor ia disorders 12:58:31 l of Other [place] phosphorus disorders metabolism of phosphorus metabolism 03/28/2018 [facility] Hypo-osmol Problem 2018-03-28 M emoria ality and 12:58:31 l hyponatrem [place] n ia Hypo-osmol ality and hyponatrem ia 03/28/2018 [facility] Iron Problem 2018-03-28 Memor ia deficiency 12:58:31 l anemia, Iron [place] unspecifie deficiency d anemia, unspecifie d 03/28/2018 [facility] Secondary Problem 2018-03-28 Me moria hyperparat 12:58:31 l hyroidism [place] of 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 03/28/2018 [facility] Acute Problem 2018-03-28 Memor ia diastolic 12:58:31 l (congestiv Acute [place] nn e) heart diastolic failure (congestiv e) heart failure 03/28/2018 [facility] Anemia in Problem 2018-03-28 Me moria other 12:58:31 l chronic Anemia [place] diseases in other classified chronic elsewhere diseases classified elsewhere 03/28/2018 [facility] Atheroscle Problem 2018-03-28 M emoria rosis of 12:58:31 l renal [place] artery Atheroscle rosis of renal artery 03/28/2018 [facility] Obstructiv Problem 2018-03-28 M emoria e sleep 12:58:31 l apnea [place] (adult) Obstructiv (pediatric e sleep ) apnea (adult) (pediatric ) 03/28/2018 [facility] Anxiety Problem Resolve 2020-08-14 Mem oria (finding) d 23:33:32 l Anxiety [place] (finding) Resolved Problem 08/14/2020 [facility] Sleep Problem Resolve 2020-08-14 Kojo lynn apnea d 23:33:32 l (finding) Sleep [place] n apnea (finding) Resolved Problem 08/14/2020 [facility] Pericardia Problem Active 2020-08-14 M emoria l effusion 23:33:32 l (disorder) [place] Pericardia l effusion (disorder) Active Problem 08/14/2020 [facility] Simple Problem Active 2020-08-14 Memor ia obesity 23:33:32 l (disorder) Simple Herm dionne obesity (disorder) Active Problem 08/14/2020 [facility] ALTERED Diagnosis Active 2019-10-31 Me moria MENTAL 11:04:00 l STATUS, ALTERED [place] n UNSPECIFIE MENTAL D STATUS, UNSPECIFIE D [facility] [place] PERITONITI Diagnosis Active 2020-07-09 Memoria S, 16:32:00 l UNSPECIFIE [place] n D PERITONITI S, UNSPECIFIE D Active [facility] [place] HYPO-OSMOL Diagnosis Active 2019-10-31 Memoria ALITY AND 11:04:00 l HYPONATREM [place] n IA HYPO-OSMOL ALITY AND HYPONATREM IA Active [facility] [place] TYPE 2 Diagnosis Active 2020-07-09 Mem oria DIABETES 16:32:00 l MELLITUS TYPE 2 [place] n WITHOUT DIABETES COMPLIC MELLITUS WITHOUT COMPLIC Active [facility] [place] END STAGE Diagnosis Active 2020-08-12 Memoria RENAL 08:39:00 l DISEASE END [place] STAGE RENAL DISEASE Active [facility] [place] FLUID Diagnosis Active 2020-08-12 Mem oria OVERLOAD, 08:39:00 l UNSPECIFIE FLUID [place] nn D OVERLOAD, UNSPECIFIE D Active [facility] [place] SINGLE Diagnosis Active 2020-08-09 Mem oria LIVEBORN 07:58:00 l INFANT, SINGLE [place] DELIVERED LIVEBORN VAGINA INFANT, DELIVERED VAGINA Active [facility] PNEUMONIA, Diagnosis Active 2019-04-15 Memoria UNSPECIFIE 21:55:00 l D ORGANISM [place] n PNEUMONIA, UNSPECIFIE D ORGANISM Active [facility] [place] History of Past Illness Condition Condition Condition Status Onset Resolution Last Treating Co mments Source Name Details Category Date Date Treatment Clinician Date Localized Problem 2019-2020-07-26 2020-07-26 Memoria edema 0-16 21:30:35 21:30:35 l 17:00: [place] Localized 00 edema 07/24/2020 07/26/2020 [facility] Hypokalemi Problem 2019-102020-07-26 2020-07-26 Memoria a 0-16 21:30:35 21:30:35 l 17:00: [place] Hypokalemi 00 a 07/24/2020 07/26/2020 [facility] Type 2 Problem 2020-07-17 2020-07-17 emoria diabetes 07-06 22:26:03 22:26:03 l mellitus Type 2 17:00: [place] n without diabetes 00 complicati mellitus ons without complicati ons 07/06/2020 07/17/2020 [facility] Anemia, Problem 2020-05-23 2020-05-23 Memoria unspecifie 05-21 21:26:40 21:26:40 l d Anemia, 17:00: [place] unspecifie 00 d 05/21/2020 05/23/2020 [facility] Constipati Problem 2019-2020-05-23 2020-05-23 Memoria on, 05-21 21:26:40 21:26:40 l unspecifie 17:00: [place] n d Constipati 00 on, unspecifie d 05/21/2020 05/23/2020 [facility] Pain in Problem 2020-02-05 2020-02-05 Memoria right hip 02-02 21:56:20 21:56:20 l Pain in 17:00: [place] right hip 00 02/03/2020 02/05/2020 [facility] Fever, Problem 2020-02-05 2020-02-05 M emoria unspecifie 02-02 21:56:20 21:56:20 l d Fever, 17:00: [place] unspecifie 00 d 02/03/2020 02/05/2020 [facility] Unspecifie Problem 2020-02-05 2020-02-05 Memoria d fall, 02-02 21:56:20 21:56:20 l initial 17:00: [place] encounter Unspecifie 00 d fall, initial encounter 02/03/2020 02/05/2020 [facility] Other Problem 2017-102019-02-10 2019-02-10 M emoria specified 12:48:45 12:48:45 l complicati Other 04:09: [place] nn on of specified 04 vascular complicati prosthetic on of devices, vascular implants prosthetic and devices, grafts, implants initial and encounter grafts, initial encounter 07/31/2018 02/10/2019 [facility] Hyperkalem Problem 2017-102019-02-06 2019-02-06 Memoria ia 0-12 14:42:13 14:42:13 l 05:00: [place] Hyperkalem 00 ia 07/20/2018 02/06/2019 [facility] Unspecifie Problem 2017-102019-02-06 2019-02-06 Memoria d 0-12 14:42:13 14:42:13 l complicati 05:00: [place] n on of Unspecifie 00 internal d prosthetic complicati device, on of implant internal and graft, prosthetic initial device, encounter implant and graft, initial encounter 07/20/2018 02/06/2019 [facility] Hypertensi Problem 2018-03-28 2018-03-28 Memoria ve heart 12-28 12:58:31 12:58:31 l disease 03:49: [place] with heart Hypertensi 05 failure ve heart disease with heart failure 12/28/2017 03/28/2018 [facility] Chronic Problem 2018-0 2018-01-25 2018-01-25 Memoria kidney 4-16 04:46:18 04:46:18 l disease, Chronic 05:00: [place] nn unspecifie kidney 00 d disease, unspecifie d 01/22/2018 01/25/2018 [facility] Allergies, Adverse Reactions, Alerts Allergy Allergy Status Severity Reaction(s) Onset Inactive Treating Comm ents Source Name Type Date Date Clinician NO KNOWN Drug Active Univers ALLERGIE Class ity of S [place] [facility] [place] Social History Social Habit Start Date Stop Date Quantity Comments Source Exposure to Unable to assess Univers ity of SARS-CoV-2 [place] [facility] (event) Branch History SDCO 2020-03-23 2020-03-23 5 University o f Financial 00:00:00 00:00:00 [place] [facility] History [facility] Food 2020-03-23 2020-03-23 1 Univers ity of Worry 00:00:00 00:00:00 [place] [facility] History [facility] Food 2020-03-23 2020-03-23 1 Univers ity of Scarcity 00:00:00 00:00:00 [place] [facility] History [facility] 2020-03-23 2020-03-23 2 University o f Transport Med 00:00:00 00:00:00 [place] [facility] History [facility] 2020-03-23 2020-03-23 2 University o f Transport Non-Med 00:00:00 00:00:00 [place] [facility] Tobacco use and 2020-03-04 2020-03-04 Never used Universit y of exposure 00:00:00 00:00:00 [facility] Social History 2017-12-15 2017-12-15 [facility] Tao devante 18:14:42 18:14:42 [birth year] Universit y of 00:00:00 00:00:00 [facility] Smoking Status Start Date Stop Date Source Never smoker [facility] Branch Unknown if ever smoked Universit y of [place] [facility] [place] Medications Ordered Filled Start Stop Current Ordering Indication Dosage Frequency Signature Comments Components Source Medication Medication Date Date Medication? Clinician (SIG) Name Name vitamin b Yes 1{tbl} Take 1 Univ ers complex-vit 7-15 tablet by ity of villatoro 15:42: mouth [place] c-folic 32 daily. Medical acid Branch (FAUZIA-CONOR) 0.8 mg tablet zolpidem 10 Yes 10mg Take 10 mg Univers mg tablet 7-15 by mouth ity of 15:42: at bedtime [place] 32 as needed Medical for Branch Insomnia. diazePAM 0 Yes 10mg Take 10 mg Uni vers (VALIUM) 5 7-15 by mouth 2 ity of mg tablet 15:42: (two) [place] 32 times Medical daily as Branch needed. vitamin b Yes 1{tbl} Take 1 Univ ers complex-vit 7-15 tablet by ity of villatoro 15:42: mouth [place] c-folic 32 daily. Medical acid Branch (FAUZIA-CONOR) 0.8 mg tablet zolpidem 10 Yes 10mg Take 10 mg Univers mg tablet 7-15 by mouth ity of 15:42: at bedtime [place] 32 as needed Medical for Branch Insomnia. diazePAM Yes 10mg Take 10 mg Uni vers (VALIUM) 5 7-15 by mouth 2 ity of mg tablet 15:42: (two) [place] 32 times Medical daily as Branch needed. vitamin b Yes 1{tbl} Take 1 Univ ers complex-vit 7-15 tablet by ity of villatoro 15:42: mouth [place] c-folic 32 daily. Medical acid Branch (FAUZAI-CONOR) 0.8 mg tablet zolpidem 10 Yes 10mg Take 10 mg Univers mg tablet 7-15 by mouth ity of 15:42: at bedtime [place] 32 as needed Medical for Branch Insomnia. diazePAM Yes 10mg Take 10 mg Uni vers (VALIUM) 5 7-15 by mouth 2 ity of mg tablet 15:42: (two) [place] 32 times Medical daily as Branch needed. vitamin b Yes 1{tbl} Take 1 Univ ers complex-vit 7-15 tablet by ity of villatoro 15:42: mouth [place] c-folic 32 daily. Medical acid Branch (FAUZIA-CONOR) 0.8 mg tablet zolpidem 10 Yes 10mg Take 10 mg Univers mg tablet 7-15 by mouth ity of 15:42: at bedtime [place] 32 as needed Medical for Branch Insomnia. diazePAM Yes 10mg Take 10 mg Uni vers (VALIUM) 5 7-15 by mouth 2 ity of mg tablet 15:42: (two) [place] 32 times Medical daily as Branch needed. vitamin b Yes 1{tbl} Take 1 Univ ers complex-vit 7-15 tablet by ity of villatoro 15:42: mouth [place] c-folic 32 daily. Medical acid Branch (FAUZIA-CONOR) 0.8 mg tablet zolpidem 10 Yes 10mg Take 10 mg Univers mg tablet 7-15 by mouth ity of 15:42: at bedtime [place] 32 as needed Medical for Branch Insomnia. diazePAM 0 Yes 10mg Take 10 mg Uni vers (VALIUM) 5 7-15 by mouth 2 ity of mg tablet 15:42: (two) [place] 32 times Medical daily as Branch needed. vitamin b Yes 1{tbl} Take 1 Univ ers complex-vit 7-15 tablet by ity of villatoro 10:42: mouth [place] c-folic 32 daily. Medical acid Branch (FAUZIA-CONOR) 0.8 mg tablet zolpidem 10 Yes 10mg Take 10 mg Univers mg tablet 7-15 by mouth ity of 10:42: at bedtime [place] 32 as needed Medical for Branch Insomnia. diazePAM 0 Yes 10mg Take 10 mg Uni vers (VALIUM) 5 7-15 by mouth 2 ity of mg tablet 10:42: (two) [place] 32 times Medical daily as Branch needed. vitamin b Yes 1{tbl} Take 1 Univ ers complex-vit 7-15 tablet by ity of villatoro 10:42: mouth [place] c-folic 32 daily. Medical acid Branch (FAUZIA-CONOR) 0.8 mg tablet zolpidem 10 Yes 10mg Take 10 mg Univers mg tablet 7-15 by mouth ity of 10:42: at bedtime [place] 32 as needed Medical for Branch Insomnia. diazePAM 0 Yes 10mg Take 10 mg Uni vers (VALIUM) 5 7-15 by mouth 2 ity of mg tablet 10:42: (two) [place] 32 times Medical daily as Branch needed. vitamin b Yes 1{tbl} Take 1 Univ ers complex-vit 7-15 tablet by ity of villatoro 10:42: mouth [place] c-folic 32 daily. Medical acid Branch (FAUZIA-CONOR) 0.8 mg tablet zolpidem 10 Yes 10mg Take 10 mg Univers mg tablet 7-15 by mouth ity of 10:42: at bedtime [place] 32 as needed Medical for Branch Insomnia. diazePAM Yes 10mg Take 10 mg Uni vers (VALIUM) 5 7-15 by mouth 2 ity of mg tablet 10:42: (two) [place] 32 times Medical daily as Branch needed. vitamin b Yes 1{tbl} Take 1 Univ ers complex-vit 7-15 tablet by ity of villatoro 10:42: mouth [place] c-folic 32 daily. Medical acid Branch (FAUZIA-CONOR) 0.8 mg tablet zolpidem 10 Yes 10mg Take 10 mg Univers mg tablet 7-15 by mouth ity of 10:42: at bedtime [place] 32 as needed Medical for Branch Insomnia. diazePAM Yes 10mg Take 10 mg Uni vers (VALIUM) 5 7-15 by mouth 2 ity of mg tablet 10:42: (two) [place] 32 times Medical daily as Branch needed. vitamin b Yes 1{tbl} Take 1 Univ ers complex-vit 7-15 tablet by ity of villatoro 10:42: mouth [place] c-folic 32 daily. Medical acid Branch (FAUZIA-CONOR) 0.8 mg tablet zolpidem 10 Yes 10mg Take 10 mg Univers mg tablet 7-15 by mouth ity of 10:42: at bedtime [place] 32 as needed Medical for Branch Insomnia. diazePAM Yes 10mg Take 10 mg Uni vers (VALIUM) 5 7-15 by mouth 2 ity of mg tablet 10:42: (two) [place] 32 times Medical daily as Branch needed. Regadenoson 2020- No [id number] .4mg 0.4 mg, Univers (LEXISCAN) 04-01 Slow IV ity o f injection 18:00: 17:00 Push, [place] 0.4 mg 00 :00 ONCE, 1 Medical dose, Leyla Branch 04/01/21 at 1300, Routine
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 Restricted medication : CARLITOS THOMPSON tc 2020- No [id number] 45mCi 45 Univer s 99m-tetrofo 04-01 millicurie i ty of smin 17:00: 17:01 , [place] ([facility]) 00 :00 Intravenou Medi sony injection s, ONCE, 1 Bran ch 45 dose, Leyla millicurie 04/01/21 at 1200, Routine tc 2020-0 2020- No [id number] 16.09 16.09 U nivers 99m-tetrofo 04-01 4104 i [facility] 16:02: 16:14 , [place] ([facility]) 00 :00 Intravenou Medi sony injection s, ONCE, 1 Bran ch 16.09 dose, Leyla millicurie 04/01/21 at 1115, Routine fentaNYL 2019-10 No Route: IV, Mem oria (ANES) 10-12 Drug form: l 18:10: INJ, ONCE, Stop date: 08/12/20 12:10:00 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 lidocaine 2019-10 No Route: IV, Me moria (ANES) 10-12 Drug form: l 18:10: INJ, ONCE, Stop date: 08/12/20 12:10:00 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 propofol 2019-10 No Route: IV, Mem oria (ANES) 10-12 Drug form: l 18:10: INJ, ONCE, Stop date: 08/12/20 12:10:00 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 ondansetron 2019-10 No Route: IV, Memoria (ANES) 10-12 Drug form: l 18:10: INJ, ONCE, Stop date: 08/12/20 12:10:00 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 metoclopram 2019-10 No Route: IV, Memoria jeanna (ANES) 10-12 Drug form: l 18:10: INJ, ONCE, [place] 00 Stop date: 08/12/20 12:10:00 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 fentaNYL 2019-10 No Route: IV, Mem oria (ANES) 10-12 Drug form: l 18:10: INJ, ONCE, Stop date: 08/12/20 12:10:00 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 lidocaine 2019-10 No Route: IV, Me moria (ANES) 1- Drug form: l 18:10: INJ, ONCE, [place] 00 Stop date: 08/12/20 12:10:00 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 propofol 2019-10 No Route: IV, Mem oria (ANES) - Drug form: l 18:10: INJ, ONCE, Stop date: 08/12/20 12:10:00 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 ondansetron 2019-10 No Route: IV, Memoria (ANES) 1- Drug form: l 18:10: INJ, ONCE, Stop date: 08/12/20 12:10:00 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 metoclopram 2019-10 No Route: IV, Memoria jeanna (ANES) - Drug form: l 18:10: INJ, ONCE, Stop date: 08/12/20 12:10:00 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 fentaNYL 2019-10 No Route: IV, Mem oria (ANES) - Drug form: l 18:10: INJ, ONCE, Stop date: 08/12/20 12:10:00 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 lidocaine 2019-10 No Route: IV, Me moria (ANES) 10-12 Drug form: l 18:10: INJ, ONCE, Stop date: 08/12/20 12:10:00 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 propofol 2019-10 No Route: IV, Mem oria (ANES) - Drug form: l 18:10: INJ, ONCE, Stop date: 08/12/20 12:10:00 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 ondansetron 2019-10 No Route: IV, Memoria (ANES) 1- Drug form: l 18:10: INJ, ONCE, Stop date: 08/12/20 12:10:00 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 metoclopram 2019-10 No Route: IV, Memoria jeanna (ANES) - Drug form: l 18:10: INJ, ONCE, Stop date: 08/12/20 12:10:00 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 ceFAZolin 2019-10 No Route: IV, Me moria (ANES) 1- Drug form: l 17:50: INJ, ONCE, Stop date: 08/12/20 11:50:00 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 ceFAZolin 2019-10 No Route: IV, Me moria (ANES) 1- Drug form: l 17:50: INJ, ONCE, Stop date: 08/12/20 11:50:00 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 ceFAZolin 2019-10 No Route: IV, Me moria (ANES) 1-04 Drug form: l 17:50: INJ, ONCE, [place] 00 Stop date: 08/12/20 11:50:00 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 Sodium 2020-1 No Route: IV, Memor ia Chloride 1-04 Total l 0.9% IV 17:14: Volume: Marlo (ANES) 500 00 500, Start mL date: 08/12/20 11:14:00 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, Stop date: 08/12/20 12:14:00 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 Sodium 2020-1 No Route: IV, Memor ia Chloride 1-04 Total l 0.9% IV 17:14: Volume: Marlo (ANES) 500 00 500, Start mL date: 08/12/20 11:14:00 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, Stop date: 08/12/20 12:14:00 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 Sodium 2020-1 No Route: IV, Memor ia Chloride 1-04 Total l 0.9% IV 17:14: Volume: [place] (ANES) 500 00 500, Start mL date: 08/12/20 11:14:00 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, Stop date: 08/12/20 12:14:00 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 Sodium 2020-1 No 500 mL, Memoria Chloride 1-04 Rate: 75 l 0.9% IV 500 16:52: ml/hr, Herm dionne mL 00 Infuse over: 6.7 hr, Route: IV, Dosing Weight 111.182 kg, Total Volume: 500, Start date: 08/12/20 10:52:00 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, Duration: 1 doses or times, Stop date: 08/12/20 17:33:00 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, 2.32, m2, 0 Sodium 2020-1 No 500 mL, Memoria Chloride 1-04 Rate: 75 l 0.9% IV 500 16:52: ml/hr, Herm dionne mL 00 Infuse over: 6.7 hr, Route: IV, Dosing Weight 111.182 kg, Total Volume: 500, Start date: 08/12/20 10:52:00 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, Duration: 1 doses or times, Stop date: 08/12/20 17:33:00 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, 2.32, m2, 0 Sodium 2020-1 No 500 mL, Memoria Chloride 1-04 Rate: 75 l 0.9% IV 500 16:52: ml/hr, Herm dionne mL 00 Infuse over: 6.7 hr, Route: IV, Dosing Weight 111.182 kg, Total Volume: 500, Start date: 08/12/20 10:52:00 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, Duration: 1 doses or times, Stop date: 08/12/20 17:33:00 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, 2.32, m2, 0 Potassium 2019-10 No Notes: Memori a Chloride 1-04 (Same [...] s with feeding tube less than 14 [place] (Dobhoff, J-tube etc) and pediatric and patients. Potassium 2019- No Notes: Memori a Chloride 1-04 (Same [...] s with feeding tube less than 14 [place] (Dobhoff, J-tube etc) and pediatric and patients. Potassium 2019-10 No Notes: Memori a Chloride 1-04 (Same [...] s with feeding tube less than 14 [place] (Dobhoff, J-tube etc) and pediatric and patients. Hydralazine 2019-10 No 10 mg, Kojo lynn 1-03 Route: l 21:11: IVP, Q4H, [place] Dosing Weight 111.182, kg, PRN Hypertensi on, Start date: 08/11/20 15:11:00 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, Duration: 30 day, Stop date: 09/10/20 15:10:00 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 Hydralazine 2019-10 No 10 mg, Kojo lynn 1-03 Route: l 21:11: IVP, Q4H, [place] 00 Dosing Weight 111.182, kg, PRN Hypertensi on, Start date: 08/11/20 15:11:00 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, Duration: 30 day, Stop date: 09/10/20 15:10:00 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 Hydralazine 2019-10 No 10 mg, Kojo lynn 10-11 Route: l 21:11: IVP, Q4H, Dosing Weight 111.182, kg, PRN Hypertensi on, Start date: 08/11/20 15:11:00 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, Duration: 30 day, Stop date: 09/10/20 15:10:00 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 Potassium 2019-10 No Notes: Memori a Chloride [...] s with feeding tube less than 14 [place] (Dobhoff, J-tube etc) and pediatric and patients. Potassium 2019-10 No Notes: Memori a Chloride 10-11 (Same as: l 14:12: K-Dur 20) "Do Not Crush" Give with food and full glass of water For patients unable to swallow tablet, dissolve in one half glass of water. Allow about 2 minutes for the tablets to disintegra te. Stir before giving to prepare slurry and administer . Please exclude Patient s with feeding tube less than 14 [place] (Dobhoff, J-tube etc) and pediatric and patients. Potassium 2019-10 No Notes: Memori a Chloride 10-11 (Same as: l 14:12: K-Dur 20) "Do Not Crush" Give with food and full glass of water For patients unable to swallow tablet, dissolve in one half glass of water. Allow about 2 minutes for the tablets to disintegra te. Stir before giving to prepare slurry and administer . Please exclude Patient s with feeding tube less than 14 [place] (Dobhoff, J-tube etc) and pediatric and patients. epoetin 2019-10 No Notes: Memoria franca - (Same as: l 15:00: Procrit) epoetin franca 2000 unit/1 ml VL Non-formul heydi For dialysis use only (Epogen) WASTE: F/P - Red; E -Red MEDICATION WASTE Product Size: 2000 mg Product Wasted: ___ mg epoetin 2019-10 No Notes: Memoria franca 10-10 (Same as: l 15:00: Procrit) [place] 00 epoetin franca 2000 unit/1 ml VL Non-formul heydi For dialysis use only (Epogen) WASTE: F/P - Red; E -Red MEDICATION WASTE Product Size: 2000 mg Product Wasted: ___ mg epoetin 2019-10 No Notes: Memoria franca 10-10 (Same as: l 15:00: Procrit) [place] 00 epoetin franca 2000 unit/1 ml VL Non-formul heydi For dialysis use only (Epogen) WASTE: F/P - Red; E -Red MEDICATION WASTE Product Size: 2000 mg Product Wasted: ___ mg Ambien 2019-10 No Notes: Memoria 10-10 (Same As: l 04:24: Ambien) [place] Ambien 2019-10 No Notes: Memoria 10-10 (Same As: l 04:24: Ambien) [place] Ambien 2019-10 No Notes: Memoria 10-10 (Same As: l 04:24: Ambien) [place] Melatonin 2019-10 No Notes: Kojo lynn MG Extended 10-10 (Same as: l Release 03:57: Melatonin) Herm dionne Tablet Melatonin 2019-10 No Notes: Kojo lynn MG Extended 10-10 (Same as: l Release 03:57: Melatonin) Herm dionne Tablet Melatonin 2019-10 No Notes: Kojo lynn MG Extended 10-10 (Same as: l Release 03:57: Melatonin) Herm dionne Tablet Ambien 2019-10 No PO, Memoria 10-10 Bedtime, 0 l 02:55: Refill(s) Zolpidem 2019-10 Yes 10 mg = 1 Kojo lynn tartrate 10 10-10 tab, PO, l MG Oral 02:55: Bedtime, Rafael n Tablet 00 PRN for [Ambien] sleep, 0 Refill(s) Ambien 2019-10 No PO, Memoria 10-10 Bedtime, 0 l 02:55: Refill(s) [place] 00 Zolpidem 2019-10 Yes 10 mg = 1 Kojo lynn tartrate 10 10-10 tab, PO, l MG Oral 02:55: Bedtime, Rafael n Tablet 00 PRN for [Ambien] sleep, 0 Refill(s) Ambien 2019-10 No PO, Memoria 10-10 Bedtime, 0 l 02:55: Refill(s) [place] 00 Zolpidem 2019-10 Yes 10 mg = 1 Kojo lynn tartrate 10 10-10 tab, PO, l MG Oral 02:55: Bedtime, Rafael n Tablet 00 PRN for [Ambien] sleep, 0 Refill(s) heparin 2019-10 No 10,000 Memoria 1-01 unit, 10 l 15:10: mL, Route: [place] 00 DIALYSIS, Drug form: INJ, ONCALL, Dosing Weight 111.182, kg, PRN Dialysis, Priority: STAT, Start date: 08/09/20 9:10:00 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, Duration: 1 doses or times, Stop date: Limited # of times, 0 heparin 2019-10 No 10,000 Memoria 1-01 unit, 10 l 15:10: mL, Route: [place] 00 DIALYSIS, Drug form: INJ, ONCALL, Dosing Weight 111.182, kg, PRN Dialysis, Priority: STAT, Start date: 08/09/20 9:10:00 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, Duration: 1 doses or times, Stop date: Limited # of times, 0 heparin 2019-10 No 10,000 Memoria 1-01 unit, 10 l 15:10: mL, Route: [place] 00 DIALYSIS, Drug form: INJ, ONCALL, Dosing Weight 111.182, kg, PRN Dialysis, Priority: STAT, Start date: 08/09/20 9:10:00 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, Duration: 1 doses or times, Stop date: [...] franca 0-31 (Same as: l 14:30: Procrit) [place] 00 epoetin franca 02374 unit/1 ml VL. Non-formul heydi For dialysis use only. (Procrit) WASTE: F/P - Red; E -Red MEDICATION WASTE Product Size: 20136 unit Product Wasted: ___ unit epoetin 2019-10 No Notes: Memoria franca 0-31 (Same as: l 14:30: Procrit) [place] 00 epoetin franca 08043 unit/1 ml VL. Non-formul heydi For dialysis use only. (Procrit) WASTE: F/P - Red; E -Red MEDICATION WASTE Product Size: 06555 unit Product Wasted: ___ unit epoetin 2019-10 No Notes: Memoria franca 0-31 (Same as: l 14:30: Procrit) [place] 00 epoetin franca 95142 unit/1 ml VL. Non-formul heydi For dialysis use only. (Procrit) WASTE: F/P - Red; E -Red MEDICATION WASTE Product Size: 10061 unit Product Wasted: ___ unit Sodium 2019-10 No 250 mL, Memoria Chloride 0-31 Rate: To l 0.9% 14:13: prime line [place] (titrate) 00 and flush 250 mL remaining blood products., Dosing Weight 111.182, kg, Route: IV, Total Volume: 250, Priority: Routine, Start Date: 08/08/20 9:13:00 CDT, Duration: 1 day, Stop date: 08/09/20 9:12:00 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, Replace Every: 24 hr, 0 Sodium 2019-10 No 250 mL, Memoria Chloride 0-31 Rate: To l 0.9% 14:13: prime line [place] (titrate) 00 and flush 250 mL remaining blood products., Dosing Weight 111.182, kg, Route: IV, Total Volume: 250, Priority: Routine, Start Date: 08/08/20 9:13:00 CDT, Duration: 1 day, Stop date: 08/09/20 9:12:00 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, Replace Every: 24 hr, 0 Sodium 2019-10 No 250 mL, Memoria Chloride 0-31 Rate: To l 0.9% 14:13: prime line [place] (titrate) 00 and flush 250 mL remaining blood products., Dosing Weight 111.182, kg, Route: IV, Total Volume: 250, Priority: Routine, Start Date: 08/08/20 9:13:00 CDT, Duration: 1 day, Stop date: 08/09/20 9:12:00 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, Replace Every: 24 hr, 0 Amlodipine 2019-10 No 1 cap, Memor ia 10 MG / 0-31 Route: PO, l Benazepril 14:00: Drug Form: H ermann hydrochlori 00 CAP, de 20 MG Dosing Oral Weight Capsule 111.182, kg, Daily, Start date: 08/08/20 9:00:00 CDT, Duration: 30 day, Stop date: 09/06/20 9:00:00 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 carvedilol 2019-10 No 12.5 mg, Mem oria 0-31 Route: PO, l 14:00: Drug form: [place] 00 TAB, Q12H, Dosing Weight 111.182, kg, Start date: 08/08/20 9:00:00 CDT, Duration: 30 day, Stop date: 09/06/20 21:00:00 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 amLODIPine 2019-10 No Notes: Memor ia 0-31 (Same as: l 14:00: Norvasc) lisinopril 2019-10 No Notes: Memor ia 0-31 (Same as: l 14:00: Prinivil, [place] 00 Zestril) Amlodipine 2019-10 No 1 cap, Memor ia 10 MG / 0-31 Route: PO, l Benazepril 14:00: Drug Form: H ermann hydrochlori 00 CAP, de 20 MG Dosing Oral Weight Capsule 111.182, kg, Daily, Start date: 08/08/20 9:00:00 CDT, Duration: 30 day, Stop date: 09/06/20 9:00:00 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 carvedilol 2019-10 No 12.5 mg, Mem oria 0-31 Route: PO, l 14:00: Drug form: [place] 00 TAB, Q12H, Dosing Weight 111.182, kg, Start date: 08/08/20 9:00:00 CDT, Duration: 30 day, Stop date: 09/06/20 21:00:00 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 amLODIPine 2019-10 No Notes: Memor ia 0-31 (Same as: l 14:00: Norvasc) [place] lisinopril 2019-10 No Notes: Memor ia 0-31 (Same as: l 14:00: Prinivil, [place] Zestril) Amlodipine 2019-10 No 1 cap, Memor ia 10 MG / 0-31 Route: PO, l Benazepril 14:00: Drug Form: H ermann hydrochlori 00 CAP, de 20 MG Dosing Oral Weight Capsule 111.182, kg, Daily, Start date: 08/08/20 9:00:00 CDT, Duration: 30 day, Stop date: 09/06/20 9:00:00 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 carvedilol 2019-10 No 12.5 mg, Mem oria 0-31 Route: PO, l 14:00: Drug form: [place] 00 TAB, Q12H, Dosing Weight 111.182, kg, Start date: 08/08/20 9:00:00 CDT, Duration: 30 day, Stop date: 09/06/20 21:00:00 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 amLODIPine 2019-10 No Notes: Memor ia 0-31 (Same as: l 14:00: Norvasc) [place] lisinopril 2019-10 No Notes: Memor ia 0-31 (Same as: l 14:00: Prinivil, [place] Zestril) Dilaudid 2019-10 No Notes: Memoria 0-31 Same as: l 13:46: Dilaudid [place] Dilaudid 2019-10 No Notes: Memoria 0-31 Same as: l 13:46: Dilaudid [place] Dilaudid 2019-10 No Notes: Memoria 0-31 Same as: l 13:46: Dilaudid [place] Epogen 2019-10 No 11,000 Memoria 0-31 unit, l 13:01: Route: [place] 00 SUB-Q, Drug form: INJ, Q-M-W-F, Dosing Weight 111.182, kg, Priority: NOW, Start date: 08/08/20 8:01:00 CDT, Duration: 30 day, Stop date: 09/04/20 9:00:00 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 Epogen 2019-10 No 11,000 Memoria 0-31 unit, l 13:01: Route: [place] 00 SUB-Q, Drug form: INJ, Q-M-W-F, Dosing Weight 111.182, kg, Priority: NOW, Start date: 08/08/20 8:01:00 CDT, Duration: 30 day, Stop date: 09/04/20 9:00:00 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 Epogen 2019-10 No 11,000 Memoria 0-31 unit, l 13:01: Route: [place] 00 SUB-Q, Drug form: INJ, Q-M-W-F, Dosing Weight 111.182, kg, Priority: NOW, Start date: 08/08/20 8:01:00 CDT, Duration: 30 day, Stop date: 09/04/20 9:00:00 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 Morphine 2019-10 No Notes: Memoria 0-31 (Same l 10:27: as:MORPhin [place] 00 e Sulfate) Morphine 2019-10 No Notes: Memoria 0-31 (Same l 10:27: as:MORPhin [place] 00 e Sulfate) Morphine 2019-10 No Notes: Memoria 0-31 (Same l 10:27: as:MORPhin [place] 00 e Sulfate) Morphine 2019-10 No Notes: Memoria 0-31 (Same l 01:44: as:MORPhin [place] 00 e Sulfate) Morphine 2019-10 No Notes: Memoria 0-31 (Same l 01:44: as:MORPhin [place] 00 e Sulfate) Morphine 2019-10 No Notes: Memoria 0-31 (Same l 01:44: as:MORPhin [place] 00 e Sulfate) normal 2019-10 No 2,000 mL, Memori a saline 0.9% 0-30 Rate: 100 l IV 2,000 mL 22:22: ml/hr, Herm dionne Infuse over: 20 hr, Route: IV, Dosing Weight 111.182 kg, Total Volume: 2,000, Start date: 08/07/20 17:22:00 CDT, Duration: 30 day, Stop date: 09/06/20 17:21:00 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, 2.32, m2, 0 normal 2019-10 No 2,000 mL, Memori a saline 0.9% 0-30 Rate: 100 l IV 2,000 mL 22:22: ml/hr, Herm dionne 00 Infuse over: 20 hr, Route: IV, Dosing Weight 111.182 kg, Total Volume: 2,000, Start date: 08/07/20 17:22:00 CDT, Duration: 30 day, Stop date: 09/06/20 17:21:00 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, 2.32, m2, 0 normal 2019- No 2,000 mL, Memori a saline 0.9% 0-30 Rate: 100 l IV 2,000 mL 22:22: ml/hr, Herm dionne 00 Infuse over: 20 hr, Route: IV, Dosing Weight 111.182 kg, Total Volume: 2,000, Start date: 08/07/20 17:22:00 CDT, Duration: 30 day, Stop date: 09/06/20 17:21:00 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, 2.32, m2, 0 Lasix 2019-10 No 80 mg, Memoria 0-30 Route: l 13:00: IVP, Drug [place] 00 form: INJ, BID Diuretic, Dosing Weight 117.002, kg, Start date: 08/07/20 8:00:00 CDT, Duration: 30 day, Stop date: 09/05/20 16:00:00 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 Lasix 2019-10 No 80 mg, Memoria 0-30 Route: l 13:00: IVP, Drug [place] 00 form: INJ, BID Diuretic, Dosing Weight 117.002, kg, Start date: 08/07/20 8:00:00 CDT, Duration: 30 day, Stop date: 09/05/20 16:00:00 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 Lasix 2019-10 No 80 mg, Memoria 0-30 Route: l 13:00: IVP, Drug [place] 00 form: INJ, BID Diuretic, Dosing Weight 117.002, kg, Start date: 08/07/20 8:00:00 CDT, Duration: 30 day, Stop date: 09/05/20 16:00:00 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 Magnesium 2019-10 No Notes: Memori a Sulfate 0-30 WASTE: F/P l 12:58: - Sink; E [place] - Municipal Trash Bin Potassium 2019-10 No Notes: Memori a Chloride 0-30 (Same as: l 12:58: K-Dur 20) [place] 00 "Do Not Crush" Give with food and full glass of water For patients unable to swallow tablet, dissolve in one half glass of water. Allow about 2 minutes for the tablets to disintegra te. Stir before giving to prepare slurry and administer . Please exclude Patient s with feeding tube less than 14 [place] (Dobhoff, J-tube etc) and pediatric and patients. Magnesium 2019-10 No Notes: Memori a Sulfate 0-30 WASTE: F/P l 12:58: - Sink; E [place] 00 - Municipal Trash Bin Potassium 2019-10 No Notes: Memori a Chloride 0-30 (Same as: l 12:58: K-Dur 20) [place] 00 "Do Not Crush" Give with food and full glass of water For patients unable to swallow tablet, dissolve in one half glass of water. Allow about 2 minutes for the tablets to disintegra te. Stir before giving to prepare slurry and administer . Please exclude Patient s with feeding tube less than 14 [place] (Dobhoff, J-tube etc) and pediatric and patients. Magnesium 2019-10 No Notes: Memori a Sulfate 0-30 WASTE: F/P l 12:58: - Sink; E [place] 00 - Municipal Trash Bin Potassium 2019-10 No Notes: Memori a Chloride 0-30 (Same as: l 12:58: K-Dur 20) [place] 00 "Do Not Crush" Give with food and full glass of water For patients unable to swallow tablet, dissolve in one half glass of water. Allow about 2 minutes for the tablets to disintegra te. Stir before giving to prepare slurry and administer . Please exclude Patient s with feeding tube less than 14 [place] (Dobhoff, J-tube etc) and pediatric and patients. Potassium 2019-10 No Notes: Memori a Chloride 0-30 Infuse at l 11:00: a rate of [place] 00 10 mEq/hr. (Same as: KCL) Potassium 2019-10 No Notes: Memori a Chloride 0-30 Infuse at l 11:00: a rate of [place] 00 10 mEq/hr. (Same as: KCL) Potassium [...] 08/07/20 11:37:00 CDT, 2.32, m2, 0 normal 2020-1 No 250 mL, Memoria saline 0.9% 0-30 Rate: 50 l IV 250 mL 10:38: ml/hr, Rafael n 00 Infuse over: 5 hr, Route: IV, Dosing Weight 111.182 kg, Total Volume: 250, Start date: 08/07/20 5:38:00 CDT, Duration: 6 hr, Stop date: 08/07/20 11:37:00 CDT, 2.32, m2, 0 normal 2020-1 No 250 mL, Memoria saline 0.9% 0-30 Rate: 50 l IV 250 mL 10:38: ml/hr, Rafael n 00 Infuse over: 5 hr, Route: IV, Dosing Weight 111.182 kg, Total Volume: 250, Start date: 08/07/20 5:38:00 CDT, Duration: 6 hr, Stop date: 08/07/20 11:37:00 CDT, 2.32, m2, 0 normal 2020-1 No 250 mL, Memoria saline 0.9% 0-30 Rate: 50 l IV 250 mL 10:37: ml/hr, Rafael n 00 Infuse over: 5 hr, Route: IV, Dosing Weight 111.182 kg, Total Volume: 250, Start date: 08/07/20 5:37:00 CDT, Duration: 30 day, Stop date: 09/06/20 5:36:00 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, 2.32, m2 normal 2020-1 No 250 mL, Memoria saline 0.9% 0-30 Rate: 50 l IV 250 mL 10:37: ml/hr, Rafael n 00 Infuse over: 5 hr, Route: IV, Dosing Weight 111.182 kg, Total Volume: 250, Start date: 08/07/20 5:37:00 CDT, Duration: 30 day, Stop date: 09/06/20 5:36:00 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, 2.32, m2 normal 2019-10 No 250 mL, Memoria saline 0.9% 0-30 Rate: 50 l IV 250 mL 10:37: ml/hr, Rafael n 00 Infuse over: 5 hr, Route: IV, Dosing Weight 111.182 kg, Total Volume: 250, Start date: 08/07/20 5:37:00 CDT, Duration: 30 day, Stop date: 09/06/20 5:36:00 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, 2.32, m2 Hydralazine 2019-10 No Notes: Kojo [...] 0-30 (Same As: l 05:20: Ambien) [place] Ambien 2019-10 No Notes: Memoria 0-30 (Same As: l 05:20: Ambien) [place] 00 Ambien 2019-10 No Notes: Memoria 0-30 (Same As: l 05:20: Ambien) [place] 00 heparin 2019-10 No Notes: Memoria 0-30 porcine l 05:00: heparin [place] 00 heparin 2019-10 No Notes: Memoria 0-30 porcine l 05:00: heparin [place] 00 heparin 2019-10 No Notes: Memoria 0-30 porcine l 05:00: heparin [place] 00 Lasix 2019-10 No Notes: Memoria 0-30 (Same as: l 01:32: Lasix) [place] 00 MEDICATION WASTE Product Size: 40 mg Product Wasted: ___ mg Lasix 2019-10 No Notes: Memoria 0-30 (Same as: l 01:32: Lasix) [place] 00 MEDICATION WASTE Product Size: 40 mg Product Wasted: ___ mg Lasix 2019-10 No Notes: Memoria 0-30 (Same as: l 01:32: Lasix) [place] 00 MEDICATION WASTE Product Size: 40 mg Product Wasted: ___ mg Ondansetron 2019-10 No Notes: Kojo lynn 0-30 (Same as: l 01:31: Zofran) [place] 00 MEDICATION WASTE Product Size: 4 mg Product Wasted: ___ mg Acetaminoph 2019-10 No Notes: Do M emoria en 325 MG / 0-30 not exceed l Hydrocodone 01:31: 4gm/day of [place] Bitartrate 00 acetaminop 10 MG Oral hen. Tablet (Same as: [[place] 10/325] 325/10) Acetaminoph 2019-10 No Notes: Kojo lynn en 325 MG / 0-30 (Same as: l Hydrocodone 01:31: [place] Merced[place] nn Bitartrate 00 325/5) Do 5 MG Oral not exceed Tablet 4gm/day of [[place] acetaminop 5/325] hen. Ondansetron 2019-10 No Notes: Kojo lynn 0-30 (Same as: l 01:31: Zofran) [place] 00 MEDICATION WASTE Product Size: 4 mg Product Wasted: ___ mg Acetaminoph 2019-10 No Notes: Do M emoria en 325 MG / 0-30 not exceed l Hydrocodone 01:31: 4gm/day of [place] Bitartrate 00 acetaminop 10 MG Oral hen. Tablet (Same as: [[place] 10/325] 325/10) Acetaminoph 2019-10 No Notes: Kojo lynn en 325 MG / 0-30 (Same as: l Hydrocodone 01:31: [place] nn Bitartrate 00 325/5) Do 5 MG Oral not exceed Tablet 4gm/day of [[place] acetaminop 5/325] hen. Ondansetron 2019-10 No Notes: Kojo lynn 0-30 (Same as: l 01:31: Zofran) [place] 00 MEDICATION WASTE Product Size: 4 mg Product Wasted: ___ mg Acetaminoph 2019-10 No Notes: Do M emoria en 325 MG / 0-30 not exceed l Hydrocodone 01:31: 4gm/day of [place] Bitartrate 00 acetaminop 10 MG Oral hen. Tablet (Same as: [[place] 10/325] 325/10) Acetaminoph 2019-10 No Notes: Kojo lynn en 325 MG / 0-30 (Same as: l Hydrocodone 01:31: [place] nn Bitartrate 00 325/5) Do 5 MG Oral not exceed Tablet 4gm/day of [[place] acetaminop 5/325] hen. Dilaudid 2019-10 No 1 mg, Memoria 0-30 Route: l 01:16: IVP, ONCE, Dosing Weight 117.002, kg, Priority: STAT, Start date: 08/06/20 20:16:00 CDT, Stop date: 08/06/20 20:16:00 CDT Dilaudid 2019-10 No 1 mg, Memoria 0-30 Route: l 01:16: IVP, ONCE, Dosing Weight 117.002, kg, Priority: STAT, Start date: 08/06/20 20:16:00 CDT, Stop date: 08/06/20 20:16:00 CDT Dilaudid 2019-10 No 1 mg, Memoria 0-30 Route: l 01:16: IVP, ONCE, Dosing Weight 117.002, kg, Priority: STAT, Start date: 08/06/20 20:16:00 CDT, Stop date: 08/06/20 20:16:00 CDT Dextrose 2019-10 No 12.5 gm, Memor ia 50% Syringe 0-30 25 mL, l ([id number]) 01:09: Route: [place] 00 IVP, Drug Form: INJ, Dosing Weight 117.002, kg, PRN, PRN Blood Glucose Results, Start date: 08/06/20 20:09:00 CDT, Duration: 30 day, Stop date: 09/05/20 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, 0 Glucagon 2019-10 No 1 mg, Memoria 0-30 Route: IM, l 01:09: Drug form: Marlo PDR/INJ, PRN, Dosing Weight 117.002, kg, PRN Blood Glucose Results, Start date: 08/06/20 20:09:00 CDT, Duration: 30 day, Stop date: 09/05/20 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, 0 Dextrose 2020-1 No 12.5 gm, Memor ia 50% Syringe 0-30 25 mL, l (D50W) 01:09: Route: [place] 00 IVP, Drug Form: INJ, Dosing Weight 117.002, kg, PRN, PRN Blood Glucose Results, Start date: 08/06/20 20:09:00 CDT, Duration: 30 day, Stop date: 09/05/20 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, 0 Glucagon 2020-1 No 1 mg, Memoria 0-30 Route: IM, l 01:09: Drug form: [place] 00 PDR/INJ, PRN, Dosing Weight 117.002, kg, PRN Blood Glucose Results, Start date: 08/06/20 20:09:00 CDT, Duration: 30 day, Stop date: 09/05/20 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, 0 Dextrose 2020-1 No 12.5 gm, Memor ia 50% Syringe 0-30 25 mL, l (D50W) 01:09: Route: [place] 00 IVP, Drug Form: INJ, Dosing Weight 117.002, kg, PRN, PRN Blood Glucose Results, Start date: 08/06/20 20:09:00 CDT, Duration: 30 day, Stop date: 09/05/20 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 Magnesium 2019-10 No Notes: Memori a Sulfate 0-30 WASTE: F/P l 00:44: - Sink; E [place] 00 - Municipal Trash Bin Potassium 2019-10 No Notes: Memori a Chloride 0-30 (Same as: l 00:44: K-Dur 20) [place] 00 "Do Not Crush" Give with food and full glass of water For patients unable to swallow tablet, dissolve in one half glass of water. Allow about 2 minutes for the tablets to disintegra te. Stir before giving to prepare slurry and administer . Please exclude Patient s with feeding tube less than 14 [place] (Dobhoff, J-tube etc) and pediatric and patients. Magnesium 2019-10 No Notes: Memori a Sulfate 0-30 WASTE: F/P l 00:44: - Sink; E [place] - Municipal Trash Bin Potassium 2019-10 No Notes: Memori a Chloride 0-30 (Same as: l 00:44: K-Dur 20) [place] 00 "Do Not Crush" Give with food and full glass of water For patients unable to swallow tablet, dissolve in one half glass of water. Allow about 2 minutes for the tablets to disintegra te. Stir before giving to prepare slurry and administer . Please exclude Patient s with feeding tube less than 14 [place] (Dobhoff, J-tube etc) and pediatric and patients. Dilaudid 2019-10 No 1 mg, Memoria 0-29 Route: l 23:27: IVP, ONCE, [place] Dosing Weight 117.002, kg, Priority: STAT, Start date: 08/06/20 18:27:00 CDT, Stop date: 08/06/20 18:27:00 CDT Dilaudid 2019-10 No 1 mg, Memoria 0-29 Route: l 23:27: IVP, ONCE, Marlo Dosing Weight 117.002, kg, Priority: STAT, Start date: 08/06/20 18:27:00 CDT, Stop date: 08/06/20 18:27:00 CDT Dilaudid 2019-10 No 1 mg, Memoria 0-29 Route: l 23:27: IVP, ONCE, [place] Dosing Weight 117.002, kg, Priority: STAT, Start date: 08/06/20 18:27:00 CDT, Stop date: 08/06/20 18:27:00 CDT Potassium 2020-1 No 40 mEq, Memor ia Chloride 0- Route: PO, l 22:56: Drug form: Marlo ERTAB, ONCE, Dosing Weight 117.002, kg, Priority: STAT, Start date: 08/06/20 17:56:00 CDT, Stop date: 08/06/20 17:56:00 CDT Potassium 2020-1 No 40 mEq, Memor ia Chloride 0 Route: PO, l 22:56: Drug form: [place] 00 ERTAB, ONCE, Dosing Weight 117.002, kg, Priority: STAT, Start date: 08/06/20 17:56:00 CDT, Stop date: 08/06/20 17:56:00 CDT Potassium 2019-1 No 40 mEq, Memor ia Chloride 0 Route: PO, l 22:56: Drug form: [place] 00 ERTAB, ONCE, Dosing Weight 117.002, kg, Priority: STAT, Start date: 08/06/20 17:56:00 CDT, Stop date: 08/06/20 17:56:00 CDT Morphine 2019-1 No 4 mg, Memoria 0- Route: l 22:44: IVP, ONCE, Dosing Weight 117.002, kg, Priority: STAT, Start date: 08/06/20 17:44:00 CDT, Stop date: 08/06/20 17:44:00 CDT Zofran 2019-1 No 4 mg, Memoria 0-29 Route: l 22:44: IVP, Drug form: INJ, ONCE, Dosing Weight 117.002, kg, Priority: STAT, Start date: 08/06/20 17:44:00 CDT, Stop date: 08/06/20 17:44:00 CDT Morphine 2019-1 No 4 mg, Memoria 0-29 Route: l [...] 0-29 Route: l 22:44: IVP, ONCE, Marlo Dosing Weight 117.002, kg, Priority: STAT, Start [...] 20 MG Pharmacy: [facility] [place], 170.18, cm, 07/06/20 5:14:00 CDT, Height, 105, kg, 07/06/20 5:14:00 CDT, Weight cefdinir 2019-10 Yes 300 mg = 1 Mem oria 300 MG Oral 0-07 cap, PO, l Capsule 17:35: Daily, X 7 Herm dionne 00 day, # 7 cap, 0 Refill(s), Pharmacy: [facility], 170.18, cm, 07/06/20 5:14:00 CDT, Height, 105, kg, 07/06/20 5:14:00 CDT, Weight Metronidazo 2019-10 Yes 500 mg = 1 Memoria le 500 MG 0-07 tab, PO, l Oral Tablet 17:35: Q8H, X 7 He rmann [Flagyl] 00 day, # 21 tab, 0 Refill(s), Pharmacy: [facility] [place], 170.18, cm, 07/06/20 5:14:00 CDT, Height, 105, kg, 07/06/20 5:14:00 CDT, Weight Amlodipine 2019-10 Yes 1 cap, PO, M emoria 10 MG / 0-07 Daily, # l Benazepril 17:35: 30 cap, 0 He rmann hydrochlori 00 Refill(s), de 20 MG Pharmacy: [facility] [place], 170.18, cm, 07/06/20 5:14:00 CDT, Height, 105, kg, 07/06/20 5:14:00 CDT, Weight cefdinir 2019-10 Yes 300 mg = 1 Mem oria 300 MG Oral 0-07 cap, PO, l Capsule 17:35: Daily, X 7 Herm dionne 00 day, # 7 cap, 0 Refill(s), Pharmacy: [facility], 170.18, cm, 07/06/20 5:14:00 CDT, Height, 105, kg, 07/06/20 5:14:00 CDT, Weight Metronidazo 2019-10 Yes 500 mg = 1 Memoria le 500 MG 0-07 tab, PO, l Oral Tablet 17:35: Q8H, X 7 He rmann [Flagyl] 00 day, # 21 tab, 0 Refill(s), Pharmacy: [facility], 170.18, cm, 07/06/20 5:14:00 CDT, Height, 105, kg, 07/06/20 5:14:00 CDT, Weight Amlodipine 2019-10 Yes 1 cap, PO, M emoria 10 MG / 0-07 Daily, # l Benazepril 17:35: 30 cap, 0 He rmann hydrochlori 00 Refill(s), de 20 MG Pharmacy: [facility] [place], 170.18, cm, 07/06/20 5:14:00 CDT, Height, 105, kg, 07/06/20 5:14:00 CDT, Weight cefdinir 2019-10 Yes 300 mg = 1 Mem oria 300 MG Oral 0-07 cap, PO, l Capsule 17:35: Daily, X 7 Herm dionne 00 day, # 7 cap, 0 Refill(s), Pharmacy: [facility], 170.18, cm, 07/06/20 5:14:00 CDT, Height, 105, kg, 07/06/20 5:14:00 CDT, Weight Metronidazo 2019-10 Yes 500 mg = 1 Memoria le 500 MG 0-07 tab, PO, l Oral Tablet 17:35: Q8H, X 7 He rmann [Flagyl] 00 day, # 21 tab, 0 Refill(s), Pharmacy: [facility] [place], 170.18, cm, 07/06/20 5:14:00 CDT, Height, 105, kg, 07/06/20 5:14:00 CDT, Weight Protonix 2019-10 No Notes: Memoria 0-07 Tablet l 12:30: should not [place] 00 be chewed or crushed. (Same as: Protonix) Protonix 2019-10 No Notes: Memoria 0-07 Tablet l 12:30: should not [place] 00 be chewed or crushed. (Same as: Protonix) Protonix 2019-10 No Notes: Memoria 0-07 Tablet l 12:30: should not [place] 00 be chewed or crushed. (Same as: [...] s with feeding tube less than 14 [place] (Dobhoff, J-tube etc) and pediatric and patients. Potassium 2019-10 No Notes: Memori a Chloride 0-06 (Same as: l 22:47: K-Dur 20) [place] 00 "Do Not Crush" Give with food and full glass of water For patients unable to swallow tablet, dissolve in one half glass of water. Allow about 2 minutes for the tablets to disintegra te. Stir before giving to prepare slurry and administer . Please exclude Patient s with feeding tube less than 14 Bangl[place] (Dobhoff, J-tube etc) and pediatric and patients. [...] s with feeding tube less than 14 [place] (Dobhoff, J-tube etc) and pediatric and patients. Clonidine 2019-10 No Notes: Memori a 0-06 (Same As: l 22:46: Catapres) Clonidine 2019-10 No Notes: Memori a 0-06 (Same As: l 22:46: Catapres) Clonidine 2019-10 No Notes: Memori a 0-06 (Same As: l 22:46: Catapres) Sucralfate 2019-10 No Notes: February M emoria 100 MG/ML 0-06 interfere l Oral 18:00: w/enteral [place] Suspension 00 feeds - [Carafate] Take 1 hr before or 2 hr after antacids, dairy pdt, meals & minerals - On empty stomach. Sucralfate 2019-10 No Notes: February M emoria 100 MG/ML 0-06 interfere l Oral 18:00: w/enteral [place] Suspension 00 feeds - [Carafate] Take 1 hr before or 2 hr after antacids, dairy pdt, meals & minerals - On empty stomach. Sucralfate 2019-10 No Notes: February M emoria 100 MG/ML 0-06 interfere l Oral 18:00: w/enteral [place]lo Suspension 00 feeds - [Carafate] Take 1 hr before or 2 hr after antacids, dairy pdt, meals & minerals - On empty stomach. sevelamer 2019-10 No Notes: Memori a 0-06 Same as: l 17:00: Renvela sevelamer 2019-10 No Notes: Memori a 0-06 Same as: l 17:00: Renvela sevelamer 2019-10 No Notes: Memori a 0-06 Same as: l 17:00: Renvela Potassium 2019-10 No Notes: Memori a Chloride 0-06 (Same as: l 13:00: K-Dur 20) "Do Not Crush" Give with food and full glass of water For patients unable to swallow tablet, dissolve in one half glass of water. Allow about 2 minutes for the tablets to disintegra te. Stir before giving to prepare slurry and administer . Please exclude Patient s with feeding tube less than 14 [place] (Dobhoff, J-tube etc) and pediatric and patients. Potassium 2019-10 No Notes: Memori a Chloride 0-06 (Same as: l 13:00: K-Dur 20) [place] 00 "Do Not Crush" Give with food and full glass of water For patients unable to swallow tablet, dissolve in one half glass of water. Allow about 2 minutes for the tablets to disintegra te. Stir before giving to prepare slurry and administer . Please exclude Patient s with feeding tube less than 14 [place] (Dobhoff, J-tube etc) and pediatric and patients. Potassium 2019-10 No Notes: Memori a Chloride 0-06 (Same as: l 13:00: K-Dur 20) [place] 00 "Do Not Crush" Give with food and full glass of water For patients unable to swallow tablet, dissolve in one half glass of water. Allow about 2 minutes for the tablets to disintegra te. Stir before giving to prepare slurry and administer . Please exclude Patient s with feeding tube less than 14 [place] (Dobhoff, J-tube etc) and pediatric and patients. Ceftriaxone 2019-10 No Notes: Kojo lynn 0-05 (Same As: l 23:00: Rocephin). Use with 100 mL NS and infuse over 30 min MEDICATION WASTE Product Size: 1000 mg Product Wasted: ___ mg Ceftriaxone 2019-10 No Notes: Kojo lynn 0-05 (Same As: l 23:00: Rocephin). Use with 100 mL NS and infuse over 30 min MEDICATION WASTE Product Size: 1000 mg Product Wasted: ___ mg Ceftriaxone 2019-10 No Notes: Kojo lynn 0-05 (Same As: l 23:00: Rocephin). Use with 100 mL NS and infuse over 30 min MEDICATION WASTE Product Size: 1000 mg Product Wasted: ___ mg Bentyl 2019-10 No Notes: Memoria 0-05 (Same as: l 22:00: Bentyl) Bentyl 2019-10 No Notes: Memoria 0-05 (Same as: l 22:00: Bentyl) Bentyl 2019-10 No Notes: Memoria 0-05 (Same as: l 22:00: Bentyl) Potassium 2019-10 No Notes: Memori a Chloride [...] s with feeding tube less than 14 [place] (Dobhoff, J-tube etc) and pediatric and patients. Potassium 2019-10 No Notes: Memori a Chloride 0-05 (Same as: l 12:44: K-Dur 20) [place] 00 "Do Not Crush" Give with food and full glass of water For patients unable to swallow tablet, dissolve in one half glass of water. Allow about 2 minutes for the tablets to disintegra te. Stir before giving to prepare slurry and administer . Please exclude Patient s with feeding tube less than 14 [place] (Dobhoff, J-tube etc) and pediatric and patients. Potassium 2019-10 No Notes: Memori a Chloride 0-05 (Same as: l 12:44: K-Dur 20) [place] 00 "Do Not Crush" Give with food and full glass of water For patients unable to swallow tablet, dissolve in one half glass of water. Allow about 2 minutes for the tablets to disintegra te. Stir before giving to prepare slurry and administer . Please exclude Patient s with feeding tube less than 14 [place] (Dobhoff, J-tube etc) and pediatric and patients. [...] Sodium 0-04 TIME l Chloride 23:00: CRITICAL Emrcedez nn 0.9% IV 100 00 MEDICATION mL (Same As: Vancocin) For adult patients only: Round to nearest 250 mg per Medical Staff approval Potassium 2019-10 No Notes: Memori a Chloride 0-04 (Same as: l 15:16: K-Dur 20) [place] 00 "Do Not Crush" Give with food and full glass of water For patients unable to swallow tablet, dissolve in one half glass of water. Allow about 2 minutes for the tablets to disintegra te. Stir before giving to prepare slurry and administer . Please exclude Patient s with feeding tube less than 14 [place] (Dobhoff, J-tube etc) and pediatric and patients. Potassium 2019-10 No Notes: Memori a Chloride 0-04 (Same as: l 15:16: K-Dur 20) [place] 00 "Do Not Crush" Give with food and full glass of water For patients unable to swallow tablet, dissolve in one half glass of water. Allow about 2 minutes for the tablets to disintegra te. Stir before giving to prepare slurry and administer . Please exclude Patient s with feeding tube less than 14 [place] (Dobhoff, J-tube etc) and pediatric and patients. Potassium 2019-10 No Notes: Memori a Chloride 0-04 (Same as: l 15:16: K-Dur 20) [place] 00 "Do Not Crush" Give with food and full glass of water For patients unable to swallow tablet, dissolve in one half glass of water. Allow about 2 minutes for the tablets to disintegra te. Stir before giving to prepare slurry and administer . Please exclude Patient s with feeding tube less than 14 [place] (Dobhoff, J-tube etc) and pediatric and patients. Flagyl 2019-10 No Notes: Memoria 0-03 (Same as: l 23:00: Flagyl) Marlo 00 Avoid alcohol. Flagyl 2019-10 No Notes: Memoria 0-03 (Same as: l 23:00: Flagyl) Mar[place] 00 Avoid alcohol. Flagyl 2019-10 No Notes: Memoria 0-03 (Same as: l 23:00: Flagyl) [place] 00 Avoid alcohol. Potassium 2019-10 No Notes: [...] s with feeding tube less than 14 [place] (Dobhoff, J-tube etc) and pediatric and patients. Potassium 2019-10 No Notes: Memori a Chloride 0-03 (Same as: l 16:13: K-Dur 20) [place] 00 "Do Not Crush" Give with food and full glass of water For patients unable to swallow tablet, dissolve in one half glass of water. Allow about 2 minutes for the tablets to disintegra te. Stir before giving to prepare slurry and administer . Please exclude Patient s with feeding tube less than 14 [place] (Dobhoff, J-tube etc) and pediatric and patients. [...] s with feeding tube less than 14 [place] (Dobhoff, J-tube etc) and pediatric and patients. [...] 0-01 (Same as: l 19:33: Zofran) Marlo Zofran 2019-10 No Notes: Memoria 0-01 (Same as: l 19:33: Zofran) [place] Zofran 2019-10 No Notes: Memoria 0-01 (Same as: l 19:33: Zofran) [place] 00 Dextrose 2019-10 No 12.5 gm, Memor ia 50% Syringe 0-01 25 mL, l (D50W) 19:27: Route: [place] IVP, Drug Form: INJ, Dosing Weight 105, kg, PRN, PRN Blood Glucose Results, Start date: 07/09/20 14:27:00 CDT, Duration: 30 day, Stop date: 08/08/20 14:26:00 CDT, 0 Glucagon 2019- No 1 mg, Memoria 0-01 Route: IM, l 19:27: Drug form: [place] 00 PDR/INJ, PRN, Dosing Weight 105, kg, PRN Blood Glucose Results, Start date: 07/09/20 14:27:00 CDT, Duration: 30 day, Stop date: 08/08/20 14:26:00 CDT, 0 Insulin 2019-1 No Notes: Memoria Lispro 0-01 (Same as: [...] Stop date: 08/08/20 14:26:00 CDT, 0 Glucagon 2019- No 1 mg, Memoria 0-01 Route: IM, l 19:27: Drug form: [place] 00 PDR/INJ, PRN, Dosing Weight 105, kg, PRN Blood Glucose Results, Start date: 07/09/20 14:27:00 CDT, Duration: 30 day, Stop date: 08/08/20 14:26:00 CDT, 0 Insulin 2019- No Notes: Memoria Lispro 0-01 (Same as: [...] s with feeding tube less than 14 [place] (Dobhoff, J-tube etc) and pediatric and patients. [...] s with feeding tube less than 14 [place] (Dobhoff, J-tube etc) and pediatric and patients. Potassium 2019-10 No Notes: Memori a Chloride 0-01 (Same as: l 15:51: K-Dur 20) [place] 00 "Do Not Crush" Give with food and full glass of water For patients unable to swallow tablet, dissolve in one half glass of water. Allow about 2 minutes for the tablets to disintegra te. Stir before giving to prepare slurry and administer . Please exclude Patient s with feeding tube less than 14 [place] (Dobhoff, J-tube etc) and pediatric and patients. [...] s with feeding tube less than 14 [place] (Dobhoff, J-tube etc) and pediatric and patients. Potassium No Notes: Memori a Chloride 9-30 [...] s with feeding tube less than 14 [place] (Dobhoff, J-tube etc) and pediatric and patients. Potassium 2020-0 No Notes: Memori a Chloride 07-08 (Same [...] s with feeding tube less than 14 [place] (Dobhoff, J-tube etc) and pediatric and patients. Tylenol 0 No Notes: Do Memor ia 07-07 not exceed l 15:39: 4 gm/day. [place] 00 (Same as: Tylenol) Tylenol No Notes: Do Memor ia 07-07 not exceed l 15:39: 4 gm/day. [place] 00 (Same as: Tylenol) Tylenol No Notes: Do Memor ia 07-07 not exceed l 15:39: 4 gm/day. (Same as: Tylenol) Roxicodone No Notes: Memor ia 07-07 (Same as: l 15:38: Roxicodone ) Roxicodone 0 No Notes: Memor ia 07-07 (Same as: l 15:38: Roxicodone ) Roxicodone 0 No Notes: Memor ia 07-07 (Same as: l 15:38: Roxicodone ) Acetaminoph 2019-0 No 1 tab, Kojo lynn en 325 MG / 07-07 Route: PO, l Oxycodone 15:33: Drug Form: Jarad rmdionne Hydrochlori 00 TAB, de 5 MG Dosing Oral Tablet Weight [Percocet 105, kg, 5/325] Q6H, PRN Pain Score 7-10, Start date: 07/07/20 10:33:00 CDT, Duration: 30 day, Stop date: 08/06/20 10:32:00 CDT Acetaminoph 2020-0 No 1 tab, Kojo lynn en 325 MG / 07-07 Route: PO, l Oxycodone 15:33: Drug Form: Jarad rmdionne Hydrochlori 00 TAB, de 5 MG Dosing Oral Tablet Weight [Percocet 105, kg, 5/325] Q6H, PRN Pain Score 7-10, Start date: 07/07/20 10:33:00 CDT, Duration: 30 day, Stop date: 08/06/20 10:32:00 CDT Acetaminoph 2019-0 No 1 tab, Kojo lynn en 325 MG / 07-07 Route: PO, l Oxycodone 15:33: Drug Form: Jarad rider Hydrochlori 00 TAB, de 5 MG Dosing Oral Tablet Weight [Percocet 105, kg, 5/325] Q6H, PRN Pain Score 7-10, Start date: 07/07/20 10:33:00 CDT, Duration: 30 day, Stop date: 08/06/20 10:32:00 CDT Hydralazine No Notes: Kojo lynn - (Same as: l 15:31: Apresoline [place] 00 ) May interfere w/enteral feedings. Take With Food Hydralazine 2019-0 No Notes: Kojo lynn -29 (Same as: l 15:31: Apresoline [place] 00 ) May interfere w/enteral feedings. Take With Food Hydralazine 2019-0 No Notes: Kojo lynn - (Same as: l 15:31: Apresoline [place] 00 ) May interfere w/enteral feedings. Take With Food Miralax 2019-0 No Notes: Memoria 07-07 Dissolve l 14:00: in 8 oz of [place] 00 water or juice. (Same as: Miralax) cefepime 0 No Notes: Memoria 07-07 (Same As: l 14:00: Maxipime) MEDICATION WASTE Product Size: 1000 mg Product Wasted: ___ mg Amlodipine 2019-0 No Notes: Memor ia 07-07 (Same as: l 14:00: Norvasc) enalapril 2019-0 No Notes: Memori a 07-07 (Same as: l 14:00: Vasotec) Miralax 2019-0 No Notes: Memoria 07-07 Dissolve l 14:00: in 8 oz of [place] 00 water or juice. (Same as: Miralax) cefepime 0 No Notes: Memoria 07-07 (Same As: l 14:00: Maxipime) [place] 00 MEDICATION WASTE Product Size: 1000 mg Product Wasted: ___ mg Amlodipine No Notes: Memor ia 07-07 (Same as: l 14:00: Norvasc) enalapril No Notes: Memori a 07-07 (Same as: l 14:00: Vasotec) Miralax No Notes: Memoria 07-07 Dissolve l 14:00: in 8 oz of water or juice. (Same as: Miralax) cefepime No Notes: Memoria 07-07 (Same As: l 14:00: Maxipime) Mar[place] 00 MEDICATION WASTE Product Size: 1000 mg Product Wasted: ___ mg Amlodipine No Notes: Memor ia 07-07 (Same as: l 14:00: Norvasc) enalapril No Notes: Memori a 07-07 (Same as: l 14:00: Vasotec) Potassium No Notes: Memori a Chloride 07-07 (Same as: l 13:: K-Dur 20) [place] 00 "Do Not Crush" Give with food and full glass of water For patients unable to swallow tablet, dissolve in one half glass of water. Allow about 2 minutes for the tablets to disintegra te. Stir before giving to prepare slurry and administer . Please exclude Patient s with feeding tube less than 14 [place] (Dobhoff, J-tube etc) and pediatric and patients. Potassium 0 No Notes: Memori a Chloride 07-07 (Same as: l 13:: K-Dur 20) [place] 00 "Do Not Crush" Give with food and full glass of water For patients unable to swallow tablet, dissolve in one half glass of water. Allow about 2 minutes for the tablets to disintegra te. Stir before giving to prepare slurry and administer . Please exclude Patient s with feeding tube less than 14 [place] (Dobhoff, J-tube etc) and pediatric and patients. Potassium 2020-0 No Notes: Memori a Chloride 07-07 (Same as: l 13:: K-Dur 20) [place] "Do Not Crush" Give with food and full glass of water For patients unable to swallow tablet, dissolve in one half glass of water. Allow about 2 minutes for the tablets to disintegra te. Stir before giving to prepare slurry and administer . Please exclude Patient s with feeding tube less than 14 [place] (Dobhoff, J-tube etc) and pediatric and patients. Epogen 2020-0 No Notes: Mem07-07 Same as: l 13:08: Retacrit) [place] 00 epoetin franca-epbx 12590 unit/1 ml VL. WASTE: F/P - Red; E Red MEDICATION WASTE Product Size: 00334 unit Product Wasted: ___ unit Epogen 2020-0 No Notes: 07-07 Same as: l 13:08: Retacrit) [place] 00 epoetin franca-epbx 74511 unit/1 ml VL. WASTE: F/P - Red; E Red MEDICATION WASTE Product Size: 75683 unit Product Wasted: ___ unit Epogen 2020-0 No Notes: 07-07 Same as: l 13:08: Retacrit) [place] 00 epoetin franca-epbx 76667 unit/1 ml VL. WASTE: F/P - Red; E Red MEDICATION WASTE Product Size: 94450 unit Product Wasted: ___ unit potassium 2020-0 No Notes: Memori a chloride 07-07 (Same as: l mEq oral 10:45: K-Dur 20) Herm dionne tablet, 00 "Do Not extended Crush" release Give with (KCL) food and full glass of water For patients unable to swallow tablet, dissolve in one half glass of water. Allow about 2 minutes for the tablets to disintegra te. Stir before giving to prepare slurry and administer . Please exclude Patient s with feeding tube less than 14 [place] (Dobhoff, J-tube etc) and pediatric and patients. potassium 2020-0 No Notes: Memori a chloride 07-07 (Same as: l mEq oral 10:45: K-Dur 20) Herm dionne tablet, 00 "Do Not extended Crush" release Give with (KCL) food and full glass of water For patients unable to swallow tablet, dissolve in one half glass of water. Allow about 2 minutes for the tablets to disintegra te. Stir before giving to prepare slurry and administer . Please exclude Patient s with feeding tube less than 14 [place] (Dobhoff, J-tube etc) and pediatric and patients. potassium 2020-0 No Notes: Memori a chloride 20 07-07 (Same as: l mEq oral 10:45: K-Dur 20) Herm dionne tablet, 00 "Do Not extended Crush" release Give with (KCL) food and full glass of water For patients unable to swallow tablet, dissolve in one half glass of water. Allow about 2 minutes for the tablets to disintegra te. Stir before giving to prepare slurry and administer . Please exclude Patient s with feeding tube less than 14 [place] (Dobhoff, J-tube etc) and pediatric and patients. carvedilol 2020-0 No Notes: Memor ia 07-07 Give with l 02:00: food. [place] 00 (Same As: Coreg) tamsulosin 2020-0 No Notes: Memor ia 07-07 (Same As: l 02:00: Flomax) [place] 00 "Do Not Crush" carvedilol 2020-0 No Notes: Memor ia 07-07 Give with l 02:00: food. [place] 00 (Same As: Coreg) tamsulosin 2020-0 No Notes: Memor ia 07-07 (Same As: l 02:00: Flomax) [place] 00 "Do Not Crush" carvedilol 2020-0 No Notes: Memor ia 07-07 Give with l 02:00: food. [place] 00 (Same As: Coreg) tamsulosin 2020-0 No Notes: Memor ia 07-07 (Same As: l 02:00: Flomax) [place] 00 "Do Not Crush" ferric 2020-0 Yes See Memoria citrate 07-06 Instructio l 1000 MG 21:49: ns, 210 PO Herm dionne Oral Tablet 00 TAKE 2 [Auryxia] TABS TID WITH MEALS AND 1 TAB TWIC A DAY WITH SNACKS, 0 Refill(s) ferric 2020-0 Yes See Memoria citrate 07-06 Instructio l 1000 MG 21:49: ns, 210 PO Herm dionne Oral Tablet 00 TAKE 2 [Auryxia] TABS TID WITH MEALS AND 1 TAB TWIC A DAY WITH SNACKS, 0 Refill(s) ferric 2020-0 Yes See Memoria citrate 07-06 Instructio l 1000 MG 21:49: ns, 210 PO Herm dionne Oral Tablet 00 TAKE 2 [Auryxia] TABS TID WITH MEALS AND 1 TAB TWIC A DAY WITH SNACKS, 0 Refill(s) heparin No Notes: Memoria sodium, 07-06 porcine l porcine 21:00: heparin Marlo 2500 UNT/ML 00 Injectable Solution Hydralazine No Notes: Kojo lynn Hydrochlori 07-06 (Same as: l de 25 MG 21:00: Apresoline Her meeks Oral Tablet 00 ) May interfere w/enteral feedings Take With Food heparin No Notes: Memoria sodium, 07-06 porcine l porcine 21:00: heparin [place] 2500 UNT/ML 00 Injectable Solution Hydralazine No Notes: Kojo lynn Hydrochlori 07-06 (Same as: l de 25 MG 21:00: Apresoline Her meeks Oral Tablet 00 ) May interfere w/enteral feedings Take With Food heparin 2019- No Notes: Memoria sodium, 07-06 porcine l porcine 21:00: heparin [place] 2500 UNT/ML 00 Injectable Solution Hydralazine No [...] l MG Oral 18:00: Phoslo Gel Herm dionne Capsule 00 Cap Hydroxyzine No Notes: Kojo lynn Hydrochlori 07-06 (Same as: l de 25 MG 18:00: Atarax) Rafael n Oral Tablet 00 Avoid alcohol. Vancomycin 0 No 2001 mg: Me moria 07-06 infuse l 18:00: over 2.5 [place] 00 hours For adult patients only: Round [...] calcium 2020-0 No Notes: Memoria acetate 667 07-06 Same as l MG Oral 18:00: Phoslo Gel Herm dionne Capsule 00 Cap Hydroxyzine 0 No Notes: Kojo lynn Hydrochlori 07-06 (Same as: l de 25 MG 18:00: Atarax) [place] n Oral Tablet 00 Avoid alcohol. Vancomycin No 2000 mg: Me moria 07-06 [...] calcium 2020-0 No Notes: Memoria acetate 667 07-06 Same as l MG Oral 18:00: Phoslo Gel Herm dionne Capsule 00 Cap Hydroxyzine 0 No Notes: Kojo lynn Hydrochlori 07-06 (Same as: l de 25 MG 18:00: Atarax) [place] n Oral Tablet 00 Avoid alcohol. Vancomycin No 2000 mg: Me moria 07-06 infuse l 18:00: over 2.5 [place] 00 hours For adult patients only: Round to nearest 250 mg per Medical Staff approval MEDICATION WASTE Product Size: 1000 mg Product Wasted: ___ mg acetaminoph 0 No Notes: Do M emoria en-codeine 07-06 not exceed l #3 17:42: 4gm/day of [place] 00 acetaminop hen. (Same as: Tylenol with Codeine # 3) Diazepam No Notes: Memoria 9 (Same as: l 17:42: Valium) [place] acetaminoph No Notes: Do M emoria en-codeine 07-06 not exceed l #3 17:42: 4gm/day of [place] 00 acetaminop hen. (Same as: Tylenol with Codeine # 3) Diazepam No Notes: Memoria 9- (Same as: l 17:42: Valium) [place] acetaminoph No Notes: Do M emoria en-codeine 07-06 not exceed l #3 17:42: 4gm/day of [place] acetaminop hen. (Same as: Tylenol with Codeine # 3) Diazepam No Notes: Memoria 07-06 (Same as: l 17:42: Valium) potassium No Notes: Memori a chloride 07-06 (Same as: l 16:00: Potassium [place] 00 Chloride) potassium No Notes: Memori a chloride - (Same as: l 16:00: Potassium [place] 00 Chloride) potassium No Notes: Memori a chloride - (Same as: l 16:00: Potassium [place] 00 Chloride) Hydromorpho No Notes: Kojo lynn ne 07-06 Same as: l 13:57: Dilaudid Acetaminoph No Notes: Do M emoria en 325 MG / 07-06 not exceed l Hydrocodone 13:57: 4gm/day of [place] Bitartrate 00 acetaminop 10 MG Oral hen. Tablet (Same as: [[place] 10/325] 325/10) Hydromorpho No Notes: Kojo lynn ne 07-06 Same as: l 13:57: Dilaudid [place] Acetaminoph No Notes: Do M emoria en 325 MG / 07-06 not exceed l Hydrocodone 13:57: 4gm/day of [place] Bitartrate 00 acetaminop 10 MG Oral hen. Tablet (Same as: [[place] 10/325] 325/10) Hydromorpho No Notes: Kojo lynn ne 07-06 Same as: l 13:57: Dilaudid [place] 00 Acetaminoph 2020-0 No Notes: Do M emoria en 325 MG / 07-06 not exceed l Hydrocodone 13:57: 4gm/day of [place] Bitartrate 00 acetaminop 10 MG Oral hen. Tablet (Same as: [[place] 10/325] 325/10) Potassium 2020-0 No 60 mEq, [...] ne 07-06 Route: l 12:40: IVP, ONCE, [place] Dosing Weight 105, kg, Priority: STAT, Start date: 07/06/20 7:40:00 CDT, Stop date: 07/06/20 7:40:00 CDT Hydromorpho 2020-0 No 1 mg, Memor ia ne 07-06 Route: l 12:40: IVP, ONCE, [place] Dosing Weight 105, kg, Priority: STAT, Start date: 07/06/20 7:40:00 CDT, Stop date: 07/06/20 7:40:00 CDT Hydromorpho 2020-0 No 1 mg, Memor ia ne 07-06 Route: l 12:40: IVP, ONCE, [place] Dosing Weight 105, kg, Priority: STAT, Start [...] Vancomycin 2020-0 No 2000 mg: Me moria - infuse l 11:04: over 2.5 [place] 00 hours For adult patients only: Round to nearest 250 mg per Medical Staff approval MEDICATION WASTE Product Size: 1000 mg Product Wasted: ___ mg Vancomycin 2020-0 No 2000 mg: Me moria - infuse l 11:04: over 2.5 [place] 00 hours For adult patients only: Round to nearest 250 mg per Medical Staff approval MEDICATION WASTE Product Size: 1000 mg Product Wasted: ___ mg Vancomycin 2020-0 No 2000 mg: Me moria 07-06 infuse l 11:04: over 2.5 [place] 00 hours For adult patients only: Round to nearest 250 mg per Medical Staff approval MEDICATION WASTE Product Size: 1000 mg Product Wasted: ___ mg Morphine 2020-0 No Notes: Memoria - (Same l 10:32: as:MORPhin [place] 00 e Sulfate) Morphine 2020-0 No Notes: Memoria 07-06 (Same l 10:32: as:MORPhin [place] 00 e Sulfate) Morphine 2020-0 No Notes: Memoria - (Same l 10:32: as:MORPhin [place] 00 e Sulfate) vitamin b 2020-0 Yes 1{tbl} Take 1 [facility] complex-vit 9-16 tablet by [facility] of villatoro 02:04: mouth [place] c-folic 11 daily. Medical acid Branch (FAUZIA-CONOR) 0.8 mg tablet zolpidem 10 2020-0 Yes 10mg Take 10 mg [facility] mg tablet 9-16 by mouth ity of 02:04: at bedtime [place] 11 as needed Medical for Branch Insomnia. diazePAM 2020-0 Yes 10mg Take 10 mg [facility] vers (VALIUM) 5 9-16 by mouth 2 ity of mg tablet 02:04: (two) [place] 11 times Medical daily as Branch needed. vitamin b 2020-0 Yes 1{tbl} Take 1 [facility] complex-vit 9-16 tablet by ity of villatoro 02:04: mouth [place] c-folic 11 daily. Medical acid Branch (FAUZIA-CONOR) 0.8 mg tablet zolpidem 10 2020-0 Yes 10mg Take 10 mg [facility] mg tablet 9-16 by mouth ity of 02:04: at bedtime [place] 11 as needed Medical for Branch Insomnia. diazePAM 2020-0 Yes 10mg Take 10 mg [facility] (VALIUM) 5 9-16 by mouth 2 ity of mg tablet 02:04: (two) [place] 11 times Medical daily as Branch needed. vitamin b 2020-0 Yes 1{tbl} Take 1 [facility] complex-vit 9-16 tablet by ity of villatoro 02:04: mouth [place] c-folic 11 daily. Medical acid Branch (FAUZIA-CONOR) 0.8 mg tablet zolpidem 10 2020-0 Yes 10mg Take 10 mg [facility] mg tablet 9-16 by mouth ity of 02:04: at bedtime [place] 11 as needed Medical for Branch Insomnia. diazePAM 2020-0 Yes 10mg Take 10 mg [facility] (VALIUM) 5 9-16 by mouth 2 ity of mg tablet 02:04: (two) [place] 11 times Medical daily as Branch needed. vitamin b 2020-0 Yes 1{tbl} Take 1 [facility] complex-vit 9-16 tablet by ity of villatoro 02:04: mouth [place] c-folic 11 daily. Medical acid Branch (FAUZIA-CONOR) 0.8 mg tablet zolpidem 10 2020-0 Yes 10mg Take 10 mg [facility] mg tablet 9-16 by mouth ity of 02:04: at bedtime [place] 11 as needed Medical for Branch Insomnia. diazePAM 2020-0 Yes 10mg Take 10 mg [facility] (VALIUM) 5 9-16 by mouth 2 ity of mg tablet 02:04: (two) [place] 11 times Medical daily as Branch needed. vitamin b 2020-0 Yes 1{tbl} Take 1 [facility] complex-vit 9-16 tablet by ity of villatoro 02:04: mouth [place] c-folic 11 daily. Medical acid Branch (FAUZIA-CONOR) 0.8 mg tablet zolpidem 10 2020-0 Yes 10mg Take 10 mg [facility] mg tablet 9-16 by mouth ity of 02:04: at bedtime [place] 11 as needed Medical for Branch Insomnia. diazePAM 2020-0 Yes 10mg Take 10 mg [facility] (VALIUM) 5 9-16 by mouth 2 ity of mg tablet 02:04: (two) [place] 11 times Medical daily as Branch needed. vitamin b 2020-0 Yes 1{tbl} Take 1 [facility] complex-vit 9-16 tablet by ity of villatoro 02:04: mouth [place] c-folic 11 daily. Medical acid Branch (FAUZIA-CONOR) 0.8 mg tablet zolpidem 10 2020-0 Yes 10mg Take 10 mg [facility] mg tablet 9-16 by mouth ity of 02:04: at bedtime [place] 11 as needed Medical for Branch Insomnia. diazePAM 2020-0 Yes 10mg Take 10 mg [facility] (VALIUM) 5 9-16 by mouth 2 ity of mg tablet 02:04: (two) [place] 11 times Medical daily as Branch needed. vitamin b 2020-0 Yes 1{tbl} Take 1 [facility] complex-vit 9-16 tablet by ity of villatoro 02:04: mouth [place] c-folic 11 daily. Medical acid Branch (FAUZIA-CONOR) 0.8 mg tablet zolpidem 10 2020-0 Yes 10mg Take 10 mg [facility] mg tablet 9-16 by mouth ity of 02:04: at bedtime [place] 11 as needed Medical for Branch Insomnia. diazePAM 2020-0 Yes 10mg Take 10 mg [facility] (VALIUM) 5 9-16 by mouth 2 ity of mg tablet 02:04: (two) [place] 11 times Medical daily as Branch needed. vitamin b 2020-0 Yes 1{tbl} Take 1 [facility] complex-vit 9-16 tablet by ity of villatoro 02:04: mouth [place] c-folic 11 daily. Medical acid Branch (FAUZIA-CONOR) 0.8 mg tablet zolpidem 10 2020-0 Yes 10mg Take 10 mg [facility] mg tablet 9-16 by mouth ity of 02:04: at bedtime [place] 11 as needed Medical for Branch Insomnia. diazePAM 2020-0 Yes 10mg Take 10 mg [facility] (VALIUM) 5 9-16 by mouth 2 ity of mg tablet 02:04: (two) [place] 11 times Medical daily as Branch needed. vitamin b 2020-0 Yes 1{tbl} Take 1 [facility] complex-vit 9-16 tablet by ity of villatoro 02:04: mouth [place] c-folic 11 daily. Medical acid Branch (FAUZIA-CONOR) 0.8 mg tablet zolpidem 10 2020-0 Yes 10mg Take 10 mg [facility] mg tablet 9-16 by mouth ity of 02:04: at bedtime [place] 11 as needed Medical for Branch Insomnia. diazePAM 2020-0 Yes 10mg Take 10 mg [facility] (VALIUM) 5 9-16 by mouth 2 ity of mg tablet 02:04: (two) [place] 11 times Medical daily as Branch needed. vitamin b 2020-0 Yes 1{tbl} Take 1 [facility] complex-vit 9-16 tablet by ity of villatoro 02:04: mouth [place] c-folic 11 daily. Medical acid Branch (FAUZIA-CONOR) 0.8 mg tablet zolpidem 10 2020-0 Yes 10mg Take 10 mg [facility] mg tablet 9-16 by mouth ity of 02:04: at bedtime [place] 11 as needed Medical for Branch Insomnia. diazePAM 2020-0 Yes 10mg Take 10 mg [facility] (VALIUM) 5 9-16 by mouth 2 ity of mg tablet 02:04: (two) [place] 11 times Medical daily as Branch needed. vitamin b 2020-0 Yes 1{tbl} Take 1 [facility] complex-vit 9-16 tablet by ity of villatoro 02:04: mouth [place] c-folic 11 daily. Medical acid Branch (FAUZIA-CONOR) 0.8 mg tablet zolpidem 10 2020-0 Yes 10mg Take 10 mg [facility] mg tablet 9-16 by mouth ity of 02:04: at bedtime [place] 11 as needed Medical for Branch Insomnia. diazePAM 2020-0 Yes 10mg Take 10 mg [facility] (VALIUM) 5 9-16 by mouth 2 ity of mg tablet 02:04: (two) [place] 11 times Medical daily as Branch needed. vitamin b 2020-0 Yes 1{tbl} Take 1 [facility] complex-vit 9-16 tablet by ity of villatoro 02:04: mouth [place] c-folic 11 daily. Medical acid Branch (FAUZIA-CONOR) 0.8 mg tablet zolpidem 10 2020-0 Yes 10mg Take 10 mg [facility] mg tablet 9-16 by mouth ity of 02:04: at bedtime [place] 11 as needed Medical for Branch Insomnia. diazePAM 2020-0 Yes 10mg Take 10 mg [facility] (VALIUM) 5 9-16 by mouth 2 ity of mg tablet 02:04: (two) [place] 11 times Medical daily as Branch needed. vitamin b 2020-0 Yes 1{tbl} Take 1 [facility] complex-vit 9-16 tablet by ity of villatoro 02:04: mouth [place] c-folic 11 daily. Medical acid Branch (FAUZIA-CONOR) 0.8 mg tablet zolpidem 10 2020-0 Yes 10mg Take 10 mg [facility] mg tablet 9-16 by mouth ity of 02:04: at bedtime [place] 11 as needed Medical for Branch Insomnia. diazePAM 2020-0 Yes 10mg Take 10 mg [facility] (VALIUM) 5 9-16 by mouth 2 ity of mg tablet 02:04: (two) [place] 11 times Medical daily as Branch needed. vitamin b 2020-0 Yes 1{tbl} Take 1 [facility] complex-vit 9-16 tablet by ity of villatoro 02:04: mouth [place] c-folic 11 daily. Medical acid Branch (FAUZIA-CONOR) 0.8 mg tablet zolpidem 10 2020-0 Yes 10mg Take 10 mg [facility] mg tablet 9-16 by mouth ity of 02:04: at bedtime [place] 11 as needed Medical for Branch Insomnia. diazePAM 2020-0 Yes 10mg Take 10 mg [facility] (VALIUM) 5 9-16 by mouth 2 ity of mg tablet 02:04: (two) [place] 11 times Medical daily as Branch needed. vitamin b 2020-0 Yes 1{tbl} Take 1 [facility] ers complex-vit 9-16 tablet by ity of villatoro 02:04: mouth [place] c-folic 11 daily. Medical acid Branch (FAUZIA-CONOR) 0.8 mg tablet zolpidem 10 2020-0 Yes 10mg Take 10 mg [facility] mg tablet 9-16 by mouth ity of 02:04: at bedtime [place] 11 as needed Medical for Branch Insomnia. diazePAM 2020-0 Yes 10mg Take 10 mg [facility] (VALIUM) 5 9-16 by mouth 2 ity of mg tablet 02:04: (two) [place] 11 times Medical daily as Branch needed. vitamin b 2020-0 Yes 1{tbl} Take 1 [facility] complex-vit 9-16 tablet by ity of villatoro 02:04: mouth [place] c-folic 11 daily. Medical acid Branch (FAUZIA-CONOR) 0.8 mg tablet zolpidem 10 2020-0 Yes 10mg Take 10 mg [facility] mg tablet 9-16 by mouth ity of 02:04: at bedtime [place] 11 as needed Medical for Branch Insomnia. diazePAM 2020-0 Yes 10mg Take 10 mg [facility] (VALIUM) 5 9-16 by mouth 2 ity of mg tablet 02:04: (two) [place] 11 times Medical daily as Branch needed. vitamin b 2020-0 Yes 1{tbl} Take 1 [facility] complex-vit 9-16 tablet by ity of villatoro 02:04: mouth [place] c-folic 11 daily. Medical acid Branch (FAUZIA-CONOR) 0.8 mg tablet zolpidem 10 2020-0 Yes 10mg Take 10 mg [facility] mg tablet 9-16 by mouth ity of 02:04: at bedtime [place] 11 as needed Medical for Branch Insomnia. diazePAM 2020-0 Yes 10mg Take 10 mg [facility] (VALIUM) 5 9-16 by mouth 2 ity of mg tablet 02:04: (two) [place] 11 times Medical daily as Branch needed. vitamin b 2020-0 Yes 1{tbl} Take 1 [facility] complex-vit 9-16 tablet by ity of villatoro 02:04: mouth [place] c-folic 11 daily. Medical acid Branch (FAUZIA-CONOR) 0.8 mg tablet zolpidem 10 2020-0 Yes 10mg Take 10 mg [facility] mg tablet 9-16 by mouth ity of 02:04: at bedtime [place] 11 as needed Medical for Branch Insomnia. diazePAM 2020-0 Yes 10mg Take 10 mg [facility] vers (VALIUM) 5 9-16 by mouth 2 ity of mg tablet 02:04: (two) [place] 11 times Medical daily as Branch needed. vitamin b 2020-0 Yes 1{tbl} Take 1 [facility] complex-vit 9-16 tablet by ity of villatoro 02:04: mouth [place] c-folic 11 daily. Medical acid Branch (FAUZIA-CONOR) 0.8 mg tablet zolpidem 10 2020-0 Yes 10mg Take 10 mg [facility] mg tablet 9-16 by mouth ity of 02:04: at bedtime [place] 11 as needed Medical for Branch Insomnia. diazePAM 2020-0 Yes 10mg Take 10 mg [facility] (VALIUM) 5 9-16 by mouth 2 ity of mg tablet 02:04: (two) [place] 11 times Medical daily as Branch needed. vitamin b 2020-0 Yes 1{tbl} Take 1 [facility] complex-vit 9-16 tablet by ity of villatoro 02:04: mouth [place] c-folic 11 daily. Medical acid Branch (FAUZIA-CONOR) 0.8 mg tablet zolpidem 10 2020-0 Yes 10mg Take 10 mg [facility] mg tablet 9-16 by mouth ity of 02:04: at bedtime [place] 11 as needed Medical for Branch Insomnia. diazePAM 2020-0 Yes 10mg Take 10 mg [facility] (VALIUM) 5 9-16 by mouth 2 ity of mg tablet 02:04: (two) [place] 11 times Medical daily as Branch needed. vitamin b 2020-0 Yes 1{tbl} Take 1 [facility] complex-vit 9-16 tablet by ity of villatoro 02:04: mouth [place] c-folic 11 daily. Medical acid Branch (FAUZIA-CONOR) 0.8 mg tablet zolpidem 10 2020-0 Yes 10mg Take 10 mg [facility] mg tablet 9-16 by mouth ity of 02:04: at bedtime [place] 11 as needed Medical for Branch Insomnia. diazePAM 2020-0 Yes 10mg Take 10 mg [facility] vers (VALIUM) 5 9-16 by mouth 2 ity of mg tablet 02:04: (two) [place] 11 times Medical daily as Branch needed. vitamin b 2020-0 Yes 1{tbl} Take 1 [facility] ers complex-vit 9-16 tablet by ity of villatoro 02:04: mouth [place] c-folic 11 daily. Medical acid Branch (FAUZIA-CONOR) 0.8 mg tablet zolpidem 10 2020-0 Yes 10mg Take 10 mg [facility] mg tablet 9-16 by mouth ity of 02:04: at bedtime [place] 11 as needed Medical for Branch Insomnia. diazePAM 2020-0 Yes 10mg Take 10 mg [facility] vers (VALIUM) 5 9-16 by mouth 2 ity of mg tablet 02:04: (two) [place] 11 times Medical daily as Branch needed. hydralAZINE 2020-0 2020- No 50mg Take 50 mg [facility] 50 mg 06-23 by mouth ity of tablet 19:23: 00:00 every 8 [place] 22 :00 (eight) Medical hours. Branch tamsulosin 2020-0 2020- No Take by Un seun 0.4 mg 24 06-23 mouth ity of hr capsule 19:23: 00:00 daily. [place] 22 :00 [facility] furosemide 2019-0 2020- No 80mg Take 80 mg [facility] (LASIX) 80 06-23 by mouth ity of mg tablet 19:23: 00:00 every [place] 22 :00 morning Medical and Branch evening. enalapril 2020-0 2020- No 20mg Take 20 mg [facility] n[facility] 20 mg 06-23 by mouth ity of tablet 19:23: 00:00 daily. [place] 22 :00 Medical Branch ergocalcife 2020-0 Yes [id number] 50,000 Un seun rol -15 Units, ity of (vitamin 14:00: Oral, [place] d2) 00 QWEEKLY, Medical (CALCIFEROL First dose Br anch ) capsule on Tue 50,000 06/23/20 at Units 0900, Until Discontinu ed, Routine lactulose 2020-0 Yes 30mL 30 mL, Univer s (CEPHULAC) 9-15 Oral, ity of solution 30 14:00: DAILY, [place] mL 00 First dose Medical on [facility] 06/23/20 at 0900, Until Discontinu ed, Routine KCL 2020-0 2020- No 40meq 40 mEq, [facility] (KLOR-CON 06-23-15 Oral, ity of M20) tablet 11:15: 10:51 [place]CE, [place] 40 mEq 00 :00 dose, [facility] 06/23/20 at Branch 0615, Routine amLODIPine 2020-0 Yes [id number] 10mg Take 1 U nivers 10 mg 9-15 tablet by ity of tablet 00:00: mouth [place] 00 daily. Medical Branch enalapril 2020-0 Yes [id number] 20mg Take 1 Un seun 20 mg 9-15 tablet by ity of tablet 00:00: mouth [place] 00 daily. Medical Branch hydrALAZINE 2020-0 Yes [id number] 50mg Take 1 [facility] 50 mg 9-15 tablet by ity of tablet 00:00: mouth [place] 00 every 8 Medical (eight) Branch hours. furosemide 2020-0 Yes [id number] 80mg Take 1 U nivers (LASIX) 80 9-15 tablet by ity of mg tablet 00:00: mouth [place] 00 every Medical morning Branch and evening. tamsulosin 2020-0 Yes [id number] .4mg Take 1 U nivers 0.4 mg 24 9-15 capsule by ity of hr capsule 00:00: mouth [place] 00 daily. Medical Branch amLODIPine 2020-0 Yes [id number] 10mg Take 1 U nivers 10 mg 9-15 tablet by ity of tablet 00:00: mouth [place] 00 daily. Medical Branch enalapril 2020-0 Yes [id number] 20mg Take 1 Un seun 20 mg 9-15 tablet by ity of tablet 00:00: mouth [place] 00 daily. Medical Branch hydrALAZINE 2020-0 Yes [id number] 50mg Take 1 [facility] 50 mg 9-15 tablet by ity of tablet 00:00: mouth [place] 00 every 8 Medical (eight) Branch hours. furosemide 2020-0 Yes [id number] 80mg Take 1 U nivers (LASIX) 80 9-15 tablet by ity of mg tablet 00:00: mouth [place] 00 every Medical morning Branch and evening. tamsulosin 2020-0 Yes [id number] .4mg Take 1 U nivers 0.4 mg 24 9-15 capsule by ity of hr capsule 00:00: mouth [place] 00 daily. Medical Branch amLODIPine 2020-0 Yes [id number] 10mg Take 1 U nivers 10 mg 9-15 tablet by ity of tablet 00:00: mouth [place] 00 daily. Medical Branch enalapril 2020-0 Yes [id number] 20mg Take 1 Un seun 20 mg 9-15 tablet by ity of tablet 00:00: mouth [place] 00 daily. Medical Branch hydrALAZINE 2020-0 Yes [id number] 50mg Take 1 [facility] 50 mg 9-15 tablet by ity of tablet 00:00: mouth [place] 00 every 8 Medical (eight) Branch hours. furosemide 2020-0 Yes [id number] 80mg Take 1 U nivers (LASIX) 80 9-15 tablet by ity of mg tablet 00:00: mouth [place] 00 every Medical morning Branch and evening. tamsulosin 2020-0 Yes [id number] .4mg Take 1 U nivers 0.4 mg 24 9-15 capsule by ity of hr capsule 00:00: mouth [place] 00 daily. Medical Branch amLODIPine 2020-0 Yes [id number] 10mg Take 1 U nivers 10 mg 9-15 tablet by ity of tablet 00:00: mouth [place] 00 daily. Medical Branch enalapril 2020-0 Yes [id number] 20mg Take 1 Un seun 20 mg 9-15 tablet by ity of tablet 00:00: mouth [place] 00 daily. Medical Branch hydrALAZINE 2020-0 Yes [id number] 50mg Take 1 [facility] 50 mg 9-15 tablet by ity of tablet 00:00: mouth [place] 00 every 8 Medical (eight) Branch hours. furosemide 2020-0 Yes [id number] 80mg Take 1 U nivers (LASIX) 80 9-15 tablet by ity of mg tablet 00:00: mouth [place] 00 every Medical morning Branch and evening. tamsulosin 2020-0 Yes [id number] .4mg Take 1 U nivers 0.4 mg 24 9-15 capsule by ity of hr capsule 00:00: mouth [place] 00 daily. Medical Branch amLODIPine 2020-0 Yes [id number] 10mg Take 1 U nivers 10 mg 9-15 tablet by ity of tablet 00:00: mouth [place] 00 daily. Medical Branch enalapril 2020-0 Yes [id number] 20mg Take 1 Un seun 20 mg 9-15 tablet by ity of tablet 00:00: mouth [place] 00 daily. Medical Branch hydrALAZINE 2020-0 Yes [id number] 50mg Take 1 [facility] 50 mg 9-15 tablet by ity of tablet 00:00: mouth [place] 00 every 8 Medical (eight) Branch hours. furosemide 2020-0 Yes [id number] 80mg Take 1 U nivers (LASIX) 80 9-15 tablet by ity of mg tablet 00:00: mouth [place] 00 every Medical morning Branch and evening. tamsulosin 2020-0 Yes [id number] .4mg Take 1 U nivers 0.4 mg 24 9-15 capsule by ity of hr capsule 00:00: mouth [place] 00 daily. Medical Branch amLODIPine 2020-0 Yes [id number] 10mg Take 1 U nivers 10 mg 9-15 tablet by ity of tablet 00:00: mouth [place] 00 daily. Medical Branch enalapril 2020-0 Yes [id number] 20mg Take 1 Un seun 20 mg 9-15 tablet by ity of tablet 00:00: mouth [place] 00 daily. Medical Branch hydrALAZINE 2020-0 Yes [id number] 50mg Take 1 [facility] 50 mg 9-15 tablet by ity of tablet 00:00: mouth [place] 00 every 8 Medical (eight) Branch hours. furosemide 2020-0 Yes [id number] 80mg Take 1 U nivers (LASIX) 80 9-15 tablet by ity of mg tablet 00:00: mouth [place] 00 every Medical morning Branch and evening. tamsulosin 2020-0 Yes [id number] .4mg Take 1 U nivers 0.4 mg 24 9-15 capsule by ity of hr capsule 00:00: mouth [place] 00 daily. Medical Branch amLODIPine 2020-0 Yes [id number] 10mg Take 1 U nivers 10 mg 9-15 tablet by ity of tablet 00:00: mouth [place] 00 daily. Medical Branch enalapril 2020-0 Yes [id number] 20mg Take 1 Un seun 20 mg 9-15 tablet by ity of tablet 00:00: mouth [place] 00 daily. Medical Branch hydrALAZINE 2020-0 Yes [id number] 50mg Take 1 [facility] 50 mg 9-15 tablet by ity of tablet 00:00: mouth [place] 00 every 8 Medical (eight) Branch hours. furosemide 2020-0 Yes [id number] 80mg Take 1 U nivers (LASIX) 80 9-15 tablet by ity of mg tablet 00:00: mouth [place] 00 every Medical morning Branch and evening. tamsulosin 2020-0 Yes [id number] .4mg Take 1 U nivers 0.4 mg 24 9-15 capsule by ity of hr capsule 00:00: mouth [place] 00 daily. Medical Branch amLODIPine 2020-0 Yes [id number] 10mg Take 1 U nivers 10 mg 9-15 tablet by ity of tablet 00:00: mouth [place] 00 daily. Medical Branch enalapril 2020-0 Yes [id number] 20mg Take 1 Un seun 20 mg 9-15 tablet by ity of tablet 00:00: mouth [place] 00 daily. Medical Branch hydrALAZINE 2020-0 Yes [id number] 50mg Take 1 [facility] 50 mg 9-15 tablet by ity of tablet 00:00: mouth [place] 00 every 8 Medical (eight) Branch hours. furosemide 2020-0 Yes [id number] 80mg Take 1 U nivers (LASIX) 80 9-15 tablet by ity of mg tablet 00:00: mouth [place] 00 every Medical morning Branch and evening. tamsulosin 2020-0 Yes [id number] .4mg Take 1 U nivers 0.4 mg 24 9-15 capsule by ity of hr capsule 00:00: mouth [place] 00 daily. Medical Branch amLODIPine 2020-0 Yes [id number] 10mg Take 1 U nivers 10 mg 9-15 tablet by ity of tablet 00:00: mouth [place] 00 daily. Medical Branch enalapril 2020-0 Yes [id number] 20mg Take 1 Un seun 20 mg 9-15 tablet by ity of tablet 00:00: mouth [place] 00 daily. Medical Branch hydrALAZINE 2020-0 Yes [id number] 50mg Take 1 [facility] 50 mg 9-15 tablet by ity of tablet 00:00: mouth [place] 00 every 8 Medical (eight) Branch hours. furosemide 2020-0 Yes [id number] 80mg Take 1 U nivers (LASIX) 80 9-15 tablet by ity of mg tablet 00:00: mouth [place] 00 every Medical morning Branch and evening. tamsulosin 2020-0 Yes [id number] .4mg Take 1 U nivers 0.4 mg 24 9-15 capsule by ity of hr capsule 00:00: mouth [place] 00 daily. Medical Branch amLODIPine 2020-0 Yes [id number] 10mg Take 1 U nivers 10 mg 9-15 tablet by ity of tablet 00:00: mouth [place] 00 daily. Medical Branch enalapril 2020-0 Yes [id number] 20mg Take 1 Un seun 20 mg 9-15 tablet by ity of tablet 00:00: mouth [place] 00 daily. Medical Branch hydrALAZINE 2020-0 Yes [id number] 50mg Take 1 [facility] 50 mg 9-15 tablet by ity of tablet 00:00: mouth [place] 00 every 8 Medical (eight) Branch hours. furosemide 2020-0 Yes [id number] 80mg Take 1 U nivers (LASIX) 80 9-15 tablet by ity of mg tablet 00:00: mouth [place] 00 every Medical morning Branch and evening. tamsulosin 2020-0 Yes [id number] .4mg Take 1 U nivers 0.4 mg 24 9-15 capsule by ity of hr capsule 00:00: mouth [place] 00 daily. Medical Branch amLODIPine 2020-0 Yes [id number] 10mg Take 1 U nivers 10 mg 9-15 tablet by ity of tablet 00:00: mouth [place] 00 daily. Medical Branch enalapril 2020-0 Yes [id number] 20mg Take 1 Un seun 20 mg 9-15 tablet by ity of tablet 00:00: mouth [place] 00 daily. Medical Branch hydrALAZINE 2020-0 Yes [id number] 50mg Take 1 [facility] 50 mg 9-15 tablet by ity of tablet 00:00: mouth [place] 00 every 8 Medical (eight) Branch hours. furosemide 2020-0 Yes [id number] 80mg Take 1 U nivers (LASIX) 80 9-15 tablet by ity of mg tablet 00:00: mouth [place] 00 every Medical morning Branch and evening. tamsulosin 2020-0 Yes [id number] .4mg Take 1 U nivers 0.4 mg 24 9-15 capsule by ity of hr capsule 00:00: mouth [place] 00 daily. Medical Branch amLODIPine 2020-0 Yes [id number] 10mg Take 1 U nivers 10 mg 9-15 tablet by ity of tablet 00:00: mouth [place] 00 daily. Medical Branch enalapril 2020-0 Yes [id number] 20mg Take 1 Un seun 20 mg 9-15 tablet by ity of tablet 00:00: mouth [place] 00 daily. [facility] hydrALAZINE 2020-0 Yes [id number] 50mg Take 1 [facility] 50 mg 9-15 tablet by ity of tablet 00:00: mouth [place] 00 every 8 Medical (eight) Branch hours. furosemide 2020-0 Yes [id number] 80mg Take 1 U nivers (LASIX) 80 9-15 tablet by ity of mg tablet 00:00: mouth [place] 00 every Medical morning Branch and evening. tamsulosin 2020-0 Yes [id number] .4mg Take 1 U nivers 0.4 mg 24 9-15 capsule by ity of hr capsule 00:00: mouth [place] 00 daily. Medical Branch amLODIPine 2020-0 Yes [id number] 10mg Take 1 [facility] 10 mg 9-15 tablet by ity of tablet 00:00: mouth [place] 00 daily. [facility] enalapril 2020-0 Yes [id number] 20mg Take 1 Un seun 20 mg 9-15 tablet by ity of tablet 00:00: mouth [place] 00 daily. [facility] hydrALAZINE 2020-0 Yes [id number] 50mg Take 1 [facility] 50 mg 9-15 tablet by ity of tablet 00:00: mouth [place] 00 every 8 Medical (eight) Branch hours. furosemide 2020-0 Yes [id number] 80mg Take 1 U nivers (LASIX) 80 9-15 tablet by ity of mg tablet 00:00: mouth [place] 00 every Medical morning Branch and evening. tamsulosin 2020-0 Yes [id number] .4mg Take 1 [facility] nivers 0.4 mg 24 9-15 capsule by ity of hr capsule 00:00: mouth [place] 00 daily. Medical Branch amLODIPine 2020-0 Yes [id number] 10mg Take 1 [facility]ivers 10 mg 9-15 tablet by ity of tablet 00:00: mouth [place] 00 daily. [facility] enalapril 2020-0 Yes [id number] 20mg Take 1 Un seun 20 mg 9-15 tablet by ity of tablet 00:00: mouth [place] 00 daily. Medical [facility] hydrALAZINE 2020-0 Yes [id number] 50mg Take 1 [facility] 50 mg 9-15 tablet by ity of tablet 00:00: mouth [place] 00 every 8 Medical (eight) Branch hours. furosemide 2020-0 Yes [id number] 80mg Take 1 [facility] nivers (LASIX) 80 9-15 tablet by ity of mg tablet 00:00: mouth [place] 00 every Medical morning Branch and evening. tamsulosin 2020-0 Yes [id number] .4mg Take 1 [facility] nivers 0.4 mg 24 9-15 capsule by ity of hr capsule 00:00: mouth [place] 00 daily. Medical Branch amLODIPine 2020-0 Yes [id number] 10mg Take 1 [facility] 10 mg 9-15 tablet by ity of tablet 00:00: mouth [place] 00 daily. [facility] enalapril 2020-0 Yes [id number] 20mg Take 1 Un seun 20 mg 9-15 tablet by ity of tablet 00:00: mouth [place] 00 daily. Medical [facility] hydrALAZINE 2020-0 Yes [id number] 50mg Take 1 [facility] 50 mg 9-15 tablet by ity of tablet 00:00: mouth [place] 00 every 8 Medical (eight) Branch hours. furosemide 2020-0 Yes [id number] 80mg Take 1 [facility]ivers (LASIX) 80 9-15 tablet by ity of mg tablet 00:00: mouth [place] 00 every Medical morning Branch and evening. tamsulosin 2020-0 Yes [id number] .4mg Take 1 [facility]ivers 0.4 mg 24 9-15 capsule by ity of hr capsule 00:00: mouth [place] 00 daily. Medical Branch amLODIPine 2020-0 Yes [id number] 10mg Take 1 [facility] 10 mg 9-15 tablet by ity of tablet 00:00: mouth [place] 00 daily. [facility] enalapril 2020-0 Yes [id number] 20mg Take 1 Un seun 20 mg 9-15 tablet by ity of tablet 00:00: mouth [place] 00 daily. Medical [facility] hydrALAZINE 2020-0 Yes [id number] 50mg Take 1 [facility] 50 mg 9-15 tablet by ity of tablet 00:00: mouth [place] 00 every 8 Medical (eight) Branch hours. furosemide 2020-0 Yes [id number] 80mg Take 1 [facility] nivers (LASIX) 80 9-15 tablet by ity of mg tablet 00:00: mouth [place] 00 every Medical morning Branch and evening. tamsulosin 2020-0 Yes [id number] .4mg Take 1 [facility]ivers 0.4 mg 24 9-15 capsule by ity of hr capsule 00:00: mouth [place] 00 daily. Medical Branch amLODIPine 2020-0 Yes [id number] 10mg Take 1 [facility] 10 mg 9-15 tablet by ity of tablet 00:00: mouth [place] 00 daily. [facility] Branch enalapril 2020-0 Yes [id number] 20mg Take 1 Un seun 20 mg 9-15 tablet by ity of tablet 00:00: mouth [place] 00 daily. Medical Branch hydrALAZINE 2020-0 Yes [id number] 50mg Take 1 [facility] 50 mg 9-15 tablet by ity of tablet 00:00: mouth [place] 00 every 8 Medical (eight) Branch hours. furosemide 2020-0 Yes [id number] 80mg Take 1 [facility] (LASIX) 80 9-15 tablet by ity of mg tablet 00:00: mouth [place] 00 every Medical morning Branch and evening. tamsulosin 2020-0 Yes [id number] .4mg Take 1 [facility] 0.4 mg 24 9-15 capsule by ity of hr capsule 00:00: mouth [place] 00 daily. Medical Branch amLODIPine 2020-0 Yes [id number] 10mg Take 1 [facility] 10 mg 9-15 tablet by ity of tablet 00:00: mouth [place] 00 daily. [facility] enalapril 2020-0 Yes [id number] 20mg Take 1 Un seun 20 mg 9-15 tablet by ity of tablet 00:00: mouth [place] 00 daily. [facility] hydrALAZINE 2020-0 Yes [id number] 50mg Take 1 [facility] 50 mg 9-15 tablet by ity of tablet 00:00: mouth [place] 00 every 8 Medical (eight) Branch hours. furosemide 2020-0 Yes [id number] 80mg Take 1 [facility]ivers (LASIX) 80 9-15 tablet by ity of mg tablet 00:00: mouth [place] 00 every Medical morning Branch and evening. tamsulosin 2020-0 Yes [id number] .4mg Take 1 [facility] nivers 0.4 mg 24 9-15 capsule by ity of hr capsule 00:00: mouth [place] 00 daily. Medical Branch amLODIPine 2020-0 Yes [id number] 10mg Take 1 [facility] 10 mg 9-15 tablet by ity of tablet 00:00: mouth [place] 00 daily. Medical Branch enalapril 2020-0 Yes [id number] 20mg Take 1 Un seun 20 mg 9-15 tablet by ity of tablet 00:00: mouth [place] 00 daily. Medical Branch hydrALAZINE 2020-0 Yes [id number] 50mg Take 1 [facility] 50 mg 9-15 tablet by ity of tablet 00:00: mouth [place] 00 every 8 Medical (eight) Branch hours. furosemide 2020-0 Yes [id number] 80mg Take 1 [facility] (LASIX) 80 9-15 tablet by ity of mg tablet 00:00: mouth [place] 00 every Medical morning Branch and evening. tamsulosin 2020-0 Yes [id number] .4mg Take 1 [facility] 0.4 mg 24 9-15 capsule by ity of hr capsule 00:00: mouth [place] 00 daily. Medical Branch amLODIPine 2020-0 Yes [id number] 10mg Take 1 [facility] 10 mg 9-15 tablet by ity of tablet 00:00: mouth [place] 00 daily. [facility] Branch enalapril 2020-0 Yes [id number] 20mg Take 1 [facility] se[facility] 20 mg 9-15 tablet by ity of tablet 00:00: mouth [place] 00 daily. [facility] hydrALAZINE 2020-0 Yes [id number] 50mg Take 1 [facility] 50 mg 9-15 tablet by ity of tablet 00:00: mouth [place] 00 every 8 Medical (eight) Branch hours. furosemide 2020-0 Yes [id number] 80mg Take 1 [facility] (LASIX) 80 9-15 tablet by ity of mg tablet 00:00: mouth [place] 00 every Medical morning Branch and evening. tamsulosin 2020-0 Yes [id number] .4mg Take 1 [facility] 0.4 mg 24 9-15 capsule by ity of hr capsule 00:00: mouth [place] 00 daily. Medical Branch amLODIPine 2020-0 Yes [id number] 10mg Take 1 [facility] 10 mg 9-15 tablet by ity of tablet 00:00: mouth [place] 00 daily. [facility] Branch enalapril 2020-0 Yes [id number] 20mg Take 1 Un se[facility] 20 mg 9-15 tablet by ity of tablet 00:00: mouth [place] 00 daily. Medical Branch hydrALAZINE 2020-0 Yes [id number] 50mg Take 1 [facility] 50 mg 9-15 tablet by ity of tablet 00:00: mouth [place] 00 every 8 Medical (eight) Branch hours. furosemide 2020-0 Yes [id number] 80mg Take 1 [facility] (LASIX) 80 9-15 tablet by ity of mg tablet 00:00: mouth [place] 00 every Medical morning Branch and evening. tamsulosin 2020-0 Yes [id number] .4mg Take 1 [facility] 0.4 mg 24 9-15 capsule by ity of hr capsule 00:00: mouth [place] 00 daily. Medical Branch amLODIPine 2020-0 Yes [id number] 10mg Take 1 [facility] 10 mg 9-15 tablet by ity of tablet 00:00: mouth [place] 00 daily. Medical Branch enalapril 2020-0 Yes [id number] 20mg Take 1 Un se[facility] 20 mg 9-15 tablet by ity of tablet 00:00: mouth [place] 00 daily. Medical Branch hydrALAZINE 2020-0 Yes [id number] 50mg Take 1 [facility] 50 mg 9-15 tablet by ity of tablet 00:00: mouth [place] 00 every 8 Medical (eight) Branch hours. furosemide 2020-0 Yes [id number] 80mg Take 1 [facility] nivers (LASIX) 80 9-15 tablet by ity of mg tablet 00:00: mouth [place] 00 every Medical morning Branch and evening. tamsulosin 2020-0 Yes [id number] .4mg Take 1 [facility] 0.4 mg 24 9-15 capsule by ity of hr capsule 00:00: mouth [place] 00 daily. Medical Branch furosemide 2020-0 Yes [id number] 80mg Take 1 [facility] n[facility] (LASIX) 80 9-15 tablet by ity of mg tablet 00:00: mouth [place] 00 every Medical morning Branch and evening. tamsulosin 2020-0 Yes [id number] .4mg Take 1 [facility]ivers 0.4 mg 24 9-15 capsule by ity of hr capsule 00:00: mouth [place] 00 daily. Medical Branch furosemide 2020-0 Yes [id number] 80mg Take 1 [facility] nivers (LASIX) 80 9-15 tablet by ity of mg tablet 00:00: mouth [place] 00 every Medical morning Branch and evening. tamsulosin 2020-0 Yes [id number] .4mg Take 1 U nivers 0.4 mg 24 9-15 capsule by ity of hr capsule 00:00: mouth [place] 00 daily. Medical Branch furosemide 2020-0 Yes [id number] 80mg Take 1 [facility] nivers (LASIX) 80 9-15 tablet by ity of mg tablet 00:00: mouth [place] 00 every Medical morning Branch and evening. tamsulosin 2020-0 Yes [id number] .4mg Take 1 U nivers 0.4 mg 24 9-15 capsule by ity of hr capsule 00:00: mouth [place] 00 daily. Medical Branch furosemide 2020-0 Yes [id number] 80mg Take 1 [facility] nivers (LASIX) 80 9-15 tablet by ity of mg tablet 00:00: mouth [place] 00 every Medical morning Branch and evening. tamsulosin 2020-0 Yes [id number] .4mg Take 1 U nivers 0.4 mg 24 9-15 capsule by ity of hr capsule 00:00: mouth [place] 00 daily. Medical Branch furosemide 2020-0 Yes [id number] 80mg Take 1 [facility] nivers (LASIX) 80 9-15 tablet by ity of mg tablet 00:00: mouth [place] 00 every Medical morning Branch and evening. tamsulosin 2020-0 Yes [id number] .4mg Take 1 [facility] nivers 0.4 mg 24 9-15 capsule by ity of hr capsule 00:00: mouth [place] 00 daily. Medical Branch furosemide 2020-0 Yes [id number] 80mg Take 1 [facility] nivers (LASIX) 80 9-15 tablet by ity of mg tablet 00:00: mouth [place] 00 every Medical morning Branch and evening. tamsulosin 2020-0 Yes [id number] .4mg Take 1 U nivers 0.4 mg 24 9-15 capsule by ity of hr capsule 00:00: mouth [place] 00 daily. Medical Branch furosemide 2020-0 Yes [id number] 80mg Take 1 [facility] nivers (LASIX) 80 9-15 tablet by ity of mg tablet 00:00: mouth [place] 00 every Medical morning Branch and evening. tamsulosin 2020-0 Yes [id number] .4mg Take 1 U nivers 0.4 mg 24 9-15 capsule by ity of hr capsule 00:00: mouth [place] 00 daily. Medical Branch furosemide 2020-0 Yes [id number] 80mg Take 1 U n[facility] (LASIX) 80 9-15 tablet by ity of mg tablet 00:00: mouth [place] 00 every Medical morning Branch and evening. tamsulosin 2020-0 Yes [id number] .4mg Take 1 U nivers 0.4 mg 24 9-15 capsule by ity of hr capsule 00:00: mouth [place] 00 daily. Medical Branch furosemide 2020-0 Yes [id number] 80mg Take 1 U nivers (LASIX) 80 9-15 tablet by ity of mg tablet 00:00: mouth [place] 00 every Medical morning Branch and evening. tamsulosin 2020-0 Yes [id number] .4mg Take 1 U nivers 0.4 mg 24 9-15 capsule by ity of hr capsule 00:00: mouth [place] 00 daily. Medical Branch furosemide 2019- Yes [id number] 80mg Take 1 U nivers (LASIX) 80 9-15 tablet by ity of mg tablet 00:00: mouth [place] 00 every Medical morning Branch and evening. tamsulosin Yes [id number] .4mg Take 1 U nivers 0.4 mg 24 9-15 capsule by ity of hr capsule 00:00: mouth [place] 00 daily. Medical Branch amLODIPine 2020- No [id number] 10mg Take 1 [facility] 10 mg 9-15 07-15 tablet by ity of tablet 00:00: 00:00 mouth [place] 00 :00 daily. Medical Branch enalapril 2020- No [id number] 20mg Take 1 U nivers 20 mg 9-15 07-15 tablet by ity of tablet 00:00: 00:00 mouth [place] 00 :00 daily. Medical Branch hydrALAZINE 2020- No [id number] 50mg Take 1 [facility] 50 mg 9-15 07-15 tablet by ity of tablet 00:00: 00:00 mouth [place] 00 :00 every 8 Medical (eight) Branch hours. amLODIPine 2020- No [id number] 10mg Take 1 [facility] 10 mg 9-15 07-15 tablet by ity of tablet 00:00: 00:00 mouth [place] 00 :00 daily. Medical Branch enalapril 2020- No [id number] 20mg Take 1 U nivers 20 mg 9-15 07-15 tablet by ity of tablet 00:00: 00:00 mouth [place] 00 :00 daily. Medical Branch hydrALAZINE 2020- No [id number] 50mg Take 1 [facility] 50 mg 9-15 07-15 tablet by ity of tablet 00:00: 00:00 mouth [place] 00 :00 every 8 Medical (eight) Branch hours. amLODIPine 2020- No [id number] 10mg Take 1 [facility] 10 mg 9-15 07-15 tablet by ity of tablet 00:00: 00:00 mouth [place] 00 :00 daily. Medical Branch enalapril 2020- No [id number] 20mg Take 1 U nivers 20 mg 9-15 07-15 tablet by ity of tablet 00:00: 00:00 mouth [place] 00 :00 daily. Medical Branch hydrALAZINE 2019-0 2020- No [id number] 50mg Take 1 [facility] 50 mg 06-23 tablet by ity of tablet 00:00: 00:00 mouth [place] 00 :00 every 8 Medical (eight) Branch hours. perflutren 2019-0 2020- No 3mL 3 mL, IV Un seun protein-A 06-22 Push, ity of microsphr 20:00: 17:45 ONCE, [place] (OPTISON[place] 00 :00 dose, Mon Medic al injection 3 06/22/20 at Br anch mL 1500, Routine acetaminoph 2020-0 Yes 1{tbl} 1 tablet, Univers en-codeine 06-22 Oral, QID, ity of (TYLENOL 17:00: First dose [place] #4) 300-60 00 on Mon Medical mg tablet 1 06/22/20 at Br anch tablet 1200, Until Discontinu ed, Routine glycerin/mi 2020-0 2020- No 225mL 225 mL, U nivers neral oil 06-22 Rectal, ity of (AGLO 16:38: 20:14 ONCE, 1 [place] ENEMA) 00 :00 dose, [facility] Medical (COMPOUNDED 06/22/20 at Br anch ) Enem 225 1145, mL Routine gentamicin 2020-0 Yes Topical, Uni vers 0.1 % cream 06-22 DAILY, ity of 14:00: First dose [place] 00 on [facility] 06/22/20 at Branch 0900, Until Discontinu ed, Routine zolpidem 2020-0 Yes 5mg 5 mg, Univers (AMBIEN) 06-22 Oral, ity of tablet 5 mg 06:19: QHSPRN, [place] 53 Starting [facility] 06/22/20 at 0119, Until Discontinu ed, Routine, Insomnia acetaminoph 2020-0 2020- No .5{tbl} 0.5 Un seun en-codeine 06-21 tablet, ity o f (TYLENOL 18:25: 19:43 Oral, [place] #4) 300-60 00 :00 ONCE, 1 Medica l mg tablet dose, [place] [facility] 0.5 tablet 06/21/20 at 1330, Routine hydrOXYzine 2020-0 Yes 10mg 10 mg, Univ ers (ATARAX) - Oral, ity of tablet 10 15:10: Q8HPRN, [place] mg 32 Starting Medical [facility] 06/21/20 at 1010, Until Discontinu ed, Routine, Itching, Anxiety sennosides 2020-0 Yes 8.6mg 8.6 mg, Uni vers (SENOKOT) 9- Oral, ity of tablet 8.6 14:00: DAILY, [place] mg 00 First dose Medical on [facility] 06/21/20 at 0900, Until Discontinu ed, Routine tamsulosin 2020-0 Yes .4mg 0.4 mg, Univ ers (FLOMAX) - Oral, ity of capsule 0.4 14:00: DAILY, [place] 00 First dose Medical on [facility] 06/21/20 at 0900, Until Discontinu ed, Routine furosemide 2020-0 Yes 80mg 80 mg, Unive rs (LASIX) - Oral, ity of tablet 80 14:00: QAM+PM, [place] mg 00 First dose Medical on [facility] 06/21/20 at 0900, Until Discontinu ed, Routine enalapril 2020-0 Yes 20mg 20 mg, Univer s (VASOTEC) 06-21 Oral, ity of tablet 20 14:00: DAILY, [place] mg 00 First dose Medical on [facility] 06/21/20 at 0900, Until Discontinu ed, Routine amLODIPine 2020-0 Yes 10mg 10 mg, Unive rs (NORVASC) - Oral, ity of tablet 10 14:00: DAILY, [place] mg 00 First dose Medical on [facility] 06/21/20 at 0900, Until Discontinu ed, Routine morpHINE 2020-0 2020- No 2mg 2 mg, Slow Un seun injection 2 06-21 IV Push, ity of mg 13:15: 14:26 ONCE, 1 [place] 00 :00 dose, [facility] 06/21/20 at Branch 0815, Routine heparin 2020-0 Yes 5000U 5,000 [facility] (porcine) 06-21 Units, ity of injection 13:00: [place] 5,000 Units 00 us, Q12H, Med ical First dose Branch on [place] 06/21/20 at 0800, Until Discontinu ed, Routine calcium 2020-0 Yes 1334mg 1,334 mg, Uni vers acetate(sherry - Oral, TID ity of sphat bind) 13:00: MEALS, [place] (PHOSLO) 00 First dose Medic al capsule on [facility] 1,334 mg 06/21/20 at 0800, Until Discontinu ed, Routine Polyethylen 2020-0 Yes 17g 17 g, Unive rs e Glycol - Oral, BID, ity o f 3350 12:30: First dose [place] (MIRALAX) 00 on [facility] powder 17 g 06/21/20 at Br anch 0730, Until Discontinu ed, Routine KCL 2020-0 2020- No 40meq 40 mEq, Univers (KLOR-CON 06-21 Oral, ity of M20) tablet 12:00: 14:25 ONCE, 1 [place] 40 mEq 00 :00 dose, [facility] 06/21/20 at Branch 0700, Routine hydrALAZINE 2020-0 Yes 50mg 50 mg, Univ ers (APRESOLINE 06-21 Oral, Q8H, it y of ) tablet 50 11:00: First dose [place] mg 00 on [facility] 06/21/20 at Branch 0600, Until Discontinu ed, Routine acetaminoph 2020-0 Yes 650mg 650 mg, Un seun en 06-21 Oral, ity of (TYLENOL) 06:39: Q6HPRN, [place] tablet 650 09 Starting Medic al mg [facility] 06/21/20 at 0139, Until Discontinu ed, Routine, Pain (scale 1-3) diazePAM 2020-0 Yes 10mg 10 mg, Univers (VALIUM) 06-21 Oral, ity of tablet 10 06:37: BIDPRN, [place] mg 24 Starting Medical [facility] 06/21/20 at 0137, Until Discontinu ed, Routine, Anxiety hydrOXYzine 2020-0 2020- No 12.5mg 12.5 mg, Univers (ATARAX) 06-21 Oral, ity of tablet 12.5 05:15: 04:44 ONCE, 1 [place] mg 00 :00 dose, [facility] 06/21/20 at Branch 0015, [place] morpHINE 2020-0 2020- No 2mg 2 mg, Slow Un seun injection 2 06-21 IV Push, ity of mg 03:45: 03:44 ONCE, 1 [place] 00 :00 dose, Sat Medical 06/20/20 at Branch 2245, Routine hydrOXYzine 2019-0 2020- No 25mg 25 mg, Uni vers (ATARAX) 06-20 Oral, ity of tablet 25 23:15: 22:31 ONCE, [place] mg 00 :00 dose, [facility] 06/20/20 at Branch 1815, [place] HYDROcodone 2020-0 2020- No 1{tbl} 1 tablet, Univers -acetaminop 06-20 Oral, ity of hen (NORCO) 23:15: 22:31 ONCE, [place] 10-325 mg 00 :00 dose, Sat Medic al tablet 1 06/20/20 at [facility] tablet 1815, Routine ondansetron 2019-0 2020- No 4mg 4 mg, Slow Univers (ZOFRAN 06-20 IV Push, ity of (PF)) 22:15: 21:23 ONCE, 1 [place] injection 4 00 :00 dose, Sat Med ical mg 06/20/20 at Branch 1715, [place]ISON morpHINE 2019-0 2020- No 4mg 4 mg, Slow Un seun injection 4 06-20 IV Push, ity of mg 22:15: 21:23 ONCE, 1 [place] 00 :00 dose, [facility] 06/20/20 at Branch 1715, STAT KCL 2019-0 2020- No 40meq 40 mEq, Univers (KLOR-CON 06-20 Oral, ity of M20) tablet 22:15: 21:23 ONCE, 1 [place] 40 mEq 00 :00 dose, [facility] 06/20/20 at Branch 1715, ALLISON aspirin 2020-0 2020- No 324mg 324 mg, Unive rs chewable 06-20 Oral, ity of tablet 324 21:45: 20:42 ONCE, 1 [place] mg 00 :00 dose, [facility] 06/20/20 at Branch 1645, Routine nitroglycer 2020-0 2020- No .5[in_u 0.5 Inch, Univers in (NITROL) 06-20 s] Transderma i ty of 2 % 21:45: 20:41 l (Apply [place] ointment 00 :00 To Skin), Medica l 0.5 Inch ONCE, 1 [place] dose, 06/20/20 at 1645, ALLISON peg-electro 2020-0 2020- No Take as Un seun villaseñor 06-16 directed ity o f 236-22.74-6 00:00: 00:00 before [place] .74 -5.86 00 :00 colonoscop Medi sony gram y Branch solution Acetaminoph 2019-0 No Notes: Do M [place] en 300 MG / 8-13 not exceed l Codeine 14:43: 4gm/day of [place] dionne Phosphate 00 acetaminop 30 MG Oral hen. Tablet (Same as: [Tylenol Tylenol with with Codeine #3] Codeine # 3) Acetaminoph 2020-0 No Notes: Do M [place] en 300 MG / 8-13 not exceed l Codeine 14:43: 4gm/day of [place] dionne Phosphate 00 acetaminop 30 MG Oral hen. Tablet (Same as: [Tylenol Tylenol with with Codeine #3] Codeine # 3) Acetaminoph 2019-0 No Notes: Do M [place] en 300 MG / 8-13 not exceed l Codeine 14:43: 4gm/day of [place] dionne Phosphate 00 acetaminop 30 MG Oral hen. [...] Dissolve l 13:33: in 8 oz of [place] 00 water or juice. (Same as: Miralax) Miralax 2020-0 No Notes: Memoria 8-13 Dissolve l 13:33: in 8 oz of [place] 00 water or juice. (Same as: Miralax) iohexol 2020-0 2020- No 150mL 150 mL, Unive rs (OMNIPAQUE 04-28 Intravenou it y of 350 17:45: 17:08 s, ONCE, 1 [place] BULK-150 00 :00 dose, Tue Medica l mL) 04/28/20 at Branch injection 1245, 150 mL Routine peg-electro 2020-0 Yes [id number] Take as [facility] lyte soln 04-28 directed ity of 236-22.74-6 00:00: before [place] .74 -5.86 00 colonoscop Medi sony gram y Branch solution peg-electro 2020-0 Yes [id number] Take as [facility] lyte soln - directed ity of 236-22.74-6 00:00: before [place] .74 -5.86 00 colonoscop Medi sony gram y Branch solution peg-electro 2020-0 Yes [id number] Take as [facility] lyte soln - directed ity of 236-22.74-6 00:00: before [place] .74 -5.86 00 colonoscop Medi sony gram y Branch solution peg-electro 2020-0 Yes [id number] Take as [facility] lyte soln - directed ity of 236-22.74-6 00:00: before [place] .74 -5.86 00 colonoscop Medi sony gram y Branch solution peg-electro 2020-0 2020- No [id number] Take as [facility] lyte soln -06-21 directed ity o f 236-22.74-6 00:00: 00:00 before [place] .74 -5.86 00 :00 colonoscop Medi sony gram y Branch solution pantoprazol 2020-0 Yes 40mg 40 mg, Univ ers e 03-31 Oral, ity of (PROTONIX) 14:00: DAILY, [place] EC tablet 00 First dose Medi sony 40 mg on Tue Branch 03/31/20 at 0900, Until Discontinu ed, Routine amLODIPine 2020-0 Yes [id number] 10mg Take 1 U nivers 10 mg 6-23 tablet by ity of tablet 00:00: mouth [place] 00 daily. Medical Branch pantoprazol 2020-0 Yes [id number] 40mg Take 1 Univers e 40 mg EC 6-23 tablet by ity of tablet 00:00: mouth [place] 00 daily. Medical Branch amLODIPine 2020-0 Yes [id number] 10mg Take 1 U nivers 10 mg 6-23 tablet by ity of tablet 00:00: mouth [place] 00 daily. Medical Branch pantoprazol 2020-0 Yes [id number] 40mg Take 1 Univers e 40 mg EC 6-23 tablet by ity of tablet 00:00: mouth [place] 00 daily. Medical Branch amLODIPine 2019-0 Yes [id number] 10mg Take 1 U nivers 10 mg 6-23 tablet by ity of tablet 00:00: mouth [place] 00 daily. Medical Branch pantoprazol 2020-0 Yes [id number] 40mg Take 1 Univers e 40 mg EC 6-23 tablet by ity of tablet 00:00: mouth [place] 00 daily. Medical Branch amLODIPine 2019-0 Yes [id number] 10mg Take 1 U nivers 10 mg 6-23 tablet by ity of tablet 00:00: mouth [place] 00 daily. Medical Branch pantoprazol 2020-0 Yes [id number] 40mg Take 1 Univers e 40 mg EC 6-23 tablet by ity of tablet 00:00: mouth [place] 00 daily. Medical Branch amLODIPine 2020-0 Yes [id number] 10mg Take 1 U nivers 10 mg 6-23 tablet by ity of tablet 00:00: mouth [place] 00 daily. Medical Branch pantoprazol 2020-0 Yes [id number] 40mg Take 1 Univers e 40 mg EC 6-23 tablet by ity of tablet 00:00: mouth [place] 00 daily. Medical Branch amLODIPine 2020-0 Yes [id number] 10mg Take 1 U nivers 10 mg 6-23 tablet by ity of tablet 00:00: mouth [place] 00 daily. [facility] Branch pantoprazol 2020-0 Yes [id number] 40mg Take 1 Univers e 40 mg EC 6-23 tablet by ity of tablet 00:00: mouth [place] 00 daily. [facility] Branch amLODIPine 2020-0 Yes [id number] 10mg Take 1 U nivers 10 mg 6-23 tablet by ity of tablet 00:00: mouth [place] 00 daily. Medical Branch pantoprazol 2020-0 Yes [id number] 40mg Take 1 Univers e 40 mg EC 6-23 tablet by ity of tablet 00:00: mouth [place] 00 daily. Medical Branch amLODIPine 2020-0 Yes [id number] 10mg Take 1 U nivers 10 mg 6-23 tablet by ity of tablet 00:00: mouth [place] 00 daily. Medical Branch pantoprazol 2020-0 Yes [id number] 40mg Take 1 Univers e 40 mg EC 6-23 tablet by ity of tablet 00:00: mouth [place] 00 daily. Medical Branch amLODIPine 2020-0 Yes [id number] 10mg Take 1 U nivers 10 mg 6-23 tablet by ity of tablet 00:00: mouth [place] 00 daily. Medical Branch pantoprazol 2020-0 Yes [id number] 40mg Take 1 Univers e 40 mg EC 6-23 tablet by ity of tablet 00:00: mouth [place] 00 daily. Medical Branch amLODIPine 2020-0 Yes [id number] 10mg Take 1 U nivers 10 mg 6-23 tablet by ity of tablet 00:00: mouth [place] 00 daily. Medical Branch pantoprazol 2020-0 Yes [id number] 40mg Take 1 Univers e 40 mg EC 6-23 tablet by ity of tablet 00:00: mouth [place] 00 daily. Medical Branch amLODIPine 2020-0 Yes [id number] 10mg Take 1 U nivers 10 mg 6-23 tablet by ity of tablet 00:00: mouth [place] 00 daily. Medical Branch pantoprazol 2020-0 Yes [id number] 40mg Take 1 Univers e 40 mg EC 6-23 tablet by ity of tablet 00:00: mouth [place] 00 daily. Medical Branch amLODIPine 2020-0 Yes [id number] 10mg Take 1 U nivers 10 mg 6-23 tablet by ity of tablet 00:00: mouth [place] 00 daily. Medical Branch pantoprazol 2020-0 Yes [id number] 40mg Take 1 Univers e 40 mg EC 6-23 tablet by ity of tablet 00:00: mouth [place] 00 daily. Medical Branch amLODIPine 2020-0 Yes [id number] 10mg Take 1 U nivers 10 mg 6-23 tablet by ity of tablet 00:00: mouth [place] 00 daily. Medical Branch pantoprazol 2020-0 Yes [id number] 40mg Take 1 Univers e 40 mg EC 6-23 tablet by ity of tablet 00:00: mouth [place] 00 daily. Medical Branch amLODIPine 2020-0 2020- No [id number] 10mg Take 1 [facility] 10 mg 03-3115 tablet by ity of tablet 00:00: 00:00 mouth [place] 00 :00 daily. Medical Branch pantoprazol 2020-0 2020- No [id number] 40mg Take 1 Univers e 40 mg EC 03-3113 tablet by ity of tablet 00:00: 00:00 mouth [place] 00 :00 daily. Medical Branch vitamin b 2020-0 Yes 1{tbl} Take 1 Univ ers complex-vit 6-22 tablet by ity of villatoro 21:48: mouth [place] c-folic 54 daily. Medical acid Branch (FAUZIA-CONOR) 0.8 mg tablet tamsulosin 2020-0 Yes Take by [facility] vers 0.4 mg 24 6-22 mouth ity of hr capsule 21:48: daily. [place] [address] Medical Branch zolpidem 10 2020-0 Yes 10mg Take 10 mg [facility] mg tablet 6-22 by mouth ity of 21:48: at bedtime [place] [address] as needed Medical for Branch Insomnia. diazePAM 2020-0 Yes 5mg Take 5 mg Univ ers (VALIUM) 5 6-22 by mouth ity o f mg tablet 21:48: at [place] [address] bedtime. Medical Branch hydralAZINE 2020-0 Yes 50mg Take 50 mg [facility] 50 mg 6-22 by mouth ity of tablet 21:48: every 8 [place] [address] (eight) Medical hours. Branch vitamin b 2020-0 Yes 1{tbl} Take 1 [facility] ers complex-vit 6-22 tablet by ity of villatoro 21:48: mouth [place] c-folic 54 daily. Medical acid Branch (FAUZIA-CONOR) 0.8 mg tablet tamsulosin 2020-0 Yes Take by [facility] vers 0.4 mg 24 6-22 mouth ity of hr capsule 21:48: daily. [place] [address] Medical Branch zolpidem 10 2020-0 Yes 10mg Take 10 mg [facility] mg tablet 6-22 by mouth ity of 21:48: at bedtime [place] [address] as needed Medical for Branch Insomnia. diazePAM 2020-0 Yes 5mg Take 5 mg Univ ers (VALIUM) 5 6-22 by mouth ity o f mg tablet 21:48: at [place] [address] bedtime. Medical Branch hydralAZINE 2020-0 Yes 50mg Take 50 mg [facility] 50 mg 6-22 by mouth ity of tablet 21:48: every 8 [place] [address] (eight) Medical hours. Branch vitamin b 2020-0 Yes 1{tbl} Take 1 [facility] ers complex-vit 6-22 tablet by ity of villatoro 21:48: mouth [place] c-folic 54 daily. Medical acid Branch (FAUZIA-CONOR) 0.8 mg tablet tamsulosin 2020-0 Yes Take by [facility] vers 0.4 mg 24 6-22 mouth ity of hr capsule 21:48: daily. [place] [address] Medical Branch zolpidem 10 2020-0 Yes 10mg Take 10 mg [facility] mg tablet 6-22 by mouth ity of 21:48: at bedtime [place] [address] as needed Medical for Branch Insomnia. diazePAM 2020-0 Yes 5mg Take 5 mg [facility] ers (VALIUM) 5 6-22 by mouth ity o f mg tablet 21:48: at [place] [address] bedtime. Medical Branch hydralAZINE 2020-0 Yes 50mg Take 50 mg [facility] 50 mg 6-22 by mouth ity of tablet 21:48: every 8 [place] [address] (eight) Medical hours. Branch vitamin b 2020-0 Yes 1{tbl} Take 1 [facility] ers complex-vit 6-22 tablet by ity of villatoro 21:48: mouth [place] c-folic 54 daily. Medical acid Branch (FAUZIA-CONOR) 0.8 mg tablet tamsulosin 2020-0 Yes Take by [facility] vers 0.4 mg 24 6-22 mouth ity of hr capsule 21:48: daily. [place] [address] Medical Branch zolpidem 10 2020-0 Yes 10mg Take 10 mg [facility] mg tablet 6-22 by mouth ity of 21:48: at bedtime [place] [address] as needed Medical for Branch Insomnia. diazePAM 2020-0 Yes 5mg Take 5 mg [facility] ers (VALIUM) 5 6-22 by mouth ity o f mg tablet 21:48: at [place] [address] bedtime. Medical Branch hydralAZINE 2020-0 Yes 50mg Take 50 mg [facility] 50 mg 6-22 by mouth ity of tablet 21:48: every 8 [place] [address] (eight) Medical hours. Branch vitamin b 2020-0 Yes 1{tbl} Take 1 [facility] ers complex-vit 6-22 tablet by ity of villatoro 21:48: mouth [place] c-folic 54 daily. Medical acid Branch (FAUZIA-CONOR) 0.8 mg tablet tamsulosin 2020-0 Yes Take by [facility] vers 0.4 mg 24 6-22 mouth ity of hr capsule 21:48: daily. [place] [address] Medical Branch zolpidem 10 2020-0 Yes 10mg Take 10 mg [facility] mg tablet 6-22 by mouth ity of 21:48: at bedtime [place] [address] as needed Medical for Branch Insomnia. diazePAM 2020-0 Yes 5mg Take 5 mg [facility] ers (VALIUM) 5 6-22 by mouth ity o f mg tablet 21:48: at [place] [address] bedtime. Medical Branch hydralAZINE 2020-0 Yes 50mg Take 50 mg [facility] 50 mg 6-22 by mouth ity of tablet 21:48: every 8 [place] [address] (eight) Medical hours. Branch vitamin b 2020-0 Yes 1{tbl} Take 1 [facility] ers complex-vit 6-22 tablet by ity of villatoro 21:48: mouth [place] c-folic 54 daily. Medical acid Branch (FAUZIA-CONOR) 0.8 mg tablet tamsulosin 2020-0 Yes Take by [facility] vers 0.4 mg 24 6-22 mouth ity of hr capsule 21:48: daily. [place] [address] Medical Branch zolpidem 10 2020-0 Yes 10mg Take 10 mg [facility] mg tablet 6-22 by mouth ity of 21:48: at bedtime [place] [address] as needed Medical for Branch Insomnia. diazePAM 2020-0 Yes 5mg Take 5 mg [facility] ers (VALIUM) 5 6-22 by mouth ity o f mg tablet 21:48: at [place] [address] bedtime. Medical Branch hydralAZINE 2020-0 Yes 50mg Take 50 mg [facility] 50 mg 6-22 by mouth ity of tablet 21:48: every 8 [place] [address] (eight) Medical hours. Branch vitamin b 2020-0 Yes 1{tbl} Take 1 [facility] ers complex-vit 6-22 tablet by ity of villatoro 21:48: mouth [place] c-folic 54 daily. Medical acid Branch (FAUZIA-CONOR) 0.8 mg tablet tamsulosin 2020-0 Yes Take by [facility] vers 0.4 mg 24 6-22 mouth ity of hr capsule 21:48: daily. [place] [address] Medical Branch zolpidem 10 2020-0 Yes 10mg Take 10 mg [facility] mg tablet 6-22 by mouth ity of 21:48: at bedtime [place] [address] as needed Medical for Branch Insomnia. diazePAM 2020-0 Yes 5mg Take 5 mg [facility] ers (VALIUM) 5 6-22 by mouth ity o f mg tablet 21:48: at [place] [address] bedtime. Medical Branch hydralAZINE 2020-0 Yes 50mg Take 50 mg [facility] 50 mg 6-22 by mouth ity of tablet 21:48: every 8 [place] [address] (eight) Medical hours. Branch vitamin b 2020-0 Yes 1{tbl} Take 1 [facility] ers complex-vit 6-22 tablet by ity of villatoro 21:48: mouth [place] c-folic 54 daily. Medical acid Branch (FAUZIA-CONOR) 0.8 mg tablet tamsulosin 2020-0 Yes Take by [facility] vers 0.4 mg 24 6-22 mouth ity of hr capsule 21:48: daily. [place] [address] Medical Branch zolpidem 10 2020-0 Yes 10mg Take 10 mg [facility] mg tablet 6-22 by mouth ity of 21:48: at bedtime [place] [address] as needed Medical for Branch Insomnia. diazePAM 2020-0 Yes 5mg Take 5 mg [facility] ers (VALIUM) 5 6-22 by mouth ity o f mg tablet 21:48: at [place] [address] bedtime. Medical Branch hydralAZINE 2020-0 Yes 50mg Take 50 mg [facility] 50 mg 6-22 by mouth ity of tablet 21:48: every 8 [place] [address] (eight) Medical hours. Branch vitamin b 2020-0 Yes 1{tbl} Take 1 [facility] ers complex-vit 6-22 tablet by ity of villatoro 21:48: mouth [place] c-folic 54 daily. Medical acid Branch (FAUZIA-CONOR) 0.8 mg tablet tamsulosin 2020-0 Yes Take by [facility] vers 0.4 mg 24 6-22 mouth ity of hr capsule 21:48: daily. [place] [address] Medical Branch zolpidem 10 2020-0 Yes 10mg Take 10 mg [facility] mg tablet 6-22 by mouth ity of 21:48: at bedtime [place] [address] as needed Medical for Branch Insomnia. diazePAM 2020-0 Yes 5mg Take 5 mg [facility] ers (VALIUM) 5 6-22 by mouth ity o f mg tablet 21:48: at [place] [address] bedtime. Medical Branch hydralAZINE 2020-0 Yes 50mg Take 50 mg [facility] 50 mg 6-22 by mouth ity of tablet 21:48: every 8 [place] [address] (eight) Medical hours. Branch vitamin b 2020-0 Yes 1{tbl} Take 1 [facility] ers complex-vit 6-22 tablet by ity of villatoro 21:48: mouth [place] c-folic 54 daily. Medical acid Branch (FAUZIA-CONOR) 0.8 mg tablet tamsulosin 2020-0 Yes Take by [facility] vers 0.4 mg 24 6-22 mouth ity of hr capsule 21:48: daily. [place] [address] Medical Branch zolpidem 10 2020-0 Yes 10mg Take 10 mg [facility] mg tablet 6-22 by mouth ity of 21:48: at bedtime [place] [address] as needed Medical for Branch Insomnia. diazePAM 2020-0 Yes 5mg Take 5 mg [facility] ers (VALIUM) 5 6-22 by mouth ity o f mg tablet 21:48: at [place] [address] bedtime. Medical Branch hydralAZINE 2020-0 Yes 50mg Take 50 mg [facility] 50 mg 6-22 by mouth ity of tablet 21:48: every 8 [place] [address] (eight) Medical hours. Branch vitamin b 2020-0 Yes 1{tbl} Take 1 [facility] ers complex-vit 6-22 tablet by ity of villatoro 21:48: mouth [place] c-folic 54 daily. Medical acid Branch (FAUZIA-CONOR) 0.8 mg tablet tamsulosin 2020-0 Yes Take by [facility] vers 0.4 mg 24 6-22 mouth ity of hr capsule 21:48: daily. [place] [address] Medical Branch zolpidem 10 2020-0 Yes 10mg Take 10 mg [facility] mg tablet 6-22 by mouth ity of 21:48: at bedtime [place] [address] as needed Medical for Branch Insomnia. diazePAM 2020-0 Yes 5mg Take 5 mg [facility] ers (VALIUM) 5 6-22 by mouth ity o f mg tablet 21:48: at [place] [address] bedtime. Medical Branch hydralAZINE 2020-0 Yes 50mg Take 50 mg [facility] 50 mg 6-22 by mouth ity of tablet 21:48: every 8 [place] [address] (eight) Medical hours. Branch amlodipine 2020-0 2020- No 1{tbl} Take 1 Un seun besylate/be 6-30 03- tablet by it y of nazepril 17:24: 00:00 mouth 3 [place] (AMLODIPINE 40 :00 (three) Medic al -BENAZEPRIL times Branch ORAL) daily. carvedilol 2020-0 2020- No 6.25mg Take 6.25 [facility] 6.25 mg 6-22 06-22 mg by ity of tablet 17:24: 00:00 mouth 2 [place] 40 :00 (two) Medical times Branch daily with meals. furosemide 2020-0 2020- No 80mg Take 80 mg [facility] (LASIX) 80 6-22 06-22 by mouth 3 it y of mg tablet 17:24: 00:00 (three[place] :[place] times Medical daily. Branch calcium 2020-0 2020- No 2001mg Take 2,001 U nivers acetate 667 6-22 06-22 mg by ity of mg capsule 17:24: 00:00 mouth 3 [place] 40 :00 (three) Medical times Branch daily with meals. hydralAZINE 2020-0 Yes 50mg Take 50 mg [facility] 50 mg 6-22 by mouth ity of tablet 17:24: every 8 [place] [address] (eight) Medical hours. Branch vitamin b 2020-0 Yes 1{tbl} Take 1 [facility] ers complex-vit 6-22 tablet by ity of villatoro 17:24: mouth [place] c-folic 37 daily. Medical acid Branch (FAUZIA-CONOR) 0.8 mg tablet tamsulosin 2020-0 Yes Take by [facility] vers 0.4 mg 24 6-22 mouth ity of hr capsule 17:24: daily. [place] [address] Medical Branch zolpidem 10 2019-0 Yes 10mg Take 10 mg [facility] mg tablet 6-22 by mouth ity of 17:24: at bedtime [place] [address] as needed Medical for Branch Insomnia. diazePAM 2020-0 Yes 5mg Take 5 mg [facility] ers (VALIUM) 5 6-22 by mouth ity o f mg tablet 17:24: at [place] [address] bedtime. Medical Branch hydralAZINE 2020-0 Yes 50mg Take 50 mg [facility] 50 mg 6-22 by mouth ity of tablet 17:24: every 8 [place] [address] (eight) Medical hours. Branch vitamin b 2020-0 Yes 1{tbl} Take 1 [facility] ers complex-vit 6-22 tablet by ity of villatoro 17:24: mouth [place] c-folic 37 daily. Medical acid Branch (FAUZIA-CONOR) 0.8 mg tablet tamsulosin 2020-0 Yes Take by [facility] vers 0.4 mg 24 6-22 mouth ity of hr capsule 17:24: daily. [place] [address] Medical Branch zolpidem 10 2020-0 Yes 10mg Take 10 mg [facility] mg tablet -22 by mouth ity of 17:24: at bedtime [place] 37 as needed Medical for Branch Insomnia. diazePAM 2020-0 Yes 5mg Take 5 mg [facility] ers (VALIUM) 5 -22 by mouth ity o f mg tablet 17:24: at [place] [address] bedtime. Medical Branch D5W 0.45% 2020-0 2020- No IV [facility] NaCl + KCL 03-30 Infusion, ity of 20 mEq RTU 05:00: 17:19 CONTINUOUS [place] 20 mEq/L IV 00 :54 , Starting Me dical Solution Mon Branch 03/30/20 at 0000, Until 03/30/20 at 1219, at 75 mL/hr HYDROcodone 2020-0 Yes [id number] 1{tbl} Take 1 [facility] -acetaminop 6-22 tablet by ity of hen 5-325 00:00: mouth [place] mg tablet 00 every 6 Medical (six) Branch hours as needed for Pain (scale 7-10). carvediloL 2020-0 Yes [id number] 12.5mg Take 1 [facility] 12.5 mg 6-22 tablet by ity of tablet 00:00: mouth 2 [place] 00 (two) Medical times Branch daily with meals. calcium 2020-0 Yes [id number] 1334mg Take 2 Un seun acetate 667 6-22 capsules ity of mg capsule 00:00: by mouth 3 [place] 00 (three) Medical times Branch daily with meals. HYDROcodone 2020-0 Yes [id number] 1{tbl} Take 1 [facility] -acetaminop 6-22 tablet by ity of hen 5-325 00:00: mouth [place] mg tablet 00 every 6 Medical (six) Branch hours as needed for Pain (scale 7-10). carvediloL 2020-0 Yes [id number] 12.5mg Take 1 [facility] 12.5 mg 6-22 tablet by ity of tablet 00:00: mouth 2 [place] 00 (two) Medical times Branch daily with meals. calcium 2020-0 Yes [id number] 1334mg Take 2 Un seun acetate 667 6-22 capsules ity of mg capsule 00:00: by mouth 3 [place] 00 (three) Medical times Branch daily with meals. HYDROcodone 2020-0 Yes [id number] 1{tbl} Take 1 [facility] -acetaminop 6-22 tablet by ity of hen 5-325 00:00: mouth [place] mg tablet 00 every 6 Medical (six) Branch hours as needed for Pain (scale 7-10). carvediloL 2020-0 Yes [id number] 12.5mg Take 1 [facility] 12.5 mg 6-22 tablet by ity of tablet 00:00: mouth 2 [place] (two) Medical times Branch daily with meals. calcium 2020-0 Yes [id number] 1334mg Take 2 Un seun acetate 667 6-22 capsules ity of mg capsule 00:00: by mouth 3 [place] (three) Medical times Branch daily with meals. HYDROcodone 2020-0 Yes [id number] 1{tbl} Take 1 [facility] -acetaminop 6-22 tablet by ity of hen 5-325 00:00: mouth [place] mg tablet 00 every 6 Medical (six) Branch hours as needed for Pain (scale 7-10). carvediloL 2020-0 Yes [id number] 12.5mg Take 1 [facility] 12.5 mg 6-22 tablet by ity of tablet 00:00: mouth 2 (two) Medical times Branch daily with meals. calcium 2020-0 Yes [id number] 1334mg Take 2 Un seun acetate 667 6-22 capsules ity of mg capsule 00:00: by mouth 3 [place] (three) Medical times Branch daily with meals. HYDROcodone 2020-0 Yes [id number] 1{tbl} Take 1 [facility] -acetaminop 6-22 tablet by ity of hen 5-325 00:00: mouth [place] mg tablet 00 every 6 Medical (six) Branch hours as needed for Pain (scale 7-10). carvediloL 2020-0 Yes [id number] 12.5mg Take 1 [facility] 12.5 mg 6-22 tablet by ity of tablet 00:00: mouth 2 [place] (two) Medical times Branch daily with meals. calcium 2020-0 Yes [id number] 1334mg Take 2 Un seun acetate 667 6-22 capsules ity of mg capsule 00:00: by mouth 3 [place] 00 (three) Medical times Branch daily with meals. HYDROcodone 2020-0 Yes [id number] 1{tbl} Take 1 [facility] -acetaminop 6-22 tablet by ity of hen 5-325 00:00: mouth [place] mg tablet 00 every 6 Medical (six) Branch hours as needed for Pain (scale 7-10). carvediloL 2020-0 Yes [id number] 12.5mg Take 1 [facility] 12.5 mg 6-22 tablet by ity of tablet 00:00: mouth 2 (two) Medical times Branch daily with meals. calcium 2020-0 Yes [id number] 1334mg Take 2 Un seun acetate 667 6-22 capsules ity of mg capsule 00:00: by mouth 3 [place] 00 (three) Medical times Branch daily with meals. HYDROcodone 2020-0 Yes [id number] 1{tbl} Take 1 [facility] -acetaminop 6-22 tablet by ity of hen 5-325 00:00: mouth [place] mg tablet 00 every 6 Medical (six) Branch hours as needed for Pain (scale 7-10). carvediloL 2020-0 Yes [id number] 12.5mg Take 1 [facility] 12.5 mg 6-22 tablet by ity of tablet 00:00: mouth (two) Medical times Branch daily with meals. calcium 2020-0 Yes [id number] 1334mg Take 2 Un seun acetate 667 6-22 capsules ity of mg capsule 00:00: by mouth 3 [place] (three) Medical times Branch daily with meals. HYDROcodone 2020-0 Yes [id number] 1{tbl} Take 1 [facility] -acetaminop 6-22 tablet by ity of hen 5-325 00:00: mouth [place] mg tablet 00 every 6 Medical (six) Branch hours as needed for Pain (scale 7-10). carvediloL 2020-0 Yes [id number] 12.5mg Take 1 [facility] 12.5 mg 6-22 tablet by ity of tablet 00:00: mouth 2 [place] (two) Medical times Branch daily with meals. calcium 2020-0 Yes [id number] 1334mg Take 2 Un seun acetate 667 6-22 capsules ity of mg capsule 00:00: by mouth 3 [place] 00 (three) Medical times Branch daily with meals. HYDROcodone 2020-0 Yes [id number] 1{tbl} Take 1 [facility] -acetaminop 6-22 tablet by ity of hen 5-325 00:00: mouth [place] mg tablet 00 every 6 Medical (six) Branch hours as needed for Pain (scale 7-10). carvediloL 2020-0 Yes [id number] 12.5mg Take 1 [facility] 12.5 mg 6-22 tablet by ity of tablet 00:00: mouth (two) Medical times Branch daily with meals. calcium 2020-0 Yes [id number] 1334mg Take 2 Un seun acetate 667 6-22 capsules ity of mg capsule 00:00: by mouth 3 [place] (three) Medical times Branch daily with meals. HYDROcodone 2020-0 Yes [id number] 1{tbl} Take 1 [facility] -acetaminop 6-22 tablet by ity of hen 5-325 00:00: mouth [place] mg tablet 00 every 6 Medical (six) Branch hours as needed for Pain (scale 7-10). carvediloL 2020-0 Yes [id number] 12.5mg Take 1 [facility] 12.5 mg 6-22 tablet by ity of tablet 00:00: mouth (two) Medical times Branch daily with meals. calcium 2020-0 Yes [id number] 1334mg Take 2 Un seun acetate 667 6-22 capsules ity of mg capsule 00:00: by mouth 3 [place] (three) Medical times Branch daily with meals. HYDROcodone 2020-0 Yes [id number] 1{tbl} Take 1 [facility] -acetaminop 6-22 tablet by ity of hen 5-325 00:00: mouth [place] mg tablet 00 every 6 Medical (six) Branch hours as needed for Pain (scale 7-10). carvediloL 2020-0 Yes [id number] 12.5mg Take 1 [facility] 12.5 mg 6-22 tablet by ity of tablet 00:00: mouth (two) Medical times Branch daily with meals. calcium 2020-0 Yes [id number] 1334mg Take 2 Un seun acetate 667 6-22 capsules ity of mg capsule 00:00: by mouth 3 [place] (three) Medical times Branch daily with meals. calcium 2020-0 Yes [id number] 1334mg Take 2 Un seun acetate 667 6-22 capsules ity of mg capsule 00:00: by mouth 3 [place] (three) Medical times Branch daily with meals. calcium 2020-0 Yes [id number] 1334mg Take 2 Un seun acetate 667 6-22 capsules ity of mg capsule 00:00: by mouth 3 [place] (three) Medical times Branch daily with meals. calcium 2020-0 Yes [id number] 1334mg Take 2 Un seun acetate 667 6-22 capsules ity of mg capsule 00:00: by mouth 3 [place] 00 (three) Medical times Branch daily with meals. calcium 2020-0 Yes [id number] 1334mg Take 2 Un seun acetate 667 6-22 capsules ity of mg capsule 00:00: by mouth 3 [place] 00 (three) Medical times Branch daily with meals. calcium 2020-0 Yes [id number] 1334mg Take 2 Un seun acetate 667 6-22 capsules ity of mg capsule 00:00: by mouth 3 [place] 00 (three) Medical times Branch daily with meals. calcium 2020-0 Yes [id number] 1334mg Take 2 Un seun acetate 667 6-22 capsules ity of mg capsule 00:00: by mouth 3 [place] 00 (three) Medical times Branch daily with meals. calcium 2020-0 Yes [id number] 1334mg Take 2 Un seun acetate 667 6-22 capsules ity of mg capsule 00:00: by mouth 3 [place] 00 (three) Medical times Branch daily with meals. calcium 2020-0 Yes [id number] 1334mg Take 2 Un seun acetate 667 6-22 capsules ity of mg capsule 00:00: by mouth 3 [place] 00 (three) Medical times Branch daily with meals. calcium 2020-0 Yes [id number] 1334mg Take 2 Un seun acetate 667 6-22 capsules ity of mg capsule 00:00: by mouth 3 [place] 00 (three) Medical times Branch daily with meals. calcium 2020-0 Yes [id number] 1334mg Take 2 Un seun acetate 667 6-22 capsules ity of mg capsule 00:00: by mouth 3 [place] 00 (three) Medical times Branch daily with meals. calcium 2020-0 Yes [id number] 1334mg Take 2 Un seun acetate 667 6-22 capsules ity of mg capsule 00:00: by mouth 3 [place] 00 (three) Medical times Branch daily with meals. calcium 2020-0 Yes [id number] 1334mg Take 2 Un seun acetate 667 6-22 capsules ity of mg capsule 00:00: by mouth 3 [place] 00 (three) Medical times Branch daily with meals. calcium 2020-0 Yes [id number] 1334mg Take 2 Un seun acetate 667 6-22 capsules ity of mg capsule 00:00: by mouth 3 [place] 00 (three) Medical times Branch daily with meals. calcium 2020-0 Yes [id number] 1334mg Take 2 Un seun acetate 667 6-22 capsules ity of mg capsule 00:00: by mouth 3 [place] 00 (three) Medical times Branch daily with meals. calcium 2020-0 Yes [id number] 1334mg Take 2 Un seun acetate 667 6-22 capsules ity of mg capsule 00:00: by mouth 3 [place] 00 (three) Medical times Branch daily with meals. calcium 2020-0 Yes [id number] 1334mg Take 2 Un seun acetate 667 6-22 capsules ity of mg capsule 00:00: by mouth 3 [place] 00 (three) Medical times Branch daily with meals. calcium 2020-0 Yes [id number] 1334mg Take 2 Un seun acetate 667 6-22 capsules ity of mg capsule 00:00: by mouth 3 [place] 00 (three) Medical times Branch daily with meals. calcium 2020-0 Yes [id number] 1334mg Take 2 Un seun acetate 667 6-22 capsules ity of mg capsule 00:00: by mouth 3 [place] 00 (three) Medical times Branch daily with meals. calcium 2020-0 Yes [id number] 1334mg Take 2 Un seun acetate 667 6-22 capsules ity of mg capsule 00:00: by mouth 3 [place] 00 (three) Medical times Branch daily with meals. calcium 2020-0 Yes [id number] 1334mg Take 2 Un seun acetate 667 6-22 capsules ity of mg capsule 00:00: by mouth 3 [place] 00 (three) Medical times Branch daily with meals. calcium 2020-0 Yes [id number] 1334mg Take 2 Un seun acetate 667 6-22 capsules ity of mg capsule 00:00: by mouth 3 [place] 00 (three) Medical times Branch daily with meals. calcium 2020-0 Yes [id number] 1334mg Take 2 Un seun acetate 667 6-22 capsules ity of mg capsule 00:00: by mouth 3 [place] 00 (three) Medical times Branch daily with meals. calcium 2020-0 Yes [id number] 1334mg Take 2 Un se[facility] acetate 667 6-22 capsules ity of mg capsule 00:00: by mouth 3 [place] 00 (three) Medical times Branch daily with meals. calcium 2020-0 Yes [id number] 1334mg Take 2 Un seun acetate 667 6-22 capsules ity of mg capsule 00:00: by mouth 3 [place] 00 (three) Medical times Branch daily with meals. calcium 2020-0 Yes [id number] 1334mg Take 2 Un seun acetate 667 6-22 capsules ity of mg capsule 00:00: by mouth 3 [place] 00 (three) Medical times Branch daily with meals. calcium 2020-0 Yes [id number] 1334mg Take 2 Un seun acetate 667 6-22 capsules ity of mg capsule 00:00: by mouth 3 [place] 00 (three) Medical times Branch daily with meals. calcium 2020-0 Yes [id number] 1334mg Take 2 Un seun acetate 667 6-22 capsules ity of mg capsule 00:00: by mouth 3 [place] 00 (three) Medical times Branch daily with meals. calcium 2020-0 Yes [id number] 1334mg Take 2 Un seun acetate 667 6-22 capsules ity of mg capsule 00:00: by mouth 3 [place] 00 (three) Medical times Branch daily with meals. calcium 2020-0 Yes [id number] 1334mg Take 2 Un se[place] acetate 667 6-22 capsules ity of mg capsule 00:00: by mouth 3 [place] 00 (three) Medical times Branch daily with meals. calcium 2020-0 Yes [id number] 1334mg Take 2 Un seun acetate 667 6-22 capsules ity of mg capsule 00:00: by mouth 3 [place] 00 (three) Medical times Branch daily with meals. calcium 2020-0 Yes [id number] 1334mg Take 2 Un seun acetate 667 6-22 capsules ity of mg capsule 00:00: by mouth 3 [place] 00 (three) Medical times Branch daily with meals. calcium 2020-0 Yes [id number] 1334mg Take 2 Un se[facility] acetate 667 6-22 capsules ity of mg capsule 00:00: by mouth 3 [place] 00 (three) Medical times Branch daily with meals. HYDROcodone 2020-0 Yes [id number] 1{tbl} Take 1 [facility] -acetaminop 6-22 tablet by ity of hen 5-325 00:00: mouth [place] mg tablet 00 every 6 Medical (six) Branch hours as needed for Pain (scale 7-10). carvediloL 2020-0 Yes [id number] 12.5mg Take 1 [facility] 12.5 mg 6-22 tablet by ity of tablet 00:00: mouth 2 00 (two) Medical times Branch daily with meals. calcium 2020-0 Yes [id number] 1334mg Take 2 Un seun acetate 667 6-22 capsules ity of mg capsule 00:00: by mouth 3 [place] 00 (three) Medical times Branch daily with meals. HYDROcodone 2020-0 Yes [id number] 1{tbl} Take 1 [facility] -acetaminop 6-22 tablet by ity of hen 5-325 00:00: mouth [place] mg tablet 00 every 6 Medical (six) Branch hours as needed for Pain (scale 7-10). carvediloL 2020-0 Yes [id number] 12.5mg Take 1 [facility] 12.5 mg 6-22 tablet by ity of tablet 00:00: mouth 2 (two) Medical times Branch daily with meals. calcium 2020-0 Yes [id number] 1334mg Take 2 Un seun acetate 667 6-22 capsules ity of mg capsule 00:00: by mouth 3 [place] (three) Medical times Branch daily with meals. HYDROcodone 2020-0 2020- No [id number] 1{tbl} Take 1 [facility] -acetaminop 6-22 09-13 tablet by it y of hen 5-325 00:00: 00:00 mouth [place] mg tablet 00 :00 every 6 Medical (six) Branch hours as needed for Pain (scale 7-10). carvediloL 2020-0 2020- No [id number] 12.5mg Take 1 [facility] 12.5 mg 6-22 09-13 tablet by ity of tablet 00:00: 00:00 mouth 2 [place] 00 :00 (two) Medical times Branch daily with meals. zolpidem 2020-0 Yes 5mg 5 mg, [facility] (AMBIEN) 6-21 Oral, ity of tablet 5 mg 14:28: QHSPRN, [place] 03 Starting Medical [place] [facility] 03/29/20 at 0928, Until Discontinu ed, Routine, Insomnia tamsulosin 2020-0 Yes .4mg 0.4 mg, Univ ers (FLOMAX) 03-29 Oral, ity of capsule 0.4 14:00: DAILY, [place] 00 First dose Medical on [facility] 03/29/20 at 0900, Until Discontinu ed, Routine carvediloL 2020-0 Yes 12.5mg 12.5 mg, U nivers (COREG) 03-29 Oral, BID ity of tablet 12.5 13:00: MEALS, [place] mg 00 First dose Medical on [facility] 03/29/20 at 0800, Until Discontinu ed, Routine zolpidem 2019- 2020- No 10mg 10 mg, Univer s (AMBIEN) 03-29 Oral, ity of tablet 10 05:15: 04:58 ONCE, 1 [place] mg 00 :00 dose, [facility] 03/29/20 at Branch 0015, Routine melatonin 2019- 2020- No 3mg 3 mg, Univer s (MELATIN) 03-29 Oral, ity of tablet 3 mg 04:15: 03:14 ONCE, 1 [place] 00 :[place] dose, [facility] 03/28/20 at Branch 2315, Routine HYDROcodone 2020-0 Yes 1{tbl} 1 tablet, [facility] -acetaminop 03-28 Oral, ity of hen (NORCO 21:00: Q4HPRN, [place] 5) 5-325 mg 00 Starting Medi sony tablet 1 [facility] tablet 03/28/20 at 1600, Until Discontinu ed, Routine, Pain (scale 7-10) heparin 2019-0 2020- No [id number] 3,900 Univers (PF) 1,000 03-27 Units, ity of unit/mL 22:30: 21:21 Slow IV [place] injection 00 :00 Push, Medical 3,900 Units DIALYSIS Bran ch ONCE - [facility], 1 dose, 03/27/20 at 1730, Routine morpHINE 2019-0 2020- No 2mg 2 mg, Slow Un seun injection 2 03-27 IV Push, ity of mg 19:20: 19:25 ONCE, 1 [place] 00 :00 dose, [facility] 03/27/20 at Branch 1430, Routine iohexol 2019-0 2020- No 120mL 120 mL, Unive rs (OMNIPAQUE 03-27 Intravenou it y of 350 18:00: 17:41 s, ONCE, 1 [place] BULK-150 00 :00 dose, Fri Medica l mL) 03/27/20 at Branch injection 1300, 120 mL Routine FENTanyl PF 2019-2019- No Slow IV Un seun (SUBLIMAZE 03-27 Push, ity of (PF)) 14:43: 14:43 TITRATE - [place] injection 19 :19 FOR Medical PROCEDURE Branch USE, 1 dose, Starting Mon03/27/20 at 0943, Until Mon03/27/20 at 0943, Routine FENTanyl PF 2019-0 2020- No Slow IV Un seun (SUBLIMAZE 03-27 Push, ity of (PF)) 14:13: 14:13 TITRATE - [place] injection 33 :33 FOR Medical PROCEDURE Branch USE, 1 dose, Starting Mon03/27/20 at 0913, Until 03/27/20 at 0913, Routine midazolam 2019-0 2020- No IV Push, Uni vers (VERSED) 03-27 TITRATE - ity o f injection 14:11: 14:11 FOR [place] 00 :00 PROCEDURE Medical USE, 1 Branch dose, Starting Mon03/27/20 at 0911, Until Mon03/27/20 at 0911, Routine FENTanyl PF 2019-0 2019- No Slow IV Un seun (SUBLIMAZE 03-27 Push, ity of (PF)) 13:59: 13:59 TITRATE - [place] injection 00 :00 FOR Medical PROCEDURE Branch USE, 1 dose, Starting Mon03/27/20 at 0859, Until Mon03/27/20 at 0859, Routine midazolam 2019-0 2020- No IV Push, Uni vers (VERSED) 03-27 TITRATE - ity o f injection 13:59: 13:59 FOR [place] 00 :00 PROCEDURE Medical USE, 1 Branch dose, Starting Mon03/27/20 at 0859, Until Mon03/27/20 at 0859, Routine midazolam 2020-0 2020- No IV Push, Uni vers (VERSED) 03-27 TITRATE - ity o f injection 13:24: 13:24 FOR [place] 00 :00 PROCEDURE Medical USE, 1 Branch dose, Starting Mon03/27/20 at 0824, Until Mon03/27/20 at 0824, Routine FENTanyl PF 2020-0 2020- No Slow IV Un seun (SUBLIMAZE 03-27 Push, ity of (PF)) 13:19: 13:19 TITRATE - [place] injection 00 :00 FOR Medical PROCEDURE Branch USE, 1 dose, Starting 03/27/20 at 0819, Until 03/27/20 at 0819, Routine midazolam 2019- No IV Push, Uni vers (VERSED) 03-27 TITRATE - ity o f injection 13:19: 13:19 FOR [place] 00 :00 PROCEDURE Medical USE, 1 Branch dose, Starting Mon03/27/20 at 0819, Until 03/27/20 at 0819, Routine HYDROcodone 2019- No 1{tbl} 1 tablet, Univers -acetaminop 03-27 Oral, ity of hen (NORCO 06:45: 05:49 ONCE, 1 [place] 5) 5-325 mg 00 :00 dose, Fri Med ical tablet 1 03/27/20 at [facility] h tablet 0145, Routine peg-electro 2019- No 2000mL 2,000 mL, Univers lyte soln 03-26 Oral, ity of (GOLYTELY) 22:30: 02:54 PRE-PROCED [place] [id number] 00 :00 URE ONCE, Med ical .74 -5.86 1 dose, Branch gram Starting solution [place] 2,000 mL 03/26/20 at 1730, Until [place] 03/26/20 at 2154, Routine, Bowel Prep, Colonoscop y bisacodyL 2019- No 10mg 10 mg, Unive rs (DULCOLAX) 03-26 Oral, ity of tablet 10 21:30: 21:49 PRE-PROCED [place] mg 00 :00 URE ONCE, Medical 1 dose, Branch Starting [place] 03/26/20 at 1630, Until [place] 03/26/20 at 1649, Routine, Bowel Prep, Colonoscop y ondansetron 2019- Yes 4mg 4 mg, Slow Univers (ZOFRAN 03-26 IV Push, ity of (PF)) 19:21: Q6HPRN, [place] injection 4 37 Starting Medi sony mg [place] Branch 03/26/20 at 1421, Until Discontinu ed, Routine, Nausea and Vomiting (N/V) bisacodyL 2019-0 2019- No 10mg 10 mg, Unive rs (DULCOLAX) 03-26 Oral, ity of tablet 10 19:21: 20:05 PRE-PROCED [place] mg 37 :00 URE ONCE, Medical 1 dose, Branch Starting [place] 03/26/20 at 1421, Until [place] 03/26/20 at 1505, Routine, Bowel Prep, Colonoscop y hydrOXYzine 2019-2019- No 10mg 10 mg, Uni vers (ATARAX) 03-26 Oral, ity of tablet 10 10:15: 10:28 ONCE, 1 [place] mg 00 :00 dose, [place] Medical 03/26/20 at Branch 0515, Routine HYDROcodone 2019-2019- No 1{tbl} 1 tablet, Univers -acetaminop 03-26 Oral, ity of hen (NORCO 03:30: 20:48 Q6HPRN, [place] 5) 5-325 mg 41 :42 Starting Medi sony tablet 1 Wed Branch tablet 03/25/20 at 2230, Until 03/28/20 at 1548, Routine, Pain (scale 7-10) epoetin 2019-0 2020- No [id number] 10,000 Unive rs franca-epbx 03-26 Units, ity of (RETACRIT) 01:00: 03:06 Subcutaneo [place] injection 00 :00 us, ONCE Medica l 10,000 AT 2000, 1 Branch Units dose, 03/25/20 at 2000, Routine
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 Restricted medication : PETER DAVIS hydrOXYzine 2019-2019- No 10mg 10 mg, Uni vers (ATARAX) 03-25 Oral, ity of tablet 10 20:51: 21:15 ONCE, 1 [place] mg 00 :00 dose, [facility] Medical 03/25/20 at Branch 1600, Routine calcium 2020-0 Yes 1334mg 1,334 mg, Uni vers acetate 03-25 Oral, TID ity of (PHOSLO) 13:00: MEALS, [place] capsule 00 First dose Medica l 1,334 mg on Wed Branch 03/25/20 at 0800, Until Discontinu ed, Routine pantoprazol 2019-0 2020- No 40mg 40 mg, IV Univers e 03-25 Piggyback, ity of (PROTONIX) 13:00: 17:20 Q12H, [place] 40 mg in 00 :52 First dose Medic al NaCl 0.9% on Mon Branch (NS) 100 mL 03/25/20 at MINI-BAG 0800, Until Discontinu ed, 100 mL carvediloL 2019-0 2020- No 6.25mg 6.25 mg, Univers (COREG) 03-24 Oral, BID ity of tablet 6.25 22:00: 12:54 MEALS, [place] mg 00 :45 First dose Medical on Mon03/24/20 at 1700, Until Discontinu ed, Routine calcium 2019-0 2020- No 667mg 667 mg, Unive rs acetate 03-24 Oral, TID ity of (PHOSLO) 22:00: 12:32 MEALS, [place] capsule 667 00 :38 First dose Me dical mg on Mon03/24/20 at 1700, Until Discontinu ed, Routine furosemide 2019-0 2019- No 20mg 20 mg, Univ ers (LASIX) 03-24 Slow IV ity of injection 17:45: 17:01 Push, [place] 20 mg 00 :00 ONCE, 1 Medical dose, [place] 03/24/20 at 1245, Routine heparin 2020-0 Yes 1000U PERITONEAL Uni vers (1,000 03-24 DIALYSIS ity of unit/mL, 10 15:41: PRN- PT [place] as mL vial) 20 ROOM, Medical (Peritoneal Starting Bran ch Dialysis) [facility] 03/24/20 at 1041, Until Discontinu ed, Routine
For peritoneal dialysis only, administer via intraperit vargas route. Dialysis nurse is to add Heparin 500 units (1000 units/mL) to each 1 liter of peritoneal dialysis solution.< br> amLODIPine 2019-0 Yes 10mg 10 mg, Unive rs (NORVASC) 03-24 Oral, ity of tablet 10 14:00: DAILY, [place] mg 00 First dose Medical on Mon03/24/20 at 0900, Until Discontinu ed, Routine D5W 0.9% 2019-0 2020- No 1000mL at 100 Univ ers NaCl (NS) 03-24 mL/hr, ity of IV infusion 13:45: 15:40 1,000 mL, [place] 1,000 mL 00 :42 IV Medical Infusion, [place] CONTINUOUS , Starting Mon03/24/20 at 0845, Until Mon03/24/20 at 1040, Routine pantoprazol 2019- No 8mg/h 8 mg/hr U nivers e 03-24 (50 ity of (PROTONIX) 12:32: 12:37 mL/hr), IV [place] 80 mg in 00 :25 Infusion, Medica l NaCl 0.9% CONTINUOUS Bran ch (NS) 500 mL , Starting infusion 03/24/20 at 0745 pantoprazol 2019-2019- No 40mg 40 mg, IV Univers e 03-24 Piggyback, ity of (PROTONIX) 12:32: 12:52 ONCE, 1 [place] 40 mg in 00 :00 dose, Tue Medica l NaCl 0.9% 03/24/20 at [facility] ch (NS) 100 mL 0745, 100 MINI-BAG mL iohexol 2019- No 150mL 150 mL, Unive rs (OMNIPAQUE 03-24 Intravenou it y of 350 11:00: 10:47 s, ONCE, 1 [place] BULK-150 00 :00 dose, Tue Medica l mL) 03/24/20 at [place] injection 0600, 150 mL Routine hydrOXYzine 2019- No 30mg 30 mg, Uni vers (ATARAX) 03-24 Oral, ity of tablet 30 03:30: 07:22 ONCE, 1 [place] mg 00 :00 dose, Mon Medical 03/23/20 at [place] 2230, Routine FENTanyl PF 2019- No 25ug 25 mcg, Un seun (SUBLIMAZE 03-24 Slow IV ity o f (PF)) 02:27: 12:25 Push, [place] injection 32 :01 Q15MIN Medical 25 mcg PRN, [place] Starting 03/23/20 at 2127, Until Mon03/25/20 at 0725, Routine, Pain (scale 7-10) acetaminoph 2019-2019- No 1{tbl} 1 tablet, Univers en-codeine 03-24 Oral, ity of (TYLENOL 02:27: 00:02 Q4HPRN, [place] #4) 300-60 04 :09 Starting Medic al mg tablet 1 Mon Branch tablet 03/23/20 at 2127, Until 03/25/20 at 1902, Routine, Pain (scale 4-6) pantoprazol 2020- No 40mg 40 mg, IV Univers e 03-24 Piggyback, ity of (PROTONIX) 01:00: 12:33 Q12H, [place] 40 mg in 00 :03 First dose Medic al NaCl 0.9% on Mon Branch (NS) 100 mL 03/23/20 at MINI-BAG 2000, Until Discontinu ed, 100 mL desmopressi 2019- No .3ug/kg 29.68 mcg Univers n (DDAVP) 03-24 (rounded ity o f 29.68 mcg 00:57: 02:47 from 29.67 [place] in NaCl 00 :00 mcg = 0.3 Medical 0.9% (NS) mcg/kg Branch piggyback ?98.9 kg), IV Piggyback, ONCE, 1 dose, 03/23/20 at 2000, 50 mL diphenhydrA 2019- No 50mg 50 mg, Uni vers MINE 03-23 Oral, ity of (BENADRYL) 23:15: 22:55 ONCE, 1 [place] capsule 50 00 :00 dose, Mon Medi sony mg 03/23/20 at Branch 1815, Routine ondansetron 2019- No 4mg 4 mg, Univ ers (ZOFRAN) 03-23 Oral, ity of tablet 4 mg 23:15: 22:55 ONCE, 1 [place] 00 :[place] dose, [facility] Medical 03/23/20 at Branch 1815, Routine gabapentin 2019- 2020- No 300mg 300 mg, Un seun (NEURONTIN) 03-23 Oral, ity of capsule 300 22:15: 22:55 ONCE, 1 [place] mg 00 :00 dose, [facility] Medical 03/23/20 at Branch 1715, Routine NaCl 0.9% 2020- No 1000mL at 10 [facility] ers (NS) IV 03-23 mL/hr, IV ity of infusion 19:30: 12:44 Infusion, [place] 1,000 mL 00 :19 CONTINUOUS Medic al , Starting Branch [facility] 03/23/20 at 1430, Until 03/24/20 at 0744, Routine NaCl 0.9% 2020-0 2020- No 1000mL at 125 Uni vers (NS) IV 03-23 06-15 mL/hr, IV ity of infusion 19:15: 19:26 Infusion, [place] 1,000 mL 00 :05 CONTINUOUS Medic al , Starting Branch [facility] 03/23/20 at 1415, Until [facility] 03/23/20 at 1426, Routine hydrALAZINE 2020-0 Yes 50mg 50 mg, Univ ers (APRESOLINE 6-15 Oral, TID, it y of ) tablet 50 19:00: First dose [place] mg 00 on Mon Medical 03/23/20 at Branch 1400, Until Discontinu ed, Routine HYDROcodone 2019-0 2020- No 1{tbl} 1 tablet, Univers -acetaminop 03-23 06-16 Oral, ity of hen (NORCO 18:55: 02:27 Q6HPRN, [place] 5) 5-325 mg 04 :47 Starting Medi sony tablet 1 [facility] tablet 03/23/20 at 1355, Until Mon03/23/20 at 2127, Routine, Pain (scale 4-6), Pain (scale 7-10) Morphine 2020-0 No 4 mg, Memoria 6-15 [...] 6-15 Route: l 13:48: IVP, ONCE, [place] Dosing Weight 104, kg, Priority: STAT, Start [...] TAB, 5 MG Oral Dosing Tablet Weight [[place] 104, kg, 5/325] ONCE, STAT, Start date: 03/23/20 5:53:00 CDT, Stop date: 03/23/20 5:53:00 CDT Acetaminoph 2020-0 No 1 tab, [place]jo lynn en 325 MG / 6-15 Route: PO, l Hydrocodone 10:53: Drug Form: [place] Bitartrate 00 TAB, 5 MG Oral Dosing Tablet Weight [[place] 104, kg, 5/325] ONCE, STAT, Start date: 03/23/20 5:53:00 CDT, Stop date: 03/23/20 5:53:00 CDT Acetaminoph 2020-0 No 1 tab, [place] l[place] en 325 MG / 6-15 Route: PO, l Hydrocodone 10:53: Drug Form: [place] Bitartrate 00 TAB, 5 MG Oral Dosing Tablet Weight [[place] 104, kg, 5/325] ONCE, STAT, Start date: 03/23/20 5:53:00 CDT, Stop date: 03/23/20 5:53:00 CDT Acetaminoph 2020-0 No Notes: Do M emoria en 325 MG / 6-15 not exceed l Hydrocodone 09:02: 4gm/day of [place] Bitartrate 00 acetaminop 10 MG Oral hen. Tablet (Same as: [[place] 10/325] 325/10) Acetaminoph 2020-0 No Notes: Do M emoria en 325 MG / 6-15 not exceed l Hydrocodone 09:02: 4gm/day of [place] Bitartrate 00 acetaminop 10 MG Oral hen. Tablet (Same as: [[place] 10/325] 325/10) Acetaminoph 2020-0 No Notes: Do M emoria en 325 MG / 6-15 not exceed l Hydrocodone 09:02: 4gm/day of [place] Bitartrate 00 acetaminop 10 MG Oral hen. Tablet (Same as: [[place] 10/325] 325/10) Sodium 2020-0 No 250 mL, Memoria Chloride 6-15 Rate: To l 0.9% 06:23: prime line [place] (titrate) 00 and flush 250 mL remaining [...] Rate: To l 0.9% 06:23: prime line [place] (titrate) 00 and flush 250 mL remaining blood products., Dosing Weight 104, kg, Route: IV, Total Volume: 250, Priority: Routine, Start Date: 03/23/20 1:23:00 CDT, Duration: 1 day, Stop date: 03/24/20 1:22:00 CDT, Replace Every: 24 hr, 0 acetaminoph 2020-0 2020- No 1{tbl} Uni vers en-codeine 6- 06-06 ity of (TYLENOL 23:45: 11:44 [place] #3) 300-30 00 :00 Medical mg tablet 1 Branch tablet acetaminoph 2020-0 2020- No 1{tbl} Uni vers en-codeine 03-13- ity of (TYLENOL 23:45: 11:44 [place] #3) 300-30 00 :00 Medical mg tablet 1 Branch tablet amlodipine 2020-0 Yes 1{tbl} Take 1 Uni vers besylate/be 5-28 tablet by ity of nazepril 22:33: mouth 3 [place] (AMLODIPINE 10 (three) Medic al -BENAZEPRIL times Branch ORAL) daily. carvedilol 2020-0 Yes 6.25mg Take 6.25 Univers 6.25 mg 5-28 mg by ity of tablet 22:33: mouth 2 [place] 10 (two) Medical times Branch daily with meals. furosemide 2020-0 Yes 80mg Take 80 mg U nivers (LASIX) 80 5-28 by mouth 3 ity of mg tablet 22:33: (three) [place] 10 times Medical daily. Branch hydralAZINE 2020-0 Yes 50mg Take 50 mg Univers 50 mg 5-28 by mouth ity of tablet 22:33: every 8 [place] 10 (eight) Medical hours. Branch calcium 2020-0 Yes 2001mg Take 2,001 Un seun acetate 667 5-28 mg by ity of mg capsule 22:33: mouth 3 [place] 10 (three) Medical times Branch daily with meals. vitamin b 2020-0 Yes 1{tbl} Take 1 Univ ers complex-vit 5-28 tablet by ity of villatoro 22:33: mouth [place] c-folic 10 daily. Medical acid Branch (FAUZIA-CONOR) 0.8 mg tablet tamsulosin 2020-0 Yes Take by Uni vers 0.4 mg 24 5-28 mouth ity of hr capsule 22:33: daily. [place] 10 Medical Branch zolpidem 10 2020-0 Yes 10mg Take 10 mg Univers mg tablet 5-28 by mouth ity of 22:33: at bedtime [place] 10 as needed Medical for Branch Insomnia. diazePAM 2020-0 Yes 5mg Take 5 mg Univ ers (VALIUM) 5 5-28 by mouth ity o f mg tablet 22:33: at [place] 10 bedtime. Medical Branch amlodipine 2020-0 Yes 1{tbl} Take 1 Uni vers besylate/be 5-28 tablet by ity of nazepril 22:33: mouth 3 [place] (AMLODIPINE 10 (three) Medic al -BENAZEPRIL times Branch ORAL) daily. carvedilol 2020-0 Yes 6.25mg Take 6.25 Univers 6.25 mg 5-28 mg by ity of tablet 22:33: mouth 2 [place] 10 (two) Medical times Branch daily with meals. furosemide 2020-0 Yes 80mg Take 80 mg U nivers (LASIX) 80 5-28 by mouth 3 ity of mg tablet 22:33: (three) [place] 10 times Medical daily. Branch hydralAZINE 2020-0 Yes 50mg Take 50 mg Univers 50 mg 5-28 by mouth ity of tablet 22:33: every 8 [place] 10 (eight) Medical hours. Branch calcium 2020-0 Yes 2001mg Take 2,001 Un seun acetate 667 5-28 mg by ity of mg capsule 22:33: mouth 3 [place] 10 (three) Medical times Branch daily with meals. vitamin b 2020-0 Yes 1{tbl} Take 1 Univ ers complex-vit 5-28 tablet by ity of villatoro 22:33: mouth [place] c-folic 10 daily. Medical acid Branch (FAUZIA-CONOR) 0.8 mg tablet tamsulosin 2020-0 Yes Take by Uni vers 0.4 mg 24 5-28 mouth ity of hr capsule 22:33: daily. [place] 10 Medical Branch zolpidem 10 2020-0 Yes 10mg Take 10 mg Univers mg tablet 5-28 by mouth ity of 22:33: at bedtime [place] 10 as needed Medical for Branch Insomnia. diazePAM 2020-0 Yes 5mg Take 5 mg Univ ers (VALIUM) 5 5-28 by mouth ity o f mg tablet 22:33: at [place] 10 bedtime. Medical Branch amlodipine 2020-0 Yes 1{tbl} Take 1 Uni vers besylate/be 5-28 tablet by ity of nazepril 22:33: mouth 3 [place] (AMLODIPINE 10 (three) Medic al -BENAZEPRIL times Branch ORAL) daily. carvedilol 2020-0 Yes 6.25mg Take 6.25 Univers 6.25 mg 5-28 mg by ity of tablet 22:33: mouth 2 [place] 10 (two) Medical times Branch daily with meals. furosemide 2020-0 Yes 80mg Take 80 mg U nivers (LASIX) 80 5-28 by mouth 3 ity of mg tablet 22:33: (three) [place] 10 times Medical daily. Branch hydralAZINE 2020-0 Yes 50mg Take 50 mg Univers 50 mg 5-28 by mouth ity of tablet 22:33: every 8 [place] 10 (eight) Medical hours. Branch calcium 2020-0 Yes 2001mg Take 2,001 Un seun acetate 667 5-28 mg by ity of mg capsule 22:33: mouth 3 [place] 10 (three) Medical times Branch daily with meals. vitamin b 2020-0 Yes 1{tbl} Take 1 Univ ers complex-vit 5-28 tablet by ity of villatoro 22:33: mouth [place] c-folic 10 daily. Medical acid Branch (FAUZIA-CONOR) 0.8 mg tablet tamsulosin 2020-0 Yes Take by Uni vers 0.4 mg 24 5-28 mouth ity of hr capsule 22:33: daily. [place] [address] Medical Branch zolpidem 10 2020-0 Yes 10mg Take 10 mg Univers mg tablet 5-28 by mouth ity of 22:33: at bedtime [place] as needed Medical for Branch Insomnia. diazePAM 2020-0 Yes 5mg Take 5 mg Univ ers (VALIUM) 5 5-28 by mouth ity o f mg tablet 22:33: at [place] [address] bedtime. Medical Branch amlodipine 2020-0 Yes 1{tbl} Take 1 Uni vers besylate/be 5-28 tablet by ity of nazepril 22:33: mouth 3 [place] (AMLODIPINE 10 (three) Medic al -BENAZEPRIL times Branch ORAL) daily. carvedilol 2020-0 Yes 6.25mg Take 6.25 Univers 6.25 mg 5-28 mg by ity of tablet 22:33: mouth 2 [place] 10 (two) Medical times Branch daily with meals. furosemide 2020-0 Yes 80mg Take 80 mg U nivers (LASIX) 80 5-28 by mouth 3 ity of mg tablet 22:33: (three) [place] 10 times Medical daily. Branch hydralAZINE 2020-0 Yes 50mg Take 50 mg Univers 50 mg 5-28 by mouth ity of tablet 22:33: every 8 [place] 10 (eight) Medical hours. Branch calcium 2020-0 Yes 2001mg Take 2,001 Un seun acetate 667 5-28 mg by ity of mg capsule 22:33: mouth 3 [place] 10 (three) Medical times Branch daily with meals. vitamin b 2020-0 Yes 1{tbl} Take 1 Univ ers complex-vit 5-28 tablet by ity of villatoro 22:33: mouth [place] c-folic 10 daily. Medical acid Branch (FAUZIA-CONOR) 0.8 mg tablet tamsulosin 2020-0 Yes Take by Uni vers 0.4 mg 24 5-28 mouth ity of hr capsule 22:33: daily. [place] 10 Medical Branch zolpidem 10 2020-0 Yes 10mg Take 10 mg Univers mg tablet 5-28 by mouth ity of 22:33: at bedtime [place] 10 as needed Medical for Branch Insomnia. diazePAM 2020-0 Yes 5mg Take 5 mg Univ ers (VALIUM) 5 5-28 by mouth ity o f mg tablet 22:33: at [place] 10 bedtime. Medical Branch amlodipine 2020-0 Yes 1{tbl} Take 1 Uni vers besylate/be 5-28 tablet by ity of nazepril 22:33: mouth 3 [place] (AMLODIPINE 10 (three) Medic al -BENAZEPRIL times Branch ORAL) daily. carvedilol 2020-0 Yes 6.25mg Take 6.25 Univers 6.25 mg 5-28 mg by ity of tablet 22:33: mouth 2 [place] 10 (two) Medical times Branch daily with meals. furosemide 2020-0 Yes 80mg Take 80 mg U nivers (LASIX) 80 5-28 by mouth 3 ity of mg tablet 22:33: (three) [place] 10 times Medical daily. Branch hydralAZINE 2020-0 Yes 50mg Take 50 mg Univers 50 mg 5-28 by mouth ity of tablet 22:33: every 8 [place] 10 (eight) Medical hours. Branch calcium 2020-0 Yes 2001mg Take 2,001 Un seun acetate 667 5-28 mg by ity of mg capsule 22:33: mouth 3 [place] 10 (three) Medical times Branch daily with meals. vitamin b 2020-0 Yes 1{tbl} Take 1 Univ ers complex-vit 5- tablet by ity of villatoro 22:33: mouth [place] c-folic 10 daily. Medical acid Branch (FAUZIA-CONOR) 0.8 mg tablet tamsulosin 2020-0 Yes Take by Uni vers 0.4 mg 24 5-28 mouth ity of hr capsule 22:33: daily. [place] 10 Medical Branch zolpidem 10 2020-0 Yes 10mg Take 10 mg Univers mg tablet -28 by mouth ity of 22:33: at bedtime [place] [address] as needed Medical for Branch Insomnia. diazePAM 2020-0 Yes 5mg Take 5 mg Univ ers (VALIUM) 5 - by mouth ity o f mg tablet 22:33: at [place] [address] bedtime. Medical Branch oxyCODONE-a 2019-0 2020- No 1{tbl} 1 tablet, [facility] cetaminophe 03-05- Oral, ity of n 22:00: 21:09 ONCE, 1 [place] (PERCOCET) 00 :00 dose, [place] Medi sony 5-325 mg 03/05/20 at Bran h per tablet 1700, 1 tablet Routine, PACU lactated 2019-0 Yes 1000mL at 75 Univer s ringers IV 5-28 mL/hr, ity of infusion 20:15: 1,000 mL, [place] 1,000 mL 00 IV Medical Infusion, Branch CONTINUOUS , Starting [place] 03/05/20 at 1515, Until Discontinu ed, Routine, PACU HYDROmorpho 2019-0 2019- No .2mg 0.2 mg, Un seun ne 03-05 Slow IV ity of (DILAUDID) 20:03: 21:02 Push, [place] injection 31 :00 Q5MIN PRN, Medi sony 0.2 mg 10 doses, Branch Starting [place] 03/05/20 at 1503, Until Discontinu ed, Routine, Pain (scale 7-10), PACU
Us e approved by (Faculty): PACU USE -ANESTHESI A SERVICE-HY DROMORPHON E INJECTIONS FENTanyl PF 2019-0 2020- No 25ug 25 mcg, Un seun (SUBLIMAZE 03-05- Slow IV ity o f (PF)) 20:03: 21:37 Push, [place] injection 29 :00 Q5MIN PRN, Medi sony 25 mcg 4 doses, Branch Starting [place] 03/05/20 at 1503, Until Discontinu ed, Routine, Pain (scale 4-6), PACU ondansetron 2020-0 Yes 4mg 4 mg, Slow Univers (ZOFRAN 5-28 IV Push, ity of (PF)) 20:03: PRN, 1 [place] injection 4 25 dose, Medical mg Starting Branch [place] 03/05/20 at 1503, Until Discontinu ed, Routine, Nausea and Vomiting (N/V), PACU traMADol 2020-0 Yes 50mg 50 mg, Univers (ULTRAM) 5-28 Oral, PRN, ity o f tablet 50 19:55: 1 dose, [place] mg 27 Starting Medical [place] Branch 03/05/20 at 1455, Until Discontinu ed, Routine, Pain (scale 4-6), DSU Recovery HYDROcodone 2020-0 Yes 1{tbl} 1 tablet, Univers -acetaminop 5-28 Oral, PRN, it y of hen (NORCO 19:55: 1 dose, [place] 5) 5-325 mg 27 Starting Medi sony tablet 1 [place] Branch tablet 03/05/20 at 1455, Until Discontinu ed, Routine, Pain (scale 7-10), DSU Recovery bupivacaine 2020-0 Yes PRN, Univer s (preserv 5-28 Starting ity of free) 19:16: [place] (SENSORCAIN 00 03/05/20 at [facility]) 0.25 1416, Branch % (2.5 Until mg/mL) Discontinu injection ed, Routine, Intra-op oxyCODONE-a 2020-0 Yes [id number] 1{tbl} Take 1 Univers cetaminophe 5-28 tablet by ity of n 00:00: mouth [place] (PERCOCET) 00 every 6 Medica l 5-325 mg (six) Branch per tablet hours as needed for Pain (scale 4-6) or Pain (scale 7-10). oxyCODONE-a 2020-0 Yes [id number] 1{tbl} Take 1 Univers cetaminophe 5-28 tablet by ity of n 00:00: mouth [place] (PERCOCET) 00 every 6 Medica l 5-325 mg (six) Branch per tablet hours as needed for Pain (scale 4-6) or Pain (scale 7-10). oxyCODONE-a 2019-0 Yes [id number] 1{tbl} Take 1 Univers cetaminophe 5-28 tablet by ity of n 00:00: mouth [place] (PERCOCET) 00 every 6 Medica l 5-325 mg (six) Branch per tablet hours as needed for Pain (scale 4-6) or Pain (scale 7-10). oxyCODONE-a 2019-0 Yes [id number] 1{tbl} Take 1 Univers cetaminophe 5-28 tablet by ity of n 00:00: mouth [place] (PERCOCET) 00 every 6 Medica l 5-325 mg (six) Branch per tablet hours as needed for Pain (scale 4-6) or Pain (scale 7-10). oxyCODONE-a 2019-0 Yes [id number] 1{tbl} Take 1 Univers cetaminophe 5-28 tablet by ity of n 00:00: mouth [place] (PERCOCET) 00 every 6 Medica l 5-325 mg (six) Branch per tablet hours as needed for Pain (scale 4-6) or Pain (scale 7-10). oxyCODONE-a 2019-0 Yes [id number] 1{tbl} Take 1 Univers cetaminophe 5-28 tablet by ity of n 00:00: mouth [place] (PERCOCET) 00 every 6 Medica l 5-325 mg (six) Branch per tablet hours as needed for Pain (scale 4-6) or Pain (scale 7-10). oxyCODONE-a 2019-0 Yes [id number] 1{tbl} Take 1 Univers cetaminophe 5-28 tablet by ity of n 00:00: mouth [place] (PERCOCET) 00 every 6 Medica l 5-325 mg (six) Branch per tablet hours as needed for Pain (scale 4-6) or Pain (scale 7-10). oxyCODONE-a 2019-0 Yes [id number] 1{tbl} Take 1 Univers cetaminophe 5-28 tablet by ity of n 00:00: mouth [place] (PERCOCET) 00 every 6 Medica l 5-325 mg (six) Branch per tablet hours as needed for Pain (scale 4-6) or Pain (scale 7-10). oxyCODONE-a 2019-0 Yes [id number] 1{tbl} Take 1 Univers cetaminophe 5-28 tablet by ity of n 00:00: mouth [place] (PERCOCET) 00 every 6 Medica l 5-325 mg (six) Branch per tablet hours as needed for Pain (scale 4-6) or Pain (scale 7-10). oxyCODONE-a 2019-0 Yes [id number] 1{tbl} Take 1 Univers cetaminophe 5-28 tablet by ity of n 00:00: mouth [place] (PERCOCET) 00 every 6 Medica l 5-325 mg (six) Branch per tablet hours as needed for Pain (scale 4-6) or Pain (scale 7-10). oxyCODONE-a 2019-0 Yes [id number] 1{tbl} Take 1 [facility] cetaminophe 5-28 tablet by ity of n 00:00: mouth [place] (PERCOCET) 00 every 6 Medica l 5-325 mg (six) Branch per tablet hours as needed for Pain (scale 4-6) or Pain (scale 7-10). oxyCODONE-a 2019-0 Yes [id number] 1{tbl} Take 1 [facility] cetaminophe 5-28 tablet by [facility]y of n 00:00: mouth [place] (PERCOCET) 00 every 6 Medica l 5-325 mg (six) Branch per tablet hours as needed for Pain (scale 4-6) or Pain (scale 7-10). oxyCODONE-a 2019-0 Yes [id number] 1{tbl} Take 1 [facility] cetaminophe 5-28 tablet by ity of n 00:00: mouth [place] (PERCOCET) 00 every 6 Medica l 5-325 mg (six) Branch per tablet hours as needed for Pain (scale 4-6) or Pain (scale 7-10). oxyCODONE-a 2019-0 Yes [id number] 1{tbl} Take 1 [facility] cetaminophe 5-28 tablet by ity of n 00:00: mouth [place] (PERCOCET) 00 every 6 Medica l 5-325 mg (six) Branch per tablet hours as needed for Pain (scale 4-6) or Pain (scale 7-10). oxyCODONE-a Yes [id number] 1{tbl} Take 1 [facility] cetaminophe 5-28 tablet by ity of n 00:00: mouth [place] (PERCOCET) 00 every 6 Medica l 5-325 mg (six) Branch per tablet hours as needed for Pain (scale 4-6) or Pain (scale 7-10). oxyCODONE-a 2019- Yes [id number] 1{tbl} Take 1 [facility] cetaminophe 5-28 tablet by ity of n 00:00: mouth [place] (PERCOCET) 00 every 6 Medica l 5-325 mg (six) Branch per tablet hours as needed for Pain (scale 4-6) or Pain (scale 7-10). oxyCODONE-a Yes [id number] 1{tbl} Take 1 [facility] cetaminophe 5-28 tablet by ity of n 00:00: mouth [place] (PERCOCET) 00 every 6 Medica l 5-325 mg (six) Branch per tablet hours as needed for Pain (scale 4-6) or Pain (scale 7-10). oxyCODONE-a Yes [id number] 1{tbl} Take 1 [facility] cetaminophe 5-28 tablet by ity of n 00:00: mouth [place] (PERCOCET) 00 every 6 Medica l 5-325 mg (six) Branch per tablet hours as needed for Pain (scale 4-6) or Pain (scale 7-10). acetaminoph 2020- No [id number] 650mg Take 2 [facility] en 5-28 05-29 tablets by ity of (TYLENOL) 00:00: 04:59 mouth [place] 325 mg 00 :00 every 6 Medical tablet (six) Branch hours as needed for Pain (scale 1-3). acetaminoph No [id number] 650mg Take 2 [facility] en 5-28 05-29 tablets by ity of (TYLENOL) 00:00: 04:59 mouth [place] 325 mg 00 :00 every 6 Medical tablet (six) Branch hours as needed for Pain (scale 1-3). acetaminoph No [id number] 650mg Take 2 [facility] en 5-28 05-29 tablets by ity of (TYLENOL) 00:00: 04:59 mouth [place] 325 mg 00 :00 every 6 Medical tablet (six) Branch hours as needed for Pain (scale 1-3). acetaminoph No [id number] 650mg Take 2 [facility] en 5-28 05-29 tablets by ity of (TYLENOL) 00:00: 04:59 mouth [place] 325 mg 00 :00 every 6 Medical tablet (six) Branch hours as needed for Pain (scale 1-3). acetaminoph [id number] 650mg Take 2 [facility] en 5-28 05-29 tablets by ity of (TYLENOL) 00:00: 04:59 mouth [place] 325 mg 00 :00 every 6 Medical tablet (six) Branch hours as needed for Pain (scale 1-3). acetaminoph [id number] 650mg Take 2 [facility] en 5-28 05-29 tablets by ity of (TYLENOL) 00:00: 04:59 mouth [place] 325 mg 00 :00 every 6 Medical tablet (six) Branch hours as needed for Pain (scale 1-3). acetaminoph No [id number] 650mg Take 2 [facility] en 5-28 05-29 tablets by ity of (TYLENOL) 00:00: 04:59 mouth [place] 325 mg 00 :00 every 6 Medical tablet (six) Branch hours as needed for Pain (scale 1-3). acetaminoph [id number] 650mg Take 2 [facility] en 5-28 05-29 tablets by ity of (TYLENOL) 00:00: 04:59 mouth [place] 325 mg 00 :00 every 6 Medical tablet (six) Branch hours as needed for Pain (scale 1-3). acetaminoph 2020- No [id number] 650mg Take 2 [facility] en 5-28 05-29 tablets by ity of (TYLENOL) 00:00: 04:59 mouth [place] 325 mg 00 :00 every 6 Medical tablet (six) Branch hours as needed for Pain (scale 1-3). acetaminoph 2020- [id number] 650mg Take 2 [facility] en 5-28 05-29 tablets by ity of (TYLENOL) 00:00: 04:59 mouth [place] 325 mg 00 :00 every 6 Medical tablet (six) Branch hours as needed for Pain (scale 1-3). acetaminoph No [id number] 650mg Take 2 [facility] en 5-28 05-29 tablets by ity of (TYLENOL) 00:00: 04:59 mouth [place] 325 mg 00 :00 every 6 Medical tablet (six) Branch hours as needed for Pain (scale 1-3). acetaminoph No [id number] 650mg Take 2 [facility] en 5-28 05-29 tablets by ity of (TYLENOL) 00:00: 04:59 mouth [place] 325 mg 00 :00 every 6 Medical tablet (six) Branch hours as needed for Pain (scale 1-3). acetaminoph No [id number] 650mg Take 2 [facility] en 5-28 05-29 tablets by ity of (TYLENOL) 00:00: 04:59 mouth [place] 325 mg 00 :00 every 6 Medical tablet (six) Branch hours as needed for Pain (scale 1-3). acetaminoph No [id number] 650mg Take 2 [facility] en 5-28 05-29 tablets by ity of (TYLENOL) 00:00: 04:59 mouth [place] 325 mg 00 :00 every 6 Medical tablet (six) Branch hours as needed for Pain (scale 1-3). acetaminoph No [id number] 650mg Take 2 [facility] en 5-28 05-29 tablets by ity of (TYLENOL) 00:00: 04:59 mouth [place] 325 mg 00 :00 every 6 Medical tablet (six) Branch hours as needed for Pain (scale 1-3). acetaminoph No [id number] 650mg Take 2 [facility] en 5-28 05-29 tablets by ity of (TYLENOL) 00:00: 04:59 mouth [place] 325 mg 00 :00 every 6 Medical tablet (six) Branch hours as needed for Pain (scale 1-3). acetaminoph 2020- No [id number] 650mg Take 2 [facility] en 5-28 05-29 tablets by ity of (TYLENOL) 00:00: 04:59 mouth [place] 325 mg 00 :00 every 6 Medical tablet (six) Branch hours as needed for Pain (scale 1-3). acetaminoph No [id number] 650mg Take 2 [facility] en 5-28 05-29 tablets by ity of (TYLENOL) 00:00: 04:59 mouth [place] 325 mg 00 :00 every 6 Medical tablet (six) Branch hours as needed for Pain (scale 1-3). acetaminoph 2020- No [id number] 650mg Take 2 [facility] en 03-05- tablets by ity of (TYLENOL) 00:00: 00:00 mouth [place] 325 mg 00 :00 every 6 Medical tablet (six) Branch hours as needed for Pain (scale 1-3). oxyCODONE-a 2019- 2020- No [id number] 1{tbl} Take 1 [facility] cetaminophe 03-05 tablet by it y of n 00:00: 00:00 mouth [place] (PERCOCET) 00 :00 every 6 Medica l 5-325 mg (six) Branch per tablet hours as needed for Pain (scale 4-6) or Pain (scale 7-10). traMADol 50 2019-2019- No [id number] 50mg Take 1 [facility] mg tablet 03-05 tablet by ity of 00:00: 00:00 mouth [place] 00 :00 every 6 Medical (six) Branch hours as needed for Pain (scale 4-6) or Pain (scale 7-10) for up to 7 days. Acetaminoph Yes 1 tab, PO, Memoria en 300 MG / 4-27 Q6H, X 3 l Codeine 22:40: day, # 12 [place] nn Phosphate 00 tab, 0 30 MG Oral Refill(s) Tablet [Tylenol with Codeine #3] Acetaminoph Yes 1 tab, PO, Memoria en 300 MG / 4-27 Q6H, X 3 l Codeine 22:40: day, # 12 [place] nn Phosphate 00 tab, 0 30 MG Oral Refill(s) Tablet [Tylenol with Codeine #3] Acetaminoph Yes 1 tab, PO, Memoria en 300 MG / 4-27 Q6H, X 3 l Codeine 22:40: day, # 12 [place] nn Phosphate 00 tab, 0 30 MG Oral Refill(s) Tablet [Tylenol with Codeine #3] Dilaudid No Notes: Memoria 4-27 Same as: l 22:39: Dilaudid [place] 00 Dilaudid 2019-0 No Notes: Memoria 02-02 Same as: l 22:39: Dilaudid [place] 00 Dilaudid 2019-0 No Notes: Memoria 02-02 Same as: l 22:39: Dilaudid [place] 00 Hydralazine 2019-0 No 50 mg, 1 Me moria Hydrochlori 4-27 tab, l de 50 MG 22:20: Route: PO, Her meeks Oral Tablet 00 Drug form: TAB, ONCE, Dosing Weight 104.545, kg, Start date: 02/03/20 17:20:00 CDT, Stop date: 02/03/20 17:20:00 CDT Hydralazine 2019-0 No 50 mg, 1 Me moria Hydrochlori 4-27 tab, l de 50 MG 22:20: Route: PO, Her meeks Oral Tablet 00 Drug form: TAB, ONCE, Dosing Weight 104.545, kg, Start date: 02/03/20 17:20:00 CDT, Stop date: 02/03/20 17:20:00 CDT Hydralazine 2019-0 No 50 mg, 1 Me moria Hydrochlori 4-27 tab, l de 50 MG 22:20: Route: PO, Her meeks Oral Tablet 00 Drug form: TAB, ONCE, Dosing Weight 104.545, kg, Start date: 02/03/20 17:20:00 CDT, Stop date: 02/03/20 17:20:00 CDT Zofran 2019-0 No Notes: Memoria 02-02 (Same as: l 20:19: Zofran) [place] 00 MEDICATION WASTE Product Size: 4 mg Product Wasted: ___ mg Zofran 2019-0 No Notes: Memoria 02-02 (Same as: l 20:19: Zofran) [place] 00 MEDICATION WASTE Product Size: 4 mg Product Wasted: ___ mg Zofran 2019-0 No Notes: Memoria 02-02 (Same as: l 20:19: Zofran) [place] 00 MEDICATION WASTE Product Size: 4 mg Product Wasted: ___ mg Morphine 2019-0 No Notes: Memoria 02-02 (Same l 20:18: as:Macarioin [place] 00 e Sulfate) Morphine 2020-0 No Notes: Memoria (Same l 20:18: as:MORPhin [place] 00 e Sulfate) Morphine No Notes: Memoria 02-02 (Same l 20:18: as:MORPhin [place] 00 e Sulfate) Acetaminoph Yes 1-2 tab, Me moria en 325 MG / 1-28 PO, Q4-6H, l Hydrocodone 20:46: PRN Pain, H ermann Bitartrate 00 X 5 day, # 10 MG Oral 20 tab, 0 Tablet Refill(s), [[facility]: ] [facility] Acetaminoph Yes 1-2 tab, Me moria en 325 MG / 1-28 PO, Q4-6H, l Hydrocodone 20:46: PRN Pain, H ermann Bitartrate 00 X 5 day, # 10 MG Oral 20 tab, 0 Tablet Refill(s), [[facility]: ] [facility] Acetaminoph Yes 1-2 tab, Me moria en 325 MG / 1-28 PO, Q4-6H, l Hydrocodone 20:46: PRN Pain, H ermann Bitartrate 00 X 5 day, # 10 MG Oral 20 tab, 0 Tablet Refill(s), [[facility]: ] [facility] vancomycin No 2001 mg: Me moria - infuse l 19:00: over 2.5 [place] 00 hours For adult patients only: Round to nearest 250 mg per Medical Staff approval MEDICATION WASTE Product Size: 1000 mg Product Wasted: ___ mg Amlodipine No 1 cap, Memor ia 10 MG / 11-04 Route: PO, l Benazepril 19:00: Drug Form: H ermann hydrochlori 00 CAP, de 20 MG Dosing Oral Weight Capsule 99.091, kg, TID, Start date: 11/04/19 13:00:00 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, Duration: 30 day, Stop date: 12/04/19 9:00:00 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 amLODIPine No Notes: Memor ia 11-04 (Same as: l 19:00: Norvasc) [place] 00 lisinopril No Notes: Memor ia 11-04 (Same as: l 19:00: Prinivil, [place] 00 Zestril) vancomycin 2020-0 No 2000 mg: Me moria - infuse l 19:00: over 2.5 [place] 00 [...] 99.091, kg, TID, Start date: 11/04/19 13:00:00 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, Duration: 30 day, Stop date: 12/04/19 9:00:00 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 amLODIPine 2019-0 No Notes: Memor ia 11-04 (Same as: l 19:00: Norvasc) lisinopril No Notes: Memor ia 11-04 (Same as: l 19:00: Prinivil, [place] Zestril) vancomycin 2019-0 No 2000 mg: Me moria - infuse l 19:00: over 2.5 [place] 00 hours For adult patients only: Round to nearest 250 mg per Medical Staff approval MEDICATION WASTE Product Size: 1000 mg Product Wasted: ___ mg Amlodipine 2019-0 No 1 cap, Memor ia 10 MG / 11-04 Route: PO, l Benazepril 19:00: Drug Form: H ermann hydrochlori 00 CAP, de 20 MG Dosing Oral Weight Capsule 99.091, kg, TID, Start date: 11/04/19 13:00:00 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, Duration: 30 day, Stop date: 12/04/19 9:00:00 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 amLODIPine 0 No Notes: Memor ia 11-04 (Same as: l 19:00: Norvasc) lisinopril 0 No Notes: Memor ia 11-04 (Same as: l 19:00: Prinivil, [place] 00 Zestril) Amlodipine 2019-0 Yes 1 cap, PO, M emoria 10 MG / 11-04 TID, 0 l Benazepril 16:40: Refill(s) He rmann hydrochlori 00 de 20 MG Oral Capsule Amlodipine 2020-0 Yes 1 cap, PO, M emoria 10 MG / 1-27 TID, 0 l Benazepril 16:40: Refill(s) He rmann hydrochlori 00 de 20 MG Oral Capsule Amlodipine 2020-0 Yes 1 cap, PO, M emoria 10 MG / 1-27 TID, 0 l Benazepril 16:40: Refill(s) He rmann hydrochlori 00 de 20 MG Oral Capsule Potassium 2020-0 No Notes: Memori a Chloride - (Same as: l 16:23: K-Dur 20) [place] "Do Not Crush" Give with food and full glass of water For patients unable to swallow tablet, dissolve in one half glass of water. Allow about 2 minutes for the tablets to disintegra te. Stir before giving to prepare slurry and administer . Please exclude Patient s with feeding tube less than 14 [place] (Dobhoff, J-tube etc) and pediatric and patients. Potassium 2019-0 No Notes: Memori a Chloride - (Same as: l 16: K-Dur 20) [place] 00 "Do Not Crush" Give with food and full glass of water For patients unable to swallow tablet, dissolve in one half glass of water. Allow about 2 minutes for the tablets to disintegra te. Stir before giving to prepare slurry and administer . Please exclude Patient s with feeding tube less than 14 [place] (Dobhoff, J-tube etc) and pediatric and patients. Potassium 2019-0 No Notes: Memori a Chloride - (Same as: l 16:: K-Dur 20) [place] "Do Not Crush" Give with food and full glass of water For patients unable to swallow tablet, dissolve in one half glass of water. Allow about 2 minutes for the tablets to disintegra te. Stir before giving to prepare slurry and administer . Please exclude Patient s with feeding tube less than 14 [place] (Dobhoff, J-tube etc) and pediatric and patients. epoetin 2019-0 No Notes: Memoria franca 11-04 (Same as: l 15:00: Procrit) [place] 00 epoetin [place] [id number] unit/1 ml VL. For dialysis use only. (Procrit) WASTE: F/P - Red; E -Red MEDICATION WASTE Product Size: 37568 unit Product Wasted: ___ unit epoetin 2020-0 No Notes: Memoria franca 11-04 (Same as: l 15:00: Procrit) [place] 00 epoetin [place] [id number] unit/1 ml VL. For dialysis use only. (Procrit) WASTE: F/P - Red; E -Red MEDICATION WASTE Product Size: 63629 unit Product Wasted: ___ unit epoetin 2020-0 No Notes: Memoria franca 11-04 (Same as: l 15:00: Procrit) [place] 00 epoetin [place] 33506 unit/1 ml VL. For dialysis use only. (Procrit) WASTE: F/P - Red; E -Red MEDICATION WASTE Product Size: 24955 unit Product Wasted: ___ unit Lisinopril 2020-0 No Notes: Memor ia 11-04 (Same as: l 14:47: Prinivil, [place] 00 Zestril) Lisinopril 2020-0 No Notes: Memor ia 11-04 (Same as: l 14:47: Prinivil, [place] 00 Zestril) Lisinopril 2020-0 No Notes: Memor ia 11-04 (Same as: l 14:47: Prinivil, [place] 00 Zestril) Vancomycin 2020-0 No 2000 mg: Me moria - infuse l 14:40: over 2.5 [place] 00 hours For adult patients only: Round to nearest 250 mg per Medical Staff approval MEDICATION WASTE Product Size: 1000 mg Product Wasted: ___ mg Vancomycin 2020-0 No 2000 mg: Me moria - infuse l 14:40: over 2.5 [place] 00 hours For adult patients only: Round to nearest 250 mg per Medical Staff approval MEDICATION WASTE Product Size: 1000 mg Product Wasted: ___ mg Vancomycin 2020-0 No 2000 mg: Me moria - infuse l 14:40: over 2.5 [place] 00 hours For adult patients only: Round to nearest 250 mg per Medical Staff approval MEDICATION WASTE Product Size: 1000 mg Product Wasted: ___ mg Lasix 2020-0 No Notes: Memoria 1- (Same as: l 23:00: Lasix) [place] 00 May cause GI upset. Give with food or milk. Lasix No Notes: Memoria 1- (Same as: l 23:00: Lasix) [place] 00 May cause GI upset. Give with food or milk. Lasix No Notes: Memoria 1- (Same as: l 23:00: Lasix) [place] 00 [...] - (Same as: l 15:32: K-Dur 20) "Do Not Crush" Give with food and full glass of water For patients unable to swallow tablet, dissolve in one half glass of water. Allow about 2 minutes for the tablets to disintegra te. Stir before giving to prepare slurry and administer . Please exclude Patient s with feeding tube less than 14 [place] (Dobhoff, J-tube etc) and pediatric and patients. Epogen No Notes: Memoria 1- (Same as: l 15:32: Procrit) [place] 00 epoetin [place] 89031 unit/1 ml VL. For dialysis use only. (Procrit) WASTE: F/P - Red; E -Red MEDICATION WASTE Product Size: 32617 unit Product Wasted: ___ unit Potassium No Notes: Memori a Chloride - [...] s with feeding tube less than 14 [place] (Dobhoff, J-tube etc) and pediatric and patients. Epogen No Notes: Memoria 11-03 (Same as: l 15:32: Procrit) [place] epoetin [place] 06203 unit/1 ml VL. For dialysis use only. (Procrit) WASTE: F/P - Red; E -Red MEDICATION WASTE Product Size: 28123 unit Product Wasted: ___ unit Potassium No Notes: Memori a Chloride 11-03 (Same as: l 1532: K-Dur 20) [place] "Do Not Crush" Give with food and full glass of water For patients unable to swallow tablet, dissolve in one half glass of water. Allow about 2 minutes for the tablets to disintegra te. Stir before giving to prepare slurry and administer . Please exclude Patient s with feeding tube less than 14 [place] (Dobhoff, J-tube etc) and pediatric and patients. Epogen No Notes: Memoria 11-03 (Same as: l 15:32: Procrit) [place] epoetin [place] 42066 unit/1 ml VL. For dialysis use only. (Procrit) WASTE: F/P - Red; E -Red MEDICATION WASTE Product Size: 40064 unit Product Wasted: ___ unit Dilaudid No Notes: Memoria - Same as: l 18:03: Dilaudid [place] Dilaudid No Notes: Memoria - Same as: l 18:03: Dilaudid [place] Dilaudid No Notes: Memoria -25 Same as: l 18:03: Dilaudid [place] heparin No 10,000 Memoria 1-25 unit, 10 l 02:00: mL, Route: [place] 00 DIALYSIS, Drug form: INJ, ONCALL, Dosing Weight 99.091, kg, Start date: 11/01/19 20:00:00 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, Duration: 1 doses or times, 0 heparin 2020-0 No 10,000 Memoria 1-25 unit, 10 l 02:00: mL, Route: [place] 00 DIALYSIS, Drug form: INJ, ONCALL, Dosing Weight 99.091, kg, Start date: 11/01/19 20:00:00 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, Duration: 1 doses or times, 0 heparin 2020-0 No 10,000 Memoria 1-25 unit, 10 l 02:00: mL, Route: [place] 00 DIALYSIS, Drug form: INJ, ONCALL, Dosing Weight 99.091, kg, Start date: 11/01/19 20:00:00 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, Duration: 1 doses or times, 0 vancomycin 2019-0 No Notes: Memor ia + Sodium 1-24 TIME l Chloride 20:00: CRITICAL [place] nn 0.9% IV 100 00 MEDICATION mL (Same As: Vancocin) For adult patients only: Round to nearest 250 mg per Medical Staff approval vancomycin 0 No Notes: Memor ia + Sodium 1-24 TIME l Chloride 20:00: CRITICAL [place] nn 0.9% IV 100 00 MEDICATION mL (Same As: Vancocin) For adult patients only: Round to nearest 250 mg per Medical Staff approval vancomycin 2019-0 No Notes: Memor ia + Sodium 1-24 TIME l Chloride 20:00: CRITICAL [place] nn 0.9% IV 100 00 MEDICATION mL (Same As: Vancocin) For adult patients only: Round to nearest 250 mg per Medical Staff approval potassium 2019-0 No Notes: Memori a chloride 1-24 (Same as: l 19:51: K-Dur 20) [place] 00 "Do Not Crush" Give with food and full glass of water For patients unable to swallow tablet, dissolve in one half glass of water. Allow about 2 minutes for the tablets to disintegra te. Stir before giving to prepare slurry and administer . Please exclude Patient s with feeding tube less than 14 [place] (Dobhoff, J-tube etc) and pediatric and patients. potassium 2020-0 No Notes: Memori a chloride 1-24 (Same as: l 19:51: K-Dur 20) [place] 00 "Do Not Crush" Give with food and full glass of water For patients unable to swallow tablet, dissolve in one half glass of water. Allow about 2 minutes for the tablets to disintegra te. Stir before giving to prepare slurry and administer . Please exclude Patient s with feeding tube less than 14 [place] (Dobhoff, J-tube etc) and pediatric and patients. potassium 2020-0 No Notes: Memori a chloride 1-24 (Same as: l 19:51: K-Dur 20) [place] 00 "Do Not Crush" Give with food and full glass of water For patients unable to swallow tablet, dissolve in one half glass of water. Allow about 2 minutes for the tablets to disintegra te. Stir before giving to prepare slurry and administer . Please exclude Patient s with feeding tube less than 14 [place] (Dobhoff, J-tube etc) and pediatric and patients. Dilaudid 2020-0 No Notes: Memoria 1-24 Same as: l 18:47: Dilaudid [place] 00 Dilaudid 2019-0 No Notes: Memoria 1-24 Same as: l 18:47: Dilaudid [place] 00 Dilaudid 2019-0 No Notes: Memoria 1-24 Same as: l 18:47: Dilaudid [place] 00 Potassium 2019-0 No Notes: Memori a Chloride 1-24 (Same as: l 16:00: K-Dur 20) [place] 00 "Do Not Crush" Give with food and full glass of water For patients unable to swallow tablet, dissolve in one half glass of water. Allow about 2 minutes for the tablets to disintegra te. Stir before giving to prepare slurry and administer . Please exclude Patient s with feeding tube less than 14 [place] (Dobhoff, J-tube etc) and pediatric and patients. Potassium 2020-0 No Notes: Memori a Chloride 1-24 (Same as: l 16:00: K-Dur 20) [place] 00 "Do Not Crush" Give with food and full glass of water For patients unable to swallow tablet, dissolve in one half glass of water. Allow about 2 minutes for the tablets to disintegra te. Stir before giving to prepare slurry and administer . Please exclude Patient s with feeding tube less than 14 [place] (Dobhoff, J-tube etc) and pediatric and patients. [...] s with feeding tube less than 14 [place] (Dobhoff, J-tube etc) and pediatric and patients. heparin 2020-0 No 10,000 Memoria 1-24 unit, 10 l 01:00: mL, Route: [place] 00 DIALYSIS, Drug form: INJ, ONCALL, Dosing Weight 99.091, kg, Start date: 10/31/19 19:00:00 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, Duration: 1 doses or times, 0 heparin 2020-0 No 10,000 Memoria 1-24 unit, 10 l 01:00: mL, Route: [place] 00 DIALYSIS, Drug form: INJ, ONCALL, Dosing Weight 99.091, kg, Start date: 10/31/19 19:00:00 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, Duration: 1 doses or times, 0 heparin 2020-0 No 10,000 Memoria 1-24 unit, 10 l 01:00: mL, Route: DIALYSIS, Drug form: INJ, ONCALL, Dosing Weight 99.091, kg, Start date: 10/31/19 19:00:00 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, Duration: 1 doses or times, 0 Albuterol 2020-0 No Notes: Memori a 0.833 MG/ML - (Same as: :: Duoneb) [place] Ipratropium 00 [place] 0.167 MG/ML Inhalant Solution [DuoNeb] Albuterol 2020-0 No Notes: Memori a 0.833 MG/ML -23 (Same as: :: Duoneb) [place] Ipratropium 00 [place] 0.167 MG/ML Inhalant Solution [DuoNeb] Albuterol 2020-0 No Notes: Memori a 0.833 MG/ML 1-23 (Same as: :: Duoneb) [place] Ipratropium 00 [place] 0.167 MG/ML Inhalant Solution [DuoNeb] Potassium 2020-0 No Notes: Memori a Chloride -23 (Same as: l 11:58: K-Dur 20) [place] 00 "Do Not Crush" Give with food and full glass of water For patients unable to swallow tablet, dissolve in one half glass of water. Allow about 2 minutes for the tablets to disintegra te. Stir before giving to prepare slurry and administer . Please exclude Patient s with feeding tube less than 14 [place] (Dobhoff, J-tube etc) and pediatric and patients. [...] s with feeding tube less than 14 [place] (Dobhoff, J-tube etc) and pediatric and patients. [...] s with feeding tube less than 14 [place] (Dobhoff, J-tube etc) and pediatric and patients. heparin 2020-0 No 10,000 Memoria 1-23 unit, 10 l 05:00: mL, Route: [place] 00 DIALYSIS, Drug form: INJ, ONCALL, Dosing Weight 99.091, kg, Start date: 10/30/19 23:00:00 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, Duration: 1 doses or times, 0 heparin 2020-0 No 10,000 Memoria 1-23 unit, 10 l 05:00: mL, Route: [place] 00 DIALYSIS, Drug form: INJ, ONCALL, Dosing Weight 99.091, kg, Start date: 10/30/19 23:00:00 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, Duration: 1 doses or times, 0 heparin 2020-0 No 10,000 Memoria 1-23 unit, 10 l 05:00: mL, Route: [place] 00 DIALYSIS, Drug form: INJ, ONCALL, Dosing Weight 99.091, kg, Start date: 10/30/19 23:00:00 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, Duration: 1 doses or times, 0 Potassium 2020-0 No Notes: Memori a Chloride 1-23 (Same as: l 04:05: K-Dur 20) [place] 00 "Do Not Crush" Give with food and full glass of water For patients unable to swallow tablet, dissolve in one half glass of water. Allow about 2 minutes for the tablets to disintegra te. Stir before giving to prepare slurry and administer . Please exclude Patient s with feeding tube less than 14 [place] (Dobhoff, J-tube etc) and pediatric and patients. Potassium 2020-0 No Notes: Memori a Chloride 1-23 (Same as: l 04:05: K-Dur 20) [place] 00 "Do Not Crush" Give with food and full glass of water For patients unable to swallow tablet, dissolve in one half glass of water. Allow about 2 minutes for the tablets to disintegra te. Stir before giving to prepare slurry and administer . Please exclude Patient s with feeding tube less than 14 [place] (Dobhoff, J-tube etc) and pediatric and patients. Potassium 2020-0 No Notes: Memori a Chloride 1-23 (Same as: l 04:05: K-Dur 20) [place] 00 "Do Not Crush" Give with food and full glass of water For patients unable to swallow tablet, dissolve in one half glass of water. Allow about 2 minutes for the tablets to disintegra te. Stir before giving to prepare slurry and administer . Please exclude Patient s with feeding tube less than 14 [place] (Dobhoff, J-tube etc) and pediatric and patients. Tylenol 2020-0 No Notes: Do Memor ia 1-22 not exceed l 19:42: 4 gm/day. [place] 00 (Same as: Tylenol) Tylenol 2020-0 No Notes: Do Memor ia 1-22 not exceed l 19:42: 4 gm/day. [place] (Same as: Tylenol) Tylenol 2020-0 No Notes: Do Memor ia 1-22 not exceed l 19:42: 4 gm/day. [place] (Same as: Tylenol) Roxicodone 2020-0 No Notes: Memor ia 1-22 (Same as: l 19:41: Roxicodone ) Roxicodone 2020-0 No Notes: Memor ia 1-22 (Same as: l 19:41: Roxicodone ) Roxicodone 2020-0 No Notes: Memor ia 1-22 (Same as: l 19:41: Roxicodone [place] 00 ) Acetaminoph 2020-0 No 1 tab, Kojo lynn en 325 MG / 10-30 Route: PO, l Oxycodone 19:20: Drug Form: Jarad rider Hydrochlori 00 TAB, de 5 MG Dosing Oral Tablet Weight [Percocet 99.091, 5/325] kg, Q4H, PRN Pain Score 4-6, Start date: 10/30/19 13:20:00 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, Duration: 30 day, Stop date: 11/29/19 13:19:00 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 Acetaminoph 2020-0 No 1 tab, Kojo lynn en 325 MG / 10-30 Route: PO, l Oxycodone 19:20: Drug Form: Jarad rider Hydrochlori 00 TAB, de 5 MG Dosing Oral Tablet Weight [Percocet 99.091, 5/325] kg, Q4H, PRN Pain Score 4-6, Start date: 10/30/19 13:20:00 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, Duration: 30 day, Stop date: 11/29/19 13:19:00 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 Acetaminoph 2020-0 No 1 tab, Kojo lynn en 325 MG / 10-30 Route: PO, l Oxycodone 19:20: Drug Form: Jarad rider Hydrochlori 00 TAB, de 5 MG Dosing Oral Tablet Weight [Percocet 99.091, 5/325] kg, Q4H, PRN Pain Score 4-6, Start date: 10/30/19 13:20:00 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, Duration: 30 day, Stop date: 11/29/19 13:19:00 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 vancomycin 2000 mg: Me moria + Sodium 1-22 infuse l Chloride 18:00: over 2.5 [place] nn 0.9% IV 250 00 hours For mL adult patients only: Round to nearest 250 mg per Medical Staff approval MEDICATION WASTE Product Size: 1000 mg Product Wasted: ___ mg vancomycin 2000 mg: Me moria + Sodium 1-22 infuse l Chloride 18:00: over 2.5 [place] nn 0.9% IV 250 00 hours For mL adult patients only: Round to nearest 250 mg per Medical Staff approval MEDICATION WASTE Product Size: 1000 mg Product Wasted: ___ mg vancomycin 2000 mg: Me moria + Sodium 1-22 infuse l Chloride 18:00: over 2.5 [place] nn 0.9% IV 250 00 hours For mL adult patients only: Round to nearest 250 mg per Medical Staff approval MEDICATION WASTE Product Size: 1000 mg Product Wasted: ___ mg cefepime 2020-0 No Notes: Memoria 10-30 (Same As: l 16:00: Maxipime) [place] 00 MEDICATION WASTE Product Size: 1000 mg Product Wasted: ___ mg Vancomycin 2020-0 No 2001 mg: Me moria 10-30 infuse l 16:00: over 2.5 [place] 00 hours For adult patients only: Round to nearest 250 mg per Medical Staff approval MEDICATION WASTE Product Size: 1000 mg Product Wasted: ___ mg cefepime 2020-0 No Notes: Memoria 10-30 (Same As: l 16:00: Maxipime) [place] 00 MEDICATION WASTE Product Size: 1000 mg Product Wasted: ___ mg Vancomycin 2020-0 No 2001 mg: Me moria 10-30 infuse l 16:00: over 2.5 [place] 00 hours For adult patients only: Round to nearest 250 mg per Medical Staff approval MEDICATION WASTE Product Size: 1000 mg Product Wasted: ___ mg cefepime 2020-0 No Notes: Memoria 10-30 (Same As: l 16:00: Maxipime) [place] 00 MEDICATION WASTE Product Size: 1000 mg Product Wasted: ___ mg Vancomycin 2020-0 No 2000 mg: Me moria 10-30 infuse l 16:00: over 2.5 [place] 00 hours For adult patients only: Round to nearest 250 mg per Medical Staff approval MEDICATION WASTE Product Size: 1000 mg Product Wasted: ___ mg NIFEdipine 2020-0 No Notes: Memor ia 90 mg oral 10-30 (Same as: l tablet, 15:00: Adalat [place] extended 00 CC,Procard release ia XL) "Do Not Crush" "Avoid grapefruit and grapefruit juice" Fauzia-Conor 2019-0 No Fauiza-Conor Mem oria oral tablet 10-30 oral l 15:00: tablet, 1 [place] 00 tab, Route: PO, Daily, 10/30/19 9:00:00 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, Duration: 30 day, Stop date: 11/28/19 9:00:00 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 Nephro-Conor 2020-0 No Notes: Kojo lynn Rx 1-22 (Same as: l 15:00: Nephro-Vit [place] 00 e Rx and Diatx) Give with food. NIFEdipine No Notes: Memor ia 90 mg oral 1-22 (Same as: l tablet, 15:00: Adalat [place] extended 00 CC,Procard release ia XL) "Do Not Crush" "Avoid grapefruit and grapefruit juice" Fauzia-Conor 2020-0 No Fauzia-Conor Mem oria oral tablet -22 oral l 15:00: tablet, 1 [place] 00 tab, Route: PO, Daily, 10/30/19 9:00:00 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, Duration: 30 day, Stop date: 11/28/19 9:00:00 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 Nephro-Conor 2020-0 No Notes: Kojo lynn Rx -22 (Same as: l 15:00: Nephro-Vit [place] 00 e Rx and Diatx) Give with food. NIFEdipine No Notes: Memor ia 90 mg oral -22 (Same as: l tablet, 15:00: Adalat [place] extended 00 CC,Procard release ia XL) "Do Not Crush" "Avoid grapefruit and grapefruit juice" Fauzia-Conor 2020-0 No Fauzia-Conor Mem oria oral tablet -22 oral l 15:00: tablet, 1 [place] 00 tab, Route: PO, Daily, 10/30/19 9:00:00 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, Duration: 30 day, Stop date: 11/28/19 9:00:00 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 Nephro-Conor 2020-0 No Notes: Kojo lynn Rx 1-22 (Same as: l 15:00: Nephro-Vit [place] 00 e Rx and Diatx) Give with food. Epoetin 0 No Notes: Memoria Franca 1-22 (Same as: l 14:39: Procrit) [place] 00 epoetin franca 78250 unit/1 ml VL. For dialysis use only. (Procrit) WASTE: F/P - Red; E -Red MEDICATION WASTE Product Size: 47932 unit Product Wasted: ___ unit Epoetin 2020-0 No Notes: Memoria Franca 1-22 (Same as: l 14:39: Procrit) [place] 00 epoetin franca 42617 unit/1 ml VL. For dialysis use only. (Procrit) WASTE: F/P - Red; E -Red MEDICATION WASTE Product Size: 07909 unit Product Wasted: ___ unit Epoetin 2020-0 No Notes: Memoria Franca 1-22 (Same as: l 14:39: Procrit) [place] 00 epoetin [place] 95520 unit/1 ml VL. For dialysis use only. (Procrit) WASTE: F/P - Red; E -Red MEDICATION WASTE Product Size: 08872 unit Product Wasted: ___ unit Potassium 2020-0 No Notes: Memori a Chloride 1-22 (Same as: l 14:38: K-Dur 20) [place] 00 "Do Not Crush" Give with food and full glass of water For patients unable to swallow tablet, dissolve in one half glass of water. Allow about 2 minutes for the tablets to disintegra te. Stir before giving to prepare slurry and administer . Please exclude Patient s with feeding tube less than 14 Bangl[place] (Dobhoff, J-tube etc) and pediatric and patients. Potassium 2020-0 No Notes: Memori a Chloride 1-22 (Same as: l 14:38: K-Dur 20) [place] 00 "Do Not Crush" Give with food and full glass of water For patients unable to swallow tablet, dissolve in one half glass of water. Allow about 2 minutes for the tablets to disintegra te. Stir before giving to prepare slurry and administer . Please exclude Patient s with feeding tube less than 14 [place] (Dobhoff, J-tube etc) and pediatric and patients. Potassium 2020-0 No Notes: Memori a Chloride 1-22 (Same as: l 14:38: K-Dur 20) [place] 00 "Do Not Crush" Give with food and full glass of water For patients unable to swallow tablet, dissolve in one half glass of water. Allow about 2 minutes for the tablets to disintegra te. Stir before giving to prepare slurry and administer . Please exclude Patient s with feeding tube less than 14 [place] (Dobhoff, J-tube etc) and pediatric and patients. carvedilol 2020-0 No Notes: Memor ia 1-22 Give with l 03:00: food. [place] 00 (Same As: Coreg) tamsulosin 2020-0 No Notes: Memor ia - (Same As: l 03:00: Flomax) [place] 00 "Do Not Crush" carvedilol 2020-0 No Notes: Memor ia 1-22 Give with l 03:00: food. [place] 00 (Same As: Coreg) tamsulosin 2020-0 No Notes: Memor ia - (Same As: l 03:00: Flomax) [place] "Do Not Crush" carvedilol 2020-0 No Notes: Memor ia 1-22 Give with l 03:00: food. [place] (Same As: Coreg) tamsulosin 2019-0 No Notes: Memor ia - (Same As: l 03:00: Flomax) [place] 00 "Do Not Crush" Lactulose 2020-0 No Notes: Memori a 667 MG/ML - (Same l Oral 00:36: as:Chronul [place] Solution 00 ac) Lactulose 2020-0 No Notes: Memori a 1-22 Lactulose l 00:36: 300ml, [place] 00 Water for Irrigation 700ml - total volume = 1000ml Lactulose 2020-0 No Notes: Memori a 667 MG/ML - (Same l Oral 00:36: as:Chronul [place] Solution 00 ac) Lactulose 2020-0 No Notes: Memori a 1-22 Lactulose l 00:36: 300ml, [place] 00 Water for Irrigation 700ml - total volume = 1000ml Lactulose 2020-0 No Notes: Memori a 667 MG/ML 1-22 (Same l Oral 00:36: as:Chronul [place] Solution 00 ac) Lactulose 2020-0 No Notes: Memori a 1-22 Lactulose l 00:36: 300ml, [place] 00 Water for Irrigation 700ml - total volume = 1000ml tizanidine 2020-0 No Notes: Memor ia 1-21 (Same As: l 22:22: Zanaflex) [place] 00 tizanidine 2020-0 No Notes: Memor ia 1-21 (Same As: l 22:22: Zanaflex) [place] 00 tizanidine 2020-0 No Notes: Memor ia 1-21 (Same As: l 22:22: Zanaflex) [place] Hydralazine 2019-0 No Notes: Kojo lynn Hydrochlori 1-21 (Same as: l de 25 MG 22:00: Apresoline Her meeks Oral Tablet 00 ) May interfere w/enteral feedings Take With Food. Hydralazine No Notes: Kojo lynn Hydrochlori 1-21 (Same as: l de 25 MG 22:00: Apresoline Her meeks Oral Tablet 00 ) May interfere w/enteral feedings Take With Food. Hydralazine No Notes: Kojo lynn Hydrochlori 1-21 (Same as: l de 25 MG 22:00: Apresoline Her meeks Oral Tablet 00 ) May interfere w/enteral feedings Take With Food. calcium 2020-0 Yes 2,001 mg = Kojo lynn acetate 667 1-21 3 cap, PO, l MG Oral 21:57: TID, 0 [place] Capsule 00 Refill(s) calcium 2020-0 Yes 2,001 mg = Kojo lynn acetate 667 1-21 3 cap, PO, l MG Oral 21:57: TID, 0 [place] Capsule 00 Refill(s) calcium 2020-0 Yes 2,001 mg = Kojo lynn acetate 667 1-21 3 cap, PO, l MG Oral 21:57: TID, 0 [place] Capsule 00 Refill(s) Diazepam 2020-0 No Notes: Memoria 1-21 (Same as: l 21:25: Valium) [place] Diazepam 2020-0 No Notes: Memoria 1-21 (Same as: l 21:25: Valium) [place] Diazepam 2020-0 No Notes: Memoria 1-21 (Same as: l 21:25: Valium) [place] Hydralazine 2019-0 No Notes: Kojo lynn 1-21 (Same as: l 18:50: Apresoline [place] 00 ) Push over 5 minutes Hydralazine 2019-0 No Notes: Kojo lynn 1-21 (Same as: l 18:50: Apresoline [place] 00 ) Push over 5 minutes Hydralazine 2019-0 No Notes: Kojo lynn 1-21 (Same as: l 18:50: Apresoline [place] 00 ) Push over 5 minutes acetaminoph No Notes: Do M emoria en-codeine 1-21 not exceed l #3 18:49: 4gm/day of acetaminop hen. (Same as: Tylenol with Codeine # 3) acetaminoph No Notes: Do M emoria en-codeine 1-21 not exceed l #3 18:49: 4gm/day of acetaminop hen. (Same as: Tylenol with Codeine # 3) acetaminoph No Notes: Do M emoria en-codeine - not exceed l #3 18:49: 4gm/day of acetaminop hen. (Same as: Tylenol with Codeine # 3) Lasix No Notes: Memoria - (Same as: l 15:00: Lasix) MEDICATION WASTE [...] Crush) Potassium No Notes: Memori a Chloride - (Same as: l 14:55: K-Dur 20) "Do Not Crush" Give with food and full glass of water For patients unable to swallow tablet, dissolve in one half glass of water. Allow about 2 minutes for the tablets to disintegra te. Stir before giving to prepare slurry and administer . Please exclude Patient s with feeding tube less than 14 Bangl[place] (Dobhoff, J-tube etc) and pediatric and patients. Magnesium 2020-0 No Notes: Memori a Sulfate 1-21 WASTE: F/P l 14:55: - Sink; E [place] - Municipal Trash Bin Potassium 2019-0 No Notes: Memori a Chloride 1-21 (Same as: l 14:55: K-Dur 20) [place] 00 "Do Not Crush" Give with food and full glass of water For patients unable to swallow tablet, dissolve in one half glass of water. Allow about 2 minutes for the tablets to disintegra te. Stir before giving to prepare slurry and administer . Please exclude Patient s with feeding tube less than 14 [place] (Dobhoff, J-tube etc) and pediatric and patients. Magnesium 2020-0 No Notes: Memori a Sulfate -21 WASTE: F/P l 14:55: - Sink; E [place] - Municipal Trash Bin Potassium 2019-0 No Notes: Memori a Chloride -21 (Same as: l 14:55: K-Dur 20) [place] 00 "Do Not Crush" Give with food and full glass of water For patients unable to swallow tablet, dissolve in one half glass of water. Allow about 2 minutes for the tablets to disintegra te. Stir before giving to prepare slurry and administer . Please exclude Patient s with feeding tube less than 14 [place] (Dobhoff, J-tube etc) and pediatric and patients. Magnesium 2020-0 No Notes: Memori a Sulfate 1-21 WASTE: F/P l 14:55: - Sink; E [place] 00 - Municipal Trash Bin Diazepam 2020-0 Yes 10 mg, PO, Mem oria 1-21 PRN as l 08:31: needed for [place] 00 anxiety, 0 Refill(s) Diazepam 2020-0 Yes 10 mg, PO, Mem oria 1-21 PRN as l 08:31: needed for [place] 00 anxiety, 0 Refill(s) Diazepam 2020-0 Yes 10 mg, PO, Mem oria 1-21 PRN as l 08:31: needed for [place] 00 anxiety, 0 Refill(s) zolpidem 10 2019-0 Yes 10 mg = 1 M emoria mg oral -21 tab, PO, l tablet 08:27: Bedtime, [place] 00 PRN as needed for insomnia, 0 Refill(s) zolpidem 10 2020-0 Yes 10 mg = 1 M emoria mg oral -21 tab, PO, l tablet 08:27: Bedtime, [place] 00 PRN as needed for insomnia, 0 Refill(s) zolpidem 10 2020-0 Yes 10 mg = 1 M emoria mg oral -21 tab, PO, l tablet 08:27: Bedtime, [place] 00 PRN as needed for insomnia, 0 Refill(s) Lasix 2020-0 No Notes: Memoria 10-29 (Same as: l 06:55: Lasix) [place] MEDICATION WASTE Product Size: 40 mg Product Wasted: ___ mg Lasix 2020-0 No Notes: Memoria 10-29 (Same as: l 06:55: Lasix) [place] MEDICATION WASTE Product Size: 40 mg Product Wasted: ___ mg Lasix 2020-0 No Notes: Memoria 10-29 (Same as: l 06:55: Lasix) [place] MEDICATION WASTE Product Size: 40 mg Product Wasted: ___ mg Dextrose 2020-0 No 12.5 gm, Memor ia 50% Syringe 10-29 25 mL, l (D50W) 06:50: Route: IVP, Drug Form: INJ, Dosing Weight 90.909, kg, PRN, PRN Blood Glucose Results, Start date: 10/29/19 0:50:00 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, Duration: 30 day, Stop date: 11/28/19 0:49:00 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, 0 Glucagon 2020-0 No 1 mg, Memoria 10-29 Route: IM, l 06:50: Drug form: PDR/INJ, PRN, Dosing Weight 90.909, kg, PRN Blood Glucose Results, Start date: 10/29/19 0:50:00 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, Duration: 30 day, Stop date: 11/28/19 0:49:00 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, 0 Ondansetron 2019-0 No Notes: Kojo lynn 10-29 (Same as: l 06:50: Zofran) [place] MEDICATION WASTE Product Size: 4 mg Product Wasted: ___ mg Melatonin 2020-0 No Notes: Memori a 10-29 (Same as: l 06:50: Melatonin) Acetaminoph 0 No Notes: Do M emoria en 10-29 not exceed l 06:50: 4 gm/day. (Same as: Tylenol) Dextrose 2020-0 No 12.5 gm, Memor ia 50% Syringe - 25 mL, l (D50W) 06:50: Route: [place] IVP, Drug Form: INJ, Dosing Weight 90.909, kg, PRN, PRN Blood Glucose Results, Start date: 10/29/19 0:50:00 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, Duration: 30 day, Stop date: 11/28/19 0:49:00 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, 0 Glucagon 2019-0 No 1 mg, Memoria 10-29 Route: IM, l 06:50: Drug form: [place] 00 PDR/INJ, PRN, Dosing Weight 90.909, kg, PRN Blood Glucose Results, Start date: 10/29/19 0:50:00 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, Duration: 30 day, Stop date: 11/28/19 0:49:00 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, 0 Ondansetron No Notes: Kojo lynn 10-29 (Same as: l 06:50: Zofran) MEDICATION WASTE Product Size: 4 mg Product Wasted: ___ mg Melatonin 2019-0 No Notes: Memori a 10-29 (Same as: l 06:50: Melatonin) Acetaminoph 0 No Notes: Do M emoria en 10-29 not exceed l 06:50: 4 gm/day. (Same as: Tylenol) Dextrose 2020-0 No 12.5 gm, Memor ia 50% Syringe 10-29 25 mL, l (D50W) 06:50: Route: [place] 00 IVP, Drug Form: INJ, Dosing Weight 90.909, kg, PRN, PRN Blood Glucose Results, Start date: 10/29/19 0:50:00 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, Duration: 30 day, Stop date: 11/28/19 0:49:00 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, 0 Glucagon 2019-0 No 1 mg, Memoria 10-29 Route: IM, l 06:50: Drug form: [place] PDR/INJ, PRN, Dosing Weight 90.909, kg, PRN Blood Glucose Results, Start date: 10/29/19 0:50:00 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, Duration: 30 day, Stop date: 11/28/19 0:49:00 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, 0 Ondansetron No Notes: Kojo lynn 10-29 [...] l / 03:22: Duoneb) [place] Ipratropium 00 [place] 0.167 MG/ML Inhalant Solution [DuoNeb] Albuterol No Notes: SEE Me moria 0.83 MG/ML 10-29 RT l Inhalant 03:22: DOCUMENTAT Her meeks Solution 00 ION (Same as: Proventil) Albuterol No Notes: Memori a 0.833 MG/ML 10-29 (Same as: l / 03:22: Duoneb) [place] Ipratropium 00 [place] 0.167 MG/ML Inhalant Solution [DuoNeb] Albuterol No Notes: SEE Me moria 0.83 MG/ML 10-29 RT l Inhalant 03:22: DOCUMENTAT Her meeks Solution 00 ION (Same as: Proventil) Albuterol No Notes: Memori a 0.833 MG/ML 10-29 (Same as: l / 03:22: Duoneb) [place] Ipratropium 00 [place] 0.167 MG/ML Inhalant Solution [DuoNeb] Albuterol No Notes: SEE Me moria 0.83 MG/ML 10-29 RT l Inhalant 03:22: DOCUMENTAT Her meeks Solution 00 ION (Same as: Proventil) carvedilol 2018-10 Yes 12.5 mg = Me moria 12.5 mg 1-12 1 tab, PO, l oral tablet 17:56: Q12H, # 60 [place] 00 tab, 0 Refill(s), Pharmacy: [facility] Furosemide 2018-10 Yes 80 mg = 2 Me moria 40 MG Oral 1-12 tab, PO, l Tablet 17:56: TID, # 180 [place] nn 00 tab, 0 Refill(s), Pharmacy: [facility] Hydralazine 2018-10 Yes 50 mg = 2 M emoria Hydrochlori 1-12 tab, PO, l de 25 MG 17:56: Q8H, # 180 Her meeks Oral Tablet 00 tab, 0 Refill(s), Pharmacy: [facility] lisinopril 2018-10 Yes 40 mg = 1 Me moria 40 mg oral 1-12 tab, PO, l tablet 17:56: Daily, # [place] 00 30 tab, 0 Refill(s), Pharmacy: [facility] NIFEdipine 2018-10 Yes 90 mg = 1 Me moria 90 mg oral 1-12 tab, PO, l tablet, 17:56: Daily, # Rafael n extended 00 30 tab, 0 release Refill(s), Pharmacy: [facility] carvedilol 2018-10 Yes 12.5 mg = Me moria 12.5 mg 1-12 1 tab, PO, l oral tablet 17:56: Q12H, # 60 [place] 00 tab, 0 Refill(s), Pharmacy: [facility] Furosemide 2018-10 Yes 80 mg = 2 Me moria 40 MG Oral 1-12 tab, PO, l Tablet 17:56: TID, # 180 [place] nn 00 tab, 0 Refill(s), Pharmacy: [facility] Hydralazine 2018-10 Yes 50 mg = 2 M emoria Hydrochlori 1-12 tab, PO, l de 25 MG 17:56: Q8H, # 180 Her meeks Oral Tablet 00 tab, 0 Refill(s), Pharmacy: [facility] lisinopril 2018-10 Yes 40 mg = 1 Me moria 40 mg oral 1-12 tab, PO, l tablet 17:56: Daily, # [place] 00 30 tab, 0 Refill(s), Pharmacy: [facility] NIFEdipine 2018-10 Yes 90 mg = 1 Me moria 90 mg oral 1-12 tab, PO, l tablet, 17:56: Daily, # Rafael n extended 00 30 tab, 0 release Refill(s), Pharmacy: [facility] carvedilol 2018-10 Yes 12.5 mg = Me moria 12.5 mg 1-12 1 tab, PO, l oral tablet 17:56: Q12H, # 60 [place] 00 tab, 0 Refill(s), Pharmacy: [facility] Furosemide 2018-10 Yes 80 mg = 2 Me moria 40 MG Oral 1-12 tab, PO, l Tablet 17:56: TID, # 180 [place] nn 00 tab, 0 Refill(s), Pharmacy: [facility] Hydralazine 2018-10 Yes 50 mg = 2 M emoria Hydrochlori 1-12 tab, PO, l de 25 MG 17:56: Q8H, # 180 Her meeks Oral Tablet 00 tab, 0 Refill(s), Pharmacy: [facility] lisinopril 2018-10 Yes 40 mg = 1 Me moria 40 mg oral 1-12 tab, PO, l tablet 17:56: Daily, # [place] 00 30 tab, 0 Refill(s), Pharmacy: [facility] NIFEdipine 2018-10 Yes 90 mg = 1 Me moria 90 mg oral 1-12 tab, PO, l tablet, 17:56: Daily, # [place] n extended 00 30 tab, 0 release Refill(s), Pharmacy: [facility] carvedilol 2018-10 No Notes: Memor ia 1-12 Give with l 03:00: food. [place] 00 (Same As: Coreg) carvedilol 2018-10 No Notes: Memor ia 1-12 Give with l 03:00: food. [place] 00 (Same As: Coreg) carvedilol 2018-10 No Notes: Memor ia 1-12 Give with l 03:00: food. [place] 00 (Same As: Coreg) NIFEdipine 2018-10 No 90 mg, Memor ia 60 mg oral 10-19 Route: PO, l tablet, 15:00: Drug form: Herm dionne extended 00 ERTAB, release Daily, Dosing Weight 96.364, kg, Start date: 08/19/19 9:00:00 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, Duration: 30 day, Stop date: 09/17/19 9:00:00 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, 0 lisinopril 2018-10 No Notes: Memor ia 1-11 (Same as: l 15:00: Prinivil, [place] 00 Zestril) NIFEdipine 2018-10 No 90 mg, Memor ia 60 mg oral 10-19 Route: PO, l tablet, 15:00: Drug form: Herm dionne extended 00 ERTAB, release Daily, Dosing Weight 96.364, kg, Start date: 08/19/19 9:00:00 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, Duration: 30 day, Stop date: 09/17/19 9:00:00 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, 0 lisinopril 2018-10 No Notes: Memor ia 1-11 (Same as: l 15:00: Prinivil, [place] 00 Zestril) NIFEdipine 2018-10 No 90 mg, Memor ia 60 mg oral 10-19 Route: PO, l tablet, 15:00: Drug form: Herm dionne extended 00 ERTAB, release Daily, Dosing Weight 96.364, kg, Start date: 08/19/19 9:00:00 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, Duration: 30 day, Stop date: 09/17/19 9:00:00 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, 0 lisinopril 2018-10 No Notes: Memor ia 1-11 (Same as: l 15:00: Prinivil, [place] 00 Zestril) carvedilol 2018-10 No Notes: Memor ia 1-11 Give with l 03:00: food. [place] 00 (Same As: Coreg) carvedilol 2018-10 No Notes: Memor ia 1-11 Give with l 03:00: food. [place] 00 (Same As: Coreg) carvedilol 2018-10 No Notes: Memor ia 1-11 Give with l 03:00: food. [place] 00 (Same As: Coreg) Clonidine 2018-10 No Notes: Memori a 1-11 (Same As: l 00:45: Catapres) [place] Clonidine 2018-10 No Notes: Memori a 1-11 (Same As: l 00:45: Catapres) [place] 00 Clonidine 2018-10 No Notes: Memori a 1-11 (Same As: l 00:45: Catapres) [place] Clonidine 2018-10 No Notes: Memori a Hydrochlori 1-11 (Same As: l de 0.1 MG 00:44: Catapres) Her meeks Oral Tablet Clonidine 2018-10 No Notes: Memori a Hydrochlori 1-11 (Same As: l de 0.1 MG 00:44: Catapres) Her meeks Oral Tablet Clonidine 2018-10 No Notes: Memori a Hydrochlori 1-11 (Same As: l de 0.1 MG 00:44: Catapres) Her meeks Oral Tablet 00 Hydralazine 2018-10 No Notes: Kojo lynn 1-10 (Same as: l 22:00: Apresoline [place] 00 ) May interfere w/enteral feedings Take With Food. Hydralazine 2018-10 No Notes: Kojo lynn 1-10 (Same as: l 22:00: Apresoline [place] ) May interfere w/enteral feedings Take With Food. Hydralazine 2018-10 No Notes: Kojo lynn 1-10 (Same as: l 22:00: Apresoline [place] 00 ) May interfere w/enteral feedings Take With Food. Lisinopril 2018-10 No Notes: Memor ia 1-10 (Same as: l 20:11: Prinivil, [place] 00 Zestril) Lisinopril 2018-10 No Notes: Memor ia 1-10 (Same as: l 20:11: Prinivil, [place] 00 Zestril) Lisinopril 2018-10 No Notes: Memor ia 1-10 (Same as: l 20:11: Prinivil, [place] 00 Zestril) NIFEdipine 2018-10 No Notes: Memor ia 60 mg oral 1-10 (Same as: l tablet, 20:09: Adalat CC, Herm dionne extended 00 Procardia release XL) Give on empty stomach. Take 1 hour before or 2 hours after meal; "Avoid grapefruit and grapefruit juice". Do not crush NIFEdipine 2018-10 No Notes: Memor ia 60 mg oral 1-10 (Same as: l tablet, 20:09: Adalat CC, Herm dionne extended 00 Procardia release XL) Give on empty stomach. Take 1 hour before or 2 hours after meal; "Avoid grapefruit and grapefruit juice". Do not crush NIFEdipine 2018-10 No Notes: Memor ia 60 mg oral 1-10 (Same as: l tablet, 20:09: Adalat CC, Herm dionne extended 00 Procardia release XL) Give on empty stomach. Take 1 hour before or 2 hours after meal; "Avoid grapefruit and grapefruit juice". Do not crush heparin 2018-10 No 10,000 Memoria 1-10 unit/mL, l 15:29: Route: DIALYSIS, Drug form: INJ, ONCALL, Dosing Weight 96.364, kg, Priority: NOW, Start date: 08/18/19 9:29:00 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, Duration: 1 doses or times, 0 heparin 2018-10 No 10,000 Memoria 1-10 unit/mL, l 15:29: Route: DIALYSIS, Drug form: INJ, ONCALL, Dosing Weight 96.364, kg, Priority: NOW, Start date: 08/18/19 9:29:00 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, Duration: 1 doses or times, 0 heparin 2018-10 No 10,000 Memoria 1-10 unit/mL, l 15:29: Route: DIALYSIS, Drug form: INJ, ONCALL, Dosing Weight 96.364, kg, Priority: NOW, Start date: 08/18/19 9:29:00 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, Duration: 1 doses or times, 0 heparin 2018-10 No 10,000 Memoria 1-09 unit, 10 l 19:00: mL, Route: [place] 00 DIALYSIS, Drug form: INJ, ONCALL, Dosing Weight 96.364, kg, Start date: 08/17/19 13:00:00 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, Duration: 1 doses or times, 0 heparin 2018-10 No 10,000 Memoria 1-09 unit, 10 l 19:00: mL, Route: [place] 00 DIALYSIS, Drug form: INJ, ONCALL, Dosing Weight 96.364, kg, Start date: 08/17/19 13:00:00 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, Duration: 1 doses or times, 0 heparin 2019- No 10,000 Memoria 1-09 unit, 10 l 19:00: mL, Route: [place] 00 DIALYSIS, Drug form: INJ, ONCALL, Dosing Weight 96.364, kg, Start date: 08/17/19 13:00:00 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, Duration: 1 doses or times, 0 Sodium 2019- No 1,000 mL, Memori a Chloride 1-09 1,000 l 0.9% 18:06: ml/hr, [place] (Bolus) IV 00 Infuse Over: 1 hr, Route: IV, 1,000, Drug form: INJ, PRN, Priority: STAT, Dosing Weight 96.364 kg, Start date: 08/17/19 12:06:00 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, Duration: 30 day, Stop date: 09/16/19 12:05:00 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, PRN Dialysis, 0 Sodium 2018- No 1,000 mL, Memori a Chloride 1-09 1,000 l 0.9% 18:06: ml/hr, [place] (Bolus) IV 00 Infuse Over: 1 hr, Route: IV, 1,000, Drug form: INJ, PRN, Priority: STAT, Dosing Weight 96.364 kg, Start date: 08/17/19 12:06:00 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, Duration: 30 day, Stop date: 09/16/19 12:05:00 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, PRN Dialysis, 0 Sodium 2019- No 1,000 mL, Memori a Chloride 1-09 1,000 l 0.9% 18:06: ml/hr, [place] (Bolus) IV 00 Infuse Over: 1 hr, Route: IV, 1,000, Drug form: INJ, PRN, Priority: STAT, Dosing Weight 96.364 kg, Start date: 08/17/19 12:06:00 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, Duration: 30 day, Stop date: 09/16/19 12:05:00 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, PRN Dialysis, 0 Potassium 2019- No Notes: Memori a Chloride 1-08 (Same as: l 15:18: K-Dur 20) [place] 00 "Do Not Crush" Give with food and full glass of water For patients unable to swallow tablet, dissolve in one half glass of water. Allow about 2 minutes for the tablets to disintegra te. Stir before giving to prepare slurry and administer . Please exclude Patient s with feeding tube less than 14 Bangl[place] (Dobhoff, J-tube etc) and pediatric and patients. Potassium 2018-10 No Notes: Memori a Chloride 1-08 (Same as: l 15:18: K-Dur 20) Marlo 00 "Do Not Crush" Give with food and full glass of water For patients unable to swallow tablet, dissolve in one half glass of water. Allow about 2 minutes for the tablets to disintegra te. Stir before giving to prepare slurry and administer . Please exclude Patient s with feeding tube less than 14 Bangl[place] (Dobhoff, J-tube etc) and pediatric and patients. Potassium 2018-10 No Notes: Memori a Chloride 1-08 (Same as: l 15:18: K-Dur 20) [place] 00 "Do Not Crush" Give with food and full glass of water For patients unable to swallow tablet, dissolve in one half glass of water. Allow about 2 minutes for the tablets to disintegra te. Stir before giving to prepare slurry and administer . Please exclude Patient s with feeding tube less than 14 [place] (Dobhoff, J-tube etc) and pediatric and patients. Seroquel 2018-10 No Notes: Memoria 1-08 (Same as: l 02:36: SEROquel) [place] Seroquel 2018-10 No Notes: Memoria 1-08 (Same as: l 02:36: SEROquel) [place] Seroquel 2018-10 No Notes: Memoria 1-08 (Same as: l 02:36: SEROquel) [place] Ativan 2018-10 No Notes: Memoria 1-07 (Same as: l 21:45: Ativan) [place] Ativan 2018-10 No Notes: Memoria 1-07 (Same as: l 21:45: Ativan) [place] Ativan 2018-10 No Notes: Memoria 1-07 (Same as: l 21:45: Ativan) [place] Ativan 2018-10 No Notes: Memoria 1-07 (Same as: l 19:03: Ativan) [place] Ativan 2018-10 No Notes: Memoria 1-07 (Same as: l 19:03: Ativan) Ativan 2018-10 No Notes: Memoria 1-07 (Same as: l 19:03: Ativan) [place] amLODIPine 2018-10 No Notes: Memor ia 1-07 (Same as: l 15:00: Norvasc) [place] 00 lisinopril 2018-10 No Notes: Memor ia 1- (Same as: l 15:00: Prinivil, [place] 00 Zestril) multivitami 2018-10 No Notes: Kojo lynn n 1-07 (Same l 15:00: as:One Tab [place] 00 Daily, Tab-A-Conor + Beta Carotene) Give with food. NIFEdipine 2018-10 No Notes: Memor ia 60 mg oral - (Same as: l tablet, 15:00: Adalat CC, Herm dionne extended 00 Procardia release XL) Give on empty stomach. Take 1 hour before or 2 hours after meal; "Avoid grapefruit and grapefruit juice". Do not crush amLODIPine 2018-10 No Notes: Memor ia 1- (Same as: l 15:00: Norvasc) lisinopril 2018-10 No Notes: Memor ia 1- (Same as: l 15:00: Prinivil, [place] 00 Zestril) multivitami 2018-10 No Notes: Kojo lynn n 1-07 (Same l 15:00: as:One Tab [place] 00 Daily, Tab-A-Conor + Beta Carotene) Give with food. NIFEdipine 2018-10 No Notes: Memor ia 60 mg oral - (Same as: l tablet, 15:00: Adalat CC, Herm dionne extended 00 Procardia release XL) Give on empty stomach. Take 1 hour before or 2 hours after meal; "Avoid grapefruit and grapefruit juice". Do not crush amLODIPine 2018-10 No Notes: Memor ia 1-07 (Same as: l 15:00: Norvasc) [place] lisinopril 2018-10 No Notes: Memor ia 1-07 (Same as: l 15:00: Prinivil, [place] 00 Zestril) multivitami 2018-10 No Notes: Kojo lynn n 1-07 (Same l 15:00: as:One Tab [place] 00 Daily, Tab-A-Conor + Beta Carotene) Give with food. NIFEdipine 2018-10 No Notes: Memor ia 60 mg oral 10-15 (Same as: l tablet, 15:00: Adalat CC, Herm dionne extended Procardia release XL) Give on empty stomach. Take 1 hour before or 2 hours after meal; "Avoid grapefruit and grapefruit juice". Do not crush Haldol 2018-10 No Notes: Memoria 1-07 (Same as: l 10:28: Haldol) [place] Haldol 2018-10 No Notes: Memoria 1-07 (Same as: l 10:28: Haldol) [place] Haldol 2018-10 No Notes: Memoria 1-07 (Same as: l 10:28: Haldol) [place] 00 Haldol 2018-10 No Notes: Memoria 1-07 (Same as: l 10:25: Haldol) [place] Haldol 2018-10 No Notes: Memoria 1-07 (Same as: l 10:25: Haldol) [place] Haldol 2018-10 No Notes: Memoria 1-07 (Same as: l 10:25: Haldol) [place] 00 heparin 2018-10 No Notes: Memoria 1-07 porcine l 06:00: heparin [place] 00 heparin 2018-10 No Notes: Memoria 1-07 porcine l 06:00: heparin [place] 00 heparin 2018-10 No Notes: Memoria 1-07 porcine l 06:00: heparin [place] 00 tamsulosin 2018-10 No Notes: Memor ia 1-07 (Same As: l 03:00: Flomax) [place] "Do Not Crush" tamsulosin 2018-10 No Notes: Memor ia 1-07 (Same As: l 03:00: Flomax) [place] "Do Not Crush" tamsulosin 2018-10 No Notes: Memor ia 1-07 (Same As: l 03:00: Flomax) [place] 00 "Do Not Crush" Amlodipine 2018-10 No 1 cap, Memor ia 10 MG / 06 Route: PO, l Benazepril 23:00: Drug Form: H ermann hydrochlori 00 CAP, de 20 MG Dosing Oral Weight Capsule 100.17, kg, TID, Start date: 08/14/19 17:00:00 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, Duration: 30 day, Stop date: 09/13/19 13:00:00 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 carvedilol 2018-10 No Notes: Memor ia 1-06 Give with l 23:00: food. [place] 00 (Same As: Coreg) Furosemide 2018-10 No [...] 100.17, kg, TID, Start date: 08/14/19 17:00:00 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, Duration: 30 day, Stop date: 09/13/19 13:00:00 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 carvedilol 2018-10 No Notes: Memor ia 1-06 Give with l 23:00: food. [place] 00 (Same As: Coreg) Furosemide 2018-10 No Notes: Memor ia 1-06 (Same as: l 23:00: Lasix) [place] 00 May cause GI upset. Give with food or milk. Hydralazine 2018-10 No Notes: Kojo lynn 1-06 (Same as: l 23:00: Apresoline [place] 00 ) May interfere w/enteral feedings Take [...] 100.17, kg, TID, Start date: 08/14/19 17:00:00 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, Duration: 30 day, Stop date: 09/13/19 13:00:00 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 carvedilol 2018-10 No Notes: Memor ia 1-06 Give with l 23:00: food. [place] 00 (Same As: Coreg) Furosemide 2018-10 No Notes: Memor ia 1-06 (Same as: l 23:00: Lasix) [place] 00 May cause GI upset. Give with food or milk. Hydralazine 2018-10 No Notes: Kojo lynn 1-06 (Same as: l 23:00: Apresoline [place] 00 ) May interfere w/enteral feedings Take With Food Hydroxyzine 2018-10 No Notes: Kojo lynn Hydrochlori 1-06 (Same as: l de 25 MG 23:00: Atarax) Rafael n Oral Tablet 00 Avoid alcohol. NIFEdipine 2018-10 No Notes: Memor ia 30 mg oral 1-06 (Same as: l tablet, 22:45: Adalat CC, Herm dionne extended 00 Procardia release XL) Give on empty stomach. Take 1 hour before or 2 hours after meal; "Avoid grapefruit and grapefruit juice". Do not crush NIFEdipine 2018-10 No Notes: Memor ia 30 mg oral 1-06 (Same as: l tablet, 22:45: Adalat CC, Herm dionne extended 00 Procardia release XL) Give on empty stomach. Take 1 hour before or 2 hours after meal; "Avoid grapefruit and grapefruit juice". Do not crush NIFEdipine 2018-10 No Notes: Memor ia 30 mg oral 1-06 (Same as: l tablet, 22:45: Adalat CC, Herm dionne extended 00 Procardia release XL) Give on empty stomach. Take 1 hour before or 2 hours after meal; "Avoid grapefruit and grapefruit juice". Do not crush Hydralazine 2018-10 No Notes: Kojo lynn 1-06 (Same as: l 21:58: Apresoline [place] 00 ) Push over 5 minutes Hydralazine 2018-10 No Notes: Kojo lynn 1-06 (Same as: l 21:58: Apresoline [place] 00 ) Push over 5 minutes Hydralazine 2018-10 No Notes: Kojo lynn 1-06 (Same as: l 21:58: Apresoline ) Push over 5 minutes acetaminoph 2018-10 No Notes: Do M emoria en-codeine - not exceed l #3 21:51: 4gm/day of [place] acetaminop hen. (Same as: Tylenol with Codeine # 3) acetaminoph 2018-10 No Notes: Do M emoria en-codeine - not exceed l #3 21:51: 4gm/day of [place] acetaminop hen. (Same as: Tylenol with Codeine # 3) acetaminoph 2018-10 No Notes: Do M emoria en-codeine - not exceed l #3 21:51: 4gm/day of [place] acetaminop hen. (Same as: Tylenol with Codeine # 3) Dextrose 2018-10 No 12.5 gm, Memor ia 50% Syringe 10-14 25 mL, l 21:47: Route: IVP, Drug Form: INJ, Dosing Weight 100.17, kg, PRN, PRN Blood Glucose Results, Start date: 08/14/19 15:47:00 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, Duration: 30 day, Stop date: 09/13/19 15:46:00 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, 0 Glucagon 2018-10 No 1 mg, Memoria 10-14 Route: IM, l 21:47: Drug form: PDR/INJ, PRN, Dosing Weight 100.17, kg, PRN Blood Glucose Results, Start date: 08/14/19 15:47:00 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, Duration: 30 day, Stop date: 09/13/19 15:46:00 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, 0 Ondansetron 2018-10 No Notes: Kojo lynn - (Same as: l 21:47: Zofran) MEDICATION WASTE Product Size: 4 mg Product Wasted: ___ mg Acetaminoph 2018-10 No Notes: Do M emoria en - not exceed l 21:47: 4 gm/day. (Same as: Tylenol) Dextrose 2018-10 No 12.5 gm, Memor ia 50% Syringe 10-14 25 mL, l 21:47: Route: 00 IVP, Drug Form: INJ, Dosing Weight 100.17, kg, PRN, PRN Blood Glucose Results, Start date: 08/14/19 15:47:00 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, Duration: 30 day, Stop date: 09/13/19 15:46:00 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, 0 Glucagon 2018-10 No 1 mg, Memoria 10-14 Route: IM, l 21:47: Drug form: [place] 00 PDR/INJ, PRN, Dosing Weight 100.17, kg, PRN Blood Glucose Results, Start date: 08/14/19 15:47:00 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, Duration: 30 day, Stop date: 09/13/19 15:46:00 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, 0 Ondansetron 2018-10 No Notes: Kojo lynn 10-14 (Same as: l 21:47: Zofran) [place] MEDICATION WASTE Product Size: 4 mg Product Wasted: ___ mg Acetaminoph 2018-10 No Notes: Do M emoria en 10-14 not exceed l 21:47: 4 gm/day. [place] (Same as: Tylenol) Dextrose 2018-10 No 12.5 gm, Memor ia 50% Syringe 10-14 25 mL, l 21:47: Route: [place] 00 IVP, Drug Form: INJ, Dosing Weight 100.17, kg, PRN, PRN Blood Glucose Results, Start date: 08/14/19 15:47:00 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, Duration: 30 day, Stop date: 09/13/19 15:46:00 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, 0 Glucagon 2018-10 No 1 mg, Memoria 10-14 Route: IM, l 21:47: Drug form: [place] PDR/INJ, PRN, Dosing Weight 100.17, kg, PRN Blood Glucose Results, Start date: 08/14/19 15:47:00 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, Duration: 30 day, Stop date: 09/13/19 15:46:00 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, 0 Ondansetron 2018-10 No Notes: Kojo lynn 10-14 (Same as: l 21:47: Zofran) [place] MEDICATION WASTE Product Size: 4 mg Product Wasted: ___ mg Acetaminoph 2018-10 No Notes: Do M emoria en 10-14 not exceed l 21:47: 4 gm/day. [place] (Same as: Tylenol) acetaminoph 2018-10 Yes 1 tab, PO, Memoria en-codeine 06 Q6H, PRN l #3 20:48: Pain Score [place] 00 4-6, 0 Refill(s) Amlodipine 2018-10 No 1 cap, PO, M emoria 10 MG / 06 TID, 0 l Benazepril 20:48: Refill(s) He rmann hydrochlori 00 de 20 MG Oral Capsule carvedilol 2018-10 No 6.25 mg = Me moria 6.25 mg 10-14 1 tab, PO, l oral tablet 20:48: BID, # 180 [place] 00 tab, 0 Refill(s) Hydroxyzine 2018-10 Yes 25 mg = 1 M emoria Hydrochlori 06 tab, PO, l de 25 MG 20:48: TID, 0 [place] Oral Tablet 00 Refill(s) furosemide 2018-10 No 80 mg = 1 Me moria 80 mg oral 10-14 tab, PO, l tablet 20:48: TID, 0 [place] 00 Refill(s) acetaminoph 2018-10 Yes 1 tab, PO, Memoria en-codeine 10-14 Q6H, PRN l #3 20:48: Pain Score [place] 00 4-6, 0 Refill(s) Amlodipine 2018-10 No 1 cap, PO, M emoria 10 MG / 10-14 TID, 0 l Benazepril 20:48: Refill(s) Jarad rmann hydrochlori 00 de 20 MG Oral Capsule carvedilol 2018-10 No 6.25 mg = Me moria 6.25 mg 10-14 1 tab, PO, l oral tablet 20:48: BID, # 180 [place] 00 tab, 0 Refill(s) Hydroxyzine 2018-10 Yes 25 mg = 1 M emoria Hydrochlori 06 tab, PO, l de 25 MG 20:48: TID, 0 [place] Oral Tablet 00 Refill(s) furosemide 2018-10 No 80 mg = 1 Me moria 80 mg oral 06 tab, PO, l tablet 20:48: TID, 0 [place] 00 Refill(s) acetaminoph 2018-10 Yes 1 tab, PO, Memoria en-codeine 06 Q6H, PRN l #3 20:48: Pain Score [place] 00 4-6, 0 Refill(s) Amlodipine 2018-10 No 1 cap, PO, M emoria 10 MG / 06 TID, 0 l Benazepril 20:48: Refill(s) He rmann hydrochlori 00 de 20 MG Oral Capsule carvedilol 2018-10 No 6.25 mg = Me moria 6.25 mg 10-14 1 tab, PO, l oral tablet 20:48: BID, # 180 [place] 00 tab, 0 Refill(s) Hydroxyzine 2018-10 Yes [...] tab, PO, l tablet 20:19: Daily, # [place] 00 30 tab, 0 Refill(s), Pharmacy: [facility] #[id number] doxycycline Yes 100 mg = 1 Memoria hyclate 100 7-01 cap, PO, l MG Oral 20:19: Q12H, X 5 [place] nn Capsule 00 day, # 10 cap, 0 Refill(s), Pharmacy: [facility] #[id number] lisinopril Yes 20 mg = 1 Me moria 20 mg oral 04-08 tab, PO, l tablet 20:19: Daily, # 30 tab, 0 Refill(s), Pharmacy: [facility] #[id number] Miralax No Notes: Memoria 7- Dissolve l 14:36: in 8 oz of [place] 00 water or juice. (Same as: Miralax) Miralax No Notes: Memoria 7-01 Dissolve l 14:36: in 8 oz of [place] 00 water or juice. (Same as: Miralax) [...] Sodium 04-06 Route: l Chloride 22:00: IVPB, [place] 0.9% IV 250 00 [id number], mL Dosing Weight 102.273, kg, Start date: 04/06/19 17:00:00 CDT, Duration: 7 day, Stop date: 04/12/19 17:00:00 CDT, ABX Indication : Pneumonia, 0 Hydralazine No Notes: Kojo lynn - (Same as: l 22:00: Apresoline [place] ) May interfere w/enteral feedings Take With Food Lasix No Notes: Memoria 6-29 (Same as: l 22:00: Lasix) [place] May cause GI upset. Give with food or milk. Zithromax + No 500 mg, Mem oria Sodium 04-06 Route: l Chloride 22:00: IVPB, [place] 0.9% IV 250 00 [id number], mL Dosing Weight 102.273, kg, Start date: 04/06/19 17:00:00 CDT, Duration: 7 day, Stop date: 04/12/19 17:00:00 CDT, ABX Indication : Pneumonia, 0 Hydralazine No Notes: Kojo lynn 6-29 (Same as: l 22:00: Apresoline [place] ) May interfere w/enteral feedings Take With Food Lasix No Notes: Memoria 6-29 (Same as: l 22:00: Lasix) [place] May cause GI upset. Give with food or milk. Zithromax + No 500 mg, Mem oria Sodium 04-06 Route: l Chloride 22:00: IVPB, [place] 0.9% IV 250 00 [id number], mL Dosing Weight 102.273, kg, Start date: 04/06/19 17:00:00 CDT, Duration: 7 day, Stop date: 04/12/19 17:00:00 CDT, ABX Indication : Pneumonia, 0 Hydralazine No Notes: Kojo lynn 6-29 (Same as: l 22:00: Apresoline [place] ) May interfere w/enteral feedings Take With Food Lasix No Notes: Memoria 6-29 (Same as: l 22:00: Lasix) [place] 00 May cause GI upset. Give with food or milk. cefTRIAXone No Notes: Kojo lynn + sterile 6 Give IV l water 10 mL 21:00: push Rafael n 00 slowly over 5 minutes Give within one hour of reconstitu tion Reconstitu te Ceftriaxon e 1 g vial: 10 mL of SWFI Shake immediatel y & vigorously cefTRIAXone No Notes: Kojo lynn + sterile 6-29 Give IV l water 10 mL 21:00: push Rafael n 00 slowly over 5 minutes Give within one hour of reconstitu tion Reconstitu te Ceftriaxon e 1 g vial: 10 mL of SWFI Shake immediatel y & vigorously cefTRIAXone No Notes: Kojo lynn + sterile 6-29 Give IV l water 10 mL 21:00: push Rafael n 00 slowly over 5 minutes Give within one hour of reconstitu tion Reconstitu te Ceftriaxon e 1 g vial: 10 mL of SWFI Shake immediatel y & vigorously Procardia No Notes: Memori a XL 30 mg 6-29 (Same as: l oral 19:00: Adalat CC, [place] tablet, 00 Procardia extended XL) Give release [...] (Same as: l oral 19:00: Adalat CC, [place] tablet, 00 Procardia extended XL) Give release on empty stomach. Take 1 hour before or 2 hours after meal; "Avoid grapefruit and grapefruit juice". Do not crush Alprazolam No Notes: Memor ia 2 MG Oral 6-29 With food l Tablet 18:22: or milk [place] [Xanax] 00 (Same as: Xanax) Alprazolam No Notes: Memor ia 2 MG Oral 6-29 With food l Tablet 18:22: or milk [place] [Xanax] 00 (Same as: Xanax) Alprazolam No Notes: Memor ia 2 MG Oral 6-29 With food l Tablet 18:22: or milk [place] [Xanax] 00 (Same as: Xanax) Hydralazine No Notes: Kojo lynn 6-29 (Same as: l 18:21: Apresoline [place] 00 ) Push over 5 minutes Hydralazine No Notes: Kojo lynn 6-29 (Same as: l 18:21: Apresoline ) Push over 5 minutes Hydralazine [...] 6-29 Route: PO, l 14:00: Drug form: [place] 00 TAB, Daily, Dosing Weight 100.17, kg, Start date: 04/06/19 9:00:00 CDT, Duration: 30 day, Stop date: 05/05/19 9:00:00 CDT Saline No Notes: Memoria Flush 0.9% 6-29 preservati l 14:00: ve free. heparin No Notes: Memoria 6-29 porcine l 14:00: heparin lisinopril No Notes: Memor ia 6-29 (Same as: l 08:57: Prinivil, [place] 00 Zestril) lisinopril No Notes: Memor ia 6-29 (Same as: l 08:57: Prinivil, [place] 00 Zestril) lisinopril No Notes: Memor ia 6-29 (Same as: l 08:57: Prinivil, [place] 00 Zestril) Amlodipine No Notes: Memor ia 6-29 (Same as: l 08:56: Norvasc) [place] Amlodipine No Notes: Memor ia 6-29 (Same as: l 08:56: Norvasc) [place] Amlodipine No Notes: Memor ia 6-29 (Same as: l 08:56: Norvasc) [place] carvedilol No Notes: Memor ia 6-29 Give with l 04:30: food. [place] 00 (Same As: Coreg) Hydralazine No Notes: Kojo lynn 6-29 (Same as: l 04:30: Apresoline [place] ) May interfere w/enteral feedings Take With Food carvedilol No Notes: Memor ia 6-29 Give with l 04:30: food. [place] 00 (Same As: Coreg) Hydralazine No Notes: Kojo lynn 6-29 (Same as: l 04:30: Apresoline [place] ) May interfere w/enteral feedings Take With Food carvedilol No Notes: Memor ia 6-29 Give with l 04:30: food. 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 Zithromax 2019-0 No 500 mg, Memor ia 6-29 Route: l 03:00: IVPB, [place] 00 [id number], Dosing Weight 102.273, kg, Start date: 04/05/19 22:00:00 CDT, Duration: 7 day, Stop date: 04/11/19 22:00:00 CDT, ABX Indication : Pneumonia Ceftriaxone 2019-0 No 1 gm, Memor ia 6-29 Route: l 03:00: IVPB, [place] 00 [id number], Dosing Weight 102.273, kg, Start date: 04/05/19 22:00:00 CDT, Duration: 7 day, Stop date: 04/11/19 22:00:00 CDT, ABX Indication : Pneumonia Aspirin 325 2019-0 No Notes: (Do Memoria MG Enteric 6-29 Not Crush) l Coated 03:00: Do not [place] Tablet 00 crush or chew. Zithromax 2019-0 No 500 mg, Memor ia 6-29 Route: l 03:00: IVPB, [place] 00 [id number], Dosing Weight 102.273, kg, Start date: 04/05/19 22:00:00 CDT, Duration: 7 day, Stop date: 04/11/19 22:00:00 CDT, ABX Indication : Pneumonia Ceftriaxone 2019-0 No 1 gm, Memor ia 6-29 Route: l 03:00: IVPB, [place] [id number], Dosing Weight 102.273, kg, Start date: 04/05/19 22:00:00 CDT, Duration: 7 day, Stop date: 04/11/19 22:00:00 CDT, ABX Indication : Pneumonia Aspirin 325 No Notes: (Do Memoria MG Enteric -29 Not Crush) l Coated 03:00: Do not [place] Tablet 00 crush or chew. Zithromax No 500 mg, Memor ia - Route: l 03:00: IVPB, [place] [id number], Dosing Weight 102.273, kg, Start date: 04/05/19 22:00:00 CDT, Duration: 7 day, Stop date: 04/11/19 22:00:00 CDT, ABX Indication : Pneumonia Ceftriaxone No 1 gm, Memor ia 04-06 Route: l 03:00: IVPB, [place] [id number], Dosing Weight 102.273, kg, Start date: 04/05/19 22:00:00 CDT, Duration: 7 day, Stop date: 04/11/19 22:00:00 CDT, ABX Indication : Pneumonia Glucagon No 1 mg, Memoria 04-06 Route: IM, l 02:03: Drug form: PDR/INJ, PRN, Dosing Weight 102.273, kg, PRN Blood Glucose Results, Start date: 04/05/19 21:03:00 CDT, Duration: 30 day, Stop date: 05/05/19 21:02:00 CDT, 0 Bisacodyl No Notes: Memori a -29 (Same As: l 02:03: Dulcolax, Bisco-Lax) Ondansetron No Notes: Kojo lynn - (Same as: l 02:03: Zofran) MEDICATION WASTE Product Size: 4 mg Product Wasted: ___ mg Melatonin No Notes: Memori a 6-29 (Same as: l 02:03: Melatonin) Acetaminoph No Notes: Do M emoria en 6-29 not exceed l 02:03: 4 gm/day. (Same as: Tylenol) Dextrose No 25 gm, 50 Kojo lynn 50% Syringe 6-29 mL, Route: l 02:03: IVP, Drug Form: INJ, Dosing Weight 102.273, kg, PRN, PRN Blood Glucose Results, Start date: 04/05/19 21:03:00 CDT, Duration: 30 day, Stop date: 05/05/19 21:02:00 CDT, 0 Glucagon No 1 mg, Memoria 04-06 Route: IM, l 02:03: Drug form: [place] 00 PDR/INJ, PRN, Dosing Weight 102.273, kg, PRN Blood Glucose Results, Start date: 04/05/19 21:03:00 CDT, Duration: 30 day, Stop date: 05/05/19 21:02:00 CDT, 0 Bisacodyl No Notes: Memori a - (Same As: l 02:03: Dulcolax, [place] 00 Bisco-Lax) Ondansetron No Notes: Kojo lynn - (Same as: l 02:03: Zofran) MEDICATION WASTE Product Size: 4 mg Product Wasted: ___ mg Melatonin No Notes: Memori a 6-29 (Same as: l 02:03: Melatonin) Acetaminoph No Notes: Do Ambrose emoria en 04-06 not exceed l 02:03: 4 gm/day. (Same as: Tylenol) Dextrose No 25 gm, 50 Kojo lynn 50% Syringe 6-29 mL, Route: l 02:03: IVP, Drug Form: INJ, Dosing Weight 102.273, kg, PRN, PRN Blood Glucose Results, Start date: 04/05/19 21:03:00 CDT, Duration: 30 day, Stop date: 05/05/19 21:02:00 CDT, 0 Glucagon 0 No 1 mg, Memoria 04-06 Route: IM, l 02:03: Drug form: [place] 00 PDR/INJ, PRN, Dosing Weight 102.273, kg, PRN Blood Glucose Results, Start date: 04/05/19 21:03:00 CDT, Duration: 30 day, Stop date: 05/05/19 21:02:00 CDT, 0 Bisacodyl No Notes: Memori a 6-29 (Same As: l 02:03: Dulcolax, Bisco-Lax) Ondansetron No Notes: Kojo lynn 6-29 (Same as: l 02:03: Zofran) MEDICATION WASTE Product Size: 4 mg Product Wasted: ___ mg Melatonin No Notes: Memori a 6-29 (Same as: l 02:03: Melatonin) Acetaminoph No Notes: Do M emoria en - not exceed l 02:03: 4 gm/day. (Same as: Tylenol) Dextrose No 25 gm, 50 Kojo lynn 50% Syringe 6-29 mL, Route: l 02:03: IVP, Drug Form: INJ, Dosing Weight 102.273, kg, PRN, PRN Blood Glucose Results, Start date: 04/05/19 21:03:00 CDT, Duration: 30 day, Stop date: 05/05/19 21:02:00 CDT, 0 Saline No Notes: Memoria Flush 0.9% 6-29 preservati l 02:02: ve free. [place] 00 Acetaminoph No Notes: Do M emoria en -29 not exceed l 02:02: 4 gm/day. [place] 00 (Same as: Tylenol) Saline No Notes: Memoria Flush 0.9% 6-29 preservati l 02:02: ve free. [place] 00 Acetaminoph No Notes: Do M emoria en 6-29 not exceed l 02:02: 4 gm/day. [place] 00 (Same as: Tylenol) Saline No Notes: Memoria Flush 0.9% 6-29 preservati l 02:02: ve free. [place] 00 Acetaminoph No Notes: Do M emoria en -29 not exceed l 02:02: 4 gm/day. [place] 00 (Same as: Tylenol) Hydromorpho No Notes: Kojo lynn ne 04-06 Same as: l 01:54: Dilaudid Tramadol No Notes: Not Mem oria 04-06 to exceed l 01:54: 400mg/day. (Same As: Ultram) Hydromorpho No Notes: Kojo lynn ne 04-06 Same as: l 01:54: Dilaudid Tramadol No Notes: Not Mem oria 6 to exceed l 01:54: 400mg/day. (Same As: Ultram) Hydromorpho No Notes: Kojo lynn ne 04-06 Same as: l 01:54: Dilaudid Tramadol No Notes: Not Mem oria 6 to exceed l 01:54: 400mg/day. (Same As: Ultram) amlodipine Yes 1{tbl} Take 1 Uni vers besylate/be 5-02 tablet by ity of nazepril 19:24: mouth 3 [place] (AMLODIPINE 36 (three) Medic al -BENAZEPRIL times Branch ORAL) daily. carvedilol Yes 6.25mg Take 6.25 [facility] 6.25 mg 5-02 mg by ity of tablet 19:24: mouth 2 [place] 36 (two) Medical times Branch daily with meals. furosemide Yes 80mg Take 80 mg U nivers (LASIX) 80 5-02 by mouth 3 ity of mg tablet 19:24: (three) [place] 36 times Medical daily. Branch hydralAZINE Yes 50mg Take 50 mg [facility] 50 mg 5-02 by mouth ity of tablet 19:24: every 8 [place] 36 (eight) Medical hours. Branch calcium 0 Yes 2001mg Take 2,001 [facility] seun acetate 667 5-02 mg by [facility] of mg capsule 19:24: mouth 3 [place] (three) Medical times Branch daily with meals. vitamin b Yes 1{tbl} Take 1 [facility] ers complex-vit 5-02 tablet by ity of villatoro 19:24: mouth [place] c-folic 36 daily. Medical acid Branch (FAUZIA-CONOR) 0.8 mg tablet tamsulosin 2018- Yes Take by [facility] vers 0.4 mg 24 5-02 mouth ity of hr capsule 19:24: daily. [place] [address] Medical Branch zolpidem 10 Yes 10mg Take 10 mg [facility] mg tablet 5-02 by mouth ity of 19:24: at bedtime [place] [address] as needed Medical for Branch Insomnia. diazePAM Yes 5mg Take 5 mg [facility] ers (VALIUM) 5 5-02 by mouth ity o f mg tablet 19:24: at [place] [address] bedtime. Medical Branch amlodipine 2018- Yes 1{tbl} Take 1 [facility] vers besylate/be 5-02 tablet by ity of nazepril 19:24: mouth 3 [place] (AMLODIPINE 36 (three) Medic al -BENAZEPRIL times Branch ORAL) daily. carvedilol Yes 6.25mg Take 6.25 [facility] 6.25 mg 5-02 mg by ity of tablet 19:24: mouth 2 [place] [address] (two) Medical times Branch daily with meals. furosemide Yes 80mg Take 80 mg U nivers (LASIX) 80 5-02 by mouth 3 ity of mg tablet 19:24: (three) [place] [address] times Medical daily. Branch hydralAZINE Yes 50mg Take 50 mg [facility] 50 mg 5-02 by mouth ity of tablet 19:24: every 8 [place] [address] (eight) Medical hours. Branch calcium Yes 2001mg Take 2,001 Un seun acetate 667 5-02 mg by ity of mg capsule 19:24: mouth 3 [facility] 36 (three) Medical times Branch daily with meals. vitamin b 2019- Yes 1{tbl} Take 1 Univ ers complex-vit 5-02 tablet by ity of villatoro 19:24: mouth [place] c-folic 36 daily. Medical acid Branch (FAUZIA-CONOR) 0.8 mg tablet tamsulosin 2018- Yes Take by Uni vers 0.4 mg 24 5-02 mouth ity of hr capsule 19:24: daily. [place] [address] [facility] Branch zolpidem 10 Yes 10mg Take 10 mg [facility] mg tablet 5-02 by mouth ity of 19:24: at bedtime [place] [address] as needed Medical for Branch Insomnia. diazePAM 2018- Yes 5mg Take 5 mg [facility] ers (VALIUM) 5 5-02 by mouth ity o f mg tablet 19:24: at [place] [address] bedtime. Medical Branch amlodipine 2019- Yes 1{tbl} Take 1 [facility] vers besylate/be 5-02 tablet by ity of nazepril 19:24: mouth 3 [place] (AMLODIPINE 36 (three) Medic al -BENAZEPRIL times Branch ORAL) daily. carvedilol 2019- Yes 6.25mg Take 6.25 [facility] 6.25 mg 5-02 mg by ity of tablet 19:24: mouth 2 [place] 36 (two) Medical times Branch daily with meals. furosemide 2019-0 Yes 80mg Take 80 mg [facility] n[facility] (LASIX) 80 5-02 by mouth 3 ity of mg tablet 19:24: (three) [place] [address] times Medical daily. Branch hydralAZINE 0 Yes 50mg Take 50 mg [facility] 50 mg 5-02 by mouth ity of tablet 19:24: every 8 [place] [address] (eight) Medical hours. Branch calcium Yes 2001mg Take 2,001 Un seun acetate 667 5-02 mg by ity of mg capsule 19:24: mouth [facility] Medical times Branch daily with meals. vitamin b 2019- Yes 1{tbl} Take 1 [facility] ers complex-vit 5-02 tablet by ity of [place] 19:24: mouth [place] c-folic daily. Medical acid Branch (FAUZIA-CONOR) 0.8 mg tablet tamsulosin 2018-0 Yes Take by [facility] vers 0.4 mg 24 5-02 mouth ity of hr capsule 19:24: daily. [place] [address] [facility] Branch zolpidem 10 2018-0 Yes 10mg Take 10 mg [facility] mg tablet 5-02 by mouth ity of 19:24: at bedtime [place] [address] as needed Medical for Branch Insomnia. diazePAM 2019-0 Yes 5mg Take 5 mg [facility] (VALIUM) 5 5-02 by mouth ity o f mg tablet 19:24: at [place] [address] bedtime. Medical Branch amlodipine 2019-0 Yes 1{tbl} Take 1 [facility] vers besylate/be 5-02 tablet by ity of nazepril 19:24: mouth 3 [place] (AMLODIPINE 36 (three) Medic al -BENAZEPRIL times Branch ORAL) daily. carvedilol 2019-0 Yes 6.25mg Take 6.25 [facility] 6.25 mg 5-02 mg by ity of tablet 19:24: mouth 2 [place] (two) Medical times Branch daily with meals. furosemide 2019-0 Yes 80mg Take 80 mg [facility] (LASIX) 80 5-02 by mouth 3 ity of mg tablet 19:24: (three) [place] [address] times Medical daily. Branch hydralAZINE 2018-0 Yes 50mg Take 50 mg [facility] 50 mg 5-02 by mouth ity of tablet 19:24: every 8 [place] [address] (eight) Medical hours. Branch calcium 2019-0 Yes 2001mg Take 2,001 Un seun acetate 667 5-02 mg by it[facility] of mg capsule 19:24: mouth [place] (three) Medical times Branch daily with meals. vitamin b 2018-0 Yes 1{tbl} Take 1 [facility] ers complex-vit 5-02 tablet by ity of villatoro 19:24: mouth [place] c-folic 36 daily. Medical acid Branch (FAUZIA-CONOR) 0.8 mg tablet tamsulosin 2018-0 Yes Take by [facility] vers 0.4 mg 24 5-02 mouth ity of hr capsule 19:24: daily. [place] [address] [facility] Branch zolpidem 10 2018-0 Yes 10mg Take 10 mg [facility] mg tablet 5-02 by mouth ity of 19:24: at bedtime [place] [address] as needed Medical for Branch Insomnia. diazePAM 2019-0 Yes 5mg Take 5 mg [facility] (VALIUM) 5 5-02 by mouth ity o f mg tablet 19:24: at [place] [address] bedtime. Medical Branch amlodipine 2019-0 Yes 1{tbl} Take 1 [facility] vers besylate/be 5-02 tablet by ity of nazepril 19:24: mouth 3 [place] (AMLODIPINE 36 (three) Medic al -BENAZEPRIL times Branch ORAL) daily. carvedilol 2019-0 Yes 6.25mg Take 6.25 [facility] 6.25 mg 5-02 mg by ity of tablet 19:24: mouth 2 [place] 36 (two) Medical times Branch daily with meals. furosemide 2019-0 Yes 80mg Take 80 mg [facility] (LASIX) 80 5-02 by mouth 3 ity of mg tablet 19:24: (three) [place] [address] times Medical daily. Branch hydralAZINE 2019-0 Yes 50mg Take 50 mg [facility] 50 mg 5-02 by mouth ity of tablet 19:24: every 8 [place] (eight) Medical hours. Branch calcium 2019-0 Yes 2001mg Take 2,001 Un seun acetate 667 5-02 mg by ity of mg capsule 19:24: mouth 3 [place] (three) Medical times Branch daily with meals. vitamin b 2019- Yes 1{tbl} Take 1 [facility] complex-vit 5-02 tablet by ity of villatoro 19:24: mouth [place] c-folic 36 daily. Medical acid Branch (FAUZIA-CONOR) 0.8 mg tablet tamsulosin 2018-0 Yes Take by [facility] vers 0.4 mg 24 5-02 mouth ity of hr capsule 19:24: daily. [place] [address] [facility] Branch zolpidem 10 2018-0 Yes 10mg Take 10 mg [facility] mg tablet 5-02 by mouth ity of 19:24: at bedtime [place] as needed Medical for Branch Insomnia. diazePAM 2018-0 Yes 5mg Take 5 mg [facility] (VALIUM) 5 5-02 by mouth ity o f mg tablet 19:24: at [place] [address] bedtime. Medical Branch amlodipine 2018- Yes 1{tbl} Take 1 [facility] vers besylate/be 5-02 tablet by ity of nazepril 19:24: mouth 3 [place] (AMLODIPINE 36 (three) Medic al -BENAZEPRIL times Branch ORAL) daily. carvedilol 2018- Yes 6.25mg Take 6.25 [facility] 6.25 mg 5-02 mg by ity of tablet 19:24: mouth 2 [place] 36 (two) Medical times Branch daily with meals. furosemide 2019-0 Yes 80mg Take 80 mg [facility] (LASIX) 80 5-02 by mouth 3 ity of mg tablet 19:24: (three) [place] [address] times Medical daily. Branch hydralAZINE 2019-0 Yes 50mg Take 50 mg [facility] 50 mg 5-02 by mouth ity of tablet 19:24: every 8 [place] [address] (eight) Medical hours. Branch calcium 2019-0 Yes 2001mg Take 2,001 Un seun acetate 667 5-02 mg by ity of mg capsule 19:24: mouth 3 [place] (three) Medical times Branch daily with meals. vitamin b 2019- Yes 1{tbl} Take 1 [facility] complex-vit 5-02 tablet by ity of villatoro 19:24: mouth [place] c-folic 36 daily. Medical acid Branch (FAUZIA-CONOR) 0.8 mg tablet tamsulosin 2018- Yes Take by [facility] vers 0.4 mg 24 5-02 mouth ity of hr capsule 19:24: daily. [place] [address] [facility] Branch zolpidem 10 Yes 10mg Take 10 mg [facility] mg tablet 5-02 by mouth ity of 19:24: at bedtime [place] [address] as needed Medical for Branch Insomnia. diazePAM Yes 5mg Take 5 mg [facility] (VALIUM) 5 5-02 by mouth ity o f mg tablet 19:24: at [place] [address] bedtime. Medical Branch amlodipine 2018- Yes 1{tbl} Take 1 [facility] vers besylate/be 5-02 tablet by ity of nazepril 19:24: mouth 3 [place] (AMLODIPINE 36 (three) Medic al -BENAZEPRIL times Branch ORAL) daily. carvedilol Yes 6.25mg Take 6.25 [facility] 6.25 mg 5-02 mg by ity of tablet 19:24: mouth 2 [place] [address] (two) Medical times Branch daily with meals. furosemide Yes 80mg Take 80 mg [facility] (LASIX) 80 5-02 by mouth 3 ity of mg tablet 19:24: (three) [place] [address] times Medical daily. Branch hydralAZINE Yes 50mg Take 50 mg [facility] 50 mg 5-02 by mouth ity of tablet 19:24: every 8 [place] [address] (eight) Medical hours. Branch calcium 2018- Yes 2001mg Take 2,001 Un seun acetate 667 5-02 mg by ity of mg capsule 19:24: mouth 3 [facility] [place] [facility] Medical times Branch daily with meals. vitamin b 2019- Yes 1{tbl} Take 1 [facility] complex-vit 5-02 tablet by ity of villatoro 19:24: mouth [place] c-folic 36 daily. Medical acid Branch (FAUZIA-CONOR) 0.8 mg tablet tamsulosin 2018- Yes Take by [facility] vers 0.4 mg 24 5-02 mouth ity of hr capsule 19:24: daily. [place] [address] Medical Branch zolpidem 10 Yes 10mg Take 10 mg [facility] mg tablet 5-02 by mouth ity of 19:24: at bedtime [place] [address] as needed Medical for Branch Insomnia. diazePAM 2019-0 Yes 5mg Take 5 mg [facility] (VALIUM) 5 5-02 by mouth ity o f mg tablet 19:24: at [place] [address] bedtime. Medical Branch amlodipine 2019-0 Yes 1{tbl} Take 1 [facility] vers besylate/be 5-02 tablet by ity of nazepril 19:24: mouth 3 [place] (AMLODIPINE 36 (three) Medic al -BENAZEPRIL times Branch ORAL) daily. carvedilol 2019-0 Yes 6.25mg Take 6.25 [facility] 6.25 mg 5-02 mg by ity of tablet 19:24: mouth 2 [place] [address] (two) Medical times Branch daily with meals. furosemide 2019-0 Yes 80mg Take 80 mg [facility] (LASIX) 80 5-02 by mouth 3 ity of mg tablet 19:24: (three) [place] [address] times Medical daily. Branch hydralAZINE 2019-0 Yes 50mg Take 50 mg [facility] 50 mg 5-02 by mouth ity of tablet 19:24: every 8 [place] [address] (eight) Medical hours. Branch calcium 2019-0 Yes 2001mg Take 2,001 Un seun acetate 667 5-02 mg by ity of mg capsule 19:24: mouth 3 [place] [address] (three) Medical times Branch daily with meals. vitamin b 2019-0 Yes 1{tbl} Take 1 [facility] ers complex-vit 5-02 tablet by ity of villatoro 19:24: mouth [place] c-folic daily. Medical acid Branch (FAUZIA-CONOR) 0.8 mg tablet tamsulosin 2019-0 Yes Take by [facility] vers 0.4 mg 24 5-02 mouth ity of hr capsule 19:24: daily. [place] [address] Medical Branch zolpidem 10 2019-0 Yes 10mg Take 10 mg [facility] mg tablet 5-02 by mouth ity of 19:24: at bedtime [place] [address] as needed Medical for Branch Insomnia. diazePAM 2019-0 Yes 5mg Take 5 mg [facility] (VALIUM) 5 5-02 by mouth ity o f mg tablet 19:24: at [place] [address] bedtime. Medical Branch amlodipine 2019-0 Yes 1{tbl} Take 1 [facility] vers besylate/be 5-02 tablet by ity of nazepril 19:24: mouth 3 [place] (AMLODIPINE 36 (three) Medic al -BENAZEPRIL times Branch ORAL) daily. carvedilol 2019-0 Yes 6.25mg Take 6.25 [facility] 6.25 mg 5-02 mg by ity of tablet 19:24: mouth 2 [place] [address] (two) Medical times Branch daily with meals. furosemide 2019-0 Yes 80mg Take 80 mg [facility] n[facility] (LASIX) 80 5-02 by mouth 3 ity of mg tablet 19:24: (three) [place] [address] times Medical daily. Branch hydralAZINE 2019-0 Yes 50mg Take 50 mg [facility] 50 mg 5-02 by mouth ity of tablet 19:24: every 8 [place] [address] (eight) Medical hours. Branch calcium 2019-0 Yes 2001mg Take 2,001 Un seun acetate 667 5-02 mg by ity of mg capsule 19:24: mouth 3 [facility] [place] [facility] Medical times Branch daily with meals. vitamin b 2018- Yes 1{tbl} Take 1 [facility] ers complex-vit 5-02 tablet by ity of villatoro 19:24: mouth [place] cfolic daily. Medical acid Branch (FAUZIA-CONOR) 0.8 mg tablet tamsulosin 2018-0 Yes Take by [facility] vers 0.4 mg 24 5-02 mouth ity of hr capsule 19:24: daily. [place] [address] Medical Branch zolpidem 10 2018-0 Yes 10mg Take 10 mg [facility] mg tablet 5-02 by mouth ity of 19:24: at bedtime [place] [address] as needed Medical for Branch Insomnia. diazePAM 2018- Yes 5mg Take 5 mg [facility] (VALIUM) 5 5-02 by mouth ity o f mg tablet 19:24: at [place] [address] bedtime. Medical Branch amlodipine 2019-0 Yes 1{tbl} Take 1 [facility] vers besylate/be 5-02 tablet by ity of nazepril 19:24: mouth 3 [place] (AMLODIPINE 36 (three) Medic al -BENAZEPRIL times Branch ORAL) daily. carvedilol 2019-0 Yes 6.25mg Take 6.25 [facility] 6.25 mg 5-02 mg by ity of tablet 19:24: mouth 2 [place] [address] (two) Medical times Branch daily with meals. furosemide 2018-0 Yes 80mg Take 80 mg [facility] n[facility] (LASIX) 80 5-02 by mouth 3 ity of mg tablet 19:24: (three) [place] 36 times Medical daily. Branch hydralAZINE 2019-0 Yes 50mg Take 50 mg [facility] 50 mg 5-02 by mouth ity of tablet 19:24: every 8 [place] [address] (eight) Medical hours. Branch calcium 2019-0 Yes 2001mg Take 2,001 Un seun acetate 667 5-02 mg by ity of mg capsule 19:24: mouth 3 [place] (three) Medical times Branch daily with meals. vitamin b 2019-0 Yes 1{tbl} Take 1 [facility] ers complex-vit 5-02 tablet by ity of villatoro 19:24: mouth [place] c-folic 36 daily. Medical acid Branch (FAUZIA-CONOR) 0.8 mg tablet tamsulosin 2019-0 Yes Take by [facility] vers 0.4 mg 24 5-02 mouth ity of hr capsule 19:24: daily. [place] [address] Medical Branch zolpidem 10 2019-0 Yes 10mg Take 10 mg [facility] mg tablet 5-02 by mouth ity of 19:24: at bedtime [place] [address] as needed Medical for Branch Insomnia. diazePAM 2019-0 Yes 5mg Take 5 mg [facility] (VALIUM) 5 5-02 by mouth ity o f mg tablet 19:24: at [place] [address] bedtime. Medical Branch amlodipine 2019-0 Yes 1{tbl} Take 1 [facility] vers besylate/be 5-02 tablet by ity of nazepril 19:24: mouth 3 [place] (AMLODIPINE 36 (three) Medic al -BENAZEPRIL times Branch ORAL) daily. carvedilol 2019-0 Yes 6.25mg Take 6.25 [facility] 6.25 mg 5-02 mg by ity of tablet 19:24: mouth 2 [place] 36 (two) Medical times Branch daily with meals. furosemide 2019-0 Yes 80mg Take 80 mg [facility] n[facility] (LASIX) 80 5-02 by mouth 3 ity of mg tablet 19:24: (three) [place] [address] times Medical daily. Branch hydralAZINE 2019-0 Yes 50mg Take 50 mg [facility] 50 mg 5-02 by mouth ity of tablet 19:24: every 8 [place] 36 (eight) Medical hours. Branch calcium 2019-0 Yes 2001mg Take 2,001 Un seun acetate 667 5-02 mg by ity of mg capsule 19:24: mouth 3 [place] (three) Medical times Branch daily with meals. vitamin b 2019- Yes 1{tbl} Take 1 [facility] ers complex-vit 5-02 tablet by ity of villatoro 19:24: mouth [place] c-folic 36 daily. Medical acid Branch (FAUZIA-CONOR) 0.8 mg tablet tamsulosin 2018-0 Yes Take by [facility] vers 0.4 mg 24 5-02 mouth ity of hr capsule 19:24: daily. [place] [address] Medical Branch zolpidem 10 2018-0 Yes 10mg Take 10 mg [facility] mg tablet 5-02 by mouth ity of 19:24: at bedtime [place] [address] as needed Medical for Branch Insomnia. diazePAM 2019-0 Yes 5mg Take 5 mg [facility] (VALIUM) 5 5-02 by mouth ity o f mg tablet 19:24: at [place] [address] bedtime. Medical Branch amlodipine 2018-0 Yes 1{tbl} Take 1 [facility] vers besylate/be 5-02 tablet by ity of nazepril 19:24: mouth 3 [place] (AMLODIPINE 36 (three) Medic al -BENAZEPRIL times Branch ORAL) daily. carvedilol 2019-0 Yes 6.25mg Take 6.25 [facility] 6.25 mg 5-02 mg by ity of tablet 19:24: mouth 2 [place] [address] (two) Medical times Branch daily with meals. furosemide 2019-0 Yes 80mg Take 80 mg [facility] n[facility] (LASIX) 80 5-02 by mouth 3 ity of mg tablet 19:24: (three) [place] [address] times Medical daily. Branch hydralAZINE 2018-0 Yes 50mg Take 50 mg [facility] 50 mg 5-02 by mouth ity of tablet 19:24: every 8 [place] [address] (eight) Medical hours. Branch calcium 2019-0 Yes 2001mg Take 2,001 Un seun acetate 667 5-02 mg by ity of mg capsule 19:24: mouth 3 [facility] 36 (three) Medical times Branch daily with meals. vitamin b 2019-0 Yes 1{tbl} Take 1 [facility] ers complex-vit 5-02 tablet by ity of villatoro 19:24: mouth [facility] 36 daily. Medical acid Branch (FAUZIA-CONOR) 0.8 mg tablet tamsulosin 2018-0 Yes Take by [facility] vers 0.4 mg 24 5-02 mouth ity of hr capsule 19:24: daily. [place] [address] Medical Branch zolpidem 10 Yes 10mg Take 10 mg [facility] mg tablet 5-02 by mouth ity of 19:24: at bedtime [place] [address] as needed Medical for Branch Insomnia. diazePAM 2019-0 Yes 5mg Take 5 mg [facility] ers (VALIUM) 5 5-02 by mouth ity o f mg tablet 19:24: at [place] [address] bedtime. Medical Branch amlodipine 2019- Yes 1{tbl} Take 1 [facility] vers besylate/be 5-02 tablet by ity of nazepril 19:24: mouth 3 [place] (AMLODIPINE 36 (three) Medic al -BENAZEPRIL times Branch ORAL) daily. carvedilol 2018-0 Yes 6.25mg Take 6.25 [facility] 6.25 mg 5-02 mg by ity of tablet 19:24: mouth 2 [place] [address] (two) Medical times Branch daily with meals. furosemide Yes 80mg Take 80 mg [facility] nivers (LASIX) 80 5-02 by mouth 3 ity of mg tablet 19:24: (three) [place] [address] times Medical daily. Branch hydralAZINE Yes 50mg Take 50 mg [facility] 50 mg 5-02 by mouth ity of tablet 19:24: every 8 [place] [address] (eight) Medical hours. Branch calcium 2019-0 Yes 2001mg Take 2,001 Un seun acetate 667 5-02 mg by ity of mg capsule 19:24: mouth 3 [facility] [place] [facility] Medical times Branch daily with meals. vitamin b 2019- Yes 1{tbl} Take 1 [facility] ers complex-vit 5-02 tablet by ity of villatoro 19:24: mouth [place] c-folic daily. Medical acid Branch (FAUZIA-CONOR) 0.8 mg tablet tamsulosin 2019-0 Yes Take by [facility] vers 0.4 mg 24 5-02 mouth ity of hr capsule 19:24: daily. [place] [address] Medical Branch zolpidem 10 0 Yes 10mg Take 10 mg [facility] mg tablet 5-02 by mouth ity of 19:24: at bedtime [place] [address] as needed Medical for Branch Insomnia. diazePAM 2019-0 Yes 5mg Take 5 mg [facility] ers (VALIUM) 5 5-02 by mouth ity o f mg tablet 19:24: at [place] [address] bedtime. Medical Branch amlodipine 2019-0 Yes 1{tbl} Take 1 [facility] vers besylate/be 5-02 tablet by ity of nazepril 19:24: mouth 3 [place] (AMLODIPINE 36 (three) Medic al -BENAZEPRIL times Branch ORAL) daily. carvedilol 2019-0 Yes 6.25mg Take 6.25 [facility] 6.25 mg 5-02 mg by ity of tablet 19:24: mouth 2 [place] [address] (two) Medical times Branch daily with meals. furosemide 2019-0 Yes 80mg Take 80 mg [facility] nivers (LASIX) 80 5-02 by mouth 3 ity of mg tablet 19:24: (three) [place] [address] times Medical daily. Branch hydralAZINE 2019-0 Yes 50mg Take 50 mg [facility] 50 mg 5-02 by mouth ity of tablet 19:24: every 8 [place] [address] (eight) Medical hours. Branch calcium 2019-0 Yes 2001mg Take 2,001 Un seun acetate 667 5-02 mg by ity of mg capsule 19:24: mouth 3 [facility] [place] [facility] times Branch daily with meals. vitamin b 2018-0 Yes 1{tbl} Take 1 [facility] ers complex-vit 5-02 tablet by ity of villatoro 19:24: mouth [place] c-folic daily. Medical acid Branch (FAUZIA-CONOR) 0.8 mg tablet tamsulosin 2018-0 Yes Take by [facility] vers 0.4 mg 24 5-02 mouth ity of hr capsule 19:24: daily. [place] [address] Medical Branch zolpidem 10 2019-0 Yes 10mg Take 10 mg [facility] mg tablet 5-02 by mouth ity of 19:24: at bedtime [place] [address] as needed Medical for Branch Insomnia. diazePAM 2019-0 Yes 5mg Take 5 mg [facility] ers (VALIUM) 5 5-02 by mouth ity o f mg tablet 19:24: at [place] [address] bedtime. Medical Branch amlodipine 2019-0 Yes 1{tbl} Take 1 [facility] vers besylate/be 5-02 tablet by ity of nazepril 19:24: mouth 3 [place] (AMLODIPINE 36 (three) Medic al -BENAZEPRIL times Branch ORAL) daily. carvedilol 2019-0 Yes 6.25mg Take 6.25 [facility] 6.25 mg 5-02 mg by ity of tablet 19:24: mouth 2 [place] [address] (two) Medical times Branch daily with meals. furosemide 2019-0 Yes 80mg Take 80 mg [facility] nivers (LASIX) 80 5-02 by mouth 3 ity of mg tablet 19:24: (three) [place] [address] times Medical daily. Branch hydralAZINE 2019-0 Yes 50mg Take 50 mg [facility] 50 mg 5-02 by mouth ity of tablet 19:24: every 8 [place] [address] (eight) Medical hours. Branch calcium 2019-0 Yes 2001mg Take 2,001 Un seun acetate 667 5-02 mg by ity of mg capsule 19:24: mouth 3 [place] (three) Medical times Branch daily with meals. vitamin b 2019- Yes 1{tbl} Take 1 [facility] ers complex-vit 5-02 tablet by ity of villatoro 19:24: mouth [place] c-folic 36 daily. Medical acid Branch (FAUZIA-CONOR) 0.8 mg tablet tamsulosin 2018-0 Yes Take by [facility] vers 0.4 mg 24 5-02 mouth ity of hr capsule 19:24: daily. [place] [address] Medical Branch zolpidem 10 2018-0 Yes 10mg Take 10 mg [facility] mg tablet 5-02 by mouth ity of 19:24: at bedtime [place] [address] as needed Medical for Branch Insomnia. diazePAM 2019-0 Yes 5mg Take 5 mg [facility] ers (VALIUM) 5 5-02 by mouth ity o f mg tablet 19:24: at [place] [address] bedtime. Medical Branch amlodipine 2019-0 Yes 1{tbl} Take 1 [facility] vers besylate/be 5-02 tablet by ity of nazepril 19:24: mouth 3 [place] (AMLODIPINE 36 (three) Medic al -BENAZEPRIL times Branch ORAL) daily. carvedilol 2019-0 Yes 6.25mg Take 6.25 [facility] 6.25 mg 5-02 mg by ity of tablet 19:24: mouth 2 [place] 36 (two) Medical times Branch daily with meals. furosemide 2019-0 Yes 80mg Take 80 mg [facility] nivers (LASIX) 80 5-02 by mouth 3 ity of mg tablet 19:24: (three) [place] [address] times Medical daily. Branch hydralAZINE 2019-0 Yes 50mg Take 50 mg [facility] 50 mg 5-02 by mouth ity of tablet 19:24: every 8 [place] [address] (eight) Medical hours. Branch calcium 2019-0 Yes 2001mg Take 2,001 Un seun acetate 667 5-02 mg by ity of mg capsule 19:24: mouth 3 [place] (three) Medical times Branch daily with meals. vitamin b 2019-0 Yes 1{tbl} Take 1 [facility] ers complex-vit 5-02 tablet by ity of villatoro 19:24: mouth [place] c-folic 36 daily. Medical acid Branch (FAUZIA-CONOR) 0.8 mg tablet tamsulosin 2018-0 Yes Take by [facility] vers 0.4 mg 24 5-02 mouth ity of hr capsule 19:24: daily. [place] [address] Medical Branch zolpidem 10 2018-0 Yes 10mg Take 10 mg [facility] mg tablet 5-02 by mouth ity of 19:24: at bedtime [place] [address] as needed Medical for Branch Insomnia. diazePAM 2018-0 Yes 5mg Take 5 mg [facility] ers (VALIUM) 5 5-02 by mouth ity o f mg tablet 19:24: at [place] [address] bedtime. Medical Branch amlodipine 2018-0 Yes 1{tbl} Take 1 [facility] vers besylate/be 5-02 tablet by ity of nazepril 19:24: mouth 3 [place] (AMLODIPINE 36 (three) Medic al -BENAZEPRIL times Branch ORAL) daily. carvedilol 2018-0 Yes 6.25mg Take 6.25 [facility] 6.25 mg 5-02 mg by ity of tablet 19:24: mouth 2 [place] 36 (two) Medical times Branch daily with meals. furosemide 2018-0 Yes 80mg Take 80 mg [facility] nivers (LASIX) 80 5-02 by mouth 3 ity of mg tablet 19:24: (three) [place] [address] times Medical daily. Branch hydralAZINE 2018-0 Yes 50mg Take 50 mg [facility] 50 mg 5-02 by mouth ity of tablet 19:24: every 8 [place] [address] (eight) Medical hours. Branch calcium 2019-0 Yes 2001mg Take 2,001 Un seun acetate 667 5-02 mg by ity of mg capsule 19:24: mouth 3 [facility] [place] [facility] ([facility]) Medical times Branch daily with meals. vitamin b 2019-0 Yes 1{tbl} Take 1 [facility] ers complex-vit 5-02 tablet by ity of villatoro 19:24: mouth [place] c-folic 36 daily. Medical acid Branch (FAUZIA-CONOR) 0.8 mg tablet tamsulosin Yes Take by [facility] vers 0.4 mg 24 5-02 mouth ity of hr capsule 19:24: daily. [place] [address] Medical Branch zolpidem 10 Yes 10mg Take 10 mg [facility] mg tablet 5-02 by mouth ity of 19:24: at bedtime [place] [address] as needed Medical for Branch Insomnia. diazePAM Yes 5mg Take 5 mg [facility] ers (VALIUM) 5 5-02 by mouth ity o f mg tablet 19:24: at [place] [address] bedtime. Medical Branch amlodipine 2018- Yes 1{tbl} Take 1 [facility] vers besylate/be 5-02 tablet by ity of nazepril 19:24: mouth 3 [place] (AMLODIPINE 36 (three) Medic al -BENAZEPRIL times Branch ORAL) daily. carvedilol Yes 6.25mg Take 6.25 [facility] 6.25 mg 5-02 mg by ity of tablet 19:24: mouth 2 [place] [address] (two) Medical times Branch daily with meals. furosemide Yes 80mg Take 80 mg [facility] nivers (LASIX) 80 5-02 by mouth 3 ity of mg tablet 19:24: (three) [place] [address] times Medical daily. Branch hydralAZINE Yes 50mg Take 50 mg [facility] 50 mg 5-02 by mouth ity of tablet 19:24: every 8 [place] [address] (eight) Medical hours. Branch calcium Yes 2001mg Take 2,001 Un seun acetate 667 5-02 mg by ity of mg capsule 19:24: mouth 3 [facility] [place] [facility] Medical times Branch daily with meals. vitamin b Yes 1{tbl} Take 1 [facility] ers complex-vit 5-02 tablet by ity of villatoro 19:24: mouth [place] c-folic 36 daily. Medical acid Branch (FAUZIA-CONOR) 0.8 mg tablet tamsulosin Yes Take by [facility] vers 0.4 mg 24 5-02 mouth ity of hr capsule 19:24: daily. [place] [address] Medical Branch zolpidem 10 Yes 10mg Take 10 mg [facility] mg tablet 5-02 by mouth ity of 19:24: at bedtime [place] [address] as needed Medical for Branch Insomnia. diazePAM Yes 5mg Take 5 mg [facility] ers (VALIUM) 5 5-02 by mouth ity o f mg tablet 19:24: at [place] [address] bedtime. Medical Branch amlodipine 2019-0 Yes 1{tbl} Take 1 [facility] vers besylate/be 5-02 tablet by ity of nazepril 19:24: mouth 3 [place] (AMLODIPINE 36 (three) Medic al -BENAZEPRIL times Branch ORAL) daily. carvedilol 2019-0 Yes 6.25mg Take 6.25 [facility] 6.25 mg 5-02 mg by ity of tablet 19:24: mouth 2 [place] [address] (two) Medical times Branch daily with meals. furosemide 2019-0 Yes 80mg Take 80 mg [facility] nivers (LASIX) 80 5-02 by mouth 3 ity of mg tablet 19:24: (three) [place] [address] times Medical daily. Branch hydralAZINE 2018-0 Yes 50mg Take 50 mg [facility] 50 mg 5-02 by mouth ity of tablet 19:24: every 8 [place] [address] (eight) Medical hours. Branch calcium 2019-0 Yes 2001mg Take 2,001 Un seun acetate 667 5-02 mg by ity of mg capsule 19:24: mouth 3 [facility] [place] [facility] ([facility]) Medical times Branch daily with meals. vitamin b 2019-0 Yes 1{tbl} Take 1 [facility] ers complex-vit 5-02 tablet by ity of villatoro 19:24: mouth [place] c-folic daily. Medical acid Branch (FAUZIA-CONOR) 0.8 mg tablet tamsulosin 2018-0 Yes Take by [facility] vers 0.4 mg 24 5-02 mouth ity of hr capsule 19:24: daily. [place] [address] Medical Branch zolpidem 10 2019-0 Yes 10mg Take 10 mg [facility] mg tablet 5-02 by mouth ity of 19:24: at bedtime [place] [address] as needed Medical for Branch Insomnia. diazePAM 2019-0 Yes 5mg Take 5 mg [facility] ers (VALIUM) 5 5-02 by mouth ity o f mg tablet 19:24: at [place] [address] bedtime. Medical Branch amlodipine 2019-0 Yes 1{tbl} Take 1 [facility] vers besylate/be 5-02 tablet by ity of nazepril 19:24: mouth 3 [place] (AMLODIPINE 36 (three) Medic al -BENAZEPRIL times Branch ORAL) daily. carvedilol 2019-0 Yes 6.25mg Take 6.25 [facility] 6.25 mg 5-02 mg by ity of tablet 19:24: mouth 2 [place] [address] (two) Medical times Branch daily with meals. furosemide 2019-0 Yes 80mg Take 80 mg [facility] n[facility] (LASIX) 80 5-02 by mouth 3 ity of mg tablet 19:24: (three) [place] [address] times Medical daily. Branch hydralAZINE 2019-0 Yes 50mg Take 50 mg [facility] 50 mg 5-02 by mouth ity of tablet 19:24: every 8 [place] [address] (eight) Medical hours. Branch calcium 2019-0 Yes 2001mg Take 2,001 Un seun acetate 667 5-02 mg by [facility] mg capsule 19:24: [facility] Branch daily with meals. vitamin b 2019-0 Yes 1{tbl} Take 1 [facility] ers complex-vit 5-02 tablet by ity of villatoro 19:24: mouth [place] c-folic 36 daily. Medical acid Branch (FAUZIA-CONOR) 0.8 mg tablet tamsulosin 2019-0 Yes Take by [facility] vers 0.4 mg 24 5-02 mouth ity of hr capsule 19:24: daily. [place] [address] Medical Branch zolpidem 10 2019-0 Yes 10mg Take 10 mg [facility] mg tablet 5-02 by mouth ity of 19:24: at bedtime [place] [address] as needed Medical for Branch Insomnia. diazePAM 2019-0 Yes 5mg Take 5 mg [facility] ers (VALIUM) 5 5-02 by mouth ity o f mg tablet 19:24: at [place] [address] bedtime. Medical Branch amlodipine 2019-0 Yes 1{tbl} Take 1 [facility] vers besylate/be 5-02 tablet by ity of nazepril 19:24: mouth 3 [place] (AMLODIPINE 36 (three) Medic al -BENAZEPRIL times Branch ORAL) daily. carvedilol 2019-0 Yes 6.25mg Take 6.25 [facility] 6.25 mg 5-02 mg by ity of tablet 19:24: mouth 2 [place] [address] (two) Medical times Branch daily with meals. furosemide 2019-0 Yes 80mg Take 80 mg [facility] (LASIX) 80 5-02 by mouth 3 ity of mg tablet 19:24: (three) [place] [address] times Medical daily. Branch hydralAZINE 2019-0 Yes 50mg Take 50 mg [facility] 50 mg 5-02 by mouth ity of tablet 19:24: every 8 [place] (eight) Medical hours. Branch calcium 2019-0 Yes 2001mg Take 2,001 Un seun acetate 667 5-02 mg by [facility] of mg capsule 19:24: mouth [place] (three) Medical times Branch daily with meals. vitamin b 2019-0 Yes 1{tbl} Take 1 [facility] ers complex-vit 5-02 tablet by ity of villatoro 19:24: mouth [place] c-folic 36 daily. Medical acid Branch (FAUZIA-CONOR) 0.8 mg tablet tamsulosin 2019-0 Yes Take by [facility] vers 0.4 mg 24 5-02 mouth ity of hr capsule 19:24: daily. [place] [address] Medical Branch zolpidem 10 2019-0 Yes 10mg Take 10 mg [facility] mg tablet 5-02 by mouth ity of 19:24: at bedtime [place] as needed Medical for Branch Insomnia. diazePAM 2019-0 Yes 5mg Take 5 mg [facility] ers (VALIUM) 5 5-02 by mouth ity o f mg tablet 19:24: at [place] [address] bedtime. Medical Branch amlodipine 2019-0 Yes 1{tbl} Take 1 [facility] vers besylate/be 5-02 tablet by ity of nazepril 19:24: mouth 3 [place] (AMLODIPINE 36 (three) Medic al -BENAZEPRIL times Branch ORAL) daily. carvedilol 2019-0 Yes 6.25mg Take 6.25 [facility] 6.25 mg 5-02 mg by ity of tablet 19:24: mouth 2 [place] 36 (two) Medical times Branch daily with meals. furosemide 2019-0 Yes 80mg Take 80 mg [facility] (LASIX) 80 5-02 by mouth 3 ity of mg tablet 19:24: (three) [place] [address] times Medical daily. Branch hydralAZINE 2019-0 Yes 50mg Take 50 mg [facility] 50 mg 5-02 by mouth ity of tablet 19:24: every 8 [place] [address] (eight) Medical hours. Branch calcium 2019-0 Yes 2001mg Take 2,001 [facility] seun acetate 667 5-02 mg by [facility] of mg capsule 19:24: mouth 3 [place] (three) Medical times Branch daily with meals. vitamin b 2019-0 Yes 1{tbl} Take 1 [facility] ers complex-vit 5-02 tablet by ity of villatoro 19:24: mouth [place] c-folic 36 daily. Medical acid Branch (FAUZIA-CONOR) 0.8 mg tablet tamsulosin 2018- Yes Take by [facility] vers 0.4 mg 24 5-02 mouth ity of hr capsule 19:24: daily. [place] [address] Medical Branch zolpidem 10 Yes 10mg Take 10 mg [facility] mg tablet 5-02 by mouth ity of 19:24: at bedtime [place] [address] as needed Medical for Branch Insomnia. diazePAM Yes 5mg Take 5 mg [facility] ers (VALIUM) 5 5-02 by mouth ity o f mg tablet 19:24: at [place] [address] bedtime. Medical Branch amlodipine 2018- Yes 1{tbl} Take 1 [facility] vers besylate/be 5-02 tablet by ity of nazepril 19:24: mouth 3 [place] (AMLODIPINE 36 (three) Medic al -BENAZEPRIL times Branch ORAL) daily. carvedilol 2018- Yes 6.25mg Take 6.25 [facility] 6.25 mg 5-02 mg by ity of tablet 19:24: mouth 2 [place] [address] (two) Medical times Branch daily with meals. furosemide 2018- Yes 80mg Take 80 mg [facility] (LASIX) 80 5-02 by mouth 3 ity of mg tablet 19:24: (three) [place] [address] times Medical daily. Branch hydralAZINE 2018-0 Yes 50mg Take 50 mg [facility] 50 mg 5-02 by mouth ity of tablet 19:24: every 8 [place] [address] (eight) Medical hours. Branch calcium 2018- Yes 2001mg Take 2,001 Un seun acetate 667 5-02 mg by ity of mg capsule 19:24: mouth [facility] times Branch daily with meals. vitamin b 2019- Yes 1{tbl} Take 1 [facility] ers complex-vit 5-02 tablet by ity of villatoro 19:24: mouth [place] c-folic 36 daily. Medical acid Branch (FAUZIA-CONOR) 0.8 mg tablet tamsulosin 2018-0 Yes Take by [facility] vers 0.4 mg 24 5-02 mouth ity of hr capsule 19:24: daily. [place] [address] Medical Branch zolpidem 10 Yes 10mg Take 10 mg [facility] mg tablet 5-02 by mouth ity of 19:24: at bedtime [place] [address] as needed Medical for Branch Insomnia. diazePAM 2019-0 Yes 5mg Take 5 mg [facility] ers (VALIUM) 5 5-02 by mouth ity o f mg tablet 19:24: at [place] [address] bedtime. Medical Branch amlodipine 2019-0 Yes 1{tbl} Take 1 [facility] vers besylate/be 5-02 tablet by ity of nazepril 19:24: mouth 3 [place] (AMLODIPINE 36 (three) Medic al -BENAZEPRIL times Branch ORAL) daily. carvedilol 2019-0 Yes 6.25mg Take 6.25 [facility] 6.25 mg 5-02 mg by ity of tablet 19:24: mouth 2 [place] [address] (two) Medical times Branch daily with meals. furosemide 2019-0 Yes 80mg Take 80 mg [facility] (LASIX) 80 5-02 by mouth 3 ity of mg tablet 19:24: (three) [place] [address] times Medical daily. Branch hydralAZINE 2018-0 Yes 50mg Take 50 mg [facility] 50 mg 5-02 by mouth ity of tablet 19:24: every 8 [place] [address] (eight) Medical hours. Branch calcium 2019-0 Yes 2001mg Take 2,001 Un seun acetate 667 5-02 mg by ity of mg capsule 19:24: mouth 3 [place] [address] (three) Medical times Branch daily with meals. vitamin b 2019-0 Yes 1{tbl} Take 1 [facility] ers complex-vit 5-02 tablet by ity of villatoro 19:24: mouth [place] c-folic daily. Medical acid Branch (FAUZIA-CONOR) 0.8 mg tablet tamsulosin 2019-0 Yes Take by [facility] vers 0.4 mg 24 5-02 mouth ity of hr capsule 19:24: daily. [place] [address] Medical Branch zolpidem 10 2019-0 Yes 10mg Take 10 mg [facility] mg tablet 5-02 by mouth ity of 19:24: at bedtime [place] [address] as needed Medical for Branch Insomnia. diazePAM 2019-0 Yes 5mg Take 5 mg [facility] ers (VALIUM) 5 5-02 by mouth ity o f mg tablet 19:24: at [place] [address] bedtime. Medical Branch amlodipine 2019-0 Yes 1{tbl} Take 1 [facility] vers besylate/be 5-02 tablet by ity of nazepril 19:24: mouth 3 [place] (AMLODIPINE 36 (three) Medic al -BENAZEPRIL times Branch ORAL) daily. carvedilol 2019-0 Yes 6.25mg Take 6.25 [facility] 6.25 mg 5-02 mg by ity of tablet 19:24: mouth 2 [place] [address] (two) Medical times Branch daily with meals. furosemide 2019-0 Yes 80mg Take 80 mg [facility] (LASIX) 80 5-02 by mouth 3 ity of mg tablet 19:24: (three) [place] [address] times Medical daily. Branch hydralAZINE 2019-0 Yes 50mg Take 50 mg [facility] 50 mg 5-02 by mouth ity of tablet 19:24: every 8 [place] [address] (eight) Medical hours. Branch calcium 2019-0 Yes 2001mg Take 2,001 Un seun acetate 667 5-02 mg by it[facility] of mg capsule 19:24: [facility] [place] [facility] times Branch daily with meals. vitamin b 2019- Yes 1{tbl} Take 1 [facility] ers complex-vit 5-02 tablet by ity of villatoro 19:24: mouth [place] c-folic daily. Medical acid Branch (FAUZIA-CONOR) 0.8 mg tablet tamsulosin 2018-0 Yes Take by [facility] vers 0.4 mg 24 5-02 mouth ity of hr capsule 19:24: daily. [place] [address] Medical Branch zolpidem 10 2018-0 Yes 10mg Take 10 mg [facility] mg tablet 5-02 by mouth ity of 19:24: at bedtime [place] [address] as needed Medical for Branch Insomnia. diazePAM 2019-0 Yes 5mg Take 5 mg [facility] ers (VALIUM) 5 5-02 by mouth ity o f mg tablet 19:24: at [place] [address] bedtime. Medical Branch amlodipine 2019-0 Yes 1{tbl} Take 1 [facility] vers besylate/be 5-02 tablet by ity of nazepril 19:24: mouth 3 [place] (AMLODIPINE 36 (three) Medic al -BENAZEPRIL times Branch ORAL) daily. carvedilol 2019-0 Yes 6.25mg Take 6.25 [facility] 6.25 mg 5-02 mg by ity of tablet 19:24: mouth 2 [place] [address] (two) Medical times Branch daily with meals. furosemide 2019-0 Yes 80mg Take 80 mg [facility] nivers (LASIX) 80 5-02 by mouth 3 ity of mg tablet 19:24: (three) [place] [address] times Medical daily. Branch hydralAZINE 2019-0 Yes 50mg Take 50 mg [facility] 50 mg 5-02 by mouth ity of tablet 19:24: every 8 [place] [address] (eight) Medical hours. Branch calcium 2019-0 Yes 2001mg Take 2,001 Un seun acetate 667 5-02 mg by it[facility] of mg capsule 19:24: mouth 3 [place] (three) Medical times Branch daily with meals. vitamin b 2019-0 Yes 1{tbl} Take 1 [facility] ers complex-vit 5-02 tablet by ity of villatoro 19:24: mouth [place] c-folic 36 daily. Medical acid Branch (FAUZIA-CONOR) 0.8 mg tablet tamsulosin 2019-0 Yes Take by [facility] vers 0.4 mg 24 5-02 mouth ity of hr capsule 19:24: daily. [place] [address] Medical Branch zolpidem 10 2019-0 Yes 10mg Take 10 mg [facility] mg tablet 5-02 by mouth ity of 19:24: at bedtime [place] [address] as needed Medical for Branch Insomnia. diazePAM 2019-0 Yes 5mg Take 5 mg [facility] ers (VALIUM) 5 5-02 by mouth ity o f mg tablet 19:24: at [place] [address] bedtime. Medical Branch amlodipine 2019-0 Yes 1{tbl} Take 1 [facility] vers besylate/be 5-02 tablet by ity of nazepril 19:24: mouth 3 [place] (AMLODIPINE 36 (three) Medic al -BENAZEPRIL times Branch ORAL) daily. carvedilol 2019-0 Yes 6.25mg Take 6.25 [facility] 6.25 mg 5-02 mg by ity of tablet 19:24: mouth 2 [place] 36 (two) Medical times Branch daily with meals. furosemide 2019-0 Yes 80mg Take 80 mg [facility] n[facility] (LASIX) 80 5-02 by mouth 3 ity of mg tablet 19:24: (three) [place] [address] times Medical daily. Branch hydralAZINE 2019-0 Yes 50mg Take 50 mg [facility] 50 mg 5-02 by mouth ity of tablet 19:24: every 8 [place] [address] (eight) Medical hours. Branch calcium 2019-0 Yes 2001mg Take 2,001 Un seun acetate 667 5-02 mg by ity of mg capsule 19:24: mouth 3 [place] (three) Medical times Branch daily with meals. vitamin b 2019-0 Yes 1{tbl} Take 1 [facility] ers complex-vit 5-02 tablet by ity of villatoro 19:24: mouth [place] c-folic 36 daily. Medical acid Branch (FAUZIA-CONOR) 0.8 mg tablet tamsulosin 2018-0 Yes Take by [facility] vers 0.4 mg 24 5-02 mouth ity of hr capsule 19:24: daily. [place] [address] Medical Branch zolpidem 10 2018-0 Yes 10mg Take 10 mg [facility] mg tablet 5-02 by mouth ity of 19:24: at bedtime [place] [address] as needed Medical for Branch Insomnia. diazePAM 2019-0 Yes 5mg Take 5 mg [facility] ers (VALIUM) 5 5-02 by mouth ity o f mg tablet 19:24: at [place] [address] bedtime. Medical Branch amlodipine 2018-0 Yes 1{tbl} Take 1 [facility] vers besylate/be 5-02 tablet by ity of nazepril 19:24: mouth 3 [place] (AMLODIPINE 36 (three) Medic al -BENAZEPRIL times Branch ORAL) daily. carvedilol 2019-0 Yes 6.25mg Take 6.25 [facility] 6.25 mg 5-02 mg by ity of tablet 19:24: mouth 2 [place] [address] (two) Medical times Branch daily with meals. furosemide 2019-0 Yes 80mg Take 80 mg [facility] nivers (LASIX) 80 5-02 by mouth 3 ity of mg tablet 19:24: (three) [place] [address] times Medical daily. Branch hydralAZINE 2018-0 Yes 50mg Take 50 mg [facility] 50 mg 5-02 by mouth ity of tablet 19:24: every 8 [place] [address] (eight) Medical hours. Branch calcium 2019-0 Yes 2001mg Take 2,001 Un seun acetate 667 5-02 mg by ity of mg capsule 19:24: mouth [facility] [place] [facility] Medical times Branch daily with meals. vitamin b 2019-0 Yes 1{tbl} Take 1 [facility] ers complex-vit 5-02 tablet by ity of villatoro 19:24: mouth [place] c-folic 36 daily. Medical acid Branch (FAUZIA-CONOR) 0.8 mg tablet tamsulosin 2019-0 Yes Take by [facility] vers 0.4 mg 24 5-02 mouth ity of hr capsule 19:24: daily. [place] [address] Medical Branch zolpidem 10 Yes 10mg Take 10 mg [facility] mg tablet 5-02 by mouth ity of 19:24: at bedtime [place] [address] as needed Medical for Branch Insomnia. diazePAM 2018-0 Yes 5mg Take 5 mg [facility] ers (VALIUM) 5 5-02 by mouth ity o f mg tablet 19:24: at [place] [address] bedtime. Medical Branch amlodipine 2019- Yes 1{tbl} Take 1 [facility] vers besylate/be 5-02 tablet by ity of nazepril 19:24: mouth 3 [place] (AMLODIPINE 36 (three) Medic al -BENAZEPRIL times Branch ORAL) daily. carvedilol 2018- Yes 6.25mg Take 6.25 [facility] 6.25 mg 5-02 mg by ity of tablet 19:24: mouth 2 [place] [address] (two) Medical times Branch daily with meals. furosemide Yes 80mg Take 80 mg [facility] nivers (LASIX) 80 5-02 by mouth 3 ity of mg tablet 19:24: (three) [place] [address] times Medical daily. Branch hydralAZINE Yes 50mg Take 50 mg [facility] 50 mg 5-02 by mouth ity of tablet 19:24: every 8 [place] [address] (eight) Medical hours. Branch calcium Yes 2001mg Take 2,001 Un seun acetate 667 5-02 mg by ity of mg capsule 19:24: mouth 3 [facility] [place] [facility] Medical times Branch daily with meals. vitamin b 2018- Yes 1{tbl} Take 1 [facility] ers complex-vit 5-02 tablet by ity of villatoro 19:24: mouth [place] c-folic daily. Medical acid Branch (FAUZIA-CONOR) 0.8 mg tablet tamsulosin 2018- Yes Take by [facility] vers 0.4 mg 24 5-02 mouth ity of hr capsule 19:24: daily. [place] [address] Medical Branch zolpidem 10 Yes 10mg Take 10 mg [facility] mg tablet 5-02 by mouth ity of 19:24: at bedtime [place] [address] as needed Medical for Branch Insomnia. diazePAM 2018- Yes 5mg Take 5 mg [facility] ers (VALIUM) 5 5-02 by mouth ity o f mg tablet 19:24: at [place] [address] bedtime. Medical Branch amlodipine 2018-0 Yes 1{tbl} Take 1 [facility] vers besylate/be 5-02 tablet by ity of nazepril 19:24: mouth 3 [place] (AMLODIPINE 36 (three) Medic al -BENAZEPRIL times Branch ORAL) daily. carvedilol 2019-0 Yes 6.25mg Take 6.25 [facility] 6.25 mg 5-02 mg by ity of tablet 19:24: mouth 2 [place] [address] (two) Medical times Branch daily with meals. furosemide 2019-0 Yes 80mg Take 80 mg [facility] nivers (LASIX) 80 5-02 by mouth 3 ity of mg tablet 19:24: (three) [place] [address] times Medical daily. Branch hydralAZINE 2019-0 Yes 50mg Take 50 mg [facility] 50 mg 5-02 by mouth ity of tablet 19:24: every 8 [place] [address] (eight) Medical hours. Branch calcium 2019-0 Yes 2001mg Take 2,001 Un seun acetate 667 5-02 mg by ity of mg capsule 19:24: mouth 3 [facility] [place] [facility] Medical times Branch daily with meals. vitamin b 2019-0 Yes 1{tbl} Take 1 [facility] ers complex-vit 5-02 tablet by ity of villatoro 19:24: mouth [place] c-folic daily. Medical acid Branch (FAUZIA-CONOR) 0.8 mg tablet tamsulosin 2019-0 Yes Take by [facility] vers 0.4 mg 24 5-02 mouth ity of hr capsule 19:24: daily. [place] [address] Medical Branch zolpidem 10 2019-0 Yes 10mg Take 10 mg [facility] mg tablet 5-02 by mouth ity of 19:24: at bedtime [place] [address] as needed Medical for Branch Insomnia. diazePAM 2019-0 Yes 5mg Take 5 mg [facility] ers (VALIUM) 5 5-02 by mouth ity o f mg tablet 19:24: at [place] [address] bedtime. Medical Branch amlodipine 2019-0 Yes 1{tbl} Take 1 [facility] vers besylate/be 5-02 tablet by ity of nazepril 19:24: mouth 3 [place] (AMLODIPINE 36 (three) Medic al -BENAZEPRIL times Branch ORAL) daily. carvedilol 2019-0 Yes 6.25mg Take 6.25 [facility] 6.25 mg 5-02 mg by ity of tablet 19:24: mouth 2 [place] [address] (two) Medical times Branch daily with meals. furosemide 2019-0 Yes 80mg Take 80 mg [facility] nivers (LASIX) 80 5-02 by mouth 3 ity of mg tablet 19:24: (three) [place] [address] times Medical daily. Branch hydralAZINE 2019-0 Yes 50mg Take 50 mg [facility] 50 mg 5-02 by mouth ity of tablet 19:24: every 8 [place] [address] (eight) Medical hours. Branch calcium 2019-0 Yes 2001mg Take 2,001 Un seun acetate 667 5-02 mg by ity of mg capsule 19:24: mouth 3 [place] (three) Medical times Branch daily with meals. vitamin b 2019- Yes 1{tbl} Take 1 [facility] ers complex-vit 5-02 tablet by ity of villatoro 19:24: mouth [place] c-folic 36 daily. Medical acid Branch (FAUZIA-CONOR) 0.8 mg tablet tamsulosin 2019-0 Yes Take by [facility] vers 0.4 mg 24 5-02 mouth ity of hr capsule 19:24: daily. [place] [address] Medical Branch zolpidem 10 2018-0 Yes 10mg Take 10 mg [facility] mg tablet 5-02 by mouth ity of 19:24: at bedtime [place] [address] as needed Medical for Branch Insomnia. diazePAM 2019-0 Yes 5mg Take 5 mg [facility] ers (VALIUM) 5 5-02 by mouth ity o f mg tablet 19:24: at [place] [address] bedtime. Medical Branch amlodipine 2019-0 Yes 1{tbl} Take 1 [facility] vers besylate/be 5-02 tablet by ity of nazepril 19:24: mouth 3 [place] (AMLODIPINE 36 (three) Medic al -BENAZEPRIL times Branch ORAL) daily. carvedilol 2019-0 Yes 6.25mg Take 6.25 [facility] 6.25 mg 5-02 mg by ity of tablet 19:24: mouth 2 [place] 36 (two) Medical times Branch daily with meals. furosemide 2019-0 Yes 80mg Take 80 mg [facility] n[facility] (LASIX) 80 5-02 by mouth 3 ity of mg tablet 19:24: (three) [place] [address] times Medical daily. Branch hydralAZINE 2019-0 Yes 50mg Take 50 mg [facility] 50 mg 5-02 by mouth ity of tablet 19:24: every 8 [place] [address] (eight) Medical hours. Branch calcium 2019-0 Yes 2001mg Take 2,001 Un seun acetate 667 5-02 mg by ity of mg capsule 19:24: mouth 3 [place] (three) Medical times Branch daily with meals. vitamin b 2019-0 Yes 1{tbl} Take 1 [facility] ers complex-vit 5-02 tablet by ity of villatoro 19:24: mouth [place] c-folic 36 daily. Medical acid Branch (FAUZIA-CONOR) 0.8 mg tablet tamsulosin 2019-0 Yes Take by [facility] vers 0.4 mg 24 5-02 mouth ity of hr capsule 19:24: daily. [place] [address] Medical Branch zolpidem 10 2019-0 Yes 10mg Take 10 mg [facility] mg tablet 5-02 by mouth ity of 19:24: at bedtime [place] [address] as needed Medical for Branch Insomnia. diazePAM 2019-0 Yes 5mg Take 5 mg [facility] ers (VALIUM) 5 5-02 by mouth ity o f mg tablet 19:24: at [place] [address] bedtime. Medical Branch amlodipine 2019-0 Yes 1{tbl} Take 1 [facility] vers besylate/be 5-02 tablet by ity of nazepril 19:24: mouth 3 [place] (AMLODIPINE 36 (three) Medic al -BENAZEPRIL times Branch ORAL) daily. carvedilol 2019-0 Yes 6.25mg Take 6.25 [facility] 6.25 mg 5-02 mg by ity of tablet 19:24: mouth 2 [place] 36 (two) Medical times Branch daily with meals. furosemide 2019-0 Yes 80mg Take 80 mg [facility] n[facility] (LASIX) 80 5-02 by mouth 3 ity of mg tablet 19:24: (three) [place] [address] times Medical daily. Branch hydralAZINE 2019-0 Yes 50mg Take 50 mg [facility] 50 mg 5-02 by mouth ity of tablet 19:24: every 8 [place] [address] (eight) Medical hours. Branch calcium 2019-0 Yes 2001mg Take 2,001 Un seun acetate 667 5-02 mg by ity of mg capsule 19:24: mouth [facility] [place] [facility] times Branch daily with meals. vitamin b 2019-0 Yes 1{tbl} Take 1 [facility] ers complex-vit 5-02 tablet by ity of villatoro 19:24: mouth [place] c-folic 36 daily. Medical acid Branch (FAUZIA-CONOR) 0.8 mg tablet tamsulosin 2019-0 Yes Take by [facility] vers 0.4 mg 24 5-02 mouth ity of hr capsule 19:24: daily. [place] [address] Medical Branch zolpidem 10 Yes 10mg Take 10 mg [facility] mg tablet 5-02 by mouth ity of 19:24: at bedtime [place] [address] as needed Medical for Branch Insomnia. diazePAM 2018- Yes 5mg Take 5 mg [facility] ers (VALIUM) 5 5-02 by mouth ity o f mg tablet 19:24: at [place] [address] bedtime. Medical Branch amlodipine 2019-0 Yes 1{tbl} Take 1 [facility] vers besylate/be 5-02 tablet by ity of nazepril 19:24: mouth 3 [place] (AMLODIPINE 36 (three) Medic al -BENAZEPRIL times Branch ORAL) daily. carvedilol 2018-0 Yes 6.25mg Take 6.25 [facility] 6.25 mg 5-02 mg by ity of tablet 19:24: mouth 2 [place] [address] (two) Medical times Branch daily with meals. furosemide 0 Yes 80mg Take 80 mg [facility] nivers (LASIX) 80 5-02 by mouth 3 ity of mg tablet 19:24: (three) [place] [address] times Medical daily. Branch hydralAZINE Yes 50mg Take 50 mg [facility] 50 mg 5-02 by mouth ity of tablet 19:24: every 8 [place] [address] (eight) Medical hours. Branch calcium 2018-0 Yes 2001mg Take 2,001 Un seun acetate 667 5-02 mg by ity of mg capsule 19:24: mouth [facility] [place] [facility] times Branch daily with meals. vitamin b 2019- Yes 1{tbl} Take 1 [facility] ers complex-vit 5-02 tablet by ity of villatoro 19:24: mouth [place] c-folic 36 daily. Medical acid Branch (FAUZIA-CONOR) 0.8 mg tablet tamsulosin 2018-0 Yes Take by [facility] vers 0.4 mg 24 5-02 mouth ity of hr capsule 19:24: daily. [place] [address] Medical Branch zolpidem 10 Yes 10mg Take 10 mg [facility] mg tablet 5-02 by mouth ity of 19:24: at bedtime [place] [address] as needed Medical for Branch Insomnia. diazePAM 2019- Yes 5mg Take 5 mg [facility] ers (VALIUM) 5 5-02 by mouth ity o f mg tablet 19:24: at [place] [address] bedtime. Medical Branch amlodipine 2019- Yes 1{tbl} Take 1 [facility] vers besylate/be 5-02 tablet by ity of nazepril 19:24: mouth 3 [place] (AMLODIPINE 36 (three) Medic al -BENAZEPRIL times Branch ORAL) daily. carvedilol 2019-0 Yes 6.25mg Take 6.25 [facility] 6.25 mg 5-02 mg by ity of tablet 19:24: mouth 2 [place] [address] (two) Medical times Branch daily with meals. furosemide 2019-0 Yes 80mg Take 80 mg [facility] (LASIX) 80 5-02 by mouth 3 ity of mg tablet 19:24: (three) [place] [address] times Medical daily. Branch hydralAZINE 2018-0 Yes 50mg Take 50 mg [facility] 50 mg 5-02 by mouth ity of tablet 19:24: every 8 [place] [address] (eight) Medical hours. Branch calcium 2018-0 Yes 2001mg Take 2,001 Un seun acetate 667 5-02 mg by ity of mg capsule 19:24: mouth 3 [place] [address] (three) Medical times Branch daily with meals. vitamin b 2019- Yes 1{tbl} Take 1 [facility] ers complex-vit 5-02 tablet by ity of villatoro 19:24: mouth [place] c-folic daily. Medical acid Branch (FAUZIA-CONOR) 0.8 mg tablet tamsulosin 2018-0 Yes Take by [facility] vers 0.4 mg 24 5-02 mouth ity of hr capsule 19:24: daily. [place] [address] Medical Branch zolpidem 10 2018-0 Yes 10mg Take 10 mg [facility] mg tablet 5-02 by mouth ity of 19:24: at bedtime [place] [address] as needed Medical for Branch Insomnia. diazePAM 2019-0 Yes 5mg Take 5 mg [facility] ers (VALIUM) 5 5-02 by mouth ity o f mg tablet 19:24: at [place] [address] bedtime. Medical Branch amlodipine 2019-0 Yes 1{tbl} Take 1 [facility] vers besylate/be 5-02 tablet by ity of nazepril 19:24: mouth 3 [place] (AMLODIPINE 36 (three) Medic al -BENAZEPRIL times Branch ORAL) daily. carvedilol 2019-0 Yes 6.25mg Take 6.25 [facility] 6.25 mg 5-02 mg by ity of tablet 19:24: mouth 2 [place] [address] (two) Medical times Branch daily with meals. furosemide 2019-0 Yes 80mg Take 80 mg [facility] (LASIX) 80 5-02 by mouth 3 ity of mg tablet 19:24: (three) [place] [address] times Medical daily. Branch hydralAZINE 2019-0 Yes 50mg Take 50 mg [facility] 50 mg 5-02 by mouth ity of tablet 19:24: every 8 [place] [address] (eight) Medical hours. Branch calcium 2019-0 Yes 2001mg Take 2,001 Un seun acetate 667 5-02 mg by ity of mg capsule 19:24: mouth 3 [place] (three) Medical times Branch daily with meals. vitamin b 2019-0 Yes 1{tbl} Take 1 [facility] ers complex-vit 5-02 tablet by ity of villatoro 19:24: mouth [place] c-folic 36 daily. Medical acid Branch (FAUZIA-CONOR) 0.8 mg tablet tamsulosin 2019-0 Yes Take by [facility] vers 0.4 mg 24 5-02 mouth ity of hr capsule 19:24: daily. [place] [address] Medical Branch zolpidem 10 2019-0 Yes 10mg Take 10 mg [facility] mg tablet 5-02 by mouth ity of 19:24: at bedtime [place] [address] as needed Medical for Branch Insomnia. diazePAM 2019-0 Yes 5mg Take 5 mg [facility] ers (VALIUM) 5 5-02 by mouth ity o f mg tablet 19:24: at [place] [address] bedtime. Medical Branch amlodipine 2019-0 Yes 1{tbl} Take 1 [facility] vers besylate/be 5-02 tablet by ity of nazepril 19:24: mouth 3 [place] (AMLODIPINE 36 (three) Medic al -BENAZEPRIL times Branch ORAL) daily. carvedilol 2019-0 Yes 6.25mg Take 6.25 [facility] 6.25 mg 5-02 mg by ity of tablet 19:24: mouth 2 [place] [address] (two) Medical times Branch daily with meals. furosemide 2019-0 Yes 80mg Take 80 mg [facility] (LASIX) 80 5-02 by mouth 3 ity of mg tablet 19:24: (three) [place] [address] times Medical daily. Branch hydralAZINE 2019-0 Yes 50mg Take 50 mg [facility] 50 mg 5-02 by mouth ity of tablet 19:24: every 8 [place] 36 (eight) Medical hours. Branch calcium 2019-0 Yes 2001mg Take 2,001 Un seun acetate 667 5-02 mg by ity of mg capsule 19:24: [place] Medical times Branch daily with meals. vitamin b 2019-0 Yes 1{tbl} Take 1 Univ ers complex-vit 5-02 tablet by ity of villatoro 19:24: mouth [place] c-folic 36 daily. Medical acid Branch (FAUZIA-CONOR) 0.8 mg tablet tamsulosin 2019-0 Yes Take by Uni vers 0.4 mg 24 5-02 mouth ity of hr capsule 19:24: daily. [place] [address] Medical Branch zolpidem 10 2019-0 Yes 10mg Take 10 mg [facility] mg tablet 5-02 by mouth ity of 19:24: at bedtime [place] as needed Medical for Branch Insomnia. diazePAM 2019-0 Yes 5mg Take 5 mg Univ ers (VALIUM) 5 5-02 by mouth ity o f mg tablet 19:24: at [place] [address] bedtime. Medical Branch amlodipine 2019-0 Yes 1{tbl} Take 1 Uni vers besylate/be 5-02 tablet by ity of nazepril 19:24: mouth 3 [place] (AMLODIPINE 36 (three) Medic al -BENAZEPRIL times Branch ORAL) daily. carvedilol 2019-0 Yes 6.25mg Take 6.25 Univers 6.25 mg 5-02 mg by ity of tablet 19:24: mouth 2 [place] 36 (two) Medical times Branch daily with meals. furosemide 2019-0 Yes 80mg Take 80 mg U nivers (LASIX) 80 5-02 by mouth 3 ity of mg tablet 19:24: (three) [place] times Medical daily. Branch hydralAZINE 2019-0 Yes 50mg Take 50 mg [facility] 50 mg 5-02 by mouth ity of tablet 19:24: every 8 [place] [address] (eight) Medical hours. Branch calcium 2019-0 Yes 2001mg Take 2,001 Un seun acetate 667 5-02 mg by ity of mg capsule 19:24: mouth [place] ([place] Medical times Branch daily with meals. vitamin b 2019-0 Yes 1{tbl} Take 1 Univ ers complex-vit 5-02 tablet by ity of villatoro 19:24: mouth [place] c-folic daily. Medical acid Branch (FAUZIA-CONOR) 0.8 mg tablet tamsulosin Yes Take by Uni vers 0.4 mg 24 5-02 mouth ity of hr capsule 19:24: daily. [place] [address] Medical Branch zolpidem 10 Yes 10mg Take 10 mg [facility] mg tablet 02 by mouth ity of 19:24: at bedtime [place] [address] as needed Medical for Branch Insomnia. diazePAM Yes 5mg Take 5 mg Univ ers (VALIUM) 5 02 by mouth ity o f mg tablet 19:24: at [place] [address] bedtime. Medical Branch NIFEdipine 2017-10 Yes 60 mg = 1 Me moria 60 mg oral 0-16 tab, PO, l tablet, 17:27: Daily, # Rafael n extended 00 30 tab, 0 release Refill(s), Pharmacy: [facility] #[id number] NIFEdipine 2017-10 Yes 60 mg = 1 Me moria 60 mg oral 0-16 tab, PO, l tablet, 17:27: Daily, # Rafael n extended 00 30 tab, 0 release Refill(s), Pharmacy: [facility] #[id number] NIFEdipine 2017-10 Yes 60 mg = 1 Me moria 60 mg oral 0-16 tab, PO, l tablet, 17:27: Daily, # Rafael n extended 00 30 tab, 0 release Refill(s), Pharmacy: [facility] #[id number] heparin 2017-10 No 10,000 Memoria 0-16 unit, 10 l 15:21: mL, Route: [place] 00 DIALYSIS, Drug form: INJ, ONCALL, Dosing [...] 0-16 unit, 10 l 15:21: mL, Route: [place] 00 DIALYSIS, Drug form: INJ, ONCALL, Dosing [...] 0-15 unit, 10 l 13:00: mL, Route: [place] 00 DIALYSIS, Drug form: INJ, ONCALL, Dosing Weight 102.273, kg, Start date: 07/23/18 8:00:00 CDT, Duration: 1 doses or times heparin 2017-10 No 10,000 Memoria 0-15 unit, 10 l 13:00: mL, Route: DIALYSIS, Drug form: INJ, ONCALL, Dosing Weight 102.273, kg, Start date: 07/23/18 8:00:00 CDT, Duration: 1 doses or times heparin 2017-10 No 10,000 Memoria 0-15 unit, 10 l 13:00: mL, Route: DIALYSIS, [...] date: 07/24/18 7:21:00 CDT, 2.23, m2 Sodium 2017- No 2,000 mL, Memori a Chloride 0-15 Rate: for l 0.9% IV 12:22: dialysis, [place] nn 2,000 mL 00 Route: IV, Dosing Weight 102.273 kg, Total Volume: 2,000, Start date: 07/23/18 7:22:00 CDT, Duration: 1 day, Stop date: 07/24/18 7:21:00 CDT, 2.23, m2 zolpidem 2017- No 10 mg, Memoria 0-15 Route: PO, l 02:00: Drug form: [place] 00 TAB, Bedtime, Dosing Weight 102.273, kg, Start date: 07/22/18 21:00:00 CDT, Duration: 30 day, 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 date: 08/20/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 tamsulosin 2017-10 No Notes: Memor ia 0-15 (Same As: l 02:00: Flomax) [place] 00 "Do Not Crush" zolpidem 2017- No 10 mg, Memoria 0-15 Route: PO, l 02:00: Drug form: [place] 00 TAB, Bedtime, Dosing Weight 102.273, kg, Start date: 07/22/18 21:00:00 CDT, Duration: 30 day, Stop date: 08/20/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 Take 1 hour before or 2 hours after meal; "Avoid grapefruit and grapefruit juice". Do not crush multivitami 2017-10 No Notes: Kojo lynn n 0-14 (Same l 14:00: as:One Tab [place] 00 Daily, Tab-A-Conor + Beta Carotene) Give with food. Hydralazine 2017-10 No Notes: Kojo lynn Hydrochlori 0-14 (Same as: l de 50 MG 14:00: Apresoline Her meeks Oral Tablet 00 ) May interfere w/enteral feedings Take With Food Lasix 2017-10 No Notes: Memoria 0-14 (Same as: l 14:00: Lasix) [place] 00 May cause GI upset. Give with food or milk. carvedilol 2017-10 No Notes: Memor ia 0-14 Give with l 14:00: food. [place] 00 (Same As: Coreg) calcium 2017-10 No Notes: Memoria acetate 667 0-14 Same as l MG Oral 14:00: Phoslo Gel Herm dionne Capsule 00 Cap Amlodipine 2017-10 No Notes: Memor ia 0-14 (Same as: l 14:00: Norvasc) [place] 00 Docusate 2017-10 No Notes: Memoria 0-14 (Same as: l 14:00: Colace) [place] 00 (Do Not Crush) NIFEdipine 2017-10 No Notes: Memor ia 60 mg oral 0-14 (Same as: l tablet, 14:00: Adalat CC, Herm dionne extended 00 Procardia release XL) Give on empty stomach. Take 1 hour before or 2 hours after meal; "Avoid grapefruit and grapefruit juice". Do not crush multivitami 2017-10 No Notes: Kojo lynn n 0-14 (Same l 14:00: as:One Tab [place] 00 Daily, Tab-A-Conor + Beta Carotene) Give with food. Hydralazine 2017-10 No Notes: Kojo lynn Hydrochlori 0-14 (Same as: l de 50 MG 14:00: Apresoline Her meeks Oral Tablet 00 ) May interfere w/enteral feedings Take With Food Lasix 2017-10 No Notes: Memoria 0-14 (Same as: l 14:00: Lasix) [place] 00 May cause GI upset. Give with food or milk. carvedilol 2017-10 No Notes: Memor ia 0-14 Give with l 14:00: food. [place] 00 (Same As: Coreg) calcium 2017-10 No Notes: Memoria acetate 667 0-14 Same as l MG Oral 14:00: Phoslo Gel Herm dionne Capsule 00 Cap Amlodipine 2017-10 No Notes: Memor ia 0-14 (Same as: l 14:00: Norvasc) [place] 00 Docusate 2017-10 No Notes: Memoria 0-14 (Same as: l 14:00: Colace) [place] 00 (Do Not Crush) NIFEdipine 2017-10 No Notes: Memor ia 60 mg oral 0-14 (Same as: l tablet, 14:00: Adalat CC, Herm dionne extended 00 Procardia release XL) Give on empty stomach. Take 1 hour before or 2 hours after meal; "Avoid grapefruit and grapefruit juice". Do not crush multivitami 2017-10 No Notes: Kojo lynn n 0-14 (Same l 14:00: as:One Tab [place] 00 Daily, Tab-A-Conor + Beta Carotene) Give with food. Hydralazine 2017-10 No Notes: Kojo lynn Hydrochlori 0-14 (Same as: l de 50 MG 14:00: Apresoline Her meeks Oral Tablet 00 ) May interfere w/enteral feedings Take With Food Lasix 2017-10 No Notes: Memoria 0-14 (Same as: l 14:00: Lasix) [place] 00 May cause GI upset. Give with food or milk. carvedilol 2017-10 No Notes: Memor ia 0-14 Give with l 14:00: food. [place] 00 (Same As: Coreg) calcium 2017-10 No Notes: Memoria acetate 667 0-14 Same as l MG Oral 14:00: Phoslo Gel Herm dionne Capsule 00 Cap Amlodipine 2017-10 No Notes: Memor ia 0-14 (Same as: l 14:00: Norvasc) [place] 00 Docusate 2017-10 No Notes: Memoria 0-14 (Same as: l 14:00: Colace) [place] 00 (Do Not Crush) carvedilol 2017-10 Yes 37.5 mg = Me moria 12.5 mg 0-14 3 tab, PO, l oral tablet 11:45: BID, 0 Herm dionne 00 Refill(s) calcium 2017-10 Yes See Memoria acetate 667 0-14 Instructio l MG Oral 11:45: ns, 0 [place] Capsule 00 Refill(s) Hydralazine 2017-10 Yes 50 mg, PO, Memoria 0-14 TID, 0 l 11:45: Refill(s) [place] Amlodipine 2017-10 Yes 1 cap, PO, M emoria 10 MG / 0-14 TID, 0 l Benazepril 11:45: Refill(s) He rmann hydrochlori 00 de 20 MG Oral Capsule carvedilol 2017-10 Yes 37.5 mg = Me moria 12.5 mg 0-14 3 tab, PO, l oral tablet 11:45: BID, 0 Herm dionne 00 Refill(s) calcium 2017-10 Yes See Memoria acetate 667 0-14 Instructio l MG Oral 11:45: ns, 0 [place] Capsule 00 Refill(s) Hydralazine 2017-10 Yes 50 mg, PO, Memoria 0-14 TID, 0 l 11:45: Refill(s) [place] Amlodipine 2017-10 Yes 1 cap, PO, M emoria 10 MG / 0-14 TID, 0 l Benazepril 11:45: Refill(s) Jarad rmann hydrochlori 00 de 20 MG Oral Capsule carvedilol 2017-10 Yes 37.5 mg = Me moria 12.5 mg 0-14 3 tab, PO, l oral tablet 11:45: BID, 0 Herm dionne 00 Refill(s) calcium 2017-10 Yes See Memoria acetate 667 0-14 Instructio l MG Oral 11:45: ns, 0 [place] Capsule 00 Refill(s) Hydralazine 2017-10 Yes 50 mg, PO, Memoria 0-14 TID, 0 l 11:45: Refill(s) [place] Amlodipine 2017-10 Yes 1 cap, PO, M [...] milk [place] [Xanax] 00 (Same as: Xanax) Hydroxyzine 2017-10 No Notes: Kojo lynn Hydrochlori 0-14 (Same as: l de 25 MG 11:31: Atarax) Rafael n Oral Tablet 00 Avoid alcohol. Alprazolam 2017-10 No Notes: Memor ia 2 MG Oral 0-14 With food l Tablet 11:31: or milk [place] [Xanax] 00 (Same as: Xanax) Hydroxyzine 2017-10 No Notes: Kojo lynn Hydrochlori 0-14 (Same as: l de 25 MG 11:31: Atarax) [place] n Oral Tablet 00 Avoid alcohol. Alprazolam 2017-10 No Notes: Memor ia 2 MG Oral 0-14 With food l Tablet 11:31: or milk [place] [Xanax] 00 (Same as: Xanax) Dilaudid 2017-10 No Notes: Memoria 0-14 Same as: l 11:27: Dilaudid [place] 00 Dilaudid 2017-10 No Notes: Memoria 0-14 Same as: l 11:27: Dilaudid [place] 00 Dilaudid 2017-10 No Notes: Memoria 0-14 Same as: l 11:27: Dilaudid [place] 00 Dilaudid 2017-10 No 1 mg, Memoria 0-14 Route: l 09:04: IVP, ONCE, [place] 00 Dosing Weight 96.7, kg, Priority: STAT, Start date: 07/22/18 4:04:00 CDT, Stop date: 07/22/18 4:04:00 CDT Dilaudid 2017-10 No 1 mg, Memoria 0-14 Route: l 09:04: IVP, ONCE, [place] 00 Dosing Weight 96.7, kg, Priority: STAT, [...] 0-14 unit, 10 l 06:00: mL, Route: [place] 00 DIALYSIS, Drug form: INJ, ONCALL, Dosing Weight 96.7, kg, Start date: 07/22/18 1:00:00 CDT, Duration: 1 doses or times heparin 2017-10 No 10,000 Memoria 0-14 unit, 10 l 06:00: mL, Route: [place] 00 DIALYSIS, Drug form: INJ, ONCALL, Dosing Weight 96.7, kg, Start date: 07/22/18 1:00:00 CDT, Duration: 1 doses or times heparin 2017-10 No 10,000 Memoria 0-14 unit, 10 l 06:00: mL, Route: [place] 00 DIALYSIS, Drug form: INJ, ONCALL, Dosing Weight 96.7, kg, Start date: 07/22/18 1:00:00 CDT, Duration: 1 doses or times Mannitol 2018-1 No Notes: Memoria 0-14 (Same as: l 05:43: Osmitrol) [place] 00 Infuse through 5 micron or smaller [...] Duration: 30 day, Stop date: 08/21/18 0:42:00 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 [place] 00 (Same as: Tylenol) Morphine 2017-10 No Notes: Memoria 0-14 Preservati l 05:22: ve free. [place] 00 (Same as: Morphine Sulfate-PF ) Ondansetron 2017-10 No Notes: Kojo lynn 0-14 (Same as: l 05:22: Zofran) [place] 00 MEDICATION WASTE Product Size: 4 mg Product Wasted: ___ mg Acetaminoph 2017-10 No Notes: Do M emoria en 0-14 not exceed l 05:22: 4 gm/day. [place] 00 (Same as: Tylenol) Morphine 2017-10 No Notes: Memoria 0-14 Preservati l 05:22: ve free. [place] 00 (Same as: Morphine Sulfate-PF ) Ondansetron 2017-10 No Notes: Kojo lynn 0-14 (Same as: l 05:22: Zofran) [place] 00 MEDICATION WASTE Product Size: 4 mg Product Wasted: ___ mg Acetaminoph 2017-10 No Notes: Do M emoria en 0-14 not exceed l 05:22: 4 gm/day. [place] 00 (Same as: Tylenol) Morphine 2017-10 No Notes: Memoria 0-14 Preservati l 05:22: ve free. [place] 00 (Same as: Morphine Sulfate-PF ) Ondansetron 2017-10 No Notes: Ok[place] lynn 0-14 (Same as: l 05:22: Zofran) [place] 00 MEDICATION WASTE Product Size: 4 mg Product Wasted: ___ mg Dilaudid 2017-10 No Notes: Memoria 0-14 Same as: l 05:07: Dilaudid [place] Dilaudid 2017-10 No Notes: Memoria 0-14 Same as: l 05:07: Dilaudid [place] Dilaudid 2017-10 No Notes: Memoria 0-14 Same as: l 05:07: Dilaudid [place] 00 Zofran 2017-10 No Notes: Memoria 0-14 (Same as: l 04:47: Zofran) [place] 00 MEDICATION WASTE Product Size: 4 mg Product Wasted: ___ mg Zofran 2017-10 No Notes: Memoria 0-14 (Same as: l 04:47: Zofran) [place] 00 MEDICATION WASTE Product Size: 4 mg Product Wasted: ___ mg Zofran 2017-10 No Notes: Memoria 0-14 (Same as: l 04:47: Zofran) [place] 00 MEDICATION WASTE Product Size: 4 mg Product Wasted: ___ mg Dilaudid 2017-10 No Notes: Memoria 0-14 Same as: l 04:46: Dilaudid [place] 00 Dilaudid 2017-10 No Notes: Memoria 0-14 Same as: l 04:46: Dilaudid [place] 00 Dilaudid 2017-10 No Notes: Memoria 0-14 Same as: l 04:46: Dilaudid [place] 00 Hydromorpho 2017-10 No Notes: Kojo lynn ne 0-14 Same as: l 04:13: Dilaudid [place] 00 Hydromorpho 2017-10 No Notes: Kojo lynn ne 0-14 Same as: l 04:13: Dilaudid [place] 00 Hydromorpho 2017-10 No Notes: Kojo lynn ne 0-14 Same as: l 04:13: Dilaudid [place] 00 Saline 2017-10 No Notes: Memoria Flush 0.9% 0-14 (Same as: l 02:24: BD [place] 00 Posiflush) Saline 2017-10 No Notes: Memoria Flush 0.9% 0-14 (Same as: l 02:24: BD [place] 00 Posiflush) Saline 2017-10 No Notes: Memoria Flush 0.9% 0-14 (Same as: l 02:24: BD [place] 00 Posiflush) lactulose 2017-10 No = 1 [...] tab, PO, l tablet 16:49: Daily, 0 [place] 00 Refill(s) Ascorbic Yes 1 tab, PO, Mem oria [...] tab, PO, l tablet 16:49: Daily, 0 [place] 00 Refill(s) Ascorbic Yes 1 tab, PO, Mem oria [...] tab, PO, l Tablet 16:49: PRN, 0 [place] 00 Refill(s) amLODIPine 2018-0 Yes 10 mg = 1 Me moria 10 mg oral 8-14 tab, PO, l tablet 16:49: Daily, 0 [place] 00 Refill(s) tamsulosin 2017-0 No Notes: Memor ia 04-16 (Same As: l 02:00: Flomax) [place] "Do Not Crush" tamsulosin 2017-0 No Notes: Memor ia 04-16 (Same As: l 02:00: Flomax) [place] "Do Not Crush" tamsulosin 0 No Notes: Memor ia 04-16 (Same As: l 02:00: Flomax) [place] "Do Not Crush" Hydralazine 2017-0 Yes 50 mg = 1 M emoria Hydrochlori 7-08 tab, PO, l de 50 MG 20:33: TID, # 90 Herm dionne Oral Tablet 00 tab, 0 Refill(s) NIFEdipine 2017-0 Yes 60 mg = 1 Me moria 60 mg oral 08 tab, PO, l tablet, 20:33: Daily, # Rafael n extended 00 30 tab, 0 release Refill(s) carvedilol 2017-0 Yes 3.125 mg = M emoria 3.125 mg 04-15 1 tab, PO, l oral tablet 20:33: Q12H, # 60 [place] 00 tab, 0 Refill(s) Hydralazine 2017-0 Yes 50 mg = 1 M emoria Hydrochlori 08 tab, PO, l de 50 MG 20:33: TID, # 90 Herm dionne Oral Tablet 00 tab, 0 Refill(s) NIFEdipine 2018-0 Yes 60 mg = 1 Me moria 60 mg oral -08 tab, PO, l tablet, 20:33: Daily, # Rafael n extended 00 30 tab, 0 release Refill(s) carvedilol 2018-0 Yes 3.125 mg = M emoria 3.125 mg 7-08 1 tab, PO, l oral tablet 20:33: Q12H, # 60 [place] 00 tab, 0 Refill(s) Hydralazine 2018-0 Yes 50 mg = 1 M emoria Hydrochlori 7-08 tab, PO, l de 50 MG 20:33: TID, # 90 Herm dionne Oral Tablet 00 tab, 0 Refill(s) NIFEdipine Yes 60 mg = 1 Me moria 60 mg oral 7-08 tab, PO, l tablet, 20:33: Daily, # Rafael n extended 00 30 tab, 0 release Refill(s) carvedilol Yes 3.125 mg = M emoria 3.125 mg 08 1 tab, PO, l oral tablet 20:33: Q12H, # 60 [place] 00 tab, 0 Refill(s) Potassium No Notes: [...] s with feeding tube less than 14 [place] (Dobhoff, J-tube etc) and pediatric and patients. With food and full glass of water Potassium No Notes: Memori a Chloride 04-15 (Same as: l 20:22: K-Dur 20) [place] 00 "Do Not Crush" For patients unable to swallow tablet, dissolve in one half glass of water. Allow about 2 minutes for the tablets to disintegra te. Stir before giving to prepare slurry and administer . Please exclude Patient s with feeding tube less than 14 [place] (Dobhoff, J-tube etc) and pediatric and patients. [...] s with feeding tube less than 14 [place] (Dobhoff, J-tube etc) and pediatric and patients. With food and full glass of water Hydralazine No Notes: Kojo lynn Hydrochlori 04-15 (Same as: l de 25 MG 14:00: Apresoline Her meeks Oral Tablet 00 ) May interfere w/enteral feedings Take With Food. Lasix No Notes: Memoria 7-08 (Same as: l 14:00: Lasix) [place] 00 May cause GI upset. Give with food or milk. Acetaminoph 2018 No 1 tab, Kojo lynn en 325 MG / 08 Route: PO, l Oxycodone 14:00: Drug Form: Jarad rider Hydrochlori 00 TAB, de 5 MG Dosing Oral Tablet Weight [Percocet 74.091, 5/325] kg, BID, Start date: 04/15/18 9:00:00 CDT, Duration: 30 day, Stop date: 05/14/18 17:00:00 CDT carvedilol No Notes: Memor ia 7-08 Give with l 14:00: food. [place] (Same As: Coreg) calcium No Notes: Memoria acetate 667 7-08 Same as l MG Oral 14:00: Phoslo Gel Herm dionne Capsule 00 Cap Amlodipine No Notes: Memor ia 7-08 (Same as: l 14:00: Norvasc) [place] Hydralazine No Notes: Kojo lynn Hydrochlori 7-08 (Same as: l de 25 MG 14:00: Apresoline Her meeks Oral Tablet 00 ) May interfere w/enteral feedings Take With Food. Lasix No Notes: Memoria 7-08 (Same as: l 14:00: Lasix) [place] 00 May cause GI upset. Give with food or milk. Acetaminoph No 1 tab, Kojo lynn en 325 MG / 08 Route: PO, l Oxycodone 14:00: Drug Form: Jarad rider Hydrochlori 00 TAB, [...] l MG Oral 14:00: Phoslo Gel Herm dionne Capsule 00 Cap Amlodipine 2018-0 No Notes: Memor ia 7-08 (Same as: l 14:00: Norvasc) [place] 00 Hydralazine No Notes: Kojo lynn Hydrochlori 7-08 (Same as: l de 25 MG 14:00: Apresoline Her meeks Oral Tablet 00 ) May interfere w/enteral feedings Take With Food. Lasix No Notes: Memoria 7-08 (Same as: l 14:00: Lasix) [place] 00 May cause GI upset. Give with food or milk. Acetaminoph 0 No 1 tab, Kojo lynn en 325 MG / 04-15 Route: PO, l Oxycodone 14:00: Drug Form: Jarad rider Hydrochlori 00 TAB, de 5 MG Dosing Oral Tablet Weight [Percocet 74.091, 5/325] kg, BID, Start date: 04/15/18 9:00:00 CDT, Duration: 30 day, Stop date: 05/14/18 17:00:00 CDT carvedilol No Notes: Memor ia 7-08 Give with l 14:00: food. [place] 00 (Same As: Coreg) calcium No Notes: Memoria acetate 667 7-08 Same as l MG Oral 14:00: Phoslo Gel Herm dionne Capsule Cap Amlodipine No Notes: Memor ia 7-08 (Same as: l 14:00: Norvasc) [place] 00 Morphine 2017-0 No 2 mg, 1 Memori a 7-08 mL, Route: l 09:49: IVP, Drug [place] form: SOLN, Q4H, Dosing Weight 87.784, kg, PRN Pain Score 6-10, Start date: 04/15/18 4:49:00 CDT, Duration: 30 day, Stop date: 05/15/18 4:48:00 CDT Morphine 2017-0 No 2 mg, 1 Memori a 7-08 mL, Route: l 09:49: IVP, Drug [place] form: SOLN, Q4H, Dosing Weight 87.784, kg, PRN Pain Score 6-10, Start date: 04/15/18 4:49:00 CDT, Duration: 30 day, Stop date: 05/15/18 4:48:00 CDT Morphine 2018-0 No 2 mg, 1 Memori a 7-08 mL, Route: l 09:49: IVP, Drug form: SOLN, Q4H, Dosing Weight 87.784, kg, PRN Pain Score 6-10, Start date: 04/15/18 4:49:00 CDT, Duration: 30 day, Stop date: 05/15/18 4:48:00 CDT Ambien No Notes: Memoria - (Same As: l 08:47: Ambien) [place] 00 Ambien No Notes: Memoria 04-15 (Same As: l 08:47: Ambien) [place] 00 Ambien No Notes: Memoria - (Same As: l 08:47: Ambien) Hydroxyzine 2017- Yes 25 mg = 1 M emoria Hydrochlori 7-08 tab, PO, l de 25 MG 08:12: TID, PRN [place] nn Oral Tablet 00 Anxiety, # 40 tab, 0 Refill(s) Hydroxyzine Yes 25 mg = 1 M [...] e. Expires in days from ____Date Dextrose No 25 gm, 50 Kojo lynn 50% Syringe 7-08 mL, Route: l 07:15: IVP, Drug Form: INJ, Dosing Weight 74.091, kg, PRN, PRN Blood Glucose Results, Start date: 04/15/18 2:15:00 CDT, Duration: 30 day, Stop date: 05/15/18 2:14:00 CDT Glucagon 2018-0 No 1 mg, Memoria 04-15 Route: IM, l 07:15: Drug form: [place] 00 PDR/INJ, PRN, Dosing Weight 74.091, kg, PRN Blood Glucose Results, Start date: 04/15/18 2:15:00 CDT, Duration: 30 day, Stop date: 05/15/18 2:14:00 CDT Insulin 2018-0 No Notes: Memoria Lispro -08 (Same as: l 07:15: Humalog ) [place] 00 Roll in palms of hands gently; Do not shake `vigorousl y. "Single Patient Use Only " WASTE: F/P - Black; E - Municipal Trash Bin Stable for 28 days at room temperatur e. Expires in days from ____Date Dextrose 2018-0 No 25 gm, 50 Kojo lynn 50% Syringe 7-08 mL, Route: l 07:15: IVP, Drug [place] 00 Form: INJ, Dosing Weight 74.091, kg, PRN, PRN Blood Glucose Results, Start date: 04/15/18 2:15:00 CDT, Duration: 30 day, Stop date: 05/15/18 2:14:00 CDT Glucagon 2018-0 No 1 mg, Memoria 04-15 Route: IM, l 07:15: Drug form: [place] 00 PDR/INJ, PRN, Dosing Weight 74.091, kg, PRN Blood Glucose Results, Start date: 04/15/18 2:15:00 CDT, Duration: 30 day, Stop date: 05/15/18 2:14:00 CDT Insulin 2018-0 No Notes: Memoria Lispro 7-08 (Same as: l 07:15: Humalog ) [place] 00 Roll in palms of hands gently; Do not shake `vigorousl y. "Single Patient Use Only " WASTE: F/P - Black; E - Municipal Trash Bin Stable for 28 days at room temperatur e. Expires in days from ____Date Dextrose 2018-0 No 25 gm, 50 Kojo lynn 50% Syringe 7-08 mL, Route: l 07:15: IVP, Drug [place] 00 Form: INJ, Dosing Weight 74.091, kg, PRN, PRN Blood Glucose Results, Start date: 04/15/18 2:15:00 CDT, Duration: 30 day, Stop date: 05/15/18 2:14:00 CDT Glucagon 2017- No 1 mg, Memoria 04-15 Route: IM, l 07:15: Drug form: [place] 00 PDR/INJ, PRN, Dosing Weight 74.091, kg, PRN Blood Glucose Results, Start date: 04/15/18 2:15:00 CDT, Duration: 30 day, Stop date: 05/15/18 2:14:00 CDT Ergocalcife 2017-0 No 50,000 Kojo lynn rol [id number] 7-08 IntlUnit, l UNT Oral 07:00: 1 cap, [place] Capsule 00 Route: PO, Drug form: CAP, qWeek, Dosing Weight 74.091, kg, Start date: 04/15/18 2:00:00 CDT, Duration: 30 day, Stop date: 05/13/18 9:00:00 CDT Ergocalcife 2017-0 No 50,000 Kojo lynn rol [id number] 7-08 IntlUnit, l UNT Oral 07:00: 1 cap, [place] Capsule 00 Route: PO, Drug form: CAP, qWeek, Dosing Weight 74.091, kg, Start date: 04/15/18 2:00:00 CDT, Duration: 30 day, Stop date: 05/13/18 9:00:00 CDT Ergocalcife 2017-0 No 50,000 Kojo lynn rol [id number] 7-08 IntlUnit, l UNT Oral 07:00: 1 cap, [place] Capsule 00 Route: PO, Drug form: CAP, qWeek, Dosing Weight 74.091, kg, Start date: 04/15/18 2:00:00 CDT, Duration: 30 day, Stop date: 05/13/18 9:00:00 CDT Alprazolam 2017-0 No Notes: Memor ia 2 MG Oral 04-15 With food l Tablet 06:56: or milk [place] [Xanax] 00 (Same as: Xanax) Alprazolam 2017-0 No Notes: Memor ia 2 MG Oral 7-08 With food l Tablet 06:56: or milk [place] [Xanax] 00 (Same as: Xanax) Alprazolam 2017-0 No Notes: Mem[facility] 2 MG Oral 7-08 With food l Tablet 06:56: or milk [place] [Xanax] 00 (Same as: Xanax) NS (Bolus) 2018-0 No 250 mL, Kojo lynn IV 7-08 500 ml/hr, l 06:34: Infuse [place] 00 Over: 0.5 hr, Route: IV, 250, Drug form: INJ, ONCE, Priority: STAT, Dosing Weight 74.091 kg, Start date: 04/15/18 1:34:00 CDT, Stop date: 04/15/18 1:34:00 CDT NS (Bolus) 2018-0 No 250 mL, Kojo lynn IV 7-08 500 ml/hr, l 06:34: Infuse [place] 00 Over: 0.5 hr, Route: IV, 250, Drug form: INJ, ONCE, Priority: STAT, Dosing Weight 74.091 kg, Start date: 04/15/18 1:34:00 CDT, Stop date: 04/15/18 1:34:00 CDT NS (Bolus) 2018-0 No 250 mL, Kojo lynn IV 7-08 500 ml/hr, l 06:34: Infuse [place] 00 Over: 0.5 hr, Route: IV, 250, Drug form: INJ, ONCE, Priority: STAT, Dosing Weight 74.091 kg, Start date: 04/15/18 1:34:00 CDT, Stop date: 04/15/18 1:34:00 CDT Hydralazine 2017-0 No 10 mg, Kojo lynn 7-08 Route: l 06:27: IVP, ONCE, Dosing Weight 74.091, kg, Priority: STAT, Start date: 04/15/18 1:27:00 CDT, Stop date: 04/15/18 1:27:00 CDT Hydralazine 2018-0 No 10 mg, Kojo lynn 7-08 Route: l 06:27: IVP, ONCE, Dosing Weight 74.091, kg, Priority: STAT, Start date: 04/15/18 1:27:00 CDT, Stop date: 04/15/18 1:27:00 CDT Hydralazine 2017-0 No 10 mg, Kojo lynn 7-08 Route: l 06:27: IVP, ONCE, Dosing Weight 74.091, kg, Priority: STAT, Start date: 04/15/18 1:27:00 CDT, Stop date: 04/15/18 1:27:00 CDT Amlodipine 2017-0 No Notes: Memor ia 7-08 (Same as: l 03:50: Norvasc) Hydralazine 2017-0 No Notes: Kojo lynn 7-08 (Same as: l 03:50: Apresoline ) Push over 5 minutes Amlodipine 2017-0 No Notes: Memor ia 7-08 (Same as: l 03:50: Norvasc) Hydralazine 2017-0 No Notes: Kojo lynn 7-08 (Same as: l 03:50: Apresoline ) Push over 5 minutes Amlodipine 2017-0 No Notes: Memor ia 7-08 (Same as: l 03:50: Norvasc) Hydralazine 2017-0 No Notes: Kojo lynn 7-08 (Same as: l 03:50: Apresoline ) Push over 5 minutes Clonidine 2017-0 No 0.1 mg, Memor ia Hydrochlori 7-08 Route: PO, l de 0.1 MG 03:02: Drug form: He rmann Oral Tablet 00 TAB, ONCE, Dosing Weight 74.091, kg, Priority: STAT, Start date: 04/14/18 22:02:00 CDT, Stop date: 04/14/18 22:02:00 CDT Clonidine 2017-0 No 0.1 mg, Memor ia Hydrochlori 7-08 Route: PO, l de 0.1 MG 03:02: Drug form: He rmann Oral Tablet 00 TAB, ONCE, Dosing Weight 74.091, kg, Priority: STAT, Start date: 04/14/18 22:02:00 CDT, Stop date: 04/14/18 22:02:00 CDT Clonidine 2018-0 No 0.1 mg, Memor ia Hydrochlori 7-08 Route: PO, l de 0.1 MG 03:02: Drug form: Jarad rmann Oral Tablet 00 TAB, ONCE, Dosing [...] 6-11 unit, 10 l 15:00: mL, Route: [place] 00 DIALYSIS, Drug form: INJ, ONCALL, Dosing [...] 6-11 unit, 10 l 15:00: mL, Route: [place] 00 DIALYSIS, Drug form: INJ, ONCALL, Dosing [...] 6-11 Rate: l 0.9% IV 14:14: 2000, [place] 1,000 mL 00 Route: IV, Dosing Weight 100.455 kg, Total Volume: 1,000, Start date: 03/19/18 9:14:00 CDT, Duration: 1 doses or times, Stop date: 03/20/18 9:13:00 CDT, 2.19, m2 Sodium 2017- No 1,000 mL, Memori a Chloride 6-11 Rate: l 0.9% IV 14:14: 2000, [place] 1,000 mL 00 Route: IV, Dosing Weight 100.455 kg, Total Volume: 1,000, Start date: 03/19/18 9:14:00 CDT, Duration: 1 doses or times, Stop date: 03/20/18 9:13:00 CDT, 2.19, m2 Tylenol No Notes: Do Memor ia 6-10 not exceed l 23:00: 4 gm/day. [place] 00 (Same as: Tylenol) Roxicodone No Notes: Memor ia 6-10 (Same as: l 23:00: Roxicodone ) Tylenol No Notes: Do Memor ia 6-10 not exceed l 23:00: 4 gm/day. [place] 00 (Same as: Tylenol) Roxicodone No Notes: Memor ia 6-10 (Same as: l 23:00: Roxicodone ) Tylenol No Notes: Do Memor ia 6-10 not exceed l 23:00: 4 gm/day. [place] 00 (Same as: Tylenol) [...] l Oxycodone 22:00: 4gm/day of He rmann Hydrochlor acetaminop de 5 MG hen. Oral Tablet (Same as: [Percocet Percocet-5 5/325] /325) Amlodipine No Notes: Memor ia 6-10 (Same as: l 14:00: Norvasc) [place] Amlodipine No Notes: Memor ia 6-10 (Same as: l 14:00: Norvasc) [place] Amlodipine No Notes: Memor ia 6-10 (Same [...] With food l Tablet 04:20: or milk [place] [Xanax] 00 (Same as: Xanax) Vancomycin No 2000 mg: N[facility] 610 infuse l Dosing + 03:00: over 2.5 [place] nn Sodium 00 hours For Chloride adult 0.9% IV 250 patients mL only: Round to nearest 250 mg per Medical Staff approval MEDICATION WASTE Product Size: 1000 mg Product Wasted: ___ mg Vancomycin No 2000 mg: Nv [facility] 6-10 infuse l Dosing + 03:00: over 2.5 [place] nn Sodium 00 hours For Chloride adult 0.9% IV 250 patients mL only: Round to nearest 250 mg per Medical Staff approval MEDICATION WASTE Product Size: 1000 mg Product Wasted: ___ mg Vancomycin No 2000 mg: N[facility] 6-10 infuse l Dosing + 03:00: over 2.5 [place] nn Sodium 00 hours For Chloride adult 0.9% IV 250 patients mL only: Round to nearest 250 mg per Medical Staff approval MEDICATION WASTE Product Size: 1000 mg Product Wasted: ___ mg tamsulosin No Notes: Memor ia 6-10 (Same As: l 02:00: Flomax) [place] "Do Not Crush" carvedilol No Notes: Memor ia 6-10 Give with l 02:00: food. [place] (Same As: Coreg) tamsulosin No Notes: Memor ia 6-10 (Same As: l 02:00: Flomax) [place] "Do Not Crush" carvedilol No Notes: Memor ia 6-10 Give with l 02:00: food. [place] (Same As: Coreg) tamsulosin No Notes: Memor ia 6-10 (Same As: l 02:00: Flomax) [place] "Do Not Crush" carvedilol No Notes: Memor ia 6-10 Give with l 02:00: food. [place] 00 (Same As: Coreg) Hydralazine No Notes: Kojo lynn Hydrochlori 6-09 (Same as: l de 25 MG 22:00: Apresoline Her meeks Oral Tablet 00 ) May interfere w/enteral feedings Take With Food. Lasix No Notes: Memoria 6-09 (Same as: l 22:00: Lasix) [place] May cause GI upset. Give with food or milk. Hydralazine No Notes: Kojo lynn Hydrochlori 6-09 (Same as: l de 25 MG 22:00: Apresoline Her meeks Oral Tablet 00 ) May interfere w/enteral feedings Take With Food. Lasix No Notes: Memoria 6-09 (Same as: l 22:00: Lasix) [place] 00 May cause GI upset. Give with food or milk. Hydralazine No Notes: Kojo lynn Hydrochlori 6-09 (Same as: l de 25 MG 22:00: Apresoline Her meeks Oral Tablet 00 ) May interfere w/enteral feedings Take With Food. Lasix No Notes: Memoria 6-09 (Same as: l 22:00: Lasix) [place] 00 May cause GI upset. Give with food or milk. Hydralazine No Notes: Kojo lynn 6- (Same as: l 20:10: Apresoline [place] 00 ) Push over 5 minutes Acetaminoph No Notes: Kojo lynn en 325 MG / 03-17 (Same as: l Hydrocodone 20:10: [place] Bitartrate 00 325/5) Do 5 MG Oral not exceed Tablet 4gm/day of [[place] acetaminop 5/325] hen. Hydralazine No Notes: Kojo lynn 6- (Same as: l 20:10: Apresoline [place] 00 ) Push over 5 minutes Acetaminoph No Notes: Kojo lynn en 325 MG / 03-17 (Same as: l Hydrocodone 20:10: [place] nn Bitartrate 00 325/5) Do 5 MG Oral not exceed Tablet 4gm/day of [[place] acetaminop 5/325] hen. Hydralazine No Notes: Kojo lynn 6- (Same as: l 20:10: Apresoline [place] 00 ) Push over 5 minutes Acetaminoph No Notes: Kojo lynn en 325 MG / 03-17 (Same as: l Hydrocodone 20:10: [place] nn Bitartrate 00 325/5) Do 5 MG Oral not exceed Tablet 4gm/day of [[place] acetaminop 5/325] hen. phenol No Notes: Memoria 03-17 Chlorasept l 20:08: ic [place] 00 (Same as: Chlorasept ic, Sore Throat [place]) WASTE: F/P - Black; E - [facility] Trash [facility] phenol No Notes: Memoria 03-17 Chlorasept l 20:08: ic [place] 00 (Same as: Chlorasept ic, Sore Throat [place]) WASTE: F/P - Black; E - [facility] Trash [facility] phenol No Notes: Memoria 03-17 Chlorasept l 20:08: ic [place] 00 (Same as: Chlorasept ic, Sore Throat [place]) WASTE: F/P - Black; E - [facility] Trash [facility] Furosemide Yes 80 mg = 1 Me moria 80 MG Oral 03-17 tab, PO, l Tablet 15:44: BID, 0 [place] [Lasix] 00 Refill(s) amLODIPine 2018-0 Yes 10 mg = 1 Me moria 10 mg oral 03-17 tab, PO, l tablet 15:44: Daily, # [place] 00 30 tab, 0 Refill(s) carvedilol 2018-0 Yes 3.125 mg = M emoria 3.125 mg 03-17 1 tab, PO, l oral tablet 15:44: Q12H, # 60 [place] 00 tab, 0 Refill(s) calcium 2018-0 Yes 2,001 mg = Kojo lynn acetate 667 609 3 cap, PO, l MG Oral 15:44: TID, 0 [place] Capsule 00 Refill(s) Acetaminoph 0 Yes 1 tab, PO, Memoria en 325 MG / 6 BID, 0 l Oxycodone 15:44: Refill(s) Her meeks Hydrochlori 00 de 5 MG Oral Tablet [Percocet 5/325] Hydralazine 0 Yes 25 mg = 1 M emoria Hydrochlori - tab, PO, l de 25 MG 15:44: TID, # 270 Her meeks Oral Tablet 00 tab, 1 Refill(s) tamsulosin 0 Yes 0.4 mg = 1 M emoria 0.4 mg oral 03-17 cap, PO, l capsule 15:44: Bedtime, 0 Herm dionne 00 Refill(s) Furosemide 2018-0 Yes 80 mg = 1 Me moria 80 MG Oral 03-17 tab, PO, l Tablet 15:44: BID, 0 [place] [Lasix] 00 Refill(s) amLODIPine 20180 Yes 10 mg = 1 Me moria 10 mg oral 03-17 tab, PO, l tablet 15:44: Daily, # [place] 00 30 tab, 0 Refill(s) carvedilol 2018-0 Yes 3.125 mg = M emoria 3.125 mg 03-17 1 tab, PO, l oral tablet 15:44: Q12H, # 60 [place] 00 tab, 0 Refill(s) calcium 2018-0 Yes 2,001 mg = Kojo lynn acetate 667 609 3 cap, PO, l MG Oral 15:44: TID, 0 [place] Capsule 00 Refill(s) Acetaminoph 2018-0 Yes 1 tab, PO, Memoria en 325 MG / 6 BID, 0 l Oxycodone 15:44: Refill(s) Her meeks Hydrochlori 00 de 5 MG Oral Tablet [Percocet 5/325] Hydralazine 2017-0 Yes 25 mg = 1 M emoria Hydrochlori 03-17 tab, PO, l de 25 MG 15:44: TID, # 270 Her meeks Oral Tablet 00 tab, 1 Refill(s) tamsulosin Yes 0.4 mg = 1 M emoria 0.4 mg oral 03-17 cap, PO, l capsule 15:44: Bedtime, 0 Herm dionne 00 Refill(s) Furosemide Yes 80 mg = 1 Me moria 80 MG Oral 03-17 tab, PO, l Tablet 15:44: BID, 0 [place] [Lasix] 00 Refill(s) amLODIPine Yes 10 mg = 1 Me moria 10 mg oral 03-17 tab, PO, l tablet 15:44: Daily, # [place] 00 30 tab, 0 Refill(s) carvedilol Yes 3.125 mg = M emoria 3.125 mg 03-17 1 tab, PO, l oral tablet 15:44: Q12H, # 60 [place] 00 tab, 0 Refill(s) calcium Yes 2,001 mg = Kojo lynn acetate 667 03-17 3 cap, PO, l MG Oral 15:44: TID, 0 [place] Capsule 00 Refill(s) Acetaminoph 2018-0 Yes 1 tab, PO, Memoria en 325 MG / 6 BID, 0 l Oxycodone 15:44: Refill(s) Her meeks Hydrochlori 00 de 5 MG Oral Tablet [Percocet 5/325] Hydralazine 2018-0 Yes 25 mg = 1 M emoria Hydrochlori 09 tab, PO, l de 25 MG 15:44: TID, # 270 Her meeks Oral Tablet 00 tab, 1 Refill(s) tamsulosin 0 Yes 0.4 mg = 1 M emoria 0.4 mg oral 03-17 cap, PO, l capsule 15:44: Bedtime, 0 Herm Refill(s) heparin No Notes: Memoria 6-09 porcine l 14:00: heparin heparin No Notes: Memoria 6-09 porcine l 14:00: heparin heparin No Notes: Memoria 6-09 porcine l 14:00: heparin heparin No 10,000 Memoria 6-09 unit, 10 l 13:00: mL, Route: [place] 00 DIALYSIS, Drug form: INJ, ONCALL, Dosing Weight 100.455, kg, Start date: 03/17/18 8:00:00 CDT, Duration: 1 doses or times heparin No 10,000 Memoria 6-09 unit, 10 l 13:00: mL, Route: [place] DIALYSIS, Drug form: INJ, ONCALL, Dosing Weight 100.455, kg, Start date: 03/17/18 8:00:00 CDT, Duration: 1 doses or times heparin No 10,000 Memoria 6-09 unit, 10 l 13:00: mL, Route: [place] DIALYSIS, Drug form: INJ, ONCALL, Dosing Weight 100.455, kg, Start date: 03/17/18 8:00:00 CDT, Duration: 1 doses or times Mannitol Yes Notes: Memoria 03-17 (Same as: l 12:41: Osmitrol) Infuse through 5 micron or smaller filter WASTE: F/P - Sink; E - [facility] Trash [facility] Mannitol Yes Notes: Memoria 03-17 (Same as: l 12:41: Osmitrol) Infuse through 5 micron or smaller filter WASTE: F/P - Sink; E - [facility] Trash [facility] Mannitol Yes Notes: Memoria 03-17 (Same as: l 12:41: Osmitrol) [place] 00 Infuse through 5 micron or smaller filter WASTE: F/P - Sink; E - [facility] Trash [facility] Vancomycin No 2001 mg: Me moria 03-17 infuse l 12:00: over 2.5 [place] 00 hours For adult patients only: Round [...] date: 03/17/18 7:00:00 CDT, PRN Dialysis cefepime 2018-0 No Notes: Memoria 03-17 (Same As: l 12:00: Maxipime) [place] 00 MEDICATION WASTE Product Size: 1000 mg Product Wasted: ___ mg Vancomycin 2018-0 No 2000 mg: Me moria 03-17 infuse l 12:00: over 2.5 [place] 00 hours For adult patients only: Round to nearest 250 mg per Medical Staff approval MEDICATION WASTE Product Size: 1000 mg Product Wasted: ___ mg Sodium 2018-0 No 2,000 mL, Memori a Chloride 03-17 2000 l 0.9% 12:00: ml/hr, [place] (Bolus) IV 00 Infuse Over: 1 hr, Route: IV, 2,000, Drug form: INJ, ONCE, Priority: STAT, Dosing Weight 98.182 kg, Start date: 03/17/18 7:00:00 CDT, PRN Dialysis cefepime 2017-0 No Notes: Memoria 03-17 (Same As: l 12:00: Maxipime) [place] 00 MEDICATION WASTE Product Size: 1000 mg Product Wasted: ___ mg Vancomycin 2018-0 No 2000 mg: Me moria 03-17 infuse l 12:00: over 2.5 [place] 00 hours For adult patients only: Round to nearest 250 mg per Medical Staff approval MEDICATION WASTE Product Size: 1000 mg Product Wasted: ___ mg Sodium 2018-0 No 2,000 mL, Memori a Chloride - 2000 l 0.9% 12:00: ml/hr, [place] (Bolus) IV 00 Infuse Over: 1 hr, Route: IV, 2,000, Drug form: INJ, ONCE, Priority: STAT, Dosing Weight 98.182 kg, Start date: 03/17/18 7:00:00 CDT, PRN Dialysis cefepime 2018-0 No Notes: Memoria 03-17 (Same As: l 12:00: Maxipime) [place] MEDICATION WASTE Product Size: 1000 mg Product Wasted: ___ mg Saline No Notes: Memoria Flush 0.9% 03-17 (Same as: l 11:53: BD [place] 00 Posiflush) Acetaminoph No Notes: Do M emoria en 03-17 not exceed l 11:53: 4 gm/day. [place] 00 (Same as: Tylenol) Saline No Notes: Memoria Flush 0.9% 03-17 (Same as: l 11:53: BD [place] 00 Posiflush) Acetaminoph No Notes: Do M emoria en 03-17 not exceed l 11:53: 4 gm/day. [place] 00 (Same as: Tylenol) Saline No Notes: Memoria Flush 0.9% 03-17 (Same as: l 11:53: BD [place] 00 Posiflush) Acetaminoph No Notes: Do M emoria en 03-17 not exceed l 11:53: 4 gm/day. [place] 00 (Same as: Tylenol) Insulin No Notes: [...] day, Stop date: 04/16/18 6:48:00 CDT Insulin 2018-0 No Notes: Memoria Lispro 03-17 (Same as: l 11:49: Humalog ) [place] 00 Roll in palms of hands gently; Do not shake `vigorousl y. "Single Patient Use Only " WASTE: F/P - Black; E - Municipal Trash Bin Stable for 28 days at room temperatur e. Expires in days from ____Date Glucagon 2017-0 No 1 mg, Memoria 03-17 Route: IM, l 11:49: Drug form: [place] PDR/INJ, PRN, Dosing Weight 98.182, kg, PRN Blood Glucose Results, Start date: 03/17/18 6:49:00 CDT, Duration: 30 day, Stop date: 04/16/18 6:48:00 CDT Dextrose 2018-0 No 25 gm, 50 Kojo lynn 50% Syringe 03-17 mL, Route: l 11:49: IVP, Drug Form: INJ, Dosing Weight 98.182, kg, PRN, PRN Blood Glucose Results, Start date: 03/17/18 6:49:00 CDT, Duration: 30 day, Stop date: 04/16/18 6:48:00 CDT Insulin 2018-0 No Notes: Memoria Lispro 03-17 (Same as: [...] 03-17 Route: IM, l 11:49: Drug form: [place] PDR/INJ, PRN, Dosing Weight 98.182, kg, PRN [...] Memoria 03-17 (Same as: l 10:49: Zosyn) [place] 00 Dosing based on Piperacill in component MEDICATION WASTE Product Size: 4500 mg Product Wasted: ___ mg Vancomycin 2017-0 No 2000 mg: Me moria 03-17 infuse l 10:49: over 2.5 [place] 00 hours For adult patients only: Round to nearest 250 mg per Medical Staff approval MEDICATION WASTE Product Size: 1000 mg Product Wasted: ___ mg Zosyn 2017-0 No Notes: Memoria 03-17 (Same as: l 10:49: Zosyn) [place] 00 Dosing based on Piperacill in component MEDICATION WASTE Product Size: 4500 mg Product Wasted: ___ mg Vancomycin 2017-0 No 2000 mg: Me moria 03-17 infuse l 10:49: over 2.5 [place] 00 hours For adult patients only: Round to nearest 250 mg per Medical Staff approval MEDICATION WASTE Product Size: 1000 mg Product Wasted: ___ mg Zosyn 2017-0 No Notes: Memoria 03-17 (Same as: l 10:49: Zosyn) [place] 00 Dosing based on Piperacill in component MEDICATION WASTE Product Size: 4500 mg Product Wasted: ___ mg Vancomycin 2018-0 No 2000 mg: Me moria 03-17 infuse l 10:49: over 2.5 [place] 00 hours For adult patients only: Round to nearest 250 mg per Medical Staff approval MEDICATION WASTE Product Size: 1000 mg Product Wasted: ___ mg Saline 2017-0 No Notes: Memoria Flush 0.9% 6-09 (Same as: l 07:36: BD [place] 00 Posiflush) Saline No Notes: Memoria Flush 0.9% 6-09 (Same as: l 07:36: BD [place] 00 Posiflush) Saline No Notes: Memoria Flush 0.9% 6-09 (Same as: l 07:36: BD [place] 00 Posiflush) Saline No Notes: Memoria Flush 0.9% 4-17 (Same as: l 00:31: BD [place] 00 Posiflush) Saline No Notes: Memoria Flush 0.9% 4-17 (Same as: l 00:31: BD [place] 00 Posiflush) Saline No Notes: Memoria Flush 0.9% 4-17 (Same as: l 00:31: BD [place] 00 Posiflush) Lasix No Notes: Memoria 3-15 (Same as: l 14:00: Lasix) [place] 00 May cause GI upset. Give with food or milk. Lasix No Notes: Memoria 3-15 (Same as: l 14:00: Lasix) [place] 00 May cause GI upset. Give with food or milk. Lasix No Notes: Memoria 3-15 (Same as: l 14:00: Lasix) [place] 00 May cause GI upset. Give with food or milk. calcitriol No 0.5 Memoria 0.5 mcg 3-14 microgram l oral 14:51: = 1 cap, [place] capsule 00 PO, Daily, # 30 cap, 0 Refill(s), Pharmacy: [facility] calcitriol No 0.5 Memoria 0.5 mcg 3-14 microgram l oral 14:51: = 1 cap, [place] capsule 00 PO, Daily, # 30 cap, 0 Refill(s), Pharmacy: [facility] calcitriol No 0.5 Memoria 0.5 mcg 3-14 microgram l oral 14:51: = 1 cap, [place] capsule 00 PO, Daily, # 30 cap, 0 Refill(s), Pharmacy: [facility] Ergocalcife Yes 50,000 Kojo lynn rol [id number] 3-14 IntlUnit = l UNT Oral 14:47: 1 cap, PO, Her meeks Capsule 00 qWeek, # 5 cap, 0 Refill(s), Pharmacy: [facility] Calcium 0 No 2,000 mg = Kojo lynn Carbonate 3-14 4 tab, PO, l 500 MG 14:47: TID, # 168 [place] nn Chewable 00 tab, 0 Tablet Refill(s), Pharmacy: [facility] sevelamer No 2,400 mg = Me moria carbonate 3-14 3 tab, PO, l 800 mg oral 14:47: TID-Meals, [place] tablet 00 # 270 tab, 0 Refill(s), Pharmacy: [facility] Furosemide 0 No 80 mg, PO, M emoria 80 MG Oral 3-14 Daily, # l Tablet 14:47: 30 ea, 0 [place] [Lasix] 00 Refill(s), Pharmacy: [facility] carvedilol No 3.125 mg = M emoria 3.125 mg 3-14 1 tab, PO, l oral tablet 14:47: Q12H, # 60 [place] 00 tab, 0 Refill(s), Pharmacy: [facility] amLODIPine No 10 mg = 2 Me moria 5 mg oral 3-14 tab, PO, l tablet 14:47: Daily, # [place] 00 60 tab, 0 Refill(s), Pharmacy: [facility] Ergocalcife Yes 50,000 Kojo lynn rol [id number] 3-14 IntlUnit = l UNT Oral 14:47: 1 cap, PO, Her meeks Capsule 00 qWeek, # 5 cap, 0 Refill(s), Pharmacy: [facility] Calcium 0 No 2,000 mg = Kojo lynn Carbonate 3-14 4 tab, PO, l 500 MG 14:47: TID, # 168 [place] nn Chewable 00 tab, 0 Tablet Refill(s), Pharmacy: [facility] sevelamer 0 No 2,400 mg = Me moria carbonate 3-14 3 tab, PO, l 800 mg oral 14:47: TID-Meals, [place] tablet 00 # 270 tab, 0 Refill(s), Pharmacy: [facility] Furosemide No 80 mg, PO, M emoria 80 MG Oral 3-14 Daily, # l Tablet 14:47: 30 ea, 0 [place] [Lasix] 00 Refill(s), Pharmacy: [facility] carvedilol No 3.125 mg = M emoria 3.125 mg 3-14 1 tab, PO, l oral tablet 14:47: Q12H, # 60 [place] 00 tab, 0 Refill(s), Pharmacy: [facility] amLODIPine No 10 mg = 2 Me moria 5 mg oral 3-14 tab, PO, l tablet 14:47: Daily, # [place] 00 60 tab, 0 Refill(s), Pharmacy: [facility] Ergocalcife Yes 50,000 Kojo lynn rol [id number] 3-14 IntlUnit = l UNT Oral 14:47: 1 cap, PO, Her meeks Capsule 00 qWeek, # 5 cap, 0 Refill(s), Pharmacy: [facility] Calcium No 2,000 mg = Kojo lynn Carbonate 3-14 4 tab, PO, l 500 MG 14:47: TID, # 168 [place] nn Chewable 00 tab, 0 Tablet Refill(s), Pharmacy: [facility] sevelamer No 2,400 mg = Me moria carbonate 3-14 3 tab, PO, l 800 mg oral 14:47: TID-Meals, [place] tablet 00 # 270 tab, 0 Refill(s), Pharmacy: [facility] Furosemide No 80 mg, PO, M emoria 80 MG Oral 3-14 Daily, # l Tablet 14:47: 30 ea, 0 [place] [Lasix] 00 Refill(s), Pharmacy: [facility] carvedilol No 3.125 mg = M emoria 3.125 mg 3-14 1 tab, PO, l oral tablet 14:47: Q12H, # 60 [place] 00 tab, 0 Refill(s), Pharmacy: [facility] amLODIPine No 10 mg = 2 Me moria 5 mg oral 3-14 tab, PO, l tablet 14:47: Daily, # [place] 00 60 tab, 0 Refill(s), Pharmacy: [facility] [id number] Calcium No Notes: Memoria Gluconate 3-14 WASTE: F/P l 11:50: - Sink; E [place] 00 - Municipal Trash Bin Calcium No Notes: Memoria Gluconate 3-14 WASTE: F/P l 11:50: - Sink; E [place] - [facility] Trash Bin Calcium No Notes: Memoria Gluconate 3-14 WASTE: F/P l 11:50: - Sink; E [place] 00 - Municipal Trash Bin Coreg No Notes: Memoria 3-14 Give with l 02:00: food. [place] 00 (Same As: Coreg) Coreg No Notes: Memoria 3-14 Give with l 02:00: food. [place] 00 (Same As: Coreg) Coreg No Notes: Memoria 3-14 Give with l 02:00: food. [place] 00 (Same As: Coreg) Lasix No Notes: Memoria 3-13 (Same as: l 14:00: Lasix) [place] 00 MEDICATION WASTE Product Size: 40 mg Product Wasted: ___ mg Vitamin D2 No Notes: Memor ia 3-13 (Same as: l 14:00: Vitamin D) [place] 00 "Do Not Crush" Lasix No Notes: Memoria 3-13 (Same as: l 14:00: Lasix) [place] 00 MEDICATION WASTE Product Size: 40 mg Product Wasted: ___ mg Vitamin D2 No Notes: Memor ia 3-13 (Same as: l 14:00: Vitamin D) [place] 00 "Do Not Crush" Lasix No Notes: Memoria 3-13 (Same as: l 14:00: Lasix) [place] 00 MEDICATION WASTE Product Size: 40 mg Product Wasted: ___ mg Vitamin D2 No Notes: Memor ia 3-13 (Same as: l 14:00: Vitamin D) [place] 00 "Do Not Crush" Calcium No Notes: Memoria Gluconate 3-13 WASTE: F/P l 11:39: - Sink; E [place] 00 - [facility] Trash Bin Calcium No Notes: Memoria Gluconate 3-13 WASTE: F/P l 11:39: - Sink; E [place] 00 - [facility] Trash Bin Calcium No Notes: Memoria Gluconate 3-13 WASTE: F/P l 11:39: - Sink; E [place] 00 - [facility] Trash Bin Calcium No Notes: Memoria Gluconate 3-12 WASTE: F/P l 20:44: - Sink; E [place] - [facility] Trash Bin Calcium No Notes: Memoria Gluconate 3-12 WASTE: F/P l 20:44: - Sink; E [place] - [facility] Trash Bin Calcium No Notes: Memoria Gluconate 3-12 WASTE: F/P l 20:44: - Sink; E [place] 00 - [facility] Trash Bin Calcium No [...] WASTE: F/P l 10:53: - Sink; E [place] - [facility] Trash Bin Calcium No Notes: Memoria Gluconate 3-12 WASTE: F/P l 10:53: - Sink; E [place] - [facility] Trash Bin Calcium No Notes: Memoria Gluconate 3-12 WASTE: F/P l 10:53: - Sink; [place] 00 - Municipal Trash Bin Calcium No Notes: Memoria Gluconate 3-12 WASTE: F/P l 04:35: - Sink; E [place] 00 - [facility] Trash Bin Calcium No Notes: Memoria Gluconate 3-12 WASTE: F/P l 04:35: - Sink; E [place] 00 - [facility] Trash Bin Calcium No Notes: Memoria Gluconate 3-12 WASTE: F/P l 04:35: - Sink; E [place] 00 - Municipal Trash Bin RenaGel No Notes: Memoria 3-11 Same as: l 17:00: Renvela [place] RenaGel No Notes: Memoria 3-11 Same as: l 17:00: Renvela [place] RenaGel No Notes: Memoria 3-11 Same as: l 17:00: Renvela [place] Lasix No Notes: Memoria 3-11 (Same as: [...] Memoria 3-11 (Same as: l 14:00: Lasix) [place] 00 MEDICATION WASTE Product Size: 40 mg Product Wasted: ___ mg Venofer No Notes: Memoria 3-11 Each 5ml l 14:00: contains [place] 00 100mg elemental iron. Mix with NS Non-Formul heydi (Same as:Venofer ) Administer IV only. MEDICATION WASTE Product Size: 100 mg Product Wasted: ___ mg Lasix No Notes: Memoria 3-11 (Same as: l 14:00: Lasix) [place] 00 MEDICATION WASTE Product Size: 40 mg Product Wasted: ___ mg Venofer No Notes: Memoria 3-11 Each 5ml l 14:00: contains [place] 00 100mg elemental iron. Mix with NS Non-Formul heydi (Same as:Arnoldo ) Administer IV only. MEDICATION WASTE Product Size: 100 mg Product Wasted: ___ mg Calcium No Notes: Memoria Gluconate 3-11 WASTE: F/P l 11:35: - Sink; E [place] 00 - Municipal Trash Bin Calcium No Notes: Memoria Gluconate 3-11 WASTE: F/P l 11:35: - Sink; E [place] - Municipal Trash Bin Calcium No Notes: Memoria Gluconate 3-11 WASTE: F/P l 11:35: - Sink; E [place] 00 - Municipal Trash Bin Kayexalate No Notes: Memor ia 3-11 (sodium l 01:11: polystyren [place] 00 e sulfonate 15 gm/60 ml CANDACE) Shake well before use. (Same as: Kayexalate , SPS) sodium No Notes: Memoria bicarbonate 3-11 (sodium l 8.4% 01:11: bicarb [place] 00 8.4% (1 mEq/ml) 50 ml syringe) [...] bicarbonate 3-11 (sodium l 8.4% 01:11: bicarb [place] 00 8.4% (1 mEq/ml) 50 ml syringe) Amlodipine No Notes: Memor ia 3-10 (Same as: l 15:00: Norvasc) [place] Amlodipine No Notes: Memor ia 3-10 (Same as: l 15:00: Norvasc) [place] Amlodipine No Notes: Memor ia 3-10 (Same as: l 15:00: Norvasc) [place] Kayexalate No Notes: Memor ia 3-10 (sodium l 13:38: polystyren [place] 00 e sulfonate 15 gm/60 ml CANDACE) Shake well before use. (Same as: Kayexalate , SPS) Kayexalate No Notes: [facility] ia 3-10 (sodium l 13:38: polystyren [place] 00 e sulfonate 15 gm/60 ml CANDACE) Shake well before use. (Same as: Kayexalate , SPS) Kayexalate No Notes: [facility] ia 3-10 (sodium l 13:38: polystyren [place] 00 e sulfonate 15 gm/60 ml CANDACE) Shake well before use. (Same as: Kayexalate , SPS) Calcium No Notes: [facility] Gluconate 3-09 WASTE: F/P l 23:43: - Sink; E [place] 00 - [facility] Calcium No Notes: [facility] Gluconate 3-09 WASTE: F/P l 23:43: - Sink; E [place] 00 - [facility]ash [facility] Calcium No Notes: [facility] Gluconate 3-09 WASTE: F/P l 23:43: - Sink; E [place] 00 - [facility] Dilaudid No Notes: [facility] 3-09 (Same as: l 21:38: Dilaudid) [place] Dilaudid No Notes: [facility] 3-09 (Same as: l 21:38: Dilaudid) [place] 00 Dilaudid No Notes: [facility] 3-09 (Same as: l 21:38: Dilaudid) [place] Morphine No Notes: [facility] 3-09 (Same l 19:02: as:MORPhin [place] 00 e Sulfate) Morphine No Notes: [facility] 3-09 (Same l 19:02: as:MORPhin [place] 00 e Sulfate) Morphine No Notes: [facility] 3-09 (Same l 19:02: as:MORPhin [place] 00 e [...] tab, PO, l tablet 18:19: Daily, 0 [place] 00 Refill(s) Alprazolam Yes 2 mg = 1 Mem oria 2 MG Oral 3-09 tab, PO, l Tablet 18:19: BID, PRN [place] [Xanax] 00 as needed for anxiety, 0 Refill(s) Alprazolam Yes 2 mg = 1 [...] tab, PO, l tablet 18:19: Daily, 0 [place] 00 Refill(s) Amlodipine No 1 cap, PO, M emoria 10 MG / 3 TID, 0 l Benazepril 18:19: Refill(s) He rmann hydrochlori 00 de 20 MG Oral Capsule [Lotrel 07/28] lisinopril No 20 mg = 1 Me moria 20 mg oral - tab, PO, l tablet 18:19: Daily, 0 [place] 00 Refill(s) Calcium No Notes: [facility] Carbonate 12-15 [...] 12-15 not exceed l 14:31: 4 gm/day. [place] 00 (Same as: Tylenol) Acetaminoph No Notes: Kojo lynn en 325 MG / 12-15 (Same as: l Hydrocodone 14:31: [place] Mercedez nn Bitartrate 00 325/5) Do 5 MG Oral not exceed Tablet 4gm/day of acetaminop hen. Ondansetron No Notes: [place] lynn 3-09 (Same as: l 14:31: Zofran) [place] 00 MEDICATION WASTE Product Size: 4 mg Product Wasted: ___ mg Acetaminoph No Notes: Do M emoria en 12-15 not exceed l 14:31: 4 gm/day. [place] 00 (Same as: Tylenol) Acetaminoph No Notes: Kojo lynn en 325 MG / 309 (Same as: l Hydrocodone 14:31: [place] Merced[place] nn Bitartrate 00 325/5) Do 5 MG Oral not exceed Tablet 4gm/day of acetaminop hen. Ondansetron No Notes: Kojo lynn 3- (Same as: l 14:31: Zofran) [place] 00 MEDICATION WASTE Product Size: 4 mg Product Wasted: ___ mg Acetaminoph No Notes: Do M emoria en - not exceed l 14:31: 4 gm/day. [place] 00 (Same as: Tylenol) Acetaminoph No Notes: Kojo lynn en 325 MG / 3 (Same as: l Hydrocodone 14:31: [place]ced[place] nn Bitartrate 00 325/5) Do 5 MG Oral not exceed Tablet 4gm/day of acetaminop hen. Saline No Notes: [facility] Flush 0.9% 3-09 (Same as: l 12:30: BD [place] 00 Posiflush) Saline No Notes: [facility] Flush 0.9% 3-09 (Same as: l 12:30: BD [place] 00 Posiflush) Saline No Notes: [facility] Flush 0.9% 3-09 (Same as: l 12:30: BD [place] 00 Posiflush) Lasix No Notes: [facility] 3-09 (Same as: l 10:45: Lasix) [place] 00 MEDICATION WASTE Product Size: 40 mg Product Wasted: ___ mg Lasix 2018-0 No Notes: [facility] 12-15 (Same as: l 10:45: Lasix) [place] 00 MEDICATION WASTE Product Size: 40 mg Product Wasted: ___ mg Lasix 2018-0 No Notes: [facility] 12-15 (Same as: l 10:45: Lasix) [place] 00 MEDICATION WASTE Product Size: 40 mg Product Wasted: ___ mg Immunizations Ordered Filled Immunization Date Status Comments [facility] e Immunization Name Name influenza virus 2020-07-15 Completed [facility] [place] vaccine, 19:16:00 inactivated influenza virus 2020-07-15 Completed [facility] [place] vaccine, 19:16:00 inactivated influenza virus 2020-07-15 Completed [facility] [place] vaccine, 19:16:00 inactivated Hep B, Adol or Pedi 2018-08-16 Completed [facility]:00:00 [facility] Hep B, Adol or Pedi 2018-08-16 Completed [facility] Dosage 00:00:00 [facility] Hep B, Adol or Pedi 2018-08-16 Completed [facility] Dosage 00:00:00 [facility] Hep B, Adol or Pedi 2018-08-16 Completed [facility] Dosage 00:00:00 [facility] Hep B, Adol or Pedi 2018-08-16 Completed [facility] Dosage 00:00:00 [facility] Hep B, Adol or Pedi 2018-08-16 Completed [facility] Dosage 00:00:00 [facility] Hep B, Adol or Pedi 2018-08-16 Completed [facility] Dosage 00:00:00 [facility] Hep B, Adol or Pedi 2018-08-16 Completed [facility] Dosage 00:00:00 [facility] Hep B, Adol or Pedi 2018-08-16 Completed [facility] Dosage 00:00:00 [facility] Hep B, Adol or Pedi 2018-08-16 Completed [facility] Dosage 00:00:00 [facility] Hep B, Adol or Pedi 2018-08-16 Completed [facility] Dosage 00:00:00 [facility] Hep B, Adol or Pedi 2018-08-16 Completed [facility] Dosage 00:00:00 [facility] Hep B, Adol or Pedi 2018-08-16 Completed [facility] Dosage 00:00:00 [facility] Hep B, Adol or Pedi 2018-08-16 Completed [facility] Dosage 00:00:00 [facility] Hep B, Adol or Pedi 2018-08-16 Completed [facility] Dosage 00:00:00 [facility] Hep B, Adol or Pedi 2018-08-16 Completed [facility] Dosage 00:00:00 [facility] Hep B, Adol or Pedi 2018-08-16 Completed [facility] Dosage 00:00:00 [facility] Hep B, Adol or Pedi 2018-08-16 Completed [facility] Dosage 00:00:00 [facility] Hep B, Adol or Pedi 2018-08-16 Completed [facility] Dosage 00:00:00 [facility] Hep B, Adol or Pedi 2018-08-16 Completed [facility] Dosage 00:00:00 [facility] Hep B, Adol or Pedi 2018-08-16 Completed [facility] Dosage 00:00:00 [facility] Hep B, Adol or Pedi 2018-08-16 Completed [facility] Dosage 00:00:00 [facility] Hep B, Adol or Pedi 2018-08-16 Completed [facility] Dosage 00:00:00 [facility] Hep B, Adol or Pedi 2018-08-16 Completed [facility] Dosage 00:00:00 [facility] Hep B, Adol or Pedi 2018-08-16 Completed [facility] Dosage 00:00:00 [facility] Hep B, Adol or Pedi 2018-08-16 Completed [facility] Dosage 00:00:00 [facility] Hep B, Adol or Pedi 2018-08-16 Completed [facility] Dosage 00:00:00 [facility] Hep B, Adol or Pedi 2018-08-16 Completed [facility] Dosage 00:00:00 [facility] Hep B, Adol or Pedi 2018-08-16 Completed [facility] Dosage 00:00:00 [facility] Hep B, Adol or Pedi 2018-08-16 Completed [facility] Dosage 00:00:00 [facility] Hep B, Adol or Pedi 2018-08-16 Completed [facility] Dosage 00:00:00 [facility] Hep B, Adol or Pedi 2018-08-16 Completed [facility] Dosage 00:00:00 [facility] Hep B, Adol or Pedi 2018-08-16 Completed [facility] Dosage 00:00:00 [facility] Hep B, Adol or Pedi 2018-08-16 Completed [facility] Dosage 00:00:00 [facility] Hep B, Adol or Pedi 2018-08-16 Completed [facility] Dosage 00:00:00 [facility] Hep B, Adol or Pedi 2018-08-16 Completed [facility] Dosage 00:00:00 [facility] Hep B, Adol or Pedi 2018-08-16 Completed [facility] Dosage 00:00:00 [facility] Hep B, Adol or Pedi 2018-08-16 Completed [facility] Dosage 00:00:00 [facility] Hep B, Adol or Pedi 2018-08-16 Completed [facility] Dosage 00:00:00 [facility] Hep B, Adol or Pedi 2018-08-16 Completed [facility] Dosage 00:00:00 [facility] Hep B, Adol or Pedi 2018-08-16 Completed [facility] Dosage 00:00:00 [facility] Hep B, Adol or Pedi 2018-08-16 Completed [facility] Dosage 00:00:00 [facility] Hep B, Adol or Pedi 2018-08-16 Completed [facility] Dosage 00:00:00 [facility] Hep B, Adol or Pedi 2018-08-16 Completed [facility] Dosage 00:00:00 [facility] Hep B, Adol or Pedi 2018-08-16 Completed [facility] Dosage 00:00:00 [facility] Hep B, Adol or Pedi 2018-08-16 Completed [facility] Dosage 00:00:00 [facility] Hep B, Adol or Pedi 2018-08-16 Completed [facility] Dosage 00:00:00 [facility] Hep B, Adol or Pedi 2018-08-16 Completed [facility] Dosage 00:00:00 [facility] Hep B, Adol or Pedi 2018-08-16 Completed [facility] Dosage 00:00:00 [facility] Hep B, Adol or Pedi 2018-08-16 Completed [facility] Dosage 00:00:00 [facility] Hep B, Adol or Pedi 2018-08-16 Completed [facility] Dosage 00:00:00 [facility] Hep B, Adol or Pedi 2018-08-16 Completed [facility] Dosage 00:00:00 [facility] Hep B, Adol or Pedi 2018-08-16 Completed [facility] Dosage 00:00:00 [facility] Hep B, Adol or Pedi 2018-08-16 Completed [facility] Dosage 00:00:00 [facility] Hep B, Adol or Pedi 2018-08-16 Completed [facility] Dosage 00:00:00 [facility] Hep B, Adol or Pedi 2018-08-16 Completed [facility] Dosage 00:00:00 [facility] Hep B, Adol or Pedi 2018-08-16 Completed [facility] Dosage 00:00:00 [facility] Hep B, Adol or Pedi 2018-08-16 Completed [facility] Dosage 00:00:00 [facility] Hep B, Adol or Pedi 2018-08-16 Completed [facility] Dosage 00:00:00 [facility] Hep B, Adol or Pedi 2018-08-16 Completed [facility] Dosage 00:00:00 [facility] Hep B, Adol or Pedi 2018-08-16 Completed [facility] Dosage 00:00:00 [facility] Hep B, Adol or Pedi 2018-08-16 Completed [facility] Dosage 00:00:00 [facility] Hep B, Adol or Pedi 2018-08-16 Completed [facility] Dosage 00:00:00 [facility] Hep B, Adol or Pedi 2018-08-16 Completed [facility] Dosage 00:00:00 [facility] Hep B, Adol or Pedi 2018-08-16 Completed [facility] Dosage 00:00:00 [facility] Hep B, Adol or Pedi 2018-08-16 Completed [facility] Dosage 00:00:00 [facility] Hep B, Adol or Pedi 2018-08-16 Completed [facility] Dosage 00:00:00 [facility] Hep B, Adol or Pedi 2018-08-16 Completed [facility] Dosage 00:00:00 [facility] Hep B, Adol or Pedi 2018-08-16 Completed [facility] Dosage 00:00:00 [facility] Hep B, Adol or Pedi 2018-08-16 Completed [facility] Dosage 00:00:00 [facility] Hep B, Adol or Pedi 2018-08-16 Completed [facility] Dosage 00:00:00 [facility] Hep B, Adol or Pedi 2018-08-16 Completed [facility] Dosage 00:00:00 [facility] Hep B, Adol or Pedi 2018-08-16 Completed [facility] Dosage 00:00:00 [facility] Hep B, Adol or Pedi 2018-08-16 Completed [facility] Dosage 00:00:00 [facility] Hep B, Adol or Pedi 2018-08-16 Completed [facility] Dosage 00:00:00 [facility] Hep B, Adol or Pedi 2018-08-16 Completed [facility] Dosage 00:00:00 [facility] Hep B, Adol or Pedi 2018-08-16 Completed [facility] Dosage 00:00:00 [facility] Hep B, Adol or Pedi 2018-08-16 Completed [facility] Dosage 00:00:00 [facility] Hep B, Adol or Pedi 2018-08-16 Completed [facility] Dosage 00:00:00 [facility] Hep B, Adol or Pedi 2018-08-16 Completed [facility] Dosage 00:00:00 [facility] Hep B, Adol or Pedi 2018-08-16 Completed [facility] Dosage 00:00:00 [facility] Hep B, Adol or Pedi 2018-08-16 Completed [facility] Dosage 00:00:00 [facility] Hep B, Adol or Pedi 2018-08-16 Completed [facility] Dosage 00:00:00 [facility] Hep B, Adol or Pedi 2018-08-16 Completed [facility] Dosage 00:00:00 [facility] Hep B, Adol or Pedi 2018-08-16 Completed [facility] Dosage 00:00:00 [facility] Hep B, Adol or Pedi 2018-08-16 Completed [facility] Dosage 00:00:00 [facility] Hep B, Adol or Pedi 2018-08-16 Completed [facility] Dosage 00:00:00 [facility] Hep B, Adol or Pedi 2018-08-16 Completed [facility] Dosage 00:00:00 [facility] Influenza Virus 2018-06-28 Completed [facility]ine 00:00:00 [facility] Influenza Virus 2018-06-28 Completed [facility] Vaccine 00:00:00 [facility] Influenza Virus 2018-06-28 Completed [facility] Vaccine 00:00:00 [facility] Influenza Virus 2018-06-28 Completed [facility] Vaccine 00:00:00 [facility] Influenza Virus 2018-06-28 Completed [facility] Vaccine 00:00:00 [facility] Influenza Virus 2018-06-28 Completed [facility] Vaccine 00:00:00 [facility] Influenza Virus 2018-06-28 Completed [facility] Vaccine 00:00:00 [facility] Influenza Virus 2018-06-28 Completed [facility] Vaccine 00:00:00 [facility] Influenza Virus 2018-06-28 Completed [facility] Vaccine 00:00:00 [facility] Influenza Virus 2018-06-28 Completed [facility] Vaccine 00:00:00 [facility] Influenza Virus 2018-06-28 Completed [facility] Vaccine 00:00:00 [facility] Influenza Virus 2018-06-28 Completed [facility] Vaccine 00:00:00 [facility] Influenza Virus 2018-06-28 Completed [facility] Vaccine 00:00:00 [facility] Influenza Virus 2018-06-28 Completed [facility] Vaccine 00:00:00 [facility] Influenza Virus 2018-06-28 Completed [facility] Vaccine 00:00:00 [facility] Influenza Virus 2018-06-28 Completed [facility] Vaccine 00:00:00 [facility] Influenza Virus 2018-06-28 Completed [facility] Vaccine 00:00:00 [facility] Influenza Virus 2018-06-28 Completed [facility] Vaccine 00:00:00 [facility] Influenza Virus 2018-06-28 Completed [facility] Vaccine 00:00:00 [facility] Influenza Virus 2018-06-28 Completed [facility] Vaccine 00:00:00 [facility] Influenza Virus 2018-06-28 Completed [facility] Vaccine 00:00:00 [facility] Influenza Virus 2018-06-28 Completed [facility] Vaccine 00:00:00 [facility] Influenza Virus 2018-06-28 Completed [facility] Vaccine 00:00:00 [facility] Influenza Virus 2018-06-28 Completed [facility] Vaccine 00:00:00 [facility] Influenza Virus 2018-06-28 Completed [facility] Vaccine 00:00:00 [facility] Influenza Virus 2018-06-28 Completed [facility] Vaccine 00:00:00 [facility] Influenza Virus 2018-06-28 Completed [facility] Vaccine 00:00:00 [facility] Influenza Virus 2018-06-28 Completed [facility] Vaccine 00:00:00 [facility] Influenza Virus 2018-06-28 Completed [facility] Vaccine 00:00:00 [facility] Influenza Virus 2018-06-28 Completed [facility] Vaccine 00:00:00 [facility] Influenza Virus 2018-06-28 Completed [facility] Vaccine 00:00:00 [facility] Influenza Virus 2018-06-28 Completed [facility] Vaccine 00:00:00 [facility] Influenza Virus 2018-06-28 Completed [facility] Vaccine 00:00:00 [facility] Influenza Virus 2018-06-28 Completed [facility] Vaccine 00:00:00 [facility] Influenza Virus 2018-06-28 Completed [facility] Vaccine 00:00:00 [facility] Influenza Virus 2018-06-28 Completed [facility] Vaccine 00:00:00 [facility] Influenza Virus 2018-06-28 Completed [facility] Vaccine 00:00:00 [facility] Influenza Virus 2018-06-28 Completed [facility] Vaccine 00:00:00 [facility] Influenza Virus 2018-06-28 Completed [facility] Vaccine 00:00:00 [facility] Influenza Virus 2018-06-28 Completed [facility] Vaccine 00:00:00 [facility] Influenza Virus 2018-06-28 Completed [facility] Vaccine 00:00:00 [facility] Influenza Virus 2018-06-28 Completed [facility] Vaccine 00:00:00 [facility] Influenza Virus 2018-06-28 Completed [facility] Vaccine 00:00:00 [facility] Influenza Virus 2018-06-28 Completed [facility] Vaccine 00:00:00 [facility] Influenza Virus 2018-06-28 Completed [facility] Vaccine 00:00:00 [facility] Influenza Virus 2018-06-28 Completed [facility] Vaccine 00:00:00 [facility] Influenza Virus 2018-06-28 Completed [facility] Vaccine 00:00:00 [facility] Influenza Virus 2018-06-28 Completed [facility] Vaccine 00:00:00 [facility] Influenza Virus 2018-06-28 Completed [facility] Vaccine 00:00:00 [facility] Influenza Virus 2018-06-28 Completed [facility] Vaccine 00:00:00 [facility] Influenza Virus 2018-06-28 Completed [facility] Vaccine 00:00:00 [facility] Influenza Virus 2018-06-28 Completed [facility] Vaccine 00:00:00 [facility] Influenza Virus 2018-06-28 Completed [facility] Vaccine 00:00:00 [facility] Influenza Virus 2018-06-28 Completed [facility] Vaccine 00:00:00 [facility] Influenza Virus 2018-06-28 Completed [facility] Vaccine 00:00:00 [facility] Influenza Virus 2018-06-28 Completed [facility] Vaccine 00:00:00 [facility] Influenza Virus 2018-06-28 Completed [facility] Vaccine 00:00:00 [facility] Influenza Virus 2018-06-28 Completed [facility] Vaccine 00:00:00 [facility] Influenza Virus 2018-06-28 Completed [facility] Vaccine 00:00:00 [facility] Influenza Virus 2018-06-28 Completed [facility] Vaccine 00:00:00 [facility] Influenza Virus 2018-06-28 Completed [facility] Vaccine 00:00:00 [facility] Influenza Virus 2018-06-28 Completed [facility] Vaccine 00:00:00 [facility] Influenza Virus 2018-06-28 Completed [facility] Vaccine 00:00:00 [facility] Influenza Virus 2018-06-28 Completed [facility] Vaccine 00:00:00 [facility] Influenza Virus 2018-06-28 Completed [facility] Vaccine 00:00:00 [facility] Influenza Virus 2018-06-28 Completed [facility] Vaccine 00:00:00 [facility] Influenza Virus 2018-06-28 Completed [facility] Vaccine 00:00:00 [facility] Influenza Virus 2018-06-28 Completed [facility] Vaccine 00:00:00 [facility] Influenza Virus 2018-06-28 Completed [facility] Vaccine 00:00:00 [facility] Influenza Virus 2018-06-28 Completed [facility] Vaccine 00:00:00 [facility] Influenza Virus 2018-06-28 Completed [facility] Vaccine 00:00:00 [facility] Influenza Virus 2018-06-28 Completed [facility] Vaccine 00:00:00 [facility] Influenza Virus 2018-06-28 Completed [facility] Vaccine 00:00:00 [facility] Influenza Virus 2018-06-28 Completed [facility] Vaccine 00:00:00 [facility] Influenza Virus 2018-06-28 Completed [facility] Vaccine 00:00:00 [facility] Influenza Virus 2018-06-28 Completed [facility] Vaccine 00:00:00 [facility] Influenza Virus 2018-06-28 Completed [facility] Vaccine 00:00:00 [facility] Influenza Virus 2018-06-28 Completed [facility] Vaccine 00:00:00 [facility] Influenza Virus 2018-06-28 Completed [facility] Vaccine 00:00:00 [facility] Influenza Virus 2018-06-28 Completed [facility] Vaccine 00:00:00 [facility] Influenza Virus 2018-06-28 Completed [facility] Vaccine 00:00:00 [facility] Influenza Virus 2018-06-28 Completed [facility] Vaccine 00:00:00 [facility] Influenza Virus 2018-06-28 Completed [facility] Vaccine 00:00:00 [facility] Influenza Virus 2018-06-28 Completed [facility] Vaccine 00:00:00 [facility] Influenza Virus 2018-06-28 Completed [facility] Vaccine 00:00:00 [facility] Influenza Virus 2018-06-28 Completed [facility] Vaccine 00:00:00 [facility] Influenza Virus 2018-06-28 Completed [facility] Vaccine 00:00:00 [facility] Influenza Virus 2018-06-28 Completed [facility] Vaccine 00:00:00 [facility] Hep B, Adol or Pedi 2018-05-08 Completed [facility] Dos[facility] 00:00:00 [facility] Hep B, Adol or Pedi 2018-05-08 Completed [facility] Dosage 00:00:00 [facility] Hep B, Adol or Pedi 2018-05-08 Completed [facility] Dosage 00:00:00 [facility] Hep B, Adol or Pedi 2018-05-08 Completed [facility] Dosage 00:00:00 [facility] Hep B, Adol or Pedi 2018-05-08 Completed [facility] Dosage 00:00:00 [facility] Hep B, Adol or Pedi 2018-05-08 Completed [facility] Dosage 00:00:00 [facility] Hep B, Adol or Pedi 2018-05-08 Completed [facility] Dosage 00:00:00 [facility] Hep B, Adol or Pedi 2018-05-08 Completed [facility] Dosage 00:00:00 [facility] Hep B, Adol or Pedi 2018-05-08 Completed [facility] Dosage 00:00:00 [facility] Hep B, Adol or Pedi 2018-05-08 Completed [facility] Dosage 00:00:00 [facility] Hep B, Adol or Pedi 2018-05-08 Completed [facility] Dosage 00:00:00 [facility] Hep B, Adol or Pedi 2018-05-08 Completed [facility] Dosage 00:00:00 [facility] Hep B, Adol or Pedi 2018-05-08 Completed [facility] Dosage 00:00:00 [facility] Hep B, Adol or Pedi 2018-05-08 Completed [facility] Dosage 00:00:00 [facility] Hep B, Adol or Pedi 2018-05-08 Completed [facility] Dosage 00:00:00 [facility] Hep B, Adol or Pedi 2018-05-08 Completed [facility] Dosage 00:00:00 [facility] Hep B, Adol or Pedi 2018-05-08 Completed [facility] Dosage 00:00:00 [facility] Hep B, Adol or Pedi 2018-05-08 Completed [facility] Dosage 00:00:00 [facility] Hep B, Adol or Pedi 2018-05-08 Completed [facility] Dosage 00:00:00 [facility] Hep B, Adol or Pedi 2018-05-08 Completed [facility] Dosage 00:00:00 [facility] Hep B, Adol or Pedi 2018-05-08 Completed [facility] Dosage 00:00:00 [facility] Hep B, Adol or Pedi 2018-05-08 Completed [facility] Dosage 00:00:00 [facility] Hep B, Adol or Pedi 2018-05-08 Completed [facility] Dosage 00:00:00 [facility] Hep B, Adol or Pedi 2018-05-08 Completed [facility] Dosage 00:00:00 [facility] Hep B, Adol or Pedi 2018-05-08 Completed [facility] Dosage 00:00:00 [facility] Hep B, Adol or Pedi 2018-05-08 Completed [facility] Dosage 00:00:00 [facility] Hep B, Adol or Pedi 2018-05-08 Completed [facility] Dosage 00:00:00 [facility] Hep B, Adol or Pedi 2018-05-08 Completed [facility] Dosage 00:00:00 [facility] Hep B, Adol or Pedi 2018-05-08 Completed [facility] Dosage 00:00:00 [facility] Hep B, Adol or Pedi 2018-05-08 Completed [facility] Dosage 00:00:00 [facility] Hep B, Adol or Pedi 2018-05-08 Completed [facility] Dosage 00:00:00 [facility] Hep B, Adol or Pedi 2018-05-08 Completed [facility] Dosage 00:00:00 [facility] Hep B, Adol or Pedi 2018-05-08 Completed [facility] Dosage 00:00:00 [facility] Hep B, Adol or Pedi 2018-05-08 Completed [facility] Dosage 00:00:00 [facility] Hep B, Adol or Pedi 2018-05-08 Completed [facility] Dosage 00:00:00 [facility] Hep B, Adol or Pedi 2018-05-08 Completed [facility] Dosage 00:00:00 [facility] Hep B, Adol or Pedi 2018-05-08 Completed [facility] Dosage 00:00:00 [facility] Hep B, Adol or Pedi 2018-05-08 Completed [facility] Dosage 00:00:00 [facility] Hep B, Adol or Pedi 2018-05-08 Completed [facility] Dosage 00:00:00 [facility] Hep B, Adol or Pedi 2018-05-08 Completed [facility] Dosage 00:00:00 [facility] Hep B, Adol or Pedi 2018-05-08 Completed [facility] Dosage 00:00:00 [facility] Hep B, Adol or Pedi 2018-05-08 Completed [facility] Dosage 00:00:00 [facility] Hep B, Adol or Pedi 2018-05-08 Completed [facility] Dosage 00:00:00 [facility] Hep B, Adol or Pedi 2018-05-08 Completed [facility] Dosage 00:00:00 [facility] Hep B, Adol or Pedi 2018-05-08 Completed [facility] Dosage 00:00:00 [facility] Hep B, Adol or Pedi 2018-05-08 Completed [facility] Dosage 00:00:00 [facility] Hep B, Adol or Pedi 2018-05-08 Completed [facility] Dosage 00:00:00 [facility] Hep B, Adol or Pedi 2018-05-08 Completed [facility] Dosage 00:00:00 [facility] Hep B, Adol or Pedi 2018-05-08 Completed [facility] Dosage 00:00:00 [facility] Hep B, Adol or Pedi 2018-05-08 Completed [facility] Dosage 00:00:00 [facility] Hep B, Adol or Pedi 2018-05-08 Completed [facility] Dosage 00:00:00 [facility] Hep B, Adol or Pedi 2018-05-08 Completed [facility] Dosage 00:00:00 [facility] Hep B, Adol or Pedi 2018-05-08 Completed [facility] Dosage 00:00:00 [facility] Hep B, Adol or Pedi 2018-05-08 Completed [facility] Dosage 00:00:00 [facility] Hep B, Adol or Pedi 2018-05-08 Completed [facility] Dosage 00:00:00 [facility] Hep B, Adol or Pedi 2018-05-08 Completed [facility] Dosage 00:00:00 [facility] Hep B, Adol or Pedi 2018-05-08 Completed [facility] Dosage 00:00:00 [facility] Hep B, Adol or Pedi 2018-05-08 Completed [facility] Dosage 00:00:00 [facility] Hep B, Adol or Pedi 2018-05-08 Completed [facility] Dosage 00:00:00 [facility] Hep B, Adol or Pedi 2018-05-08 Completed [facility]:00 [facility] Hep B, Adol or Pedi 2018-05-08 Completed [facility] 00:00:00 [facility] Hep B, Adol or Pedi 2018-05-08 Completed [facility] 00:00:00 [facility] Hep B, Adol or Pedi 2018-05-08 Completed [facility] 00:00:00 [facility] Hep B, Adol or Pedi 2018-05-08 Completed [facility] 00:00:00 [facility] Hep B, Adol or Pedi 2018-05-08 Completed [facility] 00:00:00 [facility] Hep B, Adol or Pedi 2018-05-08 Completed [facility] 00:00:00 [facility] Hep B, Adol or Pedi 2018-05-08 Completed [facility] 00:00:00 [facility] Hep B, Adol or Pedi 2018-05-08 Completed [facility] 00:00:00 [facility] Hep B, Adol or Pedi 2018-05-08 Completed [facility] 00:00:00 [facility] Hep B, Adol or Pedi 2018-05-08 Completed [facility] 00:00:00 [facility] Hep B, Adol or Pedi 2018-05-08 Completed [facility] 00:00:00 [facility] Hep B, Adol or Pedi 2018-05-08 Completed [facility] 00:00:00 [facility] Hep B, Adol or Pedi 2018-05-08 Completed [facility] 00:00:00 [facility] Hep B, Adol or Pedi 2018-05-08 Completed [facility] 00:00:00 [facility] Hep B, Adol or Pedi 2018-05-08 Completed [facility] 00:00:00 [facility] Hep B, Adol or Pedi 2018-05-08 Completed [facility] 00:00:00 [facility] Hep B, Adol or Pedi 2018-05-08 Completed [facility] 00:00:00 [facility] Hep B, Adol or Pedi 2018-05-08 Completed [facility] 00:00:00 [facility] Hep B, Adol or Pedi 2018-05-08 Completed [facility] 00:00:00 [facility] Hep B, Adol or Pedi 2018-05-08 Completed [facility] 00:00:00 [facility] Hep B, Adol or Pedi 2018-05-08 Completed [facility] 00:00:00 [facility] Hep B, Adol or Pedi 2018-05-08 Completed [facility] 00:00:00 [facility] Hep B, Adol or Pedi 2018-05-08 Completed [facility] 00:00:00 [facility] Hep B, Adol or Pedi 2018-05-08 Completed [facility] 00:00:00 [facility] Hep B, Adol or Pedi 2018-05-08 Completed [facility] 00:00:00 [facility] Hep B, Adol or Pedi 2018-05-08 Completed [facility] 00:00:00 [facility] Hep B, Adol or Pedi 2018-05-08 Completed [facility] 00:00:00 [facility] Hep B, Adol or Pedi 2018-05-08 Completed [facility] 00:00:00 [facility] Hep B, Adol or Pedi 2018-04-05 Completed [facility] 00:00:00 [facility] Hep B, Adol or Pedi 2018-04-05 Completed [facility] 00:00:00 [facility] Hep B, Adol or Pedi 2018-04-05 Completed [facility] 00:00:00 [facility] Hep B, Adol or Pedi 2018-04-05 Completed [facility] 00:00:00 [facility] Hep B, Adol or Pedi 2018-04-05 Completed [facility] 00:00:00 [facility] Hep B, Adol or Pedi 2018-04-05 Completed [facility] 00:00:00 [facility] Hep B, Adol or Pedi 2018-04-05 Completed [facility] 00:00:00 [facility] Hep B, Adol or Pedi 2018-04-05 Completed [facility] 00:00:00 [facility] Hep B, Adol or Pedi 2018-04-05 Completed [facility] 00:00:00 [facility] Hep B, Adol or Pedi 2018-04-05 Completed [facility] 00:00:00 [facility] Hep B, Adol or Pedi 2018-04-05 Completed [facility] 00:00:00 [facility] Hep B, Adol or Pedi 2018-04-05 Completed [facility] 00:00:00 [facility] Hep B, Adol or Pedi 2018-04-05 Completed [facility] 00:00:00 [facility] Hep B, Adol or Pedi 2018-04-05 Completed [facility] 00:00:00 [facility] Hep B, Adol or Pedi 2018-04-05 Completed [facility] 00:00:00 [facility] Hep B, Adol or Pedi 2018-04-05 Completed [facility] 00:00:00 [facility] Hep B, Adol or Pedi 2018-04-05 Completed [facility] 00:00:00 [facility] Hep B, Adol or Pedi 2018-04-05 Completed [facility] 00:00:00 [facility] Hep B, Adol or Pedi 2018-04-05 Completed [facility] 00:00:00 [facility] Hep B, Adol or Pedi 2018-04-05 Completed [facility] 00:00:00 [facility] Hep B, Adol or Pedi 2018-04-05 Completed [facility] 00:00:00 [facility] Hep B, Adol or Pedi 2018-04-05 Completed [facility] 00:00:00 [facility] Hep B, Adol or Pedi 2018-04-05 Completed [facility] 00:00:00 [facility] Hep B, Adol or Pedi 2018-04-05 Completed [facility] 00:00:00 [facility] Hep B, Adol or Pedi 2018-04-05 Completed [facility] 00:00:00 [facility] Hep B, Adol or Pedi 2018-04-05 Completed [facility] 00:00:00 [facility] Hep B, Adol or Pedi 2018-04-05 Completed [facility] 00:00:00 [facility] Hep B, Adol or Pedi 2018-04-05 Completed [facility]os[facility] 00:00:00 [facility] Hep B, Adol or Pedi 2018-04-05 Completed [facility] 00:00:00 [facility] Hep B, Adol or Pedi 2018-04-05 Completed [facility] 00:00:00 [facility] Hep B, Adol or Pedi 2018-04-05 Completed [facility] 00:00:00 [facility] Hep B, Adol or Pedi 2018-04-05 Completed [facility] 00:00:00 [facility] Hep B, Adol or Pedi 2018-04-05 Completed [facility] 00:00:00 [facility] Hep B, Adol or Pedi 2018-04-05 Completed [facility] 00:00:00 [facility] Hep B, Adol or Pedi 2018-04-05 Completed [facility] 00:00:00 [facility] Hep B, Adol or Pedi 2018-04-05 Completed [facility] 00:00:00 [facility] Hep B, Adol or Pedi 2018-04-05 Completed [facility] 00:00:00 [facility] Hep B, Adol or Pedi 2018-04-05 Completed [facility] 00:00:00 [facility] Hep B, Adol or Pedi 2018-04-05 Completed [facility] 00:00:00 [facility] Hep B, Adol or Pedi 2018-04-05 Completed [facility] 00:00:00 [facility] Hep B, Adol or Pedi 2018-04-05 Completed [facility] 00:00:00 [facility] Hep B, Adol or Pedi 2018-04-05 Completed [facility] 00:00:00 [facility] Hep B, Adol or Pedi 2018-04-05 Completed [facility] 00:00:00 [facility] Hep B, Adol or Pedi 2018-04-05 Completed [facility] 00:00:00 [facility] Hep B, Adol or Pedi 2018-04-05 Completed [facility] 00:00:00 [facility] Hep B, Adol or Pedi 2018-04-05 Completed [facility] 00:00:00 [facility] Hep B, Adol or Pedi 2018-04-05 Completed [facility] 00:00:00 [facility] Hep B, Adol or Pedi 2018-04-05 Completed [facility] 00:00:00 [facility] Hep B, Adol or Pedi 2018-04-05 Completed [facility] 00:00:00 [facility] Hep B, Adol or Pedi 2018-04-05 Completed [facility] 00:00:00 [facility] Hep B, Adol or Pedi 2018-04-05 Completed [facility] 00:00:00 [facility] Hep B, Adol or Pedi 2018-04-05 Completed [facility] 00:00:00 [facility] Hep B, Adol or Pedi 2018-04-05 Completed [facility] 00:00:00 [facility] Hep B, Adol or Pedi 2018-04-05 Completed [facility] 00:00:00 [facility] Hep B, Adol or Pedi 2018-04-05 Completed [facility] 00:00:00 [facility] Hep B, Adol or Pedi 2018-04-05 Completed [facility] 00:00:00 [facility] Hep B, Adol or Pedi 2018-04-05 Completed [facility] 00:00:00 [facility] Hep B, Adol or Pedi 2018-04-05 Completed [facility] 00:00:00 [facility] Hep B, Adol or Pedi 2018-04-05 Completed [facility] 00:00:00 [facility] Hep B, Adol or Pedi 2018-04-05 Completed [facility] 00:00:00 [facility] Hep B, Adol or Pedi 2018-04-05 Completed [facility] 00:00:00 [facility] Hep B, Adol or Pedi 2018-04-05 Completed [facility] 00:00:00 [facility] Hep B, Adol or Pedi 2018-04-05 Completed [facility] 00:00:00 [facility] Hep B, Adol or Pedi 2018-04-05 Completed [facility] 00:00:00 [facility] Hep B, Adol or Pedi 2018-04-05 Completed [facility] 00:00:00 [facility] Hep B, Adol or Pedi 2018-04-05 Completed [facility] 00:00:00 [facility] Hep B, Adol or Pedi 2018-04-05 Completed [facility] 00:00:00 [facility] Hep B, Adol or Pedi 2018-04-05 Completed [facility] 00:00:00 [facility] Hep B, Adol or Pedi 2018-04-05 Completed [facility] 00:00:00 [facility] Hep B, Adol or Pedi 2018-04-05 Completed [facility] 00:00:00 [facility] Hep B, Adol or Pedi 2018-04-05 Completed [facility] 00:00:00 [facility] Hep B, Adol or Pedi 2018-04-05 Completed [facility] 00:00:00 [facility] Hep B, Adol or Pedi 2018-04-05 Completed [facility] 00:00:00 [facility] Hep B, Adol or Pedi 2018-04-05 Completed [facility] 00:00:00 [facility] Hep B, Adol or Pedi 2018-04-05 Completed [facility] D[facility] 00:00:00 [facility] Hep B, Adol or Pedi 2018-04-05 Completed [facility] D[facility] 00:00:00 [facility] Hep B, Adol or Pedi 2018-04-05 Completed [facility] Dos[facility] 00:00:00 [facility] Hep B, Adol or Pedi 2018-04-05 Completed [facility] Dos[facility] 00:00:00 [facility] Hep B, Adol or Pedi 2018-04-05 Completed [facility] D[facility] 00:00:00 [facility] Hep B, Adol or Pedi 2018-04-05 Completed [facility] Dos[facility] 00:00:00 [facility] Hep B, Adol or Pedi 2018-04-05 Completed [facility] 00:00:00 [facility] Hep B, Adol or Pedi 2018-04-05 Completed [facility] 00:00:00 [facility] Hep B, Adol or Pedi 2018-04-05 Completed [facility] D[facility] 00:00:00 [facility] Hep B, Adol or Pedi 2018-04-05 Completed [facility] Dos[facility] 00:00:00 [facility] Hep B, Adol or Pedi 2018-04-05 Completed [facility] Dos[facility] 00:00:00 [facility] Hep B, Adol or Pedi 2018-04-05 Completed [facility] 00:00:00 [facility] Hep B, Adol or Pedi 2018-04-05 Completed [facility] 00:00:00 [facility] Hep B, Adol or Pedi 2018-04-05 Completed [facility] 00:00:00 [facility] pneumococcal 2018-03-20 [facility]-val[facility] 21:53:00 pneumococcal 2018-03-20 Completed [facility]-val[facility] 21:53:00 pneumococcal 2018-03-20 Completed [facility]-valent [facility] 21:53:00 Hep B, Adol or Pedi 2018-03-03 Completed [facility] 00:00:00 [facility] Hep B, Adol or Pedi 2018-03-03 Completed [facility] 00:00:00 [facility] Hep B, Adol or Pedi 2018-03-03 Completed [facility] 00:00:00 [facility] Hep B, Adol or Pedi 2018-03-03 Completed [facility] 00:00:00 [facility] Hep B, Adol or Pedi 2018-03-03 Completed [facility] 00:00:00 [facility] Hep B, Adol or Pedi 2018-03-03 Completed [facility]os[facility] 00:00:00 [facility] Hep B, Adol or Pedi 2018-03-03 Completed [facility] 00:00:00 [facility] Hep B, Adol or Pedi 2018-03-03 Completed [facility] 00:00:00 [facility] Hep B, Adol or Pedi 2018-03-03 Completed [facility] 00:00:00 [facility] Hep B, Adol or Pedi 2018-03-03 Completed [facility] 00:00:00 [facility] Hep B, Adol or Pedi 2018-03-03 Completed [facility]os[facility] 00:00:00 [facility] Hep B, Adol or Pedi 2018-03-03 Completed [facility]os[facility] 00:00:00 [facility] Hep B, Adol or Pedi 2018-03-03 Completed [facility] 00:00:00 [facility] Hep B, Adol or Pedi 2018-03-03 Completed [facility] 00:00:00 [facility] Hep B, Adol or Pedi 2018-03-03 Completed [facility] 00:00:00 [facility] Hep B, Adol or Pedi 2018-03-03 Completed [facility] 00:00:00 [facility] Hep B, Adol or Pedi 2018-03-03 Completed [facility] 00:00:00 [facility] Hep B, Adol or Pedi 2018-03-03 Completed [facility]os[facility] 00:00:00 [facility] Hep B, Adol or Pedi 2018-03-03 Completed [facility]os[facility] 00:00:00 [facility] Hep B, Adol or Pedi 2018-03-03 Completed [facility] 00:00:00 [facility] Hep B, Adol or Pedi 2018-03-03 Completed [facility] Dos[facility] 00:00:00 [facility] Hep B, Adol or Pedi 2018-03-03 Completed [facility] 00:00:00 [facility] Hep B, Adol or Pedi 2018-03-03 Completed [facility]os[facility] 00:00:00 [facility] Hep B, Adol or Pedi 2018-03-03 Completed [facility] 00:00:00 [facility] Hep B, Adol or Pedi 2018-03-03 Completed [facility] 00:00:00 [facility] Hep B, Adol or Pedi 2018-03-03 Completed [facility] Dos[facility] 00:00:00 [facility] Hep B, Adol or Pedi 2018-03-03 Completed [facility] 00:00:00 [facility] Hep B, Adol or Pedi 2018-03-03 Completed [facility]os[facility] 00:00:00 [facility] Hep B, Adol or Pedi 2018-03-03 Completed [facility] Dos[facility] 00:00:00 [facility] Hep B, Adol or Pedi 2018-03-03 Completed [facility]os[facility] 00:00:00 [facility] Hep B, Adol or Pedi 2018-03-03 Completed [facility]os[facility] 00:00:00 [facility] Hep B, Adol or Pedi 2018-03-03 Completed [facility] 00:00:00 [facility] Hep B, Adol or Pedi 2018-03-03 Completed [facility] 00:00:00 [facility] Hep B, Adol or Pedi 2018-03-03 Completed [facility] Dos[facility] 00:00:00 [facility] Hep B, Adol or Pedi 2018-03-03 Completed [facility] 00:00:00 [facility] Hep B, Adol or Pedi 2018-03-03 Completed [facility] 00:00:00 [facility] Hep B, Adol or Pedi 2018-03-03 Completed [facility] 00:00:00 [facility] Hep B, Adol or Pedi 2018-03-03 Completed [facility] 00:00:00 [facility] Hep B, Adol or Pedi 2018-03-03 Completed [facility] 00:00:00 [facility] Hep B, Adol or Pedi 2018-03-03 Completed [facility] 00:00:00 [facility] Hep B, Adol or Pedi 2018-03-03 Completed [facility] 00:00:00 [facility] Hep B, Adol or Pedi 2018-03-03 Completed [facility] 00:00:00 [facility] Hep B, Adol or Pedi 2018-03-03 Completed [facility] 00:00:00 [facility] Hep B, Adol or Pedi 2018-03-03 Completed [facility] 00:00:00 [facility] Hep B, Adol or Pedi 2018-03-03 Completed [facility] 00:00:00 [facility] Hep B, Adol or Pedi 2018-03-03 Completed [facility] 00:00:00 [facility] Hep B, Adol or Pedi 2018-03-03 Completed [facility] Dos[facility] 00:00:00 [facility] Hep B, Adol or Pedi 2018-03-03 Completed [facility] Dos[facility] 00:00:00 [facility] Hep B, Adol or Pedi 2018-03-03 Completed [facility]os[facility] 00:00:00 [facility] Hep B, Adol or Pedi 2018-03-03 Completed [facility] 00:00:00 [facility] Hep B, Adol or Pedi 2018-03-03 Completed [facility] 00:00:00 [facility] Hep B, Adol or Pedi 2018-03-03 Completed [facility] 00:00:00 [facility] Hep B, Adol or Pedi 2018-03-03 Completed [facility] 00:00:00 [facility] Hep B, Adol or Pedi 2018-03-03 Completed [facility] 00:00:00 [facility] Hep B, Adol or Pedi 2018-03-03 Completed [facility] 00:00:00 [facility] Hep B, Adol or Pedi 2018-03-03 Completed [facility] 00:00:00 [facility] Hep B, Adol or Pedi 2018-03-03 Completed [facility]os[facility] 00:00:00 [facility] Hep B, Adol or Pedi 2018-03-03 Completed [facility] 00:00:00 [facility] Hep B, Adol or Pedi 2018-03-03 Completed [facility] 00:00:00 [facility] Hep B, Adol or Pedi 2018-03-03 Completed [facility] 00:00:00 [facility] Hep B, Adol or Pedi 2018-03-03 Completed [facility] 00:00:00 [facility] Hep B, Adol or Pedi 2018-03-03 Completed [facility] 00:00:00 [facility] Hep B, Adol or Pedi 2018-03-03 Completed [facility] 00:00:00 [facility] Hep B, Adol or Pedi 2018-03-03 Completed [facility]os[facility] 00:00:00 [facility] Hep B, Adol or Pedi 2018-03-03 Completed [facility] Dos[facility] 00:00:00 [facility] Hep B, Adol or Pedi 2018-03-03 Completed [facility] 00:00:00 [facility] Hep B, Adol or Pedi 2018-03-03 Completed [facility] 00:00:00 [facility] Hep B, Adol or Pedi 2018-03-03 Completed [facility] 00:00:00 [facility] Hep B, Adol or Pedi 2018-03-03 Completed [facility] 00:00:00 [facility] Hep B, Adol or Pedi 2018-03-03 Completed [facility]os[facility] 00:00:00 [facility] Hep B, Adol or Pedi 2018-03-03 Completed [facility] Dos[facility] 00:00:00 [facility] Hep B, Adol or Pedi 2018-03-03 Completed [facility] 00:00:00 [facility] Hep B, Adol or Pedi 2018-03-03 Completed [facility] Dos[facility] 00:00:00 [facility] Hep B, Adol or Pedi 2018-03-03 Completed [facility] 00:00:00 [facility] Hep B, Adol or Pedi 2018-03-03 Completed [facility] 00:00:00 [facility] Hep B, Adol or Pedi 2018-03-03 Completed [facility] Dos[facility] 00:00:00 [facility] Hep B, Adol or Pedi 2018-03-03 Completed [facility] Dos[facility] 00:00:00 [facility] Hep B, Adol or Pedi 2018-03-03 Completed [facility] Dos[facility] 00:00:00 [facility] Hep B, Adol or Pedi 2018-03-03 Completed [facility] Dos[facility] 00:00:00 [facility] Hep B, Adol or Pedi 2018-03-03 Completed [facility] D[facility] 00:00:00 [facility] Hep B, Adol or Pedi 2018-03-03 Completed [facility] Dos[facility] 00:00:00 [facility] Hep B, Adol or Pedi 2018-03-03 Completed [facility] Dos[facility] 00:00:00 [facility] Hep B, Adol or Pedi 2018-03-03 Completed [facility] Dos[facility] 00:00:00 [facility] Hep B, Adol or Pedi 2018-03-03 Completed [facility] Dos[facility] 00:00:00 [facility] Hep B, Adol or Pedi 2018-03-03 Completed [facility] Dos[facility] 00:00:00 [facility] Hep B, Adol or Pedi 2018-03-03 Completed [facility] Dos[facility] 00:00:00 [facility] Hep B, Adol or Pedi 2018-03-03 Completed [facility] Dos[facility] 00:00:00 [facility] Hep B, Adol or Pedi 2018-03-03 Completed [facility] 00:00:00 [facility] Pneumococcal 2018-03-01 Completed [facility] Pol[facility], 00:00:00 [facility] PPSV23 (PNEUMOVAX) [facility] Pneumococcal 2018-03-01 Completed [facility] Pol[facility], 00:00:00 [facility] PPSV23 (PNEUMOVAX) [facility] Pneumococcal 2018-03-01 Completed [facility] Polysaccharide, 00:00:00 [facility] PPSV23 (PNEUMOVAX) [facility] Pneumococcal 2018-03-01 Completed [facility] Polysaccharide, 00:00:00 [facility] PPSV23 (PNEUMOVAX) [facility] Pneumococcal 2018-03-01 Completed [facility] Polysaccharide, 00:00:00 [facility] PPSV23 (PNEUMOVAX) [facility] Pneumococcal 2018-03-01 Completed [facility] Polysaccharide, 00:00:00 [facility] PPSV23 (PNEUMOVAX) [facility] Pneumococcal 2018-03-01 Completed [facility] Polysaccharide, 00:00:00 [facility] PPSV23 (PNEUMOVAX) [facility] Pneumococcal 2018-03-01 Completed [facility] Polysaccharide, 00:00:00 [facility] PPSV23 (PNEUMOVAX) [facility] Pneumococcal 2018-03-01 Completed [facility] Polysaccharide, 00:00:00 [facility] PPSV23 (PNEUMOVAX) [facility] Pneumococcal 2018-03-01 Completed [facility] Polysaccharide, 00:00:00 [facility] PPSV23 (PNEUMOVAX) [facility] Pneumococcal 2018-03-01 Completed [facility] Polysaccharide, 00:00:00 [facility] PPSV23 (PNEUMOVAX) [facility] Pneumococcal 2018-03-01 Completed [facility] Polysaccharide, 00:00:00 [facility] PPSV23 (PNEUMOVAX) [facility] Pneumococcal 2018-03-01 Completed [facility] Polysaccharide, 00:00:00 [facility] PPSV23 (PNEUMOVAX) [facility] Pneumococcal 2018-03-01 Completed [facility] Polysaccharide, 00:00:00 [facility] PPSV23 (PNEUMOVAX) [facility] Pneumococcal 2018-03-01 Completed [facility] Polysaccharide, 00:00:00 [facility] PPSV23 (PNEUMOVAX) [facility] Pneumococcal 2018-03-01 Completed [facility] Polysaccharide, 00:00:00 [facility] PPSV23 (PNEUMOVAX) [facility] Pneumococcal 2018-03-01 Completed [facility] Polysaccharide, 00:00:00 [facility] PPSV23 (PNEUMOVAX) [facility] Pneumococcal 2018-03-01 Completed [facility] Polysaccharide, 00:00:00 [facility] PPSV23 (PNEUMOVAX) [facility] Pneumococcal 2018-03-01 Completed [facility] Polysaccharide, 00:00:00 [facility] PPSV23 (PNEUMOVAX) [facility] Pneumococcal 2018-03-01 Completed [facility] Polysaccharide, 00:00:00 [facility] PPSV23 (PNEUMOVAX) [facility] Pneumococcal 2018-03-01 Completed [facility] Polysaccharide, 00:00:00 [facility] PPSV23 (PNEUMOVAX) [facility] Pneumococcal 2018-03-01 Completed [facility] Polysaccharide, 00:00:00 [facility] PPSV23 (PNEUMOVAX) [facility] Pneumococcal 2018-03-01 Completed [facility] Polysaccharide, 00:00:00 [facility] PPSV23 (PNEUMOVAX) [facility] Pneumococcal 2018-03-01 Completed [facility] Polysaccharide, 00:00:00 [facility] PPSV23 (PNEUMOVAX) [facility] Pneumococcal 2018-03-01 Completed [facility] Polysaccharide, 00:00:00 [facility] PPSV23 (PNEUMOVAX) [facility] Pneumococcal 2018-03-01 Completed [facility] Polysaccharide, 00:00:00 [facility] PPSV23 (PNEUMOVAX) [facility] Pneumococcal 2018-03-01 Completed [facility] Polysaccharide, 00:00:00 [facility] PPSV23 (PNEUMOVAX) [facility] Pneumococcal 2018-03-01 Completed [facility] Polysaccharide, 00:00:00 [facility] PPSV23 (PNEUMOVAX) [facility] Pneumococcal 2018-03-01 Completed [facility] Polysaccharide, 00:00:00 [facility] PPSV23 (PNEUMOVAX) [facility] Pneumococcal 2018-03-01 Completed [facility] Polysaccharide, 00:00:00 [facility] PPSV23 (PNEUMOVAX) [facility] Pneumococcal 2018-03-01 Completed [facility] Polysaccharide, 00:00:00 [facility] PPSV23 (PNEUMOVAX) [facility] Pneumococcal 2018-03-01 Completed [facility] Polysaccharide, 00:00:00 [facility] PPSV23 (PNEUMOVAX) [facility] Pneumococcal 2018-03-01 Completed [facility] Polysaccharide, 00:00:00 [facility] PPSV23 (PNEUMOVAX) [facility] Pneumococcal 2018-03-01 Completed [facility] Polysaccharide, 00:00:00 [facility] PPSV23 (PNEUMOVAX) [facility] Pneumococcal 2018-03-01 Completed [facility] Polysaccharide, 00:00:00 [facility] PPSV23 (PNEUMOVAX) [facility] Pneumococcal 2018-03-01 Completed [facility] Polysaccharide, 00:00:00 [facility] PPSV23 (PNEUMOVAX) [facility] Pneumococcal 2018-03-01 Completed [facility] Polysaccharide, 00:00:00 [facility] PPSV23 (PNEUMOVAX) [facility] Pneumococcal 2018-03-01 Completed [facility] Polysaccharide, 00:00:00 [facility] PPSV23 (PNEUMOVAX) [facility] Pneumococcal 2018-03-01 Completed [facility] Polysaccharide, 00:00:00 [facility] PPSV23 (PNEUMOVAX) [facility] Pneumococcal 2018-03-01 Completed [facility] Polysaccharide, 00:00:00 [facility] PPSV23 (PNEUMOVAX) [facility] Pneumococcal 2018-03-01 Completed [facility] Pol[facility], 00:[facility]:00 [place] [facility] PPSV23 (PNEUMOVAX) [facility] Pneumococcal 2018-03-01 Completed [facility] Pol[facility], 00:00:00 [place] [facility] PPSV23 (PNEUMOVAX) [facility] Pneumococcal 2018-03-01 Completed [facility] Polysaccharide, 00:00:00 [place] [facility] PPSV23 (PNEUMOVAX) [facility] Pneumococcal 2018-03-01 Completed [facility] Polysaccharide, 00:00:00 [place] [facility] PPSV23 (PNEUMOVAX) [facility] Pneumococcal 2018-03-01 Completed [facility] Polysaccharide, 00:00:00 [place] [facility] PPSV23 (PNEUMOVAX) [facility] Pneumococcal 2018-03-01 Completed [facility] Polysaccharide, 00:00:00 [place] [facility] PPSV23 (PNEUMOVAX) [facility] Pneumococcal 2018-03-01 Completed [facility] Polysaccharide, 00:00:00 [place] [facility] PPSV23 (PNEUMOVAX) [facility] Pneumococcal 2018-03-01 Completed [facility] Polysaccharide, 00:00:00 [place] [facility] PPSV23 (PNEUMOVAX) [facility] Pneumococcal 2018-03-01 Completed [facility] Polysaccharide, 00:00:00 [place] [facility] PPSV23 (PNEUMOVAX) [facility] Pneumococcal 2018-03-01 Completed [facility] Polysaccharide, 00:00:00 [place] [facility] PPSV23 (PNEUMOVAX) [facility] Pneumococcal 2018-03-01 Completed [facility] Polysaccharide, 00:00:00 [place] [facility] PPSV23 (PNEUMOVAX) [facility] Pneumococcal 2018-03-01 Completed [facility] Polysaccharide, 00:00:00 [place] [facility] PPSV23 (PNEUMOVAX) [facility] Pneumococcal 2018-03-01 Completed [facility] Polysaccharide, 00:00:00 [place] [facility] PPSV23 (PNEUMOVAX) [facility] Pneumococcal 2018-03-01 Completed [facility] Polysaccharide, 00:00:00 [place] [facility] PPSV23 (PNEUMOVAX) [facility] Pneumococcal 2018-03-01 Completed [facility] Polysaccharide, 00:00:00 [place] [facility] PPSV23 (PNEUMOVAX) [facility] Pneumococcal 2018-03-01 Completed [facility] Polysaccharide, 00:00:00 [place] [facility] PPSV23 (PNEUMOVAX) [facility] Pneumococcal 2018-03-01 Completed [facility] Polysaccharide, 00:00:00 [place] [facility] PPSV23 (PNEUMOVAX) [facility] Pneumococcal 2018-03-01 Completed [facility] Polysaccharide, 00:00:00 [place] [facility] PPSV23 (PNEUMOVAX) [facility] Pneumococcal 2018-03-01 Completed [facility] Polysaccharide, 00:00:00 [place] [facility] PPSV23 (PNEUMOVAX) [facility] Pneumococcal 2018-03-01 Completed [facility] Polysaccharide, 00:00:00 [place] [facility] PPSV23 (PNEUMOVAX) [facility] Pneumococcal 2018-03-01 Completed [facility] Polysaccharide, 00:00:00 [place] [facility] PPSV23 (PNEUMOVAX) [facility] Pneumococcal 2018-03-01 Completed [facility] Polysaccharide, 00:00:00 [place] [facility] PPSV23 (PNEUMOVAX) [facility] Pneumococcal 2018-03-01 Completed [facility] Polysaccharide, 00:00:00 [place] [facility] PPSV23 (PNEUMOVAX) [facility] Pneumococcal 2018-03-01 Completed [facility] Polysaccharide, 00:00:00 [place] [facility] PPSV23 (PNEUMOVAX) [facility] Pneumococcal 2018-03-01 Completed [facility] Polysaccharide, 00:00:00 [place] [facility] PPSV23 (PNEUMOVAX) [facility] Pneumococcal 2018-03-01 Completed [facility] Polysaccharide, 00:00:00 [place] [facility] PPSV23 (PNEUMOVAX) [facility] Pneumococcal 2018-03-01 Completed [facility] Polysaccharide, 00:00:00 [place] [facility] PPSV23 (PNEUMOVAX) [facility] Pneumococcal 2018-03-01 Completed [facility] Polysaccharide, 00:00:00 [place] [facility] PPSV23 (PNEUMOVAX) [facility] Pneumococcal 2018-03-01 Completed [facility] Polysaccharide, 00:00:00 [place] [facility] PPSV23 (PNEUMOVAX) [facility] Pneumococcal 2018-03-01 Completed [facility] Polysaccharide, 00:00:00 [place] [facility] PPSV23 (PNEUMOVAX) [facility] Pneumococcal 2018-03-01 Completed [facility] Polysaccharide, 00:00:00 [place] [facility] PPSV23 (PNEUMOVAX) [facility] Pneumococcal 2018-03-01 Completed [facility] Polysaccharide, 00:00:00 [place] [facility] PPSV23 (PNEUMOVAX) [facility] Pneumococcal 2018-03-01 Completed [facility] Polysaccharide, 00:00:00 [place] [facility] PPSV23 (PNEUMOVAX) [facility] Pneumococcal 2018-03-01 Completed [facility] Polysaccharide, 00:00:00 [place] [facility] PPSV23 (PNEUMOVAX) [facility] Pneumococcal 2018-03-01 Completed [facility] Polysaccharide, 00:00:00 [place] [facility] PPSV23 (PNEUMOVAX) [facility] Pneumococcal 2018-03-01 Completed [facility] Polysaccharide, 00:00:00 [place] [facility] PPSV23 (PNEUMOVAX) [facility] Pneumococcal 2018-03-01 Completed [facility] Polysaccharide, 00:00:00 [place] [facility] PPSV23 (PNEUMOVAX) [facility] Pneumococcal 2018-03-01 Completed [facility] Polysaccharide, 00:00:00 [place] [facility] PPSV23 (PNEUMOVAX) [facility] Pneumococcal 2018-03-01 Completed [facility] Polysaccharide, 00:00:00 [place] [facility] PPSV23 (PNEUMOVAX) [facility] Pneumococcal 2018-03-01 Completed [facility] Polysaccharide, 00:00:00 [place] [facility] PPSV23 (PNEUMOVAX) [facility] Pneumococcal 2018-03-01 Completed [facility] Polysaccharide, 00:00:00 [place] [facility] PPSV23 (PNEUMOVAX) [facility] Pneumococcal 2018-03-01 Completed [facility] Polysaccharide, 00:00:00 [place] [facility] PPSV23 (PNEUMOVAX) [facility] Pneumococcal 2018-03-01 Completed [facility] Polysaccharide, 00:00:00 [place] [facility] PPSV23 (PNEUMOVAX) [facility] Pneumococcal 2018-03-01 Completed [facility] Polysaccharide, 00:00:00 [place] [facility] PPSV23 (PNEUMOVAX) [facility] Pneumococcal 2018-03-01 Completed [facility] Polysaccharide, 00:00:00 [place] [facility] PPSV23 (PNEUMOVAX) [facility] Pneumococcal 2018-03-01 Completed [facility] Polysaccharide, 00:00:00 [place] [facility] PPSV23 (PNEUMOVAX) [facility] Pneumococcal 2018-03-01 Completed [facility] Polysaccharide, 00:00:00 [place] [facility] PPSV23 (PNEUMOVAX) [facility] Pneumococcal 2018-03-01 Completed [facility] Polysaccharide, 00:00:00 [place] [facility] PPSV23 (PNEUMOVAX) [facility] PPD (TB) 2018-02-27 Completed [facility] 00:00:00 [facility] PPD (TB) 2018-02-27 Completed [facility] of 00:00:00 [facility] PPD (TB) 2018-02-27 Completed [facility] of 00:00:00 [facility] PPD (TB) 2018-02-27 Completed [facility] of 00:00:00 [facility] PPD (TB) 2018-02-27 Completed [facility] of 00:00:00 [facility] PPD (TB) 2018-02-27 Completed [facility] of 00:00:00 [facility] PPD (TB) 2018-02-27 Completed [facility] of 00:00:00 [facility] PPD (TB) 2018-02-27 Completed [facility] of 00:00:00 [facility] PPD (TB) 2018-02-27 Completed [facility] of 00:00:00 [facility] PPD (TB) 2018-02-27 Completed [facility] of 00:00:00 [facility] PPD (TB) 2018-02-27 Completed [facility] of 00:00:00 [facility] PPD (TB) 2018-02-27 Completed [facility] of 00:00:00 [facility] PPD (TB) 2018-02-27 Completed [facility] of 00:00:00 [facility] PPD (TB) 2018-02-27 Completed [facility] of 00:00:00 [facility] PPD (TB) 2018-02-27 Completed [facility] of 00:00:00 [facility] PPD (TB) 2018-02-27 Completed [facility] of 00:00:00 [facility] PPD (TB) 2018-02-27 Completed [facility] of 00:00:00 [facility] PPD (TB) 2018-02-27 Completed [facility] of 00:00:00 [facility] PPD (TB) 2018-02-27 Completed [facility] of 00:00:00 [facility] PPD (TB) 2018-02-27 Completed [facility] of 00:00:00 [facility] PPD (TB) 2018-02-27 Completed [facility] of 00:00:00 [facility] PPD (TB) 2018-02-27 Completed [facility] 00:00:00 [facility] PPD (TB) 2018-02-27 Completed [facility] of 00:00:00 [facility] PPD (TB) 2018-02-27 Completed [facility] of 00:00:00 [facility] PPD (TB) 2018-02-27 Completed [facility] of 00:00:00 [facility] PPD (TB) 2018-02-27 Completed [facility] of 00:00:00 [facility] PPD (TB) 2018-02-27 Completed [facility] of 00:00:00 [facility] PPD (TB) 2018-02-27 Completed [facility] 00:00:00 [facility] PPD (TB) 2018-02-27 Completed [facility] of 00:00:00 [facility] PPD (TB) 2018-02-27 Completed [facility] of 00:00:00 [facility] PPD (TB) 2018-02-27 Completed [facility] of 00:00:00 [facility] PPD (TB) 2018-02-27 Completed [facility] of 00:00:00 [facility] PPD (TB) 2018-02-27 Completed [facility] 00:00:00 [facility] PPD (TB) 2018-02-27 Completed [facility] of 00:00:00 [facility] PPD (TB) 2018-02-27 Completed [facility] of 00:00:00 [facility] PPD (TB) 2018-02-27 Completed [facility] of 00:00:00 [facility] PPD (TB) 2018-02-27 Completed [facility] of 00:00:00 [facility] PPD (TB) 2018-02-27 Completed [facility] of 00:00:00 [facility] PPD (TB) 2018-02-27 Completed [facility] of 00:00:00 [facility] PPD (TB) 2018-02-27 Completed [facility] of 00:00:00 [facility] PPD (TB) 2018-02-27 Completed [facility] 00:00:00 [facility] PPD (TB) 2018-02-27 Completed [facility] of 00:00:00 [facility] PPD (TB) 2018-02-27 Completed [facility] 00:00:00 [facility] PPD (TB) 2018-02-27 Completed [facility] 00:00:00 [facility] PPD (TB) 2018-02-27 Completed [facility] of 00:00:00 [facility] PPD (TB) 2018-02-27 Completed [facility] of 00:00:00 [facility] PPD (TB) 2018-02-27 Completed [facility] of 00:00:00 [facility] PPD (TB) 2018-02-27 Completed [facility] of 00:00:00 [facility] PPD (TB) 2018-02-27 Completed [facility] of 00:00:00 [facility] PPD (TB) 2018-02-27 Completed [facility] of 00:00:00 [facility] PPD (TB) 2018-02-27 Completed [facility] of 00:00:00 [facility] PPD (TB) 2018-02-27 Completed [facility] of 00:00:00 [facility] PPD (TB) 2018-02-27 Completed [facility] of 00:00:00 [facility] PPD (TB) 2018-02-27 Completed [facility] of 00:00:00 [facility] PPD (TB) 2018-02-27 Completed [facility] of 00:00:00 [facility] PPD (TB) 2018-02-27 Completed [facility] of 00:00:00 [facility] PPD (TB) 2018-02-27 Completed [facility] of 00:00:00 [facility] PPD (TB) 2018-02-27 Completed [facility] of 00:00:00 [facility] PPD (TB) 2018-02-27 Completed [facility] of 00:00:00 [facility] PPD (TB) 2018-02-27 Completed [facility] of 00:00:00 [facility] PPD (TB) 2018-02-27 Completed [facility] of 00:00:00 [facility] PPD (TB) 2018-02-27 Completed [facility] of 00:00:00 [facility] PPD (TB) 2018-02-27 Completed [facility] of 00:00:00 [facility] PPD (TB) 2018-02-27 Completed [facility] of 00:00:00 [facility] PPD (TB) 2018-02-27 Completed [facility] of 00:00:00 [facility] PPD (TB) 2018-02-27 Completed [facility] of 00:00:00 [facility] PPD (TB) 2018-02-27 Completed [facility] of 00:00:00 [facility] PPD (TB) 2018-02-27 Completed [facility] of 00:00:00 [facility] PPD (TB) 2018-02-27 Completed [facility] of 00:00:00 [facility] PPD (TB) 2018-02-27 Completed [facility] of 00:00:00 [facility] PPD (TB) 2018-02-27 Completed [facility] of 00:00:00 [facility] PPD (TB) 2018-02-27 Completed [facility] of 00:00:00 [facility] PPD (TB) 2018-02-27 Completed [facility] of 00:00:00 [facility] PPD (TB) 2018-02-27 Completed [facility] of 00:00:00 [facility] PPD (TB) 2018-02-27 Completed [facility] of 00:00:00 [facility] PPD (TB) 2018-02-27 Completed [facility] of 00:00:00 [facility] PPD (TB) 2018-02-27 Completed [facility] of 00:00:00 [facility] PPD (TB) 2018-02-27 Completed [facility] of 00:00:00 [facility] PPD (TB) 2018-02-27 Completed [facility] of 00:00:00 [facility] PPD (TB) 2018-02-27 Completed [facility] of 00:00:00 [facility] PPD (TB) 2018-02-27 Completed [facility] of 00:00:00 [facility] PPD (TB) 2018-02-27 Completed [facility] of 00:00:00 [facility] PPD (TB) 2018-02-27 Completed [facility] of 00:00:00 [facility] PPD (TB) 2018-02-27 Completed [facility] of 00:00:00 [facility] PPD (TB) 2018-02-27 Completed [facility] of 00:00:00 [facility] PPD (TB) 2018-02-27 Completed [facility] of 00:00:00 [facility] PPD (TB) 2018-02-27 Completed [facility] of 00:00:00 [facility] PPD (TB) 2018-02-27 Completed [facility] of 00:00:00 [facility] Vital Signs Vital Name Observation Time Observation Value Comments Source Systolic blood 2021-04-22 15:38:00 128 mm[Hg] [facility] of pressure [facility] Diastolic blood 2021-04-22 15:38:00 79 mm[Hg] Unive rsity of pressure [facility] Heart rate 2021-04-22 15:38:00 73 /min [facility] Body temperature 2021-04-22 15:38:[facility] 2021-04-22 15:38:[address] [facility] Body weight 2021-04-22 15:38:[address] [facility] BMI 2021-04-22 15:38:00 31.59 kg/m2 [facility] Systolic blood 2021-04-22 15:38:00 128 mm[Hg] Univer sity of pressure [facility] Diastolic blood 2021-04-22 15:38:00 79 mm[Hg] Unive rsity of pressure [facility] Heart rate 2021-04-22 15:38:00 73 /min [facility] Body temperature 2021-04-22 15:38:00 36.61 [facility] Body height 2021-04-22 15:38:00 170.2 cm [facility] Body weight 2021-04-22 15:38:00 91.491 kg [facility] BMI 2021-04-22 15:38:00 31.59 kg/m2 [facility] Systolic blood 2020-06-23 16:05:00 143 mm[Hg] [facility]iver sity of pressure [facility] Diastolic blood 2020-06-23 16:05:00 76 mm[Hg] Unive rsity of [facility] Heart rate 2020-06-23 16:05:00 80 /min [facility] Body temperature 2020-06-23 16:05:00 36.83 [facility] Respiratory rate 2020-06-23 16:05:00 18 /min [facility] ersity of [facility] Oxygen saturation in 2020-06-23 16:05:00 96 /min [facility] of Arterial blood by [facility] Body height 2020-06-21 01:16:00 170.2 cm [facility] Body weight 2020-06-21 01:16:00 111.494 kg [facility] BMI 2020-06-21 01:16:00 38.50 kg/m2 [facility] Body weight 2020-04-28 21:00:00 102 kg [facility] BMI 2020-04-28 21:00:00 35.22 kg/m2 [facility] Systolic blood 2020-03-30 19:05:00 152 mm[Hg] Univer sity of pressure [facility] Diastolic blood 2020-03-30 19:05:00 77 mm[Hg] Unive rsity of pressure [facility] Respiratory rate 2020-03-30 19:05:00 20 /min [facility] ers[facility] Body height 2020-03-30 15:17:00 170.2 cm [facility] Body weight 2020-03-30 15:17:00 101.969 kg [facility] BMI 2020-03-30 15:17:00 35.21 kg/m2 [facility] Heart rate 2020-03-30 13:46:00 95 /min [facility] Body temperature 2020-03-30 13:46:00 36.39 [facility] Oxygen saturation in 2020-03-30 13:46:00 97 /min [facility] Arterial blood by [place] [employer] Pulse oxim[facility] Systolic blood 2020-03-05 22:00:00 148 mm[Hg] Univer sity of pressure [facility] Diastolic blood 2020-03-05 22:00:00 78 mm[Hg] Unive rsity of pressure [facility] Heart rate 2020-03-05 22:00:00 76 /min [facility] Respiratory rate 2020-03-05 22:00:00 15 /min Univ ers[facility] Oxygen saturation in 2020-03-05 22:00:00 96 /min [facility] Arterial blood by [place] [employer] Pulse oximetry [place] Body temperature 2020-03-05 19:42:00 36.61 [facility] Body height 2020-03-05 16:10:00 170.2 cm [facility] Body weight 2020-03-05 16:10:00 98.9 kg [facility] BMI 2020-03-05 16:10:00 34.15 kg/m2 [facility] Systolic blood 2019-11-14 16:05:00 109 mm[Hg] Univer sity of pressure [facility] Diastolic blood 2019-11-14 16:05:00 70 mm[Hg] Unive rsity of pressure [facility] Heart rate 2019-11-14 16:05:00 73 /min [facility] Oxygen saturation in 2019-11-14 16:05:00 99 /min [facility] Arterial blood by [place] [employer] P[facility] oxim[facility] Body temperature 2019-11-14 16:04:00 36 [facility] blood 2019-11-07 16:58:00 149 mm[Hg] Univer sity of pressure [facility] Diastolic blood 2019-11-07 16:58:00 91 mm[Hg] Unive rsity of pressure [facility] Heart rate 2019-11-07 16:58:00 90 /min [facility]i [facility] Body temperature 2019-11-07 16:58:00 36.11 [facility] 2019-11-07 16:58:00 87.272 kg [facility]i [facility] BMI 2019-11-07 16:58:00 30.13 kg/m2 [facility] Oxygen saturation in 2019-11-07 16:58:00 99 /min [facility] Arterial blood by [facility] Pulse oxim[facility] Heart Rate 2020-08-12 23:15:00 [facility] Respitory Rate 2020-08-12 23:15:00 [facility] Systolic (mm Hg) 2020-08-12 23:15:00 [facility] Diastolic (mm Hg) 2020-08-12 23:15:00 [facility] Temperature Oral (F) 2020-08-12 23:15:00 98.1 F [facility] Temperature Oral (F) 2020-08-12 19:20:00 98.0 F [facility] Heart Rate 2020-08-12 19:20:00 [facility] Respitory Rate 2020-08-12 19:20:00 [facility] Systolic (mm Hg) 2020-08-12 19:20:00 [facility] Diastolic (mm Hg) 2020-08-12 19:20:00 [facility] Respitory Rate 2020-08-12 19:00:00 [facility] Systolic (mm Hg) 2020-08-12 19:00:00 [facility] Diastolic (mm Hg) 2020-08-12 19:00:00 [facility] Temperature Oral (F) 2020-08-12 14:00:00 97.7 F [facility] Heart Rate 2020-08-12 14:00:00 [facility] Temperature Oral (F) 2020-08-10 06:00:00 98.3 F [facility] Heart Rate 2020-08-10 06:00:00 [facility] Respitory Rate 2020-08-10 06:00:00 [facility] Systolic (mm Hg) 2020-08-10 06:00:00 [facility] Diastolic (mm Hg) 2020-08-10 06:00:00 [facility] Temperature Oral (F) 2020-08-10 02:00:00 98.4 F [facility] Heart Rate 2020-08-10 02:00:00 [facility] Respitory Rate 2020-08-10 02:00:00 [facility] Systolic (mm Hg) 2020-08-10 02:00:00 [facility] Diastolic (mm Hg) 2020-08-10 02:00:00 [facility] Temperature Oral (F) 2020-08-09 22:00:00 98.3 F [facility] Heart Rate 2020-08-09 22:00:00 [facility] Respitory Rate 2020-08-09 22:00:00 [facility] Systolic (mm Hg) 2020-08-09 22:00:00 [facility] Diastolic (mm Hg) 2020-08-09 22:00:00 [facility] Height 2020-08-07 03:47:00 170.18 cm [facility] Weight 2020-08-07 03:47:00 [facility] BMI Calculated 2020-08-07 03:47:00 [facility] Height 2020-08-06 18:59:00 152.4 cm [facility] BMI Calculated 2020-08-06 18:59:00 [facility] Weight 2020-08-06 18:59:00 [facility] Respitory Rate 2020-07-24 16:17:00 [facility] Systolic (mm Hg) 2020-07-24 16:17:00 [facility] Diastolic (mm Hg) 2020-07-24 16:17:00 [facility] Temperature Oral (F) 2020-07-24 16:17:00 98.0 F [facility] Respitory Rate 2020-07-24 15:04:00 [facility] Systolic (mm Hg) 2020-07-24 15:04:00 [facility] Diastolic (mm Hg) 2020-07-24 15:04:00 [facility] Heart Rate 2020-07-24 15:04:00 [facility] Temperature Oral (F) 2020-07-24 15:04:00 97.9 F [facility] Height 2020-07-24 14:45:00 170.18 cm [facility] BMI Calculated 2020-07-24 14:45:00 [facility] Weight 2020-07-24 14:45:00 [facility] Heart Rate 2020-07-24 13:10:00 [facility] Respitory Rate 2020-07-24 13:10:00 [facility] Systolic (mm Hg) 2020-07-24 13:10:00 [facility] Diastolic (mm Hg) 2020-07-24 13:10:00 [facility] Height 2020-07-24 12:55:00 170.18 cm [facility] BMI Calculated 2020-07-24 12:55:00 [facility] Weight 2020-07-24 12:55:00 [facility] Heart Rate 2020-07-24 12:55:00 [facility] Temperature Oral (F) 2020-07-24 12:55:00 98.2 F [facility] Heart Rate 2020-07-15 19:07:00 [facility] Respitory Rate 2020-07-15 19:07:00 [facility] Systolic (mm Hg) 2020-07-15 19:07:00 [facility] Diastolic (mm Hg) 2020-07-15 19:07:00 [facility] Temperature Oral (F) 2020-07-15 17:00:00 98.1 F [facility] Heart Rate 2020-07-15 17:00:00 [facility] Systolic (mm Hg) 2020-07-15 17:00:00 [facility] Diastolic (mm Hg) 2020-07-15 17:00:00 [facility] Respitory Rate 2020-07-15 17:00:00 [facility] Temperature Oral (F) 2020-07-15 13:00:00 98.3 F [facility] Heart Rate 2020-07-15 13:00:00 [facility] Systolic (mm Hg) 2020-07-15 13:00:00 [facility] Diastolic (mm Hg) 2020-07-15 13:00:00 [facility] Temperature Oral (F) 2020-07-15 09:00:00 98.1 F [facility] Respitory Rate 2020-07-15 09:00:00 [facility] Height 2020-07-06 10:14:00 170.18 cm [facility] BMI Calculated 2020-07-06 10:14:00 [facility] Weight 2020-07-06 10:14:00 [facility] Systolic (mm Hg) 2020-05-21 15:01:00 [facility] Diastolic (mm Hg) 2020-05-21 15:01:00 [facility] Heart Rate 2020-05-21 15:01:00 [facility] Respitory Rate 2020-05-21 15:01:00 [facility] Height 2020-05-21 13:15:00 170.18 cm [facility] BMI Calculated 2020-05-21 13:15:00 [facility] Weight 2020-05-21 13:15:00 [facility] Systolic (mm Hg) 2020-05-21 13:15:00 [facility] Diastolic (mm Hg) 2020-05-21 13:15:00 [facility] Heart Rate 2020-05-21 13:15:00 [facility] Respitory Rate 2020-05-21 13:15:00 [facility] Temperature Oral (F) 2020-05-21 13:15:00 98.5 F [facility] Systolic (mm Hg) 2020-03-23 14:05:00 [facility] Diastolic (mm Hg) 2020-03-23 14:05:00 [facility] Systolic (mm Hg) 2020-03-23 13:00:00 [facility] Diastolic (mm Hg) 2020-03-23 13:00:00 [facility] Temperature Oral (F) 2020-03-23 13:00:00 98.5 F [facility] Heart Rate 2020-03-23 13:00:00 [facility] Respitory Rate 2020-03-23 13:00:00 [facility] Systolic (mm Hg) 2020-03-23 11:10:00 [facility] Diastolic (mm Hg) 2020-03-23 11:10:00 [facility] Respitory Rate 2020-03-23 11:10:00 [facility] Heart Rate 2020-03-23 11:10:00 [facility] Temperature Oral (F) 2020-03-23 11:10:00 98.4 F [facility] Respitory Rate 2020-03-23 09:42:00 [facility] Heart Rate 2020-03-23 09:42:00 [facility] Temperature Oral (F) 2020-03-23 08:46:00 98.3 F [facility] Height 2020-03-23 05:39:00 170.18 cm [facility] BMI Calculated 2020-03-23 05:39:00 [facility] Weight 2020-03-23 05:39:00 [facility] Systolic (mm Hg) 2020-02-03 23:19:00 [facility] Diastolic (mm Hg) 2020-02-03 23:19:00 [facility] Respitory Rate 2020-02-03 23:19:00 [facility] Heart Rate 2020-02-03 23:19:00 [facility] Temperature Oral (F) 2020-02-03 23:19:00 98.6 F [facility] Systolic (mm Hg) 2020-02-03 22:04:00 [facility] Diastolic (mm Hg) 2020-02-03 22:04:00 [facility] Respitory Rate 2020-02-03 22:04:00 [facility] Heart Rate 2020-02-03 22:04:00 [facility] Systolic (mm Hg) 2020-02-03 20:14:00 [facility] Diastolic (mm Hg) 2020-02-03 20:14:00 [facility] Respitory Rate 2020-02-03 20:14:00 [facility] Heart Rate 2020-02-03 20:14:00 [facility] Temperature Oral (F) 2020-02-03 20:14:00 98.5 F [facility] Height 2020-02-03 19:22:00 170.18 cm [facility] BMI Calculated 2020-02-03 19:22:00 [facility] Weight 2020-02-03 19:22:00 [facility] Temperature Oral (F) 2020-02-03 19:22:00 99.0 F [facility] Temperature Oral (F) 2019-11-05 18:00:00 98.3 F [facility] Heart Rate 2019-11-05 18:00:00 [facility] Respitory Rate 2019-11-05 18:00:00 [facility] Systolic (mm Hg) 2019-11-05 18:00:00 [facility] Diastolic (mm Hg) 2019-11-05 18:00:00 [facility] Temperature Oral (F) 2019-11-05 14:00:00 98.1 F [facility] Heart Rate 2019-11-05 14:00:00 [facility] Respitory Rate 2019-11-05 14:00:00 [facility] Systolic (mm Hg) 2019-11-05 14:00:00 [facility] Diastolic (mm Hg) 2019-11-05 14:00:00 [facility] Respitory Rate 2019-11-05 12:36:00 [facility] Temperature Oral (F) 2019-11-05 10:00:00 98.0 F [facility] Heart Rate 2019-11-05 10:00:00 [facility] Systolic (mm Hg) 2019-11-05 10:00:00 [facility] Diastolic (mm Hg) 2019-11-05 10:00:00 [facility] Height 2019-10-29 07:23:00 170.18 cm [facility] Weight 2019-10-29 07:23:00 [facility] BMI Calculated 2019-10-29 07:23:00 [facility] Height 2019-10-29 01:03:00 170.18 cm [facility] BMI Calculated 2019-10-29 01:03:00 [facility] Weight 2019-10-29 01:03:00 [facility] Temperature Oral (F) 2019-08-20 14:07:00 98.8 F [facility] Heart Rate 2019-08-20 14:07:00 [facility] Respitory Rate 2019-08-20 14:07:00 [facility] Systolic (mm Hg) 2019-08-20 14:07:00 [facility] Diastolic (mm Hg) 2019-08-20 14:07:00 [facility] Systolic (mm Hg) 2019-08-20 12:15:00 [facility] Diastolic (mm Hg) 2019-08-20 12:15:00 [facility] Heart Rate 2019-08-20 12:15:00 [facility] Temperature Oral (F) 2019-08-20 09:46:00 98.3 F [facility] Heart Rate 2019-08-20 09:46:00 [facility] Respitory Rate 2019-08-20 09:46:00 [facility] Systolic (mm Hg) 2019-08-20 09:46:00 [facility] Diastolic (mm Hg) 2019-08-20 09:46:00 [facility] Temperature Oral (F) 2019-08-20 06:02:00 98.5 F [facility] Respitory Rate 2019-08-20 06:02:00 [facility] Height 2019-08-14 22:12:00 175.26 cm [facility] Weight 2019-08-14 22:12:00 [facility] BMI Calculated 2019-08-14 22:12:00 [facility] Respitory Rate 2019-04-08 17:36:00 [facility] Systolic (mm Hg) 2019-04-08 17:36:00 [facility] Diastolic (mm Hg) 2019-04-08 17:36:00 [facility] Temperature Oral (F) 2019-04-08 17:36:00 98.0 F [facility] Heart Rate 2019-04-08 17:36:00 [facility] Respitory Rate 2019-04-08 13:23:00 [facility] Heart Rate 2019-04-08 13:23:00 [facility] Temperature Oral (F) 2019-04-08 13:23:00 98.1 F [facility] Systolic (mm Hg) 2019-04-08 13:23:00 [facility] Diastolic (mm Hg) 2019-04-08 13:23:00 [facility] Systolic (mm Hg) 2019-04-08 08:40:00 [facility] Diastolic (mm Hg) 2019-04-08 08:40:00 [facility] Respitory Rate 2019-04-08 08:40:00 [facility] Heart Rate 2019-04-08 08:40:00 [facility] Temperature Oral (F) 2019-04-08 08:40:00 98.0 F [facility] Weight 2019-04-06 04:23:00 [facility] BMI Calculated 2019-04-06 04:17:00 [facility] Height 2019-04-06 04:17:00 167.64 cm [facility] Weight 2019-04-06 04:17:00 [facility] Respitory Rate 2018-07-24 20:59:00 [facility] Systolic (mm Hg) 2018-07-24 20:59:00 [facility] Diastolic (mm Hg) 2018-07-24 20:59:00 [facility] Heart Rate 2018-07-24 20:59:00 [facility] Temperature Oral (F) 2018-07-24 20:59:00 98.2 F [facility] Temperature Oral (F) 2018-07-24 16:59:00 98.3 F [facility] Heart Rate 2018-07-24 16:59:00 [facility] Respitory Rate 2018-07-24 16:59:00 [facility] Systolic (mm Hg) 2018-07-24 16:59:00 [facility] Diastolic (mm Hg) 2018-07-24 16:59:00 [facility] Systolic (mm Hg) 2018-07-24 16:33:00 [facility] Diastolic (mm Hg) 2018-07-24 16:33:00 [facility] Temperature Oral (F) 2018-07-24 16:33:00 98.2 F [facility] Respitory Rate 2018-07-24 16:33:00 [facility] Heart Rate 2018-07-24 16:33:00 [facility] Weight 2018-07-22 11:03:00 [facility] BMI Calculated 2018-07-22 11:03:00 [facility] Height 2018-07-22 11:03:00 170.18 cm [facility] BMI Calculated 2018-07-22 01:54:00 [facility] Height 2018-07-22 01:54:00 170.18 cm [facility] Weight 2018-07-22 01:54:00 [facility] Respitory Rate 2018-07-21 02:35:00 [facility] Temperature Oral (F) 2018-07-21 02:35:00 98.6 F [facility] Systolic (mm Hg) 2018-07-21 02:35:00 [facility] Diastolic (mm Hg) 2018-07-21 02:35:00 [facility] Respitory Rate 2018-07-20 23:36:00 [facility] Systolic (mm Hg) 2018-07-20 23:36:00 [facility] Diastolic (mm Hg) 2018-07-20 23:36:00 [facility] Systolic (mm Hg) 2018-07-20 22:37:00 [facility] Diastolic (mm Hg) 2018-07-20 22:37:00 [facility] Respitory Rate 2018-07-20 22:37:00 [facility] Heart Rate 2018-07-20 22:37:00 [facility] Temperature Oral (F) 2018-07-20 22:37:00 97.7 F [facility] Height 2018-07-20 22:37:00 170.18 cm [facility] BMI Calculated 2018-07-20 22:37:00 [facility] Weight 2018-07-20 22:37:00 [facility] BMI Calculated 2018-05-23 15:20:00 [facility] Weight 2018-05-23 15:20:00 [facility] Respitory Rate 2018-05-23 15:20:00 [facility] Heart Rate 2018-05-23 15:20:00 [facility] Height 2018-05-23 15:20:00 170 cm [facility] Systolic (mm Hg) 2018-05-23 15:20:00 [facility] Diastolic (mm Hg) 2018-05-23 15:20:00 [facility] Systolic (mm Hg) 2018-04-15 21:25:00 [facility] Diastolic (mm Hg) 2018-04-15 21:25:00 [facility] Respitory Rate 2018-04-15 16:40:00 [facility] Heart Rate 2018-04-15 16:40:00 [facility] Systolic (mm Hg) 2018-04-15 16:40:00 [facility] Diastolic (mm Hg) 2018-04-15 16:40:00 [facility] Temperature Oral (F) 2018-04-15 16:40:00 98.2 F [facility] Heart Rate 2018-04-15 13:15:00 [facility] Temperature Oral (F) 2018-04-15 13:15:00 98.0 F [facility] Systolic (mm Hg) 2018-04-15 13:15:00 [facility] Diastolic (mm Hg) 2018-04-15 13:15:00 [facility] Respitory Rate 2018-04-15 13:15:00 [facility] Temperature Oral (F) 2018-04-15 09:31:00 98.2 F [facility] Heart Rate 2018-04-15 09:31:00 [facility] Respitory Rate 2018-04-15 09:31:00 [facility] Weight 2018-04-15 07:53:00 [facility] Weight 2018-04-14 23:25:00 [facility] Height 2018-04-14 23:25:00 172.72 cm [facility] BMI Calculated 2018-04-14 23:25:00 [facility] Systolic (mm Hg) 2018-03-20 16:07:00 [facility] Diastolic (mm Hg) 2018-03-20 16:07:00 [facility] Respitory Rate 2018-03-20 16:07:00 [facility] Heart Rate 2018-03-20 16:07:00 [facility] Temperature Oral (F) 2018-03-20 16:07:00 98.4 F [facility] Systolic (mm Hg) 2018-03-20 12:44:00 [facility] Diastolic (mm Hg) 2018-03-20 12:44:00 [facility] Respitory Rate 2018-03-20 12:44:00 [facility] Heart Rate 2018-03-20 12:44:00 [facility] Temperature Oral (F) 2018-03-20 12:44:00 98.3 F [facility] Respitory Rate 2018-03-20 08:46:00 [facility] Temperature Oral (F) 2018-03-20 08:46:00 98.3 F [facility] Heart Rate 2018-03-20 08:46:00 [facility] Systolic (mm Hg) 2018-03-20 08:46:00 [facility] Diastolic (mm Hg) 2018-03-20 08:46:00 [facility] BMI Calculated 2018-03-17 12:01:00 [facility] Weight 2018-03-17 12:01:00 [facility] Height 2018-03-17 12:01:00 167.64 cm [facility] Weight 2018-03-17 07:27:00 [facility] Temperature Oral (F) 2018-01-23 03:30:00 98.2 F [facility] Respitory Rate 2018-01-23 03:30:00 [facility] Systolic (mm Hg) 2018-01-23 03:30:00 [facility] Diastolic (mm Hg) 2018-01-23 03:30:00 [facility] Respitory Rate 2018-01-23 01:48:00 [facility] Heart Rate 2018-01-23 01:48:00 [facility] Systolic (mm Hg) 2018-01-23 01:48:00 [facility] Diastolic (mm Hg) 2018-01-23 01:48:00 [facility] Temperature Oral (F) 2018-01-23 00:14:00 98.2 F [facility] Respitory Rate 2018-01-23 00:14:00 [facility] Systolic (mm Hg) 2018-01-23 00:14:00 [facility] Diastolic (mm Hg) 2018-01-23 00:14:00 [facility] Heart Rate 2018-01-23 00:14:00 [facility] BMI Calculated 2018-01-23 00:14:00 [facility] Height 2018-01-23 00:14:00 165.1 cm [facility] Weight 2018-01-23 00:14:00 [facility] Systolic (mm Hg) 2017-12-20 12:31:00 [facility] Diastolic (mm Hg) 2017-12-20 12:31:00 [facility] Temperature Oral (F) 2017-12-20 12:31:00 98.0 F [facility] Respitory Rate 2017-12-20 12:31:00 [facility] Heart Rate 2017-12-20 12:31:00 [facility] Systolic (mm Hg) 2017-12-20 05:00:00 [facility] Diastolic (mm Hg) 2017-12-20 05:00:00 [facility] Temperature Oral (F) 2017-12-20 05:00:00 98 F [facility] Heart Rate 2017-12-20 05:00:00 [facility] Respitory Rate 2017-12-20 05:00:00 [place] Temperature Oral (F) 2017-12-20 01:00:00 97.6 F [facility] Heart Rate 2017-12-20 01:00:00 [facility] Systolic (mm Hg) 2017-12-20 01:00:00 [facility] Diastolic (mm Hg) 2017-12-20 01:00:00 [facility] Respitory Rate 2017-12-20 01:00:00 [place] [facility] BMI Calculated 2017-12-15 16:46:00 [facility] Weight 2017-12-15 16:46:00 [facility] Height 2017-12-15 16:46:00 170.18 cm [facility] Height 2017-12-15 16:11:00 170.18 cm [facility] Weight 2017-12-15 11:31:00 [facility] Procedures Procedure Date / Time Performing Source Performed Clinician [place] MYOCARDIUM PERFUSION STRESS AND 2021-04-01 [facility] REST 17:22:00 A [facility] MYOCARDIUM PERFUSION STRESS AND 2021-04-01 [facility] REST 17:22:00 A [facility] MYOCARDIUM PERFUSION STRESS AND 2021-04-01 [facility] REST 17:22:00 A [facility] MYOCARDIUM PERFUSION STRESS AND 2021-04-01 [facility] REST 17:22:00 [facility] PHOSPHORUS 2020-06-23 [facility] 10:46:00 [facility] MAGNESIUM 2020-06-23 [facility] 10:46:00 [facility] BASIC METABOLIC PANEL (NA, K, CL, 2020-06-23 [facility] CO2, GLUCOSE, BUN, CREATININE, CA) 10:46:00 [facility] EXTRA TUBE LAV 2020-06-23 Pam Louis [facility] 10:46:00 [facility] ECHO ROUTINE W/DOPPLER COLOR 2020-06-22 Angelica Bob Un iversity of 17:29:39 [facility] MAGNESIUM 2020-06-21 [facility] of 09:15:00 [facility] BASIC METABOLIC PANEL (NA, K, CL, 2020-06-21 [facility] of CO2, GLUCOSE, BUN, CREATININE, CA) 09:15:00 [facility] AMMONIA, PLASMA 2020-06-21 [facility] of 03:42:00 [facility] TROPONIN I 2020-06-21 [facility], [facility] of 03:42:00 [facility] VITAMIN D, 25-OH 2020-06-21 [facility], [facility] of 03:42:00 [facility] COVID-19 (ID NOW RAPID TESTING) 2020-06-20 Quita Guzman [facility] of 21:32:00 [facility] PHOSPHORUS 2020-06-20 [facility] of 20:00:00 [facility] LIPASE 2020-06-20 Cristo Seth [facility] of 20:00:00 [facility] MAGNESIUM 2020-06-20 Quita Guzman [facility] of 20:00:00 [facility] FERRITIN SERUM 2020-06-20 [facility] of 20:00:00 [facility] TROPONIN I 2020-06-20 Seth Lemons [facility] of 20:00:00 [facility] THYROID STIMULATING HORMONE 2020-06-20 [facility] versity of 20:00:00 [facility] COMP. METABOLIC PANEL (61914) 2020-06-20 Seth Lemons iversity of 20:00:00 [facility] DIFF CONSULT INTERPRETATION 2020-06-20 Angelica Bob Uni versity of 20:00:00 [facility] CBC WITH DIFF 2020-06-20 Seth Lemons of 20:00:00 [facility] PROTHROMBIN TIME / INR 2020-06-20 Seth Lemonsit y of 20:00:00 [facility] ACTIVATED PARTIAL THRMPLAS JAYSON 2020-06-20 Seth Lemons U niversity of 20:00:00 [facility] N-TERMINAL PRO-BNP 2020-06-20 Quita Guzman [facility] of 20:00:00 [facility] XR CHEST 1 VW 2020-06-20 Seth Lemons of 19:49:02 [facility] EKG-12 LEAD 2020-06-20 Seth Lemons of 19:35:17 [facility] EKG-12 LEAD 2020-06-20 Seth Lemons [facility] of 19:33:43 [facility] CONSENT/REFUSAL FOR DIAGNOSIS AND 2020-06-20 Doctor Raúl frias, [facility] 19:01:59 [facility] NOTICE OF PRIVACY PRACTICES 2020-06-20 Doctor Unassigned, U niversity of 19:01:30 [facility] AGREEMENTS AUTHORIZATIONS AND 2020-06-20 Doctor Unassoliverio, [facility] IRREVOCABLE ASSIGNMENTS (FORM 05:01:00 [facility] [place] ABDOMEN PELVIS W WO CONTRAST 2020-04-28 Benji Duvall [facility] 17:36:41 [facility] ASSIGNMENT OF BENEFITS 2020-04-28 Doctor Unassigned, Univer sity of 16:46:09 [facility] CONSENT/REFUSAL FOR DIAGNOSIS AND 2020-04-28 Doctor Raúl frias [facility] 16:45:14 [facility] EXTERNAL PROVIDER RECORDS 2020-04-23 Doctor Unassigned, Uni versity of 05:01:00 [facility] PHOSPHORUS 2020-03-30 Benji Duvall [facility] 11:08:00 [facility] MAGNESIUM 2020-03-30 Benji Duvall [facility] 11:08:00 [facility] BASIC METABOLIC PANEL (NA, K, CL, 2020-03-30 Tobias Duvall [facility] CO2, GLUCOSE, BUN, CREATININE, CA) 11:08:00 [facility] EXTRA TUBE LT. BLUE 2020-03-30 [facility] o f 11:08:00 Shakir [facility] PHOSPHORUS 2020-03-29 Benji Duvall [facility] 10:20:00 [facility] MAGNESIUM 2020-03-29 Benji Duvall [facility] 10:20:00 [facility] BASIC METABOLIC PANEL (NA, K, CL, 2020-03-29 Tobias Duvall [facility] CO2, GLUCOSE, BUN, CREATININE, CA) 10:20:00 [facility] CBC WITH DIFFERENTIAL 2020-03-29 Benji Duvall [facility] ity of 10:20:00 [facility] HEPATIC FUNCTION PANEL (93058) 2020-03-28 Med [facility] U niversity of (ALB,T.PRO,BILI 18:42:00 [facility] T,BU/BC,ALT,AST,ALK PHOS) Branch PHOSPHORUS 2020-03-28 Benji Duvall [facility] of 10:35:00 [facility] MAGNESIUM 2020-03-28 Benji Duvall [facility] of 10:35:00 [facility] BASIC METABOLIC PANEL (NA, K, CL, 2020-03-28 Tobias Duvall [facility] CO2, GLUCOSE, BUN, CREATININE, CA) 10:35:00 [facility] CBC WITH DIFFERENTIAL 2020-03-28 Benji Duvall Univers ity of 10:35:[address] [facility] [address] ABDOMEN PELVIS W WO CONTRAST 2020-03-27 [facility] of 17:47:47 [facility] MAGNESIUM 2020-03-27 Benji Duvall [facility] 10:59:00 [facility] BASIC METABOLIC PANEL (NA, K, CL, 2020-03-27 Tobias Duvall [facility] CO2, GLUCOSE, BUN, CREATININE, CA) 10:59:00 [facility] CBC WITH DIFFERENTIAL 2020-03-27 Preston Evangelista [facility] of 10:59:00 [facility] PROTHROMBIN TIME / INR 2020-03-27 [facility] 10:59:00 [facility] HEPATITIS B SURFACE ANTIBODY 2020-03-27 Tulio Antunez Un iversity of 10:59:00 [facility] HEPATITIS B SURFACE ANTIGEN 2020-03-27 Tulio Antunez Uni versity of 10:59:00 [facility] DISCLOSURE AND CONSENT, MEDICAL 2020-03-27 Doctor Mica escalera, [facility] AND SURGICAL PROCEDURES 05:01:00 [facility] 2020-03-26 Carol [facility] of 21:56:00 [facility] PROTHROMBIN TIME / INR 2020-03-26 Benji Duvall Univer sity of 20:08:00 [facility] MAGNESIUM 2020-03-26 Aiden Gamino [facility] of 10:27:00 [facility] BASIC METABOLIC PANEL (NA, K, CL, 2020-03-26 Aiden Gamino [facility] of CO2, GLUCOSE, BUN, CREATININE, CA) 10:27:00 [facility] CBC WITH DIFFERENTIAL 2020-03-26 Preston Evangelista [facility] of 10:27:00 [facility] TRANSFUSE PACKED RBC 2020-03-25 [facility] of 17:06:01 [facility] PREPARE PACKED RBC 2020-03-25 [facility] of 15:28:45 [facility] CANCER ANTIGEN-GI (CA 19-9) 2020-03-25 [facility] ersity of 15:28:00 [facility] AMYLASE 2020-03-25 [facility] of 15:28:00 [facility] LIPASE 2020-03-25 [facility] of 15:28:00 [facility] CARCINOEMBRYONIC ANTIGEN 2020-03-25 [facility] ity of 15:28:00 [facility] ALPHA FETOPROTEIN 2020-03-25 [facility] of 15:28:00 [facility] PHOSPHORUS 2020-03-25 [facility] 10:02:00 [facility]NESIUM 2020-03-[facility] 10:02:00 [facility] BASIC METABOLIC PANEL (NA, K, CL, 2020-03-[facility] CO2, GLUCOSE, BUN, CREATININE, CA) 10:02:00 [facility] PROFILE / HEMOGRAM 2020-03-25 [facility] 10:02:00 [facility] PROFILE / HEMOGRAM 2020-03-25 [facility] 03:27:00 [facility] POCT GLUCOSE (AUTOMATED) 2020-03-24 Angie Cleaning [facility] ity of 22:00:00 [facility] SURGICAL PATHOLOGY EXAM 2020-03-24 [facility] ty of 20:28:00 [facility] EGD (ENDO) 2020-03-24 [facility] of 20:03[facility]13 [facility] ESOPHAGO[facility]STR[facility]ODENOSCOPY 2020-03-24 [place] [facility] rsity of 19:55:00 [facility] BLOOD CULTURE SCREEN 2020-03-24 Benji Duvall [facility] ty of 19:07:00 [facility] PROFILE / HEMOGRAM 2020-03-24 Hanny [facility] of 18:57:00 [facility] POCT GLUCOSE (AUTOMATED) 2020-03-24 Angie Cleaning [facility] ity of 16:59:00 [facility] X[facility] CHEST 1 VW 2020-03-24 Benji Duvall [facility] 15:48:00 [facility] COVID-19 (ID NOW RAPID TESTING) 2020-03-24 Shelley Aguirre [facility] of 15:20:00 [facility] PHOSPHORUS 2020-03-24 Hanny [facility] of 14:09:00 [facility] MAGNESIUM 2020-03-24 Hanny [facility] of 14:09:00 [facility] COMP. METABOLIC PANEL ([id number]) 2020-03-24 Preston Evangelista Un iversity of 14:09:00 [facility] BODY FLUID DIRECT COUNT 2020-03-24 Villatoro, [facility] ty of 13:07:00 [facility] PROFILE / HEMOGRAM 2020-03-24 [facility] of 12:43:00 [facility] TRANSFUSE PACKED RBC 2020-03-24 [facility] of 12:06:[address] [facility] [address] ANGIOGRAM ABDOMEN/PELVIS 2020-03-24 [facility] versity of 10:53:16 [facility] PROFILE / HEMOGRAM 2020-03-24 [facility] of 07:18:00 [facility] TRANSFERRIN 2020-03-24 [facility] of 00:55:00 [facility] FERRITIN SERUM 2020-03-24 [facility] of 00:54:00 [facility] IRON 2020-03-24 [facility] of 00:54:00 [facility] TOTAL IRON BINDING CAPACITY 2020-03-24 [facility] versity of 00:54:00 [facility] PROFILE / HEMOGRAM 2020-03-24 [facility] 00:54:00 [facility] HEMOCHROMATOSIS(HFE)3 MUTATION 2020-03-24 [facility] of 00:54:00 [facility] PREPARE PACKED RBC 2020-03-23 [facility] of 21:26:21 [facility] BODY FLUID DIRECT COUNT 2020-03-23 Villatoro, [facility] ty of 20:46:00 [facility] BODY FLUID 2020-03-23 [facility] of CULTURE(AEROBIC/ANAEROBIC) 20:46:[address] [facility] [address] THORAX WO CONTRAST 2020-03-23 Carol [facility] of 20:20:[address] [facility] [address] ABDOMEN PELVIS WO CONTRAST 2020-03-23 Med [place] iversity of 20:14:32 [facility] HB ABO GROUPING 2020-03-23 BrewsterPreston [facility] of 20:10:00 [facility] COMP. METABOLIC PANEL ([id number]) 2020-03-23 Lew Daniel U niversity of 17:34:00 [facility] CBC WITH DIFFERENTIAL 2020-03-23 Lew Danielit y of 17:34:00 [facility] PROTHROMBIN TIME / INR 2020-03-23 Lew Danieli ty of 17:34:00 [facility] ACTIVATED PARTIAL THRMPLAS JAYSON 2020-03-23 Lew Daniel [facility] of 17:34:00 [facility] FIBRINOGEN 2020-03-23 Melodie Danielshua [facility] of 17:34:00 [facility] POTASSIUM SERUM 2020-03-05 Speedy Ramirez [facility] of 16:48:00 [facility] POCT GLUCOSE (AUTOMATED) 2020-03-05 Teodora Merrill ity of 16:25:00 [facility] DAY SURGERY [facility] 2020-03-05 Doctor Pamela, [facility] rsity of 05:01:00 [facility] XR CHEST 2 VW 2019-06-17 EsdrasAdilia brito [facility] 19:22:05 [facility] PATIENT FINANCIAL POLICY 2019-06-17 Doctor Pamela, [facility] 19:01:22 [facility] NO SHOW OR MISSED APPOINTMENT 2019-06-17 Doctor Pamela, [facility] POLICY ACKNOWLEDGEMENT 19:01:10 [facility] TRANSPLANT/EXT PROVIDER PROCEDURE 2019-05-09 Doctor Raúl frias [facility] 05:01:00 [facility] Dialysis access site care [facility] Knee maneuver [facility] Shoulder manipulation [facility] En[facility] Start End Encounter Admission Attending Care Care Encounter Source Date/Time Date/Time Type Type Clinicians Facility Department ID 2021-08-06 Emergency [facility] [id number] Univers 17:13:07 ity [facility] 2021-08-06 Outpatient Adalberto SHARIF [facility] LELO [id number] Univers 10:57:39 OMID lam [facility] 2021-08-05 Outpatient R DESIRAE [facility] DSKelly [id number] Univers 21:35:24 TEODORA lam [facility] 2019-04-05 Inpatient E [facility] MED [id number] [facility] L 20:14:00 2019-04-05 [facility] [id number] [facility] H 18:31:48 2021-08-02 2021-08-02 [facility] [id number] Univers 11:53:00 23:59:00 Encounter Pat A RODNEY [id number] ity of [facility] [id number] [place]usmane as [id number] [address] 2021-08-02 2021-08-02 [facility] [id number] Univers 00:00:00 00:00:00 ADILIA ity o f [facility] 2021-08-02 2021-08-02 Abstract [facility] [id number] Univers 00:00:00 00:00:00 Adilia Clayton MULTISPEC [id number] [id number] [id number] [address] [facility] 2021-07-30 2021-07-30 Abstract [facility] [id number] Univers 00:00:00 00:00:00 Adilia Clayton MULTISPEC [id number] [id number] [id number] [address] [facility] 2021-07-28 2021-07-28 [facility] [id number] Univers 12:38:00 23:59:00 Encounter Pat A RODNEY [id number] ity of [facility] [id number] [place] as [id number] [address] 2021-07-28 2021-07-28 Outpatient R [facility] ACO [id number] Univers 00:00:00 00:00:00 ity of [facility] 2021-07-09 2021-07-09 [facility] [id number] Univers 00:00:00 00:00:00 (Out) Adilia Clayton MULTISPEC [id number] [id number] [id number] [facility] AND CR[facility] [facility] 2021-04-22 2021-04-22 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 [id number] Univers 11:34:18 11:49:18 Visit [facility] [id number] ity of CLINICS [id number] [id number] [facility] [address] 2021-04-22 2021-04-22 Office [facility] 1.2.709.073 [id number] 10:30:14 11:33:56 Visit [facility] 350.1.13.10 CLINICS 4.2.7.2.686 [id number] [facility] 2021-04-22 2021-04-22 Office [facility] 1.2.015.519 [id number] Univers 10:30:14 11:33:56 Visit [facility] 350.1.13.10 i ty of CL[place]ICS [place] [id number] [facility] [address] 2021-04-22 2021-04-22 [facility] [id number] Univers 10:45:00 10:45:00 TEODORA [facility] 2021-04-22 2021-04-22 Outpatient [facility] [id number] -[id number] Univers 10:00:00 10:00:00 TEODORA [id number] [facility] 2021-04-21 2021-04-21 Telephone [facility] 1.2.840.114 [id number] Univers 00:00:00 00:00:00 Adilia Clayton MULTISPEC 350.1.13.10 it[place] [id number] [facility] [address] [facility] 2021-04-21 2021-04-21 Telephone [facility] 1.2.840.114 [id number] Univers 00:00:00 00:00:00 Pat A MULTISPEC 350.1.13.10 ity of IALTY 4.2.7.2.686 [facility] CENTER [id number] [facility] [address] DI[facility] CL[facility] 2021-04-20 2021-04-20 Abstract [facility] 1.2.830.670 [id number] 2868 Univers 00:00:00 00:00:00 Pat A MULTISPEC 350.1.13.10 ity of IALTY 4.2.7.2.686 [facility] CENTER [id number] [facility] [address] [facility] 2021-04-07 2021-04-07 [facility] 1.2.901.341 [id number] Univers 11:37:00 23:59:00 Encounter Pat A RODNEY 350.1.13.10 ity of [facility] 4.2.7.2.686 [place] [phone] [facility] [address] 2021-04-07 2021-04-07 Outpatient [facility] [id number] Univers 00:00:00 00:00:00 PAT ity o f [facility] 2021-04-01 2021-04-01 [facility] 1.2.867.909 [id number] 7483 Univers 10:38:32 23:59:00 Encounter Pat A SPECIALTY 350.1.13.10 ity of CARE 4.2.7.2.686 [facility] CENTER AT [phone] Nv mario [facility] 805 [facility] ER 2021-04-01 2021-04-01 Outpatient [facility] [id number] Univers 12:00:00 12:00:00 PAT ity o f [facility] 2021-04-01 2021-04-01 [facility] 1.2.003.678 [id number] 7481 Univers 10:37:49 10:37:49 Encounter Pat A SPECIALTY 350.1.13.10 it[place] AT [phone] Nv mario READ 805 [facility] ER 2021-04-01 2021-04-01 [facility] 1.2.953.465 8723 7482 Univers 10:37:17 10:37:17 Encounter Pat A SPECIALTY 350.1.13.10 ity [place] AT [phone] Nv mario READ [address] [place] [address] 2021-04-01 2021-04-01 [facility] 1.2.690.721 [id number] 7480 Univers 10:36:10 10:36:10 Encounter Pat A SPECIALTY 350.1.13.10 ity of [place] AT [phone] Nv mario READ [address] [place] [address] 2021-03-29 2021-03-29 Telephone Janay [facility] 1.2.840.114 [id number] Univers 00:00:00 00:00:00 Dionne carballo MULTISPEC 350.1.13.10 it[place] [id number] [facility] DAYAMI [address] [facility] 2021-03-25 2021-03-25 Outpatient [facility] [id number] Univers 12:00:00 12:00:00 PAT ity o f [facility] 2021-03-25 2021-03-25 Outpatient R [facility] [id number] Q-20 Univers 11:30:00 11:30:00 PAT [id number] ity o f [facility] 2021-03-25 2021-03-25 Abstract Gómez-Jef [facility] 1.2.840.114 [id number] Univers 00:00:00 00:00:00 Dionne carballo MULTISPEC 350.1.13.10 it[place] [id number] [facility] DAYAMI [address] [facility] 2021-03-16 2021-03-16 Outpatient R [facility] [id number] Univers 10:00:00 10:00:00 PAT ity o [facility] 2021-02-19 2021-02-19 Telephone [facility] 1.2.840.114 [id number] Univers 00:00:00 00:00:00 Pat A MULTISPEC 350.1.13.10 ity of IALTY 4.2.7.2.686 [facility] [id number] [address] DIABETES CLINIC 2021-02-18 2021-02-18 Outpatient R [facility] [id number] Univers 11:00:00 11:00:00 PAT ity o [facility] 2021-02-18 2021-02-18 Outpatient R [facility] [id number] Q-20 Univers 00:00:00 00:00:00 PAT [id number] ity o [facility] 2021-02-03 2021-02-03 Abstract [facility] 1.2.813.823 [id number] Univers 00:00:00 00:00:00 Pat A MULTISPEC 350.1.13.10 ity of IALTY 4.2.7.2.686 [facility] [phone] [address] DIABETES CLINIC 2021-01-21 2021-01-21 Outpatient R [facility] [id number] Univers 08:00:00 08:00:00 PAT ity o [facility] 2021-01-08 2021-01-08 Letter [facility] 1.2.840.114 [id number] Univers 00:00:00 00:00:00 (Out) Pat A MULTISPEC 350.1.13.10 ity of IALTY 4.2.7.2.686 [facility] [place] [id number] [facility] [address] [facility] 2021-01-06 2021-01-06 Telephone [facility] 1.2.840.114 [id number] Univers 00:00:00 00:00:00 Pat A MULTISPEC 350.1.13.10 ity of IALTY 4.2.7.2.686 [facility] [id number] [address] DIABETES CLINIC 2020-12-18 2020-12-18 Telephone [facility] 1.2.840.114 [id number] Univers 00:00:00 00:00:00 Pat A MULTISPEC 350.1.13.10 ity of IALTY 4.2.7.2.686 [facility] [id number] [address] DI[facility]ETES CLINIC 2020-12-17 2020-12-17 Outpatient R [facility] [id number] Q-20 Univers 11:30:00 11:30:00 PAT [id number] ity o [facility] 2020-12-17 2020-12-17 Outpatient R [facility] [id number] Univers 08:00:00 08:00:00 PAT ity o [facility] 2020-12-01 2020-12-01 Telephone [facility] 1.2.840.114 [id number] Univers 00:00:00 00:00:00 Pat A MULTISPEC 350.1.13.10 ity of IALTY 4.2.7.2.686 [facility] [phone] [address] DIABETES CLINIC 2020-11-12 2020-11-12 Telephone [facility] 1.2.840.114 [id number] Univers 00:00:00 00:00:00 Pat A MULTISPEC 350.1.13.10 ity of IALTY 4.2.7.2.686 [facility] [id number] [address] DIABETES CLINIC 2020-11-12 2020-11-12 Abstract [facility] 1.2.821.510 [id number] 7131 Univers 00:00:00 00:00:00 Pat A MULTISPEC 350.1.13.10 ity of IALTY 4.2.7.2.686 [facility] [id number] [facility] [address] DI[facility] CLINIC 2020-10-30 2020-10-30 Hospital Esdras YESENIA 1.2.999.785 [id number] Univers 14:23:00 23:59:00 Encounter Adilia Clayton RODNEY 350.1.13.10 ity of [facility] 4.2.7.2.686 [place] [id number] [place] [address] 2020-10-30 2020-10-30 Outpatient [facility] [id number] Univers 00:00:00 00:00:00 PAT ity o f [facility] 2020-08-28 2020-08-28 Abstract [facility] 1.2.926.948 [id number] Univers 00:00:00 00:00:00 Pat Forrest MULTISPEC 350.1.13.10 ity [facility] 4.2.7.2.686 [facility] CENTER [id number] [address] DIABETES CLINIC 2020-08-06 2020-08-13 Inpatient nullFlavo [facility] [id number] Memoria 18:41:30 00:50:00 adalberto Adames [facility] 2020-08-06 2020-08-06 Inpatient E [facility] MED [id number] [facility] 20:29:00 18:33:00 2020-07-27 2020-07-27 Outpatient R CHELA JOHN [facility] [id number] 0Q-20 Univers 14:30:00 14:30:00 [id number] ity [facility] 2020-07-27 2020-07-27 Outpatient R CHELA [facility] [id number] Univers 14:30:00 14:30:00 ity [facility] 2020-07-24 2020-07-24 Emergency [facility]Flavo [facility] [id number] [id number] Memoria 12:53:57 16:22:00 adalberto Chatterjee [facility] 2020-07-24 2020-07-24 Emergency E [facility]BL 7511 [facility]BL 07:53:00 07:53:00 2020-07-06 2020-07-15 Inpatient nullFlavo [facility] [id number] Memoria 10:06:46 22:00:00 r Marlo 10 l [facility] 2020-07-06 2020-07-06 Inpatient E [facility] MED 7510 [facility] 08:50:00 05:06:00 2020-06-24 2020-06-24 Transition Linda Green 1.2.840.114 [id number] Univers 00:00:00 00:00:00 of Care Jair Clayton Davila 350.1.13.10 ity of [place] 4.2.7.2.686 Tai s [id number] [facility] [address] 2020-06-20 2020-06-23 [facility] Quita Guzman 1.2.840.1 14 [id number] Univers 14:27:00 18:40:00 Encounter Pam Louis 350.1.13.10 ity of [facility] 4.2.7.2.686 [place] [id number] [facility] [address] 2020-06-12 2020-06-12 Outpatient R [facility] [id number] -[id number] Univers 13:15:00 13:15:00 ity of [facility] 2020-05-21 2020-05-21 Emergency [facility] [id number] Memoria 13:09:59 15:59:00 adlaberto Sellers 09 l [facility] 2020-05-21 2020-05-21 Emergency E [facility] MHBL [id number] MHBL 08:09:00 08:09:00 2020-05-19 2020-05-19 Outpatient R [facility] [id number] -[id number] Univers 14:15:00 14:15:00 [id number] ity of [facility] 2020-05-18 2020-05-18 Outpatient R [facility] [id number] -[id number] Univers 13:15:00 13:15:00 ity of [facility] 2020-05-13 2020-05-13 Juan Luis Sharif [facility] 1.2.813.665 [id number] Univers 00:00:00 00:00:00 Management Omid HEMPHILL 350.1.13.10 ity of SCIENCES 4.2.7.2.686 [place] as BLDG [id number] [facility] [address] 2020-05-13 2020-05-13 Telephone Chela [facility] 1.2.840.114 [id number] Univers 00:00:00 00:00:00 Winsons SPECIALTY 350.1.13.10 [place] AT [phone] Nv mario READ 072 [facility] ER 2020-05-01 2020-05-01 [facility] 1.2.015.595 [id number] Univers 00:00:00 00:00:00 Pat Forrest MULTISPEC 350.1.13.10 ity [place] [id number] [facility] AND STOCK [address] DI[facility] CLINIC 2020-04-28 2020-04-28 [facility] 1.2.840.114 [id number] Univers 11:00:00 23:59:00 Encounter Benji Ulrich SPECIALTY 350.1.13.10 ity of CARE 4.2.7.2.686 [facility] AT [id number] Nv mario READ 801 [facility] ER 2020-04-28 2020-04-28 Outpatient R CHELA [facility] [id number] Univers 15:30:00 15:30:00 ity of [facility] 2020-04-28 2020-04-28 Outpatient [facility] [id number] 20Q-20 Univers 11:00:00 11:00:00 BENJI [id number] ity of [facility] 2020-04-28 2020-04-28 [facility] 1.2.840.114 [id number] Univers 07:00:15 07:30:15 ne Visit Fedeestela SPECIALTY 350.1.13.10 ity of C[place].2.[place].2.[place] AT [phone] Nv mario READ [address] [place] [address] 2020-04-23 2020-04-23 Orders Doctor PATTERSON 1.2.840.114 [id number] Univers 00:00:00 00:00:00 Only Unassigned, RODNEY 350.1.13.10 ity of [facility] 4.2.7.2.686 [place] as [id number] [facility] [address] 2020-04-21 2020-04-21 Telephone [facility] 1.2.979.959 [id number] Univers 00:00:00 00:00:00 Teodora SPECIALTY 350.1.13.10 ity of C[place].2.[place] AT [phone] Nv mario [address] [facility] ER 2020-04-06 2020-04-06 Abstract [facility] 1.2.770.934 [id number] 2164 Univers 00:00:00 00:00:00 Adilia Clayton MULTISPEC 350.1.13.10 ity of [place] [id number] [facility] AND [address] DIABETES CLINIC 2020-04-01 2020-04-01 Transition Linda Green 1.2.840.114 [id number] Univers 00:00:00 00:00:00 of Care Jair Davila 350.1.13.10 ity of [place]2.7.[place] [id number] [facility] [address] 2020-03-23 2020-03-30 [facility] [id number] Univers 12:01:00 16:00:00 RUPAK ity of [facility] 2020-03-23 2020-03-30 [facility] Janee Cleaning 1.2.840.114 [id number] Univers 12:01:00 16:00:00 Encounter ana Shakir Terrazsa 350.1.13.10 ity of [facility] 4.2.7.2.686 [place] [id number] [facility] [address] 2020-03-30 2020-03-30 Telephone [facility] 1.2.853.765 [id number] Univers 00:00:00 00:00:00 Teodora MULTISPEC 350.1.13.10 it[place] of [place] [id number] [address] DIABETES CLINIC 2020-03-30 2020-03-30 YESENIA Espinoza 1.2.122.454 [id number] 8579 Univers 00:00:00 00:00:00 Management Anna TERRAZAS 350.1.13.10 ity [facility] 4.2.7.2.686 [place] Neela [phone] [facility] [address] 2020-03-23 2020-03-23 Emergency [facility] [id number] Memoria 05:18:16 15:31:00 r Kihei 08 l [facility] 2020-03-23 2020-03-23 Emergency E [facility] MHBL [id number] MHBL 00:18:00 00:18:00 2020-03-17 2020-03-17 [facility] YESENIA Eldridge 1.2.840.114 [id number] Univers 09:23:34 23:59:00 Encounter Ramses RODNEY 350.1.13.10 ity of [facility] 4.2.7.2.686 [place] [phone] [facility] [address] 2020-03-13 2020-03-13 Case [facility] 1.2.355.069 [id number] [id number] Univers 00:00:00 00:00:00 Management Teodora Mauricio HEALTH 350.1.13.10 ity of CLINICS [place] [id number] [address] 2020-03-12 2020-03-12 Outpatient [facility] [id number] -[id number] Univers 13:30:00 13:30:00 TEODORA [id number] ity of [facility] 2020-03-12 2020-03-12 Outpatient R [facility] [id number] Univers 13:30:00 13:30:00 TEODORA ity of [facility] 2020-03-12 2020-03-12 [facility] 1.2.840.114 [id number] Univers 12:21:58 12:51:58 ne Visit Teodora Mauricio HEALTH 350.1.13.10 ity of CLIN[place].2.[place] [id number] [address] 2020-03-05 2020-03-05 [facility] Janee Merrill 1.2.840.114 [id number] Univers 10:50:00 17:31:00 Encounter Teodora [place] 350.1.13.10 ity of Hospital 4.2.7.2.686 [place] [id number] [facility] [address] 2020-03-05 2020-03-05 Orders Doctor YESENIA 1.2.840.114 [id number] Univers 00:00:00 00:00:00 Only Unassigned, RODNEY 350.1.13.10 ity of [facility] 4.2.7.2.686 [place] [id number] [facility] [address] 2020-03-04 2020-03-04 Laboratory Only, Adc Test [facility] 1.2.840. 114 [id number] Univers 15:20:13 15:35:13 Only Teodora Merrill 350.1.13.10 ity of [place].2.7.2.[place] [id number] Nv dical [facility] 353 [facility] 2020-03-04 2020-03-04 Outpatient R [facility] [id number] -[id number] Univers 15:00:00 15:00:00 [id number] ity [facility] 2020-03-04 2020-03-04 Outpatient [facility] [id number] Univers 15:00:00 15:00:00 [facility] 2020-02-13 2020-02-13 Juan Luis Johnson [facility] 1.2.840.114 [id number] Univers 00:00:00 00:00:00 Management Jisha MULTISPEC 350.1.13.10 it[place] [id number] [facility] AND STOCK [address] DI[facility]ETES CLINIC 2020-02-03 2020-02-03 Emergency [facility] [id number] Memoria 19:07:14 23:44:00 r Kihei 07 l [facility] 2020-02-03 2020-02-03 Emergency E [facility] MHBL 7507 MHBL 14:07:00 14:07:00 2020-01-22 2020-01-22 [facility] 1.2.857.106 [id number] Univers 00:00:00 00:00:00 Adilia Clayton MULTISPEC 350.1.13.10 [place] [id number] [address] DI[facility]ETES CLINIC 2020-01-08 2020-01-08 Hospital YESENIA Eldridge 1.2.840.114 [id number] Univers 11:14:48 23:59:00 Encounter Ramses TERRAZAS 350.1.13.10 ity of HOSPITAL 4.2.7.2.686 [place] [id number] [place] [address] [address] 2020-01-08 2020-01-08 Outpatient [facility] [id number] [id number] Univers 00:00:00 00:00:00 RAMSES lam o f [facility] 2019-12-19 2019-12-19 [facility] 1.2.754.007 [id number] Univers 00:00:00 00:00:00 Adilia Clayton MULTISPEC 350.1.13.10 ity of IALTY 4.2.7.2.686 [facility] [place] [id number] [address] [facility]ES CLINIC 2019-12-18 2019-12-18 Telephone [facility] 1.2.021.107 [id number] Univers 00:00:00 00:00:00 Clayton MULTISPEC 350.1.13.10 ity of IALTY 4.2.7.2.686 [facility] [place] [id number] [address] [facility]ES CLINIC 2019-12-13 2019-12-13 [facility] 1.2.991.995 [id number] 4389 Univers 00:00:00 00:00:00 Teodora SPECIALTY 350.1.13.10 ity of CARE 4.2.7.2.686 [facility] [place] AT [phone] Nv mario [address] 2019-12-13 2019-12-13 Case [facility] 1.2.840.114 [id number] Univers 00:00:00 00:00:00 Management Teodora MULTISPEC 350.1.13.10 ity of IALTY 4.2.7.2.686 [facility] [id number] [address] [facility]ES CLINIC 2019-12-10 2019-12-10 Case [facility] 1.2.840.114 [id number] Univers 00:00:00 00:00:00 Management Teodora MULTISPEC 350.1.13.10 it[place] [id number] [address] [facility]ES CLINIC 2019-12-10 2019-12-10 Letter [facility] 1.2.840.114 [id number] Univers 00:00:00 00:00:00 (Out) Pat A MULTISPEC 350.1.13.10 ity of IALTY 4.2.7.2.686 [facility] [id number] [address] [facility] 2019-12-10 2019-12-10 Abstract [facility] 1.2.165.771 [id number] 5674 Univers 00:00:00 00:00:00 Pat A MULTISPEC 350.1.13.10 ity of IALTY 4.2.7.2.686 [facility] [id number] [address] [facility]ES CLIN[facility] 2019-12-10 2019-12-10 Telephone [facility] 1.2.840.114 [id number] Univers 00:00:00 00:00:00 Pat A MULTISPEC 350.1.13.10 ity of IALTY 4.2.7.2.686 [facility] [id number] [address] [facility]ES [facility]INIC 2019-12-10 2019-12-10 Telephone [facility] 1.2.840.114 [id number] Univers 00:00:00 00:00:00 Pat A MULTISPEC 350.1.13.10 ity of IALTY 4.2.7.2.686 [facility] [id number] [address] [facility]ES [facility]IN[facility] 2019-12-10 2019-12-10 Telephone [facility] 1.2.840.114 [id number] Univers 00:00:00 00:00:00 Pat A MULTISPEC 350.1.13.10 it[place]2.[place] [id number] [address] [facility]ES CLINIC 2019-12-10 2019-12-10 [facility] 1.2.508.631 [id number] 5825 Univers 00:00:00 00:00:00 [facility] 350.1.13.10 [facility] [id number] [address] [facility] 2019-11-19 2019-11-19 Telephone [facility] 1.2.078.990 [id number] Univers 00:00:00 00:00:00 Teodora MULTISPEC 350.1.13.10 it[place]2.[place].2.[place] [id number] [address] [facility]IN[facility] 2019-11-14 2019-11-14 Office Teodora Merrill [facility] 1.2.840.114 [id number] Univers 09:07:17 10:35:09 Visit Adilia Olsen MULTISPEC 350.1.13 .10 ity of IALTY 4.2.7.2.686 [facility] [id number] [address] [facility] 2019-11-07 2019-11-07 Office BlackAngie gates [facility] 1.2. 840.114 [id number] Univers 09:48:36 16:20:31 Visit Adilia Olsen MULTISPEC 350.1.13 .10 it[place] of [place]2.[place] [id number] [address] [facility]ES [facility]IN[facility] 2019-10-29 2019-11-06 Inpatient [facility] [id number] Memoria 00:57:20 02:15:00 adalberto Sellers 06 l [facility] 2019-10-30 2019-10-28 Inpatient E [facility] MED 7506 [facility] 14:55:00 23:23:00 2019-08-16 2019-08-20 [id number] Memoria 00:36:00 19:40:00 adalberto Sellers 10 l [facility] 2019-08-15 2019-08-14 Inpatient U [facility] MED 9310 [facility] 18:36:00 15:56:00 2019-07-08 2019-07-08 Committee [facility] 1.2.387.551 [id number] Univers 00:00:00 00:00:00 Review Teodora MULTISPEC 350.1.13.10 ity of IALTY 4.2.7.2.686 [facility] [place] [id number] [facility] [address] DIABETES [facility] 2019-07-08 2019-07-08 Abstract [facility] 1.2.283.688 [id number] Univers 00:00:00 00:00:00 Adilia Clayton MULTISPEC 350.1.13.10 ity of IALTY 4.2.7.2.686 [facility] [place] [id number] [address] DIABETES [facility] 2019-06-20 2019-06-20 Telephone [facility] 1.2.840.114 [id number] Univers 00:00:00 00:00:00 Adilia Clayton MULTISPEC 350.1.13.10 ity of IALTY 4.2.7.2.686 [facility] [place] [id number] [address] DIABETES [facility] 2019-06-17 2019-06-17 [facility] 1.2.666.955 [id number] [id number] Univers 14:03:07 23:59:00 Encounter Adilia Trejo 350.1.13.10 ity of [place] 4.2.7.2.686 [facility] [place] [id number] [facility] [address] 2019-06-17 2019-06-17 Orders Doctor YESENIA 1.2.840.114 [id number] Univers 00:00:00 00:00:00 Only Unassigned, RODNEY 350.1.13.10 ity of [place] [facility] 4.2.7.2.686 [place] [id number] [facility] [address] 2019-06-17 2019-06-17 Telephone [facility] 1.2.840.114 [id number] Univers 00:00:00 00:00:00 Adilia Clayton MULTISPEC 350.1.13.10 ity of IALTY 4.2.7.2.686 [facility] [place] [id number] [facility] [address] DIABETES [facility] 2019-05-23 2019-05-23 Telephone [facility] 1.2.840.114 [id number] Univers 00:00:00 00:00:00 Pat A MULTISPEC 350.1.13.10 ity of IALT [id number] [facility] [place] [id number] [facility] [address] [facility] 2019-05-21 2019-05-21 Telephone [facility] [id number] Univers 00:00:00 00:00:00 Pat A MULTISPEC 350.1.13.10 ity of IALTY 4.2.7.2.686 [facility] [place] [id number] [address] [facility] 2019-05-09 2019-05-09 Orders Doctor YESENIA [id number] Univers 00:00:00 00:00:00 Only Unassigned, RODNEY 350.1.13.10 ity of [place] [facility] 4.2.7.2.686 [place] as [phone] [facility] [address] 2019-04-06 2019-04-08 [facility] [id number] Memoria 01:14:00 [facility]00 [facility] 2018-10-17 2018-10-17 Outpatient R [facility] [id number] Univers 00:00:00 23:59:00 RAMSES valdes [facility] 2018-07-22 2018-07-24 Inpatient [facility] [id number] Memoria 01:45:00 23:05:00 adalberto Marlo 05 [facility] 2018-07-20 2018-07-21 Emergency [facility] [id number] Memoria 22:20:00 02:38:00 adalberto [place] 04 [facility] 2018-05-23 2018-06-22 OP nullFlavo Transplant [id number] Memoria 14:47:00 04:59:00 Transplant r [place] 00 l Formerly [facility] 2018-04-14 2018-04-15 [facility] [id number] [facility] 23:17:00 21:55:00 n r [place] 03 l [facility] 2018-03-17 2018-03-20 Inpatient [facility] [id number] Memoria 07:25:00 22:12:00 r [place] 02 [facility] 2018-01-22 2018-01-23 Emergency [facility] [id number] Memoria 23:36:00 03:58:00 r [place] 01 [facility] 2017-12-15 2017-12-20 Inpatient [place] [id number] Memoria 11:29:00 18:55:00 r [place] 00 [facility] Results Test Description Test Time Test Comments Results Result [facility] e Comments NM MYOCARDIUM 2021-03-10 1. No evidence of Uni versity of PERFUSION STRESS 4 myocardial ischemia [facility] AND REST 22:53:02 or infarction.2. Branch Normal left ventricular function and motion. Preliminary Report Dictated by Resident: Paolo Coyle I, Juany ?MD. Jen, have reviewed this study and agree with theabove report. MYOCARDIAL PERFUSION EXAM ? HISTORY: Exam requested to evaluate for coronary artery disease. COMPARISON: None available. PROCEDURE/TECHNIQUE: A one-day protocol was utilized. Patient was injected with 16.1 mCi of technetium 99m Myoview for restimaging. A gated SPECT scan was obtained. Patient subsequently received a 0.4 mg Lexiscan infusion followed byintravenous injection of 45 mCi of technetium 99m Myoview. Dr. Coyle waspresent in the room, supervised, and was immediately available to furnishassistance and direction throughout the performance of the stress test. TheEKG was interpreted separately.A gated SPECT scan was obtained. FINDINGS: Pre Stress Test vitals are: BP?145/88, HR?78, Resp?16, O2 sat?94Exercise Vitals: BP?155/82, HR?95, Resp?20, O2 sat?98Post Stress Vitals: BP?141/82, HR?89, Resp?18, O2 sat?95 No perfusion abnormality is noted. The left ventricular wall motion is normal after stress and rest. Ejection fraction at stress: 70%End-diastolic volume at stress: 72mL Ejection fraction rest: 68%End-diastolic volume at rest: 51mL [facility], Radiant Results Inft User - 04/01/2021 5:54 PM CDT MYOCARDIAL PERFUSION EXAM HISTORY: Exam requested to evaluate for coronary artery disease.COMPARISON: None available.PROCEDURE/T ECHNIQUE: A one-day protocol was utilized. Patient was injected with 16.1 mCi of technetium 99m Myoview for restimaging. A gated SPECT scan was obtained.Patient subsequently received a 0.4 mg Lexiscan infusion followed byintravenous injection of 45 mCi of technetium [address] Myoview[address] Dr. Coyle waspresent in the room, supervised, and was immediately available to furnishassistance and direction throughout the performance of the stress test. TheEKG was interpreted separately.A gated SPECT scan was obtained.FINDINGS:Pre Stress Test vitals are: BP?145/88, HR?78, Resp?16, O2 sat?94Exercise Vitals: BP?155/82, HR?95, Resp?20, O2 sat?98Post Stress Vitals: BP?141/82, HR?89, Resp?18, O2 sat?95No perfusion abnormality is noted.The left ventricular wall motion is normal after stress and rest.Ejection fraction at stress: 70%End-diastolic volume at stress: 72mLEjection fraction rest: 68%End-diastolic volume at rest: 03fXRFSIKHANBD9. No evidence of myocardial ischemia or infarction.2. Normal left ventricular function and motion. Preliminary Report Dictated by Resident: Juany Olivares MD., have reviewed this study and agree with theabove report. CHEM PANEL 79 [facility] 4 [place] 09:42:00 CHEM PANEL 21 [facility] 4 [place] 09:42:00 CHEM PANEL 7.93 [facility] 4 [place] 09:42:00 CHEM PANEL 139 [facility] 4 [place] 09:42:00 CHEM PANEL 3.2 [facility] 4 [place] 09:42:00 CHEM PANEL 104 [facility] 4 [place] 09:42:00 CHEM PANEL 27 [facility] 4 [place] 09:42:00 CHEM PANEL 8.8 [facility] 4 [place] 09:42:00 CHEM PANEL 2020-11-0 11.2 [facility] 4 [place] 09:42:00 CHEM PANEL 2020-11-0 7 [facility] 4 [place] 09:42:00 HEMATOLOGY 2020-11-0 4.7 [facility] 4 [place] 09:42:00 HEMATOLOGY 2020-11-0 1.2 [facility] 4 [place] 09:42:00 HEMATOLOGY 2020-11-0 0.2 [facility] 4 [place] 09:42:00 HEMATOLOGY 2020-11-0 0.2 [facility] 4 [place] 09:42:00 HEMATOLOGY 2020-11-0 71.0 [facility] 4 [place] 09:42:00 HEMATOLOGY 2020-11-0 2.0 [facility] 4 [place] 09:42:00 HEMATOLOGY 2020-11-0 18.0 [facility] 4 [place] 09:42:00 HEMATOLOGY 2020-11-0 3.0 [facility] 4 [place] 09:42:00 HEMATOLOGY 2020-11-0 3.0 [facility] 4 [place] 09:42:00 HEMATOLOGY 2020-11-0 2.0 [facility] 4 [place] 09:42:00 HEMATOLOGY 2020-11-0 1.0 [facility] 4 [place] 09:42:00 HEMATOLOGY 2020-11-0 0.0 [facility] 4 [place] 09:42:00 HEMATOLOGY 2020-11-0 1 [facility] 4 [place] 09:42:00 HEMATOLOGY 2020-11-0 Normal (08/12/20 3:42 Kojo rial 4 AM) [place] 09:42:00 HEMATOLOGY 2020-11-0 Normal (08/12/20 3:42 Kojo rial 4 AM) [place] 09:42:00 HEMATOLOGY 2020-08-12 09:42:00 Test Item Value Reference Range Interpretation Comme nts Tot Cell Ct (test code = Tot Cell Ct) 100 1 [facility] ClhgoklSGITYPDYAE1806-70-22 09:42:00Moderate *ABN*(08/12/20 3:42 AM) [facility] ImawuqgOKKRNQZDMO9807-33-30 09:42:006.4[facility] HermannHEMATOLOGY 2020-08-12 09:42:003.02[facility] DgritjcUXKCCHARZK4703-35-70 09:42:009.0[facility] DtduqdvVRAZGNRQHU5876-54-88 09:42:0025.9[facility] QhckdfsHGJJFMWVRK6115-51-57 09:42:0085.7[facility] ExzqurfZBDEBXKELA4952-51-99 09:42:00 Test Item Value Reference Range Interpretation Comments MCH (test code = MCH) 30.0 pg 27.0-31.0 [facility] EuqgthgQBHOSZFYYZ3259-93-65 09:42:0034.9[facility] HermannHEMATOLOGY 2020-08-12 09:42:0014.8[facility] HaebcbzKJENSIBJHT7312-32-37 09:42:05729Lvycihhr QpnqfptKOIBAPFAWW5159-88-81 09:42:007.0[facility] HermannCHEM QYQWD3722-19-19 09:42:0079[facility]annCHEM LOQPU2311-19-62 09:42:0021[facility]annCHEM BEXRA7022-82-14 09:42:007.93[facility]annCHEM PQGWL9773-16-59 09:42:32606 [facility]annCHEM OTMUY7786-76-61 09:42:003.2[facility] HermannCHEM PANEL 2020-08-12 09:42:51024Gfmwrffj HermannCHEM UJGBX8708-38-27 09:42:0027[facility]annCHEM DNEAK9181-20-05 09:42:008.8[facility]annCHEM RHGKN8157-02-82 09:42:0011.2[facility]annCHEM TSWMB4394-26-48 09:42:007[facility] [place] EYNZFXHTPK1735-29-41 09:42:004.7[facility] FlknavbIJUPMDIJCI1397-46-50 09:42:001.2 [facility] OxzklybZYDNWKRSFH8804-53-58 09:42:000.2[facility] HermannHEMATOLOGY 2020-08-12 09:42:000.2[facility] VgojueaPAHQABATYP7903-45-06 09:42:0071.0[facility] PxcqkuoRXJLNCPULG5265-73-64 09:42:002.0[facility] TbcrcxlOOYZRJKWCQ4539-23-79 09:42:0018.0[facility] YvytzzrSFHDEJBJEY5910-79-69 09:42:003.0[facility] [place] CLBBEQTFJZ6553-08-93 09:42:003.0[facility] PtxkazyKPQCSLUFQE3277-62-46 09:42:002.0 [facility] OtqysugUPAQXPPTKD9818-90-16 09:42:001.0[facility] HermannHEMATOLOGY 2020-08-12 09:42:000.0[facility] QqraunwMFYMYGXFWB7718-67-85 09:42:001[facility] RgciefpIBARJWSWVC9667-53-60 09:42:00Normal (08/12/20 3:42 AM)[facility] [place] GUACOUAPBN0307-72-67 09:42:00Normal (08/12/20 3:42 AM)[facility]annHEMATOLOGY 2020-08-12 09:42:00 Test Item Value Reference Range Interpretation Comments Tot Cell Ct (test code = Tot Cell Ct) 100 1 [facility] ZraupvcZHCPHCZEYL8764-33-12 09:42:00Moderate *ABN*(08/12/20 3:42 AM) [facility] TqtrsodQLTFITOCEQ8275-02-90 09:42:006.4[facility] HermannHEMATOLOGY 2020-08-12 09:42:003.02[facility] WbottssLBRBFRRRRO3124-06-24 09:42:009.0[facility] OpfdrqpMCXUEEPDOY6438-76-40 09:42:0025.9[facility] TwvuqwpSEPBGUTPMW6879-84-99 09:42:0085.7[facility] AoowuwfTFNYPJIYSP8030-23-65 09:42:00 Test Item Value Reference Range Interpretation Comments MCH (test code = MCH) 30.0 pg 27.0-31.0 [facility] KgkiitjFHGCVMLCCC0978-37-99 09:42:0034.9[facility] HermannHEMATOLOGY 2020-08-12 09:42:0014.8[facility] NttjsrpOBKORPQAST1618-89-56 09:42:39385Jncmekbt CaaehxvDJSUVVXDAF8539-22-56 09:42:007.0[facility] HermannCHEM LXRXH1802-29-53 09:42:0079[facility]annCHEM UMYKS1827-17-09 09:42:0021[facility]annCHEM NMVPG5258-86-80 09:42:007.93[facility]annCHEM CZNNP4526-52-59 09:42:73882 [facility]annCHEM ATIHD1805-11-07 09:42:003.2[facility] HermannCHEM PANEL 2020-08-12 09:42:25122Cdvflblj HermannCHEM TDWJS6117-60-27 09:42:0027[facility]annCHEM VCXYF0590-19-13 09:42:008.8[facility] HermannCHEM ODDWH4340-68-31 09:42:0011.2[facility]annCHEM MLGNT7498-12-29 09:42:007[facility] [place] VLDEVGWSAS5948-51-03 09:42:004.7[facility] UogjvgbJYQBJQYVKF1603-41-40 09:42:001.2 [facility] WkqvaedQETRMALWSP8027-00-94 09:42:000.2[facility] HermannHEMATOLOGY 2020-08-12 09:42:000.2[facility] SuptwqwHZCKXCFDAR2242-86-04 09:42:0071.0[facility] QclhnfzJFKCVLAQJM1483-98-20 09:42:002.0[facility] TbqukkhHSSKSOCXZB8283-97-77 09:42:0018.0[facility] ClhngklLOSRIGNLXB7169-96-20 09:42:003.0[facility] [place] LEJZQIRXNA0019-38-58 09:42:003.0[facility] XqxsbpzXVWAWGZNZP5541-52-13 09:42:002.0 [facility] GgbenwnFBLTBQVIPT5785-26-99 09:42:001.0[facility] HermannHEMATOLOGY 2020-08-12 09:42:000.0[facility] DbssgpaQUJHLKCQHE9876-98-71 09:42:001[facility] VzctrksXYMNQEFWRC1005-93-00 09:42:00Normal (08/12/20 3:42 AM)[facility] [place] AGTFVTWITP9604-42-81 09:42:00Normal (08/12/20 3:42 AM)[facility]annHEMATOLOGY 2020-08-12 09:42:00 Test Item Value Reference Range Interpretation Comments Tot Cell Ct (test code = Tot Cell Ct) 100 1 [facility] OoiyulmTSEFTIBAVQ8543-61-94 09:42:00Moderate *ABN*(08/12/20 3:42 AM) [facility] OamwisvZPHNWTHLTP1899-01-80 09:42:006.4[facility] HermannHEMATOLOGY 2020-08-12 09:42:003.02[facility] MwzdszqLWVAYZDTEJ1868-46-25 09:42:009.0[facility] HbqmkdpSLMGAYUVTH6418-83-60 09:42:0025.9[facility] KnwddwmMUSXWXJGRB8096-06-10 09:42:0085.7[facility] VlqknfkECCPLNWNTJ9980-37-07 09:42:00 Test Item Value Reference Range Interpretation Comments MCH (test code = MCH) 30.0 pg 27.0-31.0 [facility] WbdrfgpXBIAWZHAMM2930-32-26 09:42:0034.9[facility] HermannHEMATOLOGY 2020-08-12 09:42:0014.8[facility] YqfyfgcSGSGPEXSBS5427-30-37 09:42:44125Qhoplukq NsycfrwFOZZFYBHCO7626-66-00 09:42:007.0[facility] HermannCHEM SONYO3463-63-14 09:35:0080[facility] HermannCHEM IDKLO8961-08-26 09:35:0013[facility] HermannCHEM ZUBAQ0552-80-14 09:35:005.51[facility] HermannCHEM BHMGR0428-97-07 09:35:26794 [facility]annCHEM JJJTN6292-84-55 09:35:003.2[facility] HermannCHEM PANEL 2020-08-11 09:35:42734Lyitouwi HermannCHEM DAFZW1886-47-59 09:35:0028[facility] HermannCHEM CMJAD4061-25-20 09:35:008.4[facility] HermannCHEM RXWVO1394-47-55 09:35:0010.2[facility] HermannCHEM EBYBT8320-26-96 09:35:0010[facility] [place] SGDLIGUPAR3848-01-19 09:35:0068.4[facility] UeqlmnvAFKPPOEVGI7863-82-44 09:35:00 17.8[facility] FmncqrlFSVMAWOTVY7417-81-69 09:35:009.3[facility] HermannHEMATOLOGY 2020-08-11 09:35:003.7[facility] ExywxiuEDVCFAJNUG5313-86-96 09:35:000.8[facility] BrfonleFQDYZKVIAI8560-71-66 09:35:004.1[facility] DuekiqaBETFDQYZNQ1261-36-40 09:35:001.1[facility] MrjteziCIJJOLXMZS8114-24-72 09:35:000.6[facility] [place] YNVLIHMCWB8364-11-15 09:35:000.2[facility] NujaqjdCNYJIEJFZB3842-92-70 09:35:006.0 [facility] WfzipkfPKMJAOGJJG4092-58-59 09:35:002.84[facility] HermannHEMATOLOGY 2020-08-11 09:35:008.1[facility] XgudfdxWQUTHLEGLG2212-90-86 09:35:0024.2[facility] CecdylrFVVTXOORXR5099-54-75 09:35:0085.3[facility] ZyqezkdIWMCZTQXLD5849-27-28 09:35:00 Test Item Value Reference Range Interpretation Comments MCH (test code = MCH) 28.7 pg 27.0-31.0 [facility] BznuzauTHOSKZLNEA3894-79-55 09:35:0033.6[facility] HermannHEMATOLOGY 2020-08-11 09:35:0014.5[facility] AqcntnkOBWNZYUKDB8790-00-01 09:35:02542Nsvftexc XdvaqtyACULGMXWLE0637-49-35 09:35:007.4[facility] HermannCHEM YNEDR5929-39-08 09:35:0080[facility] HermannCHEM GPAYM0424-94-79 09:35:0013[facility] HermannCHEM CFAZQ7658-64-91 09:35:005.51[facility] HermannCHEM AZLEN9904-13-59 09:35:59503 [facility]annCHEM SHKKP5216-37-22 09:35:003.2[facility] HermannCHEM PANEL 2020-08-11 09:35:78547Jjljijuy HermannCHEM JHHJS4013-20-33 09:35:0028[facility] HermannCHEM CSUZL4424-79-90 09:35:008.4[facility] HermannCHEM RWKVV6371-62-64 09:35:0010.2[facility] HermannCHEM NXZTN2922-47-39 09:35:0010[facility] [place] WTUZNVTWMX2098-89-60 09:35:0068.4[facility] UvfwxzsFGHRIBGUKR6221-53-77 09:35:00 17.8[facility] CcmjyicKKMNXWNNWA1783-58-74 09:35:009.3[facility] HermannHEMATOLOGY 2020-08-11 09:35:003.7[facility] RadtgrpUYWGRISLRC9770-90-09 09:35:000.8[facility] NwmxmkzNGCWTBDCJI5151-59-15 09:35:004.1[facility] XaqpfauCUNZHRLWHA4007-39-65 09:35:001.1[facility] RpqxztsSJOWFVJFOY5933-53-97 09:35:000.6[facility] [place] TRKRNJDDGT8178-94-72 09:35:000.2[facility] MfmojqfCPOQCICWPZ2254-30-87 09:35:006.0 [facility] UcahtziKWILRXOKGI4339-26-88 09:35:002.84[facility]annHEMATOLOGY 2020-08-11 09:35:008.1[facility] TcxoidvGJAULBZGCW4549-92-22 09:35:0024.2[facility] BoirmnrXCXZVNWLKS6057-18-83 09:35:0085.3[facility] AidzszzHAXZCAXSIQ7026-99-89 09:35:00 Test Item Value Reference Range Interpretation Comments MCH (test code = MCH) 28.7 pg 27.0-31.0 [facility] OjxtdkfYSYQLPSRKH1075-17-97 09:35:0033.6[facility] HermannHEMATOLOGY 2020-08-11 09:35:0014.5[facility] BenzygnTALORXSOFD4794-51-31 09:35:90559Xmjzwuoz MeirsizVDLQCEGYAP9418-85-57 09:35:007.4[facility] HermannCHEM XANAC5560-44-05 09:35:0080[facility] HermannCHEM ULTYV4065-88-59 09:35:0013[facility]annCHEM YVEHQ2867-41-41 09:35:005.51[facility] HermannCHEM YWCTB4435-09-44 09:35:35735 [facility]annCHEM SODLN9122-66-77 09:35:003.2[facility] HermannCHEM PANEL 2020-08-11 09:35:20018Ncjlkvuw HermannCHEM KSLSL4805-03-65 09:35:0028[facility] HermannCHEM WVZNO2630-28-46 09:35:008.4[facility] HermannCHEM NFELP3017-19-24 09:35:0010.2[facility] HermannCHEM OPKCR7111-14-63 09:35:0010[facility] [place] VYOJEPODVZ6492-45-71 09:35:0068.4[facility] ZeyntkySDTJNLMIDG9449-57-96 09:35:00 17.8[facility] KjqxokcDYEVVOPLYB4714-16-96 09:35:009.3[facility] HermannHEMATOLOGY 2020-08-11 09:35:003.7[facility] ZtodifiRGYKAXYUXN3958-44-90 09:35:000.8[facility] ZeuaiccRTKEZAEYXL9684-28-77 09:35:004.1[facility] WsromvzTYBQGNLANZ4526-50-11 09:35:001.1[facility] QxiukebSXBHQVMRYB3166-97-93 09:35:000.6[facility] [place] PFHWMAMEIR2826-49-63 09:35:000.2[facility] BegrrolNMOBPXHQAF7972-31-29 09:35:006.0 [facility] DbxhoqhCFPBKJWDEE5645-31-86 09:35:002.84[facility] HermannHEMATOLOGY 2020-08-11 09:35:008.1[facility] ThhnxslQXIUTBUCZT3798-29-10 09:35:0024.2[facility] PvfssdpFHXQVJUSSZ1712-05-48 09:35:0085.3[facility] IeztltsCLCJDVTRQI5230-68-55 09:35:00 Test Item Value Reference Range Interpretation Comments MCH (test code = MCH) 28.7 pg 27.0-31.0 [facility] DqinmtxBAPKNNITJN6749-34-61 09:35:0033.6[facility] HermannHEMATOLOGY 2020-08-11 09:35:0014.5[facility] AziqnmiCPRRIZJIML1816-02-59 09:35:25839Btpimkvf PnofzzePXRHTJOHGR2095-32-02 09:35:007.4[facility] HermannCHEM KKYZZ9057-10-30 09:39:87135Xhplicbx HermannCHEM DXXIL9347-03-89 09:39:0021[facility] HermannCHEM FWKQJ6959-82-36 09:39:006.77[facility] HermannCHEM EZTOJ7255-55-19 09:39:91904 [facility]annCHEM WTMBE1909-36-56 09:39:003.5[facility] HermannCHEM PANEL 2020-08-10 09:39:11766Gjpsfvuf HermannCHEM TVKEA9936-79-35 09:39:0029[facility] HermannCHEM UFNGV4309-08-68 09:39:009.5[facility] HermannCHEM VXTSH5821-14-53 09:39:007.9[facility] HermannCHEM YJJUN9620-49-02 09:39:008[facility] [place] XDSDOMPOYW4414-76-58 09:39:003.8[facility] FslpjfeGSPJGPRDCD0106-70-45 09:39:001.1 [facility] ZinscpvTJQWTEQOHT0005-87-36 09:39:000.2[facility]annHEMATOLOGY 2020-08-10 09:39:000.4[facility] RpwspdeZCGWIQEPXX8036-16-59 09:39:0064.0[facility] JzcljszEBSCACFVSV3656-88-32 09:39:002.0[facility] SlsnmsqHPJYJJUFLX6257-72-50 09:39:0020.0[facility] WrgcheuGIPXFBTJPT3025-78-03 09:39:004.0[facility] [place] SALXPREZWJ3742-87-53 09:39:007.0[facility] VciobevNMVEYJBTPQ9824-54-31 09:39:003.0 [facility] CkvjrjyIQEEBVCHVW8432-79-09 09:39:000.0[facility]annHEMATOLOGY 2020-08-10 09:39:001[facility] ZdionqhYOESGIQWZH4740-87-95 09:39:00Normal (08/10/20 3:39 AM)[facility] FdenamtJSRHRTUHNE4372-14-30 09:39:00Normal (08/10/20 3:39 AM) [facility] UjecezyDMOVJFKSMN3315-79-08 09:39:005.7[facility]annHEMATOLOGY 2020-08-10 09:39:002.61[facility] OvydidyCOJMDSIWNT9997-00-48 09:39:007.5[facility] VferucwUIEQSNROCX9131-54-94 09:39:0022.3[facility] AuusjvnJQIXMUJSLS6525-02-03 09:39:0085.6[facility] JkiahsvHHCPLSXKDG3712-11-65 09:39:00 Test Item Value Reference Range Interpretation Comments MCH (test code = MCH) 28.8 pg 27.0-31.0 [facility] EahsahqYOFGWCWZNN2430-21-84 09:39:0033.6[facility]annHEMATOLOGY 2020-08-10 09:39:0013.9[facility] VvrwtkhBRWXSHOUUD4426-93-44 09:39:29652Dhiofmsw EmihtbcEMJKWSIFKJ6479-96-79 09:39:007.5[facility] HermannCHEM AXZWZ5544-77-73 09:39:09740Zaclusjo HermannCHEM XUZJC5339-38-55 09:39:0021[facility]annCHEM QDDQF8508-30-15 09:39:006.77[facility]annCHEM JHEXV5542-77-97 09:39:27883 [facility]annCHEM AJATC1192-58-33 09:39:003.5[facility] HermannCHEM PANEL 2020-08-10 09:39:64001Kylhbgyq HermannCHEM JHAWQ3175-31-93 09:39:0029[facility]annCHEM INFLZ6025-99-19 09:39:009.5[facility]annCHEM EBMQU5049-01-56 09:39:007.9[facility]annCHEM NPBAX9960-47-42 09:39:008[facility] [place] OSCLKOHXJQ3324-18-48 09:39:003.8[facility] EqzmhypFVGHUEEBIE9280-00-72 09:39:001.1 [facility] SqlcxigUDPOFRAFMU2117-87-79 09:39:000.2[facility]annHEMATOLOGY 2020-08-10 09:39:000.4[facility] QqilqmuFMYNEFMAUR5508-64-03 09:39:0064.0[facility] VamghyrYKIJFACZFQ4673-05-17 09:39:002.0[facility] HwgooogQJDOAFZOSG3039-06-61 09:39:0020.0[facility] LseimxsYGYNRYECUQ0683-78-27 09:39:004.0[facility] [place] ABYRPSSZEQ4651-15-12 09:39:007.0[facility] VplyarxCGXVQYDTJW1884-37-67 09:39:003.0 [facility] DuavxjuXVEZCFJBLE7063-00-24 09:39:000.0[facility]annHEMATOLOGY 2020-08-10 09:39:001[facility] ZnvwsvkRTHYFTROLN6173-49-53 09:39:00Normal (08/10/20 3:39 AM)[facility] KjcvzvhEXHAVGFZMM4399-33-09 09:39:00Normal (08/10/20 3:39 AM) [facility] UedvaywZDDXEXMWLN7691-33-62 09:39:005.7[facility]annHEMATOLOGY 2020-08-10 09:39:002.61[facility] SapzbgpIEFFDOPYDK7872-60-86 09:39:007.5[facility] DnlxkcbNOLYIRWTXL8540-85-66 09:39:0022.3[facility] KgcmkzqYGZWICPRQS3262-43-06 09:39:0085.6[facility] XeaxoqkRXXWNNQEEP0793-67-25 09:39:00 Test Item Value Reference Range Interpretation Comments MCH (test code = MCH) 28.8 pg 27.0-31.0 [facility] VwwtdzaMQLMRFWKUE8356-26-05 09:39:0033.6[facility]annHEMATOLOGY 2020-08-10 09:39:0013.9[facility] YzkamxgIIKWUARBJH6837-95-89 09:39:73702Eecposzl AnfpjprSYUOWPXYCV8567-78-17 09:39:007.5[facility] HermannCHEM BHGBK1806-17-56 09:39:36604Dezpxgly HermannCHEM YDMOL6199-49-62 09:39:0021[facility] HermannCHEM VLZBO0517-31-08 09:39:006.77[facility]annCHEM RGHNN7893-08-12 09:39:09970 [facility]annCHEM BESAT3101-81-42 09:39:003.5[facility] HermannCHEM PANEL 2020-08-10 09:39:83366Scjtnsbg HermannCHEM HGAQM6467-76-27 09:39:0029[facility]annCHEM QAWTN1233-38-99 09:39:009.5[facility] HermannCHEM NYECI8688-89-35 09:39:007.9[facility]annCHEM MBBQT4642-73-99 09:39:008[facility] [place] EBIOWURIFC9608-15-93 09:39:003.8[facility] DsizaelISNXCXKSPC7329-15-00 09:39:001.1 [facility] LsmvhouNOHOQAKSYK3452-26-41 09:39:000.2[facility]annHEMATOLOGY 2020-08-10 09:39:000.4[facility] NtxpguxOPRUJZJQJN1492-47-44 09:39:0064.0[facility] NdsqcksYGTMHVHMFJ6798-80-97 09:39:002.0[facility] MybmnsmAOKVPJICNQ7641-59-73 09:39:0020.0[facility] XctkbauAQHYWAKKMV8695-93-68 09:39:004.0[facility] [place] DRGVBADWFT8282-77-58 09:39:007.0[facility] HlnrtwlKZZMDIMWRN6373-73-25 09:39:003.0 [facility] MbsmlgvKVXFETEJWB5684-37-15 09:39:000.0[facility]HEMATOLOGY 2020-08-10 09:39:001[facility] DqhpipbSWMVSOIGLC0684-69-23 09:39:00Normal (08/10/20 3:39 AM)[facility] OpihjekQQCABUDZDU3845-53-15 09:39:00Normal (08/10/20 3:39 AM) [facility] LovhtkbJMIOMMEZBB3262-15-81 09:39:005.7[facility]annHEMATOLOGY 2020-08-10 09:39:002.61[facility] JxjugeoASVFBXGLPL0178-26-64 09:39:007.5[facility] OqwastzPVQIEWRMSI9861-12-93 09:39:0022.3[facility] EiaruirYENUDRIQPB2716-24-67 09:39:0085.6[facility] FxvdblrLUABWYJUKK6201-10-77 09:39:00 Test Item Value Reference Range Interpretation Comments MCH (test code = MCH) 28.8 pg 27.0-31.0 [facility] RtgcchpFTGUFHLTMG7417-00-51 09:39:0033.6[facility]annHEMATOLOGY 2020-08-10 09:39:0013.9[facility] EkygdehKCDCBYOUEY7364-58-89 09:39:04574Xigxtuxf VgrkbefAXQZYTKMNP1099-61-43 09:39:007.5[facility] KgqzkyuENUZDTOECY9355-41-81 16:40:000.6[facility] IyygwjlKQEFBGYSHV9453-14-24 16:40:005.7[facility] FDLWYTSRWZ6516-49-63 16:40:002.82[facility] XdtvggxCJDKMWGTCR6121-03-61 16:40:00 8.0[facility] EqnwopoRTHEAHTHSK2897-46-62 16:40:0024.2[facility]annHEMATOLOGY 2020-08-09 16:40:0085.8[facility] DrjrbbaGHRPBMPVYB4850-16-36 16:40:00 Test Item Value Reference Range Interpretation Comments MCH (test code = MCH) 28.6 pg 27.0-31.0 [facility] IrglvexCYTRHYXDVE8053-23-10 16:40:0033.3[facility]annHEMATOLOGY 2020-08-09 16:40:0014.1[facility] EoxhsnkZLHNPRUJCS7621-31-63 16:40:68336Pampqqhm FcfbmkyHHQWWVUSPD1912-70-59 16:40:007.2[facility] ZcdyoosGKJLZBFMHE2121-94-00 16:40:0072.6[facility] EfbrlklIOPGCJWBCT2320-75-70 16:40:0014.6[facility] CTYWLKPOZH6358-35-03 16:40:007.8[facility] TsaiymeKSEVXUUQFJ7844-08-60 16:40:004.4 [facility] ZcffeshSCDVILGPVN1813-97-96 16:40:004.2[facility]annHEMATOLOGY 2020-08-09 16:40:000.8[facility] AezsvwcDEPDCXHHXZ8446-64-76 16:40:000.4[facility] HfhtqpqDFRUSSZMHU0926-89-85 16:40:000.2[facility] XkrqglxUOYSCWWLYN1026-92-52 16:40:007[facility] PhfeskjLXNKCRHVCD9093-93-54 16:40:000.6[facility] IKIWRMCFNB8394-13-37 16:40:005.7[facility] RynmqwkAVMDLXQLAM4552-68-09 16:40:00 2.82[facility] LuifrtaFXIYDZATGB6413-79-28 16:40:008.0[facility]annHEMATOLOGY 2020-08-09 16:40:0024.2[facility] JcfovylAUOLRFQMWV5586-33-36 16:40:0085.8[facility] UauthtzWLTUPHVBBM4036-12-32 16:40:00 Test Item Value Reference Range Interpretation Comments MCH (test code = MCH) 28.6 pg 27.0-31.0 [facility] TuyvqciEELDRDBYZH1818-53-81 16:40:0033.3[facility]annHEMATOLOGY 2020-08-09 16:40:0014.1[facility] BezcsbzKQUABPYGNR1308-23-16 16:40:92583Pdnnmsdr OxleettRVEXSTPSKX6468-90-35 16:40:007.2[facility] BanmfqaKKOKTICIUI1516-93-59 16:40:0072.6[facility] TplklobPETIAOOWIE5721-54-08 16:40:0014.6[facility] MFDXODIDGC7215-11-71 16:40:007.8[facility] GssihfkLFMQLCENBO4556-11-83 16:40:004.4 [facility] VsgyulqBZTSJGLRNH4394-69-28 16:40:004.2[facility]annHEMATOLOGY 2020-08-09 16:40:000.8[facility] BkjpatjSNABZBJLPP1473-07-66 16:40:000.4[facility] SzvloheMGWDLMXDDM7440-99-39 16:40:000.2[facility] UoxlndhAZLWEZCHSZ8299-36-86 16:40:007[facility] HqwspziSBETWNKTYV3650-24-72 16:40:000.6[facility] MJKMJUQBGI1028-07-80 16:40:005.7[facility] GhnadcrUXPKUJXUSV2015-33-94 16:40:00 2.82[facility] WietvucQDOYRXLIZC0326-86-67 16:40:008.0[facility]annHEMATOLOGY 2020-08-09 16:40:0024.2[facility] OwoqdbkPUBRUVPAZY0116-75-83 16:40:0085.8[facility] ZmsvqjeZEMIZGBKRF4453-48-36 16:40:00 Test Item Value Reference Range Interpretation Comments MCH (test code = MCH) 28.6 pg 27.0-31.0 [facility] OjumvtkLKGQRAAXUA2220-14-91 16:40:0033.3[facility]annHEMATOLOGY 2020-08-09 16:40:0014.1[facility] ItlqxrfPLBCLYUXSX8392-12-98 16:40:51879Wracthbv VmralmwTMDRMUHOQN4064-36-44 16:40:007.2[facility] XfozhqzPFUXCTQAYG2578-96-15 16:40:0072.6[facility] CeexvmpRVKDGOOFUM0429-91-58 16:40:0014.6[facility] RBJQVDVSVE1008-73-27 16:40:007.8[facility] FpbpfjgDZPJFIKALM3071-20-08 16:40:004.4 [facility] YgvqbrjVSROAHSIWD3930-97-45 16:40:004.2[facility]annHEMATOLOGY 2020-08-09 16:40:000.8[facility] ZrnalwsEWWFUBWLYG9917-46-86 16:40:000.4[facility] ThrfieoOUCULWTQPP5099-79-53 16:40:000.2[facility] ShjsnseHWCUDGNSMW0574-69-03 16:40:007[facility]annCHEM ISSNL9897-02-17 14:48:004.2[facility]annCHEM JFYUV2560-26-34 14:48:001.3[facility]annCHEM XSTHG0317-53-49 14:48:0014 [facility]annCHEM QGUJI3091-15-02 14:48:0017[facility]annCHEM PANEL 2020-08-09 14:48:0092[facility]annCHEM TJTFV8063-46-09 14:48:000.5[facility]annCHEM CAHLX9615-54-12 14:48:00 Test Item Value Reference Range Interpretation Comments B/C Ratio (test code = B/C Ratio) 3 1 6-25 [facility]annCHEM IUSQS9752-05-02 14:48:002.9[facility]annCHEM PANEL 2020-08-09 14:48:00 Test Item Value Reference Range Interpretation Comments A/G Ratio (test code = A/G Ratio) 0.4 1 0.7-1.6 [facility] HermannCHEM MRXTQ5923-50-13 14:48:001.8[facility]annCHEM PANEL 2020-08-09 14:48:0070[facility]annCHEM LMRSF4843-75-24 14:48:0025[facility]annCHEM RPVFD7788-15-40 14:48:008.85[facility] HermannCHEM UAWTX1847-79-82 14:48:95762Tfrbvtkj HermannCHEM XCBCF5930-02-60 14:48:004.0[facility]annCHEM RLDRR2922-68-99 14:48:92144Bnaompxd HermannCHEM DTNAL7479-39-31 14:48:0030 [facility]annCHEM ZFCDW7888-11-86 14:48:007.5[facility]annCHEM PANEL 2020-08-09 14:48:0013.0[facility] HermannCHEM HGGQE9303-76-07 14:48:006[facility] HermannCHEM EVKMR1587-83-09 14:48:004.2[facility]annCHEM UOTSB5833-71-46 14:48:001.3[facility]annCHEM DWCUH7393-14-52 14:48:0014[facility]annCHEM QYEEK6404-95-28 14:48:0017[facility]annCHEM SXKCG3275-96-80 14:48:0092 [facility]CHE[facility] XLFIF2581-60-18 14:48:000.5[facility]annCHEM PANEL 2020-08-09 14:48:00 Test Item Value Reference Range Interpretation Comments B/C Ratio (test code = B/C Ratio) 3 04-02 [facility]CHE[facility] ZCUYR0089-55-39 14:48:002.9[facility]annCHEM PANEL 2020-08-09 14:48:00 Test Item Value Reference Range Interpretation Comments A/G Ratio (test code = A/G Ratio) 0.4 1 0.7-1.6 [facility]annCHEM QMTUG4362-51-35 14:48:001.8[facility]annCHEM PANEL 2020-08-09 14:48:0070[facility]annCHEM ESYIB9666-63-70 14:48:0025[facility]annCHEM TCYIE6627-15-26 14:48:008.85[facility]annCHEM WVJOF6285-42-24 14:48:89632Kzmvdptc HermannCHEM CWXVY7311-15-04 14:48:004.0[facility]annCHEM KMLIS8907-74-02 14:48:14060Dngpbxfp HermannCHEM IIXTR0511-61-26 14:48:0030 [facility]annCHE[facility] UWYBL3700-12-10 14:48:007.5[facility]annCHEM PANEL 2020-08-09 14:48:0013.0[facility]annCHEM ZAUDS2294-34-67 14:48:006[facility]annCHEM JUSLX5242-07-58 14:48:004.2[facility]annCHEM VHYLH4822-48-44 14:48:001.3[facility]annCHEM ORQCL5487-72-49 14:48:0014[facility]annCHEM GPEMR2136-11-66 14:48:0017[facility]annCHE[facility] SFYRX6749-82-53 14:48:0092 [facility]CHE[facility] GRGYU3792-92-46 14:48:000.5[facility]annCHEM PANEL 2020-08-09 14:48:00 Test Item Value Reference Range Interpretation Comments B/C Ratio (test code = B/C Ratio) 3 1 6-25 [facility]annCHEM PKNYG9969-04-06 14:48:002.9[facility]annCHEM PANEL 2020-08-09 14:48:00 Test Item Value Reference Range Interpretation Comments A/G Ratio (test code = A/G Ratio) 0.4 1 0.7-1.6 [facility] YDGGA1967-73-05 14:48:001.8[facility]annCHEM PANEL 2020-08-09 14:48:0070[facility]annCHEM UKRSR4869-25-10 14:48:0025[facility]annCHEM RNSKS0475-11-00 14:48:008.85[facility]annCHEM IWDQM7752-88-74 14:48:24341Vhprfkgn [facility]annCHEM TDJQQ0432-39-41 14:48:004.0[facility]annCHEM UIFOY4742-88-05 14:48:53230Pkqfhqca HermannCHEM ONJMQ0069-31-13 14:48:0030 [facility]annCHE[facility] QQIPK2199-13-30 14:48:007.5[facility]annCHEM PANEL 2020-08-09 14:48:0013.0[facility]annCHEM ZIXUD5856-95-50 14:48:006[facility] TwzepdgVXHZHDBDSI7068-15-69 10:41:007.6[facility] EzdbxjuERZGXUVFNL0679-26-51 10:41:007.6[facility] WboxtekBIZKUJMEIL8162-17-91 10:41:007.6[facility] MJUPYMZGMF5936-95-61 02:33:007.9[facility] KtacrdhKPPOQHXDEY2574-85-92 02:33:007.9 [facility] RsvupevFRNVZMAKOE4237-04-51 02:33:007.9[facility] HermannHEMATOLOGY 2020-08-08 20:10:0023.0[facility] KzivgfyCWFDUGAZSK1243-21-05 20:10:0023.0[facility] TwvntoiGUHELGKKMW4814-02-35 20:10:0023.0[facility]annBODY DDQWYG5803-44-52 19:15:00Light Yellow (08/08/20 2:15 PM)[facility] DDZJNP0329-74-54 19:15:00Slight Cloudy (08/08/20 2:15 PM)[facility] XEKMJL8958-08-31 19:15:55209Jmbfkjld HermannBODY ADNMPY8387-02-22 19:15:45190Ninbxvyq [facility]annB[facility] UENQQX5275-56-95 19:15:0018[facility] RQZCGV2181-32-16 19:15:0010 [facility] ETRHOR1954-00-96 19:15:0044[facility] FLUIDS 2020-08-08 19:15:0026[facility] GHLSDH8123-80-08 19:15:002[facility] XIPXYT4246-52-78 19:15:00Abdomn (08/08/20 2:15 PM)[facility] MAGQIY8160-92-89 19:15:00Light Yellow (08/08/20 2:15 PM)[facility]ODY KZAUTW6644-39-27 19:15:00Slight Cloudy (08/08/20 2:15 PM)[facility] BODY SKMKKJ3314-82-88 19:15:15039Ixfwihma HermannBODY RQYGRK3322-67-07 19:15:00 512[facility] TVFBVI7083-15-28 19:15:0018[facility] FLUIDS 2020-08-08 19:15:0010[facility] GFYZJM2796-28-99 19:15:0044[facility] DAOFEV3687-77-25 19:15:0026[facility] GDARRM0595-21-64 19:15:002[facility] IOHYDF3974-38-08 19:15:00Abdomn (08/08/20 2:15 PM) [facility] PKEUNU0607-47-17 19:15:00Light Yellow (08/08/20 2:15 PM) [facility] JSXLTE3270-88-75 19:15:00Slight Cloudy (08/08/20 2:15 PM) [facility] LEIELJ2352-38-49 19:15:77314Dbbwqhje [facility] FLUIDS 2020-08-08 19:15:48065Xnjwzwih [facility]annB[facility] YSVKAW9586-08-99 19:15:0018[facility] WCWLPT7852-09-28 19:15:0010[facility] EAAVFJ2629-71-88 19:15:0044[facility] NTUSQI5230-40-75 19:15:0026[facility] EYMESJ5965-57-43 19:15:002[facility] LKTCUZ6036-63-57 19:15:00Abdomn (08/08/20 2:15 PM)[facility] ZCENJVP8222-09-33 15:28:09Product available 4(08/08/20 10:28 AM)[facility] QDIYVWK6040-61-87 15:28:09Product available 4(08/08/20 10:28 AM)[facility] RESULTS 2020-08-08 15:28:09Product available 4(08/08/20 10:28 AM)[facility] PCDRIEX3714-23-25 14:41:00Negative (08/08/20 9:41 AM)[facility] XWXEMZWCSY0157-92-69 14:41:001.0[facility] VyahaefEVCSVJJSGN5024-04-32 14:41:009.0 [facility]wallNnluvmqGDPBNBIBGH6388-59-94 14:41:00See Note (08/08/20 9:41 AM)[facility] ZqxydjdZGQAEHZSJT4985-74-35 14:41:00Normal (08/08/20 9:41 AM)[facility] ZKYICWKVOH6240-85-03 14:41:001+ *ABN*(08/08/20 9:41 AM)[facility] GZLAMZYUMV4611-41-47 14:41:001+ *ABN*(08/08/20 9:41 AM)[facility] BGQEBLODNN7289-52-91 14:41:001+ (08/08/20 9:41 AM)[facility]annHEMATOLOGY 2020-08-08 14:41:00Moderate *ABN*(08/08/20 9:41 AM)[facility]annHEMATOLOGY 2020-08-08 14:41:006.0[facility] ZqlnraaXGCEYWMPPG4287-85-89 14:41:002.32[facility] PiimvfzYDXHCMRZPC9789-36-17 14:41:0019.8[facility] BmznjetEUGVJUMYGG4557-36-02 14:41:0085.6[facility] JpngiugZRMJKWYCWG0681-93-03 14:41:00 Test Item Value Reference Range Interpretation Comments MCH (test code = MCH) 29.0 pg 27.0-31.0 [facility] PtttgkvFWGOKQQEDU9002-27-87 14:41:0033.8[facility]annHEMATOLOGY 2020-08-08 14:41:0013.9[facility] YkhmbsaSPOYDRGYYN6715-40-36 14:41:12888Tmksdxea QjjzypjRHEWDAWXWC4829-45-68 14:41:006.8[facility] FroyozmJXDEHXBIFM6898-46-20 14:41:004.1[facility] MtihgkvDCRRDJXNOO0938-24-13 14:41:001.4[facility] LDGEEVQXLR2360-90-93 14:41:000.1[facility] HpjvuupWAODZETBPF4232-97-14 14:41:000.4 [facility] KuajggfSQDNPGPFNZ2946-15-45 14:41:0068.0[facility] HermannHEMATOLOGY 2020-08-08 14:41:0014.0[facility] UygbwufVSXYIIXNOU9951-76-55 14:41:002.0[facility] ExkuddwWBFXVSRHHW3498-18-81 14:41:006.0[facility]BL[facility] BANK RESULTS 2020-08-08 14:41:00Negative (08/08/20 9:41 AM)[facility]annHEMATOLOGY 2020-08-08 14:41:001.0[facility] HkiohyuHMXQQHMFBZ0110-98-40 14:41:009.0[facility] FeqjssvWFDVYIIFBF5416-40-71 14:41:00See Note (08/08/20 9:41 AM)[facility] EMLTSADGRL1324-50-91 14:41:00Normal (08/08/20 9:41 AM)[facility]annHEMATOLOGY 2020-08-08 14:41:001+ *ABN*(08/08/20 9:41 AM)[facility]annHEMATOLOGY 2020-08-08 14:41:001+ *ABN*(08/08/20 9:41 AM)[facility]annHEMATOLOGY 2020-08-08 14:41:001+ (08/08/20 9:41 AM)[facility] ZjmvmasBWRYVEJMTD5394-54-04 14:41:00Moderate *ABN*(08/08/20 9:41 AM)[facility] BzhefskLPIHUINBLC2618-21-11 14:41:006.0[facility] ZqglcwbCMTDGBDBPC7020-37-00 14:41:002.32[facility] VDFZPKETQA0335-85-87 14:41:0019.8[facility] GrmdnynPSCKOSKTEM2365-28-13 14:41:00 85.6[facility] FreqygsVIETFFVCLX8110-91-83 14:41:00 Test Item Value Reference Range Interpretation Comments MCH (test code = MCH) 29.0 pg 27.0-31.0 [facility] CbxgsxnZLTEAEPLEL6893-10-43 14:41:0033.8[facility] HermannHEMATOLOGY 2020-08-08 14:41:0013.9[facility] XvqmzpuNNMOGDEJXP7151-97-42 14:41:78381Lfhursgw KsxrmltWPAPUYLQPY8330-49-47 14:41:006.8[facility] VdtewbjLROXNTLSMB4580-42-38 14:41:004.1[facility] BgnwlaaMTVCFACNBH6061-88-03 14:41:001.4[facility] HAOKPGEXEL2973-03-32 14:41:000.1[facility] AulicpvNWIFASJZZE9475-88-24 14:41:000.4 [facility] WezhwjmKFNUSEFKTD3774-36-40 14:41:0068.0[facility] HermannHEMATOLOGY 2020-08-08 14:41:0014.0[facility] UxrffjaOGWLSVMRAB8368-97-61 14:41:002.0[facility] QamjybkTAQYACXEDR5942-52-15 14:41:006.0[facility]annBL[facility]OD BANK RESULTS 2020-08-08 14:41:00Negative (08/08/20 9:41 AM)[facility]annHEMATOLOGY 2020-08-08 14:41:001.0[facility] LyamcfiPQTQQZAJQU1139-13-10 14:41:009.0[facility] HxgrrywGJFDDKSFIV1014-98-88 14:41:00See Note (08/08/20 9:41 AM)[facility] VVKOAMGIEN7921-55-33 14:41:00Normal (08/08/20 9:41 AM)[facility]annHEMATOLOGY 2020-08-08 14:41:001+ *ABN*(08/08/20 9:41 AM)[facility]annHEMATOLOGY 2020-08-08 14:41:001+ *ABN*(08/08/20 9:41 AM)[facility]annHEMATOLOGY 2020-08-08 14:41:001+ (08/08/20 9:41 AM)[facility] ZfoosplGNFUUJVQZD1869-78-75 14:41:00Moderate *ABN*(08/08/20 9:41 AM)[facility] NouqkkjBFFTCOFAMF4077-92-85 14:41:006.0[facility] NaigprgFLSMIRLSOD6185-47-29 14:41:002.32[facility] HRGBJZCLUN2709-12-86 14:41:0019.8[facility] AeikhiyCEZVSLHEXK3674-90-65 14:41:00 85.6[facility] LxvrqshTJNHDLEYWI0964-72-90 14:41:00 Test Item Value Reference Range Interpretation Comments MCH (test code = MCH) 29.0 pg 27.0-31.0 [facility] PerrdbxKGKKQQVYTJ2184-30-26 14:41:0033.8[facility] HermannHEMATOLOGY 2020-08-08 14:41:0013.9[facility] HexksozZSHDIGJEBV3656-90-12 14:41:45157Rpgsxfyx LsvulidOCMQWNANPD5076-58-97 14:41:006.8[facility] JjltadsRKDAARJSLE0935-83-32 14:41:004.1[facility] QfwxbqgKKRUSKPYGC3992-14-30 14:41:001.4[facility] WTHBWSULBU6718-50-88 14:41:000.1[facility] VyxxpsbZYMEEIMZNR2970-70-56 14:41:000.4 [facility] LfmnuskYQEQTZLTWZ0801-18-88 14:41:0068.0[facility] HermannHEMATOLOGY 2020-08-08 14:41:0014.0[facility] ZcmjshyAADAWCULBG3258-82-61 14:41:002.0[facility] MwtnlxhBBFALLAZPS5590-71-50 14:41:006.0[facility] HermannCHEM HGVHR2262-12-34 08:42:004.4[facility] HermannCHEM HXHDK6421-48-72 08:42:0080[facility]annCHEM YKYWX1488-24-30 08:42:0034[facility]annCHEM LSDYJ5716-39-12 08:42:0010.90 [facility]annCHEM VHRQV4538-37-22 08:42:70024Jwftanko HermannCHEM PANEL 2020-08-08 08:42:003.[facility] HermannCHEM KMWXK5791-47-10 08:42:0099[facility]annCHEM LTIYY6796-07-94 08:42:0033[facility]annCHEM MZNIF6775-09-23 08:42:008.1[facility] HermannCHEM BRUVU4226-12-92 08:42:009.[facility] HermannCHEM EUCYR8853-79-03 08:42:005[facility] FdifpmrSDKTKKUWRC5327-61-96 08:42:000.6 [facility] RpynckqCVTGUBCEFV0430-72-92 08:42:006.7[facility] HermannHEMATOLOGY 2020-08-08 08:42:002.53[facility] UliighkNWNLAFYQKL7064-29-58 08:42:0084.8[facility] IgytwvwSSKTIZJVCK1949-14-01 08:42:00 Test Item Value Reference Range Interpretation Comments MCH (test code = MCH) 28.5 pg 27.0-31.0 [facility] AilwbnzRBVKPZCWCH0087-89-86 08:42:0033.6[facility] HermannHEMATOLOGY 2020-08-08 08:42:0014.4[facility] TflogycGXLMEGKTYH6624-39-73 08:42:00976Whicnjgb VmypodfEKMLIYHGEI8825-40-09 08:42:007.0[facility] WfjhqcjNHEIICZJWO4862-58-37 08:42:0071.1[facility] JzamhnkMRXAZLDTZM0999-12-01 08:42:0016.3[facility] JPBXOGWZOQ8484-58-65 08:42:008.0[facility] YmnhxblQYFMMTCRAR6195-33-12 08:42:004.0 [facility] LyhrygoUETTCEUGAA2483-08-34 08:42:004.7[facility] HermannHEMATOLOGY 2020-08-08 08:42:001.1[facility] ThqifhiCJANDYMIWE5499-58-42 08:42:000.5[facility] TycgwpnWURRIZNVDY3750-24-46 08:42:000.3[facility] HermannCHEM KGNMJ9585-14-52 08:42:004.4[facility] HermannCHEM HOFSH7869-86-82 08:42:0080[facility] HermannCHEM AZFOT7345-34-08 08:42:0034[facility] HermannCHEM LPORP6161-65-25 08:42:0010.90 [facility]annCHEM YCOOA7688-36-77 08:42:87522Lpwgkvhn HermannCHEM PANEL 2020-08-08 08:42:003.[facility] HermannCHEM OYBPA9890-08-26 08:42:0099[facility] HermannCHEM IKHCM1755-86-62 08:42:0033[facility] HermannCHEM MQLKA4053-57-53 08:42:008.1[facility] HermannCHEM NXYLI0041-88-59 08:42:009.6[facility] HermannCHEM ZTORW3993-91-41 08:42:005[facility] SugfgobUPDFQQYSSI9569-01-81 08:42:000.6 [facility] SavatktRBBSIURLAZ7288-89-15 08:42:006.7[facility] HermannHEMATOLOGY 2020-08-08 08:42:002.53[facility] HmqevvyEVAIJMVEEX5206-12-66 08:42:0084.8[facility] QdwhuoqWKDVQSGMBB7135-60-46 08:42:00 Test Item Value Reference Range Interpretation Comments MCH (test code = MCH) 28.5 pg 27.0-31.0 [facility] VwirggxRRJMWRCDMI8518-82-05 08:42:0033.6[facility] HermannHEMATOLOGY 2020-08-08 08:42:0014.4[facility] IynqnidOGENSELPLN0571-55-85 08:42:54690Uquifqxx OnekyhiYVYJCHYZNH1341-26-92 08:42:007.0[facility] ZaedxsuTTKDPTJECY0102-48-92 08:42:0071.1[facility] KhipghfXVBXLRRDST3639-51-11 08:42:0016.3[facility] HVLKEGCKRH6150-23-08 08:42:008.0[facility] GualzxpIQAPXICOHT2771-03-36 08:42:004.0 [facility] PndophtQPSFESOWBG5507-78-56 08:42:004.7[facility] HermannHEMATOLOGY 2020-08-08 08:42:001.1[facility] CzlypkuRMCEDBVPVL4667-11-04 08:42:000.5[facility] XwjpobkGFQHWGGQPD3044-04-93 08:42:000.3[facility] HermannCHEM IGGDP5084-28-44 08:42:004.4[facility] HermannCHEM AIDBT1324-08-18 08:42:0080[facility] HermannCHEM MYIHW4780-08-02 08:42:0034[facility] HermannCHEM ZZARC4730-34-49 08:42:0010.90 [facility]annCHEM QOCZM7167-73-36 08:42:20456Kgfgbnvz HermannCHEM PANEL 2020-08-08 08:42:003.[facility] HermannCHEM UPCRK2634-82-80 08:42:0099[facility] HermannCHEM KKZJR5847-46-64 08:42:0033[facility] HermannCHEM AOKDT8331-69-53 08:42:008.1[facility] HermannCHEM UTVCX1066-30-38 08:42:009.[facility] HermannCHEM DEPVL7671-27-66 08:42:005[facility] SefnvgkHGELPJWCWU1837-50-21 08:42:000.6 [facility] YajidaqYBVFVGQFGY7237-49-18 08:42:006.7[facility] HermannHEMATOLOGY 2020-08-08 08:42:002.53[facility] NsfkiqcXHMPPWSWDC1740-80-03 08:42:0084.8[facility] PjoggxaGSREBVBOYQ9592-01-12 08:42:00 Test Item Value Reference Range Interpretation Comments MCH (test code = MCH) 28.5 pg 27.0-31.0 [facility] LmbdscrODRWCTVZBW2148-12-64 08:42:0033.6[facility] HermannHEMATOLOGY 2020-08-08 08:42:0014.4[facility] OymilpqKHSEHGUPDJ3307-22-50 08:42:66295Ajcdelts HxivryvTRCAHMPFOT5835-05-86 08:42:007.0[facility] MuimowaSNJZSMDDLY7130-04-29 08:42:0071.1[facility] EjybpjuRYRJOUKBFV7973-61-03 08:42:0016.3[facility] PTUDJEXWPY7554-78-44 08:42:008.0[facility] AibgzftEXXLMHPWTB7129-13-29 08:42:004.0 [facility] EfsodddTFFJDPKBMV6451-97-22 08:42:004.7[facility] HermannHEMATOLOGY 2020-08-08 08:42:001.1[facility] TqnepdsENBFJDXQYO7200-85-75 08:42:000.5[facility] MspiddpNSNUEBNUAA8654-68-36 08:42:000.3[facility] ZoslsqdOIRWHKSAAJ9641-88-25 02:01:00 Test Item Value Reference Range Interpretation Comments PT (test code = PT) 13.2 s 12.0-14.7 [facility] IyvchkoNYDBUOCYWP0449-51-57 02:01:00 Test Item Value Reference Range Interpretation Comments INR (test code = INR) 1.00 1 0.85-1.17 [facility] TmspioeHCQMARKMUE4106-83-11 02:01:00 Test Item Value Reference Range Interpretation Comments PTT (test code = PTT) 29.8 s 22.9-35.8 [facility] MxjttueQVQAYPMXMV6246-57-05 02:01:000.6[facility] HermannIMMUNOLOGY 2020-08-08 02:01:00Negative *NA*(08/07/20 9:01 PM)[facility]annHEMATOLOGY 2020-08-08 02:01:00 Test Item Value Reference Range Interpretation Comments PT (test code = PT) 13.2 s 12.0-14.7 [facility]IgksesfYNADSWGXAY8700-74-08 02:01:00 Test Item Value Reference Range Interpretation Comments INR (test code = INR) 1.00 1 0.85-1.17 [facility]GhepiksJCUWWAKMNB3366-79-83 02:01:00 Test Item Value Reference Range Interpretation Comments PTT (test code = PTT) 29.8 s 22.9-35.8 [facility]wallQdfxkacWDRWTOBFAV3883-10-55 02:01:000.[facility] HermannIMMUNOLOGY 2020-08-08 02:01:00Negative *NA*(08/07/20 9:01 PM)[facility] 2020-08-08 02:01:00 Test Item Value Reference Range Interpretation Comments PT (test code = PT) 13.2 s 12.0-14.7 [facility] CenterSbiqzdrCYOHFUKEWF5388-22-08 02:01:00 Test Item Value Reference Range Interpretation Comments INR (test code = INR) 1.00 1 0.85-1.17 [facility]wallEaxznbvGJLZOWVCLM2964-17-23 02:01:00 Test Item Value Reference Range Interpretation Comments PTT (test code = PTT) 29.8 s 22.9-35.8 [facility]wallUjgyerbEVGFIYFEWM9253-86-82 02:01:000.[facility]annIMMUNOLOGY 2020-08-08 02:01:00Negative *NA*(08/07/20 9:01 PM)[facility] HermannCHEM PANEL 2020-08-07 21:23:0072[facility] HermannCHEM MZFXJ4349-45-93 21:23:0028[facility]annCHEM ASFBJ0308-91-16 21:23:009.63[facility] HermannCHEM SMELO1586-64-49 21:23:42675Jaubbrpi HermannCHEM JICXQ8534-84-72 21:23:003.[facility] HermannCHEM QXPSF3566-44-87 21:23:0099[facility] HermannCHEM JBARC4509-86-71 21:23:0032 [facility]annCHEM IVRHB1940-91-58 21:23:009.6[facility] HermannCHEM PANEL 2020-08-07 21:23:008.3[facility] HermannCHEM GAJUU3215-47-00 21:23:005[facility]annCHEM RTXMX7413-97-94 21:23:0072[facility]annCHEM QQPNK1789-22-92 21:23:0028[facility]annCHEM DBYOY3667-41-72 21:23:009.63[facility]annCHEM TDEAT7026-41-79 21:23:25566Etstvxsm HermannCHEM VUXWN3352-16-10 21:23:003.6 [facility]annCHEM DZINQ6964-83-76 21:23:0099[facility] HermannCHEM PANEL 2020-08-07 21:23:0032[facility] HermannCHEM ACSKH5050-12-02 21:23:009.6[facility]annCHEM IWAPY5433-95-20 21:23:008.3[facility] HermannCHEM CYQKU7449-76-70 21:23:005[facility] HermannCHEM OGEUK6505-05-29 21:23:0072[facility] HermannCHEM POZJB9218-22-96 21:23:0028[facility]annCHEM ICLVE7606-69-59 21:23:009.63 [facility]annCHEM EYGKJ1854-02-94 21:23:47630Bdyzroro HermannCHEM PANEL 2020-08-07 21:23:003.[facility] HermannCHEM IIXMG1511-84-95 21:23:0099[facility] HermannCHEM HSFMV6135-14-44 21:23:0032[facility] HermannCHEM UMEIT9162-41-94 21:23:009.6[facility] HermannCHEM NXLOA7126-04-46 21:23:008.3[facility] HermannCHEM IXDIW3884-00-42 21:23:005[facility] UshihdvLMFLESFJXG5244-92-05 15:21:00Not Detected (08/07/20 10:21 AM)[facility] KqkesxqENERAHDHWB8993-21-67 15:21:00Not Detected (08/07/20 10:21 AM)[facility] RbmcghoASKAZIRXRK1193-27-74 15:21:00Not Detected (08/07/20 10:21 AM)[facility] HermannCARDIAC IARCLQM9069-41-32 08:08:0050 [facility]annCHEM UTUGU2628-25-78 08:08:00 Test Item Value Reference Range Interpretation Comments B/C Ratio (test code = B/C Ratio) 3 1 - [facility]annCHEM YOVBT8179-42-76 08:08:004.5[facility] HermannCHEM PANEL 2020-08-07 08:08:001.4[facility] HermannCHEM GCMUS5672-44-65 08:08:003.1[facility] HermannCHEM LDMVE0557-95-78 08:08:00 Test Item Value Reference Range Interpretation Comments A/G Ratio (test code = A/G Ratio) 0.5 1 0.7-1.6 [facility]annCHEM ZFYUR9946-31-16 08:08:0015[facility] HermannCHEM PANEL 2020-08-07 08:08:0016[facility] HermannCHEM VSHGN2193-77-33 08:08:0082[facility] HermannCHEM LEKME1879-63-57 08:08:000.4[facility] HermannCHEM PDBBX4180-12-46 08:08:001.7[facility] HermannCHEM UYGIY5914-18-74 08:08:003.8[facility] CKKSTYYZEA0110-18-43 08:08:00 Test Item Value Reference Range Interpretation Comments PT (test code = PT) 13.0 s 12.0-14.7 [facility] WrvnbeqXPFFHHHYLA6916-78-33 08:08:00 Test Item Value Reference Range Interpretation Comments INR (test code = INR) 0.98 1 0.85-1.17 [facility] CsxspciTCRYDGEAGE9636-21-49 08:08:00 Test Item Value Reference Range Interpretation Comments PTT (test code = PTT) 30.5 s 22.9-35.8 [facility] LddhnuhQLPKFQLDGA7431-89-77 08:08:000.1[facility] HermannCARDIAC ENZYMES 2020-08-07 08:08:0050[facility]annCHEM CDVUD0885-37-71 08:08:00 Test Item Value Reference Range Interpretation Comments B/C Ratio (test code = B/C Ratio) 3 1 - [facility]annCHEM [id number] 08:08:004.5[facility]annCHEM PANEL 2020-08-07 08:08:001.4[facility]annCHEM FNAIS2047-75-84 08:08:003.1[facility]annCHEM BSUPG2262-32-86 08:08:00 Test Item Value Reference Range Interpretation Comments A/G Ratio (test code = A/G Ratio) 0.5 1 0.7-1.6 [facility]annCHE[facility] [id number] 08:08:0015[facility]annCHEM PANEL 2020-08-07 08:08:0016[facility]annCHE[facility] HDFQM1608-73-16 08:08:0082[facility]annCHE[facility] YDUQZ1140-41-22 08:08:000.4[facility]annCHE[facility] ALEHQ2275-14-45 08:08:001.7[facility]annCHE[facility] ESZRB0027-29-94 08:08:003.8[facility] HBZYIGPZAZ0546-79-43 08:08:00 Test Item Value Reference Range Interpretation Comments PT (test code = PT) 13.0 s 12.0-14.7 [facility] LicjncmCWIITKAUEZ2327-51-00 08:08:00 Test Item Value Reference Range Interpretation Comments INR (test code = INR) 0.98 1 0.85-1.17 [facility] TznhcxlEBGPTHHYJM6622-97-11 08:08:00 Test Item Value Reference Range Interpretation Comments PTT (test code = PTT) 30.5 s 22.9-35.8 [facility] BfoezybGFMLIPLSQX2027-93-00 08:08:000.1[facility] HermannCARDIAC ENZYMES 2020-08-07 08:08:0050[facility]annCHEM KOPJN9430-65-89 08:08:00 Test Item Value Reference Range Interpretation Comments B/C Ratio (test code = B/C Ratio) 3 1 04-02 [facility]annCHE[facility] XAYAL6932-99-24 08:08:004.5[facility]annCHEM PANEL 2020-08-07 08:08:001.4[facility]annCHEM YIRDK6136-10-90 08:08:003.1[facility]annCHEM KMFPN9588-06-27 08:08:00 Test Item Value Reference Range Interpretation Comments A/G Ratio (test code = A/G Ratio) 0.5 1 0.7-1.6 [facility] HermannCHEM [id number] 08:08:0015[facility]annCHEM PANEL 2020-08-07 08:08:0016[facility]annCHEM CAWMR6384-11-19 08:08:0082[facility]annCHEM HBQGN8095-21-84 08:08:000.4[facility]annCHEM ETRGX0106-22-62 08:08:001.7[facility]annCHE[facility] PKHOF9470-57-25 08:08:003.8[facility] XTAVPSHLED1984-74-57 08:08:00 Test Item Value Reference Range Interpretation Comments PT (test code = PT) 13.0 s 12.0-14.7 [facility] BmlljdmWJUZRBNUZL6050-59-66 08:08:00 Test Item Value Reference Range Interpretation Comments INR (test code = INR) 0.98 1 0.85-1.17 [facility] PgsbusyUKMKBOOSTM4388-10-06 08:08:00 Test Item Value Reference Range Interpretation Comments PTT (test code = PTT) 30.5 s 22.9-35.8 [facility] CafucwoVEEHUFBLQP0261-14-51 08:08:000.1[facility] HermannHEMATOLOGY 2020-08-07 02:04:000.1[facility] XaezaywIWPHNQIGHC1858-25-73 02:04:000.1[facility] JgiucjjSOJVBNNTYM7969-42-86 02:04:000.1[facility]annCHEM ZHCGV6110-90-51 01:34:004.8[facility]annCHEM XKGZZ0760-39-02 01:34:001.6[facility]annCHEM SSBZT1579-02-46 01:34:003.2[facility]annCHEM ZFUWM6586-53-92 01:34:00 Test Item Value Reference Range Interpretation Comments A/G Ratio (test code = A/G Ratio) 0.5 1 0.7-1.6 [facility]CHE[facility] YRRNV7267-07-96 01:34:0014[facility] HermannCHEM PANEL 2020-08-07 01:34:0016[facility] HermannCHEM HFEEU0183-35-19 01:34:0085[facility]annCHEM QGURH0147-00-51 01:34:000.4[facility]annCHEM HEOXK0762-52-60 01:34:00<0.1[facility]annCHEM MZWYX1347-92-62 01:34:004.8[facility] CHEM HYMOU6487-82-91 01:34:001.6[facility]annCHEM XRHSF6722-87-05 01:34:003.2 [facility]annCHE[facility] IUHBB7873-35-52 01:34:00 Test Item Value Reference Range Interpretation Comments A/G Ratio (test code = A/G Ratio) 0.5 1 0.7-1.6 [facility]annCHEM [id number] 01:34:0014[facility] HermannCHEM PANEL 2020-08-07 01:34:0016[facility]annCHEM ATRGI3843-82-99 01:34:0085[facility]annCHEM AYBGV6547-15-84 01:34:000.4[facility]annCHEM CVZEW5954-63-59 01:34:00<0.1[facility]annCHEM LUPFT7263-07-12 01:34:004.8[facility] CHEM SXPZQ6616-56-40 01:34:001.6[facility]annCHEM GHAIH9237-27-42 01:34:003.2 [facility]annCHEM AEVMA8464-32-50 01:34:00 Test Item Value Reference Range Interpretation Comments A/G Ratio (test code = A/G Ratio) 0.5 1 0.7-1.6 [facility]annCHE[facility] LBDVD2052-41-69 01:34:0014[facility] HermannCHEM PANEL 2020-08-07 01:34:0016[facility] HermannCHEM HJSXG3380-67-31 01:34:0085[facility]annCHEM JGMIZ7234-92-76 01:34:000.4[facility] HermannCHEM GMHUN2821-50-93 01:34:00<0.1[facility] HermannCARDIAC XBFAFSM9548-30-31 22:24:000.03[facility] HermannCHEM ZRVET9907-05-46 22:24:001.6[facility] IyhbyiyAEUCLUYLYX0278-44-17 22:24:001.0[facility] TqpthemUPPWWYKXLI4475-16-72 22:24:001.0[facility] TVGJBPCQFK6603-58-46 22:24:00Moderate *ABN*(08/06/20 5:24 PM)[facility] PGRWLETNJM5476-17-70 22:24:00 Test Item Value Reference Range Interpretation Comments PT (test code = PT) 12.9 s 12.0-14.7 [facility] RrkppeaFLTBGDEKWB8211-24-32 22:24:00 Test Item Value Reference Range Interpretation Comments INR (test code = INR) 0.97 1 0.85-1.17 [facility] LfbnesgIRGCTNPNSC8912-34-00 22:24:002.0[facility] HermannHEMATOLOGY 2020-08-06 22:24:000.0[facility] GgkyxadIYNFXTKOOI3452-99-03 22:24:00Normal (08/06/20 5:24 PM)[facility] MogehwiBHQEHFQMUI4860-18-87 22:24:00Normal (08/06/20 5:24 PM)[facility] HermannCARDIAC WDGTRMO9553-88-28 22:24:000.03[facility] CHEM FMNAX9124-51-56 22:24:001.6[facility] BzcxdmpGPFWRIETSF7129-70-91 22:24:001.0 [facility] DbudtwrNVCFGWOLBS1239-75-23 22:24:001.0[facility] HermannHEMATOLOGY 2020-08-06 22:24:00Moderate *ABN*(08/06/20 5:24 PM)[facility] HermannHEMATOLOGY 2020-08-06 22:24:00 Test Item Value Reference Range Interpretation Comments PT (test code = PT) 12.9 s 12.0-14.7 [facility] RdfzshjFECEZUQCDM3590-00-12 22:24:00 Test Item Value Reference Range Interpretation Comments INR (test code = INR) 0.97 1 0.85-1.17 [facility] XvivfttDKIBWNJQFG6770-12-63 22:24:002.0[facility]annHEMATOLOGY 2020-08-06 22:24:000.0[facility] YwjipwfPAWAYLPKZG7027-42-83 22:24:00Normal (08/06/20 5:24 PM)[facility] KkzdxncLYCFVPXWXB9768-57-79 22:24:00Normal (08/06/20 5:24 PM)[facility]annCARDIAC DEPVYRZ0095-73-46 22:24:000.03[facility] CHEM EZJRD9181-37-50 22:24:001.6[facility] VxsnqesMPYOGROJSH1097-27-55 22:24:001.0 [facility] TfgltyvISLDCMYCSZ9869-85-54 22:24:001.0[facility]annHEMATOLOGY 2020-08-06 22:24:00Moderate *ABN*(08/06/20 5:24 PM)[facility]annHEMATOLOGY 2020-08-06 22:24:00 Test Item Value Reference Range Interpretation Comments PT (test code = PT) 12.9 s 12.0-14.7 [facility] BpmvakpHTALONMJNQ9374-22-75 22:24:00 Test Item Value Reference Range Interpretation Comments INR (test code = INR) 0.97 1 0.85-1.17 [facility] FgqtckfABFGVPZZJQ6483-79-12 22:24:002.0[facility]annHEMATOLOGY 2020-08-06 22:24:000.0[facility] MkynbukHSCVQORXNU1203-00-03 22:24:00Normal (08/06/20 5:24 PM)[facility] RnzmuyiMEYVWDSISR5853-52-53 22:24:00Normal (08/06/20 5:24 PM)[facility]annCARDIAC MWLFGNP2154-84-56 13:32:000.03[facility] CHEM BKLGI7272-27-46 13:32:29338Wrqsdvpe HermannCHEM KEEQN7444-02-47 13:32:0025 [facility]annCHE[facility] TISXC6436-18-27 13:32:009.66[facility]annCHEM PANEL 2020-07-24 13:32:45459Pbbabgju HermannCHEM OEBGW9252-61-84 13:32:003.0[facility]annCHEM QQMOG1896-96-95 13:32:0091[facility]annCHEM LYDCF1572-15-69 13:32:0032[facility]annCHEM JXUCJ5031-81-12 13:32:0012.0[facility]annCHEM DJIYF1401-64-94 13:32:008.7[facility]annCHEM ATAHM6606-85-13 13:32:00 Test Item Value Reference Range Interpretation Comments B/C Ratio (test code = B/C Ratio) 3 1 6-25 [facility]annCHE[facility] YYSNF5951-59-44 13:32:004.9[facility]annCHEM PANEL 2020-07-24 13:32:001.5[facility]annCHEM LATAR5848-47-49 13:32:003.4[facility]annCHEM OTCHM0476-03-88 13:32:00 Test Item Value Reference Range Interpretation Comments A/G Ratio (test code = A/G Ratio) 0.4 1 0.7-1.6 [facility]annCHEM VQEGZ5397-71-19 13:32:0016[facility]annCHEM PANEL 2020-07-24 13:32:0022[facility]annCHEM RRAZF6402-59-73 13:32:0088[facility]annCHEM WBISB1642-02-56 13:32:000.5[facility]annCHEM STAYD9351-31-74 13:32:005[facility] YeegoleSPXGTGUSQE3860-26-36 13:32:006.2[facility] VJCZWQNYSR5709-12-71 13:32:002.89[facility] DnntwvlBOKRNMCYRM9231-51-78 13:32:00 8.4[facility] MfgtvfwCDWUBQEDDJ2598-35-96 13:32:0024.1[facility]annHEMATOLOGY 2020-07-24 13:32:0083.3[facility] YbvbzfsPNWWTFSMRH8721-49-27 13:32:00 Test Item Value Reference Range Interpretation Comments MCH (test code = MCH) 29.0 pg 27.0-31.0 [facility] JcivnfjUEYKQWXWTB7909-14-01 13:32:0034.8[facility]annHEMATOLOGY 2020-07-24 13:32:0013.6[facility] NnfmzisFZKWZJKINE1059-38-76 13:32:02596Rnqldjlc KwiyzpyTWLRYAGOZD0659-87-53 13:32:006.6[facility] AjabhlcRFLYTMGVZX1152-33-98 13:32:0073.5[facility] WzrklkhNBNYEKPDLX2254-36-24 13:32:0011.4[facility] PHDTFSSNOJ1458-10-67 13:32:008.7[facility] VpusbaeWSVHQYNFBR9474-81-07 13:32:005.4 [facility] PglmedlWFGZCIVTWD8578-52-88 13:32:001.0[facility]annHEMATOLOGY 2020-07-24 13:32:004.5[facility] KpbidszQVERTOZQAJ1250-62-67 13:32:000.7[facility] AsqbklvMFOBULRKUM0312-52-96 13:32:000.5[facility] JrnljhuGWTBLNKNTC7676-70-72 13:32:000.3[facility] DyttcydBVHODCBRKN9265-58-50 13:32:000.1[facility] CARDIAC GWACGQO1482-86-48 13:32:000.03[facility]annCHEM KHJGF4060-69-36 13:32:57366Zhhvkdgn HermannCHEM HMEPY9309-97-03 13:32:0025[facility]annCHEM ARXJJ6046-98-71 13:32:009.66[facility]annCHEM KLUTX4223-10-46 13:32:95639 [facility]annCHE[facility] UTDMW7000-02-56 13:32:003.0[facility]annCHEM PANEL 2020-07-24 13:32:0091[facility]annCHEM FUEXT4591-79-77 13:32:0032[facility]annCHEM DHUYF1757-14-60 13:32:0012.0[facility]annCHEM LEZXL2930-90-25 13:32:008.7[facility]annCHEM CGWFH5918-82-21 13:32:00 Test Item Value Reference Range Interpretation Comments B/C Ratio (test code = B/C Ratio) 3 1 6-25 [facility]annCHEM MUVKT8938-06-80 13:32:004.9[facility]annCHEM PANEL 2020-07-24 13:32:001.5[facility]annCHEM FGACN2256-66-20 13:32:003.4[facility]annCHEM PESBN2002-61-06 13:32:00 Test Item Value Reference Range Interpretation Comments A/G Ratio (test code = A/G Ratio) 0.4 1 0.7-1.6 [facility]annCHEM GVTPA3328-90-34 13:32:0016[facility]annCHEM PANEL 2020-07-24 13:32:0022[facility]annCHEM MWQID6687-52-10 13:32:0088[facility]annCHEM KOYNY4465-66-41 13:32:000.5[facility]annCHEM RQVPQ8945-73-12 13:32:005[facility] UnadxukQVFLZWGYYD1258-89-51 13:32:006.2[facility] GBWOMBTKLI4811-55-23 13:32:002.89[facility] VlnzbzjFITNDGUOXE4478-60-20 13:32:00 8.4[facility] PwazghvFHLKGMYEPY9273-10-49 13:32:0024.1[facility]annHEMATOLOGY 2020-07-24 13:32:0083.3[facility] NvlxyejMDUFHDYWMD2194-37-69 13:32:00 Test Item Value Reference Range Interpretation Comments MCH (test code = MCH) 29.0 pg 27.0-31.0 [facility] GvrmlbyJIUVSQUCBO9435-99-44 13:32:0034.8[facility]annHEMATOLOGY 2020-07-24 13:32:0013.6[facility] EvntifsKKSLHPHHTR8264-90-88 13:32:25187Paaahibc CvwkamfIXZUISZDCJ6470-13-43 13:32:006.6[facility] QcvevzxQKLHFUEDRA4774-41-49 13:32:0073.5[facility] XgnzlotMCKADZCRBE8106-10-90 13:32:0011.4[facility] WIXBAXLCIN1884-37-42 13:32:008.7[facility] PimoecfFSCNJGMHXG1978-75-95 13:32:005.4 [facility] VdcxfwjCOGLWYRKQK2419-95-64 13:32:001.0[facility]annHEMATOLOGY 2020-07-24 13:32:004.5[facility] KhdfzcmRGQYPCFLRG9934-03-86 13:32:000.7[facility] DbhjhplSGAWRKNLKD5735-44-40 13:32:000.5[facility] IlgcptjGLESZJBJXQ6330-33-81 13:32:000.3[facility] HpilmsnTRXANUFJMR6445-72-90 13:32:000.1[facility] CARDIAC HLGVOJY7865-59-50 13:32:000.03[facility] HermannCHEM DHAOR5965-03-21 13:32:40483Keifdorc HermannCHEM ZVSFS3739-24-85 13:32:0025[facility]annCHEM JKWYE7718-73-57 13:32:009.66[facility]annCHEM DEWBR7801-17-55 13:32:26442 [facility]annCHE[facility] ARSGB8380-51-18 13:32:003.0[facility]annCHEM PANEL 2020-07-24 13:32:0091[facility]annCHEM OIKOT5562-03-99 13:32:0032[facility]annCHEM LKEKN4474-77-56 13:32:0012.0[facility]annCHEM GBJSU5305-20-98 13:32:008.7[facility]annCHEM NEQNF5927-40-58 13:32:00 Test Item Value Reference Range Interpretation Comments B/C Ratio (test code = B/C Ratio) 3 1 6-25 [facility]annCHEM XJIQD9325-21-89 13:32:004.9[facility]annCHEM PANEL 2020-07-24 13:32:001.5[facility]annCHEM TAFBY7039-26-74 13:32:003.4[facility]annCHEM QCDYQ9733-00-99 13:32:00 Test Item Value Reference Range Interpretation Comments A/G Ratio (test code = A/G Ratio) 0.4 1 0.7-1.6 [facility]annCHEM VKDXP8249-61-64 13:32:0016[facility]annCHEM PANEL 2020-07-24 13:32:0022[facility]annCHEM DCXYA2200-90-63 13:32:0088[facility]annCHEM QRQUC2277-40-40 13:32:000.5[facility]annCHEM VIZVU7191-86-29 13:32:005[facility] XztxmriPVDIQGMWFY5812-31-56 13:32:006.2[facility] HEYYTADRIC0393-98-92 13:32:002.89[facility] TrickuwLOBIAGPBBQ8426-61-97 13:32:00 8.4[facility] RgtzabdXTYRVVGAHO9919-63-89 13:32:0024.1[facility] HermannHEMATOLOGY 2020-07-24 13:32:0083.3[facility] JteazwgKUUKBDKYOT1712-26-22 13:32:00 Test Item Value Reference Range Interpretation Comments MCH (test code = MCH) 29.0 pg 27.0-31.0 [facility] OmhxdynYWZYXZDEMS7116-35-43 13:32:0034.8[facility] HermannHEMATOLOGY 2020-07-24 13:32:0013.6[facility] LbxbvlwEYLHLQKROF1523-78-84 13:32:99568Jknfordy UxnfihfSIVHCPEBMI2370-51-05 13:32:006.6[facility] CnqwtabMGPAJHGICJ1961-39-15 13:32:0073.5[facility] ExldnylILRIHMOSZS6624-74-56 13:32:0011.4[facility] DIZAKYNPNQ9524-57-43 13:32:008.7[facility] HkjrtkgGAGYXPFBID6078-04-47 13:32:005.4 [facility] RyrziorAMPSIABKTG8318-46-73 13:32:001.0[facility] HermannHEMATOLOGY 2020-07-24 13:32:004.5[facility] FleevcjYNEWFZSQWR2225-51-64 13:32:000.7[facility] MsucuidQILFLKMYDT6523-55-20 13:32:000.5[facility] UrunftcYKQIPRNVIN4112-96-87 13:32:000.3[facility] MekevwyJEJBDYVYFK2673-01-26 13:32:000.1[facility] HermannCHEM XYRNI7731-61-04 08:13:21681Gucfytfs HermannCHEM GIIIU1930-39-99 08:13:0026 [facility]annCHEM WMCZC2132-32-61 08:13:009.23[facility]annCHEM PANEL 2020-07-15 08:13:22141Lvsnkhru HermannCHEM JGMVY6644-66-37 08:13:003.8[facility]annCHEM LZHFC5287-23-29 08:13:0097[facility]annCHEM EEQSZ7111-36-18 08:13:0028[facility]annCHEM USLMS1280-24-82 08:13:009.0[facility]annCHEM HEGVO7516-34-08 08:13:0013.8[facility]annCHEM AQQQC8689-43-07 08:13:006 [facility]annCHEM KPPOY0606-68-43 08:13:15883Elfyukbm HermannCHEM PANEL 2020-07-15 08:13:0026[facility]annCHEM DNFAJ9941-36-94 08:13:009.23[facility]annCHEM GYGXJ9645-27-85 08:13:89463Mpoeikus HermannCHEM INXDY9445-50-82 08:13:003.8[facility]annCHEM JNQQS7770-18-96 08:13:0097[facility]annCHEM YSPYS3242-57-12 08:13:0028[facility]annCHEM WCZUT7846-92-35 08:13:009.0 [facility]annCHEM ABKVB9965-24-23 08:13:0013.8[facility]annCHEM PANEL 2020-07-15 08:13:006[facility]annCHEM AGNAR8788-56-97 08:13:09893Kcqkjujv HermannCHEM HLEIM7793-24-89 08:13:0026[facility]annCHEM ARLEX7944-39-50 08:13:009.23[facility]annCHEM KOBRR8254-49-51 08:13:25493Zksroxfg HermannCHEM VYBGA0573-24-59 08:13:003.8[facility]annCHEM BHQRA2197-38-86 08:13:0097 [facility]annCHEM TPAJU6346-63-68 08:13:0028[facility]annCHEM PANEL 2020-07-15 08:13:009.0[facility]annCHEM WMBGL9855-15-79 08:13:0013.8[facility] HermannCHEM IMAXZ6058-47-34 08:13:006[facility] HermannMOLECULAR DIAGNOSTIC 2020-07-14 22:34:00Negative (07/14/20 5:34 PM)[facility]annURINE AND STOOL 2020-07-14 22:34:00None Seen (07/14/20 5:34 PM)[facility]annMOLECULAR QHJLFXCBDB7580-51-52 22:34:00Negative (07/14/20 5:34 PM)[facility]annUR[facility] AND KYISQ3253-33-67 22:34:00None Seen (07/14/20 5:34 PM)[facility] HermannMOLECULAR LEHPJIPEBU9735-44-82 22:34:00Negative (07/14/20 5:34 PM)[facility] AND OOLPJ4270-34-57 22:34:00None Seen (07/14/20 5:34 PM)[facility]annCHEM PANEL 2020-07-14 08:37:64418Mqncltnr HermannCHEM NWTOT5527-99-11 08:37:0030[facility]annCHEM KZYYX2086-22-42 08:37:009.56[facility]annCHEM YGGUR7742-18-93 08:37:08120Pufpagpm HermannCHEM JXIBX5391-79-69 08:37:003.4[facility]annCHEM HTRGF9620-21-44 08:37:0099[facility]annCHEM VQGIA5528-93-47 08:37:0028 [facility]annCHEM XGRRT6282-14-38 08:37:008.6[facility]annCHEM PANEL 2020-07-14 08:37:0012.4[facility] HermannCHEM AEAYH4448-84-83 08:37:005[facility]annCHEM AQWMJ9141-51-87 08:37:66255Rgwwfgse HermannCHEM WTSBY2556-17-68 08:37:0030[facility]annCHEM VRMXN5131-67-64 08:37:009.56[facility]annCHEM JGJDC1393-31-87 08:37:90823Gfomyhmo HermannCHEM NWNUC9774-22-12 08:37:003.4 [facility]annCHEM FUVTW8648-44-46 08:37:0099[facility]annCHEM PANEL 2020-07-14 08:37:0028[facility]annCHEM KMYDR2238-13-62 08:37:008.6[facility]annCHEM ATXWF0426-48-67 08:37:0012.4[facility]annCHEM QCTFA4316-84-55 08:37:005[facility]annCHEM DWXXD6992-48-82 08:37:02441Rctitpuo HermannCHEM VJSEB7328-75-38 08:37:0030[facility]annCHEM EMPEM9267-59-88 08:37:009.56 [facility]annCHEM IZRVR1960 08:37:01029Ypwligmu HermannCHEM PANEL 2020-07-14 08:37:003.4[facility]annCHEM DBMXA0791-94-84 08:37:0099[facility]annCHEM AZNNY4985-67-37 08:37:0028[facility]annCHEM GYWCP9986-41-00 08:37:008.[facility]annCHEM FCLDG0639-43-64 08:37:0012.4[facility]annCHEM VNMOO2210-29-22 08:37:005[facility]annBODY VPZBDT3439-21-24 01:30:00Light Yellow (07/13/20 8:30 PM)[facility] DYJICC6010-61-39 01:30:00Clear (07/13/20 8:30 PM)[facility] YNJBZU6292-71-59 01:30:00Colorless (07/13/20 8:30 PM)[facility]annB[facility] XOPLQP6858-73-51 01:30:68238Tgywpynf [facility]annB[facility] XQDLSP3394-07-61 01:30:01142Gbqxbqta [facility]annBODY XIUHXW6537-30-30 01:30:00[place] (07/13/20 8:30 PM)[facility]annB[facility] KCRNGX6893-75-66 01:30:00 23[facility]annB[facility] YWYXMU6566-84-68 01:30:0016[facility]annB[facility] FLUIDS 2020-07-14 01:30:0053[facility]annB[facility] AOXDIR9894-16-17 01:30:006[facility]annB[facility] XMUTRL8473-49-53 01:30:002[facility] QTQTXP1888-04-08 01:30:00Light Yellow (07/13/20 8:30 PM)[facility] CTYRZS0504-28-03 01:30:00Clear (07/13/20 8:30 PM)[facility] HSURGK4829-34-10 01:30:00 Colorless (07/13/20 8:30 PM)[facility] CERXVF9253-04-22 01:30:70812 [facility] OSMJXS3086-09-21 01:30:90540Cocrdbfo [facility]annB[facility] FLUIDS 2020-07-14 01:30:00[place] (07/13/20 8:30 PM)[facility] FLUIDS 2020-07-14 01:30:0023[facility]annB[facility] GXFWIW6464-28-60 01:30:0016[facility] GGSGKN8576-10-28 01:30:0053[facility] BBFXBG6771-12-91 01:30:006[facility] IDGGXL6469-95-32 01:30:002[facility] URRVRS8585-41-10 01:30:00Light Yellow (07/13/20 8:30 PM)[facility] TPLNYA8019-07-93 01:30:00Clear (07/13/20 8:30 PM)[facility] FLUIDS 2020-07-14 01:30:00Colorless (07/13/20 8:30 PM)[facility] FLUIDS 2020-07-14 01:30:11711Rhwkyodv [facility]annB[facility] FMZJQG4405-96-80 01:30:08635Twncubxs [facility] VAOZMD8045-42-13 01:30:00[place] (07/13/20 8:30 PM)[facility]ODY YLWMNM7663-18-78 01:30:0023[facility]annB[facility] RSLAMK5570-21-22 01:30:0016 [facility] MTADDM0544-44-37 01:30:0053[facility] FLUIDS 2020-07-14 01:30:006[facility] CGEOZL4681-09-38 01:30:002[facility]annCHEM MHZKB6814-08-13 08:35:54165Jgfgoldy HermannCHEM PLZYO4555-52-38 08:35:0029[facility]annCHEM LNGAC6635-40-59 08:35:009.77[facility]annCHEM VUTIF6598-19-46 08:35:58935Hwpsgtbo [facility]annCHEM HTZXK2839-85-16 08:35:003.4 [facility]annCHE[facility] JIPDL5228-38-20 08:35:0097[facility]annCHEM PANEL 2020-07-13 08:35:0031[facility]annCHEM GPXIQ1888-73-68 08:35:008.8[facility]annCHEM EUGAT0973-68-41 08:35:008.4[facility]annCHEM QBMNR5004-94-54 08:35:005[facility]annCHEM LTXSC5570-50-21 08:35:16906Ilmhzvvx HermannCHEM BQITR9766-46-57 08:35:0029[facility]annCHEM YHGPF2718-99-42 08:35:009.77 [facility]annCHE[facility] DFCXV8357-91-91 08:35:40965Rojwvhke HermannCHEM PANEL 2020-07-13 08:35:003.4[facility]annCHEM MNWKO2261-49-68 08:35:0097[facility]annCHEM PWCQE2856-20-61 08:35:0031[facility]annCHEM TTLDX9942-07-02 08:35:008.8[facility]annCHEM HGBHS5138-86-08 08:35:008.4[facility]annCHEM CVWCX6840-99-59 08:35:005[facility]annCHEM KUFWE3411-20-58 08:35:91465 [facility]annCHEM TFJIY0913-43-35 08:35:0029[facility]annCHEM PANEL 2020-07-13 08:35:009.77[facility]annCHEM IYUJY2729-99-64 08:35:88071Kdolcgma HermannCHEM BXWJK4622-58-40 08:35:003.4[facility]annCHEM IJGOB4915-17-38 08:35:0097[facility]annCHEM WJTMX3895-24-85 08:35:0031[facility]annCHEM YRVQU9081-37-96 08:35:008.8[facility]annCHEM WCUWS5438-91-53 08:35:008.4 [facility]annCHEM QNHNY0344-23-04 08:35:005[facility]annBODY FLUIDS 2020-07-13 00:15:00Light Yellow (07/12/20 7:15 PM)[facility] FLUIDS 2020-07-13 00:15:00Clear (07/12/20 7:15 PM)[facility] YSXTCX5565-47-62 00:15:00Colorless (07/12/20 7:15 PM)[facility] TTWFCI6339-08-60 00:15:59195Wxbrswip [facility] SABHPS6723-42-95 00:15:83392Qeyxbyhv [facility] XNMWIR3824-20-90 00:15:0027[facility] NOSYKJ1729-71-33 00:15:0015 [facility] OXTZEU5358-59-52 00:15:0052[facility] FLUIDS 2020-07-13 00:15:003[facility] COOKZI3877-57-19 00:15:00Few (07/12/20 7:15 PM)[facility] DXBOXF0063-40-68 00:15:00See Note 4(07/12/20 7:15 PM)[facility] TXVVKM7698-59-17 00:15:00[place] (07/12/20 7:15 PM) [facility] NYYEVY2552-60-40 00:15:00Light Yellow (07/12/20 7:15 PM) [facility] GOZQON1350-56-36 00:15:00Clear (07/12/20 7:15 PM)[facility] MHFVNP0521-18-40 00:15:00Colorless (07/12/20 7:15 PM)[facility] BODY ZCPRJD2151-38-93 00:15:86136Gqnsyddx [facility] SQXXPX0194-32-87 00:15:00 247[facility] WTNLSH4257-88-80 00:15:0027[facility] FLUIDS 2020-07-13 00:15:0015[facility] XIVRJP9485-04-35 00:15:0052[facility] FNIOER1574-71-85 00:15:003[facility] QESLYP8322-49-46 00:15:00Few (07/12/20 7:15 PM)[facility] IRTIXU2879-78-19 00:15:00See Note 4(07/12/20 7:15 PM)[facility] RNJSYD5415-10-70 00:15:00[place] (07/12/20 7:15 PM)[facility] IJWYCB8577-95-62 00:15:00Light Yellow (07/12/20 7:15 PM)[facility] BWBEHO8970-89-04 00:15:00Clear (07/12/20 7:15 PM)[facility] BLRFIQ0400-87-96 00:15:00Colorless (07/12/20 7:15 PM)[facility] MCCZLU3525-11-73 00:15:65360Owpoztix [facility] FLUIDS 2020-07-13 00:15:88309Vvmxpdte [facility] WGPDWX6051-43-00 00:15:0027[facility] PISCXC0249-05-62 00:15:0015[facility] OSXVOF5576-00-31 00:15:0052[facility] BHHVQV5793-22-24 00:15:003[facility] CFDEQW4742-36-71 00:15:00Few (07/12/20 7:15 PM)[facility] FLUIDS 2020-07-13 00:15:00See Note 4(07/12/20 7:15 PM)[facility] FLUIDS 2020-07-13 00:15:00[place] (07/12/20 7:15 PM)[facility] AxhgxqkGOJWBHJNRP6841-26-08 09:50:0074.0[facility] EdyjrupPOMUMBHJVH0304-23-52 09:50:0014.8[facility] YPQHOBROBU1700-41-99 09:50:007.1[facility] HetjphvKIFJPOJSEL6758-78-52 09:50:003.5 [facility] OdrmqjpLBTGSUGKEQ4282-91-96 09:50:000.6[facility] HermannHEMATOLOGY 2020-07-12 09:50:004.9[facility] MkxjswpGNDVNZKSDZ0280-16-71 09:50:001.0[facility] IsekwaaZEUQNXBSMP2986-26-80 09:50:000.5[facility] VgcbocyKVPLNATOGH9329-13-85 09:50:000.2[facility] OyfyjopMQVWJJZQIW0965-13-99 09:50:006.7[facility] MTRHVALPOE8717-63-80 09:50:002.86[facility] LkovvtaARZHBJJEUP0522-71-81 09:50:00 8.3[facility] AkauyhzXGOPNIRGCI8897-63-99 09:50:0024.4[facility] HermannHEMATOLOGY 2020-07-12 09:50:0085.1[facility] ZbgpdbvXWOIDCAAJU9772-72-07 09:50:00 Test Item Value Reference Range Interpretation Comments MCH (test code = MCH) 29.0 pg 27.0-31.0 [facility] LchrgagEQHLBJLZOD2441-04-92 09:50:0034.1[facility] HermannHEMATOLOGY 2020-07-12 09:50:0014.1[facility] QhprshrMHYQKKNNYL5729-58-30 09:50:28820Ylfmfvqp KrqdiyaXDLWEWRUIG7593-73-31 09:50:006.6[facility] BrntiiwBCNWEFDWPR2470-18-63 09:50:0013.1[facility] PyneuojSCTCPRPGGM1134-32-08 09:50:0074.0[facility] TGVVPMDPZN0210-23-73 09:50:0014.8[facility] IjjzwhoNOUWIGYVXY2313-31-32 09:50:00 7.1[facility] JgeplmjTTUHCDXRTG0910-70-29 09:50:003.5[facility] 2020-07-12 09:50:000.6[facility] QejtfttESOKRWKMBM8801-86-41 09:50:004.9[facility] CubfswsDHVALZCKGU4762-14-67 09:50:001.0[facility] HwtjauyLZNXZOLVUH1629-78-54 09:50:000.5[facility] WzfaehtOSFEOJBVGM2556-93-93 09:50:000.2[facility] KFMASOTEAY0334-21-98 09:50:006.7[facility] VieumknTRIFAOGYGO6443-07-20 09:50:00 2.86[facility] EldvngjYVGEOZFGZF3426-90-57 09:50:008.3[facility]ann[facility] 2020-07-12 09:50:0024.4[facility] LycefpsCHNEPESUIT5782-44-44 09:50:0085.1[facility] EmlryoqKOLZYMLKGA0109-60-08 09:50:00 Test Item Value Reference Range Interpretation Comments MCH (test code = MCH) 29.0 pg 27.0-31.0 [facility] CpolknpETJTWWKQKJ5910-84-23 09:50:0034.1[facility] 2020-07-12 09:50:0014.1[facility] QrxthcaNXUPTFNOZF6905-38-81 09:50:40010Aevqczjv TzyfxyyYKYEXJBGXV6002-92-37 09:50:006.6[facility] LzqfqvlCLUUEKRUVL7226-96-10 09:50:0013.1[facility] IcuzglcYFODZXWERB8214-43-17 09:50:0074.0[facility] DCBABLKVTN2120-47-98 09:50:0014.8[facility] BmpnhzeIVBEDBUWKC0326-90-22 09:50:00 7.1[facility] PaqmndhEQXGYXDWSY2815-90-06 09:50:003.5[facility] 2020-07-12 09:50:000.6[facility] AwnfeowCHGXTJEXWD7213-88-39 09:50:004.9[facility] QophvaeZDQXBKLWNK8326-73-08 09:50:001.0[facility] EtlfqdiQWHMTMEZSI6568-38-12 09:50:000.5[facility] QxtggkvWZVTKHXIHV2422-42-15 09:50:000.2[facility] GFGNXRPDRO7358-57-49 09:50:006.7[facility] EpxiqfpPZEQPHAYTB6113-91-48 09:50:00 2.86[facility] UxjgzsjSGAOFSWLXH4572-25-36 09:50:008.3[facility]annHE[facility] 2020-07-12 09:50:0024.4[facility] CjoohpxPJFHWVIABH2973-26-85 09:50:0085.1[facility] KkbskqfQFMDKEIWOI6896-61-22 09:50:00 Test Item Value Reference Range Interpretation Comments MCH (test code = MCH) 29.0 pg 27.0-31.0 [facility] IxwsillXUDIHVPCZW7129-64-70 09:50:0034.1[facility] 2020-07-12 09:50:0014.1[facility] OlikxbcKHEUSQHWWX5961-10-10 09:50:08960Qhsdtxjv CzmwyoaAQEYFMVJXH5212-10-32 09:50:006.6[facility] TeitpdvKSIBEUWWHQ4452-19-58 09:50:0013.1[facility]ann[facility] LTPPKS4264-21-81 00:50:00Light Yellow (07/11/20 7:50 PM)[facility] RJFFPT5776-52-89 00:50:00Slight Cloudy (07/11/20 7:50 PM)[facility] DMMPKY0091-05-80 00:50:00Colorless (07/11/20 7:50 PM)[facility] FLTDYF1148-19-44 00:50:96871Okpxjtye HermannBODY FLUIDS 2020-07-12 00:50:0079[facility] RDKFPF0716-66-34 00:50:0053[facility] DKLEQJ5482-38-13 00:50:0010[facility] XWHBJC3025-04-10 00:50:0033[facility] CBVKLO3929-92-86 00:50:003[facility] UNOGPC7579-00-82 00:50:001[facility] MBLJWU6824-92-59 00:50:00[place] (07/11/20 7:50 PM)[facility] KXWVIC8061-38-95 00:50:00Light Yellow (07/11/20 7:50 PM)[facility] HLSKRG5191-18-17 00:50:00Slight Cloudy (07/11/20 7:50 PM)[facility] SDTZGO1406-76-73 00:50:00Colorless (07/11/20 7:50 PM)[facility] ULILWU4144-07-24 00:50:93559Vhyujtiv HermannBODY NTAFHN4127-53-05 00:50:0079[facility] PRHFMY6011-58-82 00:50:0053[facility] JMZYTO1832-51-12 00:50:0010[facility] LXLCQU5858-00-54 00:50:0033[facility] XSEDMN0344-77-69 00:50:003 [facility] DSAXLC6292-71-58 00:50:001[facility] FLUIDS 2020-07-12 00:50:00[place] (07/11/20 7:50 PM)[facility] FLUIDS 2020-07-12 00:50:00Light Yellow (07/11/20 7:50 PM)[facility] FLUIDS 2020-07-12 00:50:00Slight Cloudy (07/11/20 7:50 PM)[facility] FLUIDS 2020-07-12 00:50:00Colorless (07/11/20 7:50 PM)[facility] FLUIDS 2020-07-12 00:50:77637Fgmsqfit HermannBODY TRDAID8657-95-55 00:50:0079[facility] PLQGWQ4892-12-16 00:50:0053[facility] LORVHQ1221-29-40 00:50:0010[facility] CIXHXK9917-56-68 00:50:0033[facility] KPXYUI9165-95-74 00:50:003[facility] VQMXRY6748-01-28 00:50:001 [facility] VLGQMM5306-99-08 00:50:00[place] (07/11/20 7:50 PM)[facility] NkaqbdsQLNLQCPEDA9435-66-85 08:20:006.2[facility] QpoylxwJELAXNEFVC6920-66-06 08:20:002.74[facility] CqjrriqPUFGSYIVRM2836-40-06 08:20:008.0[facility] GHQRXJRNWX5724-55-18 08:20:0023.1[facility] HvyktruJTEGNEJFPA8118-02-85 08:20:00 84.4[facility] HqoawzyJYLMYWAKAH6232-76-18 08:20:00 Test Item Value Reference Range Interpretation Comments MCH (test code = MCH) 29.2 pg 27.0-31.0 [facility] TkcmacyRIBMKGPTBE6676-37-00 08:20:0034.7[facility]annHEMATOLOGY 2020-07-11 08:20:0013.9[facility] AdpxyrfAHEDPLVORK9477-65-15 08:20:48662Frznpffy PcghvhyPUQXGJARJE7266-48-15 08:20:006.8[facility] XmacfpcMLDSKXMLIP0725-04-16 08:20:0074.0[facility] RvmcoziPITEUHJDQH4762-05-19 08:20:0013.2[facility] OHUVDOJBWK0012-94-60 08:20:009.1[facility] LlxucdjEJYMDIANMP5054-03-98 08:20:003.2 [facility] HylymmkZATZEXLIKM6812-69-30 08:20:000.5[facility]annHEMATOLOGY 2020-07-11 08:20:004.6[facility] MrghnnnPOISZOCUCP8298-48-71 08:20:000.8[facility] IkfdxrlYAZRQDRHJM6173-77-00 08:20:000.6[facility] ZbvswgrEHCHOKMSAF2353-30-38 08:20:000.2[facility] MuckvxlALOODNSWAQ3015-56-84 08:20:006.2[facility] GOFTAYWPQE0702-61-49 08:20:002.74[facility] DgaofspEPFVKIKDBK4837-15-68 08:20:00 8.0[facility] RtdsjbyOPTMLWTVMC9855-50-41 08:20:0023.1[facility]HE[facility] 2020-07-11 08:20:0084.4[facility] HgujglcVKIXVJIJLJ2989-14-95 08:20:00 Test Item Value Reference Range Interpretation Comments MCH (test code = MCH) 29.2 pg 27.0-31.0 [facility] JvgglmfEWQTOPYMZI6583-61-80 08:20:0034.7[facility]annHEMATOLOGY 2020-07-11 08:20:0013.9[facility] PjfyhwvWZNVBUAMTT9115-28-35 08:20:77478Qgdmxfhe WtzdyxhBYWGUMMWFM3988-03-09 08:20:006.8[facility] CqmxilzKTOQVUDFZT3266-67-50 08:20:0074.0[facility] LathatwBXFWFKLCTY1809-75-46 08:20:0013.2[facility] RXQPGGXJDC5149-21-00 08:20:009.1[facility] GrlfgioVMSZEDWJKB5090-44-07 08:20:003.2 [facility] AoljfxiLLIAEXONVY4743-11-52 08:20:000.5[facility]annHEMATOLOGY 2020-07-11 08:20:004.6[facility] EenobyzCJTLDDFWDU3619-18-41 08:20:000.8[facility] GzqkyklNXOCCCZHHZ7005-11-77 08:20:000.6[facility] OkepmokWTAFEYURJC5171-61-47 08:20:000.2[facility] XnsjflwQXNQWMWJPY7686-21-53 08:20:006.2[facility] KDDHFTWAFY6363-04-81 08:20:002.74[facility] EpqorovKFJJPKGLDV3605-27-04 08:20:00 8.0[facility] HkdqcocMAWJOMEPCC8862-42-95 08:20:0023.1[facility]HEMATOLOGY 2020-07-11 08:20:0084.4[facility] QranyefFUHMLKSITG9319-80-57 08:20:00 Test Item Value Reference Range Interpretation Comments MCH (test code = MCH) 29.2 pg 27.0-31.0 [facility] WyaocmsAMXPCLVXET0673-95-16 08:20:0034.7[facility]annHEMATOLOGY 2020-07-11 08:20:0013.9[facility] UisdepkRJFZDTERGX1904-92-15 08:20:98091Txprtnaw VlgforiDXQYYMMBTU5648-56-48 08:20:006.8[facility] ZohtiteJMDNSDFKNB7746-79-79 08:20:0074.0[facility] HvunnzwFAMZCUFGJN9292-07-68 08:20:0013.2[facility] MMLLNXIUYY3997-16-12 08:20:009.1[facility] TdibfwwWJKOGEHFCP8281-44-15 08:20:003.2 [facility] IzlpkmhNPBTOUBOEZ8886-28-71 08:20:000.5[facility]annHEMATOLOGY 2020-07-11 08:20:004.6[facility] ZzlhlpeCHAOAAWMAR3734-47-32 08:20:000.8[facility] InjgtwzIPNAPNCYDI7111-19-63 08:20:000.6[facility] NuojbesHOFSPUWRIZ2823-85-22 08:20:000.2[facility] SbqyfujJBRZYNUMLC3584-91-19 14:52:006.6[facility] OWEZZJGCNH7969-65-16 14:52:002.76[facility] DccwlryMVXPSOZDQG3952-80-87 14:52:00 8.1[facility] RcyuarvBYGTBSEZLY0716-93-18 14:52:0023.3[facility]annHEMATOLOGY 2020-07-10 14:52:0084.2[facility] EuoudceLUCESAPWOC0622-84-80 14:52:00 Test Item Value Reference Range Interpretation Comments MCH (test code = MCH) 29.3 pg 27.0-31.0 [facility] AbxbmfeEMHHGDIPKT8534-10-60 14:52:0034.8[facility]annHEMATOLOGY 2020-07-10 14:52:0013.7[facility] MwglmziYOJDLOBCET3413-49-61 14:52:46318Xcfchvjm CsodyhlXIJZDWDOHH8745-83-84 14:52:006.6[facility] SelzjkoSHYWEHNRAU7042-69-90 14:52:00Normal (07/10/20 9:52 AM)[facility] WfixbsiKQEQXSDHBA0390-66-11 14:52:00 Normal (07/10/20 9:52 AM)[facility] UnbtffdOXSMEHSOLQ2847-12-56 14:52:0076.0 [facility] CwcjfzeUWEKWOSVBB5542-80-61 14:52:0011.5[facility]annHEMATOLOGY 2020-07-10 14:52:008.9[facility] JtiflmlNILCADALEI1017-44-66 14:52:003.1[facility] XfvrzuuLCTNVCOMPH8661-87-56 14:52:000.5[facility] ObuhuivYJKNKKMTZX6054-03-30 14:52:005.1[facility] XxwvzwwPTSIRQSHPQ5113-76-61 14:52:000.8[facility] RIFUHGDNRQ5113-20-05 14:52:000.6[facility] FlfmjmeBRQXWXVAOU3755-72-64 14:52:000.2 [facility] EyqkxowMZGVMUIEXP4901-72-78 14:52:006.6[facility]annHEMATOLOGY 2020-07-10 14:52:002.76[facility] NkwxhxkQOCJACWCIR1199-35-62 14:52:008.1[facility] VccvfeqEWJBVUKQQG4188-99-56 14:52:0023.3[facility] HhyabbuDYLVLPJHYD6146-86-24 14:52:0084.2[facility] BwczmcuMJHVSFRIIP0403-20-67 14:52:00 Test Item Value Reference Range Interpretation Comments MCH (test code = MCH) 29.3 pg 27.0-31.0 [facility] HqvcfesMVASYDZAHK7064-94-65 14:52:0034.8[facility]annHEMATOLOGY 2020-07-10 14:52:0013.7[facility] VmhilkeDBIRAGRUMC8367-68-24 14:52:82385Rbsuerbu RudrxggXTMSKXRGZK3272-44-51 14:52:006.6[facility] InujrpfSSBHZOCCEV6625-95-54 14:52:00Normal (07/10/20 9:52 AM)[facility] GzotlrkKFKSEJTEJK2964-72-22 14:52:00 Normal (07/10/20 9:52 AM)[facility] OoejrguAUKNUESEOX0884-02-50 14:52:0076.0 [facility] MpcptzlSIGVADTBXS1033-06-82 14:52:0011.5[facility]annHEMATOLOGY 2020-07-10 14:52:008.9[facility] LcmmdzfNFUUSGFEQY9096-47-44 14:52:003.1[facility] AaidckgIANFWXXOER6982-57-68 14:52:000.5[facility] RwhyrrnIDUQZLIFBZ0783-42-61 14:52:005.1[facility] GdjcpnvRTNEQGOEYR1326-50-59 14:52:000.8[facility] TFLTWUHNPF4891-14-14 14:52:000.6[facility] DjswndlOJASPQFGIO5455-71-74 14:52:000.2 [facility] WaipvizAOTANEFIZY9680-85-49 14:52:006.6[facility]annHEMATOLOGY 2020-07-10 14:52:002.76[facility] SdistoeGYQBXHMBPR1391-11-33 14:52:008.1[facility] ObluajvMDLDCSKIKQ7627-74-56 14:52:0023.3[facility] UmpjtbuVLDKNDISVO5062-29-34 14:52:0084.2[facility] ZxgboefOQRXXCZTHR1451-92-72 14:52:00 Test Item Value Reference Range Interpretation Comments MCH (test code = MCH) 29.3 pg 27.0-31.0 [facility] XjqpkpeQJAUNOWHOW6704-40-65 14:52:0034.8[facility]annHEMATOLOGY 2020-07-10 14:52:0013.7[facility] CuffnebPPFGDWKKIJ7033-76-86 14:52:23085Lijrkref DuoumgyVFUCHNBMMD5441-26-50 14:52:006.6[facility] UedjommUMXVMVVXIQ8640-26-27 14:52:00Normal (07/10/20 9:52 AM)[facility] TcvijtoKYKJANGPEH5635-79-97 14:52:00 Normal (07/10/20 9:52 AM)[facility] WdccrwuMZJKAIVCJG4731-33-10 14:52:0076.0 [facility] ZfywtzcBUODVDIKMP3719-77-66 14:52:0011.5[facility]annHEMATOLOGY 2020-07-10 14:52:008.9[facility] IcjwsznMJJRLLKGPF9219-99-16 14:52:003.1[facility] EpxgnafBUOWQYLGCZ7583-27-63 14:52:000.5[facility] SijexkvJNNSZIUICP3491-73-85 14:52:005.1[facility] MsvyaneCLDZDAVPHR6585-76-61 14:52:000.8[facility] IHCAFXKOUA5167-75-98 14:52:000.6[facility] NieujcnUFVHICNYTT0071-41-51 14:52:000.2 [facility]annCHEM XIVAO6355-12-95 14:49:005.2[facility]annCHEM PANEL 2020-07-09 14:49:001.5[facility]annCHEM BLMQU1676-34-83 14:49:0013[facility]annCHEM CWJWO2493-69-20 14:49:0011[facility]annCHEM SKUYC6802-53-39 14:49:0075[facility]annCHEM UFGAJ9649-47-84 14:49:000.4[facility]annCHEM OPAQY2349-08-53 14:49:00 Test Item Value Reference Range Interpretation Comments B/C Ratio (test code = B/C Ratio) 4 1 6-25 [facility]annCHEM EIEVC6003-23-19 14:49:003.7[facility]annCHEM PANEL 2020-07-09 14:49:00 Test Item Value Reference Range Interpretation Comments A/G Ratio (test code = A/G Ratio) 0.4 1 0.7-1.6 [facility]annCHE[facility] YJEUW2455-55-20 14:49:004.1[facility]annCHEM PANEL 2020-07-09 14:49:005.2[facility]annCHEM GETMB3137-59-19 14:49:001.5[facility]annCHEM PRJXS1491-08-80 14:49:0013[facility]annCHEM KZENT8951-92-47 14:49:0011[facility]annCHEM WKYBK6653-47-20 14:49:0075[facility]annCHEM CZKGZ0804-55-40 14:49:000.4[facility]annCHEM CFGTJ8022-27-91 14:49:00 Test Item Value Reference Range Interpretation Comments B/C Ratio (test code = B/C Ratio) 4 04-02 [facility]annCHE[facility] SVDPE0663-33-35 14:49:003.7[facility]annCHEM PANEL 2020-07-09 14:49:00 Test Item Value Reference Range Interpretation Comments A/G Ratio (test code = A/G Ratio) 0.4 1 0.7-1.6 [facility]annCHE[facility] WOBVM9478-59-70 14:49:004.1[facility]annCHEM PANEL 2020-07-09 14:49:005.2[facility]annCHEM KMQJJ4776-86-31 14:49:001.5[facility]annCHEM UJFHW0444-75-54 14:49:0013[facility]annCHEM MWCMG6016-30-83 14:49:0011[facility]annCHEM CIEOB1703-69-38 14:49:0075[facility]annCHEM FVJUO1422-05-46 14:49:000.4[facility]annCHEM WCEMW8522-34-18 14:49:00 Test Item Value Reference Range Interpretation Comments B/C Ratio (test code = B/C Ratio) 4 04-02 [facility]annCHEM ISOIK9176-92-97 14:49:003.7[facility]annCHEM PANEL 2020-07-09 14:49:00 Test Item Value Reference Range Interpretation Comments A/G Ratio (test code = A/G Ratio) 0.4 1 0.7-1.6 [facility]annCHEM NXZHX5237-52-11 14:49:004.1[facility] HermannTOXICOLOGY 2020-07-09 09:57:0015.9[facility] GnqhbmnKCUKBRRJVH2894-56-78 09:57:0015.9[facility] BrykddfCZCERKGUIW0558-34-38 09:57:0015.9[facility] XfusdabUVCDZVACJB6036-12-41 18:59:0015.4[facility] ZtiamagBRTCHYOQCW1690-20-87 18:59:0015.4[facility] GGNMWXHMKM3606-74-36 18:59:0015.4[facility]annBLOOD BANK WRKJTMJ9975-79-60 11:40:00Negative (07/06/20 6:40 AM)[facility]BL[facility] OOOBGVV6949-72-60 11:40:00Negative (07/06/20 6:40 AM)[facility]BL[facility] NOUBMLP8148-91-68 11:40:00Negative (07/06/20 6:40 AM)[facility]annCARDIAC JIYYLOP8047-50-19 11:07:00<0.02[facility]annCHEM TATQX3417-60-30 11:07:001.8[facility] CHEM EVOWR9832-42-17 11:07:005.3[facility]annCHEM NUMGU8200-93-31 11:07:0048 [facility]annCHE[facility] YVLFB6036-18-24 11:07:005.3[facility]annCHEM PANEL 2020-07-06 11:07:001.6[facility]annCHEM UVOQL6672-71-63 11:07:003.7[facility]annCHEM WHPOQ2896-24-57 11:07:00 Test Item Value Reference Range Interpretation Comments A/G Ratio (test code = A/G Ratio) 0.4 1 0.7-1.6 [facility]annCHEM AKFVB8231-89-43 11:07:0012[facility]annCHEM PANEL 2020-07-06 11:07:0013[facility]annCHEM EHBMC4877-81-39 11:07:0067[facility]annCHEM IQBKE1127-68-03 11:07:000.[facility]annCHEM GEVUB3513-57-73 11:07:00<0.1[facility]annCHEM BAIFT5515-50-49 11:07:000.6[facility] SXHNDFPNPI0870-23-68 11:07:00 Test Item Value Reference Range Interpretation Comments PTT (test code = PTT) 40.6 s 22.9-35.8 [facility] IqrjnepYMSJBVCLCP1518-39-43 11:07:00 Test Item Value Reference Range Interpretation Comments PT (test code = PT) 14.0 s 12.0-14.7 [facility] MwlrvkjPSGENXORSR6579-82-94 11:07:00 Test Item Value Reference Range Interpretation Comments INR (test code = INR) 1.08 1 0.85-1.17 [facility] HermannCARDIAC JQNNUCZ3334-87-12 11:07:00<0.02[facility] HermannCHEM MEMSN5885-55-44 11:07:001.8[facility] HermannCHEM THEML5889-81-17 11:07:005.3 [facility]annCHEM NMLPP3418-34-00 11:07:0048[facility]annCHEM PANEL 2020-07-06 11:07:005.3[facility] HermannCHEM JLVCB2958-42-29 11:07:001.6[facility] HermannCHEM WHRAH1666-65-70 11:07:003.7[facility] HermannCHEM EWYOI6103-84-03 11:07:00 Test Item Value Reference Range Interpretation Comments A/G Ratio (test code = A/G Ratio) 0.4 1 0.7-1.6 [facility]annCHEM WWJFQ4400-50-76 11:07:0012[facility]annCHEM PANEL 2020-07-06 11:07:0013[facility]annCHEM RFRHD8332-30-57 11:07:0067[facility]annCHEM YLTOF0278-34-81 11:07:000.6[facility] HermannCHEM LZSHG5159-55-36 11:07:00<0.1[facility] HermannCHEM NSVOC3023-71-76 11:07:000.6[facility] UEHJDLUYCX7408-83-04 11:07:00 Test Item Value Reference Range Interpretation Comments PTT (test code = PTT) 40.6 s 22.9-35.8 [facility] XttxuzkNFCUUDCUQU4380-35-72 11:07:00 Test Item Value Reference Range Interpretation Comments PT (test code = PT) 14.0 s 12.0-14.7 [facility] ElzbqlkIOUXLYSYPM4316-72-39 11:07:00 Test Item Value Reference Range Interpretation Comments INR (test code = INR) 1.08 1 0.85-1.17 [facility]annCARDIAC THXAFXU4758-55-20 11:07:00<0.02[facility] HermannCHEM WTFPM8974-20-38 11:07:001.8[facility]annCHEM IYRMP6196-30-34 11:07:005.3 [facility]annCHEM MQDWG5199-27-10 11:07:0048[facility]annCHEM PANEL 2020-07-06 11:07:005.3[facility] HermannCHEM HVLKI7156-21-69 11:07:001.6[facility]annCHEM GTBRU8748-54-18 11:07:003.7[facility] HermannCHEM SGKNV7076-88-68 11:07:00 Test Item Value Reference Range Interpretation Comments A/G Ratio (test code = A/G Ratio) 0.4 1 0.7-1.6 [facility]annCHEM KFQKT9020-80-27 11:07:0012[facility]annCHEM PANEL 2020-07-06 11:07:0013[facility] HermannCHEM BERKW9750-63-85 11:07:0067[facility] HermannCHEM TUZLL7437-33-95 11:07:000.6[facility] HermannCHEM JJFCG0278-38-28 11:07:00<0.1[facility] HermannCHEM IJZCQ6018-84-73 11:07:000.6[facility] LYSTWULMEA8837-01-95 11:07:00 Test Item Value Reference Range Interpretation Comments PTT (test code = PTT) 40.6 s 22.9-35.8 [facility] WgfzgrnKIOIHAVRYR6613-80-35 11:07:00 Test Item Value Reference Range Interpretation Comments PT (test code = PT) 14.0 s 12.0-14.7 [facility] ObwjglmKTFSVIAGHN5831-11-83 11:07:00 Test Item Value Reference Range Interpretation Comments INR (test code = INR) 1.08 1 0.85-1.17 [facility] (NA, K, CL, CO2, GLUCOSE, BUN, CREATININE, CA)2020-06-23 11:25:00 Test Item Value Reference Range Interpretation Comments NA (test code = 132 mmol/L 135-145 L 3602556145) K (test code = 3.1 mmol/L 3.5-5 L 6541115543) CL (test code = 95 mmol/L 98-108 L 6774904913) CO2 TOTAL (test code = 31 mmol/L 23-31 4334975221) AGAP (test code = 2-16 1747443168) BUN (test code = 37 mg/dL 7-23 H 5430901070) GLUCOSE (test code = 122 mg/dL 70-110 H 6897017662) CREATININE (test code = 10.66 mg/dL 0.6-1.25 H 2478752356) CALCIUM (test code = 8.9 mg/dL 8.6-10.6 0852844204) eGFR Calculation mL/min/1.73m2 (Non-) (test code = 7443535468) eGFR Calculation mL/min/1.73m2 () (test code = 8699148880) JALEEL (test code = JALEEL) Association of Glomerular Filtration Rate (GFR) and Staging of Kidney Disease* + --+ --+ ------+| GFR (mL/min/1.73 m2) ?| With Kidney Damage ?| ?Without Kidney Damage+ --------+ --------+ +| ?>90 ?| ?Stage one ?| ? Normal ?+ ---+ ---+ -------+| ?60-89 ?| ?Stage two ?| ? Decreased GFR ? + --+ --+ ------+| ?30-59 ?| ?Stage three ?| ? Stage three ? + --+ --+ ------+| ?15-29 ?| ?Stage four ? | ? Stage four ?+ ---+ ---+ -------+| ?<15 (or dialysis) ? ?| ?Stage five ? | ? Stage five ?+ ---+ ---+ -------+ *Each stage assumes the associated GFR level has been in effect for at least three months. ?Stages 1 to 5, with or without kidney disease, indicate chronic kidney disease. Notes: Determination of stages one and two (with eGFR >59mL/min/1.73 m2) requires estimation of kidney damage for at least three months as defined by structural or functional abnormalities of the kidney, manifested by either:Pathological abnormalities or Markers of kidney damage (including abnormalities in the composition of the blood or urine or abnormalities in imaging tests). Lab Interpretation Abnormal (test code = 24064-9) [facility] 11:25:00 Test Item Value Reference Range Interpretation Comments MAGNESIUM (test code = 7039307187) 2.3 mg/dL 1.7-2.4 Lab Interpretation (test code = Normal 98524-8) [facility]PHOS[facility]ORUS2020-09-15 11:25:00 Test Item Value Reference Range Interpretation Comments PHOSPHORUS (test code = 0231210934) 5.8 mg/dL 2.5-5 H Lab Interpretation (test code = Abnormal 40834-7) [facility] HospitalDIFF CONSULT ZGZQEWNTFLYVDG9378-13-06 22:33:00 WBCs: Leukocytes are adequate in number. Toxic neutrophils, reactive lymphocytes and reactive monocytes are seen. RBCs: Normocytic normochromic anemia with mild poikilocytosis including occasional maria luz cells suggestive of anemia of chronic kidney disease. Platelets: Adequate in number.[facility] HospitalVITAMIN D, 76-[id number] 16:40:00 Test Item Value Reference Range Interpretation Comments VIT D 25OH (test code = <13 25-80 L 56960-6) JALEEL (test code = JALEEL) Deficiency: <20 ng/mLInsufficiency: 20-24 ng/mLOptimal: 25-80 ng/mL Lab Interpretation (test Abnormal code = 65565-9) [facility]BAS[facility] (NA, K, CL, CO2, GLUCOSE, BUN, CREATININE, CA)2020-06-21 10:22:00 Test Item Value Reference Range Interpretation Comments NA (test code = 129 mmol/L 135-145 L 8813003104) K (test code = 3.3 mmol/L 3.5-5 L 3401826879) CL (test code = 94 mmol/L 98-108 L 6487033262) CO2 TOTAL (test code = 31 mmol/L 23-31 5728967717) AGAP (test code = 2-16 2762719093) BUN (test code = 39 mg/dL 7-23 H 7199547968) GLUCOSE (test code = 82 mg/dL 70-110 8068984646) CREATININE (test code = 11.37 mg/dL 0.6-1.25 H 5364366471) CALCIUM (test code = 8.6 mg/dL 8.6-10.6 3535577362) eGFR Calculation mL/min/1.73m2 (Non-) (test code = 6149303947) eGFR Calculation mL/min/1.73m2 () (test code = 4812768261) JALEEL (test code = JALEEL) Association of Glomerular Filtration Rate (GFR) and Staging of Kidney Disease* + --+ --+ ------+| GFR (mL/min/1.73 m2) ?| With Kidney Damage ?| ?Without Kidney Damage+ --------+ --------+ +| ?>90 ?| ?Stage one ?| ? Normal ?+ ---+ ---+ -------+| ?60-89 ?| ?Stage two ?| ? Decreased GFR ? + --+ --+ ------+| ?30-59 ?| ?Stage three ?| ? Stage three ? + --+ --+ ------+| ?15-29 ?| ?Stage four ? | ? Stage four ?+ ---+ ---+ -------+| ?<15 (or dialysis) ? ?| ?Stage five ? | ? Stage five ?+ ---+ ---+ -------+ *Each stage assumes the associated GFR level has been in effect for at least three months. ?Stages 1 to 5, with or without kidney disease, indicate chronic kidney disease. Notes: Determination of stages one and two (with eGFR >59mL/min/1.73 m2) requires estimation of kidney damage for at least three months as defined by structural or functional abnormalities of the kidney, manifested by either:Pathological abnormalities or Markers of kidney damage (including abnormalities in the composition of the blood or urine or abnormalities in imaging tests). Lab Interpretation Abnormal (test code = 38375-5) [facility]2020-09-13 10:22:00 Test Item Value Reference Range Interpretation Comments MAGNESIUM (test code = 1512790288) 2.5 mg/dL 1.7-2.4 H Lab Interpretation (test code = Abnormal 24070-7) [facility] HospitalTROPONIN [id number] 04:36:00 Test Item Value Reference Range Interpretation Comments TROPONIN I (test 0.028 ng/mL See_Comment [Automated code = 4150783920) message] The system which generated this result transmitted reference range : <=0.034. The reference range was not used to interpret this result as normal/abnormal . JALEEL (test code = Equal or Less than JALEEL) 0.034 ng/ml---Normal ?Note: Cardiac troponin begins to rise 3-4 hours after the onset of ischemia. Repeat in 4-6 hours if the sample was drawn within 3-4 hours of the onset of the symptom and found normal. Between 0.035 and 0.120 ng/mL--- Borderline. Questionable myocardial injury or necrosis ? ?Note: Serial measurement may be necessary to confirm or exclude the diagnosis of myocardial injury or necrosis; Clinical correlation (symptoms, EKGs, imaging studies, and others) required; Repeat in 4-6 hours if clinically indicated. ? Equal or Higher than 0.121 ng/mL---Abnormal. Myocardial Injury or Necrosis Likely ? Biotin has been reported to cause a negative bias, interpret results relative to patient's use of biotin. ? Lab Interpretation Normal (test code = 11877-9) [facility] HospitalFERRITIN [id number] 04:24:00 Test Item Value Reference Range Interpretation Comments FERRITIN (test code = 578.0 ng/mL 18-464 H 1141799057) JALEEL (test code = JALEEL) Biotin has been reported to cause a negative bias, interpret results relative to patient's use of biotin. Lab Interpretation (test Abnormal code = 89355-0) [facility] HospitalTHYROID STIMULATING [id number] 04:20:00 Test Item Value Reference Range Interpretation Comments TSH (test code = See_Comment [Automated message] 3128608286) The system Barcoding generated this result transmitted ref erence range: 0.45 - 4 .70 mIU/L. The refe rence range was not u sed to interpret this result as normal/abnor mal. Lab Interpretation (test Normal code = 80128-9) [facility] HospitalAMMONIA, [id number] 04:09:00 Test Item Value Reference Range Interpretation Comments AMMONIA (test code = 1227720657) <9 9-33 L Lab Interpretation (test code = Abnormal 87675-4) [facility] HospitalPHOSPHORUS2020-09-13 03:48:00 Test Item Value Reference Range Interpretation Comments PHOSPHORUS (test code = 1481719838) 6.1 mg/dL 2.5-5 H Lab Interpretation (test code = Abnormal 81900-5) [facility] HospitalN-TERMINAL [id number] 23:46:00 Test Item Value Reference Range Interpretation Comments NT-proBNP (test code 9360 pg/mL See_Comment H [Autom ated = 9984197670) message] The system which generated this result transmitted reference range : <=125. The reference range was not used to interpret this result as normal/abnormal . JALEEL (test code = JALEEL) Biotin has been reported to cause a negative bias, interpret results relative to patient's use of biotin. Lab Interpretation Abnormal (test code = 87830-0) [facility] HospitalCOVID-19 (ID NOW RAPID TESTING)2020-06-20 22:02:00 Test Item Value Reference Range Interpretation Comments SARS-CoV-2 Rapid ID NOW Not Detected Not Detected (test code = 92276-2) JALEEL (test code = JALEEL) ID NOW COVID-19 Assay is an isothermal nucleic acid amplification test intended for the qualitative detection of nucleic acid from SARS-CoV-2 viral RNA in nasopharyngeal ([employer] STAFF OFFICER) specimens. It is used under Emergency Use Authorization (EUA) by FDA. The limit of detection (LOD) of the assay is 125 Genome Equivalents/mL. A positive result is indicative of the presence of SARS-CoV-2 RNA. ?Clinical correlation with patient history and other diagnostic information is necessary to determine patient infection status. A negative (Not Detected) result does not preclude SARS-CoV-2 infection. In patients with clinical symptoms and other tests that are consistent with SARS-CoV-2 infection, negative results should be treated as presumptive negative and a new specimen should be tested with alternative PCR molecular test. Invalid: Please collect a new specimen for repeat patient testing if clinically indicated. Lab Interpretation Normal (test code = 36942-1) [facility]MAGN[facility]IUM2020-09-12 21:20:00 Test Item Value Reference Range Interpretation Comments MAGNESIUM (test code = 3354175265) 2.4 mg/dL 1.7-2.4 Lab Interpretation (test code = Normal 40171-7) [facility] HospitalTROPONIN [id number] 20:43:00 Test Item Value Reference Range Interpretation Comments TROPONIN I (test 0.024 ng/mL See_Comment [Automated code = 2031725665) message] The system which generated this result transmitted reference range : <=0.034. The reference range was not used to interpret this result as normal/abnormal . JALEEL (test code = Equal or Less than JALEEL) 0.034 ng/ml---Normal ?Note: Cardiac troponin begins to rise 3-4 hours after the onset of ischemia. Repeat in 4-6 hours if the sample was drawn within 3-4 hours of the onset of the symptom and found normal. Between 0.035 and 0.120 ng/mL--- Borderline. Questionable myocardial injury or necrosis ? ?Note: Serial measurement may be necessary to confirm or exclude the diagnosis of myocardial injury or necrosis; Clinical correlation (symptoms, EKGs, imaging studies, and others) required; Repeat in 4-6 hours if clinically indicated. ? Equal or Higher than 0.121 ng/mL---Abnormal. Myocardial Injury or Necrosis Likely ? Biotin has been reported to cause a negative bias, interpret results relative to patient's use of biotin. ? Lab Interpretation Normal (test code = 89070-9) [facility] HospitalCOMP. METABOLIC PANEL (31187)2020-06-20 20:32:00 Test Item Value Reference Range Interpretation Comments NA (test code = 130 mmol/L 135-145 L 7970881055) K (test code = 2.9 mmol/L 3.5-5 LL 1737388561) CL (test code = 91 mmol/L 98-108 L 0483114120) CO2 TOTAL (test code = 31 mmol/L 23-31 0742355256) AGAP (test code = 2-16 6051089174) BUN (test code = 37 mg/dL 7-23 H 5017004072) GLUCOSE (test code = 100 mg/dL 70-110 6098011633) CREATININE (test code = 11.00 mg/dL 0.6-1.25 H 0882225459) TOTAL BILI (test code = 0.7 mg/dL 0.1-1.1 6245740916) CALCIUM (test code = 9.4 mg/dL 8.6-10.6 8707386926) T PROTEIN (test code = 5.1 g/dL 6.3-8.2 L 2012887133) ALBUMIN (test code = 2.6 g/dL 3.5-5 L 4862147338) ALK PHOS (test code = 68 U/L 34-122 1551500123) ALTv (test code = 14 U/L 5-50 1742-6) AST(SGOT) (test code = 26 U/L 13-40 9794833987) eGFR Calculation mL/min/1.73m2 (Non-) (test code = 1112611619) eGFR Calculation mL/min/1.73m2 () (test code = 4912770958) JALEEL (test code = JALEEL) Association of Glomerular Filtration Rate (GFR) and Staging of Kidney Disease* + --+ --+ ------+| GFR (mL/min/1.73 m2) ?| With Kidney Damage ?| ?Without Kidney Damage+ --------+ --------+ +| ?>90 ?| ?Stage one ?| ? Normal ?+ ---+ ---+ -------+| ?60-89 ?| ?Stage two ?| ? Decreased GFR ? + --+ --+ ------+| ?30-59 ?| ?Stage three ?| ? Stage three ? + --+ --+ ------+| ?15-29 ?| ?Stage four ? | ? Stage four ?+ ---+ ---+ -------+| ?<15 (or dialysis) ? ?| ?Stage five ? | ? Stage five ?+ ---+ ---+ -------+ *Each stage assumes the associated GFR level has been in effect for at least three months. ?Stages 1 to 5, with or without kidney disease, indicate chronic kidney disease. Notes: Determination of stages one and two (with eGFR >59mL/min/1.73 m2) requires estimation of kidney damage for at least three months as defined by structural or functional abnormalities of the kidney, manifested by either:Pathological abnormalities or Markers of kidney damage (including abnormalities in the composition of the blood or urine or abnormalities in imaging tests). Lab Interpretation Abnormal (test code = 20822-9) [id number]:32:00 Test Item Value Reference Range Interpretation Comments LIPASE (test code = 9315733471) <10 0-220 Lab Interpretation (test code = Normal 19191-7) [facility]31:00 Test Item Value Reference Range Interpretation Comments APTT Patient (test See_Comment [Automat ed code = 3173-2) message] The system which generated this result transmitted reference range : 23 - 38 Seconds . The reference range was not used to interpr et this result as normal/abnormal . JALEEL (test code = JALEEL) The [facility] patient population mean normal value for aPTT is 30 seconds. Lab Interpretation Normal (test code = 52150-6) [facility] HospitalPROT[facility]OMBIN [facility] / [id number] 20:29:00 Test Item Value Reference Range Interpretation Comments PROTIME PATIENT (test See_Comment [Auto mated message] code = 5964-2) The system wh ich generated this result transmitted ref erence range: 12.0 - 1 4.7 Seconds. The re ference range was not u sed to interpret this result as normal/abnor mal. INR (test code = 6301-6) Nor mal INR <1.1; Warfarin Therap eutic range 2.0 to 3. 0 or 2.5 to 3.5, dep ending upon the indica tions. Lab Interpretation (test Normal code = 37364-8) [facility] HospitalCBC WITH [id number] 20:17:00 Test Item Value Reference Range Interpretation Comments WBC (test code = See_Comment [Automated 6690-2) message] The sy stem which generated this result transmitted reference range : 4.20 - 10.70 10*3/?L. The reference range was not used to interpret this result as normal/abnormal . RBC (test code = See_Comment L [Automated 789-8) message] The sy stem which generated this result transmitted reference range : 4.26 - 5.52 10*6/?L. The reference range was not used to interpret this result as normal/abnormal . HGB (test code = 8.1 g/dL 12.2-16.4 L 718-7) HCT (test code = 24.4 % 38.4-49.3 L 4544-3) MCV (test code = 85.9 fL 81.7-95.6 787-2) MCH (test code = 28.5 pg 26.1-32.7 785-6) MCHC (test code = 33.2 g/dL 31.2-35 786-4) RDW-SD (test code = 42.5 fL 38.5-51.6 84148-8) RDW-CV (test code = 13.6 % 12.1-15.4 788-0) PLT (test code = See_Comment [Automated 777-3) message] The sy stem which generated this result transmitted reference range : 150 - 328 10*3/ ?L. The reference r yared was not used to interpret this result as normal/abnormal . MPV (test code = 8.8 fL 9.8-13 L 54473-8) NRBC/100 WBC (test See_Comment [Automat ed code = 9090765847) message] The system which generated this result transmitted reference range : 0.0 - 10.0 /100 WBCs. The refer ence range was not u sed to interpret th is result as normal/abnormal . NRBC x10^3 (test code <0.01 See_Comment [Auto mated = 4005103779) message] The s ystem which generated this result transmitted reference range : 10*3/?L. The reference range was not used to interpret this result as normal/abnormal . GRAN MAT (NEUT) % 72.5 % (test code = 770-8) IMM GRAN % (test code 0.50 % = 4925797095) LYMPH % (test code = 14.8 % 736-9) MONO % (test code = 8.8 % 5905-5) EOS % (test code = 2.9 % 713-8) BASO % (test code = 0.5 % 706-2) GRAN MAT x10^3(ANC) 4.55 10*3/uL 1.99-6.95 (test code = 7580817559) IMM GRAN x10^3 (test 0.03 10*3/uL 0-0.06 code = 4623722474) LYMPH x10^3 (test code 0.93 10*3/uL 1.09-3.23 L = 731-0) MONO x10^3 (test code 0.55 10*3/uL 0.36-1.02 = 742-7) EOS x10^3 (test code = 0.18 10*3/uL 0.06-0.53 711-2) BASO x10^3 (test code 0.03 10*3/uL 0.01-0.09 = 704-7) Lab Interpretation Abnormal (test code = 35270-9) [facility] [id number] 20:04:45 No acute intrathoracic abnormality. Chest appears similar to prior exams.PROCEDURE: XR CHEST 1 VW CLINICAL INDICATION: chest pain COMPARISON: 03/26/2020 FINDINGS: The lungs are partial expanded and appear clear. Perihilar vessels areprominent. Lower lung zone linear opacities are likely atelectasis. Theright hemidiaphragm is mildly elevated.No pleural effusion or pneumothorax is seen. The cardiomedia stinal silhouette is borderline large.No acute bony abnormality. [facility], Radiant Results Inft User - 06/20/2020 3:05 PM CDTPROCEDURE: XR CHEST 1 VWCLINICAL INDICATION: chest pain COMPARISON: 03/26/2020FINDINGS:The lungs are partial expanded and appear clear. Perihilar vessels areprominent. Lower lung zone linear opacities are likely atelectasis. Theright hemidiaphragm is mildly elevated.No pleural effusion or pneumothorax is seen. The cardiomediastinal silhouette is borderline large.No acute bony abnormality.IMPRESSIONNo acute intrathoracic abnormality. Chest appears similar to prior exams.[facility] HospitalCHEM SLWNT1149-03-51 13:56:0097[facility] PANEL 2020-05-21 13:56:0041[facility]annCHEM EIFRK1211-69-02 13:56:0010.50[facility]annCHEM ZXRPP2631-01-24 13:56:50333Mmwerelq HermannCHEM GBLLV5074-95-62 13:56:003.2[facility]annCHEM OMDYS6496-96-24 13:56:0094[facility]annCHE[facility] FBFTD7542-02-82 13:56:0028[facility]annCHE[facility] QKZRM9102-79-94 13:56:009.5 [facility] UBTYT4421-22-69 13:56:0014.2[facility]annCHEM PANEL 2020-05-21 13:56:005[facility]CHE[facility] TBMAG6422-84-62 13:56:005.4[facility]annCHEM SLDZX6336-87-10 13:56:002.3[facility]annCHE[facility] XSJLN1007-74-44 13:56:0016[facility]annCHEM VHNCN1431-66-48 13:56:0026[facility]annCHEM KTKTL3021-70-72 13:56:0082[facility]annCHEM RPLSK0400-06-81 13:56:000.4 [facility] BRLQQ3340-92-51 13:56:000.1[facility]annCHEM PANEL 2020-05-21 13:56:000.3[facility]annCHEM ZSIVE2475-47-69 13:56:003.1[facility]annCHE[facility] DLMOJ0157-34-87 13:56:00 Test Item Value Reference Range Interpretation Comments A/G Ratio (test code = A/G Ratio) 0.7 1 0.7-1.6 [facility]CHE[facility] PPKQZ4157-24-58 13:56:0041[facility]annHEMATOLOGY 2020-05-21 13:56:005.3[facility] RidcyrqNZJNKTRPYJ5265-46-35 13:56:002.56[facility] YnvlrpzYYUTGYMYZI1065-69-19 13:56:007.6[facility] PetuyllLLFJIJZYBM2389-25-82 13:56:0021.8[facility] NxqbscqDZFTJFGCMI7292-94-42 13:56:0085.2[facility] QVNANKYQCC6149-25-86 13:56:00 Test Item Value Reference Range Interpretation Comments MCH (test code = MCH) 29.6 pg 27.0-31.0 [facility] RhwupnmIFGKVSITOH7011-03-59 13:56:0034.8[facility]annHEMATOLOGY 2020-05-21 13:56:0013.9[facility] YxixdhsDIENBDBTWA8847-71-33 13:56:64258Lrvkhdvi SkchtfmDXAUMFPHMB8137-10-69 13:56:007.1[facility] VglwrxyVYFFAUGTRC2195-57-20 13:56:0067.4[facility] FhtgiifWWNBQVFAHN6017-81-16 13:56:0015.2[facility] WEWXGUQOXE3914-04-92 13:56:008.6[facility] PdrionvTNRCWJWMJQ4110-45-16 13:56:007.8 [facility] AgnvbviCZSFFVBRXD6047-21-95 13:56:001.0[facility]annHEMATOLOGY 2020-05-21 13:56:003.6[facility] ZeyygxfZXBWZFZWRV2128-41-28 13:56:000.8[facility] GirbczkILUSLJUTHQ7137-16-43 13:56:000.5[facility] KqbjfiaPPMVXSOAEB8525-57-32 13:56:000.4[facility] FdqrvgkUAVXGZJCRJ2923-64-23 13:56:000.1[facility] FVZMQEYRNK9164-28-78 13:56:007.6[facility] NloqimjWGMVBIXZRG6273-99-36 13:56:00 21.8[facility] ZqmprxoRLUKWDYPEM7365-35-53 13:56:0085.2[facility]annHEMATOLOGY 2020-05-21 13:56:00 Test Item Value Reference Range Interpretation Comments MCH (test code = MCH) 29.6 pg 27.0-31.0 [facility] CkbqmzoNGAFHQRRRY9780-17-28 13:56:0034.8[facility]annHEMATOLOGY 2020-05-21 13:56:0013.9[facility] CzxqocyEVEZBVSDFA6837-50-85 13:56:79475Jkpkkurk LkxwiyaLXQMQSXRPX6807-57-07 13:56:007.1[facility] BxpsbanCBADSXPRSM0948-69-60 13:56:0067.4[facility] RrmqlddQFBFZOVZTT0994-53-68 13:56:0015.2[facility] LEERBESPKZ1783-45-92 13:56:008.6[facility] ZblfmkpDNHXRXOSHT4613-32-90 13:56:007.8 [facility] HyzdvqgZXDCKBODMO1198-82-69 13:56:001.0[facility]annHEMATOLOGY 2020-05-21 13:56:003.6[facility] FjwzbzoSZTHKCTBPF6246-36-44 13:56:000.8[facility] ZczekqfYUXJNGRPDH1308-64-22 13:56:000.5[facility] DkxdzpxZFNOOKSXEJ4073-88-09 13:56:000.4[facility] HdabltxDDGCYKBVJF2446-11-95 13:56:000.1[facility]annCHEM AOCBW8827-25-08 13:56:0097[facility]annCHEM MGVQP0494-30-93 13:56:0041 [facility]CHE[facility] GKGRU1560-81-86 13:56:0010.50[facility]annCHEM PANEL 2020-05-21 13:56:38910Zwybmgeh HermannCHEM TRASG2814-58-83 13:56:003.2[facility]annCHEM RUQAK8839-26-14 13:56:0094[facility]annCHEM VZGXX4586-92-91 13:56:0028[facility]annCHE[facility] HZGPG9147-77-87 13:56:009.5[facility]annCHEM OFDIF5480-60-83 13:56:0014.2[facility]annCHEM IKZYK5919-93-08 13:56:005 [facility]CHE[facility] TIPXM4030-86-44 13:56:005.4[facility]annCHEM PANEL 2020-05-21 13:56:002.3[facility]annCHEM MKCIN4757-27-28 13:56:0016[facility]annCHEM PVUWA2353-73-54 13:56:0026[facility]annCHEM TQFXM7668-89-85 13:56:0082[facility]annCHE[facility] PWXCB5269-39-80 13:56:000.4[facility]annCHE[facility] YCPPP4303-89-49 13:56:000.1[facility]annCHEM AIUAD9333-34-68 13:56:000.3 [facility]CHE[facility] LGZOB9431-25-92 13:56:003.1[facility]annCHEM PANEL 2020-05-21 13:56:00 Test Item Value Reference Range Interpretation Comments A/G Ratio (test code = A/G Ratio) 0.7 1 0.7-1.6 [facility]CHE[facility] ZENCB0986-42-20 13:56:0041[facility]annHEMATOLOGY 2020-05-21 13:56:005.3[facility] OftjvpwIVZEYVCRYO9806-84-62 13:56:002.56[facility] TlcjomkJKTTQOSPUG3646-41-11 13:56:007.6[facility] BvpxxhkTLPLELOHQL0846-13-88 13:56:0021.8[facility] CidjrroUVLSTCGYEL0062-34-71 13:56:0085.2[facility] OETCHVEVCM1883-43-38 13:56:00 Test Item Value Reference Range Interpretation Comments MCH (test code = MCH) 29.6 pg 27.0-31.0 [facility] SrqedadVHCKNPNVYO0076-63-45 13:56:0034.8[facility]annHEMATOLOGY 2020-05-21 13:56:0013.9[facility] XwstiltSVBFWMHWPS4140-88-11 13:56:19649Lcidhlhi PhvkhssYEYFXZEAZG1189-84-57 13:56:007.1[facility] CzmlqoiNOTSUVFBUU2790-02-76 13:56:0067.4[facility] GziysqlHUROCCTMDQ0548-82-32 13:56:0015.2[facility] BSLOEUGGZK5314-13-94 13:56:008.6[facility] RxfcnlxLGMJCVBYJS5479-44-48 13:56:007.8 [facility] GktogrqWXVDLVCKNR5350-07-65 13:56:001.0[facility]annHEMATOLOGY 2020-05-21 13:56:003.6[facility] FxfkvumJQTVPISTZD7285-70-02 13:56:000.8[facility] XyhqiemRXGVKOCPNJ3539-74-65 13:56:000.5[facility] SdkdmdrRGMDEWALHI9561-29-27 13:56:000.4[facility] CwiadhkOUINWYUYHV6940-63-17 13:56:000.1[facility]annCHEM MQPXY1155-43-71 13:56:0097[facility]annCHEM LOBBJ1358-56-73 13:56:0041 [facility]annCHE[facility] DEGQY9606-00-18 13:56:0010.50[facility]annCHEM PANEL 2020-05-21 13:56:71659Moenjiyk HermannCHEM OWPUQ4965-96-44 13:56:003.2[facility]annCHEM TABVY9748-81-95 13:56:0094[facility]annCHEM NNCNF3587-56-81 13:56:0028[facility]annCHEM XVLAH7386-62-54 13:56:009.5[facility]annCHEM MOMMA3927-23-66 13:56:0014.2[facility]annCHEM KOEKH6637-80-44 13:56:005 [facility]annCHE[facility] VBUOW0289-92-35 13:56:005.4[facility]annCHEM PANEL 2020-05-21 13:56:002.3[facility]annCHEM HWWRY3117-45-89 13:56:0016[facility]annCHEM AVTIP0312-32-15 13:56:0026[facility]annCHE[facility] PTTQT8836-95-11 13:56:0082[facility]annCHEM ZEZSA6342-38-51 13:56:000.4[facility]annCHEM TCNRI8180-91-28 13:56:000.1[facility]annCHEM RSDPE1615-61-08 13:56:000.3 [facility]CHE[facility] EFWZV4204-19-13 13:56:003.1[facility]annCHEM PANEL 2020-05-21 13:56:00 Test Item Value Reference Range Interpretation Comments A/G Ratio (test code = A/G Ratio) 0.7 1 0.7-1.6 [facility]annCHE[facility] IHBOL7220-18-51 13:56:0041[facility]annHEMATOLOGY 2020-05-21 13:56:005.3[facility] DvsatqfPTYVWUHSDL5603-08-64 13:56:002.56[facility] HermannCT ABDOMEN PELVIS W WO QPHWMTCZ9318-72-52 20:59:48 Significant interval decrease in size of the previously noted suspectedabscess in the liver segment . Trace residual collection is seen in thisregion with small subcapsular collection also noted along the inferiorhepatic margin, not clearly demonstrated on the prior exam. Advanced renal cortical atrophy with a small exophytic lesion along theleft interpolar region, indeterminate but unchanged. A dedicated CT/MRIrenal mass protocol may be obtained for further evaluation. Preliminary Report Dictated by Resident: Meliton Phelps I, Adelia Gibbs MD., have reviewed this study and agree with theabove report.CT ABDOMEN PELVIS W WO CONTRAST HISTORY: 59 years-old; Male; hypodensity in segment COMPARISON: 03/27/2020 TECHNIQUE AND FINDINGS: Contiguous axial imaging from the level of the lungbases through the pubic symphysis was performed before and after theuncomplicated administration of 150 cc of intravenous Omnipaque contrast.Coronal and sagittal reconstructions were obtained. ?Auto mA an d/oriterative reconstruction were used to reduce radiation dose. FINDINGS: LOWER THORAX: The lung bases are clear. Left atrial dilatation measuring upto 5.7 cm in AP diameter. LIVER: The liver is enlarged measuring 20 cm craniocaudally, otherwisenormal in contour. There is significant interval decrease in size of thepreviously noted low attenuated nonenhancing structure in the liver segmentVI measuring 2.6 x 0.7 cm (7:50), previously measured 3.4 x 2.5 cm. A small subcapsular fluid collection is noted along the inferior margin ofthe 5/6 hepatic segment (605:45) measuring 2.0 x 0.9 cm, new since priorexam (reference to 66:123 compared with 602:107 on the previous exam). GALLBLADDER AND BILIARY TREE: Cholecystectomy. No intra or extrahepaticbiliary ductal dilatation. SPLEEN: Mildly enlarged measuring approximately 15 cm craniocaudally. PANCREAS: No ductal dilation or masses. ADRENAL GLANDS: Right adrenal nodule with intralesional density of 8Hounsfield units suggestive for benign adenoma measures1.1 cm (3:36).Findings are unchanged at least from July 2019. Unremarkable leftadrenal gland. KIDNEYS: Atrophic bilateral kidneys are noted. 1 cm partially exophyticenhancing lesion in the left interpolar region (6:52). Precontrastattenuation slightly higher than simple fluid. This is not substantia llychanged since the prior 2018 exam. There is no hydronephrosis or stones. PERITONEUM AND RETROPERITONEUM: No free air. Trace perihepatic andperisplenic free fluid is noted. LYMPH NODES: No intra-abdominal or pelvic lymph node enlargement. GI TRACT: No dilation or bowel wall thickening. Appendix is normal. PELVIS/BLADDER: Bladder is mildly distended and is unremarkable for thedegree of distention. The prostate is mildly enlarged with an approximatevolume of 38 mL. VESSELS: Moderate scattered atherosclerotic calcification of theabdominopelvic vasculature. BONES AND SOFT TISSUES: No suspicious lyticor sclerotic bony lesions. Lines/Tubes/Devices/Hardware: Peritoneal dialysis catheter terminates inthe mid lower abdomen. [facility], Radiant Results Inft User - 04/28/2020 4:00 PM CDTCT ABDOMEN PELVIS W WOCONTRASTHISTORY: 59 years-old; Male; hypodensity in segment COMPARISON: 03/27/2020TECHNIQUE AND FINDINGS: Contiguous axial imaging from the level of the lungbases through the pubic symphysis was performed before and after theuncomplicated administration of 150 cc of intravenous Omnipaque contrast.Coronal and sagittal reconstructions were obtained. Auto mA and/oriterative reconstruction were used to reduce radiation dose.FINDINGS:LOWER THORAX: The lung bases are clear. Left atrial dilatation measuring upto 5.7 cm in AP diameter.LIVER: The liver is enlarged measuring 20 cm craniocaudally, otherwisenormal in contour. There is significant interval decrease in size of thepreviously noted low attenuated nonenhancing structure in the liver segmentVI measuring 2.6 x 0.7 cm (7:50), previously measured 3.4 x 2.5 cm.A small subcapsular fluid collection is noted along the inferior margin ofthe 5/6 hepatic segment (605:45) measuring 2.0 x 0.9 cm, new since priorexam (reference to 66:123 compared with 602:107 on the previous exam).GALLBLADDER AND BILIARY TREE: Cholecystectomy. No intra or extrahepaticbiliary ductal dilatation.SPLEEN: Mildly enlarged measuring approximately 15 cm craniocaudally.PANCREAS:No ductal dilation or masses.ADRENAL GLANDS: Right adrenal nodule with intralesional density of 8Hounsfield units suggestive for benign adenoma measures 1.1 cm (3:36).Findings are unchanged at least from July 2019. Unremarkable leftadrenal gland.KIDNEYS: Atrophic bilateral kidneys are noted. 1 cm partially exophyticenhancing lesion in the left interpolar region (6:52). Precontrastattenuation slightly higher than simple fluid. This is not substantiallychanged since the prior 2019 exam. There is nohydronephrosis or stones.PERITONEUM AND RETROPERITONEUM: No free air. Trace perihepatic andperisplenic free fluid is noted.LYMPH NODES: No intra-abdominal or pelvic lymph node enlargement.GI TRACT: No dilation or bowel wall thickening. Appendix is normal.PELVIS/BLADDER: Bladder is mildly distended andis unremarkable for thedegree of distention. The prostate is mildly enlarged with an approximatevolume of 38 mL.VESSELS: Moderate scattered atherosclerotic calcification of theabdominopelvic vasculature.BONES AND SOFT TISSUES: No suspicious lytic or sclerotic bony lesions.Lines/Tubes/Devices/Hardware: Peritoneal dialysis catheter terminates inthe mid lower abdomen.IMPRESSIONSignificant interval decrease in size of the previously noted suspectedabscess in the liver segment . Trace residual collection is seen in thisregion with small subcapsular collection also noted along the inferiorhepatic margin, not clearly demonstrated on the prior exam.Advanced renal cortical atrophy with a small exophytic lesion along theleft interpolar region, indeterminate but unchanged. A dedicated CT/MRIrenal mass protocol may be obtained for further evaluation.Preliminary Report Dictated by Resident: Adelia Shields MD., have reviewed this study and agree with theabove report.[facility] (NA, K, CL, CO2, GLUCOSE, BUN, CREATININE, CA)2020-03-30 11:53:00 Test Item Value Reference Range Interpretation Comments NA (test code = 130 mmol/L 135-145 L 6648902084) K (test code = 4.5 mmol/L 3.5-5 6568919878) CL (test code = 96 mmol/L 98-108 L 5396688044) CO2 TOTAL (test code = 28 mmol/L 23-31 4396528225) AGAP (test code = 2-16 8162726742) BUN (test code = 35 mg/dL 7-23 H 1617666461) GLUCOSE (test code = 96 mg/dL 70-110 6730223964) CREATININE (test code = 10.23 mg/dL 0.6-1.25 H 2290740255) CALCIUM (test code = 9.1 mg/dL 8.6-10.6 2165105881) eGFR Calculation mL/min/1.73m2 (Non-) (test code = 9673389846) eGFR Calculation mL/min/1.73m2 () (test code = 2288593142) JALEEL (test code = JALEEL) Association of Glomerular Filtration Rate (GFR) and Staging of Kidney Disease* + --+ --+ ------+| GFR (mL/min/1.73 m2) ?| With Kidney Damage ?| ?Without Kidney Damage+ --------+ --------+ +| ?>90 ?| ?Stage one ?| ? Normal ?+ ---+ ---+ -------+| ?60-89 ?| ?Stage two ?| ? Decreased GFR ? + --+ --+ ------+| ?30-59 ?| ?Stage three ?| ? Stage three ? + --+ --+ ------+| ?15-29 ?| ?Stage four ? | ? Stage four ?+ ---+ ---+ -------+| ?<15 (or dialysis) ? ?| ?Stage five ? | ? Stage five ?+ ---+ ---+ -------+ *Each stage assumes the associated GFR level has been in effect for at least three months. ?Stages 1 to 5, with or without kidney disease, indicate chronic kidney disease. Notes: Determination of stages one and two (with eGFR >59mL/min/1.73 m2) requires estimation of kidney damage for at least three months as defined by structural or functional abnormalities of the kidney, manifested by either:Pathological abnormalities or Markers of kidney damage (including abnormalities in the composition of the blood or urine or abnormalities in imaging tests). Lab Interpretation Abnormal (test code = 10837-4) [facility] Test Item Value Reference Range Interpretation Comments MAGNESIUM (test code = 6534531034) 2.3 mg/dL 1.7-2.4 Lab Interpretation (test code = Normal 64388-4) [facility]US2020-06-22 11:53:00 Test Item Value Reference Range Interpretation Comments PHOSPHORUS (test code = 2059552438) 4.6 mg/dL 2.5-5 Lab Interpretation (test code = Normal 35811-7) [facility]BL[facility] C[facility]URE [id number] 20:02:00 Test Item Value Reference Range Interpretation Comments Blood Culture-Aerobic No organisms No growth Previo us (test code = 18233-9) isolated prelim inary verified result was Culture In Progress on 03/24/2020 at 18 01 CDTPrevious preliminary verified result was No growth a t 24 hours on 03/25/2020 at 15 01 CDTPrevious preliminary verified result was No growth a t 48 hours on 03/26/2020 at 15 01 CDTPrevious preliminary verified result was No growth a t 72 hours on 03/27/2020 at 15 01 CDT Blood No organisms No growth Previous Culture-Anaerobic isolated preliminar y (test code = 53403-2) verifi ed result was Culture In Progress on 03/24/2020 at 18 01 CDTPrevious preliminary verified result was No growth a t 24 hours on 03/25/2020 at 15 01 CDTPrevious preliminary verified result was No growth a t 48 hours on 03/26/2020 at 15 01 CDTPrevious preliminary verified result was No growth a t 72 hours on 03/27/2020 at 15 01 CDT Lab Interpretation Normal (test code = 52009-2) [facility] CULTURE [id number] 20:02:00 Test Item Value Reference Range Interpretation Comments Blood Culture-Aerobic No organisms No growth Previo us (test code = 72586-8) isolated prelim inary verified result was Culture In Progress on 03/24/2020 at 18 01 CDTPrevious preliminary verified result was No growth a t 24 hours on 03/25/2020 at 15 01 CDTPrevious preliminary verified result was No growth a t 48 hours on 03/26/2020 at 15 01 CDTPrevious preliminary verified result was No growth a t 72 hours on 03/27/2020 at 15 01 CDT Blood No organisms No growth Previous Culture-Anaerobic isolated preliminar y (test code = 22501-4) verifi ed result was Culture In Progress on 03/24/2020 at 18 01 CDTPrevious preliminary verified result was No growth a t 24 hours on 03/25/2020 at 15 01 CDTPrevious preliminary verified result was No growth a t 48 hours on 03/26/2020 at 15 01 CDTPrevious preliminary verified result was No growth a t 72 hours on 03/27/2020 at 15 01 CDT Lab Interpretation Normal (test code = 03870-2) [facility] WITH [id number] 11:50:00 Test Item Value Reference Range Interpretation Comments WBC (test code = See_Comment [Automated 6690-2) message] The sy stem which generated this result transmitted reference range : 4.20 - 10.70 10*3/?L. The reference range was not used to interpret this result as normal/abnormal . RBC (test code = See_Comment L [Automated 789-8) message] The sy stem which generated this result transmitted reference range : 4.26 - 5.52 10*6/?L. The reference range was not used to interpret this result as normal/abnormal . HGB (test code = 7.8 g/dL 12.2-16.4 L 718-7) HCT (test code = 23.7 % 38.4-49.3 L 4544-3) MCV (test code = 89.1 fL 81.7-95.6 787-2) MCH (test code = 29.3 pg 26.1-32.7 785-6) MCHC (test code = 32.9 g/dL 31.2-35 786-4) RDW-SD (test code = 47.4 fL 38.5-51.6 52477-8) RDW-CV (test code = 15.1 % 12.1-15.4 788-0) PLT (test code = See_Comment [Automated 777-3) message] The sy stem which generated this result transmitted reference range : 150 - 328 10*3/ ?L. The reference r yared was not used to interpret this result as normal/abnormal . MPV (test code = 9.3 fL 9.8-13 L 92343-5) NRBC/100 WBC (test See_Comment [Automat ed code = 8951203218) message] The system which generated this result transmitted reference range : 0.0 - 10.0 /100 WBCs. The refer ence range was not u sed to interpret th is result as normal/abnormal . NRBC x10^3 (test code <0.01 See_Comment [Auto mated = 1850974475) message] The s ystem which generated this result transmitted reference range : 10*3/?L. The reference range was not used to interpret this result as normal/abnormal . GRAN MAT (NEUT) % 73.9 % (test code = 770-8) IMM GRAN % (test code 2.80 % = 1145551513) LYMPH % (test code = 11.3 % 736-9) MONO % (test code = 7.7 % 5905-5) EOS % (test code = 3.5 % 713-8) BASO % (test code = 0.8 % 706-2) GRAN MAT x10^3(ANC) 4.83 10*3/uL 1.99-6.95 (test code = 5102209916) IMM GRAN x10^3 (test 0.18 10*3/uL 0-0.06 H code = 4676312673) LYMPH x10^3 (test code 0.74 10*3/uL 1.09-3.23 L = 731-0) MONO x10^3 (test code 0.50 10*3/uL 0.36-1.02 = 742-7) EOS x10^3 (test code = 0.23 10*3/uL 0.06-0.53 711-2) BASO x10^3 (test code 0.05 10*3/uL 0.01-0.09 = 704-7) Lab Interpretation Abnormal (test code = 57318-5) [facility] METABOLIC PANEL (NA, K, CL, CO2, GLUCOSE, BUN, CREATININE, CA)2020-03-29 11:30:00 Test Item Value Reference Range Interpretation Comments NA (test code = 131 mmol/L 135-145 L 1433904897) K (test code = 4.1 mmol/L 3.5-5 6643720589) CL (test code = 96 mmol/L 98-108 L 8470389927) CO2 TOTAL (test code = 28 mmol/L 23-31 8189253831) AGAP (test code = 2-16 7211611508) BUN (test code = 26 mg/dL 7-23 H 9682383352) GLUCOSE (test code = 84 mg/dL 70-110 1544067900) CREATININE (test code = 7.98 mg/dL 0.6-1.25 H 7145306101) CALCIUM (test code = 9.4 mg/dL 8.6-10.6 2949295295) eGFR Calculation mL/min/1.73m2 (Non-) (test code = 4533245744) eGFR Calculation mL/min/1.73m2 () (test code = 1832231908) JALEEL (test code = JALEEL) Association of Glomerular Filtration Rate (GFR) and Staging of Kidney Disease* + --+ --+ ------+| GFR (mL/min/1.73 m2) ?| With Kidney Damage ?| ?Without Kidney Damage+ --------+ --------+ +| ?>90 ?| ?Stage one ?| ? Normal ?+ ---+ ---+ -------+| ?60-89 ?| ?Stage two ?| ? Decreased GFR ? + --+ --+ ------+| ?30-59 ?| ?Stage three ?| ? Stage three ? + --+ --+ ------+| ?15-29 ?| ?Stage four ? | ? Stage four ?+ ---+ ---+ -------+| ?<15 (or dialysis) ? ?| ?Stage five ? | ? Stage five ?+ ---+ ---+ -------+ *Each stage assumes the associated GFR level has been in effect for at least three months. ?Stages 1 to 5, with or without kidney disease, indicate chronic kidney disease. Notes: Determination of stages one and two (with eGFR >59mL/min/1.73 m2) requires estimation of kidney damage for at least three months as defined by structural or functional abnormalities of the kidney, manifested by either:Pathological abnormalities or Markers of kidney damage (including abnormalities in the composition of the blood or urine or abnormalities in imaging tests). Lab Interpretation Abnormal (test code = 46368-0) [facility] Test Item Value Reference Range Interpretation Comments MAGNESIUM (test code = 7266293704) 2.3 mg/dL 1.7-2.4 Lab Interpretation (test code = Normal 36946-3) [facility] Test Item Value Reference Range Interpretation Comments PHOSPHORUS (test code = 3278506716) 4.4 mg/dL 2.5-5 Lab Interpretation (test code = Normal 16495-9) [facility]81[facility] (ALB,T.PRO,BILI T,BU/BC,ALT,AST,ALK PHOS)2020-03-28 19:02:00 Test Item Value Reference Range Interpretation Comments TOTAL BILI (test code = 4328093880) 0.4 mg/dL 0.1-1.1 BILI UNCON (test code = 3569997519) 0.5 mg/dL 0.1-1.1 BILI CONJ (test code = 7699339572) 0.0 mg/dL 0-0.3 T PROTEIN (test code = 5282721608) 5.5 g/dL 6.3-8.2 L ALBUMIN (test code = 7345821287) 2.9 g/dL 3.5-5 L ALK PHOS (test code = 5948058650) 95 U/L 34-122 ALTv (test code = 1742-6) 15 U/L 5-50 AST(SGOT) (test code = 9356077954) 30 U/L 13-40 Lab Interpretation (test code = Abnormal 03450-2) [facility] (NA, K, CL, CO2, GLUCOSE, BUN, CREATININE, CA)2020-03-28 11:24:00 Test Item Value Reference Range Interpretation Comments NA (test code = 132 mmol/L 135-145 L 3828477493) K (test code = 4.1 mmol/L 3.5-5 7045469846) CL (test code = 95 mmol/L 98-108 L 9998059447) CO2 TOTAL (test code = 27 mmol/L 23-31 2120616602) AGAP (test code = 2-16 3763349131) BUN (test code = 39 mg/dL 7-23 H 2190734022) GLUCOSE (test code = 83 mg/dL 70-110 8564706068) CREATININE (test code = 9.62 mg/dL 0.6-1.25 H 8047224893) CALCIUM (test code = 8.8 mg/dL 8.6-10.6 4039452503) eGFR Calculation mL/min/1.73m2 (Non-) (test code = 1477188947) eGFR Calculation mL/min/1.73m2 () (test code = 1825970947) JALEEL (test code = JALEEL) Association of Glomerular Filtration Rate (GFR) and Staging of Kidney Disease* + --+ --+ ------+| GFR (mL/min/1.73 m2) ?| With Kidney Damage ?| ?Without Kidney Damage+ --------+ --------+ +| ?>90 ?| ?Stage one ?| ? Normal ?+ ---+ ---+ -------+| ?60-89 ?| ?Stage two ?| ? Decreased GFR ? + --+ --+ ------+| ?30-59 ?| ?Stage three ?| ? Stage three ? + --+ --+ ------+| ?15-29 ?| ?Stage four ? | ? Stage four ?+ ---+ ---+ -------+| ?<15 (or dialysis) ? ?| ?Stage five ? | ? Stage five ?+ ---+ ---+ -------+ *Each stage assumes the associated GFR level has been in effect for at least three months. ?Stages 1 to 5, with or without kidney disease, indicate chronic kidney disease. Notes: Determination of stages one and two (with eGFR >59mL/min/1.73 m2) requires estimation of kidney damage for at least three months as defined by structural or functional abnormalities of the kidney, manifested by either:Pathological abnormalities or Markers of kidney damage (including abnormalities in the composition of the blood or urine or abnormalities in imaging tests). Lab Interpretation Abnormal (test code = 03144-9) [facility] 11:24:00 Test Item Value Reference Range Interpretation Comments MAGNESIUM (test code = 2404026489) 2.4 mg/dL 1.7-2.4 Lab Interpretation (test code = Normal 47747-5) [facility] 11:24:00 Test Item Value Reference Range Interpretation Comments PHOSPHORUS (test code = 5393910935) 4.8 mg/dL 2.5-5 Lab Interpretation (test code = Normal 32071-7) [facility] WITH [id number] 10:58:00 Test Item Value Reference Range Interpretation Comments WBC (test code = See_Comment [Automated 6690-2) message] The sy stem which generated this result transmitted reference range : 4.20 - 10.70 10*3/?L. The reference range was not used to interpret this result as normal/abnormal . RBC (test code = See_Comment L [Automated 789-8) message] The sy stem which generated this result transmitted reference range : 4.26 - 5.52 10*6/?L. The reference range was not used to interpret this result as normal/abnormal . HGB (test code = 7.5 g/dL 12.2-16.4 L 718-7) HCT (test code = 23.0 % 38.4-49.3 L 4544-3) MCV (test code = 89.5 fL 81.7-95.6 787-2) MCH (test code = 29.2 pg 26.1-32.7 785-6) MCHC (test code = 32.6 g/dL 31.2-35 786-4) RDW-SD (test code = 47.8 fL 38.5-51.6 81138-5) RDW-CV (test code = 15.2 % 12.1-15.4 788-0) PLT (test code = See_Comment [Automated 777-3) message] The sy stem which generated this result transmitted reference range : 150 - 328 10*3/ ?L. The reference r yared was not used to interpret this result as normal/abnormal . MPV (test code = 9.0 fL 9.8-13 L 07009-0) NRBC/100 WBC (test See_Comment [Automat ed code = 2709645173) message] The system which generated this result transmitted reference range : 0.0 - 10.0 /100 WBCs. The refer ence range was not u sed to interpret th is result as normal/abnormal . NRBC x10^3 (test code <0.01 See_Comment [Auto mated = 6458527977) message] The s ystem which generated this result transmitted reference range : 10*3/?L. The reference range was not used to interpret this result as normal/abnormal . GRAN MAT (NEUT) % 70.6 % (test code = 770-8) IMM GRAN % (test code 1.80 % = 1012399822) LYMPH % (test code = 11.2 % 736-9) MONO % (test code = 8.9 % 5905-5) EOS % (test code = 6.9 % 713-8) BASO % (test code = 0.6 % 706-2) GRAN MAT x10^3(ANC) 4.84 10*3/uL 1.99-6.95 (test code = 4979503125) IMM GRAN x10^3 (test 0.12 10*3/uL 0-0.06 H code = 3644492673) LYMPH x10^3 (test code 0.77 10*3/uL 1.09-3.23 L = 731-0) MONO x10^3 (test code 0.61 10*3/uL 0.36-1.02 = 742-7) EOS x10^3 (test code = 0.47 10*3/uL 0.06-0.53 711-2) BASO x10^3 (test code 0.04 10*3/uL 0.01-0.09 = 704-7) Lab Interpretation Abnormal (test code = 92280-3) [facility] B Surface Antibody (HBsAb)2020-03-27 23:22:00 Test Item Value Reference Range Interpretation Comments HBsAB (test code = Positive 4086955738) HBsAb mIU/mL Semi-Quantitative (test code = 0495157233) JALEEL (test code = Interpretation: JALEEL) ?Hepatitis B Surface Antibody ? Negative - Patient is considered to be not immune to infection with HBV. ? ? Positive - Anti-HBs detected at greater than or equal to 12 mIU/mL. ?Patient is considered to be immune to infection with HBV. ? [facility] B Surface Antigen (HBsAg)2020-03-27 23:04:00 Test Item Value Reference Range Interpretation Comments HBsAg Semi-Quantitative (test code = Negative Negative 5195-3) [facility] [id number] 19:16:24 1. ?Interval development of nonenhancing, hypodensity within hepaticsegment measuring 2.5 x 3.4 x 4.3 cm adjacent to the gallbladder fossa.Irregular thick enhancing wall and surrounding hyperemia suggest abscessformation. 2. ?Right upper quadrant pigtail catheter. Prior cholecystectomy.Hepatosplenomegaly. Minimal perihepatic free fluid. Preliminary Report Dictated by Resident: Juany Mcrae?MD Jen., have reviewed this study and agree with theabove report.EXAM: CT ABDOMEN PELVIS W WOCONTRAST HISTORY: liver hypodnesity concerning for mass Liver protocol, evaluationfor hepatic mass. 59-year-old man status post laparoscopic cholecystectomyon 03/05/2020. COMPARISON: Abdominal CT-03/23/2020, 07/10/2019. DOSE: 1033.89 mGy*cm TECHNIQUE AND FINDINGS: Contiguous axial imaging from the level of the lungbases through the pubic symphysis was performed after the uncomplicatedadministration of 120 cc of intravenous Omnipaque contrast. Coronal andsagittal reconstructions were obtained. ?Auto mA and/or iterativereconstruction were used to reduce radiation dose. FINDINGS: LOWER THORAX: Bilateral lower lobes subsegmental atelectasis. The heart isenlarged. Cardiac pacemaker wires are partially visu alized. LIVER: The liver is enlarged, with normal contour. A hepatic segment VIII 5mm hypodense lesion, similar to prior study. Interval development ofhepatic segment nonenhancing, hypodensity measuring 2.5 x 3.4 x 4.3 cm(304:45 and 601:66), adjacent to and possibly communicating with thegallbladder fossa. GALLBLADDER AND BILIARY TREE: No biliary ductal dilation. Status postcholecystectomy. PANCREAS: No ductal dilation or masses. SPLEEN: No splenomegaly. ADRENAL GLANDS: Nodular contour of the left adrenal gland, similar to priorstudy. KIDNEYS: No hydronephrosis, or stones. Left interpolar hypodense lesionmeasuring 1.9 cm, likely reflecting cyst and unchanged. Additional leftlower pole 0.8 cm exophytic lesion also appears similar to prior study andlikely reflecting a hemorrhagic/proteinaceous cyst. PERITONEUM AND RETROPERITONEUM: No free air. Small amount of free fluid isseen within the right paracolic gutter. A peritoneal dialysis catheter isseen within the right hemiabdomen. LYMPH NODES: Nolymphadenopathy. VESSELS: Atherosclerotic disease of the abdominal aorta and its branches. GI TRACT:No dilation or wall thickening. Normal appendix. PELVIS/BLADDER: Normal. BONES AND SOFT TISSUES: No suspicious lytic or sclerotic bony lesions. Softtissues are unremarkable. [facility], Radiant Results InftUser - 03/27/2020 2:17 PM CDTEXAM: CT ABDOMEN PELVIS W WO CONTRASTHISTORY: liver hypodnesity concerning for mass Liver protocol, evaluationfor hepatic mass. 59-year-old man status post laparoscopic cho lecystectomyon 03/05/2020.COMPARISON: Abdominal CT-03/23/2020, 07/10/2019.DOSE: 1033.89 mGy*cmTECHNIQUEAND FINDINGS: Contiguous axial imaging from the level of the lungbases through the pubic symphysis was performed after the uncomplicatedadministration of 120 cc of intravenous Omnipaque contrast. Coronal andsagittal reconstructions were obtained. Auto mA and/or iterativereconstruction were used to reduce radiation dose.FINDINGS:LOWER THORAX: Bilateral lower lobes subsegmental atelectasis. The heart isenlarged. Cardiac pacemaker wires are partially visualized.LIVER: The liver is enlarged, with normal contour. A hepatic segment VIII 5mm hypodense lesion, similar to prior study. Interval development ofhepatic segment nonenhancing, hypodensity measuring 2.5 x 3.4 x 4.3 cm(304:45 and 601:66), adjacent to and possibly communicating with thegallbladder fossa.GALLBLADDER AND BILIARY TREE: No biliary ductal dilation. Status postcholecystectomy.PANCREAS: No ductal dilation or masses.SPLEEN: No splenomegaly.ADRENAL GLANDS: Nodular contour of the left adrenal gland, similar to priorstudy.KIDNEYS: No hydronephrosis, or stones. Left interpolar hypodense lesionmeasuring 1.9 cm, likely reflecting cyst and unchanged. Additional leftlower pole 0.8 cm exophytic lesion also appears similar to prior study andlikely reflecting a hemorrhagic/proteinaceous cyst.PERITONEUM AND RETROPERITONEUM: No free air. Smallamount of free fluid isseen within the right paracolic gutter. A peritoneal dialysis catheter isseen within the right hemiabdomen.LYMPH NODES: No lymphadenopathy.VESSELS: Atherosclerotic disease of theabdominal aorta and its branches.GI TRACT: No dilation or wall thickening. Normal appendix.PELVIS/BLADDER: Normal.BONES AND SOFT TISSUES: No suspicious lytic or sclerotic bony lesions. Softtissues are u nremarkable.IMPRESSION1. Interval development of nonenhancing, hypodensity within hepaticsegment VImeasuring 2.5 x 3.4 x 4.3 cm adjacent to the gallbladder fossa.Irregular thick enhancing wall and surrounding hyperemia suggest abscessformation.2. Right upper quadrant pigtail catheter. Prior cholecys tectomy.Hepatosplenomegaly. Minimal perihepatic free fluid.Preliminary Report Dictated by Resident: Juany Capone MD., have reviewed this study and agree with theabove report.[facility] 2020-03-27 12:47:00 Test Item Value Reference Range Interpretation Comments MAGNESIUM (test code = 3400997086) 2.6 mg/dL 1.7-2.4 H Lab Interpretation (test code = Abnormal 08012-6) [facility]EROBIC/ANAEROBIC) 2020-03-27 12:46:00 Test Item Value Reference Range Interpretation Comments BODY FLUID CULT No organisms isolated (test code = 611-4) Gram stain (test Few Polymorphonuclear code = 664-3) leukocytes [facility] (NA, K, CL, CO2, GLUCOSE, BUN, CREATININE, CA)2020-03-27 12:12:00 Test Item Value Reference Range Interpretation Comments NA (test code = 129 mmol/L 135-145 L 5852311157) K (test code = 4.0 mmol/L 3.5-5 2107292499) CL (test code = 92 mmol/L 98-108 L 2342549679) CO2 TOTAL (test code = 29 mmol/L 23-31 7220413753) AGAP (test code = 2-16 5449971820) BUN (test code = 50 mg/dL 7-23 H 9826769191) GLUCOSE (test code = 75 mg/dL 70-110 1188178182) CREATININE (test code = 10.70 mg/dL 0.6-1.25 H 2084297556) CALCIUM (test code = 8.4 mg/dL 8.6-10.6 L 7359750445) eGFR Calculation mL/min/1.73m2 (Non-) (test code = 0583725344) eGFR Calculation mL/min/1.73m2 () (test code = 0497882135) JALEEL (test code = JALEEL) Association of Glomerular Filtration Rate (GFR) and Staging of Kidney Disease* + --+ --+ ------+| GFR (mL/min/1.73 m2) ?| With Kidney Damage ?| ?Without Kidney Damage+ --------+ --------+ +| ?>90 ?| ?Stage one ?| ? Normal ?+ ---+ ---+ -------+| ?60-89 ?| ?Stage two ?| ? Decreased GFR ? + --+ --+ ------+| ?30-59 ?| ?Stage three ?| ? Stage three ? + --+ --+ ------+| ?15-29 ?| ?Stage four ? | ? Stage four ?+ ---+ ---+ -------+| ?<15 (or dialysis) ? ?| ?Stage five ? | ? Stage five ?+ ---+ ---+ -------+ *Each stage assumes the associated GFR level has been in effect for at least three months. ?Stages 1 to 5, with or without kidney disease, indicate chronic kidney disease. Notes: Determination of stages one and two (with eGFR >59mL/min/1.73 m2) requires estimation of kidney damage for at least three months as defined by structural or functional abnormalities of the kidney, manifested by either:Pathological abnormalities or Markers of kidney damage (including abnormalities in the composition of the blood or urine or abnormalities in imaging tests). Lab Interpretation Abnormal (test code = 09509-6) [facility] / [id number] 11:32:00 Test Item Value Reference Range Interpretation Comments PROTIME PATIENT (test See_Comment [Auto mated message] code = 5964-2) The system [employer] generated this result transmitted ref erence range: 10.1 - 1 2.6 Seconds. The re ference range was not u sed to interpret this result as normal/abnor mal. INR (test code = 6301-6) Nor mal INR <1.1; Warfarin Therap eutic range 2.0 to 3. 0 or 2.5 to 3.5, dep ending upon the indica tions. Lab Interpretation (test Normal code = 73005-3) [facility] WITH [id number] 11:24:00 Test Item Value Reference Range Interpretation Comments WBC (test code = See_Comment [Automated 6690-2) message] The sy stem which generated this result transmitted reference range : 4.20 - 10.70 10*3/?L. The reference range was not used to interpret this result as normal/abnormal . RBC (test code = See_Comment L [Automated 789-8) message] The sy stem which generated this result transmitted reference range : 4.26 - 5.52 10*6/?L. The reference range was not used to interpret this result as normal/abnormal . HGB (test code = 7.6 g/dL 12.2-16.4 L 718-7) HCT (test code = 22.8 % 38.4-49.3 L 4544-3) MCV (test code = 89.4 fL 81.7-95.6 787-2) MCH (test code = 29.8 pg 26.1-32.7 785-6) MCHC (test code = 33.3 g/dL 31.2-35 786-4) RDW-SD (test code = 48.9 fL 38.5-51.6 91321-3) RDW-CV (test code = 15.6 % 12.1-15.4 H 788-0) PLT (test code = See_Comment [Automated 777-3) message] The sy stem which generated this result transmitted reference range : 150 - 328 10*3/ ?L. The reference r yared was not used to interpret this result as normal/abnormal . MPV (test code = 8.8 fL 9.8-13 L 99129-0) NRBC/100 WBC (test See_Comment [Automat ed code = 9990787246) message] The system which generated this result transmitted reference range : 0.0 - 10.0 /100 WBCs. The refer ence range was not u sed to interpret th is result as normal/abnormal . NRBC x10^3 (test code <0.01 See_Comment [Auto mated = 8672925068) message] The s ystem which generated this result transmitted reference range : 10*3/?L. The reference range was not used to interpret this result as normal/abnormal . GRAN MAT (NEUT) % 74.1 % (test code = 770-8) IMM GRAN % (test code 1.20 % = 2748308057) LYMPH % (test code = 10.2 % 736-9) MONO % (test code = 9.1 % 5905-5) EOS % (test code = 4.8 % 713-8) BASO % (test code = 0.6 % 706-2) GRAN MAT x10^3(ANC) 5.37 10*3/uL 1.99-6.95 (test code = 2184127667) IMM GRAN x10^3 (test 0.09 10*3/uL 0-0.06 H code = 9553707917) LYMPH x10^3 (test code 0.74 10*3/uL 1.09-3.23 L = 731-0) MONO x10^3 (test code 0.66 10*3/uL 0.36-1.02 = 742-7) EOS x10^3 (test code = 0.35 10*3/uL 0.06-0.53 711-2) BASO x10^3 (test code 0.04 10*3/uL 0.01-0.09 = 704-7) Lab Interpretation Abnormal (test code = 60759-1) [facility] / [id number] 22:08:00 Test Item Value Reference Range Interpretation Comments WBC (test code = 6690-2) See_Comment [A utomated message] The system [employer] generated this result transmit emerson reference range : 4.20 - 10.70 10*3/?L. The reference range was not used to interpret this result as normal/abnormal . RBC (test code = 789-8) See_Comment L [Au tomated message] The system [employer] generated this result transmit emerson reference range : 4.26 - 5.52 10* 6/?L. The reference r yared was not used to interpret this result as normal/abnormal . HGB (test code = 718-7) 7.4 g/dL 12.2-16.4 L HCT (test code = 4544-3) 22.9 % 38.4-49.3 L MCH (test code = 785-6) 29.1 pg 26.1-32.7 MCV (test code = 787-2) 90.2 fL 81.7-95.6 MCHC (test code = 786-4) 32.3 g/dL 31.2-35 PLT (test code = 777-3) See_Comment [Au tomated message] The system [facility] generated this result transmit emerson reference range : 150 - 328 10*3/?L. The reference range was not used to interpret this result as normal/abnormal . MPV (test code = 8.8 fL 9.8-13 L 86716-5) RDW-CV (test code = 16.0 % 12.1-15.4 H 788-0) RDW-SD (test code = 51.2 fL 38.5-51.6 30282-2) NRBC x10^3 (test code = <0.01 See_Comment [Au tomated message] 9931096881) The system [facility] generated this result transmit emerson reference range : 10*3/?L. The reference range was not used to interpret this result as normal/abnormal . NRBC/100 WBC (test code See_Comment [Au tomated message] = 2971369895) The system [facility] generated this result transmit emerson reference range : 0.0 - 10.0 /100 WBC s. The reference r yared was not used to interpret this result as normal/abnormal . IPF % (test code = 5120483495) Lab Interpretation (test Abnormal code = 96575-0) [facility]PROT[facility] / [id number] 20:24:00 Test Item Value Reference Range Interpretation Comments PROTIME PATIENT (test See_Comment [Auto mated message] code = 5964-2) The system [facility] generated this result transmitted ref erence range: 10.1 - 1 2.6 Seconds. The re ference range was not u sed to interpret this result as normal/abnor mal. INR (test code = 6301-6) Nor mal INR <1.1; Warfarin Therap eutic range 2.0 to 3. 0 or 2.5 to 3.5, dep ending upon the indica tions. Lab Interpretation (test Normal code = 87527-5) [facility] HospitalCT THORAX WO [id number] 14:16:52 Extensive multivessel coronary artery disease. Calcified left thyroid nodule measuring 1.0 cm, likely benign but anonemergent thyroid ultrasound can be obtained for further evaluation. Mid esophagus shows circumferential wall thickening, measuring up to 9 mm For the findings below the diaphragm please refer to concurrently obtainedCT of the abdomen and pelvis. Preliminary Report Dictated by Resident: Merlene Manning MD., have reviewed this study and agree with the abovereport.CT THORAX WO CONTRAST HISTORY: 59 years- old; Male; UGIB COMPARISON: None TECHNIQUE: An outside hospital noncontrast CT of the chest, abdomen, andpelvis is obtained. Sagittal and coronal reformats of the chest were alsogenerated. FINDINGS: Lower neck/thyroid: Nodular coarse calcification is noted in the inferiorpole of the left thyroid lobe (469) measuring 1.0 cm in diameter. Lungs: Atelectatic changes are noted in the lingula and inferior segment ofleft lower lobe. The lungs are otherwise clear. Central airway: Unremarkable. Pleura: No pleural effusion, thickening or pneumothorax. Thoracic aorta and great vessels: The normal three vessel branching patternis identified off of the aortic arch. The aorta is normal in diameter. Mildatherosclerotic disease affects the aorta and its primary branches. Pulmonaryarteries: Normal in caliber. Heart and pericardium: Extensive multivessel coronary arterialcalcifications are present. Unremarkable cardiac morphology andpericardium. Lymph nodes: No enlarged thoracic lymph nodes. Mediastinum: Mid esophagus shows circumferential wall thickening, measuringup to 9 mm. Thoracic spine and chest wall: No aggressive osseous lesions are seen. Other Lines/Tubes/Devices/Hardware: None Visualized upper abdomen: For the findings below the diaphragm please referto concurrently obtained CT of the abdomen and pelvis. [facility], Radiant Results Inft User - 03/26/2020 9:18 AM CDTCT THORAX WO CONTRASTHISTORY: 59 years-old; Male; UGIB COMPARISON: NoneTECHNIQUE: An outside hospital noncontrast CT of the chest, abdomen, andpelvis is obtained. Sagittal and coronal reformats of the chest were alsogenerated.FINDINGS:Lower neck/thyroid: Nodular coarse calcification is noted in the inferiorpole of the left thyroid lobe (469) measuring 1.0 cm in diameter.Lungs: Atelectatic changes are notedin the lingula and inferior segment ofleft lower lobe. The lungs are otherwise clear.Central airway:Unremarkable.Pleura: No pleural effusion, thickening or pneumothorax.Thoracic aorta and great vessels: The normal three vessel branching patternis identified off of the aortic arch. The aorta is normalin diameter. Mildatherosclerotic disease affects the aorta and its primary branches.Pulmonary arteries: Normal in caliber.Heart and pericardium: Extensive multivessel coronary arterialcalcifications are present. Unremarkable cardiac morphology andpericardium.Lymph nodes: No enlarged thoracic lymph node s.Mediastinum: Mid esophagus shows circumferential wall thickening, measuringup to 9 mm.Thoracic spine and chest wall: No aggressive osseous lesions are seen.Other Lines/Tubes/Devices/Hardware: NoneVisualized upper abdomen: For the findings below the diaphragm please referto concurrently obtained CT of the abdomen and pelvis.IMPRESSIONExtensive multivessel coronary artery disease.Calcified left thyroid nodule measuring 1.0 cm, likely benign but anonemergent thyroid ultrasound can be obtained for further evaluation.Mid esophagus shows circumferential wall thickening, measuring up to 9 mmFor the findings below the diaphragm please refer to concurrently obtainedCT of the abdomen and pelvis.Preliminary Report Dictated by Resident: Meliton Gill, Merlene Álvarez MD., have reviewed this study and agree with the abovereport.[facility] (NA, K, CL, CO2, GLUCOSE, BUN, CREATININE, CA)2020-03-26 11:32:00 Test Item Value Reference Range Interpretation Comments NA (test code = 127 mmol/L 135-145 L 7649093369) K (test code = 4.4 mmol/L 3.5-5 3108712523) CL (test code = 91 mmol/L 98-108 L 0843726199) CO2 TOTAL (test code = 29 mmol/L 23-31 8271151892) AGAP (test code = 2-16 6066221675) BUN (test code = 61 mg/dL 7-23 H 7349805782) GLUCOSE (test code = 97 mg/dL 70-110 4606611653) CREATININE (test code = 12.15 mg/dL 0.6-1.25 H 1387998966) CALCIUM (test code = 8.5 mg/dL 8.6-10.6 L 8488582708) eGFR Calculation mL/min/1.73m2 (Non-) (test code = 1816410811) eGFR Calculation mL/min/1.73m2 () (test code = 2172252307) JALEEL (test code = JALEEL) Association of Glomerular Filtration Rate (GFR) and Staging of Kidney Disease* + --+ --+ ------+| GFR (mL/min/1.73 m2) ?| With Kidney Damage ?| ?Without Kidney Damage+ --------+ --------+ +| ?>90 ?| ?Stage one ?| ? Normal ?+ ---+ ---+ -------+| ?60-89 ?| ?Stage two ?| ? Decreased GFR ? + --+ --+ ------+| ?30-59 ?| ?Stage three ?| ? Stage three ? + --+ --+ ------+| ?15-29 ?| ?Stage four ? | ? Stage four ?+ ---+ ---+ -------+| ?<15 (or dialysis) ? ?| ?Stage five ? | ? Stage five ?+ ---+ ---+ -------+ *Each stage assumes the associated GFR level has been in effect for at least three months. ?Stages 1 to 5, with or without kidney disease, indicate chronic kidney disease. Notes: Determination of stages one and two (with eGFR >59mL/min/1.73 m2) requires estimation of kidney damage for at least three months as defined by structural or functional abnormalities of the kidney, manifested by either:Pathological abnormalities or Markers of kidney damage (including abnormalities in the composition of the blood or urine or abnormalities in imaging tests). Lab Interpretation Abnormal (test code = 49147-9) [facility]2020-[facility] 11:32:00 Test Item Value Reference Range Interpretation Comments MAGNESIUM (test code = 5016487135) 3.0 mg/dL 1.7-2.4 H Lab Interpretation (test code = Abnormal 15997-8) [facility]CBC WITH [id number] 11:10:00 Test Item Value Reference Range Interpretation Comments WBC (test code = See_Comment [Automated 6690-2) message] The sy stem which generated this result transmitted reference range : 4.20 - 10.70 10*3/?L. The reference range was not used to interpret this result as normal/abnormal . RBC (test code = See_Comment L [Automated 789-8) message] The sy stem which generated this result transmitted reference range : 4.26 - 5.52 10*6/?L. The reference range was not used to interpret this result as normal/abnormal . HGB (test code = 7.2 g/dL 12.2-16.4 L 718-7) HCT (test code = 22.3 % 38.4-49.3 L 4544-3) MCV (test code = 90.7 fL 81.7-95.6 787-2) MCH (test code = 29.3 pg 26.1-32.7 785-6) MCHC (test code = 32.3 g/dL 31.2-35 786-4) RDW-SD (test code = 51.5 fL 38.5-51.6 14272-4) RDW-CV (test code = 16.3 % 12.1-15.4 H 788-0) PLT (test code = See_Comment [Automated 777-3) message] The sy stem which generated this result transmitted reference range : 150 - 328 10*3/ ?L. The reference r yared was not used to interpret this result as normal/abnormal . MPV (test code = 8.8 fL 9.8-13 L 26941-4) NRBC/100 WBC (test See_Comment [Automat ed code = 0353530988) message] The system which generated this result transmitted reference range : 0.0 - 10.0 /100 WBCs. The refer ence range was not u sed to interpret th is result as normal/abnormal . NRBC x10^3 (test code <0.01 See_Comment [Auto mated = 7216075128) message] The s ystem which generated this result transmitted reference range : 10*3/?L. The reference range was not used to interpret this result as normal/abnormal . GRAN MAT (NEUT) % 75.0 % (test code = 770-8) IMM GRAN % (test code 1.20 % = 5095792782) LYMPH % (test code = 11.3 % 736-9) MONO % (test code = 8.6 % 5905-5) EOS % (test code = 3.5 % 713-8) BASO % (test code = 0.4 % 706-2) GRAN MAT x10^3(ANC) 5.77 10*3/uL 1.99-6.95 (test code = 9067830804) IMM GRAN x10^3 (test 0.09 10*3/uL 0-0.06 H code = 8727331950) LYMPH x10^3 (test code 0.87 10*3/uL 1.09-3.23 L = 731-0) MONO x10^3 (test code 0.66 10*3/uL 0.36-1.02 = 742-7) EOS x10^3 (test code = 0.27 10*3/uL 0.06-0.53 711-2) BASO x10^3 (test code 0.03 10*3/uL 0.01-0.09 = 704-7) Lab Interpretation Abnormal (test code = 11765-9) [facility] HospitalHEMOCHROMATOSIS(HFE)3 [id number] 19:53:00 Test Item Value Reference Range Interpretation Comments HFE - 3 Mutations Negative Negative (test code = 2851523204) JALEEL (test code = Hemochromatosis (HFE) 3 JALEEL) Mutations Result: Negative Result comments: Phenotype Characteristics: Hereditary hemochromatosis (HH) results from a mutated hemochromatosis (HFE, human factors engineering) protein wherein the body accumulates excess iron. Excessive iron storage can lead to increased skin pigmentation and diseases including arthritis, hypogonadism, diabetes mellitus, heart arrhythmias/failure, cirrhosis and liver carcinoma. This test establishes HH diagnosis in individuals with abnormal iron study results and identifies at-risk family members. Mutations in the HFE gene that cause hereditary hemochromatosis also increase the risk of developing the most common form of porphyria, porphyria cutanea tarda. The C282Y HFE mutation may also increase the severity of the iron overload in X-linked sideroblastic anemia when it is inherited with a mutation in the ALAS2 gene. Incidence: One in 300 individuals of [place] descent; less common in other populations. Inheritance: Autosomal recessive. Penetrance: The most penetrant of these mutations is C282Y; C282Y homozygotes account for up to 90% of clinical cases of hereditary hemochromatosis. H63D and S65C homozygosity typically cause only mild disease or no clinical consequences. Mutation Tested: p.C282Y (c.845G>A), p.H63D (c.187C>G), and p.S65C (c.193A>T). Methodology: Mutations are detected using genomic DNA and pyrosquencing of PCR products. This test was developed and its performance characteristics were determined by [facility]. It has not been cleared or approved by the U. S. Food and Drug Administration (FDA). The FDA has determined that such clearance or approval is not necessary. This test is used for clinical purposes. It should not be regarded as investigational or for research. This laboratory is certified under the Clinical Laboratory Improvement Amendments of 1988 (CLIA-88) as qualified to perform high complexity clinical laboratory testing. Analytic Sensitivity and Specificity: 99 percent. Limitations: Diagnostic errors can occur due to rare sequence variations. HFE mutations, other than those targeted, will not be detected. Counseling and informed consent are recommended for genetic testing. Consent form is available online. References: OMIM: http://omim.org/entry/613 609Genetics Home Reference: https://r.nlm.nih.gov/g lesley/HFE This report has been reviewed and approved by Abelardo Wintesr MD, PhD, [facility]CARCINOEMBRYONIC [id number] 17:24:00 Test Item Value Reference Range Interpretation Comments CEA (test code = 5.6 ng/mL 0-10 0968616136) JALEEL (test code = JALEEL) CEA Ranges: Non-Smokers ?0-5.0 ng/mLSmokers ? ? ?0-10.0 ng/mL Lab Interpretation (test Normal code = 02046-6) [facility] ANTIGEN-GI (CA 19-9)2020-03-25 17:24:00 Test Item Value Reference Range Interpretation Comments CA 19-9 (test code = 8.5 U/mL 0-35 4036624192) JALEEL (test code = JALEEL) Biotin has been reported to cause a negative bias, interpret results relative to patient's use of biotin. Lab Interpretation (test Normal code = 45496-1) [facility] HospitalALPHA [id number] 17:23:00 Test Item Value Reference Range Interpretation Comments AFP (test code = 1.0 ng/mL See_Comment [Automated 2397034620) message] The system which generated this result transmitted reference range : <=7.5. The reference range was not used to interpret this result as normal/abnormal . JALEEL (test code = JALEEL) Biotin has been reported to cause a negative bias, interpret results relative to patient's use of biotin. Lab Interpretation Normal (test code = 44707-2) [facility] HospitalAMYLASE2020-06-17 16:45:00 Test Item Value Reference Range Interpretation Comments KAREN (test code = 8201099096) 75 U/L 35-110 Lab Interpretation (test code = Normal 10710-9) [facility] HospitalLIPASE2020-06-17 16:45:00 Test Item Value Reference Range Interpretation Comments LIPASE (test code = 7432751078) 14 U/L 0-220 Lab Interpretation (test code = Normal 46460-9) [facility] PATHOLOGY [id number] 16:28:00 Test Item Value Reference Range Interpretation Comments Case Report (test code Surgical Pathology ? ? = [id number]) ?Case: [id number] ? Authorizing Provider: ?Beatriz Atkinson MD ?Collected: ? 03/24/2020 1528 ?Ordering Location: ? ? GI Endoscopy OR Department Received: ?03/24/2020 1614 ?Pathologist: ? Lizet Mesa MD PHD ?Specimen: ? ?STOMACH, Gastric BX's ?to evaluate for H pylori ? Final Diagnosis (test w2sckSNzCNEqd4fpIVJglZ code = 3030065919) FuZzEwMzNcZnRuYmpcdWMx VFdqwsNcEFvez8KjZ0OlJc AwMFxhbnNpXGRlZmxhbmcx PUEtLCX7tiIaYNHpZIfhCD UiWRbdAu3gtJPafLwvBhKc FVSoc4ohbfIKyekiuYo2b2 huIYCsBpS5fSYhMNlnP5kg gtRttCNuYXPxJDq2lI75MZ UuxO4vhLAbWNigcxOwXTby ieEtmcDwRih9VRZoX0xrGR MvVKDjN9CvOW8wPYAfOcy0 SYY8EPO2yQpos0R0mTWjyI VroMhjCxBvLnAdZSBZw4Tp DPk6tKdwP4UdVXYwVbL5sC QgUGFyYWdyYXBoIEZvbnQ7 zJ05DDucnoC2uFKzo5Xhu6 2tc315sS7ojFNvZPD6WMMs CMIzoBIdCZSaOYE1LCHjmZ XpQ7adXVtzRC8atrfbKTY6 MFxtYXJndDcyMFxtYXJnYj KicJGaZRRapAyfGSokt896 UEQ9CjPiCQ3cU4Lef8X0jE 9maXRcZGVmdGFiNzIwXGZv wz9xaZRtPYgdj2UpHIY1hl B5rIVioHNvJZOwOO45Fdug o4NbEcnnTNM9YLOazqAjk4 Olg6frCrCfjpCgT2yxX1Ud ZHJoZWFkXHBnYnJkcmZvb3 Giw5KvuZYtaLa1q1iyVCJh AFSxbCaqe3uoWMD5RZFdG3 P1aCBei8suKPqqPJIfkSI4 pdVjJFDvsKXxQ8GarF9yRZ caXU4fhni9s9vnZdMsLI3b tmmze6cmDBaoNQXuBAQ3Bk LqYHQzq3NofatmJoOfp1Aj qBDiVDedO18fa441SAXrtz CoW7bkmARzhfwzdKIjdvmv MFxmczIwXHFsXHBsYWluXG GdBUDlSdVxfMweoC5kZvYq ZnMyMFxwYXJccGFyZFxwbG FpblxmMFxmczIwXHBsYWlu XGYwXGZzMjBccGFyIEEuIF FDF01VJ5syMIZJS0CZYBxb cGFyXGZpMjcwXHFsXHBsYW iwPPQrUIAkJoEuxWnwpY7h GiIyBuGdITTlPOhCR7CKZZ EnZGLFJ5NEQVkBHFvbJc7k PVFFXK8SF5cBM5KJLSJGVS 4TOQhqXLTyMABGWiNVG1VG KejXCTHTNrTXBxEXA0JJOg EONX7PCCVJPDBOBHMqNPJQ TlRJRklFRFxwYXIgLSBOTy LLZpBKFD2FOH1NKRmJQP3S K8JGGMBSUwSFYMNFBQxSEF ENRCViwxmmrJPipSrkuJ8n ZjBcZnMyMFxwbGFpblxmMF xmczIwXHBhclxwbGFpblxm MVxmczIyXGxhbmcxMDMzXG ufP5wsGpRgUCYqzKznUBlr x9QtDPGhDMGuHMrfwkFrUB 16EzVlKCOpNI6vyx78DOUj yqszNTGFSjYcLv7kTc0mUF XxPSXbXMk0XwHTZYgunDYb vwubFExtdyOvBVQsss30RH D6MkPjb9Y2VBUkBjTpYLJz HT2twBhtZMCtAE0jVVOuP4 rvsK4gqvk2OuSqFWLbUkR3 RCMfnqH7Wax9PBGaLZnik5 ksx8UiF4XrkHMwnSf8b4yw GNUgFaL8sQYyLAylB6iulj IwcECvFWDxJQp7jNbjLiEd VAJgr1wyzqSmSgYtOQEwVV BsZPCawTddpdj5oH04AMSc oA7ggHInHLfksvCkEgX0YB ugLIYoYnN6MPPvhLYlFNJi D8hxMVGyFYemNCMkZNtddN OpFNP4yYphs2P3cZIuyZXt uOshDsPpFvJtMGZBu3CvTQ g0rYfaF5PcQUEfJyS8vJBd ZVPyLKxuIHLpKDSmahD1kG 32BXcykpR5uJYdd3Ypo76c e548iI2juWFyCWY2PBHyAO LtwZIjEBSwZZR0QDZmcVHl K6uoDZSeQT1eulpwOOfpQE ivWUJebXG4UZGraTNiL5Jb ZSXxVCbwCSAausv8NfBzUm 1iiVPftMfwOPirf4rrb8fv sRCeWfj3OPEiNgTkVsiiWI ula3Vsy1irLBQtnl2pCCQ3 jJElkNnbs1F4kVUlAJNjnH PaxySkWJAjXfN6BQgqMT1e os40CYWaLVL6sm4jiQMphT indeYlaLNiAQenC9YcIFTp f143MTGsI4RvVWRmi7A1ds HdRmNhGLHvoZL3kwB9EEYs QVd7hTQdbgE9beUcbNKdY6 onpG0jUBQdGV6dcumyf0gy VZuoUUpuFTGiwDB4seT2DR KdwCPeK6DgbK0yXUPnJFme IEZppdy5XnUzUe1leNIupZ cyMFxzYmtwYWdlXHBnbmNv bnRccGduZGVjXHBsYWluXH BsYWluXGYwXGZzMjRccWxc vYkbbB2fLiBmThPuFQfwPJ 5pGPMeG4duaRTuNWRbSFRh R1qhGwEbcG7fbHzuXTfoLh JcZnMyMFxwYXIgSSBoYXZl DWIaczFowdIotZyelsS6yF K3MTGwOWxeAGOeVDSuuHPp fm6dqNbxRXEwWF6xDPZzpg YsFXnoyBucAIkfFGC6EASh bWVudHMgbWFkZSBieSByZX SbAVNilRPrUUMvmRwsa3Mp g9DlhTU5aY2jh0nrv1KpLI IniSP7RM52kdS3cV8aUZVx TI0jIAOwHX5orYEjhDCgRE Pio76giFqrsvHbBQSlakJf XHBsYWluXGYyXGZzMjhcbG FuZzEwMzNcaGljaFxmMlxk MeTvMJRmEAwgG9ryEtIxEl IyPYqdZIC5aC== Clinical Information 59 y/o male with blood (test code = in vomit and stool1. 4720615068) Gastric BX's ?to evaluate for H pylori Gross Description (test y4nshAReUTVzaTDdZpXjUP code = 1737851359) XjPXLxp0xvSQJbvAJfUeFn MzNcZnRuYmpcdWMxXGRlZm Fle8abg777dCFmc0lbAQDd VbC5qUNvQFOzaWIqD580EU ZqZYvqe8hop0DuVJElnZDw l3S4HHOSakclqKp4uGreS2 5xl6F9XzhrE8ecKZTxJCrs GOUwQFabgWJqLJZ9PECcPI M0JSicmwRqqtP7YGhanXKv WzA7PBe2d6wncUhrAOIuCL L8x6jtNYefcdWrJB7kmw9h mDg2t7mtliKrNSEbBMRygF PUHBUjN1JbnEbqDg1kmQu6 cJkiFrzcVJN7Sfn7SN0ruu 53zsv7jGrkKTProeidPbP5 XIzsDKZaswxwMFu4MDwxMQ PwiWUwUAOinBQyF2LuVHwd LW8kjmw4FxLzUR8dxzzyKO bmTBSjIBL2BuTzTHBcm9Nm lihlCtOnbj2vyy47OZF2n4 PvfUydXTJ5YZU6LzYrKl0j cCJcDQJlUQ4kReAjfOGtWM Hdez90uNadGNnteeWdqL6v RkZkVYZzsVRmUBOvYG5caI GfKVOzcQ1kxkjqIUKlUpBp cretLSRmaZadwpOxEd5zjQ yuEXM9QRpmE4sdfR8dHhR6 RSfqA8jmaW4oCBh9BKelcS Q3UEOugV5nRS6ipyxwu9es NZK7FRnnFDIdztY3otMzEL KifXFrR4AaxA31KdFpnUMp Q9CdgZ1yGUefVQRytkt2Mf IoJm9ukEUyfVQ7UZmqUjqe YWdlXHBnbmNvbnRccGduZG VjXHBsYWluXHBsYWluXGYw QTMhWjFdw3EuZTZpd7vyQl Gho0jdpKs5THxigCtjoDQy blxmMFxmczIwXHBsYWluXG YaZRLlDcVvJ1NiX0epPB0z QSBpcyByZWNlaXZlZCBpbi Bod0RzZEjmpoLsXXNmuWos XPE7wAYqGKIgARUeJAMrQG 50XHBsYWluXGYxXGZzMjBc aFzkWBfpSZn8DuhqpMDhhq xmMVxmczIwIHMgbmFtZSwg ZTkrgbQiEoTyRUEepU6jQX IhVPHxETB0konaKECwb8In bFV1dbGxyrDlgZV0WSXjf7 FaJN5ndOxmc5AlHOInRFod XGYxXGZzMjBcdTgyMjEgXC l1GZhrgNEtizupZWsuylLj TUNmuvEoA74sk7bdyRQnr4 NgZyA4CL4woXshilMudjZs W8JiAJSpi66vsER4kUXzyM SmCmFvB02vszIyDIgtAkZc gKVbRlHjbIJmTcGwS63tNZ LnLdW3NMSzGXF2OAPbFSDy hZDiklOyVP01YVonQY3zYB pqQR1sTWGkUI3fJSspZQLz ZWNpbWVuIGlzIGZpbHRlcm JcNUEoup62L5dyWTNtvH7y q8ebTiMsZDKvDZJxuPDtlS C5USTjjC4cgQ84ujJdasEW RR6dmYZyHQFvmvLzdYwfsB 5cZjBcZnMyMFxwbGFpblxm MVxmczIwIExhdXJlbiBWYW RtOChtWXMhFJASM5BwENVo YWluXGYxXGZzMjBcbGFuZz EwMzNcaGljaFxmMVxkYmNo JRKtMWcxJ7fcJzHgR9GdYC AlGyRfj3CmMLNfQ88sjFvz qZ3qEdQcJyOeAAsiTRZ1 Embedded Images (test code = 0767221977) [facility] Hospital[facility] Packed RBC (in units), 1 Units 2020-03-25 15:28:45 Test Item Value Reference Range Interpretation Comments Cross Match Result Compatible (test code = 4409) ISBT Blood Type Code (test code = 774563) Unit Blood Type (test O Pos code = 4410) Unit Number (test [id number] code = 4411) Blood Expiration Date & Time (test code = 018480) Status Information Issued (test code = 4412) Product Red Blood Cells Identification (test code = 4413) Product Code (test P9996A07 Performed at [facility] code = 4414) Laboratory Services - [facility] Blood [address] [place] [id number] Free: [phone] A No. [id number] [facility]2020-06-17 10:38:00 Test Item Value Reference Range Interpretation Comments PHOSPHORUS (test code = 9209219901) 7.8 mg/dL 2.5-5 H Lab Interpretation (test code = Abnormal 78462-0) [facility] (NA, K, CL, CO2, GLUCOSE, BUN, CREATININE, CA)2020-03-25 10:38:00 Test Item Value Reference Range Interpretation Comments NA (test code = 131 mmol/L 135-145 L 9514714911) K (test code = 4.0 mmol/L 3.5-5 0109426674) CL (test code = 99 mmol/L 98-108 2594363068) CO2 TOTAL (test code = 23 mmol/L 23-31 4825364934) AGAP (test code = 2-16 6273243744) BUN (test code = 60 mg/dL 7-23 H 4515611738) GLUCOSE (test code = 107 mg/dL 70-110 9816378463) CREATININE (test code = 10.64 mg/dL 0.6-1.25 H 7614410689) CALCIUM (test code = 7.6 mg/dL 8.6-10.6 L 0723464978) eGFR Calculation mL/min/1.73m2 (Non-) (test code = 2944038249) eGFR Calculation mL/min/1.73m2 () (test code = 0801274740) JALEEL (test code = JALEEL) Association of Glomerular Filtration Rate (GFR) and Staging of Kidney Disease* + --+ --+ ------+| GFR (mL/min/1.73 m2) ?| With Kidney Damage ?| ?Without Kidney Damage+ --------+ --------+ +| ?>90 ?| ?Stage one ?| ? Normal ?+ ---+ ---+ -------+| ?60-89 ?| ?Stage two ?| ? Decreased GFR ? + --+ --+ ------+| ?30-59 ?| ?Stage three ?| ? Stage three ? + --+ --+ ------+| ?15-29 ?| ?Stage four ? | ? Stage four ?+ ---+ ---+ -------+| ?<15 (or dialysis) ? ?| ?Stage five ? | ? Stage five ?+ ---+ ---+ -------+ *Each stage assumes the associated GFR level has been in effect for at least three months. ?Stages 1 to 5, with or without kidney disease, indicate chronic kidney disease. Notes: Determination of stages one and two (with eGFR >59mL/min/1.73 m2) requires estimation of kidney damage for at least three months as defined by structural or functional abnormalities of the kidney, manifested by either:Pathological abnormalities or Markers of kidney damage (including abnormalities in the composition of the blood or urine or abnormalities in imaging tests). Lab Interpretation Abnormal (test code = 08256-7) [facility]2020-[facility] 10:38:00 Test Item Value Reference Range Interpretation Comments MAGNESIUM (test code = 2778997746) 2.9 mg/dL 1.7-2.4 H Lab Interpretation (test code = Abnormal 67600-4) [facility] / [id number] 10:27:00 Test Item Value Reference Range Interpretation Comments WBC (test code = 6690-2) See_Comment H [A utomated message] The system [employer] generated this result transmit emerson reference range : 4.20 - 10.70 10*3/?L. The reference range was not used to interpret this result as normal/abnormal . RBC (test code = 789-8) See_Comment L [Au tomated message] The system [employer] generated this result transmit emerson reference range : 4.26 - 5.52 10* 6/?L. The reference r yared was not used to interpret this result as normal/abnormal . HGB (test code = 718-7) 7.0 g/dL 12.2-16.4 L HCT (test code = 4544-3) 21.5 % 38.4-49.3 L MCH (test code = 785-6) 29.5 pg 26.1-32.7 MCV (test code = 787-2) 90.7 fL 81.7-95.6 MCHC (test code = 786-4) 32.6 g/dL 31.2-35 PLT (test code = 777-3) See_Comment [Au tomated message] The system [employer] generated this result transmit emerson reference range : 150 - 328 10*3/?L. The reference range was not used to interpret this result as normal/abnormal . MPV (test code = 8.9 fL 9.8-13 L 00964-5) RDW-CV (test code = 16.3 % 12.1-15.4 H 788-0) RDW-SD (test code = 50.4 fL 38.5-51.6 41017-2) NRBC x10^3 (test code = <0.01 See_Comment [Au tomated message] 3042303558) The system [facility] generated this result transmit emerson reference range : 10*3/?L. The reference range was not used to interpret this result as normal/abnormal . NRBC/100 WBC (test code See_Comment [Au tomated message] = 2215264519) The system [facility] generated this result transmit emerson reference range : 0.0 - 10.0 /100 WBC s. The reference r yared was not used to interpret this result as normal/abnormal . IPF % (test code = 9469632659) Lab Interpretation (test Abnormal code = 61795-7) [facility] / [id number] 03:49:00 Test Item Value Reference Range Interpretation Comments WBC (test code = 6690-2) See_Comment H [A utomated message] The system [facility] generated this result transmit emerson reference range : 4.20 - 10.70 10*3/?L. The reference range was not used to interpret this result as normal/abnormal . RBC (test code = 789-8) See_Comment L [Au tomated message] The system [facility] generated this result transmit emerson reference range : 4.26 - 5.52 10* 6/?L. The reference r yared was not used to interpret this result as normal/abnormal . HGB (test code = 718-7) 7.8 g/dL 12.2-16.4 L HCT (test code = 4544-3) 24.2 % 38.4-49.3 L MCH (test code = 785-6) 29.2 pg 26.1-32.7 MCV (test code = 787-2) 90.6 fL 81.7-95.6 MCHC (test code = 786-4) 32.2 g/dL 31.2-35 PLT (test code = 777-3) See_Comment [Au tomated message] The system [facility] generated this result transmit emerson reference range : 150 - 328 10*3/?L. The reference range was not used to interpret this result as normal/abnormal . MPV (test code = 8.9 fL 9.8-13 L 50254-1) RDW-CV (test code = 16.4 % 12.1-15.4 H 788-0) RDW-SD (test code = 50.1 fL 38.5-51.6 61117-8) NRBC x10^3 (test code = <0.01 See_Comment [Au tomated message] 1711643250) The system [facility] generated this result transmit emerson reference range : 10*3/?L. The reference range was not used to interpret this result as normal/abnormal . NRBC/100 WBC (test code See_Comment [Au tomated message] = 7983742345) The system [facility] generated this result transmit emerson reference range : 0.0 - 10.0 /100 WBC s. The reference r yared was not used to interpret this result as normal/abnormal . IPF % (test code = 5126170006) Lab Interpretation (test Abnormal code = 81086-1) [facility] 22:11:00 Test Item Value Reference Range Interpretation Comments POCT GLU (test code = 0744564574) 149 mg/dL 70-110 H Lab Interpretation (test code = Abnormal 33118-7) [facility] [id number] 19:16:00 Test Item Value Reference Range Interpretation Comments WBC (test code = 6690-2) See_Comment H [A utomated message] The system [facility] generated this result transmit emerson reference range : 4.20 - 10.70 10*3/?L. The reference range was not used to interpret this result as normal/abnormal . RBC (test code = 789-8) See_Comment L [Au tomated message] The system [facility] generated this result transmit emerson reference range : 4.26 - 5.52 10* 6/?L. The reference r yared was not used to interpret this result as normal/abnormal . HGB (test code = 718-7) 7.4 g/dL 12.2-16.4 L HCT (test code = 4544-3) 23.0 % 38.4-49.3 L MCH (test code = 785-6) 28.9 pg 26.1-32.7 MCV (test code = 787-2) 89.8 fL 81.7-95.6 MCHC (test code = 786-4) 32.2 g/dL 31.2-35 PLT (test code = 777-3) See_Comment [Au tomated message] The system [employer] generated this result transmit emerson reference range : 150 - 328 10*3/?L. The reference range was not used to interpret this result as normal/abnormal . MPV (test code = 8.9 fL 9.8-13 L 79756-2) RDW-CV (test code = 15.9 % 12.1-15.4 H 788-0) RDW-SD (test code = 48.3 fL 38.5-51.6 33081-9) NRBC x10^3 (test code = <0.01 See_Comment [Au tomated message] [id number]) The system [employer] generated this result transmit emerson reference range : 10*3/?L. The reference range was not used to interpret this result as normal/abnormal . NRBC/100 WBC (test code See_Comment [Au tomated message] = [id number]) The system [employer] generated this result transmit emerson reference range : 0.0 - 10.0 /100 WBC s. The reference r yared was not used to interpret this result as normal/abnormal . IPF % (test code = 1576780509) Lab Interpretation (test Abnormal code = 43814-7) [facility]2020-03-24 17:35:00 Test Item Value Reference Range Interpretation Comments POCT GLU (test code = 1907791544) 76 mg/dL 70-110 Lab Interpretation (test code = Normal 21031-0) [facility] ANGIOGRAM ABDOMEN/[id number] 16:43:35 1. No active GI bleeding is seen; however, evaluation is markedly limitedas oral contrast material is noted throughout the the mid to distal smallbowel and colon. 2. Mild to moderate volume ascites with hyperattenuating fluid in thesubhepatic region concerning for hemoperitoneum. 3. Hypoattenuating, n onenhancing lesion in the right hepatic lobe withfaint peripheral enhancement adjacent to the gallbladder fossa likelyrepresents recent changes from known liver biopsy associated withinflammation. Early abscess formation cannot be excluded. No active bleed,pseudoaneurysm or AV fistula. Consider interval follow up MRI of the liver. Above findings discussed with Dr. Medina from surgery at 11:40 AM, 03/24/2020. 4. Tree-in-bud nodularity in the right lower lobe is consistent withinfection and/or aspiration. 5. Fusiform ectasia of the celiac artery, unchanged 6. Bilateral atrophic kidneys RESIDENT RADIOLOGIST:Dr. Raúl Palomino ATTENDING RADIOLOGIST:Dr. Mark Wren I, Mark Llamas MD., have reviewed this study and agree with the abovereport.EXAMINATION: CT ANGIOGRAM ABDOMEN/PELVIS HISTORY: GI bleed COMPARISON:CT dated 07/10/2019. TECHNIQUE:CT angiography of the abdomen and pelvis was performed after theuncomplicated administration of 150 mL of Omnipaque IV contrast. MIP andMPR reconstructed images were performed and reviewed. FINDINGS: CTA ABDOMEN/PELVIS:Minimal atherosclerotic disease isnoted in the abdominal aorta, visceralarteries of the abdomen, and iliac arteries. The abdominal aorta is widely patent. ?The celiac artery, SMA, MEL, andrenal arteries are widely patent. There is fusiform ectasia of the celiacartery measuring 1.3 cm in transverse diameter, grossly unchanged comparedto prior study. The common iliac, internal iliac, external iliac arteries are widelypatent. OTHER FINDINGS: Oral contrast material is scattered throughout the colon limitingevaluation for active GI bleeding. No definite active GI bleeding is seen.There is no focal bowel wall thickening and no bowel dilatation. Smallhiatal hernia. Tree in bud nodularity is noted in the right lower lobe concerning forinfectious process. There is atelectasis in the left lung base. Heart is globally enlarged. A small sliding hiatal hernia is present. A 3.4 cm hypoattenuating lesion is noted in segment 5/6 of the liver. Thelesion does not demonstrate central enhancement but does have faintperipheral enhancement on the delayed phase sequences. No active contrastextravasation, pseudoaneurysm, or arteriovenous fistula in this region.This was not seen on the prior CT. Cholecystectomy changes are noted with no biliary ductal dilatation. Noabscess in the surgical bed. No splenomegaly. No pancreatic mass or ductal dilatation. No adrenal nodules. Both nome kidneys are atrophic. No renal stones, masses, orhydronephrosis. The urinary bladder is unremarkable. Moderate volume ascites is noted. The fluid in the right subhepatic regionis hyperattenuating concerning for blood products. A percutaneousperitoneal catheter is present with its tip formed in the right lowerquadrant of the abdomen. No acute or aggressive bony lesionsare seen. An enostosis is in the rightiliac bone (302:290). Facet arthropathy changes noted in the lumbar spine. [facility], Radiant Results Inft User - 03/24/2020 11:44 AM CDTEXAMINATION: CT ANGIOGRAM ABDOMEN/PELVISHISTORY: GI bleed COMPARISON:CT dated 07/10/2019.TECHNIQUE:CT angiography of the abdomen and pelvis was performed after theuncomplicated administration of 150 mL of Omnipaque IV contrast. MIP andMPR reconstructed images were performed and reviewed.FINDINGS:CTA ABDOMEN/PELVIS:Minimal atherosclerotic disease is noted in the abdominal aorta, visceralarteries of the abdomen, and iliac arteries.Theabdominal aorta is widely patent. The celiac artery, SMA, MEL, andrenal arteries are widely patent.There is fusiform ectasia of the celiacartery measuring 1.3 cm in transverse diameter, grossly unchanged comparedto prior study.The common iliac, internal iliac, external iliac arteries are widelypatent.OTHER FINDINGS: Oral contrast material is scattered throughout the colon limitingevaluation for active GI bleeding. No definite active GI bleeding is seen.There is no focal bowel wall thickening and no bowel dilatation. Smallhiatal hernia.Tree in bud nodularity is noted in the right lower lobe concerning forinfectious process. There is atelectasis in the left lung base.Heart is globally enlarged. A small sliding hiatal hernia is present.A 3.4 cm hypoattenuating lesion is noted in segment 5/6 of theliver. Thelesion does not demonstrate central enhancement but does have faintperipheral enhancement on the delayed phase sequences. No active contrastextravasation, pseudoaneurysm, or arteriovenous fistula in this region.This was not seen on the prior CT.Cholecystectomy changes are noted with no biliary ductal dilatation. Noabscess in the surgical bed.No splenomegaly.No pancreatic mass or ductal dilat ation.No adrenal nodules.Both nome kidneys are atrophic. No renal stones, masses, orhydronephrosis.The urinary bladder is unremarkable.Moderate volume ascites is noted. The fluid in the right subhepatic regionis hyperattenuating concerning for blood products. A percutaneousperitoneal catheter is present with its tip formed in the right lowerquadrant of the abdomen.No acute or aggressive bony lesions are seen. An enostosis is in the rightiliac bone (302:290). Facet arthropathy changes noted in the lumbar spine.IMPRESSION1. No active GI bleeding is seen; however, evaluation is markedly limitedas oral contrast material is noted throughout the the mid to distal smallbowel and colon.2. Mild to moderate volume ascites with hyperattenuating fluid in thesubhepatic region concerning for hemoperitoneum.3. Hypoattenuating, nonenhancing lesion in the right hepatic lobe withfaint peripheral enhancement adjacent to the gallbladder fossa likelyrepresents recent changes from known liver biopsy associated with inflammation. Early abscess formation cannot be excluded. No active bleed,pseudoaneurysm or AV fistula. Consider interval follow up MRI of the liver.Above findings discussed with Dr. Medina from surgery at 11:40 AM, 03/24/2020.4. Tree-in-bud nodularity in the right lower lobe is consistent withinfection and/or aspiration.5. Fusiform ectasia of the celiac artery, unchanged6. Bilateral atrophic kidneysRESIDENT RADIOLOGIST:Dr. Olsen [facility]:Dr. Mark Wren I, Mark Wren MD., have reviewed this study and agree with the abovereport.[facility] HospitalXR CHEST 1 [id number] 16:36:59EXAM: XR CHEST 1 VW HISTORY: cough COMPARISON: None. FINDINGS: The heart is slightly to moderately enlarged to the left, not differentthan noted previously. Mild hilar vascular congestion has developed but thelungs are satisfactorily expanded and clear otherwise. ? [facility], Radiant Results Inft User- 03/24/2020 11:38 AM CDTEXAM: XR CHEST 1 VWHISTORY: cough COMPARISON: None.FINDINGS:The heart is slightly to moderately enlarged to the left, not differentthan noted previously. Mild hilar vascular congestion has developed but thelungs are satisfactorily expanded and clear otherwise.[facility] HospitalTRANSFERRIN2020-06-16 16:16:00 Test Item Value Reference Range Interpretation Comments TRANSFERRN (test code = 7191217810) 152 mg/dL 168-336 L Lab Interpretation (test code = Abnormal 44172-0) [facility] HospitalCOVID-19 (ID NOW RAPID TESTING)2020-03-24 16:08:00 Test Item Value Reference Range Interpretation Comments SARS-CoV-2 Rapid ID NOW Not Detected Not Detected (test code = 23601-8) JALEEL (test code = JALEEL) ID NOW COVID-19 Assay is an isothermal nucleic acid amplification test intended for the qualitative detection of nucleic acid from SARS-CoV-2 viral RNA in nasopharyngeal ([employer] STAFF OFFICER) specimens. It is used under Emergency Use Authorization (EUA) by FDA. The limit of detection (LOD) of the assay is 125 Genome Equivalents/mL. A positive result is indicative of the presence of SARS-CoV-2 RNA. ?Clinical correlation with patient history and other diagnostic information is necessary to determine patient infection status. A negative (Not Detected) result does not preclude SARS-CoV-2 infection. In patients with clinical symptoms and other tests that are consistent with SARS-CoV-2 infection, negative results should be treated as presumptive negative and a new specimen should be tested with alternative PCR molecular test. Invalid: Please collect a new specimen for repeat patient testing if clinically indicated. Lab Interpretation Normal (test code = 11147-3) [facility] HospitalBODY FLUID DIRECT [id number] 15:54:00 Test Item Value Reference Range Interpretation Comments BF COLOR Bloody (test code = 2722402262) BF WBC Count See_Comment [Automated (test code = message] The sy stem [id number]) which generated this result transmitted reference range : /?L. The refere nce range was not u sed to interpret th is result as normal/abnormal . BF RBC Count See_Comment [Automated (test code = message] The sy stem [id number]) which generated this result transmitted reference range : /?L. The refere nce range was not u sed to interpret th is result as normal/abnormal . JALEEL (test The reference range code = JALEEL) and other method performance specifications have not been established for this body fluid. ?The test results must be integrated into the clinical context for interpretation. [facility] HospitalBODY FLUID MANUAL [id number] 15:54:00 Test Item Value Reference Range Interpretation Comments BF SEGS (test code = 6617491396) 34 % BF LYMPHS (test code = 9879365599) 23 % MACROPHAGE (test code = 1973991387) 40 % MESOS (test code = 5397259605) 1 % BF EOS (test code = 9943875098) 1 % BF BASO (test code = 2870093485) 1 % #CELS CNTD (test code = 0305415002) [facility] HospitalCT ABDOMEN PELVIS WO [id number] 15:11:23 Overall agree with outside hospital report impression. Hepatosplenomegaly. 4 cm indeterminate hypoattenuating lesion in segment 6of the liver. Further evaluation with CT or MRI liver protocol recommended. Small volume perihepatic complex fluid concerning for blood products.Evaluation for source of possible bleeding is limited by the lack ofintravenous contrast. Indeterminate 1.2 cm right adrenal nodule. Further evaluation with CTadrenal mass protocol can be obtained if clinically warranted. Bilateral renal atrophy. Preliminary Report Dictated by Resident: Carlitos Kauffman MD., have reviewed this study and agree withthe above report.EXAM: OUTSIDE STUDY REINTERPRETATION OF A CT ABDOMEN AND PELVIS WITHOUTCONTRAST HISTORY: 59-year-old with "abdominal pain, acute, generalized". COMPARISON: CT abdomen and pelvis with and without contrast 07/10/2019. TECHNIQUE: CT of theabdomen and pelvis without contrast was performed [facility] [place] on 03/23/2020. Images were labeled with patient's name andsubmitted to [facility] for reinterpretation. FINDINGS: LOWER THORAX: For detailed report of the intrathoracic findings, pleaserefer to concurrently performed but separately dictated CT of the chest. LIVER: The liver is mildly enlarged, measuring 19 cm. Normal liver contour.Ill-defined hypoattenuating lesion is noted in segment 6 of the livermeasuring approximately 4 cm. GALLBLADDER AND BILIARY TREE: Cholecystectomy. No biliary ductal dilation. SPLEEN: The spleen is enlarged, m easuring 14.3 cm. PANCREAS: No ductal dilation. ADRENAL GLANDS: 1.2 cm right indeterminate adrenal nodule is seen (6:110).No left adrenal nodule. KIDNEYS: Bilateral atrophy of the nome kidneys. A 1.6 cm simple cyst isnoted in the interpolar region of the left kidney (Bosniak 1). Nohydronephrosis, stones, or masses. PERITONEUM AND RETROPERITONEUM: No free air. Small volume perihepaticcomplex fluid is seen. Peritoneal dialysis catheter is present in the rightlower quadrant. LYMPH NODES: No enlargedlymph nodes are identified in the abdomen orpelvis.. GI TRACT: The distal esophagus is circumferentially thickened. No dilationor wall thickening. Large stool burden is noted in the sigmoid colon andrectum. PELVIS/BLADDER: The urinary bladder is distended with mild circumferentialthickening. Scatteredpelvic phleboliths are seen. VESSELS: Diffuse atherosclerosis is present. BONES AND SOFT TISSUES: No suspicious lytic or sclerotic bony lesions. Noacute fracture. [facility], Radiant Results Inft User - 03/24/2020 10:12 AM CDTEXAM: OUTSIDE STUDY REINTERPRETATION OF A CT ABDOMEN AND PELVIS WITHOUTCONTRASTHISTORY: 59-year-old with "abdominal pain, acute, generalized".COMPARISON: CT abdomen and pelvis with and without contrast 07/10/2019.TECHNIQUE: CT of the abdomen and pelvis without contrast was performed [facility] [place] on 03/23/2020. Images were labeled with patient's name andsubmitted to [facility] for reinterpretation. FINDINGS:LOWER THORAX: For detailed report of the intrathoracic findings, pleasereferto concurrently performed but separately dictated CT of the chest.LIVER: The liver is mildly enlarged, measuring 19 cm. Normal liver contour.Ill-defined hypoattenuating lesion is noted in segment 6 of the livermeasuring approximately 4 cm.GALLBLADDER AND BILIARY TREE: Cholecystectomy. No biliary ductal dilation. SPLEEN: The spleen is enlarged, measuring 14.3 cm.PANCREAS: No ductal dilation.ADRENAL GLANDS: 1.2 cm right indeterminate adrenal nodule is seen (6:110).No left adrenal nodule. KIDNEYS: Bilateral atrophy of the nome kidneys. A 1.6 cm simple cyst isnoted in the interpolar region of the left kidney (Bosniak 1). Nohydronephrosis, stones, or masses.PERITONEUM AND RETROPERITONEUM: No free air. Small volume perihepaticcomplex fluid is seen. Peritoneal dialysis catheter is present in the rightlower quadrant.LYMPH NODES: No enlarged lymph nodes are identified in the abdomen orpelvis..GI TRACT:The distal esophagus is circumferentially thickened. No dilationor wall thickening. Large stool burden is noted in the sigmoid colon andrectum.PELVIS/BLADDER: The urinary bladder is distended with mild circumferentialthickening. Scattered pelvic phleboliths are seen. VESSELS: Diffuse atherosclerosis is present.BONES AND SOFT TISSUES: No suspicious lytic or sclerotic bony lesions. Noacute fracture.IMPRESSIONOverall agree with outside hospital report impression.Hepatosplenomegaly. 4 cm indeterminate hy poattenuating lesion in segment 6of the liver. Further evaluation with CT or MRI liver protocol recommended.Small volume perihepatic complex fluid concerning for blood products.Evaluation for source ofpossible bleeding is limited by the lack ofintravenous contrast.Indeterminate 1.2 cm right adrenal nodule. Further evaluation with CTadrenal mass protocol can be obtained if clinically warranted.Bilateral renal atrophy.Preliminary Report Dictated by Resident: Carlitos Magallanes MD., have reviewed this study and agree withthe above report.[facility] HospitalMAGNESIUM2020-06-16 14:42:00 Test Item Value Reference Range Interpretation Comments MAGNESIUM (test code = 8138967058) 3.3 mg/dL 1.7-2.4 H Lab Interpretation (test code = Abnormal 42435-5) [facility] HospitalPHOSPHORUS2020-06-16 14:42:00 Test Item Value Reference Range Interpretation Comments PHOSPHORUS (test code = 6080167070) 9.1 mg/dL 2.5-5 H Lab Interpretation (test code = Abnormal 20494-6) [facility] HospitalCOMP. METABOLIC PANEL (53848)2020-03-24 14:42:00 Test Item Value Reference Range Interpretation Comments NA (test code = 128 mmol/L 135-145 L 9214033507) K (test code = 5.0 mmol/L 3.5-5 4109084298) CL (test code = 91 mmol/L 98-108 L 4822057207) CO2 TOTAL (test code = 26 mmol/L 23-31 4774406913) AGAP (test code = 2-16 3952713867) BUN (test code = 74 mg/dL 7-23 H 4263787698) GLUCOSE (test code = 78 mg/dL 70-110 0383420706) CREATININE (test code = 12.95 mg/dL 0.6-1.25 H 2808222921) TOTAL BILI (test code = 0.4 mg/dL 0.1-1.3 8100147740) CALCIUM (test code = 8.8 mg/dL 8.6-10.6 2436359024) T PROTEIN (test code = 5.4 g/dL 6.3-8.2 L 3642305187) ALBUMIN (test code = 2.9 g/dL 3.5-5 L 7829364497) ALK PHOS (test code = 85 U/L 34-122 9256211990) ALTv (test code = 22 U/L 5-50 1742-6) AST(SGOT) (test code = 31 U/L 13-40 2857817970) eGFR Calculation mL/min/1.73m2 (Non-) (test code = 2314642035) eGFR Calculation mL/min/1.73m2 () (test code = 2138622879) JALEEL (test code = JALEEL) Association of Glomerular Filtration Rate (GFR) and Staging of Kidney Disease* + --+ --+ ------+| GFR (mL/min/1.73 m2) ?| With Kidney Damage ?| ?Without Kidney Damage+ --------+ --------+ +| ?>90 ?| ?Stage one ?| ? Normal ?+ ---+ ---+ -------+| ?60-89 ?| ?Stage two ?| ? Decreased GFR ? + --+ --+ ------+| ?30-59 ?| ?Stage three ?| ? Stage three ? + --+ --+ ------+| ?15-29 ?| ?Stage four ? | ? Stage four ?+ ---+ ---+ -------+| ?<15 (or dialysis) ? ?| ?Stage five ? | ? Stage five ?+ ---+ ---+ -------+ *Each stage assumes the associated GFR level has been in effect for at least three months. ?Stages 1 to 5, with or without kidney disease, indicate chronic kidney disease. Notes: Determination of stages one and two (with eGFR >59mL/min/1.73 m2) requires estimation of kidney damage for at least three months as defined by structural or functional abnormalities of the kidney, manifested by either:Pathological abnormalities or Markers of kidney damage (including abnormalities in the composition of the blood or urine or abnormalities in imaging tests). Lab Interpretation Abnormal (test code = 54509-4) [facility] HospitalPROFILE / [id number] 12:54:00 Test Item Value Reference Range Interpretation Comments WBC (test code = 6690-2) See_Comment H [A utomated message] The system [employer] generated this result transmit emerson reference range : 4.20 - 10.70 10*3/?L. The reference range was not used to interpret this result as normal/abnormal . RBC (test code = 789-8) See_Comment L [Au tomated message] The system [employer] generated this result transmit emerson reference range : 4.26 - 5.52 10* 6/?L. The reference r yared was not used to interpret this result as normal/abnormal . HGB (test code = 718-7) 7.8 g/dL 12.2-16.4 L HCT (test code = 4544-3) 23.9 % 38.4-49.3 L MCH (test code = 785-6) 28.7 pg 26.1-32.7 MCV (test code = 787-2) 87.9 fL 81.7-95.6 MCHC (test code = 786-4) 32.6 g/dL 31.2-35 PLT (test code = 777-3) See_Comment [Au tomated message] The system [employer] generated this result transmit emerson reference range : 150 - 328 10*3/?L. The reference range was not used to interpret this result as normal/abnormal . MPV (test code = 8.7 fL 9.8-13 L 72926-6) RDW-CV (test code = 15.9 % 12.1-15.4 H 788-0) RDW-SD (test code = 47.6 fL 38.5-51.6 16487-4) NRBC x10^3 (test code = <0.01 See_Comment [Au tomated message] 5424193092) The system [employer] generated this result transmit emerson reference range : 10*3/?L. The reference range was not used to interpret this result as normal/abnormal . NRBC/100 WBC (test code See_Comment [Au tomated message] = 3556066970) The system [facility] generated this result transmit emerson reference range : 0.0 - 10.0 /100 WBC s. The reference r yared was not used to interpret this result as normal/abnormal . IPF % (test code = 7495712776) Lab Interpretation (test Abnormal code = 39353-0) [facility] HospitalPROFILE / [id number] 07:35:00 Test Item Value Reference Range Interpretation Comments WBC (test code = 6690-2) See_Comment [A utomated message] The system [facility] generated this result transmit emerson reference range : 4.20 - 10.70 10*3/?L. The reference range was not used to interpret this result as normal/abnormal . RBC (test code = 789-8) See_Comment L [Au tomated message] The system [facility] generated this result transmit emerson reference range : 4.26 - 5.52 10* 6/?L. The reference r yared was not used to interpret this result as normal/abnormal . HGB (test code = 718-7) 7.5 g/dL 12.2-16.4 L HCT (test code = 4544-3) 22.8 % 38.4-49.3 L MCH (test code = 785-6) 29.1 pg 26.1-32.7 MCV (test code = 787-2) 88.4 fL 81.7-95.6 MCHC (test code = 786-4) 32.9 g/dL 31.2-35 PLT (test code = 777-3) See_Comment [Au tomated message] The system [facility] generated this result transmit emerson reference range : 150 - 328 10*3/?L. The reference range was not used to interpret this result as normal/abnormal . MPV (test code = 9.3 fL 9.8-13 L 42916-6) RDW-CV (test code = 15.7 % 12.1-15.4 H 788-0) RDW-SD (test code = 47.0 fL 38.5-51.6 14670-4) NRBC x10^3 (test code = <0.01 See_Comment [Au tomated message] 4908461273) The system [employer] generated this result transmit emerson reference range : 10*3/?L. The reference range was not used to interpret this result as normal/abnormal . NRBC/100 WBC (test code See_Comment [Au tomated message] = 2018200797) The system [employer] generated this result transmit emerson reference range : 0.0 - 10.0 /100 WBC s. The reference r yared was not used to interpret this result as normal/abnormal . IPF % (test code = 5162765388) Lab Interpretation (test Abnormal code = 84025-6) [facility] HospitalFERRITIN [id number] 02:29:00 Test Item Value Reference Range Interpretation Comments FERRITIN (test code = 863.0 ng/mL 18-464 H 4526288737) JALEEL (test code = JALEEL) Biotin has been reported to cause a negative bias, interpret results relative to patient's use of biotin. Lab Interpretation (test Abnormal code = 29223-9) [facility] HospitalTOTAL IRON BINDING [id number] 02:00:00 Test Item Value Reference Range Interpretation Comments TIBC (test code = 4397746463) 228 ug/dL 250-410 L % FE SAT (test code = 6808717885) 23 % 20-50 Lab Interpretation (test code = Abnormal 26965-3) [facility] HospitalIRON2020-06-16 01:49:00 Test Item Value Reference Range Interpretation Comments IRON (test code = 1228746264) 52 ug/dL 50-160 Lab Interpretation (test code = Normal 45609-4) [facility] HospitalPROFILE / [id number] 01:26:00 Test Item Value Reference Range Interpretation Comments WBC (test code = 6690-2) See_Comment H [A utomated message] The system [employer] generated this result transmit emerson reference range : 4.20 - 10.70 10*3/?L. The reference range was not used to interpret this result as normal/abnormal . RBC (test code = 789-8) See_Comment L [Au tomated message] The system [employer] generated this result transmit emerson reference range : 4.26 - 5.52 10* 6/?L. The reference r yared was not used to interpret this result as normal/abnormal . HGB (test code = 718-7) 7.7 g/dL 12.2-16.4 L HCT (test code = 4544-3) 23.3 % 38.4-49.3 L MCH (test code = 785-6) 29.2 pg 26.1-32.7 MCV (test code = 787-2) 88.3 fL 81.7-95.6 MCHC (test code = 786-4) 33.0 g/dL 31.2-35 PLT (test code = 777-3) See_Comment [Au tomated message] The system [employer] generated this result transmit emerson reference range : 150 - 328 10*3/?L. The reference range was not used to interpret this result as normal/abnormal . MPV (test code = 8.9 fL 9.8-13 L 39038-0) RDW-CV (test code = 15.0 % 12.1-15.4 788-0) RDW-SD (test code = 46.5 fL 38.5-51.6 97402-4) NRBC x10^3 (test code = <0.01 See_Comment [Au tomated message] 2906755661) The system [employer] generated this result transmit emerson reference range : 10*3/?L. The reference range was not used to interpret this result as normal/abnormal . NRBC/100 WBC (test code See_Comment [Au tomated message] = 3584110459) The system [facility] generated this result transmit emerson reference range : 0.0 - 10.0 /100 WBC s. The reference r yared was not used to interpret this result as normal/abnormal . IPF % (test code = 2585833819) Lab Interpretation (test Abnormal code = 06884-0) [facility] HospitalBODY FLUID DIRECT [id number] 21:58:00 Test Item Value Reference Range Interpretation Comments BF COLOR Grossly Bloody (test code = 5941501069) BF WBC Count See_Comment [Automated (test code = message] The sy stem [id number]) which generated this result transmitted reference range : /?L. The refere nce range was not u sed to interpret th is result as normal/abnormal . BF RBC Count See_Comment [Automated (test code = message] The sy stem [id number]) which generated this result transmitted reference range : /?L. The refere nce range was not u sed to interpret th is result as normal/abnormal . JALEEL (test The reference range code = JALEEL) and other method performance specifications have not been established for this body fluid. ?The test results must be integrated into the clinical context for interpretation. [facility] HospitalBODY FLUID MANUAL [id number] 21:58:00 Test Item Value Reference Range Interpretation Comments BF SEGS (test code = 29 % 9564638877) BF LYMPHS (test code = 54 % 9145029438) BF REACTIVE LYMPHS % 1 % (test code = 0097317824) MACROPHAGE (test code = 15 % Leuk ophages observed. [id number]) MESOS (test code = 1 % Reactive Mesothelial [id number]) observed. #CELS CNTD (test code = 3063467388) [facility] Packed RBC (in units), 1 Units 2020-03-23 21:26:21 Test Item Value Reference Range Interpretation Comments Cross Match Result Compatible (test code = 4409) ISBT Blood Type Code (test code = 459064) Unit Blood Type (test O Pos code = 4410) Unit Number (test [id number] code = 4411) Blood Expiration Date & Time (test code = 991703) Status Information Issued (test code = 4412) Product Red Blood Cells Identification (test code = 4413) Product Code (test [id number] Performed at [facility] code = 4414) Laboratory Services - [facility] Blood Xqhc542 [facility] s [address]Vamn Free: [phone] A No. [id number] [facility] HospitalType and Screen - ONCE [id number] 20:49:43 Test Item Value Reference Range Interpretation Comments ABO & RH (test code O POSITIVE Performe d at [facility] = 20) Laboratory Serv [facility] Blood Bank3 [address] [facility] s [address]Pdlc Free: [phone] A No. [id number] IAT (test code = Negative Performed a t [facility] 1185) Laboratory Serv [facility] Blood Bank3 [address] [place], [place] [address]Tai zavala [address]Gans Free: [phone] A No. [id number] [facility] WITH EVMHTHPAOBQL9279-45-55 20:47:00 Test Item Value Reference Range Interpretation Comments WBC (test code = See_Comment [Automated 6690-2) message] The sy stem which generated this result transmitted reference range : 4.20 - 10.70 10*3/?L. The reference range was not used to interpret this result as normal/abnormal . RBC (test code = See_Comment L [Automated 789-8) message] The sy stem which generated this result transmitted reference range : 4.26 - 5.52 10*6/?L. The reference range was not used to interpret this result as normal/abnormal . HGB (test code = 6.7 g/dL 12.2-16.4 L 718-7) HCT (test code = 21.0 % 38.4-49.3 L 4544-3) MCV (test code = 89.4 fL 81.7-95.6 787-2) MCH (test code = 28.5 pg 26.1-32.7 785-6) MCHC (test code = 31.9 g/dL 31.2-35 786-4) RDW-SD (test code = 46.4 fL 38.5-51.6 91662-8) RDW-CV (test code = 14.9 % 12.1-15.4 788-0) PLT (test code = See_Comment [Automated 777-3) message] The sy stem which generated this result transmitted reference range : 150 - 328 10*3/ ?L. The reference r yared was not used to interpret this result as normal/abnormal . MPV (test code = 8.9 fL 9.8-13 L 78825-4) NRBC/100 WBC (test See_Comment [Automat ed code = 7076624267) message] The system which generated this result transmitted reference range : 0.0 - 10.0 /100 WBCs. The refer ence range was not u sed to interpret th is result as normal/abnormal . NRBC x10^3 (test code <0.01 See_Comment [Auto mated = 9724959947) message] The s ystem which generated this result transmitted reference range : 10*3/?L. The reference range was not used to interpret this result as normal/abnormal . GRAN MAT (NEUT) % 73.1 % (test code = 770-8) IMM GRAN % (test code 3.10 % = 8929860146) LYMPH % (test code = 13.0 % 736-9) MONO % (test code = 7.7 % 5905-5) EOS % (test code = 2.6 % 713-8) BASO % (test code = 0.5 % 706-2) GRAN MAT x10^3(ANC) 7.31 10*3/uL 1.99-6.95 H (test code = 6841574193) IMM GRAN x10^3 (test 0.31 10*3/uL 0-0.06 H code = 4179359122) LYMPH x10^3 (test code 1.30 10*3/uL 1.09-3.23 = 731-0) MONO x10^3 (test code 0.77 10*3/uL 0.36-1.02 = 742-7) EOS x10^3 (test code = 0.26 10*3/uL 0.06-0.53 711-2) BASO x10^3 (test code 0.05 10*3/uL 0.01-0.09 = 704-7) ELLIPTO/OVAL (test 2+ See_Comment A [Automat ed code = 28701-4) message] The system which generated this result transmitted reference range : (none). The reference range was not used to interpret this result as normal/abnormal . POLYCHROMASIA (test 2+ See_Comment [Automa emerson code = 81766-7) message] The system which generated this result transmitted reference range : 2+. The referen ce range was not u sed to interpret th is result as normal/abnormal . HYPERSEG NEUTS (test Present See_Comment A [Autom ated code = 765-8) message] The s ystem which generated this result transmitted reference range : (none). The reference range was not used to interpret this result as normal/abnormal . Lab Interpretation Abnormal (test code = 72027-9) [facility] HospitalCOMP. METABOLIC PANEL (48659)2020-03-23 20:04:00 Test Item Value Reference Range Interpretation Comments NA (test code = 127 mmol/L 135-145 L 2614916790) K (test code = 4.6 mmol/L 3.5-5 6335173476) CL (test code = 89 mmol/L 98-108 L 6991457205) CO2 TOTAL (test code = 22 mmol/L 23-31 L 0151427866) AGAP (test code = 2-16 1500678091) BUN (test code = 85 mg/dL 7-23 H 9895236830) GLUCOSE (test code = 83 mg/dL 70-110 1224742072) CREATININE (test code = 14.79 mg/dL 0.6-1.25 H 1398614650) TOTAL BILI (test code = 0.4 mg/dL 0.1-1.8 8959272814) CALCIUM (test code = 8.7 mg/dL 8.6-10.6 8471930850) T PROTEIN (test code = 5.4 g/dL 6.3-8.2 L 0553155749) ALBUMIN (test code = 2.9 g/dL 3.5-5 L 8843798117) ALK PHOS (test code = 97 U/L 34-122 6951772241) ALTv (test code = 36 U/L 5-50 1742-6) AST(SGOT) (test code = 43 U/L 13-40 H 8186633701) eGFR Calculation mL/min/1.73m2 (Non-) (test code = 0506594946) eGFR Calculation mL/min/1.73m2 () (test code = 2617842957) JALEEL (test code = JALEEL) Association of Glomerular Filtration Rate (GFR) and Staging of Kidney Disease* + --+ --+ ------+| GFR (mL/min/1.73 m2) ?| With Kidney Damage ?| ?Without Kidney Damage+ --------+ --------+ +| ?>90 ?| ?Stage one ?| ? Normal ?+ ---+ ---+ -------+| ?60-89 ?| ?Stage two ?| ? Decreased GFR ? + --+ --+ ------+| ?30-59 ?| ?Stage three ?| ? Stage three ? + --+ --+ ------+| ?15-29 ?| ?Stage four ? | ? Stage four ?+ ---+ ---+ -------+| ?<15 (or dialysis) ? ?| ?Stage five ? | ? Stage five ?+ ---+ ---+ -------+ *Each stage assumes the associated GFR level has been in effect for at least three months. ?Stages 1 to 5, with or without kidney disease, indicate chronic kidney disease. Notes: Determination of stages one and two (with eGFR >59mL/min/1.73 m2) requires estimation of kidney damage for at least three months as defined by structural or functional abnormalities of the kidney, manifested by either:Pathological abnormalities or Markers of kidney damage (including abnormalities in the composition of the blood or urine or abnormalities in imaging tests). Lab Interpretation Abnormal (test code = 87845-7) [facility] HospitalPROTHROMBIN TIME / [id number] 18:00:00 Test Item Value Reference Range Interpretation Comments PROTIME PATIENT (test See_Comment [Auto mated message] code = 5964-2) The system [employer] generated this result transmitted ref erence range: 10.1 - 1 2.6 Seconds. The re ference range was not u sed to interpret this result as normal/abnor mal. INR (test code = 6301-6) Nor mal INR <1.1; Warfarin Therap eutic range 2.0 to 3. 0 or 2.5 to 3.5, dep ending upon the indica tions. Lab Interpretation (test Normal code = 85309-5) [facility] HospitalFIBRINOGEN2020-06-15 18:00:00 Test Item Value Reference Range Interpretation Comments Fibrinogen (test code = 9671027940) 458 mg/dL 167-453 H Lab Interpretation (test code = Abnormal 29463-2) [facility] HospitalaPTT2020-06-15 18:00:00 Test Item Value Reference Range Interpretation Comments APTT Patient (test code = See_Comment [ Automated message] 3173-2) The system [employer] h generated this result transmitted ref erence range: 26 - 36 Seconds. The re ference range was not u sed to interpret this result as normal/abnor mal. Lab Interpretation (test Normal code = 35047-8) [facility] YXCSCLE8333-98-54 06:28:00Negative (03/23/20 1:28 AM)[facility] XRLGQYR7322-33-42 06:28:00Negative (03/23/20 1:28 AM)[facility] AKSWERL9970-72-60 06:28:00Negative (03/23/20 1:28 AM)[facility] OJNLZDM5465-18-64 06:23:00Product available 2(03/23/20 1:23 AM)[facility] VMJBOSZ2760-28-05 06:23:00Product available 2(03/23/20 1:23 AM)[facility] RESULTS 2020-03-23 06:23:00Product available 2(03/23/20 1:23 AM)[facility]annB[facility] FCMBJZ0826-50-62 06:08:04435288Pissmctr HermannBODY NKMWHV5841-86-05 06:08:00 1316[facility] ZUGLUP3638-23-58 06:08:0037[facility] FLUIDS 2020-03-23 06:08:004[facility] WGKODV9627-33-22 06:08:0054[facility] SOGIMW4029-70-90 06:08:003[facility] LPXFLP9168-01-13 06:08:002[facility] MFYWVV9375-71-09 06:08:00Bloody *ABN*(03/23/20 1:08 AM)[facility] PBZWWU1008-96-61 06:08:00Red *ABN*(03/23/20 1:08 AM) [facility] VWACDE8430-19-14 06:08:00Yellow *ABN*(03/23/20 1:08 AM) [facility] JBTICH3975-05-77 06:08:00[place] (03/23/20 1:08 AM)[facility]annCHEM HEBJY3122-81-05 06:08:0098[facility]annCHE[facility] VHHJJ0636-43-22 06:08:0081[facility]annCHEM QDVDO8234-00-83 06:08:0014.40[facility]annCHE[facility] LFVRO6816-11-15 06:08:72729Hyqjwdqi HermannCHEM FHJGK2057-87-29 06:08:004.8 [facility]annCHE[facility] ROKWR1527-13-77 06:08:0090[facility]annCHEM PANEL 2020-03-23 06:08:0027[facility]annCHE[facility] HTPXJ2709-21-63 06:08:008.7[facility]annCHE[facility] MLZWE1834-63-99 06:08:005.7[facility]annCHE[facility] HPCSA9800-31-60 06:08:002.5[facility]annCHEM OSQHN0069-24-14 06:08:0032[facility]annCHE[facility] LXIYA3287-26-22 06:08:0036[facility]annCHEM GKFPY8512-80-36 06:08:37652 [facility]annCHE[facility] SJHTO7591-69-71 06:08:000.5[facility]annCHEM PANEL 2020-03-23 06:08:0016.8[facility]annCHEM ZXMHZ3831-72-46 06:08:00 Test Item Value Reference Range Interpretation Comments B/C Ratio (test code = B/C Ratio) 6 1 6-25 [facility]CHE[facility] HKQUV7462-12-16 06:08:003.2[facility]annCHEM PANEL 2020-03-23 06:08:00 Test Item Value Reference Range Interpretation Comments A/G Ratio (test code = A/G Ratio) 0.8 1 0.7-1.6 [facility]CHE[facility] BCXBO9774-29-36 06:08:003[facility]annCHEM PANEL 2020-03-23 06:08:000.6[facility] BnwmhcvHVVSHFFDLD0325-70-88 06:08:0011.5[facility] YyzbbtzFGUOMELUXQ3065-71-97 06:08:002.12[facility] SuknigzNGLHAKVGIU2905-60-68 06:08:006.1[facility] VfvvvofJINAEUVOOU4280-54-79 06:08:0018.4[facility] XPUWUCSUDO3492-98-13 06:08:0086.5[facility] UiqmiepEIPUUFNQRR7823-55-38 06:08:00 Test Item Value Reference Range Interpretation Comments MCH (test code = MCH) 28.6 pg 27.0-31.0 [facility] QyxwjiaQJNOWCCGLY4335-25-92 06:08:0033.1[facility]annHEMATOLOGY 2020-03-23 06:08:0015.9[facility] MjfptljDHVKYDWIBT3541-20-75 06:08:32442Rwliggzd YgxnwssNOEXEMXJME2746-81-26 06:08:006.8[facility] EwkjkimMMTUEFONOK1645-99-52 06:08:00 Test Item Value Reference Range Interpretation Comments PT (test code = PT) 13.9 s 12.0-14.7 [facility] OzysmhtDMAPUQQQCC0419-72-96 06:08:00 Test Item Value Reference Range Interpretation Comments INR (test code = INR) 1.07 1 0.85-1.17 [facility] BwronkwMJHXDEFYFM6003-45-15 06:08:00Normal (03/23/20 1:08 AM)[facility] UxnldvaFDMAKMKYWH0886-88-05 06:08:00Normal (03/23/20 1:08 AM)[facility] OHFKIYGPKI2676-90-95 06:08:0080.9[facility] ZjoyegbPRFWNGCTHK4066-51-86 06:08:00 9.1[facility] XyjadecRGKUZFTWXP0647-20-25 06:08:007.3[facility] HermannHEMATOLOGY 2020-03-23 06:08:002.0[facility] CygewvdPTUBLIYBVZ1361-09-48 06:08:000.7[facility] LbtphkmECWOCSELJP7451-22-81 06:08:009.3[facility] FbcmnaaTLRSDTWMHX3427-35-94 06:08:001.0[facility] ZaxoovyXMIOJCFZXV6115-74-16 06:08:000.8[facility] GJNUAIRZVP6670-49-67 06:08:000.2[facility] UmjnbubSAVIKKYTJR8589-99-37 06:08:000.1 [facility] JbjrjoyMCNTMFZUVX5399-83-85 06:08:002+ *ABN*(03/23/20 1:08 AM)[facility] GjzttboTDKUIHWZGA9119-44-03 06:08:001+ *ABN*(03/23/20 1:08 AM)[facility] WIVQHIINSX7243-25-05 06:08:001+ *ABN*(03/23/20 1:08 AM)[facility]annHEMATOLOGY 2020-03-23 06:08:00Rare *ABN*(03/23/20 1:08 AM)[facility]annBODY FLUIDS 2020-03-23 06:08:57725730Ezcfajwc HermannBODY HBGIJU4853-65-92 06:08:630253 [facility] FIVZMJ9851-93-84 06:08:0037[facility]annB[facility] FLUIDS 2020-03-23 06:08:004[facility] VHKCMI4241-12-96 06:08:0054[facility] RPBGHY7407-70-61 06:08:003[facility] QPZEHX1887-63-08 06:08:002[facility] VAWSKF5455-82-90 06:08:00Bloody *ABN*(03/23/20 1:08 AM)[facility] TTNBZK1130-93-54 06:08:00Red *ABN*(03/23/20 1:08 AM) [facility] QVGDUG7124-24-16 06:08:00Yellow *ABN*(03/23/20 1:08 AM) [facility] DKCVNZ3028-12-79 06:08:00[place] (03/23/20 1:08 AM)[facility]annCHEM HPTZK3143-15-61 06:08:0098[facility]annCHEM GXWXD4998-86-24 06:08:0081[facility]annCHEM SUOVF3121-41-74 06:08:0014.40[facility]annCHEM CSYYH6241-28-49 06:08:23827Xtjrlvsv HermannCHEM VMESQ5934-79-99 06:08:004.8 [facility]annCHEM MLBJR5837-80-90 06:08:0090[facility] HermannCHEM PANEL 2020-03-23 06:08:0027[facility]annCHEM UGVWW5151-51-96 06:08:008.7[facility]annCHEM IOCUT9149-95-48 06:08:005.7[facility]annCHEM XJAPB7251-89-91 06:08:002.5[facility]annCHEM RUHYI6644-48-64 06:08:0032[facility]annCHEM CBQRE5974-65-43 06:08:0036[facility]annCHEM UWXJS6473-20-20 06:08:49730 [facility]annCHE[facility] LKOAS6602-49-78 06:08:000.5[facility]annCHEM PANEL 2020-03-23 06:08:0016.8[facility]annCHEM VJYLE5008-78-83 06:08:00 Test Item Value Reference Range Interpretation Comments B/C Ratio (test code = B/C Ratio) 6 1 6-25 [facility]annCHEM HUSVU4252-68-66 06:08:003.2[facility]annCHEM PANEL 2020-03-23 06:08:00 Test Item Value Reference Range Interpretation Comments A/G Ratio (test code = A/G Ratio) 0.8 1 0.7-1.6 [facility]annCHEM UYQLV1883-22-33 06:08:003[facility]annCHEM PANEL 2020-03-23 06:08:000.6[facility] RucxiehIDGXYSNOIQ8872-03-93 06:08:0011.5[facility] SxzjubsLJOFFDRUPH9341-43-35 06:08:002.12[facility] AqaegwcPBNDUBOAXP6112-42-22 06:08:006.1[facility] FixzxkiUYDILTUUEQ0868-46-72 06:08:0018.4[facility] VRAZVBREOC1713-69-79 06:08:0086.5[facility] BycpdwiBTLCTUKGZN0377-86-99 06:08:00 Test Item Value Reference Range Interpretation Comments MCH (test code = MCH) 28.6 pg 27.0-31.0 [facility] YebhvlwVMIJDPMGUV3781-67-27 06:08:0033.1[facility] HermannHEMATOLOGY 2020-03-23 06:08:0015.9[facility] LylyfcsOTFDYTAXLC0134-34-22 06:08:24078Cumoafmf RzjfjnyMPZHYCKNSK8387-99-76 06:08:006.8[facility] IguvomiSGRYBTOPRQ1697-18-96 06:08:00 Test Item Value Reference Range Interpretation Comments PT (test code = PT) 13.9 s 12.0-14.7 [facility] SrdpfcuJGZYQUZXNO6234-11-42 06:08:00 Test Item Value Reference Range Interpretation Comments INR (test code = INR) 1.07 1 0.85-1.17 [facility] KpxzsnoDMUCDOWVZA8036-15-32 06:08:00Normal (03/23/20 1:08 AM)[facility] VfdakjcJYXJYFLKNU5437-11-56 06:08:00Normal (03/23/20 1:08 AM)[facility] ZDNJQOPLCG3425-88-11 06:08:0080.9[facility] YloakcnCNKICIRGZH8632-76-90 06:08:00 9.1[facility] UbgavwhZAWDZVJRRI7174-94-27 06:08:007.3[facility] HermannHEMATOLOGY 2020-03-23 06:08:002.0[facility] FdjarpyFXQNGWHLMS4032-17-27 06:08:000.7[facility] GedqggxRVMPNHMIDH7401-21-17 06:08:009.3[facility] FuygoqcGVZLUMDNRC5200-59-26 06:08:001.0[facility] VkwpakoADJZDMGBUJ2619-39-83 06:08:000.8[facility] FLBRJEQHYL8810-12-47 06:08:000.2[facility] HnvrrmtPRXFSJNRER3681-49-59 06:08:000.1 [facility] HmlldleNOEKKATLZT4821-58-08 06:08:002+ *ABN*(03/23/20 1:08 AM)[facility] RdynmcvWYJDVKWQKT6592-07-26 06:08:001+ *ABN*(03/23/20 1:08 AM)[facility] RFQLBIVYXB2447-35-08 06:08:001+ *ABN*(03/23/20 1:08 AM)[facility]annHEMATOLOGY 2020-03-23 06:08:00Rare *ABN*(03/23/20 1:08 AM)[facility]annBODY FLUIDS 2020-03-23 06:08:83915802Naegamsd HermannBODY GIBWLP2600-12-59 06:08:864366 [facility] LIVZIG6889-35-15 06:08:0037[facility]annB[facility] FLUIDS 2020-03-23 06:08:004[facility] MQPRKO8632-46-06 06:08:0054[facility]annB[facility] KNNWDX2210-05-36 06:08:003[facility]annB[facility] MQHBUW9734-33-02 06:08:002[facility]annB[facility] RMCDGA1203-74-13 06:08:00Bloody *ABN*(03/23/20 1:08 AM)[facility]annB[facility] UCTCIM9064-24-28 06:08:00Red *ABN*(03/23/20 1:08 AM) [facility] YGEVHE9709-07-39 06:08:00Yellow *ABN*(03/23/20 1:08 AM) [facility] ZHQFDP9190-74-97 06:08:00[place] (03/23/20 1:08 AM)[facility]annCHEM ELMRN9876-74-94 06:08:0098[facility] HermannCHEM VMBGC2873-85-06 06:08:0081[facility] HermannCHEM HICHE4344-52-16 06:08:0014.40[facility] HermannCHEM UEUQK8006-00-15 06:08:25432Fqjaacop HermannCHEM SHJPR7328-18-75 06:08:004.8 [facility]annCHE[facility] AYQOG1764-32-96 06:08:0090[facility] HermannCHEM PANEL 2020-03-23 06:08:0027[facility] HermannCHEM KIRJU0286-84-17 06:08:008.7[facility] HermannCHEM WUPVA8955-54-77 06:08:005.7[facility]annCHEM RYYKJ6923-07-30 06:08:002.5[facility]annCHEM YVXKH2823-59-62 06:08:0032[facility]annCHEM WEZKU4724-81-41 06:08:0036[facility]annCHEM ASGSU0477-69-25 06:08:87751 [facility] HermannCHEM BBQJG0568-45-03 06:08:000.5[facility] HermannCHEM PANEL 2020-03-23 06:08:0016.8[facility] HermannCHEM DUDCE7579-52-58 06:08:00 Test Item Value Reference Range Interpretation Comments B/C Ratio (test code = B/C Ratio) 6 1 6-25 [facility]annCHE[facility] NDNBX9302-64-30 06:08:003.2[facility]annCHEM PANEL 2020-03-23 06:08:00 Test Item Value Reference Range Interpretation Comments A/G Ratio (test code = A/G Ratio) 0.8 1 0.7-1.6 [facility] HermannCHEM NNQSF6316-45-09 06:08:003[facility] HermannCHEM PANEL 2020-03-23 06:08:000.6[facility] EpihrccQWNADVPQXX5978-97-95 06:08:0011.5[facility] QrmnhcvGIRHYCFWXN2680-22-05 06:08:002.12[facility] BgfkbaiAYNZOVJZWT1793-55-97 06:08:006.1[facility] LmwliklFBTALWSDML7756-97-22 06:08:0018.4[facility] ZICKEAIVAC6040-53-35 06:08:0086.5[facility] PwadbxxHGGGXTSKKW4776-75-80 06:08:00 Test Item Value Reference Range Interpretation Comments MCH (test code = MCH) 28.6 pg 27.0-31.0 [facility] VrxwzniPABRWNDUBQ9280-18-06 06:08:0033.1[facility] HermannHEMATOLOGY 2020-03-23 06:08:0015.9[facility] FtrrldyMMYKXEZFVH6424-73-08 06:08:17580Fljqoovk TezoidlOYBWWIEITA8530-92-52 06:08:006.8[facility] AmjvskpAJSAQJEGTR5279-03-19 06:08:00 Test Item Value Reference Range Interpretation Comments PT (test code = PT) 13.9 s 12.0-14.7 [facility] ZzyfapaVNCEMEHWNA4411-69-93 06:08:00 Test Item Value Reference Range Interpretation Comments INR (test code = INR) 1.07 1 0.85-1.17 [facility] RvbrrzmBZKRTSNUNL9788-61-07 06:08:00Normal (03/23/20 1:08 AM)[facility] EvephglMONQZNHMQA1762-23-76 06:08:00Normal (03/23/20 1:08 AM)[facility] MDLIRRHFUX2962-26-17 06:08:0080.9[facility] WqwoeisHMCBHXJDCW1997-76-27 06:08:00 9.1[facility] DdkxfdcIACQKEVEMY0640-12-38 06:08:007.3[facility] HermannHEMATOLOGY 2020-03-23 06:08:002.0[facility] CohhvduAHGPDXLPRB4101-48-78 06:08:000.7[facility] IphoaroFWOGFZRWIN1182-71-74 06:08:009.3[facility] GhcazjtHHTOKSUEXH7917-56-83 06:08:001.0[facility] SchhqyfBFONSKRGIK2735-48-52 06:08:000.8[facility] GLUVTREUQC0827-84-19 06:08:000.2[facility] CkyjtqyMELGWAYXNU5962-23-74 06:08:000.1 [facility] MqlzmneFJPTZCZQVC6835-07-32 06:08:002+ *ABN*(03/23/20 1:08 AM)[facility] OvhwxfqLQZQETKGWL8594-01-62 06:08:001+ *ABN*(03/23/20 1:08 AM)[facility] HJAIPRPJLR3659-42-31 06:08:001+ *ABN*(03/23/20 1:08 AM)[facility]annHEMATOLOGY 2020-03-23 06:08:00Rare *ABN*(03/23/20 1:08 AM)[facility] 2020-03-05 17:27:00 Test Item Value Reference Range Interpretation Comments K (test code = 0629145001) 4.5 mmol/L 3.5-5 Lab Interpretation (test code = Normal 54072-3) [facility] ([facility]ATED)2020-03-05 16:26:00 Test Item Value Reference Range Interpretation Comments POCT GLU (test code = 0024627803) 100 mg/dL 70-110 Lab Interpretation (test code = Normal 79410-9) [facility]CHE[facility] QYDMN0053-57-38 21:27:0085[facility]annCHEM MZZGY5725-67-07 21:27:0058[facility]annCHEM YPNHU5127-64-23 21:27:0012.00[facility] HermannCHEM EKIGD0884-20-82 21:27:81983Qlcaenju Marlo CHEM PMUBX5511-12-28 21:27:004.2[facility] HermannCHEM IQWEO9355-65-91 21:27:0092 [facility]annCHEM TKUHD5161-81-12 21:27:0026[facility] HermannCHEM PANEL 2020-02-03 21:27:008.3[facility] HermannCHEM HFAWL5782-77-81 21:27:005.5[facility] HermannCHEM AUKLN5268-66-40 21:27:002.4[facility] HermannCHEM LTFJD3069-30-02 21:27:0018[facility] HermannCHEM DQJUO6575-82-35 21:27:0020[facility] HermannCHEM DLLQO3576-61-14 21:27:0076[facility] HermannCHEM RMJSY7582-07-75 21:27:000.3 [facility]annCHEM EZQJC2365-59-49 21:27:0015.2[facility] HermannCHEM PANEL 2020-02-03 21:27:00 Test Item Value Reference Range Interpretation Comments B/C Ratio (test code = B/C Ratio) 5 1 6-25 [facility] FKYHB7618-60-50 21:27:003.1[facility] PANEL 2020-02-03 21:27:00 Test Item Value Reference Range Interpretation Comments A/G Ratio (test code = A/G Ratio) 0.8 1 0.7-1.6 [facility] ZADDZ2501-87-77 21:27:004[facility]annHEMATOLOGY 2020-02-03 21:27:008.7[facility] FuibfunYBJOIIRWYX1388-24-53 21:27:002.94[facility] MwxjxvaYWOQBZNNET5217-86-84 21:27:008.4[facility] WtesfjoHRQDTPLKDD0909-21-92 21:27:0025.0[facility] UipjyfmSUVECOFHLG4453-64-51 21:27:0084.9[facility] LXIBSGQJBG3863-52-88 21:27:00 Test Item Value Reference Range Interpretation Comments MCH (test code = MCH) 28.7 pg 27.0-31.0 [facility] VybwwpnQTNLUGCYYY1473-65-94 21:27:0033.8[facility]annHEMATOLOGY 2020-02-03 21:27:0014.4[facility] KwsroxkFWCCPDPBDC9872-79-32 21:27:76329Rekpfugo TgnlygwVTGGPTALOJ4346-54-75 21:27:007.6[facility] AstshxfMOEDDGEDMJ4092-17-44 21:27:007.7[facility] FpbapoaGXDPFURMSL8283-09-67 21:27:000.4[facility] XYWAEVPCZN4312-41-58 21:27:000.3[facility] LuvzlesHFYZJCJVYD0042-28-11 21:27:000.2 [facility] IpryepdUHEYYOWCYS5663-90-09 21:27:0086.0[facility]HE[facility]OLOGY 2020-02-03 21:27:003.0[facility] ZvgmufkXAROFJBAUA0787-72-80 21:27:003.0[facility] KczxhukZAJCUCKTJF6147-83-47 21:27:004.0[facility] KmqtdpzRSQBQCKXWF9744-94-66 21:27:002.0[facility] CuhrnimAPFJFFAVZM0334-26-67 21:27:002.0[facility] NKFQWXUEGG5845-64-00 21:27:00Normal (02/03/20 4:27 PM)[facility] 2020-02-03 21:27:00Normal (02/03/20 4:27 PM)[facility] FvgbuxyKQJCVYDZWM3485-56-03 21:27:001+ *ABN*(02/03/20 4:27 PM)[facility] WRDNA3159-34-47 21:27:0085 [facility] BJHIJ7276-24-12 21:27:0058[facility]annCHEM PANEL 2020-02-03 21:27:0012.00[facility]annCHE[facility] ERVTW7856-00-48 21:27:23902Psoxeibw HermannCHEM JCZWF3627-96-43 21:27:004.2[facility]CHE[facility] XJAAN3520-74-71 21:27:0092[facility]CHE[facility] QWQFX5635-12-90 21:27:0026[facility]CHE[facility] OTGRX2195-12-34 21:27:008.3[facility]CHE[facility] FCOHI0048-62-29 21:27:005.5 [facility] TQPVN4499-49-99 21:27:002.4[facility]annCHE[facility] PANEL 2020-02-03 21:27:0018[facility]annCHE[facility] ORNHW3326-58-85 21:27:0020[facility]CHE[facility] JLAJU9835-52-73 21:27:0076[facility]CHE[facility] EXRWA3397-31-18 21:27:000.3[facility]CHE[facility] FNSJE4679-60-42 21:27:0015.2[facility]CHE[facility] QEXHB1509-11-69 21:27:00 Test Item Value Reference Range Interpretation Comments B/C Ratio (test code = B/C Ratio) 5 1 6-25 [facility] NKCCJ6933-92-53 21:27:003.1[facility]CHE[facility] PANEL 2020-02-03 21:27:00 Test Item Value Reference Range Interpretation Comments A/G Ratio (test code = A/G Ratio) 0.8 1 0.7-1.6 [facility] NGAVE6458-41-23 21:27:004[facility]annHEMATOLOGY 2020-02-03 21:27:008.7[facility] PvcjwuqGYBJURASNM3120-65-46 21:27:002.94[facility] GhxptyhYYSPHPEBEL0977-26-32 21:27:008.4[facility] IwcmgxrLWTZETSZUC5383-79-82 21:27:0025.0[facility] XrvkcxqHKAQJQVUDA9859-72-50 21:27:0084.9[facility] LGQHRQWIEK5816-12-65 21:27:00 Test Item Value Reference Range Interpretation Comments MCH (test code = MCH) 28.7 pg 27.0-31.0 [facility] NdepjeeDPDCKALQFO7736-18-11 21:27:0033.8[facility]annHEMATOLOGY 2020-02-03 21:27:0014.4[facility] NpkxcdeJVJSUVNIEH1244-45-90 21:27:65861Ezhxetxd IyhxlmeBLYTIBSVDE1074-79-29 21:27:007.6[facility] VmusgblPVBDGPOGVW4039-28-66 21:27:007.7[facility] TqbzwqpKEHWEBZBPS6022-65-27 21:27:000.4[facility] DSKSHMOSTB8143-64-46 21:27:000.3[facility] FcuscxuRFHEIDAZDA9153-64-51 21:27:000.2 [facility] LsaqodfBXQMMGUAUG9321-15-63 21:27:0086.0[facility]annHEMATOLOGY 2020-02-03 21:27:003.0[facility] ComnlhdPBNALFKQKM1304-61-50 21:27:003.0[facility] CshdcftEJIKTMENSG4893-61-66 21:27:004.0[facility] ZzahgisMPTFBKIFSF6357-28-21 21:27:002.0[facility] OnvsylyAIZICDHGJB7388-30-34 21:27:002.0[facility] ZCXFDRGOXG6181-93-93 21:27:00Normal (02/03/20 4:27 PM)[facility]MAT[facility] 2020-02-03 21:27:00Normal (02/03/20 4:27 PM)[facility] JgsjbhvYYPCXUQXXC8798-49-51 21:27:001+ *ABN*(02/03/20 4:27 PM)[facility]annCHE[facility] CFIGC5302-99-12 21:27:0085 [facility] KFOBW9375-30-38 21:27:0058[facility]annCHE[facility] PANEL 2020-02-03 21:27:0012.00[facility]ann[facility] WEMXC4887-64-32 21:27:00910Nzhhyyyw [facility]annCHEM LUPQS8762-15-30 21:27:004.2[facility]annCHE[facility] XAHZL4612-01-38 21:27:0092[facility] SQBME2091-08-60 21:27:0026[facility]annCHE[facility] XYPWO4808-07-95 21:27:008.3[facility]annCHE[facility] ITRNE4643-10-22 21:27:005.5 [facility] QKVYT0970-92-27 21:27:002.4[facility]annCHEM PANEL 2020-02-03 21:27:0018[facility]annCHE[facility] SVYST3924-71-38 21:27:0020[facility]ann[facility] IBTHH3163-76-90 21:27:0076[facility]annCHE[facility] DZIGO6677-50-34 21:27:000.3[facility]annCHE[facility] JPIRO9131-80-35 21:27:0015.2[facility]annCHE[facility] JHQMC3637-81-02 21:27:00 Test Item Value Reference Range Interpretation Comments B/C Ratio (test code = B/C Ratio) 5 1 6-25 [facility] SGQMS5450-48-23 21:27:003.1[facility]annCHEM PANEL 2020-02-03 21:27:00 Test Item Value Reference Range Interpretation Comments A/G Ratio (test code = A/G Ratio) 0.8 1 0.7-1.6 [facility]annCHE[facility] NYILL0850-20-29 21:27:004[facility]annHEMATOLOGY 2020-02-03 21:27:008.7[facility] DbeyczgYUVXTSBATT1573-48-81 21:27:002.94[facility] NkqcqfjWCRCVPUWEC9671-47-15 21:27:008.4[facility] BqefpxoURBUTZEHPM8538-49-24 21:27:0025.0[facility] UmsdrsoTCIEQUTLKT6079-74-72 21:27:0084.9[facility] VPBMWGGTEH4624-09-82 21:27:00 Test Item Value Reference Range Interpretation Comments MCH (test code = MCH) 28.7 pg 27.0-31.0 [facility] RdqrzaeYEQKTXNOTX5961-44-25 21:27:0033.8[facility]annHEMATOLOGY 2020-02-03 21:27:0014.4[facility] YeokqyhAANXTSHWIR0564-66-10 21:27:47792Cwaoqrrb BbspmtqDKQEZSTVQC2680-59-10 21:27:007.6[facility] LjfvzyhLYBXTRRXAB3209-25-71 21:27:007.7[facility] FqjqaazYNGMFGLNIS2528-25-76 21:27:000.4[facility] XNAIWFFBTE9183-69-48 21:27:000.3[facility] KepxgzoRKMOWLZHSE7988-55-76 21:27:000.2 [facility] RvkwpkgAPVHAQKLWV0322-88-18 21:27:0086.0[facility]annHEMATOLOGY 2020-02-03 21:27:003.0[facility] RrriuzwWENZQWMLHK7063-55-29 21:27:003.0[facility] FieedlwAMVADNIDCF2010-21-35 21:27:004.0[facility] LtrlxilHGQLQOKGRN1453-50-93 21:27:002.0[facility] XkuutapYXZQUPQTUF2912-22-13 21:27:002.0[facility] NDMYQDOSNQ5796-61-94 21:27:00Normal (02/03/20 4:27 PM)[facility]annHEMATOLOGY 2020-02-03 21:27:00Normal (02/03/20 4:27 PM)[facility] CqqcwczZFPLPFQQOP4086-89-66 21:27:001+ *ABN*(02/03/20 4:27 PM)[facility] DjhuytuMQJQJSCUMJ7791-45-43 21:14:00 Not Detected (02/03/20 4:14 PM)[facility] SoyqrzsXXVCNEQBHY8565-24-34 21:14:00Not Detected (02/03/20 4:14 PM)[facility] MxhujpjMKJNJMKFYN6928-57-80 21:14:00Not Detected (02/03/20 4:14 PM)[facility]ann[facility] NVNWOT1019-21-45 18:30:00 Colorless (11/04/19 12:30 PM)[facility] JGBKNE3075-19-91 18:30:00Clear (11/04/19 12:30 PM)[facility] ARUNSA6903-20-55 18:30:0011[facility] HBAKFU5937-53-39 18:30:0011[facility] OGQWZH2403-52-57 18:30:0011[facility] KWSSZL6646-12-86 18:30:0056[facility] LKXZDK4696-27-42 18:30:0033[facility] UJDIEF4311-74-56 18:30:00[place] (11/04/19 12:30 PM)[facility] CXAZRY9164-94-21 18:30:00Colorless (11/04/19 12:30 PM)[facility] RTWLEX4512-17-37 18:30:00Clear (11/04/19 12:30 PM)[facility] ZOTRUN3251-53-86 18:30:0011[facility] EUUJBW3882-98-97 18:30:0011[facility] SCCTRN4980-83-01 18:30:0011 [facility] AETJSV9143-55-00 18:30:0056[facility] FLUIDS 2019-11-04 18:30:0033[facility] KQZQJY9716-98-08 18:30:00[place] (11/04/19 12:30 PM)[facility] OMIVZL3166-56-95 18:30:00Colorless (11/04/19 12:30 PM)[facility] DOGTQY4268-70-15 18:30:00Clear (11/04/19 12:30 PM)[facility] GHCURW1493-65-39 18:30:0011[facility] NPYQOU4223-66-81 18:30:0011[facility] UGYVUZ9750-94-50 18:30:0011 [facility] WZRNIH3147-50-55 18:30:0056[facility] FLUIDS 2019-11-04 18:30:0033[facility] WVSUOY8002-29-16 18:30:00[place] (11/04/19 12:30 PM)[facility]annCHEM NHDVH4638-29-95 18:00:64272Cnvncwaz HermannCHEM RPWMU8505-16-47 18:00:0040[facility]annCHE[facility] GLOET9949-36-90 18:00:0010.60[facility]annCHE[facility] PNBKR6724-38-83 18:00:93434Hdwhoumn [place] CHEM TFLJK8390-30-53 18:00:003.8[facility]annCHE[facility] AEEEN1686-18-63 18:00:26780 [facility] LXVDT9985-49-72 18:00:0032[facility]annCHEM PANEL 2019-11-04 18:00:009.3[facility]annCHE[facility] QRHNB7415-63-80 18:00:0011.8[facility]annCHE[facility] SBPHI0804-66-43 18:00:005[facility]annCHE[facility] OOPGB9033-99-49 18:00:13880Vwfxtpoi HermannCHEM QMETJ6186-22-60 18:00:0040[facility]annCHE[facility] OQRFB3156-32-04 18:00:0010.60[facility]annCHEM SETHU8331-43-64 18:00:54365 [facility] ZYFSR9092-72-46 18:00:003.8[facility]annCHEM PANEL 2019-11-04 18:00:47041Kfinvnte HermannCHEM SQTNC6236-23-85 18:00:0032[facility]annCHE[facility] IOEWX8810-85-21 18:00:009.3[facility]annCHEM VBHHC1387-30-87 18:00:0011.8[facility]annCHEM LUZAM0120-02-45 18:00:005[facility]annCHE[facility] QHFNR0245-75-67 18:00:23314Ayukmgpq HermannCHEM TCJVO1837-80-06 18:00:0040 [facility]CHE[facility] HKZOG6081-28-71 18:00:0010.60[facility]annCHEM PANEL 2019-11-04 18:00:89313Fqsjjwib HermannCHEM ZUVKU4683-71-12 18:00:003.8[facility]annCHEM JFVQA2748-58-38 18:00:05399Ilrhsidy HermannCHEM XXJMA5799-01-29 18:00:0032[facility]annCHE[facility] MSNQT2912-39-14 18:00:009.3[facility]annCHEM QWMTF7482-71-20 18:00:0011.8[facility]annCHEM INLJW8974-39-17 18:00:005 [facility] XepvrldVITGUJTFBB1582-46-68 18:08:0010.2[facility] HermannTOXICOLOGY 2019-11-03 18:08:0010.2[facility] WytissaFRBNOZLSFZ6923-27-64 18:08:0010.2[facility]annCHEM YHEOJ1518-29-31 13:45:59071Pvnrclyu HermannCHEM YPLUN0145-67-51 13:45:0035[facility]annCHEM WIOYL9533-13-23 13:45:009.71[facility]annCHEM KXDCK7604-71-68 13:45:90641Hyyjrbmg HermannCHEM PBERJ8765-56-25 13:45:003.4 [facility]annCHE[facility] JKEQX5992-84-28 13:45:76081Nsugcnwc HermannCHEM PANEL 2019-11-03 13:45:0029[facility]annCHEM EQZYB2562-12-09 13:45:009.0[facility]annCHEM OQNKL0342-74-19 13:45:0011.4[facility]annCHEM AOTHJ8710-81-98 13:45:005[facility] KagsjoyILGEAPSDXN5760-82-60 13:45:004.3[facility] EGQNEZIVES3691-89-16 13:45:003.00[facility] QnyskyoKRIEZMCZEC9323-04-83 13:45:00 8.4[facility] DxsdmykEFYLUDZAAF2057-85-24 13:45:0025.3[facility] HermannHEMATOLOGY 2019-11-03 13:45:0084.3[facility] BoazuenBHUGFYJPUH8200-23-59 13:45:00 Test Item Value Reference Range Interpretation Comments MCH (test code = MCH) 28.2 pg 27.0-31.0 [facility] BxxifyeWTDORFJCKT4000-89-30 13:45:0033.4[facility]annHEMATOLOGY 2019-11-03 13:45:0014.5[facility] BmutwhdZONXXNDKVO1779-07-75 13:45:79537Dhkvknae BliqxxxDYSBZDGVEP7873-36-76 13:45:006.5[facility] TcbtmlsWAOGZAZDPR0025-44-71 13:45:0066.4[facility] JpfyfrgUYIWMIHABC9039-36-92 13:45:0019.6[facility] EFJVNAFKUB3323-20-01 13:45:009.3[facility] BvzakyfPMPAZQHYEI7240-52-61 13:45:003.7 [facility] TjbklzqSMEITXLMLW6559-24-05 13:45:001.0[facility]annHEMATOLOGY 2019-11-03 13:45:002.8[facility] FncsyhzNXPTVQPLHV7060-40-41 13:45:000.8[facility] RlzxslzXFWLTDHQWS7391-74-06 13:45:000.4[facility] YqahbyaZWNWTEEVZX5026-98-55 13:45:000.2[facility]annCHEM BKPFZ1922-48-61 13:45:17700Bhpuvieq HermannCHEM RRSJB1487-04-47 13:45:0035[facility]annCHEM RYLDP7906-04-26 13:45:009.71 [facility]annCHE[facility] QLPVK5229-33-55 13:45:20674Hsuoltww HermannCHEM PANEL 2019-11-03 13:45:003.4[facility]annCHEM WNKMD4613-28-69 13:45:33563Exhtrwoe HermannCHEM NVOGU8113-06-68 13:45:0029[facility]annCHEM CXLUO4788-23-89 13:45:009.0[facility]annCHEM VFQPJ9713-35-74 13:45:0011.4[facility] HermannCHEM RCETK5852-60-42 13:45:005[facility] NpkqwiyDBWCIXVXBA6633-19-63 13:45:004.3 [facility] UzhoyolPDCACCTLGL2205-99-14 13:45:003.00[facility]annHEMATOLOGY 2019-11-03 13:45:008.4[facility] HheihlnRTBOIIQUTF0563-45-49 13:45:0025.3[facility] WxwmadkXKETAIZIYT7087-49-13 13:45:0084.3[facility] AwaeriqPBTEWGVAAM6400-50-06 13:45:00 Test Item Value Reference Range Interpretation Comments MCH (test code = MCH) 28.2 pg 27.0-31.0 [facility] FwjuhspZLLXIRXKTB2107-33-52 13:45:0033.4[facility]annHEMATOLOGY 2019-11-03 13:45:0014.5[facility] SvolulhRIMOFXYPFD4264-37-91 13:45:34211Eyqoerso CzzredkXSFJJVRRTK6280-15-68 13:45:006.5[facility] SlyzpxhBTNETCPPIN8179-93-72 13:45:0066.4[facility] AtvlbteGJRNLZJRMG9493-80-04 13:45:0019.6[facility] OVSFMLHGJG7719-51-66 13:45:009.3[facility] OlyyaoxCWOUDWAFMP2755-49-25 13:45:003.7 [facility] XzdrzgfLQCQZOOEXR2123-46-68 13:45:001.0[facility]annHEMATOLOGY 2019-11-03 13:45:002.8[facility] NubvochSIYONUDPQD8997-77-38 13:45:000.8[facility] PgwpfevXKMTYVLGHS1695-81-18 13:45:000.4[facility] CtqouzoQUBGMSVJPN5077-59-64 13:45:000.2[facility]annCHEM QCBHG2946-76-55 13:45:82306Lxxpojob HermannCHEM SNAHF5637-84-83 13:45:0035[facility]annCHEM LXHVX4051-23-65 13:45:009.71 [facility]annCHEM ARHYB0674-80-40 13:45:36283Koprncyo HermannCHEM PANEL 2019-11-03 13:45:003.4[facility]annCHEM RKFPB4609-66-39 13:45:44546Qjdrkczk HermannCHEM JJTOJ6721-32-75 13:45:0029[facility]annCHEM CJAMW0374-54-92 13:45:009.0[facility]annCHEM TRZNS4966-27-86 13:45:0011.4[facility] HermannCHEM CCOVI6274-83-39 13:45:005[facility] AwewuaoBUGFEZOOVP8743-28-52 13:45:004.3 [facility] BijoydkBCZTHSINUF4167-92-48 13:45:003.00[facility]annHEMATOLOGY 2019-11-03 13:45:008.4[facility] RrxhvmvJBWPCPVEFQ7526-37-52 13:45:0025.3[facility] JsffvnhWWSNORKOQL2604-49-23 13:45:0084.3[facility] SxfkdjgPRCVEXFXYT0706-49-77 13:45:00 Test Item Value Reference Range Interpretation Comments MCH (test code = MCH) 28.2 pg 27.0-31.0 [facility] VzzbpbhOFVPIIYLIL8822-98-67 13:45:0033.4[facility]annHEMATOLOGY 2019-11-03 13:45:0014.5[facility] QqkqtajRZACMZWGFU4748-61-08 13:45:97526Jzvqjtrp JdaudubWLRSLWBWUU3596-47-03 13:45:006.5[facility] NzhwzrmEAZSACJJFM8952-94-55 13:45:0066.4[facility] TuwixjzOSYAJAEXCA5160-68-45 13:45:0019.6[facility] OTXQHZRQQJ5910-00-45 13:45:009.3[facility] WbmojmoBGCOAVVQMD8981-40-45 13:45:003.7 [facility] YspxdzuIUQFKALNIU0548-40-29 13:45:001.0[facility] HermannHEMATOLOGY 2019-11-03 13:45:002.8[facility] WowfbtmDXOIMAGIRN2451-52-68 13:45:000.8[facility] DmqjgdkVRIXRQRRAJ6766-35-53 13:45:000.4[facility] VskftbeHJHFUHRVEI4315-87-84 13:45:000.2[facility] HfkhcjfZXEHVQFYXBMB2471-93-53 13:25:24369Fmpcndqx [facility] UOAGPVIDMQWM9672-17-13 13:25:003.7[facility] XbjdhxbZSQMAQJBCCTS7175-87-22 13:25:0099[facility] ZwgkxklUOJGNQPGCZUB1855-28-02 13:25:37368Tyepfdyy [facility] BMVYWSCXRHPV4602-94-58 13:25:0042[facility] NiargoaDQVRECDXSUCB9934-60-23 13:25:00 9.35[facility] LsrdmczWXEXKMEFNWRT3951-00-22 13:25:0032[facility] TVQTDZVWHKWK9357-61-43 13:25:008.8[facility] CydepnsFGXGLCLLGPVR1931-81-60 13:25:008.7[facility] BtyolodLRQPDDKQJWGG2687-83-25 13:25:006[facility] ZLZFROLADNRV9048-67-92 13:25:83369Qvmcdasr BcernwrQJSXONZJOOVF6586-61-27 13:25:003.7[facility] MinbjykANVAODHPCJDK1474-48-40 13:25:0099[facility] GASQAQXWOLBG6158-42-40 13:25:49312Ltgovleq AmnfxjeDDPTIMDWJSJK8543-06-36 13:25:0042[facility] ObtgznnAJEKKXXNEAEK6469-54-31 13:25:009.35[facility] BETJSXKXOKPT7615-90-97 13:25:0032[facility] AuydcciHEIAMBOKGDLZ5129-13-30 13:25:00 8.8[facility] TnkbszsQCKYIEHXJERO2563-84-54 13:25:008.7[facility] KMGUYUIHXTJW1717-59-64 13:25:006[facility] ZhquswoTIWPORSBHUPO0401-18-70 13:25:00 136[facility] RegtuhhYUFWYEMGHJHC2351-33-13 13:25:003.7[facility] NMMAKGYCOZYI4415-64-15 13:25:0099[facility] VhlnkfoFLIRYXLBQPAQ0196-54-10 13:25:00 137[facility] XfhbvoiSKNYEBAHHURA9767-76-86 13:25:0042[facility] HermannELECTROLYTES 2019-11-02 13:25:009.35[facility] XalejqbJUQJCGRPKOYB7421-57-41 13:25:0032[facility] NnhbynpMWIFXUZCSKIO7231-50-18 13:25:008.8[facility] AbskusoOFUMTZXNUZCH9221-32-12 13:25:008.7[facility] SdlgkbkUYQWDGFOQNDK6587-98-06 13:25:006[facility] RRBLZFMQHP1803-78-07 17:58:0010.6[facility] OogmgvjRUHKWOXHPU4315-51-54 17:58:00 10.6[facility] LdriqxeZLBPCPCJUG3223-52-69 17:58:0010.6[facility]annBODY FLUIDS 2019-11-01 15:00:00Colorless (11/01/19 9:00 AM)[facility] FLUIDS 2019-11-01 15:00:00Slight Cloudy (11/01/19 9:00 AM)[facility] FLUIDS 2019-11-01 15:00:38037Dqkkjssy HermannBODY IIAESN7510-88-71 15:00:0054[facility]annB[facility] IRBUDS4092-11-83 15:00:0020[facility] AWQYFQ4701-91-71 15:00:0041[facility] UMWRLQ3335-62-08 15:00:0035[facility] DNIVHZ8054-56-67 15:00:004[facility] ZOSEQP8583-41-75 15:00:00[place] (11/01/19 9:00 AM)[facility] MGJLAS2675-97-68 15:00:00Colorless (11/01/19 9:00 AM)[facility] MPOZGL6775-45-04 15:00:00Slight Cloudy (11/01/19 9:00 AM)[facility] TZWXJI1794-45-63 15:00:18546Nakmyfmk [facility]annB[facility] DUJFTZ2886-90-11 15:00:0054[facility] YOFUIW2240-61-69 15:00:0020[facility] QDOJPH1900-64-10 15:00:0041[facility] VWBSGY9125-04-37 15:00:0035[facility] CJTGQS8805-18-85 15:00:004 [facility] TWZFUR4028-87-01 15:00:00[place] (11/01/19 9:00 AM)[facility] ZFSEPK0226-95-52 15:00:00Colorless (11/01/19 9:00 AM)[facility] BODY ECXDDQ3239-77-02 15:00:00Slight Cloudy (11/01/19 9:00 AM)[facility] BODY FQZAVO6307-78-26 15:00:14928Civvnskw [facility]annBODY NXVJZA0029-90-30 15:00:00 54[facility] HNMIHG1716-30-42 15:00:0020[facility] FLUIDS 2019-11-01 15:00:0041[facility] NVVENG1147-06-63 15:00:0035[facility] ZETZEE0547-81-19 15:00:004[facility] PCZRZJ6248-23-53 15:00:00[place] (11/01/19 9:00 AM)[facility] HNVFCZ4551-03-80 18:35:00 Colorless (10/31/19 12:35 PM)[facility] KATJMX9560-41-99 18:35:00Slight Cloudy (10/31/19 12:35 PM)[facility] DKBJHF8142-86-48 18:35:44834 [facility] PKZDII2537-32-36 18:35:000[facility]annB[facility] FLUIDS 2019-10-31 18:35:0035[facility] JKNFZX3189-15-01 18:35:0021[facility]annB[facility] GECMBE5574-86-66 18:35:0043[facility] NOYMIS8309-17-17 18:35:001[facility] CGQVSX6168-64-03 18:35:00[place] (10/31/19 12:35 PM)[facility] HEAUFA1096-00-52 18:35:00Colorless (10/31/19 12:35 PM) [facility] PMRZBA4029-15-24 18:35:00Slight Cloudy (10/31/19 12:35 PM) [facility] ZZPQXN3780-13-75 18:35:44429Qgaxydzf HermannBODY FLUIDS 2019-10-31 18:35:000[facility] PAUVXT3662-86-23 18:35:0035[facility] MYVVZL8156-81-41 18:35:0021[facility] JHHKTV8155-58-71 18:35:0043[facility] KBCPMQ7857-95-62 18:35:001[facility] TQLNMR1933-81-22 18:35:00[place] (10/31/19 12:35 PM)[facility] FLUIDS 2019-10-31 18:35:00Colorless (10/31/19 12:35 PM)[facility] FLUIDS 2019-10-31 18:35:00Slight Cloudy (10/31/19 12:35 PM)[facility] FLUIDS 2019-10-31 18:35:77768Vodnpzdj [facility]annBODY CAVEBR0256-98-28 18:35:000[facility] RSEFYV1755-84-65 18:35:0035[facility] PMVOBV4300-54-10 18:35:0021[facility]annB[facility] PMAWUH5346-08-67 18:35:0043[facility] YKTQYJ7419-26-24 18:35:001[facility] ULVPEK4674-08-03 18:35:00[place] (10/31/19 12:35 PM)[facility]annCHEM COQJW4446-89-52 10:35:004.3[facility] HermannCHEM EIFJU3329-11-61 10:35:002.0[facility] QyvkdtnXWUUKBVKBP5622-61-24 10:35:006.3[facility] MrhyzbnDWIAVDXVQY5959-11-84 10:35:002.76[facility] QNCXGKQNNR0223-36-56 10:35:008.1[facility] EnkytovNZWJUZXKPY5411-94-30 10:35:00 23.5[facility] GgfbxxqPBCGGBRQOR8966-52-77 10:35:0085.2[facility] HermannHEMATOLOGY 2019-10-31 10:35:00 Test Item Value Reference Range Interpretation Comments MCH (test code = MCH) 29.2 pg 27.0-31.0 [facility] YecblcdWRIUQQQCAM8564-60-46 10:35:0034.3[facility] HermannHEMATOLOGY 2019-10-31 10:35:0014.5[facility] YfpaaxgTEMNORSCEJ2730-70-44 10:35:54451Hcntllcs MtmvpcbQLFZMETQNW8348-31-41 10:35:007.0[facility] DzhmyeuRWCZPJZGNY4220-60-95 10:35:0077.7[facility] NdjszlhTXSTHHLXIK7598-98-02 10:35:0010.2[facility] YAVUYIEDUC7387-74-69 10:35:0010.0[facility] XcfjjmgTYZCCIHGJN8879-49-35 10:35:00 1.7[facility] TuhjvulAIRVTJQUAY5822-29-74 10:35:000.4[facility] HermannHEMATOLOGY 2019-10-31 10:35:004.9[facility] CzdzkhwXOHBMWVJQF3909-72-41 10:35:000.6[facility] SgaqqzgPMJAJXCCHM2613-92-19 10:35:000.6[facility] KpsswokNZVMHSBWDZ5976-46-33 10:35:000.1[facility] HermannCHEM RMMOK4159-23-01 10:35:004.3[facility] HermannCHEM TYFXI4407-83-10 10:35:002.0[facility] OgajqzbBOXHKPSFGT8691-67-42 10:35:006.3 [facility] BblattcBFSPPWRMWY9054-78-48 10:35:002.76[facility] HermannHEMATOLOGY 2019-10-31 10:35:008.1[facility] FyjctgwSNVFZBOKVO1507-05-99 10:35:0023.5[facility] OkgryxwAXLQTAFSDF9957-24-46 10:35:0085.2[facility] OqlhzefDLATBWZXCQ3949-50-73 10:35:00 Test Item Value Reference Range Interpretation Comments MCH (test code = MCH) 29.2 pg 27.0-31.0 [facility] KhxgvzsXARYAVMDNX1314-25-87 10:35:0034.3[facility] HermannHEMATOLOGY 2019-10-31 10:35:0014.5[facility] XykmqngLMIWVEUELF4421-96-45 10:35:16265Aqkvcmwd LicnowxEADKCPGPYY8657-93-28 10:35:007.0[facility] EpzajyeSBPDONWMCJ4958-08-73 10:35:0077.7[facility] NtiduoiMIUMBUUIRE8952-60-59 10:35:0010.2[facility] MIODCCFQFO0811-28-35 10:35:0010.0[facility] ZwfhrtbPXBQHCQAJZ8281-03-40 10:35:00 1.7[facility]annCHEM BVRIR3139-46-53 10:35:004.3[facility]annCHEM PANEL 2019-10-31 10:35:002.0[facility] NaevyohMCFUQIDZGA2723-92-38 10:35:006.3[facility] RhxycnjNSTGWZWESF1437-66-58 10:35:002.76[facility] EoclseuHZUZLMHKIN9515-55-89 10:35:008.1[facility] VprqckpNEBNJKPFKH1258-62-19 10:35:0023.5[facility] YMMLJLQKHS4354-07-71 10:35:0085.2[facility] VoymtbhILOMRUIIAM8718-46-45 10:35:00 Test Item Value Reference Range Interpretation Comments MCH (test code = MCH) 29.2 pg 27.0-31.0 [facility] BgrfbqqNIKRXDCEVC7235-05-60 10:35:0034.3[facility]annHEMATOLOGY 2019-10-31 10:35:0014.5[facility] MymxqvlHWFAILXBOK0595-25-24 10:35:50365Vriqrswz OoryqjoDZSJLKGPMB8611-53-55 10:35:000.4[facility] AfgysdfPUFEEKCQPJ3596-06-28 10:35:007.0[facility] VkvgisjTULDCJSFFY0591-62-26 10:35:0077.7[facility] LLEQKINMRJ7668-33-28 10:35:0010.2[facility] PjkqjwtSSQMWKUGJR7188-12-16 10:35:00 10.0[facility] OrhpppmELSKPFOKSX9158-63-68 10:35:001.7[facility]annHEMATOLOGY 2019-10-31 10:35:000.4[facility] QffvpmwEALFZTSZED4635-18-96 10:35:004.9[facility] WmbbtlqGDTPTKRRAL0226-34-22 10:35:000.6[facility] WjepqidCZNEHFALES5642-06-86 10:35:000.6[facility] KxozlquNWUAZASERJ6504-24-26 10:35:000.1[facility] VGGTSSPIBD6790-42-47 10:35:004.9[facility] CefacpiSKJSNIYAFC8618-29-03 10:35:000.6 [facility] AggkrfgMCVXILJOFD2917-74-17 10:35:000.6[facility]annHEMATOLOGY 2019-10-31 10:35:000.1[facility] HermannMOLECULAR PXQVEZNWAD9318-79-16 19:34:00 Nasophrngl Swb *NA*(10/30/19 1:34 PM)[facility]annMOLECULAR DIAGNOSTIC 2019-10-30 19:34:00Negative *NA*(10/30/19 1:34 PM)[facility]annMOLECULAR WZEUNZWHBF1223-61-24 19:34:00Negative *NA*(10/30/19 1:34 PM)[facility] MOLECULAR FNYUMNMXRB9457-29-33 19:34:00Positive *ABN*(10/30/19 1:34 PM)[facility]annMOLECULAR JHECBRLRLL5074-48-95 19:34:00Nasophrngl Swb *NA*(10/30/19 1:34 PM)[facility]annMOLECULAR NRAKPASKPU1109-57-38 19:34:00Negative *NA*(10/30/19 1:34 PM)[facility]annMOLECULAR XITNAHWPBE4861-57-86 19:34:00Negative *NA*(10/30/19 1:34 PM)[facility]annMOLECULAR BSDKXLHLOB4103-64-74 19:34:00 Positive *ABN*(10/30/19 1:34 PM)[facility]annMOLECULAR WQWZVVCGEH4587-18-15 19:34:00Nasophrngl Swb *NA*(10/30/19 1:34 PM)[facility]annMOLECULAR DIAGNOSTIC 2019-10-30 19:34:00Negative *NA*(10/30/19 1:34 PM)[facility]annMOLECULAR SBTQTCNBWX9861-21-57 19:34:00Negative *NA*(10/30/19 1:34 PM)[facility] MOLECULAR LKSOSKQCJQ8015-17-57 19:34:00Positive *ABN*(10/30/19 1:34 PM)[facility] HermannIMIPENEM:SUSC:PT:ISOLATE:ORDQN:FKV7269-58-92 18:00:00Enterococcus Species [facility]annIMIPENEM:SUSC:PT:ISOLATE:ORDQN:MVH6388-59-60 18:00:00Pseudomonas putidaMemorial HermannIMIPENEM:SUSC:PT:ISOLATE:ORDQN:IJD6618-75-63 18:00:00 Enterococcus SpeciesMemorial HermannIMIPENEM:SUSC:PT:ISOLATE:ORDQN:UUP0109-75-12 18:00:00Pseudomonas putidaMemorial HermannIMIPENEM:SUSC:PT:ISOLATE:ORDQN:MATTIE 2019-10-30 18:00:00Enterococcus SpeciesMem[facility] IMIPENEM:SUSC:PT:ISOLATE:ORDQN:PQR3103-42-99 18:00:00Pseudomonas putidaMemorial HermannCHEM UBYKY8610-98-11 17:21:000.6[facility]annCHEM JFREQ0430-91-59 17:21:000.6[facility]annCHEM GCXLF6282-61-65 17:21:000.6[facility]annCHEM BUDWT8757-55-02 10:56:002.1[facility]annCHEM YJKAE6180-30-50 10:56:004.5 [facility] KvafefwTXTJACJTOQ3082-47-46 10:56:006.7[facility]annHEMATOLOGY 2019-10-30 10:56:002.47[facility] JyliyjnGTXGRYTHPL9964-27-15 10:56:007.2[facility] QzjgbdoZACOERWQRR1416-46-35 10:56:0021.1[facility] FwvkqovXOOGMTUHDX2703-49-87 10:56:0085.2[facility] WgmfsbnENACAKPALH8935-18-04 10:56:00 Test Item Value Reference Range Interpretation Comments MCH (test code = MCH) 28.9 pg 27.0-31.0 [facility] JcakfkeRYANNRIBCF4211-93-72 10:56:0034.0[facility]annHEMATOLOGY 2019-10-30 10:56:0014.6[facility] DpkszvjBBBWTYJTQN3330-03-64 10:56:62151Vegczryw CpceqejBLQRPEPLSP1769-27-13 10:56:007.2[facility] QxyfmweKJDXKGXSJM4420-17-54 10:56:0087.8[facility] LyivimqYEJIUUXGDE5601-06-66 10:56:003.9[facility] IFICSFQPOW8786-72-79 10:56:006.8[facility] MhjjcbtPXQFNBPRPI5212-76-88 10:56:001.1 [facility] NopcfmwESQITBEJFG5770-75-03 10:56:000.4[facility]annHEMATOLOGY 2019-10-30 10:56:005.9[facility] JvakuukJBCYSHRGIA5639-46-59 10:56:000.3[facility] VefmzvaOZSRBIXPLC8570-77-43 10:56:000.5[facility] AbjzvtuFHGQOYBHIB3791-29-62 10:56:000.1[facility]annCHEM QIONP5430-41-76 10:56:002.1[facility] HermannCHEM WNHIN6331-87-73 10:56:004.5[facility] FbykcbdPSHTRSXBZD7250-67-94 10:56:006.7 [facility] NowbnudRSZKSLERSD1974-38-37 10:56:002.47[facility]annHEMATOLOGY 2019-10-30 10:56:007.2[facility] YfqdofeEBTXRRIHIW9927-57-91 10:56:0021.1[facility] KerycytQATWKEMSBB4636-50-33 10:56:0085.2[facility] DyganvrLCLOEPRVRI0831-86-60 10:56:00 Test Item Value Reference Range Interpretation Comments MCH (test code = MCH) 28.9 pg 27.0-31.0 [facility] ObvxmhpMHIFIGBQBF0845-22-30 10:56:0034.0[facility]annHEMATOLOGY 2019-10-30 10:56:0014.6[facility] MzpnkyoTYAWNAUAGX8895-08-35 10:56:91195Hyyzujqq KllulgmFUFDURKVRU0569-14-37 10:56:007.2[facility] BwxhzhfJDGQBEKXSN8895-19-22 10:56:0087.8[facility] QdbrquaDKJQZCZTER4471-73-58 10:56:003.9[facility] OGCXOSXDFD8266-53-40 10:56:006.8[facility] OgbtpyvYLLATATEXO1874-99-39 10:56:001.1 [facility] EdljvfmRHHSECEHNK4919-06-54 10:56:000.4[facility] HermannHEMATOLOGY 2019-10-30 10:56:005.9[facility] YoxdogwHNUKHLSNGU8583-79-44 10:56:000.3[facility] NosgktoMXAAFHTFWQ8861-96-03 10:56:000.5[facility] MdiepsiRWEUIVDUNM7172-72-97 10:56:000.1[facility] HermannCHEM AMMBM7362-82-61 10:56:002.1[facility] HermannCHEM BHKOU5354-35-65 10:56:004.5[facility] ZefhzizNWKRUVDTGD6033-90-31 10:56:006.7 [facility] HpxeeyyQBFOPGTUVN7001-11-35 10:56:002.47[facility]annHEMATOLOGY 2019-10-30 10:56:007.2[facility] MdzinctXSNSZLZSKR6078-18-78 10:56:0021.1[facility] IrsfcwfTBCHQHMOEV9033-87-52 10:56:0085.2[facility] AmzxsecGTNMXUKPSR4918-99-74 10:56:00 Test Item Value Reference Range Interpretation Comments MCH (test code = MCH) 28.9 pg 27.0-31.0 [facility] ZdbbeonDASINTWDAC5523-41-87 10:56:0034.0[facility] HermannHEMATOLOGY 2019-10-30 10:56:0014.6[facility] KsacrmoRZETWFANBU5018-40-67 10:56:76183Icmeeiek OaqgmtsQMOKJPFPUZ7779-07-68 10:56:007.2[facility] SizelktVLHJHEVTCJ0058-09-86 10:56:0087.8[facility] AptjtamYWVYHENISA7685-70-14 10:56:003.9[facility] UJLALCBJLD5884-59-95 10:56:006.8[facility] YeckycpKYRMSGPDAN8820-18-84 10:56:001.1 [facility] ZdbpbqiSZFFGSYLXH7270-08-69 10:56:000.4[facility] HermannHEMATOLOGY 2019-10-30 10:56:005.9[facility] QjjweiaKCXGHOFUXX0737-48-93 10:56:000.3[facility] HbimeldBSSIOSSSRH6616-35-61 10:56:000.5[facility] YmlfygbYJMJYUOASB6398-03-20 10:56:000.1[facility] HermannCHEM ZNZXX3884-44-22 22:52:002.2[facility] HermannCHEM VHTUK5230-03-52 22:52:005.8[facility]annCHEM UNQEG3438-51-75 22:52:002.2 [facility]annCHEM XHSBI5421-75-00 22:52:005.8[facility] HermannCHEM PANEL 2019-10-29 22:52:002.2[facility]annCHEM XZCVO5159-00-22 22:52:005.8[facility] HermannCARDIAC VEYFKAG1576-28-09 10:47:000.02[facility] HermannCARDIAC ENZYMES 2019-10-29 10:47:000.02[facility] AATJBTY5069-48-42 10:47:000.02 [facility] IVYPGDH4220-82-94 07:19:000.02[facility] LIXPAJL1206-33-36 07:19:000.02[facility] EPYVZKJ0420-19-19 07:19:00 0.02[facility] ANSYLQN0351-64-02 03:06:00<0.02[facility] CHEM GJCOX1902-18-53 03:06:005.5[facility]annCHEM TCLUP9160-14-61 03:06:002.3 [facility]CHE[facility] RGJBG5814-33-05 03:06:0022[facility]annCHEM PANEL 2019-10-29 03:06:0050[facility]annCHEM KOREA4977-05-63 03:06:0068[facility]annCHEM OOBBJ3595-84-67 03:06:000.6[facility]annCHEM ZZIRF5029-33-08 03:06:00 Test Item Value Reference Range Interpretation Comments B/C Ratio (test code = B/C Ratio) 5 04-02 [facility] WJOVE7004-11-75 03:06:003.2[facility]annCHEM PANEL 2019-10-29 03:06:00 Test Item Value Reference Range Interpretation Comments A/G Ratio (test code = A/G Ratio) 0.7 1 0.7-1.6 [facility] KjlumgbYDAVXHZBXS8961-40-15 03:06:00Normal (10/28/19 9:06 PM)[facility] PpjxwriFHQPHDJMTC1200-17-04 03:06:000.1[facility] RXTVHBB2639-02-84 03:06:00<0.02[facility]annCHEM NNQVS4058-47-27 03:06:005.5[facility] CHEM LUYCA7861-19-89 03:06:002.3[facility]annCHEM SGGXU7806-62-00 03:06:0022 [facility] QRNMS8595-66-53 03:06:0050[facility]annCHE[facility] PANEL 2019-10-29 03:06:0068[facility]annCHE[facility] UGBJO0995-67-84 03:06:000.6[facility]annCHEM OREKM8126-04-54 03:06:00 Test Item Value Reference Range Interpretation Comments B/C Ratio (test code = B/C Ratio) 5 04-02 [facility] QVDKR8085-21-26 03:06:003.2[facility]annCHEM PANEL 2019-10-29 03:06:00 Test Item Value Reference Range Interpretation Comments A/G Ratio (test code = A/G Ratio) 0.7 1 0.7-1.6 [facility] ZmlrpkeQQMGORNCDC7404-60-62 03:06:00Normal (10/28/19 9:06 PM)[facility] VhkokwgHFLXULYHKJ9970-56-31 03:06:000.1[facility]annCARDIAC PXJMAZQ9390-68-04 03:06:00<0.02[facility]annCHEM OMJZN3392-39-19 03:06:005.5[facility] CHEM MQKMU2005-06-10 03:06:002.3[facility]annCHEM ZHABM8820-30-91 03:06:0022 [facility]CHE[facility] EIRXJ7632-83-93 03:06:0050[facility]annCHEM PANEL 2019-10-29 03:06:0068[facility]annCHE[facility] TXDRB0270-46-63 03:06:000.6[facility]annCHEM MKTPY8842-44-15 03:06:00 Test Item Value Reference Range Interpretation Comments B/C Ratio (test code = B/C Ratio) 5 1 6-25 [facility]annCHE[facility] YRIFE4200-93-23 03:06:003.2[facility]annCHEM PANEL 2019-10-29 03:06:00 Test Item Value Reference Range Interpretation Comments A/G Ratio (test code = A/G Ratio) 0.7 1 0.7-1.6 [facility] InaljblRSCSMQICYS6301-15-88 03:06:00Normal (10/28/19 9:06 PM)[facility] FuliiioNWXBSFKAQJ3234-32-73 03:06:000.1[facility]annCHEM BYUWV7764-51-03 10:56:0093[facility]annCHEM WGFXM1982-84-19 10:56:0026[facility]annCHEM SOKKX4722-74-79 10:56:007.85[facility]annCHEM IVPKD2053-73-42 10:56:58542 [facility]CHE[facility] FHIVQ7621-43-48 10:56:003.7[facility]annCHEM PANEL 2019-08-20 10:56:96720Hctwwcsk HermannCHEM PFCQZ6300-10-75 10:56:0025[facility]annCHEM VVPWB2755-59-46 10:56:009.2[facility]annCHEM JGUYL9879-18-71 10:56:007[facility]annCHEM NOOYC8168-87-85 10:56:0014.7[facility] XIOLDJTOBX9184-17-66 10:56:008.6[facility] YamhgvqALOOGPBPIN0230-46-07 10:56:00 3.37[facility] EsamvfxKZUWGLZMWK7819-32-64 10:56:0010.2[facility] HermannHEMATOLOGY 2019-08-20 10:56:0029.9[facility] ItamzqvKDZSFGEUCC7240-07-49 10:56:0088.7[facility] ChmwyrmJHAVTNDQLQ8793-69-76 10:56:00 Test Item Value Reference Range Interpretation Comments MCH (test code = MCH) 30.1 pg 27.0-31.0 [facility] BkacnwoVKQSDQLSKO6775-39-26 10:56:0033.9[facility] HermannHEMATOLOGY 2019-08-20 10:56:0013.7[facility] DfuaerwRBWAMQAAKB7367-98-42 10:56:82795Pkkxuhnq MostownLYSOFYWKIL3072-50-63 10:56:006.7[facility] AhluomrAEIMZNRHWE4835-28-31 10:56:0079.5[facility] JxzicxvYGWVKTKFTP8052-87-37 10:56:0012.8[facility] HJZHIQBUUQ3016-13-62 10:56:006.3[facility] EbyiamvTSGORHVTKK0682-01-85 10:56:000.6 [facility] RrhkgzuGSTIRHSKRJ0971-25-53 10:56:000.8[facility]annHEMATOLOGY 2019-08-20 10:56:006.8[facility] PashdwpXFFLSMCNXL2871-09-00 10:56:001.1[facility] MyscrujDNJQBVNMBV9503-51-17 10:56:000.5[facility] KryfoeiCNNHCRWXSM6350-08-12 10:56:000.1[facility]annCHEM WIIWG6805-99-76 10:56:0093[facility]annCHEM IUPCI8091-83-30 10:56:0026[facility]annCHEM MXQYC8601-36-81 10:56:007.85 [facility]annCHEM VWHCY7330-41-84 10:56:61015Bskdbrdh HermannCHEM PANEL 2019-08-20 10:56:003.7[facility]annCHEM MZJPB5338-75-13 10:56:55543Hmczdpih HermannCHEM DGVNB8515-11-70 10:56:0025[facility]annCHEM ROHLS8967-08-33 10:56:009.2[facility]annCHEM ZJFPG2602-59-02 10:56:007[facility]annCHEM LMJFM4391-58-09 10:56:0014.7[facility] PafgljcEZQBQMLCKL0783-97-34 10:56:008.6 [facility] JieelcoFAGJREMIDM3516-22-66 10:56:003.37[facility] HermannHEMATOLOGY 2019-08-20 10:56:0010.2[facility] NnjliowMJKJOYCLUI5197-71-03 10:56:0029.9[facility] UvlvkoaUNYWWKLSQB6177-26-08 10:56:0088.7[facility] WyjfcrmGFNUVPUTEE4879-30-87 10:56:00 Test Item Value Reference Range Interpretation Comments MCH (test code = MCH) 30.1 pg 27.0-31.0 [facility] LpbhmpkYICJQOJGHU8477-34-70 10:56:0033.9[facility] HermannHEMATOLOGY 2019-08-20 10:56:0013.7[facility] GjtwaagRHGPWRCQZK4505-22-95 10:56:01492Xvfpqnvv NoyhuhcJSZDYULPES2398-36-24 10:56:006.7[facility] QqmngolUYCGNDOHZE2848-84-63 10:56:0079.5[facility] TevahjzSWIFQOEMHQ0339-25-78 10:56:0012.8[facility] VJNGZAFVVQ2542-01-22 10:56:006.3[facility] MshgpybNCZVSYRIML7450-53-34 10:56:000.6 [facility] FrnzmidDBMBLPOYYA8114-64-96 10:56:000.8[facility] HermannHEMATOLOGY 2019-08-20 10:56:006.8[facility] XdmhflfEOTOMQTIQK8441-84-24 10:56:001.1[facility] OulqloaIABHOFBEVS2382-92-98 10:56:000.5[facility] GvsrhqzEEEXYPSIYB5355-87-71 10:56:000.1[facility] HermannCHEM BYRJT0379-58-11 10:56:0093[facility]annCHEM NORHD8189-53-87 10:56:0026[facility]annCHEM YSBSK2121-31-76 10:56:007.85 [facility]annCHEM BZMXP8203-18-12 10:56:98333Adasoxxl HermannCHEM PANEL 2019-08-20 10:56:003.7[facility] HermannCHEM GTDDG5532-99-02 10:56:68257Fbvrrpvu HermannCHEM AZQUS4336-56-63 10:56:0025[facility] HermannCHEM WDION8686-62-81 10:56:009.2[facility] HermannCHEM TVGHF1976-91-89 10:56:007[facility]annCHEM ENDAP5840-88-01 10:56:0014.7[facility] YgrtddtPCHQBOXFWW1050-07-89 10:56:008.6 [facility] HyuyclxVJRSCKGXFG3571-38-44 10:56:003.37[facility] HermannHEMATOLOGY 2019-08-20 10:56:0010.2[facility] ZtgjufgXSWLPBZUNQ5728-12-04 10:56:0029.9[facility] DrgqupkEWTOPFYDNQ2667-99-02 10:56:0088.7[facility] QflhfttKKRAUMHAQN4280-79-75 10:56:00 Test Item Value Reference Range Interpretation Comments MCH (test code = MCH) 30.1 pg 27.0-31.0 [facility] FidbmdmTTQVDCGQIV4026-78-33 10:56:0033.9[facility] HermannHEMATOLOGY 2019-08-20 10:56:0013.7[facility] OeylwcnTMJQCYDKAQ0058-72-30 10:56:42225Lpkduntz EscyumtNIAEFWHLFP1771-41-92 10:56:006.7[facility] KluratlATRDHPCDTU7759-96-83 10:56:0079.5[facility] InvdlexDBOHNOWCBP2747-03-31 10:56:0012.8[facility] TCKKRAUEWC4991-28-37 10:56:006.3[facility] PljccumGXOSEMQSOE5108-40-14 10:56:000.6 [facility] HrjthdcLMWIQCTTBM3265-91-72 10:56:000.8[facility] HermannHEMATOLOGY 2019-08-20 10:56:006.8[facility] AbmokfvBUPNGMSEED3416-50-42 10:56:001.1[facility] McivsayILISYJTWZL0668-77-35 10:56:000.5[facility] NobknynGKIZQQXQAD2410-09-63 10:56:000.1[facility] HermannCHEM BRREF6002-57-50 10:14:59427Hbpgdiaz HermannCHEM VOJMO8387-61-46 10:14:0018[facility] HermannCHEM DMBVM8814-17-66 10:14:007.09 [facility]annCHEM JVUYM2030-11-03 10:14:68074Khyvdwzm HermannCHEM PANEL 2019-08-19 10:14:003.6[facility] HermannCHEM EDQCE2398-40-92 10:14:91164Hzoglvep HermannCHEM WFCHX6091-57-73 10:14:0028[facility] HermannCHEM UTFIE6457-59-43 10:14:0013.6[facility] HermannCHEM RRWVW6716-91-80 10:14:009.5[facility] HermannCHEM RHBIF1162-59-53 10:14:008[facility] OszeoiqOKFZZCGHOX1313-42-96 10:14:007.7 [facility] UyokablOXUCAUHJAV5765-96-79 10:14:003.61[facility] HermannHEMATOLOGY 2019-08-19 10:14:0010.8[facility] FupahidAVZGOMRVBA5692-90-26 10:14:0031.7[facility] RnxokkvIFFTGIPWQL1335-76-24 10:14:0087.7[facility] OdosdirNDVJSIUFQS8716-74-72 10:14:00 Test Item Value Reference Range Interpretation Comments MCH (test code = MCH) 30.0 pg 27.0-31.0 [facility] ImmdpzzCRZKTMXVYV2738-29-22 10:14:0034.2[facility] HermannHEMATOLOGY 2019-08-19 10:14:0014.0[facility] CavcfsgGGIIQGPRED6011-80-12 10:14:58936Zbnfihds HmwaqxlEZMXVTHVVI7693-90-32 10:14:007.0[facility] NfepmsoKETKMCBPWQ3515-99-58 10:14:0075.0[facility] ZaiwskwBGJYJEFVLU1707-69-69 10:14:0015.4[facility] TOOYTBJWGD5625-38-09 10:14:007.1[facility] UxpcnhqAVTOBDECXX9387-64-68 10:14:001.4 [facility] XhiddxfIWKXEGQMPU4771-98-54 10:14:001.1[facility] HermannHEMATOLOGY 2019-08-19 10:14:005.8[facility] CnkbmmuLEIITCUZHI2963-99-10 10:14:001.2[facility] AqhsrtfZIOQXRBPZW0755-11-52 10:14:000.5[facility] NunogktZRNUHSKVMK9912-62-14 10:14:000.1[facility] AxlhppyQVUISPEMTK9441-92-21 10:14:000.1[facility] HermannCHEM BVRWY1955-92-97 10:14:75539Ucjqzwfj HermannCHEM WCLUP9664-64-05 10:14:0018 [facility]annCHEM ZVPFC7352-61-76 10:14:007.09[facility]annCHEM PANEL 2019-08-19 10:14:26003Ifsaxvjy HermannCHEM NRFSD3179-74-00 10:14:003.6[facility]annCHEM YCOAN4719-90-36 10:14:49669Xjtbussk HermannCHEM PHHES6791-99-66 10:14:0028[facility]annCHEM YCZMF6913-99-54 10:14:0013.6[facility]annCHEM NWNZT0387-89-07 10:14:009.5[facility] HermannCHEM PBUVQ5270-77-45 10:14:008 [facility] CrevnxrSTZHWAZMKF1849-06-59 10:14:007.7[facility] HermannHEMATOLOGY 2019-08-19 10:14:003.61[facility] WcwvytfGCKNIUYLTS2288-14-09 10:14:0010.8[facility] CyevxhuCHFTLEWBHT8522-75-27 10:14:0031.7[facility] ImjtvcrXMHQKHHFCA4118-50-69 10:14:0087.7[facility] InpnlvdARELFKBHIO6261-64-58 10:14:00 Test Item Value Reference Range Interpretation Comments MCH (test code = MCH) 30.0 pg 27.0-31.0 [facility] MqgnislYQDUDNXGVN2253-94-58 10:14:0034.2[facility] HermannHEMATOLOGY 2019-08-19 10:14:0014.0[facility] QxeivtbAMJZPRVVBI9170-18-58 10:14:57833Codrkqfh PmsyzzeXYGJKZLCZX1774-32-07 10:14:007.0[facility] VavurmwINUOYZWUMU9780-21-06 10:14:0075.0[facility] ZbrltktRUALHLHXUH2585-18-06 10:14:0015.4[facility] ZWHSNMTBXR8397-01-82 10:14:007.1[facility] CyijujpFTLOUGQXNI0362-58-89 10:14:001.4 [facility] KwcrqypLFKUZQTARR4850-27-08 10:14:001.1[facility] HermannHEMATOLOGY 2019-08-19 10:14:005.8[facility] VbyhqtoUWXWSHMTVA8504-81-92 10:14:001.2[facility] BumvxogJVRUBEVUTR3681-49-98 10:14:000.5[facility] EwevggoDUZCXJEPUE6473-75-35 10:14:000.1[facility] DqwrhzvPCNBRZQPUV5120-18-16 10:14:000.1[facility] HermannCHEM PORWC0342-78-38 10:14:36482Veagnese HermannCHEM WMZEM2691-00-97 10:14:0018 [facility]annCHEM UDTNA1749-41-14 10:14:007.09[facility]annCHEM PANEL 2019-08-19 10:14:40580Nncbbigg HermannCHEM QCDYO6298-06-97 10:14:003.6[facility]annCHEM RUCBX4312-24-64 10:14:37342Gkltlfxq HermannCHEM RVTAK6925-35-06 10:14:0028[facility]annCHEM EJZZD5500-22-86 10:14:0013.6[facility] HermannCHEM ERUAK2679-34-84 10:14:009.5[facility]annCHEM VIEXP1509-51-17 10:14:008 [facility] FabpgthQTUKXHPZTI3539-09-47 10:14:007.7[facility] HermannHEMATOLOGY 2019-08-19 10:14:003.61[facility] EzdxhdxFPIQZBBQYL7962-15-39 10:14:0010.8[facility] LtdkmwaZZOIQWNYQD4032-26-13 10:14:0031.7[facility] NummsohQCVGYLTGRJ3060-14-79 10:14:0087.7[facility] VudjzibIRFSFIZLEK8594-89-27 10:14:00 Test Item Value Reference Range Interpretation Comments MCH (test code = MCH) 30.0 pg 27.0-31.0 [facility] YejbzveAURDJWCQMW3004-94-24 10:14:0034.2[facility]annHEMATOLOGY 2019-08-19 10:14:0014.0[facility] EhugnpxMLULCWEXKR7725-03-39 10:14:78477Lqdbxfze QjyvcbxEPUZHMGTHH0683-34-37 10:14:007.0[facility] JebfrzcNUEEFYPGWO8451-24-17 10:14:0075.0[facility] IlutrolYOFWYHTMJL9260-67-97 10:14:0015.4[facility] NOVSUUKSAP7051-03-50 10:14:007.1[facility] AvtuljxNUPEZPCTAY7993-46-38 10:14:001.4 [facility] WmgacgfWVYHUOHETJ1883-77-05 10:14:001.1[facility]annHEMATOLOGY 2019-08-19 10:14:005.8[facility] ZxfhmpoXBEFYPAQSU6347-77-54 10:14:001.2[facility] LxabigvVLIWJATYCY0495-13-61 10:14:000.5[facility] KauapdaBJKYEJXTPM1749-29-82 10:14:000.1[facility] SecumtwOWVLSRGAKK8251-18-35 10:14:000.1[facility] HermannCHEM VOFLX6561-87-24 10:24:39941Slfcbned HermannCHEM RQGIR4198-49-44 10:24:0034 [facility]annCHEM ENXGL8983-34-25 10:24:0011.00[facility]annCHEM PANEL 2019-08-18 10:24:19706Iuyqibwi HermannCHEM LAYTQ6085-47-09 10:24:003.6[facility]annCHEM MOYKY0403-09-06 10:24:76392Qiuozrod HermannCHEM YNWOX1730-06-31 10:24:0028[facility]annCHEM RRHPU7556-50-34 10:24:0011.6[facility]annCHEM CHEHR3958-29-30 10:24:009.0[facility]annCHEM EFHZZ7186-10-82 10:24:005 [facility] ZpatigoABLJDRMOXE8200-33-43 10:24:006.9[facility]annHEMATOLOGY 2019-08-18 10:24:003.13[facility] HqdxacxNDOKSXOWON3624-95-44 10:24:009.3[facility] PmcckeaHPBJZDNTEI8767-32-60 10:24:0027.4[facility] UlopurwXRHNFGBKYG0747-50-50 10:24:0087.7[facility] TbqzskyXRLRHGATAO2825-28-18 10:24:00 Test Item Value Reference Range Interpretation Comments MCH (test code = MCH) 29.6 pg 27.0-31.0 [facility] PjkqhtnARXCMYQFJX0838-62-22 10:24:0033.8[facility]annHEMATOLOGY 2019-08-18 10:24:0014.0[facility] WundpfqDRNVYDBUDQ9538-81-54 10:24:83469Swvltrsq UbwpkuiRVCVVABNUR0647-82-33 10:24:006.9[facility] QytcwmyLKQTRVELQB0931-03-65 10:24:0078.2[facility] BofkdufNWNATQKLVO0271-00-03 10:24:0012.2[facility] WDYUYXHPSB8750-85-72 10:24:006.6[facility] OaxlgnpYELVYDMSWD4604-79-47 10:24:002.4 [facility] VuyvixtHGQYZHPUEH1951-86-34 10:24:000.6[facility]annHEMATOLOGY 2019-08-18 10:24:005.4[facility] IjpiyrnSXPCLJVKQD5772-27-97 10:24:000.8[facility] ChoelwvWCGHDHCXMZ2294-73-27 10:24:000.5[facility] MzyjatzJYLVYOWYOZ8647-69-02 10:24:000.2[facility] HermannCHEM QNVZF3650-79-78 10:24:01291Opxbxoyr HermannCHEM AQZBB4980-63-46 10:24:0034[facility]annCHEM LTZSR1337-02-87 10:24:0011.00 [facility]annCHEM ZLPWP2404-66-01 10:24:04442Hsafmbki HermannCHEM PANEL 2019-08-18 10:24:003.6[facility]annCHEM QLKVL8046-54-33 10:24:45083Zlczatql HermannCHEM LQJFV0944-27-63 10:24:0028[facility]annCHEM ZVVUP4291-71-80 10:24:0011.6[facility] HermannCHEM FSIWA6303-16-88 10:24:009.0[facility]annCHEM PHVOS4175-88-80 10:24:005[facility] NcyvvqdCADWUQRJRK9016-45-94 10:24:006.9 [facility] AxcmirqHANATVYQDS1659-46-40 10:24:003.13[facility]annHEMATOLOGY 2019-08-18 10:24:009.3[facility] MjglsjyLMGLBQPHRC8854-49-37 10:24:0027.4[facility] LnpggpcDILPGNRWUR2236-64-88 10:24:0087.7[facility] KirmqrqSWNSGUMEQS3768-93-77 10:24:00 Test Item Value Reference Range Interpretation Comments MCH (test code = MCH) 29.6 pg 27.0-31.0 [facility] GbatxlrNUJKICFWJO9033-89-52 10:24:0033.8[facility]annHEMATOLOGY 2019-08-18 10:24:0014.0[facility] MikiynyMLIWRFCWDT2691-24-73 10:24:13027Rhazwynd PswlllxBCCBBNBMZE9904-51-55 10:24:006.9[facility] AvexlmjDOCENFKFXV2391-87-14 10:24:0078.2[facility] UtfboxjYZNSCXUAEU6773-25-68 10:24:0012.2[facility] ZPPAXDQGLF4998-54-76 10:24:006.6[facility] PgzdpglLFDFQFGXIT3823-38-83 10:24:002.4 [facility] PjyzufsLXGLTSNVNU8218-95-90 10:24:000.6[facility]annHEMATOLOGY 2019-08-18 10:24:005.4[facility] IvlikejNRNUIUQTKD6672-03-74 10:24:000.8[facility] BbdufstMUSNEISEBT6118-59-17 10:24:000.5[facility] PftlpjbFCYYBZBNIF6981-00-27 10:24:000.2[facility] HermannCHEM XLOOX4891-27-54 10:24:91219Rejuphlb HermannCHEM FTWOZ3033-82-27 10:24:0034[facility] HermannCHEM EPQZI8896-94-20 10:24:0011.00 [facility]annCHEM VWJSL5069-17-70 10:24:99329Jokfbasx HermannCHEM PANEL 2019-08-18 10:24:003.6[facility] HermannCHEM UVOTK4846-79-44 10:24:04830Wwzihqam HermannCHEM GXZCR8150-50-50 10:24:0028[facility] HermannCHEM GMLWC1048-57-09 10:24:0011.6[facility] HermannCHEM JZPBF5004-92-95 10:24:009.0[facility] HermannCHEM WMPKO1364-23-41 10:24:005[facility] JciykvpAUZURYHFSW6724-67-38 10:24:006.9 [facility] MwxmwcgTTSAWDLLRA1336-21-25 10:24:003.13[facility] HermannHEMATOLOGY 2019-08-18 10:24:009.3[facility] HvgufkrWWLWGUQEIA1202-04-41 10:24:0027.4[facility] DcpdlrmPSUNFEHBRL4619-53-34 10:24:0087.7[facility] JcppazwNBOLPFNVFY7904-81-32 10:24:00 Test Item Value Reference Range Interpretation Comments MCH (test code = MCH) 29.6 pg 27.0-31.0 [facility] UkqthkpUKXTKALVFE5096-27-13 10:24:0033.8[facility] HermannHEMATOLOGY 2019-08-18 10:24:0014.0[facility] FugftuvQBTMCYERVI7198-03-88 10:24:00206Jjxpjkgi EutxjfrZNEXBWGUXO7728-12-99 10:24:006.9[facility] QquphfnNMYTAEMKLU0785-50-91 10:24:0078.2[facility] DhggiudFMSHBJRLWK4714-09-41 10:24:0012.2[facility] AJTJYQTFZL4260-98-93 10:24:006.6[facility] BzrdobmDXRPFNWQGH3032-01-97 10:24:002.4 [facility] CljbqjbBBVDBUBNIJ1239-85-60 10:24:000.6[facility] HermannHEMATOLOGY 2019-08-18 10:24:005.4[facility] PcyqvduEYQGOZPYUA0343-61-61 10:24:000.8[facility] ZecpqoiVLLRLHZDQD7472-47-21 10:24:000.5[facility] KaneqcyXMJCMDCUNH4822-40-25 10:24:000.2[facility] BjvkmbnLFWYOOJNDD2109-19-31 14:31:00Negative *NA*(08/17/19 8:31 AM)[facility] DbxuqtbMXQJOOFBHD1970-11-31 14:31:00Negative *NA*(08/17/19 8:31 AM)[facility] TdycmljTRIZEHPBYP0225-84-65 14:31:00Negative *NA*(08/17/19 8:31 AM) [facility] BikrliqOWXVZWTAOW2541-08-76 19:35:00 Test Item Value Reference Range Interpretation Comments PT (test code = PT) 12.2 s 12.0-14.7 [facility] IybdspjKZJKACEQVL5609-95-88 19:35:00 Test Item Value Reference Range Interpretation Comments INR (test code = INR) 0.92 1 0.85-1.17 [facility] LxmbwdfSKBLLVPFQJ3513-25-96 19:35:00 Test Item Value Reference Range Interpretation Comments PTT (test code = PTT) 37.1 s 22.9-35.8 [facility]llTIATNZSYXP2236-31-16 19:35:00 Test Item Value Reference Range Interpretation Comments PT (test code = PT) 12.2 s 12.0-14.7 [facility] CenterEqahsciHBACDPEPYY0202-12-74 19:35:00 Test Item Value Reference Range Interpretation Comments INR (test code = INR) 0.92 1 0.85-1.17 [facility] CenterLumnjkiXAPQBCZPBS4748-20-89 19:35:00 Test Item Value Reference Range Interpretation Comments PTT (test code = PTT) 37.1 s 22.9-35.8 [facility] CenterUfrtvihIENYICLPSK0143-00-58 19:35:00 Test Item Value Reference Range Interpretation Comments PT (test code = PT) 12.2 s 12.0-14.7 [facility] CenterKhjvxsxFAQUVXNXTV8685-21-51 19:35:00 Test Item Value Reference Range Interpretation Comments INR (test code = INR) 0.92 1 0.85-1.17 [facility] CenterIrbdqukPOUHGVNCRP3357-34-32 19:35:00 Test Item Value Reference Range Interpretation Comments PTT (test code = PTT) 37.1 s 22.9-35.8 [facility] CHEST 2 [id number] 19:34:12 Mild cardiomegaly. * * * * * * * * ORIGINAL REPORT * * * * * * * *PROCEDURE: XR CHEST 2 VW CLINICALINDICATION: pre kidney transplant evaluation Robyn Cagle is a58 year old male with history of ESRD and for pre kidney transplantevaluation. Please do chest xr pa lat COMPARISON: None FINDINGS: The lungs are clear. No pleural effusion or pneumothorax is seen. The heartis mildly enlarged. No acute bony abnormality. [facility], Radiant Results Inft User - 06/17/2019 2:34 PM CDT* * * * * * * * ORIGINAL REPORT * * * * * * * *PROCEDURE: XR CHEST 2 VWCLINICAL INDICATION: pre kidney transplant evaluation Robyn Cagle is a58 year old male with history of ESRD and for pre kidney transplantevaluation. Pleasedo chest xr pa latCOMPARISON: NoneFINDINGS:The lungs are clear. No pleural effusion or pneumothorax is seen. The heartis mildly enlarged. No acute bony abnormality.IMPRESSIONMild cardiomegaly.[facility]CHE[facility] PJNYJ0387-72-27 10:20:003[facility]CHE[facility] XKRDP9466-47-61 10:20:0096[facility]annCHE[facility] TTVXL1087-21-72 10:20:0068[facility]annCHE[facility] WXQLX5406-11-18 10:20:008.7[facility]annCHE[facility] GTAQJ9678-12-93 10:20:0016.7[facility]annCHE[facility] YTMBF6829-44-26 10:20:08212Fudtjgpj HermannCHEM ZEOEU2532-57-70 10:20:0025 [facility]annCHE[facility] MISCI8722-69-54 10:20:003.7[facility]annCHEM PANEL 2019-04-07 10:20:0093[facility]annCHEM LZPGQ7751-75-34 10:20:0015.20[facility]annCHE[facility] OPNZF8816-54-70 10:20:003[facility]annCHE[facility] RHQIP9218-49-01 10:20:0096[facility]annCHE[facility] YUWWO9741-88-65 10:20:0068[facility]annCHE[facility] BHMWS3225-08-80 10:20:008.7[facility]annCHEM GARUD3657-11-62 10:20:0016.7 [facility]annCHE[facility] KIGGH4905-09-95 10:20:03967Ploikkvj HermannCHEM PANEL 2019-04-07 10:20:0025[facility]annCHEM LSDWD5860-71-70 10:20:003.7[facility]annCHEM OLSBJ4024-54-72 10:20:0093[facility]annCHE[facility] IGTMN0427-32-70 10:20:0015.20[facility]annCHE[facility] XOIQI7439-24-73 10:20:003[facility]annCHE[facility] QBWSE3956-44-87 10:20:0096[facility]annCHE[facility] GPACI5540-32-97 10:20:0068 [facility]CHE[facility] SCVBJ1183-74-73 10:20:008.7[facility]annCHEM PANEL 2019-04-07 10:20:0016.7[facility]annCHEM HSNKM1563-06-89 10:20:28447Qhgatxyz HermannCHEM IPZZK8950-18-32 10:20:0025[facility]annCHEM MOQKG1444-35-20 10:20:003.7[facility]annCHEM NOKDF7499-47-36 10:20:0093[facility]annCHE[facility] GDJFR9303-47-13 10:20:0015.20[facility]annCARDIAC SLCMLMT9528-35-13 14:42:00 0.03[facility]annCARDIAC QPGRFKX2151-68-85 14:42:000.03[facility] CARDIAC HTZJHTF1843-16-53 14:42:000.03[facility] HermannANEMIA QGAVQ6941-13-16 08:16:36082Cbejeazm HermannCARDIAC OJSPGKN2482-02-65 08:16:000.04[facility]annCHEM QQXPD9000-85-88 08:16:001.8[facility]annCHEM IYFWE5170-79-52 08:16:003[facility]annCHEM RNNLA9759-21-31 08:16:00 Test Item Value Reference Range Interpretation Comments A/G Ratio (test code = A/G Ratio) 0.6 1 0.7-1.6 [facility]CHE[facility] JEHPK7798-41-40 08:16:00 Test Item Value Reference Range Interpretation Comments B/C Ratio (test code = B/C Ratio) 4 1 6-25 [facility]CHE[facility] OSDYP5395-09-57 08:16:003.4[facility]annCHEM PANEL 2019-04-06 08:16:000.4[facility]annCHEM HRPWD2041-59-25 08:16:0018.3[facility]annCHEM RLOFG7075-67-67 08:16:0093[facility]annCHEM LYLFM6308-15-86 08:16:0023[facility]annCHEM SODDZ2191-39-59 08:16:008.1[facility]annCHEM WPCDD0531-13-23 08:16:0057[facility]annCHEM HNDMB8880-73-78 08:16:0060 [facility] HermannCHEM EFZKO7347-40-43 08:16:41945Jukrtwrw HermannCHEM PANEL 2019-04-06 08:16:0015.90[facility]annCHEM RAINH7129-75-06 08:16:004.3[facility]annCHEM RUFNS1856-94-71 08:16:0021[facility]annCHEM CMNUE9434-99-08 08:16:0076[facility]annCHEM LYNDJ8817-21-45 08:16:0016[facility]annCHEM KJVXN6537-90-04 08:16:005.6[facility]annCHEM SVCZC9088-88-89 08:16:002.2 [facility] QzcmddtSFGBNHPTIU6696-76-59 08:16:00 Test Item Value Reference Range Interpretation Comments PTT (test code = PTT) 41.5 s 22.9-35.8 [facility]wallVazkkutGYHUNLSCDG2797-30-40 08:16:00 Test Item Value Reference Range Interpretation Comments PT (test code = PT) 14.4 s 12.0-14.7 [facility] RockwallNqubtunQRMLBUPIGJ4215-40-96 08:16:00 Test Item Value Reference Range Interpretation Comments INR (test code = INR) 1.14 1 0.85-1.17 [facility] RockwallHpbzcyrUQOTEEEWZX0943-31-63 08:16:0015.5[facility]annHEMATOLOGY 2019-04-06 08:16:68526Cojtmkmy DadprwiJNYBAILGWS9834-40-38 08:16:00 Test Item Value Reference Range Interpretation Comments MCH (test code = MCH) 28.7 pg 27.0-31.0 [facility] RbxxkfnBDGUACZBSF9938-31-94 08:16:0034.2[facility]annHEMATOLOGY 2019-04-06 08:16:0084.1[facility] AsntcpiWCFJOLQZQT8477-71-17 08:16:0011.4[facility] ZrxqpmoCNBUWRASTR1602-82-02 08:16:0033.2[facility] CawwspkYLQNWNXMEH5160-51-48 08:16:0010.2[facility] BngvxvlRMRTRFWVBT8276-22-50 08:16:003.95[facility] GRCTVFGLFA8958-12-30 08:16:008.3[facility] XvrmydpVHYWBUQVSB5360-83-04 08:16:00 84.8[facility] IqfzosfDPMEPZPRWQ2283-15-92 08:16:000.1[facility]annHEMATOLOGY 2019-04-06 08:16:000.5[facility] YsfyvoqZFDMUKDZLK7545-41-78 08:16:001.2[facility] UrjofomETFBICYIPT2515-70-42 08:16:006.5[facility] TbyaaoxZEHPEDJFVA7903-72-27 08:16:007.0[facility] CnvceqsLWMWKFOWKU6041-11-57 08:16:000.1[facility] KDKKKKXNHC0474-76-05 08:16:000.7[facility] KjakysmDHNYZWXZLV7688-10-31 08:16:000.7 [facility] RgsdjtlXIYCNMAKDS7101-10-16 08:16:008.7[facility] HermannANEMIA STUDY 2019-04-06 08:16:95554Lkutlvjg HermannCARDIAC ROMRCIA3977-65-41 08:16:000.04 [facility]annCHEM SGWRQ8761-08-84 08:16:001.8[facility] HermannCHEM PANEL 2019-04-06 08:16:003[facility] HermannCHEM IFYEB0692-17-18 08:16:00 Test Item Value Reference Range Interpretation Comments A/G Ratio (test code = A/G Ratio) 0.6 1 0.7-1.6 [facility]annCHEM PNJNI5347-83-04 08:16:00 Test Item Value Reference Range Interpretation Comments B/C Ratio (test code = B/C Ratio) 4 1 6-25 [facility] HermannCHEM PXHNI6226-50-55 08:16:003.4[facility] HermannCHEM PANEL 2019-04-06 08:16:000.4[facility] HermannCHEM MBNPB6648-32-10 08:16:0018.3[facility] HermannCHEM VKNPZ2613-38-87 08:16:0093[facility] HermannCHEM YBRKP7839-04-26 08:16:0023[facility] HermannCHEM IMSTN0298-63-59 08:16:008.1[facility] HermannCHEM PHCGZ0491-40-55 08:16:0057[facility] HermannCHEM UXCAM0813-38-46 08:16:0060 [facility] HermannCHEM JDVRD6738-69-67 08:16:16470Cvejytka HermannCHEM PANEL 2019-04-06 08:16:0015.90[facility] HermannCHEM GTSTW3554-92-11 08:16:004.3[facility] HermannCHEM ZGMIP4737-13-64 08:16:0021[facility] HermannCHEM TIHZD2423-97-60 08:16:0076[facility] HermannCHEM WLCYS6803-41-59 08:16:0016[facility] HermannCHEM AZSAY7221-16-43 08:16:005.6[facility] HermannCHEM TALPL4574-06-94 08:16:002.2 [facility]wallRbqtxjbPUSDDZYJIU2757-40-96 08:16:00 Test Item Value Reference Range Interpretation Comments PTT (test code = PTT) 41.5 s 22.9-35.8 [facility]CoyrarbWZNZLKZSBS0302-72-35 08:16:00 Test Item Value Reference Range Interpretation Comments PT (test code = PT) 14.4 s 12.0-14.7 [facility]wallIwsrdfmHHPEZIAZCC3866-16-14 08:16:00 Test Item Value Reference Range Interpretation Comments INR (test code = INR) 1.14 1 0.85-1.17 [facility]wallZxvjnraWEGPYWEZDP7302-03-93 08:16:0015.5[facility] HermannHEMATOLOGY 2019-04-06 08:16:40028Dibtipsu KciuvthASXGNAJUPJ0782-10-55 08:16:00 Test Item Value Reference Range Interpretation Comments MCH (test code = MCH) 28.7 pg 27.0-31.0 [facility]wallIufqmbgJDLYVTLVJW4070-62-90 08:16:0034.2[facility] HermannHEMATOLOGY 2019-04-06 08:16:0084.1[facility] TrxmawbWQYNFTWSLH8518-84-28 08:16:0011.4[facility] DzjhxllCUEZZVELDN1217-29-37 08:16:0033.2[facility] DqhxysoEQILCZZRMF1672-32-98 08:16:0010.2[facility] KdoknikRFOTPUGHGQ2045-06-46 08:16:003.95[facility] XWBFSFFUOO9595-03-33 08:16:008.3[facility] LutzpryHXJBGEYFQH4611-77-14 08:16:00 84.8[facility] JaruznaJEAVSRZUTG6655-01-78 08:16:000.1[facility] HermannHEMATOLOGY 2019-04-06 08:16:000.5[facility] QnxszijVOYQNWVWZE2545-08-03 08:16:001.2[facility] FczcbkmOYZOKDQGZU9746-28-34 08:16:006.5[facility] QpnijzsCMJITEXWRT2402-69-67 08:16:007.0[facility] KcvrexbEFPJKLFNGA6296-96-15 08:16:000.1[facility] IUEETVQIUP9170-05-69 08:16:000.7[facility] PqigweyCHAARVQCWS3035-48-32 08:16:000.7 [facility] NkvgbnrGRRJRPQUXJ5767-78-17 08:16:008.7[facility] HermannANEMIA STUDY 2019-04-06 08:16:76058Plzvweqs HermannCARDIAC IAHHVIO6938-19-90 08:16:000.04 [facility] HermannCHEM GXFYI5399-62-23 08:16:001.8[facility] HermannCHEM PANEL 2019-04-06 08:16:003[facility] HermannCHEM SLYKG3521-14-05 08:16:00 Test Item Value Reference Range Interpretation Comments A/G Ratio (test code = A/G Ratio) 0.6 1 0.7-1.6 [facility] HermannCHEM GSLCE1186-37-08 08:16:00 Test Item Value Reference Range Interpretation Comments B/C Ratio (test code = B/C Ratio) 4 1 6-25 [facility] HermannCHEM SLWBO0828-40-83 08:16:003.4[facility] HermannCHEM PANEL 2019-04-06 08:16:000.4[facility] HermannCHEM MMBHS1595-32-26 08:16:0018.3[facility] HermannCHEM GSBRU0615-13-89 08:16:0093[facility] HermannCHEM WVHWL8437-67-62 08:16:0023[facility] HermannCHEM UCJZH7977-00-82 08:16:008.1[facility] HermannCHEM HBLQL1425-43-74 08:16:0057[facility] HermannCHEM CUPTM3779-14-26 08:16:0060 [facility] HermannCHEM CZHZA6272-14-65 08:16:70840Oqjzbfzm HermannCHEM PANEL 2019-04-06 08:16:0015.90[facility] HermannCHEM HJZTJ6746-72-74 08:16:004.3[facility] HermannCHEM WIHRS4933-27-00 08:16:0021[facility] HermannCHEM UNMYF4424-36-56 08:16:0076[facility] HermannCHEM CTBRR5323-44-50 08:16:0016[facility] HermannCHEM EBEEP6815-91-09 08:16:005.6[facility] HermannCHEM AWKLH5070-08-44 08:16:002.2 [facility]wallDxmrcudKPXGOORGMV3059-07-60 08:16:00 Test Item Value Reference Range Interpretation Comments PTT (test code = PTT) 41.5 s 22.9-35.8 [facility]wallVjgncqwKWJIJNOJFE4210-76-99 08:16:00 Test Item Value Reference Range Interpretation Comments PT (test code = PT) 14.4 s 12.0-14.7 [facility]wallLlqvyqhTBSPWXRUSB0288-94-88 08:16:00 Test Item Value Reference Range Interpretation Comments INR (test code = INR) 1.14 1 0.85-1.17 [facility]wallRozjyswHUYPESHZTB1245-06-93 08:16:0015.5[facility] HermannHEMATOLOGY 2019-04-06 08:16:52905Wychhuta FtgvnuuLKLGNOQJML2048-85-58 08:16:00 Test Item Value Reference Range Interpretation Comments MCH (test code = MCH) 28.7 pg 27.0-31.0 [facility]wallOljoucjONLUMLBJKQ3546-57-68 08:16:0034.2[facility] HermannHEMATOLOGY 2019-04-06 08:16:0084.1[facility] MjtromnGPZQSUKRXY5608-00-04 08:16:0011.4[facility] DivzgvbDCEUEXMBOZ7005-21-37 08:16:0033.2[facility] SnkzpylLUDLURQRCI2374-89-37 08:16:0010.2[facility] OkjdlvhGMDQAUVQLK8390-62-02 08:16:003.95[facility] RGURNFALRN4721-95-80 08:16:008.3[facility] OfmiexmXGOLVDVKMI6181-57-50 08:16:00 84.8[facility] MpnoikpSAPDDPCPZS0601-58-53 08:16:000.1[facility] HermannHEMATOLOGY 2019-04-06 08:16:000.5[facility] LvovyegNSBADSLIVV5451-91-39 08:16:001.2[facility] DaeusaoXYZTUDVWPN0145-45-47 08:16:006.5[facility] QtmbcybNUBSVXHEDO4001-26-88 08:16:007.0[facility] QktukoyCFAEKAHIUZ3998-62-32 08:16:000.1[facility] WZSUUHXJQU1653-92-20 08:16:000.7[facility] RuoxgugHMCTIJJFRJ8899-72-00 08:16:000.7 [facility] RghwaquJYGYTCCONF6730-89-52 08:16:008.7[facility] HermannCHEM PANEL 2019-04-06 04:17:000.3[facility] HermannCHEM ELEVL4697-22-85 04:17:000.3[facility] HermannCHEM UZJPM8218-39-64 04:17:000.3[facility] HermannCARDIAC MHSRKGA5526-18-08 02:25:000.03[facility] JwpehdaGYKLEG1707-66-65 02:25:00 Test Item Value Reference Range Interpretation Comments CHD Risk (test code = CHD Risk) 3.10 1 4.00-7.30 [facility] QdwunqiTORVAL6315-29-19 02:25:00 Test Item Value Reference Range Interpretation Comments VLDL (test code = VLDL) 21 1 [facility] JztidilTQSGOW6962-65-55 02:25:0058[facility] HabfmpbOARZLQ6421-79-02 02:25:96038Efhwjbwz WyipzhlEADGYQ2873-40-64 02:25:60595Wraoccvw HermannLIPIDS 2019-04-06 02:25:21661Xwpjmbpc HermannSPECIAL LRLGHGMVC6364-22-56 02:25:004.0 [facility] HermannCARDIAC EUHYQYU2224-61-57 02:25:000.03[facility] HermannLIPIDS 2019-04-06 02:25:00 Test Item Value Reference Range Interpretation Comments CHD Risk (test code = CHD Risk) 3.10 1 4.00-7.30 [facility] HtckdegCMKRTY0212-97-02 02:25:00 Test Item Value Reference Range Interpretation Comments VLDL (test code = VLDL) 21 1 [facility] OgvwkeaTVBSZA0912-30-15 02:25:0058[facility] PtxfaerQSIWZO9369-54-46 02:25:85838Osrroyzg LmslxftAFNYMT0413-47-21 02:25:39056Mjezxrtx HermannLIPIDS 2019-04-06 02:25:06052Gyhndimy HermannSPECIAL BTULCGKYN0744-78-60 02:25:004.0 [facility] HermannCARDIAC IYQHTHK4430-02-93 02:25:000.03[facility] HermannLIPIDS 2019-04-06 02:25:00 Test Item Value Reference Range Interpretation Comments CHD Risk (test code = CHD Risk) 3.10 1 4.00-7.30 [facility] ColfdbzSBEMMQ3633-90-20 02:25:00 Test Item Value Reference Range Interpretation Comments VLDL (test code = VLDL) 21 1 [facility] VqefhmnTKNRFJ8177-71-62 02:25:0058[facility] QrroadtYUNPSR9273-02-28 02:25:12616Nsvejdrq FetpcbfKXPZRJ5743-34-58 02:25:67197Qdxjzepy HermannLIPIDS 2019-04-06 02:25:51627Kvgvxdvf HermannSPECIAL WMISOXCVG9283-49-18 02:25:004.0 [facility] HermannCHEM EEJQG2912-86-59 12:41:006.1[facility] HermannELECTROLYTES 2018-07-23 12:41:0014.8[facility] QqjgqvkAAEUJMYNJSNN6588-35-27 12:41:004[facility] NdqextpPTYPKMHCSFGD2188-61-26 12:41:0027[facility] HtxpbjfMJKUCPKQESTQ8577-67-19 12:41:007.9[facility] FfheguuHTCYMBUXJAIS9939-38-39 12:41:0012.90[facility] ZCZYKQLWZGSG4064-60-27 12:41:0060[facility] PluiuyuGQKNAYXDSISD3388-53-58 12:41:00 139[facility] TggpjnoNCBMYBVHVEFB4087-64-08 12:41:0093[facility] HermannELECTROLYTES 2018-07-23 12:41:00426Ggtbramm LglhknyIPECZETAZMMB3685-14-31 12:41:004.8[facility] XosqouiZETNOBKGQO8107-81-13 12:41:0035.3[facility] KjcvmszRLECJDNPRE2001-55-27 12:41:007.8[facility] EoimtwbSHWHVUCXFX8955-21-26 12:41:0022.0[facility] LRGNNWFPMU7783-10-72 12:41:002.68[facility] PgltrnvZSYZMUZNKK8653-99-87 12:41:00 4.4[facility] LyjlpyyJSRIPKZDOZ9325-17-10 12:41:0014.5[facility] HermannHEMATOLOGY 2018-07-23 12:41:0082.1[facility] FrhjoplXFJCMJLEHS6604-73-49 12:41:00 Test Item Value Reference Range Interpretation Comments MCH (test code = MCH) 29.0 pg 27.0-31.0 [facility] SyqdponMVXMIHYRAQ4199-05-15 12:41:20274Wtuxwlex HermannHEMATOLOGY 2018-07-23 12:41:007.3[facility] VpfkpscRGQMLBMJTI9191-59-32 12:41:000.4[facility] QepaateAAKKZYLMBO0147-19-02 12:41:000.2[facility] ZkawrigIHIFKERLHQ6683-54-66 12:41:009.7[facility] ZllpkyyPMTRWYCUZO1582-18-66 12:41:003.7[facility] TWMEBLTKZB5346-17-20 12:41:000.8[facility] OsxcxzoGCMEVZERGY0367-90-20 12:41:003.0 [facility] RiwzazbJHPGOFYQLM7618-26-43 12:41:000.8[facility] HermannHEMATOLOGY 2018-07-23 12:41:0067.6[facility] MuarkrpGFUYQXCWBR1532-20-67 12:41:0018.2[facility] HermannCHEM FSVML6156-90-81 12:41:006.1[facility] JvppysdCNYEXDGVLVVZ2029-79-28 12:41:0014.8[facility] YdegkusOAQAAIUATCAG1119-57-70 12:41:004[facility] SMVDRNJLSDFK8720-94-97 12:41:0027[facility] TvzuhneIFJRTOYSAOYM3052-92-74 12:41:00 7.9[facility] XuhxrfoTBSEKERLTFXN9683-13-86 12:41:0012.90[facility] LFJQUDOOYIDC7633-64-55 12:41:0060[facility] HvxkhcaABPBUYEHSFGO2411-25-09 12:41:00 139[facility] ErjebqxREPYCHKZNRUM3518-99-31 12:41:0093[facility] HermannELECTROLYTES 2018-07-23 12:41:77616Nkvyebzf WuhbcyiXOEKGPSYOIHN3108-81-29 12:41:004.8[facility] NmyvdwcBBYBWDDIPJ8074-64-63 12:41:0035.3[facility] PigltxtZESNUKLMKC1657-75-10 12:41:007.8[facility] KxqjjzvFMTXFNSODJ9239-88-50 12:41:0022.0[facility] EPSXCLGMGX8979-99-51 12:41:002.68[facility] QgskzmsKDNQPAHNJU6319-04-95 12:41:00 4.4[facility] OaluvzwNKUHBECEGY3313-36-82 12:41:0014.5[facility] HermannHEMATOLOGY 2018-07-23 12:41:0082.1[facility] DwxwyyuTBSKITLMCQ0472-25-68 12:41:00 Test Item Value Reference Range Interpretation Comments MCH (test code = MCH) 29.0 pg 27.0-31.0 [facility] ThnymuyXESGZAEVQH7783-58-97 12:41:75821Hkvwhpat HermannHEMATOLOGY 2018-07-23 12:41:007.3[facility] YjclwdjJYNJJVICPR4847-14-48 12:41:000.4[facility] FgpzixaHXLXAHYXFG0531-97-41 12:41:000.2[facility] IzbsvhrERDSGNTEJI7787-80-40 12:41:009.7[facility] MxykmunUDUUMTVGSP0970-62-59 12:41:003.7[facility] MHCACRFLKY2145-15-80 12:41:000.8[facility] RcwhelsANSQRVIDFT4114-96-89 12:41:003.0 [facility] QxnwtvrPEEAQWIOEF9869-85-74 12:41:000.8[facility] HermannHEMATOLOGY 2018-07-23 12:41:0067.6[facility] PibqqjhEEHVBMJECN9196-88-77 12:41:0018.2[facility] HermannCHEM EAEDJ9569-01-07 12:41:006.1[facility] ImgucpiRLWMLKCVTSYJ2770-40-07 12:41:0014.8[facility] UshbtssYMDGTCSBBLJF7112-59-18 12:41:004[facility] USNLDAKKSEHY8498-67-96 12:41:0027[facility] LzozumyDPJAUVLAJDAE6065-79-80 12:41:00 7.9[facility] YojgipmFFKCEYRNVFNF9590-00-11 12:41:0012.90[facility] CPNSCDVCGFIB2677-42-07 12:41:0060[facility] VrsmzziIMLXOLNCBJNO6905-60-10 12:41:00 139[facility] SmttznoVNJRIFOWAPLZ7813-09-97 12:41:0093[facility] HermannELECTROLYTES 2018-07-23 12:41:12727Zancopuo TebelgbLKHIYMUZXINU7236-29-66 12:41:004.8[facility] JeqbfweXHCEZKLHMU6135-62-62 12:41:0035.3[facility] QdzoflmURGDRABBZG8740-45-96 12:41:007.8[facility] KrfgqoaMFPIVUXPIE3487-14-23 12:41:0022.0[facility] PEUBXCYPCO4278-36-75 12:41:002.68[facility] LbenvosNLAYQGOXBT8282-01-58 12:41:00 4.4[facility] PwcbppyOMCGLDVHYA4450-90-61 12:41:0014.5[facility] HermannHEMATOLOGY 2018-07-23 12:41:0082.1[facility] QpimmqiCHCJTTTTHR0682-85-41 12:41:00 Test Item Value Reference Range Interpretation Comments MCH (test code = MCH) 29.0 pg 27.0-31.0 [facility] YqmdgeoVQUUDJYTWX9332-01-14 12:41:43609Ivdmwfuq HermannHEMATOLOGY 2018-07-23 12:41:007.3[facility] WfbibaoBXTJAVLZVM5634-13-52 12:41:000.4[facility] QupevqfSJZILSXWJP1602-89-87 12:41:000.2[facility] BixfiuqWUMSFZOPWE9537-43-16 12:41:009.7[facility] LadypjpZXCPOUNTJT1997-56-97 12:41:003.7[facility] LPJQJTOTWS5901-35-34 12:41:000.8[facility] VkxrdyzIHPJNJHSCA8657-81-90 12:41:003.0 [facility] KavuoxmBOEVVLHDGV8624-72-76 12:41:000.8[facility] HermannHEMATOLOGY 2018-07-23 12:41:0067.6[facility] PewytovZPBEVPRBFX5923-57-45 12:41:0018.2[facility] HermannCHEM ANPBH6919-11-55 11:17:002.5[facility] HermannCHEM NGPZF5411-61-02 11:17:008.3[facility] XgzloipIDFSQVLOQSUP2243-97-24 11:17:0022[facility] XCXJERTUOAMY9688-16-18 11:17:007.5[facility] OqljbagYCVARRVHHEWL0072-15-96 11:17:0098[facility] NypuviaASQYINIOGGJQ1792-32-82 11:17:002[facility] ZBLCAFQOQUYY9101-15-88 11:17:0019.20[facility] QvffykdAIRHPHYVOTVU6345-80-25 11:17:0097[facility] LdpnamjWLVCWIICNSKB2338-67-18 11:17:004.7[facility] TAJPTNPGZIWG6950-63-58 11:17:80246Zzyfjzoh RyvxhxdHKZTGRGZDOXX5368-66-15 11:17:0082[facility] HkusslgMSBDRWAGMGRB5543-43-24 11:17:0019.7[facility] VVWKQPQRFL3197-30-05 11:17:004.9[facility] WevvffeSTYPFTCKSN5417-42-33 11:17:00 2.85[facility] MppynhfFEUVGTTFWO7447-45-09 11:17:0082.3[facility] HermannHEMATOLOGY 2018-07-22 11:17:00 Test Item Value Reference Range Interpretation Comments MCH (test code = MCH) 28.8 pg 27.0-31.0 [facility] TgtseegKBGOYIOXHZ9143-16-67 11:17:008.2[facility] HermannHEMATOLOGY 2018-07-22 11:17:0023.4[facility] NncuzybUASOFAIYAE4406-57-27 11:17:0015.0[facility] QwwiromOGQMXFLPLE1262-81-30 11:17:0035.0[facility] UwgiqifVRSVPVFEYV3316-96-38 11:17:007.4[facility] FlksnxrESITSFIOOA4906-08-83 11:17:07769Thorjwex [facility] AREVQTBQCV5322-49-94 11:17:0020.3[facility] EofqcxzRYXVPMLIEP9856-54-57 11:17:00 1.0[facility] VcgrmugZCWLOJQJDN9086-71-41 11:17:0067.1[facility] HermannHEMATOLOGY 2018-07-22 11:17:003.3[facility] WarbjqoCKKKSRLDBA7482-18-86 11:17:003.1[facility] XliehusMFFGTZJPDS7865-45-56 11:17:008.5[facility] NykjzybWUPINPSURP1440-40-51 11:17:000.4[facility] MifwyywTVMKVCFUXR0750-82-96 11:17:001.0[facility] YIYKEUMDCZ1304-29-26 11:17:000.1[facility] CntiwgwXAMFJMAUBD2011-60-17 11:17:00 Negative *NA*(07/22/18 6:17 AM)[facility] HermannCHEM QAPEV7079-30-74 11:17:002.5 [facility] HermannCHEM FVKTY0133-11-71 11:17:008.3[facility] HermannELECTROLYTES 2018-07-22 11:17:0022[facility] IrvjkrgJIKYOFZPQVEG7840-04-78 11:17:007.5[facility] WndplmuAIWWNGKCEKBT5816-27-65 11:17:0098[facility] NuewjrlQMKZNSFJTWOA4650-11-62 11:17:002[facility] IkiccapLNPBXIOMXYLB6968-10-49 11:17:0019.20[facility] MFANJCAYCYVR5219-21-50 11:17:0097[facility] LiuiqhtKTWMKYCCCFFO4594-72-16 11:17:00 4.7[facility] ArkfhmyYALJSJWETXLD9524-28-06 11:17:74235Xxnudrfh [facility] CLQGOPNDBXFR2032-45-61 11:17:0082[facility] KldnhtrRTOSXPYNXHEP1303-18-82 11:17:00 19.7[facility] SzrvhvfKKGFUXBXVU7856-24-59 11:17:004.9[facility] HermannHEMATOLOGY 2018-07-22 11:17:002.85[facility] FeyhqtpRCBWPJBSAZ1756-99-05 11:17:0082.3[facility] QcszztzWTYSLDACZW2331-11-54 11:17:00 Test Item Value Reference Range Interpretation Comments MCH (test code = MCH) 28.8 pg 27.0-31.0 [facility] IukrhylRDLRRPKISL3387-03-30 11:17:008.2[facility] HermannHEMATOLOGY 2018-07-22 11:17:0023.4[facility] EmttyjbZYOAACDTZE1246-93-07 11:17:0015.0[facility] ZemvygsAEOMTFSXZQ3333-92-36 11:17:0035.0[facility] WztljpyZXWPGNUJNF5109-83-90 11:17:007.4[facility] EijapddQCTOQZSMNM3816-05-38 11:17:42242Dchekgsf [facility] ENDHZFUNPY1733-56-36 11:17:0020.3[facility] MqojwibTTBGTEFGTN8174-78-06 11:17:00 1.0[facility] VtxguiyMVVKUUYELH6939-47-51 11:17:0067.1[facility] HermannHEMATOLOGY 2018-07-22 11:17:003.3[facility] ChxgdftOIGKHQKJZX4908-21-35 11:17:003.1[facility] QwechloVTVYWKYFQY1077-28-11 11:17:008.5[facility] TxrqtnmXMTNMBZUYU2574-65-89 11:17:000.4[facility] GlralywJFMXNHXFIG8925-53-75 11:17:001.0[facility] FMBVAJGPAS3697-58-08 11:17:000.1[facility] NuvyihoXSRNLCKYPZ4472-98-85 11:17:00 Negative *NA*(07/22/18 6:17 AM)[facility] HermannCHEM PQWVG7696-84-62 11:17:002.5 [facility] HermannCHEM RZBDX0944-66-77 11:17:008.3[facility] HermannELECTROLYTES 2018-07-22 11:17:0022[facility] DmodifcGBPJPTQHYNZP3195-56-45 11:17:007.5[facility] OwlwbfsFXBUWLDUXTOS4338-51-64 11:17:0098[facility] GapdyriTVJKJUPXBADD5000-49-81 11:17:002[facility] BrzlfweBVGHCVZOZQPD6074-52-15 11:17:0019.20[facility] SIPUUKPPDLCA3573-88-56 11:17:0097[facility] TyznmprJVMZHJASZEKA6321-00-79 11:17:00 4.7[facility] WsaopcpULRJMXQJEYJU7841-08-12 11:17:26288Vgrzekxq [facility] OMNZLLUIILOF8769-32-87 11:17:0082[facility] HbrirrtZQIFANKXYVQL1412-42-76 11:17:00 19.7[facility] NdzwusoPOABHVUSVS9939-23-68 11:17:004.9[facility] HermannHEMATOLOGY 2018-07-22 11:17:002.85[facility] DdiejbjQZRWZCYAWW9737-69-23 11:17:0082.3[facility] PioauwuTOOWSOEXQS5735-07-94 11:17:00 Test Item Value Reference Range Interpretation Comments MCH (test code = MCH) 28.8 pg 27.0-31.0 [facility] HdxdsskDPDYKKSCHB0415-66-87 11:17:008.2[facility] HermannHEMATOLOGY 2018-07-22 11:17:0023.4[facility] SqnistjRCSGERECTP9003-24-59 11:17:0015.0[facility] CcrtnlwFVJGISJHDB3460-36-68 11:17:0035.0[facility] QnwnmhkAIRKMOQEQV2315-50-91 11:17:007.4[facility] QutoazrKCYOCJWJXY6904-18-56 11:17:49188Ddpcduxi [facility] DMUWUOHXRD9048-04-06 11:17:0020.3[facility] ZyoxdqtBUFVHFTPRC4276-00-54 11:17:00 1.0[facility] OyflmyaBCGSOBNFKO0512-03-56 11:17:0067.1[facility] HermannHEMATOLOGY 2018-07-22 11:17:003.3[facility] CckgxmiDBLVHBMVQN7748-41-88 11:17:003.1[facility] XbidzsmRAXJBTVOTB4278-10-80 11:17:008.5[facility] TdlfomcLYVBMHOGBX9916-74-69 11:17:000.4[facility] SzzirvhONEDCKRHIX3564-69-00 11:17:001.0[facility] GTFUYAXYZN7128-27-38 11:17:000.1[facility] AshrxubVKCABBCFVX7648-76-42 11:17:00 Negative *NA*(07/22/18 6:17 AM)[facility] HermannCARDIAC IJPHCCT4569-53-99 02:46:5685567Gxkjxgte HermannCARDIAC XCDXASS9595-85-94 02:46:00<0.02[facility] HermannCARDIAC BMXIRMD9801-28-92 02:46:0091[facility] HermannCHEM MPQSL2234-77-21 02:46:0095[facility] HermannCHEM UCWYU3977-82-89 02:46:003.2[facility] HermannCHEM HHDPR1845-40-64 02:46:00 Test Item Value Reference Range Interpretation Comments A/G Ratio (test code = A/G Ratio) 0.9 1 0.7-1.6 [facility] HermannCHEM JXATO8000-31-22 02:46:00 Test Item Value Reference Range Interpretation Comments B/C Ratio (test code = B/C Ratio) 5 1 6-25 [facility] HermannCHEM UJRIP7169-42-47 02:46:0018.7[facility]annCHE[facility] PANEL 2018-07-22 02:46:002[facility] DCMSK3494-26-37 02:46:007.6[facility] XFCIL9711-19-31 02:46:0024[facility] VGONF3387-67-99 02:46:0098[facility] VHWQS1358-42-76 02:46:004.7[facility]CHE[facility] YBDLS5141-01-93 02:46:71627Zbhnpimz HermannCHEM IQDFR4475-90-33 02:46:002.8 [facility] YTJLH2755-10-86 02:46:0013[facility]annCHE[facility] PANEL 2018-07-22 02:46:009[facility] USPVP9403-72-97 02:46:0057[facility] FCXIK0724-76-29 02:46:006.0[facility] FLQZF1859-59-02 02:46:000.4[facility] IQMRX6140-72-14 02:46:0018.60[facility] CHEM QSKUW2750-71-98 02:46:0089[facility] TMCXP0811-39-06 02:46:0095 [facility] LfnylkmXVRWLQBKIK9407-47-46 02:46:0066.2[facility]annHEMATOLOGY 2018-07-22 02:46:0021.4[facility] XwlzyrfPJBUFRETBQ4725-05-85 02:46:007.7[facility] BiulegdRGUNVNHYUT7286-86-02 02:46:000.9[facility] EywgfjwZROPHLIZKK6192-96-11 02:46:001.2[facility] CzixmuwDDHSIDUOUW5951-07-57 02:46:000.3[facility] SFVPISSRJP0181-49-74 02:46:000.1[facility] TikqbimEQKUXSQJLN1697-16-23 02:46:002.7 [facility] CvfpcstGNFWVLXALD1308-68-00 02:46:003.5[facility]annHEMATOLOGY 2018-07-22 02:46:00 Test Item Value Reference Range Interpretation Comments PT (test code = PT) 14.4 s 12.0-14.7 [facility] AtdpoyuNZKHMXYAKS9144-82-09 02:46:00 Test Item Value Reference Range Interpretation Comments INR (test code = INR) 1.12 1 0.85-1.17 [facility] FcrwntxCHGZUYNDYH1110-24-25 02:46:00 Test Item Value Reference Range Interpretation Comments PTT (test code = PTT) 37.1 s 22.9-35.8 [facility] GtutsleGCQJFRRKBB9235-70-71 02:46:0014.8[facility]annHEMATOLOGY 2018-07-22 02:46:59492Mnlhvpfa BsxbcdxQYGFCYRCDF9605-60-20 02:46:007.6[facility] XszufqkAGRDPKDCIJ6215-81-65 02:46:002.83[facility] FztrlqdVEJDZWCKIM9067-92-04 02:46:004.1[facility] EfcycukEXVCSEBBSC0793-60-81 02:46:0035.2[facility] TBQKYTEGNZ6335-24-14 02:46:00 Test Item Value Reference Range Interpretation Comments MCH (test code = MCH) 28.8 pg 27.0-31.0 [facility] CjatihtMCHZSFYXUI0919-68-66 02:46:008.1[facility]annHEMATOLOGY 2018-07-22 02:46:0081.9[facility] LciqzmdQFCZIIDVCF4317-32-43 02:46:0023.2[facility]annCHEM LNZSR4256-96-47 02:46:0024[facility]CHE[facility] NORHJ5290-95-96 02:46:0098[facility]annCHEM DKIUD3950-62-96 02:46:004.7[facility]annCHE[facility] OCNJD9306-76-53 02:46:71088Xgmqhloy HermannCHEM BKWYK6299-14-72 02:46:002.8 [facility] WFEZL5947-02-81 02:46:0013[facility]annCHE[facility] PANEL 2018-07-22 02:46:009[facility]CHE[facility] IPBQH9162-97-53 02:46:0057[facility]CHE[facility] ZQCRZ5811-75-24 02:46:006.0[facility]CHE[facility] IFJLV1781-25-41 02:46:000.4[facility]CHE[facility] JVDLK7271-47-90 02:46:0018.60[facility] CHEM BWFZO8179-63-64 02:46:0089[facility]CHE[facility] YJAYR1019-54-88 02:46:0095 [facility] EskrzmjLNRUQXTHUX1041-64-53 02:46:0066.2[facility]annHEMATOLOGY 2018-07-22 02:46:0021.4[facility] WenhfjwJRNNZECBFY5218-10-42 02:46:007.7[facility] TmrqtikXHFYRYEKYF4985-32-70 02:46:000.9[facility] RleagtyYWFXJGRYXZ1353-99-08 02:46:001.2[facility] RxoptfcECLCMIBJKW0416-59-87 02:46:000.3[facility] GTVGHKBBOU2961-68-57 02:46:000.1[facility] VzwxzpwMYWZWLLAJJ1747-66-78 02:46:002.7 [facility] RyfogvxGHMJFRILJI4902-01-89 02:46:003.5[facility]annHEMATOLOGY 2018-07-22 02:46:00 Test Item Value Reference Range Interpretation Comments PT (test code = PT) 14.4 s 12.0-14.7 [facility] SnvlwzeDMJOLMYQUG4431-37-01 02:46:00 Test Item Value Reference Range Interpretation Comments INR (test code = INR) 1.12 1 0.85-1.17 [facility] DdzhskbSOHSQFSEEU3067-64-31 02:46:00 Test Item Value Reference Range Interpretation Comments PTT (test code = PTT) 37.1 s 22.9-35.8 [facility] KjarjniUYXENEMJHD9761-23-39 02:46:0014.8[facility]annHEMATOLOGY 2018-07-22 02:46:49630Sugkxszv FaifyrvFWITSWFQXF0829-88-82 02:46:007.6[facility] QxggwjtVGXLZTFEUT3486-61-13 02:46:002.83[facility] JpjwhsuIAPKHTGZBF8515-76-55 02:46:004.1[facility] KsnyzahJPIKDNAEBD3744-70-63 02:46:0035.2[facility] IXIITALNMW1651-40-01 02:46:00 Test Item Value Reference Range Interpretation Comments MCH (test code = MCH) 28.8 pg 27.0-31.0 [facility] HzvgbexMRGVKMCFMN1678-43-32 02:46:008.1[facility]annHEMATOLOGY 2018-07-22 02:46:0081.9[facility] ZmazaznGMERIHUUSP6843-68-38 02:46:0023.2[facility] HermannCARDIAC AMUXZKC5043-84-24 02:46:4054933Hfeebwsw HermannCARDIAC ENZYMES 2018-07-22 02:46:00<0.02[facility]annCARDIAC EBKHXWX7605-68-54 02:46:0091 [facility]annCHEM VAHCI6778-15-78 02:46:0095[facility]annCHEM PANEL 2018-07-22 02:46:003.2[facility]annCHEM HEPMD4798-87-06 02:46:00 Test Item Value Reference Range Interpretation Comments A/G Ratio (test code = A/G Ratio) 0.9 1 0.7-1.6 [facility] AOVHL3644-75-53 02:46:00 Test Item Value Reference Range Interpretation Comments B/C Ratio (test code = B/C Ratio) 5 1 6-25 [facility] OUXQB2164-12-33 02:46:0018.7[facility]annCHEM PANEL 2018-07-22 02:46:002[facility]annCHE[facility] VZYVM4172-99-21 02:46:007.6[facility]annCHE[facility] ZJJXI9589-76-38 02:46:0024[facility]annCHE[facility] IMFLI7351-26-60 02:46:0098[facility]CHE[facility] PXEGF1026-69-05 02:46:004.7[facility]annCHEM IWUUL3393-33-93 02:46:41048Wsprbbhf HermannCHEM NFNUN8604-97-28 02:46:002.8 [facility]annCHE[facility] BMACO2859-13-02 02:46:0013[facility]annCHEM PANEL 2018-07-22 02:46:009[facility]annCHE[facility] ZBEQB6588-37-32 02:46:0057[facility]annCHE[facility] AGKQR1738-10-63 02:46:006.0[facility]annCHE[facility] JIPRW7541-07-83 02:46:000.4[facility]annCHE[facility] ZCFXC9481-32-84 02:46:0018.60[facility] CHEM JDAYD4743-02-81 02:46:0089[facility]CHEM YJMYW7135-34-87 02:46:0095 [facility] TswxsdqKBIMHMNHBB8616-58-57 02:46:0066.2[facility]annHEMATOLOGY 2018-07-22 02:46:0021.4[facility] OfxrbdsHGIAPSGWQM3417-36-19 02:46:007.7[facility] YapxwikIXOIPUWGMR5324-53-78 02:46:000.9[facility] MvdxvukOCDGWAPMME7149-07-29 02:46:001.2[facility] WqpkvogNDTGZXJNON8132-95-83 02:46:000.3[facility] OLPBTMOKDG6277-41-88 02:46:000.1[facility] PsgbujwFBLTFTTFVG7036-53-56 02:46:002.7 [facility] SoxfekuNHSLUHXJZS8389-52-43 02:46:003.5[facility]annHEMATOLOGY 2018-07-22 02:46:00 Test Item Value Reference Range Interpretation Comments PT (test code = PT) 14.4 s 12.0-14.7 [facility] RrgpqalVILGMQLEUI2673-31-28 02:46:00 Test Item Value Reference Range Interpretation Comments INR (test code = INR) 1.12 1 0.85-1.17 [facility] SguuqxtEDUKZNDIOY2641-68-98 02:46:00 Test Item Value Reference Range Interpretation Comments PTT (test code = PTT) 37.1 s 22.9-35.8 [facility] KxlimbwZOYUQJROEI6039-66-91 02:46:0014.8[facility]annHEMATOLOGY 2018-07-22 02:46:49668Awsjnheh GslkxxpDIXEHAHZUR9043-06-63 02:46:007.6[facility] BdzpmweRAHTVVZQVK9287-23-58 02:46:002.83[facility] UxbqdysMILABKCEOE8821-91-67 02:46:004.1[facility] CsleccmIYWQMHVWTA4296-75-01 02:46:0035.2[facility] GTMRQBBXNR8662-47-42 02:46:00 Test Item Value Reference Range Interpretation Comments MCH (test code = MCH) 28.8 pg 27.0-31.0 [facility] NbivhogOMGXBCVIJY0005-13-47 02:46:008.1[facility]annHEMATOLOGY 2018-07-22 02:46:0081.9[facility] FgxuhfnQAWHIPQXSC6270-81-99 02:46:0023.2[facility] HermannCARDIAC BQWRMOP7695-37-65 02:46:0435240Vmazzvzz HermannCARDIAC ENZYMES 2018-07-22 02:46:00<0.02[facility]annCARDIAC ONUXBMK9280-26-94 02:46:0091 [facility]annCHEM FNPVU7781-93-48 02:46:0095[facility]annCHEM PANEL 2018-07-22 02:46:003.2[facility]annCHEM WCFOV4750-63-28 02:46:00 Test Item Value Reference Range Interpretation Comments A/G Ratio (test code = A/G Ratio) 0.9 1 0.7-1.6 [facility]annCHEM ZLZWV3074-43-14 02:46:00 Test Item Value Reference Range Interpretation Comments B/C Ratio (test code = B/C Ratio) 5 1 6-25 [facility]annCHEM FMMMD7269-70-19 02:46:0018.7[facility]annCHEM PANEL 2018-07-22 02:46:002[facility]annCHEM UWFTK8715-12-97 02:46:007.6[facility]annCHEM YZYTD0246-49-33 22:52:0086[facility]annCHEM CFVRO0801-14-35 22:52:0097[facility]annCHEM CHGUV8474-58-07 22:52:005.2[facility]annCHEM KZFBM5659-29-97 22:52:12219Tswgplke HermannCHEM MZCNL7048-50-72 22:52:0017.30 [facility]annCHEM EGPMB6418-89-40 22:52:0098[facility]annCHEM PANEL 2018-07-20 22:52:003[facility]annCHEM NCHMF7327-09-61 22:52:0070[facility]annCHEM IYPXI7759-40-23 22:52:0010[facility]annCHEM MDZYM9143-40-38 22:52:000.4[facility]annCHEM HWIGL9851-88-07 22:52:006.8[facility]annCHEM CBTIJ5736-31-35 22:52:008.1[facility]annCHEM HKBZF6305-06-41 22:52:0024 [facility]annCHEM CBPQP0262-68-25 22:52:0019[facility]annCHEM PANEL 2018-07-20 22:52:003.3[facility]annCHEM NNMJQ0982-03-41 22:52:00 Test Item Value Reference Range Interpretation Comments A/G Ratio (test code = A/G Ratio) 0.9 1 0.7-1.6 [facility] HermannCHEM XUPLI2042-55-24 22:52:0019.2[facility]annCHEM PANEL 2018-07-20 22:52:003.5[facility]annCHEM YACQB3284-62-03 22:52:00 Test Item Value Reference Range Interpretation Comments B/C Ratio (test code = B/C Ratio) 5 1 6-25 [facility] MpyxrfhLOHHKSCIQB7225-07-55 22:52:56210Uyjrepkl HermannHEMATOLOGY 2018-07-20 22:52:006.8[facility] LzpdfraCUJJDRFCHI5788-63-18 22:52:0035.4[facility] JmegtmbQVJSYKNYLT2158-67-14 22:52:0015.1[facility] FlnfusvRJKGCNCNZR5033-90-98 22:52:0026.1[facility] VgzsmhvAACDJSBGUE8126-55-29 22:52:0081.4[facility] FKAFXLETXH5231-08-30 22:52:00 Test Item Value Reference Range Interpretation Comments MCH (test code = MCH) 28.8 pg 27.0-31.0 [facility] IcamokiBBGIBOIVCV7528-80-49 22:52:005.4[facility]annHEMATOLOGY 2018-07-20 22:52:003.20[facility] VhsvsetSEZNOGPPQJ3259-80-10 22:52:009.2[facility] NnscmsgPJHXCOYIDQ5425-09-03 22:52:0074.0[facility] ItxirqpSLAWSNNNSD6756-55-55 22:52:0015.5[facility] AnofqdbSQVRIMSKQW8243-05-95 22:52:006.7[facility] YQJOGCMDVR1527-91-70 22:52:002.8[facility] FmiqtqxTMETSLGYDF1990-52-75 22:52:001.0 [facility] EuljwgpVNQNFBBDTF5525-85-45 22:52:004.0[facility]annHEMATOLOGY 2018-07-20 22:52:000.1[facility] PtflsxgSRVIDCVMVP5169-64-55 22:52:000.2[facility] JanbvyyOZFXMNBDDD7517-26-19 22:52:000.8[facility] XdeppzzOLONYTFAPI9014-91-66 22:52:000.4[facility] HermannCHEM DMMUC4255-26-83 22:52:0086[facility]annCHEM ATNRK0124-33-32 22:52:0097[facility]annCHEM NNFHI7170-17-96 22:52:005.2 [facility]annCHEM AXCSN1380-51-22 22:52:27616Rcdxuorr HermannCHEM PANEL 2018-07-20 22:52:0017.30[facility] HermannCHEM NCUXE9625-58-39 22:52:0098[facility]annCHEM FUWJC9572-46-43 22:52:003[facility]annCHEM ASJPG5346-28-78 22:52:0070[facility]annCHEM AJZZS8752-97-13 22:52:0010[facility]annCHEM SFIEK5376-50-18 22:52:000.4[facility]annCHEM YBYHX1315-20-30 22:52:006.8 [facility]annCHEM AZKAD4627-22-94 22:52:008.1[facility]annCHEM PANEL 2018-07-20 22:52:0024[facility]annCHEM LNYIG2465-44-16 22:52:0019[facility]annCHEM YQTXI9011-75-28 22:52:003.3[facility] HermannCHEM SCSNJ1754-49-93 22:52:00 Test Item Value Reference Range Interpretation Comments A/G Ratio (test code = A/G Ratio) 0.9 1 0.7-1.6 [facility]annCHEM MHXAH3708-14-10 22:52:0019.2[facility]annCHEM PANEL 2018-07-20 22:52:003.5[facility] HermannCHEM KSQJI0790-19-00 22:52:00 Test Item Value Reference Range Interpretation Comments B/C Ratio (test code = B/C Ratio) 5 1 6-25 [facility] EltsmgtFBPHQDPJSF1187-82-21 22:52:17884Bpdcjrns HermannHEMATOLOGY 2018-07-20 22:52:006.8[facility] TflljglSJGUWFXGDZ9063-81-05 22:52:0035.4[facility] VspjwysBSIRJOEBWP1663-86-20 22:52:0015.1[facility] TtqlravEQTFCHVVZA1195-23-83 22:52:0026.1[facility] ShrqzlmAGPZOKAMTD2642-76-98 22:52:0081.4[facility] VUXXPVWPPF5206-56-63 22:52:00 Test Item Value Reference Range Interpretation Comments MCH (test code = MCH) 28.8 pg 27.0-31.0 [facility] EruxhqwJAMNWCTZHH5781-66-39 22:52:005.4[facility]annHEMATOLOGY 2018-07-20 22:52:003.20[facility] TsgzqiePRVCYYCWUW5198-06-49 22:52:009.2[facility] ZwnrixzIFYTSSAUMN5687-28-80 22:52:0074.0[facility] CjepjhrJPKFZTAFON1315-71-28 22:52:0015.5[facility] MgifgcrATOKPLKEXL9808-67-67 22:52:006.7[facility] DHYWEXZBNZ6898-64-47 22:52:002.8[facility] SsxrglnAZPEYXOSCF7482-23-48 22:52:001.0 [facility] DcywsvoVMOLQUGGCQ7639-92-96 22:52:004.0[facility]annHEMATOLOGY 2018-07-20 22:52:000.1[facility] EbfmonoUPXACNJFKH5815-46-65 22:52:000.2[facility] YmxevlvEBQULXXNEJ4218-71-82 22:52:000.8[facility] FxywxdqNELZLBDNDE8228-43-10 22:52:000.4[facility] HermannCHEM FVMWS7912-54-92 22:52:0086[facility]annCHEM JIOTA5356-79-76 22:52:0097[facility] HermannCHEM RGUHS1059-08-30 22:52:005.2 [facility]annCHEM QXFWD5105-96-23 22:52:62488Yxwkjsws HermannCHEM PANEL 2018-07-20 22:52:0017.30[facility] HermannCHEM WMGYT9057-45-23 22:52:0098[facility]annCHEM ZIIVS5412-92-75 22:52:003[facility]annCHEM NALTF1631-49-17 22:52:0070[facility]annCHEM MSUWS0964-61-15 22:52:0010[facility]annCHEM YFCEU8821-47-13 22:52:000.4[facility]annCHEM BZENK7985-63-13 22:52:006.8 [facility]annCHEM DVGXQ2151-10-09 22:52:008.1[facility]annCHEM PANEL 2018-07-20 22:52:0024[facility] HermannCHEM EFUNE5732-70-16 22:52:0019[facility]annCHEM CHXAN7512-72-51 22:52:003.3[facility]annCHEM LIGQG9177-29-38 22:52:00 Test Item Value Reference Range Interpretation Comments A/G Ratio (test code = A/G Ratio) 0.9 1 0.7-1.6 [facility]annCHEM EODWG7848-14-60 22:52:0019.2[facility]annCHEM PANEL 2018-07-20 22:52:003.5[facility]annCHEM NBUUM0819-96-94 22:52:00 Test Item Value Reference Range Interpretation Comments B/C Ratio (test code = B/C Ratio) 5 1 6-25 [facility] XsvrxosUBAJAVIAOR5190-49-32 22:52:64748Rlararsx HermannHEMATOLOGY 2018-07-20 22:52:006.8[facility] MqnyanxEKJMRTERGZ7328-14-56 22:52:0035.4[facility] CacauvzGJMTGIOUAA8877-62-57 22:52:0015.1[facility] DviblnfCAJUVCSJQD9997-45-49 22:52:0026.1[facility] MltycznSGLAIEQRGX7119-23-19 22:52:0081.4[facility] XTSMRUGZMY4181-40-41 22:52:00 Test Item Value Reference Range Interpretation Comments MCH (test code = MCH) 28.8 pg 27.0-31.0 [facility] EiirmycNQQGJGSQKB3881-36-09 22:52:005.4[facility]annHEMATOLOGY 2018-07-20 22:52:003.20[facility] KgyvbosJJHCHUSMTH2126-28-29 22:52:009.2[facility] MntzffoOOJWZTFBVD9436-99-19 22:52:0074.0[facility] IescqgaPHALKRMFCP1464-13-23 22:52:0015.5[facility] WzgqazcOHCHNZHEMP6686-73-23 22:52:006.7[facility] ITOQFGZLXK1873-90-06 22:52:002.8[facility] JrdisgsXIFUFXYQJT8080-72-95 22:52:001.0 [facility] MumlmuvDYEGOJAVTN1184-96-43 22:52:004.0[facility]annHEMATOLOGY 2018-07-20 22:52:000.1[facility] ZmsizxcUTWSOAHLII8449-68-04 22:52:000.2[facility] OkexdraBRAZEINUTT6482-45-44 22:52:000.8[facility] YcsoadfUGGTVRRRSS8337-21-45 22:52:000.4[facility]annURINE AND AJURT5967-11-67 15:20:00Small *ABN*(05/23/18 10:20 AM)[facility] SNSEP8346-85-40 15:20:00<1[facility]INE AND RTWYQ2602-33-22 15:20:009[facility] IXYHC8931-97-22 15:20:00Negative (05/23/18 10:20 AM)[facility] DTPVF7433-80-91 15:20:00Trace *ABN*(05/23/18 10:20 AM)[facility] AMLBL7672-42-30 15:20:00Negative *NA*(05/23/18 10:20 AM)[facility] EWGMD8269-19-89 15:20:00 Test Item Value Reference Range Interpretation Comments UA pH (test code = UA pH) 6.5 1 5.0-8.0 [facility] GDMAD4314-02-57 15:20:00 Test Item Value Reference Range Interpretation Comments UA Spec Grav (test code = UA Spec 1.008 1 Grav) [facility] BHRAE4199-73-13 15:20:00Slight *ABN*(05/23/18 10:20 AM) [facility] USVLE3978-73-01 15:20:00Yellow *NA*(05/23/18 10:20 AM) [facility] WQHS6695-02-93 15:20:889382.0[facility] CHEM 2018-05-23 15:20:00 Test Item Value Reference Range Interpretation Comments U Prot/Creat (test code = U 6.61 1 Prot/Creat) [facility] VBFK0284-90-07 15:20:0055.00[facility]UR[facility] CHEM 2018-05-23 15:20:24755.8[facility] AND VOFQU3921-86-76 15:20:00Small *ABN*(05/23/18 10:20 AM)[facility] ILHTP1151-07-95 15:20:00<1 [facility] QFRRS0298-08-95 15:20:009[facility] EYAEW9448-22-60 15:20:00Negative (05/23/18 10:20 AM)[facility] FXNRM2238-64-34 15:20:00Trace *ABN*(05/23/18 10:20 AM)[facility] LEVPA4293-41-59 15:20:00Negative *NA*(05/23/18 10:20 AM)[facility] MKVYO4021-02-68 15:20:00 Test Item Value Reference Range Interpretation Comments UA pH (test code = UA pH) 6.5 1 5.0-8.0 [facility] MMHPD3781-79-05 15:20:00 Test Item Value Reference Range Interpretation Comments UA Spec Grav (test code = UA Spec 1.008 1 Grav) [facility] PCADF8636-19-68 15:20:00Slight *ABN*(05/23/18 10:20 AM) [facility] RATSC9377-08-14 15:20:00Yellow *NA*(05/23/18 10:20 AM) [facility] RLWW1027-12-16 15:20:744133.0[facility] CHEM 2018-05-23 15:20:00 Test Item Value Reference Range Interpretation Comments U Prot/Creat (test code = U 6.61 1 Prot/Creat) [facility] VVDK2544-35-47 15:20:0055.00[facility] CHEM 2018-05-23 15:20:98580.8[facility] AND KJVQQ6737-44-57 15:20:00Small *ABN*(05/23/18 10:20 AM)[facility] REMID7671-78-16 15:20:00<1 [facility] GIKIP7565-88-99 15:20:009[facility] TQMYZ1427-47-37 15:20:00Negative (05/23/18 10:20 AM)[facility] VRTVK0160-10-72 15:20:00Trace *ABN*(05/23/18 10:20 AM)[facility] OWUJS7412-06-93 15:20:00Negative *NA*(05/23/18 10:20 AM)[facility] YCIBW0224-68-98 15:20:00 Test Item Value Reference Range Interpretation Comments UA pH (test code = UA pH) 6.5 1 5.0-8.0 [facility] XUGIV8643-59-64 15:20:00 Test Item Value Reference Range Interpretation Comments UA Spec Grav (test code = UA Spec 1.008 1 Grav) [facility] XWKGV7943-73-51 15:20:00Slight *ABN*(05/23/18 10:20 AM) [facility] ATEVU7547-89-18 15:20:00Yellow *NA*(05/23/18 10:20 AM) [facility] AUFH8063-75-41 15:20:501491.0[facility] CHEM 2018-05-23 15:20:00 Test Item Value Reference Range Interpretation Comments U Prot/Creat (test code = U 6.61 1 Prot/Creat) [facility] AQRG9277-61-76 15:20:0055.00[facility] CHEM 2018-05-23 15:20:04479.8[facility] HermannANEMIA RGIKX6741-35-67 14:55:0035 [facility]annANEMIA HBKAG9372-18-39 14:55:46976Qgpicnod HermannANEMIA STUDY 2018-05-23 14:55:67221Dvzqvkec HermannANEMIA MAVFG6755-93-91 14:55:0097[facility] HermannANEMIA APAAX4991-33-30 14:55:49238Fcqifmnb HermannCHEM VRYZY7442-35-98 14:55:008.0[facility] HermannCHEM IPLKM9521-00-85 14:55:002.5[facility]annCHEM MUWBT0225-52-42 14:55:0026.3[facility] HermannCHEM KQNLO8121-43-52 14:55:003.5 [facility]annCHEM XMHHG0603-43-69 14:55:007[facility]annCHEM PANEL 2018-05-23 14:55:0080[facility]annCHEM FKOQW2982-20-75 14:55:000.4[facility] HermannCHEM GCIIV9454-99-24 14:55:004.3[facility]annCHEM MYIQC9614-24-73 14:55:0022[facility]annCHEM HCPHZ1043-29-20 14:55:008.8[facility]annCHEM YWEBC7688-64-19 14:55:008.1[facility]annCHEM YUYQL4284-75-76 14:55:0012 [facility]annCHEM XHQYB9633-63-08 14:55:0026[facility]annCHEM PANEL 2018-05-23 14:55:0097[facility]annCHEM TPITZ2923-28-77 14:55:003.8[facility] HermannCHEM KZQWR7841-28-36 14:55:008.22[facility]annCHEM PMJIP6593-25-87 14:55:94316Okvcdedb HermannCHEM JUKQU7266-83-10 14:55:0059[facility]annCHEM BJDLP4172-08-16 14:55:0098[facility]annCHEM EATMT8460-45-01 14:55:003.8 [facility]annCHEM URSFL3001-55-81 14:55:00 Test Item Value Reference Range Interpretation Comments A/G Ratio (test code = A/G Ratio) 1.1 1 0.7-1.6 [facility]annCHEM HVUYK9879-67-50 14:55:0016.8[facility]annCHEM PANEL 2018-05-23 14:55:00 Test Item Value Reference Range Interpretation Comments B/C Ratio (test code = B/C Ratio) 7 1 6-25 [facility]annDRUG RETKXB3509-66-42 14:55:00Negative (05/23/18 9:55 AM)[facility]annDR[facility] LVOZGG9641-20-95 14:55:00Negative (05/23/18 9:55 AM)[facility] OQCWZI9488-99-56 14:55:00Positive *ABN*(05/23/18 9:55 AM)[facility] USNRWJ2727-76-78 14:55:00Negative (05/23/18 9:55 AM)[facility]annDR[facility] HRXSAQ6211-27-54 14:55:00Negative (05/23/18 9:55 AM)[facility]annDR[facility] SCREEN 2018-05-23 14:55:00See Note (05/23/18 9:55 AM)[facility]annDR[facility] SCREEN 2018-05-23 14:55:00Negative (05/23/18 9:55 AM)[facility]annDR[facility] SCREEN 2018-05-23 14:55:00Negative (05/23/18 9:55 AM)[facility]annDR[facility] SCREEN 2018-05-23 14:55:00Negative (05/23/18 9:55 AM)[facility]annDR[facility] SCREEN 2018-05-23 14:55:00Positive *ABN*(05/23/18 9:55 AM)[facility]annDR[facility] SCREEN 2018-05-23 14:55:00See Note 2(05/23/18 9:55 AM)[facility]annDR[facility] SCREEN 2018-05-23 14:55:00See Note 1(05/23/18 9:55 AM)[facility]annHEMATOLOGY 2018-05-23 14:55:000.3[facility] TllcqckZLLEWADWCK0185-89-22 14:55:000.1[facility] CdwxhbaKKVTNMYYOU4584-71-13 14:55:003.9[facility] RzukndgUCPZQSPMST4124-53-54 14:55:001.3[facility] MecwkukFOULSIPWRO7088-32-72 14:55:000.5[facility] ZQAQSAKWOE7915-21-77 14:55:000.9[facility] LaakfjfGZASOVERQC8725-41-84 14:55:007.7 [facility] NoxqihbZNINZZRLWX3971-59-23 14:55:004.3[facility] HermannHEMATOLOGY 2018-05-23 14:55:0022.0[facility] CucoegrGOKUXGXFAV4943-72-40 14:55:0065.1[facility] BemhwgqKAHTKSVWWC5734-02-75 14:55:00 Test Item Value Reference Range Interpretation Comments INR (test code = INR) 1.06 1 0.85-1.17 [facility] QuyunxzWGKCCDCIUE2411-70-94 14:55:00 Test Item Value Reference Range Interpretation Comments PT (test code = PT) 13.8 s 12.0-14.7 [facility] YddiyiqMEIHDLRTEP6192-32-86 14:55:00 Test Item Value Reference Range Interpretation Comments PTT (test code = PTT) 35.0 s 22.9-35.8 [facility] CpfraweDENZJIEFDL9189-09-45 14:55:0018.1[facility] HermannHEMATOLOGY 2018-05-23 14:55:008.0[facility] HdpkfmgWELYMHXTYQ9123-96-28 14:55:21049Rlsbnimc FofkyvsBZRKVHXYXZ8922-69-89 14:55:0033.3[facility] PfhvquyLDITOXJMGJ7395-75-62 14:55:004.54[facility] YbivwjcBOFTIOIPGJ9746-31-09 14:55:006.1[facility] IHMJPLHPYH8401-86-59 14:55:0080.9[facility] BnngysfLGRLJYLFFH2071-41-40 14:55:00 36.7[facility] KdmzborYVOZFHFBCE1275-55-16 14:55:00 Test Item Value Reference Range Interpretation Comments MCH (test code = MCH) 27.0 pg 27.0-31.0 [facility] FipdvlrHOIIUNZUDW8170-81-50 14:55:0012.2[facility] HermannIMMUNOLOGY 2018-05-23 14:55:00>8.0[facility] JdnfbwzWQTLLVZCCG9173-48-16 14:55:00<0.91 [facility] GxnaubdUPOVHFFDSK6777-95-53 14:55:00Non-Reactive *NA*(05/23/18 9:55 AM) [facility] OyotqyuRWOVCJSGIF2759-47-03 14:55:00Negative (05/23/18 9:55 AM)[facility] VngchmtUBAJMRSFBG9931-07-47 14:55:0018.2[facility] QgcczinMRMBUKFDRB3131-25-82 14:55:007.8[facility] DagjexqJBKRPWSGUN4873-98-45 14:55:009.5[facility] BYPWLJGLNW8100-69-91 14:55:0060.9[facility] CawufbgWPSSMPIIWD9323-65-87 14:55:00 3.6[facility] HppuhbjIWYOAXZPRX4838-83-78 14:55:001.47[facility] HermannIMMUNOLOGY 2018-05-23 14:55:008.1[facility] SxxfmchLRQHHUZFAG4024-49-32 14:55:000.77[facility] VqbjjwhVUIZZFKCBU1213-26-87 14:55:004.93[facility] FyubuepACLHNATQGJ4419-88-09 14:55:000.29[facility] LhtxpeqWQIFYVWHTY0910-71-77 14:55:000.63[facility] XGCJJONGFS3871-93-20 14:55:002.18[facility] ExvqpctUUITGTDEAY8171-84-12 14:55:00 89.85[facility] LeyywjbHTNJKEBTWL2841-33-37 14:55:27142.11[facility] JPGEVJUYWW8733-00-04 14:55:00>8.0[facility] VawfuvyQQVKVOOXNT3986-72-59 14:55:00<0.2[facility] NgjsztsFIJPVDLFEK9394-08-05 14:55:000.2[facility] ULVHRCHMGO4265-60-18 14:55:00Reactive *ABN*(05/23/18 9:55 AM)[facility] MVUVVHIBRG9317-53-16 14:55:00>8.0[facility] VtzukduUUBYWCSAVA5165-82-47 14:55:004.5[facility] OuckhqaSGHGAVCMTB5737-37-34 14:55:00Negative *NA*(05/23/18 9:55 AM)[facility] NsqrfouMLNMHZOYLH7853-59-54 14:55:00<0.2[facility] CLTVKWAWXU5366-30-73 14:55:00Negative *NA*(05/23/18 9:55 AM)[facility] HLZRKCNIFL8689-48-96 14:55:00Negative *NA*(05/23/18 9:55 AM)[facility] JLZJIRRPNI0050-90-68 14:55:00Negative *NA*(05/23/18 9:55 AM)[facility] AVWSOE9286-47-28 14:55:00 Test Item Value Reference Range Interpretation Comments VLDL (test code = VLDL) 30 1 [facility] XfxmjwjZLWEWZ0037-98-84 14:55:0074[facility] LtyfinwFCMWWM4549-23-41 14:55:44841Axuxubmk WsjchntFSMBLX2872-17-21 14:55:0072[facility] HermannLIPIDS 2018-05-23 14:55:90265Pckvmlaq EeczdjiMLGEWP2687-39-91 14:55:00 Test Item Value Reference Range Interpretation Comments CHD Risk (test code = CHD Risk) 2.44 1 4.00-7.30 [facility] HermannPARATHYROID VBILYUH4615-30-28 14:55:70692.0[facility] SPECIAL WXPWKSZZE4120-17-31 14:55:000.46[facility] HermannSPECIAL CHEMISTRY 2018-05-23 14:55:004.9[facility] HermannANEMIA GMBED1539-15-65 14:55:0035[facility] HermannANEMIA YYAOC3901-25-11 14:55:51729Hffpkwuj HermannANEMIA ZHZCK2036-92-06 14:55:76743Wcjxfquu HermannANEMIA ONSZG7263-50-73 14:55:0097[facility] ANEMIA UVCVB2180-29-07 14:55:74810Cnsebthx HermannCHEM LHJBM7298-53-61 14:55:00 8.0[facility] HermannCHEM JTZIH4228-58-37 14:55:002.5[facility] HermannCHEM PANEL 2018-05-23 14:55:0026.3[facility] HermannCHEM XAFJD7301-74-87 14:55:003.5[facility] HermannCHEM FHMLR2044-72-19 14:55:007[facility] HermannCHEM QRKFO4704-52-03 14:55:0080[facility] HermannCHEM OOQXM6564-18-49 14:55:000.4[facility] HermannCHEM QPQFA1869-64-65 14:55:004.3[facility] HermannCHEM BTDES6409-59-68 14:55:0022 [facility]annCHEM CPWXJ0626-53-08 14:55:008.8[facility] HermannCHEM PANEL 2018-05-23 14:55:008.1[facility] HermannCHEM OMPYC1988-82-33 14:55:0012[facility] HermannCHEM ENWJR8611-03-39 14:55:0026[facility] HermannCHEM GTXVQ8040-88-73 14:55:0097[facility]annCHE[facility] DPBSA8080-83-18 14:55:003.8[facility]annCHE[facility] UJYPN7925-38-93 14:55:008.22[facility]annCHE[facility] XIAIQ8332-88-98 14:55:74028 [facility]CHE[facility] GHLPN4022-61-54 14:55:0059[facility]annCHEM PANEL 2018-05-23 14:55:0098[facility]annCHE[facility] SZSEO2154-77-91 14:55:003.8[facility]annCHEM WRSHJ9545-73-50 14:55:00 Test Item Value Reference Range Interpretation Comments A/G Ratio (test code = A/G Ratio) 1.1 1 0.7-1.6 [facility] KDAAH5019-73-48 14:55:0016.8[facility]annCHEM PANEL 2018-05-23 14:55:00 Test Item Value Reference Range Interpretation Comments B/C Ratio (test code = B/C Ratio) 7 1 04-02 [facility]DR[facility] KAAFAU1382-24-58 14:55:00Negative (05/23/18 9:55 AM)[facility] GVIPEC4260-02-00 14:55:00Negative (05/23/18 9:55 AM)[facility] PJQNDY6440-34-10 14:55:00Positive *ABN*(05/23/18 9:55 AM)[facility] PMRFFN8388-82-64 14:55:00Negative (05/23/18 9:55 AM)[facility] CPRARZ2972-68-90 14:55:00Negative (05/23/18 9:55 AM)[facility] SCREEN 2018-05-23 14:55:00See Note (05/23/18 9:55 AM)[facility] S[facility] 2018-05-23 14:55:00Negative (05/23/18 9:55 AM)[facility] S[facility] 2018-05-23 14:55:00Negative (05/23/18 9:55 AM)[facility] S[facility] 2018-05-23 14:55:00Negative (05/23/18 9:55 AM)[facility] 2018-05-23 14:55:00Positive *ABN*(05/23/18 9:55 AM)[facility] 2018-05-23 14:55:00See Note 2(05/23/18 9:55 AM)[facility] SCREEN 2018-05-23 14:55:00See Note 1(05/23/18 9:55 AM)[facility]annHEMATOLOGY 2018-05-23 14:55:000.3[facility] RyxhajvBSHVBTNKPD2254-14-01 14:55:000.1[facility] GkxowjlGUMYFEDUWD6869-04-40 14:55:003.9[facility] EplhxmqZDVDHVLPBT4917-26-48 14:55:001.3[facility] YzpbfjsAGVBUYRDLW4200-80-12 14:55:000.5[facility] PNKTNVGAMX4557-72-81 14:55:000.9[facility] IhtoggxBIBIHMTHIL8536-28-34 14:55:007.7 [facility] OyabbmrQCWWQXITIY1878-73-65 14:55:004.3[facility]annHEMATOLOGY 2018-05-23 14:55:0022.0[facility] IujiyimNQNEUPLDFD7595-01-46 14:55:0065.1[facility] EjttvncVTROLHMVCB3777-25-77 14:55:00 Test Item Value Reference Range Interpretation Comments INR (test code = INR) 1.06 1 0.85-1.17 [facility] WbgnlkeBSDLAZCBRS7598-35-00 14:55:00 Test Item Value Reference Range Interpretation Comments PT (test code = PT) 13.8 s 12.0-14.7 [facility] MpgwilmDZSMANZBFZ7510-63-04 14:55:00 Test Item Value Reference Range Interpretation Comments PTT (test code = PTT) 35.0 s 22.9-35.8 [facility] GfgxwlqIRHTCPRAJR9496-35-28 14:55:0018.1[facility]annHEMATOLOGY 2018-05-23 14:55:008.0[facility] RwtzdacMMBCEPIYZB1990-13-25 14:55:53934Ldrynigd VkswiqpSLNGDYAXXC6225-16-28 14:55:0033.3[facility] WwdvykoGEFIXIWIYZ6559-27-19 14:55:004.54[facility] DsoqboxWVEEPEWCHE1608-44-08 14:55:006.1[facility] HIGUFMMNAC6123-46-00 14:55:0080.9[facility] IzdodutVBDRTSMYZI0718-20-86 14:55:00 36.7[facility] DdlubtuPQKZMPQMQV1904-99-85 14:55:00 Test Item Value Reference Range Interpretation Comments MCH (test code = MCH) 27.0 pg 27.0-31.0 [facility] GkgiwowWWERCDVLCQ2070-30-93 14:55:0012.2[facility] HermannIMMUNOLOGY 2018-05-23 14:55:00>8.0[facility] KtpkmyjYTWDDWVGVT5183-59-30 14:55:00<0.91 [facility] VnmlhuxRAZTIFMHOE2347-75-24 14:55:00Non-Reactive *NA*(05/23/18 9:55 AM) [facility] EqgdonqLXICOPYYST5428-52-97 14:55:00Negative (05/23/18 9:55 AM)[facility] YcgbqeoIESZPQBLIV9222-63-29 14:55:0018.2[facility] YkqvwpqXKWIRWJQQO8348-57-54 14:55:007.8[facility] CbxedkwKAHFPCYDIV9568-34-82 14:55:009.5[facility] RRTDRUIGJD7384-82-63 14:55:0060.9[facility] RmfrpxdSPPTNOFDCL6442-51-06 14:55:00 3.6[facility] LpqzbycGGGMWXLVOA3598-28-87 14:55:001.47[facility] HermannIMMUNOLOGY 2018-05-23 14:55:008.1[facility] WlgnergINKSNKSCJG2830-30-35 14:55:000.77[facility] QypovlvLJNOMSQXND7337-63-09 14:55:004.93[facility] VguscplPGJTVUVXXJ2349-71-08 14:55:000.29[facility] PauldxtXSADFMLUWY1546-71-31 14:55:000.63[facility] QHOZUEELFS7097-28-66 14:55:002.18[facility] BritcvsUTSWODYKGD7087-08-77 14:55:00 89.85[facility] CndmbzeOGQKLQDYJB1628-68-32 14:55:81343.11[facility] YPNPVNSPOV5115-93-32 14:55:00>8.0[facility] UsfejwrZHDBMNCVCJ8051-42-68 14:55:00<0.2[facility] BhbyzklBVONKALALS3494-33-50 14:55:000.2[facility] HKCWUQQHPK5323-40-36 14:55:00Reactive *ABN*(05/23/18 9:55 AM)[facility] VLOKOBXGPB6308-06-96 14:55:00>8.0[facility] AwmheymFXACTMLKHI8352-42-67 14:55:004.5[facility] YicyuinCXMMCZYONV4429-18-51 14:55:00Negative *NA*(05/23/18 9:55 AM)[facility] EobtrxkKATAFHKCDO0316-44-01 14:55:00<0.2[facility] YWDJBJWYEP6668-01-61 14:55:00Negative *NA*(05/23/18 9:55 AM)[facility] YYEGANVONU8032-99-95 14:55:00Negative *NA*(05/23/18 9:55 AM)[facility] LXAMNUPUGB2651-43-64 14:55:00Negative *NA*(05/23/18 9:55 AM)[facility] LHDGJQ9479-49-84 14:55:00 Test Item Value Reference Range Interpretation Comments VLDL (test code = VLDL) 30 1 [facility] TgdgwxhTEJSCP3783-83-14 14:55:0074[facility] KqsfsknWYIEAO6663-29-99 14:55:78171Vssnwfkl IhkfcbkQLRSYX2885-85-83 14:55:0072[facility] HermannLIPIDS 2018-05-23 14:55:29588Mlvpcmco HptveypWORMJS7964-80-90 14:55:00 Test Item Value Reference Range Interpretation Comments CHD Risk (test code = CHD Risk) 2.44 1 4.00-7.30 [facility]annPARATHYROID VCPLOKD0676-62-89 14:55:11977.0[facility] SPECIAL TJKFKPROQ1998-14-86 14:55:000.46[facility]annSPECIAL CHEMISTRY 2018-05-23 14:55:004.9[facility] HermannANEMIA VRAFA8033-68-30 14:55:0035[facility] HermannANEMIA DKEEP3255-28-21 14:55:61466Oqweebwf HermannANEMIA XCCHK7694-66-67 14:55:60602Wtrmdisf HermannANEMIA RYRIB0733-17-59 14:55:0097[facility] ANEMIA NGBVO8274-03-83 14:55:22012Iyncyymw HermannCHEM LFWCD8486-14-59 14:55:00 8.0[facility]CHEM PYTOS7126-44-80 14:55:002.5[facility]annCHEM PANEL 2018-05-23 14:55:0026.3[facility]annCHE[facility] LIKMP7683-30-51 14:55:003.5[facility]annCHE[facility] IXWVQ0153-40-79 14:55:007[facility]CHE[facility] UCBDV4576-87-34 14:55:0080[facility] DXSAE1432-51-57 14:55:000.4[facility]CHE[facility] WTJVE1490-54-33 14:55:004.3[facility]annCHE[facility] AAVLY2979-60-66 14:55:0022 [facility] SDHTF4151-45-66 14:55:008.8[facility]annCHEM PANEL 2018-05-23 14:55:008.1[facility]annCHE[facility] IZSAF1259-63-90 14:55:0012[facility]CHE[facility] XSGGU8410-60-49 14:55:0026[facility]CHE[facility] ZYTJV6763-47-38 14:55:0097[facility]annCHE[facility] BNWCE6093-00-97 14:55:003.8[facility]annCHE[facility] DYGGM7432-50-66 14:55:008.22[facility]CHE[facility] URUVS1399-13-67 14:55:05014 [facility] KXZYQ3002-82-41 14:55:0059[facility]annCHEM PANEL 2018-05-23 14:55:0098[facility]annCHE[facility] GEVFJ6864-94-07 14:55:003.8[facility]annCHE[facility] REWCM6675-64-59 14:55:00 Test Item Value Reference Range Interpretation Comments A/G Ratio (test code = A/G Ratio) 1.1 1 0.7-1.6 [facility] VMANQ0685-72-11 14:55:0016.8[facility]annCHEM PANEL 2018-05-23 14:55:00 Test Item Value Reference Range Interpretation Comments B/C Ratio (test code = B/C Ratio) 7 1 6-25 [facility] SVVHJI3729-92-04 14:55:00Negative (05/23/18 9:55 AM)[facility] URBXCN3976-19-74 14:55:00Negative (05/23/18 9:55 AM)[facility] BCEPKQ6451-30-84 14:55:00Positive *ABN*(05/23/18 9:55 AM)[facility] RXZWXZ4848-17-03 14:55:00Negative (05/23/18 9:55 AM)[facility] VWMUFK0542-17-43 14:55:00Negative (05/23/18 9:55 AM)[facility] SCREEN 2018-05-23 14:55:00See Note (05/23/18 9:55 AM)[facility] S[facility] 2018-05-23 14:55:00Negative (05/23/18 9:55 AM)[facility] 2018-05-23 14:55:00Negative (05/23/18 9:55 AM)[facility] 2018-05-23 14:55:00Negative (05/23/18 9:55 AM)[facility] 2018-05-23 14:55:00Positive *ABN*(05/23/18 9:55 AM)[facility] 2018-05-23 14:55:00See Note 2(05/23/18 9:55 AM)[facility] 2018-05-23 14:55:00See Note 1(05/23/18 9:55 AM)[facility]annHEMATOLOGY 2018-05-23 14:55:000.3[facility] KeqqfasLFZYUXUQTF1881-66-00 14:55:000.1[facility] LctsfljGMUGNBITOZ3900-82-50 14:55:003.9[facility] JrufyspWKEIXCZUWY2471-69-42 14:55:001.3[facility] NjbmblnGRUOVCVUQE3524-93-88 14:55:000.5[facility] IMCINSHYAP5701-13-49 14:55:000.9[facility] BrrlcdnVJEWYTVLGU1813-59-85 14:55:007.7 [facility] EdzgsinVTVCOQBFUE1039-77-70 14:55:004.3[facility]annHEMATOLOGY 2018-05-23 14:55:0022.0[facility] SnhwlziLGRROWBSJJ2977-27-37 14:55:0065.1[facility] WmvxayqHJLVTZRUGU9922-22-64 14:55:00 Test Item Value Reference Range Interpretation Comments INR (test code = INR) 1.06 1 0.85-1.17 [facility] VqevhxaWLSHNRXWPR1808-46-70 14:55:00 Test Item Value Reference Range Interpretation Comments PT (test code = PT) 13.8 s 12.0-14.7 [facility] AvloycyUHCGEENSGJ6575-64-58 14:55:00 Test Item Value Reference Range Interpretation Comments PTT (test code = PTT) 35.0 s 22.9-35.8 [facility] ZguzjonRROUSCDNKO7837-49-97 14:55:0018.1[facility]annHEMATOLOGY 2018-05-23 14:55:008.0[facility] IawbhjgSZMUNXINNZ5041-23-97 14:55:54952Chbkubtf YykkdrnVHLXIONNCM1775-00-21 14:55:0033.3[facility] KhnfivcPFEEMMSBXZ1796-21-32 14:55:004.54[facility] CykcyxuHUCXSRWWAM0210-41-06 14:55:006.1[facility] HWYTVBYMCQ8943-85-22 14:55:0080.9[facility] TvngtrhVYFKQRGDZL7791-02-18 14:55:00 36.7[facility] IkfwtidEJCSHNIHOX0632-30-47 14:55:00 Test Item Value Reference Range Interpretation Comments MCH (test code = MCH) 27.0 pg 27.0-31.0 [facility] MaotqqbCHOATEPDTY6417-25-60 14:55:0012.2[facility] HermannIMMUNOLOGY 2018-05-23 14:55:00>8.0[facility] ZrhzopsHEJBTTTZEF6878-33-90 14:55:00<0.91 [facility] VegnrblMTNTQLOJTA4839-85-78 14:55:00Non-Reactive *NA*(05/23/18 9:55 AM) [facility] IiwakchWBPCKTNIFP1525-95-69 14:55:00Negative (05/23/18 9:55 AM)[facility] OjrhmfvHGHQHQYUVF0557-21-63 14:55:0018.2[facility] MwssevwXQXOAWDTVT8303-12-54 14:55:007.8[facility] BaecqxbFGNPJKZVYP6351-98-79 14:55:009.5[facility] YSDONZCGQF9160-16-57 14:55:0060.9[facility] BlxydosZVOYJFIVZR8796-64-48 14:55:00 3.6[facility] IfbjeukITPRQNGMEU9316-83-31 14:55:001.47[facility] HermannIMMUNOLOGY 2018-05-23 14:55:008.1[facility] DxojupsMNBALNSTRC0806-88-10 14:55:000.77[facility] JcukckdTXVXXWPHNF9626-65-16 14:55:004.93[facility] LlbuekiSWDFAPMIXP5754-25-27 14:55:000.29[facility] AdzcrxxIXQXLTJFYS7190-07-38 14:55:000.63[facility] LNGVULBDBK7920-87-51 14:55:002.18[facility] BxmtsoiWAITSSSYRZ5838-66-40 14:55:00 89.85[facility] XrjllbaPJEERQAJLS6170-13-39 14:55:78271.11[facility] BKJNGAZZWS6138-09-49 14:55:00>8.0[facility] TrlaazkTFWQQHOZVO6390-95-62 14:55:00<0.2[facility] PbfrgmfZEIVOQTMTG3393-67-74 14:55:000.2[facility] LYFCYCQJKJ5054-48-72 14:55:00Reactive *ABN*(05/23/18 9:55 AM)[facility] BLQJGPNVLO9433-39-95 14:55:00>8.0[facility] TconkwrTQFICOBHDO4290-63-96 14:55:004.5[facility] KktjdxmBNMGWFDLQR7657-39-52 14:55:00Negative *NA*(05/23/18 9:55 AM)[facility] LxecpzqWZXLBMTJAP8969-33-26 14:55:00<0.2[facility] YYTWGVVITR1005-54-86 14:55:00Negative *NA*(05/23/18 9:55 AM)[facility] VMJGACZCPY5451-82-81 14:55:00Negative *NA*(05/23/18 9:55 AM)[facility] DWGEFCISXH2530-58-89 14:55:00Negative *NA*(05/23/18 9:55 AM)[facility] NMUBAO3802-95-40 14:55:00 Test Item Value Reference Range Interpretation Comments VLDL (test code = VLDL) 30 1 [facility] ZrmympdOPTOQL0461-82-58 14:55:0074[facility] MilgozoFLHXVU5954-14-71 14:55:88542Irmqsspy RwssdfmJXNRUP3868-41-27 14:55:0072[facility] HermannLIPIDS 2018-05-23 14:55:21089Unpedayd FcobiqyBRTUGL1397-58-29 14:55:00 Test Item Value Reference Range Interpretation Comments CHD Risk (test code = CHD Risk) 2.44 1 4.00-7.30 [facility]annPARATHYROID XGXCGMP4513-44-96 14:55:33012.0[facility] SPECIAL OERVKEGZA8352-01-18 14:55:000.46[facility]annSPECIAL CHEMISTRY 2018-05-23 14:55:004.9[facility]annCARDIAC UAEGQUB2187-92-20 12:03:000.04 [facility]annCARDIAC BNJIFNX1138-67-56 12:03:0026[facility]annCARDIAC WWZHGXU3312-03-54 12:03:000.04[facility]annCARDIAC YQKVWCG0713-65-93 12:03:00 26[facility]annCARDIAC EKKOWUH0311-77-91 12:03:000.04[facility]annCARDIAC XWFEMKA4471-31-40 12:03:0026[facility]annCARDIAC LMRUCNQ1415-13-57 07:54:00 0.02[facility]annCARDIAC EPRFDET4121-00-21 07:54:0031[facility]annCHEM DEQHJ3681-52-56 07:54:001.9[facility]annCHEM AAUJA3324-45-54 07:54:00 Test Item Value Reference Range Interpretation Comments B/C Ratio (test code = B/C Ratio) 6 1 6-25 [facility]CHE[facility] CZNNE0706-68-10 07:54:003.3[facility]annCHEM PANEL 2018-04-15 07:54:00 Test Item Value Reference Range Interpretation Comments A/G Ratio (test code = A/G Ratio) 0.9 1 0.7-1.6 [facility]CHE[facility] XKHGP3678-48-34 07:54:007.1[facility]annCHEM PANEL 2018-04-15 07:54:003.8[facility]annCHEM BXUWC2202-07-64 07:54:0018[facility]annCHE[facility] XQBKC4072-73-02 07:54:0014[facility]annCHE[facility] JXFJT5979-50-10 07:54:0082[facility]annCHEM CHFYY6063-22-97 07:54:000.5[facility]annCHEM LUOPU3758-59-68 07:54:0010[facility]annCHEM MDKMC2750-60-72 07:54:003.2 [facility]annCHE[facility] DARSY1392-31-71 07:54:75194Nqfhcoas HermannCHEM PANEL 2018-04-15 07:54:0095[facility]annCHEM ZHZJV1379-53-32 07:54:0034[facility]annCHEM NGTOR3208-79-76 07:54:005.83[facility]annCHEM LZCGK1060-13-53 07:54:74503Mvuoxuqe HermannCHEM QFKKC9838-56-25 07:54:0023[facility]annCHEM QFTZO3756-16-52 07:54:0015.2[facility]annCHE[facility] DIULT1383-17-25 07:54:008.5 [facility]CHE[facility] TDGLK7587-39-35 07:54:004.2[facility] HermannHEMATOLOGY 2018-04-15 07:54:001.5[facility] BnpovljROXIUECZSO6499-58-08 07:54:000.5[facility] FpgygjsCSSUMDKLHJ1448-68-85 07:54:001.0[facility] IkunjihIBVYJXCRKD8731-41-55 07:54:003.5[facility] DrlkmsgLVJRJLAQEU2916-57-75 07:54:000.1[facility] AFGEWQECOQ2840-07-85 07:54:000.2[facility] IrlasijUCANKUIJOE5719-27-44 07:54:00 26.7[facility] AbdyzqcJCUTSMVGJS0575-60-28 07:54:0061.0[facility] HermannHEMATOLOGY 2018-04-15 07:54:008.0[facility] SrtfpdjYQWNHYOAAW8563-59-84 07:54:003.3[facility] SjfyzmeVHVCNUCGUB6635-87-11 07:54:005.7[facility] PaxwyqwAJMRMNAITS3977-22-70 07:54:004.48[facility] HazgqarBHLNWVHDFX0874-42-01 07:54:0017.7[facility] WGRCVYPXPZ5193-12-19 07:54:06330Smbysvod AxhxpjfUQOGLSNQUF3603-70-07 07:54:007.2 [facility] EnkavzrSZYLNNBKWE8406-90-76 07:54:0011.6[facility] HermannHEMATOLOGY 2018-04-15 07:54:0035.5[facility] LofxlszXAVYDKOQHS7285-49-33 07:54:0032.6[facility] CygjxjnRAZHODJYMC0228-49-93 07:54:0079.2[facility] UgqocrvXOHFOMCPVO4746-89-08 07:54:00 Test Item Value Reference Range Interpretation Comments MCH (test code = MCH) 25.8 pg 27.0-31.0 [facility]annCARDIAC IRJVFLF2195-86-50 07:54:000.02[facility]annCARDIAC UXKAXQN1181-07-89 07:54:0031[facility]annCHEM JEWZD4138-96-73 07:54:001.9 [facility]annCHE[facility] OSOXO2670-16-89 07:54:00 Test Item Value Reference Range Interpretation Comments B/C Ratio (test code = B/C Ratio) 6 1 6-25 [facility]CHE[facility] CBVTY0604-54-39 07:54:003.3[facility]annCHEM PANEL 2018-04-15 07:54:00 Test Item Value Reference Range Interpretation Comments A/G Ratio (test code = A/G Ratio) 0.9 1 0.7-1.6 [facility]CHE[facility] EMOMG8590-67-81 07:54:007.1[facility]annCHEM PANEL 2018-04-15 07:54:003.8[facility]annCHEM EPZOV4477-49-60 07:54:0018[facility]annCHE[facility] NKDHB1475-18-32 07:54:0014[facility]annCHE[facility] VPSID3144-80-59 07:54:0082[facility]annCHEM LSREI2370-80-11 07:54:000.5[facility]annCHEM IDZJG1802-71-98 07:54:0010[facility]annCHE[facility] TLFWL7888-29-02 07:54:003.2 [facility]CHE[facility] XLNKZ3826-08-36 07:54:19284Qnwanggp HermannCHEM PANEL 2018-04-15 07:54:0095[facility]annCHEM YPEPF8743-59-93 07:54:0034[facility]annCHEM XNQMI8172-77-26 07:54:005.83[facility]annCHEM LRGMJ5819-21-32 07:54:39374Shoobejw HermannCHEM GAQQO6282-25-65 07:54:0023[facility]annCHEM BUCMF5572-53-49 07:54:0015.2[facility]annCHEM JUUAZ2463-44-93 07:54:008.5 [facility]CHE[facility] DGLHR3878-32-85 07:54:004.2[facility]annHEMATOLOGY 2018-04-15 07:54:001.5[facility] KftwygrRYZWRUWYSJ7355-64-37 07:54:000.5[facility] WwdpzshHTNHFIICMV1682-51-21 07:54:001.0[facility] QxlxjzjQSTZVZLLST5010-44-25 07:54:003.5[facility] ZcnhxvwTMEBLENONX1288-37-81 07:54:000.1[facility] DJZISMSVGE3226-37-44 07:54:000.2[facility] VqgsavqKQBUDFZREO8759-93-09 07:54:00 26.7[facility] BlcrhfeUUHFIPRTCO5584-02-86 07:54:0061.0[facility]annHEMATOLOGY 2018-04-15 07:54:008.0[facility] AqqliznCFPZREYASZ8974-85-27 07:54:003.3[facility] BvqjzxtBMTGEDVMVE7067-26-10 07:54:005.7[facility] BqaddeqGFUFWLYDID3841-43-82 07:54:004.48[facility] UtswylxYSTXPTVCXT0458-61-16 07:54:0017.7[facility] DVZOMVGFHN4449-01-40 07:54:06448Gzopfpsj CntrowfLZWEIICELO5327-81-65 07:54:007.2 [facility] TybkwydQMJPVLXGWM6656-79-14 07:54:0011.6[facility]annHEMATOLOGY 2018-04-15 07:54:0035.5[facility] AklduanKKVJCJNENW3813-86-65 07:54:0032.6[facility] XtjccvxFMSIOPGCSU6355-45-19 07:54:0079.2[facility] NehzxktMPHPKUOQNI7566-72-65 07:54:00 Test Item Value Reference Range Interpretation Comments MCH (test code = MCH) 25.8 pg 27.0-31.0 [facility]annCARDIAC SGUULZF8049-50-12 07:54:000.02[facility]annCARDIAC LRJCVEW4892-83-36 07:54:0031[facility]annCHEM BBZYX2317-51-53 07:54:001.9 [facility]CHE[facility] LUKXD9458-51-23 07:54:00 Test Item Value Reference Range Interpretation Comments B/C Ratio (test code = B/C Ratio) 6 1 6-25 [facility]CHE[facility] VWVZJ4665-36-91 07:54:003.3[facility]annCHEM PANEL 2018-04-15 07:54:00 Test Item Value Reference Range Interpretation Comments A/G Ratio (test code = A/G Ratio) 0.9 1 0.7-1.6 [facility]CHE[facility] KOFKI2787-06-70 07:54:007.1[facility]annCHEM PANEL 2018-04-15 07:54:003.8[facility]annCHEM QGBAN2168-07-33 07:54:0018[facility]annCHEM XZCIQ0697-03-59 07:54:0014[facility]annCHEM IVBWP3567-86-23 07:54:0082[facility]annCHEM MVJNJ2550-69-10 07:54:000.5[facility]annCHEM UZMSP6071-44-21 07:54:0010[facility]annCHEM PKCPK6609-31-39 07:54:003.2 [facility]CHE[facility] NXKKL0439-92-15 07:54:12187Lzjvzmym HermannCHEM PANEL 2018-04-15 07:54:0095[facility]annCHEM QAUNA2572-70-76 07:54:0034[facility]annCHEM TPPCT9457-24-47 07:54:005.83[facility]annCHEM EEWTL1497-26-23 07:54:26439Hydfyzre HermannCHEM NIQFS7503-52-54 07:54:0023[facility]annCHEM NWPHM9581-20-26 07:54:0015.2[facility]annCHE[facility] FTGGQ4240-16-51 07:54:008.5 [facility]annCHE[facility] MOUAR8202-31-50 07:54:004.2[facility]annHEMATOLOGY 2018-04-15 07:54:001.5[facility] RthwfbkSHIHCZWOXM1425-21-55 07:54:000.5[facility] YzbgnlcAIDBIUECAG3357-80-26 07:54:001.0[facility] KcxknukVEVVKIWUZK6649-80-18 07:54:003.5[facility] QyzbasyZRFZWAJNNS3398-96-04 07:54:000.1[facility] YXAVUDRMRB3487-22-31 07:54:000.2[facility] CxvmaihUOZLTCULON1232-75-96 07:54:00 26.7[facility] UegexgzXZSMUONVZU2037-29-22 07:54:0061.0[facility]annHEMATOLOGY 2018-04-15 07:54:008.0[facility] OlhfjxhRJIZXHSAFQ8231-45-28 07:54:003.3[facility] AmlxqfjDTIJNPWNNM3305-41-80 07:54:005.7[facility] JwfdshyEBXHWCYOTD8864-65-95 07:54:004.48[facility] GpapexuUGPOURGZPG1044-66-36 07:54:0017.7[facility] GIAFYAFHIG2947-94-83 07:54:54336Cdqwygbv LtinfrcDGGSWEYJJQ7821-99-82 07:54:007.2 [facility] EfrkolcUVYOURRLFD8475-44-00 07:54:0011.6[facility]annHEMATOLOGY 2018-04-15 07:54:0035.5[facility] UpuqpguVHKCSFWAVB6098-42-92 07:54:0032.6[facility] MxntmhqNEBCEICKOL2783-78-73 07:54:0079.2[facility] ZixzbugQHBOBZCZRE7778-24-16 07:54:00 Test Item Value Reference Range Interpretation Comments MCH (test code = MCH) 25.8 pg 27.0-31.0 [facility]annCARDIAC XYUVCVA2041-10-94 02:58:00<0.02[facility] CARDIAC IWWAAYF6477-77-06 02:58:00<0.02[facility]annCARDIAC ENZYMES 2018-04-15 02:58:00<0.02[facility]annCARDIAC ZGBXEHM3023-97-79 00:12:00 17474Inqavqbq HermannCARDIAC NWYFAEQ7146-37-38 00:12:0037[facility]annCARDIAC IBLEQHT0297-61-81 00:12:001.0[facility]annCARDIAC HSHWBCE3193-06-20 00:12:00 Test Item Value Reference Range Interpretation Comments CK MB Index (test 2.7 1 See_Comment [Automate d message] The code = CK MB Index) system w [facility] generated this result transmit emerson reference range : <=2.5. The reference range was not used to interpr et this result as erinn l/abnormal. [facility]annCHEM DIHXV2274-02-18 00:12:0012[facility]annCHEM PANEL 2018-04-15 00:12:0088[facility]annCHEM MKQAN6103-94-15 00:12:0014[facility]annCHEM SDEIM6550-24-79 00:12:007.4[facility]annCHEM LQTXD1105-10-36 00:12:000.5[facility]annCHEM PKFXE3552-62-76 00:12:0017[facility]annCHEM PKFSJ5092-13-91 00:12:003.2[facility]annCHEM KQBDF2218-07-30 00:12:008.1 [facility]annCHE[facility] TDNZC9052-72-06 00:12:12732Bfqhojwz HermannCHEM PANEL 2018-04-15 00:12:0026[facility]annCHEM CQKCZ4473-08-95 00:12:004.94[facility]annCHEM XJQOP5837-25-63 00:12:0024[facility]annCHEM UCUDO6459-70-92 00:12:66866Ghmbekfz HermannCHEM TOMYG7510-48-82 00:12:00 Test Item Value Reference Range Interpretation Comments B/C Ratio (test code = B/C Ratio) 5 1 6-25 [facility]annCHE[facility] MPWFJ9077-12-15 00:12:0012.3[facility]annCHEM PANEL 2018-04-15 00:12:00 Test Item Value Reference Range Interpretation Comments A/G Ratio (test code = A/G Ratio) 0.8 1 0.7-1.6 [facility]annCHE[facility] SPMGR0269-47-45 00:12:004.2[facility]annCHEM PANEL 2018-04-15 00:12:39100Cdjjyglv HermannCHEM KSUSX9851-56-48 00:12:003.3[facility] TwyfkjhCQPMUOXKDK5402-36-06 00:12:005.0[facility] VpyufjaXSALXQHWKO3007-42-40 00:12:0017.6[facility] LiaakmkBKHXVKVXRU4883-73-82 00:12:0033.5[facility] LFCHRDUUMW8244-75-78 00:12:007.3[facility] QjipfdbATLPIRZDBK3626-06-30 00:12:00 4.25[facility] BswkahpYVLJQIUZZA0533-35-10 00:12:00 Test Item Value Reference Range Interpretation Comments MCH (test code = MCH) 26.0 pg 27.0-31.0 [facility] FtosjiiGHBWFQWKZO9896-46-06 00:12:0077.5[facility] HermannHEMATOLOGY 2018-04-15 00:12:0033.0[facility] WffagkbOWMYYUHYVG6772-74-74 00:12:0011.1[facility] AnvpbstICQCNKAXMU8974-48-90 00:12:98078Ueuvnrif WmwzmhjJKNWNRHWJT6014-43-40 00:12:003.6[facility] FwgwmrrTMXJOLHMNJ3322-40-96 00:12:000.9[facility] GPANINCOQI9037-93-34 00:12:000.1[facility] DbmzjqeTFMPTKHAVB0754-67-77 00:12:000.1 [facility] XwaieqgIXLRKQPRHC6887-25-89 00:12:000.4[facility] HermannHEMATOLOGY 2018-04-15 00:12:001.0[facility] AgknrcxKZWMEWLEJZ0989-83-49 00:12:002.0[facility] NoapatvLHUTENPVGK5703-92-95 00:12:001+ *ABN*(04/14/18 7:12 PM)[facility] MLTKHECJCM8478-34-78 00:12:00Normal (04/14/18 7:12 PM)[facility]annHEMATOLOGY 2018-04-15 00:12:0017.2[facility] CohrjdqZLCPNQGKOJ2037-09-84 00:12:0072.3[facility] XdtflagBNJDQPKFBU8538-33-17 00:12:007.5[facility] HermannCARDIAC XXZSMTA4263-46-63 00:12:4116896Sxjgemkx HermannCARDIAC JCACBAC1764-90-45 00:12:0037[facility]annCARDIAC UTEAQJC5042-68-58 00:12:001.0[facility]annCARDIAC ENZYMES 2018-04-15 00:12:00 Test Item Value Reference Range Interpretation Comments CK MB Index (test 2.7 1 See_Comment [Automate d message] The code = CK MB Index) system w [facility] generated this result transmit emerson reference range : <=2.5. The reference range was not used to interpr et this result as erinn l/abnormal. [facility]annCHEM BJFXP5207-51-50 00:12:0012[facility]annCHEM PANEL 2018-04-15 00:12:0088[facility] HermannCHEM GOKFB0082-04-76 00:12:0014[facility] HermannCHEM DLREO1204-04-89 00:12:007.4[facility]annCHEM SCPFC7092-76-94 00:12:000.5[facility] HermannCHEM FTYXG0934-85-38 00:12:0017[facility]annCHEM DNSTK8775-23-27 00:12:003.2[facility]annCHEM QPIGX7280-43-45 00:12:008.1 [facility]annCHEM STKKF6910-61-82 00:12:11994Bsxernce HermannCHEM PANEL 2018-04-15 00:12:0026[facility] HermannCHEM MLIUL0800-96-99 00:12:004.94[facility] HermannCHEM MAIRC3422-35-08 00:12:0024[facility] HermannCHEM RTNFQ9133-60-48 00:12:16461Pvkukbox HermannCHEM LNYYM8521-68-31 00:12:00 Test Item Value Reference Range Interpretation Comments B/C Ratio (test code = B/C Ratio) 5 1 6-25 [facility]annCHEM NVFRN6221-57-65 00:12:0012.3[facility] HermannCHEM PANEL 2018-04-15 00:12:00 Test Item Value Reference Range Interpretation Comments A/G Ratio (test code = A/G Ratio) 0.8 1 0.7-1.6 [facility]annCHEM AAGPU8965-20-11 00:12:004.2[facility] HermannCHEM PANEL 2018-04-15 00:12:06676Ghjzikwb HermannCHEM UEFFF5980-57-69 00:12:003.3[facility] PgzjxuhMLTODHKNBS9129-26-48 00:12:005.0[facility] MewavkrOFVHCWPMIE0821-76-45 00:12:0017.6[facility] RcfywfeYYUPUAUIKL7828-74-81 00:12:0033.5[facility] TUBAWQCLAX8931-02-00 00:12:007.3[facility] YqkasnvGVDZHCIICR5056-07-40 00:12:00 4.25[facility] GhegdxqITDUHHNXPY9253-72-69 00:12:00 Test Item Value Reference Range Interpretation Comments MCH (test code = MCH) 26.0 pg 27.0-31.0 [facility] SwxsnxrLFXAHKONPE3349-99-89 00:12:0077.5[facility]annHEMATOLOGY 2018-04-15 00:12:0033.0[facility] GwzeaszXPQTHSVLXK8193-30-61 00:12:0011.1[facility] VrmgbzzOZTJCPXRMT3985-68-94 00:12:77027Faxxhhdo TriysbeVOOPSZKHBL5982-46-11 00:12:003.6[facility] BfspceqTDUMCCZTTD8953-09-12 00:12:000.9[facility] ONBMNNEOQT9577-52-65 00:12:000.1[facility] PbosrbdOYPMRPIPOC2551-53-40 00:12:000.1 [facility] UelctotCHRXNKHVQV2717-82-15 00:12:000.4[facility]annHEMATOLOGY 2018-04-15 00:12:001.0[facility] HcneywqFJCKLSAVOI6830-90-80 00:12:002.0[facility] GamlehpTVGDRPHYMJ9541-70-11 00:12:001+ *ABN*(04/14/18 7:12 PM)[facility] CWZIYBFOOO9812-82-24 00:12:00Normal (04/14/18 7:12 PM)[facility]annHEMATOLOGY 2018-04-15 00:12:0017.2[facility] UnllxpjITXMPSAUSY0106-60-50 00:12:0072.3[facility] OiaemysQVDIKYBLXK5261-68-38 00:12:007.5[facility]annCARDIAC TTTVEUB3826-97-22 00:12:2658010Bzklmwct HermannCARDIAC MKEBMWL6891-87-46 00:12:0037[facility]annCARDIAC UPURFQQ4633-77-08 00:12:001.0[facility]annCARDIAC ENZYMES 2018-04-15 00:12:00 Test Item Value Reference Range Interpretation Comments CK MB Index (test 2.7 1 See_Comment [Automate d message] The code = CK MB Index) system w [facility] generated this result transmit emerson reference range : <=2.5. The reference range was not used to interpr et this result as erinn l/abnormal. [facility]CHE[facility] KYSET9562-08-87 00:12:0012[facility]annCHEM PANEL 2018-04-15 00:12:0088[facility]annCHEM MJZNL5514-10-84 00:12:0014[facility]annCHEM HLAQA1909-44-09 00:12:007.4[facility]annCHEM VOVGR1880-50-73 00:12:000.5[facility]annCHEM RXUBD8780-85-48 00:12:0017[facility]annCHEM JSDHQ5349-44-05 00:12:003.2[facility]annCHEM IWJWU7328-06-72 00:12:008.1 [facility]annCHE[facility] AYBUL5273-76-78 00:12:60811Cjgxvzbd HermannCHEM PANEL 2018-04-15 00:12:0026[facility]annCHEM TGSOT9679-48-38 00:12:004.94[facility]annCHEM LYWGC4575-94-23 00:12:0024[facility]annCHEM DQNTW7851-80-18 00:12:56659Mbgxqcfc HermannCHEM BDOVC6320-33-55 00:12:00 Test Item Value Reference Range Interpretation Comments B/C Ratio (test code = B/C Ratio) 5 1 6-25 [facility]CHE[facility] KKPDT7735-66-07 00:12:0012.3[facility]annCHEM PANEL 2018-04-15 00:12:00 Test Item Value Reference Range Interpretation Comments A/G Ratio (test code = A/G Ratio) 0.8 1 0.7-1.6 [facility]CHE[facility] ZSJUK1499-24-17 00:12:004.2[facility]annCHEM PANEL 2018-04-15 00:12:18494Voavgxdc HermannCHEM DTEMO4842-24-54 00:12:003.3[facility] HphbufjLRBUWBOOFK1720-02-68 00:12:005.0[facility] QpyxrubXXJFCLZXAQ1713-51-47 00:12:0017.6[facility] HfiylanUQFYKTCJPK4897-55-09 00:12:0033.5[facility] MTZPPENYZB4231-76-67 00:12:007.3[facility] BdohgyxKHDTWXNXNH2443-22-48 00:12:00 4.25[facility] SzwoubaVUOZJUBXAK8582-24-15 00:12:00 Test Item Value Reference Range Interpretation Comments MCH (test code = MCH) 26.0 pg 27.0-31.0 [facility] AtemrwsGEVHRFTDLY1352-49-31 00:12:0077.5[facility]annHEMATOLOGY 2018-04-15 00:12:0033.0[facility] NlghllsWQAFKCZLRH6868-94-19 00:12:0011.1[facility] IamcfjvYNEHWTQWTH5737-62-65 00:12:71319Ruwdebal GmuozsbBZOOKKCNHK8813-40-20 00:12:003.6[facility] NjsgyoySCNDUFVGOV1551-49-15 00:12:000.9[facility] BXFXVMMSSH9006-97-60 00:12:000.1[facility] QnzsvqwGTXLRRFHLI8079-51-96 00:12:000.1 [facility] WqiiuieYQBLJMXANO6408-72-82 00:12:000.4[facility]annHEMATOLOGY 2018-04-15 00:12:001.0[facility] IdwppmiURKYRGIQCL0102-31-08 00:12:002.0[facility] JbgzrgfJJRODNIGQK9106-51-37 00:12:001+ *ABN*(04/14/18 7:12 PM)[facility] GOUTOUBBJI6381-83-47 00:12:00Normal (04/14/18 7:12 PM)[facility]annHEMATOLOGY 2018-04-15 00:12:0017.2[facility] CigoyxvRLHAVCLSEQ3277-94-86 00:12:0072.3[facility] RehragtXFYONHRKUU8159-46-05 00:12:007.5[facility] PcozvrpCRNSPTJQTT8390-13-31 12:10:0017.4[facility] KkhiiybUZBGLLXWEZ8367-48-31 12:10:0017.4[facility] BTSJIAPDEP7431-61-48 12:10:0017.4[facility]annCHEM BKQQZ1380-02-21 08:01:00 2.1[facility]annCHEM PYKTY5481-79-08 08:01:005.6[facility] HermannELECTROLYTES 2018-03-19 08:01:0017.3[facility] CbtqcktGQMLCUSGACHF2076-31-28 08:01:005[facility] QmzhrciDGMTACCACTLW8943-53-72 08:01:0094[facility] GeqmvmvPVINOSOIRGQO1774-62-44 08:01:0024[facility] JmesqjeWDJDWDFHIYHI6898-49-47 08:01:008.3[facility] ZUKUKZKLJDBL4490-02-81 08:01:20168Zxvgcauf UkzbtyqIXTTHCNSRUAV4696-32-01 08:01:004.3[facility] ObbycbdTLJPTKJTYKPR4252-20-75 08:01:25377Gboznqre Kihei MANMXGJNAZFP3389-52-18 08:01:0055[facility] ClmvxcxZPXBXUGRORXS9546-18-53 08:01:00 9.62[facility] QyroidsALIJEJVYNO4768-80-20 08:01:000.3[facility]annHEMATOLOGY 2018-03-19 08:01:0010.9[facility] YowougsZPAHWFUPEC2252-48-25 08:01:0078.7[facility] BawaauuXOBPXMKGTW9577-80-72 08:01:008.8[facility] LyuuwimSTMQFSBTIR7113-57-15 08:01:000.1[facility] ItdegngBGVECHGNCG5261-94-81 08:01:000.9[facility] ZICBHKLBHL6223-91-32 08:01:001.3[facility] BjtofwfVLVZKYBGZL7046-91-21 08:01:001+ *ABN*(03/19/18 3:01 AM)[facility] LbmjmxbSPHAPUOFXG2409-97-22 08:01:006.5[facility] NwhkefkJHQBZVYWSM5887-01-88 08:01:000.7[facility] QoczfrpJLZCOWOOTU5840-60-38 08:01:007.9[facility] AaciqnbOIUYSTDCBS9505-33-65 08:01:20066Vpwaakyb Kihei LESVHRVSZU9296-61-04 08:01:00 Test Item Value Reference Range Interpretation Comments MCH (test code = MCH) 26.4 pg 27.0-31.0 [facility] JbtwwviAZELIBQTFK7233-99-12 08:01:0015.4[facility]annHEMATOLOGY 2018-03-19 08:01:0034.2[facility] EytisrtDYGUIBGNFN5722-20-87 08:01:002.99[facility] WkntodgVMTGPWJVFQ7954-35-14 08:01:008.2[facility] FfpklfjSTCSVTHGDX6322-64-45 08:01:0023.1[facility] PfdpujdDJJQHAAWLD1300-43-10 08:01:007.9[facility] ZTBCPBICWA8928-33-53 08:01:0077.1[facility]annCHEM NKRNR5271-56-41 08:01:00 2.1[facility]annCHEM NPDUQ4766-87-19 08:01:005.6[facility] HermannELECTROLYTES 2018-03-19 08:01:0017.3[facility] SszzffvNMXCQVBFKCCG8530-71-32 08:01:005[facility] FriowifSUTLOLXPRSVI7405-59-49 08:01:0094[facility] MusvtifJIUCQSNTGLEG7581-73-19 08:01:0024[facility] OxlgsejZIXZWYRDQABY4288-36-50 08:01:008.3[facility] XWZBJDOGURLC4810-63-24 08:01:45513Jmetohuo MohhkszLGOJXUWQKKOC9921-12-03 08:01:004.3[facility] FrijmtzOGLIHNYIXTIW1027-02-08 08:01:13078Lacgbcuj Kihei CZIPUDZRHDCL7088-74-09 08:01:0055[facility] FxhjcscRFJGMORIUOFU6637-42-55 08:01:00 9.62[facility] JgkhrjdXCIXNTWXHN3673-24-19 08:01:000.3[facility] HermannHEMATOLOGY 2018-03-19 08:01:0010.9[facility] TjpregtFLSWZVOMWN8015-91-55 08:01:0078.7[facility] NdtrjkeRKCCHWVVGB2446-08-94 08:01:008.8[facility] MypepjtHZKHRLUYUW5433-14-30 08:01:000.1[facility] UlkyjxhRDGTFJLZGB0443-13-84 08:01:000.9[facility] IIRGDWSBST1874-41-23 08:01:001.3[facility] LubmpyiJGDDRGDIFZ5925-59-35 08:01:001+ *ABN*(03/19/18 3:01 AM)[facility] JvkwvdnUDGAHQZCNG2809-94-01 08:01:006.5[facility] ElqaahiRXUXBQBVOQ3795-18-84 08:01:000.7[facility] LigtqooZQEYEQHFMF2875-41-12 08:01:007.9[facility] QejvahaBLAWMPLCJC3701-16-35 08:01:96567Tfyxxdsb Kihei ETNEIJYSRR8643-39-84 08:01:00 Test Item Value Reference Range Interpretation Comments MCH (test code = MCH) 26.4 pg 27.0-31.0 [facility] QnsquatHIJXWEOUQN4788-00-58 08:01:0015.4[facility] HermannHEMATOLOGY 2018-03-19 08:01:0034.2[facility] AgldhbyYBQRDMEXAA9720-63-67 08:01:002.99[facility] NyylhedVWWISCKKSY5999-79-27 08:01:008.2[facility] OrvqttlWOVYKZROWP1292-15-28 08:01:0023.1[facility] WmexohwYTNSQTPEVE4167-08-48 08:01:007.9[facility] PPQOWSZHSI7906-65-71 08:01:0077.1[facility] HermannCHEM GBUMX4510-93-29 08:01:00 2.1[facility] HermannCHEM ZPQNZ5327-90-52 08:01:005.6[facility] HermannELECTROLYTES 2018-03-19 08:01:0017.3[facility] NuhzgpyNJMWVOSDDYOV5982-32-54 08:01:005[facility] ZdogdrfJZVSDJSMTKNW1016-15-17 08:01:0094[facility] SlfjbmoIWPHHWCCFCLS2247-54-32 08:01:0024[facility] FnfpxzbLQJXHNYWURHY3168-19-07 08:01:008.3[facility] DWBLFWFYBWQF1670-48-93 08:01:25858Jxkwktda PkfefndDQSIIIINMSRL6964-90-47 08:01:004.3[facility] ScvgrwmNJTZAWSSOUWO2370-01-90 08:01:80461Tdzrfkcw Marlo FDWITVYKSPTQ4070-04-37 08:01:0055[facility] DvtafprRWFDBRVBAIQN7003-66-76 08:01:00 9.62[facility] DfqueykDOVWDEMHQE6314-46-35 08:01:000.3[facility] HermannHEMATOLOGY 2018-03-19 08:01:0010.9[facility] JflsghtOGCWNNOCIR2500-00-11 08:01:0078.7[facility] DudpiqxPNAGZYMTBK4913-88-40 08:01:008.8[facility] IzzefncKNAGGBWICP3170-91-08 08:01:000.1[facility] OaxurroIEHXOTSXEF9471-92-44 08:01:000.9[facility] NGOFDENXQZ2849-03-53 08:01:001.3[facility] OkrdunkJVRSTXDTWT1268-31-82 08:01:001+ *ABN*(03/19/18 3:01 AM)[facility] ObmirdnRXMDFRORDG8632-40-11 08:01:006.5[facility] OewxahyDNJSQMPEKF3619-27-51 08:01:000.7[facility] CmfvmqwGWOLLBXPPZ6183-44-92 08:01:007.9[facility] CrpqkxtDIFCDHEBGT2043-41-17 08:01:40037Yctktamz Marlo UMCKOIJFZR3897-68-06 08:01:00 Test Item Value Reference Range Interpretation Comments MCH (test code = MCH) 26.4 pg 27.0-31.0 [facility] AnlayepXSHFAGEXIW7478-60-64 08:01:0015.4[facility] HermannHEMATOLOGY 2018-03-19 08:01:0034.2[facility] JuxflqhGXOOOORCYM9166-79-39 08:01:002.99[facility] GldomylESSBPGCRCR2501-65-31 08:01:008.2[facility] UfowalhRGFJARJCQI0270-73-46 08:01:0023.1[facility] LskhhwcERGHBUTFXK0436-36-06 08:01:007.9[facility] IDOZYJTTBH2968-92-26 08:01:0077.1[facility] HermannCHEM WVOZR7670-63-54 08:29:00 2.3[facility] HermannCHEM IESGJ9285-93-53 08:29:006[facility] HermannCHEM PANEL 2018-03-18 08:29:000.4[facility] HermannCHEM XZSOR6641-50-16 08:29:004.0[facility] HermannCHEM EVTEP6386-17-91 08:29:19835Udqgsmko HermannCHEM EZOES1493-30-00 08:29:0050[facility] HermannCHEM TGURU3442-72-85 08:29:37654Bvprgbrl HermannCHEM EJYGW1587-40-72 08:29:008.40[facility] HermannCHEM QYUNZ3688-53-03 08:29:0097 [facility] HermannCHEM GNRQT8655-48-90 08:29:25115Bftsmvya HermannCHEM PANEL 2018-03-18 08:29:002.7[facility] HermannCHEM XIFEZ3117-26-01 08:29:006.9[facility] HermannCHEM TNBHL9889-88-90 08:29:008.0[facility] HermannCHEM YJWYL4824-05-13 08:29:0026[facility] HermannCHEM XWKPQ5871-48-24 08:29:009[facility] HermannCHEM TNRWI6845-66-98 08:29:0012[facility] HermannCHEM UNAHI9199-00-70 08:29:00 Test Item Value Reference Range Interpretation Comments B/C Ratio (test code = B/C Ratio) 6 1 6-25 [facility] HermannCHEM AYDAN9027-04-48 08:29:0014.0[facility] HermannCHEM PANEL 2018-03-18 08:29:004.2[facility] HermannCHEM SQYQS0190-10-29 08:29:00 Test Item Value Reference Range Interpretation Comments A/G Ratio (test code = A/G Ratio) 0.6 1 0.7-1.6 [facility] HermannCHEM GOWBG1768-52-15 08:29:005.7[facility] HermannHEMATOLOGY 2018-03-18 08:29:00 Test Item Value Reference Range Interpretation Comments INR (test code = INR) 1.23 1 0.85-1.17 [facility] QbozuzcARCFRJCQEO2182-75-56 08:29:00 Test Item Value Reference Range Interpretation Comments PTT (test code = PTT) 42.0 s 22.9-35.8 [facility] AhnznrvJCRMRXCQWI0702-18-71 08:29:00 Test Item Value Reference Range Interpretation Comments PT (test code = PT) 15.6 s 12.0-14.7 [facility] MhmelgdPROPMPQXQN5025-81-28 08:29:001+ *ABN*(03/18/18 3:29 AM)[facility]wallJqpkkdmJKJHLPWVTS7491-46-16 08:29:001.0[facility] McgtjfwUSRNIPTOPX2851-62-77 08:29:000.1[facility] FdnuodjLGQIEREYRC4586-62-71 08:29:000.9[facility] ZMXQTQPPOM4542-67-66 08:29:005.0[facility] MihsfxeIRFVJIVQJA2497-50-11 08:29:001.6 [facility] GvfbgydTEIGALCPKS2823-01-05 08:29:0013.3[facility] HermannHEMATOLOGY 2018-03-18 08:29:000.5[facility] GdeqruyVSWIEHIVUP3555-82-82 08:29:0013.9[facility] KrpwxahDZCHINMPKG9550-23-54 08:29:0070.7[facility] ZzxfkfuRQZHKNYCTX2466-10-66 08:29:75365Gdlhjupa YohabjtZWYUGZSAGH0109-07-54 08:29:007.9[facility] XIMLHIWPRZ1789-73-60 08:29:0033.8[facility] AtllisoGITTWXGCGE6179-17-43 08:29:00 15.0[facility] BfvfkkzULREXGQKOE7453-71-28 08:29:0021.8[facility] HermannHEMATOLOGY 2018-03-18 08:29:0077.9[facility] UggajxtFCCBXEIQSY2937-48-10 08:29:00 Test Item Value Reference Range Interpretation Comments MCH (test code = MCH) 26.3 pg 27.0-31.0 [facility] IunekscMTHWUBKZUN4373-37-66 08:29:002.80[facility] HermannHEMATOLOGY 2018-03-18 08:29:007.4[facility] QveyvqnWDNEEOXBIA2493-47-38 08:29:007.1[facility] HermannCHEM ZXZON5636-56-68 08:29:002.3[facility] HermannCHEM REOSM5591-29-43 08:29:006[facility] HermannCHEM DPFJX7344-99-88 08:29:000.4[facility] HermannCHEM GAKME6923-18-38 08:29:004.0[facility] HermannCHEM NGAAG8056-68-91 08:29:12287 [facility] HermannCHEM NZQHU0118-77-11 08:29:0050[facility] HermannCHEM PANEL 2018-03-18 08:29:81173Llokowdt HermannCHEM ENTMQ0773-91-43 08:29:008.40[facility] HermannCHEM DCEBK2713-20-23 08:29:0097[facility] HermannCHEM DOPDK6655-37-86 08:29:41803Keirgwmf HermannCHEM VGODI2541-14-12 08:29:002.7[facility] HermannCHEM LVHWH3945-14-45 08:29:006.9[facility] HermannCHEM KOREA6790-09-20 08:29:008.0 [facility] HermannCHEM KDDVB5709-63-00 08:29:0026[facility] HermannCHEM PANEL 2018-03-18 08:29:009[facility] HermannCHEM IGKHL7253-85-37 08:29:0012[facility] HermannCHEM FHAZZ2596-90-39 08:29:00 Test Item Value Reference Range Interpretation Comments B/C Ratio (test code = B/C Ratio) 6 1 6-25 [facility]CHE[facility] PACHL5474-64-01 08:29:0014.0[facility] HermannCHEM PANEL 2018-03-18 08:29:004.2[facility] HermannCHEM KDNQB0189-91-86 08:29:00 Test Item Value Reference Range Interpretation Comments A/G Ratio (test code = A/G Ratio) 0.6 1 0.7-1.6 [facility]CHE[facility] MTLDE4612-60-76 08:29:005.7[facility] HermannHEMATOLOGY 2018-03-18 08:29:00 Test Item Value Reference Range Interpretation Comments INR (test code = INR) 1.23 1 0.85-1.17 [facility]wallRvkccwqWGDOXEGGLB2819-38-22 08:29:00 Test Item Value Reference Range Interpretation Comments PTT (test code = PTT) 42.0 s 22.9-35.8 [facility]wallPwkulqgFHGETOHONB4958-56-82 08:29:00 Test Item Value Reference Range Interpretation Comments PT (test code = PT) 15.6 s 12.0-14.7 [facility]RzixtgzLWCDRUXGUK1676-45-59 08:29:001+ *ABN*(03/18/18 3:29 AM)[facility] CenterNmxogoiULUNMYCWJT6168-68-13 08:29:001[address]0[facility] HospitalNfcwlszYJYMGCHYQJ8469-73-88 08:29:000.1[facility] HhyoymiTPCLXCGPAJ0237-60-32 08:29:000.9[facility] SJHHRHQZAJ7024-07-99 08:29:005.0[facility] WhvsjzfNGRNWKFRGX2404-55-41 08:29:001.6 [facility] NfvzwwfZAJNJSWSPR1113-38-23 08:29:0013.3[facility] HermannHEMATOLOGY 2018-03-18 08:29:000.5[facility] RvkslrhNLVFBPKGOW4953-68-91 08:29:0013.9[facility] NletihiEBXKUIGGAY0160-95-21 08:29:0070.7[facility] TbrrehbTTPBZCJHFT3901-00-01 08:29:68669Tmfknbjx KxdvlmxLFFCMGGNAB7505-66-01 08:29:007.9[facility] BPYOKHBBQU7341-86-16 08:29:0033.8[facility] OfmeswvBIWWJTFPKI0633-88-49 08:29:00 15.0[facility] NfmcomgEZWIEYGTVT0320-45-75 08:29:0021.8[facility] HermannHEMATOLOGY 2018-03-18 08:29:0077.9[facility] NmddmgzAXLDCZZTDO0252-14-64 08:29:00 Test Item Value Reference Range Interpretation Comments MCH (test code = MCH) 26.3 pg 27.0-31.0 [facility] NqbqptsAPTMHJYWRY2155-57-11 08:29:002.80[facility] HermannHEMATOLOGY 2018-03-18 08:29:007.4[facility] PxokwqjJCNEECJBTM2884-80-15 08:29:007.1[facility] HermannCHEM ZBYVB8676-95-58 08:29:002.3[facility] HermannCHEM ADDHO0059-31-50 08:29:006[facility] HermannCHEM AOOBI0256-09-60 08:29:000.4[facility] HermannCHEM MBBLB9770-36-93 08:29:004.0[facility] HermannCHEM QMBAY3785-98-85 08:29:27067 [facility]annCHEM LGJQX0916-14-11 08:29:0050[facility] HermannCHEM PANEL 2018-03-18 08:29:03706Tjikjdfz HermannCHEM KMXFV4389-57-64 08:29:008.40[facility] HermannCHEM ZMPGN5938-42-29 08:29:0097[facility] HermannCHEM DXURS1802-69-42 08:29:45978Thsgtxrg HermannCHEM FAMPS7468-02-54 08:29:002.7[facility] HermannCHEM GJVIU6327-39-44 08:29:006.9[facility] HermannCHEM RTZIT7006-73-56 08:29:008.0 [facility] HermannCHEM CRNAF5079-10-11 08:29:0026[facility] HermannCHEM PANEL 2018-03-18 08:29:009[facility] HermannCHEM QYMSC5235-21-03 08:29:0012[facility] HermannCHEM ZCEMG2476-27-26 08:29:00 Test Item Value Reference Range Interpretation Comments B/C Ratio (test code = B/C Ratio) 6 1 6-25 [facility]CHE[facility] TRQFO5354-41-89 08:29:0014.0[facility] HermannCHEM PANEL 2018-03-18 08:29:004.2[facility] HermannCHEM WYSIC4263-22-50 08:29:00 Test Item Value Reference Range Interpretation Comments A/G Ratio (test code = A/G Ratio) 0.6 1 0.7-1.6 [facility]CHE[facility] KCHCE8131-24-21 08:29:005.7[facility] KiheiHEMATOLOGY 2018-03-18 08:29:00 Test Item Value Reference Range Interpretation Comments INR (test code = INR) 1.23 1 0.85-1.17 [facility] CenterWweylijUQLUVEZBFJ7106-77-32 08:29:00 Test Item Value Reference Range Interpretation Comments PTT (test code = PTT) 42.0 s 22.9-35.8 [facility] CenterJylpnesMDGAMDLMFR6390-58-74 08:29:00 Test Item Value Reference Range Interpretation Comments PT (test code = PT) 15.6 s 12.0-14.7 [facility] CenterUqqykbfPYSTHLDQBH4706-70-38 08:29:001+ *ABN*(03/18/18 3:29 AM)[facility] EczavvmGXDUYDZILS1401-46-89 08:29:001.0[facility] JxjgriyWUXUJQNAAX4667-36-95 08:29:000.1[facility] IprgpcmNFFQVCZEZS9259-87-97 08:29:000.9[facility] OCTOHJBDJU9432-24-53 08:29:005.0[facility] LfvhfygWRNSJNUKQX3259-99-42 08:29:001.6 [facility] CgzmrmyOOBKPSDKRJ1529-21-54 08:29:0013.3[facility] HermannHEMATOLOGY 2018-03-18 08:29:000.5[facility] OtcqexmKBMJHGNTVV3197-39-27 08:29:0013.9[facility] JjonrztCPDAOHODSG6865-69-96 08:29:0070.7[facility] TyqbepyCUHLHWGVVY3687-89-74 08:29:97656Kdkrxblq BjlkbquMAVRIXTFBJ7779-33-26 08:29:007.9[facility] FYFOTATIJW6082-70-08 08:29:0033.8[facility] ZvcmgpePEIIHELOSD0577-80-02 08:29:00 15.0[facility] CmomziaEOCXXYDHQZ4885-61-92 08:29:0021.8[facility] HermannHEMATOLOGY 2018-03-18 08:29:0077.9[facility] YhyhqyxPSXBECTMKI1056-99-60 08:29:00 Test Item Value Reference Range Interpretation Comments MCH (test code = MCH) 26.3 pg 27.0-31.0 [facility] CpagfegXIQXDXVLJE8500-20-16 08:29:002.80[facility] HermannHEMATOLOGY 2018-03-18 08:29:007.4[facility] VgtogfsHKVGPJLGVS6379-84-36 08:29:007.1[facility] CkjmfnlULBIQYIOYZ4460-28-05 21:57:0018.3[facility] IapgqvmKXWMGDNDPB8092-66-41 21:57:0018.3[facility] IluwcaxNBNRBDARXB8553-51-44 21:57:0018.3[facility] CHEM IAQLB5719-47-82 13:00:000.3[facility] BwfcbxvFIGRWDBLVG2260-85-54 13:00:00 Negative *NA*(03/17/18 8:00 AM)[facility] HermannCHEM NFPVZ3898-95-69 13:00:000.3 [facility] SkkquqaBQSSHOQVPU8453-46-05 13:00:00Negative *NA*(03/17/18 8:00 AM) [facility]annCHEM WXSDT9300-22-11 13:00:000.3[facility] HermannIMMUNOLOGY 2018-03-17 13:00:00Negative *NA*(03/17/18 8:00 AM)[facility] HermannCHEM PANEL 2018-03-17 11:05:000.3[facility] HermannCHEM FFPML5356-35-67 11:05:000.3[facility] HermannCHEM NWNDB0187-11-50 11:05:000.3[facility] HermannCARDIAC AJISBED5099-87-76 08:09:00 Test Item Value Reference Range Interpretation Comments CK MB Index (test 1.2 1 See_Comment [Automate d message] The code = CK MB Index) system w [facility] generated this result transmit emerson reference range : <=2.5. The reference range was not used to interpr et this result as erinn l/abnormal. [facility] HermannCARDIAC OJMRRVO5124-87-46 08:09:74879Lnogueqa HermannCARDIAC EUIFDCW9526-70-94 08:09:9796811Jbjonxnr HermannCARDIAC PCDQNXL6681-11-91 08:09:001.5[facility] HermannCARDIAC LXVQVQV0876-86-54 08:09:00<0.02[facility] HermannCHEM AAEVP4804-83-43 08:09:0033.0[facility] HermannCHEM NWMHW3852-66-15 08:09:004[facility] HermannCHEM UNHAN0754-99-63 08:09:0089[facility] HermannCHEM HYMBZ9019-52-51 08:09:0093[facility] HermannCHEM VHLHN6009-72-16 08:09:004.1 [facility]annCHEM HXHXT9438-62-28 08:09:00 Test Item Value Reference Range Interpretation Comments A/G Ratio (test code = A/G Ratio) 0.7 1 0.7-1.6 [facility] HermannCHEM VJVFO0546-05-31 08:09:00 Test Item Value Reference Range Interpretation Comments B/C Ratio (test code = B/C Ratio) 7 1 6-25 [facility] HermannCHEM ESBUZ3808-11-29 08:09:0020.4[facility] HermannCHEM PANEL 2018-03-17 08:09:000.4[facility] HermannCHEM MUWHF4274-61-21 08:09:0011[facility] HermannCHEM BSVSD7421-89-82 08:09:0010[facility] HermannCHEM EXXIG1061-42-89 08:09:002.7[facility] HermannCHEM PACAV8356-56-62 08:09:0021[facility] HermannCHEM QSVJJ4688-86-97 08:09:006.8[facility] HermannCHEM UDMCM9897-28-01 08:09:007.5 [facility] HermannCHEM XFUDK1462-79-13 08:09:32315Lghxokld HermannCHEM PANEL 2018-03-17 08:09:004.4[facility] HermannCHEM CSOLD6592-57-57 08:09:0012.50[facility] HermannCHEM KAARA8771-29-56 08:09:0085[facility] HermannCHEM SFPAK2890-70-33 08:09:96772Mrfbdgba HermannCHEM LHNZR7601-28-00 08:09:001.9[facility] HermannCHEM FJRZF6916-32-13 08:09:0065[facility] HermannCHEM ODSIX8515-91-04 08:09:007.5 [facility] QdjmzptTKFUBHLSAB4054-55-90 08:09:000.8[facility] HermannHEMATOLOGY 2018-03-17 08:09:000.5[facility] RdzaxpkDFZLZVCDHD4231-99-14 08:09:000.7[facility] SaoctklBWJATSGSAO0026-82-34 08:09:000.5[facility] QuwijbuGQQSPFYPPG9810-04-33 08:09:007.4[facility] FpmihxqFVKLHXUVYB7641-96-16 08:09:001+ *ABN*(03/17/18 3:09 AM) [facility] VkvdfkaYPQYFZOPKU8487-11-51 08:09:007.7[facility] HermannHEMATOLOGY 2018-03-17 08:09:009.3[facility] GuttcqdXGLPLJWUUS0347-02-57 08:09:0082.0[facility] LblretfYPZVBJZLVI7446-17-82 08:09:00 Test Item Value Reference Range Interpretation Comments INR (test code = INR) 1.26 1 0.85-1.17 [facility] YuedkakIIVVCMCWVI1939-94-58 08:09:00 Test Item Value Reference Range Interpretation Comments PT (test code = PT) 15.9 s 12.0-14.7 [facility] HzelteqSSSMCGLQNH2581-67-23 08:09:00 Test Item Value Reference Range Interpretation Comments MCH (test code = MCH) 26.4 pg 27.0-31.0 [facility] NmbtnogMMMQKTYPLY0000-33-32 08:09:0077.8[facility] HermannHEMATOLOGY 2018-03-17 08:09:0022.2[facility] UdzvxltMEGVZAQKVB0724-43-49 08:09:007.5[facility] OqpbcfhVKWUELPZTN6988-89-04 08:09:009.0[facility] WvomvhmBPQFPPRBID7583-42-73 08:09:002.86[facility] NrfrpclXANHNOUTRR3785-34-97 08:09:007.4[facility] IUTILLCKEN7595-31-25 08:09:13316Wsqrmtvv RbxnuztNKFCLIENXB4747-37-70 08:09:00 15.1[facility] WbluvqoPZGQFFEJTC2540-73-88 08:09:0034.0[facility] HermannCARDIAC SPMWEDY2350-89-98 08:09:00 Test Item Value Reference Range Interpretation Comments CK MB Index (test 1.2 1 See_Comment [Automate d message] The code = CK MB Index) system w [facility] generated this result transmit emerson reference range : <=2.5. The reference range was not used to interpr et this result as erinn l/abnormal. [facility] HermannCARDIAC WBQCBBU7116-28-39 08:09:39773Wcikjeos HermannCARDIAC NFJCMGD9563-22-40 08:09:4906634Adzvokby HermannCARDIAC UUASVHZ2708-12-41 08:09:001.5[facility] HermannCARDIAC WSVDZOL3175-07-62 08:09:00<0.02[facility] HermannCHEM GFRQL7123-14-94 08:09:0033.0[facility] HermannCHEM GYCIX2946-28-76 08:09:004[facility] HermannCHEM EDXQQ5848-17-70 08:09:0089[facility] HermannCHEM JIISA0434-52-54 08:09:0093[facility] HermannCHEM DTOTX4787-20-92 08:09:004.1 [facility] HermannCHEM HCXZY5416-76-69 08:09:00 Test Item Value Reference Range Interpretation Comments A/G Ratio (test code = A/G Ratio) 0.7 1 0.7-1.6 [facility] HermannCHEM GNVNV2818-34-93 08:09:00 Test Item Value Reference Range Interpretation Comments B/C Ratio (test code = B/C Ratio) 7 1 6-25 [facility] HermannCHEM TTKLC4783-67-47 08:09:0020.4[facility] HermannCHEM PANEL 2018-03-17 08:09:000.4[facility] HermannCHEM ZVXOT9794-94-31 08:09:0011[facility] HermannCHEM YPCBG8269-20-66 08:09:0010[facility] HermannCHEM YMVAB5881-18-95 08:09:002.7[facility] HermannCHEM XQHHU6066-92-60 08:09:0021[facility] HermannCHEM EFUEY8454-10-40 08:09:006.8[facility] HermannCHEM WMQPU8790-12-93 08:09:007.5 [facility] HermannCHEM OKPSB1129-31-23 08:09:79789Tpyrggwd HermannCHEM PANEL 2018-03-17 08:09:004.4[facility] HermannCHEM NBVFW9180-06-97 08:09:0012.50[facility] HermannCHEM XMUYI9874-17-73 08:09:0085[facility] HermannCHEM ZTMZK1628-75-37 08:09:98421Xpcgmdrw HermannCHEM YTUQG6657-26-52 08:09:001.9[facility] HermannCHEM LEEJB1049-93-21 08:09:0065[facility] HermannCHEM QRXUW3402-59-77 08:09:007.5 [facility] WcerdddVTQQHARIVT9653-66-12 08:09:000.8[facility] HermannHEMATOLOGY 2018-03-17 08:09:000.5[facility] OzvfbvfAKOHLMVJJT8111-09-21 08:09:000.7[facility] FaqpzzxPUKHIVDSUJ7156-91-63 08:09:000.5[facility] FcjjsufELFHXMXDEH1043-97-96 08:09:007.4[facility] AuuxjlhMHRGWWKFID6762-50-34 08:09:001+ *ABN*(03/17/18 3:09 AM) [facility] AmiypjeAHTNTHHTNQ5356-76-33 08:09:007.7[facility] HermannHEMATOLOGY 2018-03-17 08:09:009.3[facility] IulaiomLDPWZQNVBB0901-28-39 08:09:0082.0[facility] IlwjphdWTLIELWTVI0966-45-42 08:09:00 Test Item Value Reference Range Interpretation Comments INR (test code = INR) 1.26 1 0.85-1.17 [facility] FczvihiYNCFOACZDP5174-24-84 08:09:00 Test Item Value Reference Range Interpretation Comments PT (test code = PT) 15.9 s 12.0-14.7 [facility] DplmoxzLKOPLMHOWW8903-32-18 08:09:00 Test Item Value Reference Range Interpretation Comments MCH (test code = MCH) 26.4 pg 27.0-31.0 [facility] SgaowcjIPXBITDRDX1628-12-58 08:09:0077.8[facility]annHEMATOLOGY 2018-03-17 08:09:0022.2[facility] NooqtkoLMZDCZUYGG6368-17-34 08:09:007.5[facility] MytimiqGHXDTRMAZJ9972-20-30 08:09:009.0[facility] FyynrszPAYVIKLJJR5718-45-81 08:09:002.86[facility] SwbrswnUDCXFXHDTV5903-93-79 08:09:007.4[facility] JNTSSJJAND6457-55-12 08:09:41461Lyrkbthj EigmzwaOAXPKHVVTR2818-58-62 08:09:00 15.1[facility] FijgouhIKTSKZMXMP8353-20-68 08:09:0034.0[facility] HermannCARDIAC YLRYRAS9600-22-44 08:09:00 Test Item Value Reference Range Interpretation Comments CK MB Index (test 1.2 1 See_Comment [Automate d message] The code = CK MB Index) system w [facility] generated this result transmit emerson reference range : <=2.5. The reference range was not used to interpr et this result as erinn l/abnormal. [facility]annCARDIAC OFALUFW1769-09-75 08:09:52919Btncmldi HermannCARDIAC NHRZEAS5997-33-55 08:09:6865454Pnvqvgvl HermannCARDIAC JOANGUG1637-65-52 08:09:001.5[facility]annCARDIAC NWXJTVE5379-63-15 08:09:00<0.02[facility]annCHEM ZHZRG9426-36-62 08:09:0033.0[facility]annCHEM CQGOH6252-84-64 08:09:004[facility]annCHEM UCYJE5452-43-33 08:09:0089[facility]annCHEM HIPJS7003-45-92 08:09:0093[facility]annCHEM GTXJJ5600-42-60 08:09:004.1 [facility]annCHE[facility] ALQKI5892-67-74 08:09:00 Test Item Value Reference Range Interpretation Comments A/G Ratio (test code = A/G Ratio) 0.7 1 0.7-1.6 [facility]annCHE[facility] YWFES6620-05-25 08:09:00 Test Item Value Reference Range Interpretation Comments B/C Ratio (test code = B/C Ratio) 7 1 6-25 [facility]annCHE[facility] YPWYI6398-84-99 08:09:0020.4[facility]annCHEM PANEL 2018-03-17 08:09:000.4[facility]annCHEM HNSAJ2203-62-22 08:09:0011[facility]annCHEM GPHFJ9680-00-40 08:09:0010[facility]annCHEM HDEVQ5175-91-52 08:09:002.7[facility]annCHEM UIGIQ9700-26-41 08:09:0021[facility]annCHEM JUQWI5560-04-87 08:09:006.8[facility]annCHEM OVUHX2204-42-19 08:09:007.5 [facility]annCHE[facility] GNWJO3664-70-82 08:09:09647Nqduytes HermannCHEM PANEL 2018-03-17 08:09:004.4[facility]annCHEM FZZCV9115-48-18 08:09:0012.50[facility]annCHEM DZSWO9643-71-17 08:09:0085[facility]annCHEM TRRBP1712-88-42 08:09:09713Lfqtwilf HermannCHEM SHTRO8304-04-27 08:09:001.9[facility]annCHEM CBCKK3826-70-95 08:09:0065[facility]annCHEM LJEKU8071-75-55 08:09:007.5 [facility] JlqauagMWBSFAUCHG5855-61-20 08:09:000.8[facility]annHEMATOLOGY 2018-03-17 08:09:000.5[facility] UcarpueDSWMOTKNIF1552-17-95 08:09:000.7[facility] CddtuytOIZKDLXHMY3302-26-35 08:09:000.5[facility] GxnmqtkVIFDZNUNXE5721-56-57 08:09:007.4[facility] JjzfrzbAOLPSDMDOW5444-10-10 08:09:001+ *ABN*(03/17/18 3:09 AM) [facility] SliqrrbECBXATKNXK9447-16-50 08:09:007.7[facility] HermannHEMATOLOGY 2018-03-17 08:09:009.3[facility] ArrufrdGKVBTGBPCW3254-87-77 08:09:0082.0[facility] BogudloUBYJOPPURA6850-36-88 08:09:00 Test Item Value Reference Range Interpretation Comments INR (test code = INR) 1.26 1 0.85-1.17 [facility] AhftgcbEMKJPQUPUB1920-09-13 08:09:00 Test Item Value Reference Range Interpretation Comments PT (test code = PT) 15.9 s 12.0-14.7 [facility] XioaexrRAQUFPNDQV1846-56-65 08:09:00 Test Item Value Reference Range Interpretation Comments MCH (test code = MCH) 26.4 pg 27.0-31.0 [facility] SttpgvrVTGFOLCKFF8528-65-78 08:09:0077.8[facility]annHEMATOLOGY 2018-03-17 08:09:0022.2[facility] IotlccbLGQBZAWZED0227-09-52 08:09:007.5[facility] VncdzsfRJLEYJUOPX5935-83-63 08:09:009.0[facility] PkdmdiiXLQZMOEPNH0568-53-08 08:09:002.86[facility] EofnljpJBZMYIEFJB6372-49-23 08:09:007.4[facility] EPJWCIWTAF9675-34-56 08:09:35103Shcsfqmh DxzrjwaVQPZISSGZY5579-51-74 08:09:00 15.1[facility] NcbnnzyBOXVAHASYX4441-13-12 08:09:0034.0[facility]annCARDIAC NUJZJKR4487-14-42 00:37:00 Test Item Value Reference Range Interpretation Comments CK MB Index (test 1.7 1 See_Comment [Automate d message] The code = CK MB Index) system w [facility] generated this result transmit emerson reference range : <=2.5. The reference range was not used to interpr et this result as erinn l/abnormal. [facility]annCARDIAC ZHVRLKD1178-95-17 00:37:002.9[facility]annCARDIAC OWQPKQE1052-25-88 00:37:00<0.02[facility]annCARDIAC JEGKODQ1960 00:37:82527Fvxpwxyw HermannCARDIAC CLQNAXT8927-30-06 00:37:589155Pfrcacra HermannCHEM ZHWJU4353-82-93 00:37:001.9[facility]annCHEM MRLQT3869-45-72 00:37:009.1[facility]annCHEM ZQGBH1528-43-19 00:37:005[facility]annCHEM LCFME6632-05-27 00:37:21589Rllchlbn HermannCHEM ZPRIA1524-61-20 00:37:0023 [facility]annCHEM VRYIF4143-77-97 00:37:0024[facility] HermannCHEM PANEL 2018-01-23 00:37:00 Test Item Value Reference Range Interpretation Comments A/G Ratio (test code = A/G Ratio) 0.8 1 0.7-1.6 [facility]annCHEM XNPAG7502-92-84 00:37:004.0[facility]annCHEM PANEL 2018-01-23 00:37:000.4[facility] HermannCHEM UNIOF6803-27-50 00:37:004.4[facility] HermannCHEM IQHGA9901-30-71 00:37:006.7[facility]annCHEM QBUWQ5501-00-43 00:37:67991Gowtyeck HermannCHEM KEAQO8122-92-46 00:37:0011.00[facility] CHEM FJIDX3971-08-89 00:37:0017.4[facility] HermannCHEM ISTDW7294-90-51 00:37:0025 [facility]annCHEM VVLNC0804-58-88 00:37:0092[facility]annCHEM PANEL 2018-01-23 00:37:003.4[facility]annCHEM CDJCD0422-45-08 00:37:007.4[facility] HermannCHEM JYOJI6046-54-96 00:37:00 Test Item Value Reference Range Interpretation Comments B/C Ratio (test code = B/C Ratio) 8 1 6-25 [facility]annCHEM PYJBZ5028-01-90 00:37:0084[facility]annCHEM PANEL 2018-01-23 00:37:91849Psjdphxe MhuaktzOYGEUHWHRY1624-61-02 00:37:0021.5[facility] VsftfzaVEGPFGYQLX9740-69-17 00:37:001.6[facility] RejxcvxQVWSEUDVXU8340-59-35 00:37:000.3[facility] ZuqvhccEXPFAIHAOW8041-39-95 00:37:0063.7[facility] EZZYQHLIZZ6277-91-02 00:37:004.8[facility] FidljjbEGPZTQKFZJ7724-60-34 00:37:003.5 [facility] CjkyfqyHEIXHORQSZ2865-23-48 00:37:0010.4[facility]annHEMATOLOGY 2018-01-23 00:37:000.9[facility] GfipdssZCVWEQIFZX7587-41-19 00:37:000.1[facility] CcdafbuNJHQVAYWLI3706-75-69 00:37:000.8[facility] HfwaxiqKIGDMMOFKL8041-31-43 00:37:00 Test Item Value Reference Range Interpretation Comments INR (test code = INR) 1.06 1 0.85-1.17 [facility] FhtvgkrFHLXUGWEDY7783-84-92 00:37:00 Test Item Value Reference Range Interpretation Comments PT (test code = PT) 13.8 s 12.0-14.7 [facility] OjoygpjFAJSCQQEZV4715-70-46 00:37:00 Test Item Value Reference Range Interpretation Comments PTT (test code = PTT) 35.7 s 22.9-35.8 [facility] UxhmmsaXARKNEMCIW8785-05-53 00:37:62326Lijpeqvh HermannHEMATOLOGY 2018-01-23 00:37:007.5[facility] PztkgrbHMUYLOPPSS5567-37-03 00:37:0025.4[facility] OtkbjfeRDCQVFWVVU5076-78-17 00:37:0080.3[facility] JdumqlcPOZJNAGUQP9698-99-63 00:37:00 Test Item Value Reference Range Interpretation Comments MCH (test code = MCH) 28.2 pg 27.0-31.0 [facility] LwdbddwUMKOGVOAZZ1449-33-00 00:37:008.9[facility]annHEMATOLOGY 2018-01-23 00:37:0035.1[facility] YlutrvxYKBQRJZCXD7817-71-99 00:37:0013.9[facility] KeicuuuFECKFGIBVA6447-20-07 00:37:007.6[facility] MqykhzrXMUJGDNEFZ5838-40-21 00:37:003.16[facility] OLMAM0379-04-40 00:37:0050[facility] AND PCUDL1875-64-69 00:37:008[facility] RKCBF1223-93-03 00:37:00Small *ABN*(01/22/18 7:37 PM)[facility] NIGIH3520-09-95 00:37:00 Test Item Value Reference Range Interpretation Comments UA pH (test code = UA pH) 6.0 1 5.0-8.0 [facility] UTZFL2047-68-82 00:37:00Clear (01/22/18 7:37 PM) [facility] XPFFX4150-73-90 00:37:00 Test Item Value Reference Range Interpretation Comments UA Spec Grav (test code = UA Spec 1.005 1 Grav) [facility] AVKBH1235-63-65 00:37:00Negative (01/22/18 7:37 PM) [facility] ZDIJH7500-77-78 00:37:00Small *ABN*(01/22/18 7:37 PM) [facility] IUDJE8450-44-81 00:37:00Negative *NA*(01/22/18 7:37 PM) [facility] ZKLJPTB9228-92-67 00:37:00 Test Item Value Reference Range Interpretation Comments CK MB Index (test 1.7 1 See_Comment [Automate d message] The code = CK MB Index) system w [facility] generated this result transmit emerson reference range : <=2.5. The reference range was not used to interpr et this result as erinn l/abnormal. [facility]annCARDIAC PZYOCFN3116-69-41 00:37:002.9[facility]ann[facility]AC QGLSHRL7563-82-83 00:37:00<0.02[facility]annCARDIAC VGTIIZF0964-02-78 00:37:80852Eizjeitq HermannCARDIAC DLMHHCA4141-76-69 00:37:939482Vpzqfxzm HermannCHEM DALAK7246-51-28 00:37:001.9[facility]annCHEM IHBTB5538-23-51 00:37:009.1[facility]annCHEM NYHUO3137-57-49 00:37:005[facility]annCHEM MCVFB4273-78-39 00:37:47496Jjnrcbhl HermannCHEM SBMGA8781-36-72 00:37:0023 [facility]annCHE[facility] UPTNZ5062-44-27 00:37:0024[facility]annCHEM PANEL 2018-01-23 00:37:00 Test Item Value Reference Range Interpretation Comments A/G Ratio (test code = A/G Ratio) 0.8 1 0.7-1.6 [facility]annCHE[facility] AIJJZ8519-85-36 00:37:004.0[facility]annCHEM PANEL 2018-01-23 00:37:000.4[facility]annCHEM JIJYF9264-05-86 00:37:004.4[facility]annCHEM XRNPJ0706-41-19 00:37:006.7[facility]annCHEM QUGRY6055-97-48 00:37:98230Jcjzieny HermannCHEM YTYEA2999-13-61 00:37:0011.00[facility] CHEM QSAAB7799-69-01 00:37:0017.4[facility]annCHEM ROUFX3201-95-59 00:37:0025 [facility]annCHE[facility] LIDXL3992-32-45 00:37:0092[facility]annCHEM PANEL 2018-01-23 00:37:003.4[facility]annCHEM VUZXL9524-22-12 00:37:007.4[facility]annCHEM QNWIR0266-41-12 00:37:00 Test Item Value Reference Range Interpretation Comments B/C Ratio (test code = B/C Ratio) 8 1 6-25 [facility]annCHE[facility] QKCKE6905-81-51 00:37:0084[facility]annCHEM PANEL 2018-01-23 00:37:17643Vxcmktel LgdqqfuFXBHFYUMHU7058-41-30 00:37:0021.5[facility] HbbkohyZSSCIASFAS1169-43-05 00:37:001.6[facility] BdhhdsnSOXTYLJGMI9649-89-40 00:37:000.3[facility] FotgampOAHFNJHHPF3489-67-60 00:37:0063.7[facility] NXAWMSZKPQ1597-30-05 00:37:004.8[facility] MeyxosqHOKQJIPVSB4308-06-24 00:37:003.5 [facility] ZhlwabtFOIIBXGTLD4078-88-79 00:37:0010.4[facility] HermannHEMATOLOGY 2018-01-23 00:37:000.9[facility] OzjgsfoPHXSHQUXAE5021-54-72 00:37:000.1[facility] BswtywbSBBIMVHPWG0099-17-58 00:37:000.8[facility] NuqhwavVKCCNCWXVQ5928-49-51 00:37:00 Test Item Value Reference Range Interpretation Comments INR (test code = INR) 1.06 1 0.85-1.17 [facility] RdtoefwIRAEJGOOVW1957-63-93 00:37:00 Test Item Value Reference Range Interpretation Comments PT (test code = PT) 13.8 s 12.0-14.7 [facility] ZylpbhyYORFLGIUUM3494-12-28 00:37:00 Test Item Value Reference Range Interpretation Comments PTT (test code = PTT) 35.7 s 22.9-35.8 [facility] VwibfubOGMIZYUYIU6488-42-81 00:37:46488Pcypedcj HermannHEMATOLOGY 2018-01-23 00:37:007.5[facility] BbyutnlFIEGDWWXRD2579-62-61 00:37:0025.4[facility] UjwjvefXDJGFULLOX0107-33-57 00:37:0080.3[facility] WbhymqoAUOYVIXWXI6628-12-17 00:37:00 Test Item Value Reference Range Interpretation Comments MCH (test code = MCH) 28.2 pg 27.0-31.0 [facility] YnpynwzLHUFWZPRSX5835-36-96 00:37:008.9[facility]annHEMATOLOGY 2018-01-23 00:37:0035.1[facility] ApzfwfoYBIZPRLNFS4720-77-15 00:37:0013.9[facility] QajvcbnAIWJPUKIAR1757-33-90 00:37:007.6[facility] ZmkykxvEISEEMOPFU5355-52-54 00:37:003.16[facility] TWUOM5824-69-98 00:37:0050[facility] AND OBWID1501-08-76 00:37:008[facility] BBHSG1255-92-46 00:37:00Small *ABN*(01/22/18 7:37 PM)[facility] IYQHW3134-73-28 00:37:00 Test Item Value Reference Range Interpretation Comments UA pH (test code = UA pH) 6.0 1 5.0-8.0 [facility] ZUYNI1916-12-02 00:37:00Clear (01/22/18 7:37 PM) [facility] KOPMO3441-14-97 00:37:00 Test Item Value Reference Range Interpretation Comments UA Spec Grav (test code = UA Spec 1.005 1 Grav) [facility] LCKWM8953-11-97 00:37:00Negative (01/22/18 7:37 PM) [facility] AKPLJ8670-27-02 00:37:00Small *ABN*(01/22/18 7:37 PM) [facility] VTCES5964-66-11 00:37:00Negative *NA*(01/22/18 7:37 PM) [facility]CARDI[facility] IKHLPCX6169-00-56 00:37:00 Test Item Value Reference Range Interpretation Comments CK MB Index (test 1.7 1 See_Comment [Automate d message] The code = CK MB Index) system w [facility] generated this result transmit emerson reference range : <=2.5. The reference range was not used to interpr et this result as erinn l/abnormal. [facility]CARDIAC HZSSJWD8975-24-18 00:37:002.9[facility]annCARDIAC QRYLXOL4354-22-04 00:37:00<0.02[facility]annCARDIAC ODGVZRA1444-18-77 00:37:80143Ukwyyzkp HermannCARDIAC HYGHFHI6600-59-03 00:37:108252Okhfrtms HermannCHEM VKMOD3263-30-14 00:37:001.9[facility]annCHEM JIZRN0634-36-44 00:37:009.1[facility]annCHEM XOFFZ4941-98-25 00:37:005[facility]annCHEM KSVUT3377-36-52 00:37:06204Tkplfyrm HermannCHEM RHGKJ0769-13-77 00:37:0023 [facility]annCHE[facility] IQVHF3911-32-01 00:37:0024[facility]annCHEM PANEL 2018-01-23 00:37:00 Test Item Value Reference Range Interpretation Comments A/G Ratio (test code = A/G Ratio) 0.8 1 0.7-1.6 [facility]annCHEM FJGZH4713-47-74 00:37:004.0[facility]annCHEM PANEL 2018-01-23 00:37:000.4[facility]annCHEM QZQYK8935-25-56 00:37:004.4[facility]annCHEM XDCNU3033-12-67 00:37:006.7[facility]annCHEM QLPYT3964-41-89 00:37:46469Toduhugl HermannCHEM TQPVU2270-47-00 00:37:0011.00[facility] CHEM MFITD5538-03-42 00:37:0017.4[facility]annCHEM VOYWK4498-35-38 00:37:0025 [facility]annCHEM RVNAP1345-35-68 00:37:0092[facility]annCHEM PANEL 2018-01-23 00:37:003.4[facility]annCHEM JKXHT1354-36-90 00:37:007.4[facility]annCHEM DVCUS0210-44-85 00:37:00 Test Item Value Reference Range Interpretation Comments B/C Ratio (test code = B/C Ratio) 8 1 6-25 [facility]annCHE[facility] VSWJU0048-14-13 00:37:0084[facility]annCHEM PANEL 2018-01-23 00:37:41805Isvugdso CnwvwezBSKEUOGQDC4406-00-07 00:37:0021.5[facility] MtolbdmIXVETFNOTK0783-29-73 00:37:001.6[facility] CvhpcpaXJWEVJPZPH4991-30-43 00:37:000.3[facility] ZksywguBZVQSLFZIT6853-98-99 00:37:0063.7[facility] DDYSKTINYZ1090-01-07 00:37:004.8[facility] TioxeigAJAILWRJKU6875-14-87 00:37:003.5 [facility] UwhrsypZOLQDZNNVX8533-25-65 00:37:0010.4[facility] HermannHEMATOLOGY 2018-01-23 00:37:000.9[facility] KsaufvyZCTGRYQQDG6596-41-54 00:37:000.1[facility] VkrhknzUPTEXKKJOR9879-61-79 00:37:000.8[facility] XripoghAYFDZARKKD4013-69-08 00:37:00 Test Item Value Reference Range Interpretation Comments INR (test code = INR) 1.06 1 0.85-1.17 [facility] GvcfkxnNISYMGNFUJ5671-39-38 00:37:00 Test Item Value Reference Range Interpretation Comments PT (test code = PT) 13.8 s 12.0-14.7 [facility] BsmaqfrJFGOBDXFMO4593-07-84 00:37:00 Test Item Value Reference Range Interpretation Comments PTT (test code = PTT) 35.7 s 22.9-35.8 [facility] MtcicmcCGRDLUQUTO7333-26-16 00:37:02793Ofjjcrxi HermannHEMATOLOGY 2018-01-23 00:37:007.5[facility] XkblmsvULMXZJQFTN4756-07-61 00:37:0025.4[facility] MiusboiXRRWNCCLON0979-81-79 00:37:0080.3[facility] QtqbesfQZEQDIACXN9970-47-32 00:37:00 Test Item Value Reference Range Interpretation Comments MCH (test code = MCH) 28.2 pg 27.0-31.0 [facility] VmussiwCXCVOKMXWD5733-05-93 00:37:008.9[facility] HermannHEMATOLOGY 2018-01-23 00:37:0035.1[facility] BvrejccIFTRWCNURS9611-94-54 00:37:0013.9[facility] UtrbnyeZZBEOFONQX8076-92-00 00:37:007.6[facility] EqjkcehDRLQIZPJHJ8696-32-63 00:37:003.16[facility] TRCSO3247-97-43 00:37:0050[facility]INE AND HXTLU7498-44-28 00:37:008[facility] NUMXJ8624-33-84 00:37:00Small *ABN*(01/22/18 7:37 PM)[facility] NGBGG8097-09-24 00:37:00 Test Item Value Reference Range Interpretation Comments UA pH (test code = UA pH) 6.0 1 5.0-8.0 [facility] YPRTZ4606-55-61 00:37:00Clear (01/22/18 7:37 PM) [facility] SOISJ5485-37-68 00:37:00 Test Item Value Reference Range Interpretation Comments UA Spec Grav (test code = UA Spec 1.005 1 Grav) [facility] WWUSS3794-93-13 00:37:00Negative (01/22/18 7:37 PM) [facility] QMPZN3690-91-32 00:37:00Small *ABN*(01/22/18 7:37 PM) [facility] TJRBI6068-79-35 00:37:00Negative *NA*(01/22/18 7:37 PM) [facility]annCHEM RHOFN2453-98-60 10:09:001.8[facility] HermannCHEM PANEL 2017-12-20 10:09:004[facility] HermannCHEM GWUPC9426-76-53 10:09:0011.60[facility]annCHEM WNBTT8805-74-40 10:09:006.9[facility]annCHEM MJHWS3422-43-54 10:09:0027[facility]annCHEM GXWTX7610-80-45 10:09:48413Ztkgxjgz HermannCHEM TNMGP2113-03-79 10:09:0094[facility]annCHEM OPBPV6276-09-68 10:09:003.7 [facility]annCHEM UPOEZ8127-18-10 10:09:04112Vdhvyzlg HermannCHEM PANEL 2017-12-20 10:09:0085[facility] HermannCHEM WQGKK1468-86-44 10:09:0015.7[facility] JooscgaXBQKLMZWFD1802-19-78 10:09:000.2[facility] KrnhppbZHSUBDFGQX1442-97-02 10:09:000.6[facility] GutvdqoPDIUJZTLXW7885-90-30 10:09:001+ *ABN*(12/20/17 5:09 AM)[facility] YivuyzxHCLHZJPBBY1283-91-23 10:09:0071.0[facility] HermannHEMATOLOGY 2017-12-20 10:09:001.0[facility] JowktoyBVYYOTYVUL0139-91-40 10:09:000.8[facility] AhqkdcsDSZRHTHGDT8495-94-00 10:09:004.6[facility] KjenwegWQIVKGMIVL0824-65-05 10:09:0015.7[facility] UgeeqlaEILQTSPBQV9408-76-53 10:09:003.1[facility] QQCZHXINLT4825-61-16 10:09:009.4[facility] NlvccwaBJXJFBDKCH0485-10-64 10:09:48046 [facility] RbzogfhYGEPZQLNCK0225-89-09 10:09:0077.5[facility]annHEMATOLOGY 2017-12-20 10:09:0035.5[facility] XygyvzxGZBNKUJTAH3040-57-24 10:09:00 Test Item Value Reference Range Interpretation Comments MCH (test code = MCH) 27.5 pg 27.0-31.0 [facility] NfvryjxSBWDSGLBAR8900-54-67 10:09:0014.1[facility]annHEMATOLOGY 2017-12-20 10:09:007.7[facility] SexfdnhVIZEYAHKZK7424-63-74 10:09:0023.5[facility] XflatkqRZQLZHRQHP4158-84-71 10:09:008.4[facility] LufwqymJLGUFGKWDW6777-08-12 10:09:003.03[facility] LumiflyOSUXRQCCXX6273-23-54 10:09:006.5[facility] PARATHYROID BROMOLX7366-85-32 10:09:000.86[facility] HermannPARATHYROID PROFILE 2017-12-20 10:09:000.86[facility]annCHEM HXPBD3432-73-47 10:09:001.8[facility]annCHEM DCTBF0951-79-98 10:09:004[facility]annCHEM CTSUE9945-51-45 10:09:0011.60[facility]annCHEM ILCRZ6779-76-37 10:09:006.9[facility] CHEM MNVYM2290-03-07 10:09:0027[facility]annCHEM SQIMW2118-72-36 10:09:64302 [facility]annCHEM JLIMT4865-22-72 10:09:0094[facility]annCHEM PANEL 2017-12-20 10:09:003.7[facility]annCHEM YFNWY9116-12-79 10:09:18808Yekgctqa HermannCHEM ICHKV7124-35-66 10:09:0085[facility]annCHEM RIRZA8452-61-42 10:09:0015.7[facility] KxruhwoVZJWFXRUYB9025-16-83 10:09:000.2[facility] YPWMMRHJGP6142-53-41 10:09:000.6[facility] GyrbrqpXDCYFTPSFG5677-73-89 10:09:001+ *ABN*(12/20/17 5:09 AM)[facility] OfebwnbJSORAOKZTT5134-95-76 10:09:0071.0[facility] TpqhhumQDYCJNESXO0057-68-60 10:09:001.0[facility] GmklkmfVMLQBPFJQG8039-78-49 10:09:000.8[facility] FcxixpvAEWTDWCCDS6084-82-19 10:09:004.6[facility] XWVFNKOJJP4972-97-48 10:09:0015.7[facility] KbhfsuwSEPFXLBUHC8195-53-29 10:09:00 3.1[facility] YobftrjHWKPSLNZIK4559-92-32 10:09:009.4[facility]annHEMATOLOGY 2017-12-20 10:09:37098Kzfkgwqz FiuhjbqYKKDBHXZNT9252-11-42 10:09:0077.5[facility] MexhafkQDJAIAWDDL5016-97-12 10:09:0035.5[facility] MnnyjrgCLOKNIVORI3551-16-77 10:09:00 Test Item Value Reference Range Interpretation Comments MCH (test code = MCH) 27.5 pg 27.0-31.0 [facility] GjonmcdNVEFRZHJRF7720-56-80 10:09:0014.1[facility]annHEMATOLOGY 2017-12-20 10:09:007.7[facility] RjtjutvRXUVGWRAMS7434-96-29 10:09:0023.5[facility] HlzwkvpUNCUSPMVTY8732-30-75 10:09:008.4[facility] QnbjeawBLCNCWFSSA0021-70-65 10:09:003.03[facility] YbqzityFHSPSJSYCD4812-67-68 10:09:006.5[facility] PARATHYROID KOTMRSI9102-57-66 10:09:000.86[facility] HermannPARATHYROID PROFILE 2017-12-20 10:09:000.86[facility] HermannCHEM ZXAVA0347-14-07 10:09:001.8[facility]annCHEM LFUIX7926-16-03 10:09:004[facility]annCHEM MDDBN6468-75-61 10:09:0011.60[facility]annCHEM BCINS6997-32-05 10:09:006.9[facility] CHEM OYMVN0293-00-48 10:09:0027[facility]annCHEM XKCBW1001-02-77 10:09:05461 [facility]annCHEM NNCEQ5940-93-86 10:09:0094[facility]annCHEM PANEL 2017-12-20 10:09:003.7[facility] HermannCHEM JDDMZ1549-98-62 10:09:93869Wgseqzvy HermannCHEM YWXPK6136-62-41 10:09:0085[facility]annCHEM TJMKG4329-51-00 10:09:0015.7[facility] IfowhykIEMYNKHYFI4683-17-55 10:09:000.2[facility] APQXKJNOKV3235-74-21 10:09:000.6[facility] WwrhgdrKLPBNSPLBI4878-63-94 10:09:001+ *ABN*(12/20/17 5:09 AM)[facility] QubyxnzANSENIOHPK4084-91-94 10:09:0071.0[facility] ArniiwnTXOOJESBRM1001-88-89 10:09:001.0[facility] HwfwttoFKGRGSGWQF6752-77-41 10:09:000.8[facility] CpexayuDEVPRJIZPK1773-25-40 10:09:004.6[facility] VLDVHVDEWD9140-85-56 10:09:0015.7[facility] LhzdlukNZNZVLMEXX6468-14-12 10:09:00 3.1[facility] CzeplpnETTMRMOHMO3745-09-95 10:09:009.4[facility] HermannHEMATOLOGY 2017-12-20 10:09:60237Zihfnwnq WznepxfXCWGXFRRUP3849-74-93 10:09:0077.5[facility] FhvitanEFARYYGXSE7906-94-36 10:09:0035.5[facility] LhxmtvfXJESLGOMJM5240-94-05 10:09:00 Test Item Value Reference Range Interpretation Comments MCH (test code = MCH) 27.5 pg 27.0-31.0 [facility] QniwqarVTVWIKPJHY2609-04-12 10:09:0014.1[facility]annHEMATOLOGY 2017-12-20 10:09:007.7[facility] AbqsacbCFVKOCEPRY6688-68-48 10:09:0023.5[facility] MdtvlckGMUJTSUOKY5844-67-64 10:09:008.4[facility] ApstuhzTEQBRXSTBS5912-88-84 10:09:003.03[facility] EaoirlrFWTNBNLXVT4768-61-33 10:09:006.5[facility] PARATHYROID RGPZKRJ9838-87-05 10:09:000.86[facility] HermannPARATHYROID PROFILE 2017-12-20 10:09:000.86[facility] IXPPP7023-21-52 17:00:00 Positive *ABN*(12/19/17 12:00 PM)[facility] WERXF6955-98-18 17:00:00Positive *ABN*(12/19/17 12:00 PM)[facility] STOOL 2017-12-19 17:00:00Positive *ABN*(12/19/17 12:00 PM)[facility]annCHEM PANEL 2017-12-19 12:14:008.2[facility] HermannCHEM ZQZXA4143-94-14 12:14:00 Test Item Value Reference Range Interpretation Comments A/G Ratio (test code = A/G Ratio) 0.8 1 0.7-1.6 [facility]annCHEM XIJHP5353-46-92 12:14:009[facility]annCHEM PANEL 2017-12-19 12:14:0010[facility] HermannCHEM FDPGU8770-51-96 12:14:003.5[facility]annCHEM YHGFU1506-40-79 12:14:002.7[facility]annCHEM GFGCV3959-33-70 12:14:004[facility]annCHEM JXSOV9209-31-42 12:14:10706Csdoxmvv HermannCHEM JOPPM8846-17-71 12:14:000.3[facility]annCHEM ZBIAE5675-24-36 12:14:0088 [facility]annCHEM SGKWV8782-08-65 12:14:003.6[facility]annCHEM PANEL 2017-12-19 12:14:0095[facility]annCHEM OFXWP6209-07-73 12:14:63047Rkiagjll HermannCHEM WYWRS9475-67-02 12:14:65322Bzvkmdvk HermannCHEM EZUDH2490-16-25 12:14:0011.70[facility]annCHEM YMICQ6753-20-15 12:14:00 Test Item Value Reference Range Interpretation Comments B/C Ratio (test code = B/C Ratio) 9 1 6-25 [facility]annCHEM ZVPVD0613-46-42 12:14:006.2[facility]annCHEM PANEL 2017-12-19 12:14:006.5[facility] HermannCHEM WNMES5016-77-65 12:14:0014.6[facility]annCHEM PXRBF3320-30-07 12:14:0029[facility] HermannPARATHYROID PROFILE 2017-12-19 12:14:000.88[facility] HermannPARATHYROID ADDKZMS9483-80-34 12:14:00 0.85[facility] HermannCHEM KYFGQ8907-33-08 12:14:008.2[facility] HermannCHEM PANEL 2017-12-19 12:14:00 Test Item Value Reference Range Interpretation Comments A/G Ratio (test code = A/G Ratio) 0.8 1 0.7-1.6 [facility]annCHEM KRWUV2700-96-11 12:14:009[facility]annCHEM PANEL 2017-12-19 12:14:0010[facility] HermannCHEM XBEAW5180-72-37 12:14:003.5[facility]annCHEM LRYBT7211-70-04 12:14:002.7[facility]annCHEM IWCOL6573-15-89 12:14:004[facility]annCHEM HOXEE1513-37-75 12:14:44609Vuhjweno HermannCHEM NKMJS6189-34-30 12:14:000.3[facility]annCHEM PIZOU1505-13-01 12:14:0088 [facility]annCHEM ZMGDZ8040-21-59 12:14:003.6[facility]annCHEM PANEL 2017-12-19 12:14:0095[facility]annCHEM RFRKU7298-05-05 12:14:43297Nyidhziw HermannCHEM LCSPX8814-14-40 12:14:90002Nezwpohb HermannCHEM ZNOSP5235-45-16 12:14:0011.70[facility]annCHEM GSMSQ0330-55-35 12:14:00 Test Item Value Reference Range Interpretation Comments B/C Ratio (test code = B/C Ratio) 9 1 6-25 [facility]annCHEM MBZOY4507-87-06 12:14:006.2[facility] HermannCHEM PANEL 2017-12-19 12:14:006.5[facility] HermannCHEM MPERT8245-92-09 12:14:0014.6[facility] HermannCHEM UKUKL5838-42-03 12:14:0029[facility] HermannPARATHYROID PROFILE 2017-12-19 12:14:000.88[facility]annPARATHYROID PCHWTUW9120-91-89 12:14:00 0.85[facility]CHE[facility] FWIAU2087-09-63 12:14:008.2[facility]CHE[facility] PANEL 2017-12-19 12:14:00 Test Item Value Reference Range Interpretation Comments A/G Ratio (test code = A/G Ratio) 0.8 1 0.7-1.6 [facility] TNUVM6208-23-19 12:14:009[facility]CHE[facility] PANEL 2017-12-19 12:14:0010[facility]CHE[facility] CZHYR7177-13-04 12:14:003.5[facility] RAXWH3391-41-79 12:14:002.7[facility]CHE[facility] LRWIH1056-30-76 12:14:004[facility]CHE[facility] PQMFD8759-57-28 12:14:96991Nsqhhspp HermannCHEM FEILZ3413-06-59 12:14:000.3[facility]CHE[facility] YFHXW7511-67-84 12:14:0088 [facility] KJHDY2864-20-58 12:14:003.6[facility]annCHE[facility] PANEL 2017-12-19 12:14:0095[facility] ITTTQ2179-71-97 12:14:51503Lhwubljq [facility]annCHEM VHOGR2202-44-81 12:14:09620Piluupum [facility]annCHEM ONZLF8395-34-39 12:14:0011.70[facility]CHE[facility] AEGDX5986-25-36 12:14:00 Test Item Value Reference Range Interpretation Comments B/C Ratio (test code = B/C Ratio) 9 1 6-25 [facility] LQRRF4252-25-19 12:14:006.2[facility]annCHE[facility] PANEL 2017-12-19 12:14:006.5[facility] LWAQE9260-07-67 12:14:0014.6[facility]CHE[facility] UXMKD5015-36-41 12:14:0029[facility]annPARATHYROID PROFILE 2017-12-19 12:14:000.88[facility]annPARATHYROID XBCKQGR6133-40-20 12:14:00 0.85[facility]CHE[facility] DNZUO8559-68-43 10:02:004[facility]CHE[facility] PANEL 2017-12-19 10:02:0092[facility]CHE[facility] XRGZX8898-54-57 10:02:82063Nmbxlven HermannCHEM VOJZT6372-98-56 10:02:003.6[facility]CHE[facility] TWDFN5564-55-05 10:02:0097[facility]CHE[facility] DQSCI3610-51-74 10:02:0011.80[facility]CHE[facility] QZDJJ2536-43-79 10:02:006.8[facility]CHE[facility] MVSPN1965-69-69 10:02:0027 [facility] HZMZA4216-06-35 10:02:0018.6[facility]annCHEM PANEL 2017-12-19 10:02:0096[facility]CHE[facility] WPCRC2353-47-15 10:02:001.8[facility] ImqluumJXVJVBSJOM8833-24-28 10:02:0014.3[facility] YikbiezBSJHWEJHGO0662-49-28 10:02:0034.5[facility] WzelunlVWNGKZRXKW6461-86-56 10:02:00 Test Item Value Reference Range Interpretation Comments MCH (test code = MCH) 26.8 pg 27.0-31.0 [facility] LqnujowIQCOOOGUPE5760-54-50 10:02:008.0[facility]annHEMATOLOGY 2017-12-19 10:02:85649Koauokli RapacdnHKEYDOUFNE2156-91-93 10:02:0077.7[facility] UsxznniQLIJDJSQAK1957-36-59 10:02:0024.7[facility] PuvtuuyQZRKBGMUQH7227-63-34 10:02:008.5[facility] QtavwkuZOQJCHGRDD1258-00-16 10:02:003.17[facility] YEAHNNWZWS3266-90-72 10:02:006.6[facility] SkjpbonFYERGTIYGR8573-90-38 10:02:000.7 [facility] NtgzjhnZWCYIGBRYU2564-71-08 10:02:000.2[facility]annHEMATOLOGY 2017-12-19 10:02:001+ *ABN*(12/19/17 5:02 AM)[facility] BrgrvnuRPPURPRWGW8843-22-65 10:02:001.0[facility] HazbahzIWQICHAXEK2547-81-25 10:02:000.6[facility] ALRNUHKOSK7805-97-19 10:02:004.7[facility] YmnugnnTROCCCGJXG0065-40-74 10:02:00 10.3[facility] DtrxicaCHOYFEFGRJ2804-76-96 10:02:002.9[facility]annHEMATOLOGY 2017-12-19 10:02:0015.3[facility] RckatzkPRXGMCAQWF8335-10-07 10:02:0070.9[facility]annPARATHYROID TXINDLR4654-40-08 10:02:000.88[facility]annPARATHYROID UBGTHRL4361-54-72 10:02:000.88[facility]annCHEM HTEYT2889-27-46 10:02:004 [facility]CHE[facility] CHQXN9353-43-50 10:02:0092[facility]annCHEM PANEL 2017-12-19 10:02:01098Aqbqxojx HermannCHEM EOXYN9542-34-80 10:02:003.6[facility]annCHEM KLDZK1800-02-39 10:02:0097[facility]annCHE[facility] YMHZB3151-67-11 10:02:0011.80[facility]annCHE[facility] ECOSR8845-28-37 10:02:006.8[facility] CHEM GVXLD9826-35-12 10:02:0027[facility]CHE[facility] DSXKU3642-73-94 10:02:0018.6 [facility]CHE[facility] MDKNT0715-01-22 10:02:0096[facility]annCHEM PANEL 2017-12-19 10:02:001.8[facility] XanlamnVPHZMCZCOD8385-11-33 10:02:0014.3[facility] QmccflxMHPOXKMFVV9371-94-28 10:02:0034.5[facility] CqjkyqoLNPHFUBWQD7230-30-01 10:02:00 Test Item Value Reference Range Interpretation Comments MCH (test code = MCH) 26.8 pg 27.0-31.0 [facility] LfeizzwHPJSDGJNME2851-31-83 10:02:008.0[facility]annHEMATOLOGY 2017-12-19 10:02:69636Kozxmkyk ZmraqsgEDSEDWHAJN0522-19-12 10:02:0077.7[facility] XxcmuaxCNKUJRRAOU8340-07-79 10:02:0024.7[facility] McgwezqCUJKJDCBVL6128-78-44 10:02:008.5[facility] LydvlnkDKLVVDIDAM9523-15-58 10:02:003.17[facility] JOKBSNPJYX3632-93-11 10:02:006.6[facility] UeyqjysFHAXNUMEXX0255-43-93 10:02:000.7 [facility] VqssuycLXLTFWUNQO4051-47-92 10:02:000.2[facility]annHEMATOLOGY 2017-12-19 10:02:001+ *ABN*(12/19/17 5:02 AM)[facility] KtbueaoBYAGGBVONS2859-83-03 10:02:001.0[facility] AqyuvcaXJQHRLCAFT7088-26-96 10:02:000.6[facility] BSHFSBGJZW5371-00-85 10:02:004.7[facility] JsyqdwzEXQDOHVBDB9796-28-22 10:02:00 10.3[facility] IwlckapJYNNAPLHWJ1522-78-63 10:02:002.9[facility]annHEMATOLOGY 2017-12-19 10:02:0015.3[facility] ZvlafnoDBEADCHATV5980-26-90 10:02:0070.9[facility]annPARATHYROID EGYKSBX1374-14-75 10:02:000.88[facility]annPARATHYROID NETDLBQ6778-50-92 10:02:000.88[facility]annCHEM MVUEH5396-87-64 10:02:004 [facility]CHE[facility] ESDPJ7155-23-14 10:02:0092[facility]annCHEM PANEL 2017-12-19 10:02:62420Cdvcbfru [facility]annCHEM PAYXE5810-09-61 10:02:003.6[facility]annCHE[facility] XARRV2314-32-74 10:02:0097[facility]annCHE[facility] CIJUD4289-46-74 10:02:0011.80[facility]annCHE[facility] BROZX8587-46-52 10:02:006.8[facility] CHEM UPHRH0827-09-01 10:02:0027[facility]CHE[facility] XMUAJ1978-61-55 10:02:0018.6 [facility]CHE[facility] VXARB8926-11-60 10:02:0096[facility]annCHEM PANEL 2017-12-19 10:02:001.8[facility] OeoodqcVSPUZFLLLM4634-09-47 10:02:0014.3[facility] JtentsnIRBIUINGOJ7748-96-04 10:02:0034.5[facility] FddjytrNHGEONYSLD8455-26-50 10:02:00 Test Item Value Reference Range Interpretation Comments MCH (test code = MCH) 26.8 pg 27.0-31.0 [facility] BmjbohwLAPRXPIVZO7431-27-03 10:02:008.0[facility]annHEMATOLOGY 2017-12-19 10:02:47517Piantntc CddfuxcDAUXDOGBME4075-20-09 10:02:0077.7[facility] IpljrhzQALKLCMQWL7814-81-64 10:02:0024.7[facility] NovnalpZRORTYDLXH7780-10-66 10:02:008.5[facility] CfmsastBNGHKIGRRN8866-92-01 10:02:003.17[facility] YFTGMFXPVW0477-90-36 10:02:006.6[facility] IwlvbdtYJTRJUEGCX7557-82-80 10:02:000.7 [facility] RzedeveUFYNBNODXO2155-96-57 10:02:000.2[facility]annHEMATOLOGY 2017-12-19 10:02:001+ *ABN*(12/19/17 5:02 AM)[facility] EgsfqsjZVVDQNXJKB2725-12-66 10:02:001.0[facility] PhxbfedVQHZYBRRPZ5074-60-96 10:02:000.6[facility] JZPXOTPQWJ8153-62-68 10:02:004.7[facility] WwyziowOQQCFILQTB8145-02-51 10:02:00 10.3[facility] RqkagffVVWCNBCMKM9707-64-91 10:02:002.9[facility]annHEMATOLOGY 2017-12-19 10:02:0015.3[facility] IsgbwnpFSYTOWZKRU6481-94-66 10:02:0070.9[facility] HermannPARATHYROID HRNNHSA7492-65-90 10:02:000.88[facility] HermannPARATHYROID RURCQBW4127-72-43 10:02:000.88[facility] HermannCHEM IXGSZ0807-48-79 09:55:001.9 [facility]annCHEM PCAFM6883-23-99 09:55:008.8[facility]annCHEM PANEL 2017-12-18 09:55:001.9[facility]annCHEM NLFBH1079-86-24 09:55:008.8[facility]annCHEM XPFUJ7823-88-66 09:55:001.9[facility]annCHEM LMTHF9417-70-08 09:55:008.8[facility] PsrdyxlOAPNJDRBAD3059-17-96 09:32:001+ *ABN*(12/17/17 4:32 AM)[facility] EjbncfiQUVOFQLSZN5399-85-67 09:32:000.2[facility]annHEMATOLOGY 2017-12-17 09:32:000.6[facility] WxosmwpAMQPKVSNKG3822-43-16 09:32:001.0[facility] XfvhbesRFNUVPHQDP3488-04-80 09:32:003.9[facility] XifcqegMCLOZRSWKK1712-37-92 09:32:000.6[facility] JfpzixlXKCXKQRAZX7543-60-51 09:32:002.7[facility] IJADTDZRTS2928-47-80 09:32:0010.4[facility] UdoanflMGNTTKCGMJ9359-81-78 09:32:00 18.1[facility] SunswjfRSQVFOGWPN7390-83-90 09:32:0068.2[facility]annHEMATOLOGY 2017-12-17 09:32:15226Ekvodmhw DaqfefgWZSYLMASWN4146-79-11 09:32:0014.3[facility] FmpnwmcOFAVKOKVGI3868-38-11 09:32:008.0[facility] VprihjfTZJLDWJZMK0752-51-48 09:32:00 Test Item Value Reference Range Interpretation Comments MCH (test code = MCH) 27.4 pg 27.0-31.0 [facility] XhxtokzONOAFRHPDF0401-38-29 09:32:0078.6[facility]annHEMATOLOGY 2017-12-17 09:32:0022.8[facility] UwuhoxcANFDPSNGYF5737-70-13 09:32:0034.9[facility] FrbhavcTFBPSIBJDC3380-09-26 09:32:007.9[facility] KmfphbbHNNZQIJZNC8644-57-88 09:32:002.90[facility] UguwxveCYTHUWNUPO9702-04-82 09:32:005.7[facility] HRHMQGYMBU5516-40-03 09:32:0080[facility] PkjrqjeNTAKDBYNPC1070-13-11 09:32:007.0 [facility] GbwatonJISOPXWCQP8923-89-76 09:32:001.13[facility] HermannIMMUNOLOGY 2017-12-17 09:32:000.83[facility] KaxjjsoVWXSWUGKRQ0184-87-72 09:32:000.85[facility] QlfgyanLMQKHXEKXW6179-68-32 09:32:000.48[facility] UmjrtpcFSHFHZXDOU5059-41-84 09:32:003.72[facility] FrmgzzkLAMKJDZCXE9935-87-08 09:32:0011.8[facility] NJGQLRONCJ3707-50-57 09:32:0016.2[facility] DnimmycUIDXZDABCS7921-42-12 09:32:00 12.1[facility] HieushuVWODXCYMQP4872-89-98 09:32:006.8[facility] HermannIMMUNOLOGY 2017-12-17 09:32:0053.1[facility] OromjpwRETTRFJXEM3560-92-62 09:32:0091[facility] HpphtdcQKUGYRQKUF5756-92-92 09:32:0029[facility] ZghfkweAXGNSMNLJY9580-92-75 09:32:00Negative (12/17/17 4:32 AM)[facility] OxadkdyALVAEVSBYL1400-50-74 09:32:00 Negative (12/17/17 4:32 AM)[facility] KafozavNTDQLECGYS0494-67-18 09:32:00Negative *NA*(12/17/17 4:32 AM)[facility] YoaixkeZQBLCKBNRQ4646-13-51 09:32:00<3.1 [facility] YfwltuqQFHGGHRZSG4931-76-73 09:32:00Negative *NA*(12/17/17 4:32 AM) [facility] NnetmoaNWVNIVCYUW0071-79-11 09:32:00Negative (12/17/17 4:32 AM)[facility] JmrpzheUPLNWLGBCH3635-75-59 09:32:003.42[facility] CtakqudZQMPMPOZUX7335-43-52 09:32:80836.40[facility] UxhqrvkXPMEBLZOWG4765-57-51 09:32:0059.41[facility] FFBIZUVBDH6795-06-50 09:32:00Negative (12/17/17 4:32 AM)[facility] VTGGKXHOWO3776-11-54 09:32:00<10[facility] IqbrtkcQMMUBHXNGA3783-57-58 09:32:00 1+ *ABN*(12/17/17 4:32 AM)[facility] KewvxlkWOTVZTECKK0490-67-17 09:32:000.2 [facility] RfflracMSXOIHZJPO3643-05-80 09:32:000.6[facility]annHEMATOLOGY 2017-12-17 09:32:001.0[facility] ZqeqkzsBRISJCZDEH2465-15-94 09:32:003.9[facility] NgosswzIOAEARQBQT4943-01-85 09:32:000.6[facility] IkasgedMYJXNHOLQZ0485-50-60 09:32:002.7[facility] NkhibkgMBRSGFMKFZ1622-78-16 09:32:0010.4[facility] ZFCVAWUUDQ5110-49-17 09:32:0018.1[facility] FbaklisALPNUHLVVM1333-22-20 09:32:00 68.2[facility] DolxdcyGDZQMOHYCL0116-11-03 09:32:54932Xcwvjsgu HermannHEMATOLOGY 2017-12-17 09:32:0014.3[facility] TxyejefWIEMWPSCEN2933-46-23 09:32:008.0[facility] BjaoffoELWRSRGZCJ3266-64-60 09:32:00 Test Item Value Reference Range Interpretation Comments MCH (test code = MCH) 27.4 pg 27.0-31.0 [facility] HxrmfjwFPOXTFIGZO0088-50-13 09:32:0078.6[facility] HermannHEMATOLOGY 2017-12-17 09:32:0022.8[facility] MniuknkRDQKZMKGDO7187-50-72 09:32:0034.9[facility] MgwlnsgDCVCOCJAMC1654-72-06 09:32:007.9[facility] JkthxrvJVBDBHRGUR8813-24-95 09:32:002.90[facility] VipsatkRLAOXERRUC4339-71-86 09:32:005.7[facility] DCMEWPYOAY0581-88-00 09:32:0080[facility] UncmifqPDMQVQBMFW1016-90-32 09:32:007.0 [facility] BozvgjvUVKEJMDGTZ7351-96-52 09:32:001.13[facility] HermannIMMUNOLOGY 2017-12-17 09:32:000.83[facility] HlzabrlROOYBEXBCN6822-87-42 09:32:000.85[facility] DskzfpzDEJTDFZQOA0917-31-93 09:32:000.48[facility] DdoibxhEWFAAIXIWB9301-53-45 09:32:003.72[facility] JrifndkMNWMTSNOCB2429-91-69 09:32:0011.8[facility] AFSYZVUYWU6357-49-18 09:32:0016.2[facility] VbkivquHLSSPMCGVS8530-75-05 09:32:00 12.1[facility] RbxhcmvUSVFZUEADY4379-26-74 09:32:006.8[facility] HermannIMMUNOLOGY 2017-12-17 09:32:0053.1[facility] EajxyciWCFLUVZCOL3297-28-81 09:32:0091[facility] RfwnbiyIQBSZTTBER4259-83-61 09:32:0029[facility] LbjumaqOHHMTYASQJ2964-27-02 09:32:00Negative (12/17/17 4:32 AM)[facility] SrolxduUNWVALITAR8328-28-68 09:32:00 Negative (12/17/17 4:32 AM)[facility] MidfsmhNKBYTDYEQW2854-16-68 09:32:00Negative *NA*(12/17/17 4:32 AM)[facility] JlrxztnSFTVUJNPDR6554-68-89 09:32:00<3.1 [facility] YahovjaIHDELNVRPX7759-47-14 09:32:00Negative *NA*(12/17/17 4:32 AM) [facility] TxhyfydTUQARTHNOB2703-53-58 09:32:00Negative (12/17/17 4:32 AM)[facility] KnfsvcbVHGHTDTEXC0034-10-59 09:32:003.42[facility] GajitniMGWECTXWGT1195-85-83 09:32:48302.40[facility] TtczjldTWUNPWHUEV5538-05-71 09:32:0059.41[facility] VSOHUZSWIA0907-00-78 09:32:00Negative (12/17/17 4:32 AM)[facility] BAJOCRKAJP4829-77-12 09:32:00<10[facility] LnqwnyuENGDGWKYYS9563-77-93 09:32:00 1+ *ABN*(12/17/17 4:32 AM)[facility] PncqilyTBCZERHVCN1609-05-70 09:32:000.2 [facility] SgcrvwgICUEDMEDQO3895-80-45 09:32:000.6[facility] HermannHEMATOLOGY 2017-12-17 09:32:001.0[facility] TobzwimFHWHXUXMSD7001-19-32 09:32:003.9[facility] JbarzhqUCUITKSLCV4846-49-07 09:32:000.6[facility] FodrczbXXNQYBJXLO6350-12-20 09:32:002.7[facility] PrnihzbFOWYRTKOJM9678-10-12 09:32:0010.4[facility] WZZSHXXIKI7350-17-88 09:32:0018.1[facility] CdlbzzfYFUKELYPWT8665-03-46 09:32:00 68.2[facility] HompmmnRZYLCDPZZS2431-68-94 09:32:57163Fqhfvxew HermannHEMATOLOGY 2017-12-17 09:32:0014.3[facility] PzsthigXKSHRYBEQT6352-80-07 09:32:008.0[facility] IsgxdsiHSAXWMEADT4382-39-15 09:32:00 Test Item Value Reference Range Interpretation Comments MCH (test code = MCH) 27.4 pg 27.0-31.0 [facility] SkakqkfGJYRZNPHVA2606-10-47 09:32:0078.6[facility] HermannHEMATOLOGY 2017-12-17 09:32:0022.8[facility] WiwghkcDWMAFKMWCN2250-86-98 09:32:0034.9[facility] ZoeygvlUBKQWQGSLC8082-54-03 09:32:007.9[facility] VgovxnjMKOWVVIJAO0263-03-13 09:32:002.90[facility] DkazhadACGTDUOBCQ0695-78-26 09:32:005.7[facility] QDDZPYNNLN3080-42-99 09:32:0080[facility] CpxqsdsSCFOFVLLHA4713-72-32 09:32:007.0 [facility] LrplpidBUSUEUQWBG2691-16-86 09:32:001.13[facility] HermannIMMUNOLOGY 2017-12-17 09:32:000.83[facility] GpictobPLKYCGPCIE5800-39-73 09:32:000.85[facility] CjlsofyTUGPUUZHKP0338-12-23 09:32:000.48[facility] IxtvrwnMWGBMBHVAA7207-35-78 09:32:003.72[facility] ZholnbuZKOIOTBPDW9236-02-03 09:32:0011.8[facility] IQTNWLQDZB1090-34-41 09:32:0016.2[facility] YqndsapZZZYRXXDOZ7658-49-55 09:32:00 12.1[facility] EllbaheCFEJZBHAOD8089-72-24 09:32:006.8[facility] HermannIMMUNOLOGY 2017-12-17 09:32:0053.1[facility] SvipwdkBIRKSLZZHZ0716-70-87 09:32:0091[facility] LdevetwKLOWDYWTXK0050-23-70 09:32:0029[facility] SiuzldfCWIZIKTTGS2569-94-12 09:32:00Negative (12/17/17 4:32 AM)[facility] BkfesqaDBXDSFHJZD3067-49-27 09:32:00 Negative (12/17/17 4:32 AM)[facility] RwtfqrtVVUJJEZMCF7653-73-82 09:32:00Negative *NA*(12/17/17 4:32 AM)[facility] TxmdlyyMKZSTHMXPS9956-53-04 09:32:00<3.1 [facility] RpjqvfgICNYKXXEMJ7488-91-18 09:32:00Negative *NA*(12/17/17 4:32 AM) [facility] DpqrmojMDLIOKXVMN2804-92-69 09:32:00Negative (12/17/17 4:32 AM)[facility] NifpztoNVKUIZRVPM5448-89-25 09:32:003.42[facility] QcwuvvjDJXSBWCTCX5164-50-83 09:32:26381.40[facility] YmobehjOBZQSBQVHL9738-26-65 09:32:0059.41[facility] CTEFHKLDXN1257-89-89 09:32:00Negative (12/17/17 4:32 AM)[facility] IMSMOLNDCU6394-66-62 09:32:00<10[facility] HermannANEMIA IFPFT0760-94-87 22:29:0012[facility] HermannANEMIA RDKWC8174-94-68 22:29:08582Dmygixvl [facility] ANEMIA VNMOX5393-80-10 22:29:20414Qxcihzpn HermannANEMIA MSWIO6372-25-56 22:29:0034[facility] HermannANEMIA BFRVG7964-71-29 22:29:52092Rmlhjotq [facility] ANEMIA JIBPZ6271-95-24 22:29:45091Mzfropaf HermannANEMIA XJSWA0029-80-28 22:29:0019.0[facility] HermannCHEM FKAPP6648-55-86 22:29:0012.3[facility] PARATHYROID MQVDYID4327-14-19 22:29:91173.7[facility] HermannANEMIA STUDY 2017-12-15 22:29:0012Mem[facility] HermannANEMIA ODIGI8060-69-16 22:29:60476Mngnuvkk HermannANEMIA ZCMYO7980-91-73 22:29:16208Mortpxph HermannANEMIA HOIYY7902-11-76 22:29:0034[facility] HermannANEMIA NHAKJ8258-09-00 22:29:48944Pborvcnv [facility] ANEMIA WXITH4853-36-16 22:29:60186Ieghqrme HermannANEMIA FARJY8610-27-03 22:29:0019.0[facility] HermannCHEM USKPZ7908-35-45 22:29:0012.3[facility] PARATHYROID XGRKTDS3354-99-46 22:29:24443.7[facility] HermannANEMIA STUDY 2017-12-15 22:29:0012[facility] HermannANEMIA FTSAL5640-53-29 22:29:95266Bekadysi HermannANEMIA JQKZB1018-23-57 22:29:84398Owmsuamm HermannANEMIA UAERT4616-67-81 22:29:0034[facility] HermannANEMIA ECIFN3841-49-67 22:29:33046Pwimtxpj [facility] ANEMIA NBRRD8118-17-95 22:29:95093Vzotujht HermannANEMIA JZPGK9130-66-11 22:29:0019.0[facility] HermannCHEM NNQUG5245-23-41 22:29:0012.3[facility] PARATHYROID WXONUES7386-52-78 22:29:63902.7[facility] SqdnuugSUZPQYXGQQ2587-76-74 20:13:001.5[facility] CnbvydvWOPTEYSKZN0751-43-66 20:13:001.5[facility] NSTFKJSFQZ2103-58-11 20:13:001.5[facility] HermannCARDIAC PJHZBDN1624-50-59 20:12:00<0.02[facility] HermannCARDIAC DXAEXZD3690-37-96 20:12:26113Vbizzigx HermannCARDIAC LSHWZEA6499-08-42 20:12:005.4[facility] HermannCARDIAC ENZYMES 2017-12-15 20:12:00 Test Item Value Reference Range Interpretation Comments CK MB Index (test 1.4 1 See_Comment [Automate d message] The code = CK MB Index) system w [facility] generated this result transmit emerson reference range : <=2.5. The reference range was not used to interpr et this result as erinn l/abnormal. [facility]annCHEM RMMYN4075-55-12 20:12:000.4[facility] HermannCHEM PANEL 2017-12-15 20:12:0014[facility] HermannCHEM OXRJR6404-96-32 20:12:0017[facility] HermannCHEM XJGUP6941-26-53 20:12:99047Saqpysgc HermannCHEM GTKWC0919-45-58 20:12:003.4[facility] HermannCHEM KZJSN4634-52-03 20:12:007.4[facility] HermannCHEM AQUOQ9210-26-40 20:12:00 Test Item Value Reference Range Interpretation Comments B/C Ratio (test code = B/C Ratio) 9 1 - [facility]annCHEM NGSXX0854-48-36 20:12:00 Test Item Value Reference Range Interpretation Comments A/G Ratio (test code = A/G Ratio) 0.8 1 0.7-1.6 [facility]annCHEM NSPNJ9938-62-18 20:12:004.0[facility] HermannCARDIAC ENZYMES 2017-12-15 20:12:00<0.02[facility] HermannCARDIAC VAHBUBY7729-12-62 20:12:97567 [facility]annCARDIAC XATLEKE2101-73-16 20:12:005.4[facility] HermannCARDIAC WRBQFAO7503-23-01 20:12:00 Test Item Value Reference Range Interpretation Comments CK MB Index (test 1.4 1 See_Comment [Automate d message] The code = CK MB Index) system w [facility] generated this result transmit emerson reference range : <=2.5. The reference range was not used to interpr et this result as erinn l/abnormal. [facility]annCHEM OJGOO9211-71-63 20:12:000.4[facility]annCHEM PANEL 2017-12-15 20:12:0014[facility] HermannCHEM EHVKF7626-49-13 20:12:0017[facility] HermannCHEM IRIOH3885-53-63 20:12:08852Xjseatgz HermannCHEM ATXXR4063-24-75 20:12:003.4[facility]annCHEM XBCGC4312-86-14 20:12:007.4[facility]annCHEM INIFF2664-72-49 20:12:00 Test Item Value Reference Range Interpretation Comments B/C Ratio (test code = B/C Ratio) 9 1 - [facility]annCHEM MJUEX3289-17-39 20:12:00 Test Item Value Reference Range Interpretation Comments A/G Ratio (test code = A/G Ratio) 0.8 1 0.7-1.6 [facility]annCHEM TDZCY0643-28-95 20:12:004.0[facility]annCARDIAC ENZYMES 2017-12-15 20:12:00<0.02[facility]annCARDIAC WAALXWL8261-62-87 20:12:45865 [facility]annCARDIAC KQZJTDM3771-37-42 20:12:005.4[facility] HermannCARDIAC PGNEQAJ9081-15-15 20:12:00 Test Item Value Reference Range Interpretation Comments CK MB Index (test 1.4 1 See_Comment [Automate d message] The code = CK MB Index) system w [facility] generated this result transmit emerson reference range : <=2.5. The reference range was not used to interpr et this result as erinn l/abnormal. [facility]annCHEM WFUBB5453-02-27 20:12:000.4[facility]annCHEM PANEL 2017-12-15 20:12:0014[facility] HermannCHEM QRXBV7559-30-99 20:12:0017[facility]annCHEM PXZFV5001-04-55 20:12:10044Ksgmcfuh HermannCHEM ZXNZG4975-54-36 20:12:003.4[facility] HermannCHEM GEXLM0859-03-11 20:12:007.4[facility] HermannCHEM SKLKG4178-53-87 20:12:00 Test Item Value Reference Range Interpretation Comments B/C Ratio (test code = B/C Ratio) 9 1 6-25 [facility]annCHEM FRYDW9904-24-77 20:12:00 Test Item Value Reference Range Interpretation Comments A/G Ratio (test code = A/G Ratio) 0.8 1 0.7-1.6 [facility]annCHEM WIFQE3278-60-74 20:12:004.0[facility] HermannCARDIAC ENZYMES 2017-12-15 16:39:00<0.02[facility] HermannCARDIAC ZGXCWDB8423-34-76 16:39:92181 [facility]annCARDIAC NPMKCLN8914-53-46 16:39:004.8[facility] HermannCARDIAC QWXUYRX2434-45-65 16:39:00 Test Item Value Reference Range Interpretation Comments CK MB Index (test 1.4 1 See_Comment [Automate d message] The code = CK MB Index) system [employer]Machine generated this result transmit emerson reference range : <=2.5. The reference range was not used to interpr et this result as erinn l/abnormal. [facility]annCARDIAC HTWHRCM5264-18-21 16:39:00<0.02[facility] CARDIAC XOMCCEK4633-28-85 16:39:71299Aifkcdiy HermannCARDIAC YWTXMWO1781-45-06 16:39:004.8[facility] HermannCARDIAC KBAQDEI1658-98-80 16:39:00 Test Item Value Reference Range Interpretation Comments CK MB Index (test 1.4 1 See_Comment [Automate d message] The code = CK MB Index) system Feedback-Machine generated this result transmit emerson reference range : <=2.5. The reference range was not used to interpr et this result as erinn l/abnormal. [facility]annCARDIAC GPPUIII2570-12-22 16:39:00<0.02[facility] CARDIAC KFHMEGH0674-97-83 16:39:09993Zwqrnytt HermannCARDIAC MQXCOCD9237-76-62 16:39:004.8[facility] HermannCARDIAC FDXDJEW5233-18-40 16:39:00 Test Item Value Reference Range Interpretation Comments CK MB Index (test 1.4 1 See_Comment [Automate d message] The code = CK MB Index) system Feedback-Machine generated this result transmit emerson reference range : <=2.5. The reference range was not used to interpr et this result as erinn l/abnormal. [facility]annURINE DWWL5273-76-09 14:38:0020.0[facility]annURINE CHEM 2017-12-15 14:38:0031[facility]annURINE HCAM1584-10-03 14:38:0022[facility]annURINE KXBO8245-82-72 14:38:69194.9[facility]annURINE JWHE8648-17-94 14:38:00 Test Item Value Reference Range Interpretation Comments U Prot/Creat (test code = U 4.35 1 Prot/Creat) [facility]annUR[facility] GLWX4027-47-47 14:38:0056.70[facility]annURINE CHEM 2017-12-15 14:38:85899Jwiadgzi HermannURINE JMWI0564-32-29 14:38:00None Seen (12/15/17 8:38 AM)[facility]UR[facility] PGFJ9808-62-57 14:38:0020.0[facility]annURINE PRXO5098-12-69 14:38:0031[facility]annURINE SWHP1234-09-16 14:38:0022[facility]annURINE OOJS5678-72-79 14:38:52200.9[facility] URINE HUNJ1784-45-43 14:38:00 Test Item Value Reference Range Interpretation Comments U Prot/Creat (test code = U 4.35 1 Prot/Creat) [facility] HLJE5783-07-25 14:38:0056.70[facility]annURINE CHEM 2017-12-15 14:38:55438Wgainptk HermannURINE EQJB6680-76-26 14:38:00None Seen (12/15/17 8:38 AM)[facility]annUR[facility] NYIV9985-42-86 14:38:0020.0[facility]annURINE PNFA4882-89-42 14:38:0031[facility]annURINE YJKB8447-27-30 14:38:0022[facility]annURINE GFDP3408-43-42 14:38:86280.9[facility] URINE OGUM2734-45-33 14:38:00 Test Item Value Reference Range Interpretation Comments U Prot/Creat (test code = U 4.35 1 Prot/Creat) [facility] ZKYW4252-43-79 14:38:0056.70[facility]annURINE CHEM 2017-12-15 14:38:73482Jylytcgm [facility]annURINE DXZP7986-30-96 14:38:00None Seen (12/15/17 8:38 AM)[facility]annUR[facility] AND TWJQW4877-56-62 14:33:00Performed *NA*(12/15/17 8:33 AM)[facility]UR[facility] AND WJMSR8823-10-17 14:33:0050[facility]annUR[facility] AND FQWNL7356-17-16 14:33:00Negative (12/15/17 8:33 AM)[facility] AND RMSUA0009-64-83 14:33:00Small *ABN*(12/15/17 8:33 AM)[facility] AND BVQQU6978-18-13 14:33:00Negative (12/15/17 8:33 AM)[facility]annUR[facility] AND YDONM8685-38-02 14:33:003[facility]annUR[facility] AND STOOL 2017-12-15 14:33:001[facility]annUR[facility] AND RHRBW5146-13-06 14:33:00Slight *ABN*(12/15/17 8:33 AM)[facility] AND XYPQN9961-40-79 14:33:00 Test Item Value Reference Range Interpretation Comments UA Spec Grav (test code = UA Spec 1.008 1 Grav) [facility] AND VTWWK5579-92-03 14:33:00 Test Item Value Reference Range Interpretation Comments UA pH (test code = UA pH) 5.0 1 5.0-8.0 [facility] AND XJMXG7860-61-00 14:33:00Negative *NA*(12/15/17 8:33 AM) [facility] AND KPDGW9360-41-65 14:33:00Performed *NA*(12/15/17 8:33 AM) [facility] AND VPNYB3471-88-35 14:33:0050[facility]annUR[facility] AND GWUNC5061-63-50 14:33:00Negative (12/15/17 8:33 AM)[facility] AND STOOL 2017-12-15 14:33:00Small *ABN*(12/15/17 8:33 AM)[facility] AND STOOL 2017-12-15 14:33:00Negative (12/15/17 8:33 AM)[facility] AND STOOL 2017-12-15 14:33:003[facility]annUR[facility] AND MCCMT8600-75-17 14:33:001[facility]ann[facility] [id number] 14:33:00Slight *ABN*(12/15/17 8:33 AM)[facility] [id number] 14:33:00 Test Item Value Reference Range Interpretation Comments UA Spec Grav (test code = UA Spec 1.008 1 Grav) [facility] [id number] 14:33:00 Test Item Value Reference Range Interpretation Comments UA pH (test code = UA pH) 5.0 1 5.0-8.0 [facility] [id number] 14:33:00Negative *NA*(12/15/17 8:33 AM) [facility] [id number] 14:33:00Performed *NA*(12/15/17 8:33 AM) [facility] [id number] 14:33:0050[facility] [id number] 14:33:00Negative (12/15/17 8:33 AM)[facility] 2017-12-15 14:33:00Small *ABN*(12/15/17 8:33 AM)[facility] 2017-12-15 14:33:00Negative (12/15/17 8:33 AM)[facility] 2017-12-15 14:33:003[facility] [id number] 14:33:001[facility] [id number] 14:33:00Slight *ABN*(12/15/17 8:33 AM)[facility] [id number] 14:33:00 Test Item Value Reference Range Interpretation Comments UA Spec Grav (test code = UA Spec 1.008 1 Grav) [facility] [id number] 14:33:00 Test Item Value Reference Range Interpretation Comments UA pH (test code = UA pH) 5.0 1 5.0-8.0 [facility] [id number] 14:33:00Negative *NA*(12/15/17 8:33 AM) [facility] [id number] 12:48:00 Test Item Value Reference Range Interpretation Comments CK MB Index (test 1.3 1 See_Comment [Automate d message] The code = CK MB Index) system w [employer] generated this result transmit emerson reference range : <=2.5. The reference range was not used to interpr et this result as erinn l/abnormal. [facility] [id number] 12:48:099404Kdhnoofe [facility]annCARDIAC [id number] 12:48:86371Tkfbgexr [facility] [id number] 12:48:00 4.8[facility] [id number] 12:48:00<0.02[facility] [id number] 12:48:00 Test Item Value Reference Range Interpretation Comments A/G Ratio (test code = A/G Ratio) 0.8 1 0.7-1.6 [facility] [id number] 12:48:007.0[facility] PANEL 2017-12-15 12:48:003.9[facility] [id number] 12:48:003.1[facility] [id number] 12:48:000.4[facility] [id number] 12:48:47374Zzvecodf HermannCHEM [id number] 12:48:0015[facility] [id number] 12:48:0013[facility] [id number] 12:48:00 Test Item Value Reference Range Interpretation Comments B/C Ratio (test code = B/C Ratio) 9 1 6-25 [facility] [id number] 12:48:001.17[facility] ENZYMES 2017-12-15 12:48:00 Test Item Value Reference Range Interpretation Comments CK MB Index (test 1.3 1 See_Comment [Automate d message] The code = CK MB Index) system w [employer] generated this result transmit emerson reference range : <=2.5. The reference range was not used to interpr et this result as erinn l/abnormal. [facility] [id number] 12:48:318470Pchagyhm HermannCARDIAC [id number] 12:48:60385Rzokizvg [facility]CARD[facility] [id number] 12:48:00 4.8[facility] [id number] 12:48:00<0.02[facility] [id number] 12:48:00 Test Item Value Reference Range Interpretation Comments A/G Ratio (test code = A/G Ratio) 0.8 1 0.7-1.6 [facility] [id number] 12:48:007.0[facility] PANEL 2017-12-15 12:48:003.9[facility] [id number] 12:48:003.1[facility] [id number] 12:48:000.4[facility] [id number] 12:48:21909Tbvghjsh HermannCHEM [id number] 12:48:0015[facility] [id number] 12:48:0013[facility] [id number] 12:48:00 Test Item Value Reference Range Interpretation Comments B/C Ratio (test code = B/C Ratio) 9 1 6-25 [facility] [id number] 12:48:001.17[facility] ENZYMES 2017-12-15 12:48:00 Test Item Value Reference Range Interpretation Comments CK MB Index (test 1.3 1 See_Comment [Automate d message] The code = CK MB Index) system w [facility] generated this result transmit emerson reference range : <=2.5. The reference range was not used to interpr et this result as erinn l/abnormal. [facility] [id number] 12:48:881207Zoxfclsp HermannCARDIAC [id number] 12:48:70569Vrahyddc HermannCARDIAC [id number] 12:48:00 4.8[facility] [id number] 12:48:00<0.02[facility] [id number] 12:48:00 Test Item Value Reference Range Interpretation Comments A/G Ratio (test code = A/G Ratio) 0.8 1 0.7-1.6 [facility] [id number] 12:48:007.0[facility] PANEL 2017-12-15 12:48:003.9[facility] [id number] 12:48:003.1[facility] [id number] 12:48:000.4[facility] [id number] 12:48:64797Qlihmyzy HermannCHEM [id number] 12:48:0015[facility] [id number] 12:48:0013[facility] [id number] 12:48:00 Test Item Value Reference Range Interpretation Comments B/C Ratio (test code = B/C Ratio) 9 1 6-25 [facility] [id number] 12:48:001.17[facility]
[2021-08-25 23:55] LABS: Protime INR 0.97
[2021-08-26 00:13] LABS: ALT/SGPT 15 U/L (12-78); AST/SGOT 8 U/L (15-37); Albumin 3.5 g/dL (3.4-5.0); Alkaline Phosphatase 109 U/L (45-117); BUN Blood Urea Nitrogen 34 mg/dL (7-18); Bicarbonate 24 mmol/L (21-32); Bilirubin Direct < 0.1 mg/dL (0-0.2); Bilirubin Total 0.3 mg/dL (0.2-1.0); Glucose Level 94 mg/dL (74-106); Magnesium 2.3 mg/dL (1.8-2.4); NT PRO-BNP 16189 pg/mL (<125); Potassium 4.4 mmol/L (3.5-5.1); Protein, Total 7.3 g/dL (6.4-8.2); Sodium Level 138 mmol/L (136-145); Troponin (Emerg Dept Use Only) 0.02 ng/mL (0.0-0.045)
--- NOTE | 2021-08-26 00:24 | EDPHYS ---
Physician Documentation [facility] Name: Alex Cagle Age: 61 yrs Sex: Male : 1960 Arrival Date: 08/25/2021 Time: 21:10 Bed 7 Private MD: LEN Physician Ambrocio Alonso HPI: 08/25 23:17 This 61 yrs old Male presents to ER via Wheelchair with complaints of jarrell Abnormal Lab Results. 23:17 potassium 13???. Onset: The symptoms/episode began/occurred today. Severity of jarrell symptoms: At their worst the symptoms were very mild in the emergency department the symptoms are unchanged. The patient has experienced similar episodes in the past, a few times. Historical: - Allergies: 23:09 NKA; df1 - PMHx: 23:09 CHF; Diabetes - NIDDM; ESRD; Hypertension; insomnia; df1 - PSHx: 23:09 right sholder; bilateral knee repairs; df1 - Immunization history:: Adult Immunizations up to date, Client reports receiving the 2nd dose of the Covid vaccine. - Social history:: Smoking status: Patient denies any tobacco usage or history of. - Family history:: not pertinent. ROS: 23:17 Constitutional: Negative for fever, chills, and weight loss, Eyes: Negative for injury, jarrell pain, redness, and discharge, ENT: Negative for injury, pain, and discharge, Neck: Negative for injury, pain, and swelling, Cardiovascular: Negative for chest pain, palpitations, and edema, Respiratory: Negative for shortness of breath, cough, wheezing, and pleuritic chest pain, Abdomen/GI: Negative for abdominal pain, nausea, vomiting, diarrhea, and constipation, Back: Negative for injury and pain, : Negative for injury, bleeding, discharge, and swelling, MS/Extremity: Negative for injury and deformity, Skin: Negative for injury, rash, and discoloration, Neuro: Negative for headache, weakness, numbness, tingling, and seizure, Psych: Negative for depression, anxiety, suicide ideation, homicidal ideation, and hallucinations, Allergy/Immunology: Negative for hives, rash, and allergies, Endocrine: Negative for neck swelling, polydipsia, polyuria, polyphagia, and marked weight changes, Hematologic/Lymphatic: Negative for swollen nodes, abnormal bleeding, and unusual bruising. Exam: 23:17 Constitutional: This is a well developed, well nourished patient who is awake, alert, jarrell and in no acute distress. Head/Face: Normocephalic, atraumatic. Eyes: Pupils equal round and reactive to light, extra-ocular motions intact. Lids and lashes normal. Conjunctiva and sclera are non-icteric and not injected. Cornea within normal limits. Periorbital areas with no swelling, redness, or edema. ENT: Nares patent. No nasal discharge, no septal abnormalities noted. Tympanic membranes are normal and external auditory canals are clear. Oropharynx with no redness, swelling, or masses, exudates, or evidence of obstruction, uvula midline. Mucous membranes moist. Neck: Trachea midline, no thyromegaly or masses palpated, and no cervical lymphadenopathy. Supple, full range of motion without nuchal rigidity, or vertebral point tenderness. No Meningismus. Chest/axilla: Normal chest wall appearance and motion. Nontender with no deformity. No lesions are appreciated. Cardiovascular: Regular rate and rhythm with a normal S1 and S2. No gallops, murmurs, or rubs. Normal PMI, no JVD. No pulse deficits. Respiratory: Lungs have equal breath sounds bilaterally, clear to auscultation and percussion. No rales, rhonchi or wheezes noted. No increased work of breathing, no retractions or nasal flaring. Abdomen/GI: Soft, non-tender, with normal bowel sounds. No distension or tympany. No guarding or rebound. No evidence of tenderness throughout. Back: No spinal tenderness. No costovertebral tenderness. Full range of motion. Male : Normal genitalia with no discharge or lesions. Skin: Warm, dry with normal turgor. Normal color with no rashes, no lesions, and no evidence of cellulitis. MS/ Extremity: Pulses equal, no cyanosis. Neurovascular intact. Full, normal range of motion. Neuro: Awake and alert, GCS 15, oriented to person, place, time, and situation. Cranial nerves II-XII grossly intact. Motor strength 5/5 in all extremities. Sensory grossly intact. Cerebellar exam normal. Normal gait. Psych: Awake, alert, with orientation to person, place and time. Behavior, mood, and affect are within normal limits. 23:36 ECG was reviewed by the Attending Physician. [facility] Vital Signs: 21:46 BP 145 / 84; Pulse 80; Resp 16; Temp 99.0; Pulse Ox 95% on R/A; Weight 98 kg; Height 5 dh4 ft. 7 in. (170.18 cm); 23:30 BP 157 / 77; Pulse 85; Resp 18; Pulse Ox 97% on R/A; Pain 0/10; df1 21:46 Body Mass Index 33.84 (98.00 kg, 170.18 cm) 4 MDM: 22:00 Patient medically screened. [facility] 23:19 Data reviewed: vital signs, nurses notes, lab test result(s), EKG, radiologic studies. [facility] Data interpreted: surveillance system monitor: rate is 80 beats/min, Pulse oximetry: on room air is 95 %. Test interpretation: by ED physician or midlevel provider: ECG, plain radiologic studies. Counseling: I had a detailed discussion with the patient and/or guardian regarding: the historical points, exam findings, and any diagnostic results supporting the discharge/admit diagnosis, lab results, radiology results, the need for outpatient follow up, for definitive care, an signwriter. 08/25 22:58 Order name: Basic Metabolic Panel [facility] 08/25 22:58 Order name: CBC with Diff [facility] 08/25 22:58 Order name: LFT's [facility] 08/25 22:58 Order name: Magnesium [facility] 08/25 22:58 Order name: NT PRO-BNP [facility] 08/25 22:58 Order name: PT-INR; Complete Time: 00:06 [facility] 08/25 22:58 Order name: Troponin (emerg Dept Use Only); Complete Time: 00:23 [facility] 08/25 22:58 Order name: XRAY Chest (1 view) [facility] 08/25 22:58 Order name: EKG; Complete Time: 22:59 [facility] 08/25 22:58 Order name: Basic Metabolic Panel; Complete Time: 00:23 [facility] 08/25 22:58 Order name: CBC with Automated Diff [facility] 08/25 22:58 Order name: Liver (Hepatic) Function; Complete Time: 00:23 [facility] 08/25 22:58 Order name: Magnesium; Complete Time: 00:23 [facility] 08/25 22:58 Order name: NT PRO-BNP; Complete Time: 00:23 [facility] 08/25 22:58 Order name: Cardiac monitoring; Complete Time: 23:40 [facility] 08/25 22:58 Order name: EKG - Nurse/Tech; Complete Time: 23:29 [facility] 08/25 22:58 Order name: IV Saline Lock; Complete Time: 23:40 [facility] 08/25 22:58 Order name: Labs collected and sent; Complete Time: 23:40 [facility] 08/25 22:58 Order name: O2 Per Protocol; Complete Time: 23:40 [facility] 08/25 22:58 Order name: O2 Sat Monitoring; Complete Time: 23:40 [facility] EC:36 Rate is 69 beats/min. Rhythm is regular. QRS [place] is Normal. TN interval is normal. QRS jarrell interval is normal. QT interval is normal. No Q waves. T waves are Normal. No ST changes noted. Clinical impression: NSR w/ Non-specific ST/T Changes and No evidence of ischemia. Interpreted by me. Reviewed by me. Administered Medications: No medications were administered Disposition Summary: 08/26/21 00:23 Discharge Ordered Location: Home jarrell Problem: new jarrell Symptoms: have improved jarrell Condition: Stable jarrell Diagnosis - End stage renal disease - on HD M,W,F jarrell Followup: jarrell - With: Private Physician - When: 1 - 2 days - Reason: Recheck today's complaints, Continuance of care, Re-evaluation by your physician Followup: jarrell - With: - When: 1 - 2 days - Reason: Recheck today's complaints, Re-evaluation by your physician Discharge Instructions: - Discharge Summary Sheet jarrell - Dialysis jarrell - Eating Plan for Dialysis, [id number] jarrell Forms: - Medication Reconciliation Form jarrell - Thank You Letter jarrell - Antibiotic Education jarrell - Prescription Opioid Use jarrell Signatures: Dispatcher [employer] Ambrocio Birch MD MD cha Furlich, Dawn df1
--- NOTE | 2021-08-26 00:24 | ER ---
Nurse's Notes [facility] Name: Alex Cagle Age: 61 yrs Sex: Male : 1960 Arrival Date: 08/25/2021 Time: 21:10 Bed 7 Private MD: Diagnosis: End stage renal disease-on HD M,W,F Presentation: 08/25 23:07 Chief complaint: Patient states: Dialysis M,W,F states potassium was elevated today at df1 dialysis. Coronavirus screen: Vaccine status: Patient reports receiving the 2nd dose of the covid vaccine. Client denies travel out of the [place] in the last 14 days. At this time, the client does not indicate any symptoms associated with coronavirus-19. Ebola Screen: Patient negative for fever greater than or equal to 101.5 degrees Fahrenheit, and additional compatible Ebola Virus Disease symptoms Patient denies exposure to infectious person. Patient denies travel to an Ebola-affected area in the 21 days before illness onset. Initial Sepsis Screen: Does the patient meet any 2 criteria? No. Patient's initial sepsis screen is negative. Does the patient have a suspected source of infection? No. Patient's initial sepsis screen is negative. Risk Assessment: Do you want to hurt yourself or someone else? Patient reports no desire to harm self or others. Onset of symptoms was August 25, 2021 at 15:00. 23:07 Method Of Arrival: Wheelchair df1 23:07 Acuity: DEJAN 3 df1 Triage Assessment: 23:09 General: Appears in no apparent distress. Behavior is calm, cooperative. Pain: Denies df1 pain. Historical: - Allergies: 23:09 NKA; df1 - PMHx: 23:09 CHF; Diabetes - NIDDM; ESRD; Hypertension; insomnia; df1 - PSHx: 23:09 right sholder; bilateral knee repairs; df1 - Immunization history:: Adult Immunizations up to date, Client reports receiving the 2nd dose of the Covid vaccine. - Social history:: Smoking status: Patient denies any tobacco usage or history of. - Family history:: not pertinent. Screenin:10 Abuse screen: Denies threats or abuse. Nutritional screening: No deficits noted. df1 Tuberculosis screening: No symptoms or risk factors identified. Fall Risk None identified. Assessment: 08/26 00:37 General: Appears in no apparent distress. Behavior is calm, cooperative. Pain: Denies df1 pain. Neuro: No deficits noted. Cardiovascular: No deficits noted. Respiratory: No deficits noted. GI: No deficits noted. : No deficits noted. EENT: No deficits noted. Derm: No deficits noted. Musculoskeletal: No deficits noted. Vital Signs: 08/25 21:46 BP 145 / 84; Pulse 80; Resp 16; Temp 99.0; Pulse Ox 95% on R/A; Weight 98 kg; Height 5 4 ft. 7 in. (170.18 cm); 23:30 BP 157 / 77; Pulse 85; Resp 18; Pulse Ox 97% on R/A; Pain 0/10; df1 21:46 Body Mass Index 33.84 (98.00 kg, 170.18 cm) 4 ED Course: 21:10 Patient arrived in ED. [facility] 22:00 Ambrocio Alonso MD is Attending Physician. jarrell 22:21 Bridgett Hannon is Primary Nurse. kc 23:09 Triage completed. df1 23:09 Arm band placed on right wrist. df1 23:10 Patient has correct armband on for positive identification. Placed in gown. Bed in low df1 position. Call light in reach. Side rails up X 1. Adult w/ patient. 23:10 No provider procedures requiring assistance completed. df1 23:21 XRAY Chest (1 view) In Process Unspecified. EDMS 23:30 IV discontinued, intact, bleeding controlled, No redness/swelling at site. Pressure df1 dressing applied. 23:36 Inserted saline lock: 22 gauge in right antecubital area, using aseptic technique. ds4 Blood collected. 08/26 00:23 Constantin Ellison MD is Referral Physician. jarrell Administered Medications: No medications were administered Outcome: 00:23 Discharge ordered by . jarrell 00:37 Discharged to home ambulatory. df1 00:37 Condition: good 00:37 Discharge instructions given to patient, Instructed on discharge instructions, follow up and referral plans. Demonstrated understanding of instructions, follow-up care. 00:38 Patient left the ED. df1 Signatures: Dispatcher [employer] EDCT Ambrocio Alonso MD MD cha Swanson, Donovan 4 Rubens De La Cruz 4 Susan Ventura [facility] Bridgett Hannon kc4 Shayy Adam df1
[2021-08-26 00:49] LABS: Absolute Lymphocytes (CBC) 0.9 K/uL (0.7-4.9); Hematocrit 30.2 % (39.6-49.0); Lymphocytes % 20.3 % (15.3-44.8); MPV 7.8 fL (7.6-11.3); RBC Red Blood Cell Count 3.41 M/uL (4.33-5.43)
[2021-08-26 01:53] VITALS: TEMP 99
[2021-08-26 01:54] VITALS: BP 157/77; O2SAT 97
--- NOTE | 2021-08-26 08:34 | RAD REPORT ---
EXAM DESCRIPTION: RAD - Chest Single View - 08/25/2021 11:21 pm CLINICAL HISTORY: COUGH Chest pain. COMPARISON: Chest Single View dated 07/01/2021; Chest Single View dated 05/20/2021; Chest Single View dated 05/18/2021; Chest Single View dated 01/01/2021 FINDINGS: Portable technique limits examination quality. Mild interstitial pulmonary edema. The heart is moderately enlarged in size. No displaced fractures. IMPRESSION: Mild CHF.
== END 2021-08-26 00:38 | disposition home or self-care (01) ==
LOC: ER 21:05
DX: E11.22 Type 2 diabetes mellitus with diabetic chronic kidney disease (principal); I12.0 Hypertensive chronic kidney disease with stage 5 chronic kidney disease or end stage renal disease; N18.6 End stage renal disease; I50.9 Heart failure, unspecified; Z99.2 Dependence on renal dialysis
CPT/HCPCS: 36415; 71045; 80048; 80076; 83735; 83880; 84484; 85025; 85610; 93005; 99283

== ENCOUNTER 2021-09-09 16:59 | Emergency (ER) | payer OTHER ==
--- OUTSIDE RECORDS SUMMARY | 2021-09-09 17:59 | XMS REPORT | Continuity of Care Document ---
:1960 Author Organization [facility] t Address [address] [place] [address] [place] [address] Care Team Providers Name Role Phone FLORES Primary Care Physician Unavailable KOLE Attending Clinician Unavailable DESIRAE Attending Clinician Unavailable Esdras CRUZ, Forrest Attending Clinician Forrest OLSEN Attending Clinician Unavailable [facility] Attending Clinician Unavailable Desirae CRUZ Attending Clinician [...] Clinician Mina CRUZ, Deepthi Keita Attending Clinician [phone] Chente CRUZ Attending Clinician Only, Test Attending Clinician Unavailable Robyn AMARAL Attending Clinician CHENTE Attending Clinician Unavailable KOLE Admitting Clinician Unavailable DESIRAE Admitting Clinician Unavailable Sara Ramsey MD Admitting Clinician SHAKIR CLEANING Admitting Clinician Unavailable Shakir Cleaning MD Admitting Clinician Desirae CRUZ Admitting Clinician Payers Payer Name Policy Type Policy Number Effective Date Expiration Date S quan MEDICARE PART A \\T\\ [id number] 2018 B 00:00:00 COMMERCIAL [id number] 2018 NON-CONTRACT 00:00:00 GENERIC Problems Condition Condition Condition Status Onset Resolution Last Treating Co mments Source Name Details Category Date Date Treatment Clinician Date ESRD Diagnosis Active 2019-102020-08-12 Mem oria NEEDING 0 08:39:00 l DIALYSIS, ESRD 00:00: Marlo VOLUME NEEDING 00 OVERLOAD DIALYSIS, VOLUME OVERLOAD Active 08/06/2020 [facility] [place] DR SENT - Diagnosis Active 2019-102020-08-06 Memoria FLUID 0- 16:50:[address] SENT 00:00: [place] nn - FLUID 00 OVERLOAD Active 08/06/2020 [facility] [place] DIALYSIS Diagnosis [facility] 2019[facility]2020[facility] 08[facility] l DIALYSIS 00:00: Rafael n ISSUE 00 Active 07/24/2020 [facility] [place] PERITONITI Diagnosis Active 2020-07-09 Memoria S, 07-06 16:32:00 l DIABETES, 00:00: [place] ESRD ON PERITONITI 00 DIALYSIS S, DIABETES, ESRD ON DIALYSIS Active 07/06/2020 [facility] [place] ABD PAIN Diagnosis Active 2020-07-06 emoria 07-06 07:06:00 l ABD PAIN 00:00: Rafael n 00 Active 07/06/2020 [facility] Dyspnea on Dyspnea on Disease Active U nivers exertion exertion 9-13 ity of 00:00: [place] [facility] Dyspnea Dyspnea Disease Active 2019- Univers 9-13 ity of 00:00: [place] 00 Medical Branch WEAKNESS Diagnosis Active 2020-08-04 M emoria AND 05-21 11:45:00 l SWELLING WEAKNESS 00:00: Herm dionne AND 00 SWELLING Active 05/21/2020 [facility] [place] Colon Colon Disease Active Overview: Univer s cancer cancer 805 Formattin ity of screening screening 00:00: [place] of this [place] 00 note Medical might be Branch different from the original. Added automatic ally from request for surgery [id number] ESRD (end ESRD (end Disease Active Uni [...] Added automatic ally from request for surgery [id number] NAUSEA/VOM Diagnosis Active 2020-03-23 Memoria ITING 6-15 01:05:00 l 00:00: [place] NAUSEA/VOM 00 ITING Active 03/23/2020 [facility] [place] Obesity Obesity Disease Active Univers (BMI (BMI 5-27 ity of 30-39.9) 30-39.9) 00:00: [place] 00 Medical Branch FEVER Diagnosis Active 2020-02-26 Mem oria 4-27 11:06:00 l FEVER 00:00: [place] 00 Active 02/03/2020 [facility] [place] Gallbladde Gallbladde Disease Active Overview : Univers r polyp r polyp 2-06 Formattin ity o f 00:00: g of this [place] 00 note Medical might be Branch different from the original. Added automatic ally from request for surgery [id number] AMS, Diagnosis Active 2019-10-31 Mem oria HYPONATREM 10-28 11:04:00 l IA AMS, 00:00: [place] HYPONATREM 00 IA Active 0 [facility] [place] NUMBNESS Diagnosis Active 2019-10-28 M emoria 10-28 20:30:00 l NUMBNESS 00:00: Rafael n 00 Active 10/28/2019 [facility] [place] AMS Diagnosis Active 2018-102019-09-23 Mem oria 1-06 21:56:00 l AMS 10:52: [place] 00 Active 08/14/2019 [facility] [place] PNA Diagnosis Active 2019-04-05 Mem oria 04-05 20:15:00 l PNA 00:00: [place] 00 Active 04/05/2019 [facility] [place] DIZZINES, Diagnosis Active 2019-04-15 Memoria PNEUMONIA, 04-05 21:55:00 l END STAGE 00:00: [place] RENAL DIS DIZZINES, 00 PNEUMONIA, END STAGE RENAL DIS Active 04/05/2019 [facility] ESRD Diagnosis Active 2017-102018-12-14 Mem oria NEEDING 0- 09:50:00 l DIALYSIS, ESRD 00:00: [place] ACUTE NEEDING 00 PULMONARY DIALYSIS, E ACUTE PULMONARY E Active 07/21/[address] Diagnosis Active 2017-102018-07-21 Mem oria REFERRAL 0-13 21:30:00 l 00:00: [place] REFERRAL 00 Active 07/21/2018 [facility] [place] BUSCH Diagnosis Active 2017-102018-07-20 Mem oria REFFERAL 0-12 20:08:00 l 00:00: [place] REFFERAL 00 Active 07/20/2018 [facility] [place] RENAL/DO Diagnosis Active 2018-07-31 M emoria NOT USE 05-23 12:39:00 l FOR RENAL/DO 06:00: Rafael n CHARGES NOT USE 00 F/C NOTES FOR O CHARGES F/C NOTES O Active 05/23/2018 [facility] NEW Diagnosis Active 2018-05-23 Mem oria EVALUATION 05-09 10:28:00 l NEW 00:00: [place] EVALUATION 00 Active 05/09/2018 [facility] HYPERTENSI Diagnosis Active 2018-04-16 Memoria VE 04-14 13:14:00 l URGENCY, 08:00: [place] CHEST PAIN HYPERTENSI 00 VE URGENCY, CHEST PAIN Active 04/14/2018 [facility] CHEST PAIN Diagnosis Active 2018-04-15 Memoria 04-14 01:42:00 l CHEST 08:00: [place] PAIN 00 Active 04/14/2018 [facility] ACUTE Diagnosis Active 2018-03-19 Mem oria DYSPNEA 03-16 13:39:00 l ACUTE 00:00: [place] DYSPNEA 00 Active 03/16/2018 [facility] [place] WEAKNESS Diagnosis Active 2018-03-17 M emoria 03-16 05:41:00 l WEAKNESS 00:00: Rafael n 00 Active 03/16/2018 [facility] [place] ESRD (end ESRD (end Disease Active Uni vers stage stage 4-28 ity of renal renal 00:00: [place] disease) disease) 00 Medica l on on Branch dialysis dialysis IN NEED OF Diagnosis Active 2018-01-22 Memoria DIALYSIS 16 18:51:00 l IN NEED 00:00: [place] OF 00 DIALYSIS Active 01/22/2018 [facility] [place] SOB Diagnosis Active 2017-12-15 Mem oria 12-15 07:37:00 l SOB 00:00: [place] 00 Active 12/15/2017 [facility] [place] ACUTE Diagnosis Active 2017-12-15 [facility] oria RENAL 12-15 10:05:00 l FAILURE, ACUTE 00:00: [place] FLUID RENAL 00 OVERLOAD, FAILURE, CHF FLUID OVERLOAD, CHF Active 12/15/2017 [facility] DM DM Disease Active Univers (diabetes (diabetes ity of mellitus) mellitus) [facility] HTN HTN Disease Active Univers (hypertens (hypertens it y of ion) ion) [facility] DIZZINESS Diagnosis Active 2019-04-15 Memoria AND 21:55:00 l GIDDINESS [place] DIZZINESS AND GIDDINESS Active [facility] DYSPNEA, Diagnosis Active 2018-03-19 M emoria UNSPECIFIE 13:39:00 l D DYSPNEA, Rafael n UNSPECIFIE D Active [facility] ACUTE Diagnosis Active 2017-12-15 Mem oria KIDNEY 10:05:00 l FAILURE, ACUTE [place] UNSPECIFIE KIDNEY D FAILURE, UNSPECIFIE D Active [facility] HEART Diagnosis Active 2017-12-15 Mem oria FAILURE, 10:05:00 l UNSPECIFIE HEART [place] nn D FAILURE, UNSPECIFIE D Active [facility] ACUTE Diagnosis Active 2018-12-14 Mem oria PULMONARY 09:50:00 l EDEMA ACUTE [place] PULMONARY EDEMA Active [facility] End stage Problem 2020-08-14 Wy moria renal 23:33:32 l disease End [place] stage renal disease 08/14/2020 [facility] [place] [facility] Type 2 Problem 2019-02-10 Memor ia diabetes 12:48:45 l mellitus Type 2 Rafael n with diabetes diabetic mellitus chronic with kidney diabetic disease chronic kidney disease 02/10/2019 [facility] Hypertensi Problem 2019-02-10 M emoria ve chronic 12:48:45 l kidney [place] disease Hypertensi with stage ve chronic 5 chronic kidney kidney disease disease or with stage end stage 5 chronic renal kidney disease disease or end stage renal disease 02/10/2019 [facility] Dependence Problem 2019-02-10 M emoria on renal 12:48:45 l dialysis [place] Dependence on renal dialysis 02/10/2019 [facility] [place] [facility] Anxiety Problem 2019-02-06 Kojo lynn disorder, 14:42:13 l unspecifie Anxiety Her meeks d disorder, unspecifie d 02/06/2019 [facility] Sleep Problem 2019-02-10 Memor ia apnea, 12:48:45 l unspecifie Sleep [place] nn d apnea, unspecifie d 02/10/2019 [facility] Other long Problem 2019-02-06 M emoria term 14:42:13 l (current) 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 therapy 02/06/2019 [facility] Pericardia Problem 2019-02-10 M emoria l effusion 12:48:45 l (noninflam Rafael n matory) Pericardia l effusion (noninflam matory) 02/10/2019 [facility] [place] [facility] Nausea Problem 2019-02-06 Memor ia 14:42:13 l Nausea [place] 02/06/2019 [facility] Other Problem 2019-02-06 Memor ia symptoms 14:42:13 l and signs Other Rafael n concerning symptoms food and and signs fluid concerning intake food and fluid intake 02/06/2019 [facility] Pneumonia, Problem 2019-04-10 M emoria unspecifie 22:02:39 l d organism Rafael n Pneumonia, unspecifie d organism 04/10/2019 [facility] Altered Problem 2019-11-07 Kojo lynn mental 23:47:53 l status, Altered Rafael n unspecifie mental d status, unspecifie d 11/07/2019 [facility] Acute Problem 2019-02-10 Memor ia pulmonary 12:48:45 l edema Acute [place] pulmonary edema 02/10/2019 [facility] Acute Problem 2019-02-10 Memor ia kidney 12:48:45 l failure, Acute [place] unspecifie kidney d failure, unspecifie d 02/10/2019 [facility] Fluid Problem 2019-02-10 Memor ia overload, 12:48:45 l unspecifie Fluid [place] nn d overload, unspecifie d 02/10/2019 [facility] Obesity, Problem 2019-02-10 Mem oria unspecifie 12:48:45 l d Obesity, Rafael n unspecifie d 02/10/2019 [facility] Body mass Problem 2019-02-10 Me moria index 12:48:45 l (BMI) Body Mar[place] 33.0-33.9, mass index adult (BMI) 33.0-33.9, adult 02/10/2019 [facility] Chronic Problem 2019-02-10 Kojo lynn obstructiv 12:48:45 l e Chronic [place] pulmonary obstructiv disease, e unspecifie pulmonary d disease, unspecifie d 02/10/2019 [facility] Dyspnea, Problem 2018-03-23 Mem oria unspecifie 01:53:56 l d Dyspnea, Rafael n unspecifie d 03/23/2018 [facility] Single Problem 2020-08-10 Memor ia liveborn 09:04:08 l infant, Single [place] delivered liveborn vaginally , delivered vaginally 08/10/2020 [facility] Hypocalcem Problem 2018-03-28 M emoria ia 12:58:31 l [place] Hypocalcem ia 03/28/2018 [facility] Other Problem 2018-03-28 Memor ia disorders 12:58:31 l of Other [place] phosphorus disorders metabolism of phosphorus metabolism 03/28/2018 [facility] Hypo-osmol Problem 2018-03-28 M emoria ality and 12:58:31 l hyponatrem Rafael n ia Hypo-osmol ality and hyponatrem ia 03/28/2018 [facility] Iron Problem 2018-03-28 Memor ia deficiency 12:58:31 l anemia, Iron [place] unspecifie deficiency d anemia, unspecifie d 03/28/2018 [facility] Secondary Problem 2018-03-28 Me moria hyperparat 12:58:31 l hyroidism Mar[place] of 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 03/28/2018 [facility] Acute Problem 2018-03-28 Memor ia diastolic 12:58:31 l (congestiv Acute [place] nn e) heart diastolic failure (congestiv e) heart failure 03/28/2018 [facility] Anemia in Problem 2018-03-28 Me moria other 12:58:31 l chronic Anemia [place] diseases in other classified chronic elsewhere diseases classified elsewhere 03/28/2018 [facility] Atheroscle Problem 2018-03-28 M emoria rosis of 12:58:31 l renal [place] artery Atheroscle rosis of renal artery 03/28/2018 [facility] Obstructiv Problem 2018-03-28 M emoria e sleep 12:58:31 l apnea [place] (adult) Obstructiv (pediatric e sleep ) apnea (adult) (pediatric ) 03/28/2018 [facility] Anxiety Problem Resolve 2020-08-14 Mem oria (finding) d 23:33:32 l Anxiety [place] (finding) Resolved Problem 08/14/2020 [facility] [place] [facility] Sleep Problem Resolve 2020-08-14 Kojo lynn apnea d 23:33:32 l (finding) Sleep Rafael n apnea (finding) Resolved Problem 08/14/2020 [facility] [place] [facility] Pericardia Problem Active 2020-08-14 M emoria l effusion 23:33:32 l (disorder) Rafael n Pericardia l effusion (disorder) Active Problem 08/14/2020 [facility] [place] [facility] Simple Problem Active 2020-08-14 Memor ia obesity 23:33:32 l (disorder) Simple Herm dionne obesity (disorder) Active Problem 08/14/2020 [facility] [place] [facility] ALTERED Diagnosis Active 2019-10-31 Me moria MENTAL 11:04:00 l STATUS, ALTERED Rafael n UNSPECIFIE MENTAL D STATUS, UNSPECIFIE D Active [facility] [place] PERITONITI Diagnosis Active 2020-07-09 Memoria S, 16:32:00 l UNSPECIFIE Rafael n D PERITONITI S, UNSPECIFIE D Active [facility] [place] HYPO-OSMOL Diagnosis Active 2019-10-31 Memoria ALITY AND 11:04:00 l HYPONATREM Rafael n IA HYPO-OSMOL ALITY AND HYPONATREM IA Active [facility] Marol TYPE 2 Diagnosis Active 2020-07-09 Mem oria DIABETES 16:32:00 l MELLITUS TYPE 2 Rafael n WITHOUT DIABETES COMPLIC MELLITUS WITHOUT COMPLIC Active [facility] [place] END STAGE Diagnosis Active 2020-08-12 Memoria RENAL 08:39:00 l DISEASE END [place] STAGE RENAL DISEASE Active [facility] [place] FLUID Diagnosis Active 2020-08-12 Mem oria OVERLOAD, 08:39:00 l UNSPECIFIE FLUID [place] nn D OVERLOAD, UNSPECIFIE D Active [facility] [place] SINGLE Diagnosis Active 2020-08-09 Mem oria LIVEBORN 07:58:00 l , SINGLE [place] DELIVERED LIVEBORN VAGINA , DELIVERED VAGINA Active [facility] PNEUMONIA, Diagnosis Active 2019-04-15 Memoria UNSPECIFIE 21:55:00 l D ORGANISM Rafael n PNEUMONIA, UNSPECIFIE D ORGANISM Active [facility] [place] History of Past Illness Condition Condition Condition Status Onset Resolution Last Treating Co mments Source Name Details Category Date Date Treatment Clinician Date Localized Problem 2019-2020-07-26 2020-07-26 Memoria edema 0-16 21:30:35 21:30:35 l 17:00: [place] Localized 00 edema 07/24/2020 07/26/2020 [facility] Hypokalemi Problem 2019-102020-07-26 2020-07-26 Memoria a 0-16 21:30:35 21:30:35 l 17:00: [place] Hypokalemi 00 a 07/24/2020 07/26/2020 [facility] Type 2 Problem 2020-07-17 2020-07-17 emoria diabetes 07-06 22:26:03 22:26:03 l mellitus Type 2 17:00: Rafael n without diabetes 00 complicati mellitus ons without complicati ons 07/06/2020 07/17/2020 [facility] Anemia, Problem 2020-05-23 2020-05-23 Memoria unspecifie 05-21 21:26:40 21:26:40 l d Anemia, 17:00: [place] unspecifie 00 d 05/21/2020 05/23/2020 [facility] Constipati Problem 2019-2020-05-23 2020-05-23 Memoria on, 05-21 21:26:40 21:26:40 l unspecifie 17:00: Rafael n d Constipati 00 on, unspecifie d 05/21/2020 05/23/2020 [facility] Pain in Problem 2020-02-05 2020-02-05 Memoria right hip 02-02 21:56:20 21:56:20 l Pain in 17:00: [place] right hip 00 02/03/2020 02/05/2020 [facility] Fever, Problem 2020-02-05 2020-02-05 M emoria unspecifie 02-02 21:56:20 21:56:20 l d Fever, 17:00: [place] unspecifie 00 d 02/03/2020 02/05/2020 [facility] Unspecifie Problem 2020-02-05 2020-02-05 Memoria d fall, 02-02 21:56:20 21:56:20 l initial 17:00: [place] encounter Unspecifie 00 d fall, initial encounter 02/03/2020 02/05/2020 [facility] Other Problem 2017-102019-02-10 2019-02-10 M emoria specified 12:48:45 12:48:45 l complicati Other 04:09: [place] nn on of specified 04 vascular complicati prosthetic on of devices, vascular implants prosthetic and devices, grafts, implants initial and encounter grafts, initial encounter 07/31/2018 02/10/2019 [facility] Hyperkalem Problem 2017-102019-02-06 2019-02-06 Memoria ia 0-12 14:42:13 14:42:13 l 05:00: [place] Hyperkalem 00 ia 07/20/2018 02/06/2019 [facility] Unspecifie Problem 2017-102019-02-06 2019-02-06 Memoria d 0-12 14:42:13 14:42:13 l complicati 05:00: Rafael n on of Unspecifie 00 internal d prosthetic complicati device, on of implant internal and graft, prosthetic initial device, encounter implant and graft, initial encounter 07/20/2018 02/06/2019 [facility] Hypertensi Problem 2018-03-28 2018-03-28 Memoria ve heart 12-28 12:58:31 12:58:31 l disease 03:49: [place] with heart Hypertensi 05 failure ve heart disease with heart failure 12/28/2017 03/28/2018 [facility] [place] Chronic Problem 2018-0 2018-01-25 2018-01-25 Memoria kidney 4-16 04:46:18 04:46:18 l disease, Chronic 05:00: [place] nn unspecifie kidney 00 d disease, unspecifie d 01/22/2018 01/25/2018 [facility] Allergies, Adverse Reactions, Alerts Allergy Allergy Status Severity Reaction(s) Onset Inactive Treating Comm ents Source Name Type Date Date Clinician NO KNOWN Drug Active Univers ALLERGIE Class ity of S [place] [facility] [place] Social History Social Habit Start Date Stop Date Quantity Comments Source Exposure to Unable to assess Univers ity of SARS-CoV-2 [place] [facility] (event) Branch History SDID 2020-03-23 2020-03-23 5 University o f Financial 00:00:00 00:00:00 [place] [facility] History [facility] Food 2020-03-23 2020-03-23 1 Univers ity of Worry 00:00:00 00:00:00 [place] [facility] History [facility] Food 2020-03-23 2020-03-23 1 Univers ity of Scarcity 00:00:00 00:00:00 [place] [facility] History [facility] 2020-03-23 2020-03-23 2 University o f Transport Med 00:00:00 00:00:00 [place] [facility] History [facility] 2020-03-23 2020-03-23 2 University o f Transport Non-Med 00:00:00 00:00:00 [place] [facility] Tobacco use and 2020-03-04 2020-03-04 Never used Universit y of exposure 00:00:00 00:00:00 [facility] Branch Social History 2017-12-15 2017-12-15 [facility] Tao devante 18:14:42 18:14:42 [birth year] Universit y of 00:00:00 00:00:00 [facility] Smoking Status Start Date Stop Date Source Never smoker [facility] Branch Unknown if ever smoked Universit y of [place] [facility] [place] Medications Ordered Filled Start Stop Current Ordering [...] daily as Branch needed. Regadenoson 2020- No [id number] .4mg 0.4 mg, Univers (LEXISCAN) 04-01 Slow IV ity o f injection 18:00: 17:00 [place], [place] 0.4 mg 00 :00 ONCE, 1 Medical dose, Leyla Branch 04/01/21 at 1300, Routine
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 Restricted medication : CARLITOS THOMPSON tc 2020- No [id number] 45mCi 45 Univer s 99m-tetrofo 04-01 millicurie i ty of smin 17:00: 17:01 , [place] ([facility]) 00 :00 Intravenou Medi sony injection s, ONCE, 1 Bran ch 45 dose, Leyla millicurie 04/01/21 at 1200, Routine tc 2020-0 2020- No [id number] 16.09 16.09 U nivers 99m-tetrofo 04-01 4104 i [facility]urie [facility] 16:02: 16:14 , [place] ([facility] 00 :00 Intravenou Medi sony injection s, ONCE, 1 Bran ch 16.09 dose, Leyla millicurie 04/01/21 at 1115, Routine fentaNYL 2019-10 No Route: IV, Mem oria (ANES) 10-12 Drug form: l 18:10: INJ, ONCE, Stop date: 08/12/20 12:10:00 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 lidocaine 2019-10 No Route: IV, Me moria (ANES) 10-12 Drug form: l 18:10: INJ, ONCE, Stop date: 08/12/20 12:10:00 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 propofol 2019-10 No Route: IV, Mem oria (ANES) 10-12 Drug form: l 18:10: INJ, ONCE, Stop date: 08/12/20 12:10:00 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 ondansetron 2019-10 No Route: IV, Memoria (ANES) 10-12 Drug form: l 18:10: INJ, ONCE, Stop date: 08/12/20 12:10:00 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 metoclopram 2019-10 No Route: IV, Memoria jeanna (ANES) 10-12 Drug form: l 18:10: INJ, ONCE, Mar[place] 00 Stop date: 08/12/20 12:10:00 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 fentaNYL 2019-10 No Route: IV, Mem oria (ANES) 10-12 Drug form: l 18:10: INJ, ONCE, Stop date: 08/12/20 12:10:00 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 lidocaine 2019-10 No Route: IV, Me moria (ANES) 1- Drug form: l 18:10: INJ, ONCE, [place] 00 Stop date: 08/12/20 12:10:00 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 propofol 2019-10 No Route: IV, Mem oria (ANES) - Drug form: l 18:10: INJ, ONCE, Stop date: 08/12/20 12:10:00 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 ondansetron 2019-10 No Route: IV, Memoria (ANES) 1- Drug form: l 18:10: INJ, ONCE, Stop date: 08/12/20 12:10:00 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 metoclopram 2019-10 No Route: IV, Memoria jeanna (ANES) - Drug form: l 18:10: INJ, ONCE, Stop date: 08/12/20 12:10:00 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 fentaNYL 2019-10 No Route: IV, Mem oria (ANES) - Drug form: l 18:10: INJ, ONCE, Stop date: 08/12/20 12:10:00 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 lidocaine 2019-10 No Route: IV, Me moria (ANES) 10-12 Drug form: l 18:10: INJ, ONCE, Stop date: 08/12/20 12:10:00 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 propofol 2019-10 No Route: IV, Mem oria (ANES) - Drug form: l 18:10: INJ, ONCE, Stop date: 08/12/20 12:10:00 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 ondansetron 2019-10 No Route: IV, Memoria (ANES) 1- Drug form: l 18:10: INJ, ONCE, Stop date: 08/12/20 12:10:00 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 metoclopram 2019-10 No Route: IV, Memoria jeanna (ANES) - Drug form: l 18:10: INJ, ONCE, Stop date: 08/12/20 12:10:00 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 ceFAZolin 2019-10 No Route: IV, Me moria (ANES) 1- Drug form: l 17:50: INJ, ONCE, Stop date: 08/12/20 11:50:00 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 ceFAZolin 2019-10 No Route: IV, Me moria (ANES) 1- Drug form: l 17:50: INJ, ONCE, Stop date: 08/12/20 11:50:00 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 ceFAZolin 2019-10 No Route: IV, Me moria (ANES) 1-04 Drug form: l 17:50: INJ, ONCE, [place] 00 Stop date: 08/12/20 11:50:00 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 Sodium 2020-1 No Route: IV, Memor ia Chloride 1-04 Total l 0.9% IV 17:14: Volume: Marlo (ANES) 500 00 500, Start mL date: 08/12/20 11:14:00 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, Stop date: 08/12/20 12:14:00 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 Sodium 2020-1 No Route: IV, Memor ia Chloride 1-04 Total l 0.9% IV 17:14: Volume: [place] (ANES) 500 00 500, Start mL date: 08/12/20 11:14:00 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, Stop date: 08/12/20 12:14:00 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 Sodium 2020-1 No Route: IV, Memor ia Chloride 1-04 Total l 0.9% IV 17:14: Volume: [place] (ANES) 500 00 500, Start mL date: 08/12/20 11:14:00 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, Stop date: 08/12/20 12:14:00 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 Sodium 2020-1 No 500 mL, Memoria Chloride 1-04 Rate: 75 l 0.9% IV 500 16:52: ml/hr, Herm dionne mL 00 Infuse over: 6.7 hr, Route: IV, Dosing Weight 111.182 kg, Total Volume: 500, Start date: 08/12/20 10:52:00 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, Duration: 1 doses or times, Stop date: 08/12/20 17:33:00 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, 2.32, m2, 0 Sodium 2020-1 No 500 mL, Memoria Chloride 1-04 Rate: 75 l 0.9% IV 500 16:52: ml/hr, Herm dionne mL 00 Infuse over: 6.7 hr, Route: IV, Dosing Weight 111.182 kg, Total Volume: 500, Start date: 08/12/20 10:52:00 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, Duration: 1 doses or times, Stop date: 08/12/20 17:33:00 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, 2.32, m2, 0 Sodium 2020-1 No 500 mL, Memoria Chloride 1-04 Rate: 75 l 0.9% IV 500 16:52: ml/hr, Herm dionne mL 00 Infuse over: 6.7 hr, Route: IV, Dosing Weight 111.182 kg, Total Volume: 500, Start date: 08/12/20 10:52:00 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, Duration: 1 doses or times, Stop date: 08/12/20 17:33:00 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, 2.32, m2, 0 Potassium 2019-10 No Notes: [...] s with feeding tube less than 14 Armenian (Dobhoff, J-tube etc) and pediatric and patients. Potassium 2019- No Notes: Memori a Chloride 1-04 (Same as: l 13:46: K-Dur 20) [place] 00 "Do Not Crush" Give with food and full glass of water For patients unable to swallow tablet, dissolve in one half glass of water. Allow about 2 minutes for the tablets to disintegra te. Stir before giving to prepare slurry and administer . Please exclude Patient s with feeding tube less than 14 Armenian (Dobhoff, J-tube etc) and pediatric and patients. [...] s with feeding tube less than 14 Armenian (Dobhoff, J-tube etc) and pediatric and patients. Hydralazine 2019-10 No 10 mg, Kojo lynn 1-03 Route: l 21:11: IVP, Q4H, [place] Dosing Weight 111.182, kg, PRN Hypertensi on, Start date: 08/11/20 15:11:00 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, Duration: 30 day, Stop date: 09/10/20 15:10:00 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 Hydralazine 2019-10 No 10 mg, Kojo lynn 1-03 Route: l 21:11: IVP, Q4H, [place] 00 Dosing Weight 111.182, kg, PRN Hypertensi on, Start date: 08/11/20 15:11:00 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, Duration: 30 day, Stop date: 09/10/20 15:10:00 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 Hydralazine 2019-10 No 10 mg, Kojo lynn 10-11 Route: l 21:11: IVP, Q4H, Dosing Weight 111.182, kg, PRN Hypertensi on, Start date: 08/11/20 15:11:00 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, Duration: 30 day, Stop date: 09/10/20 15:10:00 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 Potassium 2019-10 No Notes: Memori a Chloride [...] s with feeding tube less than 14 Armenian (Dobhoff, J-tube etc) and pediatric and patients. [...] s with feeding tube less than 14 Armenian (Dobhoff, J-tube etc) and pediatric and patients. [...] s with feeding tube less than 14 Armenian (Dobhoff, J-tube etc) and pediatric and patients. [...] Memoria 10-10 (Same As: l 04:24: Ambien) [place] Ambien 2019-10 No Notes: Memoria 10-10 (Same As: l 04:24: Ambien) [place] Melatonin 2019-10 No Notes: Kojo lynn MG [...] Dialysis, Priority: STAT, Start date: 08/09/20 9:10:00 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, Duration: 1 doses or times, Stop date: Limited # of times, 0 heparin 2019-10 No 10,000 Memoria 1-01 unit, 10 l 15:10: mL, Route: [place] 00 DIALYSIS, Drug form: INJ, ONCALL, Dosing Weight 111.182, kg, PRN Dialysis, Priority: STAT, Start date: 08/09/20 9:10:00 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, Duration: 1 doses or times, Stop date: Limited # of times, 0 heparin 2019-10 No 10,000 Memoria 1-01 unit, 10 l 15:10: mL, Route: [place] 00 DIALYSIS, Drug form: INJ, ONCALL, Dosing Weight 111.182, kg, PRN Dialysis, Priority: STAT, Start date: 08/09/20 9:10:00 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, Duration: 1 doses or times, Stop date: [...] l 14:30: Procrit) [place] 00 epoetin franca 85320 unit/1 ml VL. Non-formul heydi For dialysis use only. (Procrit) WASTE: F/P - Red; E -Red MEDICATION WASTE Product Size: 10318 unit Product Wasted: ___ unit epoetin 2019-10 No Notes: Memoria franca 0-31 (Same as: l 14:30: Procrit) [place] 00 epoetin franca 95046 unit/1 ml VL. Non-formul heydi For dialysis use only. (Procrit) WASTE: F/P - Red; E -Red MEDICATION WASTE Product Size: 72423 unit Product Wasted: ___ unit epoetin 2019-10 No Notes: Memoria franca 0-31 (Same as: l 14:30: Procrit) [place] 00 epoetin franca 07755 unit/1 ml VL. Non-formul heydi For dialysis use only. (Procrit) WASTE: F/P - Red; E -Red MEDICATION WASTE Product Size: 55579 unit Product Wasted: ___ unit Sodium 2019-10 No 250 mL, Memoria Chloride 0-31 Rate: To l 0.9% 14:13: prime line [place] (titrate) 00 and flush 250 mL remaining blood products., Dosing Weight 111.182, kg, Route: IV, Total Volume: 250, Priority: Routine, Start Date: 08/08/20 9:13:00 CDT, Duration: 1 day, Stop date: 08/09/20 9:12:00 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, Replace Every: 24 hr, 0 Sodium 2019-10 No 250 mL, Memoria Chloride 0-31 Rate: To l 0.9% 14:13: prime line [place] (titrate) 00 and flush 250 mL remaining blood products., Dosing Weight 111.182, kg, Route: IV, Total Volume: 250, Priority: Routine, Start Date: 08/08/20 9:13:00 CDT, Duration: 1 day, Stop date: 08/09/20 9:12:00 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, Replace Every: 24 hr, 0 Sodium 2019-10 No 250 mL, Memoria Chloride 0-31 Rate: To l 0.9% 14:13: prime line [place] (titrate) 00 and flush 250 mL remaining blood products., Dosing Weight 111.182, kg, Route: IV, Total Volume: 250, Priority: Routine, Start Date: 08/08/20 9:13:00 CDT, Duration: 1 day, Stop date: 08/09/20 9:12:00 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, Replace Every: 24 hr, 0 Amlodipine 2019-10 No 1 cap, Memor ia 10 MG / 0-31 Route: PO, l Benazepril 14:00: Drug Form: H ermann hydrochlori 00 CAP, de 20 MG Dosing Oral Weight Capsule 111.182, kg, Daily, Start date: 08/08/20 9:00:00 CDT, Duration: 30 day, Stop date: 09/06/20 9:00:00 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 carvedilol 2019-10 No 12.5 mg, Mem oria 0-31 Route: PO, l 14:00: Drug form: [place] 00 TAB, Q12H, Dosing Weight 111.182, kg, Start date: 08/08/20 9:00:00 CDT, Duration: 30 day, Stop date: 09/06/20 21:00:00 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 amLODIPine 2019-10 No Notes: Memor ia 0-31 (Same as: l 14:00: Norvasc) lisinopril 2019-10 No Notes: Memor ia 0-31 (Same as: l 14:00: Prinivil, [place] 00 Zestril) Amlodipine 2019-10 No 1 cap, Memor ia 10 MG / 0-31 Route: PO, l Benazepril 14:00: Drug Form: H ermann hydrochlori 00 CAP, de 20 MG Dosing Oral Weight Capsule 111.182, kg, Daily, Start date: 08/08/20 9:00:00 CDT, Duration: 30 day, Stop date: 09/06/20 9:00:00 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 carvedilol 2019-10 No 12.5 mg, Mem oria 0-31 Route: PO, l 14:00: Drug form: [place] 00 TAB, Q12H, Dosing Weight 111.182, kg, Start date: 08/08/20 9:00:00 CDT, Duration: 30 day, Stop date: 09/06/20 21:00:00 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 amLODIPine 2019-10 No Notes: Memor ia 0-31 (Same as: l 14:00: Norvasc) [place] lisinopril 2019-10 No Notes: Memor ia 0-31 (Same as: l 14:00: Prinivil, [place] Zestril) Amlodipine 2019-10 No 1 cap, Memor ia 10 MG / 0-31 Route: PO, l Benazepril 14:00: Drug Form: H ermann hydrochlori 00 CAP, de 20 MG Dosing Oral Weight Capsule 111.182, kg, Daily, Start date: 08/08/20 9:00:00 CDT, Duration: 30 day, Stop date: 09/06/20 9:00:00 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 carvedilol 2019-10 No 12.5 mg, Mem oria 0-31 Route: PO, l 14:00: Drug form: [place] 00 TAB, Q12H, Dosing Weight 111.182, kg, Start date: 08/08/20 9:00:00 CDT, Duration: 30 day, Stop date: 09/06/20 21:00:00 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 amLODIPine 2019-10 No Notes: Memor ia 0-31 (Same as: l 14:00: Norvasc) [place] lisinopril 2019-10 No Notes: Memor ia 0-31 (Same as: l 14:00: Prinivil, [place] Zestril) Dilaudid 2019-10 No Notes: Memoria 0-31 Same as: l 13:46: Dilaudid [place] Dilaudid 2019-10 No Notes: Memoria 0-31 Same as: l 13:46: Dilaudid [place] Dilaudid 2019-10 No Notes: Memoria 0-31 Same as: l 13:46: Dilaudid [place] Epogen 2019-10 No 11,000 Memoria 0-31 unit, l 13:01: Route: [place] 00 SUB-Q, Drug form: INJ, Q-M-W-F, Dosing Weight 111.182, kg, Priority: NOW, Start date: 08/08/20 8:01:00 CDT, Duration: 30 day, Stop date: 09/04/20 9:00:00 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 Epogen 2019-10 No 11,000 Memoria 0-31 unit, l 13:01: Route: [place] 00 SUB-Q, Drug form: INJ, Q-M-W-F, Dosing Weight 111.182, kg, Priority: NOW, Start date: 08/08/20 8:01:00 CDT, Duration: 30 day, Stop date: 09/04/20 9:00:00 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 Epogen 2019-10 No 11,000 Memoria 0-31 unit, l 13:01: Route: [place] 00 SUB-Q, Drug form: INJ, Q-M-W-F, Dosing Weight 111.182, kg, Priority: NOW, Start date: 08/08/20 8:01:00 CDT, Duration: 30 day, Stop date: 09/04/20 9:00:00 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 Morphine 2019-10 No Notes: Memoria 0-31 (Same l 10:27: as:MORPhin [place] 00 e Sulfate) Morphine 2019-10 No Notes: Memoria 0-31 (Same l 10:27: as:MORPhin [place] 00 e Sulfate) Morphine 2019-10 No Notes: Memoria 0-31 (Same l 10:27: as:MORPhin [place] 00 e Sulfate) Morphine 2019-10 No Notes: [facility]oria 0-31 (Same l 01:44: as:MORPhin [place] 00 e Sulfate) Morphine 2019-10 No Notes: Memoria 0-31 (Same l 01:44: as:MORPhin [place] 00 e Sulfate) Morphine 2019-10 No Notes: Memoria 0-31 (Same l 01:44: as:MORPhin [place] 00 e Sulfate) normal 2019-10 No 2,000 mL, Memori a saline 0.9% 0-30 Rate: 100 l IV 2,000 mL 22:22: ml/hr, Herm dionne Infuse over: 20 hr, Route: IV, Dosing Weight 111.182 kg, Total Volume: 2,000, Start date: 08/07/20 17:22:00 CDT, Duration: 30 day, Stop date: 09/06/20 17:21:00 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, 2.32, m2, 0 normal 2019-10 No 2,000 mL, Memori a saline 0.9% 0-30 Rate: 100 l IV 2,000 mL 22:22: ml/hr, Herm dionne 00 Infuse over: 20 hr, Route: IV, Dosing Weight 111.182 kg, Total Volume: 2,000, Start date: 08/07/20 17:22:00 CDT, Duration: 30 day, Stop date: 09/06/20 17:21:00 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, 2.32, m2, 0 normal 2019- No 2,000 mL, Memori a saline 0.9% 0-30 Rate: 100 l IV 2,000 mL 22:22: ml/hr, Herm dionne 00 Infuse over: 20 hr, Route: IV, Dosing Weight 111.182 kg, Total Volume: 2,000, Start date: 08/07/20 17:22:00 CDT, Duration: 30 day, Stop date: 09/06/20 17:21:00 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, 2.32, m2, 0 Lasix 2019-10 No 80 mg, Memoria 0-30 Route: l 13:00: IVP, Drug M[place] 00 form: INJ, BID Diuretic, Dosing Weight 117.002, kg, Start date: 08/07/20 8:00:00 CDT, Duration: 30 day, Stop date: 09/05/20 16:00:00 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 Lasix 2019-10 No 80 mg, Memoria 0-30 Route: l 13:00: IVP, Drug [place] 00 form: INJ, BID Diuretic, Dosing Weight 117.002, kg, Start date: 08/07/20 8:00:00 CDT, Duration: 30 day, Stop date: 09/05/20 16:00:00 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 Lasix 2019-10 No 80 mg, [facility] 0-30 Route: l 13:00: IVP, Drug [place] 00 form: INJ, BID Diuretic, Dosing Weight 117.002, kg, Start date: 08/07/20 8:00:00 CDT, Duration: 30 day, Stop date: 09/05/20 16:00:00 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 Magnesium 2019-10 No Notes: Memori a Sulfate 0-30 WASTE: F/P l 12:58: - Sink; E [place] - Municipal Trash Bin Potassium 2019-10 No Notes: Memori a Chloride 0-30 (Same as: l 12:58: K-Dur 20) [place] 00 "Do Not Crush" Give with food and full glass of water For patients unable to swallow tablet, dissolve in one half glass of water. Allow about 2 minutes for the tablets to disintegra te. Stir before giving to prepare slurry and administer . Please exclude Patient s with feeding tube less than 14 Armenian (Dobhoff, J-tube etc) and pediatric and patients. Magnesium 2019-10 No Notes: Memori a Sulfate 0-30 WASTE: F/P l 12:58: - Sink; E [place] 00 - Municipal Trash Bin Potassium 2019-10 No Notes: Memori a Chloride 0-30 (Same as: l 12:58: K-Dur 20) [place] 00 "Do Not Crush" Give with food and full glass of water For patients unable to swallow tablet, dissolve in one half glass of water. Allow about 2 minutes for the tablets to disintegra te. Stir before giving to prepare slurry and administer . Please exclude Patient s with feeding tube less than 14 Armenian (Dobhoff, J-tube etc) and pediatric and patients. Magnesium 2019-10 No Notes: Memori a Sulfate 0-30 WASTE: F/P l 12:58: - Sink; E [place] 00 - Municipal Trash Bin Potassium 2019-10 No Notes: Memori a Chloride 0-30 (Same as: l 12:58: K-Dur 20) [place] 00 "Do Not Crush" Give with food and full glass of water For patients unable to swallow tablet, dissolve in one half glass of water. Allow about 2 minutes for the tablets to disintegra te. Stir before giving to prepare slurry and administer . Please exclude Patient s with feeding tube less than 14 Armenian (Dobhoff, J-tube etc) and pediatric and patients. Potassium 2019-10 No Notes: Memori a Chloride 0-30 Infuse at l 11:00: a rate of [place] 00 10 mEq/hr. (Same as: KCL) Potassium 2019-10 No Notes: Memori a Chloride 0-30 Infuse at l 11:00: a rate of [place] 00 10 mEq/hr. (Same as: KCL) Potassium 2019-10 No Notes: Memori a Chloride 0-30 Infuse at l 11:00: a rate of [place] 00 10 mEq/hr. (Same as: KCL) normal [...] Duration: 30 day, Stop date: 09/06/20 5:36:00 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, 2.32, m2 normal 2020-1 No 250 mL, Memoria saline 0.9% 0-30 Rate: 50 l IV 250 mL 10:37: ml/hr, Rafael n 00 Infuse over: 5 hr, Route: IV, Dosing Weight 111.182 kg, Total Volume: 250, Start date: 08/07/20 5:37:00 CDT, Duration: 30 day, Stop date: 09/06/20 5:36:00 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, 2.32, m2 normal 2019-10 No 250 mL, Memoria saline 0.9% 0-30 Rate: 50 l IV 250 mL 10:37: ml/hr, Rafael n 00 Infuse over: 5 hr, Route: IV, Dosing Weight 111.182 kg, Total Volume: 250, Start date: 08/07/20 5:37:00 CDT, Duration: 30 day, Stop date: 09/06/20 5:36:00 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, 2.32, m2 Hydralazine 2019-10 No Notes: Kojo [...] Notes: Memoria 0-30 porcine l 05:00: heparin [place] 00 heparin 2019-10 No Notes: Memoria 0-30 porcine l 05:00: heparin [place] 00 Lasix 2019-10 No Notes: Memoria 0-30 (Same as: l 01:32: Lasix) [place] 00 MEDICATION WASTE Product Size: 40 mg Product Wasted: ___ mg Lasix 2019-10 No Notes: Memoria 0-30 (Same as: l 01:32: Lasix) [place] 00 MEDICATION WASTE Product Size: 40 mg Product Wasted: ___ mg Lasix 2019-10 No Notes: Memoria 0-30 (Same as: l 01:32: Lasix) [place] 00 MEDICATION WASTE Product Size: 40 mg Product Wasted: ___ mg Ondansetron 2019-10 No Notes: Kojo lynn 0-30 (Same as: l 01:31: Zofran) [place] 00 MEDICATION WASTE Product Size: 4 mg Product Wasted: ___ mg Acetaminoph 2019-10 No Notes: Do M emoria en 325 MG / 0-30 not exceed l Hydrocodone 01:31: 4gm/day of [place] Bitartrate 00 acetaminop 10 MG Oral hen. Tablet (Same as: [Hannah Hannah 10/325] 325/10) Acetaminoph 2019-10 No Notes: Kojo lynn en 325 MG / 0-30 (Same as: l Hydrocodone 01:31: Hannah Mercedez nn Bitartrate 00 325/5) Do 5 MG Oral not exceed Tablet 4gm/day of [Hannah acetaminop 5/325] hen. Ondansetron 2019-10 No Notes: Kojo lynn 0-30 (Same as: l 01:31: Zofran) [place] 00 MEDICATION WASTE Product Size: 4 mg Product Wasted: ___ mg Acetaminoph 2019-10 No Notes: Do M emoria en 325 MG / 0-30 not exceed l Hydrocodone 01:31: 4gm/day of [place] Bitartrate 00 acetaminop 10 MG Oral hen. Tablet (Same as: [Hannah Hannah 10/325] 325/10) Acetaminoph 2019-10 No Notes: Kojo lynn en 325 MG / 0-30 (Same as: l Hydrocodone 01:31: Hannah Mercedez nn Bitartrate 00 325/5) Do 5 MG Oral not exceed Tablet 4gm/day of [Hannah acetaminop 5/325] hen. Ondansetron 2019-10 No Notes: Kojo lynn 0-30 (Same as: l 01:31: Zofran) [place] 00 MEDICATION WASTE Product Size: 4 mg Product Wasted: ___ mg Acetaminoph 2019-10 No Notes: Do M emoria en 325 MG / 0-30 not exceed l Hydrocodone 01:31: 4gm/day of [place] Bitartrate 00 acetaminop 10 MG Oral hen. Tablet (Same as: [Hannah Hannah 10/325] 325/10) Acetaminoph 2019-10 No Notes: Kojo lynn en 325 MG / 0-30 (Same as: l Hydrocodone 01:31: Hannah Mercedez nn Bitartrate 00 325/5) Do 5 MG Oral not exceed Tablet 4gm/day of [Hannah acetaminop 5/325] hen. Dilaudid 2019-10 No 1 [...] Duration: 30 day, Stop date: 09/05/20 19:08:00 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, 0 Glucagon 2019-10 No 1 mg, Memoria 0-30 Route: IM, l 01:09: Drug form: [place] PDR/INJ, PRN, Dosing Weight 117.002, kg, PRN Blood Glucose Results, Start date: 08/06/20 20:09:00 CDT, Duration: 30 day, Stop date: 09/05/20 19:08:00 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, 0 Dextrose 2020-1 No 12.5 gm, Memor ia 50% Syringe 0-30 25 mL, l (D50W) 01:09: Route: [place] 00 IVP, Drug Form: INJ, Dosing Weight 117.002, kg, PRN, PRN Blood Glucose Results, Start date: 08/06/20 20:09:00 CDT, Duration: 30 day, Stop date: 09/05/20 19:08:00 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, 0 Glucagon 2020-1 No 1 mg, Memoria 0-30 Route: IM, l 01:09: Drug form: [place] 00 PDR/INJ, PRN, Dosing Weight 117.002, kg, PRN Blood Glucose Results, Start date: 08/06/20 20:09:00 CDT, Duration: 30 day, Stop date: 09/05/20 19:08:00 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, 0 Dextrose 2020-1 No 12.5 gm, Memor ia 50% Syringe 0-30 25 mL, l (D50W) 01:09: Route: [place] 00 IVP, Drug Form: INJ, Dosing Weight 117.002, kg, PRN, PRN Blood Glucose Results, Start date: 08/06/20 20:09:00 CDT, Duration: 30 day, Stop date: 09/05/20 19:08:00 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, 0 Glucagon 2020-1 No 1 mg, Memoria 0-30 Route: IM, l 01:09: Drug form: [place] 00 PDR/INJ, PRN, Dosing Weight 117.002, kg, PRN Blood Glucose Results, Start date: 08/06/20 20:09:00 CDT, Duration: 30 day, Stop date: 09/05/20 19:08:00 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, 0 Magnesium 2020-1 No Notes: Memori a [...] s with feeding tube less than 14 Armenian (Dobhoff, J-tube etc) and pediatric and patients. Magnesium 2019-10 No Notes: Memori a Sulfate 0-30 WASTE: F/P l 00:44: - Sink; E [place] 00 - Municipal Trash Bin Potassium 2019-10 No Notes: Memori a Chloride 0-30 (Same as: l 00:44: K-Dur 20) [place] 00 "Do Not Crush" Give with food and full glass of water For patients unable to swallow tablet, dissolve in one half glass of water. Allow about 2 minutes for the tablets to disintegra te. Stir before giving to prepare slurry and administer . Please exclude Patient s with feeding tube less than 14 Armenian (Dobhoff, J-tube etc) and pediatric and patients. Magnesium 2019-10 No Notes: Memori a Sulfate 0-30 WASTE: F/P l 00:44: - Sink; E [place] - Municipal Trash Bin Potassium 2019-10 No Notes: Memori a Chloride 0-30 (Same as: l 00:44: K-Dur 20) [place] 00 "Do Not Crush" Give with food and full glass of water For patients unable to swallow tablet, dissolve in one half glass of water. Allow about 2 minutes for the tablets to disintegra te. Stir before giving to prepare slurry and administer . Please exclude Patient s with feeding tube less than 14 Armenian (Dobhoff, J-tube etc) and pediatric and patients. Dilaudid 2019-10 No 1 mg, Memoria 0-29 Route: l 23:27: IVP, ONCE, [place] Dosing Weight 117.002, kg, Priority: STAT, Start date: 08/06/20 18:27:00 CDT, Stop date: 08/06/20 18:27:00 CDT Dilaudid 2019-10 No 1 mg, Memoria 0-29 Route: l 23:27: IVP, ONCE, [place] Dosing Weight 117.002, kg, Priority: STAT, Start date: 08/06/20 18:27:00 CDT, Stop date: 08/06/20 18:27:00 CDT Dilaudid 2019-10 No 1 mg, Memoria 0-29 Route: l 23:27: IVP, ONCE, [place] Dosing Weight 117.002, kg, Priority: STAT, Start date: 08/06/20 18:27:00 CDT, Stop date: 08/06/20 18:27:00 CDT Potassium 2020-1 No 40 mEq, Memor ia Chloride 0- Route: PO, l 22:56: Drug form: [place] ERTAB, ONCE, Dosing Weight 117.002, kg, Priority: STAT, Start date: 08/06/20 17:56:00 CDT, Stop date: 08/06/20 17:56:00 CDT Potassium 2020-1 No 40 mEq, Memor ia Chloride 0 Route: PO, l 22:56: Drug form: [place] 00 ERTAB, ONCE, Dosing Weight 117.002, kg, Priority: STAT, Start date: 08/06/20 17:56:00 CDT, Stop date: 08/06/20 17:56:00 CDT Potassium 2019-1 No 40 mEq, Memor ia Chloride 0 Route: PO, l 22:56: Drug form: [place] 00 ERTAB, ONCE, Dosing Weight 117.002, kg, [...] 20 MG Pharmacy: [facility] [place], 170.18, cm, 07/06/20 5:14:00 CDT, Height, 105, kg, 07/06/20 5:14:00 CDT, Weight cefdinir 2019-10 Yes 300 mg = 1 Mem oria 300 MG Oral 0-07 cap, PO, l Capsule 17:35: Daily, X 7 Herm dionne 00 day, # 7 cap, 0 Refill(s), Pharmacy: [facility] [place], 170.18, cm, 07/06/20 5:14:00 CDT, Height, 105, kg, 07/06/20 5:14:00 CDT, Weight Metronidazo 2019-10 Yes 500 mg = 1 Memoria le 500 MG 0-07 tab, PO, l Oral Tablet 17:35: Q8H, X 7 He rmann [Flagyl] 00 day, # 21 tab, 0 Refill(s), Pharmacy: [facility] [place], 170.18, cm, 07/06/20 5:14:00 CDT, Height, 105, kg, 07/06/20 5:14:00 CDT, Weight Amlodipine 2019-10 Yes 1 cap, PO, M emoria 10 MG / 0-07 Daily, # l Benazepril 17:35: 30 cap, 0 He rmann hydrochlori 00 Refill(s), de 20 MG Pharmacy: [facility] [place], 170.18, cm, 07/06/20 5:14:00 CDT, Height, 105, kg, 07/06/20 5:14:00 CDT, Weight cefdinir 2019-10 Yes 300 mg = 1 Mem oria 300 MG Oral 0-07 cap, PO, l Capsule 17:35: Daily, X 7 Herm dionne 00 day, # 7 cap, 0 Refill(s), Pharmacy: [facility] [place], 170.18, cm, 07/06/20 5:14:00 CDT, Height, 105, kg, 07/06/20 5:14:00 CDT, Weight Metronidazo 2019-10 Yes 500 mg = 1 Memoria le 500 MG 0-07 tab, PO, l Oral Tablet 17:35: Q8H, X 7 He r[place] [Flagyl] 00 day, # 21 tab, 0 Refill(s), Pharmacy: [facility] [place], 170.18, cm, 07/06/20 5:14:00 CDT, Height, 105, kg, 07/06/20 5:14:00 CDT, Weight Amlodipine 2019-10 Yes 1 cap, PO, M emoria 10 MG / 0-07 Daily, # l Benazepril 17:35: 30 cap, 0 He rmann hydrochlori 00 Refill(s), de 20 MG Pharmacy: [facility] [place], 170.18, cm, 07/06/20 5:14:00 CDT, Height, 105, kg, 07/06/20 5:14:00 CDT, Weight cefdinir 2019-10 Yes 300 mg = 1 Mem oria 300 MG Oral 0-07 cap, PO, l Capsule 17:35: Daily, X 7 Herm dionne 00 day, # 7 cap, 0 Refill(s), Pharmacy: [facility] [place], 170.18, cm, 07/06/20 5:14:00 CDT, Height, 105, kg, 07/06/20 5:14:00 CDT, Weight Metronidazo 2019-10 Yes 500 mg = 1 Memoria le 500 MG 0-07 tab, PO, l Oral Tablet 17:35: Q8H, X 7 He r[place] [Flagyl] 00 day, # 21 tab, 0 Refill(s), Pharmacy: [facility] [place], 170.18, cm, 07/06/20 5:14:00 CDT, Height, 105, [...] s with feeding tube less than 14 Armenian (Dobhoff, J-tube etc) and pediatric and patients. Potassium 2019-10 No Notes: Memori a Chloride 0-06 (Same as: l 22:47: K-Dur 20) [place] 00 "Do Not Crush" Give with food and full glass of water For patients unable to swallow tablet, dissolve in one half glass of water. Allow about 2 minutes for the tablets to disintegra te. Stir before giving to prepare slurry and administer . Please exclude Patient s with feeding tube less than 14 [place] (Dobhoff, J-tube etc) and pediatric and patients. [...] s with feeding tube less than 14 Armenian (Dobhoff, J-tube etc) and pediatric and patients. Clonidine 2019-10 No Notes: Memori a 0-06 (Same As: l 22:46: Catapres) Clonidine 2019-10 No Notes: Memori a 0-06 (Same As: l 22:46: Catapres) Clonidine 2019-10 No Notes: Memori a 0-06 (Same As: l 22:46: Catapres) Sucralfate 2019-10 No Notes: February M emoria 100 MG/ML 0-06 interfere l Oral 18:00: w/enteral [place] Suspension 00 feeds - [Carafate] Take 1 [...] s with feeding tube less than 14 [place] (Dobhoff, J-tube etc) and pediatric and patients. Potassium 2019-10 No Notes: Memori a Chloride 0-06 (Same as: l 13:00: K-Dur 20) [place] 00 "Do Not Crush" Give with food and full glass of water For patients unable to swallow tablet, dissolve in one half glass of water. Allow about 2 minutes for the tablets to disintegra te. Stir before giving to prepare slurry and administer . Please exclude Patient s with feeding tube less than 14 [place] (Dobhoff, J-tube etc) and pediatric and patients. Potassium 2019-10 No Notes: Memori a Chloride 0-06 (Same as: l 13:00: K-Dur 20) [place] 00 "Do Not Crush" Give with food and full glass of water For patients unable to swallow tablet, dissolve in one half glass of water. Allow about 2 minutes for the tablets to disintegra te. Stir before giving to prepare slurry and administer . Please exclude Patient s with feeding tube less than 14 [place] (Dobhoff, J-tube etc) and pediatric and patients. [...] s with feeding tube less than 14 [place] (Dobhoff, J-tube etc) and pediatric and patients. Potassium 2019-10 No Notes: Memori a Chloride 0-05 (Same as: l 12:44: K-Dur 20) [place] 00 "Do Not Crush" Give with food and full glass of water For patients unable to swallow tablet, dissolve in one half glass of water. Allow about 2 minutes for the tablets to disintegra te. Stir before giving to prepare slurry and administer . Please exclude Patient s with feeding tube less than 14 Armenian (Dobhoff, J-tube etc) and pediatric and patients. Potassium 2019-10 No Notes: Memori a Chloride 0-05 (Same as: l 12:44: K-Dur 20) [place] 00 "Do Not Crush" Give with food and full glass of water For patients unable to swallow tablet, dissolve in one half glass of water. Allow about 2 minutes for the tablets to disintegra te. Stir before giving to prepare slurry and administer . Please exclude Patient s with feeding tube less than 14 Armenian (Dobhoff, J-tube etc) and pediatric and patients. [...] s with feeding tube less than 14 Armenian (Dobhoff, J-tube etc) and pediatric and patients. [...] s with feeding tube less than 14 Armenian (Dobhoff, J-tube etc) and pediatric and patients. Potassium 2019-10 No Notes: Memori a Chloride 0-04 (Same as: l 15:16: K-Dur 20) [place] 00 "Do Not Crush" Give with food and full glass of water For patients unable to swallow tablet, dissolve in one half glass of water. Allow about 2 minutes for the tablets to disintegra te. Stir before giving to prepare slurry and administer . Please exclude Patient s with feeding tube less than 14 Armenian (Dobhoff, J-tube etc) and pediatric and patients. Flagyl 2019-10 No Notes: Memoria 0-03 (Same as: l 23:00: Flagyl) [place] 00 Avoid alcohol. Flagyl 2019-10 No Notes: Memoria 0-03 (Same as: l 23:00: Flagyl) [place] 00 Avoid alcohol. Flagyl 2019-10 No Notes: Memoria 0-03 (Same as: l 23:00: Flagyl) [place] 00 Avoid alcohol. Potassium 2019-10 No Notes: [...] s with feeding tube less than 14 Armenian (Dobhoff, J-tube etc) and pediatric and patients. [...] s with feeding tube less than 14 Armenian (Dobhoff, J-tube etc) and pediatric and patients. Potassium 2019-10 No Notes: Memori a Chloride 0-03 (Same as: l 16:13: K-Dur 20) [place] 00 "Do Not Crush" Give with food and full glass of water For patients unable to swallow tablet, dissolve in one half glass of water. Allow about 2 minutes for the tablets to disintegra te. Stir before giving to prepare slurry and administer . Please exclude Patient s with feeding tube less than 14 Armenian (Dobhoff, J-tube etc) and pediatric and patients. [...] Memoria 0-01 (Same as: l 19:33: Zofran) [place] Zofran 2019-10 No Notes: Memoria 0-01 (Same as: l 19:33: Zofran) [place] 00 Dextrose 2019-10 No 12.5 gm, Memor [...] 0-01 Route: IM, l 19:27: Drug form: [place] 00 PDR/INJ, PRN, Dosing Weight 105, kg, [...] 0-01 25 mL, l (D50W) 19:27: Route: [place] 00 IVP, Drug Form: INJ, Dosing Weight 105, kg, PRN, PRN Blood Glucose Results, Start date: 07/09/20 14:27:00 CDT, Duration: 30 day, Stop date: 08/08/20 14:26:00 CDT, 0 Glucagon 2019-10 No 1 mg, Memoria 0-01 Route: IM, l 19:27: Drug form: [place] 00 PDR/INJ, PRN, Dosing Weight 105, kg, [...] s with feeding tube less than 14 Armenian (Dobhoff, J-tube etc) and pediatric and patients. [...] s with feeding tube less than 14 Armenian (Dobhoff, J-tube etc) and pediatric and patients. Potassium 2019-10 No Notes: Memori a Chloride 0-01 (Same as: l 15:51: K-Dur 20) [place] 00 "Do Not Crush" Give with food and full glass of water For patients unable to swallow tablet, dissolve in one half glass of water. Allow about 2 minutes for the tablets to disintegra te. Stir before giving to prepare slurry and administer . Please exclude Patient s with feeding tube less than 14 Armenian (Dobhoff, J-tube etc) and pediatric and patients. [...] s with feeding tube less than 14 Armenian (Dobhoff, J-tube etc) and pediatric and patients. [...] s with feeding tube less than 14 Armenian (Dobhoff, J-tube etc) and pediatric and patients. [...] s with feeding tube less than 14 Armenian (Dobhoff, J-tube etc) and pediatric and patients. Tylenol 0 No Notes: Do Memor ia 07-07 not exceed l 15:39: 4 gm/day. [place] 00 (Same as: Tylenol) Tylenol No Notes: Do Memor ia 07-07 not exceed l 15:39: 4 gm/day. [place] 00 (Same as: Tylenol) Tylenol No Notes: [...] lynn - (Same as: l 15:31: Apresoline [place] 00 ) May interfere w/enteral feedings. Take With Food Hydralazine 2019-0 No Notes: Kojo lynn -29 (Same as: l 15:31: Apresoline [place] 00 ) May interfere w/enteral feedings. Take With Food Hydralazine 2019-0 No Notes: Kojo lynn - (Same as: l 15:31: Apresoline [place] 00 ) May interfere w/enteral feedings. Take With Food Miralax 2019-0 No Notes: Memoria 07-07 Dissolve l 14:00: in 8 oz of [place] 00 water [...] Dissolve l 14:00: in 8 oz of [place] 00 water or juice. (Same as: Miralax) cefepime 0 No Notes: Memoria 07-07 (Same As: l 14:00: Maxipime) [place] 00 MEDICATION WASTE Product Size: 1000 mg Product Wasted: ___ mg Amlodipine No Notes: Memor ia 07-07 (Same as: l 14:00: Norvasc) enalapril No Notes: Memori a 07-07 (Same as: l 14:00: Vasotec) Miralax No Notes: [facility]oria 07-07 Dissolve l 14:00: in 8 oz of water or juice. (Same as: Miralax) cefepime No Notes: Memoria 07-07 (Same As: l 14:00: Maxipime) [place] 00 MEDICATION WASTE Product Size: 1000 mg Product Wasted: ___ mg Amlodipine No Notes: Memor ia 07-07 (Same as: l 14:00: Norvasc) enalapril No Notes: Memori a 07-07 (Same as: l 14:00: Vasotec) Potassium No Notes: Memori a Chloride 07-07 (Same as: l 13:: K-Dur 20) [place] 00 "Do Not Crush" Give with food and full glass of water For patients unable to swallow tablet, dissolve in one half glass of water. Allow about 2 minutes for the tablets to disintegra te. Stir before giving to prepare slurry and administer . Please exclude Patient s with feeding tube less than 14 Armenian (Dobhoff, J-tube etc) and pediatric and patients. [...] s with feeding tube less than 14 Armenian (Dobhoff, J-tube etc) and pediatric and patients. Potassium 2020-0 No Notes: Memori a Chloride 07-07 (Same as: l 13:: K-Dur 20) [place] "Do Not Crush" Give with food and full glass of water For patients unable to swallow tablet, dissolve in one half glass of water. Allow about 2 minutes for the tablets to disintegra te. Stir before giving to prepare slurry and administer . Please exclude Patient s with feeding tube less than 14 Armenian (Dobhoff, J-tube etc) and pediatric and patients. Epogen 2020-0 No Notes: Mem07-07 Same as: l 13:08: Retacrit) [place] 00 epoetin franca-epbx [id number] unit/1 ml VL. WASTE: F/P - Red; E Red MEDICATION WASTE Product Size: 91884 unit Product Wasted: ___ unit Epogen 2020-0 No Notes: 07-07 Same as: l 13:08: Retacrit) [place] 00 epoetin franca-epbx 38806 unit/1 ml VL. WASTE: F/P - Red; E Red MEDICATION WASTE Product Size: 36601 unit Product Wasted: ___ unit Epogen 2020-0 No Notes: 07-07 Same as: l 13:08: Retacrit) [place] 00 epoetin franca-epbx 12141 unit/1 ml VL. WASTE: F/P - Red; E Red MEDICATION WASTE Product Size: 77219 unit Product Wasted: ___ unit potassium 2020-0 [...] s with feeding tube less than 14 Armenian (Dobhoff, J-tube etc) and pediatric and patients. [...] s with feeding tube less than 14 Armenian (Dobhoff, J-tube etc) and pediatric and patients. [...] s with feeding tube less than 14 Armenian (Dobhoff, J-tube etc) and pediatric and patients. carvedilol 2020-0 No Notes: Memor ia 07-07 Give with l 02:00: food. [place] 00 (Same As: Coreg) tamsulosin 2020-0 No Notes: Memor ia 07-07 (Same As: l 02:00: Flomax) [place] 00 "Do Not Crush" carvedilol 2020-0 No Notes: Memor ia 07-07 Give with l 02:00: food. [place] 00 (Same As: Coreg) tamsulosin 2020-0 No Notes: Memor ia 07-07 (Same As: l 02:00: Flomax) [place] 00 "Do Not Crush" carvedilol 2020-0 No Notes: Memor ia 07-07 Give with l 02:00: food. [place] 00 (Same As: Coreg) tamsulosin 2020-0 No [...] sodium, 07-06 porcine l porcine 21:00: heparin [place] 2500 UNT/ML 00 Injectable Solution Hydralazine No [...] sodium, 07-06 porcine l porcine 21:00: heparin [place] 2500 UNT/ML 00 Injectable Solution Hydralazine No [...] moria 07-06 infuse l 18:00: over 2.5 [place] 00 hours For adult patients only: Round [...] Memoria 9 (Same as: l 17:42: Valium) [place] acetaminoph No Notes: Do M emoria en-codeine 07-06 not exceed l #3 17:42: 4gm/day of [place] 00 acetaminop hen. (Same as: Tylenol with Codeine # 3) Diazepam No Notes: Memoria 9- (Same as: l 17:42: Valium) [place] acetaminoph No Notes: Do M emoria en-codeine 07-06 not exceed l #3 17:42: 4gm/day of [place] acetaminop hen. (Same as: Tylenol with Codeine # 3) Diazepam No Notes: Memoria 07-06 (Same as: l 17:42: Valium) potassium No Notes: Memori a chloride 07-06 (Same as: l 16:00: Potassium [place] 00 Chloride) potassium No Notes: Memori a chloride - (Same as: l 16:00: Potassium [place] 00 Chloride) potassium No Notes: Memori a chloride - (Same as: l 16:00: Potassium [place] 00 Chloride) Hydromorpho No Notes: Kojo lynn ne 07-06 Same as: l 13:57: Dilaudid Acetaminoph No Notes: Do M emoria en 325 MG / 07-06 not exceed l Hydrocodone 13:57: 4gm/day of [place] Bitartrate 00 acetaminop 10 MG Oral hen. Tablet (Same as: [Hannah Hannah 10/325] 325/10) Hydromorpho No Notes: Kojo lynn ne 07-06 Same as: l 13:57: Dilaudid [place] Acetaminoph No Notes: Do M emoria en 325 MG / 07-06 not exceed l Hydrocodone 13:57: 4gm/day of [place] Bitartrate 00 acetaminop 10 MG Oral hen. Tablet (Same as: [Hannah Hannah 10/325] 325/10) Hydromorpho No Notes: Kojo lynn ne 07-06 Same as: l 13:57: Dilaudid [place] 00 Acetaminoph 2020-0 No Notes: Do M emoria en 325 MG / 07-06 not exceed l Hydrocodone 13:57: 4gm/day of [place] Bitartrate 00 acetaminop 10 MG Oral hen. Tablet (Same as: [Hannah Hannah 10/325] 325/10) Potassium 2020-0 No 60 mEq, [...] 07-06 Route: l 12:40: IVP, ONCE, [place] Dosing Weight 105, kg, Priority: STAT, Start date: 07/06/20 7:40:00 CDT, Stop date: 07/06/20 7:40:00 CDT Hydromorpho 2020-0 No 1 mg, Memor ia ne 07-06 Route: l 12:40: IVP, ONCE, [place] Dosing Weight 105, kg, Priority: STAT, Start date: 07/06/20 7:40:00 CDT, Stop date: 07/06/20 7:40:00 CDT Hydromorpho 2020-0 No 1 mg, Memor ia ne 07-06 Route: l 12:40: IVP, ONCE, [place] Dosing Weight 105, kg, Priority: STAT, Start [...] moria - infuse l 11:04: over 2.5 [place] 00 hours For adult patients only: Round to nearest 250 mg per Medical Staff approval MEDICATION WASTE Product Size: 1000 mg Product Wasted: ___ mg Vancomycin 2020-0 No 2000 mg: Me moria - infuse l 11:04: over 2.5 [place] 00 hours For adult patients only: Round to nearest 250 mg per Medical Staff approval MEDICATION WASTE Product Size: 1000 mg Product Wasted: ___ mg Vancomycin 2020-0 No 2000 mg: Me moria 07-06 infuse l 11:04: over 2.5 [place] 00 hours For adult patients only: Round to nearest 250 mg per Medical Staff approval MEDICATION WASTE Product Size: 1000 mg Product Wasted: ___ mg Morphine 2020-0 No Notes: Memoria - (Same l 10:32: as:MORPhin [place] 00 e Sulfate) Morphine 2020-0 No Notes: [...] by mouth ity of 02:04: at bedtime [place] 11 as needed Medical for Branch Insomnia. diazePAM 2020-0 Yes 10mg Take 10 mg Uni vers (VALIUM) 5 9-16 by mouth 2 ity of mg tablet 02:04: (two) [place] 11 times Medical daily as Branch needed. [...] 22 :00 Medical Branch ergocalcife 2020-0 Yes [id number] 50,000 Un seun rol -15 Units, ity of (vitamin 14:00: Oral, [place] d2) 00 QWEEKLY, Medical (CALCIFEROL First dose Br anch ) capsule on Tue 50,000 06/23/20 at Units 0900, Until Discontinu ed, Routine lactulose 2020-0 Yes 30mL 30 mL, Univer s (CEPHULAC) 9-15 Oral, ity of solution 30 14:00: DAILY, [place] 00 First dose Medical on [facility] 06/23/20 at 0900, Until Discontinu ed, Routine KCL 2020-0 2020- No 40meq 40 mEq, Univers (KLOR-CON 06-23-15 Oral, ity of M20) tablet 11:15: 10:51 ONCE, 1 [place] 40 mEq 00 :00 dose, [facility] 06/23/20 at Branch 0615, Routine amLODIPine 2020-0 Yes [id number] 10mg Take 1 U nivers 10 mg 9-15 tablet by ity of tablet 00:00: mouth [place] 00 daily. Medical Branch enalapril 2020-0 Yes [id number] 20mg Take 1 Un seun 20 mg 9-15 tablet by ity of tablet 00:00: mouth [place] 00 daily. Medical Branch hydrALAZINE 2020-0 Yes [id number] 50mg Take 1 [facility] 50 mg 9-15 tablet by ity of tablet 00:00: mouth [place] 00 every 8 Medical (eight) Branch hours. furosemide 2020-0 Yes [id number] 80mg Take 1 U nivers (LASIX) 80 9-15 tablet by ity of mg tablet 00:00: mouth [place] 00 every Medical morning Branch and evening. tamsulosin 2020-0 Yes [id number] .4mg Take 1 U nivers 0.4 mg 24 9-15 capsule by ity of hr capsule 00:00: mouth [place] 00 daily. Medical Branch amLODIPine 2020-0 Yes [id number] 10mg Take 1 U nivers 10 mg 9-15 tablet by ity of tablet 00:00: mouth [place] 00 daily. Medical Branch enalapril 2020-0 Yes [id number] 20mg Take 1 Un seun 20 mg 9-15 tablet by ity of tablet 00:00: mouth [place] 00 daily. Medical Branch hydrALAZINE 2020-0 Yes [id number] 50mg Take 1 [facility] 50 mg 9-15 tablet by ity of tablet 00:00: mouth [place] 00 every 8 Medical (eight) Branch hours. furosemide 2020-0 Yes [id number] 80mg Take 1 U nivers (LASIX) 80 9-15 tablet by ity of mg tablet 00:00: mouth [place] 00 every Medical morning Branch and evening. tamsulosin 2020-0 Yes [id number] .4mg Take 1 U nivers 0.4 mg 24 9-15 capsule by ity of hr capsule 00:00: mouth [place] 00 daily. Medical Branch amLODIPine 2020-0 Yes [id number] 10mg Take 1 U nivers 10 mg 9-15 tablet by ity of tablet 00:00: mouth [place] 00 daily. Medical Branch enalapril 2020-0 Yes [id number] 20mg Take 1 Un seun 20 mg 9-15 tablet by ity of tablet 00:00: mouth [place] 00 daily. Medical Branch hydrALAZINE 2020-0 Yes [id number] 50mg Take 1 [facility] 50 mg 9-15 tablet by ity of tablet 00:00: mouth [place] 00 every 8 Medical (eight) Branch hours. furosemide 2020-0 Yes [id number] 80mg Take 1 U nivers (LASIX) 80 9-15 tablet by ity of mg tablet 00:00: mouth [place] 00 every Medical morning Branch and evening. tamsulosin 2020-0 Yes [id number] .4mg Take 1 U nivers 0.4 mg 24 9-15 capsule by ity of hr capsule 00:00: mouth [place] 00 daily. Medical Branch amLODIPine 2020-0 Yes [id number] 10mg Take 1 U nivers 10 mg 9-15 tablet by ity of tablet 00:00: mouth [place] 00 daily. Medical Branch enalapril 2020-0 Yes [id number] 20mg Take 1 Un seun 20 mg 9-15 tablet by ity of tablet 00:00: mouth [place] 00 daily. Medical Branch hydrALAZINE 2020-0 Yes [id number] 50mg Take 1 [facility] 50 mg 9-15 tablet by ity of tablet 00:00: mouth [place] 00 every 8 Medical (eight) Branch hours. furosemide 2020-0 Yes [id number] 80mg Take 1 U nivers (LASIX) 80 9-15 tablet by ity of mg tablet 00:00: mouth [place] 00 every Medical morning Branch and evening. tamsulosin 2020-0 Yes [id number] .4mg Take 1 U nivers 0.4 mg 24 9-15 capsule by ity of hr capsule 00:00: mouth [place] 00 daily. Medical Branch amLODIPine 2020-0 Yes [id number] 10mg Take 1 U nivers 10 mg 9-15 tablet by ity of tablet 00:00: mouth [place] 00 daily. Medical Branch enalapril 2020-0 Yes [id number] 20mg Take 1 Un seun 20 mg 9-15 tablet by ity of tablet 00:00: mouth [place] 00 daily. Medical Branch hydrALAZINE 2020-0 Yes [id number] 50mg Take 1 [facility] 50 mg 9-15 tablet by ity of tablet 00:00: mouth [place] 00 every 8 Medical (eight) Branch hours. furosemide 2020-0 Yes [id number] 80mg Take 1 U nivers (LASIX) 80 9-15 tablet by ity of mg tablet 00:00: mouth [place] 00 every Medical morning Branch and evening. tamsulosin 2020-0 Yes [id number] .4mg Take 1 U nivers 0.4 mg 24 9-15 capsule by ity of hr capsule 00:00: mouth [place] 00 daily. Medical Branch amLODIPine 2020-0 Yes [id number] 10mg Take 1 U nivers 10 mg 9-15 tablet by ity of tablet 00:00: mouth [place] 00 daily. Medical Branch enalapril 2020-0 Yes [id number] 20mg Take 1 Un seun 20 mg 9-15 tablet by ity of tablet 00:00: mouth [place] 00 daily. Medical Branch hydrALAZINE 2020-0 Yes [id number] 50mg Take 1 Univers 50 mg 9-15 tablet by ity of tablet 00:00: mouth [place] 00 every 8 Medical (eight) Branch hours. furosemide 2020-0 Yes [id number] 80mg Take 1 U nivers (LASIX) 80 9-15 tablet by ity of mg tablet 00:00: mouth [place] 00 every Medical morning Branch and evening. tamsulosin 2020-0 Yes [id number] .4mg Take 1 U nivers 0.4 mg 24 9-15 capsule by ity of hr capsule 00:00: mouth [place] 00 daily. Medical Branch amLODIPine 2020-0 Yes [id number] 10mg Take 1 U nivers 10 mg 9-15 tablet by ity of tablet 00:00: mouth [place] 00 daily. Medical Branch enalapril 2020-0 Yes [id number] 20mg Take 1 Un seun 20 mg 9-15 tablet by ity of tablet 00:00: mouth [place] 00 daily. Medical Branch hydrALAZINE 2020-0 Yes [id number] 50mg Take 1 Univers 50 mg 9-15 tablet by ity of tablet 00:00: mouth [place] 00 every 8 Medical (eight) Branch hours. furosemide 2020-0 Yes [id number] 80mg Take 1 U nivers (LASIX) 80 9-15 tablet by ity of mg tablet 00:00: mouth [place] 00 every Medical morning Branch and evening. tamsulosin 2020-0 Yes [id number] .4mg Take 1 U nivers 0.4 mg 24 9-15 capsule by ity of hr capsule 00:00: mouth [place] 00 daily. Medical Branch amLODIPine 2020-0 Yes [id number] 10mg Take 1 U nivers 10 mg 9-15 tablet by ity of tablet 00:00: mouth [place] 00 daily. Medical Branch enalapril 2020-0 Yes [id number] 20mg Take 1 Un seun 20 mg 9-15 tablet by ity of tablet 00:00: mouth [place] 00 daily. Medical Branch hydrALAZINE 2020-0 Yes [id number] 50mg Take 1 Univers 50 mg 9-15 tablet by ity of tablet 00:00: mouth [place] 00 every 8 Medical (eight) Branch hours. furosemide 2020-0 Yes [id number] 80mg Take 1 U nivers (LASIX) 80 9-15 tablet by ity of mg tablet 00:00: mouth [place] 00 every Medical morning Branch and evening. tamsulosin 2020-0 Yes [id number] .4mg Take 1 U nivers 0.4 mg 24 9-15 capsule by ity of hr capsule 00:00: mouth [place] 00 daily. Medical Branch amLODIPine 2020-0 Yes [id number] 10mg Take 1 U nivers 10 mg 9-15 tablet by ity of tablet 00:00: mouth [place] 00 daily. Medical Branch enalapril 2020-0 Yes [id number] 20mg Take 1 Un seun 20 mg 9-15 tablet by ity of tablet 00:00: mouth [place] 00 daily. Medical Branch hydrALAZINE 2020-0 Yes [id number] 50mg Take 1 [facility] 50 mg 9-15 tablet by ity of tablet 00:00: mouth [place] 00 every 8 Medical (eight) Branch hours. furosemide 2020-0 Yes [id number] 80mg Take 1 U nivers (LASIX) 80 9-15 tablet by ity of mg tablet 00:00: mouth [place] 00 every Medical morning Branch and evening. tamsulosin 2020-0 Yes [id number] .4mg Take 1 U nivers 0.4 mg 24 9-15 capsule by ity of hr capsule 00:00: mouth [place] 00 daily. Medical Branch amLODIPine 2020-0 Yes [id number] 10mg Take 1 U nivers 10 mg 9-15 tablet by ity of tablet 00:00: mouth [place] 00 daily. Medical Branch enalapril 2020-0 Yes [id number] 20mg Take 1 Un seun 20 mg 9-15 tablet by ity of tablet 00:00: mouth [place] 00 daily. Medical Branch hydrALAZINE 2020-0 Yes [id number] 50mg Take 1 Univers 50 mg 9-15 tablet by ity of tablet 00:00: mouth [place] 00 every 8 Medical (eight) Branch hours. furosemide 2020-0 Yes [id number] 80mg Take 1 U nivers (LASIX) 80 9-15 tablet by ity of mg tablet 00:00: mouth [place] 00 every Medical morning Branch and evening. tamsulosin 2020-0 Yes [id number] .4mg Take 1 U nivers 0.4 mg 24 9-15 capsule by ity of hr capsule 00:00: mouth [place] 00 daily. Medical Branch amLODIPine 2020-0 Yes [id number] 10mg Take 1 U nivers 10 mg 9-15 tablet by ity of tablet 00:00: mouth [place] 00 daily. Medical Branch enalapril 2020-0 Yes [id number] 20mg Take 1 Un seun 20 mg 9-15 tablet by ity of tablet 00:00: mouth [place] 00 daily. Medical Branch hydrALAZINE 2020-0 Yes [id number] 50mg Take 1 Univers 50 mg 9-15 tablet by ity of tablet 00:00: mouth [place] 00 every 8 Medical (eight) Branch hours. furosemide 2020-0 Yes [id number] 80mg Take 1 U nivers (LASIX) 80 9-15 tablet by ity of mg tablet 00:00: mouth [place] 00 every Medical morning Branch and evening. tamsulosin 2020-0 Yes [id number] .4mg Take 1 U nivers 0.4 mg 24 9-15 capsule by ity of hr capsule 00:00: mouth [place] 00 daily. Medical Branch amLODIPine 2020-0 Yes [id number] 10mg Take 1 U nivers 10 mg 9-15 tablet by ity of tablet 00:00: mouth [place] 00 daily. Medical Branch enalapril 2020-0 Yes [id number] 20mg Take 1 Un seun 20 mg 9-15 tablet by ity of tablet 00:00: mouth [place] 00 daily. Medical Branch hydrALAZINE 2020-0 Yes [id number] 50mg Take 1 [facility] 50 mg 9-15 tablet by ity of tablet 00:00: mouth [place] 00 every 8 Medical (eight) Branch hours. furosemide 2020-0 Yes [id number] 80mg Take 1 U nivers (LASIX) 80 9-15 tablet by ity of mg tablet 00:00: mouth [place] 00 every Medical morning Branch and evening. tamsulosin 2020-0 Yes [id number] .4mg Take 1 U nivers 0.4 mg 24 9-15 capsule by ity of hr capsule 00:00: mouth [place] 00 daily. Medical Branch amLODIPine 2020-0 Yes [id number] 10mg Take 1 U nivers 10 mg 9-15 tablet by ity of tablet 00:00: mouth [place] 00 daily. Medical Branch enalapril 2020-0 Yes [id number] 20mg Take 1 Un seun 20 mg 9-15 tablet by ity of tablet 00:00: mouth [place] 00 daily. Medical Branch hydrALAZINE 2020-0 Yes [id number] 50mg Take 1 Univers 50 mg 9-15 tablet by ity of tablet 00:00: mouth [place] 00 every 8 Medical (eight) Branch hours. furosemide 2020-0 Yes [id number] 80mg Take 1 U nivers (LASIX) 80 9-15 tablet by ity of mg tablet 00:00: mouth [place] 00 every Medical morning Branch and evening. tamsulosin 2020-0 Yes [id number] .4mg Take 1 U nivers 0.4 mg 24 9-15 capsule by ity of hr capsule 00:00: mouth [place] 00 daily. Medical Branch amLODIPine 2020-0 Yes [id number] 10mg Take 1 U nivers 10 mg 9-15 tablet by ity of tablet 00:00: mouth [place] 00 daily. Medical Branch enalapril 2020-0 Yes [id number] 20mg Take 1 Un seun 20 mg 9-15 tablet by ity of tablet 00:00: mouth [place] 00 daily. Medical Branch hydrALAZINE 2020-0 Yes [id number] 50mg Take 1 Univers 50 mg 9-15 tablet by ity of tablet 00:00: mouth [place] 00 every 8 Medical (eight) Branch hours. furosemide 2020-0 Yes [id number] 80mg Take 1 U nivers (LASIX) 80 9-15 tablet by ity of mg tablet 00:00: mouth [place] 00 every Medical morning Branch and evening. tamsulosin 2020-0 Yes [id number] .4mg Take 1 U nivers 0.4 mg 24 9-15 capsule by ity of hr capsule 00:00: mouth [place] 00 daily. Medical Branch amLODIPine 2020-0 Yes [id number] 10mg Take 1 U nivers 10 mg 9-15 tablet by ity of tablet 00:00: mouth [place] 00 daily. Medical Branch enalapril 2020-0 Yes [id number] 20mg Take 1 Un seun 20 mg 9-15 tablet by ity of tablet 00:00: mouth [place] 00 daily. Medical Branch hydrALAZINE 2020-0 Yes [id number] 50mg Take 1 [facility] 50 mg 9-15 tablet by ity of tablet 00:00: mouth [place] 00 every 8 Medical (eight) Branch hours. furosemide 2020-0 Yes [id number] 80mg Take 1 U nivers (LASIX) 80 9-15 tablet by ity of mg tablet 00:00: mouth [place] 00 every Medical morning Branch and evening. tamsulosin 2020-0 Yes [id number] .4mg Take 1 U nivers 0.4 mg 24 9-15 capsule by ity of hr capsule 00:00: mouth [place] 00 daily. Medical Branch amLODIPine 2020-0 Yes [id number] 10mg Take 1 U nivers 10 mg 9-15 tablet by ity of tablet 00:00: mouth [place] 00 daily. Medical Branch enalapril 2020-0 Yes [id number] 20mg Take 1 Un seun 20 mg 9-15 tablet by ity of tablet 00:00: mouth [place] 00 daily. Medical Branch hydrALAZINE 2020-0 Yes [id number] 50mg Take 1 Univers 50 mg 9-15 tablet by ity of tablet 00:00: mouth [place] 00 every 8 Medical (eight) Branch hours. furosemide 2020-0 Yes [id number] 80mg Take 1 U nivers (LASIX) 80 9-15 tablet by ity of mg tablet 00:00: mouth [place] 00 every Medical morning Branch and evening. tamsulosin 2020-0 Yes [id number] .4mg Take 1 U nivers 0.4 mg 24 9-15 capsule by ity of hr capsule 00:00: mouth [place] 00 daily. Medical Branch amLODIPine 2020-0 Yes [id number] 10mg Take 1 U nivers 10 mg 9-15 tablet by ity of tablet 00:00: mouth [place] 00 daily. Medical Branch enalapril 2020-0 Yes [id number] 20mg Take 1 Un seun 20 mg 9-15 tablet by ity of tablet 00:00: mouth [place] 00 daily. Medical Branch hydrALAZINE 2020-0 Yes [id number] 50mg Take 1 [facility] 50 mg 9-15 tablet by ity of tablet 00:00: mouth [place] 00 every 8 Medical (eight) Branch hours. furosemide 2020-0 Yes [id number] 80mg Take 1 U nivers (LASIX) 80 9-15 tablet by ity of mg tablet 00:00: mouth [place] 00 every Medical morning Branch and evening. tamsulosin 2020-0 Yes [id number] .4mg Take 1 U nivers 0.4 mg 24 9-15 capsule by ity of hr capsule 00:00: mouth [place] 00 daily. Medical Branch amLODIPine 2020-0 Yes [id number] 10mg Take 1 U nivers 10 mg 9-15 tablet by ity of tablet 00:00: mouth [place] 00 daily. Medical Branch enalapril 2020-0 Yes [id number] 20mg Take 1 Un seun 20 mg 9-15 tablet by ity of tablet 00:00: mouth [place] 00 daily. Medical Branch hydrALAZINE 2020-0 Yes [id number] 50mg Take 1 [facility] 50 mg 9-15 tablet by ity of tablet 00:00: mouth [place] 00 every 8 Medical (eight) Branch hours. furosemide 2020-0 Yes [id number] 80mg Take 1 [facility] nivers (LASIX) 80 9-15 tablet by ity of mg tablet 00:00: mouth [place] 00 every Medical morning Branch and evening. tamsulosin 2020-0 Yes [id number] .4mg Take 1 [facility] nivers 0.4 mg 24 9-15 capsule by ity of hr capsule 00:00: mouth [place] 00 daily. Medical Branch amLODIPine 2020-0 Yes [id number] 10mg Take 1 [facility] nivers 10 mg 9-15 tablet by ity of tablet 00:00: mouth [place] 00 daily. Medical Branch enalapril 2020-0 Yes [id number] 20mg Take 1 Un seun 20 mg 9-15 tablet by ity of tablet 00:00: mouth [place] 00 daily. Medical Branch hydrALAZINE 2020-0 Yes [id number] 50mg Take 1 [facility] 50 mg 9-15 tablet by ity of tablet 00:00: mouth [place] 00 every 8 Medical (eight) Branch hours. furosemide 2020-0 Yes [id number] 80mg Take 1 [facility] nivers (LASIX) 80 9-15 tablet by ity of mg tablet 00:00: mouth [place] 00 every Medical morning Branch and evening. tamsulosin 2020-0 Yes [id number] .4mg Take 1 [facility] nivers 0.4 mg 24 9-15 capsule by ity of hr capsule 00:00: mouth [place] 00 daily. Medical Branch amLODIPine 2020-0 Yes [id number] 10mg Take 1 [facility] nivers 10 mg 9-15 tablet by ity of tablet 00:00: mouth [place] 00 daily. Medical Branch enalapril 2020-0 Yes [id number] 20mg Take 1 Un seun 20 mg 9-15 tablet by ity of tablet 00:00: mouth [place] 00 daily. Medical Branch hydrALAZINE 2020-0 Yes [id number] 50mg Take 1 [facility] 50 mg 9-15 tablet by ity of tablet 00:00: mouth [place] 00 every 8 Medical (eight) Branch hours. furosemide 2020-0 Yes [id number] 80mg Take 1 [facility] nivers (LASIX) 80 9-15 tablet by ity of mg tablet 00:00: mouth [place] 00 every Medical morning Branch and evening. tamsulosin 2020-0 Yes [id number] .4mg Take 1 [facility] nivers 0.4 mg 24 9-15 capsule by ity of hr capsule 00:00: mouth [place] 00 daily. Medical Branch amLODIPine 2020-0 Yes [id number] 10mg Take 1 [facility] n[facility] 10 mg 9-15 tablet by ity of tablet 00:00: mouth [place] 00 daily. Medical Branch enalapril 2020-0 Yes [id number] 20mg Take 1 Un seun 20 mg 9-15 tablet by ity of tablet 00:00: mouth [place] 00 daily. Medical Branch hydrALAZINE 2020-0 Yes [id number] 50mg Take 1 [facility] 50 mg 9-15 tablet by ity of tablet 00:00: mouth [place] 00 every 8 Medical (eight) Branch hours. furosemide 2020-0 Yes [id number] 80mg Take 1 [facility] n[facility] (LASIX) 80 9-15 tablet by ity of mg tablet 00:00: mouth [place] 00 every Medical morning Branch and evening. tamsulosin 2020-0 Yes [id number] .4mg Take 1 [facility] nivers 0.4 mg 24 9-15 capsule by ity of hr capsule 00:00: mouth [place] 00 daily. Medical Branch amLODIPine 2020-0 Yes [id number] 10mg Take 1 [facility] 10 mg 9-15 tablet by ity of tablet 00:00: mouth [place] 00 daily. Medical Branch enalapril 2020-0 Yes [id number] 20mg Take 1 Un se[facility] 20 mg 9-15 tablet by ity of tablet 00:00: mouth [place] 00 daily. Medical Branch hydrALAZINE 2020-0 Yes [id number] 50mg Take 1 [facility] 50 mg 9-15 tablet by ity of tablet 00:00: mouth [place] 00 every 8 Medical (eight) Branch hours. furosemide 2020-0 Yes [id number] 80mg Take 1 [facility] nivers (LASIX) 80 9-15 tablet by ity of mg tablet 00:00: mouth [place] 00 every Medical morning Branch and evening. tamsulosin 2020-0 Yes [id number] .4mg Take 1 U nivers 0.4 mg 24 9-15 capsule by ity of hr capsule 00:00: mouth [place] 00 daily. Medical Branch furosemide 2020-0 Yes [id number] 80mg Take 1 [facility] nivers (LASIX) 80 9-15 tablet by ity of mg tablet 00:00: mouth [place] 00 every Medical morning Branch and evening. tamsulosin 2020-0 Yes [id number] .4mg Take 1 [facility] nivers 0.4 mg 24 9-15 capsule by ity of hr capsule 00:00: mouth [place] 00 daily. Medical Branch furosemide 2020-0 Yes [id number] 80mg Take 1 [facility] n[facility] (LASIX) 80 9-15 tablet by ity of mg tablet 00:00: mouth [place] 00 every Medical morning Branch and evening. tamsulosin 2020-0 Yes [id number] .4mg Take 1 U nivers 0.4 mg 24 9-15 capsule by ity of hr capsule 00:00: mouth [place] 00 daily. Medical Branch furosemide 2020-0 Yes [id number] 80mg Take 1 [facility] n[facility] (LASIX) 80 9-15 tablet by ity of mg tablet 00:00: mouth [place] 00 every Medical morning Branch and evening. tamsulosin 2020-0 Yes [id number] .4mg Take 1 U nivers 0.4 mg 24 9-15 capsule by ity of hr capsule 00:00: mouth [place] 00 daily. Medical Branch furosemide 2020-0 Yes [id number] 80mg Take 1 [facility] nivers (LASIX) 80 9-15 tablet by ity of mg tablet 00:00: mouth [place] 00 every Medical morning Branch and evening. tamsulosin 2020-0 Yes [id number] .4mg Take 1 U nivers 0.4 mg 24 9-15 capsule by ity of hr capsule 00:00: mouth [place] 00 daily. Medical Branch furosemide 2020-0 Yes [id number] 80mg Take 1 U nivers (LASIX) 80 9-15 tablet by ity of mg tablet 00:00: mouth [place] 00 every Medical morning Branch and evening. tamsulosin 2020-0 Yes [id number] .4mg Take 1 U nivers 0.4 mg 24 9-15 capsule by ity of hr capsule 00:00: mouth [place] 00 daily. Medical Branch furosemide 2020-0 Yes [id number] 80mg Take 1 [facility] nivers (LASIX) 80 9-15 tablet by ity of mg tablet 00:00: mouth [place] 00 every Medical morning Branch and evening. tamsulosin 2020-0 Yes [id number] .4mg Take 1 U nivers 0.4 mg 24 9-15 capsule by ity of hr capsule 00:00: mouth [place] 00 daily. Medical Branch furosemide 2020-0 Yes [id number] 80mg Take 1 U nivers (LASIX) 80 9-15 tablet by ity of mg tablet 00:00: mouth [place] 00 every Medical morning Branch and evening. tamsulosin 2020-0 Yes [id number] .4mg Take 1 U nivers 0.4 mg 24 9-15 capsule by ity of hr capsule 00:00: mouth [place] 00 daily. Medical Branch furosemide 2020-0 Yes [id number] 80mg Take 1 [facility] nivers (LASIX) 80 9-15 tablet by ity of mg tablet 00:00: mouth [place] 00 every Medical morning Branch and evening. tamsulosin 2020-0 Yes [id number] .4mg Take 1 U nivers 0.4 mg 24 9-15 capsule by ity of hr capsule 00:00: mouth [place] 00 daily. Medical Branch furosemide 2020-0 Yes [id number] 80mg Take 1 U nivers (LASIX) 80 9-15 tablet by ity of mg tablet 00:00: mouth [place] 00 every Medical morning Branch and evening. tamsulosin 2020-0 Yes [id number] .4mg Take 1 U nivers 0.4 mg 24 9-15 capsule by ity of hr capsule 00:00: mouth [place] 00 daily. Medical Branch furosemide 2019- Yes [id number] 80mg Take 1 U nivers (LASIX) 80 9-15 tablet by ity of mg tablet 00:00: mouth [place] 00 every Medical morning Branch and evening. tamsulosin Yes [id number] .4mg Take 1 U nivers 0.4 mg 24 9-15 capsule by ity of hr capsule 00:00: mouth [place] 00 daily. Medical Branch amLODIPine 2020- No [id number] 10mg Take 1 [facility] 10 mg 9-15 07-15 tablet by ity of tablet 00:00: 00:00 mouth [place] 00 :00 daily. Medical Branch enalapril 2020- No [id number] 20mg Take 1 U nivers 20 mg 9-15 07-15 tablet by ity of tablet 00:00: 00:00 mouth [place] 00 :00 daily. Medical Branch hydrALAZINE 2020- No [id number] 50mg Take 1 [facility] 50 mg 9-15 07-15 tablet by ity of tablet 00:00: 00:00 mouth [place] 00 :00 every 8 Medical (eight) Branch hours. amLODIPine 2020- No [id number] 10mg Take 1 [facility] 10 mg 9-15 07-15 tablet by ity of tablet 00:00: 00:00 mouth [place] 00 :00 daily. Medical Branch enalapril 2020- No [id number] 20mg Take 1 U nivers 20 mg 9-15 07-15 tablet by ity of tablet 00:00: 00:00 mouth [place] 00 :00 daily. Medical Branch hydrALAZINE 2020- No [id number] 50mg Take 1 [facility] 50 mg 9-15 07-15 tablet by ity of tablet 00:00: 00:00 mouth [place] 00 :00 every 8 Medical (eight) Branch hours. amLODIPine 2020- No [id number] 10mg Take 1 [facility] 10 mg 9-15 07-15 tablet by ity of tablet 00:00: 00:00 mouth [place] 00 :00 daily. Medical Branch enalapril 2020- No [id number] 20mg Take 1 U nivers 20 mg 9-15 07-15 tablet by ity of tablet 00:00: 00:00 mouth [place] 00 :00 daily. Medical Branch hydrALAZINE 2019-0 2020- No [id number] 50mg Take 1 [facility] 50 mg 06-23 [...] ONCE, 1 [place] ENEMA) 00 :00 dose, [facility] Medical (COMPOUNDED 06/22/20 at Br anch ) Enem 225 1145, mL Routine gentamicin 2020-0 Yes Topical, Uni vers 0.1 % cream 06-22 DAILY, ity of 14:00: First dose [place] 00 on [facility] 06/22/20 at Branch 0900, Until Discontinu ed, Routine zolpidem 2020-0 Yes 5mg 5 mg, Univers (AMBIEN) 06-22 Oral, ity of tablet 5 mg 06:19: QHSPRN, [place] 53 Starting [facility] 06/22/20 at 0119, Until Discontinu ed, Routine, [...] 15:10: Q8HPRN, [place] mg 32 Starting Medical [facility] 06/21/20 at 1010, Until Discontinu ed, Routine, Itching, Anxiety sennosides 2020-0 Yes 8.6mg 8.6 mg, Uni vers (SENOKOT) 9- Oral, ity of tablet 8.6 14:00: DAILY, [place] mg 00 First dose Medical on [facility] 06/21/20 at 0900, Until Discontinu ed, Routine tamsulosin 2020-0 Yes .4mg 0.4 mg, Univ ers (FLOMAX) - Oral, ity of capsule 0.4 14:00: DAILY, [place] 00 First dose Medical on [facility] 06/21/20 at 0900, Until Discontinu ed, Routine furosemide 2020-0 Yes 80mg 80 mg, Unive rs (LASIX) - Oral, ity of tablet 80 14:00: QAM+PM, [place] mg 00 First dose Medical on [facility] 06/21/20 at 0900, Until Discontinu ed, Routine enalapril 2020-0 Yes 20mg 20 mg, Univer s (VASOTEC) 06-21 Oral, ity of tablet 20 14:00: DAILY, [place] mg 00 First dose Medical on [facility] 06/21/20 at 0900, Until Discontinu ed, Routine amLODIPine 2020-0 Yes 10mg 10 mg, Unive rs (NORVASC) - Oral, ity of tablet 10 14:00: DAILY, [place] mg 00 First dose Medical on [facility] 06/21/20 at 0900, Until Discontinu ed, Routine morpHINE 2020-0 2020- No 2mg 2 mg, Slow Un seun injection 2 06-21 IV Push, ity of mg 13:15: 14:26 ONCE, 1 [place] 00 :00 dose, [facility] 06/21/20 at Branch 0815, Routine heparin 2020-0 Yes 5000U 5,000 [facility] (porcine) 06-21 Units, ity of injection 13:00: Subcut[place]o [place] 5,000 Units 00 us, Q12H, Med ical First dose Branch on [place] 06/21/20 at 0800, Until Discontinu ed, Routine calcium 2020-0 Yes 1334mg 1,334 mg, Uni vers acetate(sherry - Oral, TID ity of sphat bind) 13:00: MEALS, [place] (PHOSLO) 00 First dose Medic al capsule on [facility] 1,334 mg 06/21/20 at 0800, Until Discontinu ed, Routine Polyethylen 2020-0 Yes 17g 17 g, Unive rs e Glycol - Oral, BID, ity o f 3350 12:30: First dose [place] (MIRALAX) 00 on [facility] powder 17 g 06/21/20 at Br anch 0730, Until Discontinu ed, Routine KCL 2020-0 2020- No 40meq 40 mEq, Univers (KLOR-CON 06-21 Oral, ity of M20) tablet 12:00: 14:25 ONCE, 1 [place] 40 mEq 00 :00 dose, [facility] 06/21/20 at Branch 0700, Routine hydrALAZINE 2020-0 Yes 50mg 50 mg, Univ ers (APRESOLINE 06-21 Oral, Q8H, it y of ) tablet 50 11:00: First dose [place] mg 00 on [facility] 06/21/20 at Branch 0600, Until Discontinu ed, Routine acetaminoph 2020-0 Yes 650mg 650 mg, Un seun en 06-21 Oral, ity of (TYLENOL) 06:39: Q6HPRN, [place] tablet 650 09 Starting Medic al mg [facility] 06/21/20 at 0139, Until Discontinu ed, Routine, Pain (scale 1-3) diazePAM 2020-0 Yes 10mg 10 mg, Univers (VALIUM) 06-21 Oral, ity of tablet 10 06:37: BIDPRN, [place] mg 24 Starting Medical [facility] 06/21/20 at 0137, Until Discontinu ed, Routine, Anxiety hydrOXYzine 2020-0 2020- No 12.5mg 12.5 mg, Univers (ATARAX) 06-21 Oral, ity of tablet 12.5 05:15: 04:44 ONCE, 1 [place] mg 00 :00 dose, [facility] 06/21/20 at Branch 0015, [place] morpHINE 2020-0 [...] 1 [place] mg [place] :00 dose, [facility] Medical 06/20/20 at Branch 1815, [place] HYDROcodone 2020-0 2020- No 1{tbl} 1 tablet, Univers -acetaminop 06-20 Oral, ity of hen (NORCO) 23:15: 22:31 ONCE, 1 [place] 10-325 mg 00 :00 dose, Sat Medic al tablet 1 06/20/20 at [facility] tablet 1815, Routine ondansetron 2019-0 2020- No 4mg 4 mg, Slow Univers (ZOFRAN 06-20 IV Push, ity of (PF)) 22:15: 21:23 ONCE, 1 [place] injection 4 00 :00 dose, Sat Med ical mg 06/20/20 at Branch 1715, [place] morpHINE 2019-0 2020- No 4mg 4 mg, Slow Un seun injection 4 06-20 IV Push, ity of mg 22:15: 21:23 ONCE, 1 [place] 00 :00 dose, [facility] 06/20/20 at Branch 1715, STAT KCL 2019-0 2020- No 40meq 40 mEq, Univers (KLOR-CON 06-20 Oral, ity of M20) tablet 22:15: 21:23 ONCE, 1 [place] 40 mEq 00 :00 dose, [facility] 06/20/20 at Branch 1715, ALLISON aspirin 2020-0 2020- No 324mg 324 mg, Unive rs chewable 06-20 Oral, ity of tablet 324 21:45: 20:42 ONCE, 1 [place] mg 00 :00 dose, [facility] 06/20/20 at Branch 1645, Routine nitroglycer 2020-0 2020- No .5[in_u 0.5 Inch, Univers in (NITROL) 06-20 s] Transderma i ty of 2 % 21:45: 20:41 l (Apply [place] ointment 00 :00 To Skin), Medica l 0.5 Inch ONCE, 1 [place] dose, 06/20/20 at 1645, ALLISON peg-electro 2020-0 [...] Dissolve l 13:33: in 8 oz of [place] 00 water or juice. (Same as: Miralax) Miralax 2020-0 No Notes: [facility] 8-13 Dissolve l 13:33: in 8 oz of [place] 00 water or juice. (Same as: Miralax) Miralax 2020-0 No Notes: [place] 8-13 Dissolve l 13:33: in 8 oz of [place] 00 water or juice. (Same as: Miralax) iohexol 2020-0 2020- No 150mL 150 mL, Unive rs (OMNIPAQUE 04-28 Intravenou it y of 350 17:45: 17:08 s, ONCE, 1 [place] BULK-150 00 :00 dose, Tue Medica l mL) 04/28/20 at Branch injection 1245, 150 mL Routine peg-electro 2020-0 Yes [id number] Take as [facility] lyte soln 04-28 directed ity of 236-22.74-6 00:00: before [place] .74 -5.86 00 colonoscop Medi sony gram y Branch solution peg-electro 2020-0 Yes [id number] Take as [facility] lyte soln - directed ity of 236-22.74-6 00:00: [place] .74 -5.86 00 colonoscop Medi sony gram y Branch solution peg-electro 2020-0 Yes [id number] Take as [facility] lyte soln - directed ity of 236-22.74-6 00:00: before [place] .74 -5.86 00 colonoscop Medi sony gram y Branch solution peg-electro 2020-0 Yes [id number] Take as [facility] lyte soln - directed ity of 236-22.74-6 00:00: before [place] .74 -5.86 00 colonoscop Medi sony gram y Branch solution peg-electro 2020-0 2020- No [id number] Take as Univers lyte soln -06-21 directed [...] Until Discontinu ed, Routine amLODIPine 2020-0 Yes [id number] 10mg Take 1 U nivers 10 mg 6-23 tablet by ity of tablet 00:00: mouth [place] 00 daily. Medical Branch pantoprazol 2020-0 Yes [id number] 40mg Take 1 Univers e 40 mg EC 6-23 tablet by ity of tablet 00:00: mouth [place] 00 daily. Medical Branch amLODIPine 2020-0 Yes [id number] 10mg Take 1 U nivers 10 mg 6-23 tablet by ity of tablet 00:00: mouth [place] 00 daily. Medical Branch pantoprazol 2020-0 Yes [id number] 40mg Take 1 [facility] e 40 mg EC 6-23 tablet by ity of tablet 00:00: mouth [place] 00 daily. Medical Branch amLODIPine 2019-0 Yes [id number] 10mg Take 1 U nivers 10 mg 6-23 tablet by ity of tablet 00:00: mouth [place] 00 daily. Medical Branch pantoprazol 2020-0 Yes [id number] 40mg Take 1 [facility] e 40 mg EC 6-23 tablet by ity of tablet 00:00: mouth [place] 00 daily. Medical Branch amLODIPine 2019-0 Yes [id number] 10mg Take 1 U nivers 10 mg 6-23 tablet by ity of tablet 00:00: mouth [place] 00 daily. Medical Branch pantoprazol 2020-0 Yes [id number] 40mg Take 1 [facility] e 40 mg EC 6-23 tablet by ity of tablet 00:00: mouth [place] 00 daily. Medical Branch amLODIPine 2020-0 Yes [id number] 10mg Take 1 U nivers 10 mg 6-23 tablet by ity of tablet 00:00: mouth [place] 00 daily. Medical Branch pantoprazol 2020-0 Yes [id number] 40mg Take 1 Univers e 40 mg EC 6-23 tablet by ity of tablet 00:00: mouth [place] 00 daily. Medical Branch amLODIPine 2020-0 Yes [id number] 10mg Take 1 U nivers 10 mg 6-23 tablet by ity of tablet 00:00: mouth [place] 00 daily. [facility] Branch pantoprazol 2020-0 Yes [id number] 40mg Take 1 Univers e 40 mg EC 6-23 tablet by ity of tablet 00:00: mouth [place] 00 daily. [facility] Branch amLODIPine 2020-0 Yes [id number] 10mg Take 1 U nivers 10 mg 6-23 tablet by ity of tablet 00:00: mouth [place] 00 daily. Medical Branch pantoprazol 2020-0 Yes [id number] 40mg Take 1 Univers e 40 mg EC 6-23 tablet by ity of tablet 00:00: mouth [place] 00 daily. Medical Branch amLODIPine 2020-0 Yes [id number] 10mg Take 1 U nivers 10 mg 6-23 tablet by ity of tablet 00:00: mouth [place] 00 daily. Medical Branch pantoprazol 2020-0 Yes [id number] 40mg Take 1 [facility] e 40 mg EC 6-23 tablet by ity of tablet 00:00: mouth [place] 00 daily. Medical Branch amLODIPine 2020-0 Yes [id number] 10mg Take 1 U nivers 10 mg 6-23 tablet by ity of tablet 00:00: mouth [place] 00 daily. Medical Branch pantoprazol 2020-0 Yes [id number] 40mg Take 1 [facility] e 40 mg EC 6-23 tablet by ity of tablet 00:00: mouth [place] 00 daily. Medical Branch amLODIPine 2020-0 Yes [id number] 10mg Take 1 U nivers 10 mg 6-23 tablet by ity of tablet 00:00: mouth [place] 00 daily. Medical Branch pantoprazol 2020-0 Yes [id number] 40mg Take 1 [facility] e 40 mg EC 6-23 tablet by ity of tablet 00:00: mouth [place] 00 daily. Medical Branch amLODIPine 2020-0 Yes [id number] 10mg Take 1 U nivers 10 mg 6-23 tablet by ity of tablet 00:00: mouth [place] 00 daily. Medical Branch pantoprazol 2020-0 Yes [id number] 40mg Take 1 [facility] e 40 mg EC 6-23 tablet by ity of tablet 00:00: mouth [place] 00 daily. Medical Branch amLODIPine 2020-0 Yes [id number] 10mg Take 1 U nivers 10 mg 6-23 tablet by ity of tablet 00:00: mouth [place] 00 daily. Medical Branch pantoprazol 2020-0 Yes [id number] 40mg Take 1 [facility] e 40 mg EC 6-23 tablet by ity of tablet 00:00: mouth [place] 00 daily. Medical Branch amLODIPine 2020-0 Yes [id number] 10mg Take 1 U nivers 10 mg 6-23 tablet by ity of tablet 00:00: mouth [place] 00 daily. Medical Branch pantoprazol 2020-0 Yes [id number] 40mg Take 1 [facility] e 40 mg EC 6-23 tablet by ity of tablet 00:00: mouth [place] 00 daily. Medical Branch amLODIPine 2020-0 2020- No [id number] 10mg Take 1 [facility] 10 mg 03-3115 tablet by ity of tablet 00:00: 00:00 mouth [place] 00 :00 daily. Medical Branch pantoprazol 2020-0 2020- No [id number] 40mg Take 1 [facility] e 40 mg [...] mouth ity of hr capsule 21:48: daily. [place] [address] Medical Branch zolpidem 10 2020-0 Yes 10mg Take 10 mg [facility] mg tablet 6-22 by mouth ity of 21:48: at bedtime [place] [address] as needed Medical for Branch Insomnia. diazePAM 2020-0 Yes 5mg Take 5 mg Univ ers (VALIUM) 5 6-22 by mouth ity o f mg tablet 21:48: at [place] [address] bedtime. Medical Branch hydralAZINE 2020-0 Yes 50mg Take 50 mg [facility] 50 mg 6-22 by mouth ity of tablet 21:48: every 8 [place] [address] (eight) Medical hours. Branch vitamin b 2020-0 Yes 1{tbl} Take 1 Univ ers complex-vit 6-22 tablet by ity of villatoro 21:48: mouth [place] c-folic 54 daily. Medical acid Branch (FAUZIA-CONOR) 0.8 mg tablet tamsulosin 2020-0 Yes Take by Uni vers 0.4 mg 24 6-22 mouth ity of hr capsule 21:48: daily. [place] [address] Medical Branch zolpidem 10 2020-0 Yes 10mg Take 10 mg [facility] mg tablet 6-22 by mouth ity of 21:48: at bedtime [place] [address] as needed Medical for Branch Insomnia. diazePAM 2020-0 Yes 5mg Take 5 mg Univ ers (VALIUM) 5 6-22 by mouth ity o f mg tablet 21:48: at [place] [address] bedtime. Medical Branch hydralAZINE 2020-0 Yes 50mg Take 50 mg [facility] 50 mg 6-22 by mouth ity of tablet 21:48: every 8 [place] [address] (eight) Medical hours. Branch vitamin b 2020-0 Yes 1{tbl} Take 1 Univ ers complex-vit 6-22 tablet by ity of villatoro 21:48: mouth [place] c-folic 54 daily. Medical acid Branch (FAUZIA-CONOR) 0.8 mg tablet tamsulosin 2020-0 Yes Take by Uni vers 0.4 mg 24 6-22 mouth ity of hr capsule 21:48: daily. [place] [address] Medical Branch zolpidem 10 2020-0 Yes 10mg Take 10 mg [facility] mg tablet 6-22 by mouth ity of 21:48: at bedtime [place] [address] as needed Medical for Branch Insomnia. diazePAM 2020-0 Yes 5mg Take 5 mg Univ ers (VALIUM) 5 6-22 by mouth ity o f mg tablet 21:48: at [place] [address] bedtime. Medical Branch hydralAZINE 2020-0 Yes 50mg Take 50 mg [facility] 50 mg 6-22 by mouth ity of tablet 21:48: every 8 [place] [address] (eight) Medical hours. Branch vitamin b 2020-0 Yes 1{tbl} Take 1 Univ ers complex-vit 6-22 tablet by ity of villatoro 21:48: mouth [place] c-folic 54 daily. Medical acid Branch (FAUZIA-CONOR) 0.8 mg tablet tamsulosin 2020-0 Yes Take by Uni vers 0.4 mg 24 6-22 mouth ity of hr capsule 21:48: daily. [place] [address] Medical Branch zolpidem 10 2020-0 Yes 10mg Take 10 mg [facility] mg tablet 6-22 by mouth ity of 21:48: at bedtime [place] [address] as needed Medical for Branch Insomnia. diazePAM 2020-0 Yes 5mg Take 5 mg Univ ers (VALIUM) 5 6-22 by mouth ity o f mg tablet 21:48: at [place] [address] bedtime. Medical Branch hydralAZINE 2020-0 Yes 50mg Take 50 mg [facility] 50 mg 6-22 by mouth ity of tablet 21:48: every 8 [place] [address] (eight) Medical hours. Branch vitamin b 2020-0 Yes 1{tbl} Take 1 Univ ers complex-vit 6-22 tablet by ity of villatoro 21:48: mouth [place] c-folic 54 daily. Medical acid Branch (FAUZIA-CONOR) 0.8 mg tablet tamsulosin 2020-0 Yes Take by Uni vers 0.4 mg 24 6-22 mouth ity of hr capsule 21:48: daily. [place] [address] Medical Branch zolpidem 10 2020-0 Yes 10mg Take 10 mg [facility] mg tablet 6-22 by mouth ity of 21:48: at bedtime [place] [address] as needed Medical for Branch Insomnia. diazePAM 2020-0 Yes 5mg Take 5 mg Univ ers (VALIUM) 5 6-22 by mouth ity o f mg tablet 21:48: at [place] [address] bedtime. Medical Branch hydralAZINE 2020-0 Yes 50mg Take 50 mg [facility] 50 mg 6-22 by mouth ity of tablet 21:48: every 8 [place] [address] (eight) Medical hours. Branch vitamin b 2020-0 Yes 1{tbl} Take 1 Univ ers complex-vit 6-22 tablet by ity of villatoro 21:48: mouth [place] c-folic 54 daily. Medical acid Branch (FAUZIA-CONOR) 0.8 mg tablet tamsulosin 2020-0 Yes Take by Uni vers 0.4 mg 24 6-22 mouth ity of hr capsule 21:48: daily. [place] [address] Medical Branch zolpidem 10 2020-0 Yes 10mg Take 10 mg [facility] mg tablet 6-22 by mouth ity of 21:48: at bedtime [place] [address] as needed Medical for Branch Insomnia. diazePAM 2020-0 Yes 5mg Take 5 mg Univ ers (VALIUM) 5 6-22 by mouth ity o f mg tablet 21:48: at [place] [address] bedtime. Medical Branch hydralAZINE 2020-0 Yes 50mg Take 50 mg [facility] 50 mg 6-22 by mouth ity of tablet 21:48: every 8 [place] [address] (eight) Medical hours. Branch vitamin b 2020-0 Yes 1{tbl} Take 1 Univ ers complex-vit 6-22 tablet by ity of villatoro 21:48: mouth [place] c-folic 54 daily. Medical acid Branch (FAUZIA-CONOR) 0.8 mg tablet tamsulosin 2020-0 Yes Take by Uni vers 0.4 mg 24 6-22 mouth ity of hr capsule 21:48: daily. [place] [address] Medical Branch zolpidem 10 2020-0 Yes 10mg Take 10 mg [facility] mg tablet 6-22 by mouth ity of 21:48: at bedtime [place] [address] as needed Medical for Branch Insomnia. diazePAM 2020-0 Yes 5mg Take 5 mg Univ ers (VALIUM) 5 6-22 by mouth ity o f mg tablet 21:48: at [place] [address] bedtime. Medical Branch hydralAZINE 2020-0 Yes 50mg Take 50 mg [facility] 50 mg 6-22 by mouth ity of tablet 21:48: every 8 [place] [address] (eight) Medical hours. Branch vitamin b 2020-0 Yes 1{tbl} Take 1 Univ ers complex-vit 6-22 tablet by ity of villatoro 21:48: mouth [place] c-folic 54 daily. Medical acid Branch (FAUZIA-CONOR) 0.8 mg tablet tamsulosin 2020-0 Yes Take by Uni vers 0.4 mg 24 6-22 mouth ity of hr capsule 21:48: daily. [place] [address] Medical Branch zolpidem 10 2020-0 Yes 10mg Take 10 mg [facility] mg tablet 6-22 by mouth ity of 21:48: at bedtime [place] [address] as needed Medical for Branch Insomnia. diazePAM 2020-0 Yes 5mg Take 5 mg Univ ers (VALIUM) 5 6-22 by mouth ity o f mg tablet 21:48: at [place] [address] bedtime. Medical Branch hydralAZINE 2020-0 Yes 50mg Take 50 mg [facility] 50 mg 6-22 by mouth ity of tablet 21:48: every 8 [place] [address] (eight) Medical hours. Branch vitamin b 2020-0 Yes 1{tbl} Take 1 Univ ers complex-vit 6-22 tablet by ity of villatoro 21:48: mouth [place] c-folic 54 daily. Medical acid Branch (FAUZIA-CONOR) 0.8 mg tablet tamsulosin 2020-0 Yes Take by Uni vers 0.4 mg 24 6-22 mouth ity of hr capsule 21:48: daily. [place] [address] Medical Branch zolpidem 10 2020-0 Yes 10mg Take 10 mg [facility] mg tablet 6-22 by mouth ity of 21:48: at bedtime [place] [address] as needed Medical for Branch Insomnia. diazePAM 2020-0 Yes 5mg Take 5 mg Univ ers (VALIUM) 5 6-22 by mouth ity o f mg tablet 21:48: at [place] [address] bedtime. Medical Branch hydralAZINE 2020-0 Yes 50mg Take 50 mg [facility] 50 mg 6-22 by mouth ity of tablet 21:48: every 8 [place] [address] (eight) Medical hours. Branch vitamin b 2020-0 Yes 1{tbl} Take 1 Univ ers complex-vit 6-22 tablet by ity of villatoro 21:48: mouth [place] c-folic 54 daily. Medical acid Branch (FAUZIA-CONOR) 0.8 mg tablet tamsulosin 2020-0 Yes Take by Uni vers 0.4 mg 24 6-22 mouth ity of hr capsule 21:48: daily. [place] [address] Medical Branch zolpidem 10 2020-0 Yes 10mg Take 10 mg [facility] mg tablet 6-22 by mouth ity of 21:48: at bedtime [place] [address] as needed Medical for Branch Insomnia. diazePAM 2020-0 Yes 5mg Take 5 mg Univ ers (VALIUM) 5 6-22 by mouth ity o f mg tablet 21:48: at [place] [address] bedtime. Medical Branch hydralAZINE 2020-0 Yes 50mg Take 50 mg [facility] 50 mg 6-22 by mouth ity of tablet 21:48: every 8 [place] [address] (eight) Medical hours. Branch vitamin b 2020-0 Yes 1{tbl} Take 1 Univ ers complex-vit 6-22 tablet by ity of villatoro 21:48: mouth [place] c-folic 54 daily. Medical acid Branch (FAUZIA-CONOR) 0.8 mg tablet tamsulosin 2020-0 Yes Take by Uni vers 0.4 mg 24 6-22 mouth ity of hr capsule 21:48: daily. [place] [address] Medical Branch zolpidem 10 2020-0 Yes 10mg Take 10 mg [facility] mg tablet 6-22 by mouth ity of 21:48: at bedtime [place] [address] as needed Medical for Branch Insomnia. diazePAM 2020-0 Yes 5mg Take 5 mg Univ ers (VALIUM) 5 6-22 by mouth ity o f mg tablet 21:48: at [place] [address] bedtime. Medical Branch hydralAZINE 2020-0 Yes 50mg Take 50 mg [facility] 50 mg 6-22 by mouth ity of tablet 21:48: every 8 [place] [address] (eight) Medical hours. Branch amlodipine 2020-0 2020- [...] mouth ity of tablet 17:24: every 8 [place] [address] (eight) Medical hours. Branch vitamin b 2020-0 Yes 1{tbl} Take 1 Univ ers complex-vit 6-22 tablet by ity of villatoro 17:24: mouth [place] c-folic 37 daily. Medical acid Branch (FAUZIA-CNOOR) 0.8 mg tablet tamsulosin 2020-0 Yes Take by Uni vers 0.4 mg 24 6-22 mouth ity of hr capsule 17:24: daily. [place] [address] Medical Branch zolpidem 10 2019-0 Yes 10mg Take 10 mg [facility] mg tablet 6-22 by mouth ity of 17:24: at bedtime [place] [address] as needed Medical for Branch Insomnia. diazePAM 2020-0 Yes 5mg Take 5 mg Univ ers (VALIUM) 5 6-22 by mouth ity o f mg tablet 17:24: at [place] [address] bedtime. Medical Branch hydralAZINE 2020-0 Yes 50mg Take 50 mg [facility] 50 mg 6-22 by mouth ity of tablet 17:24: every 8 [place] [address] (eight) Medical hours. Branch vitamin b 2020-0 Yes 1{tbl} Take 1 Univ ers complex-vit 6-22 tablet by ity of villatoro 17:24: mouth [place] c-folic 37 daily. Medical acid Branch (FAUZIA-CONOR) 0.8 mg tablet tamsulosin 2020-0 Yes Take by Uni vers 0.4 mg 24 6-22 mouth ity of hr capsule 17:24: daily. [place] [address] Medical Branch zolpidem 10 2020-0 Yes 10mg Take 10 mg [facility] mg tablet -22 by mouth ity of 17:24: at bedtime [place] 37 as needed Medical for Branch Insomnia. diazePAM 2020-0 Yes 5mg Take 5 mg Univ ers (VALIUM) 5 -22 by mouth ity o f mg tablet 17:24: at [place] [address] bedtime. Medical Branch D5W 0.45% 2020-0 2020- No IV Univers NaCl + KCL 03-30 Infusion, ity of 20 mEq RTU 05:00: 17:19 CONTINUOUS [place] 20 mEq/L IV 00 :54 , Starting Me dical Solution Mon Branch 03/30/20 at 0000, Until 03/30/20 at 1219, at 75 mL/hr HYDROcodone 2020-0 Yes [id number] 1{tbl} Take 1 Univers -acetaminop 6-22 tablet by ity of hen 5-325 00:00: mouth [place] mg tablet 00 every 6 Medical (six) Branch hours as needed for Pain (scale 7-10). carvediloL 2020-0 Yes [id number] 12.5mg Take 1 [facility] 12.5 mg 6-22 tablet by ity of tablet 00:00: mouth 2 [place] 00 (two) Medical times Branch daily with meals. calcium 2020-0 Yes [id number] 1334mg Take 2 Un seun acetate 667 6-22 capsules ity of mg capsule 00:00: by mouth 3 [place] 00 (three) Medical times Branch daily with meals. HYDROcodone 2020-0 Yes [id number] 1{tbl} Take 1 [facility] -acetaminop 6-22 tablet by ity of hen 5-325 00:00: mouth [place] mg tablet 00 every 6 Medical (six) Branch hours as needed for Pain (scale 7-10). carvediloL 2020-0 Yes [id number] 12.5mg Take 1 [facility] 12.5 mg 6-22 tablet by ity of tablet 00:00: mouth 2 [place] 00 (two) Medical times Branch daily with meals. calcium 2020-0 Yes [id number] 1334mg Take 2 Un seun acetate 667 6-22 capsules ity of mg capsule 00:00: by mouth 3 [place] 00 (three) Medical times Branch daily with meals. HYDROcodone 2020-0 Yes [id number] 1{tbl} Take 1 [facility] -acetaminop 6-22 tablet by ity of hen 5-325 00:00: mouth [place] mg tablet 00 every 6 Medical (six) Branch hours as needed for Pain (scale 7-10). carvediloL 2020-0 Yes [id number] 12.5mg Take 1 [facility] 12.5 mg 6-22 tablet by ity of tablet 00:00: mouth 2 [place] (two) Medical times Branch daily with meals. calcium 2020-0 Yes [id number] 1334mg Take 2 Un seun acetate 667 6-22 capsules ity of mg capsule 00:00: by mouth 3 [place] (three) Medical times Branch daily with meals. HYDROcodone 2020-0 Yes [id number] 1{tbl} Take 1 [facility] -acetaminop 6-22 tablet by ity of hen 5-325 00:00: mouth [place] mg tablet 00 every 6 Medical (six) Branch hours as needed for Pain (scale 7-10). carvediloL 2020-0 Yes [id number] 12.5mg Take 1 [facility] 12.5 mg 6-22 tablet by ity of tablet 00:00: mouth 2 (two) Medical times Branch daily with meals. calcium 2020-0 Yes [id number] 1334mg Take 2 Un seun acetate 667 6-22 capsules ity of mg capsule 00:00: by mouth 3 [place] (three) Medical times Branch daily with meals. HYDROcodone 2020-0 Yes [id number] 1{tbl} Take 1 [facility] -acetaminop 6-22 tablet by ity of hen 5-325 00:00: mouth [place] mg tablet 00 every 6 Medical (six) Branch hours as needed for Pain (scale 7-10). carvediloL 2020-0 Yes [id number] 12.5mg Take 1 [facility] 12.5 mg 6-22 tablet by ity of tablet 00:00: mouth 2 [place] (two) Medical times Branch daily with meals. calcium 2020-0 Yes [id number] 1334mg Take 2 Un seun acetate 667 6-22 capsules ity of mg capsule 00:00: by mouth 3 [place] 00 (three) Medical times Branch daily with meals. HYDROcodone 2020-0 Yes [id number] 1{tbl} Take 1 [facility] -acetaminop 6-22 tablet by ity of hen 5-325 00:00: mouth [place] mg tablet 00 every 6 Medical (six) Branch hours as needed for Pain (scale 7-10). carvediloL 2020-0 Yes [id number] 12.5mg Take 1 [facility] 12.5 mg 6-22 tablet by ity of tablet 00:00: mouth 2 (two) Medical times Branch daily with meals. calcium 2020-0 Yes [id number] 1334mg Take 2 Un seun acetate 667 6-22 capsules ity of mg capsule 00:00: by mouth 3 [place] 00 (three) Medical times Branch daily with meals. HYDROcodone 2020-0 Yes [id number] 1{tbl} Take 1 [facility] -acetaminop 6-22 tablet by ity of hen 5-325 00:00: mouth [place] mg tablet 00 every 6 Medical (six) Branch hours as needed for Pain (scale 7-10). carvediloL 2020-0 Yes [id number] 12.5mg Take 1 [facility] 12.5 mg 6-22 tablet by ity of tablet 00:00: mouth (two) Medical times Branch daily with meals. calcium 2020-0 Yes [id number] 1334mg Take 2 Un seun acetate 667 6-22 capsules ity of mg capsule 00:00: by mouth 3 [place] (three) Medical times Branch daily with meals. HYDROcodone 2020-0 Yes [id number] 1{tbl} Take 1 [facility] -acetaminop 6-22 tablet by ity of hen 5-325 00:00: mouth [place] mg tablet 00 every 6 Medical (six) Branch hours as needed for Pain (scale 7-10). carvediloL 2020-0 Yes [id number] 12.5mg Take 1 [facility] 12.5 mg 6-22 tablet by ity of tablet 00:00: mouth 2 [place] (two) Medical times Branch daily with meals. calcium 2020-0 Yes [id number] 1334mg Take 2 Un seun acetate 667 6-22 capsules ity of mg capsule 00:00: by mouth 3 [place] 00 (three) Medical times Branch daily with meals. HYDROcodone 2020-0 Yes [id number] 1{tbl} Take 1 [facility] -acetaminop 6-22 tablet by ity of hen 5-325 00:00: mouth [place] mg tablet 00 every 6 Medical (six) Branch hours as needed for Pain (scale 7-10). carvediloL 2020-0 Yes [id number] 12.5mg Take 1 [facility] 12.5 mg 6-22 tablet by ity of tablet 00:00: mouth (two) Medical times Branch daily with meals. calcium 2020-0 Yes [id number] 1334mg Take 2 Un seun acetate 667 6-22 capsules ity of mg capsule 00:00: by mouth 3 [place] (three) Medical times Branch daily with meals. HYDROcodone 2020-0 Yes [id number] 1{tbl} Take 1 [facility] -acetaminop 6-22 tablet by ity of hen 5-325 00:00: mouth [place] mg tablet 00 every 6 Medical (six) Branch hours as needed for Pain (scale 7-10). carvediloL 2020-0 Yes [id number] 12.5mg Take 1 [facility] 12.5 mg 6-22 tablet by ity of tablet 00:00: mouth (two) Medical times Branch daily with meals. calcium 2020-0 Yes [id number] 1334mg Take 2 Un seun acetate 667 6-22 capsules ity of mg capsule 00:00: by mouth 3 [place] (three) Medical times Branch daily with meals. HYDROcodone 2020-0 Yes [id number] 1{tbl} Take 1 [facility] -acetaminop 6-22 tablet by ity of hen 5-325 00:00: mouth [place] mg tablet 00 every 6 Medical (six) Branch hours as needed for Pain (scale 7-10). carvediloL 2020-0 Yes [id number] 12.5mg Take 1 [facility] 12.5 mg 6-22 tablet by ity of tablet 00:00: mouth (two) Medical times Branch daily with meals. calcium 2020-0 Yes [id number] 1334mg Take 2 Un seun acetate 667 6-22 capsules ity of mg capsule 00:00: by mouth 3 [place] (three) Medical times Branch daily with meals. calcium 2020-0 Yes [id number] 1334mg Take 2 Un seun acetate 667 6-22 capsules ity of mg capsule 00:00: by mouth 3 [place] (three) Medical times Branch daily with meals. calcium 2020-0 Yes [id number] 1334mg Take 2 Un seun acetate 667 6-22 capsules ity of mg capsule 00:00: by mouth 3 [place] (three) Medical times Branch daily with meals. calcium 2020-0 Yes [id number] 1334mg Take 2 Un seun acetate 667 6-22 capsules ity of mg capsule 00:00: by mouth 3 [place] 00 (three) Medical times Branch daily with meals. calcium 2020-0 Yes [id number] 1334mg Take 2 Un seun acetate 667 6-22 capsules ity of mg capsule 00:00: by mouth 3 [place] 00 (three) Medical times Branch daily with meals. calcium 2020-0 Yes [id number] 1334mg Take 2 Un seun acetate 667 6-22 capsules ity of mg capsule 00:00: by mouth 3 [place] 00 (three) Medical times Branch daily with meals. calcium 2020-0 Yes [id number] 1334mg Take 2 Un seun acetate 667 6-22 capsules ity of mg capsule 00:00: by mouth 3 [place] 00 (three) Medical times Branch daily with meals. calcium 2020-0 Yes [id number] 1334mg Take 2 Un seun acetate 667 6-22 capsules ity of mg capsule 00:00: by mouth 3 [place] 00 (three) Medical times Branch daily with meals. calcium 2020-0 Yes [id number] 1334mg Take 2 Un seun acetate 667 6-22 capsules ity of mg capsule 00:00: by mouth 3 [place] 00 (three) Medical times Branch daily with meals. calcium 2020-0 Yes [id number] 1334mg Take 2 Un seun acetate 667 6-22 capsules ity of mg capsule 00:00: by mouth 3 [place] 00 (three) Medical times Branch daily with meals. calcium 2020-0 Yes [id number] 1334mg Take 2 Un seun acetate 667 6-22 capsules ity of mg capsule 00:00: by mouth 3 [place] 00 (three) Medical times Branch daily with meals. calcium 2020-0 Yes [id number] 1334mg Take 2 Un seun acetate 667 6-22 capsules ity of mg capsule 00:00: by mouth 3 [place] 00 (three) Medical times Branch daily with meals. calcium 2020-0 Yes [id number] 1334mg Take 2 Un seun acetate 667 6-22 capsules ity of mg capsule 00:00: by mouth 3 [place] 00 (three) Medical times Branch daily with meals. calcium 2020-0 Yes [id number] 1334mg Take 2 Un seun acetate 667 6-22 capsules ity of mg capsule 00:00: by mouth 3 [place] 00 (three) Medical times Branch daily with meals. calcium 2020-0 Yes [id number] 1334mg Take 2 Un seun acetate 667 6-22 capsules ity of mg capsule 00:00: by mouth 3 [place] 00 (three) Medical times Branch daily with meals. calcium 2020-0 Yes [id number] 1334mg Take 2 Un seun acetate 667 6-22 capsules ity of mg capsule 00:00: by mouth 3 [place] 00 (three) Medical times Branch daily with meals. calcium 2020-0 Yes [id number] 1334mg Take 2 Un seun acetate 667 6-22 capsules ity of mg capsule 00:00: by mouth 3 [place] 00 (three) Medical times Branch daily with meals. calcium 2020-0 Yes [id number] 1334mg Take 2 Un seun acetate 667 6-22 capsules ity of mg capsule 00:00: by mouth 3 [place] 00 (three) Medical times Branch daily with meals. calcium 2020-0 Yes [id number] 1334mg Take 2 Un seun acetate 667 6-22 capsules ity of mg capsule 00:00: by mouth 3 [place] 00 (three) Medical times Branch daily with meals. calcium 2020-0 Yes [id number] 1334mg Take 2 Un seun acetate 667 6-22 capsules ity of mg capsule 00:00: by mouth 3 [place] 00 (three) Medical times Branch daily with meals. calcium 2020-0 Yes [id number] 1334mg Take 2 Un seun acetate 667 6-22 capsules ity of mg capsule 00:00: by mouth 3 [place] 00 (three) Medical times Branch daily with meals. calcium 2020-0 Yes [id number] 1334mg Take 2 Un seun acetate 667 6-22 capsules ity of mg capsule 00:00: by mouth 3 [place] 00 (three) Medical times Branch daily with meals. calcium 2020-0 Yes [id number] 1334mg Take 2 Un seun acetate 667 6-22 capsules ity of mg capsule 00:00: by mouth 3 [place] 00 (three) Medical times Branch daily with meals. calcium 2020-0 Yes [id number] 1334mg Take 2 Un seun acetate 667 6-22 capsules ity of mg capsule 00:00: by mouth 3 [place] 00 (three) Medical times Branch daily with meals. calcium 2020-0 Yes [id number] 1334mg Take 2 Un seun acetate 667 6-22 capsules ity of mg capsule 00:00: by mouth 3 [place] 00 (three) Medical times Branch daily with meals. calcium 2020-0 Yes [id number] 1334mg Take 2 Un seun acetate 667 6-22 capsules ity of mg capsule 00:00: by mouth 3 [place] 00 (three) Medical times Branch daily with meals. calcium 2020-0 Yes [id number] 1334mg Take 2 Un seun acetate 667 6-22 capsules ity of mg capsule 00:00: by mouth 3 [place] 00 (three) Medical times Branch daily with meals. calcium 2020-0 Yes [id number] 1334mg Take 2 Un seun acetate 667 6-22 capsules ity of mg capsule 00:00: by mouth 3 [place] 00 (three) Medical times Branch daily with meals. calcium 2020-0 Yes [id number] 1334mg Take 2 Un seun acetate 667 6-22 capsules ity of mg capsule 00:00: by mouth 3 [place] 00 (three) Medical times Branch daily with meals. calcium 2020-0 Yes [id number] 1334mg Take 2 Un seun acetate 667 6-22 capsules ity of mg capsule 00:00: by mouth 3 [place] 00 (three) Medical times Branch daily with meals. calcium 2020-0 Yes [id number] 1334mg Take 2 Un seun acetate 667 6-22 capsules ity of mg capsule 00:00: by mouth 3 [place] 00 (three) Medical times Branch daily with meals. calcium 2020-0 Yes [id number] 1334mg Take 2 Un seun acetate 667 6-22 capsules ity of mg capsule 00:00: by mouth 3 [place] 00 (three) Medical times Branch daily with meals. calcium 2020-0 Yes [id number] 1334mg Take 2 Un seun acetate 667 6-22 capsules ity of mg capsule 00:00: by mouth 3 [place] 00 (three) Medical times Branch daily with meals. HYDROcodone 2020-0 Yes [id number] 1{tbl} Take 1 [facility] -acetaminop 6-22 tablet by ity of hen 5-325 00:00: mouth [place] mg tablet 00 every 6 Medical (six) Branch hours as needed for Pain (scale 7-10). carvediloL 2020-0 Yes [id number] 12.5mg Take 1 [facility] 12.5 mg 6-22 tablet by ity of tablet 00:00: mouth 2 00 (two) Medical times Branch daily with meals. calcium 2020-0 Yes [id number] 1334mg Take 2 Un seun acetate 667 6-22 capsules ity of mg capsule 00:00: by mouth 3 [place] 00 (three) Medical times Branch daily with meals. HYDROcodone 2020-0 Yes [id number] 1{tbl} Take 1 [facility] -acetaminop 6-22 tablet by ity of hen 5-325 00:00: mouth [place] mg tablet 00 every 6 Medical (six) Branch hours as needed for Pain (scale 7-10). carvediloL 2020-0 Yes [id number] 12.5mg Take 1 [facility] 12.5 mg 6-22 tablet by ity of tablet 00:00: mouth 2 (two) Medical times Branch daily with meals. calcium 2020-0 Yes [id number] 1334mg Take 2 Un seun acetate 667 6-22 capsules ity of mg capsule 00:00: by mouth 3 [place] (three) Medical times Branch daily with meals. HYDROcodone 2020-0 2020- No [id number] 1{tbl} Take 1 Univers -acetaminop 6-22 09-13 tablet by it y of hen 5-325 00:00: 00:00 mouth [place] mg tablet 00 :00 every 6 Medical (six) Branch hours as needed for Pain (scale 7-10). carvediloL 2020-0 2020- No [id number] 12.5mg Take 1 Univers 12.5 mg 6-22 [...] s mg 00 First dose Medical on [facility] 03/29/20 at 0900, Until Discontinu ed, Routine carvediloL 2020-0 Yes 12.5mg 12.5 mg, U nivers (COREG) 03-29 Oral, BID ity of tablet 12.5 13:00: MEALS, [place] mg 00 First dose Medical on [facility] 03/29/20 at 0800, Until Discontinu ed, Routine zolpidem 2019- 2020- No 10mg 10 mg, Univer s (AMBIEN) 03-29 Oral, ity of tablet 10 05:15: 04:58 ONCE, 1 [place] mg 00 :00 dose, [facility] 03/29/20 at Branch 0015, Routine melatonin 2019- 2020- No 3mg 3 mg, Univer s (MELATIN) 03-29 Oral, ity of tablet 3 mg 04:15: 03:14 ONCE, 1 [place] 00 :[place] dose, [facility] 03/28/20 at Branch 2315, Routine HYDROcodone 2020-0 Yes 1{tbl} 1 tablet, Univers -acetaminop 03-28 Oral, ity of hen (NORCO 21:00: Q4HPRN, [place] 5) 5-325 mg 00 Starting Medi sony tablet 1 [facility] tablet 03/28/20 at 1600, Until [...] 19:25 ONCE, 1 [place] 00 :00 dose, [facility] 03/27/20 at Branch 1430, Routine iohexol [...] Fri Med ical tablet 1 03/27/20 at [facility] [place] h tablet 0145, Routine peg-electro 2019- No [...] Pain (scale 7-10) epoetin 2019-0 2020- No [id number] 10,000 Unive rs franca-epbx 03-26 Units, ity of (RETACRIT) 01:00: 03:06 Subcutaneo [place] injection 00 :00 us, ONCE Medica l 10,000 AT 2000, 1 Branch Units dose, 03/25/20 at 2000, Routine
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 03/25/20 at Branch 1600, Routine calcium [...] mg 00 :00 ONCE, 1 Medical dose, [place] 03/24/20 at 1245, Routine heparin 2020-0 Yes 1000U PERITONEAL Uni vers (1,000 03-24 DIALYSIS ity of unit/mL, 10 15:41: PRN- PT [place] mL vial) 20 ROOM, Medical (Peritoneal Starting Bran ch Dialysis) [facility] 03/24/20 at 1041, Until Discontinu ed, [...] 1,000 mL 00 :42 IV Medical Infusion, [place] CONTINUOUS , Starting Mon03/24/20 at 0845, Until [...] Tue Medica l NaCl 0.9% 03/24/20 at [facility] ch (NS) 100 mL 0745, 100 MINI-BAG mL iohexol 2019- No 150mL 150 mL, Unive rs (OMNIPAQUE 03-24 Intravenou it y of 350 11:00: 10:47 s, ONCE, 1 [place] BULK-150 00 :00 dose, Tue Medica l mL) 03/24/20 at [place] injection 0600, 150 mL Routine hydrOXYzine 2019- No 30mg 30 mg, Uni vers (ATARAX) 03-24 Oral, ity of tablet 30 03:30: 07:22 ONCE, 1 [place] mg 00 :00 dose, Mon Medical 03/23/20 at [place] 2230, Routine FENTanyl PF 2019- No 25ug 25 mcg, Un seun (SUBLIMAZE 03-24 Slow IV ity o f (PF)) 02:27: 12:25 Push, [place] injection 32 :01 Q15MIN Medical 25 mcg PRN, [place] Starting 03/23/20 at 2127, Until Mon03/25/20 at [...] ONCE, 1 [place] 00 :[place] dose, [facility] Medical 03/23/20 at Branch 1815, Routine gabapentin 2019- 2020- No 300mg 300 mg, Un seun (NEURONTIN) 03-23 Oral, ity of capsule 300 22:15: 22:55 ONCE, 1 [place] mg 00 :00 dose, [facility] Medical 03/23/20 at Branch 1715, Routine NaCl 0.9% 2020- No 1000mL at 10 [facility] ers (NS) IV 03-23 mL/hr, IV ity of infusion 19:30: 12:44 Infusion, [place] as 1,000 mL 00 :19 CONTINUOUS Medic al , Starting Branch [facility] 03/23/20 at 1430, Until 03/24/20 at 0744, Routine NaCl 0.9% 2020-0 2020- No 1000mL at 125 Uni vers (NS) IV 03-23 06-15 mL/hr, IV ity of infusion 19:15: 19:26 Infusion, [place] as 1,000 mL 00 :05 CONTINUOUS Medic al , Starting Branch [facility] 03/23/20 at 1415, Until [facility] 03/23/20 at 1426, Routine [...] 04 :47 Starting Medi sony tablet 1 [facility] tablet 03/23/20 at 1355, Until Mon03/23/20 at [...] Memoria 6-15 Route: l 13:48: IVP, ONCE, [place] Dosing Weight 104, kg, Priority: STAT, Start [...] TAB, 5 MG Oral Dosing Tablet Weight [Hannah 104, kg, 5/325] ONCE, STAT, Start date: 03/23/20 5:53:00 CDT, Stop date: 03/23/20 5:53:00 CDT Acetaminoph 2020-0 No 1 tab, Kojo lynn en 325 MG / 6-15 Route: PO, l Hydrocodone 10:53: Drug Form: [place] Bitartrate 00 TAB, 5 MG Oral Dosing Tablet Weight [Hannah 104, kg, 5/325] ONCE, STAT, Start date: 03/23/20 5:53:00 CDT, Stop date: 03/23/20 5:53:00 CDT Acetaminoph 2020-0 No 1 tab, [place] en 325 MG / 6-15 Route: PO, l Hydrocodone 10:53: Drug Form: [place] Bitartrate 00 TAB, 5 MG Oral Dosing Tablet Weight [Hannah 104, kg, 5/325] ONCE, STAT, Start date: 03/23/20 5:53:00 CDT, Stop date: 03/23/20 5:53:00 CDT Acetaminoph 2020-0 No Notes: Do M emoria en 325 MG / 6-15 not exceed l Hydrocodone 09:02: 4gm/day of [place] Bitartrate 00 acetaminop 10 MG Oral hen. Tablet (Same as: [Hannah Hannah 10/325] 325/10) Acetaminoph 2020-0 No Notes: Do M [place] en 325 MG / 6-15 not exceed l Hydrocodone 09:02: 4gm/day of [place] Bitartrate 00 acetaminop 10 MG Oral hen. Tablet (Same as: [Hannah Hannah 10/325] 325/10) Acetaminoph 2020-0 No Notes: Do M [place] en 325 MG / 6-15 not exceed l Hydrocodone 09:02: 4gm/day of [place] Bitartrate 00 acetaminop 10 MG Oral hen. Tablet (Same as: [Hannah Hannah 10/325] 325/10) Sodium 2020-0 No 250 mL, Memoria Chloride 6-15 Rate: To l 0.9% 06:23: prime line [place] (titrate) 00 and flush 250 mL remaining blood products., Dosing Weight 104, kg, Route: IV, Total Volume: 250, Priority: Routine, Start Date: 03/23/20 1:23:00 CDT, Duration: 1 day, Stop date: 03/24/20 1:22:00 CDT, Replace Every: 24 hr, 0 Sodium 2020-0 No 250 mL, [place] Chloride 6-15 Rate: To l 0.9% 06:23: prime line [place] (titrate) 00 and flush 250 mL remaining [...] 6- 06-06 ity of (TYLENOL 23:45: 11:44 [place] #3) 300-30 00 :00 Medical mg tablet 1 Branch tablet acetaminoph 2020-0 2020- No 1{tbl} Uni vers en-codeine 03-13- ity of (TYLENOL 23:45: 11:44 [place] #3) 300-30 00 :00 Medical mg tablet [...] mouth ity of hr capsule 22:33: daily. [place] 10 Medical Branch zolpidem 10 2020-0 Yes [...] mouth ity of hr capsule 22:33: daily. [place] [address] Medical Branch zolpidem 10 2020-0 Yes 10mg Take 10 mg Univers mg tablet 5-28 by mouth ity of 22:33: at bedtime [place] as needed Medical for Branch Insomnia. diazePAM 2020-0 Yes 5mg Take 5 mg Univ ers (VALIUM) 5 5-28 by mouth ity o f mg tablet 22:33: at [place] [address] bedtime. Medical Branch amlodipine 2020-0 Yes 1{tbl} Take 1 Uni vers besylate/be 5-28 tablet by ity of nazepril 22:33: mouth 3 [place] (AMLODIPINE 10 (three) Medic al -BENAZEPRIL times [...] mouth ity of hr capsule 22:33: daily. [place] 10 Medical Branch zolpidem 10 2020-0 Yes 10mg Take 10 mg Univers mg tablet -28 by mouth ity of 22:33: at bedtime [place] [address] as needed Medical for Branch Insomnia. diazePAM 2020-0 Yes 5mg Take 5 mg Univ ers (VALIUM) 5 - by mouth ity o f mg tablet 22:33: at [place] [address] bedtime. Medical Branch oxyCODONE-a 2019-0 2020- No 1{tbl} 1 tablet, [facility] cetaminophe 03-05- Oral, ity of n 22:00: 21:09 ONCE, 1 [place] (PERCOCET) 00 :00 dose, Leyla Medi sony [...] IV ity of (DILAUDID) 20:03: 21:02 Push, [place] injection 31 :00 Q5MIN PRN, Medi sony [...] 19:16: Leyla [place] (SENSORCAIN 00 03/05/20 at [facility]) 0.25 1416, Branch % (2.5 Until mg/mL) Discontinu injection ed, Routine, Intra-op oxyCODONE-a 2020-0 Yes [id number] 1{tbl} Take 1 [facility] cetaminophe 5-28 tablet by ity of n 00:00: mouth [place] (PERCOCET) 00 every 6 Medica l 5-325 mg (six) Branch per tablet hours as needed for Pain (scale 4-6) or Pain (scale 7-10). oxyCODONE-a 2020-0 Yes [id number] 1{tbl} Take 1 [facility] cetaminophe 5-28 tablet by ity of n 00:00: mouth [place] (PERCOCET) 00 every 6 Medica l 5-325 mg (six) Branch per tablet hours as needed for Pain (scale 4-6) or Pain (scale 7-10). oxyCODONE-a 2019-0 Yes [id number] 1{tbl} Take 1 [facility] cetaminophe 5-28 tablet by ity of n 00:00: mouth [place] (PERCOCET) 00 every 6 Medica l 5-325 mg (six) Branch per tablet hours as needed for Pain (scale 4-6) or Pain (scale 7-10). oxyCODONE-a 2019-0 Yes [id number] 1{tbl} Take 1 [facility] cetaminophe 5-28 tablet by ity of n 00:00: mouth [place] (PERCOCET) 00 every 6 Medica l 5-325 mg (six) Branch per tablet hours as needed for Pain (scale 4-6) or Pain (scale 7-10). oxyCODONE-a 2019-0 Yes [id number] 1{tbl} Take 1 [facility] cetaminophe 5-28 tablet by ity of n 00:00: mouth [place] (PERCOCET) 00 every 6 Medica l 5-325 mg (six) Branch per tablet hours as needed for Pain (scale 4-6) or Pain (scale 7-10). oxyCODONE-a 2019-0 Yes [id number] 1{tbl} Take 1 [facility] cetaminophe 5-28 tablet by ity of n 00:00: mouth [place] (PERCOCET) 00 every 6 Medica l 5-325 mg (six) Branch per tablet hours as needed for Pain (scale 4-6) or Pain (scale 7-10). oxyCODONE-a 2019-0 Yes [id number] 1{tbl} Take 1 [facility] cetaminophe 5-28 tablet by ity of n 00:00: mouth [place] (PERCOCET) 00 every 6 Medica l 5-325 mg (six) Branch per tablet hours as needed for Pain (scale 4-6) or Pain (scale 7-10). oxyCODONE-a 2019-0 Yes [id number] 1{tbl} Take 1 [facility] cetaminophe 5-28 tablet by ity of n 00:00: mouth [place] (PERCOCET) 00 every 6 Medica l 5-325 mg (six) Branch per tablet hours as needed for Pain (scale 4-6) or Pain (scale 7-10). oxyCODONE-a 2019-0 Yes [id number] 1{tbl} Take 1 [facility] cetaminophe 5-28 tablet by ity of n 00:00: mouth [place] (PERCOCET) 00 every 6 Medica l 5-325 mg (six) Branch per tablet hours as needed for Pain (scale 4-6) or Pain (scale 7-10). oxyCODONE-a 2019-0 Yes [id number] 1{tbl} Take 1 [facility] cetaminophe 5-28 tablet by ity of n 00:00: mouth [place] (PERCOCET) 00 every 6 Medica l 5-325 mg (six) Branch per tablet hours as needed for Pain (scale 4-6) or Pain (scale 7-10). oxyCODONE-a 2019-0 Yes [id number] 1{tbl} Take 1 [facility] cetaminophe 5-28 tablet by ity of n 00:00: mouth [place] (PERCOCET) 00 every 6 Medica l 5-325 mg (six) Branch per tablet hours as needed for Pain (scale 4-6) or Pain (scale 7-10). oxyCODONE-a 2019-0 Yes [id number] 1{tbl} Take 1 [facility] cetaminophe 5-28 tablet by ity of n 00:00: mouth [place] (PERCOCET) 00 every 6 Medica l 5-325 mg (six) Branch per tablet hours as needed for Pain (scale 4-6) or Pain (scale 7-10). oxyCODONE-a 2019-0 Yes [id number] 1{tbl} Take 1 [facility] cetaminophe 5-28 tablet by ity of n 00:00: mouth [place] (PERCOCET) 00 every 6 Medica l 5-325 mg (six) Branch per tablet hours as needed for Pain (scale 4-6) or Pain (scale 7-10). oxyCODONE-a 2019-0 Yes [id number] 1{tbl} Take 1 [facility] cetaminophe 5-28 tablet by ity of n 00:00: mouth [place] (PERCOCET) 00 every 6 Medica l 5-325 mg (six) Branch per tablet hours as needed for Pain (scale 4-6) or Pain (scale 7-10). oxyCODONE-a Yes [id number] 1{tbl} Take 1 [facility] cetaminophe 5-28 tablet by ity of n 00:00: mouth [place] (PERCOCET) 00 every 6 Medica l 5-325 mg (six) Branch per tablet hours as needed for Pain (scale 4-6) or Pain (scale 7-10). oxyCODONE-a 2019- Yes [id number] 1{tbl} Take 1 [facility] cetaminophe 5-28 tablet by ity of n 00:00: mouth [place] (PERCOCET) 00 every 6 Medica l 5-325 mg (six) Branch per tablet hours as needed for Pain (scale 4-6) or Pain (scale 7-10). oxyCODONE-a Yes [id number] 1{tbl} Take 1 [facility] cetaminophe 5-28 tablet by ity of n 00:00: mouth [place] (PERCOCET) 00 every 6 Medica l 5-325 mg (six) Branch per tablet hours as needed for Pain (scale 4-6) or Pain (scale 7-10). oxyCODONE-a Yes [id number] 1{tbl} Take 1 [facility] cetaminophe 5-28 tablet by ity of n 00:00: mouth [place] (PERCOCET) 00 every 6 Medica l 5-325 mg (six) Branch per tablet hours as needed for Pain (scale 4-6) or Pain (scale 7-10). acetaminoph 2020- No [id number] 650mg Take 2 [facility] en 5-28 05-29 tablets by ity of (TYLENOL) 00:00: 04:59 mouth [place] 325 mg 00 :00 every 6 Medical tablet (six) Branch hours as needed for Pain (scale 1-3). acetaminoph No [id number] 650mg Take 2 [facility] en 5-28 05-29 tablets by ity of (TYLENOL) 00:00: 04:59 mouth [place] 325 mg 00 :00 every 6 Medical tablet (six) Branch hours as needed for Pain (scale 1-3). acetaminoph No [id number] 650mg Take 2 [facility] en 5-28 05-29 tablets by ity of (TYLENOL) 00:00: 04:59 mouth [place] 325 mg 00 :00 every 6 Medical tablet (six) Branch hours as needed for Pain (scale 1-3). acetaminoph No [id number] 650mg Take 2 [facility] en 5-28 05-29 tablets by ity of (TYLENOL) 00:00: 04:59 mouth [place] 325 mg 00 :00 every 6 Medical tablet (six) Branch hours as needed for Pain (scale 1-3). acetaminoph [id number] 650mg Take 2 [facility] en 5-28 05-29 tablets by ity of (TYLENOL) 00:00: 04:59 mouth [place] 325 mg 00 :00 every 6 Medical tablet (six) Branch hours as needed for Pain (scale 1-3). acetaminoph [id number] 650mg Take 2 [facility] en 5-28 05-29 tablets by ity of (TYLENOL) 00:00: 04:59 mouth [place] 325 mg 00 :00 every 6 Medical tablet (six) Branch hours as needed for Pain (scale 1-3). acetaminoph No [id number] 650mg Take 2 [facility] en 5-28 05-29 tablets by ity of (TYLENOL) 00:00: 04:59 mouth [place] 325 mg 00 :00 every 6 Medical tablet (six) Branch hours as needed for Pain (scale 1-3). acetaminoph [id number] 650mg Take 2 [facility] en 5-28 05-29 tablets by ity of (TYLENOL) 00:00: 04:59 mouth [place] 325 mg 00 :00 every 6 Medical tablet (six) Branch hours as needed for Pain (scale 1-3). acetaminoph 2020- No [id number] 650mg Take 2 [facility] en 5-28 05-29 tablets by ity of (TYLENOL) 00:00: 04:59 mouth [place] 325 mg 00 :00 every 6 Medical tablet (six) Branch hours as needed for Pain (scale 1-3). acetaminoph 2020- [id number] 650mg Take 2 [facility] en 5-28 05-29 tablets by ity of (TYLENOL) 00:00: 04:59 mouth [place] 325 mg 00 :00 every 6 Medical tablet (six) Branch hours as needed for Pain (scale 1-3). acetaminoph No [id number] 650mg Take 2 [facility] en 5-28 05-29 tablets by ity of (TYLENOL) 00:00: 04:59 mouth [place] 325 mg 00 :00 every 6 Medical tablet (six) Branch hours as needed for Pain (scale 1-3). acetaminoph No [id number] 650mg Take 2 [facility] en 5-28 05-29 tablets by ity of (TYLENOL) 00:00: 04:59 mouth [place] 325 mg 00 :00 every 6 Medical tablet (six) Branch hours as needed for Pain (scale 1-3). acetaminoph No [id number] 650mg Take 2 [facility] en 5-28 05-29 tablets by ity of (TYLENOL) 00:00: 04:59 mouth [place] 325 mg 00 :00 every 6 Medical tablet (six) Branch hours as needed for Pain (scale 1-3). acetaminoph No [id number] 650mg Take 2 [facility] en 5-28 05-29 tablets by ity of (TYLENOL) 00:00: 04:59 mouth [place] 325 mg 00 :00 every 6 Medical tablet (six) Branch hours as needed for Pain (scale 1-3). acetaminoph No [id number] 650mg Take 2 [facility] en 5-28 05-29 tablets by ity of (TYLENOL) 00:00: 04:59 mouth [place] 325 mg 00 :00 every 6 Medical tablet (six) Branch hours as needed for Pain (scale 1-3). acetaminoph No [id number] 650mg Take 2 [facility] en 5-28 05-29 tablets by ity of (TYLENOL) 00:00: 04:59 mouth [place] 325 mg 00 :00 every 6 Medical tablet (six) Branch hours as needed for Pain (scale 1-3). acetaminoph 2020- No [id number] 650mg Take 2 [facility] en 5-28 05-29 tablets by ity of (TYLENOL) 00:00: 04:59 mouth [place] 325 mg 00 :00 every 6 Medical tablet (six) Branch hours as needed for Pain (scale 1-3). acetaminoph No [id number] 650mg Take 2 [facility] en 5-28 05-29 tablets by ity of (TYLENOL) 00:00: 04:59 mouth [place] 325 mg 00 :00 every 6 Medical tablet (six) Branch hours as needed for Pain (scale 1-3). acetaminoph 2020- No [id number] 650mg Take 2 [facility] en 03-05- tablets by ity of (TYLENOL) 00:00: 00:00 mouth [place] 325 mg 00 :00 every 6 Medical tablet (six) Branch hours as needed for Pain (scale 1-3). oxyCODONE-a 2019- 2020- No [id number] 1{tbl} Take 1 [facility] cetaminophe 03-05 tablet by it y of n 00:00: 00:00 mouth [place] (PERCOCET) 00 :00 every 6 Medica l 5-325 mg (six) Branch per tablet hours as needed for Pain (scale 4-6) or Pain (scale 7-10). traMADol 50 2019-2019- No [id number] 50mg Take 1 [facility] mg tablet 03-05 [...] Memoria 4-27 Same as: l 22:39: Dilaudid [place] 00 Dilaudid 2019-0 No Notes: Memoria 02-02 Same as: l 22:39: Dilaudid [place] 00 Dilaudid 2019-0 No Notes: Memoria 02-02 Same as: l 22:39: Dilaudid [place] 00 Hydralazine 2019-0 No 50 mg, 1 [...] l 20:18: as:MORPhin [place] 00 e Sulfate) Acetaminoph Yes 1-2 tab, Me moria en 325 MG / 1-28 PO, Q4-6H, l Hydrocodone 20:46: PRN Pain, H ermann Bitartrate 00 X 5 day, # 10 MG Oral 20 tab, 0 Tablet Refill(s), [[facility]: ] [facility] [place] Acetaminoph Yes 1-2 tab, Me moria en 325 MG / 1-28 PO, Q4-6H, l Hydrocodone 20:46: PRN Pain, H ermann Bitartrate 00 X 5 day, # 10 MG Oral 20 tab, 0 Tablet Refill(s), [[facility]: ] [facility] [place] Acetaminoph Yes 1-2 tab, Me moria en 325 MG / 1-28 PO, Q4-6H, l Hydrocodone 20:46: PRN Pain, H ermann Bitartrate 00 X 5 day, # 10 MG Oral 20 tab, 0 Tablet Refill(s), [[facility]: ] [facility] vancomycin No 2001 mg: Me moria - infuse l 19:00: over 2.5 [place] 00 hours For adult patients only: Round to nearest 250 mg per Medical Staff approval MEDICATION WASTE Product Size: 1000 mg Product Wasted: ___ mg Amlodipine No 1 cap, Memor ia 10 MG / 11-04 Route: PO, l Benazepril 19:00: Drug Form: H ermann hydrochlori 00 CAP, de 20 MG Dosing Oral Weight Capsule 99.091, kg, TID, Start date: 11/04/19 13:00:00 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, Duration: 30 day, Stop date: 12/04/19 9:00:00 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 amLODIPine No Notes: Memor ia 11-04 (Same as: l 19:00: Norvasc) [place] 00 lisinopril No Notes: Memor ia 11-04 (Same as: l 19:00: Prinivil, [place] 00 Zestril) vancomycin 2020-0 No 2000 mg: Me moria - infuse l 19:00: over 2.5 [place] 00 hours For adult patients only: Round to nearest 250 mg per Medical Staff approval MEDICATION WASTE Product Size: 1000 mg Product Wasted: ___ mg Amlodipine 2020-0 No 1 cap, Memor ia 10 MG / 11-04 Route: PO, l Benazepril 19:00: Drug Form: H ermann hydrochlori 00 CAP, de 20 MG Dosing Oral Weight Capsule 99.091, kg, TID, Start date: 11/04/19 13:00:00 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, Duration: 30 day, Stop date: 12/04/19 9:00:00 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 amLODIPine 2019-0 No Notes: Memor ia 11-04 [...] 99.091, kg, TID, Start date: 11/04/19 13:00:00 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, Duration: 30 day, Stop date: 12/04/19 9:00:00 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 amLODIPine 0 No Notes: Memor ia 11-04 (Same as: l 19:00: Norvasc) lisinopril 0 No Notes: Memor ia 11-04 (Same as: l 19:00: Prinivil, [place] 00 Zestril) Amlodipine 2019-0 Yes 1 cap, [...] - (Same as: l 16:23: K-Dur 20) [place] "Do Not Crush" Give with food and full glass of water For patients unable to swallow tablet, dissolve in one half glass of water. Allow about 2 minutes for the tablets to disintegra te. Stir before giving to prepare slurry and administer . Please exclude Patient s with feeding tube less than 14 [place] (Dobhoff, J-tube etc) and pediatric and patients. Potassium 2019-0 No Notes: Memori a Chloride - (Same as: l 16: K-Dur 20) [place] 00 "Do Not Crush" Give with food and full glass of water For patients unable to swallow tablet, dissolve in one half glass of water. Allow about 2 minutes for the tablets to disintegra te. Stir before giving to prepare slurry and administer . Please exclude Patient s with feeding tube less than 14 Armenian (Dobhoff, J-tube etc) and pediatric and patients. Potassium 2019-0 No Notes: Memori a Chloride - (Same as: l 16:: K-Dur 20) [place] "Do Not Crush" Give with food and full glass of water For patients unable to swallow tablet, dissolve in one half glass of water. Allow about 2 minutes for the tablets to disintegra te. Stir before giving to prepare slurry and administer . Please exclude Patient s with feeding tube less than 14 [place] (Dobhoff, J-tube etc) and pediatric and patients. epoetin 2019-0 No Notes: Memoria franca 11-04 (Same as: l 15:00: Procrit) [place] 00 epoetin franca [id number] unit/1 ml VL. For dialysis use only. (Procrit) WASTE: F/P - Red; E -Red MEDICATION WASTE Product Size: 73017 unit Product Wasted: ___ unit epoetin 2020-0 No Notes: Memoria franca 11-04 (Same as: l 15:00: Procrit) [place] 00 epoetin franca 23355 unit/1 ml VL. For dialysis use only. (Procrit) WASTE: F/P - Red; E -Red MEDICATION WASTE Product Size: 77029 unit Product Wasted: ___ unit epoetin 2020-0 No Notes: Memoria franca 11-04 (Same as: l 15:00: Procrit) [place] 00 epoetin franca 45107 unit/1 ml VL. For dialysis use only. (Procrit) WASTE: F/P - Red; E -Red MEDICATION WASTE Product Size: 00460 unit Product Wasted: ___ unit Lisinopril 2020-0 No Notes: Memor ia 11-04 (Same as: l 14:47: Prinivil, [place] 00 Zestril) Lisinopril 2020-0 No Notes: Memor ia 11-04 (Same as: l 14:47: Prinivil, [place] 00 Zestril) Lisinopril 2020-0 No Notes: Memor ia 11-04 (Same as: l 14:47: Prinivil, [place] 00 Zestril) Vancomycin 2020-0 No 2000 mg: Me moria - infuse l 14:40: over 2.5 [place] 00 hours For adult patients only: Round [...] moria - infuse l 14:40: over 2.5 [place] 00 hours For adult patients only: Round to nearest 250 mg per Medical Staff approval MEDICATION WASTE Product Size: 1000 mg Product Wasted: ___ mg Lasix 2020-0 No Notes: Memoria 1- (Same as: l 23:00: Lasix) [place] 00 May cause GI upset. Give with food or milk. Lasix No Notes: Memoria 1- (Same as: l 23:00: Lasix) [place] 00 May cause GI upset. Give with [...] s with feeding tube less than 14 [place] (Dobhoff, J-tube etc) and pediatric and patients. Epogen No Notes: Memoria 1- (Same as: l 15:32: Procrit) [place] 00 epoetin [place] 50166 unit/1 ml VL. For dialysis use only. (Procrit) WASTE: F/P - Red; E -Red MEDICATION WASTE Product Size: 01614 unit Product Wasted: ___ unit Potassium No Notes: Memori a Chloride - (Same as: l 15:32: K-Dur 20) [place] 00 "Do Not Crush" Give with food and full glass of water For patients unable to swallow tablet, dissolve in one half glass of water. Allow about 2 minutes for the tablets to disintegra te. Stir before giving to prepare slurry and administer . Please exclude Patient s with feeding tube less than 14 Armenian (Dobhoff, J-tube etc) and pediatric and patients. Epogen No Notes: Memoria 11-03 (Same as: l 15:32: Procrit) [place] epoetin [place] 05544 unit/1 ml VL. For dialysis use only. (Procrit) WASTE: F/P - Red; E -Red MEDICATION WASTE Product Size: 19688 unit Product Wasted: ___ unit Potassium No [...] s with feeding tube less than 14 Armenian (Dobhoff, J-tube etc) and pediatric and patients. Epogen No Notes: Memoria 11-03 (Same as: l 15:32: Procrit) [place] epoetin [place] 40612 unit/1 ml VL. For dialysis use only. (Procrit) WASTE: F/P - Red; E -Red MEDICATION WASTE Product Size: 57932 unit Product Wasted: ___ unit Dilaudid No Notes: Memoria - Same as: l 18:03: Dilaudid [place] Dilaudid No Notes: Memoria - Same as: l 18:03: Dilaudid [place] Dilaudid No Notes: Memoria -25 Same as: l 18:03: Dilaudid [place] heparin No 10,000 Memoria 1-25 unit, 10 l 02:00: mL, Route: [place] 00 DIALYSIS, Drug form: INJ, ONCALL, Dosing Weight 99.091, kg, Start date: 11/01/19 20:00:00 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, Duration: 1 doses or times, 0 heparin 2020-0 No 10,000 Memoria 1-25 unit, 10 l 02:00: mL, Route: [place] 00 DIALYSIS, Drug form: INJ, ONCALL, Dosing Weight 99.091, kg, Start date: 11/01/19 20:00:00 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, Duration: 1 doses or times, 0 heparin 2020-0 No 10,000 Memoria 1-25 unit, 10 l 02:00: mL, Route: [place] 00 DIALYSIS, Drug form: INJ, ONCALL, Dosing Weight 99.091, kg, Start date: 11/01/19 20:00:00 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, Duration: 1 doses or times, 0 vancomycin [...] s with feeding tube less than 14 Armenian (Dobhoff, J-tube etc) and pediatric and patients. [...] s with feeding tube less than 14 Armenian (Dobhoff, J-tube etc) and pediatric and patients. potassium 2020-0 No Notes: Memori a chloride 1-24 (Same as: l 19:51: K-Dur 20) [place] 00 "Do Not Crush" Give with food and full glass of water For patients unable to swallow tablet, dissolve in one half glass of water. Allow about 2 minutes for the tablets to disintegra te. Stir before giving to prepare slurry and administer . Please exclude Patient s with feeding tube less than 14 Armenian (Dobhoff, J-tube etc) and pediatric and patients. Dilaudid 2020-0 No Notes: Memoria 1-24 Same as: l 18:47: Dilaudid [place] 00 Dilaudid 2019-0 No Notes: Memoria 1-24 Same as: l 18:47: Dilaudid [place] 00 Dilaudid 2019-0 No Notes: Memoria 1-24 Same as: l 18:47: Dilaudid [place] 00 Potassium 2019-0 No Notes: Memori a Chloride 1-24 (Same as: l 16:00: K-Dur 20) [place] 00 "Do Not Crush" Give with food and full glass of water For patients unable to swallow tablet, dissolve in one half glass of water. Allow about 2 minutes for the tablets to disintegra te. Stir before giving to prepare slurry and administer . Please exclude Patient s with feeding tube less than 14 Armenian (Dobhoff, J-tube etc) and pediatric and patients. [...] s with feeding tube less than 14 Armenian (Dobhoff, J-tube etc) and pediatric and patients. [...] s with feeding tube less than 14 Armenian (Dobhoff, J-tube etc) and pediatric and patients. heparin 2020-0 No 10,000 Memoria 1-24 unit, 10 l 01:00: mL, Route: [place] 00 DIALYSIS, Drug form: INJ, ONCALL, Dosing Weight 99.091, kg, Start date: 10/31/19 19:00:00 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, Duration: 1 doses or times, 0 heparin 2020-0 No 10,000 Memoria 1-24 unit, 10 l 01:00: mL, Route: [place] 00 DIALYSIS, Drug form: INJ, ONCALL, Dosing Weight 99.091, kg, Start date: 10/31/19 19:00:00 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, Duration: 1 doses or times, 0 heparin 2020-0 No 10,000 Memoria 1-24 unit, 10 l 01:00: mL, Route: DIALYSIS, Drug form: INJ, ONCALL, Dosing Weight 99.091, kg, Start date: 10/31/19 19:00:00 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, Duration: 1 doses or times, 0 Albuterol 2020-0 No Notes: Memori a 0.833 MG/ML - (Same as: :: Duoneb) [place] Ipratropium 00 Dowell 0.167 MG/ML Inhalant Solution [DuoNeb] Albuterol 2020-0 No Notes: Memori a 0.833 MG/ML -23 (Same as: :: Duoneb) [place] Ipratropium 00 [place] 0.167 MG/ML Inhalant Solution [DuoNeb] Albuterol 2020-0 No Notes: Memori a 0.833 MG/ML 1-23 (Same as: :: Duoneb) [place] Ipratropium 00 [place] 0.167 MG/ML Inhalant Solution [DuoNeb] Potassium 2020-0 No Notes: Memori a Chloride -23 (Same as: l 11:58: K-Dur 20) [place] 00 "Do Not Crush" Give with food and full glass of water For patients unable to swallow tablet, dissolve in one half glass of water. Allow about 2 minutes for the tablets to disintegra te. Stir before giving to prepare slurry and administer . Please exclude Patient s with feeding tube less than 14 Armenian (Dobhoff, J-tube etc) and pediatric and patients. Potassium 2020-0 No Notes: Memori a Chloride 1-23 (Same as: l 11:58: K-Dur 20) [place] 00 "Do Not Crush" Give with food and full glass of water For patients unable to swallow tablet, dissolve in one half glass of water. Allow about 2 minutes for the tablets to disintegra te. Stir before giving to prepare slurry and administer . Please exclude Patient s with feeding tube less than 14 Armenian (Dobhoff, J-tube etc) and pediatric and patients. [...] s with feeding tube less than 14 Armenian (Dobhoff, J-tube etc) and pediatric and patients. heparin 2020-0 No 10,000 Memoria 1-23 unit, 10 l 05:00: mL, Route: [place] 00 DIALYSIS, Drug form: INJ, ONCALL, Dosing Weight 99.091, kg, Start date: 10/30/19 23:00:00 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, Duration: 1 doses or times, 0 heparin 2020-0 No 10,000 Memoria 1-23 unit, 10 l 05:00: mL, Route: [place] 00 DIALYSIS, Drug form: INJ, ONCALL, Dosing Weight 99.091, kg, Start date: 10/30/19 23:00:00 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, Duration: 1 doses or times, 0 heparin 2020-0 No 10,000 Memoria 1-23 unit, 10 l 05:00: mL, Route: [place] 00 DIALYSIS, Drug form: INJ, ONCALL, Dosing Weight 99.091, kg, Start date: 10/30/19 23:00:00 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, Duration: 1 doses or times, 0 Potassium 2020-0 No Notes: Memori a Chloride 1-23 (Same as: l 04:05: K-Dur 20) [place] 00 "Do Not Crush" Give with food and full glass of water For patients unable to swallow tablet, dissolve in one half glass of water. Allow about 2 minutes for the tablets to disintegra te. Stir before giving to prepare slurry and administer . Please exclude Patient s with feeding tube less than 14 Armenian (Dobhoff, J-tube etc) and pediatric and patients. Potassium 2020-0 No Notes: Memori a Chloride 1-23 (Same as: l 04:05: K-Dur 20) [place] 00 "Do Not Crush" Give with food and full glass of water For patients unable to swallow tablet, dissolve in one half glass of water. Allow about 2 minutes for the tablets to disintegra te. Stir before giving to prepare slurry and administer . Please exclude Patient s with feeding tube less than 14 Armenian (Dobhoff, J-tube etc) and pediatric and patients. [...] s with feeding tube less than 14 Armenian (Dobhoff, J-tube etc) and pediatric and patients. Tylenol 2020-0 No Notes: Do Memor ia 1-22 not exceed l 19:42: 4 gm/day. [place] 00 (Same as: Tylenol) Tylenol 2020-0 No Notes: Do Memor ia 1-22 not exceed l 19:42: 4 gm/day. [place] (Same as: Tylenol) Tylenol 2020-0 No Notes: Do Memor ia 1-22 not exceed l 19:42: 4 gm/day. [place] (Same as: Tylenol) Roxicodone 2020-0 No Notes: Memor ia 1-22 (Same as: l 19:41: Roxicodone ) Roxicodone 2020-0 No Notes: Memor ia 1-22 (Same as: l 19:41: Roxicodone ) Roxicodone 2020-0 No Notes: Memor ia 1-22 (Same as: l 19:41: Roxicodone [place] 00 ) Acetaminoph 2020-0 No 1 tab, Kojo lynn en 325 MG / 10-30 Route: PO, l Oxycodone 19:20: Drug Form: Jarad rider Hydrochlori 00 TAB, de 5 MG Dosing Oral Tablet Weight [Percocet 99.091, 5/325] kg, Q4H, PRN Pain Score 4-6, Start date: 10/30/19 13:20:00 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, Duration: 30 day, Stop date: 11/29/19 13:19:00 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 Acetaminoph 2020-0 No 1 tab, Kojo lynn en 325 MG / 10-30 Route: PO, l Oxycodone 19:20: Drug Form: Jarad rider Hydrochlori 00 TAB, de 5 MG Dosing Oral Tablet Weight [Percocet 99.091, 5/325] kg, Q4H, PRN Pain Score 4-6, Start date: 10/30/19 13:20:00 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, Duration: 30 day, Stop date: 11/29/19 13:19:00 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 Acetaminoph 2020-0 No 1 tab, Kojo lynn en 325 MG / 10-30 Route: PO, l Oxycodone 19:20: Drug Form: Jarad rider Hydrochlori 00 TAB, de 5 MG Dosing Oral Tablet Weight [Percocet 99.091, 5/325] kg, Q4H, PRN Pain Score 4-6, Start date: 10/30/19 13:20:00 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, Duration: 30 day, Stop date: 11/29/19 13:19:00 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 vancomycin 2000 mg: Me moria + Sodium [...] Memoria 10-30 (Same As: l 16:00: Maxipime) [place] 00 MEDICATION WASTE Product Size: 1000 mg [...] Memoria 10-30 (Same As: l 16:00: Maxipime) [place] 00 MEDICATION WASTE Product Size: 1000 mg [...] 10-30 (Same as: l tablet, 15:00: Adalat [place] extended 00 CC,Procard release ia XL) "Do Not Crush" "Avoid grapefruit and grapefruit juice" Fauzia-Conor 2019-0 No Fauzia-Conor Mem oria oral tablet 10-30 oral l 15:00: tablet, 1 [place] 00 tab, Route: PO, Daily, 10/30/19 9:00:00 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, Duration: 30 day, Stop date: 11/28/19 9:00:00 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 Nephro-Conor 2020-0 No Notes: Kojo lynn Rx 1-22 (Same as: l 15:00: Nephro-Vit [place] 00 e Rx and Diatx) Give with food. NIFEdipine No Notes: Memor ia 90 mg oral 1-22 (Same as: l tablet, 15:00: Adalat [place] extended 00 CC,Procard release ia XL) "Do Not Crush" "Avoid grapefruit and grapefruit juice" Fauzia-Conor 2020-0 No Fauzia-Conor Mem oria oral tablet -22 oral l 15:00: tablet, 1 [place] 00 tab, Route: PO, Daily, 10/30/19 9:00:00 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, Duration: 30 day, Stop date: 11/28/19 9:00:00 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 Nephro-Conor 2020-0 No Notes: Kojo lynn Rx -22 (Same as: l 15:00: Nephro-Vit [place] 00 e Rx and Diatx) Give with food. NIFEdipine No Notes: Memor ia 90 mg oral -22 (Same as: l tablet, 15:00: Adalat [place] extended 00 CC,Procard release ia XL) "Do Not Crush" "Avoid grapefruit and grapefruit juice" Fauzia-Conor 2020-0 No Fauzia-Conor Mem oria oral tablet -22 oral l 15:00: tablet, 1 [place] 00 tab, Route: PO, Daily, 10/30/19 9:00:00 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, Duration: 30 day, Stop date: 11/28/19 9:00:00 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 Nephro-Conor 2020-0 No Notes: Kojo lynn Rx 1-22 (Same as: l 15:00: Nephro-Vit [place] 00 e Rx and Diatx) Give with food. Epoetin 0 No Notes: Memoria Franca 1-22 (Same as: l 14:39: Procrit) [place] 00 epoetin [place] 44608 unit/1 ml VL. For dialysis use only. (Procrit) WASTE: F/P - Red; E -Red MEDICATION WASTE Product Size: 55895 unit Product Wasted: ___ unit Epoetin 2020-0 No Notes: Memoria Franca 1-22 (Same as: l 14:39: Procrit) [place] 00 epoetin franca 50930 unit/1 ml VL. For dialysis use only. (Procrit) WASTE: F/P - Red; E -Red MEDICATION WASTE Product Size: 59538 unit Product Wasted: ___ unit Epoetin 2020-0 No Notes: Memoria Franca 1-22 (Same as: l 14:39: Procrit) [place] 00 epoetin franca 73619 unit/1 ml VL. For dialysis use only. (Procrit) WASTE: F/P - Red; E -Red MEDICATION WASTE Product Size: 10444 unit Product Wasted: ___ unit Potassium 2020-0 No Notes: Memori a Chloride 1-22 (Same as: l 14:38: K-Dur 20) [place] 00 "Do Not Crush" Give with food and full glass of water For patients unable to swallow tablet, dissolve in one half glass of water. Allow about 2 minutes for the tablets to disintegra te. Stir before giving to prepare slurry and administer . Please exclude Patient s with feeding tube less than 14 Armenian (Dobhoff, J-tube etc) and pediatric and patients. Potassium 2020-0 No Notes: Memori a Chloride 1-22 (Same as: l 14:38: K-Dur 20) [place] 00 "Do Not Crush" Give with food and full glass of water For patients unable to swallow tablet, dissolve in one half glass of water. Allow about 2 minutes for the tablets to disintegra te. Stir before giving to prepare slurry and administer . Please exclude Patient s with feeding tube less than 14 Armenian (Dobhoff, J-tube etc) and pediatric and patients. [...] s with feeding tube less than 14 Armenian (Dobhoff, J-tube etc) and pediatric and patients. carvedilol 2020-0 No Notes: Memor ia 1-22 Give with l 03:00: food. [place] 00 (Same As: Coreg) tamsulosin 2020-0 No Notes: Memor ia - (Same As: l 03:00: Flomax) [place] 00 "Do Not Crush" carvedilol 2020-0 No Notes: Memor ia 1-22 Give with l 03:00: food. [place] 00 (Same As: Coreg) tamsulosin 2020-0 No Notes: Memor ia - (Same As: l 03:00: Flomax) [place] "Do Not Crush" carvedilol 2020-0 No Notes: Memor ia 1-22 Give with l 03:00: food. [place] (Same As: Coreg) tamsulosin 2019-0 No Notes: Memor ia - (Same As: l 03:00: Flomax) [place] 00 "Do Not Crush" Lactulose 2020-0 No Notes: Memori a 667 MG/ML - (Same l Oral 00:36: as:Chronul [place] Solution 00 ac) Lactulose 2020-0 No Notes: Memori a 1-22 Lactulose l 00:36: 300ml, [place] 00 Water for Irrigation 700ml - total volume = 1000ml Lactulose 2020-0 No Notes: Memori a 667 MG/ML - (Same l Oral 00:36: as:Chronul [place] Solution 00 ac) Lactulose 2020-0 No Notes: Memori a 1-22 Lactulose l 00:36: 300ml, [place] 00 Water for Irrigation 700ml - total volume = 1000ml Lactulose 2020-0 No Notes: Memori a 667 MG/ML 1-22 (Same l Oral 00:36: as:Chronul [place] Solution 00 ac) Lactulose 2020-0 No Notes: Memori a 1-22 Lactulose l 00:36: 300ml, [place] 00 Water for Irrigation 700ml - total volume = 1000ml tizanidine 2020-0 No Notes: Memor ia 1-21 (Same As: l 22:22: Zanaflex) [place] 00 tizanidine 2020-0 No Notes: Memor ia 1-21 (Same As: l 22:22: Zanaflex) [place] 00 tizanidine 2020-0 No Notes: Memor ia 1-21 (Same As: l 22:22: Zanaflex) [place] Hydralazine 2019-0 No Notes: Kojo lynn Hydrochlori [...] PO, l MG Oral 21:57: TID, 0 [place] Capsule 00 Refill(s) calcium 2020-0 Yes 2,001 mg = Kojo lynn acetate 667 1-21 3 cap, PO, l MG Oral 21:57: TID, 0 [place] Capsule 00 Refill(s) calcium 2020-0 Yes 2,001 mg = Kojo lynn acetate 667 1-21 3 cap, PO, l MG Oral 21:57: TID, 0 [place] Capsule 00 Refill(s) Diazepam 2020-0 No Notes: Memoria 1-21 (Same as: l 21:25: Valium) [place] Diazepam 2020-0 No Notes: Memoria 1-21 (Same as: l 21:25: Valium) [place] Diazepam 2020-0 No Notes: Memoria 1-21 (Same as: l 21:25: Valium) [place] Hydralazine 2019-0 No Notes: Kojo lynn 1-21 (Same as: l 18:50: Apresoline [place] 00 ) Push over 5 minutes Hydralazine [...] s with feeding tube less than 14 Armenian (Dobhoff, J-tube etc) and pediatric and patients. Magnesium 2020-0 No Notes: Memori a Sulfate 1-21 WASTE: F/P l 14:55: - Sink; E [place] - Municipal Trash Bin Potassium 2019-0 No Notes: Memori a Chloride 1-21 (Same as: l 14:55: K-Dur 20) [place] 00 "Do Not Crush" Give with food and full glass of water For patients unable to swallow tablet, dissolve in one half glass of water. Allow about 2 minutes for the tablets to disintegra te. Stir before giving to prepare slurry and administer . Please exclude Patient s with feeding tube less than 14 Armenian (Dobhoff, J-tube etc) and pediatric and patients. Magnesium 2020-0 No Notes: Memori a Sulfate -21 WASTE: F/P l 14:55: - Sink; E [place] - [facility] Trash Bin Potassium 2019-0 No Notes: Memori a Chloride -21 (Same as: l 14:55: K-Dur 20) [place] 00 "Do Not Crush" Give with food and full glass of water For patients unable to swallow tablet, dissolve in one half glass of water. Allow about 2 minutes for the tablets to disintegra te. Stir before giving to prepare slurry and administer . Please exclude Patient s with feeding tube less than 14 Armenian (Dobhoff, J-tube etc) and pediatric and patients. Magnesium 2020-0 No Notes: Memori a Sulfate 1-21 WASTE: F/P l 14:55: - Sink; E [place] 00 - Municipal Trash Bin Diazepam 2020-0 Yes 10 mg, PO, Mem oria 1-21 PRN as l 08:31: needed for [place] 00 anxiety, 0 Refill(s) Diazepam 2020-0 Yes 10 mg, PO, Mem oria 1-21 PRN as l 08:31: needed for [place] 00 anxiety, 0 Refill(s) Diazepam 2020-0 Yes 10 mg, PO, Mem oria 1-21 PRN as l 08:31: needed for [place] 00 anxiety, 0 Refill(s) zolpidem 10 2019-0 Yes 10 mg = 1 M emoria mg oral -21 tab, PO, l tablet 08:27: Bedtime, [place] 00 PRN as needed for insomnia, 0 Refill(s) zolpidem 10 2020-0 Yes 10 mg = 1 M emoria mg oral -21 tab, PO, l tablet 08:27: Bedtime, [place] 00 PRN as needed for insomnia, 0 Refill(s) zolpidem 10 2020-0 Yes 10 mg = 1 M emoria mg oral -21 tab, PO, l tablet 08:27: Bedtime, [place] 00 PRN as needed for insomnia, 0 [...] Blood Glucose Results, Start date: 10/29/19 0:50:00 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, Duration: 30 day, Stop date: 11/28/19 0:49:00 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, 0 Glucagon 2020-0 No 1 mg, Memoria 10-29 Route: IM, l 06:50: Drug form: PDR/INJ, PRN, Dosing Weight 90.909, kg, PRN Blood Glucose Results, Start date: 10/29/19 0:50:00 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, Duration: 30 day, Stop date: 11/28/19 0:49:00 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, 0 Ondansetron 2019-0 No Notes: Kojo lynn [...] - 25 mL, l (D50W) 06:50: Route: [place] IVP, Drug Form: INJ, Dosing Weight 90.909, kg, PRN, PRN Blood Glucose Results, Start date: 10/29/19 0:50:00 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, Duration: 30 day, Stop date: 11/28/19 0:49:00 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, 0 Glucagon 2019-0 No 1 mg, Memoria 10-29 Route: IM, l 06:50: Drug form: [place] 00 PDR/INJ, PRN, Dosing Weight 90.909, kg, PRN Blood Glucose Results, Start date: 10/29/19 0:50:00 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, Duration: 30 day, Stop date: 11/28/19 0:49:00 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, 0 Ondansetron No Notes: Kojo lynn 10-29 [...] 10-29 25 mL, l (D50W) 06:50: Route: [place] 00 IVP, Drug Form: INJ, Dosing Weight 90.909, kg, PRN, PRN Blood Glucose Results, Start date: 10/29/19 0:50:00 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, Duration: 30 day, Stop date: 11/28/19 0:49:00 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, 0 Glucagon 2019-0 No 1 mg, Memoria 10-29 Route: IM, l 06:50: Drug form: [place] PDR/INJ, PRN, Dosing Weight 90.909, kg, PRN Blood Glucose Results, Start date: 10/29/19 0:50:00 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, Duration: 30 day, Stop date: 11/28/19 0:49:00 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, 0 Ondansetron No Notes: Kojo lynn 10-29 [...] 10-29 (Same as: l / 03:22: Duoneb) [place] Ipratropium 00 Dowell 0.167 MG/ML Inhalant Solution [DuoNeb] Albuterol No Notes: SEE Me moria 0.83 MG/ML 10-29 RT l Inhalant 03:22: DOCUMENTAT [place] Solution 00 ION (Same as: Proventil) Albuterol No Notes: Memori a 0.833 MG/ML 10-29 (Same as: l / 03:22: Duoneb) [place] Ipratropium 00 Dowell 0.167 MG/ML Inhalant Solution [DuoNeb] Albuterol No Notes: SEE Me moria 0.83 MG/ML 10-29 RT l Inhalant 03:22: DOCUMENTAT [place] Solution 00 ION (Same as: Proventil) Albuterol No Notes: Memori a 0.833 MG/ML 10-29 (Same as: l / 03:22: Duoneb) [place] Ipratropium 00 [place]ell 0.167 MG/ML Inhalant Solution [DuoNeb] Albuterol No Notes: SEE Me moria 0.83 MG/ML 10-29 RT l Inhalant 03:22: DOCUMENTAT [place] Solution 00 ION (Same as: Proventil) carvedilol 2018-10 Yes 12.5 mg = Me moria 12.5 mg 1-12 1 tab, PO, l oral tablet 17:56: Q12H, # 60 [place] 00 tab, 0 Refill(s), Pharmacy: [facility] Furosemide 2018-10 Yes 80 mg = 2 Me moria 40 MG Oral 1-12 tab, PO, l Tablet 17:56: TID, # 180 [place] 00 tab, 0 Refill(s), Pharmacy: [facility] Hydralazine 2018-10 Yes 50 mg = 2 M emoria Hydrochlori 1-12 tab, PO, l de 25 MG 17:56: Q8H, # 180 Her [place] Oral Tablet 00 tab, 0 Refill(s), Pharmacy: [facility] lisinopril 2018-10 Yes 40 mg = 1 Me moria 40 mg oral 1-12 tab, PO, l tablet 17:56: Daily, # [place] 00 30 tab, 0 Refill(s), Pharmacy: [facility] NIFEdipine 2018-10 Yes 90 mg = 1 Me moria 90 mg oral 1-12 tab, PO, l tablet, 17:56: Daily, # [place] n extended 00 30 tab, 0 release Refill(s), Pharmacy: [facility] carvedilol 2018-10 Yes 12.5 mg = Me moria 12.5 mg 1-12 1 tab, PO, l oral tablet 17:56: Q12H, # 60 [place] 00 tab, 0 Refill(s), Pharmacy: [facility] Furosemide 2018-10 Yes 80 mg = 2 Me moria 40 MG Oral 1-12 tab, PO, l Tablet 17:56: TID, # 180 [place] nn 00 tab, 0 Refill(s), Pharmacy: [facility] Hydralazine 2018-10 Yes 50 mg = 2 M emoria Hydrochlori 1-12 tab, PO, l de 25 MG 17:56: Q8H, # 180 Her [place] Oral Tablet 00 tab, 0 Refill(s), Pharmacy: [facility] lisinopril 2018-10 Yes 40 mg = 1 Me moria 40 mg oral 1-12 tab, PO, l tablet 17:56: Daily, # [place] 00 30 tab, 0 Refill(s), Pharmacy: [facility] NIFEdipine 2018-10 Yes 90 mg = 1 Me moria 90 mg oral 1-12 tab, PO, l tablet, 17:56: Daily, # [place] n extended 00 30 tab, 0 release Refill(s), Pharmacy: [facility] carvedilol 2018-10 Yes 12.5 mg = Me moria 12.5 mg 1-12 1 tab, PO, l oral tablet 17:56: Q12H, # 60 [place] 00 tab, 0 Refill(s), Pharmacy: [facility] Furosemide 2018-10 Yes 80 mg = 2 Me moria 40 MG Oral 1-12 tab, PO, l Tablet 17:56: TID, # 180 [place] 00 tab, 0 Refill(s), Pharmacy: [facility] Hydralazine 2018-10 Yes 50 mg = 2 M emoria Hydrochlori 1-12 tab, PO, l de 25 MG 17:56: Q8H, # 180 Her meeks Oral Tablet 00 tab, 0 Refill(s), Pharmacy: [facility] lisinopril 2018-10 Yes 40 mg = 1 Me moria 40 mg oral 1-12 tab, PO, l tablet 17:56: Daily, # [place] 00 30 tab, 0 Refill(s), Pharmacy: [facility] NIFEdipine 2018-10 Yes 90 mg = 1 Me moria 90 mg oral 1-12 tab, PO, l tablet, 17:56: Daily, # [place] n extended 00 30 tab, 0 release Refill(s), Pharmacy: [facility] carvedilol 2018-10 No Notes: Memor ia 1-12 Give with l 03:00: food. [place] 00 (Same As: Coreg) carvedilol 2018-10 No Notes: Memor ia 1-12 Give with l 03:00: food. [place] 00 (Same As: Coreg) carvedilol 2018-10 No Notes: Memor ia 1-12 Give with l 03:00: food. [place] 00 (Same As: Coreg) NIFEdipine 2018-10 No 90 mg, Memor ia 60 mg oral 10-19 Route: PO, l tablet, 15:00: Drug form: Herm dionne extended 00 ERTAB, release Daily, Dosing Weight 96.364, kg, Start date: 08/19/19 9:00:00 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, Duration: 30 day, Stop date: 09/17/19 9:00:00 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, 0 lisinopril 2018-10 No Notes: Memor ia 1-11 (Same as: l 15:00: Prinivil, [place] 00 Zestril) NIFEdipine 2018-10 No 90 mg, Memor ia 60 mg oral 10-19 Route: PO, l tablet, 15:00: Drug form: Herm dionne extended 00 ERTAB, release Daily, Dosing Weight 96.364, kg, Start date: 08/19/19 9:00:00 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, Duration: 30 day, Stop date: 09/17/19 9:00:00 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, 0 lisinopril 2018-10 No Notes: Memor ia 1-11 (Same as: l 15:00: Prinivil, [place] 00 Zestril) NIFEdipine 2018-10 No 90 mg, Memor ia 60 mg oral 10-19 Route: PO, l tablet, 15:00: Drug form: Herm dionne extended 00 ERTAB, release Daily, Dosing Weight 96.364, kg, Start date: 08/19/19 9:00:00 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, Duration: 30 day, Stop date: 09/17/19 9:00:00 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, 0 lisinopril 2018-10 No Notes: Memor ia 1-11 (Same as: l 15:00: Prinivil, [place] 00 Zestril) carvedilol 2018-10 No Notes: Memor ia 1-11 Give with l 03:00: food. [place] 00 (Same As: Coreg) carvedilol 2018-10 No Notes: Memor ia 1-11 Give with l 03:00: food. [place] 00 (Same As: Coreg) carvedilol 2018-10 No Notes: Memor ia 1-11 Give with l 03:00: food. [place] 00 (Same As: Coreg) Clonidine 2018-10 No Notes: Memori a 1-11 (Same As: l 00:45: Catapres) [place] Clonidine 2018-10 No Notes: Memori a 1-11 (Same As: l 00:45: Catapres) [place] 00 Clonidine 2018-10 No Notes: Memori a [...] Oral Tablet 00 Hydralazine 2018-10 No Notes: Kjoo lynn 1-10 (Same as: l 22:00: Apresoline [place] 00 ) May interfere w/enteral feedings Take With Food. Hydralazine 2018-10 No Notes: Kojo lynn 1-10 (Same as: l 22:00: Apresoline [place] ) May interfere w/enteral feedings Take With Food. Hydralazine 2018-10 No Notes: Kojo lynn 1-10 (Same as: l 22:00: Apresoline [place] 00 ) May interfere w/enteral feedings Take With Food. Lisinopril 2018-10 No Notes: Memor ia 1-10 (Same as: l 20:11: Prinivil, [place] 00 Zestril) Lisinopril 2018-10 No Notes: Memor ia 1-10 (Same as: l 20:11: Prinivil, [place] 00 Zestril) Lisinopril 2018-10 No Notes: Memor [...] kg, Priority: NOW, Start date: 08/18/19 9:29:00 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, Duration: 1 doses or times, 0 heparin 2018-10 No 10,000 Memoria 1-10 unit/mL, l 15:29: Route: DIALYSIS, Drug form: INJ, ONCALL, Dosing Weight 96.364, kg, Priority: NOW, Start date: 08/18/19 9:29:00 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, Duration: 1 doses or times, 0 heparin 2018-10 No 10,000 Memoria 1-10 unit/mL, l 15:29: Route: DIALYSIS, Drug form: INJ, ONCALL, Dosing Weight 96.364, kg, Priority: NOW, Start date: 08/18/19 9:29:00 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, Duration: 1 doses or times, 0 heparin 2018-10 No 10,000 Memoria 1-09 unit, 10 l 19:00: mL, Route: [place] 00 DIALYSIS, Drug form: INJ, ONCALL, Dosing Weight 96.364, kg, Start date: 08/17/19 13:00:00 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, Duration: 1 doses or times, 0 heparin 2018-10 No 10,000 Memoria 1-09 unit, 10 l 19:00: mL, Route: [place] 00 DIALYSIS, Drug form: INJ, ONCALL, Dosing Weight 96.364, kg, Start date: 08/17/19 13:00:00 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, Duration: 1 doses or times, 0 heparin 2019- No 10,000 Memoria 1-09 unit, 10 l 19:00: mL, Route: [place] 00 DIALYSIS, Drug form: INJ, ONCALL, Dosing Weight 96.364, kg, Start date: 08/17/19 13:00:00 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, Duration: 1 doses or times, 0 Sodium 2019- No 1,000 mL, Memori a Chloride 1-09 1,000 l 0.9% 18:06: ml/hr, [place] (Bolus) IV 00 Infuse Over: 1 hr, Route: IV, 1,000, Drug form: INJ, PRN, Priority: STAT, Dosing Weight 96.364 kg, Start date: 08/17/19 12:06:00 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, Duration: 30 day, Stop date: 09/16/19 12:05:00 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, PRN Dialysis, 0 Sodium 2018- No 1,000 mL, Memori a Chloride 1-09 1,000 l 0.9% 18:06: ml/hr, [place] (Bolus) IV 00 Infuse Over: 1 hr, Route: IV, 1,000, Drug form: INJ, PRN, Priority: STAT, Dosing Weight 96.364 kg, Start date: 08/17/19 12:06:00 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, Duration: 30 day, Stop date: 09/16/19 12:05:00 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, PRN Dialysis, 0 Sodium 2019- No 1,000 mL, Memori a Chloride 1-09 1,000 l 0.9% 18:06: ml/hr, [place] (Bolus) IV 00 Infuse Over: 1 hr, Route: IV, 1,000, Drug form: INJ, PRN, Priority: STAT, Dosing Weight 96.364 kg, Start date: 08/17/19 12:06:00 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, Duration: 30 day, Stop date: 09/16/19 12:05:00 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, PRN Dialysis, 0 Potassium 2019- No Notes: [...] s with feeding tube less than 14 Armenian (Dobhoff, J-tube etc) and pediatric and patients. [...] s with feeding tube less than 14 [place] (Dobhoff, J-tube etc) and pediatric and patients. Potassium 2018-10 No Notes: Memori a Chloride 1-08 (Same as: l 15:18: K-Dur 20) [place] 00 "Do Not Crush" Give with food and full glass of water For patients unable to swallow tablet, dissolve in one half glass of water. Allow about 2 minutes for the tablets to disintegra te. Stir before giving to prepare slurry and administer . Please exclude Patient s with feeding tube less than 14 Armenian (Dobhoff, J-tube etc) and pediatric and patients. Seroquel 2018-10 No Notes: Memoria 1-08 (Same as: l 02:36: SEROquel) [place] Seroquel 2018-10 No Notes: Memoria 1-08 (Same as: l 02:36: SEROquel) [place] Seroquel 2018-10 No Notes: Memoria 1-08 (Same as: l 02:36: SEROquel) [place] Ativan 2018-10 No Notes: Memoria 1-07 (Same as: l 21:45: Ativan) [place] Ativan 2018-10 No Notes: Memoria 1-07 (Same as: l 21:45: Ativan) [place] Ativan 2018-10 No Notes: Memoria 1-07 (Same as: l 21:45: Ativan) [place] Ativan 2018-10 No Notes: Memoria 1-07 (Same as: l 19:03: Ativan) [place] Ativan 2018-10 No Notes: Memoria 1-07 (Same as: l 19:03: Ativan) Ativan 2018-10 No Notes: Memoria 1-07 (Same as: l 19:03: Ativan) [place] amLODIPine 2018-10 No Notes: Memor ia 1-07 (Same as: l 15:00: Norvasc) [place] 00 lisinopril 2018-10 No Notes: Memor ia 1- (Same as: l 15:00: Prinivil, [place] 00 Zestril) multivitami 2018-10 No Notes: Kojo [...] n 1-07 (Same l 15:00: as:One Tab [place] 00 Daily, Tab-A-Conor + Beta Carotene) Give [...] ia 1-07 (Same as: l 15:00: Norvasc) [place] lisinopril 2018-10 No Notes: Memor ia 1-07 (Same as: l 15:00: Prinivil, [place] 00 [...] Memoria 1-07 (Same as: l 10:28: Haldol) [place] Haldol 2018-10 No Notes: Memoria 1-07 (Same as: l 10:28: Haldol) [place] Haldol 2018-10 No Notes: Memoria 1-07 (Same as: l 10:28: Haldol) [place] 00 Haldol 2018-10 No Notes: Memoria 1-07 (Same as: l 10:25: Haldol) [place] Haldol 2018-10 No Notes: Memoria 1-07 (Same as: l 10:25: Haldol) [place] Haldol 2018-10 No Notes: Memoria 1-07 (Same as: l 10:25: Haldol) [place] 00 heparin 2018-10 No Notes: Memoria 1-07 porcine l 06:00: heparin [place] 00 heparin 2018-10 No Notes: Memoria 1-07 porcine l 06:00: heparin [place] 00 heparin 2018-10 No Notes: Memoria 1-07 porcine l 06:00: heparin [place] 00 tamsulosin 2018-10 No Notes: Memor ia 1-07 (Same As: l 03:00: Flomax) [place] "Do Not Crush" tamsulosin 2018-10 No Notes: Memor ia 1-07 (Same As: l 03:00: Flomax) [place] "Do Not Crush" tamsulosin 2018-10 No Notes: Memor ia 1-07 (Same As: l 03:00: Flomax) [place] 00 "Do Not Crush" Amlodipine 2018-10 No 1 cap, Memor ia 10 MG / 06 Route: PO, l Benazepril 23:00: Drug Form: H ermann hydrochlori 00 CAP, de 20 MG Dosing Oral Weight Capsule 100.17, kg, TID, Start date: 08/14/19 17:00:00 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, Duration: 30 day, Stop date: 09/13/19 13:00:00 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 carvedilol 2018-10 No Notes: Memor ia 1-06 Give with l 23:00: food. [place] 00 (Same As: Coreg) Furosemide 2018-10 No Notes: Memor ia 1-06 (Same as: l 23:00: Lasix) [place] 00 May cause GI upset. Give with [...] 100.17, kg, TID, Start date: 08/14/19 17:00:00 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, Duration: 30 day, Stop date: 09/13/19 13:00:00 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 carvedilol 2018-10 No Notes: Memor ia 1-06 Give with l 23:00: food. [place] 00 (Same As: Coreg) Furosemide 2018-10 No [...] 100.17, kg, TID, Start date: 08/14/19 17:00:00 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, Duration: 30 day, Stop date: 09/13/19 13:00:00 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 carvedilol 2018-10 No Notes: Memor ia 1-06 Give with l 23:00: food. [place] 00 (Same As: Coreg) Furosemide 2018-10 No Notes: Memor ia 1-06 (Same as: l 23:00: Lasix) [place] 00 May cause GI upset. Give with food or milk. Hydralazine 2018-10 No Notes: Kojo lynn 1-06 (Same as: l 23:00: Apresoline [place] 00 ) May interfere w/enteral feedings Take [...] Do not crush Hydralazine 2018-10 No Notes: Okjo lynn 1-06 (Same as: l 21:58: Apresoline [...] Blood Glucose Results, Start date: 08/14/19 15:47:00 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, Duration: 30 day, Stop date: 09/13/19 15:46:00 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, 0 Glucagon 2018-10 No 1 mg, Memoria 10-14 Route: IM, l 21:47: Drug form: PDR/INJ, PRN, Dosing Weight 100.17, kg, PRN Blood Glucose Results, Start date: 08/14/19 15:47:00 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, Duration: 30 day, Stop date: 09/13/19 15:46:00 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, 0 Ondansetron 2018-10 No Notes: Kojo lynn [...] Blood Glucose Results, Start date: 08/14/19 15:47:00 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, Duration: 30 day, Stop date: 09/13/19 15:46:00 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, 0 Glucagon 2018-10 No 1 mg, Memoria 10-14 Route: IM, l 21:47: Drug form: [place] 00 PDR/INJ, PRN, Dosing Weight 100.17, kg, PRN Blood Glucose Results, Start date: 08/14/19 15:47:00 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, Duration: 30 day, Stop date: 09/13/19 15:46:00 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, 0 Ondansetron 2018-10 No Notes: Kojo lynn 10-14 (Same as: l 21:47: Zofran) [place] MEDICATION WASTE Product Size: 4 mg Product Wasted: ___ mg Acetaminoph 2018-10 No Notes: Do M emoria en 10-14 not exceed l 21:47: 4 gm/day. [place] (Same as: Tylenol) Dextrose 2018-10 No 12.5 gm, Memor ia 50% Syringe 10-14 25 mL, l 21:47: Route: [place] 00 IVP, Drug Form: INJ, Dosing Weight 100.17, kg, PRN, PRN Blood Glucose Results, Start date: 08/14/19 15:47:00 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, Duration: 30 day, Stop date: 09/13/19 15:46:00 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, 0 Glucagon 2018-10 No 1 mg, Memoria 10-14 Route: IM, l 21:47: Drug form: [place] PDR/INJ, PRN, Dosing Weight 100.17, kg, PRN Blood Glucose Results, Start date: 08/14/19 15:47:00 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, Duration: 30 day, Stop date: 09/13/19 15:46:00 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, 0 Ondansetron 2018-10 No Notes: Kojo lynn 10-14 (Same as: l 21:47: Zofran) [place] MEDICATION WASTE Product Size: 4 mg Product Wasted: ___ mg Acetaminoph 2018-10 No Notes: Do M emoria en 10-14 not exceed l 21:47: 4 gm/day. [place] (Same as: Tylenol) acetaminoph 2018-10 Yes 1 tab, PO, Memoria en-codeine 06 Q6H, PRN l #3 20:48: Pain Score [place] 00 4-6, 0 Refill(s) Amlodipine 2018-10 No 1 cap, PO, M emoria 10 MG / 06 TID, 0 l Benazepril 20:48: Refill(s) He rmann hydrochlori 00 de 20 MG Oral Capsule carvedilol 2018-10 No 6.25 mg = Me moria 6.25 mg 10-14 1 tab, PO, l oral tablet 20:48: BID, # 180 [place] 00 tab, 0 Refill(s) Hydroxyzine 2018-10 Yes 25 mg = 1 M emoria Hydrochlori 06 tab, PO, l de 25 MG 20:48: TID, 0 [place] Oral Tablet 00 Refill(s) furosemide 2018-10 No 80 mg = 1 Me moria 80 mg oral 10-14 tab, PO, l tablet 20:48: TID, 0 [place] 00 Refill(s) acetaminoph 2018-10 Yes 1 tab, PO, Memoria en-codeine 10-14 Q6H, PRN l #3 20:48: Pain Score [place] 00 4-6, 0 Refill(s) Amlodipine 2018-10 No [...] l de 25 MG 20:48: TID, 0 [place] Oral Tablet 00 Refill(s) furosemide 2018-10 No 80 mg = 1 Me moria 80 mg oral 06 tab, PO, l tablet 20:48: TID, 0 [place] 00 Refill(s) acetaminoph 2018-10 Yes 1 tab, [...] l de 25 MG 20:48: TID, 0 [place] Oral Tablet 00 Refill(s) furosemide 2018-10 No 80 mg = 1 Me mor[place] 80 mg oral 10-14 tab, PO, l tablet 20:48: TID, 0 [place] 00 Refill(s) doxycycline Yes 100 mg = 1 [facility] hyclate 100 7-01 cap, PO, l MG Oral 20:19: Q12H, X 5 [place] 00 day, # 10 cap, 0 Refill(s), Pharmacy: [facility][id number] lisinopril Yes 20 mg = 1 Me mor[place] 20 mg oral 7-01 tab, PO, l tablet 20:19: Daily, # [place] 00 30 tab, 0 Refill(s), Pharmacy: [facility] #[id number] doxycycline Yes 100 mg = 1 [facility] hyclate 100 7-01 cap, PO, l MG Oral 20:19: Q12H, X 5 [place] 00 day, # 10 cap, 0 Refill(s), Pharmacy: [facility] #[id number] lisinopril Yes 20 mg = 1 [place] 20 mg oral 7-01 tab, PO, l tablet 20:19: Daily, # [place] 00 30 tab, 0 Refill(s), [facility]acy: [facility] [...] Dissolve l 14:36: in 8 oz of [place] 00 water or juice. (Same as: Miralax) Miralax No Notes: [facility]oria 7-01 Dissolve l 14:36: in 8 oz of [place] 00 water or juice. (Same as: Miralax) [...] Sodium 04-06 Route: l Chloride 22:00: IVPB, [place] 0.9% IV 250 00 [id number], mL Dosing Weight 102.273, kg, Start date: 04/06/19 17:00:00 CDT, Duration: 7 day, Stop date: 04/12/19 17:00:00 CDT, ABX Indication : Pneumonia, 0 Hydralazine No Notes: Kojo lynn - (Same as: l 22:00: Apresoline [place] ) May interfere w/enteral feedings Take With Food Lasix No Notes: Memoria 6-29 (Same as: l 22:00: Lasix) [place] May cause GI upset. Give with food or milk. Zithromax + No 500 mg, Mem oria Sodium 04-06 Route: l Chloride 22:00: IVPB, [place] 0.9% IV 250 00 [id number], mL Dosing Weight 102.273, kg, Start date: 04/06/19 17:00:00 CDT, Duration: 7 day, Stop date: 04/12/19 17:00:00 CDT, ABX Indication : Pneumonia, 0 Hydralazine No Notes: Kojo lynn 6-29 (Same as: l 22:00: Apresoline [place] ) May interfere w/enteral feedings Take With Food Lasix No Notes: Memoria 6-29 (Same as: l 22:00: Lasix) [place] May cause GI upset. Give with food or milk. Zithromax + No 500 mg, Mem oria Sodium 04-06 Route: l Chloride 22:00: IVPB, [place] 0.9% IV 250 00 [id number], mL Dosing Weight 102.273, kg, Start date: 04/06/19 17:00:00 CDT, Duration: 7 day, Stop date: 04/12/19 17:00:00 CDT, ABX Indication : Pneumonia, 0 Hydralazine No Notes: Kojo ylnn 6-29 (Same as: l 22:00: Apresoline [place] ) May interfere w/enteral feedings Take With [...] (Same as: l oral 19:00: Adalat CC, [place] tablet, 00 Procardia extended XL) Give release [...] (Same as: l oral 19:00: Adalat CC, [place] tablet, 00 Procardia extended XL) Give release on empty stomach. Take 1 hour before or 2 hours after meal; "Avoid grapefruit and grapefruit juice". Do not crush Alprazolam No Notes: Memor ia 2 MG Oral 6-29 With food l Tablet 18:22: or milk [place] [Xanax] 00 (Same as: Xanax) Alprazolam No Notes: Memor ia 2 MG Oral 6-29 With food l Tablet 18:22: or milk [place] [Xanax] 00 (Same as: Xanax) Alprazolam No Notes: Memor ia 2 MG Oral 6-29 With food l Tablet 18:22: or milk [place] [Xanax] 00 (Same as: Xanax) Hydralazine No Notes: Kojo lynn 6-29 (Same as: l 18:21: Apresoline [place] 00 ) Push over 5 minutes Hydralazine [...] 6-29 Route: PO, l 14:00: Drug form: [place] 00 TAB, Daily, Dosing Weight 100.17, kg, Start date: 04/06/19 9:00:00 CDT, Duration: 30 day, Stop date: 05/05/19 9:00:00 CDT Saline No Notes: Memoria Flush 0.9% 6-29 preservati l 14:00: ve free. heparin No Notes: Memoria 6-29 porcine l 14:00: heparin benazepril No 20 mg, Memor ia 6-29 Route: PO, l 14:00: Drug form: [place] 00 TAB, Daily, Dosing Weight 100.17, kg, Start date: 04/06/19 9:00:00 CDT, Duration: 30 day, Stop date: 05/05/19 9:00:00 CDT Saline No Notes: Memoria Flush 0.9% 6-29 preservati l 14:00: ve free. heparin No Notes: Memoria 6-29 porcine l 14:00: heparin lisinopril No Notes: Memor ia 6-29 (Same as: l 08:57: Prinivil, [place] 00 Zestril) lisinopril No Notes: Memor ia [...] ia 6-29 (Same as: l 08:56: Norvasc) [place] carvedilol No Notes: Memor ia 6-29 Give with l 04:30: food. [place] 00 (Same As: Coreg) Hydralazine No Notes: Kojo lynn 6-29 (Same as: l 04:30: Apresoline [place] ) May interfere w/enteral feedings Take With Food carvedilol No Notes: Memor ia 6-29 Give with l 04:30: food. [place] 00 (Same As: Coreg) Hydralazine No Notes: Kojo lynn 6-29 (Same as: l 04:30: Apresoline [place] ) May interfere w/enteral feedings Take With Food carvedilol No Notes: Memor ia 6-29 Give with l 04:30: food. [place] 00 (Same As: Coreg) Hydralazine No Notes: Kojo lynn 6-29 (Same as: l 04:30: Apresoline [place] ) May interfere w/enteral feedings Take With Food height No height Memoria weight 6-29 weight l allergies 04:00: allergies, [place] 00 Rn pls complete HWA for order filler, Drug form: MISC, Route: MISC, ONCALL, 04/05/19 23:00:00 CDT, Duration: 30 day, Stop date: 05/05/19 22:59:00 CDT, 0 height 2019-0 No height Memoria weight 6-29 weight l allergies 04:00: allergies, [place] 00 Rn pls complete HWA for order filler, Drug form: MISC, Route: MISCMOSHEALL, 04/05/19 23:00:00 CDT, Duration: 30 day, Stop date: 05/05/19 22:59:00 CDT, 0 height 2019-0 No height Memoria weight 6-29 weight l allergies 04:00: allergies, He rmdionne 00 Rn pls complete HWA for order filler, Drug form: MISC, Route: MISC ONCALL, 04/05/19 23:00:00 CDT, Duration: 30 day, Stop date: 05/05/19 22:59:00 CDT, 0 Aspirin 325 2019-0 No Notes: (Do Memoria MG Enteric 6-29 Not Crush) l Coated 03:00: Do not [place] Tablet 00 crush or chew. Zithromax 2019-0 No 500 mg, Memor ia 6-29 Route: l 03:00: IVPB, [place] 00 [id number], Dosing Weight 102.273, kg, Start date: 04/05/19 22:00:00 CDT, Duration: 7 day, Stop date: 04/11/19 22:00:00 CDT, ABX Indication : Pneumonia Ceftriaxone 2019-0 No 1 gm, Memor ia 6-29 Route: l 03:00: IVPB, [place] 00 [id number], Dosing Weight 102.273, kg, Start date: 04/05/19 22:00:00 CDT, Duration: 7 day, Stop date: 04/11/19 22:00:00 CDT, ABX Indication : Pneumonia Aspirin 325 2019-0 No Notes: (Do Mem[facility] MG Enteric 6-29 Not Crush) l Coated 03:00: Do not [place] Tablet 00 crush or chew. Zithromax 2019-0 No 500 mg, Memor ia 6-29 Route: l 03:00: IVPB, [place] 00 [id number], Dosing Weight 102.273, kg, Start date: 04/05/19 22:00:00 CDT, Duration: 7 day, Stop date: 04/11/19 22:00:00 CDT, ABX Indication : Pneumonia Ceftriaxone 2019-0 No 1 gm, Memor ia 6-29 Route: l 03:00: IVPB, [place] [id number], Dosing Weight 102.273, kg, Start date: 04/05/19 22:00:00 CDT, Duration: 7 day, Stop date: 04/11/19 22:00:00 CDT, ABX Indication : Pneumonia Aspirin 325 No Notes: (Do Memoria MG Enteric -29 Not Crush) l Coated 03:00: Do not [place] Tablet 00 crush or chew. Zithromax No 500 mg, Memor ia - Route: l 03:00: IVPB, [place] [id number], Dosing Weight 102.273, kg, Start date: 04/05/19 22:00:00 CDT, Duration: 7 day, Stop date: 04/11/19 22:00:00 CDT, ABX Indication : Pneumonia Ceftriaxone No 1 gm, Memor ia 04-06 Route: l 03:00: IVPB, [place] [id number], Dosing Weight 102.273, kg, Start date: 04/05/19 [...] a - (Same As: l 02:03: Dulcolax, [place] 00 Bisco-Lax) Ondansetron No Notes: Kojo lynn [...] 0.9% 6-29 preservati l 02:02: ve free. [place] 00 Acetaminoph No Notes: Do M emoria en -29 not exceed l 02:02: 4 gm/day. [place] 00 (Same as: Tylenol) Saline No Notes: Memoria Flush 0.9% 6-29 preservati l 02:02: ve free. [place] 00 Acetaminoph No Notes: Do M emoria en 6-29 not exceed l 02:02: 4 gm/day. [place] 00 (Same as: Tylenol) Saline No Notes: Memoria Flush 0.9% 6-29 preservati l 02:02: ve free. [place] 00 Acetaminoph No Notes: Do M emoria en -29 not exceed l 02:02: 4 gm/day. [place] 00 (Same as: Tylenol) Hydromorpho No Notes: [...] mouth ity of hr capsule 19:24: daily. [place] [address] Medical Branch zolpidem 10 Yes 10mg Take 10 mg [facility] mg tablet 5-02 by mouth ity of 19:24: at bedtime [place] [address] as needed Medical for Branch Insomnia. diazePAM Yes 5mg Take 5 mg Univ ers (VALIUM) 5 5-02 by mouth ity o f mg tablet 19:24: at [place] [address] bedtime. Medical Branch amlodipine 2018- Yes 1{tbl} Take 1 Uni vers besylate/be 5-02 tablet by ity of nazepril 19:24: mouth 3 [place] (AMLODIPINE 36 (three) Medic al -BENAZEPRIL times Branch ORAL) daily. carvedilol Yes 6.25mg Take 6.25 [facility] 6.25 mg 5-02 mg by ity of tablet 19:24: mouth 2 [place] [address] (two) Medical times Branch daily with meals. furosemide Yes 80mg Take 80 mg U nivers (LASIX) 80 5-02 by mouth 3 ity of mg tablet 19:24: (three) [place] [address] times Medical daily. Branch hydralAZINE Yes 50mg Take 50 mg [facility] 50 mg 5-02 by mouth ity of tablet 19:24: every 8 [place] [address] (eight) Medical hours. Branch calcium Yes 2001mg Take 2,001 Un seun acetate 667 5-02 mg by ity of mg capsule 19:24: mouth 3 [facility] 36 (three) Medical times Branch daily with meals. vitamin b 2019- Yes 1{tbl} Take 1 Univ ers complex-vit 5-02 tablet by ity of villatoro 19:24: mouth [place] c-folic 36 daily. Medical acid Branch (FAUZIA-CONOR) 0.8 mg tablet tamsulosin 2018- Yes Take by Uni vers 0.4 mg 24 5-02 mouth ity of hr capsule 19:24: daily. [place] [address] Medical Branch zolpidem 10 Yes 10mg Take 10 mg [facility] mg tablet 5-02 by mouth ity of 19:24: at bedtime [place] [address] as needed Medical for Branch Insomnia. diazePAM 2018- Yes 5mg Take 5 mg Univ ers (VALIUM) 5 5-02 by mouth ity o f mg tablet 19:24: at [place] [address] bedtime. Medical Branch amlodipine 2019- Yes 1{tbl} [...] 3 ity of mg tablet 19:24: (three) [place] [address] times Medical daily. Branch hydralAZINE 0 Yes 50mg Take 50 mg [facility] 50 mg 5-02 by mouth ity of tablet 19:24: every 8 [place] [address] (eight) Medical hours. Branch calcium Yes 2001mg Take 2,001 Un seun acetate 667 5-02 mg by ity of mg capsule 19:24: mouth 3 [facility] 36 (three) Medical times Branch daily with meals. vitamin b 2019- Yes 1{tbl} Take 1 Univ ers complex-vit 5-02 tablet by ity of villatoro 19:24: mouth [place] c-folic daily. Medical acid Branch (FAUZIA-CONOR) 0.8 mg tablet tamsulosin 2018-0 Yes Take by Uni vers 0.4 mg 24 5-02 mouth ity of hr capsule 19:24: daily. [place] [address] Medical Branch zolpidem 10 2018-0 Yes 10mg Take 10 mg [facility] mg tablet 5-02 by mouth ity of 19:24: at bedtime [place] [address] as needed Medical for Branch Insomnia. diazePAM 2019-0 Yes 5mg Take 5 mg Univ ers (VALIUM) 5 5-02 by mouth ity o f mg tablet 19:24: at [place] [address] bedtime. Medical Branch amlodipine 2019-0 Yes 1{tbl} [...] 3 ity of mg tablet 19:24: (three) [place] [address] times Medical daily. Branch hydralAZINE 2018-0 Yes 50mg Take 50 mg [facility] 50 mg 5-02 by mouth ity of tablet 19:24: every 8 [place] [address] (eight) Medical hours. Branch calcium 2019-0 Yes [...] mouth ity of hr capsule 19:24: daily. [place] [address] Medical Branch zolpidem 10 2018-0 Yes 10mg Take 10 mg [facility] mg tablet 5-02 by mouth ity of 19:24: at bedtime [place] [address] as needed Medical for Branch Insomnia. diazePAM 2019-0 Yes 5mg Take 5 mg Univ ers (VALIUM) 5 5-02 by mouth ity o f mg tablet 19:24: at [place] [address] bedtime. Medical Branch amlodipine 2019-0 Yes 1{tbl} Take 1 Uni vers besylate/be 5-02 tablet by ity of nazepril 19:24: mouth 3 [place] (AMLODIPINE 36 (three) Medic al -BENAZEPRIL times Branch ORAL) daily. carvedilol 2019-0 Yes 6.25mg Take 6.25 Univers 6.25 mg 5-02 mg by ity of tablet 19:24: mouth 2 [place] 36 (two) Medical times Branch daily with meals. furosemide 2019-0 Yes 80mg Take 80 mg U nivers (LASIX) 80 5-02 by mouth 3 ity of mg tablet 19:24: (three) [place] [address] times Medical daily. Branch hydralAZINE 2019-0 Yes [...] mouth ity of hr capsule 19:24: daily. [place] [address] Medical Branch zolpidem 10 2018-0 Yes 10mg Take 10 mg [facility] mg tablet 5-02 by mouth ity of 19:24: at bedtime [place] as needed Medical for Branch Insomnia. diazePAM 2018-0 Yes 5mg Take 5 mg Univ ers (VALIUM) 5 5-02 by mouth ity o f mg tablet 19:24: at [place] [address] bedtime. Medical Branch amlodipine 2018- Yes 1{tbl} [...] 3 ity of mg tablet 19:24: (three) [place] [address] times Medical daily. Branch hydralAZINE 2019-0 Yes 50mg Take 50 mg [facility] 50 mg 5-02 by mouth ity of tablet 19:24: every 8 [place] [address] (eight) Medical hours. Branch calcium 2019-0 Yes 2001mg Take 2,001 Un seun acetate 667 5-02 mg by ity of mg capsule 19:24: mouth [place] (three) Medical times Branch daily with meals. vitamin b 2019- Yes 1{tbl} Take 1 Univ ers complex-vit 5-02 tablet by ity of villatoro 19:24: mouth [place] c-folic 36 daily. Medical acid Branch (FAUZIA-CONOR) 0.8 mg tablet tamsulosin 2018- Yes Take by Uni vers 0.4 mg 24 5-02 mouth ity of hr capsule 19:24: daily. [place] [address] Medical Branch zolpidem 10 Yes 10mg Take 10 mg [facility] mg tablet 5-02 by mouth ity of 19:24: at bedtime [place] [address] as needed Medical for Branch Insomnia. diazePAM Yes 5mg Take 5 mg Univ ers (VALIUM) 5 5-02 by mouth ity o f mg tablet 19:24: at [place] [address] bedtime. Medical Branch amlodipine 2018- Yes 1{tbl} Take 1 Uni vers besylate/be 5-02 tablet by ity of nazepril 19:24: mouth 3 [place] (AMLODIPINE 36 (three) Medic al -BENAZEPRIL times Branch ORAL) daily. carvedilol Yes 6.25mg Take 6.25 Univers 6.25 mg 5-02 mg by ity of tablet 19:24: mouth 2 [place] [address] (two) Medical times Branch daily with meals. furosemide Yes 80mg Take 80 mg U nivers (LASIX) 80 5-02 by mouth 3 ity of mg tablet 19:24: (three) [place] [address] times Medical daily. Branch hydralAZINE Yes 50mg Take 50 mg [facility] 50 mg 5-02 by mouth ity of tablet 19:24: every 8 [place] [address] (eight) Medical hours. Branch calcium 2018- Yes 2001mg Take 2,001 Un seun acetate 667 5-02 mg by ity of mg capsule 19:24: mouth 3 [facility] 36 (three) Medical times Branch daily with meals. vitamin b 2019- Yes 1{tbl} Take 1 Univ ers complex-vit 5-02 tablet by ity of villatoro 19:24: mouth [place] c-folic 36 daily. Medical acid Branch (FAUZIA-CONOR) 0.8 mg tablet tamsulosin 2018- Yes Take by Uni vers 0.4 mg 24 5-02 mouth ity of hr capsule 19:24: daily. [place] [address] Medical Branch zolpidem 10 Yes 10mg Take 10 mg [facility] mg tablet 5-02 by mouth ity of 19:24: at bedtime [place] [address] as needed Medical for Branch Insomnia. diazePAM 2019-0 Yes 5mg Take 5 mg Univ ers (VALIUM) 5 5-02 by mouth ity o f mg tablet 19:24: at [place] [address] bedtime. Medical Branch amlodipine 2019-0 Yes 1{tbl} Take 1 Uni vers besylate/be 5-02 tablet by ity of nazepril 19:24: mouth 3 [place] (AMLODIPINE 36 (three) Medic al -BENAZEPRIL times Branch ORAL) daily. carvedilol 2019-0 Yes 6.25mg Take 6.25 Univers 6.25 mg 5-02 mg by ity of tablet 19:24: mouth 2 [place] [address] (two) Medical times Branch daily with meals. furosemide 2019-0 Yes 80mg Take 80 mg U nivers (LASIX) 80 5-02 by mouth 3 ity of mg tablet 19:24: (three) [place] [address] times Medical daily. Branch hydralAZINE 2019-0 Yes 50mg Take 50 mg [facility] 50 mg 5-02 by mouth ity of tablet 19:24: every 8 [place] [address] (eight) Medical hours. Branch calcium 2019-0 Yes 2001mg Take 2,001 Un seun acetate 667 5-02 mg by ity of mg capsule 19:24: mouth 3 [place] [address] (three) Medical times Branch daily with meals. vitamin b 2019-0 Yes 1{tbl} Take 1 Univ ers complex-vit 5-02 tablet by ity of villatoro 19:24: mouth [place] c-folic daily. Medical acid Branch (FAUZIA-CONOR) 0.8 mg tablet tamsulosin 2019-0 Yes Take by Uni vers 0.4 mg 24 5-02 mouth ity of hr capsule 19:24: daily. [place] [address] Medical Branch zolpidem 10 2019-0 Yes 10mg Take 10 mg [facility] mg tablet 5-02 by mouth ity of 19:24: at bedtime [place] [address] as needed Medical for Branch Insomnia. diazePAM 2019-0 Yes 5mg Take 5 mg Univ ers (VALIUM) 5 5-02 by mouth ity o f mg tablet 19:24: at [place] [address] bedtime. Medical Branch amlodipine 2019-0 Yes 1{tbl} Take 1 Uni vers besylate/be 5-02 tablet by ity of nazepril 19:24: mouth 3 [place] (AMLODIPINE 36 (three) Medic al -BENAZEPRIL times Branch ORAL) daily. carvedilol 2019-0 Yes 6.25mg Take 6.25 Univers 6.25 mg 5-02 mg by ity of tablet 19:24: mouth 2 [place] [address] (two) Medical times Branch daily with meals. furosemide 2019-0 Yes 80mg Take 80 mg U nivers (LASIX) 80 5-02 by mouth 3 ity of mg tablet 19:24: (three) [place] [address] times Medical daily. Branch hydralAZINE 2019-0 Yes 50mg Take 50 mg Univers 50 mg 5-02 by mouth ity of tablet 19:24: every 8 [place] [address] (eight) Medical hours. Branch calcium 2019-0 Yes 2001mg Take 2,001 Un seun acetate 667 5-02 mg by ity of mg capsule 19:24: mouth 3 [facility] 36 (three) Medical times Branch daily with meals. vitamin b 2018- Yes 1{tbl} Take 1 Univ ers complex-vit 5-02 tablet by ity of villatoro 19:24: mouth [place] cfolic daily. Medical acid Branch (FAUZIA-CONOR) 0.8 mg tablet tamsulosin 2018-0 Yes Take by Uni vers 0.4 mg 24 5-02 mouth ity of hr capsule 19:24: daily. [place] [address] Medical Branch zolpidem 10 2018-0 Yes 10mg Take 10 mg [facility] mg tablet 5-02 by mouth ity of 19:24: at bedtime [place] [address] as needed Medical for Branch Insomnia. diazePAM 2018- Yes 5mg Take 5 mg Univ ers (VALIUM) 5 5-02 by mouth ity o f mg tablet 19:24: at [place] [address] bedtime. Medical Branch amlodipine 2019-0 Yes 1{tbl} Take 1 Uni vers besylate/be 5-02 tablet by ity of nazepril 19:24: mouth 3 [place] (AMLODIPINE 36 (three) Medic al -BENAZEPRIL times Branch ORAL) daily. carvedilol 2019-0 Yes 6.25mg Take 6.25 Univers 6.25 mg 5-02 mg by ity of tablet 19:24: mouth 2 [place] [address] (two) Medical times Branch daily with meals. furosemide 2018-0 Yes 80mg Take 80 mg U nivers (LASIX) 80 5-02 by mouth 3 ity of mg tablet 19:24: (three) [place] 36 times Medical daily. Branch hydralAZINE 2019-0 Yes 50mg Take 50 mg Univers 50 mg 5-02 by mouth ity of tablet 19:24: every 8 [place] [address] (eight) Medical hours. Branch calcium 2019-0 Yes [...] mouth ity of hr capsule 19:24: daily. [place] [address] Medical Branch zolpidem 10 2019-0 Yes 10mg Take 10 mg [facility] mg tablet 5-02 by mouth ity of 19:24: at bedtime [place] [address] as needed Medical for Branch Insomnia. diazePAM 2019-0 Yes 5mg Take 5 mg Univ ers (VALIUM) 5 5-02 by mouth ity o f mg tablet 19:24: at [place] [address] bedtime. Medical Branch amlodipine 2019-0 Yes 1{tbl} [...] 3 ity of mg tablet 19:24: (three) [place] [address] times Medical daily. Branch hydralAZINE 2019-0 Yes 50mg Take 50 mg [facility] 50 mg 5-02 by mouth ity of tablet 19:24: every 8 [place] 36 (eight) Medical hours. Branch calcium 2019-0 Yes 2001mg Take 2,001 Un seun acetate 667 5-02 mg by ity of mg capsule 19:24: mouth 3 [place] (three) Medical times Branch daily with meals. vitamin b 2019- Yes 1{tbl} Take 1 Univ ers complex-vit 5-02 tablet by ity of villatoro 19:24: mouth [place] c-folic 36 daily. Medical acid Branch (FAUZIA-CONOR) 0.8 mg tablet tamsulosin 2018-0 Yes Take by Uni vers 0.4 mg 24 5-02 mouth ity of hr capsule 19:24: daily. [place] [address] Medical Branch zolpidem 10 2018-0 Yes 10mg Take 10 mg [facility] mg tablet 5-02 by mouth ity of 19:24: at bedtime [place] [address] as needed Medical for Branch Insomnia. diazePAM 2019-0 Yes 5mg Take 5 mg Univ ers (VALIUM) 5 5-02 by mouth ity o f mg tablet 19:24: at [place] [address] bedtime. Medical Branch amlodipine 2018-0 Yes 1{tbl} Take 1 Uni vers besylate/be 5-02 tablet by ity of nazepril 19:24: mouth 3 [place] (AMLODIPINE 36 (three) Medic al -BENAZEPRIL times Branch ORAL) daily. carvedilol 2019-0 Yes 6.25mg Take 6.25 Univers 6.25 mg 5-02 mg by ity of tablet 19:24: mouth 2 [place] [address] (two) Medical times Branch daily with meals. furosemide 2019-0 Yes 80mg Take 80 mg U nivers (LASIX) 80 5-02 by mouth 3 ity of mg tablet 19:24: (three) [place] [address] times Medical daily. Branch hydralAZINE 2018-0 Yes 50mg Take 50 mg Univers 50 mg 5-02 by mouth ity of tablet 19:24: every 8 [place] [address] (eight) Medical hours. Branch calcium 2019-0 Yes 2001mg Take 2,001 Un seun acetate 667 5-02 mg by ity of mg capsule 19:24: mouth 3 [facility] 36 (three) Medical times Branch daily with meals. vitamin b 2019-0 Yes 1{tbl} Take 1 Univ ers complex-vit 5-02 tablet by ity of villatoro 19:24: mouth [facility] 36 daily. Medical acid Branch (FAUZIA-CONOR) 0.8 mg tablet tamsulosin 2018-0 Yes Take by Uni vers 0.4 mg 24 5-02 mouth ity of hr capsule 19:24: daily. [place] [address] Medical Branch zolpidem 10 Yes 10mg Take 10 mg [facility] mg tablet 5-02 by mouth ity of 19:24: at bedtime [place] [address] as needed Medical for Branch Insomnia. diazePAM 2019-0 Yes 5mg Take 5 mg Univ ers (VALIUM) 5 5-02 by mouth ity o f mg tablet 19:24: at [place] [address] bedtime. Medical Branch amlodipine 2019- Yes 1{tbl} Take 1 Uni vers besylate/be 5-02 tablet by ity of nazepril 19:24: mouth 3 [place] (AMLODIPINE 36 (three) Medic al -BENAZEPRIL times Branch ORAL) daily. carvedilol 2018-0 Yes 6.25mg Take 6.25 Univers 6.25 mg 5-02 mg by ity of tablet 19:24: mouth 2 [place] [address] (two) Medical times Branch daily with meals. furosemide Yes 80mg Take 80 mg U nivers (LASIX) 80 5-02 by mouth 3 ity of mg tablet 19:24: (three) [place] [address] times Medical daily. Branch hydralAZINE Yes 50mg Take 50 mg [facility] 50 mg 5-02 by mouth ity of tablet 19:24: every 8 [place] [address] (eight) Medical hours. Branch calcium 2019-0 Yes 2001mg Take 2,001 Un seun acetate 667 5-02 mg by ity of mg capsule 19:24: mouth 3 [facility] 36 (three) Medical times Branch daily with meals. vitamin b 2019- Yes 1{tbl} Take 1 Univ ers complex-vit 5-02 tablet by ity of villatoro 19:24: mouth [place] c-folic daily. Medical acid Branch (FAUZIA-CONOR) 0.8 mg tablet tamsulosin 2019-0 Yes Take by Uni vers 0.4 mg 24 5-02 mouth ity of hr capsule 19:24: daily. [place] [address] Medical Branch zolpidem 10 0 Yes 10mg Take 10 mg [facility] mg tablet 5-02 by mouth ity of 19:24: at bedtime [place] [address] as needed Medical for Branch Insomnia. diazePAM 2019-0 Yes 5mg Take 5 mg Univ ers (VALIUM) 5 5-02 by mouth ity o f mg tablet 19:24: at [place] [address] bedtime. Medical Branch amlodipine 2019-0 Yes 1{tbl} Take 1 Uni vers besylate/be 5-02 tablet by ity of nazepril 19:24: mouth 3 [place] (AMLODIPINE 36 (three) Medic al -BENAZEPRIL times Branch ORAL) daily. carvedilol 2019-0 Yes 6.25mg Take 6.25 Univers 6.25 mg 5-02 mg by ity of tablet 19:24: mouth 2 [place] [address] (two) Medical times Branch daily with meals. furosemide 2019-0 Yes 80mg Take 80 mg U nivers (LASIX) 80 5-02 by mouth 3 ity of mg tablet 19:24: (three) [place] [address] times Medical daily. Branch hydralAZINE 2019-0 Yes 50mg Take 50 mg Univers 50 mg 5-02 by mouth ity of tablet 19:24: every 8 [place] [address] (eight) Medical hours. Branch calcium 2019-0 Yes 2001mg Take 2,001 Un seun acetate 667 5-02 mg by ity of mg capsule 19:24: mouth 3 [facility] (three) Medical times Branch daily with meals. vitamin b 2018-0 Yes 1{tbl} Take 1 Univ ers complex-vit 5-02 tablet by ity of villatoro 19:24: mouth [place] c-folic daily. Medical acid Branch (FAUZIA-CONOR) 0.8 mg tablet tamsulosin 2018-0 Yes Take by Uni vers 0.4 mg 24 5-02 mouth ity of hr capsule 19:24: daily. [place] [address] Medical Branch zolpidem 10 2019-0 Yes 10mg Take 10 mg [facility] mg tablet 5-02 by mouth ity of 19:24: at bedtime [place] [address] as needed Medical for Branch Insomnia. diazePAM 2019-0 Yes 5mg Take 5 mg Univ ers (VALIUM) 5 5-02 by mouth ity o f mg tablet 19:24: at [place] [address] bedtime. Medical Branch amlodipine 2019-0 Yes 1{tbl} Take 1 Uni vers besylate/be 5-02 tablet by ity of nazepril 19:24: mouth 3 [place] (AMLODIPINE 36 (three) Medic al -BENAZEPRIL times Branch ORAL) daily. carvedilol 2019-0 Yes 6.25mg Take 6.25 Univers 6.25 mg 5-02 mg by ity of tablet 19:24: mouth 2 [place] [address] (two) Medical times Branch daily with meals. furosemide 2019-0 Yes 80mg Take 80 mg U nivers (LASIX) 80 5-02 by mouth 3 ity of mg tablet 19:24: (three) [place] [address] times Medical daily. Branch hydralAZINE 2019-0 Yes 50mg Take 50 mg [facility] 50 mg 5-02 by mouth ity of tablet 19:24: every 8 [place] [address] (eight) Medical hours. Branch calcium 2019-0 Yes [...] mouth ity of hr capsule 19:24: daily. [place] [address] Medical Branch zolpidem 10 2018-0 Yes 10mg Take 10 mg [facility] mg tablet 5-02 by mouth ity of 19:24: at bedtime [place] [address] as needed Medical for Branch Insomnia. diazePAM 2019-0 Yes 5mg Take 5 mg Univ ers (VALIUM) 5 5-02 by mouth ity o f mg tablet 19:24: at [place] [address] bedtime. Medical Branch amlodipine 2019-0 Yes 1{tbl} Take 1 Uni vers besylate/be 5-02 tablet by ity of nazepril 19:24: mouth 3 [place] (AMLODIPINE 36 (three) Medic al -BENAZEPRIL times Branch ORAL) daily. carvedilol 2019-0 Yes 6.25mg Take 6.25 Univers 6.25 mg 5-02 mg by ity of tablet 19:24: mouth 2 [place] 36 (two) Medical times Branch daily with meals. furosemide 2019-0 Yes 80mg Take 80 mg U nivers (LASIX) 80 5-02 by mouth 3 ity of mg tablet 19:24: (three) [place] [address] times Medical daily. Branch hydralAZINE 2019-0 Yes 50mg Take 50 mg Univers 50 mg 5-02 by mouth ity of tablet 19:24: every 8 [place] [address] (eight) Medical hours. Branch calcium 2019-0 Yes 2001mg Take 2,001 Un seun acetate 667 5-02 mg by ity of mg capsule 19:24: mouth 3 [place] (three) Medical times Branch daily with meals. vitamin b 2019-0 Yes 1{tbl} Take 1 Univ ers complex-vit 5-02 tablet by ity of villatoro 19:24: mouth [place] c-folic 36 daily. Medical acid Branch (FAUZIA-CONOR) 0.8 mg tablet tamsulosin 2018-0 Yes Take by [facility] 0.4 mg 24 5-02 mouth ity of hr capsule 19:24: daily. [place] [address] Medical Branch zolpidem 10 2018-0 Yes 10mg Take 10 mg [facility] mg tablet 5-02 by mouth ity of 19:24: at bedtime [place] [address] as needed Medical for Branch Insomnia. diazePAM 2018-0 Yes 5mg Take 5 mg [facility] ers (VALIUM) 5 5-02 by mouth ity o f mg tablet 19:24: at [place] [address] bedtime. Medical Branch amlodipine 2018-0 Yes 1{tbl} [...] 3 ity of mg tablet 19:24: (three) [place] [address] times Medical daily. Branch hydralAZINE 2018-0 Yes 50mg Take 50 mg [facility] 50 mg 5-02 by mouth ity of tablet 19:24: every 8 [place] [address] (eight) Medical hours. Branch calcium 2019-0 Yes 2001mg Take 2,001 Un seun acetate 667 5-02 mg by ity of mg capsule 19:24: mouth 3 [facility] (three) Medical times Branch daily with meals. vitamin b 2019-0 Yes 1{tbl} Take 1 [facility] ers complex-vit 5-02 tablet by ity of villatoro 19:24: mouth [place] c-folic 36 daily. Medical acid Branch (FAUZIA-CONOR) 0.8 mg tablet tamsulosin Yes Take by [facility] vers 0.4 mg 24 5-02 mouth ity of hr capsule 19:24: daily. [place] [address] Medical Branch zolpidem 10 Yes 10mg Take 10 mg [facility] mg tablet 5-02 by mouth ity of 19:24: at bedtime [place] [address] as needed Medical for Branch Insomnia. diazePAM Yes 5mg Take 5 mg [facility] ers (VALIUM) 5 5-02 by mouth ity o f mg tablet 19:24: at [place] [address] bedtime. Medical Branch amlodipine 2018- Yes 1{tbl} Take 1 [facility] vers besylate/be 5-02 tablet by ity of nazepril 19:24: mouth 3 [place] (AMLODIPINE 36 (three) Medic al -BENAZEPRIL times Branch ORAL) daily. carvedilol Yes 6.25mg Take 6.25 [facility] 6.25 mg 5-02 mg by ity of tablet 19:24: mouth 2 [place] [address] (two) Medical times Branch daily with meals. furosemide Yes 80mg Take 80 mg [facility] n[facility] (LASIX) 80 5-02 by mouth 3 ity of mg tablet 19:24: (three) [place] [address] times Medical daily. Branch hydralAZINE Yes 50mg Take 50 mg [facility] 50 mg 5-02 by mouth ity of tablet 19:24: every 8 [place] [address] (eight) Medical hours. Branch calcium Yes 2001mg Take 2,001 Un seun acetate 667 5-02 mg by ity of mg capsule 19:24: mouth 3 [facility] (three) Medical times Branch daily with meals. vitamin b Yes 1{tbl} Take 1 [facility] ers complex-vit 5-02 tablet by ity of villatoro 19:24: mouth [place] c-folic 36 daily. Medical acid Branch (FAUZIA-CONOR) 0.8 mg tablet tamsulosin Yes Take by [facility] vers 0.4 mg 24 5-02 mouth ity of hr capsule 19:24: daily. [place] [address] Medical Branch zolpidem 10 Yes 10mg Take 10 mg [facility] mg tablet 5-02 by mouth ity of 19:24: at bedtime [place] [address] as needed Medical for Branch Insomnia. diazePAM Yes 5mg Take 5 mg [facility] ers (VALIUM) 5 5-02 by mouth ity o f mg tablet 19:24: at [place] [address] bedtime. Medical Branch amlodipine 2019-0 Yes 1{tbl} Take 1 [facility] vers besylate/be 5-02 tablet by ity of nazepril 19:24: mouth 3 [place] (AMLODIPINE 36 (three) Medic al -BENAZEPRIL times Branch ORAL) daily. carvedilol 2019-0 Yes 6.25mg Take 6.25 [facility] 6.25 mg 5-02 mg by ity of tablet 19:24: mouth 2 [place] [address] (two) Medical times Branch daily with meals. furosemide 2019-0 Yes 80mg Take 80 mg [facility] nivers (LASIX) 80 5-02 by mouth 3 ity of mg tablet 19:24: (three) [place] [address] times Medical daily. Branch hydralAZINE 2018-0 Yes 50mg Take 50 mg [facility] 50 mg 5-02 by mouth ity of tablet 19:24: every 8 [place] [address] (eight) Medical hours. Branch calcium 2019-0 Yes 2001mg Take 2,001 Un seun acetate 667 5-02 mg by ity of mg capsule 19:24: mouth 3 [facility] 36 (three) Medical times Branch daily with meals. vitamin b 2019-0 Yes 1{tbl} Take 1 [facility] ers complex-vit 5-02 tablet by ity of villatoro 19:24: mouth [place] c-folic daily. Medical acid Branch (FAUZIA-CONOR) 0.8 mg tablet tamsulosin 2018-0 Yes Take by [facility] vers 0.4 mg 24 5-02 mouth ity of hr capsule 19:24: daily. [place] [address] Medical Branch zolpidem 10 2019-0 Yes 10mg Take 10 mg [facility] mg tablet 5-02 by mouth ity of 19:24: at bedtime [place] [address] as needed Medical for Branch Insomnia. diazePAM 2019-0 Yes 5mg Take 5 mg [facility] ers (VALIUM) 5 5-02 by mouth ity o f mg tablet 19:24: at [place] [address] bedtime. Medical Branch amlodipine 2019-0 Yes 1{tbl} Take 1 [facility] vers besylate/be 5-02 tablet by ity of nazepril 19:24: mouth 3 [place] (AMLODIPINE 36 (three) Medic al -BENAZEPRIL times Branch ORAL) daily. carvedilol 2019-0 Yes 6.25mg Take 6.25 [facility] 6.25 mg 5-02 mg by ity of tablet 19:24: mouth 2 [place] [address] (two) Medical times Branch daily with meals. furosemide 2019-0 Yes 80mg Take 80 mg [facility] nivers (LASIX) 80 5-02 by mouth 3 ity of mg tablet 19:24: (three) [place] [address] times Medical daily. Branch hydralAZINE 2019-0 Yes 50mg Take 50 mg [facility] 50 mg 5-02 by mouth ity of tablet 19:24: every 8 [place] [address] (eight) Medical hours. Branch calcium 2019-0 Yes 2001mg Take 2,001 Un seun acetate 667 5-02 mg by ity of mg capsule 19:24: mouth 3 [facility] (three) Medical times Branch daily with meals. vitamin b 2019-0 Yes 1{tbl} Take 1 [facility] ers complex-vit 5-02 tablet by ity of villatoro 19:24: mouth [place] c-folic 36 daily. Medical acid Branch (FAUZIA-CONOR) 0.8 mg tablet tamsulosin 2019-0 Yes Take by [facility] vers 0.4 mg 24 5-02 mouth ity of hr capsule 19:24: daily. [place] [address] Medical Branch zolpidem 10 2019-0 Yes 10mg Take 10 mg [facility] mg tablet 5-02 by mouth ity of 19:24: at bedtime [place] [address] as needed Medical for Branch Insomnia. diazePAM 2019-0 Yes 5mg Take 5 mg [facility] ers (VALIUM) 5 5-02 by mouth ity o f mg tablet 19:24: at [place] [address] bedtime. Medical Branch amlodipine 2019-0 Yes 1{tbl} Take 1 [facility] vers besylate/be 5-02 tablet by ity of nazepril 19:24: mouth 3 [place] (AMLODIPINE 36 (three) Medic al -BENAZEPRIL times Branch ORAL) daily. carvedilol 2019-0 Yes 6.25mg Take 6.25 [facility] 6.25 mg 5-02 mg by ity of tablet 19:24: mouth 2 [place] [address] (two) Medical times Branch daily with meals. furosemide 2019-0 Yes 80mg Take 80 mg U nivers (LASIX) 80 5-02 by mouth 3 ity of mg tablet 19:24: (three) [place] [address] times Medical daily. Branch hydralAZINE 2019-0 Yes [...] mouth ity of hr capsule 19:24: daily. [place] [address] Medical Branch zolpidem 10 2019-0 Yes 10mg Take 10 mg [facility] mg tablet 5-02 by mouth ity of 19:24: at bedtime [place] as needed Medical for Branch Insomnia. diazePAM 2019-0 Yes 5mg Take 5 mg [facility] ers (VALIUM) 5 5-02 by mouth ity o f mg tablet 19:24: at [place] [address] bedtime. Medical Branch amlodipine 2019-0 Yes 1{tbl} [...] 3 ity of mg tablet 19:24: (three) [place] [address] times Medical daily. Branch hydralAZINE 2019-0 Yes 50mg Take 50 mg [facility] 50 mg 5-02 by mouth ity of tablet 19:24: every 8 [place] [address] (eight) Medical hours. Branch calcium 2019-0 Yes 2001mg Take 2,001 Un seun acetate 667 5-02 mg by ity of mg capsule 19:24: mouth [place] (three) Medical times Branch daily with meals. vitamin b 2019-0 Yes 1{tbl} Take 1 [facility] ers complex-vit 5-02 tablet by ity of villatoro 19:24: mouth [place] c-folic 36 daily. Medical acid Branch (FAUZIA-CONOR) 0.8 mg tablet tamsulosin 2018- Yes Take by [facility] vers 0.4 mg 24 5-02 mouth ity of hr capsule 19:24: daily. [place] [address] Medical Branch zolpidem 10 Yes 10mg Take 10 mg [facility] mg tablet 5-02 by mouth ity of 19:24: at bedtime [place] [address] as needed Medical for Branch Insomnia. diazePAM Yes 5mg Take 5 mg [facility] ers (VALIUM) 5 5-02 by mouth ity o f mg tablet 19:24: at [place] [address] bedtime. Medical Branch amlodipine 2018- Yes 1{tbl} Take 1 Uni vers besylate/be 5-02 tablet by ity of nazepril 19:24: mouth 3 [place] (AMLODIPINE 36 (three) Medic al -BENAZEPRIL times Branch ORAL) daily. carvedilol 2018- Yes 6.25mg Take 6.25 [facility] 6.25 mg 5-02 mg by ity of tablet 19:24: mouth 2 [place] [address] (two) Medical times Branch daily with meals. furosemide 2018- Yes 80mg Take 80 mg U nivers (LASIX) 80 5-02 by mouth 3 ity of mg tablet 19:24: (three) [place] [address] times Medical daily. Branch hydralAZINE 2018-0 Yes 50mg Take 50 mg [facility] 50 mg 5-02 by mouth ity of tablet 19:24: every 8 [place] [address] (eight) Medical hours. Branch calcium 2018- Yes 2001mg Take 2,001 Un seun acetate 667 5-02 mg by ity of mg capsule 19:24: mouth 3 [facility] (three) Medical times Branch daily with meals. vitamin b 2019- Yes 1{tbl} Take 1 [facility] ers complex-vit 5-02 tablet by ity of villatoro 19:24: mouth [place] c-folic 36 daily. Medical acid Branch (FAUZIA-CONOR) 0.8 mg tablet tamsulosin 2018-0 Yes Take by [facility] vers 0.4 mg 24 5-02 mouth ity of hr capsule 19:24: daily. [place] [address] Medical Branch zolpidem 10 Yes 10mg Take 10 mg [facility] mg tablet 5-02 by mouth ity of 19:24: at bedtime [place] [address] as needed Medical for Branch Insomnia. diazePAM 2019-0 Yes 5mg Take 5 mg [facility] ers (VALIUM) 5 5-02 by mouth ity o f mg tablet 19:24: at [place] [address] bedtime. Medical Branch amlodipine 2019-0 Yes 1{tbl} Take 1 Uni vers besylate/be 5-02 tablet by ity of nazepril 19:24: mouth 3 [place] (AMLODIPINE 36 (three) Medic al -BENAZEPRIL times Branch ORAL) daily. carvedilol 2019-0 Yes 6.25mg Take 6.25 [facility] 6.25 mg 5-02 mg by ity of tablet 19:24: mouth 2 [place] [address] (two) Medical times Branch daily with meals. furosemide 2019-0 Yes 80mg Take 80 mg U nivers (LASIX) 80 5-02 by mouth 3 ity of mg tablet 19:24: (three) [place] [address] times Medical daily. Branch hydralAZINE 2018-0 Yes 50mg Take 50 mg [facility] 50 mg 5-02 by mouth ity of tablet 19:24: every 8 [place] [address] (eight) Medical hours. Branch calcium 2019-0 Yes 2001mg Take 2,001 Un seun acetate 667 5-02 mg by ity of mg capsule 19:24: mouth 3 [place] [address] (three) Medical times Branch daily with meals. vitamin b 2019-0 Yes 1{tbl} Take 1 Univ ers complex-vit 5-02 tablet by ity of villatoro 19:24: mouth [place] c-folic daily. Medical acid Branch (FAUZIA-CONOR) 0.8 mg tablet tamsulosin 2019-0 Yes Take by [facility] vers 0.4 mg 24 5-02 mouth ity of hr capsule 19:24: daily. [place] [address] Medical Branch zolpidem 10 2019-0 Yes 10mg Take 10 mg [facility] mg tablet 5-02 by mouth ity of 19:24: at bedtime [place] [address] as needed Medical for Branch Insomnia. diazePAM 2019-0 Yes 5mg Take 5 mg [facility] ers (VALIUM) 5 5-02 by mouth ity o f mg tablet 19:24: at [place] [address] bedtime. Medical Branch amlodipine 2019-0 Yes 1{tbl} Take 1 Uni vers besylate/be 5-02 tablet by ity of nazepril 19:24: mouth 3 [place] (AMLODIPINE 36 (three) Medic al -BENAZEPRIL times Branch ORAL) daily. carvedilol 2019-0 Yes 6.25mg Take 6.25 [facility] 6.25 mg 5-02 mg by ity of tablet 19:24: mouth 2 [place] [address] (two) Medical times Branch daily with meals. furosemide 2019-0 Yes 80mg Take 80 mg U nivers (LASIX) 80 5-02 by mouth 3 ity of mg tablet 19:24: (three) [place] [address] times Medical daily. Branch hydralAZINE 2019-0 Yes 50mg Take 50 mg [facility] 50 mg 5-02 by mouth ity of tablet 19:24: every 8 [place] [address] (eight) Medical hours. Branch calcium 2019-0 Yes 2001mg Take 2,001 Un seun acetate 667 5-02 mg by ity of mg capsule 19:24: mouth 3 [facility] (three) Medical times Branch daily with meals. vitamin b 2019- Yes 1{tbl} Take 1 [facility] ers complex-vit 5-02 tablet by ity of villatoro 19:24: mouth [place] c-folic daily. Medical acid Branch (FAUZIA-CONOR) 0.8 mg tablet tamsulosin 2018-0 Yes Take by [facility] vers 0.4 mg 24 5-02 mouth ity of hr capsule 19:24: daily. [place] [address] Medical Branch zolpidem 10 2018-0 Yes 10mg Take 10 mg [facility] mg tablet 5-02 by mouth ity of 19:24: at bedtime [place] [address] as needed Medical for Branch Insomnia. diazePAM 2019-0 Yes 5mg Take 5 mg [facility] ers (VALIUM) 5 5-02 by mouth ity o f mg tablet 19:24: at [place] [address] bedtime. Medical Branch amlodipine 2019-0 Yes 1{tbl} Take 1 Uni vers besylate/be 5-02 tablet by ity of nazepril 19:24: mouth 3 [place] (AMLODIPINE 36 (three) Medic al -BENAZEPRIL times Branch ORAL) daily. carvedilol 2019-0 Yes 6.25mg Take 6.25 [facility] 6.25 mg 5-02 mg by ity of tablet 19:24: mouth 2 [place] [address] (two) Medical times Branch daily with meals. furosemide 2019-0 Yes 80mg Take 80 mg U nivers (LASIX) 80 5-02 by mouth 3 ity of mg tablet 19:24: (three) [place] [address] times Medical daily. Branch hydralAZINE 2019-0 Yes 50mg Take 50 mg [facility] 50 mg 5-02 by mouth ity of tablet 19:24: every 8 [place] [address] (eight) Medical hours. Branch calcium 2019-0 Yes [...] mouth ity of hr capsule 19:24: daily. [place] [address] Medical Branch zolpidem 10 2019-0 Yes 10mg Take 10 mg [facility] mg tablet 5-02 by mouth ity of 19:24: at bedtime [place] [address] as needed Medical for Branch Insomnia. diazePAM 2019-0 Yes 5mg Take 5 mg [facility] ers (VALIUM) 5 5-02 by mouth ity o f mg tablet 19:24: at [place] [address] bedtime. Medical Branch amlodipine 2019-0 Yes 1{tbl} [...] 3 ity of mg tablet 19:24: (three) [place] [address] times Medical daily. Branch hydralAZINE 2019-0 Yes 50mg Take 50 mg [facility] 50 mg 5-02 by mouth ity of tablet 19:24: every 8 [place] [address] (eight) Medical hours. Branch calcium 2019-0 Yes 2001mg Take 2,001 Un seun acetate 667 5-02 mg by ity of mg capsule 19:24: mouth 3 [place] (three) Medical times Branch daily with meals. vitamin b 2019-0 Yes 1{tbl} Take 1 [facility] ers complex-vit 5-02 tablet by ity of villatoro 19:24: mouth [place] c-folic 36 daily. Medical acid Branch (FAUZIA-CONOR) 0.8 mg tablet tamsulosin 2018-0 Yes Take by [facility] vers 0.4 mg 24 5-02 mouth ity of hr capsule 19:24: daily. [place] [address] Medical Branch zolpidem 10 2018-0 Yes 10mg Take 10 mg [facility] mg tablet 5-02 by mouth ity of 19:24: at bedtime [place] [address] as needed Medical for Branch Insomnia. diazePAM 2019-0 Yes 5mg Take 5 mg [facility] ers (VALIUM) 5 5-02 by mouth ity o f mg tablet 19:24: at [place] [address] bedtime. Medical Branch amlodipine 2018-0 Yes 1{tbl} Take 1 Uni vers besylate/be 5-02 tablet by ity of nazepril 19:24: mouth 3 [place] (AMLODIPINE 36 (three) Medic al -BENAZEPRIL times Branch ORAL) daily. carvedilol 2019-0 Yes 6.25mg Take 6.25 [facility] 6.25 mg 5-02 mg by ity of tablet 19:24: mouth 2 [place] [address] (two) Medical times Branch daily with meals. furosemide 2019-0 Yes 80mg Take 80 mg U nivers (LASIX) 80 5-02 by mouth 3 ity of mg tablet 19:24: (three) [place] [address] times Medical daily. Branch hydralAZINE 2018-0 Yes 50mg Take 50 mg [facility] 50 mg 5-02 by mouth ity of tablet 19:24: every 8 [place] [address] (eight) Medical hours. Branch calcium 2019-0 Yes 2001mg Take 2,001 Un seun acetate 667 5-02 mg by ity of mg capsule 19:24: mouth 3 [facility] (three) Medical times Branch daily with meals. vitamin b 2019-0 Yes 1{tbl} Take 1 Univ ers complex-vit 5-02 tablet by ity of villatoro 19:24: mouth [place] c-folic 36 daily. Medical acid Branch (FAUZIA-CONOR) 0.8 mg tablet tamsulosin 2019-0 Yes Take by [facility] vers 0.4 mg 24 5-02 mouth ity of hr capsule 19:24: daily. [place] [address] Medical Branch zolpidem 10 Yes 10mg Take 10 mg [facility] mg tablet 5-02 by mouth ity of 19:24: at bedtime [place] [address] as needed Medical for Branch Insomnia. diazePAM 2018-0 Yes 5mg Take 5 mg [facility] ers (VALIUM) 5 5-02 by mouth ity o f mg tablet 19:24: at [place] [address] bedtime. Medical Branch amlodipine 2019- Yes 1{tbl} Take 1 Uni vers besylate/be 5-02 tablet by ity of nazepril 19:24: mouth 3 [place] (AMLODIPINE 36 (three) Medic al -BENAZEPRIL times Branch ORAL) daily. carvedilol 2018- Yes 6.25mg Take 6.25 [facility] 6.25 mg 5-02 mg by ity of tablet 19:24: mouth 2 [place] [address] (two) Medical times Branch daily with meals. furosemide Yes 80mg Take 80 mg U nivers (LASIX) 80 5-02 by mouth 3 ity of mg tablet 19:24: (three) [place] [address] times Medical daily. Branch hydralAZINE Yes 50mg Take 50 mg [facility] 50 mg 5-02 by mouth ity of tablet 19:24: every 8 [place] [address] (eight) Medical hours. Branch calcium Yes 2001mg Take 2,001 Un seun acetate 667 5-02 mg by ity of mg capsule 19:24: mouth 3 [facility] (three) Medical times Branch daily with meals. vitamin b 2018- Yes 1{tbl} Take 1 [facility] ers complex-vit 5-02 tablet by ity of villatoro 19:24: mouth [place] c-folic daily. Medical acid Branch (FAUZIA-CONOR) 0.8 mg tablet tamsulosin 2018- Yes Take by [facility] vers 0.4 mg 24 5-02 mouth ity of hr capsule 19:24: daily. [place] [address] Medical Branch zolpidem 10 Yes 10mg Take 10 mg [facility] mg tablet 5-02 by mouth ity of 19:24: at bedtime [place] [address] as needed Medical for Branch Insomnia. diazePAM 2018- Yes 5mg Take 5 mg [facility] ers (VALIUM) 5 5-02 by mouth ity o f mg tablet 19:24: at [place] [address] bedtime. Medical Branch amlodipine 2018-0 Yes 1{tbl} Take 1 Uni vers besylate/be 5-02 tablet by ity of nazepril 19:24: mouth 3 [place] (AMLODIPINE 36 (three) Medic al -BENAZEPRIL times Branch ORAL) daily. carvedilol 2019-0 Yes 6.25mg Take 6.25 [facility] 6.25 mg 5-02 mg by ity of tablet 19:24: mouth 2 [place] [address] (two) Medical times Branch daily with meals. furosemide 2019-0 Yes 80mg Take 80 mg U nivers (LASIX) 80 5-02 by mouth 3 ity of mg tablet 19:24: (three) [place] [address] times Medical daily. Branch hydralAZINE 2019-0 Yes 50mg Take 50 mg [facility] 50 mg 5-02 by mouth ity of tablet 19:24: every 8 [place] [address] (eight) Medical hours. Branch calcium 2019-0 Yes 2001mg Take 2,001 Un seun acetate 667 5-02 mg by ity of mg capsule 19:24: mouth 3 [facility] (three) Medical times Branch daily with meals. vitamin b 2019-0 Yes 1{tbl} Take 1 [facility] ers complex-vit 5-02 tablet by ity of villatoro 19:24: mouth [place] c-folic daily. Medical acid Branch (FAUZIA-CONOR) 0.8 mg tablet tamsulosin 2019-0 Yes Take by [facility] vers 0.4 mg 24 5-02 mouth ity of hr capsule 19:24: daily. [place] [address] Medical Branch zolpidem 10 2019-0 Yes 10mg Take 10 mg [facility] mg tablet 5-02 by mouth ity of 19:24: at bedtime [place] [address] as needed Medical for Branch Insomnia. diazePAM 2019-0 Yes 5mg Take 5 mg [facility] ers (VALIUM) 5 5-02 by mouth ity o f mg tablet 19:24: at [place] [address] bedtime. Medical Branch amlodipine 2019-0 Yes 1{tbl} Take 1 Uni vers besylate/be 5-02 tablet by ity of nazepril 19:24: mouth 3 [place] (AMLODIPINE 36 (three) Medic al -BENAZEPRIL times Branch ORAL) daily. carvedilol 2019-0 Yes 6.25mg Take 6.25 [facility] 6.25 mg 5-02 mg by ity of tablet 19:24: mouth 2 [place] [address] (two) Medical times Branch daily with meals. furosemide 2019-0 Yes 80mg Take 80 mg U nivers (LASIX) 80 5-02 by mouth 3 ity of mg tablet 19:24: (three) [place] [address] times Medical daily. Branch hydralAZINE 2019-0 Yes 50mg Take 50 mg [facility] 50 mg 5-02 by mouth ity of tablet 19:24: every 8 [place] [address] (eight) Medical hours. Branch calcium 2019-0 Yes [...] mouth ity of hr capsule 19:24: daily. [place] [address] Medical Branch zolpidem 10 2018-0 Yes 10mg Take 10 mg [facility] mg tablet 5-02 by mouth ity of 19:24: at bedtime [place] [address] as needed Medical for Branch Insomnia. diazePAM 2019-0 Yes 5mg Take 5 mg [facility] ers (VALIUM) 5 5-02 by mouth ity o f mg tablet 19:24: at [place] [address] bedtime. Medical Branch amlodipine 2019-0 Yes 1{tbl} Take 1 Uni vers besylate/be 5-02 tablet by ity of nazepril 19:24: mouth 3 [place] (AMLODIPINE 36 (three) Medic al -BENAZEPRIL times Branch ORAL) daily. carvedilol 2019-0 Yes 6.25mg Take 6.25 [facility] 6.25 mg 5-02 mg by ity of tablet 19:24: mouth 2 [place] 36 (two) Medical times Branch daily with meals. furosemide 2019-0 Yes 80mg Take 80 mg U nivers (LASIX) 80 5-02 by mouth 3 ity of mg tablet 19:24: (three) [place] [address] times Medical daily. Branch hydralAZINE 2019-0 Yes 50mg Take 50 mg [facility] 50 mg 5-02 by mouth ity of tablet 19:24: every 8 [place] [address] (eight) Medical hours. Branch calcium 2019-0 Yes 2001mg Take 2,001 Un seun acetate 667 5-02 mg by ity of mg capsule 19:24: mouth 3 [place] (three) Medical times Branch daily with meals. vitamin b 2019-0 Yes 1{tbl} Take 1 [facility] ers complex-vit 5-02 tablet by ity of villatoro 19:24: mouth [place] c-folic 36 daily. Medical acid Branch (FAUZIA-CONOR) 0.8 mg tablet tamsulosin 2019-0 Yes Take by [facility] vers 0.4 mg 24 5-02 mouth ity of hr capsule 19:24: daily. [place] [address] Medical Branch zolpidem 10 2019-0 Yes 10mg Take 10 mg [facility] mg tablet 5-02 by mouth ity of 19:24: at bedtime [place] [address] as needed Medical for Branch Insomnia. diazePAM 2019-0 Yes 5mg Take 5 mg [facility] ers (VALIUM) 5 5-02 by mouth ity o f mg tablet 19:24: at [place] [address] bedtime. Medical Branch amlodipine 2019-0 Yes 1{tbl} Take 1 Uni vers besylate/be 5-02 tablet by ity of nazepril 19:24: mouth 3 [place] (AMLODIPINE 36 (three) Medic al -BENAZEPRIL times Branch ORAL) daily. carvedilol 2019-0 Yes 6.25mg Take 6.25 [facility] 6.25 mg 5-02 mg by ity of tablet 19:24: mouth 2 [place] 36 (two) Medical times Branch daily with meals. furosemide 2019-0 Yes 80mg Take 80 mg U nivers (LASIX) 80 5-02 by mouth 3 ity of mg tablet 19:24: (three) [place] [address] times Medical daily. Branch hydralAZINE 2019-0 Yes 50mg Take 50 mg [facility] 50 mg 5-02 by mouth ity of tablet 19:24: every 8 [place] [address] (eight) Medical hours. Branch calcium 2019-0 Yes 2001mg Take 2,001 Un seun acetate 667 5-02 mg by ity of mg capsule 19:24: mouth 3 [facility] (three) Medical times Branch daily with meals. vitamin b 2019-0 Yes 1{tbl} Take 1 [facility] ers complex-vit 5-02 tablet by ity of villatoro 19:24: mouth [place] c-folic 36 daily. Medical acid Branch (FAUZIA-CONOR) 0.8 mg tablet tamsulosin 2019-0 Yes Take by [facility] vers 0.4 mg 24 5-02 mouth ity of hr capsule 19:24: daily. [place] [address] Medical Branch zolpidem 10 Yes 10mg Take 10 mg [facility] mg tablet 5-02 by mouth ity of 19:24: at bedtime [place] [address] as needed Medical for Branch Insomnia. diazePAM 2018- Yes 5mg Take 5 mg [facility] ers (VALIUM) 5 5-02 by mouth ity o f mg tablet 19:24: at [place] [address] bedtime. Medical Branch amlodipine 2019-0 Yes 1{tbl} Take 1 Uni vers besylate/be 5-02 tablet by ity of nazepril 19:24: mouth 3 [place] (AMLODIPINE 36 (three) Medic al -BENAZEPRIL times Branch ORAL) daily. carvedilol 2018-0 Yes 6.25mg Take 6.25 [facility] 6.25 mg 5-02 mg by ity of tablet 19:24: mouth 2 [place] [address] (two) Medical times Branch daily with meals. furosemide 0 Yes 80mg Take 80 mg U nivers (LASIX) 80 5-02 by mouth 3 ity of mg tablet 19:24: (three) [place] [address] times Medical daily. Branch hydralAZINE Yes 50mg Take 50 mg [facility] 50 mg 5-02 by mouth ity of tablet 19:24: every 8 [place] [address] (eight) Medical hours. Branch calcium 2018-0 Yes 2001mg Take 2,001 Un seun acetate 667 5-02 mg by ity of mg capsule 19:24: mouth 3 [facility] (three) Medical times Branch daily with meals. vitamin b 2019- Yes 1{tbl} Take 1 [facility] ers complex-vit 5-02 tablet by ity of villatoro 19:24: mouth [place] c-folic 36 daily. Medical acid Branch (FAUZIA-CONOR) 0.8 mg tablet tamsulosin 2018-0 Yes Take by [facility] vers 0.4 mg 24 5-02 mouth ity of hr capsule 19:24: daily. [place] [address] Medical Branch zolpidem 10 Yes 10mg Take 10 mg [facility] mg tablet 5-02 by mouth ity of 19:24: at bedtime [place] [address] as needed Medical for Branch Insomnia. diazePAM 2019- Yes 5mg Take 5 mg [facility] ers (VALIUM) 5 5-02 by mouth ity o f mg tablet 19:24: at [place] [address] bedtime. Medical Branch amlodipine 2019- Yes 1{tbl} Take 1 Uni vers besylate/be 5-02 tablet by ity of nazepril 19:24: mouth 3 [place] (AMLODIPINE 36 (three) Medic al -BENAZEPRIL times Branch ORAL) daily. carvedilol 2019-0 Yes 6.25mg Take 6.25 [facility] 6.25 mg 5-02 mg by ity of tablet 19:24: mouth 2 [place] [address] (two) Medical times Branch daily with meals. furosemide 2019-0 Yes 80mg Take 80 mg U nivers (LASIX) 80 5-02 by mouth 3 ity of mg tablet 19:24: (three) [place] [address] times Medical daily. Branch hydralAZINE 2018-0 Yes 50mg Take 50 mg [facility] 50 mg 5-02 by mouth ity of tablet 19:24: every 8 [place] [address] (eight) Medical hours. Branch calcium 2018-0 Yes 2001mg Take 2,001 Un seun acetate 667 5-02 mg by ity of mg capsule 19:24: mouth 3 [place] [address] (three) Medical times Branch daily with meals. vitamin b 2019- Yes 1{tbl} Take 1 [facility] ers complex-vit 5-02 tablet by ity of villatoro 19:24: mouth [place] c-folic daily. Medical acid Branch (FAUZIA-CONOR) 0.8 mg tablet tamsulosin 2018-0 Yes Take by Uni vers 0.4 mg 24 5-02 mouth ity of hr capsule 19:24: daily. [place] [address] Medical Branch zolpidem 10 2018-0 Yes 10mg Take 10 mg [facility] mg tablet 5-02 by mouth ity of 19:24: at bedtime [place] [address] as needed Medical for Branch Insomnia. diazePAM 2019-0 Yes 5mg Take 5 mg Univ ers (VALIUM) 5 5-02 by mouth ity o f mg tablet 19:24: at [place] [address] bedtime. Medical Branch amlodipine 2019-0 Yes 1{tbl} Take 1 Uni vers besylate/be 5-02 tablet by ity of nazepril 19:24: mouth 3 [place] (AMLODIPINE 36 (three) Medic al -BENAZEPRIL times Branch ORAL) daily. carvedilol 2019-0 Yes 6.25mg Take 6.25 Univers 6.25 mg 5-02 mg by ity of tablet 19:24: mouth 2 [place] [address] (two) Medical times Branch daily with meals. furosemide 2019-0 Yes 80mg Take 80 mg U nivers (LASIX) 80 5-02 by mouth 3 ity of mg tablet 19:24: (three) [place] [address] times Medical daily. Branch hydralAZINE 2019-0 Yes 50mg Take 50 mg Univers 50 mg 5-02 by mouth ity of tablet 19:24: every 8 [place] [address] (eight) Medical hours. Branch calcium 2019-0 Yes [...] mouth ity of hr capsule 19:24: daily. [place] [address] Medical Branch zolpidem 10 2019-0 Yes 10mg Take 10 mg [facility] mg tablet 5-02 by mouth ity of 19:24: at bedtime [place] [address] as needed Medical for Branch Insomnia. diazePAM 2019-0 Yes 5mg Take 5 mg Univ ers (VALIUM) 5 5-02 by mouth ity o f mg tablet 19:24: at [place] [address] bedtime. Medical Branch amlodipine 2019-0 Yes 1{tbl} Take 1 Uni vers besylate/be 5-02 tablet by ity of nazepril 19:24: mouth 3 [place] (AMLODIPINE 36 (three) Medic al -BENAZEPRIL times Branch ORAL) daily. carvedilol 2019-0 Yes 6.25mg Take 6.25 Univers 6.25 mg 5-02 mg by ity of tablet 19:24: mouth 2 [place] [address] (two) Medical times Branch daily with meals. furosemide 2019-0 Yes 80mg Take 80 mg U nivers (LASIX) 80 5-02 by mouth 3 ity of mg tablet 19:24: (three) [place] [address] times Medical daily. Branch hydralAZINE 2019-0 Yes [...] mouth ity of hr capsule 19:24: daily. [place] [address] Medical Branch zolpidem 10 2019-0 Yes 10mg Take 10 mg [facility] mg tablet 5-02 by mouth ity of 19:24: at bedtime [place] as needed Medical for Branch Insomnia. diazePAM 2019-0 Yes 5mg Take 5 mg Univ ers (VALIUM) 5 5-02 by mouth ity o f mg tablet 19:24: at [place] [address] bedtime. Medical Branch amlodipine 2019-0 Yes 1{tbl} [...] mouth ity of tablet 19:24: every 8 [place] [address] (eight) Medical hours. Branch calcium 2019-0 Yes 2001mg Take 2,001 Un seun acetate 667 5-02 mg by ity of mg capsule 19:24: [place] ([place] Medical times Branch daily with meals. vitamin b 2019-0 Yes 1{tbl} Take 1 Univ ers complex-vit 5-02 tablet by ity of villator[place] 19:24: mouth [place] c-folic daily. Medical acid Branch (FAUZIA-CONOR) 0.8 mg tablet tamsulosin Yes Take by Uni vers 0.4 mg 24 5-02 mouth ity of hr capsule 19:24: daily. [place] [address] Medical Branch zolpidem 10 Yes 10mg Take 10 mg [facility] mg tablet 02 by mouth ity of 19:24: at bedtime [place] [address] as needed Medical for Branch Insomnia. diazePAM Yes 5mg Take 5 mg Univ ers (VALIUM) 5 02 by mouth ity o f mg tablet 19:24: at [place] [address] bedtime. Medical Branch NIFEdipine 2017-10 Yes 60 [...] 0-16 unit, 10 l 15:21: mL, Route: [place] 00 DIALYSIS, Drug form: INJ, ONCALL, Dosing [...] 0-15 unit, 10 l 13:00: mL, Route: [place] 00 DIALYSIS, Drug form: INJ, ONCALL, Dosing [...] 0-15 Route: PO, l 02:00: Drug form: [place] 00 TAB, Bedtime, Dosing Weight 102.273, kg, Start date: 07/22/18 21:00:00 CDT, Duration: 30 day, Stop date: 08/20/18 21:00:00 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 tamsulosin 2017-10 No Notes: Memor ia 0-15 (Same As: l 02:00: Flomax) [place] 00 "Do Not Crush" zolpidem 2017- No 10 mg, Memoria 0-15 Route: PO, l 02:00: Drug form: [place] 00 TAB, Bedtime, Dosing Weight 102.273, kg, Start date: 07/22/18 21:00:00 CDT, Duration: 30 day, Stop date: 08/20/18 21:00:00 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 tamsulosin 2017-10 No Notes: Memor ia 0-15 (Same As: l 02:00: Flomax) [place] "Do Not Crush" zolpidem 2017- No 10 mg, Memoria 0-15 Route: PO, l 02:00: Drug form: [place] 00 TAB, Bedtime, Dosing Weight 102.273, kg, Start date: 07/22/18 21:00:00 CDT, Duration: 30 day, Stop date: 08/20/18 21:00:00 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 tamsulosin 2017- No Notes: Memor ia 0-15 (Same As: l 02:00: Flomax) [place] 00 "Do Not Crush" NIFEdipine 2017 No [...] Memoria 0-14 (Same as: l 14:00: Lasix) [place] 00 May cause GI upset. Give with food or milk. carvedilol 2017-10 No Notes: Memor ia 0-14 Give with l 14:00: food. [place] 00 (Same As: Coreg) calcium 2017-10 No Notes: Memoria acetate 667 0-14 Same as l MG Oral 14:00: Phoslo Gel Herm dionne Capsule 00 Cap Amlodipine 2017-10 No Notes: Memor ia 0-14 (Same as: l 14:00: Norvasc) [place] 00 Docusate 2017-10 No Notes: Memoria 0-14 (Same as: l 14:00: Colace) [place] 00 (Do Not Crush) NIFEdipine 2017-10 No [...] ia 0-14 Give with l 14:00: food. [place] 00 (Same As: Coreg) calcium 2017-10 No Notes: Memoria acetate 667 0-14 Same as l MG Oral 14:00: Phoslo Gel Herm d[place] Capsule 00 Cap Amlodipine 2017-10 No Notes: Memor ia 0-14 (Same as: l 14:00: Norvasc) [place] 00 Docusate 2017-10 No Notes: Memoria 0-14 (Same as: l 14:00: Colace) [place] 00 (Do Not Crush) NIFEdipine 2017-10 No Notes: Memor ia 60 mg oral 0-14 (Same as: l tablet, 14:00: Adalat CC, Herm dionne extended 00 Procardia release XL) Give on empty stomach. Take 1 hour before or 2 hours after meal; "Avoid grapefruit and grapefruit juice". Do not crush multivitami 2017-10 No Notes: Kojo lynn n 0-14 (Same l 14:00: as:One Tab [place] 00 Daily, Tab-A-Conor + Beta Carotene) Give [...] Instructio l MG Oral 11:45: ns, 0 [place] Capsule 00 Refill(s) Hydralazine 2017-10 Yes 50 [...] Memoria 0-14 TID, 0 l 11:45: Refill(s) [place] Amlodipine 2017-10 Yes 1 cap, PO, M [...] Instructio l MG Oral 11:45: ns, 0 [place] Capsule 00 Refill(s) Hydralazine 2017-10 Yes 50 [...] Memoria 0-14 Same as: l 11:27: Dilaudid [place] 00 Dilaudid 2017-10 No Notes: Memoria 0-14 Same as: l 11:27: Dilaudid [place] 00 Dilaudid 2017-10 No Notes: Memoria 0-14 Same as: l 11:27: Dilaudid [place] 00 Dilaudid 2017-10 No 1 mg, Memoria 0-14 Route: l 09:04: IVP, ONCE, [place] 00 Dosing Weight 96.7, kg, Priority: STAT, [...] 0-14 unit, 10 l 06:00: mL, Route: [place] 00 DIALYSIS, Drug form: INJ, ONCALL, Dosing Weight 96.7, kg, Start date: 07/22/18 1:00:00 CDT, Duration: 1 doses or times heparin 2017-10 No 10,000 Memoria 0-14 unit, 10 l 06:00: mL, Route: [place] 00 DIALYSIS, Drug form: INJ, ONCALL, Dosing Weight 96.7, kg, Start date: 07/22/18 1:00:00 CDT, Duration: 1 doses or times heparin 2017-10 No 10,000 Memoria 0-14 unit, 10 l 06:00: mL, Route: [place] 00 DIALYSIS, Drug form: INJ, ONCALL, Dosing [...] Duration: 30 day, Stop date: 08/21/18 0:42:00 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, 2.16, m2 Mannitol 2017-10 No Notes: Memoria 0-14 (Same as: l 05:43: Osmitrol) [place] 00 Infuse through 5 micron or smaller [...] Duration: 30 day, Stop date: 08/21/18 0:42:00 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, 2.16, m2 Mannitol 2017-10 No Notes: Memoria [...] Duration: 30 day, Stop date: 08/21/18 0:42:00 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, 2.16, m2 Acetaminoph 2017-10 No Notes: Do M emoria en 0-14 not exceed l 05:22: 4 gm/day. [place] 00 (Same as: Tylenol) Morphine 2017-10 No Notes: Memoria 0-14 Preservati l 05:22: ve free. [place] 00 (Same as: Morphine Sulfate-PF ) Ondansetron 2017-10 No Notes: Kojo lynn 0-14 (Same as: l 05:22: Zofran) [place] 00 MEDICATION WASTE Product Size: 4 mg Product Wasted: ___ mg Acetaminoph 2017-10 No Notes: Do M emoria en 0-14 not exceed l 05:22: 4 gm/day. [place] 00 (Same as: Tylenol) Morphine 2017-10 No Notes: Memoria 0-14 Preservati l 05:22: ve free. [place] 00 (Same as: Morphine Sulfate-PF ) Ondansetron [...] Memoria 0-14 Same as: l 05:07: Dilaudid [place] Dilaudid 2017-10 No Notes: Memoria 0-14 Same as: l 05:07: Dilaudid [place] Dilaudid 2017-10 No Notes: Memoria 0-14 Same as: l 05:07: Dilaudid [place] 00 Zofran 2017-10 No Notes: Memoria 0-14 (Same as: l 04:47: Zofran) [place] 00 MEDICATION WASTE Product Size: 4 mg Product Wasted: ___ mg Zofran 2017-10 No Notes: Memoria 0-14 (Same as: l 04:47: Zofran) [place] 00 MEDICATION WASTE Product Size: 4 mg Product Wasted: ___ mg Zofran 2017-10 No Notes: Memoria 0-14 (Same as: l 04:47: Zofran) [place] 00 MEDICATION WASTE Product Size: 4 mg Product Wasted: ___ mg Dilaudid 2017-10 No Notes: Memoria 0-14 Same as: l 04:46: Dilaudid [place] 00 Dilaudid 2017-10 No Notes: Memoria 0-14 Same as: l 04:46: Dilaudid [place] 00 Dilaudid 2017-10 No Notes: Memoria 0-14 Same as: l 04:46: Dilaudid [place] 00 Hydromorpho 2017-10 No Notes: Kojo lynn ne 0-14 Same as: l 04:13: Dilaudid [place] 00 Hydromorpho 2017-10 No Notes: Kojo lynn ne 0-14 Same as: l 04:13: Dilaudid [place] 00 Hydromorpho 2017-10 No Notes: Kojo lynn [...] as: l 02:24: BD [place] 00 Posiflush) lactulose 2017-10 No = 1 [...] Memor ia 0-12 (sodium l 23:39: polystyren [place] 00 e sulfonate 15 gm/60 ml CANDACE) [...] tab, PO, l Tablet 16:49: PRN, 0 [place] 00 Refill(s) amLODIPine Yes 10 mg = 1 Me moria 10 mg oral 8-14 tab, PO, l tablet 16:49: Daily, 0 [place] 00 Refill(s) Ascorbic Yes 1 tab, PO, [...] tab, PO, l Tablet 16:49: PRN, 0 [place] 00 Refill(s) amLODIPine Yes 10 mg = 1 Me moria 10 mg oral 8-14 tab, PO, l tablet 16:49: Daily, 0 [place] 00 Refill(s) Ascorbic Yes 1 tab, PO, [...] 16:49: PRN, 0 [place] 00 Refill(s) amLODIPine 2018-0 Yes 10 mg = 1 Me moria 10 mg oral 8-14 tab, PO, l tablet 16:49: Daily, 0 [place] 00 Refill(s) tamsulosin 2017-0 No Notes: Memor [...] l oral tablet 20:33: Q12H, # 60 [place] 00 tab, 0 Refill(s) Hydralazine 2018-0 Yes [...] s with feeding tube less than 14 Armenian (Dobhoff, J-tube etc) and pediatric and patients. [...] s with feeding tube less than 14 [place] (Dobhoff, J-tube etc) and pediatric and patients. With food and full glass of water Potassium No Notes: Memori a Chloride 04-15 (Same as: l 20:22: K-Dur 20) [place] 00 "Do Not Crush" For patients unable to swallow tablet, dissolve in one half glass of water. Allow about 2 minutes for the tablets to disintegra te. Stir before giving to prepare slurry and administer . Please exclude Patient s with feeding tube less than 14 [place] (Dobhoff, J-tube etc) and pediatric and patients. With food and full glass of water Hydralazine No Notes: Kojo lynn Hydrochlori 04-15 (Same as: l de 25 MG 14:00: Apresoline [place] Oral Tablet 00 ) May interfere w/enteral feedings Take With Food. Lasix No Notes: Memoria 7-08 (Same as: l 14:00: Lasix) [place] 00 May cause GI upset. Give with [...] 7-08 (Same as: l 14:00: Norvasc) [place] Hydralazine No Notes: Kojo lynn Hydrochlori 7-08 (Same as: l de 25 MG 14:00: Apresoline [place] Oral Tablet 00 ) May interfere w/enteral feedings Take With Food. Lasix No Notes: Memoria 7-08 (Same as: l 14:00: Lasix) [place] 00 [...] ia 7-08 (Same as: l 14:00: Norvasc) [place] 00 Hydralazine No Notes: Kojo lynn Hydrochlori 7-08 (Same as: l de 25 MG 14:00: Apresoline [place] Oral Tablet 00 ) May interfere w/enteral feedings Take With Food. Lasix No Notes: Memoria 7-08 (Same as: l 14:00: Lasix) [place] 00 May cause GI upset. Give with [...] ia 7-08 Give with l 14:00: food. [place] 00 (Same As: Coreg) calcium No Notes: Memoria acetate 667 7-08 Same as l MG Oral 14:00: Phoslo Gel Herm dionne Capsule Cap Amlodipine No Notes: Memor ia 7-08 (Same as: l 14:00: Norvasc) [place] 00 Morphine 2017-0 No 2 mg, 1 Memori a 7-08 mL, Route: l 09:49: IVP, Drug [place] form: SOLN, Q4H, Dosing Weight 87.784, kg, PRN Pain Score 6-10, Start date: 04/15/18 4:49:00 CDT, Duration: 30 day, Stop date: 05/15/18 4:48:00 CDT Morphine 2017-0 No 2 mg, 1 Memori a 7-08 mL, Route: l 09:49: IVP, Drug [place] form: SOLN, Q4H, Dosing Weight 87.784, kg, [...] Memoria - (Same As: l 08:47: Ambien) [place] 00 Ambien No Notes: Memoria 04-15 (Same As: l 08:47: Ambien) [place] 00 Ambien No Notes: Memoria - (Same [...] -08 (Same as: l 07:15: Humalog ) [place] 00 Roll in palms of hands gently; Do not shake `vigorousl y. "Single Patient Use Only " WASTE: F/P - Black; E - Municipal Trash Bin Stable for 28 days at room temperatur e. Expires in days from ____Date Dextrose 2018-0 No 25 gm, 50 Kojo lynn 50% Syringe 7-08 mL, Route: l 07:15: IVP, Drug [place] 00 Form: INJ, Dosing Weight 74.091, kg, [...] 7-08 mL, Route: l 07:15: IVP, Drug [place] 00 Form: INJ, Dosing Weight 74.091, kg, [...] Ergocalcife 2017-0 No 50,000 Kojo lynn rol [id number] 7-08 IntlUnit, l UNT Oral 07:00: 1 cap, [place] Capsule 00 Route: PO, Drug form: CAP, qWeek, Dosing Weight 74.091, kg, Start date: 04/15/18 2:00:00 CDT, Duration: 30 day, Stop date: 05/13/18 9:00:00 CDT Ergocalcife 2017-0 No 50,000 Kojo lynn rol [id number] 7-08 IntlUnit, l UNT Oral 07:00: 1 cap, [place] Capsule 00 Route: PO, Drug form: CAP, qWeek, Dosing Weight 74.091, kg, Start date: 04/15/18 2:00:00 CDT, Duration: 30 day, Stop date: 05/13/18 9:00:00 CDT Ergocalcife 2017-0 No 50,000 Kojo lynn rol [id number] 7-08 IntlUnit, l UNT Oral 07:00: 1 cap, [place] Capsule 00 Route: PO, Drug form: CAP, qWeek, Dosing Weight 74.091, kg, Start date: 04/15/18 2:00:00 CDT, Duration: 30 day, Stop date: 05/13/18 9:00:00 CDT Alprazolam 2017-0 No Notes: Memor ia 2 MG Oral 04-15 With food l Tablet 06:56: or milk [place] [Xanax] 00 (Same as: Xanax) Alprazolam 2017-0 No Notes: Memor ia 2 MG Oral 7-08 With food l Tablet 06:56: or milk [place] [Xanax] 00 (Same as: Xanax) Alprazolam 2017-0 No Notes: Memor ia 2 MG Oral 7-08 With food l Tablet 06:56: or milk [place] [Xanax] 00 (Same as: Xanax) NS (Bolus) 2018-0 No 250 mL, Kojo lynn IV 7-08 500 ml/hr, l 06:34: Infuse [place] 00 Over: 0.5 hr, Route: IV, 250, Drug form: INJ, ONCE, Priority: STAT, Dosing Weight 74.091 kg, Start date: 04/15/18 1:34:00 CDT, Stop date: 04/15/18 1:34:00 CDT NS (Bolus) 2018-0 No 250 mL, Kojo lynn IV 7-08 500 ml/hr, l 06:34: Infuse [place] 00 Over: 0.5 hr, Route: IV, 250, [...] 0.9% 7-07 (Same as: l 23:55: BD [place] 00 Posiflush) Saline No Notes: Memoria Flush 0.9% 7-07 (Same as: l 23:55: BD [place] 00 Posiflush) vancomycin No Notes: Memor ia [...] 6-11 unit, 10 l 15:00: mL, Route: [place] 00 DIALYSIS, Drug form: INJ, ONCALL, Dosing Weight 100.455, kg, Start date: 03/19/18 10:00:00 CDT, Duration: 1 doses or times heparin 2018-0 No 10,000 Memoria 6-11 unit, 10 l 15:00: mL, Route: [place] 00 DIALYSIS, Drug form: INJ, ONCALL, Dosing [...] 6-10 not exceed l 23:00: 4 gm/day. [place] 00 (Same as: Tylenol) Roxicodone No Notes: Memor ia 6-10 (Same as: l 23:00: Roxicodone ) Tylenol No Notes: Do Memor ia 6-10 not exceed l 23:00: 4 gm/day. [place] 00 (Same as: Tylenol) Roxicodone No Notes: Memor ia 6-10 (Same as: l 23:00: Roxicodone ) Tylenol No Notes: Do Memor ia 6-10 not exceed l 23:00: 4 gm/day. [place] 00 (Same as: Tylenol) Roxicodone No Notes: [...] ia 6-10 (Same as: l 14:00: Norvasc) [place] Amlodipine No Notes: Memor ia 6-10 (Same as: l 14:00: Norvasc) [place] Amlodipine No Notes: Memor ia 6-10 (Same as: l 14:00: Norvasc) [place] 00 Alprazolam No Notes: Memor ia 2 MG Oral 6-10 With food l Tablet 04:20: or milk [place] [Xanax] 00 (Same as: Xanax) Alprazolam No Notes: Memor ia 2 MG Oral 6-10 With food l Tablet 04:20: or milk [place] [Xanax] 00 (Same as: Xanax) Alprazolam No Notes: Memor ia 2 MG Oral 6-10 With food l Tablet 04:20: or milk [place] [Xanax] 00 (Same as: Xanax) Vancomycin No 2000 mg: [facility] 610 infuse l Dosing + 03:00: over 2.5 [place] nn Sodium 00 hours For Chloride adult 0.9% IV 250 patients mL only: Round to nearest 250 mg per Medical Staff approval MEDICATION WASTE Product Size: 1000 mg Product Wasted: ___ mg Vancomycin No 2000 mg: [facility] infuse l Dosing + 03:00: over 2.5 [place] nn Sodium 00 hours For Chloride adult 0.9% IV 250 patients mL only: Round to nearest 250 mg per Medical Staff approval MEDICATION WASTE Product Size: 1000 mg Product Wasted: ___ mg Vancomycin No 2000 mg: [facility] 6-10 infuse l Dosing + 03:00: [...] l 02:00: food. [place] (Same As: Coreg) tamsulosin No Notes: Memor ia 6-10 (Same As: l 02:00: Flomax) [place] "Do Not Crush" carvedilol No Notes: Memor ia 6-10 Give with l 02:00: food. [place] (Same As: Coreg) tamsulosin No Notes: Memor [...] Memoria 6-09 (Same as: l 22:00: Lasix) [place] 00 May cause GI upset. Give with [...] lynn 6- (Same as: l 20:10: Apresoline [place] 00 ) Push over 5 minutes Acetaminoph No Notes: Kojo lynn en 325 MG / 03-17 (Same as: l Hydrocodone 20:10: Hannah [place] nn Bitartrate 00 325/5) Do 5 MG Oral not exceed Tablet 4gm/day of [Hannah acetaminop 5/325] hen. Hydralazine No Notes: Kojo lynn 6- (Same as: l 20:10: Apresoline [place] 00 ) Push over 5 minutes Acetaminoph No Notes: Kojo lynn en 325 MG / 03-17 (Same as: l Hydrocodone 20:10: Hannah [place] nn Bitartrate 00 325/5) Do 5 MG Oral not exceed Tablet 4gm/day of [Hannah acetaminop 5/325] hen. Hydralazine No Notes: Kojo lynn 6- (Same as: l 20:10: Apresoline [place] 00 ) Push over 5 minutes Acetaminoph No Notes: Kojo lynn en 325 MG / 03-17 (Same as: l Hydrocodone 20:10: Hannah [place] nn Bitartrate 00 325/5) Do 5 MG Oral not exceed Tablet 4gm/day of [Hannah acetaminop 5/325] hen. phenol No Notes: Memoria 03-17 Chlorasept l 20:08: ic [place] 00 (Same as: Chlorasept ic, Sore Throat [place]) WASTE: F/P - Black; E - Municipal Trash Bin phenol No Notes: Memoria 03-17 Chlorasept l 20:08: ic [place] 00 (Same as: Chlorasept ic, Sore Throat [place]) WASTE: F/P - Black; E - Municipal Trash Bin phenol No Notes: Memoria 03-17 Chlorasept l 20:08: ic [place] 00 (Same as: Chlorasept ic, Sore Throat [place]) WASTE: F/P - Black; E - Municipal Trash Bin Furosemide Yes 80 mg = 1 Me moria 80 MG Oral 03-17 tab, PO, l Tablet 15:44: BID, 0 [place] [Lasix] 00 Refill(s) amLODIPine 2018-0 Yes 10 mg = 1 Me moria 10 mg oral 03-17 tab, PO, l tablet 15:44: Daily, # [place] 00 30 tab, 0 Refill(s) carvedilol 2018-0 Yes 3.125 mg = M emoria 3.125 mg 03-17 1 tab, PO, l oral tablet 15:44: Q12H, # 60 [place] 00 tab, 0 Refill(s) calcium 2018-0 Yes 2,001 mg = Kojo lynn acetate 667 609 3 cap, PO, l MG Oral 15:44: TID, 0 [place] Capsule 00 Refill(s) Acetaminoph 0 Yes 1 [...] l oral tablet 15:44: Q12H, # 60 [place] 00 tab, 0 Refill(s) calcium 2018-0 Yes 2,001 mg = Kojo lynn acetate 667 609 3 cap, PO, l MG Oral 15:44: TID, 0 [place] Capsule 00 Refill(s) Acetaminoph 2018-0 Yes 1 [...] PO, l MG Oral 15:44: TID, 0 [place] Capsule 00 Refill(s) Acetaminoph 2018-0 Yes 1 [...] Chloride 03-17 2000 l 0.9% 12:00: ml/hr, [place] (Bolus) IV 00 Infuse Over: 1 hr, Route: IV, 2,000, Drug form: INJ, ONCE, Priority: STAT, Dosing Weight 98.182 kg, Start date: 03/17/18 7:00:00 CDT, PRN Dialysis cefepime 2018-0 No Notes: Memoria 03-17 (Same As: l 12:00: Maxipime) [place] 00 MEDICATION WASTE Product Size: 1000 mg [...] Chloride - 2000 l 0.9% 12:00: ml/hr, [place] (Bolus) IV 00 Infuse Over: 1 hr, Route: IV, 2,000, Drug form: INJ, ONCE, Priority: STAT, Dosing Weight 98.182 kg, Start date: 03/17/18 7:00:00 CDT, PRN Dialysis cefepime 2018-0 No Notes: Memoria 03-17 (Same As: l 12:00: Maxipime) [place] MEDICATION WASTE Product Size: 1000 mg Product Wasted: ___ mg Saline No Notes: Memoria Flush 0.9% 03-17 (Same as: l 11:53: BD [place] 00 Posiflush) Acetaminoph No Notes: Do M emoria en 03-17 not exceed l 11:53: 4 gm/day. [place] 00 (Same as: Tylenol) Saline No Notes: Memoria Flush 0.9% 03-17 (Same as: l 11:53: BD [place] 00 Posiflush) Acetaminoph No Notes: Do M emoria en 03-17 not exceed l 11:53: 4 gm/day. [place] 00 (Same as: Tylenol) Saline No Notes: Memoria Flush 0.9% 03-17 (Same as: l 11:53: BD [place] 00 Posiflush) Acetaminoph No Notes: Do M emoria en 03-17 not exceed l 11:53: 4 gm/day. [place] 00 (Same as: Tylenol) Insulin No Notes: [...] 03-17 (Same as: l 11:49: Humalog ) [place] 00 Roll in palms of hands gently; [...] Memoria 03-17 (Same as: l 10:49: Zosyn) [place] 00 Dosing based on Piperacill in component [...] Memoria 03-17 (Same as: l 10:49: Zosyn) [place] 00 Dosing based on Piperacill in component MEDICATION WASTE Product Size: 4500 mg Product Wasted: ___ mg Vancomycin 2017-0 No 2000 mg: Me moria 03-17 infuse l 10:49: over 2.5 [place] 00 hours For adult patients only: Round [...] moria 03-17 infuse l 10:49: over 2.5 [place] 00 hours For adult patients only: Round to nearest 250 mg per Medical Staff approval MEDICATION WASTE Product Size: 1000 mg Product Wasted: ___ mg Saline 2017-0 No Notes: Memoria Flush 0.9% 6-09 (Same as: l 07:36: BD [place] 00 Posiflush) Saline No Notes: Memoria Flush 0.9% 6-09 (Same as: l 07:36: BD [place] 00 Posiflush) Saline No Notes: Memoria Flush 0.9% 6-09 (Same as: l 07:36: BD [place] 00 Posiflush) Saline No Notes: Memoria Flush 0.9% 4-17 (Same as: l 00:31: BD [place] 00 Posiflush) Saline No Notes: Memoria Flush 0.9% 4-17 (Same as: l 00:31: BD [place] 00 Posiflush) Saline No Notes: Memoria Flush [...] microgram l oral 14:51: = 1 cap, [place] capsule 00 PO, Daily, # 30 cap, 0 Refill(s), Pharmacy: [facility] calcitriol No 0.5 Memoria 0.5 mcg 3-14 microgram l oral 14:51: = 1 cap, [place] capsule 00 PO, Daily, # 30 cap, 0 Refill(s), Pharmacy: [facility] calcitriol No 0.5 Memoria 0.5 mcg 3-14 microgram l oral 14:51: = 1 cap, [place] capsule 00 PO, Daily, # 30 cap, 0 Refill(s), Pharmacy: [facility] Ergocalcife Yes 50,000 Kojo lynn rol [id number] 3-14 IntlUnit = l UNT Oral 14:47: 1 cap, PO, Her me[place] Capsule 00 qWeek, # 5 cap, 0 Refill(s), Pharmacy: [facility] Calcium 0 No 2,000 mg = Kojo lynn Carbonate 3-14 4 tab, PO, l 500 MG 14:47: TID, # 168 [place] nn Chewable 00 tab, 0 Tablet Refill(s), Pharmacy: [facility] sevelamer No 2,400 mg = Me moria carbonate 3-14 3 tab, PO, l 800 mg oral 14:47: TID-Meals, [place] tablet 00 # 270 tab, 0 Refill(s), Pharmacy: [facility] Furosemide 0 No 80 mg, PO, M emoria 80 MG Oral 3-14 Daily, # l Tablet 14:47: 30 ea, 0 [place] [Lasix] 00 Refill(s), Pharmacy: [facility] carvedilol No 3.125 mg = M emoria 3.125 mg 3-14 1 tab, PO, l oral tablet 14:47: Q12H, # 60 [place] 00 tab, 0 Refill(s), Pharmacy: [facility] amLODIPine No 10 mg = 2 Me moria 5 mg oral 3-14 tab, PO, l tablet 14:47: Daily, # [place] 00 60 tab, 0 Refill(s), Pharmacy: [facility] Ergocalcife Yes 50,000 Kooj lynn rol [id number] 3-14 IntlUnit = l UNT Oral 14:47: 1 cap, PO, Her meeks Capsule 00 qWeek, # 5 cap, 0 Refill(s), Pharmacy: [facility] Calcium 0 No 2,000 mg = Kojo lynn Carbonate 3-14 4 tab, PO, l 500 MG 14:47: TID, # 168 [place] nn Chewable 00 tab, 0 Tablet Refill(s), Pharmacy: [facility] sevelamer 0 No 2,400 mg = Me moria carbonate 3-14 3 tab, PO, l 800 mg oral 14:47: TID-Meals, Marlo tablet 00 # 270 tab, 0 Refill(s), Pharmacy: [facility] Furosemide No 80 mg, PO, M emoria 80 MG Oral 3-14 Daily, # l Tablet 14:47: 30 ea, 0 Marlo [Lasix] 00 Refill(s), Pharmacy: [facility] carvedilol No 3.125 mg = M emoria 3.125 mg 3-14 1 tab, PO, l oral tablet 14:47: Q12H, # 60 [place] 00 tab, 0 Refill(s), Pharmacy: [facility] amLODIPine No 10 mg = 2 Me moria 5 mg oral 3-14 tab, PO, l tablet 14:47: Daily, # [place] 00 60 tab, 0 Refill(s), [facility] [facility] Yes 50,000 Kojo lynn rol [id number] 3-14 IntlUnit = l UNT Oral 14:47: 1 cap, PO, Her meeks Capsule 00 qWeek, # 5 cap, 0 Refill(s), Pharmacy: [facility] Calcium No 2,000 mg = Kojo lynn Carbonate 3-14 4 tab, PO, l 500 MG 14:47: TID, # 168 [place] nn Chewable 00 tab, 0 Tablet Refill(s), Pharmacy: [facility] sevelamer No 2,400 mg = Me moria carbonate 3-14 3 tab, PO, l 800 mg oral 14:47: TID-Meals, [place] tablet 00 # 270 tab, 0 Refill(s), Pharmacy: [facility] Furosemide No 80 mg, PO, M emoria 80 MG Oral 3-14 Daily, # l Tablet 14:47: 30 ea, 0 [place] [Lasix] 00 Refill(s), Pharmacy: [facility] carvedilol No 3.125 mg = M emoria 3.125 mg 3-14 1 tab, PO, l oral tablet 14:47: Q12H, # 60 [place] 00 tab, 0 Refill(s), Pharmacy: [facility] amLODIPine No 10 mg = 2 Me moria 5 mg oral 3-14 tab, PO, l tablet 14:47: Daily, # [place] 00 60 tab, 0 Refill(s), Pharmacy: [facility] [id number] Calcium No Notes: Memoria Gluconate 3-14 WASTE: F/P l 11:50: - Sink; E [place] 00 - [facility] Calcium No Notes: Memoria Gluconate 3-14 WASTE: F/P l 11:50: - Sink; E [place] - [facility] Calcium No Notes: Memoria Gluconate 3-14 WASTE: F/P l 11:50: - Sink; E [place] 00 - [facility] Coreg No Notes: Memoria 3-14 Give with l 02:00: food. [place] 00 (Same As: Coreg) Coreg No Notes: Memoria 3-14 Give with l 02:00: food. [place] 00 (Same As: Coreg) Coreg No Notes: Memoria 3-14 Give with l 02:00: food. [place] 00 (Same As: Coreg) Lasix No Notes: Memoria 3-13 (Same as: l 14:00: Lasix) [place] 00 MEDICATION WASTE Product Size: 40 mg Product Wasted: ___ mg Vitamin D2 No Notes: Memor ia 3-13 (Same as: l 14:00: Vitamin D) [place] 00 "Do Not Crush" Lasix No Notes: Memoria 3-13 (Same as: l 14:00: Lasix) [place] 00 MEDICATION WASTE Product Size: 40 mg Product Wasted: ___ mg Vitamin D2 No Notes: Memor ia 3-13 (Same as: l 14:00: Vitamin D) [place] 00 "Do Not Crush" Lasix No Notes: Memoria 3-13 (Same as: l 14:00: Lasix) [place] 00 MEDICATION WASTE Product Size: 40 mg Product Wasted: ___ mg Vitamin D2 No Notes: Memor ia 3-13 (Same as: l 14:00: Vitamin D) [place] 00 "Do Not Crush" Calcium No Notes: Memoria Gluconate 3-13 WASTE: F/P l 11:39: - Sink; E [place] 00 - [facility] Calcium No Notes: Memoria Gluconate 3-13 WASTE: F/P l 11:39: - Sink; E [place] 00 - [facility] Calcium No Notes: Memoria Gluconate 3-13 WASTE: F/P l 11:39: - Sink; E [place] 00 - [facility] Calcium No Notes: Memoria Gluconate 3-12 WASTE: F/P l 20:44: - Sink; E [place] - [facility] Calcium No Notes: Memoria Gluconate 3-12 WASTE: F/P l 20:44: - Sink; E [place] - [facility] Calcium No Notes: Memoria Gluconate 3-12 WASTE: F/P l 20:44: - Sink; E [place] 00 - [facility] Calcium No [...] WASTE: F/P l 10:53: - Sink; E [place] - [facility] Calcium No Notes: Memoria Gluconate 3-12 WASTE: F/P l 10:53: - Sink; E [place] - [facility] Calcium No Notes: Memoria Gluconate 3-12 WASTE: F/P l 10:53: - Sink; [place] 00 - [facility] Calcium No Notes: Memoria Gluconate 3-12 WASTE: F/P l 04:35: - Sink; E [place] 00 - [facility] Calcium No Notes: Memoria Gluconate 3-12 WASTE: F/P l 04:35: - Sink; E [place] 00 - [facility] Calcium No Notes: Memoria Gluconate 3-12 WASTE: F/P l 04:35: - Sink; E [place] 00 - [facility] RenaGel No Notes: Memoria 3-11 Same as: l 17:00: Renvela [place] RenaGel No Notes: Memoria 3-11 Same as: l 17:00: Renvela [place] RenaGel No Notes: Memoria 3-11 Same as: l 17:00: Renvela [place] Lasix No Notes: Memoria 3-11 (Same as: l 14:00: Lasix) [place] 00 MEDICATION WASTE Product Size: 40 mg Product Wasted: ___ mg Venofer No Notes: Memoria 3-11 Each 5ml l 14:00: contains [place] 00 100mg elemental iron. Mix with NS [...] F/P l 11:35: - Sink; E [place] - [facility] Calcium No Notes: Memoria Gluconate 3-11 WASTE: F/P l 11:35: - Sink; E [place] 00 - [facility] Kayexalate No Notes: Memor ia 3-11 (sodium l 01:11: polystyren [place] 00 e sulfonate 15 gm/60 ml CANDACE) Shake well before use. (Same as: Kayexalate , SPS) sodium No Notes: Memoria bicarbonate 3-11 (sodium l 8.4% 01:11: bicarb [place] 00 8.4% (1 mEq/ml) 50 ml syringe) [...] ia 3-10 (Same as: l 15:00: Norvasc) [place] Amlodipine No Notes: Memor ia 3-10 (Same as: l 15:00: Norvasc) [place] Amlodipine No Notes: Memor ia 3-10 (Same as: l 15:00: Norvasc) [place] Kayexalate No Notes: Memor ia 3-10 (sodium [...] WASTE: F/P l 23:43: - Sink; E [place] 00 - [facility] Calcium No [...] Memoria 3-09 (Same as: l 21:38: Dilaudid) [place] 00 Dilaudid No Notes: Memoria 3-09 (Same as: l 21:38: Dilaudid) [place] Morphine No Notes: Memoria 3-09 (Same l 19:02: as:MORPhin [place] 00 e Sulfate) Morphine No Notes: Memoria 3-09 (Same l 19:02: as:MORPhin [place] 00 e Sulfate) Morphine No Notes: Memoria 3-09 (Same l 19:02: as:MORPhin [place] 00 e Sulfate) Acetaminoph No 2 tabs, [...] tab, PO, l tablet 18:19: Daily, 0 [place] 00 Refill(s) Alprazolam Yes 2 mg = 1 Mem oria 2 MG Oral 3-09 tab, PO, l Tablet 18:19: BID, PRN [place] [Xanax] 00 as needed for anxiety, 0 [...] tab, PO, l tablet 18:19: Daily, 0 [place] 00 Refill(s) Amlodipine No 1 cap, PO, M emoria 10 MG / 3 TID, 0 l Benazepril 18:19: Refill(s) He rmann hydrochlori 00 de 20 MG Oral Capsule [Lotrel 07/28] lisinopril No 20 mg = 1 Me moria 20 mg oral - tab, PO, l tablet 18:19: Daily, 0 [place] 00 Refill(s) Calcium No Notes: Memoria Carbonate [...] 12-15 not exceed l 14:31: 4 gm/day. [place] 00 (Same as: Tylenol) Acetaminoph No Notes: Kojo lynn en 325 MG / 12-15 (Same as: l Hydrocodone 14:31: Hannah [place] nn Bitartrate 00 325/5) Do 5 MG Oral not exceed Tablet 4gm/day of acetaminop hen. Ondansetron No Notes: Kojo lynn 3-09 (Same as: l 14:31: Zofran) [place] 00 MEDICATION WASTE Product Size: 4 mg Product Wasted: ___ mg Acetaminoph No Notes: Do M emoria en 12-15 not exceed l 14:31: 4 gm/day. [place] 00 (Same as: Tylenol) Acetaminoph No Notes: Kojo lynn en 325 MG / 309 (Same as: l Hydrocodone 14:31: Hannah [place] nn Bitartrate 00 325/5) Do 5 MG Oral not exceed Tablet 4gm/day of acetaminop hen. Ondansetron No Notes: Kojo lynn 3- (Same as: l 14:31: Zofran) [place] 00 MEDICATION WASTE Product Size: 4 mg Product Wasted: ___ mg Acetaminoph No Notes: Do M emoria en - not exceed l 14:31: 4 gm/day. [place] 00 (Same as: Tylenol) Acetaminoph No Notes: Kojo lynn en 325 MG / 3 (Same as: l Hydrocodone 14:31: Hannah [place] nn Bitartrate 00 325/5) Do 5 MG Oral not exceed Tablet 4gm/day of acetaminop hen. Saline No Notes: Memoria Flush 0.9% 3-09 (Same as: l 12:30: BD [place] 00 Posiflush) Saline No Notes: Memoria Flush 0.9% 3-09 (Same as: l 12:30: BD [place] 00 Posiflush) Saline No Notes: Memoria Flush 0.9% 3-09 (Same as: l 12:30: BD [place] 00 Posiflush) Lasix No Notes: Memoria 3-09 (Same as: l 10:45: Lasix) [place] 00 MEDICATION WASTE Product Size: 40 mg Product Wasted: ___ mg Lasix 2018-0 No Notes: Memoria 12-15 (Same as: l 10:45: Lasix) [place] 00 MEDICATION WASTE Product Size: 40 mg Product Wasted: ___ mg Lasix 2018-0 No Notes: Memoria 12-15 (Same as: l 10:45: Lasix) [place] 00 MEDICATION WASTE Product Size: 40 mg Product Wasted: ___ mg Immunizations Ordered Filled Immunization Date Status Comments [facility] e Immunization Name Name influenza virus 2020-07-15 Completed [facility] [place] vaccine, 19:16:00 inactivated influenza virus 2020-07-15 Completed [facility] [place] vaccine, 19:16:00 inactivated influenza virus 2020-07-15 Completed [facility] [place] vaccine, 19:16:00 inactivated Hep B, Adol or Pedi 2018-08-16 Completed [facility] Dosage 00:00:00 [facility] Hep B, Adol or Pedi [...] 2018-08-16 Completed [facility] of Dosage 00:00:00 [facility] Hep B, Adol or Pedi 2018-08-16 Completed [facility] rs[facility] of Dosage 00:00:00 [facility] Hep B, Adol or Pedi 2018-08-16 Completed [facility] rs[facility] of Dosage 00:00:00 [facility] Hep B, Adol or Pedi 2018-08-16 Completed [facility] rs[facility] of Dosage 00:00:00 [facility] Hep B, Adol or Pedi 2018-08-16 Completed [facility] rs[facility] of Dosage 00:00:00 [facility] Influenza Virus 2018-06-28 Completed [facility] Vaccine 00:00:00 [facility] Influenza Virus 2018-06-28 Completed [facility] Vaccine 00:00:00 [facility] Influenza Virus 2018-06-28 Completed [facility] Vaccine 00:00:00 [facility] Influenza Virus 2018-06-28 Completed [facility] Vaccine 00:00:00 [facility] Influenza Virus 2018-06-28 Completed [facility] Vaccine 00:00:00 [facility] Influenza Virus 2018-06-28 Completed [facility] Vaccine 00:00:00 [facility] Influenza Virus 2018-06-28 Completed [facility] Vaccine 00:00:00 [facility] Influenza Virus 2018-06-28 Completed [facility] Vaccine 00:00:00 [facility] Influenza Virus 2018-06-28 Completed [facility] Vaccine 00:00:00 [facility] Influenza Virus 2018-06-28 Completed [facility] Vaccine 00:00:00 [facility] Influenza Virus 2018-06-28 Completed [facility] Vaccine 00:00:00 [facility] Influenza Virus 2018-06-28 Completed [facility] Vaccine 00:00:00 [facility] Influenza Virus 2018-06-28 Completed [facility] Vaccine 00:00:00 [facility] Influenza Virus 2018-06-28 Completed [facility] Vaccine 00:00:00 [facility] Influenza Virus 2018-06-28 Completed [facility] Vaccine 00:00:00 [facility] Influenza Virus 2018-06-28 Completed [facility] Vaccine 00:00:00 [facility] Influenza Virus 2018-06-28 Completed [facility] Vaccine 00:00:00 [facility] Influenza Virus 2018-06-28 Completed [facility] Vaccine 00:00:00 [facility] Influenza Virus 2018-06-28 Completed [facility] Vaccine 00:00:00 [facility] Influenza Virus 2018-06-28 Completed [facility] Vaccine 00:00:00 [facility] Influenza Virus 2018-06-28 Completed [facility] Vaccine 00:00:00 [facility] Influenza Virus 2018-06-28 Completed [facility] Vaccine 00:00:00 [facility] Influenza Virus 2018-06-28 Completed [facility] Vaccine 00:00:00 [facility] Influenza Virus 2018-06-28 Completed [facility] Vaccine 00:00:00 [facility] Influenza Virus 2018-06-28 Completed [facility] Vaccine 00:00:00 [facility] Influenza Virus 2018-06-28 Completed [facility] of Vaccine 00:00:00 [facility] Influenza Virus 2018-06-28 Completed [facility] of Vaccine 00:00:00 [facility] Influenza Virus 2018-06-28 Completed [facility] Vaccine 00:00:00 [facility] Influenza Virus 2018-06-28 Completed [facility] Vaccine 00:00:00 [facility] Influenza Virus 2018-06-28 Completed [facility] of Vaccine 00:00:00 [facility] Influenza Virus 2018-06-28 Completed [facility] Vaccine 00:00:00 [facility] Influenza Virus 2018-06-28 Completed [facility] Vaccine 00:00:00 [facility] Influenza Virus 2018-06-28 Completed [facility] Vaccine 00:00:00 [facility] Influenza Virus 2018-06-28 Completed [facility] Vaccine 00:00:00 [facility] Influenza Virus 2018-06-28 Completed [facility] Vaccine 00:00:00 [facility] Influenza Virus 2018-06-28 Completed [facility] Vaccine 00:00:00 [facility] Influenza Virus 2018-06-28 Completed [facility] Vaccine 00:00:00 [facility] Influenza Virus 2018-06-28 Completed [facility] Vaccine 00:00:00 [facility] Influenza Virus 2018-06-28 Completed [facility] Vaccine 00:00:00 [facility] Influenza Virus 2018-06-28 Completed [facility] Vaccine 00:00:00 [facility] Influenza Virus 2018-06-28 Completed [facility] Vaccine 00:00:00 [facility] Influenza Virus 2018-06-28 Completed [facility] Vaccine 00:00:00 [facility] Influenza Virus 2018-06-28 Completed [facility] Vaccine 00:00:00 [facility] Influenza Virus 2018-06-28 Completed [facility] Vaccine 00:00:00 [facility] Influenza Virus 2018-06-28 Completed [facility] of Vaccine 00:00:00 [facility] Influenza Virus 2018-06-28 Completed [facility] Vaccine 00:00:00 [facility] Influenza Virus 2018-06-28 Completed [facility] Vaccine 00:00:00 [facility] Influenza Virus 2018-06-28 Completed [facility] Vaccine 00:00:00 [facility] Influenza Virus 2018-06-28 Completed [facility] of Vaccine 00:00:00 [facility] Influenza Virus 2018-06-28 Completed [facility] Vaccine 00:00:00 [facility] Influenza Virus 2018-06-28 Completed [facility] Vaccine 00:00:00 [facility] Influenza Virus 2018-06-28 Completed [facility] of Vaccine 00:00:00 [facility] Influenza Virus 2018-06-28 Completed [facility] Vaccine 00:00:00 [facility] Influenza Virus 2018-06-28 Completed [facility] Vaccine 00:00:00 [facility] Influenza Virus 2018-06-28 Completed [facility] Vaccine 00:00:00 [facility] Influenza Virus 2018-06-28 Completed [facility] Vaccine 00:00:00 [facility] Influenza Virus 2018-06-28 Completed [facility] Vaccine 00:00:00 [facility] Influenza Virus 2018-06-28 Completed [facility] of Vaccine 00:00:00 [facility] Influenza Virus 2018-06-28 Completed [facility] Vaccine 00:00:00 [facility] Influenza Virus 2018-06-28 Completed [facility] Vaccine 00:00:00 [facility] Influenza Virus 2018-06-28 Completed [facility] Vaccine 00:00:00 [facility] Influenza Virus 2018-06-28 Completed [facility] Vaccine 00:00:00 [facility] Influenza Virus 2018-06-28 Completed [facility] Vaccine 00:00:00 [facility] Influenza Virus 2018-06-28 Completed [facility] of Vaccine 00:00:00 [facility] Influenza Virus 2018-06-28 Completed [facility] of Vaccine 00:00:00 [facility] Influenza Virus 2018-06-28 Completed [facility] of Vaccine 00:00:00 [facility] Influenza Virus 2018-06-28 Completed [facility] of Vaccine 00:00:00 [facility] Influenza Virus 2018-06-28 Completed [facility] of Vaccine 00:00:00 [facility] Influenza Virus 2018-06-28 Completed [facility] of Vaccine 00:00:00 [facility] Influenza Virus 2018-06-28 Completed [facility] of Vaccine 00:00:00 [facility] Influenza Virus 2018-06-28 Completed [facility] of Vaccine 00:00:00 [facility] Influenza Virus 2018-06-28 Completed [facility] of Vaccine 00:00:00 [facility] Influenza Virus 2018-06-28 Completed [facility] of Vaccine 00:00:00 [facility] Influenza Virus 2018-06-28 Completed [facility] of Vaccine 00:00:00 [facility] Influenza Virus 2018-06-28 Completed [facility] of Vaccine 00:00:00 [facility] Influenza Virus 2018-06-28 Completed [facility] of Vaccine 00:00:00 [facility] Influenza Virus 2018-06-28 Completed [facility] of Vaccine 00:00:00 [facility] Influenza Virus 2018-06-28 Completed [facility] of Vaccine 00:00:00 [facility] Influenza Virus 2018-06-28 Completed [facility] Vaccine 00:00:00 [facility] Influenza Virus 2018-06-28 Completed [facility] of Vaccine 00:00:00 [facility] Influenza Virus 2018-06-28 Completed [facility] of Vaccine 00:00:00 [facility] Influenza Virus 2018-06-28 Completed [facility] of Vaccine 00:00:00 [facility] Influenza Virus 2018-06-28 Completed [facility] of Vaccine 00:00:00 [facility] Influenza Virus 2018-06-28 Completed [facility] of Vaccine 00:00:00 [facility] Influenza Virus 2018-06-28 Completed [facility] of Vaccine 00:00:00 [facility] Influenza Virus 2018-06-28 Completed [facility] of Vaccine 00:00:00 [facility] Influenza Virus 2018-06-28 Completed [facility] of Vaccine 00:00:00 [facility] Influenza Virus 2018-06-28 Completed [facility] Vaccine 00:00:00 [facility] Hep B, Adol or Pedi 2018-05-08 Completed [...] 2018-04-05 Completed [facility] Dosage 00:00:00 [facility] Hep B, Adol or Pedi 2018-04-05 Completed [facility] rs[facility] of Dosage 00:00:00 [facility] Hep B, Adol or Pedi 2018-04-05 Completed [facility] rs[facility] of Dosage 00:00:00 [facility] Hep B, Adol or Pedi 2018-04-05 Completed Unive rs[facility] of Dosage 00:00:00 [facility] Hep B, Adol or Pedi 2018-04-05 Completed [facility] rs[facility] of Dosage 00:00:00 [facility] Hep B, Adol or Pedi 2018-04-05 Completed [facility] rs[facility] of Dosage 00:00:00 [facility] Hep B, Adol or Pedi 2018-04-05 Completed [facility] rs[facility] of Dosage 00:00:00 [facility] Hep B, Adol or Pedi 2018-04-05 Completed [facility]ive rs[facility] of Dosage 00:00:00 [facility] Hep B, Adol or Pedi 2018-04-05 Completed [facility] rs[facility] of Dosage 00:00:00 [facility] Hep B, Adol or Pedi 2018-04-05 Completed [facility]ive rs[facility] of Dosage 00:00:00 [facility] Hep B, Adol or Pedi 2018-04-05 Completed [facility]ive rsity of Dosage 00:00:00 [facility] Hep B, Adol or Pedi 2018-04-05 Completed [facility]ive rs[facility] of Dosage 00:00:00 [facility] Hep B, Adol or Pedi 2018-04-05 Completed [facility] rsity of Dosage 00:00:00 [facility] Hep B, Adol or Pedi 2018-04-05 Completed [facility]ive rsity of Dosage 00:00:00 [facility] Hep B, Adol or Pedi 2018-04-05 Completed [facility] rs[facility] of Dosage 00:00:00 [facility] pneumococcal 2018-03-20 Completed [facility] Her meeks 13-valent [...] 2018-03-03 Completed [facility] rs[facility] of Dosage 00:00:00 [facility] Hep B, Adol or Pedi 2018-03-03 Completed [facility] rs[facility] of Dosage 00:00:00 [facility] Hep B, Adol or Pedi 2018-03-03 Completed [facility]ive rs[facility] of Dosage 00:00:00 [facility] Hep B, Adol or Pedi 2018-03-03 Completed [facility]ive rs[facility] of Dosage 00:00:00 [facility] Hep B, Adol or Pedi 2018-03-03 Completed Unive rs[facility] of Dosage 00:00:00 [facility] Hep B, Adol or Pedi 2018-03-03 Completed [facility]ive rs[facility] of Dosage 00:00:00 [facility] Hep B, Adol or Pedi 2018-03-03 Completed [facility]ive rs[facility] of Dosage 00:00:00 [facility] Hep B, Adol or Pedi 2018-03-03 Completed [facility]ive rsity of Dosage 00:00:00 [facility] Hep B, Adol or Pedi 2018-03-03 Completed [facility]ive rs[facility] of Dosage 00:00:00 [facility] Hep B, Adol or Pedi 2018-03-03 Completed [facility]ive rsity of Dosage 00:00:00 [facility] Hep B, Adol or Pedi 2018-03-03 Completed [facility]ive rs[facility] of Dosage 00:00:00 [facility] Hep B, Adol or Pedi 2018-03-03 Completed [facility]ive rs[facility] of Dosage 00:00:00 [facility] Hep B, Adol or Pedi 2018-03-03 Completed [facility] rs[facility] of Dosage 00:00:00 [facility] Hep B, Adol or Pedi 2018-03-03 Completed [facility] of Dosage 00:00:00 [facility] Pneumococcal 2018-03-01 Completed [facility] o f Polysaccharide, 00:00:00 [facility] [place] [facility] PPSV23 (PNEUMOVAX) [facility] Pneumococcal 2018-03-01 [...] 2018-03-01 Completed [facility] o f Polysaccharide, 00:00:00 [facility] PPSV23 (PNEUMOVAX) [facility] Pneumococcal 2018-03-01 Completed [facility] o f Polysaccharide, 00:00:00 [facility] PPSV23 (PNEUMOVAX) [facility] Pneumococcal 2018-03-01 Completed [facility] o f Polysaccharide, 00:00:00 [facility] PPSV23 (PNEUMOVAX) [facility] PPD (TB) 2018-02-27 Completed [facility] of 00:00:00 [facility] PPD (TB) 2018-02-27 Completed [facility] of 00:00:00 [facility] PPD (TB) 2018-02-27 Completed [facility] of 00:00:00 [facility] PPD (TB) 2018-02-27 Completed [facility] of 00:00:00 [facility] PPD (TB) 2018-02-27 Completed [facility] of 00:00:00 [facility] PPD (TB) 2018-02-27 Completed [facility] of 00:00:00 [facility] PPD (TB) 2018-02-27 Completed [facility] of 00:00:00 [facility] PPD (TB) 2018-02-27 Completed [facility] of 00:00:00 [facility] PPD (TB) 2018-02-27 Completed [facility] of 00:00:00 [facility] PPD (TB) 2018-02-27 Completed [facility] of 00:00:00 [facility] PPD (TB) 2018-02-27 Completed [facility] of 00:00:00 [facility] PPD (TB) 2018-02-27 Completed [facility] of 00:00:00 [facility] PPD (TB) 2018-02-27 Completed [facility] of 00:00:00 [facility] PPD (TB) 2018-02-27 Completed [facility] of 00:00:00 [facility] PPD (TB) 2018-02-27 Completed [facility] of 00:00:00 [facility] PPD (TB) 2018-02-27 Completed [facility] of 00:00:00 [facility] PPD (TB) 2018-02-27 Completed [facility] of 00:00:00 [facility] PPD (TB) 2018-02-27 Completed [facility] of 00:00:00 [facility] PPD (TB) 2018-02-27 Completed [facility] of 00:00:00 [facility] PPD (TB) 2018-02-27 Completed [facility] of 00:00:00 [facility] PPD (TB) 2018-02-27 Completed [facility] 00:00:00 [facility] PPD (TB) 2018-02-27 Completed [facility] 00:00:00 [facility] PPD (TB) 2018-02-27 Completed [facility] 00:00:00 [facility] PPD (TB) 2018-02-27 Completed [facility] 00:00:00 [facility] PPD (TB) 2018-02-27 Completed [facility] 00:00:00 [facility] PPD (TB) 2018-02-27 Completed [facility] 00:00:00 [facility] PPD (TB) 2018-02-27 Completed [facility] 00:00:00 [facility] PPD (TB) 2018-02-27 Completed [facility] 00:00:00 [facility] PPD (TB) 2018-02-27 Completed [facility] 00:00:00 [facility] PPD (TB) 2018-02-27 Completed [facility] 00:00:00 [facility] PPD (TB) 2018-02-27 Completed [facility] 00:00:00 [facility] PPD (TB) 2018-02-27 Completed [facility] 00:00:00 [facility] PPD (TB) 2018-02-27 Completed [facility] 00:00:00 [facility] PPD (TB) 2018-02-27 Completed [facility] 00:00:00 [facility] PPD (TB) 2018-02-27 Completed [facility] 00:00:00 [facility] PPD (TB) 2018-02-27 Completed [facility] 00:00:00 [facility] PPD (TB) 2018-02-27 Completed [facility] 00:00:00 [facility] PPD (TB) 2018-02-27 Completed [facility] 00:00:00 [facility] PPD (TB) 2018-02-27 Completed [facility] 00:00:00 [facility] PPD (TB) 2018-02-27 Completed [facility] 00:00:00 [facility] PPD (TB) 2018-02-27 Completed [facility] 00:00:00 [facility] PPD (TB) 2018-02-27 Completed [facility] 00:00:00 [facility] PPD (TB) 2018-02-27 Completed [facility] 00:00:00 [facility] PPD (TB) 2018-02-27 Completed [facility] 00:00:00 [facility] PPD (TB) 2018-02-27 Completed [facility] 00:00:00 [facility] PPD (TB) 2018-02-27 Completed [facility] 00:00:00 [facility] PPD (TB) 2018-02-27 Completed [facility] 00:00:00 [facility] PPD (TB) 2018-02-27 Completed [facility] 00:00:00 [facility] PPD (TB) 2018-02-27 Completed [facility] 00:00:00 [facility] PPD (TB) 2018-02-27 Completed [facility] 00:00:00 [facility] PPD (TB) 2018-02-27 Completed [facility] 00:00:00 [facility] PPD (TB) 2018-02-27 Completed [facility] 00:00:00 [facility] PPD (TB) 2018-02-27 Completed [facility] 00:00:00 [facility] PPD (TB) 2018-02-27 Completed [facility] 00:00:00 [facility] PPD (TB) 2018-02-27 Completed [facility] 00:00:00 [facility] PPD (TB) 2018-02-27 Completed [facility] 00:00:00 [facility] PPD (TB) 2018-02-27 Completed [facility] 00:00:00 [facility] PPD (TB) 2018-02-27 Completed [facility] 00:00:00 [facility] PPD (TB) 2018-02-27 Completed [facility] 00:00:00 [facility] PPD (TB) 2018-02-27 Completed [facility] 00:00:00 [facility] PPD (TB) 2018-02-27 Completed [facility] 00:00:00 [facility] PPD (TB) 2018-02-27 Completed [facility] 00:00:00 [facility] PPD (TB) 2018-02-27 Completed [facility] 00:00:00 [facility] PPD (TB) 2018-02-27 Completed [facility] 00:00:00 [facility] PPD (TB) 2018-02-27 Completed [facility] 00:00:00 [facility] PPD (TB) 2018-02-27 Completed [facility] 00:00:00 [facility] PPD (TB) 2018-02-27 Completed [facility] 00:00:00 [facility] PPD (TB) 2018-02-27 Completed [facility] 00:00:00 [facility] PPD (TB) 2018-02-27 Completed [facility] 00:00:00 [facility] PPD (TB) 2018-02-27 Completed [facility] 00:00:00 [facility] PPD (TB) 2018-02-27 Completed [facility] 00:00:00 [facility] PPD (TB) 2018-02-27 Completed [facility] of 00:00:00 [facility] PPD (TB) 2018-02-27 Completed [facility] 00:00:00 [facility] PPD (TB) 2018-02-27 Completed [facility] 00:00:00 [facility] PPD (TB) 2018-02-27 Completed [facility] 00:00:00 [facility] PPD (TB) 2018-02-27 Completed [facility] 00:00:00 [facility] PPD (TB) 2018-02-27 Completed [facility] 00:00:00 [facility] PPD (TB) 2018-02-27 Completed [facility] 00:00:00 [facility] PPD (TB) 2018-02-27 Completed [facility] 00:00:00 [facility] PPD (TB) 2018-02-27 Completed [facility] 00:00:00 [facility] PPD (TB) 2018-02-27 Completed [facility] 00:00:00 [facility] PPD (TB) 2018-02-27 Completed [facility] 00:00:00 [facility] PPD (TB) 2018-02-27 Completed [facility] 00:00:00 [facility] PPD (TB) 2018-02-27 Completed [facility] 00:00:00 [facility] PPD (TB) 2018-02-27 Completed [facility] 00:00:00 [facility] PPD (TB) 2018-02-27 Completed [facility] 00:00:00 [facility] PPD (TB) 2018-02-27 Completed [facility] 00:00:00 [facility] PPD (TB) 2018-02-27 Completed [facility] 00:00:00 [facility] Vital Signs Vital Name Observation Time Observation Value Comments Source Systolic blood 2021-04-22 15:38:00 128 mm[Hg] Univer sity of pressure [facility] Diastolic blood 2021-04-22 15:38:00 79 mm[Hg] Unive rsity of pressure [facility] Heart rate 2021-04-22 15:38:00 73 /min [facility] Body temperature 2021-04-22 15:38:00 [facility]61 [facility] height 2021-04-22 15:38:00 170.2 cm [facility] Body weight 2021-04-22 15:38:00 91.491 kg [facility] BMI 2021-04-22 15:38:00 31.59 kg/m2 [facility] of [facility] Systolic blood 2021-04-22 15:38:00 128 mm[Hg] Univer sity of pressure [facility] Diastolic blood 2021-04-22 15:38:00 79 mm[Hg] Unive rsity of pressure [facility] Heart rate 2021-04-22 15:38:00 73 /min Universi ty of [facility] Body temperature 2021-04-22 15:38:00 36.61 [facility] Body height 2021-04-22 15:38:00 170.2 cm Universi ty of [facility] Body weight 2021-04-22 15:38:00 91.491 kg Universi ty of [facility] BMI 2021-04-22 15:38:00 31.59 kg/m2 [facility] of [facility] Systolic blood 2020-06-23 16:05:00 143 mm[Hg] Univer sity of pressure [facility] Diastolic blood 2020-06-23 16:05:00 76 mm[Hg] Unive rsity of [facility] Heart rate 2020-06-23 16:05:00 80 /min Universi ty of [facility] Body temperature 2020-06-23 16:05:00 36.83 [facility] Respiratory rate 2020-06-23 16:05:00 18 /min Univ ersity of [facility] Oxygen saturation in 2020-06-23 16:05:00 96 /min [facility] of Arterial blood by [facility] Pulse oxim[facility] Body height 2020-06-21 01:16:00 170.2 cm Universi ty of [facility] Body weight 2020-06-21 01:16:00 111.494 kg [facility] BMI 2020-06-21 01:16:00 38.50 kg/m2 [facility]i ty of [facility] Body weight 2020-04-28 21:00:00 102 kg Universi ty of [facility] BMI 2020-04-28 21:00:00 35.22 kg/m2 [facility]i ty of [facility] Systolic blood 2020-03-30 19:05:00 152 mm[Hg] Univer sity of pressure [facility] Diastolic blood 2020-03-30 19:05:00 77 mm[Hg] Unive rsity of pressure [facility] Respiratory rate 2020-03-30 19:05:00 20 /min Univ ers[facility] of [facility] Body height 2020-03-30 15:17:00 170.2 cm [facility] Body weight 2020-03-30 15:17:00 101.969 kg [facility] BMI 2020-03-30 15:17:00 35.21 kg/m2 [facility] Heart rate 2020-03-30 13:46:00 95 /min [facility] Body temperature 2020-03-30 13:46:00 36.39 [facility] Oxygen saturation in 2020-03-30 13:46:00 97 /min [facility] of Arterial blood by [place] [employer] [facility] Systolic blood 2020-03-05 22:00:00 148 mm[Hg] Univer sity of pressure [facility] Diastolic blood 2020-03-05 22:00:00 78 mm[Hg] Unive rsity of pressure [facility] Heart rate 2020-03-05 22:00:00 76 /min [facility] Respiratory rate 2020-03-05 22:00:00 15 /min Univ ers[facility] Oxygen saturation in 2020-03-05 22:00:00 96 /min [facility] Arterial blood by [place] [employer] Pulse oxim[facility] [place] Body temperature 2020-03-05 19:42:00 36.61 [facility] Body height 2020-03-05 16:10:00 170.2 cm [facility] Body weight 2020-03-05 16:10:00 98.9 kg [facility] BMI 2020-03-05 16:10:00 34.15 kg/m2 [facility] Systolic blood 2019-11-14 16:05:00 109 mm[Hg] Univer sity of pressure [facility] Diastolic blood 2019-11-14 16:05:00 70 mm[Hg] Unive rsity of pressure [facility] Heart rate 2019-11-14 16:05:00 73 /min [facility] Oxygen saturation in 2019-11-14 16:05:00 99 /min [facility] Arterial blood by [place] [employer] Pulse oxim[facility] Body temperature 2019-11-14 16:04:00 36 [facility] Systolic blood 2019-11-07 16:58:00 149 mm[Hg] Univer sity of pressure [facility] Diastolic blood 2019-11-07 16:58:00 91 mm[Hg] Unive rsity of pressure [facility] Heart rate 2019-11-07 16:58:00 90 /min [facility] Body temperature 2019-11-07 16:58:00 36.11 [facility] Body weight 2019-11-07 16:58:00 87.272 kg [facility] BMI 2019-11-07 16:58:00 30.13 kg/m2 [facility] Oxygen saturation in 2019-11-07 16:58:00 99 /min [facility] Arterial blood by [facility] Pulse oxim[facility] Heart Rate 2020-08-12 23:15:00 [facility] Resp[facility] Rate 2020-08-12 23:15:00 [facility] Systolic (mm Hg) 2020-08-12 23:15:00 [facility] [place] Diastolic (mm Hg) 2020-08-12 23:15:00 [facility] [place] Temperature Oral (F) 2020-08-12 23:15:00 98.1 F [facility] Temperature Oral (F) 2020-08-12 19:20:00 98.0 F [facility] [place] Heart Rate 2020-08-12 19:20:00 [facility] [place] Respitory Rate 2020-08-12 19:20:00 [facility] [place] Systolic (mm Hg) 2020-08-12 19:20:00 [facility] Diastolic (mm Hg) 2020-08-12 19:20:00 [facility] [place] Respitory Rate 2020-08-12 19:00:00 [facility] Systolic (mm Hg) 2020-08-12 19:00:00 [facility] [place] Diastolic (mm Hg) 2020-08-12 19:00:00 [facility] [place] Temperature Oral (F) 2020-08-12 14:00:00 97.7 F [facility] Heart Rate 2020-08-12 14:00:00 [facility] Temperature Oral (F) 2020-08-10 06:00:00 98.3 F [facility] Heart Rate 2020-08-10 06:00:00 [facility] Respitory Rate 2020-08-10 06:00:00 [facility] Systolic (mm Hg) 2020-08-10 06:00:00 [facility] [place] Diastolic (mm Hg) 2020-08-10 06:00:00 [facility] [place] Temperature Oral (F) 2020-08-10 02:00:00 98.4 F [facility] Heart Rate 2020-08-10 02:00:00 [facility] [place] Respitory Rate 2020-08-10 02:00:00 [facility] Systolic (mm Hg) 2020-08-10 02:00:00 [facility] [place] Diastolic (mm Hg) 2020-08-10 02:00:00 [facility] [place] Temperature Oral (F) 2020-08-09 22:00:00 98.3 F [facility] [place] Heart Rate 2020-08-09 22:00:00 [facility] Respitory Rate 2020-08-09 22:00:00 [facility] [place] Systolic (mm Hg) 2020-08-09 22:00:00 [facility] [place] Diastolic (mm Hg) 2020-08-09 22:00:00 [facility] Height 2020-08-07 03:47:00 170.18 cm [facility] [place] Weight 2020-08-07 03:47:00 [facility] [place] BMI Calculated 2020-08-07 03:47:00 [facility] [place] Height 2020-08-06 18:59:00 152.4 cm [facility] BMI Calculated 2020-08-06 18:59:00 [facility] Weight 2020-08-06 18:59:00 [facility] Respitory Rate 2020-07-24 16:17:00 [facility] Systolic (mm Hg) 2020-07-24 16:17:00 [facility] [place] Diastolic (mm Hg) 2020-07-24 16:17:00 [facility] [place] Temperature Oral (F) 2020-07-24 16:17:00 98.0 F [facility] [place] Respitory Rate 2020-07-24 15:04:00 [facility] Systolic (mm Hg) 2020-07-24 15:04:00 [facility] [place] Diastolic (mm Hg) 2020-07-24 15:04:00 [facility] [place] Heart Rate 2020-07-24 15:04:00 [facility] Temperature Oral (F) 2020-07-24 15:04:00 97.9 F [facility] Height 2020-07-24 14:45:00 170.18 cm [facility] BMI Calculated 2020-07-24 14:45:00 [facility] [place] Weight 2020-07-24 14:45:00 [facility] [place] Heart Rate 2020-07-24 13:10:00 [facility] [place] Respitory Rate 2020-07-24 13:10:00 [facility] Systolic (mm Hg) 2020-07-24 13:10:00 [facility] [place] Diastolic (mm Hg) 2020-07-24 13:10:00 [facility] [place] Height 2020-07-24 12:55:00 170.18 cm [facility] BMI Calculated 2020-07-24 12:55:00 [facility] [place] Weight 2020-07-24 12:55:00 [facility] Heart Rate 2020-07-24 12:55:00 [facility] [place] Temperature Oral (F) 2020-07-24 12:55:00 98.2 F [facility] Heart Rate 2020-07-15 19:07:00 [facility] [place] Respitory Rate 2020-07-15 19:07:00 [facility] Systolic (mm Hg) 2020-07-15 19:07:00 [facility] [place] Diastolic (mm Hg) 2020-07-15 19:07:00 [facility] [place] Temperature Oral (F) 2020-07-15 17:00:00 98.1 F [facility] [place] Heart Rate 2020-07-15 17:00:00 [facility] Systolic (mm Hg) 2020-07-15 17:00:00 [facility] [place] Diastolic (mm Hg) 2020-07-15 17:00:00 [facility] [place] Respitory Rate 2020-07-15 17:00:00 [facility] Temperature Oral (F) 2020-07-15 13:00:00 98.3 F [facility] [place] Heart Rate 2020-07-15 13:00:00 [facility] Systolic (mm Hg) 2020-07-15 13:00:00 [facility] [place] Diastolic (mm Hg) 2020-07-15 13:00:00 [facility] [place] Temperature Oral (F) 2020-07-15 09:00:00 98.1 F [facility] [place] Respitory Rate 2020-07-15 09:00:00 [facility] [place] Height 2020-07-06 10:14:00 170.18 cm [facility] [place] BMI Calculated 2020-07-06 10:14:00 [facility] [place] Weight 2020-07-06 10:14:00 [facility] Systolic (mm Hg) 2020-05-21 15:01:00 [facility] [place] Diastolic (mm Hg) 2020-05-21 15:01:00 [facility] [place] Heart Rate 2020-05-21 15:01:00 [facility] [place] Respitory Rate 2020-05-21 15:01:00 [facility] Height 2020-05-21 13:15:00 170.18 cm [facility] [place] BMI Calculated 2020-05-21 13:15:00 [facility] Weight 2020-05-21 13:15:00 [facility] Systolic (mm Hg) 2020-05-21 13:15:00 [facility] [place] Diastolic (mm Hg) 2020-05-21 13:15:00 [facility] Heart Rate 2020-05-21 13:15:00 [facility] [place] Respitory Rate 2020-05-21 13:15:00 [facility] [place] Temperature Oral (F) 2020-05-21 13:15:00 98.5 F [facility] Systolic (mm Hg) 2020-03-23 14:05:00 [facility] [place] Diastolic (mm Hg) 2020-03-23 14:05:00 [facility] [place] Systolic (mm Hg) 2020-03-23 13:00:00 [facility] [place] Diastolic (mm Hg) 2020-03-23 13:00:00 [facility] [place] Temperature Oral (F) 2020-03-23 13:00:00 98.5 F [facility] Heart Rate 2020-03-23 13:00:00 [facility] Respitory Rate 2020-03-23 13:00:00 [facility] [place] Systolic (mm Hg) 2020-03-23 11:10:00 [facility] Diastolic (mm Hg) 2020-03-23 11:10:00 [facility] Respitory Rate 2020-03-23 11:10:00 [facility] [place] Heart Rate 2020-03-23 11:10:00 [facility] Temperature Oral (F) 2020-03-23 11:10:00 98.4 F [facility] [place] Respitory Rate 2020-03-23 09:42:00 [facility] Heart Rate 2020-03-23 09:42:00 [facility] Temperature Oral (F) 2020-03-23 08:46:00 98.3 F [facility] [place] Height 2020-03-23 05:39:00 170.18 cm [facility] [place] BMI Calculated 2020-03-23 05:39:00 [facility] [place] Weight 2020-03-23 05:39:00 [facility] [place] Systolic (mm Hg) 2020-02-03 23:19:00 [facility] [place] Diastolic (mm Hg) 2020-02-03 23:19:00 [facility] Respitory Rate 2020-02-03 23:19:00 [facility] Heart Rate 2020-02-03 23:19:00 [facility] Temperature Oral (F) 2020-02-03 23:19:00 98.6 F [facility] Systolic (mm Hg) 2020-02-03 22:04:00 [facility] [place] Diastolic (mm Hg) 2020-02-03 22:04:00 [facility] Respitory Rate 2020-02-03 22:04:00 [facility] [place] Heart Rate 2020-02-03 22:04:00 [facility] Systolic (mm Hg) 2020-02-03 20:14:00 [facility] [place] Diastolic (mm Hg) 2020-02-03 20:14:00 [facility] [place] Respitory Rate 2020-02-03 20:14:00 [facility] Heart Rate 2020-02-03 20:14:00 [facility] [place] Temperature Oral (F) 2020-02-03 20:14:00 98.5 F [facility] Height 2020-02-03 19:22:00 170.18 cm [facility] BMI Calculated 2020-02-03 19:22:00 [facility] Weight 2020-02-03 19:22:00 [facility] [place] Temperature Oral (F) 2020-02-03 19:22:00 99.0 F [facility] [place] Temperature Oral (F) 2019-11-05 18:00:00 98.3 F [facility] Heart Rate 2019-11-05 18:00:00 [facility] [place] Respitory Rate 2019-11-05 18:00:00 [facility] Systolic (mm Hg) 2019-11-05 18:00:00 [facility] [place] Diastolic (mm Hg) 2019-11-05 18:00:00 [facility] [place] Temperature Oral (F) 2019-11-05 14:00:00 98.1 F [facility] Heart Rate 2019-11-05 14:00:00 [facility] Respitory Rate 2019-11-05 14:00:00 [facility] [place] Systolic (mm Hg) 2019-11-05 14:00:00 [facility] Diastolic (mm Hg) 2019-11-05 14:00:00 [facility] [place] Respitory Rate 2019-11-05 12:36:00 [facility] Temperature Oral (F) 2019-11-05 10:00:00 98.0 F [facility] Heart Rate 2019-11-05 10:00:00 [facility] Systolic (mm Hg) 2019-11-05 10:00:00 [facility] [place] Diastolic (mm Hg) 2019-11-05 10:00:00 [facility] [place] Height 2019-10-29 07:23:00 170.18 cm [facility] Weight 2019-10-29 07:23:00 [facility] [place] BMI Calculated 2019-10-29 07:23:00 [facility] [place] Height 2019-10-29 01:03:00 170.18 cm [facility] [place] BMI Calculated 2019-10-29 01:03:00 [facility] [place] Weight 2019-10-29 01:03:00 [facility] [place] Temperature Oral (F) 2019-08-20 14:07:00 98.8 F [facility] [place] Heart Rate 2019-08-20 14:07:00 [facility] Respitory Rate 2019-08-20 14:07:00 [facility] [place] Systolic (mm Hg) 2019-08-20 14:07:00 [facility] Diastolic (mm Hg) 2019-08-20 14:07:00 [facility] [place] Systolic (mm Hg) 2019-08-20 12:15:00 [facility] Diastolic (mm Hg) 2019-08-20 12:15:00 [facility] Heart Rate 2019-08-20 12:15:00 [facility] [place] Temperature Oral (F) 2019-08-20 09:46:00 98.3 F [facility] [place] Heart Rate 2019-08-20 09:46:00 [facility] [place] Respitory Rate 2019-08-20 09:46:00 [facility] Systolic (mm Hg) 2019-08-20 09:46:00 [facility] [place] Diastolic (mm Hg) 2019-08-20 09:46:00 [facility] [place] Temperature Oral (F) 2019-08-20 06:02:00 98.5 F [facility] Respitory Rate 2019-08-20 06:02:00 [facility] Height 2019-08-14 22:12:00 175.26 cm [facility] [place] Weight 2019-08-14 22:12:00 [facility] BMI Calculated 2019-08-14 22:12:00 [facility] Respitory Rate 2019-04-08 17:36:00 [facility] [place] Systolic (mm Hg) 2019-04-08 17:36:00 [facility] Diastolic (mm Hg) 2019-04-08 17:36:00 [facility] [place] Temperature Oral (F) 2019-04-08 17:36:00 98.0 F [facility] Heart Rate 2019-04-08 17:36:00 [facility] [place] Respitory Rate 2019-04-08 13:23:00 [facility] Heart Rate 2019-04-08 13:23:00 [facility] Temperature Oral (F) 2019-04-08 13:23:00 98.1 F [facility] [place] Systolic (mm Hg) 2019-04-08 13:23:00 [facility] Diastolic (mm Hg) 2019-04-08 13:23:00 [facility] Systolic (mm Hg) 2019-04-08 08:40:00 [facility] Diastolic (mm Hg) 2019-04-08 08:40:00 [facility] Respitory Rate 2019-04-08 08:40:00 [facility] [place] Heart Rate 2019-04-08 08:40:00 [facility] [place] Temperature Oral (F) 2019-04-08 08:40:00 98.0 F [facility] Weight 2019-04-06 04:23:00 [facility] [place] BMI Calculated 2019-04-06 04:17:00 [facility] [place] Height 2019-04-06 04:17:00 167.64 cm [facility] Weight 2019-04-06 04:17:00 [facility] [place] Respitory Rate 2018-07-24 20:59:00 [facility] [place] Systolic (mm Hg) 2018-07-24 20:59:00 [facility] [place] Diastolic (mm Hg) 2018-07-24 20:59:00 [facility] Heart Rate 2018-07-24 20:59:00 [facility] Temperature Oral (F) 2018-07-24 20:59:00 98.2 F [facility] Temperature Oral (F) 2018-07-24 16:59:00 98.3 F [facility] [place] Heart Rate 2018-07-24 16:59:00 [facility] [place] Respitory Rate 2018-07-24 16:59:00 [facility] Systolic (mm Hg) 2018-07-24 16:59:00 [facility] Diastolic (mm Hg) 2018-07-24 16:59:00 [facility] [place] Systolic (mm Hg) 2018-07-24 16:33:00 [facility] [place] Diastolic (mm Hg) 2018-07-24 16:33:00 [facility] Temperature Oral (F) 2018-07-24 16:33:00 98.2 F [facility] [place] Respitory Rate 2018-07-24 16:33:00 [facility] [place] Heart Rate 2018-07-24 16:33:00 [facility] Weight 2018-07-22 11:03:00 [facility] [place] BMI Calculated 2018-07-22 11:03:00 [facility] [place] Height 2018-07-22 11:03:00 170.18 cm [facility] BMI Calculated 2018-07-22 01:54:00 [facility] [place] Height 2018-07-22 01:54:00 170.18 cm [facility] [place] Weight 2018-07-22 01:54:00 [facility] Respitory Rate 2018-07-21 02:35:00 [facility] [place] Temperature Oral (F) 2018-07-21 02:35:00 98.6 F [facility] [place] Systolic (mm Hg) 2018-07-21 02:35:00 [facility] [place] Diastolic (mm Hg) 2018-07-21 02:35:00 [facility] [place] Respitory Rate 2018-07-20 23:36:00 [facility] [place] Systolic (mm Hg) 2018-07-20 23:36:00 [facility] [place] Diastolic (mm Hg) 2018-07-20 23:36:00 [facility] Systolic (mm Hg) 2018-07-20 22:37:00 [facility] [place] Diastolic (mm Hg) 2018-07-20 22:37:00 [facility] [place] Respitory Rate 2018-07-20 22:37:00 [facility] [place] Heart Rate 2018-07-20 22:37:00 [facility] [place] Temperature Oral (F) 2018-07-20 22:37:00 97.7 F [facility] [place] Height 2018-07-20 22:37:00 170.18 cm [facility] BMI Calculated 2018-07-20 22:37:00 [facility] Weight 2018-07-20 22:37:00 [facility] [place] BMI Calculated 2018-05-23 15:20:00 [facility] Weight 2018-05-23 15:20:00 [facility] [place] Respitory Rate 2018-05-23 15:20:00 [facility] [place] Heart Rate 2018-05-23 15:20:00 [facility] Height 2018-05-23 15:20:00 170 cm [facility] [place] Systolic (mm Hg) 2018-05-23 15:20:00 [facility] [place] Diastolic (mm Hg) 2018-05-23 15:20:00 [facility] [place] Systolic (mm Hg) 2018-04-15 21:25:00 [facility] Diastolic (mm Hg) 2018-04-15 21:25:00 [facility] [place] Respitory Rate 2018-04-15 16:40:00 [facility] [place] Heart Rate 2018-04-15 16:40:00 [facility] Systolic (mm Hg) 2018-04-15 16:40:00 [place] [place] Diastolic (mm Hg) 2018-04-15 16:40:00 [facility] [place] Temperature Oral (F) 2018-04-15 16:40:00 98.2 F [facility] [place] Heart Rate 2018-04-15 13:15:00 [facility] [place] Temperature Oral (F) 2018-04-15 13:15:00 98.0 F [facility] [place] Systolic (mm Hg) 2018-04-15 13:15:00 Kojo [facility] [place] Diastolic (mm Hg) 2018-04-15 13:15:00 [facility] [place] Respitory Rate 2018-04-15 13:15:00 [facility] [place] Temperature Oral (F) 2018-04-15 09:31:00 98.2 F [facility] [place] Heart Rate 2018-04-15 09:31:00 [facility] [place] Respitory Rate 2018-04-15 09:31:00 [facility] [place] Weight 2018-04-15 07:53:00 [facility] [place] Weight 2018-04-14 23:25:00 [facility] [place] Height 2018-04-14 23:25:00 172.72 cm [facility] [place] BMI Calculated 2018-04-14 23:25:00 [facility] [place] Systolic (mm Hg) 2018-03-20 16:07:00 [place] Diastolic (mm Hg) 2018-03-20 16:07:00 [facility] [place] Respitory Rate 2018-03-20 16:07:00 [facility] [place] Heart Rate 2018-03-20 16:07:00 [facility] [place] Temperature Oral (F) 2018-03-20 16:07:00 98.4 F [facility] [place] Systolic (mm Hg) 2018-03-20 12:44:00 [place] Diastolic (mm Hg) 2018-03-20 12:44:00 [facility] [place] Respitory Rate 2018-03-20 12:44:00 [facility] [place] Heart Rate 2018-03-20 12:44:00 [facility] [place] Temperature Oral (F) 2018-03-20 12:44:00 98.3 F [facility] [place] Respitory Rate 2018-03-20 08:46:00 [facility] [place] Temperature Oral (F) 2018-03-20 08:46:00 98.3 F [facility] [place] Heart Rate 2018-03-20 08:46:00 [facility] [place] Systolic (mm Hg) 2018-03-20 08:46:00 [place] Diastolic (mm Hg) 2018-03-20 08:46:00 [facility] [place] BMI Calculated 2018-03-17 12:01:00 [facility] [place] Weight 2018-03-17 12:01:00 [facility] [place] Height 2018-03-17 12:01:00 167.64 cm [facility] [place] Weight 2018-03-17 07:27:00 [facility] [place] Temperature Oral (F) 2018-01-23 03:30:00 98.2 F [facility] [place] Respitory Rate 2018-01-23 03:30:00 [facility] [place] Systolic (mm Hg) 2018-01-23 03:30:00 [place] Diastolic (mm Hg) 2018-01-23 03:30:00 [facility] [place] Respitory Rate 2018-01-23 01:48:00 [facility] [place] Heart Rate 2018-01-23 01:48:00 [facility] [place] Systolic (mm Hg) 2018-01-23 01:48:00 [place] Diastolic (mm Hg) 2018-01-23 01:48:00 [facility] [place] Temperature Oral (F) 2018-01-23 00:14:00 98.2 F [facility] [place] Respitory Rate 2018-01-23 00:14:00 [facility] [place] Systolic (mm Hg) 2018-01-23 00:14:00 [place] Diastolic (mm Hg) 2018-01-23 00:14:00 [facility] [place] Heart Rate 2018-01-23 00:14:00 [facility] [place] BMI Calculated 2018-01-23 00:14:00 [facility] [place] Height 2018-01-23 00:14:00 165.1 cm [facility] [place] Weight 2018-01-23 00:14:00 [facility] [place] Systolic (mm Hg) 2017-12-20 12:31:00 [place] Diastolic (mm Hg) 2017-12-20 12:31:00 [facility] [place] Temperature Oral (F) 2017-12-20 12:31:00 98.0 F [facility] [place] Respitory Rate 2017-12-20 12:31:00 [facility] [place] Heart Rate 2017-12-20 12:31:00 [facility] [place] Systolic (mm Hg) 2017-12-20 05:00:00 [place] Diastolic (mm Hg) 2017-12-20 05:00:00 [facility] [place] Temperature Oral (F) 2017-12-20 05:00:00 98 F [facility] Heart Rate 2017-12-20 05:00:00 [facility] [place] Respitory Rate 2017-12-20 05:00:00 [place] Temperature Oral (F) 2017-12-20 01:00:00 97.6 F [facility] [place] Heart Rate 2017-12-20 01:00:00 [facility] [place] Systolic (mm Hg) 2017-12-20 01:00:00 [place] Diastolic (mm Hg) 2017-12-20 01:00:00 Mem [facility] [place] Respitory Rate 2017-12-20 01:00:00 Memmarie [place] BMI Calculated 2017-12-15 16:46:00 [facility] [place] Weight 2017-12-15 16:46:00 [facility] [place] Height 2017-12-15 16:46:00 170.18 cm [facility] [place] Height 2017-12-15 16:11:00 170.18 cm [facility] [place] Weight 2017-12-15 11:31:00 [facility] [place] Procedures Procedure Date / Time Performing Source Performed Clinician ME MYOCARDIUM PERFUSION STRESS AND 2021-04-01 [facility] REST 17:22:00 A [facility] MYOCARDIUM PERFUSION STRESS AND 2021-04-01 [facility] REST 17:22:00 A [facility] MYOCARDIUM PERFUSION STRESS AND 2021-04-01 Critical access hospital of REST 17:22:00 A [facility] MYOCARDIUM PERFUSION STRESS AND 2021-04-01 [facility] REST 17:22:00 [facility] PHOSPHORUS 2020-06-23 [facility] 10:46:00 [facility] MAGNESIUM 2020-06-23 [facility] 10:46:00 [facility] BASIC METABOLIC PANEL (NA, K, CL, 2020-06-23 [facility] CO2, GLUCOSE, BUN, CREATININE, CA) 10:46:00 [facility] EXTRA TUBE LAV 2020-06-23 Pam Louis [facility] 10:46:00 [facility] ECHO ROUTINE W/DOPPLER COLOR 2020-06-22 Aneglica Bob Un iversity of 17:29:39 [facility] MAGNESIUM 2020-06-21 [facility] of 09:15:00 [facility] BASIC METABOLIC PANEL (NA, K, CL, 2020-06-21 [facility], [facility] of CO2, GLUCOSE, BUN, CREATININE, CA) 09:15:00 [facility] AMMONIA, PLASMA 2020-06-21 [facility] of 03:42:00 [facility] TROPONIN I 2020-06-21 [facility], [facility] of 03:42:00 [facility] VITAMIN D, 25-OH 2020-06-21 [facility], [facility] of 03:42:00 [facility] COVID-19 (ID NOW RAPID TESTING) 2020-06-20 Quita Guzman Butler of 21:32:00 [facility] PHOSPHORUS 2020-06-20 [facility] of 20:00:00 [facility] LIPASE 2020-06-20 Cristo Seth Butler of 20:00:00 [facility] MAGNESIUM 2020-06-20 Quita Guzman [facility] of 20:00:00 [facility] FERRITIN SERUM 2020-06-20 [facility] of 20:00:00 [facility] TROPONIN I 2020-06-20 Seth Lemons Butler of 20:00:00 [facility] THYROID STIMULATING HORMONE 2020-06-20 [facility] versity of 20:00:00 [facility] COMP. METABOLIC PANEL (57569) 2020-06-20 Seth Lemons iversity of 20:00:00 [facility] DIFF CONSULT INTERPRETATION 2020-06-20 Angelica Bob Uni versity of 20:00:00 [facility] CBC WITH DIFF 2020-06-20 Seth Lemons of 20:00:00 [facility] PROTHROMBIN TIME / INR 2020-06-20 Seth Lemonsit y of 20:00:00 [facility] ACTIVATED PARTIAL THRMPLAS JAYSON 2020-06-20 Seth Lemons U niversity of 20:00:00 [facility] N-TERMINAL PRO-BNP 2020-06-20 Quita Guzman Butler of 20:00:00 [facility] XR CHEST 1 VW 2020-06-20 Seth Lemons of 19:49:02 [facility] EKG-12 LEAD 2020-06-20 Seth Lemons of 19:35:17 [facility] EKG-12 LEAD 2020-06-20 Seth Lemons Butler of 19:33:43 [facility] CONSENT/REFUSAL FOR DIAGNOSIS AND 2020-06-20 Doctor Raúl frias, [facility] 19:01:59 Melvina [facility] NOTICE OF PRIVACY PRACTICES 2020-06-20 Doctor Unassigned, U niversity of 19:01:30 Melvina [facility] AGREEMENTS AUTHORIZATIONS AND 2020-06-20 Doctor Unassoliverio, [facility] IRREVOCABLE ASSIGNMENTS (FORM 05:01:00 [facility] [place] ABDOMEN PELVIS W WO CONTRAST 2020-04-28 Benji Duvall [facility] 17:36:41 [facility] ASSIGNMENT OF BENEFITS 2020-04-28 Doctor Unassigned, Univer sity of 16:46:09 Melvina [facility] CONSENT/REFUSAL FOR DIAGNOSIS AND 2020-04-28 Doctor Raúl frias [facility] 16:45:14 Melvina [facility] EXTERNAL PROVIDER RECORDS 2020-04-23 Doctor Unassigned, Uni versity of 05:01:00 Melvina [facility] PHOSPHORUS 2020-03-30 Benji Duvall [facility] 11:08:00 [facility] MAGNESIUM 2020-03-30 Benji Duvall [facility] 11:08:00 [facility] BASIC METABOLIC PANEL (NA, K, CL, 2020-03-30 Tobias Duvall [facility] CO2, GLUCOSE, BUN, CREATININE, CA) 11:08:00 [facility] EXTRA TUBE LT. BLUE 2020-03-30 [facility] o f 11:08:00 Shakir [facility] PHOSPHORUS 2020-03-29 Benji Duvall [facility] 10:20:00 [facility] MAGNESIUM 2020-03-29 Benji Duvall [facility] 10:20:00 [facility] BASIC METABOLIC PANEL (NA, K, CL, 2020-03-29 Tobias Duvall [facility] CO2, GLUCOSE, BUN, CREATININE, CA) 10:20:00 [facility] CBC WITH DIFFERENTIAL 2020-03-29 Benji Duvall [facility] ity of 10:20:00 [facility] HEPATIC FUNCTION PANEL (32421) 2020-03-28 Med Medina U niversity of (ALB,T.PRO,BILI 18:42:00 [facility] T,BU/BC,ALT,AST,ALK PHOS) Branch PHOSPHORUS 2020-03-28 Benji Duvall Butler of 10:35:00 [facility] MAGNESIUM 2020-03-28 Benji Duvall Butler of 10:35:00 [facility] BASIC METABOLIC PANEL (NA, K, CL, 2020-03-28 Tobias Duvall [facility] CO2, GLUCOSE, BUN, CREATININE, CA) 10:35:00 [facility] CBC WITH DIFFERENTIAL 2020-03-28 Benji Duvall Univers ity of 10:35:00 [facility] CT ABDOMEN PELVIS W WO CONTRAST 2020-03-27 [facility] of 17:47:47 [facility] MAGNESIUM 2020-03-27 Benji Duvall [facility] 10:59:00 [facility] BASIC METABOLIC PANEL (NA, K, CL, 2020-03-27 Tobias Duvall [facility] CO2, GLUCOSE, BUN, CREATININE, CA) 10:59:00 [facility] CBC WITH DIFFERENTIAL 2020-03-27 Preston Evangelista Butler of 10:59:00 [facility] PROTHROMBIN TIME / INR 2020-03-27 [facility] 10:59:00 [facility] HEPATITIS B SURFACE ANTIBODY 2020-03-27 Tulio Antunez Un iversity of 10:59:00 [facility] HEPATITIS B SURFACE ANTIGEN 2020-03-27 Tulio Antunez Uni versity of 10:59:00 [facility] DISCLOSURE AND CONSENT, MEDICAL 2020-03-27 Doctor Mica escalera, [facility] AND SURGICAL PROCEDURES 05:01:00 Melvina [facility] / HEMOGRAM 2020-03-26 Carol [facility] of 21:56:00 [facility] PROTHROMBIN TIME / INR 2020-03-26 Benji Duvall Univer sity of 20:08:00 [facility] MAGNESIUM 2020-03-26 Aiden Gamino Butler of 10:27:00 [facility] BASIC METABOLIC PANEL (NA, K, CL, 2020-03-26 Aiden Gamino Butler of CO2, GLUCOSE, BUN, CREATININE, CA) 10:27:00 [facility] CBC WITH DIFFERENTIAL 2020-03-26 Preston Evangelista Butler of 10:27:00 [facility] TRANSFUSE PACKED RBC 2020-03-25 [facility] of 17:06:01 [facility] PREPARE PACKED RBC 2020-03-25 [facility] of 15:28:45 [facility] CANCER ANTIGEN-GI (CA 19-9) 2020-03-25 [facility] ersity of 15:28:00 [facility] AMYLASE 2020-03-25 [facility] of 15:28:00 [facility] LIPASE 2020-03-25 [facility] of 15:28:00 [facility] CARCINOEMBRYONIC ANTIGEN 2020-03-25 [facility] ity of 15:28:00 [facility] ALPHA FETOPROTEIN 2020-03-25 [facility] of 15:28:00 [facility] PHOSPHORUS 2020-03-25 [facility] 10:02:00 [facility] MAGNESIUM 2020-03-25 [facility] of 10:02:00 [facility] BASIC METABOLIC PANEL (NA, K, CL, 2020-03-25 [facility] CO2, GLUCOSE, BUN, CREATININE, CA) 10:02:00 [facility] PROFILE / HEMOGRAM 2020-03-25 [facility] of 10:02:00 [facility] PROFILE / HEMOGRAM 2020-03-25 [facility] of 03:27:00 [facility] POCT GLUCOSE (AUTOMATED) 2020-03-24 Angie Cleaning [facility] ity of 22:00:00 [facility] SURGICAL PATHOLOGY EXAM 2020-03-24 [facility] ty of 20:28:00 [facility] EGD (ENDO) 2020-03-24 [facility] of 20:03:13 [facility] ESOPHAGOGASTRODUODENOSCOPY 2020-03-24 [facility] rsity of 19:55:00 [facility] BLOOD CULTURE SCREEN 2020-03-24 Benji Duvall [facility] ty of 19:07:00 [facility] PROFILE / HEMOGRAM 2020-03-24 Hanny [facility] of 18:57:00 [facility] POCT GLUCOSE (AUTOMATED) 2020-03-24 Angie Cleaning [facility] ity of 16:59:00 [facility] XR CHEST 1 VW 2020-03-24 Benji Duvall [facility] 15:48:00 [facility] COVID-19 (ID NOW RAPID TESTING) 2020-03-24 Shelley Aguirre [facility] of 15:20:00 [facility] PHOSPHORUS 2020-03-24 Hanny [facility] of 14:09:00 [facility] MAGNESIUM 2020-03-24 Hanny [facility] of 14:09:00 [facility] COMP. METABOLIC PANEL (65246) 2020-03-24 Preston Evangelista Un iversity of 14:09:00 Louis [facility] BODY FLUID DIRECT COUNT 2020-03-24 Villatoro, [facility] ty of 13:07:00 [facility] PROFILE / HEMOGRAM 2020-03-24 [facility] of 12:43:00 [facility] TRANSFUSE PACKED RBC 2020-03-24 [facility] of 12:06:02 [facility] CT ANGIOGRAM ABDOMEN/PELVIS 2020-03-24 [facility] versity of 10:53:16 [facility] PROFILE / HEMOGRAM 2020-03-24 [facility] 07:18:00 [facility] TRANSFERRIN 2020-03-24 [facility] of 00:55:00 [facility] FERRITIN SERUM 2020-03-24 [facility] of 00:54:00 [facility] IRON 2020-03-24 [facility] of 00:54:00 [facility] TOTAL IRON BINDING CAPACITY 2020-03-24 [facility] versity of 00:54:00 [facility] PROFILE / HEMOGRAM 2020-03-24 [facility] 00:54:00 [facility] HEMOCHROMATOSIS(HFE)3 MUTATION 2020-03-24 [facility] of 00:54:00 [facility] PREPARE PACKED RBC 2020-03-23 [facility] of 21:26:21 [facility] BODY FLUID DIRECT COUNT 2020-03-23 Villatoro, [facility] ty of 20:46:00 [facility] BODY FLUID 2020-03-[address] [facility] of CULTURE(AEROBIC/ANAEROBIC) 20:46:00 [facility] CT THORAX WO CONTRAST 2020-03-23 Carol [facility] of 20:20:08 [facility] CT ABDOMEN PELVIS WO CONTRAST 2020-03-23 Med Medina iversity of 20:14:32 [facility] HB ABO GROUPING 2020-03-23 CritzPreston Butler of 20:10:00 Louis [facility] COMP. METABOLIC PANEL (34077) 2020-03-23 Lew Daniel U niversity of 17:34:00 [facility] CBC WITH DIFFERENTIAL 2020-03-23 Lew Danielit y of 17:34:00 [facility] PROTHROMBIN TIME / INR 2020-03-23 Lew Danieli ty of 17:34:00 [facility] ACTIVATED PARTIAL THRMPLAS JAYSON 2020-03-23 Lew Daniel Butler of 17:34:00 [facility] FIBRINOGEN 2020-03-23 Melodie Danielshua Butler of 17:34:00 [facility] POTASSIUM SERUM 2020-03-05 Speedy Ramirez Butler of 16:48:00 [facility] POCT GLUCOSE (AUTOMATED) 2020-03-05 Teodora Merrill ity of 16:25:00 [facility] DAY [facility] 2020-03-05 Doctor Pamela, [facility] rsity of 05:01:00 Melvina [facility] XR CHEST 2 VW 2019-06-17 EsdrasAdilia brito [facility] 19:22:05 A [facility] PATIENT FINANCIAL POLICY 2019-06-17 Doctor Pamela, [facility] 19:01:22 Melvina [facility] NO SHOW OR MISSED APPOINTMENT 2019-06-17 Doctor Pamela, [facility] POLICY ACKNOWLEDGEMENT 19:01:10 Melvina [facility] TRANSPLANT/EXT PROVIDER PROCEDURE 2019-05-09 Doctor Raúl frias [facility] 05:01:00 Melvina [facility] Dialysis access site care Memori al [place] Knee maneuver [facility] Shoulder manipulation [facility] Encounters Start End Encounter Admission Attending Care Care Encounter Source Date/Time Date/Time Type Type Clinicians Facility Department ID 2021-08-06 Emergency [facility] [id number] Univers 17:13:07 ity [facility] 2021-08-06 Outpatient Adalberto SHARIF [facility] LELO [id number] Univers 10:57:39 OMID lam [facility] 2021-08-05 Outpatient R DESIRAE [facility] DSKelly [id number] Univers 21:35:24 TEODORA lam [facility] 2019-04-05 Inpatient E [facility] [id number] [facility] L 20:14:00 2019-04-05 [facility] [id number] [facility] 18:31:48 2021-08-02 2021-08-02 [facility] [id number] Univers 11:53:00 23:59:00 Encounter Pat A RODNEY [id number] ity of [facility] [id number] [place] as [id number] [address] 2021-08-02 2021-08-02 Outpatient [facility] ACO [id number] Univers 00:00:00 00:00:00 ADILIA ity o f [facility] 2021-08-02 2021-08-[address] [facility] [id number] Univers 00:00:00 00:00:00 Adilia Clayton MULTISPEC [id number] ity [id number] [id number] [address] [facility] 2021-07-30 2021-07-[address] [facility] [id number] Univers 00:00:00 00:00:00 Adilia Clayton MULTISPEC [id number] [id number] [id number] [address] [facility] 2021-07-28 2021-07-28 [facility] [id number] Univers 12:38:00 23:59:00 Encounter Pat A RODNEY [id number] ity of [facility] [id number] [place] as [id number] [address] 2021-07-28 2021-07-28 Outpatient R [facility] ACO [id number] Univers 00:00:00 00:00:00 ity of [facility] 2021-07-09 2021-07-09 Letter [facility] [id number] Univers 00:00:00 00:00:00 (Out) Adilia Clayton MULTISPEC [id number] ity [id number] [id number] [facility] AND [place] [address] [facility] 2021-04-22 2021-04-22 Time Study Technologist [facility] UNIVERSIT [id number] Univers 11:34:18 11:49:18 Visit [facility] [id number] ity of CL[place]ICS [id number] [id number] [facility] [address] 2021-04-22 2021-04-22 Office [facility] [id number] 10:30:14 11:33:56 Visit [facility] [id number] CLINICS [id number] [id number] [facility] 2021-04-22 2021-04-22 Office [facility] [id number] Univers 10:30:14 11:33:56 Visit [facility] [id number] i ty of CL[place]ICS [id number] [id number] [facility] [address] 2021-04-22 2021-04-[address] [facility] [id number] Univers 10:45:00 10:45:00 TEODORA [facility] 2021-04-22 2021-04-[address] [facility] [id number] Univers 10:00:00 10:00:00 TEODORA [id number] [facility] 2021-04-21 2021-04-[address] [facility] [id number] Univers 00:00:00 00:00:00 Adilia Clayton MULTISPEC [id number] ity [id number] [id number] [facility] [address] [facility] 2021-04-21 2021-04-[address] [facility] [id number] Univers 00:00:00 00:00:00 Pat A MULTISPEC [id number] ity of IALTY [id number] [facility] C[facility] [id number] [facility] [address] [facility] 2021-04-20 2021-04-[address] [facility] [id number] Univers 00:00:00 00:00:00 Pat A MULTISPEC [id number] ity of IALTY [id number] [facility] CENTER [id number] [facility] [address] [facility] 2021-04-07 2021-04-07 [facility] [id number] Univers 11:37:00 23:59:00 Encounter Pat A RODNEY [id number] ity of [facility] [id number] [place] as [id number] [facility] [address] 2021-04-07 2021-04-07 Outpatient R [facility] [id number] Univers 00:00:00 00:00:00 PAT ity o f [facility] 2021-04-01 2021-04-01 [facility] [id number] Univers 10:38:32 23:59:00 Encounter Pat A SPECIALTY [id number] ity of CARE [id number] [facility] CENTER AT [id number] Wy mario [facility] 805 [facility] 2021-04-01 2021-04-01 Outpatient [facility] [id number] Univers 12:00:00 12:00:00 PAT ity o f [facility] 2021-04-01 2021-04-01 [facility] 1.2.614.018 [id number] Univers 10:37:49 10:37:49 Encounter Pat A SPECIALTY 350.1.13.10 it[place] [phone] Wy mario READ 805 [facility] 2021-04-01 2021-04-01 [facility] 1.2.396.833 [id number] 7482 Univers 10:37:17 10:37:17 Encounter Pat A SPECIALTY 350.1.13.10 it[place] [phone] Wy mario READ [address] [place] [address] 2021-04-01 2021-04-01 [facility] 1.2.243.743 [id number] 7480 Univers 10:36:10 10:36:10 Encounter Pat A SPECIALTY 350.1.13.10 it[place] [phone] Wy mario READ [address] [place] [address] 2021-03-29 2021-03-29 Telephone Janay [facility] 1.2.840.114 [id number] Univers 00:00:00 00:00:00 Dionne carballo MULTISPEC 350.1.13.10 it[place] [phone] [facility] [address] [facility] 2021-03-25 2021-03-25 Outpatient [facility] [id number] Univers 12:00:00 12:00:00 PAT ity o f [facility] 2021-03-25 2021-03-25 Outpatient R [facility] [id number] Q-20 Univers 11:30:00 11:30:00 PAT [id number] ity o f [facility] 2021-03-25 2021-03-25 Abstract Gómez-Jef [facility] 1.2.840.114 [id number] Univers 00:00:00 00:00:00 Dionne carballo MULTISPEC 350.1.13.10 [place] [phone] [facility] [address] [facility] 2021-03-16 2021-03-16 Outpatient R [facility] [id number] Univers 10:00:00 10:00:00 PAT ity o [facility] 2021-02-19 2021-02-[address] [facility] 1.2.840.114 [id number] Univers 00:00:00 00:00:00 Pat A MULTISPEC 350.1.13.10 ity of IALTY 4.2.7.2.686 [facility] [phone] [address] [facility] 2021-02-18 2021-02-18 Outpatient R [facility] [id number] Univers 11:00:00 11:00:00 PAT ity o [facility] 2021-02-18 2021-02-18 Outpatient R [facility] [id number] Q-20 Univers 00:00:00 00:00:00 PAT [id number] ity o [facility] 2021-02-03 2021-02-[address] [facility] 1.2.731.888 [id number] Univers 00:00:00 00:00:00 Pat A MULTISPEC 350.1.13.10 ity of IALTY 4.2.7.2.686 [facility] [phone] [address] [facility] 2021-01-21 2021-01-21 Outpatient R [facility] [id number] Univers 08:00:00 08:00:00 PAT ity o [facility] 2021-01-08 2021-01-[address] [facility] 1.2.840.114 [id number] Univers 00:00:00 00:00:00 (Out) Pat A MULTISPEC 350.1.13.10 ity of IALTY 4.2.7.2.686 [facility] [place] [id number] [facility] [address] [facility] 2021-01-06 2021-01-[address] [facility] 1.2.840.114 [id number] Univers 00:00:00 00:00:00 Pat A MULTISPEC 350.1.13.10 ity of IALTY 4.2.7.2.686 [facility] [phone] [address] [facility] 2020-12-18 2020-12-[address] [facility] 1.2.840.114 [id number] Univers 00:00:00 00:00:00 Pat A MULTISPEC 350.1.13.10 ity of IALTY 4.2.7.2.686 [facility] [phone] [address] [facility] 2020-12-17 2020-12-17 Outpatient R [facility] [id number] Q-20 Univers 11:30:00 11:30:00 PAT [id number] ity o [facility] 2020-12-17 2020-12-17 Outpatient R [facility] [id number] Univers 08:00:00 08:00:00 PAT ity o [facility] 2020-12-01 2020-12-[address] [facility] 1.2.840.114 [id number] Univers 00:00:00 00:00:00 Pat A MULTISPEC 350.1.13.10 ity of IALTY 4.2.7.2.686 [facility] [phone] [address] [facility] 2020-11-12 2020-11-[address] [facility] 1.2.840.114 [id number] Univers 00:00:00 00:00:00 Pat A MULTISPEC 350.1.13.10 ity of IALTY 4.2.7.2.686 [facility] [phone] [address] [facility] 2020-11-12 2020-11-[address] [facility] 1.2.943.666 [id number] [id number] Univers 00:00:00 00:00:00 Pat A MULTISPEC 350.1.13.10 ity of IALTY 4.2.7.2.686 [facility] [id number] [facility] [address] [facility] 2020-10-30 2020-10-30 Hospital Esdras YESENIA 1.2.662.630 [id number] Univers 14:23:00 23:59:00 Encounter Adilia Clayton RODNEY 350.1.13.10 ity of [facility] 4.2.7.2.686 [place] [phone] [place] [address] Branch 2020-10-30 2020-10-30 Out[facility] [id number] Univers 00:00:00 00:00:00 PAT ity o f [facility] 2020-08-28 2020-08-[address] [facility] 1.2.800.696 [id number] Univers 00:00:00 00:00:00 Pat Forrest MULTISPEC 350.1.13.10 ity [facility] 4.2.7.2.686 [facility] CENTER [phone] [address] [facility] 2020-08-06 2020-08-13 Inpatient nullFlavo [facility] [id number] [id number] Memoria 18:41:30 00:50:00 adalberto Adames [facility] 2020-08-06 2020-08-06 Inpatient E [facility] MED 7512 [facility] 20:29:00 18:33:00 2020-07-27 2020-07-27 Outpatient R CHELA JOHN [facility] [id number] 0Q-20 Univers 14:30:00 14:30:00 [id number] ity [facility] 2020-07-27 2020-07-27 Outpatient R CHELA [facility] [id number] Univers 14:30:00 14:30:00 ity [facility] 2020-07-24 2020-07-24 Emergency [facility] 77464 30161 Memoria 12:53:57 16:22:00 adalberto Chatterjee [facility] 2020-07-24 2020-07-24 Emergency E MHBL MHBL 7511 MHBL 07:53:00 07:53:00 2020-07-06 2020-07-15 Inpatient nullFlavo [facility] 77923 79365 Memoria 10:06:46 22:00:00 r Marlo 10 l [facility] 2020-07-06 2020-07-06 Inpatient E [facility] MED 7510 MHBL 08:50:00 05:06:00 2020-06-24 2020-06-24 Transition Linda Green 1.2.840.114 [id number] Univers 00:00:00 00:00:00 of Care Jair Clayton Davila 350.1.13.10 ity of [place] 4.2.7.2.686 Tai s [phone] [facility] 403 [address] 2020-06-20 2020-06-23 [facility] Quita Guzman 1.2.840.1 14 [id number] Univers 14:27:00 18:40:00 Encounter Pam Louis 350.1.13.10 ity of [facility] 4.2.7.2.686 [place] [id number] [facility] 094 Branch 2020-06-12 2020-06-12 Outpatient R [facility] [id number] -20 Univers 13:15:00 13:15:00 ity of [facility] 2020-05-21 2020-05-21 Emergency [facility] [id number] Memoria 13:09:59 15:59:00 adalberto Sellers 09 l [facility] 2020-05-21 2020-05-21 Emergency E MHBL MHBL 7509 MHBL 08:09:00 08:09:00 2020-05-19 2020-05-19 Outpatient R [facility] [id number] -20 Univers 14:15:00 14:15:00 [id number] ity of [facility] 2020-05-18 2020-05-18 Outpatient R [facility] [id number] -20 Univers 13:15:00 13:15:00 ity of [facility] 2020-05-13 2020-05-13 Juan Luis Sharif [facility] 1.2.320.158 [id number] Univers 00:00:00 00:00:00 Management Omid HEMPHILL 350.1.13.10 ity of SCIENCES 4.2.7.2.686 [place] as BLDG [phone] [facility] 020 Branch 2020-05-13 2020-05-13 Telephone Chela [facility] 1.2.840.114 [id number] Univers 00:00:00 00:00:00 Winsons SPECIALTY 350.1.13.10 it[place] C[place] [phone] Wy mario READ 072 [facility] 2020-05-01 2020-05-01 [facility] 1.2.742.015 [id number] Univers 00:00:00 00:00:00 Pat Forrest MULTISPEC 350.1.13.10 it[place].2.[place] [id number] [facility] AND STOCK [address] [facility] 2020-04-28 2020-04-28 [facility] 1.2.840.114 [id number] Univers 11:00:00 23:59:00 Encounter Benji Ulrich SPECIALTY 350.1.13.10 ity of CARE 4.2.7.2.686 [facility] AT [phone] Wy mario READ 801 [facility] 2020-04-28 2020-04-28 Outpatient R CHELA [facility] [id number] Univers 15:30:00 15:30:00 ity of [facility] 2020-04-28 2020-04-[address] [facility] [id number] 20Q-20 Univers 11:00:00 11:00:00 BENJI [id number] ity of [facility] 2020-04-28 2020-04-28 [facility] 1.2.840.114 [id number] Univers 07:00:15 07:30:15 ne Visit Fedeestela SPECIALTY 350.1.13.10 it[place] C[place] [phone] Wy mario READ [address] [place] [address] 2020-04-23 2020-04-23 Orders Doctor PATTERSON 1.2.840.114 [id number] Univers 00:00:00 00:00:00 Only Unassigned, RODNEY 350.1.13.10 ity of [place] [facility] 4.2.7.2.686 [place] as [phone] [facility] 009 Branch 2020-04-21 2020-04-21 Telephone [facility] 1.2.362.984 [id number] Univers 00:00:00 00:00:00 Teodora SPECIALTY 350.1.13.10 it[place] C[place] [phone] Wy mario [address] [facility] 2020-04-06 2020-04-[address] [facility] 1.2.134.588 [id number] [id number] Univers 00:00:00 00:00:00 Adilia Clayton MULTISPEC 350.1.13.10 it[place].2.[place].2.[place] [phone] [facility] AND [address] [facility] 2020-04-01 2020-04-01 Transition Linda Green 1.2.840.114 [id number] Univers 00:00:00 00:00:00 of Care Jair Davila 350.1.13.10 ity of [place] 4.2.7.2.686 [place] [id number] [facility] 403 [address] 2020-03-23 2020-03-30 Inpatient [facility] STX [id number] 2543 Univers 12:01:00 16:00:00 RUPAK ity of [facility] 2020-03-23 2020-03-30 [facility] Janee Cleaning 1.2.840.114 [id number] Univers 12:01:00 16:00:00 Encounter ana Shakir Terrazas 350.1.13.10 ity of [facility] 4.2.7.2.686 [place] [phone] [facility] 092 [address] 2020-03-30 2020-03-30 Telephone [facility] 1.2.258.355 [id number] Univers 00:00:00 00:00:00 Teodora MULTISPEC 350.1.13.10 it[place].2.[place].2.[place] [phone] [address] [facility] 2020-03-30 2020-03-30 YESENIA Espinoza 1.2.713.626 [id number] [id number] Univers 00:00:00 00:00:00 Management Anna TERRAZAS 350.1.13.10 ity [facility] 4.2.7.2.686 [place] Neela [phone] [facility] [address] 2020-03-23 2020-03-23 Emergency [facility] [id number] Memoria 05:18:16 15:31:00 r [place] 08 l [facility] 2020-03-23 2020-03-23 Emergency E MHBL MHBL 7508 MHBL 00:18:00 00:18:00 2020-03-17 2020-03-17 [facility] YESENIA Eldridge 1.2.840.114 [id number] Univers 09:23:34 23:59:00 Encounter Ramses RODNEY 350.1.13.10 ity of [facility] 4.2.7.2.686 [place] as [phone] [facility] [address] 2020-03-13 2020-03-13 Case [facility] 1.2.733.900 [id number] 7038 Univers 00:00:00 00:00:00 Management Teodora Mauricio HEALTH 350.1.13.10 it[place] of CLINICS [place].2.[place].2.[place] [id number] [address] 2020-03-12 2020-03-12 Outpatient [facility] [id number] -[id number] Univers 13:30:00 13:30:00 TEODORA [id number] ity of [facility] 2020-03-12 2020-03-12 Outpatient R [facility] [id number] Univers 13:30:00 13:30:00 TEODORA ity of [facility] 2020-03-12 2020-03-12 Telemedici [facility] 1.2.840.114 [id number] Univers 12:21:58 12:51:58 ne Visit Teodora Mauricio HEALTH 350.1.13.10 ity of CLINICS 4.2.7.2.686 [place] [id number] [address] 2020-03-05 2020-03-05 [facility] Janee Merrill 1.2.840.114 [id number] Univers 10:50:00 17:31:00 Encounter Teodora Alamo 350.1.13.10 ity of Hospital 4.2.7.2.686 [place] as [phone] [facility] [address] 2020-03-05 2020-03-05 Orders Doctor YESENIA 1.2.840.114 [id number] Univers 00:00:00 00:00:00 Only Unassigned, RODNEY 350.1.13.10 ity of [place] [facility] 4.2.7.2.686 [place] as [phone] [facility] 009 [address] 2020-03-04 2020-03-04 Laboratory Only, Adc Test [facility] 1.2.840. 114 [id number] Univers 15:20:13 15:35:13 Only Teodora Merrill 350.1.13.10 ity of [place].2.7.2.686 [place] [phone] Wy dical [facility] 353 [facility] 2020-03-04 2020-03-04 Outpatient R [facility] [id number] -20 Univers 15:00:00 15:00:00 [id number] ity [facility] 2020-03-04 2020-03-[address] [facility] [id number] Univers 15:00:00 15:00:00 [facility] 2020-02-13 2020-02-13 Juan Luis Johnson [facility] 1.2.840.114 [id number] Univers 00:00:00 00:00:00 Management Jisha MULTISPEC 350.1.13.10 it[place] of [place].2.7.2.[place] [phone] [facility] AND STOCK [address] [facility] 2020-02-03 2020-02-03 Emergency [facility] [id number] [id number] Memoria 19:07:14 23:44:00 r [place] 07 l [facility] 2020-02-03 2020-02-03 Emergency E MHBL MHBL 7507 MHBL 14:07:00 14:07:00 2020-01-22 2020-01-22 Abstract [facility] 1.2.824.266 [id number] Univers 00:00:00 00:00:00 Adilia Clayton MULTISPEC 350.1.13.10 it[place] of [place].2.[place].2.[place] [phone] [address] [facility] 2020-01-08 2020-01-08 Hospital YESENIA Eldridge 1.2.840.114 [id number] Univers 11:14:48 23:59:00 Encounter Ramses TERRAZAS 350.1.13.10 ity of HOSPITAL 4.2.7.2.686 [place] [phone] [place] [address] Branch 2020-01-08 2020-01-08 Outpatient [facility] ACO 1026 [id number] Univers 00:00:00 00:00:00 RAMSES lam o f [facility] 2019-12-19 2019-12-19 Abstract [facility] 1.2.348.161 [id number] Univers 00:00:00 00:00:00 Adilia Clayton MULTISPEC 350.1.13.10 ity of IALTY 4.2.7.2.686 [facility] [place] [id number] [address] [facility] 2019-12-18 2019-12-18 Telephone [facility] 1.2.309.450 [id number] Univers 00:00:00 00:00:00 Clayton MULTISPEC 350.1.13.10 ity of IALTY 4.2.7.2.686 [facility] [place] [id number] [address] [facility] 2019-12-13 2019-12-13 [facility] 1.2.355.149 [id number] 4389 Univers 00:00:00 00:00:00 Teodora SPECIALTY 350.1.13.10 ity of CARE 4.2.7.2.686 [facility] [place] AT [phone] Wy mario [address] 2019-12-13 2019-12-13 Case [facility] 1.2.840.114 [id number] Univers 00:00:00 00:00:00 Management Teodora MULTISPEC 350.1.13.10 ity of IALTY 4.2.7.2.686 [facility] [phone] [address] [facility] 2019-12-10 2019-12-10 Case [facility] 1.2.840.114 [id number] Univers 00:00:00 00:00:00 Management Teodora MULTISPEC 350.1.13.10 it[place].2.7.2.[place] [phone] [address] [facility] 2019-12-10 2019-12-[address] [facility] 1.2.840.114 [id number] Univers 00:00:00 00:00:00 (Out) Pat A MULTISPEC 350.1.13.10 ity of IALTY 4.2.7.2.686 [facility] [phone] [address] [facility] 2019-12-10 2019-12-[address] [facility] 1.2.015.874 [id number] 5674 Univers 00:00:00 00:00:00 Pat A MULTISPEC 350.1.13.10 ity of IALTY 4.2.7.2.686 [facility] [phone] [address] [facility] 2019-12-10 2019-12-[address] [facility] 1.2.840.114 [id number] Univers 00:00:00 00:00:00 Pat A MULTISPEC 350.1.13.10 ity of IALTY 4.2.7.2.686 [facility] [phone] [address] [facility] 2019-12-10 2019-12-[address] [facility] 1.2.840.114 [id number] Univers 00:00:00 00:00:00 Pat A MULTISPEC 350.1.13.10 ity of IALTY 4.2.7.2.686 [facility] [phone] [address] [facility] 2019-12-10 2019-12-[address] [facility] 1.2.840.114 [id number] Univers 00:00:00 00:00:00 Pat A MULTISPEC 350.1.13.10 it[place] of [place].2.7.2.[place] [phone] [address] [facility] 2019-12-10 2019-12-10 Telephone [facility] 1.2.135.936 [id number] 5825 Univers 00:00:00 00:00:[address] [facility] 350.1.13.10 it[place] of [place].2.7.2.[place] [id number] [address] [facility] 2019-11-19 2019-11-19 Telephone [facility] 1.2.196.576 [id number] Univers 00:00:00 00:00:00 Teodora MULTISPEC 350.1.13.10 ity of [place].2.7.2.[place] [id number] [address] [facility] 2019-11-14 2019-11-14 Office Teodora Merrill [facility] 1.2.840.114 [id number] Univers 09:07:17 10:35:09 Visit Adilia Olsen MULTISPEC 350.1.13 .10 ity of IALTY 4.2.7.2.686 [facility] [phone] [address] [facility] 2019-11-07 2019-11-07 Office BlackAngie gates [facility] 1.2. 840.114 [id number] Univers 09:48:36 16:20:31 Visit Adilia Olsen MULTISPEC 350.1.13 .10 ity of [place]2.7.2.[place] [phone] [address] [facility] 2019-10-29 2019-11-06 Inpatient [facility] [id number] Memoria 00:57:20 02:15:00 adalberto [place] 06 l [facility] 2019-10-30 2019-10-28 Inpatient E [facility] MED 7506 MHBL 14:55:00 23:23:00 2019-08-16 2019-08-20 [facility] 47[facility] [id number] Memoria 00:36:00 19:40:00 adalberto Sellers 10 l [facility] 2019-08-15 2019-08-14 Inpatient U [facility] MED 9310 MHBL 18:36:00 15:56:00 2019-07-08 2019-07-08 Committee [facility] 1.2.328.000 [id number] Univers 00:00:00 00:00:00 Review Teodora MULTISPEC 350.1.13.10 ity of IALTY 4.2.7.2.686 [facility] [place] [phone] [facility] [address] DIABETES [facility] 2019-07-08 2019-07-[address] [facility] 1.2.228.656 [id number] Univers 00:00:00 00:00:00 Adilia Clayton MULTISPEC 350.1.13.10 ity of IALTY 4.2.7.2.686 [facility] [place] [id number] [address] DIABETES [facility] 2019-06-20 2019-06-[address] [facility] 1.2.840.114 [id number] Univers 00:00:00 00:00:00 Adilia Clayton MULTISPEC 350.1.13.10 ity of IALTY 4.2.7.2.686 [facility] [place] [id number] [address] DIABETES [facility] 2019-06-17 2019-06-17 [facility] 1.2.672.786 [id number] Univers 14:03:07 23:59:00 Encounter Adilia Trejo 350.1.13.10 ity of [place] 4.2.7.2.686 [facility] Rousseau [id number] [facility] 8[address] 2019-06-17 2019-06-17 Orders Doctor YESENIA 1.2.840.114 [id number] Univers 00:00:00 00:00:00 Only Unassigned, RODNEY 350.1.13.10 ity of [place] [facility] 4.2.7.2.686 [place] [id number] [facility] 00[address] 2019-06-17 2019-06-[address] [facility] 1.2.840.114 [id number] Univers 00:00:00 00:00:00 Adilia Clayton MULTISPEC 350.1.13.10 ity of IALTY 4.2.7.2.686 [facility] [place] [id number] [facility] [address] DIABETES [facility] 2019-05-23 2019-05-[address] [facility] 1.2.840.114 [id number] Univers 00:00:00 00:00:00 Pat A MULTISPEC 350.1.13.10 ity of [place] 4.2.7.2.686 [facility] [place] [id number] [facility] [address] [facility] 2019-05-21 2019-05-[address] [facility] 1.2.840.114 [id number] Univers 00:00:00 00:00:00 Pat A MULTISPEC 350.1.13.10 ity of IALTY 4.2.7.2.686 [facility] [place] [phone] [address] DIABETES [facility] 2019-05-09 2019-05-09 Orders Doctor YESENIA 1.2.840.114 [id number] Univers 00:00:00 00:00:00 Only Unassigned, RODNEY 350.1.13.10 ity of [place] [facility] 4.2.7.2.686 [place] as [phone] [facility] [address] 2019-04-06 2019-04-08 [facility] [id number] Memoria 01:14:00 21:53:00 [facility] 2018-10-17 2018-10-17 Outpatient [facility] [id number] Univers 00:00:00 23:59:00 RAMSES valdes [facility] 2018-07-22 2018-07-24 Inpatient [facility] 40893 [id number] Memoria 01:45:00 23:05:00 adalberto [place] 05 [facility] 2018-07-20 2018-07-21 Emergency [facility] 25096 [id number] Memoria 22:20:00 02:38:00 adalberto [place] 04 [facility] 2018-05-23 2018-06-22 OP nullFlavo Transplant [id number] Memoria 14:47:00 04:59:00 Transplant r [place] 00 l [facility] 2018-04-14 2018-04-15 Observatio [facility] 4647 [id number] Memoria 23:17:00 21:55:00 n r [place] 03 l [facility] 2018-03-17 2018-03-20 Inpatient [facility] 40346 [id number] Memoria 07:25:00 22:12:00 r [place] 02 [facility] 2018-01-22 2018-01-23 Emergency [facility] [id number] Memoria 23:36:00 03:58:00 r [place] 01 [facility] 2017-12-15 2017-12-20 Inpatient [place] [id number] Memoria 11:29:00 18:55:00 r [place] 00 [facility] Results Test Description Test Time Test Comments Results Result [facility] e Comments NM MYOCARDIUM 2021-03-10 1. No [...] 72mLEjection fraction rest: 68%End-diastolic volume at rest: [id number]. No evidence of myocardial ischemia or infarction.2. Normal left ventricular function and motion. Preliminary Report Dictated by Resident: Juany Olivares MD., have reviewed this study and agree with theabove report. CHEM PANEL 79 [facility] 4 [place] 09:42:00 CHEM PANEL 21 [facility] 4 [place] 09:42:00 CHEM PANEL 7.93 [facility] 4 [place] 09:42:00 CHEM PANEL 139 [facility] 4 [place] 09:42:00 CHEM PANEL 3.2 [facility] 4 [place] 09:42:00 CHEM PANEL 104 [facility] 4 [place] 09:42:00 CHEM PANEL 27 [facility] 4 [place] 09:42:00 CHEM PANEL 8.8 [facility] 4 [place] 09:42:00 CHEM PANEL 2020-11-0 11.2 [facility] 4 [place] 09:42:00 CHEM PANEL 2020-11-0 7 [facility] 4 [place] 09:42:00 HEMATOLOGY 2020-11-0 4.7 [facility] 4 [place] 09:42:00 HEMATOLOGY 2020-11-0 1.2 [facility] 4 [place] 09:42:00 HEMATOLOGY 2020-11-0 0.2 [facility] 4 [place] 09:42:00 HEMATOLOGY 2020-11-0 0.2 [facility] 4 [place] 09:42:00 HEMATOLOGY 2020-11-0 71.0 [facility] [place] 09:42:00 HEMATOLOGY 2020-11-0 2.0 [facility] [place] 09:42:00 HEMATOLOGY 2020-11-0 18.0 [facility] [place] 09:42:00 HEMATOLOGY 2020-11-0 3.0 [facility] [place] 09:42:00 HEMATOLOGY 2020-11-0 3.0 [facility] [place] 09:42:00 HEMATOLOGY 2020-11-0 2.0 [facility] [place] 09:42:00 HEMATOLOGY 2020-11-0 1.0 [facility] [place] 09:42:00 HEMATOLOGY 2020-11-0 0.0 [facility] [place] 09:42:00 HEMATOLOGY 2020-11-0 1 [facility] [place] 09:42:00 HEMATOLOGY 2020-11-0 Normal (08/12/20 3:42 Kojo rial 4 AM) [place] 09:42:00 HEMATOLOGY 2020-11-0 Normal (08/12/20 3:42 Kojo rial 4 AM) [place] 09:42:00 HEMATOLOGY 2020-08-12 09:42:00 Test Item Value Reference Range Interpretation Comme nts Tot Cell Ct (test code = Tot Cell Ct) 100 1 [facility] KunuimgGIFGXJMWRX3294-66-45 09:42:00Moderate *ABN*(08/12/20 3:42 AM) [facility] WnoptqsNGTKLIDGMI2927-05-53 09:42:006.4[facility]annHEMATOLOGY 2020-08-12 09:42:003.02[facility] PbboqoaFIWYMGFNXY8562-78-14 09:42:009.0[facility] CheognkOTXJUINUWL1146-16-64 09:42:0025.9[facility] IdssnowAJGGFUKLOY1699-94-82 09:42:0085.7[facility] XizvdekXAOGVKQZLA1089-69-08 09:42:00 Test Item Value Reference Range Interpretation Comments MCH (test code = MCH) 30.0 pg 27.0-31.0 [facility] VczyylxPMCNAEUCAH1384-32-69 09:42:0034.9[facility]annHEMATOLOGY 2020-08-12 09:42:0014.8[facility] NynzklmUTZIIRQBHA1310-77-43 09:42:37319Lssoxmrz ZcfsgisSTCJKMQULS3931-53-86 09:42:007.0[facility] HermannCHEM LEMUM3570-07-68 09:42:0079[facility]annCHEM FFZOK6510-08-33 09:42:0021[facility]annCHEM AUWRY1981-56-98 09:42:007.93[facility]annCHEM CUIVO7476-94-46 09:42:10568 [facility]annCHE[facility] LJCMK5041-42-99 09:42:003.2[facility]annCHEM PANEL 2020-08-12 09:42:99731Mvmckhkq HermannCHEM RFNLK4983-52-83 09:42:0027[facility]annCHEM STENT2856-03-82 09:42:008.8[facility]annCHEM GHVTC7390-33-14 09:42:0011.2[facility]annCHE[facility] YWCKT5905-73-73 09:42:007[facility] [place] MSZVLHNUUJ8772-11-44 09:42:004.7[facility] WxuinliOJHKPJLAWN8825-64-30 09:42:001.2 [facility] NaizmdhTGZVHZORSH1678-14-46 09:42:000.2[facility]annHEMATOLOGY 2020-08-12 09:42:000.2[facility] PtnwdrzRQPIFCMJAB0185-93-57 09:42:0071.0[facility] TgkbcerOZMUIRXBSD6155-04-16 09:42:002.0[facility] DladapqMXIGUIJXFB2761-54-06 09:42:0018.0[facility] XlgfdpwYKSMOTNARP7443-36-16 09:42:003.0[facility] [place] VJHJHJPTYR6746-91-47 09:42:003.0[facility] CzdoyylTTLXQONLNS6943-45-17 09:42:002.0 [facility] RdzhonjHZSYXKOMWW0953-97-99 09:42:001.0[facility]annHEMATOLOGY 2020-08-12 09:42:000.0[facility] DgjqmtwFMYJEQBYOG5586-63-57 09:42:001[facility] YqwsqqxPKPFAKLGJH3916-75-39 09:42:00Normal (08/12/20 3:42 AM)[facility] [place] WWVQYJZKUO7121-93-17 09:42:00Normal (08/12/20 3:42 AM)[facility]ann[facility]MATOLOGY 2020-08-12 09:42:00 Test Item Value Reference Range Interpretation Comments Tot Cell Ct (test code = Tot Cell Ct) 100 1 [facility] CjumfvoXNTOKWAIKW1103-18-61 09:42:00Moderate *ABN*(08/12/20 3:42 AM) [facility] SfpirhkMBLSECGCGO3914-54-58 09:42:006.4[facility]annHEMATOLOGY 2020-08-12 09:42:003.02[facility] AjazninFUXXAECZJQ7636-19-94 09:42:009.0[facility] XtgjoflYUYMVFBIMJ0011-86-68 09:42:0025.9[facility] GurulabEVVSIOVYEM8633-64-80 09:42:0085.7[facility] CbihlpmIREYZSKYAM5144-06-72 09:42:00 Test Item Value Reference Range Interpretation Comments MCH (test code = MCH) 30.0 pg 27.0-31.0 [facility] KcloleeIBXFRQUDET5153-13-80 09:42:0034.9[facility]annHEMATOLOGY 2020-08-12 09:42:0014.8[facility] DpgftdlLOBDHRYIVY6994-88-75 09:42:77429Afdjmwrv DohmxmvHELRQSXWNH9940-07-48 09:42:007.0[facility] HermannCHEM EKLPR7268-44-51 09:42:0079[facility]annCHEM UTAIZ2101-72-14 09:42:0021[facility]annCHEM LOCRW2477-71-41 09:42:007.93[facility]annCHEM NXVKH0559-10-95 09:42:62362 [facility]annCHE[facility] WNFKF8499-99-42 09:42:003.2[facility]annCHEM PANEL 2020-08-12 09:42:25913Zafxdemg HermannCHEM HCRRQ0047-73-80 09:42:0027[facility]annCHEM WJVWA9427-12-42 09:42:008.8[facility]annCHEM CFWBK6899-17-04 09:42:0011.2[facility]annCHEM OFOFL2473-65-96 09:42:007[facility] [place] RZHJGYUBQC1201-76-11 09:42:004.7[facility] QlowfwzKDSHAAOVDX2901-11-79 09:42:001.2 [facility] AkwtxxyOIRSIZMULE9127-26-07 09:42:000.2[facility]annHEMATOLOGY 2020-08-12 09:42:000.2[facility] RhwxxrwDUNSXUSSTP7710-22-06 09:42:0071.0[facility] JioptxuHNVFLIKQPI4203-98-50 09:42:002.0[facility] WoqidhmZOGWGQJJRW1766-31-09 09:42:0018.0[facility] GlejkypEVSDGKOIWF1555-23-20 09:42:003.0[facility] [place] MOFKOUKMVK0191-99-92 09:42:003.0[facility] DdlptfiUEIXZHTVMI9468-13-92 09:42:002.0 [facility] CbdrrsgJVGRIRBUBX1032-32-22 09:42:001.0[facility]annHEMATOLOGY 2020-08-12 09:42:000.0[facility] GljfxveIWVXGRIXZH5236-31-94 09:42:001[facility] IbpfeywMAQMIZRYEL3617-22-65 09:42:00Normal (08/12/20 3:42 AM)[facility] [place] PQFZFUYWTT9847-74-50 09:42:00Normal (08/12/20 3:42 AM)[facility]annHEMATOLOGY 2020-08-12 09:42:00 Test Item Value Reference Range Interpretation Comments Tot Cell Ct (test code = Tot Cell Ct) 100 1 [facility] MhagbruOGZTZMGAHI2129-60-17 09:42:00Moderate *ABN*(08/12/20 3:42 AM) [facility] KgzezhlCAWWHOCSOS7628-19-05 09:42:006.4[facility] HermannHEMATOLOGY 2020-08-12 09:42:003.02[facility] AvnoervRVKTSXMHCV8112-27-98 09:42:009.0[facility] PsmpgmrRRNYDSBRQQ5275-25-11 09:42:0025.9[facility] DdkgwhaPGFZPRCALS0505-73-56 09:42:0085.7[facility] LarzmehGZTYLCUYYJ9713-04-25 09:42:00 Test Item Value Reference Range Interpretation Comments MCH (test code = MCH) 30.0 pg 27.0-31.0 [facility] XvlxqpfTFCTBVSICX6098-27-24 09:42:0034.9[facility]annHEMATOLOGY 2020-08-12 09:42:0014.8[facility] CaypgteARVRIRHMWU0434-11-37 09:42:16054Sxtvwbpl HzjkgiuXOPAZEDMBK9557-86-61 09:42:007.0[facility] HermannCHEM DSPWN9507-07-17 09:35:0080[facility]annCHEM BTGOJ4578-45-63 09:35:0013[facility]annCHEM LCKCU7433-18-97 09:35:005.51[facility]annCHEM YPMNN3963-55-79 09:35:00866 [facility]annCHEM CBDHI7818-54-58 09:35:003.2[facility]annCHEM PANEL 2020-08-11 09:35:34495Qlopeafd HermannCHEM IYKZG4279-07-92 09:35:0028[facility]annCHEM VCCUS7037-26-11 09:35:008.4[facility]annCHEM PTVBI2246-43-99 09:35:0010.2[facility]annCHEM NVGHP2526-85-57 09:35:0010[facility] [place] CWCQXTMEDJ3263-01-62 09:35:0068.4[facility] WczggywVKAZSBFELD5495-23-75 09:35:00 17.8[facility] MmxezzpGXZYGABGNV9007-46-29 09:35:009.3[facility]annHEMATOLOGY 2020-08-11 09:35:003.7[facility] EipwparBGFAUTXPRL4382-90-70 09:35:000.8[facility] JsepibtOWPVHQIVED1423-68-96 09:35:004.1[facility] JivikmtFTODDGGPUL7982-89-00 09:35:001.1[facility] WkcmkxnNBBGFTKTAD4593-97-92 09:35:000.6[facility] [place] FALPNUXIIL3496-26-94 09:35:000.2[facility] LfqbxbnFTWZENUJOH1664-01-31 09:35:006.0 [facility] NvadkkdKYUZQIMZYB8516-19-42 09:35:002.84[facility]annHEMATOLOGY 2020-08-11 09:35:008.1[facility] OzlahmnSHUUMTRFIG8920-69-14 09:35:0024.2[facility] QfidvimLKHEBDHGGB9062-62-64 09:35:0085.3[facility] XiihfjoEGBUDCUJBI0613-85-21 09:35:00 Test Item Value Reference Range Interpretation Comments MCH (test code = MCH) 28.7 pg 27.0-31.0 [facility] UwzwxcnRAQAGRCUPR1741-35-15 09:35:0033.6[facility]annHEMATOLOGY 2020-08-11 09:35:0014.5[facility] EvswpacGABJVAKOBL0057-01-03 09:35:42473Rrhcvrrr PdagjusTOOXTVASKH0455-08-56 09:35:007.4[facility] HermannCHEM DIPKJ4808-49-84 09:35:0080[facility]annCHEM AZJHV1143-19-55 09:35:0013[facility]annCHEM OPURD4880-16-72 09:35:005.51[facility] HermannCHEM IFZIE1404-80-51 09:35:36687 [facility]annCHEM WXWYJ8048-20-88 09:35:003.2[facility] HermannCHEM PANEL 2020-08-11 09:35:83463Scltuprj HermannCHEM NVNUW8780-96-14 09:35:0028[facility]annCHEM NSAUD2202-97-98 09:35:008.4[facility]annCHEM UHRKD1052-42-40 09:35:0010.2[facility]annCHEM LKVPL2584-37-78 09:35:0010[facility] [place] NYVDSWREYA4494-58-99 09:35:0068.4[facility] TdurdbkGFOTVEBTDX9365-52-78 09:35:00 17.8[facility] BbhsporKYGLRJOQEO4249-50-74 09:35:009.3[facility] HermannHEMATOLOGY 2020-08-11 09:35:003.7[facility] OanknfbFGNMREEUCZ0751-03-31 09:35:000.8[facility] YmxcjmlWOUFNLOWRS1733-10-42 09:35:004.1[facility] AnvqmguSUXENWBTZY2844-22-85 09:35:001.1[facility] ZkzmzmbMXMMFPRJIA4499-21-07 09:35:000.6[facility] [place] HGJKVCJKPB3539-68-53 09:35:000.2[facility] LlcubccEFVCVRMZKT3360-85-93 09:35:006.0 [facility] RqpuznsPAISTLKHQC1847-39-38 09:35:002.84[facility] HermannHEMATOLOGY 2020-08-11 09:35:008.1[facility] YxbgwjnEPQVKRWBYE3141-06-55 09:35:0024.2[facility] RyigkyzXRSPCUXSAP8461-28-30 09:35:0085.3[facility] ZlwpjivVOJJIARMNN7374-77-05 09:35:00 Test Item Value Reference Range Interpretation Comments MCH (test code = MCH) 28.7 pg 27.0-31.0 [facility] KtweiwtKWKQLBGJGH9846-51-73 09:35:0033.6[facility] HermannHEMATOLOGY 2020-08-11 09:35:0014.5[facility] OhpapsqJZTKLNDMYH1401-06-94 09:35:96584Hiieblnk LnldywqVVSRFEOCVZ3751-89-44 09:35:007.4[facility] HermannCHEM TXQYE0518-05-96 09:35:0080[facility]annCHEM SWVED1800-56-57 09:35:0013[facility]annCHEM FGUKD1119-79-45 09:35:005.51[facility] HermannCHEM AHZGY6634-63-19 09:35:14842 [facility]annCHEM CVWZF3019-65-27 09:35:003.2[facility] HermannCHEM PANEL 2020-08-11 09:35:73699Notzfclj HermannCHEM XWCEI9430-91-85 09:35:0028[facility]annCHEM TUNBY6498-37-58 09:35:008.4[facility] HermannCHEM WZQEL9281-84-82 09:35:0010.2[facility]annCHEM UMTVP4512-00-09 09:35:0010[facility] [place] LZMZWVEHPC3967-84-18 09:35:0068.4[facility] SoeiaokMOCATKWMZP5125-11-11 09:35:00 17.8[facility] FposhpvYNMYZGQGOF9104-76-93 09:35:009.3[facility] HermannHEMATOLOGY 2020-08-11 09:35:003.7[facility] MejtppwNENMYDJTZT1877-92-79 09:35:000.8[facility] TroqwvaNZSWSOSQNZ1739-12-36 09:35:004.1[facility] QfyvfadZONCDMFUOU4869-88-38 09:35:001.1[facility] WoqyjsbPMTEJLXJNO1689-75-96 09:35:000.6[facility] [place] ICAXQLGXYX1514-01-03 09:35:000.2[facility] LzuluxrNZJMWUEKLQ0967-65-85 09:35:006.0 [facility] YbzdxdrIVPTOXCGFR4823-94-83 09:35:002.84[facility]annHEMATOLOGY 2020-08-11 09:35:008.1[facility] AejaoicCTPGXWUWFD1424-31-40 09:35:0024.2[facility] RmuowlhARDUTDOTCS4064-33-45 09:35:0085.3[facility] KlxquyfUYXTDOMVCV1088-98-02 09:35:00 Test Item Value Reference Range Interpretation Comments MCH (test code = MCH) 28.7 pg 27.0-31.0 [facility] XaxyaceSKKGFZIMJJ9041-72-34 09:35:0033.6[facility] HermannHEMATOLOGY 2020-08-11 09:35:0014.5[facility] RrthaopFMEVUWRZVA6414-40-91 09:35:83294Ddmtiifo SsjlptbGLENJZIRJA9161-41-02 09:35:007.4[facility] HermannCHEM TDOOD7411-65-74 09:39:10229Zajpxzun HermannCHEM MJYYT5994-77-47 09:39:0021[facility]annCHEM JEKWB4742-64-31 09:39:006.77[facility]annCHEM APIVB1721-15-24 09:39:45030 [facility]annCHEM ILLUY6818-32-07 09:39:003.5[facility] HermannCHEM PANEL 2020-08-10 09:39:84723Bttkmbnk HermannCHEM YSBDA1076-37-65 09:39:0029[facility]annCHEM ISBRB6789-31-97 09:39:009.5[facility]annCHEM LCMFZ8939-43-65 09:39:007.9[facility] HermannCHEM TMUYX7644-31-24 09:39:008[facility] [place] UNVVXNUODV7122-90-85 09:39:003.8[facility] NjebostSHTBZKPSSC3572-20-50 09:39:001.1 [facility] JoquoonUXEPGQYDZT5175-24-62 09:39:000.2[facility]annHEMATOLOGY 2020-08-10 09:39:000.4[facility] EyjzcsrQGHWNTKFYZ4678-61-09 09:39:0064.0[facility] TdjkqffZGBVKXXBTK1922-67-30 09:39:002.0[facility] UrdroalOMXZNLZQCR9840-75-78 09:39:0020.0[facility] ComtgkkMSTNPPYIQB8613-83-55 09:39:004.0[facility] [place] TYEBHURFAU0950-67-42 09:39:007.0[facility] BfuaknnFSBCUJKNIB2299-03-24 09:39:003.0 [facility] QoetrtvAXBNPODLOL4517-44-90 09:39:000.0[facility]annHEMATOLOGY 2020-08-10 09:39:001[facility] AufvbckLZMBVBERUL8847-52-98 09:39:00Normal (08/10/20 3:39 AM)[facility] RwftcdiPRIUJGXUJW9791-83-10 09:39:00Normal (08/10/20 3:39 AM) [facility] SlohlmqPDVGJSSXIF6837-95-96 09:39:005.7[facility] HermannHEMATOLOGY 2020-08-10 09:39:002.61[facility] IbxoxxnLHIXOPEBGG8275-27-56 09:39:007.5[facility] CqvhyapDYDBPFAYSZ5521-93-54 09:39:0022.3[facility] MsvhsujUOCCCPQMNY1926-85-33 09:39:0085.6[facility] YobjlxzLGRGZMULZG6843-01-12 09:39:00 Test Item Value Reference Range Interpretation Comments MCH (test code = MCH) 28.8 pg 27.0-31.0 [facility] ShoqtklGGDLVAFDDE6408-46-00 09:39:0033.6[facility] HermannHEMATOLOGY 2020-08-10 09:39:0013.9[facility] WyytgaxQKZWTJNSIK5230-01-03 09:39:42725Tletbahw SdteqleRASJSCDMDK6601-30-95 09:39:007.5[facility] HermannCHEM JJFFE7689-23-47 09:39:92185Vjncvfzh HermannCHEM YTMLV4760-61-39 09:39:0021[facility]annCHEM ZZPOF9334-11-58 09:39:006.77[facility]annCHEM IWCYF6587-84-95 09:39:18521 [facility]annCHEM MNAXF9402-20-98 09:39:003.5[facility]annCHEM PANEL 2020-08-10 09:39:71663Dlsfrdam HermannCHEM YOFLI3067-63-76 09:39:0029[facility]annCHEM OCHMR0756-15-30 09:39:009.5[facility]annCHEM YBSVX1428-99-97 09:39:007.9[facility]annCHEM UFFXU3551-90-80 09:39:008[facility] [place] FYPUCMEKHR8205-78-29 09:39:003.8[facility] OdeyclmZUUJOZOWKN6576-12-46 09:39:001.1 [facility] WopmmqcNGRHIAJJVH7574-51-21 09:39:000.2[facility]annHEMATOLOGY 2020-08-10 09:39:000.4[facility] TotgpctPPPEWTEKAU3224-26-62 09:39:0064.0[facility] ZoprphyVDIFDPKDAH4727-08-51 09:39:002.0[facility] CjnocesYXSMYKCZQD1000-55-06 09:39:0020.0[facility] BtqabiyXFRGQYBLIG1498-20-56 09:39:004.0[facility] [place] PFCQWSIZIJ9957-01-97 09:39:007.0[facility] VyuvaioFEXFGZPXNO2138-87-50 09:39:003.0 [facility] QppmwujMQEKVSVVZA8753-02-62 09:39:000.0[facility]annHEMATOLOGY 2020-08-10 09:39:001[facility] KvvjijnKWQALUMYYP1390-83-07 09:39:00Normal (08/10/20 3:39 AM)[facility] BcnmmqnJNOHKPXQZI7573-23-81 09:39:00Normal (08/10/20 3:39 AM) [facility] CqemkngDXPEMIFVRL3937-36-48 09:39:005.7[facility]annHEMATOLOGY 2020-08-10 09:39:002.61[facility] XiznmywNPPXHSXBZS3494-58-84 09:39:007.5[facility] XrglamoTJFUDLZXOO7250-98-61 09:39:0022.3[facility] IgnztnzINCUBUHAQA8249-74-40 09:39:0085.6[facility] PkjydmpLLMBILWAPK7641-80-05 09:39:00 Test Item Value Reference Range Interpretation Comments MCH (test code = MCH) 28.8 pg 27.0-31.0 [facility] HpwkccjNVTSLZIFTQ9656-25-29 09:39:0033.6[facility]annHEMATOLOGY 2020-08-10 09:39:0013.9[facility] WjclfyvFUTGIXSDRH5640-04-22 09:39:80297Ylhswazg AtvsygwYZAJEZCECN9607-14-51 09:39:007.5[facility] HermannCHEM KZQOT4622-96-86 09:39:75145Vtvmxrct HermannCHEM IEZTU4368-18-87 09:39:0021[facility]annCHEM QTAVJ9657-25-44 09:39:006.77[facility]annCHEM GWAXN9627-15-72 09:39:18899 [facility]annCHEM GDAPW1813-72-94 09:39:003.5[facility]annCHEM PANEL 2020-08-10 09:39:18244Apebhngb HermannCHEM FXKIE9030-62-53 09:39:0029[facility]annCHEM LCZUT4306-72-00 09:39:009.5[facility]annCHEM NJGQK8674-40-49 09:39:007.9[facility]annCHEM HHNYD0556-47-37 09:39:008[facility] [place] CEQTHEMQKN7992-11-15 09:39:003.8[facility] LzbjoxcKBRHAQVHMP5160-44-54 09:39:001.1 [facility] NxwgmvaKZJIDZGCSU5618-45-96 09:39:000.2[facility]annHEMATOLOGY 2020-08-10 09:39:000.4[facility] XzfvsxuKUBSVABQPT3760-02-83 09:39:0064.0[facility] SbgvtatOFXQROKSBL6619-13-19 09:39:002.0[facility] FdoqafjHJEVMIHTTB5918-29-11 09:39:0020.0[facility] ZyglwoyEWKBTGPSYQ8102-27-39 09:39:004.0[facility] [place] AHXKXCXNAX1092-94-42 09:39:007.0[facility] UpqbqhkKUNXXIVWAV5414-38-17 09:39:003.0 [facility] PacyjulTEIRSXFJLZ0798-77-92 09:39:000.0[facility]annHEMATOLOGY 2020-08-10 09:39:001[facility] CvxvwtsEIMBJMBNNF6425-71-29 09:39:00Normal (08/10/20 3:39 AM)[facility] NimiidmTHZLIVGYEZ2012-82-62 09:39:00Normal (08/10/20 3:39 AM) [facility] FgloaimOBLFXILJVK3310-39-07 09:39:005.7[facility]annHEMATOLOGY 2020-08-10 09:39:002.61[facility] CwhvsnaKSOZZNSECU2039-12-91 09:39:007.5[facility] DolmmceSLZKEVTWYO5880-45-91 09:39:0022.3[facility] RoyhvxpAFMUKOJTYQ6355-57-92 09:39:0085.6[facility] SianzzpOAYJEPWVQF9347-18-63 09:39:00 Test Item Value Reference Range Interpretation Comments MCH (test code = MCH) 28.8 pg 27.0-31.0 [facility] VzwbczxNQZVZKJXQE6028-99-68 09:39:0033.6[facility]annHEMATOLOGY 2020-08-10 09:39:0013.9[facility] FadceoeOULYTOGJXR4793-49-16 09:39:30500Twlwcrjv PvufvxtZXSLAJFAQV0508-44-56 09:39:007.5[facility] EbsaqluSGLCFJRVYP0629-16-42 16:40:000.6[facility] IpqfderSHFYBZMKBH2135-79-52 16:40:005.7[facility] [place] GDPSNXDTCU6032-01-02 16:40:002.82[facility] NuomuyeNKTGDEHADT3409-51-11 16:40:00 8.0[facility] RizwxtxWGZZCZRNJN4193-08-72 16:40:0024.2[facility]annHEMATOLOGY 2020-08-09 16:40:0085.8[facility] PpjfoaeYJEXPYYSUA4222-95-29 16:40:00 Test Item Value Reference Range Interpretation Comments MCH (test code = MCH) 28.6 pg 27.0-31.0 [facility] PcbilazHKLLPRAWZF0690-46-57 16:40:0033.3[facility]annHEMATOLOGY 2020-08-09 16:40:0014.1[facility] CiwsbeuNTVXUYHBLR0424-78-44 16:40:28945Pbydfjvi ZiheaihNUFXNOHRRB7442-52-89 16:40:007.2[facility] NxykwoiLUEDHPEYEH5031-52-48 16:40:0072.6[facility] NtmxcrhEKDIFXELGS0398-88-69 16:40:0014.6[facility] [place] KERBQNNNJR2200-26-75 16:40:007.8[facility] LnmhxmcCGGPYYGOYK1613-48-65 16:40:004.4 [facility] QmawfggPSUMLWSMTU1570-44-29 16:40:004.2[facility]annHEMATOLOGY 2020-08-09 16:40:000.8[facility] MraeruiTGMFONUDDE4758-47-74 16:40:000.4[facility] EobaaohSBXJULXIFD7702-91-52 16:40:000.2[facility] JhmebnhFTIYKQHUFZ5230-93-93 16:40:007[facility] KuajrajQBWXAOQEJM4017-43-92 16:40:000.6[facility] [place] VBUJECBCBR0462-02-51 16:40:005.7[facility] PltrljoLFMVYOXNQP3155-78-60 16:40:00 2.82[facility] SnupytcWOLUSTOLDQ0215-69-89 16:40:008.0[facility]annHEMATOLOGY 2020-08-09 16:40:0024.2[facility] ZkffnxeVFJQMVVKGJ3823-72-53 16:40:0085.8[facility] JuxiltwJIDEJAIAUK4250-63-40 16:40:00 Test Item Value Reference Range Interpretation Comments MCH (test code = MCH) 28.6 pg 27.0-31.0 [facility] PtdllbnZXMZGPJWIW2802-54-83 16:40:0033.3[facility]annHEMATOLOGY 2020-08-09 16:40:0014.1[facility] QmyyqwjTYICYBTADQ3009-90-93 16:40:41874Ftcszpyi WjnyrycDIGYGEMBJW4125-82-25 16:40:007.2[facility] MajmlinPTTQSILEHY0719-97-34 16:40:0072.6[facility] QcsqagzMCWUCGWVZA8721-73-73 16:40:0014.6[facility] XYFYDRHILL7760-70-15 16:40:007.8[facility] VozwwdvXDREGAZIWH5037-19-91 16:40:004.4 [facility] VxeulnhZDUFLRFEWI2107-18-10 16:40:004.2[facility]annHE[facility]OLOGY 2020-08-09 16:40:000.8[facility] PjyymhsFTYLMWRAEH6550-07-22 16:40:000.4[facility] TehkiedDKZPTXJHIJ0582-58-12 16:40:000.2[facility] YffnoyyTGTMFHAFJV9101-74-00 16:40:007[facility] GboupedUKATVIFHVD7797-54-71 16:40:000.6[facility] [place] PBEWGSDSPC7914-97-27 16:40:005.7[facility] XtgwdyrRQFOVGJJQN7232-83-27 16:40:00 2.82[facility] HpkcpgvITHYRSZRQK9909-06-21 16:40:008.0[facility]annHE[facility]OLOGY 2020-08-09 16:40:0024.2[facility] AtullsuKXLCTZNFZR1395-77-72 16:40:0085.8[facility] BffvymfYPJEWPWORX1438-24-47 16:40:00 Test Item Value Reference Range Interpretation Comments MCH (test code = MCH) 28.6 pg 27.0-31.0 [facility] VvrbviqDNOSSTYGHM7520-52-48 16:40:0033.3[facility]HE[facility]OLOGY 2020-08-09 16:40:0014.1[facility] NydpepuYYEZTYAPTS6575-65-22 16:40:05795Kmhadbva SgdldgmOFDYASCLAI4658-85-88 16:40:007.2[facility] VismnqbMIOZZQXECK7869-76-66 16:40:0072.6[facility] VcvbagaVALRRQXEPH6795-67-17 16:40:0014.6[facility] [place] [place] PNBYMMSIYY1759-89-41 16:40:007.8[facility] QgqylybVKVCGIBCRO5363-51-10 16:40:004.4 [facility] HubeuzwEUOTQRUOMO0201-85-67 16:40:004.2[facility]HE[facility]OLOGY 2020-08-09 16:40:000.8[facility] BakzhjgHKPYISSNGN8612-22-79 16:40:000.4[facility] HktbbwvURCQRYTEJE4486-69-50 16:40:000.2[facility] GiyunynIHZDTXQCDI7131-40-84 16:40:007[facility]annCHEM HLQQP8071-99-80 14:48:004.2[facility]annCHEM QUDSS8608-95-24 14:48:001.3[facility]annCHEM DOKKK7486-53-02 14:48:0014 [facility]annCHE[facility] WRPYL6500-33-84 14:48:0017[facility]annCHEM PANEL 2020-08-09 14:48:0092[facility]annCHE[facility] ZFBQK3117-81-01 14:48:000.5[facility]annCHEM JAHUW1117-50-22 14:48:00 Test Item Value Reference Range Interpretation Comments B/C Ratio (test code = B/C Ratio) 3 1 6-25 [facility] OCRYX0162-05-89 14:48:002.9[facility]annCHEM PANEL 2020-08-09 14:48:00 Test Item Value Reference Range Interpretation Comments A/G Ratio (test code = A/G Ratio) 0.4 1 0.7-1.6 [facility]annCHE[facility] ITNYK7016-31-32 14:48:001.8[facility]annCHEM PANEL 2020-08-09 14:48:0070[facility]annCHE[facility] GWHZG0675-26-28 14:48:0025[facility]annCHE[facility] TRNWA4808-59-19 14:48:008.85[facility]annCHEM MCKGU5704-00-50 14:48:11832Ysobrhuq HermannCHEM ICGGH7253-69-33 14:48:004.0[facility]annCHEM JSXEN1638-95-44 14:48:72773Wpyrzeeh HermannCHEM LFLEP1910-06-57 14:48:0030 [facility] RWMTM2444-66-98 14:48:007.5[facility]annCHEM PANEL 2020-08-09 14:48:0013.0[facility]annCHEM QCUYX7499-14-39 14:48:006[facility]annCHE[facility] RAXKN7011-53-47 14:48:004.2[facility]annCHEM URTZW5433-17-22 14:48:001.3[facility]annCHEM GYAUJ8945-92-79 14:48:0014[facility]annCHEM XOLYE9890-14-67 14:48:0017[facility]annCHEM QZZRJ5923-72-95 14:48:0092 [facility]CHE[facility] LRXIM8731-55-83 14:48:000.5[facility]annCHEM PANEL 2020-08-09 14:48:00 Test Item Value Reference Range Interpretation Comments B/C Ratio (test code = B/C Ratio) 3 04-02 [facility]annCHE[facility] IBTFE0561-07-93 14:48:002.9[facility]annCHEM PANEL 2020-08-09 14:48:00 Test Item Value Reference Range Interpretation Comments A/G Ratio (test code = A/G Ratio) 0.4 1 0.7-1.6 [facility]CHE[facility] NQPLJ1655-80-74 14:48:001.8[facility]annCHEM PANEL 2020-08-09 14:48:0070[facility]annCHEM XEJDG8762-83-00 14:48:0025[facility]annCHEM YVLMX2813-62-48 14:48:008.85[facility]annCHEM PEAMY2723-50-31 14:48:94406Xlivhkqf HermannCHEM BZSXK1898-65-22 14:48:004.0[facility]annCHEM UOQKG6558-58-02 14:48:17192Fjynhgxx HermannCHEM RLPBD8607-68-43 14:48:0030 [facility]CHE[facility] BOKXF2705-47-07 14:48:007.5[facility]annCHEM PANEL 2020-08-09 14:48:0013.0[facility]annCHEM VHKCX6343-62-99 14:48:006[facility]annCHE[facility] LDUMN4214-89-81 14:48:004.2[facility]annCHEM UWYEJ5861-89-08 14:48:001.3[facility]annCHEM ZNUHO2022-75-30 14:48:0014[facility]annCHEM QSWWV8114-50-99 14:48:0017[facility]annCHEM ZNKML9655-65-10 14:48:0092 [facility]annCHE[facility] CJKQW6351-78-29 14:48:000.5[facility]annCHEM PANEL 2020-08-09 14:48:00 Test Item Value Reference Range Interpretation Comments B/C Ratio (test code = B/C Ratio) 3 1 6-25 [facility]annCHE[facility] DIRVA8323-28-28 14:48:002.9[facility]annCHEM PANEL 2020-08-09 14:48:00 Test Item Value Reference Range Interpretation Comments A/G Ratio (test code = A/G Ratio) 0.4 1 0.7-1.6 [facility]CHE[facility] FRJBN3684-41-63 14:48:001.8[facility]annCHEM PANEL 2020-08-09 14:48:0070[facility]annCHEM PEWPE0666-61-94 14:48:0025[facility]annCHEM MTOXZ5194-59-50 14:48:008.85[facility]annCHEM GCJOQ8758-26-44 14:48:20898Seszgsie HermannCHEM RMKVF9125-35-27 14:48:004.0[facility]annCHEM WKAAW1992-80-75 14:48:63556Pfnuiqhg HermannCHEM XROAE2369-89-02 14:48:0030 [facility]annCHE[facility] SDGOA9883-16-13 14:48:007.5[facility]annCHEM PANEL 2020-08-09 14:48:0013.0[facility]annCHEM GBMGW3683-63-42 14:48:006[facility] LfpksflOEEZRPHDOF8631-01-83 10:41:007.6[facility] EielpqeMFCLIDHTGJ2241-94-29 10:41:007.6[facility] CcjbejtNWFDMWIQJS5989-35-52 10:41:007.6[facility] [place] MCTAHGOORE2975-62-82 02:33:007.9[facility] RrvjnbfDEGQYKPCCI7284-58-56 02:33:007.9 [facility] EsgwnckMRTNNDQGBQ6702-01-80 02:33:007.9[facility]annHEMATOLOGY 2020-08-08 20:10:0023.0[facility] VmwjtnwLMETZSPVUZ2462-19-30 20:10:0023.0[facility] XjopgzbJZLOUFUYYK4142-40-99 20:10:0023.0[facility]annBODY FXQKUI6559-30-11 19:15:00Light Yellow (08/08/20 2:15 PM)[facility] ROTHQU9336-67-41 19:15:00Slight Cloudy (08/08/20 2:15 PM)[facility]ann[facility] BGQGCN3381-94-23 19:15:75541Gqibasdw HermannBODY PBJAYB7195-33-66 19:15:08155Njknxwrj HermannB[facility] CGBSIZ4754-47-08 19:15:0018[facility]ann[facility] OMFVIN5038-05-15 19:15:0010 [facility] GBUKZA6262-20-80 19:15:0044[facility] FLUIDS 2020-08-08 19:15:0026[facility]annB[facility] JKPKRN9355-33-27 19:15:002[facility] UOXMRE9318-15-30 19:15:00Abdomn (08/08/20 2:15 PM)[facility] UFVRSI5021-46-44 19:15:00Light Yellow (08/08/20 2:15 PM)[facility] BODY ASKTOI4203-01-02 19:15:00Slight Cloudy (08/08/20 2:15 PM)[facility] BODY AYSTUF3320-60-57 19:15:26904Ovuojdmh HermannBODY XUXMRE7163-57-83 19:15:00 512[facility]annB[facility] RDLAHS5595-57-50 19:15:0018[facility] FLUIDS 2020-08-08 19:15:0010[facility]annB[facility] RPLRMU0225-71-34 19:15:0044[facility] OMEUBM8984-03-52 19:15:0026[facility]annB[facility] IYJHFK9277-75-83 19:15:002[facility] VYHWIC0293-46-77 19:15:00Abdomn (08/08/20 2:15 PM) [facility] LAKMZZ9620-51-40 19:15:00Light Yellow (08/08/20 2:15 PM) [facility] VBATLT1477-10-58 19:15:00Slight Cloudy (08/08/20 2:15 PM) [facility] LKREDM4716-56-28 19:15:83890Lilebbkc HermannBODY FLUIDS 2020-08-08 19:15:75282Kfqptjjs HermannBODY MCKYDE3541-92-99 19:15:0018[facility]ann[facility] WKPIYK9079-97-95 19:15:0010[facility]ann[facility] KNPPYN3178-44-46 19:15:0044[facility] FJKMVT3730-00-49 19:15:0026[facility] DUFEAD7839-87-19 19:15:002[facility] APEGRN9546-49-12 19:15:00Abdomn (08/08/20 2:15 PM)[facility] WXCUPSF0758-72-81 15:28:09Product available 4(08/08/20 10:28 AM)[facility] MGRWZFM5092-94-77 15:28:09Product available 4(08/08/20 10:28 AM)[facility] RES[facility] 2020-08-08 15:28:09Product available 4(08/08/20 10:28 AM)[facility] ROWLMUG9134-92-99 14:41:00Negative (08/08/20 9:41 AM)[facility] KAPQFBBEZB5403-67-60 14:41:001.0[facility] GyphsrfACUFYFZYBT3376-76-56 14:41:009.0 [facility]TknybmyOEWJUEIHGS8578-67-59 14:41:00See Note (08/08/20 9:41 AM)[facility] RuevhtpPJWYWMFDZK4326-27-49 14:41:00Normal (08/08/20 9:41 AM)[facility] TFGVGERBGK5823-27-09 14:41:001+ *ABN*(08/08/20 9:41 AM)[facility] GZOKSLEDON8002-14-45 14:41:001+ *ABN*(08/08/20 9:41 AM)[facility] GKYPRUEJLW1681-83-30 14:41:001+ (08/08/20 9:41 AM)[facility] 2020-08-08 14:41:00Moderate *ABN*(08/08/20 9:41 AM)[facility] 2020-08-08 14:41:006.0[facility] ZxjviaaXKPDFDNRVW5670-57-83 14:41:002.32[facility] ZwqtkptBFOEBPRIHR6312-92-49 14:41:0019.8[facility] LcdlnmdBRAOUAYXRJ2125-95-98 14:41:0085.6[facility] VacvcukZBFNYIORZI0937-12-45 14:41:00 Test Item Value Reference Range Interpretation Comments MCH (test code = MCH) 29.0 pg 27.0-31.0 [facility] MhyizmqZFUMOSENCM2954-67-92 14:41:0033.8[facility]annHEMATOLOGY 2020-08-08 14:41:0013.9[facility] PjiczfgKMUMCUWRFP8613-02-93 14:41:72919Bylzsttu LeripnlMGVSXLSZUN9560-98-56 14:41:006.8[facility] IpiymrdVDHEVQFMLH2042-15-92 14:41:004.1[facility] JxlbsohQENRNIXHXP8645-39-00 14:41:001.4[facility] WMFTMNJRQU8795-17-00 14:41:000.1[facility] CkjottuMYFJUOPHSY1782-67-00 14:41:000.4 [facility] CydkggxYWQDXOPORM7644-64-30 14:41:0068.0[facility]annHEMATOLOGY 2020-08-08 14:41:0014.0[facility] HosubddWALUCMRBGO1017-51-53 14:41:002.0[facility] UormatuCJRHFYVPMV9253-01-28 14:41:006.0[facility] RESULTS 2020-08-08 14:41:00Negative (08/08/20 9:41 AM)[facility]annHEMAT[facility] 2020-08-08 14:41:001.0[facility] EqrqhlqYCTMAFIFBV9767-22-46 14:41:009.0[facility] RgdzmtqFGDQSANPAT4317-02-88 14:41:00See Note (08/08/20 9:41 AM)[facility] QNRVUAHXWS9387-82-71 14:41:00Normal (08/08/20 9:41 AM)[facility] 2020-08-08 14:41:001+ *ABN*(08/08/20 9:41 AM)[facility] 2020-08-08 14:41:001+ *ABN*(08/08/20 9:41 AM)[facility]HE[facility] 2020-08-08 14:41:001+ (08/08/20 9:41 AM)[facility] ZgyjppeFFFULCHUYF1242-78-12 14:41:00Moderate *ABN*(08/08/20 9:41 AM)[facility] LuahoufJBZHUQKOFE9368-22-07 14:41:006.0[facility] RxrbintLTKQBJENMD8470-44-33 14:41:002.32[facility] PEDOEVVZEU9313-74-69 14:41:0019.8[facility] RkmypauMTHXDTZPVZ7664-57-37 14:41:00 85.6[facility] BsmpcueNFGKXLYEOV7974-28-14 14:41:00 Test Item Value Reference Range Interpretation Comments MCH (test code = MCH) 29.0 pg 27.0-31.0 [facility] TaoocwiEDRNOKXISM4446-96-80 14:41:0033.8[facility]annHEMATOLOGY 2020-08-08 14:41:0013.9[facility] LftnrswKGZWHTLBQU5355-08-43 14:41:04417Pzclgvin FysmnuoDFKNUEDDJT8361-00-35 14:41:006.8[facility] CmiatrmIFZHVTWBUD7747-62-18 14:41:004.1[facility] SrahsmlERTZDRZTIB8893-97-58 14:41:001.4[facility] SROHKKLWVF2635-03-56 14:41:000.1[facility] MldyyboQXETUCUUGN1885-29-04 14:41:000.4 [facility] JjxbtfzIJQWXFCBOD4605-22-52 14:41:0068.0[facility]annHEMATOLOGY 2020-08-08 14:41:0014.0[facility] QkvgndsWTQZMRMDPN3313-04-77 14:41:002.0[facility] PawdgmlQXKERCCNTR8292-87-25 14:41:006.0[facility]BL[facility] RESULTS 2020-08-08 14:41:00Negative (08/08/20 9:41 AM)[facility]annHEMATOLOGY 2020-08-08 14:41:001.0[facility] SzvwsbyXVLJPUTUJS3311-09-72 14:41:009.0[facility] JjqoipoVBDTXVSJPO8662-80-44 14:41:00See Note (08/08/20 9:41 AM)[facility] SWQXOYCXBG8567-39-25 14:41:00Normal (08/08/20 9:41 AM)[facility] 2020-08-08 14:41:001+ *ABN*(08/08/20 9:41 AM)[facility] 2020-08-08 14:41:001+ *ABN*(08/08/20 9:41 AM)[facility]annHE[facility]OLOGY 2020-08-08 14:41:001+ (08/08/20 9:41 AM)[facility] YvgtqucAKJEDRVLPY2015-03-96 14:41:00Moderate *ABN*(08/08/20 9:41 AM)[facility] EoyxuaeGPNNJZAHWB8308-01-28 14:41:006.0[facility] FhlnrhwUFSFAVPVOT7395-06-12 14:41:002.32[facility] EQUTOQXUFL9659-99-26 14:41:0019.8[facility] OasaipoAADNYZVXNG8699-34-76 14:41:00 85.6[facility] FzgupetKSIHJAOJYW8747-84-48 14:41:00 Test Item Value Reference Range Interpretation Comments MCH (test code = MCH) 29.0 pg 27.0-31.0 [facility] GffqdqnUFRCIMRXYF6936-90-26 14:41:0033.8[facility]annHEMATOLOGY 2020-08-08 14:41:0013.9[facility] QqhgdmzLQYCSBACQB8195-20-89 14:41:62465Slfhpkfk LglhzoiPMJNWIDUUY0225-99-41 14:41:006.8[facility] ZdagzrrSMBUIIMFQB3789-04-08 14:41:004.1[facility] OxscshqMIQLQRDHTF6186-35-97 14:41:001.4[facility] IDRGZPKXPR5277-68-07 14:41:000.1[facility] VinwnoyFIHIFDQLNF2115-42-56 14:41:000.4 [facility] EzmehpwARGMFDVGPG3408-60-83 14:41:0068.0[facility]annHEMATOLOGY 2020-08-08 14:41:0014.0[facility] PktnjzmNVQENPKUXG7765-64-63 14:41:002.0[facility] YnoipsfGJHQSUHQXN9677-41-37 14:41:006.0[facility] HermannCHEM TORAR1957-45-18 08:42:004.4[facility]annCHEM FUIRI0717-48-48 08:42:0080[facility]annCHEM YIAQV3469-96-30 08:42:0034[facility]annCHEM WYHRG6026-35-04 08:42:0010.90 [facility]annCHEM OOUXL2587-72-54 08:42:95083Qqydfgqv HermannCHEM PANEL 2020-08-08 08:42:003.[facility] HermannCHEM XJRBE5974-40-12 08:42:0099[facility]annCHEM DBHAE3853-05-13 08:42:0033[facility]annCHEM RJQSC2062-78-26 08:42:008.1[facility] HermannCHEM PGUJO1094-15-64 08:42:009.[facility]annCHEM VEWKR1590-56-29 08:42:005[facility] RpoupcrHZMDBCKWVZ9211-75-81 08:42:000.6 [facility] OvtlllpJFHPFAGIZA4462-82-33 08:42:006.7[facility]annHEMATOLOGY 2020-08-08 08:42:002.53[facility] OdydtmvBDTLTTVFOT1750-18-05 08:42:0084.8[facility] YsygskwUONRHSKRSZ4118-57-27 08:42:00 Test Item Value Reference Range Interpretation Comments MCH (test code = MCH) 28.5 pg 27.0-31.0 [facility] LsxfuduBYTUUOXAIA2132-02-54 08:42:0033.6[facility]annHEMATOLOGY 2020-08-08 08:42:0014.4[facility] XyypgwoEWVLQLDNQG0409-62-35 08:42:77252Xnqperpo WzluelpZFHWUAMEJA9139-86-99 08:42:007.0[facility] ZjysvscVSARXIFLNS2922-67-08 08:42:0071.1[facility] LgjjlieEFVBOCTUQO4873-83-47 08:42:0016.3[facility] YVPOYGNBGY0566-39-34 08:42:008.0[facility] DmhwtrsMFSTLBANLZ5101-53-81 08:42:004.0 [facility] JnguibpSMNYNUMTVT3955-28-03 08:42:004.7[facility]annHEMATOLOGY 2020-08-08 08:42:001.1[facility] VfmjqwhCHXVCKARAJ7985-76-29 08:42:000.5[facility] LqtlikkDVQWOIGZEH5692-12-23 08:42:000.3[facility] HermannCHEM GOTJZ0207-52-58 08:42:004.4[facility] HermannCHEM BDNBZ2140-82-04 08:42:0080[facility]annCHEM SHSZW2837-56-09 08:42:0034[facility] HermannCHEM MDWAA9471-21-80 08:42:0010.90 [facility]annCHEM USRBS3838-14-26 08:42:60878Mtxzatsa HermannCHEM PANEL 2020-08-08 08:42:003.[facility] HermannCHEM IBFOO9523-44-09 08:42:0099[facility]annCHEM XHWNV3910-14-89 08:42:0033[facility] HermannCHEM FRQVC9102-06-45 08:42:008.1[facility]annCHEM IQKWY2078-24-91 08:42:009.6[facility] HermannCHEM KSMEU7040-87-67 08:42:005[facility] KbxfkjdAYAHULQZLE6978-45-98 08:42:000.6 [facility] YedhkaoAXCLKODJEE0376-27-82 08:42:006.7[facility]annHEMATOLOGY 2020-08-08 08:42:002.53[facility] GewuzkqCPAAYZKNOK1891-92-07 08:42:0084.8[facility] ZqmsyhpSDALHNNXVX1367-58-69 08:42:00 Test Item Value Reference Range Interpretation Comments MCH (test code = MCH) 28.5 pg 27.0-31.0 [facility] MrlcycrMMUHPTEWXH4082-82-01 08:42:0033.6[facility]annHEMATOLOGY 2020-08-08 08:42:0014.4[facility] FtkiexgBQEHZYCNKB6391-28-14 08:42:33061Ninyhccl QhbpxqbQTZAFNQSEB8070-41-37 08:42:007.0[facility] XllfbkdCOEHIRMFSI5466-03-04 08:42:0071.1[facility] HffdpvhXBKMGAOBME5816-56-00 08:42:0016.3[facility] EUEHVEQAHD5654-91-09 08:42:008.0[facility] LeqniznYCGXUMASCY9125-73-48 08:42:004.0 [facility] JgkqqobNKVREPUNBM8321-69-42 08:42:004.7[facility]annHEMATOLOGY 2020-08-08 08:42:001.1[facility] NbldjoxZAYASDBOZO3888-46-93 08:42:000.5[facility] UxjmgcdLKYWSMAUWK1522-21-46 08:42:000.3[facility] HermannCHEM TLEVN0033-68-65 08:42:004.4[facility] HermannCHEM XPZYV1173-52-26 08:42:0080[facility]annCHEM XAECO3652-10-05 08:42:0034[facility]annCHEM DCWZB5184-05-84 08:42:0010.90 [facility]annCHEM PWYNQ5910-30-90 08:42:07525Wcwsrnvr HermannCHEM PANEL 2020-08-08 08:42:003.[facility] HermannCHEM DCNNJ5873-04-58 08:42:0099[facility]annCHEM VNVJZ7483-14-23 08:42:0033[facility]annCHEM BPDRH3152-54-37 08:42:008.1[facility]annCHEM VYLYB0298-67-97 08:42:009.[facility]annCHEM XEWUD9373-08-05 08:42:005[facility] ZlvwdeoUDFOGCMMNB0812-98-87 08:42:000.6 [facility] UnbbcvwUSUGJQKDAS0387-59-99 08:42:006.7[facility]annHEMATOLOGY 2020-08-08 08:42:002.53[facility] YucszjcPWMZQPNCLM0198-98-42 08:42:0084.8[facility] EqfedsdCYLNCBRWJW3486-79-84 08:42:00 Test Item Value Reference Range Interpretation Comments MCH (test code = MCH) 28.5 pg 27.0-31.0 [facility] EmcdagqSLQNUAUNRX6893-92-95 08:42:0033.6[facility]annHEMATOLOGY 2020-08-08 08:42:0014.4[facility] GugzdddJMUYODQGLY7509-64-00 08:42:78834Yqsalccj QvxfpvzQOCMFSSAZJ4260-47-83 08:42:007.0[facility] NlnivcdVDIUZWPVON4226-90-76 08:42:0071.1[facility] WouivymIVDMRCGPTT2608-39-56 08:42:0016.3[facility] JDESVSWPDT6631-72-49 08:42:008.0[facility] HniqgzzSWXKMDGFZY5789-23-91 08:42:004.0 [facility] RwmgdblBHDNPGIYXF3983-68-73 08:42:004.7[facility]annHEMATOLOGY 2020-08-08 08:42:001.1[facility] YubbfwgOYSUSJXPVE4675-37-68 08:42:000.5[facility] TbiarkhBZCRWJAJNP1733-76-67 08:42:000.3[facility] PklesoxEZJZVMRJYL0996-27-76 02:01:00 Test Item Value Reference Range Interpretation Comments PT (test code = PT) 13.2 s 12.0-14.7 [facility] LnimbjcBCEKNMVXJH9626-87-61 02:01:00 Test Item Value Reference Range Interpretation Comments INR (test code = INR) 1.00 1 0.85-1.17 [facility] UufhyrvDXLUPKOEKL6954-41-48 02:01:00 Test Item Value Reference Range Interpretation Comments PTT (test code = PTT) 29.8 s 22.9-35.8 [facility] YemkpktCTUKMXYVCC7201-00-30 02:01:000.6[facility] HermannIMMUNOLOGY 2020-08-08 02:01:00Negative *NA*(08/07/20 9:01 PM)[facility]annHEMATOLOGY 2020-08-08 02:01:00 Test Item Value Reference Range Interpretation Comments PT (test code = PT) 13.2 s 12.0-14.7 [facility] HospitalFsypeadQJSYKMJIYZ6182-47-46 02:01:00 Test Item Value Reference Range Interpretation Comments INR (test code = INR) 1.00 1 0.85-1.17 [facility] HospitalKzhflejHPKCFDTAIZ0169-40-35 02:01:00 Test Item Value Reference Range Interpretation Comments PTT (test code = PTT) 29.8 s 22.9-35.8 [facility] HospitalBaxmgeuZFHWRFLAWZ5241-10-23 02:01:000.[facility]annIMMUNOLOGY 2020-08-08 02:01:00Negative *NA*(08/07/20 9:01 PM)[facility]annHE[facility]OLOGY 2020-08-08 02:01:00 Test Item Value Reference Range Interpretation Comments PT (test code = PT) 13.2 s 12.0-14.7 [facility] HospitalKlwjqfmJUEEENOQZS7565-15-56 02:01:00 Test Item Value Reference Range Interpretation Comments INR (test code = INR) 1.00 1 0.85-1.17 [facility] HospitalGaklsuyYQQKKVTRTS1421-94-38 02:01:00 Test Item Value Reference Range Interpretation Comments PTT (test code = PTT) 29.8 s 22.9-35.8 [facility] HospitalYuphvicNOLKJVUDQB0782-25-81 02:01:000.[facility]annIM[facility] 2020-08-08 02:01:00Negative *NA*(08/07/20 9:01 PM)[facility]annCHEM PANEL 2020-08-07 21:23:0072[facility] HermannCHEM VZEFY7788-69-34 21:23:0028[facility]annCHEM LWSJB5988-20-39 21:23:009.63[facility]annCHEM MFQID2183-34-84 21:23:72003Cwmwqqbv HermannCHEM UBJHA2640-42-47 21:23:003.[facility]annCHEM GXLQR4365-81-98 21:23:0099[facility]annCHEM JEVSD9251-81-15 21:23:0032 [facility]annCHEM NTAQT3311-75-11 21:23:009.6[facility]annCHEM PANEL 2020-08-07 21:23:008.3[facility]annCHEM PRXFV4009-64-98 21:23:005[facility]annCHEM EGHAM4268-42-88 21:23:0072[facility]annCHEM EHJKO0581-64-87 21:23:0028[facility] HermannCHEM OKLCF6079-48-38 21:23:009.63[facility]annCHEM UXAEK3706-39-05 21:23:38220Svbtastn HermannCHEM KXEGB6198-68-44 21:23:003.6 [facility]annCHEM IAKZH1249-59-62 21:23:0099[facility]annCHEM PANEL 2020-08-07 21:23:0032[facility] HermannCHEM CKFAG7901-15-51 21:23:009.6[facility]annCHEM URZZO3602-72-94 21:23:008.3[facility]annCHEM GOMPU0891-78-35 21:23:005[facility]annCHEM JUMKF7072-71-03 21:23:0072[facility]annCHEM GPBBF7782-84-80 21:23:0028[facility]annCHEM SKMVN4527-50-00 21:23:009.63 [facility]annCHEM CFYZI2989-59-60 21:23:80024Cjoafobq HermannCHEM PANEL 2020-08-07 21:23:003.[facility] HermannCHEM FJJMO5904-39-38 21:23:0099[facility]annCHEM NUNHL3770-78-93 21:23:0032[facility]annCHEM HVSTX9860-54-72 21:23:009.6[facility]annCHEM JXESC0935-23-16 21:23:008.3[facility]annCHEM UUCPI4539-64-55 21:23:005[facility] NufkrksEGGLIGBTFZ3752-40-82 15:21:00Not Detected (08/07/20 10:21 AM)[facility] YdhnqjoJGXBUAEVBQ0716-12-61 15:21:00Not Detected (08/07/20 10:21 AM)[facility] PiyyqipSAIEJQCMAC0217-05-61 15:21:00Not Detected (08/07/20 10:21 AM)[facility] HermannCARDIAC HLCAAXA1609-04-98 08:08:0050 [facility]annCHEM VRQUC3230-60-33 08:08:00 Test Item Value Reference Range Interpretation Comments B/C Ratio (test code = B/C Ratio) 3 1 - [facility]annCHEM YTQIU7224-97-37 08:08:004.5[facility]annCHEM PANEL 2020-08-07 08:08:001.4[facility]annCHEM TOGHS1384-49-96 08:08:003.1[facility]annCHEM UJICH8167-37-01 08:08:00 Test Item Value Reference Range Interpretation Comments A/G Ratio (test code = A/G Ratio) 0.5 1 0.7-1.6 [facility]annCHEM IZCIE7609-00-05 08:08:0015[facility]annCHEM PANEL 2020-08-07 08:08:0016[facility]annCHEM OULTT1681-11-07 08:08:0082[facility]annCHEM VYTAG1857-68-47 08:08:000.4[facility]annCHEM RTOEM4141-73-52 08:08:001.7[facility]annCHEM CTFTW6128-70-52 08:08:003.8[facility] KQHOKEHZML7181-76-77 08:08:00 Test Item Value Reference Range Interpretation Comments PT (test code = PT) 13.0 s 12.0-14.7 [facility] ZwgovkwZXDKUWYPZX5297-80-76 08:08:00 Test Item Value Reference Range Interpretation Comments INR (test code = INR) 0.98 1 0.85-1.17 [facility] HiqwjbdQKIRAPUIRG3150-13-73 08:08:00 Test Item Value Reference Range Interpretation Comments PTT (test code = PTT) 30.5 s 22.9-35.8 [facility] QfvqhvuVYMKOYKHPD5603-03-35 08:08:000.1[facility] HermannCARDIAC ENZYMES 2020-08-07 08:08:0050[facility]annCHEM DLXLR2214-21-84 08:08:00 Test Item Value Reference Range Interpretation Comments B/C Ratio (test code = B/C Ratio) 3 1 - [facility] HermannCHEM LIRVB1664-89-41 08:08:004.5[facility]annCHEM PANEL 2020-08-07 08:08:001.4[facility] HermannCHEM MPXQE5191-49-81 08:08:003.1[facility]annCHEM QDBBO9154-80-34 08:08:00 Test Item Value Reference Range Interpretation Comments A/G Ratio (test code = A/G Ratio) 0.5 1 0.7-1.6 [facility]annCHEM RCXCA0508-90-60 08:08:0015[facility]annCHEM PANEL 2020-08-07 08:08:0016[facility]annCHEM NBSAU6597-03-15 08:08:0082[facility]annCHEM CRXRY1755-62-91 08:08:000.4[facility] HermannCHEM UHOCT6485-25-76 08:08:001.7[facility]annCHEM CXNXO4947-78-67 08:08:003.8[facility] IEMPMKPPTK8266-73-85 08:08:00 Test Item Value Reference Range Interpretation Comments PT (test code = PT) 13.0 s 12.0-14.7 [facility] QfvdtymBUEOEKSMQE4082-63-95 08:08:00 Test Item Value Reference Range Interpretation Comments INR (test code = INR) 0.98 1 0.85-1.17 [facility] TwzoxupGBXRVVDDXD8295-96-41 08:08:00 Test Item Value Reference Range Interpretation Comments PTT (test code = PTT) 30.5 s 22.9-35.8 [facility] UnsqimsGKPDOFKRTH5198-62-44 08:08:000.1[facility] HermannCARDIAC ENZYMES 2020-08-07 08:08:0050[facility]annCHEM GVTRB6601-07-33 08:08:00 Test Item Value Reference Range Interpretation Comments B/C Ratio (test code = B/C Ratio) 3 1 04-02 [facility] HermannCHEM CFWGR1154-05-27 08:08:004.5[facility] HermannCHEM PANEL 2020-08-07 08:08:001.4[facility] HermannCHEM YQGKK2959-35-69 08:08:003.1[facility] HermannCHEM VSBXN1228-69-23 08:08:00 Test Item Value Reference Range Interpretation Comments A/G Ratio (test code = A/G Ratio) 0.5 1 0.7-1.6 [facility] HermannCHEM MCBCI7257-53-80 08:08:0015[facility] HermannCHEM PANEL 2020-08-07 08:08:0016[facility] HermannCHEM VHZWA3242-79-22 08:08:0082[facility] HermannCHEM BBLAY8109-71-55 08:08:000.4[facility] HermannCHEM DVSPD7893-31-28 08:08:001.7[facility] HermannCHEM SNVXI0895-56-25 08:08:003.8[facility] EQYLFDNZXY6640-82-75 08:08:00 Test Item Value Reference Range Interpretation Comments PT (test code = PT) 13.0 s 12.0-14.7 [facility] IbexaapYLUHWUTUWB0684-74-81 08:08:00 Test Item Value Reference Range Interpretation Comments INR (test code = INR) 0.98 1 0.85-1.17 [facility] YawifgrCLXBGGUZHG1300-82-97 08:08:00 Test Item Value Reference Range Interpretation Comments PTT (test code = PTT) 30.5 s 22.9-35.8 [facility] FiyzmxzMBZCBRBEFV9155-62-15 08:08:000.1[facility]annHEMATOLOGY 2020-08-07 02:04:000.1[facility] EhphomrITKWIVBWXS6770-53-32 02:04:000.1[facility] QwggokcKDSMULUGJG5826-38-30 02:04:000.1[facility] HermannCHEM RIDNM6622-37-49 01:34:004.8[facility] HermannCHEM DPPDG4004-85-37 01:34:001.6[facility] HermannCHEM CJGEY8665-98-56 01:34:003.2[facility] HermannCHEM QNVGH7781-86-69 01:34:00 Test Item Value Reference Range Interpretation Comments A/G Ratio (test code = A/G Ratio) 0.5 1 0.7-1.6 [facility]annCHEM VCJVH4040-94-15 01:34:0014[facility] HermannCHEM PANEL 2020-08-07 01:34:0016[facility] HermannCHEM SQTTK0754-43-69 01:34:0085[facility] HermannCHEM JPUFZ0497-61-93 01:34:000.4[facility] HermannCHEM XQCRN6015-52-42 01:34:00<0.1[facility] HermannCHEM ZPTCV6507-59-71 01:34:004.8[facility] [place] [place] CHEM WIAWO6891-55-20 01:34:001.6[facility] HermannCHEM XVKCO9532-68-81 01:34:003.2 [facility]annCHEM NGVDB7192-86-07 01:34:00 Test Item Value Reference Range Interpretation Comments A/G Ratio (test code = A/G Ratio) 0.5 1 0.7-1.6 [facility] HermannCHEM SYHAZ1654-76-58 01:34:0014[facility] HermannCHEM PANEL 2020-08-07 01:34:0016[facility] HermannCHEM UEGSR2576-66-29 01:34:0085[facility] HermannCHEM NDPQY5109-54-53 01:34:000.4[facility] HermannCHEM UXXAW2483-81-50 01:34:00<0.1[facility] HermannCHEM BZBUO4443-11-05 01:34:004.8[facility] [place] [place] CHEM RLJRZ8758-81-43 01:34:001.6[facility] HermannCHEM PBFRG5739-16-08 01:34:003.2 [facility]annCHEM PJWVM7816-87-68 01:34:00 Test Item Value Reference Range Interpretation Comments A/G Ratio (test code = A/G Ratio) 0.5 1 0.7-1.6 [facility] HermannCHEM UIANP3964-04-69 01:34:0014[facility] HermannCHEM PANEL 2020-08-07 01:34:0016[facility] HermannCHEM JWVGI1748-36-98 01:34:0085[facility]CHE[facility] VZOLL6486-05-44 01:34:000.4[facility]CHE[facility] FZVVI8527-11-48 01:34:00<0.1[facility]annCARDIAC GDNPFIN9240-97-07 22:24:000.03[facility]annCHE[facility] SDJYI4983-87-48 22:24:001.6[facility] VdauujlJPKJPXJHQM1626-50-89 22:24:001.0[facility] JeybisqGAISGFMSRN8326-20-60 22:24:001.0[facility] JASOIJHBYH6294-16-58 22:24:00Moderate *ABN*(08/06/20 5:24 PM)[facility] YZPIGTOHQR4274-78-51 22:24:00 Test Item Value Reference Range Interpretation Comments PT (test code = PT) 12.9 s 12.0-14.7 [facility] QvkuzakIZFDYQSCJB9341-25-95 22:24:00 Test Item Value Reference Range Interpretation Comments INR (test code = INR) 0.97 1 0.85-1.17 [facility] QbrvsvePWNRTDSHDP9648-13-69 22:24:002.0[facility]annHEMATOLOGY 2020-08-06 22:24:000.0[facility] AfoldlzJGTCKADYYB0669-96-78 22:24:00Normal (08/06/20 5:24 PM)[facility] SyccsruSYWDHRLLRY7532-64-99 22:24:00Normal (08/06/20 5:24 PM)[facility]annCARDIAC KWMVXHV4882-87-22 22:24:000.03[facility] CHEM GZOIJ0073-96-77 22:24:001.6[facility] QwnzukaPPHRNUQSFM1892-87-04 22:24:001.0 [facility] NaacbcsSGBYOJQKME8191-75-80 22:24:001.0[facility]annHEMATOLOGY 2020-08-06 22:24:00Moderate *ABN*(08/06/20 5:24 PM)[facility]HE[facility]OLOGY 2020-08-06 22:24:00 Test Item Value Reference Range Interpretation Comments PT (test code = PT) 12.9 s 12.0-14.7 [facility] IdrtbboXORJFSMEJL0709-60-02 22:24:00 Test Item Value Reference Range Interpretation Comments INR (test code = INR) 0.97 1 0.85-1.17 [facility] HinlasiYNAOSCHDIB2081-34-20 22:24:002.0[facility]annHEMATOLOGY 2020-08-06 22:24:000.0[facility] QqcmhlyRGFTAMPXGE6903-73-08 22:24:00Normal (08/06/20 5:24 PM)[facility] FiuocogIYMPEPQPOE8761-81-11 22:24:00Normal (08/06/20 5:24 PM)[facility]annCARDIAC TYEHDOK6550-17-98 22:24:000.03[facility] CHEM JSFGD9745-50-84 22:24:001.6[facility] EamkitvHWJIKSVJTJ2424-23-74 22:24:001.0 [facility] PlbmtymQYQGKNXLLP6134-65-74 22:24:001.0[facility]annHEMATOLOGY 2020-08-06 22:24:00Moderate *ABN*(08/06/20 5:24 PM)[facility]HE[facility]OLOGY 2020-08-06 22:24:00 Test Item Value Reference Range Interpretation Comments PT (test code = PT) 12.9 s 12.0-14.7 [facility] QasvbyqXMZAAEONNM5050-97-91 22:24:00 Test Item Value Reference Range Interpretation Comments INR (test code = INR) 0.97 1 0.85-1.17 [facility] EoifoqnXXZGOTECKK3612-24-87 22:24:002.0[facility]annHEMATOLOGY 2020-08-06 22:24:000.0[facility] HhhfzcgDKGFWPPIJA1346-85-84 22:24:00Normal (08/06/20 5:24 PM)[facility] ZhbxntvMLPTXWRYHN7868-57-62 22:24:00Normal (08/06/20 5:24 PM)[facility]annCARDIAC ETJRONS8076-57-95 13:32:000.03[facility] CHEM KEHFF5122-81-11 13:32:37069Pgfnbvas HermannCHEM UIEMB5408-31-46 13:32:0025 [facility]annCHE[facility] BUYQR3119-37-61 13:32:009.66[facility]annCHEM PANEL 2020-07-24 13:32:62493Aomfnqfw HermannCHEM DLTTY9376-99-73 13:32:003.0[facility]annCHE[facility] HSCMT9068-45-34 13:32:0091[facility]annCHEM HCQQO9533-80-50 13:32:0032[facility]annCHEM AQRZS1150-03-62 13:32:0012.0[facility]annCHEM OCTEH3735-87-90 13:32:008.7[facility]annCHEM SHHOI7444-80-87 13:32:00 Test Item Value Reference Range Interpretation Comments B/C Ratio (test code = B/C Ratio) 3 1 6-25 [facility] BKHOT5838-47-35 13:32:004.9[facility]annCHEM PANEL 2020-07-24 13:32:001.5[facility]annCHEM DBHAT9967-90-50 13:32:003.4[facility]annCHEM HVQAZ3348-23-62 13:32:00 Test Item Value Reference Range Interpretation Comments A/G Ratio (test code = A/G Ratio) 0.4 1 0.7-1.6 [facility]CHE[facility] IKFMQ7363-22-43 13:32:0016[facility]annCHEM PANEL 2020-07-24 13:32:0022[facility]annCHEM XJASS8141-11-75 13:32:0088[facility]annCHEM PXVUB3281-43-73 13:32:000.5[facility]annCHEM XCUEI7531-39-29 13:32:005[facility] AgjdxzzAXRZKKNRER4260-35-21 13:32:006.2[facility] AIZYAISIEX0883-71-68 13:32:002.89[facility] NcxgrhtYPBHXBUBMA9593-99-36 13:32:00 8.4[facility] MptydflQIMJAWSADY3387-93-10 13:32:0024.1[facility]annHEMATOLOGY 2020-07-24 13:32:0083.3[facility] RknjeofPMNFBFLPOA6324-64-83 13:32:00 Test Item Value Reference Range Interpretation Comments MCH (test code = MCH) 29.0 pg 27.0-31.0 [facility] QhstaebOBDRFHVKZO7100-92-59 13:32:0034.8[facility]annHEMATOLOGY 2020-07-24 13:32:0013.6[facility] NwvbmpoWZYYXZDIGQ0179-82-44 13:32:78478Xxrdbgha TfurkfkGNBDHFKCFQ4097-49-56 13:32:006.6[facility] JfrrhpgFHVVIWHYUU3416-69-50 13:32:0073.5[facility] SvjskxoYDOOLVLBCX4478-27-12 13:32:0011.4[facility] AKYOSKBNPC2062-86-03 13:32:008.7[facility] YixfjtzSPATIXULAE9003-32-88 13:32:005.4 [facility] NzactbiOTCHOMQJVR5925-05-95 13:32:001.0[facility]annHEMATOLOGY 2020-07-24 13:32:004.5[facility] WzninnlMCJOOTOFFN0384-86-97 13:32:000.7[facility] TdqjmbaHUMVZSIMQU5325-07-37 13:32:000.5[facility] NrbjtmxNJAGBQZLLJ8727-31-98 13:32:000.3[facility] ApynbopFQMDWBMGSB3695-17-66 13:32:000.1[facility] CARDIAC AOPLQWA6805-25-52 13:32:000.03[facility]annCHEM EFFLR6223-65-85 13:32:21407Zuiqmthq HermannCHEM ZAEGM8549-98-35 13:32:0025[facility]annCHEM FQZYP0665-80-76 13:32:009.66[facility]annCHEM RFZKA8410-09-18 13:32:36795 [facility]annCHE[facility] MPPEW5493-19-36 13:32:003.0[facility]annCHEM PANEL 2020-07-24 13:32:0091[facility]annCHEM LRQJT6472-08-31 13:32:0032[facility]annCHEM LCMKS5761-24-47 13:32:0012.0[facility]annCHEM HOSHZ3221-18-97 13:32:008.7[facility]annCHEM PEDGI0116-26-54 13:32:00 Test Item Value Reference Range Interpretation Comments B/C Ratio (test code = B/C Ratio) 3 1 6-25 [facility] IFNHQ3138-57-43 13:32:004.9[facility] PANEL 2020-07-24 13:32:001.5[facility] SBOLA7522-58-57 13:32:003.4[facility] AISBA2549-32-98 13:32:00 Test Item Value Reference Range Interpretation Comments A/G Ratio (test code = A/G Ratio) 0.4 1 0.7-1.6 [facility] CUVOE1852-36-52 13:32:0016[facility] PANEL 2020-07-24 13:32:0022[facility] TWHAX8504-87-90 13:32:0088[facility] UVWKG9979-53-03 13:32:000.5[facility] BJFGL2133-40-47 13:32:005[facility] VtkjjicATHMSDQLBM7408-91-84 13:32:006.2[facility] [place] [place] TDRCKAWLAQ0238-73-22 13:32:002.89[facility] QwzomejWOCKEZKDCX1058-43-84 13:32:00 8.4[facility] YsrreanPOMKYPIHBH6902-38-84 13:32:0024.1[facility]annHEMATOLOGY 2020-07-24 13:32:0083.3[facility] FogrlwnKDCBKEAAAA9362-24-20 13:32:00 Test Item Value Reference Range Interpretation Comments MCH (test code = MCH) 29.0 pg 27.0-31.0 [facility] ZzejxhvYMKCBFTQGN3806-31-65 13:32:0034.8[facility]annHEMATOLOGY 2020-07-24 13:32:0013.6[facility] FrveofsGHCRSHSFGM9789-11-93 13:32:72124Juqgzyhz WxnwyqeJFDEDBJEGM7433-35-00 13:32:006.6[facility] AaixcrvXFTWMHPFTA1824-62-26 13:32:0073.5[facility] EzduxklNTDNGBQAEH4670-67-37 13:32:0011.4[facility] [place] GMZSUWYACZ4585-55-66 13:32:008.7[facility] JtnzwkiUOFHUTVBQT0450-74-81 13:32:005.4 [facility] SwwdvueHFSRUOHKLG6629-80-18 13:32:001.0[facility]annHEMATOLOGY 2020-07-24 13:32:004.5[facility] DubvaqcMQJYQZMXBJ8405-20-58 13:32:000.7[facility] SdyhsvcVWQLLMDBDA9293-81-02 13:32:000.5[facility] JzbzptaPZNZEAZPOD2129-30-00 13:32:000.3[facility] MinxmyyCOVLZVKOJS3257-29-08 13:32:000.1[facility] CARDIAC UQAJUWH4501-95-86 13:32:000.03[facility]CHE[facility] BPDON6811-71-32 13:32:37108Bpacpcfm HermannCHEM ENOAU5564-58-64 13:32:0025[facility] UKDGP7888-85-95 13:32:009.66[facility] MLNFP6414-57-10 13:32:63715 [facility] ORZLE3692-80-94 13:32:003.0[facility]CHE[facility] PANEL 2020-07-24 13:32:0091[facility] GLRCL9067-70-92 13:32:0032[facility] HQONE5416-65-58 13:32:0012.0[facility] XWFWW4965-23-40 13:32:008.7[facility] YWUCV4758-28-17 13:32:00 Test Item Value Reference Range Interpretation Comments B/C Ratio (test code = B/C Ratio) 3 1 6-25 [facility] GBZFS0842-98-16 13:32:004.9[facility]CHE[facility] PANEL 2020-07-24 13:32:001.5[facility] PTKCO1910-98-50 13:32:003.4[facility] HCXYQ4859-76-17 13:32:00 Test Item Value Reference Range Interpretation Comments A/G Ratio (test code = A/G Ratio) 0.4 1 0.7-1.6 [facility] ZSURD0903-83-12 13:32:0016[facility] PANEL 2020-07-24 13:32:0022[facility] WVEVL7120-17-91 13:32:0088[facility] LXNUY7311-58-13 13:32:000.5[facility] PZHSJ1472-03-60 13:32:005[facility] BbnlaulHOQARRSARG4811-98-46 13:32:006.2[facility] [place] RDEDTVLJKI0805-18-78 13:32:002.89[facility] MypmjylQROHIOSOAM2915-52-99 13:32:00 8.4[facility] MiomfnwGXLLVBLNJA9472-23-27 13:32:0024.1[facility]annHEMATOLOGY 2020-07-24 13:32:0083.3[facility] ZlahfqgMBYEUUVBLQ7427-99-74 13:32:00 Test Item Value Reference Range Interpretation Comments MCH (test code = MCH) 29.0 pg 27.0-31.0 [facility] TbdkxmcCSQBOCEIEO4371-15-76 13:32:0034.8[facility]annHEMATOLOGY 2020-07-24 13:32:0013.6[facility] XzrdxbdXLLCWNNRPA4240-55-59 13:32:27956Tjyuivns XhcdgqgNHWDCDRHYV3814-69-64 13:32:006.6[facility] VcodrgmKMRIRGCPMX4853-59-69 13:32:0073.5[facility] EhxcqwhPXYREWLCMB4591-45-47 13:32:0011.4[facility] RHJVVAVGVO5877-38-82 13:32:008.7[facility] PilszcmHMUZNKASSU1824-63-31 13:32:005.4 [facility] PrmwrxhIOZSCRXVGZ0829-34-00 13:32:001.0[facility]annHEMATOLOGY 2020-07-24 13:32:004.5[facility] NdllkwbKNIVNGDBQP2722-64-49 13:32:000.7[facility] ZtpwmfvLHRNGGOEAP3695-41-73 13:32:000.5[facility] QrifejrGERMLYKJUQ6668-23-85 13:32:000.3[facility] EojnkuzNXIVCMDLUJ1118-03-60 13:32:000.1[facility]CHE[facility] MYQNQ5267-82-16 08:13:99030Stgoiazd HermannCHEM ZQMFB8879-48-45 08:13:0026 [facility] NRQBY8250-70-98 08:13:009.23[facility]annCHE[facility] PANEL 2020-07-15 08:13:43662Miylxtek HermannCHEM FBCSW7088-24-19 08:13:003.8[facility] KNAWY3931-81-53 08:13:0097[facility] QTFUR9488-35-18 08:13:0028[facility] ZOEFM3227-20-18 08:13:009.0[facility] SERPX6570-13-54 08:13:0013.8[facility] GQJRF5003-51-39 08:13:006 [facility] YDNVV9612-84-04 08:13:44188Pdrwfzgn HermannCHEM PANEL 2020-07-15 08:13:0026[facility] ZLDAY4793-84-57 08:13:009.23[facility] AVWPB5239-39-16 08:13:18581Tmzlqllm HermannCHEM SMNYY1582-52-02 08:13:003.8[facility] DZEAF3112-15-89 08:13:0097[facility] LTCNH2721-47-58 08:13:0028[facility] RSFRR0941-76-04 08:13:009.0 [facility] JLHPR1649-57-50 08:13:0013.8[facility]annCHE[facility] PANEL 2020-07-15 08:13:006[facility] WXTKS2623-64-99 08:13:04582Xrwquwkc [facility]annCHE[facility] WZLSR2778-99-62 08:13:0026[facility] QPSCF4586-24-26 08:13:009.23[facility] ULVNB5857-16-66 08:13:38649Hrnvuotg [facility]annCHE[facility] BSRWC2263-86-54 08:13:003.8[facility]CHE[facility] FPXPC9870-89-04 08:13:0097 [facility] PTKNI6231-60-92 08:13:0028[facility]CHE[facility] PANEL 2020-07-15 08:13:009.0[facility] KKTFR0736-98-11 08:13:0013.8[facility]CHE[facility] WUSVQ5454-21-55 08:13:006[facility]annMOLECULAR DIAGNOSTIC 2020-07-14 22:34:00Negative (07/14/20 5:34 PM)[facility] STOOL 2020-07-14 22:34:00None Seen (07/14/20 5:34 PM)[facility]annMOLECULAR PDAWMGZNFR4955-46-17 22:34:00Negative (07/14/20 5:34 PM)[facility] AND QBMZF4941-39-09 22:34:00None Seen (07/14/20 5:34 PM)[facility]annMOLECULAR LGMRYCMJHW4066-34-68 22:34:00Negative (07/14/20 5:34 PM)[facility] AND ZDMXG6841-79-44 22:34:00None Seen (07/14/20 5:34 PM)[facility]CHE[facility] PANEL 2020-07-14 08:37:42765Xkmmsbiv HermannCHEM TRNHX1575-10-66 08:37:0030[facility] XNTRY3706-69-23 08:37:009.56[facility]CHE[facility] PEYUV2840-86-98 08:37:74147Rbzeocii HermannCHEM TREFD3337-69-62 08:37:003.4[facility]CHE[facility] MUFIZ0444-26-82 08:37:0099[facility]CHE[facility] FJOUD2211-32-16 08:37:0028 [facility] GVABF5084-73-22 08:37:008.6[facility]annCHE[facility] PANEL 2020-07-14 08:37:0012.4[facility]CHE[facility] QBRPW3559-65-88 08:37:005[facility] KYMHP5728-85-31 08:37:02907Qsdbdhog HermannCHEM JXXLZ3490-10-37 08:37:0030[facility]CHE[facility] WYGBL8366-63-86 08:37:009.56[facility]CHE[facility] SSEDH1302-99-62 08:37:19108Zncezkig HermannCHEM VLOAK1676-65-79 08:37:003.4 [facility] GQVZU5876-44-13 08:37:0099[facility]CHE[facility] PANEL 2020-07-14 08:37:0028[facility]CHE[facility] DKONC6635-74-03 08:37:008.6[facility] JVIZB8941-74-66 08:37:0012.4[facility]CHE[facility] QKEPF8376-89-20 08:37:005[facility] TKLEC9008-62-25 08:37:08294Mzyqefyi HermannCHEM BDZVA9368-72-00 08:37:0030[facility]CHE[facility] ETJSJ2056-87-93 08:37:009.56 [facility] WFEAG9474-59-65 08:37:80908Uidzpfbn HermannCHEM PANEL 2020-07-14 08:37:003.4[facility]CHE[facility] JBXHR7549-19-84 08:37:0099[facility]CHE[facility] GJHYI3196-18-46 08:37:0028[facility]CHE[facility] RPWTF4512-89-05 08:37:008.[facility]annCHE[facility] RSYAY2156-11-99 08:37:0012.4[facility]annCHE[facility] CREKH2516-30-40 08:37:005[facility] PGIKWE5363-27-30 01:30:00Light Yellow (07/13/20 8:30 PM)[facility] PZOSGR7282-51-18 01:30:00Clear (07/13/20 8:30 PM)[facility] EESWKI0323-09-80 01:30:00Colorless (07/13/20 8:30 PM)[facility] DYLNNN6913-78-19 01:30:60800Oceodjts [facility]annB[facility] GKBQVD7595-41-70 01:30:14414Dgxhrwve [facility] FDSPOM8101-84-29 01:30:00[place] (07/13/20 8:30 PM)[facility] XZISUV8481-17-68 01:30:00 23[facility] UTYXSI7768-43-86 01:30:0016[facility] FLUIDS 2020-07-14 01:30:0053[facility] SZNOSB8968-14-50 01:30:006[facility] CGPVFJ9241-70-60 01:30:002[facility] LEEYIN1852-26-10 01:30:00Light Yellow (07/13/20 8:30 PM)[facility] GQNOQR3101-25-16 01:30:00Clear (07/13/20 8:30 PM)[facility] LUPEZL2840-52-37 01:30:00 Colorless (07/13/20 8:30 PM)[facility] MLNSJW3073-68-19 01:30:65816 [facility] RHMYNN0357-04-74 01:30:52970Qsmxovmj [facility] FLUIDS 2020-07-14 01:30:00[place] (07/13/20 8:30 PM)[facility] FLUIDS 2020-07-14 01:30:0023[facility] GAWLSV6978-30-86 01:30:0016[facility] LEJMSK6368-48-15 01:30:0053[facility] BLLIKI0746-44-08 01:30:006[facility] AHULUV8785-21-05 01:30:002[facility] YTLXKX5506-82-69 01:30:00Light Yellow (07/13/20 8:30 PM)[facility] SCPTSU4733-85-28 01:30:00Clear (07/13/20 8:30 PM)[facility] FLUIDS 2020-07-14 01:30:00Colorless (07/13/20 8:30 PM)[facility] FLUIDS 2020-07-14 01:30:76972Dtnefhzd [facility]annB[facility] XUCBAE3468-52-29 01:30:98152Ajjtjpyh [facility] MZIPPU4116-61-87 01:30:00[place] (07/13/20 8:30 PM)[facility] BODY TUGZOA3372-07-36 01:30:0023[facility] FYLBZY0987-94-66 01:30:0016 [facility] VYMYDD5403-10-92 01:30:0053[facility] FLUIDS 2020-07-14 01:30:006[facility] SWILIF1020-37-87 01:30:002[facility] UXBJT9768-77-18 08:35:56722Gnhrenlq HermannCHEM OMLQR3349-47-16 08:35:0029[facility] LRRVE8392-61-85 08:35:009.77[facility]CHE[facility] JELWU1952-91-61 08:35:66034Rbqzgssl [facility]annCHEM BAMQG5197-52-78 08:35:003.4 [facility] PXTYS8373-88-85 08:35:0097[facility]annCHEM PANEL 2020-07-13 08:35:0031[facility]CHE[facility] KKVKV7333-18-62 08:35:008.8[facility]CHE[facility] FRLEW8701-24-53 08:35:008.4[facility]CHE[facility] LULZT5082-48-41 08:35:005[facility]CHE[facility] XGSZU4850-02-97 08:35:50602Vkkoiqdu HermannCHEM ZRAJS9751-16-24 08:35:0029[facility]CHE[facility] XRPAS7008-39-85 08:35:009.77 [facility] VJWKC6132-45-80 08:35:39924Cjlihvui HermannCHEM PANEL 2020-07-13 08:35:003.4[facility]CHE[facility] YXGJA5592-38-24 08:35:0097[facility]CHE[facility] RMXBZ8720-39-17 08:35:0031[facility]CHE[facility] WXRHU6640-55-30 08:35:008.8[facility]CHE[facility] UBEJD9396-39-79 08:35:008.4[facility]annCHE[facility] BUOWS9950-80-62 08:35:005[facility]CHE[facility] VLMSU8286-00-93 08:35:04996 [facility] VTWSA0485-11-23 08:35:0029[facility]annCHE[facility] PANEL 2020-07-13 08:35:009.77[facility]CHE[facility] JBPDC5380-03-25 08:35:81926Vuctvzmw [facility]CHE[facility] YGZEB6830-22-17 08:35:003.4[facility]CHE[facility] IWAWD0359-66-32 08:35:0097[facility]CHE[facility] XDBYM6195-84-45 08:35:0031[facility]CHE[facility] VGAOH6708-67-70 08:35:008.8[facility]CHE[facility] QMGTV2857-04-40 08:35:008.4 [facility]CHE[facility] WAHUP5453-52-71 08:35:005[facility] FLUIDS 2020-07-13 00:15:00Light Yellow (07/12/20 7:15 PM)[facility] FLUIDS 2020-07-13 00:15:00Clear (07/12/20 7:15 PM)[facility] BKIQEG1025-90-83 00:15:00Colorless (07/12/20 7:15 PM)[facility] VOZFHD0636-98-92 00:15:04040Hgogtcbh [facility] GCFAWU4554-07-74 00:15:92814Qgnrqqyf [facility] KKCZRI0804-20-56 00:15:0027[facility] CUDOQP5765-59-84 00:15:0015 [facility] KAMYOD7668-45-26 00:15:0052[facility] FLUIDS 2020-07-13 00:15:003[facility] BIQXUJ5496-04-67 00:15:00Few (07/12/20 7:15 PM)[facility] ABUZIH4182-06-65 00:15:00See Note 4(07/12/20 7:15 PM)[facility] GKFUQV6178-70-34 00:15:00[place] (07/12/20 7:15 PM) [facility] CXHBCB0822-62-49 00:15:00Light Yellow (07/12/20 7:15 PM) [facility] AYRIMG8955-90-42 00:15:00Clear (07/12/20 7:15 PM)[facility] ZKYLJK1912-63-13 00:15:00Colorless (07/12/20 7:15 PM)[facility] BODY RUWXZW8817-09-96 00:15:94766Jkxszxoz [facility] DMHHXH0842-73-90 00:15:00 247[facility] ISMEEW8592-13-79 00:15:0027[facility] FLUIDS 2020-07-13 00:15:0015[facility] KZNKBO5919-62-38 00:15:0052[facility] KYUQPW6978-59-43 00:15:003[facility] WKVISV1479-69-95 00:15:00Few (07/12/20 7:15 PM)[facility] FCKVEG7100-18-00 00:15:00See Note 4(07/12/20 7:15 PM)[facility] XHCSBX5519-89-59 00:15:00[place] (07/12/20 7:15 PM)[facility] MNVDRG6553-33-65 00:15:00Light Yellow (07/12/20 7:15 PM)[facility] UZAODJ6354-56-47 00:15:00Clear (07/12/20 7:15 PM)[facility] UDWGWG3305-24-27 00:15:00Colorless (07/12/20 7:15 PM)[facility] VWBEOR9680-32-14 00:15:21112Uxflkagq [facility] FLUIDS 2020-07-13 00:15:90797Mgsoqqcc [facility] KYRIOO7863-96-47 00:15:0027[facility] VEYEKK3663-43-70 00:15:0015[facility] SOSCSN1719-04-61 00:15:0052[facility] ERFSVK7915-59-06 00:15:003[facility] BJNPKF8987-62-30 00:15:00Few (07/12/20 7:15 PM)[facility] FLUIDS 2020-07-13 00:15:00See Note 4(07/12/20 7:15 PM)[facility] FLUIDS 2020-07-13 00:15:00[place] (07/12/20 7:15 PM)[facility] HkzqvwyMILUGJJWDQ7564-38-02 09:50:0074.0[facility] AndfamtUWNBNSOQPO4575-37-59 09:50:0014.8[facility] NIEVBJUJKT9756-92-03 09:50:007.1[facility] BaqqjrnMIYGTAQOXR6293-81-77 09:50:003.5 [facility] WwffybtALRQFBCVVB9379-05-87 09:50:000.6[facility]annHEMATOLOGY 2020-07-12 09:50:004.9[facility] UfvbtiqLNEQSPKMHA7875-47-84 09:50:001.0[facility] ZmumkmxHZKYKZWIMV8878-70-93 09:50:000.5[facility] ShokdcgHHGCWQKEJQ9279-97-88 09:50:000.2[facility] ImcvtyqTVRXXTSZUZ3058-89-82 09:50:006.7[facility] EFWAPYHOMN5973-26-09 09:50:002.86[facility] XstfjwmVUUINGCIGW5368-39-46 09:50:00 8.3[facility] AygvqmtEMNOANRIHC1695-45-70 09:50:0024.4[facility]annHEMATOLOGY 2020-07-12 09:50:0085.1[facility] LyyshjgNMEEGANURS1361-51-75 09:50:00 Test Item Value Reference Range Interpretation Comments MCH (test code = MCH) 29.0 pg 27.0-31.0 [facility] XdvanwiWRCCHWVNXX5140-04-09 09:50:0034.1[facility]annHEMATOLOGY 2020-07-12 09:50:0014.1[facility] ZgbylaoKUMKKTWYVD7753-50-84 09:50:71440Inbxdfox LyysswzQLXNZDJPSA4326-68-07 09:50:006.6[facility] WsufjknPWUJYAXPHK2695-14-15 09:50:0013.1[facility] WcjnawjDXWUXQUEJY1328-08-67 09:50:0074.0[facility] OMYVBZZDNK5635-19-32 09:50:0014.8[facility] JlsrzazWLWACAISEU2855-85-84 09:50:00 7.1[facility] PgunoipUKDJMKSOIL8296-15-40 09:50:003.5[facility]annHEMATOLOGY 2020-07-12 09:50:000.6[facility] DfjbvgeZNLXHGNXCI0204-30-02 09:50:004.9[facility] WgwinksQVMMGGYCLS1677-49-08 09:50:001.0[facility] FmkffltHGJZXETIDG4089-49-79 09:50:000.5[facility] FtlgferCWNHHDRZCH4454-04-16 09:50:000.2[facility] SCWGTOTNQP8003-20-41 09:50:006.7[facility] VrhqkelMXWXZKINJN7183-78-59 09:50:00 2.86[facility] WyciepwDHECAQVCRY9368-58-83 09:50:008.3[facility]annHEMATOLOGY 2020-07-12 09:50:0024.4[facility] SfcaoikOPGOWADLKV2716-69-46 09:50:0085.1[facility] PrziqfcINZTFDROOH4765-58-49 09:50:00 Test Item Value Reference Range Interpretation Comments MCH (test code = MCH) 29.0 pg 27.0-31.0 [facility] WbucayuAJEFLZCLVX9488-40-07 09:50:0034.1[facility]annHEMATOLOGY 2020-07-12 09:50:0014.1[facility] SxhyjbzFPXJCGICVB7554-51-26 09:50:17064Ugehocsz JaflcrnRCQAGVAUJX3616-61-46 09:50:006.6[facility] BrhmnzgFEPMOQTVEP7880-15-85 09:50:0013.1[facility] BairmbzMVRJIVWHUF4299-32-22 09:50:0074.0[facility] BZZDPDPPTB1125-96-65 09:50:0014.8[facility] FmgajsnCAYEGTYDSE4055-30-59 09:50:00 7.1[facility] UofkhydISLSIVTQYB6659-11-43 09:50:003.5[facility]annHEMATOLOGY 2020-07-12 09:50:000.6[facility] AnoyvjdGFNDRXQRJO6308-17-56 09:50:004.9[facility] ZgmclfuYGCKLKQJUE9843-59-32 09:50:001.0[facility] WzgmimcEQWWFCRKEH8867-16-29 09:50:000.5[facility] JrpwslgXPIINZQGFH3659-69-75 09:50:000.2[facility] RFRSJMAGIX1442-67-80 09:50:006.7[facility] DpkfmpdFCURXSBQSZ9756-40-55 09:50:00 2.86[facility] PhqffryBKZNIGLCKC0846-73-81 09:50:008.3[facility]annHEMATOLOGY 2020-07-12 09:50:0024.4[facility] GjmjgqbHDOSGGPYKD4917-45-69 09:50:0085.1[facility] StssxoqSKYBPRMUFN4680-99-03 09:50:00 Test Item Value Reference Range Interpretation Comments MCH (test code = MCH) 29.0 pg 27.0-31.0 [facility] HdcykoiMUUJQMIAEQ0849-62-31 09:50:0034.1[facility]annHEMATOLOGY 2020-07-12 09:50:0014.1[facility] CfjylgsUBMFBCMHWH6073-24-09 09:50:57655Ysrhsjvy NqqhoeoIBFCUVQOCE1080-53-00 09:50:006.6[facility] AecjbinUWQZDLDBKE8566-35-62 09:50:0013.1[facility] NKPHBL2684-79-02 00:50:00Light Yellow (07/11/20 7:50 PM)[facility] EAQHUS5732-50-05 00:50:00Slight Cloudy (07/11/20 7:50 PM)[facility] YQRWSJ7879-07-09 00:50:00Colorless (07/11/20 7:50 PM)[facility] ITVTVQ7635-76-11 00:50:44195Yvsewoqg [facility] FLUIDS 2020-07-12 00:50:0079[facility] VDVXBJ4719-75-10 00:50:0053[facility] FTZCZP5513-24-60 00:50:0010[facility] FHBDWJ2069-41-65 00:50:0033[facility] TGVWWN6140-00-90 00:50:003[facility] WXGASC1474-42-55 00:50:001[facility] KPDPBH5571-12-64 00:50:00[place] (07/11/20 7:50 PM)[facility] GSLNPQ7498-48-67 00:50:00Light Yellow (07/11/20 7:50 PM)[facility] NALNUD2709-13-73 00:50:00Slight Cloudy (07/11/20 7:50 PM)[facility] KCEDKP8416-31-20 00:50:00Colorless (07/11/20 7:50 PM)[facility] KQFAEB4042-35-34 00:50:07417Wjuphrkk [facility] NHRAXT4061-42-09 00:50:0079[facility] MPHURA6054-56-37 00:50:0053[facility] TVKEKA5247-15-28 00:50:0010[facility] FRFCSO0457-55-98 00:50:0033[facility] TLLOCS0497-79-30 00:50:003 [facility] RVZKYG8672-47-15 00:50:001[facility] FLUIDS 2020-07-12 00:50:00[place] (07/11/20 7:50 PM)[facility] FLUIDS 2020-07-12 00:50:00Light Yellow (07/11/20 7:50 PM)[facility] FLUIDS 2020-07-12 00:50:00Slight Cloudy (07/11/20 7:50 PM)[facility] FLUIDS 2020-07-12 00:50:00Colorless (07/11/20 7:50 PM)[facility] FLUIDS 2020-07-12 00:50:83052Szklsyil [facility] FTWLIP8263-71-78 00:50:0079[facility] DBXXPM5645-35-07 00:50:0053[facility] JDXVCB8569-85-06 00:50:0010[facility] XHGZBV4072-73-06 00:50:0033[facility] PTVHYL4555-62-16 00:50:003[facility] QKNPVX9119-91-32 00:50:001 [facility] VKXXEP2178-77-79 00:50:00[place] (07/11/20 7:50 PM)[facility] RsvmufbVNCJJIKARF0286-97-47 08:20:006.2[facility] DvspjvfKWVGIKSLQN2409-76-73 08:20:002.74[facility] UtljadjDGEMOUFKAG6538-75-38 08:20:008.0[facility] [place] JZUIWZBPKC8526-30-04 08:20:0023.1[facility] DxdrajtEHBFKURMML1728-62-26 08:20:00 84.4[facility] HcxyvxqAYBBOUSHJM4084-46-21 08:20:00 Test Item Value Reference Range Interpretation Comments MCH (test code = MCH) 29.2 pg 27.0-31.0 [facility] TuiqzalDDWZKIFIXG2546-61-33 08:20:0034.7[facility] 2020-07-11 08:20:0013.9[facility] RjeygumKYCHUSLINY8607-85-34 08:20:80046Rzureybt ZobtmnbODEUMLAEVV1554-93-17 08:20:006.8[facility] RacdvzmUJTYHIRVRR2785-88-84 08:20:0074.0[facility] MymmngvKDDVDUYVKC8227-27-10 08:20:0013.2[facility] AIWWAZQFXW8642-68-01 08:20:009.1[facility] MmjofsvHYGJLMZNGR9118-20-33 08:20:003.2 [facility] JvvgwytUNAKLYHOPF3546-60-49 08:20:000.5[facility] 2020-07-11 08:20:004.6[facility] TlfigebSXGWCRCQYA8303-29-21 08:20:000.8[facility] ClzekfsPYHSUIMYQZ7932-13-84 08:20:000.6[facility] UizgreqCBSUYAZSVL8534-00-72 08:20:000.2[facility] ThowxemXKUNCOIRGA4371-33-14 08:20:006.2[facility] RCWPVGGNUN4565-67-18 08:20:002.74[facility] WtgchstFFAGVAWTPP8813-87-83 08:20:00 8.0[facility] NhcjorcBQCYJSGFLB8781-29-15 08:20:0023.1[facility] 2020-07-11 08:20:0084.4[facility] YsquhxdJEKUMMIVUT1499-93-09 08:20:00 Test Item Value Reference Range Interpretation Comments MCH (test code = MCH) 29.2 pg 27.0-31.0 [facility] CqfvlswEBCFRTVIHS6670-81-42 08:20:0034.7[facility] 2020-07-11 08:20:0013.9[facility] EzigexhBEQZKSLECB2886-38-37 08:20:97087Wuhetfkf FqwqiueFCRZUWMHUJ2999-34-62 08:20:006.8[facility] EnceixiSEQDLFYIZP2537-01-66 08:20:0074.0[facility] JebjqbjLEZSEYJVYF3740-37-60 08:20:0013.2[facility] STEJSXYXZY5180-39-00 08:20:009.1[facility] TtighxvYRZRVTEHQB3872-26-95 08:20:003.2 [facility] WznvbcwZEEHEYFDTC2040-71-57 08:20:000.5[facility] 2020-07-11 08:20:004.6[facility] TwvfaxhJAEFCXWHCE5260-51-61 08:20:000.8[facility] GwdgpetDNCLGIFRDB0552-46-90 08:20:000.6[facility] QybhynfLLTUSVSOIF5508-06-67 08:20:000.2[facility] YcarnxiLKPUKXVNHF9416-25-06 08:20:006.2[facility] [place] WQBOYDZMNS2381-16-87 08:20:002.74[facility] DychmlaUGJIFFOBEC6730-29-85 08:20:00 8.0[facility] RvvxdqdVQAVFQJOPP1958-47-01 08:20:0023.1[facility] 2020-07-11 08:20:0084.4[facility] SxpctyzQYOAVTBOTX6812-33-15 08:20:00 Test Item Value Reference Range Interpretation Comments MCH (test code = MCH) 29.2 pg 27.0-31.0 [facility] AooonodTACRCHUSPN6628-80-04 08:20:0034.7[facility] 2020-07-11 08:20:0013.9[facility] BdxgoipOUNRIPOORJ0477-74-33 08:20:61004Kkihzzjo TmhnkweXYBBZKTUAF1943-31-80 08:20:006.8[facility] GfyilwyCBJQWGJOPN3622-27-85 08:20:0074.0[facility] NwokvwrBDEZONEFHI2619-36-49 08:20:0013.2[facility] NIQCTTOAPZ4048-41-18 08:20:009.1[facility] IdhtodmQIEINWPGCG6996-81-40 08:20:003.2 [facility] QfajpbrSIAWNDKRPJ8635-22-99 08:20:000.5[facility] 2020-07-11 08:20:004.6[facility] VquxaweIYYQZFXWBP1681-03-21 08:20:000.8[facility] CetwpocQPWEGJLBWT7445-41-12 08:20:000.6[facility] UyclhcrXDLBUKWIVE6720-54-51 08:20:000.2[facility] PvoztmgRWWSMGNXRW1909-09-95 14:52:006.6[facility] [place] QBLIADPHUK3784-24-83 14:52:002.76[facility] IacgjpeSWXADYGICS6939-36-61 14:52:00 8.1[facility] WzhsvbnIXGPKIOLZP8371-93-83 14:52:0023.3[facility] 2020-07-10 14:52:0084.2[facility] RrsyfppKJNNCISSPM2608-34-80 14:52:00 Test Item Value Reference Range Interpretation Comments MCH (test code = MCH) 29.3 pg 27.0-31.0 [facility] XwlxilgVCGKLHNAPP4227-02-85 14:52:0034.8[facility] 2020-07-10 14:52:0013.7[facility] XgfobgdBRHFGAHHQE9812-42-78 14:52:51334Jrtdaxuk YhltlkvGTKAAKSJOQ1766-72-64 14:52:006.6[facility] FoxywyeNEFJOLWUOE5188-88-59 14:52:00Normal (07/10/20 9:52 AM)[facility] YjoaqjgQCPNVVZYPL5417-56-69 14:52:00 Normal (07/10/20 9:52 AM)[facility] TtvnugzRQYFXEZCXQ5428-82-65 14:52:0076.0 [facility] GkzlnomRTDUPPAVRQ9406-34-72 14:52:0011.5[facility] 2020-07-10 14:52:008.9[facility] GzfnlrePNQTFFGGZU8089-17-63 14:52:003.1[facility] IakpcdxOGKHIMNJGY3365-44-47 14:52:000.5[facility] TstcyboMJSWQKPLXQ9311-43-54 14:52:005.1[facility] JgohrftXMPEZZBNNR4268-84-29 14:52:000.8[facility] XMJJXVSOTZ2452-09-31 14:52:000.6[facility] FqpwpetHDPTPXTHSB5426-79-79 14:52:000.2 [facility] QhbsvefVKZIXWFNWL4165-79-89 14:52:006.6[facility]HE[facility] 2020-07-10 14:52:002.76[facility] ErotpduUXXICFOUPL6398-70-21 14:52:008.1[facility] FchbzppWGCSUGFDGY1058-09-78 14:52:0023.3[facility] KzdjlinJTOUKFQNNZ9779-38-75 14:52:0084.2[facility] JrmrziqUCHVQKODXQ0514-17-07 14:52:00 Test Item Value Reference Range Interpretation Comments MCH (test code = MCH) 29.3 pg 27.0-31.0 [facility] CxdntmbABLRVQJIKQ7813-11-52 14:52:0034.8[facility] 2020-07-10 14:52:0013.7[facility] JbspvpiQGZWTXIKMH9924-21-43 14:52:63349Dzlkfhlc CkpzrteYWIGXNJVTO1476-73-11 14:52:006.6[facility] ZpuyaffMPNGHCQTYW4219-97-24 14:52:00Normal (07/10/20 9:52 AM)[facility] UdnbryiRPCKWMDZZK3271-16-91 14:52:00 Normal (07/10/20 9:52 AM)[facility] CgeijkzYQHCQJJJWZ3921-29-86 14:52:0076.0 [facility] PufoajwMVHCATLATA6327-03-52 14:52:0011.5[facility] 2020-07-10 14:52:008.9[facility] CfkconcFJFQOQGLZY5697-60-95 14:52:003.1[facility] QmagnnwAFUCMVSLGN7430-52-75 14:52:000.5[facility] AxwxcvuULKCBBMZLE9683-71-47 14:52:005.1[facility] LyrnolwATRPRGUQYR6139-05-43 14:52:000.8[facility] [place] HUMYJWZBGY7313-86-01 14:52:000.6[facility] EhvvrscMWHYBPJRCC3784-33-19 14:52:000.2 [facility] KiswqolQZAQCKQRLF4607-51-73 14:52:006.6[facility]HE[facility] 2020-07-10 14:52:002.76[facility] OmsnkknUSVMLFOHTG9063-44-06 14:52:008.1[facility] XzjsompTZSPLJHCRE3110-34-59 14:52:0023.3[facility] BuopqqvXSLFHNFJDE6396-74-54 14:52:0084.2[facility] UjjchqjHQPNBTJADJ7745-85-27 14:52:00 Test Item Value Reference Range Interpretation Comments MCH (test code = MCH) 29.3 pg 27.0-31.0 [facility] UlbgiyvNDSYDNVIFO9263-23-77 14:52:0034.8[facility]ann[facility] 2020-07-10 14:52:0013.7[facility] ZfxqxrcRXDDECAYJM3780-46-00 14:52:44098Zcrgxnne FdukuxfFRGEFUVHHX5022-00-74 14:52:006.6[facility] OspgoutIBCNHTJYKT4027-44-17 14:52:00Normal (07/10/20 9:52 AM)[facility] CoucniaFHZESJUYAK8938-74-34 14:52:00 Normal (07/10/20 9:52 AM)[facility] UlrqhxwWIUKUFORBP6405-23-86 14:52:0076.0 [facility] XoryjzrAYZOYRJHGQ8975-16-77 14:52:0011.5[facility] HermannHEMATOLOGY 2020-07-10 14:52:008.9[facility] ZergonyDARUIIMAUU7768-62-05 14:52:003.1[facility] AooecwwWKZWOYVZVT8570-77-98 14:52:000.5[facility] XcoalulEYNNHUQTMQ5040-05-84 14:52:005.1[facility] DxwhdviCTGNRXHZOB2353-23-06 14:52:000.8[facility] [place] LYEEIQOGJO4702-49-80 14:52:000.6[facility] DfwsdwbFXPWTCQFXN8219-96-15 14:52:000.2 [facility]annCHEM IPEEW3730-94-20 14:49:005.2[facility]annCHEM PANEL 2020-07-09 14:49:001.5[facility]annCHEM DTHCC7650-38-94 14:49:0013[facility]annCHEM MNKOQ4751-64-69 14:49:0011[facility]annCHEM JXPXK3824-82-71 14:49:0075[facility]annCHEM JYQHN1497-27-47 14:49:000.4[facility]annCHEM KBZUK2146-12-90 14:49:00 Test Item Value Reference Range Interpretation Comments B/C Ratio (test code = B/C Ratio) 4 1 6-25 [facility]CHE[facility] NGIEU3181-51-02 14:49:003.7[facility]annCHEM PANEL 2020-07-09 14:49:00 Test Item Value Reference Range Interpretation Comments A/G Ratio (test code = A/G Ratio) 0.4 1 0.7-1.6 [facility]annCHE[facility] FSMIO5687-47-68 14:49:004.1[facility]annCHEM PANEL 2020-07-09 14:49:005.2[facility]annCHE[facility] RVOKD0736-63-49 14:49:001.5[facility]annCHEM RBOCC5457-54-58 14:49:0013[facility]annCHEM TGFBA0837-95-83 14:49:0011[facility]annCHEM OIROL8382-94-12 14:49:0075[facility]annCHEM WAQMO8368-45-40 14:49:000.4[facility]annCHE[facility] JJBTF1035-91-28 14:49:00 Test Item Value Reference Range Interpretation Comments B/C Ratio (test code = B/C Ratio) 4 04-02 [facility]CHE[facility] CGAVG1059-67-64 14:49:003.7[facility]annCHEM PANEL 2020-07-09 14:49:00 Test Item Value Reference Range Interpretation Comments A/G Ratio (test code = A/G Ratio) 0.4 1 0.7-1.6 [facility]CHE[facility] KLPWG7288-53-53 14:49:004.1[facility]annCHEM PANEL 2020-07-09 14:49:005.2[facility]annCHEM MTRRY1006-84-01 14:49:001.5[facility]annCHEM WOMER1553-42-03 14:49:0013[facility]annCHE[facility] FVJTV9214-96-00 14:49:0011[facility]annCHEM FEWFR4858-11-24 14:49:0075[facility]annCHEM BSDYH8168-56-10 14:49:000.4[facility]annCHE[facility] PSMKV5082-44-90 14:49:00 Test Item Value Reference Range Interpretation Comments B/C Ratio (test code = B/C Ratio) 4 04-02 [facility] BFCZB9824-24-35 14:49:003.7[facility]annCHEM PANEL 2020-07-09 14:49:00 Test Item Value Reference Range Interpretation Comments A/G Ratio (test code = A/G Ratio) 0.4 1 0.7-1.6 [facility]CHE[facility] RNOQA8885-97-56 14:49:004.1[facility] HermannTOXICOLOGY 2020-07-09 09:57:0015.9[facility] BizycfnGEUFIPIPYO6738-47-91 09:57:0015.9[facility] DlmdnwiTILCCZXVQM2659-99-00 09:57:0015.9[facility] JnbmrhgJYIBXXNLSG5937-43-62 18:59:0015.4[facility] IwxywbjJRYGJBOZHW2501-64-49 18:59:0015.4[facility] [place] DBPBWRNYAE3109-23-67 18:59:0015.4[facility]annBLOOD BANK ZLIDKUC7875-19-80 11:40:00Negative (07/06/20 6:40 AM)[facility] SBEPGRU9126-86-84 11:40:00Negative (07/06/20 6:40 AM)[facility] FUVFYEB0224-41-43 11:40:00Negative (07/06/20 6:40 AM)[facility]annCARDIAC KVUYONL3657-14-49 11:07:00<0.02[facility]annCHEM HVTUT3754-69-96 11:07:001.8[facility] [place] CHEM DNGIW1940-81-09 11:07:005.3[facility]annCHEM DRRKQ7991-19-59 11:07:0048 [facility]CHE[facility] RQBCE7427-53-38 11:07:005.3[facility]annCHEM PANEL 2020-07-06 11:07:001.6[facility]annCHEM JRHER2286-40-66 11:07:003.7[facility]annCHEM HKLUU4109-05-59 11:07:00 Test Item Value Reference Range Interpretation Comments A/G Ratio (test code = A/G Ratio) 0.4 1 0.7-1.6 [facility]CHE[facility] DBXDC0694-22-78 11:07:0012[facility]annCHEM PANEL 2020-07-06 11:07:0013[facility]annCHEM BDKRF4512-57-98 11:07:0067[facility]annCHEM RGBTF1608-58-69 11:07:000.[facility]annCHEM TCRCR5397-27-38 11:07:00<0.1[facility]annCHEM DUORY7091-88-30 11:07:000.6[facility] [place] FYUOGSAHDG6322-90-55 11:07:00 Test Item Value Reference Range Interpretation Comments PTT (test code = PTT) 40.6 s 22.9-35.8 [facility] IvpivamAGYLJYSRLQ1669-15-87 11:07:00 Test Item Value Reference Range Interpretation Comments PT (test code = PT) 14.0 s 12.0-14.7 [facility] PvugcvoLYWFSUMHUF4925-34-14 11:07:00 Test Item Value Reference Range Interpretation Comments INR (test code = INR) 1.08 1 0.85-1.17 [facility] HermannCARDIAC URHAPLI7650-32-63 11:07:00<0.02[facility]annCHEM FFLKD2726-77-75 11:07:001.8[facility]annCHEM LAZUX1665-05-77 11:07:005.3 [facility]annCHE[facility] DJDMW3605-71-11 11:07:0048[facility]annCHEM PANEL 2020-07-06 11:07:005.3[facility] HermannCHEM DWESO1276-18-49 11:07:001.6[facility]annCHEM CRBJT1714-31-01 11:07:003.7[facility]annCHEM OKQBJ5664-03-84 11:07:00 Test Item Value Reference Range Interpretation Comments A/G Ratio (test code = A/G Ratio) 0.4 1 0.7-1.6 [facility]annCHE[facility] UNZEA0847-11-08 11:07:0012[facility]annCHEM PANEL 2020-07-06 11:07:0013[facility]annCHEM QQTLN8828-75-17 11:07:0067[facility]annCHEM EBJBQ2651-32-70 11:07:000.6[facility]annCHEM EMAVL7666-83-38 11:07:00<0.1[facility]annCHEM XPRPY9441-65-38 11:07:000.6[facility] [place] ZGJKYTBMPY3976-58-20 11:07:00 Test Item Value Reference Range Interpretation Comments PTT (test code = PTT) 40.6 s 22.9-35.8 [facility] IltvichEUSRBZWMAA7183-56-73 11:07:00 Test Item Value Reference Range Interpretation Comments PT (test code = PT) 14.0 s 12.0-14.7 [facility] YaxnlklLJMNVLVPYT1877-77-66 11:07:00 Test Item Value Reference Range Interpretation Comments INR (test code = INR) 1.08 1 0.85-1.17 [facility]annCARDIAC WIZEXJP8646-42-20 11:07:00<0.02[facility] HermannCHEM MXSHI8135-55-65 11:07:001.8[facility]annCHEM MEUOJ6116-07-03 11:07:005.3 [facility]annCHE[facility] XLGXG3696-96-97 11:07:0048[facility]annCHEM PANEL 2020-07-06 11:07:005.3[facility]annCHEM WSLUD8182-65-43 11:07:001.6[facility]annCHEM BIWFF2660-68-89 11:07:003.7[facility]annCHEM WNIUU4815-09-66 11:07:00 Test Item Value Reference Range Interpretation Comments A/G Ratio (test code = A/G Ratio) 0.4 1 0.7-1.6 [facility]annCHEM RMGSO1279-85-85 11:07:0012[facility] HermannCHEM PANEL 2020-07-06 11:07:0013[facility]annCHEM QCBFH4096-89-69 11:07:0067[facility]annCHEM TRRGS7186-64-47 11:07:000.6[facility] HermannCHEM GOBQU7497-61-94 11:07:00<0.1[facility] HermannCHEM PCKCG1722-81-95 11:07:000.6[facility] [place] CFIJQKKHYI3104-33-98 11:07:00 Test Item Value Reference Range Interpretation Comments PTT (test code = PTT) 40.6 s 22.9-35.8 [facility] KtwjlnzJXGHITLXMN9065-63-34 11:07:00 Test Item Value Reference Range Interpretation Comments PT (test code = PT) 14.0 s 12.0-14.7 [facility] IeaelhqNHSXPCTSBW8201-61-40 11:07:00 Test Item Value Reference Range Interpretation Comments INR (test code = INR) 1.08 1 0.85-1.17 [facility] (NA, K, CL, CO2, GLUCOSE, BUN, CREATININE, CA)2020-06-23 11:25:00 Test Item Value Reference Range Interpretation Comments NA (test code = 132 mmol/L 135-145 L 1480322066) K (test code = 3.1 mmol/L 3.5-5 L 4412348928) CL (test code = 95 mmol/L 98-108 L 9331293458) CO2 TOTAL (test code = 31 mmol/L 23-31 2739517825) AGAP (test code = 2-16 7568731212) BUN (test code = 37 mg/dL 7-23 H 1877350283) GLUCOSE (test code = 122 mg/dL 70-110 H 3663084655) CREATININE (test code = 10.66 mg/dL 0.6-1.25 H 1732946549) CALCIUM (test code = 8.9 mg/dL 8.6-10.6 6245025860) eGFR Calculation mL/min/1.73m2 (Non-) (test code = 1629275683) eGFR Calculation mL/min/1.73m2 () (test code = 6147079528) JALEEL (test code = JALEEL) Association of [...] tests). Lab Interpretation Abnormal (test code = 52101-3) [facility]2020-[facility]-15 11:25:00 Test Item Value Reference Range Interpretation Comments MAGNESIUM (test code = 3640786422) 2.3 mg/dL 1.7-2.4 Lab Interpretation (test code = Normal 14423-1) [facility] CenterPHOSPHORUS2020-09-15 11:25:00 Test Item Value Reference Range Interpretation Comments PHOSPHORUS (test code = 3491984136) 5.8 mg/dL 2.5-5 H Lab Interpretation (test code = Abnormal 93620-7) [facility] CenterDIFF CONSULT PEOKMFEJONEUIU9818-93-81 22:33:00 WBCs: Leukocytes are adequate in number. Toxic neutrophils, reactive lymphocytes and reactive monocytes are seen. RBCs: Normocytic normochromic anemia with mild poikilocytosis including occasional maria luz cells suggestive of anemia of chronic kidney disease. Platelets: Adequate in number.[facility] CenterVITAMIN D, 53-OM8553-61-14 16:40:00 Test Item Value Reference Range Interpretation Comments VIT D 25OH (test code = <13 25-80 L 52530-5) JALEEL (test code = JALEEL) Deficiency: <20 ng/mLInsufficiency: 20-24 ng/mLOptimal: 25-80 ng/mL Lab Interpretation (test Abnormal code = 99242-6) [facility]BAS[facility]EL (NA, K, CL, CO2, GLUCOSE, BUN, CREATININE, CA)2020-06-21 10:22:00 Test Item Value Reference Range Interpretation Comments NA (test code = 129 mmol/L 135-145 L 2235524796) K (test code = 3.3 mmol/L 3.5-5 L 2927487626) CL (test code = 94 mmol/L 98-108 L 7582699323) CO2 TOTAL (test code = 31 mmol/L 23-31 4879826687) AGAP (test code = 2-16 1829956701) BUN (test code = 39 mg/dL 7-23 H 0469646416) GLUCOSE (test code = 82 mg/dL 70-110 4265844751) CREATININE (test code = 11.37 mg/dL 0.6-1.25 H 2623613611) CALCIUM (test code = 8.6 mg/dL 8.6-10.6 8913323286) eGFR Calculation mL/min/1.73m2 (Non-) (test code = 7793092699) eGFR Calculation mL/min/1.73m2 () (test code = 7902750869) JALEEL (test code = JALEEL) Association of [...] tests). Lab Interpretation Abnormal (test code = 92620-8) [facility] CenterMAGNESIUM2020-09-13 10:22:00 Test Item Value Reference Range Interpretation Comments MAGNESIUM (test code = 2460401226) 2.5 mg/dL 1.7-2.4 H Lab Interpretation (test code = Abnormal 46022-8) [facility] CenterTROPONIN [id number] 04:36:00 Test Item Value Reference Range Interpretation Comments TROPONIN I (test 0.028 ng/mL See_Comment [Automated code = 5596890319) message] The system which generated this result [...] ? Lab Interpretation Normal (test code = 52922-7) [facility] CenterFERRITIN NAFXT1517-04-32 04:24:00 Test Item Value Reference Range Interpretation Comments FERRITIN (test code = 578.0 ng/mL 18-464 H 2068909280) JALEEL (test code = JALEEL) Biotin has been reported to cause a negative bias, interpret results relative to patient's use of biotin. Lab Interpretation (test Abnormal code = 76138-0) [facility] CenterTHYROID STIMULATING RVPXTAD9635-77-01 04:20:00 Test Item Value Reference Range Interpretation Comments TSH (test code = See_Comment [Automated message] 7533914861) The system [employer] generated this result transmitted ref erence range: 0.45 - 4 .70 mIU/L. The refe rence range was not u sed to interpret this result as normal/abnor mal. Lab Interpretation (test Normal code = 61752-1) [facility] CenterAMMONIA, [id number] 04:09:00 Test Item Value Reference Range Interpretation Comments AMMONIA (test code = 2815799394) <9 9-33 L Lab Interpretation (test code = Abnormal 67215-9) [facility] CenterPHOSPHORUS2020-09-13 03:48:00 Test Item Value Reference Range Interpretation Comments PHOSPHORUS (test code = 7175936923) 6.1 mg/dL 2.5-5 H Lab Interpretation (test code = Abnormal 16026-5) [facility] CenterN-TERMINAL LRY-KQK6439-75-12 23:46:00 Test Item Value Reference Range Interpretation Comments NT-proBNP (test code 9360 pg/mL See_Comment H [Autom ated = 6335867522) message] The system which generated this result transmitted reference range : <=125. The reference range was not used to interpret this result as normal/abnormal . JALEEL (test code = JALEEL) Biotin has been reported to cause a negative bias, interpret results relative to patient's use of biotin. Lab Interpretation Abnormal (test code = 97762-9) [facility] CenterCOVID-19 (ID NOW RAPID TESTING)2020-06-20 22:02:00 Test Item Value Reference Range Interpretation Comments SARS-CoV-2 Rapid ID NOW Not Detected Not Detected (test code = 61043-6) JALEEL (test code = JALEEL) ID NOW COVID-19 Assay is an isothermal nucleic acid amplification test intended for the qualitative detection of nucleic acid from SARS-CoV-2 viral RNA in nasopharyngeal (SUBSTATION INSPECTOR) specimens. It is used under Emergency Use [...] indicated. Lab Interpretation Normal (test code = 09658-7) [facility] CenterMAGNESIUM2020-09-12 21:20:00 Test Item Value Reference Range Interpretation Comments MAGNESIUM (test code = 7735175630) 2.4 mg/dL 1.7-2.4 Lab Interpretation (test code = Normal 83950-6) [facility] CenterTROPONIN A0445-08-41 20:43:00 Test Item Value Reference Range Interpretation Comments TROPONIN I (test 0.024 ng/mL See_Comment [Automated code = 7231690798) message] The system which generated this result [...] ? Lab Interpretation Normal (test code = 01878-4) [facility] CenterCOMP. METABOLIC PANEL (91877)2020-06-20 20:32:00 Test Item Value Reference Range Interpretation Comments NA (test code = 130 mmol/L 135-145 L 1011504017) K (test code = 2.9 mmol/L 3.5-5 LL 1275884157) CL (test code = 91 mmol/L 98-108 L 5088019794) CO2 TOTAL (test code = 31 mmol/L 23-31 3711628125) AGAP (test code = 2-16 1050980171) BUN (test code = 37 mg/dL 7-23 H 9591344755) GLUCOSE (test code = 100 mg/dL 70-110 8839282610) CREATININE (test code = 11.00 mg/dL 0.6-1.25 H 0309644483) TOTAL BILI (test code = 0.7 mg/dL 0.1-1.8 1719335011) CALCIUM (test code = 9.4 mg/dL 8.6-10.6 0455123780) T PROTEIN (test code = 5.1 g/dL 6.3-8.2 L 4641747700) ALBUMIN (test code = 2.6 g/dL 3.5-5 L 2174256874) ALK PHOS (test code = 68 U/L 34-122 7544550020) ALTv (test code = 14 U/L 5-50 1742-6) AST(SGOT) (test code = 26 U/L 13-40 2391600703) eGFR Calculation mL/min/1.73m2 (Non-) (test code = 1172439592) eGFR Calculation mL/min/1.73m2 () (test code = 8351923227) JALEEL (test code = JALEEL) Association of [...] tests). Lab Interpretation Abnormal (test code = 82459-3) [facility] CenterLIPASE, [id number] 20:32:00 Test Item Value Reference Range Interpretation Comments LIPASE (test code = 9457789027) <10 0-220 Lab Interpretation (test code = Normal 95412-0) [facility] CenteraPTT2020-09-12 20:31:00 Test Item Value Reference Range Interpretation Comments APTT Patient (test See_Comment [Automat ed code = 3173-2) message] The system which generated this result transmitted reference range : 23 - 38 Seconds . The reference range was not used to interpr et this result as normal/abnormal . JALEEL (test code = JALEEL) The [facility] patient population mean normal value for aPTT is 30 seconds. Lab Interpretation Normal (test code = 96992-6) [facility] CenterPROTHROMBIN TIME / [id number] 20:29:00 Test Item Value Reference Range Interpretation [...] tions. Lab Interpretation (test Normal code = 72183-1) [facility] CenterCBC WITH URBB8661-28-15 20:17:00 Test Item Value Reference Range Interpretation [...] RDW-SD (test code = 42.5 fL 38.5-51.6 89171-2) RDW-CV (test code = 13.6 % 12.1-15.4 788-0) PLT (test code = See_Comment [Automated 777-3) message] The sy stem which generated this result transmitted reference range : 150 - 328 10*3/ ?L. The reference r yared was not used to interpret this result as normal/abnormal . MPV (test code = 8.8 fL 9.8-13 L 52868-6) NRBC/100 WBC (test See_Comment [Automat ed code = 5626927708) message] The system which generated this result transmitted reference range : 0.0 - 10.0 /100 WBCs. The refer ence range was not u sed to interpret th is result as normal/abnormal . NRBC x10^3 (test code <0.01 See_Comment [Auto mated = 1235225319) message] The s ystem which generated this result transmitted reference range : 10*3/?L. The reference range was not used to interpret this result as normal/abnormal . GRAN MAT (NEUT) % 72.5 % (test code = 770-8) IMM GRAN % (test code 0.50 % = 0404466239) LYMPH % (test code = 14.8 % 736-9) MONO % (test code = 8.8 % 5905-5) EOS % (test code = 2.9 % 713-8) BASO % (test code = 0.5 % 706-2) GRAN MAT x10^3(ANC) 4.55 10*3/uL 1.99-6.95 (test code = 5048803125) IMM GRAN x10^3 (test 0.03 10*3/uL 0-0.06 code = 7383453134) LYMPH x10^3 (test code 0.93 10*3/uL 1.09-3.23 L = 731-0) MONO x10^3 (test code 0.55 10*3/uL 0.36-1.02 = 742-7) EOS x10^3 (test code = 0.18 10*3/uL 0.06-0.53 711-2) BASO x10^3 (test code 0.03 10*3/uL 0.01-0.09 = 704-7) Lab Interpretation Abnormal (test code = 68171-9) [facility] CenterXR CHEST 1 RR0592-33-02 20:04:45 No acute intrathoracic abnormality. Chest appears [...] intrathoracic abnormality. Chest appears similar to prior exams.[facility] CenterCHEM MJJXN6300-40-02 13:56:0097[facility] HermannCHEM PANEL 2020-05-21 13:56:0041[facility] HermannCHEM ACCNI5934-72-95 13:56:0010.50[facility] HermannCHEM ZNIML4810-10-98 13:56:30688Qbmmjixl HermannCHEM ITECL8076-24-44 13:56:003.2[facility] HermannCHEM VPFWO9832-90-18 13:56:0094[facility] HermannCHEM EZVHN0623-70-58 13:56:0028[facility] HermannCHEM WEWYG3188-79-18 13:56:009.5 [facility]annCHEM LDZEI0034-82-79 13:56:0014.2[facility] HermannCHEM PANEL 2020-05-21 13:56:005[facility]annCHEM YIGAC9200-63-13 13:56:005.4[facility] HermannCHEM NAQRU2482-33-72 13:56:002.3[facility]annCHEM JNDVL7775-37-80 13:56:0016[facility] HermannCHEM IFBVW7303-89-47 13:56:0026[facility]annCHEM ZFVIN9495-35-96 13:56:0082[facility]annCHEM FPVCW4529-45-59 13:56:000.4 [facility]annCHEM ZWCBY1320-20-34 13:56:000.1[facility]annCHEM PANEL 2020-05-21 13:56:000.3[facility] HermannCHEM DSAXH0996-75-64 13:56:003.1[facility] HermannCHEM MZUGS5211-86-38 13:56:00 Test Item Value Reference Range Interpretation Comments A/G Ratio (test code = A/G Ratio) 0.7 1 0.7-1.6 [facility]annCHEM LHNFD7077-17-87 13:56:0041[facility] HermannHEMATOLOGY 2020-05-21 13:56:005.3[facility] IjgkrzyHTWLTXSENV8711-27-73 13:56:002.56[facility] FwsisgtKRQCMOPMXN5550-97-22 13:56:007.6[facility] SxwxoadXIYYRQMZLC4695-10-24 13:56:0021.8[facility] PilnpdxCWRWWBRFMF1437-47-21 13:56:0085.2[facility] [place] MWWQMNWGQI0596-46-16 13:56:00 Test Item Value Reference Range Interpretation Comments MCH (test code = MCH) 29.6 pg 27.0-31.0 [facility] DqmkgsrFOZUHNRXHP4024-16-35 13:56:0034.8[facility] HermannHEMATOLOGY 2020-05-21 13:56:0013.9[facility] HegflflOKETSIZSTO2572-42-06 13:56:99969Axbnvjor CrefjteKJNZGSRYUS6039-17-57 13:56:007.1[facility] HsxdcgtFIGZPOYUPU7978-80-91 13:56:0067.4[facility] HomygydDKWFHQROSI4154-94-38 13:56:0015.2[facility] [place] MWXSBCCKJF0997-70-15 13:56:008.6[facility] NbceowmRZPXUBEOHZ6239-33-94 13:56:007.8 [facility] KzndoquHPRFMRYLTV6405-12-39 13:56:001.0[facility] HermannHEMATOLOGY 2020-05-21 13:56:003.6[facility] HvexwixEQXYCAJGPY5723-62-98 13:56:000.8[facility] WtfibgjOLBENCCSVZ1113-64-13 13:56:000.5[facility] CpukgcaDKKVZYXKNU2058-61-29 13:56:000.4[facility] QstlbogAOZWESJRIY8474-96-63 13:56:000.1[facility] [place] VCYCUIVOKK3198-93-63 13:56:007.6[facility] PynqoevYUMYWRPKMD7563-82-63 13:56:00 21.8[facility] VybupyeNUNIRGLVGJ7521-10-25 13:56:0085.2[facility] HermannHEMATOLOGY 2020-05-21 13:56:00 Test Item Value Reference Range Interpretation Comments MCH (test code = MCH) 29.6 pg 27.0-31.0 [facility] SmahrrlWRBHIQWLIM4439-12-87 13:56:0034.8[facility]annHEMATOLOGY 2020-05-21 13:56:0013.9[facility] ZoeyedrGWHRPVOOCF8542-78-21 13:56:86269Dilnzsrg DroyellOAXXFPGACV5763-92-16 13:56:007.1[facility] DhaozdrBFFIVGBGLA2397-34-90 13:56:0067.4[facility] VsyedhaMZJKNUVLHW6975-52-64 13:56:0015.2[facility] [place] PZGTIEKWXW1016-06-00 13:56:008.6[facility] ThtfoqmYZMNLEDHZY1630-89-62 13:56:007.8 [facility] PynskgfEDVZAHQGCQ2883-90-84 13:56:001.0[facility] HermannHEMATOLOGY 2020-05-21 13:56:003.6[facility] LuruoxoTFHKVUDTGE1554-57-15 13:56:000.8[facility] KglmjgoPOWBTPSSTH1182-03-59 13:56:000.5[facility] HpfckvnPXCNHIYEYL7976-92-55 13:56:000.4[facility] JugqefaYDYQPYKCNC7179-33-90 13:56:000.1[facility] HermannCHEM NACTX9599-36-17 13:56:0097[facility] HermannCHEM GEFDC1066-44-69 13:56:0041 [facility]annCHEM TLIJU7015-80-12 13:56:0010.50[facility] HermannCHEM PANEL 2020-05-21 13:56:47535Laaiegqn HermannCHEM FKMJI1870-06-25 13:56:003.2[facility] HermannCHEM CWKHW2298-54-07 13:56:0094[facility] HermannCHEM VCWMP4245-81-53 13:56:0028[facility] HermannCHEM WQYBI0732-10-81 13:56:009.5[facility] HermannCHEM XPUFH6295-04-35 13:56:0014.2[facility] HermannCHEM JMXHV3241-00-20 13:56:005 [facility]annCHEM CIPZA2366-07-54 13:56:005.4[facility] HermannCHEM PANEL 2020-05-21 13:56:002.3[facility] HermannCHEM BKDZX3021-64-89 13:56:0016[facility] HermannCHEM CBTUI3899-29-76 13:56:0026[facility] HermannCHEM HBAGV8161-72-50 13:56:0082[facility] HermannCHEM VOCHK6831-03-90 13:56:000.4[facility] HermannCHEM MUCOM0712-78-34 13:56:000.1[facility] HermannCHEM NOEIG2622-14-67 13:56:000.3 [facility]annCHEM EKHRR3860-41-11 13:56:003.1[facility] HermannCHEM PANEL 2020-05-21 13:56:00 Test Item Value Reference Range Interpretation Comments A/G Ratio (test code = A/G Ratio) 0.7 1 0.7-1.6 [facility]annCHEM UICAG6817-34-65 13:56:0041[facility] HermannHEMATOLOGY 2020-05-21 13:56:005.3[facility] UhgdyolMVPZNKTPDA8735-13-42 13:56:002.56[facility] BoswbmnOSASRLHNTU7155-15-26 13:56:007.6[facility] ElzaixiANBYBIEGJE0236-19-24 13:56:0021.8[facility] YlbodiqSEEWURPCRU8674-57-53 13:56:0085.2[facility] [place] HEZDQXTZPE6870-73-07 13:56:00 Test Item Value Reference Range Interpretation Comments MCH (test code = MCH) 29.6 pg 27.0-31.0 [facility] PslmloqPDMYKCBLXM2844-35-61 13:56:0034.8[facility]annHEMATOLOGY 2020-05-21 13:56:0013.9[facility] EkfpfwnLYESJYNWQV3713-45-67 13:56:41354Qyuusldo UsbkbqoLAZLVFNXGK1986-63-11 13:56:007.1[facility] KrgazlxRMNBLPZSHI0848-51-55 13:56:0067.4[facility] DrcivppZIYKAUXQQB0254-98-61 13:56:0015.2[facility] GJHKOPZKDN8462-61-75 13:56:008.6[facility] VxmstugFVOACBFINX6774-51-89 13:56:007.8 [facility] UzlsojyGLLLWLGWIV3583-69-24 13:56:001.0[facility]annHEMATOLOGY 2020-05-21 13:56:003.6[facility] CrcwsruSYLYZCVBFX5785-66-69 13:56:000.8[facility] CzdlpsaEAELERCGCL0963-75-38 13:56:000.5[facility] RhhnovvUPCMBBTYCP8200-10-61 13:56:000.4[facility] HrwvbpkXGXGPHISJJ3377-65-99 13:56:000.1[facility]annCHEM QTJVG3405-84-82 13:56:0097[facility]annCHEM UQNVV1739-52-39 13:56:0041 [facility]annCHEM VSLXA2496-39-17 13:56:0010.50[facility]annCHEM PANEL 2020-05-21 13:56:71751Trvtafyq HermannCHEM VFSVD3347-91-18 13:56:003.2[facility]annCHEM TTWPY5083-02-19 13:56:0094[facility]annCHEM SDFMZ8480-15-73 13:56:0028[facility]annCHEM HTBDT0152-26-99 13:56:009.5[facility]annCHEM OJUXW1363-36-96 13:56:0014.2[facility]annCHEM VZDYL2316-68-46 13:56:005 [facility]annCHEM LIUAH3809-44-69 13:56:005.4[facility]annCHEM PANEL 2020-05-21 13:56:002.3[facility]annCHEM FTHPI8486-15-76 13:56:0016[facility]annCHEM TBZWM7755-06-59 13:56:0026[facility]annCHEM URUZV1385-51-80 13:56:0082[facility]annCHEM KENCS6520-01-72 13:56:000.4[facility]annCHEM LOEFF4643-86-54 13:56:000.1[facility]annCHEM CMJJB3324-78-05 13:56:000.3 [facility]annCHEM MRZQA2102-24-35 13:56:003.1[facility]annCHEM PANEL 2020-05-21 13:56:00 Test Item Value Reference Range Interpretation Comments A/G Ratio (test code = A/G Ratio) 0.7 1 0.7-1.6 [facility]annCHEM FBTAB6291-69-27 13:56:0041[facility]annHEMATOLOGY 2020-05-21 13:56:005.3[facility] JfciynkPOUKXFXVQF9539-43-92 13:56:002.56[facility] HermannCT ABDOMEN PELVIS W WO TRUWSZJF9355-96-65 20:59:48 Significant interval decrease in size of [...] reviewed this study and agree with theabove report.[facility] (NA, K, CL, CO2, GLUCOSE, BUN, CREATININE, CA)2020-03-30 11:53:00 Test Item Value Reference Range Interpretation Comments NA (test code = 130 mmol/L 135-145 L 2026265603) K (test code = 4.5 mmol/L 3.5-5 9354110537) CL (test code = 96 mmol/L 98-108 L 2777253535) CO2 TOTAL (test code = 28 mmol/L 23-31 1608687328) AGAP (test code = 2-16 8513704522) BUN (test code = 35 mg/dL 7-23 H 0449104141) GLUCOSE (test code = 96 mg/dL 70-110 5355420904) CREATININE (test code = 10.23 mg/dL 0.6-1.25 H 2084852858) CALCIUM (test code = 9.1 mg/dL 8.6-10.6 8333817533) eGFR Calculation mL/min/1.73m2 (Non-) (test code = 5883831247) eGFR Calculation mL/min/1.73m2 () (test code = 2554532836) JALEEL (test code = JALEEL) Association of [...] tests). Lab Interpretation Abnormal (test code = 98231-2) [facility] Test Item Value Reference Range Interpretation Comments MAGNESIUM (test code = 3944205528) 2.3 mg/dL 1.7-2.4 Lab Interpretation (test code = Normal 99691-0) [facility] 11[facility]53:00 Test Item Value Reference Range Interpretation Comments PHOSPHORUS (test code = 7000008501) 4.6 mg/dL 2.5-5 Lab Interpretation (test code = Normal 80531-9) [facility] [id number] 20:02:00 Test Item Value Reference Range Interpretation Comments Blood Culture-Aerobic No organisms No growth Previo us (test code = 37875-5) isolated prelim inary verified result was Culture [...] Culture-Anaerobic isolated preliminar y (test code = 88624-4) verifi ed result was Culture In Progress [...] CDT Lab Interpretation Normal (test code = 21587-1) [facility] CULTURE [id number] 20:02:00 Test Item Value Reference Range Interpretation Comments Blood Culture-Aerobic No organisms No growth Previo us (test code = 26165-9) isolated prelim inary verified result was Culture [...] Culture-Anaerobic isolated preliminar y (test code = 32001-2) verifi ed result was Culture In Progress [...] CDT Lab Interpretation Normal (test code = 32504-5) [facility] WITH [id number] 11:50:00 Test Item Value Reference Range Interpretation [...] RDW-SD (test code = 47.4 fL 38.5-51.6 48779-9) RDW-CV (test code = 15.1 % 12.1-15.4 788-0) PLT (test code = See_Comment [Automated 777-3) message] The sy stem which generated this result transmitted reference range : 150 - 328 10*3/ ?L. The reference r yared was not used to interpret this result as normal/abnormal . MPV (test code = 9.3 fL 9.8-13 L 30179-6) NRBC/100 WBC (test See_Comment [Automat ed code = 0851332770) message] The system which generated this result transmitted reference range : 0.0 - 10.0 /100 WBCs. The refer ence range was not u sed to interpret th is result as normal/abnormal . NRBC x10^3 (test code <0.01 See_Comment [Auto mated = 3550504542) message] The s ystem which generated this result transmitted reference range : 10*3/?L. The reference range was not used to interpret this result as normal/abnormal . GRAN MAT (NEUT) % 73.9 % (test code = 770-8) IMM GRAN % (test code 2.80 % = 0608667389) LYMPH % (test code = 11.3 % 736-9) MONO % (test code = 7.7 % 5905-5) EOS % (test code = 3.5 % 713-8) BASO % (test code = 0.8 % 706-2) GRAN MAT x10^3(ANC) 4.83 10*3/uL 1.99-6.95 (test code = 4726975045) IMM GRAN x10^3 (test 0.18 10*3/uL 0-0.06 H code = 8532519304) LYMPH x10^3 (test code 0.74 10*3/uL 1.09-3.23 L = 731-0) MONO x10^3 (test code 0.50 10*3/uL 0.36-1.02 = 742-7) EOS x10^3 (test code = 0.23 10*3/uL 0.06-0.53 711-2) BASO x10^3 (test code 0.05 10*3/uL 0.01-0.09 = 704-7) Lab Interpretation Abnormal (test code = 81666-5) [facility] METABOLIC PANEL (NA, K, CL, CO2, GLUCOSE, BUN, CREATININE, CA)2020-03-29 11:30:00 Test Item Value Reference Range Interpretation Comments NA (test code = 131 mmol/L 135-145 L 4865355654) K (test code = 4.1 mmol/L 3.5-5 8963503637) CL (test code = 96 mmol/L 98-108 L 1287350168) CO2 TOTAL (test code = 28 mmol/L 23-31 8412409044) AGAP (test code = 2-16 4991574306) BUN (test code = 26 mg/dL 7-23 H 2337809158) GLUCOSE (test code = 84 mg/dL 70-110 3223937242) CREATININE (test code = 7.98 mg/dL 0.6-1.25 H 3987498759) CALCIUM (test code = 9.4 mg/dL 8.6-10.6 1040359955) eGFR Calculation mL/min/1.73m2 (Non-) (test code = 3105269421) eGFR Calculation mL/min/1.73m2 () (test code = 0329887868) JALEEL (test code = JALEEL) Association of [...] tests). Lab Interpretation Abnormal (test code = 53719-0) [facility] Test Item Value Reference Range Interpretation Comments MAGNESIUM (test code = 0525108451) 2.3 mg/dL 1.7-2.4 Lab Interpretation (test code = Normal 73217-2) [facility] 11:30:00 Test Item Value Reference Range Interpretation Comments PHOSPHORUS (test code = 7986963636) 4.4 mg/dL 2.5-5 Lab Interpretation (test code = Normal 82828-4) [facility] CenterHEPAT[facility]CTION PANEL (82893) (ALB,T.PRO,BILI T,BU/BC,ALT,AST,ALK PHOS)2020-03-28 19:02:00 Test Item Value Reference Range Interpretation Comments TOTAL BILI (test code = 0086464929) 0.4 mg/dL 0.1-1.1 BILI UNCON (test code = 6154673841) 0.5 mg/dL 0.1-1.1 BILI CONJ (test code = 6066971693) 0.0 mg/dL 0-0.3 T PROTEIN (test code = 3474136559) 5.5 g/dL 6.3-8.2 L ALBUMIN (test code = 1252832877) 2.9 g/dL 3.5-5 L ALK PHOS (test code = 1794450628) 95 U/L 34-122 ALTv (test code = 1742-6) 15 U/L 5-50 AST(SGOT) (test code = 4832985266) 30 U/L 13-40 Lab Interpretation (test code = Abnormal 85326-8) [facility] (NA, K, CL, CO2, GLUCOSE, BUN, CREATININE, CA)2020-03-28 11:24:00 Test Item Value Reference Range Interpretation Comments NA (test code = 132 mmol/L 135-145 L 4866800787) K (test code = 4.1 mmol/L 3.5-5 6303404449) CL (test code = 95 mmol/L 98-108 L 5900521384) CO2 TOTAL (test code = 27 mmol/L 23-31 9379364679) AGAP (test code = 2-16 6406648672) BUN (test code = 39 mg/dL 7-23 H 4854791488) GLUCOSE (test code = 83 mg/dL 70-110 6170669373) CREATININE (test code = 9.62 mg/dL 0.6-1.25 H 6694011347) CALCIUM (test code = 8.8 mg/dL 8.6-10.6 7181914118) eGFR Calculation mL/min/1.73m2 (Non-) (test code = 0718455860) eGFR Calculation mL/min/1.73m2 () (test code = 2633676545) JALEEL (test code = JALEEL) Association of [...] tests). Lab Interpretation Abnormal (test code = 71727-5) [facility]2020-[facility]-20 11:24:00 Test Item Value Reference Range Interpretation Comments MAGNESIUM (test code = 0878273345) 2.4 mg/dL 1.7-2.4 Lab Interpretation (test code = Normal 75537-5) [facility]-20 11:24:00 Test Item Value Reference Range Interpretation Comments PHOSPHORUS (test code = 6501393141) 4.8 mg/dL 2.5-5 Lab Interpretation (test code = Normal 50942-1) [facility] WITH [id number] 10:58:00 Test Item Value Reference Range Interpretation [...] RDW-SD (test code = 47.8 fL 38.5-51.6 21906-6) RDW-CV (test code = 15.2 % 12.1-15.4 788-0) PLT (test code = See_Comment [Automated 777-3) message] The sy stem which generated this result transmitted reference range : 150 - 328 10*3/ ?L. The reference r yared was not used to interpret this result as normal/abnormal . MPV (test code = 9.0 fL 9.8-13 L 40838-7) NRBC/100 WBC (test See_Comment [Automat ed code = 0950048114) message] The system which generated this result transmitted reference range : 0.0 - 10.0 /100 WBCs. The refer ence range was not u sed to interpret th is result as normal/abnormal . NRBC x10^3 (test code <0.01 See_Comment [Auto mated = 5690698640) message] The s ystem which generated this result transmitted reference range : 10*3/?L. The reference range was not used to interpret this result as normal/abnormal . GRAN MAT (NEUT) % 70.6 % (test code = 770-8) IMM GRAN % (test code 1.80 % = 0578393392) LYMPH % (test code = 11.2 % 736-9) MONO % (test code = 8.9 % 5905-5) EOS % (test code = 6.9 % 713-8) BASO % (test code = 0.6 % 706-2) GRAN MAT x10^3(ANC) 4.84 10*3/uL 1.99-6.95 (test code = 2445744313) IMM GRAN x10^3 (test 0.12 10*3/uL 0-0.06 H code = 2499143738) LYMPH x10^3 (test code 0.77 10*3/uL 1.09-3.23 L = 731-0) MONO x10^3 (test code 0.61 10*3/uL 0.36-1.02 = 742-7) EOS x10^3 (test code = 0.47 10*3/uL 0.06-0.53 711-2) BASO x10^3 (test code 0.04 10*3/uL 0.01-0.09 = 704-7) Lab Interpretation Abnormal (test code = 34649-2) [facility] B Surface Antibody (HBsAb)2020-03-27 23:22:00 Test Item Value Reference Range Interpretation Comments HBsAB (test code = Positive 3766857680) HBsAb mIU/mL Semi-Quantitative (test code = 8373551734) JALEEL (test code = Interpretation: JALEEL) ?Hepatitis B Surface Antibody ? Negative - Patient is considered to be not immune to infection with HBV. ? ? Positive - Anti-HBs detected at greater than or equal to 12 mIU/mL. ?Patient is considered to be immune to infection with HBV. ? [facility] B Surface Antigen (HBsAg)2020-03-27 23:04:00 Test Item Value Reference Range Interpretation Comments HBsAg Semi-Quantitative (test code = Negative Negative 5195-3) [facility]CT [facility] PEL[facility] W WO [id number] 19:16:24 1. ?Interval development of nonenhancing, hypodensity [...] reviewed this study and agree with theabove report.[facility]MAG[facility] 2020-03-27 12:47:00 Test Item Value Reference Range Interpretation Comments MAGNESIUM (test code = 8803953522) 2.6 mg/dL 1.7-2.4 H Lab Interpretation (test code = Abnormal 29780-3) [facility] CenterB[facility] FLUID CULTURE(AEROBIC/ANAEROBIC) 2020-03-27 12:46:00 Test Item Value Reference Range Interpretation Comments BODY FLUID CULT No organisms isolated (test code = 611-4) Gram stain (test Few Polymorphonuclear code = 664-3) leukocytes [facility]EL (NA, K, CL, CO2, GLUCOSE, BUN, CREATININE, CA)2020-03-27 12:12:00 Test Item Value Reference Range Interpretation Comments NA (test code = 129 mmol/L 135-145 L 9058530950) K (test code = 4.0 mmol/L 3.5-5 2493328295) CL (test code = 92 mmol/L 98-108 L 5610472112) CO2 TOTAL (test code = 29 mmol/L 23-31 6272130666) AGAP (test code = 2-16 6493372945) BUN (test code = 50 mg/dL 7-23 H 8367286228) GLUCOSE (test code = 75 mg/dL 70-110 2539928541) CREATININE (test code = 10.70 mg/dL 0.6-1.25 H 5259076398) CALCIUM (test code = 8.4 mg/dL 8.6-10.6 L 3650997721) eGFR Calculation mL/min/1.73m2 (Non-) (test code = 5252841445) eGFR Calculation mL/min/1.73m2 () (test code = 4216675605) JALEEL (test code = JALEEL) Association of [...] tests). Lab Interpretation Abnormal (test code = 10150-2) [facility] CenterPROTHROMBIN [facility] / [id number] 11:32:00 Test Item Value Reference Range Interpretation Comments PROTIME PATIENT (test See_Comment [Auto mated message] code = 5964-2) The system [employer] generated this result transmitted ref erence range: 10.1 - 1 2.6 Seconds. The re ference range was not u sed to interpret this result as normal/abnor mal. INR (test code = 6301-6) Nor mal INR <1.1; Warfarin Therap eutic range 2.0 to 3. 0 or 2.5 to 3.5, dep ending upon the indica tions. Lab Interpretation (test Normal code = 92134-6) [facility] WITH [id number] 11:24:00 Test Item Value Reference Range Interpretation [...] RDW-SD (test code = 48.9 fL 38.5-51.6 75675-7) RDW-CV (test code = 15.6 % 12.1-15.4 H 788-0) PLT (test code = See_Comment [Automated 777-3) message] The sy stem which generated this result transmitted reference range : 150 - 328 10*3/ ?L. The reference r yared was not used to interpret this result as normal/abnormal . MPV (test code = 8.8 fL 9.8-13 L 75117-5) NRBC/100 WBC (test See_Comment [Automat ed code = 5290663385) message] The system which generated this result transmitted reference range : 0.0 - 10.0 /100 WBCs. The refer ence range was not u sed to interpret th is result as normal/abnormal . NRBC x10^3 (test code <0.01 See_Comment [Auto mated = 9092760763) message] The s ystem which generated this result transmitted reference range : 10*3/?L. The reference range was not used to interpret this result as normal/abnormal . GRAN MAT (NEUT) % 74.1 % (test code = 770-8) IMM GRAN % (test code 1.20 % = 1382169847) LYMPH % (test code = 10.2 % 736-9) MONO % (test code = 9.1 % 5905-5) EOS % (test code = 4.8 % 713-8) BASO % (test code = 0.6 % 706-2) GRAN MAT x10^3(ANC) 5.37 10*3/uL 1.99-6.95 (test code = 1817961114) IMM GRAN x10^3 (test 0.09 10*3/uL 0-0.06 H code = 5274924467) LYMPH x10^3 (test code 0.74 10*3/uL 1.09-3.23 L = 731-0) MONO x10^3 (test code 0.66 10*3/uL 0.36-1.02 = 742-7) EOS x10^3 (test code = 0.35 10*3/uL 0.06-0.53 711-2) BASO x10^3 (test code 0.04 10*3/uL 0.01-0.09 = 704-7) Lab Interpretation Abnormal (test code = 41138-3) [facility] CenterPROFILE / [id number] 22:08:00 Test Item Value Reference Range Interpretation Comments WBC (test code = 6690-2) See_Comment [A utomated message] The system [employer] generated this result transmit emerson reference range : 4.20 - 10.70 10*3/?L. The reference range was not used to interpret this result as normal/abnormal . RBC (test code = 789-8) See_Comment L [Au tomated message] The system [employer] generated this result transmit emerson reference range [...] 777-3) See_Comment [Au tomated message] The system [facility] generated this result transmit emerson reference range : 150 - 328 10*3/?L. The reference range was not used to interpret this result as normal/abnormal . MPV (test code = 8.8 fL 9.8-13 L 11672-9) RDW-CV (test code = 16.0 % 12.1-15.4 H 788-0) RDW-SD (test code = 51.2 fL 38.5-51.6 11089-9) NRBC x10^3 (test code = <0.01 See_Comment [Au tomated message] 7054856976) The system [facility] generated this result transmit emerson reference range : 10*3/?L. The reference range was not used to interpret this result as normal/abnormal . NRBC/100 WBC (test code See_Comment [Au tomated message] = 8188187532) The system [facility] generated this result transmit emerson reference range : 0.0 - 10.0 /100 WBC s. The reference r yared was not used to interpret this result as normal/abnormal . IPF % (test code = 5551346299) Lab Interpretation (test Abnormal code = 74011-7) [facility] CenterPROTHROMBIN TIME / [id number] 20:24:00 Test Item Value Reference Range Interpretation Comments PROTIME PATIENT (test See_Comment [Auto mated message] code = 5964-2) The [facility] generated this result transmitted ref erence range: 10.1 - 1 2.6 Seconds. The re ference range was not u sed to interpret this result as normal/abnor mal. INR (test code = 6301-6) Nor mal INR <1.1; Warfarin Therap eutic range 2.0 to 3. 0 or 2.5 to 3.5, dep ending upon the indica tions. Lab Interpretation (test Normal code = 10873-1) [facility] CenterCT THORAX WO [id number] 14:16:52 Extensive multivessel coronary artery disease. Calcified [...] reviewed this study and agree with the abovereport.[facility] (NA, K, CL, CO2, GLUCOSE, BUN, CREATININE, CA)2020-03-26 11:32:00 Test Item Value Reference Range Interpretation Comments NA (test code = 127 mmol/L 135-145 L 3772192728) K (test code = 4.4 mmol/L 3.5-5 2833528626) CL (test code = 91 mmol/L 98-108 L 1295503381) CO2 TOTAL (test code = 29 mmol/L 23-31 3280094519) AGAP (test code = 2-16 0676698270) BUN (test code = 61 mg/dL 7-23 H 8234810490) GLUCOSE (test code = 97 mg/dL 70-110 5951826935) CREATININE (test code = 12.15 mg/dL 0.6-1.25 H 3279218990) CALCIUM (test code = 8.5 mg/dL 8.6-10.6 L 3985077530) eGFR Calculation mL/min/1.73m2 (Non-) (test code = 6201425594) eGFR Calculation mL/min/1.73m2 () (test code = 6762582796) JALEEL (test code = JALEEL) Association of [...] tests). Lab Interpretation Abnormal (test code = 53814-7) [facility] CenterMAGN[facility]UM2020-06-18 11:32:00 Test Item Value Reference Range Interpretation Comments MAGNESIUM (test code = 6135340857) 3.0 mg/dL 1.7-2.4 H Lab Interpretation (test code = Abnormal 56247-4) [facility] CenterCBC WITH [id number] 11:10:00 Test Item Value Reference Range Interpretation [...] RDW-SD (test code = 51.5 fL 38.5-51.6 20890-3) RDW-CV (test code = 16.3 % 12.1-15.4 H 788-0) PLT (test code = See_Comment [Automated 777-3) message] The sy stem which generated this result transmitted reference range : 150 - 328 10*3/ ?L. The reference r yared was not used to interpret this result as normal/abnormal . MPV (test code = 8.8 fL 9.8-13 L 62712-0) NRBC/100 WBC (test See_Comment [Automat ed code = 2099922334) message] The system which generated this result transmitted reference range : 0.0 - 10.0 /100 WBCs. The refer ence range was not u sed to interpret th is result as normal/abnormal . NRBC x10^3 (test code <0.01 See_Comment [Auto mated = 8512423823) message] The s ystem which generated this result transmitted reference range : 10*3/?L. The reference range was not used to interpret this result as normal/abnormal . GRAN MAT (NEUT) % 75.0 % (test code = 770-8) IMM GRAN % (test code 1.20 % = 4530774183) LYMPH % (test code = 11.3 % 736-9) MONO % (test code = 8.6 % 5905-5) EOS % (test code = 3.5 % 713-8) BASO % (test code = 0.4 % 706-2) GRAN MAT x10^3(ANC) 5.77 10*3/uL 1.99-6.95 (test code = 6876561172) IMM GRAN x10^3 (test 0.09 10*3/uL 0-0.06 H code = 2163472455) LYMPH x10^3 (test code 0.87 10*3/uL 1.09-3.23 L = 731-0) MONO x10^3 (test code 0.66 10*3/uL 0.36-1.02 = 742-7) EOS x10^3 (test code = 0.27 10*3/uL 0.06-0.53 711-2) BASO x10^3 (test code 0.03 10*3/uL 0.01-0.09 = 704-7) Lab Interpretation Abnormal (test code = 03341-0) [facility] CenterHEMOCHROMATOSIS(HFE)3 [id number] 19:53:00 Test Item Value Reference Range Interpretation Comments HFE - 3 Mutations Negative Negative (test code = 1120443194) JALEEL (test code = Hemochromatosis (HFE) 3 [...] and its performance characteristics were determined by [facility] Pathology [facility]. It has not [...] has been reviewed and approved by Abelardo Winters MD, PhD, [facility] HospitalCARCINOEMBRYONIC [id number] 17:24:00 Test Item Value Reference Range Interpretation Comments CEA (test code = 5.6 ng/mL 0-10 7095645358) JALEEL (test code = JALEEL) CEA Ranges: Non-Smokers ?0-5.0 ng/mLSmokers ? ? ?0-10.0 ng/mL Lab Interpretation (test Normal code = 40448-6) [facility] CenterCANCER ANTIGEN-GI (CA 19-9)2020-03-25 17:24:00 Test Item Value Reference Range Interpretation Comments CA 19-9 (test code = 8.5 U/mL 0-35 6814801050) JALEEL (test code = JALEEL) Biotin has been reported to cause a negative bias, interpret results relative to patient's use of biotin. Lab Interpretation (test Normal code = 50470-9) [facility] CenterALPHA [id number] 17:23:00 Test Item Value Reference Range Interpretation Comments AFP (test code = 1.0 ng/mL See_Comment [Automated 3550176004) message] The system which generated this result transmitted reference range : <=7.5. The reference range was not used to interpret this result as normal/abnormal . JALEEL (test code = JALEEL) Biotin has been reported to cause a negative bias, interpret results relative to patient's use of biotin. Lab Interpretation Normal (test code = 47275-0) [facility] CenterAMYLASE2020-06-17 16:45:00 Test Item Value Reference Range Interpretation Comments KAREN (test code = 1088891590) 75 U/L 35-110 Lab Interpretation (test code = Normal 07247-9) [facility] CenterLIPASE2020-06-17 16:45:00 Test Item Value Reference Range Interpretation Comments LIPASE (test code = 6573247852) 14 U/L 0-220 Lab Interpretation (test code = Normal 32863-6) [facility] CenterSUR[facility]ICAL PATHOLOGY [id number] 16:28:00 Test Item Value Reference Range Interpretation Comments Case Report (test code Surgical Pathology ? ? = 7083040389) ?Case: [id number] ? Authorizing Provider: ?Beatriz Atkinson MD ?Collected: ? 03/24/2020 1528 ?Ordering Location: ? ? GI Endoscopy OR Department Received: ?03/24/2020 1614 ?Pathologist: ? Lizet Mesa MD PHD ?Specimen: ? ?STOMACH, Gastric BX's ?to evaluate for H pylori ? Final Diagnosis (test a0adjSXuBJYsc2qzGHQxqA code = 9551017490) FuZzEwMzNcZnRuYmpcdWMx LZsqssOlPSfaz7TmJ8PdNd AwMFxhbnNpXGRlZmxhbmcx NCUjAKZ1vvHjRYWvFQodPE VtWHfwAv8isLHmaJlbIaLn NTOpw8xufoCVrtcerZc7b7 yzPIZiTuJ8mZAmTXtyX3zn wtWgePMgZQQgITp5wO21NO SusX6bqPKnCLnsusBrRUcy obNqbuVcMij1XSRaY2pbSB NuOSWsC6WpXX8vTSMyZgu1 OVC8ALQ0yRqty1B8yDUaiC KevRfpIwEkStPbJDJXo1Jd LUe2sAlxK0DrDWNjFpK5sB QgUGFyYWdyYXBoIEZvbnQ7 nE56OSfxehS4rIFfh7Zgd9 9bw807lI0mjRDhMTF6KTZq BRTdsNKjRIIdWPS3PINvaY JtP5zjAAomUI5mnznbUFT7 MFxtYXJndDcyMFxtYXJnYj EdmIVzXYTryWmaOKgwn174 SGT7SgRxHQ1qS3Agu3O2hC 9maXRcZGVmdGFiNzIwXGZv xu2xpAGxUOndx7WqSJR9mf M4eYSkaZCcEIDlIR15Deug w6RpCmlnMXZ7TANvudIkp7 Pzm7znHwXnbfNvT0lcX5Qa ZHJoZWFkXHBnYnJkcmZvb3 Mcu4NtyRXaoUf4g6mkRRRj LYEetQaru9bdWKZ4UIHmK0 V2ySCnn1zoITtcOBXyoIS8 pqMjWOQhgDSoM9ZrmE9sYY sbFR9ibpc8v8kpJsXjMT8q keblm0hjNJriOYZbQJF7Yw AlFBDri0YbzfqvUxDnm7Wa iFOhSQujQ82fd754SZSlok FiL5hugNBcxmrzxAClkixw MFxmczIwXHFsXHBsYWluXG UpQGZcSiNvxInokY8gRjZl ZnMyMFxwYXJccGFyZFxwbG FpblxmMFxmczIwXHBsYWlu XGYwXGZzMjBccGFyIEEuIF BAN11MC6ziMYFHN3BBJSob cGFyXGZpMjcwXHFsXHBsYW qlBKDqZASkXcJwwXrszW1m QzGzCxLnCKFhWGvOK8PQCY JfOBVLM5MMXXzQZSetAo2k MNHRTA7CD9sER9CPHNXNRA 4XTSpmWLHfPZASRsXSO8RY TxpDZWFZYfAXGgQDX1JLAz BCYZ6CGQTUMEXMISYbCINL TlRJRklFRFxwYXIgLSBOTy EVIyBTZO1ZDS2BCYaPDO5Y U8SKCDFGAbLQPSLCZRyXIW KASKDdxeexrBObaQjlyC5j ZjBcZnMyMFxwbGFpblxmMF xmczIwXHBhclxwbGFpblxm MVxmczIyXGxhbmcxMDMzXG qiU5edMpIlLPTmuAreSGhq x4KpINGzRGWcAZlswzUyVD 97TnBoYBIzPE0fee96NDNc lnaySHHSGuNiEb7tLl2gAQ IbSLUrMXa5QyAOFXhllBYn dwsiXBergnSbVGBxqx11WB T1JnFiv5X6KXGyIlAjUCRd JD0vjZzqJOVcDN6dZHQpB2 kjrH9hjce6CgNnMWJaUfK9 RJFuddA5Huq7TWUiRLgkw8 ezo1SvI3QtcHOfoOw2s7ga MPXrMtQ8xDZcLFwwO1wdus EhyKBmNPWdUZz9sUcjNoVd JGIwz1cmozWsUkPhWPLdYJ MkODTqgAfaasg2iW37VLMz aK2apEYpLGppltRsSaJ2SX uqABLuHmW0HRTooFLsYEEl A1wuJEXgBQhqXIKzGBmtyR ZaYJZ4lHxdd5E7uGBvlURr mAubJpWyHbPeBGILh8TcGG u4cSjsS0TuCGEsXnR5pIRb DKBbTEfmTVJqUBJvtnX6gB 28RTfqdtY9uPCea8Fpy46p l670yG0lpJGaZKR4PCAtTU YwbABdLHDhXCZ7EMKruXDg F9anZOYnML2evvshMHffQU rrMWTqlFX8UJFhhZNlB4Qm ZDTdTZmlSDKsazm0QdYoMl 5fqAPnhPxsHLrdg6jav2ba yPLoLjc8GSFyOnWjLlloPX pwt3Ips7khMNYehv3cKYZ8 kLDctEfzl0B8oVIuOODapK UntmUfPENbDyD4NBnwKW5y gw63PARsQPM2av6ukDIdtP zmluPihDBzIVbuC3QyUDNj k315CCHwV4LaJRRzg6E2uq UnWbDvNICtbTH0fpY2ITKp LBx5pYHzmkT1bxFjwRHoS9 sqjO1uEPUiAU8azvave5mp CWzpXMxmVEUvmOQ7nhT9DG OxwLXfE1FjnU7tBVWlTPme PHRzfjr4VjIvDc9dhKCpqR cyMFxzYmtwYWdlXHBnbmNv bnRccGduZGVjXHBsYWluXH BsYWluXGYwXGZzMjRccWxc bVjbcP7lDsKvIeXbNLtdYA 0pEUPaN6fiyVHrARMiCRQm T1ecSeEliY2bwNarWZrcMm JcZnMyMFxwYXIgSSBoYXZl AORhqaAabiJfsMwmanF9rQ E6RNBzVEzyRLAoKSQhqOXw ms9vcEyoNNUpZS6bBZRpru PkNEkxxGdeXHwlLYR6JEZl bWVudHMgbWFkZSBieSByZX VnOPTnfEZvRHAfpJedn2Be u0JqrBO5gH1ov5dmv1FzSD IbtVV3OO31jzZ6oX5gILFj EC3eUNDuAM2anZIbxSNvXU Zhn38clHnpkiApVKMcwsLc XHBsYWluXGYyXGZzMjhcbG FuZzEwMzNcaGljaFxmMlxk OqNeZNUqIHuzY4anJlYcOs BbOIxqIYF1wD== Clinical Information 59 y/o male with blood (test code = in vomit and stool1. [id number]) Gastric BX's ?to evaluate for H pylori Gross Description (test l1rbuIPvOWUxfFUgEkHyUX code = [id number]) IwHVBiw8mjACHluVVcNlOa MzNcZnRuYmpcdWMxXGRlZm Kmq5dzl446hYZlt5yjFWQk UoU8iYMpVVIlxAOuG290AL KiJTeyp6wkf1RkDZKjnNNu e4U1TSIAexkcvGq1yRhqR0 7xi0K6TcnxE2hbUITnWEbv SEQjIDrcgTKbBHB0EGSzOO D3RDdjxlTcrmR3IAjpnFDc EgM2WLy1y0znlTjyAPNcEU F9q6mzRGkliiCnSV5put3s oPu5p7ccnhWyHKCcRUUslQ UNCCJsU5TqmFgjHv1nsGd6 kOehWuqlYQE0Hqy9QY0nof 47xsv2hLexXYVzvbnlChA2 JClxYKNrpntfTQx5JZczWG XzjONdTYCjuMRqZ9QiSIxi XZ5vbfz9AhRmYO2vfaeeMX mtVZYrDZM3YpOnSLPbi9Qo yhisGwZzhy8tew19GGL1i5 FltVycEGO3UGI4FcVyHw5l aQVwUIVmEH0hWsEucYNmLL Dumb95oKicZKeslyEgsR9h XlJyRUIdpTFjEEQcTC7ouH DkRPOonI2ppbxqMIZtLtUh ijljSVJvzEkyxnHiDb9nkB ooMCR1ZNbfB8mxsV5nExW8 AUkaU5ojhO7lPRm3YWzrwA L2MJCzsN6rZS0agiswu6yh OIH5IQjuGGEvcuB3mhRuKV StxVFlP9ZaqP89WtBzoHEt I7IeaK7cPEbdXKSmizc5Wp RnUk4vjIJulQZ7XZtgFjyw YWdlXHBnbmNvbnRccGduZG VjXHBsYWluXHBsYWluXGYw KEDlHrSrr3DeKCYqk5ihSk Qyg5kluJy0DFcbdUpgzADp blxmMFxmczIwXHBsYWluXG RsRXXiZlFsG3GcP1qtTZ2h QSBpcyByZWNlaXZlZCBpbi Upx0TrZXcgzrCfJGShxOxd OHN4kVFyGLKsHTOqOSKaVM 50XHBsYWluXGYxXGZzMjBc xFemQYrmWZb5NakgaJGumt xmMVxmczIwIHMgbmFtZSwg FFlhzbMbPnPkIKGqvA1rKR YjUPSyRIK4vtcaZGUky6Rn zOM0npVkcwFxmGY3TVIzi8 HsUN3usMhiy0BqOZAuKEva XGYxXGZzMjBcdTgyMjEgXC i2MLhfvQXqlvouOXvnarRh QKAgdwIwL23rb5lzfIMlo8 DuIsW5SJ5umDbzkxLmokGu X1NxKGNws96mrET2jRBzyZ ZqTvXqM32nnqTnTXrmFyRr dIGfAsThcGIaSeAiU06hOG VtMdF5NQIoURU8NQZqBUNp xOAvvfUjYY92VRzsLO1oTZ noTT2fTIAdMU5zLQteAJXu ZWNpbWVuIGlzIGZpbHRlcm TfFIQhea55F4uxTWVvzL3k r3umFmIsOZEjQPCszABcdX X6LBDgpC5gqV26wdIhetER YJ1siXAoEPScjpHrjXpziC 5cZjBcZnMyMFxwbGFpblxm MVxmczIwIExhdXJlbiBWYW SaZEvjTKOkFPCLL9UqZTNh YWluXGYxXGZzMjBcbGFuZz EwMzNcaGljaFxmMVxkYmNo YHSvNBjrB8bgIrDpU2KiMP UgKeZnu0EcGMTsM14epZvp fG1mMgZlQcFaISpuBBT0 Embedded Images (test code = 9014828296) [facility] CenterPrepare Packed RBC (in units), 1 Units 2020-03-25 15:28:45 Test Item Value Reference Range Interpretation Comments Cross Match Result Compatible (test code = 4409) ISBT Blood Type Code (test code = 804315) Unit Blood Type (test O Pos code = 4410) Unit Number (test [id number] code = 4411) Blood Expiration Date & Time (test code = 976064) Status Information Issued (test code = 4412) Product Red Blood Cells Identification (test code = 4413) Product Code (test A3408E22 Performed at [facility] code = 4414) Laboratory Services - [facility] Blood [address] [place] [address]Tfsy Free: [phone] A No. [id number] [facility] 10:38:00 Test Item Value Reference Range Interpretation Comments PHOSPHORUS (test code = 4698461149) 7.8 mg/dL 2.5-5 H Lab Interpretation (test code = Abnormal 66925-2) [facility] (NA, K, CL, CO2, GLUCOSE, BUN, CREATININE, CA)2020-03-25 10:38:00 Test Item Value Reference Range Interpretation Comments NA (test code = 131 mmol/L 135-145 L 6572354308) K (test code = 4.0 mmol/L 3.5-5 5244256477) CL (test code = 99 mmol/L 98-108 4813263545) CO2 TOTAL (test code = 23 mmol/L 23-31 7240626028) AGAP (test code = 2-16 4074698711) BUN (test code = 60 mg/dL 7-23 H 1121778126) GLUCOSE (test code = 107 mg/dL 70-110 5507990646) CREATININE (test code = 10.64 mg/dL 0.6-1.25 H 6808705654) CALCIUM (test code = 7.6 mg/dL 8.6-10.6 L 8711515706) eGFR Calculation mL/min/1.73m2 (Non-) (test code = 6581120617) eGFR Calculation mL/min/1.73m2 () (test code = 9857195223) JALEEL (test code = JALEEL) Association of [...] tests). Lab Interpretation Abnormal (test code = 65432-4) [facility] CenterMAGNESIUM2020-06-17 10:38:00 Test Item Value Reference Range Interpretation Comments MAGNESIUM (test code = 7276330734) 2.9 mg/dL 1.7-2.4 H Lab Interpretation (test code = Abnormal 84914-4) [facility] CenterPROFILE / [id number] 10:27:00 Test Item Value Reference Range Interpretation Comments WBC (test code = 6690-2) See_Comment H [A utomated message] The system [employer] generated this result transmit emerson reference range : 4.20 - 10.70 10*3/?L. The reference range was not used to interpret this result as normal/abnormal . RBC (test code = 789-8) See_Comment L [Au tomated message] The system [employer] generated this result transmit emerson reference range [...] 777-3) See_Comment [Au tomated message] The system [employer] generated this result transmit emerson reference range : 150 - 328 10*3/?L. The reference range was not used to interpret this result as normal/abnormal . MPV (test code = 8.9 fL 9.8-13 L 67964-3) RDW-CV (test code = 16.3 % 12.1-15.4 H 788-0) RDW-SD (test code = 50.4 fL 38.5-51.6 46759-4) NRBC x10^3 (test code = <0.01 See_Comment [Au tomated message] 7371451286) The system [facility] generated this result transmit emerson reference range : 10*3/?L. The reference range was not used to interpret this result as normal/abnormal . NRBC/100 WBC (test code See_Comment [Au tomated message] = 0627029161) The system [facility] generated this result transmit emerson reference range : 0.0 - 10.0 /100 WBC s. The reference r yared was not used to interpret this result as normal/abnormal . IPF % (test code = 7551977446) Lab Interpretation (test Abnormal code = 64558-8) [facility] CenterPROFILE / [id number] 03:49:00 Test Item Value Reference Range Interpretation Comments WBC (test code = 6690-2) See_Comment H [A utomated message] The system [facility] generated this result transmit emerson reference range : 4.20 - 10.70 10*3/?L. The reference range was not used to interpret this result as normal/abnormal . RBC (test code = 789-8) See_Comment L [Au tomated message] The system [facility] generated this result transmit emerson [...] 777-3) See_Comment [Au tomated message] The system [facility] generated this result transmit emerson reference range : 150 - 328 10*3/?L. The reference range was not used to interpret this result as normal/abnormal . MPV (test code = 8.9 fL 9.8-13 L 52438-8) RDW-CV (test code = 16.4 % 12.1-15.4 H 788-0) RDW-SD (test code = 50.1 fL 38.5-51.6 95942-9) NRBC x10^3 (test code = <0.01 See_Comment [Au tomated message] 1246366500) The system [facility] generated this result transmit emerson reference range : 10*3/?L. The reference range was not used to interpret this result as normal/abnormal . NRBC/100 WBC (test code See_Comment [Au tomated message] = 8346381844) The system [facility] generated this result transmit emerson reference range : 0.0 - 10.0 /100 WBC s. The reference r yared was not used to interpret this result as normal/abnormal . IPF % (test code = 3500456846) Lab Interpretation (test Abnormal code = 13891-4) [facility] CenterPOCT GLUCOSE (AUTOMATED)2020-03-24 22:11:00 Test Item Value Reference Range Interpretation Comments POCT GLU (test code = 0293068225) 149 mg/dL 70-110 H Lab Interpretation (test code = Abnormal 09641-1) [facility] CenterPROFILE / [id number] 19:16:00 Test Item Value Reference Range Interpretation Comments WBC (test code = 6690-2) See_Comment H [A utomated message] The system [facility] generated this result transmit emerson reference range : 4.20 - 10.70 10*3/?L. The reference range was not used to interpret this result as normal/abnormal . RBC (test code = 789-8) See_Comment L [Au tomated message] The system [facility] generated this result transmit emerson [...] 777-3) See_Comment [Au tomated message] The system [employer] generated this result transmit emerson reference range : 150 - 328 10*3/?L. The reference range was not used to interpret this result as normal/abnormal . MPV (test code = 8.9 fL 9.8-13 L 85954-0) RDW-CV (test code = 15.9 % 12.1-15.4 H 788-0) RDW-SD (test code = 48.3 fL 38.5-51.6 90738-6) NRBC x10^3 (test code = <0.01 See_Comment [Au tomated message] 9628651996) The system [employer] generated this result transmit emerson reference range : 10*3/?L. The reference range was not used to interpret this result as normal/abnormal . NRBC/100 WBC (test code See_Comment [Au tomated message] = 3428235441) The system [employer] generated this result transmit emerson reference range : 0.0 - 10.0 /100 WBC s. The reference r yared was not used to interpret this result as normal/abnormal . IPF % (test code = 6734917621) Lab Interpretation (test Abnormal code = 08276-4) [facility] CenterPOHI GLUCOSE (AUTOMATED)2020-03-24 17:35:00 Test Item Value Reference Range Interpretation Comments POCT GLU (test code = 0143986320) 76 mg/dL 70-110 Lab Interpretation (test code = Normal 56670-0) [facility] ANGIOGRAM ABDOMEN/[id number] 16:43:35 1. No active GI bleeding is [...] or ductal dilatation. No adrenal nodules. Both koi kidneys are atrophic. No renal stones, masses, [...] arthropathy changes noted in the lumbar spine. [facility], Radiant Results Inft User - 03/24/2020 [...] mass or ductal dilat ation.No adrenal nodules.Both koi kidneys are atrophic. No renal stones, masses, [...] artery, unchanged6. Bilateral atrophic kidneysRESIDENT RADIOLOGIST:[facility]. Olsen [facility]:Dr. Mark Wren I, Mark Wren MD., have reviewed this study and agree with the abovereport.[facility] CenterXR CHEST 1 [id number] 16:36:59EXAM: XR CHEST 1 VW HISTORY: cough [...] but thelungs are satisfactorily expanded and clear otherwise.[facility] CenterTRANSFERRIN2020-06-16 16:16:00 Test Item Value Reference Range Interpretation Comments TRANSFERRN (test code = 3366783662) 152 mg/dL 168-336 L Lab Interpretation (test code = Abnormal 76762-7) [facility] CenterCOVID-19 (ID NOW RAPID TESTING)2020-03-24 16:08:00 Test Item Value Reference Range Interpretation Comments SARS-CoV-2 Rapid ID NOW Not Detected Not Detected (test code = 23363-6) JALEEL (test code = JALEEL) ID NOW COVID-19 Assay is an isothermal nucleic acid amplification test intended for the qualitative detection of nucleic acid from SARS-CoV-2 viral RNA in nasopharyngeal (SUBSTATION INSPECTOR) specimens. It is used under Emergency Use [...] indicated. Lab Interpretation Normal (test code = 74457-4) [facility] CenterBODY FLUID DIRECT [id number] 15:54:00 Test Item Value Reference Range Interpretation Comments BF COLOR Bloody (test code = 3766941054) BF WBC Count See_Comment [Automated (test code = message] The sy stem 3693401203) which generated this result transmitted reference range : /?L. The refere nce range was not u sed to interpret th is result as normal/abnormal . BF RBC Count See_Comment [Automated (test code = message] The sy stem 6672705883) which generated this result transmitted reference range : /?L. The refere nce range was not u sed to interpret th is result as normal/abnormal . JALEEL (test The reference range code = JALEEL) and other method performance specifications have not been established for this body fluid. ?The test results must be integrated into the clinical context for interpretation. [facility] CenterBODY FLUID MANUAL [id number] 15:54:00 Test Item Value Reference Range Interpretation Comments BF SEGS (test code = 1300789442) 34 % BF LYMPHS (test code = 8188973443) 23 % MACROPHAGE (test code = 8727720066) 40 % MESOS (test code = 4855800635) 1 % BF EOS (test code = 5517141032) 1 % BF BASO (test code = 7121634633) 1 % #CELS CNTD (test code = 2570341153) [facility] CenterCT ABDOMEN PELVIS WO [id number] 15:11:23 Overall agree with outside hospital report [...] and pelvis without contrast was performed [facility] on 03/23/2020. Images were labeled with patient's name andsubmitted to [facility] for reinterpretation. FINDINGS: LOWER THORAX: For detailed [...] adrenal nodule. KIDNEYS: Bilateral atrophy of the koi kidneys. A 1.6 cm simple cyst isnoted [...] lytic or sclerotic bony lesions. Noacute fracture. [facility], Radiant Results Inft User - 03/24/2020 10:12 AM CDTEXAM: OUTSIDE STUDY REINTERPRETATION OF A CT ABDOMEN AND PELVIS WITHOUTCONTRASTHISTORY: 59-year-old with "abdominal pain, acute, generalized".COMPARISON: CT abdomen and pelvis with and without contrast 07/10/2019.TECHNIQUE: CT of the abdomen and pelvis without contrast was performed [facility] on 03/23/2020. Images were labeled with patient's name andsubmitted to [facility] for reinterpretation. FINDINGS:LOWER THORAX: For detailed report [...] adrenal nodule. KIDNEYS: Bilateral atrophy of the koi kidneys. A 1.6 cm simple cyst isnoted [...] reviewed this study and agree withthe above report.[facility] CenterMAGNESIUM2020-06-16 14:42:00 Test Item Value Reference Range Interpretation Comments MAGNESIUM (test code = 0500705815) 3.3 mg/dL 1.7-2.4 H Lab Interpretation (test code = Abnormal 26931-4) [facility] CenterPHOSPHORUS2020-06-16 14:42:00 Test Item Value Reference Range Interpretation Comments PHOSPHORUS (test code = 6844740443) 9.1 mg/dL 2.5-5 H Lab Interpretation (test code = Abnormal 24197-0) [facility] CenterCOMP. METABOLIC PANEL (94335)2020-03-24 14:42:00 Test Item Value Reference Range Interpretation Comments NA (test code = 128 mmol/L 135-145 L 4437033620) K (test code = 5.0 mmol/L 3.5-5 6036804183) CL (test code = 91 mmol/L 98-108 L 7398941708) CO2 TOTAL (test code = 26 mmol/L 23-31 1537293878) AGAP (test code = 2-16 8365407033) BUN (test code = 74 mg/dL 7-23 H 1062980241) GLUCOSE (test code = 78 mg/dL 70-110 3332096917) CREATININE (test code = 12.95 mg/dL 0.6-1.25 H 9155526829) TOTAL BILI (test code = 0.4 mg/dL 0.1-1.9 7165939009) CALCIUM (test code = 8.8 mg/dL 8.6-10.6 2196402095) T PROTEIN (test code = 5.4 g/dL 6.3-8.2 L 3342295882) ALBUMIN (test code = 2.9 g/dL 3.5-5 L 3130403069) ALK PHOS (test code = 85 U/L 34-122 1276423121) ALTv (test code = 22 U/L 5-50 1742-6) AST(SGOT) (test code = 31 U/L 13-40 6982178913) eGFR Calculation mL/min/1.73m2 (Non-) (test code = 3283523167) eGFR Calculation mL/min/1.73m2 () (test code = 7324577555) JALEEL (test code = JALEEL) Association of [...] tests). Lab Interpretation Abnormal (test code = 82738-6) [facility] CenterPROFILE / [id number] 12:54:00 Test Item Value Reference Range Interpretation Comments WBC (test code = 6690-2) See_Comment H [A utomated message] The system [employer] generated this result transmit emerson reference range : 4.20 - 10.70 10*3/?L. The reference range was not used to interpret this result as normal/abnormal . RBC (test code = 789-8) See_Comment L [Au tomated message] The system [employer] generated this result transmit emerson reference range [...] 777-3) See_Comment [Au tomated message] The system [employer] generated this result transmit emerson reference range : 150 - 328 10*3/?L. The reference range was not used to interpret this result as normal/abnormal . MPV (test code = 8.7 fL 9.8-13 L 10683-6) RDW-CV (test code = 15.9 % 12.1-15.4 H 788-0) RDW-SD (test code = 47.6 fL 38.5-51.6 79488-6) NRBC x10^3 (test code = <0.01 See_Comment [Au tomated message] 6663426806) The system [employer] generated this result transmit emerson reference range : 10*3/?L. The reference range was not used to interpret this result as normal/abnormal . NRBC/100 WBC (test code See_Comment [Au tomated message] = 0302786570) The system [facility] generated this result transmit emerson reference range : 0.0 - 10.0 /100 WBC s. The reference r yared was not used to interpret this result as normal/abnormal . IPF % (test code = 9329629809) Lab Interpretation (test Abnormal code = 19285-4) [facility] CenterPROFILE / [id number] 07:35:00 Test Item Value Reference Range Interpretation Comments WBC (test code = 6690-2) See_Comment [A utomated message] The system [facility] generated this result transmit emerson reference range : 4.20 - 10.70 10*3/?L. The reference range was not used to interpret this result as normal/abnormal . RBC (test code = 789-8) See_Comment L [Au tomated message] The system [facility] generated this result transmit emerson [...] 777-3) See_Comment [Au tomated message] The system [facility] generated this result transmit emerson reference range : 150 - 328 10*3/?L. The reference range was not used to interpret this result as normal/abnormal . MPV (test code = 9.3 fL 9.8-13 L 74572-0) RDW-CV (test code = 15.7 % 12.1-15.4 H 788-0) RDW-SD (test code = 47.0 fL 38.5-51.6 81440-4) NRBC x10^3 (test code = <0.01 See_Comment [Au tomated message] 8796401308) The system [employer] generated this result transmit emerson reference range : 10*3/?L. The reference range was not used to interpret this result as normal/abnormal . NRBC/100 WBC (test code See_Comment [Au tomated message] = 7210774626) The system [employer] generated this result transmit emerson reference range : 0.0 - 10.0 /100 WBC s. The reference r yared was not used to interpret this result as normal/abnormal . IPF % (test code = 4755310692) Lab Interpretation (test Abnormal code = 96026-8) [facility] CenterFERRITIN [id number] 02:29:00 Test Item Value Reference Range Interpretation Comments FERRITIN (test code = 863.0 ng/mL 18-464 H 8293120823) JALEEL (test code = JALEEL) Biotin has been reported to cause a negative bias, interpret results relative to patient's use of biotin. Lab Interpretation (test Abnormal code = 87127-7) [facility] CenterTOTAL IRON BINDING [id number] 02:00:00 Test Item Value Reference Range Interpretation Comments TIBC (test code = 1440646068) 228 ug/dL 250-410 L % FE SAT (test code = 2886709284) 23 % 20-50 Lab Interpretation (test code = Abnormal 34000-5) [facility] CenterIRON2020-06-16 01:49:00 Test Item Value Reference Range Interpretation Comments IRON (test code = 6784773769) 52 ug/dL 50-160 Lab Interpretation (test code = Normal 21633-9) [facility] CenterPROFILE / [id number] 01:26:00 Test Item Value Reference Range Interpretation Comments WBC (test code = 6690-2) See_Comment H [A utomated message] The system [employer] generated this result transmit emerson reference range : 4.20 - 10.70 10*3/?L. The reference range was not used to interpret this result as normal/abnormal . RBC (test code = 789-8) See_Comment L [Au tomated message] The system [employer] generated this result transmit emerson reference range [...] 777-3) See_Comment [Au tomated message] The system [facility] [employer] generated this result transmit emerson reference range : 150 - 328 10*3/?L. The reference range was not used to interpret this result as normal/abnormal . MPV (test code = 8.9 fL 9.8-13 L 41254-4) RDW-CV (test code = 15.0 % 12.1-15.4 788-0) RDW-SD (test code = 46.5 fL 38.5-51.6 32968-1) NRBC x10^3 (test code = <0.01 See_Comment [Au tomated message] 2170155953) The system [employer] generated this result transmit emerson reference range : 10*3/?L. The reference range was not used to interpret this result as normal/abnormal . NRBC/100 WBC (test code See_Comment [Au tomated message] = 2583813529) The system [facility] generated this result transmit emerson reference range : 0.0 - 10.0 /100 WBC s. The reference r yared was not used to interpret this result as normal/abnormal . IPF % (test code = 8710765391) Lab Interpretation (test Abnormal code = 64331-3) [facility] CenterBODY FLUID DIRECT [id number] 21:58:00 Test Item Value Reference Range Interpretation Comments BF COLOR Grossly Bloody (test code = 4539781719) BF WBC Count See_Comment [Automated (test code = message] The sy stem 6510383081) which generated this result transmitted reference range : /?L. The refere nce range was not u sed to interpret th is result as normal/abnormal . BF RBC Count See_Comment [Automated (test code = message] The sy stem 9452709241) which generated this result transmitted reference range : /?L. The refere nce range was not u sed to interpret th is result as normal/abnormal . JALEEL (test The reference range code = JALEEL) and other method performance specifications have not been established for this body fluid. ?The test results must be integrated into the clinical context for interpretation. [facility] CenterBODY FLUID MANUAL [id number] 21:58:00 Test Item Value Reference Range Interpretation Comments BF SEGS (test code = 29 % 3298000261) BF LYMPHS (test code = 54 % 1669399789) BF REACTIVE LYMPHS % 1 % (test code = 0474002251) MACROPHAGE (test code = 15 % Leuk ophages observed. 3696716653) MESOS (test code = 1 % Reactive Mesothelial 0441106354) observed. #CELS CNTD (test code = 7740110800) [facility] CenterPrepare Packed RBC (in units), 1 Units 2020-03-23 21:26:21 Test Item Value Reference Range Interpretation Comments Cross Match Result Compatible (test code = 4409) ISBT Blood Type Code (test code = 112842) Unit Blood Type (test O Pos code = 4410) Unit Number (test [id number] code = 4411) Blood Expiration Date & Time (test code = 279883) Status Information Issued (test code = 4412) Product Red Blood Cells Identification (test code = 4413) Product Code (test T0665E74 Performed at [facility] code = 4414) Laboratory Services - [facility] Blood Rrld659 [facility] s [address]Dyqj Free: [phone] A No. [id number] [facility] CenterType and Screen - ONCE [id number] 20:49:43 Test Item Value Reference Range Interpretation Comments ABO & RH (test code O POSITIVE Performe d at [facility] = 20) Laboratory Serv [facility] [address] [facility] s [address]Mbxq Free: [phone] A No. [id number] IAT (test code = Negative Performed a t [facility] 1185) Laboratory Serv [facility] [place], [place] [address]Tai zavala [address]Aelk Free: [phone] A No. [id number] [facility] WITH [id number] 20:47:00 Test Item Value Reference Range Interpretation [...] RDW-SD (test code = 46.4 fL 38.5-51.6 96112-1) RDW-CV (test code = 14.9 % 12.1-15.4 788-0) PLT (test code = See_Comment [Automated 777-3) message] The sy stem which generated this result transmitted reference range : 150 - 328 10*3/ ?L. The reference r yared was not used to interpret this result as normal/abnormal . MPV (test code = 8.9 fL 9.8-13 L 29745-1) NRBC/100 WBC (test See_Comment [Automat ed code = 8092737904) message] The system which generated this result transmitted reference range : 0.0 - 10.0 /100 WBCs. The refer ence range was not u sed to interpret th is result as normal/abnormal . NRBC x10^3 (test code <0.01 See_Comment [Auto mated = 9645214774) message] The s ystem which generated this result transmitted reference range : 10*3/?L. The reference range was not used to interpret this result as normal/abnormal . GRAN MAT (NEUT) % 73.1 % (test code = 770-8) IMM GRAN % (test code 3.10 % = 5334516314) LYMPH % (test code = 13.0 % 736-9) MONO % (test code = 7.7 % 5905-5) EOS % (test code = 2.6 % 713-8) BASO % (test code = 0.5 % 706-2) GRAN MAT x10^3(ANC) 7.31 10*3/uL 1.99-6.95 H (test code = 0893754497) IMM GRAN x10^3 (test 0.31 10*3/uL 0-0.06 H code = 0833613165) LYMPH x10^3 (test code 1.30 10*3/uL 1.09-3.23 = 731-0) MONO x10^3 (test code 0.77 10*3/uL 0.36-1.02 = 742-7) EOS x10^3 (test code = 0.26 10*3/uL 0.06-0.53 711-2) BASO x10^3 (test code 0.05 10*3/uL 0.01-0.09 = 704-7) ELLIPTO/OVAL (test 2+ See_Comment A [Automat ed code = 83549-4) message] The system which generated this result transmitted reference range : (none). The reference range was not used to interpret this result as normal/abnormal . POLYCHROMASIA (test 2+ See_Comment [Automa emerson code = 62377-7) message] The system which generated this result [...] . Lab Interpretation Abnormal (test code = 26552-6) [facility] CenterCOMP. METABOLIC PANEL (34565)2020-03-23 20:04:00 Test Item Value Reference Range Interpretation Comments NA (test code = 127 mmol/L 135-145 L 6339434281) K (test code = 4.6 mmol/L 3.5-5 5354625426) CL (test code = 89 mmol/L 98-108 L 7958737109) CO2 TOTAL (test code = 22 mmol/L 23-31 L 2327404203) AGAP (test code = 2-16 8304424039) BUN (test code = 85 mg/dL 7-23 H 4030193548) GLUCOSE (test code = 83 mg/dL 70-110 6813563711) CREATININE (test code = 14.79 mg/dL 0.6-1.25 H 7015275686) TOTAL BILI (test code = 0.4 mg/dL 0.1-1.5 2797640622) CALCIUM (test code = 8.7 mg/dL 8.6-10.6 6051252130) T PROTEIN (test code = 5.4 g/dL 6.3-8.2 L 2414547587) ALBUMIN (test code = 2.9 g/dL 3.5-5 L 3219220692) ALK PHOS (test code = 97 U/L 34-122 7920594239) ALTv (test code = 36 U/L 5-50 1742-6) AST(SGOT) (test code = 43 U/L 13-40 H 7000358087) eGFR Calculation mL/min/1.73m2 (Non-) (test code = 2823259022) eGFR Calculation mL/min/1.73m2 () (test code = 4051380161) JALEEL (test code = JALEEL) Association of [...] tests). Lab Interpretation Abnormal (test code = 41670-2) [facility] CenterPROTHROMBIN TIME / [id number] 18:00:00 Test Item Value Reference Range Interpretation Comments PROTIME PATIENT (test See_Comment [Auto mated message] code = 5964-2) The system [employer] generated this result transmitted ref erence range: 10.1 - 1 2.6 Seconds. The re ference range was not u sed to interpret this result as normal/abnor mal. INR (test code = 6301-6) Nor mal INR <1.1; Warfarin Therap eutic range 2.0 to 3. 0 or 2.5 to 3.5, dep ending upon the indica tions. Lab Interpretation (test Normal code = 48973-2) [facility]:00 Test Item Value Reference Range Interpretation Comments Fibrinogen (test code = 0074581448) 458 mg/dL 167-453 H Lab Interpretation (test code = Abnormal 01767-2) [facility]:00 Test Item Value Reference Range Interpretation Comments APTT Patient (test code = See_Comment [ Automated message] 3173-2) The system EGT h generated this result transmitted ref erence range: 26 - 36 Seconds. The re ference range was not u sed to interpret this result as normal/abnor mal. Lab Interpretation (test Normal code = 78886-1) [facility] ZZXVTTX9183-38-40 06:28:00Negative (03/23/20 1:28 AM)[facility] IRVBDIF7614-80-62 06:28:00Negative (03/23/20 1:28 AM)[facility] HNGNVSF1665-99-42 06:28:00Negative (03/23/20 1:28 AM)[facility] NFGHVZF3621-01-73 06:23:00Product available 2(03/23/20 1:23 AM)[facility] ERGHYEK5815-41-64 06:23:00Product available 2(03/23/20 1:23 AM)[facility] RESULTS 2020-03-23 06:23:00Product available 2(03/23/20 1:23 AM)[facility] KGQHIO5431-80-54 06:08:35907596Kqksyfhx HermannB[facility] CJHHCL7786-42-70 06:08:00 1316[facility] EMVRID8414-89-16 06:08:0037[facility] FLUIDS 2020-03-23 06:08:004[facility] SWSLCJ2791-98-20 06:08:0054[facility] YULRFK0490-97-75 06:08:003[facility] ULPBMA7093-60-11 06:08:002[facility] YTYWRQ7739-51-43 06:08:00Bloody *ABN*(03/23/20 1:08 AM)[facility] CRILPT9197-78-46 06:08:00Red *ABN*(03/23/20 1:08 AM) [facility] KOPBTW6958-35-33 06:08:00Yellow *ABN*(03/23/20 1:08 AM) [facility] GJBJDH7531-86-25 06:08:00[place] (03/23/20 1:08 AM)[facility]annCHE[facility] NKDGU7426-49-20 06:08:0098[facility] TBHLG6685-51-24 06:08:0081[facility]CHE[facility] AZIHI0390-95-28 06:08:0014.40[facility]CHE[facility] XQIVE6347-91-79 06:08:66362Ibrfuodl HermannCHEM BFLTA1983-69-95 06:08:004.8 [facility]CHE[facility] XNVBJ6193-69-55 06:08:0090[facility]annCHE[facility] PANEL 2020-03-23 06:08:0027[facility] JPDRF2349-23-90 06:08:008.7[facility]CHE[facility] UXNMM8809-76-22 06:08:005.7[facility]annCHE[facility] NSQTN4173-78-33 06:08:002.5[facility]annCHE[facility] FOFKR5826-31-06 06:08:0032[facility]annCHE[facility] UTMCD2839-20-93 06:08:0036[facility]annCHE[facility] ZATGN8995-64-31 06:08:47313 [facility] OBGGP6680-10-93 06:08:000.5[facility]annCHEM PANEL 2020-03-23 06:08:0016.8[facility]annCHE[facility] CMCSG2948-51-08 06:08:00 Test Item Value Reference Range Interpretation Comments B/C Ratio (test code = B/C Ratio) 6 1 6-25 [facility] CFTMU9879-25-70 06:08:003.2[facility]annCHEM PANEL 2020-03-23 06:08:00 Test Item Value Reference Range Interpretation Comments A/G Ratio (test code = A/G Ratio) 0.8 1 0.7-1.6 [facility]CHE[facility] OULGT0787-75-03 06:08:003[facility]annCHE[facility] PANEL 2020-03-23 06:08:000.6[facility] EcwzvckLJRHIUTFSH7601-52-20 06:08:0011.5[facility] XmwfhefBWAGUJDLUW1397-80-45 06:08:002.12[facility] OwqhislFVPLKFWGRD2110-77-37 06:08:006.1[facility] LmgmdxaRMLHYGBQNG2429-90-43 06:08:0018.4[facility] JGSAVIWSOK1921-97-82 06:08:0086.5[facility] DecdadcEBXQQRFFEU5571-73-25 06:08:00 Test Item Value Reference Range Interpretation Comments MCH (test code = MCH) 28.6 pg 27.0-31.0 [facility] WeobpjfAPPCRPZRSX3766-41-25 06:08:0033.1[facility]annHEMATOLOGY 2020-03-23 06:08:0015.9[facility] NafxlaxNRXTPSYIDW1157-29-52 06:08:93832Vrklwjdl TzfshzfNCLITHESDZ9042-70-13 06:08:006.8[facility] ObfscgfSMZNMOHCEW3398-07-30 06:08:00 Test Item Value Reference Range Interpretation Comments PT (test code = PT) 13.9 s 12.0-14.7 [facility] HsouiruOSWBVRRLAP2412-37-91 06:08:00 Test Item Value Reference Range Interpretation Comments INR (test code = INR) 1.07 1 0.85-1.17 [facility] XlqcbwdYHKBHJRISD5987-02-27 06:08:00Normal (03/23/20 1:08 AM)[facility] SmxxavoVNEERERZTP4152-39-86 06:08:00Normal (03/23/20 1:08 AM)[facility] FQXFECDSMJ0652-30-23 06:08:0080.9[facility] YeeybkfTIKCYKBENS0856-17-44 06:08:00 9.1[facility] UimnxadMFQYYXYPCT1007-30-01 06:08:007.3[facility] HermannHEMATOLOGY 2020-03-23 06:08:002.0[facility] JvkamzfRNAMCUCKPZ6947-45-52 06:08:000.7[facility] LbqpdvuGDEAKKCBON3546-88-36 06:08:009.3[facility] SrxfutjAZHLCMUWHZ1047-26-66 06:08:001.0[facility] ZzvvattWRRRJCRMRA8405-30-25 06:08:000.8[facility] [place] WJZPTTEKJK0123-04-38 06:08:000.2[facility] XunhaknJZMLRSSSSC2783-84-47 06:08:000.1 [facility] UlpndtoSSONBFDJEL6584-83-92 06:08:002+ *ABN*(03/23/20 1:08 AM)[facility] MokbhzwMTUYSIXKKW1960 06:08:001+ *ABN*(03/23/20 1:08 AM)[facility] BNDAGVLLUW2507-82-63 06:08:001+ *ABN*(03/23/20 1:08 AM)[facility]annHEMATOLOGY 2020-03-23 06:08:00Rare *ABN*(03/23/20 1:08 AM)[facility]annB[facility] FLUIDS 2020-03-23 06:08:27091017Gvjprtlf HermannBODY BTEAIW7770-63-60 06:08:807630 [facility] VNWAXE7696-36-94 06:08:0037[facility] FLUIDS 2020-03-23 06:08:004[facility] QPNCWH7126-58-34 06:08:0054[facility] LQUWZW4454-00-92 06:08:003[facility] VDKRYU7554-06-06 06:08:002[facility] AUJOXA1437-53-66 06:08:00Bloody *ABN*(03/23/20 1:08 AM)[facility] ZCOQUP1267-17-61 06:08:00Red *ABN*(03/23/20 1:08 AM) [facility] TLDAKU5231-44-66 06:08:00Yellow *ABN*(03/23/20 1:08 AM) [facility] MPQNWC2753-64-17 06:08:00[place] (03/23/20 1:08 AM)[facility]annCHEM TJSNW2290-06-49 06:08:0098[facility]annCHEM TYEZX6499-76-41 06:08:0081[facility]annCHEM FEKER5820-64-80 06:08:0014.40[facility]annCHEM BFRKM7913-51-53 06:08:70529Ahldjekw HermannCHEM FOANB1339-10-51 06:08:004.8 [facility]annCHE[facility] YZDQR4046-23-04 06:08:0090[facility]annCHEM PANEL 2020-03-23 06:08:0027[facility]annCHEM DMRKR5741-25-73 06:08:008.7[facility]annCHEM SUQOU1600-44-23 06:08:005.7[facility]annCHEM IEEIJ4110-40-31 06:08:002.5[facility]annCHEM UDDWL4630-89-43 06:08:0032[facility]annCHEM ZABTJ6781-98-03 06:08:0036[facility]annCHEM ONXNG0115-25-00 06:08:94956 [facility]annCHE[facility] QOFBD9656-77-12 06:08:000.5[facility]annCHEM PANEL 2020-03-23 06:08:0016.8[facility]annCHEM QSGAM4193-75-83 06:08:00 Test Item Value Reference Range Interpretation Comments B/C Ratio (test code = B/C Ratio) 6 1 6-25 [facility]annCHE[facility] BBDMJ7560-28-13 06:08:003.2[facility]annCHEM PANEL 2020-03-23 06:08:00 Test Item Value Reference Range Interpretation Comments A/G Ratio (test code = A/G Ratio) 0.8 1 0.7-1.6 [facility]annCHE[facility] TGGZL0374-09-10 06:08:003[facility]annCHEM PANEL 2020-03-23 06:08:000.6[facility] UsmthdtRUUBTVWAGX6856-02-73 06:08:0011.5[facility] UbfjzziIHKRSBQBXW4705-45-67 06:08:002.12[facility] OifqmikYZWMGZQXTZ2398-58-76 06:08:006.1[facility] XfefkxhUKGJLBHIAL5153-48-95 06:08:0018.4[facility] [place] ASZJEIIVOT6556-87-93 06:08:0086.5[facility] BukcbauAXDFXYIKLX9902-21-97 06:08:00 Test Item Value Reference Range Interpretation Comments MCH (test code = MCH) 28.6 pg 27.0-31.0 [facility] LdnzgsaJCHNLLCBDI6186-16-41 06:08:0033.1[facility]annHEMATOLOGY 2020-03-23 06:08:0015.9[facility] PvdipxuKOXODZJIVY4518-00-76 06:08:43051Ftebliii XaesidnZABICANASR2693-58-07 06:08:006.8[facility] GeqdbwiDXEDDIBBHZ2249-67-82 06:08:00 Test Item Value Reference Range Interpretation Comments PT (test code = PT) 13.9 s 12.0-14.7 [facility] FbwankrZDDRQIQNEJ4137-30-30 06:08:00 Test Item Value Reference Range Interpretation Comments INR (test code = INR) 1.07 1 0.85-1.17 [facility] LvbsqauVYTIDZNLDS5147-29-58 06:08:00Normal (03/23/20 1:08 AM)[facility] KphyxlbGFHWQFFKWH2855-44-83 06:08:00Normal (03/23/20 1:08 AM)[facility] [place] PQDCRXIRNI3489-88-99 06:08:0080.9[facility] KproykxVHCFMSXOAI7372-03-23 06:08:00 9.1[facility] WoiaqkcOTYZMYEDPX5250-27-74 06:08:007.3[facility]annHEMATOLOGY 2020-03-23 06:08:002.0[facility] WshmzrwSHOTRCNZQF8452-22-93 06:08:000.7[facility] JwftwezSPFXTWNWPK7397-32-07 06:08:009.3[facility] DipnjitMRFJZQCZKW3195-33-52 06:08:001.0[facility] KazdsceECBFABABRY2032-61-18 06:08:000.8[facility] YOCSFFNYDW9511-59-56 06:08:000.2[facility] XiskppqBXKRDRWTRE6261-44-33 06:08:000.1 [facility] OjcfbquRJCVGJNOQK4582-21-84 06:08:002+ *ABN*(03/23/20 1:08 AM)[facility] HuqfeknYPPYZQVKWO5623-72-28 06:08:001+ *ABN*(03/23/20 1:08 AM)[facility] NZMREALWSE0554-72-41 06:08:001+ *ABN*(03/23/20 1:08 AM)[facility]annHEMATOLOGY 2020-03-23 06:08:00Rare *ABN*(03/23/20 1:08 AM)[facility]annB[facility] FLUIDS 2020-03-23 06:08:47943437Qtmjllqp HermannBODY HEBMZG7328-12-40 06:08:195662 [facility] SAUSZF7327-21-24 06:08:0037[facility] FLUIDS 2020-03-23 06:08:004[facility] TQEVAZ4766-66-43 06:08:0054[facility] GNNQGZ2754-23-30 06:08:003[facility] JYDKQY1359-11-26 06:08:002[facility] WGVQCB2891-16-32 06:08:00Bloody *ABN*(03/23/20 1:08 AM)[facility] CGJMOK5013-04-25 06:08:00Red *ABN*(03/23/20 1:08 AM) [facility] PZEZJJ8956-73-07 06:08:00Yellow *ABN*(03/23/20 1:08 AM) [facility] JXPGNS9701-05-83 06:08:00[place] (03/23/20 1:08 AM)[facility]annCHEM RYWMB6456-49-96 06:08:0098[facility]annCHEM YFFFP9512-12-56 06:08:0081[facility] HermannCHEM AFMLR1283-07-63 06:08:0014.40[facility] HermannCHEM ZRKPK3374-05-70 06:08:50679Botljzxr HermannCHEM BJQWL6742-15-75 06:08:004.8 [facility]annCHE[facility] YKDZZ1913-46-89 06:08:0090[facility]annCHEM PANEL 2020-03-23 06:08:0027[facility]annCHEM TNJXJ1920-79-55 06:08:008.7[facility]annCHEM GFNRM1436-34-00 06:08:005.7[facility]annCHEM EQKNB9206-00-45 06:08:002.5[facility]annCHEM MLDKW3179-76-34 06:08:0032[facility]annCHEM LDOQX2816-52-86 06:08:0036[facility]annCHEM DVCIR8592-93-51 06:08:51852 [facility] HermannCHEM YPYWZ0700-96-40 06:08:000.5[facility]annCHEM PANEL 2020-03-23 06:08:0016.8[facility]annCHEM BNDSN5674-85-46 06:08:00 Test Item Value Reference Range Interpretation Comments B/C Ratio (test code = B/C Ratio) 6 1 6-25 [facility]CHE[facility] TGLVF2866-41-19 06:08:003.2[facility]annCHEM PANEL 2020-03-23 06:08:00 Test Item Value Reference Range Interpretation Comments A/G Ratio (test code = A/G Ratio) 0.8 1 0.7-1.6 [facility] HermannCHEM SKPSZ7083-26-54 06:08:003[facility]annCHEM PANEL 2020-03-23 06:08:000.6[facility] AwjbotaHJXSAUCOOS6440-43-13 06:08:0011.5[facility] VzzgmtiRSSTSIIORA7136-81-66 06:08:002.12[facility] MbffsmySBNYLYVCVA5947-54-08 06:08:006.1[facility] XpqfrriQWMNPAUHNP8510-23-49 06:08:0018.4[facility] VEUURPRVGU5139-47-70 06:08:0086.5[facility] KhawqheEGJGTTIHXS8181-78-56 06:08:00 Test Item Value Reference Range Interpretation Comments MCH (test code = MCH) 28.6 pg 27.0-31.0 [facility] KsftguoOIANSLJMOA6986-68-77 06:08:0033.1[facility]annHEMATOLOGY 2020-03-23 06:08:0015.9[facility] FkuqmrdFGIUVFQUNH0873-41-03 06:08:52046Rvvgyouy EhjsdpoKTFBLRFLEP4983-88-10 06:08:006.8[facility] DhxgkoqOCEFRDXTRT8119-19-95 06:08:00 Test Item Value Reference Range Interpretation Comments PT (test code = PT) 13.9 s 12.0-14.7 [facility] KpdktsyOABZUSLLEF2353-49-37 06:08:00 Test Item Value Reference Range Interpretation Comments INR (test code = INR) 1.07 1 0.85-1.17 [facility] FfrfzphKMTEVMIBKZ7242-52-07 06:08:00Normal (03/23/20 1:08 AM)[facility] QkroyecHJSLMYQPUJ5178-73-42 06:08:00Normal (03/23/20 1:08 AM)[facility] JYHLQBQKVK1535-57-19 06:08:0080.9[facility] CpduxwvMVSZTVYWCN7432-97-29 06:08:00 9.1[facility] AwavephBMXPUCGOYL6651-89-89 06:08:007.3[facility] HermannHEMATOLOGY 2020-03-23 06:08:002.0[facility] TrcknxaFZRCFSKBBO7353-41-48 06:08:000.7[facility] GnthlusAOHWFJXNZY3524-23-32 06:08:009.3[facility] ApbachjGWUSOCXYVC3993-46-72 06:08:001.0[facility] BblcskeULGWMKKLNS8857-82-21 06:08:000.8[facility] [place] ZSPLKXWYQE0148-16-66 06:08:000.2[facility] TmgystfXJHTKLOWNL5970-98-37 06:08:000.1 [facility] MtzlosqQOCLBSYCPZ4008-88-97 06:08:002+ *ABN*(03/23/20 1:08 AM)[facility] YysacrrWZFLTIOGVP8876-57-45 06:08:001+ *ABN*(03/23/20 1:08 AM)[facility] KBHMAERJDZ3722-70-83 06:08:001+ *ABN*(03/23/20 1:08 AM)[facility]annHEMATOLOGY 2020-03-23 06:08:00Rare *ABN*(03/23/20 1:08 AM)[facility] 2020-[facility]-05 17:27:00 Test Item Value Reference Range Interpretation Comments K (test code = 2174546781) 4.5 mmol/L 3.5-5 Lab Interpretation (test code = Normal 40277-3) [facility]2020-[facility]-05 16:26:00 Test Item Value Reference Range Interpretation Comments POCT GLU (test code = 9423103197) 100 mg/dL 70-110 Lab Interpretation (test code = Normal 00258-9) [facility] PZULP2959-51-75 21:27:0085[facility]annCHEM WYDGX6746-06-46 21:27:0058[facility]annCHEM KJCMF0511-29-74 21:27:0012.00[facility]annCHEM MPEDB9700-18-30 21:27:33860Zrckwugv [place] CHEM MAQRG0066-11-66 21:27:004.2[facility]annCHEM DLXKW7496-04-85 21:27:0092 [facility]annCHEM NRIZJ8880-48-90 21:27:0026[facility]annCHEM PANEL 2020-02-03 21:27:008.3[facility] HermannCHEM ROMCR3371-79-21 21:27:005.5[facility]annCHEM DFIWF5425-84-19 21:27:002.4[facility]annCHEM QXMKV1835-58-57 21:27:0018[facility]annCHEM AVCMK5653-78-24 21:27:0020[facility]annCHEM YJWEG9504-65-11 21:27:0076[facility]annCHEM SCNAP3220-77-97 21:27:000.3 [facility]annCHEM HGWED2467-11-71 21:27:0015.2[facility]annCHEM PANEL 2020-02-03 21:27:00 Test Item Value Reference Range Interpretation Comments B/C Ratio (test code = B/C Ratio) 5 1 6-25 [facility]annCHE[facility] UGDRT5453-45-12 21:27:003.1[facility]annCHEM PANEL 2020-02-03 21:27:00 Test Item Value Reference Range Interpretation Comments A/G Ratio (test code = A/G Ratio) 0.8 1 0.7-1.6 [facility]annCHE[facility] MWAPK5393-12-81 21:27:004[facility]annHEMATOLOGY 2020-02-03 21:27:008.7[facility] PiokcjgDXQWYHRUQS0304-50-54 21:27:002.94[facility] NpewbsfVKZKLRAUOA1758-56-17 21:27:008.4[facility] AifuzhiSCKNQFCZBN8373-98-94 21:27:0025.0[facility] CirhkklKBCWTJPVHP8933-81-28 21:27:0084.9[facility] [place] NXLDPUMKQP7260-12-35 21:27:00 Test Item Value Reference Range Interpretation Comments MCH (test code = MCH) 28.7 pg 27.0-31.0 [facility] WbegnzdQYPWYQZIXL2536-78-44 21:27:0033.8[facility]annHEMATOLOGY 2020-02-03 21:27:0014.4[facility] YyckstzRYUPIGJVUR1418-12-13 21:27:39813Xijqkmri BormsftGAYHCXYKSI4956-84-34 21:27:007.6[facility] GqrygqtSROYBKBSFB9573-62-40 21:27:007.7[facility] TlvfzieQQWZQMUSUX4414-78-63 21:27:000.4[facility] [place] VPUYTSKCOG8847-75-95 21:27:000.3[facility] ExvpttnWXWLYTJBZP7154-09-65 21:27:000.2 [facility] TzsarvyVUGDNVHFVR1633-58-54 21:27:0086.0[facility]annHEMATOLOGY 2020-02-03 21:27:003.0[facility] TryiulsEUQBQTRLJQ3362-98-58 21:27:003.0[facility] BsagzsvXHGTRTOIKP8041-06-70 21:27:004.0[facility] MnsgwgwYEKAUBSOPX5937-75-84 21:27:002.0[facility] XmpgiujVJLLUIJJSO5917-16-71 21:27:002.0[facility] ATJOHHHPAK1817-15-24 21:27:00Normal (02/03/20 4:27 PM)[facility]annHEMATOLOGY 2020-02-03 21:27:00Normal (02/03/20 4:27 PM)[facility] GlqkkspIZFKGARQYJ3597-79-14 21:27:001+ *ABN*(02/03/20 4:27 PM)[facility]annCHEM MHXZB7853-58-20 21:27:0085 [facility]annCHEM HAZBY8891-42-72 21:27:0058[facility]annCHEM PANEL 2020-02-03 21:27:0012.00[facility]annCHEM INQCG4788-12-98 21:27:67019Iirnexxn HermannCHEM RHKYZ0121-34-12 21:27:004.2[facility] HermannCHEM KHPHR9854-08-76 21:27:0092[facility]annCHEM GKCHF0149-50-86 21:27:0026[facility]annCHEM TDLBA1044-86-60 21:27:008.3[facility]annCHEM XFKEJ3143-48-43 21:27:005.5 [facility]annCHEM IHSZE3709-66-57 21:27:002.4[facility] HermannCHEM PANEL 2020-02-03 21:27:0018[facility]annCHEM KUZUZ2617-91-56 21:27:0020[facility]annCHEM XMSTO9069-91-84 21:27:0076[facility] HermannCHEM OXQOY9611-42-83 21:27:000.3[facility] HermannCHEM JFDLI2715-04-45 21:27:0015.2[facility]annCHEM PSZJT6561-55-82 21:27:00 Test Item Value Reference Range Interpretation Comments B/C Ratio (test code = B/C Ratio) 5 1 6-25 [facility]annCHEM VQOUB2855-23-56 21:27:003.1[facility]annCHEM PANEL 2020-02-03 21:27:00 Test Item Value Reference Range Interpretation Comments A/G Ratio (test code = A/G Ratio) 0.8 1 0.7-1.6 [facility]annCHEM ILOAM1877-26-73 21:27:004[facility]annHEMATOLOGY 2020-02-03 21:27:008.7[facility] BmjjrncWUFCHVGQWF0743-34-82 21:27:002.94[facility] EkrzobgZDIGQHJUYD6710-01-17 21:27:008.4[facility] BoalshaYUFFKCJAXV3603-47-86 21:27:0025.0[facility] PgblkitLNKLLRKSJX5268-37-08 21:27:0084.9[facility] [place] XQEMHHORTL9748-33-36 21:27:00 Test Item Value Reference Range Interpretation Comments MCH (test code = MCH) 28.7 pg 27.0-31.0 [facility] SzeshosJJDVFABSDB5765-79-57 21:27:0033.8[facility] HermannHEMATOLOGY 2020-02-03 21:27:0014.4[facility] PdrmjkeMWYKJADMZP9777-59-16 21:27:89877Ubmvmqwp WrkwydmXGEAIRDYMV4023-76-36 21:27:007.6[facility] UftqvxxTFCADUYUCR2435-77-53 21:27:007.7[facility] KoixhooHMJEXEDAIY4126-81-97 21:27:000.4[facility] FYNHHFWSNT5242-40-61 21:27:000.3[facility] SkoozovZHBZUPOEJP2152-66-66 21:27:000.2 [facility] AopazmdDKRLSKUFTN8615-54-01 21:27:0086.0[facility] HermannHEMATOLOGY 2020-02-03 21:27:003.0[facility] SxkvxunDEVWFELAIF6224-31-59 21:27:003.0[facility] OeucgqeWPINAXPTBI9474-92-92 21:27:004.0[facility] JzrvdmvXHLVURVNUI4986-48-02 21:27:002.0[facility] EciewrbCBGQVTEKNF0718-21-81 21:27:002.0[facility] BJWDMYGXRW5483-10-06 21:27:00Normal (02/03/20 4:27 PM)[facility]annHEMATOLOGY 2020-02-03 21:27:00Normal (02/03/20 4:27 PM)[facility] OfceoluYSSSBWWESF8777-71-74 21:27:001+ *ABN*(02/03/20 4:27 PM)[facility] HermannCHEM KUUCQ8184-03-20 21:27:0085 [facility]annCHEM KRYGB2193-38-40 21:27:0058[facility] HermannCHEM PANEL 2020-02-03 21:27:0012.00[facility] HermannCHEM UZYGL2093-80-26 21:27:59277Qgxubkwt HermannCHEM KPTTY2058-28-83 21:27:004.2[facility] HermannCHEM YORME6060-70-89 21:27:0092[facility] HermannCHEM OSWTE5616-19-45 21:27:0026[facility] HermannCHEM XQNDS1001-41-98 21:27:008.3[facility] HermannCHEM GEKOB8569-81-25 21:27:005.5 [facility]annCHEM IIMFD7822-60-92 21:27:002.4[facility] HermannCHEM PANEL 2020-02-03 21:27:0018[facility] HermannCHEM RILLI5348-47-40 21:27:0020[facility] HermannCHEM HLSKH8627-22-32 21:27:0076[facility] HermannCHEM TXFGA2835-07-87 21:27:000.3[facility] HermannCHEM GWMAC3067-81-56 21:27:0015.2[facility] HermannCHEM KGTRZ7995-59-48 21:27:00 Test Item Value Reference Range Interpretation Comments B/C Ratio (test code = B/C Ratio) 5 1 6-25 [facility]annCHEM THCUT3276-08-09 21:27:003.1[facility] HermannCHEM PANEL 2020-02-03 21:27:00 Test Item Value Reference Range Interpretation Comments A/G Ratio (test code = A/G Ratio) 0.8 1 0.7-1.6 [facility]annCHEM TDWMF1625-14-82 21:27:004[facility]annHEMATOLOGY 2020-02-03 21:27:008.7[facility] TpvnesfYCJEXAKQAB2785-79-62 21:27:002.94[facility] GizlogxOTCDOJKVQJ9610-17-92 21:27:008.4[facility] TfrwabwBXLJGFQOPT1412-54-30 21:27:0025.0[facility] LobjkzgHVAMOJCUEM0531-23-38 21:27:0084.9[facility] [place] NHAIBUFLTV9445-14-05 21:27:00 Test Item Value Reference Range Interpretation Comments MCH (test code = MCH) 28.7 pg 27.0-31.0 [facility] IrdsyduEXBWIITASD4901-59-11 21:27:0033.8[facility]annHEMATOLOGY 2020-02-03 21:27:0014.4[facility] AljqkweEVDPKIXHKK0390-19-53 21:27:94557Ccsppucc CildtzmQKHEOLSRXA3645-61-26 21:27:007.6[facility] XewyskaYMZTHQEIID7998-15-42 21:27:007.7[facility] OdjtsjvYNQYHCPAKA7266-64-22 21:27:000.4[facility] [place] XIJINKJYDT9256-49-99 21:27:000.3[facility] ChrsxycLGCADBAEXG6642-96-31 21:27:000.2 [facility] QlmkhxlCHSVRPECUE8317-54-29 21:27:0086.0[facility]annHEMATOLOGY 2020-02-03 21:27:003.0[facility] WzrrqvzTIBISUOPHB9745-68-90 21:27:003.0[facility] SunlecbUBVRKWHLOT1030-18-41 21:27:004.0[facility] UkadxhwEJEVZYSKBX6347-83-28 21:27:002.0[facility] BafifztIZXUYQVKRZ2212-10-97 21:27:002.0[facility] [place] COIXVVCCLK6418-08-21 21:27:00Normal (02/03/20 4:27 PM)[facility] 2020-02-03 21:27:00Normal (02/03/20 4:27 PM)[facility] DrujfpjCYQSSMAMQI3905-19-20 21:27:001+ *ABN*(02/03/20 4:27 PM)[facility] BfqpdvuVWCKVWMKCY5686-25-79 21:14:00 Not Detected (02/03/20 4:14 PM)[facility] NngxrgxCJYZCTFHFE2876-88-41 21:14:00Not Detected (02/03/20 4:14 PM)[facility] YexwlysCSLKQDAAYX1343-53-00 21:14:00Not Detected (02/03/20 4:14 PM)[facility] DZLKKQ6173-68-09 18:30:00 Colorless (11/04/19 12:30 PM)[facility] NGQUYK3641-19-77 18:30:00Clear (11/04/19 12:30 PM)[facility] NFXZZL8784-80-08 18:30:0011[facility] MJDZOA4192-22-81 18:30:0011[facility] WDYRBL3505-99-11 18:30:0011[facility] TQBQEY9019-37-44 18:30:0056[facility] NSDRSN0052-25-88 18:30:0033[facility] HIUTTD1854-62-32 18:30:00[place] (11/04/19 12:30 PM)[facility] IPAMUG0728-09-78 18:30:00Colorless (11/04/19 12:30 PM)[facility] WPLLJC0504-87-01 18:30:00Clear (11/04/19 12:30 PM)[facility] EJDTWQ5389-73-70 18:30:0011[facility] OFJTNC3296-89-29 18:30:0011[facility] RNZJMM5294-97-21 18:30:0011 [facility] YZQGYO4437-56-94 18:30:0056[facility] FLUIDS 2019-11-04 18:30:0033[facility] RKJRAB3919-16-88 18:30:00[place] (11/04/19 12:30 PM)[facility] AUZIQU0905-35-34 18:30:00Colorless (11/04/19 12:30 PM)[facility] DFLHNB0492-87-60 18:30:00Clear (11/04/19 12:30 PM)[facility] ZVBKGG0565-77-20 18:30:0011[facility] WHZEPK9246-44-57 18:30:0011[facility] TLVDLD1773-52-95 18:30:0011 [facility] OULOHP0789-61-57 18:30:0056[facility] FLUIDS 2019-11-04 18:30:0033[facility] UNIOKK4965-76-28 18:30:00[place] (11/04/19 12:30 PM)[facility]annCHE[facility] NSBGW2229-77-87 18:00:72546Uvgpjcej HermannCHEM WMFNJ3711-47-83 18:00:0040[facility]annCHE[facility] DHSQW1584-55-65 18:00:0010.60[facility] YVQHV1827-45-37 18:00:44841Kcyjspeu [place] CHEM XWDWW3785-79-68 18:00:003.8[facility]annCHE[facility] MBPMH5717-29-56 18:00:80133 [facility] ONIUD4569-13-91 18:00:0032[facility]annCHEM PANEL 2019-11-04 18:00:009.3[facility]CHE[facility] XCBZV3924-13-68 18:00:0011.8[facility]CHE[facility] TOQAE5125-84-75 18:00:005[facility]CHE[facility] HUVBA4881-15-52 18:00:74832Izcypema HermannCHEM KWARQ1924-01-25 18:00:0040[facility] OXSKV1943-77-37 18:00:0010.60[facility]CHE[facility] VKNLM7243-05-35 18:00:66459 [facility] OGJCL6175-10-48 18:00:003.8[facility]annCHEM PANEL 2019-11-04 18:00:34137Ylsegrxg HermannCHEM YMJBS1985-02-92 18:00:0032[facility]annCHE[facility] UKTDC2041-84-50 18:00:009.3[facility]CHE[facility] ZENZC6441-94-82 18:00:0011.8[facility]CHE[facility] OQWTF2617-17-10 18:00:005[facility]CHE[facility] GMQLE9577-88-06 18:00:51025Wvkdboxd HermannCHEM EYLRW8338-58-49 18:00:0040 [facility] AUOWX2806-60-29 18:00:0010.60[facility]annCHE[facility] PANEL 2019-11-04 18:00:80939Vxmuelhu HermannCHEM MEXZG9818-50-45 18:00:003.8[facility]annCHE[facility] ZBCBU3932-25-27 18:00:50898Alqtqbqs HermannCHEM KTLCP1563-40-07 18:00:0032[facility]annCHE[facility] IRAAB7048-52-09 18:00:009.3[facility]annCHE[facility] EZGCS0270-64-69 18:00:0011.8[facility]annCHE[facility] VYGZW8699-05-73 18:00:005 [facility] WicejsqDVXTVQRDTI1426-85-40 18:08:0010.2[facility] HermannTOXICOLOGY 2019-11-03 18:08:0010.2[facility] AedtpsjNXHFJDKLKR5303-88-83 18:08:0010.2[facility]annCHEM MEBUZ5213-89-56 13:45:50885Icvnpgfx HermannCHEM DYECN7889-58-87 13:45:0035[facility]annCHE[facility] NOUQA0186-41-51 13:45:009.71[facility]annCHE[facility] GKBTB1788-05-16 13:45:11481Thavyalj HermannCHEM EQUSA5744-83-13 13:45:003.4 [facility]CHE[facility] QIBVC8796-05-29 13:45:34816Rkiuozrh HermannCHEM PANEL 2019-11-03 13:45:0029[facility]annCHE[facility] FRJSQ6201-14-26 13:45:009.0[facility]annCHE[facility] GQDRG2782-89-50 13:45:0011.4[facility]annCHE[facility] DYYJA0084-53-13 13:45:005[facility] BmokmzjTBIWFNSEBV6737-70-56 13:45:004.3[facility] [place] SDCOVEPVGW7823-10-59 13:45:003.00[facility] TdemxejEAEXTLLIHF8796-27-40 13:45:00 8.4[facility] UnifjgfWHIAYUJPCS8373-92-34 13:45:0025.3[facility]annHEMATOLOGY 2019-11-03 13:45:0084.3[facility] KuasmauONKXFTSGQP9059-31-88 13:45:00 Test Item Value Reference Range Interpretation Comments MCH (test code = MCH) 28.2 pg 27.0-31.0 [facility] HovwiacUYAHWBKSCW2173-83-70 13:45:0033.4[facility]annHEMATOLOGY 2019-[facility]-03 13:45:0014.5[facility] LngsixtSRSSOMYBOQ1528-94-09 13:45:40750Ycjwksbj RjtxsziMQPDECZPUC2550-30-59 13:45:006.5[facility] IoubdohRTGRZICTCP5353-41-65 13:45:0066.4[facility] ErasbsfJLTRCAZAWF0163-53-66 13:45:0019.6[facility] [place] [place] RUESPDQZOR3890-53-09 13:45:009.3[facility] AxaqyniZSSHBKCKLY5232-99-09 13:45:003.7 [facility] PctowmjJRAQXYWHBO5682-15-23 13:45:001.0[facility]annHEMATOLOGY 2019-11-03 13:45:002.8[facility] SfrgpisEETWZZGUBN5444-61-03 13:45:000.8[facility] SmzhyawFFSYLGFFTF5769-64-93 13:45:000.4[facility] JsjyyuhJRZPUKXPNF2665-28-36 13:45:000.2[facility] HermannCHEM DQRGH1180-24-90 13:45:10431Zinhsenj HermannCHEM GTPEC0288-89-79 13:45:0035[facility] HermannCHEM TCRGR1433-08-54 13:45:009.71 [facility]annCHEM BJYYL9949-98-41 13:45:06951Hskauyxx HermannCHEM PANEL 2019-11-03 13:45:003.4[facility] HermannCHEM WHISR5626-79-12 13:45:46615Nshqivxz HermannCHEM QKRQN8940-24-57 13:45:0029[facility]annCHEM AYZPO7245-96-03 13:45:009.0[facility]annCHEM OBGTK3072-89-77 13:45:0011.4[facility] HermannCHEM VXZUU3088-99-55 13:45:005[facility] UqchatxSFPJAYSBAP0409-59-77 13:45:004.3 [facility] RrmskhhJQOPFINNZK3016-59-81 13:45:003.00[facility]annHEMATOLOGY 2019-11-03 13:45:008.4[facility] TikjqvcDSDCOZJHCY1496-92-41 13:45:0025.3[facility] HxapgadVDKMBHKSVS9044-17-53 13:45:0084.3[facility] TxgaaqpULSDWACVWO5615-03-48 13:45:00 Test Item Value Reference Range Interpretation Comments MCH (test code = MCH) 28.2 pg 27.0-31.0 [facility] TbiiptaSHCELZITKK3499-87-94 13:45:0033.4[facility]annHEMATOLOGY 2019-11-03 13:45:0014.5[facility] UkwdbhnVZTSEPGJQP5029-77-38 13:45:70601Motefvwr OamgkbhQEVBFUPGQO4441-54-45 13:45:006.5[facility] LhnujwsAALQQLHYSR4744-98-99 13:45:0066.4[facility] DdfgkkjUKPBBSKMSV5915-44-52 13:45:0019.6[facility] [place] [place] KLZSRMABES3530-06-52 13:45:009.3[facility] ZrbqieyQRGPIYQSGA1779-26-53 13:45:003.7 [facility] JgpptmlXAELLZVIKO8672-91-42 13:45:001.0[facility]annHEMATOLOGY 2019-11-03 13:45:002.8[facility] UsfquplJTXBQNBHZL3858-32-23 13:45:000.8[facility] ZipzrdbFUDKVDIVJY4930-85-58 13:45:000.4[facility] NhgncqsQMCITGCUFA8652-35-25 13:45:000.2[facility] HermannCHEM YWXUF5615-22-94 13:45:23164Dzimvrej HermannCHEM BXJSC7627-82-23 13:45:0035[facility]annCHEM WJXMH0679-11-04 13:45:009.71 [facility]annCHEM HVYJY6575-66-89 13:45:77147Wfxoamvu HermannCHEM PANEL 2019-11-03 13:45:003.4[facility]annCHEM VBFGF8874-77-29 13:45:04173Awggttwc HermannCHEM URPEE5364-96-64 13:45:0029[facility]annCHEM YUWVA4408-70-34 13:45:009.0[facility]annCHEM XUGAJ0171-39-64 13:45:0011.4[facility]annCHEM HXKHW3703-56-03 13:45:005[facility] VvgpxvjDGXFXTQZQB4405-87-58 13:45:004.3 [facility] ZjmvfqvVRSISPVNLB6801-57-91 13:45:003.00[facility]annHEMATOLOGY 2019-11-03 13:45:008.4[facility] JsecnqzVXOOAOJHPU2921-84-74 13:45:0025.3[facility] FtrdmilXOBLMVVXGW2121-51-61 13:45:0084.3[facility] XnkaxtuOYMWWJOYHF9917-53-36 13:45:00 Test Item Value Reference Range Interpretation Comments MCH (test code = MCH) 28.2 pg 27.0-31.0 [facility] ChatpjjPEQPQBHREM7462-93-93 13:45:0033.4[facility]annHEMATOLOGY 2019-11-03 13:45:0014.5[facility] HhyuqomLFERUWCRJZ0174-27-21 13:45:63103Fnzcgtnw HgflxfyOFHGNCCHGZ0542-90-10 13:45:006.5[facility] OrjshgjMVEZZGUCQK5107-53-10 13:45:0066.4[facility] YblxkgwOFUMWUQOFR5578-25-77 13:45:0019.6[facility] JUSIOKUPDW0893-56-60 13:45:009.3[facility] WdrycjrWPVTZLHFEN3748-65-70 13:45:003.7 [facility] UfroqhlPYCGFBXQSA9281-42-91 13:45:001.0[facility]annHEMATOLOGY 2019-11-03 13:45:002.8[facility] OmldbpbZNDGUIYINB2477-90-52 13:45:000.8[facility] MmgzhcnMYGBZZQASS7777-68-72 13:45:000.4[facility] GaphofjXKKYTPZNRU5687-68-61 13:45:000.2[facility] PtivejpDYQFYOFQRWEI5158-57-13 13:25:38545Efpccewq [facility] NBIRQRRLBNXB9593-33-80 13:25:003.7[facility] HlbnlqrGERZWYWBYVIC9492-17-92 13:25:0099[facility] BkujghkIRUKWWKCTMPP0454-83-38 13:25:65131Hejwulbx [place] BYMIKHEDLLDN9879-39-86 13:25:0042[facility] XcjuqlqHZDIGIXXFZXH5082-84-69 13:25:00 9.35[facility] CiljwtrGTXTVCDLVSID8795-23-10 13:25:0032[facility] VPUMXBYGMWHE4433-93-39 13:25:008.8[facility] JnzxongUPIWECDSKXUE9182-62-65 13:25:008.7[facility] QmrqqjpRXZBJSFUJQMN5032-45-11 13:25:006[facility] [place] NAVCEBXUFFNM4316-35-86 13:25:99035Tpjsfxcb RinitmjEIJVBCIOTWTQ3315-64-60 13:25:003.7[facility] SuqhhcvIJXQMAHDWBSQ6574-20-97 13:25:0099[facility] PHUDYDUEQBRW5029-74-70 13:25:20597Ldahzytp RhidhpvLGEIRZDLTNTJ9605-31-00 13:25:0042[facility] IcpcxulSMGOADNKRLPP7158-39-44 13:25:009.35[facility] LPAGWCIQLUTN3099-65-92 13:25:0032[facility] AmzenkjAMCMICWDKNCB8842-23-26 13:25:00 8.8[facility] LsbqnkwEBLWFGZILYCP6467-50-41 13:25:008.7[facility] SKSIGSLKAOKH3940-79-99 13:25:006[facility] WfbnsduXRZCTPYPXGFM2965-98-75 13:25:00 136[facility] HstpzeoPGHSJVIXXQOX7820-70-06 13:25:003.7[facility] [place] GAICYHRVMJBW3994-39-65 13:25:0099[facility] JjquvcuOWDGWQWOMMVY5384-67-19 13:25:00 137[facility] RxxoplaXWRJHLNUYAXC5577-89-14 13:25:0042[facility] HermannELECTROLYTES 2019-11-02 13:25:009.35[facility] EfkfskpUVRUAIVETRUO0839-16-53 13:25:0032[facility] RldwjxoWBSELAUBWEJF6986-56-74 13:25:008.8[facility] TgpwzpxRYRDCGDKDNAV3336-15-50 13:25:008.7[facility] LxnrnqdBQKTAEROCXBC7811-73-54 13:25:006[facility] RBMALFSXBO4107-17-23 17:58:0010.6[facility] YwfxozaZIHGWWOWCR1106-20-68 17:58:00 10.6[facility] DefjyqvNGIHJWIKWW5256-55-69 17:58:0010.6[facility] HermannBODY FLUIDS 2019-11-01 15:00:00Colorless (11/01/19 9:00 AM)[facility]annB[facility] FLUIDS 2019-11-01 15:00:00Slight Cloudy (11/01/19 9:00 AM)[facility]annB[facility] FLUIDS 2019-11-01 15:00:50270Jcogspuu HermannBODY RDCSKN4619-56-24 15:00:0054[facility]annB[facility] TSKVVF7481-78-48 15:00:0020[facility]annB[facility] VATFNX2751-53-63 15:00:0041[facility]annB[facility] MMPCAY7627-67-21 15:00:0035[facility]annB[facility] YJQLYW1354-63-63 15:00:004[facility] WAATQO1530-97-05 15:00:00[place] (11/01/19 9:00 AM)[facility] NEKXFO5382-79-63 15:00:00Colorless (11/01/19 9:00 AM)[facility] DLLYWU3863-97-15 15:00:00Slight Cloudy (11/01/19 9:00 AM)[facility] OKBGOW7299-09-33 15:00:93274Jggkojrv HermannBODY KMYXSU7511-44-20 15:00:0054[facility]annB[facility] EBQDSA0565-81-29 15:00:0020[facility] PEMXYW4048-41-06 15:00:0041[facility] QMGFAW1785-05-84 15:00:0035[facility]annB[facility] HKOHEP6620-69-49 15:00:004 [facility] IZJYJG9666-53-00 15:00:00[place] (11/01/19 9:00 AM)[facility] CKCAKY6924-13-99 15:00:00Colorless (11/01/19 9:00 AM)[facility] BODY RHEWLM8648-97-04 15:00:00Slight Cloudy (11/01/19 9:00 AM)[facility] BODY SRKWPL2402-98-99 15:00:10610Azujpzdf HermannBODY QWELDS6238-89-59 15:00:00 54[facility]annB[facility] UAVVSS0149-65-16 15:00:0020[facility]annB[facility] FLUIDS 2019-11-01 15:00:0041[facility] HAZWOX4356-27-51 15:00:0035[facility] EHGLCY1401-33-28 15:00:004[facility] PVKYWT8167-60-81 15:00:00[place] (11/01/19 9:00 AM)[facility] DQAFAH7359-89-09 18:35:00 Colorless (10/31/19 12:35 PM)[facility] JAYFJP9629-27-05 18:35:00Slight Cloudy (10/31/19 12:35 PM)[facility] BJSAZR6423-01-76 18:35:54324 [facility] THLJWZ4215-73-13 18:35:000[facility]annBODY FLUIDS 2019-10-31 18:35:0035[facility]annB[facility] MTATRQ9770-35-85 18:35:0021[facility] BNDGUA2128-78-52 18:35:0043[facility] ACXKBC9193-67-94 18:35:001[facility] NZJTTY1282-65-98 18:35:00[place] (10/31/19 12:35 PM)[facility] EDSTXY2284-20-90 18:35:00Colorless (10/31/19 12:35 PM) [facility] WCYRYE3126-54-72 18:35:00Slight Cloudy (10/31/19 12:35 PM) [facility] BUAMFO1120-85-58 18:35:06944Dyxxohjz HermannBODY FLUIDS 2019-10-31 18:35:000[facility] TMEFFN5270-53-32 18:35:0035[facility] ENIIMJ3907-41-92 18:35:0021[facility] UFRADG6360-58-48 18:35:0043[facility] HMTBNV8806-08-05 18:35:001[facility] FATTJJ9723-63-75 18:35:00[place] (10/31/19 12:35 PM)[facility] FLUIDS 2019-10-31 18:35:00Colorless (10/31/19 12:35 PM)[facility] FLUIDS 2019-10-31 18:35:00Slight Cloudy (10/31/19 12:35 PM)[facility] FLUIDS 2019-10-31 18:35:77733Dzhclinx HermannBODY UAWXDC4746-22-84 18:35:000[facility]annB[facility] GJACNE0014-08-81 18:35:0035[facility]annB[facility] OZOPWH6681-09-91 18:35:0021[facility]annB[facility] JOUFBT8208-52-02 18:35:0043[facility] RJJPBG0091-93-59 18:35:001[facility]annB[facility] CRHTHM8675-41-53 18:35:00[place] (10/31/19 12:35 PM)[facility]annCHEM DBJZE9103-95-53 10:35:004.3[facility] HermannCHEM BLELV4611-49-68 10:35:002.0[facility] YvohhqyNCJEWKYTAD0434-58-20 10:35:006.3[facility] WtpftkgCTBHETXIXU1509-44-79 10:35:002.76[facility] [place] VMSEARTJBG2263-76-32 10:35:008.1[facility] UwsuvfgJYLCQPREXE0666-07-81 10:35:00 23.5[facility] SmhggyiZUEVJSVBSB3824-54-64 10:35:0085.2[facility]annHEMATOLOGY 2019-10-31 10:35:00 Test Item Value Reference Range Interpretation Comments MCH (test code = MCH) 29.2 pg 27.0-31.0 [facility] TqybmgvUTDWEEEYYJ5657-06-26 10:35:0034.3[facility]annHEMATOLOGY 2019-10-31 10:35:0014.5[facility] AxlimeoJEQRWVKPEI5145-42-88 10:35:37353Rljiunco ScpsghjNAUDWZGGBV9391-83-65 10:35:007.0[facility] VojaokdRQGZLWOSDU1216-65-11 10:35:0077.7[facility] VnpouyiVYCUHPZXWV2790-13-39 10:35:0010.2[facility] KNLQBXIDYQ0818-08-59 10:35:0010.0[facility] TmyhrptVKLJTLHFHM0433-61-34 10:35:00 1.7[facility] RclahwdRIUMANRBRP9658-87-56 10:35:000.4[facility]annHEMATOLOGY 2019-10-31 10:35:004.9[facility] ZjljnuwDTBSWKYHGN1451-49-04 10:35:000.6[facility] AuqpkuxRZXXFQCLTR8497-20-57 10:35:000.6[facility] EtgisvbMCMTRPGXHO0691-74-20 10:35:000.1[facility] HermannCHEM ALNKQ4864-83-65 10:35:004.3[facility] HermannCHEM GOUWH2696-92-95 10:35:002.0[facility] PokipmsOHENPVPRKC5897-24-81 10:35:006.3 [facility] CsxjcneLKOHBJIYES6364-77-30 10:35:002.76[facility]annHEMATOLOGY 2019-10-31 10:35:008.1[facility] IgaiynlXTFMENROEZ8709-87-31 10:35:0023.5[facility] EbqopqrUXCSEVQULR0461-90-85 10:35:0085.2[facility] LdokebvCPRRIFMHSA4402-79-92 10:35:00 Test Item Value Reference Range Interpretation Comments MCH (test code = MCH) 29.2 pg 27.0-31.0 [facility] EmmojnsMLHZDFTROA7356-02-53 10:35:0034.3[facility]annHEMATOLOGY 2019-10-31 10:35:0014.5[facility] IphctqmFMQPFLCFLZ7303-51-99 10:35:48510Hhuobcrk DizgatbQUASCKKWBK4981-82-11 10:35:007.0[facility] ImlerksYZVOABYAIZ3004-76-56 10:35:0077.7[facility] MtagdpnFMBCJZWOXK8154-73-75 10:35:0010.2[facility] [place] HPKQSRTVTL5987-63-13 10:35:0010.0[facility] SwowrmbETPKUUTCGL1322-84-83 10:35:00 1.7[facility] FpmvxykMZITEDHXJZ7550-73-04 10:35:000.4[facility]annHEMATOLOGY 2019-10-31 10:35:004.9[facility] UaobgjoTQLSKDKUNU8750-69-31 10:35:000.6[facility] JtozxrgXYOAMYBFNZ7398-73-49 10:35:000.6[facility] EgebslzWEGITTIHEF2381-78-03 10:35:000.1[facility] HermannCHEM MMQDQ9508-70-64 10:35:004.3[facility] HermannCHEM EKBMO9492-15-39 10:35:002.0[facility] LwnysatJVDXGISBRJ4876-38-43 10:35:006.3 [facility] NiguzeuGMYZDBAHLP8122-06-69 10:35:002.76[facility]annHEMATOLOGY 2019-10-31 10:35:008.1[facility] DwsendoVDFAKJUDMV2173-40-51 10:35:0023.5[facility] SnffoyzPGRPENTVXI2459-91-40 10:35:0085.2[facility] IkqmveuJWYLYKUUFU8500-39-54 10:35:00 Test Item Value Reference Range Interpretation Comments MCH (test code = MCH) 29.2 pg 27.0-31.0 [facility] PahjelgSHDYSUJHUN8448-50-38 10:35:0034.3[facility]annHEMATOLOGY 2019-10-31 10:35:0014.5[facility] KujupraBCXFSOPYTX8731-23-74 10:35:09887Rgperzme CxoleckGRRRMDCJJN1399-25-20 10:35:007.0[facility] EvwlkceOEBHNUDADY5341-26-73 10:35:0077.7[facility] VlvanrzXAPZNEZDBX9382-56-03 10:35:0010.2[facility] WXKWPXRIPZ9762-08-30 10:35:0010.0[facility] ItpwexnJJOGGAOSRF0121-41-30 10:35:00 1.7[facility] DmvqzeoWYSJDHJQVD0104-75-75 10:35:000.4[facility]annHEMATOLOGY 2019-10-31 10:35:004.9[facility] IzwajffMGXXVYULAZ2129-17-15 10:35:000.6[facility] AwboguhBHBBVWETWW7601-59-41 10:35:000.6[facility] BpadxwaKSPVMHPZGF6868-43-48 10:35:000.1[facility] HermannMOLECULAR SFTBJGVDMM4465-28-92 19:34:00Nasophrngl Swb *NA*(10/30/19 1:34 PM)[facility] HermannMOLECULAR VTQGJBSKRE0923-48-02 19:34:00 Negative *NA*(10/30/19 1:34 PM)[facility] HermannMOLECULAR XMLZQAPVGL8101-05-21 19:34:00Negative *NA*(10/30/19 1:34 PM)[facility]annMOLECULAR DIAGNOSTIC 2019-10-30 19:34:00Positive *ABN*(10/30/19 1:34 PM)[facility] HermannMOLECULAR YWNNAPTMBM9220-73-41 19:34:00Nasophrngl Swb *NA*(10/30/19 1:34 PM)[facility]annMOLECULAR PGWCTYWREQ8680-36-58 19:34:00Negative *NA*(10/30/19 1:34 PM) [facility]annMOLECULAR ZVNMDYWKFU6156-39-09 19:34:00Negative *NA*(10/30/19 1:34 PM)[facility] HermannMOLECULAR TRWCOPKHUQ7480-17-84 19:34:00Positive *ABN*(10/30/19 1:34 PM)[facility] HermannMOLECULAR KCNIIMXHDO7195-68-49 19:34:00 Nasophrngl Swb *NA*(10/30/19 1:34 PM)[facility]annMOLECULAR DIAGNOSTIC 2019-10-30 19:34:00Negative *NA*(10/30/19 1:34 PM)[facility] HermannMOLECULAR NKJBQYFNQY4438-65-12 19:34:00Negative *NA*(10/30/19 1:34 PM)[facility] MOLECULAR QQKTBPGSAS2511-70-03 19:34:00Positive *ABN*(10/30/19 1:34 PM)[facility] HermannIMIPENEM:SUSC:PT:ISOLATE:ORDQN:OUB0576-91-46 18:00:00Enterococcus Species [facility]annIMIPENEM:SUSC:PT:ISOLATE:ORDQN:ARL0154-62-34 18:00:00Pseudomonas putidaMemorial HermannIMIPENEM:SUSC:PT:ISOLATE:ORDQN:PCE7768-88-26 18:00:00 Enterococcus SpeciesMemorial HermannIMIPENEM:SUSC:PT:ISOLATE:ORDQN:NYV6787-60-92 18:00:00Pseudomonas putidaMemorial HermannIMIPENEM:SUSC:PT:ISOLATE:ORDQN:MATTIE 2019-10-30 18:00:00Enterococcus SpeciesMem[facility] IMIPENEM:SUSC:PT:ISOLATE:ORDQN:WTM4043-65-27 18:00:00Pseudomonas putidaMemorial HermannCHEM DAJIK7585-34-89 17:21:000.6[facility] HermannCHEM HBJDA5102-70-94 17:21:000.6[facility] HermannCHEM CXOCE1526-72-64 17:21:000.6[facility] HermannCHEM RVRXE2227-73-68 10:56:002.1[facility] HermannCHEM LSIFQ6609-09-01 10:56:004.5 [facility] LmsyjyrPAOYFXABGL8276-59-24 10:56:006.7[facility] HermannHEMATOLOGY 2019-10-30 10:56:002.47[facility] DyuptubSAHFHWLKML3121-79-46 10:56:007.2[facility] MfhudzwBRIYLCSSYH5245-94-81 10:56:0021.1[facility] ZfzctzaACDRLNVRHG5560-06-16 10:56:0085.2[facility] YpysuxrNVHZCNVLAU8413-66-40 10:56:00 Test Item Value Reference Range Interpretation Comments MCH (test code = MCH) 28.9 pg 27.0-31.0 [facility] HqlakqyVDPNMWAXYW7073-40-42 10:56:0034.0[facility] HermannHEMATOLOGY 2019-10-30 10:56:0014.6[facility] WxhislhLYQHJWNMKM4164-71-39 10:56:75924Luowkxdc XfnbefwGBOCYNOIIT9688-27-71 10:56:007.2[facility] LuoobffQFMYUTWUWK8297-92-52 10:56:0087.8[facility] LwknlngHSAUJXISSR3704-07-87 10:56:003.9[facility] LHTQYBBDJU5509-33-93 10:56:006.8[facility] NqnqmseHMQAIIBCSY2628-38-76 10:56:001.1 [facility] KoelqpgEMGDZIHCXU7730-72-78 10:56:000.4[facility]annHEMATOLOGY 2019-10-30 10:56:005.9[facility] PwwpiwrSSGBSBWIWL5539-87-60 10:56:000.3[facility] PonztgsSTFYRXMIVU1700-87-03 10:56:000.5[facility] VcpacpnNAAHCEWFGS6940-57-32 10:56:000.1[facility] HermannCHEM OAYPE2514-72-97 10:56:002.1[facility] HermannCHEM ERDPA7871-87-00 10:56:004.5[facility] LwlofrzGCVIXNHYSU1417-60-36 10:56:006.7 [facility] YlinexcHDBHXUYQGX9366-30-14 10:56:002.47[facility]annHEMATOLOGY 2019-10-30 10:56:007.2[facility] MtxpfqkUBAESOYIWH2800-17-51 10:56:0021.1[facility] GxtlvemKKJAPBYJPQ5854-75-44 10:56:0085.2[facility] QfgecviZVVKOUVUVF9435-37-08 10:56:00 Test Item Value Reference Range Interpretation Comments MCH (test code = MCH) 28.9 pg 27.0-31.0 [facility] KmkzaooNTFTKGYDRJ5113-34-53 10:56:0034.0[facility] HermannHEMATOLOGY 2019-10-30 10:56:0014.6[facility] CvclvauEYLTSOACYX4571-83-02 10:56:32970Akmswhsh YmrcprbTHCZUKFQCN7178-12-14 10:56:007.2[facility] BhggtvhKVTJTYAFLL7614-52-50 10:56:0087.8[facility] NyluzvrPISFGETMIM3514-70-68 10:56:003.9[facility] [place] QWEJAPUMJC6464-69-52 10:56:006.8[facility] ItcgaucLABVNBSDLY3515-05-09 10:56:001.1 [facility] RebsrljCLRIRGFPQG2080-23-60 10:56:000.4[facility] HermannCHEM PANEL 2019-10-30 10:56:002.1[facility] ZmglllkURXVGEQJYG3497-46-64 10:56:005.9[facility] RmdnhrnCYVWOKVENX6352-36-38 10:56:000.3[facility] LaxnrpgQJZLBQKBUX7924-96-62 10:56:000.5[facility] WcwkrunRBXQASRHWC1872-63-30 10:56:000.1[facility] HermannCHEM EJODW5276-46-65 10:56:004.5[facility] FtreatpXRYGIAUQCM3790-04-55 10:56:006.7 [facility] IjmoeveYWZSTHRBKQ2823-41-24 10:56:002.47[facility]annHEMATOLOGY 2019-10-30 10:56:007.2[facility] UxzwkqcWVXCGFXEFJ7050-96-11 10:56:0021.1[facility] IvgbcamEOTFSEWVTM0944-90-00 10:56:0085.2[facility] AubwbhwYJZNHWJRJQ8930-85-92 10:56:00 Test Item Value Reference Range Interpretation Comments MCH (test code = MCH) 28.9 pg 27.0-31.0 [facility] RudawlrJMXEMCYIFH7932-97-60 10:56:0034.0[facility] HermannHEMATOLOGY 2019-10-30 10:56:0014.6[facility] JfrqmluVXXEDTNTSD8617-89-70 10:56:77003Kzemngpz FxfmxthFJWQOWRUOI9209-75-26 10:56:007.2[facility] WpdgnriSDSZNEXDIL7391-33-74 10:56:0087.8[facility] NraqspkSVQYXSGIRA4233-23-67 10:56:003.9[facility] [place] LZNSMHMJYP0666-19-16 10:56:006.8[facility] NlceenmVJJJYUTNDV7258-05-96 10:56:001.1 [facility] CxechaeCRBWLXZWGW6376-17-81 10:56:000.4[facility]annHEMATOLOGY 2019-10-30 10:56:005.9[facility] BnqlosoZFOSETPORB8416-47-09 10:56:000.3[facility] OgqmuwmGJCSVSGRMY0923-86-50 10:56:000.5[facility] OlcgmvvIRSWNBURHM8486-20-29 10:56:000.1[facility] HermannCHEM ZCKCR4152-61-95 22:52:002.2[facility] HermannCHEM CKEOE4341-39-85 22:52:005.8[facility] HermannCHEM KOWXT0410-44-38 22:52:002.2 [facility]CHE[facility] POFJQ0152-01-38 22:52:005.8[facility]annCHEM PANEL 2019-10-29 22:52:002.2[facility]CHE[facility] CHLIC5971-10-89 22:52:005.8[facility]annCARDIAC QDCKEAT2259-14-37 10:47:000.02[facility]annCARDIAC ENZYMES 2019-10-29 10:47:000.02[facility]annCARD[facility]AC SBLSLIW4478-32-38 10:47:000.02 [facility] LGVYPZF2823-17-97 07:19:000.02[facility]annC[facility]AC FGDCXMR3349-62-44 07:19:000.02[facility]annCARDIAC PHHXESN8601-03-69 07:19:00 0.02[facility]annCARD[facility]AC QCVYQHK2350-86-29 03:06:00<0.02[facility] [place] CHEM HFMAI3440-55-39 03:06:005.5[facility]annCHEM PEGJY6825-84-49 03:06:002.3 [facility]annCHE[facility] LRWKE6529-92-34 03:06:0022[facility]annCHEM PANEL 2019-10-29 03:06:0050[facility]annCHE[facility] ZBFBS9729-66-18 03:06:0068[facility] BFPJA0768-33-16 03:06:000.6[facility]annCHE[facility] ATAHA0806-85-95 03:06:00 Test Item Value Reference Range Interpretation Comments B/C Ratio (test code = B/C Ratio) 5 04-02 [facility] AQVCT1206-49-83 03:06:003.2[facility]annCHEM PANEL 2019-10-29 03:06:00 Test Item Value Reference Range Interpretation Comments A/G Ratio (test code = A/G Ratio) 0.7 1 0.7-1.6 [facility] BmbmingYPSEIDRDOS9518-69-83 03:06:00Normal (10/28/19 9:06 PM)[facility] KvqppqaPRBUKNFMZC4380-88-85 03:06:000.1[facility]annCARDIAC WUJIHNG5967-61-23 03:06:00<0.02[facility]annCHE[facility] AIKSP4655-04-20 03:06:005.5[facility] CHEM LYDUP3239-47-60 03:06:002.3[facility]annCHE[facility] OCQEU9026-00-32 03:06:0022 [facility] BOEHD0542-38-55 03:06:0050[facility]annCHE[facility] PANEL 2019-10-29 03:06:0068[facility]CHE[facility] SOETI9811-48-48 03:06:000.6[facility]annCHE[facility] ZSYYJ1201-43-30 03:06:00 Test Item Value Reference Range Interpretation Comments B/C Ratio (test code = B/C Ratio) 5 04-02 [facility] TXCAJ5570-82-07 03:06:003.2[facility]annCHEM PANEL 2019-10-29 03:06:00 Test Item Value Reference Range Interpretation Comments A/G Ratio (test code = A/G Ratio) 0.7 1 0.7-1.6 [facility] XuqpxwbGLOYFWUPER7921-58-48 03:06:00Normal (10/28/19 9:06 PM)[facility] UnmwrypTCVWHKFVYN6698-36-89 03:06:000.1[facility]annCARDIAC KWKUVQN8179-48-53 03:06:00<0.02[facility]annCHE[facility] XFVHI8583-63-08 03:06:005.5[facility] [place] CHEM WCOXH0969-11-50 03:06:002.3[facility]annCHEM ZWOKQ6527-28-24 03:06:0022 [facility]CHE[facility] CEOMU8629-81-52 03:06:0050[facility]annCHEM PANEL 2019-10-29 03:06:0068[facility]CHE[facility] ZWUDQ4583-76-69 03:06:000.6[facility]annCHE[facility] DIIOR0921-50-95 03:06:00 Test Item Value Reference Range Interpretation Comments B/C Ratio (test code = B/C Ratio) 5 1 6-25 [facility] NMLYJ3580-20-32 03:06:003.2[facility]annCHEM PANEL 2019-10-29 03:06:00 Test Item Value Reference Range Interpretation Comments A/G Ratio (test code = A/G Ratio) 0.7 1 0.7-1.6 [facility] TibimvnPKUQCVQMBC6841-58-56 03:06:00Normal (10/28/19 9:06 PM)[facility] CeawhulRNPBIWWFJL7487-21-21 03:06:000.1[facility]annCHE[facility] WSXEA2229-67-86 10:56:0093[facility]annCHE[facility] CDQBP2199-25-29 10:56:0026[facility]annCHE[facility] JUWLE7419-10-05 10:56:007.85[facility]annCHEM VPPKK2455-30-07 10:56:46068 [facility]annCHE[facility] WIAIH3842-22-73 10:56:003.7[facility]annCHEM PANEL 2019-08-20 10:56:45210Vqgedzzy HermannCHEM GCVHM1036-99-19 10:56:0025[facility]annCHEM TRZWV0303-67-35 10:56:009.2[facility]annCHEM HTJUU7241-81-93 10:56:007[facility]annCHEM PHFLH9018-91-39 10:56:0014.7[facility] MQALQMIDKC4030-19-10 10:56:008.6[facility] ZgsqsntGCHCNMQHCA6139-21-02 10:56:00 3.37[facility] LofacdjNOVZDOBOUE2718-69-08 10:56:0010.2[facility]annHEMATOLOGY 2019-08-20 10:56:0029.9[facility] MomqlobFRALYUHAUD9513-04-13 10:56:0088.7[facility] ZyfftdrFTYVORSXOT5301-37-75 10:56:00 Test Item Value Reference Range Interpretation Comments MCH (test code = MCH) 30.1 pg 27.0-31.0 [facility] CzdwwkpFRUJXCPCQW1832-77-12 10:56:0033.9[facility] HermannHEMATOLOGY 2019-08-20 10:56:0013.7[facility] FpvopuiUHBQIQQNFL8635-52-68 10:56:46825Frlyftke DqfackkLOTKAUKOFI8659-70-03 10:56:006.7[facility] FgkwxcrTMHEOBRFKD9794-37-63 10:56:0079.5[facility] NamhypvBWVUQWYQME3202-69-79 10:56:0012.8[facility] [place] CDDFWEUKSM7166-92-13 10:56:006.3[facility] GtqgdarQYPQOZZDUE6824-74-59 10:56:000.6 [facility] HiqnbuiYPGZBGNYDW4239-38-32 10:56:000.8[facility]annHEMATOLOGY 2019-08-20 10:56:006.8[facility] YhzwxclXUWYVRKBZW9794-93-37 10:56:001.1[facility] KugqublUWTBHKEUIB7199-23-79 10:56:000.5[facility] MfjsttkHSASXNVXQJ3005-44-70 10:56:000.1[facility]annCHEM UKVFR3374-14-64 10:56:0093[facility]annCHEM EOYBF5116-10-47 10:56:0026[facility]annCHEM WKBSC7117-19-17 10:56:007.85 [facility]annCHEM WIVRZ1454-94-07 10:56:18184Fzhpirsl HermannCHEM PANEL 2019-08-20 10:56:003.7[facility]annCHEM CQCNN6805-93-60 10:56:29478Dqreilpw HermannCHEM NXBSF4582-18-12 10:56:0025[facility]annCHEM JWGEH6842-09-91 10:56:009.2[facility]annCHEM MPRCR9578-56-99 10:56:007[facility]annCHEM QTMBV8074-20-99 10:56:0014.7[facility] FntlmmtZPTQGPPVDP5275-86-60 10:56:008.6 [facility] WnmqffkJRAPKNHKUU4561-71-14 10:56:003.37[facility]annHEMATOLOGY 2019-08-20 10:56:0010.2[facility] BqyerinIMBGRJZFQN8284-32-62 10:56:0029.9[facility] RhpdczuWHIFQYNDBR7292-74-42 10:56:0088.7[facility] YjzvtjlZMVZVUAWLV0074-96-61 10:56:00 Test Item Value Reference Range Interpretation Comments MCH (test code = MCH) 30.1 pg 27.0-31.0 [facility] YuszspuJJHERKEZRU4212-25-24 10:56:0033.9[facility] HermannHEMATOLOGY 2019-08-20 10:56:0013.7[facility] UpurxmcDYRNFFOQSW6979-66-12 10:56:82751Ltrbzqrt QbfgakaPAPOAHHZBS9707-17-10 10:56:006.7[facility] BknwgbfZFUZYHPAYI7131-15-75 10:56:0079.5[facility] TfwhdyaFMFSOTWCMY1811-16-04 10:56:0012.8[facility] [place] NLIEPUSBPL5894-62-67 10:56:006.3[facility] FpihccmZECWYQTPHU1887-52-26 10:56:000.6 [facility] SmhoiuaNKDWTNSBLH7996-94-29 10:56:000.8[facility] HermannHEMATOLOGY 2019-08-20 10:56:006.8[facility] InmibpzFEKZDDFYAT8074-86-53 10:56:001.1[facility] AmqouolDUMMNNQTZV1451-87-11 10:56:000.5[facility] KzdvfuwHXDRDGIILM6337-30-44 10:56:000.1[facility]annCHEM KGDHM3635-69-09 10:56:0093[facility]annCHEM CHMWP4679-19-78 10:56:0026[facility]annCHEM NTAMR6764-29-07 10:56:007.85 [facility]annCHEM YFUOD2370-62-07 10:56:07923Hejdvnre HermannCHEM PANEL 2019-08-20 10:56:003.7[facility] HermannCHEM GOVMG8993-61-60 10:56:69471Mgincxem HermannCHEM IPZUE8974-66-28 10:56:0025[facility]annCHEM JHAWU2698-42-50 10:56:009.2[facility] HermannCHEM GFEIS0431-88-65 10:56:007[facility]annCHEM SUCJW8688-20-70 10:56:0014.7[facility] QvfmkyxXYWKUSEYEC4824-33-74 10:56:008.6 [facility] RdntbfaCGIVCWNNNK9538-21-58 10:56:003.37[facility] HermannHEMATOLOGY 2019-08-20 10:56:0010.2[facility] ZrueywkWIYOWRJDVR1668-78-01 10:56:0029.9[facility] YugxadlCXARUCMAXD9189-87-92 10:56:0088.7[facility] ViadlpgLCFGSBCSVP9344-05-39 10:56:00 Test Item Value Reference Range Interpretation Comments MCH (test code = MCH) 30.1 pg 27.0-31.0 [facility] LxzgthpNMFGYHULYJ2525-43-90 10:56:0033.9[facility] HermannHEMATOLOGY 2019-08-20 10:56:0013.7[facility] VmterwaHPBKJUNBEB3233-89-98 10:56:95204Oshsxrse IdqqdncWFGYAFTZGI2734-69-78 10:56:006.7[facility] LuztehjBMKWUSKUZS2904-93-10 10:56:0079.5[facility] LloflrtPUSDTXDAUI4069-72-39 10:56:0012.8[facility] [place] [place] MNGRXVERRB2118-47-79 10:56:006.3[facility] BevkqccIZKUWJETZU9621-25-79 10:56:000.6 [facility] WkttsacYBYBMWWPGC1847-16-84 10:56:000.8[facility]annHEMATOLOGY 2019-08-20 10:56:006.8[facility] EtkragiGNOWBDHGLO4221-78-94 10:56:001.1[facility] HeruretPNXPBRHXFB2668-04-69 10:56:000.5[facility] OuizvrqISMGACXEBV9616-51-02 10:56:000.1[facility] HermannCHEM JVSLE2932-62-02 10:14:36265Efyatmpo HermannCHEM TJQNM9771-38-13 10:14:0018[facility]annCHEM AIOWW4039-56-80 10:14:007.09 [facility]annCHEM LZUVG5392-34-88 10:14:70123Xhekiohu HermannCHEM PANEL 2019-08-19 10:14:003.6[facility] HermannCHEM LHDIS5087-86-21 10:14:85234Wkhdvahe HermannCHEM CDUPF3965-32-95 10:14:0028[facility]annCHEM STIRQ9514-73-69 10:14:0013.6[facility]annCHEM ANTJA9036-10-75 10:14:009.5[facility]annCHEM NSJBI7857-85-65 10:14:008[facility] QexfpanRCYRZWPLEY2005-17-46 10:14:007.7 [facility] ExpfyerJQMCRDFKHO5580-07-83 10:14:003.61[facility]annHEMATOLOGY 2019-08-19 10:14:0010.8[facility] HsuyadcCXRKYWAAXX8157-27-25 10:14:0031.7[facility] TopsddpAGSGGINKKC8105-80-88 10:14:0087.7[facility] SrsxxmsGCZOTZLMAV1067-75-79 10:14:00 Test Item Value Reference Range Interpretation Comments MCH (test code = MCH) 30.0 pg 27.0-31.0 [facility] RokjqjkJMWCDHGJLF5316-58-75 10:14:0034.2[facility]annHEMATOLOGY 2019-08-19 10:14:0014.0[facility] PhjtnsdGWWRLPAZGL9757-88-29 10:14:51071Ggivrkdy UzvlaelHFNTTNQVUC1147-76-35 10:14:007.0[facility] JujsmjwIIQLJJIBOB3162-43-19 10:14:0075.0[facility] VaahyspUERIYVMSJN5155-49-77 10:14:0015.4[facility] OOXVBOTHEE9098-52-82 10:14:007.1[facility] AmnymdtDHDXDWMBAM4045-42-63 10:14:001.4 [facility] ZmdqtvlBYSVOYOAGH2379-51-67 10:14:001.1[facility]annHEMATOLOGY 2019-08-19 10:14:005.8[facility] HzqdioeORSMJWMGGR3248-47-50 10:14:001.2[facility] DlubumbTJPGVGJORG7860-30-31 10:14:000.5[facility] DissnqmWCVZYZETGB0739-35-76 10:14:000.1[facility] LtqffdwZMPPICWUKP0987-64-61 10:14:000.1[facility] HermannCHEM FWULI7337-99-30 10:14:00362Xwbgxbry HermannCHEM OYCRR1772-51-80 10:14:0018 [facility]annCHEM LMDBX6699-08-38 10:14:007.09[facility] HermannCHEM PANEL 2019-08-19 10:14:04403Gtkpwucc HermannCHEM EERMX6801-40-90 10:14:003.6[facility] HermannCHEM TIOMG9145-52-76 10:14:03800Vdtpvlcu HermannCHEM ESTKC1870-73-44 10:14:0028[facility]annCHEM ITIKM5264-38-58 10:14:0013.6[facility]annCHEM FONWJ0455-35-01 10:14:009.5[facility]annCHEM ZWHLP3222-85-94 10:14:008 [facility] LitykavVOBWWTLSYM8893-01-76 10:14:007.7[facility] HermannHEMATOLOGY 2019-08-19 10:14:003.61[facility] XtfzzikDBMZMQKDFY9022-52-84 10:14:0010.8[facility] KbqgdgvEEQKPGURUY2117-08-51 10:14:0031.7[facility] HrawnugWDTNXGWXEJ4545-22-21 10:14:0087.7[facility] GnrqgsqKIWLCAEEAF2001-11-93 10:14:00 Test Item Value Reference Range Interpretation Comments MCH (test code = MCH) 30.0 pg 27.0-31.0 [facility] BtufiazAYACQBWPND2033-28-21 10:14:0034.2[facility] HermannHEMATOLOGY 2019-08-19 10:14:0014.0[facility] BpkyamkCQIKHBHIVK7412-64-96 10:14:59498Obmtyedo EycnljmJXEGWZQGQO9571-00-92 10:14:007.0[facility] XmjjwwiWLBJXKQBOZ2887-44-91 10:14:0075.0[facility] OzwynigQPADHJIXHM5372-25-98 10:14:0015.4[facility] AVPSAWUGBF8588-03-29 10:14:007.1[facility] NwqwneaTSLHKKGISW4481-93-47 10:14:001.4 [facility] WnlqnzvTLBCAWYWOW6802-88-36 10:14:001.1[facility] HermannHEMATOLOGY 2019-08-19 10:14:005.8[facility] PohoxduBYQVURLBSB4277-99-91 10:14:001.2[facility] QtndqhkALANQALIZW0175-93-59 10:14:000.5[facility] UukgnbbTYQOKJNOGK0610-51-29 10:14:000.1[facility] ZfnyterZUHXZQPWXW0158-97-28 10:14:000.1[facility] HermannCHEM XDRBI4602-43-80 10:14:34523Quyfszbu HermannCHEM WBHLL7988-90-06 10:14:0018 [facility]annCHEM FPATS5912-97-52 10:14:007.09[facility] HermannCHEM PANEL 2019-08-19 10:14:78622Zuozswfg HermannCHEM EDDZL9065-96-38 10:14:003.6[facility]annCHEM YYVKT2154-10-19 10:14:53055Hszdyhfx HermannCHEM PBESG2476-95-77 10:14:0028[facility]annCHEM EQXUY4628-79-79 10:14:0013.6[facility] HermannCHEM BVBVD7195-76-83 10:14:009.5[facility] HermannCHEM UBKIF9466-34-34 10:14:008 [facility] QsbbfcwWSYPYANOMP9687-94-70 10:14:007.7[facility]annHEMATOLOGY 2019-08-19 10:14:003.61[facility] OangizvKPXHFFENDU0207-59-59 10:14:0010.8[facility] EwmytwiNSFTKXMQSD0077-72-26 10:14:0031.7[facility] EiicpcoKDBZQHRYAC8876-24-43 10:14:0087.7[facility] SxloxxoCNQXZEHYXJ4895-96-56 10:14:00 Test Item Value Reference Range Interpretation Comments MCH (test code = MCH) 30.0 pg 27.0-31.0 [facility] UbiunfkGSAIYOZMUM6717-00-54 10:14:0034.2[facility] HermannHEMATOLOGY 2019-08-19 10:14:0014.0[facility] RylnrxoPAHZQVGQSP3961-10-42 10:14:15246Fiauralk ImrvrgxORZGKRNCXK4672-98-48 10:14:007.0[facility] CyjzcllTXUVOITEMK9596-41-82 10:14:0075.0[facility] NponzpzWWOMGFFIKB0530-42-75 10:14:0015.4[facility] PHLQKWLSYN8430-60-72 10:14:007.1[facility] KnmvpghUBSLSEZCRO4623-07-27 10:14:001.4 [facility] GwpokpaQYUNISJKHE0234-65-70 10:14:001.1[facility] HermannHEMATOLOGY 2019-08-19 10:14:005.8[facility] DzekdlxPZUMVDYGOF4944-42-11 10:14:001.2[facility] UmwxzrnPEOIRTURUX3360-51-82 10:14:000.5[facility] DttobzwQEAJDXVSNL5374-66-54 10:14:000.1[facility] PttycjaMOHAFZKRZR6117-07-31 10:14:000.1[facility] HermannCHEM HGOJM8943-21-76 10:24:24989Fhrjmoby HermannCHEM XMMAP5018-78-01 10:24:0034 [facility]annCHEM DAODT4811-46-06 10:24:0011.00[facility] HermannCHEM PANEL 2019-08-18 10:24:25270Yxvihiyf HermannCHEM RLTNG5606-89-57 10:24:003.6[facility] HermannCHEM MJWVK0407-75-41 10:24:18647Rjazeeps HermannCHEM JTMXD0619-05-23 10:24:0028[facility] HermannCHEM XGDIL5712-53-46 10:24:0011.6[facility] HermannCHEM XOWYA0714-16-52 10:24:009.0[facility] HermannCHEM JSAVD3799-63-91 10:24:005 [facility] AvrxvmcFMLVTDYSYN2884-97-16 10:24:006.9[facility] HermannHEMATOLOGY 2019-08-18 10:24:003.13[facility] MvlgvolIIXKMMIMTY8614-42-62 10:24:009.3[facility] YkkqljkECIQEYTKWN8845-01-20 10:24:0027.4[facility] KnailegJZDUZWQPOT0643-83-65 10:24:0087.7[facility] IcicwvhAGZAXZWSOF0985-58-53 10:24:00 Test Item Value Reference Range Interpretation Comments MCH (test code = MCH) 29.6 pg 27.0-31.0 [facility] RknjtxlMNARWHIAZX7541-06-73 10:24:0033.8[facility] HermannHEMATOLOGY 2019-08-18 10:24:0014.0[facility] XmwwbgfZWKSOFKHEV1630-97-49 10:24:52069Ivatgvvq PvdkdkxOLFKYAVSKV5115-59-29 10:24:006.9[facility] EyfygbyNGCWZACKXV1224-15-30 10:24:0078.2[facility] YjzowhzBKDNKDFOSD1208-08-57 10:24:0012.2[facility] [place] UXOZULHMDL2397-25-80 10:24:006.6[facility] PwycomaBAZXWKKKHV3336-48-08 10:24:002.4 [facility] BwnoabwIFERSDJHXA7143-51-43 10:24:000.6[facility] HermannHEMATOLOGY 2019-08-18 10:24:005.4[facility] QevvfptKFQTPGFYFB0179-05-11 10:24:000.8[facility] XemtfurOBHNGNTSCX0904-60-24 10:24:000.5[facility] VhmhjliTJGZLFEMSY7674-72-85 10:24:000.2[facility] HermannCHEM GGLSM1746-59-27 10:24:72077Jcacsoss HermannCHEM XSDTF6967-47-04 10:24:0034[facility] HermannCHEM JTCSW7674-78-94 10:24:0011.00 [facility] HermannCHEM GFWRO2680-07-53 10:24:28996Ftartaet HermannCHEM PANEL 2019-08-18 10:24:003.6[facility] HermannCHEM ULYJV7751-97-75 10:24:00222Mjarlglq HermannCHEM ZBZYM3811-10-38 10:24:0028[facility]annCHEM LKVVX2812-76-59 10:24:0011.6[facility] HermannCHEM BYUXW9179-21-89 10:24:009.0[facility] HermannCHEM VIXTY3824-01-61 10:24:005[facility] JzcmvkaSPNCUHNTGJ5152-87-58 10:24:006.9 [facility] RebsqsrSXRFEGUKVP9797-64-46 10:24:003.13[facility]annHEMATOLOGY 2019-08-18 10:24:009.3[facility] MibjvrbUPRBWPLHDD0702-59-23 10:24:0027.4[facility] QwprdwyKWHDNUJNUT1015-59-79 10:24:0087.7[facility] VjkaoziCHZNHQYQUN7997-16-58 10:24:00 Test Item Value Reference Range Interpretation Comments MCH (test code = MCH) 29.6 pg 27.0-31.0 [facility] NxnhpjnMHTNGHYLBQ6376-72-41 10:24:0033.8[facility] HermannHEMATOLOGY 2019-08-18 10:24:0014.0[facility] LbnrungOGZIJJWWSY0631-11-28 10:24:56384Foijsabp GcevafrXRBGGVNYKM0285-51-91 10:24:006.9[facility] BwrljhyVBTIULNWKS5062-45-70 10:24:0078.2[facility] NtuwaitGHEIJNRDNU5375-66-33 10:24:0012.2[facility] WVTESCSWIQ3042-13-04 10:24:006.6[facility] RywouzaTQSGKYDOIM6432-32-00 10:24:002.4 [facility] YcsalcxUKSGLHMWFC1145-16-48 10:24:000.6[facility] HermannHEMATOLOGY 2019-08-18 10:24:005.4[facility] TncpscoQCKSSAFAUH2579-21-90 10:24:000.8[facility] RdtawyaFTZPPDIURQ7397-53-96 10:24:000.5[facility] DzalqbqCUPRHOYROA6016-91-99 10:24:000.2[facility] HermannCHEM JROWM4905-70-44 10:24:88876Uovcdfdv HermannCHEM KEBTW5020-49-08 10:24:0034[facility] HermannCHEM LBCYQ9435-39-44 10:24:0011.00 [facility]annCHEM KUZAU4098-70-80 10:24:71296Zzvvbmdv HermannCHEM PANEL 2019-08-18 10:24:003.6[facility] HermannCHEM WXVIV7627-60-83 10:24:33345Igtfxqem HermannCHEM ITBHW2637-73-65 10:24:0028[facility] HermannCHEM BISLA7959-57-98 10:24:0011.6[facility] HermannCHEM VGKVO2606-97-57 10:24:009.0[facility] HermannCHEM QQSOU1606-78-03 10:24:005[facility] GkikxsfVGYLJFFHXG1504-46-38 10:24:006.9 [facility] KmtukxyTJTARLOARH1682-57-87 10:24:003.13[facility] HermannHEMATOLOGY 2019-08-18 10:24:009.3[facility] CcyhvyuBYYGZRHNUK9778-88-11 10:24:0027.4[facility] MhnemwzAEILRBKRWN8668-02-13 10:24:0087.7[facility] LqsvbylYSYGJNUIHP6894-35-01 10:24:00 Test Item Value Reference Range Interpretation Comments MCH (test code = MCH) 29.6 pg 27.0-31.0 [facility] LjpuiahMLUWVHXFAL6926-48-60 10:24:0033.8[facility] HermannHEMATOLOGY 2019-08-18 10:24:0014.0[facility] CccvnxrALDRQGOHVI7496-80-13 10:24:15061Bfeygogg BakdkefMRLHXBEYMO8912-79-13 10:24:006.9[facility] DznweafDSCAMYPWQE8840-90-53 10:24:0078.2[facility] RyubxolBSTYQWYEYP7840-43-34 10:24:0012.2[facility] [place] QIDPQIOBBZ3438-57-57 10:24:006.6[facility] UvuxwyjXTYBTTPUAH2015-77-25 10:24:002.4 [facility] RwagkkoGDOAVHIQAV2804-52-91 10:24:000.6[facility] HermannHEMATOLOGY 2019-08-18 10:24:005.4[facility] ExdzpxrIWAOOANVHH6641-32-57 10:24:000.8[facility] LtjposxZQIQHOBKMI0219-06-47 10:24:000.5[facility] DiuskviTNTSIEPWXG3123-74-82 10:24:000.2[facility] EvaynxwLAUKCUDRSN8316-93-87 14:31:00Negative *NA*(08/17/19 8:31 AM)[facility] EnlyonyMJKGKVNRHO0368-65-47 14:31:00Negative *NA*(08/17/19 8:31 AM)[facility] AvpitpeHTWVAZLUYN7055-84-89 14:31:00Negative *NA*(08/17/19 8:31 AM) [facility] RkdjjfxUFTNIDKPPA0999-01-48 19:35:00 Test Item Value Reference Range Interpretation Comments PT (test code = PT) 12.2 s 12.0-14.7 [facility] JiwpcqqHJJECVLCOA1444-19-25 19:35:00 Test Item Value Reference Range Interpretation Comments INR (test code = INR) 0.92 1 0.85-1.17 [facility] VxfuvqmYLNIQSDTUB0253-39-75 19:35:00 Test Item Value Reference Range Interpretation Comments PTT (test code = PTT) 37.1 s 22.9-35.8 [facility]brdHWUOCMJDGS5624-07-90 19:35:00 Test Item Value Reference Range Interpretation Comments PT (test code = PT) 12.2 s 12.0-14.7 [facility] HospitalOwofyirYFETHNKREI1437-33-86 19:35:00 Test Item Value Reference Range Interpretation Comments INR (test code = INR) 0.92 1 0.85-1.17 [facility] HospitalImvyobxOZNSSPAQFC6379-38-82 19:35:00 Test Item Value Reference Range Interpretation Comments PTT (test code = PTT) 37.1 s 22.9-35.8 [facility] HospitalHemhprmDLTXDSOQZF3882-79-66 19:35:00 Test Item Value Reference Range Interpretation Comments PT (test code = PT) 12.2 s 12.0-14.7 [facility] HospitalHjkmxbuFBJQTMVXEM7666-87-71 19:35:00 Test Item Value Reference Range Interpretation Comments INR (test code = INR) 0.92 1 0.85-1.17 [facility] HospitalBqxtjegSWGCPOXXLJ6983-41-13 19:35:00 Test Item Value Reference Range Interpretation Comments PTT (test code = PTT) 37.1 s 22.9-35.8 [facility] CHEST 2 JN6299-72-70 19:34:12 Mild cardiomegaly. * * * * [...] heartis mildly enlarged. No acute bony abnormality.IMPRESSIONMild cardiomegaly.[facility] XKOWX5747-92-66 10:20:003[facility]annCHEM TLYVR2605-71-63 10:20:0096[facility]annCHEM TPLXX5248-94-81 10:20:0068[facility]annCHEM TGKGW8400-88-62 10:20:008.7[facility]annCHEM IGFPG2179-95-00 10:20:0016.7[facility] HermannCHEM FNHIG9608-76-67 10:20:66996Lvhwhlyw HermannCHEM ODNCF5218-77-27 10:20:0025 [facility]annCHEM JUTWL0109-86-88 10:20:003.7[facility] HermannCHEM PANEL 2019-04-07 10:20:0093[facility]annCHEM ZWNYH9269-12-11 10:20:0015.20[facility]annCHEM BKQYB6425-81-01 10:20:003[facility]annCHEM MBDZW5384-83-46 10:20:0096[facility]annCHEM LARGM9780-04-65 10:20:0068[facility]annCHEM CGJPO8128-74-06 10:20:008.7[facility]annCHEM VWGDD2611-48-94 10:20:0016.7 [facility]annCHEM QXCKU8442-14-18 10:20:85237Txuqbenu HermannCHEM PANEL 2019-04-07 10:20:0025[facility] HermannCHEM WOMJD5910-44-60 10:20:003.7[facility]annCHEM WKLHE4424-79-43 10:20:0093[facility]annCHEM WJNWM6199-47-94 10:20:0015.20[facility]annCHEM ABPSS5831-07-42 10:20:003[facility]annCHEM WVRHA0518-85-76 10:20:0096[facility]annCHEM XLLXL5154-39-25 10:20:0068 [facility]annCHEM UDSPU2654-69-40 10:20:008.7[facility] HermannCHEM PANEL 2019-04-07 10:20:0016.7[facility] HermannCHEM GRAJB9391-67-66 10:20:74622Cfkumzbx HermannCHEM RUTHA3157-11-71 10:20:0025[facility]annCHEM YUVND1647-68-72 10:20:003.7[facility]annCHEM IQAZT6846-83-93 10:20:0093[facility]annCHEM YRUBJ9785-40-78 10:20:0015.20[facility] HermannCARDIAC XKYGWQI2591-27-87 14:42:00 0.03[facility] HermannCARDIAC EDILGRF8160-69-60 14:42:000.03[facility] CARDIAC VEXUZPX0542-41-54 14:42:000.03[facility] HermannANEMIA LIATD8700-58-17 08:16:42718Kgmougky HermannCARDIAC FEHKPIW3762-69-87 08:16:000.04[facility] HermannCHEM IHMGJ5711-31-32 08:16:001.8[facility] HermannCHEM YUIZK6057-39-58 08:16:003[facility]annCHEM FHDQL2472-60-72 08:16:00 Test Item Value Reference Range Interpretation Comments A/G Ratio (test code = A/G Ratio) 0.6 1 0.7-1.6 [facility]annCHEM NUMUM0527-82-77 08:16:00 Test Item Value Reference Range Interpretation Comments B/C Ratio (test code = B/C Ratio) 4 1 6-25 [facility]annCHEM UEPDU5446-13-67 08:16:003.4[facility] HermannCHEM PANEL 2019-04-06 08:16:000.4[facility] HermannCHEM PNDIY0388-23-76 08:16:0018.3[facility] HermannCHEM SMUXZ2349-38-09 08:16:0093[facility]annCHEM TNDWD4502-17-78 08:16:0023[facility]annCHEM YTQJZ0802-62-78 08:16:008.1[facility] HermannCHEM YZZOY7716-22-90 08:16:0057[facility]annCHEM AWFKY2073-42-47 08:16:0060 [facility] HermannCHEM DRIXZ8405-93-98 08:16:33730Ppnlngxo HermannCHEM PANEL 2019-04-06 08:16:0015.90[facility] HermannCHEM AYKKP7078-43-97 08:16:004.3[facility] HermannCHEM QJIWQ3919-78-01 08:16:0021[facility] HermannCHEM JDLKY3688-53-29 08:16:0076[facility] HermannCHEM EGISP3536-75-61 08:16:0016[facility] HermannCHEM DFYFP3581-92-95 08:16:005.6[facility] HermannCHEM XMYKU2454-87-23 08:16:002.2 [facility]BcymvqcKMRMQJATLB6005-02-15 08:16:00 Test Item Value Reference Range Interpretation Comments PTT (test code = PTT) 41.5 s 22.9-35.8 [facility] HospitalHvqwndiRNRYKGJHQK8368-51-24 08:16:00 Test Item Value Reference Range Interpretation Comments PT (test code = PT) 14.4 s 12.0-14.7 [facility] HospitalGzqgiwdYXRAFQKOKW9775-34-41 08:16:00 Test Item Value Reference Range Interpretation Comments INR (test code = INR) 1.14 1 0.85-1.17 [facility] HospitalQrlwthhSZOCMDBEMU1051-25-24 08:16:0015.5[facility] HermannHEMATOLOGY 2019-04-06 08:16:61756Iyyrdget XelvixmRKXZCQBNEN3808-20-59 08:16:00 Test Item Value Reference Range Interpretation Comments MCH (test code = MCH) 28.7 pg 27.0-31.0 [facility] HospitalIuodeztUVQUSTFXHU7324-84-14 08:16:0034.2[facility] HermannHEMATOLOGY 2019-04-06 08:16:0084.1[facility] OlojnmcMGSJDRNNVT7241-32-73 08:16:0011.4[facility] BpenaohNLRGMILOTP2997-95-84 08:16:0033.2[facility] KbuhckmLECQXHWRUU9454-60-35 08:16:0010.2[facility] KxovzvpHALBIRCCKN2133-55-88 08:16:003.95[facility] [place] DIYLCBKGSH2417-75-13 08:16:008.3[facility] DjanxebEAHFXBSEDE1440-44-13 08:16:00 84.8[facility] DyqvdugKSIUHSCPBH5632-09-98 08:16:000.1[facility] HermannHEMATOLOGY 2019-04-06 08:16:000.5[facility] WjlmrbzGLZKXTMXDW0476-35-16 08:16:001.2[facility] XqvjdafHJJYVHEIBC8784-41-80 08:16:006.5[facility] FalhvhsNSRDUDTUTH3701-27-75 08:16:007.0[facility] AluwdztXNISLPCBGJ0542-78-20 08:16:000.1[facility] [place] KQUFWYAMZP8225-56-84 08:16:000.7[facility] DphjizhLXHGOMBPLP3049-11-08 08:16:000.7 [facility] XjlkmktOEQRZQGEKV9361-49-67 08:16:008.7[facility] HermannANEMIA STUDY 2019-04-06 08:16:74962Cdzvvyur HermannCARDIAC HNNMXHD0450-62-31 08:16:000.04 [facility] HermannCHEM PWYGY6073-74-52 08:16:001.8[facility] HermannCHEM PANEL 2019-04-06 08:16:003[facility] HermannCHEM PQRCL0254-41-55 08:16:00 Test Item Value Reference Range Interpretation Comments A/G Ratio (test code = A/G Ratio) 0.6 1 0.7-1.6 [facility] HermannCHEM NJVXT8770-02-44 08:16:00 Test Item Value Reference Range Interpretation Comments B/C Ratio (test code = B/C Ratio) 4 1 6-25 [facility] HermannCHEM SAGSE3729-96-65 08:16:003.4[facility] HermannCHEM PANEL 2019-04-06 08:16:000.4[facility] HermannCHEM ISPMP7357-94-03 08:16:0018.3[facility] HermannCHEM ROLVT5664-47-86 08:16:0093[facility] HermannCHEM FOXST4946-80-81 08:16:0023[facility] HermannCHEM MCLZR6883-61-99 08:16:008.1[facility] HermannCHEM FYKUJ5102-96-29 08:16:0057[facility] HermannCHEM ASCHD2001-37-10 08:16:0060 [facility] HermannCHEM YQJCD9052-01-11 08:16:84952Hogypvjc HermannCHEM PANEL 2019-04-06 08:16:0015.90[facility] HermannCHEM LFYEJ0439-76-92 08:16:004.3[facility] HermannCHEM PAFSM6465-29-65 08:16:0021[facility] HermannCHEM WVVKP7875-01-66 08:16:0076[facility] HermannCHEM QXTPN2890-93-88 08:16:0016[facility] HermannCHEM MLDZH7679-44-03 08:16:005.6[facility] HermannCHEM TJBDL1731-39-22 08:16:002.2 [facility] HospitalRqsaqiqBUAKWSSVQH0246-24-58 08:16:00 Test Item Value Reference Range Interpretation Comments PTT (test code = PTT) 41.5 s 22.9-35.8 [facility] HospitalOkfhtelTTRTWRXABJ6660-51-26 08:16:00 Test Item Value Reference Range Interpretation Comments PT (test code = PT) 14.4 s 12.0-14.7 [facility] HospitalWsxeewnSOAOCCBREH4999-83-53 08:16:00 Test Item Value Reference Range Interpretation Comments INR (test code = INR) 1.14 1 0.85-1.17 [facility] HospitalZdiydpqTEJYVPSWRZ2369-25-25 08:16:0015.5[facility] HermannHEMATOLOGY 2019-04-06 08:16:02661Efbwknmv HtqivniRNNWHUHLRS7619-80-35 08:16:00 Test Item Value Reference Range Interpretation Comments MCH (test code = MCH) 28.7 pg 27.0-31.0 [facility] HospitalHqegtpqMQXKYIUTTH5204-01-12 08:16:0034.2[facility] HermannHEMATOLOGY 2019-04-06 08:16:0084.1[facility] KfwxjycUBMVEVHMVT5384-03-02 08:16:0011.4[facility] WmccgpgYWZLWJHUIP7673-22-79 08:16:0033.2[facility] AeeipgfBHJFGNLBOM9245-95-82 08:16:0010.2[facility] LonmkuvBKTJAVXKJL1973-82-48 08:16:003.95[facility] [place] [place] JRJIVDWIJQ3994-20-88 08:16:008.3[facility] HgxjsdxNLOUSWMIYA6669-91-40 08:16:00 84.8[facility] QawikhpPAZNCZKJIC0867-53-20 08:16:000.1[facility]annHEMATOLOGY 2019-04-06 08:16:000.5[facility] HlkfncgEGALNNXBAX8591-50-32 08:16:001.2[facility] GcuigteOCHMTDRMDV2576-98-94 08:16:006.5[facility] DpsanzqKDHQDSLQKI7505-80-39 08:16:007.0[facility] TkozgfgWELGOPYXFJ7283-32-77 08:16:000.1[facility] [place] [place] ZPYNTMDCNF5588-04-94 08:16:000.7[facility] FlxlftdXUIPDGLEGL3816-29-73 08:16:000.7 [facility] OhpbrymLTPDZPSDYX0746-43-76 08:16:008.7[facility] HermannANEMIA STUDY 2019-04-06 08:16:82145Luqwkgrw HermannCARDIAC WRIEFGM6610-29-04 08:16:000.04 [facility]annCHEM ZDTVI7507-49-53 08:16:001.8[facility]annCHEM PANEL 2019-04-06 08:16:003[facility]annCHEM YHQHN9515-87-01 08:16:00 Test Item Value Reference Range Interpretation Comments A/G Ratio (test code = A/G Ratio) 0.6 1 0.7-1.6 [facility]annCHEM AZVPX6384-87-78 08:16:00 Test Item Value Reference Range Interpretation Comments B/C Ratio (test code = B/C Ratio) 4 1 6-25 [facility]annCHEM HEUWR9136-48-41 08:16:003.4[facility]annCHEM PANEL 2019-04-06 08:16:000.4[facility]annCHEM TPXFS3645-06-26 08:16:0018.3[facility] HermannCHEM NIZJY3911-09-91 08:16:0093[facility]annCHEM JHHTA6760-35-38 08:16:0023[facility]annCHEM BNYIO1895-24-69 08:16:008.1[facility]annCHEM JILIY5980-20-40 08:16:0057[facility]annCHEM STLJS4713-15-74 08:16:0060 [facility] HermannCHEM PTXAW5795-64-95 08:16:24300Wogeofeb HermannCHEM PANEL 2019-04-06 08:16:0015.90[facility] HermannCHEM HOMDA4102-40-63 08:16:004.3[facility] HermannCHEM KWLTM1612-25-67 08:16:0021[facility]annCHEM YAJIR4788-57-14 08:16:0076[facility]annCHEM EAQWD0964-07-43 08:16:0016[facility]annCHEM XQXXV2450-64-14 08:16:005.6[facility]annCHEM HMTSG6252-24-57 08:16:002.2 [facility] HospitalFtuzznuNDUBHONOWB4395-66-51 08:16:00 Test Item Value Reference Range Interpretation Comments PTT (test code = PTT) 41.5 s 22.9-35.8 [facility] HospitalUnmuufdRTQJXXFKMV0081-61-73 08:16:00 Test Item Value Reference Range Interpretation Comments PT (test code = PT) 14.4 s 12.0-14.7 [facility] HospitalRoamznkAENDMSZLOB5076-06-70 08:16:00 Test Item Value Reference Range Interpretation Comments INR (test code = INR) 1.14 1 0.85-1.17 [facility] HospitalWzvqgzhBPUMZZJQSW9936-41-35 08:16:0015.5[facility]annHEMATOLOGY 2019-04-06 08:16:47486Fhmtcjmr TwnvvbxKQGYVFGAMW5387-58-95 08:16:00 Test Item Value Reference Range Interpretation Comments MCH (test code = MCH) 28.7 pg 27.0-31.0 [facility] HospitalZeueczgJWGIVHLNSP9531-51-40 08:16:0034.2[facility]annHEMATOLOGY 2019-04-06 08:16:0084.1[facility] DohdmymVJNMHHDBNP1332-11-33 08:16:0011.4[facility] EtkqdlaKGDVLKJKEC4597-64-45 08:16:0033.2[facility] OryivfbTIMDSNRPWJ7063-85-60 08:16:0010.2[facility] KjpouszPHUZJELBXI3956-06-95 08:16:003.95[facility] [place] BLAFEFTCGC4440-83-02 08:16:008.3[facility] EqhemmeUNJKYVODGK5009-55-94 08:16:00 84.8[facility] AawecudHULXKVLWNP4526-68-57 08:16:000.1[facility]annHEMATOLOGY 2019-04-06 08:16:000.5[facility] KqemdjwDFLLGEXDIW2967-92-80 08:16:001.2[facility] GwmmociJEIZXGOYEM5782-09-88 08:16:006.5[facility] DofrnikRVHHCAPGRM4701-27-02 08:16:007.0[facility] YhbvkydLYMDUOKNEH8602-60-64 08:16:000.1[facility] [place] RHVYDJQQDO3798-71-84 08:16:000.7[facility] RgorhipJAKWPOCSGT3775-58-88 08:16:000.7 [facility] CrccntlFKROUHQGYV4776-47-46 08:16:008.7[facility] HermannCHEM PANEL 2019-04-06 04:17:000.3[facility] HermannCHEM WSVWX1172-61-92 04:17:000.3[facility] HermannCHEM CVJQZ8654-96-63 04:17:000.3[facility] HermannCARDIAC WKCYSQQ4944-57-65 02:25:000.03[facility] CilylrwLTPGZC3668-59-46 02:25:00 Test Item Value Reference Range Interpretation Comments CHD Risk (test code = CHD Risk) 3.10 1 4.00-7.30 [facility] XqrsyrnGHQOWL5593-39-57 02:25:00 Test Item Value Reference Range Interpretation Comments VLDL (test code = VLDL) 21 1 [facility] MxmikotCHSKAD4602-31-99 02:25:0058[facility] YpaqgriOICNMB5595-27-44 02:25:07539Zhlyjxop YzlyzgjARLLVI3699-65-18 02:25:93048Yppomxof HermannLIPIDS 2019-04-06 02:25:61387Ozfifhoj HermannSPECIAL ZWAFPAWQV4780-72-85 02:25:004.0 [facility]annCARDIAC DUGARJZ6695-93-06 02:25:000.03[facility] HermannLIPIDS 2019-04-06 02:25:00 Test Item Value Reference Range Interpretation Comments CHD Risk (test code = CHD Risk) 3.10 1 4.00-7.30 [facility] PobbuhoQXHYUX7754-80-98 02:25:00 Test Item Value Reference Range Interpretation Comments VLDL (test code = VLDL) 21 1 [facility] DwcelwuLFUUCX7671-31-30 02:25:0058[facility] OqjemfaDCRMUG9581-46-94 02:25:98583Oxlclwvq NlfcfxeBCQMMR6235-26-52 02:25:89396Vxmegdzq HermannLIPIDS 2019-04-06 02:25:32510Akvbnjcg HermannSPECIAL QRNLYYUQV0032-76-97 02:25:004.0 [facility]annCARDIAC UPNQOMS4094-36-14 02:25:000.03[facility] HermannLIPIDS 2019-04-06 02:25:00 Test Item Value Reference Range Interpretation Comments CHD Risk (test code = CHD Risk) 3.10 1 4.00-7.30 [facility] LdumkzzQSBRLS9609-58-86 02:25:00 Test Item Value Reference Range Interpretation Comments VLDL (test code = VLDL) 21 1 [facility] GqcizweIAEDIL6651-12-26 02:25:0058[facility] JjlobskSVQFLI0594-04-86 02:25:88041Gvvteaqt JemqlpqJGKARO3503-77-00 02:25:67096Tkeituak HermannLIPIDS 2019-04-06 02:25:50573Wavoqtlk HermannSPECIAL SBDXVFJMP7891-47-18 02:25:004.0 [facility]annCHEM OEGSG9260-88-58 12:41:006.1[facility] HermannELECTROLYTES 2018-07-23 12:41:0014.8[facility] DacpmxdAAFJUAVFXMLR9324-56-60 12:41:004[facility] EsoajhzCZNOELHLSDIS5874-63-90 12:41:0027[facility] TnpvhldFBCXPKCPPRFD5098-33-77 12:41:007.9[facility] AclfedwPPDGFBFLXHMR7258-10-93 12:41:0012.90[facility] [place] POLWQOKBFNFP6855-46-48 12:41:0060[facility] LdsbhvtTDOCWPXPMAMR3802-77-65 12:41:00 139[facility] BmgwtgvTKEPXFRQFAEU3420-83-98 12:41:0093[facility] HermannELECTROLYTES 2018-07-23 12:41:38596Zmgqxgyx BgtudkmQZMAPEJOBMTM1457-42-37 12:41:004.8[facility] DlxgdvgPFEBRALVDS0324-98-65 12:41:0035.3[facility] EkqeuzvOHRVVFQKQF4509-58-92 12:41:007.8[facility] WqdyilmYUXBZMHBLK9014-47-55 12:41:0022.0[facility] [place] JTODWDAJEY5647-50-66 12:41:002.68[facility] SfedrnsAZYFBLWOVP3657-23-62 12:41:00 4.4[facility] JjgqlpnGIDPMNXGPX6108-92-16 12:41:0014.5[facility]annHEMATOLOGY 2018-07-23 12:41:0082.1[facility] LfdiidnORSIYGDCPP0571-73-87 12:41:00 Test Item Value Reference Range Interpretation Comments MCH (test code = MCH) 29.0 pg 27.0-31.0 [facility] UbloxndDMXPCPBGWK3993-15-89 12:41:79955Rhtqhwmi HermannHEMATOLOGY 2018-07-23 12:41:007.3[facility] ZqgnhsuFIDZXHFFZL6846-95-71 12:41:000.4[facility] BviybrdKELRNEUZII7273-90-70 12:41:000.2[facility] SnnoksaIURNPVYFWO9837-80-53 12:41:009.7[facility] AlkyyujYAGSAYOMKJ0089-80-00 12:41:003.7[facility] [place] TUAINRHIXP0441-02-76 12:41:000.8[facility] RhrtkswPXURCFGQAK1769-26-12 12:41:003.0 [facility] JfoqqakOXRGBLHOCZ6724-89-24 12:41:000.8[facility]annHEMATOLOGY 2018-07-23 12:41:0067.6[facility] NlpyypsBBBBWUTAFB6174-61-74 12:41:0018.2[facility] HermannCHEM RQSKG5091-22-83 12:41:006.1[facility] XneeynwNUHDFYMMGCWI6999-34-80 12:41:0014.8[facility] ZmlwsihCLYLJENSFUJG6314-14-73 12:41:004[facility] [place] WCQBSZWQIJWA1342-84-44 12:41:0027[facility] JwzbopaTGUMBWXWXLAA5276-50-27 12:41:00 7.9[facility] CyfuqpqLKHOICYZDNKU2912-65-64 12:41:0012.90[facility] [place] MUSUKIQMTUIU2795-36-53 12:41:0060[facility] LftdslvBVISNTQCNAAJ7206-69-71 12:41:00 139[facility] GgzcnfmFBLTEJXYSLVC4986-17-08 12:41:0093[facility] HermannELECTROLYTES 2018-07-23 12:41:54162Gsosjeso EybxvprRIJALEDVHEKZ9765-99-22 12:41:004.8[facility] FalcfmnMTCMXTNXVG6095-92-39 12:41:0035.3[facility] LrbqmaqEBHFLDBYLP0692-09-12 12:41:007.8[facility] SdvhhuhNTFACXIVAL8337-06-03 12:41:0022.0[facility] [place] VHMDCJNPGH2091-50-79 12:41:002.68[facility] JxwvhudWUWJLQGSHE9587-18-78 12:41:00 4.4[facility] LeomjwbBBLLAEMKLT4527-61-64 12:41:0014.5[facility]annHEMATOLOGY 2018-07-23 12:41:0082.1[facility] DidjrojVTURSEUPXE7798-99-88 12:41:00 Test Item Value Reference Range Interpretation Comments MCH (test code = MCH) 29.0 pg 27.0-31.0 [facility] CpqjbcmJJPBKVGQMZ6919-17-35 12:41:29875[place]bs HermannHEMATOLOGY 2018-07-23 12:41:007.3[facility] JtntsveCWCAQRPNLW5881-69-66 12:41:000.4[facility] VgrfedaLRQYSYHAIH2686-70-65 12:41:000.2[facility] OjoxopnOGKCHNGHSH2990-03-68 12:41:009.7[facility] EwwpjngQEITNIIRAM6589-14-16 12:41:003.7[facility] SMWKGLJKCK8965-86-36 12:41:000.8[facility] WkkzwmcDDIOGEODHO4823-17-23 12:41:003.0 [facility] KfbnhjaTVENRFBBSX7066-77-38 12:41:000.8[facility] HermannHEMATOLOGY 2018-07-23 12:41:0067.6[facility] YbrjzbxTEKQLMHWQA9493-15-03 12:41:0018.2[facility] HermannCHEM DFBDN8312-27-97 12:41:006.1[facility] GyhxierSHZUAFLOYVFC1069-67-24 12:41:0014.8[facility] XvgllhoQKJTHGPZYLUL9115-26-73 12:41:004[facility] [place] NGWNMABAPIYW2038-12-09 12:41:0027[facility] StvmqguQJELTVTOAYXP8056-65-74 12:41:00 7.9[facility] QxidyilJOGJTUWFNNLE7011-51-45 12:41:0012.90[facility] KAFGYFGXNSXX7657-39-72 12:41:0060[facility] JtwebytHAXXBDENTZDS4487-21-01 12:41:00 139[facility] KdytynjJPAMRNIEWUBM7339-13-29 12:41:0093[facility] HermannELECTROLYTES 2018-07-23 12:41:89679Fjrhutnn JkpawxiKZMXMNZCOTOI4577-46-36 12:41:004.8[facility] HtixumbXFUYADFRQH0203-27-70 12:41:0035.3[facility] XqovsqeGBHCLPIITL3768-88-36 12:41:007.8[facility] ZwmablxUJOUWWIAND8562-42-95 12:41:0022.0[facility] QOWWEVYPPV3477-16-00 12:41:002.68[facility] MfumkrnSOFNBZYWOK4404-80-28 12:41:00 4.4[facility] KpyuleaNMKPWENJCL8192-11-30 12:41:0014.5[facility]annHEMATOLOGY 2018-07-23 12:41:0082.1[facility] JcguspwSFSXEHTPAH8680-98-80 12:41:00 Test Item Value Reference Range Interpretation Comments MCH (test code = MCH) 29.0 pg 27.0-31.0 [facility] DifheleMBTYYKEQST7889-66-88 12:41:27652Gwxabwcm HermannHEMATOLOGY 2018-07-23 12:41:007.3[facility] PazqijfGBAGEHPAPI3405-76-11 12:41:000.4[facility] TjnzcrgGQUGUGQBNK7473-78-76 12:41:000.2[facility] ZtwsovdSAOHKKBTZA0034-16-04 12:41:009.7[facility] VaycbwjNIVIGYCDZN3595-84-39 12:41:003.7[facility] [place] WCENPDFIWY2335-30-96 12:41:000.8[facility] PkoghdwVLYIAZNOCO5600-57-72 12:41:003.0 [facility] LqpqiwtTUKUHYAUYO8072-44-26 12:41:000.8[facility] HermannHEMATOLOGY 2018-07-23 12:41:0067.6[facility] SpkdkslYROXEBNRUO5980-94-59 12:41:0018.2[facility] HermannCHEM GEZMG6392-16-77 11:17:002.5[facility]annCHEM VRTCE6886-65-23 11:17:008.3[facility] BflsnrmPBRTCDYOQTAP6398-77-85 11:17:0022[facility] PRMUGYNMIUSV6864-26-14 11:17:007.5[facility] PcnczarBMXUQAAANFEN4461-04-65 11:17:0098[facility] IkifxcmMZSMLNXXQZKX1033-32-09 11:17:002[facility] [place] TBKJCPIEQIRW1554-99-86 11:17:0019.20[facility] QfdnzdjZQMZUKJZDWUB9957-61-88 11:17:0097[facility] AcomfkzHCAQVRJYZXFE3479-89-33 11:17:004.7[facility] NQILRLIWKEMP7209-82-97 11:17:57330Owipxymv WhgoalvPFAQBSMHRLIA0968-16-04 11:17:0082[facility] UwzcujiMIJJUSRBOWZO1566-04-91 11:17:0019.7[facility] GJANTDKNZL0559-15-91 11:17:004.9[facility] CfbrhtzKBVOFVWGWY1452-42-04 11:17:00 2.85[facility] DacerfxORJLIGOHIM3225-52-03 11:17:0082.3[facility] HermannHEMATOLOGY 2018-07-22 11:17:00 Test Item Value Reference Range Interpretation Comments MCH (test code = MCH) 28.8 pg 27.0-31.0 [facility] FahqefaEJYVJYNZCW8077-14-51 11:17:008.2[facility] HermannHEMATOLOGY 2018-07-22 11:17:0023.4[facility] TqkirupMRLESIHDSJ5338-60-23 11:17:0015.0[facility] MbonaxqNRLGSCBRZI7845-91-46 11:17:0035.0[facility] AlrupfyPTEXEWXNHR5357-52-71 11:17:007.4[facility] XjpohxoJISTTBUXVO2810-14-98 11:17:06045Qqqexpac [place] UFFHDZQFIS3290-82-70 11:17:0020.3[facility] KjddjiaHJJTRXUPMH0608-64-65 11:17:00 1.0[facility] DibakwrGMURHZKZDP9262-76-33 11:17:0067.1[facility] HermannHEMATOLOGY 2018-07-22 11:17:003.3[facility] XmfqrdnVQMGORVHUO1786-29-19 11:17:003.1[facility] HpexsiqLXOAEJASVQ6150-79-23 11:17:008.5[facility] AatahfvVQDXMPDZJZ5507-03-48 11:17:000.4[facility] YozbmxeMVWXPSFEZX4572-73-83 11:17:001.0[facility] [place] SMRQSCTEKQ7376-82-90 11:17:000.1[facility] OkbbxxyLBOMFMMLJZ4142-16-17 11:17:00 Negative *NA*(07/22/18 6:17 AM)[facility]annCHEM IJEXC0499-55-28 11:17:002.5 [facility]annCHEM IJMTW7687-08-21 11:17:008.3[facility] HermannELECTROLYTES 2018-07-22 11:17:0022[facility] EjitbnaAAGDGLHKONKU2040-38-64 11:17:007.5[facility] SkqyoyjYJVSCWAUMBIO4004-20-28 11:17:0098[facility] PujekwtLWSSLFFZRFCN9199-06-73 11:17:002[facility] DxctwvtQKJUUGKHHILB4960-41-26 11:17:0019.20[facility] [place] SJZRVTORKLLV5521-98-18 11:17:0097[facility] RitxormXLSSIXNCAHPN5444-61-82 11:17:00 4.7[facility] JzqhzjxFSPEWRSHIBEC1000-09-39 11:17:18044Uloeyzqi [place] GNHBULYDETJN7354-11-20 11:17:0082[facility] YfwqeqbKCIHKAUAEUEC5704-98-40 11:17:00 19.7[facility] AfzutnzYEDJVBKMUK3045-32-63 11:17:004.9[facility] HermannHEMATOLOGY 2018-07-22 11:17:002.85[facility] AtoptxcIUSJAGMBHX1352-61-20 11:17:0082.3[facility] SwxfjonNJYDDQDILX8861-08-86 11:17:00 Test Item Value Reference Range Interpretation Comments MCH (test code = MCH) 28.8 pg 27.0-31.0 [facility] IdiwehmWULIDCFCQH9604-65-33 11:17:008.2[facility] HermannHEMATOLOGY 2018-07-22 11:17:0023.4[facility] QcmapnpJOGMCXATSF0887-44-69 11:17:0015.0[facility] KkvqrbkDUZTDUJPGT7383-37-75 11:17:0035.0[facility] EsefnquKJTYDIBEXQ5402-42-24 11:17:007.4[facility] AzbywemJDAFRGEDUL3108-65-80 11:17:39391Twqtdhls [place] ORZQXIBIFD5324-70-78 11:17:0020.3[facility] OhgkagySUFLRCBDCZ0575-37-36 11:17:00 1.0[facility] UopiripXHDDIBPLDP2950-34-31 11:17:0067.1[facility] HermannHEMATOLOGY 2018-07-22 11:17:003.3[facility] QwxehtoJDCLBRVDIB5405-41-45 11:17:003.1[facility] RyhajhqEOFSJTNYHO6366-32-35 11:17:008.5[facility] TkkgeowOFOSTHCDAS7461-40-86 11:17:000.4[facility] TmxzlooOTBZSQITVY5655-18-73 11:17:001.0[facility] [place] RVDEMCBAQW5568-96-90 11:17:000.1[facility] ZaihmfbQDTQDQUEPM3796-60-14 11:17:00 Negative *NA*(07/22/18 6:17 AM)[facility]annCHEM SSTNX7579-05-29 11:17:002.5 [facility]annCHEM RNJIS7500-88-51 11:17:008.3[facility] HermannELECTROLYTES 2018-07-22 11:17:0022[facility] AjnlsifBXOVXJYEXMRC1827-24-57 11:17:007.5[facility] KkewtxeRQDEFBXYKIDL8322-63-95 11:17:0098[facility] DvvykmvNCBCWCEAFVIA6398-09-27 11:17:002[facility] OumzyqtVSTSNDZCUUYA3813-02-31 11:17:0019.20[facility] [place] NUMEJQAPVRLQ6168-00-17 11:17:0097[facility] CtlojgrJEHXMYZDHSZM4648-77-38 11:17:00 4.7[facility] SyzrfdzEVHBXOOAWSVO9578-28-54 11:17:52853Ivumfvyn [place] IMUXDYKTPPEH2659-38-29 11:17:0082[facility] WwplykhBNVHICZPJNBV5914-93-58 11:17:00 19.7[facility] MqmlndaQHGYZMFFTL9360-71-03 11:17:004.9[facility] HermannHEMATOLOGY 2018-07-22 11:17:002.85[facility] NuqknkaWEVMZUWXUY1843-99-98 11:17:0082.3[facility] QbiyhhaKIJSZAJYFE5779-71-16 11:17:00 Test Item Value Reference Range Interpretation Comments MCH (test code = MCH) 28.8 pg 27.0-31.0 [facility] CbtclnnELOORTKYUW2527-07-37 11:17:008.2[facility] HermannHEMATOLOGY 2018-07-22 11:17:0023.4[facility] NnvwriwOFQLRYOKHJ8908-18-65 11:17:0015.0[facility] AjibfxqORJUDWHGUH1039-01-33 11:17:0035.0[facility] FjduuuiUVZDRRZFPR6217-84-78 11:17:007.4[facility] UrxnirzOMPRSUMZZS3365-14-41 11:17:92667Hdnvwdnj [place] ANYZXDKHVV9226-57-29 11:17:0020.3[facility] MpbzhgvCMACIFRRSH9844-02-02 11:17:00 1.0[facility] KqdkdkvYJUDXTSJLI5678-82-58 11:17:0067.1[facility] HermannHEMATOLOGY 2018-07-22 11:17:003.3[facility] SrzyswhFFETKTXOYE6661-85-29 11:17:003.1[facility] PvrxbjpPCQBPMFUJN2672-92-36 11:17:008.5[facility] CatsufvSEVCBFVHNR5837-71-83 11:17:000.4[facility] DlhtmhxXMZALKNCOT8475-60-13 11:17:001.0[facility] [place] CQMYBLTASP5079-77-52 11:17:000.1[facility] FxezcxwIFUOUZYALG8682-13-05 11:17:00 Negative *NA*(07/22/18 6:17 AM)[facility] HermannCARDIAC QELJUFJ7884-91-94 02:46:1771117Zpggsiiq HermannCARDIAC NRYUOLP5453-37-40 02:46:00<0.02[facility] HermannCARDIAC RLRZWAZ9767-92-01 02:46:0091[facility] HermannCHEM DNXCE0719-56-92 02:46:0095[facility]annCHEM VCJJQ0200-53-05 02:46:003.2[facility] HermannCHEM LIGSK9744-49-81 02:46:00 Test Item Value Reference Range Interpretation Comments A/G Ratio (test code = A/G Ratio) 0.9 1 0.7-1.6 [facility]annCHEM TDSXM8075-07-97 02:46:00 Test Item Value Reference Range Interpretation Comments B/C Ratio (test code = B/C Ratio) 5 1 6-25 [facility]annCHEM ZYXZP2065-30-65 02:46:0018.7[facility] HermannCHEM PANEL 2018-07-22 02:46:002[facility]annCHEM GKUGC5372-43-28 02:46:007.6[facility]annCHEM HXWSN4362-36-04 02:46:0024[facility]annCHEM VSFKU1192-33-89 02:46:0098[facility]annCHEM QYIBP2928-58-65 02:46:004.7[facility] HermannCHEM LUEZS8364-75-77 02:46:63463Ycjqwfvx HermannCHEM LGFEV1073-65-59 02:46:002.8 [facility]annCHEM FNZMH1450-40-39 02:46:0013[facility] HermannCHEM PANEL 2018-07-22 02:46:009[facility]annCHEM OUXPM5840-84-59 02:46:0057[facility] HermannCHEM BVABA2849-34-52 02:46:006.0[facility] HermannCHEM VODHU7861-51-39 02:46:000.4[facility]annCHEM XKKVC1561-93-26 02:46:0018.60[facility] CHEM DFLRP0102-46-22 02:46:0089[facility] HermannCHEM IBKVB8723-37-87 02:46:0095 [facility] BlfxxujXKWGFHNOLU1180-58-07 02:46:0066.2[facility] HermannHEMATOLOGY 2018-07-22 02:46:0021.4[facility] IexzhwfMTSWIPABUP7341-00-93 02:46:007.7[facility] EarbnbuJCOBNOUDRY7847-92-55 02:46:000.9[facility] TfdqgpfGNUVYDPEKI1047-25-16 02:46:001.2[facility] NkpvslqVXXXSMBKWA6041-26-27 02:46:000.3[facility] ILJUTISJHJ4203-76-83 02:46:000.1[facility] SscdnhmPRSPZZHUHY1653-50-80 02:46:002.7 [facility] XtqvtorXKCUJCSZJA2843-08-21 02:46:003.5[facility] HermannHEMATOLOGY 2018-07-22 02:46:00 Test Item Value Reference Range Interpretation Comments PT (test code = PT) 14.4 s 12.0-14.7 [facility] VwoyvteGOUFHTOHME6693-34-17 02:46:00 Test Item Value Reference Range Interpretation Comments INR (test code = INR) 1.12 1 0.85-1.17 [facility] PrzxbjzJZJYMOBTDF0052-29-13 02:46:00 Test Item Value Reference Range Interpretation Comments PTT (test code = PTT) 37.1 s 22.9-35.8 [facility] UawebvjXQNRNHQSXV0118-30-64 02:46:0014.8[facility] HermannHEMATOLOGY 2018-07-22 02:46:33196Upkhlozm LftlabbBBMDRJIDBF8250-39-56 02:46:007.6[facility] SsnxdhcADEQHMRVBV9360-64-99 02:46:002.83[facility] GlzilvzEGVEGRTPEQ0978-83-05 02:46:004.1[facility] XyqnczvLZXNTVUCNC3607-78-08 02:46:0035.2[facility] [place] GCZVIPMWGB0967-82-73 02:46:00 Test Item Value Reference Range Interpretation Comments MCH (test code = MCH) 28.8 pg 27.0-31.0 [facility] RvgttdsAAPIYFTFFU3041-93-21 02:46:008.1[facility]annHEMATOLOGY 2018-07-22 02:46:0081.9[facility] JsayetfQOGRVLXKOJ4848-30-51 02:46:0023.2[facility] HermannCHEM TQCXZ8397-84-41 02:46:09116Ridtimfk HermannCHEM FMQXA8055-91-47 02:46:002.8[facility] HermannCHEM DKJSD3320-10-99 02:46:0013[facility]annCHEM NGBSC4200-33-80 02:46:009[facility]annCHEM NEHGM2746-93-52 02:46:0057[facility]annCHEM SZFMI2014-95-68 02:46:006.0[facility]annCHEM XYCQN3337-88-03 02:46:000.4[facility]annCHEM AGJZU5078-54-75 02:46:0018.60[facility] [place] CHEM TXKDP5362-72-32 02:46:0089[facility] HermannCHEM ZVEHK9761-80-00 02:46:0095 [facility] QckzcezRDICWNVZHV1860-82-19 02:46:0066.2[facility]annHEMATOLOGY 2018-07-22 02:46:0021.4[facility] NupjxmcPBOVIRRYPD1570-21-56 02:46:007.7[facility] CpvyutiUMRDVVNLWV5795-75-32 02:46:000.9[facility] LstdvuuUQUFTLIAUA5219-64-46 02:46:001.2[facility] XcxnnqxWXGPIPSQVL9156-81-48 02:46:000.3[facility] [place] DSTMBFZRDH3319-95-72 02:46:000.1[facility] YatfcykRKVUBNCZHJ6074-48-74 02:46:002.7 [facility] TnjgdyxVBHKYYHROE5978-10-75 02:46:003.5[facility]annHEMATOLOGY 2018-07-22 02:46:00 Test Item Value Reference Range Interpretation Comments PT (test code = PT) 14.4 s 12.0-14.7 [facility] YsjwkwzSEDUZWOLFN8564-13-53 02:46:00 Test Item Value Reference Range Interpretation Comments INR (test code = INR) 1.12 1 0.85-1.17 [facility] IzdthnzKTHMSQCCMQ3152-48-88 02:46:00 Test Item Value Reference Range Interpretation Comments PTT (test code = PTT) 37.1 s 22.9-35.8 [facility] BqbblzdIJRDMQEONV7534-21-13 02:46:0014.8[facility] HermannHEMATOLOGY 2018-07-22 02:46:25015Cuvqicxj IbhhawfILDOFXFUNI8885-91-88 02:46:007.6[facility] YlxnrhgXXOKOYGBRU6671-92-69 02:46:002.83[facility] PtbtjnkCXPDQKMDCV5712-84-68 02:46:004.1[facility] NmlscdzFCYBQMYEUM8818-42-14 02:46:0035.2[facility] [place] JNXVAMTEPJ2338-81-52 02:46:00 Test Item Value Reference Range Interpretation Comments MCH (test code = MCH) 28.8 pg 27.0-31.0 [facility] GpxpmmmIQQUFHOYYS1828-89-63 02:46:008.1[facility]annHEMATOLOGY 2018-07-22 02:46:0081.9[facility] RxdrbvnIULHOMOGYN8512-54-32 02:46:0023.2[facility] HermannCARDIAC MZEJSAD2567-06-26 02:46:9608552Pxbjffcl HermannCARDIAC ENZYMES 2018-07-22 02:46:00<0.02[facility] HermannCARDIAC FNUJHQK9702-97-38 02:46:0091 [facility]annCHEM CMOKJ2181-37-93 02:46:0095[facility]annCHEM PANEL 2018-07-22 02:46:003.2[facility]annCHEM MKNUX3656-28-72 02:46:00 Test Item Value Reference Range Interpretation Comments A/G Ratio (test code = A/G Ratio) 0.9 1 0.7-1.6 [facility]annCHEM MHKPJ2676-40-83 02:46:00 Test Item Value Reference Range Interpretation Comments B/C Ratio (test code = B/C Ratio) 5 1 6-25 [facility]annCHEM VDQMT4439-09-78 02:46:0018.7[facility] HermannCHEM PANEL 2018-07-22 02:46:002[facility]annCHEM GGKHB2616-84-75 02:46:007.6[facility]annCHEM IPAZC1135-99-73 02:46:0024[facility]annCHEM EXDTK1941-61-08 02:46:0098[facility]annCHEM EXVRJ0625-99-15 02:46:004.7[facility] HermannCHEM FKCSX7262-19-21 02:46:50411Bsmkoctq HermannCHEM GBWEU1714-84-74 02:46:002.8 [facility]annCHEM SDRJQ9119-04-99 02:46:0013[facility]annCHEM PANEL 2018-07-22 02:46:009[facility] HermannCHEM KYWZJ8896-53-33 02:46:0057[facility]annCHEM ADUPC0310-64-52 02:46:006.0[facility] HermannCHEM JSEKI5040-77-21 02:46:000.4[facility]annCHEM FSUVX7746-50-98 02:46:0018.60[facility] CHEM STHGB9954-37-23 02:46:0089[facility] HermannCHEM OVOGL7665-61-70 02:46:0095 [facility] VaxpyohYDVFAKXJFD2915-21-51 02:46:0066.2[facility]annHEMATOLOGY 2018-07-22 02:46:0021.4[facility] ObrzwbqXOUTSLGRQI5420-20-92 02:46:007.7[facility] YjzcuucWSUOACYOMD9517-71-35 02:46:000.9[facility] MijfxoxOUUSLHTGBH8313-33-41 02:46:001.2[facility] XmkcnpjAJZHAAWYSX6176-70-14 02:46:000.3[facility] CKPRMHOLOL9095-40-12 02:46:000.1[facility] WtgqurvDXWOXHONHU7626-45-94 02:46:002.7 [facility] LewejstJQHHVVDDUN5798-89-24 02:46:003.5[facility]annHEMATOLOGY 2018-07-22 02:46:00 Test Item Value Reference Range Interpretation Comments PT (test code = PT) 14.4 s 12.0-14.7 [facility] SxdhzdlDYKMKJSPRC0492-84-45 02:46:00 Test Item Value Reference Range Interpretation Comments INR (test code = INR) 1.12 1 0.85-1.17 [facility] FnyezlqLVQCIWETWZ6549-91-92 02:46:00 Test Item Value Reference Range Interpretation Comments PTT (test code = PTT) 37.1 s 22.9-35.8 [facility] RbwxrkcFYEYNBVRLH6958-97-24 02:46:0014.8[facility] HermannHEMATOLOGY 2018-07-22 02:46:92548Veuoufzv AddiznsABETFMEYWK6572-17-89 02:46:007.6[facility] TzahyoyWNCTFAFHVT6557-68-34 02:46:002.83[facility] JwopsvsYYMWNHJPVC0901-67-97 02:46:004.1[facility] RjhwgmtBKCEUPLQCA9527-42-33 02:46:0035.2[facility] [place] TEYFZKAHAW7466-48-20 02:46:00 Test Item Value Reference Range Interpretation Comments MCH (test code = MCH) 28.8 pg 27.0-31.0 [facility] OntsfbyYDGTQALGOX1615-23-76 02:46:008.1[facility] HermannHEMATOLOGY 2018-07-22 02:46:0081.9[facility] AqavteqGDNIVPPCLG6927-22-25 02:46:0023.2[facility] HermannCARDIAC HAQASIV2540-03-80 02:46:7111918Zqexeyqj HermannCARDIAC ENZYMES 2018-07-22 02:46:00<0.02[facility] HermannCARDIAC QXWZXEH3823-53-93 02:46:0091 [facility]annCHEM HOTFI1792-52-81 02:46:0095[facility]annCHEM PANEL 2018-07-22 02:46:003.2[facility] HermannCHEM IRKPV5296-45-26 02:46:00 Test Item Value Reference Range Interpretation Comments A/G Ratio (test code = A/G Ratio) 0.9 1 0.7-1.6 [facility]annCHEM KYIIX7358-54-79 02:46:00 Test Item Value Reference Range Interpretation Comments B/C Ratio (test code = B/C Ratio) 5 1 6-25 [facility]annCHE[facility] GXGHZ9873-16-72 02:46:0018.7[facility]annCHEM PANEL 2018-07-22 02:46:002[facility]CHE[facility] EILRD7930-50-86 02:46:007.6[facility]annCHE[facility] VMOAB1952-01-15 02:46:0024[facility]annCHE[facility] CTFHO4957-04-63 02:46:0098[facility] HJGLU4942-66-83 02:46:004.7[facility]annCHE[facility] PYGIR2383-91-85 22:52:0086[facility]CHE[facility] RYTXC9461-91-82 22:52:0097 [facility] UGWHO3334-35-82 22:52:005.2[facility]annCHEM PANEL 2018-07-20 22:52:42755Jfuknzum HermannCHEM LEUQL8338-45-14 22:52:0017.30[facility]annCHE[facility] ADKMS8408-87-04 22:52:0098[facility]CHE[facility] YTVHC4229-10-15 22:52:003[facility]annCHE[facility] JLIRC6142-29-45 22:52:0070[facility]CHE[facility] BEHMX9238-22-24 22:52:0010[facility]CHE[facility] HSSJI1134-44-91 22:52:000.4 [facility] FSFPN0669-75-60 22:52:006.8[facility]annCHEM PANEL 2018-07-20 22:52:008.1[facility]annCHE[facility] AIZUC2916-00-27 22:52:0024[facility]CHE[facility] MCXGS9836-48-33 22:52:0019[facility]CHE[facility] SIEZR2250-38-99 22:52:003.3[facility]annCHE[facility] PQNLL0160-92-17 22:52:00 Test Item Value Reference Range Interpretation Comments A/G Ratio (test code = A/G Ratio) 0.9 1 0.7-1.6 [facility]CHE[facility] GRYNA7948-00-47 22:52:0019.2[facility]annCHEM PANEL 2018-07-20 22:52:003.5[facility]annCHE[facility] GUMUM4839-65-85 22:52:00 Test Item Value Reference Range Interpretation Comments B/C Ratio (test code = B/C Ratio) 5 1 6-25 [facility] OvcgmotEBYYHIGKJV2622-38-27 22:52:69340Ugsbuqzt HermannHEMATOLOGY 2018-07-20 22:52:006.8[facility] TkjczxpIGQOLRLOUN5568-33-00 22:52:0035.4[facility] TrfhnwhLNXBMLJDSY1633-43-42 22:52:0015.1[facility] PxutlepKFXXEMTRGC1952-86-49 22:52:0026.1[facility] VqkxbqeBYGSGBOWVP5886-83-62 22:52:0081.4[facility] [place] WLUFTJNURC6817-38-33 22:52:00 Test Item Value Reference Range Interpretation Comments MCH (test code = MCH) 28.8 pg 27.0-31.0 [facility] ObaacidGZTFPERSIS8982-99-71 22:52:005.4[facility]annHEMATOLOGY 2018-07-20 22:52:003.20[facility] TlqmjntJETGBLOEHM7264-48-78 22:52:009.2[facility] NoeokhsYKMSEFKCCN1383-30-43 22:52:0074.0[facility] VssiuapVGIZVPJUGR9460-36-40 22:52:0015.5[facility] AegbgoyJTZVFGKIPE2549-35-45 22:52:006.7[facility] GVTQPTFKRK1270-79-21 22:52:002.8[facility] VdeielnTBYNIGMBHU3738-44-14 22:52:001.0 [facility] CwksxnmMOMRTWGRGL5565-51-19 22:52:004.0[facility]annHEMATOLOGY 2018-07-20 22:52:000.1[facility] GiaezoyRRREOMZOWP7445-05-64 22:52:000.2[facility] SgryurgUFTSYBXQEI3763-14-67 22:52:000.8[facility] AlfqrhuXAIEGMVWDZ3198-58-64 22:52:000.4[facility]annCHEM DWASK1259-48-53 22:52:0086[facility]annCHEM DAVEF2633-00-70 22:52:0097[facility]annCHEM XITBL0092-27-83 22:52:005.2 [facility]CHE[facility] QAHQM7161-21-32 22:52:74045Niinqyam HermannCHEM PANEL 2018-07-20 22:52:0017.30[facility]annCHEM HQBUC2191-19-31 22:52:0098[facility]annCHEM KTYEP8775-22-37 22:52:003[facility]annCHEM BAGFQ0355-03-51 22:52:0070[facility]annCHE[facility] VJDJG1167-86-98 22:52:0010[facility]annCHE[facility] RFYAK7692-82-66 22:52:000.4[facility]annCHE[facility] SVWDY2392-31-40 22:52:006.8 [facility]annCHE[facility] QCRKY1722-82-56 22:52:008.1[facility]annCHEM PANEL 2018-07-20 22:52:0024[facility]annCHEM THBSC2677-45-37 22:52:0019[facility]annCHE[facility] CBXDF1877-65-94 22:52:003.3[facility]annCHEM DXJGU2500-39-90 22:52:00 Test Item Value Reference Range Interpretation Comments A/G Ratio (test code = A/G Ratio) 0.9 1 0.7-1.6 [facility]CHE[facility] XYUYU2440-36-44 22:52:0019.2[facility]annCHEM PANEL 2018-07-20 22:52:003.5[facility]annCHEM OTSXF7778-73-39 22:52:00 Test Item Value Reference Range Interpretation Comments B/C Ratio (test code = B/C Ratio) 5 1 6-25 [facility] MdbjczeWFEZBPSHGS4134-10-92 22:52:12030[place] HermannHEMATOLOGY 2018-07-20 22:52:006.8[facility] UdnsuinRVTPLUXKOT4389-34-95 22:52:0035.4[facility] MtdxwotFKMSMSCEKY0305-97-07 22:52:0015.1[facility] WwdescuVMEOURKVZT5885-89-52 22:52:0026.1[facility] FlkoshhNJDLDDOEYK0776-22-81 22:52:0081.4[facility] RPJNJYDAFQ5299-98-51 22:52:00 Test Item Value Reference Range Interpretation Comments MCH (test code = MCH) 28.8 pg 27.0-31.0 [facility] XyovvmwOJVYUPOJTM1978-83-66 22:52:005.4[facility]annHEMATOLOGY 2018-07-20 22:52:003.20[facility] TryoyamIWKFYHUABG9400-68-05 22:52:009.2[facility] ScsnaqfGSSIIEWEMO8554-80-20 22:52:0074.0[facility] SucfisqQGBOVQITKR0867-69-18 22:52:0015.5[facility] HmcaxapNATXTZOQOM5240-89-85 22:52:006.7[facility] [place] VQCAAJPYQO7179-25-33 22:52:002.8[facility] DnrnivnZVJXYOQFET0005-24-14 22:52:001.0 [facility] NkuuazpLCIXQRHNRM3519-72-30 22:52:004.0[facility]annHEMATOLOGY 2018-07-20 22:52:000.1[facility] GjggnjnRNZFRMCQXA6053-39-56 22:52:000.2[facility] IsbvylqPTMPTIZXLO9026-57-88 22:52:000.8[facility] HlnljcyMKXDNZWIMF5659-49-79 22:52:000.4[facility]annCHEM NTBMF7663-73-65 22:52:0086[facility]annCHEM RRIFV1321-14-37 22:52:0097[facility]annCHEM EAJQL5875-06-24 22:52:005.2 [facility]annCHE[facility] QPVMY9117-30-36 22:52:52137Rxicbwpy HermannCHEM PANEL 2018-07-20 22:52:0017.30[facility]annCHEM PMANR6249-65-08 22:52:0098[facility]annCHEM TDBFF5533-59-01 22:52:003[facility]annCHEM CWEAY8055-38-27 22:52:0070[facility]annCHEM BEVYI2411-45-80 22:52:0010[facility]annCHEM YKUXE6754-30-81 22:52:000.4[facility]annCHEM QXQKY3067-56-63 22:52:006.8 [facility]annCHEM JQISK2965-14-70 22:52:008.1[facility]annCHEM PANEL 2018-07-20 22:52:0024[facility]annCHEM KERNF1303-61-27 22:52:0019[facility]annCHEM PXUZW1477-44-50 22:52:003.3[facility]annCHEM MBKTA3616-92-19 22:52:00 Test Item Value Reference Range Interpretation Comments A/G Ratio (test code = A/G Ratio) 0.9 1 0.7-1.6 [facility]annCHE[facility] KTDEN7659-10-54 22:52:0019.2[facility]annCHEM PANEL 2018-07-20 22:52:003.5[facility]annCHEM RUOWC5728-52-39 22:52:00 Test Item Value Reference Range Interpretation Comments B/C Ratio (test code = B/C Ratio) 5 1 6-25 [facility] ThnsnwhVFLUCFDVXX0559-00-48 22:52:76817Rvjgkwme HermannHEMATOLOGY 2018-07-20 22:52:006.8[facility] XwxeuisLXZXTWDOFI4190-67-89 22:52:0035.4[facility] ZtumrjhWWOLOTLSYO2400-16-07 22:52:0015.1[facility] TyfefipVIDTALMSUS5847-18-24 22:52:0026.1[facility] UqfmkkzLMPWWOJVLE4057-20-80 22:52:0081.4[facility] [place] FPKEWWBWCF5980-15-70 22:52:00 Test Item Value Reference Range Interpretation Comments MCH (test code = MCH) 28.8 pg 27.0-31.0 [facility] TylturvCOWIGKMAXG3661-32-76 22:52:005.4[facility] HermannHEMATOLOGY 2018-07-20 22:52:003.20[facility] JvqjivgRICGPAMXPU6603-50-39 22:52:009.2[facility] GpgpqryDCXTFHLSSS4367-74-54 22:52:0074.0[facility] CbkscfxDLLOBIQUFG9541-53-81 22:52:0015.5[facility] XdcugrhPMHWOTOAHC2659-15-54 22:52:006.7[facility] IMUWQOPWIL5424-46-64 22:52:002.8[facility] LevzdilERAICRBPYN9870-10-19 22:52:001.0 [facility] MoapwojOWORGRVPXL7177-31-65 22:52:004.0[facility] [facility]HEMATOLOGY 2018-07-20 22:52:000.1[facility] RbsmrwcDPZNRATHPX9618-15-10 22:52:000.2[facility] WeynrqnGZBEKNXTLA3370-96-46 22:52:000.8[facility] BwwihraBIGZKSDOGJ5938-05-90 22:52:000.4[facility] DDYRO2927-94-67 15:20:00Small *ABN*(05/23/18 10:20 AM)[facility] ZMIXC6230-45-24 15:20:00<1[facility] [place] URINE AND CGQVT5335-91-96 15:20:009[facility] GTWJL9062-37-78 15:20:00Negative (05/23/18 10:20 AM)[facility] LVLFZ9874-76-69 15:20:00Trace *ABN*(05/23/18 10:20 AM)[facility] IESZM5955-00-54 15:20:00Negative *NA*(05/23/18 10:20 AM)[facility] UYSPA2027-31-19 15:20:00 Test Item Value Reference Range Interpretation Comments UA pH (test code = UA pH) 6.5 1 5.0-8.0 [facility] SLTTR8993-91-63 15:20:00 Test Item Value Reference Range Interpretation Comments UA Spec Grav (test code = UA Spec 1.008 1 Grav) [facility] DYVVF3583-95-30 15:20:00Slight *ABN*(05/23/18 10:20 AM) [facility] UQOXO5605-48-89 15:20:00Yellow *NA*(05/23/18 10:20 AM) [facility] TYAL1734-83-55 15:20:523673.0[facility] CHEM 2018-05-23 15:20:00 Test Item Value Reference Range Interpretation Comments U Prot/Creat (test code = U 6.61 1 Prot/Creat) [facility] WFEV8317-26-80 15:20:0055.00[facility] CHEM 2018-05-23 15:20:64681.8[facility] RIPCI2298-91-44 15:20:00Small *ABN*(05/23/18 10:20 AM)[facility] VPUHQ7674-11-11 15:20:00<1 [facility] TLFEN1518-98-11 15:20:009[facility] JCGZS7928-50-40 15:20:00Negative (05/23/18 10:20 AM)[facility] ULCOD4080-09-87 15:20:00Trace *ABN*(05/23/18 10:20 AM)[facility] YIOAN2640-89-33 15:20:00Negative *NA*(05/23/18 10:20 AM)[facility] IGPST7545-56-34 15:20:00 Test Item Value Reference Range Interpretation Comments UA pH (test code = UA pH) 6.5 1 5.0-8.0 [facility] GFWFL7964-91-15 15:20:00 Test Item Value Reference Range Interpretation Comments UA Spec Grav (test code = UA Spec 1.008 1 Grav) [facility] WIHFN1453-90-52 15:20:00Slight *ABN*(05/23/18 10:20 AM) [facility] BDXWX4446-53-66 15:20:00Yellow *NA*(05/23/18 10:20 AM) [facility] DLYZ6786-56-26 15:20:271769.0[facility] CHEM 2018-05-23 15:20:00 Test Item Value Reference Range Interpretation Comments U Prot/Creat (test code = U 6.61 1 Prot/Creat) [facility] RVWA2611-51-79 15:20:0055.00[facility] CHEM 2018-05-23 15:20:17775.8[facility] NINWC3812-52-92 15:20:00Small *ABN*(05/23/18 10:20 AM)[facility] TVGVH9211-52-88 15:20:00<1 [facility] KCOFA0370-91-91 15:20:009[facility] ZNIWW8920-12-74 15:20:00Negative (05/23/18 10:20 AM)[facility] ZPUJM1028-85-32 15:20:00Trace *ABN*(05/23/18 10:20 AM)[facility] BPXGC3945-83-12 15:20:00Negative *NA*(05/23/18 10:20 AM)[facility] PTGAJ0490-37-57 15:20:00 Test Item Value Reference Range Interpretation Comments UA pH (test code = UA pH) 6.5 1 5.0-8.0 [facility] GEKZY0323-88-18 15:20:00 Test Item Value Reference Range Interpretation Comments UA Spec Grav (test code = UA Spec 1.008 1 Grav) [facility] RHCUS8772-19-18 15:20:00Slight *ABN*(05/23/18 10:20 AM) [facility] KVAAR0045-50-43 15:20:00Yellow *NA*(05/23/18 10:20 AM) [facility] ORJA2902-12-77 15:20:023400.0[facility] CHEM 2018-05-23 15:20:00 Test Item Value Reference Range Interpretation Comments U Prot/Creat (test code = U 6.61 1 Prot/Creat) [facility] MFZF8339-37-73 15:20:0055.00[facility] CHEM 2018-05-23 15:20:51155.8[facility] HermannANEMIA ZVWHI4645-79-03 14:55:0035 [facility]annANEMIA MEVNT3555-69-52 14:55:57670Eqyxfehq HermannANEMIA STUDY 2018-05-23 14:55:06440Twryvonn HermannANEMIA KJYIB8579-68-01 14:55:0097[facility]annANEMIA CVJPM1134-42-86 14:55:95560Nrnfznxg HermannCHEM CUJDH1411-19-88 14:55:008.0[facility]annCHEM PCZVW1211-51-56 14:55:002.5[facility]annCHEM GXDID9615-39-51 14:55:0026.3[facility]annCHEM GORWM4900-94-68 14:55:003.5 [facility]annCHE[facility] IGKPY4066-72-84 14:55:007[facility]annCHEM PANEL 2018-05-23 14:55:0080[facility]annCHE[facility] ZNTKU4267-82-04 14:55:000.4[facility]annCHEM UEIAS0028-46-97 14:55:004.3[facility]annCHEM NVFKM1824-77-49 14:55:0022[facility]annCHE[facility] EJOVS8148-40-08 14:55:008.8[facility]annCHEM GPGCZ2928-88-90 14:55:008.1[facility]annCHEM NNOGE6035-92-52 14:55:0012 [facility]annCHE[facility] HXKDU0590-36-91 14:55:0026[facility]annCHEM PANEL 2018-05-23 14:55:0097[facility]annCHE[facility] YPQHC7537-60-56 14:55:003.8[facility]annCHEM GUOPA7453-06-43 14:55:008.22[facility]annCHEM WOKFN5986-69-73 14:55:85165Jwkfvvtz HermannCHEM YLSOZ6630-27-17 14:55:0059[facility]annCHE[facility] YZRSN9864-42-97 14:55:0098[facility]annCHEM NOEDA7102-74-43 14:55:003.8 [facility]annCHE[facility] VIGBW1271-73-63 14:55:00 Test Item Value Reference Range Interpretation Comments A/G Ratio (test code = A/G Ratio) 1.1 1 0.7-1.6 [facility] UXNNU9933-34-47 14:55:0016.8[facility]annCHEM PANEL 2018-05-23 14:55:00 Test Item Value Reference Range Interpretation Comments B/C Ratio (test code = B/C Ratio) 7 1 04-02 [facility] AMVWKP4103-45-13 14:55:00Negative (05/23/18 9:55 AM)[facility] JVIEMV6441-65-32 14:55:00Negative (05/23/18 9:55 AM)[facility] RJKYUC6031-40-97 14:55:00Positive *ABN*(05/23/18 9:55 AM)[facility] WBLCHP6269-03-90 14:55:00Negative (05/23/18 9:55 AM)[facility] SWVBIL7922-91-53 14:55:00Negative (05/23/18 9:55 AM)[facility] SCREEN 2018-05-23 14:55:00See Note (05/23/18 9:55 AM)[facility] SCREEN 2018-05-23 14:55:00Negative (05/23/18 9:55 AM)[facility] SCREEN 2018-05-23 14:55:00Negative (05/23/18 9:55 AM)[facility]CRE[facility] 2018-05-23 14:55:00Negative (05/23/18 9:55 AM)[facility] SCREEN 2018-05-23 14:55:00Positive *ABN*(05/23/18 9:55 AM)[facility] SCREEN 2018-05-23 14:55:00See Note 2(05/23/18 9:55 AM)[facility] SCREEN 2018-05-23 14:55:00See Note 1(05/23/18 9:55 AM)[facility]annHEMATOLOGY 2018-05-23 14:55:000.3[facility] VdvfeotKWHMKQNYTI2620-73-55 14:55:000.1[facility] RluiamzFLXAJGKVWT7892-88-16 14:55:003.9[facility] FbdgzkuBEIEUKLTMK4973-56-52 14:55:001.3[facility] NjftjedYSSRBODBUD0351-32-71 14:55:000.5[facility] YRYYXVFWLV6137-95-80 14:55:000.9[facility] WtmbyezNVOLDZMCAW9065-38-07 14:55:007.7 [facility] MdnahrpLNGPCWPISM3915-52-08 14:55:004.3[facility] HermannHEMATOLOGY 2018-05-23 14:55:0022.0[facility] BxmpdryBTCJWXHCTS7478-23-69 14:55:0065.1[facility] FqkbkbpYGLYXZZHGR4984-89-87 14:55:00 Test Item Value Reference Range Interpretation Comments INR (test code = INR) 1.06 1 0.85-1.17 [facility] ZtbgavkQTHUULAHBF7369-73-90 14:55:00 Test Item Value Reference Range Interpretation Comments PT (test code = PT) 13.8 s 12.0-14.7 [facility] CmerxtpWHIJUQRDLB8514-26-42 14:55:00 Test Item Value Reference Range Interpretation Comments PTT (test code = PTT) 35.0 s 22.9-35.8 [facility] AldwcmoXLUANSQBFQ1454-35-62 14:55:0018.1[facility]annHEMATOLOGY 2018-05-23 14:55:008.0[facility] WyoesvdYQMGOHFQVT7178-98-93 14:55:93794Mlxgrfog HrgjervBWTTDLODKH9247-31-86 14:55:0033.3[facility] JlfuhluMWBSTBQZXV5983-99-28 14:55:004.54[facility] KeswgvvNGSBCQALVT0843-18-43 14:55:006.1[facility] [place] OPYYPTVYMG6208-92-37 14:55:0080.9[facility] SydibsuBDLWDMODOK7187-04-16 14:55:00 36.7[facility] EhcbzhhRAFYIRICPB7824-71-65 14:55:00 Test Item Value Reference Range Interpretation Comments MCH (test code = MCH) 27.0 pg 27.0-31.0 [facility] HlcpviyAHPALTHFUO4202-56-74 14:55:0012.2[facility] HermannIMMUNOLOGY 2018-05-23 14:55:00>8.0[facility] FbdkujfMDKTWAXZTC4492-45-27 14:55:00<0.91 [facility] QjsqkwgBTPNZCXPHD2579-04-06 14:55:00Non-Reactive *NA*(05/23/18 9:55 AM) [facility] FznstjcXDUVCPOWIX1582-40-58 14:55:00Negative (05/23/18 9:55 AM)[facility] HzcsaefZWFADRZXPM3590-45-61 14:55:0018.2[facility] SiotllnCNJZJAYRPV4161-82-68 14:55:007.8[facility] TfrshbaQWSEJCYFPV3597-01-96 14:55:009.5[facility] QFVLUEROCV8215-58-74 14:55:0060.9[facility] ZhatnavHMWKQPRBYJ7415-57-25 14:55:00 3.6[facility] WjguqksZWPTILIAHN7649-25-13 14:55:001.47[facility] HermannIMMUNOLOGY 2018-05-23 14:55:008.1[facility] HbbrhlmAGOUZMPDIS8507-98-95 14:55:000.77[facility] YtqgsjoOPTAGUHADC6544-93-14 14:55:004.93[facility] CgbasbwCMBNCRAIGC1129-25-76 14:55:000.29[facility] QhpqftoYYBLNKFBDY9712-35-88 14:55:000.63[facility] ETNVJAWZRJ5013-94-34 14:55:002.18[facility] NpwynkpILXSCXSWAY9652-23-26 14:55:00 89.85[facility] UloberdERUWYXSNZH1553-13-98 14:55:89741.11[facility] PQYJJWTJJQ6555-85-69 14:55:00>8.0[facility] RuadvrfXILQFAQXHB3292-30-61 14:55:00<0.2[facility] UmccbvyKRMKTPBFIP8920-67-43 14:55:000.2[facility] DPUPIGZSVS4770-83-80 14:55:00Reactive *ABN*(05/23/18 9:55 AM)[facility] GFJROLYZST7968-40-98 14:55:00>8.0[facility] NzqwmelJQQETYOQCQ1033-05-31 14:55:004.5[facility] EbuvjdlBTNTQUCXLX8154-50-84 14:55:00Negative *NA*(05/23/18 9:55 AM)[facility] GzakpiqGLPPMPABXE2910-95-81 14:55:00<0.2[facility] VNPOAXHPKN3428-74-71 14:55:00Negative *NA*(05/23/18 9:55 AM)[facility] ZSDEOYFVHE2463-14-51 14:55:00Negative *NA*(05/23/18 9:55 AM)[facility] ZXEXXMCGQL5544-46-64 14:55:00Negative *NA*(05/23/18 9:55 AM)[facility] EMEWPE0048-61-83 14:55:00 Test Item Value Reference Range Interpretation Comments VLDL (test code = VLDL) 30 1 [facility] OjrslvuNRXXLX8884-12-13 14:55:0074[facility] AhizxyiWBIGGC5913-06-17 14:55:56681Jwqetufy NfeijvnHALFXN3153-36-97 14:55:0072[facility] HermannLIPIDS 2018-05-23 14:55:15010Qvxvgeep XrwimgaRAXDIV2308-64-85 14:55:00 Test Item Value Reference Range Interpretation Comments CHD Risk (test code = CHD Risk) 2.44 1 4.00-7.30 [facility]annPARATHYROID QMGCBXT1424-08-86 14:55:95483.0[facility] SPECIAL AFIBWBYUO5906-50-50 14:55:000.46[facility]annSPECIAL CHEMISTRY 2018-05-23 14:55:004.9[facility] HermannANEMIA ADGGX0012-06-72 14:55:0035[facility] HermannANEMIA FRLVY0592-21-64 14:55:83343Qkiojhzy HermannANEMIA BGTEQ2386-59-51 14:55:63011Rtoanmma HermannANEMIA LBHFZ6402-25-33 14:55:0097[facility] ANEMIA ECUTI7519-94-05 14:55:72935Ezbxojcu HermannCHEM PAYUC1282-19-76 14:55:00 8.0[facility] HermannCHEM GYQYR8018-89-06 14:55:002.5[facility] HermannCHEM PANEL 2018-05-23 14:55:0026.3[facility] HermannCHEM PACRH6377-83-77 14:55:003.5[facility] HermannCHEM QAOGO5403-29-83 14:55:007[facility] HermannCHEM OVWWF4192-10-21 14:55:0080[facility]annCHEM BSLVO6893-56-51 14:55:000.4[facility] HermannCHEM HQVVI9854-08-58 14:55:004.3[facility] HermannCHEM NBVYP9057-59-58 14:55:0022 [facility]annCHEM UXHPO0200-56-49 14:55:008.8[facility] HermannCHEM PANEL 2018-05-23 14:55:008.1[facility] HermannCHEM FMKEY8133-06-77 14:55:0012[facility] HermannCHEM TKHYX9479-08-33 14:55:0026[facility]annCHEM DRBQQ2339-47-48 14:55:0097[facility]annCHEM KUHVB5537-81-51 14:55:003.8[facility]annCHEM YDCBT8103-51-62 14:55:008.22[facility] HermannCHEM ELZRZ4817-67-10 14:55:97437 [facility]annCHEM CJHXD1261-79-76 14:55:0059[facility] HermannCHEM PANEL 2018-05-23 14:55:0098[facility] HermannCHEM LJJJT0338-25-55 14:55:003.8[facility] HermannCHEM KCSIA3966-49-93 14:55:00 Test Item Value Reference Range Interpretation Comments A/G Ratio (test code = A/G Ratio) 1.1 1 0.7-1.6 [facility]annCHE[facility] CWJOZ4721-68-30 14:55:0016.8[facility] HermannCHEM PANEL 2018-05-23 14:55:00 Test Item Value Reference Range Interpretation Comments B/C Ratio (test code = B/C Ratio) 7 1 6-25 [facility]DR[facility] WRYYTJ6361-20-34 14:55:00Negative (05/23/18 9:55 AM)[facility] QIBGSD5093-60-85 14:55:00Negative (05/23/18 9:55 AM)[facility] UOSLJW6643-58-02 14:55:00Positive *ABN*(05/23/18 9:55 AM)[facility] VLKTAZ2465-47-70 14:55:00Negative (05/23/18 9:55 AM)[facility] YBZXAY0452-19-31 14:55:00Negative (05/23/18 9:55 AM)[facility]annDRUG SCREEN 2018-05-23 14:55:00See Note (05/23/18 9:55 AM)[facility]annDR[facility] SCREEN 2018-05-23 14:55:00Negative (05/23/18 9:55 AM)[facility]annDR[facility] SCREEN 2018-05-23 14:55:00Negative (05/23/18 9:55 AM)[facility]DR[facility] SCREEN 2018-05-23 14:55:00Negative (05/23/18 9:55 AM)[facility]annDR[facility] SCREEN 2018-05-23 14:55:00Positive *ABN*(05/23/18 9:55 AM)[facility]annDRUG SCREEN 2018-05-23 14:55:00See Note 2(05/23/18 9:55 AM)[facility]annDR[facility] SCREEN 2018-05-23 14:55:00See Note 1(05/23/18 9:55 AM)[facility]annHEMATOLOGY 2018-05-23 14:55:000.3[facility] PpkbwnuGYUFJJWOCN3126-42-81 14:55:000.1[facility] XghbpdnRLNFUWVEUT3192-39-00 14:55:003.9[facility] DjrkfxoERJKUBEMDE1769-53-64 14:55:001.3[facility] LxetxvcZAWQZVBLFW9510-57-58 14:55:000.5[facility] WQOLSONMWM3032-96-68 14:55:000.9[facility] MicrqzdNOXBZIPLUY9804-20-82 14:55:007.7 [facility] OlzggjzOMKQJTUNKA4567-40-59 14:55:004.3[facility]annHEMATOLOGY 2018-05-23 14:55:0022.0[facility] ZowjwykJGFBZQJQIH0706-39-95 14:55:0065.1[facility] UxjvhukLINCMJSOFL4934-22-61 14:55:00 Test Item Value Reference Range Interpretation Comments INR (test code = INR) 1.06 1 0.85-1.17 [facility] YhfmppxLDALLGOLMT4283-04-58 14:55:00 Test Item Value Reference Range Interpretation Comments PT (test code = PT) 13.8 s 12.0-14.7 [facility] QitfoqlJIDDFXBTZJ1931-26-92 14:55:00 Test Item Value Reference Range Interpretation Comments PTT (test code = PTT) 35.0 s 22.9-35.8 [facility] NgrlrtrWYYVGZQOAA7485-37-01 14:55:0018.1[facility]annHEMATOLOGY 2018-05-23 14:55:008.0[facility] WlautipVLPBGTSYRI4992-94-47 14:55:66439Pxnlwpaa XxtchfzRRNJIZFSFQ7219-83-78 14:55:0033.3[facility] JxlqnjeSZBKQKVZGB7749-99-50 14:55:004.54[facility] WdteknzGHTAJLABEY3108-12-39 14:55:006.1[facility] UXYKDQHOOW3348-68-65 14:55:0080.9[facility] GmkleabGTYSJKSYOV1743-47-35 14:55:00 36.7[facility] ZtvdupmYMGBHHITXI1050-92-50 14:55:00 Test Item Value Reference Range Interpretation Comments MCH (test code = MCH) 27.0 pg 27.0-31.0 [facility] LvptbooORSXVKDSHG1737-85-91 14:55:0012.2[facility] HermannIMMUNOLOGY 2018-05-23 14:55:00>8.0[facility] ZeovuteVYWZRPUKSW9597-02-33 14:55:00<0.91 [facility] DcmechuHYGDGGKBWA5938-47-96 14:55:00Non-Reactive *NA*(05/23/18 9:55 AM) [facility] HnjgwkiTPRMGPULWZ7372-18-64 14:55:00Negative (05/23/18 9:55 AM)[facility] VidtyyoCRSMBWZLVR7897-13-81 14:55:0018.2[facility] UblcmfnHLEIFLYBDE3583-50-38 14:55:007.8[facility] IgcokzkBQTTSBBHJX1374-21-11 14:55:009.5[facility] XNKLNUSYYR4352-53-10 14:55:0060.9[facility] WraydziINMJAHBGWV1872-28-85 14:55:00 3.6[facility] JaqvkfwLTPJCGUXAL7110-98-40 14:55:001.47[facility] HermannIMMUNOLOGY 2018-05-23 14:55:008.1[facility] HtmwpwbALCYEMINMK6379-77-28 14:55:000.77[facility] ChlwbgzADCPAUJZOY1429-64-52 14:55:004.93[facility] JfducioAPIOMTKKDX9932-02-38 14:55:000.29[facility] VirqldwYSXTSGGSNF6849-92-23 14:55:000.63[facility] LODPZDDYDA7721-60-02 14:55:002.18[facility] ZbxtdkzPMWTSTDIRE9890-69-30 14:55:00 89.85[facility] XgvpklaHLYYFJPEIY5661-54-96 14:55:40506.11[facility] HIUXJLSREM8594-02-29 14:55:00>8.0[facility] VzrtwtjARSLKMGUNJ6637-22-15 14:55:00<0.2[facility] XgpkrmzNXFMHOOQOX1524-70-13 14:55:000.2[facility] VOVONEXPZR6982-15-89 14:55:00Reactive *ABN*(05/23/18 9:55 AM)[facility] OYHZNLIZLU2852-91-53 14:55:00>8.0[facility] DvunaxxJSNZYTEGGP7127-23-23 14:55:004.5[facility] CvekvzqZRVTZYDHIO1812-76-70 14:55:00Negative *NA*(05/23/18 9:55 AM)[facility] MmcvzjqNVRGHOGRDN3828-19-96 14:55:00<0.2[facility] KPEKDISXQA3428-93-33 14:55:00Negative *NA*(05/23/18 9:55 AM)[facility] KCJIALRGHD9996-63-32 14:55:00Negative *NA*(05/23/18 9:55 AM)[facility] NSPELBAZSL7926-76-60 14:55:00Negative *NA*(05/23/18 9:55 AM)[facility] RDQXZW8650-73-94 14:55:00 Test Item Value Reference Range Interpretation Comments VLDL (test code = VLDL) 30 1 [facility] YwabifcIYODKT2185-60-31 14:55:0074[facility] IlpexyfYWFBKI9514-78-39 14:55:49002Reixoljq WvdfwmmQBSKNP8218-07-80 14:55:0072[facility] HermannLIPIDS 2018-05-23 14:55:16684Hyoevqxk VerurlfCBMFRU6884-54-00 14:55:00 Test Item Value Reference Range Interpretation Comments CHD Risk (test code = CHD Risk) 2.44 1 4.00-7.30 [facility] HermannPARATHYROID AZTODFM8565-09-78 14:55:17315.0[facility] SPECIAL HFCAPODGM0860-13-29 14:55:000.46[facility]annSPECIAL CHEMISTRY 2018-05-23 14:55:004.9[facility] HermannANEMIA CTXCZ5748-90-13 14:55:0035[facility] HermannANEMIA EGHJN7077-44-74 14:55:30113Orbamtia HermannANEMIA SODSP2579-91-46 14:55:73959Mngyghuy HermannANEMIA RPKHJ3912-59-61 14:55:0097[facility] ANEMIA KVYRS6664-40-14 14:55:92736Tkxtklvr HermannCHEM HBTYC7463-74-69 14:55:00 8.0[facility] HermannCHEM ZZCJM7998-78-78 14:55:002.5[facility] HermannCHEM PANEL 2018-05-23 14:55:0026.3[facility] HermannCHEM UJOKC3121-04-71 14:55:003.5[facility] HermannCHEM THCDG9717-11-77 14:55:007[facility] HermannCHEM UTMPH1092-76-38 14:55:0080[facility] HermannCHEM ULTZP0989-69-66 14:55:000.4[facility] HermannCHEM GNUEA5401-27-90 14:55:004.3[facility] HermannCHEM TFRCD6178-48-36 14:55:0022 [facility]annCHEM KUAEB7895-71-65 14:55:008.8[facility] HermannCHEM PANEL 2018-05-23 14:55:008.1[facility] HermannCHEM EEZME3680-91-87 14:55:0012[facility] HermannCHEM NWAKT7136-67-25 14:55:0026[facility] HermannCHEM MZBXY8764-60-93 14:55:0097[facility] HermannCHEM EABSC2476-12-19 14:55:003.8[facility] HermannCHEM OQPSK2369-64-50 14:55:008.22[facility] HermannCHEM OKFBT0069-98-58 14:55:03052 [facility]annCHEM ZJCCO1478-00-41 14:55:0059[facility] HermannCHEM PANEL 2018-05-23 14:55:0098[facility] HermannCHEM MFLAQ4911-76-21 14:55:003.8[facility] HermannCHEM GAMCF5576-91-16 14:55:00 Test Item Value Reference Range Interpretation Comments A/G Ratio (test code = A/G Ratio) 1.1 1 0.7-1.6 [facility]annCHEM DSSJS1197-27-87 14:55:0016.8[facility] HermannCHEM PANEL 2018-05-23 14:55:00 Test Item Value Reference Range Interpretation Comments B/C Ratio (test code = B/C Ratio) 7 1 - [facility]annDR[facility] TPAQNA8777-12-50 14:55:00Negative (05/23/18 9:55 AM)[facility]annDR[facility] JRNSCS2770-68-71 14:55:00Negative (05/23/18 9:55 AM)[facility] OMKANC9503-56-96 14:55:00Positive *ABN*(05/23/18 9:55 AM)[facility] FLPRQY7265-43-78 14:55:00Negative (05/23/18 9:55 AM)[facility]DR[facility] RXRBAR3916-22-47 14:55:00Negative (05/23/18 9:55 AM)[facility]annDRUG SCREEN 2018-05-23 14:55:00See Note (05/23/18 9:55 AM)[facility]annDR[facility] SCREEN 2018-05-23 14:55:00Negative (05/23/18 9:55 AM)[facility]annDR[facility] SCREEN 2018-05-23 14:55:00Negative (05/23/18 9:55 AM)[facility]annDR[facility] SCREEN 2018-05-23 14:55:00Negative (05/23/18 9:55 AM)[facility]annDR[facility] SCREEN 2018-05-23 14:55:00Positive *ABN*(05/23/18 9:55 AM)[facility]annDR[facility] SCREEN 2018-05-23 14:55:00See Note 2(05/23/18 9:55 AM)[facility] 2018-05-23 14:55:00See Note 1(05/23/18 9:55 AM)[facility] 2018-05-23 14:55:000.3[facility] QstfadsQTVVXYKFTZ8346-81-82 14:55:000.1[facility] QgwgrzcNUAVCTRFHJ1837-07-74 14:55:003.9[facility] QvjsxixZPRJNBYJSQ7762-18-84 14:55:001.3[facility] QovxqbgYYFEJUTCJP7281-40-13 14:55:000.5[facility] VVIKIROISG1631-01-93 14:55:000.9[facility] BskbajnOYVQCPJQFD7421-41-80 14:55:007.7 [facility] RxiwigkMQGNYMYJEW9296-59-42 14:55:004.3[facility]annHEMATOLOGY 2018-05-23 14:55:0022.0[facility] OybnzmhIXRXBALQBL9244-01-11 14:55:0065.1[facility] EvblqstHZUNRCSPQJ4193-58-78 14:55:00 Test Item Value Reference Range Interpretation Comments INR (test code = INR) 1.06 1 0.85-1.17 [facility] EwcgwfcUNBARFPXRY4650-08-23 14:55:00 Test Item Value Reference Range Interpretation Comments PT (test code = PT) 13.8 s 12.0-14.7 [facility] RpkaemxDDWGORXAMT1812-13-75 14:55:00 Test Item Value Reference Range Interpretation Comments PTT (test code = PTT) 35.0 s 22.9-35.8 [facility] UfnctimNLTFHCMFMR5427-99-43 14:55:0018.1[facility]annHEMATOLOGY 2018-05-23 14:55:008.0[facility] KcawcfmYAAXASTCJD1830-31-94 14:55:33111Zjcdlqzf LbaohgrSKXYNYFSYT7210-74-36 14:55:0033.3[facility] SotncquLPPUHGJOBS0432-76-73 14:55:004.54[facility] DhakvuhGBAYNVBGSG2639-68-11 14:55:006.1[facility] [place] ZDTTKNRGJG8928-73-79 14:55:0080.9[facility] IqnsfzqBSHYVJOLAX8735-08-53 14:55:00 36.7[facility] EgovfptSXOTNEVNGU1919-65-21 14:55:00 Test Item Value Reference Range Interpretation Comments MCH (test code = MCH) 27.0 pg 27.0-31.0 [facility] GfaaaeiCULKUKPBGS6844-73-46 14:55:0012.2[facility] HermannIMMUNOLOGY 2018-05-23 14:55:00>8.0[facility] ZgebzjgXVRZIOYZBO5668-57-39 14:55:00<0.91 [facility] VulyfnxTCPOMCRPIG9775-05-96 14:55:00Non-Reactive *NA*(05/23/18 9:55 AM) [facility] QvxgwoeNYSDWIWHFO2538-32-11 14:55:00Negative (05/23/18 9:55 AM)[facility] YtaulaaKKQKAUYNFT7621-14-55 14:55:0018.2[facility] EwyxnqeYTQNLCAHOD7272-05-78 14:55:007.8[facility] GvfynebMNQFLIEXTP8720-81-65 14:55:009.5[facility] EHMDTPCMHT2762-15-54 14:55:0060.9[facility] TqfsnvwVUAIQCTDDU1430-85-19 14:55:00 3.6[facility] ZiktwosYJYKGIHCSI3114-85-15 14:55:001.47[facility]annIMMUNOLOGY 2018-05-23 14:55:008.1[facility] IqpbnpuQCWQFBOUCJ3551-03-15 14:55:000.77[facility] NszggheQITZGSEYQO0188-84-21 14:55:004.93[facility] BukgxghWWCYSBXBFS4820-89-68 14:55:000.29[facility] VjlqrhbREHAKIISTJ0198-33-71 14:55:000.63[facility] [place] JCHPTCKYVL1944-50-48 14:55:002.18[facility] KtbtlfnMEVQKETYEP7326-24-97 14:55:00 89.85[facility] DrndeauYLKOMAGNWR0946-84-99 14:55:44303.11[facility] [place] CACJAHITXV0463-03-76 14:55:00>8.0[facility] HfiosbnCVOQJNOTXG7835-81-04 14:55:00<0.2[facility] FvtsyeuOFPSJBXUYR8999-60-78 14:55:000.2[facility] [place] WWLVQJWFMR2071-72-73 14:55:00Reactive *ABN*(05/23/18 9:55 AM)[facility] GAHJGKOWRA1632-60-79 14:55:00>8.0[facility] OmqbtoiEXFQTKCXML5308-16-62 14:55:004.5[facility] StuzgrjHDQOBIYTZF6829-96-33 14:55:00Negative *NA*(05/23/18 9:55 AM)[facility] PvzadjaJWVAUHUAPL3643-48-41 14:55:00<0.2[facility] [place] NSZXBPPEIB5271-90-66 14:55:00Negative *NA*(05/23/18 9:55 AM)[facility] EAVWPOZYFJ6125-18-34 14:55:00Negative *NA*(05/23/18 9:55 AM)[facility] ELBJUYHODU0207-52-46 14:55:00Negative *NA*(05/23/18 9:55 AM)[facility] TIDSAS4618-35-30 14:55:00 Test Item Value Reference Range Interpretation Comments VLDL (test code = VLDL) 30 1 [facility] TfcllrfDFKFYR7032-78-42 14:55:0074[facility] KxeejfhUBNTBO3579-02-91 14:55:98538Werzshkg NkamjkcXXBBZY7683-59-85 14:55:0072[facility] HermannLIPIDS 2018-05-23 14:55:95360Gkkhmyur MaekwvgYMNDXU8452-95-63 14:55:00 Test Item Value Reference Range Interpretation Comments CHD Risk (test code = CHD Risk) 2.44 1 4.00-7.30 [facility]annPARATHYROID PFPEJKE1930-95-42 14:55:98042.0[facility] SPECIAL YIHZBWVXU8143-88-07 14:55:000.46[facility]annSPECIAL CHEMISTRY 2018-05-23 14:55:004.9[facility]annCARDIAC JMCKXZJ0932-75-82 12:03:000.04 [facility]annCARDIAC CRRTYWY0263-42-93 12:03:0026[facility]annCARDIAC TEGMLJX8176-54-80 12:03:000.04[facility]annCARDIAC JAMNSQS4074-45-25 12:03:00 26[facility]annCARDIAC HTJJPVH7623-15-29 12:03:000.04[facility]annCARDIAC XJMCVPI6206-45-82 12:03:0026[facility]annCARDIAC SOGBCUH7248-32-88 07:54:00 0.02[facility]annCARDIAC HZXUQCA0699-60-50 07:54:0031[facility]annCHEM ONZQP1130-35-07 07:54:001.9[facility]annCHEM NMXEN9448-90-55 07:54:00 Test Item Value Reference Range Interpretation Comments B/C Ratio (test code = B/C Ratio) 6 1 6-25 [facility]annCHEM ESNLU9939-75-36 07:54:003.3[facility]annCHEM PANEL 2018-04-15 07:54:00 Test Item Value Reference Range Interpretation Comments A/G Ratio (test code = A/G Ratio) 0.9 1 0.7-1.6 [facility]annCHEM SRKMT8006-11-50 07:54:007.1[facility]annCHEM PANEL 2018-04-15 07:54:003.8[facility]annCHEM TOUMY3670-60-17 07:54:0018[facility]annCHEM LCUAA3635-29-50 07:54:0014[facility]annCHEM LKLCA1353-73-98 07:54:0082[facility]annCHEM XFEUE8763-79-30 07:54:000.5[facility]annCHEM OGCEQ8376-70-05 07:54:0010[facility]annCHEM DDNTT6028-34-24 07:54:003.2 [facility]annCHEM HWGIM8517-76-66 07:54:32643Nate[facility]x HermannCHEM PANEL 2018-04-15 07:54:0095[facility]annCHEM BLWCC2158-43-67 07:54:0034[facility]annCHEM IURQO5762-02-23 07:54:005.83[facility]annCHEM RBSFC5262-08-07 07:54:77751Hnmwqwdy HermannCHEM TLQBL5845-70-48 07:54:0023[facility]annCHEM GECGD8266-48-53 07:54:0015.2[facility]annCHEM DHWGG6820-22-11 07:54:008.5 [facility]annCHEM QBKXZ0437-18-76 07:54:004.2[facility] [facility] 2018-[facility]-15 07:54:001.5[facility] JwlgqnfZYWTKPMQRN5260-18-00 07:54:000.5[facility] WidowmfZDNNAQMHCA6049-09-25 07:54:001.0[facility] ZdycbyzYXAUAISMDL0096-96-71 07:54:003.5[facility] FmxbozbBBWWGLLQSU6566-45-94 07:54:000.1[facility] [place] FWAZMULIZS9156-84-92 07:54:000.2[facility] JcoqspcETGXGQJYBG1264-22-36 07:54:00 26.7[facility] FlrwbzoRJABQRJGTZ5848-62-92 07:54:0061.0[facility]annHEMATOLOGY 2018-04-15 07:54:008.0[facility] BixmdkoJAFYQMZOGW5846-57-47 07:54:003.3[facility] YhlgfqbUVGOSOUSFF4610-71-55 07:54:005.7[facility] MbtuthvPCMTEKWINL1693-79-12 07:54:004.48[facility] VrmvjarRFEGEQKLPI8274-79-08 07:54:0017.7[facility] [place] GVDEGXLXMB5630-37-76 07:54:99593Ckrhkksy SlsyhywRHTZYTNNWQ2370-05-05 07:54:007.2 [facility] OnjcchaTJXDGSLWZS6369-31-59 07:54:0011.6[facility]annHEMATOLOGY 2018-04-15 07:54:0035.5[facility] FqlkxknHMLWFJGXOM3325-32-83 07:54:0032.6[facility] HienrusGFUECHZFGN8159-63-57 07:54:0079.2[facility] MenoyfzKROCDLRPAI6060-09-27 07:54:00 Test Item Value Reference Range Interpretation Comments MCH (test code = MCH) 25.8 pg 27.0-31.0 [facility]ARDI[facility] LKYXIFP1735-88-02 07:54:000.02[facility]ann[facility]AC JFZPXXR1818-42-07 07:54:0031[facility]annCHEM FYLSW4928-56-23 07:54:001.9 [facility]CHE[facility] MYSGC2969-39-89 07:54:00 Test Item Value Reference Range Interpretation Comments B/C Ratio (test code = B/C Ratio) 6 1 6-25 [facility] UXICM2254-23-37 07:54:003.3[facility]annCHEM PANEL 2018-04-15 07:54:00 Test Item Value Reference Range Interpretation Comments A/G Ratio (test code = A/G Ratio) 0.9 1 0.7-1.6 [facility]CHE[facility] QGXBQ5063-10-81 07:54:007.1[facility]annCHEM PANEL 2018-04-15 07:54:003.8[facility]annCHE[facility] YRQHQ7954-98-59 07:54:0018[facility]annCHE[facility] GCNYU0236-92-50 07:54:0014[facility]annCHEM FWGQW3886-06-04 07:54:0082[facility]annCHE[facility] VSYXE3308-81-59 07:54:000.5[facility]annCHE[facility] TIUXF1537-92-27 07:54:0010[facility]annCHE[facility] PVICZ5901-43-07 07:54:003.2 [facility]annCHE[facility] NMYEI7791-85-57 07:54:40342Xuzfuvfm [facility]annCHEM PANEL 2018-04-15 07:54:0095[facility]annCHE[facility] OLFJG3970-13-47 07:54:0034[facility]annCHE[facility] CNGOQ9266-13-16 07:54:005.83[facility]annCHE[facility] NFKXA2629-93-13 07:54:76995Twxsriel HermannCHEM JEQYR4183-34-65 07:54:0023[facility]annCHE[facility] EBOBC0249-58-45 07:54:0015.2[facility]annCHE[facility] TEIPW0589-12-17 07:54:008.5 [facility]CHE[facility] XSPEO4564-66-15 07:54:004.2[facility]annHEMATOLOGY 2018-04-15 07:54:001.5[facility] NzritkrJPRJLAHWRB2966-27-49 07:54:000.5[facility] AcwgdvmRQEFQZGLXS4270-02-00 07:54:001.0[facility] MiyihcaXIZSDPWRUO2526-83-56 07:54:003.5[facility] RpjubdlBTGFEPQIJB5834-14-02 07:54:000.1[facility] [place] GSIUQOYIUX9189-34-22 07:54:000.2[facility] UvckiczPQBNCUAROE6694-71-17 07:54:00 26.7[facility] YkwokjyRWNJQTKETU9922-00-55 07:54:0061.0[facility]annHEMATOLOGY 2018-04-15 07:54:008.0[facility] VhkorfrPIWKSUSVCF1497-62-04 07:54:003.3[facility] XzvrblnTHZVOSBPUW6756-80-61 07:54:005.7[facility] TowzkzdSXNPKTMILL1110-96-50 07:54:004.48[facility] NcmshdvVWZMLYNREF4097-35-05 07:54:0017.7[facility] ITEKCOXHCL8375-94-82 07:54:48268Bangbqez GphmeorUXUETINMHA9245-98-22 07:54:007.2 [facility] FjnjilmLKCHGSULEA9212-77-50 07:54:0011.6[facility]annHEMATOLOGY 2018-04-15 07:54:0035.5[facility] PxslfniPXQVDMWTOI1291-48-40 07:54:0032.6[facility] AilgpxjJAEHRELGGF2750-64-79 07:54:0079.2[facility] ZqvpcglMHZDRXFDCJ8555-55-54 07:54:00 Test Item Value Reference Range Interpretation Comments MCH (test code = MCH) 25.8 pg 27.0-31.0 [facility]annCARDIAC AFEGOCZ8681-94-71 07:54:000.02[facility]annCARDIAC DDGXZME7127-00-75 07:54:0031[facility]annCHEM XCQEY6336-36-40 07:54:001.9 [facility]annCHEM KLHPH1432-94-76 07:54:00 Test Item Value Reference Range Interpretation Comments B/C Ratio (test code = B/C Ratio) 6 1 6-25 [facility]CHE[facility] MHQOC8671-09-73 07:54:003.3[facility]annCHEM PANEL 2018-04-15 07:54:00 Test Item Value Reference Range Interpretation Comments A/G Ratio (test code = A/G Ratio) 0.9 1 0.7-1.6 [facility]CHE[facility] QOAHG2602-80-80 07:54:007.1[facility]annCHEM PANEL 2018-04-15 07:54:003.8[facility]annCHEM JPGCW1386-01-63 07:54:0018[facility]annCHEM DWWMH2855-66-91 07:54:0014[facility]annCHEM ZIYJZ7347-89-32 07:54:0082[facility]annCHE[facility] FHMLA2360-75-05 07:54:000.5[facility]annCHEM IQTMX5263-08-26 07:54:0010[facility]annCHEM CEIGL5447-48-87 07:54:003.2 [facility]annCHE[facility] TPFTV0755-00-82 07:54:77587Vvfhshut [facility]annCHEM PANEL 2018-04-15 07:54:0095[facility]annCHEM OWWHX7532-14-71 07:54:0034[facility]annCHEM JZWYO5751-15-63 07:54:005.83[facility]annCHEM PCJIR8639-64-67 07:54:54272Nzvxxpug HermannCHEM YQYOV4482-36-05 07:54:0023[facility]annCHEM MJXZR7028-15-98 07:54:0015.2[facility]annCHE[facility] CXRQK6028-47-92 07:54:008.5 [facility]annCHE[facility] HEPXF3864-53-13 07:54:004.2[facility]annHEMATOLOGY 2018-04-15 07:54:001.5[facility] UucvjvbPACUORMRMO3474-05-44 07:54:000.5[facility] XjehybaSHDOZDQNRJ2106-69-42 07:54:001.0[facility] AmrufovYEOGREJLGY5859-48-18 07:54:003.5[facility] MuqgzjtUIBUXKKJTX8336-69-38 07:54:000.1[facility] UIPYNPXMGR0066-36-44 07:54:000.2[facility] AgzcefcKONUWIWXIQ2665-54-23 07:54:00 26.7[facility] QrbguckPEJSVZSSVE0156-40-02 07:54:0061.0[facility]annHEMATOLOGY 2018-04-15 07:54:008.0[facility] CnmzkquLYSRXPZNUK8278-14-59 07:54:003.3[facility] GonhjqgCHQOFKXTGZ2733-77-98 07:54:005.7[facility] YnxhtwiNTJCSDUQNI7159-86-39 07:54:004.48[facility] DjenaesLUQKFTZHKD9613-81-34 07:54:0017.7[facility] [place] MVBKAFCTTM8286-18-16 07:54:97149Phhujyfu XdtdoxuILZVFNHGYP3593-80-16 07:54:007.2 [facility] CykbwmiEJGEVXBDZT9409-99-41 07:54:0011.6[facility]annHEMATOLOGY 2018-04-15 07:54:0035.5[facility] BernsieWZUIVMGHSJ4392-70-01 07:54:0032.6[facility] ZcwsaltNHUQOXWYMM8839-74-98 07:54:0079.2[facility] FptpzrvNJECPIFSNB0932-13-29 07:54:00 Test Item Value Reference Range Interpretation Comments MCH (test code = MCH) 25.8 pg 27.0-31.0 [facility]annCARDIAC RDIVFNR4890-96-94 02:58:00<0.02[facility] [place] CARDIAC LSGMTEX8629-07-69 02:58:00<0.02[facility]annCARDIAC ENZYMES 2018-04-15 02:58:00<0.02[facility]annCARDIAC AOYSJUU5853-88-32 00:12:00 34731Lwvdwbhs [facility]CARD[facility]AC IPDCWWF8099-71-16 00:12:0037[facility]AC CIYWZMQ2936-57-98 00:12:001.0[facility]annCARDIAC CRWHGFI1439-16-22 00:12:00 Test Item Value Reference Range Interpretation Comments CK MB Index (test 2.7 1 See_Comment [Automate d message] The code = CK MB Index) system [facility] generated this result transmit emerson reference range : <=2.5. The reference range was not used to interpr et this result as erinn l/abnormal. [facility]CHEM XUUPT4565-55-72 00:12:0012[facility]annCHEM PANEL 2018-04-15 00:12:0088[facility]annCHEM UWWBX3501-18-36 00:12:0014[facility]annCHEM NJSXW8557-37-21 00:12:007.4[facility]annCHEM ZVUJO5905-07-04 00:12:000.5[facility]annCHEM QVXDY6159-73-05 00:12:0017[facility]annCHEM OEKEN6890-47-83 00:12:003.2[facility]annCHEM HXNIJ9573-05-03 00:12:008.1 [facility]annCHE[facility] QOGJM6415-14-86 00:12:81510Dakmlzuh HermannCHEM PANEL 2018-04-15 00:12:0026[facility]annCHEM MUWUX0586-48-11 00:12:004.94[facility]annCHEM NSPUV9675-14-12 00:12:0024[facility]annCHEM IIJMV2775-18-29 00:12:18711Awpzfiiz [facility]annCHEM JBNWE6376-31-31 00:12:00 Test Item Value Reference Range Interpretation Comments B/C Ratio (test code = B/C Ratio) 5 1 6-25 [facility]annCHE[facility] HGOLN5224-12-59 00:12:0012.3[facility]annCHEM PANEL 2018-04-15 00:12:00 Test Item Value Reference Range Interpretation Comments A/G Ratio (test code = A/G Ratio) 0.8 1 0.7-1.6 [facility]annCHE[facility] AYXLC4306-89-20 00:12:004.2[facility]annCHEM PANEL 2018-04-15 00:12:13455Fmuowvqy HermannCHEM RFOCK6711-93-94 00:12:003.3[facility] LkgpdbvIDMPVHMWZA4316-87-19 00:12:005.0[facility] EhnbdltEBNXMNXTSP4524-62-73 00:12:0017.6[facility] VdnrbclXZMSSDCFKU2178-53-35 00:12:0033.5[facility] LYZKEVSFXU0917-02-87 00:12:007.3[facility] IwhyrueKYRFQNBTPC9060-59-61 00:12:00 4.25[facility] GexrbcfGLQTTMRXQD4956-74-04 00:12:00 Test Item Value Reference Range Interpretation Comments MCH (test code = MCH) 26.0 pg 27.0-31.0 [facility] EboxqzlCUNCLZZGHZ5994-07-71 00:12:0077.5[facility]annHEMATOLOGY 2018-04-15 00:12:0033.0[facility] MjeusspTHQTMMXTCJ8954-75-24 00:12:0011.1[facility] QukjwfjAWYIEHWEDR1756-26-20 00:12:67269Awcxlsko QonohqkHQLUIIXDNK9886-21-79 00:12:003.6[facility] OzxjboxHERWJUJBEJ2754-79-94 00:12:000.9[facility] [place] RFZQEPZTZR1056-88-95 00:12:000.1[facility] DpwnekpKRJHMVAKMY8552-54-10 00:12:000.1 [facility] TzssyrmNKCGZWIZUE7292-57-87 00:12:000.4[facility]annHEMATOLOGY 2018-04-15 00:12:001.0[facility] JpilqazDSCHNCDPYS1901-33-61 00:12:002.0[facility] WyletceRSXUOBAZVE1104-18-07 00:12:001+ *ABN*(7/7/18 7:12 PM)[facility] XWOCKRCPEN5622-89-81 00:12:00Normal (04/14/18 7:12 PM)[facility]annHEMATOLOGY 2018-04-15 00:12:0017.2[facility] GpavtsrLODETAAGTN0258-66-23 00:12:0072.3[facility] KlxqchdCYEAHYRTAU7811-36-93 00:12:007.5[facility]annCARDIAC TMTLKRU3164-92-33 00:12:6451460Pndqzhei [facility]annCARDIAC SPEIIAE0062-80-31 00:12:0037[facility]annCARDIAC UEUPPRF1110-26-10 00:12:001.0[facility]annCARDIAC ENZYMES 2018-04-15 00:12:00 Test Item Value Reference Range Interpretation Comments CK MB Index (test 2.7 1 See_Comment [Automate d message] The code = CK MB Index) [facility] generated this result transmit emerson reference range : <=2.5. The reference range was not used to interpr et this result as erinn l/abnormal. [facility]annCHEM GJDDN9282-55-14 00:12:0012[facility]annCHEM PANEL 2018-04-15 00:12:0088[facility]annCHEM KMZHI7589-07-51 00:12:0014[facility]annCHEM DWEKR8368-77-69 00:12:007.4[facility]annCHEM AHLWE4152-01-72 00:12:000.5[facility]annCHEM PPDGH2149-57-76 00:12:0017[facility]annCHEM DENDT5630-10-70 00:12:003.2[facility]annCHEM WYMRN1967-38-96 00:12:008.1 [facility]annCHEM EDUWZ5187-15-98 00:12:89420Qutijrny HermannCHEM PANEL 2018-04-15 00:12:0026[facility]annCHEM WTSHM6941-08-29 00:12:004.94[facility]annCHEM VLDKK7053-40-51 00:12:0024[facility]annCHEM LOHRI6727-84-23 00:12:46315Sttpqqkj [facility]annCHEM SLLUQ4671-31-27 00:12:00 Test Item Value Reference Range Interpretation Comments B/C Ratio (test code = B/C Ratio) 5 1 6-25 [facility]annCHE[facility] FZKDZ5702-39-43 00:12:0012.3[facility]annCHEM PANEL 2018-04-15 00:12:00 Test Item Value Reference Range Interpretation Comments A/G Ratio (test code = A/G Ratio) 0.8 1 0.7-1.6 [facility]annCHEM OALLN4034-77-72 00:12:004.2[facility]annCHEM PANEL 2018-04-15 00:12:01090Pnaqsihc HermannCHEM TFRBM0356-68-35 00:12:003.3[facility] JowrkoyYNCPLMQFCI7250-92-92 00:12:005.0[facility] DhjbbgkGJYPPEDAWJ0865-10-43 00:12:0017.6[facility] UxwwwysXBWNRQQCPR5740-50-31 00:12:0033.5[facility] [place] JGLSOASMFR5988-17-51 00:12:007.3[facility] LtfirlhXXZNJCZQUL6578-70-57 00:12:00 4.25[facility] IrgzfhoLSCNGSOCQA6688-79-59 00:12:00 Test Item Value Reference Range Interpretation Comments MCH (test code = MCH) 26.0 pg 27.0-31.0 [facility] UaretzgDIPQAHCDPK9826-00-66 00:12:0077.5[facility]annHEMATOLOGY 2018-04-15 00:12:0033.0[facility] YrsonhkOQAAHNZNZC7754-24-72 00:12:0011.1[facility] ChtngzkYVLPARBXGR3027-73-57 00:12:68895Bxtsaann ElmkpctBWDWGKLRFJ1670-73-88 00:12:003.6[facility] OabuqmgSFFFGSMEUW9935-05-34 00:12:000.9[facility] OKNVJMKNLY4533-49-19 00:12:000.1[facility] AeamulwMNLQNMXDEG9105-89-93 00:12:000.1 [facility] McltzldYBWCNNURBP2739-88-73 00:12:000.4[facility]annHEMATOLOGY 2018-04-15 00:12:001.0[facility] LcmkwsvPJNIWHLIXO6525-64-11 00:12:002.0[facility] SqmfqpyCGWAQJEJLZ0932-73-85 00:12:001+ *ABN*(04/14/18 7:12 PM)[facility] [place] LPTRZLZRTV6598-92-90 00:12:00Normal (04/14/18 7:12 PM)[facility]annHEMATOLOGY 2018-04-15 00:12:0017.2[facility] ChfhldeWNYAADYESI5418-68-93 00:12:0072.3[facility] XobvqdfMAWCLEJBAP2052-20-36 00:12:007.5[facility]annCARDIAC KNSCTVO5183-95-19 00:12:2726598Zhidlxyv [facility]annCARDIAC WYDHXSO5506-17-69 00:12:0037[facility]annCARDIAC YWUYUPZ1472-63-65 00:12:001.0[facility]annCARDIAC ENZYMES 2018-04-15 00:12:00 Test Item Value Reference Range Interpretation Comments CK MB Index (test 2.7 1 See_Comment [Automate d message] The code = CK MB Index) [facility] generated this result transmit emerson reference range : <=2.5. The reference range was not used to interpr et this result as erinn l/abnormal. [facility]annCHEM SFGOR0304-50-25 00:12:0012[facility]annCHEM PANEL 2018-04-15 00:12:0088[facility]annCHEM KVHHL5268-10-96 00:12:0014[facility]annCHEM ZSTKX4320-63-95 00:12:007.4[facility]annCHEM BJDZN3177-78-34 00:12:000.5[facility]annCHEM LVROQ2428-82-00 00:12:0017[facility]annCHEM HFZFH7771-49-28 00:12:003.2[facility]annCHEM FNGVF9248-47-61 00:12:008.1 [facility]annCHEM SLGHH0044-22-55 00:12:73452Knhtgqsb [facility]annCHEM PANEL 2018-04-15 00:12:0026[facility]annCHEM YOVOI1338-98-82 00:12:004.94[facility]annCHEM AYZZZ3314-62-15 00:12:0024[facility]annCHEM ETCSZ0866-94-78 00:12:18589Juavuypn HermannCHEM ZLYAB1858-74-33 00:12:00 Test Item Value Reference Range Interpretation Comments B/C Ratio (test code = B/C Ratio) 5 1 6-25 [facility]annCHEM KCTNM8724-86-58 00:12:0012.3[facility]annCHEM PANEL 2018-04-15 00:12:00 Test Item Value Reference Range Interpretation Comments A/G Ratio (test code = A/G Ratio) 0.8 1 0.7-1.6 [facility]annCHEM PEHKR1798-42-42 00:12:004.2[facility]annCHEM PANEL 2018-04-15 00:12:41843Dokmcqmb [facility]annCHEM ZJMNQ2465-64-21 00:12:003.3[facility] YjpjwerYWUFQCLWOH2371-84-68 00:12:005.0[facility] WxjyuvrMFZIWQJONQ2702-78-23 00:12:0017.6[facility] AmizlctKZRPTPKDUR3761-60-94 00:12:0033.5[facility] JKOMWNERJN5313-57-51 00:12:007.3[facility] QosaycbZCZUUICQCT8177-74-71 00:12:00 4.25[facility] PwwlsctLUSFTMFFDU9255-61-36 00:12:00 Test Item Value Reference Range Interpretation Comments MCH (test code = MCH) 26.0 pg 27.0-31.0 [facility] IexrirdDGLNPXVLIT8165-98-42 00:12:0077.5[facility]annHEMATOLOGY 2018-04-15 00:12:0033.0[facility] IswquwiECFKVKONCG0990-36-15 00:12:0011.1[facility] YvqgkjnIMJWEJEURJ2204-74-23 00:12:86431Xggmraxi JbunpjzMJZCUCMHBD7740-08-26 00:12:003.6[facility] RtjbwwmVEFMPUHBGD0871-51-29 00:12:000.9[facility] [place] ICWXZULYSD0126-41-19 00:12:000.1[facility] GfjvijpSIOVEOGXCW2954-82-02 00:12:000.1 [facility] CaeosipZLTRAKJMUO2221-71-98 00:12:000.4[facility]annHEMATOLOGY 2018-04-15 00:12:001.0[facility] UkjvjkuBNVXEINFTJ2438-67-28 00:12:002.0[facility] UicydezAPVXDSUFEG3494-26-58 00:12:001+ *ABN*(04/14/18 7:12 PM)[facility] [place] [place] FDOAVTAYJK4532-44-53 00:12:00Normal (04/14/18 7:12 PM)[facility]annHEMATOLOGY 2018-04-15 00:12:0017.2[facility] FjdjtsjGJIGQPSUWA8277-48-44 00:12:0072.3[facility] SheuahxNJUNZMQSUZ3930-24-45 00:12:007.5[facility] HxtpkpzSANXIFJZDT2351-79-32 12:10:0017.4[facility] BajvxeaIIUVXUSYDR5236-47-77 12:10:0017.4[facility] OXUTHHWZCP1772-35-21 12:10:0017.4[facility] HermannCHEM OTCWM5638-01-04 08:01:00 2.1[facility] HermannCHEM SUAME2412-92-21 08:01:005.6[facility] HermannELECTROLYTES 2018-03-19 08:01:0017.3[facility] GimygzyCFOUOZLAYWKB8459-22-77 08:01:005[facility] IlmypnlQJYWRXCFKXGV1950-84-32 08:01:0094[facility] UnsfwscKCPGFQWQLTAL7930-53-10 08:01:0024[facility] NgfpibcTGMQEKVPEFDD3551-16-08 08:01:008.3[facility] [place] HWTPJMEZZMGH8390-59-44 08:01:79694Inzeurip NdgfaxbSDRBODBNPNNA7090-69-70 08:01:004.3[facility] ThzfpfdKGENMPBLFQUX4720-81-59 08:01:01207Gvqszhyx [place] YRECXXSQEZZD6109-76-66 08:01:0055[facility] NzfcldsTPIUUMTRSSDT2000-99-63 08:01:00 9.62[facility] YmchuspPGAWRSCGYS0896-35-93 08:01:000.3[facility]annHEMATOLOGY 2018-03-19 08:01:0010.9[facility] RecfannNPKBTBNVDX7145-61-96 08:01:0078.7[facility] HgfytilKYIKRUSGRE9988-05-86 08:01:008.8[facility] KfblofqCVPXWYZKFH5621-91-31 08:01:000.1[facility] VxshyneTVUGSWQJYY3589-77-22 08:01:000.9[facility] [place] DPXLEIBZVV9760-36-67 08:01:001.3[facility] DxhxxqfXDPUICDECH2108-74-78 08:01:001+ *ABN*(03/19/18 3:01 AM)[facility] VjcamvfYJYCFQBDIY4268-09-48 08:01:006.5[facility] LsbsecmXGPIPGQSNC4538-36-18 08:01:000.7[facility] JrbcdzvVSDCJLDOVG6793-42-68 08:01:007.9[facility] HbjqdquJJBNUQJBHE1636-50-69 08:01:47357Xzxzgfoz [place] SQYSLHPPEA9228-45-23 08:01:00 Test Item Value Reference Range Interpretation Comments MCH (test code = MCH) 26.4 pg 27.0-31.0 [facility] MpdkgjuVEGLCVFRFC2801-18-31 08:01:0015.4[facility]annHEMATOLOGY 2018-03-19 08:01:0034.2[facility] PnaamxsQBAQEJZVCV0699-82-76 08:01:002.99[facility] XfetlphKJTZDHBHMN5487-91-06 08:01:008.2[facility] YzgonnrNIEJCVWHWL9887-24-78 08:01:0023.1[facility] BjruibpSALJEOEFSQ7550-28-27 08:01:007.9[facility] [place] GUOQUMMHOI3275-34-81 08:01:0077.1[facility] HermannCHEM CRRZE8768-40-26 08:01:00 2.1[facility] HermannCHEM CXTHK8651-43-96 08:01:005.6[facility] HermannELECTROLYTES 2018-03-19 08:01:0017.3[facility] UshugzrSHEINVERQUZL3463-44-36 08:01:005[facility] BmiptgtRBHPDXMCGISX6658-73-01 08:01:0094[facility] TqsqzyoZZYWXWFVSEBD2049-96-01 08:01:0024[facility] BajrfaqSAGFWQVUNXPU5737-45-50 08:01:008.3[facility] [place] MHOWIJWLDRLG1634-91-32 08:01:32739Klrkvvxr WmpdybbSENECDACMEAB8323-79-68 08:01:004.3[facility] AxfjjcvRMLNNIWYZVMR8656-66-18 08:01:00166Mykhqnpu [place] ICDTEMYXRXOV2583-21-46 08:01:0055[facility] CcczwumRKWAXSIPHFCS7651-94-82 08:01:00 9.62[facility] TindtkwTGLDVAYPTJ2832-49-68 08:01:000.3[facility]annHEMATOLOGY 2018-03-19 08:01:0010.9[facility] QnzrxdmYPLAMZWJDB9434-56-69 08:01:0078.7[facility] ZkyhaioZUAAQCDVGJ1273-38-76 08:01:008.8[facility] GfodomzYRLEZNGRPM2612-58-00 08:01:000.1[facility] GhthlokHSTZSYOIKP0936-81-20 08:01:000.9[facility] [place] HJHPTWOUJP4170-88-26 08:01:001.3[facility] LxpkxabQMOIZAVXBD4932-20-56 08:01:001+ *ABN*(03/19/18 3:01 AM)[facility] DylgvipVEGYJFGKAU3474-93-10 08:01:006.5[facility] IhtsixdTWSZQSNDEM7934-83-74 08:01:000.7[facility] FvgcmbfEMRNULVQPW5243-33-63 08:01:007.9[facility] PsoaewjFDSTCIEIAR8278-01-25 08:01:69374Izpaymah [place] XXKKGICIAD4359-67-30 08:01:00 Test Item Value Reference Range Interpretation Comments MCH (test code = MCH) 26.4 pg 27.0-31.0 [facility] DieijfyLUFTLTVAGZ9883-29-01 08:01:0015.4[facility] HermannHEMATOLOGY 2018-03-19 08:01:0034.2[facility] FndoqoqYVZILQCVUX4566-01-22 08:01:002.99[facility] TyzfkugCDMKKGNHSK0911-82-24 08:01:008.2[facility] FwtmzqyMHBYXJSNUB7873-27-69 08:01:0023.1[facility] GldgpbqAXRJFMYACN9365-00-98 08:01:007.9[facility] RNGCXODDQP6483-15-82 08:01:0077.1[facility] HermannCHEM KAXCW7215-17-23 08:01:00 2.1[facility]annCHEM CPOQJ6947-54-23 08:01:005.6[facility] HermannELECTROLYTES 2018-03-19 08:01:0017.3[facility] JgpgwkvUFKLPGQLXUIX5046-83-30 08:01:005[facility] LcbnoktOVBLMAYTBUUS7970-07-24 08:01:0094[facility] WnohiwyITTEKPHVDRMK8784-70-20 08:01:0024[facility] WhcrdwwZPGJVMAKXVZK3113-68-64 08:01:008.3[facility] DWVKOHFYQIXO4469-75-38 08:01:36937Zwvzyntg BskyzytUOXSGMZZYBLP3768-78-98 08:01:004.3[facility] YajubcvRQODKHPHIOWA5336-28-45 08:01:69036Gogexfxk Marlo VISJKYWGZOBH2913-21-12 08:01:0055[facility] QoaajjcAITNCBWTGRLR5455-72-45 08:01:00 9.62[facility] IvkxntyFYEJXLQJFX5085-87-04 08:01:000.3[facility]annHEMATOLOGY 2018-03-19 08:01:0010.9[facility] KyagpraGXASBYVFBM0260-69-54 08:01:0078.7[facility] NlvzjelAPYGZUJPOB0684-19-10 08:01:008.8[facility] CwuxgqxAAJCYHOUYW2827-27-22 08:01:000.1[facility] EkebfpySWMVPPXHSX6682-90-65 08:01:000.9[facility] NFOLNWHBOJ8489-58-08 08:01:001.3[facility] CubplhsEHMGHVTLPK4975-63-59 08:01:001+ *ABN*(03/19/18 3:01 AM)[facility] ApfwpnzOLYEASTONJ5871-50-30 08:01:006.5[facility] VavgrbcEIQLLTYBOQ8975-85-20 08:01:000.7[facility] WqhrxhlFAWFVLCYNE9667-06-76 08:01:007.9[facility] QbkgreiNRUJPYDVIS4146-07-40 08:01:12649Cur[place]nkf [place] TLFKEFFXXK3613-86-39 08:01:00 Test Item Value Reference Range Interpretation Comments MCH (test code = MCH) 26.4 pg 27.0-31.0 [facility] ZdmjwjjZLTIDVCLZB9430-86-73 08:01:0015.4[facility]annHEMATOLOGY 2018-03-19 08:01:0034.2[facility] KnzxayvRYYYQSQEPO3480-00-59 08:01:002.99[facility] WjjguzrPKZBFSEMCK8188-25-67 08:01:008.2[facility] LnllcrsFTUVCTJAXH8665-50-76 08:01:0023.1[facility] SmzyiujYUOLZWMNSU4500-89-05 08:01:007.9[facility] [place] NXTFWINKXD0628-61-70 08:01:0077.1[facility] HermannCHEM FAXWC7570-99-96 08:29:00 2.3[facility] HermannCHEM GMEIA7666-62-49 08:29:006[facility]annCHEM PANEL 2018-03-18 08:29:000.4[facility]annCHEM YSHJX3145-23-02 08:29:004.0[facility]annCHEM HLPBU8484-62-12 08:29:49172Naxmwsdr HermannCHEM WNZFJ7376-29-49 08:29:0050[facility]annCHEM FERYS2033-21-04 08:29:85754Ijfffccx HermannCHEM XEDQI9387-49-04 08:29:008.40[facility]annCHEM EKLFV7937-74-16 08:29:0097 [facility] HermannCHEM JRCFA5806-21-12 08:29:78450Lbedlbcr HermannCHEM PANEL 2018-03-18 08:29:002.7[facility] HermannCHEM WWNTG4126-02-41 08:29:006.9[facility] HermannCHEM ZOOTY4129-47-26 08:29:008.0[facility]annCHEM YPUYJ4593-37-24 08:29:0026[facility]annCHEM HJPBW4818-74-93 08:29:009[facility]annCHEM RGXSB8609-03-73 08:29:0012[facility]annCHEM ZNECF8761-14-81 08:29:00 Test Item Value Reference Range Interpretation Comments B/C Ratio (test code = B/C Ratio) 6 1 6-25 [facility] HermannCHEM YYWUG8395-35-27 08:29:0014.0[facility] HermannCHEM PANEL 2018-03-18 08:29:004.2[facility]annCHEM ZFQSU0121-61-32 08:29:00 Test Item Value Reference Range Interpretation Comments A/G Ratio (test code = A/G Ratio) 0.6 1 0.7-1.6 [facility] NCMXD7197-83-77 08:29:005.7[facility]annHEMATOLOGY 2018-03-18 08:29:00 Test Item Value Reference Range Interpretation Comments INR (test code = INR) 1.23 1 0.85-1.17 [facility] HospitalFuhhtowLKHEIBVTXI9265-55-14 08:29:00 Test Item Value Reference Range Interpretation Comments PTT (test code = PTT) 42.0 s 22.9-35.8 [facility] HospitalLwkhopsTTZAIVFPQZ0391-06-61 08:29:00 Test Item Value Reference Range Interpretation Comments PT (test code = PT) 15.6 s 12.0-14.7 [facility] HospitalJkjwgdrMJGCXXFBVX5592-58-11 08:29:001+ *ABN*(03/18/18 3:29 AM)[facility] HospitalZxojkzfMLUBCKZLNM1193-43-73 08:29:001.0[facility] MdomvjhHHSVIKAUNE1086-05-08 08:29:000.1[facility] NolmxzdSBZJMZGRZT8862-97-16 08:29:000.9[facility] WJOFNCQAXJ4756-92-52 08:29:005.0[facility] VhqygveTXLIXMZNZI4409-92-22 08:29:001.6 [facility] IshtegeCZXZBOQTIK4894-15-66 08:29:0013.3[facility]annHEMATOLOGY 2018-03-18 08:29:000.5[facility] YhvgqluMGJQKQQWBH9747-16-03 08:29:0013.9[facility] TyqbpuyLEQZGUXXDA8793-22-78 08:29:0070.7[facility] ZckskmzYKHDTPOMLD4701-37-76 08:29:58592Xczdrsmo ZwkxoviYBQKRIKMSR0361-72-70 08:29:007.9[facility] [place] NPALEESYMI9543-81-88 08:29:0033.8[facility] KoaeldsRKBENHDEJA3178-70-95 08:29:00 15.0[facility] HldgqtuGAJXQBRPWB2847-34-58 08:29:0021.8[facility]annHEMATOLOGY 2018-03-18 08:29:0077.9[facility] MueeqotLFKCTUTLTH5769-10-92 08:29:00 Test Item Value Reference Range Interpretation Comments MCH (test code = MCH) 26.3 pg 27.0-31.0 [facility] TgblfozIBQWMLSKBE2475-78-95 08:29:002.80[facility]annHEMATOLOGY 2018-03-18 08:29:007.4[facility] LmabkjbQJINCRYLAB3262-82-79 08:29:007.1[facility] HermannCHEM NDVGF3414-90-39 08:29:002.3[facility] HermannCHEM WRWCN2747-12-50 08:29:006[facility]annCHEM QYPCC7160-85-89 08:29:000.4[facility]annCHEM PJSEW9101-79-13 08:29:004.0[facility] HermannCHEM KXNRC8789-97-39 08:29:36772 [facility]annCHEM OUIBG6292-58-18 08:29:0050[facility]annCHEM PANEL 2018-03-18 08:29:72759Mouvqxki HermannCHEM KWWBP3606-55-08 08:29:008.40[facility]annCHEM ELEIF7295-69-11 08:29:0097[facility] HermannCHEM USSEE8669-22-11 08:29:63562Gozkcrrw HermannCHEM EFCGS7274-13-29 08:29:002.7[facility] HermannCHEM RPEAD1371-30-51 08:29:006.9[facility] HermannCHEM GOUUJ4385-51-03 08:29:008.0 [facility] HermannCHEM RHLXJ4450-38-27 08:29:0026[facility] HermannCHEM PANEL 2018-03-18 08:29:009[facility]annCHEM GXGDK6426-66-96 08:29:0012[facility]annCHEM EECAP3631-70-13 08:29:00 Test Item Value Reference Range Interpretation Comments B/C Ratio (test code = B/C Ratio) 6 1 6-25 [facility] ZZWKV6204-75-35 08:29:0014.0[facility]annCHEM PANEL 2018-03-18 08:29:004.2[facility] DVRHC7938-85-51 08:29:00 Test Item Value Reference Range Interpretation Comments A/G Ratio (test code = A/G Ratio) 0.6 1 0.7-1.6 [facility]2018-06-10 08:29:005.7[facility] HospitalannHEMATOLOGY 2018-03-18 08:29:00 Test Item Value Reference Range Interpretation Comments INR (test code = INR) 1.23 1 0.85-1.17 [facility] HospitalFtkupccTOMWIGSEJA6973-34-13 08:29:00 Test Item Value Reference Range Interpretation Comments PTT (test code = PTT) 42.0 s 22.9-35.8 [facility] HospitalImhayrnTGMXVXFLQD8750-47-11 08:29:00 Test Item Value Reference Range Interpretation Comments PT (test code = PT) 15.6 s 12.0-14.7 [facility]PfqvqgjVWQSFAOXUB1298-14-71 08:29:001+ *ABN*(03/18/18 3:29 AM)[facility] HospitalYkxmsseNIIJACZWUF5966-89-71 08:29:001.0[facility] IojozwmJISNSMFUYV3675-15-84 08:29:000.1[facility] XyyzdwzVRMFJICTBP0596-81-58 08:29:000.9[facility] XQHCIUAZSB3568-98-96 08:29:005.0[facility] JkkxzfeGOTEPBPSMT5855-46-75 08:29:001.6 [facility] RvrpzdgGTYNXBGGNE0594-28-16 08:29:0013.3[facility]annHEMATOLOGY 2018-03-18 08:29:000.5[facility] YefwybkWZYKGVYPRO0238-79-61 08:29:0013.9[facility] KdnszkxCNFBWIXQHI1380-77-23 08:29:0070.7[facility] AvktmdnPNPWCZSFXJ8284-23-75 08:29:92672Dflzmjyr UwynvwlUEFNDVKTGF5646-74-26 08:29:007.9[facility] RBICGVEOCD0663-67-44 08:29:0033.8[facility] XwrxmbtCUMKBHKULP0240-50-37 08:29:00 15.0[facility] NciohgkKBQTLONUAU3271-57-11 08:29:0021.8[facility]annHEMATOLOGY 2018-03-18 08:29:0077.9[facility] BljbtspNZHMYRKEEC9001-28-28 08:29:00 Test Item Value Reference Range Interpretation Comments MCH (test code = MCH) 26.3 pg 27.0-31.0 [facility] NfgrfopRSIMNJRYHR7322-10-51 08:29:002.80[facility]annHEMATOLOGY 2018-03-18 08:29:007.4[facility] FykhjtuINKKTGEXQJ3064-14-86 08:29:007.1[facility]annCHEM OGIIL4272-24-12 08:29:002.3[facility] HermannCHEM NEIKM4452-54-57 08:29:006[facility]annCHEM QTDYT8649-08-78 08:29:000.4[facility]annCHEM RCDAR1444-48-07 08:29:004.0[facility]annCHEM CETDA5291-39-28 08:29:79172 [facility]annCHEM BDWME4494-98-26 08:29:0050[facility]annCHEM PANEL 2018-03-18 08:29:43203Julfochh HermannCHEM AUSPB6507-10-97 08:29:008.40[facility]annCHEM CQQME4287-08-08 08:29:0097[facility]annCHEM SDDIG6195-32-10 08:29:85507Kzjgluvp HermannCHEM FHOMT0667-30-23 08:29:002.7[facility]annCHEM ABHUW4825-68-23 08:29:006.9[facility]annCHEM MUKNT6573-28-00 08:29:008.0 [facility] HermannCHEM SCWHQ9634-39-82 08:29:0026[facility]annCHEM PANEL 2018-03-18 08:29:009[facility]annCHEM JUHCU8503-52-46 08:29:0012[facility]annCHEM NXIHS8061-99-72 08:29:00 Test Item Value Reference Range Interpretation Comments B/C Ratio (test code = B/C Ratio) 6 1 6-25 [facility] ZYNFY0582-50-84 08:29:0014.0[facility]annCHEM PANEL 2018-03-18 08:29:004.2[facility]annCHEM JYJWH8312-48-71 08:29:00 Test Item Value Reference Range Interpretation Comments A/G Ratio (test code = A/G Ratio) 0.6 1 0.7-1.6 [facility]annH[facility]ENTERHRGZB2120-77-60 08:29:005.7[facility]HE[facility] 2018-03-18 08:29:00 Test Item Value Reference Range Interpretation Comments INR (test code = INR) 1.23 1 0.85-1.17 [facility] HospitalWrteageISODQMFUCS2158-89-38 08:29:00 Test Item Value Reference Range Interpretation Comments PTT (test code = PTT) 42.0 s 22.9-35.8 [facility] HospitalLxntvxxHYYHEMAKVI2504-47-72 08:29:00 Test Item Value Reference Range Interpretation Comments PT (test code = PT) 15.6 s 12.0-14.7 [facility] HospitalLcplcamQVUHNUEYDE2111-67-25 08:29:001+ *ABN*(03/18/18 3:29 AM)[facility] QzntlraAFAMBZPRLY1384-02-27 08:29:001.0[facility] KkxcbgdQZAXWEWRPY2483-41-32 08:29:000.1[facility] MaxfknhYEUCEFRARH7254-56-82 08:29:000.9[facility] [place] [place] PELWDCINVC6470-47-32 08:29:005.0[facility] JnzpvbgGGBGDWIGNP9516-08-47 08:29:001.6 [facility] SdhhyklAYDBAAJFJH8656-24-46 08:29:0013.3[facility]annHEMATOLOGY 2018-03-18 08:29:000.5[facility] SkeydfzRQXBWDDCHE6066-64-45 08:29:0013.9[facility] LufjbboWAPKFGTRDP4610-36-77 08:29:0070.7[facility] ZmlgyqyFJOPNLWQMM4865-89-16 08:29:17570Edhsvbwh OcfkwcjXINYLYWVVW4429-67-15 08:29:007.9[facility] [place] [place] CUGDXNMGUR1456-76-67 08:29:0033.8[facility] RlpdzdlABRSBZGDYQ7095-48-08 08:29:00 15.0[facility] JafdztgOGXPOJCCVU8809-16-03 08:29:0021.8[facility]annHEMATOLOGY 2018-03-18 08:29:0077.9[facility] ZhxneerNZBEKYCLJU6336-94-68 08:29:00 Test Item Value Reference Range Interpretation Comments MCH (test code = MCH) 26.3 pg 27.0-31.0 [facility] ZwdcxvgIAYJWVMNSX7099-80-05 08:29:002.80[facility]annHEMATOLOGY 2018-03-18 08:29:007.4[facility] NjkleahVKMNLMZGBK0930-11-00 08:29:007.1[facility] RbfcxamRQNBFQTBYU4112-30-69 21:57:0018.3[facility] PthwjppGICMASPUKB3367-00-99 21:57:0018.3[facility] YezanldMXRVEGYHBE7008-90-77 21:57:0018.3[facility] [place] [place] CHEM PAVGK9340-19-85 13:00:000.3[facility] HggwewoRBAOFFRCJS3283-17-63 13:00:00 Negative *NA*(03/17/18 8:00 AM)[facility]annCHEM WXRYP0881-96-18 13:00:000.3 [facility] BfyerlxMIJHDTBREC6037-81-38 13:00:00Negative *NA*(03/17/18 8:00 AM) [facility]annCHEM SNQYJ0068-46-68 13:00:000.3[facility] HermannIMMUNOLOGY 2018-03-17 13:00:00Negative *NA*(03/17/18 8:00 AM)[facility]annCHEM PANEL 2018-03-17 11:05:000.3[facility] HermannCHEM UHXFJ6547-42-48 11:05:000.3[facility] HermannCHEM LXHHL2036-70-57 11:05:000.3[facility] HermannCARDIAC NAKRQYS2339-62-91 08:09:00 Test Item Value Reference Range Interpretation Comments CK MB Index (test 1.2 1 See_Comment [Automate d message] The code = CK MB Index) [facility] generated this result transmit emerson reference range : <=2.5. The reference range was not used to interpr et this result as erinn l/abnormal. [facility]annCARDIAC PWFHGMK9331-88-28 08:09:84973Znoaasfw HermannCARDIAC NEFGXGL4421-97-86 08:09:7694296Pltglbth HermannCARDIAC EJUSUWK7813-68-83 08:09:001.5[facility] HermannCARDIAC OEJPQMG4229-52-72 08:09:00<0.02[facility] HermannCHEM CLZER3663-61-83 08:09:0033.0[facility]annCHEM JAOCU9310-95-56 08:09:004[facility]annCHEM PBVTU8560-02-92 08:09:0089[facility]annCHEM JQVKB3832-37-63 08:09:0093[facility]annCHEM AWADK8078-08-57 08:09:004.1 [facility]annCHEM LTQEE4574-00-49 08:09:00 Test Item Value Reference Range Interpretation Comments A/G Ratio (test code = A/G Ratio) 0.7 1 0.7-1.6 [facility]annCHEM TKZDL0966-80-87 08:09:00 Test Item Value Reference Range Interpretation Comments B/C Ratio (test code = B/C Ratio) 7 1 6-25 [facility]annCHEM TDFML0317-39-96 08:09:0020.4[facility] HermannCHEM PANEL 2018-03-17 08:09:000.4[facility] HermannCHEM VAGWV0580-14-03 08:09:0011[facility]annCHEM PFBXM5270-23-81 08:09:0010[facility]annCHEM TKRLQ4176-55-38 08:09:002.7[facility] HermannCHEM OKGSK2260-90-93 08:09:0021[facility] HermannCHEM BUTCF3010-21-47 08:09:006.8[facility] HermannCHEM KYZUE5332-64-76 08:09:007.5 [facility]annCHEM CPKOU0208-70-19 08:09:13048Hzgnhmue HermannCHEM PANEL 2018-03-17 08:09:004.4[facility] HermannCHEM SBLVA0691-93-96 08:09:0012.50[facility]annCHEM WTEUI3081-36-21 08:09:0085[facility]annCHEM OVHUU3860-97-92 08:09:64157Lojdvbqi HermannCHEM WHYZY7223-41-93 08:09:001.9[facility] HermannCHEM VQKRE6839-60-44 08:09:0065[facility]annCHEM ZMFWP1892-07-05 08:09:007.5 [facility] NalsddwSBWHZORPQR6632-25-29 08:09:000.8[facility] HermannHEMATOLOGY 2018-03-17 08:09:000.5[facility] OcpwqgpLMEWZKKMYZ5998-85-53 08:09:000.7[facility] ZcbiyqmLXJSCBSJIP0815-20-65 08:09:000.5[facility] ZtbqknnDRGSNFPZYG9035-97-23 08:09:007.4[facility] OckiqanFEVMSRZZAX4692-13-61 08:09:001+ *ABN*(03/17/18 3:09 AM) [facility] PcbmtmbLYHAWGWEGP2404-38-87 08:09:007.7[facility] HermannHEMATOLOGY 2018-03-17 08:09:009.3[facility] YuedyxnVHFSMCLZCL4110-38-61 08:09:0082.0[facility] BdbnwjmMCWXWUECIR8270-11-91 08:09:00 Test Item Value Reference Range Interpretation Comments INR (test code = INR) 1.26 1 0.85-1.17 [facility] UxcuwrbBYEKNPDTOY4863-62-78 08:09:00 Test Item Value Reference Range Interpretation Comments PT (test code = PT) 15.9 s 12.0-14.7 [facility] VrneixyRQHSWWSRFW8673-52-44 08:09:00 Test Item Value Reference Range Interpretation Comments MCH (test code = MCH) 26.4 pg 27.0-31.0 [facility] WcqutguSVXVJBAJND4786-05-88 08:09:0077.8[facility] HermannHEMATOLOGY 2018-03-17 08:09:0022.2[facility] VurgpwvMQNZENAHOS5712-97-07 08:09:007.5[facility] InzclzvUPVJKWZJUQ4221-61-78 08:09:009.0[facility] JubgvyyCTHPTMIHUS9810-96-19 08:09:002.86[facility] NmbpislQBJISZSPAJ1226-79-54 08:09:007.4[facility] [place] [place] FUNFUIJCSS6207-94-74 08:09:02040Nnlgexzv BgnsbfvIBTRSWTTUP9754-28-04 08:09:00 15.1[facility] NigvlpiSWHSVMWWPK2823-79-95 08:09:0034.0[facility] HermannCARDIAC TCWTMFP4744-87-98 08:09:00 Test Item Value Reference Range Interpretation Comments CK MB Index (test 1.2 1 See_Comment [Automate d message] The code = CK MB Index) [facility] generated this result transmit emerson reference range : <=2.5. The reference range was not used to interpr et this result as erinn l/abnormal. [facility]annCARDIAC CUTWBXK7045-68-29 08:09:66247Badvyeio HermannCARDIAC CJUIWEA4511-23-41 08:09:1869039Akqnhdbb HermannCARDIAC LBYHAEI7924-64-61 08:09:001.5[facility] HermannCARDIAC YTARYJH1527-09-65 08:09:00<0.02[facility] HermannCHEM WLBUW9467-29-78 08:09:0033.0[facility] HermannCHEM MWHDM5866-51-44 08:09:004[facility] HermannCHEM LCFFP0597-66-13 08:09:0089[facility]annCHEM DWOJF1999-21-60 08:09:0093[facility] HermannCHEM OZMII5896-62-21 08:09:004.1 [facility]annCHEM DXNKN8678-87-94 08:09:00 Test Item Value Reference Range Interpretation Comments A/G Ratio (test code = A/G Ratio) 0.7 1 0.7-1.6 [facility]annCHEM PYTIA4415-93-36 08:09:00 Test Item Value Reference Range Interpretation Comments B/C Ratio (test code = B/C Ratio) 7 1 6-25 [facility]annCHEM TJOAG0527-68-91 08:09:0020.4[facility] HermannCHEM PANEL 2018-03-17 08:09:000.4[facility] HermannCHEM MZPAK3717-00-69 08:09:0011[facility]annCHEM FSBLA1889-86-26 08:09:0010[facility] HermannCHEM IOUYG7220-64-85 08:09:002.7[facility]annCHEM FACBR9520-71-47 08:09:0021[facility]annCHEM MMRTK7901-68-62 08:09:006.8[facility]annCHEM HEHSX4743-23-08 08:09:007.5 [facility]annCHEM MISYZ3558-10-20 08:09:81127Dwlvddvz HermannCHEM PANEL 2018-03-17 08:09:004.4[facility] HermannCHEM GUBRL4121-62-18 08:09:0012.50[facility] HermannCHEM BJHGJ9645-30-10 08:09:0085[facility]annCHEM AXCTK5004-64-68 08:09:36397Xkdcmlyv HermannCHEM UDKMF0202-64-60 08:09:001.9[facility] HermannCHEM KETBV8034-19-17 08:09:0065[facility] HermannCHEM TXOZN3754-71-93 08:09:007.5 [facility] HnkgopcCNGMPCZOHD1412-61-78 08:09:000.8[facility] HermannHEMATOLOGY 2018-03-17 08:09:000.5[facility] GbeyuuuRZMIMBAYCI6477-56-39 08:09:000.7[facility] XpvqtwsDZXDCLMLAE6854-76-28 08:09:000.5[facility] KnuqxhmXMCDATQVQX2182-58-02 08:09:007.4[facility] YpscjyjVCGQLCLPKD6772-52-67 08:09:001+ *ABN*(03/17/18 3:09 AM) [facility] WfmbnquDCPJYYJZCP6116-85-33 08:09:007.7[facility] HermannHEMATOLOGY 2018-03-17 08:09:009.3[facility] MbefpegDBHMJVDHOV5334-14-63 08:09:0082.0[facility] BvfmqyvZJXWLFGJBA6607-97-80 08:09:00 Test Item Value Reference Range Interpretation Comments INR (test code = INR) 1.26 1 0.85-1.17 [facility] JiavmmvFYMDLLFERR0199-87-16 08:09:00 Test Item Value Reference Range Interpretation Comments PT (test code = PT) 15.9 s 12.0-14.7 [facility] XcirtxrGHWBWGNGIX8237-77-12 08:09:00 Test Item Value Reference Range Interpretation Comments MCH (test code = MCH) 26.4 pg 27.0-31.0 [facility] DyeebrwWFOCVKCAJM5564-16-05 08:09:0077.8[facility] HermannHEMATOLOGY 2018-03-17 08:09:0022.2[facility] IhvpmaqYOGQSOESFE5893-74-94 08:09:007.5[facility] PbtjqcvRHBJYCIXPV0332-18-45 08:09:009.0[facility] WlxowngBTQPMNMQYQ8733-42-87 08:09:002.86[facility] DemqorsVDMIJZGCDY3708-16-39 08:09:007.4[facility] [place] REVWDJSODJ9324-93-29 08:09:07027Ekepobqz CbwqpkdQFPQFMWSPZ6074-72-27 08:09:00 15.1[facility] JzhpeliELGFBDWVAM5521-82-10 08:09:0034.0[facility] HermannCARDIAC NPLPIYQ4357-80-69 08:09:00 Test Item Value Reference Range Interpretation Comments CK MB Index (test 1.2 1 See_Comment [Automate d message] The code = CK MB Index) [facility] generated this result transmit emerson reference range : <=2.5. The reference range was not used to interpr et this result as erinn l/abnormal. [facility]annCARDIAC WQKHHGH1825-87-37 08:09:03290Rtzvixhh HermannCARDIAC OEDYFKG9077-56-54 08:09:8452787Udufuvsd HermannCARDIAC YNQXKBZ2926-45-72 08:09:001.5[facility] HermannCARDIAC LQJXYIW3186-47-13 08:09:00<0.02[facility] HermannCHEM IIMDK1318-99-21 08:09:0033.0[facility] HermannCHEM ODFDS0233-06-22 08:09:004[facility] HermannCHEM BEJJO7458-41-88 08:09:0089[facility] HermannCHEM ABAVS9862-37-90 08:09:0093[facility] HermannCHEM OIWHF9651-31-22 08:09:004.1 [facility]annCHEM IGXYK3794-85-95 08:09:00 Test Item Value Reference Range Interpretation Comments A/G Ratio (test code = A/G Ratio) 0.7 1 0.7-1.6 [facility]annCHEM CCOHK9262-06-33 08:09:00 Test Item Value Reference Range Interpretation Comments B/C Ratio (test code = B/C Ratio) 7 1 6-25 [facility]annCHEM KJIQC5723-06-07 08:09:0020.4[facility] HermannCHEM PANEL 2018-03-17 08:09:000.4[facility] HermannCHEM BQCNH4275-62-98 08:09:0011[facility] HermannCHEM JMYIM0279-54-43 08:09:0010[facility] HermannCHEM SXQYL9005-07-47 08:09:002.7[facility] HermannCHEM JUKHM0650-88-05 08:09:0021[facility] HermannCHEM FXIFD4127-36-98 08:09:006.8[facility] HermannCHEM PNMOW0970-64-04 08:09:007.5 [facility]annCHEM FEUZM4704-85-43 08:09:44829Oapxlukg HermannCHEM PANEL 2018-03-17 08:09:004.4[facility] HermannCHEM OONKR0638-68-58 08:09:0012.50[facility] HermannCHEM ZUNUC7755-04-43 08:09:0085[facility] HermannCHEM CXWBD7930-60-71 08:09:84910Husaymas HermannCHEM VWYFX2501-31-15 08:09:001.9[facility] HermannCHEM SIMDJ5914-07-36 08:09:0065[facility] HermannCHEM BHXWN5830-78-05 08:09:007.5 [facility] ZqkflbiFWCETWCXIU6657-77-02 08:09:000.8[facility] HermannHEMATOLOGY 2018-03-17 08:09:000.5[facility] FlxssynXDHEJDFIVQ8574-44-39 08:09:000.7[facility] ZdyefomBSISTWRMDU0075-21-04 08:09:000.5[facility] PejeskwFPRAVOYOUE1823-71-43 08:09:007.4[facility] FrldovgAIYVUBSUGN2000-20-98 08:09:001+ *ABN*(03/17/18 3:09 AM) [facility] WorhxzpCSEHIXAGMH1390-68-13 08:09:007.7[facility] HermannHEMATOLOGY 2018-03-17 08:09:009.3[facility] WpatymlIQIYPSEUJR9160-49-83 08:09:0082.0[facility] DkqbiwlKZMAAXPKQK3157-21-00 08:09:00 Test Item Value Reference Range Interpretation Comments INR (test code = INR) 1.26 1 0.85-1.17 [facility] IqmvsmlEFSHRYPAMN0199-23-10 08:09:00 Test Item Value Reference Range Interpretation Comments PT (test code = PT) 15.9 s 12.0-14.7 [facility] BvwnhfsTGTVQPXIBX5648-47-91 08:09:00 Test Item Value Reference Range Interpretation Comments MCH (test code = MCH) 26.4 pg 27.0-31.0 [facility] OqwjjikNFGDHEVRTI5532-17-10 08:09:0077.8[facility] HermannHEMATOLOGY 2018-03-17 08:09:0022.2[facility] TqyfnrxJCIOHKDXCV4713-72-16 08:09:007.5[facility] ZomtvwqGRZLSKKYJR2064-69-66 08:09:009.0[facility] LzojrhlTLMIYFSQUE5603-41-34 08:09:002.86[facility] LtibiprISEWAGQGZW7760-05-29 08:09:007.4[facility] OCIULYEERZ5656-60-14 08:09:34281Msccxuiw LetgwkkHIJSAUEZIK3594-69-41 08:09:00 15.1[facility] SrcaiwiMNKBEMWDRJ5050-61-60 08:09:0034.0[facility] HermannCARDIAC UGDITRK2291-98-49 00:37:00 Test Item Value Reference Range Interpretation Comments CK MB Index (test 1.7 1 See_Comment [Automate d message] The code = CK MB Index) [facility] generated this result transmit emerson reference range : <=2.5. The reference range was not used to interpr et this result as erinn l/abnormal. [facility]annCARDIAC LUFNQCQ5582-02-76 00:37:002.9[facility] HermannCARDIAC XICSSWZ6937-06-29 00:37:00<0.02[facility] HermannCARDIAC PIJHKSN0617-94-42 00:37:07901Fhvgncmo HermannCARDIAC ATYFKQM3621-72-65 00:37:952889Wryoazvr HermannCHEM OMBWH4131-32-43 00:37:001.9[facility] HermannCHEM CWLHB1346-84-92 00:37:009.1[facility] HermannCHEM HNHDR3251-24-51 00:37:005[facility]annCHEM XFFTS2140-95-43 00:37:60774Ytknmabo HermannCHEM VHKDC2902-45-01 00:37:0023 [facility]annCHEM MXXJN8246-35-89 00:37:0024[facility] HermannCHEM PANEL 2018-01-23 00:37:00 Test Item Value Reference Range Interpretation Comments A/G Ratio (test code = A/G Ratio) 0.8 1 0.7-1.6 [facility]annCHEM AUQYQ2885-91-04 00:37:004.0[facility] HermannCHEM PANEL 2018-01-23 00:37:000.4[facility] HermannCHEM QMQFC3688-90-59 00:37:004.4[facility] HermannCHEM QRCUH0022-70-09 00:37:006.7[facility] HermannCHEM ZMWDY4908-22-06 00:37:62731Oqxnespm HermannCHEM EFKAK1346-74-94 00:37:0011.00[facility] CHEM CXMEJ6359-24-74 00:37:0017.4[facility] HermannCHEM MYBNR4145-64-99 00:37:0025 [facility]annCHEM LEDDZ6191-89-57 00:37:0092[facility] HermannCHEM PANEL 2018-01-23 00:37:003.4[facility] HermannCHEM GGLSJ8202-60-38 00:37:007.4[facility] HermannCHEM ZPIGP3487-04-74 00:37:00 Test Item Value Reference Range Interpretation Comments B/C Ratio (test code = B/C Ratio) 8 1 6-25 [facility]annCHEM UHCJV9745-32-30 00:37:0084[facility] HermannCHEM PANEL 2018-01-23 00:37:94072Lwkqfiis BxfhhusWUCHMFIQGW4187-88-99 00:37:0021.5[facility] OjtmuppJBKBUYLTZD5047-65-45 00:37:001.6[facility] PyuycxqVKFHKAZGLG7296-31-83 00:37:000.3[facility] ScrkpjmOIBGYIVXRU2464-12-37 00:37:0063.7[facility] [place] HLUKKPIMVW4002-48-52 00:37:004.8[facility] YwxwgniDQJQWNFFKN4252-19-84 00:37:003.5 [facility] XzqewyaOTOLGRRJIJ6637-31-05 00:37:0010.4[facility] HermannHEMATOLOGY 2018-01-23 00:37:000.9[facility] FmyofkzIAYHGDMCXV4843-16-13 00:37:000.1[facility] ShcwblkXZQGGLVDCB9086-42-24 00:37:000.8[facility] KsnadgmNBEYXCUSVP6263-55-43 00:37:00 Test Item Value Reference Range Interpretation Comments INR (test code = INR) 1.06 1 0.85-1.17 [facility] PgmqgjcIFPHXNEYFC4506-60-71 00:37:00 Test Item Value Reference Range Interpretation Comments PT (test code = PT) 13.8 s 12.0-14.7 [facility] UmiuuzwIRGCRGXGAU8976-75-74 00:37:00 Test Item Value Reference Range Interpretation Comments PTT (test code = PTT) 35.7 s 22.9-35.8 [facility] GjxuvbbAQLFMUOQBE1596-27-01 00:37:91822Axbdixjv HermannHEMATOLOGY 2018-01-23 00:37:007.5[facility] CbhvbkcUHHNWPDLWJ5515-56-80 00:37:0025.4[facility] JirtjcwYFFEWSWHVB3465-34-55 00:37:0080.3[facility] EokhmdrCRKYURZOIQ2128-79-59 00:37:00 Test Item Value Reference Range Interpretation Comments MCH (test code = MCH) 28.2 pg 27.0-31.0 [facility] WuuflgkYRWRCVNVCY4648-83-05 00:37:008.9[facility] HermannHEMATOLOGY 2018-01-23 00:37:0035.1[facility] BfbldfuZJKZAPHDGS1994-45-84 00:37:0013.9[facility] NonlhowVMXSDTOAOT5094-12-23 00:37:007.6[facility] FajbucxDBNYMAWLCQ5903-61-77 00:37:003.16[facility]annURINE AND CUUAU6628-66-60 00:37:0050[facility] URINE AND NHLWA2875-72-77 00:37:008[facility]annURINE AND ADMGF7329-77-24 00:37:00Small *ABN*(01/22/18 7:37 PM)[facility]annUR[facility] AND ZJVLG8235-37-84 00:37:00 Test Item Value Reference Range Interpretation Comments UA pH (test code = UA pH) 6.0 1 5.0-8.0 [facility]UR[facility] AND XFJYF5858-34-82 00:37:00Clear (01/22/18 7:37 PM) [facility] SHDZS4388-01-48 00:37:00 Test Item Value Reference Range Interpretation Comments UA Spec Grav (test code = UA Spec 1.005 1 Grav) [facility] UNEYQ3245-27-54 00:37:00Negative (01/22/18 7:37 PM) [facility] XDLVL1101-32-28 00:37:00Small *ABN*(01/22/18 7:37 PM) [facility] MBUQB8238-41-00 00:37:00Negative *NA*(01/22/18 7:37 PM) [facility]annCARDIAC FHWAOQS1613-02-84 00:37:00 Test Item Value Reference Range Interpretation Comments CK MB Index (test 1.7 1 See_Comment [Automate d message] The code = CK MB Index) system [facility] generated this result transmit emerson reference range : <=2.5. The reference range was not used to interpr et this result as erinn l/abnormal. [facility] ESQJZIX9636-01-93 00:37:002.9[facility] XKROSVV7764-11-47 00:37:00<0.02[facility] OOHSDAA1625-86-28 00:37:55211Gydlijiv HermannCARDIAC BVMFGFO8837-04-27 00:37:475218Tpjoqgoi HermannCHEM UXNNF9340-42-44 00:37:001.9[facility] UMRLR3060-47-55 00:37:009.1[facility] VQETM2748-23-87 00:37:005[facility] MXMZC0378-45-40 00:37:44526Wmzprvrn HermannCHEM FAUNQ2605-34-48 00:37:0023 [facility] UYSJF1494-95-22 00:37:0024[facility]annCHE[facility] PANEL 2018-01-23 00:37:00 Test Item Value Reference Range Interpretation Comments A/G Ratio (test code = A/G Ratio) 0.8 1 0.7-1.6 [facility] KQCPF2892-34-91 00:37:004.0[facility] PANEL 2018-01-23 00:37:000.4[facility] JZBYY1628-22-50 00:37:004.4[facility] BFXYN7879-12-73 00:37:006.7[facility] IVART4957-12-82 00:37:20868Ohibvnxy HermannCHEM RZTVA1412-65-29 00:37:0011.00[facility] ZIDIG7917-94-37 00:37:0017.4[facility] WCDKB8528-02-27 00:37:0025 [facility] VNAFD9433-13-22 00:37:0092[facility] PANEL 2018-01-23 00:37:003.4[facility] XDPNT1245-07-69 00:37:007.4[facility]CHE[facility] PUOGH8082-76-51 00:37:00 Test Item Value Reference Range Interpretation Comments B/C Ratio (test code = B/C Ratio) 8 1 6-25 [facility] IYJKV4048-93-66 00:37:0084[facility] PANEL 2018-01-23 00:37:69390Syfyauam JpgycdkJJIAHLFOYW7926-66-29 00:37:0021.5[facility] QrbijieFZMKXATFPC5341-91-59 00:37:001.6[facility] AaxiijtGAXXNSQBHB0979-32-35 00:37:000.3[facility] HzqeddmBZVBDZOQQT5882-07-21 00:37:0063.7[facility] [place] ICEHEGWLZV7080-76-01 00:37:004.8[facility] NfucefwMCFQOFJTKC9336-11-67 00:37:003.5 [facility] LvyquhxGURNMNUWOE5398-55-00 00:37:0010.4[facility]annHEMATOLOGY 2018-01-23 00:37:000.9[facility] IbwjvwtYAOHUQPZKA6764-68-66 00:37:000.1[facility] QpqafajBFKGOPOWEE7225-52-64 00:37:000.8[facility] KydqafyKOVTHKPEHA4537-60-22 00:37:00 Test Item Value Reference Range Interpretation Comments INR (test code = INR) 1.06 1 0.85-1.17 [facility] DrciocjXOSEGDAKPK7753-74-71 00:37:00 Test Item Value Reference Range Interpretation Comments PT (test code = PT) 13.8 s 12.0-14.7 [facility] XbnkpzvNHSLETGUJO4684-19-60 00:37:00 Test Item Value Reference Range Interpretation Comments PTT (test code = PTT) 35.7 s 22.9-35.8 [facility] MksihtkWIUIYHRLIA2042-84-31 00:37:09069Aojzmror HermannHEMATOLOGY 2018-01-23 00:37:007.5[facility] RqchyfnPZYMQOVHZH1241-00-29 00:37:0025.4[facility] NwpjsabNFWMJKJFVZ9506-85-88 00:37:0080.3[facility] IfyefbmJEGGIHPPHB5186-82-24 00:37:00 Test Item Value Reference Range Interpretation Comments MCH (test code = MCH) 28.2 pg 27.0-31.0 [facility] WpnahwgBZRGVWKBRN3657-03-10 00:37:008.9[facility]Y 2018-01-23 00:37:0035.1[facility] XfstudfGAMHKXALPQ2839-50-72 00:37:0013.9[facility] YonglyeQMDUSMJCKE2455-52-64 00:37:007.6[facility] CxmaifxAFIEHPOHBK0768-23-16 00:37:003.16[facility] KCYJY6249-24-23 00:37:0050[facility] [place] [facility]INE AND SOGRY1201-61-46 00:37:008[facility] SJPKE4135-86-68 00:37:00Small *ABN*(01/22/18 7:37 PM)[facility] VISTJ3825-92-47 00:37:00 Test Item Value Reference Range Interpretation Comments UA pH (test code = UA pH) 6.0 1 5.0-8.0 [facility] AYNUM0069-07-06 00:37:00Clear (01/22/18 7:37 PM) [facility] EPBBZ5841-38-71 00:37:00 Test Item Value Reference Range Interpretation Comments UA Spec Grav (test code = UA Spec 1.005 1 Grav) [facility] QOFKD8100-23-67 00:37:00Negative (01/22/18 7:37 PM) [facility] OVMIA6694-95-49 00:37:00Small *ABN*(01/22/18 7:37 PM) [facility] MORFT2372-49-14 00:37:00Negative *NA*(01/22/18 7:37 PM) [facility] NRIJEOD4720-83-50 00:37:00 Test Item Value Reference Range Interpretation Comments CK MB Index (test 1.7 1 See_Comment [Automate d message] The code = CK MB Index) [facility] generated this result transmit emerson reference range : <=2.5. The reference range was not used to interpr et this result as erinn l/abnormal. [facility] XATQUPU6400-87-11 00:37:002.9[facility] ICMRWRL1427-90-59 00:37:00<0.02[facility] JKHBELY0442-20-87 00:37:96324Gtvehndg HermannCARDIAC LTODPIK2648-29-69 00:37:997127Mpqewcik HermannCHEM GTTTZ7444-91-09 00:37:001.9[facility]annCHEM QZKRP5344-21-78 00:37:009.1[facility]annCHEM YHBDU4461-53-45 00:37:005[facility]annCHEM MZZHD1972-70-87 00:37:44271Bhneuxno HermannCHEM FOLXN2076-73-64 00:37:0023 [facility] LLXCV7986-74-03 00:37:0024[facility]annCHEM PANEL 2018-01-23 00:37:00 Test Item Value Reference Range Interpretation Comments A/G Ratio (test code = A/G Ratio) 0.8 1 0.7-1.6 [facility]CHE[facility] ILKSZ9852-29-61 00:37:004.0[facility]annCHEM PANEL 2018-01-23 00:37:000.4[facility]annCHEM MUBBV5287-23-16 00:37:004.4[facility]annCHEM FPKZW7144-89-15 00:37:006.7[facility]annCHEM DZCZP4466-44-41 00:37:36032Qhvsjxhc HermannCHEM DADXO6972-28-66 00:37:0011.00[facility] CHEM ICPUA8969-70-80 00:37:0017.4[facility]annCHEM XKFXM3095-40-31 00:37:0025 [facility] ZGBXH1814-34-17 00:37:0092[facility]annCHEM PANEL 2018-01-23 00:37:003.4[facility]annCHEM EOTPA0354-07-88 00:37:007.4[facility]annCHE[facility] GVZFN3962-91-05 00:37:00 Test Item Value Reference Range Interpretation Comments B/C Ratio (test code = B/C Ratio) 8 1 6-25 [facility]CHE[facility] NQUFN7021-04-51 00:37:0084[facility]annCHEM PANEL 2018-01-23 00:37:15604Ajscrove JqcnhrlMHZCMSAWKY6602-45-83 00:37:0021.5[facility] JtmyvbnZPYFVCTYSA8808-93-33 00:37:001.6[facility] YzvlrvfMQWUYMSLGO5700-31-92 00:37:000.3[facility] ZbinduoPGSJEZTEGI9026-40-82 00:37:0063.7[facility] [place] ZNNVOCRIBJ5583-40-24 00:37:004.8[facility] ClpfxpdGIKZRJWJRV0071-60-82 00:37:003.5 [facility] LmycntzMQJJCCOBUU8447-36-73 00:37:0010.4[facility]annHEMATOLOGY 2018-01-23 00:37:000.9[facility] UrspxhrLYPKOPYOKB8899-12-07 00:37:000.1[facility] DqkjsbkHDDBFEWPYS5467-48-29 00:37:000.8[facility] RmerxicNZXOASZNJL1087-85-13 00:37:00 Test Item Value Reference Range Interpretation Comments INR (test code = INR) 1.06 1 0.85-1.17 [facility] PdlhbxbMCVVRCSLFU0549-87-68 00:37:00 Test Item Value Reference Range Interpretation Comments PT (test code = PT) 13.8 s 12.0-14.7 [facility] VvakaimOUBDQJEBSR2491-48-12 00:37:00 Test Item Value Reference Range Interpretation Comments PTT (test code = PTT) 35.7 s 22.9-35.8 [facility] ErgqwgxKMNOFPOWXS6753-82-64 00:37:46204Loydvlmw HermannHEMATOLOGY 2018-01-23 00:37:007.5[facility] MvbgdhqJVYUVTYWCV4663-25-01 00:37:0025.4[facility] DfgpruhNRKYROGNVW1991-31-62 00:37:0080.3[facility] DzbmraoTQZLZUPZVF5350-19-72 00:37:00 Test Item Value Reference Range Interpretation Comments MCH (test code = MCH) 28.2 pg 27.0-31.0 [facility] EcbmvbxVENJVYNQIV7495-41-94 00:37:008.9[facility]annHEMATOLOGY 2018-01-23 00:37:0035.1[facility] SbftyzrXHXLLVBVJN0469-52-89 00:37:0013.9[facility] FusirluXQUMHNSEDE9606-97-00 00:37:007.6[facility] EuowrjyBOZXJNAPSV9901-96-62 00:37:003.16[facility] MUQGO2190-11-60 00:37:0050[facility] [place] URINE AND TQOUP8488-19-29 00:37:008[facility] NWMBL8039-02-45 00:37:00Small *ABN*(01/22/18 7:37 PM)[facility] CHFSZ5762-69-23 00:37:00 Test Item Value Reference Range Interpretation Comments UA pH (test code = UA pH) 6.0 1 5.0-8.0 [facility] YNZPB3133-55-75 00:37:00Clear (01/22/18 7:37 PM) [facility] HRPUC2204-83-69 00:37:00 Test Item Value Reference Range Interpretation Comments UA Spec Grav (test code = UA Spec 1.005 1 Grav) [facility] YZOMG4672-11-66 00:37:00Negative (01/22/18 7:37 PM) [facility] LJYUU9002-73-88 00:37:00Small *ABN*(01/22/18 7:37 PM) [facility] CBEJB3726-43-32 00:37:00Negative *NA*(01/22/18 7:37 PM) [facility]CHE[facility] THZWK0525-87-52 10:09:001.8[facility]annCHEM PANEL 2017-12-20 10:09:004[facility]annCHEM RIKEF2416-30-44 10:09:0011.60[facility]annCHEM KJFAX2168-34-50 10:09:006.9[facility]annCHEM KXRMZ8200-01-69 10:09:0027[facility]annCHEM XOSAQ5370-43-12 10:09:80308Cieopnex HermannCHEM JBXSM8342-42-19 10:09:0094[facility]annCHEM BAVAQ4359-30-81 10:09:003.7 [facility]CHE[facility] JLTDC2776-11-07 10:09:20071Yguwbanf HermannCHEM PANEL 2017-12-20 10:09:0085[facility]annCHEM PVBVV1497-08-04 10:09:0015.7[facility] WmdwkklJBHNUQRLXP7159-91-86 10:09:000.2[facility] GkrxkroQVZOHBGPBD2721-24-46 10:09:000.6[facility] LqrgsjyNORTDEQMBP1363-09-53 10:09:001+ *ABN*(12/20/17 5:09 AM)[facility] NfyahyaVEXJBTEJMH1083-64-61 10:09:0071.0[facility] HermannHEMATOLOGY 2017-12-20 10:09:001.0[facility] SjkmyanFXMLPFEAZO2740-85-66 10:09:000.8[facility] JyptlppVCFAHYKTXN5013-99-77 10:09:004.6[facility] ZlzpwvwRTCSJAIZDW7045-99-42 10:09:0015.7[facility] BvcmjhrZBHAXTYBVP6297-29-19 10:09:003.1[facility] ZPLKBMOHWD0501-58-38 10:09:009.4[facility] WpbeqjcSPPPSYSBFF9548-90-65 10:09:52090 [facility] WkzqyjmHKZYBIXUYY4158-38-60 10:09:0077.5[facility]annHEMATOLOGY 2017-12-20 10:09:0035.5[facility] EyaeeqgZWSUOCQKTE0832-71-63 10:09:00 Test Item Value Reference Range Interpretation Comments MCH (test code = MCH) 27.5 pg 27.0-31.0 [facility] EacyjagTDGUAVEBXX7104-97-86 10:09:0014.1[facility] HermannHEMATOLOGY 2017-12-20 10:09:007.7[facility] WotucezIXYPLUDBUG7486-69-24 10:09:0023.5[facility] YdgstkkOKDTRUFRFB3860-53-27 10:09:008.4[facility] MuginpiFVTUZJVWEF4165-04-78 10:09:003.03[facility] IzyfkuoTULGYOTOJQ6490-77-74 10:09:006.5[facility] [place] [place] PARATHYROID LLPWIBV8358-39-61 10:09:000.86[facility] HermannPARATHYROID PROFILE 2017-12-20 10:09:000.86[facility]annCHEM WUGYS5303-85-80 10:09:001.8[facility]annCHEM FVBDZ1345-69-59 10:09:004[facility]annCHEM PPXVQ4163-41-14 10:09:0011.60[facility]annCHEM URLFH3888-90-27 10:09:006.9[facility] CHEM MNBJA0711-29-32 10:09:0027[facility]annCHEM MGIKG8026-68-40 10:09:18524 [facility]annCHEM AUKSO8240-99-38 10:09:0094[facility]annCHEM PANEL 2017-12-20 10:09:003.7[facility]annCHEM XCYHS0722-61-35 10:09:31501Lhccpztt HermannCHEM XCOWX7505-28-88 10:09:0085[facility]annCHEM FUMHF4369-32-33 10:09:0015.7[facility] YzwiyfzFMTSEKOCRU4728-08-89 10:09:000.2[facility] [place] JBZUGFNEQA1584-32-25 10:09:000.6[facility] VkpnregUDFAEWRPRU0321-17-98 10:09:001+ *ABN*(12/20/17 5:09 AM)[facility] YdxsrdvVSPJZPSQZT5264-05-70 10:09:0071.0[facility] XzwpdkvMMKKSESFFH9251-32-09 10:09:001.0[facility] QcppqztSXCUSPQTXC2352-87-64 10:09:000.8[facility] LzqujyzYBWRIOKZLO6983-01-41 10:09:004.6[facility] RTLZOEORUL4601-57-03 10:09:0015.7[facility] NblfvtsPCXWMRHTHN0623-32-62 10:09:00 3.1[facility] LcavufzJDMZHMANMH9858-45-34 10:09:009.4[facility]annHEMATOLOGY 2017-12-20 10:09:86095Lmiqqkij AyoaydxCDZHSAIJYD9015-03-53 10:09:0077.5[facility] KexsvngHEFFSBKHEH7413-57-78 10:09:0035.5[facility] VikineyAHWHGUDHPM4306-18-82 10:09:00 Test Item Value Reference Range Interpretation Comments MCH (test code = MCH) 27.5 pg 27.0-31.0 [facility] AsqtpctGGLIMRLANS2408-15-95 10:09:0014.1[facility] HermannHEMATOLOGY 2017-12-20 10:09:007.7[facility] ItsmgciBMNTECVTTW1699-72-70 10:09:0023.5[facility] VsjjlppKQUGRDFJQI7015-15-38 10:09:008.4[facility] QdmthxxZWZSILELFM5127-12-81 10:09:003.03[facility] PbzovsgABXGPKWLKS3054-54-83 10:09:006.5[facility] PARATHYROID NDYFWZF8117-33-98 10:09:000.86[facility] HermannPARATHYROID PROFILE 2017-12-20 10:09:000.86[facility]annCHEM WSTXX5606-09-37 10:09:001.8[facility]annCHEM TRGNC2553-65-02 10:09:004[facility]annCHEM AODVE1148-68-18 10:09:0011.60[facility]annCHEM FCUVA2382-88-09 10:09:006.9[facility] CHEM QMAVB6786-72-05 10:09:0027[facility]annCHEM HXYVO6827-61-01 10:09:44000 [facility]annCHE[facility] FHTVB9021-11-51 10:09:0094[facility]annCHEM PANEL 2017-12-20 10:09:003.7[facility]annCHEM XRXRB2579-76-78 10:09:35165Ykoieqdv HermannCHEM UZUDV6286-77-33 10:09:0085[facility]annCHEM QRNDZ0938-97-21 10:09:0015.7[facility] ApdpagqKOZLYKXEVN9895-62-72 10:09:000.2[facility] [place] [place] NIAXSGXYCC3652-61-72 10:09:000.6[facility] DlnhenlWGHERMGPJY4851-48-50 10:09:001+ *ABN*(12/20/17 5:09 AM)[facility] PaizjjpXUGPCHIRHQ9977-31-54 10:09:0071.0[facility] OmzaatzKXBFEMVJWC6833-15-25 10:09:001.0[facility] BkiysppNKATJWBBWE2825-89-83 10:09:000.8[facility] EychcobRAQYEMZTYC3781-97-45 10:09:004.6[facility] XNNNRLAGUJ8937-05-71 10:09:0015.7[facility] PqjdbemADAISSKZPK9708-41-17 10:09:00 3.1[facility] FytpxeeSCRBODDIUN8135-62-06 10:09:009.4[facility] HermannHEMATOLOGY 2017-12-20 10:09:61826Wlzqgkib QkjecpwRNQMSPPTZZ2953-04-60 10:09:0077.5[facility] JeuznmrYNJXNGVVHX7154-07-72 10:09:0035.5[facility] KyjgdjtWWNMJEFXWT5987-53-30 10:09:00 Test Item Value Reference Range Interpretation Comments MCH (test code = MCH) 27.5 pg 27.0-31.0 [facility] IorvislLGLYZOSFJD3928-78-10 10:09:0014.1[facility] HermannHEMATOLOGY 2017-12-20 10:09:007.7[facility] RwngvhzWWDUQNQPTQ6723-61-71 10:09:0023.5[facility] DmglgusTCPXEYRLZK2331-26-12 10:09:008.4[facility] CsgqicjRBSLAEZPNJ4817-98-81 10:09:003.03[facility] YdrduwaUMLIKIEKNG3958-52-35 10:09:006.5[facility] [place] PARATHYROID JEAIYBO4377-12-00 10:09:000.86[facility] HermannPARATHYROID PROFILE 2017-12-20 10:09:000.86[facility]UR[facility] ONYSU2282-41-80 17:00:00 Positive *ABN*(12/19/17 12:00 PM)[facility] LPXQV1715-32-17 17:00:00Positive *ABN*(12/19/17 12:00 PM)[facility] STOOL 2017-12-19 17:00:00Positive *ABN*(12/19/17 12:00 PM)[facility]annCHEM PANEL 2017-12-19 12:14:008.2[facility]annCHEM KGRGP9607-52-30 12:14:00 Test Item Value Reference Range Interpretation Comments A/G Ratio (test code = A/G Ratio) 0.8 1 0.7-1.6 [facility]CHE[facility] USXVR8884-83-77 12:14:009[facility]annCHEM PANEL 2017-12-19 12:14:0010[facility]annCHEM ENGJX0326-06-15 12:14:003.5[facility]annCHEM GPVOH1478-48-02 12:14:002.7[facility]annCHEM NIJAV1891-54-18 12:14:004[facility]annCHEM NSPCG5231-04-18 12:14:16246Sayvmise HermannCHEM TOVJQ4945-08-51 12:14:000.3[facility]annCHEM SEDWS6348-80-97 12:14:0088 [facility]annCHE[facility] OLNZC5393-20-45 12:14:003.6[facility]annCHEM PANEL 2017-12-19 12:14:0095[facility]annCHEM GFTGO0324-14-19 12:14:19471Pmvbuxbo HermannCHEM WLANQ6929-13-28 12:14:64049Ldtwnwzc HermannCHEM BPLXC9590-70-77 12:14:0011.70[facility]annCHEM WHSUB7063-91-69 12:14:00 Test Item Value Reference Range Interpretation Comments B/C Ratio (test code = B/C Ratio) 9 1 6-25 [facility]annCHEM FOXYM0480-93-96 12:14:006.2[facility]annCHEM PANEL 2017-12-19 12:14:006.5[facility]annCHEM KCLTV7391-76-90 12:14:0014.6[facility]annCHEM RNWUT3359-33-96 12:14:0029[facility] HermannPARATHYROID PROFILE 2017-12-19 12:14:000.88[facility] HermannPARATHYROID CHCIBNL5160-50-77 12:14:00 0.85[facility]annCHEM QQFQA1971-18-38 12:14:008.2[facility]annCHEM PANEL 2017-12-19 12:14:00 Test Item Value Reference Range Interpretation Comments A/G Ratio (test code = A/G Ratio) 0.8 1 0.7-1.6 [facility]annCHEM CWKAL1615-22-01 12:14:009[facility]annCHEM PANEL 2017-12-19 12:14:0010[facility]annCHEM NHZAY1026-98-79 12:14:003.5[facility]annCHEM WRZTN9723-32-93 12:14:002.7[facility]annCHEM OXGHX5138-84-98 12:14:004[facility]annCHEM PUTWG2639-54-74 12:14:66252Lkhzlbdx HermannCHEM IXQIP9935-65-40 12:14:000.3[facility]annCHEM RKKYY9881-60-84 12:14:0088 [facility]annCHEM KZUMY4998-81-89 12:14:003.6[facility]annCHEM PANEL 2017-12-19 12:14:0095[facility]annCHEM ULGDA3109-33-75 12:14:48902Jyrdnlty HermannCHEM IZKFJ9762-95-84 12:14:79641Ibgxgmif HermannCHEM DPPMG1823-03-22 12:14:0011.70[facility]annCHEM MZSZR3876-13-66 12:14:00 Test Item Value Reference Range Interpretation Comments B/C Ratio (test code = B/C Ratio) 9 1 6-25 [facility]annCHEM NWYDC2220-83-63 12:14:006.2[facility]annCHEM PANEL 2017-12-19 12:14:006.5[facility]annCHEM UYZVJ9315-52-53 12:14:0014.6[facility]annCHEM VITXB0083-15-45 12:14:0029[facility] HermannPARATHYROID PROFILE 2017-12-19 12:14:000.88[facility] HermannPARATHYROID HYPRMFW3297-81-13 12:14:00 0.85[facility]annCHEM CFKCX6882-56-30 12:14:008.2[facility]annCHEM PANEL 2017-12-19 12:14:00 Test Item Value Reference Range Interpretation Comments A/G Ratio (test code = A/G Ratio) 0.8 1 0.7-1.6 [facility]annCHE[facility] TJGUG3807-93-18 12:14:009[facility]annCHEM PANEL 2017-12-19 12:14:0010[facility]annCHEM CESMA8647-80-78 12:14:003.5[facility]annCHEM TRLMW8208-89-50 12:14:002.7[facility]annCHEM DRQOD2260-26-55 12:14:004[facility]annCHEM WNWCI1757-79-89 12:14:95702Xkecjlqs HermannCHEM BPYIY0350-55-88 12:14:000.3[facility]annCHEM BRZPI1519-36-12 12:14:0088 [facility]annCHEM CKQNS7384-74-22 12:14:003.6[facility]annCHEM PANEL 2017-12-19 12:14:0095[facility]annCHEM YHWER6568-67-64 12:14:48940Rljurtkt HermannCHEM ZYWJY8601-11-72 12:14:62375Sbrxdwsb HermannCHEM VBCSN7946-20-71 12:14:0011.70[facility]annCHEM QFFGH6810-79-84 12:14:00 Test Item Value Reference Range Interpretation Comments B/C Ratio (test code = B/C Ratio) 9 1 6-25 [facility]annCHEM LWRAE4589-08-67 12:14:006.2[facility]annCHEM PANEL 2017-12-19 12:14:006.5[facility]annCHEM DHMAT0905-29-09 12:14:0014.6[facility]annCHEM BIVYM3986-50-81 12:14:0029[facility] HermannPARATHYROID PROFILE 2017-12-19 12:14:000.88[facility] HermannPARATHYROID PSLOSOI7526-61-45 12:14:00 0.85[facility]annCHEM THYCL1628-37-35 10:02:004[facility]annCHEM PANEL 2017-12-19 10:02:0092[facility]annCHEM WQVIV9362-41-39 10:02:88480Cqwsgpnz HermannCHEM NQYPN1196-62-98 10:02:003.6[facility]annCHEM QGMLG7682-72-15 10:02:0097[facility]annCHEM ZITTL3059-63-84 10:02:0011.80[facility]annCHEM XBWUQ6886-17-73 10:02:006.8[facility]annCHEM DLAIN2794-56-16 10:02:0027 [facility]annCHEM VNWOJ5490-37-20 10:02:0018.6[facility]annCHEM PANEL 2017-12-19 10:02:0096[facility]annCHEM ZCYWZ8716-94-02 10:02:001.8[facility] HboakjrTEVJQZLGXU0181-63-25 10:02:0014.3[facility] ImdwzejVFYXBHBBKJ5603-30-09 10:02:0034.5[facility] CljryulUAFNVXVSVN3822-31-52 10:02:00 Test Item Value Reference Range Interpretation Comments MCH (test code = MCH) 26.8 pg 27.0-31.0 [facility] XbnuruzQTSDXYIHTJ3327-24-31 10:02:008.0[facility] HermannHEMATOLOGY 2017-12-19 10:02:96982Sbugagzh LbhxrqlCQVVRHJJDQ0803-71-86 10:02:0077.7[facility] LmdabboIUCYAHJTCZ0878-19-80 10:02:0024.7[facility] PjpusukBPHNIFQAOG3899-80-76 10:02:008.5[facility] ZmvubqqAZSROXVEZQ6035-64-05 10:02:003.17[facility] BZLZOAYBIB2664-88-95 10:02:006.6[facility] XkqqmwaGZXVYCDBJA2714-42-64 10:02:000.7 [facility] XblrgnoIVACMMEWLR1836-83-52 10:02:000.2[facility]annHEMATOLOGY 2017-12-19 10:02:001+ *ABN*(12/19/17 5:02 AM)[facility] YqniqfoFLWSISTCER4717-38-04 10:02:001.0[facility] SteyxqmAJYXKJMCDB4933-39-82 10:02:000.6[facility] LFMWXHSMQB7394-22-34 10:02:004.7[facility] DfdabjmAJWMWZNYLG2670-74-10 10:02:00 10.3[facility] CnbrcreWAEXUDEPYZ1530-75-17 10:02:002.9[facility]annHEMATOLOGY 2017-12-19 10:02:0015.3[facility] PmkwgnbQXFFMIVWDF6279-82-35 10:02:0070.9[facility] HermannPARATHYROID GGBBNFD7048-64-18 10:02:000.88[facility] HermannPARATHYROID MAUTKPL9438-00-25 10:02:000.88[facility] HermannCHEM SMFUG8205-49-34 10:02:004 [facility]annCHEM MZYQK4230-11-64 10:02:0092[facility]annCHEM PANEL 2017-12-19 10:02:47639Kmxqilts HermannCHEM AHCBJ4330-13-80 10:02:003.6[facility] HermannCHEM AFMKK4259-56-00 10:02:0097[facility]annCHEM KWPVU9841-66-33 10:02:0011.80[facility]annCHEM FJVGK3093-46-43 10:02:006.8[facility] [place] CHEM JKRXF9808-91-69 10:02:0027[facility]annCHEM RIXQT6771-09-28 10:02:0018.6 [facility]annCHEM JTFQZ4352-14-34 10:02:0096[facility]annCHEM PANEL 2017-12-19 10:02:001.8[facility] RgygusbSYUQDRJRWR9789-68-11 10:02:0014.3[facility] DdboxgrPLGMWASHQZ1561-14-11 10:02:0034.5[facility] WaujhruUYLMIFMHYT7524-15-86 10:02:00 Test Item Value Reference Range Interpretation Comments MCH (test code = MCH) 26.8 pg 27.0-31.0 [facility] EjingyjEWYPDFAWGS6514-70-48 10:02:008.0[facility]annHEMATOLOGY 2017-12-19 10:02:98749Bcamupfw GvbyjdlZNBUSFPEWS0977-66-62 10:02:0077.7[facility] AigayhdSPRTHWJXJG1601-97-87 10:02:0024.7[facility] LktaopqCKPTBWWHDN0237-90-32 10:02:008.5[facility] FrwwimbGBOGRFXWOL1496-33-76 10:02:003.17[facility] SSGGDGHCPG5450-10-65 10:02:006.6[facility] InbgqnhKHRWMTLTBQ0673-82-17 10:02:000.7 [facility] DyyeynaWAPNMZHTRB4107-60-39 10:02:000.2[facility] HermannHEMATOLOGY 2017-12-19 10:02:001+ *ABN*(12/19/17 5:02 AM)[facility] MmbomklPIOTDBKJAT0100-39-28 10:02:001.0[facility] EyyzjreQQSYDNFASR1095-37-68 10:02:000.6[facility] GPWSLQCEJT9640-72-47 10:02:004.7[facility] LasgpxpQJZMSQZINQ7428-83-70 10:02:00 10.3[facility] BtgigicGKCNAZCPOC5898-26-71 10:02:002.9[facility] HermannHEMATOLOGY 2017-12-19 10:02:0015.3[facility] CpizfinWAYROIBLMP2871-42-76 10:02:0070.9[facility] HermannPARATHYROID JIIPKDC0345-08-63 10:02:000.88[facility] HermannPARATHYROID LYCYCNR6275-40-32 10:02:000.88[facility] HermannCHEM UMDHG9602-56-13 10:02:004 [facility]annCHEM SNLKG3137-81-02 10:02:0092[facility] HermannCHEM PANEL 2017-12-19 10:02:18875Ctxtrflq HermannCHEM NCGKQ4059-12-90 10:02:003.6[facility] HermannCHEM OPRXC7361-11-16 10:02:0097[facility] HermannCHEM LARFE8722-92-45 10:02:0011.80[facility]annCHEM RPTJH3717-38-13 10:02:006.8[facility] [place] CHEM VBZCO2949-54-58 10:02:0027[facility]annCHEM EPWOH9290-55-74 10:02:0018.6 [facility]annCHEM IZSLQ8012-22-85 10:02:0096[facility]annCHEM PANEL 2017-12-19 10:02:001.8[facility] UxiegizPGTGQMLOWG2524-98-39 10:02:0014.3[facility] CntxezuIUOHIMGEUE0858-54-73 10:02:0034.5[facility] AmdofvuBTGBSVWDOE3139-41-99 10:02:00 Test Item Value Reference Range Interpretation Comments MCH (test code = MCH) 26.8 pg 27.0-31.0 [facility] CixelphFOCJQBMKZK5835-58-18 10:02:008.0[facility] HermannHEMATOLOGY 2017-12-19 10:02:13973Mrsteivt VesoqsaOVMRMKFYZT1854-71-39 10:02:0077.7[facility] TlhkuzvBUAPOODPCX9882-32-73 10:02:0024.7[facility] KxljfwlVJVAUGHRFH5887-18-70 10:02:008.5[facility] WezoovuREBTEBXOPY7085-47-43 10:02:003.17[facility] NIGYKBUQPV2448-40-28 10:02:006.6[facility] FpwacjxKBHPPYEHHW5058-81-50 10:02:000.7 [facility] PjxbszjUKKWGSYAEE5925-04-51 10:02:000.2[facility] HermannHEMATOLOGY 2017-12-19 10:02:001+ *ABN*(12/19/17 5:02 AM)[facility] AlohfqyLYHEUMRXUO6732-79-82 10:02:001.0[facility] NbbsovzWGWEDRXNSD0633-34-38 10:02:000.6[facility] RSQZECJDRY4586-09-05 10:02:004.7[facility] IlioxadJDFGMXALND8710-67-86 10:02:00 10.3[facility] OpbfnqdGAKTIIQLCT4192-72-44 10:02:002.9[facility] HermannHEMATOLOGY 2017-12-19 10:02:0015.3[facility] UnuxgstDBYBOWBYIT2080-72-65 10:02:0070.9[facility] HermannPARATHYROID IXAYFFJ6616-37-75 10:02:000.88[facility] HermannPARATHYROID DNKHMMI5154-52-14 10:02:000.88[facility]annCHEM VWLLM5320-79-95 09:55:001.9 [facility]annCHEM DTYZS2392-65-39 09:55:008.8[facility]annCHEM PANEL 2017-12-18 09:55:001.9[facility]annCHEM ZXLNJ3783-52-56 09:55:008.8[facility]annCHEM PRTJV1037-77-11 09:55:001.9[facility]annCHEM OTGNN0032-41-89 09:55:008.8[facility] TlwxighQUUPOIVEJP5968-70-52 09:32:001+ *ABN*(12/17/17 4:32 AM)[facility] MbcqvurHNUXTXOIOU1397-23-17 09:32:000.2[facility]annHEMATOLOGY 2017-12-17 09:32:000.6[facility] EqmwplePCXANCEKRH7786-73-81 09:32:001.0[facility] OfjwsfuLUBJPIDLPG9053-46-01 09:32:003.9[facility] YepcqzfGHWQLVDNHE3247-73-78 09:32:000.6[facility] BjkgysqATSALZRZVI9715-21-73 09:32:002.7[facility] AHSOLZTCJS3027-00-13 09:32:0010.4[facility] LmlficcSWSJZRQJST8487-16-28 09:32:00 18.1[facility] FcrfolwNXAYSQAXND9704-30-20 09:32:0068.2[facility]annHEMATOLOGY 2017-12-17 09:32:03493Qqyzgwhn QrbgnosFYWRGWRIVP7600-65-77 09:32:0014.3[facility] MgshblqOFSCWBDEZS6690-14-44 09:32:008.0[facility] TqlgxbrIPVSWFSOJG6692-27-49 09:32:00 Test Item Value Reference Range Interpretation Comments MCH (test code = MCH) 27.4 pg 27.0-31.0 [facility] IcjestiDUDRDZVFDU4776-44-19 09:32:0078.6[facility]annHEMATOLOGY 2017-12-17 09:32:0022.8[facility] ZrovbxuMLDSAFUSZQ8775-73-84 09:32:0034.9[facility] YrxavovXHPVHLUOKW6667-21-09 09:32:007.9[facility] DjdxzwgKDJYRLYHCS9125-31-35 09:32:002.90[facility] ZneatesFFEOMMFCZZ4822-46-29 09:32:005.7[facility] BIDLWLIDYD3606-13-86 09:32:0080[facility] CevhiaxSMEMCJDMAS6385-32-73 09:32:007.0 [facility] UmoukrsTGVCDKFHZV0648-76-32 09:32:001.13[facility]annIMMUNOLOGY 2017-12-17 09:32:000.83[facility] BhsvqnpNGVVKMCOYB2998-06-05 09:32:000.85[facility] QnokwrzPJSCBPXEVP7182-52-59 09:32:000.48[facility] JfkytzvPBIWWSCFEG3512-89-75 09:32:003.72[facility] RamntqwTVVHMONONO1247-83-96 09:32:0011.8[facility] HEMFVMVHIG4558-45-49 09:32:0016.2[facility] JpdpvmyKECMDCGVFB3696-82-25 09:32:00 12.1[facility] ZmecfuvILRANRWTFM8402-81-71 09:32:006.8[facility] HermannIMMUNOLOGY 2017-12-17 09:32:0053.1[facility] UkqqxfnQXTACLTYID3497-90-27 09:32:0091[facility] BrgecfmFKPIUKUDNW9867-31-31 09:32:0029[facility] QchjckwCLTAYJSWDR8031-15-88 09:32:00Negative (12/17/17 4:32 AM)[facility] JqcudunOUQQNCCSQB0902-44-22 09:32:00 Negative (12/17/17 4:32 AM)[facility] MthpeesQTLFPOBQLT7957-45-66 09:32:00Negative *NA*(12/17/17 4:32 AM)[facility] FufreqdCCFQYNMNKA0920-34-42 09:32:00<3.1 [facility] EvtnagiJEMQVLHFNK1398-35-13 09:32:00Negative *NA*(12/17/17 4:32 AM) [facility] DxqfpkySUVDPSQYLR3621-11-03 09:32:00Negative (12/17/17 4:32 AM)[facility] RqcbqioJYRDYNPNEI7382-71-68 09:32:003.42[facility] HdmtgenEYUYWVKXSG9153-90-86 09:32:24826.40[facility] AwaljgeCZDKNRDLTD0901-31-96 09:32:0059.41[facility] KIQDKCKCZS8072-19-19 09:32:00Negative (12/17/17 4:32 AM)[facility] FHHESXDWIX1445-50-88 09:32:00<10[facility] SxlhkucPHJBHEMYWY6709-97-11 09:32:00 1+ *ABN*(12/17/17 4:32 AM)[facility] DlqehhuKAJMBHOVIW6364-89-12 09:32:000.2 [facility] KxufrzmHYPAUGCCSQ5258-12-24 09:32:000.6[facility] HermannHEMATOLOGY 2017-12-17 09:32:001.0[facility] XgzhonjRRGAULRBQW9502-52-91 09:32:003.9[facility] BoxyhybBSPJYVPWBY7513-34-56 09:32:000.6[facility] IctzaezRJZZZLKOFF1017-00-61 09:32:002.7[facility] OxrrpqtFLHMQLRDBB6945-89-06 09:32:0010.4[facility] PZULJLICWX1981-29-49 09:32:0018.1[facility] UkukbvrDFPFYSOPCT2154-81-82 09:32:00 68.2[facility] MyzzbpeKIPCYQOQGI7271-63-74 09:32:41420Ttwfhiyo HermannHEMATOLOGY 2017-12-17 09:32:0014.3[facility] DyppcatYVKUSCAKLS9384-87-94 09:32:008.0[facility] YyfyclqIJHSRHDCNY3329-74-12 09:32:00 Test Item Value Reference Range Interpretation Comments MCH (test code = MCH) 27.4 pg 27.0-31.0 [facility] FeetymnUVTPXXZRZY0834-62-40 09:32:0078.6[facility]annHEMATOLOGY 2017-12-17 09:32:0022.8[facility] PgigubpWOSNNAECYT6441-25-56 09:32:0034.9[facility] BfjcijcKPYXTTSZXF8024-63-20 09:32:007.9[facility] ZhzsqxlYNUSJIQCAD7929-93-12 09:32:002.90[facility] ZgpxzpeBTVTVSVERT8341-10-77 09:32:005.7[facility] DAVNMDSVQX0126-69-11 09:32:0080[facility] RjzogsoLFMJCNRLDQ3001-17-35 09:32:007.0 [facility] EotdimnFNZHHIBYKT4202-81-71 09:32:001.13[facility] HermannIMMUNOLOGY 2017-12-17 09:32:000.83[facility] XjmrzrtQSFPBEOHVH1106-12-89 09:32:000.85[facility] IaicvbwYGUBFCYFKN2576-55-00 09:32:000.48[facility] MbkeaaaMGMUWQVOPZ5835-17-95 09:32:003.72[facility] VynmuanYXMYFLXKYO5648-38-21 09:32:0011.8[facility] FSIRWLXJCQ5220-98-47 09:32:0016.2[facility] LkkewjhZHRQMBWWCU6653-99-39 09:32:00 12.1[facility] DdssdkxTRRVDBBDLS6350-86-13 09:32:006.8[facility] HermannIMMUNOLOGY 2017-12-17 09:32:0053.1[facility] PvsazhjAQOMOZCGMM2060-28-46 09:32:0091[facility] KhlihtkPCHXGDVVVT7664-98-44 09:32:0029[facility] KqeudpjNRMVSWTJND5931-75-17 09:32:00Negative (12/17/17 4:32 AM)[facility] GwtxwdpTVGZRBBHEW1286-97-18 09:32:00 Negative (12/17/17 4:32 AM)[facility] CfftzpjIGAWMCGEQV5700-84-77 09:32:00Negative *NA*(12/17/17 4:32 AM)[facility] NebipjwMJBYAFSVZI3030-28-96 09:32:00<3.1 [facility] OmjssrkGJNMTXHOMG2560-60-74 09:32:00Negative *NA*(12/17/17 4:32 AM) [facility] PewzagdLDXAJIJITC8573-11-68 09:32:00Negative (3/11/18 4:32 AM)[facility] VkloonuZCGKSZPVPE2803-21-37 09:32:003.42[facility] WipdasaBHJJVULBKZ6224-25-19 09:32:02297.40[facility] PrsrvkgODKEVLECYJ2535-05-41 09:32:0059.41[facility] ERATBHXCOH1210-62-81 09:32:00Negative (12/17/17 4:32 AM)[facility] ZFRPIICSIQ3946-16-07 09:32:00<10[facility] DwqclqvNURIFSGFRH1441-79-78 09:32:00 1+ *ABN*(12/17/17 4:32 AM)[facility] LaxjidmXNLZTKLFNS0981-98-70 09:32:000.2 [facility] UbjjzlqYTSVMIXXLK7086-51-92 09:32:000.6[facility] HermannHEMATOLOGY 2017-12-17 09:32:001.0[facility] BnixrrsQABLNQJPXB1165-60-88 09:32:003.9[facility] UtuogecUNDSULXMYX9621-09-23 09:32:000.6[facility] HdntmyaSZBRZUTTZY5730-08-28 09:32:002.7[facility] NdtjlhdKFYONPHFSF4508-61-12 09:32:0010.4[facility] DWNBYEEZRB4544-58-55 09:32:0018.1[facility] WmxkwniIIKCQKJHNP1220-62-85 09:32:00 68.2[facility] JdsqrlbLRZKLRYJHN8344-09-40 09:32:91645Vfgwebvy HermannHEMATOLOGY 2017-12-17 09:32:0014.3[facility] KoyiqvbVTFHPLQBTI8460-99-30 09:32:008.0[facility] ReowjqfLEWJEFFAPA5490-00-79 09:32:00 Test Item Value Reference Range Interpretation Comments MCH (test code = MCH) 27.4 pg 27.0-31.0 [facility] EkozhscAYUFPPVJZT6390-36-91 09:32:0078.6[facility]annHEMATOLOGY 2017-12-17 09:32:0022.8[facility] ChwisfdRHDWMBPJKE1686-88-75 09:32:0034.9[facility] OiniqfcXBZXVYJHXM6427-13-01 09:32:007.9[facility] KcgbxtvZMEWFQYVFU7448-85-36 09:32:002.90[facility] WcuwmvyPEUWKLGWMW3374-97-49 09:32:005.7[facility] [place] QJUJZDDBUW4586-90-18 09:32:0080[facility] LfqmevbGSCMYRYTWS0844-11-73 09:32:007.0 [facility] UjuvqzcGVUIUEBAFY3779-58-27 09:32:001.13[facility] HermannIMMUNOLOGY 2017-12-17 09:32:000.83[facility] TkzvsusCYSCLEEUHB6088-96-83 09:32:000.85[facility] FzcpsdkFIVOHQKSWQ5139-13-64 09:32:000.48[facility] LplvfxhMPFBOWVKWG0145-65-13 09:32:003.72[facility] BfiutvbMAYKCWDPUA9145-15-93 09:32:0011.8[facility] BMWHZZWVYI0054-15-02 09:32:0016.2[facility] SvrgktfLUPWYKHGFP7276-69-47 09:32:00 12.1[facility] OkslwgiUNPJDHLTOI8575-43-50 09:32:006.8[facility] HermannIMMUNOLOGY 2017-12-17 09:32:0053.1[facility] BkvxcvuUQQJEIBEPL0228-40-94 09:32:0091[facility] JienmsyZUMFDDHTHG2823-97-81 09:32:0029[facility] XeingaeRVLPLDIONJ4375-02-85 09:32:00Negative (12/17/17 4:32 AM)[facility] ZtryjvmGEJZZSYDVH6507-81-74 09:32:00 Negative (12/17/17 4:32 AM)[facility] BbcrxjgAEOWBLKUVK5421-49-32 09:32:00Negative *NA*(12/17/17 4:32 AM)[facility] QdbvvzyIICPFAUQQQ7539-80-85 09:32:00<3.1 [facility] DoypzvaLOIXGSEGHP7270-42-91 09:32:00Negative *NA*(12/17/17 4:32 AM) [facility] VmexravCUHUXRBTVG9795-63-88 09:32:00Negative (12/17/17 4:32 AM)[facility] FqzqrfvRTDDCWRQPY7203-84-39 09:32:003.42[facility] OcaowedWNTGJMOFZQ9225-21-45 09:32:49840.40[facility] QftrmhtAPWLYKWXBJ5164-40-03 09:32:0059.41[facility] [place] PDZXUTSWUB7936-67-93 09:32:00Negative (12/17/17 4:32 AM)[facility] MGLNNVIANY0041-81-19 09:32:00<10[facility]annANEMIA KUBMP2093-37-59 22:29:0012[facility]annANEMIA ENLHP8696-07-38 22:29:89501Urpkitej [place] ANEMIA UEOCE6525-93-94 22:29:40517Jhchdara HermannANEMIA GGBEJ4318-20-14 22:29:0034[facility]annANEMIA SZHXA4667-75-59 22:29:17154Xcbumicf [place] ANEMIA LZVMC9813-64-87 22:29:34201Llwfgpke HermannANEMIA SZYWQ8856-94-60 22:29:0019.0[facility] HermannCHEM ZUIZS1544-48-20 22:29:0012.3[facility] PARATHYROID ELQSZUT8867-64-35 22:29:88949.7[facility] HermannANEMIA STUDY 2017-12-15 22:29:0012[facility]annANEMIA AEKKJ5176-64-21 22:29:34976Tcktoijz HermannANEMIA ERBLJ3239-88-85 22:29:07089Zegwvipz HermannANEMIA KBTYV2973-51-32 22:29:0034[facility]annANEMIA JZHMO6309-50-32 22:29:20835Inpzprbo [place] ANEMIA EHQEZ1199-93-32 22:29:41406Mgmqmwup HermannANEMIA JDYMF1087-20-04 22:29:0019.0[facility]annCHEM HLKKW0600-06-69 22:29:0012.3[facility] PARATHYROID GGFZBBM5711-18-98 22:29:95523.7[facility] HermannANEMIA STUDY 2017-12-15 22:29:0012[facility]annANEMIA DPMCT4543-97-52 22:29:12452Dqtfpmbo HermannANEMIA IZRYV8831-05-16 22:29:02469Guixhvop HermannANEMIA XGXYJ4479-65-63 22:29:0034[facility]annANEMIA QEALX4553-20-09 22:29:18755Twroggnd [place] ANEMIA XMOZK1849-78-87 22:29:82983Zzcpgcvq HermannANEMIA TXVQA4772-16-04 22:29:0019.0[facility]annCHEM GHTVH8969-61-50 22:29:0012.3[facility] PARATHYROID DLJXNQF3353-54-33 22:29:96648.7[facility] ZdgopfuIFWULRNVSV2774-72-02 20:13:001.5[facility] TqzckwaXZSAWJRJWE7449-70-31 20:13:001.5[facility] FQRFAMAWOQ1366-99-61 20:13:001.5[facility] HermannCARDIAC XPIBQRM5211-13-64 20:12:00<0.02[facility]annCARDIAC FZNYGZU4057-27-61 20:12:03478Roktdpmf HermannCARDIAC BDYSIHM9455-43-16 20:12:005.4[facility]annCARDIAC ENZYMES 2017-12-15 20:12:00 Test Item Value Reference Range Interpretation Comments CK MB Index (test 1.4 1 See_Comment [Automate d message] The code = CK MB Index) [facility] generated this result transmit emerson reference range : <=2.5. The reference range was not used to interpr et this result as erinn l/abnormal. [facility]annCHEM OWYHJ6188-81-75 20:12:000.4[facility] HermannCHEM PANEL 2017-12-15 20:12:0014[facility]annCHEM KKDLP1872-27-05 20:12:0017[facility]annCHEM WWTDU8262-88-21 20:12:73667Btdrmcgr HermannCHEM FGGQC2529-19-46 20:12:003.4[facility] HermannCHEM UCENF8493-67-48 20:12:007.4[facility]annCHEM ILBOR0835-61-61 20:12:00 Test Item Value Reference Range Interpretation Comments B/C Ratio (test code = B/C Ratio) 9 1 - [facility]annCHEM VIVSB0550-60-57 20:12:00 Test Item Value Reference Range Interpretation Comments A/G Ratio (test code = A/G Ratio) 0.8 1 0.7-1.6 [facility]annCHEM UKORT2413-12-53 20:12:004.0[facility]annCARDIAC ENZYMES 2017-12-15 20:12:00<0.02[facility]annCARDIAC NCCQMLF5519-10-73 20:12:61226 [facility]annCARDIAC BPPGGRZ6073-36-43 20:12:005.4[facility]annCARDIAC AQHEAMA0936-70-72 20:12:00 Test Item Value Reference Range Interpretation Comments CK MB Index (test 1.4 1 See_Comment [Automate d message] The code = CK MB Index) [facility] generated this result transmit emerson reference range : <=2.5. The reference range was not used to interpr et this result as erinn l/abnormal. [facility]annCHEM DPAIL8633-36-65 20:12:000.4[facility]annCHEM PANEL 2017-12-15 20:12:0014[facility]annCHEM ZXZOU6916-52-53 20:12:0017[facility]annCHEM ENWTG7624-41-95 20:12:68370Zjvgtdkl HermannCHEM UZKSI3414-41-56 20:12:003.4[facility]annCHEM XHURX2936-40-95 20:12:007.4[facility]annCHEM CSFJN5290-83-21 20:12:00 Test Item Value Reference Range Interpretation Comments B/C Ratio (test code = B/C Ratio) 9 04-02 [facility]annCHEM XQMQA0616-29-17 20:12:00 Test Item Value Reference Range Interpretation Comments A/G Ratio (test code = A/G Ratio) 0.8 1 0.7-1.6 [facility]annCHEM NPRDM2533-94-82 20:12:004.0[facility]annCARDIAC ENZYMES 2017-12-15 20:12:00<0.02[facility]annCARDIAC VYMRASL8371-51-92 20:12:25656 [facility]annCARDIAC RYFBUJZ4864-77-76 20:12:005.4[facility]annCARDIAC HMBPQVG2151-22-90 20:12:00 Test Item Value Reference Range Interpretation Comments CK MB Index (test 1.4 1 See_Comment [Automate d message] The code = CK MB Index) [facility] generated this result transmit emerson reference range : <=2.5. The reference range was not used to interpr et this result as erinn l/abnormal. [facility]annCHEM AUSMV8837-25-61 20:12:000.4[facility]annCHEM PANEL 2017-12-15 20:12:0014[facility]annCHEM ZEBTX3125-59-03 20:12:0017[facility]annCHEM UMRSE8368-15-25 20:12:81681Cglreaon HermannCHEM UWSFX7694-08-71 20:12:003.4[facility]annCHEM PLIUV6497-33-07 20:12:007.4[facility]annCHEM ZUTRA4034-94-01 20:12:00 Test Item Value Reference Range Interpretation Comments B/C Ratio (test code = B/C Ratio) 9 1 6-25 [facility]annCHEM KQJTY9965-80-70 20:12:00 Test Item Value Reference Range Interpretation Comments A/G Ratio (test code = A/G Ratio) 0.8 1 0.7-1.6 [facility]annCHEM ZPGGQ1913-23-49 20:12:004.0[facility]annCARDIAC ENZYMES 2017-12-15 16:39:00<0.02[facility]annCARDIAC ZBZLPPZ4213-91-43 16:39:71590 [facility]annCARDIAC QYXIQVU8042-26-61 16:39:004.8[facility]annCARDIAC UQGYSOI9509-00-56 16:39:00 Test Item Value Reference Range Interpretation Comments CK MB Index (test 1.4 1 See_Comment [Automate d message] The code = CK MB Index) system w [employer] generated this result transmit emerson reference range : <=2.5. The reference range was not used to interpr et this result as erinn l/abnormal. [facility]annCARDIAC ZJNHILX7176-42-83 16:39:00<0.02[facility] [place] CARDIAC RMCEFCF7723-54-65 16:39:91014Hjobwdmj HermannCARDIAC TQWSKNA0886-52-22 16:39:004.8[facility]annCARDIAC FPMBQZE4794-53-02 16:39:00 Test Item Value Reference Range Interpretation Comments CK MB Index (test 1.4 1 See_Comment [Automate d message] The code = CK MB Index) system [employer] generated this result transmit emerson reference range : <=2.5. The reference range was not used to interpr et this result as erinn l/abnormal. [facility]annCARDIAC KLVASZU4811-61-99 16:39:00<0.02[facility] CARDIAC ZZBEAVY9515-21-77 16:39:50732Pccmuxca HermannCARDIAC PFUMSSX3470-10-63 16:39:004.8[facility]annCARDIAC WGIUSIP1988-23-27 16:39:00 Test Item Value Reference Range Interpretation Comments CK MB Index (test 1.4 1 See_Comment [Automate d message] The code = CK MB Index) system w [employer] generated this result transmit emerson reference range : <=2.5. The reference range was not used to interpr et this result as erinn l/abnormal. [facility]annURINE WLDB8061-30-90 14:38:0020.0[facility] CHEM 2017-12-15 14:38:0031[facility]annUR[facility] NHLT1474-79-51 14:38:0022[facility]annUR[facility] FFEP1252-49-78 14:38:93420.9[facility]annUR[facility] RSHC7810-19-59 14:38:00 Test Item Value Reference Range Interpretation Comments U Prot/Creat (test code = U 4.35 1 Prot/Creat) [facility] XDCY8619-15-52 14:38:0056.70[facility] CHEM 2017-12-15 14:38:14288Lzcbfama HermannURINE GBYH2594-44-45 14:38:00None Seen (12/15/17 8:38 AM)[facility] IVFV5657-15-66 14:38:0020.0[facility]UR[facility] XWNH4808-40-76 14:38:0031[facility]UR[facility] UMHN8051-47-87 14:38:0022[facility] BXLA0298-31-73 14:38:86268.9[facility] [place] URINE KCAO8996-11-83 14:38:00 Test Item Value Reference Range Interpretation Comments U Prot/Creat (test code = U 4.35 1 Prot/Creat) [facility] FBQZ0376-48-70 14:38:0056.70[facility] CHEM 2017-12-15 14:38:64420Fierlsxx HermannURINE YXTX2843-68-01 14:38:00None Seen (12/15/17 8:38 AM)[facility] CIJX6277-42-68 14:38:0020.0[facility] HJPS4896-55-10 14:38:0031[facility] XSFC1558-12-06 14:38:0022[facility] DQSU3473-60-14 14:38:05502.9[facility] [place] URINE HDFK4677-20-31 14:38:00 Test Item Value Reference Range Interpretation Comments U Prot/Creat (test code = U 4.35 1 Prot/Creat) [facility] VLPN4902-10-18 14:38:0056.70[facility] CHEM 2017-12-15 14:38:80554Fyltvuvu HermannURINE RFXD2155-75-28 14:38:00None Seen (12/15/17 8:38 AM)[facility] AND [id number] 14:33:00Performed *NA*(12/15/17 8:33 AM)[facility] AND BLNLS2540-11-59 14:33:0050[facility] AND ALQNJ5301-70-59 14:33:00Negative (12/15/17 8:33 AM)[facility] AND WMFHM0394-67-49 14:33:00Small *ABN*(12/15/17 8:33 AM)[facility] AND SMLTQ5903-48-65 14:33:00Negative (12/15/17 8:33 AM)[facility] AND QVDTB7655-43-44 14:33:003[facility] AND STOOL 2017-12-15 14:33:001[facility] AND GEHZW1451-22-00 14:33:00Slight *ABN*(12/15/17 8:33 AM)[facility] AND [id number] 14:33:00 Test Item Value Reference Range Interpretation Comments UA Spec Grav (test code = UA Spec 1.008 1 Grav) [facility] AND [id number] 14:33:00 Test Item Value Reference Range Interpretation Comments UA pH (test code = UA pH) 5.0 1 5.0-8.0 [facility] [id number] 14:33:00Negative *NA*(12/15/17 8:33 AM) [facility] AND [id number] 14:33:00Performed *NA*(12/15/17 8:33 AM) [facility] FVHBD9297-15-45 14:33:0050[facility] AND OUEZJ1256-26-43 14:33:00Negative (12/15/17 8:33 AM)[facility] STOOL 2017-12-15 14:33:00Small *ABN*(12/15/17 8:33 AM)[facility] STOOL 2017-12-15 14:33:00Negative (12/15/17 8:33 AM)[facility] STOOL 2017-12-15 14:33:003[facility] AND YKXBK4687-91-96 14:33:001[facility] AND ABFZQ3903-28-24 14:33:00Slight *ABN*(12/15/17 8:33 AM)[facility] AND [id number] 14:33:00 Test Item Value Reference Range Interpretation Comments UA Spec Grav (test code = UA Spec 1.008 1 Grav) [facility] [id number] 14:33:00 Test Item Value Reference Range Interpretation Comments UA pH (test code = UA pH) 5.0 1 5.0-8.0 [facility] AND [id number] 14:33:00Negative *NA*(12/15/17 8:33 AM) [facility] AND [id number] 14:33:00Performed *NA*(12/15/17 8:33 AM) [facility] [id number] 14:33:0050[facility] AND NDDJC3448-52-18 14:33:00Negative (12/15/17 8:33 AM)[facility] STOOL 2017-12-15 14:33:00Small *ABN*(12/15/17 8:33 AM)[facility] STOOL 2017-12-15 14:33:00Negative (12/15/17 8:33 AM)[facility] STOOL 2017-12-15 14:33:003[facility] AND [id number] 14:33:001[facility] AND [id number] 14:33:00Slight *ABN*(12/15/17 8:33 AM)[facility] AND ALUPC7844-08-30 14:33:00 Test Item Value Reference Range Interpretation Comments UA Spec Grav (test code = UA Spec 1.008 1 Grav) [facility] [id number] 14:33:00 Test Item Value Reference Range Interpretation Comments UA pH (test code = UA pH) 5.0 1 5.0-8.0 [facility] AND [id number] 14:33:00Negative *NA*(12/15/17 8:33 AM) [facility]CARDIAC [id number] 12:48:00 Test Item Value Reference Range Interpretation Comments CK MB Index (test 1.3 1 See_Comment [Automate d message] The code = CK MB Index) system w [employer] generated this result transmit emerson reference range : <=2.5. The reference range was not used to interpr et this result as erinn l/abnormal. [facility]CARDIAC MVMTLEM7566-77-31 12:48:106769Rrxoqoov HermannCARDIAC CICKJCS8826-62-90 12:48:35242Tjwfbjdw [facility]CARDIAC OSEPIFM8281-47-49 12:48:00 4.8[facility]annCARDIAC MIGTLEM4527-83-47 12:48:00<0.02[facility] CHEM [id number] 12:48:00 Test Item Value Reference Range Interpretation Comments A/G Ratio (test code = A/G Ratio) 0.8 1 0.7-1.6 [facility]annCHE[facility] [id number] 12:48:007.0[facility]annCHEM PANEL 2017-12-15 12:48:003.9[facility]annCHEM DIKOR8051-86-57 12:48:003.1[facility]annCHEM YZRHY6184-48-04 12:48:000.4[facility]annCHEM EHDLO1288-97-08 12:48:77984Lgiivfpm HermannCHEM ZCDHQ6549-09-73 12:48:0015[facility]annCHEM BZVZT7547-85-66 12:48:0013[facility]annCHEM AWXWW6040-00-50 12:48:00 Test Item Value Reference Range Interpretation Comments B/C Ratio (test code = B/C Ratio) 9 1 6-25 [facility] LdweoelKLDDMKNWMC2578-18-71 12:48:001.17[facility]annCARDIAC ENZYMES 2017-12-15 12:48:00 Test Item Value Reference Range Interpretation Comments CK MB Index (test 1.3 1 See_Comment [Automate d message] The code = CK MB Index) system w [employer] generated this result transmit emerson reference range : <=2.5. The reference range was not used to interpr et this result as erinn l/abnormal. [facility]CARDIAC MMSIHQJ7639-55-66 12:48:838078Iactiwrl HermannCARDIAC YQCOBHD5767-54-69 12:48:31558Blqrqbgn [facility]CARDIAC PRMEHIF2973-28-54 12:48:00 4.8[facility]annCARDIAC JOOPTTA5025-40-22 12:48:00<0.02[facility] CHEM [id number] 12:48:00 Test Item Value Reference Range Interpretation Comments A/G Ratio (test code = A/G Ratio) 0.8 1 0.7-1.6 [facility]annCHE[facility] [id number] 12:48:007.0[facility]annCHEM PANEL 2017-12-15 12:48:003.9[facility]annCHEM HXVLK5171-82-19 12:48:003.1[facility]annCHEM RYJDT6463-69-92 12:48:000.4[facility]annCHEM GWFHX1732-81-87 12:48:94819Okgilkeh HermannCHEM GCTQG8952-06-77 12:48:0015[facility]annCHEM MQUTN0899-06-01 12:48:0013[facility]annCHEM XRMIU9211-93-64 12:48:00 Test Item Value Reference Range Interpretation Comments B/C Ratio (test code = B/C Ratio) 9 1 6-25 [facility] TffyvqjLHUMKORDVL6836-04-60 12:48:001.17[facility]annCARDIAC ENZYMES 2017-12-15 12:48:00 Test Item Value Reference Range Interpretation Comments CK MB Index (test 1.3 1 See_Comment [Automate d message] The code = CK MB Index) [facility] generated this result transmit emerson reference range : <=2.5. The reference range was not used to interpr et this result as erinn l/abnormal. [facility]annCARDIAC YRXEBER7189-74-44 12:48:089884Bavajqwv HermannCARDIAC OYCQRDN2335-32-05 12:48:71757Npxzxmkc HermannCARDIAC CZTRRSD3710-74-69 12:48:00 4.8[facility]annCARDIAC JDPIIWE6132-58-22 12:48:00<0.02[facility] CHEM [id number] 12:48:00 Test Item Value Reference Range Interpretation Comments A/G Ratio (test code = A/G Ratio) 0.8 1 0.7-1.6 [facility] HermannCHEM [id number] 12:48:007.0[facility]annCHEM PANEL 2017-12-15 12:48:003.9[facility]annCHEM [id number] 12:48:003.1[facility]annCHEM AXWXN8015-85-86 12:48:000.4[facility]annCHEM SDDWT9150-63-00 12:48:70522Blkfifvq HermannCHEM DRTUI6391-12-18 12:48:0015[facility] HermannCHEM WLAJW2833-64-91 12:48:0013[facility] HermannCHEM DUPKF1575-71-30 12:48:00 Test Item Value Reference Range Interpretation Comments B/C Ratio (test code = B/C Ratio) 9 1 6-25 [facility] DtxtgojOLWHQAZTAD0297-64-47 12:48:001.17[facility] [place]
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
[2021-09-09 19:51] VITALS: TEMP 98; O2SAT 99
[2021-09-09 19:53] VITALS: BP 186/87
== END 2021-09-09 19:47 | disposition home or self-care (01) ==
LOC: ER 16:59
DX: G89.11 Acute pain due to trauma (principal); M62.838 Other muscle spasm; V49.50XA Passenger injured in collision with unspecified motor vehicles in traffic accident, initial encounter; E11.22 Type 2 diabetes mellitus with diabetic chronic kidney disease; I13.2 Hypertensive heart and chronic kidney disease with heart failure and with stage 5 chronic kidney disease, or end stage renal disease; I50.9 Heart failure, unspecified; N18.6 End stage renal disease
CPT/HCPCS: 70450; 72125; 99283

== ENCOUNTER 2021-10-18 18:48 | Emergency (ER) | payer OTHER ==
--- OUTSIDE RECORDS SUMMARY | 2021-10-18 19:23 | XMS REPORT | Continuity of Care Document ---
:1960 Author Organization [facility] t Address [address] [place] [address] Care Team Providers Name Role Phone Andrew Primary Care Physician BONI SHRESTHA Attending Clinician Unavailable Lorrie Attending Clinician Desirae CRUZ Attending Clinician BONI SANDRA Attending Clinician Unavailable BONI GOMEZ Attending Clinician Unavailable REBEL Attending Clinician Unavailable MOUNA RACHEL Attending Clinician Unavailable RAFA MOORE Attending Clinician Unavailable DOUGLAS ROSENTHAL Attending Clinician Unavailable BONI SHRESTHA Admitting Clinician Unavailable BONI SANDRA Admitting Clinician Unavailable REBEL Admitting Clinician Unavailable Payers Payer Name Policy Type Policy Number Effective Date Expiration Date S ource Problems Condition Condition Condition Status Onset Resolution Last Treating Co mments Source Name Details Category Date Date Treatment Clinician Date ESRD Diagnosis Active 2019-102020-08-12 Mem oria NEEDING 0-29 08:39:00 l DIALYSIS, ESRD 00:00: [place] VOLUME NEEDING 00 OVERLOAD DIALYSIS, VOLUME OVERLOAD Active 08/06/2020 Venu PEARSON - Diagnosis Active 2019-102020-08-06 Memoria FLUID 0-29 16:50:[address] SENT 00:00: Mercedez nn - FLUID 00 OVERLOAD Active 08/06/2020 [facility] [place] DIALYSIS Diagnosis Active 2019-102020-07-24 M emoria ISSUE 08:37:00 l DIALYSIS 00:00: Rafael n ISSUE 00 Active 07/24/2020 [facility] [place] PERITONITI Diagnosis Active 2020-07-09 Memoria S, 07-06 16:32:00 l DIABETES, 00:00: [place] ESRD ON PERITONITI 00 DIALYSIS S, DIABETES, ESRD ON DIALYSIS Active 07/06/2020 [facility] [place] ABD PAIN Diagnosis Active 2020-07-06 M emoria 07-06 07:06:00 l ABD PAIN 00:00: Rafael n 00 Active 07/06/2020 [facility] Dyspnea on Dyspnea on Disease Active U nivers exertion exertion 06-21 ity of 00:00: [place] 00 Medical Branch Dyspnea Dyspnea Disease Active Univers 06-21 ity of 00:00: [place] 00 Medical Branch WEAKNESS Diagnosis Active 2020-08-04 [facility] AND 05-21 11:45:00 l SWELLING WEAKNESS 00:00: Herm hannah AND 00 SWELLING Active 05/21/2020 [facility] [place] Colon Colon Disease Active Overview: Univer s cancer cancer 05-13 Formattin ity of screening screening 00:00: [place] 00 note Medical might be Branch different from the original. Added automatic ally from request for surgery [id number] ESRD (end ESRD (end Disease Active Uni vers stage stage 6-18 ity of renal renal 00:00: [place] disease) disease) 00 Medica l Branch GIB GIB Disease Active Univers (gastroint (gastroint -15 it y of estinal estinal 00:00: [place] bleeding) bleeding) 00 Medi sony Branch Gastrointe Gastrointe Disease Active Overview : Univers stinal stinal -15 Formattin ity of hemorrhage hemorrhage 00:00: g of this [place] with with 00 note Medical melena melena might be Branch different from the original. Added automatic ally from request for surgery [id number] NAUSEA/VOM Diagnosis Active 2020-03-23 Memoria ITING 03-23 01:05:00 l 00:00: [place] NAUSEA/VOM 00 ITING Active 03/23/2020 [facility] Obesity Obesity Disease Active Univers (BMI (BMI 5-27 ity of 30-39.9) 30-39.9) 00:00: [place] 00 Medical Branch FEVER Diagnosis Active 2020-02-26 Mem oria 4-27 11:06:00 l FEVER 00:00: [place] 00 Active 02/03/2020 [facility] [place] Gallbladde Gallbladde Disease Active Overview : Univers r polyp r polyp 2-06 Formattin ity o f 00:00: g of this 00 note Medical might be Branch different from the original. Added automatic ally from request for surgery [id number] AMS, Diagnosis Active 2019-10-31 Mem oria HYPONATREM 10-28 11:04:00 l IA AMS, 00:00: [place] HYPONATREM 00 IA Active 0 [facility] NUMBNESS Diagnosis Active 2019-10-28 M emoria 10-28 20:30:00 l NUMBNESS 00:00: Rafael n 00 Active 10/28/2019 [facility] [place] AMS Diagnosis Active 2018-102019-09-23 Mem oria 10-14 21:56:00 l AMS 10:52: [place] 00 Active 08/14/2019 [facility] [place] PNA Diagnosis Active 2019-04-05 Mem oria 04-05 20:15:00 l PNA 00:00: [place] 00 Active 04/05/2019 [facility] [place] DIZZINES, Diagnosis Active 2019-04-15 Memoria PNEUMONIA, 04-05 21:55:00 l END STAGE 00:00: [place] RENAL DIS DIZZINES, 00 PNEUMONIA, END STAGE RENAL DIS Active 04/05/2019 [facility] [place] ESRD Diagnosis Active 2017-102018-12-14 Mem oria NEEDING 0-13 09:50:00 l DIALYSIS, ESRD 00:00: [place] ACUTE NEEDING 00 PULMONARY DIALYSIS, E ACUTE PULMONARY E Active 07/21/[address] Diagnosis Active 2017-102018-07-21 Mem oria REFERRAL 0-13 21:30:00 l 00:00: [place] REFERRAL 00 Active 07/21/[address] Diagnosis Active 2017-102018-07-20 Annie oria REFFERAL 0-12 20:08:00 l 00:00: [place] REFFERAL 00 Active 07/20/2018 [facility] [place] RENAL/DO Diagnosis Active 2018-07-31 M emoria NOT USE 05-23 12:39:00 l FOR RENAL/DO 06:00: Rafael n CHARGES NOT USE 00 F/C NOTES FOR O CHARGES F/C NOTES O Active 05/23/2018 [facility] NEW Diagnosis Active 2018-05-23 Mem oria EVALUATION 05-09 10:28:00 l NEW 00:00: [place] EVALUATION 00 Active 05/09/2018 [facility] HYPERTENSI Diagnosis Active 2018-04-16 Memoria VE 04-14 13:14:00 l URGENCY, 08:00: [place] CHEST PAIN HYPERTENSI 00 VE URGENCY, CHEST PAIN Active 04/14/2018 [facility] CHEST PAIN Diagnosis Active 2018-04-15 Memoria 04-14 01:42:00 l CHEST 08:00: [place] PAIN 00 Active 04/14/2018 [facility] ACUTE Diagnosis Active 2018-03-19 Mem oria DYSPNEA 03-16 13:39:00 l ACUTE 00:00: [place] DYSPNEA 00 Active 03/16/2018 [facility] [place] WEAKNESS Diagnosis Active 2018-03-17 M emoria 03-16 05:41:00 l WEAKNESS 00:00: Rafael n 00 Active 03/16/2018 [facility] [place] ESRD (end ESRD (end Disease Active Uni vers stage stage 4-28 ity of renal renal 00:00: [place] disease) disease) 00 Medica l on on Branch dialysis dialysis IN NEED OF Diagnosis [facility] 01-22 18:51:00 l IN NEED 00:00: [place] OF 00 DIALYSIS Active 01/22/2018 [facility] [place] SOB Diagnosis Active 2017-12-15 [facility] 12-15 07:37:00 l SOB 00:00: [place] 00 Active 12/15/2017 [facility] [place] ACUTE Diagnosis Active 2017-12-15 Mem oria RENAL 12-15 10:05:00 l FAILURE, ACUTE 00:00: [place] FLUID RENAL 00 OVERLOAD, FAILURE, CHF FLUID OVERLOAD, CHF Active 12/15/2017 [facility] [place] DM DM Disease Active Univers (diabetes (diabetes ity of mellitus) mellitus) [facility] HTN HTN Disease Active Univers (hypertens (hypertens it y of ion) ion) [facility] DIZZINESS Diagnosis Active 2019-04-15 Memoria AND 21:55:00 l GIDDINESS [place] DIZZINESS AND GIDDINESS Active [facility] DYSPNEA, Diagnosis Active 2018-03-19 M emoria UNSPECIFIE 13:39:00 l D DYSPNEA, Rafael n UNSPECIFIE D Active [facility] ACUTE Diagnosis Active 2017-12-15 Mem oria KIDNEY 10:05:00 l FAILURE, ACUTE [place] UNSPECIFIE KIDNEY D FAILURE, UNSPECIFIE D Active [facility] HEART Diagnosis Active 2017-12-15 Mem oria FAILURE, 10:05:00 l UNSPECIFIE HEART [place] nn D FAILURE, UNSPECIFIE D Active [facility] ACUTE Diagnosis Active 2018-12-14 Mem oria PULMONARY 09:50:00 l EDEMA ACUTE [place] PULMONARY EDEMA Active [facility] End stage Problem 2020-08-14 Me moria renal 23:33:32 l disease End [place] stage renal disease 08/14/2020 [facility] Type 2 Problem 2019-02-10 Memor ia diabetes 12:48:45 l mellitus Type 2 Rafael n with diabetes diabetic mellitus chronic with kidney diabetic disease chronic kidney disease 02/10/2019 [facility] Hypertensi Problem 2019-02-10 M emoria ve chronic 12:48:45 l kidney [place] disease Hypertensi with stage ve chronic 5 chronic kidney kidney disease disease or with stage end stage 5 chronic renal kidney disease disease or end stage renal disease 02/10/2019 [facility] Dependence Problem 2019-02-10 M emoria on renal 12:48:45 l dialysis [place] Dependence on renal dialysis 02/10/2019 [facility] Anxiety Problem 2019-02-06 Kojo lynn disorder, 14:42:13 l unspecifie Anxiety Her meeks d disorder, unspecifie d 02/06/2019 [facility] Sleep Problem 2019-02-10 Memor ia apnea, 12:48:45 l unspecifie Sleep Mercedez nn d apnea, unspecifie d 02/10/2019 [facility] Other long Problem 2019-02-06 M emoria term 14:42:13 l (current) Other Rafael n drug mcc therapy (current) drug therapy 02/06/2019 [facility] Pericardia Problem 2019-02-10 M emoria l effusion 12:48:45 l (noninflam Rafael n matory) Pericardia l effusion (noninflam matory) 02/10/2019 [facility] Nausea Problem 2019-02-06 Memor ia 14:42:13 l Nausea [place] 02/06/2019 [facility] Other Problem 2019-02-06 Memor ia symptoms 14:42:13 l and signs Other Rafael n concerning symptoms food and and signs fluid concerning intake food and fluid intake 02/06/2019 [facility] Pneumonia, Problem 2019-04-10 M emoria unspecifie 22:02:39 l d organism Rafael n Pneumonia, unspecifie d organism 04/10/2019 [facility] Altered Problem 2019-11-07 Kojo lynn mental 23:47:53 l status, Altered Rafael n unspecifie mental d status, unspecifie d 11/07/2019 [facility] Acute Problem 2019-02-10 Memor ia pulmonary 12:48:45 l edema Acute [place] pulmonary edema 02/10/2019 [facility] Acute Problem 2019-02-10 Memor ia kidney 12:48:45 l failure, Acute [place] unspecifie kidney d failure, unspecifie d 02/10/2019 [facility] Fluid Problem 2019-02-10 Memor ia overload, 12:48:45 l unspecifie Fluid Mercedez nn d overload, unspecifie d 02/10/2019 [facility] Obesity, Problem 2019-02-10 Mem oria unspecifie 12:48:45 l d Obesity, Rafael n unspecifie d 02/10/2019 [facility] Body mass Problem 2019-02-10 Me moria index 12:48:45 l (BMI) Body [place] 33.0-33.9, mass index adult (BMI) 33.0-33.9, adult 02/10/2019 [facility] Chronic Problem 2019-02-10 Kojo lynn obstructiv 12:48:45 l e Chronic [place] pulmonary obstructiv disease, e unspecifie pulmonary d disease, unspecifie d 02/10/2019 [facility] Dyspnea, Problem 2018-03-23 Mem oria unspecifie 01:53:56 l d Dyspnea, Rafael n unspecifie d 03/23/2018 [facility] Single Problem 2020-08-10 Memor ia liveborn 09:04:08 l , Single [place] delivered liveborn vaginally , delivered vaginally 08/10/2020 [facility] Hypocalcem Problem 2018-03-28 M emoria ia 12:58:31 l [place] Hypocalcem ia 03/28/2018 [facility] Other Problem 2018-03-28 Memor ia disorders 12:58:31 l of Other [place] phosphorus disorders metabolism of phosphorus metabolism 03/28/2018 [facility] Hypo-osmol Problem 2018-03-28 M emoria ality and 12:58:31 l hyponatrem Rafael n ia Hypo-osmol ality and hyponatrem ia 03/28/2018 [facility] Iron Problem 2018-03-28 Memor ia deficiency 12:58:31 l anemia, Iron [place] unspecifie deficiency d anemia, unspecifie d 03/28/2018 [facility] Secondary Problem 2018-03-28 Fl moria hyperparat 12:58:31 l hyroidism [place] of 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 03/28/2018 [facility] Acute Problem 2018-03-28 Memor ia diastolic 12:58:31 l (congestiv Acute Mercedez nn e) heart diastolic failure (congestiv e) heart failure 03/28/2018 [facility] Anemia in Problem 2018-03-28 Me moria other 12:58:31 l chronic Anemia [place] diseases in other classified chronic elsewhere diseases classified elsewhere 03/28/2018 [facility] Atheroscle Problem 2018-03-28 emoria rosis of 12:58:31 l renal [place] artery Atheroscle rosis of renal artery 03/28/2018 [facility] Obstructiv Problem 2018-03-28 M emoria e sleep 12:58:31 l apnea [place] (adult) Obstructiv (pediatric e sleep ) apnea (adult) (pediatric ) 03/28/2018 [facility] Anxiety Problem Resolve 2020-08-14 Mem oria (finding) d 23:33:32 l Anxiety [place] (finding) Resolved Problem 08/14/2020 [facility] [place] [facility] Sleep Problem Resolve 2020-08-14 Kojo lynn apnea d 23:33:32 l (finding) Sleep Rafael n apnea (finding) Resolved Problem 08/14/2020 [facility] [place] [facility] Pericardia Problem Active 2020-08-14 M emoria l effusion 23:33:32 l (disorder) Rafael n Pericardia l effusion (disorder) Active Problem 08/14/2020 [facility] Simple Problem Active 2020-08-14 Memor ia obesity 23:33:32 l (disorder) Simple Herm hannah obesity (disorder) Active Problem 08/14/2020 [facility] ALTERED Diagnosis Active 2019-10-31 Me moria MENTAL 11:04:00 l STATUS, ALTERED Rafael n UNSPECIFIE MENTAL D STATUS, UNSPECIFIE D Active [facility] [place] PERITONITI Diagnosis Active 2020-07-09 Memoria S, 16:32:00 l UNSPECIFIE Rafael n D PERITONITI S, UNSPECIFIE D Active [facility] HYPO-OSMOL Diagnosis Active 2019-10-31 Memoria ALITY AND 11:04:00 l HYPONATREM Rafael n IA HYPO-OSMOL ALITY AND HYPONATREM IA Active [facility] TYPE 2 Diagnosis Active 2020-07-09 Mem oria DIABETES 16:32:00 l MELLITUS TYPE 2 Rafael n WITHOUT DIABETES COMPLIC MELLITUS WITHOUT COMPLIC Active [facility] [place] END STAGE Diagnosis Active 2020-08-12 Memoria RENAL 08:39:00 l DISEASE END [place] STAGE RENAL DISEASE Active [facility] FLUID Diagnosis Active 2020-08-12 Mem oria OVERLOAD, 08:39:00 l UNSPECIFIE FLUID Mercedez nn D OVERLOAD, UNSPECIFIE D Active [facility] [place] SINGLE Diagnosis Active 2020-08-09 Mem oria LIVEBORN 07:58:00 l , SINGLE [place] DELIVERED LIVEBORN VAGINA INFANT, DELIVERED VAGINA Active [facility] PNEUMONIA, Diagnosis Active 2019-04-15 Memoria UNSPECIFIE 21:55:00 l D ORGANISM Rafael n PNEUMONIA, UNSPECIFIE D ORGANISM Active [facility] History of Past Illness Condition Condition Condition Status Onset Resolution Last Treating Co mments Source Name Details Category Date Date Treatment Clinician Date Localized Problem 2019-102020-07-26 2020-07-26 Memoria edema 0-16 21:30:35 21:30:35 l 17:00: [place] Localized 00 edema 07/24/2020 07/26/2020 [facility] Hypokalemi Problem 2019-102020-07-26 2020-07-26 Memoria a 0-16 21:30:35 21:30:35 l 17:00: [place] Hypokalemi 00 a 07/24/2020 07/26/2020 [facility] Type 2 Problem 2020-07-17 2020-07-17 M emoria diabetes 07-06 22:26:03 22:26:03 l mellitus Type 2 17:00: Rafael n without diabetes 00 complicati mellitus ons without complicati ons 07/06/2020 07/17/2020 [facility] Anemia, Problem 2020-05-23 2020-05-23 Memoria unspecifie 05-21 21:26:40 21:26:40 l d Anemia, 17:00: [place] unspecifie 00 d 05/21/2020 05/23/2020 [facility] Constipati Problem 2020-05-23 2020-05-23 Memoria on, 05-21 21:26:40 21:26:40 l unspecifie 17:00: Rafael n d Constipati 00 on, unspecifie d 05/21/2020 05/23/2020 [facility] Pain in Problem 2020-02-05 2020-02-05 Memoria right hip 02-02 21:56:20 21:56:20 l Pain in 17:00: [place] right hip 00 02/03/2020 02/05/2020 [facility] Fever, Problem 2020-02-05 2020-02-05 M emoria unspecifie 02-02 21:56:20 21:56:20 l d Fever, 17:00: [place] unspecifie 00 d 02/03/2020 02/05/2020 [facility] Unspecifie Problem 2020-02-05 2020-02-05 Memoria d fall, 02-02 21:56:20 21:56:20 l initial 17:00: [place] encounter Unspecifie 00 d fall, initial encounter 02/03/2020 02/05/2020 [facility] Other Problem 2017-102019-02-10 2019-02-10 M emoria specified 0 12:48:45 12:48:45 l complicati Other 04:09: Mercedez nn on of specified 04 vascular complicati prosthetic on of devices, vascular implants prosthetic and devices, grafts, implants initial and encounter grafts, initial encounter 07/31/2018 02/10/2019 [facility] Hyperkalem Problem 2018-2019-02-06 2019-02-06 Memoria ia 0-12 14:42:13 14:42:13 l 05:00: [place] Hyperkalem 00 ia 07/20/2018 02/06/2019 [facility] Unspecifie Problem 2017-2019-02-06 2019-02-06 Memoria d 0-12 14:42:13 14:42:13 l complicati 05:00: Rafael cee on of Unspecifie 00 internal d prosthetic complicati device, on of implant internal and graft, prosthetic initial device, encounter implant and graft, initial encounter 07/20/2018 02/06/2019 [facility] Hypertensi Problem 2017-2018-03-28 2018-03-28 Memoria ve heart 12-28 12:58:31 12:58:31 l disease 03:49: [place] with heart Hypertensi 05 failure ve heart disease with heart failure 12/28/2017 03/28/2018 [facility] Chronic Problem 2018-01-25 2018-01-25 Memoria kidney -16 04:46:18 04:46:18 l disease, Chronic 05:00: Mercedez nn unspecifie kidney 00 d disease, unspecifie d 01/22/2018 01/25/2018 [facility] Allergies, Adverse Reactions, Alerts This patient has no known allergies or adverse reactions. Social History Social Habit Start Date Stop Date Quantity Comments Source History [facility] 2020-03-23 2020-03-[address] [facility] [place] Financial 00:00:00 00:00:00 Medical Branch History [facility] Food 2020-03-23 2020-03-23 1 [facility] [place] Worry 00:00:00 00:00:00 Medical Branch History [facility] Food 2020-03-23 2020-03-23 1 [facility] [place] Scarcity 00:00:00 00:00:00 Medical Branch History [facility] 2020-03-23 2020-03-23 2 [facility] [place] [facility] Med 00:00:00 00:00:00 Medical Bra nch History [facility] 2020-03-23 2020-03-23 2 [facility] Transport Non-Med 00:00:00 00:00:00 Medical Branch Tobacco use and 2020-03-04 2020-03-04 Never used [facility] [place] exposure 00:00:00 00:00:00 Medical Branch Social History 2017-12-15 2017-12-15 [facility] 18:14:42 18:14:42 Sex Ass[birth year] At [birth year] [facility] 00:00:00 00:00:00 Medical Branch Smoking Status Start Date Stop Date Source Never smoker [facility] Medical Branch Medications Ordered Filled Start Stop Current Ordering Indication Dosage Frequency Signature Comments Components Source Medication Medication Date Date Medication? Clinician (SIG) Name Name diazePAM Yes 10mg Take 10 mg Uni vers (VALIUM) 5 7-15 by mouth 2 ity of mg tablet 10:42: (two) [place] 32 times Medical daily as Branch needed. vitamin b Yes 1{tbl} Take 1 Univ ers complex-vit 7-15 tablet by ity of villatoro 10:42: mouth [place] c-folic 32 daily. Medical acid Branch (TIM-CONOR) 0.8 mg tablet zolpidem 10 Yes 10mg Take 10 mg Univers mg tablet 7-15 by mouth ity of 10:42: at bedtime [place] 32 as needed Medical for Branch Insomnia. fentaNYL 2019-10 No Route: IV, Mem oria (ANES) 10-12 Drug form: l 18:10: INJ, ONCE, Stop date: 08/12/20 12:10:00 RESIDENT DOCTOR lidocaine 2019-10 No Route: IV, Me moria (ANES) 10-12 Drug form: l 18:10: INJ, ONCE, Stop date: 08/12/20 12:10:00 RESIDENT DOCTOR propofol 2019-10 No Route: IV, Mem oria (ANES) 10-12 Drug form: l 18:10: INJ, ONCE, Stop date: 08/12/20 12:10:00 RESIDENT DOCTOR ondansetron 2019-10 No Route: IV, Memoria (ANES) 10-12 Drug form: l 18:10: INJ, ONCE, Stop date: 08/12/20 12:10:00 RESIDENT DOCTOR metoclopram 2019-10 No Route: IV, Memoria jeanna (ANES) 10-12 Drug form: l 18:10: INJ, ONCE, [place] 00 Stop date: 08/12/20 12:10:00 RESIDENT DOCTOR ceFAZolin 2020-1 No Route: IV, Me moria (ANES) - Drug form: l 17:50: INJ, ONCE, [place] Stop date: 08/12/20 11:50:00 RESIDENT DOCTOR Sodium 2019- No Route: IV, Memor ia Chloride 1-04 Total l 0.9% IV 17:14: Volume: [place] (ANES) 500 00 500, Start mL date: 08/12/20 11:14:00 RESIDENT DOCTOR, Stop date: 08/12/20 12:14:00 RESIDENT DOCTOR Sodium 2019-10 No 500 mL, Memoria Chloride 1- Rate: 75 l 0.9% IV 500 16:52: ml/hr, Herm hannah mL 00 Infuse over: 6.7 hr, Route: IV, Dosing Weight 111.182 kg, Total Volume: 500, Start date: 08/12/20 10:52:00 RESIDENT DOCTOR, Duration: 1 doses or times, Stop date: 08/12/20 17:33:00 RESIDENT DOCTOR, 2.32, m2, 0 Potassium 2019-10 No Notes: Memori a Chloride - (Same as: l 13:46: K-Dur ) [place] "Do Not Crush" Give with food and full glass of water For patients unable to swallow tablet, dissolve in one half glass of water. Allow about 2 minutes for the tablets to disintegra te. Stir before giving to prepare slurry and administer . Please exclude Patient s with feeding tube less than 14 Singaporean (Dobhoff, J-tube etc) and pediatric and patients. Hydralazine 2019-10 No 10 mg, Kojo lynn 1- Route: l 21:11: IVP, Q4H, [place] Dosing Weight 111.182, kg, PRN Hypertensi on, Start date: 08/11/20 15:11:00 RESIDENT DOCTOR, Duration: 30 day, Stop date: 09/10/20 15:10:00 RESIDENT DOCTOR Potassium 2019- No Notes: Memori a Chloride -03 (Same as: l 14:12: K-Dur 20) [place] 00 "Do Not Crush" Give with food and full glass of water For patients unable to swallow tablet, dissolve in one half glass of water. Allow about 2 minutes for the tablets to disintegra te. Stir before giving to prepare slurry and administer . Please exclude Patient s with feeding tube less than 14 Singaporean (Dobhoff, J-tube etc) and pediatric and patients. epoetin 2019-10 No Notes: Memoria franca 10-10 (Same as: l 15:00: Procrit) [place] epoetin franca 2000 unit/1 ml VL Non-formul heydi For dialysis use only (Epogen) WASTE: F/P - Red; E -Red MEDICATION WASTE Product Size: 2000 mg Product Wasted: ___ mg Ambien 2019-10 No Notes: Memoria - (Same As: l 04:24: Ambien) [place] 00 Melatonin 3 2019-10 No Notes: Kojo lynn MG Extended 10-10 (Same as: l Release 03:57: Melatonin) Herm hannah Tablet 00 Ambien 2019-10 No PO, Memoria 10-10 Bedtime, 0 l 02:55: Refill(s) [place] Zolpidem 2019-10 Yes 10 mg = 1 Kojo lynn tartrate 10 10-10 tab, PO, l MG Oral 02:55: Bedtime, Rafael n Tablet 00 PRN for [Ambien] sleep, 0 Refill(s) heparin 2019-10 No 10,000 Memoria - unit, 10 l 15:10: mL, Route: [place] 00 DIALYSIS, Drug form: INJ, ONCALL, Dosing Weight 111.182, kg, PRN Dialysis, Priority: STAT, Start date: 08/09/20 9:10:00 RESIDENT DOCTOR, Duration: 1 doses or times, Stop date: Limited # of times, 0 tramadol 2019-10 No Notes: Not Mem oria hydrochlori 10-09 to exceed l de 50 MG 05:16: 400mg/day. Her meeks Oral Tablet 00 (Same As: Ultram) epoetin 2019-10 No Notes: Memoria franca 0-31 (Same as: l 14:30: Procrit) [place] epoetin franca 82584 unit/1 ml VL. Non-formul heydi For dialysis use only. (Procrit) WASTE: F/P - Red; E -Red MEDICATION WASTE Product Size: 37175 unit Product Wasted: ___ unit Sodium 2019-10 No 250 mL, Memoria Chloride 0-31 Rate: To l 0.9% 14:13: prime line [place] (titrate) 00 and flush 250 mL remaining blood products., Dosing Weight 111.182, kg, Route: IV, Total Volume: 250, Priority: Routine, Start Date: 08/08/20 9:13:00 CDT, Duration: 1 day, Stop date: 08/09/20 9:12:00 RESIDENT DOCTOR, Replace Every: 24 hr, 0 Amlodipine 2019-10 No 1 cap, Memor ia 10 MG / 0-31 Route: PO, l Benazepril 14:00: Drug Form: H ermann hydrochlori 00 CAP, de 20 MG Dosing Oral Weight Capsule 111.182, kg, Daily, Start date: 08/08/20 9:00:00 CDT, Duration: 30 day, Stop date: 09/06/20 9:00:00 RESIDENT DOCTOR carvedilol 2019-10 No 12.5 mg, Mem oria 0-31 Route: PO, l 14:00: Drug form: [place] 00 TAB, Q12H, Dosing Weight 111.182, kg, Start date: 08/08/20 9:00:00 CDT, Duration: 30 day, Stop date: 09/06/20 21:00:00 RESIDENT DOCTOR amLODIPine 2019-10 No Notes: Memor ia 0-31 (Same as: l 14:00: Norvasc) [place] 00 lisinopril 2019-10 No Notes: Memor ia 0-31 (Same as: l 14:00: Prinivil, [place] Zestril) Dilaudid 2019-10 No Notes: Memoria 0-31 Same as: l 13:46: Dilaudid Epogen 2019-10 No 11,000 Memoria 0-31 unit, l 13:01: Route: [place] 00 SUB-Q, Drug form: INJ, Q-M-W-F, Dosing Weight 111.182, kg, Priority: NOW, Start date: 08/08/20 8:01:00 CDT, Duration: 30 day, Stop date: 09/04/20 9:00:00 RESIDENT DOCTOR Morphine 2019-10 No Notes: Memoria 0-31 (Same l 10:27: as:MORPhin [place] 00 e Sulfate) Morphine 2019-10 No Notes: Memoria 0-31 (Same l 01:44: as:MORPhin [place] 00 e Sulfate) normal 2019-10 No 2,000 mL, Memori a saline 0.9% 0-30 Rate: 100 l IV 2,000 mL 22:22: ml/hr, Herm hannah 00 Infuse over: 20 hr, Route: IV, Dosing Weight 111.182 kg, Total Volume: 2,000, Start date: 08/07/20 17:22:00 CDT, Duration: 30 day, Stop date: 09/06/20 17:21:00 RESIDENT DOCTOR, 2.32, m2, 0 Lasix 2019-10 No 80 mg, Memoria 0-30 Route: l 13:00: IVP, Drug [place] 00 form: INJ, BID Diuretic, Dosing Weight 117.002, kg, Start date: 08/07/20 8:00:00 CDT, Duration: 30 day, Stop date: 09/05/20 16:00:00 RESIDENT DOCTOR Magnesium 2019-10 No Notes: Memori a Sulfate 0-30 WASTE: F/P l 12:58: - Sink; E [place] 00 - Municipal Trash Bin Potassium 2019-10 No Notes: Memori a Chloride 0-30 (Same as: l 12:58: K-Dur ) [place] 00 "Do Not Crush" Give with food and full glass of water For patients unable to swallow tablet, dissolve in one half glass of water. Allow about 2 minutes for the tablets to disintegra te. Stir before giving to prepare slurry and administer . Please exclude Patient s with feeding tube less than 14 [place]an (Dobhoff, J-tube etc) and pediatric and patients. Potassium 2019-10 No Notes: Memori a Chloride 0-30 Infuse at l 11:00: a rate of [place] 00 10 mEq/hr. (Same as: KCL) normal [...] Duration: 30 day, Stop date: 09/06/20 5:36:00 RESIDENT DOCTOR, 2.32, m2 Hydralazine 2019-10 No Notes: Kojo lynn Hydrochlori 0-30 (Same as: l de 50 MG 06:50: Apresoline Her meeks Oral Tablet ) May interfere w/enteral feedings Take With Food. Ambien 2019-10 No Notes: Memoria 0-30 (Same As: l 05:20: Ambien) heparin 2019-10 No Notes: Memoria 0-30 porcine l 05:00: heparin Lasix 2019-10 No Notes: Memoria 0-30 (Same as: l 01:32: Lasix) MEDICATION WASTE Product Size: 40 mg Product Wasted: ___ mg Ondansetron 2019-10 No Notes: Kojo lynn 0-30 (Same as: l 01:31: Zofran) [place] 00 MEDICATION WASTE Product Size: 4 mg Product Wasted: ___ mg Acetaminoph 2019-10 No Notes: Do M emoria en 325 MG / 0-30 not exceed l Hydrocodone 01:31: 4gm/day of [place] Bitartrate 00 acetaminop 10 MG Oral hen. Tablet (Same as: [Mccaskill Mccaskill 10/325] 325/10) Acetaminoph 2019-10 No Notes: Kojo lynn en 325 MG / 0-30 (Same as: l Hydrocodone 01:31: Mccaskill [place] nn Bitartrate 00 325/5) Do 5 MG Oral not exceed Tablet 4gm/day of [Mccaskill acetaminop 5/325] hen. Dilaudid 2019-10 No 1 [...] Duration: 30 day, Stop date: 09/05/20 19:08:00 RESIDENT DOCTOR, 0 Glucagon 2020- No 1 mg, Memoria 0-30 Route: IM, l 01:09: Drug form: PDR/INJ, PRN, Dosing Weight 117.002, kg, PRN Blood Glucose Results, Start date: 08/06/20 20:09:00 CDT, Duration: 30 day, Stop date: 09/05/20 19:08:00 RESIDENT DOCTOR, 0 Magnesium 2020-1 No Notes: Memori a [...] s with feeding tube less than 14 [place]an (Dobhoff, J-tube etc) and pediatric and patients. [...] CDT, Stop date: 08/06/20 17:56:00 CDT Morphine 2020- No 4 mg, Memoria 0-29 Route: l [...] 20 MG Pharmacy: [facility] [place], 170.18, cm, 07/06/20 5:14:00 CDT, Height, 105, kg, 07/06/20 5:14:00 CDT, Weight cefdinir 2019-10 Yes 300 mg = 1 Mem oria 300 MG Oral 0-07 cap, PO, l Capsule 17:35: Daily, X 7 Herm hannah 00 day, # 7 cap, 0 Refill(s), Pharmacy: [facility] [place], 170.18, cm, 07/06/20 5:14:00 CDT, Height, 105, kg, 07/06/20 5:14:00 CDT, Weight Metronidazo 2019-10 Yes 500 mg = 1 Memoria le 500 MG 0-07 tab, PO, l Oral Tablet 17:35: Q8H, X 7 He rmann [Flagyl] 00 day, # 21 tab, 0 Refill(s), Pharmacy: [facility] [place], 170.18, cm, 07/06/20 5:14:00 CDT, Height, 105, kg, 07/06/20 5:14:00 CDT, Weight Protonix 2019-10 No Notes: Memoria 0-07 Tablet l 12:30: should not [place] 00 be chewed or crushed. (Same as: Protonix) Potassium 2019-10 No Notes: Memori a Chloride 0-06 (Same as: l 22:47: K-Dur 20) [place] 00 "Do Not Crush" Give with food and full glass of water For patients unable to swallow tablet, dissolve in one half glass of water. Allow about 2 minutes for the tablets to disintegra te. Stir before giving to prepare slurry and administer . Please exclude Patient s with feeding tube less than 14 [place]an (Dobhoff, J-tube etc) and pediatric and patients. Clonidine 2019-10 No Notes: Memori a 0-06 (Same As: l 22:46: Catapres) [place] 00 Sucralfate 2019-10 No Notes: May M emoria 100 MG/ML 0-06 interfere l Oral 18:00: w/enteral [place] Suspension 00 feeds - [Carafate] Take 1 hr before or 2 hr after antacids, dairy pdt, meals & minerals - On empty stomach. sevelamer 2019-10 No Notes: Memori a 0-06 Same as: l 17:00: Renvela [place] 00 Potassium 2019-10 No Notes: Memori a Chloride 0-06 (Same as: l 13:00: K-Dur 20) [place] 00 "Do Not Crush" Give with food and full glass of water For patients unable to swallow tablet, dissolve in one half glass of water. Allow about 2 minutes for the tablets to disintegra te. Stir before giving to prepare slurry and administer . Please exclude Patient s with feeding tube less than 14 [place]an (Dobhoff, J-tube etc) and pediatric and patients. Ceftriaxone 2019-10 No Notes: Kojo lynn 0-05 (Same As: l 23:00: Rocephin). [place] 00 Use with 100 mL NS and [...] s with feeding tube less than 14 [place] (Dobhoff, J-tube etc) and pediatric and patients. [...] s with feeding tube less than 14 [place]an (Dobhoff, J-tube etc) and pediatric and patients. Flagyl 2019-10 No Notes: Memoria 0-03 (Same as: l 23:00: Flagyl) [place] 00 Avoid alcohol. Potassium 2019-10 No Notes: Memori a Chloride 0-03 (Same as: l 16:13: K-Dur 20) [place] 00 "Do Not Crush" Give with food and full glass of water For patients unable to swallow tablet, dissolve in one half glass of water. Allow about 2 minutes for the tablets to disintegra te. Stir before giving to prepare slurry and administer . Please exclude Patient s with feeding tube less than 14 [place]an (Dobhoff, J-tube etc) and pediatric and patients. [...] 0-01 25 mL, l (D50W) 19:27: Route: [place] 00 IVP, Drug Form: INJ, Dosing Weight [...] s with feeding tube less than 14 [place] (Dobhoff, J-tube etc) and pediatric and patients. [...] s with feeding tube less than 14 [place] (Dobhoff, J-tube etc) and pediatric and patients. [...] 07-07 (Same as: l 14:00: Vasotec) Potassium 2019- No Notes: Memori a Chloride 07-07 (Same [...] s with feeding tube less than 14 [place] (Dobhoff, J-tube etc) and pediatric and patients. Epogen No Notes: Memoria 07-07 Same as: l 13:08: Retacrit) [place] 00 epoetin franca-epbx 84029 unit/1 ml VL. WASTE: F/P - Red; E Red MEDICATION WASTE Product Size: 02660 unit Product Wasted: ___ unit potassium No [...] s with feeding tube less than 14 [place]an (Dobhoff, J-tube etc) and pediatric and patients. carvedilol No Notes: Memor ia 07-07 Give with l 02:00: food. [place] 00 (Same As: Coreg) tamsulosin No Notes: [...] sodium, 07-06 porcine l porcine 21:00: heparin [place] 2500 UNT/ML 00 Injectable Solution Hydralazine No [...] day, Stop date: 08/05/20 9:00:00 CDT calcium 2019- No Notes: Memoria acetate 667 07-06 Same as l MG Oral 18:00: Phoslo Gel Herm hannah Capsule 00 Cap Hydroxyzine No Notes: Kojo lynn Hydrochlori 07-06 (Same as: l de 25 MG 18:00: Atarax) Rafael n Oral Tablet 00 Avoid alcohol. Vancomycin No 2000 mg: Me moria 07-06 infuse l 18:00: over 2.5 [place] 00 hours For adult patients only: Round to nearest 250 mg per Medical Staff approval MEDICATION WASTE Product Size: 1000 mg Product Wasted: ___ mg acetaminoph No Notes: Do M emoria en-codeine 07-06 not exceed l #3 17:42: 4gm/day of [place] acetaminop hen. (Same as: Tylenol with Codeine # 3) Diazepam No Notes: Memoria 07-06 (Same as: l 17:42: Valium) [place] 00 potassium No Notes: Memori a chloride 07-06 (Same as: l 16:00: Potassium Chloride) Hydromorpho No Notes: Kojo lynn ne 07-06 Same as: l 13:57: Dilaudid Acetaminoph No Notes: Do M emoria en 325 MG / 07-06 not exceed l Hydrocodone 13:57: 4gm/day of [place] Bitartrate 00 acetaminop 10 MG Oral hen. Tablet (Same as: [Mccaskill Mccaskill 10/325] 325/10) Potassium No 60 mEq, Memor [...] moria 07-06 infuse l 11:04: over 2.5 hours For adult patients only: Round to nearest 250 mg per Medical Staff approval MEDICATION WASTE Product Size: 1000 mg Product Wasted: ___ mg Morphine 2019-0 No Notes: Memoria 07-06 (Same l 10:32: as:MORPhin e Sulfate) furosemide 2020-0 Yes [id number] 80mg Take 1 U nivers (LASIX) 80 9-15 tablet by ity of mg tablet 00:00: mouth 00 every Medical morning Branch and evening. tamsulosin 2020-0 Yes [id number] .4mg Take 1 U nivers 0.4 mg 24 9-15 capsule by ity of hr capsule 00:00: mouth daily. Medical Branch Acetaminoph No Notes: Do M emoria en 300 MG / 8-13 not exceed l Codeine 14:43: 4gm/day of acetaminop 30 MG Oral hen. Tablet (Same [...] of water or juice. (Same as: Miralax) calcium 2020-0 Yes [id number] 1334mg Take 2 Un seun acetate 667 6-22 capsules ity of mg capsule 00:00: by mouth 3 [place] 00 (three) Medical times Branch daily with meals. Morphine 2020-0 No 4 mg, Memoria 6-15 Route: l 13:48: IVP, ONCE, [place] 00 Dosing Weight 104, kg, Priority: STAT, Start date: 03/23/20 8:48:00 CDT, Stop date: 03/23/20 8:48:00 CDT Zofran 2020-0 No 4 mg, Memoria 6-15 Route: l 13:48: IVP, Drug [place] 00 form: INJ, ONCE, Dosing Weight 104, kg, Priority: STAT, Start date: 03/23/20 8:48:00 CDT, Stop date: 03/23/20 8:48:00 CDT Acetaminoph 2020-0 No 1 tab, Kojo lynn en 325 MG / 6-15 Route: PO, l Hydrocodone 10:53: Drug Form: [place] Bitartrate 00 TAB, 5 MG Oral Dosing Tablet Weight [Mccaskill 104, kg, 5/325] ONCE, STAT, Start date: 03/23/20 5:53:00 CDT, Stop date: 03/23/20 5:53:00 CDT Acetaminoph 2020-0 No Notes: Do M emoria en 325 MG / 6-15 not exceed l Hydrocodone 09:02: 4gm/day of [place] Bitartrate 00 acetaminop 10 MG Oral hen. Tablet (Same as: [Mccaskill Mccaskill 10/325] 325/10) Sodium 2020-0 No 250 mL, Memoria Chloride 6-15 Rate: To l 0.9% 06:23: prime line [place] (titrate) 00 and flush 250 mL remaining [...] Refill(s) Tablet [Tylenol with Codeine #3] Dilaudid 2019- No Notes: Memoria 02-02 Same as: l 22:39: Dilaudid [place] Hydralazine No 50 mg, 1 Me moria Hydrochlori -27 tab, l de 50 MG 22:20: Route: PO, Her meeks Oral Tablet 00 Drug form: TAB, ONCE, Dosing Weight 104.545, kg, Start date: 02/03/20 17:20:00 CDT, Stop date: 02/03/20 17:20:00 CDT Zofran 2019- No Notes: Memoria 02-02 (Same as: l 20:19: Zofran) [place] 00 MEDICATION WASTE Product Size: 4 mg Product Wasted: ___ mg Morphine No Notes: Memoria 02-02 (Same l 20:18: as:MORPhin [place] 00 e Sulfate) Acetaminoph Yes 1-2 tab, Me moria en 325 MG / -28 PO, Q4-6H, l Hydrocodone 20:46: PRN Pain, H ermann Bitartrate 00 X 5 day, # 10 MG Oral 20 tab, 0 Tablet Refill(s), [Mccaskill Pharmacy: ] [facility] [place] vancomycin 2019- No 2001 mg: Me moria - infuse l 19:00: over 2.5 [place] 00 hours For adult patients only: Round to nearest 250 mg per Medical Staff approval MEDICATION WASTE Product Size: 1000 mg Product Wasted: ___ mg Amlodipine No 1 cap, Memor ia 10 MG / 11-04 Route: PO, l Benazepril 19:00: Drug Form: H ermann hydrochlori 00 CAP, de 20 MG Dosing Oral Weight Capsule 99.091, kg, TID, Start date: 11/04/19 13:00:00 RESIDENT DOCTOR, Duration: 30 day, Stop date: 12/04/19 9:00:00 RESIDENT DOCTOR amLODIPine No Notes: Memor ia 11-04 (Same as: l 19:00: Norvasc) [place] 00 lisinopril No Notes: Memor ia 11-04 (Same as: l 19:00: Prinivil, [place] 00 Zestril) Amlodipine Yes 1 cap, PO, M emoria 10 MG / 11-04 TID, 0 l Benazepril 16:40: Refill(s) He rm hydrochlori 00 de 20 MG Oral Capsule Potassium No Notes: Memori a Chloride 11-04 (Same as: l 16:23: K-Dur 20) [place] 00 "Do Not Crush" Give with food and full glass of water For patients unable to swallow tablet, dissolve in one half glass of water. Allow about 2 minutes for the tablets to disintegra te. Stir before giving to prepare slurry and administer . Please exclude Patient s with feeding tube less than 14 [place]an (Dobhoff, J-tube etc) and pediatric and patients. epoetin No Notes: Memoria franca 11-04 (Same as: l 15:00: Procrit) epoetin franca 98365 unit/1 ml VL. For dialysis use only. (Procrit) WASTE: F/P - Red; E -Red MEDICATION WASTE Product Size: 22992 unit Product Wasted: ___ unit Lisinopril No Notes: Memor ia 11-04 (Same as: l 14:47: Prinivil, [place] 00 Zestril) Vancomycin No 2001 mg: Me moria 11-04 infuse l 14:40: over 2.5 [place] 00 hours For adult patients only: Round to nearest 250 mg per Medical Staff approval MEDICATION WASTE Product Size: 1000 mg Product Wasted: ___ mg Lasix No Notes: Memoria 11-03 (Same as: l 23:00: Lasix) [place] 00 May cause GI upset. Give with food or milk. vancomycin No Notes: Memor ia + Sodium 11-03 TIME l Chloride 21:00: CRITICAL [place] nn 0.9% IV 100 00 MEDICATION mL (Same As: Vancocin) For adult patients only: Round to nearest 250 mg per Medical Staff approval Potassium No Notes: Memori a Chloride 1-26 (Same as: l 15:32: K-Dur 20) [place] 00 "Do Not Crush" Give with food and full glass of water For patients unable to swallow tablet, dissolve in one half glass of water. Allow about 2 minutes for the tablets to disintegra te. Stir before giving to prepare slurry and administer . Please exclude Patient s with feeding tube less than 14 [place] (Dobhoff, J-tube etc) and pediatric and patients. Epogen No Notes: Memoria 11-03 (Same as: l 15:32: Procrit) epoetin franca 22328 unit/1 ml VL. For dialysis use only. (Procrit) WASTE: F/P - Red; E -Red MEDICATION WASTE Product Size: 64840 unit Product Wasted: ___ unit Dilaudid No Notes: Memoria - Same as: l 18:03: Dilaudid heparin No 10,000 Memoria -25 unit, 10 l 02:00: mL, Route: DIALYSIS, Drug form: INJ, ONCALL, Dosing Weight 99.091, kg, Start date: 11/01/19 20:00:00 RESIDENT DOCTOR, Duration: 1 doses or times, 0 vancomycin No Notes: Memor ia + Sodium 1-24 TIME l Chloride 20:00: CRITICAL [place] nn 0.9% IV 100 00 MEDICATION mL (Same As: Vancocin) For adult patients only: Round to nearest 250 mg per Medical Staff approval potassium No Notes: Memori a chloride -24 (Same as: l 19:51: K-Dur 20) [place] 00 "Do Not Crush" Give with food and full glass of water For patients unable to swallow tablet, dissolve in one half glass of water. Allow about 2 minutes for the tablets to disintegra te. Stir before giving to prepare slurry and administer . Please exclude Patient s with feeding tube less than 14 [place]an (Dobhoff, J-tube etc) and pediatric and patients. Dilaudid No Notes: Memoria 1-24 Same as: l 18:47: Dilaudid Potassium 2019-0 No Notes: Memori a Chloride -24 (Same as: l 16:00: K-Dur 20) [place] 00 "Do Not Crush" Give with food and full glass of water For patients unable to swallow tablet, dissolve in one half glass of water. Allow about 2 minutes for the tablets to disintegra te. Stir before giving to prepare slurry and administer . Please exclude Patient s with feeding tube less than 14 [place] (Dobhoff, J-tube etc) and pediatric and patients. heparin 2020-0 No 10,000 Memoria 1-24 unit, 10 l 01:00: mL, Route: [place] 00 DIALYSIS, Drug form: INJ, ONCALL, Dosing Weight 99.091, kg, Start date: 10/31/19 19:00:00 RESIDENT DOCTOR, Duration: 1 doses or times, 0 Albuterol 2020-0 No Notes: Memori a 0.833 MG/ML - (Same as: l / 15:09: Duoneb) [place] Ipratropium 00 [place] 0.167 MG/ML Inhalant Solution [DuoNeb] Potassium 2020-0 No Notes: Memori a Chloride - (Same as: l 11:58: K-Dur 20) "Do Not Crush" Give with food and full glass of water For patients unable to swallow tablet, dissolve in one half glass of water. Allow about 2 minutes for the tablets to disintegra te. Stir before giving to prepare slurry and administer . Please exclude Patient s with feeding tube less than 14 [place] (Dobhoff, J-tube etc) and pediatric and patients. heparin 2020-0 No 10,000 Memoria 1-23 unit, 10 l 05:00: mL, Route: [place] 00 DIALYSIS, Drug form: INJ, ONCALL, Dosing Weight 99.091, kg, Start date: 10/30/19 23:00:00 RESIDENT DOCTOR, Duration: 1 doses or times, 0 Potassium 2020-0 No Notes: Memori a Chloride 1-23 (Same as: l 04:05: K-Dur 20) "Do Not Crush" Give with food and full glass of water For patients unable to swallow tablet, dissolve in one half glass of water. Allow about 2 minutes for the tablets to disintegra te. Stir before giving to prepare slurry and administer . Please exclude Patient s with feeding tube less than 14 [place]an (Dobhoff, J-tube etc) and pediatric and patients. Tylenol 2020-0 No Notes: Do Memor ia 10-30 not exceed l 19:42: 4 gm/day. [place] 00 (Same as: Tylenol) Roxicodone No Notes: Memor ia 10-30 (Same as: l 19:41: Roxicodone 00 ) Acetaminoph 0 No 1 tab, Kojo lynn en 325 MG / 10-30 Route: PO, l Oxycodone 19:20: Drug Form: Jarad Schneideri 00 TAB, de 5 MG Dosing Oral Tablet Weight [Percocet 99.091, 5/325] kg, Q4H, PRN Pain Score 4-6, Start date: 10/30/19 13:20:00 RESIDENT DOCTOR, Duration: 30 day, Stop date: 11/29/19 13:19:00 RESIDENT DOCTOR vancomycin No 2000 mg: Me moria + Sodium 10-30 infuse l Chloride 18:00: over 2.5 [place] nn 0.9% IV 250 00 hours For mL adult patients only: Round to nearest 250 mg per Medical Staff approval MEDICATION WASTE Product Size: 1000 mg Product Wasted: ___ mg cefepime No Notes: Memoria 10-30 (Same As: l 16:00: Maxipime) 00 MEDICATION WASTE Product Size: 1000 mg Product Wasted: ___ mg Vancomycin No 2000 mg: Me moria 10-30 infuse l 16:00: over 2.5 [place] 00 hours For adult patients only: Round to nearest 250 mg per Medical Staff approval MEDICATION WASTE Product Size: 1000 mg Product Wasted: ___ mg NIFEdipine No Notes: Memor ia 90 mg oral 10-30 (Same as: l tablet, 15:00: Adalat [place] extended 00 CC,Procard release ia XL) "Do Not Crush" "Avoid grapefruit and grapefruit juice" Tim-Conor 0 No Tim-Conor Mem oria oral tablet 10-30 oral l 15:00: tablet, 1 [place] 00 tab, Route: PO, Daily, 10/30/19 9:00:00 RESIDENT DOCTOR, Duration: 30 day, Stop date: 11/28/19 9:00:00 RESIDENT DOCTOR Nephro-Conor 2019-0 No Notes: Kojo lynn Rx 10-30 (Same as: l 15:00: Nephro-Vit [place] 00 e Rx and Diatx) Give with food. Epoetin No Notes: Memoria Franca 10-30 (Same as: l 14:39: Procrit) [place] 00 epoetin franca 44458 unit/1 ml VL. For dialysis use only. (Procrit) WASTE: F/P - Red; E -Red MEDICATION WASTE Product Size: 31231 unit Product Wasted: ___ unit Potassium No Notes: Memori a Chloride 10-30 (Same as: l 14:38: K-Dur 20) [place] "Do Not Crush" Give with food and full glass of water For patients unable to swallow tablet, dissolve in one half glass of water. Allow about 2 minutes for the tablets to disintegra te. Stir before giving to prepare slurry and administer . Please exclude Patient s with feeding tube less than 14 [place]an (Dobhoff, J-tube etc) and pediatric and patients. carvedilol No Notes: Memor ia 10-30 Give with l 03:00: food. [place] 00 (Same As: Coreg) tamsulosin No Notes: Memor ia 10-30 (Same As: l 03:00: Flomax) [place] "Do Not Crush" Lactulose No Notes: Memori a 667 MG/ML 10-30 (Same l Oral 00:36: as:Chronul [place] Solution 00 ac) Lactulose No Notes: Memori a 10-30 Lactulose l 00:36: 300ml, Mar[place] Water for Irrigation 700ml - total volume = 1000ml tizanidine 0 No Notes: Memor ia 10-29 (Same As: l 22:22: Zanaflex) Hydralazine No Notes: Kojo lynn Hydrochlori 10-29 (Same as: l de 25 MG 22:00: Apresoline Her meeks Oral Tablet 00 ) May interfere w/enteral feedings Take With Food. calcium Yes 2,001 mg = Kojo lynn acetate 667 10-29 3 cap, PO, l MG Oral 21:57: TID, 0 [place] Capsule 00 Refill(s) Diazepam 2020-0 No Notes: Memoria 10-29 (Same as: l 21:25: Valium) Hydralazine No Notes: Kojo lynn 10-29 (Same as: l 18:50: Apresoline ) Push over 5 minutes acetaminoph No Notes: Do M emoria en-codeine 10-29 not exceed l #3 18:49: 4gm/day of acetaminop hen. (Same as: Tylenol with Codeine # 3) Lasix No Notes: Memoria 10-29 (Same as: l 15:00: Lasix) MEDICATION WASTE Product Size: 40 mg Product Wasted: ___ mg Docusate No Notes: Memoria 10-29 (Same as: l [...] s with feeding tube less than 14 [place]an (Dobhoff, J-tube etc) and pediatric and patients. Magnesium No Notes: Memori a Sulfate 10-29 WASTE: F/P l 14:55: - Sink; E - Municipal Trash Bin Diazepam Yes 10 mg, PO, Mem oria 10-29 PRN as l 08:31: needed for anxiety, 0 Refill(s) zolpidem 10 Yes 10 mg = 1 M emoria mg oral 10-29 tab, PO, l tablet 08:27: Bedtime, PRN as needed for insomnia, 0 Refill(s) Lasix No Notes: Memoria 10-29 (Same as: l 06:55: Lasix) MEDICATION WASTE Product Size: 40 mg Product Wasted: ___ mg Dextrose No 12.5 gm, Memor ia 50% Syringe 1-21 25 mL, l (D50W) 06:50: Route: IVP, Drug Form: INJ, Dosing Weight 90.909, kg, PRN, PRN Blood Glucose Results, Start date: 10/29/19 0:50:00 RESIDENT DOCTOR, Duration: 30 day, Stop date: 11/28/19 0:49:00 RESIDENT DOCTOR, 0 Glucagon No 1 mg, Memoria 10-29 Route: IM, l 06:50: Drug form: [place] 00 PDR/INJ, PRN, Dosing Weight 90.909, kg, PRN Blood Glucose Results, Start date: 10/29/19 0:50:00 RESIDENT DOCTOR, Duration: 30 day, Stop date: 11/28/19 0:49:00 RESIDENT DOCTOR, 0 Ondansetron No Notes: Kojo lynn 10-29 [...] as: l / 03:22: Duoneb) Ipratropium 00 [place] 0.167 MG/ML Inhalant Solution [DuoNeb] Albuterol No Notes: SEE Me moria 0.83 MG/ML 10-29 RT l Inhalant 03:22: DOCUMENTAT Her meeks Solution 00 ION (Same as: Proventil) carvedilol 2018-10 Yes 12.5 mg = Me moria 12.5 mg 10-20 1 tab, PO, l oral tablet 17:56: Q12H, # 60 [place] 00 tab, 0 Refill(s), Pharmacy: [facility] Pharmacy [facility] 2018-10 Yes 80 mg = 2 Me moria 40 MG Oral 1-12 tab, PO, l Tablet 17:56: TID, # 180 [place] nn 00 tab, 0 Refill(s), Pharmacy: [facility] Hydralazine 2018-10 Yes 50 mg = 2 M naeemrijulian Hydrochlori 1-12 tab, PO, l de 25 MG 17:56: Q8H, # 180 Her meeks Oral Tablet 00 tab, 0 Refill(s), Pharmacy: [facility] lisinopril 2018-10 Yes 40 mg = 1 Me moria 40 mg oral 1-12 tab, PO, l tablet 17:56: Daily, # [place] 00 30 tab, 0 Refill(s), Pharmacy: [facility] NIFEdipine 2018-10 Yes 90 mg = 1 Me moria 90 mg oral 1-12 tab, PO, l tablet, 17:56: Daily, # Rafael n extended 00 30 tab, 0 release Refill(s), Pharmacy: [facility] carvedilol 2018-10 No Notes: Memor ia 1-12 Give with l 03:00: food. (Same As: Coreg) NIFEdipine 2018-10 No 90 mg, Memor ia 60 mg oral -11 Route: PO, l tablet, 15:00: Drug form: Herm hannah extended 00 ERTAB, release Daily, Dosing Weight 96.364, kg, Start date: 08/19/19 9:00:00 RESIDENT DOCTOR, Duration: 30 day, Stop date: 09/17/19 9:00:00 RESIDENT DOCTOR, 0 lisinopril 2018-10 No Notes: Memor ia 1-11 (Same as: l 15:00: Prinivil, [place] Zestril) carvedilol 2018-10 No Notes: Memor ia 1-11 Give with l 03:00: food. (Same As: Coreg) Clonidine 2018-10 No Notes: Memori a 1-11 (Same As: l 00:45: Catapres) Clonidine 2018-10 No Notes: Memori a Hydrochlori 1-11 (Same As: l de 0.1 MG 00:44: Catapres) Her meeks Oral Tablet Hydralazine 2018-10 No Notes: Okjo lynn 1-10 (Same as: l 22:00: Apresoline [place] 00 ) May interfere w/enteral feedings Take With Food. Lisinopril 2018-10 No Notes: Memor ia 1-10 (Same as: l 20:11: Prinivil, [place] 00 Zestril) NIFEdipine 2018-10 No Notes: Memor [...] kg, Priority: NOW, Start date: 08/18/19 9:29:00 RESIDENT DOCTOR, Duration: 1 doses or times, 0 heparin 2018-10 No 10,000 Memoria 1-09 unit, 10 l 19:00: mL, Route: [place] DIALYSIS, Drug form: INJ, ONCALL, Dosing Weight 96.364, kg, Start date: 08/17/19 13:00:00 RESIDENT DOCTOR, Duration: 1 doses or times, 0 Sodium 2018-10 No 1,000 mL, Memori a Chloride 1-09 1,000 l 0.9% 18:06: ml/hr, [place] (Bolus) IV 00 Infuse Over: 1 hr, Route: IV, 1,000, Drug form: INJ, PRN, Priority: STAT, Dosing Weight 96.364 kg, Start date: 08/17/19 12:06:00 RESIDENT DOCTOR, Duration: 30 day, Stop date: 09/16/19 12:05:00 RESIDENT DOCTOR, PRN Dialysis, 0 Potassium 2018-10 No Notes: Memori a Chloride 1-08 (Same as: l 15:18: K-Dur 20) [place] 00 "Do Not Crush" Give with food and full glass of water For patients unable to swallow tablet, dissolve in one half glass of water. Allow about 2 minutes for the tablets to disintegra te. Stir before giving to prepare slurry and administer . Please exclude Patient s with feeding tube less than 14 Singaporean (Dobhoff, J-tube etc) and pediatric and patients. Seroquel 2018-10 No Notes: Memoria 1-08 (Same as: l 02:36: SEROquel) [place] 00 Ativan 2018-10 No Notes: Memoria 1-07 (Same as: l 21:45: Ativan) [place] 00 Ativan 2018-10 No Notes: Memoria 1-07 (Same as: l 19:03: Ativan) amLODIPine 2018-10 No Notes: Memor ia -07 (Same as: l 15:00: Norvasc) lisinopril 2018-10 No Notes: Memor ia - (Same as: l 15:00: Prinivil, Zestril) multivitami 2018-10 No Notes: Kojo lynn n 10-15 (Same l 15:00: as:One Tab Daily, Tab-A-Conor + Beta Carotene) Give with food. NIFEdipine 2018-10 No Notes: Memor ia 60 mg oral 10-15 (Same as: l tablet, 15:00: Adalat CC, Herm hannah extended Procardia release XL) Give on empty stomach. Take 1 hour before or 2 hours after meal; "Avoid grapefruit and grapefruit juice". Do not crush Haldol 2018-10 No Notes: Memoria 1-07 (Same as: l 10:28: Haldol) Haldol 2018-10 No Notes: Memoria 1-07 (Same as: l 10:25: Haldol) heparin 2018-10 No Notes: Memoria 1- porcine l 06:00: heparin tamsulosin 2018-10 No Notes: Memor ia -07 (Same As: l 03:00: Flomax) "Do Not Crush" Amlodipine 2018-10 No 1 cap, Memor ia 10 MG / 10-14 Route: PO, l Benazepril 23:00: Drug Form: H ermann hydrochlori 00 CAP, de 20 MG Dosing Oral Weight Capsule 100.17, kg, TID, Start date: 08/14/19 17:00:00 RESIDENT DOCTOR, Duration: 30 day, Stop date: 09/13/19 13:00:00 RESIDENT DOCTOR carvedilol 2018-10 No Notes: Memor ia 1-06 Give with l 23:00: food. [place] 00 (Same As: Coreg) Furosemide 2018-10 No Notes: Memor ia -06 (Same as: l 23:00: Lasix) [place] May cause GI upset. Give with food or milk. Hydralazine 2018-10 No Notes: Kojo lynn -06 (Same as: l 23:00: Apresoline [place] ) May interfere w/enteral feedings Take With Food Hydroxyzine 2018-10 No Notes: Kojo lynn Hydrochlori - (Same as: l de 25 MG 23:00: [...] crush Hydralazine 2018-10 No Notes: Kojo lynn - (Same as: l 21:58: Apresoline ) Push [...] Blood Glucose Results, Start date: 08/14/19 15:47:00 RESIDENT DOCTOR, Duration: 30 day, Stop date: 09/13/19 15:46:00 RESIDENT DOCTOR, 0 Glucagon 2018-10 No 1 mg, Memoria 10-14 Route: IM, l 21:47: Drug form: PDR/INJ, PRN, Dosing Weight 100.17, kg, PRN Blood Glucose Results, Start date: 08/14/19 15:47:00 RESIDENT DOCTOR, Duration: 30 day, Stop date: 09/13/19 15:46:00 RESIDENT DOCTOR, 0 Ondansetron 2018-10 No Notes: Kojo lynn -06 (Same as: l 21:47: Zofran) MEDICATION WASTE [...] tab, PO, l tablet 20:48: TID, 0 [place] 00 Refill(s) doxycycline Yes 100 mg = [...] tab, 0 Refill(s), Pharmacy: [id number] Miralax No Notes: Memoria 04-08 Dissolve l 14:36: in 8 oz of [place] 00 water or juice. (Same as: Miralax) tamsulosin No Notes: Memor ia 6-30 (Same As: l 02:00: Flomax) [place] "Do Not Crush" atorvastati No Notes: Kojo lynn n 6-30 (Same as: l 02:00: Lipitor) [place] 00 Zithromax + No 500 mg, Mem oria Sodium 04-06 Route: l Chloride 22:00: IVPB, [place] 0.9% IV 250 00 [id number], mL Dosing Weight 102.273, kg, Start date: 04/06/19 17:00:00 CDT, Duration: 7 day, Stop date: 04/12/19 17:00:00 CDT, ABX Indication : Pneumonia, 0 Hydralazine No Notes: Kojo lynn 6-29 (Same as: l 22:00: Apresoline [place] 00 ) May interfere w/enteral feedings Take With Food Lasix No Notes: Memoria 6-29 (Same as: l 22:00: Lasix) [place] 00 May cause GI upset. Give with food or milk. cefTRIAXone No Notes: Kojo lynn + sterile - Give IV l water 10 mL 21:00: push Rafael n 00 slowly over 5 minutes Give within one hour of reconstitu tion Reconstitu te Ceftriaxon e 1 g vial: 10 mL of SWFI Shake immediatel y & vigorously Procardia No Notes: Memori a XL 30 mg -29 (Same as: l oral 19:00: Adalat CC, [place] tablet, 00 Procardia extended XL) Give release on empty stomach. Take 1 hour before or 2 hours after meal; "Avoid grapefruit and grapefruit juice". Do not crush Alprazolam No Notes: Memor ia 2 MG Oral 6-29 With food l Tablet 18:22: or milk [place] [Xanax] 00 (Same as: Xanax) Hydralazine No Notes: Kojo lynn 6-29 (Same as: l 18:21: Apresoline [place] 00 ) Push over 5 minutes benazepril No 20 mg, Memor ia 6-29 Route: PO, l 14:00: Drug form: [place] 00 TAB, Daily, Dosing Weight 100.17, kg, Start date: 04/06/19 9:00:00 CDT, Duration: 30 day, Stop date: 05/05/19 9:00:00 CDT Saline No Notes: Memoria Flush 0.9% - preservati l 14:00: ve free. heparin No Notes: Memoria 6-29 porcine l 14:00: heparin lisinopril No Notes: Memor ia 6-29 (Same as: l 08:57: Prinivil, Zestril) Amlodipine No Notes: Memor ia 6- (Same as: l 08:56: Norvasc) [place] 00 carvedilol No Notes: Memor ia 6-29 Give with l 04:30: food. 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 Zithromax No 500 mg, Memor ia 04-06 Route: l 03:00: IVPB, [place] [id number], Dosing Weight 102.273, kg, Start date: 04/05/19 22:00:00 CDT, Duration: 7 day, Stop date: 04/11/19 22:00:00 CDT, ABX Indication : Pneumonia Ceftriaxone No 1 gm, Memor ia 6 Route: l 03:00: IVPB, [place] [id number], Dosing Weight 102.273, kg, Start date: 04/05/19 22:00:00 CDT, Duration: 7 day, Stop date: 04/11/19 22:00:00 CDT, ABX Indication : Pneumonia Glucagon No 1 mg, Memoria 29 Route: IM, l 02:03: Drug form: PDR/INJ, [...] -29 not exceed l 02:02: 4 gm/day. (Same as: Tylenol) Hydromorpho No Notes: Kojo lynn ne - Same as: l 01:54: Dilaudid Tramadol No Notes: Not Mem oria 6-29 to exceed l 01:54: 400mg/day. (Same As: [...] Duration: 30 day, Stop date: 08/20/18 21:00:00 RESIDENT DOCTOR tamsulosin 2017-10 No Notes: Memor ia 0-15 [...] ia 0-14 Give with l 14:00: food. [place] 00 (Same As: Coreg) calcium 2017-10 No Notes: Memoria acetate 667 0-14 Same as l MG Oral 14:00: Phoslo Gel Herm hannah Capsule 00 Cap Amlodipine 2017-10 No Notes: Memor ia 0-14 (Same as: l 14:00: Norvasc) [place] 00 Docusate 2017-10 No Notes: Memoria 0-14 [...] Memoria 0-14 TID, 0 l 11:45: Refill(s) [place] 00 Amlodipine 2017-10 Yes 1 cap, PO, [...] With food l Tablet 11:31: or milk [place] [Xanax] 00 (Same as: Xanax) Dilaudid 2017-10 [...] 0-14 unit, 10 l 06:00: mL, Route: [place] 00 DIALYSIS, Drug form: INJ, ONCALL, Dosing [...] l IV 1,000 mL 05:43: dialysis He prime and rinseback only, Rate: 0 ml/hr, Infuse over: 0, Route: IV, Dosing Weight 96.7 kg, Total Volume: 1,000, Start date: 07/22/18 0:43:00 CDT, Duration: 30 day, Stop date: 08/21/18 0:42:00 RESIDENT DOCTOR, 2.16, m2 Acetaminoph 2017-10 No Notes: Do [...] Memoria 0-14 Same as: l 05:07: Dilaudid [place] 00 Zofran 2017-10 No Notes: Memoria 0-14 (Same as: l 04:47: Zofran) [place] 00 MEDICATION WASTE Product Size: 4 mg Product Wasted: ___ mg Dilaudid 2017-10 No Notes: Memoria 0-14 Same as: l 04:46: Dilaudid [place] 00 Hydromorpho 2017-10 No Notes: Kojo lynn ne 0-14 Same as: l 04:13: Dilaudid Saline 2017-10 No Notes: Memoria Flush 0.9% 0-14 (Same as: l 02:24: BD [place] 00 Posiflush) lactulose 2017-10 No = 1 [...] Vitamin B 12 0.006 MG Oral Tablet [Tim-Conor] zolpidem 10 Yes 10 mg = 1 [...] tab, PO, l tablet 16:49: Daily, 0 [place] 00 Refill(s) tamsulosin No Notes: Memor ia 04-16 (Same As: l 02:00: Flomax) [place] "Do Not Crush" Hydralazine Yes 50 mg = 1 M emoria Hydrochlori 04-15 tab, PO, l de 50 MG 20:33: [...] 04-15 (Same as: l 20:22: K-Dur 20) "Do Not Crush" For patients unable to swallow tablet, dissolve in one half glass of water. Allow about 2 minutes for the tablets to disintegra te. Stir before giving to prepare slurry and administer . Please exclude Patient s with feeding tube less than 14 Singaporean (Dobhoff, J-tube etc) and pediatric and patients. With food and full glass of water Hydralazine No Notes: Kojo lynn Hydrochlori 04-15 (Same as: l de 25 MG 14:00: Apresoline Her meeks Oral Tablet 00 ) May interfere w/enteral feedings Take With Food. Lasix No Notes: Memoria 04-15 (Same as: l 14:00: Lasix) [place] May cause GI upset. Give with food or milk. Acetaminoph No 1 tab, Kojo lynn en 325 MG / 7-08 Route: PO, l Oxycodone 14:00: Drug Form: [...] ia -08 (Same as: l 14:00: Norvasc) [place] Morphine No 2 mg, 1 Memori a 7-08 mL, Route: l 09:49: IVP, Drug form: SOLN, Q4H, Dosing Weight 87.784, kg, PRN Pain Score 6-10, Start date: 04/15/18 4:49:00 CDT, Duration: 30 day, Stop date: 05/15/18 4:48:00 CDT Ambien No Notes: Memoria - (Same As: l 08:47: Ambien) Hydroxyzine Yes [...] 04-15 Route: IM, l 07:15: Drug form: [place] 00 PDR/INJ, PRN, Dosing Weight 74.091, kg, PRN Blood Glucose Results, Start date: 04/15/18 2:15:00 CDT, Duration: 30 day, Stop date: 05/15/18 2:14:00 CDT Ergocalcife No 50,000 Kojo lynn rol [id number] 04-15 IntlUnit, l UNT Oral 07:00: 1 [...] IV 04-15 500 ml/hr, l 06:34: Infuse Over: 0.5 hr, Route: IV, 250, Drug form: INJ, ONCE, Priority: STAT, Dosing Weight 74.091 kg, Start date: 04/15/18 1:34:00 CDT, Stop date: 04/15/18 1:34:00 CDT Hydralazine No 10 mg, Kojo lynn 08 Route: l 06:27: IVP, ONCE, [place] Dosing Weight 74.091, kg, Priority: STAT, Start date: 04/15/18 1:27:00 CDT, Stop date: 04/15/18 1:27:00 CDT Amlodipine No Notes: Memor ia 7-08 (Same as: l 03:50: Norvasc) [place] Hydralazine No Notes: Kojo lynn 7-08 (Same as: l 03:50: Apresoline [place] ) Push over 5 minutes Clonidine No 0.1 mg, Memor ia Hydrochlori 04-15 Route: PO, l de 0.1 MG 03:02: Drug form: Jarad rmann Oral Tablet 00 TAB, ONCE, Dosing Weight 74.091, kg, Priority: STAT, Start date: 04/14/18 22:02:00 CDT, Stop date: 04/14/18 22:02:00 CDT Clonidine No Notes: Memori a Hydrochlori 04-15 (Same As: l de 0.1 MG 00:45: Catapres) Her meeks Oral Tablet 00 Saline No Notes: Memoria Flush 0.9% 04-14 (Same as: l 23:55: BD [place] Posiflush) vancomycin No Notes: Memor ia + [...] cap, 0 Refill(s), Pharmacy: [facility] #[id number] heparin No 10,000 Memoria 6-11 unit, 10 [...] ia 6-10 (Same as: l 23:00: Roxicodone [place] ) Acetaminoph No Notes: Do M emoria en 325 MG / 6-10 not exceed l Oxycodone 22:00: 4gm/day of He rmann Hydrochlori 00 acetaminop de 5 MG hen. Oral Tablet (Same as: [Percocet Percocet-5 5/325] /325) Amlodipine No Notes: Memor ia 6-10 (Same as: l 14:00: Norvasc) [place] Alprazolam No Notes: Memor ia 2 MG Oral 6-10 With food l Tablet 04:20: or milk [place] [Xanax] 00 (Same as: Xanax) Vancomycin No 2000 mg: Me moria Pharmacy 6 infuse l Dosing + 03:00: [...] Memoria 6-09 (Same as: l 22:00: Lasix) [place] 00 May cause GI upset. Give with food or milk. Hydralazine No Notes: Kojo lynn 6-09 (Same as: l 20:10: Apresoline [place] 00 ) Push over 5 minutes Acetaminoph No Notes: Kojo lynn en 325 MG / 6- (Same as: l Hydrocodone 20:10: Mccaskill Mercedez nn Bitartrate 00 325/5) Do 5 MG Oral not exceed Tablet 4gm/day of [Mccaskill acetaminop 5/325] hen. phenol No Notes: Memoria 03-17 Chlorasept l 20:08: ic Bernard [place] 00 (Same as: Chlorasept ic, Sore Throat Bernard) WASTE: F/P - Black; E - Municipal Trash Bin Furosemide Yes 80 mg = 1 Me moria 80 MG Oral 03-17 tab, PO, l Tablet 15:44: BID, 0 [place] [Lasix] 00 Refill(s) amLODIPine Yes 10 mg = 1 Me moria 10 mg oral 03-17 tab, PO, l tablet 15:44: Daily, # [place] 00 30 tab, 0 Refill(s) carvedilol Yes 3.125 mg = M emoria 3.125 mg 03-17 1 tab, PO, l oral tablet 15:44: Q12H, # 60 [place] 00 tab, 0 Refill(s) calcium Yes 2,001 mg = Kojo lynn acetate 667 03-17 3 cap, PO, l MG Oral 15:44: TID, 0 [place] Capsule 00 Refill(s) Acetaminoph Yes 1 tab, [...] Notes: Memoria 03-17 porcine l 14:00: heparin [place] 00 heparin No 10,000 Memoria 03-17 unit, 10 [...] moria 03-17 infuse l 12:00: over 2.5 [place] 00 hours For adult patients only: Round to nearest 250 mg per Medical Staff approval MEDICATION WASTE Product Size: 1000 mg Product Wasted: ___ mg Sodium No 2,000 mL, Memori a Chloride 03-17 l 0.9% 12:00: ml/hr, [place] (Bolus) IV 00 Infuse Over: 1 hr, Route: IV, 2,000, Drug form: INJ, ONCE, Priority: STAT, Dosing Weight 98.182 kg, Start date: 03/17/18 7:00:00 CDT, PRN Dialysis cefepime No Notes: Memoria 03-17 (Same As: l 12:00: Maxipime) MEDICATION WASTE Product Size: 1000 mg Product Wasted: ___ mg Saline No Notes: Memoria Flush 0.9% 03-17 (Same as: l 11:53: BD [place] 00 Posiflush) Acetaminoph No Notes: Do M [...] Route: IM, l 11:49: Drug form: [place] 00 PDR/INJ, PRN, Dosing Weight 98.182, kg, PRN Blood Glucose Results, Start date: 03/17/18 6:49:00 CDT, Duration: 30 day, Stop date: 04/16/18 6:48:00 CDT Dextrose No 25 gm, 50 Kojo lynn 50% Syringe - mL, Route: l 11:49: IVP, Drug 00 Form: INJ, Dosing Weight 98.182, kg, PRN, PRN Blood Glucose Results, Start date: 03/17/18 6:49:00 CDT, Duration: 30 day, Stop date: 04/16/18 6:48:00 CDT Zosyn No Notes: Memoria - (Same as: l 10:49: Zosyn) [place] 00 Dosing based on Piperacill in component MEDICATION WASTE Product Size: 4500 mg Product Wasted: ___ mg Vancomycin No 2001 mg: Me moria 03-17 infuse l 10:49: over 2.5 [place] 00 hours For adult patients only: Round to nearest 250 mg per Medical Staff approval MEDICATION WASTE Product Size: 1000 mg Product Wasted: ___ mg Saline No Notes: Memoria Flush 0.9% 03-17 (Same as: l 07:36: BD [place] 00 Posiflush) Saline No Notes: Memoria Flush 0.9% 4-17 (Same as: l 00:31: BD [place] 00 Posiflush) Lasix No Notes: Memoria 3-15 (Same as: l 14:00: Lasix) [place] 00 May cause GI upset. Give with food or milk. calcitriol No 0.5 Memoria 0.5 mcg 3-14 microgram l oral 14:51: = 1 cap, [place] capsule 00 PO, Daily, # 30 cap, 0 Refill(s), Pharmacy: [id number] Ergocalcife Yes 50,000 Kojo lynn rol [id number] 3-14 IntlUnit = l UNT Oral 14:47: 1 cap, PO, Her meeks Capsule 00 qWeek, # 5 cap, 0 Refill(s), Pharmacy: [id number] Calcium No 2,000 mg = Kojo lynn Carbonate 3-14 4 tab, PO, l 500 MG 14:47: TID, # 168 Mercedez nn Chewable 00 tab, 0 Tablet Refill(s), Pharmacy: [facility] sevelamer No 2,400 mg = Me moria carbonate 3-14 3 tab, PO, l 800 mg oral 14:47: TID-Meals, [place] tablet 00 # 270 tab, 0 Refill(s), Pharmacy: [facility] Furosemide No 80 mg, PO, M emoria 80 MG Oral 3-14 Daily, # l Tablet 14:47: 30 ea, 0 [place] [Lasix] 00 Refill(s), Pharmacy: [facility] carvedilol No 3.125 mg = M emoria 3.125 mg 3-14 1 tab, PO, l oral tablet 14:47: Q12H, # 60 [place] 00 tab, 0 Refill(s), Pharmacy: [facility] amLODIPine No 10 mg = 2 Me moria 5 mg oral 3-14 tab, PO, l tablet 14:47: Daily, # [place] 00 60 tab, 0 Refill(s), Pharmacy: [facility] Calcium No Notes: Memoria Gluconate 3-14 [...] Memoria 3-11 Each 5ml l 14:00: contains 100mg elemental iron. Mix with NS Non-Formul heydi (Same as:Venofer ) Administer IV only. MEDICATION WASTE Product Size: 100 mg Product Wasted: ___ mg Calcium No Notes: Memoria Gluconate 3- WASTE: F/P l 11:35: - Sink; E - Municipal Trash Bin Kayexalate No Notes: Memor ia 3-11 (sodium l 01:11: polystyren e sulfonate 15 gm/60 ml CANDACE) Shake well before use. (Same as: Kayexalate , SPS) sodium No Notes: Memoria bicarbonate 3-11 (sodium l 8.4% 01:11: bicarb [place] 00 8.4% (1 mEq/ml) 50 ml syringe) Amlodipine No Notes: Memor ia 3-10 (Same as: l 15:00: Norvasc) Kayexalate No Notes: Memor ia 3-10 (sodium l 13:38: polystyren e sulfonate 15 gm/60 ml CANDACE) Shake well before use. (Same as: Kayexalate , SPS) Calcium No Notes: Memoria Gluconate 3- WASTE: F/P l 23:43: - Sink; E [place] - Municipal Trash Bin Dilaudid No Notes: Memoria 12-15 (Same as: l 21:38: Dilaudid) Morphine No Notes: Memoria 12-15 (Same l 19:02: as:MORPhin [place] 00 e Sulfate) Acetaminoph No 2 tabs, [...] 12-15 TID, 0 l Ben[facility]epril 18:19: [facility] MG Oral Capsule [...] / 12-15 (Same as: l Hydrocodone 14:31: Mccaskill Mercedez nn Bitartrate 00 325/5) Do 5 MG Oral not exceed Tablet 4gm/day of acetaminop hen. Saline No Notes: Memoria Flush 0.9% - (Same as: l 12:30: BD [place] 00 Posiflush) Lasix No Notes: Memoria 3-09 (Same as: l 10:45: Lasix) [place] 00 MEDICATION WASTE Product Size: 40 mg Product Wasted: ___ mg Immunizations Ordered Filled Immunization Date Status Comments [facility] e Immunization Name Name influenza virus 2020-07-15 Completed [facility] vaccine, 19:16:00 inactivated Hep B, Adol or Pedi 2018-08-16 Completed [facility] rs[facility] of Dosage 00:00:00 [facility] Influenza Virus 2018-06-28 Completed [facility] y of Vaccine 00:00:00 [facility] Hep B, Adol or Pedi 2018-05-08 Completed Unive rsity of Dosage 00:00:00 [facility] Hep B, Adol or Pedi 2018-04-05 Completed Unive rsity of Dosage 00:00:00 [facility] pneumococcal 2018-03-20 Completed [facility] 13-valent vaccine 21:53:00 Hep B, Adol or Pedi 2018-03-03 Completed Unive rsity of Dosage 00:00:00 [facility] Pneumococcal 2018-03-01 Completed [facility] f Polysaccharide, 00:00:00 [facility] PPSV23 (PNEUMOVAX) [place] PPD (TB) 2018-02-27 Completed [facility] 00:00:00 [facility] Vital Signs Vital Name Observation Time Observation Value Comments Source Heart Rate 2020-08-12 23:15:00 [facility] Respitory Rate 2020-08-12 23:15:00 [facility] [place] Systolic (mm Hg) 2020-08-12 23:15:00 Kojo rial [place] Diastolic (mm Hg) 2020-08-12 23:15:00 Mem o[facility] [place] Temperature Oral (F) 2020-08-12 23:15:00 98.1 F [facility] [place] Temperature Oral (F) 2020-08-12 19:20:00 98.0 F [facility] [place] Heart Rate 2020-08-12 19:20:00 [facility] [place] Respitory Rate 2020-08-12 19:20:00 [facility] al [place] Systolic (mm Hg) 2020-08-12 19:20:00 Kojo rial [place] Diastolic (mm Hg) 2020-08-12 19:20:00 Mem [facility] [place] Respitory Rate 2020-08-12 19:00:00 [facility] al [place] Systolic (mm Hg) 2020-08-12 19:00:00 Kojo rial [place] Diastolic (mm Hg) 2020-08-12 19:00:00 [facility] [place] Temperature Oral (F) 2020-08-12 14:00:00 97.7 F [facility] [place] Heart Rate 2020-08-12 14:00:00 [facility] [place] Temperature Oral (F) 2020-08-10 06:00:00 98.3 F [facility] [place] Heart Rate 2020-08-10 06:00:00 [facility] [place] Respitory Rate 2020-08-10 06:00:00 [facility] [place] Systolic (mm Hg) 2020-08-10 06:00:00 Kojo rial [place] Diastolic (mm Hg) 2020-08-10 06:00:00 [facility] [place] Temperature Oral (F) 2020-08-10 02:00:00 98.4 F [facility] [place] Heart Rate 2020-08-10 02:00:00 [facility] [place] Respitory Rate 2020-08-10 02:00:00 [facility] al [place] Systolic (mm Hg) 2020-08-10 02:00:00 Kojo rial [place] Diastolic (mm Hg) 2020-08-10 02:00:00 Mem orial [place] Temperature Oral (F) 2020-08-09 22:00:00 98.3 F [facility] [place] Heart Rate 2020-08-09 22:00:00 [facility] [place] Respitory Rate 2020-08-09 22:00:00 [facility] al [place] Systolic (mm Hg) 2020-08-09 22:00:00 Kojo rial [place] Diastolic (mm Hg) 2020-08-09 22:00:00 [facility] [place] Height 2020-08-07 03:47:00 170.18 cm [facility] [place] Weight 2020-08-07 03:47:00 [facility] [place] BMI Calculated 2020-08-07 03:47:00 [facility] al [place] Height 2020-08-06 18:59:00 152.4 cm [facility] [place] BMI Calculated 2020-08-06 18:59:00 [facility] [place] Weight 2020-08-06 18:59:00 [facility] [place] Respitory Rate 2020-07-24 16:17:00 [facility] [place] Systolic (mm Hg) 2020-07-24 16:17:00 Kojo rial [place] Diastolic (mm Hg) 2020-07-24 16:17:00 [facility] [place] Temperature Oral (F) 2020-07-24 16:17:00 98.0 F [facility] [place] Respitory Rate 2020-07-24 15:04:00 [facility] al [place] Systolic (mm Hg) 2020-07-24 15:04:00 Kojo rial [place] Diastolic (mm Hg) 2020-07-24 15:04:00 Mem orial [place] Heart Rate 2020-07-24 15:04:00 [facility] [place] Temperature Oral (F) 2020-07-24 15:04:00 97.9 F [facility] [place] Height 2020-07-24 14:45:00 170.18 cm [facility] [place] BMI Calculated 2020-07-24 14:45:00 [facility] [place] Weight 2020-07-24 14:45:00 [facility] [place] Heart Rate 2020-07-24 13:10:00 [facility] [place] Respitory Rate 2020-07-24 13:10:00 [facility] al [place] Systolic (mm Hg) 2020-07-24 13:10:00 Kojo rial [place] Diastolic (mm Hg) 2020-07-24 13:10:00 Mem orial [place] Height 2020-07-24 12:55:00 170.18 cm [facility] [place] BMI Calculated 2020-07-24 12:55:00 [facility] al [place] Weight 2020-07-24 12:55:00 [facility] [place] Heart Rate 2020-07-24 12:55:00 [facility] [place] Temperature Oral (F) 2020-07-24 12:55:00 98.2 F [facility] [place] Heart Rate 2020-07-15 19:07:00 [facility] [place] Respitory Rate 2020-07-15 19:07:00 [facility] al [place] Systolic (mm Hg) 2020-07-15 19:07:00 Kojo rial [place] Diastolic (mm Hg) 2020-07-15 19:07:00 Mem orial [place] Temperature Oral (F) 2020-07-15 17:00:00 98.1 F [facility] [place] Heart Rate 2020-07-15 17:00:00 [facility] [place] Systolic (mm Hg) 2020-07-15 17:00:00 Kojo rial [place] Diastolic (mm Hg) 2020-07-15 17:00:00 Mem [facility] [place] Respitory Rate 2020-07-15 17:00:00 [facility] al [place] Temperature Oral (F) 2020-07-15 13:00:00 98.3 F [facility] [place] Heart Rate 2020-07-15 13:00:00 [facility] [place] Systolic (mm Hg) 2020-07-15 13:00:00 [facility] Diastolic (mm Hg) 2020-07-15 13:00:00 [facility] Temperature Oral (F) 2020-07-15 09:00:00 98.1 F [facility] Respitory Rate 2020-07-15 09:00:00 [facility] Height 2020-07-06 10:14:00 170.18 cm [facility] BMI Calculated 2020-07-06 10:14:00 [facility] Weight 2020-07-06 10:14:00 [facility] Systolic (mm Hg) 2020-05-21 15:01:00 [facility] Diastolic (mm Hg) 2020-05-21 15:01:00 [facility] Heart Rate 2020-05-21 15:01:00 [facility] Respitory Rate 2020-05-21 15:01:00 [facility] Height 2020-05-21 13:15:00 170.18 cm [facility] BMI Calculated 2020-05-21 13:15:00 [facility] Weight 2020-05-21 13:15:00 [facility] Systolic (mm Hg) 2020-05-21 13:15:00 [facility] Diastolic (mm Hg) 2020-05-21 13:15:00 [facility] Heart Rate 2020-05-21 13:15:00 [facility] Respitory Rate 2020-05-21 13:15:00 [facility] Temperature Oral (F) 2020-05-21 13:15:00 98.5 F [facility] Systolic (mm Hg) 2020-03-23 14:05:00 [facility] Diastolic (mm Hg) 2020-03-23 14:05:00 [facility] Systolic (mm Hg) 2020-03-23 13:00:00 [facility] Diastolic (mm Hg) 2020-03-23 13:00:00 [facility] Temperature Oral (F) 2020-03-23 13:00:00 98.5 F [facility] Heart Rate 2020-03-23 13:00:00 [facility] Respitory Rate 2020-03-23 13:00:00 [facility] Systolic (mm Hg) 2020-03-23 11:10:00 [facility] Diastolic (mm Hg) 2020-03-23 11:10:00 [facility] Respitory Rate 2020-03-23 11:10:00 [facility] Heart Rate 2020-03-23 11:10:00 [facility] Temperature Oral (F) 2020-03-23 11:10:00 98.4 F [facility] Respitory Rate 2020-03-23 09:42:00 [facility] Heart Rate 2020-03-23 09:42:00 [facility] Temperature Oral (F) 2020-03-23 08:46:00 98.3 F [facility] Height 2020-03-23 05:39:00 170.18 cm [facility] BMI Calculated 2020-03-23 05:39:00 [facility] Weight 2020-03-23 05:39:00 [facility] Systolic (mm Hg) 2020-02-03 23:19:00 [facility] Diastolic (mm Hg) 2020-02-03 23:19:00 [facility] Respitory Rate 2020-02-03 23:19:00 [facility] Heart Rate 2020-02-03 23:19:00 [facility] Temperature Oral (F) 2020-02-03 23:19:00 98.6 F [facility] Systolic (mm Hg) 2020-02-03 22:04:00 [facility] Diastolic (mm Hg) 2020-02-03 22:04:00 [facility] Respitory Rate 2020-02-03 22:04:00 [facility] Heart Rate 2020-02-03 22:04:00 [facility] Systolic (mm Hg) 2020-02-03 20:14:00 [facility] Diastolic (mm Hg) 2020-02-03 20:14:00 [facility] Respitory Rate 2020-02-03 20:14:00 [facility] Heart Rate 2020-02-03 20:14:00 [facility] Temperature Oral (F) 2020-02-03 20:14:00 98.5 F [facility] Height 2020-02-03 19:22:00 170.18 cm [facility] BMI Calculated 2020-02-03 19:22:00 [facility] Weight 2020-02-03 19:22:00 [facility] Temperature Oral (F) 2020-02-03 19:22:00 99.0 F [facility] Temperature Oral (F) 2019-11-05 18:00:00 98.3 F [facility] Heart Rate 2019-11-05 18:00:00 [facility] Respitory Rate 2019-11-05 18:00:00 [facility] Systolic (mm Hg) 2019-11-05 18:00:00 [facility] Diastolic (mm Hg) 2019-11-05 18:00:00 [facility] Temperature Oral (F) 2019-11-05 14:00:00 98.1 F [facility] Heart Rate 2019-11-05 14:00:00 [facility] Respitory Rate 2019-11-05 14:00:00 [facility] Systolic (mm Hg) 2019-11-05 14:00:00 [facility] Diastolic (mm Hg) 2019-11-05 14:00:00 [facility] Respitory Rate 2019-11-05 12:36:00 [facility] Temperature Oral (F) 2019-11-05 10:00:00 98.0 F [facility] Heart Rate 2019-11-05 10:00:00 [facility] Systolic (mm Hg) 2019-11-05 10:00:00 [facility] Diastolic (mm Hg) 2019-11-05 10:00:00 [facility] Height 2019-10-29 07:23:00 170.18 cm [facility] Weight 2019-10-29 07:23:00 [facility] BMI Calculated 2019-10-29 07:23:00 [facility] Height 2019-10-29 01:03:00 170.18 cm [facility] BMI Calculated 2019-10-29 01:03:00 [facility] Weight 2019-10-29 01:03:00 [facility] Temperature Oral (F) 2019-08-20 14:07:00 98.8 F [facility] Heart Rate 2019-08-20 14:07:00 [facility] Respitory Rate 2019-08-20 14:07:00 [facility] Systolic (mm Hg) 2019-08-20 14:07:00 [facility] Diastolic (mm Hg) 2019-08-20 14:07:00 [facility] Systolic (mm Hg) 2019-08-20 12:15:00 [facility] Diastolic (mm Hg) 2019-08-20 12:15:00 [facility] Heart Rate 2019-08-20 12:15:00 [facility] Temperature Oral (F) 2019-08-20 09:46:00 98.3 F [facility] Heart Rate 2019-08-20 09:46:00 [facility] Respitory Rate 2019-08-20 09:46:00 [facility] Systolic (mm Hg) 2019-08-20 09:46:00 [facility] Diastolic (mm Hg) 2019-08-20 09:46:00 [facility] Temperature Oral (F) 2019-08-20 06:02:00 98.5 F [facility] Respitory Rate 2019-08-20 06:02:00 [facility] Height 2019-08-14 22:12:00 175.26 cm [facility] Weight 2019-08-14 22:12:00 [facility] BMI Calculated 2019-08-14 22:12:00 [facility] Respitory Rate 2019-04-08 17:36:00 [facility] Systolic (mm Hg) 2019-04-08 17:36:00 [facility] Diastolic (mm Hg) 2019-04-08 17:36:00 [facility] Temperature Oral (F) 2019-04-08 17:36:00 98.0 F [facility] Heart Rate 2019-04-08 17:36:00 [facility] Respitory Rate 2019-04-08 13:23:00 [facility] Heart Rate 2019-04-08 13:23:00 [facility] Temperature Oral (F) 2019-04-08 13:23:00 98.1 F [facility] Systolic (mm Hg) 2019-04-08 13:23:00 [facility] Diastolic (mm Hg) 2019-04-08 13:23:00 [facility] Systolic (mm Hg) 2019-04-08 08:40:00 [facility] Diastolic (mm Hg) 2019-04-08 08:40:00 [facility] Respitory Rate 2019-04-08 08:40:00 [facility] Heart Rate 2019-04-08 08:40:00 [facility] Temperature Oral (F) 2019-04-08 08:40:00 98.0 F [facility] Weight 2019-04-06 04:23:00 [facility] BMI Calculated 2019-04-06 04:17:00 [facility] Height 2019-04-06 04:17:00 167.64 cm [facility] Weight 2019-04-06 04:17:00 [facility] Respitory Rate 2018-07-24 20:59:00 [facility] Systolic (mm Hg) 2018-07-24 20:59:00 [facility] Diastolic (mm Hg) 2018-07-24 20:59:00 [facility] Heart Rate 2018-07-24 20:59:00 [facility] Temperature Oral (F) 2018-07-24 20:59:00 98.2 F [facility] Temperature Oral (F) 2018-07-24 16:59:00 98.3 F [facility] Heart Rate 2018-07-24 16:59:00 [facility] Respitory Rate 2018-07-24 16:59:00 [facility] Systolic (mm Hg) 2018-07-24 16:59:00 [facility] Diastolic (mm Hg) 2018-07-24 16:59:00 [facility] Systolic (mm Hg) 2018-07-24 16:33:00 [facility] Diastolic (mm Hg) 2018-07-24 16:33:00 [facility] Temperature Oral (F) 2018-07-24 16:33:00 98.2 F [facility] Respitory Rate 2018-07-24 16:33:00 [facility] Heart Rate 2018-07-24 16:33:00 [facility] Weight 2018-07-22 11:03:00 [facility] BMI Calculated 2018-07-22 11:03:00 [facility] Height 2018-07-22 11:03:00 170.18 cm [facility] BMI Calculated 2018-07-22 01:54:00 [facility] Height 2018-07-22 01:54:00 170.18 cm [facility] Weight 2018-07-22 01:54:00 [facility] Respitory Rate 2018-07-21 02:35:00 [facility] Temperature Oral (F) 2018-07-21 02:35:00 98.6 F [facility] Systolic (mm Hg) 2018-07-21 02:35:00 [facility] Diastolic (mm Hg) 2018-07-21 02:35:00 [facility] Respitory Rate 2018-07-20 23:36:00 [facility] Systolic (mm Hg) 2018-07-20 23:36:00 [facility] Diastolic (mm Hg) 2018-07-20 23:36:00 [facility] Systolic (mm Hg) 2018-07-20 22:37:00 [facility] Diastolic (mm Hg) 2018-07-20 22:37:00 [facility] Respitory Rate 2018-07-20 22:37:00 [facility] Heart Rate 2018-07-20 22:37:00 [facility] Temperature Oral (F) 2018-07-20 22:37:00 97.7 F [facility] Height 2018-07-20 22:37:00 170.18 cm [facility] BMI Calculated 2018-07-20 22:37:00 [facility] Weight 2018-07-20 22:37:00 [facility] BMI Calculated 2018-05-23 15:20:00 [facility] Weight 2018-05-23 15:20:00 [facility] Respitory Rate 2018-05-23 15:20:00 [facility] Heart Rate 2018-05-23 15:20:00 [facility] Height 2018-05-23 15:20:00 170 cm [facility] Systolic (mm Hg) 2018-05-23 15:20:00 [facility] Diastolic (mm Hg) 2018-05-23 15:20:00 [facility] Systolic (mm Hg) 2018-04-15 21:25:00 [facility] Diastolic (mm Hg) 2018-04-15 21:25:00 [facility] Respitory Rate 2018-04-15 16:40:00 [facility] Heart Rate 2018-04-15 16:40:00 [facility] Systolic (mm Hg) 2018-04-15 16:40:00 [facility] Diastolic (mm Hg) 2018-04-15 16:40:00 [facility] Temperature Oral (F) 2018-04-15 16:40:00 98.2 F [facility] Heart Rate 2018-04-15 13:15:00 [facility] Temperature Oral (F) 2018-04-15 13:15:00 98.0 F [facility] Systolic (mm Hg) 2018-04-15 13:15:00 [facility] Diastolic (mm Hg) 2018-04-15 13:15:00 [facility] Respitory Rate 2018-04-15 13:15:00 [facility] Temperature Oral (F) 2018-04-15 09:31:00 98.2 F [facility] Heart Rate 2018-04-15 09:31:00 [facility] Respitory Rate 2018-04-15 09:31:00 [facility] Weight 2018-04-15 07:53:00 [facility] Weight 2018-04-14 23:25:00 [facility] Height 2018-04-14 23:25:00 172.72 cm [facility] BMI Calculated 2018-04-14 23:25:00 [facility] Systolic (mm Hg) 2018-03-20 16:07:00 [facility] Diastolic (mm Hg) 2018-03-20 16:07:00 [facility] Respitory Rate 2018-03-20 16:07:00 [facility] Heart Rate 2018-03-20 16:07:00 [facility] Temperature Oral (F) 2018-03-20 16:07:00 98.4 F [facility] Systolic (mm Hg) 2018-03-20 12:44:00 [facility] Diastolic (mm Hg) 2018-03-20 12:44:00 [facility] Respitory Rate 2018-03-20 12:44:00 [facility] Heart Rate 2018-03-20 12:44:00 [facility] Temperature Oral (F) 2018-03-20 12:44:00 98.3 F [facility] Respitory Rate 2018-03-20 08:46:00 [facility] Temperature Oral (F) 2018-03-20 08:46:00 98.3 F [facility] Heart Rate 2018-03-20 08:46:00 [facility] Systolic (mm Hg) 2018-03-20 08:46:00 [facility] Diastolic (mm Hg) 2018-03-20 08:46:00 [facility] BMI Calculated 2018-03-17 12:01:00 [facility] Weight 2018-03-17 12:01:00 [facility] Height 2018-03-17 12:01:00 167.64 cm [facility] Weight 2018-03-17 07:27:00 [facility] Temperature Oral (F) 2018-01-23 03:30:00 98.2 F [facility] Respitory Rate 2018-01-23 03:30:00 [facility] Systolic (mm Hg) 2018-01-23 03:30:00 [facility] Diastolic (mm Hg) 2018-01-23 03:30:00 [facility] Respitory Rate 2018-01-23 01:48:00 [facility] Heart Rate 2018-01-23 01:48:00 [facility] Systolic (mm Hg) 2018-01-23 01:48:00 [facility] Diastolic (mm Hg) 2018-01-23 01:48:00 [facility] Temperature Oral (F) 2018-01-23 00:14:00 98.2 F [facility] Respitory Rate 2018-01-23 00:14:00 [facility] Systolic (mm Hg) 2018-01-23 00:14:00 [facility] Diastolic (mm Hg) 2018-01-23 00:14:00 [facility] Heart Rate 2018-01-23 00:14:00 [facility] BMI Calculated 2018-01-23 00:14:00 [facility] Height 2018-01-23 00:14:00 165.1 cm [facility] Weight 2018-01-23 00:14:00 [facility] Systolic (mm Hg) 2017-12-20 12:31:00 [facility] Diastolic (mm Hg) 2017-12-20 12:31:00 [facility] Temperature Oral (F) 2017-12-20 12:31:00 98.0 F [facility] Respitory Rate 2017-12-20 12:31:00 [facility] Heart Rate 2017-12-20 12:31:00 [facility] Systolic (mm Hg) 2017-12-20 05:00:00 [facility] Diastolic (mm Hg) 2017-12-20 05:00:00 [facility] Temperature Oral (F) 2017-12-20 05:00:00 98 F [facility] Heart Rate 2017-12-20 05:00:00 [facility] Respitory Rate 2017-12-20 05:00:00 [facility] Temperature Oral (F) 2017-12-20 01:00:00 97.6 F [facility] Heart Rate 2017-12-20 01:00:00 [facility] Systolic (mm Hg) 2017-12-20 01:00:00 [facility] Diastolic (mm Hg) 2017-12-20 01:00:00 [facility] Respitory Rate 2017-12-20 01:00:00 [facility] BMI Calculated 2017-12-15 16:46:00 [facility] Weight 2017-12-15 16:46:00 [facility] Height 2017-12-15 16:46:00 170.18 cm [facility] Height 2017-12-15 16:11:00 170.18 cm [facility] Weight 2017-12-15 11:31:00 [facility] Procedures Procedure Date / Time Performed Performing Clinician [facility] e Dialysis access site care [facility] Knee maneuver [facility] Shoulder manipulation [facility] H ermann Encounters Start End Encounter Admission Attending Care Care Encounter Source Date/Time Date/Time Type Type Clinicians Facility Department ID 2019-04-05 Inpatient E [facility] MED [id number] [facility] L 20:14:00 2019-04-05 Inpatient YESENIA SHRESTHA [facility] 8227 [facility] 18:31:48 2021-09-10 2021-09-10 Refill Andrew, [facility] [id number] 00:00:00 00:00:00 [facility] [id number] it of CARE [id number] Tai KEYS [id number] Fl dical [address] 2021-04-22 2021-04-22 Office [facility] [id number] 10:30:14 11:33:56 Visit [facility] [id number] CLINICS [id number] 2020-08-06 2020-08-13 [facility] [id number] [facility] 18:41:30 00:50:00 [facility] 12 [facility] 2020-08-06 2020-08-12 Inpatient E BOAZ BL MED [id number] [facility]BL 20:29:00 18:50:00 SHANNA 2020-07-24 2020-07-24 Emergency [facility] [id number] [facility] 12:53:57 16:22:00 [facility] 11 [facility] 2020-07-24 2020-07-24 Emergency E VISKEYYALOUISA BL [facility]BL [id number] [facility]BL 07:53:00 11:22:00 TINA 2020-07-06 2020-07-15 [facility] [id number] [facility] 10:06:46 22:00:00 [facility] 10 [facility] 2020-07-06 2020-07-06 Inpatient E REBEL BL MED [id number] [facility]BL 08:50:00 05:06:00 MELIZA 2020-05-21 2020-05-21 [facility] [id number] [facility] 13:09:59 15:59:00 dean Sellers 09 [facility] 2020-05-21 2020-05-21 Emergency E VIRGINIE MAXI BL [id number] MHBL 08:09:00 10:59:00 TREVOR 2020-03-23 2020-03-23 [facility] [id number] [facility] 05:18:16 15:31:00 dean Sellers 08 [facility] 2020-03-23 2020-03-23 Emergency E TERESA BL MHBL [id number] MHBL 00:18:00 10:31:00 MEGHA 2020-02-03 2020-02-03 [facility] [id number] [facility] 19:07:14 23:44:00 [facility] 07 [facility] 2020-02-03 2020-02-03 Emergency E GALO, MHBL MHBL [id number] MHBL 14:07:00 18:44:00 MARCI 2019-10-29 2019-11-06 [facility] [id number] [facility] 00:57:20 02:15:00 [facility] 06 [facility] 2019-10-30 2019-10-28 Inpatient E MHBL MED [id number] MHBL 14:55:00 23:23:00 2019-08-16 2019-08-20 [facility] [id number] [facility] 00:36:00 19:40:00 dean Sellers 10 [facility] 2019-08-15 2019-08-14 Inpatient U MHBL MED [id number] MHBL 18:36:00 15:56:00 2019-04-06 2019-04-08 [facility] [id number] [facility] 01:14:00 21:53:00 dean Sellers 79 [facility] 2018-07-22 2018-07-24 Inpatient [facility] [id number] [facility] 01:45:00 23:05:00 dean Sellers 05 [facility] 2018-07-20 2018-07-21 Emergency [facility] [id number] [facility] 22:20:00 02:38:00 dean Sellers 04 [facility] 2018-05-23 2018-06-22 OP nullFlavo Transplant [id number] [facility] 14:47:00 04:59:00 Transplant r Center 00 l [facility] 2018-04-14 2018-04-15 Observatio [facility] [id number] [facility] 23:17:00 21:55:00 n dean Sellers 03 [facility] 2018-03-17 2018-03-20 Inpatient [facility] [id number] [facility] 07:25:00 22:12:00 dean Sellers 02 [facility] 2018-01-22 2018-01-23 Emergency [facility] [id number] [facility] 23:36:00 03:58:00 [facility] [place] [facility] 2017-12-15 2017-12-20 Inpatient [facility] [id number] [facility] 11:29:00 18:55:00 [facility] [place] 00 [facility] Results Test Description Test Time Test Comments Results Result Comments Source CHEM PANEL 2020-08-12 09:42:00 Test Item Value Reference Range Interpretation Comme nts Glucose Lvl (test code = Glucose Lvl) 79 70-99 [facility]2020-11-04 09:42:00 Test Item Value Reference Range Interpretation Comments BUN (test code = BUN) 21 7-22 [facility]2020-11-04 09:42:00 Test Item Value Reference Range Interpretation Comments Creatinine Lvl (test code = Creatinine 7.93 0.50-1.40 Lvl) [facility]2020-11-04 09:42:00 Test Item Value Reference Range Interpretation Comments Sodium Lvl (test code = Sodium Lvl) 139 135-145 [facility]2020-11-04 09:42:00 Test Item Value Reference Range Interpretation Comments Potassium Lvl (test code = Potassium 3.2 3.5-5.1 Lvl) [facility]2020-11-04 09:42:00 Test Item Value Reference Range Interpretation Comments Chloride Lvl (test code = Chloride Lvl) 104 95-109 [facility]2020-11-04 09:42:00 Test Item Value Reference Range Interpretation Comments CO2 (test code = CO2) 27 24-32 [facility]2020-11-04 09:42:00 Test Item Value Reference Range Interpretation Comments Calcium Lvl (test code = Calcium Lvl) 8.8 8.5-10.5 [facility]2020-11-04 09:42:00 Test Item Value Reference Range Interpretation Comments AGAP (test code = AGAP) 11.2 10.0-20.0 [facility]2020-11-04 09:42:00 Test Item Value Reference Range Interpretation Comments eGFR (test code = eGFR) 7 [facility]59-38 09:42:00 Test Item Value Reference Range Interpretation Comments Neutrophils # (test code = Neutrophils 4.7 1.5-8.1 #) [facility]rsuouuHCEDJIBAMC3437-93-86 09:42:00 Test Item Value Reference Range Interpretation Comments Lymphocytes # (test code = Lymphocytes 1.2 1.0-5.5 #) [facility] HospitalNukdfdsHQWHATONDX5056-60-88 09:42:00 Test Item Value Reference Range Interpretation Comments Monocytes # (test code 0.2 See_Comment [Aut omated message] The = Monocytes #) system which generated this result tra nsmitted reference range : <=0.8. The reference r yared was not used to int erpret this result as normal/abnormal . [facility] HospitalAenvaduFWMNIZIBXH6577-82-56 09:42:00 Test Item Value Reference Range Interpretation Comments Eosinophils # (test code 0.2 See_Comment [A utomated message] The = Eosinophils #) system whic h generated this result tra nsmitted reference range : <=0.5. The reference r yared was not used to int erpret this result as normal/abnormal . [facility] HospitalVqzkwgzIEIFGDEGMT8384-60-64 09:42:00 Test Item Value Reference Range Interpretation Comments Segs (test code = Segs) 71.0 45.0-75.0 [facility] HospitalXmhfiszIGZJLDDMJX7379-59-91 09:42:00 Test Item Value Reference Range Interpretation Comments Bands (test code = 2.0 See_Comment [Automat ed message] The Bands) system which ge nerated this result transmit emerson reference range : <=11.0. The reference r yared was not used to interpr et this result as erinn l/abnormal. [facility] HospitalIcsgftpPBSVBHPKZD5922-84-97 09:42:00 Test Item Value Reference Range Interpretation Comments Lymphocytes (test code = Lymphocytes) 18.0 20.0-40.0 [place] 861290-11-04 09:42:00 Test Item Value Reference Range Interpretation Comments Monocytes (test code = Monocytes) 3.0 2.0-12.0 [place] [address]-11-04 09:42:00 Test Item Value Reference Range Interpretation Comments Eosinophils (test code = 3.0 See_Comment [A utomated message] The Eosinophils) system which ge nerated this result tra nsmitted reference range : <=4.0. The reference r yared was not used to int erpret this result as normal/abnormal . [facility] HospitalVdtprorLNMYYIJPPN7007-85-88 09:42:00 Test Item Value Reference Range Interpretation Comments Metamyelocytes (test code 2.0 See_Comment [ Automated message] = Metamyelocytes) The system which generated this result transmitted ref erence range: <=1.0. T he reference range was not used to int erpret this result as normal/abnormal . [facility] HospitalQyqwjyuQGHXDXWGEY1764-26-48 09:42:00 Test Item Value Reference Range Interpretation Comments Myelocytes (test code = Myelocytes) 1.0 [facility] HospitalYcutquvHUIRZDEVOC5605-41-76 09:42:00 Test Item Value Reference Range Interpretation Comments Atypical Lymphs (test code = Atypical 0.0 Lymphs) [facility] HospitalVmcvinrZYDWNHQWKQ6551-00-64 09:42:00 Test Item Value Reference Range Interpretation Comments NRBC (test code = NRBC) 1 [facility] HospitalIefjoepWHZZWVIZMP3862-42-99 09:42:00 Test Item Value Reference Range Interpretation Comments RBC Morph (test code = Normal (08/12/20 3:42 RBC Morph) AM) [facility] HospitalUrntgiaNOGPQTEOQT9901-11-84 09:42:00 Test Item Value Reference Range Interpretation Comments Plt Morph (test code = Normal (08/12/20 3:42 Plt Morph) AM) [facility] HospitalCthwfnzXPALZTUQUV8909-63-69 09:42:00 Test Item Value Reference Range Interpretation Comments Tot Cell Ct (test code = Tot Cell Ct) 100 1 [facility] HospitalTmsglfhMYVVVXNWQE3352-19-32 09:42:00 Test Item Value Reference Range Interpretation Comments Polychrom (test code = Moderate *ABN*(08/12/20 Polychrom) 3:42 AM) [facility] HospitalKfrntxsEZIUHCEWVZ2735-60-91 09:42:00 Test Item Value Reference Range Interpretation Comments WBC (test code = WBC) 6.4 3.7-10.4 [facility] HospitalTuqwcgfYTYYTIHOYU4226-32-97 09:42:00 Test Item Value Reference Range Interpretation Comments RBC (test code = RBC) 3.02 4.70-6.10 [facility] HospitalHllktncPYSIKKSMUI9752-60-14 09:42:00 Test Item Value Reference Range Interpretation Comments Hgb (test code = Hgb) 9.0 14.0-18.0 [facility] HospitalLemnqbnNDKYKUZBFI1857-57-37 09:42:00 Test Item Value Reference Range Interpretation Comments Hct (test code = Hct) 25.9 42.0-54.0 [place] [address]-11-04 09:42:00 Test Item Value Reference Range Interpretation Comments MCV (test code = MCV) 85.7 80.0-94.0 [place] [address]-11-04 09:42:00 Test Item Value Reference Range Interpretation Comments MCH (test code = MCH) 30.0 pg 27.0-31.0 [place] [address]-11-04 09:42:00 Test Item Value Reference Range Interpretation Comments MCHC (test code = MCHC) 34.9 32.0-36.0 [place] [address]-11-04 09:42:00 Test Item Value Reference Range Interpretation Comments RDW (test code = RDW) 14.8 11.5-14.5 [place] [address]-11-04 09:42:00 Test Item Value Reference Range Interpretation Comments Platelet (test code = Platelet) 169 133-450 [place] [address]-11-04 09:42:00 Test Item Value Reference Range Interpretation Comments MPV (test code = MPV) 7.0 7.4-10.4 [facility]2020-11-03 09:35:00 Test Item Value Reference Range Interpretation Comments Glucose Lvl (test code = Glucose Lvl) 80 70-99 [facility]2020-11-03 09:35:00 Test Item Value Reference Range Interpretation Comments BUN (test code = BUN) 13 7-22 [place] 592960-11-03 09:35:00 Test Item Value Reference Range Interpretation Comments Creatinine Lvl (test code = Creatinine 5.51 0.50-1.40 Lvl) [place] 592960-11-03 09:35:00 Test Item Value Reference Range Interpretation Comments Sodium Lvl (test code = Sodium Lvl) 140 135-145 [facility]2020-11-03 09:35:00 Test Item Value Reference Range Interpretation Comments Potassium Lvl (test code = Potassium 3.2 3.5-5.1 Lvl) [place] 592960-11-03 09:35:00 Test Item Value Reference Range Interpretation Comments Chloride Lvl (test code = Chloride Lvl) 105 95-109 [place] [address]-11-03 09:35:00 Test Item Value Reference Range Interpretation Comments CO2 (test code = CO2) 28 24-32 [place] [address]-11-03 09:35:00 Test Item Value Reference Range Interpretation Comments Calcium Lvl (test code = Calcium Lvl) 8.4 8.5-10.5 [place] 592960-11-03 09:35:00 Test Item Value Reference Range Interpretation Comments AGAP (test code = AGAP) 10.2 10.0-20.0 [place] [address]-11-03 09:35:00 Test Item Value Reference Range Interpretation Comments eGFR (test code = eGFR) 10 [place] 861290-11-03 09:35:00 Test Item Value Reference Range Interpretation Comments Segs (test code = Segs) 68.4 45.0-75.0 [place] [address]-11-03 09:35:00 Test Item Value Reference Range Interpretation Comments Lymphocytes (test code = Lymphocytes) 17.8 20.0-40.0 [place] [address]-11-03 09:35:00 Test Item Value Reference Range Interpretation Comments Monocytes (test code = Monocytes) 9.3 2.0-12.0 [place] [address]-11-03 09:35:00 Test Item Value Reference Range Interpretation Comments Eosinophils (test code = 3.7 See_Comment [A utomated message] The Eosinophils) system which ge nerated this result tra nsmitted reference range : <=4.0. The reference r yared was not used to int erpret this result as normal/abnormal . [place] [address]-11-03 09:35:00 Test Item Value Reference Range Interpretation Comments Basophils (test code = 0.8 See_Comment [Aut omated message] The Basophils) system which ge nerated this result tra nsmitted reference range : <=1.0. The reference r yared was not used to int erpret this result as normal/abnormal . [place] [address]-11-03 09:35:00 Test Item Value Reference Range Interpretation Comments Neutrophils # (test code = Neutrophils 4.1 1.5-8.1 #) [place] [address]-11-03 09:35:00 Test Item Value Reference Range Interpretation Comments Lymphocytes # (test code = Lymphocytes 1.1 1.0-5.5 #) [facility]htcouSPXFEABWSA0627-44-44 09:35:00 Test Item Value Reference Range Interpretation Comments Monocytes # (test code 0.6 See_Comment [Aut omated message] The = Monocytes #) system which generated this result tra nsmitted reference range : <=0.8. The reference r yared was not used to int erpret this result as normal/abnormal . [facility] HospitalYnsuehtXMPQSUBRQN9973-12-31 09:35:00 Test Item Value Reference Range Interpretation Comments Eosinophils # (test code 0.2 See_Comment [A utomated message] The = Eosinophils #) system whic h generated this result tra nsmitted reference range : <=0.5. The reference r yared was not used to int erpret this result as normal/abnormal . [facility] HospitalKocdvqhRHHZOFSFLU5510-76-79 09:35:00 Test Item Value Reference Range Interpretation Comments WBC (test code = WBC) 6.0 3.7-10.4 [place] [address]-11-03 09:35:00 Test Item Value Reference Range Interpretation Comments RBC (test code = RBC) 2.84 4.70-6.10 [place] [address]-11-03 09:35:00 Test Item Value Reference Range Interpretation Comments Hgb (test code = Hgb) 8.1 14.0-18.0 [place] [address]-11-03 09:35:00 Test Item Value Reference Range Interpretation Comments Hct (test code = Hct) 24.2 42.0-54.0 [place] [address]-11-03 09:35:00 Test Item Value Reference Range Interpretation Comments MCV (test code = MCV) 85.3 80.0-94.0 [place] [address]-11-03 09:35:00 Test Item Value Reference Range Interpretation Comments MCH (test code = MCH) 28.7 pg 27.0-31.0 [place] [address]-11-03 09:35:00 Test Item Value Reference Range Interpretation Comments MCHC (test code = MCHC) 33.6 32.0-36.0 [place] [address]-11-03 09:35:00 Test Item Value Reference Range Interpretation Comments RDW (test code = RDW) 14.5 11.5-14.5 [place] [address]-11-03 09:35:00 Test Item Value Reference Range Interpretation Comments Platelet (test code = Platelet) 171 133-450 [place] 861290-11-03 09:35:00 Test Item Value Reference Range Interpretation Comments MPV (test code = MPV) 7.4 7.4-10.4 [place] 592960-11-02 09:39:00 Test Item Value Reference Range Interpretation Comments Glucose Lvl (test code = Glucose Lvl) 110 70-99 [place] 592960-11-02 09:39:00 Test Item Value Reference Range Interpretation Comments BUN (test code = BUN) 21 7-22 [place] 592960-11-02 09:39:00 Test Item Value Reference Range Interpretation Comments Creatinine Lvl (test code = Creatinine 6.77 0.50-1.40 Lvl) [place] 592960-11-02 09:39:00 Test Item Value Reference Range Interpretation Comments Sodium Lvl (test code = Sodium Lvl) 139 135-145 [place] 592960-11-02 09:39:00 Test Item Value Reference Range Interpretation Comments Potassium Lvl (test code = Potassium 3.5 3.5-5.1 Lvl) [place] 592960-11-02 09:39:00 Test Item Value Reference Range Interpretation Comments Chloride Lvl (test code = Chloride Lvl) 104 95-109 [place] 592960-11-02 09:39:00 Test Item Value Reference Range Interpretation Comments CO2 (test code = CO2) 29 24-32 [place] 592960-11-02 09:39:00 Test Item Value Reference Range Interpretation Comments AGAP (test code = AGAP) 9.5 10.0-20.0 [place] 592960-11-02 09:39:00 Test Item Value Reference Range Interpretation Comments Calcium Lvl (test code = Calcium Lvl) 7.9 8.5-10.5 [place] 592960-11-02 09:39:00 Test Item Value Reference Range Interpretation Comments eGFR (test code = eGFR) 8 [place] 861290-11-02 09:39:00 Test Item Value Reference Range Interpretation Comments Neutrophils # (test code = Neutrophils 3.8 1.5-8.1 #) [place] [address]-11-02 09:39:00 Test Item Value Reference Range Interpretation Comments Lymphocytes # (test code = Lymphocytes 1.1 1.0-5.5 #) [place] 861290-11-02 09:39:00 Test Item Value Reference Range Interpretation Comments Monocytes # (test code 0.2 See_Comment [Aut omated message] The = Monocytes #) system which generated this result tra nsmitted reference range : <=0.8. The reference r yared was not used to int erpret this result as normal/abnormal . [place] [address]-11-02 09:39:00 Test Item Value Reference Range Interpretation Comments Eosinophils # (test code 0.4 See_Comment [A utomated message] The = Eosinophils #) system whic h generated this result tra nsmitted reference range : <=0.5. The reference r yared was not used to int erpret this result as normal/abnormal . [place] 861290-11-02 09:39:00 Test Item Value Reference Range Interpretation Comments Segs (test code = Segs) 64.0 45.0-75.0 [place] [address]-11-02 09:39:00 Test Item Value Reference Range Interpretation Comments Bands (test code = 2.0 See_Comment [Automat ed message] The Bands) system which ge nerated this result transmit emerson reference range : <=11.0. The reference r yared was not used to interpr et this result as erinn l/abnormal. [facility] HospitalCyeraiwEXMPKAHPOL1509-15-46 09:39:00 Test Item Value Reference Range Interpretation Comments Lymphocytes (test code = Lymphocytes) 20.0 20.0-40.0 [place] [address]-11-02 09:39:00 Test Item Value Reference Range Interpretation Comments Monocytes (test code = Monocytes) 4.0 2.0-12.0 [place] [address]-11-02 09:39:00 Test Item Value Reference Range Interpretation Comments Eosinophils (test code = 7.0 See_Comment [A utomated message] The Eosinophils) system which ge nerated this result tra nsmitted reference range : <=4.0. The reference r yared was not used to int erpret this result as normal/abnormal . [facility] HospitalTdqfcnyKHBVEGFCVK1855-61-55 09:39:00 Test Item Value Reference Range Interpretation Comments Myelocytes (test code = Myelocytes) 3.0 [facility] HospitalDoixkzzLTRTWEFYHE2364-80-03 09:39:00 Test Item Value Reference Range Interpretation Comments Atypical Lymphs (test code = Atypical 0.0 Lymphs) [facility] HospitalLsuexloNQODCUERCM6872-46-57 09:39:00 Test Item Value Reference Range Interpretation Comments NRBC (test code = NRBC) 1 [facility] HospitalUwfrqgcTRZFBKAKMV4144-78-02 09:39:00 Test Item Value Reference Range Interpretation Comments RBC Morph (test code = Normal (08/10/20 3:39 RBC Morph) AM) [facility] HospitalLxnhxskVWFUNOKXUW3379-72-86 09:39:00 Test Item Value Reference Range Interpretation Comments Plt Morph (test code = Normal (08/10/20 3:39 Plt Morph) AM) [facility] HospitalGesgpbpABYEBNJBVA8829-70-42 09:39:00 Test Item Value Reference Range Interpretation Comments WBC (test code = WBC) 5.7 3.7-10.4 [facility] HospitalBdpdkbbFUHYVIHPMZ6408-49-20 09:39:00 Test Item Value Reference Range Interpretation Comments RBC (test code = RBC) 2.61 4.70-6.10 [facility] HospitalNovnzbbGYQHJYDAGB6097-49-69 09:39:00 Test Item Value Reference Range Interpretation Comments Hgb (test code = Hgb) 7.5 14.0-18.0 [facility] HospitalKiuplhxBBGPLZKTOX0226-49-31 09:39:00 Test Item Value Reference Range Interpretation Comments Hct (test code = Hct) 22.3 42.0-54.0 [facility] HospitalMqaartmPVQHCEAQQF1506-30-28 09:39:00 Test Item Value Reference Range Interpretation Comments MCV (test code = MCV) 85.6 80.0-94.0 [place] 861290-11-02 09:39:00 Test Item Value Reference Range Interpretation Comments MCH (test code = MCH) 28.8 pg 27.0-31.0 [place] 861290-11-02 09:39:00 Test Item Value Reference Range Interpretation Comments MCHC (test code = MCHC) 33.6 32.0-36.0 [facility] HospitalVdtbdzwIDXGFSBCOS0583-42-18 09:39:00 Test Item Value Reference Range Interpretation Comments RDW (test code = RDW) 13.9 11.5-14.5 [facility] HospitalBtshyomVPHFMIHFAT3182-52-97 09:39:00 Test Item Value Reference Range Interpretation Comments Platelet (test code = Platelet) 164 133-450 [facility] HospitalVetxflrERKEDXTSPM4576-06-12 09:39:00 Test Item Value Reference Range Interpretation Comments MPV (test code = MPV) 7.5 7.4-10.4 [facility] HospitalFpivuhcIPLWJRBLHJ5557-80-15 16:40:00 Test Item Value Reference Range Interpretation Comments WBC (test code = WBC) 5.7 3.7-10.4 [facility] HospitalEwgjaqiPGDXWHGHKG0769-84-97 16:40:00 Test Item Value Reference Range Interpretation Comments RBC (test code = RBC) 2.82 4.70-6.10 [place] 861290-11-01 16:40:00 Test Item Value Reference Range Interpretation Comments Hgb (test code = Hgb) 8.0 14.0-18.0 [place] 861290-11-01 16:40:00 Test Item Value Reference Range Interpretation Comments Hct (test code = Hct) 24.2 42.0-54.0 [place] 861290-11-01 16:40:00 Test Item Value Reference Range Interpretation Comments MCV (test code = MCV) 85.8 80.0-94.0 [place] 861290-11-01 16:40:00 Test Item Value Reference Range Interpretation Comments MCH (test code = MCH) 28.6 pg 27.0-31.0 [facility] HospitalPzlbthgVRRPXLGWPV3984-07-84 16:40:00 Test Item Value Reference Range Interpretation Comments MCHC (test code = MCHC) 33.3 32.0-36.0 [place] 861290-11-01 16:40:00 Test Item Value Reference Range Interpretation Comments RDW (test code = RDW) 14.1 11.5-14.5 [place] 861290-11-01 16:40:00 Test Item Value Reference Range Interpretation Comments Platelet (test code = Platelet) 169 133-450 [facility] HospitalWxsbwktQXLNWAOGPN5682-78-81 16:40:00 Test Item Value Reference Range Interpretation Comments MPV (test code = MPV) 7.2 7.4-10.4 [place] 861290-11-01 16:40:00 Test Item Value Reference Range Interpretation Comments Segs (test code = Segs) 72.6 45.0-75.0 [place] 861290-11-01 16:40:00 Test Item Value Reference Range Interpretation Comments Lymphocytes (test code = Lymphocytes) 14.6 20.0-40.0 [place] 861290-11-01 16:40:00 Test Item Value Reference Range Interpretation Comments Monocytes (test code = Monocytes) 7.8 2.0-12.0 [place] 861290-11-01 16:40:00 Test Item Value Reference Range Interpretation Comments Eosinophils (test code = 4.4 See_Comment [A utomated message] The Eosinophils) system which ge nerated this result tra nsmitted reference range : <=4.0. The reference r yared was not used to int erpret this result as normal/abnormal . [place] 861290-11-01 16:40:00 Test Item Value Reference Range Interpretation Comments Basophils (test code = 0.6 See_Comment [Aut omated message] The Basophils) system which ge nerated this result tra nsmitted reference range : <=1.0. The reference r yared was not used to int erpret this result as normal/abnormal . [place] 861290-11-01 16:40:00 Test Item Value Reference Range Interpretation Comments Neutrophils # (test code = Neutrophils 4.2 1.5-8.1 #) [place] 861290-11-01 16:40:00 Test Item Value Reference Range Interpretation Comments Lymphocytes # (test code = Lymphocytes 0.8 1.0-5.5 #) [place] [address]-11-01 16:40:00 Test Item Value Reference Range Interpretation Comments Monocytes # (test code 0.4 See_Comment [Aut omated message] The = Monocytes #) system which generated this result tra nsmitted reference range : <=0.8. The reference r yared was not used to int erpret this result as normal/abnormal . [place] 861290-11-01 16:40:00 Test Item Value Reference Range Interpretation Comments Eosinophils # (test code 0.2 See_Comment [A utomated message] The = Eosinophils #) system whic h generated this result tra nsmitted reference range : <=0.5. The reference r yared was not used to int erpret this result as normal/abnormal . [facility] CampusEhgawukFFAEJMEESM0807-58-66 16:40:00 Test Item Value Reference Range Interpretation Comments Hep B Core Ab (test code = Hep B NON-REACTIVE Core Ab) [facility] CampusUxeoxibYPUGZPBOZC4581-37-74 16:40:00 Test Item Value Reference Range Interpretation Comments Hep Bs Ag (test code = Hep Bs NON-REACTIVE Ag) [place] 689110-11-01 16:40:00 Test Item Value Reference Range Interpretation Comments Hep Bs Ab (test code = Hep Bs Ab) 7 [facility]2020-11-01 14:48:00 Test Item Value Reference Range Interpretation Comments Glucose Lvl (test code = Glucose Lvl) 70 70-99 [facility]2020-11-01 14:48:00 Test Item Value Reference Range Interpretation Comments BUN (test code = BUN) 25 7-22 [place] 592960-11-01 14:48:00 Test Item Value Reference Range Interpretation Comments Creatinine Lvl (test code = Creatinine 8.85 0.50-1.40 Lvl) [facility]2020-11-01 14:48:00 Test Item Value Reference Range Interpretation Comments Sodium Lvl (test code = Sodium Lvl) 139 135-145 [facility]2020-11-01 14:48:00 Test Item Value Reference Range Interpretation Comments Potassium Lvl (test code = Potassium 4.0 3.5-5.1 Lvl) [place] 592960-11-01 14:48:00 Test Item Value Reference Range Interpretation Comments Chloride Lvl (test code = Chloride Lvl) 100 95-109 [place] 592960-11-01 14:48:00 Test Item Value Reference Range Interpretation Comments CO2 (test code = CO2) 30 24-32 [place] 592960-11-01 14:48:00 Test Item Value Reference Range Interpretation Comments Calcium Lvl (test code = Calcium Lvl) 7.5 8.5-10.5 [place] 592960-11-01 14:48:00 Test Item Value Reference Range Interpretation Comments Total Protein (test code = Total 4.2 6.4-8.4 Protein) [place] 592960-11-01 14:48:00 Test Item Value Reference Range Interpretation Comments Albumin Lvl (test code = Albumin Lvl) 1.3 3.5-5.0 [place] 592960-11-01 14:48:00 Test Item Value Reference Range Interpretation Comments ALT (test code = ALT) 14 See_Comment [Auto mated message] The system which ge nerated this result transmit emerson reference range : <=65. The reference range was not used to interpr et this result as erinn l/abnormal. [place] 592960-11-01 14:48:00 Test Item Value Reference Range Interpretation Comments AST (test code = AST) 17 See_Comment [Auto mated message] The system which ge nerated this result transmit emerson reference range : <=37. The reference range was not used to interpr et this result as erinn l/abnormal. [place] 592960-11-01 14:48:00 Test Item Value Reference Range Interpretation Comments Alk Phos (test code = Alk Phos) 92 39-136 [place] [address]-11-01 14:48:00 Test Item Value Reference Range Interpretation Comments Bili Total (test code = Bili Total) 0.5 0.2-1.3 [place] [address]-11-01 14:48:00 Test Item Value Reference Range Interpretation Comments AGAP (test code = AGAP) 13.0 10.0-20.0 [facility] AJKTJ2502-33-15 14:48:00 Test Item Value Reference Range Interpretation Comments B/C Ratio (test code = B/C Ratio) 3 1 6-25 [facility] GAPKI2039-29-13 14:48:00 Test Item Value Reference Range Interpretation Comments Globulin (test code = Globulin) 2.9 2.7-4.2 [facility] GHYKI9266-83-77 14:48:00 Test Item Value Reference Range Interpretation Comments A/G Ratio (test code = A/G Ratio) 0.4 1 0.7-1.6 [place] [address]-11-01 14:48:00 Test Item Value Reference Range Interpretation Comments eGFR (test code = eGFR) 6 [facility] EOWZD8805-09-45 14:48:00 Test Item Value Reference Range Interpretation Comments Magnesium Lvl (test code = Magnesium 1.8 1.8-2.4 Lvl) [facility] HospitalTdkjhaqSPPJADKVVH5099-43-55 10:41:00 Test Item Value Reference Range Interpretation Comments Hgb (test code = Hgb) 7.6 14.0-18.0 [place] 861290-11-01 02:33:00 Test Item Value Reference Range Interpretation Comments Hgb (test code = Hgb) 7.9 14.0-18.0 [facility] HospitalEytstgmEZQBNGTEBM9017-76-80 20:10:00 Test Item Value Reference Range Interpretation Comments Hct (test code = Hct) 23.0 42.0-54.0 [facility]2020-10-31 19:15:00 Test Item Value Reference Range Interpretation Comments Color BF (test code = Light Yellow (08/08/20 Color BF) 2:15 PM) [facility]2020-10-31 19:15:00 Test Item Value Reference Range Interpretation Comments Clarity BF (test code = Slight Cloudy Clarity BF) (08/08/20 2:15 PM) [facility]2020-10-31 19:15:00 Test Item Value Reference Range Interpretation Comments Nucleated Cells BF (test code = 571 Nucleated Cells BF) [facility]2020-10-31 19:15:00 Test Item Value Reference Range Interpretation Comments RBC BF (test code = RBC BF) 512 [facility]2020-10-31 19:15:00 Test Item Value Reference Range Interpretation Comments Neutrophils BF (test code = Neutrophils 18 BF) [facility]2020-10-31 19:15:00 Test Item Value Reference Range Interpretation Comments Lymph BF (test code = Lymph BF) 10 [facility]2020-10-31 19:15:00 Test Item Value Reference Range Interpretation Comments Macrophage BF (test code = Macrophage 44 BF) [facility]2020-10-31 19:15:00 Test Item Value Reference Range Interpretation Comments Eos BF (test code = Eos BF) 26 [facility]2020-10-31 19:15:00 Test Item Value Reference Range Interpretation Comments Meso BF (test code = Meso BF) 2 [facility]2020-10-31 19:15:00 Test Item Value Reference Range Interpretation Comments CellCnt BF Type (test Abdomn (08/08/20 2:15 code = CellCnt BF Type) PM) [facility] HospitalGram Stain Fthdgr5660-37-37 19:15:00 Test Item Value Reference Range Interpretation Comments Gram Stain Report Few WBC's No Organisms (test code = Gram Seen Stain Report) [facility] HospitalCulture: Aspirate/Body Fluid/Tmlpsj5420-95-62 19:15:00 Test Item Value Reference Range Interpretation Comments Culture: Aspirate/Body Fluid/Tissue No Growth (test code = Culture: Aspirate/Body Fluid/Tissue) [facility] HospitalQnovo NYOAMLF4384-21-18 15:28:09 Test Item Value Reference Range Interpretation Comments RBC product (test code Product available = RBC product) 4(08/08/20 10:28 AM) [facility] EKJEBUL1211-09-99 14:41:00 Test Item Value Reference Range Interpretation Comments ABO/Rh (test code = ABO/Rh) O POS [facility] [id number] 14:41:00 Test Item Value Reference Range Interpretation Comments Antibody Scrn (test Negative (08/08/20 code = Antibody Scrn) 9:41 AM) [facility] HospitalGhprdwkBACFUMTPOQ6215-84-07 14:41:00 Test Item Value Reference Range Interpretation Comments WBC (test code = WBC) 6.0 3.7-10.4 [facility] HospitalFhdtzekQZVRKHHPFN2952-54-28 14:41:00 Test Item Value Reference Range Interpretation Comments RBC (test code = RBC) 2.32 4.70-6.10 [facility] HospitalRsvkmknUSRNLAVAWY0904-44-17 14:41:00 Test Item Value Reference Range Interpretation Comments Hct (test code = Hct) 19.8 42.0-54.0 [facility] HospitalOfqfnpfGXPOOEIMYM6185-99-43 14:41:00 Test Item Value Reference Range Interpretation Comments MCV (test code = MCV) 85.6 80.0-94.0 [facility] HospitalOrrqztbQBIMVEHTYG7009-26-21 14:41:00 Test Item Value Reference Range Interpretation Comments MCH (test code = MCH) 29.0 pg 27.0-31.0 [facility] HospitalRzfwlaxJFXVTTVUUL5818-61-62 14:41:00 Test Item Value Reference Range Interpretation Comments MCHC (test code = MCHC) 33.8 32.0-36.0 [place] 861290-10-31 14:41:00 Test Item Value Reference Range Interpretation Comments RDW (test code = RDW) 13.9 11.5-14.5 [place] 861290-10-31 14:41:00 Test Item Value Reference Range Interpretation Comments Platelet (test code = Platelet) 176 133-450 [place] 861290-10-31 14:41:00 Test Item Value Reference Range Interpretation Comments MPV (test code = MPV) 6.8 7.4-10.4 [place] 861290-10-31 14:41:00 Test Item Value Reference Range Interpretation Comments Neutrophils # (test code = Neutrophils 4.1 1.5-8.1 #) [place] 861290-10-31 14:41:00 Test Item Value Reference Range Interpretation Comments Lymphocytes # (test code = Lymphocytes 1.4 1.0-5.5 #) [place] 861290-10-31 14:41:00 Test Item Value Reference Range Interpretation Comments Monocytes # (test code 0.1 See_Comment [Aut omated message] The = Monocytes #) system which generated this result tra nsmitted reference range : <=0.8. The reference r yared was not used to int erpret this result as normal/abnormal . [place] 861290-10-31 14:41:00 Test Item Value Reference Range Interpretation Comments Eosinophils # (test code 0.4 See_Comment [A utomated message] The = Eosinophils #) system whic h generated this result tra nsmitted reference range : <=0.5. The reference r yared was not used to int erpret this result as normal/abnormal . [place] 861290-10-31 14:41:00 Test Item Value Reference Range Interpretation Comments Segs (test code = Segs) 68.0 45.0-75.0 [place] [address]-10-31 14:41:00 Test Item Value Reference Range Interpretation Comments Bands (test code = 1.0 See_Comment [Automat ed message] The Bands) system which ge nerated this result transmit emerson reference range : <=11.0. The reference r yared was not used to interpr et this result as erinn l/abnormal. [place] [address]-10-31 14:41:00 Test Item Value Reference Range Interpretation Comments Lymphocytes (test code = Lymphocytes) 14.0 20.0-40.0 [place] 861290-10-31 14:41:00 Test Item Value Reference Range Interpretation Comments Monocytes (test code = Monocytes) 2.0 2.0-12.0 [place] 861290-10-31 14:41:00 Test Item Value Reference Range Interpretation Comments Eosinophils (test code = 6.0 See_Comment [A utomated message] The Eosinophils) system which ge nerated this result tra nsmitted reference range : <=4.0. The reference r yared was not used to int erpret this result as normal/abnormal . [facility] HospitalKgzcmrcGBSIONZQBY0598-12-55 14:41:00 Test Item Value Reference Range Interpretation Comments Atypical Lymphs (test code = Atypical 9.0 Lymphs) [facility] HospitalDyceiqwNEWAPXPIPY1368-92-50 14:41:00 Test Item Value Reference Range Interpretation Comments RBC Morph (test code = See Note (08/08/20 RBC Morph) 9:41 AM) [place] 861290-10-31 14:41:00 Test Item Value Reference Range Interpretation Comments Plt Morph (test code = Normal (08/08/20 9:41 Plt Morph) AM) [facility] HospitalVkjynseYXATGCGGFM2638-10-52 14:41:00 Test Item Value Reference Range Interpretation Comments Anisocyte (test code = 1+ *ABN*(08/08/20 Anisocyte) 9:41 AM) [place] 861290-10-31 14:41:00 Test Item Value Reference Range Interpretation Comments Macrocyte (test code = 1+ *ABN*(08/08/20 Macrocyte) 9:41 AM) [place] 861290-10-31 14:41:00 Test Item Value Reference Range Interpretation Comments Hypochrom (test code = 1+ (08/08/20 9:41 Hypochrom) AM) [place] [address]-10-31 14:41:00 Test Item Value Reference Range Interpretation Comments Polychrom (test code = Moderate Polychrom) *ABN*(08/08/20 9:41 AM) [facility]2020-10-31 08:42:00 Test Item Value Reference Range Interpretation Comments Glucose Lvl (test code = Glucose Lvl) 80 70-99 [place] 592960-10-31 08:42:00 Test Item Value Reference Range Interpretation Comments BUN (test code = BUN) 34 7-22 [place] 592960-10-31 08:42:00 Test Item Value Reference Range Interpretation Comments Creatinine Lvl (test code = Creatinine 10.90 0.50-1.40 Lvl) [place] 592960-10-31 08:42:00 Test Item Value Reference Range Interpretation Comments Sodium Lvl (test code = Sodium Lvl) 138 135-145 [place] 592960-10-31 08:42:00 Test Item Value Reference Range Interpretation Comments Potassium Lvl (test code = Potassium 3.6 3.5-5.1 Lvl) [place] 592960-10-31 08:42:00 Test Item Value Reference Range Interpretation Comments Chloride Lvl (test code = Chloride Lvl) 99 95-109 [place] 592960-10-31 08:42:00 Test Item Value Reference Range Interpretation Comments CO2 (test code = CO2) 33 24-32 [place] 592960-10-31 08:42:00 Test Item Value Reference Range Interpretation Comments Calcium Lvl (test code = Calcium Lvl) 8.1 8.5-10.5 [place] [id number] 08:42:00 Test Item Value Reference Range Interpretation Comments AGAP (test code = AGAP) 9.6 10.0-20.0 [place] 592960-10-31 08:42:00 Test Item Value Reference Range Interpretation Comments eGFR (test code = eGFR) 5 [place] 592960-10-31 08:42:00 Test Item Value Reference Range Interpretation Comments Phosphorus (test code = Phosphorus) 4.4 2.5-4.5 [place] 861290-10-31 08:42:00 Test Item Value Reference Range Interpretation Comments WBC (test code = WBC) 6.7 3.7-10.4 [place] 861290-10-31 08:42:00 Test Item Value Reference Range Interpretation Comments RBC (test code = RBC) 2.53 4.70-6.10 [place] 861290-10-31 08:42:00 Test Item Value Reference Range Interpretation Comments MCV (test code = MCV) 84.8 80.0-94.0 [place] 861290-10-31 08:42:00 Test Item Value Reference Range Interpretation Comments MCH (test code = MCH) 28.5 pg 27.0-31.0 [place] 861290-10-31 08:42:00 Test Item Value Reference Range Interpretation Comments MCHC (test code = MCHC) 33.6 32.0-36.0 [place] 861290-10-31 08:42:00 Test Item Value Reference Range Interpretation Comments RDW (test code = RDW) 14.4 11.5-14.5 [place] 861290-10-31 08:42:00 Test Item Value Reference Range Interpretation Comments Platelet (test code = Platelet) 182 133-450 [place] 861290-10-31 08:42:00 Test Item Value Reference Range Interpretation Comments MPV (test code = MPV) 7.0 7.4-10.4 [place] [address]-10-31 08:42:00 Test Item Value Reference Range Interpretation Comments Segs (test code = Segs) 71.1 45.0-75.0 [place] 861290-10-31 08:42:00 Test Item Value Reference Range Interpretation Comments Lymphocytes (test code = Lymphocytes) 16.3 20.0-40.0 [place] [address]-10-31 08:42:00 Test Item Value Reference Range Interpretation Comments Monocytes (test code = Monocytes) 8.0 2.0-12.0 [place] [address]-10-31 08:42:00 Test Item Value Reference Range Interpretation Comments Eosinophils (test code = 4.0 See_Comment [A utomated message] The Eosinophils) system which ge nerated this result tra nsmitted reference range : <=4.0. The reference r yared was not used to int erpret this result as normal/abnormal . [place] [address]-10-31 08:42:00 Test Item Value Reference Range Interpretation Comments Basophils (test code = 0.6 See_Comment [Aut omated message] The Basophils) system which ge nerated this result tra nsmitted reference range : <=1.0. The reference r yared was not used to int erpret this result as normal/abnormal . [facility]DMUB7020-09-[facility] 08:42:00 Test Item Value Reference Range Interpretation Comments Neutrophils # (test code = Neutrophils 4.7 1.5-8.1 #) [facility]KpmvhuuTRIIBDCMXG6086-81-11 08:42:00 Test Item Value Reference Range Interpretation Comments Lymphocytes # (test code = Lymphocytes 1.1 1.0-5.5 #) [facility] HospitalIwmcgelSHTZFFMBEJ2469-21-75 08:42:00 Test Item Value Reference Range Interpretation Comments Monocytes # (test code 0.5 See_Comment [Aut omated message] The = Monocytes #) system which generated this result tra nsmitted reference range : <=0.8. The reference r yared was not used to int erpret this result as normal/abnormal . [facility] HospitalYwnexkxMWYQRHVMQW4581-01-50 08:42:00 Test Item Value Reference Range Interpretation Comments Eosinophils # (test code 0.3 See_Comment [A utomated message] The = Eosinophils #) system whic h generated this result tra nsmitted reference range : <=0.5. The reference r yared was not used to int erpret this result as normal/abnormal . [facility] HospitalJmgsjsuQXHVYPPVUU6648-95-65 02:01:00 Test Item Value Reference Range Interpretation Comments PT (test code = PT) 13.2 s 12.0-14.7 [facility] HospitalTxljqyyQRYYFWRDPY3769-43-46 02:01:00 Test Item Value Reference Range Interpretation Comments INR (test code = INR) 1.00 1 0.85-1.17 [place] 861290-10-31 02:01:00 Test Item Value Reference Range Interpretation Comments PTT (test code = PTT) 29.8 s 22.9-35.8 [place] 861290-10-31 02:01:00 Test Item Value Reference Range Interpretation Comments Basophils (test code = 0.6 See_Comment [Aut omated message] The Basophils) system which ge nerated this result tra nsmitted reference range : <=1.0. The reference r yared was not used to int erpret this result as normal/abnormal . [facility] HospitalXinwiebOCYIJZBRNO3298-27-87 02:01:00 Test Item Value Reference Range Interpretation Comments Hep Bs Ag (test code Negative *NA*(10/30/20 = Hep Bs Ag) 9:01 PM) [facility]2020-10-30 21:23:00 Test Item Value Reference Range Interpretation Comments Glucose Lvl (test code = Glucose Lvl) 72 70-99 [facility]2020-10-30 21:23:00 Test Item Value Reference Range Interpretation Comments BUN (test code = BUN) 28 7-22 [facility]2020-10-30 21:23:00 Test Item Value Reference Range Interpretation Comments Creatinine Lvl (test code = Creatinine 9.63 0.50-1.40 Lvl) [facility]2020-10-30 21:23:00 Test Item Value Reference Range Interpretation Comments Sodium Lvl (test code = Sodium Lvl) 137 135-145 [facility]2020-10-30 21:23:00 Test Item Value Reference Range Interpretation Comments Potassium Lvl (test code = Potassium 3.6 3.5-5.1 Lvl) [facility]2020-10-30 21:23:00 Test Item Value Reference Range Interpretation Comments Chloride Lvl (test code = Chloride Lvl) 99 95-109 [facility]2020-10-30 21:23:00 Test Item Value Reference Range Interpretation Comments CO2 (test code = CO2) 32 24-32 [facility]2020-10-30 21:23:00 Test Item Value Reference Range Interpretation Comments AGAP (test code = AGAP) 9.6 10.0-20.0 [facility]2020-10-30 21:23:00 Test Item Value Reference Range Interpretation Comments Calcium Lvl (test code = Calcium Lvl) 8.3 8.5-10.5 [facility]2020-10-30 21:23:00 Test Item Value Reference Range Interpretation Comments eGFR (test code = eGFR) 5 [facility] HospitalVgkrytcWWDEHTYSZO7204-10-03 15:21:00 Test Item Value Reference Range Interpretation Comments Coronavirus (COVID-19) Not Detected JUVENCIO (test code = (08/07/20 10:21 AM) Coronavirus (COVID-19) JUVENCIO) [facility] [id number] 08:08:00 Test Item Value Reference Range Interpretation Comments Total CK (test code = Total CK) 50 12-191 [facility]2020-10-30 08:08:00 Test Item Value Reference Range Interpretation Comments B/C Ratio (test code = B/C Ratio) 3 1 6-25 [facility] [id number] 08:08:00 Test Item Value Reference Range Interpretation Comments Total Protein (test code = Total 4.5 6.4-8.4 Protein) [facility] [id number] 08:08:00 Test Item Value Reference Range Interpretation Comments Albumin Lvl (test code = Albumin Lvl) 1.4 3.5-5.0 [facility] [id number] 08:08:00 Test Item Value Reference Range Interpretation Comments Globulin (test code = Globulin) 3.1 2.7-4.2 [facility] [id number] 08:08:00 Test Item Value Reference Range Interpretation Comments A/G Ratio (test code = A/G Ratio) 0.5 1 0.7-1.6 [facility] [id number] 08:08:00 Test Item Value Reference Range Interpretation Comments ALT (test code = ALT) 15 See_Comment [Auto mated message] The system which ge nerated this result transmit emerson reference range : <=65. The reference range was not used to interpr et this result as erinn l/abnormal. [facility] [id number] 08:08:00 Test Item Value Reference Range Interpretation Comments AST (test code = AST) 16 See_Comment [Auto mated message] The system which ge nerated this result transmit emerson reference range : <=37. The reference range was not used to interpr et this result as erinn l/abnormal. [facility] [id number] 08:08:00 Test Item Value Reference Range Interpretation Comments Alk Phos (test code = Alk Phos) 82 39-136 [facility] [id number] 08:08:00 Test Item Value Reference Range Interpretation Comments Bili Total (test code = Bili Total) 0.4 0.2-1.3 [facility] [id number] 08:08:00 Test Item Value Reference Range Interpretation Comments Magnesium Lvl (test code = Magnesium 1.7 1.8-2.4 Lvl) [facility] [id number] 08:08:00 Test Item Value Reference Range Interpretation Comments Phosphorus (test code = Phosphorus) 3.8 2.5-4.5 [place] 861290-10-30 08:08:00 Test Item Value Reference Range Interpretation Comments PT (test code = PT) 13.0 s 12.0-14.7 [place] [address]-10-30 08:08:00 Test Item Value Reference Range Interpretation Comments INR (test code = INR) 0.98 1 0.85-1.17 [place] [address]-10-30 08:08:00 Test Item Value Reference Range Interpretation Comments PTT (test code = PTT) 30.5 s 22.9-35.8 [place] [address]-10-30 08:08:00 Test Item Value Reference Range Interpretation Comments Basophils # (test code 0.1 See_Comment [Aut omated message] The = Basophils #) system which generated this result tra nsmitted reference range : <=0.2. The reference r yared was not used to int erpret this result as normal/abnormal . [place] [address]-10-30 02:04:00 Test Item Value Reference Range Interpretation Comments Basophils # (test code 0.1 See_Comment [Aut omated message] The = Basophils #) system which generated this result tra nsmitted reference range : <=0.2. The reference r yared was not used to int erpret this result as normal/abnormal . [facility] [id number] 01:34:00 Test Item Value Reference Range Interpretation Comments Total Protein (test code = Total 4.8 6.4-8.4 Protein) [facility] [id number] 01:34:00 Test Item Value Reference Range Interpretation Comments Albumin Lvl (test code = Albumin Lvl) 1.6 3.5-5.0 [facility] [id number] 01:34:00 Test Item Value Reference Range Interpretation Comments Globulin (test code = Globulin) 3.2 2.7-4.2 [facility] [id number] 01:34:00 Test Item Value Reference Range Interpretation Comments A/G Ratio (test code = A/G Ratio) 0.5 1 0.7-1.6 [facility] [id number] 01:34:00 Test Item Value Reference Range Interpretation Comments ALT (test code = ALT) 14 See_Comment [Auto mated message] The system which ge nerated this result transmit emerson reference range : <=65. The reference range was not used to interpr et this result as erinn l/abnormal. [facility] [id number] 01:34:00 Test Item Value Reference Range Interpretation Comments AST (test code = AST) 16 See_Comment [Auto mated message] The system which ge nerated this result transmit emerson reference range : <=37. The reference range was not used to interpr et this result as erinn l/abnormal. [facility] [id number] 01:34:00 Test Item Value Reference Range Interpretation Comments Alk Phos (test code = Alk Phos) 85 39-136 [facility] [id number] 01:34:00 Test Item Value Reference Range Interpretation Comments Bili Total (test code = Bili Total) 0.4 0.2-1.3 [facility] [id number] 01:34:00 Test Item Value Reference Range Interpretation Comments Bili Direct (test code no gt See_Comment [Aut omated message] The = Bili Direct) system which generated this result tra nsmitted reference range : <=0.3. The reference r yared was not used to int erpret this result as erinn l/abnormal. [facility] [id number] 01:34:00 Test Item Value Reference Range Interpretation Comments Bili Indirect Unable to See_Comment [Automated (test code = Bili Calculate message] T he system Indirect) which generated this result transmitted reference range : <=1.0. The reference range was not used to interpret this result as normal/abnormal . [facility] [id number] 22:24:00 Test Item Value Reference Range Interpretation Comments Troponin-I (test code 0.03 See_Comment [Auto mated message] The = Troponin-I) system which g enerated this result transmit emerson reference range : <=0.40. The reference r yared was not used to interpr et this result as erinn l/abnormal. [facility] [id number] 22:24:00 Test Item Value Reference Range Interpretation Comments Magnesium Lvl (test code = Magnesium 1.6 1.8-2.4 Lvl) [facility] H[id number] 22:24:00 Test Item Value Reference Range Interpretation Comments Bands (test code = 2.0 See_Comment [Automat ed message] The Bands) system which ge nerated this result transmit emerson reference range : <=11.0. The reference r yared was not used to interpr et this result as erinn l/abnormal. [facility] HospitalJjgyavyWPMDTSHVGC7633-11-40 22:24:00 Test Item Value Reference Range Interpretation Comments Metamyelocytes (test code 1.0 See_Comment [ Automated message] = Metamyelocytes) The system which generated this result transmitted ref erence range: <=1.0. T he reference range was not used to int erpret this result as normal/abnormal . [facility] H[id number] 22:24:00 Test Item Value Reference Range Interpretation Comments Myelocytes (test code = Myelocytes) 1.0 [facility] HospitalWgzvexfHBYYXNVWFA0844-53-25 22:24:00 Test Item Value Reference Range Interpretation Comments Atypical Lymphs (test code = Atypical 0.0 Lymphs) [facility] HospitalV[id number] 22:24:00 Test Item Value Reference Range Interpretation Comments RBC Morph (test code = Normal (08/06/20 5:24 RBC Morph) PM) [facility] HospitalOwahvfjCBYXKSXVHD1743-13-12 22:24:00 Test Item Value Reference Range Interpretation Comments Plt Morph (test code = Normal (08/06/20 5:24 Plt Morph) PM) [facility] HospitalIywtzkyWMASWCOEKY6379-69-79 22:24:00 Test Item Value Reference Range Interpretation Comments Toxic Gran (test code Moderate *ABN*(08/06/20 = Toxic Gran) 5:24 PM) [facility] HospitalBzbhkmbUQIXOYTCXF6582-58-63 22:24:00 Test Item Value Reference Range Interpretation Comments PT (test code = PT) 12.9 s 12.0-14.7 [facility] H[id number] 22:24:00 Test Item Value Reference Range Interpretation Comments INR (test code = INR) 0.97 1 0.85-1.17 [facility] [id number] 13:32:00 Test Item Value Reference Range Interpretation Comments Troponin-I (test code 0.03 See_Comment [Auto mated message] The = Troponin-I) system which g enerated this result transmit emerson reference range : <=0.40. The reference r yared was not used to interpr et this result as erinn l/abnormal. [facility] [id number] 13:32:00 Test Item Value Reference Range Interpretation Comments Glucose Lvl (test code = Glucose Lvl) 101 70-99 [facility]2020-10-16 13:32:00 Test Item Value Reference Range Interpretation Comments BUN (test code = BUN) 25 7-22 [facility]2020-10-16 13:32:00 Test Item Value Reference Range Interpretation Comments Creatinine Lvl (test code = Creatinine 9.66 0.50-1.40 Lvl) [facility]2020-10-16 13:32:00 Test Item Value Reference Range Interpretation Comments Sodium Lvl (test code = Sodium Lvl) 132 135-145 [facility] [id number] 13:32:00 Test Item Value Reference Range Interpretation Comments Potassium Lvl (test code = Potassium 3.0 3.5-5.1 Lvl) [facility]2020-10-16 13:32:00 Test Item Value Reference Range Interpretation Comments Chloride Lvl (test code = Chloride Lvl) 91 95-109 [facility] [id number] 13:32:00 Test Item Value Reference Range Interpretation Comments CO2 (test code = CO2) 32 24-32 [place] 592960-10-16 13:32:00 Test Item Value Reference Range Interpretation Comments AGAP (test code = AGAP) 12.0 10.0-20.0 [facility] [id number] 13:32:00 Test Item Value Reference Range Interpretation Comments Calcium Lvl (test code = Calcium Lvl) 8.7 8.5-10.5 [facility] [id number] 13:32:00 Test Item Value Reference Range Interpretation Comments B/C Ratio (test code = B/C Ratio) 3 1 6-25 [place] 592960-10-16 13:32:00 Test Item Value Reference Range Interpretation Comments Total Protein (test code = Total 4.9 6.4-8.4 Protein) [facility]2020-10-16 13:32:00 Test Item Value Reference Range Interpretation Comments Albumin Lvl (test code = Albumin Lvl) 1.5 3.5-5.0 [place] 592960-10-16 13:32:00 Test Item Value Reference Range Interpretation Comments Globulin (test code = Globulin) 3.4 2.7-4.2 [place] 592960-10-16 13:32:00 Test Item Value Reference Range Interpretation Comments A/G Ratio (test code = A/G Ratio) 0.4 1 0.7-1.6 [place] [address]-10-16 13:32:00 Test Item Value Reference Range Interpretation Comments ALT (test code = ALT) 16 See_Comment [Auto mated message] The system which ge nerated this result transmit emerson reference range : <=65. The reference range was not used to interpr et this result as erinn l/abnormal. [place] 592960-10-16 13:32:00 Test Item Value Reference Range Interpretation Comments AST (test code = AST) 22 See_Comment [Auto mated message] The system which ge nerated this result transmit emerson reference range : <=37. The reference range was not used to interpr et this result as erinn l/abnormal. [facility]2020-10-16 13:32:00 Test Item Value Reference Range Interpretation Comments Alk Phos (test code = Alk Phos) 88 39-136 [facility]2020-10-16 13:32:00 Test Item Value Reference Range Interpretation Comments Bili Total (test code = Bili Total) 0.5 0.2-1.3 [place] 592960-10-16 13:32:00 Test Item Value Reference Range Interpretation Comments eGFR (test code = eGFR) 5 [facility] HospitalCqfaxtyESHBSYPZJQ9095-46-87 13:32:00 Test Item Value Reference Range Interpretation Comments WBC (test code = WBC) 6.2 3.7-10.4 [facility] HospitalTkgytmlHRERNFMNRD2419-70-73 13:32:00 Test Item Value Reference Range Interpretation Comments RBC (test code = RBC) 2.89 4.70-6.10 [place] 861290-10-16 13:32:00 Test Item Value Reference Range Interpretation Comments Hgb (test code = Hgb) 8.4 14.0-18.0 [place] [address]-10-16 13:32:00 Test Item Value Reference Range Interpretation Comments Hct (test code = Hct) 24.1 42.0-54.0 [facility] HospitalZssagxxXFMYFMPFGP9832-97-07 13:32:00 Test Item Value Reference Range Interpretation Comments MCV (test code = MCV) 83.3 80.0-94.0 [place] 861290-10-16 13:32:00 Test Item Value Reference Range Interpretation Comments MCH (test code = MCH) 29.0 pg 27.0-31.0 [place] 861290-10-16 13:32:00 Test Item Value Reference Range Interpretation Comments MCHC (test code = MCHC) 34.8 32.0-36.0 [facility] HospitalNwezglpGNFGIUTLST0019-69-27 13:32:00 Test Item Value Reference Range Interpretation Comments RDW (test code = RDW) 13.6 11.5-14.5 [place] 861290-10-16 13:32:00 Test Item Value Reference Range Interpretation Comments Platelet (test code = Platelet) 221 133-450 [facility] HospitalQnbgegkMOGNNUVUKM3523-01-69 13:32:00 Test Item Value Reference Range Interpretation Comments MPV (test code = MPV) 6.6 7.4-10.4 [facility] HospitalQtjsbkjKUBUXEXIBV6668-95-55 13:32:00 Test Item Value Reference Range Interpretation Comments Segs (test code = Segs) 73.5 45.0-75.0 [facility] HospitalYncjswmKAPOLYJCFQ8377-32-69 13:32:00 Test Item Value Reference Range Interpretation Comments Lymphocytes (test code = Lymphocytes) 11.4 20.0-40.0 [place] 861290-10-16 13:32:00 Test Item Value Reference Range Interpretation Comments Monocytes (test code = Monocytes) 8.7 2.0-12.0 [place] [address]-10-16 13:32:00 Test Item Value Reference Range Interpretation Comments Eosinophils (test code = 5.4 See_Comment [A utomated message] The Eosinophils) system which ge nerated this result tra nsmitted reference range : <=4.0. The reference r yared was not used to int erpret this result as normal/abnormal . [facility] HospitalNkiditoQOKBEZIKCC1992-85-42 13:32:00 Test Item Value Reference Range Interpretation Comments Basophils (test code = 1.0 See_Comment [Aut omated message] The Basophils) system which ge nerated this result tra nsmitted reference range : <=1.0. The reference r yared was not used to int erpret this result as normal/abnormal . [place] 861290-10-16 13:32:00 Test Item Value Reference Range Interpretation Comments Neutrophils # (test code = Neutrophils 4.5 1.5-8.1 #) [place] 861290-10-16 13:32:00 Test Item Value Reference Range Interpretation Comments Lymphocytes # (test code = Lymphocytes 0.7 1.0-5.5 #) [place] 861290-10-16 13:32:00 Test Item Value Reference Range Interpretation Comments Monocytes # (test code 0.5 See_Comment [Aut omated message] The = Monocytes #) system which generated this result tra nsmitted reference range : <=0.8. The reference r yared was not used to int erpret this result as normal/abnormal . [place] 861290-10-16 13:32:00 Test Item Value Reference Range Interpretation Comments Eosinophils # (test code 0.3 See_Comment [A utomated message] The = Eosinophils #) system whic h generated this result tra nsmitted reference range : <=0.5. The reference r yared was not used to int erpret this result as normal/abnormal . [place] 861290-10-16 13:32:00 Test Item Value Reference Range Interpretation Comments Basophils # (test code 0.1 See_Comment [Aut omated message] The = Basophils #) system which generated this result tra nsmitted reference range : <=0.2. The reference r yared was not used to int erpret this result as normal/abnormal . [facility] [id number] 08:13:00 Test Item Value Reference Range Interpretation Comments Glucose Lvl (test code = Glucose Lvl) 125 70-99 [facility] [id number] 08:13:00 Test Item Value Reference Range Interpretation Comments BUN (test code = BUN) 26 7-22 [facility] [id number] 08:13:00 Test Item Value Reference Range Interpretation Comments Creatinine Lvl (test code = Creatinine 9.23 0.50-1.40 Lvl) [facility]2020-10-07 08:13:00 Test Item Value Reference Range Interpretation Comments Sodium Lvl (test code = Sodium Lvl) 135 135-145 [facility]2020-10-07 08:13:00 Test Item Value Reference Range Interpretation Comments Potassium Lvl (test code = Potassium 3.8 3.5-5.1 Lvl) [facility]2020-10-07 08:13:00 Test Item Value Reference Range Interpretation Comments Chloride Lvl (test code = Chloride Lvl) 97 95-109 [facility]2020-10-07 08:13:00 Test Item Value Reference Range Interpretation Comments CO2 (test code = CO2) 28 24-32 [facility] [place]2020-[place]07 08:13:00 Test Item Value Reference Range Interpretation Comments Calcium Lvl (test code = Calcium Lvl) 9.0 8.5-10.5 [facility]2020-10-07 08:13:00 Test Item Value Reference Range Interpretation Comments AGAP (test code = AGAP) 13.8 10.0-20.0 [facility]2020-10-07 08:13:00 Test Item Value Reference Range Interpretation Comments eGFR (test code = eGFR) 6 [facility] [id number] 22:34:00 Test Item Value Reference Range Interpretation Comments C difficile DNA (test Negative (07/14/20 5:34 code = C difficile DNA) PM) [facility] AND [id number] 22:34:00 Test Item Value Reference Range Interpretation Comments Fecal Leukocyte (test None Seen (07/14/20 code = Fecal Leukocyte) 5:34 PM) [facility]2020-10-06 08:37:00 Test Item Value Reference Range Interpretation Comments Glucose Lvl (test code = Glucose Lvl) 125 70-99 [facility]2020-10-06 08:37:00 Test Item Value Reference Range Interpretation Comments BUN (test code = BUN) 30 7-22 [facility]2020-10-06 08:37:00 Test Item Value Reference Range Interpretation Comments Creatinine Lvl (test code = Creatinine 9.56 0.50-1.40 Lvl) [facility]2020-10-06 08:37:00 Test Item Value Reference Range Interpretation Comments Sodium Lvl (test code = Sodium Lvl) 136 135-145 [place] [id number] 08:37:00 Test Item Value Reference Range Interpretation Comments Potassium Lvl (test code = Potassium 3.4 3.5-5.1 Lvl) [facility]2020-10-06 08:37:00 Test Item Value Reference Range Interpretation Comments Chloride Lvl (test code = Chloride Lvl) 99 95-109 [place] 592960-10-06 08:37:00 Test Item Value Reference Range Interpretation Comments CO2 (test code = CO2) 28 24-32 [place] 592960-10-06 08:37:00 Test Item Value Reference Range Interpretation Comments Calcium Lvl (test code = Calcium Lvl) 8.6 8.5-10.5 [place] 592960-10-06 08:37:00 Test Item Value Reference Range Interpretation Comments AGAP (test code = AGAP) 12.4 10.0-20.0 [facility]2020-10-06 08:37:00 Test Item Value Reference Range Interpretation Comments eGFR (test code = eGFR) 5 [facility]2020-10-06 01:30:00 Test Item Value Reference Range Interpretation Comments Color BF (test code = Light Yellow (07/13/20 Color BF) 8:30 PM) [place] 134280-10-06 01:30:00 Test Item Value Reference Range Interpretation Comments Clarity BF (test code = Clear (07/13/20 8:30 Clarity BF) PM) [place] 134280-10-06 01:30:00 Test Item Value Reference Range Interpretation Comments Supernat BF (test code Colorless (07/13/20 8:30 = Supernat BF) PM) [place] 134280-10-06 01:30:00 Test Item Value Reference Range Interpretation Comments Nucleated Cells BF (test code = 267 Nucleated Cells BF) [facility]2020-10-06 01:30:00 Test Item Value Reference Range Interpretation Comments RBC BF (test code = RBC BF) 365 [facility]2020-10-06 01:30:00 Test Item Value Reference Range Interpretation Comments CellCnt BF Type (test Periton (10/5/20 8:30 code = CellCnt BF Type) PM) [facility] [place] [id number] 01:30:00 Test Item Value Reference Range Interpretation Comments Neutrophils BF (test code = Neutrophils [address]) [facility] [id number] 01:30:00 Test Item Value Reference Range Interpretation Comments Lymph BF (test code = Lymph BF) 16 [facility] [place] [id number] 01:30:00 Test Item Value Reference Range Interpretation Comments Macrophage BF (test code = Macrophage 53 BF) [facility] [place] [id number] 01:30:00 Test Item Value Reference Range Interpretation Comments Eos BF (test code = Eos BF) 6 [facility] [id number] 01:30:00 Test Item Value Reference Range Interpretation Comments Meso BF (test code = Meso BF) 2 [facility] HospitalGram Stain [id number] 01:30:00 Test Item Value Reference Range Interpretation Comments Gram Stain Report Few WBC's No Organisms (test code = Gram Seen Stain Report) [facility] HospitalCulture: Aspirate/Body Fluid/[id number] 01:30:00 Test Item Value Reference Range Interpretation Comments Culture: Aspirate/Body Fluid/Tissue No Growth (test code = Culture: Aspirate/Body Fluid/Tissue) [facility] [id number] 08:35:00 Test Item Value Reference Range Interpretation Comments Glucose Lvl (test code = Glucose Lvl) 113 70-99 [facility] [id number] 08:35:00 Test Item Value Reference Range Interpretation Comments BUN (test code = BUN) 29 7-22 [facility] [id number] 08:35:00 Test Item Value Reference Range Interpretation Comments Creatinine Lvl (test code = Creatinine 9.77 0.50-1.40 Lvl) [facility] [id number] 08:35:00 Test Item Value Reference Range Interpretation Comments Sodium Lvl (test code = Sodium Lvl) 133 135-145 [facility] [id number] 08:35:00 Test Item Value Reference Range Interpretation Comments Potassium Lvl (test code = Potassium 3.4 3.5-5.1 Lvl) [facility] [id number] 08:35:00 Test Item Value Reference Range Interpretation Comments Chloride Lvl (test code = Chloride Lvl) 97 95-109 [facility] [id number] 08:35:00 Test Item Value Reference Range Interpretation Comments CO2 (test code = CO2) 31 24-32 [facility] [id number] 08:35:00 Test Item Value Reference Range Interpretation Comments Calcium Lvl (test code = Calcium Lvl) 8.8 8.5-10.5 [facility] [id number] 08:35:00 Test Item Value Reference Range Interpretation Comments AGAP (test code = AGAP) 8.4 10.0-20.0 [facility] [id number] 08:35:00 Test Item Value Reference Range Interpretation Comments eGFR (test code = eGFR) 5 [facility] HospitalAnaconda [id number] 00:15:00 Test Item Value Reference Range Interpretation Comments Color BF (test code = Light Yellow (07/12/20 Color BF) 7:15 PM) [facility] HospitalAnaconda [id number] 00:15:00 Test Item Value Reference Range Interpretation Comments Clarity BF (test code = Clear (07/12/20 7:15 Clarity BF) PM) [facility] HospitalAnac[facility] [id number] 00:15:00 Test Item Value Reference Range Interpretation Comments Supernat BF (test code Colorless (07/12/20 7:15 = Supernat BF) PM) [facility] HospitalAnaconda [id number] 00:15:00 Test Item Value Reference Range Interpretation Comments Nucleated Cells BF (test code = 227 Nucleated Cells BF) [facility] HospitalAnac[facility] [id number] 00:15:00 Test Item Value Reference Range Interpretation Comments RBC BF (test code = RBC BF) 247 [facility] HospitalAnaconda [id number] 00:15:00 Test Item Value Reference Range Interpretation Comments Neutrophils BF (test code = Neutrophils 27 BF) [facility] HospitalAnac[facility] [id number] 00:15:00 Test Item Value Reference Range Interpretation Comments Lymph BF (test code = Lymph BF) 15 [facility] HospitalAnaconda PharmaYXTEBV6103-59-25 00:15:00 Test Item Value Reference Range Interpretation Comments Macrophage BF (test code = Macrophage [address]) [facility] [id number] 00:15:00 Test Item Value Reference Range Interpretation Comments Eos BF (test code = Eos BF) 3 [facility] [id number] 00:15:00 Test Item Value Reference Range Interpretation Comments Meso BF (test code = Few (07/12/20 7:15 PM) Meso BF) [facility] HospitalBODY [id number] 00:15:00 Test Item Value Reference Range Interpretation Comments Other BF (test code = See Note 4(07/12/20 Other BF) 7:15 PM) [facility] HospitalBODY [id number] 00:15:00 Test Item Value Reference Range Interpretation Comments CellCnt BF Type (test Periton (07/12/20 7:15 code = CellCnt BF Type) PM) [facility] HospitalGram Stain [id number] 00:15:00 Test Item Value Reference Range Interpretation Comments Gram Stain Report Rare WBC's No Organisms (test code = Gram Seen Stain Report) [facility] HospitalCulture: Aspirate/Body Fluid/Fibyws9955-72-32 00:15:00 Test Item Value Reference Range Interpretation Comments Culture: Aspirate/Body Fluid/Tissue No Growth (test code = Culture: Aspirate/Body Fluid/Tissue) [facility] HospitalAlcrpzhRHOIHLXSDK5077-99-48 09:50:00 Test Item Value Reference Range Interpretation Comments Segs (test code = Segs) 74.0 45.0-75.0 [facility] HospitalEuozjlsUIXRWNWZMC1828-89-17 09:50:00 Test Item Value Reference Range Interpretation Comments Lymphocytes (test code = Lymphocytes) 14.8 20.0-40.0 [facility] HospitalWvshtixYRLKNZVFMZ8243-25-70 09:50:00 Test Item Value Reference Range Interpretation Comments Monocytes (test code = Monocytes) 7.1 2.0-12.0 [facility] HospitalInixzglBMMWVXLRDM1449-26-86 09:50:00 Test Item Value Reference Range Interpretation Comments Eosinophils (test code = 3.5 See_Comment [A utomated message] The Eosinophils) system which ge nerated this result tra nsmitted reference range : <=4.0. The reference r yared was not used to int erpret this result as normal/abnormal . [facility] HospitalZspoluiKGUBFYIMCP9849-31-22 09:50:00 Test Item Value Reference Range Interpretation Comments Basophils (test code = 0.6 See_Comment [Aut omated message] The Basophils) system which ge nerated this result tra nsmitted reference range : <=1.0. The reference r yared was not used to int erpret this result as normal/abnormal . [facility] HospitalWulhcbiBTLALTJJLM8140-70-64 09:50:00 Test Item Value Reference Range Interpretation Comments Neutrophils # (test code = Neutrophils 4.9 1.5-8.1 #) [facility] HospitalXgmlfntUSYZJAZJNB7413-77-31 09:50:00 Test Item Value Reference Range Interpretation Comments Lymphocytes # (test code = Lymphocytes 1.0 1.0-5.5 #) [facility] HospitalVbhrcgnFYGCILUQYM0819-09-67 09:50:00 Test Item Value Reference Range Interpretation Comments Monocytes # (test code 0.5 See_Comment [Aut omated message] The = Monocytes #) system which generated this result tra nsmitted reference range : <=0.8. The reference r yared was not used to int erpret this result as normal/abnormal . [place] [address]-10-04 09:50:00 Test Item Value Reference Range Interpretation Comments Eosinophils # (test code 0.2 See_Comment [A utomated message] The = Eosinophils #) system whic h generated this result tra nsmitted reference range : <=0.5. The reference r yared was not used to int erpret this result as normal/abnormal . [facility] HospitalOpfbvdjUIXKWKOGPK5732-99-03 09:50:00 Test Item Value Reference Range Interpretation Comments WBC (test code = WBC) 6.7 3.7-10.4 [place] 861290-10-04 09:50:00 Test Item Value Reference Range Interpretation Comments RBC (test code = RBC) 2.86 4.70-6.10 [place] 861290-10-04 09:50:00 Test Item Value Reference Range Interpretation Comments Hgb (test code = Hgb) 8.3 14.0-18.0 [place] [address]-10-04 09:50:00 Test Item Value Reference Range Interpretation Comments Hct (test code = Hct) 24.4 42.0-54.0 [place] [address]-10-04 09:50:00 Test Item Value Reference Range Interpretation Comments MCV (test code = MCV) 85.1 80.0-94.0 [place] [address]-10-04 09:50:00 Test Item Value Reference Range Interpretation Comments MCH (test code = MCH) 29.0 pg 27.0-31.0 [facility] KingwoodErzvvpaJFYEEBNFLF6239-82-27 09:50:00 Test Item Value Reference Range Interpretation Comments MCHC (test code = MCHC) 34.1 32.0-36.0 [facility] HospitalNvmlxvwKEBJBJUTNV5251-51-17 09:50:00 Test Item Value Reference Range Interpretation Comments RDW (test code = RDW) 14.1 11.5-14.5 [facility] HospitalCpgxfijFHPPLFMKKJ4454-91-37 09:50:00 Test Item Value Reference Range Interpretation Comments Platelet (test code = Platelet) 209 133-450 [facility] HospitalQqtfwpdMQTQDNJXQC5038-56-84 09:50:00 Test Item Value Reference Range Interpretation Comments MPV (test code = MPV) 6.6 7.4-10.4 [facility] HospitalNrthsvnKEUJYATMKW6945-83-51 09:50:00 Test Item Value Reference Range Interpretation Comments Vanco Lvl (test code = Vanco Lvl) 13.1 [facility] [id number] 00:50:00 Test Item Value Reference Range Interpretation Comments Color BF (test code = Light Yellow (07/11/20 Color BF) 7:50 PM) [facility] [id number] 00:50:00 Test Item Value Reference Range Interpretation Comments Clarity BF (test code = Slight Cloudy (07/11/20 Clarity BF) 7:50 PM) [facility] [id number] 00:50:00 Test Item Value Reference Range Interpretation Comments Supernat BF (test code Colorless (07/11/20 7:50 = Supernat BF) PM) [facility] [id number] 00:50:00 Test Item Value Reference Range Interpretation Comments Nucleated Cells BF (test code = 474 Nucleated Cells BF) [facility] [id number] 00:50:00 Test Item Value Reference Range Interpretation Comments RBC BF (test code = RBC BF) 79 [facility] [id number] 00:50:00 Test Item Value Reference Range Interpretation Comments Neutrophils BF (test code = Neutrophils 53 BF) [facility] [id number] 00:50:00 Test Item Value Reference Range Interpretation Comments Lymph BF (test code = Lymph BF) 10 [facility] [id number] 00:50:00 Test Item Value Reference Range Interpretation Comments Macrophage BF (test code = Macrophage 33 BF) [facility] [id number] 00:50:00 Test Item Value Reference Range Interpretation Comments Eos BF (test code = Eos BF) 3 [facility] [id number] 00:50:00 Test Item Value Reference Range Interpretation Comments Meso BF (test code = Meso BF) 1 [facility]2020-10-04 00:50:00 Test Item Value Reference Range Interpretation Comments CellCnt BF Type (test Periton (07/11/20 7:50 code = CellCnt BF Type) PM) [facility] HospitalZechzpsCQETOEKUJL7651-52-77 08:20:00 Test Item Value Reference Range Interpretation Comments WBC (test code = WBC) 6.2 3.7-10.4 [facility] HospitalWunyvwpXUYJJUOHYG4355-44-96 08:20:00 Test Item Value Reference Range Interpretation Comments RBC (test code = RBC) 2.74 4.70-6.10 [facility] HospitalYaknmqoAODWMSFNSS3335-00-37 08:20:00 Test Item Value Reference Range Interpretation Comments Hgb (test code = Hgb) 8.0 14.0-18.0 [facility] HospitalWjipnsvACCOVMNDTT2734-84-03 08:20:00 Test Item Value Reference Range Interpretation Comments Hct (test code = Hct) 23.1 42.0-54.0 [facility] HospitalXgbunbxJTYAWFBLOP0040-51-59 08:20:00 Test Item Value Reference Range Interpretation Comments MCV (test code = MCV) 84.4 80.0-94.0 [facility] HospitalClwekmsUOETZBLHCM8250-30-69 08:20:00 Test Item Value Reference Range Interpretation Comments MCH (test code = MCH) 29.2 pg 27.0-31.0 [facility] HospitalHsomtrpHNDWLMMMHR8379-96-75 08:20:00 Test Item Value Reference Range Interpretation Comments MCHC (test code = MCHC) 34.7 32.0-36.0 [facility] HospitalJwhkemxLYXSQJOXMK2875-70-61 08:20:00 Test Item Value Reference Range Interpretation Comments RDW (test code = RDW) 13.9 11.5-14.5 [facility] HospitalVntdbqyASWYUGJWKP9797-53-76 08:20:00 Test Item Value Reference Range Interpretation Comments Platelet (test code = Platelet) 199 133-450 [facility] HospitalNhsuljyNMFQUDAJTP3279-53-15 08:20:00 Test Item Value Reference Range Interpretation Comments MPV (test code = MPV) 6.8 7.4-10.4 [facility] HospitalStauyptVLJPIKAIPJ3614-45-99 08:20:00 Test Item Value Reference Range Interpretation Comments Segs (test code = Segs) 74.0 45.0-75.0 [facility] HospitalXsswogfNCORROOLNB8737-23-25 08:20:00 Test Item Value Reference Range Interpretation Comments Lymphocytes (test code = Lymphocytes) 13.2 20.0-40.0 [facility] HospitalDpnftjoOJUGLTVBPT6717-07-22 08:20:00 Test Item Value Reference Range Interpretation Comments Monocytes (test code = Monocytes) 9.1 2.0-12.0 [facility] HospitalLloguldPRPKPBAOSY8061-70-68 08:20:00 Test Item Value Reference Range Interpretation Comments Eosinophils (test code = 3.2 See_Comment [A utomated message] The Eosinophils) system which ge nerated this result tra nsmitted reference range : <=4.0. The reference r yared was not used to int erpret this result as normal/abnormal . [facility] HospitalSptucubOOIZTGMZJP3975-01-70 08:20:00 Test Item Value Reference Range Interpretation Comments Basophils (test code = 0.5 See_Comment [Aut omated message] The Basophils) system which ge nerated this result tra nsmitted reference range : <=1.0. The reference r yared was not used to int erpret this result as normal/abnormal . [facility] HospitalWoskvxnEDFTHPPAWR5110-20-31 08:20:00 Test Item Value Reference Range Interpretation Comments Neutrophils # (test code = Neutrophils 4.6 1.5-8.1 #) [facility] HospitalObvseuuHBZHCAZHSE9414-10-21 08:20:00 Test Item Value Reference Range Interpretation Comments Lymphocytes # (test code = Lymphocytes 0.8 1.0-5.5 #) [facility] HospitalVjplaneWGFXPVQYWH4990-83-40 08:20:00 Test Item Value Reference Range Interpretation Comments Monocytes # (test code 0.6 See_Comment [Aut omated message] The = Monocytes #) system which generated this result tra nsmitted reference range : <=0.8. The reference r yared was not used to int erpret this result as normal/abnormal . [facility] HospitalQpvofoeUWJQJUWKAE9174-35-86 08:20:00 Test Item Value Reference Range Interpretation Comments Eosinophils # (test code 0.2 See_Comment [A utomated message] The = Eosinophils #) system Ga[employer] h generated this result tra nsmitted reference range : <=0.5. The reference r yared was not used to int erpret this result as normal/abnormal . [facility] HospitalUvkwjyiLUVARFEZLD6333-67-42 14:52:00 Test Item Value Reference Range Interpretation Comments WBC (test code = WBC) 6.6 3.7-10.4 [facility] HospitalDsqecfdFQBLOQVHEV2666-64-09 14:52:00 Test Item Value Reference Range Interpretation Comments RBC (test code = RBC) 2.76 4.70-6.10 [place] 861290-10-02 14:52:00 Test Item Value Reference Range Interpretation Comments Hgb (test code = Hgb) 8.1 14.0-18.0 [place] [address]-10-02 14:52:00 Test Item Value Reference Range Interpretation Comments Hct (test code = Hct) 23.3 42.0-54.0 [place] 861290-10-02 14:52:00 Test Item Value Reference Range Interpretation Comments MCV (test code = MCV) 84.2 80.0-94.0 [place] [address]-10-02 14:52:00 Test Item Value Reference Range Interpretation Comments MCH (test code = MCH) 29.3 pg 27.0-31.0 [facility] HospitalKmuqvirOGQFIVHNTE0801-06-60 14:52:00 Test Item Value Reference Range Interpretation Comments MCHC (test code = MCHC) 34.8 32.0-36.0 [facility] HospitalLnlbpjwKDJNPMPZIZ7117-96-53 14:52:00 Test Item Value Reference Range Interpretation Comments RDW (test code = RDW) 13.7 11.5-14.5 [place] 861290-10-02 14:52:00 Test Item Value Reference Range Interpretation Comments Platelet (test code = Platelet) 203 133-450 [facility] HospitalNcdnszfIDHAXEUKCF6181-34-71 14:52:00 Test Item Value Reference Range Interpretation Comments MPV (test code = MPV) 6.6 7.4-10.4 [place] 861290-10-02 14:52:00 Test Item Value Reference Range Interpretation Comments RBC Morph (test code = Normal (07/10/20 9:52 RBC Morph) AM) [facility] HospitalElwpqdtIKPHLJDYRK3192-60-40 14:52:00 Test Item Value Reference Range Interpretation Comments Plt Morph (test code = Normal (07/10/20 9:52 Plt Morph) AM) [facility] HospitalJpvmeliQNIWMZNEHQ5587-83-26 14:52:00 Test Item Value Reference Range Interpretation Comments Segs (test code = Segs) 76.0 45.0-75.0 [facility] HospitalIsuwixcHYUOMPKSRF9013-25-49 14:52:00 Test Item Value Reference Range Interpretation Comments Lymphocytes (test code = Lymphocytes) 11.5 20.0-40.0 [place] 861290-10-02 14:52:00 Test Item Value Reference Range Interpretation Comments Monocytes (test code = Monocytes) 8.9 2.0-12.0 [facility] HospitalOehjwhrIKBFUHXHRC8274-65-33 14:52:00 Test Item Value Reference Range Interpretation Comments Eosinophils (test code = 3.1 See_Comment [A utomated message] The Eosinophils) system which ge nerated this result tra nsmitted reference range : <=4.0. The reference r yared was not used to int erpret this result as normal/abnormal . [facility] HospitalKfabjmpDVMGLTQNRR9403-22-27 14:52:00 Test Item Value Reference Range Interpretation Comments Basophils (test code = 0.5 See_Comment [Aut omated message] The Basophils) system which ge nerated this result tra nsmitted reference range : <=1.0. The reference r yared was not used to int erpret this result as normal/abnormal . [facility] HospitalEodihnhCESDOLEYXW8701-61-17 14:52:00 Test Item Value Reference Range Interpretation Comments Neutrophils # (test code = Neutrophils 5.1 1.5-8.1 #) [facility] HospitalYxhjoyhTNYCZIASYX5916-07-30 14:52:00 Test Item Value Reference Range Interpretation Comments Lymphocytes # (test code = Lymphocytes 0.8 1.0-5.5 #) [place] 861290-10-02 14:52:00 Test Item Value Reference Range Interpretation Comments Monocytes # (test code 0.6 See_Comment [Aut omated message] The = Monocytes #) system which generated this result tra nsmitted reference range : <=0.8. The reference r yared was not used to int erpret this result as normal/abnormal . [facility] HospitalJqosoulGMWOPGBWJH2179-33-81 14:52:00 Test Item Value Reference Range Interpretation Comments Eosinophils # (test code 0.2 See_Comment [A utomated message] The = Eosinophils #) system whic h generated this result tra nsmitted reference range : <=0.5. The reference r yared was not used to int erpret this result as normal/abnormal . [place] 592960-10-01 14:49:00 Test Item Value Reference Range Interpretation Comments Total Protein (test code = Total 5.2 6.4-8.4 Protein) [place] [address]-10-01 14:49:00 Test Item Value Reference Range Interpretation Comments Albumin Lvl (test code = Albumin Lvl) 1.5 3.5-5.0 [place] 592960-10-01 14:49:00 Test Item Value Reference Range Interpretation Comments ALT (test code = ALT) 13 See_Comment [Auto mated message] The system which ge nerated this result transmit emerson reference range : <=65. The reference range was not used to interpr et this result as erinn l/abnormal. [place] 592960-10-01 14:49:00 Test Item Value Reference Range Interpretation Comments AST (test code = AST) 11 See_Comment [Auto mated message] The system which ge nerated this result transmit emerson reference range : <=37. The reference range was not used to interpr et this result as erinn l/abnormal. [place] 592960-10-01 14:49:00 Test Item Value Reference Range Interpretation Comments Alk Phos (test code = Alk Phos) 75 39-136 [place] 592960-10-01 14:49:00 Test Item Value Reference Range Interpretation Comments Bili Total (test code = Bili Total) 0.4 0.2-1.3 [place] [address]-10-01 14:49:00 Test Item Value Reference Range Interpretation Comments B/C Ratio (test code = B/C Ratio) 4 1 6-25 [place] [address]-10-01 14:49:00 Test Item Value Reference Range Interpretation Comments Globulin (test code = Globulin) 3.7 2.7-4.2 [place] 592960-10-01 14:49:00 Test Item Value Reference Range Interpretation Comments A/G Ratio (test code = A/G Ratio) 0.4 1 0.7-1.6 [facility] [id number] 14:49:00 Test Item Value Reference Range Interpretation Comments Phosphorus (test code = Phosphorus) 4.1 2.5-4.5 [facility] KingwoodEjbgkrwOQQQJQXRLT9336-39-74 09:57:00 Test Item Value Reference Range Interpretation Comments Vanco Lvl (test code = Vanco Lvl) 15.9 [facility] KingwoodScmmqltBEPRUXCRNN3908-41-84 18:59:00 Test Item Value Reference Range Interpretation Comments Vanco Lvl (test code = Vanco Lvl) 15.4 [facility]wood[facility]Gram Stain Aymzzf8211-03-35 15:00:00 Test Item Value Reference Range Interpretation Comments Gram Stain Report No Organisms Seen Few (test code = Gram WBC's Stain Report) [facility] Fluid/[id number] 15:00:00 Test Item Value Reference Range Interpretation Comments Culture: Aspirate/Body Fluid/Tissue No Growth (test code = Culture: Aspirate/Body Fluid/Tissue) [facility] St[facility] [id number] 15:00:00 Test Item Value Reference Range Interpretation Comments Gram Stain Report Many WBC's No Organisms (test code = Gram Seen Stain Report) [facility] Aspirate/Body Fluid/[id number] 15:00:00 Test Item Value Reference Range Interpretation Comments Culture: Aspirate/Body Fluid/Tissue No Growth (test code = Culture: Aspirate/Body Fluid/Tissue) [facility] KingwoodCorcept TherapeuticsGram Stain Tpqgrd6086-03-05 13:30:00 Test Item Value Reference Range Interpretation Comments Gram Stain Report No Organisms Seen Many (test code = Gram WBC's Stain Report) [facility]annCulture: Aspirate/Body Fluid/Bqfnsr1483-03-21 13:30:00 Test Item Value Reference Range Interpretation Comments Culture: Aspirate/Body Fluid/Tissue No Growth (test code = Culture: Aspirate/Body Fluid/Tissue) [facility] [id number] 11:40:00 Test Item Value Reference Range Interpretation Comments ABO/Rh (test code = ABO/Rh) O POS [facility] [id number] 11:40:00 Test Item Value Reference Range Interpretation Comments Antibody Scrn (test Negative (07/06/20 6:40 code = Antibody Scrn) AM) [facility]CMhannahCARDIAC [id number] 11:07:00 Test Item Value Reference Range Interpretation Comments Troponin-I (test code no gt See_Comment [Auto mated message] The = Troponin-I) system which g enerated this result transmit emerson reference range : <=0.40. The reference r yared was not used to interpr et this result as erinn l/abnormal. [facility] [id number] 11:07:00 Test Item Value Reference Range Interpretation Comments Magnesium Lvl (test code = Magnesium 1.8 1.8-2.4 Lvl) [facility] [id number] 11:07:00 Test Item Value Reference Range Interpretation Comments Phosphorus (test code = Phosphorus) 5.3 2.5-4.5 [facility] [id number] 11:07:00 Test Item Value Reference Range Interpretation Comments Lipase Lvl (test code = Lipase Lvl) 48 73-393 [facility] [id number] 11:07:00 Test Item Value Reference Range Interpretation Comments Total Protein (test code = Total 5.3 6.4-8.4 Protein) [facility] [id number] 11:07:00 Test Item Value Reference Range Interpretation Comments Albumin Lvl (test code = Albumin Lvl) 1.6 3.5-5.0 [facility] [id number] 11:07:00 Test Item Value Reference Range Interpretation Comments Globulin (test code = Globulin) 3.7 2.7-4.2 [facility] [id number] 11:07:00 Test Item Value Reference Range Interpretation Comments A/G Ratio (test code = A/G Ratio) 0.4 1 0.7-1.6 [facility] [id number] 11:07:00 Test Item Value Reference Range Interpretation Comments ALT (test code = ALT) 12 See_Comment [Auto mated message] The system which ge nerated this result transmit emerson reference range : <=65. The reference range was not used to interpr et this result as erinn l/abnormal. [place] 592960-09-28 11:07:00 Test Item Value Reference Range Interpretation Comments AST (test code = AST) 13 See_Comment [Auto mated message] The system which ge nerated this result transmit emerson reference range : <=37. The reference range was not used to interpr et this result as erinn l/abnormal. [place] 592960-09-28 11:07:00 Test Item Value Reference Range Interpretation Comments Alk Phos (test code = Alk Phos) 67 39-136 [place] 592960-09-28 11:07:00 Test Item Value Reference Range Interpretation Comments Bili Total (test code = Bili Total) 0.6 0.2-1.3 [place] [address]-09-28 11:07:00 Test Item Value Reference Range Interpretation Comments Bili Direct (test code no gt See_Comment [Aut omated message] The = Bili Direct) system which generated this result tra nsmitted reference range : <=0.3. The reference r yared was not used to int erpret this result as erinn l/abnormal. [place] 592960-09-28 11:07:00 Test Item Value Reference Range Interpretation Comments Bili Indirect Unable to See_Comment [Automated (test code = Bili Calculate message] T he system Indirect) which generated this result transmitted reference range : <=1.0. The reference range was not used to interpret this result as normal/abnormal . [place] 592960-09-28 11:07:00 Test Item Value Reference Range Interpretation Comments Lactic Acid Lvl (test code = Lactic 0.6 0.5-2.2 Acid Lvl) [place] [id number] 11:07:00 Test Item Value Reference Range Interpretation Comments PTT (test code = PTT) 40.6 s 22.9-35.8 [place] [address]-09-28 11:07:00 Test Item Value Reference Range Interpretation Comments PT (test code = PT) 14.0 s 12.0-14.7 [place] [address]-09-28 11:07:00 Test Item Value Reference Range Interpretation Comments INR (test code = INR) 1.08 1 0.85-1.17 [place] 592960-08-13 13:56:00 Test Item Value Reference Range Interpretation Comments Glucose Lvl (test code = Glucose Lvl) 97 70-99 [place] 592960-08-13 13:56:00 Test Item Value Reference Range Interpretation Comments BUN (test code = BUN) 41 7-22 [place] 592960-08-13 13:56:00 Test Item Value Reference Range Interpretation Comments Creatinine Lvl (test code = Creatinine 10.50 0.50-1.40 Lvl) [place] 592960-08-13 13:56:00 Test Item Value Reference Range Interpretation Comments Sodium Lvl (test code = Sodium Lvl) 133 135-145 [place] 592960-08-13 13:56:00 Test Item Value Reference Range Interpretation Comments Potassium Lvl (test code = Potassium 3.2 3.5-5.1 Lvl) [place] 592960-08-13 13:56:00 Test Item Value Reference Range Interpretation Comments Chloride Lvl (test code = Chloride Lvl) 94 95-109 [place] 592960-08-13 13:56:00 Test Item Value Reference Range Interpretation Comments CO2 (test code = CO2) 28 24-32 [place] 592960-08-13 13:56:00 Test Item Value Reference Range Interpretation Comments Calcium Lvl (test code = Calcium Lvl) 9.5 8.5-10.5 [facility]2020-08-13 13:56:00 Test Item Value Reference Range Interpretation Comments AGAP (test code = AGAP) 14.2 10.0-20.0 [facility]2020-08-13 13:56:00 Test Item Value Reference Range Interpretation Comments eGFR (test code = eGFR) 5 [place] 592960-08-13 13:56:00 Test Item Value Reference Range Interpretation Comments Total Protein (test code = Total 5.4 6.4-8.4 Protein) [place] 592960-08-13 13:56:00 Test Item Value Reference Range Interpretation Comments Albumin Lvl (test code = Albumin Lvl) 2.3 3.5-5.0 [place] 592960-08-13 13:56:00 Test Item Value Reference Range Interpretation Comments ALT (test code = ALT) 16 See_Comment [Auto mated message] The system which ge nerated this result transmit emerson reference range : <=65. The reference range was not used to interpr et this result as erinn l/abnormal. [place] 592960-08-13 13:56:00 Test Item Value Reference Range Interpretation Comments AST (test code = AST) 26 See_Comment [Auto mated message] The system which ge nerated this result transmit emerson reference range : <=37. The reference range was not used to interpr et this result as erinn l/abnormal. [place] 592960-08-13 13:56:00 Test Item Value Reference Range Interpretation Comments Alk Phos (test code = Alk Phos) 82 39-136 [place] 592960-08-13 13:56:00 Test Item Value Reference Range Interpretation Comments Bili Total (test code = Bili Total) 0.4 0.2-1.3 [place] [address]-08-13 13:56:00 Test Item Value Reference Range Interpretation Comments Bili Direct (test code 0.1 See_Comment [Aut omated message] The = Bili Direct) system which generated this result tra nsmitted reference range : <=0.3. The reference r yared was not used to int erpret this result as erinn l/abnormal. [place] 592960-08-13 13:56:00 Test Item Value Reference Range Interpretation Comments Bili Indirect (test 0.3 See_Comment [Automa emerson message] The code = Bili Indirect) system which generated this result tra nsmitted reference range : <=1.0. The reference r yared was not used to int erpret this result as normal/abnormal . [place] 592960-08-13 13:56:00 Test Item Value Reference Range Interpretation Comments Globulin (test code = Globulin) 3.1 2.7-4.2 [place] [address]-08-13 13:56:00 Test Item Value Reference Range Interpretation Comments A/G Ratio (test code = A/G Ratio) 0.7 1 0.7-1.6 [place] [address]-08-13 13:56:00 Test Item Value Reference Range Interpretation Comments Lipase Lvl (test code = Lipase Lvl) 41 73-393 [facility]MklpjncZRFJHZGRZE5775-85-35 13:56:00 Test Item Value Reference Range Interpretation Comments WBC (test code = WBC) 5.3 3.7-10.4 [facility] HospitalWcxohegENUSSCKYYC2033-84-22 13:56:00 Test Item Value Reference Range Interpretation Comments RBC (test code = RBC) 2.56 4.70-6.10 [facility] HospitalRymobnqPWBRKTQJFD4499-78-25 13:56:00 Test Item Value Reference Range Interpretation Comments Hgb (test code = Hgb) 7.6 14.0-18.0 [facility] HospitalKywculfWFUFTYUTST0096-90-43 13:56:00 Test Item Value Reference Range Interpretation Comments Hct (test code = Hct) 21.8 42.0-54.0 [facility] HospitalSnsnzxdGBEWYNCSKR5577-09-58 13:56:00 Test Item Value Reference Range Interpretation Comments MCV (test code = MCV) 85.2 80.0-94.0 [facility] HospitalNctlgriOQSAMEBAGQ4781-81-05 13:56:00 Test Item Value Reference Range Interpretation Comments MCH (test code = MCH) 29.6 pg 27.0-31.0 [facility] HospitalRkymkinKTCMXIAWGA8960-12-59 13:56:00 Test Item Value Reference Range Interpretation Comments MCHC (test code = MCHC) 34.8 32.0-36.0 [facility] HospitalDyzzgkwCKMFBJMDOS7161-46-48 13:56:00 Test Item Value Reference Range Interpretation Comments RDW (test code = RDW) 13.9 11.5-14.5 [facility] HospitalMkurtusMPHRYCTIKJ4153-59-67 13:56:00 Test Item Value Reference Range Interpretation Comments Platelet (test code = Platelet) 170 133-450 [facility] HospitalZktagbcOGMLLLNDCC1552-41-60 13:56:00 Test Item Value Reference Range Interpretation Comments MPV (test code = MPV) 7.1 7.4-10.4 [facility] HospitalOiyfzroKPJEKHXINZ3884-16-78 13:56:00 Test Item Value Reference Range Interpretation Comments Segs (test code = Segs) 67.4 45.0-75.0 [place] [address]-08-13 13:56:00 Test Item Value Reference Range Interpretation Comments Lymphocytes (test code = Lymphocytes) 15.2 20.0-40.0 [facility] HospitalKvarurhIIFQKIEESB4119-80-66 13:56:00 Test Item Value Reference Range Interpretation Comments Monocytes (test code = Monocytes) 8.6 2.0-12.0 [facility] HospitalTiqsdcfWNTZQTFBCU4003-08-82 13:56:00 Test Item Value Reference Range Interpretation Comments Eosinophils (test code = 7.8 See_Comment [A utomated message] The Eosinophils) system which ge nerated this result tra nsmitted reference range : <=4.0. The reference r yared was not used to int erpret this result as normal/abnormal . [facility] HospitalLccxjkwDRGEGLDMPX3686-28-42 13:56:00 Test Item Value Reference Range Interpretation Comments Basophils (test code = 1.0 See_Comment [Aut omated message] The Basophils) system which ge nerated this result tra nsmitted reference range : <=1.0. The reference r yared was not used to int erpret this result as normal/abnormal . [facility] HospitalWkxxmohXGLTGNTUJP7341-77-26 13:56:00 Test Item Value Reference Range Interpretation Comments Neutrophils # (test code = Neutrophils 3.6 1.5-8.1 #) [facility] HospitalMlmptskOIOVKHNNGW1047-67-68 13:56:00 Test Item Value Reference Range Interpretation Comments Lymphocytes # (test code = Lymphocytes 0.8 1.0-5.5 #) [facility] HospitalFaodyzfSZAWMMLAFX2809-60-21 13:56:00 Test Item Value Reference Range Interpretation Comments Monocytes # (test code 0.5 See_Comment [Aut omated message] The = Monocytes #) system which generated this result tra nsmitted reference range : <=0.8. The reference r yared was not used to int erpret this result as normal/abnormal . [facility] HospitalVqnzkpqWAMQWNBVUP0214-34-21 13:56:00 Test Item Value Reference Range Interpretation Comments Eosinophils # (test code 0.4 See_Comment [A utomated message] The = Eosinophils #) system whic h generated this result tra nsmitted reference range : <=0.5. The reference r yared was not used to int erpret this result as normal/abnormal . [facility] HospitalIsdkpwzOAMBBKMBWB6521-89-85 13:56:00 Test Item Value Reference Range Interpretation Comments Basophils # (test code 0.1 See_Comment [Aut omated message] The = Basophils #) system which generated this result tra nsmitted reference range : <=0.2. The reference r yared was not used to int erpret this result as normal/abnormal . [employer] [id number] 06:28:00 Test Item Value Reference Range Interpretation Comments ABO/Rh (test code = ABO/Rh) O POS [facility] [employer] [id number] 06:28:00 Test Item Value Reference Range Interpretation Comments Antibody Scrn (test Negative (03/23/20 1:28 code = Antibody Scrn) AM) [employer] [id number] 06:23:00 Test Item Value Reference Range Interpretation Comments RBC product (test code Product available = RBC product) 2(03/23/20 1:23 AM) [email or web address] 06:08:00 Test Item Value Reference Range Interpretation Comments RBC BF (test code = RBC BF) 914162 [email or web address] 06:08:00 Test Item Value Reference Range Interpretation Comments Nucleated Cells BF (test code = 1316 Nucleated Cells BF) [email or web address] 06:08:00 Test Item Value Reference Range Interpretation Comments Neutrophils BF (test code = Neutrophils 37 BF) [email or web address] 06:08:00 Test Item Value Reference Range Interpretation Comments Lymph BF (test code = Lymph BF) 4 [email or web address] 06:08:00 Test Item Value Reference Range Interpretation Comments Macrophage BF (test code = Macrophage 54 BF) [email or web address] 06:08:00 Test Item Value Reference Range Interpretation Comments Eos BF (test code = Eos BF) 3 [email or web address] 06:08:00 Test Item Value Reference Range Interpretation Comments Meso BF (test code = Meso BF) 2 [email or web address] 06:08:00 Test Item Value Reference Range Interpretation Comments Clarity BF (test code = Bloody *ABN*(03/23/20 Clarity BF) 1:08 AM) [email or web address] 06:08:00 Test Item Value Reference Range Interpretation Comments Color BF (test code = Red *ABN*(03/23/20 1:08 Color BF) AM) [email or web address] 06:08:00 Test Item Value Reference Range Interpretation Comments Supernat BF (test code = Yellow *ABN*(03/23/20 Supernat BF) 1:08 AM) [facility] [id number] 06:08:00 Test Item Value Reference Range Interpretation Comments CellCnt BF Type (test Periton (03/23/20 1:08 code = CellCnt BF Type) AM) [facility]CHEM [id number] 06:08:00 Test Item Value Reference Range Interpretation Comments Glucose Lvl (test code = Glucose Lvl) 98 70-99 [facility] [id number] 06:08:00 Test Item Value Reference Range Interpretation Comments BUN (test code = BUN) 81 7-22 [facility] [id number] 06:08:00 Test Item Value Reference Range Interpretation Comments Creatinine Lvl (test code = Creatinine 14.40 0.50-1.40 Lvl) [facility] [id number] 06:08:00 Test Item Value Reference Range Interpretation Comments Sodium Lvl (test code = Sodium Lvl) 129 135-145 [facility] [id number] 06:08:00 Test Item Value Reference Range Interpretation Comments Potassium Lvl (test code = Potassium 4.8 3.5-5.1 Lvl) [facility] [id number] 06:08:00 Test Item Value Reference Range Interpretation Comments Chloride Lvl (test code = Chloride Lvl) 90 95-109 [facility] [id number] 06:08:00 Test Item Value Reference Range Interpretation Comments CO2 (test code = CO2) 27 24-32 [facility] [id number] 06:08:00 Test Item Value Reference Range Interpretation Comments Calcium Lvl (test code = Calcium Lvl) 8.7 8.5-10.5 [facility] [id number] 06:08:00 Test Item Value Reference Range Interpretation Comments Total Protein (test code = Total 5.7 6.4-8.4 Protein) [facility] [id number] 06:08:00 Test Item Value Reference Range Interpretation Comments Albumin Lvl (test code = Albumin Lvl) 2.5 3.5-5.0 [facility] [id number] 06:08:00 Test Item Value Reference Range Interpretation Comments ALT (test code = ALT) 32 See_Comment [Auto mated message] The system which ge nerated this result transmit emerson reference range : <=65. The reference range was not used to interpr et this result as erinn l/abnormal. [facility] [id number] 06:08:00 Test Item Value Reference Range Interpretation Comments AST (test code = AST) 36 See_Comment [Auto mated message] The system which ge nerated this result transmit emerson reference range : <=37. The reference range was not used to interpr et this result as erinn l/abnormal. [facility] [id number] 06:08:00 Test Item Value Reference Range Interpretation Comments Alk Phos (test code = Alk Phos) 110 39-136 [facility] [id number] 06:08:00 Test Item Value Reference Range Interpretation Comments Bili Total (test code = Bili Total) 0.5 0.2-1.3 [facility] [id number] 06:08:00 Test Item Value Reference Range Interpretation Comments AGAP (test code = AGAP) 16.8 10.0-20.0 [facility] [id number] 06:08:00 Test Item Value Reference Range Interpretation Comments B/C Ratio (test code = B/C Ratio) 6 1 6-25 [facility] [id number] 06:08:00 Test Item Value Reference Range Interpretation Comments Globulin (test code = Globulin) 3.2 2.7-4.2 [facility] [id number] 06:08:00 Test Item Value Reference Range Interpretation Comments A/G Ratio (test code = A/G Ratio) 0.8 1 0.7-1.6 [facility] [id number] 06:08:00 Test Item Value Reference Range Interpretation Comments eGFR (test code = eGFR) 3 [facility] [id number] 06:08:00 Test Item Value Reference Range Interpretation Comments Lactic Acid Lvl (test code = Lactic 0.6 0.5-2.2 Acid Lvl) [facility]woodEhjjuwhYPYNFAKYDB9453-47-43 06:08:00 Test Item Value Reference Range Interpretation Comments WBC (test code = WBC) 11.5 3.7-10.4 [facility] KingwoodGitogqlXIRUDNKACA9906-42-64 06:08:00 Test Item Value Reference Range Interpretation Comments RBC (test code = RBC) 2.12 4.70-6.10 [facility]XwgowbpTKMNWKXUUT1036-77-58 06:08:00 Test Item Value Reference Range Interpretation Comments Hgb (test code = Hgb) 6.1 14.0-18.0 [facility] HospitalMumxpyyKWNHBXYVIT9128-72-39 06:08:00 Test Item Value Reference Range Interpretation Comments Hct (test code = Hct) 18.4 42.0-54.0 [facility] HospitalZeezqamSNVPIYMSHH1132-21-56 06:08:00 Test Item Value Reference Range Interpretation Comments MCV (test code = MCV) 86.5 80.0-94.0 [facility] HospitalZqnmsqhPECTSJSBEQ1317-08-36 06:08:00 Test Item Value Reference Range Interpretation Comments MCH (test code = MCH) 28.6 pg 27.0-31.0 [facility] HospitalUmyotunLVCVDYOHWF9900-90-31 06:08:00 Test Item Value Reference Range Interpretation Comments MCHC (test code = MCHC) 33.1 32.0-36.0 [facility] HospitalEhfmhhzLBOWANYXBM8959-07-65 06:08:00 Test Item Value Reference Range Interpretation Comments RDW (test code = RDW) 15.9 11.5-14.5 [facility] HospitalNcdtumsEOWZQKGDDI1505-70-33 06:08:00 Test Item Value Reference Range Interpretation Comments Platelet (test code = Platelet) 316 133-450 [facility] HospitalGbltlgpXJIDSNKMDR9459-29-79 06:08:00 Test Item Value Reference Range Interpretation Comments MPV (test code = MPV) 6.8 7.4-10.4 [facility] HospitalDzooraiBGSHYLMJTE5845-03-06 06:08:00 Test Item Value Reference Range Interpretation Comments PT (test code = PT) 13.9 s 12.0-14.7 [facility] HospitalXuciykxPISDGKRRSL6739-84-67 06:08:00 Test Item Value Reference Range Interpretation Comments INR (test code = INR) 1.07 1 0.85-1.17 [facility] HospitalVataevqHGBTNULMNN1431-59-98 06:08:00 Test Item Value Reference Range Interpretation Comments RBC Morph (test code = Normal (03/23/20 1:08 RBC Morph) AM) [facility] HospitalTjqetbiBZCBYMCJVV5058-06-46 06:08:00 Test Item Value Reference Range Interpretation Comments Plt Morph (test code = Normal (03/23/20 1:08 Plt Morph) AM) [facility] HospitalJurnwfoJNEGTQTTTI6196-66-42 06:08:00 Test Item Value Reference Range Interpretation Comments Segs (test code = Segs) 80.9 45.0-75.0 [facility] HospitalAzyjquvFZGUFLXRZU3927-52-89 06:08:00 Test Item Value Reference Range Interpretation Comments Lymphocytes (test code = Lymphocytes) 9.1 20.0-40.0 [facility] HospitalWpdgjqiJXYFCLMWWM8751-94-34 06:08:00 Test Item Value Reference Range Interpretation Comments Monocytes (test code = Monocytes) 7.3 2.0-12.0 [place] [id number] 06:08:00 Test Item Value Reference Range Interpretation Comments Eosinophils (test code = 2.0 See_Comment [A utomated message] The Eosinophils) system which ge nerated this result tra nsmitted reference range : <=4.0. The reference r yared was not used to int erpret this result as normal/abnormal . [facility] HospitalOhlrtjcQUVPIYOXQG7959-65-45 06:08:00 Test Item Value Reference Range Interpretation Comments Basophils (test code = 0.7 See_Comment [Aut omated message] The Basophils) system which ge nerated this result tra nsmitted reference range : <=1.0. The reference r yared was not used to int erpret this result as normal/abnormal . [facility] HospitalKnocflnSYHINPFIPR0192-04-69 06:08:00 Test Item Value Reference Range Interpretation Comments Neutrophils # (test code = Neutrophils 9.3 1.5-8.1 #) [facility] HospitalMkrgjhcEVWLUHDKFX3229-41-23 06:08:00 Test Item Value Reference Range Interpretation Comments Lymphocytes # (test code = Lymphocytes 1.0 1.0-5.5 #) [place] [id number] 06:08:00 Test Item Value Reference Range Interpretation Comments Monocytes # (test code 0.8 See_Comment [Aut omated message] The = Monocytes #) system which generated this result tra nsmitted reference range : <=0.8. The reference r yared was not used to int erpret this result as normal/abnormal . [facility] HospitalRrdthpgURQFBDXKEQ3920-38-38 06:08:00 Test Item Value Reference Range Interpretation Comments Eosinophils # (test code 0.2 See_Comment [A utomated message] The = Eosinophils #) system whic h generated this result tra nsmitted reference range : <=0.5. The reference r yared was not used to int erpret this result as normal/abnormal . [facility]reBOCQCVNFTY4796-22-65 06:08:00 Test Item Value Reference Range Interpretation Comments Basophils # (test code 0.1 See_Comment [Aut omated message] The = Basophils #) system which generated this result tra nsmitted reference range : <=0.2. The reference r ayred was not used to int erpret this result as normal/abnormal . [facility] HospitalAmlcocnUUTPQBTWAI2189-68-78 06:08:00 Test Item Value Reference Range Interpretation Comments Anisocyte (test code = 2+ *ABN*(03/23/20 Anisocyte) 1:08 AM) [place] [id number] 06:08:00 Test Item Value Reference Range Interpretation Comments Macrocyte (test code = 1+ *ABN*(03/23/20 Macrocyte) 1:08 AM) [facility] HospitalNthdmgpSDLRSMLJDD9612-31-85 06:08:00 Test Item Value Reference Range Interpretation Comments Microcyte (test code = 1+ *ABN*(03/23/20 Microcyte) 1:08 AM) [place] [id number] 06:08:00 Test Item Value Reference Range Interpretation Comments Spherocyte (test code = Rare *ABN*(03/23/20 Spherocyte) 1:08 AM) [facility] [id number] 21:27:00 Test Item Value Reference Range Interpretation Comments Glucose Lvl (test code = Glucose Lvl) 85 70-99 [facility] [id number] 21:27:00 Test Item Value Reference Range Interpretation Comments BUN (test code = BUN) 58 7-22 [facility] [id number] 21:27:00 Test Item Value Reference Range Interpretation Comments Creatinine Lvl (test code = Creatinine 12.00 0.50-1.40 Lvl) [facility] [id number] 21:27:00 Test Item Value Reference Range Interpretation Comments Sodium Lvl (test code = Sodium Lvl) 129 135-145 [facility] [id number] 21:27:00 Test Item Value Reference Range Interpretation Comments Potassium Lvl (test code = Potassium 4.2 3.5-5.1 Lvl) [facility] [id number] 21:27:00 Test Item Value Reference Range Interpretation Comments Chloride Lvl (test code = Chloride Lvl) 92 95-109 [facility] [id number] 21:27:00 Test Item Value Reference Range Interpretation Comments CO2 (test code = CO2) 26 24-32 [facility] [id number] 21:27:00 Test Item Value Reference Range Interpretation Comments Calcium Lvl (test code = Calcium Lvl) 8.3 8.5-10.5 [facility] [id number] 21:27:00 Test Item Value Reference Range Interpretation Comments Total Protein (test code = Total 5.5 6.4-8.4 Protein) [facility] [id number] 21:27:00 Test Item Value Reference Range Interpretation Comments Albumin Lvl (test code = Albumin Lvl) 2.4 3.5-5.0 [facility] [id number] 21:27:00 Test Item Value Reference Range Interpretation Comments ALT (test code = ALT) 18 See_Comment [Auto mated message] The system which ge nerated this result transmit emerson reference range : <=65. The reference range was not used to interpr et this result as erinn l/abnormal. [facility] [id number] 21:27:00 Test Item Value Reference Range Interpretation Comments AST (test code = AST) 20 See_Comment [Auto mated message] The system which ge nerated this result transmit emerson reference range : <=37. The reference range was not used to interpr et this result as erinn l/abnormal. [facility] [id number] 21:27:00 Test Item Value Reference Range Interpretation Comments Alk Phos (test code = Alk Phos) 76 39-136 [facility] [id number] 21:27:00 Test Item Value Reference Range Interpretation Comments Bili Total (test code = Bili Total) 0.3 0.2-1.3 [facility] [id number] 21:27:00 Test Item Value Reference Range Interpretation Comments AGAP (test code = AGAP) 15.2 10.0-20.0 [facility] [id number] 21:27:00 Test Item Value Reference Range Interpretation Comments B/C Ratio (test code = B/C Ratio) 5 1 6-25 [facility] [id number] 21:27:00 Test Item Value Reference Range Interpretation Comments Globulin (test code = Globulin) 3.1 2.7-4.2 [facility] [id number] 21:27:00 Test Item Value Reference Range Interpretation Comments A/G Ratio (test code = A/G Ratio) 0.8 1 0.7-1.6 [facility] [id number] 21:27:00 Test Item Value Reference Range Interpretation Comments eGFR (test code = eGFR) 4 [facility] HospitalBnneehpFNKSSCQDXR0477-72-64 21:27:00 Test Item Value Reference Range Interpretation Comments WBC (test code = WBC) 8.7 3.7-10.4 [facility] HospitalKhitrzgVUZUGJQYWG7927-53-89 21:27:00 Test Item Value Reference Range Interpretation Comments RBC (test code = RBC) 2.94 4.70-6.10 [id number] 21:27:00 Test Item Value Reference Range Interpretation Comments Hgb (test code = Hgb) 8.4 14.0-18.0 [facility] HospitalWgvzcmqGYYWNXKXER6902-09-70 21:27:00 Test Item Value Reference Range Interpretation Comments Hct (test code = Hct) 25.0 42.0-54.0 [facility] HospitalVnaumtdOQAIPFGTXU5645-87-97 21:27:00 Test Item Value Reference Range Interpretation Comments MCV (test code = MCV) 84.9 80.0-94.0 [facility] HospitalGaqsfdkSORHJZUGME4024-27-49 21:27:00 Test Item Value Reference Range Interpretation Comments MCH (test code = MCH) 28.7 pg 27.0-31.0 [facility] H[id number] 21:27:00 Test Item Value Reference Range Interpretation Comments MCHC (test code = MCHC) 33.8 32.0-36.0 [facility] Hos[id number] 21:27:00 Test Item Value Reference Range Interpretation Comments RDW (test code = RDW) 14.4 11.5-14.5 [facility] HospitalDgkegteXZQYQFGHZL0054-58-36 21:27:00 Test Item Value Reference Range Interpretation Comments Platelet (test code = Platelet) 150 133-450 [facility] HospitalUtepeiwMWZHYGHBOW6870-95-79 21:27:00 Test Item Value Reference Range Interpretation Comments MPV (test code = MPV) 7.6 7.4-10.4 [facility] HospitalMztoywsKEBZAJCWBT7722-50-35 21:27:00 Test Item Value Reference Range Interpretation Comments Neutrophils # (test code = Neutrophils 7.7 1.5-8.1 #) [facility] HospitalUfdkpfgPPNCLANOSS9366-68-14 21:27:00 Test Item Value Reference Range Interpretation Comments Lymphocytes # (test code = Lymphocytes 0.4 1.0-5.5 #) [facility] HospitalOdzljpyQZHURGAIQB1876-13-77 21:27:00 Test Item Value Reference Range Interpretation Comments Monocytes # (test code 0.3 See_Comment [Aut omated message] The = Monocytes #) system which generated this result tra nsmitted reference range : <=0.8. The reference r yared was not used to int erpret this result as normal/abnormal . [facility] HospitalYmvokjtJILMYTPUWO9643-74-26 21:27:00 Test Item Value Reference Range Interpretation Comments Eosinophils # (test code 0.2 See_Comment [A utomated message] The = Eosinophils #) system whic h generated this result tra nsmitted reference range : <=0.5. The reference r yared was not used to int erpret this result as normal/abnormal . [facility] HospitalBjldktnWWJHOZIBEI2319-86-00 21:27:00 Test Item Value Reference Range Interpretation Comments Segs (test code = Segs) 86.0 45.0-75.0 [facility] HospitalXamzjpbUDFJTKOGQK1324-23-38 21:27:00 Test Item Value Reference Range Interpretation Comments Bands (test code = 3.0 See_Comment [Automat ed message] The Bands) system which ge nerated this result transmit emerson reference range : <=11.0. The reference r yared was not used to interpr et this result as erinn l/abnormal. [facility] HospitalTqpxldmDYHUZCZOQD4787-05-74 21:27:00 Test Item Value Reference Range Interpretation Comments Lymphocytes (test code = Lymphocytes) 3.0 20.0-40.0 [place] [id number] 21:27:00 Test Item Value Reference Range Interpretation Comments Monocytes (test code = Monocytes) 4.0 2.0-12.0 [facility] HospitalX[id number] 21:27:00 Test Item Value Reference Range Interpretation Comments Eosinophils (test code = 2.0 See_Comment [A utomated message] The Eosinophils) system which ge nerated this result tra nsmitted reference range : <=4.0. The reference r yared was not used to int erpret this result as normal/abnormal . [facility] HospitalZlyqsjsGGINPKVMHQ6623-09-81 21:27:00 Test Item Value Reference Range Interpretation Comments Atypical Lymphs (test code = Atypical 2.0 Lymphs) [facility] HospitalUqskzooMIGAFDSVRA6571-33-80 21:27:00 Test Item Value Reference Range Interpretation Comments RBC Morph (test code = Normal (02/03/20 4:27 RBC Morph) PM) [facility] HospitalVynelniOWIAUKHUKP6047-57-48 21:27:00 Test Item Value Reference Range Interpretation Comments Plt Morph (test code = Normal (02/03/20 4:27 Plt Morph) PM) [facility] H[id number] 21:27:00 Test Item Value Reference Range Interpretation Comments Anisocyte (test code = 1+ *ABN*(02/03/20 Anisocyte) 4:27 PM) [facility] HospitalRrwwbjpLIPSDQLXKH8060-64-18 21:14:00 Test Item Value Reference Range Interpretation Comments Coronavirus (COVID-19) Not Detected (02/03/20 JUVENCIO (test code = 4:14 PM) Coronavirus (COVID-19) JUVENCIO) [facility]2020-01-27 18:30:00 Test Item Value Reference Range Interpretation Comments Color BF (test code = Colorless (11/04/19 12:30 Color BF) PM) [facility]2020-01-27 18:30:00 Test Item Value Reference Range Interpretation Comments Clarity BF (test code = Clear (11/04/19 12:30 Clarity BF) PM) [facility]2020-01-27 18:30:00 Test Item Value Reference Range Interpretation Comments Nucleated Cells BF (test code = 11 Nucleated Cells BF) [facility]2020-01-27 18:30:00 Test Item Value Reference Range Interpretation Comments RBC BF (test code = RBC BF) 11 [facility]2020-01-27 18:30:00 Test Item Value Reference Range Interpretation Comments Neutrophils BF (test code = Neutrophils 11 BF) [facility] [id number] 18:30:00 Test Item Value Reference Range Interpretation Comments Lymph BF (test code = Lymph BF) 56 [facility]2020-01-27 18:30:00 Test Item Value Reference Range Interpretation Comments Macrophage BF (test code = Macrophage 33 BF) [facility]2020-01-27 18:30:00 Test Item Value Reference Range Interpretation Comments CellCnt BF Type (test Periton (11/04/19 12:30 code = CellCnt BF Type) PM) [facility] HospitalGram Stain [id number] 18:30:00 Test Item Value Reference Range Interpretation Comments Gram Stain Report Rare WBC's No Organisms (test code = Gram Seen Stain Report) [facility] HospitalCulture: Aspirate/Body Fluid/Vcnnzx9827-06-07 18:30:00 Test Item Value Reference Range Interpretation Comments Culture: 48 Hour Report - No Aspirate/Body Growth, Holding Fluid/Tissue (test code = Culture: Aspirate/Body Fluid/Tissue) [facility] [id number] 18:00:00 Test Item Value Reference Range Interpretation Comments Glucose Lvl (test code = Glucose Lvl) 125 70-99 [facility] [id number] 18:00:00 Test Item Value Reference Range Interpretation Comments BUN (test code = BUN) 40 7-22 [facility] [id number] 18:00:00 Test Item Value Reference Range Interpretation Comments Creatinine Lvl (test code = Creatinine 10.60 0.50-1.40 Lvl) [facility] [id number] 18:00:00 Test Item Value Reference Range Interpretation Comments Sodium Lvl (test code = Sodium Lvl) 141 135-145 [facility] [id number] 18:00:00 Test Item Value Reference Range Interpretation Comments Potassium Lvl (test code = Potassium 3.8 3.5-5.1 Lvl) [facility] [id number] 18:00:00 Test Item Value Reference Range Interpretation Comments Chloride Lvl (test code = Chloride Lvl) 101 95-109 [facility] [id number] 18:00:00 Test Item Value Reference Range Interpretation Comments CO2 (test code = CO2) 32 24-32 [facility]2020-01-27 18:00:00 Test Item Value Reference Range Interpretation Comments Calcium Lvl (test code = Calcium Lvl) 9.3 8.5-10.5 [facility]2020-01-27 18:00:00 Test Item Value Reference Range Interpretation Comments AGAP (test code = AGAP) 11.8 10.0-20.0 [facility]2020-01-27 18:00:00 Test Item Value Reference Range Interpretation Comments eGFR (test code = eGFR) 5 [facility] Hospit[id number] 18:08:00 Test Item Value Reference Range Interpretation Comments Vanco Lvl (test code = Vanco Lvl) 10.2 [facility]2020-01-26 13:45:00 Test Item Value Reference Range Interpretation Comments Glucose Lvl (test code = Glucose Lvl) 163 70-99 [facility]2020-01-26 13:45:00 Test Item Value Reference Range Interpretation Comments BUN (test code = BUN) 35 7-22 [facility]2020-01-26 13:45:00 Test Item Value Reference Range Interpretation Comments Creatinine Lvl (test code = Creatinine 9.71 0.50-1.40 Lvl) [facility]2020-01-26 13:45:00 Test Item Value Reference Range Interpretation Comments Sodium Lvl (test code = Sodium Lvl) 139 135-145 [facility]2020-01-26 13:45:00 Test Item Value Reference Range Interpretation Comments Potassium Lvl (test code = Potassium 3.4 3.5-5.1 Lvl) [facility]2020-01-26 13:45:00 Test Item Value Reference Range Interpretation Comments Chloride Lvl (test code = Chloride Lvl) 102 95-109 [facility]2020-01-26 13:45:00 Test Item Value Reference Range Interpretation Comments CO2 (test code = CO2) 29 24-32 [facility]2020-01-26 13:45:00 Test Item Value Reference Range Interpretation Comments Calcium Lvl (test code = Calcium Lvl) 9.0 8.5-10.5 [facility]2020-01-26 13:45:00 Test Item Value Reference Range Interpretation Comments AGAP (test code = AGAP) 11.4 10.0-20.0 [facility]2020-01-26 13:45:00 Test Item Value Reference Range Interpretation Comments eGFR (test code = eGFR) 5 [facility] HospitalWaohisjWYLRHUWJLO5392-93-67 13:45:00 Test Item Value Reference Range Interpretation Comments WBC (test code = WBC) 4.3 3.7-10.4 [facility] HospitalSgvvzifUIUUTQPPGM7052-28-62 13:45:00 Test Item Value Reference Range Interpretation Comments RBC (test code = RBC) 3.00 4.70-6.10 [facility] HospitalZmtzibvYPVGNCTRFO7039-03-55 13:45:00 Test Item Value Reference Range Interpretation Comments Hgb (test code = Hgb) 8.4 14.0-18.0 [facility] HospitalRajbfieXMHWPGIHCV6619-42-02 13:45:00 Test Item Value Reference Range Interpretation Comments Hct (test code = Hct) 25.3 42.0-54.0 [facility] HospitalJzrfpeuMDSWLHDITC9823-44-16 13:45:00 Test Item Value Reference Range Interpretation Comments MCV (test code = MCV) 84.3 80.0-94.0 [facility] HospitalJhikyhbWOIBVDKRCZ8040-99-71 13:45:00 Test Item Value Reference Range Interpretation Comments MCH (test code = MCH) 28.2 pg 27.0-31.0 [facility] HospitalQxjigifLBKHXVGBMT9299-56-23 13:45:00 Test Item Value Reference Range Interpretation Comments MCHC (test code = MCHC) 33.4 32.0-36.0 [facility] HospitalPmaszbsGRGDXRVCPJ0688-31-36 13:45:00 Test Item Value Reference Range Interpretation Comments RDW (test code = RDW) 14.5 11.5-14.5 [facility] HospitalIspkhcvNZMQBUCBQS9768-91-24 13:45:00 Test Item Value Reference Range Interpretation Comments Platelet (test code = Platelet) 217 133-450 [facility] HospitalJgwvrjrSBJGEDRWTB1970-42-12 13:45:00 Test Item Value Reference Range Interpretation Comments MPV (test code = MPV) 6.5 7.4-10.4 [place] [id number] 13:45:00 Test Item Value Reference Range Interpretation Comments Segs (test code = Segs) 66.4 45.0-75.0 [facility] HospitalJudehnmBYIUUSOMLV4002-06-02 13:45:00 Test Item Value Reference Range Interpretation Comments Lymphocytes (test code = Lymphocytes) 19.6 20.0-40.0 [facility] HospitalDmkmfscIYAXPMMHJM1004-92-29 13:45:00 Test Item Value Reference Range Interpretation Comments Monocytes (test code = Monocytes) 9.3 2.0-12.0 [facility] HospitalIrdacklGXOSFWUJTP4415-28-36 13:45:00 Test Item Value Reference Range Interpretation Comments Eosinophils (test code = 3.7 See_Comment [A utomated message] The Eosinophils) system which ge nerated this result tra nsmitted reference range : <=4.0. The reference r yared was not used to int erpret this result as normal/abnormal . [facility] HospitalKkcvazmGCWEARSQLK8664-14-36 13:45:00 Test Item Value Reference Range Interpretation Comments Basophils (test code = 1.0 See_Comment [Aut omated message] The Basophils) system which ge nerated this result tra nsmitted reference range : <=1.0. The reference r yared was not used to int erpret this result as normal/abnormal . [facility] HospitalMronoztUWECZOBEYW9390-51-61 13:45:00 Test Item Value Reference Range Interpretation Comments Neutrophils # (test code = Neutrophils 2.8 1.5-8.1 #) [facility] HospitalOlwcjlrPTZSJMLKZL6333-12-11 13:45:00 Test Item Value Reference Range Interpretation Comments Lymphocytes # (test code = Lymphocytes 0.8 1.0-5.5 #) [facility] HospitalOhuynrzSNOPRRGZSG7327-33-07 13:45:00 Test Item Value Reference Range Interpretation Comments Monocytes # (test code 0.4 See_Comment [Aut omated message] The = Monocytes #) system which generated this result tra nsmitted reference range : <=0.8. The reference r yared was not used to int erpret this result as normal/abnormal . [facility] HospitalMfdzsxoVTJYBUNSEH1257-95-41 13:45:00 Test Item Value Reference Range Interpretation Comments Eosinophils # (test code 0.2 See_Comment [A utomated message] The = Eosinophils #) system whic h generated this result tra nsmitted reference range : <=0.5. The reference r yared was not used to int erpret this result as normal/abnormal . [facility]OnstfktTLBNHTAONTQL9203-13-06 13:25:00 Test Item Value Reference Range Interpretation Comments Sodium Lvl (test code = Sodium Lvl) 136 135-145 [facility] AlmaKlggorlDPGIPEMKDVXY0404-62-04 13:25:00 Test Item Value Reference Range Interpretation Comments Potassium Lvl (test code = Potassium 3.7 3.5-5.1 Lvl) [facility] AlmaAvdewruCOYIWFGATWGZ3344-70-08 13:25:00 Test Item Value Reference Range Interpretation Comments Chloride Lvl (test code = Chloride Lvl) 99 95-109 [facility] AlmaMrguhpkTHBVNHFJTXAT3208-10-35 13:25:00 Test Item Value Reference Range Interpretation Comments Glucose Lvl (test code = Glucose Lvl) 137 70-99 [facility] AlmaAejurdcSXQYYORNGTGR9765-56-11 13:25:00 Test Item Value Reference Range Interpretation Comments BUN (test code = BUN) 42 7-22 [facility] AlmaWrmkengRDYBEKOCKGNE0708-90-97 13:25:00 Test Item Value Reference Range Interpretation Comments Creatinine Lvl (test code = Creatinine 9.35 0.50-1.40 Lvl) [facility] AlmaKpgveocWKSHZODMIGMU3147-39-47 13:25:00 Test Item Value Reference Range Interpretation Comments CO2 (test code = CO2) 32 24-32 [facility] AlmaYajholoPXADBHKKPOMI9365-29-74 13:25:00 Test Item Value Reference Range Interpretation Comments Calcium Lvl (test code = Calcium Lvl) 8.8 8.5-10.5 [facility] AlmaNdquzpvQXFKPMOAHSDE2251-36-21 13:25:00 Test Item Value Reference Range Interpretation Comments AGAP (test code = AGAP) 8.7 10.0-20.0 [facility] AlmaOnkukqwTXDGVHAOSFTU5293-31-34 13:25:00 Test Item Value Reference Range Interpretation Comments eGFR (test code = eGFR) 6 [facility] HospitalNtsurrfZCZBARISUS9939-49-73 17:58:00 Test Item Value Reference Range Interpretation Comments Vanco Lvl (test code = Vanco Lvl) 10.6 [facility] [id number] 15:00:00 Test Item Value Reference Range Interpretation Comments Color BF (test code = Colorless (11/01/19 9:00 Color BF) AM) [facility] [id number] 15:00:00 Test Item Value Reference Range Interpretation Comments Clarity BF (test code = Slight Cloudy (11/01/19 Clarity BF) 9:00 AM) [facility]2020-01-24 15:00:00 Test Item Value Reference Range Interpretation Comments Nucleated Cells BF (test code = 579 Nucleated Cells BF) [facility]2020-01-24 15:00:00 Test Item Value Reference Range Interpretation Comments RBC BF (test code = RBC BF) 54 [facility]2020-01-24 15:00:00 Test Item Value Reference Range Interpretation Comments Neutrophils BF (test code = Neutrophils 20 BF) [facility]2020-01-24 15:00:00 Test Item Value Reference Range Interpretation Comments Lymph BF (test code = Lymph BF) 41 [facility]2020-01-24 15:00:00 Test Item Value Reference Range Interpretation Comments Macrophage BF (test code = Macrophage 35 BF) [facility]2020-01-24 15:00:00 Test Item Value Reference Range Interpretation Comments Meso BF (test code = Meso BF) 4 [facility]2020-01-24 15:00:00 Test Item Value Reference Range Interpretation Comments CellCnt BF Type (test Periton (11/01/19 9:00 code = CellCnt BF Type) AM) [facility] HospitalG[facility] [id number] 15:00:00 Test Item Value Reference Range Interpretation Comments Gram Stain Report No Wbc'S Or Organisms (test code = Gram Seen Stain Report) [facility]: Aspirate/Body Fluid/Unzayz8512-35-84 15:00:00 Test Item Value Reference Range Interpretation Comments Culture: Aspirate/Body Fluid/Tissue No Growth (test code = Culture: Aspirate/Body Fluid/Tissue) [facility]2020-01-23 18:35:00 Test Item Value Reference Range Interpretation Comments Color BF (test code = Colorless (10/31/19 12:35 Color BF) PM) [facility]2020-01-23 18:35:00 Test Item Value Reference Range Interpretation Comments Clarity BF (test code = Slight Cloudy (10/31/19 Clarity BF) 12:35 PM) [facility]2020-01-23 18:35:00 Test Item Value Reference Range Interpretation Comments Nucleated Cells BF (test code = 557 Nucleated Cells BF) [facility]2020-01-23 18:35:00 Test Item Value Reference Range Interpretation Comments RBC BF (test code = RBC BF) 0 [facility] [id number] 18:35:00 Test Item Value Reference Range Interpretation Comments Neutrophils BF (test code = Neutrophils 35 BF) [facility] [id number] 18:35:00 Test Item Value Reference Range Interpretation Comments Lymph BF (test code = Lymph BF) 21 [facility] HospitalB[facility] [id number] 18:35:00 Test Item Value Reference Range Interpretation Comments Macrophage BF (test code = Macrophage 43 BF) [facility] [id number] 18:35:00 Test Item Value Reference Range Interpretation Comments Eos BF (test code = Eos BF) 1 [facility] [id number] 18:35:00 Test Item Value Reference Range Interpretation Comments CellCnt BF Type (test Periton (10/31/19 12:35 code = CellCnt BF Type) PM) [facility] [id number] 18:35:00 Test Item Value Reference Range Interpretation Comments Gram Stain Report Rare WBC's No Organisms (test code = Gram Seen Stain Report) [facility]: Aspirate/Body Fluid/[id number] 18:35:00 Test Item Value Reference Range Interpretation Comments Culture: Aspirate/Body Fluid/Tissue No Growth (test code = Culture: Aspirate/Body Fluid/Tissue) [facility] HospitalCHEM [id number] 10:35:00 Test Item Value Reference Range Interpretation Comments Phosphorus (test code = Phosphorus) 4.3 2.5-4.5 [facility]CHEM [id number] 10:35:00 Test Item Value Reference Range Interpretation Comments Magnesium Lvl (test code = Magnesium 2.0 1.8-2.4 Lvl) [facility] KingwoodUoyfivsLUPNOKIOXP3045-51-07 10:35:00 Test Item Value Reference Range Interpretation Comments WBC (test code = WBC) 6.3 3.7-10.4 [facility] KingwoodSkbxcclQWGLBPOSAR8667-87-34 10:35:00 Test Item Value Reference Range Interpretation Comments RBC (test code = RBC) 2.76 4.70-6.10 [facility] KingwoodMkpgzmxJHIIBFZTMU1901-40-02 10:35:00 Test Item Value Reference Range Interpretation Comments Hgb (test code = Hgb) 8.1 14.0-18.0 [place] [id number] 10:35:00 Test Item Value Reference Range Interpretation Comments Hct (test code = Hct) 23.5 42.0-54.0 [place] 861290-01-23 10:35:00 Test Item Value Reference Range Interpretation Comments MCV (test code = MCV) 85.2 80.0-94.0 [place] 861290-01-23 10:35:00 Test Item Value Reference Range Interpretation Comments MCH (test code = MCH) 29.2 pg 27.0-31.0 [place] 861290-01-23 10:35:00 Test Item Value Reference Range Interpretation Comments MCHC (test code = MCHC) 34.3 32.0-36.0 [place] 861290-01-23 10:35:00 Test Item Value Reference Range Interpretation Comments RDW (test code = RDW) 14.5 11.5-14.5 [place] 861290-01-23 10:35:00 Test Item Value Reference Range Interpretation Comments Platelet (test code = Platelet) 188 133-450 [facility] HospitalUbytamhKJKUTJJXWP8974-30-58 10:35:00 Test Item Value Reference Range Interpretation Comments MPV (test code = MPV) 7.0 7.4-10.4 [facility] HospitalIsglzehHFXWHQSIYZ7524-98-07 10:35:00 Test Item Value Reference Range Interpretation Comments Segs (test code = Segs) 77.7 45.0-75.0 [facility] HospitalUahuajhPRDEIWJZKM5665-85-87 10:35:00 Test Item Value Reference Range Interpretation Comments Lymphocytes (test code = Lymphocytes) 10.2 20.0-40.0 [facility] HospitalVyoyeukIBHZJJBSBK6719-31-98 10:35:00 Test Item Value Reference Range Interpretation Comments Monocytes (test code = Monocytes) 10.0 2.0-12.0 [place] [id number] 10:35:00 Test Item Value Reference Range Interpretation Comments Eosinophils (test code = 1.7 See_Comment [A utomated message] The Eosinophils) system which ge nerated this result tra nsmitted reference range : <=4.0. The reference r yared was not used to int erpret this result as normal/abnormal . [facility] HospitalTomveatBQUSORQXCK0435-03-59 10:35:00 Test Item Value Reference Range Interpretation Comments Basophils (test code = 0.4 See_Comment [Aut omated message] The Basophils) system which ge nerated this result tra nsmitted reference range : <=1.0. The reference r yared was not used to int erpret this result as normal/abnormal . [facility] HospitalUjfmmqrOOAYVKPQYW3317-44-05 10:35:00 Test Item Value Reference Range Interpretation Comments Neutrophils # (test code = Neutrophils 4.9 1.5-8.1 #) [facility] HospitalBopdufzDFCFXTSFMW7664-64-21 10:35:00 Test Item Value Reference Range Interpretation Comments Lymphocytes # (test code = Lymphocytes 0.6 1.0-5.5 #) [facility] HospitalUmaouuuCWZDHYARBY1936-93-70 10:35:00 Test Item Value Reference Range Interpretation Comments Monocytes # (test code 0.6 See_Comment [Aut omated message] The = Monocytes #) system which generated this result tra nsmitted reference range : <=0.8. The reference r yared was not used to int erpret this result as normal/abnormal . [facility] HospitalZzpyenkMDBQBCGOOG2354-18-37 10:35:00 Test Item Value Reference Range Interpretation Comments Eosinophils # (test code 0.1 See_Comment [A utomated message] The = Eosinophils #) system whic h generated this result tra nsmitted reference range : <=0.5. The reference r yared was not used to int erpret this result as normal/abnormal . [facility]2020-01-22 19:34:00 Test Item Value Reference Range Interpretation Comments Source Respiratory Nasophrngl Swb Panel PCR (test code = *NA*(10/30/19 1:34 PM) Source Respiratory Panel PCR) [place] [id number] 19:34:00 Test Item Value Reference Range Interpretation Comments Influenza A PCR (test Negative *NA*(10/30/19 code = Influenza A PCR) 1:34 PM) [place] [id number] 19:34:00 Test Item Value Reference Range Interpretation Comments Influenza B PCR (test Negative *NA*(10/30/19 code = Influenza B PCR) 1:34 PM) [facility]2020-01-22 19:34:00 Test Item Value Reference Range Interpretation Comments RSV PCR (test code = Positive *ABN*(10/30/19 RSV PCR) 1:34 PM) [facility]woodannIMIPENEM:SUSC:PT:ISOLATE:ORDQN:[id number] 18:00:00 Test Item Value Reference Range Interpretation Comments Gram Stain Report Few WBC's No Organisms (test code = Gram Seen Stain Report) [facility]woodannIMIPENEM:SUSC:PT:ISOLATE:ORDQN:[id number] 18:00:00 Test Item Value Reference Range Interpretation Comments Culture: Few Pseudomonas putida Aspirate/Body Growth In Subculture Broth Fluid/Tissue (test Only Enterococcus Species code = Culture: Aspirate/Body Fluid/Tissue) [facility]woodannIMIPENEM:SUSC:PT:ISOLATE:ORDQN:[id number] 18:00:00 Test Item Value Reference Range Interpretation Comments Enterococcus Species Enterococcus Species (test code = Enterococcus Species) [facility]IMIPENEM:SUSC:PT:ISOLATE:ORDQN:[id number] 18:00:00 Test Item Value Reference Range Interpretation Comments Pseudomonas putida (test Pseudomonas putida code = Pseudomonas putida) [facility]2020-01-22 17:21:00 Test Item Value Reference Range Interpretation Comments Lactic Acid Lvl (test code = Lactic 0.6 0.5-2.2 Acid Lvl) [facility]2020-01-22 10:56:00 Test Item Value Reference Range Interpretation Comments Magnesium Lvl (test code = Magnesium 2.1 1.8-2.4 Lvl) [facility]2020-01-22 10:56:00 Test Item Value Reference Range Interpretation Comments Phosphorus (test code = Phosphorus) 4.5 2.5-4.5 [facility]JhymtmgWQHXNMQKSW4863-24-80 10:56:00 Test Item Value Reference Range Interpretation Comments WBC (test code = WBC) 6.7 3.7-10.4 [facility] HospitalLukockwGCMMRFSYJQ0110-78-24 10:56:00 Test Item Value Reference Range Interpretation Comments RBC (test code = RBC) 2.47 4.70-6.10 [facility] HospitalQdcqkyiAHKGUBOTCY4288-54-74 10:56:00 Test Item Value Reference Range Interpretation Comments Hgb (test code = Hgb) 7.2 14.0-18.0 [place] 861290-01-22 10:56:00 Test Item Value Reference Range Interpretation Comments Hct (test code = Hct) 21.1 42.0-54.0 [facility] HospitalYqtsqrwOKVNLSBDQO8488-80-25 10:56:00 Test Item Value Reference Range Interpretation Comments MCV (test code = MCV) 85.2 80.0-94.0 [place] 861290-01-22 10:56:00 Test Item Value Reference Range Interpretation Comments MCH (test code = MCH) 28.9 pg 27.0-31.0 [facility] HospitalWpnljgaUDYVJSHKSS6543-57-10 10:56:00 Test Item Value Reference Range Interpretation Comments MCHC (test code = MCHC) 34.0 32.0-36.0 [facility] HospitalHmrkbxzGIVRWBFIZU4309-01-07 10:56:00 Test Item Value Reference Range Interpretation Comments RDW (test code = RDW) 14.6 11.5-14.5 [place] 861290-01-22 10:56:00 Test Item Value Reference Range Interpretation Comments Platelet (test code = Platelet) 171 133-450 [facility] HospitalSuhtofmGGMFPLTIKZ6314-41-88 10:56:00 Test Item Value Reference Range Interpretation Comments MPV (test code = MPV) 7.2 7.4-10.4 [facility] HospitalPxzisdgXFYPWVDEOM8498-29-74 10:56:00 Test Item Value Reference Range Interpretation Comments Segs (test code = Segs) 87.8 45.0-75.0 [facility] HospitalLfkjxsfSGVACNMBGF6399-33-40 10:56:00 Test Item Value Reference Range Interpretation Comments Lymphocytes (test code = Lymphocytes) 3.9 20.0-40.0 [facility] HospitalRevoyvsNGAWVYHZMG2492-99-69 10:56:00 Test Item Value Reference Range Interpretation Comments Monocytes (test code = Monocytes) 6.8 2.0-12.0 [place] [address]-01-22 10:56:00 Test Item Value Reference Range Interpretation Comments Eosinophils (test code = 1.1 See_Comment [A utomated message] The Eosinophils) system which ge nerated this result tra nsmitted reference range : <=4.0. The reference r yared was not used to int erpret this result as normal/abnormal . [facility] HospitalVmrfkajOLUXISPGUJ4793-81-76 10:56:00 Test Item Value Reference Range Interpretation Comments Basophils (test code = 0.4 See_Comment [Aut omated message] The Basophils) system which ge nerated this result tra nsmitted reference range : <=1.0. The reference r yared was not used to int erpret this result as normal/abnormal . [facility] KingwoodSjkctpkMUCEBMYOWW7347-80-86 10:56:00 Test Item Value Reference Range Interpretation Comments Neutrophils # (test code = Neutrophils 5.9 1.5-8.1 #) [facility] KingwoodHyddveyEZJCHAVQAA8552-12-05 10:56:00 Test Item Value Reference Range Interpretation Comments Lymphocytes # (test code = Lymphocytes 0.3 1.0-5.5 #) [facility] HospitalAokvifhUWIAOIVLKG9893-24-19 10:56:00 Test Item Value Reference Range Interpretation Comments Monocytes # (test code 0.5 See_Comment [Aut omated message] The = Monocytes #) system which generated this result tra nsmitted reference range : <=0.8. The reference r yared was not used to int erpret this result as normal/abnormal . [facility] KingwoodGltgdslPKWTFKYBDC8337-85-29 10:56:00 Test Item Value Reference Range Interpretation Comments Eosinophils # (test code 0.1 See_Comment [A utomated message] The = Eosinophils #) system whic h generated this result tra nsmitted reference range : <=0.5. The reference r yared was not used to int erpret this result as normal/abnormal . [facility] [employer]2020-01-21 22:52:00 Test Item Value Reference Range Interpretation Comments Magnesium Lvl (test code = Magnesium 2.2 1.8-2.4 Lvl) [facility] [employer] [id number] 22:52:00 Test Item Value Reference Range Interpretation Comments Phosphorus (test code = Phosphorus) 5.8 2.5-4.5 [facility] [employer]2020-01-21 10:47:00 Test Item Value Reference Range Interpretation Comments Troponin-I (test code 0.02 See_Comment [Auto mated message] The = Troponin-I) system which g enerated this result transmit emerson reference range : <=0.40. The reference r yared was not used to interpr et this result as erinn l/abnormal. [employer]2020-01-21 07:19:00 Test Item Value Reference Range Interpretation Comments Troponin-I (test code 0.02 See_Comment [Auto mated message] The = Troponin-I) system which g enerated this result transmit emerson reference range : <=0.40. The reference r yared was not used to interpr et this result as erinn l/abnormal. [facility]ARD[facility] [id number] 03:06:00 Test Item Value Reference Range Interpretation Comments Troponin-I (test code no gt See_Comment [Auto mated message] The = Troponin-I) system which g enerated this result transmit emerson reference range : <=0.40. The reference r yared was not used to interpr et this result as erinn l/abnormal. [facility] [employer] [id number] 03:06:00 Test Item Value Reference Range Interpretation Comments Total Protein (test code = Total 5.5 6.4-8.4 Protein) [facility] [employer] [id number] 03:06:00 Test Item Value Reference Range Interpretation Comments Albumin Lvl (test code = Albumin Lvl) 2.3 3.5-5.0 [facility] [employer] [facility] [id number] 03:06:00 Test Item Value Reference Range Interpretation Comments ALT (test code = ALT) 22 See_Comment [Auto mated message] The system which ge nerated this result transmit emerson reference range : <=65. The reference range was not used to interpr et this result as erinn l/abnormal. [facility] [employer] [id number] 03:06:00 Test Item Value Reference Range Interpretation Comments AST (test code = AST) 50 See_Comment [Auto mated message] The system which ge nerated this result transmit emerson reference range : <=37. The reference range was not used to interpr et this result as erinn l/abnormal. [facility] [employer] [id number] 03:06:00 Test Item Value Reference Range Interpretation Comments Alk Phos (test code = Alk Phos) 68 39-136 [facility] [employer] [id number] 03:06:00 Test Item Value Reference Range Interpretation Comments Bili Total (test code = Bili Total) 0.6 0.2-1.3 [facility] [employer] [id number] 03:06:00 Test Item Value Reference Range Interpretation Comments B/C Ratio (test code = B/C Ratio) 5 1 6-25 [facility]2020-01-21 03:06:00 Test Item Value Reference Range Interpretation Comments Globulin (test code = Globulin) 3.2 2.7-4.2 [facility]2020-01-21 03:06:00 Test Item Value Reference Range Interpretation Comments A/G Ratio (test code = A/G Ratio) 0.7 1 0.7-1.6 [facility] HospitalNlkchboZZHWAPRNAA9411-87-82 03:06:00 Test Item Value Reference Range Interpretation Comments Plt Morph (test code = Normal (10/28/19 9:06 Plt Morph) PM) [facility] HospitalQernmpmSXZJQUJXGQ4856-93-82 03:06:00 Test Item Value Reference Range Interpretation Comments Basophils # (test code 0.1 See_Comment [Aut omated message] The = Basophils #) system which generated this result tra nsmitted reference range : <=0.2. The reference r yared was not used to int erpret this result as normal/abnormal . [facility]2019-11-12 10:56:00 Test Item Value Reference Range Interpretation Comments Glucose Lvl (test code = Glucose Lvl) 93 70-99 [facility]2019-11-12 10:56:00 Test Item Value Reference Range Interpretation Comments BUN (test code = BUN) 26 7-22 [facility]2019-11-12 10:56:00 Test Item Value Reference Range Interpretation Comments Creatinine Lvl (test code = Creatinine 7.85 0.50-1.40 Lvl) [facility]2019-11-12 10:56:00 Test Item Value Reference Range Interpretation Comments Sodium Lvl (test code = Sodium Lvl) 140 135-145 [facility]2019-11-12 10:56:00 Test Item Value Reference Range Interpretation Comments Potassium Lvl (test code = Potassium 3.7 3.5-5.1 Lvl) [facility]2019-11-12 10:56:00 Test Item Value Reference Range Interpretation Comments Chloride Lvl (test code = Chloride Lvl) 104 95-109 [facility]2019-11-12 10:56:00 Test Item Value Reference Range Interpretation Comments CO2 (test code = CO2) 25 24-32 [facility]2019-11-12 10:56:00 Test Item Value Reference Range Interpretation Comments Calcium Lvl (test code = Calcium Lvl) 9.2 8.5-10.5 [facility]2019-11-12 10:56:00 Test Item Value Reference Range Interpretation Comments eGFR (test code = eGFR) 7 [facility]2019-11-12 10:56:00 Test Item Value Reference Range Interpretation Comments AGAP (test code = AGAP) 14.7 10.0-20.0 [facility] HospitalJainohbSNTYMZGHFO4733-88-16 10:56:00 Test Item Value Reference Range Interpretation Comments WBC (test code = WBC) 8.6 3.7-10.4 [facility] HospitalPwfdaseJRWJWGTIUW9241-82-60 10:56:00 Test Item Value Reference Range Interpretation Comments RBC (test code = RBC) 3.37 4.70-6.10 [facility] HospitalZvtbshvMKHDNOJGZX5058-44-61 10:56:00 Test Item Value Reference Range Interpretation Comments Hgb (test code = Hgb) 10.2 14.0-18.0 [facility] HospitalOofyottTRRJOEQWHY7152-73-87 10:56:00 Test Item Value Reference Range Interpretation Comments Hct (test code = Hct) 29.9 42.0-54.0 [facility] HospitalKumpwnaEHOZSHSILN7528-28-55 10:56:00 Test Item Value Reference Range Interpretation Comments MCV (test code = MCV) 88.7 80.0-94.0 [facility] HospitalFwbarliMOFXNJDAOS2094-08-16 10:56:00 Test Item Value Reference Range Interpretation Comments MCH (test code = MCH) 30.1 pg 27.0-31.0 [facility] HospitalYfocpzxMZMOAKARCQ0697-59-14 10:56:00 Test Item Value Reference Range Interpretation Comments MCHC (test code = MCHC) 33.9 32.0-36.0 [facility] HospitalIfmnthtPROQZNVEEH3945-61-29 10:56:00 Test Item Value Reference Range Interpretation Comments RDW (test code = RDW) 13.7 11.5-14.5 [facility] HospitalLsgysbtZMMNTLCECR0504-77-70 10:56:00 Test Item Value Reference Range Interpretation Comments Platelet (test code = Platelet) 294 133-450 [facility] HospitalBgwnhbaFEICHFUIAY0173-45-55 10:56:00 Test Item Value Reference Range Interpretation Comments MPV (test code = MPV) 6.7 7.4-10.4 [facility] HospitalOopucwjGOCDSULEYP8361-40-87 10:56:00 Test Item Value Reference Range Interpretation Comments Segs (test code = Segs) 79.5 45.0-75.0 [facility] HospitalUnubitgLTNJSDPOSR5526-39-87 10:56:00 Test Item Value Reference Range Interpretation Comments Lymphocytes (test code = Lymphocytes) 12.8 20.0-40.0 [facility] HospitalQveflvoDJUUVFOIWW4812-50-93 10:56:00 Test Item Value Reference Range Interpretation Comments Monocytes (test code = Monocytes) 6.3 2.0-12.0 [facility] HospitalSjlzuxxZCDJWONYNB2651-30-48 10:56:00 Test Item Value Reference Range Interpretation Comments Eosinophils (test code = 0.6 See_Comment [A utomated message] The Eosinophils) system which ge nerated this result tra nsmitted reference range : <=4.0. The reference r yared was not used to int erpret this result as normal/abnormal . [facility] HospitalEceqifxVINDTOKLYH2211-87-52 10:56:00 Test Item Value Reference Range Interpretation Comments Basophils (test code = 0.8 See_Comment [Aut omated message] The Basophils) system which ge nerated this result tra nsmitted reference range : <=1.0. The reference r yared was not used to int erpret this result as normal/abnormal . [facility] HospitalTpqdlelAPSOONLMGS5304-88-87 10:56:00 Test Item Value Reference Range Interpretation Comments Neutrophils # (test code = Neutrophils 6.8 1.5-8.1 #) [facility] HospitalCzvqxzuOFAHBQVAIY2312-28-86 10:56:00 Test Item Value Reference Range Interpretation Comments Lymphocytes # (test code = Lymphocytes 1.1 1.0-5.5 #) [facility] HospitalMjmgbdoQFAZYKDULG4818-27-46 10:56:00 Test Item Value Reference Range Interpretation Comments Monocytes # (test code 0.5 See_Comment [Aut omated message] The = Monocytes #) system which generated this result tra nsmitted reference range : <=0.8. The reference r yared was not used to int erpret this result as normal/abnormal . [facility] HospitalBuetupdUZQGIAJPKI4408-93-06 10:56:00 Test Item Value Reference Range Interpretation Comments Basophils # (test code 0.1 See_Comment [Aut omated message] The = Basophils #) system which generated this result tra nsmitted reference range : <=0.2. The reference r yared was not used to int erpret this result as normal/abnormal . [facility]2019-11-11 10:14:00 Test Item Value Reference Range Interpretation Comments Creatinine Lvl (test code = Creatinine 7.09 0.50-1.40 Lvl) [facility]2019-11-11 10:14:00 Test Item Value Reference Range Interpretation Comments Sodium Lvl (test code = Sodium Lvl) 138 135-145 [facility]2019-11-11 10:14:00 Test Item Value Reference Range Interpretation Comments Potassium Lvl (test code = Potassium 3.6 3.5-5.1 Lvl) [facility]2019-11-11 10:14:00 Test Item Value Reference Range Interpretation Comments Chloride Lvl (test code = Chloride Lvl) 100 95-109 [facility]2019-11-11 10:14:00 Test Item Value Reference Range Interpretation Comments CO2 (test code = CO2) 28 24-32 [facility]2019-11-11 10:14:00 Test Item Value Reference Range Interpretation Comments AGAP (test code = AGAP) 13.6 10.0-20.0 [facility]2019-11-11 10:14:00 Test Item Value Reference Range Interpretation Comments Calcium Lvl (test code = Calcium Lvl) 9.5 8.5-10.5 [facility]2019-11-11 10:14:00 Test Item Value Reference Range Interpretation Comments eGFR (test code = eGFR) 8 [facility] HospitalQsrzlvuCDPTSYCHTK1364-11-65 10:14:00 Test Item Value Reference Range Interpretation Comments WBC (test code = WBC) 7.7 3.7-10.4 [facility] HospitalHnhqhbnADHVLPVNXX0093-58-28 10:14:00 Test Item Value Reference Range Interpretation Comments RBC (test code = RBC) 3.61 4.70-6.10 [facility] HospitalWulbwyjFJAATZEDXW4748-41-94 10:14:00 Test Item Value Reference Range Interpretation Comments Hgb (test code = Hgb) 10.8 14.0-18.0 [facility] HospitalOntgfcbHQIBMFHWBO4731-20-59 10:14:00 Test Item Value Reference Range Interpretation Comments Hct (test code = Hct) 31.7 42.0-54.0 [facility] HospitalEfkxgqtETBGXZMPQH8517-79-90 10:14:00 Test Item Value Reference Range Interpretation Comments MCV (test code = MCV) 87.7 80.0-94.0 [facility] HospitalQqptvtkUZWFFILZAW0145-09-05 10:14:00 Test Item Value Reference Range Interpretation Comments MCH (test code = MCH) 30.0 pg 27.0-31.0 [facility] HospitalNxxzuosCBXXPNWUBY3771-62-31 10:14:00 Test Item Value Reference Range Interpretation Comments MCHC (test code = MCHC) 34.2 32.0-36.0 [facility] HospitalXvkqetbIQLWOKCQRP5231-17-92 10:14:00 Test Item Value Reference Range Interpretation Comments RDW (test code = RDW) 14.0 11.5-14.5 [facility] HospitalFanncbdSSSUVWZSKR4005-50-91 10:14:00 Test Item Value Reference Range Interpretation Comments Platelet (test code = Platelet) 292 133-450 [facility] HospitalPesxeryDMWRVEMCWP9619-93-92 10:14:00 Test Item Value Reference Range Interpretation Comments MPV (test code = MPV) 7.0 7.4-10.4 [facility] HospitalCiejrnwVEIATXBWPQ6461-00-41 10:14:00 Test Item Value Reference Range Interpretation Comments Segs (test code = Segs) 75.0 45.0-75.0 [facility] HospitalGgxxasuLQRDBABDLX1599-30-09 10:14:00 Test Item Value Reference Range Interpretation Comments Lymphocytes (test code = Lymphocytes) 15.4 20.0-40.0 [facility] HospitalStofsmdXQVZHMAITW3710-60-96 10:14:00 Test Item Value Reference Range Interpretation Comments Monocytes (test code = Monocytes) 7.1 2.0-12.0 [facility] HospitalVrfknqsXXAOMTHGOD0705-84-98 10:14:00 Test Item Value Reference Range Interpretation Comments Eosinophils (test code = 1.4 See_Comment [A utomated message] The Eosinophils) system which ge nerated this result tra nsmitted reference range : <=4.0. The reference r yared was not used to int erpret this result as normal/abnormal . [facility] [facility]gbxhnyOZLIJZHLSF6296-01-80 10:14:00 Test Item Value Reference Range Interpretation Comments Basophils (test code = 1.1 See_Comment [Aut omated message] The Basophils) system which ge nerated this result tra nsmitted reference range : <=1.0. The reference r yared was not used to int erpret this result as normal/abnormal . [facility] HospitalDtiabciPAIKHDDTTT2701-20-29 10:14:00 Test Item Value Reference Range Interpretation Comments Neutrophils # (test code = Neutrophils 5.8 1.5-8.1 #) [facility] HospitalXbpafqkIDVHVLGDOK1873-76-58 10:14:00 Test Item Value Reference Range Interpretation Comments Lymphocytes # (test code = Lymphocytes 1.2 1.0-5.5 #) [facility] HospitalMvljvuzGDCBNJTHWO1349-05-44 10:14:00 Test Item Value Reference Range Interpretation Comments Monocytes # (test code 0.5 See_Comment [Aut omated message] The = Monocytes #) system which generated this result tra nsmitted reference range : <=0.8. The reference r yared was not used to int erpret this result as normal/abnormal . [facility] HospitalFufonpwKAKJRYGZTG5543-56-18 10:14:00 Test Item Value Reference Range Interpretation Comments Eosinophils # (test code 0.1 See_Comment [A utomated message] The = Eosinophils #) system whic h generated this result tra nsmitted reference range : <=0.5. The reference r yared was not used to int erpret this result as normal/abnormal . [facility] HospitalMdymwgjXBNCOZVHPO8838-75-87 10:14:00 Test Item Value Reference Range Interpretation Comments Basophils # (test code 0.1 See_Comment [Aut omated message] The = Basophils #) system which generated this result tra nsmitted reference range : <=0.2. The reference r yared was not used to int erpret this result as normal/abnormal . [facility]2019-11-11 10:14:00 Test Item Value Reference Range Interpretation Comments Glucose Lvl (test code = Glucose Lvl) 105 70-99 [facility]2019-11-11 10:14:00 Test Item Value Reference Range Interpretation Comments BUN (test code = BUN) 18 7-22 [facility]2019-11-10 10:24:00 Test Item Value Reference Range Interpretation Comments Glucose Lvl (test code = Glucose Lvl) 106 70-99 [facility]2019-11-10 10:24:00 Test Item Value Reference Range Interpretation Comments BUN (test code = BUN) 34 7-22 [facility]2019-11-10 10:24:00 Test Item Value Reference Range Interpretation Comments Creatinine Lvl (test code = Creatinine 11.00 0.50-1.40 Lvl) [facility]2019-11-10 10:24:00 Test Item Value Reference Range Interpretation Comments Sodium Lvl (test code = Sodium Lvl) 139 135-145 [facility]2019-11-10 10:24:00 Test Item Value Reference Range Interpretation Comments Potassium Lvl (test code = Potassium 3.6 3.5-5.1 Lvl) [facility]2019-11-10 10:24:00 Test Item Value Reference Range Interpretation Comments Chloride Lvl (test code = Chloride Lvl) 103 95-109 [facility]2019-11-10 10:24:00 Test Item Value Reference Range Interpretation Comments CO2 (test code = CO2) 28 24-32 [facility]2019-11-10 10:24:00 Test Item Value Reference Range Interpretation Comments AGAP (test code = AGAP) 11.6 10.0-20.0 [facility]2019-11-10 10:24:00 Test Item Value Reference Range Interpretation Comments Calcium Lvl (test code = Calcium Lvl) 9.0 8.5-10.5 [facility]2019-11-10 10:24:00 Test Item Value Reference Range Interpretation Comments eGFR (test code = eGFR) 5 [facility] HospitalMixsflwYEOTAUTITQ7991-29-92 10:24:00 Test Item Value Reference Range Interpretation Comments WBC (test code = WBC) 6.9 3.7-10.4 [facility] HospitalYtffqlkNJLYGFJPJF2564-76-63 10:24:00 Test Item Value Reference Range Interpretation Comments RBC (test code = RBC) 3.13 4.70-6.10 [facility] HospitalPlcvcgsKPMJBTSIBY1723-51-08 10:24:00 Test Item Value Reference Range Interpretation Comments Hgb (test code = Hgb) 9.3 14.0-18.0 [facility] HospitalSkpgumiTKRXGSHLMG7723-08-00 10:24:00 Test Item Value Reference Range Interpretation Comments Hct (test code = Hct) 27.4 42.0-54.0 [facility] HospitalSmrqunsBICASRAOUY0405-52-42 10:24:00 Test Item Value Reference Range Interpretation Comments MCV (test code = MCV) 87.7 80.0-94.0 [facility] HospitalGhnjoknGZDLPVNVDR9995-94-75 10:24:00 Test Item Value Reference Range Interpretation Comments MCH (test code = MCH) 29.6 pg 27.0-31.0 [facility] HospitalIrsswmoXHLEQJBXPD6224-03-21 10:24:00 Test Item Value Reference Range Interpretation Comments MCHC (test code = MCHC) 33.8 32.0-36.0 [facility] HospitalCnnkmzmQOYUGSEDDQ0156-14-26 10:24:00 Test Item Value Reference Range Interpretation Comments RDW (test code = RDW) 14.0 11.5-14.5 [facility] HospitalLxtyqlbHOGMGNIUZC4930-30-59 10:24:00 Test Item Value Reference Range Interpretation Comments Platelet (test code = Platelet) 236 133-450 [facility] HospitalYaaoeizBIZAPQKCZS2815-36-19 10:24:00 Test Item Value Reference Range Interpretation Comments MPV (test code = MPV) 6.9 7.4-10.4 [facility] HospitalNuhzjcnKLOVZIISOZ3133-99-29 10:24:00 Test Item Value Reference Range Interpretation Comments Segs (test code = Segs) 78.2 45.0-75.0 [facility] HospitalQxxljhuFQNJSTEEOC3888-32-15 10:24:00 Test Item Value Reference Range Interpretation Comments Lymphocytes (test code = Lymphocytes) 12.2 20.0-40.0 [facility] HospitalJcljfdoOVUKSMAVQA0468-35-58 10:24:00 Test Item Value Reference Range Interpretation Comments Monocytes (test code = Monocytes) 6.6 2.0-12.0 [facility] HospitalZsjsftqAEUOKVZCFR0116-79-63 10:24:00 Test Item Value Reference Range Interpretation Comments Eosinophils (test code = 2.4 See_Comment [A utomated message] The Eosinophils) system which ge nerated this result tra nsmitted reference range : <=4.0. The reference r yared was not used to int erpret this result as normal/abnormal . [facility] HospitalOnxscqpZCMAAWBZEM0774-87-05 10:24:00 Test Item Value Reference Range Interpretation Comments Basophils (test code = 0.6 See_Comment [Aut omated message] The Basophils) system which ge nerated this result tra nsmitted reference range : <=1.0. The reference r yared was not used to int erpret this result as normal/abnormal . [facility] HospitalErfioxhMPYRPCJAFH4963-89-63 10:24:00 Test Item Value Reference Range Interpretation Comments Neutrophils # (test code = Neutrophils 5.4 1.5-8.1 #) [facility] HospitalNfprqsbYYJOXCROKU9757-09-59 10:24:00 Test Item Value Reference Range Interpretation Comments Lymphocytes # (test code = Lymphocytes 0.8 1.0-5.5 #) [facility] HospitalXjvjcbrILBIXVSMLZ7301-88-33 10:24:00 Test Item Value Reference Range Interpretation Comments Monocytes # (test code 0.5 See_Comment [Aut omated message] The = Monocytes #) system which generated this result tra nsmitted reference range : <=0.8. The reference r yared was not used to int erpret this result as normal/abnormal . [facility] HospitalUkazwbaRCBVRQKXBH3062-20-44 10:24:00 Test Item Value Reference Range Interpretation Comments Eosinophils # (test code 0.2 See_Comment [A utomated message] The = Eosinophils #) system whic h generated this result tra nsmitted reference range : <=0.5. The reference r yared was not used to int erpret this result as normal/abnormal . [facility] HospitalPrvvvzhSMBBNMZQYQ0747-74-69 14:31:00 Test Item Value Reference Range Interpretation Comments Hep Bs Ag (test code Negative *NA*(08/17/19 = Hep Bs Ag) 8:31 AM) [facility] HospitalDuctechCEZYDISOEF9694-44-88 19:35:00 Test Item Value Reference Range Interpretation Comments PT (test code = PT) 12.2 s 12.0-14.7 [facility] HospitalHnrgefvKZHMPCKESD1721-48-42 19:35:00 Test Item Value Reference Range Interpretation Comments INR (test code = INR) 0.92 1 0.85-1.17 [facility] HospitalPttbdxhMQSLMRVVAI2698-41-44 19:35:00 Test Item Value Reference Range Interpretation Comments PTT (test code = PTT) 37.1 s 22.9-35.8 [facility]2019-06-30 10:20:00 Test Item Value Reference Range Interpretation Comments eGFR (test code = eGFR) 3 [facility]2019-06-30 10:20:00 Test Item Value Reference Range Interpretation Comments Glucose Lvl (test code = Glucose Lvl) 96 70-99 [facility] QNJCD1360-89-21 10:20:00 Test Item Value Reference Range Interpretation Comments BUN (test code = BUN) 68 7-22 [facility] KCLVZ2282-78-06 10:20:00 Test Item Value Reference Range Interpretation Comments Calcium Lvl (test code = Calcium Lvl) 8.7 8.5-10.5 [facility] [id number] 10:20:00 Test Item Value Reference Range Interpretation Comments AGAP (test code = AGAP) 16.7 10.0-20.0 [facility] [id number] 10:20:00 Test Item Value Reference Range Interpretation Comments Sodium Lvl (test code = Sodium Lvl) 131 135-145 [facility] [id number] 10:20:00 Test Item Value Reference Range Interpretation Comments CO2 (test code = CO2) 25 24-32 [facility]2019-06-30 10:20:00 Test Item Value Reference Range Interpretation Comments Potassium Lvl (test code = Potassium 3.7 3.5-5.1 Lvl) [facility] [id number] 10:20:00 Test Item Value Reference Range Interpretation Comments Chloride Lvl (test code = Chloride Lvl) 93 95-109 [facility] VDGKZ3662-18-47 10:20:00 Test Item Value Reference Range Interpretation Comments Creatinine Lvl (test code = Creatinine 15.20 0.50-1.40 Lvl) [facility] HospitalCARDIAC OYSVLMU8530-72-92 14:42:00 Test Item Value Reference Range Interpretation Comments Troponin-I (test code 0.03 See_Comment [Auto mated message] The = Troponin-I) system which g enerated this result transmit emerson reference range : <=0.40. The reference r yared was not used to interpr et this result as erinn l/abnormal. [facility] HospitalGram Stain Frktwg5726-08-76 14:25:00 Test Item Value Reference Range Interpretation Comments Gram Stain Report Rare WBC's No Organisms (test code = Gram Seen Stain Report) [facility] HospitalCulture: Aspirate/Body Fluid/Bemaal7915-78-07 14:25:00 Test Item Value Reference Range Interpretation Comments Culture: Aspirate/Body Fluid/Tissue No Growth (test code = Culture: Aspirate/Body Fluid/Tissue) [facility] [id number] 08:16:00 Test Item Value Reference Range Interpretation Comments Vitamin B12 Lvl (test code = Vitamin 043 146-4906 B12 Lvl) [facility] HospitalCARDIAC [id number] 08:16:00 Test Item Value Reference Range Interpretation Comments Troponin-I (test code 0.04 See_Comment [Auto mated message] The = Troponin-I) system which g enerated this result transmit emerson reference range : <=0.40. The reference r yared was not used to interpr et this result as erinn l/abnormal. [facility] HospitalAnkeena Networks [id number] 08:16:00 Test Item Value Reference Range Interpretation Comments Magnesium Lvl (test code = Magnesium 1.8 1.8-2.4 Lvl) [facility]2019-06-29 08:16:00 Test Item Value Reference Range Interpretation Comments eGFR (test code = eGFR) 3 [facility]2019-06-29 08:16:00 Test Item Value Reference Range Interpretation Comments A/G Ratio (test code = A/G Ratio) 0.6 1 0.7-1.6 [facility]2019-06-29 08:16:00 Test Item Value Reference Range Interpretation Comments B/C Ratio (test code = B/C Ratio) 4 1 6-25 [facility]2019-06-29 08:16:00 Test Item Value Reference Range Interpretation Comments Globulin (test code = Globulin) 3.4 2.7-4.2 [facility]2019-06-29 08:16:00 Test Item Value Reference Range Interpretation Comments Bili Total (test code = Bili Total) 0.4 0.2-1.3 [facility]2019-06-29 08:16:00 Test Item Value Reference Range Interpretation Comments AGAP (test code = AGAP) 18.3 10.0-20.0 [facility]2019-06-29 08:16:00 Test Item Value Reference Range Interpretation Comments Chloride Lvl (test code = Chloride Lvl) 93 95-109 [facility]2019-06-29 08:16:00 Test Item Value Reference Range Interpretation Comments CO2 (test code = CO2) 23 24-32 [facility]2019-06-29 08:16:00 Test Item Value Reference Range Interpretation Comments Calcium Lvl (test code = Calcium Lvl) 8.1 8.5-10.5 [facility]2019-06-29 08:16:00 Test Item Value Reference Range Interpretation Comments Glucose Lvl (test code = Glucose Lvl) 57 70-99 [facility]2019-06-29 08:16:00 Test Item Value Reference Range Interpretation Comments BUN (test code = BUN) 60 7-22 [facility]2019-06-29 08:16:00 Test Item Value Reference Range Interpretation Comments Sodium Lvl (test code = Sodium Lvl) 130 135-145 [facility]2019-06-29 08:16:00 Test Item Value Reference Range Interpretation Comments Creatinine Lvl (test code = Creatinine 15.90 0.50-1.40 Lvl) [facility]2019-06-29 08:16:00 Test Item Value Reference Range Interpretation Comments Potassium Lvl (test code = Potassium 4.3 3.5-5.1 Lvl) [facility]2019-06-29 08:16:00 Test Item Value Reference Range Interpretation Comments ALT (test code = ALT) 21 See_Comment [Auto mated message] The system which ge nerated this result transmit emerson reference range : <=65. The reference range was not used to interpr et this result as erinn l/abnormal. [facility]2019-06-29 08:16:00 Test Item Value Reference Range Interpretation Comments Alk Phos (test code = Alk Phos) 76 39-136 [facility]2019-06-29 08:16:00 Test Item Value Reference Range Interpretation Comments AST (test code = AST) 16 See_Comment [Auto mated message] The system which ge nerated this result transmit emerson reference range : <=37. The reference range was not used to interpr et this result as erinn l/abnormal. [facility]2019-06-29 08:16:00 Test Item Value Reference Range Interpretation Comments Total Protein (test code = Total 5.6 6.4-8.4 Protein) [facility]2019-06-29 08:16:00 Test Item Value Reference Range Interpretation Comments Albumin Lvl (test code = Albumin Lvl) 2.2 3.5-5.0 [facility] HospitalNdkwnldAWJOYKWTXB2095-96-99 08:16:00 Test Item Value Reference Range Interpretation Comments PTT (test code = PTT) 41.5 s 22.9-35.8 [facility] HospitalVqpgxnvXDNXOPLEUN6630-30-07 08:16:00 Test Item Value Reference Range Interpretation Comments PT (test code = PT) 14.4 s 12.0-14.7 [facility] HospitalNschidhJMYDDZBNDJ0017-09-14 08:16:00 Test Item Value Reference Range Interpretation Comments INR (test code = INR) 1.14 1 0.85-1.17 [facility] HospitalMfkbmnsNVCLTILPVP0862-87-93 08:16:00 Test Item Value Reference Range Interpretation Comments RDW (test code = RDW) 15.5 11.5-14.5 [facility] HospitalKculcdnBUECEQOOST3198-49-07 08:16:00 Test Item Value Reference Range Interpretation Comments Platelet (test code = Platelet) 139 133-450 [facility] HospitalBbetsazMKNOGVBVKS3256-25-20 08:16:00 Test Item Value Reference Range Interpretation Comments MCH (test code = MCH) 28.7 pg 27.0-31.0 [facility] HospitalRrzmardSAQUVGBOPE4495-82-27 08:16:00 Test Item Value Reference Range Interpretation Comments MCHC (test code = MCHC) 34.2 32.0-36.0 [facility] HospitalGzcupinUCNRHLRVTI4640-98-76 08:16:00 Test Item Value Reference Range Interpretation Comments MCV (test code = MCV) 84.1 80.0-94.0 [facility] HospitalRtulkzvKPIUCDOWBU7025-38-17 08:16:00 Test Item Value Reference Range Interpretation Comments Hgb (test code = Hgb) 11.4 14.0-18.0 [facility] HospitalBadtfthYGDKAPYBAM4827-48-27 08:16:00 Test Item Value Reference Range Interpretation Comments Hct (test code = Hct) 33.2 42.0-54.0 [facility] HospitalMffqzxlMEMDNFXMEU9365-82-28 08:16:00 Test Item Value Reference Range Interpretation Comments WBC (test code = WBC) 10.2 3.7-10.4 [facility] HospitalKsdjjjyRVYTZAUCYN8063-36-03 08:16:00 Test Item Value Reference Range Interpretation Comments RBC (test code = RBC) 3.95 4.70-6.10 [facility] HospitalNjlqxihYWKQESTBXO1546-75-58 08:16:00 Test Item Value Reference Range Interpretation Comments MPV (test code = MPV) 8.3 7.4-10.4 [facility] HospitalXibsuxzKRSSHRRNCK9302-03-13 08:16:00 Test Item Value Reference Range Interpretation Comments Segs (test code = Segs) 84.8 45.0-75.0 [facility] HospitalUxadfbnPYPVCRTDYV2568-15-41 08:16:00 Test Item Value Reference Range Interpretation Comments Basophils # (test code 0.1 See_Comment [Aut omated message] The = Basophils #) system which generated this result tra nsmitted reference range : <=0.2. The reference r yared was not used to int erpret this result as normal/abnormal . [facility] HospitalVnkvewkOTNYPDJUGJ0269-07-13 08:16:00 Test Item Value Reference Range Interpretation Comments Basophils (test code = 0.5 See_Comment [Aut omated message] The Basophils) system which ge nerated this result tra nsmitted reference range : <=1.0. The reference r yared was not used to int erpret this result as normal/abnormal . [facility] HospitalRaebskyDLFATIQZUM1726-31-80 08:16:00 Test Item Value Reference Range Interpretation Comments Eosinophils (test code = 1.2 See_Comment [A utomated message] The Eosinophils) system which ge nerated this result tra nsmitted reference range : <=4.0. The reference r yared was not used to int erpret this result as normal/abnormal . [facility] HospitalFkdvimbJRKKMKKINV4812-56-41 08:16:00 Test Item Value Reference Range Interpretation Comments Monocytes (test code = Monocytes) 6.5 2.0-12.0 [facility] HospitalNxpxnftDJAKFQUSND6207-96-02 08:16:00 Test Item Value Reference Range Interpretation Comments Lymphocytes (test code = Lymphocytes) 7.0 20.0-40.0 [facility] HospitalWypsansQOSFKNARMX6760-74-25 08:16:00 Test Item Value Reference Range Interpretation Comments Eosinophils # (test code 0.1 See_Comment [A utomated message] The = Eosinophils #) system whic h generated this result tra nsmitted reference range : <=0.5. The reference r yared was not used to int erpret this result as normal/abnormal . [facility] HospitalWiqjlffEVGQOQGRHP4041-05-00 08:16:00 Test Item Value Reference Range Interpretation Comments Monocytes # (test code 0.7 See_Comment [Aut omated message] The = Monocytes #) system which generated this result tra nsmitted reference range : <=0.8. The reference r yared was not used to int erpret this result as normal/abnormal . [facility]IxeeygdYFBLNGFJOV1303-91-56 08:16:00 Test Item Value Reference Range Interpretation Comments Lymphocytes # (test code = Lymphocytes 0.7 1.0-5.5 #) [facility] HospitalSnhptnxBAAUPLAQQV7301-16-23 08:16:00 Test Item Value Reference Range Interpretation Comments Neutrophils # (test code = Neutrophils 8.7 1.5-8.1 #) [facility] HospitalCHEM [id number] 04:17:00 Test Item Value Reference Range Interpretation Comments Lactic Acid Lvl (test code = Lactic 0.3 0.5-2.2 Acid Lvl) [facility] HospitalCARDIAC LATEKEJ7260-95-21 02:25:00 Test Item Value Reference Range Interpretation Comments Troponin-I (test code 0.03 See_Comment [Auto mated message] The = Troponin-I) system which g enerated this result transmit emerson reference range : <=0.40. The reference r yared was not used to interpr et this result as erinn l/abnormal. [facility] HospitalGxkhmeoGLQZYK0653-30-51 02:25:00 Test Item Value Reference Range Interpretation Comments CHD Risk (test code = CHD Risk) 3.10 1 4.00-7.30 [facility] HospitalEcmwqptMCQPRT4618-58-69 02:25:00 Test Item Value Reference Range Interpretation Comments VLDL (test code = VLDL) 21 1 [facility]CffgjaoRIHMQS0187-03-34 02:25:00 Test Item Value Reference Range Interpretation Comments HDL (test code = HDL) 58 [facility] KingwoodAysdwknIVKYDQ8912-92-95 02:25:00 Test Item Value Reference Range Interpretation Comments LDL (Calculated) (test code = LDL 101 (Calculated)) [facility] HospitalZqxggxjTHCQXK7298-89-40 02:25:00 Test Item Value Reference Range Interpretation Comments Chol (test code = Chol) 180 [facility] HospitalRepqohrMEFPSB2946-61-90 02:25:00 Test Item Value Reference Range Interpretation Comments Trig (test code = Trig) 103 [facility] QYEVNSSTD9555-88-02 02:25:00 Test Item Value Reference Range Interpretation Comments Hgb A1C (test code = Hgb A1C) 4.0 [facility] HospitalCHEM SHSQG4053-53-26 12:41:00 Test Item Value Reference Range Interpretation Comments Phosphorus (test code = Phosphorus) 6.1 2.5-4.5 [facility]maJmxkaqqLKXXPGLWUDPD1589-07-32 12:41:00 Test Item Value Reference Range Interpretation Comments AGAP (test code = AGAP) 14.8 10.0-20.0 [facility] AlmaTsuknpvENBJHPELGVSK5183-93-77 12:41:00 Test Item Value Reference Range Interpretation Comments eGFR (test code = eGFR) 4 [facility] AlmaTdvsbzxHMPZRFXZUMEN7278-71-43 12:41:00 Test Item Value Reference Range Interpretation Comments CO2 (test code = CO2) 27 24-32 [facility] AlmaBonfccjLIXQGGHGHPSY0846-75-97 12:41:00 Test Item Value Reference Range Interpretation Comments Calcium Lvl (test code = Calcium Lvl) 7.9 8.5-10.5 [facility] AlmaOiierzlQSGODTAUIUQG5075-23-76 12:41:00 Test Item Value Reference Range Interpretation Comments Creatinine Lvl (test code = Creatinine 12.90 0.50-1.40 Lvl) [facility] AlmaWrvrawpDGGYKHRAPZGR3542-88-11 12:41:00 Test Item Value Reference Range Interpretation Comments BUN (test code = BUN) 60 7-22 [facility] AlmaDsfvecoMBNHOQMMLKZA8258-35-99 12:41:00 Test Item Value Reference Range Interpretation Comments Sodium Lvl (test code = Sodium Lvl) 139 135-145 [facility] AlmaMpmvhddEGWMTPEVZKIB9547-80-68 12:41:00 Test Item Value Reference Range Interpretation Comments Glucose Lvl (test code = Glucose Lvl) 93 70-99 [facility] AlmaYzqptbbHWSPLLXRAGDL8483-33-14 12:41:00 Test Item Value Reference Range Interpretation Comments Chloride Lvl (test code = Chloride Lvl) 102 95-109 [facility] AlmaZwibtzcTMWIDRSJPETQ9132-85-89 12:41:00 Test Item Value Reference Range Interpretation Comments Potassium Lvl (test code = Potassium 4.8 3.5-5.1 Lvl) [facility] HospitalGybzmehDHCCWFYDIZ2286-17-08 12:41:00 Test Item Value Reference Range Interpretation Comments MCHC (test code = MCHC) 35.3 32.0-36.0 [facility] HospitalJrnyvzjJFBECVIPOZ5165-82-56 12:41:00 Test Item Value Reference Range Interpretation Comments Hgb (test code = Hgb) 7.8 14.0-18.0 [facility] HospitalZnprlgfOFXYLZGWUG9825-38-73 12:41:00 Test Item Value Reference Range Interpretation Comments Hct (test code = Hct) 22.0 42.0-54.0 [facility] HospitalOekoosgTTRIFTUYQT2944-03-79 12:41:00 Test Item Value Reference Range Interpretation Comments RBC (test code = RBC) 2.68 4.70-6.10 [facility] HospitalUhwafmwNIPIBKYTIY8596-96-54 12:41:00 Test Item Value Reference Range Interpretation Comments WBC (test code = WBC) 4.4 3.7-10.4 [facility]KlsijnbFNHMBXOLAK4648-69-71 12:41:00 Test Item Value Reference Range Interpretation Comments RDW (test code = RDW) 14.5 11.5-14.5 [facility] HospitalSfynxmpPKVMIIAHQM0116-53-75 12:41:00 Test Item Value Reference Range Interpretation Comments MCV (test code = MCV) 82.1 80.0-94.0 [facility] HospitalZrmarmlUGSXMGKDHT6208-72-38 12:41:00 Test Item Value Reference Range Interpretation Comments MCH (test code = MCH) 29.0 pg 27.0-31.0 [facility] HospitalXjmnsetMDGSDVKTNI2790-65-65 12:41:00 Test Item Value Reference Range Interpretation Comments Platelet (test code = Platelet) 128 133-450 [facility] HospitalQzasdahZOXPPHQDAB5988-97-89 12:41:00 Test Item Value Reference Range Interpretation Comments MPV (test code = MPV) 7.3 7.4-10.4 [facility] HospitalPomhgzuIHHCIQUBLO4863-28-24 12:41:00 Test Item Value Reference Range Interpretation Comments Monocytes # (test code 0.4 See_Comment [Aut omated message] The = Monocytes #) system which generated this result tra nsmitted reference range : <=0.8. The reference r yared was not used to int erpret this result as normal/abnormal . [facility] HospitalOjddbrqJREOQAILOE0490-98-09 12:41:00 Test Item Value Reference Range Interpretation Comments Eosinophils # (test code 0.2 See_Comment [A utomated message] The = Eosinophils #) system whic h generated this result tra nsmitted reference range : <=0.5. The reference r yared was not used to int erpret this result as normal/abnormal . [facility] HospitalGyjoceuPSDCCVVZZR4149-52-81 12:41:00 Test Item Value Reference Range Interpretation Comments Monocytes (test code = Monocytes) 9.7 2.0-12.0 [facility] HospitalFzouwnxJTYHCFIBDJ0323-65-88 12:41:00 Test Item Value Reference Range Interpretation Comments Eosinophils (test code = 3.7 See_Comment [A utomated message] The Eosinophils) system which ge nerated this result tra nsmitted reference range : <=4.0. The reference r yared was not used to int erpret this result as normal/abnormal . [facility] HospitalUnjpwlnBMCCATCRET9345-20-60 12:41:00 Test Item Value Reference Range Interpretation Comments Basophils (test code = 0.8 See_Comment [Aut omated message] The Basophils) system which ge nerated this result tra nsmitted reference range : <=1.0. The reference r yared was not used to int erpret this result as normal/abnormal . [facility] HospitalCiycffuXUPAIDEEPP9561-36-95 12:41:00 Test Item Value Reference Range Interpretation Comments Neutrophils # (test code = Neutrophils 3.0 1.5-8.1 #) [facility] HospitalYpoepthCHMNEOSBUN1989-65-93 12:41:00 Test Item Value Reference Range Interpretation Comments Lymphocytes # (test code = Lymphocytes 0.8 1.0-5.5 #) [facility] HospitalMyfqlahLRWKIVWWHM2314-26-28 12:41:00 Test Item Value Reference Range Interpretation Comments Segs (test code = Segs) 67.6 45.0-75.0 [facility] HospitalObpgrteDFCRSAWKLO5814-31-51 12:41:00 Test Item Value Reference Range Interpretation Comments Lymphocytes (test code = Lymphocytes) 18.2 20.0-40.0 [facility]2018-10-14 11:17:00 Test Item Value Reference Range Interpretation Comments Magnesium Lvl (test code = Magnesium 2.5 1.8-2.4 Lvl) [facility]2018-10-14 11:17:00 Test Item Value Reference Range Interpretation Comments Phosphorus (test code = Phosphorus) 8.3 2.5-4.5 [facility] AlmaQzxcephCGLPXBGTREGE4679-87-75 11:17:00 Test Item Value Reference Range Interpretation Comments CO2 (test code = CO2) 22 24-32 [facility] AlmaSbgrjsjSHGTDUQEIMSD1081-05-96 11:17:00 Test Item Value Reference Range Interpretation Comments Calcium Lvl (test code = Calcium Lvl) 7.5 8.5-10.5 [facility] AlmaOoxlcnwJTNUGNVAMMVR1649-81-25 11:17:00 Test Item Value Reference Range Interpretation Comments Chloride Lvl (test code = Chloride Lvl) 98 95-109 [facility] AlmaHbfixrfYXNKYPCTQJYK9177-35-74 11:17:00 Test Item Value Reference Range Interpretation Comments eGFR (test code = eGFR) 2 [facility] AlmaTjedsgrSWENWDSIAWDK0955-30-60 11:17:00 Test Item Value Reference Range Interpretation Comments Creatinine Lvl (test code = Creatinine 19.20 0.50-1.40 Lvl) [facility] AlmaKiwjsnwJCBUJFHZTYZB0992-68-55 11:17:00 Test Item Value Reference Range Interpretation Comments BUN (test code = BUN) 97 7-22 [facility] AlmaTxvudtcSRBBCVGWPSWY2591-07-79 11:17:00 Test Item Value Reference Range Interpretation Comments Potassium Lvl (test code = Potassium 4.7 3.5-5.1 Lvl) [facility] AlmaDzdofjpXVJDVORQKZUL5971-27-74 11:17:00 Test Item Value Reference Range Interpretation Comments Sodium Lvl (test code = Sodium Lvl) 135 135-145 [facility] AlmaQrewyemTVCOBZPCAJEN7943-42-72 11:17:00 Test Item Value Reference Range Interpretation Comments Glucose Lvl (test code = Glucose Lvl) 82 70-99 [facility] AlmaOrgwhegPGDKCNVNQUDP4839-42-63 11:17:00 Test Item Value Reference Range Interpretation Comments AGAP (test code = AGAP) 19.7 10.0-20.0 [facility] HospitalThhucavPQMAQUEPJR5516-49-62 11:17:00 Test Item Value Reference Range Interpretation Comments WBC (test code = WBC) 4.9 3.7-10.4 [facility] HospitalXpqypxmXCZBMWDZMY2072-30-64 11:17:00 Test Item Value Reference Range Interpretation Comments RBC (test code = RBC) 2.85 4.70-6.10 [facility] HospitalFbzufcxJJZCEVCARK5623-52-75 11:17:00 Test Item Value Reference Range Interpretation Comments MCV (test code = MCV) 82.3 80.0-94.0 [facility] HospitalKudjcqlZGKCAAOTEM0047-23-40 11:17:00 Test Item Value Reference Range Interpretation Comments MCH (test code = MCH) 28.8 pg 27.0-31.0 [facility] HospitalTbynoarAKZQFSYTJX0382-78-03 11:17:00 Test Item Value Reference Range Interpretation Comments Hgb (test code = Hgb) 8.2 14.0-18.0 [facility] HospitalUnizwopWNLOGRDYRQ4519-67-99 11:17:00 Test Item Value Reference Range Interpretation Comments Hct (test code = Hct) 23.4 42.0-54.0 [facility] HospitalNjsygzgPSBOKNAWBB0757-18-37 11:17:00 Test Item Value Reference Range Interpretation Comments RDW (test code = RDW) 15.0 11.5-14.5 [facility] HospitalPjhbrybGNACJNSCTG3005-83-70 11:17:00 Test Item Value Reference Range Interpretation Comments MCHC (test code = MCHC) 35.0 32.0-36.0 [facility] HospitalKgkcmrrWUEBHJYWOE5353-66-55 11:17:00 Test Item Value Reference Range Interpretation Comments MPV (test code = MPV) 7.4 7.4-10.4 [facility] HospitalRicmhwaTHOSRKAOGB7974-06-99 11:17:00 Test Item Value Reference Range Interpretation Comments Platelet (test code = Platelet) 140 133-450 [facility] HospitalGshmvjpGOKUZTHVFV6919-12-19 11:17:00 Test Item Value Reference Range Interpretation Comments Lymphocytes (test code = Lymphocytes) 20.3 20.0-40.0 [facility] HospitalJpvugziMBJKZEPCDF2583-88-97 11:17:00 Test Item Value Reference Range Interpretation Comments Basophils (test code = 1.0 See_Comment [Aut omated message] The Basophils) system which ge nerated this result tra nsmitted reference range : <=1.0. The reference r yared was not used to int erpret this result as normal/abnormal . [facility] HospitalJcotbdgQRPQSNBCXA7917-02-72 11:17:00 Test Item Value Reference Range Interpretation Comments Segs (test code = Segs) 67.1 45.0-75.0 [facility] HospitalIrddxuyTCTVWXFKUW7650-05-50 11:17:00 Test Item Value Reference Range Interpretation Comments Neutrophils # (test code = Neutrophils 3.3 1.5-8.1 #) [facility] HospitalVhhgfgwKQNASJYQKA2418-07-77 11:17:00 Test Item Value Reference Range Interpretation Comments Eosinophils (test code = 3.1 See_Comment [A utomated message] The Eosinophils) system which ge nerated this result tra nsmitted reference range : <=4.0. The reference r yared was not used to int erpret this result as normal/abnormal . [facility]YaqmqazNGLFSVXKEW6449-11-60 11:17:00 Test Item Value Reference Range Interpretation Comments Monocytes (test code = Monocytes) 8.5 2.0-12.0 [facility] HospitalCajhdpaGMOBTIYFQC3684-80-38 11:17:00 Test Item Value Reference Range Interpretation Comments Monocytes # (test code 0.4 See_Comment [Aut omated message] The = Monocytes #) system which generated this result tra nsmitted reference range : <=0.8. The reference r yared was not used to int erpret this result as normal/abnormal . [facility] HospitalLpxypeqRCRBYLXTKM6070-48-03 11:17:00 Test Item Value Reference Range Interpretation Comments Lymphocytes # (test code = Lymphocytes 1.0 1.0-5.5 #) [facility] HospitalEambiugGHEHACPBJK1977-77-73 11:17:00 Test Item Value Reference Range Interpretation Comments Eosinophils # (test code 0.1 See_Comment [A utomated message] The = Eosinophils #) system whic h generated this result tra nsmitted reference range : <=0.5. The reference r yared was not used to int erpret this result as normal/abnormal . [facility] HospitalNjtbinbAEUNQMIDDR5706-18-36 11:17:00 Test Item Value Reference Range Interpretation Comments Hep Bs Ag (test code Negative *NA*(07/22/18 = Hep Bs Ag) 6:17 AM) [facility] HospitalCARDIAC CONEJVQ5973-62-70 02:46:00 Test Item Value Reference Range Interpretation Comments proBNP (test code = 83985 See_Comment [Automa emerson message] The proBNP) system which ge nerated this result tra nsmitted reference range : <=125. The reference r yared was not used to int erpret this result as erinn l/abnormal. [facility] UJWAFLE7665-26-27 02:46:00 Test Item Value Reference Range Interpretation Comments Troponin-I (test code no gt See_Comment [Auto mated message] The = Troponin-I) system which g enerated this result transmit emerson reference range : <=0.40. The reference r yared was not used to interpr et this result as erinn l/abnormal. [facility] HospitalCARDI[facility] QAREAKC4792-95-42 02:46:00 Test Item Value Reference Range Interpretation Comments Total CK (test code = Total CK) 91 12-191 [facility] [employer] [facility] [id number] 02:46:00 Test Item Value Reference Range Interpretation Comments Lipase Lvl (test code = Lipase Lvl) 95 73-393 [facility] [id number] 02:46:00 Test Item Value Reference Range Interpretation Comments Globulin (test code = Globulin) 3.2 2.7-4.2 [facility] [id number] 02:46:00 Test Item Value Reference Range Interpretation Comments A/G Ratio (test code = A/G Ratio) 0.9 1 0.7-1.6 [facility] [id number] 02:46:00 Test Item Value Reference Range Interpretation Comments B/C Ratio (test code = B/C Ratio) 5 1 6-25 [facility] [id number] 02:46:00 Test Item Value Reference Range Interpretation Comments AGAP (test code = AGAP) 18.7 10.0-20.0 [facility] [id number] 02:46:00 Test Item Value Reference Range Interpretation Comments eGFR (test code = eGFR) 2 [facility] [id number] 02:46:00 Test Item Value Reference Range Interpretation Comments Calcium Lvl (test code = Calcium Lvl) 7.6 8.5-10.5 [facility] [id number] 02:46:00 Test Item Value Reference Range Interpretation Comments CO2 (test code = CO2) 24 24-32 [facility] [id number] 02:46:00 Test Item Value Reference Range Interpretation Comments Chloride Lvl (test code = Chloride Lvl) 98 95-109 [facility] [id number] 02:46:00 Test Item Value Reference Range Interpretation Comments Potassium Lvl (test code = Potassium 4.7 3.5-5.1 Lvl) [facility] [id number] 02:46:00 Test Item Value Reference Range Interpretation Comments Sodium Lvl (test code = Sodium Lvl) 136 135-145 [facility]2018-10-14 02:46:00 Test Item Value Reference Range Interpretation Comments Albumin Lvl (test code = Albumin Lvl) 2.8 3.5-5.0 [facility]2018-10-14 02:46:00 Test Item Value Reference Range Interpretation Comments ALT (test code = ALT) 13 See_Comment [Auto mated message] The system which ge nerated this result transmit emerson reference range : <=65. The reference range was not used to interpr et this result as erinn l/abnormal. [facility]2018-10-14 02:46:00 Test Item Value Reference Range Interpretation Comments AST (test code = AST) 9 See_Comment [Auto mated message] The system which ge nerated this result transmit emerson reference range : <=37. The reference range was not used to interpr et this result as erinn l/abnormal. [facility]2018-10-14 02:46:00 Test Item Value Reference Range Interpretation Comments Alk Phos (test code = Alk Phos) 57 39-136 [facility]2018-10-14 02:46:00 Test Item Value Reference Range Interpretation Comments Total Protein (test code = Total 6.0 6.4-8.4 Protein) [facility]2018-10-14 02:46:00 Test Item Value Reference Range Interpretation Comments Bili Total (test code = Bili Total) 0.4 0.2-1.3 [facility]2018-10-14 02:46:00 Test Item Value Reference Range Interpretation Comments Creatinine Lvl (test code = Creatinine 18.60 0.50-1.40 Lvl) [facility]2018-10-14 02:46:00 Test Item Value Reference Range Interpretation Comments Glucose Lvl (test code = Glucose Lvl) 89 70-99 [facility]2018-10-14 02:46:00 Test Item Value Reference Range Interpretation Comments BUN (test code = BUN) 95 7-22 [facility] HospitalTjogzvfITQBSPQRHV6629-49-22 02:46:00 Test Item Value Reference Range Interpretation Comments Segs (test code = Segs) 66.2 45.0-75.0 [facility] HospitalYunzgzhLBEVRRZJNP2989-38-65 02:46:00 Test Item Value Reference Range Interpretation Comments Lymphocytes (test code = Lymphocytes) 21.4 20.0-40.0 [facility] HospitalGueibebGFVTNRSYYO9119-27-09 02:46:00 Test Item Value Reference Range Interpretation Comments Monocytes (test code = Monocytes) 7.7 2.0-12.0 [facility] HospitalPpnjeqoNGUCSFVMFF7800-72-75 02:46:00 Test Item Value Reference Range Interpretation Comments Lymphocytes # (test code = Lymphocytes 0.9 1.0-5.5 #) [facility] HospitalIwmsqbxGGJRSXGMQQ0291-57-90 02:46:00 Test Item Value Reference Range Interpretation Comments Basophils (test code = 1.2 See_Comment [Aut omated message] The Basophils) system which ge nerated this result tra nsmitted reference range : <=1.0. The reference r yared was not used to int erpret this result as normal/abnormal . [facility] HospitalQorjvirIHKSWISKPM5813-72-83 02:46:00 Test Item Value Reference Range Interpretation Comments Monocytes # (test code 0.3 See_Comment [Aut omated message] The = Monocytes #) system which generated this result tra nsmitted reference range : <=0.8. The reference r yared was not used to int erpret this result as normal/abnormal . [facility] HospitalGbkrpscJZSWAKDKMF3123-93-71 02:46:00 Test Item Value Reference Range Interpretation Comments Eosinophils # (test code 0.1 See_Comment [A utomated message] The = Eosinophils #) system whic h generated this result tra nsmitted reference range : <=0.5. The reference r yared was not used to int erpret this result as normal/abnormal . [facility] HospitalCqxnluaUADXXASNRB4503-57-28 02:46:00 Test Item Value Reference Range Interpretation Comments Neutrophils # (test code = Neutrophils 2.7 1.5-8.1 #) [facility] HospitalInnkmfjBLVXMPBRGA0659-68-97 02:46:00 Test Item Value Reference Range Interpretation Comments Eosinophils (test code = 3.5 See_Comment [A utomated message] The Eosinophils) system which ge nerated this result tra nsmitted reference range : <=4.0. The reference r yared was not used to int erpret this result as normal/abnormal . [facility] HospitalKwpgpeuXWCRAMJVPJ7985-73-89 02:46:00 Test Item Value Reference Range Interpretation Comments PT (test code = PT) 14.4 s 12.0-14.7 [facility] HospitalKdhpxwzLEPGKUNFRA2541-40-16 02:46:00 Test Item Value Reference Range Interpretation Comments INR (test code = INR) 1.12 1 0.85-1.17 [facility] HospitalBgqnuhwSTWFHHUTBF0709-46-28 02:46:00 Test Item Value Reference Range Interpretation Comments PTT (test code = PTT) 37.1 s 22.9-35.8 [facility] HospitalPkiosivOZNHSYLVYQ8885-83-29 02:46:00 Test Item Value Reference Range Interpretation Comments RDW (test code = RDW) 14.8 11.5-14.5 [facility] HospitalKhzpovmFFTAUHPDUS6601-50-30 02:46:00 Test Item Value Reference Range Interpretation Comments Platelet (test code = Platelet) 143 133-450 [facility] HospitalKrhgywvDIMNFVSNEB7566-25-46 02:46:00 Test Item Value Reference Range Interpretation Comments MPV (test code = MPV) 7.6 7.4-10.4 [facility] HospitalIrxmuubYMADAHIGKF2971-42-85 02:46:00 Test Item Value Reference Range Interpretation Comments RBC (test code = RBC) 2.83 4.70-6.10 [facility] HospitalFidzoojVMKBPAGVTH6294-83-62 02:46:00 Test Item Value Reference Range Interpretation Comments WBC (test code = WBC) 4.1 3.7-10.4 [facility] HospitalOnperkcSTFIUNXCUP8854-54-08 02:46:00 Test Item Value Reference Range Interpretation Comments MCHC (test code = MCHC) 35.2 32.0-36.0 [facility] HospitalJsdrqesDLDJGGHFQJ3602-56-76 02:46:00 Test Item Value Reference Range Interpretation Comments MCH (test code = MCH) 28.8 pg 27.0-31.0 [facility] HospitalMoyytsjVJAATOQDTZ8712-37-96 02:46:00 Test Item Value Reference Range Interpretation Comments Hgb (test code = Hgb) 8.1 14.0-18.0 [facility] HospitalOiuwobhYCFUQFBHLM3040-43-87 02:46:00 Test Item Value Reference Range Interpretation Comments MCV (test code = MCV) 81.9 80.0-94.0 [facility] HospitalBkbbihtAZTHABELJW5017-14-78 02:46:00 Test Item Value Reference Range Interpretation Comments Hct (test code = Hct) 23.2 42.0-54.0 [facility]2018-10-12 22:52:00 Test Item Value Reference Range Interpretation Comments BUN (test code = BUN) 86 7-22 [facility]2018-10-12 22:52:00 Test Item Value Reference Range Interpretation Comments Chloride Lvl (test code = Chloride Lvl) 97 95-109 [facility]2018-10-12 22:52:00 Test Item Value Reference Range Interpretation Comments Potassium Lvl (test code = Potassium 5.2 3.5-5.1 Lvl) [facility]2018-10-12 22:52:00 Test Item Value Reference Range Interpretation Comments Sodium Lvl (test code = Sodium Lvl) 135 135-145 [facility]2018-10-12 22:52:00 Test Item Value Reference Range Interpretation Comments Creatinine Lvl (test code = Creatinine 17.30 0.50-1.40 Lvl) [facility]2018-10-12 22:52:00 Test Item Value Reference Range Interpretation Comments Glucose Lvl (test code = Glucose Lvl) 98 70-99 [facility]2018-10-12 22:52:00 Test Item Value Reference Range Interpretation Comments eGFR (test code = eGFR) 3 [facility]2018-10-12 22:52:00 Test Item Value Reference Range Interpretation Comments Alk Phos (test code = Alk Phos) 70 39-136 [facility]2018-10-12 22:52:00 Test Item Value Reference Range Interpretation Comments AST (test code = AST) 10 See_Comment [Auto mated message] The system which ge nerated this result transmit emerson reference range : <=37. The reference range was not used to interpr et this result as erinn l/abnormal. [facility]2018-10-12 22:52:00 Test Item Value Reference Range Interpretation Comments Bili Total (test code = Bili Total) 0.4 0.2-1.3 [facility]2018-10-12 22:52:00 Test Item Value Reference Range Interpretation Comments Total Protein (test code = Total 6.8 6.4-8.4 Protein) [facility]2018-10-12 22:52:00 Test Item Value Reference Range Interpretation Comments Calcium Lvl (test code = Calcium Lvl) 8.1 8.5-10.5 [facility]2018-10-12 22:52:00 Test Item Value Reference Range Interpretation Comments CO2 (test code = CO2) 24 24-32 [facility]2018-10-12 22:52:00 Test Item Value Reference Range Interpretation Comments ALT (test code = ALT) 19 See_Comment [Auto mated message] The system which ge nerated this result transmit emerson reference range : <=65. The reference range was not used to interpr et this result as erinn l/abnormal. [facility]2018-10-12 22:52:00 Test Item Value Reference Range Interpretation Comments Albumin Lvl (test code = Albumin Lvl) 3.3 3.5-5.0 [facility]2018-10-12 22:52:00 Test Item Value Reference Range Interpretation Comments A/G Ratio (test code = A/G Ratio) 0.9 1 0.7-1.6 [facility]2018-10-12 22:52:00 Test Item Value Reference Range Interpretation Comments AGAP (test code = AGAP) 19.2 10.0-20.0 [facility]2018-10-12 22:52:00 Test Item Value Reference Range Interpretation Comments Globulin (test code = Globulin) 3.5 2.7-4.2 [facility]2018-10-12 22:52:00 Test Item Value Reference Range Interpretation Comments B/C Ratio (test code = B/C Ratio) 5 1 6-25 [facility] HospitalCuszmkyTSFQOTOAXC9011-28-29 22:52:00 Test Item Value Reference Range Interpretation Comments Platelet (test code = Platelet) 184 133-450 [facility] HospitalMzgkmnrUSWHNONLJW8341-86-64 22:52:00 Test Item Value Reference Range Interpretation Comments MPV (test code = MPV) 6.8 7.4-10.4 [facility] HospitalNxjsvsdBAUEHHGTPU0753-17-14 22:52:00 Test Item Value Reference Range Interpretation Comments MCHC (test code = MCHC) 35.4 32.0-36.0 [facility] HospitalWgsuxgrLBNOFFSMAQ6737-79-41 22:52:00 Test Item Value Reference Range Interpretation Comments RDW (test code = RDW) 15.1 11.5-14.5 [facility] HospitalHypwpmpJNEZXBHGPV7342-48-87 22:52:00 Test Item Value Reference Range Interpretation Comments Hct (test code = Hct) 26.1 42.0-54.0 [facility] HospitalJowqqvzRZGSQUWZWS0520-61-96 22:52:00 Test Item Value Reference Range Interpretation Comments MCV (test code = MCV) 81.4 80.0-94.0 [facility] HospitalZvdukboMIBUIZECIF9420-23-96 22:52:00 Test Item Value Reference Range Interpretation Comments MCH (test code = MCH) 28.8 pg 27.0-31.0 [facility] HospitalSbhslhzDXAPIOSYTT5128-85-31 22:52:00 Test Item Value Reference Range Interpretation Comments WBC (test code = WBC) 5.4 3.7-10.4 [facility] HospitalDnrdrzyWIEFSREBZY6182-32-33 22:52:00 Test Item Value Reference Range Interpretation Comments RBC (test code = RBC) 3.20 4.70-6.10 [facility] HospitalFguppouCUZIRCESUI0056-42-41 22:52:00 Test Item Value Reference Range Interpretation Comments Hgb (test code = Hgb) 9.2 14.0-18.0 [facility] HospitalLzwygwsYEWRKZEPXX3295-35-90 22:52:00 Test Item Value Reference Range Interpretation Comments Segs (test code = Segs) 74.0 45.0-75.0 [facility] HospitalTvsliynUROZQZURPN5049-20-43 22:52:00 Test Item Value Reference Range Interpretation Comments Lymphocytes (test code = Lymphocytes) 15.5 20.0-40.0 [id number] 22:52:00 Test Item Value Reference Range Interpretation Comments Monocytes (test code = Monocytes) 6.7 2.0-12.0 [facility] HospitalTimlrozEXQHULZRFL5740-36-57 22:52:00 Test Item Value Reference Range Interpretation Comments Eosinophils (test code = 2.8 See_Comment [A utomated message] The Eosinophils) system which ge nerated this result tra nsmitted reference range : <=4.0. The reference r yared was not used to int erpret this result as normal/abnormal . [facility] HospitalCcckhxnVKSFQAGWVG5905-94-46 22:52:00 Test Item Value Reference Range Interpretation Comments Basophils (test code = 1.0 See_Comment [Aut omated message] The Basophils) system which ge nerated this result tra nsmitted reference range : <=1.0. The reference r yared was not used to int erpret this result as normal/abnormal . [facility] HospitalBewlpjrGXGBRCNGQD5007-69-44 22:52:00 Test Item Value Reference Range Interpretation Comments Neutrophils # (test code = Neutrophils 4.0 1.5-8.1 #) [facility] HospitalKnsfqehTWDYWVJKDM6387-06-30 22:52:00 Test Item Value Reference Range Interpretation Comments Basophils # (test code 0.1 See_Comment [Aut omated message] The = Basophils #) system which generated this result tra nsmitted reference range : <=0.2. The reference r yared was not used to int erpret this result as normal/abnormal . [facility] HospitalOdpzjjgGPQKUBBIJL9268-94-88 22:52:00 Test Item Value Reference Range Interpretation Comments Eosinophils # (test code 0.2 See_Comment [A utomated message] The = Eosinophils #) system whic h generated this result tra nsmitted reference range : <=0.5. The reference r yared was not used to int erpret this result as normal/abnormal . [facility] HospitalFibxdbcVSTLDKLXQD7498-13-47 22:52:00 Test Item Value Reference Range Interpretation Comments Lymphocytes # (test code = Lymphocytes 0.8 1.0-5.5 #) [facility] HospitalVtnifaoQOELWFAWYY5936-06-11 22:52:00 Test Item Value Reference Range Interpretation Comments Monocytes # (test code 0.4 See_Comment [Aut omated message] The = Monocytes #) system which generated this result tra nsmitted reference range : <=0.8. The reference r yared was not used to int erpret this result as normal/abnormal . [facility] [id number] 15:54:00 Test Item Value Reference Range Interpretation Comments Test Name (test code = HLA TYPING RESULTS Test Name) [facility] [id number] 15:20:00 Test Item Value Reference Range Interpretation Comments ABO/RH Confirm (test code = ABO/RH O POS Confirm) [facility] AND [id number] 15:20:00 Test Item Value Reference Range Interpretation Comments UA Renal Epi (test code = UA Renal Epi) RARE [facility] AND [id number] 15:20:00 Test Item Value Reference Range Interpretation Comments UA Urobilinogen (test code = UA <=1.0 mg/dL 0.1-1.0 Urobilinogen) [facility] AND [id number] 15:20:00 Test Item Value Reference Range Interpretation Comments UA Glucose (test code = UA Glucose) 100mg/dL [facility] AND [id number] 15:20:00 Test Item Value Reference Range Interpretation Comments UA Sq Epi (test code = UA Sq Moderate /LPF Epi) [facility] AND [id number] 15:20:00 Test Item Value Reference Range Interpretation Comments UA Leuk Est (test code Small *ABN*(05/23/18 = UA Leuk Est) 10:20 AM) [facility] AND [id number] 15:20:00 Test Item Value Reference Range Interpretation Comments UA Ketones (test code = UA Negative mg/dL Ketones) [facility] AND [id number] 15:20:00 Test Item Value Reference Range Interpretation Comments UA RBC (test code = no gt See_Comment [Automa emerson message] The UA RBC) system which ge nerated this result transmit emerson reference range : <=2. The reference range was not used to interpr et this result as erinn l/abnormal. [facility] AND [id number] 15:20:00 Test Item Value Reference Range Interpretation Comments UA WBC (test code = 9 See_Comment [Automa emerson message] The UA WBC) system which ge nerated this result transmit emerson reference range : <=5. The reference range was not used to interpr et this result as erinn l/abnormal. [facility] AND [id number] 15:20:00 Test Item Value Reference Range Interpretation Comments UA Nitrite (test code Negative (05/23/18 10:20 = UA Nitrite) AM) [facility] AND [id number] 15:20:00 Test Item Value Reference Range Interpretation Comments UA Blood (test code = Trace *ABN*(05/23/18 UA Blood) 10:20 AM) [facility] AND [id number] 15:20:00 Test Item Value Reference Range Interpretation Comments UA Bili (test code = Negative *NA*(05/23/18 UA Bili) 10:20 AM) [facility] AND [id number] 15:20:00 Test Item Value Reference Range Interpretation Comments UA Mucus (test code = UA Mucus) Few /LPF [facility] AND [id number] 15:20:00 Test Item Value Reference Range Interpretation Comments UA Protein (test code = UA >=300 mg/dL Protein) [facility] AND [id number] 15:20:00 Test Item Value Reference Range Interpretation Comments UA pH (test code = UA pH) 6.5 1 5.0-8.0 [facility] AND [id number] 15:20:00 Test Item Value Reference Range Interpretation Comments UA Spec Grav (test code = UA Spec 1.008 1 Grav) [facility] AND [id number] 15:20:00 Test Item Value Reference Range Interpretation Comments UA Turbidity (test code Slight *ABN*(05/23/18 = UA Turbidity) 10:20 AM) [facility] AND [id number] 15:20:00 Test Item Value Reference Range Interpretation Comments UA Color (test code = Yellow *NA*(05/23/18 UA Color) 10:20 AM) [facility]2018-08-15 15:20:00 Test Item Value Reference Range Interpretation Comments U Microalb (test code = U Microalb) 2940.0 [facility]2018-08-15 15:20:00 Test Item Value Reference Range Interpretation Comments U Prot/Creat (test code = U 6.61 1 Prot/Creat) [facility]2018-08-15 15:20:00 Test Item Value Reference Range Interpretation Comments U Creatinine (test code = U Creatinine) 55.00 [facility]2018-08-15 15:20:00 Test Item Value Reference Range Interpretation Comments U Protein (test code = U Protein) 363.8 [facility] [id number] 14:55:00 Test Item Value Reference Range Interpretation Comments % Satur Fe (test code = % Satur Fe) 35 12-57 [facility] [id number] 14:55:00 Test Item Value Reference Range Interpretation Comments UIBC (test code = UIBC) 179 110-370 [facility]2018-08-15 14:55:00 Test Item Value Reference Range Interpretation Comments TIBC (test code = TIBC) 276 228-428 [facility]2018-08-15 14:55:00 Test Item Value Reference Range Interpretation Comments Iron (test code = Iron) 97 45-160 [facility]2018-08-15 14:55:00 Test Item Value Reference Range Interpretation Comments Ferritin Lvl (test code = Ferritin Lvl) 292 22-430 [facility] [id number] 14:55:00 Test Item Value Reference Range Interpretation Comments OP ABORh Int (test code = OP ABORh Int) O POS [facility] [id number] 14:55:00 Test Item Value Reference Range Interpretation Comments Phosphorus (test code = Phosphorus) 8.0 2.5-4.5 [facility] [id number] 14:55:00 Test Item Value Reference Range Interpretation Comments Magnesium Lvl (test code = Magnesium 2.5 1.8-2.4 Lvl) [facility] [id number] 14:55:00 Test Item Value Reference Range Interpretation Comments Vitamin D, 25-OH, Total (test code = 26.3 30.0-100.0 Vitamin D, 25-OH, Total) [facility] [id number] 14:55:00 Test Item Value Reference Range Interpretation Comments Uric Acid (test code = Uric Acid) 3.5 3.8-8.0 [facility] [id number] 14:55:00 Test Item Value Reference Range Interpretation Comments eGFR (test code = eGFR) 7 [facility]2018-08-15 14:55:00 Test Item Value Reference Range Interpretation Comments Alk Phos (test code = Alk Phos) 80 39-136 [facility]2018-08-15 14:55:00 Test Item Value Reference Range Interpretation Comments Bili Total (test code = Bili Total) 0.4 0.2-1.3 [facility]2018-08-15 14:55:00 Test Item Value Reference Range Interpretation Comments Albumin Lvl (test code = Albumin Lvl) 4.3 3.5-5.0 [facility] [id number] 14:55:00 Test Item Value Reference Range Interpretation Comments ALT (test code = ALT) 22 See_Comment [Auto mated message] The system which ge nerated this result transmit emerson reference range : <=65. The reference range was not used to interpr et this result as erinn l/abnormal. [facility]2018-08-15 14:55:00 Test Item Value Reference Range Interpretation Comments Calcium Lvl (test code = Calcium Lvl) 8.8 8.5-10.5 [facility]2018-08-15 14:55:00 Test Item Value Reference Range Interpretation Comments Total Protein (test code = Total 8.1 6.4-8.4 Protein) [facility]2018-08-15 14:55:00 Test Item Value Reference Range Interpretation Comments AST (test code = AST) 12 See_Comment [Auto mated message] The system which ge nerated this result transmit emerson reference range : <=37. The reference range was not used to interpr et this result as erinn l/abnormal. [facility]2018-08-15 14:55:00 Test Item Value Reference Range Interpretation Comments CO2 (test code = CO2) 26 24-32 [facility]2018-08-15 14:55:00 Test Item Value Reference Range Interpretation Comments Chloride Lvl (test code = Chloride Lvl) 97 95-109 [facility]2018-08-15 14:55:00 Test Item Value Reference Range Interpretation Comments Potassium Lvl (test code = Potassium 3.8 3.5-5.1 Lvl) [facility]2018-08-15 14:55:00 Test Item Value Reference Range Interpretation Comments Creatinine Lvl (test code = Creatinine 8.22 0.50-1.40 Lvl) [facility]2018-08-15 14:55:00 Test Item Value Reference Range Interpretation Comments Sodium Lvl (test code = Sodium Lvl) 136 135-145 [facility]2018-08-15 14:55:00 Test Item Value Reference Range Interpretation Comments BUN (test code = BUN) 59 7-22 [facility]2018-08-15 14:55:00 Test Item Value Reference Range Interpretation Comments Glucose Lvl (test code = Glucose Lvl) 98 70-99 [facility]2018-08-15 14:55:00 Test Item Value Reference Range Interpretation Comments Globulin (test code = Globulin) 3.8 2.7-4.2 [facility]annCHE[facility] [id number] 14:55:00 Test Item Value Reference Range Interpretation Comments A/G Ratio (test code = A/G Ratio) 1.1 1 0.7-1.6 [facility] [id number] 14:55:00 Test Item Value Reference Range Interpretation Comments AGAP (test code = AGAP) 16.8 10.0-20.0 [facility] [id number] 14:55:00 Test Item Value Reference Range Interpretation Comments B/C Ratio (test code = B/C Ratio) 7 1 6-25 [facility] [id number] 14:55:00 Test Item Value Reference Range Interpretation Comments Phencyclidine Scr (test Negative (05/23/18 code = Phencyclidine Scr) 9:55 AM) [facility] [id number] 14:55:00 Test Item Value Reference Range Interpretation Comments 6-Acetylmor Scr (test Negative (05/23/18 9:55 code = 6-Acetylmor AM) Scr) [facility] [id number] 14:55:00 Test Item Value Reference Range Interpretation Comments Opiate Scr (test code Positive *ABN*(05/23/18 = Opiate Scr) 9:55 AM) [facility] [id number] 14:55:00 Test Item Value Reference Range Interpretation Comments Methadone Scr (test Negative (05/23/18 9:55 code = Methadone Scr) AM) [facility] [id number] 14:55:00 Test Item Value Reference Range Interpretation Comments Rosa M Scr (test code = Negative (05/23/18 9:55 Rosa M Scr) AM) [facility] [id number] 14:55:00 Test Item Value Reference Range Interpretation Comments Cutoff Values (test See Note (05/23/18 9:55 code = Cutoff Values) AM) [facility] [id number] 14:55:00 Test Item Value Reference Range Interpretation Comments Cocaine Scr (test code Negative (05/23/18 9:55 = Cocaine Scr) AM) [facility] [id number] 14:55:00 Test Item Value Reference Range Interpretation Comments Amph Scr (test code = Negative (05/23/18 9:55 Amph Scr) AM) [facility] [id number] 14:55:00 Test Item Value Reference Range Interpretation Comments Cannab Scr (test code Negative (05/23/18 9:55 = Cannab Scr) AM) [facility] [id number] 14:55:00 Test Item Value Reference Range Interpretation Comments Benzodiaz Scr (test Positive *ABN*(05/23/18 code = Benzodiaz Scr) 9:55 AM) [facility] [id number] 14:55:00 Test Item Value Reference Range Interpretation Comments Opiate Qnt (test code = See Note 2(05/23/18 Opiate Qnt) 9:55 AM) [facility] [id number] 14:55:00 Test Item Value Reference Range Interpretation Comments Benzodiaz Qnt (test code See Note 1(05/23/18 = Benzodiaz Qnt) 9:55 AM) [facility] H[id number] 14:55:00 Test Item Value Reference Range Interpretation Comments Eosinophils # (test code 0.3 See_Comment [A utomated message] The = Eosinophils #) system whic h generated this result tra nsmitted reference range : <=0.5. The reference r yared was not used to int erpret this result as normal/abnormal . [facility] H[id number] 14:55:00 Test Item Value Reference Range Interpretation Comments Basophils # (test code 0.1 See_Comment [Aut omated message] The = Basophils #) system which generated this result tra nsmitted reference range : <=0.2. The reference r yared was not used to int erpret this result as normal/abnormal . [facility]IvgvsffWEOQOLGACA8504-58-55 14:55:00 Test Item Value Reference Range Interpretation Comments Neutrophils # (test code = Neutrophils 3.9 1.5-8.1 #) [facility] HospitalRcukmvaLDJQANAFPH3565-03-34 14:55:00 Test Item Value Reference Range Interpretation Comments Lymphocytes # (test code = Lymphocytes 1.3 1.0-5.5 #) [facility] H[id number] 14:55:00 Test Item Value Reference Range Interpretation Comments Monocytes # (test code 0.5 See_Comment [Aut omated message] The = Monocytes #) system which generated this result tra nsmitted reference range : <=0.8. The reference r yared was not used to int erpret this result as normal/abnormal . [facility] HospitalKazsxkqKDCBCSSKJQ3546-06-49 14:55:00 Test Item Value Reference Range Interpretation Comments Basophils (test code = 0.9 See_Comment [Aut omated message] The Basophils) system which ge nerated this result tra nsmitted reference range : <=1.0. The reference r yared was not used to int erpret this result as normal/abnormal . [facility] Hospit[id number] 14:55:00 Test Item Value Reference Range Interpretation Comments Monocytes (test code = Monocytes) 7.7 2.0-12.0 [facility] H[id number] 14:55:00 Test Item Value Reference Range Interpretation Comments Eosinophils (test code = 4.3 See_Comment [A utomated message] The Eosinophils) system which ge nerated this result tra nsmitted reference range : <=4.0. The reference r yared was not used to int erpret this result as normal/abnormal . [facility] Hosp[id number] 14:55:00 Test Item Value Reference Range Interpretation Comments Lymphocytes (test code = Lymphocytes) 22.0 20.0-40.0 [facility] HospitalRgxexmdQAURRWPQXV4514-61-96 14:55:00 Test Item Value Reference Range Interpretation Comments Segs (test code = Segs) 65.1 45.0-75.0 [facility] HospitalCquuyaxCIQAUYFVOW2683-70-31 14:55:00 Test Item Value Reference Range Interpretation Comments INR (test code = INR) 1.06 1 0.85-1.17 [facility] HospitalTpawmqqTBGSTFJZIT5463-56-89 14:55:00 Test Item Value Reference Range Interpretation Comments PT (test code = PT) 13.8 s 12.0-14.7 [facility] HospitalJgwgpaxCNUIUYXNEX4762-77-92 14:55:00 Test Item Value Reference Range Interpretation Comments PTT (test code = PTT) 35.0 s 22.9-35.8 [facility] HospitalXjanjlgNCSUGIQRYF4679-00-26 14:55:00 Test Item Value Reference Range Interpretation Comments RDW (test code = RDW) 18.1 11.5-14.5 [facility] HospitalBhlczwnTCOPRQRMWI8118-22-00 14:55:00 Test Item Value Reference Range Interpretation Comments MPV (test code = MPV) 8.0 7.4-10.4 [facility] HospitalGxqmyavPOQOKWWYAE5956-51-13 14:55:00 Test Item Value Reference Range Interpretation Comments Platelet (test code = Platelet) 228 133-450 [facility] HospitalUdzafynYPRFDRPTWO7030-93-14 14:55:00 Test Item Value Reference Range Interpretation Comments MCHC (test code = MCHC) 33.3 32.0-36.0 [facility] HospitalIkxcbnzYNLWIXMJRN8893-52-26 14:55:00 Test Item Value Reference Range Interpretation Comments RBC (test code = RBC) 4.54 4.70-6.10 [facility] HospitalDunxxazCWWKHNNUQZ3017-41-78 14:55:00 Test Item Value Reference Range Interpretation Comments WBC (test code = WBC) 6.1 3.7-10.4 [facility] HospitalShcfglzIXSZFBWTIO7730-13-69 14:55:00 Test Item Value Reference Range Interpretation Comments MCV (test code = MCV) 80.9 80.0-94.0 [facility] HospitalMgmearsHCJIFHCXOH8935-77-93 14:55:00 Test Item Value Reference Range Interpretation Comments Hct (test code = Hct) 36.7 42.0-54.0 [facility] HospitalSptumxlTAJOBMWEPY6503-54-59 14:55:00 Test Item Value Reference Range Interpretation Comments MCH (test code = MCH) 27.0 pg 27.0-31.0 [facility] HospitalNwnkhqtROAIMQOIET1292-83-06 14:55:00 Test Item Value Reference Range Interpretation Comments Hgb (test code = Hgb) 12.2 14.0-18.0 [facility]CxtgtmjZFMXNDYMAH4744-98-00 14:55:00 Test Item Value Reference Range Interpretation Comments Varicella IgG (test code = Varicella no gt IgG) [facility] CampusCaxudrnARXTBVVUPG1666-28-21 14:55:00 Test Item Value Reference Range Interpretation Comments Varicella IgM (test no gt See_Comment [Automa emerson message] The code = Varicella IgM) system which generated this result tra nsmitted reference range : <=0.90. The reference r yared was not used to int erpret this result as normal/abnormal . [facility] CampusZoutjccYUXGRKAXVJ9000-37-41 14:55:00 Test Item Value Reference Range Interpretation Comments Treponemal Ab (test code Non-Reactive = Treponemal Ab) *NA*(05/23/18 9:55 AM) [facility] CampusLjcvtxtHZWUBJEHTS7126-45-86 14:55:00 Test Item Value Reference Range Interpretation Comments T-Spot.TB (test code Negative (05/23/18 9:55 = T-Spot.TB) AM) [facility] CampusYvyvmqtKSGTWGBKVD9827-66-28 14:55:00 Test Item Value Reference Range Interpretation Comments Gamma % (test code = Gamma %) 18.2 11.1-18.7 [facility] CampusIqxcavgOOTQTKCJTQ1074-80-90 14:55:00 Test Item Value Reference Range Interpretation Comments Alpha 2 % (test code = Alpha 2 %) 7.8 7.0-11.9 [facility] CampusCjdngzjEKHJZMITGY0414-85-83 14:55:00 Test Item Value Reference Range Interpretation Comments Beta % (test code = Beta %) 9.5 7.8-13.7 [facility] CampusIzeljezRMGNVAYIGT4163-31-27 14:55:00 Test Item Value Reference Range Interpretation Comments Albumin % (test code = Albumin %) 60.9 55.8-66.1 [facility] CampusUydexnhMZXHDDSHAQ1883-43-35 14:55:00 Test Item Value Reference Range Interpretation Comments Alpha 1 % (test code = Alpha 1 %) 3.6 2.8-4.9 [facility] CampusJyljhlrHVBRTIXDSN8395-65-82 14:55:00 Test Item Value Reference Range Interpretation Comments Gamma Glob (test code = Gamma Glob) 1.47 0.71-1.57 [facility] CampusZztnixmLGEBYVNLUR3700-64-42 14:55:00 Test Item Value Reference Range Interpretation Comments Tot Prot (SPE) (test code = Tot Prot 8.1 6.4-8.4 (SPE)) [facility] CampusAvuqnybUZEMGYHMOV4056-19-42 14:55:00 Test Item Value Reference Range Interpretation Comments Beta Glob (test code = Beta Glob) 0.77 0.50-1.15 [facility] CampusZvwpkpiPLREIFHWQP5935-85-51 14:55:00 Test Item Value Reference Range Interpretation Comments SPE Interp (test Capillary electrophoresis code = SPE Interp) does not demonstrate any features consistent with the presence of a monoclonal gammopathy. Total protein level is within the reference range. Serum protein electrophoresis shows normal distribution of the main protein fractions. Serum protein electrophoresis shows no pathologic changes. Corresponding serum protein immunofixation electrophoresis does not show evidence of a monoclonal gammopathy (see a separate report). I have personally reviewed the test results and concur with the resident's interpretation. CPT 88517-XE [facility] CampusQzemmbkGNOGWWRQTA0787-78-32 14:55:00 Test Item Value Reference Range Interpretation Comments Albumin (SPE) (test code = Albumin 4.93 3.57-5.55 (SPE)) [facility] CampusAimlpaoGMNIAZDCZM8046-38-33 14:55:00 Test Item Value Reference Range Interpretation Comments Alpha 1 Glob (test code = Alpha 1 Glob) 0.29 0.18-0.41 [facility] CampusHrlhahtIFYLSYTPGM0218-39-03 14:55:00 Test Item Value Reference Range Interpretation Comments Alpha 2 Glob (test code = Alpha 2 Glob) 0.63 0.45-1.00 [facility] CampusXtvijdhCONNIRDTHZ4337-05-32 14:55:00 Test Item Value Reference Range Interpretation Comments [place]/Lambda [employer] Ch[employer] Ratio 2.18 0.26-1.65 (test code = [place]/[employer] Ratio) [facility] CampusIhrdrslFYWQSTJBOA8650-04-56 14:55:00 Test Item Value Reference Range Interpretation Comments Lambda Free [employer] Chains (test code = 89.85 5.70-26.30 L[employer] Chains) [facility] CampusAfkwqzuCYDOBIGTFV5846-04-80 14:55:00 Test Item Value Reference Range Interpretation Comments [place] [employer] (test code = 196.11 3.30-19.40 [place] [employer]) [facility] CampusQosnmdkCNGDMLELUO4988-43-93 14:55:00 Test Item Value Reference Range Interpretation Comments HSV 1 IgG (test code = HSV 1 IgG) no gt [facility] CampusBrwrnuuTLSBBPSEDT6343-70-21 14:55:00 Test Item Value Reference Range Interpretation Comments HSV 2 IgG (test code = HSV 2 IgG) no gt [facility] [facility]LymwlvcJQONUJVMMU7080-49-19 14:55:00 Test Item Value Reference Range Interpretation Comments CMV IgM (test code = CMV IgM) 0.2 [facility] CampusNyptotnVJYVLODYPV9891-38-05 14:55:00 Test Item Value Reference Range Interpretation Comments CMV IgG (test code = Reactive *ABN*(05/23/18 CMV IgG) 9:55 AM) [facility] CampusFdxyjrfZKZCQIFYTN1083-60-55 14:55:00 Test Item Value Reference Range Interpretation Comments EBV VCA IgG (test code = EBV VCA IgG) no gt [facility] HospitalUbldowvSOENLPFUFG3829-83-40 14:55:00 Test Item Value Reference Range Interpretation Comments Hep Bs Ab (test code = Hep Bs Ab) 4.5 [facility] HospitalRmktteaJFVUHIXCDC2242-57-22 14:55:00 Test Item Value Reference Range Interpretation Comments Hep C Ab (test code = Negative *NA*(05/23/18 Hep C Ab) 9:55 AM) [facility] HospitalGwampplCJOYISKSKM8737-76-00 14:55:00 Test Item Value Reference Range Interpretation Comments EBV VCA IgM (test code = EBV VCA IgM) no gt [facility] HospitalEjjpjqiRMIITIVWFP8837-44-69 14:55:00 Test Item Value Reference Range Interpretation Comments Hep Bs Ag (test code Negative *NA*(05/23/18 = Hep Bs Ag) 9:55 AM) [facility] CampusRrjmnxqQMCEPTTFIR8904-28-83 14:55:00 Test Item Value Reference Range Interpretation Comments Hep B Core Ab (test Negative *NA*(05/23/18 code = Hep B Core Ab) 9:55 AM) [facility] CampusLbnaosjWJALONXCTL2811-53-75 14:55:00 Test Item Value Reference Range Interpretation Comments HIV Ag/Ab 4th Gen Negative *NA*(05/23/18 (test code = HIV 9:55 AM) Ag/Ab 4th Gen) [facility] CampusAlltcmmJEXTVUNJEX1496-23-89 14:55:00 Test Item Value Reference Range Interpretation Comments MIKE Ser Interp The serum immunofixation (test code = MIKE electrophoresis Ser Interp) demonstrates polyclonal distribution of immunoglobulins. No monoclonal immunoglobulins are detected. The electronic medical record has been reviewed for relevant history. I have personally reviewed the test results and concur with the resident's interpretation. CPT 85645-SK [facility] HospitalVawldziRVKEQDFQXR5330-67-46 14:55:00 Test Item Value Reference Range Interpretation Comments MIKE Ser Pattern Diffusely staining (test code = MIKE immunoreactivity is present Ser Pattern) in the IgG, IgA, IgM, kappa, and lambda lanes in a normal polyclonal distribution. No monoclonal immunoglobulins are detected. [facility] HospitalLjmjtduQKPTOS8373-01-23 14:55:00 Test Item Value Reference Range Interpretation Comments VLDL (test code = VLDL) 30 1 [facility] HospitalZrlhsvoTQRZXY7595-23-71 14:55:00 Test Item Value Reference Range Interpretation Comments LDL (Calculated) (test code = LDL 74 (Calculated)) [facility]IgiuthnODBPLT0938-72-09 14:55:00 Test Item Value Reference Range Interpretation Comments Chol (test code = Chol) 176 [facility] HospitalDjwehcgDDRJRF1137-37-29 14:55:00 Test Item Value Reference Range Interpretation Comments HDL (test code = HDL) 72 [facility] KingwoodMlfbtqaDLXVUA5687-58-29 14:55:00 Test Item Value Reference Range Interpretation Comments Trig (test code = Trig) 152 [facility] HospitalTtllecbETRGDC7676-78-72 14:55:00 Test Item Value Reference Range Interpretation Comments CHD Risk (test code = CHD Risk) 2.44 1 4.00-7.30 [facility] HospitalPARASITOLOGY - [id number] 14:55:00 Test Item Value Reference Range Interpretation Comments Strongyloides Antibodies (test code Negative = Strongyloides Antibodies) [facility] HospitalPARATHYROID [id number] 14:55:00 Test Item Value Reference Range Interpretation Comments PTH Intact (test code = PTH Intact) 286.0 18.4-80.1 [facility] [id number] 14:55:00 Test Item Value Reference Range Interpretation Comments PSA (test code = PSA) 0.46 See_Comment [Auto mated message] The system which ge nerated this result transmit emerson reference range : <=4.00. The reference r yared was not used to interpr et this result as erinn l/abnormal. [facility] MHQISDEPJ4064-43-73 14:55:00 Test Item Value Reference Range Interpretation Comments Hgb A1C (test code = Hgb A1C) 4.9 [facility] [id number] 14:55:00 Test Item Value Reference Range Interpretation Comments Nicotine Lvl (test code = None Detected Nicotine Lvl) [facility] OZYQMXFFG0127-48-82 14:55:00 Test Item Value Reference Range Interpretation Comments Cotinine Lvl (test code = None Detected Cotinine Lvl) [facility] HospitalCARDIAC [id number] 12:03:00 Test Item Value Reference Range Interpretation Comments Troponin-I (test code 0.04 See_Comment [Auto mated message] The = Troponin-I) system which g enerated this result transmit emerson reference range : <=0.40. The reference r yared was not used to interpr et this result as erinn l/abnormal. [facility] [employer] [id number] 12:03:00 Test Item Value Reference Range Interpretation Comments Total CK (test code = Total CK) 26 191 [facility] [employer] [id number] 07:54:00 Test Item Value Reference Range Interpretation Comments Troponin-I (test code 0.02 See_Comment [Auto mated message] The = Troponin-I) system which g enerated this result transmit emerson reference range : <=0.40. The reference r yared was not used to interpr et this result as erinn l/abnormal. [facility] [employer]2018-07-08 07:54:00 Test Item Value Reference Range Interpretation Comments Total CK (test code = Total CK) 31 191 [facility] [employer] [id number] 07:54:00 Test Item Value Reference Range Interpretation Comments Magnesium Lvl (test code = Magnesium 1.9 1.8-2.4 Lvl) [facility] [employer] [id number] 07:54:00 Test Item Value Reference Range Interpretation Comments B/C Ratio (test code = B/C Ratio) 6 1 6-25 [facility] [employer] [id number] 07:54:00 Test Item Value Reference Range Interpretation Comments Albumin Lvl (test code = Albumin Lvl) 3.3 3.5-5.0 [facility] [employer] [id number] 07:54:00 Test Item Value Reference Range Interpretation Comments A/G Ratio (test code = A/G Ratio) 0.9 1 0.7-1.6 [facility] [employer] [id number] 07:54:00 Test Item Value Reference Range Interpretation Comments Total Protein (test code = Total 7.1 6.4-8.4 Protein) [facility] [employer] [id number] 07:54:00 Test Item Value Reference Range Interpretation Comments Globulin (test code = Globulin) 3.8 2.7-4.2 [facility] [employer] [id number] 07:54:00 Test Item Value Reference Range Interpretation Comments ALT (test code = ALT) 18 See_Comment [Auto mated message] The system which ge nerated this result transmit emerson reference range : <=65. The reference range was not used to interpr et this result as erinn l/abnormal. [facility]2018-07-08 07:54:00 Test Item Value Reference Range Interpretation Comments AST (test code = AST) 14 See_Comment [Auto mated message] The system which ge nerated this result transmit emerson reference range : <=37. The reference range was not used to interpr et this result as erinn l/abnormal. [facility]2018-07-08 07:54:00 Test Item Value Reference Range Interpretation Comments Alk Phos (test code = Alk Phos) 82 39-136 [facility]2018-07-08 07:54:00 Test Item Value Reference Range Interpretation Comments Bili Total (test code = Bili Total) 0.5 0.2-1.3 [facility]2018-07-08 07:54:00 Test Item Value Reference Range Interpretation Comments eGFR (test code = eGFR) 10 [facility]2018-07-08 07:54:00 Test Item Value Reference Range Interpretation Comments Potassium Lvl (test code = Potassium 3.2 3.5-5.1 Lvl) [facility]2018-07-08 07:54:00 Test Item Value Reference Range Interpretation Comments Chloride Lvl (test code = Chloride Lvl) 103 95-109 [facility]2018-07-08 07:54:00 Test Item Value Reference Range Interpretation Comments Glucose Lvl (test code = Glucose Lvl) 95 70-99 [facility]2018-07-08 07:54:00 Test Item Value Reference Range Interpretation Comments BUN (test code = BUN) 34 7-22 [facility]2018-07-08 07:54:00 Test Item Value Reference Range Interpretation Comments Creatinine Lvl (test code = Creatinine 5.83 0.50-1.40 Lvl) [facility]2018-07-08 07:54:00 Test Item Value Reference Range Interpretation Comments Sodium Lvl (test code = Sodium Lvl) 138 135-145 [facility]2018-07-08 07:54:00 Test Item Value Reference Range Interpretation Comments CO2 (test code = CO2) 23 24-32 [facility]2018-07-08 07:54:00 Test Item Value Reference Range Interpretation Comments AGAP (test code = AGAP) 15.2 10.0-20.0 [facility]2018-07-08 07:54:00 Test Item Value Reference Range Interpretation Comments Calcium Lvl (test code = Calcium Lvl) 8.5 8.5-10.5 [facility]2018-07-08 07:54:00 Test Item Value Reference Range Interpretation Comments Phosphorus (test code = Phosphorus) 4.2 2.5-4.5 [facility]LsdwxprDNBPKAHGPJ3862-97-86 07:54:00 Test Item Value Reference Range Interpretation Comments Lymphocytes # (test code = Lymphocytes 1.5 1.0-5.5 #) [facility] HospitalZsuwvndBIGXYPZOOI9801-36-17 07:54:00 Test Item Value Reference Range Interpretation Comments Monocytes # (test code 0.5 See_Comment [Aut omated message] The = Monocytes #) system which generated this result tra nsmitted reference range : <=0.8. The reference r yared was not used to int erpret this result as normal/abnormal . [facility] HospitalIiqfbtyZJAJCHSQAT4597-33-29 07:54:00 Test Item Value Reference Range Interpretation Comments Basophils (test code = 1.0 See_Comment [Aut omated message] The Basophils) system which ge nerated this result tra nsmitted reference range : <=1.0. The reference r yared was not used to int erpret this result as normal/abnormal . [facility] HospitalGscedeuEOPIMWWUGL4513-08-72 07:54:00 Test Item Value Reference Range Interpretation Comments Segs-Bands # (test code = Segs-Bands #) 3.5 1.5-8.1 [facility] HospitalEbulebnYFUOIXAWJL8043-74-52 07:54:00 Test Item Value Reference Range Interpretation Comments Basophils # (test code 0.1 See_Comment [Aut omated message] The = Basophils #) system which generated this result tra nsmitted reference range : <=0.2. The reference r yared was not used to int erpret this result as normal/abnormal . [facility] HospitalTcdfrvzANAJGGSUPR3873-82-25 07:54:00 Test Item Value Reference Range Interpretation Comments Eosinophils # (test code 0.2 See_Comment [A utomated message] The = Eosinophils #) system whic h generated this result tra nsmitted reference range : <=0.5. The reference r yared was not used to int erpret this result as normal/abnormal . [facility] HospitalZfeprpwGCEWBQKAGK8845-68-41 07:54:00 Test Item Value Reference Range Interpretation Comments Lymphocytes (test code = Lymphocytes) 26.7 20.0-40.0 [facility] HospitalLulfuxhRJUTSSPGHL1219-05-47 07:54:00 Test Item Value Reference Range Interpretation Comments Segs (test code = Segs) 61.0 45.0-75.0 [facility] HospitalTfgssxfSMOLFLDOUM9789-84-35 07:54:00 Test Item Value Reference Range Interpretation Comments Monocytes (test code = Monocytes) 8.0 2.0-12.0 [facility] HospitalSpsbefsFBJCDDFKZG4037-45-73 07:54:00 Test Item Value Reference Range Interpretation Comments Eosinophils (test code = 3.3 See_Comment [A utomated message] The Eosinophils) system which ge nerated this result tra nsmitted reference range : <=4.0. The reference r yared was not used to int erpret this result as normal/abnormal . [facility] HospitalIwbkgbyLIBUWZCTZX6894-69-73 07:54:00 Test Item Value Reference Range Interpretation Comments WBC (test code = WBC) 5.7 3.7-10.4 [facility] HospitalInpksmbPRGPGDKIFF8895-63-09 07:54:00 Test Item Value Reference Range Interpretation Comments RBC (test code = RBC) 4.48 4.70-6.10 [facility] HospitalDvaroemZXBAHSPXLY1506-55-59 07:54:00 Test Item Value Reference Range Interpretation Comments RDW (test code = RDW) 17.7 11.5-14.5 [facility] HospitalKfeocmiTIKESVVACS8405-02-49 07:54:00 Test Item Value Reference Range Interpretation Comments Platelet (test code = Platelet) 215 133-450 [facility] HospitalPmeycwdQKEJGTERSE4329-27-70 07:54:00 Test Item Value Reference Range Interpretation Comments MPV (test code = MPV) 7.2 7.4-10.4 [facility] HospitalUobefiiKDZTCWVFVK6874-39-72 07:54:00 Test Item Value Reference Range Interpretation Comments Hgb (test code = Hgb) 11.6 14.0-18.0 [facility] HospitalBpgsiinOEBSDJDADE1026-87-82 07:54:00 Test Item Value Reference Range Interpretation Comments Hct (test code = Hct) 35.5 42.0-54.0 [facility] LhpvbfvWVDNKNESMD9639-43-58 07:54:00 Test Item Value Reference Range Interpretation Comments MCHC (test code = MCHC) 32.6 32.0-36.0 [facility] AduvbfwOLWIUSTUOA1229-17-75 07:54:00 Test Item Value Reference Range Interpretation Comments MCV (test code = MCV) 79.2 80.0-94.0 [facility] JptvrjoNVIMDUMSKO8477-96-14 07:54:00 Test Item Value Reference Range Interpretation Comments MCH (test code = MCH) 25.8 pg 27.0-31.0 [facility] [id number] 02:58:00 Test Item Value Reference Range Interpretation Comments Troponin-I (test code no gt See_Comment [Auto mated message] The = Troponin-I) system which g enerated this result transmit emerson reference range : <=0.40. The reference r yared was not used to interpr et this result as erinn l/abnormal. [facility] [employer]2018-07-08 00:12:00 Test Item Value Reference Range Interpretation Comments proBNP (test code = 80669 See_Comment [Automa emerson message] The proBNP) system which ge nerated this result tra nsmitted reference range : <=125. The reference r yared was not used to int erpret this result as erinn l/abnormal. [facility] [employer] [id number] 00:12:00 Test Item Value Reference Range Interpretation Comments Total CK (test code = Total CK) 37 12-191 [facility] [employer] [id number] 00:12:00 Test Item Value Reference Range Interpretation Comments CK MB (test code = CK MB) 1.0 0.5-3.6 [facility] [employer] [id number] 00:12:00 Test Item Value Reference Range Interpretation Comments CK MB Index (test 2.7 1 See_Comment [Automate d message] The code = CK MB Index) system w the [facility] generated this result transmit emerson reference range : <=2.5. The reference range was not used to interpr et this result as erinn l/abnormal. [facility] [employer] [id number] 00:12:00 Test Item Value Reference Range Interpretation Comments eGFR (test code = eGFR) 12 [facility]2018-07-08 00:12:00 Test Item Value Reference Range Interpretation Comments Alk Phos (test code = Alk Phos) 88 39-136 [facility]2018-07-08 00:12:00 Test Item Value Reference Range Interpretation Comments AST (test code = AST) 14 See_Comment [Auto mated message] The system which ge nerated this result transmit emerson reference range : <=37. The reference range was not used to interpr et this result as erinn l/abnormal. [facility]2018-07-08 00:12:00 Test Item Value Reference Range Interpretation Comments Total Protein (test code = Total 7.4 6.4-8.4 Protein) [facility]2018-07-08 00:12:00 Test Item Value Reference Range Interpretation Comments Bili Total (test code = Bili Total) 0.5 0.2-1.3 [facility]2018-07-08 00:12:00 Test Item Value Reference Range Interpretation Comments ALT (test code = ALT) 17 See_Comment [Auto mated message] The system which ge nerated this result transmit emerson reference range : <=65. The reference range was not used to interpr et this result as erinn l/abnormal. [facility]2018-07-08 00:12:00 Test Item Value Reference Range Interpretation Comments Albumin Lvl (test code = Albumin Lvl) 3.2 3.5-5.0 [facility]2018-07-08 00:12:00 Test Item Value Reference Range Interpretation Comments Calcium Lvl (test code = Calcium Lvl) 8.1 8.5-10.5 [facility]2018-07-08 00:12:00 Test Item Value Reference Range Interpretation Comments Sodium Lvl (test code = Sodium Lvl) 137 135-145 [facility]2018-07-08 00:12:00 Test Item Value Reference Range Interpretation Comments CO2 (test code = CO2) 26 24-32 [facility]2018-07-08 00:12:00 Test Item Value Reference Range Interpretation Comments Creatinine Lvl (test code = Creatinine 4.94 0.50-1.40 Lvl) [facility]2018-07-08 00:12:00 Test Item Value Reference Range Interpretation Comments BUN (test code = BUN) 24 7-22 [facility]2018-07-08 00:12:00 Test Item Value Reference Range Interpretation Comments Glucose Lvl (test code = Glucose Lvl) 156 70-99 [facility]2018-07-08 00:12:00 Test Item Value Reference Range Interpretation Comments B/C Ratio (test code = B/C Ratio) 5 1 6-25 [facility]2018-07-08 00:12:00 Test Item Value Reference Range Interpretation Comments AGAP (test code = AGAP) 12.3 10.0-20.0 [facility]2018-07-08 00:12:00 Test Item Value Reference Range Interpretation Comments A/G Ratio (test code = A/G Ratio) 0.8 1 0.7-1.6 [place] [id number] 00:12:00 Test Item Value Reference Range Interpretation Comments Globulin (test code = Globulin) 4.2 2.7-4.2 [facility]2018-07-08 00:12:00 Test Item Value Reference Range Interpretation Comments Chloride Lvl (test code = Chloride Lvl) 102 95-109 [facility]2018-07-08 00:12:00 Test Item Value Reference Range Interpretation Comments Potassium Lvl (test code = Potassium 3.3 3.5-5.1 Lvl) [facility] HospitalJodqedsDDAIUDQFHR6188-65-72 00:12:00 Test Item Value Reference Range Interpretation Comments WBC (test code = WBC) 5.0 3.7-10.4 [facility] HospitalNkmnbdsPYHTOPNZVN3114-96-05 00:12:00 Test Item Value Reference Range Interpretation Comments RDW (test code = RDW) 17.6 11.5-14.5 [facility] HospitalLbeknjbINPNKAJLBK2114-90-85 00:12:00 Test Item Value Reference Range Interpretation Comments MCHC (test code = MCHC) 33.5 32.0-36.0 [facility] HospitalCnwpncyZMAHWYXZDO6555-59-55 00:12:00 Test Item Value Reference Range Interpretation Comments MPV (test code = MPV) 7.3 7.4-10.4 [facility] HospitalAkzodjfKBOZEYEGSB3506-78-27 00:12:00 Test Item Value Reference Range Interpretation Comments RBC (test code = RBC) 4.25 4.70-6.10 [facility] HospitalGnyhgzpCDOXCRTDZR6443-49-48 00:12:00 Test Item Value Reference Range Interpretation Comments MCH (test code = MCH) 26.0 pg 27.0-31.0 [facility] HospitalZalwmfuTFVFIXNWYL5197-59-27 00:12:00 Test Item Value Reference Range Interpretation Comments MCV (test code = MCV) 77.5 80.0-94.0 [facility] HospitalOlhawaeOLKCTTTDSG3090-50-84 00:12:00 Test Item Value Reference Range Interpretation Comments Hct (test code = Hct) 33.0 42.0-54.0 [facility] HospitalVhdcooeOOPPYHBWGB6067-58-76 00:12:00 Test Item Value Reference Range Interpretation Comments Hgb (test code = Hgb) 11.1 14.0-18.0 [facility] HospitalWsdzbbyVLFSQSUZOP3070-14-39 00:12:00 Test Item Value Reference Range Interpretation Comments Platelet (test code = Platelet) 208 133-450 [facility] HospitalLemrbrvROJPRGKZGK6031-14-56 00:12:00 Test Item Value Reference Range Interpretation Comments Segs-Bands # (test code = Segs-Bands #) 3.6 1.5-8.1 [facility] HospitalPxriabaBLUGZLHPAS6339-12-36 00:12:00 Test Item Value Reference Range Interpretation Comments Lymphocytes # (test code = Lymphocytes 0.9 1.0-5.5 #) [facility] HospitalNjmrfogMOAFCPRSKO4722-04-56 00:12:00 Test Item Value Reference Range Interpretation Comments Basophils # (test code 0.1 See_Comment [Aut omated message] The = Basophils #) system which generated this result tra nsmitted reference range : <=0.2. The reference r yared was not used to int erpret this result as normal/abnormal . [facility] HospitalEynqiayTWERCPIFWX2595-15-02 00:12:00 Test Item Value Reference Range Interpretation Comments Eosinophils # (test code 0.1 See_Comment [A utomated message] The = Eosinophils #) system whic h generated this result tra nsmitted reference range : <=0.5. The reference r yared was not used to int erpret this result as normal/abnormal . [facility] HospitalIyaibgmOINDFTKPON0833-10-60 00:12:00 Test Item Value Reference Range Interpretation Comments Monocytes # (test code 0.4 See_Comment [Aut omated message] The = Monocytes #) system which generated this result tra nsmitted reference range : <=0.8. The reference r yared was not used to int erpret this result as normal/abnormal . [facility] HospitalLvrrlhaVVTTQBCJXQ3449-41-43 00:12:00 Test Item Value Reference Range Interpretation Comments Basophils (test code = 1.0 See_Comment [Aut omated message] The Basophils) system which ge nerated this result tra nsmitted reference range : <=1.0. The reference r yared was not used to int erpret this result as normal/abnormal . [facility] HospitalJqiegbnKNXUSJRFWZ2084-83-58 00:12:00 Test Item Value Reference Range Interpretation Comments Eosinophils (test code = 2.0 See_Comment [A utomated message] The Eosinophils) system which ge nerated this result tra nsmitted reference range : <=4.0. The reference r yared was not used to int erpret this result as normal/abnormal . [facility] HospitalKtwnzzxKNFODUIUWN6056-49-30 00:12:00 Test Item Value Reference Range Interpretation Comments Microcyte (test code = 1+ *ABN*(04/14/18 7:12 Microcyte) PM) [facility] HospitalUzkjkihYAQXEQTKMQ3541-01-51 00:12:00 Test Item Value Reference Range Interpretation Comments Plt Morph (test code = Normal (04/14/18 7:12 PM) Plt Morph) [facility] HospitalWyldagnHNFGOBNKTQ4052-34-45 00:12:00 Test Item Value Reference Range Interpretation Comments Lymphocytes (test code = Lymphocytes) 17.2 20.0-40.0 [facility] HospitalBtfhlbeRPUFWNQJHF9764-52-53 00:12:00 Test Item Value Reference Range Interpretation Comments Segs (test code = Segs) 72.3 45.0-75.0 [facility] HospitalKobdecgOTELFRIXMA3458-12-55 00:12:00 Test Item Value Reference Range Interpretation Comments Monocytes (test code = Monocytes) 7.5 2.0-12.0 [facility] HospitalAxkhejlCKEAKHXNUV2039-27-76 12:10:00 Test Item Value Reference Range Interpretation Comments Vanco Lvl (test code = Vanco Lvl) 17.4 [facility] HospitalCHEM [id number] 08:01:00 Test Item Value Reference Range Interpretation Comments Magnesium Lvl (test code = Magnesium 2.1 1.8-2.4 Lvl) [facility] HospitalCHEM [id number] 08:01:00 Test Item Value Reference Range Interpretation Comments Phosphorus (test code = Phosphorus) 5.6 2.5-4.5 [facility] AlmaMorobvvXYHHXWAAJURK1839-58-42 08:01:00 Test Item Value Reference Range Interpretation Comments AGAP (test code = AGAP) 17.3 10.0-20.0 [facility] AlmaBxrpvydMJBAFZVMCEMI0377-67-53 08:01:00 Test Item Value Reference Range Interpretation Comments eGFR (test code = eGFR) 5 [facility] AlmaFqdhvnkCXZWRPMDNOQC8194-51-42 08:01:00 Test Item Value Reference Range Interpretation Comments Chloride Lvl (test code = Chloride Lvl) 94 95-109 [facility] AlmaJxgdiiaVGZNXCZSABCT9859-92-58 08:01:00 Test Item Value Reference Range Interpretation Comments CO2 (test code = CO2) 24 24-32 [facility] AlmaXzsihhxJQHKSLNDLUDZ1352-41-01 08:01:00 Test Item Value Reference Range Interpretation Comments Calcium Lvl (test code = Calcium Lvl) 8.3 8.5-10.5 [facility] AlmaYqqwutzHZKAQBXDDTIN4297-70-21 08:01:00 Test Item Value Reference Range Interpretation Comments Glucose Lvl (test code = Glucose Lvl) 120 70-99 [facility] AlmaHmoupzdEZAMZECTPAMO0012-75-81 08:01:00 Test Item Value Reference Range Interpretation Comments Potassium Lvl (test code = Potassium 4.3 3.5-5.1 Lvl) [facility] AlmaGwshzglEGKMYHTIVOIJ9208-79-10 08:01:00 Test Item Value Reference Range Interpretation Comments Sodium Lvl (test code = Sodium Lvl) 131 135-145 [facility] AlmaYdbkqspPLFQWUXFQTPG8649-04-04 08:01:00 Test Item Value Reference Range Interpretation Comments BUN (test code = BUN) 55 7-22 [facility] AlmaKjsubwlIYJWIKDTJNWH5574-83-39 08:01:00 Test Item Value Reference Range Interpretation Comments Creatinine Lvl (test code = Creatinine 9.62 0.50-1.40 Lvl) [facility]XNNY[facility]-32 08:01:00 Test Item Value Reference Range Interpretation Comments Basophils (test code = 0.3 See_Comment [Aut omated message] The Basophils) system which ge nerated this result tra nsmitted reference range : <=1.0. The reference r yared was not used to int erpret this result as normal/abnormal . [facility]OyziekuHCVTVBBTAG6970-08-09 08:01:00 Test Item Value Reference Range Interpretation Comments Monocytes (test code = Monocytes) 10.9 2.0-12.0 [facility] HospitalXomtmmnWVXCRPTEAZ3463-76-33 08:01:00 Test Item Value Reference Range Interpretation Comments Segs (test code = Segs) 78.7 45.0-75.0 [facility] HospitalTesnlbuYDPWJPUJOZ5607-45-96 08:01:00 Test Item Value Reference Range Interpretation Comments Lymphocytes (test code = Lymphocytes) 8.8 20.0-40.0 [facility] HospitalXvqwajxVEEENGAKWW6081-61-68 08:01:00 Test Item Value Reference Range Interpretation Comments Eosinophils # (test code 0.1 See_Comment [A utomated message] The = Eosinophils #) system whic h generated this result tra nsmitted reference range : <=0.5. The reference r yared was not used to int erpret this result as normal/abnormal . [facility] HospitalZbyjxiaKXTUPGCSKG5120-60-02 08:01:00 Test Item Value Reference Range Interpretation Comments Monocytes # (test code 0.9 See_Comment [Aut omated message] The = Monocytes #) system which generated this result tra nsmitted reference range : <=0.8. The reference r yared was not used to int erpret this result as normal/abnormal . [facility] HospitalWdtsqaiXDFCSRDJVW0825-84-84 08:01:00 Test Item Value Reference Range Interpretation Comments Eosinophils (test code = 1.3 See_Comment [A utomated message] The Eosinophils) system which ge nerated this result tra nsmitted reference range : <=4.0. The reference r yared was not used to int erpret this result as normal/abnormal . [facility] HospitalTkblndzZPQHZKGHVL0579-67-26 08:01:00 Test Item Value Reference Range Interpretation Comments Microcyte (test code = 1+ *ABN*(03/19/18 Microcyte) 3:01 AM) [facility] HospitalSapvshoBUXROUEPRN8039-38-99 08:01:00 Test Item Value Reference Range Interpretation Comments Segs-Bands # (test code = Segs-Bands #) 6.5 1.5-8.1 [facility] HospitalDairyuqFZMQGFWXOK4181-39-91 08:01:00 Test Item Value Reference Range Interpretation Comments Lymphocytes # (test code = Lymphocytes 0.7 1.0-5.5 #) [facility] HospitalMufbearOLVEOESVXH4575-51-72 08:01:00 Test Item Value Reference Range Interpretation Comments MPV (test code = MPV) 7.9 7.4-10.4 [facility] HospitalBsmqxuaVWGFEPIMLX9993-43-95 08:01:00 Test Item Value Reference Range Interpretation Comments Platelet (test code = Platelet) 240 133-450 [facility] HospitalLfaicmkCLDGEHIGHB1432-16-30 08:01:00 Test Item Value Reference Range Interpretation Comments MCH (test code = MCH) 26.4 pg 27.0-31.0 [facility] HospitalPtselgwRGFNBZYQDP3392-64-67 08:01:00 Test Item Value Reference Range Interpretation Comments RDW (test code = RDW) 15.4 11.5-14.5 [facility] HospitalRcekmslYZCMKAMXNX8181-50-39 08:01:00 Test Item Value Reference Range Interpretation Comments MCHC (test code = MCHC) 34.2 32.0-36.0 [facility] HospitalAcrlufuYQSQIPNGKA3613-40-52 08:01:00 Test Item Value Reference Range Interpretation Comments RBC (test code = RBC) 2.99 4.70-6.10 [facility] HospitalXhraergSXQOCAANCK9352-85-19 08:01:00 Test Item Value Reference Range Interpretation Comments WBC (test code = WBC) 8.2 3.7-10.4 [facility] HospitalXcakdqrKDWLMILXNW6161-89-47 08:01:00 Test Item Value Reference Range Interpretation Comments Hct (test code = Hct) 23.1 42.0-54.0 [facility] HospitalBlqjmlcRAKUNCZMSK2229-04-67 08:01:00 Test Item Value Reference Range Interpretation Comments Hgb (test code = Hgb) 7.9 14.0-18.0 [facility] HospitalXhdxmtzJMHBMYDGCL3149-72-24 08:01:00 Test Item Value Reference Range Interpretation Comments MCV (test code = MCV) 77.1 80.0-94.0 [facility]2018-06-10 08:29:00 Test Item Value Reference Range Interpretation Comments Magnesium Lvl (test code = Magnesium 2.3 1.8-2.4 Lvl) [facility]2018-06-10 08:29:00 Test Item Value Reference Range Interpretation Comments eGFR (test code = eGFR) 6 [facility]2018-06-10 08:29:00 Test Item Value Reference Range Interpretation Comments Bili Total (test code = Bili Total) 0.4 0.2-1.3 [facility]2018-06-10 08:29:00 Test Item Value Reference Range Interpretation Comments Potassium Lvl (test code = Potassium 4.0 3.5-5.1 Lvl) [facility]2018-06-10 08:29:00 Test Item Value Reference Range Interpretation Comments Glucose Lvl (test code = Glucose Lvl) 105 70-99 [facility]2018-06-10 08:29:00 Test Item Value Reference Range Interpretation Comments BUN (test code = BUN) 50 7-22 [facility]2018-06-10 08:29:00 Test Item Value Reference Range Interpretation Comments Sodium Lvl (test code = Sodium Lvl) 133 135-145 [facility]2018-06-10 08:29:00 Test Item Value Reference Range Interpretation Comments Creatinine Lvl (test code = Creatinine 8.40 0.50-1.40 Lvl) [facility]2018-06-10 08:29:00 Test Item Value Reference Range Interpretation Comments Chloride Lvl (test code = Chloride Lvl) 97 95-109 [facility]2018-06-10 08:29:00 Test Item Value Reference Range Interpretation Comments Alk Phos (test code = Alk Phos) 104 39-136 [facility]2018-06-10 08:29:00 Test Item Value Reference Range Interpretation Comments Albumin Lvl (test code = Albumin Lvl) 2.7 3.5-5.0 [facility]2018-06-10 08:29:00 Test Item Value Reference Range Interpretation Comments Total Protein (test code = Total 6.9 6.4-8.4 Protein) [facility]2018-06-10 08:29:00 Test Item Value Reference Range Interpretation Comments Calcium Lvl (test code = Calcium Lvl) 8.0 8.5-10.5 [facility]2018-06-10 08:29:00 Test Item Value Reference Range Interpretation Comments CO2 (test code = CO2) 26 24-32 [facility]2018-06-10 08:29:00 Test Item Value Reference Range Interpretation Comments AST (test code = AST) 9 See_Comment [Auto mated message] The system which ge nerated this result transmit emerson reference range : <=37. The reference range was not used to interpr et this result as erinn l/abnormal. [place] 849228-06-10 08:29:00 Test Item Value Reference Range Interpretation Comments ALT (test code = ALT) 12 See_Comment [Auto mated message] The system which ge nerated this result transmit emerson reference range : <=65. The reference range was not used to interpr et this result as erinn l/abnormal. [place] 849228-06-10 08:29:00 Test Item Value Reference Range Interpretation Comments B/C Ratio (test code = B/C Ratio) 6 1 6-25 [place] 849228-06-10 08:29:00 Test Item Value Reference Range Interpretation Comments AGAP (test code = AGAP) 14.0 10.0-20.0 [place] 849228-06-10 08:29:00 Test Item Value Reference Range Interpretation Comments Globulin (test code = Globulin) 4.2 2.7-4.2 [place] 849228-06-10 08:29:00 Test Item Value Reference Range Interpretation Comments A/G Ratio (test code = A/G Ratio) 0.6 1 0.7-1.6 [place] 849228-06-10 08:29:00 Test Item Value Reference Range Interpretation Comments Phosphorus (test code = Phosphorus) 5.7 2.5-4.5 [facility] HospitalPidccbpDKACHCRFLQ3063-44-91 08:29:00 Test Item Value Reference Range Interpretation Comments INR (test code = INR) 1.23 1 0.85-1.17 [place] 603968-06-10 08:29:00 Test Item Value Reference Range Interpretation Comments PTT (test code = PTT) 42.0 s 22.9-35.8 [place] 603968-06-10 08:29:00 Test Item Value Reference Range Interpretation Comments PT (test code = PT) 15.6 s 12.0-14.7 [place] 603968-06-10 08:29:00 Test Item Value Reference Range Interpretation Comments Microcyte (test code = 1+ *ABN*(03/18/18 Microcyte) 3:29 AM) [facility] HospitalSabyebnKYPEFZUCDJ1084-53-71 08:29:00 Test Item Value Reference Range Interpretation Comments Monocytes # (test code 1.0 See_Comment [Aut omated message] The = Monocytes #) system which generated this result tra nsmitted reference range : <=0.8. The reference r yared was not used to int erpret this result as normal/abnormal . [facility] HospitalYkgpzhsXTKMDTWGEF6469-86-66 08:29:00 Test Item Value Reference Range Interpretation Comments Eosinophils # (test code 0.1 See_Comment [A utomated message] The = Eosinophils #) system whic h generated this result tra nsmitted reference range : <=0.5. The reference r yared was not used to int erpret this result as normal/abnormal . [facility] HospitalExwvuxeBDWUMLOIJJ5120-64-18 08:29:00 Test Item Value Reference Range Interpretation Comments Lymphocytes # (test code = Lymphocytes 0.9 1.0-5.5 #) [facility] HospitalMxduwmfIEHLTKMQTM6087-10-26 08:29:00 Test Item Value Reference Range Interpretation Comments Segs-Bands # (test code = Segs-Bands #) 5.0 1.5-8.1 [facility] HospitalHmhmesqPNUBMNETJE5991-86-42 08:29:00 Test Item Value Reference Range Interpretation Comments Eosinophils (test code = 1.6 See_Comment [A utomated message] The Eosinophils) system which ge nerated this result tra nsmitted reference range : <=4.0. The reference r yared was not used to int erpret this result as normal/abnormal . [facility] HospitalRovgwraOUEHXDGYRY6117-52-67 08:29:00 Test Item Value Reference Range Interpretation Comments Lymphocytes (test code = Lymphocytes) 13.3 20.0-40.0 [facility] HospitalPjjwyorWZGQURWJCQ4791-09-62 08:29:00 Test Item Value Reference Range Interpretation Comments Basophils (test code = 0.5 See_Comment [Aut omated message] The Basophils) system which ge nerated this result tra nsmitted reference range : <=1.0. The reference r yared was not used to int erpret this result as normal/abnormal . [facility] HospitalFzkuiujJHOMNIHTVR2242-17-16 08:29:00 Test Item Value Reference Range Interpretation Comments Monocytes (test code = Monocytes) 13.9 2.0-12.0 [facility] HospitalFavgpsyTFUKWBHUQU7772-17-89 08:29:00 Test Item Value Reference Range Interpretation Comments Segs (test code = Segs) 70.7 45.0-75.0 [facility] HospitalXvdfrfjDLIKBPGQXV7855-58-54 08:29:00 Test Item Value Reference Range Interpretation Comments Platelet (test code = Platelet) 217 133-450 [facility] HospitalLcyhpcyULOEPPOXJO8304-39-05 08:29:00 Test Item Value Reference Range Interpretation Comments MPV (test code = MPV) 7.9 7.4-10.4 [facility] HospitalNsfioroULDAKLJVBQ5331-94-00 08:29:00 Test Item Value Reference Range Interpretation Comments MCHC (test code = MCHC) 33.8 32.0-36.0 [facility] HospitalGbqbwffBIJLQMUSXS8428-18-62 08:29:00 Test Item Value Reference Range Interpretation Comments RDW (test code = RDW) 15.0 11.5-14.5 [facility] HospitalTaunjpsNMFKGTCOPG6295-81-97 08:29:00 Test Item Value Reference Range Interpretation Comments Hct (test code = Hct) 21.8 42.0-54.0 [facility] HospitalYiongvsUEAAZLNOQL6442-45-89 08:29:00 Test Item Value Reference Range Interpretation Comments MCV (test code = MCV) 77.9 80.0-94.0 [facility] HospitalRzgdqjyPDVYMTGYQV3814-81-78 08:29:00 Test Item Value Reference Range Interpretation Comments MCH (test code = MCH) 26.3 pg 27.0-31.0 [facility] HospitalTvczplwRHHDWKIIVG5398-59-97 08:29:00 Test Item Value Reference Range Interpretation Comments RBC (test code = RBC) 2.80 4.70-6.10 [facility] HospitalOwuxnooIOMSANUIEK2604-28-27 08:29:00 Test Item Value Reference Range Interpretation Comments Hgb (test code = Hgb) 7.4 14.0-18.0 [facility] HospitalHlwiaqyFRKNCRUWNO7287-58-46 08:29:00 Test Item Value Reference Range Interpretation Comments WBC (test code = WBC) 7.1 3.7-10.4 [facility] HospitalNcotpcsZDBARYPJYB9534-75-03 21:57:00 Test Item Value Reference Range Interpretation Comments Vanco Lvl (test code = Vanco Lvl) 18.3 [facility] [employer]CMannCHEM ZKWBG3951-20-39 13:00:00 Test Item Value Reference Range Interpretation Comments Lactic Acid Lvl (test code = Lactic 0.3 0.5-2.2 Acid Lvl) [facility]ElxeksmYVCZJVAMZJ3572-52-96 13:00:00 Test Item Value Reference Range Interpretation Comments Hep Bs Ag (test code Negative *NA*(03/17/18 = Hep Bs Ag) 8:00 AM) [facility] [employer]CMannCHEM WZFJO8315-85-72 11:05:00 Test Item Value Reference Range Interpretation Comments Lactic Acid Lvl (test code = Lactic 0.3 0.5-2.2 Acid Lvl) [facility]woodannCARDIAC PHRXLHP3233-04-82 08:09:00 Test Item Value Reference Range Interpretation Comments CK MB Index (test 1.2 1 See_Comment [Automate d message] The code = CK MB Index) system w the [facility] generated this result transmit emerson reference range : <=2.5. The reference range was not used to interpr et this result as erinn l/abnormal. [facility] [employer]CMannCARFunideliaAC LUWVHRO9256-38-57 08:09:00 Test Item Value Reference Range Interpretation Comments Total CK (test code = Total CK) 122 12-191 [facility]woodReg[facility] KGQZWYR1058-67-29 08:09:00 Test Item Value Reference Range Interpretation Comments proBNP (test code = 36120 See_Comment [Automa emerson message] The proBNP) system which ge nerated this result tra nsmitted reference range : <=125. The reference r yared was not used to int erpret this result as erinn l/abnormal. [facility] [employer] LNOTMDU7195-76-47 08:09:00 Test Item Value Reference Range Interpretation Comments CK MB (test code = CK MB) 1.5 0.5-3.6 [facility]woodannCARAnaconda Pharma QZPGENP4302-19-06 08:09:00 Test Item Value Reference Range Interpretation Comments Troponin-I (test code no gt See_Comment [Auto mated message] The = Troponin-I) system which g enerated this result transmit emerson reference range : <=0.40. The reference r yared was not used to interpr et this result as erinn l/abnormal. [facility] [employer] [id number] 08:09:00 Test Item Value Reference Range Interpretation Comments Ammonia (test code = Ammonia) 33.0 [facility]2018-06-09 08:09:00 Test Item Value Reference Range Interpretation Comments eGFR (test code = eGFR) 4 [facility]2018-06-09 08:09:00 Test Item Value Reference Range Interpretation Comments Alk Phos (test code = Alk Phos) 89 39-136 [facility]2018-06-09 08:09:00 Test Item Value Reference Range Interpretation Comments Chloride Lvl (test code = Chloride Lvl) 93 95-109 [facility]2018-06-09 08:09:00 Test Item Value Reference Range Interpretation Comments Globulin (test code = Globulin) 4.1 2.7-4.2 [place] 849228-06-09 08:09:00 Test Item Value Reference Range Interpretation Comments A/G Ratio (test code = A/G Ratio) 0.7 1 0.7-1.6 [place] 849228-06-09 08:09:00 Test Item Value Reference Range Interpretation Comments B/C Ratio (test code = B/C Ratio) 7 1 6-25 [facility]2018-06-09 08:09:00 Test Item Value Reference Range Interpretation Comments AGAP (test code = AGAP) 20.4 10.0-20.0 [facility]2018-06-09 08:09:00 Test Item Value Reference Range Interpretation Comments Bili Total (test code = Bili Total) 0.4 0.2-1.3 [facility]2018-06-09 08:09:00 Test Item Value Reference Range Interpretation Comments AST (test code = AST) 11 See_Comment [Auto mated message] The system which ge nerated this result transmit emerson reference range : <=37. The reference range was not used to interpr et this result as erinn l/abnormal. [facility]2018-06-09 08:09:00 Test Item Value Reference Range Interpretation Comments ALT (test code = ALT) 10 See_Comment [Auto mated message] The system which ge nerated this result transmit emerson reference range : <=65. The reference range was not used to interpr et this result as erinn l/abnormal. [place] 849228-06-09 08:09:00 Test Item Value Reference Range Interpretation Comments Albumin Lvl (test code = Albumin Lvl) 2.7 3.5-5.0 [facility]2018-06-09 08:09:00 Test Item Value Reference Range Interpretation Comments CO2 (test code = CO2) 21 24-32 [facility]2018-06-09 08:09:00 Test Item Value Reference Range Interpretation Comments Total Protein (test code = Total 6.8 6.4-8.4 Protein) [facility]2018-06-09 08:09:00 Test Item Value Reference Range Interpretation Comments Calcium Lvl (test code = Calcium Lvl) 7.5 8.5-10.5 [facility]2018-06-09 08:09:00 Test Item Value Reference Range Interpretation Comments Sodium Lvl (test code = Sodium Lvl) 130 135-145 [facility]2018-06-09 08:09:00 Test Item Value Reference Range Interpretation Comments Potassium Lvl (test code = Potassium 4.4 3.5-5.1 Lvl) [facility]2018-06-09 08:09:00 Test Item Value Reference Range Interpretation Comments Creatinine Lvl (test code = Creatinine 12.50 0.50-1.40 Lvl) [facility]2018-06-09 08:09:00 Test Item Value Reference Range Interpretation Comments BUN (test code = BUN) 85 7-22 [facility]2018-06-09 08:09:00 Test Item Value Reference Range Interpretation Comments Glucose Lvl (test code = Glucose Lvl) 172 70-99 [facility]2018-06-09 08:09:00 Test Item Value Reference Range Interpretation Comments Magnesium Lvl (test code = Magnesium 1.9 1.8-2.4 Lvl) [facility]2018-06-09 08:09:00 Test Item Value Reference Range Interpretation Comments Lipase Lvl (test code = Lipase Lvl) 65 73-393 [facility]2018-06-09 08:09:00 Test Item Value Reference Range Interpretation Comments Phosphorus (test code = Phosphorus) 7.5 2.5-4.5 [facility]QczadruOLVJFMGIHS0012-24-29 08:09:00 Test Item Value Reference Range Interpretation Comments Monocytes # (test code 0.8 See_Comment [Aut omated message] The = Monocytes #) system which generated this result tra nsmitted reference range : <=0.8. The reference r yared was not used to int erpret this result as normal/abnormal . [facility] HospitalBqgpknkBIQZHSZDFN1780-69-45 08:09:00 Test Item Value Reference Range Interpretation Comments Eosinophils (test code = 0.5 See_Comment [A utomated message] The Eosinophils) system which ge nerated this result tra nsmitted reference range : <=4.0. The reference r yared was not used to int erpret this result as normal/abnormal . [facility] HospitalLeboulhCOUIQOSLFX4180-14-20 08:09:00 Test Item Value Reference Range Interpretation Comments Lymphocytes # (test code = Lymphocytes 0.7 1.0-5.5 #) [facility] HospitalOvfyjjuPBQMMWNWIN8171-97-27 08:09:00 Test Item Value Reference Range Interpretation Comments Basophils (test code = 0.5 See_Comment [Aut omated message] The Basophils) system which ge nerated this result tra nsmitted reference range : <=1.0. The reference r yared was not used to int erpret this result as normal/abnormal . [facility] HospitalBosvnnlZUKXZQKXJR9933-61-70 08:09:00 Test Item Value Reference Range Interpretation Comments Segs-Bands # (test code = Segs-Bands #) 7.4 1.5-8.1 [facility] HospitalSqcfzvkMFROVPNUIP3142-58-24 08:09:00 Test Item Value Reference Range Interpretation Comments Microcyte (test code = 1+ *ABN*(03/17/18 3:09 Microcyte) AM) [facility] HospitalHnxlhyzDZYWEBYFIO1073-33-65 08:09:00 Test Item Value Reference Range Interpretation Comments Lymphocytes (test code = Lymphocytes) 7.7 20.0-40.0 [facility] HospitalZoowzkmSDHDYLFHIE0128-55-41 08:09:00 Test Item Value Reference Range Interpretation Comments Monocytes (test code = Monocytes) 9.3 2.0-12.0 [facility] HospitalDrzobcxTWJZFPFMMU8531-45-66 08:09:00 Test Item Value Reference Range Interpretation Comments Segs (test code = Segs) 82.0 45.0-75.0 [facility] HospitalPqvkpgfKIAOPUJTBR6615-08-20 08:09:00 Test Item Value Reference Range Interpretation Comments INR (test code = INR) 1.26 1 0.85-1.17 [facility] HospitalZvptyvnRLORNBUGOU0593-51-24 08:09:00 Test Item Value Reference Range Interpretation Comments PT (test code = PT) 15.9 s 12.0-14.7 [facility] HospitalGpnuewhBUKACQPQMH2677-50-22 08:09:00 Test Item Value Reference Range Interpretation Comments MCH (test code = MCH) 26.4 pg 27.0-31.0 [facility] HospitalRgjhsgeCOYOMBYDRM3915-06-65 08:09:00 Test Item Value Reference Range Interpretation Comments MCV (test code = MCV) 77.8 80.0-94.0 [facility] HospitalDumhiokITRILBWLTA9803-79-57 08:09:00 Test Item Value Reference Range Interpretation Comments Hct (test code = Hct) 22.2 42.0-54.0 [facility] HospitalNowvgwuXTVVLFDADL1170-17-66 08:09:00 Test Item Value Reference Range Interpretation Comments Hgb (test code = Hgb) 7.5 14.0-18.0 [facility] HospitalGmzbtreJCTQYETAXW6965-91-26 08:09:00 Test Item Value Reference Range Interpretation Comments WBC (test code = WBC) 9.0 3.7-10.4 [facility] HospitalQgkkhraFKEKRATWVV7249-61-60 08:09:00 Test Item Value Reference Range Interpretation Comments RBC (test code = RBC) 2.86 4.70-6.10 [facility] HospitalBgxwdnyWSXEGPLKBW4754-55-96 08:09:00 Test Item Value Reference Range Interpretation Comments MPV (test code = MPV) 7.4 7.4-10.4 [facility] [facility]kidzgtGDIPGLOKVE6792-65-04 08:09:00 Test Item Value Reference Range Interpretation Comments Platelet (test code = Platelet) 220 133-450 [facility]QggozxcPNJXOIUOFC4952-43-41 08:09:00 Test Item Value Reference Range Interpretation Comments RDW (test code = RDW) 15.1 11.5-14.5 [facility] HospitalHiabosfLOQHHQAMJZ7388-25-01 08:09:00 Test Item Value Reference Range Interpretation Comments MCHC (test code = MCHC) 34.0 32.0-36.0 [facility] Hospital[facility]ARDI[facility] [id number] 00:37:00 Test Item Value Reference Range Interpretation Comments CK MB Index (test 1.7 1 See_Comment [Automate d message] The code = CK MB Index) system w hich generated this result transmit emerson reference range : <=2.5. The reference range was not used to interpr et this result as erinn l/abnormal. [facility] [employer]2018-04-17 00:37:00 Test Item Value Reference Range Interpretation Comments CK MB (test code = CK MB) 2.9 0.5-3.6 [facility]-17 00:37:00 Test Item Value Reference Range Interpretation Comments Troponin-I (test code no gt See_Comment [Auto mated message] The = Troponin-I) system which g enerated this result transmit emerson reference range : <=0.40. The reference r yared was not used to interpr et this result as erinn l/abnormal. [facility] [employer]2018-04-17 00:37:00 Test Item Value Reference Range Interpretation Comments Total CK (test code = Total CK) 166 12-191 [facility] [employer]2018-04-17 00:37:00 Test Item Value Reference Range Interpretation Comments proBNP (test code = 4827 See_Comment [Automa emerson message] The proBNP) system which ge nerated this result tra nsmitted reference range : <=125. The reference r yared was not used to int erpret this result as erinn l/abnormal. [employer]2018-04-17 00:37:00 Test Item Value Reference Range Interpretation Comments Magnesium Lvl (test code = Magnesium 1.9 1.8-2.4 Lvl) [facility] [employer] [id number] 00:37:00 Test Item Value Reference Range Interpretation Comments Phosphorus (test code = Phosphorus) 9.1 2.5-4.5 [facility] [employer] [id number] 00:37:00 Test Item Value Reference Range Interpretation Comments eGFR (test code = eGFR) 5 [facility] [employer] [id number] 00:37:00 Test Item Value Reference Range Interpretation Comments Alk Phos (test code = Alk Phos) 115 39-136 [facility] [employer] [id number] 00:37:00 Test Item Value Reference Range Interpretation Comments AST (test code = AST) 23 See_Comment [Auto mated message] The system which ge nerated this result transmit emerson reference range : <=37. The reference range was not used to interpr et this result as erinn l/abnormal. [facility]2018-04-17 00:37:00 Test Item Value Reference Range Interpretation Comments ALT (test code = ALT) 24 See_Comment [Auto mated message] The system which ge nerated this result transmit emerson reference range : <=65. The reference range was not used to interpr et this result as erinn l/abnormal. [facility]2018-04-17 00:37:00 Test Item Value Reference Range Interpretation Comments A/G Ratio (test code = A/G Ratio) 0.8 1 0.7-1.6 [facility]2018-04-17 00:37:00 Test Item Value Reference Range Interpretation Comments Globulin (test code = Globulin) 4.0 2.7-4.2 [facility]2018-04-17 00:37:00 Test Item Value Reference Range Interpretation Comments Bili Total (test code = Bili Total) 0.4 0.2-1.3 [facility]2018-04-17 00:37:00 Test Item Value Reference Range Interpretation Comments Potassium Lvl (test code = Potassium 4.4 3.5-5.1 Lvl) [facility]2018-04-17 00:37:00 Test Item Value Reference Range Interpretation Comments Calcium Lvl (test code = Calcium Lvl) 6.7 8.5-10.5 [facility]2018-04-17 00:37:00 Test Item Value Reference Range Interpretation Comments Sodium Lvl (test code = Sodium Lvl) 130 135-145 [facility]2018-04-17 00:37:00 Test Item Value Reference Range Interpretation Comments Creatinine Lvl (test code = Creatinine 11.00 0.50-1.40 Lvl) [facility]2018-04-17 00:37:00 Test Item Value Reference Range Interpretation Comments AGAP (test code = AGAP) 17.4 10.0-20.0 [facility]2018-04-17 00:37:00 Test Item Value Reference Range Interpretation Comments CO2 (test code = CO2) 25 24-32 [facility]2018-04-17 00:37:00 Test Item Value Reference Range Interpretation Comments Chloride Lvl (test code = Chloride Lvl) 92 95-109 [facility]2018-04-17 00:37:00 Test Item Value Reference Range Interpretation Comments Albumin Lvl (test code = Albumin Lvl) 3.4 3.5-5.0 [facility]2018-04-17 00:37:00 Test Item Value Reference Range Interpretation Comments Total Protein (test code = Total 7.4 6.4-8.4 Protein) [facility]2018-04-17 00:37:00 Test Item Value Reference Range Interpretation Comments B/C Ratio (test code = B/C Ratio) 8 1 6-25 [facility]2018-04-17 00:37:00 Test Item Value Reference Range Interpretation Comments BUN (test code = BUN) 84 7-22 [facility]2018-04-17 00:37:00 Test Item Value Reference Range Interpretation Comments Glucose Lvl (test code = Glucose Lvl) 123 70-99 [facility] HospitalKzcnonqWDSAHHBNHE6219-49-26 00:37:00 Test Item Value Reference Range Interpretation Comments Lymphocytes (test code = Lymphocytes) 21.5 20.0-40.0 [facility] HospitalJtytdohCCNEVCCVSE4121-15-93 00:37:00 Test Item Value Reference Range Interpretation Comments Lymphocytes # (test code = Lymphocytes 1.6 1.0-5.5 #) [facility] HospitalQtglpydIBOBQJSFBF5103-92-38 00:37:00 Test Item Value Reference Range Interpretation Comments Eosinophils # (test code 0.3 See_Comment [A utomated message] The = Eosinophils #) system [facility] generated this result tra nsmitted reference range : <=0.5. The reference r yared was not used to int erpret this result as normal/abnormal . [facility] HospitalMlbufwoVCORAEDSLS0378-79-96 00:37:00 Test Item Value Reference Range Interpretation Comments Segs (test code = Segs) 63.7 45.0-75.0 [facility] HospitalBjtxmbeMSSDLMNQLO3565-46-39 00:37:00 Test Item Value Reference Range Interpretation Comments Segs-Bands # (test code = Segs-Bands #) 4.8 1.5-8.1 [facility] HospitalUjmomdlFXWMABYJLU7197-50-46 00:37:00 Test Item Value Reference Range Interpretation Comments Eosinophils (test code = 3.5 See_Comment [A utomated message] The Eosinophils) system which ge nerated this result tra nsmitted reference range : <=4.0. The reference r yared was not used to int erpret this result as normal/abnormal . [facility] HospitalYgsadkvDUCDUKLUTK6668-33-91 00:37:00 Test Item Value Reference Range Interpretation Comments Monocytes (test code = Monocytes) 10.4 2.0-12.0 [facility] HospitalRinxrucRYZSITCYBU3059-57-89 00:37:00 Test Item Value Reference Range Interpretation Comments Basophils (test code = 0.9 See_Comment [Aut omated message] The Basophils) system which ge nerated this result tra nsmitted reference range : <=1.0. The reference r yared was not used to int erpret this result as normal/abnormal . [facility] HospitalIgupyieYOTXZCFRSZ4846-97-82 00:37:00 Test Item Value Reference Range Interpretation Comments Basophils # (test code 0.1 See_Comment [Aut omated message] The = Basophils #) system which generated this result tra nsmitted reference range : <=0.2. The reference r yared was not used to int erpret this result as normal/abnormal . [facility] HospitalCpndhjzWBFFGNXZWC4351-97-71 00:37:00 Test Item Value Reference Range Interpretation Comments Monocytes # (test code 0.8 See_Comment [Aut omated message] The = Monocytes #) system which generated this result tra nsmitted reference range : <=0.8. The reference r yared was not used to int erpret this result as normal/abnormal . [facility] HospitalMfsssshNIXIUREBWY6645-82-11 00:37:00 Test Item Value Reference Range Interpretation Comments INR (test code = INR) 1.06 1 0.85-1.17 [facility] HospitalIdhypupCJKUYONIHG7648-83-06 00:37:00 Test Item Value Reference Range Interpretation Comments PT (test code = PT) 13.8 s 12.0-14.7 [facility] HospitalWupkqtoFRBYHYOMUN6258-08-17 00:37:00 Test Item Value Reference Range Interpretation Comments PTT (test code = PTT) 35.7 s 22.9-35.8 [facility] HospitalQcxjsdtBLKIKOWSTR5856-35-25 00:37:00 Test Item Value Reference Range Interpretation Comments Platelet (test code = Platelet) 238 133-450 [facility] HospitalQsabrzqOFLXPWOCPF8530-40-91 00:37:00 Test Item Value Reference Range Interpretation Comments MPV (test code = MPV) 7.5 7.4-10.4 [facility] HospitalKlqihpiPVNVWWBFBV2750-40-59 00:37:00 Test Item Value Reference Range Interpretation Comments Hct (test code = Hct) 25.4 42.0-54.0 [facility] HospitalSuvinvlSHRFEEXKJJ2404-75-76 00:37:00 Test Item Value Reference Range Interpretation Comments MCV (test code = MCV) 80.3 80.0-94.0 [facility] HospitalWoobwyxQMXFQQFTAL0181-14-29 00:37:00 Test Item Value Reference Range Interpretation Comments MCH (test code = MCH) 28.2 pg 27.0-31.0 [facility] HospitalPdpodvvSNXKIYIOPO9484-89-48 00:37:00 Test Item Value Reference Range Interpretation Comments Hgb (test code = Hgb) 8.9 14.0-18.0 [facility] HospitalQtmcrdsLUNBOLVZRG3424-16-52 00:37:00 Test Item Value Reference Range Interpretation Comments MCHC (test code = MCHC) 35.1 32.0-36.0 [facility] HospitalEsffsswSBTDWPJAZH4886-92-76 00:37:00 Test Item Value Reference Range Interpretation Comments RDW (test code = RDW) 13.9 11.5-14.5 [facility] HospitalTwbmdjuVUIBUCBEXL2565-66-57 00:37:00 Test Item Value Reference Range Interpretation Comments WBC (test code = WBC) 7.6 3.7-10.4 [facility] HospitalAxofialCTPKKWVSKF0904-46-76 00:37:00 Test Item Value Reference Range Interpretation Comments RBC (test code = RBC) 3.16 4.70-6.10 [facility] AND [id number] 00:37:00 Test Item Value Reference Range Interpretation Comments UA Urobilinogen (test code = UA <=1.0 mg/dL 0.1-1.0 Urobilinogen) [facility] AND [id number] 00:37:00 Test Item Value Reference Range Interpretation Comments UA Glucose (test code = UA Glucose) 50 [facility] AND [id number] 00:37:00 Test Item Value Reference Range Interpretation Comments UA Color (test code = UA Color) STRAW [facility] AND [id number] 00:37:00 Test Item Value Reference Range Interpretation Comments UA Sq Epi (test code = UA Sq Epi) Few /LPF [facility] AND [id number] 00:37:00 Test Item Value Reference Range Interpretation Comments UA WBC (test code = 8 See_Comment [Automa emerson message] The UA WBC) system which ge nerated this result transmit emerson reference range : <=5. The reference range was not used to interpr et this result as erinn l/abnormal. [facility] AND [id number] 00:37:00 Test Item Value Reference Range Interpretation Comments UA Mucus (test code = UA Mucus) Few /LPF [facility] AND [id number] 00:37:00 Test Item Value Reference Range Interpretation Comments UA Bacteria (test code = UA Moderate /HPF Bacteria) [facility] AND [id number] 00:37:00 Test Item Value Reference Range Interpretation Comments UA Leuk Est (test code Small *ABN*(01/22/18 = UA Leuk Est) 7:37 PM) [facility] AND [id number] 00:37:00 Test Item Value Reference Range Interpretation Comments UA Protein (test code = UA >=300 mg/dL Protein) [facility] AND [id number] 00:37:00 Test Item Value Reference Range Interpretation Comments UA Ketones (test code = UA Negative mg/dL Ketones) [facility] AND [id number] 00:37:00 Test Item Value Reference Range Interpretation Comments UA pH (test code = UA pH) 6.0 1 5.0-8.0 [facility] AND [id number] 00:37:00 Test Item Value Reference Range Interpretation Comments UA Turbidity (test code = Clear (01/22/18 7:37 UA Turbidity) PM) [facility] AND [id number] 00:37:00 Test Item Value Reference Range Interpretation Comments UA Spec Grav (test code = UA Spec 1.005 1 Grav) [facility] AND [id number] 00:37:00 Test Item Value Reference Range Interpretation Comments UA Nitrite (test code Negative (01/22/18 7:37 = UA Nitrite) PM) [facility] AND [id number] 00:37:00 Test Item Value Reference Range Interpretation Comments UA Blood (test code = Small *ABN*(01/22/18 UA Blood) 7:37 PM) [facility] AND [id number] 00:37:00 Test Item Value Reference Range Interpretation Comments UA Bili (test code = Negative *NA*(01/22/18 UA Bili) 7:37 PM) [facility]2018-03-14 10:09:00 Test Item Value Reference Range Interpretation Comments Magnesium Lvl (test code = Magnesium 1.8 1.8-2.4 Lvl) [facility]2018-03-14 10:09:00 Test Item Value Reference Range Interpretation Comments eGFR (test code = eGFR) 4 [facility]2018-03-14 10:09:00 Test Item Value Reference Range Interpretation Comments Creatinine Lvl (test code = Creatinine 11.60 0.50-1.40 Lvl) [facility]2018-03-14 10:09:00 Test Item Value Reference Range Interpretation Comments Calcium Lvl (test code = Calcium Lvl) 6.9 8.5-10.5 [facility]2018-03-14 10:09:00 Test Item Value Reference Range Interpretation Comments CO2 (test code = CO2) 27 24-32 [facility]2018-03-14 10:09:00 Test Item Value Reference Range Interpretation Comments Sodium Lvl (test code = Sodium Lvl) 133 135-145 [facility]2018-03-14 10:09:00 Test Item Value Reference Range Interpretation Comments Chloride Lvl (test code = Chloride Lvl) 94 95-109 [facility]2018-03-14 10:09:00 Test Item Value Reference Range Interpretation Comments Potassium Lvl (test code = Potassium 3.7 3.5-5.1 Lvl) [facility]2018-03-14 10:09:00 Test Item Value Reference Range Interpretation Comments BUN (test code = BUN) 104 7-22 [facility]2018-03-14 10:09:00 Test Item Value Reference Range Interpretation Comments Glucose Lvl (test code = Glucose Lvl) 85 70-99 [facility]2018-03-14 10:09:00 Test Item Value Reference Range Interpretation Comments AGAP (test code = AGAP) 15.7 10.0-20.0 [facility] HospitalKcrfndkTCNXNEEVWF7386-25-30 10:09:00 Test Item Value Reference Range Interpretation Comments Eosinophils # (test code 0.2 See_Comment [A utomated message] The = Eosinophils #) system whic h generated this result tra nsmitted reference range : <=0.5. The reference r yared was not used to int erpret this result as normal/abnormal . [facility] HospitalRrfjahsTKVRUKOAVO5618-87-60 10:09:00 Test Item Value Reference Range Interpretation Comments Monocytes # (test code 0.6 See_Comment [Aut omated message] The = Monocytes #) system which generated this result tra nsmitted reference range : <=0.8. The reference r yared was not used to int erpret this result as normal/abnormal . [facility] HospitalIzrpmxwJYNRGEIYOU1681-58-51 10:09:00 Test Item Value Reference Range Interpretation Comments Microcyte (test code = 1+ *ABN*(12/20/17 Microcyte) 5:09 AM) [facility] HospitalNjnfigtGXMHCHPDHO2727-33-73 10:09:00 Test Item Value Reference Range Interpretation Comments Segs (test code = Segs) 71.0 45.0-75.0 [facility] HospitalHpktxczEDAKOLQSUA3394-00-94 10:09:00 Test Item Value Reference Range Interpretation Comments Lymphocytes # (test code = Lymphocytes 1.0 1.0-5.5 #) [facility] HospitalBvqmnznVYUFJPTBWG8602-49-18 10:09:00 Test Item Value Reference Range Interpretation Comments Basophils (test code = 0.8 See_Comment [Aut omated message] The Basophils) system which ge nerated this result tra nsmitted reference range : <=1.0. The reference r yared was not used to int erpret this result as normal/abnormal . [facility] HospitalXdjligaFZKWSMYHFX0018-97-32 10:09:00 Test Item Value Reference Range Interpretation Comments Segs-Bands # (test code = Segs-Bands #) 4.6 1.5-8.1 [facility] HospitalByvqenrPEYJOLIEJQ3690-02-78 10:09:00 Test Item Value Reference Range Interpretation Comments Lymphocytes (test code = Lymphocytes) 15.7 20.0-40.0 [facility] HospitalPufyvvyUEILERRPXY4174-52-28 10:09:00 Test Item Value Reference Range Interpretation Comments Eosinophils (test code = 3.1 See_Comment [A utomated message] The Eosinophils) system which ge nerated this result tra nsmitted reference range : <=4.0. The reference r yared was not used to int erpret this result as normal/abnormal . [facility] HospitalBbhsgsyVMCIMYRBFW5639-87-18 10:09:00 Test Item Value Reference Range Interpretation Comments Monocytes (test code = Monocytes) 9.4 2.0-12.0 [facility] HospitalOncvvulZCHJQMDMVM1978-12-34 10:09:00 Test Item Value Reference Range Interpretation Comments Platelet (test code = Platelet) 193 133-450 [facility] HospitalDdsbfvfIQVFYBCBJQ5550-14-84 10:09:00 Test Item Value Reference Range Interpretation Comments MCV (test code = MCV) 77.5 80.0-94.0 [facility] HospitalMptnbgpLHMLXJPRLZ6808-75-68 10:09:00 Test Item Value Reference Range Interpretation Comments MCHC (test code = MCHC) 35.5 32.0-36.0 [facility] HospitalYftjiipCMYLPIHQTE5566-44-72 10:09:00 Test Item Value Reference Range Interpretation Comments MCH (test code = MCH) 27.5 pg 27.0-31.0 [facility] HospitalGmokvwoBIQDQGDKPE4006-54-43 10:09:00 Test Item Value Reference Range Interpretation Comments RDW (test code = RDW) 14.1 11.5-14.5 [facility] HospitalWwckkniJHXLTCUJEO4731-90-96 10:09:00 Test Item Value Reference Range Interpretation Comments MPV (test code = MPV) 7.7 7.4-10.4 [facility] HospitalIkcxllcRRKHREXCNV2975-54-24 10:09:00 Test Item Value Reference Range Interpretation Comments Hct (test code = Hct) 23.5 42.0-54.0 [facility] HospitalVpgjlomOYFAKNOKOL5007-35-34 10:09:00 Test Item Value Reference Range Interpretation Comments Hgb (test code = Hgb) 8.4 14.0-18.0 [facility] HospitalZansqjgJAUNTSGIXC4586-92-62 10:09:00 Test Item Value Reference Range Interpretation Comments RBC (test code = RBC) 3.03 4.70-6.10 [facility] HospitalAjdlhpmBDVNZESSGL0887-98-44 10:09:00 Test Item Value Reference Range Interpretation Comments WBC (test code = WBC) 6.5 3.7-10.4 [facility] [id number] 10:09:00 Test Item Value Reference Range Interpretation Comments Ca Norm WB (test code = Ca Norm WB) 0.86 1.05-1.25 [facility] HermannPARATHYROID [id number] 10:09:00 Test Item Value Reference Range Interpretation Comments Ca Ion WB (test code = Ca Ion WB) 0.86 1.05-1.25 [facility] [id number] 17:00:00 Test Item Value Reference Range Interpretation Comments Occult Bld Stl (test Positive *ABN*(12/19/17 code = Occult Bld Stl) 12:00 PM) [facility] [id number] 12:14:00 Test Item Value Reference Range Interpretation Comments Phosphorus (test code = Phosphorus) 8.2 2.5-4.5 [facility]2018-03-13 12:14:00 Test Item Value Reference Range Interpretation Comments A/G Ratio (test code = A/G Ratio) 0.8 1 0.7-1.6 [facility]2018-03-13 12:14:00 Test Item Value Reference Range Interpretation Comments AST (test code = AST) 9 See_Comment [Auto mated message] The system which ge nerated this result transmit emerson reference range : <=37. The reference range was not used to interpr et this result as erinn l/abnormal. [facility]woodHaw[facility] [id number] 12:14:00 Test Item Value Reference Range Interpretation Comments ALT (test code = ALT) 10 See_Comment [Auto mated message] The system which ge nerated this result transmit emerson reference range : <=65. The reference range was not used to interpr et this result as erinn l/abnormal. [facility] HospitalAnkeena Networks [id number] 12:14:00 Test Item Value Reference Range Interpretation Comments Globulin (test code = Globulin) 3.5 2.7-4.2 [facility]2018-03-13 12:14:00 Test Item Value Reference Range Interpretation Comments Albumin Lvl (test code = Albumin Lvl) 2.7 3.5-5.0 [facility]2018-03-13 12:14:00 Test Item Value Reference Range Interpretation Comments eGFR (test code = eGFR) 4 [facility]2018-03-13 12:14:00 Test Item Value Reference Range Interpretation Comments Alk Phos (test code = Alk Phos) 100 39-136 [facility]2018-03-13 12:14:00 Test Item Value Reference Range Interpretation Comments Bili Total (test code = Bili Total) 0.3 0.2-1.3 [facility]2018-03-13 12:14:00 Test Item Value Reference Range Interpretation Comments Glucose Lvl (test code = Glucose Lvl) 88 70-99 [facility]2018-03-13 12:14:00 Test Item Value Reference Range Interpretation Comments Potassium Lvl (test code = Potassium 3.6 3.5-5.1 Lvl) [facility]2018-03-13 12:14:00 Test Item Value Reference Range Interpretation Comments Chloride Lvl (test code = Chloride Lvl) 95 95-109 [facility]2018-03-13 12:14:00 Test Item Value Reference Range Interpretation Comments Sodium Lvl (test code = Sodium Lvl) 135 135-145 [facility]2018-03-13 12:14:00 Test Item Value Reference Range Interpretation Comments BUN (test code = BUN) 103 7-22 [facility]2018-03-13 12:14:00 Test Item Value Reference Range Interpretation Comments Creatinine Lvl (test code = Creatinine 11.70 0.50-1.40 Lvl) [facility]2018-03-13 12:14:00 Test Item Value Reference Range Interpretation Comments B/C Ratio (test code = B/C Ratio) 9 1 6-25 [facility]2018-03-13 12:14:00 Test Item Value Reference Range Interpretation Comments Total Protein (test code = Total 6.2 6.4-8.4 Protein) [facility]2018-03-13 12:14:00 Test Item Value Reference Range Interpretation Comments Calcium Lvl (test code = Calcium Lvl) 6.5 8.5-10.5 [facility]2018-03-13 12:14:00 Test Item Value Reference Range Interpretation Comments AGAP (test code = AGAP) 14.6 10.0-20.0 [facility]2018-03-13 12:14:00 Test Item Value Reference Range Interpretation Comments CO2 (test code = CO2) 29 24-[facility] [id number] 12:14:00 Test Item Value Reference Range Interpretation Comments Ca Ion WB (test code = Ca Ion WB) 0.88 1.05-1.25 [facility] [id number] 12:14:00 Test Item Value Reference Range Interpretation Comments Ca Norm WB (test code = Ca Norm WB) 0.85 1.05-1.25 [facility]2018-03-13 10:02:00 Test Item Value Reference Range Interpretation Comments eGFR (test code = eGFR) 4 [facility]2018-03-13 10:02:00 Test Item Value Reference Range Interpretation Comments Glucose Lvl (test code = Glucose Lvl) 92 70-99 [facility]2018-03-13 10:02:00 Test Item Value Reference Range Interpretation Comments Sodium Lvl (test code = Sodium Lvl) 138 135-145 [facility]2018-03-13 10:02:00 Test Item Value Reference Range Interpretation Comments Potassium Lvl (test code = Potassium 3.6 3.5-5.1 Lvl) [facility]2018-03-13 10:02:00 Test Item Value Reference Range Interpretation Comments BUN (test code = BUN) 97 7-22 [facility]2018-03-13 10:02:00 Test Item Value Reference Range Interpretation Comments Creatinine Lvl (test code = Creatinine 11.80 0.50-1.40 Lvl) [facility]2018-03-13 10:02:00 Test Item Value Reference Range Interpretation Comments Calcium Lvl (test code = Calcium Lvl) 6.8 8.5-10.5 [facility]2018-03-13 10:02:00 Test Item Value Reference Range Interpretation Comments CO2 (test code = CO2) 27 24-32 [facility]2018-03-13 10:02:00 Test Item Value Reference Range Interpretation Comments AGAP (test code = AGAP) 18.6 10.0-20.0 [facility]2018-03-13 10:02:00 Test Item Value Reference Range Interpretation Comments Chloride Lvl (test code = Chloride Lvl) 96 95-109 [place] 849228-03-13 10:02:00 Test Item Value Reference Range Interpretation Comments Magnesium Lvl (test code = Magnesium 1.8 1.8-2.4 Lvl) [facility]awLPUNVASZDB4858-28-81 10:02:00 Test Item Value Reference Range Interpretation Comments RDW (test code = RDW) 14.3 11.5-14.5 [facility]EzqrlrgYOHSUMTIDU7935-74-41 10:02:00 Test Item Value Reference Range Interpretation Comments MCHC (test code = MCHC) 34.5 32.0-36.0 [facility] HospitalZlqlvokPMLUDACXBH6120-63-01 10:02:00 Test Item Value Reference Range Interpretation Comments MCH (test code = MCH) 26.8 pg 27.0-31.0 [facility] HospitalCxgwrhpCQEVIWITLU8646-93-66 10:02:00 Test Item Value Reference Range Interpretation Comments MPV (test code = MPV) 8.0 7.4-10.4 [facility] HospitalYuziyboGKIOWNLTRH5116-79-85 10:02:00 Test Item Value Reference Range Interpretation Comments Platelet (test code = Platelet) 200 133-450 [facility] HospitalVdztytsCUGFMLRXQH7011-16-20 10:02:00 Test Item Value Reference Range Interpretation Comments MCV (test code = MCV) 77.7 80.0-94.0 [facility] HospitalEjnxkpbBTUSNSBVUY0847-01-30 10:02:00 Test Item Value Reference Range Interpretation Comments Hct (test code = Hct) 24.7 42.0-54.0 [facility] HospitalMriqktcMWYVQAQLXC2805-47-89 10:02:00 Test Item Value Reference Range Interpretation Comments Hgb (test code = Hgb) 8.5 14.0-18.0 [facility] HospitalVcespvyKASAZLFHPW4815-76-93 10:02:00 Test Item Value Reference Range Interpretation Comments RBC (test code = RBC) 3.17 4.70-6.10 [facility] HospitalXdttduuTZQBMJTOTR0455-84-61 10:02:00 Test Item Value Reference Range Interpretation Comments WBC (test code = WBC) 6.6 3.7-10.4 [facility] HospitalLrbiohnNVVVKOECIN5669-61-05 10:02:00 Test Item Value Reference Range Interpretation Comments Monocytes # (test code 0.7 See_Comment [Aut omated message] The = Monocytes #) system which generated this result tra nsmitted reference range : <=0.8. The reference r yared was not used to int erpret this result as normal/abnormal . [facility] HospitalTdmqdwjPMXDAGXCUF3322-49-18 10:02:00 Test Item Value Reference Range Interpretation Comments Eosinophils # (test code 0.2 See_Comment [A utomated message] The = Eosinophils #) system whic h generated this result tra nsmitted reference range : <=0.5. The reference r yared was not used to int erpret this result as normal/abnormal . [facility] HospitalFiyltvkOWFBVGEZVI0543-29-31 10:02:00 Test Item Value Reference Range Interpretation Comments Microcyte (test code = 1+ *ABN*(12/19/17 Microcyte) 5:02 AM) [facility] HospitalZxdmvirKYJECUCFWI7972-57-69 10:02:00 Test Item Value Reference Range Interpretation Comments Lymphocytes # (test code = Lymphocytes 1.0 1.0-5.5 #) [facility] HospitalTlrgsjeNAJWQJWRDO9192-29-65 10:02:00 Test Item Value Reference Range Interpretation Comments Basophils (test code = 0.6 See_Comment [Aut omated message] The Basophils) system which ge nerated this result tra nsmitted reference range : <=1.0. The reference r yared was not used to int erpret this result as normal/abnormal . [facility] HospitalMzhexdtJNQVDDGLSZ4739-62-88 10:02:00 Test Item Value Reference Range Interpretation Comments Segs-Bands # (test code = Segs-Bands #) 4.7 1.5-8.1 [facility] HospitalEqkyzzzBPDGVGRWKN7882-03-95 10:02:00 Test Item Value Reference Range Interpretation Comments Monocytes (test code = Monocytes) 10.3 2.0-12.0 [facility] HospitalRwlojiwMCCOGXHYDU2810-94-35 10:02:00 Test Item Value Reference Range Interpretation Comments Eosinophils (test code = 2.9 See_Comment [A utomated message] The Eosinophils) system which ge nerated this result tra nsmitted reference range : <=4.0. The reference r yared was not used to int erpret this result as normal/abnormal . [facility] HospitalXletjkrPNFCGNJEWJ5358-96-44 10:02:00 Test Item Value Reference Range Interpretation Comments Lymphocytes (test code = Lymphocytes) 15.3 20.0-40.0 [facility] HospitalRxnzztoMLADGKYJNW1532-09-81 10:02:00 Test Item Value Reference Range Interpretation Comments Segs (test code = Segs) 70.9 45.0-75.0 [facility]2018-03-13 10:02:00 Test Item Value Reference Range Interpretation Comments Ca Ion WB (test code = Ca Ion WB) 0.88 1.05-1.25 [facility]2018-03-13 10:02:00 Test Item Value Reference Range Interpretation Comments Ca Norm WB (test code = Ca Norm WB) 0.88 1.05-1.25 [facility]2018-03-12 09:55:00 Test Item Value Reference Range Interpretation Comments Magnesium Lvl (test code = Magnesium 1.9 1.8-2.4 Lvl) [facility]2018-03-12 09:55:00 Test Item Value Reference Range Interpretation Comments Phosphorus (test code = Phosphorus) 8.8 2.5-4.5 [facility] HospitalGupcqjxBTJMVJMWNT2851-88-30 09:32:00 Test Item Value Reference Range Interpretation Comments Microcyte (test code = 1+ *ABN*(12/17/17 Microcyte) 4:32 AM) [facility] HospitalWmjcdwkOIKYZOHAJU4233-17-64 09:32:00 Test Item Value Reference Range Interpretation Comments Eosinophils # (test code 0.2 See_Comment [A utomated message] The = Eosinophils #) system whic h generated this result tra nsmitted reference range : <=0.5. The reference r yared was not used to int erpret this result as normal/abnormal . [facility] HospitalHmmdrxnFCVUYAKYSE5369-01-45 09:32:00 Test Item Value Reference Range Interpretation Comments Monocytes # (test code 0.6 See_Comment [Aut omated message] The = Monocytes #) system which generated this result tra nsmitted reference range : <=0.8. The reference r yared was not used to int erpret this result as normal/abnormal . [facility] HospitalRptchpcVTCIGWNXHF3484-39-81 09:32:00 Test Item Value Reference Range Interpretation Comments Lymphocytes # (test code = Lymphocytes 1.0 1.0-5.5 #) [facility] HospitalCtfqcmbYRHTZEUPFR5868-35-44 09:32:00 Test Item Value Reference Range Interpretation Comments Segs-Bands # (test code = Segs-Bands #) 3.9 1.5-8.1 [facility] HospitalZpvvkhhMNJLALUANR3993-30-56 09:32:00 Test Item Value Reference Range Interpretation Comments Basophils (test code = 0.6 See_Comment [Aut omated message] The Basophils) system which ge nerated this result tra nsmitted reference range : <=1.0. The reference r yared was not used to int erpret this result as normal/abnormal . [facility] HospitalJcugowyEMCUEUSHOI0447-79-00 09:32:00 Test Item Value Reference Range Interpretation Comments Eosinophils (test code = 2.7 See_Comment [A utomated message] The Eosinophils) system which ge nerated this result tra nsmitted reference range : <=4.0. The reference r yared was not used to int erpret this result as normal/abnormal . [facility] HospitalOblcvvzSNBINQQUGI1986-63-50 09:32:00 Test Item Value Reference Range Interpretation Comments Monocytes (test code = Monocytes) 10.4 2.0-12.0 [facility] HospitalXtuwyutOZDKPAFDEQ1459-10-67 09:32:00 Test Item Value Reference Range Interpretation Comments Lymphocytes (test code = Lymphocytes) 18.1 20.0-40.0 [facility] HospitalKkkbnccTLTRHQJGEA5181-18-44 09:32:00 Test Item Value Reference Range Interpretation Comments Segs (test code = Segs) 68.2 45.0-75.0 [facility] HospitalLrslindMTSTXLXDZC6462-01-66 09:32:00 Test Item Value Reference Range Interpretation Comments Platelet (test code = Platelet) 213 133-450 [facility] HospitalQhfupkpOINQJGOPRN0148-72-70 09:32:00 Test Item Value Reference Range Interpretation Comments RDW (test code = RDW) 14.3 11.5-14.5 [facility] HospitalXjusjbhSDSDOBDCZO5035-14-26 09:32:00 Test Item Value Reference Range Interpretation Comments MPV (test code = MPV) 8.0 7.4-10.4 [facility] HospitalFgwduipFMPOGTNEZT1544-05-91 09:32:00 Test Item Value Reference Range Interpretation Comments MCH (test code = MCH) 27.4 pg 27.0-31.0 [facility] HospitalIisgbhdVUEZQQPWRO8976-67-00 09:32:00 Test Item Value Reference Range Interpretation Comments MCV (test code = MCV) 78.6 80.0-94.0 [place] 603968-03-11 09:32:00 Test Item Value Reference Range Interpretation Comments Hct (test code = Hct) 22.8 42.0-54.0 [facility] HospitalNpbflkoPIMQPNDGPU0924-16-41 09:32:00 Test Item Value Reference Range Interpretation Comments MCHC (test code = MCHC) 34.9 32.0-36.0 [facility] HospitalVjomtkhTNEECKQDEB1699-42-65 09:32:00 Test Item Value Reference Range Interpretation Comments Hgb (test code = Hgb) 7.9 14.0-18.0 [facility] HospitalYcyifwuIOKKOQWEYO0174-71-39 09:32:00 Test Item Value Reference Range Interpretation Comments RBC (test code = RBC) 2.90 4.70-6.10 [facility] HospitalSezvvgiSUSLFMPSWZ2088-85-87 09:32:00 Test Item Value Reference Range Interpretation Comments WBC (test code = WBC) 5.7 3.7-10.4 [facility] HospitalMjrsqxuFDLTAMVBPH1453-23-05 09:32:00 Test Item Value Reference Range Interpretation Comments Sed Rate (test code = 80 See_Comment [Auto mated message] The Sed Rate) system which ge nerated this result transmit emerson reference range : <=15. The reference range was not used to interpr et this result as erinn l/abnormal. [facility]BhggcnrOJAZJHSKDZ5091-44-39 09:32:00 Test Item Value Reference Range Interpretation Comments Tot Prot (SPE) (test code = Tot Prot 7.0 6.4-8.4 (SPE)) [facility] CampusIohfchnQZCKIKGUEG1102-16-05 09:32:00 Test Item Value Reference Range Interpretation Comments SPE Interp (test Total protein and serum code = SPE Interp) albumin are within normal limits. Serum capillary protein electrophoresis shows an elevated alpha-1 globulin fraction. No monoclonal proteins are identified. The electrophoretic pattern is consistent with the acute phase of an inflammatory process. Clinical correlation is required. Interpretation performed at [facility]. [facility] CampusWsnyfzzGQIKPIGCJJ0689-50-48 09:32:00 Test Item Value Reference Range Interpretation Comments Gamma Glob (test code = Gamma Glob) 1.13 0.71-1.57 [facility] CampusUrtwtznJNEFEEPMVY4594-55-69 09:32:00 Test Item Value Reference Range Interpretation Comments Beta Glob (test code = Beta Glob) 0.83 0.50-1.15 [facility] CampusHvyifonIWXKKJQPAB4537-54-34 09:32:00 Test Item Value Reference Range Interpretation Comments Alpha 2 Glob (test code = Alpha 2 Glob) 0.85 0.45-1.00 [facility] CampusNfytbgaYPAZVQDXRR3758-37-63 09:32:00 Test Item Value Reference Range Interpretation Comments Alpha 1 Glob (test code = Alpha 1 Glob) 0.48 0.18-0.41 [facility] CampusCigsrcdPTCFFJSGYB9388-87-32 09:32:00 Test Item Value Reference Range Interpretation Comments Albumin (SPE) (test code = Albumin 3.72 3.57-5.55 (SPE)) [facility] CampusFdbvpleTTOEVZMZQF9149-66-99 09:32:00 Test Item Value Reference Range Interpretation Comments Beta % (test code = Beta %) 11.8 7.8-13.7 [facility] CampusXdftnhiAJCNCZWJLS3664-91-90 09:32:00 Test Item Value Reference Range Interpretation Comments Gamma % (test code = Gamma %) 16.2 11.1-18.7 [facility] CampusKzthvkkHNXYRAFQXF3334-23-39 09:32:00 Test Item Value Reference Range Interpretation Comments Alpha 2 % (test code = Alpha 2 %) 12.1 7.0-11.9 [facility] CampusTbxjbspASVRGKACNT6365-09-73 09:32:00 Test Item Value Reference Range Interpretation Comments Alpha 1 % (test code = Alpha 1 %) 6.8 2.8-4.9 [facility] CampusEhtizadYECYICCTYP4218-24-40 09:32:00 Test Item Value Reference Range Interpretation Comments Albumin % (test code = Albumin %) 53.1 55.8-66.1 [facility] CampusEburqvyKVTNEJNKIH8257-94-08 09:32:00 Test Item Value Reference Range Interpretation Comments C3 Complement (test code = C3 91 88-201 Complement) [facility] CampusCugdriiBATAMXSWOP5972-08-08 09:32:00 Test Item Value Reference Range Interpretation Comments MIKE Ser Pattern (test See interpretation. code = MIKE Ser Pattern) [facility] CampusHqvklyzOMTETSSMAV4555-47-79 09:32:00 Test Item Value Reference Range Interpretation Comments MIKE Ser Interp Serum immunofixation (test code = MIKE electrophoresis reveals a Ser Interp) polyclonal pattern of immunoglobulins. No monoclonal proteins are identified. Interpretation performed at [facility]. [facility] CampusTwtsiylPWCGQQUMJZ6426-01-36 09:32:00 Test Item Value Reference Range Interpretation Comments C4 Complement (test code = C4 29 16-47 Complement) [facility] CampusFhndodjQBGAGRQKNG5633-72-09 09:32:00 Test Item Value Reference Range Interpretation Comments P-ANCA (test code = Negative (12/17/17 4:32 P-ANCA) AM) [facility] CampusNutvbreEGOCILCDDS9647-83-71 09:32:00 Test Item Value Reference Range Interpretation Comments C-ANCA (test code = Negative (12/17/17 4:32 C-ANCA) AM) [facility] CampusYcvrohbMGQZQBIVPO5375-05-95 09:32:00 Test Item Value Reference Range Interpretation Comments Hep Bs Ag (test code Negative *NA*(12/17/17 = Hep Bs Ag) 4:32 AM) [facility] CampusSlstremGTGWJRZENC4445-98-03 09:32:00 Test Item Value Reference Range Interpretation Comments Hep Bs Ab (test code = Hep Bs Ab) no gt [facility] CampusUmbeezxUHFVAWCUPC2279-06-45 09:32:00 Test Item Value Reference Range Interpretation Comments Hep B Core Ab (test Negative *NA*(12/17/17 code = Hep B Core Ab) 4:32 AM) [facility] CampusSbfrynePTMVBVLQGC4092-89-61 09:32:00 Test Item Value Reference Range Interpretation Comments DNA Ab (DS) (test Negative (12/17/17 4:32 code = DNA Ab (DS)) AM) [facility] CampusNtqdajaGSRAYYVKRL1856-36-15 09:32:00 Test Item Value Reference Range Interpretation Comments [place]/Lambda Free [employer] Chains Ratio 3.42 0.26-1.65 (test code = [place]/Lambda Free [employer] Chains Ratio) [facility] CampusBacizavXXDUQZKCVU9396-44-96 09:32:00 Test Item Value Reference Range Interpretation Comments [place] [employer] [place] Ch[employer] (test code = 203.40 3.30-19.40 [place] [employer]) [facility] CampusLcjirpbRRCLPJIYXT7439-22-04 09:32:00 Test Item Value Reference Range Interpretation Comments Lambda Free Light Chains (test code = 59.41 5.70-26.30 Lambda Free [employer] Chains) [facility] CampusFlsswkzMTFZHCKEOX0960-88-85 09:32:00 Test Item Value Reference Range Interpretation Comments CHRISTINA (test code = CHRISTINA) Negative (12/17/17 4:32 AM) [facility] CampusTbkfsyfZSXGHOXTMY4757-52-78 09:32:00 Test Item Value Reference Range Interpretation Comments RF Qnt (test code = no gt See_Comment [Automa emerson message] The RF Qnt) system which ge nerated this result transmit emerson reference range : <=20. The reference range was not used to interpr et this result as erinn l/abnormal. [facility]2018-03-09 22:29:00 Test Item Value Reference Range Interpretation Comments % Satur Fe (test code = % S[place]) 12 12-57 [facility]2018-03-09 22:29:00 Test Item Value Reference Range Interpretation Comments UIBC (test code = UIBC) 238 110-370 [facility]2018-03-09 22:29:00 Test Item Value Reference Range Interpretation Comments TIBC (test code = TIBC) 272 228-428 [facility]2018-03-09 22:29:00 Test Item Value Reference Range Interpretation Comments Iron (test code = Iron) 34 45-160 [facility]2018-03-09 22:29:00 Test Item Value Reference Range Interpretation Comments Ferritin Lvl (test code = Ferritin Lvl) 266 22-275 [facility]2018-03-09 22:29:00 Test Item Value Reference Range Interpretation Comments Vitamin B12 Lvl (test code = Vitamin 114 354-6747 B12 Lvl) [facility]2018-03-09 22:29:00 Test Item Value Reference Range Interpretation Comments Folate Lvl (test code = Folate Lvl) 19.0 [facility] [id number] 22:29:00 Test Item Value Reference Range Interpretation Comments Vitamin D, 25-OH, Total (test code = 12.3 30.0-100.0 Vitamin D, 25-OH, Total) [facility] HospitalPARATHYROID KJXSQWY0165-83-56 22:29:00 Test Item Value Reference Range Interpretation Comments PTH Intact (test code = PTH Intact) 396.7 11.1-79.5 [facility] HospitalUtiqxdbOHBWLILACC3134-66-35 20:13:00 Test Item Value Reference Range Interpretation Comments Retic Auto (test code = Retic Auto) 1.5 0.5-1.5 [facility] HospitalCARDIAC CFFISWV7903-26-75 20:12:00 Test Item Value Reference Range Interpretation Comments Troponin-I (test code no gt See_Comment [Auto mated message] The = Troponin-I) system which g enerated this result transmit emerson reference range : <=0.40. The reference r yared was not used to interpr et this result as erinn l/abnormal. [facility] [employer] EHYUNVZ6301-14-67 20:12:00 Test Item Value Reference Range Interpretation Comments Total CK (test code = Total CK) 380 12-191 [facility]Ge[facility] MTAFLRG8979-23-26 20:12:00 Test Item Value Reference Range Interpretation Comments CK MB (test code = CK MB) 5.4 0.5-3.6 [facility]woodGe[facility]AC [id number] 20:12:00 Test Item Value Reference Range Interpretation Comments CK MB Index (test 1.4 1 See_Comment [Automate d message] The code = CK MB Index) system w the [facility] generated this result transmit emerson reference range : <=2.5. The reference range was not used to interpr et this result as erinn l/abnormal. [facility] [employer] [id number] 20:12:00 Test Item Value Reference Range Interpretation Comments Phosphorus (test code = >13.5 mg/dL 2.5-4.5 Phosphorus) [facility] [employer] [facility] [id number] 20:12:00 Test Item Value Reference Range Interpretation Comments Bili Total (test code = Bili Total) 0.4 0.2-1.3 [facility] [id number] 20:12:00 Test Item Value Reference Range Interpretation Comments ALT (test code = ALT) 14 See_Comment [Auto mated message] The system which ge nerated this result transmit emerson reference range : <=65. The reference range was not used to interpr et this result as erinn l/abnormal. [facility] [employer] [facility] [id number] 20:12:00 Test Item Value Reference Range Interpretation Comments AST (test code = AST) 17 See_Comment [Auto mated message] The system which ge nerated this result transmit emerson reference range : <=37. The reference range was not used to interpr et this result as erinn l/abnormal. [facility] [employer] [facility] [id number] 20:12:00 Test Item Value Reference Range Interpretation Comments Alk Phos (test code = Alk Phos) 115 39-136 [facility] [id number] 20:12:00 Test Item Value Reference Range Interpretation Comments Albumin Lvl (test code = Albumin Lvl) 3.4 3.5-5.0 [facility] [id number] 20:12:00 Test Item Value Reference Range Interpretation Comments Total Protein (test code = Total 7.4 6.4-8.4 Protein) [facility]woodHaw[facility] [id number] 20:12:00 Test Item Value Reference Range Interpretation Comments B/C Ratio (test code = B/C Ratio) 9 1 6-25 [facility] [id number] 20:12:00 Test Item Value Reference Range Interpretation Comments A/G Ratio (test code = A/G Ratio) 0.8 1 0.7-1.6 [facility] [id number] 20:12:00 Test Item Value Reference Range Interpretation Comments Globulin (test code = Globulin) 4.0 2.7-4.2 [facility] NetworkCARFunideliaAC [id number] 16:39:00 Test Item Value Reference Range Interpretation Comments Troponin-I (test code no gt See_Comment [Auto mated message] The = Troponin-I) system which g enerated this result transmit emerson reference range : <=0.40. The reference r yared was not used to interpr et this result as erinn l/abnormal. [facility] [employer] [id number] 16:39:00 Test Item Value Reference Range Interpretation Comments Total CK (test code = Total CK) 350 12-191 [facility]Ge[facility] [id number] 16:39:00 Test Item Value Reference Range Interpretation Comments CK MB (test code = CK MB) 4.8 0.5-3.6 [facility] KingwoodannCARDIAC [id number] 16:39:00 Test Item Value Reference Range Interpretation Comments CK MB Index (test 1.4 1 See_Comment [Automate d message] The code = CK MB Index) system w the [facility] generated this result transmit emerson reference range : <=2.5. The reference range was not used to interpr et this result as erinn l/abnormal. [facility] KingwoodCorcept TherapeuticsURINE [id number] 14:38:00 Test Item Value Reference Range Interpretation Comments U Potassium (test code = U Potassium) 20.0 [facility]2018-03-09 14:38:00 Test Item Value Reference Range Interpretation Comments U Sodium (test code = U Sodium) 31 [facility]2018-03-09 14:38:00 Test Item Value Reference Range Interpretation Comments U Chloride (test code = U Chloride) 22 [facility]2018-03-09 14:38:00 Test Item Value Reference Range Interpretation Comments U Protein (test code = U Protein) 246.9 [facility]2018-03-09 14:38:00 Test Item Value Reference Range Interpretation Comments U Prot/Creat (test code = U 4.35 1 Prot/Creat) [facility]2018-03-09 14:38:00 Test Item Value Reference Range Interpretation Comments U Creatinine (test code = U Creatinine) 56.70 [facility]2018-03-09 14:38:00 Test Item Value Reference Range Interpretation Comments U Osmolality (test code = U Osmolality) 223 300-800 [facility]2018-03-09 14:38:00 Test Item Value Reference Range Interpretation Comments U Eos (test code = U None Seen (12/15/17 8:38 Eos) AM) [facility] AND [id number] 14:33:00 Test Item Value Reference Range Interpretation Comments Micro? (test code = Performed *NA*(12/15/17 Micro?) 8:33 AM) [facility] AND [id number] 14:33:00 Test Item Value Reference Range Interpretation Comments UA Urobilinogen (test code = UA <=1.0 mg/dL 0.1-1.0 Urobilinogen) [facility] AND [id number] 14:33:00 Test Item Value Reference Range Interpretation Comments UA Glucose (test code = UA Glucose) 50 [facility] AND [id number] 14:33:00 Test Item Value Reference Range Interpretation Comments UA Color (test code = UA Color) STRAW [facility] AND [id number] 14:33:00 Test Item Value Reference Range Interpretation Comments UA Nitrite (test code Negative (12/15/17 8:33 = UA Nitrite) AM) [facility] AND [id number] 14:33:00 Test Item Value Reference Range Interpretation Comments UA Blood (test code = Small *ABN*(12/15/17 UA Blood) 8:33 AM) [facility] AND [id number] 14:33:00 Test Item Value Reference Range Interpretation Comments UA Leuk Est (test Negative (12/15/17 8:33 code = UA Leuk Est) AM) [facility] AND [id number] 14:33:00 Test Item Value Reference Range Interpretation Comments UA WBC (test code = 3 See_Comment [Automa emerson message] The UA WBC) system which ge nerated this result transmit emerson reference range : <=5. The reference range was not used to interpr et this result as erinn l/abnormal. [facility] AND [id number] 14:33:00 Test Item Value Reference Range Interpretation Comments UA Sq Epi (test code = UA Sq Occasional /LPF Epi) [facility] AND [id number] 14:33:00 Test Item Value Reference Range Interpretation Comments UA Mucus (test code = UA Mucus) Few /LPF [facility] AND [id number] 14:33:00 Test Item Value Reference Range Interpretation Comments UA RBC (test code = 1 See_Comment [Automa emerson message] The UA RBC) system which ge nerated this result transmit emerson reference range : <=2. The reference range was not used to interpr et this result as erinn l/abnormal. [facility] AND [id number] 14:33:00 Test Item Value Reference Range Interpretation Comments UA Turbidity (test code Slight *ABN*(12/15/17 = UA Turbidity) 8:33 AM) [facility] AND [id number] 14:33:00 Test Item Value Reference Range Interpretation Comments UA Spec Grav (test code = UA Spec 1.008 1 Grav) [facility] AND [id number] 14:33:00 Test Item Value Reference Range Interpretation Comments UA Ketones (test code = UA Negative mg/dL Ketones) [facility] AND [id number] 14:33:00 Test Item Value Reference Range Interpretation Comments UA pH (test code = UA pH) 5.0 1 5.0-8.0 [facility] AND [id number] 14:33:00 Test Item Value Reference Range Interpretation Comments UA Bili (test code = Negative *NA*(12/15/17 UA Bili) 8:33 AM) [facility] [id number] 14:33:00 Test Item Value Reference Range Interpretation Comments UA Protein (test code = UA Protein) 100 mg/dL [facility] [id number] 12:48:00 Test Item Value Reference Range Interpretation Comments CK MB Index (test 1.3 1 See_Comment [Automate d message] The code = CK MB Index) system w the [facility] generated this result transmit emerson reference range : <=2.5. The reference range was not used to interpr et this result as erinn l/abnormal. [facility] [id number] 12:48:00 Test Item Value Reference Range Interpretation Comments proBNP (test code = 4088 See_Comment [Automa emerson message] The proBNP) system which ge nerated this result tra nsmitted reference range : <=125. The reference r yared was not used to int erpret this result as erinn l/abnormal. [facility] [id number] 12:48:00 Test Item Value Reference Range Interpretation Comments Total CK (test code = Total CK) 357 12-191 [facility] [id number] 12:48:00 Test Item Value Reference Range Interpretation Comments CK MB (test code = CK MB) 4.8 0.5-3.6 [facility] [id number] 12:48:00 Test Item Value Reference Range Interpretation Comments Troponin-I (test code no gt See_Comment [Auto mated message] The = Troponin-I) system which g enerated this result transmit emerson reference range : <=0.40. The reference r yared was not used to interpr et this result as erinn l/abnormal. [facility] [id number] 12:48:00 Test Item Value Reference Range Interpretation Comments A/G Ratio (test code = A/G Ratio) 0.8 1 0.7-1.6 [facility]CMannCHEM [id number] 12:48:00 Test Item Value Reference Range Interpretation Comments Total Protein (test code = Total 7.0 6.4-8.4 Protein) [facility]2018-03-09 12:48:00 Test Item Value Reference Range Interpretation Comments Globulin (test code = Globulin) 3.9 2.7-4.2 [facility]2018-03-09 12:48:00 Test Item Value Reference Range Interpretation Comments Albumin Lvl (test code = Albumin Lvl) 3.1 3.5-5.0 [facility]2018-03-09 12:48:00 Test Item Value Reference Range Interpretation Comments Bili Total (test code = Bili Total) 0.4 0.2-1.3 [facility]2018-03-09 12:48:00 Test Item Value Reference Range Interpretation Comments Alk Phos (test code = Alk Phos) 108 39-136 [facility]2018-03-09 12:48:00 Test Item Value Reference Range Interpretation Comments ALT (test code = ALT) 15 See_Comment [Auto mated message] The system which ge nerated this result transmit emerson reference range : <=65. The reference range was not used to interpr et this result as erinn l/abnormal. [facility]2018-03-09 12:48:00 Test Item Value Reference Range Interpretation Comments AST (test code = AST) 13 See_Comment [Auto mated message] The system which ge nerated this result transmit emerson reference range : <=37. The reference range was not used to interpr et this result as erinn l/abnormal. [facility]2018-03-09 12:48:00 Test Item Value Reference Range Interpretation Comments B/C Ratio (test code = B/C Ratio) 9 1 6-25 [id number] 12:48:00 Test Item Value Reference Range Interpretation Comments D-Dimer (test code = D-Dimer) 1.17 [facility]
--- NOTE | 2021-10-18 20:09 | ER ---
Nurse's Notes [facility] Name: Alex Cagle Age: 61 yrs Sex: Male : 1960 Arrival Date: 10/18/2021 Time: 18:51 Bed Waiting Private MD: Diagnosis: Presentation: 10/18 19:28 Chief complaint: Patient states: he fell last night now has bad pain on right side was bb unable to sleep last night or tonight. Coronavirus screen: At this time, the client does not indicate any symptoms associated with coronavirus-19. Ebola Screen: No symptoms or risks identified at this time. Initial Sepsis Screen: Does the patient meet any 2 criteria? No. Patient's initial sepsis screen is negative. Does the patient have a suspected source of infection? No. Patient's initial sepsis screen is negative. Risk Assessment: Do you want to hurt yourself or someone else? Patient reports no desire to harm self or others. Onset of symptoms was October 17, 2021. 19:28 Method Of Arrival: Wheelchair bb 19:28 Acuity: DEJAN 3 bb 20:08 Note pt decided to go home without being seen. bb Triage Assessment: 19:32 General: Appears in no apparent distress. uncomfortable, Behavior is calm, cooperative. bb Pain: Complains of pain in right side Pain currently is 9 out of 10 on a pain scale. Neuro: Level of Consciousness is awake, alert, obeys commands, Oriented to person, place, time, situation. Cardiovascular: Capillary refill < 3 seconds Patient's skin is warm and dry. Respiratory: Respiratory effort is even, unlabored. GI: Abdomen is round. Derm: Skin is dry, Skin temperature is warm. Musculoskeletal: Circulation, motion, and sensation intact. Historical: - Allergies: 19:32 NKA; bb - PMHx: 19:32 CHF; Diabetes - NIDDM; ESRD; Hypertension; insomnia; bb - PSHx: 19:32 bilateral knee repairs; right sholder; bb - Immunization history:: Client reports receiving the 2nd dose of the Covid vaccine, Pfizer. - Social history:: Smoking status: Patient denies any tobacco usage or history of. Vital Signs: 19:28 BP 158 / 77; Pulse 83; Resp 20 S; Temp 98.9; Pulse Ox 99% on R/A; Weight 86.18 kg (R); bb Height 5 ft. 7 in. (170.18 cm) (R); Pain 9/10; 19:28 Body Mass Index 29.76 (86.18 kg, 170.18 cm) bb ED Course: 18:51 Patient arrived in ED. mr 19:32 Triage completed. bb 19:32 Arm band placed on Patient placed in waiting room, Patient notified of wait time. bb Administered Medications: No medications were administered Outcome: 20:08 Patient left the ED. bb Signatures: Mervat Rojas Lisa Azar, RN RN bb Corrections: (The following items were deleted from the chart) 19:35 19:28 Pulse 83bpm; Resp 20bpm; Spontaneous; Pulse Ox 99% RA; Temp 98.9F; 86.18 kg bb Reported; Height 5 ft. 7 in. Reported; BMI: 29.7; Pain 9/10; bb
[2021-10-18 20:12] VITALS: BP 158/77; TEMP 98.9; O2SAT 99
== END 2021-10-18 20:08 | disposition left against medical advice (07) ==
LOC: ER 18:48
DX: Z53.21 Procedure and treatment not carried out due to patient leaving prior to being seen by health care provider (principal)
CPT/HCPCS: 99281

== ENCOUNTER 2022-01-15 20:36 | Emergency (ER) | payer OTHER ==
--- OUTSIDE RECORDS SUMMARY | 2022-01-15 21:00 | XMS REPORT | Continuity of Care Document ---
:1960 Author Organization [facility] t Address [address] [place] [address] Care Team Providers Name Role Phone FLORES Primary Care Physician Unavailable [id number] Attending Clinician Unavailable BONI SHRESTHA Attending Clinician Unavailable Lorrie Attending Clinician Desirae CRUZ Attending Clinician Forrest OLSEN Attending Clinician Unavailable BONI SANDRA Attending Clinician Unavailable BONI GOMEZ Attending Clinician Unavailable REBEL Attending Clinician Unavailable MOUNA RACHEL Attending Clinician Unavailable RAFA MOORE Attending Clinician Unavailable DOUGLAS ROSENTHAL Attending Clinician Unavailable [id number] Admitting Clinician Unavailable BONI SHRESTHA Admitting Clinician Unavailable BONI SANDRA Admitting Clinician Unavailable MOVPETER Admitting Clinician Unavailable Payers Payer Name Policy Type Policy Number Effective Date Expiration Date S quan [facility] [id number] Problems Condition Condition Condition Status Onset Resolution Last Treating Co mments Source Name Details Category Date Date Treatment Clinician Date ESRD Diagnosis Active 2019-102020-08-12 Mem oria NEEDING 0-29 08:39:00 l DIALYSIS, ESRD 00:00: [place] VOLUME NEEDING 00 OVERLOAD DIALYSIS, VOLUME OVERLOAD Active 08/06/[address] SENT - Diagnosis Active 2019-102020-08-06 Memoria FLUID 16:50:[address] SENT 00:00: Mercedez nn - FLUID 00 OVERLOAD Active 08/06/2020 [place] DIALYSIS Diagnosis Active 2019-102020-07-24 M emoria ISSUE 08:37:00 l DIALYSIS 00:00: Rafael n ISSUE 00 Active 07/24/2020 [place] PERITONITI Diagnosis Active 2020-07-09 Memoria S, 07-06 16:32:00 l DIABETES, 00:00: [place] ESRD ON PERITONITI 00 DIALYSIS S, DIABETES, ESRD ON DIALYSIS Active 07/06/2020 [place] ABD PAIN Diagnosis Active 2020-07-06 M emoria 07-06 07:06:00 l ABD PAIN 00:00: Rafael n 00 Active 07/06/2020 [place] Dyspnea on Dyspnea on Disease Active U nivers exertion exertion 06-21 ity of 00:00: [place] 00 Medical Branch Dyspnea Dyspnea Disease Active Univers 06-21 ity of 00:00: [place] 00 Medical Branch WEAKNESS Diagnosis Active 2020-08-04 M emoria AND 05-21 11:45:00 l SWELLING WEAKNESS 00:00: Herm hannah AND 00 SWELLING Active 05/21/2020 [facility] Colon Colon Disease Active Overview: Univer s cancer cancer 805 Formattin ity of screening screening 00:00: g of this [place] 00 note Medical might be Branch different from the original. Added automatic ally from request for surgery [id number] ESRD (end ESRD (end Disease Active Uni vers stage stage 6-18 ity of renal renal 00:00: [place] disease) disease) 00 Medica l Branch GIB [...] Added automatic ally from request for surgery [id number] NAUSEA/VOM Diagnosis Active 2020-03-23 Memoria ITING 03-23 01:05:00 l 00:00: [place] NAUSEA/VOM 00 ITING Active 03/23/2020 [facility] Obesity Obesity Disease Active Univers (BMI (BMI 5-27 ity of 30-39.9) 30-39.9) 00:00: [place] 00 Medical Branch FEVER Diagnosis Active 2020-02-26 Mem oria 4-27 11:06:00 l FEVER 00:00: [place] 00 Active 02/03/2020 [place] Gallbladde Gallbladde Disease Active Overview : Univers r polyp r polyp 2-06 Formattin ity o f 00:00: g of this 00 note Medical might be Branch different from the original. Added automatic ally from request for surgery [id number] AMS, Diagnosis Active 2019-10-31 Mem oria HYPONATREM 10-28 11:04:00 l IA AMS, 00:00: [place] HYPONATREM 00 IA Active 0 [place] NUMBNESS Diagnosis Active 2019-10-28 M emoria 10-28 20:30:00 l NUMBNESS 00:00: Rafael n 00 Active 10/28/2019 [place] AMS Diagnosis Active 2018-102019-09-23 Mem oria 1 21:56:00 l AMS 10:52: [place] 00 Active 08/14/2019 [place] PNA Diagnosis Active 2019-04-05 Mem oria 04-05 20:15:00 l PNA 00:00: [place] 00 Active 04/05/2019 [place] DIZZINES, Diagnosis Active 2019-04-15 Memoria PNEUMONIA, 04-05 21:55:00 l END STAGE 00:00: [place] RENAL DIS DIZZINES, 00 PNEUMONIA, END STAGE RENAL DIS Active 04/05/2019 [place] ESRD Diagnosis Active 2017-102018-12-14 Mem oria NEEDING 0-13 09:50:00 l DIALYSIS, ESRD 00:00: [place] ACUTE NEEDING 00 PULMONARY DIALYSIS, E ACUTE PULMONARY E Active 07/21/[address] Diagnosis Active 2017-102018-07-21 Mem oria REFERRAL 0-13 21:30:00 l DRVera 00:00: [place] REFERRAL 00 Active 07/21/[address] Diagnosis Active 2017-102018-07-20 Mem oria REFFERAL 0-12 20:08:00 l 00:00: [place] REFFERAL 00 Active 07/20/2018 [facility] RENAL/DO Diagnosis Active 2018-07-31 M emoria NOT USE 05-23 12:39:00 l FOR RENAL/DO 06:00: Rafael n CHARGES NOT USE 00 F/C NOTES FOR O CHARGES F/C NOTES O Active 05/23/2018 [facility] NEW Diagnosis Active 2018-05-23 Mem oria EVALUATION 05-09 10:28:00 l NEW 00:00: [place] EVALUATION 00 Active 05/09/2018 [facility] HYPERTENSI Diagnosis Active 2018-04-16 Memoria VE 04-14 13:14:00 l URGENCY, 08:00: [place] CHEST PAIN HYPERTENSI 00 VE URGENCY, CHEST PAIN Active 04/14/2018 [facility] CHEST PAIN Diagnosis Active 2018-04-15 Memoria 04-14 01:42:00 l CHEST 08:00: [place] PAIN 00 Active 04/14/2018 [facility] ACUTE Diagnosis Active 2018-03-19 Mem oria DYSPNEA 03-16 13:39:00 l ACUTE 00:00: [place] DYSPNEA 00 Active 03/16/2018 [facility] WEAKNESS Diagnosis Active 2018-03-17 M emoria 03-16 05:41:00 l WEAKNESS 00:00: Rafael n 00 Active 03/16/2018 [facility] ESRD (end ESRD (end Disease Active Uni vers stage stage 4-28 ity of renal renal 00:00: [place] disease) disease) 00 Medica l on on Branch dialysis dialysis IN NEED OF Diagnosis [facility] 18:51:00 l IN NEED 00:00: [place] OF 00 DIALYSIS Active 01/22/2018 [facility] SOB Diagnosis Active 2017-12-15 Mem oria 12-15 07:37:00 l SOB 00:00: [place] 00 Active 12/15/2017 [facility] ACUTE Diagnosis Active 2017-12-15 Mem oria RENAL 12-15 10:05:00 l FAILURE, ACUTE 00:00: [place] FLUID RENAL 00 OVERLOAD, FAILURE, CHF FLUID OVERLOAD, CHF Active 12/15/2017 [facility] DM DM Disease Active Univers (diabetes (diabetes ity of mellitus) mellitus) [facility] HTN HTN Disease Active Univers (hypertens (hypertens it y of ion) ion) [facility] DIZZINESS Diagnosis Active 2019-04-15 Memoria AND 21:55:00 l GIDDINESS [place] DIZZINESS AND GIDDINESS Active [facility] DYSPNEA, Diagnosis Active 2018-03-19 M emoria UNSPECIFIE 13:39:00 l D DYSPNEA, Rafael n UNSPECIFIE D Active [facility] ACUTE Diagnosis Active 2017-12-15 Mem oria KIDNEY 10:05:00 l FAILURE, ACUTE [place] UNSPECIFIE KIDNEY D FAILURE, UNSPECIFIE D Active [facility] HEART Diagnosis Active 2017-12-15 Mem oria FAILURE, 10:05:00 l UNSPECIFIE HEART [place] nn D FAILURE, UNSPECIFIE D Active [facility] ACUTE Diagnosis Active 2018-12-14 Mem oria PULMONARY 09:50:00 l EDEMA ACUTE [place] PULMONARY EDEMA Active [facility] End stage Problem 2020-08-14 Me moria renal 23:33:32 l disease End [place] stage renal disease 08/14/2020 [facility] Type 2 Problem 2019-02-10 Memor ia diabetes 12:48:45 l mellitus Type 2 Rafael n with diabetes diabetic mellitus chronic with kidney diabetic disease chronic kidney disease 02/10/2019 [facility] Hypertensi Problem 2019-02-10 M emoria ve chronic 12:48:45 l kidney [place] disease Hypertensi with stage ve chronic 5 chronic kidney kidney disease disease or with stage end stage 5 chronic renal kidney disease disease or end stage renal disease 02/10/2019 [facility] Dependence Problem 2019-02-10 M emoria on renal 12:48:45 l dialysis [place] Dependence on renal dialysis 02/10/2019 [facility] Anxiety Problem 2019-02-06 Kojo lynn disorder, 14:42:13 l unspecifie Anxiety Her meeks d disorder, unspecifie d 02/06/2019 [facility] Sleep Problem 2019-02-10 Memor ia apnea, 12:48:45 l unspecifie Sleep [place] nn d apnea, unspecifie d 02/10/2019 [facility] Other long Problem 2019-02-06 M emoria term 14:42:13 l (current) Other Rafael n drug fpc therapy (current) drug therapy 02/06/2019 [facility] Pericardia Problem 2019-02-10 M emoria l effusion 12:48:45 l (noninflam Rafael n matory) Pericardia l effusion (noninflam matory) 02/10/2019 [facility] Nausea Problem 2019-02-06 Memor ia 14:42:13 l Nausea [place] 02/06/2019 [facility] Other Problem 2019-02-06 Memor ia symptoms 14:42:13 l and signs Other Rafael n concerning symptoms food and and signs fluid concerning intake food and fluid intake 02/06/2019 [facility] Pneumonia, Problem 2019-04-10 M emoria unspecifie 22:02:39 l d organism Rafael n Pneumonia, unspecifie d organism 04/10/2019 [facility] Altered Problem 2019-11-07 Kojo lynn mental 23:47:53 l status, Altered Rafael n unspecifie mental d status, unspecifie d 11/07/2019 [facility] Acute Problem 2019-02-10 Memor ia pulmonary 12:48:45 l edema Acute [place] pulmonary edema 02/10/2019 [facility] Acute Problem 2019-02-10 Memor ia kidney 12:48:45 l failure, Acute [place] unspecifie kidney d failure, unspecifie d 02/10/2019 [facility] Fluid Problem 2019-02-10 Memor ia overload, 12:48:45 l unspecifie Fluid [place] nn d overload, unspecifie d 02/10/2019 [facility] Obesity, Problem 2019-02-10 Mem oria unspecifie 12:48:45 l d Obesity, Rafael n unspecifie d 02/10/2019 [facility] Body mass Problem 2019-02-10 Me moria index 12:48:45 l (BMI) Body [place] 33.0-33.9, mass index adult (BMI) 33.0-33.9, adult 02/10/2019 [facility] Chronic Problem 2019-02-10 Kojo lynn obstructiv 12:48:45 l e Chronic [place] pulmonary obstructiv disease, e unspecifie pulmonary d disease, unspecifie d 02/10/2019 [facility] Dyspnea, Problem 2018-03-23 Mem oria unspecifie 01:53:56 l d Dyspnea, Rafael n unspecifie d 03/23/2018 [facility] Single Problem 2020-08-10 Memor ia liveborn 09:04:08 l , Single [place] delivered liveborn vaginally , delivered vaginally 08/10/2020 [facility] Hypocalcem Problem 2018-03-28 M emoria ia 12:58:31 l [place] Hypocalcem ia 03/28/2018 [facility] Other Problem 2018-03-28 Memor ia disorders 12:58:31 l of Other [place] phosphorus disorders metabolism of phosphorus metabolism 03/28/2018 [facility] Hypo-osmol Problem 2018-03-28 M emoria ality and 12:58:31 l hyponatrem Rafael n ia Hypo-osmol ality and hyponatrem ia 03/28/2018 [facility] Iron Problem 2018-03-28 Memor ia deficiency 12:58:31 l anemia, Iron [place] unspecifie deficiency d anemia, unspecifie d 03/28/2018 [facility] Secondary Problem 2018-03-28 Me moria hyperparat 12:58:31 l hyroidism [place] of 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 03/28/2018 [facility] Acute Problem 2018-03-28 Memor ia diastolic 12:58:31 l (congestiv Acute [place] nn e) heart diastolic failure (congestiv e) heart failure 03/28/2018 [facility] Anemia in Problem 2018-03-28 Me moria other 12:58:31 l chronic Anemia [place] diseases in other classified chronic elsewhere diseases classified elsewhere 03/28/2018 [facility] Atheroscle Problem 2018-03-28 emoria rosis of 12:58:31 l renal [place] artery Atheroscle rosis of renal artery 03/28/2018 [facility] Obstructiv Problem 2018-03-28 M emoria e sleep 12:58:31 l apnea [place] (adult) Obstructiv (pediatric e sleep ) apnea (adult) (pediatric ) 03/28/2018 [facility] Anxiety Problem Resolve 2020-08-14 Mem oria (finding) d 23:33:32 l Anxiety [place] (finding) Resolved Problem 08/14/2020 [facility] Sleep Problem Resolve 2020-08-14 Kojo lynn apnea d 23:33:32 l (finding) Sleep Rafael n apnea (finding) Resolved Problem 08/14/2020 [facility] Pericardia Problem Active 2020-08-14 M emoria l effusion 23:33:32 l (disorder) Rafael n Pericardia l effusion (disorder) Active Problem 08/14/2020 [facility] Simple Problem Active 2020-08-14 Memor ia obesity 23:33:32 l (disorder) Simple Herm hannah obesity (disorder) Active Problem 08/14/2020 [facility] ALTERED Diagnosis Active 2019-10-31 Me moria MENTAL 11:04:00 l STATUS, ALTERED Rafael n UNSPECIFIE MENTAL D STATUS, UNSPECIFIE D Active [place] PERITONITI Diagnosis Active 2020-07-09 Memoria S, 16:32:00 l UNSPECIFIE Rafael n D PERITONITI S, UNSPECIFIE D Active [place] HYPO-OSMOL Diagnosis Active 2019-10-31 Memoria ALITY AND 11:04:00 l HYPONATREM Rafael n IA HYPO-OSMOL ALITY AND HYPONATREM IA Active [place] TYPE 2 Diagnosis Active 2020-07-09 Mem oria DIABETES 16:32:00 l MELLITUS TYPE 2 Rafael n WITHOUT DIABETES COMPLIC MELLITUS WITHOUT COMPLIC Active [place] END STAGE Diagnosis Active 2020-08-12 Memoria RENAL 08:39:00 l DISEASE END [place] STAGE RENAL DISEASE Active [place] FLUID Diagnosis Active 2020-08-12 Mem oria OVERLOAD, 08:39:00 l UNSPECIFIE FLUID [place] nn D OVERLOAD, UNSPECIFIE D Active [facility] SINGLE Diagnosis Active 2020-08-09 Mem oria LIVEBORN 07:58:00 l INFANT, SINGLE [place] DELIVERED LIVEBORN VAGINA INFANT, DELIVERED VAGINA Active [place] PNEUMONIA, Diagnosis Active 2019-04-15 Memoria UNSPECIFIE 21:55:00 l D ORGANISM Rafael n PNEUMONIA, UNSPECIFIE D ORGANISM Active [facility] History of Past Illness Condition Condition Condition Status Onset Resolution Last Treating Co mments Source Name Details Category Date Date Treatment Clinician Date Localized Problem 2019-102020-07-26 2020-07-26 Memoria edema 0-16 21:30:35 21:30:35 l 17:00: [place] Localized 00 edema 07/24/2020 07/26/2020 [facility] Hypokalemi Problem 2019-102020-07-26 2020-07-26 Memoria a 0-16 21:30:35 21:30:35 l 17:00: [place] Hypokalemi 00 a 07/24/2020 07/26/2020 [facility] Type 2 Problem 2020-07-17 2020-07-17 M emoria diabetes 07-06 22:26:03 22:26:03 l mellitus Type 2 17:00: Rafael cee without diabetes 00 complicati mellitus ons without complicati ons 07/06/2020 07/17/2020 [facility] Anemia, Problem 2020-05-23 2020-05-23 Memoria unspecifie 05-21 21:26:40 21:26:40 l d Anemia, 17:00: [place] unspecifie 00 d 05/21/2020 05/23/2020 [facility] Constipati Problem 2020-05-23 2020-05-23 Memoria on, 05-21 21:26:40 21:26:40 l unspecifie 17:00: Rafael cee d Constipati 00 on, unspecifie d 05/21/2020 05/23/2020 [facility] Pain in Problem 2020-02-05 2020-02-05 Memoria right hip 02-02 21:56:20 21:56:20 l Pain in 17:00: [place] right hip 00 02/03/2020 02/05/2020 [facility] Fever, Problem 2020-02-05 2020-02-05 M emoria unspecifie 02-02 21:56:20 21:56:20 l d Fever, 17:00: [place] unspecifie 00 d 02/03/2020 02/05/2020 [facility] Unspecifie Problem 2020-02-05 2020-02-05 Memoria d fall, 02-02 21:56:20 21:56:20 l initial 17:00: [place] encounter Unspecifie 00 d fall, initial encounter 02/03/2020 02/05/2020 [facility] Other Problem 2017-102019-02-10 2019-02-10 M emoria specified 12:48:45 12:48:45 l complicati Other 04:09: [place] nn on of specified 04 vascular complicati prosthetic on of devices, vascular implants prosthetic and devices, grafts, implants initial and encounter grafts, initial encounter 07/31/2018 02/10/2019 [place] Hyperkalem Problem 2017-2019-02-06 2019-02-06 Memoria ia 0-12 14:42:13 14:42:13 l 05:00: [place] Hyperkalem 00 ia 07/20/2018 02/06/2019 [place] Unspecifie Problem 2017-2019-02-06 2019-02-06 Memoria d 0-12 14:42:13 14:42:13 l complicati 05:00: Rafael n on of Unspecifie 00 internal d prosthetic complicati device, on of implant internal and graft, prosthetic initial device, encounter implant and graft, initial encounter 07/20/2018 02/06/2019 [place] Hypertensi Problem 2017-2018-03-28 2018-03-28 Memoria ve heart 3- 12:58:31 12:58:31 l disease 03:49: [place] with heart Hypertensi 05 failure ve heart disease with heart failure 12/28/2017 03/28/2018 [place] Chronic Problem 2018-01-25 2018-01-25 Memoria kidney -16 04:46:18 04:46:18 l disease, Chronic 05:00: [place] nn unspecifie kidney 00 d disease, unspecifie d 01[facility]22[facility]2018 [facility], Adverse Reactions, Alerts Allergy Allergy Status Severity Reaction(s) Onset Inactive Treating Comm ents Source Name Type Date Date Clinician NO KNOWN Drug Active Univers ALLERGIE Class [facility] Social History Social Habit Start Date Stop Date Quantity Comments Source History [facility] 2020-03-23 2020-03-23 5 [facility] Financial 00:00:00 00:00:00 Medical Branch History [facility] Food 2020-03-23 2020-03-23 1 Univers ity [facility] Worry 00:00:00 00:00:00 Medical Branch History [facility] Food 2020-03-23 2020-03-23 1 [facility] ity [facility] Scarcity 00:00:00 00:00:00 Medical Branch History SDOH 2020-03-23 2020-03-23 2 [facility] Transport Med 00:00:00 00:00:00 Medical Bra nch History SDVT 2020-03-23 2020-03-23 2 [facility] Transport Non-Med 00:00:00 00:00:00 Medical Branch Tobacco use and 2020-03-04 2020-03-04 Never used [facility] exposure 00:00:00 00:00:00 Medical Branch Social History 2017-12-15 2017-12-15 [facility] 18:14:42 18:14:42 Sex [birth year] [facility] 00:00:00 00:00:00 Medical Branch Smoking Status Start Date Stop Date Source Never smoker [facility] Medications Ordered Filled Start Stop [...] 18:10: INJ, ONCE, Stop date: 08/12/20 12:10:00 VALANCE CUTTER lidocaine 2019-10 No Route: IV, Me moria (ANES) 10-12 Drug form: l 18:10: INJ, ONCE, Stop date: 08/12/20 12:10:00 VALANCE CUTTER propofol 2019-10 No Route: IV, Mem oria (ANES) 10-12 Drug form: l 18:10: INJ, ONCE, Stop date: 08/12/20 12:10:00 VALANCE CUTTER ondansetron 2019-10 No Route: IV, Memoria (ANES) 10-12 Drug form: l 18:10: INJ, ONCE, Stop date: 08/12/20 12:10:00 VALANCE CUTTER metoclopram 2019-10 No Route: IV, Memoria jeanna (ANES) 10-12 Drug form: l 18:10: INJ, ONCE, Stop date: 08/12/20 12:10:00 VALANCE CUTTER ceFAZolin 2019-10 No Route: IV, Me moria (ANES) 10-12 Drug form: l 17:50: INJ, ONCE, Stop date: 08/12/20 11:50:00 VALANCE CUTTER Sodium 2019- No Route: IV, Memor ia Chloride - Total l 0.9% IV 17:14: Volume: [place] (ANES) 500 00 500, Start mL date: 08/12/20 11:14:00 VALANCE CUTTER, Stop date: 08/12/20 12:14:00 VALANCE CUTTER Sodium 2019-10 No 500 mL, Memoria Chloride 10-12 Rate: 75 l 0.9% IV 500 16:52: ml/hr, Herm hannah mL 00 Infuse over: 6.7 hr, Route: IV, Dosing Weight 111.182 kg, Total Volume: 500, Start date: 08/12/20 10:52:00 VALANCE CUTTER, Duration: 1 doses or times, Stop date: 08/12/20 17:33:00 VALANCE CUTTER, 2.32, m2, 0 Potassium 2019-10 No Notes: [...] s with feeding tube less than 14 Brazilian (Dobhoff, J-tube etc) and pediatric and patients. Hydralazine 2019-10 No 10 mg, Kojo lynn - Route: l 21:11: IVP, Q4H, Dosing Weight 111.182, kg, PRN Hypertensi on, Start date: 08/11/20 15:11:00 VALANCE CUTTER, Duration: 30 day, Stop date: 09/10/20 15:10:00 VALANCE CUTTER Potassium 2019- No Notes: Memori a Chloride - (Same as: l 14:12: K-Dur 20) [place] 00 "Do Not Crush" Give with food and full glass of water For patients unable to swallow tablet, dissolve in one half glass of water. Allow about 2 minutes for the tablets to disintegra te. Stir before giving to prepare slurry and administer . Please exclude Patient s with feeding tube less than 14 [place] (Dobhoff, J-tube etc) and pediatric and patients. epoetin 2019-10 No Notes: Memoria franca 10-10 (Same as: l 15:00: Procrit) epoetin franca 2000 unit/1 ml VL Non-formul heydi For dialysis use only (Epogen) WASTE: F/P - Red; E -Red MEDICATION WASTE Product Size: 2000 mg Product Wasted: ___ mg Ambien 2019-10 No Notes: Memoria 10-10 (Same As: l 04:24: Ambien) [place] Melatonin 3 2019-10 No Notes: Kojo lynn [...] - unit, 10 l 15:10: mL, Route: DIALYSIS, Drug form: INJ, ONCALL, Dosing Weight 111.182, kg, PRN Dialysis, Priority: STAT, Start date: 08/09/20 9:10:00 VALANCE CUTTER, Duration: 1 doses or times, Stop date: Limited # of times, 0 tramadol 2019-10 No Notes: Not Mem oria hydrochlori 10-09 to exceed l de 50 MG 05:16: 400mg/day. Her meeks Oral Tablet 00 (Same As: Ultram) epoetin 2019-10 No Notes: Memoria franca 0-31 (Same as: l 14:30: Procrit) epoetin franca 88571 unit/1 ml VL. Non-formul heydi For dialysis use only. (Procrit) WASTE: F/P - Red; E -Red MEDICATION WASTE Product Size: 13026 unit Product Wasted: ___ unit Sodium 2019-10 No 250 mL, Memoria Chloride 0-31 Rate: To l 0.9% 14:13: prime line [place] (titrate) 00 and flush 250 mL remaining blood products., Dosing Weight 111.182, kg, Route: IV, Total Volume: 250, Priority: Routine, Start Date: 08/08/20 9:13:00 CDT, Duration: 1 day, Stop date: 08/09/20 9:12:00 VALANCE CUTTER, Replace Every: 24 hr, 0 Amlodipine 2019-10 No 1 cap, Memor ia 10 MG / 0-31 Route: PO, l Benazepril 14:00: Drug Form: H ermann hydrochlori 00 CAP, de 20 MG Dosing Oral Weight Capsule 111.182, kg, Daily, Start date: 08/08/20 9:00:00 CDT, Duration: 30 day, Stop date: 09/06/20 9:00:00 VALANCE CUTTER carvedilol 2019-10 No 12.5 mg, Mem oria 0-31 Route: PO, l 14:00: Drug form: [place] 00 TAB, Q12H, Dosing Weight 111.182, kg, Start date: 08/08/20 9:00:00 CDT, Duration: 30 day, Stop date: 09/06/20 21:00:00 VALANCE CUTTER amLODIPine 2019-10 No Notes: Memor ia 0-31 (Same as: l 14:00: Norvasc) [place] 00 lisinopril 2019-10 No Notes: Memor ia 0-31 (Same as: l 14:00: Prinivil, [place] 00 Zestril) Dilaudid 2019-10 No Notes: Memoria 0-31 Same as: l 13:46: Dilaudid Epogen 2019-10 No 11,000 Memoria 0-31 unit, l 13:01: Route: [place] 00 SUB-Q, Drug form: INJ, Q-M-W-F, Dosing Weight 111.182, kg, Priority: NOW, Start date: 08/08/20 8:01:00 CDT, Duration: 30 day, Stop date: 09/04/20 9:00:00 VALANCE CUTTER Morphine 2019-10 No Notes: Memoria 0-31 (Same l 10:27: as:MORPhin [place] 00 e Sulfate) Morphine 2019-10 No Notes: Memoria 0-31 (Same l 01:44: as:MORPhin [place] e Sulfate) normal 2019-10 No 2,000 mL, Memori a saline 0.9% 0-30 Rate: 100 l IV 2,000 mL 22:22: ml/hr, Herm hannah 00 Infuse over: 20 hr, Route: IV, Dosing Weight 111.182 kg, Total Volume: 2,000, Start date: 08/07/20 17:22:00 CDT, Duration: 30 day, Stop date: 09/06/20 17:21:00 VALANCE CUTTER, 2.32, m2, 0 Lasix 2019-10 No 80 mg, Memoria 0-30 Route: l 13:00: IVP, Drug form: INJ, BID Diuretic, Dosing Weight 117.002, kg, Start date: 08/07/20 8:00:00 CDT, Duration: 30 day, Stop date: 09/05/20 16:00:00 VALANCE CUTTER Magnesium 2019-10 No Notes: Memori a Sulfate 0-30 WASTE: F/P l 12:58: - Sink; E [place] - Municipal Trash [...] s with feeding tube less than 14 Brazilian (Dobhoff, J-tube etc) and pediatric and patients. Potassium 2019-10 No Notes: Memori a Chloride 0-30 Infuse at l 11:00: a rate of [place] 00 10 mEq/hr. (Same as: KCL) normal [...] Duration: 30 day, Stop date: 09/06/20 5:36:00 VALANCE CUTTER, 2.32, m2 Hydralazine 2019-10 No Notes: Kojo lynn Hydrochlori 0-30 (Same as: l de 50 MG 06:50: Apresoline Her meeks Oral Tablet ) May interfere w/enteral feedings Take With Food. Ambien 2019-10 No Notes: Memoria 0-30 (Same As: l 05:20: Ambien) [place] 00 heparin 2019-10 No Notes: Memoria 0-30 porcine l 05:00: heparin [place] 00 Lasix 2019-10 No Notes: Memoria 0-30 (Same as: l 01:32: Lasix) [place] 00 MEDICATION WASTE Product Size: 40 mg [...] 10 MG Oral hen. Tablet (Same as: [[place] 10/325] 325/10) Acetaminoph 2019-10 No Notes: Kojo lynn en 325 MG / 0-30 (Same as: l Hydrocodone 01:31: [place] nn Bitartrate 00 325/5) Do 5 MG Oral not exceed Tablet 4gm/day of [Belle acetaminop 5/325] hen. Dilaudid 2019-10 No 1 mg, Memoria 0-30 Route: l 01:16: IVP, ONCE, [place] 00 Dosing Weight 117.002, kg, Priority: STAT, Start date: 08/06/20 20:16:00 CDT, Stop date: 08/06/20 20:16:00 CDT Dextrose 2019- No 12.5 gm, Memor ia 50% Syringe 0-30 25 mL, l (D50W) 01:09: Route: IVP, Drug Form: INJ, Dosing Weight 117.002, kg, PRN, PRN Blood Glucose Results, Start date: 08/06/20 20:09:00 CDT, Duration: 30 day, Stop date: 09/05/20 19:08:00 VALANCE CUTTER, 0 Glucagon 2019-10 No 1 mg, Memoria 0-30 Route: IM, l 01:09: Drug form: PDR/INJ, PRN, Dosing Weight 117.002, kg, PRN Blood Glucose Results, Start date: 08/06/20 20:09:00 CDT, Duration: 30 day, Stop date: 09/05/20 19:08:00 VALANCE CUTTER, 0 Magnesium 2019- No Notes: Memori a [...] s with feeding tube less than 14 Brazilian (Dobhoff, J-tube etc) and pediatric and patients. Dilaudid 2019-10 No 1 mg, Memoria 0-29 Route: l 23:27: IVP, ONCE, Dosing Weight 117.002, kg, Priority: STAT, Start date: 08/06/20 18:27:00 CDT, Stop date: 08/06/20 18:27:00 CDT Potassium 2019-10 No 40 mEq, Memor ia Chloride 0-29 Route: PO, l 22:56: Drug form: ERTAB, ONCE, Dosing Weight 117.002, kg, Priority: STAT, Start date: 08/06/20 17:56:00 CDT, Stop date: 08/06/20 17:56:00 CDT Morphine 2019-10 No 4 mg, Memoria 0-29 Route: l 22:44: IVP, ONCE, [place] 00 Dosing Weight 117.002, kg, Priority: STAT, [...] 20 MG Pharmacy: [facility], 170.18, cm, 07/06/20 5:14:00 CDT, Height, 105, kg, 07/06/20 5:14:00 CDT, Weight cefdinir 2019-10 Yes 300 mg = 1 Mem oria 300 MG Oral 0-07 cap, PO, l Capsule 17:35: Daily, X 7 Herm hannah 00 day, # 7 cap, 0 Refill(s), Pharmacy: [facility], 170.18, cm, 07/06/20 5:14:00 CDT, Height, 105, kg, 07/06/20 5:14:00 CDT, Weight Metronidazo 2019-10 Yes 500 mg = 1 Memoria le 500 MG 0-07 tab, PO, l Oral Tablet 17:35: Q8H, X 7 He rmann [Flagyl] 00 day, # 21 tab, 0 Refill(s), Pharmacy: [facility] [place], 170.18, cm, 07/06/20 5:14:00 CDT, Height, 105, [...] s with feeding tube less than 14 Brazilian (Dobhoff, J-tube etc) and pediatric and patients. Clonidine 2019-10 No Notes: Memori a 0-06 (Same As: l 22:46: Catapres) [place] 00 Sucralfate 2019-10 No Notes: May M emoria 100 MG/ML 0-06 interfere l Oral 18:00: w/enteral [place] Suspension 00 feeds - [Carafate] Take 1 hr before or 2 hr after antacids, dairy pdt, meals & minerals - On empty stomach. sevelamer 2019-10 No Notes: Memori a 0-06 Same as: l 17:00: Renvela [place] 00 Potassium 2019-10 No Notes: Memori a [...] s with feeding tube less than 14 Brazilian (Dobhoff, J-tube etc) and pediatric and patients. Ceftriaxone 2019-10 No Notes: Kojo lynn 0-05 (Same As: l 23:00: Rocephin). [place] 00 Use with 100 mL NS and [...] s with feeding tube less than 14 Brazilian (Dobhoff, J-tube etc) and pediatric and patients. vancomycin 2019-10 No Notes: Memor ia + Sodium 0-04 TIME l Chloride 23:00: CRITICAL [place] nn 0.9% IV 100 00 MEDICATION mL (Same As: Vancocin) For adult patients only: Round to nearest 250 mg per Medical Staff approval Potassium 2019-10 No Notes: Memori a Chloride 0-04 (Same as: l 15:16: K-Dur 20) [place] "Do Not Crush" Give with food and full glass of water For patients unable to swallow tablet, dissolve in one half glass of water. Allow about 2 minutes for the tablets to disintegra te. Stir before giving to prepare slurry and administer . Please exclude Patient s with feeding tube less than 14 Brazilian (Dobhoff, J-tube etc) and pediatric and patients. Flagyl 2019-10 No Notes: Memoria 0-03 (Same as: l 23:00: Flagyl) [place] Avoid alcohol. Potassium 2019-10 No Notes: Memori a Chloride 0-03 (Same as: l 16:13: K-Dur 20) [place] 00 "Do Not Crush" Give with food and full glass of water For patients unable to swallow tablet, dissolve in one half glass of water. Allow about 2 minutes for the tablets to disintegra te. Stir before giving to prepare slurry and administer . Please exclude Patient s with feeding tube less than 14 Brazilian (Dobhoff, J-tube etc) and pediatric and patients. vancomycin 2019-10 No Notes: Memor ia + Sodium 0-02 TIME l Chloride 18:00: CRITICAL [place] nn 0.9% IV 100 00 MEDICATION mL (Same As: Vancocin) For adult patients only: Round to nearest 250 mg per Medical Staff approval Zofran 2019-10 No Notes: Memoria 0-01 (Same as: l 19:33: Zofran) [place] 00 Dextrose 2019-10 No 12.5 gm, Memor ia 50% Syringe 0-01 25 mL, l (D50W) 19:27: Route: [place] IVP, Drug Form: INJ, Dosing Weight 105, kg, PRN, PRN Blood Glucose Results, Start date: 07/09/20 14:27:00 CDT, Duration: 30 day, Stop date: 08/08/20 14:26:00 CDT, 0 Glucagon 2019-10 No 1 mg, Memoria 0-01 Route: IM, l 19:27: Drug form: [place] 00 PDR/INJ, PRN, Dosing Weight 105, kg, [...] s with feeding tube less than 14 Brazilian (Dobhoff, J-tube etc) and pediatric and patients. vancomycin No Notes: Memor ia + Sodium 9-30 TIME l Chloride 21:00: CRITICAL [place] nn 0.9% IV 100 00 MEDICATION mL (Same As: Vancocin) For adult patients only: Round to nearest 250 mg per Medical Staff approval Potassium 2020-0 No Notes: Memori a Chloride [...] s with feeding tube less than 14 Brazilian (Dobhoff, J-tube etc) and pediatric and patients. Tylenol No Notes: Do Memor ia 07-07 not exceed l 15:39: 4 gm/day. [place] (Same as: Tylenol) Roxicodone No Notes: Memor [...] interfere w/enteral feedings. Take With Food Miralax 2019- No Notes: Memoria 07-07 Dissolve l 14:00: in 8 oz of water or juice. (Same as: Miralax) cefepime No Notes: Memoria 07-07 (Same As: l 14:00: Maxipime) MEDICATION WASTE Product Size: 1000 mg Product Wasted: ___ mg Amlodipine No Notes: Memor ia 07-07 (Same as: l 14:00: Norvasc) enalapril 2019- No Notes: Memori a 07-07 (Same as: l 14:00: Vasotec) Potassium 2019-0 No Notes: Memori a Chloride 07-07 (Same as: l 13:09: K-Dur 20) [place] "Do Not Crush" Give with food and full glass of water For patients unable to swallow tablet, dissolve in one half glass of water. Allow about 2 minutes for the tablets to disintegra te. Stir before giving to prepare slurry and administer . Please exclude Patient s with feeding tube less than 14 Brazilian (Dobhoff, J-tube etc) and pediatric and patients. Epogen 0 No Notes: Memoria 07-07 Same as: l 13:08: Retacrit) [place] epoetin franca-epbx 46153 unit/1 ml VL. WASTE: F/P - Red; E Red MEDICATION WASTE Product Size: 63973 unit Product Wasted: ___ unit potassium No [...] s with feeding tube less than 14 Brazilian (Dobhoff, J-tube etc) and pediatric and patients. carvedilol No Notes: Memor ia 07-07 Give with l 02:00: food. [place] (Same As: Coreg) tamsulosin No Notes: Memor ia 07-07 (Same As: l 02:00: Flomax) [place] "Do Not Crush" ferric Yes See Memoria [...] not exceed l #3 17:42: 4gm/day of [place] acetaminop hen. (Same as: Tylenol with Codeine # 3) Diazepam No Notes: Memoria 07-06 (Same as: l 17:42: Valium) [place] potassium No Notes: Memori a chloride 07-06 (Same as: l 16:00: Potassium [place] 00 Chloride) Hydromorpho No Notes: Kojo lynn ne 07-06 Same as: l 13:57: Dilaudid [place] Acetaminoph No Notes: Do M emoria en 325 MG / 07-06 not exceed l Hydrocodone 13:57: 4gm/day of [place] Bitartrate 00 acetaminop 10 MG Oral hen. Tablet (Same as: [[place] 10/325] 325/10) Potassium No 60 mEq, Memor [...] 1000 mg Product Wasted: ___ mg Vancomycin 2019- No 2000 mg: Me moria 07-06 infuse l 11:04: over 2.5 hours For adult patients only: Round to nearest 250 mg per Medical Staff approval MEDICATION WASTE Product Size: 1000 mg Product Wasted: ___ mg Morphine 2019-0 No Notes: Memoria 07-06 (Same l 10:32: as:MORPhin e Sulfate) furosemide 2020-0 Yes [id number] 80mg Take 1 U nivers (LASIX) 80 9-15 tablet by ity of mg tablet 00:00: mouth [place] 00 every Medical morning Branch and evening. tamsulosin 2019-0 Yes [id number] .4mg Take 1 U nivers 0.4 mg 24 9-15 capsule by ity of hr capsule 00:00: mouth [place] 00 daily. Medical Branch Acetaminoph 2019-0 No Notes: Do M emoria [...] l 13:33: in 8 oz of [place] water or juice. (Same as: Miralax) calcium 2020-0 Yes [id number] 1334mg Take 2 Un seun acetate 667 6-22 capsules ity of mg capsule 00:00: by mouth 3 [place] 00 (three) Medical times Branch daily with meals. Morphine 2020-0 No 4 mg, Memoria 6-15 Route: l 13:48: IVP, ONCE, [place] 00 Dosing Weight 104, kg, Priority: STAT, [...] TAB, 5 MG Oral Dosing Tablet Weight [Belle 104, kg, 5/325] ONCE, STAT, Start date: 03/23/20 5:53:00 CDT, Stop date: 03/23/20 5:53:00 CDT Acetaminoph 2020-0 No Notes: Do M emoria en 325 MG / 6-15 not exceed l Hydrocodone 09:02: 4gm/day of [place] Bitartrate 00 acetaminop 10 MG Oral hen. Tablet (Same as: [[place] 10/325] 325/10) Sodium 2020-0 No 250 mL, Memoria Chloride 6-15 Rate: To l 0.9% 06:23: prime line [place] (titrate) 00 and flush 250 mL remaining blood products., Dosing Weight 104, kg, Route: IV, Total Volume: 250, Priority: Routine, Start Date: 03/23/20 1:23:00 CDT, Duration: 1 day, Stop date: 06/16/20 1:22:00 CDT, Replace Every: 24 hr, 0 Acetaminoph Yes 1 tab, PO, Memoria en 300 MG / 02-02 Q6H, X 3 l Codeine 22:40: day, # 12 [place] nn Phosphate 00 tab, 0 30 MG Oral Refill(s) Tablet [Tylenol with Codeine #3] Dilaudid No Notes: Memoria 02-02 Same as: l 22:39: Dilaudid [place] 00 Hydralazine No 50 mg, 1 Me moria Hydrochlori - tab, l de 50 MG 22:20: Route: PO, Her meeks Oral Tablet 00 Drug form: TAB, ONCE, Dosing Weight 104.545, kg, Start date: 02/03/20 17:20:00 CDT, Stop date: 02/03/20 17:20:00 CDT Zofran No Notes: Memoria 02-02 (Same as: l 20:19: Zofran) [place] 00 MEDICATION WASTE Product Size: 4 mg Product Wasted: ___ mg Morphine No Notes: Memoria 02-02 (Same l 20:18: as:MORPhin [place] 00 e Sulfate) Acetaminoph Yes 1-2 tab, Me moria en 325 MG / -28 PO, Q4-6H, l Hydrocodone 20:46: PRN Pain, H ermann Bitartrate 00 X 5 day, # 10 MG Oral 20 tab, 0 Tablet Refill(s), [Belle Pharmacy: ] [facility] vancomycin No 2001 mg: Me moria - infuse l 19:00: over 2.5 [place] 00 hours For adult patients only: Round to nearest 250 mg per Medical Staff approval MEDICATION WASTE Product Size: 1000 mg Product Wasted: ___ mg Amlodipine 2019- No 1 cap, Memor ia 10 MG / 11-04 Route: PO, l Benazepril 19:00: Drug Form: H ermann hydrochlori 00 CAP, de 20 MG Dosing Oral Weight Capsule 99.091, kg, TID, Start date: 11/04/19 13:00:00 VALANCE CUTTER, Duration: 30 day, Stop date: 12/04/19 9:00:00 VALANCE CUTTER amLODIPine No Notes: Memor ia 11-04 (Same as: l 19:00: Norvasc) [place] 00 lisinopril No Notes: Memor ia 11-04 (Same as: l 19:00: Prinivil, [place] Zestril) Amlodipine Yes 1 cap, PO, M emoria 10 MG / 11-04 TID, 0 l Benazepril 16:40: Refill(s) He rmann hydrochlori 00 de 20 MG Oral Capsule Potassium No Notes: Memori a Chloride 11-04 (Same as: l 16:23: K-Dur 20) [place] 00 "Do Not Crush" Give with food and full glass of water For patients unable to swallow tablet, dissolve in one half glass of water. Allow about 2 minutes for the tablets to disintegra te. Stir before giving to prepare slurry and administer . Please exclude Patient s with feeding tube less than 14 Brazilian (Dobhoff, J-tube etc) and pediatric and patients. epoetin No Notes: Memoria franca 11-04 (Same as: l 15:00: Procrit) epoetin franca 06977 unit/1 ml VL. For dialysis use only. (Procrit) WASTE: F/P - Red; E -Red MEDICATION WASTE Product Size: 93131 unit Product Wasted: ___ unit Lisinopril No Notes: Memor ia 11-04 (Same as: l 14:47: Prinivil, [place] 00 Zestril) Vancomycin No 2000 mg: Me moria 11-04 [...] s with feeding tube less than 14 Brazilian (Dobhoff, J-tube etc) and pediatric and patients. Epogen No Notes: Memoria 11-03 (Same as: l 15:32: Procrit) [place] 00 epoetin franca 88534 unit/1 ml VL. For dialysis use only. (Procrit) WASTE: F/P - Red; E -Red MEDICATION WASTE Product Size: 88332 unit Product Wasted: ___ unit Dilaudid No Notes: Memoria 1-25 Same as: l 18:03: Dilaudid [place] 00 heparin No 10,000 Memoria 1-25 unit, 10 l 02:00: mL, Route: [place] 00 DIALYSIS, Drug form: INJ, ONCALL, Dosing Weight 99.091, kg, Start date: 11/01/19 20:00:00 VALANCE CUTTER, Duration: 1 doses or times, 0 vancomycin No Notes: Memor ia + Sodium 1-24 TIME l Chloride 20:00: CRITICAL [place] nn 0.9% IV 100 00 MEDICATION mL (Same As: Vancocin) For adult patients only: Round to nearest 250 mg per Medical Staff approval potassium No Notes: Memori a chloride -24 (Same as: l 19:51: K-Dur 20) [place] 00 "Do Not Crush" Give with food and full glass of water For patients unable to swallow tablet, dissolve in one half glass of water. Allow about 2 minutes for the tablets to disintegra te. Stir before giving to prepare slurry and administer . Please exclude Patient s with feeding tube less than 14 Brazilian (Dobhoff, J-tube etc) and pediatric and patients. Dilaudid No Notes: Memoria 1-24 Same as: l 18:47: Dilaudid [place] 00 Potassium 2020-0 No Notes: Memori a Chloride 1-24 (Same as: l 16:00: K-Dur 20) [place] 00 "Do Not Crush" Give with food and full glass of water For patients unable to swallow tablet, dissolve in one half glass of water. Allow about 2 minutes for the tablets to disintegra te. Stir before giving to prepare slurry and administer . Please exclude Patient s with feeding tube less than 14 Brazilian (Dobhoff, J-tube etc) and pediatric and patients. heparin 2020-0 No 10,000 Memoria 1-24 unit, 10 l 01:00: mL, Route: [place] 00 DIALYSIS, Drug form: INJ, ONCALL, Dosing Weight 99.091, kg, Start date: 10/31/19 19:00:00 VALANCE CUTTER, Duration: 1 doses or times, 0 Albuterol 2019-0 No Notes: Memori a 0.833 MG/ML 1-23 (Same as: l 15:09: Duoneb) Ipratropium 00 [place] 0.167 MG/ML Inhalant Solution [DuoNeb] Potassium 2020-0 [...] s with feeding tube less than 14 Brazilian (Dobhoff, J-tube etc) and pediatric and patients. heparin 2020-0 No 10,000 Memoria 1-23 unit, 10 l 05:00: mL, Route: [place] 00 DIALYSIS, Drug form: INJ, ONCALL, Dosing Weight 99.091, kg, Start date: 10/30/19 23:00:00 VALANCE CUTTER, Duration: 1 doses or times, 0 Potassium 2020-0 No Notes: Memori a Chloride 1-23 (Same as: l 04:05: K-Dur 20) [place] 00 "Do Not Crush" Give with food and full glass of water For patients unable to swallow tablet, dissolve in one half glass of water. Allow about 2 minutes for the tablets to disintegra te. Stir before giving to prepare slurry and administer . Please exclude Patient s with feeding tube less than 14 Brazilian (Dobhoff, J-tube etc) and pediatric and patients. Tylenol 2019-0 No Notes: Do Memor ia 10-30 not exceed l 19:42: 4 gm/day. [place] 00 (Same as: Tylenol) Roxicodone 2019-0 No Notes: Memor ia - (Same as: l 19:41: Roxicodone [place] 00 ) Acetaminoph 2020-0 No 1 tab, Kojo lynn en 325 MG / 10-30 Route: PO, l Oxycodone 19:20: Drug Form: Jarad rider Hydrochlori 00 TAB, de 5 MG Dosing Oral Tablet Weight [Percocet 99.091, 5/325] kg, Q4H, PRN Pain Score 4-6, Start date: 10/30/19 13:20:00 VALANCE CUTTER, Duration: 30 day, Stop date: 11/29/19 13:19:00 VALANCE CUTTER vancomycin No 2000 mg: Me moria + Sodium 10-30 infuse l Chloride 18:00: over 2.5 [place] nn 0.9% IV 250 00 hours For mL adult patients only: Round to nearest 250 mg per Medical Staff approval MEDICATION WASTE Product Size: 1000 mg Product Wasted: ___ mg cefepime 0 No Notes: Memoria 10-30 (Same As: l 16:00: Maxipime) 00 MEDICATION WASTE Product Size: 1000 mg Product Wasted: ___ mg Vancomycin 2019-0 No 2000 mg: Me moria 10-30 infuse [...] Crush" "Avoid grapefruit and grapefruit juice" Tim-Conor 2019-0 No Tim-Conor Mem oria oral tablet 10-30 oral l 15:00: tablet, 1 [place] 00 tab, Route: PO, Daily, 10/30/19 9:00:00 VALANCE CUTTER, Duration: 30 day, Stop date: 11/28/19 9:00:00 VALANCE CUTTER Nephro-Conor No Notes: Kojo lynn Rx 10-30 (Same as: l 15:00: Nephro-Vit [place] 00 e Rx and Diatx) Give with food. Epoetin No Notes: Memoria Franca 10-30 (Same as: l 14:39: Procrit) epoetin franca 70656 unit/1 ml VL. For dialysis use only. (Procrit) WASTE: F/P - Red; E -Red MEDICATION WASTE Product Size: 54967 unit Product Wasted: ___ unit Potassium No [...] s with feeding tube less than 14 Brazilian (Dobhoff, J-tube etc) and pediatric and patients. carvedilol No Notes: Memor ia - Give with l 03:00: food. [place] 00 (Same As: Coreg) tamsulosin No Notes: Memor ia - (Same As: l 03:00: Flomax) "Do Not Crush" Lactulose No Notes: Memori a 667 MG/ML 10-30 (Same l Oral 00:36: as:Chronul [place] Solution 00 ac) Lactulose No Notes: Memori a - Lactulose l 00:36: 300ml, [place] Water for Irrigation 700ml - total volume = 1000ml tizanidine No Notes: Memor ia - (Same As: l 22:22: Zanaflex) Hydralazine No Notes: Kojo lynn Hydrochlori 10-29 (Same as: l de 25 MG 22:00: Apresoline Her meeks Oral Tablet ) May interfere w/enteral feedings Take With Food. calcium Yes 2,001 mg = Kojo lynn acetate 667 10-29 3 cap, PO, l MG Oral 21:57: TID, 0 Refill(s) Diazepam No Notes: Memoria 10-29 (Same as: l [...] s with feeding tube less than 14 Brazilian (Dobhoff, J-tube etc) and pediatric and patients. [...] Blood Glucose Results, Start date: 10/29/19 0:50:00 VALANCE CUTTER, Duration: 30 day, Stop date: 11/28/19 0:49:00 VALANCE CUTTER, 0 Glucagon No 1 mg, Memoria 10-29 Route: IM, l 06:50: Drug form: PDR/INJ, PRN, Dosing Weight 90.909, kg, PRN Blood Glucose Results, Start date: 10/29/19 0:50:00 VALANCE CUTTER, Duration: 30 day, Stop date: 11/28/19 0:49:00 VALANCE CUTTER, 0 Ondansetron No Notes: Kojo lynn 10-29 [...] l / 03:22: Duoneb) [place] Ipratropium 00 [place] 0.167 MG/ML Inhalant Solution [DuoNeb] Albuterol No Notes: SEE Me moria 0.83 MG/ML 10-29 RT l Inhalant 03:22: DOCUMENTAT Her meeks Solution 00 ION (Same as: Proventil) carvedilol 2018-10 Yes 12.5 mg = Me moria 12.5 mg 10-20 1 tab, PO, l oral tablet 17:56: Q12H, # 60 [place] 00 tab, 0 Refill(s), Pharmacy: [facility] Furosemide 2018-10 Yes 80 mg = 2 Me moria 40 MG Oral 1-12 tab, PO, l Tablet 17:56: TID, # 180 [place] nn 00 tab, 0 Refill(s), Pharmacy: [facility] Hydralazine 2018-10 Yes 50 mg = 2 M emoria Hydrochlori 1-12 tab, PO, l de 25 MG 17:56: Q8H, # 180 Her meeks Oral Tablet 00 tab, 0 Refill(s), Pharmacy: [facility] lisinopril 2018-10 Yes 40 mg = 1 Me moria 40 mg oral 1-12 tab, PO, l tablet 17:56: Daily, # [place] 00 30 tab, 0 Refill(s), Pharmacy: [facility] NIFEdipine 2018-10 Yes 90 mg = 1 Me moria 90 mg oral 1-12 tab, PO, l tablet, 17:56: Daily, # Rafael n extended 00 30 tab, 0 release Refill(s), Pharmacy: [facility] carvedilol 2018-10 No Notes: Memor ia 1-12 Give with l 03:00: food. (Same As: Coreg) NIFEdipine 2018-10 No 90 mg, Memor ia 60 mg oral -11 Route: PO, l tablet, 15:00: Drug form: Herm hannah extended 00 ERTAB, release Daily, Dosing Weight 96.364, kg, Start date: 08/19/19 9:00:00 VALANCE CUTTER, Duration: 30 day, Stop date: 09/17/19 9:00:00 VALANCE CUTTER, 0 lisinopril 2018-10 No Notes: Memor ia [...] 1-10 (Same as: l 20:11: Prinivil, [place] Zestril) NIFEdipine 2018-10 No Notes: Memor ia 60 mg oral 1-10 (Same as: l tablet, 20:09: Adalat CC, Herm hannah extended Procardia release XL) Give on empty stomach. Take 1 hour before or 2 hours after meal; "Avoid grapefruit and grapefruit juice". Do not crush heparin 2018-10 No 10,000 Memoria 1-10 unit/mL, l 15:29: Route: [place] 00 DIALYSIS, Drug form: INJ, ONCALL, Dosing Weight 96.364, kg, Priority: NOW, Start date: 08/18/19 9:29:00 VALANCE CUTTER, Duration: 1 doses or times, 0 heparin 2018-10 No 10,000 Memoria 1-09 unit, 10 l 19:00: mL, Route: DIALYSIS, Drug form: INJ, ONCALL, Dosing Weight 96.364, kg, Start date: 08/17/19 13:00:00 VALANCE CUTTER, Duration: 1 doses or times, 0 Sodium 2018-10 No 1,000 mL, Memori a Chloride 1-09 1,000 l 0.9% 18:06: ml/hr, [place] (Bolus) IV 00 Infuse Over: 1 hr, Route: IV, 1,000, Drug form: INJ, PRN, Priority: STAT, Dosing Weight 96.364 kg, Start date: 08/17/19 12:06:00 VALANCE CUTTER, Duration: 30 day, Stop date: 09/16/19 12:05:00 VALANCE CUTTER, PRN Dialysis, 0 Potassium 2018-10 No Notes: Memori a Chloride 1-08 (Same as: l 15:18: K-Dur 20) "Do Not Crush" Give with food and full glass of water For patients unable to swallow tablet, dissolve in one half glass of water. Allow about 2 minutes for the tablets to disintegra te. Stir before giving to prepare slurry and administer . Please exclude Patient s with feeding tube less than 14 Brazilian (Dobhoff, J-tube etc) and pediatric and patients. Seroquel 2018-10 No Notes: Memoria -08 (Same as: l 02:36: SEROquel) Ativan 2018-10 No Notes: Memoria 10-15 (Same as: l 21:45: Ativan) [place] 00 Ativan 2018-10 No Notes: Memoria 10-15 (Same as: l 19:03: Ativan) amLODIPine 2018-10 No Notes: Memor ia 10-15 (Same as: l 15:00: Norvasc) lisinopril 2018-10 No Notes: Memor ia 10-15 (Same as: l 15:00: Prinivil, Zestril) multivitami 2018-10 No Notes: Kojo lynn n 10-15 (Same l 15:00: as:One Tab [place] 00 [...] not crush Haldol 2018-10 No Notes: Memoria 10-15 (Same as: l 10:28: Haldol) Haldol 2018-10 No Notes: Memoria - (Same as: l 10:25: Haldol) heparin 2018-10 No Notes: Memoria 10-15 porcine l 06:00: heparin [place] 00 tamsulosin 2018-10 No Notes: Memor ia 10-15 (Same As: l 03:00: Flomax) "Do Not Crush" Amlodipine 2018-10 No 1 cap, Memor ia 10 MG / 10-14 Route: PO, l Benazepril 23:00: Drug Form: H ermann hydrochlori 00 CAP, de 20 MG Dosing Oral Weight Capsule 100.17, kg, TID, Start date: 08/14/19 17:00:00 VALANCE CUTTER, Duration: 30 day, Stop date: 09/13/19 13:00:00 VALANCE CUTTER carvedilol 2018-10 No Notes: Memor ia 1-06 Give with l 23:00: food. [place] 00 (Same As: Coreg) Furosemide 2018-10 No [...] crush Hydralazine 2018-10 No Notes: Kojo lynn -06 (Same as: l 21:58: Apresoline ) Push [...] Blood Glucose Results, Start date: 08/14/19 15:47:00 VALANCE CUTTER, Duration: 30 day, Stop date: 09/13/19 15:46:00 VALANCE CUTTER, 0 Glucagon 2018-10 No 1 mg, Memoria 10-14 Route: IM, l 21:47: Drug form: PDR/INJ, PRN, Dosing Weight 100.17, kg, PRN Blood Glucose Results, Start date: 08/14/19 15:47:00 VALANCE CUTTER, Duration: 30 day, Stop date: 09/13/19 15:46:00 VALANCE CUTTER, 0 Ondansetron 2018-10 No Notes: Kojo lynn 10-14 (Same as: l 21:47: Zofran) [place] MEDICATION WASTE Product Size: 4 mg Product Wasted: ___ mg Acetaminoph 2018-10 No Notes: Do M emoria en 10-14 not exceed l 21:47: 4 gm/day. [place] (Same as: Tylenol) acetaminoph 2018-10 Yes 1 tab, PO, Memoria en-codeine 10-14 Q6H, PRN l #3 20:48: Pain Score [place] 00 4-6, 0 Refill(s) Amlodipine 2018-10 No 1 cap, PO, M emoria 10 MG / 10-14 TID, 0 l Benazepril 20:48: Refill(s) He rmann hydrochlori 00 de 20 MG Oral Capsule carvedilol 2018-10 No 6.25 mg = Me moria 6.25 mg 10-14 1 tab, PO, l oral tablet 20:48: BID, # 180 [place] 00 tab, 0 Refill(s) Hydroxyzine 2018-10 Yes 25 mg = 1 M emoria Hydrochlori 10-14 tab, PO, l de 25 MG 20:48: TID, 0 [place] Oral Tablet 00 Refill(s) furosemide 2018-10 No 80 mg = 1 Me moria 80 mg oral 10-14 tab, PO, l tablet 20:48: TID, 0 [place] 00 Refill(s) doxycycline Yes 100 mg = 1 Memoria hyclate 100 04-08 cap, PO, l MG Oral 20:19: Q12H, X 5 [place] nn Capsule 00 day, # 10 cap, 0 Refill(s), Pharmacy: [facility][id number] lisinopril Yes 20 mg = 1 Me moria 20 mg oral 04-08 tab, PO, l tablet 20:19: Daily, # [place] 00 30 tab, 0 Refill(s), Pharmacy: [facility] #[id number] Miralax No Notes: Memoria 04-08 Dissolve l 14:36: in 8 oz of [place] 00 water or juice. (Same as: Miralax) tamsulosin 2019-0 No Notes: Memor ia 6-30 (Same As: l 02:00: Flomax) [place] 00 "Do Not Crush" atorvastati No Notes: Kojo lynn n 6-30 (Same as: l 02:00: Lipitor) [place] 00 Zithromax + No 500 mg, Mem oria Sodium 04-06 Route: l Chloride 22:00: IVPB, [place] 0.9% IV 250 00 [id number], mL Dosing Weight 102.273, kg, Start date: 04/06/19 17:00:00 CDT, Duration: 7 day, Stop date: 04/12/19 17:00:00 CDT, ABX Indication : Pneumonia, 0 Hydralazine No Notes: Kojo lynn 6-29 (Same as: l 22:00: Apresoline [place] 00 ) May interfere w/enteral feedings Take With Food Lasix No Notes: Memoria 6-29 (Same as: l 22:00: Lasix) [place] 00 May cause GI upset. Give with food or milk. cefTRIAXone No Notes: Kojo lynn + sterile 04-06 Give IV l water 10 mL 21:00: push Rafael n 00 slowly over 5 minutes Give within one hour of reconstitu tion Reconstitu te Ceftriaxon e 1 g vial: 10 mL of SWFI Shake immediatel y & vigorously Procardia No Notes: Memori a XL 30 mg 6-29 (Same as: l oral 19:00: Adalat CC, [place] tablet, 00 Procardia extended XL) Give release on empty stomach. Take 1 hour before or 2 hours after meal; "Avoid grapefruit and grapefruit juice". Do not crush Alprazolam No Notes: Memor ia 2 MG Oral 6-29 With food l Tablet 18:22: or milk [place] [Xanax] 00 (Same as: Xanax) Hydralazine No Notes: Kojo lynn 6-29 (Same as: l 18:21: Apresoline [place] 00 ) Push over 5 minutes benazepril No 20 mg, Memor ia 6-29 Route: PO, l 14:00: Drug form: [place] 00 TAB, Daily, Dosing Weight 100.17, kg, Start date: 04/06/19 9:00:00 CDT, Duration: 30 day, Stop date: 05/05/19 9:00:00 CDT Saline No Notes: Memoria Flush 0.9% - preservati l 14:00: ve free. 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 Zithromax No 500 mg, Memor ia 04-06 Route: l 03:00: IVPB, [place] [id number], Dosing Weight 102.273, kg, Start date: 04/05/19 22:00:00 CDT, Duration: 7 day, Stop date: 04/11/19 22:00:00 CDT, ABX Indication : Pneumonia Ceftriaxone No 1 gm, Memor ia 04-06 Route: l 03:00: IVPB, [place] 00 [id number], Dosing Weight 102.273, kg, Start date: 04/05/19 22:00:00 CDT, Duration: 7 day, Stop date: 04/11/19 22:00:00 CDT, ABX Indication : Pneumonia Glucagon No 1 mg, Memoria 04-06 Route: IM, l 02:03: Drug form: [place] 00 PDR/INJ, PRN, Dosing Weight 102.273, kg, [...] 04-06 not exceed l 02:03: 4 gm/day. [place] 00 (Same as: Tylenol) Dextrose No 25 gm, 50 Kojo lynn 50% Syringe 6-29 mL, Route: l 02:03: IVP, Drug Form: INJ, Dosing Weight 102.273, kg, PRN, PRN Blood Glucose Results, Start date: 04/05/19 21:03:00 CDT, Duration: 30 day, Stop date: 05/05/19 21:02:00 CDT, 0 Saline No Notes: [facility] Flush 0.9% - preservati l 02:02: ve free. Acetaminoph No Notes: Do M emoria en - not exceed l 02:02: 4 gm/day. [place] 00 (Same as: Tylenol) Hydromorpho No Notes: Kojo lynn ne 04-06 Same as: l 01:54: Dilaudid Tramadol No Notes: Not Mem oria -29 to exceed l 01:54: 400mg/day. [place] 00 (Same As: Ultram) NIFEdipine 2017-10 Yes 60 mg = 1 Me moria 60 mg oral 0-16 tab, PO, l tablet, 17:27: Daily, # Rafael n extended 00 30 tab, 0 release Refill(s), Pharmacy: [facility] #[id number] heparin 2017-10 No 10,000 Memoria 0-16 unit, 10 l 15:21: mL, Route: [place] 00 DIALYSIS, Drug form: INJ, ONCALL, Dosing Weight 102.273, kg, PRN Dialysis, Start date: 07/24/18 10:21:00 CDT, Duration: 1 doses or times, Stop date: Limited # of times Dilaudid 2017-10 No Notes: Memoria 0-15 (Same as: l 19:17: Dilaudid) heparin 2017-10 No 10,000 Memoria 0-15 unit, 10 l 13:00: mL, Route: [place] 00 DIALYSIS, Drug form: INJ, ONCALL, Dosing [...] Duration: 30 day, Stop date: 08/20/18 21:00:00 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 [place] 00 (Same As: Coreg) calcium 2017-10 No Notes: Memoria acetate 667 0-14 Same as l MG Oral 14:00: Phoslo Gel Herm hannah Capsule 00 Cap Amlodipine 2017-10 No Notes: Memor ia 0-14 (Same as: l 14:00: Norvasc) [place] 00 Docusate 2017-10 No Notes: Memoria 0-14 (Same as: l 14:00: Colace) [place] 00 (Do Not Crush) carvedilol 2017-10 Yes 37.5 mg = Me moria 12.5 mg 0-14 3 tab, PO, l oral tablet 11:45: BID, 0 Herm hannah 00 Refill(s) calcium 2017-10 Yes See Memoria acetate 667 0-14 Instructio l MG Oral 11:45: ns, 0 [place] Capsule 00 Refill(s) Hydralazine 2017-10 Yes 50 mg, PO, Memoria 0-14 TID, 0 l 11:45: Refill(s) [place] 00 Amlodipine 2017-10 Yes 1 cap, PO, [...] l Tablet 11:31: or milk [place] [Xanax] (Same as: Xanax) Dilaudid 2017-10 No Notes: Memoria 0-14 Same as: l 11:27: Dilaudid [place] 00 Dilaudid 2017-10 No 1 mg, Memoria [...] Duration: 30 day, Stop date: 08/21/18 0:42:00 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 [place] 00 (Same as: Tylenol) Morphine 2017-10 No Notes: Memoria 0-14 Preservati l 05:22: ve free. [place] 00 (Same as: Morphine Sulfate-PF ) Ondansetron [...] Memor ia 0-12 (sodium l 23:39: polystyren [place] 00 e sulfonate 15 gm/60 ml CANDACE) [...] tab, PO, l Tablet 16:49: PRN, 0 [place] 00 Refill(s) amLODIPine Yes 10 mg = 1 Me moria 10 mg oral 8-14 tab, PO, l tablet 16:49: Daily, 0 [place] 00 Refill(s) tamsulosin No Notes: Memor ia 04-16 (Same As: l 02:00: Flomax) [place] 00 "Do Not Crush" Hydralazine Yes 50 [...] s with feeding tube less than 14 Brazilian (Dobhoff, J-tube etc) and pediatric and patients. With food and full glass of water Hydralazine No Notes: Kojo lynn Hydrochlori 04-15 (Same as: l de 25 MG 14:00: Apresoline Her meeks Oral Tablet 00 ) May interfere w/enteral feedings Take With Food. Lasix No Notes: Memoria 7-08 (Same as: l 14:00: Lasix) [place] 00 May cause GI upset. Give with [...] ia 7-08 Give with l 14:00: food. [place] (Same As: Coreg) calcium No Notes: Memoria [...] (Same As: l 08:47: Ambien) [place] 00 Hydroxyzine Yes 25 mg = 1 M emoria Hydrochlori 7-08 tab, PO, l de 25 MG 08:12: TID, PRN [place] nn Oral Tablet 00 Anxiety, # 40 tab, 0 Refill(s) Insulin No Notes: Memoria Lispro -08 (Same as: l 07:15: Humalog ) [place] 00 Roll in palms of hands gently; [...] 04-15 Route: IM, l 07:15: Drug form: [place] 00 PDR/INJ, PRN, Dosing Weight 74.091, kg, PRN Blood Glucose Results, Start date: 04/15/18 2:15:00 CDT, Duration: 30 day, Stop date: 05/15/18 2:14:00 CDT Ergocalcife 2017-0 No 50,000 Kojo lynn rol [id number] IntlUnit, l UNT Oral 07:00: 1 cap, [place] Capsule 00 Route: PO, Drug form: CAP, qWeek, Dosing Weight 74.091, kg, Start date: 04/15/18 2:00:00 CDT, Duration: 30 day, Stop date: 05/13/18 9:00:00 CDT Alprazolam 2017-0 No Notes: Memor ia 2 MG Oral 04-15 With food l Tablet 06:56: or milk [place] [Xanax] 00 (Same as: Xanax) NS (Bolus) 2017-0 No 250 mL, Kojo lynn IV 08 500 ml/hr, l 06:34: Infuse [place] Over: 0.5 hr, Route: IV, 250, Drug form: INJ, ONCE, Priority: STAT, Dosing Weight 74.091 kg, Start date: 04/15/18 1:34:00 CDT, Stop date: 04/15/18 1:34:00 CDT Hydralazine 2017-0 No 10 mg, Kojo lynn 04-15 Route: l 06:27: IVP, ONCE, [place] 00 Dosing Weight 74.091, kg, Priority: STAT, Start date: 04/15/18 1:27:00 CDT, Stop date: 04/15/18 1:27:00 CDT Amlodipine 2018-0 No Notes: Memor ia 04-15 (Same as: l 03:50: Norvasc) Hydralazine No Notes: Kojo lynn 04-15 (Same as: l 03:50: Apresoline ) Push [...] 0.9% 04-14 (Same as: l 23:55: BD Posiflush) vancomycin No Notes: Memor ia + [...] cap, 0 Refill(s), Pharmacy: [facility] #[id number] heparin No 10,000 Memoria 6-11 unit, 10 l 15:00: mL, Route: [place] 00 DIALYSIS, Drug form: INJ, ONCALL, Dosing [...] 6-10 not exceed l 23:00: 4 gm/day. [place] 00 (Same as: Tylenol) Roxicodone No Notes: [...] Vancomycin No 2000 mg: Me moria Pharmacy 6-10 infuse l Dosing + 03:00: [...] Memoria 6-09 (Same as: l 22:00: Lasix) [place] May cause GI upset. Give with food or milk. Hydralazine No Notes: Kojo lynn 6-09 (Same as: l 20:10: Apresoline [place] 00 ) Push over 5 minutes Acetaminoph No Notes: Kojo lynn en 325 MG / 03-17 (Same as: l Hydrocodone 20:10: Belle Mercedez nn Bitartrate 00 325/5) Do 5 MG Oral not exceed Tablet 4gm/day of [Belle acetaminop 5/325] hen. phenol No Notes: Memoria 03-17 Chlorasept l 20:08: ic [place] 00 (Same as: Chlorasept ic, Sore Throat [place]) WASTE: F/P - Black; E - Municipal Trash Bin Furosemide Yes 80 mg = 1 Me moria 80 MG Oral 03-17 tab, PO, l Tablet 15:44: BID, 0 [place] [Lasix] 00 Refill(s) amLODIPine Yes 10 mg = 1 Me moria 10 mg oral 03-17 tab, PO, l tablet 15:44: Daily, # [place] 00 30 tab, 0 Refill(s) carvedilol Yes 3.125 mg = M emoria 3.125 mg 03-17 1 tab, PO, l oral tablet 15:44: Q12H, # 60 [place] 00 tab, 0 Refill(s) calcium Yes 2,001 [...] 03-17 unit, 10 l 13:00: mL, Route: [place] 00 DIALYSIS, Drug form: INJ, ONCALL, Dosing Weight 100.455, kg, Start date: 03/17/18 8:00:00 CDT, Duration: 1 doses or times Mannitol Yes Notes: Memoria 03-17 (Same as: l 12:41: Osmitrol) Infuse through 5 micron or smaller filter WASTE: F/P - Sink; E - Municipal Trash Bin Vancomycin No 2001 mg: Me moria 03-17 infuse l 12:00: over 2.5 [place] 00 hours For adult patients only: Round to nearest 250 mg per Medical Staff approval MEDICATION WASTE Product Size: 1000 mg Product Wasted: ___ mg Sodium No 2,000 mL, Memori a Chloride 03-17 2000 l 0.9% 12:00: ml/hr, [place] (Bolus) IV 00 Infuse Over: 1 hr, [...] 03-17 not exceed l 11:53: 4 gm/day. [place] (Same as: Tylenol) Insulin No Notes: Memoria [...] 03-17 Route: IM, l 11:49: Drug form: [place] 00 PDR/INJ, PRN, Dosing Weight 98.182, kg, PRN Blood Glucose Results, Start date: 03/17/18 6:49:00 CDT, Duration: 30 day, Stop date: 04/16/18 6:48:00 CDT Dextrose No 25 gm, 50 Kojo lynn 50% Syringe 6-09 mL, Route: l 11:49: IVP, Drug 00 Form: INJ, Dosing Weight 98.182, kg, PRN, PRN Blood Glucose Results, Start date: 03/17/18 6:49:00 CDT, Duration: 30 day, Stop date: 04/16/18 6:48:00 CDT Zosyn No Notes: Memoria 6- (Same as: l 10:49: Zosyn) Dosing based on Piperacill in component MEDICATION WASTE Product Size: 4500 mg Product Wasted: ___ mg Vancomycin No 2001 mg: Me moria 6 infuse l 10:49: over 2.5 [place] 00 hours For adult patients only: Round to nearest 250 mg per Medical Staff approval MEDICATION WASTE Product Size: 1000 mg Product Wasted: ___ mg Saline No Notes: Memoria Flush 0.9% 6-09 (Same as: l 07:36: BD [place] 00 Posiflush) Saline No Notes: Memoria Flush 0.9% 4-17 (Same as: l 00:31: BD [place] 00 Posiflush) Lasix No Notes: Memoria 3-15 (Same as: l 14:00: Lasix) [place] 00 May cause GI upset. Give with food or milk. calcitriol No 0.5 Memoria 0.5 mcg 3-14 microgram l oral 14:51: = 1 cap, [place] capsule 00 PO, Daily, # 30 cap, 0 Refill(s), Pharmacy: [facility] [id number] Ergocalcife Yes 50,000 Kojo lynn rol [id number] 3-14 IntlUnit = l UNT Oral 14:47: 1 cap, PO, Her meeks Capsule 00 qWeek, # 5 cap, 0 Refill(s), Pharmacy: [facility] Calcium No 2,000 mg = Kojo lynn Carbonate 3-14 4 tab, PO, l 500 MG 14:47: TID, # 168 Mercedez nn Chewable 00 tab, 0 Tablet Refill(s), Pharmacy: [facility] sevelamer No 2,400 mg = Me moria carbonate 3-14 3 tab, PO, l 800 mg oral 14:47: TID-Meals, [place] tablet 00 # 270 tab, 0 Refill(s), Pharmacy: [facility] Furosemide No 80 mg, PO, M emoria 80 MG Oral 3-14 Daily, # l Tablet 14:47: 30 ea, 0 [place] [Lasix] 00 Refill(s), Pharmacy: [facility] carvedilol No 3.125 mg = M emoria 3.125 mg 3-14 1 tab, PO, l oral tablet 14:47: Q12H, # 60 [place] 00 tab, 0 Refill(s), Pharmacy: [facility] amLODIPine No 10 mg = 2 Me moria 5 mg oral 3-14 tab, PO, l tablet 14:47: Daily, # [place] 00 60 tab, 0 Refill(s), Pharmacy: [facility] Calcium No Notes: Memoria Gluconate 3-14 WASTE: F/P l 11:50: - Sink; E - Municipal Trash Bin Coreg No Notes: Memoria 3-14 Give with l 02:00: food. [place] (Same As: Coreg) Lasix No Notes: Memoria 3-13 (Same as: l 14:00: Lasix) MEDICATION WASTE Product Size: 40 mg Product Wasted: ___ mg Vitamin D2 No Notes: Memor ia 3-13 (Same as: l 14:00: Vitamin D) "Do Not Crush" Calcium No Notes: Memoria Gluconate 3-13 WASTE: F/P l 11:39: - Sink; E [place] 00 - Municipal Trash Bin Calcium No [...] F/P l 10:53: - Sink; E [place] 00 - Municipal Trash Bin Calcium No Notes: Memoria Gluconate 3-12 WASTE: F/P l 04:35: - Sink; E - Municipal Trash Bin RenaGel No Notes: Memoria 3-11 Same as: l 17:00: Renvela [place] 00 Lasix No Notes: Memoria 3-11 (Same [...] bicarbonate 3-11 (sodium l 8.4% 01:11: bicarb [place] 00 8.4% (1 mEq/ml) 50 ml syringe) [...] Notes: Memoria 12-15 (Same l 19:02: as:MORPhin [place] 00 e Sulfate) Acetaminoph No 2 tabs, Mem oria en 300 MG / 12-15 PO, BID, 0 l Codeine 18:35: Refill(s) [place] nn Phosphate 00 60 MG Oral Tablet [Tylenol with Codeine #4] Alprazolam Yes 2 mg = 1 Mem oria 2 MG Oral 12-15 tab, PO, l Tablet 18:19: BID, PRN [place] [Xanax] 00 as needed for anxiety, 0 [...] Notes: Kojo lynn en 325 MG / 3- (Same as: l Hydrocodone 14:31: Belle Mercedez nn Bitartrate 00 325/5) Do 5 MG Oral not exceed Tablet 4gm/day of acetaminop hen. Saline No Notes: Memoria Flush 0.9% 12-15 (Same as: l 12:30: BD [place] 00 Posiflush) Lasix No Notes: Memoria - (Same as: l 10:45: Lasix) [place] 00 MEDICATION WASTE Product Size: 40 mg Product Wasted: ___ mg Immunizations Ordered Filled Immunization Date Status Comments [facility] e Immunization Name Name influenza virus 2020-07-15 [facility] inactivated Hep B, Adol or Pedi 2018-08-16 Completed [facility] of Dosage 00:00:00 [facility] Influenza Virus 2018-06-28 Completed [facility] y of Vaccine 00:00:00 [facility] Hep B, Adol or Pedi 2018-05-08 Completed Unive rsity of Dosage 00:00:00 [facility] Hep B, Adol or Pedi 2018-04-05 Completed Unive rsity of Dosage 00:00:00 [facility] pneumococcal 2018-03-20 Completed [facility] 13-valent vaccine 21:53:00 Hep B, Adol or Pedi 2018-03-03 Completed Unive rsity of Dosage 00:00:00 [facility] Pneumococcal 2018-03-01 Completed [place] [facility] f Polysaccharide, 00:00:00 [facility] PPSV23 (PNEUMOVAX) Branch PPD (TB) 2018-02-27 Completed [facility] 00:00:00 [facility] Vital Signs Vital Name Observation Time Observation Value Comments Source Heart Rate 2020-08-12 23:15:00 [facility] [place] Respitory Rate 2020-08-12 23:15:00 Memori al [place] Systolic (mm Hg) 2020-08-12 23:15:00 Kojo rial [place] Diastolic (mm Hg) 2020-08-12 23:15:00 Mem orial [place] Temperature Oral (F) 2020-08-12 23:15:00 98.1 F [facility] [place] Temperature Oral (F) 2020-08-12 19:20:00 98.0 F [facility] [place] Heart Rate 2020-08-12 19:20:00 [facility] [place] Respitory Rate 2020-08-12 19:20:00 [facility] al [place] Systolic (mm Hg) 2020-08-12 19:20:00 Kojo rial [place] Diastolic (mm Hg) 2020-08-12 19:20:00 Mem orial [place] Respitory Rate 2020-08-12 19:00:00 [facility] al [place] Systolic (mm Hg) 2020-08-12 19:00:00 Kojo rial [place] Diastolic (mm Hg) 2020-08-12 19:00:00 Mem orial [place] Temperature Oral (F) 2020-08-12 14:00:00 97.7 F [facility] [place] Heart Rate 2020-08-12 14:00:00 [facility] [place] Temperature Oral (F) 2020-08-10 06:00:00 98.3 F [facility] [place] Heart Rate 2020-08-10 06:00:00 [facility] [place] Respitory Rate 2020-08-10 06:00:00 [facility] al [place] Systolic (mm Hg) 2020-08-10 06:00:00 Kojo rial [place] Diastolic (mm Hg) 2020-08-10 06:00:00 [facility] o[facility] [place] Temperature Oral (F) 2020-08-10 02:00:00 98.4 F [facility] [place] Heart Rate 2020-08-10 02:00:00 [facility] [place] Respitory Rate 2020-08-10 02:00:00 [facility] al [place] Systolic (mm Hg) 2020-08-10 02:00:00 Kojo rial [place] Diastolic (mm Hg) 2020-08-10 02:00:00 Mem orial [place] Temperature Oral (F) 2020-08-09 22:00:00 98.3 F [facility] [place] Heart Rate 2020-08-09 22:00:00 [facility] [place] Respitory Rate 2020-08-09 22:00:00 [facility] al [place] Systolic (mm Hg) 2020-08-09 22:00:00 Kojo rial [place] Diastolic (mm Hg) 2020-08-09 22:00:00 Mem orial [place] Height 2020-08-07 03:47:00 170.18 cm [facility] [place] Weight 2020-08-07 03:47:00 [facility] [place] BMI Calculated 2020-08-07 03:47:00 [facility] al [place] Height 2020-08-06 18:59:00 152.4 cm [facility] [place] BMI Calculated 2020-08-06 18:59:00 [facility] al [place] Weight 2020-08-06 18:59:00 [facility] [place] Respitory Rate 2020-07-24 16:17:00 [facility] [place] Systolic (mm Hg) 2020-07-24 16:17:00 Kojo rial [place] Diastolic (mm Hg) 2020-07-24 16:17:00 Mem orial [place] Temperature Oral (F) 2020-07-24 16:17:00 98.0 F [facility] [place] Respitory Rate 2020-07-24 15:04:00 [facility] al [place] Systolic (mm Hg) 2020-07-24 15:04:00 Kojo rial [place] Diastolic (mm Hg) 2020-07-24 15:04:00 Mem orial [place] Heart Rate 2020-07-24 15:04:00 [facility] [place] Temperature Oral (F) 2020-07-24 15:04:00 97.9 F [facility] [place] Height 2020-07-24 14:45:00 170.18 cm [facility] [place] BMI Calculated 2020-07-24 14:45:00 [facility] [place] Weight 2020-07-24 14:45:00 [facility] [place] Heart Rate 2020-07-24 13:10:00 [facility] [place] Respitory Rate 2020-07-24 13:10:00 [facility] [place] Systolic (mm Hg) 2020-07-24 13:10:00 Kojo rial [place] Diastolic (mm Hg) 2020-07-24 13:10:00 Mem orial [place] Height 2020-07-24 12:55:00 170.18 cm [facility] [place] BMI Calculated 2020-07-24 12:55:00 Mem[facility] al [place] Weight 2020-07-24 12:55:00 [facility] [place] Heart Rate 2020-07-24 12:55:00 [facility] [place] Temperature Oral (F) 2020-07-24 12:55:00 98.2 F [facility] [place] Heart Rate 2020-07-15 19:07:00 [facility] [place] Respitory Rate 2020-07-15 19:07:00 Memori al [place] Systolic (mm Hg) 2020-07-15 19:07:00 Kojo rial [place] Diastolic (mm Hg) 2020-07-15 19:07:00 Mem orial [place] Temperature Oral (F) 2020-07-15 17:00:00 98.1 F [facility] [place] Heart Rate 2020-07-15 17:00:00 [facility] [place] Systolic (mm Hg) 2020-07-15 17:00:00 Kojo rial [place] Diastolic (mm Hg) 2020-07-15 17:00:00 Mem orial [place] Respitory Rate 2020-07-15 17:00:00 [facility] al [place] Temperature Oral (F) 2020-07-15 13:00:00 98.3 F [facility] [place] Heart Rate 2020-07-15 13:00:00 [facility] [place] Systolic (mm Hg) 2020-07-15 13:00:00 Kojo rial [place] Diastolic (mm Hg) 2020-07-15 13:00:00 Mem orial [place] Temperature Oral (F) 2020-07-15 09:00:00 98.1 F [facility] [place] Respitory Rate 2020-07-15 09:00:00 [facility] al [place] Height 2020-07-06 10:14:00 170.18 cm [facility] [place] BMI Calculated 2020-07-06 10:14:00 [facility] [place] Weight 2020-07-06 10:14:00 [facility] [place] Systolic (mm Hg) 2020-05-21 15:01:00 Kojo rial [place] Diastolic (mm Hg) 2020-05-21 15:01:00 Mem orial [place] Heart Rate 2020-05-21 15:01:00 [facility] [place] Respitory Rate 2020-05-21 15:01:00 [facility] al [place] Height 2020-05-21 13:15:00 170.18 cm [facility] [place] BMI Calculated 2020-05-21 13:15:00 [facility] [place] Weight 2020-05-21 13:15:00 [facility] [place] Systolic (mm Hg) 2020-05-21 13:15:00 Kojo rial [place] Diastolic (mm Hg) 2020-05-21 13:15:00 Mem orial [place] Heart Rate 2020-05-21 13:15:00 [facility] [place] Respitory Rate 2020-05-21 13:15:00 [facility] [place] Temperature Oral (F) 2020-05-21 13:15:00 98.5 F [facility] [place] Systolic (mm Hg) 2020-03-23 14:05:00 Kojo rial [place] Diastolic (mm Hg) 2020-03-23 14:05:00 Mem orial [place] Systolic (mm Hg) 2020-03-23 13:00:00 Kojo rial [place] Diastolic (mm Hg) 2020-03-23 13:00:00 Mem o[facility] [place] Temperature Oral (F) 2020-03-23 13:00:00 98.5 F [facility] [place] Heart Rate 2020-03-23 13:00:00 [facility] [place] Respitory Rate 2020-03-23 13:00:00 [facility] [place] Systolic (mm Hg) 2020-03-23 11:10:00 Kojo rial [place] Diastolic (mm Hg) 2020-03-23 11:10:00 Mem orial [place] Respitory Rate 2020-03-23 11:10:00 [facility] al [place] Heart Rate 2020-03-23 11:10:00 [facility] [place] Temperature Oral (F) 2020-03-23 11:10:00 98.4 F [facility] [place] Respitory Rate 2020-03-23 09:42:00 [facility] [place] Heart Rate 2020-03-23 09:42:00 [facility] [place] Temperature Oral (F) 2020-03-23 08:46:00 98.3 F [facility] [place] Height 2020-03-23 05:39:00 170.18 cm [facility] [place] BMI Calculated 2020-03-23 05:39:00 [facility] [place] Weight 2020-03-23 05:39:00 [facility] [place] Systolic (mm Hg) 2020-02-03 23:19:00 Kojo rial [place] Diastolic (mm Hg) 2020-02-03 23:19:00 Mem orial [place] Respitory Rate 2020-02-03 23:19:00 Memori al [place] Heart Rate 2020-02-03 23:19:00 [facility] [place] Temperature Oral (F) 2020-02-03 23:19:00 98.6 F [facility] [place] Systolic (mm Hg) 2020-02-03 22:04:00 Kojo rial [place] Diastolic (mm Hg) 2020-02-03 22:04:00 Mem o[facility] [place] Respitory Rate 2020-02-03 22:04:00 [facility] [place] Heart Rate 2020-02-03 22:04:00 [facility] [place] Systolic (mm Hg) 2020-02-03 20:14:00 Kojo rial [place] Diastolic (mm Hg) 2020-02-03 20:14:00 Mem o[facility] [place] Respitory Rate 2020-02-03 20:14:00 [facility] al [place] Heart Rate 2020-02-03 20:14:00 [facility] [place] Temperature Oral (F) 2020-02-03 20:14:00 98.5 F [facility] [place] Height 2020-02-03 19:22:00 170.18 cm [facility] [place] BMI Calculated 2020-02-03 19:22:00 [facility] [place] Weight 2020-02-03 19:22:00 [facility] [place] Temperature Oral (F) 2020-02-03 19:22:00 99.0 F [facility] [place] Temperature Oral (F) 2019-11-05 18:00:00 98.3 F [facility] [place] Heart Rate 2019-11-05 18:00:00 [facility] [place] Respitory Rate 2019-11-05 18:00:00 [facility] al [place] Systolic (mm Hg) 2019-11-05 18:00:00 Kojo rial [place] Diastolic (mm Hg) 2019-11-05 18:00:00 [facility] [place] Temperature Oral (F) 2019-11-05 14:00:00 98.1 F [facility] [place] Heart Rate 2019-11-05 14:00:00 [facility] [place] Respitory Rate 2019-11-05 14:00:00 [facility] [place] Systolic (mm Hg) 2019-11-05 14:00:00 Kojo rial [place] Diastolic (mm Hg) 2019-11-05 14:00:00 Mem o[facility] [place] Respitory Rate 2019-11-05 12:36:00 [facility] [place] Temperature Oral (F) 2019-11-05 10:00:00 98.0 F [facility] [place] Heart Rate 2019-11-05 10:00:00 [facility] [place] Systolic (mm Hg) 2019-11-05 10:00:00 Kojo rial [place] Diastolic (mm Hg) 2019-11-05 10:00:00 [facility] [place] Height 2019-10-29 07:23:00 170.18 cm [facility] [place] Weight 2019-10-29 07:23:00 [facility] [place] BMI Calculated 2019-10-29 07:23:00 [facility] [place] Height 2019-10-29 01:03:00 170.18 cm [facility] [place] BMI Calculated 2019-10-29 01:03:00 [facility] [place] Weight 2019-10-29 01:03:00 [facility] [place] Temperature Oral (F) 2019-08-20 14:07:00 98.8 F [facility] [place] Heart Rate 2019-08-20 14:07:00 [facility] [place] Respitory Rate 2019-08-20 14:07:00 [facility] [place] Systolic (mm Hg) 2019-08-20 14:07:00 Kojo rial [place] Diastolic (mm Hg) 2019-08-20 14:07:00 [facility] o[facility] [place] Systolic (mm Hg) 2019-08-20 12:15:00 Kojo rial [place] Diastolic (mm Hg) 2019-08-20 12:15:00 [facility] [place] Heart Rate 2019-08-20 12:15:00 [facility] [place] Temperature Oral (F) 2019-08-20 09:46:00 98.3 F [facility] [place] Heart Rate 2019-08-20 09:46:00 [facility] [place] Respitory Rate 2019-08-20 09:46:00 [facility] [place] Systolic (mm Hg) 2019-08-20 09:46:00 Kojo rial [place] Diastolic (mm Hg) 2019-08-20 09:46:00 [facility] Temperature Oral (F) 2019-08-20 06:02:00 98.5 F [facility] Respitory Rate 2019-08-20 06:02:00 [facility] Height 2019-08-14 22:12:00 175.26 cm [facility] Weight 2019-08-14 22:12:00 [facility] BMI Calculated 2019-08-14 22:12:00 [facility] Respitory Rate 2019-04-08 17:36:00 [facility] Systolic (mm Hg) 2019-04-08 17:36:00 [facility] Diastolic (mm Hg) 2019-04-08 17:36:00 [facility] Temperature Oral (F) 2019-04-08 17:36:00 98.0 F [facility] Heart Rate 2019-04-08 17:36:00 [facility] Respitory Rate 2019-04-08 13:23:00 [facility] Heart Rate 2019-04-08 13:23:00 [facility] Temperature Oral (F) 2019-04-08 13:23:00 98.1 F [facility] Systolic (mm Hg) 2019-04-08 13:23:00 [facility] Diastolic (mm Hg) 2019-04-08 13:23:00 [facility] Systolic (mm Hg) 2019-04-08 08:40:00 [facility] Diastolic (mm Hg) 2019-04-08 08:40:00 [facility] Respitory Rate 2019-04-08 08:40:00 [facility] Heart Rate 2019-04-08 08:40:00 [facility] Temperature Oral (F) 2019-04-08 08:40:00 98.0 F [facility] Weight 2019-04-06 04:23:00 [facility] BMI Calculated 2019-04-06 04:17:00 [facility] Height 2019-04-06 04:17:00 167.64 cm [facility] Weight 2019-04-06 04:17:00 [facility] Respitory Rate 2018-07-24 20:59:00 [facility] Systolic (mm Hg) 2018-07-24 20:59:00 [facility] Diastolic (mm Hg) 2018-07-24 20:59:00 [facility] Heart Rate 2018-07-24 20:59:00 [facility] Temperature Oral (F) 2018-07-24 20:59:00 98.2 F [facility] Temperature Oral (F) 2018-07-24 16:59:00 98.3 F [facility] Heart Rate 2018-07-24 16:59:00 [facility] Respitory Rate 2018-07-24 16:59:00 [facility] Systolic (mm Hg) 2018-07-24 16:59:00 [facility] [place] Diastolic (mm Hg) 2018-07-24 16:59:00 [facility] Systolic (mm Hg) 2018-07-24 16:33:00 [facility] [place] Diastolic (mm Hg) 2018-07-24 16:33:00 [facility] Temperature Oral (F) 2018-07-24 16:33:00 98.2 F [facility] Respitory Rate 2018-07-24 16:33:00 [facility] Heart Rate 2018-07-24 16:33:00 [facility] Weight 2018-07-22 11:03:00 [facility] BMI Calculated 2018-07-22 11:03:00 [facility] Height 2018-07-22 11:03:00 170.18 cm [facility] BMI Calculated 2018-07-22 01:54:00 [facility] Height 2018-07-22 01:54:00 170.18 cm [facility] Weight 2018-07-22 01:54:00 [facility] Respitory Rate 2018-07-21 02:35:00 [facility] Temperature Oral (F) 2018-07-21 02:35:00 98.6 F [facility] Systolic (mm Hg) 2018-07-21 02:35:00 [facility] [place] Diastolic (mm Hg) 2018-07-21 02:35:00 [facility] [place] Respitory Rate 2018-07-20 23:36:00 [facility] [place] Systolic (mm Hg) 2018-07-20 23:36:00 [facility] [place] Diastolic (mm Hg) 2018-07-20 23:36:00 [facility] Systolic (mm Hg) 2018-07-20 22:37:00 [facility] [place] Diastolic (mm Hg) 2018-07-20 22:37:00 [facility] [place] Respitory Rate 2018-07-20 22:37:00 [facility] Heart Rate 2018-07-20 22:37:00 [facility] [place] Temperature Oral (F) 2018-07-20 22:37:00 97.7 F [facility] Height 2018-07-20 22:37:00 170.18 cm [facility] BMI Calculated 2018-07-20 22:37:00 [facility] [place] Weight 2018-07-20 22:37:00 [facility] BMI Calculated 2018-05-23 15:20:00 [facility] Weight 2018-05-23 15:20:00 [facility] Respitory Rate 2018-05-23 15:20:00 [facility] [place] Heart Rate 2018-05-23 15:20:00 [facility] [place] Height 2018-05-23 15:20:00 170 cm [facility] Systolic (mm Hg) 2018-05-23 15:20:00 [facility] Diastolic (mm Hg) 2018-05-23 15:20:00 [facility] [place] Systolic (mm Hg) 2018-04-15 21:25:00 [facility] Diastolic (mm Hg) 2018-04-15 21:25:00 [facility] Respitory Rate 2018-04-15 16:40:00 [facility] Heart Rate 2018-04-15 16:40:00 [facility] Systolic (mm Hg) 2018-04-15 16:40:00 [facility] Diastolic (mm Hg) 2018-04-15 16:40:00 [facility] Temperature Oral (F) 2018-04-15 16:40:00 98.2 F [facility] Heart Rate 2018-04-15 13:15:00 [facility] [place] Temperature Oral (F) 2018-04-15 13:15:00 98.0 F [facility] Systolic (mm Hg) 2018-04-15 13:15:00 [facility] [place] Diastolic (mm Hg) 2018-04-15 13:15:00 [facility] [place] Respitory Rate 2018-04-15 13:15:00 [facility] [place] Temperature Oral (F) 2018-04-15 09:31:00 98.2 F [facility] Heart Rate 2018-04-15 09:31:00 [facility] Respitory Rate 2018-04-15 09:31:00 [facility] [place] Weight 2018-04-15 07:53:00 [facility] Weight 2018-04-14 23:25:00 [facility] Height 2018-04-14 23:25:00 172.72 cm [facility] BMI Calculated 2018-04-14 23:25:00 [facility] Systolic (mm Hg) 2018-03-20 16:07:00 [facility] Diastolic (mm Hg) 2018-03-20 16:07:00 [facility] Respitory Rate 2018-03-20 16:07:00 [facility] Heart Rate 2018-03-20 16:07:00 [facility] [place] Temperature Oral (F) 2018-03-20 16:07:00 98.4 F [facility] Systolic (mm Hg) 2018-03-20 12:44:00 [facility] [place] Diastolic (mm Hg) 2018-03-20 12:44:00 [facility] Respitory Rate 2018-03-20 12:44:00 [facility] Heart Rate 2018-03-20 12:44:00 [facility] Temperature Oral (F) 2018-03-20 12:44:00 98.3 F [facility] Respitory Rate 2018-03-20 08:46:00 [facility] [place] Temperature Oral (F) 2018-03-20 08:46:00 98.3 F [facility] Heart Rate 2018-03-20 08:46:00 [facility] [place] Systolic (mm Hg) 2018-03-20 08:46:00 [facility] [place] Diastolic (mm Hg) 2018-03-20 08:46:00 [facility] [place] BMI Calculated 2018-03-17 12:01:00 [facility] Weight 2018-03-17 12:01:00 [facility] Height 2018-03-17 12:01:00 167.64 cm [facility] Weight 2018-03-17 07:27:00 [facility] [place] Temperature Oral (F) 2018-01-23 03:30:00 98.2 F [facility] Respitory Rate 2018-01-23 03:30:00 [facility] [place] Systolic (mm Hg) 2018-01-23 03:30:00 [facility] [place] Diastolic (mm Hg) 2018-01-23 03:30:00 [facility] Respitory Rate 2018-01-23 01:48:00 [facility] [place] Heart Rate 2018-01-23 01:48:00 [facility] Systolic (mm Hg) 2018-01-23 01:48:00 [facility] [place] Diastolic (mm Hg) 2018-01-23 01:48:00 [facility] [place] Temperature Oral (F) 2018-01-23 00:14:00 98.2 F [facility] Respitory Rate 2018-01-23 00:14:00 [facility] Systolic (mm Hg) 2018-01-23 00:14:00 [facility] [place] Diastolic (mm Hg) 2018-01-23 00:14:00 [facility] [place] Heart Rate 2018-01-23 00:14:00 [facility] [place] BMI Calculated 2018-01-23 00:14:00 [facility] Height 2018-01-23 00:14:00 165.1 cm [facility] Weight 2018-01-23 00:14:00 [facility] Systolic (mm Hg) 2017-12-20 12:31:00 [facility] [place] Diastolic (mm Hg) 2017-12-20 12:31:00 [facility] Temperature Oral (F) 2017-12-20 12:31:00 98.0 F [facility] Respitory Rate 2017-12-20 12:31:00 [facility] [place] Heart Rate 2017-12-20 12:31:00 [facility] Systolic (mm Hg) 2017-12-20 05:00:00 [facility] [place] Diastolic (mm Hg) 2017-12-20 05:00:00 [facility] [place] Temperature Oral (F) 2017-12-20 05:00:00 98 F [facility] Heart Rate 2017-12-20 05:00:00 [facility] Respitory Rate 2017-12-20 05:00:00 [facility] [place] Temperature Oral (F) 2017-12-20 01:00:00 97.6 F [facility] Heart Rate 2017-12-20 01:00:00 [facility] Systolic (mm Hg) 2017-12-20 01:00:00 [facility] [place] Diastolic (mm Hg) 2017-12-20 01:00:00 [facility] Respitory Rate 2017-12-20 01:00:00 [facility] BMI Calculated 2017-12-15 16:46:00 [facility] Weight 2017-12-15 16:46:00 [facility] [place] Height 2017-12-15 16:46:00 170.18 cm [facility] Height 2017-12-15 16:11:00 170.18 cm [facility] Weight 2017-12-15 11:31:00 [facility] Procedures Procedure Date / Time Performed Performing Clinician [facility] e Dialysis access site care [facility] Knee maneuver [facility] Shoulder manipulation [facility] Encounters Start End Encounter Admission Attending Care Care Encounter Source Date/Time Date/Time Type Type Clinicians Facility Department ID 2021-11-04 Outpatient 3 [id number] [facility] JACOB [id number] E[facility] 12:13:09 0527 2021-11-04 Outpatient 3 [id number] E[facility] REF E[facility] 12:09:58 0519 2021-11-04 Outpatient 3 [id number] ENC[facility] REF [id number] ENC[facility] 12:08:30 0514 2019-04-05 Inpatient E [facility]BL MED [id number] MHB L 20:14:00 2019-04-05 Inpatient YESENIA SHRESTHA [facility] [id number] [facility] 18:31:48 2021-09-10 2021-09-10 Refill [facility] [id number] Univers 00:00:00 00:00:00 [facility] [id number] it of [facility] [id number] Tai KEYS [id number] Ma dicla [address] 2021-04-22 2021-04-22 Office [facility] [id number] 10:30:14 11:33:56 Visit [facility] [id number] CLINICS [id number] 2021-03-25 2021-03-25 Outpatient R PRETTY [facility] [id number] Q-20 Univers 00:00:00 00:00:00 ADILIA [id number] ity o f [facility] 2020-08-06 2020-08-13 Inpatient [facility] [id number] [facility] 18:41:30 00:50:00 [facility] 2020-08-06 2020-08-12 Inpatient E [facility] MED [id number] MHBL 20:29:00 18:50:00 SHANNA 2020-07-24 2020-07-24 Emergency [facility] [id number] [facility] 12:53:57 16:22:00 dean [facility] 2020-07-24 2020-07-24 Emergency E PATRICIA BL BL [id number] MHBL 07:53:00 11:22:00 TINA 2020-07-06 2020-07-15 Inpatient [facility] [id number] [facility] 10:06:46 22:00:00 dean Sellers 10 [facility] 2020-07-06 2020-07-06 Inpatient E MOVVA, MHBL MED [id number] MHBL 08:50:00 05:06:00 MELIZA 2020-05-21 2020-05-21 Emergency [facility] [id number] [facility] 13:09:59 15:59:00 [facility] 09 [facility] 2020-05-21 2020-05-21 Emergency E VIRGINIE, MHBL MHBL [id number] MHBL 08:09:00 10:59:00 TREVOR 2020-03-23 2020-03-23 Emergency [facility] [id number] [facility] 05:18:16 15:31:00 [facility] [place] 08 [facility] 2020-03-23 2020-03-23 Emergency E TERESA, MHBL MHBL [id number] MHBL 00:18:00 10:31:00 MEGHA 2020-02-03 2020-02-03 Emergency [facility] [id number] [facility] 19:07:14 23:44:00 [facility] [place] 07 [facility] 2020-02-03 2020-02-03 Emergency E GALO, MHBL MHBL [id number] MHBL 14:07:00 18:44:00 MARCI 2019-10-29 2019-11-06 Inpatient [facility] [id number] [facility] 00:57:20 02:15:00 r [place] 06 [facility] 2019-10-30 2019-10-28 Inpatient E MHBL MED [id number] MHBL 14:55:00 23:23:00 2019-08-16 2019-08-20 Inpatient [facility] [id number] Mem[facility] 00:36:00 19:40:00 [facility] 10 [facility] 2019-08-15 2019-08-14 Inpatient U MHBL MED [id number] MHBL 18:36:00 15:56:00 2019-04-06 2019-04-08 Inpatient [facility] [id number] [facility] 01:14:00 21:53:00 [facility] 79 [facility] 2018-07-22 2018-07-24 Inpatient [facility] [id number] [facility] 01:45:00 23:05:00 [facility] [place] 05 [facility] 2018-07-20 2018-07-21 Emergency [facility] [id number] [facility] 22:20:00 02:38:00 [facility] [place] 04 [facility] 2018-05-23 2018-06-22 OP nullFlavo Transplant [id number] [facility] 14:47:00 04:59:00 Transplant r Center 00 l [facility] 2018-04-14 2018-04-15 Observatio [facility] [id number] [facility] 23:17:00 21:55:00 n [facility] [place] 03 [facility] 2018-03-17 2018-03-20 Inpatient [facility] [id number] [facility] 07:25:00 22:12:00 [facility] [place] 02 [facility] 2018-01-22 2018-01-23 Emergency [facility] [id number] Mem[facility] 23:36:00 03:58:00 [facility] [place] 01 [facility] 2017-12-15 2017-12-20 Inpatient [facility] [id number] [facility] 11:29:00 18:55:00 [facility] [place] 00 [facility] Results Test Description Test Time Test Comments Results Result Comments Source CHEM PANEL 2020-08-12 09:42:00 Test Item Value Reference Range Interpretation Comme nts Glucose Lvl (test code = Glucose Lvl) 79 70-99 [facility]2020-11-04 09:42:00 Test Item Value Reference Range Interpretation Comments BUN (test code = BUN) 21 7-22 [facility]2020-11-04 09:42:00 Test Item Value Reference Range Interpretation Comments Creatinine Lvl (test code = Creatinine 7.93 0.50-1.40 Lvl) [facility]2020-11-04 09:42:00 Test Item Value Reference Range Interpretation Comments Sodium Lvl (test code = Sodium Lvl) 139 135-145 [facility]2020-11-04 09:42:00 Test Item Value Reference Range Interpretation Comments Potassium Lvl (test code = Potassium 3.2 3.5-5.1 Lvl) [facility]2020-11-04 09:42:00 Test Item Value Reference Range Interpretation Comments Chloride Lvl (test code = Chloride Lvl) 104 95-109 [facility]2020-11-04 09:42:00 Test Item Value Reference Range Interpretation Comments CO2 (test code = CO2) 27 24-32 [place] [address]-11-04 09:42:00 Test Item Value Reference Range Interpretation Comments Calcium Lvl (test code = Calcium Lvl) 8.8 8.5-10.5 [place] 937090-11-04 09:42:00 Test Item Value Reference Range Interpretation Comments AGAP (test code = AGAP) 11.2 10.0-20.0 [place] [address]-11-04 09:42:00 Test Item Value Reference Range Interpretation Comments eGFR (test code = eGFR) 7 [place] 942770-11-04 09:42:00 Test Item Value Reference Range Interpretation Comments Neutrophils # (test code = Neutrophils 4.7 1.5-8.1 #) [place] [address]-11-04 09:42:00 Test Item Value Reference Range Interpretation Comments Lymphocytes # (test code = Lymphocytes 1.2 1.0-5.5 #) [place] [address]-11-04 09:42:00 Test Item Value Reference Range Interpretation Comments Monocytes # (test code 0.2 See_Comment [Aut omated message] The = Monocytes #) system which generated this result tra nsmitted reference range : <=0.8. The reference r yared was not used to int erpret this result as normal/abnormal . [place] [address]-11-04 09:42:00 Test Item Value Reference Range Interpretation Comments Eosinophils # (test code 0.2 See_Comment [A utomated message] The = Eosinophils #) system whic h generated this result tra nsmitted reference range : <=0.5. The reference r yared was not used to int erpret this result as normal/abnormal . [place] [address]-11-04 09:42:00 Test Item Value Reference Range Interpretation Comments Segs (test code = Segs) 71.0 45.0-75.0 [place] [address]-11-04 09:42:00 Test Item Value Reference Range Interpretation Comments Bands (test code = 2.0 See_Comment [Automat ed message] The Bands) system which ge nerated this result transmit emerson reference range : <=11.0. The reference r yared was not used to interpr et this result as erinn l/abnormal. [facility]NeidgvoERMZWYXAUZ3840-93-77 09:42:00 Test Item Value Reference Range Interpretation Comments Lymphocytes (test code = Lymphocytes) 18.0 20.0-40.0 [facility] TexasWvoiedcDEFTZEQYHV1576-27-86 09:42:00 Test Item Value Reference Range Interpretation Comments Monocytes (test code = Monocytes) 3.0 2.0-12.0 [facility] TexasWkidmfpFYUTRFLPLC0095-81-66 09:42:00 Test Item Value Reference Range Interpretation Comments Eosinophils (test code = 3.0 See_Comment [A utomated message] The Eosinophils) system which ge nerated this result tra nsmitted reference range : <=4.0. The reference r yared was not used to int erpret this result as normal/abnormal . [facility] TexasZwscbzaPAXGCUMVDV1803-52-88 09:42:00 Test Item Value Reference Range Interpretation Comments Metamyelocytes (test code 2.0 See_Comment [ Automated message] = Metamyelocytes) The system which generated this result transmitted ref erence range: <=1.0. T he reference range was not used to int erpret this result as normal/abnormal . [facility] TexasGlgtrgwGKMMXIJJHN0282-57-76 09:42:00 Test Item Value Reference Range Interpretation Comments Myelocytes (test code = Myelocytes) 1.0 [facility] TexasUnoopykELHDNIZXSS4621-54-26 09:42:00 Test Item Value Reference Range Interpretation Comments Atypical Lymphs (test code = Atypical 0.0 Lymphs) [facility] TexasTtridxhCFKZESQZOG7499-19-65 09:42:00 Test Item Value Reference Range Interpretation Comments NRBC (test code = NRBC) 1 [facility] TexasPzwinkiOSHDCSVHSF1426-04-53 09:42:00 Test Item Value Reference Range Interpretation Comments RBC Morph (test code = Normal (08/12/20 3:42 RBC Morph) AM) [facility] TexasSojmcblUDPTYYFUJU0227-48-55 09:42:00 Test Item Value Reference Range Interpretation Comments Plt Morph (test code = Normal (08/12/20 3:42 Plt Morph) AM) [facility] TexasYpifvguPZDVYKCECR0080-56-73 09:42:00 Test Item Value Reference Range Interpretation Comments Tot Cell Ct (test code = Tot Cell Ct) 100 1 [facility] TexasQqmwefkUNQYUYLMAO1915-06-86 09:42:00 Test Item Value Reference Range Interpretation Comments Polychrom (test code = Moderate *ABN*(08/12/20 Polychrom) 3:42 AM) [facility] TexasRybcndiNKXLLIRBYP3167-23-05 09:42:00 Test Item Value Reference Range Interpretation Comments WBC (test code = WBC) 6.4 3.7-10.4 [facility] TexasJhsusulHXLGSFVPGI3697-00-14 09:42:00 Test Item Value Reference Range Interpretation Comments RBC (test code = RBC) 3.02 4.70-6.10 [facility] TexasZycpuhfDXMYMIWUXE5358-49-21 09:42:00 Test Item Value Reference Range Interpretation Comments Hgb (test code = Hgb) 9.0 14.0-18.0 [facility] TexasFalxkppNTNWNXBOBO7643-60-65 09:42:00 Test Item Value Reference Range Interpretation Comments Hct (test code = Hct) 25.9 42.0-54.0 [facility] TexasJvhchihZMGRBFGTHM1296-86-77 09:42:00 Test Item Value Reference Range Interpretation Comments MCV (test code = MCV) 85.7 80.0-94.0 [facility] TexasMpuhmkuDWFZGRGTBA4186-62-77 09:42:00 Test Item Value Reference Range Interpretation Comments MCH (test code = MCH) 30.0 pg 27.0-31.0 [facility] TexasJpihbmpZPDWELWYHD3383-30-65 09:42:00 Test Item Value Reference Range Interpretation Comments MCHC (test code = MCHC) 34.9 32.0-36.0 [facility] TexasDiwkdrhARWTTWMGAQ9393-27-35 09:42:00 Test Item Value Reference Range Interpretation Comments RDW (test code = RDW) 14.8 11.5-14.5 [facility] TexasQugnkacWGYWZRBNML0044-19-60 09:42:00 Test Item Value Reference Range Interpretation Comments Platelet (test code = Platelet) 169 133-450 [facility] TexasBddcuirYGHCCRFWIG6524-17-27 09:42:00 Test Item Value Reference Range Interpretation Comments MPV (test code = MPV) 7.0 7.4-10.4 [facility]2020-11-03 09:35:00 Test Item Value Reference Range Interpretation Comments Glucose Lvl (test code = Glucose Lvl) 80 70-99 [facility]2020-11-03 09:35:00 Test Item Value Reference Range Interpretation Comments BUN (test code = BUN) 13 7-22 [place] [address]-11-03 09:35:00 Test Item Value Reference Range Interpretation Comments Creatinine Lvl (test code = Creatinine 5.51 0.50-1.40 Lvl) [place] 937090-11-03 09:35:00 Test Item Value Reference Range Interpretation Comments Sodium Lvl (test code = Sodium Lvl) 140 135-145 [place] 937090-11-03 09:35:00 Test Item Value Reference Range Interpretation Comments Potassium Lvl (test code = Potassium 3.2 3.5-5.1 Lvl) [place] [address]-11-03 09:35:00 Test Item Value Reference Range Interpretation Comments Chloride Lvl (test code = Chloride Lvl) 105 95-109 [place] [address]-11-03 09:35:00 Test Item Value Reference Range Interpretation Comments CO2 (test code = CO2) 28 24-32 [place] [address]-11-03 09:35:00 Test Item Value Reference Range Interpretation Comments Calcium Lvl (test code = Calcium Lvl) 8.4 8.5-10.5 [place] [address]-11-03 09:35:00 Test Item Value Reference Range Interpretation Comments AGAP (test code = AGAP) 10.2 10.0-20.0 [place] [address]-11-03 09:35:00 Test Item Value Reference Range Interpretation Comments eGFR (test code = eGFR) 10 [place] [address]-11-03 09:35:00 Test Item Value Reference Range Interpretation Comments Segs (test code = Segs) 68.4 45.0-75.0 [place] [address]-11-03 09:35:00 Test Item Value Reference Range Interpretation Comments Lymphocytes (test code = Lymphocytes) 17.8 20.0-40.0 [place] [address]-11-03 09:35:00 Test Item Value Reference Range Interpretation Comments Monocytes (test code = Monocytes) 9.3 2.0-12.0 [place] [address]-11-03 09:35:00 Test Item Value Reference Range Interpretation Comments Eosinophils (test code = 3.7 See_Comment [A utomated message] The Eosinophils) system which ge nerated this result tra nsmitted reference range : <=4.0. The reference r yared was not used to int erpret this result as normal/abnormal . [facility] TexasRovkxkmTOIKCWMUCO1677-00-26 09:35:00 Test Item Value Reference Range Interpretation Comments Basophils (test code = 0.8 See_Comment [Aut omated message] The Basophils) system which ge nerated this result tra nsmitted reference range : <=1.0. The reference r yared was not used to int erpret this result as normal/abnormal . [facility] TexasDxgetzvPDNHWLVKAG6033-52-51 09:35:00 Test Item Value Reference Range Interpretation Comments Neutrophils # (test code = Neutrophils 4.1 1.5-8.1 #) [facility] TexasAfanhugCQXMOHAFDL4265-20-68 09:35:00 Test Item Value Reference Range Interpretation Comments Lymphocytes # (test code = Lymphocytes 1.1 1.0-5.5 #) [facility] TexasVxzwoniRWIPVMEYXQ4743-16-63 09:35:00 Test Item Value Reference Range Interpretation Comments Monocytes # (test code 0.6 See_Comment [Aut omated message] The = Monocytes #) system which generated this result tra nsmitted reference range : <=0.8. The reference r yared was not used to int erpret this result as normal/abnormal . [facility] TexasTrwfdxhFRKFSQJYFC2199-36-54 09:35:00 Test Item Value Reference Range Interpretation Comments Eosinophils # (test code 0.2 See_Comment [A utomated message] The = Eosinophils #) system whic h generated this result tra nsmitted reference range : <=0.5. The reference r yared was not used to int erpret this result as normal/abnormal . [facility] TexasWqkkbdsDLUGANBFPL3175-52-38 09:35:00 Test Item Value Reference Range Interpretation Comments WBC (test code = WBC) 6.0 3.7-10.4 [place] [address]-11-03 09:35:00 Test Item Value Reference Range Interpretation Comments RBC (test code = RBC) 2.84 4.70-6.10 [place] [address]-11-03 09:35:00 Test Item Value Reference Range Interpretation Comments Hgb (test code = Hgb) 8.1 14.0-18.0 [place] 942770-11-03 09:35:00 Test Item Value Reference Range Interpretation Comments Hct (test code = Hct) 24.2 42.0-54.0 [place] [address]-11-03 09:35:00 Test Item Value Reference Range Interpretation Comments MCV (test code = MCV) 85.3 80.0-94.0 [place] [address]-11-03 09:35:00 Test Item Value Reference Range Interpretation Comments MCH (test code = MCH) 28.7 pg 27.0-31.0 [place] [address]-11-03 09:35:00 Test Item Value Reference Range Interpretation Comments MCHC (test code = MCHC) 33.6 32.0-36.0 [place] [address]-11-03 09:35:00 Test Item Value Reference Range Interpretation Comments RDW (test code = RDW) 14.5 11.5-14.5 [place] [address]-11-03 09:35:00 Test Item Value Reference Range Interpretation Comments Platelet (test code = Platelet) 171 133-450 [place] [address]-11-03 09:35:00 Test Item Value Reference Range Interpretation Comments MPV (test code = MPV) 7.4 7.4-10.4 [facility]2020-11-02 09:39:00 Test Item Value Reference Range Interpretation Comments Glucose Lvl (test code = Glucose Lvl) 110 70-99 [facility]2020-11-02 09:39:00 Test Item Value Reference Range Interpretation Comments BUN (test code = BUN) 21 7-22 [facility]2020-11-02 09:39:00 Test Item Value Reference Range Interpretation Comments Creatinine Lvl (test code = Creatinine 6.77 0.50-1.40 Lvl) [facility]2020-11-02 09:39:00 Test Item Value Reference Range Interpretation Comments Sodium Lvl (test code = Sodium Lvl) 139 135-145 [facility]2020-11-02 09:39:00 Test Item Value Reference Range Interpretation Comments Potassium Lvl (test code = Potassium 3.5 3.5-5.1 Lvl) [facility]2020-11-02 09:39:00 Test Item Value Reference Range Interpretation Comments Chloride Lvl (test code = Chloride Lvl) 104 95-109 [place] 937090-11-02 09:39:00 Test Item Value Reference Range Interpretation Comments CO2 (test code = CO2) 29 24-32 [place] [address]-11-02 09:39:00 Test Item Value Reference Range Interpretation Comments AGAP (test code = AGAP) 9.5 10.0-20.0 [place] 937090-11-02 09:39:00 Test Item Value Reference Range Interpretation Comments Calcium Lvl (test code = Calcium Lvl) 7.9 8.5-10.5 [place] 937090-11-02 09:39:00 Test Item Value Reference Range Interpretation Comments eGFR (test code = eGFR) 8 [place] 942770-11-02 09:39:00 Test Item Value Reference Range Interpretation Comments Neutrophils # (test code = Neutrophils 3.8 1.5-8.1 #) [place] [address]-11-02 09:39:00 Test Item Value Reference Range Interpretation Comments Lymphocytes # (test code = Lymphocytes 1.1 1.0-5.5 #) [place] 942770-11-02 09:39:00 Test Item Value Reference Range Interpretation Comments Monocytes # (test code 0.2 See_Comment [Aut omated message] The = Monocytes #) system which generated this result tra nsmitted reference range : <=0.8. The reference r yared was not used to int erpret this result as normal/abnormal . [place] 942770-11-02 09:39:00 Test Item Value Reference Range Interpretation Comments Eosinophils # (test code 0.4 See_Comment [A utomated message] The = Eosinophils #) system whic h generated this result tra nsmitted reference range : <=0.5. The reference r yared was not used to int erpret this result as normal/abnormal . [place] [address]-11-02 09:39:00 Test Item Value Reference Range Interpretation Comments Segs (test code = Segs) 64.0 45.0-75.0 [place] [address]-11-02 09:39:00 Test Item Value Reference Range Interpretation Comments Bands (test code = 2.0 See_Comment [Automat ed message] The Bands) system which ge nerated this result transmit emerson reference range : <=11.0. The reference r yared was not used to interpr et this result as erinn l/abnormal. [facility]AppnrrlVSXPMGEYZX0366-05-98 09:39:00 Test Item Value Reference Range Interpretation Comments Lymphocytes (test code = Lymphocytes) 20.0 20.0-40.0 [place] 942770-11-02 09:39:00 Test Item Value Reference Range Interpretation Comments Monocytes (test code = Monocytes) 4.0 2.0-12.0 [place] [address]-11-02 09:39:00 Test Item Value Reference Range Interpretation Comments Eosinophils (test code = 7.0 See_Comment [A utomated message] The Eosinophils) system which ge nerated this result tra nsmitted reference range : <=4.0. The reference r yared was not used to int erpret this result as normal/abnormal . [place] 942770-11-02 09:39:00 Test Item Value Reference Range Interpretation Comments Myelocytes (test code = Myelocytes) 3.0 [place] 942770-11-02 09:39:00 Test Item Value Reference Range Interpretation Comments Atypical Lymphs (test code = Atypical 0.0 Lymphs) [place] 942770-11-02 09:39:00 Test Item Value Reference Range Interpretation Comments NRBC (test code = NRBC) 1 [place] 942770-11-02 09:39:00 Test Item Value Reference Range Interpretation Comments RBC Morph (test code = Normal (08/10/20 3:39 RBC Morph) AM) [facility] TexasCztdpxlYMUUDDDWQS1336-07-82 09:39:00 Test Item Value Reference Range Interpretation Comments Plt Morph (test code = Normal (08/10/20 3:39 Plt Morph) AM) [facility] TexasWvdrsoaTDNTACVLHW8947-66-67 09:39:00 Test Item Value Reference Range Interpretation Comments WBC (test code = WBC) 5.7 3.7-10.4 [place] 942770-11-02 09:39:00 Test Item Value Reference Range Interpretation Comments RBC (test code = RBC) 2.61 4.70-6.10 [place] [address]-11-02 09:39:00 Test Item Value Reference Range Interpretation Comments Hgb (test code = Hgb) 7.5 14.0-18.0 [place] 942770-11-02 09:39:00 Test Item Value Reference Range Interpretation Comments Hct (test code = Hct) 22.3 42.0-54.0 [facility] TexasVyfypqmDJTMYVJXCT3943-44-13 09:39:00 Test Item Value Reference Range Interpretation Comments MCV (test code = MCV) 85.6 80.0-94.0 [place] 942770-11-02 09:39:00 Test Item Value Reference Range Interpretation Comments MCH (test code = MCH) 28.8 pg 27.0-31.0 [place] [address]-11-02 09:39:00 Test Item Value Reference Range Interpretation Comments MCHC (test code = MCHC) 33.6 32.0-36.0 [facility] TexasHvywgwmZEXBQZGALR7568-96-21 09:39:00 Test Item Value Reference Range Interpretation Comments RDW (test code = RDW) 13.9 11.5-14.5 [facility] TexasXmzwvgdYEVAESQHQJ6851-69-28 09:39:00 Test Item Value Reference Range Interpretation Comments Platelet (test code = Platelet) 164 133-450 [facility] TexasVzeydfkVDGSITVYQB5695-03-86 09:39:00 Test Item Value Reference Range Interpretation Comments MPV (test code = MPV) 7.5 7.4-10.4 [place] [address]-11-01 16:40:00 Test Item Value Reference Range Interpretation Comments WBC (test code = WBC) 5.7 3.7-10.4 [facility] TexasWwqyywgRBCHIDMJBX2306-69-09 16:40:00 Test Item Value Reference Range Interpretation Comments RBC (test code = RBC) 2.82 4.70-6.10 [facility] TexasErrhpobAIHVUATLJJ0162-70-32 16:40:00 Test Item Value Reference Range Interpretation Comments Hgb (test code = Hgb) 8.0 14.0-18.0 [place] [address]-11-01 16:40:00 Test Item Value Reference Range Interpretation Comments Hct (test code = Hct) 24.2 42.0-54.0 [place] [address]-11-01 16:40:00 Test Item Value Reference Range Interpretation Comments MCV (test code = MCV) 85.8 80.0-94.0 [place] 942770-11-01 16:40:00 Test Item Value Reference Range Interpretation Comments MCH (test code = MCH) 28.6 pg 27.0-31.0 [facility] TexasFfpwsoxCEARBYQKYP6441-38-91 16:40:00 Test Item Value Reference Range Interpretation Comments MCHC (test code = MCHC) 33.3 32.0-36.0 [facility] TexasYtioifiNYONUPVKQP9147-58-31 16:40:00 Test Item Value Reference Range Interpretation Comments RDW (test code = RDW) 14.1 11.5-14.5 [facility] TexasKedcjvrCBKESJCZVH0131-77-08 16:40:00 Test Item Value Reference Range Interpretation Comments Platelet (test code = Platelet) 169 133-450 [facility] TexasHshjgncDTSBJUGMUH3680-78-68 16:40:00 Test Item Value Reference Range Interpretation Comments MPV (test code = MPV) 7.2 7.4-10.4 [place] 942770-11-01 16:40:00 Test Item Value Reference Range Interpretation Comments Segs (test code = Segs) 72.6 45.0-75.0 [facility] TexasGlltllbSNIKHOLZWR7158-11-32 16:40:00 Test Item Value Reference Range Interpretation Comments Lymphocytes (test code = Lymphocytes) 14.6 20.0-40.0 [facility] TexasKufgmtcKQDCWUWRKA8662-01-84 16:40:00 Test Item Value Reference Range Interpretation Comments Monocytes (test code = Monocytes) 7.8 2.0-12.0 [place] 942770-11-01 16:40:00 Test Item Value Reference Range Interpretation Comments Eosinophils (test code = 4.4 See_Comment [A utomated message] The Eosinophils) system which ge nerated this result tra nsmitted reference range : <=4.0. The reference r yared was not used to int erpret this result as normal/abnormal . [facility] TexasVzprhssHDKQQPXUMA1973-35-01 16:40:00 Test Item Value Reference Range Interpretation Comments Basophils (test code = 0.6 See_Comment [Aut omated message] The Basophils) system which ge nerated this result tra nsmitted reference range : <=1.0. The reference r yared was not used to int erpret this result as normal/abnormal . [facility] TexasXdirlanMCYDCHTRTE8158-66-94 16:40:00 Test Item Value Reference Range Interpretation Comments Neutrophils # (test code = Neutrophils 4.2 1.5-8.1 #) [facility] TexasEvfccwzLPCPHBYKRP2376-78-41 16:40:00 Test Item Value Reference Range Interpretation Comments Lymphocytes # (test code = Lymphocytes 0.8 1.0-5.5 #) [facility] TexasPpjracgOVAKJIXWGO0940-97-73 16:40:00 Test Item Value Reference Range Interpretation Comments Monocytes # (test code 0.4 See_Comment [Aut omated message] The = Monocytes #) system which generated this result tra nsmitted reference range : <=0.8. The reference r yared was not used to int erpret this result as normal/abnormal . [place] 942770-11-01 16:40:00 Test Item Value Reference Range Interpretation Comments Eosinophils # (test code 0.2 See_Comment [A utomated message] The = Eosinophils #) system whic h generated this result tra nsmitted reference range : <=0.5. The reference r yared was not used to int erpret this result as normal/abnormal . [facility] [place], TXZkrrlucEZFWFRWAQI9695-78-25 16:40:00 Test Item Value Reference Range Interpretation Comments Hep B Core Ab (test code = Hep B NON-REACTIVE Core Ab) [place] 260230-11-01 16:40:00 Test Item Value Reference Range Interpretation Comments Hep Bs Ag (test code = Hep Bs NON-REACTIVE Ag) [place] 260230-11-01 16:40:00 Test Item Value Reference Range Interpretation Comments Hep Bs Ab (test code = Hep Bs Ab) 7 [facility]2020-11-01 14:48:00 Test Item Value Reference Range Interpretation Comments Glucose Lvl (test code = Glucose Lvl) 70 70-99 [place] 937090-11-01 14:48:00 Test Item Value Reference Range Interpretation Comments BUN (test code = BUN) 25 7-22 [place] 937090-11-01 14:48:00 Test Item Value Reference Range Interpretation Comments Creatinine Lvl (test code = Creatinine 8.85 0.50-1.40 Lvl) [place] 937090-11-01 14:48:00 Test Item Value Reference Range Interpretation Comments Sodium Lvl (test code = Sodium Lvl) 139 135-145 [place] 937090-11-01 14:48:00 Test Item Value Reference Range Interpretation Comments Potassium Lvl (test code = Potassium 4.0 3.5-5.1 Lvl) [place] [address]-11-01 14:48:00 Test Item Value Reference Range Interpretation Comments Chloride Lvl (test code = Chloride Lvl) 100 95-109 [place] [address]-11-01 14:48:00 Test Item Value Reference Range Interpretation Comments CO2 (test code = CO2) 30 24-32 [place] [address]-11-01 14:48:00 Test Item Value Reference Range Interpretation Comments Calcium Lvl (test code = Calcium Lvl) 7.5 8.5-10.5 [place] [address]-11-01 14:48:00 Test Item Value Reference Range Interpretation Comments Total Protein (test code = Total 4.2 6.4-8.4 Protein) [place] [address]-11-01 14:48:00 Test Item Value Reference Range Interpretation Comments Albumin Lvl (test code = Albumin Lvl) 1.3 3.5-5.0 [place] [address]-11-01 14:48:00 Test Item Value Reference Range Interpretation Comments ALT (test code = ALT) 14 See_Comment [Auto mated message] The system which ge nerated this result transmit emerson reference range : <=65. The reference range was not used to interpr et this result as erinn l/abnormal. [place] [address]-11-01 14:48:00 Test Item Value Reference Range Interpretation Comments AST (test code = AST) 17 See_Comment [Auto mated message] The system which ge nerated this result transmit emerson reference range : <=37. The reference range was not used to interpr et this result as erinn l/abnormal. [place] 937090-11-01 14:48:00 Test Item Value Reference Range Interpretation Comments Alk Phos (test code = Alk Phos) 92 39-136 [place] [address]-11-01 14:48:00 Test Item Value Reference Range Interpretation Comments Bili Total (test code = Bili Total) 0.5 0.2-1.3 [place] [address]-11-01 14:48:00 Test Item Value Reference Range Interpretation Comments AGAP (test code = AGAP) 13.0 10.0-20.0 [facility]2020-11-01 14:48:00 Test Item Value Reference Range Interpretation Comments B/C Ratio (test code = B/C Ratio) 3 1 6-25 [place] 937090-11-01 14:48:00 Test Item Value Reference Range Interpretation Comments Globulin (test code = Globulin) 2.9 2.7-4.2 [place] 937090-11-01 14:48:00 Test Item Value Reference Range Interpretation Comments A/G Ratio (test code = A/G Ratio) 0.4 1 0.7-1.6 [place] 937090-11-01 14:48:00 Test Item Value Reference Range Interpretation Comments eGFR (test code = eGFR) 6 [facility]2020-11-01 14:48:00 Test Item Value Reference Range Interpretation Comments Magnesium Lvl (test code = Magnesium 1.8 1.8-2.4 Lvl) [facility] TexasAnwtnalKRTSPZQHAE5518-05-70 10:41:00 Test Item Value Reference Range Interpretation Comments Hgb (test code = Hgb) 7.6 14.0-18.0 [place] 942770-11-01 02:33:00 Test Item Value Reference Range Interpretation Comments Hgb (test code = Hgb) 7.9 14.0-18.0 [place] 942770-10-31 20:10:00 Test Item Value Reference Range Interpretation Comments Hct (test code = Hct) 23.0 42.0-54.0 [facility]2020-10-31 19:15:00 Test Item Value Reference Range Interpretation Comments Color BF (test code = Light Yellow (08/08/20 Color BF) 2:15 PM) [facility]2020-10-31 19:15:00 Test Item Value Reference Range Interpretation Comments Clarity BF (test code = Slight Cloudy Clarity BF) (08/08/20 2:15 PM) [facility]2020-10-31 19:15:00 Test Item Value Reference Range Interpretation Comments Nucleated Cells BF (test code = 571 Nucleated Cells BF) [facility]2020-10-31 19:15:00 Test Item Value Reference Range Interpretation Comments RBC BF (test code = RBC BF) 512 [facility]2020-10-31 19:15:00 Test Item Value Reference Range Interpretation Comments Neutrophils BF (test code = Neutrophils 18 BF) [facility]2020-10-31 19:15:00 Test Item Value Reference Range Interpretation Comments Lymph BF (test code = Lymph BF) 10 [facility]2020-10-31 19:15:00 Test Item Value Reference Range Interpretation Comments Macrophage BF (test code = Macrophage 44 BF) [facility]2020-10-31 19:15:00 Test Item Value Reference Range Interpretation Comments Eos BF (test code = Eos BF) 26 [facility]2020-10-31 19:15:00 Test Item Value Reference Range Interpretation Comments Meso BF (test code = Meso BF) 2 [facility]2020-10-31 19:15:00 Test Item Value Reference Range Interpretation Comments CellCnt BF Type (test Abdomn (08/08/20 2:15 code = CellCnt BF Type) PM) [facility] Efgspq4594-56-21 19:15:00 Test Item Value Reference Range Interpretation Comments Gram Stain Report Few WBC's No Organisms (test code = Gram Seen Stain Report) [facility] HospitalCulture: Aspirate/Body Fluid/Hsnpct9341-27-58 19:15:00 Test Item Value Reference Range Interpretation Comments Culture: Aspirate/Body Fluid/Tissue No Growth (test code = Culture: Aspirate/Body Fluid/Tissue) [facility] EZDNOLH4148-80-14 15:28:09 Test Item Value Reference Range Interpretation Comments RBC product (test code Product available = RBC product) 4(08/08/20 10:28 AM) [facility] [id number] 14:41:00 Test Item Value Reference Range Interpretation Comments ABO/Rh (test code = ABO/Rh) O POS [facility] XWQFQTK8848-84-02 14:41:00 Test Item Value Reference Range Interpretation Comments Antibody Scrn (test Negative (08/08/20 code = Antibody Scrn) 9:41 AM) [facility]LMBSWIDGHN9744[facility] 14:41:00 Test Item Value Reference Range Interpretation Comments WBC (test code = WBC) 6.0 3.7-10.4 [facility]QqnyecjHDIYSVESBS3119-87-65 14:41:00 Test Item Value Reference Range Interpretation Comments RBC (test code = RBC) 2.32 4.70-6.10 [place] 942770-10-31 14:41:00 Test Item Value Reference Range Interpretation Comments Hct (test code = Hct) 19.8 42.0-54.0 [place] 942770-10-31 14:41:00 Test Item Value Reference Range Interpretation Comments MCV (test code = MCV) 85.6 80.0-94.0 [place] 942770-10-31 14:41:00 Test Item Value Reference Range Interpretation Comments MCH (test code = MCH) 29.0 pg 27.0-31.0 [place] 942770-10-31 14:41:00 Test Item Value Reference Range Interpretation Comments MCHC (test code = MCHC) 33.8 32.0-36.0 [place] 942770-10-31 14:41:00 Test Item Value Reference Range Interpretation Comments RDW (test code = RDW) 13.9 11.5-14.5 [place] 942770-10-31 14:41:00 Test Item Value Reference Range Interpretation Comments Platelet (test code = Platelet) 176 133-450 [place] 942770-10-31 14:41:00 Test Item Value Reference Range Interpretation Comments MPV (test code = MPV) 6.8 7.4-10.4 [place] 942770-10-31 14:41:00 Test Item Value Reference Range Interpretation Comments Neutrophils # (test code = Neutrophils 4.1 1.5-8.1 #) [place] 942770-10-31 14:41:00 Test Item Value Reference Range Interpretation Comments Lymphocytes # (test code = Lymphocytes 1.4 1.0-5.5 #) [place] 942770-10-31 14:41:00 Test Item Value Reference Range Interpretation Comments Monocytes # (test code 0.1 See_Comment [Aut omated message] The = Monocytes #) system which generated this result tra nsmitted reference range : <=0.8. The reference r yared was not used to int erpret this result as normal/abnormal . [place] 942770-10-31 14:41:00 Test Item Value Reference Range Interpretation Comments Eosinophils # (test code 0.4 See_Comment [A utomated message] The = Eosinophils #) system whic h generated this result tra nsmitted reference range : <=0.5. The reference r yared was not used to int erpret this result as normal/abnormal . [facility] TexasPxazmjdQUUPGZWZHV3971-26-55 14:41:00 Test Item Value Reference Range Interpretation Comments Segs (test code = Segs) 68.0 45.0-75.0 [place] 942770-10-31 14:41:00 Test Item Value Reference Range Interpretation Comments Bands (test code = 1.0 See_Comment [Automat ed message] The Bands) system which ge nerated this result transmit emerson reference range : <=11.0. The reference r yared was not used to interpr et this result as erinn l/abnormal. [facility] TexasQovpbtfWXAZIWSRRX3209-39-38 14:41:00 Test Item Value Reference Range Interpretation Comments Lymphocytes (test code = Lymphocytes) 14.0 20.0-40.0 [place] 942770-10-31 14:41:00 Test Item Value Reference Range Interpretation Comments Monocytes (test code = Monocytes) 2.0 2.0-12.0 [place] 942770-10-31 14:41:00 Test Item Value Reference Range Interpretation Comments Eosinophils (test code = 6.0 See_Comment [A utomated message] The Eosinophils) system which ge nerated this result tra nsmitted reference range : <=4.0. The reference r yared was not used to int erpret this result as normal/abnormal . [facility] TexasOocfcmxFCWIZJEBTA6521-47-44 14:41:00 Test Item Value Reference Range Interpretation Comments Atypical Lymphs (test code = Atypical 9.0 Lymphs) [place] [address]-10-31 14:41:00 Test Item Value Reference Range Interpretation Comments RBC Morph (test code = See Note (08/08/20 RBC Morph) 9:41 AM) [place] [address]-10-31 14:41:00 Test Item Value Reference Range Interpretation Comments Plt Morph (test code = Normal (08/08/20 9:41 Plt Morph) AM) [place] 942770-10-31 14:41:00 Test Item Value Reference Range Interpretation Comments Anisocyte (test code = 1+ *ABN*(08/08/20 Anisocyte) 9:41 AM) [place] [address]-10-31 14:41:00 Test Item Value Reference Range Interpretation Comments Macrocyte (test code = 1+ *ABN*(08/08/20 Macrocyte) 9:41 AM) [place] 942770-10-31 14:41:00 Test Item Value Reference Range Interpretation Comments Hypochrom (test code = 1+ (08/08/20 9:41 Hypochrom) AM) [place] [address]-10-31 14:41:00 Test Item Value Reference Range Interpretation Comments Polychrom (test code = Moderate Polychrom) *ABN*(08/08/20 9:41 AM) [place] 937090-10-31 08:42:00 Test Item Value Reference Range Interpretation Comments Glucose Lvl (test code = Glucose Lvl) 80 70-99 [place] 937090-10-31 08:42:00 Test Item Value Reference Range Interpretation Comments BUN (test code = BUN) 34 7-22 [place] 937090-10-31 08:42:00 Test Item Value Reference Range Interpretation Comments Creatinine Lvl (test code = Creatinine 10.90 0.50-1.40 Lvl) [place] 937090-10-31 08:42:00 Test Item Value Reference Range Interpretation Comments Sodium Lvl (test code = Sodium Lvl) 138 135-145 [place] 937090-10-31 08:42:00 Test Item Value Reference Range Interpretation Comments Potassium Lvl (test code = Potassium 3.6 3.5-5.1 Lvl) [place] 937090-10-31 08:42:00 Test Item Value Reference Range Interpretation Comments Chloride Lvl (test code = Chloride Lvl) 99 95-109 [place] 937090-10-31 08:42:00 Test Item Value Reference Range Interpretation Comments CO2 (test code = CO2) 33 24-32 [place] 937090-10-31 08:42:00 Test Item Value Reference Range Interpretation Comments Calcium Lvl (test code = Calcium Lvl) 8.1 8.5-10.5 [place] 937090-10-31 08:42:00 Test Item Value Reference Range Interpretation Comments AGAP (test code = AGAP) 9.6 10.0-20.0 [facility] [id number] 08:42:00 Test Item Value Reference Range Interpretation Comments eGFR (test code = eGFR) 5 [facility] BEXNO9590-46-34 08:42:00 Test Item Value Reference Range Interpretation Comments Phosphorus (test code = Phosphorus) 4.4 2.5-4.5 [facility] TexasMhtpzyiFJBSSBTNBH6472-87-83 08:42:00 Test Item Value Reference Range Interpretation Comments WBC (test code = WBC) 6.7 3.7-10.4 [place] 942770-10-31 08:42:00 Test Item Value Reference Range Interpretation Comments RBC (test code = RBC) 2.53 4.70-6.10 [facility] TexasFpafzoxFRLBZQSHKX2702-65-61 08:42:00 Test Item Value Reference Range Interpretation Comments MCV (test code = MCV) 84.8 80.0-94.0 [place] 942770-10-31 08:42:00 Test Item Value Reference Range Interpretation Comments MCH (test code = MCH) 28.5 pg 27.0-31.0 [place] 942770-10-31 08:42:00 Test Item Value Reference Range Interpretation Comments MCHC (test code = MCHC) 33.6 32.0-36.0 [facility] TexasYzeghshVGRGIBDMSE3260-96-01 08:42:00 Test Item Value Reference Range Interpretation Comments RDW (test code = RDW) 14.4 11.5-14.5 [facility] TexasHmayjmhNYEVQWIJKO6869-04-35 08:42:00 Test Item Value Reference Range Interpretation Comments Platelet (test code = Platelet) 182 133-450 [place] 942770-10-31 08:42:00 Test Item Value Reference Range Interpretation Comments MPV (test code = MPV) 7.0 7.4-10.4 [place] 942770-10-31 08:42:00 Test Item Value Reference Range Interpretation Comments Segs (test code = Segs) 71.1 45.0-75.0 [place] 942770-10-31 08:42:00 Test Item Value Reference Range Interpretation Comments Lymphocytes (test code = Lymphocytes) 16.3 20.0-40.0 [place] 942770-10-31 08:42:00 Test Item Value Reference Range Interpretation Comments Monocytes (test code = Monocytes) 8.0 2.0-12.0 [place] 942770-10-31 08:42:00 Test Item Value Reference Range Interpretation Comments Eosinophils (test code = 4.0 See_Comment [A utomated message] The Eosinophils) system which ge nerated this result tra nsmitted reference range : <=4.0. The reference r yared was not used to int erpret this result as normal/abnormal . [place] 942770-10-31 08:42:00 Test Item Value Reference Range Interpretation Comments Basophils (test code = 0.6 See_Comment [Aut omated message] The Basophils) system which ge nerated this result tra nsmitted reference range : <=1.0. The reference r yared was not used to int erpret this result as normal/abnormal . [place] 942770-10-31 08:42:00 Test Item Value Reference Range Interpretation Comments Neutrophils # (test code = Neutrophils 4.7 1.5-8.1 #) [place] 942770-10-31 08:42:00 Test Item Value Reference Range Interpretation Comments Lymphocytes # (test code = Lymphocytes 1.1 1.0-5.5 #) [place] 942770-10-31 08:42:00 Test Item Value Reference Range Interpretation Comments Monocytes # (test code 0.5 See_Comment [Aut omated message] The = Monocytes #) system which generated this result tra nsmitted reference range : <=0.8. The reference r yared was not used to int erpret this result as normal/abnormal . [place] 942770-10-31 08:42:00 Test Item Value Reference Range Interpretation Comments Eosinophils # (test code 0.3 See_Comment [A utomated message] The = Eosinophils #) system whic h generated this result tra nsmitted reference range : <=0.5. The reference r yared was not used to int erpret this result as normal/abnormal . [place] 942770-10-31 02:01:00 Test Item Value Reference Range Interpretation Comments PT (test code = PT) 13.2 s 12.0-14.7 [place] [address]-10-31 02:01:00 Test Item Value Reference Range Interpretation Comments INR (test code = INR) 1.00 1 0.85-1.17 [facility]tqwvbjRATBEHUNYF3974-53-22 02:01:00 Test Item Value Reference Range Interpretation Comments PTT (test code = PTT) 29.8 s 22.9-35.8 [facility] HospitalBrxlauaXZKNINRORQ3297-22-08 02:01:00 Test Item Value Reference Range Interpretation Comments Basophils (test code = 0.6 See_Comment [Aut omated message] The Basophils) system which ge nerated this result tra nsmitted reference range : <=1.0. The reference r yared was not used to int erpret this result as normal/abnormal . [facility] HospitalGoalxakQDWQHLBNSM1457-39-76 02:01:00 Test Item Value Reference Range Interpretation Comments Hep Bs Ag (test code Negative *NA*(08/07/20 = Hep Bs Ag) 9:01 PM) [facility]2020-10-30 21:23:00 Test Item Value Reference Range Interpretation Comments Glucose Lvl (test code = Glucose Lvl) 72 70-99 [facility]2020-10-30 21:23:00 Test Item Value Reference Range Interpretation Comments BUN (test code = BUN) 28 7-22 [facility]2020-10-30 21:23:00 Test Item Value Reference Range Interpretation Comments Creatinine Lvl (test code = Creatinine 9.63 0.50-1.40 Lvl) [facility]2020-10-30 21:23:00 Test Item Value Reference Range Interpretation Comments Sodium Lvl (test code = Sodium Lvl) 137 135-145 [facility] [id number] 21:23:00 Test Item Value Reference Range Interpretation Comments Potassium Lvl (test code = Potassium 3.6 3.5-5.1 Lvl) [facility]2020-10-30 21:23:00 Test Item Value Reference Range Interpretation Comments Chloride Lvl (test code = Chloride Lvl) 99 95-109 [facility]2020-10-30 21:23:00 Test Item Value Reference Range Interpretation Comments CO2 (test code = CO2) 32 24-32 [facility]2020-10-30 21:23:00 Test Item Value Reference Range Interpretation Comments AGAP (test code = AGAP) 9.6 10.0-20.0 [facility] [id number] 21:23:00 Test Item Value Reference Range Interpretation Comments Calcium Lvl (test code = Calcium Lvl) 8.3 8.5-10.5 [facility] [id number] 21:23:00 Test Item Value Reference Range Interpretation Comments eGFR (test code = eGFR) 5 [facility] [id number] 15:21:00 Test Item Value Reference Range Interpretation Comments Coronavirus (COVID-19) Not Detected JUVENCIO (test code = (08/07/20 10:21 AM) Coronavirus (COVID-19) JUVENCIO) [facility] [id number] 08:08:00 Test Item Value Reference Range Interpretation Comments Total CK (test code = Total CK) 50 12-191 [facility] [id number] 08:08:00 Test Item Value Reference Range Interpretation Comments B/C Ratio (test code = B/C Ratio) 3 1 6-25 [facility] [id number] 08:08:00 Test Item Value Reference Range Interpretation Comments Total Protein (test code = Total 4.5 6.4-8.4 Protein) [facility] [id number] 08:08:00 Test Item Value Reference Range Interpretation Comments Albumin Lvl (test code = Albumin Lvl) 1.4 3.5-5.0 [facility] [id number] 08:08:00 Test Item Value Reference Range Interpretation Comments Globulin (test code = Globulin) 3.1 2.7-4.2 [facility] [id number] 08:08:00 Test Item Value Reference Range Interpretation Comments A/G Ratio (test code = A/G Ratio) 0.5 1 0.7-1.6 [facility] [id number] 08:08:00 Test Item Value Reference Range Interpretation Comments ALT (test code = ALT) 15 See_Comment [Auto mated message] The system which ge nerated this result transmit emerson reference range : <=65. The reference range was not used to interpr et this result as erinn l/abnormal. [facility] [id number] 08:08:00 Test Item Value Reference Range Interpretation Comments AST (test code = AST) 16 See_Comment [Auto mated message] The system which ge nerated this result transmit emerson reference range : <=37. The reference range was not used to interpr et this result as erinn l/abnormal. [facility] [id number] 08:08:00 Test Item Value Reference Range Interpretation Comments Alk Phos (test code = Alk Phos) 82 39-136 [place] [id number] 08:08:00 Test Item Value Reference Range Interpretation Comments Bili Total (test code = Bili Total) 0.4 0.2-1.3 [facility] [id number] 08:08:00 Test Item Value Reference Range Interpretation Comments Magnesium Lvl (test code = Magnesium 1.7 1.8-2.4 Lvl) [facility] [id number] 08:08:00 Test Item Value Reference Range Interpretation Comments Phosphorus (test code = Phosphorus) 3.8 2.5-4.5 [place] [address]-10-30 08:08:00 Test Item Value Reference Range Interpretation Comments PT (test code = PT) 13.0 s 12.0-14.7 [place] [address]-10-30 08:08:00 Test Item Value Reference Range Interpretation Comments INR (test code = INR) 0.98 1 0.85-1.17 [place] [address]-10-30 08:08:00 Test Item Value Reference Range Interpretation Comments PTT (test code = PTT) 30.5 s 22.9-35.8 [facility] [id number] 08:08:00 Test Item Value Reference Range Interpretation Comments Basophils # (test code 0.1 See_Comment [Aut omated message] The = Basophils #) system which generated this result tra nsmitted reference range : <=0.2. The reference r yared was not used to int erpret this result as normal/abnormal . [facility] HospitalTqmzwadZHVGVGWYSZ2628-10-87 02:04:00 Test Item Value Reference Range Interpretation Comments Basophils # (test code 0.1 See_Comment [Aut omated message] The = Basophils #) system which generated this result tra nsmitted reference range : <=0.2. The reference r yared was not used to int erpret this result as normal/abnormal . [facility] [id number] 01:34:00 Test Item Value Reference Range Interpretation Comments Total Protein (test code = Total 4.8 6.4-8.4 Protein) [place] [address]-10-30 01:34:00 Test Item Value Reference Range Interpretation Comments Albumin Lvl (test code = Albumin Lvl) 1.6 3.5-5.0 [place] [address]-10-30 01:34:00 Test Item Value Reference Range Interpretation Comments Globulin (test code = Globulin) 3.2 2.7-4.2 [place] [address]-10-30 01:34:00 Test Item Value Reference Range Interpretation Comments A/G Ratio (test code = A/G Ratio) 0.5 1 0.7-1.6 [place] [address]-10-30 01:34:00 Test Item Value Reference Range Interpretation Comments ALT (test code = ALT) 14 See_Comment [Auto mated message] The system which ge nerated this result transmit emerson reference range : <=65. The reference range was not used to interpr et this result as erinn l/abnormal. [facility] [id number] 01:34:00 Test Item Value Reference Range Interpretation Comments AST (test code = AST) 16 See_Comment [Auto mated message] The system which ge nerated this result transmit emerson reference range : <=37. The reference range was not used to interpr et this result as erinn l/abnormal. [place] [address]-10-30 01:34:00 Test Item Value Reference Range Interpretation Comments Alk Phos (test code = Alk Phos) 85 39-136 [facility] [id number] 01:34:00 Test Item Value Reference Range Interpretation Comments Bili Total (test code = Bili Total) 0.4 0.2-1.3 [facility] [id number] 01:34:00 Test Item Value Reference Range Interpretation Comments Bili Direct (test code no gt See_Comment [Aut omated message] The = Bili Direct) system which generated this result tra nsmitted reference range : <=0.3. The reference r yared was not used to int erpret this result as erinn l/abnormal. [facility] [id number] 01:34:00 Test Item Value Reference Range Interpretation Comments Bili Indirect Unable to See_Comment [Automated (test code = Bili Calculate message] T he system Indirect) which generated this result transmitted reference range : <=1.0. The reference range was not used to interpret this result as normal/abnormal . [facility] [id number] 22:24:00 Test Item Value Reference Range Interpretation Comments Troponin-I (test code 0.03 See_Comment [Auto mated message] The = Troponin-I) system which g enerated this result transmit emerson reference range : <=0.40. The reference r yared was not used to interpr et this result as erinn l/abnormal. [facility]ann[facility] [id number] 22:24:00 Test Item Value Reference Range Interpretation Comments Magnesium Lvl (test code = Magnesium 1.6 1.8-2.4 Lvl) [facility] [id number] 22:24:00 Test Item Value Reference Range Interpretation Comments Bands (test code = 2.0 See_Comment [Automat ed message] The Bands) system which ge nerated this result transmit emerson reference range : <=11.0. The reference r yared was not used to interpr et this result as erinn l/abnormal. [facility] [id number] 22:24:00 Test Item Value Reference Range Interpretation Comments Metamyelocytes (test code 1.0 See_Comment [ Automated message] = Metamyelocytes) The system which generated this result transmitted ref erence range: <=1.0. T he reference range was not used to int erpret this result as normal/abnormal . [facility] [id number] 22:24:00 Test Item Value Reference Range Interpretation Comments Myelocytes (test code = Myelocytes) 1.0 [facility] Hos[id number] 22:24:00 Test Item Value Reference Range Interpretation Comments Atypical Lymphs (test code = Atypical 0.0 Lymphs) [facility] Hos[id number] 22:24:00 Test Item Value Reference Range Interpretation Comments RBC Morph (test code = Normal (08/06/20 5:24 RBC Morph) PM) [facility]XY7418[facility] 22:24:00 Test Item Value Reference Range Interpretation Comments Plt Morph (test code = Normal (08/06/20 5:24 Plt Morph) PM) [facility] HospitalQrdqrryQSWVFMGWCS1416-09-82 22:24:00 Test Item Value Reference Range Interpretation Comments Toxic Gran (test code Moderate *ABN*(08/06/20 = Toxic Gran) 5:24 PM) [facility] H[id number] 22:24:00 Test Item Value Reference Range Interpretation Comments PT (test code = PT) 12.9 s 12.0-14.7 [facility] Ho[id number] 22:24:00 Test Item Value Reference Range Interpretation Comments INR (test code = INR) 0.97 1 0.85-1.17 [facility] [id number] 13:32:00 Test Item Value Reference Range Interpretation Comments Troponin-I (test code 0.03 See_Comment [Auto mated message] The = Troponin-I) system which g enerated this result transmit emerson reference range : <=0.40. The reference r yared was not used to interpr et this result as erinn l/abnormal. [facility] [id number] 13:32:00 Test Item Value Reference Range Interpretation Comments Glucose Lvl (test code = Glucose Lvl) 101 70-99 [facility] [id number] 13:32:00 Test Item Value Reference Range Interpretation Comments BUN (test code = BUN) 25 7-22 [facility] [id number] 13:32:00 Test Item Value Reference Range Interpretation Comments Creatinine Lvl (test code = Creatinine 9.66 0.50-1.40 Lvl) [facility] [id number] 13:32:00 Test Item Value Reference Range Interpretation Comments Sodium Lvl (test code = Sodium Lvl) 132 135-145 [facility] [id number] 13:32:00 Test Item Value Reference Range Interpretation Comments Potassium Lvl (test code = Potassium 3.0 3.5-5.1 Lvl) [facility] [id number] 13:32:00 Test Item Value Reference Range Interpretation Comments Chloride Lvl (test code = Chloride Lvl) 91 95-109 [facility] [id number] 13:32:00 Test Item Value Reference Range Interpretation Comments CO2 (test code = CO2) 32 24-32 [facility] [id number] 13:32:00 Test Item Value Reference Range Interpretation Comments AGAP (test code = AGAP) 12.0 10.0-20.0 [facility] [id number] 13:32:00 Test Item Value Reference Range Interpretation Comments Calcium Lvl (test code = Calcium Lvl) 8.7 8.5-10.5 [facility] [id number] 13:32:00 Test Item Value Reference Range Interpretation Comments B/C Ratio (test code = B/C Ratio) 3 1 6-25 [facility] [id number] 13:32:00 Test Item Value Reference Range Interpretation Comments Total Protein (test code = Total 4.9 6.4-8.4 Protein) [facility] [id number] 13:32:00 Test Item Value Reference Range Interpretation Comments Albumin Lvl (test code = Albumin Lvl) 1.5 3.5-5.0 [facility] [id number] 13:32:00 Test Item Value Reference Range Interpretation Comments Globulin (test code = Globulin) 3.4 2.7-4.2 [facility] [id number] 13:32:00 Test Item Value Reference Range Interpretation Comments A/G Ratio (test code = A/G Ratio) 0.4 1 0.7-1.6 [facility] [id number] 13:32:00 Test Item Value Reference Range Interpretation Comments ALT (test code = ALT) 16 See_Comment [Auto mated message] The system which ge nerated this result transmit emerson reference range : <=65. The reference range was not used to interpr et this result as erinn l/abnormal. [employer] [id number] 13:32:00 Test Item Value Reference Range Interpretation Comments AST (test code = AST) 22 See_Comment [Auto mated message] The system which ge nerated this result transmit emerson reference range : <=37. The reference range was not used to interpr et this result as erinn l/abnormal. [employer] [id number] 13:32:00 Test Item Value Reference Range Interpretation Comments Alk Phos (test code = Alk Phos) 88 39-136 [facility] [id number] 13:32:00 Test Item Value Reference Range Interpretation Comments Bili Total (test code = Bili Total) 0.5 0.2-1.3 [facility] [id number] 13:32:00 Test Item Value Reference Range Interpretation Comments eGFR (test code = eGFR) 5 [facility] HospitalDlssmveTLCIGKDAQO2730-17-09 13:32:00 Test Item Value Reference Range Interpretation Comments WBC (test code = WBC) 6.2 3.7-10.4 [facility] Hos[id number] 13:32:00 Test Item Value Reference Range Interpretation Comments RBC (test code = RBC) 2.89 4.70-6.10 [facility] HospitalSkeojejOCVPXINQYM7366-71-29 13:32:00 Test Item Value Reference Range Interpretation Comments Hgb (test code = Hgb) 8.4 14.0-18.0 [facility] H[id number] 13:32:00 Test Item Value Reference Range Interpretation Comments Hct (test code = Hct) 24.1 42.0-54.0 [facility] HospitalUolouolULUOGHMSVF1507-45-16 13:32:00 Test Item Value Reference Range Interpretation Comments MCV (test code = MCV) 83.3 80.0-94.0 [facility] HospitalBeulnjmAEZPTBFMHO5622-35-96 13:32:00 Test Item Value Reference Range Interpretation Comments MCH (test code = MCH) 29.0 pg 27.0-31.0 [facility] Hos[id number] 13:32:00 Test Item Value Reference Range Interpretation Comments MCHC (test code = MCHC) 34.8 32.0-36.0 [facility] Hos[id number] 13:32:00 Test Item Value Reference Range Interpretation Comments RDW (test code = RDW) 13.6 11.5-14.5 [facility] H[id number] 13:32:00 Test Item Value Reference Range Interpretation Comments Platelet (test code = Platelet) 221 133-450 [facility] Hospit[id number] 13:32:00 Test Item Value Reference Range Interpretation Comments MPV (test code = MPV) 6.6 7.4-10.4 [facility] HospitalSazisaoXVFTTAKPFH7599-01-56 13:32:00 Test Item Value Reference Range Interpretation Comments Segs (test code = Segs) 73.5 45.0-75.0 [place] [id number] 13:32:00 Test Item Value Reference Range Interpretation Comments Lymphocytes (test code = Lymphocytes) 11.4 20.0-40.0 [place] [id number] 13:32:00 Test Item Value Reference Range Interpretation Comments Monocytes (test code = Monocytes) 8.7 2.0-12.0 [facility]JjdjvdgDTVJSGTRLH6869-98-17 13:32:00 Test Item Value Reference Range Interpretation Comments Eosinophils (test code = 5.4 See_Comment [A utomated message] The Eosinophils) system which ge nerated this result tra nsmitted reference range : <=4.0. The reference r yared was not used to int erpret this result as normal/abnormal . [facility] TexasKwtrsrjQVAOHVZVEB8656-21-05 13:32:00 Test Item Value Reference Range Interpretation Comments Basophils (test code = 1.0 See_Comment [Aut omated message] The Basophils) system which ge nerated this result tra nsmitted reference range : <=1.0. The reference r yared was not used to int erpret this result as normal/abnormal . [facility] TexasTjceaojTLTOBOCZYR3643-06-27 13:32:00 Test Item Value Reference Range Interpretation Comments Neutrophils # (test code = Neutrophils 4.5 1.5-8.1 #) [facility] TexasCjmxqyuLCZUVKZRQU7403-89-29 13:32:00 Test Item Value Reference Range Interpretation Comments Lymphocytes # (test code = Lymphocytes 0.7 1.0-5.5 #) [facility] TexasBojissgWWDUGQPWEA8872-70-23 13:32:00 Test Item Value Reference Range Interpretation Comments Monocytes # (test code 0.5 See_Comment [Aut omated message] The = Monocytes #) system which generated this result tra nsmitted reference range : <=0.8. The reference r yared was not used to int erpret this result as normal/abnormal . [facility] TexasQpawuuuVCEZFXKVHQ7618-28-66 13:32:00 Test Item Value Reference Range Interpretation Comments Eosinophils # (test code 0.3 See_Comment [A utomated message] The = Eosinophils #) system whic h generated this result tra nsmitted reference range : <=0.5. The reference r yared was not used to int erpret this result as normal/abnormal . [facility] TexasJzsvcbnRNWMTTNCBL8701-72-96 13:32:00 Test Item Value Reference Range Interpretation Comments Basophils # (test code 0.1 See_Comment [Aut omated message] The = Basophils #) system which generated this result tra nsmitted reference range : <=0.2. The reference r yared was not used to int erpret this result as normal/abnormal . [employer] [id number] 08:13:00 Test Item Value Reference Range Interpretation Comments Glucose Lvl (test code = Glucose Lvl) 125 70-99 [employer] [id number] 08:13:00 Test Item Value Reference Range Interpretation Comments BUN (test code = BUN) 26 7-22 [employer] [id number] 08:13:00 Test Item Value Reference Range Interpretation Comments Creatinine Lvl (test code = Creatinine 9.23 0.50-1.40 Lvl) [employer] [id number] 08:13:00 Test Item Value Reference Range Interpretation Comments Sodium Lvl (test code = Sodium Lvl) 135 135-145 [employer] [id number] 08:13:00 Test Item Value Reference Range Interpretation Comments Potassium Lvl (test code = Potassium 3.8 3.5-5.1 Lvl) [employer] [id number] 08:13:00 Test Item Value Reference Range Interpretation Comments Chloride Lvl (test code = Chloride Lvl) 97 95-109 [employer] [id number] 08:13:00 Test Item Value Reference Range Interpretation Comments CO2 (test code = CO2) 28 24-32 [employer] [id number] 08:13:00 Test Item Value Reference Range Interpretation Comments Calcium Lvl (test code = Calcium Lvl) 9.0 8.5-10.5 [employer] [id number] 08:13:00 Test Item Value Reference Range Interpretation Comments AGAP (test code = AGAP) 13.8 10.0-20.0 [employer] [id number] 08:13:00 Test Item Value Reference Range Interpretation Comments eGFR (test code = eGFR) 6 [facility]MOLE[facility]ULAR MADDLGHSVQ4211-17-22 22:34:00 Test Item Value Reference Range Interpretation Comments C difficile DNA (test Negative (07/14/20 5:34 code = C difficile DNA) PM) [facility] AND [id number] 22:34:00 Test Item Value Reference Range Interpretation Comments Fecal Leukocyte (test None Seen (07/14/20 code = Fecal Leukocyte) 5:34 PM) [facility]2020-10-06 08:37:00 Test Item Value Reference Range Interpretation Comments Glucose Lvl (test code = Glucose Lvl) 125 70-99 [facility]2020-10-06 08:37:00 Test Item Value Reference Range Interpretation Comments BUN (test code = BUN) 30 7-22 [facility]2020-10-06 08:37:00 Test Item Value Reference Range Interpretation Comments Creatinine Lvl (test code = Creatinine 9.56 0.50-1.40 Lvl) [facility]2020-10-06 08:37:00 Test Item Value Reference Range Interpretation Comments Sodium Lvl (test code = Sodium Lvl) 136 135-145 [facility]2020-10-06 08:37:00 Test Item Value Reference Range Interpretation Comments Potassium Lvl (test code = Potassium 3.4 3.5-5.1 Lvl) [facility]2020-10-06 08:37:00 Test Item Value Reference Range Interpretation Comments Chloride Lvl (test code = Chloride Lvl) 99 95-109 [facility]2020-10-06 08:37:00 Test Item Value Reference Range Interpretation Comments CO2 (test code = CO2) 28 24-32 [facility]2020-10-06 08:37:00 Test Item Value Reference Range Interpretation Comments Calcium Lvl (test code = Calcium Lvl) 8.6 8.5-10.5 [facility]2020-10-06 08:37:00 Test Item Value Reference Range Interpretation Comments AGAP (test code = AGAP) 12.4 10.0-20.0 [facility] [id number] 08:37:00 Test Item Value Reference Range Interpretation Comments eGFR (test code = eGFR) 5 [facility]2020-10-06 01:30:00 Test Item Value Reference Range Interpretation Comments Color BF (test code = Light Yellow (07/13/20 Color BF) 8:30 PM) [facility]2020-10-06 01:30:00 Test Item Value Reference Range Interpretation Comments Clarity BF (test code = Clear (07/13/20 8:30 Clarity BF) PM) [facility] [id number] 01:30:00 Test Item Value Reference Range Interpretation Comments Supernat BF (test code Colorless (07/13/20 8:30 = Supernat BF) PM) [facility]annB[facility] [id number] 01:30:00 Test Item Value Reference Range Interpretation Comments Nucleated Cells BF (test code = 267 Nucleated Cells BF) [facility] [id number] 01:30:00 Test Item Value Reference Range Interpretation Comments RBC BF (test code = RBC BF) 365 [facility] [id number] 01:30:00 Test Item Value Reference Range Interpretation Comments CellCnt BF Type (test Periton (07/13/20 8:30 code = CellCnt BF Type) PM) [facility] [id number] 01:30:00 Test Item Value Reference Range Interpretation Comments Neutrophils BF (test code = Neutrophils 23 BF) [facility] [id number] 01:30:00 Test Item Value Reference Range Interpretation Comments Lymph BF (test code = Lymph BF) 16 [facility] HospitalannTastyKhana [id number] 01:30:00 Test Item Value Reference Range Interpretation Comments Macrophage BF (test code = Macrophage 53 BF) [facility] [id number] 01:30:00 Test Item Value Reference Range Interpretation Comments Eos BF (test code = Eos BF) 6 [facility] [id number] 01:30:00 Test Item Value Reference Range Interpretation Comments Meso BF (test code = Meso BF) 2 [facility]annG[facility] [id number] 01:30:00 Test Item Value Reference Range Interpretation Comments Gram Stain Report Few WBC's No Organisms (test code = Gram Seen Stain Report) [facility] Aspirate/Body Fluid/[id number] 01:30:00 Test Item Value Reference Range Interpretation Comments Culture: Aspirate/Body Fluid/Tissue No Growth (test code = Culture: Aspirate/Body Fluid/Tissue) [facility] [employer] [id number] 08:35:00 Test Item Value Reference Range Interpretation Comments Glucose Lvl (test code = Glucose Lvl) 113 70-99 [facility] [id number] 08:35:00 Test Item Value Reference Range Interpretation Comments BUN (test code = BUN) 29 7-22 [facility]2020-10-05 08:35:00 Test Item Value Reference Range Interpretation Comments Creatinine Lvl (test code = Creatinine 9.77 0.50-1.40 Lvl) [facility]2020-10-05 08:35:00 Test Item Value Reference Range Interpretation Comments Sodium Lvl (test code = Sodium Lvl) 133 135-145 [place] [id number] 08:35:00 Test Item Value Reference Range Interpretation Comments Potassium Lvl (test code = Potassium 3.4 3.5-5.1 Lvl) [facility] [id number] 08:35:00 Test Item Value Reference Range Interpretation Comments Chloride Lvl (test code = Chloride Lvl) 97 95-109 [facility]2020-10-05 08:35:00 Test Item Value Reference Range Interpretation Comments CO2 (test code = CO2) 31 24-32 [facility]2020-10-05 08:35:00 Test Item Value Reference Range Interpretation Comments Calcium Lvl (test code = Calcium Lvl) 8.8 8.5-10.5 [facility]2020-10-05 08:35:00 Test Item Value Reference Range Interpretation Comments AGAP (test code = AGAP) 8.4 10.0-20.0 [facility]2020-10-05 08:35:00 Test Item Value Reference Range Interpretation Comments eGFR (test code = eGFR) 5 [facility]2020-10-05 00:15:00 Test Item Value Reference Range Interpretation Comments Color BF (test code = Light Yellow (07/12/20 Color BF) 7:15 PM) [facility]2020-10-05 00:15:00 Test Item Value Reference Range Interpretation Comments Clarity BF (test code = Clear (07/12/20 7:15 Clarity BF) PM) [facility]2020-10-05 00:15:00 Test Item Value Reference Range Interpretation Comments Supernat BF (test code Colorless (07/12/20 7:15 = Supernat BF) PM) [facility] [id number] 00:15:00 Test Item Value Reference Range Interpretation Comments Nucleated Cells BF (test code = 227 Nucleated Cells BF) [facility] [id number] 00:15:00 Test Item Value Reference Range Interpretation Comments RBC BF (test code = RBC BF) 247 [facility] [id number] 00:15:00 Test Item Value Reference Range Interpretation Comments Neutrophils BF (test code = Neutrophils 27 BF) [facility] [id number] 00:15:00 Test Item Value Reference Range Interpretation Comments Lymph BF (test code = Lymph BF) 15 [facility] [id number] 00:15:00 Test Item Value Reference Range Interpretation Comments Macrophage BF (test code = Macrophage 52 BF) [facility] [id number] 00:15:00 Test Item Value Reference Range Interpretation Comments Eos BF (test code = Eos BF) 3 [facility] [id number] 00:15:00 Test Item Value Reference Range Interpretation Comments Meso BF (test code = Few (07/12/20 7:15 PM) Meso BF) [facility] [id number] 00:15:00 Test Item Value Reference Range Interpretation Comments Other BF (test code = See Note 4(07/12/20 Other BF) 7:15 PM) [facility] [id number] 00:15:00 Test Item Value Reference Range Interpretation Comments CellCnt BF Type (test Periton (07/12/20 7:15 code = CellCnt BF Type) PM) [facility] [id number] 00:15:00 Test Item Value Reference Range Interpretation Comments Gram Stain Report Rare WBC's No Organisms (test code = Gram Seen Stain Report) [facility] Aspirate/Body Fluid/[id number] 00:15:00 Test Item Value Reference Range Interpretation Comments Culture: Aspirate/Body Fluid/Tissue No Growth (test code = Culture: Aspirate/Body Fluid/Tissue) [facility] HospitalHcrgwbgSHIFCNFXLM8109-77-87 09:50:00 Test Item Value Reference Range Interpretation Comments Segs (test code = Segs) 74.0 45.0-75.0 [facility] HospitalQzczpekODOXWMDWDJ7455-35-91 09:50:00 Test Item Value Reference Range Interpretation Comments Lymphocytes (test code = Lymphocytes) 14.8 20.0-40.0 [facility] HospitalMqwbgadSGFILKEPTQ8190-93-80 09:50:00 Test Item Value Reference Range Interpretation Comments Monocytes (test code = Monocytes) 7.1 2.0-12.0 [facility] [id number] 09:50:00 Test Item Value Reference Range Interpretation Comments Eosinophils (test code = 3.5 See_Comment [A utomated message] The Eosinophils) system which ge nerated this result tra nsmitted reference range : <=4.0. The reference r yared was not used to int erpret this result as normal/abnormal . [facility] TexasQkzxhkhMMABJIPVWS2461-14-02 09:50:00 Test Item Value Reference Range Interpretation Comments Basophils (test code = 0.6 See_Comment [Aut omated message] The Basophils) system which ge nerated this result tra nsmitted reference range : <=1.0. The reference r yared was not used to int erpret this result as normal/abnormal . [facility] TexasSntjfukYKWZHVSBXS2138-22-89 09:50:00 Test Item Value Reference Range Interpretation Comments Neutrophils # (test code = Neutrophils 4.9 1.5-8.1 #) [facility] TexasZqgwbttLHBCWZOKPL0111-03-53 09:50:00 Test Item Value Reference Range Interpretation Comments Lymphocytes # (test code = Lymphocytes 1.0 1.0-5.5 #) [facility] TexasFegjmvwCJVVGQSAWQ6834-30-89 09:50:00 Test Item Value Reference Range Interpretation Comments Monocytes # (test code 0.5 See_Comment [Aut omated message] The = Monocytes #) system which generated this result tra nsmitted reference range : <=0.8. The reference r yared was not used to int erpret this result as normal/abnormal . [facility] TexasCavamgkYNGZLNHETC9717-28-56 09:50:00 Test Item Value Reference Range Interpretation Comments Eosinophils # (test code 0.2 See_Comment [A utomated message] The = Eosinophils #) system whic h generated this result tra nsmitted reference range : <=0.5. The reference r yared was not used to int erpret this result as normal/abnormal . [facility] TexasUcuxlbiSOGVEMUAZI2007-92-04 09:50:00 Test Item Value Reference Range Interpretation Comments WBC (test code = WBC) 6.7 3.7-10.4 [place] [id number] 09:50:00 Test Item Value Reference Range Interpretation Comments RBC (test code = RBC) 2.86 4.70-6.10 [facility]th[facility]NAGQTJDOUD1781-[facility]-10 09:50:00 Test Item Value Reference Range Interpretation Comments Hgb (test code = Hgb) 8.3 14.0-18.0 [facility] HospitalXtyqqfdLARNWSDJBT3965-87-14 09:50:00 Test Item Value Reference Range Interpretation Comments Hct (test code = Hct) 24.4 42.0-54.0 [facility] HospitalTycienzRHPDVBKKSE7788-47-38 09:50:00 Test Item Value Reference Range Interpretation Comments MCV (test code = MCV) 85.1 80.0-94.0 [facility] HospitalUhcevurBJWFYNINQZ9742-05-71 09:50:00 Test Item Value Reference Range Interpretation Comments MCH (test code = MCH) 29.0 pg 27.0-31.0 [facility] HospitalGvbpvsrFRKUQBGVNE8664-38-33 09:50:00 Test Item Value Reference Range Interpretation Comments MCHC (test code = MCHC) 34.1 32.0-36.0 [facility] TexasJvryfpmYODCUPZTRH6575-47-30 09:50:00 Test Item Value Reference Range Interpretation Comments RDW (test code = RDW) 14.1 11.5-14.5 [facility] HospitalXuyliceJVFRRBQSKE9072-65-55 09:50:00 Test Item Value Reference Range Interpretation Comments Platelet (test code = Platelet) 209 133-450 [facility] HospitalPmcjwygOTPRHLNZUQ4966-94-11 09:50:00 Test Item Value Reference Range Interpretation Comments MPV (test code = MPV) 6.6 7.4-10.4 [facility] HospitalBacjbbuXANZROROPV4412-55-91 09:50:00 Test Item Value Reference Range Interpretation Comments Vanco Lvl (test code = Vanco Lvl) 13.1 [facility] [id number] 00:50:00 Test Item Value Reference Range Interpretation Comments Color BF (test code = Light Yellow (07/11/20 Color BF) 7:50 PM) [facility]2020-10-04 00:50:00 Test Item Value Reference Range Interpretation Comments Clarity BF (test code = Slight Cloudy (07/11/20 Clarity BF) 7:50 PM) [facility]2020-10-04 00:50:00 Test Item Value Reference Range Interpretation Comments Supernat BF (test code Colorless (07/11/20 7:50 = Supernat BF) PM) [facility]2020-10-04 00:50:00 Test Item Value Reference Range Interpretation Comments Nucleated Cells BF (test code = 474 Nucleated Cells BF) [facility]2020-10-04 00:50:00 Test Item Value Reference Range Interpretation Comments RBC BF (test code = RBC BF) 79 [facility]2020-10-04 00:50:00 Test Item Value Reference Range Interpretation Comments Neutrophils BF (test code = Neutrophils 53 BF) [facility]2020-10-04 00:50:00 Test Item Value Reference Range Interpretation Comments Lymph BF (test code = Lymph BF) 10 [facility]2020-10-04 00:50:00 Test Item Value Reference Range Interpretation Comments Macrophage BF (test code = Macrophage 33 BF) [facility]2020-10-04 00:50:00 Test Item Value Reference Range Interpretation Comments Eos BF (test code = Eos BF) 3 [facility]2020-10-04 00:50:00 Test Item Value Reference Range Interpretation Comments Meso BF (test code = Meso BF) 1 [facility]2020-10-04 00:50:00 Test Item Value Reference Range Interpretation Comments CellCnt BF Type (test Periton (07/11/20 7:50 code = CellCnt BF Type) PM) [facility] TexasOrarrvfASQFKURJRH0736-55-92 08:20:00 Test Item Value Reference Range Interpretation Comments WBC (test code = WBC) 6.2 3.7-10.4 [facility] TexasAuzwkpkBUFYKZZVEK4287-39-32 08:20:00 Test Item Value Reference Range Interpretation Comments RBC (test code = RBC) 2.74 4.70-6.10 [facility] TexasZrvivuxWMGYKEIDFK9975-03-89 08:20:00 Test Item Value Reference Range Interpretation Comments Hgb (test code = Hgb) 8.0 14.0-18.0 [facility] TexasWreductHFTUUJZGTV6070-57-96 08:20:00 Test Item Value Reference Range Interpretation Comments Hct (test code = Hct) 23.1 42.0-54.0 [facility] TexasAuncgncBCOERSIKNY2831-74-52 08:20:00 Test Item Value Reference Range Interpretation Comments MCV (test code = MCV) 84.4 80.0-94.0 [facility] TexasVdnmfejIYOGJBMZUH7598-01-60 08:20:00 Test Item Value Reference Range Interpretation Comments MCH (test code = MCH) 29.2 pg 27.0-31.0 [facility] TexasTgeouoxHSHWLNLIRR5949-21-32 08:20:00 Test Item Value Reference Range Interpretation Comments MCHC (test code = MCHC) 34.7 32.0-36.0 [facility] TexasChxaofgBXRIVYWFCQ6838-26-18 08:20:00 Test Item Value Reference Range Interpretation Comments RDW (test code = RDW) 13.9 11.5-14.5 [facility] TexasRuzvdsmBFPHHFTNHO4075-40-92 08:20:00 Test Item Value Reference Range Interpretation Comments Platelet (test code = Platelet) 199 133-450 [facility] TexasNxpfhvpKVDUHOSDSW4050-05-08 08:20:00 Test Item Value Reference Range Interpretation Comments MPV (test code = MPV) 6.8 7.4-10.4 [facility] TexasFdiwcrlLFNPPWHVBJ4424-91-00 08:20:00 Test Item Value Reference Range Interpretation Comments Segs (test code = Segs) 74.0 45.0-75.0 [facility] TexasOhaocfbSCFFGKTFAQ8109-61-31 08:20:00 Test Item Value Reference Range Interpretation Comments Lymphocytes (test code = Lymphocytes) 13.2 20.0-40.0 [facility] TexasXxohjzzUSWHGKMHQA2533-90-02 08:20:00 Test Item Value Reference Range Interpretation Comments Monocytes (test code = Monocytes) 9.1 2.0-12.0 [facility] TexasAlwbuyyJYFONQIBFS4759-40-59 08:20:00 Test Item Value Reference Range Interpretation Comments Eosinophils (test code = 3.2 See_Comment [A utomated message] The Eosinophils) system which ge nerated this result tra nsmitted reference range : <=4.0. The reference r yared was not used to int erpret this result as normal/abnormal . [facility] TexasOqnnfdpHJTRQEEUQV4462-37-03 08:20:00 Test Item Value Reference Range Interpretation Comments Basophils (test code = 0.5 See_Comment [Aut omated message] The Basophils) system which ge nerated this result tra nsmitted reference range : <=1.0. The reference r yared was not used to int erpret this result as normal/abnormal . [facility] TexasXncuctuQSTXAPFYUT2315-72-35 08:20:00 Test Item Value Reference Range Interpretation Comments Neutrophils # (test code = Neutrophils 4.6 1.5-8.1 #) [facility] TexasTaanjdnGIFFXXGHRA6414-64-81 08:20:00 Test Item Value Reference Range Interpretation Comments Lymphocytes # (test code = Lymphocytes 0.8 1.0-5.5 #) [facility] TexasKjidtroFFKKTNUWGU4275-38-19 08:20:00 Test Item Value Reference Range Interpretation Comments Monocytes # (test code 0.6 See_Comment [Aut omated message] The = Monocytes #) system which generated this result tra nsmitted reference range : <=0.8. The reference r yared was not used to int erpret this result as normal/abnormal . [facility] TexasVmzpjshAFSIFCDQDY9799-69-03 08:20:00 Test Item Value Reference Range Interpretation Comments Eosinophils # (test code 0.2 See_Comment [A utomated message] The = Eosinophils #) system whic h generated this result tra nsmitted reference range : <=0.5. The reference r yared was not used to int erpret this result as normal/abnormal . [facility] TexasTjrwjtaHJSVXUZLQI2605-02-81 14:52:00 Test Item Value Reference Range Interpretation Comments WBC (test code = WBC) 6.6 3.7-10.4 [facility] TexasKtgkzpxSASRDYVVUJ3418-09-62 14:52:00 Test Item Value Reference Range Interpretation Comments RBC (test code = RBC) 2.76 4.70-6.10 [facility] TexasTwcpyudXSESTQNZJA5084-94-28 14:52:00 Test Item Value Reference Range Interpretation Comments Hgb (test code = Hgb) 8.1 14.0-18.0 [place] 942770-10-02 14:52:00 Test Item Value Reference Range Interpretation Comments Hct (test code = Hct) 23.3 42.0-54.0 [place] [address]-10-02 14:52:00 Test Item Value Reference Range Interpretation Comments MCV (test code = MCV) 84.2 80.0-94.0 [place] [address]-10-02 14:52:00 Test Item Value Reference Range Interpretation Comments MCH (test code = MCH) 29.3 pg 27.0-31.0 [place] 942770-10-02 14:52:00 Test Item Value Reference Range Interpretation Comments MCHC (test code = MCHC) 34.8 32.0-36.0 [facility] TexasWugwsjuRNOKVDKKKQ1492-55-56 14:52:00 Test Item Value Reference Range Interpretation Comments RDW (test code = RDW) 13.7 11.5-14.5 [place] [address]-10-02 14:52:00 Test Item Value Reference Range Interpretation Comments Platelet (test code = Platelet) 203 133-450 [facility] TexasLwojjhmJIHTSZPDNI2779-86-60 14:52:00 Test Item Value Reference Range Interpretation Comments MPV (test code = MPV) 6.6 7.4-10.4 [place] [address]-10-02 14:52:00 Test Item Value Reference Range Interpretation Comments RBC Morph (test code = Normal (07/10/20 9:52 RBC Morph) AM) [place] 942770-10-02 14:52:00 Test Item Value Reference Range Interpretation Comments Plt Morph (test code = Normal (07/10/20 9:52 Plt Morph) AM) [facility] TexasXdzvvbtWPJHYZQRBZ9186-42-94 14:52:00 Test Item Value Reference Range Interpretation Comments Segs (test code = Segs) 76.0 45.0-75.0 [place] 942770-10-02 14:52:00 Test Item Value Reference Range Interpretation Comments Lymphocytes (test code = Lymphocytes) 11.5 20.0-40.0 [place] [address]-10-02 14:52:00 Test Item Value Reference Range Interpretation Comments Monocytes (test code = Monocytes) 8.9 2.0-12.0 [place] [address]-10-02 14:52:00 Test Item Value Reference Range Interpretation Comments Eosinophils (test code = 3.1 See_Comment [A utomated message] The Eosinophils) system which ge nerated this result tra nsmitted reference range : <=4.0. The reference r yared was not used to int erpret this result as normal/abnormal . [place] 942770-10-02 14:52:00 Test Item Value Reference Range Interpretation Comments Basophils (test code = 0.5 See_Comment [Aut omated message] The Basophils) system which ge nerated this result tra nsmitted reference range : <=1.0. The reference r yared was not used to int erpret this result as normal/abnormal . [place] 942770-10-02 14:52:00 Test Item Value Reference Range Interpretation Comments Neutrophils # (test code = Neutrophils 5.1 1.5-8.1 #) [place] [address]-10-02 14:52:00 Test Item Value Reference Range Interpretation Comments Lymphocytes # (test code = Lymphocytes 0.8 1.0-5.5 #) [place] [address]-10-02 14:52:00 Test Item Value Reference Range Interpretation Comments Monocytes # (test code 0.6 See_Comment [Aut omated message] The = Monocytes #) system which generated this result tra nsmitted reference range : <=0.8. The reference r yared was not used to int erpret this result as normal/abnormal . [place] [address]-10-02 14:52:00 Test Item Value Reference Range Interpretation Comments Eosinophils # (test code 0.2 See_Comment [A utomated message] The = Eosinophils #) system whic h generated this result tra nsmitted reference range : <=0.5. The reference r yared was not used to int erpret this result as normal/abnormal . [place] 937090-10-01 14:49:00 Test Item Value Reference Range Interpretation Comments Total Protein (test code = Total 5.2 6.4-8.4 Protein) [place] [address]-10-01 14:49:00 Test Item Value Reference Range Interpretation Comments Albumin Lvl (test code = Albumin Lvl) 1.5 3.5-5.0 [place] 937090-10-01 14:49:00 Test Item Value Reference Range Interpretation Comments ALT (test code = ALT) 13 See_Comment [Auto mated message] The system which ge nerated this result transmit emerson reference range : <=65. The reference range was not used to interpr et this result as erinn l/abnormal. [place] [address]-10-01 14:49:00 Test Item Value Reference Range Interpretation Comments AST (test code = AST) 11 See_Comment [Auto mated message] The system which ge nerated this result transmit emerson reference range : <=37. The reference range was not used to interpr et this result as erinn l/abnormal. [facility] [id number] 14:49:00 Test Item Value Reference Range Interpretation Comments Alk Phos (test code = Alk Phos) 75 39-136 [facility]ann[facility] [id number] 14:49:00 Test Item Value Reference Range Interpretation Comments Bili Total (test code = Bili Total) 0.4 0.2-1.3 [facility] [id number] 14:49:00 Test Item Value Reference Range Interpretation Comments B/C Ratio (test code = B/C Ratio) 4 1 6-25 [facility]annCHEM [id number] 14:49:00 Test Item Value Reference Range Interpretation Comments Globulin (test code = Globulin) 3.7 2.7-4.2 [facility] [id number] 14:49:00 Test Item Value Reference Range Interpretation Comments A/G Ratio (test code = A/G Ratio) 0.4 1 0.7-1.6 [facility] [id number] 14:49:00 Test Item Value Reference Range Interpretation Comments Phosphorus (test code = Phosphorus) 4.1 2.5-4.5 [facility] HospitalSksnvxoABDZFJLNNW2105-66-51 09:57:00 Test Item Value Reference Range Interpretation Comments Vanco Lvl (test code = Vanco Lvl) 15.9 [facility] HospitalXutblmlJHZJQONGWX1389-77-20 18:59:00 Test Item Value Reference Range Interpretation Comments Vanco Lvl (test code = Vanco Lvl) 15.4 [facility]annGram Stain Pqehol2612-96-13 15:00:00 Test Item Value Reference Range Interpretation Comments Gram Stain Report No Organisms Seen Few (test code = Gram WBC's Stain Report) [facility]ann[facility]: Aspirate/Body Fluid/Fahywc0044-94-50 15:00:00 Test Item Value Reference Range Interpretation Comments Culture: Aspirate/Body Fluid/Tissue No Growth (test code = Culture: Aspirate/Body Fluid/Tissue) [facility]annG[facility] Stain Flldmb7946-96-46 15:00:00 Test Item Value Reference Range Interpretation Comments Gram Stain Report Many WBC's No Organisms (test code = Gram Seen Stain Report) [facility] Aspirate/Body Fluid/Wvqsbf8252-95-41 15:00:00 Test Item Value Reference Range Interpretation Comments Culture: Aspirate/Body Fluid/Tissue No Growth (test code = Culture: Aspirate/Body Fluid/Tissue) [facility] HospitalEl TeatroGram Stain Tfibtm9522-26-79 13:30:00 Test Item Value Reference Range Interpretation Comments Gram Stain Report No Organisms Seen Many (test code = Gram WBC's Stain Report) [facility] Hospital[facility]: Aspirate/Body Fluid/Gbrwcj6878-51-47 13:30:00 Test Item Value Reference Range Interpretation Comments Culture: Aspirate/Body Fluid/Tissue No Growth (test code = Culture: Aspirate/Body Fluid/Tissue) [facility]mGenerator [id number] 11:40:00 Test Item Value Reference Range Interpretation Comments ABO/Rh (test code = ABO/Rh) O POS [employer] [employer] [id number] 11:40:00 Test Item Value Reference Range Interpretation Comments Antibody Scrn (test Negative (07/06/20 6:40 code = Antibody Scrn) AM) [facility] HospitalEl TeatroCARDIAC [id number] 11:07:00 Test Item Value Reference Range Interpretation Comments Troponin-I (test code no gt See_Comment [Auto mated message] The = Troponin-I) system which g enerated this result transmit emerson reference range : <=0.40. The reference r yared was not used to interpr et this result as erinn l/abnormal. [employer] [id number] 11:07:00 Test Item Value Reference Range Interpretation Comments Magnesium Lvl (test code = Magnesium 1.8 1.8-2.4 Lvl) [employer] [id number] 11:07:00 Test Item Value Reference Range Interpretation Comments Phosphorus (test code = Phosphorus) 5.3 2.5-4.5 [employer] [id number] 11:07:00 Test Item Value Reference Range Interpretation Comments Lipase Lvl (test code = Lipase Lvl) 48 73-393 [employer] [id number] 11:07:00 Test Item Value Reference Range Interpretation Comments Total Protein (test code = Total 5.3 6.4-8.4 Protein) [employer] [id number] 11:07:00 Test Item Value Reference Range Interpretation Comments Albumin Lvl (test code = Albumin Lvl) 1.6 3.5-5.0 [place] [id number] 11:07:00 Test Item Value Reference Range Interpretation Comments Globulin (test code = Globulin) 3.7 2.7-4.2 [place] [id number] 11:07:00 Test Item Value Reference Range Interpretation Comments A/G Ratio (test code = A/G Ratio) 0.4 1 0.7-1.6 [place] [id number] 11:07:00 Test Item Value Reference Range Interpretation Comments ALT (test code = ALT) 12 See_Comment [Auto mated message] The system which ge nerated this result transmit emerson reference range : <=65. The reference range was not used to interpr et this result as erinn l/abnormal. [facility] HospitalHealthy [employer] [id number] 11:07:00 Test Item Value Reference Range Interpretation Comments AST (test code = AST) 13 See_Comment [Auto mated message] The system which ge nerated this result transmit emerson reference range : <=37. The reference range was not used to interpr et this result as erinn l/abnormal. [facility] [id number] 11:07:00 Test Item Value Reference Range Interpretation Comments Alk Phos (test code = Alk Phos) 67 39-136 [facility]2020-09-28 11:07:00 Test Item Value Reference Range Interpretation Comments Bili Total (test code = Bili Total) 0.6 0.2-1.3 [place] [id number] 11:07:00 Test Item Value Reference Range Interpretation Comments Bili Direct (test code no gt See_Comment [Aut omated message] The = Bili Direct) system which generated this result tra nsmitted reference range : <=0.3. The reference r yared was not used to int erpret this result as erinn l/abnormal. [facility] [id number] 11:07:00 Test Item Value Reference Range Interpretation Comments Bili Indirect Unable to See_Comment [Automated (test code = Bili Calculate message] T he system Indirect) which generated this result transmitted reference range : <=1.0. The reference range was not used to interpret this result as normal/abnormal . [facility] [id number] 11:07:00 Test Item Value Reference Range Interpretation Comments Lactic Acid Lvl (test code = Lactic 0.6 0.5-2.2 Acid Lvl) [place] [id number] 11:07:00 Test Item Value Reference Range Interpretation Comments PTT (test code = PTT) 40.6 s 22.9-35.8 [place] [id number] 11:07:00 Test Item Value Reference Range Interpretation Comments PT (test code = PT) 14.0 s 12.0-14.7 [place] [id number] 11:07:00 Test Item Value Reference Range Interpretation Comments INR (test code = INR) 1.08 1 0.85-1.17 [place] [id number] 13:56:00 Test Item Value Reference Range Interpretation Comments Glucose Lvl (test code = Glucose Lvl) 97 70-99 [place] [id number] 13:56:00 Test Item Value Reference Range Interpretation Comments BUN (test code = BUN) 41 7-22 [place] [id number] 13:56:00 Test Item Value Reference Range Interpretation Comments Creatinine Lvl (test code = Creatinine 10.50 0.50-1.40 Lvl) [place] [id number] 13:56:00 Test Item Value Reference Range Interpretation Comments Sodium Lvl (test code = Sodium Lvl) 133 135-145 [place] 937090-08-13 13:56:00 Test Item Value Reference Range Interpretation Comments Potassium Lvl (test code = Potassium 3.2 3.5-5.1 Lvl) [place] 937090-08-13 13:56:00 Test Item Value Reference Range Interpretation Comments Chloride Lvl (test code = Chloride Lvl) 94 95-109 [place] 937090-08-13 13:56:00 Test Item Value Reference Range Interpretation Comments CO2 (test code = CO2) 28 24-32 [place] 937090-08-13 13:56:00 Test Item Value Reference Range Interpretation Comments Calcium Lvl (test code = Calcium Lvl) 9.5 8.5-10.5 [place] 937090-08-13 13:56:00 Test Item Value Reference Range Interpretation Comments AGAP (test code = AGAP) 14.2 10.0-20.0 [place] [address]-08-13 13:56:00 Test Item Value Reference Range Interpretation Comments eGFR (test code = eGFR) 5 [place] [id number] 13:56:00 Test Item Value Reference Range Interpretation Comments Total Protein (test code = Total 5.4 6.4-8.4 Protein) [place] [address]-08-13 13:56:00 Test Item Value Reference Range Interpretation Comments Albumin Lvl (test code = Albumin Lvl) 2.3 3.5-5.0 [place] [address]-08-13 13:56:00 Test Item Value Reference Range Interpretation Comments ALT (test code = ALT) 16 See_Comment [Auto mated message] The system which ge nerated this result transmit emerson reference range : <=65. The reference range was not used to interpr et this result as erinn l/abnormal. [place] [address]-08-13 13:56:00 Test Item Value Reference Range Interpretation Comments AST (test code = AST) 26 See_Comment [Auto mated message] The system which ge nerated this result transmit emerson reference range : <=37. The reference range was not used to interpr et this result as erinn l/abnormal. [place] 937090-08-13 13:56:00 Test Item Value Reference Range Interpretation Comments Alk Phos (test code = Alk Phos) 82 39-136 [place] [address]-08-13 13:56:00 Test Item Value Reference Range Interpretation Comments Bili Total (test code = Bili Total) 0.4 0.2-1.3 [place] [address]-08-13 13:56:00 Test Item Value Reference Range Interpretation Comments Bili Direct (test code 0.1 See_Comment [Aut omated message] The = Bili Direct) system which generated this result tra nsmitted reference range : <=0.3. The reference r yared was not used to int erpret this result as erinn l/abnormal. [facility] [employer] [id number] 13:56:00 Test Item Value Reference Range Interpretation Comments Bili Indirect (test 0.3 See_Comment [Automa emerson message] The code = Bili Indirect) system which generated this result tra nsmitted reference range : <=1.0. The reference r yared was not used to int erpret this result as normal/abnormal . [facility]2020-08-13 13:56:00 Test Item Value Reference Range Interpretation Comments Globulin (test code = Globulin) 3.1 2.7-4.2 [facility]2020-08-13 13:56:00 Test Item Value Reference Range Interpretation Comments A/G Ratio (test code = A/G Ratio) 0.7 1 0.7-1.6 [place] [address]-08-13 13:56:00 Test Item Value Reference Range Interpretation Comments Lipase Lvl (test code = Lipase Lvl) 41 73-393 [facility] TexasHsucnvnXITEHLTLWX2965-05-00 13:56:00 Test Item Value Reference Range Interpretation Comments WBC (test code = WBC) 5.3 3.7-10.4 [facility] TexasZbcctiuQCYMSKAMUR6526-88-08 13:56:00 Test Item Value Reference Range Interpretation Comments RBC (test code = RBC) 2.56 4.70-6.10 [facility] TexasFbnvxzuVQSTQRPQRI4052-63-05 13:56:00 Test Item Value Reference Range Interpretation Comments Hgb (test code = Hgb) 7.6 14.0-18.0 [facility] TexasYnnopjtQMHCWFCVLR3278-07-48 13:56:00 Test Item Value Reference Range Interpretation Comments Hct (test code = Hct) 21.8 42.0-54.0 [facility] TexasQtwtdgmERXCVPLFEO3726-63-41 13:56:00 Test Item Value Reference Range Interpretation Comments MCV (test code = MCV) 85.2 80.0-94.0 [place] 942770-08-13 13:56:00 Test Item Value Reference Range Interpretation Comments MCH (test code = MCH) 29.6 pg 27.0-31.0 [place] [address]-08-13 13:56:00 Test Item Value Reference Range Interpretation Comments MCHC (test code = MCHC) 34.8 32.0-36.0 [place] [address]-08-13 13:56:00 Test Item Value Reference Range Interpretation Comments RDW (test code = RDW) 13.9 11.5-14.5 [place] 942770-08-13 13:56:00 Test Item Value Reference Range Interpretation Comments Platelet (test code = Platelet) 170 133-450 [facility] TexasKvzaolgIEQJFKROSA5652-35-10 13:56:00 Test Item Value Reference Range Interpretation Comments MPV (test code = MPV) 7.1 7.4-10.4 [place] 942770-08-13 13:56:00 Test Item Value Reference Range Interpretation Comments Segs (test code = Segs) 67.4 45.0-75.0 [facility] TexasTcjrjpbNCZHECDKID8284-96-26 13:56:00 Test Item Value Reference Range Interpretation Comments Lymphocytes (test code = Lymphocytes) 15.2 20.0-40.0 [place] 942770-08-13 13:56:00 Test Item Value Reference Range Interpretation Comments Monocytes (test code = Monocytes) 8.6 2.0-12.0 [facility] TexasHrkwkybMMGJUEDNHS5144-24-68 13:56:00 Test Item Value Reference Range Interpretation Comments Eosinophils (test code = 7.8 See_Comment [A utomated message] The Eosinophils) system which ge nerated this result tra nsmitted reference range : <=4.0. The reference r yared was not used to int erpret this result as normal/abnormal . [facility] TexasThpudlgPCBNAYJNSB2820-87-67 13:56:00 Test Item Value Reference Range Interpretation Comments Basophils (test code = 1.0 See_Comment [Aut omated message] The Basophils) system which ge nerated this result tra nsmitted reference range : <=1.0. The reference r yared was not used to int erpret this result as normal/abnormal . [facility] TexasMemazmhYOVJBGYDJD4388-47-47 13:56:00 Test Item Value Reference Range Interpretation Comments Neutrophils # (test code = Neutrophils 3.6 1.5-8.1 #) [facility] TexasNawxpmmCABUAGPCAD9016-17-15 13:56:00 Test Item Value Reference Range Interpretation Comments Lymphocytes # (test code = Lymphocytes 0.8 1.0-5.5 #) [facility] TexasSgzbruvGIIOSDENSL7179-31-20 13:56:00 Test Item Value Reference Range Interpretation Comments Monocytes # (test code 0.5 See_Comment [Aut omated message] The = Monocytes #) system which generated this result tra nsmitted reference range : <=0.8. The reference r yared was not used to int erpret this result as normal/abnormal . [place] ZfczyxzHZKNDCKELM7213-97-71 13:56:00 Test Item Value Reference Range Interpretation Comments Eosinophils # (test code 0.4 See_Comment [A utomated message] The = Eosinophils #) system whic h generated this result tra nsmitted reference range : <=0.5. The reference r yared was not used to int erpret this result as normal/abnormal . [place] KvvmgayJRXUPBUWZT6043-26-09 13:56:00 Test Item Value Reference Range Interpretation Comments Basophils # (test code 0.1 See_Comment [Aut omated message] The = Basophils #) system which generated this result tra nsmitted reference range : <=0.2. The reference r yared was not used to int erpret this result as normal/abnormal . YES.TAP [id number] 06:28:00 Test Item Value Reference Range Interpretation Comments ABO/Rh (test code = ABO/Rh) O POS [place] [employer] [id number] 06:28:00 Test Item Value Reference Range Interpretation Comments Antibody Scrn (test Negative (03/23/20 1:28 code = Antibody Scrn) AM) [place] [employer] [id number] 06:23:00 Test Item Value Reference Range Interpretation Comments RBC product (test code Product available = RBC product) 2(03/23/20 1:23 AM) [place] [employer]2020-06-15 06:08:00 Test Item Value Reference Range Interpretation Comments RBC BF (test code = RBC BF) 532471 [place] [employer]2020-06-15 06:08:00 Test Item Value Reference Range Interpretation Comments Nucleated Cells BF (test code = 1316 Nucleated Cells BF) [place] [employer]2020-06-15 06:08:00 Test Item Value Reference Range Interpretation Comments Neutrophils BF (test code = Neutrophils 37 BF) [place] [employer]2020-06-15 06:08:00 Test Item Value Reference Range Interpretation Comments Lymph BF (test code = Lymph BF) 4 [place] [employer]2020-06-15 06:08:00 Test Item Value Reference Range Interpretation Comments Macrophage BF (test code = Macrophage 54 BF) [place] [employer]2020-06-15 06:08:00 Test Item Value Reference Range Interpretation Comments Eos BF (test code = Eos BF) 3 [facility] HospitalTastyKhana [id number] 06:08:00 Test Item Value Reference Range Interpretation Comments Meso BF (test code = Meso BF) 2 [facility]2020-06-15 06:08:00 Test Item Value Reference Range Interpretation Comments Clarity BF (test code = Bloody *ABN*(03/23/20 Clarity BF) 1:08 AM) [facility]2020-06-15 06:08:00 Test Item Value Reference Range Interpretation Comments Color BF (test code = Red *ABN*(03/23/20 1:08 Color BF) AM) [facility]El TeatroCENTRAL [id number] 06:08:00 Test Item Value Reference Range Interpretation Comments Supernat BF (test code = Yellow *ABN*(03/23/20 Supernat BF) 1:08 AM) [facility] TeatroCENTRAL HOSPITALTYPJCA2873-98-15 06:08:00 Test Item Value Reference Range Interpretation Comments CellCnt BF Type (test Periton (03/23/20 1:08 code = CellCnt BF Type) AM) [place] [employer] [id number] 06:08:00 Test Item Value Reference Range Interpretation Comments Glucose Lvl (test code = Glucose Lvl) 98 70-99 [place] [employer] [id number] 06:08:00 Test Item Value Reference Range Interpretation Comments BUN (test code = BUN) 81 7-22 [facility] [id number] 06:08:00 Test Item Value Reference Range Interpretation Comments Creatinine Lvl (test code = Creatinine 14.40 0.50-1.40 Lvl) [facility] [id number] 06:08:00 Test Item Value Reference Range Interpretation Comments Sodium Lvl (test code = Sodium Lvl) 129 135-145 [place] [employer] [id number] 06:08:00 Test Item Value Reference Range Interpretation Comments Potassium Lvl (test code = Potassium 4.8 3.5-5.1 Lvl) [facility] [id number] 06:08:00 Test Item Value Reference Range Interpretation Comments Chloride Lvl (test code = Chloride Lvl) 90 95-109 [place] [employer] [id number] 06:08:00 Test Item Value Reference Range Interpretation Comments CO2 (test code = CO2) 27 24-32 [facility] [id number] 06:08:00 Test Item Value Reference Range Interpretation Comments Calcium Lvl (test code = Calcium Lvl) 8.7 8.5-10.5 [facility] [id number] 06:08:00 Test Item Value Reference Range Interpretation Comments Total Protein (test code = Total 5.7 6.4-8.4 Protein) [facility] [id number] 06:08:00 Test Item Value Reference Range Interpretation Comments Albumin Lvl (test code = Albumin Lvl) 2.5 3.5-5.0 [place] [employer] [id number] 06:08:00 Test Item Value Reference Range Interpretation Comments ALT (test code = ALT) 32 See_Comment [Auto mated message] The system which ge nerated this result transmit emerson reference range : <=65. The reference range was not used to interpr et this result as erinn l/abnormal. [place] [employer] [id number] 06:08:00 Test Item Value Reference Range Interpretation Comments AST (test code = AST) 36 See_Comment [Auto mated message] The system which ge nerated this result transmit emerson reference range : <=37. The reference range was not used to interpr et this result as erinn l/abnormal. [place] [employer] [id number] 06:08:00 Test Item Value Reference Range Interpretation Comments Alk Phos (test code = Alk Phos) 110 39-136 [place] [employer] [id number] 06:08:00 Test Item Value Reference Range Interpretation Comments Bili Total (test code = Bili Total) 0.5 0.2-1.3 [place] [employer] [id number] 06:08:00 Test Item Value Reference Range Interpretation Comments AGAP (test code = AGAP) 16.8 10.0-20.0 [place] [employer] [id number] 06:08:00 Test Item Value Reference Range Interpretation Comments B/C Ratio (test code = B/C Ratio) 6 1 6-25 [place] [employer] [id number] 06:08:00 Test Item Value Reference Range Interpretation Comments Globulin (test code = Globulin) 3.2 2.7-4.2 [place] [employer] [id number] 06:08:00 Test Item Value Reference Range Interpretation Comments A/G Ratio (test code = A/G Ratio) 0.8 1 0.7-1.6 [facility]2020-06-15 06:08:00 Test Item Value Reference Range Interpretation Comments eGFR (test code = eGFR) 3 [facility] [id number] 06:08:00 Test Item Value Reference Range Interpretation Comments Lactic Acid Lvl (test code = Lactic 0.6 0.5-2.2 Acid Lvl) [facility] TexasZdikbvcNIOTIGMKWB1844-92-88 06:08:00 Test Item Value Reference Range Interpretation Comments WBC (test code = WBC) 11.5 3.7-10.4 [facility] TexasIkhvtslJBJJXJBNAU2420-30-42 06:08:00 Test Item Value Reference Range Interpretation Comments RBC (test code = RBC) 2.12 4.70-6.10 [facility] TexasIfoxahdIJPEWDOKZP5181-28-25 06:08:00 Test Item Value Reference Range Interpretation Comments Hgb (test code = Hgb) 6.1 14.0-18.0 [facility] TexasQxrhwnwCWHUFVXZWR6376-34-78 06:08:00 Test Item Value Reference Range Interpretation Comments Hct (test code = Hct) 18.4 42.0-54.0 [facility] TexasTzpgwdpTSKMLLALXQ9045-44-84 06:08:00 Test Item Value Reference Range Interpretation Comments MCV (test code = MCV) 86.5 80.0-94.0 [facility] TexasTscmcjmUAYOGBZHAE6550-42-47 06:08:00 Test Item Value Reference Range Interpretation Comments MCH (test code = MCH) 28.6 pg 27.0-31.0 [facility] TexasBcryazpBCFUSLPXKX2446-94-52 06:08:00 Test Item Value Reference Range Interpretation Comments MCHC (test code = MCHC) 33.1 32.0-36.0 [facility] TexasQyxjqmxWWZBIPSVND5140-56-90 06:08:00 Test Item Value Reference Range Interpretation Comments RDW (test code = RDW) 15.9 11.5-14.5 [facility] TexasVmwsauzYFBMZRNWSY7848-17-13 06:08:00 Test Item Value Reference Range Interpretation Comments Platelet (test code = Platelet) 316 133-450 [facility] TexasTqvltbfHXBBISYKNZ0505-54-28 06:08:00 Test Item Value Reference Range Interpretation Comments MPV (test code = MPV) 6.8 7.4-10.4 [facility] TexasOizrxxzXBJTFPXKRU6904-80-63 06:08:00 Test Item Value Reference Range Interpretation Comments PT (test code = PT) 13.9 s 12.0-14.7 [facility] TexasGdnsfziVZKTYQJLPC2885-97-36 06:08:00 Test Item Value Reference Range Interpretation Comments INR (test code = INR) 1.07 1 0.85-1.17 [facility] TexasHpguvhuGAQYQRQWHT5145-17-23 06:08:00 Test Item Value Reference Range Interpretation Comments RBC Morph (test code = Normal (03/23/20 1:08 RBC Morph) AM) [facility] TexasOnmyxjmLSLIFGUEWV9243-56-70 06:08:00 Test Item Value Reference Range Interpretation Comments Plt Morph (test code = Normal (03/23/20 1:08 Plt Morph) AM) [facility] TexasWppxwohRQNNYSAXBG9637-47-29 06:08:00 Test Item Value Reference Range Interpretation Comments Segs (test code = Segs) 80.9 45.0-75.0 [facility] TexasIrwmpiePMEZILLRFS4694-04-52 06:08:00 Test Item Value Reference Range Interpretation Comments Lymphocytes (test code = Lymphocytes) 9.1 20.0-40.0 [facility] TexasWtwfkdwLAKHHJEBXE9580-23-84 06:08:00 Test Item Value Reference Range Interpretation Comments Monocytes (test code = Monocytes) 7.3 2.0-12.0 [facility] TexasTsckwzkBXBTGMHXZC1361-45-47 06:08:00 Test Item Value Reference Range Interpretation Comments Eosinophils (test code = 2.0 See_Comment [A utomated message] The Eosinophils) system which ge nerated this result tra nsmitted reference range : <=4.0. The reference r yared was not used to int erpret this result as normal/abnormal . [facility] Tex[id number] 06:08:00 Test Item Value Reference Range Interpretation Comments Basophils (test code = 0.7 See_Comment [Aut omated message] The Basophils) system which ge nerated this result tra nsmitted reference range : <=1.0. The reference r yared was not used to int erpret this result as normal/abnormal . [facility] TexasUigbvriQPCREFRSRN2302-94-93 06:08:00 Test Item Value Reference Range Interpretation Comments Neutrophils # (test code = Neutrophils 9.3 1.5-8.1 #) [facility] TexasEaxalcjOUKMHFYQCE8492-25-17 06:08:00 Test Item Value Reference Range Interpretation Comments Lymphocytes # (test code = Lymphocytes 1.0 1.0-5.5 #) [facility] TexasOjvfhlcOCYDAQUXMT5569-81-52 06:08:00 Test Item Value Reference Range Interpretation Comments Monocytes # (test code 0.8 See_Comment [Aut omated message] The = Monocytes #) system which generated this result tra nsmitted reference range : <=0.8. The reference r yared was not used to int erpret this result as normal/abnormal . [facility] TexasRdpzzpnLMNZYENKFG2943-69-41 06:08:00 Test Item Value Reference Range Interpretation Comments Eosinophils # (test code 0.2 See_Comment [A utomated message] The = Eosinophils #) system whic h generated this result tra nsmitted reference range : <=0.5. The reference r yared was not used to int erpret this result as normal/abnormal . [facility] TexasTxlfmpmXBRSJUZLSV5710-42-89 06:08:00 Test Item Value Reference Range Interpretation Comments Basophils # (test code 0.1 See_Comment [Aut omated message] The = Basophils #) system which generated this result tra nsmitted reference range : <=0.2. The reference r yared was not used to int erpret this result as normal/abnormal . [facility] TexasDbgvywdZYDEPISFHT7609-93-46 06:08:00 Test Item Value Reference Range Interpretation Comments Anisocyte (test code = 2+ *ABN*(03/23/20 Anisocyte) 1:08 AM) [facility] TexasAllyyvqCIFMSGZNKN8998-34-33 06:08:00 Test Item Value Reference Range Interpretation Comments Macrocyte (test code = 1+ *ABN*(03/23/20 Macrocyte) 1:08 AM) [facility] TexasIdrkgquKCGSPIKCJH4224-53-45 06:08:00 Test Item Value Reference Range Interpretation Comments Microcyte (test code = 1+ *ABN*(03/23/20 Microcyte) 1:08 AM) [place] 942770-06-15 06:08:00 Test Item Value Reference Range Interpretation Comments Spherocyte (test code = Rare *ABN*(03/23/20 Spherocyte) 1:08 AM) [facility]2020-04-27 21:27:00 Test Item Value Reference Range Interpretation Comments Glucose Lvl (test code = Glucose Lvl) 85 70-99 [place] 937090-04-27 21:27:00 Test Item Value Reference Range Interpretation Comments BUN (test code = BUN) 58 7-22 [place] 937090-04-27 21:27:00 Test Item Value Reference Range Interpretation Comments Creatinine Lvl (test code = Creatinine 12.00 0.50-1.40 Lvl) [place] 937090-04-27 21:27:00 Test Item Value Reference Range Interpretation Comments Sodium Lvl (test code = Sodium Lvl) 129 135-145 [facility] [id number] 21:27:00 Test Item Value Reference Range Interpretation Comments Potassium Lvl (test code = Potassium 4.2 3.5-5.1 Lvl) [facility]atroD[facility] [id number] 21:27:00 Test Item Value Reference Range Interpretation Comments Chloride Lvl (test code = Chloride Lvl) 92 95-109 [place] 937090-04-27 21:27:00 Test Item Value Reference Range Interpretation Comments CO2 (test code = CO2) 26 24-32 [facility] [id number] 21:27:00 Test Item Value Reference Range Interpretation Comments Calcium Lvl (test code = Calcium Lvl) 8.3 8.5-10.5 [place] 937090-04-27 21:27:00 Test Item Value Reference Range Interpretation Comments Total Protein (test code = Total 5.5 6.4-8.4 Protein) [place] 937090-04-27 21:27:00 Test Item Value Reference Range Interpretation Comments Albumin Lvl (test code = Albumin Lvl) 2.4 3.5-5.0 [facility] [id number] 21:27:00 Test Item Value Reference Range Interpretation Comments ALT (test code = ALT) 18 See_Comment [Auto mated message] The system which ge nerated this result transmit emerson reference range : <=65. The reference range was not used to interpr et this result as erinn l/abnormal. [facility] [id number] 21:27:00 Test Item Value Reference Range Interpretation Comments AST (test code = AST) 20 See_Comment [Auto mated message] The system which ge nerated this result transmit emerson reference range : <=37. The reference range was not used to interpr et this result as erinn l/abnormal. [place] [employer] [id number] 21:27:00 Test Item Value Reference Range Interpretation Comments Alk Phos (test code = Alk Phos) 76 39-136 [facility] [id number] 21:27:00 Test Item Value Reference Range Interpretation Comments Bili Total (test code = Bili Total) 0.3 0.2-1.3 [facility] [id number] 21:27:00 Test Item Value Reference Range Interpretation Comments AGAP (test code = AGAP) 15.2 10.0-20.0 [facility] [id number] 21:27:00 Test Item Value Reference Range Interpretation Comments B/C Ratio (test code = B/C Ratio) 5 1 6-25 [facility] [id number] 21:27:00 Test Item Value Reference Range Interpretation Comments Globulin (test code = Globulin) 3.1 2.7-4.2 [facility] [id number] 21:27:00 Test Item Value Reference Range Interpretation Comments A/G Ratio (test code = A/G Ratio) 0.8 1 0.7-1.6 [facility] [id number] 21:27:00 Test Item Value Reference Range Interpretation Comments eGFR (test code = eGFR) 4 [facility] HospitalTbtskclYZYXXZNWCE7444-87-82 21:27:00 Test Item Value Reference Range Interpretation Comments WBC (test code = WBC) 8.7 3.7-10.4 [facility] HospitalVvsatqqZKHLJRZAEX5854-86-62 21:27:00 Test Item Value Reference Range Interpretation Comments RBC (test code = RBC) 2.94 4.70-6.10 [facility] HospitalRoyxgwkORZOGUVHER1711-17-33 21:27:00 Test Item Value Reference Range Interpretation Comments Hgb (test code = Hgb) 8.4 14.0-18.0 [facility] HospitalMzhtwjkUPCVJEDBEM4108-19-96 21:27:00 Test Item Value Reference Range Interpretation Comments Hct (test code = Hct) 25.0 42.0-54.0 [facility] HospitalRotitxvQZXQVHQFLQ0222-84-65 21:27:00 Test Item Value Reference Range Interpretation Comments MCV (test code = MCV) 84.9 80.0-94.0 [facility] TexasErqdhuhNOROUIJRPA6255-27-13 21:27:00 Test Item Value Reference Range Interpretation Comments MCH (test code = MCH) 28.7 pg 27.0-31.0 [facility] TexasQqdnzwlKZMCKGBYKH2511-01-78 21:27:00 Test Item Value Reference Range Interpretation Comments MCHC (test code = MCHC) 33.8 32.0-36.0 [facility] TexasSoajoksPXDFUFINNV8757-06-12 21:27:00 Test Item Value Reference Range Interpretation Comments RDW (test code = RDW) 14.4 11.5-14.5 [facility] TexasYtjlsgoQNODIJVSAO3592-72-77 21:27:00 Test Item Value Reference Range Interpretation Comments Platelet (test code = Platelet) 150 133-450 [facility] TexasWblucceQARRECJOJC5939-94-25 21:27:00 Test Item Value Reference Range Interpretation Comments MPV (test code = MPV) 7.6 7.4-10.4 [facility] TexasYcotrhrHMHXYIOJGX1262-12-37 21:27:00 Test Item Value Reference Range Interpretation Comments Neutrophils # (test code = Neutrophils 7.7 1.5-8.1 #) [facility] TexasUgrnrtqWNDGOKSLMJ1740-86-01 21:27:00 Test Item Value Reference Range Interpretation Comments Lymphocytes # (test code = Lymphocytes 0.4 1.0-5.5 #) [facility] TexasVgusqrkGKAULSJDXE0059-42-66 21:27:00 Test Item Value Reference Range Interpretation Comments Monocytes # (test code 0.3 See_Comment [Aut omated message] The = Monocytes #) system which generated this result tra nsmitted reference range : <=0.8. The reference r yared was not used to int erpret this result as normal/abnormal . [facility] TexasVpfwhhcXPSYYMNQIX9816-04-49 21:27:00 Test Item Value Reference Range Interpretation Comments Eosinophils # (test code 0.2 See_Comment [A utomated message] The = Eosinophils #) system whic h generated this result tra nsmitted reference range : <=0.5. The reference r yared was not used to int erpret this result as normal/abnormal . [facility] TexasYrakbroIEBCBHTWVB4570-30-31 21:27:00 Test Item Value Reference Range Interpretation Comments Segs (test code = Segs) 86.0 45.0-75.0 [facility]JfdgwtuTGOWTPGRYA7652-96-53 21:27:00 Test Item Value Reference Range Interpretation Comments Bands (test code = 3.0 See_Comment [Automat ed message] The Bands) system which ge nerated this result transmit emerson reference range : <=11.0. The reference r yared was not used to interpr et this result as erinn l/abnormal. [facility] TexasJezjqlvPDLWOJBWJU5545-75-11 21:27:00 Test Item Value Reference Range Interpretation Comments Lymphocytes (test code = Lymphocytes) 3.0 20.0-40.0 [facility] HospitalWjvyykiXARAUORAZP3182-67-46 21:27:00 Test Item Value Reference Range Interpretation Comments Monocytes (test code = Monocytes) 4.0 2.0-12.0 [facility] Tex[id number] 21:27:00 Test Item Value Reference Range Interpretation Comments Eosinophils (test code = 2.0 See_Comment [A utomated message] The Eosinophils) system which ge nerated this result tra nsmitted reference range : <=4.0. The reference r yared was not used to int erpret this result as normal/abnormal . [facility] HospitalKpjheclEVKCKJZCHW2981-57-08 21:27:00 Test Item Value Reference Range Interpretation Comments Atypical Lymphs (test code = Atypical 2.0 Lymphs) [facility] TexasBpsumbqZAERWFBGFL3689-40-71 21:27:00 Test Item Value Reference Range Interpretation Comments RBC Morph (test code = Normal (02/03/20 4:27 RBC Morph) PM) [facility] TexasUojvpspNUQGODLQUY6865-98-95 21:27:00 Test Item Value Reference Range Interpretation Comments Plt Morph (test code = Normal (02/03/20 4:27 Plt Morph) PM) [facility] TexasWqikhhfFSNBSZCEDC8859-03-27 21:27:00 Test Item Value Reference Range Interpretation Comments Anisocyte (test code = 1+ *ABN*(02/03/20 Anisocyte) 4:27 PM) [facility] HospitalTwssgepGVELNFYUAO6605-76-18 21:14:00 Test Item Value Reference Range Interpretation Comments Coronavirus (COVID-19) Not Detected (02/03/20 JUVENCIO (test code = 4:14 PM) Coronavirus (COVID-19) JUVENCIO) [facility]2020-01-27 18:30:00 Test Item Value Reference Range Interpretation Comments Color BF (test code = Colorless (11/04/19 12:30 Color BF) PM) [facility]2020-01-27 18:30:00 Test Item Value Reference Range Interpretation Comments Clarity BF (test code = Clear (11/04/19 12:30 Clarity BF) PM) [facility]2020-01-27 18:30:00 Test Item Value Reference Range Interpretation Comments Nucleated Cells BF (test code = 11 Nucleated Cells BF) [facility]2020-01-27 18:30:00 Test Item Value Reference Range Interpretation Comments RBC BF (test code = RBC BF) 11 [facility]2020-01-27 18:30:00 Test Item Value Reference Range Interpretation Comments Neutrophils BF (test code = Neutrophils 11 BF) [facility]2020-01-27 18:30:00 Test Item Value Reference Range Interpretation Comments Lymph BF (test code = Lymph BF) 56 [facility]2020-01-27 18:30:00 Test Item Value Reference Range Interpretation Comments Macrophage BF (test code = Macrophage 33 BF) [facility]2020-01-27 18:30:00 Test Item Value Reference Range Interpretation Comments CellCnt BF Type (test Periton (11/04/19 12:30 code = CellCnt BF Type) PM) [facility] HospitalGram Stain [id number] 18:30:00 Test Item Value Reference Range Interpretation Comments Gram Stain Report Rare WBC's No Organisms (test code = Gram Seen Stain Report) [facility] HospitalCulture: Aspirate/Body Fluid/Ukusox7129-73-22 18:30:00 Test Item Value Reference Range Interpretation Comments Culture: 48 Hour Report - No Aspirate/Body Growth, Holding Fluid/Tissue (test code = Culture: Aspirate/Body Fluid/Tissue) [facility] [id number] 18:00:00 Test Item Value Reference Range Interpretation Comments Glucose Lvl (test code = Glucose Lvl) 125 70-99 [facility] [id number] 18:00:00 Test Item Value Reference Range Interpretation Comments BUN (test code = BUN) 40 7-22 [facility] [id number] 18:00:00 Test Item Value Reference Range Interpretation Comments Creatinine Lvl (test code = Creatinine 10.60 0.50-1.40 Lvl) [facility]2020-01-27 18:00:00 Test Item Value Reference Range Interpretation Comments Sodium Lvl (test code = Sodium Lvl) 141 135-145 [facility]2020-01-27 18:00:00 Test Item Value Reference Range Interpretation Comments Potassium Lvl (test code = Potassium 3.8 3.5-5.1 Lvl) [facility]2020-01-27 18:00:00 Test Item Value Reference Range Interpretation Comments Chloride Lvl (test code = Chloride Lvl) 101 95-109 [facility]2020-01-27 18:00:00 Test Item Value Reference Range Interpretation Comments CO2 (test code = CO2) 32 24-32 [facility]2020-01-27 18:00:00 Test Item Value Reference Range Interpretation Comments Calcium Lvl (test code = Calcium Lvl) 9.3 8.5-10.5 [facility]2020-01-27 18:00:00 Test Item Value Reference Range Interpretation Comments AGAP (test code = AGAP) 11.8 10.0-20.0 [facility]2020-01-27 18:00:00 Test Item Value Reference Range Interpretation Comments eGFR (test code = eGFR) 5 [facility] HospitalRmqzhwlIYQYBMKLNE9573-01-27 18:08:00 Test Item Value Reference Range Interpretation Comments Vanco Lvl (test code = Vanco Lvl) 10.2 [facility]2020-01-26 13:45:00 Test Item Value Reference Range Interpretation Comments Glucose Lvl (test code = Glucose Lvl) 163 70-99 [facility]2020-01-26 13:45:00 Test Item Value Reference Range Interpretation Comments BUN (test code = BUN) 35 7-22 [facility]2020-01-26 13:45:00 Test Item Value Reference Range Interpretation Comments Creatinine Lvl (test code = Creatinine 9.71 0.50-1.40 Lvl) [facility]2020-01-26 13:45:00 Test Item Value Reference Range Interpretation Comments Sodium Lvl (test code = Sodium Lvl) 139 135-145 [facility]2020-01-26 13:45:00 Test Item Value Reference Range Interpretation Comments Potassium Lvl (test code = Potassium 3.4 3.5-5.1 Lvl) [place] 937090-01-26 13:45:00 Test Item Value Reference Range Interpretation Comments Chloride Lvl (test code = Chloride Lvl) 102 95-109 [place] 937090-01-26 13:45:00 Test Item Value Reference Range Interpretation Comments CO2 (test code = CO2) 29 24-32 [place] 937090-01-26 13:45:00 Test Item Value Reference Range Interpretation Comments Calcium Lvl (test code = Calcium Lvl) 9.0 8.5-10.5 [place] 937090-01-26 13:45:00 Test Item Value Reference Range Interpretation Comments AGAP (test code = AGAP) 11.4 10.0-20.0 [place] 937090-01-26 13:45:00 Test Item Value Reference Range Interpretation Comments eGFR (test code = eGFR) 5 [facility] TexasKdqhdggBVDRWTZUWE2418-38-88 13:45:00 Test Item Value Reference Range Interpretation Comments WBC (test code = WBC) 4.3 3.7-10.4 [place] [address]-01-26 13:45:00 Test Item Value Reference Range Interpretation Comments RBC (test code = RBC) 3.00 4.70-6.10 [place] [address]-01-26 13:45:00 Test Item Value Reference Range Interpretation Comments Hgb (test code = Hgb) 8.4 14.0-18.0 [place] [address]-01-26 13:45:00 Test Item Value Reference Range Interpretation Comments Hct (test code = Hct) 25.3 42.0-54.0 [place] [address]-01-26 13:45:00 Test Item Value Reference Range Interpretation Comments MCV (test code = MCV) 84.3 80.0-94.0 [place] [address]-01-26 13:45:00 Test Item Value Reference Range Interpretation Comments MCH (test code = MCH) 28.2 pg 27.0-31.0 [place] 942770-01-26 13:45:00 Test Item Value Reference Range Interpretation Comments MCHC (test code = MCHC) 33.4 32.0-36.0 [place] [address]-01-26 13:45:00 Test Item Value Reference Range Interpretation Comments RDW (test code = RDW) 14.5 11.5-14.5 [place] 942770-01-26 13:45:00 Test Item Value Reference Range Interpretation Comments Platelet (test code = Platelet) 217 133-450 [place] 942770-01-26 13:45:00 Test Item Value Reference Range Interpretation Comments MPV (test code = MPV) 6.5 7.4-10.4 [place] [address]-01-26 13:45:00 Test Item Value Reference Range Interpretation Comments Segs (test code = Segs) 66.4 45.0-75.0 [place] [address]-01-26 13:45:00 Test Item Value Reference Range Interpretation Comments Lymphocytes (test code = Lymphocytes) 19.6 20.0-40.0 [place] [address]-01-26 13:45:00 Test Item Value Reference Range Interpretation Comments Monocytes (test code = Monocytes) 9.3 2.0-12.0 [place] [address]-01-26 13:45:00 Test Item Value Reference Range Interpretation Comments Eosinophils (test code = 3.7 See_Comment [A utomated message] The Eosinophils) system which ge nerated this result tra nsmitted reference range : <=4.0. The reference r yared was not used to int erpret this result as normal/abnormal . [facility] TexasMjxdkxgTYJTFIUYRR5076-94-10 13:45:00 Test Item Value Reference Range Interpretation Comments Basophils (test code = 1.0 See_Comment [Aut omated message] The Basophils) system which ge nerated this result tra nsmitted reference range : <=1.0. The reference r yared was not used to int erpret this result as normal/abnormal . [place] 942770-01-26 13:45:00 Test Item Value Reference Range Interpretation Comments Neutrophils # (test code = Neutrophils 2.8 1.5-8.1 #) [place] 942770-01-26 13:45:00 Test Item Value Reference Range Interpretation Comments Lymphocytes # (test code = Lymphocytes 0.8 1.0-5.5 #) [place] 942770-01-26 13:45:00 Test Item Value Reference Range Interpretation Comments Monocytes # (test code 0.4 See_Comment [Aut omated message] The = Monocytes #) system which generated this result tra nsmitted reference range : <=0.8. The reference r yared was not used to int erpret this result as normal/abnormal . [facility] TexasDkjyumiXAXJZFPTOS8661-14-41 13:45:00 Test Item Value Reference Range Interpretation Comments Eosinophils # (test code 0.2 See_Comment [A utomated message] The = Eosinophils #) system whic h generated this result tra nsmitted reference range : <=0.5. The reference r yared was not used to int erpret this result as normal/abnormal . [facility]ELD9277[facility] 13:25:00 Test Item Value Reference Range Interpretation Comments Sodium Lvl (test code = Sodium Lvl) 136 135-145 [facility]NvvmujtGNEQRXOOHNWL8365-34-69 13:25:00 Test Item Value Reference Range Interpretation Comments Potassium Lvl (test code = Potassium 3.7 3.5-5.1 Lvl) [facility]VsujitpDVJAVXOXAVWU6206-88-72 13:25:00 Test Item Value Reference Range Interpretation Comments Chloride Lvl (test code = Chloride Lvl) 99 95-109 [facility]CxpehbgKWJMZDHFNAKL9122-13-03 13:25:00 Test Item Value Reference Range Interpretation Comments Glucose Lvl (test code = Glucose Lvl) 137 70-99 [facility]BmiyqcyKKMXQAGDLRKL4460-13-13 13:25:00 Test Item Value Reference Range Interpretation Comments BUN (test code = BUN) 42 7-22 [place] 462270-01-25 13:25:00 Test Item Value Reference Range Interpretation Comments Creatinine Lvl (test code = Creatinine 9.35 0.50-1.40 Lvl) [place] 462270-01-25 13:25:00 Test Item Value Reference Range Interpretation Comments CO2 (test code = CO2) 32 24-32 [facility]LspcwlmEQTMWZNRZEZM0995-96-77 13:25:00 Test Item Value Reference Range Interpretation Comments Calcium Lvl (test code = Calcium Lvl) 8.8 8.5-10.5 [facility] OaklandQyeqyotHSADIJYPUZLG1498-59-67 13:25:00 Test Item Value Reference Range Interpretation Comments AGAP (test code = AGAP) 8.7 10.0-20.0 [facility]SncvwywTHVDOJYTQBLM7116-40-53 13:25:00 Test Item Value Reference Range Interpretation Comments eGFR (test code = eGFR) 6 [facility] HospitalEdrgkzmSAJGXKNJKD7992-46-16 17:58:00 Test Item Value Reference Range Interpretation Comments Vanco Lvl (test code = Vanco Lvl) 10.6 [facility] HospitalBODY [id number] 15:00:00 Test Item Value Reference Range Interpretation Comments Color BF (test code = Colorless (11/01/19 9:00 Color BF) AM) [facility] [id number] 15:00:00 Test Item Value Reference Range Interpretation Comments Clarity BF (test code = Slight Cloudy (11/01/19 Clarity BF) 9:00 AM) [facility] [id number] 15:00:00 Test Item Value Reference Range Interpretation Comments Nucleated Cells BF (test code = 579 Nucleated Cells BF) [facility] [id number] 15:00:00 Test Item Value Reference Range Interpretation Comments RBC BF (test code = RBC BF) 54 [facility] [id number] 15:00:00 Test Item Value Reference Range Interpretation Comments Neutrophils BF (test code = Neutrophils 20 BF) [facility] [id number] 15:00:00 Test Item Value Reference Range Interpretation Comments Lymph BF (test code = Lymph BF) 41 [facility] [id number] 15:00:00 Test Item Value Reference Range Interpretation Comments Macrophage BF (test code = Macrophage 35 BF) [facility] CUTVZI1662-11-75 15:00:00 Test Item Value Reference Range Interpretation Comments Meso BF (test code = Meso BF) 4 [facility] [id number] 15:00:00 Test Item Value Reference Range Interpretation Comments CellCnt BF Type (test Periton (11/01/19 9:00 code = CellCnt BF Type) AM) [facility] HospitalGram Stain [id number] 15:00:00 Test Item Value Reference Range Interpretation Comments Gram Stain Report No Wbc'S Or Organisms (test code = Gram Seen Stain Report) [facility] HospitalCulture: Aspirate/Body Fluid/Fdditp6237-79-71 15:00:00 Test Item Value Reference Range Interpretation Comments Culture: Aspirate/Body Fluid/Tissue No Growth (test code = Culture: Aspirate/Body Fluid/Tissue) [facility] HospitalB[facility] [id number] 18:35:00 Test Item Value Reference Range Interpretation Comments Color BF (test code = Colorless (10/31/19 12:35 Color BF) PM) [facility] [id number] 18:35:00 Test Item Value Reference Range Interpretation Comments Clarity BF (test code = Slight Cloudy (10/31/19 Clarity BF) 12:35 PM) [facility] [id number] 18:35:00 Test Item Value Reference Range Interpretation Comments Nucleated Cells BF (test code = 557 Nucleated Cells BF) [facility] HospitalB[facility] [id number] 18:35:00 Test Item Value Reference Range Interpretation Comments RBC BF (test code = RBC BF) 0 [facility] HospitalBODY [id number] 18:35:00 Test Item Value Reference Range Interpretation Comments Neutrophils BF (test code = Neutrophils 35 BF) [facility]2020-01-23 18:35:00 Test Item Value Reference Range Interpretation Comments Lymph BF (test code = Lymph BF) 21 [facility] HospitalBODY JTIETY1706-20-19 18:35:00 Test Item Value Reference Range Interpretation Comments Macrophage BF (test code = Macrophage 43 BF) [facility] [id number] 18:35:00 Test Item Value Reference Range Interpretation Comments Eos BF (test code = Eos BF) 1 [facility] JRGQFI4701-23-08 18:35:00 Test Item Value Reference Range Interpretation Comments CellCnt BF Type (test Periton (10/31/19 12:35 code = CellCnt BF Type) PM) [facility] HospitalGram Stain Oisxpi0416-69-76 18:35:00 Test Item Value Reference Range Interpretation Comments Gram Stain Report Rare WBC's No Organisms (test code = Gram Seen Stain Report) [facility]annCulture: Aspirate/Body Fluid/Cyxghs4618-79-44 18:35:00 Test Item Value Reference Range Interpretation Comments Culture: Aspirate/Body Fluid/Tissue No Growth (test code = Culture: Aspirate/Body Fluid/Tissue) [facility] HospitalannCHEM [id number] 10:35:00 Test Item Value Reference Range Interpretation Comments Phosphorus (test code = Phosphorus) 4.3 2.5-4.5 [facility] [id number] 10:35:00 Test Item Value Reference Range Interpretation Comments Magnesium Lvl (test code = Magnesium 2.0 1.8-2.4 Lvl) [facility]MdgpaapMHCRSTMCNO9618-28-73 10:35:00 Test Item Value Reference Range Interpretation Comments WBC (test code = WBC) 6.3 3.7-10.4 [facility] HospitalOyadfroYVTHOZYSFC1850-05-56 10:35:00 Test Item Value Reference Range Interpretation Comments RBC (test code = RBC) 2.76 4.70-6.10 [facility] TexasQyprztxXSYXQRBKKC7668-15-98 10:35:00 Test Item Value Reference Range Interpretation Comments Hgb (test code = Hgb) 8.1 14.0-18.0 [facility] TexasCbbdyeiUBTEYPZJBY9385-41-48 10:35:00 Test Item Value Reference Range Interpretation Comments Hct (test code = Hct) 23.5 42.0-54.0 [facility] TexasDqzzhxaYIVGFTMALN4215-68-04 10:35:00 Test Item Value Reference Range Interpretation Comments MCV (test code = MCV) 85.2 80.0-94.0 [facility] TexasDyaesowMRFFZKILQL8327-59-68 10:35:00 Test Item Value Reference Range Interpretation Comments MCH (test code = MCH) 29.2 pg 27.0-31.0 [facility] TexasQtpmlcdPIURTKNVXA6191-72-91 10:35:00 Test Item Value Reference Range Interpretation Comments MCHC (test code = MCHC) 34.3 32.0-36.0 [facility] TexasWojnybzWMORAGCZJI6620-62-27 10:35:00 Test Item Value Reference Range Interpretation Comments RDW (test code = RDW) 14.5 11.5-14.5 [facility] TexasFnforacYUOETPZSAJ0392-01-44 10:35:00 Test Item Value Reference Range Interpretation Comments Platelet (test code = Platelet) 188 133-450 [facility] TexasVdviwpnFRFIPUMRSM5371-78-51 10:35:00 Test Item Value Reference Range Interpretation Comments MPV (test code = MPV) 7.0 7.4-10.4 [facility] TexasHxtsdtiTMNIXDKWYH0805-66-37 10:35:00 Test Item Value Reference Range Interpretation Comments Segs (test code = Segs) 77.7 45.0-75.0 [facility] TexasIrdkatsKVQPDFOYYD4786-91-98 10:35:00 Test Item Value Reference Range Interpretation Comments Lymphocytes (test code = Lymphocytes) 10.2 20.0-40.0 [facility] TexasPhnvfjzZRPZTYQKMB3608-08-48 10:35:00 Test Item Value Reference Range Interpretation Comments Monocytes (test code = Monocytes) 10.0 2.0-12.0 [facility] TexasZucymxeZFEMDNLADJ9484-90-73 10:35:00 Test Item Value Reference Range Interpretation Comments Eosinophils (test code = 1.7 See_Comment [A utomated message] The Eosinophils) system which ge nerated this result tra nsmitted reference range : <=4.0. The reference r yared was not used to int erpret this result as normal/abnormal . [facility] TexasRsfvfbyNGWFEHKUQP5111-80-69 10:35:00 Test Item Value Reference Range Interpretation Comments Basophils (test code = 0.4 See_Comment [Aut omated message] The Basophils) system which ge nerated this result tra nsmitted reference range : <=1.0. The reference r yared was not used to int erpret this result as normal/abnormal . [facility] TexasTvrtircUCZXXZNFEC5868-48-36 10:35:00 Test Item Value Reference Range Interpretation Comments Neutrophils # (test code = Neutrophils 4.9 1.5-8.1 #) [facility] TexasAjnmyotYWCPUJELUI7329-09-83 10:35:00 Test Item Value Reference Range Interpretation Comments Lymphocytes # (test code = Lymphocytes 0.6 1.0-5.5 #) [facility] TexasJlkxafjBLPSVJDAAF5157-07-23 10:35:00 Test Item Value Reference Range Interpretation Comments Monocytes # (test code 0.6 See_Comment [Aut omated message] The = Monocytes #) system which generated this result tra nsmitted reference range : <=0.8. The reference r yared was not used to int erpret this result as normal/abnormal . [facility] TexasGolkxnqCNRTPVQYKM8362-16-07 10:35:00 Test Item Value Reference Range Interpretation Comments Eosinophils # (test code 0.1 See_Comment [A utomated message] The = Eosinophils #) system whic h generated this result tra nsmitted reference range : <=0.5. The reference r yared was not used to int erpret this result as normal/abnormal . [id number] 19:34:00 Test Item Value Reference Range Interpretation Comments Source Respiratory Nasophrngl Swb Panel PCR (test code = *NA*(10/30/19 1:34 PM) Source Respiratory Panel PCR) [facility] [id number] 19:34:00 Test Item Value Reference Range Interpretation Comments Influenza A PCR (test Negative *NA*(10/30/19 code = Influenza A PCR) 1:34 PM[id number] 19:34:00 Test Item Value Reference Range Interpretation Comments Influenza B PCR (test Negative *NA*(10/30/19 code = Influenza B PCR) 1:34 PM) [facility] [id number] 19:34:00 Test Item Value Reference Range Interpretation Comments RSV PCR (test code = Positive *ABN*(10/30/19 RSV PCR) 1:34 PM) [facility]PT:ISOLATE:ORDQN:[id number] 18:00:00 Test Item Value Reference Range Interpretation Comments Gram Stain Report Few WBC's No Organisms (test code = Gram Seen Stain Report) [facility]:PT:ISOLATE:ORDQN:[id number] 18:00:00 Test Item Value Reference Range Interpretation Comments Culture: Few Pseudomonas putida Aspirate/Body Growth In Subculture Broth Fluid/Tissue (test Only Enterococcus Species code = Culture: Aspirate/Body Fluid/Tissue) [facility]IM[facility]US[facility]:PT:ISOLATE:ORDQN:[id number] 18:00:00 Test Item Value Reference Range Interpretation Comments Enterococcus Species Enterococcus Species (test code = Enterococcus Species) [facility]USC:PT:ISOLATE:ORDQN:[id number] 18:00:00 Test Item Value Reference Range Interpretation Comments Pseudomonas putida (test Pseudomonas putida code = Pseudomonas putida) [facility] [id number] 17:21:00 Test Item Value Reference Range Interpretation Comments Lactic Acid Lvl (test code = Lactic 0.6 0.5-2.2 Acid Lvl) [facility]CHE[facility] [id number] 10:56:00 Test Item Value Reference Range Interpretation Comments Magnesium Lvl (test code = Magnesium 2.1 1.8-2.4 Lvl) [facility]2020-01-22 10:56:00 Test Item Value Reference Range Interpretation Comments Phosphorus (test code = Phosphorus) 4.5 2.5-4.5 [facility] HospitalWptehjyWBZKOPOUTF5795-79-80 10:56:00 Test Item Value Reference Range Interpretation Comments WBC (test code = WBC) 6.7 3.7-10.4 [facility]IT[facility]GZDYN5718[facility] 10:56:00 Test Item Value Reference Range Interpretation Comments RBC (test code = RBC) 2.47 4.70-6.10 [facility] HospitalQiljntrZPGWYPJIBT5807-96-42 10:56:00 Test Item Value Reference Range Interpretation Comments Hgb (test code = Hgb) 7.2 14.0-18.0 [facility] TexasMenciceIUFNZMYFDN1541-91-68 10:56:00 Test Item Value Reference Range Interpretation Comments Hct (test code = Hct) 21.1 42.0-54.0 [facility] TexasZsryordDDLNZQMDYB8107-46-53 10:56:00 Test Item Value Reference Range Interpretation Comments MCV (test code = MCV) 85.2 80.0-94.0 [facility] TexasEjvkflwEALHDJIYVO9469-50-93 10:56:00 Test Item Value Reference Range Interpretation Comments MCH (test code = MCH) 28.9 pg 27.0-31.0 [facility] [id number] 10:56:00 Test Item Value Reference Range Interpretation Comments MCHC (test code = MCHC) 34.0 32.0-36.0 [facility] TexasBpkvqthAMCRZGXYII6625-78-98 10:56:00 Test Item Value Reference Range Interpretation Comments RDW (test code = RDW) 14.6 11.5-14.5 [facility] TexasPssuowdKBRHEUXKYN9123-13-30 10:56:00 Test Item Value Reference Range Interpretation Comments Platelet (test code = Platelet) 171 133-450 [facility] HospitalYkbzujaACAIXPUPTA9551-56-92 10:56:00 Test Item Value Reference Range Interpretation Comments MPV (test code = MPV) 7.2 7.4-10.4 [facility] TexasKaunarqCMSEZIZRIL0012-80-91 10:56:00 Test Item Value Reference Range Interpretation Comments Segs (test code = Segs) 87.8 45.0-75.0 [place] [id number] 10:56:00 Test Item Value Reference Range Interpretation Comments Lymphocytes (test code = Lymphocytes) 3.9 20.0-40.0 [facility] TexasFocrptdFUIEGBVDLL4083-15-91 10:56:00 Test Item Value Reference Range Interpretation Comments Monocytes (test code = Monocytes) 6.8 2.0-12.0 [facility] TexasTlpdjdkAHQFZYWRUZ2555-00-23 10:56:00 Test Item Value Reference Range Interpretation Comments Eosinophils (test code = 1.1 See_Comment [A utomated message] The Eosinophils) system which ge nerated this result tra nsmitted reference range : <=4.0. The reference r yared was not used to int erpret this result as normal/abnormal . [place] [id number] 10:56:00 Test Item Value Reference Range Interpretation Comments Basophils (test code = 0.4 See_Comment [Aut omated message] The Basophils) system which ge nerated this result tra nsmitted reference range : <=1.0. The reference r yared was not used to int erpret this result as normal/abnormal . [facility] TexasDgvssguQTKRMNOMXD6750-11-29 10:56:00 Test Item Value Reference Range Interpretation Comments Neutrophils # (test code = Neutrophils 5.9 1.5-8.1 #) [facility] TexasNkjheuiEOICREJJYB9521-72-14 10:56:00 Test Item Value Reference Range Interpretation Comments Lymphocytes # (test code = Lymphocytes 0.3 1.0-5.5 #) [facility] TexasFgjspppMGEYXBGDLH9932-10-37 10:56:00 Test Item Value Reference Range Interpretation Comments Monocytes # (test code 0.5 See_Comment [Aut omated message] The = Monocytes #) system which generated this result tra nsmitted reference range : <=0.8. The reference r yared was not used to int erpret this result as normal/abnormal . [place] [id number] 10:56:00 Test Item Value Reference Range Interpretation Comments Eosinophils # (test code 0.1 See_Comment [A utomated message] The = Eosinophils #) system whic h generated this result tra nsmitted reference range : <=0.5. The reference r yared was not used to int erpret this result as normal/abnormal . [facility]2020-01-21 22:52:00 Test Item Value Reference Range Interpretation Comments Magnesium Lvl (test code = Magnesium 2.2 1.8-2.4 Lvl) [place] [employer]2020-01-21 22:52:00 Test Item Value Reference Range Interpretation Comments Phosphorus (test code = Phosphorus) 5.8 2.5-4.5 [place] [employer]2020-01-21 10:47:00 Test Item Value Reference Range Interpretation Comments Troponin-I (test code 0.02 See_Comment [Auto mated message] The = Troponin-I) system which g enerated this result transmit emerson reference range : <=0.40. The reference r yared was not used to interpr et this result as erinn l/abnormal. [place] [employer]2020-01-21 07:19:00 Test Item Value Reference Range Interpretation Comments Troponin-I (test code 0.02 See_Comment [Auto mated message] The = Troponin-I) system which g enerated this result transmit emerson reference range : <=0.40. The reference r yared was not used to interpr et this result as erinn l/abnormal. [place] [employer]2020-01-21 03:06:00 Test Item Value Reference Range Interpretation Comments Troponin-I (test code no gt See_Comment [Auto mated message] The = Troponin-I) system which g enerated this result transmit emerson reference range : <=0.40. The reference r yared was not used to interpr et this result as erinn l/abnormal. [employer]2020-01-21 03:06:00 Test Item Value Reference Range Interpretation Comments Total Protein (test code = Total 5.5 6.4-8.4 Protein) [place] [employer]2020-01-21 03:06:00 Test Item Value Reference Range Interpretation Comments Albumin Lvl (test code = Albumin Lvl) 2.3 3.5-5.0 [place] [employer]2020-01-21 03:06:00 Test Item Value Reference Range Interpretation Comments ALT (test code = ALT) 22 See_Comment [Auto mated message] The system which ge nerated this result transmit emerson reference range : <=65. The reference range was not used to interpr et this result as erinn l/abnormal. [place] 937090-01-21 03:06:00 Test Item Value Reference Range Interpretation Comments AST (test code = AST) 50 See_Comment [Auto mated message] The system which ge nerated this result transmit emerson reference range : <=37. The reference range was not used to interpr et this result as erinn l/abnormal. [place] 937090-01-21 03:06:00 Test Item Value Reference Range Interpretation Comments Alk Phos (test code = Alk Phos) 68 39-136 [place] 937090-01-21 03:06:00 Test Item Value Reference Range Interpretation Comments Bili Total (test code = Bili Total) 0.6 0.2-1.3 [place] [address]-01-21 03:06:00 Test Item Value Reference Range Interpretation Comments B/C Ratio (test code = B/C Ratio) 5 1 6-25 [place] 937090-01-21 03:06:00 Test Item Value Reference Range Interpretation Comments Globulin (test code = Globulin) 3.2 2.7-4.2 [place] 937090-01-21 03:06:00 Test Item Value Reference Range Interpretation Comments A/G Ratio (test code = A/G Ratio) 0.7 1 0.7-1.6 [place] 942770-01-21 03:06:00 Test Item Value Reference Range Interpretation Comments Plt Morph (test code = Normal (10/28/19 9:06 Plt Morph) PM) [facility] Tex[id number] 03:06:00 Test Item Value Reference Range Interpretation Comments Basophils # (test code 0.1 See_Comment [Aut omated message] The = Basophils #) system which generated this result tra nsmitted reference range : <=0.2. The reference r yared was not used to int erpret this result as normal/abnormal . [facility] TexasTjumepvMPLOCIVGQJ3359-63-09 10:56:00 Test Item Value Reference Range Interpretation Comments Lymphocytes # (test code = Lymphocytes 1.1 1.0-5.5 #) [facility] TexasKhfpemjYNFDNMSKVT3718-75-79 10:56:00 Test Item Value Reference Range Interpretation Comments Monocytes # (test code 0.5 See_Comment [Aut omated message] The = Monocytes #) system which generated this result tra nsmitted reference range : <=0.8. The reference r yared was not used to int erpret this result as normal/abnormal . [facility] TexasIoxewdpWFVCVANXHB9686-57-76 10:56:00 Test Item Value Reference Range Interpretation Comments Basophils # (test code 0.1 See_Comment [Aut omated message] The = Basophils #) system which generated this result tra nsmitted reference range : <=0.2. The reference r yared was not used to int erpret this result as normal/abnormal . [facility]2019-11-12 10:56:00 Test Item Value Reference Range Interpretation Comments Glucose Lvl (test code = Glucose Lvl) 93 70-99 [facility]2019-11-12 10:56:00 Test Item Value Reference Range Interpretation Comments BUN (test code = BUN) 26 7-22 [facility]2019-11-12 10:56:00 Test Item Value Reference Range Interpretation Comments Creatinine Lvl (test code = Creatinine 7.85 0.50-1.40 Lvl) [facility]2019-11-12 10:56:00 Test Item Value Reference Range Interpretation Comments Sodium Lvl (test code = Sodium Lvl) 140 135-145 [facility]2019-11-12 10:56:00 Test Item Value Reference Range Interpretation Comments Potassium Lvl (test code = Potassium 3.7 3.5-5.1 Lvl) [facility]2019-11-12 10:56:00 Test Item Value Reference Range Interpretation Comments Chloride Lvl (test code = Chloride Lvl) 104 95-109 [facility]2019-11-12 10:56:00 Test Item Value Reference Range Interpretation Comments CO2 (test code = CO2) 25 24-32 [facility]2019-11-12 10:56:00 Test Item Value Reference Range Interpretation Comments Calcium Lvl (test code = Calcium Lvl) 9.2 8.5-10.5 [facility]2019-11-12 10:56:00 Test Item Value Reference Range Interpretation Comments eGFR (test code = eGFR) 7 [facility]2019-11-12 10:56:00 Test Item Value Reference Range Interpretation Comments AGAP (test code = AGAP) 14.7 10.0-20.0 [facility] TexasLuablhkBYJPZVIFSD2212-04-35 10:56:00 Test Item Value Reference Range Interpretation Comments WBC (test code = WBC) 8.6 3.7-10.4 [facility] TexasCnytylmWHZPCUTTSV2057-15-63 10:56:00 Test Item Value Reference Range Interpretation Comments RBC (test code = RBC) 3.37 4.70-6.10 [facility] TexasOstnvjmICFHYNSZGU9170-76-63 10:56:00 Test Item Value Reference Range Interpretation Comments Hgb (test code = Hgb) 10.2 14.0-18.0 [facility] TexasUebxvciVMUQXPLYZV7993-03-53 10:56:00 Test Item Value Reference Range Interpretation Comments Hct (test code = Hct) 29.9 42.0-54.0 [facility] TexasHlesbviIXADLIVEVP0436-52-40 10:56:00 Test Item Value Reference Range Interpretation Comments MCV (test code = MCV) 88.7 80.0-94.0 [facility] TexasIhgpzvjWDTSPKIGMG8467-63-93 10:56:00 Test Item Value Reference Range Interpretation Comments MCH (test code = MCH) 30.1 pg 27.0-31.0 [facility] TexasFfwjwznPVAEVQQXLT6414-36-26 10:56:00 Test Item Value Reference Range Interpretation Comments MCHC (test code = MCHC) 33.9 32.0-36.0 [facility] TexasPjnealsSTVGZGNVXK6990-64-08 10:56:00 Test Item Value Reference Range Interpretation Comments RDW (test code = RDW) 13.7 11.5-14.5 [facility] TexasZqdobvvOHNQGIPJCS1189-35-64 10:56:00 Test Item Value Reference Range Interpretation Comments Platelet (test code = Platelet) 294 133-450 [facility] TexasZkynevuAYSVFYTEJW9466-87-03 10:56:00 Test Item Value Reference Range Interpretation Comments MPV (test code = MPV) 6.7 7.4-10.4 [facility] TexasKravgvwDIFOYQVPBF5106-90-42 10:56:00 Test Item Value Reference Range Interpretation Comments Segs (test code = Segs) 79.5 45.0-75.0 [facility] TexasLoriiofILIBOGOPLI6536-91-44 10:56:00 Test Item Value Reference Range Interpretation Comments Lymphocytes (test code = Lymphocytes) 12.8 20.0-40.0 [facility] TexasVlvozouKSHIMUMKYU0543-09-01 10:56:00 Test Item Value Reference Range Interpretation Comments Monocytes (test code = Monocytes) 6.3 2.0-12.0 [facility] TexasLvngekoTREMLXQGOA5931-85-41 10:56:00 Test Item Value Reference Range Interpretation Comments Eosinophils (test code = 0.6 See_Comment [A utomated message] The Eosinophils) system which ge nerated this result tra nsmitted reference range : <=4.0. The reference r yared was not used to int erpret this result as normal/abnormal . [facility] TexasUjtlpyrLLHKPTWKIH3549-22-43 10:56:00 Test Item Value Reference Range Interpretation Comments Basophils (test code = 0.8 See_Comment [Aut omated message] The Basophils) system which ge nerated this result tra nsmitted reference range : <=1.0. The reference r yared was not used to int erpret this result as normal/abnormal . [facility] TexasHieynvgHZGFCTSQDZ3479-41-47 10:56:00 Test Item Value Reference Range Interpretation Comments Neutrophils # (test code = Neutrophils 6.8 1.5-8.1 #) [facility]2019-11-11 10:14:00 Test Item Value Reference Range Interpretation Comments Glucose Lvl (test code = Glucose Lvl) 105 70-99 [facility]2019-11-11 10:14:00 Test Item Value Reference Range Interpretation Comments BUN (test code = BUN) 18 7-22 [facility]2019-11-11 10:14:00 Test Item Value Reference Range Interpretation Comments Creatinine Lvl (test code = Creatinine 7.09 0.50-1.40 Lvl) [facility]2019-11-11 10:14:00 Test Item Value Reference Range Interpretation Comments Sodium Lvl (test code = Sodium Lvl) 138 135-145 [facility]2019-11-11 10:14:00 Test Item Value Reference Range Interpretation Comments Potassium Lvl (test code = Potassium 3.6 3.5-5.1 Lvl) [facility]2019-11-11 10:14:00 Test Item Value Reference Range Interpretation Comments Chloride Lvl (test code = Chloride Lvl) 100 95-109 [facility]2019-11-11 10:14:00 Test Item Value Reference Range Interpretation Comments CO2 (test code = CO2) 28 24-32 [place] 344899-11-11 10:14:00 Test Item Value Reference Range Interpretation Comments AGAP (test code = AGAP) 13.6 10.0-20.0 [facility]2019-11-11 10:14:00 Test Item Value Reference Range Interpretation Comments Calcium Lvl (test code = Calcium Lvl) 9.5 8.5-10.5 [facility]2019-11-11 10:14:00 Test Item Value Reference Range Interpretation Comments eGFR (test code = eGFR) 8 [facility] TexasWuzqbjaZUECAJUSYA9259-01-24 10:14:00 Test Item Value Reference Range Interpretation Comments WBC (test code = WBC) 7.7 3.7-10.4 [facility] TexasPinthyxZAXERHXKGL7462-17-14 10:14:00 Test Item Value Reference Range Interpretation Comments RBC (test code = RBC) 3.61 4.70-6.10 [facility] TexasDapuahkSCJHVJOHZP6709-90-37 10:14:00 Test Item Value Reference Range Interpretation Comments Hgb (test code = Hgb) 10.8 14.0-18.0 [facility] TexasBbkmrskZVGPGTOGOS6482-16-74 10:14:00 Test Item Value Reference Range Interpretation Comments Hct (test code = Hct) 31.7 42.0-54.0 [facility] TexasIuaecurYMDHTGJMSY7226-55-15 10:14:00 Test Item Value Reference Range Interpretation Comments MCV (test code = MCV) 87.7 80.0-94.0 [facility] TexasRihfkndPOYKPVMBUD4735-24-52 10:14:00 Test Item Value Reference Range Interpretation Comments MCH (test code = MCH) 30.0 pg 27.0-31.0 [facility] TexasJzkqoujIYHPBYGIXU8568-48-91 10:14:00 Test Item Value Reference Range Interpretation Comments MCHC (test code = MCHC) 34.2 32.0-36.0 [facility] TexasIkxmauiXMUVXVAZUS7703-27-95 10:14:00 Test Item Value Reference Range Interpretation Comments RDW (test code = RDW) 14.0 11.5-14.5 [facility] TexasJsmtmzuKIUWAUSECW7303-04-90 10:14:00 Test Item Value Reference Range Interpretation Comments Platelet (test code = Platelet) 292 133-450 [facility] TexasLrhbnruOTTDDYZGBK7697-86-27 10:14:00 Test Item Value Reference Range Interpretation Comments MPV (test code = MPV) 7.0 7.4-10.4 [facility] TexasCcqzsyyVBWYGJRHXP2358-18-05 10:14:00 Test Item Value Reference Range Interpretation Comments Segs (test code = Segs) 75.0 45.0-75.0 [facility] TexasFulgdjnQPPHJKKQUS5592-06-51 10:14:00 Test Item Value Reference Range Interpretation Comments Lymphocytes (test code = Lymphocytes) 15.4 20.0-40.0 [facility] TexasWabnflaOCZNCZTYYX1055-57-52 10:14:00 Test Item Value Reference Range Interpretation Comments Monocytes (test code = Monocytes) 7.1 2.0-12.0 [facility] TexasEwdmahpFSBDXYBBTY1288-31-14 10:14:00 Test Item Value Reference Range Interpretation Comments Eosinophils (test code = 1.4 See_Comment [A utomated message] The Eosinophils) system which ge nerated this result tra nsmitted reference range : <=4.0. The reference r yared was not used to int erpret this result as normal/abnormal . [facility] TexasCvquihtZPLITZCTPK8035-96-95 10:14:00 Test Item Value Reference Range Interpretation Comments Basophils (test code = 1.1 See_Comment [Aut omated message] The Basophils) system which ge nerated this result tra nsmitted reference range : <=1.0. The reference r yared was not used to int erpret this result as normal/abnormal . [facility] TexasTltsdnkOYALNJJTJP9963-54-71 10:14:00 Test Item Value Reference Range Interpretation Comments Neutrophils # (test code = Neutrophils 5.8 1.5-8.1 #) [facility] TexasAxmxxquGNXIHJQQWF6569-55-57 10:14:00 Test Item Value Reference Range Interpretation Comments Lymphocytes # (test code = Lymphocytes 1.2 1.0-5.5 #) [facility] TexasMobywtiPLPVJAYGGM2767-34-24 10:14:00 Test Item Value Reference Range Interpretation Comments Monocytes # (test code 0.5 See_Comment [Aut omated message] The = Monocytes #) system which generated this result tra nsmitted reference range : <=0.8. The reference r yared was not used to int erpret this result as normal/abnormal . [facility] TexasMvtsuuySFHUYLDACD1398-46-09 10:14:00 Test Item Value Reference Range Interpretation Comments Eosinophils # (test code 0.1 See_Comment [A utomated message] The = Eosinophils #) system whic h generated this result tra nsmitted reference range : <=0.5. The reference r yared was not used to int erpret this result as normal/abnormal . [facility] TexasDqokdezWHVOYAPNLA8685-89-45 10:14:00 Test Item Value Reference Range Interpretation Comments Basophils # (test code 0.1 See_Comment [Aut omated message] The = Basophils #) system which generated this result tra nsmitted reference range : <=0.2. The reference r yared was not used to int erpret this result as normal/abnormal . [facility]2019-11-10 10:24:00 Test Item Value Reference Range Interpretation Comments Glucose Lvl (test code = Glucose Lvl) 106 70-99 [facility]2019-11-10 10:24:00 Test Item Value Reference Range Interpretation Comments BUN (test code = BUN) 34 7-22 [facility]2019-11-10 10:24:00 Test Item Value Reference Range Interpretation Comments Creatinine Lvl (test code = Creatinine 11.00 0.50-1.40 Lvl) [facility]2019-11-10 10:24:00 Test Item Value Reference Range Interpretation Comments Sodium Lvl (test code = Sodium Lvl) 139 135-145 [facility]2019-11-10 10:24:00 Test Item Value Reference Range Interpretation Comments Potassium Lvl (test code = Potassium 3.6 3.5-5.1 Lvl) [facility]2019-11-10 10:24:00 Test Item Value Reference Range Interpretation Comments Chloride Lvl (test code = Chloride Lvl) 103 95-109 [facility]2019-11-10 10:24:00 Test Item Value Reference Range Interpretation Comments CO2 (test code = CO2) 28 24-32 [facility]2019-11-10 10:24:00 Test Item Value Reference Range Interpretation Comments AGAP (test code = AGAP) 11.6 10.0-20.0 [facility]2019-11-10 10:24:00 Test Item Value Reference Range Interpretation Comments Calcium Lvl (test code = Calcium Lvl) 9.0 8.5-10.5 [facility]2019-11-10 10:24:00 Test Item Value Reference Range Interpretation Comments eGFR (test code = eGFR) 5 [facility] TexasWglwuzuHRTNDRGCRU8463-05-54 10:24:00 Test Item Value Reference Range Interpretation Comments WBC (test code = WBC) 6.9 3.7-10.4 [facility] TexasAsbjwamAXHJQWQAVA3913-01-31 10:24:00 Test Item Value Reference Range Interpretation Comments RBC (test code = RBC) 3.13 4.70-6.10 [facility] TexasQslpvsmACDGTEUTNP1793-36-88 10:24:00 Test Item Value Reference Range Interpretation Comments Hgb (test code = Hgb) 9.3 14.0-18.0 [facility] TexasFsonzjhGZKLSPDYVM2063-08-39 10:24:00 Test Item Value Reference Range Interpretation Comments Hct (test code = Hct) 27.4 42.0-54.0 [facility] TexasCaonfydTZTPXKYANC8674-49-87 10:24:00 Test Item Value Reference Range Interpretation Comments MCV (test code = MCV) 87.7 80.0-94.0 [facility] TexasZhozwyfAOMHJSPDGF3907-47-52 10:24:00 Test Item Value Reference Range Interpretation Comments MCH (test code = MCH) 29.6 pg 27.0-31.0 [facility] TexasDgguzmwEZWZJSJZSB0214-67-15 10:24:00 Test Item Value Reference Range Interpretation Comments MCHC (test code = MCHC) 33.8 32.0-36.0 [facility] TexasNxjnmpbDNUWDQAXJE6021-81-61 10:24:00 Test Item Value Reference Range Interpretation Comments RDW (test code = RDW) 14.0 11.5-14.5 [facility] TexasWcxntztJDCVXXNTNV9518-90-34 10:24:00 Test Item Value Reference Range Interpretation Comments Platelet (test code = Platelet) 236 133-450 [facility] TexasOpvycfpCPCMRPJQNG4725-42-57 10:24:00 Test Item Value Reference Range Interpretation Comments MPV (test code = MPV) 6.9 7.4-10.4 [facility] TexasJwtqudvSSGUUOCYQE9893-56-74 10:24:00 Test Item Value Reference Range Interpretation Comments Segs (test code = Segs) 78.2 45.0-75.0 [facility] TexasUkrinrwBAVJGRPPGM5076-80-40 10:24:00 Test Item Value Reference Range Interpretation Comments Lymphocytes (test code = Lymphocytes) 12.2 20.0-40.0 [facility] TexasDzkmuhiOMTQXVAXZY0116-53-25 10:24:00 Test Item Value Reference Range Interpretation Comments Monocytes (test code = Monocytes) 6.6 2.0-12.0 [facility] TexasIrqkzbdEFNBELLKTT5687-98-54 10:24:00 Test Item Value Reference Range Interpretation Comments Eosinophils (test code = 2.4 See_Comment [A utomated message] The Eosinophils) system which ge nerated this result tra nsmitted reference range : <=4.0. The reference r yared was not used to int erpret this result as normal/abnormal . [facility] TexasImzbwspUSKNPZOREE4174-76-52 10:24:00 Test Item Value Reference Range Interpretation Comments Basophils (test code = 0.6 See_Comment [Aut omated message] The Basophils) system which ge nerated this result tra nsmitted reference range : <=1.0. The reference r yared was not used to int erpret this result as normal/abnormal . [facility] TexasZtzhtqcLROSPCKMNK6055-06-33 10:24:00 Test Item Value Reference Range Interpretation Comments Neutrophils # (test code = Neutrophils 5.4 1.5-8.1 #) [facility] TexasAebhnrhHWIYMGIWRN6916-37-03 10:24:00 Test Item Value Reference Range Interpretation Comments Lymphocytes # (test code = Lymphocytes 0.8 1.0-5.5 #) [facility] TexasWxerzotJWLMASIOIM8342-59-42 10:24:00 Test Item Value Reference Range Interpretation Comments Monocytes # (test code 0.5 See_Comment [Aut omated message] The = Monocytes #) system which generated this result tra nsmitted reference range : <=0.8. The reference r yared was not used to int erpret this result as normal/abnormal . [facility] TexasGmgcioeXZPFTMXPKG4033-88-42 10:24:00 Test Item Value Reference Range Interpretation Comments Eosinophils # (test code 0.2 See_Comment [A utomated message] The = Eosinophils #) system whic h generated this result tra nsmitted reference range : <=0.5. The reference r yared was not used to int erpret this result as normal/abnormal . [facility] HospitalWewwaegKTSHEVUTTJ7558-23-61 14:31:00 Test Item Value Reference Range Interpretation Comments Hep Bs Ag (test code Negative *NA*(11/9/19 = Hep Bs Ag) 8:31 AM) [facility] TexasFdhfjudTPKNSOYGHZ4367-60-52 19:35:00 Test Item Value Reference Range Interpretation Comments PT (test code = PT) 12.2 s 12.0-14.7 [facility] TexasUfauzdnFUBMJBLFMA2564-91-61 19:35:00 Test Item Value Reference Range Interpretation Comments INR (test code = INR) 0.92 1 0.85-1.17 [facility] TexasFbvnuqbFNPBSZNQWZ2106-90-13 19:35:00 Test Item Value Reference Range Interpretation Comments PTT (test code = PTT) 37.1 s 22.9-35.8 [facility]2019-06-30 10:20:00 Test Item Value Reference Range Interpretation Comments eGFR (test code = eGFR) 3 [facility]2019-06-30 10:20:00 Test Item Value Reference Range Interpretation Comments Glucose Lvl (test code = Glucose Lvl) 96 70-99 [facility]2019-06-30 10:20:00 Test Item Value Reference Range Interpretation Comments BUN (test code = BUN) 68 7-22 [facility]2019-06-30 10:20:00 Test Item Value Reference Range Interpretation Comments Calcium Lvl (test code = Calcium Lvl) 8.7 8.5-10.5 [facility]2019-06-30 10:20:00 Test Item Value Reference Range Interpretation Comments AGAP (test code = AGAP) 16.7 10.0-20.0 [facility]2019-06-30 10:20:00 Test Item Value Reference Range Interpretation Comments Sodium Lvl (test code = Sodium Lvl) 131 135-145 [facility]2019-06-30 10:20:00 Test Item Value Reference Range Interpretation Comments CO2 (test code = CO2) 25 24-32 [facility]2019-06-30 10:20:00 Test Item Value Reference Range Interpretation Comments Potassium Lvl (test code = Potassium 3.7 3.5-5.1 Lvl) [facility]2019-06-30 10:20:00 Test Item Value Reference Range Interpretation Comments Chloride Lvl (test code = Chloride Lvl) 93 95-109 [facility]2019-06-30 10:20:00 Test Item Value Reference Range Interpretation Comments Creatinine Lvl (test code = Creatinine 15.20 0.50-1.40 Lvl) [facility] HospitalCARAC [id number] 14:42:00 Test Item Value Reference Range Interpretation Comments Troponin-I (test code 0.03 See_Comment [Auto mated message] The = Troponin-I) system which g enerated this result transmit emerson reference range : <=0.40. The reference r yared was not used to interpr et this result as erinn l/abnormal. [facility] HospitalGram Stain Rizsah3630-16-25 14:25:00 Test Item Value Reference Range Interpretation Comments Gram Stain Report Rare WBC's No Organisms (test code = Gram Seen Stain Report) [facility] HospitalCulture: Aspirate/Body Fluid/Jdaloi9601-77-67 14:25:00 Test Item Value Reference Range Interpretation Comments Culture: Aspirate/Body Fluid/Tissue No Growth (test code = Culture: Aspirate/Body Fluid/Tissue) [facility] [id number] 08:16:00 Test Item Value Reference Range Interpretation Comments Vitamin B12 Lvl (test code = Vitamin [phone] B12 Lvl) [facility] [id number] 08:16:00 Test Item Value Reference Range Interpretation Comments Troponin-I (test code 0.04 See_Comment [Auto mated message] The = Troponin-I) system which g enerated this result transmit emerson reference range : <=0.40. The reference r yared was not used to interpr et this result as erinn l/abnormal. [employer] [id number] 08:16:00 Test Item Value Reference Range Interpretation Comments Magnesium Lvl (test code = Magnesium 1.8 1.8-2.4 Lvl) [facility]Fair[facility] [id number] 08:16:00 Test Item Value Reference Range Interpretation Comments eGFR (test code = eGFR) 3 [facility] HospitalHealthy [employer] [employer] [id number] 08:16:00 Test Item Value Reference Range Interpretation Comments A/G Ratio (test code = A/G Ratio) 0.6 1 0.7-1.6 [facility] HospitalHealth[facility] [id number] 08:16:00 Test Item Value Reference Range Interpretation Comments B/C Ratio (test code = B/C Ratio) 4 1 6-25 [facility]2019-06-29 08:16:00 Test Item Value Reference Range Interpretation Comments Globulin (test code = Globulin) 3.4 2.7-4.2 [facility]2019-06-29 08:16:00 Test Item Value Reference Range Interpretation Comments Bili Total (test code = Bili Total) 0.4 0.2-1.3 [facility]2019-06-29 08:16:00 Test Item Value Reference Range Interpretation Comments AGAP (test code = AGAP) 18.3 10.0-20.0 [facility]2019-06-29 08:16:00 Test Item Value Reference Range Interpretation Comments Chloride Lvl (test code = Chloride Lvl) 93 95-109 [facility]2019-06-29 08:16:00 Test Item Value Reference Range Interpretation Comments CO2 (test code = CO2) 23 24-32 [facility]2019-06-29 08:16:00 Test Item Value Reference Range Interpretation Comments Calcium Lvl (test code = Calcium Lvl) 8.1 8.5-10.5 [facility]2019-06-29 08:16:00 Test Item Value Reference Range Interpretation Comments Glucose Lvl (test code = Glucose Lvl) 57 70-99 [facility]2019-06-29 08:16:00 Test Item Value Reference Range Interpretation Comments BUN (test code = BUN) 60 7-22 [facility]2019-06-29 08:16:00 Test Item Value Reference Range Interpretation Comments Sodium Lvl (test code = Sodium Lvl) 130 135-145 [facility]2019-06-29 08:16:00 Test Item Value Reference Range Interpretation Comments Creatinine Lvl (test code = Creatinine 15.90 0.50-1.40 Lvl) [facility]2019-06-29 08:16:00 Test Item Value Reference Range Interpretation Comments Potassium Lvl (test code = Potassium 4.3 3.5-5.1 Lvl) [facility]2019-06-29 08:16:00 Test Item Value Reference Range Interpretation Comments ALT (test code = ALT) 21 See_Comment [Auto mated message] The system which ge nerated this result transmit emerson reference range : <=65. The reference range was not used to interpr et this result as erinn l/abnormal. [facility]2019-06-29 08:16:00 Test Item Value Reference Range Interpretation Comments Alk Phos (test code = Alk Phos) 76 39-136 [facility]2019-06-29 08:16:00 Test Item Value Reference Range Interpretation Comments AST (test code = AST) 16 See_Comment [Auto mated message] The system which ge nerated this result transmit emerson reference range : <=37. The reference range was not used to interpr et this result as erinn l/abnormal. [facility]2019-06-29 08:16:00 Test Item Value Reference Range Interpretation Comments Total Protein (test code = Total 5.6 6.4-8.4 Protein) [facility]2019-06-29 08:16:00 Test Item Value Reference Range Interpretation Comments Albumin Lvl (test code = Albumin Lvl) 2.2 3.5-5.0 [facility] TexasRrvtjaqQTMCYYPFFJ7846-86-17 08:16:00 Test Item Value Reference Range Interpretation Comments PTT (test code = PTT) 41.5 s 22.9-35.8 [facility] TexasWhjplwtVSSLKVHTRZ7420-47-17 08:16:00 Test Item Value Reference Range Interpretation Comments PT (test code = PT) 14.4 s 12.0-14.7 [facility] TexasMnlqtxdPTMZDIKFJI7260-25-27 08:16:00 Test Item Value Reference Range Interpretation Comments INR (test code = INR) 1.14 1 0.85-1.17 [facility] TexasOqqfxpoYWOIZPWWDZ1450-72-57 08:16:00 Test Item Value Reference Range Interpretation Comments RDW (test code = RDW) 15.5 11.5-14.5 [facility] TexasFxmvjdnMUNYANJZYL3748-18-53 08:16:00 Test Item Value Reference Range Interpretation Comments Platelet (test code = Platelet) 139 133-450 [facility] TexasZfmfkjmYRHXTFQRKN9151-29-71 08:16:00 Test Item Value Reference Range Interpretation Comments MCH (test code = MCH) 28.7 pg 27.0-31.0 [facility] TexasKilwswvMOOXAVJSMH6287-01-42 08:16:00 Test Item Value Reference Range Interpretation Comments MCHC (test code = MCHC) 34.2 32.0-36.0 [facility] TexasJgtcqxnYVFMHLDJNQ4571-86-50 08:16:00 Test Item Value Reference Range Interpretation Comments MCV (test code = MCV) 84.1 80.0-94.0 [facility] TexasCigccmyCVALJHDQSY0593-88-34 08:16:00 Test Item Value Reference Range Interpretation Comments Hgb (test code = Hgb) 11.4 14.0-18.0 [facility] TexasPbyyfkuMSIEZIHCOE0365-25-43 08:16:00 Test Item Value Reference Range Interpretation Comments Hct (test code = Hct) 33.2 42.0-54.0 [facility] TexasXqvblgdSGNUFDJJBY0673-55-56 08:16:00 Test Item Value Reference Range Interpretation Comments WBC (test code = WBC) 10.2 3.7-10.4 [facility] TexasQzqmaktBZAWBREBYP6154-31-81 08:16:00 Test Item Value Reference Range Interpretation Comments RBC (test code = RBC) 3.95 4.70-6.10 [facility] TexasNvgeqtlGJWZGZQABN1800-55-82 08:16:00 Test Item Value Reference Range Interpretation Comments MPV (test code = MPV) 8.3 7.4-10.4 [facility] TexasCvjawedAQMIOCPOQA0590-35-86 08:16:00 Test Item Value Reference Range Interpretation Comments Segs (test code = Segs) 84.8 45.0-75.0 [facility] TexasSqunakpQCPOAVHVCY1524-05-55 08:16:00 Test Item Value Reference Range Interpretation Comments Basophils # (test code 0.1 See_Comment [Aut omated message] The = Basophils #) system which generated this result tra nsmitted reference range : <=0.2. The reference r yared was not used to int erpret this result as normal/abnormal . [facility] TexasDzgvexoOSLMZLLLDZ4032-12-47 08:16:00 Test Item Value Reference Range Interpretation Comments Basophils (test code = 0.5 See_Comment [Aut omated message] The Basophils) system which ge nerated this result tra nsmitted reference range : <=1.0. The reference r yared was not used to int erpret this result as normal/abnormal . [facility] TexasHbtxfdaBLTPHUWSAD4791-46-12 08:16:00 Test Item Value Reference Range Interpretation Comments Eosinophils (test code = 1.2 See_Comment [A utomated message] The Eosinophils) system which ge nerated this result tra nsmitted reference range : <=4.0. The reference r yared was not used to int erpret this result as normal/abnormal . [facility] TexasMdvkmyxFDACUQYHDD6714-80-03 08:16:00 Test Item Value Reference Range Interpretation Comments Monocytes (test code = Monocytes) 6.5 2.0-12.0 [facility] TexasWkaswsfPPQULWHMSI7485-86-35 08:16:00 Test Item Value Reference Range Interpretation Comments Lymphocytes (test code = Lymphocytes) 7.0 20.0-40.0 [facility] TexasMhyyucaEDPAYLDQGA5517-07-85 08:16:00 Test Item Value Reference Range Interpretation Comments Eosinophils # (test code 0.1 See_Comment [A utomated message] The = Eosinophils #) system whic h generated this result tra nsmitted reference range : <=0.5. The reference r yared was not used to int erpret this result as normal/abnormal . [facility] TexasOhoqzpbUKFVABNGIE0791-13-48 08:16:00 Test Item Value Reference Range Interpretation Comments Monocytes # (test code 0.7 See_Comment [Aut omated message] The = Monocytes #) system which generated this result tra nsmitted reference range : <=0.8. The reference r yared was not used to int erpret this result as normal/abnormal . [facility] TexasUfcefplLASUOJBFGL0804-81-72 08:16:00 Test Item Value Reference Range Interpretation Comments Lymphocytes # (test code = Lymphocytes 0.7 1.0-5.5 #) [facility] TexasUzhcxrfYMXOHVWVOM0374-93-89 08:16:00 Test Item Value Reference Range Interpretation Comments Neutrophils # (test code = Neutrophils 8.7 1.5-8.1 #) [facility] HospitalCHEM ZIQPY6557-38-13 04:17:00 Test Item Value Reference Range Interpretation Comments Lactic Acid Lvl (test code = Lactic 0.3 0.5-2.2 Acid Lvl) [facility] HospitalCARDIAC YLNQSNL4319-27-66 02:25:00 Test Item Value Reference Range Interpretation Comments Troponin-I (test code 0.03 See_Comment [Auto mated message] The = Troponin-I) system which g enerated this result transmit emerson reference range : <=0.40. The reference r yared was not used to interpr et this result as erinn l/abnormal. [facility] HospitalRmozgfsTTTDHJ4165-76-70 02:25:00 Test Item Value Reference Range Interpretation Comments CHD Risk (test code = CHD Risk) 3.10 1 4.00-7.30 [facility] HospitalTxucbmiMKAFAC9438-56-90 02:25:00 Test Item Value Reference Range Interpretation Comments VLDL (test code = VLDL) 21 1 [facility] HospitalMbfthzyFJEXAE4557-36-14 02:25:00 Test Item Value Reference Range Interpretation Comments HDL (test code = HDL) 58 [facility] HospitalFcmixcaUDELFS8972-99-39 02:25:00 Test Item Value Reference Range Interpretation Comments LDL (Calculated) (test code = LDL 101 (Calculated)) [facility] HospitalBcuriasJSIKCI4471-43-37 02:25:00 Test Item Value Reference Range Interpretation Comments Chol (test code = Chol) 180 [facility] HospitalTtznmfgURMHNH2763-41-99 02:25:00 Test Item Value Reference Range Interpretation Comments Trig (test code = Trig) 103 [facility] QJIDLDGJX7160-57-90 02:25:00 Test Item Value Reference Range Interpretation Comments Hgb A1C (test code = Hgb A1C) 4.0 [facility] HospitalCHEM FDECY2249-82-04 12:41:00 Test Item Value Reference Range Interpretation Comments Phosphorus (test code = Phosphorus) 6.1 2.5-4.5 [facility]DlodprxQDNQNWCVMQOZ1212-98-80 12:41:00 Test Item Value Reference Range Interpretation Comments AGAP (test code = AGAP) 14.8 10.0-20.0 [facility]ielqvaXMHOFTYFWELG0335-66-01 12:41:00 Test Item Value Reference Range Interpretation Comments eGFR (test code = eGFR) 4 [facility]GhqsxksUEWYZHWASETA7096-06-88 12:41:00 Test Item Value Reference Range Interpretation Comments CO2 (test code = CO2) 27 24-32 [facility] HospitalFxpfttzURDFYJXAYDRV3230-38-98 12:41:00 Test Item Value Reference Range Interpretation Comments Calcium Lvl (test code = Calcium Lvl) 7.9 8.5-10.5 [facility] HospitalOfdpiimXIGXZANMVKGW0462-38-13 12:41:00 Test Item Value Reference Range Interpretation Comments Creatinine Lvl (test code = Creatinine 12.90 0.50-1.40 Lvl) [facility] HospitalIndunokVPNRZMFIFXYN4184-90-30 12:41:00 Test Item Value Reference Range Interpretation Comments BUN (test code = BUN) 60 7-22 [facility]RpjiouoVFYZSYXHKMFQ6504-73-80 12:41:00 Test Item Value Reference Range Interpretation Comments Sodium Lvl (test code = Sodium Lvl) 139 135-145 [facility]FbcmjykZWJVXMJRWWIG6656-11-38 12:41:00 Test Item Value Reference Range Interpretation Comments Glucose Lvl (test code = Glucose Lvl) 93 70-99 [facility]UanvievJUFQBANOYPCL0327-99-21 12:41:00 Test Item Value Reference Range Interpretation Comments Chloride Lvl (test code = Chloride Lvl) 102 95-109 [facility]DubkppiHVJYRLWWHAEP4414-15-93 12:41:00 Test Item Value Reference Range Interpretation Comments Potassium Lvl (test code = Potassium 4.8 3.5-5.1 Lvl) [facility] TexasBmjpguaCIYWPJTLLA8836-74-01 12:41:00 Test Item Value Reference Range Interpretation Comments MCHC (test code = MCHC) 35.3 32.0-36.0 [facility] TexasMikhwcfEVSNUPXZQU7861-24-03 12:41:00 Test Item Value Reference Range Interpretation Comments Hgb (test code = Hgb) 7.8 14.0-18.0 [facility] TexasGygxpiuRWOINWWVMH4673-32-50 12:41:00 Test Item Value Reference Range Interpretation Comments Hct (test code = Hct) 22.0 42.0-54.0 [facility] TexasHqpojjwYJEYIYINKN6028-67-65 12:41:00 Test Item Value Reference Range Interpretation Comments RBC (test code = RBC) 2.68 4.70-6.10 [facility] TexasZatcpphEUDDXREEVP7545-60-32 12:41:00 Test Item Value Reference Range Interpretation Comments WBC (test code = WBC) 4.4 3.7-10.4 [facility] TexasFzlxlddNNOIXCXIID7871-23-95 12:41:00 Test Item Value Reference Range Interpretation Comments RDW (test code = RDW) 14.5 11.5-14.5 [facility] TexasUzggmuxFQFDBGFOLJ6839-40-39 12:41:00 Test Item Value Reference Range Interpretation Comments MCV (test code = MCV) 82.1 80.0-94.0 [facility] TexasYvyrciuRPARLESJXQ3304-51-24 12:41:00 Test Item Value Reference Range Interpretation Comments MCH (test code = MCH) 29.0 pg 27.0-31.0 [facility] TexasLvnnjbsSUKJQZOKHC3964-09-92 12:41:00 Test Item Value Reference Range Interpretation Comments Platelet (test code = Platelet) 128 133-450 [facility] TexasHqzkjsnBVCCONDSVX8120-26-74 12:41:00 Test Item Value Reference Range Interpretation Comments MPV (test code = MPV) 7.3 7.4-10.4 [facility] TexasUgnqfzjRXSBRUMYHX6623-51-93 12:41:00 Test Item Value Reference Range Interpretation Comments Monocytes # (test code 0.4 See_Comment [Aut omated message] The = Monocytes #) system which generated this result tra nsmitted reference range : <=0.8. The reference r yared was not used to int erpret this result as normal/abnormal . [facility] TexasGdutyvaPIHLQLLYQH9389-78-40 12:41:00 Test Item Value Reference Range Interpretation Comments Eosinophils # (test code 0.2 See_Comment [A utomated message] The = Eosinophils #) system whic h generated this result tra nsmitted reference range : <=0.5. The reference r yared was not used to int erpret this result as normal/abnormal . [facility] TexasMrzaqbzQTWPSNXGQR2227-30-11 12:41:00 Test Item Value Reference Range Interpretation Comments Monocytes (test code = Monocytes) 9.7 2.0-12.0 [facility] TexasItjtdbnSPQRBTWWEK3013-14-48 12:41:00 Test Item Value Reference Range Interpretation Comments Eosinophils (test code = 3.7 See_Comment [A utomated message] The Eosinophils) system which ge nerated this result tra nsmitted reference range : <=4.0. The reference r yared was not used to int erpret this result as normal/abnormal . [facility] TexasNnxgbtaGXECNLLADW5122-48-57 12:41:00 Test Item Value Reference Range Interpretation Comments Basophils (test code = 0.8 See_Comment [Aut omated message] The Basophils) system which ge nerated this result tra nsmitted reference range : <=1.0. The reference r yared was not used to int erpret this result as normal/abnormal . [facility] TexasHhkejdmONMIRAVARV2772-06-25 12:41:00 Test Item Value Reference Range Interpretation Comments Neutrophils # (test code = Neutrophils 3.0 1.5-8.1 #) [facility] TexasNywnqptCRQLVSZANZ4972-98-27 12:41:00 Test Item Value Reference Range Interpretation Comments Lymphocytes # (test code = Lymphocytes 0.8 1.0-5.5 #) [facility] TexasUdmxpakUWMNHTKAKD6688-77-63 12:41:00 Test Item Value Reference Range Interpretation Comments Segs (test code = Segs) 67.6 45.0-75.0 [facility] TexasLkpklukMKVIEESJND6021-89-36 12:41:00 Test Item Value Reference Range Interpretation Comments Lymphocytes (test code = Lymphocytes) 18.2 20.0-40.0 [facility]2018-10-14 11:17:00 Test Item Value Reference Range Interpretation Comments Magnesium Lvl (test code = Magnesium 2.5 1.8-2.4 Lvl) [facility]2018-10-14 11:17:00 Test Item Value Reference Range Interpretation Comments Phosphorus (test code = Phosphorus) 8.3 2.5-4.5 [facility]BcrembzRSQBOAPPZCED9338-22-34 11:17:00 Test Item Value Reference Range Interpretation Comments CO2 (test code = CO2) 22 24-32 [facility]RjbxmfcPRZMTKAYRIQK4662-39-62 11:17:00 Test Item Value Reference Range Interpretation Comments Calcium Lvl (test code = Calcium Lvl) 7.5 8.5-10.5 [facility] OaklandYvghyhdQGIFBZBDYGFM7002-27-09 11:17:00 Test Item Value Reference Range Interpretation Comments Chloride Lvl (test code = Chloride Lvl) 98 95-109 [facility]OpkjitdLNKMCRVVQNCK4410-00-54 11:17:00 Test Item Value Reference Range Interpretation Comments eGFR (test code = eGFR) 2 [facility] OaklandRhbivfyFDKHPPCALSPN9148-53-11 11:17:00 Test Item Value Reference Range Interpretation Comments Creatinine Lvl (test code = Creatinine 19.20 0.50-1.40 Lvl) [facility] OaklandZkipfawQMAZAZCYBNKR0800-19-82 11:17:00 Test Item Value Reference Range Interpretation Comments BUN (test code = BUN) 97 7-22 [facility] OaklandOtdrspzEKEOUCEBYOHR8896-77-22 11:17:00 Test Item Value Reference Range Interpretation Comments Potassium Lvl (test code = Potassium 4.7 3.5-5.1 Lvl) [facility]bstdpvVFXCPJFVCAPG4594[facility]61 11:17:00 Test Item Value Reference Range Interpretation Comments Sodium Lvl (test code = Sodium Lvl) 135 135-145 [facility] OaklandApylentSDBZUYFJZOGU6264-63-35 11:17:00 Test Item Value Reference Range Interpretation Comments Glucose Lvl (test code = Glucose Lvl) 82 70-99 [facility]LcgmjdvLDDBNZTFAKMQ5505-97-04 11:17:00 Test Item Value Reference Range Interpretation Comments AGAP (test code = AGAP) 19.7 10.0-20.0 [facility] TexasWhbcsdyGRFHKGCDPG5286-44-84 11:17:00 Test Item Value Reference Range Interpretation Comments WBC (test code = WBC) 4.9 3.7-10.4 [facility] TexasQfdxrjbZYPXXIYAJM4162-21-57 11:17:00 Test Item Value Reference Range Interpretation Comments RBC (test code = RBC) 2.85 4.70-6.10 [facility] TexasYrxkmphHOQRXCWMXC2766-07-24 11:17:00 Test Item Value Reference Range Interpretation Comments MCV (test code = MCV) 82.3 80.0-94.0 [facility] TexasYzjbjpeUTZBZWDHKJ8835-91-67 11:17:00 Test Item Value Reference Range Interpretation Comments MCH (test code = MCH) 28.8 pg 27.0-31.0 [facility] TexasPrleplwBSNTDOFLYM7596-46-70 11:17:00 Test Item Value Reference Range Interpretation Comments Hgb (test code = Hgb) 8.2 14.0-18.0 [facility] TexasHpgxkkvBMGFZAFDXN1941-54-75 11:17:00 Test Item Value Reference Range Interpretation Comments Hct (test code = Hct) 23.4 42.0-54.0 [facility] TexasTvujuxmKJAMVOHDBZ9270-82-77 11:17:00 Test Item Value Reference Range Interpretation Comments RDW (test code = RDW) 15.0 11.5-14.5 [facility] TexasFurhmiiOVYKXBWOIS2700-58-57 11:17:00 Test Item Value Reference Range Interpretation Comments MCHC (test code = MCHC) 35.0 32.0-36.0 [facility] TexasOckkoveISRRTVKVXE4374-43-96 11:17:00 Test Item Value Reference Range Interpretation Comments MPV (test code = MPV) 7.4 7.4-10.4 [facility] TexasMmkhnrzDCZNYPBOHX1881-59-34 11:17:00 Test Item Value Reference Range Interpretation Comments Platelet (test code = Platelet) 140 133-450 [facility] TexasZxzratfTPKOJUQMHH1287-39-95 11:17:00 Test Item Value Reference Range Interpretation Comments Lymphocytes (test code = Lymphocytes) 20.3 20.0-40.0 [facility] TexasPyasipcDCHKCHXIMT2283-28-67 11:17:00 Test Item Value Reference Range Interpretation Comments Basophils (test code = 1.0 See_Comment [Aut omated message] The Basophils) system which ge nerated this result tra nsmitted reference range : <=1.0. The reference r yared was not used to int erpret this result as normal/abnormal . [facility] TexasEovrbmfVXEEVSKGGL1770-02-19 11:17:00 Test Item Value Reference Range Interpretation Comments Segs (test code = Segs) 67.1 45.0-75.0 [facility] TexasLmatlprPVDIJMRMKG7641-50-76 11:17:00 Test Item Value Reference Range Interpretation Comments Neutrophils # (test code = Neutrophils 3.3 1.5-8.1 #) [facility] TexasQrbpuvfUMPFTUZMHU1521-96-15 11:17:00 Test Item Value Reference Range Interpretation Comments Eosinophils (test code = 3.1 See_Comment [A utomated message] The Eosinophils) system which ge nerated this result tra nsmitted reference range : <=4.0. The reference r yared was not used to int erpret this result as normal/abnormal . [facility] TexasUdqemvmWRQXFRMQKQ8626-10-67 11:17:00 Test Item Value Reference Range Interpretation Comments Monocytes (test code = Monocytes) 8.5 2.0-12.0 [facility] TexasNjxdhedETGIVIALPG7024-01-81 11:17:00 Test Item Value Reference Range Interpretation Comments Monocytes # (test code 0.4 See_Comment [Aut omated message] The = Monocytes #) system which generated this result tra nsmitted reference range : <=0.8. The reference r yared was not used to int erpret this result as normal/abnormal . [facility] TexasEozhieoLWBBMDIKUD2747-54-69 11:17:00 Test Item Value Reference Range Interpretation Comments Lymphocytes # (test code = Lymphocytes 1.0 1.0-5.5 #) [facility] TexasMbqdhuzOQELDYBAAL9203-38-32 11:17:00 Test Item Value Reference Range Interpretation Comments Eosinophils # (test code 0.1 See_Comment [A utomated message] The = Eosinophils #) system [facility] h generated this result tra nsmitted reference range : <=0.5. The reference r yared was not used to int erpret this result as normal/abnormal . [employer]EoyqzwtWKETBGSQWU6731-70-60 11:17:00 Test Item Value Reference Range Interpretation Comments Hep Bs Ag (test code Negative *NA*(07/22/18 = Hep Bs Ag) 6:17 AM) [facility] [id number] 02:46:00 Test Item Value Reference Range Interpretation Comments proBNP (test code = 32086 See_Comment [Automa emerson message] The proBNP) system which ge nerated this result tra nsmitted reference range : <=125. The reference r yared was not used to int erpret this result as erinn l/abnormal. [employer] [facility]2018-10-14 02:46:00 Test Item Value Reference Range Interpretation Comments Troponin-I (test code no gt See_Comment [Auto mated message] The = Troponin-I) system which g enerated this result transmit emerson reference range : <=0.40. The reference r yared was not used to interpr et this result as erinn l/abnormal. [employer]2018-10-14 02:46:00 Test Item Value Reference Range Interpretation Comments Total CK (test code = Total CK) 91 12-191 [employer] [employer] [id number] 02:46:00 Test Item Value Reference Range Interpretation Comments Lipase Lvl (test code = Lipase Lvl) 95 73-393 [place] [employer]2018-10-14 02:46:00 Test Item Value Reference Range Interpretation Comments Globulin (test code = Globulin) 3.2 2.7-4.2 [place] [employer]2018-10-14 02:46:00 Test Item Value Reference Range Interpretation Comments A/G Ratio (test code = A/G Ratio) 0.9 1 0.7-1.6 [employer] [id number] 02:46:00 Test Item Value Reference Range Interpretation Comments B/C Ratio (test code = B/C Ratio) 5 1 6-25 [employer]2018-10-14 02:46:00 Test Item Value Reference Range Interpretation Comments AGAP (test code = AGAP) 18.7 10.0-20.0 [employer]2018-10-14 02:46:00 Test Item Value Reference Range Interpretation Comments eGFR (test code = eGFR) 2 [facility]2018-10-14 02:46:00 Test Item Value Reference Range Interpretation Comments Calcium Lvl (test code = Calcium Lvl) 7.6 8.5-10.5 [facility]2018-10-14 02:46:00 Test Item Value Reference Range Interpretation Comments CO2 (test code = CO2) 24 24-32 [facility]2018-10-14 02:46:00 Test Item Value Reference Range Interpretation Comments Chloride Lvl (test code = Chloride Lvl) 98 95-109 [place] 344898-10-14 02:46:00 Test Item Value Reference Range Interpretation Comments Potassium Lvl (test code = Potassium 4.7 3.5-5.1 Lvl) [facility]2018-10-14 02:46:00 Test Item Value Reference Range Interpretation Comments Sodium Lvl (test code = Sodium Lvl) 136 135-145 [facility]2018-10-14 02:46:00 Test Item Value Reference Range Interpretation Comments Albumin Lvl (test code = Albumin Lvl) 2.8 3.5-5.0 [facility]2018-10-14 02:46:00 Test Item Value Reference Range Interpretation Comments ALT (test code = ALT) 13 See_Comment [Auto mated message] The system which ge nerated this result transmit emerson reference range : <=65. The reference range was not used to interpr et this result as erinn l/abnormal. [facility]2018-10-14 02:46:00 Test Item Value Reference Range Interpretation Comments AST (test code = AST) 9 See_Comment [Auto mated message] The system which ge nerated this result transmit emerson reference range : <=37. The reference range was not used to interpr et this result as erinn l/abnormal. [facility]2018-10-14 02:46:00 Test Item Value Reference Range Interpretation Comments Alk Phos (test code = Alk Phos) 57 39-136 [facility]2018-10-14 02:46:00 Test Item Value Reference Range Interpretation Comments Total Protein (test code = Total 6.0 6.4-8.4 Protein) [facility]2018-10-14 02:46:00 Test Item Value Reference Range Interpretation Comments Bili Total (test code = Bili Total) 0.4 0.2-1.3 [facility]2018-10-14 02:46:00 Test Item Value Reference Range Interpretation Comments Creatinine Lvl (test code = Creatinine 18.60 0.50-1.40 Lvl) [facility]2018-10-14 02:46:00 Test Item Value Reference Range Interpretation Comments Glucose Lvl (test code = Glucose Lvl) 89 70-99 [facility]2018-10-14 02:46:00 Test Item Value Reference Range Interpretation Comments BUN (test code = BUN) 95 7-22 [facility] TexasCsnmdmnWNXNEBFJKU4514-10-75 02:46:00 Test Item Value Reference Range Interpretation Comments Segs (test code = Segs) 66.2 45.0-75.0 [place] 926218-10-14 02:46:00 Test Item Value Reference Range Interpretation Comments Lymphocytes (test code = Lymphocytes) 21.4 20.0-40.0 [facility] TexasNsfnuooOHLPALOFAU1444-44-16 02:46:00 Test Item Value Reference Range Interpretation Comments Monocytes (test code = Monocytes) 7.7 2.0-12.0 [facility] TexasMjnctzyMZKOLICOKV8761-37-28 02:46:00 Test Item Value Reference Range Interpretation Comments Lymphocytes # (test code = Lymphocytes 0.9 1.0-5.5 #) [place] 926218-10-14 02:46:00 Test Item Value Reference Range Interpretation Comments Basophils (test code = 1.2 See_Comment [Aut omated message] The Basophils) system which ge nerated this result tra nsmitted reference range : <=1.0. The reference r yared was not used to int erpret this result as normal/abnormal . [facility] TexasGkxxxveTNMEHSYLHI0869-52-63 02:46:00 Test Item Value Reference Range Interpretation Comments Monocytes # (test code 0.3 See_Comment [Aut omated message] The = Monocytes #) system which generated this result tra nsmitted reference range : <=0.8. The reference r yared was not used to int erpret this result as normal/abnormal . [place] 926218-10-14 02:46:00 Test Item Value Reference Range Interpretation Comments Eosinophils # (test code 0.1 See_Comment [A utomated message] The = Eosinophils #) system whic h generated this result tra nsmitted reference range : <=0.5. The reference r yared was not used to int erpret this result as normal/abnormal . [facility] TexasWxtxhxoDJUCLIRLXN9888-62-05 02:46:00 Test Item Value Reference Range Interpretation Comments Neutrophils # (test code = Neutrophils 2.7 1.5-8.1 #) [facility] TexasNcqqhinVTFBAAZZTJ1477-60-21 02:46:00 Test Item Value Reference Range Interpretation Comments Eosinophils (test code = 3.5 See_Comment [A utomated message] The Eosinophils) system which ge nerated this result tra nsmitted reference range : <=4.0. The reference r yared was not used to int erpret this result as normal/abnormal . [facility] TexasSjpwcjxUXXVVIERXN3504-43-44 02:46:00 Test Item Value Reference Range Interpretation Comments PT (test code = PT) 14.4 s 12.0-14.7 [facility] TexasLibiqzbGPIGZRWXMF6329-94-21 02:46:00 Test Item Value Reference Range Interpretation Comments INR (test code = INR) 1.12 1 0.85-1.17 [facility] TexasXccjexaQFNZWQKCYX1636-45-48 02:46:00 Test Item Value Reference Range Interpretation Comments PTT (test code = PTT) 37.1 s 22.9-35.8 [facility] TexasZzxrupxGKBAQATBWY9744-42-81 02:46:00 Test Item Value Reference Range Interpretation Comments RDW (test code = RDW) 14.8 11.5-14.5 [facility] TexasXwdatagXNOUYDHMML3730-92-91 02:46:00 Test Item Value Reference Range Interpretation Comments Platelet (test code = Platelet) 143 133-450 [facility] TexasNriibovAUJHKATGQC7918-90-58 02:46:00 Test Item Value Reference Range Interpretation Comments MPV (test code = MPV) 7.6 7.4-10.4 [facility] TexasGqiwxdcTXIVOQKLUL8878-27-34 02:46:00 Test Item Value Reference Range Interpretation Comments RBC (test code = RBC) 2.83 4.70-6.10 [facility] TexasFkrohybFIRJNQKDZC8375-01-81 02:46:00 Test Item Value Reference Range Interpretation Comments WBC (test code = WBC) 4.1 3.7-10.4 [facility] TexasWukkwenTFRLFYVPRD9704-17-48 02:46:00 Test Item Value Reference Range Interpretation Comments MCHC (test code = MCHC) 35.2 32.0-36.0 [facility] TexasAmzwhfoHHIGRMKPZG1242-29-25 02:46:00 Test Item Value Reference Range Interpretation Comments MCH (test code = MCH) 28.8 pg 27.0-31.0 [facility] TexasXlidrotHXNRYWIAMN5984-37-75 02:46:00 Test Item Value Reference Range Interpretation Comments Hgb (test code = Hgb) 8.1 14.0-18.0 [facility] TexasKfwdotsKMAMUZQCWG2668-04-48 02:46:00 Test Item Value Reference Range Interpretation Comments MCV (test code = MCV) 81.9 80.0-94.0 [facility] TexasHnrrckzENRGQWRIJD4347-47-80 02:46:00 Test Item Value Reference Range Interpretation Comments Hct (test code = Hct) 23.2 42.0-54.0 [facility]2018-10-12 22:52:00 Test Item Value Reference Range Interpretation Comments BUN (test code = BUN) 86 7-22 [facility]2018-10-12 22:52:00 Test Item Value Reference Range Interpretation Comments Chloride Lvl (test code = Chloride Lvl) 97 95-109 [facility]2018-10-12 22:52:00 Test Item Value Reference Range Interpretation Comments Potassium Lvl (test code = Potassium 5.2 3.5-5.1 Lvl) [facility]2018-10-12 22:52:00 Test Item Value Reference Range Interpretation Comments Sodium Lvl (test code = Sodium Lvl) 135 135-145 [facility]2018-10-12 22:52:00 Test Item Value Reference Range Interpretation Comments Creatinine Lvl (test code = Creatinine 17.30 0.50-1.40 Lvl) [facility]2018-10-12 22:52:00 Test Item Value Reference Range Interpretation Comments Glucose Lvl (test code = Glucose Lvl) 98 70-99 [facility]2018-10-12 22:52:00 Test Item Value Reference Range Interpretation Comments eGFR (test code = eGFR) 3 [facility]2018-10-12 22:52:00 Test Item Value Reference Range Interpretation Comments Alk Phos (test code = Alk Phos) 70 39-136 [facility]atroCRITICAL ACCESS HOSPITALUZVCP9709-79-57 22:52:00 Test Item Value Reference Range Interpretation Comments AST (test code = AST) 10 See_Comment [Auto mated message] The system which ge nerated this result transmit emerson reference range : <=37. The reference range was not used to interpr et this result as erinn l/abnormal. [facility] TeatroCRITICAL ACCESS HOSPITALMFHIJ2975-05-45 22:52:00 Test Item Value Reference Range Interpretation Comments Bili Total (test code = Bili Total) 0.4 0.2-1.3 [facility]2018-10-12 22:52:00 Test Item Value Reference Range Interpretation Comments Total Protein (test code = Total 6.8 6.4-8.4 Protein) [facility]2018-10-12 22:52:00 Test Item Value Reference Range Interpretation Comments Calcium Lvl (test code = Calcium Lvl) 8.1 8.5-10.5 [facility]Fair[facility] Company [id number] 22:52:00 Test Item Value Reference Range Interpretation Comments CO2 (test code = CO2) 24 24-32 [facility] [id number] 22:52:00 Test Item Value Reference Range Interpretation Comments ALT (test code = ALT) 19 See_Comment [Auto mated message] The system which ge nerated this result transmit emerson reference range : <=65. The reference range was not used to interpr et this result as erinn l/abnormal. [facility]Fair[facility] [id number] 22:52:00 Test Item Value Reference Range Interpretation Comments Albumin Lvl (test code = Albumin Lvl) 3.3 3.5-5.0 [facility]Fair[facility] [id number] 22:52:00 Test Item Value Reference Range Interpretation Comments A/G Ratio (test code = A/G Ratio) 0.9 1 0.7-1.6 [facility]2018-10-12 22:52:00 Test Item Value Reference Range Interpretation Comments AGAP (test code = AGAP) 19.2 10.0-20.0 [facility]2018-10-12 22:52:00 Test Item Value Reference Range Interpretation Comments Globulin (test code = Globulin) 3.5 2.7-4.2 [facility]2018-10-12 22:52:00 Test Item Value Reference Range Interpretation Comments B/C Ratio (test code = B/C Ratio) 5 1 6-25 [facility] TexasXwqbfjxSMOHJOLDRO2832-58-92 22:52:00 Test Item Value Reference Range Interpretation Comments Platelet (test code = Platelet) 184 133-450 [facility] TexasJrxxaheJCNFYCEUUH3059-63-66 22:52:00 Test Item Value Reference Range Interpretation Comments MPV (test code = MPV) 6.8 7.4-10.4 [facility] TexasQxbjgcaSUGMBVJVIO6986-14-45 22:52:00 Test Item Value Reference Range Interpretation Comments MCHC (test code = MCHC) 35.4 32.0-36.0 [facility] TexasBdyzwmjICNFTYZASV5553-92-04 22:52:00 Test Item Value Reference Range Interpretation Comments RDW (test code = RDW) 15.1 11.5-14.5 [facility] TexasXyeoosmILIASRVFHA4912-52-51 22:52:00 Test Item Value Reference Range Interpretation Comments Hct (test code = Hct) 26.1 42.0-54.0 [facility] TexasQkifcsjMYNUMAXVKL1568-42-20 22:52:00 Test Item Value Reference Range Interpretation Comments MCV (test code = MCV) 81.4 80.0-94.0 [facility] TexasLruujrqMFVUFAVWDG1463-03-78 22:52:00 Test Item Value Reference Range Interpretation Comments MCH (test code = MCH) 28.8 pg 27.0-31.0 [facility] TexasGuobsosSOJWMFSWHP2198-26-94 22:52:00 Test Item Value Reference Range Interpretation Comments WBC (test code = WBC) 5.4 3.7-10.4 [facility] TexasRthtumqDGSZMHVZQC8535-56-02 22:52:00 Test Item Value Reference Range Interpretation Comments RBC (test code = RBC) 3.20 4.70-6.10 [facility] TexasVnkbnhxCGLFHVRQSN2194-16-54 22:52:00 Test Item Value Reference Range Interpretation Comments Hgb (test code = Hgb) 9.2 14.0-18.0 [facility] TexasUgbhcsqGCDDOSVRAN9396-08-34 22:52:00 Test Item Value Reference Range Interpretation Comments Segs (test code = Segs) 74.0 45.0-75.0 [facility] TexasIcowjvbQJUHEAAGMW3042-20-90 22:52:00 Test Item Value Reference Range Interpretation Comments Lymphocytes (test code = Lymphocytes) 15.5 20.0-40.0 [facility] TexasYavqlazRMTWDSFNWI3821-53-55 22:52:00 Test Item Value Reference Range Interpretation Comments Monocytes (test code = Monocytes) 6.7 2.0-12.0 [facility] TexasEaeoljbZWGBBBEYVJ0512-93-01 22:52:00 Test Item Value Reference Range Interpretation Comments Eosinophils (test code = 2.8 See_Comment [A utomated message] The Eosinophils) system which ge nerated this result tra nsmitted reference range : <=4.0. The reference r yared was not used to int erpret this result as normal/abnormal . [facility] TexasRukzineNLNEIGIZGN2086-26-26 22:52:00 Test Item Value Reference Range Interpretation Comments Basophils (test code = 1.0 See_Comment [Aut omated message] The Basophils) system which ge nerated this result tra nsmitted reference range : <=1.0. The reference r yared was not used to int erpret this result as normal/abnormal . [facility] TexasTvxrwzqGKDARMNCAM7692-73-29 22:52:00 Test Item Value Reference Range Interpretation Comments Neutrophils # (test code = Neutrophils 4.0 1.5-8.1 #) [facility] TexasOlepnwgAKDCUFZFTA5078-42-79 22:52:00 Test Item Value Reference Range Interpretation Comments Basophils # (test code 0.1 See_Comment [Aut omated message] The = Basophils #) system which generated this result tra nsmitted reference range : <=0.2. The reference r yared was not used to int erpret this result as normal/abnormal . [facility] TexasXklavauVREWKFBLPP3660-78-13 22:52:00 Test Item Value Reference Range Interpretation Comments Eosinophils # (test code 0.2 See_Comment [A utomated message] The = Eosinophils #) system whic h generated this result tra nsmitted reference range : <=0.5. The reference r yared was not used to int erpret this result as normal/abnormal . [facility] TexasIafqzxkFFEANLGXYE3456-20-73 22:52:00 Test Item Value Reference Range Interpretation Comments Lymphocytes # (test code = Lymphocytes 0.8 1.0-5.5 #) [facility] TexasAhxlbfwBBMCYARNFM7731-48-07 22:52:00 Test Item Value Reference Range Interpretation Comments Monocytes # (test code 0.4 See_Comment [Aut omated message] The = Monocytes #) system which generated this result tra nsmitted reference range : <=0.8. The reference r yared was not used to int erpret this result as normal/abnormal . [facility] [id number] 15:54:00 Test Item Value Reference Range Interpretation Comments Test Name (test code = HLA TYPING RESULTS Test Name) [facility] BANK RTOCVEY1675-09-20 15:20:00 Test Item Value Reference Range Interpretation Comments ABO/RH Confirm (test code = ABO/RH O POS Confirm) [facility] AND [id number] 15:20:00 Test Item Value Reference Range Interpretation Comments UA Renal Epi (test code = UA Renal Epi) RARE [facility] AND [id number] 15:20:00 Test Item Value Reference Range Interpretation Comments UA Urobilinogen (test code = UA <=1.0 mg/dL 0.1-1.0 Urobilinogen) [facility] AND [id number] 15:20:00 Test Item Value Reference Range Interpretation Comments UA Glucose (test code = UA Glucose) 100mg/dL [facility] AND [id number] 15:20:00 Test Item Value Reference Range Interpretation Comments UA Sq Epi (test code = UA Sq Moderate /LPF Epi) [facility] AND [id number] 15:20:00 Test Item Value Reference Range Interpretation Comments UA Leuk Est (test code Small *ABN*(05/23/18 = UA Leuk Est) 10:20 AM) [facility] AND [id number] 15:20:00 Test Item Value Reference Range Interpretation Comments UA Ketones (test code = UA Negative mg/dL Ketones) [facility] AND [id number] 15:20:00 Test Item Value Reference Range Interpretation Comments UA RBC (test code = no gt See_Comment [Automa emerson message] The UA RBC) system which ge nerated this result transmit emerson reference range : <=2. The reference range was not used to interpr et this result as erinn l/abnormal. [facility] AND [id number] 15:20:00 Test Item Value Reference Range Interpretation Comments UA WBC (test code = 9 See_Comment [Automa emerson message] The UA WBC) system which ge nerated this result transmit emerson reference range : <=5. The reference range was not used to interpr et this result as erinn l/abnormal. [facility] [id number] 15:20:00 Test Item Value Reference Range Interpretation Comments UA Nitrite (test code Negative (05/23/18 10:20 = UA Nitrite) AM) [facility] [id number] 15:20:00 Test Item Value Reference Range Interpretation Comments UA Blood (test code = Trace *ABN*(05/23/18 UA Blood) 10:20 AM) [facility] [id number] 15:20:00 Test Item Value Reference Range Interpretation Comments UA Bili (test code = Negative *NA*(05/23/18 UA Bili) 10:20 AM) [place] [facility] AND [id number] 15:20:00 Test Item Value Reference Range Interpretation Comments UA Mucus (test code = UA Mucus) Few /LPF [facility] [id number] 15:20:00 Test Item Value Reference Range Interpretation Comments UA Protein (test code = UA >=300 mg/dL Protein) [facility] [id number] 15:20:00 Test Item Value Reference Range Interpretation Comments UA pH (test code = UA pH) 6.5 1 5.0-8.0 [facility] [id number] 15:20:00 Test Item Value Reference Range Interpretation Comments UA Spec Grav (test code = UA Spec 1.008 1 Grav) [facility] [id number] 15:20:00 Test Item Value Reference Range Interpretation Comments UA Turbidity (test code Slight *ABN*(05/23/18 = UA Turbidity) 10:20 AM) [facility] [id number] 15:20:00 Test Item Value Reference Range Interpretation Comments UA Color (test code = Yellow *NA*(05/23/18 UA Color) 10:20 AM) [facility] [id number] 15:20:00 Test Item Value Reference Range Interpretation Comments U Microalb (test code = U Microalb) 2940.0 [facility] [id number] 15:20:00 Test Item Value Reference Range Interpretation Comments U Prot/Creat (test code = U 6.61 1 Prot/Creat) [facility]2018-08-15 15:20:00 Test Item Value Reference Range Interpretation Comments U Creatinine (test code = U Creatinine) 55.00 [facility]2018-08-15 15:20:00 Test Item Value Reference Range Interpretation Comments U Protein (test code = U Protein) 363.8 [facility] [id number] 14:55:00 Test Item Value Reference Range Interpretation Comments % Satur Fe (test code = % Satur Fe) 35 12-57 [facility]2018-08-15 14:55:00 Test Item Value Reference Range Interpretation Comments UIBC (test code = UIBC) 179 110-370 [facility]2018-08-15 14:55:00 Test Item Value Reference Range Interpretation Comments TIBC (test code = TIBC) 276 228-428 [facility]2018-08-15 14:55:00 Test Item Value Reference Range Interpretation Comments Iron (test code = Iron) 97 45-160 [facility]2018-08-15 14:55:00 Test Item Value Reference Range Interpretation Comments Ferritin Lvl (test code = Ferritin Lvl) 292 22-275 [facility] [id number] 14:55:00 Test Item Value Reference Range Interpretation Comments OP ABORh Int (test code = OP ABORh Int) O POS [facility] [id number] 14:55:00 Test Item Value Reference Range Interpretation Comments Phosphorus (test code = Phosphorus) 8.0 2.5-4.5 [facility]2018-08-15 14:55:00 Test Item Value Reference Range Interpretation Comments Magnesium Lvl (test code = Magnesium 2.5 1.8-2.4 Lvl) [facility]2018-08-15 14:55:00 Test Item Value Reference Range Interpretation Comments Vitamin D, 25-OH, Total (test code = 26.3 30.0-100.0 Vitamin D, 25-OH, Total) [facility]2018-08-15 14:55:00 Test Item Value Reference Range Interpretation Comments Uric Acid (test code = Uric Acid) 3.5 3.8-8.0 [facility]2018-08-15 14:55:00 Test Item Value Reference Range Interpretation Comments eGFR (test code = eGFR) 7 [facility]2018-08-15 14:55:00 Test Item Value Reference Range Interpretation Comments Alk Phos (test code = Alk Phos) 80 39-136 [facility]2018-08-15 14:55:00 Test Item Value Reference Range Interpretation Comments Bili Total (test code = Bili Total) 0.4 0.2-1.3 [facility]2018-08-15 14:55:00 Test Item Value Reference Range Interpretation Comments Albumin Lvl (test code = Albumin Lvl) 4.3 3.5-5.0 [facility]2018-08-15 14:55:00 Test Item Value Reference Range Interpretation Comments ALT (test code = ALT) 22 See_Comment [Auto mated message] The system which ge nerated this result transmit emerson reference range : <=65. The reference range was not used to interpr et this result as erinn l/abnormal. [facility]2018-08-15 14:55:00 Test Item Value Reference Range Interpretation Comments Calcium Lvl (test code = Calcium Lvl) 8.8 8.5-10.5 [facility]2018-08-15 14:55:00 Test Item Value Reference Range Interpretation Comments Total Protein (test code = Total 8.1 6.4-8.4 Protein) [facility]2018-08-15 14:55:00 Test Item Value Reference Range Interpretation Comments AST (test code = AST) 12 See_Comment [Auto mated message] The system which ge nerated this result transmit emerson reference range : <=37. The reference range was not used to interpr et this result as erinn l/abnormal. [facility]2018-08-15 14:55:00 Test Item Value Reference Range Interpretation Comments CO2 (test code = CO2) 26 24-32 [facility]2018-08-15 14:55:00 Test Item Value Reference Range Interpretation Comments Chloride Lvl (test code = Chloride Lvl) 97 95-109 [facility]2018-08-15 14:55:00 Test Item Value Reference Range Interpretation Comments Potassium Lvl (test code = Potassium 3.8 3.5-5.1 Lvl) [facility] [id number] 14:55:00 Test Item Value Reference Range Interpretation Comments Creatinine Lvl (test code = Creatinine 8.22 0.50-1.40 Lvl) [facility]2018-08-15 14:55:00 Test Item Value Reference Range Interpretation Comments Sodium Lvl (test code = Sodium Lvl) 136 135-145 [facility]2018-08-15 14:55:00 Test Item Value Reference Range Interpretation Comments BUN (test code = BUN) 59 7-22 [facility]2018-08-15 14:55:00 Test Item Value Reference Range Interpretation Comments Glucose Lvl (test code = Glucose Lvl) 98 70-99 [facility]2018-08-15 14:55:00 Test Item Value Reference Range Interpretation Comments Globulin (test code = Globulin) 3.8 2.7-4.2 [facility]2018-08-15 14:55:00 Test Item Value Reference Range Interpretation Comments A/G Ratio (test code = A/G Ratio) 1.1 1 0.7-1.6 [facility]2018-08-15 14:55:00 Test Item Value Reference Range Interpretation Comments AGAP (test code = AGAP) 16.8 10.0-20.0 [facility]2018-08-15 14:55:00 Test Item Value Reference Range Interpretation Comments B/C Ratio (test code = B/C Ratio) 7 1 6-25 [facility] [id number] 14:55:00 Test Item Value Reference Range Interpretation Comments Phencyclidine Scr (test Negative (05/23/18 code = Phencyclidine Scr) 9:55 AM) [facility] [id number] 14:55:00 Test Item Value Reference Range Interpretation Comments 6-Acetylmor Scr (test Negative (05/23/18 9:55 code = 6-Acetylmor AM) Scr) [facility] [id number] 14:55:00 Test Item Value Reference Range Interpretation Comments Opiate Scr (test code Positive *ABN*(05/23/18 = Opiate Scr) 9:55 AM) [facility] [id number] 14:55:00 Test Item Value Reference Range Interpretation Comments Methadone Scr (test Negative (05/23/18 9:55 code = Methadone Scr) AM) [facility] [id number] 14:55:00 Test Item Value Reference Range Interpretation Comments Rosa M Scr (test code = Negative (05/23/18 9:55 Rosa M Scr) AM) [facility] [id number] 14:55:00 Test Item Value Reference Range Interpretation Comments Cutoff Values (test See Note (05/23/18 9:55 code = Cutoff Values) AM) [facility] [id number] 14:55:00 Test Item Value Reference Range Interpretation Comments Cocaine Scr (test code Negative (05/23/18 9:55 = Cocaine Scr) AM) [facility] [id number] 14:55:00 Test Item Value Reference Range Interpretation Comments Amph Scr (test code = Negative (05/23/18 9:55 Amph Scr) AM) [facility] [id number] 14:55:00 Test Item Value Reference Range Interpretation Comments Cannab Scr (test code Negative (05/23/18 9:55 = Cannab Scr) AM) [facility] [id number] 14:55:00 Test Item Value Reference Range Interpretation Comments Benzodiaz Scr (test Positive *ABN*(05/23/18 code = Benzodiaz Scr) 9:55 AM) [facility] [id number] 14:55:00 Test Item Value Reference Range Interpretation Comments Opiate Qnt (test code = See Note 2(05/23/18 Opiate Qnt) 9:55 AM) [facility] [id number] 14:55:00 Test Item Value Reference Range Interpretation Comments Benzodiaz Qnt (test code See Note 1(05/23/18 = Benzodiaz Qnt) 9:55 AM) [facility] HospitalRclwuyjOHKZTDUFUJ8706-76-01 14:55:00 Test Item Value Reference Range Interpretation Comments Eosinophils # (test code 0.3 See_Comment [A utomated message] The = Eosinophils #) system whic h generated this result tra nsmitted reference range : <=0.5. The reference r yared was not used to int erpret this result as normal/abnormal . [facility] Hos[id number] 14:55:00 Test Item Value Reference Range Interpretation Comments Basophils # (test code 0.1 See_Comment [Aut omated message] The = Basophils #) system which generated this result tra nsmitted reference range : <=0.2. The reference r yared was not used to int erpret this result as normal/abnormal . [facility]AskvvruODATYLJHBJ5012-49-23 14:55:00 Test Item Value Reference Range Interpretation Comments Neutrophils # (test code = Neutrophils 3.9 1.5-8.1 #) [facility] Tex[id number] 14:55:00 Test Item Value Reference Range Interpretation Comments Lymphocytes # (test code = Lymphocytes 1.3 1.0-5.5 #) [facility] TexasAlwfepeTUUVTXNMOX1193-77-89 14:55:00 Test Item Value Reference Range Interpretation Comments Monocytes # (test code 0.5 See_Comment [Aut omated message] The = Monocytes #) system which generated this result tra nsmitted reference range : <=0.8. The reference r yared was not used to int erpret this result as normal/abnormal . [facility] TexasOweaklwLEYFCFRHOR4430-25-62 14:55:00 Test Item Value Reference Range Interpretation Comments Basophils (test code = 0.9 See_Comment [Aut omated message] The Basophils) system which ge nerated this result tra nsmitted reference range : <=1.0. The reference r yared was not used to int erpret this result as normal/abnormal . [facility] Tex[id number] 14:55:00 Test Item Value Reference Range Interpretation Comments Monocytes (test code = Monocytes) 7.7 2.0-12.0 [facility] Tex[id number] 14:55:00 Test Item Value Reference Range Interpretation Comments Eosinophils (test code = 4.3 See_Comment [A utomated message] The Eosinophils) system which ge nerated this result tra nsmitted reference range : <=4.0. The reference r yared was not used to int erpret this result as normal/abnormal . [facility] Tex[id number] 14:55:00 Test Item Value Reference Range Interpretation Comments Lymphocytes (test code = Lymphocytes) 22.0 20.0-40.0 [facility] TexasOxkzrflEAEDOUGURP7972-15-99 14:55:00 Test Item Value Reference Range Interpretation Comments Segs (test code = Segs) 65.1 45.0-75.0 [facility] TexasJknngxaXGTKOGXCLS4684-00-95 14:55:00 Test Item Value Reference Range Interpretation Comments INR (test code = INR) 1.06 1 0.85-1.17 [facility] TexasFgkcetgPMGVYJITAL7823-24-58 14:55:00 Test Item Value Reference Range Interpretation Comments PT (test code = PT) 13.8 s 12.0-14.7 [facility] TexasXgjwrdcZQHNUJQSLF5814-42-92 14:55:00 Test Item Value Reference Range Interpretation Comments PTT (test code = PTT) 35.0 s 22.9-35.8 [facility] TexasVsvkyfuXCATQCEFVH7204-89-04 14:55:00 Test Item Value Reference Range Interpretation Comments RDW (test code = RDW) 18.1 11.5-14.5 [facility] TexasUkxgoitTPELHMVZRU4420-57-84 14:55:00 Test Item Value Reference Range Interpretation Comments MPV (test code = MPV) 8.0 7.4-10.4 [facility] TexasScljvkfHDGWFYKRSW9519-20-10 14:55:00 Test Item Value Reference Range Interpretation Comments Platelet (test code = Platelet) 228 133-450 [facility] TexasYdpoupaQMHVVYEKIO7356-46-32 14:55:00 Test Item Value Reference Range Interpretation Comments MCHC (test code = MCHC) 33.3 32.0-36.0 [facility] TexasVfwljwaJTALIXVGCE5944-85-18 14:55:00 Test Item Value Reference Range Interpretation Comments RBC (test code = RBC) 4.54 4.70-6.10 [facility] TexasEaivgehARTRTQNTOK6401-50-64 14:55:00 Test Item Value Reference Range Interpretation Comments WBC (test code = WBC) 6.1 3.7-10.4 [facility] TexasSvlivoiJKIJWIZKLL7979-99-78 14:55:00 Test Item Value Reference Range Interpretation Comments MCV (test code = MCV) 80.9 80.0-94.0 [facility] TexasKtjhdneFWBYQSFNXE1169-05-64 14:55:00 Test Item Value Reference Range Interpretation Comments Hct (test code = Hct) 36.7 42.0-54.0 [facility] TexasWqroyozKXOFBLSCNJ0694-65-45 14:55:00 Test Item Value Reference Range Interpretation Comments MCH (test code = MCH) 27.0 pg 27.0-31.0 [facility] TexasMawfepmDPMHCQEIIT3719-31-14 14:55:00 Test Item Value Reference Range Interpretation Comments Hgb (test code = Hgb) 12.2 14.0-18.0 [facility] HospitalUxhrqxhRSOIHAZDYZ3918-23-85 14:55:00 Test Item Value Reference Range Interpretation Comments Varicella IgG (test code = Varicella no gt IgG) [facility] HospitalXgmdyciEKTTFOETKK2567-32-43 14:55:00 Test Item Value Reference Range Interpretation Comments Varicella IgM (test no gt See_Comment [Automa emerson message] The code = Varicella IgM) system which generated this result tra nsmitted reference range : <=0.90. The reference r yared was not used to int erpret this result as normal/abnormal . [facility] HospitalBtpilgyUKYERCSVLE6343-92-90 14:55:00 Test Item Value Reference Range Interpretation Comments Treponemal Ab (test code Non-Reactive = Treponemal Ab) *NA*(05/23/18 9:55 AM) [facility] [place], TXMylwaabUCHYPNSJZK9094-12-73 14:55:00 Test Item Value Reference Range Interpretation Comments T-Spot.TB (test code Negative (05/23/18 9:55 = T-Spot.TB) AM) [facility] [place], TXHoogkxdTNPSPBERMF2266-02-50 14:55:00 Test Item Value Reference Range Interpretation Comments Gamma % (test code = Gamma %) 18.2 11.1-18.7 [facility] HospitalHekfpchUMHXFPMFLH9353-07-55 14:55:00 Test Item Value Reference Range Interpretation Comments Alpha 2 % (test code = Alpha 2 %) 7.8 7.0-11.9 [facility] HospitalNzvfacbGGRGLOXOBD3102-70-71 14:55:00 Test Item Value Reference Range Interpretation Comments Beta % (test code = Beta %) 9.5 7.8-13.7 [facility] HospitalDugmnnmWCOICYLXSU8825-14-39 14:55:00 Test Item Value Reference Range Interpretation Comments Albumin % (test code = Albumin %) 60.9 55.8-66.1 [facility] HospitalJqmutadPGVBNWINMX1749-13-02 14:55:00 Test Item Value Reference Range Interpretation Comments Alpha 1 % (test code = Alpha 1 %) 3.6 2.8-4.9 [facility] HospitalMhqdihgFTSLCHYGKV1940-27-72 14:55:00 Test Item Value Reference Range Interpretation Comments Gamma Glob (test code = Gamma Glob) 1.47 0.71-1.57 [facility] HospitalLcddjsvQEKQBUEEWJ6725-32-39 14:55:00 Test Item Value Reference Range Interpretation Comments Tot Prot (SPE) (test code = Tot Prot 8.1 6.4-8.4 (SPE)) [facility] [place], TXNohvjbhDEBXPWCBOL0957-16-39 14:55:00 Test Item Value Reference Range Interpretation Comments Beta Glob (test code = Beta Glob) 0.77 0.50-1.[address] [facility] [place], TXFibjxtaJBFLZQGLPE5996-41-08 14:55:00 Test Item Value Reference Range Interpretation [...] and concur with the resident's interpretation. CPT 31864-SB [facility] [place], TXZmsoyslZVDHSNHVGV8922-83-65 14:55:00 Test Item Value Reference Range Interpretation Comments Albumin (SPE) (test code = Albumin 4.93 3.57-5.55 (SPE)) [facility] [place], TXEjvmjjeQDCXJKWXLS0344-72-15 14:55:00 Test Item Value Reference Range Interpretation Comments Alpha 1 Glob (test code = Alpha 1 Glob) 0.29 0.18-0.[address] [facility] [place], TXMnpkbmtSXTAGEKVYS0810-45-14 14:55:00 Test Item Value Reference Range Interpretation Comments Alpha 2 Glob (test code = Alpha 2 Glob) 0.63 0.45-1.[address] [facility] [place], TXYxvdwuqKCNCCZTLUH7613-03-23 14:55:00 Test Item Value Reference Range Interpretation Comments [place]/Lambda Free Light Chains Ratio 2.18 0.26-1.65 (test code = [place]/Lambda Free Light Chains Ratio) [facility] [place], TXRjywwvaAWGZZEGSLK0339-20-58 14:55:00 Test Item Value Reference Range Interpretation Comments Lambda Free Light Chains (test code = 89.85 5.70-26.30 Lambda Free Light Chains) [facility] [place], TXJhddnpkBZMTIGNIFJ7671-33-30 14:55:00 Test Item Value Reference Range Interpretation Comments [place] Free [employer] Chains (test code = 196.11 3.30-19.40 [place] Free [employer] Chains) [facility] [place], TXItjfehePTPPJIIYAT3413-30-24 14:55:00 Test Item Value Reference Range Interpretation Comments HSV 1 IgG (test code = HSV 1 IgG) no gt [facility] [place], TXTjkfdwvHVRFCSUVKS3767-34-11 14:55:00 Test Item Value Reference Range Interpretation Comments HSV 2 IgG (test code = HSV 2 IgG) no gt [facility] [place], TXKpjoedzJJRYEINHHH5144-18-17 14:55:00 Test Item Value Reference Range Interpretation Comments CMV IgM (test code = CMV IgM) 0.[address] [facility] [place], TXJfybvtlJCZPEEJQXT0404-29-23 14:55:00 Test Item Value Reference Range Interpretation Comments CMV IgG (test code = Reactive *ABN*(05/23/18 CMV IgG) 9:55 AM) [facility] [place], TXBfcbdieYVIWQOVGUH3621-91-50 14:55:00 Test Item Value Reference Range Interpretation Comments EBV VCA IgG (test code = EBV VCA IgG) no gt [facility] [place], TXDxonjkqJGMIIOLKQK0669-34-83 14:55:00 Test Item Value Reference Range Interpretation Comments Hep Bs Ab (test code = Hep Bs Ab) 4.[address] [facility] [place], TXTxbhnytUAPCKBVHID5807-58-18 14:55:00 Test Item Value Reference Range Interpretation Comments Hep C Ab (test code = Negative *NA*(05/23/18 Hep C Ab) 9:55 AM) [facility] [place], TXVwqqgxtCAERAHNOJG5064-42-29 14:55:00 Test Item Value Reference Range Interpretation Comments EBV VCA IgM (test code = EBV VCA IgM) no gt [facility] [place], TXMzhroxiZWRJTQEXPP9996-24-26 14:55:00 Test Item Value Reference Range Interpretation Comments Hep Bs Ag (test code Negative *NA*(05/23/18 = Hep Bs Ag) 9:55 AM) [facility] [place], TXMigdpuzJMZQZYYXDJ8863-32-87 14:55:00 Test Item Value Reference Range Interpretation Comments Hep B Core Ab (test Negative *NA*(05/23/18 code = Hep B Core Ab) 9:55 AM) [facility] [place], TXXhqwjnqBPDVHUMATJ0560-21-52 14:55:00 Test Item Value Reference Range Interpretation Comments HIV Ag/Ab 4th Gen Negative *NA*(05/23/18 (test code = HIV 9:55 AM) Ag/Ab 4th Gen) [facility] [place], TXZmbvocoKPMLTBYERP8880-85-86 14:55:00 Test Item Value Reference Range Interpretation Comments MIKE Ser Interp The serum immunofixation (test code = MIKE electrophoresis Ser Interp) demonstrates polyclonal distribution of immunoglobulins. No monoclonal immunoglobulins are detected. The electronic medical record has been reviewed for relevant history. I have personally reviewed the test results and concur with the resident's interpretation. CPT 09722-KI [facility] HospitalRfmfkcwEWUQKZBTGL0835-13-34 14:55:00 Test Item Value Reference Range Interpretation Comments MIKE Ser Pattern Diffusely staining (test code = MIKE immunoreactivity is present Ser Pattern) in the IgG, IgA, IgM, kappa, and lambda lanes in a normal polyclonal distribution. No monoclonal immunoglobulins are detected. [facility] HospitalRqnouwpBQMYGD3280-45-84 14:55:00 Test Item Value Reference Range Interpretation Comments VLDL (test code = VLDL) 30 1 [facility] HospitalUobfxynHFHJOT9918-53-54 14:55:00 Test Item Value Reference Range Interpretation Comments LDL (Calculated) (test code = LDL 74 (Calculated)) [facility] HospitalHseoqebATOACM2269-08-58 14:55:00 Test Item Value Reference Range Interpretation Comments Chol (test code = Chol) 176 [facility] HospitalHkunqrnLWTPJW5586-46-66 14:55:00 Test Item Value Reference Range Interpretation Comments HDL (test code = HDL) 72 [facility] HospitalCijrxycQXKRES2547-79-96 14:55:00 Test Item Value Reference Range Interpretation Comments Trig (test code = Trig) 152 [facility] HospitalBhkhvxeXYDNLN3812-05-92 14:55:00 Test Item Value Reference Range Interpretation Comments CHD Risk (test code = CHD Risk) 2.44 1 4.00-7.30 [facility]annPARASITOLOGY - PQJQAJAH5737-03-31 14:55:00 Test Item Value Reference Range Interpretation Comments Strongyloides Antibodies (test code Negative = Strongyloides Antibodies) [facility] HospitalPARATHYROID VWYXDTS8626-42-03 14:55:00 Test Item Value Reference Range Interpretation Comments PTH Intact (test code = PTH Intact) 286.0 18.4-80.1 [facility] HospitalSPECIAL IBNHJRGLQ4725-38-58 14:55:00 Test Item Value Reference Range Interpretation Comments PSA (test code = PSA) 0.46 See_Comment [Auto mated message] The system which ge nerated this result transmit emerson reference range : <=4.00. The reference r yared was not used to interpr et this result as erinn l/abnormal. [facility] HospitalPiiku DCXOCXRDI6504-91-97 14:55:00 Test Item Value Reference Range Interpretation Comments Hgb A1C (test code = Hgb A1C) 4.9 [facility] HospitalPet ReadyK[facility] WJPMGNTOM8762-21-84 14:55:00 Test Item Value Reference Range Interpretation Comments Nicotine Lvl (test code = None Detected Nicotine Lvl) [facility]Pi[facility] XFTVROCHG5362-56-91 14:55:00 Test Item Value Reference Range Interpretation Comments Cotinine Lvl (test code = None Detected Cotinine Lvl) [place] [employer]2018-07-08 12:03:00 Test Item Value Reference Range Interpretation Comments Troponin-I (test code 0.04 See_Comment [Auto mated message] The = Troponin-I) system which g enerated this result transmit emerson reference range : <=0.40. The reference r yared was not used to interpr et this result as erinn l/abnormal. [place] [employer]2018-07-08 12:03:00 Test Item Value Reference Range Interpretation Comments Total CK (test code = Total CK) 26 191 [facility] HospitalHKS Media[facility] OWBHMJW4749-28-73 07:54:00 Test Item Value Reference Range Interpretation Comments Troponin-I (test code 0.02 See_Comment [Auto mated message] The = Troponin-I) system which g enerated this result transmit emerson reference range : <=0.40. The reference r yared was not used to interpr et this result as erinn l/abnormal. [place] [employer]2018-07-08 07:54:00 Test Item Value Reference Range Interpretation Comments Total CK (test code = Total CK) 31 -191 [place] [employer] [id number] 07:54:00 Test Item Value Reference Range Interpretation Comments Magnesium Lvl (test code = Magnesium 1.9 1.8-2.4 Lvl) [place] [employer] [id number] 07:54:00 Test Item Value Reference Range Interpretation Comments B/C Ratio (test code = B/C Ratio) 6 1 6-25 [place] [employer] [id number] 07:54:00 Test Item Value Reference Range Interpretation Comments Albumin Lvl (test code = Albumin Lvl) 3.3 3.5-5.0 [place] 344898-07-08 07:54:00 Test Item Value Reference Range Interpretation Comments A/G Ratio (test code = A/G Ratio) 0.9 1 0.7-1.6 [facility]2018-07-08 07:54:00 Test Item Value Reference Range Interpretation Comments Total Protein (test code = Total 7.1 6.4-8.4 Protein) [facility]2018-07-08 07:54:00 Test Item Value Reference Range Interpretation Comments Globulin (test code = Globulin) 3.8 2.7-4.2 [facility]2018-07-08 07:54:00 Test Item Value Reference Range Interpretation Comments ALT (test code = ALT) 18 See_Comment [Auto mated message] The system which ge nerated this result transmit emerson reference range : <=65. The reference range was not used to interpr et this result as erinn l/abnormal. [place] 344898-07-08 07:54:00 Test Item Value Reference Range Interpretation Comments AST (test code = AST) 14 See_Comment [Auto mated message] The system which ge nerated this result transmit emerson reference range : <=37. The reference range was not used to interpr et this result as erinn l/abnormal. [facility]2018-07-08 07:54:00 Test Item Value Reference Range Interpretation Comments Alk Phos (test code = Alk Phos) 82 39-136 [facility]2018-07-08 07:54:00 Test Item Value Reference Range Interpretation Comments Bili Total (test code = Bili Total) 0.5 0.2-1.3 [facility]2018-07-08 07:54:00 Test Item Value Reference Range Interpretation Comments eGFR (test code = eGFR) 10 [facility]2018-07-08 07:54:00 Test Item Value Reference Range Interpretation Comments Potassium Lvl (test code = Potassium 3.2 3.5-5.1 Lvl) [facility]2018-07-08 07:54:00 Test Item Value Reference Range Interpretation Comments Chloride Lvl (test code = Chloride Lvl) 103 95-109 [facility]2018-07-08 07:54:00 Test Item Value Reference Range Interpretation Comments Glucose Lvl (test code = Glucose Lvl) 95 70-99 [facility]2018-07-08 07:54:00 Test Item Value Reference Range Interpretation Comments BUN (test code = BUN) 34 7-22 [facility]2018-07-08 07:54:00 Test Item Value Reference Range Interpretation Comments Creatinine Lvl (test code = Creatinine 5.83 0.50-1.40 Lvl) [facility]2018-07-08 07:54:00 Test Item Value Reference Range Interpretation Comments Sodium Lvl (test code = Sodium Lvl) 138 135-145 [facility]2018-07-08 07:54:00 Test Item Value Reference Range Interpretation Comments CO2 (test code = CO2) 23 24-32 [facility]2018-07-08 07:54:00 Test Item Value Reference Range Interpretation Comments AGAP (test code = AGAP) 15.2 10.0-20.0 [place] 344898-07-08 07:54:00 Test Item Value Reference Range Interpretation Comments Calcium Lvl (test code = Calcium Lvl) 8.5 8.5-10.5 [facility]2018-07-08 07:54:00 Test Item Value Reference Range Interpretation Comments Phosphorus (test code = Phosphorus) 4.2 2.5-4.5 [facility]XfmvydbJOZMOCUTCW5182-64-79 07:54:00 Test Item Value Reference Range Interpretation Comments Lymphocytes # (test code = Lymphocytes 1.5 1.0-5.5 #) [facility] TexasZzejuggFHEWRMFJFD5288-37-09 07:54:00 Test Item Value Reference Range Interpretation Comments Monocytes # (test code 0.5 See_Comment [Aut omated message] The = Monocytes #) system which generated this result tra nsmitted reference range : <=0.8. The reference r yared was not used to int erpret this result as normal/abnormal . [facility] TexasWycsttxKYCIQHSBND9038-21-28 07:54:00 Test Item Value Reference Range Interpretation Comments Basophils (test code = 1.0 See_Comment [Aut omated message] The Basophils) system which ge nerated this result tra nsmitted reference range : <=1.0. The reference r yared was not used to int erpret this result as normal/abnormal . [place] 926218-07-08 07:54:00 Test Item Value Reference Range Interpretation Comments Segs-Bands # (test code = Segs-Bands #) 3.5 1.5-8.1 [facility] TexasDrfqyqfGYJUUZOKFE7393-86-37 07:54:00 Test Item Value Reference Range Interpretation Comments Basophils # (test code 0.1 See_Comment [Aut omated message] The = Basophils #) system which generated this result tra nsmitted reference range : <=0.2. The reference r yared was not used to int erpret this result as normal/abnormal . [facility] TexasHbnjmstXAZBPUMLRM7067-41-13 07:54:00 Test Item Value Reference Range Interpretation Comments Eosinophils # (test code 0.2 See_Comment [A utomated message] The = Eosinophils #) system whic h generated this result tra nsmitted reference range : <=0.5. The reference r yared was not used to int erpret this result as normal/abnormal . [facility] TexasSjmrjbaVAGGIUHZRY3178-67-48 07:54:00 Test Item Value Reference Range Interpretation Comments Lymphocytes (test code = Lymphocytes) 26.7 20.0-40.0 [facility] TexasWvtvtteJAQXBBAEAP1627-46-96 07:54:00 Test Item Value Reference Range Interpretation Comments Segs (test code = Segs) 61.0 45.0-75.0 [facility] TexasQtiwfwcQZVMWCAMRM4448-09-72 07:54:00 Test Item Value Reference Range Interpretation Comments Monocytes (test code = Monocytes) 8.0 2.0-12.0 [facility] TexasPvlgarqVNTBCSOADG1097-35-85 07:54:00 Test Item Value Reference Range Interpretation Comments Eosinophils (test code = 3.3 See_Comment [A utomated message] The Eosinophils) system which ge nerated this result tra nsmitted reference range : <=4.0. The reference r yared was not used to int erpret this result as normal/abnormal . [facility] TexasLvoehpoNTCTJRYIAE2956-62-08 07:54:00 Test Item Value Reference Range Interpretation Comments WBC (test code = WBC) 5.7 3.7-10.4 [facility] TexasTjlxmuuYROCVEHNYS4845-11-73 07:54:00 Test Item Value Reference Range Interpretation Comments RBC (test code = RBC) 4.48 4.70-6.10 [facility] TexasVmoruyyKJLAWELDOW8034-31-05 07:54:00 Test Item Value Reference Range Interpretation Comments RDW (test code = RDW) 17.7 11.5-14.5 [facility]rk[facility]GISGAT[facility]19[facility] 07:54:00 Test Item Value Reference Range Interpretation Comments Platelet (test code = Platelet) 215 133-450 [facility] HospitalNjdmzrrXKHOHGXUAN9954-18-66 07:54:00 Test Item Value Reference Range Interpretation Comments MPV (test code = MPV) 7.2 7.4-10.4 [facility] HospitalPvcdwdlTDCZMKMEMX5971-02-87 07:54:00 Test Item Value Reference Range Interpretation Comments Hgb (test code = Hgb) 11.6 14.0-18.0 [facility] HospitalJpazmicKAOWMBNMMG4504-84-23 07:54:00 Test Item Value Reference Range Interpretation Comments Hct (test code = Hct) 35.5 42.0-54.0 [facility] HospitalAbjquzaWELOUAZJST3817-34-93 07:54:00 Test Item Value Reference Range Interpretation Comments MCHC (test code = MCHC) 32.6 32.0-36.0 [facility] HospitalEydfsedYDQAMTLFMP6557-21-08 07:54:00 Test Item Value Reference Range Interpretation Comments MCV (test code = MCV) 79.2 80.0-94.0 [facility]IqulwuoNZJFCYQMSL5404-90-84 07:54:00 Test Item Value Reference Range Interpretation Comments MCH (test code = MCH) 25.8 pg 27.0-31.0 [facility] 02:58:00 Test Item Value Reference Range Interpretation Comments Troponin-I (test code no gt See_Comment [Auto mated message] The = Troponin-I) system which g enerated this result transmit emerson reference range : <=0.40. The reference r yared was not used to interpr et this result as erinn l/abnormal. [facility] HospitalEl [employer] [id number] 00:12:00 Test Item Value Reference Range Interpretation Comments proBNP (test code = 16703 See_Comment [Automa emerson message] The proBNP) system which ge nerated this result tra nsmitted reference range : <=125. The reference r yared was not used to int erpret this result as erinn l/abnormal. [facility] HospitalHKS MediaGroup DQSBXLZ0771-16-13 00:12:00 Test Item Value Reference Range Interpretation Comments Total CK (test code = Total CK) 37 12-191 [facility] HospitalannCARDIAC TMPQWSL0625-80-92 00:12:00 Test Item Value Reference Range Interpretation Comments CK MB (test code = CK MB) 1.0 0.5-3.6 [facility] HospitalannCARDIAC [id number] 00:12:00 Test Item Value Reference Range Interpretation Comments CK MB Index (test 2.7 1 See_Comment [Automate d message] The code = CK MB Index) system w [facility] generated this result transmit emerson reference range : <=2.5. The reference range was not used to interpr et this result as erinn l/abnormal. [employer] [id number] 00:12:00 Test Item Value Reference Range Interpretation Comments eGFR (test code = eGFR) 12 [facility] HospitalFairchild Industrial Products Company [id number] 00:12:00 Test Item Value Reference Range Interpretation Comments Alk Phos (test code = Alk Phos) 88 39-136 [facility] [id number] 00:12:00 Test Item Value Reference Range Interpretation Comments AST (test code = AST) 14 See_Comment [Auto mated message] The system which ge nerated this result transmit emerson reference range : <=37. The reference range was not used to interpr et this result as erinn l/abnormal. [employer] [id number] 00:12:00 Test Item Value Reference Range Interpretation Comments Total Protein (test code = Total 7.4 6.4-8.4 Protein) [facility]Fair[facility] Company [id number] 00:12:00 Test Item Value Reference Range Interpretation Comments Bili Total (test code = Bili Total) 0.5 0.2-1.3 [facility]Fair[facility] [id number] 00:12:00 Test Item Value Reference Range Interpretation Comments ALT (test code = ALT) 17 See_Comment [Auto mated message] The system which ge nerated this result transmit emerson reference range : <=65. The reference range was not used to interpr et this result as erinn l/abnormal. [employer] [id number] 00:12:00 Test Item Value Reference Range Interpretation Comments Albumin Lvl (test code = Albumin Lvl) 3.2 3.5-5.0 [facility]2018-07-08 00:12:00 Test Item Value Reference Range Interpretation Comments Calcium Lvl (test code = Calcium Lvl) 8.1 8.5-10.5 [facility]2018-07-08 00:12:00 Test Item Value Reference Range Interpretation Comments Sodium Lvl (test code = Sodium Lvl) 137 135-145 [facility]2018-07-08 00:12:00 Test Item Value Reference Range Interpretation Comments CO2 (test code = CO2) 26 24-32 [facility]2018-07-08 00:12:00 Test Item Value Reference Range Interpretation Comments Creatinine Lvl (test code = Creatinine 4.94 0.50-1.40 Lvl) [facility]2018-07-08 00:12:00 Test Item Value Reference Range Interpretation Comments BUN (test code = BUN) 24 7-22 [facility]2018-07-08 00:12:00 Test Item Value Reference Range Interpretation Comments Glucose Lvl (test code = Glucose Lvl) 156 70-99 [facility]2018-07-08 00:12:00 Test Item Value Reference Range Interpretation Comments B/C Ratio (test code = B/C Ratio) 5 1 6-25 [facility]2018-07-08 00:12:00 Test Item Value Reference Range Interpretation Comments AGAP (test code = AGAP) 12.3 10.0-20.0 [facility]2018-07-08 00:12:00 Test Item Value Reference Range Interpretation Comments A/G Ratio (test code = A/G Ratio) 0.8 1 0.7-1.6 [facility]2018-07-08 00:12:00 Test Item Value Reference Range Interpretation Comments Globulin (test code = Globulin) 4.2 2.7-4.2 [facility]2018-07-08 00:12:00 Test Item Value Reference Range Interpretation Comments Chloride Lvl (test code = Chloride Lvl) 102 95-109 [facility]2018-07-08 00:12:00 Test Item Value Reference Range Interpretation Comments Potassium Lvl (test code = Potassium 3.3 3.5-5.1 Lvl) [facility] TexasGgegixfVXEAWSVEER2793-62-64 00:12:00 Test Item Value Reference Range Interpretation Comments WBC (test code = WBC) 5.0 3.7-10.4 [facility] TexasVaawbmiLNUBJWFJBF8741-08-00 00:12:00 Test Item Value Reference Range Interpretation Comments RDW (test code = RDW) 17.6 11.5-14.5 [facility] TexasSbngchsTATLAAYWTJ6757-82-00 00:12:00 Test Item Value Reference Range Interpretation Comments MCHC (test code = MCHC) 33.5 32.0-36.0 [facility] TexasJdidmisVEFNURTQOO3446-72-95 00:12:00 Test Item Value Reference Range Interpretation Comments MPV (test code = MPV) 7.3 7.4-10.4 [facility] TexasNplalhsKYQOLNSMXY7506-54-65 00:12:00 Test Item Value Reference Range Interpretation Comments RBC (test code = RBC) 4.25 4.70-6.10 [facility] TexasYdbjyvlSTHUWBGFPX5601-12-79 00:12:00 Test Item Value Reference Range Interpretation Comments MCH (test code = MCH) 26.0 pg 27.0-31.0 [facility] TexasVdjtkobFAMRVCXUBK5892-83-33 00:12:00 Test Item Value Reference Range Interpretation Comments MCV (test code = MCV) 77.5 80.0-94.0 [facility] TexasSofheqaYPUFEMZHQQ8955-91-36 00:12:00 Test Item Value Reference Range Interpretation Comments Hct (test code = Hct) 33.0 42.0-54.0 [facility] TexasThiualzHNEGMGIGNF0548-54-90 00:12:00 Test Item Value Reference Range Interpretation Comments Hgb (test code = Hgb) 11.1 14.0-18.0 [facility] TexasWiwmnpeWHWIAOVQAP8375-12-28 00:12:00 Test Item Value Reference Range Interpretation Comments Platelet (test code = Platelet) 208 133-450 [facility] TexasLfyravkODGKINIBAQ6180-16-57 00:12:00 Test Item Value Reference Range Interpretation Comments Segs-Bands # (test code = Segs-Bands #) 3.6 1.5-8.1 [facility] TexasRpcwydyOXHAQHMVVY1771-82-05 00:12:00 Test Item Value Reference Range Interpretation Comments Lymphocytes # (test code = Lymphocytes 0.9 1.0-5.5 #) [facility] TexasFvmhtpmAZNKGHBVLL1760-52-41 00:12:00 Test Item Value Reference Range Interpretation Comments Basophils # (test code 0.1 See_Comment [Aut omated message] The = Basophils #) system which generated this result tra nsmitted reference range : <=0.2. The reference r yared was not used to int erpret this result as normal/abnormal . [facility] TexasJzqpmjuROTKWGMXCJ7968-18-91 00:12:00 Test Item Value Reference Range Interpretation Comments Eosinophils # (test code 0.1 See_Comment [A utomated message] The = Eosinophils #) system whic h generated this result tra nsmitted reference range : <=0.5. The reference r yared was not used to int erpret this result as normal/abnormal . [facility] TexasEhdlwaxWFYCYOBBCW4536-57-41 00:12:00 Test Item Value Reference Range Interpretation Comments Monocytes # (test code 0.4 See_Comment [Aut omated message] The = Monocytes #) system which generated this result tra nsmitted reference range : <=0.8. The reference r yared was not used to int erpret this result as normal/abnormal . [facility] TexasMbjfutwSKPVRJYYLJ3283-88-05 00:12:00 Test Item Value Reference Range Interpretation Comments Basophils (test code = 1.0 See_Comment [Aut omated message] The Basophils) system which ge nerated this result tra nsmitted reference range : <=1.0. The reference r yared was not used to int erpret this result as normal/abnormal . [facility] TexasWhojxgxPQPXTTUIIH9651-76-88 00:12:00 Test Item Value Reference Range Interpretation Comments Eosinophils (test code = 2.0 See_Comment [A utomated message] The Eosinophils) system which ge nerated this result tra nsmitted reference range : <=4.0. The reference r yared was not used to int erpret this result as normal/abnormal . [facility] TexasXzpswcoGVWPTXFFHO5555-50-53 00:12:00 Test Item Value Reference Range Interpretation Comments Microcyte (test code = 1+ *ABN*(04/14/18 7:12 Microcyte) PM) [facility] TexasUghkepaDANGMJTRXL3850-27-43 00:12:00 Test Item Value Reference Range Interpretation Comments Plt Morph (test code = Normal (04/14/18 7:12 PM) Plt Morph) [facility] TexasVyujxirNVJUFFKHUM1702-95-21 00:12:00 Test Item Value Reference Range Interpretation Comments Lymphocytes (test code = Lymphocytes) 17.2 20.0-40.0 [facility] HospitalAzgigzvOTSJGRHACK9599-90-34 00:12:00 Test Item Value Reference Range Interpretation Comments Segs (test code = Segs) 72.3 45.0-75.0 [facility] HospitalDkzxyfiRCNLPDLUHT0098-19-10 00:12:00 Test Item Value Reference Range Interpretation Comments Monocytes (test code = Monocytes) 7.5 2.0-12.0 [facility] HospitalTbsqdzxTGEEABXNVA3503-75-07 12:10:00 Test Item Value Reference Range Interpretation Comments Vanco Lvl (test code = Vanco Lvl) 17.4 [facility] JWNDD2109-03-58 08:01:00 Test Item Value Reference Range Interpretation Comments Magnesium Lvl (test code = Magnesium 2.1 1.8-2.4 Lvl) [facility]2018-06-11 08:01:00 Test Item Value Reference Range Interpretation Comments Phosphorus (test code = Phosphorus) 5.6 2.5-4.5 [facility]AzjgaqqNMLLZODRNGNQ2659-05-79 08:01:00 Test Item Value Reference Range Interpretation Comments AGAP (test code = AGAP) 17.3 10.0-20.0 [facility]jcvfDHUCYVCFSMJB7063-[facility]-57 08:01:00 Test Item Value Reference Range Interpretation Comments eGFR (test code = eGFR) 5 [facility]BernjnrUJCYHJXQFCDX4579-12-16 08:01:00 Test Item Value Reference Range Interpretation Comments Chloride Lvl (test code = Chloride Lvl) 94 95-109 [facility]NrmeedvRDXRIHJUGLVP2334-40-82 08:01:00 Test Item Value Reference Range Interpretation Comments CO2 (test code = CO2) 24 24-32 [facility]SisvyhgEVSZNLHLDTQI6304-30-72 08:01:00 Test Item Value Reference Range Interpretation Comments Calcium Lvl (test code = Calcium Lvl) 8.3 8.5-10.5 [facility]NhrakbfZBIGFGCODACE6965-58-07 08:01:00 Test Item Value Reference Range Interpretation Comments Glucose Lvl (test code = Glucose Lvl) 120 70-99 [facility] OaklandFqxrheoMFFWOGASUNYB7424-29-24 08:01:00 Test Item Value Reference Range Interpretation Comments Potassium Lvl (test code = Potassium 4.3 3.5-5.1 Lvl) [facility] OaklandKadwehiLYUKFJSHSQEP3257-81-59 08:01:00 Test Item Value Reference Range Interpretation Comments Sodium Lvl (test code = Sodium Lvl) 131 135-145 [facility] OaklandWttuuakRXOUTIYNVIXT8609-22-45 08:01:00 Test Item Value Reference Range Interpretation Comments BUN (test code = BUN) 55 7-22 [facility] OaklandVhlxbxeIWWZYFVWAOGO7084-91-43 08:01:00 Test Item Value Reference Range Interpretation Comments Creatinine Lvl (test code = Creatinine 9.62 0.50-1.40 Lvl) [facility] TexasFpjwnofZFMKWFLBQO7043-75-38 08:01:00 Test Item Value Reference Range Interpretation Comments Basophils (test code = 0.3 See_Comment [Aut omated message] The Basophils) system which ge nerated this result tra nsmitted reference range : <=1.0. The reference r yared was not used to int erpret this result as normal/abnormal . [facility] TexasKonthqsYBRHFBWMMT3701-50-04 08:01:00 Test Item Value Reference Range Interpretation Comments Monocytes (test code = Monocytes) 10.9 2.0-12.0 [facility] TexasCimzjakGKLBIZWDPQ5563-86-58 08:01:00 Test Item Value Reference Range Interpretation Comments Segs (test code = Segs) 78.7 45.0-75.0 [facility] TexasZcadhjjHUJIBEGNWJ2930-35-02 08:01:00 Test Item Value Reference Range Interpretation Comments Lymphocytes (test code = Lymphocytes) 8.8 20.0-40.0 [facility] TexasYooifnnXJTBQDFTHJ5720-47-00 08:01:00 Test Item Value Reference Range Interpretation Comments Eosinophils # (test code 0.1 See_Comment [A utomated message] The = Eosinophils #) system whic h generated this result tra nsmitted reference range : <=0.5. The reference r yared was not used to int erpret this result as normal/abnormal . [facility] TexasYgpqikvMNTRQFUSNT6798-08-47 08:01:00 Test Item Value Reference Range Interpretation Comments Monocytes # (test code 0.9 See_Comment [Aut omated message] The = Monocytes #) system which generated this result tra nsmitted reference range : <=0.8. The reference r yared was not used to int erpret this result as normal/abnormal . [facility] TexasNmvrxgeNFSDTBDPRO5878-60-88 08:01:00 Test Item Value Reference Range Interpretation Comments Eosinophils (test code = 1.3 See_Comment [A utomated message] The Eosinophils) system which ge nerated this result tra nsmitted reference range : <=4.0. The reference r yared was not used to int erpret this result as normal/abnormal . [facility] TexasNhpiiekPQLETKPVLJ7107-55-78 08:01:00 Test Item Value Reference Range Interpretation Comments Microcyte (test code = 1+ *ABN*(03/19/18 Microcyte) 3:01 AM) [facility] TexasPmgyublEZUBOTNGHO8498-23-59 08:01:00 Test Item Value Reference Range Interpretation Comments Segs-Bands # (test code = Segs-Bands #) 6.5 1.5-8.1 [facility] TexasCrtrsleTTRVNPDSHX3707-22-15 08:01:00 Test Item Value Reference Range Interpretation Comments Lymphocytes # (test code = Lymphocytes 0.7 1.0-5.5 #) [facility] TexasIdbssheSLZBMOQVGN1445-50-87 08:01:00 Test Item Value Reference Range Interpretation Comments MPV (test code = MPV) 7.9 7.4-10.4 [facility] TexasTiblzqtBILPBADTFK9787-47-80 08:01:00 Test Item Value Reference Range Interpretation Comments Platelet (test code = Platelet) 240 133-450 [facility] TexasSbsxarcYAUHFDYXVJ5223-11-59 08:01:00 Test Item Value Reference Range Interpretation Comments MCH (test code = MCH) 26.4 pg 27.0-31.0 [facility] TexasOjnimyxXGOLQWUWNF6896-29-69 08:01:00 Test Item Value Reference Range Interpretation Comments RDW (test code = RDW) 15.4 11.5-14.5 [facility] TexasJbaxgopABZKGYVNCH9363-34-39 08:01:00 Test Item Value Reference Range Interpretation Comments MCHC (test code = MCHC) 34.2 32.0-36.0 [facility] TexasYjogewuIYMVNOAXPL5437-23-66 08:01:00 Test Item Value Reference Range Interpretation Comments RBC (test code = RBC) 2.99 4.70-6.10 [facility] TexasKeacbsjVSFLEONGJT1756-02-26 08:01:00 Test Item Value Reference Range Interpretation Comments WBC (test code = WBC) 8.2 3.7-10.4 [facility] TexasJkvuiueZBMFKGRFKU6639-89-37 08:01:00 Test Item Value Reference Range Interpretation Comments Hct (test code = Hct) 23.1 42.0-54.0 [facility] TexasBueuthkQANQCRZAPJ8837-58-08 08:01:00 Test Item Value Reference Range Interpretation Comments Hgb (test code = Hgb) 7.9 14.0-18.0 [facility] TexasBupvvmxUDXNXONEJK1501-18-41 08:01:00 Test Item Value Reference Range Interpretation Comments MCV (test code = MCV) 77.1 80.0-94.0 [facility]2018-06-10 08:29:00 Test Item Value Reference Range Interpretation Comments Magnesium Lvl (test code = Magnesium 2.3 1.8-2.4 Lvl) [facility]2018-06-10 08:29:00 Test Item Value Reference Range Interpretation Comments eGFR (test code = eGFR) 6 [facility]2018-06-10 08:29:00 Test Item Value Reference Range Interpretation Comments Bili Total (test code = Bili Total) 0.4 0.2-1.3 [facility]2018-06-10 08:29:00 Test Item Value Reference Range Interpretation Comments Potassium Lvl (test code = Potassium 4.0 3.5-5.1 Lvl) [facility] [facility] 08:29:00 Test Item Value Reference Range Interpretation Comments Glucose Lvl (test code = Glucose Lvl) 105 70-99 [facility]2018-06-10 08:29:00 Test Item Value Reference Range Interpretation Comments BUN (test code = BUN) 50 7-22 [facility]2018-06-10 08:29:00 Test Item Value Reference Range Interpretation Comments Sodium Lvl (test code = Sodium Lvl) 133 135-145 [facility]2018-06-10 08:29:00 Test Item Value Reference Range Interpretation Comments Creatinine Lvl (test code = Creatinine 8.40 0.50-1.40 Lvl) [facility]2018-06-10 08:29:00 Test Item Value Reference Range Interpretation Comments Chloride Lvl (test code = Chloride Lvl) 97 95-109 [facility]2018-06-10 08:29:00 Test Item Value Reference Range Interpretation Comments Alk Phos (test code = Alk Phos) 104 39-136 [facility]2018-06-10 08:29:00 Test Item Value Reference Range Interpretation Comments Albumin Lvl (test code = Albumin Lvl) 2.7 3.5-5.0 [facility]2018-06-10 08:29:00 Test Item Value Reference Range Interpretation Comments Total Protein (test code = Total 6.9 6.4-8.4 Protein) [facility]2018-06-10 08:29:00 Test Item Value Reference Range Interpretation Comments Calcium Lvl (test code = Calcium Lvl) 8.0 8.5-10.5 [facility]2018-06-10 08:29:00 Test Item Value Reference Range Interpretation Comments CO2 (test code = CO2) 26 24-32 [facility]2018-06-10 08:29:00 Test Item Value Reference Range Interpretation Comments AST (test code = AST) 9 See_Comment [Auto mated message] The system which ge nerated this result transmit emerson reference range : <=37. The reference range was not used to interpr et this result as erinn l/abnormal. [facility]2018-06-10 08:29:00 Test Item Value Reference Range Interpretation Comments ALT (test code = ALT) 12 See_Comment [Auto mated message] The system which ge nerated this result transmit emerson reference range : <=65. The reference range was not used to interpr et this result as erinn l/abnormal. [facility]2018-06-10 08:29:00 Test Item Value Reference Range Interpretation Comments B/C Ratio (test code = B/C Ratio) 6 1 6-25 [facility]2018-06-10 08:29:00 Test Item Value Reference Range Interpretation Comments AGAP (test code = AGAP) 14.0 10.0-20.0 [facility]2018-06-10 08:29:00 Test Item Value Reference Range Interpretation Comments Globulin (test code = Globulin) 4.2 2.7-4.2 [place] 344898-06-10 08:29:00 Test Item Value Reference Range Interpretation Comments A/G Ratio (test code = A/G Ratio) 0.6 1 0.7-1.6 [place] 344898-06-10 08:29:00 Test Item Value Reference Range Interpretation Comments Phosphorus (test code = Phosphorus) 5.7 2.5-4.5 [facility]OknmnlvXYOCWEFNJX7185-14-68 08:29:00 Test Item Value Reference Range Interpretation Comments INR (test code = INR) 1.23 1 0.85-1.17 [facility] [place]EuwqbgzHILOIJIQLJ3298-20-14 08:29:00 Test Item Value Reference Range Interpretation Comments PTT (test code = PTT) 42.0 s 22.9-35.8 [facility] TexasEdcjtmoFIQSQNHETP8868-07-37 08:29:00 Test Item Value Reference Range Interpretation Comments PT (test code = PT) 15.6 s 12.0-14.7 [facility] TexasHmqfrfvVGKAYLGVVV9815-99-70 08:29:00 Test Item Value Reference Range Interpretation Comments Microcyte (test code = 1+ *ABN*(03/18/18 Microcyte) 3:29 AM) [facility] TexasMhkqahqZZFONRMYFC2305-85-26 08:29:00 Test Item Value Reference Range Interpretation Comments Monocytes # (test code 1.0 See_Comment [Aut omated message] The = Monocytes #) system which generated this result tra nsmitted reference range : <=0.8. The reference r yared was not used to int erpret this result as normal/abnormal . [facility] TexasLbwxznrELHLEEXYID9496-92-68 08:29:00 Test Item Value Reference Range Interpretation Comments Eosinophils # (test code 0.1 See_Comment [A utomated message] The = Eosinophils #) system whic h generated this result tra nsmitted reference range : <=0.5. The reference r yared was not used to int erpret this result as normal/abnormal . [facility] TexasIzrmdgcMKBCEBSKZM3260-95-62 08:29:00 Test Item Value Reference Range Interpretation Comments Lymphocytes # (test code = Lymphocytes 0.9 1.0-5.5 #) [facility] TexasVdkpfniABMMIQJUZK9245-18-02 08:29:00 Test Item Value Reference Range Interpretation Comments Segs-Bands # (test code = Segs-Bands #) 5.0 1.5-8.1 [facility] TexasNdayvdaMYOUFXBFMH2818-18-41 08:29:00 Test Item Value Reference Range Interpretation Comments Eosinophils (test code = 1.6 See_Comment [A utomated message] The Eosinophils) system which ge nerated this result tra nsmitted reference range : <=4.0. The reference r yared was not used to int erpret this result as normal/abnormal . [facility] TexasAeqihfuBZZWVWUPVT8269-10-68 08:29:00 Test Item Value Reference Range Interpretation Comments Lymphocytes (test code = Lymphocytes) 13.3 20.0-40.0 [facility] TexasBxfokftPMSFCFTRGG4840-85-43 08:29:00 Test Item Value Reference Range Interpretation Comments Basophils (test code = 0.5 See_Comment [Aut omated message] The Basophils) system which ge nerated this result tra nsmitted reference range : <=1.0. The reference r yared was not used to int erpret this result as normal/abnormal . [facility] TexasGtwszfcYFWKWLHZPU Test Item Value Reference Range Interpretation Comments Monocytes (test code = Monocytes) 13.9 2.0-12.0 [facility] TexasHteyjqjCZUFMSZGDO6175-19-22 08:29:00 Test Item Value Reference Range Interpretation Comments Segs (test code = Segs) 70.7 45.0-75.0 [facility] TexasRzlavunENIJNGECNK6582-36-43 08:29:00 Test Item Value Reference Range Interpretation Comments Platelet (test code = Platelet) 217 133-450 [facility] TexasMaiojssZGOXPSUSDT0641-92-59 08:29:00 Test Item Value Reference Range Interpretation Comments MPV (test code = MPV) 7.9 7.4-10.4 [facility] TexasMepxsmvQMCNBZOEBA2622-10-08 08:29:00 Test Item Value Reference Range Interpretation Comments MCHC (test code = MCHC) 33.8 32.0-36.0 [facility] TexasBkhlxikOUVDZISUNR2258-77-30 08:29:00 Test Item Value Reference Range Interpretation Comments RDW (test code = RDW) 15.0 11.5-14.5 [facility] TexasOznuycqICKXWVGBRL1705-10-50 08:29:00 Test Item Value Reference Range Interpretation Comments Hct (test code = Hct) 21.8 42.0-54.0 [facility] TexasBsowkbvCCEPVAXLWG3639-97-88 08:29:00 Test Item Value Reference Range Interpretation Comments MCV (test code = MCV) 77.9 80.0-94.0 [facility] TexasDtkpagyCKNGBGVOUI3589-18-09 08:29:00 Test Item Value Reference Range Interpretation Comments MCH (test code = MCH) 26.3 pg 27.0-31.0 [facility]XoiflvnLGFDLBXSJE1249-18-46 08:29:00 Test Item Value Reference Range Interpretation Comments RBC (test code = RBC) 2.80 4.70-6.10 [facility] HospitalSuflafqGYPGDLNVHK3531-43-72 08:29:00 Test Item Value Reference Range Interpretation Comments Hgb (test code = Hgb) 7.4 14.0-18.0 [facility] HospitalVxtdhmiWZJHVGZNKK1276-31-62 08:29:00 Test Item Value Reference Range Interpretation Comments WBC (test code = WBC) 7.1 3.7-10.4 [facility] HospitalYbukgmjZFGPRDIZIU0909-72-51 21:57:00 Test Item Value Reference Range Interpretation Comments Vanco Lvl (test code = Vanco Lvl) 18.3 [facility] HospitalannCHEM [id number] 13:00:00 Test Item Value Reference Range Interpretation Comments Lactic Acid Lvl (test code = Lactic 0.3 0.5-2.2 Acid Lvl) [facility] HospitalPtdkuerBDGYZKQMDF5175-99-92 13:00:00 Test Item Value Reference Range Interpretation Comments Hep Bs Ag (test code Negative *NA*(03/17/18 = Hep Bs Ag) 8:00 AM) [facility]annCHEM [id number] 11:05:00 Test Item Value Reference Range Interpretation Comments Lactic Acid Lvl (test code = Lactic 0.3 0.5-2.2 Acid Lvl) [facility] HospitalannCARDIAC [id number] 08:09:00 Test Item Value Reference Range Interpretation Comments CK MB Index (test 1.2 1 See_Comment [Automate d message] The code = CK MB Index) system w [facility] generated this result transmit emerson reference range : <=2.5. The reference range was not used to interpr et this result as erinn l/abnormal. [facility] HospitalannCARDIAC [id number] 08:09:00 Test Item Value Reference Range Interpretation Comments Total CK (test code = Total CK) 122 12-191 [facility] [id number] 08:09:00 Test Item Value Reference Range Interpretation Comments proBNP (test code = 38678 See_Comment [Automa emerson message] The proBNP) system which ge nerated this result tra nsmitted reference range : <=125. The reference r yared was not used to int erpret this result as erinn l/abnormal. [facility] HospitalEl TeatroCARNewton PeripheralsAC [id number] 08:09:00 Test Item Value Reference Range Interpretation Comments CK MB (test code = CK MB) 1.5 0.5-3.6 [facility] HospitalCARNewton PeripheralsAC [id number] 08:09:00 Test Item Value Reference Range Interpretation Comments Troponin-I (test code no gt See_Comment [Auto mated message] The = Troponin-I) system which g enerated this result transmit emerson reference range : <=0.40. The reference r yared was not used to interpr et this result as erinn l/abnormal. [employer] [id number] 08:09:00 Test Item Value Reference Range Interpretation Comments Ammonia (test code = Ammonia) 33.0 [employer] [id number] 08:09:00 Test Item Value Reference Range Interpretation Comments eGFR (test code = eGFR) 4 [employer] [id number] 08:09:00 Test Item Value Reference Range Interpretation Comments Alk Phos (test code = Alk Phos) 89 39-136 [employer] [id number] 08:09:00 Test Item Value Reference Range Interpretation Comments Chloride Lvl (test code = Chloride Lvl) 93 95-109 [facility] [employer] [id number] 08:09:00 Test Item Value Reference Range Interpretation Comments Globulin (test code = Globulin) 4.1 2.7-4.2 [facility] [employer] [id number] 08:09:00 Test Item Value Reference Range Interpretation Comments A/G Ratio (test code = A/G Ratio) 0.7 1 0.7-1.6 [facility] [employer] [id number] 08:09:00 Test Item Value Reference Range Interpretation Comments B/C Ratio (test code = B/C Ratio) 7 1 6-25 [facility] [employer] [id number] 08:09:00 Test Item Value Reference Range Interpretation Comments AGAP (test code = AGAP) 20.4 10.0-20.0 [facility] [employer] [id number] 08:09:00 Test Item Value Reference Range Interpretation Comments Bili Total (test code = Bili Total) 0.4 0.2-1.3 [facility]2018-06-09 08:09:00 Test Item Value Reference Range Interpretation Comments AST (test code = AST) 11 See_Comment [Auto mated message] The system which ge nerated this result transmit emerson reference range : <=37. The reference range was not used to interpr et this result as erinn l/abnormal. [facility]2018-06-09 08:09:00 Test Item Value Reference Range Interpretation Comments ALT (test code = ALT) 10 See_Comment [Auto mated message] The system which ge nerated this result transmit emerson reference range : <=65. The reference range was not used to interpr et this result as erinn l/abnormal. [facility]2018-06-09 08:09:00 Test Item Value Reference Range Interpretation Comments Albumin Lvl (test code = Albumin Lvl) 2.7 3.5-5.0 [facility]2018-06-09 08:09:00 Test Item Value Reference Range Interpretation Comments CO2 (test code = CO2) 21 24-32 [place] 344898-06-09 08:09:00 Test Item Value Reference Range Interpretation Comments Total Protein (test code = Total 6.8 6.4-8.4 Protein) [facility]2018-06-09 08:09:00 Test Item Value Reference Range Interpretation Comments Calcium Lvl (test code = Calcium Lvl) 7.5 8.5-10.5 [facility]2018-06-09 08:09:00 Test Item Value Reference Range Interpretation Comments Sodium Lvl (test code = Sodium Lvl) 130 135-145 [facility]2018-06-09 08:09:00 Test Item Value Reference Range Interpretation Comments Potassium Lvl (test code = Potassium 4.4 3.5-5.1 Lvl) [facility]2018-06-09 08:09:00 Test Item Value Reference Range Interpretation Comments Creatinine Lvl (test code = Creatinine 12.50 0.50-1.40 Lvl) [facility]2018-06-09 08:09:00 Test Item Value Reference Range Interpretation Comments BUN (test code = BUN) 85 7-22 [place] 344898-06-09 08:09:00 Test Item Value Reference Range Interpretation Comments Glucose Lvl (test code = Glucose Lvl) 172 70-99 [facility]2018-06-09 08:09:00 Test Item Value Reference Range Interpretation Comments Magnesium Lvl (test code = Magnesium 1.9 1.8-2.4 Lvl) [facility]2018-06-09 08:09:00 Test Item Value Reference Range Interpretation Comments Lipase Lvl (test code = Lipase Lvl) 65 73-393 [facility]2018-06-09 08:09:00 Test Item Value Reference Range Interpretation Comments Phosphorus (test code = Phosphorus) 7.5 2.5-4.5 [facility] TexasKbzfotrPUSRHSYQIW9942-43-14 08:09:00 Test Item Value Reference Range Interpretation Comments Monocytes # (test code 0.8 See_Comment [Aut omated message] The = Monocytes #) system which generated this result tra nsmitted reference range : <=0.8. The reference r yared was not used to int erpret this result as normal/abnormal . [facility] TexasMlzbxmwHVAYZZOWVQ9148-49-74 08:09:00 Test Item Value Reference Range Interpretation Comments Eosinophils (test code = 0.5 See_Comment [A utomated message] The Eosinophils) system which ge nerated this result tra nsmitted reference range : <=4.0. The reference r yared was not used to int erpret this result as normal/abnormal . [facility] TexasZhgtbrjJZYBEJZHKZ4092-39-86 08:09:00 Test Item Value Reference Range Interpretation Comments Lymphocytes # (test code = Lymphocytes 0.7 1.0-5.5 #) [facility] TexasNtniuddWPTXCANXGP7459-51-71 08:09:00 Test Item Value Reference Range Interpretation Comments Basophils (test code = 0.5 See_Comment [Aut omated message] The Basophils) system which ge nerated this result tra nsmitted reference range : <=1.0. The reference r yared was not used to int erpret this result as normal/abnormal . [facility] TexasEoyancwBLWVFTYQQJ9891-14-23 08:09:00 Test Item Value Reference Range Interpretation Comments Segs-Bands # (test code = Segs-Bands #) 7.4 1.5-8.1 [facility] TexasYtqyazpMUQHQHERCN7332-08-47 08:09:00 Test Item Value Reference Range Interpretation Comments Microcyte (test code = 1+ *ABN*(03/17/18 3:09 Microcyte) AM) [facility] TexasMbsmtygOCJXJYGPAL9210-88-08 08:09:00 Test Item Value Reference Range Interpretation Comments Lymphocytes (test code = Lymphocytes) 7.7 20.0-40.0 [facility] TexasAbnnrkhLWOUHHRDUS8861-35-62 08:09:00 Test Item Value Reference Range Interpretation Comments Monocytes (test code = Monocytes) 9.3 2.0-12.0 [facility] TexasIhmhsetVCGIWLHVAF2573-43-40 08:09:00 Test Item Value Reference Range Interpretation Comments Segs (test code = Segs) 82.0 45.0-75.0 [facility] TexasWfzxtfjOZPQSFVQUE0464-12-63 08:09:00 Test Item Value Reference Range Interpretation Comments INR (test code = INR) 1.26 1 0.85-1.17 [facility] TexasKlafrpiRWTYTJXAOY5872-66-15 08:09:00 Test Item Value Reference Range Interpretation Comments PT (test code = PT) 15.9 s 12.0-14.7 [facility] TexasHbackiqWOJVPYWISH4904-74-55 08:09:00 Test Item Value Reference Range Interpretation Comments MCH (test code = MCH) 26.4 pg 27.0-31.0 [facility] TexasZhgialaMBZJFXDZTI1685-83-09 08:09:00 Test Item Value Reference Range Interpretation Comments MCV (test code = MCV) 77.8 80.0-94.0 [facility] TexasWipseasDEKKRSHKAQ0602-66-40 08:09:00 Test Item Value Reference Range Interpretation Comments Hct (test code = Hct) 22.2 42.0-54.0 [facility] TexasRvcwrcdEYEKZWMTZO8603-78-46 08:09:00 Test Item Value Reference Range Interpretation Comments Hgb (test code = Hgb) 7.5 14.0-18.0 [facility] TexasHcunhccTIGERRFQUO2739-55-57 08:09:00 Test Item Value Reference Range Interpretation Comments WBC (test code = WBC) 9.0 3.7-10.4 [facility] TexasLwkxqytUCZGGSWNGA1462-67-88 08:09:00 Test Item Value Reference Range Interpretation Comments RBC (test code = RBC) 2.86 4.70-6.10 [facility] TexasGpvmxheXRGWWYWTZC8281-32-10 08:09:00 Test Item Value Reference Range Interpretation Comments MPV (test code = MPV) 7.4 7.4-10.4 [facility] HospitalRoanmjoHFYVPKWXQG9336-36-15 08:09:00 Test Item Value Reference Range Interpretation Comments Platelet (test code = Platelet) 220 133-450 [facility]fuhjjwQFNMMMIOWV4688-[facility]-27 08:09:00 Test Item Value Reference Range Interpretation Comments RDW (test code = RDW) 15.1 11.5-14.5 [facility] HospitalCsnbileNNUQFTKINH3894-98-12 08:09:00 Test Item Value Reference Range Interpretation Comments MCHC (test code = MCHC) 34.0 32.0-36.0 [place] CEYXCARDIAC [id number] 00:37:00 Test Item Value Reference Range Interpretation Comments CK MB Index (test 1.7 1 See_Comment [Automate d message] The code = CK MB Index) system w [facility] generated this result transmit emerson reference range : <=2.5. The reference range was not used to interpr et this result as erinn l/abnormal. [place] [employer] LGPCURZ0785-08-56 00:37:00 Test Item Value Reference Range Interpretation Comments CK MB (test code = CK MB) 2.9 0.5-3.6 [facility]El TeatroCARNewton PeripheralsAC [id number] 00:37:00 Test Item Value Reference Range Interpretation Comments Troponin-I (test code no gt See_Comment [Auto mated message] The = Troponin-I) system which g enerated this result transmit emerson reference range : <=0.40. The reference r yared was not used to interpr et this result as erinn l/abnormal. [place] CEYXCARNewton PeripheralsAC [id number] 00:37:00 Test Item Value Reference Range Interpretation Comments Total CK (test code = Total CK) 166 12-191 [facility] HospitalDatumateAC [id number] 00:37:00 Test Item Value Reference Range Interpretation Comments proBNP (test code = 4827 See_Comment [Automa emerson message] The proBNP) system which ge nerated this result tra nsmitted reference range : <=125. The reference r yared was not used to int erpret this result as erinn l/abnormal. [employer] [id number] 00:37:00 Test Item Value Reference Range Interpretation Comments Magnesium Lvl (test code = Magnesium 1.9 1.8-2.4 Lvl) [facility]2018-04-17 00:37:00 Test Item Value Reference Range Interpretation Comments Phosphorus (test code = Phosphorus) 9.1 2.5-4.5 [facility]2018-04-17 00:37:00 Test Item Value Reference Range Interpretation Comments eGFR (test code = eGFR) 5 [facility]2018-04-17 00:37:00 Test Item Value Reference Range Interpretation Comments Alk Phos (test code = Alk Phos) 115 39-136 [facility]2018-04-17 00:37:00 Test Item Value Reference Range Interpretation Comments AST (test code = AST) 23 See_Comment [Auto mated message] The system which ge nerated this result transmit emerson reference range : <=37. The reference range was not used to interpr et this result as erinn l/abnormal. [facility]2018-04-17 00:37:00 Test Item Value Reference Range Interpretation Comments ALT (test code = ALT) 24 See_Comment [Auto mated message] The system which ge nerated this result transmit emerson reference range : <=65. The reference range was not used to interpr et this result as erinn l/abnormal. [facility]2018-04-17 00:37:00 Test Item Value Reference Range Interpretation Comments A/G Ratio (test code = A/G Ratio) 0.8 1 0.7-1.6 [place] 344898-04-17 00:37:00 Test Item Value Reference Range Interpretation Comments Globulin (test code = Globulin) 4.0 2.7-4.2 [facility]2018-04-17 00:37:00 Test Item Value Reference Range Interpretation Comments Bili Total (test code = Bili Total) 0.4 0.2-1.3 [facility]2018-04-17 00:37:00 Test Item Value Reference Range Interpretation Comments Potassium Lvl (test code = Potassium 4.4 3.5-5.1 Lvl) [facility]2018-04-17 00:37:00 Test Item Value Reference Range Interpretation Comments Calcium Lvl (test code = Calcium Lvl) 6.7 8.5-10.5 [facility]2018-04-17 00:37:00 Test Item Value Reference Range Interpretation Comments Sodium Lvl (test code = Sodium Lvl) 130 135-145 [facility]2018-04-17 00:37:00 Test Item Value Reference Range Interpretation Comments Creatinine Lvl (test code = Creatinine 11.00 0.50-1.40 Lvl) [facility]2018-04-17 00:37:00 Test Item Value Reference Range Interpretation Comments AGAP (test code = AGAP) 17.4 10.0-20.0 [facility]2018-04-17 00:37:00 Test Item Value Reference Range Interpretation Comments CO2 (test code = CO2) 25 24-32 [facility]2018-04-17 00:37:00 Test Item Value Reference Range Interpretation Comments Chloride Lvl (test code = Chloride Lvl) 92 95-109 [facility]2018-04-17 00:37:00 Test Item Value Reference Range Interpretation Comments Albumin Lvl (test code = Albumin Lvl) 3.4 3.5-5.0 [facility]2018-04-17 00:37:00 Test Item Value Reference Range Interpretation Comments Total Protein (test code = Total 7.4 6.4-8.4 Protein) [facility]2018-04-17 00:37:00 Test Item Value Reference Range Interpretation Comments B/C Ratio (test code = B/C Ratio) 8 1 6-25 [facility]2018-04-17 00:37:00 Test Item Value Reference Range Interpretation Comments BUN (test code = BUN) 84 7-22 [facility]2018-04-17 00:37:00 Test Item Value Reference Range Interpretation Comments Glucose Lvl (test code = Glucose Lvl) 123 70-99 [facility] TexasBgpodenYSADWAESHC0507-01-01 00:37:00 Test Item Value Reference Range Interpretation Comments Lymphocytes (test code = Lymphocytes) 21.5 20.0-40.0 [facility] TexasHwtxtagNFBQOTHPTP2511-68-41 00:37:00 Test Item Value Reference Range Interpretation Comments Lymphocytes # (test code = Lymphocytes 1.6 1.0-5.5 #) [facility] TexasLpkcnesGDYNVVTMSP1600-46-04 00:37:00 Test Item Value Reference Range Interpretation Comments Eosinophils # (test code 0.3 See_Comment [A utomated message] The = Eosinophils #) system whic h generated this result tra nsmitted reference range : <=0.5. The reference r yared was not used to int erpret this result as normal/abnormal . [facility] TexasXrxggmbSPBVTSGJXL5003-51-98 00:37:00 Test Item Value Reference Range Interpretation Comments Segs (test code = Segs) 63.7 45.0-75.0 [facility] TexasPpcqhdeOTBPKOXJZA6529-44-00 00:37:00 Test Item Value Reference Range Interpretation Comments Segs-Bands # (test code = Segs-Bands #) 4.8 1.5-8.1 [facility] TexasRtuoqzeSSTFUNMALI8838-78-90 00:37:00 Test Item Value Reference Range Interpretation Comments Eosinophils (test code = 3.5 See_Comment [A utomated message] The Eosinophils) system which ge nerated this result tra nsmitted reference range : <=4.0. The reference r yared was not used to int erpret this result as normal/abnormal . [facility]RltfhkpKKDWOHKIHC1259-11-08 00:37:00 Test Item Value Reference Range Interpretation Comments Monocytes (test code = Monocytes) 10.4 2.0-12.0 [facility] TexasTtdshglNHINDGICYV4038-33-27 00:37:00 Test Item Value Reference Range Interpretation Comments Basophils (test code = 0.9 See_Comment [Aut omated message] The Basophils) system which ge nerated this result tra nsmitted reference range : <=1.0. The reference r yared was not used to int erpret this result as normal/abnormal . [facility] TexasYamikxrCQRPQQQPQO6723-08-41 00:37:00 Test Item Value Reference Range Interpretation Comments Basophils # (test code 0.1 See_Comment [Aut omated message] The = Basophils #) system which generated this result tra nsmitted reference range : <=0.2. The reference r yared was not used to int erpret this result as normal/abnormal . [facility] TexasEnwjwcgEQORVBKKXC0127-83-73 00:37:00 Test Item Value Reference Range Interpretation Comments Monocytes # (test code 0.8 See_Comment [Aut omated message] The = Monocytes #) system which generated this result tra nsmitted reference range : <=0.8. The reference r yared was not used to int erpret this result as normal/abnormal . [facility] TexasKachelsZOHSOTMDXV2554-09-80 00:37:00 Test Item Value Reference Range Interpretation Comments INR (test code = INR) 1.06 1 0.85-1.17 [place] [id number] 00:37:00 Test Item Value Reference Range Interpretation Comments PT (test code = PT) 13.8 s 12.0-14.7 [facility] TexasLukbtzbTRVQPGUTMN0962-66-30 00:37:00 Test Item Value Reference Range Interpretation Comments PTT (test code = PTT) 35.7 s 22.9-35.8 [facility] TexasWtikrlmMRQIJWWYPT4488-14-06 00:37:00 Test Item Value Reference Range Interpretation Comments Platelet (test code = Platelet) 238 133-450 [facility] TexasTqimhfbJZWOCZXBQP5252-83-25 00:37:00 Test Item Value Reference Range Interpretation Comments MPV (test code = MPV) 7.5 7.4-10.4 [facility] TexasAidgzooSWXSMVAJPN8010-13-47 00:37:00 Test Item Value Reference Range Interpretation Comments Hct (test code = Hct) 25.4 42.0-54.0 [facility] TexasBbjlcypTPUBKSLFYO1796-86-02 00:37:00 Test Item Value Reference Range Interpretation Comments MCV (test code = MCV) 80.3 80.0-94.0 [facility] TexasZcxbmlhZOWGXWUCTA0847-70-63 00:37:00 Test Item Value Reference Range Interpretation Comments MCH (test code = MCH) 28.2 pg 27.0-31.0 [facility] TexasYyqwacmBGTOUSKCWZ5253-95-83 00:37:00 Test Item Value Reference Range Interpretation Comments Hgb (test code = Hgb) 8.9 14.0-18.0 [facility] TexasQtqicrcPRIMUNTMDN3992-45-44 00:37:00 Test Item Value Reference Range Interpretation Comments MCHC (test code = MCHC) 35.1 32.0-36.0 [facility] TexasFfgrjfsLJCSBOAAXB4700-42-25 00:37:00 Test Item Value Reference Range Interpretation Comments RDW (test code = RDW) 13.9 11.5-14.5 [facility] TexasThjbbgdOCGBAKRJOO5106-52-24 00:37:00 Test Item Value Reference Range Interpretation Comments WBC (test code = WBC) 7.6 3.7-10.4 [facility]ff[facility]G4540[facility]-19 00:37:00 Test Item Value Reference Range Interpretation Comments RBC (test code = RBC) 3.16 4.70-6.10 [facility] [id number] 00:37:00 Test Item Value Reference Range Interpretation Comments UA Urobilinogen (test code = UA <=1.0 mg/dL 0.1-1.0 Urobilinogen) [facility] [id number] 00:37:00 Test Item Value Reference Range Interpretation Comments UA Glucose (test code = UA Glucose) 50 [facility] [id number] 00:37:00 Test Item Value Reference Range Interpretation Comments UA Color (test code = UA Color) STRAW [facility] AND [id number] 00:37:00 Test Item Value Reference Range Interpretation Comments UA Sq Epi (test code = UA Sq Epi) Few /LPF [facility] [id number] 00:37:00 Test Item Value Reference Range Interpretation Comments UA WBC (test code = 8 See_Comment [Automa emerson message] The UA WBC) system which ge nerated this result transmit emerson reference range : <=5. The reference range was not used to interpr et this result as erinn l/abnormal. [facility] [id number] 00:37:00 Test Item Value Reference Range Interpretation Comments UA Mucus (test code = UA Mucus) Few /LPF [facility] [id number] 00:37:00 Test Item Value Reference Range Interpretation Comments UA Bacteria (test code = UA Moderate /HPF Bacteria) [facility] [id number] 00:37:00 Test Item Value Reference Range Interpretation Comments UA Leuk Est (test code Small *ABN*(01/22/18 = UA Leuk Est) 7:37 PM) [facility] [id number] 00:37:00 Test Item Value Reference Range Interpretation Comments UA Protein (test code = UA >=300 mg/dL Protein) [facility] [id number] 00:37:00 Test Item Value Reference Range Interpretation Comments UA Ketones (test code = UA Negative mg/dL Ketones) [facility] [id number] 00:37:00 Test Item Value Reference Range Interpretation Comments UA pH (test code = UA pH) 6.0 1 5.0-8.0 [facility] AND [id number] 00:37:00 Test Item Value Reference Range Interpretation Comments UA Turbidity (test code = Clear (01/22/18 7:37 UA Turbidity) PM) [facility] AND [id number] 00:37:00 Test Item Value Reference Range Interpretation Comments UA Spec Grav (test code = UA Spec 1.005 1 Grav) [facility] [id number] 00:37:00 Test Item Value Reference Range Interpretation Comments UA Nitrite (test code Negative (01/22/18 7:37 = UA Nitrite) PM) [facility] AND [id number] 00:37:00 Test Item Value Reference Range Interpretation Comments UA Blood (test code = Small *ABN*(01/22/18 UA Blood) 7:37 PM) [facility] AND [id number] 00:37:00 Test Item Value Reference Range Interpretation Comments UA Bili (test code = Negative *NA*(01/22/18 UA Bili) 7:37 PM) [facility]2018-03-14 10:09:00 Test Item Value Reference Range Interpretation Comments Magnesium Lvl (test code = Magnesium 1.8 1.8-2.4 Lvl) [facility]2018-03-14 10:09:00 Test Item Value Reference Range Interpretation Comments eGFR (test code = eGFR) 4 [facility]2018-03-14 10:09:00 Test Item Value Reference Range Interpretation Comments Creatinine Lvl (test code = Creatinine 11.60 0.50-1.40 Lvl) [facility]2018-03-14 10:09:00 Test Item Value Reference Range Interpretation Comments Calcium Lvl (test code = Calcium Lvl) 6.9 8.5-10.5 [facility]2018-03-14 10:09:00 Test Item Value Reference Range Interpretation Comments CO2 (test code = CO2) 27 24-32 [facility]2018-03-14 10:09:00 Test Item Value Reference Range Interpretation Comments Sodium Lvl (test code = Sodium Lvl) 133 135-145 [facility]2018-03-14 10:09:00 Test Item Value Reference Range Interpretation Comments Chloride Lvl (test code = Chloride Lvl) 94 95-109 [facility]2018-03-14 10:09:00 Test Item Value Reference Range Interpretation Comments Potassium Lvl (test code = Potassium 3.7 3.5-5.1 Lvl) [facility]2018-03-14 10:09:00 Test Item Value Reference Range Interpretation Comments BUN (test code = BUN) 104 7-22 [facility]2018-03-14 10:09:00 Test Item Value Reference Range Interpretation Comments Glucose Lvl (test code = Glucose Lvl) 85 70-99 [facility]2018-03-14 10:09:00 Test Item Value Reference Range Interpretation Comments AGAP (test code = AGAP) 15.7 10.0-20.0 [facility] [id number] 10:09:00 Test Item Value Reference Range Interpretation Comments Eosinophils # (test code 0.2 See_Comment [A utomated message] The = Eosinophils #) system whic h generated this result tra nsmitted reference range : <=0.5. The reference r yared was not used to int erpret this result as normal/abnormal . [facility] TexasQevhimhRQUNOXQQNY8647-31-10 10:09:00 Test Item Value Reference Range Interpretation Comments Monocytes # (test code 0.6 See_Comment [Aut omated message] The = Monocytes #) system which generated this result tra nsmitted reference range : <=0.8. The reference r yared was not used to int erpret this result as normal/abnormal . [facility] TexasVxaolurTLHHYJDRUU5562-12-90 10:09:00 Test Item Value Reference Range Interpretation Comments Microcyte (test code = 1+ *ABN*(12/20/17 Microcyte) 5:09 AM) [facility] TexasAmkhxgcWZOFFZGRLK8643-55-89 10:09:00 Test Item Value Reference Range Interpretation Comments Segs (test code = Segs) 71.0 45.0-75.0 [facility] TexasGxbhtbyJMPKHAWVRZ7119-10-06 10:09:00 Test Item Value Reference Range Interpretation Comments Lymphocytes # (test code = Lymphocytes 1.0 1.0-5.5 #) [facility] TexasForrorzVIFQDKPCMG9578-56-85 10:09:00 Test Item Value Reference Range Interpretation Comments Basophils (test code = 0.8 See_Comment [Aut omated message] The Basophils) system which ge nerated this result tra nsmitted reference range : <=1.0. The reference r yared was not used to int erpret this result as normal/abnormal . [facility] TexasKziqokqLXDATFCBLQ7201-82-60 10:09:00 Test Item Value Reference Range Interpretation Comments Segs-Bands # (test code = Segs-Bands #) 4.6 1.5-8.1 [facility] TexasBeeafjjLTFBKQEFTJ7762-55-65 10:09:00 Test Item Value Reference Range Interpretation Comments Lymphocytes (test code = Lymphocytes) 15.7 20.0-40.0 [facility] TexasXaclvmrJWWRMPLULW4929-73-50 10:09:00 Test Item Value Reference Range Interpretation Comments Eosinophils (test code = 3.1 See_Comment [A utomated message] The Eosinophils) system which ge nerated this result tra nsmitted reference range : <=4.0. The reference r yared was not used to int erpret this result as normal/abnormal . [facility] TexasPcyqdiyVCHVHTRFMQ7104-86-32 10:09:00 Test Item Value Reference Range Interpretation Comments Monocytes (test code = Monocytes) 9.4 2.0-12.0 [facility] TexasKukjumpRQIMMZGIAU3023-18-90 10:09:00 Test Item Value Reference Range Interpretation Comments Platelet (test code = Platelet) 193 133-450 [facility] TexasGkxjlegFMVTAWEVJK9033-63-78 10:09:00 Test Item Value Reference Range Interpretation Comments MCV (test code = MCV) 77.5 80.0-94.0 [facility] TexasKzvvsinHJTWBYVGEX8828-69-66 10:09:00 Test Item Value Reference Range Interpretation Comments MCHC (test code = MCHC) 35.5 32.0-36.0 [facility] TexasPxlijyvUTIJECVGCL9478-06-73 10:09:00 Test Item Value Reference Range Interpretation Comments MCH (test code = MCH) 27.5 pg 27.0-31.0 [facility] TexasFuddrxiMBTZWHOUVC0370-14-08 10:09:00 Test Item Value Reference Range Interpretation Comments RDW (test code = RDW) 14.1 11.5-14.5 [facility] TexasTxmqvluIJZYMSTFMF8232-98-79 10:09:00 Test Item Value Reference Range Interpretation Comments MPV (test code = MPV) 7.7 7.4-10.4 [facility]KxmvklvXWTJLEXPLU6476-44-79 10:09:00 Test Item Value Reference Range Interpretation Comments Hct (test code = Hct) 23.5 42.0-54.0 [facility] HospitalKsoiswvLWKTNSGTLH7214-04-23 10:09:00 Test Item Value Reference Range Interpretation Comments Hgb (test code = Hgb) 8.4 14.0-18.0 [facility] HospitalGfqpjtpJMNQQDTHBM6698-00-54 10:09:00 Test Item Value Reference Range Interpretation Comments RBC (test code = RBC) 3.03 4.70-6.10 [facility]FeddbhuHJEUYFZJXD3783-49-53 10:09:00 Test Item Value Reference Range Interpretation Comments WBC (test code = WBC) 6.5 3.7-10.4 [facility] HospitalannPARATHYROID [id number] 10:09:00 Test Item Value Reference Range Interpretation Comments Ca Norm WB (test code = Ca Norm WB) 0.86 1.05-1.25 [facility]annPARATHYROID [id number] 10:09:00 Test Item Value Reference Range Interpretation Comments Ca Ion WB (test code = Ca Ion WB) 0.86 1.05-1.25 [facility]annURINE AND [id number] 17:00:00 Test Item Value Reference Range Interpretation Comments Occult Bld Stl (test Positive *ABN*(12/19/17 code = Occult Bld Stl) 12:00 PM) [facility]CHEM [id number] 12:14:00 Test Item Value Reference Range Interpretation Comments Phosphorus (test code = Phosphorus) 8.2 2.5-4.5 [facility]annCHEM [id number] 12:14:00 Test Item Value Reference Range Interpretation Comments A/G Ratio (test code = A/G Ratio) 0.8 1 0.7-1.6 [facility]annCHEM [id number] 12:14:00 Test Item Value Reference Range Interpretation Comments AST (test code = AST) 9 See_Comment [Auto mated message] The system which ge nerated this result transmit emerson reference range : <=37. The reference range was not used to interpr et this result as erinn l/abnormal. [facility]annCHEM [id number] 12:14:00 Test Item Value Reference Range Interpretation Comments ALT (test code = ALT) 10 See_Comment [Auto mated message] The system which ge nerated this result transmit emerson reference range : <=65. The reference range was not used to interpr et this result as erinn l/abnormal. [facility]2018-03-13 12:14:00 Test Item Value Reference Range Interpretation Comments Globulin (test code = Globulin) 3.5 2.7-4.2 [facility]2018-03-13 12:14:00 Test Item Value Reference Range Interpretation Comments Albumin Lvl (test code = Albumin Lvl) 2.7 3.5-5.0 [facility]2018-03-13 12:14:00 Test Item Value Reference Range Interpretation Comments eGFR (test code = eGFR) 4 [facility]2018-03-13 12:14:00 Test Item Value Reference Range Interpretation Comments Alk Phos (test code = Alk Phos) 100 39-136 [facility]2018-03-13 12:14:00 Test Item Value Reference Range Interpretation Comments Bili Total (test code = Bili Total) 0.3 0.2-1.3 [facility]2018-03-13 12:14:00 Test Item Value Reference Range Interpretation Comments Glucose Lvl (test code = Glucose Lvl) 88 70-99 [facility]2018-03-13 12:14:00 Test Item Value Reference Range Interpretation Comments Potassium Lvl (test code = Potassium 3.6 3.5-5.1 Lvl) [facility]2018-03-13 12:14:00 Test Item Value Reference Range Interpretation Comments Chloride Lvl (test code = Chloride Lvl) 95 95-109 [facility]2018-03-13 12:14:00 Test Item Value Reference Range Interpretation Comments Sodium Lvl (test code = Sodium Lvl) 135 135-145 [facility]2018-03-13 12:14:00 Test Item Value Reference Range Interpretation Comments BUN (test code = BUN) 103 7-22 [facility]2018-03-13 12:14:00 Test Item Value Reference Range Interpretation Comments Creatinine Lvl (test code = Creatinine 11.70 0.50-1.40 Lvl) [facility]2018-03-13 12:14:00 Test Item Value Reference Range Interpretation Comments B/C Ratio (test code = B/C Ratio) 9 1 6-25 [facility]2018-03-13 12:14:00 Test Item Value Reference Range Interpretation Comments Total Protein (test code = Total 6.2 6.4-8.4 Protein) [facility]2018-03-13 12:14:00 Test Item Value Reference Range Interpretation Comments Calcium Lvl (test code = Calcium Lvl) 6.5 8.5-10.5 [facility]2018-03-13 12:14:00 Test Item Value Reference Range Interpretation Comments AGAP (test code = AGAP) 14.6 10.0-20.0 [facility]2018-03-13 12:14:00 Test Item Value Reference Range Interpretation Comments CO2 (test code = CO2) 29 24-32 [facility]2018-03-13 12:14:00 Test Item Value Reference Range Interpretation Comments Ca Ion WB (test code = Ca Ion WB) 0.88 1.05-1.25 [facility]2018-03-13 12:14:00 Test Item Value Reference Range Interpretation Comments Ca Norm WB (test code = Ca Norm WB) 0.85 1.05-1.25 [facility]2018-03-13 10:02:00 Test Item Value Reference Range Interpretation Comments eGFR (test code = eGFR) 4 [facility]2018-03-13 10:02:00 Test Item Value Reference Range Interpretation Comments Glucose Lvl (test code = Glucose Lvl) 92 70-99 [facility]2018-03-13 10:02:00 Test Item Value Reference Range Interpretation Comments Sodium Lvl (test code = Sodium Lvl) 138 135-145 [facility]2018-03-13 10:02:00 Test Item Value Reference Range Interpretation Comments Potassium Lvl (test code = Potassium 3.6 3.5-5.1 Lvl) [facility]2018-03-13 10:02:00 Test Item Value Reference Range Interpretation Comments BUN (test code = BUN) 97 7-22 [facility]2018-03-13 10:02:00 Test Item Value Reference Range Interpretation Comments Creatinine Lvl (test code = Creatinine 11.80 0.50-1.40 Lvl) [facility]2018-03-13 10:02:00 Test Item Value Reference Range Interpretation Comments Calcium Lvl (test code = Calcium Lvl) 6.8 8.5-10.5 [facility]2018-03-13 10:02:00 Test Item Value Reference Range Interpretation Comments CO2 (test code = CO2) 27 24-32 [facility]2018-03-13 10:02:00 Test Item Value Reference Range Interpretation Comments AGAP (test code = AGAP) 18.6 10.0-20.0 [facility]2018-03-13 10:02:00 Test Item Value Reference Range Interpretation Comments Chloride Lvl (test code = Chloride Lvl) 96 95-109 [facility]2018-03-13 10:02:00 Test Item Value Reference Range Interpretation Comments Magnesium Lvl (test code = Magnesium 1.8 1.8-2.4 Lvl) [facility] TexasCwliytcMZISOEEIGQ7981-41-98 10:02:00 Test Item Value Reference Range Interpretation Comments RDW (test code = RDW) 14.3 11.5-14.5 [facility] TexasQyzrhlxTIDWCTUXUT1994-17-88 10:02:00 Test Item Value Reference Range Interpretation Comments MCHC (test code = MCHC) 34.5 32.0-36.0 [facility] TexasRmdakqgHWKQFTIRLV7216-24-54 10:02:00 Test Item Value Reference Range Interpretation Comments MCH (test code = MCH) 26.8 pg 27.0-31.0 [facility] TexasNxtiikzUMPFSOLQCX0960-71-79 10:02:00 Test Item Value Reference Range Interpretation Comments MPV (test code = MPV) 8.0 7.4-10.4 [facility] TexasBmptuhwFKQODCSCYF1449-13-08 10:02:00 Test Item Value Reference Range Interpretation Comments Platelet (test code = Platelet) 200 133-450 [facility] TexasLvsszntYLQIPLKQGQ6979-34-78 10:02:00 Test Item Value Reference Range Interpretation Comments MCV (test code = MCV) 77.7 80.0-94.0 [facility] TexasAcmsejqKMXJHNDFIF7364-06-85 10:02:00 Test Item Value Reference Range Interpretation Comments Hct (test code = Hct) 24.7 42.0-54.0 [facility] TexasWvyndvmXWTELWBGGR6910-16-11 10:02:00 Test Item Value Reference Range Interpretation Comments Hgb (test code = Hgb) 8.5 14.0-18.0 [facility] TexasXulyjrzVLJLXIRQFK1002-64-58 10:02:00 Test Item Value Reference Range Interpretation Comments RBC (test code = RBC) 3.17 4.70-6.10 [facility] TexasYkwhawiKANSPHHGLD5770-02-67 10:02:00 Test Item Value Reference Range Interpretation Comments WBC (test code = WBC) 6.6 3.7-10.4 [facility] TexasGnuujwbMSFKXTTMLJ8615-81-72 10:02:00 Test Item Value Reference Range Interpretation Comments Monocytes # (test code 0.7 See_Comment [Aut omated message] The = Monocytes #) system which generated this result tra nsmitted reference range : <=0.8. The reference r yared was not used to int erpret this result as normal/abnormal . [facility] TexasFimojitRFUTILRMRY0567-41-93 10:02:00 Test Item Value Reference Range Interpretation Comments Eosinophils # (test code 0.2 See_Comment [A utomated message] The = Eosinophils #) system whic h generated this result tra nsmitted reference range : <=0.5. The reference r yared was not used to int erpret this result as normal/abnormal . [facility] TexasRzhjujiZYDQPDWBCK0665-60-55 10:02:00 Test Item Value Reference Range Interpretation Comments Microcyte (test code = 1+ *ABN*(12/19/17 Microcyte) 5:02 AM) [facility] TexasWfkiomrJCMUAPDEVW6488-93-14 10:02:00 Test Item Value Reference Range Interpretation Comments Lymphocytes # (test code = Lymphocytes 1.0 1.0-5.5 #) [facility] TexasPunzwzxWVZUZNJSVU3123-29-31 10:02:00 Test Item Value Reference Range Interpretation Comments Basophils (test code = 0.6 See_Comment [Aut omated message] The Basophils) system which ge nerated this result tra nsmitted reference range : <=1.0. The reference r yared was not used to int erpret this result as normal/abnormal . [facility] TexasZmtlcjrXXMHIZNIXF9099-96-88 10:02:00 Test Item Value Reference Range Interpretation Comments Segs-Bands # (test code = Segs-Bands #) 4.7 1.5-8.1 [facility] TexasIlwvyisOHWGUBWFLD6097-10-43 10:02:00 Test Item Value Reference Range Interpretation Comments Monocytes (test code = Monocytes) 10.3 2.0-12.0 [facility] TexasYgvvrovLKZFHYPYCD4551-56-69 10:02:00 Test Item Value Reference Range Interpretation Comments Eosinophils (test code = 2.9 See_Comment [A utomated message] The Eosinophils) system which ge nerated this result tra nsmitted reference range : <=4.0. The reference r yared was not used to int erpret this result as normal/abnormal . [facility] TexasNpbkxjsRTOWFXMVXL9566-75-04 10:02:00 Test Item Value Reference Range Interpretation Comments Lymphocytes (test code = Lymphocytes) 15.3 20.0-40.0 [facility] TexasKlhhgseYVOBDSQZVU1671-35-20 10:02:00 Test Item Value Reference Range Interpretation Comments Segs (test code = Segs) 70.9 45.0-75.0 [facility]2018-03-13 10:02:00 Test Item Value Reference Range Interpretation Comments Ca Ion WB (test code = Ca Ion WB) 0.88 1.05-1.25 [facility]2018-03-13 10:02:00 Test Item Value Reference Range Interpretation Comments Ca Norm WB (test code = Ca Norm WB) 0.88 1.05-1.25 [facility]2018-03-12 09:55:00 Test Item Value Reference Range Interpretation Comments Magnesium Lvl (test code = Magnesium 1.9 1.8-2.4 Lvl) [facility]2018-03-12 09:55:00 Test Item Value Reference Range Interpretation Comments Phosphorus (test code = Phosphorus) 8.8 2.5-4.5 [facility] TexasVyxwjzqQKXNYNYASH8840-30-82 09:32:00 Test Item Value Reference Range Interpretation Comments Microcyte (test code = 1+ *ABN*(12/17/17 Microcyte) 4:32 AM) [facility] TexasZzulugtIQLLUYHEWV3671-28-36 09:32:00 Test Item Value Reference Range Interpretation Comments Eosinophils # (test code 0.2 See_Comment [A utomated message] The = Eosinophils #) system whic h generated this result tra nsmitted reference range : <=0.5. The reference r yared was not used to int erpret this result as normal/abnormal . [facility] TexasEzwaiogEBANEXAGWF4876-74-92 09:32:00 Test Item Value Reference Range Interpretation Comments Monocytes # (test code 0.6 See_Comment [Aut omated message] The = Monocytes #) system which generated this result tra nsmitted reference range : <=0.8. The reference r yared was not used to int erpret this result as normal/abnormal . [facility] TexasIrtivsbBZQRKNXBPS0917-75-26 09:32:00 Test Item Value Reference Range Interpretation Comments Lymphocytes # (test code = Lymphocytes 1.0 1.0-5.5 #) [facility] TexasLzgxmlrUGBLSUFWFX3910-98-75 09:32:00 Test Item Value Reference Range Interpretation Comments Segs-Bands # (test code = Segs-Bands #) 3.9 1.5-8.1 [facility] TexasHnklacvXHEOKBEEMN3126-86-69 09:32:00 Test Item Value Reference Range Interpretation Comments Basophils (test code = 0.6 See_Comment [Aut omated message] The Basophils) system which ge nerated this result tra nsmitted reference range : <=1.0. The reference r yared was not used to int erpret this result as normal/abnormal . [facility] TexasDqwgqtxIQCHINWFKE0957-40-72 09:32:00 Test Item Value Reference Range Interpretation Comments Eosinophils (test code = 2.7 See_Comment [A utomated message] The Eosinophils) system which ge nerated this result tra nsmitted reference range : <=4.0. The reference r yared was not used to int erpret this result as normal/abnormal . [facility] TexasUbmqgtlZKQNJPFYBY0881-15-04 09:32:00 Test Item Value Reference Range Interpretation Comments Monocytes (test code = Monocytes) 10.4 2.0-12.0 [facility] TexasMhxvstpUWVHWHONJZ6247-48-32 09:32:00 Test Item Value Reference Range Interpretation Comments Lymphocytes (test code = Lymphocytes) 18.1 20.0-40.0 [facility] TexasXkuvvlnEFCKRKPHUF8500-51-88 09:32:00 Test Item Value Reference Range Interpretation Comments Segs (test code = Segs) 68.2 45.0-75.0 [facility] TexasLykacpuAIAABALQMA6880-47-17 09:32:00 Test Item Value Reference Range Interpretation Comments Platelet (test code = Platelet) 213 133-450 [facility] TexasNqmendeAMPHRELDQV8650-04-44 09:32:00 Test Item Value Reference Range Interpretation Comments RDW (test code = RDW) 14.3 11.5-14.5 [facility] TexasSfcsikhJIFCWCFLYI9647-40-71 09:32:00 Test Item Value Reference Range Interpretation Comments MPV (test code = MPV) 8.0 7.4-10.4 [facility] TexasNwzfhjnXJZWFACBGQ2742-32-59 09:32:00 Test Item Value Reference Range Interpretation Comments MCH (test code = MCH) 27.4 pg 27.0-31.0 [facility] TexasDozawtfPYBQZFEDIV4107-47-40 09:32:00 Test Item Value Reference Range Interpretation Comments MCV (test code = MCV) 78.6 80.0-94.0 [facility] TexasKcahslhSUJCQGKOCF2428-74-23 09:32:00 Test Item Value Reference Range Interpretation Comments Hct (test code = Hct) 22.8 42.0-54.0 [facility] TexasLefvuuwGMDGVHSYDC2446-98-08 09:32:00 Test Item Value Reference Range Interpretation Comments MCHC (test code = MCHC) 34.9 32.0-36.0 [facility] TexasFwxtckkRABCXEPTCJ6332-32-74 09:32:00 Test Item Value Reference Range Interpretation Comments Hgb (test code = Hgb) 7.9 14.0-18.0 [facility] TexasOijzcdmEUGRKQAUMM3872-03-06 09:32:00 Test Item Value Reference Range Interpretation Comments RBC (test code = RBC) 2.90 4.70-6.10 [facility] TexasAefquwkIHBHQVMHAR9334-56-78 09:32:00 Test Item Value Reference Range Interpretation Comments WBC (test code = WBC) 5.7 3.7-10.4 [facility] TexasPcndilmJBBFRGPVXS0973-03-08 09:32:00 Test Item Value Reference Range Interpretation Comments Sed Rate (test code = 80 See_Comment [Auto mated message] The Sed Rate) system which ge nerated this result transmit emerson reference range : <=15. The reference range was not used to interpr et this result as erinn l/abnormal. [facility] HospitalBpvfplzCZACGXDFXH4108-97-02 09:32:00 Test Item Value Reference Range Interpretation Comments Tot Prot (SPE) (test code = Tot Prot 7.0 6.4-8.4 (SPE)) [facility] HospitalXvprqyzVWSWOOXDPJ6671-17-92 09:32:00 Test Item Value Reference Range Interpretation Comments SPE Interp (test Total protein and serum code = SPE Interp) albumin are within normal limits. Serum capillary protein electrophoresis shows an elevated alpha-1 globulin fraction. No monoclonal proteins are identified. The electrophoretic pattern is consistent with the acute phase of an inflammatory process. Clinical correlation is required. Interpretation performed at [facility]. [facility] [place], TXBpvsfvyIQKXAIAFOM5406-11-08 09:32:00 Test Item Value Reference Range Interpretation Comments Gamma Glob (test code = Gamma Glob) 1.13 0.71-1.[address] [facility] [place], TXKasyuqmOFBMFEENYP1935-82-79 09:32:00 Test Item Value Reference Range Interpretation Comments Beta Glob (test code = Beta Glob) 0.83 0.50-1.[address] [facility] [place], TXFszldjyRFVSYBPDHH3693-84-27 09:32:00 Test Item Value Reference Range Interpretation Comments Alpha 2 Glob (test code = Alpha 2 Glob) 0.85 0.45-1.[address] [facility] [place], TXHqolfbnOFGRQKBKPS7287-92-85 09:32:00 Test Item Value Reference Range Interpretation Comments Alpha 1 Glob (test code = Alpha 1 Glob) 0.48 0.18-0.[address] [facility] [place], TXShvnoxzZAGUPBDEZL7408-18-53 09:32:00 Test Item Value Reference Range Interpretation Comments Albumin (SPE) (test code = Albumin 3.72 3.57-5.55 (SPE)) [facility] [place], TXNexyqciFUSQDJCNTR4197-54-57 09:32:00 Test Item Value Reference Range Interpretation Comments Beta % (test code = Beta %) 11.8 7.8-13.7 [facility] HospitalIvakqkxKFVICYLITN6408-25-73 09:32:00 Test Item Value Reference Range Interpretation Comments Gamma % (test code = Gamma %) 16.2 11.1-18.7 [facility] HospitalVnpmlitJLZFMWRQXA2052-51-09 09:32:00 Test Item Value Reference Range Interpretation Comments Alpha 2 % (test code = Alpha 2 %) 12.1 7.0-11.9 [facility] HospitalSccuwdpREKWSOWGGD6201-32-74 09:32:00 Test Item Value Reference Range Interpretation Comments Alpha 1 % (test code = Alpha 1 %) 6.8 2.8-4.9 [facility] HospitalEfsxbjgYHCYPGKXUS7541-58-84 09:32:00 Test Item Value Reference Range Interpretation Comments Albumin % (test code = Albumin %) 53.1 55.8-66.[address] [facility] [place], TXQaskucvWHPCWEXNBG0419-31-95 09:32:00 Test Item Value Reference Range Interpretation Comments C3 Complement (test code = C3 91 88-201 Complement) [facility] [place], TXXmxccozSRZOLUGCUY4596-87-19 09:32:00 Test Item Value Reference Range Interpretation Comments MIKE Ser Pattern (test See interpretation. code = MIKE Ser Pattern) [facility] [place], TXFuszdtrVFCAUDJLVY6015-93-17 09:32:00 Test Item Value Reference Range Interpretation Comments MIKE Ser Interp Serum immunofixation (test code = MIKE electrophoresis reveals a Ser Interp) polyclonal pattern of immunoglobulins. No monoclonal proteins are identified. Interpretation performed at [facility]. [facility] [place], TXNnvcirdEXSSADBSQR4406-88-45 09:32:00 Test Item Value Reference Range Interpretation Comments C4 Complement (test code = C4 29 16-47 Complement) [facility] [place], TXYqmfndiETBDKMJLZY3371-13-84 09:32:00 Test Item Value Reference Range Interpretation Comments P-ANCA (test code = Negative (12/17/17 4:32 P-ANCA) AM) [facility] [place], TXMdvmoxfYBCMXDUFGN9509-87-90 09:32:00 Test Item Value Reference Range Interpretation Comments C-ANCA (test code = Negative (12/17/17 4:32 C-ANCA) AM) [facility] [place], TXIaedgsbJEKLVBBZPS8538-08-51 09:32:00 Test Item Value Reference Range Interpretation Comments Hep Bs Ag (test code Negative *NA*(12/17/17 = Hep Bs Ag) 4:32 AM) [facility] [place], TXJmrcbemVMMBGUYZDP2571-31-39 09:32:00 Test Item Value Reference Range Interpretation Comments Hep Bs Ab (test code = Hep Bs Ab) no gt [facility] [place], TXUlueojaKGXLIJNEZF1668-66-37 09:32:00 Test Item Value Reference Range Interpretation Comments Hep B Core Ab (test Negative *NA*(12/17/17 code = Hep B Core Ab) 4:32 AM) [facility] [place], TXXalgfwlLFUTIOLAZF8161-39-50 09:32:00 Test Item Value Reference Range Interpretation Comments DNA Ab (DS) (test Negative (12/17/17 4:32 code = DNA Ab (DS)) AM) [facility] [place], TXMskstkxHEXXATJLLY2574-88-06 09:32:00 Test Item Value Reference Range Interpretation Comments [place]/Lambda Free Light Chains Ratio 3.42 0.26-1.65 (test code = [place]/Lambda Free Light Chains Ratio) [facility] [place], TXWlrtsinDHJLEHOXYF3912-11-96 09:32:00 Test Item Value Reference Range Interpretation Comments [place] Free Light Chains (test code = 203.40 3.30-19.40 [place] Free [place] Chains) [facility] [place], TXUdbcmdhKVJWKDRSXA5346-21-02 09:32:00 Test Item Value Reference Range Interpretation Comments Lambda Free Light Chains (test code = 59.41 5.70-26.30 Lambda Free Light Chains) [facility] [place], TXBaxopydOVFKNWICBV2868-94-82 09:32:00 Test Item Value Reference Range Interpretation Comments CHRISTINA (test code = CHRISTINA) Negative (12/17/17 4:32 AM) [facility] [place], TXDzwtnscCLQGRABKDX3155-90-75 09:32:00 Test Item Value Reference Range Interpretation Comments RF Qnt (test code = no gt See_Comment [Automa emerson message] The RF Qnt) system which ge nerated this result transmit emerson reference range : <=20. The reference range was not used to interpr et this result as erinn l/abnormal. [facility]2018-03-09 22:29:00 Test Item Value Reference Range Interpretation Comments % Satur Fe (test code = % Satur Fe) 12 12-57 [facility]2018-03-09 22:29:00 Test Item Value Reference Range Interpretation Comments UIBC (test code = UIBC) 238 110-370 [facility]2018-03-09 22:29:00 Test Item Value Reference Range Interpretation Comments TIBC (test code = TIBC) 272 228-428 [facility]2018-03-09 22:29:00 Test Item Value Reference Range Interpretation Comments Iron (test code = Iron) 34 45-160 [facility]2018-03-09 22:29:00 Test Item Value Reference Range Interpretation Comments Ferritin Lvl (test code = Ferritin Lvl) 266 22-930 [facility]2018-03-09 22:29:00 Test Item Value Reference Range Interpretation Comments Vitamin B12 Lvl (test code = Vitamin [phone] B12 Lvl) [facility]2018-03-09 22:29:00 Test Item Value Reference Range Interpretation Comments Folate Lvl (test code = Folate Lvl) 19.0 [facility] RemarketerannCHEM [id number] 22:29:00 Test Item Value Reference Range Interpretation Comments Vitamin D, 25-OH, Total (test code = 12.3 30.0-100.0 Vitamin D, 25-OH, Total) [facility]annPARATHYROID JNABRAE7652-36-60 22:29:00 Test Item Value Reference Range Interpretation Comments PTH Intact (test code = PTH Intact) 396.7 11.1-79.5 [facility] HospitalRcmzstnUNZSZRHFTB8572-14-41 20:13:00 Test Item Value Reference Range Interpretation Comments Retic Auto (test code = Retic Auto) 1.5 0.5-1.5 [facility] RemarketerannCARDIAC PKTBHFT4853-83-55 20:12:00 Test Item Value Reference Range Interpretation Comments Troponin-I (test code no gt See_Comment [Auto mated message] The = Troponin-I) system which g enerated this result transmit emerson reference range : <=0.40. The reference r yared was not used to interpr et this result as erinn l/abnormal. [facility] CEYXCARDIAC [id number] 20:12:00 Test Item Value Reference Range Interpretation Comments Total CK (test code = Total CK) 380 12-191 [facility] HospitalannCARNewton PeripheralsAC RTCOPJM2628-46-46 20:12:00 Test Item Value Reference Range Interpretation Comments CK MB (test code = CK MB) 5.4 0.5-3.6 [facility] CenterannCARNewton PeripheralsAC KBDYYJQ0345-35-89 20:12:00 Test Item Value Reference Range Interpretation Comments CK MB Index (test 1.4 1 See_Comment [Automate d message] The code = CK MB Index) system w [facility] generated this result transmit emerson reference range : <=2.5. The reference range was not used to interpr et this result as erinn l/abnormal. [facility] [employer] [id number] 20:12:00 Test Item Value Reference Range Interpretation Comments Phosphorus (test code = >13.5 mg/dL 2.5-4.5 Phosphorus) [place] [employer] RemarketerannCHEM KGZNL3204-73-05 20:12:00 Test Item Value Reference Range Interpretation Comments Bili Total (test code = Bili Total) 0.4 0.2-1.3 [employer]2018-03-09 20:12:00 Test Item Value Reference Range Interpretation Comments ALT (test code = ALT) 14 See_Comment [Auto mated message] The system which ge nerated this result transmit emerson reference range : <=65. The reference range was not used to interpr et this result as erinn l/abnormal. [place] [employer]2018-03-09 20:12:00 Test Item Value Reference Range Interpretation Comments AST (test code = AST) 17 See_Comment [Auto mated message] The system which ge nerated this result transmit emerson reference range : <=37. The reference range was not used to interpr et this result as erinn l/abnormal. [employer]2018-03-09 20:12:00 Test Item Value Reference Range Interpretation Comments Alk Phos (test code = Alk Phos) 115 39-136 [place] [employer]2018-03-09 20:12:00 Test Item Value Reference Range Interpretation Comments Albumin Lvl (test code = Albumin Lvl) 3.4 3.5-5.0 [place] [employer]2018-03-09 20:12:00 Test Item Value Reference Range Interpretation Comments Total Protein (test code = Total 7.4 6.4-8.4 Protein) [place] [employer]2018-03-09 20:12:00 Test Item Value Reference Range Interpretation Comments B/C Ratio (test code = B/C Ratio) 9 1 6-25 [place] [employer]2018-03-09 20:12:00 Test Item Value Reference Range Interpretation Comments A/G Ratio (test code = A/G Ratio) 0.8 1 0.7-1.6 [employer]2018-03-09 20:12:00 Test Item Value Reference Range Interpretation Comments Globulin (test code = Globulin) 4.0 2.7-4.2 [place] [employer]2018-03-09 16:39:00 Test Item Value Reference Range Interpretation Comments Troponin-I (test code no gt See_Comment [Auto mated message] The = Troponin-I) system which g enerated this result transmit emerson reference range : <=0.40. The reference r yared was not used to interpr et this result as erinn l/abnormal. [employer] [facility]2018-03-09 16:39:00 Test Item Value Reference Range Interpretation Comments Total CK (test code = Total CK) 350 12-191 [facility] [id number] 16:39:00 Test Item Value Reference Range Interpretation Comments CK MB (test code = CK MB) 4.8 0.5-3.6 [facility]CARDIAC [id number] 16:39:00 Test Item Value Reference Range Interpretation Comments CK MB Index (test 1.4 1 See_Comment [Automate d message] The code = CK MB Index) system w [facility] generated this result transmit emerson reference range : <=2.5. The reference range was not used to interpr et this result as erinn l/abnormal. [facility]UR[facility] [id number] 14:38:00 Test Item Value Reference Range Interpretation Comments U Potassium (test code = U Potassium) 20.0 [facility] [id number] 14:38:00 Test Item Value Reference Range Interpretation Comments U Sodium (test code = U Sodium) 31 [facility] [id number] 14:38:00 Test Item Value Reference Range Interpretation Comments U Chloride (test code = U Chloride) 22 [facility] [id number] 14:38:00 Test Item Value Reference Range Interpretation Comments U Protein (test code = U Protein) 246.9 [facility] [id number] 14:38:00 Test Item Value Reference Range Interpretation Comments U Prot/Creat (test code = U 4.35 1 Prot/Creat) [facility] [id number] 14:38:00 Test Item Value Reference Range Interpretation Comments U Creatinine (test code = U Creatinine) 56.70 [facility] [id number] 14:38:00 Test Item Value Reference Range Interpretation Comments U Osmolality (test code = U Osmolality) 223 300-800 [facility] [id number] 14:38:00 Test Item Value Reference Range Interpretation Comments U Eos (test code = U None Seen (12/15/17 8:38 Eos) AM) [facility] AND [id number] 14:33:00 Test Item Value Reference Range Interpretation Comments Micro? (test code = Performed *NA*(12/15/17 Micro?) 8:33 AM) [facility] [id number] 14:33:00 Test Item Value Reference Range Interpretation Comments UA Urobilinogen (test code = UA <=1.0 mg/dL 0.1-1.0 Urobilinogen) [facility] AND [id number] 14:33:00 Test Item Value Reference Range Interpretation Comments UA Glucose (test code = UA Glucose) 50 [facility] AND [id number] 14:33:00 Test Item Value Reference Range Interpretation Comments UA Color (test code = UA Color) STRAW [facility] AND [id number] 14:33:00 Test Item Value Reference Range Interpretation Comments UA Nitrite (test code Negative (12/15/17 8:33 = UA Nitrite) AM) [facility] AND [id number] 14:33:00 Test Item Value Reference Range Interpretation Comments UA Blood (test code = Small *ABN*(12/15/17 UA Blood) 8:33 AM) [facility] AND [id number] 14:33:00 Test Item Value Reference Range Interpretation Comments UA Leuk Est (test Negative (12/15/17 8:33 code = UA Leuk Est) AM) [facility] AND [id number] 14:33:00 Test Item Value Reference Range Interpretation Comments UA WBC (test code = 3 See_Comment [Automa emerson message] The UA WBC) system which ge nerated this result transmit emerson reference range : <=5. The reference range was not used to interpr et this result as erinn l/abnormal. [facility] AND [id number] 14:33:00 Test Item Value Reference Range Interpretation Comments UA Sq Epi (test code = UA Sq Occasional /LPF Epi) [facility] AND [id number] 14:33:00 Test Item Value Reference Range Interpretation Comments UA Mucus (test code = UA Mucus) Few /LPF [facility] AND [id number] 14:33:00 Test Item Value Reference Range Interpretation Comments UA RBC (test code = 1 See_Comment [Automa emerson message] The UA RBC) system which ge nerated this result transmit emerson reference range : <=2. The reference range was not used to interpr et this result as erinn l/abnormal. [facility] AND [id number] 14:33:00 Test Item Value Reference Range Interpretation Comments UA Turbidity (test code Slight *ABN*(12/15/17 = UA Turbidity) 8:33 AM) [facility] AND [id number] 14:33:00 Test Item Value Reference Range Interpretation Comments UA Spec Grav (test code = UA Spec 1.008 1 Grav) [facility] AND [id number] 14:33:00 Test Item Value Reference Range Interpretation Comments UA Ketones (test code = UA Negative mg/dL Ketones) [facility] AND [id number] 14:33:00 Test Item Value Reference Range Interpretation Comments UA pH (test code = UA pH) 5.0 1 5.0-8.0 [facility] AND [id number] 14:33:00 Test Item Value Reference Range Interpretation Comments UA Bili (test code = Negative *NA*(12/15/17 UA Bili) 8:33 AM) [facility] AND [id number] 14:33:00 Test Item Value Reference Range Interpretation Comments UA Protein (test code = UA Protein) 100 mg/dL [facility] HospitalCARNewton PeripheralsAC [id number] 12:48:00 Test Item Value Reference Range Interpretation Comments CK MB Index (test 1.3 1 See_Comment [Automate d message] The code = CK MB Index) system w [facility] generated this result transmit emerson reference range : <=2.5. The reference range was not used to interpr et this result as erinn l/abnormal. [facility]El TeatroCARNewton PeripheralsAC [id number] 12:48:00 Test Item Value Reference Range Interpretation Comments proBNP (test code = 4088 See_Comment [Automa emerson message] The proBNP) system which ge nerated this result tra nsmitted reference range : <=125. The reference r yared was not used to int erpret this result as erinn l/abnormal. [facility] [id number] 12:48:00 Test Item Value Reference Range Interpretation Comments Total CK (test code = Total CK) 357 12-191 [facility] [id number] 12:48:00 Test Item Value Reference Range Interpretation Comments CK MB (test code = CK MB) 4.8 0.5-3.6 [facility] [id number] 12:48:00 Test Item Value Reference Range Interpretation Comments Troponin-I (test code no gt See_Comment [Auto mated message] The = Troponin-I) system which g enerated this result transmit emerson reference range : <=0.40. The reference r yared was not used to interpr et this result as erinn l/abnormal. [facility] [id number] 12:48:00 Test Item Value Reference Range Interpretation Comments A/G Ratio (test code = A/G Ratio) 0.8 1 0.7-1.6 [facility] [id number] 12:48:00 Test Item Value Reference Range Interpretation Comments Total Protein (test code = Total 7.0 6.4-8.4 Protein) [facility]2018-03-09 12:48:00 Test Item Value Reference Range Interpretation Comments Globulin (test code = Globulin) 3.9 2.7-4.2 [facility]2018-03-09 12:48:00 Test Item Value Reference Range Interpretation Comments Albumin Lvl (test code = Albumin Lvl) 3.1 3.5-5.0 [facility]2018-03-09 12:48:00 Test Item Value Reference Range Interpretation Comments Bili Total (test code = Bili Total) 0.4 0.2-1.3 [facility]2018-03-09 12:48:00 Test Item Value Reference Range Interpretation Comments Alk Phos (test code = Alk Phos) 108 39-136 [facility]2018-03-09 12:48:00 Test Item Value Reference Range Interpretation Comments ALT (test code = ALT) 15 See_Comment [Auto mated message] The system which ge nerated this result transmit emerson reference range : <=65. The reference range was not used to interpr et this result as erinn l/abnormal. [facility] HospitalHealthy [employer], [employer] [id number] 12:48:00 Test Item Value Reference Range Interpretation Comments AST (test code = AST) 13 See_Comment [Auto mated message] The system which ge nerated this result transmit emerson reference range : <=37. The reference range was not used to interpr et this result as erinn l/abnormal. [facility]2018-03-09 12:48:00 Test Item Value Reference Range Interpretation Comments B/C Ratio (test code = B/C Ratio) 9 1 6-25 [facility] [id number] 12:48:00 Test Item Value Reference Range Interpretation Comments D-Dimer (test code = D-Dimer) 1.17 [facility]
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
[2022-01-15 23:32] VITALS: BP 127/77; TEMP 98.6; O2SAT 99
== END 2022-01-15 21:33 | disposition home or self-care (01) ==
LOC: ER 20:36
DX: M54.50 Low back pain, unspecified (principal); M62.830 Muscle spasm of back; V43.62XA Car passenger injured in collision with other type car in traffic accident, initial encounter; Y93.89 Activity, other specified; Y92.414 Local residential or business street as the place of occurrence of the external cause; E11.9 Type 2 diabetes mellitus without complications; I10 Essential (primary) hypertension; N18.6 End stage renal disease; I50.9 Heart failure, unspecified
CPT/HCPCS: 99282

== ENCOUNTER 2022-04-08 04:02 | Observation (INO) | payer OTHER ==
--- NOTE | 2022-04-08 04:16 | ER ---
Nurse's Notes [facility] Name: Alex Cagle Age: 61 yrs Sex: Male : 1960 Arrival Date: 04/08/2022 Time: 04:06 Bed 25 Private MD: Diagnosis: Volume overload due to missed dialysis; Shunt malfunction. Presentation: 04/08 04:09 Chief complaint: Patient states: "I went to dialysis on Monday and they pulled off 1.5 vc1 L and were not able to finish, I went back Monday and they blew out the fistula. Tonight I woke up feeling really short of breath and my eyes were swollen." EMS states: "Pt called saying he was SOB when we arrived he was 89\\T\\ on RA, we placed him on 2L and he increased to 95%.". Coronavirus screen: Vaccine status: Patient reports receiving the 2nd dose of the covid vaccine. At this time, the client does not indicate any symptoms associated with coronavirus-19. Ebola Screen: No symptoms or risks identified at this time. Initial Sepsis Screen: Does the patient meet any 2 criteria? No. Patient's initial sepsis screen is negative. Does the patient have a suspected source of infection? No. Patient's initial sepsis screen is negative. Risk Assessment: Do you want to hurt yourself or someone else? Patient reports no desire to harm self or others. Onset of symptoms was April 08, 2022. 04:09 Method Of Arrival: EMS: [facility] vc1 04:09 Acuity: DEJAN 3 vc1 04:15 Care prior to arrival:. Care prior to arrival: IV initiated. 20 GA, in the right vc1 antecubital area, Oxygen administered. via nasal cannula. Triage Assessment: 04:12 General: Appears in no apparent distress. uncomfortable, obese, Behavior is calm, vc1 cooperative, appropriate for age. Pain: Denies pain. EENT: Eyes Swollen bilaterally. Reports "I feel like my eyes are swollen". Neuro: Level of Consciousness is awake, alert, obeys commands, Oriented to person, place, time, situation, Appropriate for age Speech is normal, Facial symmetry appears normal. Cardiovascular: Denies chest pain. Respiratory: Reports shortness of breath at rest Claims SOB improved after being placed on Oxygen by EMS Airway is patent Respiratory effort is even, unlabored, Respiratory pattern is regular. GI: No deficits noted. : No deficits noted. Derm: Skin is intact, is healthy with good turgor, Skin temperature is warm. Musculoskeletal: No deficits noted. Historical: - Allergies: 04:12 NKA; vc1 - Home Meds: 04:12 acetaminophen-codeine 300-30 mg Oral tab every 6 hours [Active]; amlodipine-benazepril vc1 10-20 mg Oral cap three times a day [Active]; carvedilol 6.25 mg Oral tab 2 times per day [Active]; furosemide 80 mg Oral tab 1 tab 3 times per day [Active]; hydralazine 50 mg Oral tab three times a day [Active]; hydroxyzine HCl 25 mg Oral tab 3 times per day [Active]; Fauzia-Conor 0.8 mg Oral tab daily [Active]; tamsulosin 0.4 mg Oral cp24 1 cap once daily [Active]; - PMHx: 04:12 CHF; Diabetes - NIDDM; ESRD; Hypertension; insomnia; vc1 - PSHx: 04:12 bilateral knee repairs; right sholder; vc1 - Immunization history:: Adult Immunizations up to date, Client reports receiving the 2nd dose of the Covid vaccine, Flu vaccine is up to date. - Social history:: Smoking status: Patient denies any tobacco usage or history of. Screenin:16 Abuse screen: Denies threats or abuse. Nutritional screening: No deficits noted. vc1 Tuberculosis screening: No symptoms or risk factors identified. Fall Risk None identified. Assessment: 04:27 General: Appears in no apparent distress. uncomfortable, Behavior is calm, cooperative. lg3 Pain: Denies pain. Neuro: No deficits noted. Level of Consciousness is awake, alert, obeys commands, Oriented to person, place, time, situation. Cardiovascular: No deficits noted. Capillary refill < 3 seconds Clubbing of nail beds is absent Patient's skin is warm and dry. Respiratory: Reports shortness of breath at rest Airway is patent Trachea midline Respiratory effort is even, unlabored, Respiratory pattern is regular, symmetrical. GI: No deficits noted. Abdomen is round non-distended. : Reports anuria. EENT: Eyes bilateral periorbital edema noted . Derm: Skin is intact, is healthy with good turgor, Skin is dry, Skin temperature is warm dialysis fistula noted to left upper arm. Musculoskeletal: No deficits noted. No signs and/or symptoms reported regarding the musculoskeletal system. Circulation, motion, and sensation intact. Range of motion: intact in all extremities. 05:54 Reassessment: Patient appears in no apparent distress at this time. No changes from lg3 previously documented assessment. Patient and/or family updated on plan of care and expected duration. Pain level reassessed. Patient is alert, oriented x 3, equal unlabored respirations, skin warm/dry/pink. 05:54 General: notified KRISTINA Villavicencio of increasing bilateral periorbital edema. . lg3 Vital Signs: 04:09 BP 165 / 78; Pulse 94; Resp 17; Temp 98.5; Pulse Ox 94% on 2 lpm NC; Weight 90.72 kg; vc1 Height 5 ft. 7 in. (170.18 cm); Pain 0/10; 05:53 BP 158 / 87; Pulse 91; Resp 15; Pulse Ox 97% on 2 lpm NC; lg3 04:09 Body Mass Index 31.32 (90.72 kg, 170.18 cm) vc1 ED Course: 04:06 Patient arrived in ED. as6 04:07 Lise Yuan MD is Attending Physician. sp3 04:12 Triage completed. vc1 04:12 Arm band placed on right wrist. vc1 04:15 Jasbir Hinds is Hospitalizing Provider. sp3 04:16 Patient has correct armband on for positive identification. Bed in low position. Call vc1 light in reach. Client placed on continuous cardiac and pulse oximetry monitoring. NIBP monitoring applied. 04:21 Edith Yañez, KATIANA is Primary Nurse. lg3 04:27 Maintain EMS IV. Dressing intact. Good blood return noted. Site clean \\T\\ dry. Gauge \\T\\ lg 3 site: 20G right AC. 04:30 Basic Metabolic Panel Sent. lg3 04:30 CBC with Diff Sent. lg3 04:30 LFT's Sent. lg3 04:30 NT PRO-BNP Sent. lg3 04:30 PT-INR Sent. lg3 04:30 Troponin HS Sent. lg3 04:33 XRAY Chest (1 view) In Process Unspecified. EDMS 05:56 No provider procedures requiring assistance completed. Patient admitted, IV remains in lg3 place. intact, No redness/swelling at site. 05:57 Report given to Radha Tavares RN. lg3 Administered Medications: No medications were administered Medication: 05:56 VIS not applicable for this client. lg3 Outcome: 04:15 Decision to Hospitalize by Provider. sp3 05:56 Admitted to ER Hold. Please see [facility] for further documentation. lg3 05:56 Condition: stable 05:56 Instructed on the need for admit, Demonstrated understanding of instructions. 14:43 Patient left the ED. ap3 Signatures: Dispatcher [employer] EDMarcella Agosto RN RN ap3 Edith Yañez RN RN lg3 Lise Yuan MD MD sp3 Jovanni Alford RN RN as6 Nury Mccartney RN RN vc1 Corrections: (The following items were deleted from the chart) 04:30 04:15 Care prior to arrival: IV initiated. 18 GA, in the right antecubital area, Oxygen vc1 administered. via nasal cannula, vc1
--- NOTE | 2022-04-08 04:16 | EDPHYS ---
Physician Documentation [facility] Name: Alex Cagle Age: 61 yrs Sex: Male : 1960 Arrival Date: 04/08/2022 Time: 04:06 Bed 25 Private MD: ED Physician Lise Yuan HPI: 04/08 04:09 This 61 yrs old Male presents to ER via Unassigned with complaints of SOB missed HD. sp3 04:09 61-year-old male with history of hypertension, end-stage renal disease Monday sp3 Monday dialysis who presents to the ED for volume overload and shortness of breath secondary to missing dialysis secondary to his fistula malfunctioning. He last had a half session of dialysis 3 days ago and did not receive dialysis on his last session. He denies chest pain, fever, headache, abdominal pain, nausea, vomiting, diarrhea, back pain, syncope, rash, any other aspect of review of systems at this time. Pulse ox on room air by EMS was 88% which came up to 92% or more on 2 L.. Historical: - Allergies: 04:12 NKA; vc1 - Home Meds: 04:12 acetaminophen-codeine 300-30 mg Oral tab every 6 hours [Active]; amlodipine-benazepril vc1 10-20 mg Oral cap three times a day [Active]; carvedilol 6.25 mg Oral tab 2 times per day [Active]; furosemide 80 mg Oral tab 1 tab 3 times per day [Active]; hydralazine 50 mg Oral tab three times a day [Active]; hydroxyzine HCl 25 mg Oral tab 3 times per day [Active]; Fauzia-Conor 0.8 mg Oral tab daily [Active]; tamsulosin 0.4 mg Oral cp24 1 cap once daily [Active]; - PMHx: 04:12 CHF; Diabetes - NIDDM; ESRD; Hypertension; insomnia; vc1 - PSHx: 04:12 bilateral knee repairs; right sholder; vc1 - Immunization history:: Adult Immunizations up to date, Client reports receiving the 2nd dose of the Covid vaccine, Flu vaccine is up to date. - Social history:: Smoking status: Patient denies any tobacco usage or history of. ROS: 04:11 Constitutional: Negative for fever, chills, and weight loss, Eyes: Negative for injury, sp3 pain, redness, and discharge, Cardiovascular: Negative for chest pain, palpitations, and edema, Abdomen/GI: Negative for abdominal pain, nausea, vomiting, diarrhea, and constipation, Back: Negative for injury and pain, MS/Extremity: Negative for injury and deformity, Skin: Negative for injury, rash, and discoloration, Neuro: Negative for headache, weakness, numbness, tingling, and seizure, Psych: Negative for depression, anxiety, suicide ideation, homicidal ideation, and hallucinations, Allergy/Immunology: Negative for hives, rash, and allergies, Endocrine: Negative for neck swelling, polydipsia, polyuria, polyphagia, and marked weight changes, Hematologic/Lymphatic: Negative for swollen nodes, abnormal bleeding, and unusual bruising. 04:11 All other systems are negative. Exam: 04:11 Constitutional: This is a well developed, well nourished patient who is awake, alert, sp3 and in no acute distress. Head/Face: Normocephalic, atraumatic. Eyes: Pupils equal round and reactive to light, extra-ocular motions intact. Lids and lashes normal. Conjunctiva and sclera are non-icteric and not injected. Cornea within normal limits. Periorbital areas with no swelling, redness, or edema. ENT: Nares patent. No nasal discharge, no septal abnormalities noted. External auditory canals are clear. Oropharynx with no redness, swelling, or masses, exudates, or evidence of obstruction, uvula midline. Mucous membranes moist. Neck: Trachea midline, no thyromegaly or masses palpated, and no cervical lymphadenopathy. Supple, full range of motion without nuchal rigidity, or vertebral point tenderness. No Meningismus. Chest/axilla: Normal chest wall appearance and motion. Nontender with no deformity. No lesions are appreciated. Cardiovascular: Regular rate and rhythm with a normal S1 and S2. No gallops, murmurs, or rubs. Normal PMI, no JVD. No pulse deficits. Abdomen/GI: Soft, non-tender, with normal bowel sounds. No distension or tympany. No guarding or rebound. No evidence of tenderness throughout. Back: No spinal tenderness. No costovertebral tenderness. Full range of motion. Skin: Warm, dry with normal turgor. Normal color with no rashes, no lesions, and no evidence of cellulitis. MS/ Extremity: Pulses equal, no cyanosis. Neurovascular intact. Full, normal range of motion. Neuro: Awake and alert, GCS 15, oriented to person, place, time, and situation. Cranial nerves II-XII grossly intact. Motor strength 5/5 in all extremities. Sensory grossly intact. Cerebellar exam normal. Normal gait. 04:11 Respiratory: Mild Rales bilaterally. Vital Signs: 04:09 BP 165 / 78; Pulse 94; Resp 17; Temp 98.5; Pulse Ox 94% on 2 lpm NC; Weight 90.72 kg; vc1 Height 5 ft. 7 in. (170.18 cm); Pain 0/10; 05:53 BP 158 / 87; Pulse 91; Resp 15; Pulse Ox 97% on 2 lpm NC; lg3 04:09 Body Mass Index 31.32 (90.72 kg, 170.18 cm) vc1 MDM: 04:11 Data reviewed: vital signs, nurses notes. ED course: Will admit to the hospital for sp3 very dialysis and access with scheduling of permanent this by vascular surgery.. 04:15 Patient medically screened. 3 04/08 04:15 Order name: Basic Metabolic Panel; Complete Time: 05:46 sp3 04/08 04:15 Order name: CBC with Diff; Complete Time: 04:50 sp3 04/08 04:15 Order name: LFT's; Complete Time: 05:46 sp3 04/08 04:15 Order name: NT PRO-BNP; Complete Time: 05:46 sp3 04/08 04:15 Order name: PT-INR; Complete Time: 04:50 sp3 04/08 04:15 Order name: Troponin HS; Complete Time: 05:46 sp3 04/08 04:15 Order name: XRAY Chest (1 view) sp3 04/08 04:15 Order name: EKG; Complete Time: 04:16 sp3 04/08 04:15 Order name: Cardiac monitoring; Complete Time: 04:28 sp3 04/08 04:15 Order name: EKG - Nurse/Tech; Complete Time: 04:30 sp3 04/08 04:15 Order name: IV Saline Lock; Complete Time: 04:17 sp3 04/08 04:42 Order name: COVID-19 SARS RT PCR (Document "Date of Onset" if Symptomatic) lg3 04/08 07:55 Order name: Glucose, Ancillary Testing EDMS 04/08 12:29 Order name: US EDMS 04/08 04:15 Order name: Labs collected and sent; Complete Time: 04:28 sp3 04/08 04:15 Order name: O2 Per Protocol; Complete Time: 04:27 sp3 04/08 04:15 Order name: O2 Sat Monitoring; Complete Time: 04:27 sp3 Administered Medications: No medications were administered Disposition Summary: 04/08/22 04:15 Hospitalization Ordered Hospitalization Status: Inpatient Admission sp3 Provider: Jasbir Hinds sp3 Condition: Stable sp3 Problem: an acute exacerbation sp3 Symptoms: are unchanged sp3 Bed/Room Type: Standard sp3 Location: Telemetry/MedSurg (Inpatient)(04/08/22 13:21) eb Room Assignment: 228(04/08/22 13:21) eb Diagnosis - Volume overload due to missed dialysis; Shunt malfunction. sp3 Forms: - Medication Reconciliation Form sp3 - SBAR form sp3 Signatures: Dispatcher [employer] [facility] Clara Tim RN RN Feli Bruno Setul, MD MD sp3 Nury Mccartney RN RN vc1 Adrienne Sky PA PA sb3 Corrections: (The following items were deleted from the chart) 05:55 04:15 Telemetry/MedSurg (Inpatient) sp3 mw 05:55 04:15 sp3 mw 13:21 05:55 [facility] ER HOLD mw eb 13:21 05:55 ERHOLD- mw eb
[2022-04-08 04:39] LABS: Absolute Lymphocytes (CBC) 0.7 K/uL (0.7-4.9); Hematocrit 24.4 % (39.6-49.0); Lymphocytes % 9.1 % (15.3-44.8); MCV 87.9 fL (80-100); RBC Red Blood Cell Count 2.78 M/uL (4.33-5.43)
[2022-04-08 04:47] LABS: Protime INR 1.01
[2022-04-08 05:06] LABS: Albumin 3.5 g/dL (3.4-5.0); Bilirubin Direct 0.1 mg/dL (0-0.2); Bilirubin Total 0.4 mg/dL (0.2-1.0); Protein, Total 6.7 g/dL (6.4-8.2); Troponin High Sensitivity 26.8 pg/mL (<58.9)
[2022-04-08 05:09] LABS: Potassium 5.7 mmol/L (3.5-5.1)
--- NOTE | 2022-04-08 05:37 | P.HP ---
Certification for Inpatient Patient admitted to: Inpatient With expected LOS: <2 Midnights Patient will require the following post-hospital care: None Practitioner: I am a practitioner with admitting privileges, knowledge of patient current condition, hospital course, and medical plan of care. Services: Services provided to patient in accordance with Admission requirements found in Title 42 Section 412.3 of the Code of Federal Regulations Patient History Date of Service: 04/08/22 Primary Care Provider: Lorrie Reason for admission: ESRD, Volume Overload History of Present Illness: Patient is a 61 y/o M with ESRD (on HD MWF, does not make urine), type 2 diabetes, HTN who presented to the ED complaining of SHOB and fluid overload. He reports that when he went to HD on Monday, the HD catheter blew and he was unable to get HD. Labs today significant for Cr 12, potassium 5.7, hgb 8.4, BNP 15,000. He is requiring supplemental O2, has periorbital swelling, and generalized edema. 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 Patient is admitted for further evaluation and treatment. Allergies No Known Allergies Allergy (Verified 01/01/21 21:09) Home Medications: Amlodipine Besylate/Benazepril [Amlodipine-Benazepril 10-20 mg] 1 tab PO TID 11/27/20 Calcium Acetate [Phoslo] 2 cap PO BID 11/27/20 Calcium Acetate [Phoslo] 6 cap PO TIDWM 11/27/20 Codeine/APAP [Tylenol #3*] 1 tab PO QID PRN 11/27/20 Ferric Citrate [Auryxia] 1 tab PO BID 11/27/20 Folic Acid/Vit B Complex and C [Fauzia-Conor Tablet] 1 tab PO DAILY 11/27/20 Furosemide [Lasix] 80 mg PO BID 11/27/20 Tamsulosin [Flomax*] 1 cap PO BEDTIME 11/27/20 diazePAM [Diazepam] 10 mg PO BID PRN 11/27/20 Hydralazine HCl 100 mg PO Q8H 30 Days #90 tablet 11/30/20 carvediloL [Coreg*] 25 mg PO BID 30 Days #60 tab 11/30/20 Ascorbic Acid [Vitamin C*] 500 mg PO TID #90 tablet 05/21/21 Thiamine HCl [Vitamin B-1*] 100 mg PO DAILY #30 tablet 05/21/21 Zinc Sulfate [Zinc Sulfate*] 220 mg PO DAILY #30 cap 05/21/21 predniSONE [Prednisone*] 20 mg PO DAILY #7 tab 05/21/21 - Past Medical/Surgical History Diabetic: Yes -: End-stage renal disease on hemodialysis -: Hypertension -: HTN -: DM -: shoulder surgery Psychosocial/ Personal History: Patient with 5 children. - Family History Father -: Heart disease - Social History Smoking Status: Never smoker Alcohol use: No CD- Drugs: No Caffeine use: No Place of Residence: Home Review of Systems Eyes: As per HPI Respiratory: Shortness of Breath Physical Examination - Physical Exam General: Alert, In no apparent distress HEENT: Atraumatic, PERRLA, Other (periorbital swelling bilaterally), EOMI, Sclerae nonicteric Neck: Supple, 2+ carotid pulse no bruit, No LAD, Without JVD or thyroid abnormality Respiratory: Crackles/rales Cardiovascular: Regular rate/rhythm, Normal S1 S2 Gastrointestinal: Normal bowel sounds, No tenderness Musculoskeletal: No tenderness Integumentary: No rashes Neurological: Normal speech, Normal strength at 5/5 x4 extr, Normal tone, Normal affect - Studies Laboratory Data (last 24 hrs) 04/08/22 04:25: PT 11.1, INR 1.01 04/08/22 04:25: WBC 7.8, Hgb 8.4 L, Hct 24.4 L, Plt Count 204 04/08/22 04:25: Sodium 130 L, Potassium 5.7 H*, BUN 67 H, Creatinine 12.60 H*, Glucose 77, Total Bilirubin 0.4, AST 17, ALT 22, Alkaline Phosphatase 116 Assessment and Plan - Problems (Diagnosis) (1) Hyperkalemia Current Visit: Yes Status: Acute (2) Anemia in chronic kidney disease (CKD) Current Visit: Yes Status: Chronic Qualifiers: Chronic kidney disease stage: on chronic dialysis Qualified Code(s): N18.6 - End stage renal disease; D63.1 - Anemia in chronic kidney disease; Z99.2 - Dependence on renal dialysis (3) Diabetes mellitus Current Visit: Yes Status: Chronic Qualifiers: Diabetes mellitus type: type 2 Diabetes mellitus residential insulin use: without residential use Diabetes mellitus complication status: with kidney complications Diabetes mellitus complication detail: with chronic kidney disease Chronic kidney disease stage: on chronic dialysis Qualified Code(s): E11.22 - Type 2 diabetes mellitus with diabetic chronic kidney disease; N18.6 - End stage renal disease; Z99.2 - Dependence on renal dialysis (4) ESRD (end stage renal disease) on dialysis Current Visit: Yes Status: Chronic (5) HTN (hypertension) Current Visit: Yes Status: Chronic Qualifiers: Hypertension type: primary hypertension Qualified Code(s): I10 - Essential (primary) hypertension (6) Shortness of breath Current Visit: Yes Status: Acute (7) Fluid overload Current Visit: Yes Status: Acute Qualifiers: Hypervolemia type: unspecified Qualified Code(s): E87.70 - Fluid overload, unspecified - Plan -General surgery consulted for new dialysis access -Hemodialysis ordered -Nephrology consulted -Renal diet. 1500cc/day fluid restriction -Monitor BP and electrolytes closely. -Potassium 5.7. Kayexalate ordered. -Reconcile and continue home medications -Heparin for VTE ppx Discharge Plan: Home Plan to discharge in: 48 Hours - Advance Directives Does patient have a Living Will: No Does patient have a Durable POA for Healthcare: Yes - Code Status/Comfort Care Code Status Assessed: Yes (Full) Critical Care: No Time Spent Managing Pts Care (In Minutes): 50
[2022-04-08] MEDS ORDERED: ONDANSETRON 4 MG/2 ML VIAL IV PRN (06:22)
[2022-04-08] MEDS ORDERED: ACETAMINOPHEN 500 MG TAB PO PRN (06:22)
[2022-04-08] MEDS ORDERED: SOD POLYSTYREN SUL 15 GM/60 ML UCUP PO ONE (06:22)
[2022-04-08] MEDS ORDERED: FENTANYL CITR 100 MCG/2 ML IV ONE (06:22)
[2022-04-08 07:29] VITALS: BMI 31.3
[2022-04-08] MEDS: INSULIN -REGULAR HUMAN 50 UNIT/0.5 ML ML SQ SCH ×4 (07:30→20:14)
[2022-04-08] MEDS ORDERED: SOD POLYSTYREN SUL 15 GM/60 ML UCUP ONE (07:54)
[2022-04-08] MEDS ORDERED: FENTANYL CITR 100 MCG/2 ML ONE (07:54)
[2022-04-08] MEDS ORDERED: HEPARIN 5000 UNIT/ML 1 ML VIAL ONE (08:45)
[2022-04-08] MEDS: HEPARIN 5000 UNIT/ML 1 ML VIAL SQ SCH ×2 (09:00→17:21)
[2022-04-08] MEDS ORDERED: ONDANSETRON 4 MG/2 ML VIAL ONE (09:04)
--- NOTE | 2022-04-08 09:49 | EKG ---
Test Date: 2022-04-08 Test Time: 04:33:43 Food Processing Scientist: DAMEON MEASUREMENT RESULTS: Intervals: Rate: 83 NH: 184 QRSD: 98 QT: 382 QTc: 448 [place]: P: 28 NH: 184 QRS: 89 T: 32 INTERPRETIVE STATEMENTS: Normal sinus rhythm Normal ECG Compared to ECG 08/25/2021 23:24:43 No significant changes Electronically Signed On 04-08-22 09:48:31 CDT by Deon Lawton
--- NOTE | 2022-04-08 12:28 | RAD REPORT ---
EXAM DESCRIPTION: US - Upper Ext Artery Uni [place] - 04/08/2022 11:46 am CLINICAL HISTORY: Clogged left A-V fistula COMPARISON: No comparisons FINDINGS: Color Doppler, grayscale, and spectral analysis was performed. Left-sided arm AV fistula is patent. The peak systolic velocity in the subclavian artery is 203 cm/s. The peak systolic velocity in the ax illary artery is 289 cm/second proximal to the fistula. In the mid fistula, the peak systolic velocit y measures 330 cm/second. Beyond the fistula at the outflow, the peak systolic velocity is 93 cm/s. The peak systolic velocity in the radial artery is 56 cm/second. The peak systolic velocity in the ul huey artery is 78 cm/second. Color Doppler and grayscale demonstrate no stenoses. IMPRESSION: 1. No evidence of a thrombosed upper extremity AV fistula. 2. Incidentally noted left IJ thrombus.
--- NOTE | 2022-04-08 14:33 | RAD REPORT ---
EXAM DESCRIPTION: RAD - Chest Single View - 04/08/2022 4:32 am CLINICAL HISTORY: The patient is 61 years old and is Male; DYSPNEA TECHNIQUE: Single view of the chest. COMPARISON: No relevant prior studies available. FINDINGS: Lungs: Bibasilar subsegmental atelectasis. No pulmonary vascular congestion. Pleural space: No pleural effusion or pneumothorax. Heart: The cardiac silhouette is enlarged versus artifact of AP technique. Mediastinum: Unremarkable. Bones/joints: No acute fracture visualized. Upper abdomen: No free air in the visualized upper abdomen. IMPRESSION: Bibasilar subsegmental atelectasis. Electronically signed by: Terri Dacosta MD 04/08/2022 5:07 AM CDT Due to temporary technical issues with the PACS/Fluency reporting system, reports are being signed by the in house radiologists without review as a courtesy to insure prompt reporting. The interpreting radiologist is fully responsible for the content of the report.
--- NOTE | 2022-04-08 15:34 | P.CNS ---
Date of Consult: 04/08/22 Reason for Consult: ESRD Requesting Physician: fatoumata stapleton Primary Care Provider: Lorrie Chief Complaint: ESRD, Volume Overload History of Present Illness: 61M w/ PMHx of ESRD presumed to be 2/2 Htn/DM on HD qMWF, last HD received 2d ago, Htn, DM2, anemia, & renal osteodystrophy, who p/w SOB & BLE edma. Has hyperkalemia with serum K 5.7. He received HD today. Allergies No Known Allergies Allergy (Verified 01/01/21 21:09) Home Medications: Amlodipine Besylate/Benazepril [Amlodipine-Benazepril 10-20 mg] 1 tab PO TID 11/27/20 Furosemide [Lasix] 80 mg PO BID 11/27/20 Apixaban [Eliquis] 5 mg PO BID #60 tablet 04/08/22 Codeine/APAP [Tylenol #3*] 60 mg PO TID 04/08/22 Fish Oil/Borage/Flax/Om3,6,9 1 [[place] 3-6-9 1,200 mg Softgel] 1 tab PO DAILY 04/08/22 Folic Acid/Vit B Complex and C [Fauzia-Conor Tablet] 1 tab PO DAILY 04/08/22 Heparin [Heparin 1,000 units/mL *] 4,000 unit IV EVERY HD vial 04/08/22 Lisinopril [Zestril] 20 mg PO DAILY 04/08/22 Sucroferric Oxyhydroxide [Velphoro] 500 mg PO AC 04/08/22 - Past Medical/Surgical History Diabetic: Yes -: End-stage renal disease on hemodialysis -: Hypertension -: HTN -: DM -: Peritoneal dialysis port -: shoulder surgery Psychosocial/ Personal History: Patient with 5 children. - Family History Father Medical History: Heart disease - Social History Smoking Status: Unknown if ever smoked Alcohol use: No CD- Drugs: No Caffeine use: No Place of Residence: Home Review of Systems General: Weakness Eyes: Unremarkable ENT: Unremarkable Respiratory: Shortness of Breath, SOB with Excertion Cardiovascular: Unremarkable Gastrointestinal: Unremarkable Genitourinary: Unremarkable Musculoskeletal: Pedal edema Integumentary: Unremarkable Neurological: Unremarkable Lymphatics: Unremarkable Physical Examination Temp Pulse Resp BP Pulse Ox 98.6 F 79 18 158/87 H 94 07/01/22 08:00 04/08/22 08:00 04/08/22 08:00 04/08/22 05:53 04/08/22 08:20 General: Other (Appears as his stated age) HEENT: Atraumatic, Normocephalic Neck: Supple, JVD not distended Respiratory: Other (Symmetric chest expansion) Cardiovascular: No rubs, No murmurs Gastrointestinal: No rebound, No guarding Musculoskeletal: No clubbing Integumentary: No warmth Neurological: Normal tone Urinary: Other (No bladder distention) External genitalia: Deferred Rectal: Deferred Laboratory Data (last 24 hrs) 04/08/22 04:25: PT 11.1, INR 1.01 04/08/22 04:25: WBC 7.8, Hgb 8.4 L, Hct 24.4 L, Plt Count 204 04/08/22 04:25: Sodium 130 L, Potassium 5.7 H*, BUN 67 H, Creatinine 12.60 H*, Glucose 77, Total Bilirubin 0.4, AST 17, ALT 22, Alkaline Phosphatase 116 Conclusions/Impression: # ESRD on outpt HD qMWF Received HD today Renal + DM diet # Hyperkalemia Correction via HD # Acute respi failure, volume overload HD as above # Htn Resume home BP meds # Left IJ vein thrombosis Eliquis po bid for 3 mos & re-image # Anemia Monitor H/H # Renal osteodystrophy Monitor Ca & Phos # DM2 Mngt per primary team
--- NOTE | 2022-04-08 16:20 | P.PN ---
Date of Service: 04/08/22 Patient seen and examined. Doppler studies of the left AV fistula demonstrated patent AV fistula with no clot. There was incidental finding of left IJ vein thrombosis. Patient seen by nephrology. He completed 3 hours of dialysis successfully. We will keep him as inpatient, start warfarin therapy with Coumadin bridge. Reconcile and continue other home medications. Further hemodialysis per nephrology.
[2022-04-08 16:59] LABS: Potassium 4.2 mmol/L (3.5-5.1)
--- NOTE | 2022-04-08 17:03 | P.DS ---
Admission Date: 04/08/22 Discharge Date: 04/08/22 Primary Care Provider: Lorrie Disposition: ROUTINE DISCHARGE Discharge Condition: FAIR Reason for Admission: ESRD, Volume Overload - Problems (1) Left upper extremity deep vein thrombosis Current Visit: Yes Status: Acute (2) Fluid overload Current Visit: Yes Status: Acute Qualifiers: Hypervolemia type: unspecified Qualified Code(s): E87.70 - Fluid overload, unspecified (3) Hyperkalemia Current Visit: Yes Status: Acute (4) Anemia in chronic kidney disease (CKD) Current Visit: Yes Status: Chronic Qualifiers: Chronic kidney disease stage: on chronic dialysis (5) Diabetes mellitus Current Visit: Yes Status: Chronic Qualifiers: Diabetes mellitus type: type 2 Diabetes mellitus oysterman insulin use: without skilled nursing use Diabetes mellitus complication status: with kidney complications Diabetes mellitus complication detail: with chronic kidney disease Chronic kidney disease stage: on chronic dialysis Qualified Code(s): E11.22 - Type 2 diabetes mellitus with diabetic chronic kidney disease; N18.6 - End stage renal disease; Z99.2 - Dependence on renal dialysis (6) ESRD (end stage renal disease) on dialysis Current Visit: Yes Status: Chronic Brief History of Present Illness: Patient is a 61 y/o M with ESRD (on HD MWF, does not make urine), type 2 diabetes, HTN who presented to the ED complaining of SHOB and fluid overload. He reports that when he went to HD on Monday, the HD catheter filtrated and he was unable to get HD. Labs today significant for Cr 12, potassium 5.7, hgb 8.4, BNP 15,000. He is requiring supplemental O2, has periorbital swelling, and generalized edema. Patient admitted for further management. Hospital Course: Patient admitted to the medical floor. Vascular ultrasound of the left AV fistula showed patent fistula, not clot or occlusion. Noted incidental finding of left internal jugular vein thrombosis. Patient seen by nephrology in the ED underwent hemodialysis. He had hyperkalemia which should be corrected by hemodialysis. For the treatment of the IJV thrombosis, nephrology-Dr. Wick recommended Eliquis. He recommended 5 mg twice a day x7 days followed by 2.5 mg twice daily. Eliquis dosing for DVT treatment and end-stage renal disease was reviewed in literature and the recommendation was no dose adjustment. Patient is therefore prescribed Eliquis 5 mg twice a day. He is informed to follow-up with nephrology regarding further hemodialysis and Eliquis dosing for his DVT. Patient deemed stable for discharge per nephrology. Vital Signs/Physical Exam: Temp Pulse Resp BP Pulse Ox 98.6 F 79 18 158/87 H 94 04/08/22 08:00 04/08/22 08:00 04/08/22 08:00 04/08/22 05:53 04/08/22 08:20 General: Alert, In no apparent distress, Oriented x3 HEENT: Other (Periorbital edema significantly improved after hemodialysis.) Neck: JVD not distended Respiratory: Clear to auscultation bilaterally, Normal air movement Cardiovascular: Regular rate/rhythm, Normal S1 S2 Gastrointestinal: Normal bowel sounds, Soft and benign, Non-distended Musculoskeletal: No swelling Integumentary: No rashes Neurological: Normal strength at 5/5 x4 extr Laboratory Data at Discharge: WBC 7.8 K/uL (4.3-10.9) 04/08/22 04:25 Hgb 8.4 g/dL (13.6-17.9) L 04/08/22 04:25 Hct 24.4 % (39.6-49.0) L 04/08/22 04:25 Plt Count 204 K/uL (152-406) 04/08/22 04:25 PT 11.1 SECONDS (9.5-12.5) 04/08/22 04:25 INR 1.01 04/08/22 04:25 Sodium 130 mmol/L (136-145) L 04/08/22 04:25 Potassium 5.7 mmol/L (3.5-5.1) H* 04/08/22 04:25 BUN 67 mg/dL (7-18) H 04/08/22 04:25 Creatinine 12.60 mg/dL (0.55-1.3) H* 04/08/22 04:25 Glucose 77 mg/dL (74-106) 04/08/22 04:25 Total Bilirubin 0.4 mg/dL (0.2-1.0) 04/08/22 04:25 AST 17 U/L (15-37) 04/08/22 04:25 ALT 22 U/L (12-78) 04/08/22 04:25 Alkaline Phosphatase 116 U/L (45-117) 04/08/22 04:25 Home Medications: Amlodipine Besylate/Benazepril [Amlodipine-Benazepril 10-20 mg] 1 tab PO TID 11/27/20 Furosemide [Lasix] 80 mg PO BID 11/27/20 Apixaban [Eliquis] 5 mg PO BID #60 tablet 04/08/22 Codeine/APAP [Tylenol #3*] 60 mg PO TID 04/08/22 Fish Oil/Borage/Flax/Om3,6,9 1 [[place] 3-6-9 1,200 mg Softgel] 1 tab PO DAILY 04/08/22 Folic Acid/Vit B Complex and C [Fauzia-Conor Tablet] 1 tab PO DAILY 04/08/22 Heparin [Heparin 1,000 units/mL *] 4,000 unit IV EVERY HD vial 04/08/22 Lisinopril [Zestril] 20 mg PO DAILY 04/08/22 Sucroferric Oxyhydroxide [Velphoro] 500 mg PO AC 04/08/22 New Medications: Apixaban [Eliquis] 5 mg PO BID #60 tablet Diet: AHA Activity: Ad adina Followup: NONE,NONE [Primary Care Provider] -
[2022-04-08] MEDS: APIXABAN 5 MG TABLET PO SCH (20:14)
[2022-04-08] MEDS ORDERED: APIXABAN 2.5 MG TABLET PO SCH (21:00)
[2022-04-09] MEDS ORDERED: ZOLPIDEM TARTRATE 10 MG TABLET PO ONE (01:23)
[2022-04-09 07:04] LABS: Absolute Lymphocytes (CBC) 0.8 K/uL (0.7-4.9); Hematocrit 25.1 % (39.6-49.0); Lymphocytes % 15.3 % (15.3-44.8); MCV 88.1 fL (80-100); RBC Red Blood Cell Count 2.85 M/uL (4.33-5.43)
[2022-04-09] MEDS: INSULIN -REGULAR HUMAN 50 UNIT/0.5 ML ML SQ SCH ×4 (07:30→20:46)
[2022-04-09 07:46] LABS: Magnesium 2.5 mg/dL (1.8-2.4); Phosphorus 5.9 mg/dL (2.5-4.9)
[2022-04-09] MEDS: APIXABAN 5 MG TABLET PO SCH ×2 (07:49→20:45)
[2022-04-09 08:50] VITALS: TEMP 98.6
[2022-04-09] MEDS ORDERED: lisinopriL 20 MG TAB PO SCH (09:00)
[2022-04-09] MEDS ORDERED: EPOETIN ALFA 10,000 UNIT/ML VIAL IV SCH (11:15)
[2022-04-09 14:44] VITALS: O2SAT 93
--- NOTE | 2022-04-09 15:58 | P.PN ---
Subjective Date of Service: 04/09/22 Primary Care Provider: Lorrie Chief Complaint: ESRD, Volume Overload Subjective: Improving (Patient is doing well no new complaint s/p dialysis) Review of Systems 10-point ROS is otherwise unremarkable Physical Examination - Vital Signs Temperature: 98.6 F Blood Pressure: 188/91 Pulse: 81 Respirations: 16 Pulse Ox (%): 95 - Physical Exam General: Alert, Oriented x3, Oriented x2 Respiratory: Clear to auscultation bilaterally Cardiovascular: No edema, Normal S1 S2 Assessment And Plan - Current Problems (Diagnosis) (1) Jugular vein thrombosis, left Current Visit: Yes Status: Acute Plan: Patient has a jugular vein thrombosis we will start and will start patient on Eliquis to make sure it is covered by the pharmacy has had dialysis today he has no complaint labs reviewed he is mildly anemic he was admitted with volume overload has improved blood pressure still elevated resume amlodipine
--- NOTE | 2022-04-09 16:59 | PN ---
Date of Progress Note: 04/09/2022 Subjective: Patient was admitted with AFib with RVR, overvolume, patient received dialysis, tolerate d the dialysis well. Physical Examination: General: When I saw the patient, patient is still complaining of some from shortness of breath. Vital Signs: Blood pressure of 175/93, pulse of 93, afebrile. CHEST: Crackles bilateral. HEART: S1, S2. Regular. Systolic murmur. Abdomen: Soft, nontender. Extremities: Plus edema. Neuro: Alert. No focality. Laboratory Data: WBC 5.2, H and H 8.4/25.1. Sodium 134, potassium 5, bicarb 28, BUN 47, creatinine 9.3, calcium 8.1. Phos 5.9, magnesium 2.5. Chest x-ray, cardiomegaly with congestion. Assessment And Plan: 1.End-stage renal disease with overvolume. I again arranged for extra session of dialysis today wit h sequential to establish better volume for the patient and we will follow up. 2.Hypertension, not controlled. We will follow up blood pressure after dialysis. We will continue diuresis. 3.Hyperkalemia, resolved with dialysis. 4.Congestive heart failure with exacerbation overvolume. We will try to establish better volume con trol with dialysis. 5.Anemia of chronic kidney disease. Resume HASEEB. 6.Hypertension, currently not controlled. We will try to utilize blood pressure for more ultrafiltr ation. I am going to start the patient on nitroglycerin and Lasix and we will start the patient on l isinopril. 7.Secondary hyperparathyroidism, stable. We will continue home medication. RENAE Voice ID: [id number] Report ID: [id number]
[2022-04-09] MEDS ORDERED: FUROSEMIDE 40 MG/4 ML VIAL IV SCH (17:00)
[2022-04-09 18:44] VITALS: BP 162/94
[2022-04-09] MEDS ORDERED: HOME MED 1 EA UNK (Furosemide [Lasix] 80 MG Tablet) PO SCH (21:00)
[2022-04-10] MEDS ORDERED: NITROGLYCERIN 0.2 MG/HR (5 MG) PATCH TD SCH (09:00)
[2022-04-10] MEDS ORDERED: AMLODIPINE 10 MG TAB PO SCH (09:00)
[2022-04-10] MEDS ORDERED: lisinopriL 20 MG TAB PO SCH (09:00)
== END 2022-04-09 20:50 | disposition home or self-care (01) ==
LOC: ER 04:02 → INTOOBSV 05:30 → ERHOLD 05:30 → 2ND 14:40
PROVIDERS: ADMIT Internal Medicine; ATTEND Internal Medicine Sleep Medicine
DX: I13.2 Hypertensive heart and chronic kidney disease with heart failure and with stage 5 chronic kidney disease, or end stage renal disease (principal); E11.22 Type 2 diabetes mellitus with diabetic chronic kidney disease; I50.9 Heart failure, unspecified; N18.6 End stage renal disease; Z99.2 Dependence on renal dialysis; D63.1 Anemia in chronic kidney disease; J96.00 Acute respiratory failure, unspecified whether with hypoxia or hypercapnia; E87.5 Hyperkalemia; N25.0 Renal osteodystrophy; I82.C12 Acute embolism and thrombosis of left internal jugular vein; E21.3 Hyperparathyroidism, unspecified; I48.91 Unspecified atrial fibrillation; R01.1 Cardiac murmur, unspecified; G47.00 Insomnia, unspecified; Z79.899 Other long term (current) drug therapy; Z20.822 Contact with and (suspected) exposure to COVID-19; Z82.49 Family history of ischemic heart disease and other diseases of the circulatory system
CPT/HCPCS: 36415; 71045; 80048; 80076; 82947; 83735; 83880; 84100; 84484; 85025; 85610; 90935; 93005; 93931; 99285; G0257; G0378; J1644; J1940; J2405; J3010; U0003

== ENCOUNTER 2022-04-21 12:31 | Inpatient (IN) | payer OTHER ==
[2022-04-21] MEDS ORDERED: IBUPROFEN 400 MG TAB ONE (13:46)
--- NOTE | 2022-04-21 14:38 | RAD REPORT ---
EXAM DESCRIPTION: RAD - Chest Pa And Lat (2 Views) - 04/21/2022 2:23 pm CLINICAL HISTORY: Fever Chest pain. COMPARISON: Chest Single View dated 04/08/2022; Chest Single View dated 08/25/2021; Chest Single View dated 07/01/2021; Chest Single View dated 05/20/2021 FINDINGS: The lungs are clear. The heart is mildly enlarged in size. No displaced fractures.
[2022-04-21 15:24] LABS: Absolute Lymphocytes (CBC) 0.6 K/uL (0.7-4.9); Hematocrit 25.7 % (39.6-49.0); Lymphocytes % 10.5 % (15.3-44.8); MCV 87.9 fL (80-100); MPV 6.7 fL (7.6-11.3); RBC Red Blood Cell Count 2.92 M/uL (4.33-5.43)
[2022-04-21 15:39] LABS: Albumin 3.6 g/dL (3.4-5.0); Bilirubin Total 0.5 mg/dL (0.2-1.0)
[2022-04-21 15:47] LABS: Potassium 6.5 mmol/L (3.5-5.1)
[2022-04-21] MEDS ORDERED: ALBUTEROL 2.5 MG/3 ML NEB SOL ONE (16:16)
[2022-04-21] MEDS ORDERED: CALCIUM GLUCONATE 1 GM IVPB 1 GM/50 ML BAG IV ONE (16:17)
[2022-04-21] MEDS ORDERED: SOD POLYSTYREN SUL 15 GM/60 ML UCUP ONE (16:17)
[2022-04-21] MEDS ORDERED: INSULIN -REGULAR HUMAN 50 UNIT/0.5 ML ML ONE (16:17)
[2022-04-21] MEDS ORDERED: DEXTROSE 10%-WATER 500 ML IV ONE (16:20)
--- NOTE | 2022-04-21 16:54 | EDPHYS ---
Physician Documentation [facility] Name: Alex Cagle Age: 61 yrs Sex: Male : 1960 Arrival Date: 04/21/2022 Time: 12:35 Bed 28 Private MD: Toya Andrew H ED Physician Nilesh Sorenson HPI: 04/21 13:45 This 61 yrs old Male presents to ER via Wheelchair with complaints of Fever, Sore pm1 Throat, Body aches. 13:45 The patient reports fever, that was measured at 102 degrees Fahrenheit. Onset: The pm1 symptoms/episode began/occurred today. Modifying factors: there are no obvious modifying factors. Associated signs and symptoms: Pertinent positives: cough, shortness of breath, Pertinent negatives: abdominal pain, chest pain, diarrhea, headache, nausea, vomiting. Severity of symptoms: in the emergency department the symptoms are unchanged. The patient has not experienced similar symptoms in the past. The patient has not recently seen a physician. Dialysis patient was presenting to the dialysis center, [facility], for treatment. During vital signs he was found to be febrile and was sent to the ER for evaluation. Patient did not receive his dialysis today. Historical: - Allergies: 12:40 NKA; iw - Home Meds: 12:40 hydralazine 50 mg Oral tab three times a day [Active]; acetaminophen-codeine 300-30 mg iw Oral tab every 6 hours [Active]; amlodipine-benazepril 10-20 mg Oral cap three times a day [Active]; carvedilol 6.25 mg Oral tab 2 times per day [Active]; furosemide 80 mg Oral tab 1 tab 3 times per day [Active]; hydroxyzine HCl 25 mg Oral tab 3 times per day [Active]; Fauzia-Conor 0.8 mg Oral tab daily [Active]; tamsulosin 0.4 mg Oral cp24 1 cap once daily [Active]; - PMHx: 12:40 CHF; insomnia; Hypertension; ESRD; Diabetes - NIDDM; iw - PSHx: 12:40 right sholder; bilateral knee repairs; iw - Immunization history:: Client reports receiving the 2nd dose of the Covid vaccine. - Social history:: Smoking status: Smoking status: Patient denies any tobacco usage or history of. ROS: 13:45 Cardiovascular: Negative for chest pain, palpitations, and edema. pm1 13:45 Abdomen/GI: Negative for abdominal pain, nausea, vomiting, diarrhea, and constipation, Back: Negative for injury and pain, MS/Extremity: Negative for injury and deformity, Skin: Negative for injury, rash, and discoloration, Neuro: Negative for headache, weakness, numbness, tingling, and seizure. 13:45 Constitutional: Positive for body aches, fever. 13:45 Respiratory: Positive for cough, shortness of breath, Negative for sputum production. 13:45 All other systems are negative. Exam: 13:45 Constitutional: This is a well developed, well nourished patient who is awake, alert, pm1 and in no acute distress. Head/Face: Normocephalic, atraumatic. 13:45 Back: No spinal tenderness. No costovertebral tenderness. Full range of motion. Skin: Warm, dry with normal turgor. Normal color with no rashes, no lesions, and no evidence of cellulitis. MS/ Extremity: Pulses equal, no cyanosis. Neurovascular intact. Full, normal range of motion. 13:45 Cardiovascular: Exam negative for acute changes, Rate: normal, Rhythm: regular, Pulses: no pulse deficits are appreciated, Heart sounds: normal. 13:45 Respiratory: Exam negative for acute changes, respiratory distress, shortness of breath. 13:45 Abdomen/GI: Inspection: abdomen appears normal, Palpation: abdomen is soft and non-tender, in all quadrants. 13:45 Neuro: Exam negative for acute changes, Orientation: is normal, Mentation: is normal, Motor: is normal, moves all fours. Vital Signs: 12:39 BP 161 / 73; Pulse 90; Resp 18; Temp 99.8; Pulse Ox 97% on R/A; Weight 89.81 kg; Height iw 5 ft. 7 in. (170.18 cm); 12:50 BP 142 / 57; Pulse 83; Resp 17 S; Pulse Ox 95% on R/A; jg9 14:30 BP 167 / 73; Pulse 82; Resp 20 S; Pulse Ox 97% on R/A; jg9 15:30 BP 168 / 83; Pulse 88; Resp 18 S; Pulse Ox 95% on R/A; jg9 16:30 BP 159 / 83; Pulse 88; Resp 20; Pulse Ox 100% on R/A; jg9 17:30 BP 160 / 80; Pulse 92; Resp 17 S; Pulse Ox 93% on R/A; jg9 12:39 Body Mass Index 31.01 (89.81 kg, 170.18 cm) iw MDM: 14:32 Patient medically screened. pm1 16:04 Data reviewed: vital signs. Data interpreted: Pulse oximetry: on room air is 97 %. pm1 Interpretation: normal. 16:09 Counseling: I had a detailed discussion with the patient and/or guardian regarding: the pm1 historical points, exam findings, and any diagnostic results supporting the discharge/admit diagnosis, lab results, radiology results, the need for further work-up and treatment in the hospital, With elevated potassium and did not get his dialysis today. With potassium 6.5 will contact patient's energy and sustainability manager and admit him for dialysis treatment. 16:48 Physician consultation: Constantin Ellison MD was called at 16:21, regarding consult, pm1 patient's condition, and will see patient. 17:18 Physician consultation: Jasbir Hinds was called at 16:50, was contacted at 17:18, pm1 regarding admission, patient's condition, and will see patient. 04/21 12:47 Order name: SARS-COV-2 RT PCR (Document "Date of Onset" if Symptomatic); Complete Time: iw 14:37 04/21 13:45 Order name: Flu; Complete Time: 15:18 pm1 04/21 13:45 Order name: Strep; Complete Time: 15:18 pm1 04/21 14:47 Order name: CBC with Diff; Complete Time: 15:52 pm1 04/21 14:47 Order name: CMP; Complete Time: 15:52 pm1 04/21 15:15 Order name: Throat Culture EDMS 04/22 05:17 Order name: CBC with Automated Diff; Complete Time: 08:25 EDMS 04/22 05:50 Order name: Basic Metabolic Panel; Complete Time: 08:25 EDMS 04/22 05:50 Order name: Phosphorus; Complete Time: 08:25 EDMS 04/22 05:50 Order name: Magnesium; Complete Time: 08:25 EDMS 04/22 07:45 Order name: Glucose, Ancillary Testing; Complete Time: 08:25 EDMS 04/22 09:12 Order name: Protime (+INR); Complete Time: 10:05 EDMS 04/22 09:22 Order name: PTT, Activated Partial Thromb; Complete Time: 10:05 EDMS 04/21 13:45 Order name: Chest Pa And Lat (2 Views) XRAY; Complete Time: 14:46 pm1 04/21 14:47 Order name: IV Saline Lock; Complete Time: 15:56 pm1 04/21 15:54 Order name: EKG; Complete Time: 15:54 pm1 04/21 15:54 Order name: EKG - Nurse/Tech; Complete Time: 17:17 pm1 04/22 12:40 Order name: Glucose, Ancillary Testing; Complete Time: 13:24 EDMS 04/22 16:10 Order name: PTT, Activated Partial Thromb; Complete Time: 16:35 EDMS EC:19 Rate is 95 beats/min. Rhythm is regular. QRS [place] is Normal. UT interval is normal. QRS pm1 interval is normal. QT interval is normal. No Q waves. T waves are Peaked in leads V2, V3, V4. No ST changes noted. Clinical impression: Normal ECG and With peaked T waves V2 V3 and V4. Administered Medications: 13:41 Drug: Ibuprofen 800 mg Route: PO; jg9 14:45 Follow up: Response: No adverse reaction; Pain is unchanged, physician notified jg9 16:18 Drug: Albuterol 5 mg Route: Inhalation; jg9 17:17 Follow up: Response: No adverse reaction jg9 16:20 Drug: Dextrose 10 % in Water 250 ml Route: IV; Rate: bolus; Site: right hand; jg9 18:02 Follow up: IV Status: Completed infusion; IV Intake: 250ml jg9 16:25 Drug: Calcium Gluconate 1 grams Route: IVPB; Infused Over: 60 mins; Site: right hand; jg9 17:17 Follow up: IV Status: Completed infusion; IV Intake: 50ml jg9 16:30 Drug: Insulin Regular Human 5 units {Co-Signature: bp (Henok Pinto RN).} Route: IVP; jg9 Site: right hand; 17:17 Follow up: Response: No adverse reaction jg9 16:34 Not Given (Other Intervention Used): D50W 25 ml IVP once; (0.5 amp) jg9 16:36 Drug: Kayexalate (polystyrene) 45 grams Route: PO; jg9 17:17 Follow up: Response: No adverse reaction jg9 Disposition Summary: 04/21/22 16:54 Hospitalization Ordered Hospitalization Status: Observation pm1 Condition: Stable pm1 Problem: new pm1 Symptoms: have improved pm1 Bed/Room Type: Standard pm1 Provider: Jasbir Hinds(04/21/22 17:18) pm1 Location: Telemetry/MedSurg (observation)(04/22/22 12:53) dw Room Assignment: 222(04/22/22 12:53) dw Diagnosis - Coronavirus infection, unspecified pm1 - Hyperkalemia pm1 Forms: - Medication Reconciliation Form pm1 - SBAR form pm1 Signatures: Dispatcher [employer] EDMS Clara Tim RN RN mw Woody, Diana, RN RN dw Williams, Irene, RN RN iw Marinas, Patrick, NP STAFFING DIRECTOR pm1 Elaine Cardenas RN RN jg9 Henok Pinto RN bp Corrections: (The following items were deleted from the chart) 17:18 16:54 Tisha Oliveros pm1 pm1 19:30 16:54 Telemetry/MedSurg (observation) pm1 mw 19:30 16:54 pm1 mw 04/22 12:53 04/21 19:30 [facility] ER HOLD mw dw 04/22 12:53 04/21 19:30 ERHOLD- mw dw
--- NOTE | 2022-04-21 16:54 | ER ---
Nurse's Notes [facility] Name: Alex Cagle Age: 61 yrs Sex: Male : 1960 Arrival Date: 04/21/2022 Time: 12:35 Bed 28 Private MD: Toya Andrew H Diagnosis: Coronavirus infection, unspecified;Hyperkalemia Presentation: 04/21 12:39 Chief complaint: Patient states: fever, body aches, no cough , X 1 week , sent from dialysis because he had a fever 102. Coronavirus screen: Client presents with at least one sign or symptom that may indicate coronavirus-19. Ebola Screen: Patient negative for fever greater than or equal to 101.5 degrees Fahrenheit, and additional compatible Ebola Virus Disease symptoms Patient denies exposure to infectious person. Patient denies travel to an Ebola-affected area in the 21 days before illness onset. No symptoms or risks identified at this time. Initial Sepsis Screen: Does the patient meet any 2 criteria? No. Patient's initial sepsis screen is negative. Does the patient have a suspected source of infection? No. Patient's initial sepsis screen is negative. Risk Assessment: Do you want to hurt yourself or someone else? Patient reports no desire to harm self or others. Onset of symptoms was April 14, 2022. 12:39 Method Of Arrival: Wheelchair 12:39 Acuity: DEJAN 3 Triage Assessment: 13:04 General: Appears uncomfortable, Behavior is calm, cooperative. jg9 Historical: - Allergies: 12:40 NKA; iw - Home Meds: 12:40 hydralazine 50 mg Oral tab three times a day [Active]; acetaminophen-codeine 300-30 mg iw Oral tab every 6 hours [Active]; amlodipine-benazepril 10-20 mg Oral cap three times a day [Active]; carvedilol 6.25 mg Oral tab 2 times per day [Active]; furosemide 80 mg Oral tab 1 tab 3 times per day [Active]; hydroxyzine HCl 25 mg Oral tab 3 times per day [Active]; Fauzia-Conor 0.8 mg Oral tab daily [Active]; tamsulosin 0.4 mg Oral cp24 1 cap once daily [Active]; - PMHx: 12:40 CHF; insomnia; Hypertension; ESRD; Diabetes - NIDDM; iw - PSHx: 12:40 right sholder; bilateral knee repairs; iw - Immunization history:: Client reports receiving the 2nd dose of the Covid vaccine. - Social history:: Smoking status: Smoking status: Patient denies any tobacco usage or history of. Screenin:02 Abuse screen: Denies threats or abuse. Denies injuries from another. Nutritional jg9 screening: No deficits noted. Tuberculosis screening: No symptoms or risk factors identified. Fall Risk None identified. Assessment: 13:02 Pain: Complains of pain in head, neck, chest, abdomen, pelvis, right arm, right hand, jg9 left arm, left hand, right leg, right foot, left leg, left foot, back of head, back of neck, back of left arm, back of right arm, posterior chest, buttocks, back of left leg, back of right leg, left heel, right heel and back. Respiratory: Reports Airway is patent Respiratory effort is even, unlabored, Breath sounds are clear bilaterally. EENT: Throat is reddened. 14:44 Reassessment: No changes from previously documented assessment. Patient and/or family jg9 updated on plan of care and expected duration. Pain level reassessed. Patient is alert, oriented x 3, equal unlabored respirations, skin warm/dry/pink. Patient states symptoms have not improved. 15:30 Reassessment: No changes from previously documented assessment. Patient and/or family jg9 updated on plan of care and expected duration. Pain level reassessed. Patient is alert, oriented x 3, equal unlabored respirations, skin warm/dry/pink. Vital Signs: 12:39 BP 161 / 73; Pulse 90; Resp 18; Temp 99.8; Pulse Ox 97% on R/A; Weight 89.81 kg; Height iw 5 ft. 7 in. (170.18 cm); 12:50 BP 142 / 57; Pulse 83; Resp 17 S; Pulse Ox 95% on R/A; jg9 14:30 BP 167 / 73; Pulse 82; Resp 20 S; Pulse Ox 97% on R/A; jg9 15:30 BP 168 / 83; Pulse 88; Resp 18 S; Pulse Ox 95% on R/A; jg9 16:30 BP 159 / 83; Pulse 88; Resp 20; Pulse Ox 100% on R/A; jg9 17:30 BP 160 / 80; Pulse 92; Resp 17 S; Pulse Ox 93% on R/A; jg9 12:39 Body Mass Index 31.01 (89.81 kg, 170.18 cm) ED Course: 12:35 Patient arrived in ED. mr 12:35 Toya Andrew DO is Private Physician. mr 12:40 Triage completed. iw 12:41 Arm band placed on. iw 12:56 Elaine Cardenas, KATIANA is Primary Nurse. jg9 13:02 Patient requests pain medication. jg9 13:02 Patient has correct armband on for positive identification. Bed in low position. Call jg9 light in reach. Side rails up X 1. 13:09 Luis Santa NP is PHCP. pm1 13:09 Nilesh Sorenson MD is Attending Physician. pm1 14:14 Chest Pa And Lat (2 Views) XRAY In Process Unspecified. EDMS 14:46 No apparent distress. Resting quietly. Patient requests pain medication. provider jg9 notified that patient denied any improvement in body aches after 800 mg ibuprophen. 15:10 Inserted saline lock: 22 gauge in right hand, using aseptic technique. Blood collected. jg9 16:37 No apparent distress. Appears to be sleeping. Pt visited by significant other. jg9 16:53 Tisha Oliveros MD is Hospitalizing Provider. pm1 17:18 Jasbir Hinds is Hospitalizing Provider. pm1 18:02 To Dialysis. jg9 Administered Medications: 13:41 Drug: Ibuprofen 800 mg Route: PO; jg9 14:45 Follow up: Response: No adverse reaction; Pain is unchanged, physician notified jg9 16:18 Drug: Albuterol 5 mg Route: Inhalation; jg9 17:17 Follow up: Response: No adverse reaction jg9 16:20 Drug: Dextrose 10 % in Water 250 ml Route: IV; Rate: bolus; Site: right hand; jg9 18:02 Follow up: IV Status: Completed infusion; IV Intake: 250ml jg9 16:25 Drug: Calcium Gluconate 1 grams Route: IVPB; Infused Over: 60 mins; Site: right hand; jg9 17:17 Follow up: IV Status: Completed infusion; IV Intake: 50ml jg9 16:30 Drug: Insulin Regular Human 5 units {Co-Signature: bp (Henok Pinto RN).} Route: IVP; jg9 Site: right hand; 17:17 Follow up: Response: No adverse reaction jg9 16:34 Not Given (Other Intervention Used): D50W 25 ml IVP once; (0.5 amp) jg9 16:36 Drug: Kayexalate (polystyrene) 45 grams Route: PO; jg9 17:17 Follow up: Response: No adverse reaction jg9 Intake: 17:17 IV: 50ml; Total: 50ml. jg9 18:02 IV: 250ml; Total: 300ml. jg9 Outcome: 16:54 Decision to Hospitalize by Provider. pm1 04/22 16:36 Patient left the ED. jd3 Signatures: Dispatcher [employer] LENIL Mervat Rojas Irene, RN RN iw Luis Santa, MELONY HEMODIALYSIS TECHNICIAN pm1 Parmjit Jackson RN RN jd3 Elaine Cardenas RN RN jg9 Henok Pinto RN bp Corrections: (The following items were deleted from the chart) 04/21 12:41 12:39 Pulse 90bpm; Resp 18bpm; Pulse Ox 97% RA; Temp 99.8F; 89.81 kg; Height 5 ft. 7 iw in.; BMI: 31.0; iw
--- NOTE | 2022-04-21 18:28 | P.HP ---
Certification for Inpatient Patient admitted to: Observation With expected LOS: <2 Midnights Practitioner: I am a practitioner with admitting privileges, knowledge of patient current condition, hospital course, and medical plan of care. Services: Services provided to patient in accordance with Admission requirements found in Title 42 Section 412.3 of the Code of Federal Regulations Patient History Date of Service: 04/21/22 Reason for admission: Hyperkalemia History of Present Illness: 61-year-old gentleman with a history of end-stage renal disease on hemodialysis, recently hospitalized and noted to have upper extremity thrombosis presented to the emergency department with a complaint of fever and generalized weakness and cough of 1 week duration. Patient was noted to have a fever up to 102 during dialysis today and was therefore referred to the emergency department. Work-up in the emergency department revealed hyperkalemia with a potassium of 6.5. Chest x-ray reviewed clear lungs. Nephrology was consulted who recommended hospitalization for urgent hemodialysis to treat the hyperkalemia. Patient with upper respiratory symptoms from COVID-19 infection, no pneumonia. He is hospitalized for further management. Allergies No Known Allergies Allergy (Verified 01/01/21 21:09) Home Medications: Amlodipine Besylate/Benazepril [Amlodipine-Benazepril 10-20 mg] 1 tab PO TID 11/27/20 Furosemide [Lasix] 80 mg PO BID 11/27/20 Apixaban [Eliquis] 5 mg PO BID #60 tablet 04/08/22 Codeine/APAP [Tylenol #3*] 60 mg PO TID 04/08/22 Fish Oil/Borage/Flax/Om3,6,9 1 [[place] 3-6-9 1,200 mg Softgel] 1 tab PO DAILY 04/08/22 Folic Acid/Vit B Complex and C [Fauzia-Conor Tablet] 1 tab PO DAILY 04/08/22 Heparin [Heparin 1,000 units/mL *] 4,000 unit IV EVERY HD vial 04/08/22 Lisinopril [Zestril] 20 mg PO DAILY 04/08/22 Sucroferric Oxyhydroxide [Velphoro] 500 mg PO AC 04/08/22 - Past Medical/Surgical History Diabetic: Yes -: End-stage renal disease on hemodialysis -: Hypertension -: HTN -: DM -: Peritoneal dialysis port -: shoulder surgery Psychosocial/ Personal History: Patient with 5 children. - Family History Father -: Heart disease - Social History Alcohol use: No CD- Drugs: No Caffeine use: No Review of Systems Other: except as documented, all other systems reviewed and negative. Physical Examination - Physical Exam General: In no apparent distress, Other (Drowsy) HEENT: PERRLA, Mucous membr. moist/pink, Sclerae nonicteric Neck: Supple, JVD not distended Respiratory: Clear to auscultation bilaterally, Normal air movement Cardiovascular: No edema, Regular rate/rhythm, Normal S1 S2 Gastrointestinal: Normal bowel sounds, Soft and benign, Non-distended, No tenderness Musculoskeletal: No swelling Integumentary: No rashes Neurological: Normal strength at 5/5 x4 extr, Other (Somnolent) - Studies Laboratory Data (last 24 hrs) 04/21/22 15:10: Sodium 131 L, Potassium 6.5 H*, BUN 61 H, Creatinine 12.00 H* D, Glucose 100, Total Bilirubin 0.5, AST 9 L, ALT 16, Alkaline Phosphatase 128 H 04/21/22 15:10: WBC 5.8, Hgb 8.5 L, Hct 25.7 L, Plt Count 231 Microbiology Data (last 24 hrs): 04/21/22 14:30 Throat Group A Streptococcus Rapid Screen - Final 04/21/22 14:30 Nasopharnyx Influenza Type A Antigen Screen - Final 04/21/22 14:30 Nasopharnyx Influenza Type B Antigen Screen - Final Assessment and Plan - Problems (Diagnosis) (1) Fever Current Visit: Yes Status: Acute (2) COVID-19 Current Visit: Yes Status: Acute (3) Hyperkalemia Current Visit: No Status: Acute (4) Diabetes mellitus Current Visit: No Status: Chronic Qualifiers: Diabetes mellitus type: type 2 Diabetes mellitus manager long term care insulin use: without retirement use Diabetes mellitus complication status: with kidney complications Diabetes mellitus complication detail: with chronic kidney disease Chronic kidney disease stage: on chronic dialysis Qualified Code(s): E11.22 - Type 2 diabetes mellitus with diabetic chronic kidney disease; N18.6 - End stage renal disease; Z99.2 - Dependence on renal dialysis (5) ESRD (end stage renal disease) on dialysis Current Visit: No Status: Chronic (6) Left upper extremity deep vein thrombosis Current Visit: No Status: Acute - Plan Place patient under observation. Nephrology consulted for emergent hemodialysis. Patient with upper respiratory symptoms from COVID-19, no pneumonia. Supportive measures Continue Eliquis for history of upper extremity DVT Insulin sliding scale for glucose management. Continue home antihypertensives. Reconcile and continue other home medications. Hydralazine as needed for BP spikes. - Advance Directives Does patient have a Living Will: No Does patient have a Durable POA for Healthcare: Yes
[2022-04-21] MEDS ORDERED: ONDANSETRON 4 MG/2 ML VIAL IV PRN (22:39)
[2022-04-21] MEDS: INSULIN -REGULAR HUMAN 50 UNIT/0.5 ML ML SQ SCH (22:39)
[2022-04-21] MEDS: LIDOCAINE VISCOUS 2% SOLN 15 ML UDC PO PRN (22:52)
[2022-04-21] MEDS ORDERED: LIDOCAINE VISCOUS 2% SOLN 15 ML UDC ONE (22:59)
[2022-04-22] MEDS ORDERED: CODEINE 30MG/APAP 300MG TAB ONE (02:55)
[2022-04-22 03:30] VITALS: BMI 30.9
[2022-04-22 05:15] LABS: Absolute Lymphocytes (CBC) 0.3 K/uL (0.7-4.9); Hematocrit 27.9 % (39.6-49.0); Lymphocytes % 7.4 % (15.3-44.8); MCV 87.8 fL (80-100); MPV 7.1 fL (7.6-11.3); RBC Red Blood Cell Count 3.18 M/uL (4.33-5.43)
[2022-04-22 05:49] LABS: Magnesium 2.4 mg/dL (1.8-2.4); Phosphorus 6.3 mg/dL (2.5-4.9); Potassium 5.8 mmol/L (3.5-5.1)
[2022-04-22] MEDS: INSULIN -REGULAR HUMAN 50 UNIT/0.5 ML ML SQ SCH ×4 (07:30→19:53)
[2022-04-22] MEDS: LIDOCAINE VISCOUS 2% SOLN 15 ML UDC PO PRN (07:39)
[2022-04-22] MEDS ORDERED: LIDOCAINE VISCOUS 2% SOLN 15 ML UDC ONE (07:44)
[2022-04-22 09:12] LABS: Protime INR 1.07
[2022-04-22] MEDS ORDERED: HEPARIN/D5W 25,000 UNIT/500 ML BAG IV ONE (10:47)
[2022-04-22] MEDS ORDERED: HEPARIN 5000 UNIT/ML 1 ML VIAL ONE (10:47)
[2022-04-22] MEDS: HEPARIN/D5W 25,000 UNIT/500 ML BAG IV SCH (11:03)
--- NOTE | 2022-04-22 16:11 | P.CNS ---
Date of Consult: 04/22/22 Reason for Consult: ESRD Requesting Physician: fatoumata stapleton Chief Complaint: Hyperkalemia History of Present Illness: 61M w/ PMHx of ESRD on HD, DVT, anemia, & renal osteodystrophy, who p/w fever, cough, & generalized weakness, admitted yesterday for covid infection. Found to have hyperkalemia 6.5. Received HD yesterday. Received HD again today for hyperkalemia. Allergies No Known Allergies Allergy (Verified 01/01/21 21:09) Home Medications: Amlodipine Besylate/Benazepril [Amlodipine-Benazepril 10-20 mg] 1 tab PO TID 11/27/20 Furosemide [Lasix] 80 mg PO BID 11/27/20 Apixaban [Eliquis] 5 mg PO BID #60 tablet 04/08/22 Codeine/APAP [Tylenol #3*] 60 mg PO TID 04/08/22 Fish Oil/Borage/Flax/Om3,6,9 1 [[place] 3-6-9 1,200 mg Softgel] 1 tab PO DAILY 04/08/22 Folic Acid/Vit B Complex and C [Fauzia-Conor Tablet] 1 tab PO DAILY 04/08/22 Heparin [Heparin 1,000 units/mL *] 4,000 unit IV EVERY HD vial 04/08/22 Lisinopril [Zestril] 20 mg PO DAILY 04/08/22 Sucroferric Oxyhydroxide [Velphoro] 500 mg PO AC 04/08/22 - Past Medical/Surgical History Diabetic: Yes -: End-stage renal disease on hemodialysis -: Hypertension -: HTN -: DM -: Peritoneal dialysis port -: shoulder surgery Psychosocial/ Personal History: Patient with 5 children. - Family History Father Medical History: Heart disease - Social History Smoking Status: Unknown if ever smoked Alcohol use: No CD- Drugs: No Caffeine use: No Place of Residence: Home Review of Systems General: Weakness Eyes: Unremarkable ENT: Unremarkable Respiratory: Cough Cardiovascular: Unremarkable Gastrointestinal: Unremarkable Genitourinary: Unremarkable Musculoskeletal: Unremarkable Integumentary: Unremarkable Neurological: Unremarkable Lymphatics: Unremarkable Physical Examination Temp Pulse Resp BP Pulse Ox 98 F 97 H 16 144/90 H 100 04/22/22 08:00 04/22/22 12:00 04/22/22 12:00 04/22/22 12:00 04/22/22 12:00 General: In no apparent distress, Other (Appears chronically ill) HEENT: Atraumatic, Normocephalic Neck: Supple, JVD not distended Respiratory: Other (Symmetric chest expansion) Cardiovascular: No rubs, No murmurs Gastrointestinal: Soft and benign, No rebound Musculoskeletal: No clubbing Integumentary: No warmth Neurological: Normal speech, Normal tone Urinary: Other (No bladder distention) External genitalia: Deferred Rectal: Deferred Laboratory Data (last 24 hrs) 04/22/22 03:56: Sodium 135 L, Potassium 5.8 H*, BUN 34 H D, Creatinine 7.93 H* D, Glucose 81, Phosphorus 6.3 H, Magnesium 2.4 04/22/22 03:56: WBC 4.1 L D, Hgb 9.5 L, Hct 27.9 L, Plt Count 233 Conclusions/Impression: # ESRD on HD Received HD yesterday & today for hyperK Renal + DM diet Monitor renal panel # HyperK HD as above # COVID 19 infection No pneumonia Per primary team # Htn Cont current BP med regimen # Anemia Monitor H/H # Renal osteodystrophy Monitor Ca & Phos # DM2 Mngt per primary team
--- NOTE | 2022-04-22 16:39 | P.PN ---
Subjective Date of Service: 04/22/22 Chief Complaint: Hyperkalemia Patient denies any complaints today. Blood shows persistent hyperkalemia. Physical Examination - Vital Signs Temperature: 98 F Blood Pressure: 142/79 Pulse: 96 Respirations: 16 Pulse Ox (%): 100 - Physical Exam General: Alert, In no apparent distress, Oriented x3 HEENT: Mucous membr. moist/pink Neck: Supple, JVD not distended Respiratory: Clear to auscultation bilaterally, Normal air movement Cardiovascular: No edema, Regular rate/rhythm, Normal S1 S2 Gastrointestinal: Normal bowel sounds, Soft and benign, Non-distended, No tenderness Musculoskeletal: No swelling Integumentary: No rashes Neurological: Normal strength at 5/5 x4 extr - Studies Laboratory Data (last 24 hrs) 04/22/22 03:56: Sodium 135 L, Potassium 5.8 H*, BUN 34 H D, Creatinine 7.93 H* D, Glucose 81, Phosphorus 6.3 H, Magnesium 2.4 04/22/22 03:56: WBC 4.1 L D, Hgb 9.5 L, Hct 27.9 L, Plt Count 233 Microbiology Data (last 24 hrs): 04/21/22 14:30 Throat Group A Streptococcus Rapid Screen - Final 04/21/22 14:30 Nasopharnyx Influenza Type A Antigen Screen - Final 04/21/22 14:30 Nasopharnyx Influenza Type B Antigen Screen - Final Assessment And Plan - Current Problems (Diagnosis) (1) Fever Current Visit: Yes Status: Acute (2) COVID-19 Current Visit: Yes Status: Acute (3) Hyperkalemia Current Visit: No Status: Acute (4) Diabetes mellitus Current Visit: No Status: Chronic Qualifiers: Diabetes mellitus type: type 2 Diabetes mellitus long term care phlebotomist insulin use: without long term care phlebotomist use Diabetes mellitus complication status: with kidney complications Diabetes mellitus complication detail: with chronic kidney disease Chronic kidney disease stage: on chronic dialysis Qualified Code(s): E11.22 - Type 2 diabetes mellitus with diabetic chronic kidney disease; N18.6 - End stage renal disease; Z99.2 - Dependence on renal dialysis (5) ESRD (end stage renal disease) on dialysis Current Visit: No Status: Chronic (6) Left upper extremity deep vein thrombosis Current Visit: No Status: Acute - Plan Seen by nephrology and hemodialysis repeated today. Patient with upper respiratory symptoms from COVID-19, no pneumonia. Supportive measures Anticoagulation choice discussed with nephrology Dr. Ellison and he prefers warfarin for ESRD on hemodialysis. Patient started on heparin drip and Coumadin. Monitor INR daily. Continue heparin drip until INR is therapeutic. Insulin sliding scale for glucose management. Continue home antihypertensives. Continue other home medications. Hydralazine as needed for BP spikes.
[2022-04-22] MEDS: WARFARIN SODIUM 7.5 MG TAB PO SCH (17:12)
[2022-04-22] MEDS: CODEINE 30MG/APAP 300MG TAB PO PRN (23:55)
[2022-04-23] MEDS: CODEINE 30MG/APAP 300MG TAB PO PRN (05:05)
[2022-04-23 06:31] LABS: MCV 87.9 fL (80-100)
[2022-04-23 07:03] LABS: Potassium 4.4 mmol/L (3.5-5.1)
[2022-04-23 07:16] LABS: Protime INR 1.04
[2022-04-23] MEDS: INSULIN -REGULAR HUMAN 50 UNIT/0.5 ML ML SQ SCH ×4 (07:30→20:43)
[2022-04-23 08:10] LABS: Lymphocytes % 15.5 % (15.3-44.8); MPV 7.4 fL (7.6-11.3)
[2022-04-23 08:11] LABS: Absolute Lymphocytes (CBC) 0.8 K/uL (0.7-4.9)
[2022-04-23] MEDS: HEPARIN/D5W 25,000 UNIT/500 ML BAG IV SCH (08:51)
--- NOTE | 2022-04-23 09:05 | EKG ---
Test Date: 2022-04-21 Test Time: 17:18:04 Home Care Liaison: LEE ANN MEASUREMENT RESULTS: Intervals: Rate: 95 VA: 182 QRSD: 98 QT: 372 QTc: 467 [place]: P: 42 VA: 182 QRS: 72 T: 39 INTERPRETIVE STATEMENTS: Normal sinus rhythm Normal ECG Compared to ECG 04/08/2022 04:33:43 No significant changes Electronically Signed On 04-23-22 09:03:02 CDT by Deon Lawton
--- NOTE | 2022-04-23 12:46 | P.PN ---
Subjective Date of Service: 04/23/22 Chief Complaint: Hyperkalemia Seen complaining of pain in the leg and joint which is chronic. . Physical Examination - Vital Signs Temperature: 98.2 F Blood Pressure: 175/86 Pulse: 83 Respirations: 18 Pulse Ox (%): 96 - Studies Microbiology Data (last 24 hrs): 04/21/22 14:30 Throat Culture & Sensitivity - Final NORMAL UPPER RESPIRATORY RAGHU GROWN. Assessment And Plan - Current Problems (Diagnosis) (1) Fever Current Visit: Yes Status: Acute (2) COVID-19 Current Visit: Yes Status: Acute (3) Hyperkalemia Current Visit: No Status: Acute (4) Diabetes mellitus Current Visit: No Status: Chronic Qualifiers: Diabetes mellitus type: type 2 Diabetes mellitus intermediate designer insulin use: without retirement use Diabetes mellitus complication status: with kidney complications Diabetes mellitus complication detail: with chronic kidney disease Chronic kidney disease stage: on chronic dialysis Qualified Code(s): E11.22 - Type 2 diabetes mellitus with diabetic chronic kidney disease; N18.6 - End stage renal disease; Z99.2 - Dependence on renal dialysis (5) ESRD (end stage renal disease) on dialysis Current Visit: No Status: Chronic (6) Left upper extremity deep vein thrombosis Current Visit: No Status: Acute - Plan Physical examination: General: Alert, In no apparent distress, Oriented x3 HEENT: Mucous membr. moist/pink Neck: Supple, JVD not distended Respiratory: Clear to auscultation bilaterally, Normal air movement Cardiovascular: No edema, Regular rate/rhythm, Normal S1 S2 Gastrointestinal: Normal bowel sounds, Soft and benign, Non-distended, No tenderness Musculoskeletal: No swelling Integumentary: No rashes Neurological: Normal strength at 5/5 x4 extr Nephrology is following for hemodialysis Patient with upper respiratory symptoms from COVID-19, no pneumonia. Supportive measures Anticoagulation choice discussed with nephrology Dr. Ellison and he prefers warfarin for ESRD on hemodialysis. Continue heparin drip and Coumadin. Monitor INR daily. Continue heparin drip until INR is therapeutic. Insulin sliding scale for glucose management. Continue home antihypertensives. Continue other home medications. Hydralazine as needed for BP spikes. [place] as needed for pain.
[2022-04-23] MEDS: lisinopriL 20 MG TAB PO SCH (13:10)
[2022-04-23] MEDS: AMLODIPINE 10 MG TAB PO SCH (13:10)
[2022-04-23] MEDS: HYDROCODONE/APAP 5/325 MG TAB PO PRN ×2 (13:38→20:34)
--- NOTE | 2022-04-23 14:45 | P.PN ---
Subjective Date of Service: 04/23/22 Chief Complaint: Hyperkalemia Subjective Pt with ESRD , admitted for fever , tested positive for COVID today noovernight events BP [id number] Next HD on monday on heparin for bridging monitor INR level Physical exam General: AAOx3, NAD, obese HEENT PERRLA, moist mucose membrane neck: supple, no elevated JVD CHEST; CTAB, no wheezes or rales HEART : RRR. Normal S1,2 no murmur or rub Abd: soft, Nt Ext: no edema Skin : No rash A/P # ESRD on HD next HD on Monday Renal + DM diet Monitor renal panel # HyperK resolved renal diet # COVID 19 infection Per primary team # Htn elevated will add coreg # Anemia # Renal osteodystrophy Monitor Ca & Phos # DM2 Mngt per primary team Total time spent 45 minutes including documentation, reviewing labs , placing orders and discussing with medical team Monitor H/H Physical Examination - Vital Signs Temperature: 98.2 F Blood Pressure: 175/86 Pulse: 83 Respirations: 16 Pulse Ox (%): 96 - Studies Microbiology Data (last 24 hrs): 04/21/22 14:30 Throat Culture & Sensitivity - Final NORMAL UPPER RESPIRATORY RAGHU GROWN.
[2022-04-23] MEDS: WARFARIN SODIUM 7.5 MG TAB PO SCH (17:00)
[2022-04-23] MEDS ORDERED: WARFARIN SODIUM 2.5 MG TAB ONE (17:49)
[2022-04-23] MEDS: carvediloL 3.125 MG TAB PO SCH (17:57)
[2022-04-23] MEDS ORDERED: HYDRALAZINE HCL 20 MG/ML VIAL IV PRN (18:09)
[2022-04-23] MEDS: LIDOCAINE VISCOUS 2% SOLN 15 ML UDC PO PRN (20:55)
[2022-04-24] MEDS: HYDROCODONE/APAP 5/325 MG TAB PO PRN ×4 (00:45→21:44)
[2022-04-24 01:08] LABS: Protime INR 1.17
[2022-04-24] MEDS: INSULIN -REGULAR HUMAN 50 UNIT/0.5 ML ML SQ SCH ×4 (07:30→20:37)
[2022-04-24] MEDS: lisinopriL 20 MG TAB PO SCH (10:16)
[2022-04-24] MEDS: AMLODIPINE 10 MG TAB PO SCH (10:17)
[2022-04-24] MEDS: carvediloL 3.125 MG TAB PO SCH ×2 (10:18→17:10)
[2022-04-24] MEDS: HEPARIN/D5W 25,000 UNIT/500 ML BAG IV SCH (10:20)
--- NOTE | 2022-04-24 14:06 | P.PN ---
Subjective Date of Service: 04/24/22 Chief Complaint: Hyperkalemia Subjective Pt with ESRD , admitted for fever , tested positive for COVID today no overnight events Next HD on monday on heparin for bridging monitor INR level , now 1.1 Physical exam General: AAOx3, NAD, obese HEENT PERRLA, moist mucose membrane neck: supple, no elevated JVD CHEST; CTAB, no wheezes or rales HEART : RRR. Normal S1,2 no murmur or rub Abd: soft, Nt Ext: no edema Skin : No rash A/P # ESRD on HD next HD on Monday Renal + DM diet Monitor renal panel # HyperK resolved renal diet # COVID 19 infection Per primary team # Htn better controlled now Cont current meds # Anemia # Renal osteodystrophy Monitor Ca & Phos # DM2 Mngt per primary team Total time spent 45 minutes including documentation, reviewing labs , placing orders and discussing with medical team Monitor H/H Physical Examination - Vital Signs Temperature: 97.8 F Blood Pressure: 139/62 Pulse: 77 Respirations: 18 Pulse Ox (%): 97
--- NOTE | 2022-04-24 15:32 | P.PN ---
Subjective Date of Service: 04/24/22 Chief Complaint: Hyperkalemia No new complaint today. . Physical Examination - Vital Signs Temperature: 97.8 F Blood Pressure: 139/62 Pulse: 77 Respirations: 18 Pulse Ox (%): 97 Assessment And Plan - Current Problems (Diagnosis) (1) Fever Current Visit: Yes Status: Acute (2) COVID-19 Current Visit: Yes Status: Acute (3) Hyperkalemia Current Visit: No Status: Acute (4) Diabetes mellitus Current Visit: No Status: Chronic Qualifiers: Diabetes mellitus type: type 2 Diabetes mellitus halfway insulin use: without halfway use Diabetes mellitus complication status: with kidney complications Diabetes mellitus complication detail: with chronic kidney disease Chronic kidney disease stage: on chronic dialysis Qualified Code(s): E11.22 - Type 2 diabetes mellitus with diabetic chronic kidney disease; N18.6 - End stage renal disease; Z99.2 - Dependence on renal dialysis (5) ESRD (end stage renal disease) on dialysis Current Visit: No Status: Chronic (6) Left upper extremity deep vein thrombosis Current Visit: No Status: Acute - Plan Physical examination: General: Alert, In no apparent distress, Oriented x3 HEENT: Mucous membr. moist/pink Neck: Supple, JVD not distended Respiratory: Clear to auscultation bilaterally, Normal air movement Cardiovascular: No edema, Regular rate/rhythm, Normal S1 S2 Gastrointestinal: Normal bowel sounds, Soft and benign, Non-distended, No tenderness Musculoskeletal: No swelling Neurological: Normal strength at 5/5 x4 extr Nephrology is following for hemodialysis Patient with upper respiratory symptoms from COVID-19, no pneumonia. Supportive measures Anticoagulation choice discussed with nephrology Dr. Ellison and he prefers warfarin for ESRD on hemodialysis. Continue heparin drip and Coumadin. Monitor INR daily. Continue heparin drip until INR is therapeutic. Insulin sliding scale for glucose management. Continue home antihypertensives. Hydralazine as needed for BP spikes. [place] as needed for pain.
[2022-04-24] MEDS ORDERED: POLYVINYL ALCOHOL 1.4% 15 ML EACH EYE PRN (16:31)
[2022-04-24] MEDS ORDERED: WARFARIN SODIUM 2.5 MG TAB ONE (16:56)
[2022-04-24] MEDS: WARFARIN SODIUM 7.5 MG TAB PO SCH (17:00)
[2022-04-24] MEDS: ACETAMINOPHEN 500 MG TAB PO PRN (18:21)
[2022-04-25] MEDS: ACETAMINOPHEN 500 MG TAB PO PRN (01:46)
[2022-04-25 04:30] LABS: Absolute Lymphocytes (CBC) 1.2 K/uL (0.7-4.9); Hematocrit 24.4 % (39.6-49.0); Lymphocytes % 23.4 % (15.3-44.8); MCV 87.1 fL (80-100); MPV 7.3 fL (7.6-11.3)
[2022-04-25 04:33] LABS: Protime INR 1.88
[2022-04-25] MEDS: HEPARIN/D5W 25,000 UNIT/500 ML BAG IV SCH (04:42)
[2022-04-25 04:54] LABS: Potassium 5.4 mmol/L (3.5-5.1)
[2022-04-25] MEDS: carvediloL 3.125 MG TAB PO SCH (06:32)
[2022-04-25] MEDS: INSULIN -REGULAR HUMAN 50 UNIT/0.5 ML ML SQ SCH ×2 (07:30→11:30)
[2022-04-25 07:43] LABS: Magnesium 2.2 mg/dL (1.8-2.4)
[2022-04-25] MEDS: lisinopriL 20 MG TAB PO SCH (09:00)
[2022-04-25] MEDS: AMLODIPINE 10 MG TAB PO SCH (09:00)
[2022-04-25 09:12] VITALS: BP 163/75; TEMP 98.2
[2022-04-25 09:35] VITALS: O2SAT 98
--- NOTE | 2022-04-25 13:21 | P.DS ---
Admission Date: 04/22/22 Discharge Date: 04/25/22 Disposition: ROUTINE DISCHARGE Discharge Condition: FAIR Reason for Admission: Hyperkalemia - Problems (1) Fever Current Visit: Yes Status: Acute (2) COVID-19 Current Visit: Yes Status: Acute (3) Hyperkalemia Current Visit: No Status: Acute (4) Diabetes mellitus Current Visit: No Status: Chronic Qualifiers: Diabetes mellitus type: type 2 Diabetes mellitus half-way insulin use: without half-way use Diabetes mellitus complication status: with kidney complications Diabetes mellitus complication detail: with chronic kidney disease Chronic kidney disease stage: on chronic dialysis Qualified Code(s): E11.22 - Type 2 diabetes mellitus with diabetic chronic kidney disease; N18.6 - End stage renal disease; Z99.2 - Dependence on renal dialysis (5) ESRD (end stage renal disease) on dialysis Current Visit: No Status: Chronic (6) Left upper extremity deep vein thrombosis Current Visit: No Status: Acute Brief History of Present Illness: 61-year-old gentleman with a history of end-stage renal disease on hemodialysis, recently hospitalized and noted to have upper extremity thrombosis presented to the emergency department with a complaint of fever and generalized weakness and cough of 1 week duration. Patient was noted to have a fever up to 102 during dialysis today and was therefore referred to the emergency department. Work-up in the emergency department revealed hyperkalemia with a potassium of 6.5. Chest x-ray reviewed clear lungs. Nephrology was consulted who recommended hospitalization for urgent hemodialysis to treat the hyperkalemia. Patient with upper respiratory symptoms from COVID-19 infection, no pneumonia. He is hospitalized for further management. Hospital Course: Patient admitted to the medical floor, nephrology consulted and patient underwent routine hemodialysis He had upper respiratory symptoms from COVID-19, no pneumonia. Patient with a history of left IJ vein thrombosis. Anticoagulation choice discussed with nephrology Dr. Ellison and he prefers warfarin for ESRD on hemodialysis as compared to Eliquis. Patient started on heparin drip and Coumadin. INR monitor daily. INR is up to 1.88. Patient was clinically stable during the hospital stay. At this point he is discharged with oral, since INR is almost therapeutic. Continued home antihypertensives. Patient clinically stable for discharge. Recommended PT and recheck within 2 days for Coumadin dose adjustment. Also recommended INR checked during hemodialysis for Coumadin dose adjustment. Patient has been informed to stop taking the Eliquis and he voiced under standing. Vital Signs/Physical Exam: Temp Pulse Resp BP Pulse Ox 98.2 F 73 20 163/75 H 98 04/25/22 08:00 04/25/22 08:00 04/25/22 08:00 04/25/22 08:00 04/25/22 08:00 General: Alert, In no apparent distress, Oriented x3 HEENT: Mucous membr. moist/pink Neck: Supple, JVD not distended Respiratory: Clear to auscultation bilaterally, Normal air movement Cardiovascular: No edema, Regular rate/rhythm, Normal S1 S2 Gastrointestinal: Normal bowel sounds, Soft and benign, Non-distended, No tenderness Musculoskeletal: No swelling Integumentary: No rashes Neurological: Normal strength at 5/5 x4 extr Laboratory Data at Discharge: WBC 5.3 K/uL (4.3-10.9) 04/25/22 03:57 Hgb 8.4 g/dL (13.6-17.9) L 04/25/22 03:57 Hct 24.4 % (39.6-49.0) L D 04/25/22 03:57 Plt Count 179 K/uL (152-406) 04/25/22 03:57 PT 21.0 SECONDS (9.5-12.5) H 04/25/22 03:57 INR 1.88 04/25/22 03:57 APTT 74.4 SECONDS (24.3-36.9) H 04/25/22 03:57 Sodium 130 mmol/L (136-145) L 04/25/22 03:57 Potassium 5.4 mmol/L (3.5-5.1) H 04/25/22 03:57 BUN 77 mg/dL (7-18) H D 04/25/22 03:57 Creatinine 10.90 mg/dL (0.55-1.3) H* D 04/25/22 03:57 Glucose 87 mg/dL (74-106) 04/25/22 03:57 Phosphorus 10.0 mg/dL (2.5-4.9) H* 04/25/22 03:57 Magnesium 2.2 mg/dL (1.8-2.4) 04/25/22 03:57 Total Bilirubin 0.5 mg/dL (0.2-1.0) 04/21/22 15:10 AST 9 U/L (15-37) L 04/21/22 15:10 ALT 16 U/L (12-78) 04/21/22 15:10 Alkaline Phosphatase 128 U/L (45-117) H 04/21/22 15:10 Home Medications: Amlodipine Besylate/Benazepril [Amlodipine-Benazepril 10-20 mg] 1 tab PO TID 11/27/20 Codeine/APAP [Tylenol #3*] 60 mg PO TID 04/08/22 Fish Oil/Borage/Flax/Om3,6,9 1 [[place] 3-6-9 1,200 mg Softgel] 1 tab PO DAILY 04/08/22 Folic Acid/Vit B Complex and C [Fauzia-Conor Tablet] 1 tab PO DAILY 04/08/22 Heparin [Heparin 1,000 units/mL *] 4,000 unit IV EVERY HD vial 04/08/22 Sucroferric Oxyhydroxide [Velphoro] 500 mg PO AC 04/08/22 Carboxymethylcellulose Sodium [Thera Tears] 1 each OP QID 60 Days #1 droperette 04/25/22 Hydrocodone 5/APAP 325 [[place] 5/325*] 1 tab PO Q6H PRN #12 tab 04/25/22 Warfarin Sodium [Coumadin*] 7.5 mg PO DAILY 5 PM #30 tab 04/25/22 carvediloL [Coreg*] 3.125 mg PO BID 6AM 6PM #60 tab 04/25/22 New Medications: carvediloL [Coreg*] 3.125 mg PO BID 6AM 6PM #60 tab Warfarin Sodium [Coumadin*] 7.5 mg PO DAILY 5 PM #30 tab Hydrocodone 5/APAP 325 [[place] 5/325*] 1 tab PO Q6H PRN #12 tab PRN Reason: Pain Scale 5-7 (Moderate) Carboxymethylcellulose Sodium [Thera Tears] 1 each OP QID 60 Days #1 droperette Physician Discharge Instructions: Please check PT/INR within [address] Ellison for coumadin dose adjustment. Diet: Renal Activity: Ad adina Followup: Lorrie LIZARRAGA,Toya Burger DO [Primary Care Provider] - Time spent managing pt's care (in minutes): 38
--- NOTE | 2022-04-25 22:51 | PN ---
Date of Progress Note: 04/25/2022 Chief Complaint: End-stage renal disease, fluid overload. Subjective: The patient was admitted for fever. He tested positive for COVID. He denies complaints. He is undergoing dialysis today. Review of Systems: Denies new complaints. Subjective: Lungs: No wheezing. No rhonchi. Heart: S1, S2. Abdomen: Soft. Benign. Extremities: No edema. Impression And Plan: 1. End-stage renal disease. Dialysis is ordered for today with ultrafiltration. Continue fluid restriction, low-sodium diet monitor. Blood pressure closely during dialysis. 2. Hyperkalemia: Resolved. The patient needs to follow low-potassium diet. Continue dialysis 3 times per week. 3. COVID-19 infection: Per Primary Team. 4. Hypertension. Monitor blood pressure. Continue blood pressure medication. 5. Diabetes mellitus: Per Primary. The patient will continue insulin. NADEEN/MODRamone Voice ID: [id number] Report ID: [id number] MARY
--- OUTSIDE RECORDS SUMMARY | 2022-04-28 05:58 | XMS REPORT | Continuity of Care Document ---
:1960 Author Organization [facility] t Address [address] [place] [address] Care Team Providers Name Role Phone Andrew Primary Care Physician [id number] Attending Clinician Unavailable BONI SHRESTHA Attending Clinician Unavailable Marlene Lara Attending Clinician Unavailable Esdras CRUZ, Forrest Attending Clinician Forrest OLSEN Attending Clinician Unavailable [facility] Attending Clinician Desirae CRUZ Attending Clinician BONI SANDRA Attending Clinician Unavailable BONI GOMEZ Attending Clinician Unavailable REBEL Attending Clinician Unavailable MOUNA RACHEL Attending Clinician Unavailable RAAF MOORE Attending Clinician Unavailable DOUGLAS ROSENTHAL Attending Clinician Unavailable [id number] Admitting Clinician Unavailable BONI SHRESTHA Admitting Clinician Unavailable BONI SANDRA Admitting Clinician Unavailable REBEL Admitting Clinician Unavailable Payers Payer Name Policy Type Policy Number Effective Date Expiration Date S quan [facility] [id number] Problems Condition Condition Condition Status Onset Resolution Last Treating Co mments Source Name Details Category Date Date Treatment Clinician Date ESRD Diagnosis Active 2019-102020-08-12 Mem oria NEEDING 0-29 08:39:00 l DIALYSIS, ESRD 00:00: Marlo VOLUME NEEDING 00 OVERLOAD DIALYSIS, VOLUME OVERLOAD Active 08/06/[address] [facility] [address] SENT - Diagnosis Active 2019-102020-08-06 Memoria FLUID 16:50:[address] SENT 00:00: Mercedez nn - FLUID 00 OVERLOAD Active 08/06/2020 [facility] DIALYSIS Diagnosis Active 2019-102020-07-24 emoria ISSUE 08:37:00 l DIALYSIS 00:00: Rafael n ISSUE 00 Active 07/24/2020 [facility] PERITONITI Diagnosis Active 2020-07-09 Memoria S, 07-06 16:32:00 l DIABETES, 00:00: [place] ESRD ON PERITONITI 00 DIALYSIS S, DIABETES, ESRD ON DIALYSIS Active 07/06/2020 [facility] ABD PAIN Diagnosis Active 2020-07-06 emoria 07-06 07:06:00 l ABD PAIN 00:00: Rafael n 00 Active 07/06/2020 [facility] Dyspnea on Dyspnea on Disease Active U nivers exertion exertion 06-21 ity of 00:00: [place] 00 Medical Branch Dyspnea Dyspnea Disease Active Univers 913 ity of 00:00: [place] 00 Medical Branch WEAKNESS Diagnosis Active 2020-08-04 [facility] AND 05-21 11:45:00 l SWELLING WEAKNESS 00:00: Herm hannah AND 00 SWELLING Active 05/21/2020 [facility] Colon Colon Disease Active Overview: Univer s cancer cancer 8-05 Formattin ity of screening screening 00:00: [place] of this [place] 00 note Medical might be Branch different from the original. Added automatic ally from request for surgery [id number] ESRD (end ESRD (end Disease Active Uni vers stage stage 6-18 ity of renal renal 00:00: [place] disease) disease) 00 Medica l Branch GIB [...] Added automatic ally from request for surgery [id number] NAUSEA/VOM Diagnosis Active 2020-03-23 Memoria ITING 15 01:05:00 l 00:00: [place] NAUSEA/VOM 00 ITING Active 03/23/2020 [facility] Obesity Obesity Disease Active Univers (BMI (BMI 5-27 ity of 30-39.9) 30-39.9) 00:00: [place] 00 Medical Branch FEVER Diagnosis Active 2020-02-26 Mem oria 4-27 11:06:00 l FEVER 00:00: [place] 00 Active 02/03/2020 [facility] Gallbladde Gallbladde Disease Active Overview : Univers r polyp r polyp 2-06 Formattin ity o f 00:00: g of this 00 note Medical might be Branch different from the original. Added automatic ally from request for surgery [id number] AMS, Diagnosis Active 2019-10-31 Mem oria HYPONATREM - 11:04:00 l IA AMS, 00:00: [place] HYPONATREM 00 IA Active 0 [facility] NUMBNESS Diagnosis Active 2019-10-28 M emoria 10-28 20:30:00 l NUMBNESS 00:00: Rafael n 00 Active 10/28/2019 [facility] AMS Diagnosis Active 2018-102019-09-23 Mem oria 10-14 21:56:00 l AMS 10:52: [place] 00 Active 08/14/2019 [facility] Marlo PNA Diagnosis Active 2019-04-05 Mem oria 04-05 20:15:00 l PNA 00:00: [place] 00 Active 04/05/2019 [facility] Marlo DIZZINES, Diagnosis Active 2019-04-15 Memoria PNEUMONIA, 04-05 21:55:00 l END STAGE 00:00: Marlo RENAL DIS DIZZINES, 00 PNEUMONIA, END STAGE RENAL DIS Active 04/05/2019 [facility] ESRD Diagnosis Active 2017-102018-12-14 Mem oria NEEDING 0- 09:50:00 l DIALYSIS, ESRD 00:00: Marlo ACUTE NEEDING 00 PULMONARY DIALYSIS, E ACUTE PULMONARY E Active 07/21/[address] Diagnosis Active 2017-102018-07-21 Mem oria REFERRAL 0-13 21:30:[address] 00:00: [place] REFERRAL 00 Active 07/21/2018 eVnu Sellers DRVera Diagnosis Active 2017-102018-07-20 Mem oria REFFERAL 0 20:08:00 l 00:00: Marlo REFFERAL 00 Active 07/20/2018 [facility] Marlo RENAL/DO Diagnosis Active 2018-07-31 M emoria NOT USE 05-23 12:39:00 l FOR RENAL/DO 06:00: Rafael n CHARGES NOT USE 00 F/C NOTES FOR O CHARGES F/C NOTES O Active 05/23/2018 [facility] NEW Diagnosis Active 2018-05-23 Mem oria EVALUATION 05-09 10:28:00 l NEW 00:00: [place] EVALUATION 00 Active 05/09/2018 [facility] HYPERTENSI Diagnosis Active 2018-04-16 Memoria VE 04-14 13:14:00 l URGENCY, 08:00: Marlo CHEST PAIN HYPERTENSI 00 VE URGENCY, CHEST PAIN Active 04/14/2018 [facility] Marlo CHEST PAIN Diagnosis Active 2018-04-15 Memoria 04-14 01:42:00 l CHEST 08:00: Marlo PAIN 00 Active 04/14/2018 [facility] [place] ACUTE Diagnosis Active 2018-03-19 Mem oria DYSPNEA 03-16 13:39:00 l ACUTE 00:00: [place] DYSPNEA 00 Active 03/16/2018 [facility] WEAKNESS Diagnosis Active 2018-03-17 M emoria 03-16 05:41:00 l WEAKNESS 00:00: Rafael n 00 Active 03/16/2018 [facility] ESRD (end ESRD (end Disease Active Uni vers stage stage 4-28 ity of renal renal 00:00: [place] disease) disease) 00 Medica l on on Branch dialysis dialysis IN NEED OF Diagnosis Active 2018-01-22 Memoria DIALYSIS 01-22 18:51:00 l IN NEED 00:00: Marlo OF 00 DIALYSIS Active 01/22/2018 [facility] [place] SOB Diagnosis Active 2017-12-15 Mem oria 12-15 07:37:00 l SOB 00:00: [place] 00 Active 12/15/2017 [facility] Marlo ACUTE Diagnosis Active 2017-12-15 Mem oria RENAL 3-09 10:05:00 l FAILURE, ACUTE 00:00: [place] FLUID RENAL 00 OVERLOAD, FAILURE, CHF FLUID OVERLOAD, CHF Active 12/15/2017 [facility] DM DM Disease Active Univers (diabetes (diabetes ity of mellitus) mellitus) [facility] HTN HTN Disease Active Univers (hypertens (hypertens it y of ion) ion) [facility] DIZZINESS Diagnosis Active 2019-04-15 Memoria AND 21:55:00 l GIDDINESS [place] DIZZINESS AND GIDDINESS Active [facility] DYSPNEA, Diagnosis Active 2018-03-19 M emoria UNSPECIFIE 13:39:00 l D DYSPNEA, Rafael n UNSPECIFIE D Active [facility] ACUTE Diagnosis Active 2017-12-15 Mem oria KIDNEY 10:05:00 l FAILURE, ACUTE [place] UNSPECIFIE KIDNEY D FAILURE, UNSPECIFIE D Active [facility] HEART Diagnosis Active 2017-12-15 Mem oria FAILURE, 10:05:00 l UNSPECIFIE HEART Mercedez nn D FAILURE, UNSPECIFIE D Active [facility] ACUTE Diagnosis Active 2018-12-14 Mem oria PULMONARY 09:50:00 l EDEMA ACUTE Marlo PULMONARY EDEMA Active [facility] End stage Problem 2020-08-14 Me moria renal 23:33:32 l disease End [place] stage renal disease 08/14/2020 [facility] Type 2 Problem 2019-02-10 Memor ia diabetes 12:48:45 l mellitus Type 2 Rafael n with diabetes diabetic mellitus chronic with kidney diabetic disease chronic kidney disease 02/10/2019 [facility] Hypertensi Problem 2019-02-10 M emoria ve chronic 12:48:45 l kidney [place] disease Hypertensi with stage ve chronic 5 chronic kidney kidney disease disease or with stage end stage 5 chronic renal kidney disease disease or end stage renal disease 02/10/2019 [facility] Dependence Problem 2019-02-10 M emoria on renal 12:48:45 l dialysis Marlo Dependence on renal dialysis 02/10/2019 [facility] Anxiety [...] 14:42:13 l (current) Other Rafael n drug prison therapy (current) drug therapy 02/06/2019 [facility] Pericardia Problem 2019-02-10 M emoria l effusion 12:48:45 l (noninflam Rafael n matory) Pericardia l effusion (noninflam matory) 02/10/2019 [facility] Nausea [...] Memor ia pulmonary 12:48:45 l edema Acute [place] pulmonary edema 02/10/2019 [facility] Acute Problem 2019-02-10 Memor ia kidney 12:48:45 l failure, Acute [place] unspecifie kidney d failure, unspecifie d 02/10/2019 [...] delivered liveborn vaginally infant, delivered vaginally 08/10/2020 [facility] Hypocalcem Problem 2018-03-28 M emoria ia 12:58:31 l Marlo Hypocalcem ia 03/28/2018 [facility] Secondary Problem 2018-03-28 Me moria hyperparat 12:58:31 l hyroidism [place] of renal Secondary origin hyperparat hyroidism of [...] 2018-03-28 emoria rosis of 12:58:31 l renal [place] artery Atheroscle rosis of renal artery 03/28/2018 [facility] Obstructiv Problem 2018-03-28 M emoria e sleep 12:58:31 l apnea Marlo (adult) Obstructiv (pediatric e sleep ) apnea (adult) (pediatric ) 03/28/2018 [facility] Anxiety Problem Resolve 2020-08-14 Mem oria (finding) d 23:33:32 l Anxiety Marlo (finding) Resolved Problem 08/14/2020 [facility] Sleep Problem Resolve 2020-08-14 Kojo lynn apnea d 23:33:32 l (finding) Sleep Rafael n apnea (finding) Resolved Problem 08/14/2020 [facility] Pericardia Problem Active 2020-08-14 M emoria l effusion 23:33:32 l (disorder) Rafael n Pericardia l effusion (disorder) Active Problem 08/14/2020 [facility] Simple Problem Active 2020-08-14 Memor ia obesity 23:33:32 l (disorder) Simple Herm hannah obesity (disorder) Active Problem 08/14/2020 [facility] ALTERED Diagnosis Active 2019-10-31 Me moria MENTAL 11:04:00 l STATUS, ALTERED Rafael n UNSPECIFIE MENTAL D STATUS, UNSPECIFIE D Active [facility] PERITONITI Diagnosis Active 2020-07-09 Memoria S, 16:32:00 l UNSPECIFIE Rafael n D PERITONITI S, UNSPECIFIE D Active [facility] HYPO-OSMOL Diagnosis Active 2019-10-31 Memoria ALITY AND 11:04:00 l HYPONATREM Rafael n IA HYPO-OSMOL ALITY AND HYPONATREM IA Active [facility] TYPE 2 Diagnosis Active 2020-07-09 Mem oria DIABETES 16:32:00 l MELLITUS TYPE 2 Rafael n WITHOUT DIABETES COMPLIC MELLITUS WITHOUT COMPLIC Active [facility] END STAGE Diagnosis Active 2020-08-12 Memoria RENAL 08:39:00 l DISEASE END [place] STAGE RENAL DISEASE Active [facility] FLUID Diagnosis Active 2020-08-12 Mem oria OVERLOAD, 08:39:00 l UNSPECIFIE FLUID Mercedez nn D OVERLOAD, UNSPECIFIE D Active [facility] SINGLE Diagnosis Active 2020-08-09 Mem oria LIVEBORN 07:58:00 l INFANT, SINGLE Marlo DELIVERED LIVEBORN VAGINA , DELIVERED VAGINA Active [facility] PNEUMONIA, Diagnosis Active 2019-04-15 Memoria UNSPECIFIE 21:55:00 l D ORGANISM Rafael n PNEUMONIA, UNSPECIFIE D ORGANISM Active [facility] History of Past Illness Condition Condition Condition Status Onset Resolution Last Treating Co mments Source Name Details Category Date Date Treatment Clinician Date Localized Problem 2019-102020-07-26 2020-07-26 Memoria edema 0-16 21:30:35 21:30:35 l 17:00: Marlo Localized 00 edema 07/24/2020 07/26/2020 [facility] Hypokalemi Problem 2019-2020-07-26 2020-07-26 Memoria a 0-16 21:30:35 21:30:35 l 17:00: [place] Hypokalemi 00 a 07/24/2020 07/26/2020 [facility] Type 2 Problem 2019-2020-07-17 2020-07-17 M emoria diabetes 07-06 22:26:03 22:26:03 l mellitus Type 2 17:00: Rafael n without diabetes 00 complicati mellitus ons without complicati ons 07/06/2020 07/17/2020 [facility] Anemia, Problem 2020-05-23 2020-05-23 Memoria unspecifie 05-21 21:26:40 21:26:40 l d Anemia, 17:00: [place] unspecifie 00 d 05/21/2020 05/23/2020 [facility] Constipati Problem 2019-2020-05-23 2020-05-23 Memoria on, 05-21 21:26:40 21:26:40 l unspecifie 17:00: Rafael n d Constipati 00 on, unspecifie d 05/21/2020 05/23/2020 [facility] Pain in Problem 2020-02-05 2020-02-05 Memoria right hip 02-02 21:56:20 21:56:20 l Pain in 17:00: Marlo right hip 00 02/03/2020 02/05/2020 [facility] Fever, Problem 2020-02-05 2020-02-05 M emoria unspecifie 02-02 21:56:20 21:56:20 l d Fever, 17:00: Marlo unspecifie 00 d 02/03/2020 02/05/2020 [facility] Unspecifie Problem 2020-02-05 2020-02-05 Memoria d fall, 02-02 21:56:20 21:56:20 l initial 17:00: Marlo encounter Unspecifie 00 d fall, initial encounter 02/03/2020 02/05/2020 [facility] Other Problem 2018-2019-02-10 2019-02-10 M emoria specified 0 12:48:45 12:48:45 l complicati Other 04:09: Mercedez valladares on of specified 04 vascular complicati prosthetic on of devices, vascular implants prosthetic and devices, grafts, implants initial and encounter grafts, initial encounter 07/31/2018 02/10/2019 [facility] Hyperkalem Problem 2017-102019-02-06 2019-02-06 Memoria ia 0-12 14:42:13 14:42:13 l 05:00: Marlo Hyperkalem 00 ia 07/20/2018 02/06/2019 [facility] Unspecifie Problem 2017-102019-02-06 2019-02-06 Memoria d 0-12 14:42:13 14:42:13 l complicati 05:00: Rafael cee on of Unspecifie 00 internal d prosthetic complicati device, on of implant internal and graft, prosthetic initial device, encounter implant and graft, initial encounter 07/20/2018 02/06/2019 [facility] Hypertensi Problem 2017-2018-03-28 2018-03-28 Memoria ve heart - 12:58:31 12:58:31 l disease 03:49: Marlo with heart Hypertensi 05 failure ve heart disease with heart failure 12/28/2017 03/28/2018 [facility] Chronic Problem 2017-2018-01-25 2018-01-25 Memoria kidney 4-16 04:46:18 04:46:18 l disease, Chronic 05:00: Mercedez valladares unspecifie kidney 00 d disease, unspecifie d 01/22/2018 01/25/2018 [facility] Allergies, Adverse Reactions, Alerts Allergy Allergy Status Severity Reaction(s) Onset Inactive Treating Comm ents Source Name Type Date Date Clinician NO KNOWN Drug Active Univers ALLERGIE Class ity of S [facility] Social History Social Habit Start Date Stop Date Quantity Comments Source Tobacco use and 2020-03-23 2020-03-23 Smokeless tobacco Un iversity of exposure 00:00:00 00:00:00 non-[address] [facility] History [facility] 2020-03-23 2020-03-23 5 University o f Financial 00:00:00 00:00:00 [facility] History [facility] Food 2020-03-23 2020-03-23 1 Univers ity of Worry 00:00:00 00:00:[address] [facility] History [facility] Food 2020-03-23 2020-03-23 1 Univers ity of Scarcity 00:00:00 00:00:00 [place] [facility] History SDOH 2020-03-23 2020-03-23 2 University o f Transport Med 00:00:00 00:00:00 [place] [facility] al Branch History [facility] 2020-03-23 2020-03-23 2 University o f Transport Non-Med 00:00:00 00:00:00 [place] M edical Branch Social History 2017-12-15 2017-12-15 [facility] devante 18:14:42 18:14:42 Sex [birth year] Universit y of 00:00:00 00:00:00 [place] [facility] [place] Smoking Status Start Date Stop Date Source Never smoked tobacco [facility] Medications Ordered Filled Start Stop Current Ordering [...] [place] c-folic 32 daily. Medical acid Branch (TMI-CONOR) 0.8 mg tablet zolpidem 10 Yes 10mg [...] acid Branch (TIM-CONOR) 0.8 mg tablet zolpidem Yes 10mg Take 10 mg Univers mg [...] acid Branch (TIM-CONOR) 0.8 mg tablet zolpidem Yes 10mg Take 10 mg Univers mg [...] 2 ity of mg tablet 10:42: (two) [place] 32 times Medical daily as Branch needed. fentaNYL 2019-10 No Route: IV, Mem oria (ANES) 10-12 Drug form: l 18:10: INJ, ONCE, Stop date: 08/12/20 12:10:00 PLATEN BUILDER UP lidocaine 2019-10 No Route: IV, Me moria (ANES) 10-12 Drug form: l 18:10: INJ, ONCE, Stop date: 08/12/20 12:10:00 PLATEN BUILDER UP propofol 2019-10 No Route: IV, Mem oria (ANES) 10-12 Drug form: l 18:10: INJ, ONCE, Stop date: 08/12/20 12:10:00 PLATEN BUILDER UP ondansetron 2019-10 No Route: IV, Memoria (ANES) 10-12 Drug form: l 18:10: INJ, ONCE, Stop date: 08/12/20 12:10:00 PLATEN BUILDER UP metoclopram 2019-10 No Route: IV, Memoria jeanna (ANES) 10-12 Drug form: l 18:10: INJ, ONCE, Stop date: 08/12/20 12:10:00 PLATEN BUILDER UP ceFAZolin 2019-10 No Route: IV, Me moria (ANES) 10-12 Drug form: l 17:50: INJ, ONCE, Stop date: 08/12/20 11:50:00 PLATEN BUILDER UP Sodium 2019-10 No Route: IV, Memor ia Chloride 10-12 Total l 0.9% IV 17:14: Volume: [place] (ANES) 500 00 500, Start mL date: 08/12/20 11:14:00 PLATEN BUILDER UP, Stop date: 08/12/20 12:14:00 PLATEN BUILDER UP Sodium 2019-10 No 500 mL, Memoria Chloride 10-12 Rate: 75 l 0.9% IV 500 16:52: ml/hr, Herm hannah mL 00 Infuse over: 6.7 hr, Route: IV, Dosing Weight 111.182 kg, Total Volume: 500, Start date: 08/12/20 10:52:00 PLATEN BUILDER UP, Duration: 1 doses or times, Stop date: 08/12/20 17:33:00 PLATEN BUILDER UP, 2.32, m2, 0 Potassium 2019-10 No Notes: Memori a Chloride 1-04 (Same as: l 13:46: K-Dur 20) "Do Not Crush" Give with food and full glass of water For patients unable to swallow tablet, dissolve in one half glass of water. Allow about 2 minutes for the tablets to disintegra te. Stir before giving to prepare slurry and administer . Please exclude Patient s with feeding tube less than 14 Cook Islander (Dobhoff, J-tube etc) and pediatric and patients. Hydralazine 2019-10 No 10 mg, Kojo lynn 10-11 Route: l 21:11: IVP, Q4H, Dosing Weight 111.182, kg, PRN Hypertensi on, Start date: 08/11/20 15:11:00 PLATEN BUILDER UP, Duration: 30 day, Stop date: 09/10/20 15:10:00 PLATEN BUILDER UP Potassium 2019-10 No Notes: Memori a Chloride [...] s with feeding tube less than 14 [place]er (Dobhoff, J-tube etc) and pediatric and patients. epoetin 2019-10 No Notes: Memoria franca - (Same as: l 15:00: Procrit) epoetin franca 2000 unit/1 ml VL Non-formul heydi For dialysis use only (Epogen) WASTE: F/P - Red; E -Red MEDICATION WASTE Product Size: 2000 mg Product Wasted: ___ mg Ambien 2019-10 No Notes: Memoria 1- (Same As: l 04:24: Ambien) [place] Melatonin 3 2019-10 No Notes: Kojo lynn MG Extended 10-10 (Same as: l Release 03:57: Melatonin) Herm hannah Tablet 00 Ambien 2019-10 No PO, Memoria - Bedtime, 0 l 02:55: Refill(s) Zolpidem 2019-10 Yes 10 mg = 1 Kojo lynn tartrate 10 -02 tab, PO, l MG Oral 02:55: Bedtime, Rafael n Tablet 00 PRN for [Ambien] sleep, 0 Refill(s) heparin 2019-10 No 10,000 Memoria 10-09 unit, 10 l 15:10: mL, Route: [place] 00 DIALYSIS, Drug form: INJ, ONCALL, Dosing Weight 111.182, kg, PRN Dialysis, Priority: STAT, Start date: 08/09/20 9:10:00 PLATEN BUILDER UP, Duration: 1 doses or times, Stop date: Limited # of times, 0 tramadol 2019-10 No Notes: Not Mem oria hydrochlori 10-09 to exceed l de 50 MG 05:16: 400mg/day. Her meeks Oral Tablet 00 (Same As: Ultram) epoetin 2019-10 No Notes: Memoria franca 0-31 (Same as: l 14:30: Procrit) [place] 00 epoetin franca 94759 unit/1 ml VL. Non-formul heydi For dialysis use only. (Procrit) WASTE: F/P - Red; E -Red MEDICATION WASTE Product Size: 76923 unit Product Wasted: ___ unit Sodium 2019-10 No 250 mL, Memoria Chloride 0 Rate: To l 0.9% 14:13: prime line Marlo (titrate) 00 and flush 250 mL remaining blood products., Dosing Weight 111.182, kg, Route: IV, Total Volume: 250, Priority: Routine, Start Date: 08/08/20 9:13:00 CDT, Duration: 1 day, Stop date: 08/09/20 9:12:00 PLATEN BUILDER UP, Replace Every: 24 hr, 0 Amlodipine 2019-10 No 1 cap, Memor ia 10 MG / 0-31 Route: PO, l Benazepril 14:00: Drug Form: H ermann hydrochlori 00 CAP, de 20 MG Dosing Oral Weight Capsule 111.182, kg, Daily, Start date: 08/08/20 9:00:00 CDT, Duration: 30 day, Stop date: 09/06/20 9:00:00 PLATEN BUILDER UP carvedilol 2019-10 No 12.5 mg, Mem oria 0-31 Route: PO, l 14:00: Drug form: [place] 00 TAB, Q12H, Dosing Weight 111.182, kg, Start date: 08/08/20 9:00:00 CDT, Duration: 30 day, Stop date: 09/06/20 21:00:00 PLATEN BUILDER UP amLODIPine 2019-10 No Notes: Memor ia 0-31 (Same as: l 14:00: Norvasc) lisinopril 2019-10 No Notes: Memor ia 0-31 (Same as: l 14:00: Prinivil, Zestril) Dilaudid 2019-10 No Notes: Memoria 0-31 Same as: l 13:46: Dilaudid Epogen 2019-10 No 11,000 Memoria 0-31 unit, l 13:01: Route: [place] 00 SUB-Q, Drug form: INJ, Q-M-W-F, Dosing Weight 111.182, kg, Priority: NOW, Start date: 08/08/20 8:01:00 CDT, Duration: 30 day, Stop date: 09/04/20 9:00:00 PLATEN BUILDER UP Morphine 2019-10 No Notes: Memoria 0-31 (Same l 10:27: as:MORPhin [place] 00 e Sulfate) Morphine 2019-10 No Notes: Memoria 0-31 (Same l 01:44: as:MORPhin Marlo 00 e Sulfate) normal 2019-10 No 2,000 mL, Memori a saline 0.9% 0-30 Rate: 100 l IV 2,000 mL 22:22: ml/hr, Infuse over: 20 hr, Route: IV, Dosing Weight 111.182 kg, Total Volume: 2,000, Start date: 08/07/20 17:22:00 CDT, Duration: 30 day, Stop date: 09/06/20 17:21:00 PLATEN BUILDER UP, 2.32, m2, 0 Lasix 2019-10 No 80 mg, Memoria 0-30 Route: l 13:00: IVP, Drug form: INJ, BID Diuretic, Dosing Weight 117.002, kg, Start date: 08/07/20 8:00:00 CDT, Duration: 30 day, Stop date: 09/05/20 16:00:00 PLATEN BUILDER UP Magnesium 2019-10 No Notes: Memori a Sulfate 0-30 WASTE: F/P l 12:58: - Sink; E Marlo - Municipal Trash Bin Potassium 2019-10 No Notes: Memori a Chloride 0-30 (Same as: l 12:58: K-Dur ) "Do Not Crush" Give with food and full glass of water For patients unable to swallow tablet, dissolve in one half glass of water. Allow about 2 minutes for the tablets to disintegra te. Stir before giving to prepare slurry and administer . Please exclude Patient s with feeding tube less than 14 [place]er (Dobhoff, J-tube etc) and pediatric and patients. Potassium 2019-10 No Notes: Memori a Chloride 0-30 Infuse at l 11:00: a rate of [place] 10 mEq/hr. (Same as: KCL) normal 2019-10 [...] Duration: 30 day, Stop date: 09/06/20 5:36:00 PLATEN BUILDER UP, 2.32, m2 Hydralazine 2019-10 No Notes: Kojo [...] lynn 0-30 (Same as: l 01:31: Zofran) MEDICATION WASTE Product Size: 4 mg Product Wasted: ___ mg Acetaminoph 2019-10 No Notes: Do M emoria en 325 MG / 0-30 not exceed l Hydrocodone 01:31: 4gm/day of [place] Bitartrate 00 acetaminop 10 MG Oral hen. Tablet (Same as: [[place] 10/325] 325/10) Acetaminoph 2019-10 No Notes: Kojo lynn en 325 MG / 0-30 (Same as: l Hydrocodone 01:31: [place] nn Bitartrate 00 325/5) Do 5 MG Oral not exceed Tablet 4gm/day of [[place] acetaminop 5/325] hen. Dilaudid 2019-10 No 1 [...] Duration: 30 day, Stop date: 09/05/20 19:08:00 PLATEN BUILDER UP, 0 Glucagon 2019-10 No 1 mg, Memoria 0-30 Route: IM, l 01:09: Drug form: [place] 00 PDR/INJ, PRN, Dosing Weight 117.002, kg, PRN Blood Glucose Results, Start date: 08/06/20 20:09:00 CDT, Duration: 30 day, Stop date: 09/05/20 19:08:00 PLATEN BUILDER UP, 0 Magnesium 2019-10 No Notes: Memori a [...] s with feeding tube less than 14 [place] (Dobhoff, J-tube etc) and pediatric and patients. Dilaudid 2019-10 No 1 mg, Memoria 0-29 Route: l 23:27: IVP, ONCE, Dosing Weight 117.002, kg, Priority: STAT, Start date: 08/06/20 18:27:00 CDT, Stop date: 08/06/20 18:27:00 CDT Potassium 2019-10 No 40 mEq, Memor ia Chloride 029 Route: PO, l 22:56: Drug form: ERTAB, ONCE, Dosing Weight 117.002, kg, Priority: STAT, Start date: 08/06/20 17:56:00 CDT, Stop date: 08/06/20 17:56:00 CDT Morphine 2019-10 No 4 mg, Memoria 029 Route: l 22:44: IVP, ONCE, Dosing Weight 117.002, kg, Priority: STAT, Start date: 08/06/20 17:44:00 CDT, Stop date: 08/06/20 17:44:00 CDT Zofran 2019-10 No 4 mg, Memoria 029 Route: l 22:44: IVP, Drug form: INJ, [...] 00 Refill(s), de 20 MG Pharmacy: [facility] [place], 170.18, cm, 07/06/20 5:14:00 CDT, Height, 105, kg, 07/06/20 5:14:00 CDT, Weight cefdinir 2019-10 Yes 300 mg = 1 Mem oria 300 MG Oral 0-07 cap, PO, l Capsule 17:35: Daily, X 7 Herm hannah 00 day, # 7 cap, 0 Refill(s), Pharmacy: [facility], 170.18, cm, 07/06/20 5:14:00 CDT, Height, 105, kg, 07/06/20 5:14:00 CDT, Weight Metronidazo 2019-10 Yes 500 mg = 1 Memoria le 500 MG 0-07 tab, PO, l Oral Tablet 17:35: Q8H, X 7 He rmann [Flagyl] 00 day, # 21 tab, 0 Refill(s), Pharmacy: [facility], 170.18, cm, 07/06/20 5:14:00 CDT, Height, 105, kg, 07/06/20 5:14:00 CDT, Weight Protonix 2019-10 No Notes: Memoria 0-07 Tablet l 12:30: should not [place] 00 be chewed or crushed. (Same as: [...] s with feeding tube less than 14 [place] (Dobhoff, J-tube etc) and pediatric and patients. Clonidine 2019-10 No Notes: Memori a 0-06 (Same As: l 22:46: Catapres) [place] 00 Sucralfate 2019-10 No Notes: Symone Boggs emoria 100 MG/ML 0-06 interfere l Oral 18:00: w/enteral Marlo Suspension 00 feeds - [Carafate] Take 1 hr before or 2 hr after antacids, dairy pdt, meals & minerals - On empty stomach. sevelamer 2019-10 No Notes: Memori a 0-06 Same as: l 17:00: Renvela [place] 00 Potassium 2019-10 No Notes: Memori a Chloride 0-06 (Same as: l 13:00: K-Dur 20) Dalton 00 "Do Not Crush" Give with food and full glass of water For patients unable to swallow tablet, dissolve in one half glass of water. Allow about 2 minutes for the tablets to disintegra te. Stir before giving to prepare slurry and administer . Please exclude Patient s with feeding tube less than 14 [place] (Dobhoff, J-tube etc) and pediatric and patients. Ceftriaxone 2019-10 No Notes: Kojo lynn 0-05 (Same As: l 23:00: Rocephin). Marlo 00 Use with 100 mL NS and infuse over 30 min MEDICATION WASTE Product Size: 1000 mg Product Wasted: ___ mg Bentyl 2019-10 No Notes: Memoria 0-05 (Same as: l 22:00: Bentyl) Marlo Potassium 2019-10 No Notes: Memori a Chloride [...] s with feeding tube less than 14 [place] (Dobhoff, J-tube etc) and pediatric and patients. [...] s with feeding tube less than 14 [place] (Dobhoff, J-tube etc) and pediatric and patients. Flagyl 2019-10 No Notes: Memoria 0-03 (Same as: l 23:00: Flagyl) [place] 00 Avoid alcohol. Potassium 2019-10 No Notes: Memori a Chloride 0-03 (Same as: l 16:13: K-Dur 20) [place] 00 "Do Not Crush" Give with food and full glass of water For patients unable to swallow tablet, dissolve in one half glass of water. Allow about 2 minutes for the tablets to disintegra te. Stir before giving to prepare slurry and administer . Please exclude Patient s with feeding tube less than 14 [place] (Dobhoff, J-tube etc) and pediatric and patients. [...] 0-01 Route: IM, l 19:27: Drug form: [place] 00 PDR/INJ, PRN, Dosing Weight 105, kg, PRN Blood Glucose Results, Start date: 07/09/20 14:27:00 CDT, Duration: 30 day, Stop date: 08/08/20 14:26:00 CDT, 0 Insulin 2019-10 No Notes: Memoria Lispro 0-01 (Same as: l 19:27: Humalog) 00 Roll in palms of hands gently; Do not shake vigorously . WASTE: F/P - Black; E - Municipal Trash Bin Stable for 28 days at room temperatur e. Expires in days from ____Date Potassium 2019-10 No Notes: Memori a Chloride 0-01 (Same as: l 15:51: K-Dur 20) [place] 00 "Do Not Crush" Give with food and full glass of water For patients unable to swallow tablet, dissolve in one half glass of water. Allow about 2 minutes for the tablets to disintegra te. Stir before giving to prepare slurry and administer . Please exclude Patient s with feeding tube less than 14 [place] (Dobhoff, J-tube etc) and pediatric and patients. vancomycin No Notes: Memor ia + Sodium 9-30 TIME l Chloride 21:00: CRITICAL [place] nn 0.9% IV 100 00 MEDICATION mL (Same As: Vancocin) For adult patients only: Round to nearest 250 mg per Medical Staff approval Potassium No Notes: Memori a Chloride 9-30 (Same as: l 13:16: K-Dur 20) [place] 00 "Do Not Crush" Give with food and full glass of water For patients unable to swallow tablet, dissolve in one half glass of water. Allow about 2 minutes for the tablets to disintegra te. Stir before giving to prepare slurry and administer . Please exclude Patient s with feeding tube less than 14 [place] (Dobhoff, J-tube etc) and pediatric and patients. Tylenol No Notes: Do Memor ia 07-07 not exceed l 15:39: 4 gm/day. Dalton 00 (Same as: Tylenol) Roxicodone No Notes: [...] s with feeding tube less than 14 [place] (Dobhoff, J-tube etc) and pediatric and patients. Epogen No Notes: Memoria 07-07 Same as: l 13:08: Retacrit) epoetin franca-epbx 38862 unit/1 ml VL. WASTE: F/P - Red; E Red MEDICATION WASTE Product Size: 16378 unit Product Wasted: ___ unit potassium No Notes: Memori a chloride 20 07-07 (Same as: l mEq oral 10:45: K-Dur 20) Herm hannah , 00 "Do Not extended Crush" release Give with (KCL) food and full glass of water For patients unable to swallow tablet, dissolve in one half glass of water. Allow about 2 minutes for the tablets to disintegra te. Stir before giving to prepare slurry and administer . Please exclude Patient s with feeding tube less than 14 [place] (Dobhoff, J-tube etc) and pediatric and patients. [...] day, Stop date: 08/05/20 9:00:00 CDT calcium 0 No Notes: Memoria acetate 667 07-06 Same as l MG Oral 18:00: Phoslo Gel Herm hannah Capsule 00 Cap Hydroxyzine 0 No Notes: Kojo lynn Hydrochlori 07-06 (Same as: l de 25 MG 18:00: Atarax) Rafael n Oral Tablet 00 Avoid alcohol. Vancomycin No 2001 mg: Me moria 07-06 infuse l 18:00: over 2.5 [place] 00 hours For adult patients only: Round to nearest 250 mg per Medical Staff approval MEDICATION WASTE Product Size: 1000 mg Product Wasted: ___ mg acetaminoph No Notes: Do Ambrose emoria en-codeine 07-06 not exceed l #3 17:42: 4gm/day of acetaminop hen. (Same as: Tylenol with Codeine # 3) Diazepam No Notes: Memoria 07-06 (Same as: l 17:42: Valium) potassium 0 No Notes: Memori a chloride 07-06 (Same as: l 16:00: Potassium Chloride) Hydromorpho No Notes: Kojo lynn ne 07-06 Same as: l 13:57: Dilaudid Acetaminoph No Notes: Do M emoria en 325 MG / 07-06 not exceed l Hydrocodone 13:57: 4gm/day of [place] Bitartrate acetaminop 10 MG Oral hen. Tablet (Same as: [[place] 10/325] 325/10) Potassium No 60 mEq, Memor ia Chloride 07-06 Route: PO, l 1.33 MEQ/ML 13:45: ONCE, [place] Dosing Solution Weight 105, kg, Start date: 07/06/20 8:45:00 CDT, Stop date: 07/06/20 8:45:00 CDT Hydromorpho No 1 mg, Memor ia ne 07-06 Route: l 12:40: IVP, ONCE, Dosing Weight 105, kg, Priority: STAT, Start date: 07/06/20 7:40:00 CDT, Stop date: 07/06/20 7:40:00 CDT Morphine 0 No 6 mg, Memoria 07-06 Route: l 12:39: IVP, ONCE, Dosing Weight 105, kg, Priority: STAT, Start date: 07/06/20 7:39:00 CDT, Stop date: 07/06/20 7:39:00 CDT cefepime No Notes: Memoria 07-06 (Same As: l [...] l 10:32: as:MORPhin Marlo 00 e Sulfate) furosemide 2020-0 Yes [id number] 80mg Take 1 U nivers (LASIX) 80 9-15 tablet by ity of mg tablet 00:00: mouth [place] 00 every Medical morning Branch and evening. tamsulosin 2020-0 Yes [id number] .4mg Take 1 U nivers 0.4 mg 24 9-15 capsule by ity of hr capsule 00:00: mouth [place] 00 daily. Medical Branch furosemide 2020-0 Yes [id number] 80mg Take 1 U nivers (LASIX) 80 9-15 tablet by ity of mg tablet 00:00: mouth [place] 00 every Medical morning Branch and evening. tamsulosin 2020-0 Yes [id number] .4mg Take 1 U nivers 0.4 mg 24 9-15 capsule by ity of hr capsule 00:00: mouth [place] 00 daily. Medical Branch furosemide 2020-0 Yes [id number] 80mg Take 1 U nivers (LASIX) 80 9-15 tablet by ity of mg tablet 00:00: mouth [place] 00 every Medical morning Branch and evening. tamsulosin 2020-0 Yes [id number] .4mg Take 1 U nivers 0.4 mg 24 9-15 capsule by ity of hr capsule 00:00: mouth [place] 00 daily. Medical Branch furosemide 2020-0 Yes [id number] 80mg Take 1 U nivers (LASIX) 80 9-15 tablet by ity of mg tablet 00:00: mouth [place] 00 every Medical morning Branch and evening. tamsulosin 2020-0 Yes [id number] .4mg Take 1 U nivers 0.4 mg 24 9-15 capsule by ity of hr capsule 00:00: mouth [place] 00 daily. Medical Branch furosemide 2020-0 Yes [id number] 80mg Take 1 U nivers (LASIX) 80 9-15 tablet by ity of mg tablet 00:00: mouth [place] 00 every Medical morning Branch and evening. tamsulosin 2020-0 Yes [id number] .4mg Take 1 U nivers 0.4 mg 24 9-15 capsule by ity of hr capsule 00:00: mouth [place] 00 daily. Medical Branch furosemide 2020-0 Yes [id number] 80mg Take 1 U nivers (LASIX) 80 9-15 tablet by ity of mg tablet 00:00: mouth [place] 00 every Medical morning Branch and evening. tamsulosin 2020-0 Yes [id number] .4mg Take 1 U nivers 0.4 mg 24 9-15 capsule by ity of hr capsule 00:00: mouth [place] 00 daily. Medical Branch Acetaminoph 2020-0 No Notes: Do M emoria [...] 00 water or juice. (Same as: Miralax) calcium 2020-0 Yes [id number] 1334mg Take 2 Un seun acetate 667 6-22 capsules ity of mg capsule 00:00: by mouth [place] 00 (three) Medical times Branch daily with meals. calcium 2020-0 Yes [id number] 1334mg Take 2 Un seun acetate 667 6-22 capsules ity of mg capsule 00:00: by mouth 3 [place] 00 (three) Medical times Branch daily with meals. calcium 2020-0 Yes [id number] 1334mg Take 2 Un seun acetate 667 6-22 capsules ity of mg capsule 00:00: by mouth 3 [place] 00 (three) Medical times Branch daily with meals. calcium 2020-0 Yes [id number] 1334mg Take 2 Un seun acetate 667 6-22 capsules ity of mg capsule 00:00: by mouth 3 [place] 00 (three) Medical times Branch daily with meals. calcium 2020-0 Yes [id number] 1334mg Take 2 Un seun acetate 667 6-22 capsules ity of mg capsule 00:00: by mouth 3 [place] 00 (three) Medical times Branch daily with meals. calcium 2020-0 Yes [id number] 1334mg Take 2 Un seun acetate 667 6-22 capsules ity of mg capsule 00:00: by mouth 3 [place] 00 (three) Medical times Branch daily with meals. Morphine 2020-0 No 4 mg, Memoria 6-15 Route: l 13:48: IVP, ONCE, [place] 00 Dosing Weight 104, kg, Priority: STAT, [...] TAB, 5 MG Oral Dosing Tablet Weight [[place] 104, kg, 5/325] ONCE, STAT, Start date: 03/23/20 5:53:00 CDT, Stop date: 03/23/20 5:53:00 CDT Acetaminoph 2020-0 No Notes: Do M emoria en 325 MG / 6-15 not exceed l Hydrocodone 09:02: 4gm/day of [place] Bitartrate 00 acetaminop 10 MG Oral hen. Tablet (Same as: [[place] 10/325] 325/10) Sodium 2020-0 No 250 mL, Memoria Chloride 6-15 Rate: To l 0.9% 06:23: prime line [place] (titrate) 00 and flush 250 mL remaining [...] Memoria 02-02 Same as: l 22:39: Dilaudid Hydralazine No 50 mg, 1 Me moria [...] MG Oral 20 tab, 0 Tablet Refill(s), [[place] [facility]: ] [facility] [place] vancomycin No 2000 mg: Me moria 11-04 infuse l 19:00: over 2.5 [place] 00 hours For adult patients only: Round to nearest 250 mg per Medical Staff approval MEDICATION WASTE Product Size: 1000 mg Product Wasted: ___ mg Amlodipine No 1 cap, Memor ia 10 MG / 11-04 Route: PO, l Benazepril 19:00: Drug Form: H ermann hydrochlori 00 CAP, de 20 MG Dosing Oral Weight Capsule 99.091, kg, TID, Start date: 11/04/19 13:00:00 PLATEN BUILDER UP, Duration: 30 day, Stop date: 12/04/19 9:00:00 PLATEN BUILDER UP amLODIPine No Notes: Memor ia 11-04 (Same as: l 19:00: Norvas) lisinopril No Notes: Memor ia 11-04 (Same as: l 19:00: Prinivil, [place] 00 Zestril) Amlodipine Yes 1 cap, PO, [...] s with feeding tube less than 14 [place] (Dobhoff, J-tube etc) and pediatric and patients. epoetin No Notes: Memoria franca 11-04 (Same as: l 15:00: Procrit) Marlo 00 epoetin franca 73833 unit/1 ml VL. For dialysis use only. (Procrit) WASTE: F/P - Red; E -Red MEDICATION WASTE Product Size: 27264 unit Product Wasted: ___ unit Lisinopril No Notes: Memor ia 11-04 (Same as: l 14:47: Prinivil, [place] 00 Zestril) Vancomycin No 2001 mg: Me moria 11-04 infuse l 14:40: over 2.5 [place] 00 hours For adult patients only: Round to nearest 250 mg per Medical Staff approval MEDICATION WASTE Product Size: 1000 mg Product Wasted: ___ mg Lasix No Notes: Memoria 11-03 (Same as: l 23:00: Lasix) [place] 00 May cause GI upset. Give with [...] s with feeding tube less than 14 [place] (Dobhoff, J-tube etc) and pediatric and patients. Epogen No Notes: Memoria - (Same as: l 15:32: Procrit) epoetin franca 62918 unit/1 ml VL. For dialysis use only. (Procrit) WASTE: F/P - Red; E -Red MEDICATION WASTE Product Size: 40891 unit Product Wasted: ___ unit Dilaudid No Notes: Memoria 1-25 Same as: l 18:03: Dilaudid heparin No 10,000 Memoria 1-25 unit, 10 l 02:00: mL, Route: [place] 00 DIALYSIS, Drug form: INJ, ONCALL, Dosing Weight 99.091, kg, Start date: 11/01/19 20:00:00 PLATEN BUILDER UP, Duration: 1 doses or times, 0 vancomycin No Notes: Memor ia + Sodium 1-24 TIME l Chloride 20:00: CRITICAL [place] nn 0.9% IV 100 00 MEDICATION mL (Same As: Vancocin) For adult patients only: Round to nearest 250 mg per Medical Staff approval potassium No Notes: Memori a chloride -24 (Same as: l 19:51: K-Dur 20) "Do Not Crush" Give with food and full glass of water For patients unable to swallow tablet, dissolve in one half glass of water. Allow about 2 minutes for the tablets to disintegra te. Stir before giving to prepare slurry and administer . Please exclude Patient s with feeding tube less than 14 [place] (Dobhoff, J-tube etc) and pediatric and patients. [...] s with feeding tube less than 14 [place] (Dobhoff, J-tube etc) and pediatric and patients. heparin 2020-0 No 10,000 Memoria 1-24 unit, 10 l 01:00: mL, Route: [place] 00 DIALYSIS, Drug form: INJ, ONCALL, Dosing Weight 99.091, kg, Start date: 10/31/19 19:00:00 PLATEN BUILDER UP, Duration: 1 doses or times, 0 Albuterol 2020-0 No Notes: Memori a 0.833 MG/ML - (Same as: l / 15:09: Duoneb) [place] Ipratropium 00 [place] 0.167 MG/ML Inhalant Solution [DuoNeb] Potassium 2020-0 [...] s with feeding tube less than 14 [place] (Dobhoff, J-tube etc) and pediatric and patients. heparin 2020-0 No 10,000 Memoria 1-23 unit, 10 l 05:00: mL, Route: [place] 00 DIALYSIS, Drug form: INJ, ONCALL, Dosing Weight 99.091, kg, Start date: 10/30/19 23:00:00 PLATEN BUILDER UP, Duration: 1 doses or times, 0 Potassium 2020-0 No Notes: Memori a Chloride -23 (Same as: l 04:05: K-Dur 20) Marlo 00 "Do Not Crush" Give with food and full glass of water For patients unable to swallow tablet, dissolve in one half glass of water. Allow about 2 minutes for the tablets to disintegra te. Stir before giving to prepare slurry and administer . Please exclude Patient s with feeding tube less than 14 [place] (Dobhoff, J-tube etc) and pediatric and patients. Tylenol 2019-0 No Notes: Do Memor ia 10-30 not exceed l 19:42: 4 gm/day. Dalton 00 (Same as: Tylenol) Roxicodone No Notes: Memor ia - (Same as: l 19:41: Roxicodone ) Acetaminoph 0 No 1 tab, Kojo lynn en 325 MG / 10-30 Route: PO, l Oxycodone 19:20: Drug Form: Jarad Schneideri 00 TAB, de 5 MG Dosing Oral Tablet Weight [Percocet 99.091, 5/325] kg, Q4H, PRN Pain Score 4-6, Start date: 10/30/19 13:20:00 PLATEN BUILDER UP, Duration: 30 day, Stop date: 11/29/19 13:19:00 PLATEN BUILDER UP vancomycin No 2000 mg: Me moria + [...] moria 10-30 infuse l 16:00: over 2.5 [place] 00 hours For adult patients only: Round to nearest 250 mg per Medical Staff approval MEDICATION WASTE Product Size: 1000 mg Product Wasted: ___ mg NIFEdipine 0 No Notes: Memor ia 90 mg oral 10-30 (Same as: l tablet, 15:00: Adalat Marlo extended 00 CC,Procard release ia XL) "Do Not Crush" "Avoid grapefruit and grapefruit juice" Tim-Conor 0 No Tim-Conor Mem oria oral tablet 10-30 oral l 15:00: tablet, 1 00 tab, Route: PO, Daily, 10/30/19 9:00:00 PLATEN BUILDER UP, Duration: 30 day, Stop date: 11/28/19 9:00:00 PLATEN BUILDER UP Nephro-Conor 2019-0 No Notes: Kojo lynn Rx 10-30 (Same as: l 15:00: Nephro-Vit Dalton 00 e Rx and Diatx) Give with food. Epoetin No Notes: Memoria Franca 10-30 (Same as: l 14:39: Procrit) Marlo 00 epoetin franca 75607 unit/1 ml VL. For dialysis use only. (Procrit) WASTE: F/P - Red; E -Red MEDICATION WASTE Product Size: 34052 unit Product Wasted: ___ unit Potassium No Notes: Memori a Chloride 10-30 (Same as: l 14:38: K-Dur 20) Dalton "Do Not Crush" Give with food and full glass of water For patients unable to swallow tablet, dissolve in one half glass of water. Allow about 2 minutes for the tablets to disintegra te. Stir before giving to prepare slurry and administer . Please exclude Patient s with feeding tube less than 14 [place] (Dobhoff, J-tube etc) and pediatric and patients. carvedilol No Notes: Memor ia 10-30 Give with l 03:00: food. Dalton 00 (Same As: Coreg) tamsulosin No Notes: Memor ia 10-30 (Same As: l 03:00: Flomax) Dalton "Do Not Crush" Lactulose No Notes: Memori a 667 MG/ML 10-30 (Same l Oral 00:36: as:Chronul Marlo Solution 00 ac) Lactulose No Notes: Memori a 10-30 Lactulose l 00:36: 300ml, Marlo Water for Irrigation 700ml - total volume = 1000ml tizanidine No Notes: Memor ia 10-29 (Same As: l 22:22: Zanaflex) [place] Hydralazine No Notes: Kojo lynn Hydrochlori 10-29 (Same as: l de 25 MG 22:00: Apresoline Her meeks Oral Tablet ) May interfere w/enteral feedings Take With Food. calcium Yes 2,001 mg = Kojo lynn acetate 667 10-29 3 cap, PO, l MG Oral 21:57: TID, 0 Marlo Capsule 00 Refill(s) Diazepam 0 No Notes: Memoria - (Same as: l 21:25: Valium) [place] 00 Hydralazine No Notes: Kojo lynn 10-29 (Same [...] s with feeding tube less than 14 [place] (Dobhoff, J-tube etc) and pediatric and patients. Magnesium No Notes: Memori a Sulfate 10-29 WASTE: F/P l 14:55: - Sink; E - [facility] Trash Bin Diazepam Yes 10 mg, PO, [...] Blood Glucose Results, Start date: 10/29/19 0:50:00 PLATEN BUILDER UP, Duration: 30 day, Stop date: 11/28/19 0:49:00 PLATEN BUILDER UP, 0 Glucagon No 1 mg, Memoria 10-29 Route: IM, l 06:50: Drug form: [place] 00 PDR/INJ, PRN, Dosing Weight 90.909, kg, PRN Blood Glucose Results, Start date: 10/29/19 0:50:00 PLATEN BUILDER UP, Duration: 30 day, Stop date: 11/28/19 0:49:00 PLATEN BUILDER UP, 0 Ondansetron No Notes: Kojo lynn 10-29 [...] l / 03:22: Duoneb) Marlo Ipratropium 00 [place] 0.167 MG/ML Inhalant Solution [DuoNeb] Albuterol No Notes: SEE Me moria 0.83 MG/ML 10-29 RT l Inhalant 03:22: DOCUMENTAT Her meeks Solution 00 ION (Same as: Proventil) carvedilol 2018-10 Yes 12.5 mg = Me moria 12.5 mg 1-12 1 tab, PO, l oral tablet 17:56: Q12H, # 60 [place] 00 tab, 0 Refill(s), Pharmacy: [facility] 2018-10 Yes 80 mg = 2 Me moria 40 MG Oral -12 tab, PO, l Tablet 17:56: TID, # 180 [place] nn 00 tab, 0 Refill(s), Pharmacy: [facility] Hydralazine 2018-10 Yes 50 mg = 2 M emoria Hydrochlori 1-12 tab, PO, l de 25 MG 17:56: Q8H, # 180 Her meeks Oral Tablet 00 tab, 0 Refill(s), Pharmacy: [facility] lisinopril 2018-10 Yes 40 mg = 1 Me moria 40 mg oral 1-12 tab, PO, l tablet 17:56: Daily, # Marlo 00 30 tab, 0 Refill(s), Pharmacy: [facility] NIFEdipine 2018-10 Yes 90 mg = 1 Me moria 90 mg oral 1-12 tab, PO, l tablet, 17:56: Daily, # Raafel n extended 00 30 tab, 0 release Refill(s), Pharmacy: [facility] carvedilol 2018-10 No Notes: Memor ia 1-12 Give with l 03:00: food. (Same As: Coreg) NIFEdipine 2018-10 No 90 mg, Memor ia 60 mg oral -11 Route: PO, l tablet, 15:00: Drug form: Herm hannah extended 00 ERTAB, release Daily, Dosing Weight 96.364, kg, Start date: 08/19/19 9:00:00 PLATEN BUILDER UP, Duration: 30 day, Stop date: 09/17/19 9:00:00 PLATEN BUILDER UP, 0 lisinopril 2018-10 No Notes: Memor ia 1-11 (Same as: l 15:00: Prinivil, [place] Zestril) carvedilol 2018-10 No Notes: Memor ia [...] ia 1-10 (Same as: l 20:11: Prinivil, Dalton Zestril) NIFEdipine 2018-10 No Notes: Memor ia 60 mg oral 1-10 (Same as: l tablet, 20:09: Adalat CC, Herm hannah extended 00 Procardia release XL) Give on empty stomach. Take 1 hour before or 2 hours after meal; "Avoid grapefruit and grapefruit juice". Do not crush heparin 2018-10 No 10,000 Memoria 1-10 unit/mL, l 15:29: Route: [place] 00 DIALYSIS, Drug form: INJ, ONCALL, Dosing Weight 96.364, kg, Priority: NOW, Start date: 08/18/19 9:29:00 PLATEN BUILDER UP, Duration: 1 doses or times, 0 heparin 2018-10 No 10,000 Memoria 1-09 unit, 10 l 19:00: mL, Route: [place] 00 DIALYSIS, Drug form: INJ, ONCALL, Dosing Weight 96.364, kg, Start date: 08/17/19 13:00:00 PLATEN BUILDER UP, Duration: 1 doses or times, 0 Sodium 2018-10 No 1,000 mL, Memori a Chloride 1-09 1,000 l 0.9% 18:06: ml/hr, Marlo (Bolus) IV 00 Infuse Over: 1 hr, Route: IV, 1,000, Drug form: INJ, PRN, Priority: STAT, Dosing Weight 96.364 kg, Start date: 08/17/19 12:06:00 PLATEN BUILDER UP, Duration: 30 day, Stop date: 09/16/19 12:05:00 PLATEN BUILDER UP, PRN Dialysis, 0 Potassium 2018-10 No Notes: [...] s with feeding tube less than 14 [place] (Dobhoff, J-tube etc) and pediatric and patients. Seroquel 2018-10 No Notes: Memoria 1-08 (Same as: l 02:36: SEROquel) [place] 00 Ativan 2018-10 No Notes: Memoria 1-07 (Same as: l 21:45: Ativan) [place] 00 Ativan 2018-10 No Notes: Memoria 1-07 (Same as: l 19:03: Ativan) amLODIPine 2018-10 No Notes: Memor ia 1-07 (Same as: l 15:00: Norvasc) lisinopril 2018-10 No Notes: Memor ia - (Same as: l 15:00: Prinivil, Zestril) multivitami 2018-10 No Notes: Kojo lynn n - (Same l 15:00: as:One Tab Daily, Tab-A-Conor + Beta Carotene) Give with food. NIFEdipine 2018-10 No Notes: Memor ia 60 mg oral 10-15 (Same as: l tablet, 15:00: Adalat CC, Herm hannah Procardia release XL) Give on empty stomach. Take 1 hour before or 2 hours after meal; "Avoid grapefruit and grapefruit juice". Do not crush Haldol 2018-10 No Notes: Memoria 1-07 (Same as: l 10:28: Haldol) Haldol 2018-10 No Notes: Memoria 1-07 (Same as: l 10:25: Haldol) heparin 2018-10 No Notes: Memoria 1-07 porcine l 06:00: heparin tamsulosin 2018-10 No Notes: Memor ia -07 (Same As: l 03:00: Flomax) "Do Not Crush" Amlodipine 2018-10 No 1 cap, Memor ia 10 MG / 10-14 Route: PO, l Benazepril 23:00: Drug Form: H ermann hydrochlori 00 CAP, de 20 MG Dosing Oral Weight Capsule 100.17, kg, TID, Start date: 08/14/19 17:00:00 PLATEN BUILDER UP, Duration: 30 day, Stop date: 09/13/19 13:00:00 PLATEN BUILDER UP carvedilol 2018-10 No Notes: Memor ia 1-06 Give with l 23:00: food. Marlo (Same As: Coreg) Furosemide 2018-10 No Notes: Memor ia 1-06 (Same as: l 23:00: Lasix) [place] May cause GI upset. Give with food or milk. Hydralazine 2018-10 No Notes: Kojo lynn -06 (Same as: l 23:00: Apresoline ) May [...] Blood Glucose Results, Start date: 08/14/19 15:47:00 PLATEN BUILDER UP, Duration: 30 day, Stop date: 09/13/19 15:46:00 PLATEN BUILDER UP, 0 Glucagon 2018-10 No 1 mg, Memoria 10-14 Route: IM, l 21:47: Drug form: PDR/INJ, PRN, Dosing Weight 100.17, kg, PRN Blood Glucose Results, Start date: 08/14/19 15:47:00 PLATEN BUILDER UP, Duration: 30 day, Stop date: 09/13/19 15:46:00 PLATEN BUILDER UP, 0 Ondansetron 2018-10 No Notes: Kojo lynn [...] l oral tablet 20:48: BID, # 180 [place] 00 tab, 0 Refill(s) Hydroxyzine 2018-10 Yes 25 mg = 1 M emoria Hydrochlori 10-14 tab, PO, l de 25 MG 20:48: TID, 0 Dalton Oral Tablet 00 Refill(s) furosemide 2018-10 No 80 mg = 1 Me moria 80 mg oral 10-14 tab, PO, l tablet 20:48: TID, 0 Dalton 00 Refill(s) doxycycline Yes 100 mg = 1 Memoria hyclate 100 04-08 cap, PO, l MG Oral 20:19: Q12H, X 5 [place] nn Capsule 00 day, # 10 cap, 0 Refill(s), Pharmacy: [facility] #[id number] lisinopril Yes 20 mg = 1 Me moria 20 mg oral 04-08 tab, PO, l tablet 20:19: Daily, # Dalton 00 30 tab, 0 Refill(s), Pharmacy: [facility] #[id number] Miralax No Notes: Memoria 04-08 Dissolve l 14:36: in 8 oz of water or juice. (Same as: Miralax) tamsulosin No Notes: Memor ia 6-30 (Same As: l 02:00: Flomax) "Do Not Crush" atorvastati No Notes: Kojo lynn n 630 (Same as: l 02:00: Lipitor) Zithromax + No 500 mg, Mem oria Sodium 6-29 Route: l Chloride 22:00: IVPB, Marlo 0.9% IV 250 00 [id number], mL Dosing Weight 102.273, kg, Start date: [...] With food l Tablet 18:22: or milk Dalton [Xanax] 00 (Same as: Xanax) Hydralazine No Notes: Kojo lynn 6-29 (Same as: l 18:21: Apresoline Dalton 00 ) Push over 5 minutes benazepril [...] -29 weight l allergies 04:00: allergies, He rm Rn pls complete HWA for order selector, Drug form: MISC, Route: MISC, ONCALL, 04/05/19 23:00:00 CDT, Duration: 30 day, Stop date: 05/05/19 22:59:00 CDT, 0 Aspirin 325 No Notes: (Do Memoria MG Enteric 04-06 Not Crush) l Coated 03:00: Do not Marlo Tablet 00 crush or chew. Zithromax No 500 mg, Memor ia 04-06 Route: l 03:00: IVPB, [id number], Dosing Weight 102.273, kg, Start date: 04/05/19 22:00:00 CDT, Duration: 7 day, Stop date: 04/11/19 22:00:00 CDT, ABX Indication : Pneumonia Ceftriaxone No 1 gm, Memor ia 04-06 Route: l 03:00: IVPB, Dalton [id number], Dosing Weight 102.273, kg, Start date: 04/05/19 22:00:00 CDT, Duration: 7 day, Stop date: 04/11/19 22:00:00 CDT, ABX Indication : Pneumonia Glucagon No 1 mg, Memoria 04-06 Route: IM, l 02:03: Drug form: Dalton 00 PDR/INJ, PRN, Dosing Weight 102.273, kg, [...] - not exceed l 02:02: 4 gm/day. (Same as: Tylenol) Hydromorpho No Notes: Kojo lynn ne - Same as: l 01:54: Dilaudid Tramadol No Notes: Not Mem oria -29 to exceed l 01:54: 400mg/day. (Same As: Ultram) NIFEdipine 2017-10 Yes 60 mg = 1 Me moria 60 mg oral 0-16 tab, PO, l tablet, 17:27: Daily, # Rafael n extended 00 30 tab, 0 release Refill(s), Pharmacy: [facility] #[id number] heparin 2017-10 No 10,000 Memoria 0-16 unit, [...] Duration: 30 day, Stop date: 08/20/18 21:00:00 PLATEN BUILDER UP tamsulosin 2017-10 No Notes: Memor ia 0-15 [...] n 0-14 (Same l 14:00: as:One Tab Daily, Tab-A-Conor + Beta Carotene) Give with food. Hydralazine 2017-10 No Notes: Kojo lynn Hydrochlori 0-14 (Same as: l de 50 MG 14:00: Apresoline Her meeks Oral Tablet 00 ) May interfere w/enteral feedings Take With Food Lasix 2017-10 No Notes: Memoria 0-14 (Same as: l 14:00: Lasix) Dalton 00 May cause GI upset. Give with food or milk. carvedilol 2017-10 No Notes: Memor ia 0-14 Give with l 14:00: food. Dalton 00 (Same As: Coreg) calcium 2017-10 No Notes: Memoria acetate 667 0-14 Same as l MG Oral 14:00: Phoslo Gel Herm hannah Capsule 00 Cap Amlodipine 2017-10 No Notes: Memor ia 0-14 (Same as: l 14:00: Norvasc) Dalton 00 Docusate 2017-10 No Notes: Memoria 0-14 (Same as: l 14:00: Colace) Dalton 00 (Do Not Crush) carvedilol 2017-10 Yes 37.5 mg = Me moria 12.5 mg 0-14 3 tab, PO, l oral tablet 11:45: BID, 0 Herm hannah 00 Refill(s) calcium 2017-10 Yes See Memoria acetate 667 0-14 Instructio l MG Oral 11:45: ns, 0 Dalton Capsule 00 Refill(s) Hydralazine 2017-10 Yes 50 mg, PO, Memoria 0-14 TID, 0 l 11:45: Refill(s) Dalton 00 Amlodipine 2017-10 Yes 1 cap, PO, [...] With food l Tablet 11:31: or milk Dalton [Xanax] 00 (Same as: Xanax) Dilaudid 2017-10 [...] 0-14 unit, 10 l 06:00: mL, Route: DIALYSIS, Drug form: INJ, ONCALL, [...] Duration: 30 day, Stop date: 08/21/18 0:42:00 PLATEN BUILDER UP, 2.16, m2 Acetaminoph 2017-10 No Notes: Do [...] Memoria 0-14 Same as: l 05:07: Dilaudid Dalton 00 Zofran 2017-10 No Notes: Memoria 0-14 (Same as: l 04:47: Zofran) Dalton 00 MEDICATION WASTE Product Size: 4 mg [...] tab, PO, l Tablet 16:49: PRN, 0 Dalton Refill(s) amLODIPine Yes 10 mg = 1 Me moria 10 mg oral 8-14 tab, PO, l tablet 16:49: Daily, 0 Marlo 00 Refill(s) tamsulosin No Notes: Memor ia 04-16 (Same As: l 02:00: Flomax) Dalton "Do Not Crush" Hydralazine Yes 50 mg [...] s with feeding tube less than 14 [place] Island[place] (Dobhoff, J-tube etc) and pediatric and patients. With food and full glass of water Hydralazine No Notes: Kojo lynn Hydrochlori 04-15 (Same as: l de 25 MG 14:00: Apresoline Her meeks Oral Tablet 00 ) May interfere w/enteral feedings Take With Food. Lasix No Notes: Memoria 04-15 (Same as: l 14:00: Lasix) Dalton May cause GI upset. Give with food [...] ia 7-08 Give with l 14:00: food. Dalton 00 (Same As: Coreg) calcium No Notes: Memoria acetate 667 7-08 Same as l MG Oral 14:00: Phoslo Gel Herm hannah Capsule 00 Cap Amlodipine No Notes: Memor ia 7-08 (Same as: l 14:00: Norvasc) Morphine No 2 mg, 1 Memori a 7-08 mL, Route: l 09:49: IVP, Drug form: SOLN, Q4H, Dosing Weight 87.784, kg, PRN Pain Score 6-10, Start date: 04/15/18 4:49:00 CDT, Duration: 30 day, Stop date: 05/15/18 4:48:00 CDT Ambien No Notes: Memoria 7-08 (Same As: l 08:47: Ambien) Hydroxyzine Yes 25 mg = 1 M emoria Hydrochlori 7-08 tab, PO, l de 25 MG 08:12: TID, PRN Mercedez nn Oral Tablet 00 Anxiety, # 40 tab, 0 Refill(s) Insulin No Notes: Memoria Lispro -08 (Same as: l 07:15: Humalog ) Roll [...] 04-15 Route: IM, l 07:15: Drug form: Dalton 00 PDR/INJ, PRN, Dosing Weight 74.091, kg, PRN Blood Glucose Results, Start date: 04/15/18 2:15:00 CDT, Duration: 30 day, Stop date: 05/15/18 2:14:00 CDT Ergocalcife No 50,000 Kojo lynn rol [id number] 04-15 IntlUnit, l UNT Oral 07:00: 1 cap, Marlo Capsule 00 Route: PO, Drug form: CAP, qWeek, Dosing Weight 74.091, kg, Start date: 04/15/18 2:00:00 CDT, Duration: 30 day, Stop date: 05/13/18 9:00:00 CDT Alprazolam No Notes: Memor ia 2 MG Oral 04-15 With food l Tablet 06:56: or milk Dalton [Xanax] 00 (Same as: Xanax) NS (Bolus) No 250 mL, Kojo lynn IV 04-15 500 ml/hr, l 06:34: Infuse Dalton 00 Over: 0.5 hr, Route: IV, 250, Drug form: INJ, ONCE, Priority: STAT, Dosing Weight 74.091 kg, Start date: 04/15/18 1:34:00 CDT, Stop date: 04/15/18 1:34:00 CDT Hydralazine No 10 mg, Kojo lynn 04-15 Route: l 06:27: IVP, ONCE, Dalton Dosing Weight 74.091, kg, Priority: STAT, Start date: 04/15/18 1:27:00 CDT, Stop date: 04/15/18 1:27:00 CDT Amlodipine No Notes: Memor ia -08 (Same as: l 03:50: Norvasc) Hydralazine 0 No Notes: Kojo lynn 7-08 (Same as: [...] PO, l Capsule 17:08: Q12H, X 7 Merecdez nn 00 day, # 14 cap, 0 Refill(s), Pharmacy: [facility] #[id number] heparin No 10,000 Memoria 6-11 unit, 10 l 15:00: mL, Route: Dalton 00 DIALYSIS, Drug form: INJ, ONCALL, Dosing [...] ia 6-10 (Same as: l 23:00: Roxicodone Dalton ) Acetaminoph No Notes: Do M emoria en 325 MG / 610 not exceed l Oxycodone 22:00: 4gm/day of He rmann Hydrochlori 00 acetaminop de 5 MG hen. Oral Tablet (Same as: [Percocet Percocet-5 5/325] /325) Amlodipine No Notes: Memor ia 6-10 (Same as: l 14:00: Norvasc) Marlo 00 Alprazolam No Notes: Memor ia 2 MG Oral 6-10 With food l Tablet 04:20: or milk Dalton [Xanax] 00 (Same as: Xanax) Vancomycin No 2001 mg: Me moria Pharmacy 6 infuse l [...] / 6- (Same as: l Hydrocodone 20:10: [place]cedez nn Bitartrate 00 325/5) Do 5 MG Oral not exceed Tablet 4gm/day of [[place] acetaminop 5/325] hen. phenol No Notes: Memoria 03-17 Chlorasept l 20:08: ic Leon Dalton 00 (Same as: Chlorasept ic, Sore Throat Leon) WASTE: F/P - Black; E - Municipal Trash Bin Furosemide Yes 80 mg = 1 Me moria 80 MG Oral 03-17 tab, PO, l Tablet 15:44: BID, 0 Marlo [Lasix] 00 Refill(s) amLODIPine Yes 10 mg = 1 Me moria 10 mg oral 03-17 tab, PO, l tablet 15:44: Daily, # Dalton 00 30 tab, 0 Refill(s) carvedilol Yes 3.125 mg = M emoria 3.125 mg 03-17 1 tab, PO, l oral tablet 15:44: Q12H, # 60 Dalton 00 tab, 0 Refill(s) calcium Yes 2,001 mg = Kojo lynn acetate 667 03-17 3 cap, PO, l MG Oral 15:44: TID, 0 Dalton Capsule 00 Refill(s) Acetaminoph Yes 1 tab, [...] Notes: Memoria 03-17 porcine l 14:00: heparin Dalton 00 heparin No 10,000 Memoria 03-17 unit, 10 l 13:00: mL, Route: Dalton 00 DIALYSIS, Drug form: INJ, ONCALL, Dosing Weight 100.455, kg, Start date: 03/17/18 8:00:00 CDT, Duration: 1 doses or times Mannitol Yes Notes: Memoria 03-17 (Same as: l 12:41: Osmitrol) Infuse through 5 micron or smaller filter WASTE: F/P - Sink; E - Municipal Trash Bin Vancomycin No 2000 mg: Me moria 03-17 infuse l 12:00: over 2.5 Dalton 00 hours For adult patients only: Round to nearest 250 mg per Medical Staff approval MEDICATION WASTE Product Size: 1000 mg Product Wasted: ___ mg Sodium No 2,000 mL, Memori a Chloride 03-17 l 0.9% 12:00: ml/hr, Marlo (Bolus) IV [...] 03-17 not exceed l 11:53: 4 gm/day. Dalton 00 (Same as: Tylenol) Insulin No Notes: [...] Memoria - (Same as: l 10:49: Zosyn) Dalton 00 Dosing based on Piperacill in component MEDICATION WASTE Product Size: 4500 mg Product Wasted: ___ mg Vancomycin No 2001 mg: Me moria 03-17 infuse l 10:49: over 2.5 Dalton 00 hours For adult patients only: Round to nearest 250 mg per Medical Staff approval MEDICATION WASTE Product Size: 1000 mg Product Wasted: ___ mg Saline No Notes: Memoria Flush 0.9% 09 (Same as: l 07:36: BD Dalton Posiflush) Saline No Notes: Memoria Flush 0.9% 4-17 (Same as: l 00:31: BD Marlo 00 Posiflush) Lasix No Notes: Memoria 3-15 (Same as: l 14:00: Lasix) Marlo 00 May cause GI upset. Give with food or milk. calcitriol No 0.5 Memoria 0.5 mcg 3-14 microgram l oral 14:51: = 1 cap, Marlo capsule 00 PO, Daily, # 30 cap, 0 Refill(s), Pharmacy: [id number] Ergocalcife Yes 50,000 Kojo lynn rol [id number] 3-14 IntlUnit = l UNT Oral 14:47: 1 cap, PO, Her meeks Capsule 00 qWeek, # 5 cap, 0 Refill(s), Pharmacy: [id number] Calcium No 2,000 mg = Kojo lynn Carbonate 3-14 4 tab, PO, l 500 MG 14:47: TID, # 168 Mercedez nn Chewable 00 tab, 0 Tablet Refill(s), Pharmacy: [facility] sevelamer No 2,400 mg = Me moria carbonate 3-14 3 tab, PO, l 800 mg oral 14:47: TID-Meals, Marlo tablet 00 # 270 tab, 0 Refill(s), Pharmacy: [facility] Furosemide No 80 mg, PO, M emoria 80 MG Oral 3-14 Daily, # l Tablet 14:47: 30 ea, 0 Marlo [Lasix] 00 Refill(s), Pharmacy: [facility] carvedilol No 3.125 mg = M emoria 3.125 mg 3-14 1 tab, PO, l oral tablet 14:47: Q12H, # 60 Marlo 00 tab, 0 Refill(s), Pharmacy: [facility] amLODIPine No 10 mg = 2 Me moria 5 mg oral 3-14 tab, PO, l tablet 14:47: Daily, # Marlo 00 60 tab, 0 Refill(s), Pharmacy: [facility] Calcium No Notes: Memoria Gluconate 3-14 WASTE: [...] WASTE: F/P l 10:53: - Sink; E Dalton 00 - Municipal Trash Bin Calcium No Notes: Memoria Gluconate 3- WASTE: F/P l 04:35: - Sink; E Marlo 00 - Municipal Trash Bin RenaGel No Notes: Memoria 3-11 Same as: l 17:00: Renvela Dalton 00 Lasix No Notes: Memoria 3-11 (Same [...] Marlo 00 e sulfonate 15 gm/60 ml ACNDACE) Shake well before use. (Same as: Kayexalate , SPS) sodium No Notes: Memoria bicarbonate 3-11 (sodium l 8.4% 01:11: bicarb Dalton 00 8.4% (1 mEq/ml) 50 ml syringe) Amlodipine No Notes: Memor ia 3-10 (Same as: l 15:00: Norvasc) Marlo 00 Kayexalate No Notes: Memor ia 3-10 (sodium l 13:38: polystyren e sulfonate 15 gm/60 ml CANDACE) Shake well before use. (Same as: Kayexalate , SPS) Calcium No Notes: Memoria Gluconate 3- WASTE: F/P l 23:43: - Sink; E Marlo 00 - Municipal Trash Bin Dilaudid No Notes: Memoria 12-15 (Same as: l 21:38: Dilaudid) Dalton Morphine No Notes: Memoria 12-15 (Same l 19:02: as:MORPhin Dalton 00 e Sulfate) Acetaminoph No 2 tabs, Mem oria en 300 MG / 12-15 PO, BID, 0 l Codeine 18:35: Refill(s) [place] nn Phosphate 00 60 MG Oral Tablet [Tylenol with Codeine #4] Alprazolam Yes 2 mg = 1 Mem oria 2 MG Oral 12-15 tab, PO, l Tablet 18:19: BID, PRN Dalton [Xanax] 00 as needed for anxiety, 0 Refill(s) Amlodipine No 1 cap, PO, M emoria 10 MG / 12-15 TID, 0 l Benazepril 18:19: Refill(s) He rmann hydrochlori 00 de 20 MG Oral Capsule [Lotrel 07/28] lisinopril No 20 mg = 1 Me moria 20 mg oral 12-15 tab, PO, l tablet 18:19: Daily, 0 Dalton 00 Refill(s) Calcium No Notes: Memoria Carbonate [...] / 12-15 (Same as: l Hydrocodone 14:31: [place] Mercedez nn Bitartrate 00 325/5) Do 5 MG Oral not exceed Tablet 4gm/day of acetaminop hen. Saline No Notes: Memoria Flush 0.9% - (Same as: l 12:30: BD Marlo 00 Posiflush) Lasix No Notes: Memoria 3-09 (Same as: l 10:45: Lasix) Dalton 00 MEDICATION WASTE Product Size: 40 mg Product Wasted: ___ mg Immunizations Ordered Filled Immunization Date Status Comments [facility] e Immunization Name Name influenza virus 2020-07-15 Completed [facility] vaccine, 19:16:00 inactivated Hep B, Adol or Pedi 2018-08-16 Completed [facility] Dosage 00:00:[address] [facility] Hep B, Adol or Pedi 2018-08-16 Completed [facility] rs[facility] of Dosage 00:00:[address] [facility] Hep B, Adol or Pedi 2018-08-16 Completed [facility] rs[facility] of Dosage 00:00:[address] [facility] Hep B, Adol or Pedi 2018-08-16 Completed [facility] rs[facility] of Dosage 00:00:[address] [facility] Hep B, Adol or Pedi 2018-08-16 Completed [facility] of Dosage 00:00:[address] [facility] Hep B, Adol or Pedi 2018-08-16 Completed [facility] of Dosage 00:00:[address] [facility] Influenza Virus 2018-06-28 Completed [facility] Vaccine [facility] [facility] Influenza Virus 2018-06-28 Completed [facility] Vaccine 00:00:[address] [facility] Influenza Virus 2018-06-28 Completed [facility] Vaccine 00:00:[address] [facility] Influenza Virus 2018-06-28 Completed [facility] Vaccine 00:00:[address] [facility] Influenza Virus 2018-06-28 Completed [facility] Vaccine 00:00:[address] [facility] Influenza Virus 2018-06-28 Completed [facility] Vaccine 00:00:[address] [facility] Hep B, Adol or Pedi 2018-05-08 Completed [facility] rs[facility] of Dosage 00:00:[address] [facility] Hep B, Adol or Pedi 2018-05-08 Completed [facility] of Dosage 00:00:[address] [facility] Hep B, Adol or Pedi 2018-05-08 Completed [facility] rs[facility] of Dosage 00:00:[address] [facility] Hep B, Adol or Pedi 2018-05-08 Completed [facility] rs[facility] of Dosage 00:00:[address] [facility] Hep B, Adol or Pedi 2018-05-08 Completed [facility] rs[facility] of Dosage 00:00:[address] [facility] Hep B, Adol or Pedi 2018-05-08 Completed [facility] rs[facility] of Dosage 00:00:[address] [facility] Hep B, Adol or Pedi 2018-04-05 Completed [facility] rs[facility] of Dosage 00:00:[address] [facility] Hep B, Adol or Pedi 2018-04-05 Completed [facility] rs[facility] of Dosage 00:00:[address] [facility] Hep B, Adol or Pedi 2018-04-05 Completed [facility] rs[facility] of Dosage 00:00:[address] [facility] Hep B, Adol or Pedi 2018-04-05 Completed [facility] rs[facility] of Dosage 00:00:[address] [facility] Hep B, Adol or Pedi 2018-04-05 Completed [facility] rs[facility] of Dosage 00:00:[address] [facility] Hep B, Adol or Pedi 2018-04-05 Completed [facility]ive rsity of Dosage 00:00:[address] [facility] pneumococcal 2018-03-20 Completed [facility] 13-valent vaccine 21:53:00 Hep B, Adol or Pedi 2018-03-03 Completed [facility]ive rsity of Dosage 00:00:[address] [facility] Hep B, Adol or Pedi 2018-03-03 Completed [facility]ive rsity of Dosage 00:00:[address] [facility] Hep B, Adol or Pedi 2018-03-03 Completed [facility]ive rs[facility] of Dosage 00:00:[address] [facility] Hep B, Adol or Pedi 2018-03-03 Completed [facility] rs[facility] of Dosage 00:00:[address] [facility] Hep B, Adol or Pedi 2018-03-03 Completed [facility] rs[facility] of Dosage 00:00:[address] [facility] Hep B, Adol or Pedi 2018-03-03 Completed [facility]ive rsity of Dosage 00:00:[address] [facility] Pneumococcal 2018-03-01 Completed [facility] Polysaccharide, 00:00:00 [facility] PPSV23 (PNEUMOVAX) [facility] Pneumococcal 2018-03-01 Completed [facility] o f Polysaccharide, 00:00:00 [place] [facility] PPSV23 (PNEUMOVAX) [facility] Pneumococcal 2018-03-01 Completed [facility] o f Polysaccharide, 00:00:00 [place] [facility] PPSV23 (PNEUMOVAX) [facility] Pneumococcal 2018-03-01 Completed [facility] o f Polysaccharide, 00:00:00 [place] [facility] PPSV23 (PNEUMOVAX) [facility] Pneumococcal 2018-03-01 Completed [facility] o f Polysaccharide, 00:00:00 [place] [facility] PPSV23 (PNEUMOVAX) [facility] Pneumococcal 2018-03-01 Completed University o f Polysaccharide, 00:00:00 [facility] ical PPSV23 (PNEUMOVAX) Branch PPD (TB) 2018-02-27 Completed University of 00:00:[address] [facility] PPD (TB) 2018-02-27 Completed University of 00:00:[address] [facility] PPD (TB) 2018-02-27 Completed University of 00:00:[address] [facility] PPD (TB) 2018-02-27 Completed University of 00:00:[address] [facility] PPD (TB) 2018-02-27 Completed University of 00:00:[address] [facility] PPD (TB) 2018-02-27 Completed [facility] of 00:00:[address] [facility] Vital Signs Vital Name Observation Time Observation Value Comments Source Heart Rate 2020-08-12 23:15:00 [facility] Respitory Rate 2020-08-12 23:15:00 Memori al [place] Systolic (mm Hg) 2020-08-12 23:15:00 Kojo rial Marlo Diastolic (mm Hg) 2020-08-12 23:15:00 Mem orial Marlo Temperature Oral (F) 2020-08-12 23:15:00 98.1 F [facility] [place] Temperature Oral (F) 2020-08-12 19:20:00 98.0 F [facility] [place] Heart Rate 2020-08-12 19:20:00 [facility] [place] Respitory Rate 2020-08-12 19:20:00 Memori al [place] Systolic (mm Hg) 2020-08-12 19:20:00 Kojo rial Dalton Diastolic (mm Hg) 2020-08-12 19:20:00 Mem orial [place] Respitory Rate 2020-08-12 19:00:00 Memori al Marlo Systolic (mm Hg) 2020-08-12 19:00:00 Kojo rial Dalton Diastolic (mm Hg) 2020-08-12 19:00:00 Mem orial Marlo Temperature Oral (F) 2020-08-12 14:00:00 97.7 F [facility] [place] Heart Rate 2020-08-12 14:00:00 [facility] [place] Temperature Oral (F) 2020-08-10 06:00:00 98.3 F [facility] [place] Heart Rate 2020-08-10 06:00:00 [facility] [place] Respitory Rate 2020-08-10 06:00:00 Memori al [place] Systolic (mm Hg) 2020-08-10 06:00:00 Kojo rial Marlo Diastolic (mm Hg) 2020-08-10 06:00:00 Mem orial [place] Temperature Oral (F) 2020-08-10 02:00:00 98.4 F [facility] [place] Heart Rate 2020-08-10 02:00:00 [facility] [place] Respitory Rate 2020-08-10 02:00:00 Memori al Marlo Systolic (mm Hg) 2020-08-10 02:00:00 Kojo rial Dalton Diastolic (mm Hg) 2020-08-10 02:00:00 Mem orial Marlo Temperature Oral (F) 2020-08-09 22:00:00 98.3 F [facility] [place] Heart Rate 2020-08-09 22:00:00 [facility] [place] Respitory Rate 2020-08-09 22:00:00 Memori al [place] Systolic (mm Hg) 2020-08-09 22:00:00 Kojo rial Marlo Diastolic (mm Hg) 2020-08-09 22:00:00 Mem orial [place] Height 2020-08-07 03:47:00 170.18 cm [facility] [place] Weight 2020-08-07 03:47:00 [facility] [place] BMI Calculated 2020-08-07 03:47:00 [facility] al [place] Height 2020-08-06 18:59:00 152.4 cm [facility] [place] BMI Calculated 2020-08-06 18:59:00 [facility] al [place] Weight 2020-08-06 18:59:00 [facility] [place] Respitory Rate 2020-07-24 16:17:00 [facility] al [place] Systolic (mm Hg) 2020-07-24 16:17:00 Kojo rial Dalton Diastolic (mm Hg) 2020-07-24 16:17:00 Mem orial [place] Temperature Oral (F) 2020-07-24 16:17:00 98.0 F [facility] [place] Respitory Rate 2020-07-24 15:04:00 [facility] al [place] Systolic (mm Hg) 2020-07-24 15:04:00 Kojo rial Marlo Diastolic (mm Hg) 2020-07-24 15:04:00 Mem orial [place] Heart Rate 2020-07-24 15:04:00 [facility] [place] Temperature Oral (F) 2020-07-24 15:04:00 97.9 F [facility] [place] Height 2020-07-24 14:45:00 170.18 cm [facility] [place] BMI Calculated 2020-07-24 14:45:00 Memori al [place] Weight 2020-07-24 14:45:00 [facility] [place] Heart Rate 2020-07-24 13:10:00 [facility] [place] Respitory Rate 2020-07-24 13:10:00 [facility] al [place] Systolic (mm Hg) 2020-07-24 13:10:00 Kojo rial Marlo Diastolic (mm Hg) 2020-07-24 13:10:00 Mem orial [place] Height 2020-07-24 12:55:00 170.18 cm [facility] [place] BMI Calculated 2020-07-24 12:55:00 Memori al Marlo Weight 2020-07-24 12:55:00 [facility] [place] Heart Rate 2020-07-24 12:55:00 [facility] [place] Temperature Oral (F) 2020-07-24 12:55:00 98.2 F [facility] [place] Heart Rate 2020-07-15 19:07:00 [facility] [place] Respitory Rate 2020-07-15 19:07:00 Memori al [place] Systolic (mm Hg) 2020-07-15 19:07:00 Kojo rial Marlo Diastolic (mm Hg) 2020-07-15 19:07:00 Mem orial Marlo Temperature Oral (F) 2020-07-15 17:00:00 98.1 F [facility] [place] Heart Rate 2020-07-15 17:00:00 [facility] [place] Systolic (mm Hg) 2020-07-15 17:00:00 Kojo rial Marlo Diastolic (mm Hg) 2020-07-15 17:00:00 Mem orial [place]lo Respitory Rate 2020-07-15 17:00:00 Memori al [place]lo Temperature Oral (F) 2020-07-15 13:00:00 98.3 F [facility] [place] Heart Rate 2020-07-15 13:00:00 [facility] [place] Systolic (mm Hg) 2020-07-15 13:00:00 Kojo rial Marlo Diastolic (mm Hg) 2020-07-15 13:00:00 Mem orial [place] Temperature Oral (F) 2020-07-15 09:00:00 98.1 F [facility] [place] Respitory Rate 2020-07-15 09:00:00 [facility] al [place] Height 2020-07-06 10:14:00 170.18 cm [facility] [place] BMI Calculated 2020-07-06 10:14:00 [facility] al [place] Weight 2020-07-06 10:14:00 [facility] [place] Systolic (mm Hg) 2020-05-21 15:01:00 Kojo rial Marlo Diastolic (mm Hg) 2020-05-21 15:01:00 Mem orial [place] Heart Rate 2020-05-21 15:01:00 [facility] [place] Respitory Rate 2020-05-21 15:01:00 Memori al [place]lo Height 2020-05-21 13:15:00 170.18 cm [facility] [place] BMI Calculated 2020-05-21 13:15:00 [facility] al [place] Weight 2020-05-21 13:15:00 [facility] [place] Systolic (mm Hg) 2020-05-21 13:15:00 Kojo rial [place] Diastolic (mm Hg) 2020-05-21 13:15:00 Mem orial [place] Heart Rate 2020-05-21 13:15:00 [facility] [place] Respitory Rate 2020-05-21 13:15:00 Memori al Marlo Temperature Oral (F) 2020-05-21 13:15:00 98.5 F [facility] [place] Systolic (mm Hg) 2020-03-23 14:05:00 Kojo rial Marlo Diastolic (mm Hg) 2020-03-23 14:05:00 Mem orial [place] Systolic (mm Hg) 2020-03-23 13:00:00 Kojo rial Marlo Diastolic (mm Hg) 2020-03-23 13:00:00 Mem orial [place] Temperature Oral (F) 2020-03-23 13:00:00 98.5 F [facility] [place] Heart Rate 2020-03-23 13:00:00 [facility] [place] Respitory Rate 2020-03-23 13:00:00 Mem[facility] al [place] Systolic (mm Hg) 2020-03-23 11:10:00 Kojo rial Marlo Diastolic (mm Hg) 2020-03-23 11:10:00 [facility] Respitory Rate 2020-03-23 11:10:00 [facility] Heart Rate 2020-03-23 11:10:00 [facility] Temperature Oral (F) 2020-03-23 11:10:00 98.4 F [facility] Respitory Rate 2020-03-23 09:42:00 [facility] Heart Rate 2020-03-23 09:42:00 [facility] Temperature Oral (F) 2020-03-23 08:46:00 98.3 F [facility] Height 2020-03-23 05:39:00 170.18 cm [facility] BMI Calculated 2020-03-23 05:39:00 [facility] Weight 2020-03-23 05:39:00 [facility] Systolic (mm Hg) 2020-02-03 23:19:00 [facility] Diastolic (mm Hg) 2020-02-03 23:19:00 [facility] Respitory Rate 2020-02-03 23:19:00 [facility] Heart Rate 2020-02-03 23:19:00 [facility] Temperature Oral (F) 2020-02-03 23:19:00 98.6 F [facility] Systolic (mm Hg) 2020-02-03 22:04:00 [facility] Diastolic (mm Hg) 2020-02-03 22:04:00 [facility] Respitory Rate 2020-02-03 22:04:00 [facility] Heart Rate 2020-02-03 22:04:00 [facility] Systolic (mm Hg) 2020-02-03 20:14:00 [facility] Diastolic (mm Hg) 2020-02-03 20:14:00 [facility] Respitory Rate 2020-02-03 20:14:00 [facility] Heart Rate 2020-02-03 20:14:00 [facility] Temperature Oral (F) 2020-02-03 20:14:00 98.5 F [facility] Height 2020-02-03 19:22:00 170.18 cm [facility] BMI Calculated 2020-02-03 19:22:00 [facility] Weight 2020-02-03 19:22:00 [facility] Temperature Oral (F) 2020-02-03 19:22:00 99.0 F [facility] Temperature Oral (F) 2019-11-05 18:00:00 98.3 F [facility] Heart Rate 2019-11-05 18:00:00 [facility] Respitory Rate 2019-11-05 18:00:00 [facility] Systolic (mm Hg) 2019-11-05 18:00:00 Kojo [facility] Diastolic (mm Hg) 2019-11-05 18:00:00 [facility] Temperature Oral (F) 2019-11-05 14:00:00 98.1 F [facility] Heart Rate 2019-11-05 14:00:00 [facility] Respitory Rate 2019-11-05 14:00:00 [facility] Systolic (mm Hg) 2019-11-05 14:00:00 Kojo rial [facility] Diastolic (mm Hg) 2019-11-05 14:00:00 [facility] Respitory Rate 2019-11-05 12:36:00 [facility] Temperature Oral (F) 2019-11-05 10:00:00 98.0 F [facility] Heart Rate 2019-11-05 10:00:00 [facility] Systolic (mm Hg) 2019-11-05 10:00:00 Kojo rial [facility] Diastolic (mm Hg) 2019-11-05 10:00:00 [facility] Height 2019-10-29 07:23:00 170.18 cm [facility] Weight 2019-10-29 07:23:00 [facility] BMI Calculated 2019-10-29 07:23:00 [facility] Height 2019-10-29 01:03:00 170.18 cm [facility] BMI Calculated 2019-10-29 01:03:00 [facility] Weight 2019-10-29 01:03:00 [facility] Temperature Oral (F) 2019-08-20 14:07:00 98.8 F [facility] Heart Rate 2019-08-20 14:07:00 [facility] Respitory Rate 2019-08-20 14:07:00 [facility] Systolic (mm Hg) 2019-08-20 14:07:00 Kojo [facility] Diastolic (mm Hg) 2019-08-20 14:07:00 [facility] Systolic (mm Hg) 2019-08-20 12:15:00 Kojo [facility] Diastolic (mm Hg) 2019-08-20 12:15:00 [facility] Heart Rate 2019-08-20 12:15:00 [facility] Temperature Oral (F) 2019-08-20 09:46:00 98.3 F [facility] Heart Rate 2019-08-20 09:46:00 [facility] Respitory Rate 2019-08-20 09:46:00 [facility] Systolic (mm Hg) 2019-08-20 09:46:00 Kojo [facility] Diastolic (mm Hg) 2019-08-20 09:46:00 [facility] Temperature Oral (F) 2019-08-20 06:02:00 98.5 F [facility] Respitory Rate 2019-08-20 06:02:00 [facility] Height 2019-08-14 22:12:00 175.26 cm [facility] Weight 2019-08-14 22:12:00 [facility] BMI Calculated 2019-08-14 22:12:00 [facility] Respitory Rate 2019-04-08 17:36:00 [facility] Systolic (mm Hg) 2019-04-08 17:36:00 Kojo [facility] Diastolic (mm Hg) 2019-04-08 17:36:00 [facility] Temperature Oral (F) 2019-04-08 17:36:00 98.0 F [facility] Heart Rate 2019-04-08 17:36:00 [facility] Respitory Rate 2019-04-08 13:23:00 [facility] Heart Rate 2019-04-08 13:23:00 [facility] Temperature Oral (F) 2019-04-08 13:23:00 98.1 F [facility] Systolic (mm Hg) 2019-04-08 13:23:00 Kjoo [facility] Diastolic (mm Hg) 2019-04-08 13:23:00 [facility] Systolic (mm Hg) 2019-04-08 08:40:00 Kojo rial Mal[place] Diastolic (mm Hg) 2019-04-08 08:40:00 [facility] Respitory Rate 2019-04-08 08:40:00 [facility] Heart Rate 2019-04-08 08:40:00 [facility] Temperature Oral (F) 2019-04-08 08:40:00 98.0 F [facility] Weight 2019-04-06 04:23:00 [facility] BMI Calculated 2019-04-06 04:17:00 [facility] Height 2019-04-06 04:17:00 167.64 cm [facility] Weight 2019-04-06 04:17:00 [facility] Respitory Rate 2018-07-24 20:59:00 [facility] Systolic (mm Hg) 2018-07-24 20:59:00 Kojo [facility] Diastolic (mm Hg) 2018-07-24 20:59:00 [facility] Heart Rate 2018-07-24 20:59:00 [facility] Temperature Oral (F) 2018-07-24 20:59:00 98.2 F [facility] Temperature Oral (F) 2018-07-24 16:59:00 98.3 F [facility] Heart Rate 2018-07-24 16:59:00 [facility] Respitory Rate 2018-07-24 16:59:00 [facility] Systolic (mm Hg) 2018-07-24 16:59:00 Kojo rial [facility] Diastolic (mm Hg) 2018-07-24 16:59:00 [facility] Systolic (mm Hg) 2018-07-24 16:33:00 Kojo [facility] Diastolic (mm Hg) 2018-07-24 16:33:00 [facility] Temperature Oral (F) 2018-07-24 16:33:00 98.2 F [facility] Respitory Rate 2018-07-24 16:33:00 [facility] Heart Rate 2018-07-24 16:33:00 [facility] Weight 2018-07-22 11:03:00 [facility] BMI Calculated 2018-07-22 11:03:00 [facility] Height 2018-07-22 11:03:00 170.18 cm [facility] BMI Calculated 2018-07-22 01:54:00 [facility] Height 2018-07-22 01:54:00 170.18 cm [facility] Weight 2018-07-22 01:54:00 [facility] Respitory Rate 2018-07-21 02:35:00 [facility] Temperature Oral (F) 2018-07-21 02:35:00 98.6 F [facility] Systolic (mm Hg) 2018-07-21 02:35:00 Kojo [facility] Diastolic (mm Hg) 2018-07-21 02:35:00 [facility] Respitory Rate 2018-07-20 23:36:00 [facility] Systolic (mm Hg) 2018-07-20 23:36:00 Kojo [facility] Diastolic (mm Hg) 2018-07-20 23:36:00 [facility] Systolic (mm Hg) 2018-07-20 22:37:00 Kojo [facility] Diastolic (mm Hg) 2018-07-20 22:37:00 [facility] Respitory Rate 2018-07-20 22:37:00 [facility] Heart Rate 2018-07-20 22:37:00 [facility] Temperature Oral (F) 2018-07-20 22:37:00 97.7 F [facility] Height 2018-07-20 22:37:00 170.18 cm [facility] BMI Calculated 2018-07-20 22:37:00 [facility] Weight 2018-07-20 22:37:00 [facility] BMI Calculated 2018-05-23 15:20:00 [facility] Weight 2018-05-23 15:20:00 [facility] Respitory Rate 2018-05-23 15:20:00 [facility] Heart Rate 2018-05-23 15:20:00 [facility] Height 2018-05-23 15:20:00 170 cm [facility] Systolic (mm Hg) 2018-05-23 15:20:00 Kojo [facility] Diastolic (mm Hg) 2018-05-23 15:20:00 [facility] Systolic (mm Hg) 2018-04-15 21:25:00 Kojo [facility] Diastolic (mm Hg) 2018-04-15 21:25:00 [facility] Respitory Rate 2018-04-15 16:40:00 [facility] Heart Rate 2018-04-15 16:40:00 [facility] Systolic (mm Hg) 2018-04-15 16:40:00 Kojo [facility] Diastolic (mm Hg) 2018-04-15 16:40:00 [facility] Temperature Oral (F) 2018-04-15 16:40:00 98.2 F [facility] Heart Rate 2018-04-15 13:15:00 [facility] Temperature Oral (F) 2018-04-15 13:15:00 98.0 F [facility] Systolic (mm Hg) 2018-04-15 13:15:00 Kojo [facility] Diastolic (mm Hg) 2018-04-15 13:15:00 [facility] Respitory Rate 2018-04-15 13:15:00 [facility] Temperature Oral (F) 2018-04-15 09:31:00 98.2 F [facility] Heart Rate 2018-04-15 09:31:00 [facility] Respitory Rate 2018-04-15 09:31:00 [facility] Weight 2018-04-15 07:53:00 [facility] Weight 2018-04-14 23:25:00 [facility] Height 2018-04-14 23:25:00 172.72 cm [facility] BMI Calculated 2018-04-14 23:25:00 [facility] Systolic (mm Hg) 2018-03-20 16:07:00 Kojo [facility] Diastolic (mm Hg) 2018-03-20 16:07:00 [facility] Respitory Rate 2018-03-20 16:07:00 [facility] Heart Rate 2018-03-20 16:07:00 [facility] Temperature Oral (F) 2018-03-20 16:07:00 98.4 F [facility] Systolic (mm Hg) 2018-03-20 12:44:00 Kojo [facility] Diastolic (mm Hg) 2018-03-20 12:44:00 [facility] Respitory Rate 2018-03-20 12:44:00 [facility] Heart Rate 2018-03-20 12:44:00 [facility] Temperature Oral (F) 2018-03-20 12:44:00 98.3 F [facility] Respitory Rate 2018-03-20 08:46:00 [facility] Temperature Oral (F) 2018-03-20 08:46:00 98.3 F [facility] Heart Rate 2018-03-20 08:46:00 [facility] Systolic (mm Hg) 2018-03-20 08:46:00 Kojo [facility] Diastolic (mm Hg) 2018-03-20 08:46:00 [facility] BMI Calculated 2018-03-17 12:01:00 [facility] Weight 2018-03-17 12:01:00 [facility] Height 2018-03-17 12:01:00 167.64 cm [facility] Weight 2018-03-17 07:27:00 [facility] Temperature Oral (F) 2018-01-23 03:30:00 98.2 F [facility] Respitory Rate 2018-01-23 03:30:00 [facility] Systolic (mm Hg) 2018-01-23 03:30:00 Kojo [facility] Diastolic (mm Hg) 2018-01-23 03:30:00 [facility] Respitory Rate 2018-01-23 01:48:00 [facility] Heart Rate 2018-01-23 01:48:00 [facility] Systolic (mm Hg) 2018-01-23 01:48:00 Kojo [facility] Diastolic (mm Hg) 2018-01-23 01:48:00 [facility] Temperature Oral (F) 2018-01-23 00:14:00 98.2 F [facility] Respitory Rate 2018-01-23 00:14:00 [facility] Systolic (mm Hg) 2018-01-23 00:14:00 Kojo [facility] Diastolic (mm Hg) 2018-01-23 00:14:00 [facility] Heart Rate 2018-01-23 00:14:00 [facility] BMI Calculated 2018-01-23 00:14:00 [facility] Height 2018-01-23 00:14:00 165.1 cm [facility] Weight 2018-01-23 00:14:00 [facility] Systolic (mm Hg) 2017-12-20 12:31:00 Kojo [facility] Diastolic (mm Hg) 2017-12-20 12:31:00 [facility] Temperature Oral (F) 2017-12-20 12:31:00 98.0 F [facility] Respitory Rate 2017-12-20 12:31:00 [facility] Heart Rate 2017-12-20 12:31:00 [facility] Systolic (mm Hg) 2017-12-20 05:00:00 Kojo [facility] Diastolic (mm Hg) 2017-12-20 05:00:00 [facility] Temperature Oral (F) 2017-12-20 05:00:00 98 F [facility] Heart Rate 2017-12-20 05:00:00 [facility] Respitory Rate 2017-12-20 05:00:00 [facility] Temperature Oral (F) 2017-12-20 01:00:00 97.6 F [facility] Heart Rate 2017-12-20 01:00:00 [facility] Systolic (mm Hg) 2017-12-20 01:00:00 Kojo [facility] Diastolic (mm Hg) 2017-12-20 01:00:00 [facility] Respitory Rate 2017-12-20 01:00:00 Maite al [facility] BMI Calculated 2017-12-15 16:46:00 [facility]ite [facility] Weight 2017-12-15 16:46:00 [facility] Height 2017-12-15 16:46:00 170.18 cm [facility] Height 2017-12-15 16:11:00 170.18 cm [facility] Weight 2017-12-15 11:31:00 [facility] Procedures Procedure Date / Time Performed Performing Clinician [facility] e Dialysis access site care Maite al [facility] Knee maneuver [facility] Shoulder manipulation [facility] H ermann Encounters Start End Encounter Admission Attending Care Care Encounter Source Date/Time Date/Time Type Type Clinicians Facility Department ID 2021-11-04 Outpatient 3 [id number] [facility] JACOB [id number] [facility] 12:13:09 5262021-11-04 Outpatient 3 [id number] [facility] REF [id number] [facility] 12:09:58 0519 2021-11-04 Outpatient 3 [id number] [facility] REF [id number] [facility] 12:08:30 0514 2019-04-05 Inpatient E [facility]BL MED [id number] MHB L 20:14:00 2019-04-05 Inpatient YESENIA SHRESTHA [facility] [id number] [facility] 18:31:48 2022-04-27 2022-04-27 Fieldon JOSEE Lara [id number] Univers 00:00:00 00:00:00 Theresa Rosario MULTISPEC 350.1.13.10 [place] [id number] [facility] AND [address] [facility] 2022-04-25 2022-04-[address] [facility] [id number] Univers 00:00:00 00:00:00 Garces A MULTISPEC 350.1.13.10 ity of IALTY 4.2.7.2.[address] [facility] [place] [id number] [address] [facility] 2022-04-22 2022-04-[address] [facility] [id number] Univers 00:00:00 00:00:00 Garces A MULTISPEC 350.1.13.10 ity of IALTY 4.2.7.2.686 [facility] [place] [id number] [address] [facility] 2022-04-21 2022-04-21 Outpatient [facility] [id number] Q-20 Univers 08:00:00 08:00:00 DEZ [id number] ity o [facility] 2022-04-21 2022-04-21 Outpatient [facility] [id number] Univers 08:00:00 08:00:00 GARCES ity o [facility] 2022-04-18 2022-04-18 Outpatient R [facility] [id number] Univers 15:15:00 15:15:00 [id number] ity of [facility] 2022-03-15 2022-03-[address] [facility] [id number] Univers 00:00:00 00:00:00 Dez Clayton MULTISPEC 350.1.13.10 ity of IALTY 4.2.7.2.686 [facility] [place] [id number] [address] [facility] 2022-01-21 2022-01-21 [facility] [id number] Univers 12:23:00 23:59:00 Encounter De[facility] 4.2.7[facility]2.686 [place] [id number] [place] [address] Branch 2022-01-21 2022-01-21 Outpatient R [facility] ACO [id number] Univers 00:00:00 00:00:00 GARCES ity o f [facility] 2021-09-10 2021-09-10 Refill [facility] [id number] Univers 00:00:00 00:00:00 [facility].13.10 [facility] [place] [id number] [place] [address] Branch 2021-04-22 2021-04-22 Office [facility] [id number] 10:30:14 11:33:56 Visit [facility] 350.1.13.10 CLINICS 4.2.7.2.686 [id number] 2021-03-25 2021-03-25 Outpatient [facility] [id number] Q-20 Univers 00:00:00 00:00:00 GARCES [id number] ity o f [facility] 2020-08-06 2020-08-13 Inpatient [facility] [id number] Memoria 18:41:30 00:50:00 dean Adames [facility] 2020-08-06 2020-08-12 Inpatient E [id number] [facility] 20:29:00 18:50:00 SHANNA 2020-07-24 2020-07-24 Emergency [facility] [id number] Memoria 12:53:57 16:22:00 dean Chatterjee [facility] 2020-07-24 2020-07-24 Emergency E PATRICIA [facility] [id number] [facility] 07:53:00 11:22:00 , TINA 2020-07-06 2020-07-15 Inpatient [facility] [id number] [facility] 10:06:46 22:00:00 dean Cramer [facility] 2020-07-06 2020-07-06 Inpatient E VALERIEVA, [facility] MED [id number] [facility] 08:50:00 05:06:00 MELIZA 2020-05-21 2020-05-21 Emergency [facility] [id number] Memoria 13:09:59 15:59:00 dean Sellers 09 l [facility] 2020-05-21 2020-05-21 Emergency E VIRGINIE, MHBL MHBL [id number] MHBL 08:09:00 10:59:00 TREVOR 2020-03-23 2020-03-23 Emergency [facility] [id number] Memoria 05:18:16 15:31:00 r Marlo 08 [facility] 2020-03-23 2020-03-23 Emergency E KINTOM, MHBL MHBL [id number] MHBL 00:18:00 10:31:00 MEGHA 2020-02-03 2020-02-03 Emergency [facility]Fl[facility] [id number] Memoria 19:07:14 23:44:00 dean Sellers 07 [facility] 2020-02-03 2020-02-03 Emergency E GALO, MHBL MHBL [id number] MHBL 14:07:00 18:44:00 MARCI 2019-10-29 2019-11-06 Inpatient [facility] [id number] Memoria 00:57:20 02:15:00 dean Sellers 06 [facility] 2019-10-30 2019-10-28 Inpatient E [facility]BL MED [id number] MHBL 14:55:00 23:23:00 2019-08-16 2019-08-20 Inpatient [facility] [id number] Mem[facility] 00:36:00 19:40:00 dean Sellers 10 [facility] 2019-08-15 2019-08-14 Inpatient U MHBL MED [id number] MHBL 18:36:00 15:56:00 2019-04-06 2019-04-08 Inpatient [facility] [id number] Memoria 01:14:00 21:53:00 dean Sellers 79 l [facility] 2018-07-22 2018-07-24 Inpatient [facility] [id number] Memoria 01:45:00 23:05:00 r Marlo 05 [facility] 2018-07-20 2018-07-21 Emergency [facility]Fl[facility] [id number] Memoria 22:20:00 02:38:00 r Marlo 04 [facility] 2018-05-23 2018-06-22 OP nullFlavo Transplant [id number] Memoria 14:47:00 04:59:00 Transplant r Center 00 l [facility] 2018-04-14 2018-04-15 Observatio [facility]Flavo [facility] [id number] Memoria 23:17:00 21:55:00 n r Marlo 03 [facility] 2018-03-17 2018-03-20 Inpatient [facility] [id number] Memoria 07:25:00 22:12:00 r Marlo 02 [facility] 2018-01-22 2018-01-23 Emergency [facility]Fl[facility] [id number] Memoria 23:36:00 03:58:00 r Marlo 01 [facility] 2017-12-15 2017-12-20 Inpatient [facility]Fl[facility] [id number] Memoria 11:29:00 18:55:00 r Marlo 00 [facility] Results Test Description Test Time Test Comments Results Result Comments Source CHEM PANEL 2020-08-12 09:42:00 Test Item Value Reference Range Interpretation Comme nts Glucose Lvl (test code = Glucose Lvl) 79 70-99 [place] [id number] 09:42:00 Test Item Value Reference Range Interpretation Comments BUN (test code = BUN) 21 7-22 [place] [id number] 09:42:00 Test Item Value Reference Range Interpretation Comments Creatinine Lvl (test code = Creatinine 7.93 0.50-1.40 Lvl) [facility]2020-11-04 09:42:00 Test Item Value Reference Range Interpretation Comments Sodium Lvl (test code = Sodium Lvl) 139 135-145 [place] 957540-11-04 09:42:00 Test Item Value Reference Range Interpretation Comments Potassium Lvl (test code = Potassium 3.2 3.5-5.1 Lvl) [place] [id number] 09:42:00 Test Item Value Reference Range Interpretation Comments Chloride Lvl (test code = Chloride Lvl) 104 95-109 [facility]2020-11-04 09:42:00 Test Item Value Reference Range Interpretation Comments CO2 (test code = CO2) 27 24-32 [place] 957540-11-04 09:42:00 Test Item Value Reference Range Interpretation Comments Calcium Lvl (test code = Calcium Lvl) 8.8 8.5-10.5 [place] [address]-11-04 09:42:00 Test Item Value Reference Range Interpretation Comments AGAP (test code = AGAP) 11.2 10.0-20.0 [place] [address]-11-04 09:42:00 Test Item Value Reference Range Interpretation Comments eGFR (test code = eGFR) 7 [facility]UvtlpfvMKEMNSPCUS5291-90-17 09:42:00 Test Item Value Reference Range Interpretation Comments Neutrophils # (test code = Neutrophils 4.7 1.5-8.1 #) [place] 676690-11-04 09:42:00 Test Item Value Reference Range Interpretation Comments Lymphocytes # (test code = Lymphocytes 1.2 1.0-5.5 #) [place] [address]-11-04 09:42:00 Test Item Value Reference Range Interpretation Comments Monocytes # (test code 0.2 See_Comment [Aut omated message] The = Monocytes #) system which generated this result tra nsmitted reference range : <=0.8. The reference r yared was not used to int erpret this result as normal/abnormal . [place] 676690-11-04 09:42:00 Test Item Value Reference Range Interpretation Comments Eosinophils # (test code 0.2 See_Comment [A utomated message] The = Eosinophils #) system whic h generated this result tra nsmitted reference range : <=0.5. The reference r yared was not used to int erpret this result as normal/abnormal . [place] 676690-11-04 09:42:00 Test Item Value Reference Range Interpretation Comments Segs (test code = Segs) 71.0 45.0-75.0 [place] 676690-11-04 09:42:00 Test Item Value Reference Range Interpretation Comments Bands (test code = 2.0 See_Comment [Automat ed message] The Bands) system which ge nerated this result transmit emerson reference range : <=11.0. The reference r yared was not used to interpr et this result as erinn l/abnormal. [facility] TexasRcygxizTMMFLSDQHM2371-54-83 09:42:00 Test Item Value Reference Range Interpretation Comments Lymphocytes (test code = Lymphocytes) 18.0 20.0-40.0 [facility] TexasUpbpxdfISLXYGDDJG9074-07-24 09:42:00 Test Item Value Reference Range Interpretation Comments Monocytes (test code = Monocytes) 3.0 2.0-12.0 [facility] TexasNlylhsdGBRXMGWNWY2046-01-76 09:42:00 Test Item Value Reference Range Interpretation Comments Eosinophils (test code = 3.0 See_Comment [A utomated message] The Eosinophils) system which ge nerated this result tra nsmitted reference range : <=4.0. The reference r yared was not used to int erpret this result as normal/abnormal . [facility] TexasHwgiwntLXBJCYNZTP3976-14-75 09:42:00 Test Item Value Reference Range Interpretation Comments Metamyelocytes (test code 2.0 See_Comment [ Automated message] = Metamyelocytes) The system which generated this result transmitted ref erence range: <=1.0. T he reference range was not used to int erpret this result as normal/abnormal . [facility] TexasSlxttlyKOSYJJWXPJ5224-73-42 09:42:00 Test Item Value Reference Range Interpretation Comments Myelocytes (test code = Myelocytes) 1.0 [facility] TexasHqaubvtPLYBZFWFUJ6720-78-72 09:42:00 Test Item Value Reference Range Interpretation Comments Atypical Lymphs (test code = Atypical 0.0 Lymphs) [facility] TexasAhdjkrjTVWHWXCMDR4682-76-24 09:42:00 Test Item Value Reference Range Interpretation Comments NRBC (test code = NRBC) 1 [facility] TexasAnzekucVVQBKRYXEY8368-82-38 09:42:00 Test Item Value Reference Range Interpretation Comments RBC Morph (test code = Normal (08/12/20 3:42 RBC Morph) AM) [facility] TexasSdfuakiSFKUVDBYGM7722-64-51 09:42:00 Test Item Value Reference Range Interpretation Comments Plt Morph (test code = Normal (08/12/20 3:42 Plt Morph) AM) [facility] TexasXtgnmhmXBMWKWBWLS2264-47-52 09:42:00 Test Item Value Reference Range Interpretation Comments Tot Cell Ct (test code = Tot Cell Ct) 100 1 [facility] TexasMnitmlbRFWPUFEAFQ2456-87-16 09:42:00 Test Item Value Reference Range Interpretation Comments Polychrom (test code = Moderate *ABN*(08/12/20 Polychrom) 3:42 AM) [facility] TexasGweuuddCYUCELXDAC2027-74-29 09:42:00 Test Item Value Reference Range Interpretation Comments WBC (test code = WBC) 6.4 3.7-10.4 [facility] TexasCkipwneQEEBKISIVW9710-76-94 09:42:00 Test Item Value Reference Range Interpretation Comments RBC (test code = RBC) 3.02 4.70-6.10 [facility] TexasKrgopwzNJIMTDUKDP6968-05-34 09:42:00 Test Item Value Reference Range Interpretation Comments Hgb (test code = Hgb) 9.0 14.0-18.0 [facility] TexasKqitiohNDXJQOIYTY5570-31-16 09:42:00 Test Item Value Reference Range Interpretation Comments Hct (test code = Hct) 25.9 42.0-54.0 [facility] TexasDzbvzwtLJEYLVDZGV3107-36-02 09:42:00 Test Item Value Reference Range Interpretation Comments MCV (test code = MCV) 85.7 80.0-94.0 [facility] TexasAfuuwvwPNSEZNREWX8658-31-74 09:42:00 Test Item Value Reference Range Interpretation Comments MCH (test code = MCH) 30.0 pg 27.0-31.0 [facility] TexasAkrthywHWYBMXGRWJ3792-37-91 09:42:00 Test Item Value Reference Range Interpretation Comments MCHC (test code = MCHC) 34.9 32.0-36.0 [facility] TexasPymmthxJFXEJQSQIK7402-53-81 09:42:00 Test Item Value Reference Range Interpretation Comments RDW (test code = RDW) 14.8 11.5-14.5 [facility] TexasKfoxvnoAXUBGEGTSC1543-06-32 09:42:00 Test Item Value Reference Range Interpretation Comments Platelet (test code = Platelet) 169 133-450 [facility] TexasPtwavncOUQXAZRLWB1730-41-17 09:42:00 Test Item Value Reference Range Interpretation Comments MPV (test code = MPV) 7.0 7.4-10.4 [facility]2020-11-03 09:35:00 Test Item Value Reference Range Interpretation Comments Glucose Lvl (test code = Glucose Lvl) 80 70-99 [facility] OOXWU6783-09-48 09:35:00 Test Item Value Reference Range Interpretation Comments BUN (test code = BUN) 13 7-22 [place] 957540-11-03 09:35:00 Test Item Value Reference Range Interpretation Comments Creatinine Lvl (test code = Creatinine 5.51 0.50-1.40 Lvl) [place] 957540-11-03 09:35:00 Test Item Value Reference Range Interpretation Comments Sodium Lvl (test code = Sodium Lvl) 140 135-145 [place] [address]-11-03 09:35:00 Test Item Value Reference Range Interpretation Comments Potassium Lvl (test code = Potassium 3.2 3.5-5.1 Lvl) [place] [address]-11-03 09:35:00 Test Item Value Reference Range Interpretation Comments Chloride Lvl (test code = Chloride Lvl) 105 95-109 [place] [address]-11-03 09:35:00 Test Item Value Reference Range Interpretation Comments CO2 (test code = CO2) 28 24-32 [place] [address]-11-03 09:35:00 Test Item Value Reference Range Interpretation Comments Calcium Lvl (test code = Calcium Lvl) 8.4 8.5-10.5 [place] [address]-11-03 09:35:00 Test Item Value Reference Range Interpretation Comments AGAP (test code = AGAP) 10.2 10.0-20.0 [place] [address]-11-03 09:35:00 Test Item Value Reference Range Interpretation Comments eGFR (test code = eGFR) 10 [place] [address]-11-03 09:35:00 Test Item Value Reference Range Interpretation Comments Segs (test code = Segs) 68.4 45.0-75.0 [place] [address]-11-03 09:35:00 Test Item Value Reference Range Interpretation Comments Lymphocytes (test code = Lymphocytes) 17.8 20.0-40.0 [place] [address]-11-03 09:35:00 Test Item Value Reference Range Interpretation Comments Monocytes (test code = Monocytes) 9.3 2.0-12.0 [place] [address]-11-03 09:35:00 Test Item Value Reference Range Interpretation Comments Eosinophils (test code = 3.7 See_Comment [A utomated message] The Eosinophils) system which ge nerated this result tra nsmitted reference range : <=4.0. The reference r yared was not used to int erpret this result as normal/abnormal . [place] [address]-11-03 09:35:00 Test Item Value Reference Range Interpretation Comments Basophils (test code = 0.8 See_Comment [Aut omated message] The Basophils) system which ge nerated this result tra nsmitted reference range : <=1.0. The reference r yared was not used to int erpret this result as normal/abnormal . [place] [address]-11-03 09:35:00 Test Item Value Reference Range Interpretation Comments Neutrophils # (test code = Neutrophils 4.1 1.5-8.1 #) [place] [address]-11-03 09:35:00 Test Item Value Reference Range Interpretation Comments Lymphocytes # (test code = Lymphocytes 1.1 1.0-5.5 #) [place] [address]-11-03 09:35:00 Test Item Value Reference Range Interpretation Comments Monocytes # (test code 0.6 See_Comment [Aut omated message] The = Monocytes #) system which generated this result tra nsmitted reference range : <=0.8. The reference r yared was not used to int erpret this result as normal/abnormal . [place] [address]-11-03 09:35:00 Test Item Value Reference Range Interpretation Comments Eosinophils # (test code 0.2 See_Comment [A utomated message] The = Eosinophils #) system whic h generated this result tra nsmitted reference range : <=0.5. The reference r yared was not used to int erpret this result as normal/abnormal . [facility]GxtuqzbARKJFNHMVO9863-23-60 09:35:00 Test Item Value Reference Range Interpretation Comments WBC (test code = WBC) 6.0 3.7-10.4 [place] [address]-11-03 09:35:00 Test Item Value Reference Range Interpretation Comments RBC (test code = RBC) 2.84 4.70-6.10 [place] [address]-11-03 09:35:00 Test Item Value Reference Range Interpretation Comments Hgb (test code = Hgb) 8.1 14.0-18.0 [place] [address]-11-03 09:35:00 Test Item Value Reference Range Interpretation Comments Hct (test code = Hct) 24.2 42.0-54.0 [place] [address]-11-03 09:35:00 Test Item Value Reference Range Interpretation Comments MCV (test code = MCV) 85.3 80.0-94.0 [place] [address]-11-03 09:35:00 Test Item Value Reference Range Interpretation Comments MCH (test code = MCH) 28.7 pg 27.0-31.0 [place] [address]-11-03 09:35:00 Test Item Value Reference Range Interpretation Comments MCHC (test code = MCHC) 33.6 32.0-36.0 [place] [address]-11-03 09:35:00 Test Item Value Reference Range Interpretation Comments RDW (test code = RDW) 14.5 11.5-14.5 [place] [address]-11-03 09:35:00 Test Item Value Reference Range Interpretation Comments Platelet (test code = Platelet) 171 133-450 [place] [address]-11-03 09:35:00 Test Item Value Reference Range Interpretation Comments MPV (test code = MPV) 7.4 7.4-10.4 [facility]2020-11-02 09:39:00 Test Item Value Reference Range Interpretation Comments Glucose Lvl (test code = Glucose Lvl) 110 70-99 [facility]2020-11-02 09:39:00 Test Item Value Reference Range Interpretation Comments BUN (test code = BUN) 21 7-22 [facility]2020-11-02 09:39:00 Test Item Value Reference Range Interpretation Comments Creatinine Lvl (test code = Creatinine 6.77 0.50-1.40 Lvl) [place] 957540-11-02 09:39:00 Test Item Value Reference Range Interpretation Comments Sodium Lvl (test code = Sodium Lvl) 139 135-145 [facility]2020-11-02 09:39:00 Test Item Value Reference Range Interpretation Comments Potassium Lvl (test code = Potassium 3.5 3.5-5.1 Lvl) [facility]2020-11-02 09:39:00 Test Item Value Reference Range Interpretation Comments Chloride Lvl (test code = Chloride Lvl) 104 95-109 [place] 957540-11-02 09:39:00 Test Item Value Reference Range Interpretation Comments CO2 (test code = CO2) 29 24-32 [place] 957540-11-02 09:39:00 Test Item Value Reference Range Interpretation Comments AGAP (test code = AGAP) 9.5 10.0-20.0 [place] [address]-11-02 09:39:00 Test Item Value Reference Range Interpretation Comments Calcium Lvl (test code = Calcium Lvl) 7.9 8.5-10.5 [place] 957540-11-02 09:39:00 Test Item Value Reference Range Interpretation Comments eGFR (test code = eGFR) 8 [place] 676690-11-02 09:39:00 Test Item Value Reference Range Interpretation Comments Neutrophils # (test code = Neutrophils 3.8 1.5-8.1 #) [place] [address]-11-02 09:39:00 Test Item Value Reference Range Interpretation Comments Lymphocytes # (test code = Lymphocytes 1.1 1.0-5.5 #) [place] 676690-11-02 09:39:00 Test Item Value Reference Range Interpretation Comments Monocytes # (test code 0.2 See_Comment [Aut omated message] The = Monocytes #) system which generated this result tra nsmitted reference range : <=0.8. The reference r yared was not used to int erpret this result as normal/abnormal . [place] [address]-11-02 09:39:00 Test Item Value Reference Range Interpretation Comments Eosinophils # (test code 0.4 See_Comment [A utomated message] The = Eosinophils #) system whic h generated this result tra nsmitted reference range : <=0.5. The reference r yared was not used to int erpret this result as normal/abnormal . [place] [address]-11-02 09:39:00 Test Item Value Reference Range Interpretation Comments Segs (test code = Segs) 64.0 45.0-75.0 [place] [address]-11-02 09:39:00 Test Item Value Reference Range Interpretation Comments Bands (test code = 2.0 See_Comment [Automat ed message] The Bands) system which ge nerated this result transmit emerson reference range : <=11.0. The reference r yared was not used to interpr et this result as erinn l/abnormal. [facility] TexasBdzfjktVATECFFFSB6363-69-05 09:39:00 Test Item Value Reference Range Interpretation Comments Lymphocytes (test code = Lymphocytes) 20.0 20.0-40.0 [place] [address]-11-02 09:39:00 Test Item Value Reference Range Interpretation Comments Monocytes (test code = Monocytes) 4.0 2.0-12.0 [place] [address]-11-02 09:39:00 Test Item Value Reference Range Interpretation Comments Eosinophils (test code = 7.0 See_Comment [A utomated message] The Eosinophils) system which ge nerated this result tra nsmitted reference range : <=4.0. The reference r yared was not used to int erpret this result as normal/abnormal . [place] 676690-11-02 09:39:00 Test Item Value Reference Range Interpretation Comments Myelocytes (test code = Myelocytes) 3.0 [place] [address]-11-02 09:39:00 Test Item Value Reference Range Interpretation Comments Atypical Lymphs (test code = Atypical 0.0 Lymphs) [place] [address]-11-02 09:39:00 Test Item Value Reference Range Interpretation Comments NRBC (test code = NRBC) 1 [place] 676690-11-02 09:39:00 Test Item Value Reference Range Interpretation Comments RBC Morph (test code = Normal (08/10/20 3:39 RBC Morph) AM) [facility] TexasOvsufruQZTATXPDXY3574-22-62 09:39:00 Test Item Value Reference Range Interpretation Comments Plt Morph (test code = Normal (08/10/20 3:39 Plt Morph) AM) [place] [address]-11-02 09:39:00 Test Item Value Reference Range Interpretation Comments WBC (test code = WBC) 5.7 3.7-10.4 [place] [address]-11-02 09:39:00 Test Item Value Reference Range Interpretation Comments RBC (test code = RBC) 2.61 4.70-6.10 [place] [address]-11-02 09:39:00 Test Item Value Reference Range Interpretation Comments Hgb (test code = Hgb) 7.5 14.0-18.0 [place] [address]-11-02 09:39:00 Test Item Value Reference Range Interpretation Comments Hct (test code = Hct) 22.3 42.0-54.0 [facility] TexasAebbmdsWPEGZRJNFN5688-68-96 09:39:00 Test Item Value Reference Range Interpretation Comments MCV (test code = MCV) 85.6 80.0-94.0 [facility] TexasBxzxndfIRAXJCWJJV5395-77-33 09:39:00 Test Item Value Reference Range Interpretation Comments MCH (test code = MCH) 28.8 pg 27.0-31.0 [place] 676690-11-02 09:39:00 Test Item Value Reference Range Interpretation Comments MCHC (test code = MCHC) 33.6 32.0-36.0 [facility] TexasHfpsevzAFVXFEXQDN0674-55-00 09:39:00 Test Item Value Reference Range Interpretation Comments RDW (test code = RDW) 13.9 11.5-14.5 [facility] TexasHkyztqwEFOYVCVPBP2141-10-00 09:39:00 Test Item Value Reference Range Interpretation Comments Platelet (test code = Platelet) 164 133-450 [facility] TexasKutjsscNBFKZMYOIO0215-68-58 09:39:00 Test Item Value Reference Range Interpretation Comments MPV (test code = MPV) 7.5 7.4-10.4 [place] 676690-11-01 16:40:00 Test Item Value Reference Range Interpretation Comments WBC (test code = WBC) 5.7 3.7-10.4 [facility] TexasUcbojbtAKJSGVHIJM6588-47-38 16:40:00 Test Item Value Reference Range Interpretation Comments RBC (test code = RBC) 2.82 4.70-6.10 [facility] TexasIcrqawgPETISVTBKY4691-25-59 16:40:00 Test Item Value Reference Range Interpretation Comments Hgb (test code = Hgb) 8.0 14.0-18.0 [place] [address]-11-01 16:40:00 Test Item Value Reference Range Interpretation Comments Hct (test code = Hct) 24.2 42.0-54.0 [place] 676690-11-01 16:40:00 Test Item Value Reference Range Interpretation Comments MCV (test code = MCV) 85.8 80.0-94.0 [place] 676690-11-01 16:40:00 Test Item Value Reference Range Interpretation Comments MCH (test code = MCH) 28.6 pg 27.0-31.0 [facility] TexasAnmmcjxIYVOUPPTQL2400-32-50 16:40:00 Test Item Value Reference Range Interpretation Comments MCHC (test code = MCHC) 33.3 32.0-36.0 [place] 676690-11-01 16:40:00 Test Item Value Reference Range Interpretation Comments RDW (test code = RDW) 14.1 11.5-14.5 [place] 676690-11-01 16:40:00 Test Item Value Reference Range Interpretation Comments Platelet (test code = Platelet) 169 133-450 [facility] TexasBbdvuxjVQXQCTLKVC6778-92-30 16:40:00 Test Item Value Reference Range Interpretation Comments MPV (test code = MPV) 7.2 7.4-10.4 [place] 676690-11-01 16:40:00 Test Item Value Reference Range Interpretation Comments Segs (test code = Segs) 72.6 45.0-75.0 [place] 676690-11-01 16:40:00 Test Item Value Reference Range Interpretation Comments Lymphocytes (test code = Lymphocytes) 14.6 20.0-40.0 [place] 676690-11-01 16:40:00 Test Item Value Reference Range Interpretation Comments Monocytes (test code = Monocytes) 7.8 2.0-12.0 [place] 676690-11-01 16:40:00 Test Item Value Reference Range Interpretation Comments Eosinophils (test code = 4.4 See_Comment [A utomated message] The Eosinophils) system which ge nerated this result tra nsmitted reference range : <=4.0. The reference r yared was not used to int erpret this result as normal/abnormal . [place] 676690-11-01 16:40:00 Test Item Value Reference Range Interpretation Comments Basophils (test code = 0.6 See_Comment [Aut omated message] The Basophils) system which ge nerated this result tra nsmitted reference range : <=1.0. The reference r yared was not used to int erpret this result as normal/abnormal . [place] 676690-11-01 16:40:00 Test Item Value Reference Range Interpretation Comments Neutrophils # (test code = Neutrophils 4.2 1.5-8.1 #) [place] 676690-11-01 16:40:00 Test Item Value Reference Range Interpretation Comments Lymphocytes # (test code = Lymphocytes 0.8 1.0-5.5 #) [facility] TexasBtwjaxbZUSMIYJXGM1308-08-38 16:40:00 Test Item Value Reference Range Interpretation Comments Monocytes # (test code 0.4 See_Comment [Aut omated message] The = Monocytes #) system which generated this result tra nsmitted reference range : <=0.8. The reference r yared was not used to int erpret this result as normal/abnormal . [place] 676690-11-01 16:40:00 Test Item Value Reference Range Interpretation Comments Eosinophils # (test code 0.2 See_Comment [A utomated message] The = Eosinophils #) system whic h generated this result tra nsmitted reference range : <=0.5. The reference r yared was not used to int erpret this result as normal/abnormal . [place] 923420-11-01 16:40:00 Test Item Value Reference Range Interpretation Comments Hep B Core Ab (test code = Hep B NON-REACTIVE Core Ab) [place] 923420-11-01 16:40:00 Test Item Value Reference Range Interpretation Comments Hep Bs Ag (test code = Hep Bs NON-REACTIVE Ag) [place] [address]-11-01 16:40:00 Test Item Value Reference Range Interpretation Comments Hep Bs Ab (test code = Hep Bs Ab) 7 [place] 957540-11-01 14:48:00 Test Item Value Reference Range Interpretation Comments Glucose Lvl (test code = Glucose Lvl) 70 70-99 [facility]2020-11-01 14:48:00 Test Item Value Reference Range Interpretation Comments BUN (test code = BUN) 25 7-22 [place] 957540-11-01 14:48:00 Test Item Value Reference Range Interpretation Comments Creatinine Lvl (test code = Creatinine 8.85 0.50-1.40 Lvl) [facility]2020-11-01 14:48:00 Test Item Value Reference Range Interpretation Comments Sodium Lvl (test code = Sodium Lvl) 139 135-145 [facility]2020-11-01 14:48:00 Test Item Value Reference Range Interpretation Comments Potassium Lvl (test code = Potassium 4.0 3.5-5.1 Lvl) [place] 957540-11-01 14:48:00 Test Item Value Reference Range Interpretation Comments Chloride Lvl (test code = Chloride Lvl) 100 95-109 [place] 957540-11-01 14:48:00 Test Item Value Reference Range Interpretation Comments CO2 (test code = CO2) 30 24-32 [facility]2020-11-01 14:48:00 Test Item Value Reference Range Interpretation Comments Calcium Lvl (test code = Calcium Lvl) 7.5 8.5-10.5 [place] 957540-11-01 14:48:00 Test Item Value Reference Range Interpretation Comments Total Protein (test code = Total 4.2 6.4-8.4 Protein) [facility]2020-11-01 14:48:00 Test Item Value Reference Range Interpretation Comments Albumin Lvl (test code = Albumin Lvl) 1.3 3.5-5.0 [facility]2020-11-01 14:48:00 Test Item Value Reference Range Interpretation Comments ALT (test code = ALT) 14 See_Comment [Auto mated message] The system which ge nerated this result transmit emerson reference range : <=65. The reference range was not used to interpr et this result as erinn l/abnormal. [facility] [id number] 14:48:00 Test Item Value Reference Range Interpretation Comments AST (test code = AST) 17 See_Comment [Auto mated message] The system which ge nerated this result transmit emerson reference range : <=37. The reference range was not used to interpr et this result as erinn l/abnormal. [facility]2020-11-01 14:48:00 Test Item Value Reference Range Interpretation Comments Alk Phos (test code = Alk Phos) 92 39-136 [facility] [id number] 14:48:00 Test Item Value Reference Range Interpretation Comments Bili Total (test code = Bili Total) 0.5 0.2-1.3 [place] 957540-11-01 14:48:00 Test Item Value Reference Range Interpretation Comments AGAP (test code = AGAP) 13.0 10.0-20.0 [place] 957540-11-01 14:48:00 Test Item Value Reference Range Interpretation Comments B/C Ratio (test code = B/C Ratio) 3 1 6-25 [place] [address]-11-01 14:48:00 Test Item Value Reference Range Interpretation Comments Globulin (test code = Globulin) 2.9 2.7-4.2 [place] 957540-11-01 14:48:00 Test Item Value Reference Range Interpretation Comments A/G Ratio (test code = A/G Ratio) 0.4 1 0.7-1.6 [place] [address]-11-01 14:48:00 Test Item Value Reference Range Interpretation Comments eGFR (test code = eGFR) 6 [place] 957540-11-01 14:48:00 Test Item Value Reference Range Interpretation Comments Magnesium Lvl (test code = Magnesium 1.8 1.8-2.4 Lvl) [place] 676690-11-01 10:41:00 Test Item Value Reference Range Interpretation Comments Hgb (test code = Hgb) 7.6 14.0-18.0 [place] 676690-11-01 02:33:00 Test Item Value Reference Range Interpretation Comments Hgb (test code = Hgb) 7.9 14.0-18.0 [place] 676690-10-31 20:10:00 Test Item Value Reference Range Interpretation Comments Hct (test code = Hct) 23.0 42.0-54.0 [facility]2020-10-31 19:15:00 Test Item Value Reference Range Interpretation Comments Color BF (test code = Light Yellow (08/08/20 Color BF) 2:15 PM) [facility]2020-10-31 19:15:00 Test Item Value Reference Range Interpretation Comments Clarity BF (test code = Slight Cloudy Clarity BF) (08/08/20 2:15 PM) [facility]2020-10-31 19:15:00 Test Item Value Reference Range Interpretation Comments Nucleated Cells BF (test code = 571 Nucleated Cells BF) [facility]2020-10-31 19:15:00 Test Item Value Reference Range Interpretation Comments RBC BF (test code = RBC BF) 512 [facility]2020-10-31 19:15:00 Test Item Value Reference Range Interpretation Comments Neutrophils BF (test code = Neutrophils 18 BF) [facility] [id number] 19:15:00 Test Item Value Reference Range Interpretation Comments Lymph BF (test code = Lymph BF) 10 [facility]2020-10-31 19:15:00 Test Item Value Reference Range Interpretation Comments Macrophage BF (test code = Macrophage 44 BF) [facility] [id number] 19:15:00 Test Item Value Reference Range Interpretation Comments Eos BF (test code = Eos BF) 26 [facility]udaTom[facility] [id number] 19:15:00 Test Item Value Reference Range Interpretation Comments Meso BF (test code = Meso BF) 2 [facility]udaT[facility] [id number] 19:15:00 Test Item Value Reference Range Interpretation Comments CellCnt BF Type (test Abdomn (08/08/20 2:15 code = CellCnt BF Type) PM) [facility]udaG[facility] Stain [id number] 19:15:00 Test Item Value Reference Range Interpretation Comments Gram Stain Report Few WBC's No Organisms (test code = Gram Seen Stain Report) [facility]udaCulture: Aspirate/Body Fluid/[id number] 19:15:00 Test Item Value Reference Range Interpretation Comments Culture: Aspirate/Body Fluid/Tissue No Growth (test code = Culture: Aspirate/Body Fluid/Tissue) [facility]udaG[facility] [id number] 15:28:09 Test Item Value Reference Range Interpretation Comments RBC product (test code Product available = RBC product) 4(08/08/20 10:28 AM) [facility] [id number] 14:41:00 Test Item Value Reference Range Interpretation Comments ABO/Rh (test code = ABO/Rh) O POS [facility] [id number] 14:41:00 Test Item Value Reference Range Interpretation Comments Antibody Scrn (test Negative (08/08/20 code = Antibody Scrn) 9:41 AM) [facility] BudaNkexkucHZFEKALQPN8254-56-15 14:41:00 Test Item Value Reference Range Interpretation Comments WBC (test code = WBC) 6.0 3.7-10.4 [facility] BudaCtlpfjoNSHKIHMOFP0211-64-37 14:41:00 Test Item Value Reference Range Interpretation Comments RBC (test code = RBC) 2.32 4.70-6.10 [place] 676690-10-31 14:41:00 Test Item Value Reference Range Interpretation Comments Hct (test code = Hct) 19.8 42.0-54.0 [facility] TexasKyqwvheUFEEAIQVOW8751-61-16 14:41:00 Test Item Value Reference Range Interpretation Comments MCV (test code = MCV) 85.6 80.0-94.0 [place] 676690-10-31 14:41:00 Test Item Value Reference Range Interpretation Comments MCH (test code = MCH) 29.0 pg 27.0-31.0 [facility] TexasWzdqrcuYCILIYSDBF8190-15-46 14:41:00 Test Item Value Reference Range Interpretation Comments MCHC (test code = MCHC) 33.8 32.0-36.0 [facility] TexasOdlepvpLMMXLPHMZE2155-69-35 14:41:00 Test Item Value Reference Range Interpretation Comments RDW (test code = RDW) 13.9 11.5-14.5 [place] 676690-10-31 14:41:00 Test Item Value Reference Range Interpretation Comments Platelet (test code = Platelet) 176 133-450 [facility] TexasXhtwdmtKMTWIUHWKT7512-10-25 14:41:00 Test Item Value Reference Range Interpretation Comments MPV (test code = MPV) 6.8 7.4-10.4 [place] 676690-10-31 14:41:00 Test Item Value Reference Range Interpretation Comments Neutrophils # (test code = Neutrophils 4.1 1.5-8.1 #) [place] 676690-10-31 14:41:00 Test Item Value Reference Range Interpretation Comments Lymphocytes # (test code = Lymphocytes 1.4 1.0-5.5 #) [place] 676690-10-31 14:41:00 Test Item Value Reference Range Interpretation Comments Monocytes # (test code 0.1 See_Comment [Aut omated message] The = Monocytes #) system which generated this result tra nsmitted reference range : <=0.8. The reference r yared was not used to int erpret this result as normal/abnormal . [facility] TexasXqfxsnqJOSJUDUIDW2072-39-34 14:41:00 Test Item Value Reference Range Interpretation Comments Eosinophils # (test code 0.4 See_Comment [A utomated message] The = Eosinophils #) system whic h generated this result tra nsmitted reference range : <=0.5. The reference r yared was not used to int erpret this result as normal/abnormal . [facility] TexasPfobotaDVCXCNBSSP8604-70-06 14:41:00 Test Item Value Reference Range Interpretation Comments Segs (test code = Segs) 68.0 45.0-75.0 [place] 676690-10-31 14:41:00 Test Item Value Reference Range Interpretation Comments Bands (test code = 1.0 See_Comment [Automat ed message] The Bands) system which ge nerated this result transmit emerson reference range : <=11.0. The reference r yared was not used to interpr et this result as erinn l/abnormal. [facility] TexasHcfytiuEAONOUZVHN5405-48-40 14:41:00 Test Item Value Reference Range Interpretation Comments Lymphocytes (test code = Lymphocytes) 14.0 20.0-40.0 [place] 676690-10-31 14:41:00 Test Item Value Reference Range Interpretation Comments Monocytes (test code = Monocytes) 2.0 2.0-12.0 [place] 676690-10-31 14:41:00 Test Item Value Reference Range Interpretation Comments Eosinophils (test code = 6.0 See_Comment [A utomated message] The Eosinophils) system which ge nerated this result tra nsmitted reference range : <=4.0. The reference r yared was not used to int erpret this result as normal/abnormal . [place] 676690-10-31 14:41:00 Test Item Value Reference Range Interpretation Comments Atypical Lymphs (test code = Atypical 9.0 Lymphs) [place] 676690-10-31 14:41:00 Test Item Value Reference Range Interpretation Comments RBC Morph (test code = See Note (08/08/20 RBC Morph) 9:41 AM) [place] [address]-10-31 14:41:00 Test Item Value Reference Range Interpretation Comments Plt Morph (test code = Normal (08/08/20 9:41 Plt Morph) AM) [place] [address]-10-31 14:41:00 Test Item Value Reference Range Interpretation Comments Anisocyte (test code = 1+ *ABN*(08/08/20 Anisocyte) 9:41 AM) [place] [id number] 14:41:00 Test Item Value Reference Range Interpretation Comments Macrocyte (test code = 1+ *ABN*(08/08/20 Macrocyte) 9:41 AM) [place] 676690-10-31 14:41:00 Test Item Value Reference Range Interpretation Comments Hypochrom (test code = 1+ (08/08/20 9:41 Hypochrom) AM) [place] 676690-10-31 14:41:00 Test Item Value Reference Range Interpretation Comments Polychrom (test code = Moderate Polychrom) *ABN*(08/08/20 9:41 AM) [facility]2020-10-31 08:42:00 Test Item Value Reference Range Interpretation Comments Glucose Lvl (test code = Glucose Lvl) 80 70-99 [facility]2020-10-31 08:42:00 Test Item Value Reference Range Interpretation Comments BUN (test code = BUN) 34 7-22 [facility]2020-10-31 08:42:00 Test Item Value Reference Range Interpretation Comments Creatinine Lvl (test code = Creatinine 10.90 0.50-1.40 Lvl) [facility]2020-10-31 08:42:00 Test Item Value Reference Range Interpretation Comments Sodium Lvl (test code = Sodium Lvl) 138 135-145 [facility]2020-10-31 08:42:00 Test Item Value Reference Range Interpretation Comments Potassium Lvl (test code = Potassium 3.6 3.5-5.1 Lvl) [facility]2020-10-31 08:42:00 Test Item Value Reference Range Interpretation Comments Chloride Lvl (test code = Chloride Lvl) 99 95-109 [place] 957540-10-31 08:42:00 Test Item Value Reference Range Interpretation Comments CO2 (test code = CO2) 33 24-32 [facility]2020-10-31 08:42:00 Test Item Value Reference Range Interpretation Comments Calcium Lvl (test code = Calcium Lvl) 8.1 8.5-10.5 [facility]2020-10-31 08:42:00 Test Item Value Reference Range Interpretation Comments AGAP (test code = AGAP) 9.6 10.0-20.0 [place] 957540-10-31 08:42:00 Test Item Value Reference Range Interpretation Comments eGFR (test code = eGFR) 5 [facility] [id number] 08:42:00 Test Item Value Reference Range Interpretation Comments Phosphorus (test code = Phosphorus) 4.4 2.5-4.5 [facility]VeqjiapBLUKVEPKEN6139-04-98 08:42:00 Test Item Value Reference Range Interpretation Comments WBC (test code = WBC) 6.7 3.7-10.4 [facility] TexasZvbjlkwAKLQXWPMOC3955-64-02 08:42:00 Test Item Value Reference Range Interpretation Comments RBC (test code = RBC) 2.53 4.70-6.10 [facility] TexasPtgdxaoTDTEPVJCXX0779-61-90 08:42:00 Test Item Value Reference Range Interpretation Comments MCV (test code = MCV) 84.8 80.0-94.0 [facility] TexasIishfilPZRUYQWWMY6337-85-69 08:42:00 Test Item Value Reference Range Interpretation Comments MCH (test code = MCH) 28.5 pg 27.0-31.0 [place] 676690-10-31 08:42:00 Test Item Value Reference Range Interpretation Comments MCHC (test code = MCHC) 33.6 32.0-36.0 [facility] TexasNbhiqqmXFXFLDZIFS5917-81-33 08:42:00 Test Item Value Reference Range Interpretation Comments RDW (test code = RDW) 14.4 11.5-14.5 [facility] TexasIlvagjwRNIHJYLEGR0358-82-20 08:42:00 Test Item Value Reference Range Interpretation Comments Platelet (test code = Platelet) 182 133-450 [facility] TexasWjtubdtGDMGOAVXBO2729-46-37 08:42:00 Test Item Value Reference Range Interpretation Comments MPV (test code = MPV) 7.0 7.4-10.4 [place] 676690-10-31 08:42:00 Test Item Value Reference Range Interpretation Comments Segs (test code = Segs) 71.1 45.0-75.0 [facility] TexasPobexmtWTIFDBBPEZ0966-87-71 08:42:00 Test Item Value Reference Range Interpretation Comments Lymphocytes (test code = Lymphocytes) 16.3 20.0-40.0 [facility] TexasRryddveYJJRXAISZH0292-06-61 08:42:00 Test Item Value Reference Range Interpretation Comments Monocytes (test code = Monocytes) 8.0 2.0-12.0 [place] 676690-10-31 08:42:00 Test Item Value Reference Range Interpretation Comments Eosinophils (test code = 4.0 See_Comment [A utomated message] The Eosinophils) system which ge nerated this result tra nsmitted reference range : <=4.0. The reference r yared was not used to int erpret this result as normal/abnormal . [place] 676690-10-31 08:42:00 Test Item Value Reference Range Interpretation Comments Basophils (test code = 0.6 See_Comment [Aut omated message] The Basophils) system which ge nerated this result tra nsmitted reference range : <=1.0. The reference r yared was not used to int erpret this result as normal/abnormal . [place] 676690-10-31 08:42:00 Test Item Value Reference Range Interpretation Comments Neutrophils # (test code = Neutrophils 4.7 1.5-8.1 #) [place] 676690-10-31 08:42:00 Test Item Value Reference Range Interpretation Comments Lymphocytes # (test code = Lymphocytes 1.1 1.0-5.5 #) [place] 676690-10-31 08:42:00 Test Item Value Reference Range Interpretation Comments Monocytes # (test code 0.5 See_Comment [Aut omated message] The = Monocytes #) system which generated this result tra nsmitted reference range : <=0.8. The reference r yared was not used to int erpret this result as normal/abnormal . [place] 676690-10-31 08:42:00 Test Item Value Reference Range Interpretation Comments Eosinophils # (test code 0.3 See_Comment [A utomated message] The = Eosinophils #) system whic h generated this result tra nsmitted reference range : <=0.5. The reference r yared was not used to int erpret this result as normal/abnormal . [place] 676690-10-31 02:01:00 Test Item Value Reference Range Interpretation Comments PT (test code = PT) 13.2 s 12.0-14.7 [place] 38[address]-10-31 02:01:00 Test Item Value Reference Range Interpretation Comments INR (test code = INR) 1.00 1 0.85-1.17 [facility] TexasJdxcmjnQMAJGRRNTN5176-86-93 02:01:00 Test Item Value Reference Range Interpretation Comments PTT (test code = PTT) 29.8 s 22.9-35.8 [facility]quoqdSLBGPCLHMP6244-44-84 02:01:00 Test Item Value Reference Range Interpretation Comments Basophils (test code = 0.6 See_Comment [Aut omated message] The Basophils) system which ge nerated this result tra nsmitted reference range : <=1.0. The reference r yared was not used to int erpret this result as normal/abnormal . [facility]udaEskybcjIGNMSYOZPF9194-92-00 02:01:00 Test Item Value Reference Range Interpretation Comments Hep Bs Ag (test code Negative *NA*(08/07/20 = Hep Bs Ag) 9:01 PM) [facility]2020-10-30 21:23:00 Test Item Value Reference Range Interpretation Comments Glucose Lvl (test code = Glucose Lvl) 72 70-99 [facility]2020-10-30 21:23:00 Test Item Value Reference Range Interpretation Comments BUN (test code = BUN) 28 7-22 [facility]2020-10-30 21:23:00 Test Item Value Reference Range Interpretation Comments Creatinine Lvl (test code = Creatinine 9.63 0.50-1.40 Lvl) [facility]2020-10-30 21:23:00 Test Item Value Reference Range Interpretation Comments Sodium Lvl (test code = Sodium Lvl) 137 135-145 [facility]2020-10-30 21:23:00 Test Item Value Reference Range Interpretation Comments Potassium Lvl (test code = Potassium 3.6 3.5-5.1 Lvl) [facility]2020-10-30 21:23:00 Test Item Value Reference Range Interpretation Comments Chloride Lvl (test code = Chloride Lvl) 99 95-109 [facility]2020-10-30 21:23:00 Test Item Value Reference Range Interpretation Comments CO2 (test code = CO2) 32 24-32 [facility]2020-10-30 21:23:00 Test Item Value Reference Range Interpretation Comments AGAP (test code = AGAP) 9.6 10.0-20.0 [facility]2020-10-30 21:23:00 Test Item Value Reference Range Interpretation Comments Calcium Lvl (test code = Calcium Lvl) 8.3 8.5-10.5 [facility]UndertoneCHEM [id number] 21:23:00 Test Item Value Reference Range Interpretation Comments eGFR (test code = eGFR) 5 [facility] BudaXtyvasfZENTRCBMRD7626-85-73 15:21:00 Test Item Value Reference Range Interpretation Comments Coronavirus (COVID-19) Not Detected JUVENCIO (test code = (08/07/20 10:21 AM) Coronavirus (COVID-19) JUVENCIO) [facility] HospitalannCARDIAC WJFVYIU7691-21-46 08:08:00 Test Item Value Reference Range Interpretation Comments Total CK (test code = Total CK) 50 12-191 [facility] [id number] 08:08:00 Test Item Value Reference Range Interpretation Comments B/C Ratio (test code = B/C Ratio) 3 1 6-25 [facility] [id number] 08:08:00 Test Item Value Reference Range Interpretation Comments Total Protein (test code = Total 4.5 6.4-8.4 Protein) [facility] [id number] 08:08:00 Test Item Value Reference Range Interpretation Comments Albumin Lvl (test code = Albumin Lvl) 1.4 3.5-5.0 [facility] [id number] 08:08:00 Test Item Value Reference Range Interpretation Comments Globulin (test code = Globulin) 3.1 2.7-4.2 [facility] [employer] [id number] 08:08:00 Test Item Value Reference Range Interpretation Comments A/G Ratio (test code = A/G Ratio) 0.5 1 0.7-1.6 [facility] [id number] 08:08:00 Test Item Value Reference Range Interpretation Comments ALT (test code = ALT) 15 See_Comment [Auto mated message] The system which ge nerated this result transmit emerson reference range : <=65. The reference range was not used to interpr et this result as erinn l/abnormal. [facility] [employer] [id number] 08:08:00 Test Item Value Reference Range Interpretation Comments AST (test code = AST) 16 See_Comment [Auto mated message] The system which ge nerated this result transmit emerson reference range : <=37. The reference range was not used to interpr et this result as erinn l/abnormal. [facility] [employer] [id number] 08:08:00 Test Item Value Reference Range Interpretation Comments Alk Phos (test code = Alk Phos) 82 39-136 [facility] HospitalUndertoneCHRISTOP[place] [address]10PPUNQ3141-91-05 08:08:00 Test Item Value Reference Range Interpretation Comments Bili Total (test code = Bili Total) 0.4 0.2-1.3 [facility] [id number] 08:08:00 Test Item Value Reference Range Interpretation Comments Magnesium Lvl (test code = Magnesium 1.7 1.8-2.4 Lvl) [facility] [id number] 08:08:00 Test Item Value Reference Range Interpretation Comments Phosphorus (test code = Phosphorus) 3.8 2.5-4.5 [facility] BudaQlmhdcbCXTUZGBYTQ7171-36-97 08:08:00 Test Item Value Reference Range Interpretation Comments PT (test code = PT) 13.0 s 12.0-14.7 [facility] BudaSleppnvJVHYPHBYLJ5946-68-28 08:08:00 Test Item Value Reference Range Interpretation Comments INR (test code = INR) 0.98 1 0.85-1.17 [facility] BudaYharzwhZSHGQKHVOC0100-81-32 08:08:00 Test Item Value Reference Range Interpretation Comments PTT (test code = PTT) 30.5 s 22.9-35.8 [facility] HospitalKmbfmytQZZJNNUEZM7362-90-37 08:08:00 Test Item Value Reference Range Interpretation Comments Basophils # (test code 0.1 See_Comment [Aut omated message] The = Basophils #) system which generated this result tra nsmitted reference range : <=0.2. The reference r yared was not used to int erpret this result as normal/abnormal . [facility] HospitalKnehfneNLJMSMOHWB6050-96-41 02:04:00 Test Item Value Reference Range Interpretation Comments Basophils # (test code 0.1 See_Comment [Aut omated message] The = Basophils #) system which generated this result tra nsmitted reference range : <=0.2. The reference r yared was not used to int erpret this result as normal/abnormal . [facility] [employer] [id number] 01:34:00 Test Item Value Reference Range Interpretation Comments Total Protein (test code = Total 4.8 6.4-8.4 Protein) [facility] [id number] 01:34:00 Test Item Value Reference Range Interpretation Comments Albumin Lvl (test code = Albumin Lvl) 1.6 3.5-5.0 [place] 462[address]-10-30 01:34:00 Test Item Value Reference Range Interpretation Comments Globulin (test code = Globulin) 3.2 2.7-4.2 [facility]The [facility] [id number] 01:34:00 Test Item Value Reference Range Interpretation Comments A/G Ratio (test code = A/G Ratio) 0.5 1 0.7-1.6 [facility] [id number] 01:34:00 Test Item Value Reference Range Interpretation Comments ALT (test code = ALT) 14 See_Comment [Auto mated message] The system which ge nerated this result transmit emerson reference range : <=65. The reference range was not used to interpr et this result as erinn l/abnormal. [facility] [id number] 01:34:00 Test Item Value Reference Range Interpretation Comments AST (test code = AST) 16 See_Comment [Auto mated message] The system which ge nerated this result transmit emerson reference range : <=37. The reference range was not used to interpr et this result as erinn l/abnormal. [facility] [id number] 01:34:00 Test Item Value Reference Range Interpretation Comments Alk Phos (test code = Alk Phos) 85 39-136 [facility] [id number] 01:34:00 Test Item Value Reference Range Interpretation Comments Bili Total (test code = Bili Total) 0.4 0.2-1.3 [facility] [id number] 01:34:00 Test Item Value Reference Range Interpretation Comments Bili Direct (test code no gt See_Comment [Aut omated message] The = Bili Direct) system which generated this result tra nsmitted reference range : <=0.3. The reference r yared was not used to int erpret this result as erinn l/abnormal. [facility] [id number] 01:34:00 Test Item Value Reference Range Interpretation Comments Bili Indirect Unable to See_Comment [Automated (test code = Bili Calculate message] T he system Indirect) which generated this result transmitted reference range : <=1.0. The reference range was not used to interpret this result as normal/abnormal . [facility]annCARDIAC [id number] 22:24:00 Test Item Value Reference Range Interpretation Comments Troponin-I (test code 0.03 See_Comment [Auto mated message] The = Troponin-I) system which g enerated this result transmit emerson reference range : <=0.40. The reference r yared was not used to interpr et this result as erinn l/abnormal. [facility] HospitalannCHEM [id number] 22:24:00 Test Item Value Reference Range Interpretation Comments Magnesium Lvl (test code = Magnesium 1.6 1.8-2.4 Lvl) [facility] [id number] 22:24:00 Test Item Value Reference Range Interpretation Comments Bands (test code = 2.0 See_Comment [Automat ed message] The Bands) system which ge nerated this result transmit emerson reference range : <=11.0. The reference r yared was not used to interpr et this result as erinn l/abnormal. [facility] BudaGtldpjsOQNPWWDCNJ6712-18-39 22:24:00 Test Item Value Reference Range Interpretation Comments Metamyelocytes (test code 1.0 See_Comment [ Automated message] = Metamyelocytes) The system which generated this result transmitted ref erence range: <=1.0. T he reference range was not used to int erpret this result as normal/abnormal . [facility] BudaSmxggcwGMEYISHIHW1616-94-15 22:24:00 Test Item Value Reference Range Interpretation Comments Myelocytes (test code = Myelocytes) 1.0 [facility] BudaWbgjmxhFNMTJFJBNN7309-37-28 22:24:00 Test Item Value Reference Range Interpretation Comments Atypical Lymphs (test code = Atypical 0.0 Lymphs) [facility] BudaBpcfstaDBFVHJCSZR8537-22-89 22:24:00 Test Item Value Reference Range Interpretation Comments RBC Morph (test code = Normal (08/06/20 5:24 RBC Morph) PM) [facility] HospitalRrytkgmHPYORZVDAB0651-65-14 22:24:00 Test Item Value Reference Range Interpretation Comments Plt Morph (test code = Normal (08/06/20 5:24 Plt Morph) PM) [facility] HospitalUyhkgdzKRZJCTAGQM5570-02-92 22:24:00 Test Item Value Reference Range Interpretation Comments Toxic Gran (test code Moderate *ABN*(08/06/20 = Toxic Gran) 5:24 PM) [facility] HospitalBgqnshxSETGQFKFTP8245-34-80 22:24:00 Test Item Value Reference Range Interpretation Comments PT (test code = PT) 12.9 s 12.0-14.7 [facility] HospitalYmmdiexBGBBFEMQMN2292-08-04 22:24:00 Test Item Value Reference Range Interpretation Comments INR (test code = INR) 0.97 1 0.85-1.17 [facility]udaCARDIAC [id number] 13:32:00 Test Item Value Reference Range Interpretation Comments Troponin-I (test code 0.03 See_Comment [Auto mated message] The = Troponin-I) system which g enerated this result transmit emerson reference range : <=0.40. The reference r yared was not used to interpr et this result as erinn l/abnormal. [facility] [id number] 13:32:00 Test Item Value Reference Range Interpretation Comments Glucose Lvl (test code = Glucose Lvl) 101 70-99 [facility] [id number] 13:32:00 Test Item Value Reference Range Interpretation Comments BUN (test code = BUN) 25 7-22 [facility] [id number] 13:32:00 Test Item Value Reference Range Interpretation Comments Creatinine Lvl (test code = Creatinine 9.66 0.50-1.40 Lvl) [facility] [id number] 13:32:00 Test Item Value Reference Range Interpretation Comments Sodium Lvl (test code = Sodium Lvl) 132 135-145 [facility] [id number] 13:32:00 Test Item Value Reference Range Interpretation Comments Potassium Lvl (test code = Potassium 3.0 3.5-5.1 Lvl) [facility] [id number] 13:32:00 Test Item Value Reference Range Interpretation Comments Chloride Lvl (test code = Chloride Lvl) 91 95-109 [facility] [id number] 13:32:00 Test Item Value Reference Range Interpretation Comments CO2 (test code = CO2) 32 24-32 [facility] [id number] 13:32:00 Test Item Value Reference Range Interpretation Comments AGAP (test code = AGAP) 12.0 10.0-20.0 [facility] [employer] [id number] 13:32:00 Test Item Value Reference Range Interpretation Comments Calcium Lvl (test code = Calcium Lvl) 8.7 8.5-10.5 [facility] [id number] 13:32:00 Test Item Value Reference Range Interpretation Comments B/C Ratio (test code = B/C Ratio) 3 1 6-25 [facility] [employer] [id number] 13:32:00 Test Item Value Reference Range Interpretation Comments Total Protein (test code = Total 4.9 6.4-8.4 Protein) [facility] [id number] 13:32:00 Test Item Value Reference Range Interpretation Comments Albumin Lvl (test code = Albumin Lvl) 1.5 3.5-5.0 [facility] [id number] 13:32:00 Test Item Value Reference Range Interpretation Comments Globulin (test code = Globulin) 3.4 2.7-4.2 [facility] [employer] [id number] 13:32:00 Test Item Value Reference Range Interpretation Comments A/G Ratio (test code = A/G Ratio) 0.4 1 0.7-1.6 [facility] [employer] [id number] 13:32:00 Test Item Value Reference Range Interpretation Comments ALT (test code = ALT) 16 See_Comment [Auto mated message] The system which ge nerated this result transmit emerson reference range : <=65. The reference range was not used to interpr et this result as erinn l/abnormal. [facility] [employer] [id number] 13:32:00 Test Item Value Reference Range Interpretation Comments AST (test code = AST) 22 See_Comment [Auto mated message] The system which ge nerated this result transmit emerson reference range : <=37. The reference range was not used to interpr et this result as erinn l/abnormal. [facility] [employer] [id number] 13:32:00 Test Item Value Reference Range Interpretation Comments Alk Phos (test code = Alk Phos) 88 39-136 [facility] [employer] [id number] 13:32:00 Test Item Value Reference Range Interpretation Comments Bili Total (test code = Bili Total) 0.5 0.2-1.3 [facility]2020-10-16 13:32:00 Test Item Value Reference Range Interpretation Comments eGFR (test code = eGFR) 5 [facility] BudaPvqgysnECKVKLBFAH1633-33-30 13:32:00 Test Item Value Reference Range Interpretation Comments WBC (test code = WBC) 6.2 3.7-10.4 [facility] HospitalAyceyxiBGOCTIJPTI6217-26-44 13:32:00 Test Item Value Reference Range Interpretation Comments RBC (test code = RBC) 2.89 4.70-6.10 [facility] BudaSgnyffgOZVSCDQBVY7511-84-07 13:32:00 Test Item Value Reference Range Interpretation Comments Hgb (test code = Hgb) 8.4 14.0-18.0 [facility] BudaXrjjcdhTCSIAWBZQO7443-09-47 13:32:00 Test Item Value Reference Range Interpretation Comments Hct (test code = Hct) 24.1 42.0-54.0 [facility] TexasJwhpjxsCRVRXQECJA7656-72-77 13:32:00 Test Item Value Reference Range Interpretation Comments MCV (test code = MCV) 83.3 80.0-94.0 [facility] BudaCshfvqcQWVYJBJJZF7258-29-34 13:32:00 Test Item Value Reference Range Interpretation Comments MCH (test code = MCH) 29.0 pg 27.0-31.0 [facility] BudaNdnyyckBRFOMOUPOV1578-05-67 13:32:00 Test Item Value Reference Range Interpretation Comments MCHC (test code = MCHC) 34.8 32.0-36.0 [facility] HospitalWmytpnnCBDPLLYOSH0478-97-81 13:32:00 Test Item Value Reference Range Interpretation Comments RDW (test code = RDW) 13.6 11.5-14.5 [facility] BudaPsimwzzBQPLKHASHM7304-22-96 13:32:00 Test Item Value Reference Range Interpretation Comments Platelet (test code = Platelet) 221 133-450 [facility] BudaXnedzrhUTAZXAUKKE2770-17-59 13:32:00 Test Item Value Reference Range Interpretation Comments MPV (test code = MPV) 6.6 7.4-10.4 [facility] TexasJbltialPVMPFGACGT7755-23-35 13:32:00 Test Item Value Reference Range Interpretation Comments Segs (test code = Segs) 73.5 45.0-75.0 [facility] HospitalRdterfqDSRQHQNHTG6763-40-35 13:32:00 Test Item Value Reference Range Interpretation Comments Lymphocytes (test code = Lymphocytes) 11.4 20.0-40.0 [facility] TexasAxtrwmaICLVANEFMI6049-33-07 13:32:00 Test Item Value Reference Range Interpretation Comments Monocytes (test code = Monocytes) 8.7 2.0-12.0 [facility] TexasQdyekklEPFRPQBVQK4837-83-19 13:32:00 Test Item Value Reference Range Interpretation Comments Eosinophils (test code = 5.4 See_Comment [A utomated message] The Eosinophils) system which ge nerated this result tra nsmitted reference range : <=4.0. The reference r yared was not used to int erpret this result as normal/abnormal . [facility] TexasSiujpyrDNMDKSKLHV7787-29-97 13:32:00 Test Item Value Reference Range Interpretation Comments Basophils (test code = 1.0 See_Comment [Aut omated message] The Basophils) system which ge nerated this result tra nsmitted reference range : <=1.0. The reference r yared was not used to int erpret this result as normal/abnormal . [facility] TexasFavhsdeYHPCPODSXQ6701-20-87 13:32:00 Test Item Value Reference Range Interpretation Comments Neutrophils # (test code = Neutrophils 4.5 1.5-8.1 #) [facility] TexasSkyptnaBAGTHUTJDN8943-60-07 13:32:00 Test Item Value Reference Range Interpretation Comments Lymphocytes # (test code = Lymphocytes 0.7 1.0-5.5 #) [facility] TexasBgsfpmoKLPFTTXTKL2412-37-22 13:32:00 Test Item Value Reference Range Interpretation Comments Monocytes # (test code 0.5 See_Comment [Aut omated message] The = Monocytes #) system which generated this result tra nsmitted reference range : <=0.8. The reference r yared was not used to int erpret this result as normal/abnormal . [facility] TexasJtbwzrdLLPCPZYAIJ8110-00-27 13:32:00 Test Item Value Reference Range Interpretation Comments Eosinophils # (test code 0.3 See_Comment [A utomated message] The = Eosinophils #) system whic h generated this result tra nsmitted reference range : <=0.5. The reference r yared was not used to int erpret this result as normal/abnormal . [facility] TexasItmrzrvBCOEOEBVKZ3928-64-70 13:32:00 Test Item Value Reference Range Interpretation Comments Basophils # (test code 0.1 See_Comment [Aut omated message] The = Basophils #) system which generated this result tra nsmitted reference range : <=0.2. The reference r yared was not used to int erpret this result as normal/abnormal . [facility] [employer] [id number] 08:13:00 Test Item Value Reference Range Interpretation Comments Glucose Lvl (test code = Glucose Lvl) 125 70-99 [facility] [employer] [id number] 08:13:00 Test Item Value Reference Range Interpretation Comments BUN (test code = BUN) 26 7-22 [facility] [employer] [id number] 08:13:00 Test Item Value Reference Range Interpretation Comments Creatinine Lvl (test code = Creatinine 9.23 0.50-1.40 Lvl) [facility] [employer] [id number] 08:13:00 Test Item Value Reference Range Interpretation Comments Sodium Lvl (test code = Sodium Lvl) 135 135-145 [facility] [employer] [id number] 08:13:00 Test Item Value Reference Range Interpretation Comments Potassium Lvl (test code = Potassium 3.8 3.5-5.1 Lvl) [facility] [employer] [id number] 08:13:00 Test Item Value Reference Range Interpretation Comments Chloride Lvl (test code = Chloride Lvl) 97 95-109 [facility] [employer] [id number] 08:13:00 Test Item Value Reference Range Interpretation Comments CO2 (test code = CO2) 28 24-32 [facility] [employer] [id number] 08:13:00 Test Item Value Reference Range Interpretation Comments Calcium Lvl (test code = Calcium Lvl) 9.0 8.5-10.5 [facility] [employer] [id number] 08:13:00 Test Item Value Reference Range Interpretation Comments AGAP (test code = AGAP) 13.8 10.0-20.0 [facility] [employer] [id number] 08:13:00 Test Item Value Reference Range Interpretation Comments eGFR (test code = eGFR) 6 [facility]ann[facility]ULAR [id number] 22:34:00 Test Item Value Reference Range Interpretation Comments C difficile DNA (test Negative (07/14/20 5:34 code = C difficile DNA) PM) [facility] AND [id number] 22:34:00 Test Item Value Reference Range Interpretation Comments Fecal Leukocyte (test None Seen (07/14/20 code = Fecal Leukocyte) 5:34 PM) [facility] [id number] 08:37:00 Test Item Value Reference Range Interpretation Comments Glucose Lvl (test code = Glucose Lvl) 125 70-99 [facility] [id number] 08:37:00 Test Item Value Reference Range Interpretation Comments BUN (test code = BUN) 30 7-22 [facility] [id number] 08:37:00 Test Item Value Reference Range Interpretation Comments Creatinine Lvl (test code = Creatinine 9.56 0.50-1.40 Lvl) [facility]2020-10-06 08:37:00 Test Item Value Reference Range Interpretation Comments Sodium Lvl (test code = Sodium Lvl) 136 135-145 [facility]2020-10-06 08:37:00 Test Item Value Reference Range Interpretation Comments Potassium Lvl (test code = Potassium 3.4 3.5-5.1 Lvl) [facility]2020-10-06 08:37:00 Test Item Value Reference Range Interpretation Comments Chloride Lvl (test code = Chloride Lvl) 99 95-109 [facility]2020-10-06 08:37:00 Test Item Value Reference Range Interpretation Comments CO2 (test code = CO2) 28 24-32 [facility]2020-10-06 08:37:00 Test Item Value Reference Range Interpretation Comments Calcium Lvl (test code = Calcium Lvl) 8.6 8.5-10.5 [facility]2020-10-06 08:37:00 Test Item Value Reference Range Interpretation Comments AGAP (test code = AGAP) 12.4 10.0-20.0 [facility] [id number] 08:37:00 Test Item Value Reference Range Interpretation Comments eGFR (test code = eGFR) 5 [facility] [id number] 01:30:00 Test Item Value Reference Range Interpretation Comments Color BF (test code = Light Yellow (07/13/20 Color BF) 8:30 PM) [facility] BudaTutor [id number] 01:30:00 Test Item Value Reference Range Interpretation Comments Clarity BF (test code = Clear (07/13/20 8:30 Clarity BF) PM) [facility] [id number] 01:30:00 Test Item Value Reference Range Interpretation Comments Supernat BF (test code Colorless (07/13/20 8:30 = Supernat BF) PM) [facility] [id number] 01:30:00 Test Item Value Reference Range Interpretation Comments Nucleated Cells BF (test code = 267 Nucleated Cells BF) [facility]2020-10-06 01:30:00 Test Item Value Reference Range Interpretation Comments RBC BF (test code = RBC BF) 365 [facility]2020-10-06 01:30:00 Test Item Value Reference Range Interpretation Comments CellCnt BF Type (test Periton (07/13/20 8:30 code = CellCnt BF Type) PM) [facility] [id number] 01:30:00 Test Item Value Reference Range Interpretation Comments Neutrophils BF (test code = Neutrophils 23 BF) [facility]2020-10-06 01:30:00 Test Item Value Reference Range Interpretation Comments Lymph BF (test code = Lymph BF) 16 [facility]2020-10-06 01:30:00 Test Item Value Reference Range Interpretation Comments Macrophage BF (test code = Macrophage 53 BF) [facility]2020-10-06 01:30:00 Test Item Value Reference Range Interpretation Comments Eos BF (test code = Eos BF) 6 [facility] [id number] 01:30:00 Test Item Value Reference Range Interpretation Comments Meso BF (test code = Meso BF) 2 [facility] BudaGram Stain [id number] 01:30:00 Test Item Value Reference Range Interpretation Comments Gram Stain Report Few WBC's No Organisms (test code = Gram Seen Stain Report) [facility]annCulture: Aspirate/Body Fluid/[id number] 01:30:00 Test Item Value Reference Range Interpretation Comments Culture: Aspirate/Body Fluid/Tissue No Growth (test code = Culture: Aspirate/Body Fluid/Tissue) [facility] HospitalTivity [id number] 08:35:00 Test Item Value Reference Range Interpretation Comments Glucose Lvl (test code = Glucose Lvl) 113 70-99 [facility] [id number] 08:35:00 Test Item Value Reference Range Interpretation Comments BUN (test code = BUN) 29 7-22 [facility] [id number] 08:35:00 Test Item Value Reference Range Interpretation Comments Creatinine Lvl (test code = Creatinine 9.77 0.50-1.40 Lvl) [facility] HospitalUndertoneSAMPSON REGIONAL MEDICAL [id number] 08:35:00 Test Item Value Reference Range Interpretation Comments Sodium Lvl (test code = Sodium Lvl) 133 135-145 [facility] HospitalT[facility] [id number] 08:35:00 Test Item Value Reference Range Interpretation Comments Potassium Lvl (test code = Potassium 3.4 3.5-5.1 Lvl) [facility] [id number] 08:35:00 Test Item Value Reference Range Interpretation Comments Chloride Lvl (test code = Chloride Lvl) 97 95-109 [facility] [id number] 08:35:00 Test Item Value Reference Range Interpretation Comments CO2 (test code = CO2) 31 24-32 [facility] [id number] 08:35:00 Test Item Value Reference Range Interpretation Comments Calcium Lvl (test code = Calcium Lvl) 8.8 8.5-10.5 [facility] [id number] 08:35:00 Test Item Value Reference Range Interpretation Comments AGAP (test code = AGAP) 8.4 10.0-20.0 [facility] [id number] 08:35:00 Test Item Value Reference Range Interpretation Comments eGFR (test code = eGFR) 5 [facility]udaTutor [id number] 00:15:00 Test Item Value Reference Range Interpretation Comments Color BF (test code = Light Yellow (07/12/20 Color BF) 7:15 PM) [facility] HospitalROME [id number] 00:15:00 Test Item Value Reference Range Interpretation Comments Clarity BF (test code = Clear (07/12/20 7:15 Clarity BF) PM) [facility] HospitalROME [id number] 00:15:00 Test Item Value Reference Range Interpretation Comments Supernat BF (test code Colorless (07/12/20 7:15 = Supernat BF) PM) [facility] HospitalROME [id number] 00:15:00 Test Item Value Reference Range Interpretation Comments Nucleated Cells BF (test code = 227 Nucleated Cells BF) [facility] HospitalROME [id number] 00:15:00 Test Item Value Reference Range Interpretation Comments RBC BF (test code = RBC BF) 247 [facility] [id number] 00:15:00 Test Item Value Reference Range Interpretation Comments Neutrophils BF (test code = Neutrophils 27 BF) [facility]annB[facility] [id number] 00:15:00 Test Item Value Reference Range Interpretation Comments Lymph BF (test code = Lymph BF) 15 [facility]annB[facility] [id number] 00:15:00 Test Item Value Reference Range Interpretation Comments Macrophage BF (test code = Macrophage 52 BF) [facility]annB[facility] [id number] 00:15:00 Test Item Value Reference Range Interpretation Comments Eos BF (test code = Eos BF) 3 [facility]annBODY [id number] 00:15:00 Test Item Value Reference Range Interpretation Comments Meso BF (test code = Few (07/12/20 7:15 PM) Meso BF) [facility] HospitalannFORSY[facility] [id number] 00:15:00 Test Item Value Reference Range Interpretation Comments Other BF (test code = See Note 4(07/12/20 Other BF) 7:15 PM) [facility] HospitalannBODY [id number] 00:15:00 Test Item Value Reference Range Interpretation Comments CellCnt BF Type (test Periton (07/12/20 7:15 code = CellCnt BF Type) PM) [facility] BudaGram Stain [id number] 00:15:00 Test Item Value Reference Range Interpretation Comments Gram Stain Report Rare WBC's No Organisms (test code = Gram Seen Stain Report) [facility] BudaCulture: Aspirate/Body Fluid/[id number] 00:15:00 Test Item Value Reference Range Interpretation Comments Culture: Aspirate/Body Fluid/Tissue No Growth (test code = Culture: Aspirate/Body Fluid/Tissue) [facility] H[id number] 09:50:00 Test Item Value Reference Range Interpretation Comments Segs (test code = Segs) 74.0 45.0-75.0 [facility] HospitalGrcncnmMWYAUGPRUE5594-11-20 09:50:00 Test Item Value Reference Range Interpretation Comments Lymphocytes (test code = Lymphocytes) 14.8 20.0-40.0 [facility] HospitalSrfjdihZSNLZQFTLE9221-21-26 09:50:00 Test Item Value Reference Range Interpretation Comments Monocytes (test code = Monocytes) 7.1 2.0-12.0 [facility] [id number] 09:50:00 Test Item Value Reference Range Interpretation Comments Eosinophils (test code = 3.5 See_Comment [A utomated message] The Eosinophils) system which ge nerated this result tra nsmitted reference range : <=4.0. The reference r yared was not used to int erpret this result as normal/abnormal . [facility] Tex[id number] 09:50:00 Test Item Value Reference Range Interpretation Comments Basophils (test code = 0.6 See_Comment [Aut omated message] The Basophils) system which ge nerated this result tra nsmitted reference range : <=1.0. The reference r yared was not used to int erpret this result as normal/abnormal . [place] [id number] 09:50:00 Test Item Value Reference Range Interpretation Comments Neutrophils # (test code = Neutrophils 4.9 1.5-8.1 #) [facility] TexasXbfzqjnXFDQAAYQYT8456-02-45 09:50:00 Test Item Value Reference Range Interpretation Comments Lymphocytes # (test code = Lymphocytes 1.0 1.0-5.5 #) [facility] TexasNrzvxbjNOKCKXSKSN2376-50-17 09:50:00 Test Item Value Reference Range Interpretation Comments Monocytes # (test code 0.5 See_Comment [Aut omated message] The = Monocytes #) system which generated this result tra nsmitted reference range : <=0.8. The reference r yared was not used to int erpret this result as normal/abnormal . [facility] TexasGjvrdaiLJUWQXVSHQ1097-07-07 09:50:00 Test Item Value Reference Range Interpretation Comments Eosinophils # (test code 0.2 See_Comment [A utomated message] The = Eosinophils #) system whic h generated this result tra nsmitted reference range : <=0.5. The reference r yared was not used to int erpret this result as normal/abnormal . [facility] TexasUdbugkyXSNHCXUBRO7639-90-96 09:50:00 Test Item Value Reference Range Interpretation Comments WBC (test code = WBC) 6.7 3.7-10.4 [place] 676690-10-04 09:50:00 Test Item Value Reference Range Interpretation Comments RBC (test code = RBC) 2.86 4.70-6.10 [facility]BvwhiunXNSYGJNGEU4526-96-44 09:50:00 Test Item Value Reference Range Interpretation Comments Hgb (test code = Hgb) 8.3 14.0-18.0 [facility] HospitalWjkisvaJTDBQYBPZU0858-58-91 09:50:00 Test Item Value Reference Range Interpretation Comments Hct (test code = Hct) 24.4 42.0-54.0 [facility] HospitalPcufkgmINADHSLYXQ2338-96-42 09:50:00 Test Item Value Reference Range Interpretation Comments MCV (test code = MCV) 85.1 80.0-94.0 [facility] HospitalVecrblqGEYRBLUAHN9418-28-81 09:50:00 Test Item Value Reference Range Interpretation Comments MCH (test code = MCH) 29.0 pg 27.0-31.0 [facility] TexasWkgizgpQYGIRHCWLQ3340-81-42 09:50:00 Test Item Value Reference Range Interpretation Comments MCHC (test code = MCHC) 34.1 32.0-36.0 [facility] TexasZpinzkxMYYUWJVXXW2464-96-10 09:50:00 Test Item Value Reference Range Interpretation Comments RDW (test code = RDW) 14.1 11.5-14.5 [facility] HospitalRwwnxkoDLQVJAHLAF9601-15-08 09:50:00 Test Item Value Reference Range Interpretation Comments Platelet (test code = Platelet) 209 133-450 [facility] TexasMijlvkzYITLMSEBII5472-04-94 09:50:00 Test Item Value Reference Range Interpretation Comments MPV (test code = MPV) 6.6 7.4-10.4 [facility] BudaYsatilzQDMDSXPSFT6096-37-07 09:50:00 Test Item Value Reference Range Interpretation Comments Vanco Lvl (test code = Vanco Lvl) 13.1 [facility]2020-10-04 00:50:00 Test Item Value Reference Range Interpretation Comments Color BF (test code = Light Yellow (07/11/20 Color BF) 7:50 PM) [facility]2020-10-04 00:50:00 Test Item Value Reference Range Interpretation Comments Clarity BF (test code = Slight Cloudy (07/11/20 Clarity BF) 7:50 PM) [facility]2020-10-04 00:50:00 Test Item Value Reference Range Interpretation Comments Supernat BF (test code Colorless (07/11/20 7:50 = Supernat BF) PM) [facility] [id number] 00:50:00 Test Item Value Reference Range Interpretation Comments Nucleated Cells BF (test code = 474 Nucleated Cells BF) [facility]2020-10-04 00:50:00 Test Item Value Reference Range Interpretation Comments RBC BF (test code = RBC BF) 79 [facility] [id number] 00:50:00 Test Item Value Reference Range Interpretation Comments Neutrophils BF (test code = Neutrophils 53 BF) [facility]2020-10-04 00:50:00 Test Item Value Reference Range Interpretation Comments Lymph BF (test code = Lymph BF) 10 [facility] [id number] 00:50:00 Test Item Value Reference Range Interpretation Comments Macrophage BF (test code = Macrophage 33 BF) [facility]2020-10-04 00:50:00 Test Item Value Reference Range Interpretation Comments Eos BF (test code = Eos BF) 3 [facility] [id number] 00:50:00 Test Item Value Reference Range Interpretation Comments Meso BF (test code = Meso BF) 1 [facility] [id number] 00:50:00 Test Item Value Reference Range Interpretation Comments CellCnt BF Type (test Periton (07/11/20 7:50 code = CellCnt BF Type) PM) [facility] TexasPrlajolNDDYZUEIBI8200-93-54 08:20:00 Test Item Value Reference Range Interpretation Comments WBC (test code = WBC) 6.2 3.7-10.4 [facility] HospitalTbsmfkoMZHZJABITO3371-08-40 08:20:00 Test Item Value Reference Range Interpretation Comments RBC (test code = RBC) 2.74 4.70-6.10 [facility] HospitalRfstepxQMHKGVLPTO4118-86-55 08:20:00 Test Item Value Reference Range Interpretation Comments Hgb (test code = Hgb) 8.0 14.0-18.0 [facility] HospitalMfwtrfsPQRJTVKIPO3228-98-33 08:20:00 Test Item Value Reference Range Interpretation Comments Hct (test code = Hct) 23.1 42.0-54.0 [facility] HospitalGfmumnqMGCCVWKMYI4662-85-99 08:20:00 Test Item Value Reference Range Interpretation Comments MCV (test code = MCV) 84.4 80.0-94.0 [place] 676690-10-03 08:20:00 Test Item Value Reference Range Interpretation Comments MCH (test code = MCH) 29.2 pg 27.0-31.0 [place] 676690-10-03 08:20:00 Test Item Value Reference Range Interpretation Comments MCHC (test code = MCHC) 34.7 32.0-36.0 [facility] TexasUsftedpGWOETUJXQN1179-08-12 08:20:00 Test Item Value Reference Range Interpretation Comments RDW (test code = RDW) 13.9 11.5-14.5 [place] [address]-10-03 08:20:00 Test Item Value Reference Range Interpretation Comments Platelet (test code = Platelet) 199 133-450 [facility] TexasPlwxlhnPBJGKQXRMT9307-86-07 08:20:00 Test Item Value Reference Range Interpretation Comments MPV (test code = MPV) 6.8 7.4-10.4 [facility] TexasPkhbkwlFSFUMUCQDQ8518-09-61 08:20:00 Test Item Value Reference Range Interpretation Comments Segs (test code = Segs) 74.0 45.0-75.0 [place] 676690-10-03 08:20:00 Test Item Value Reference Range Interpretation Comments Lymphocytes (test code = Lymphocytes) 13.2 20.0-40.0 [place] [address]-10-03 08:20:00 Test Item Value Reference Range Interpretation Comments Monocytes (test code = Monocytes) 9.1 2.0-12.0 [facility] TexasTpoowyjJGFDHLWSQL2431-65-22 08:20:00 Test Item Value Reference Range Interpretation Comments Eosinophils (test code = 3.2 See_Comment [A utomated message] The Eosinophils) system which ge nerated this result tra nsmitted reference range : <=4.0. The reference r yared was not used to int erpret this result as normal/abnormal . [place] [address]-10-03 08:20:00 Test Item Value Reference Range Interpretation Comments Basophils (test code = 0.5 See_Comment [Aut omated message] The Basophils) system which ge nerated this result tra nsmitted reference range : <=1.0. The reference r yared was not used to int erpret this result as normal/abnormal . [place] [address]-10-03 08:20:00 Test Item Value Reference Range Interpretation Comments Neutrophils # (test code = Neutrophils 4.6 1.5-8.1 #) [facility] TexasDakwpnbMRXAZOTYJJ3415-82-04 08:20:00 Test Item Value Reference Range Interpretation Comments Lymphocytes # (test code = Lymphocytes 0.8 1.0-5.5 #) [facility] TexasTlngizrZUSFMBGCYO3869-22-96 08:20:00 Test Item Value Reference Range Interpretation Comments Monocytes # (test code 0.6 See_Comment [Aut omated message] The = Monocytes #) system which generated this result tra nsmitted reference range : <=0.8. The reference r yared was not used to int erpret this result as normal/abnormal . [facility] TexasIylvzqtBAXKZAJGPK7056-78-63 08:20:00 Test Item Value Reference Range Interpretation Comments Eosinophils # (test code 0.2 See_Comment [A utomated message] The = Eosinophils #) system whic h generated this result tra nsmitted reference range : <=0.5. The reference r yared was not used to int erpret this result as normal/abnormal . [facility] TexasPxkbiboDGJTJZCDCF9573-78-05 14:52:00 Test Item Value Reference Range Interpretation Comments WBC (test code = WBC) 6.6 3.7-10.4 [place] 676690-10-02 14:52:00 Test Item Value Reference Range Interpretation Comments RBC (test code = RBC) 2.76 4.70-6.10 [facility] TexasWsxgwgwTDOUOOHTWT3430-48-96 14:52:00 Test Item Value Reference Range Interpretation Comments Hgb (test code = Hgb) 8.1 14.0-18.0 [place] 676690-10-02 14:52:00 Test Item Value Reference Range Interpretation Comments Hct (test code = Hct) 23.3 42.0-54.0 [place] 676690-10-02 14:52:00 Test Item Value Reference Range Interpretation Comments MCV (test code = MCV) 84.2 80.0-94.0 [place] 676690-10-02 14:52:00 Test Item Value Reference Range Interpretation Comments MCH (test code = MCH) 29.3 pg 27.0-31.0 [place] 676690-10-02 14:52:00 Test Item Value Reference Range Interpretation Comments MCHC (test code = MCHC) 34.8 32.0-36.0 [facility] TexasMegprvuUOSZZWCNQA7540-52-62 14:52:00 Test Item Value Reference Range Interpretation Comments RDW (test code = RDW) 13.7 11.5-14.5 [place] [address]-10-02 14:52:00 Test Item Value Reference Range Interpretation Comments Platelet (test code = Platelet) 203 133-450 [place] 676690-10-02 14:52:00 Test Item Value Reference Range Interpretation Comments MPV (test code = MPV) 6.6 7.4-10.4 [place] [address]-10-02 14:52:00 Test Item Value Reference Range Interpretation Comments RBC Morph (test code = Normal (07/10/20 9:52 RBC Morph) AM) [place] [address]-10-02 14:52:00 Test Item Value Reference Range Interpretation Comments Plt Morph (test code = Normal (07/10/20 9:52 Plt Morph) AM) [place] [address]-10-02 14:52:00 Test Item Value Reference Range Interpretation Comments Segs (test code = Segs) 76.0 45.0-75.0 [place] [address]-10-02 14:52:00 Test Item Value Reference Range Interpretation Comments Lymphocytes (test code = Lymphocytes) 11.5 20.0-40.0 [place] [address]-10-02 14:52:00 Test Item Value Reference Range Interpretation Comments Monocytes (test code = Monocytes) 8.9 2.0-12.0 [place] [address]-10-02 14:52:00 Test Item Value Reference Range Interpretation Comments Eosinophils (test code = 3.1 See_Comment [A utomated message] The Eosinophils) system which ge nerated this result tra nsmitted reference range : <=4.0. The reference r yared was not used to int erpret this result as normal/abnormal . [place] [id number] 14:52:00 Test Item Value Reference Range Interpretation Comments Basophils (test code = 0.5 See_Comment [Aut omated message] The Basophils) system which ge nerated this result tra nsmitted reference range : <=1.0. The reference r yared was not used to int erpret this result as normal/abnormal . [place] 676690-10-02 14:52:00 Test Item Value Reference Range Interpretation Comments Neutrophils # (test code = Neutrophils 5.1 1.5-8.1 #) [place] 676690-10-02 14:52:00 Test Item Value Reference Range Interpretation Comments Lymphocytes # (test code = Lymphocytes 0.8 1.0-5.5 #) [place] 676690-10-02 14:52:00 Test Item Value Reference Range Interpretation Comments Monocytes # (test code 0.6 See_Comment [Aut omated message] The = Monocytes #) system which generated this result tra nsmitted reference range : <=0.8. The reference r yared was not used to int erpret this result as normal/abnormal . [place] [address]-10-02 14:52:00 Test Item Value Reference Range Interpretation Comments Eosinophils # (test code 0.2 See_Comment [A utomated message] The = Eosinophils #) system whic h generated this result tra nsmitted reference range : <=0.5. The reference r yared was not used to int erpret this result as normal/abnormal . [place] 957540-10-01 14:49:00 Test Item Value Reference Range Interpretation Comments Total Protein (test code = Total 5.2 6.4-8.4 Protein) [place] [address]-10-01 14:49:00 Test Item Value Reference Range Interpretation Comments Albumin Lvl (test code = Albumin Lvl) 1.5 3.5-5.0 [place] 957540-10-01 14:49:00 Test Item Value Reference Range Interpretation Comments ALT (test code = ALT) 13 See_Comment [Auto mated message] The system which ge nerated this result transmit emerson reference range : <=65. The reference range was not used to interpr et this result as erinn l/abnormal. [place] [address]-10-01 14:49:00 Test Item Value Reference Range Interpretation Comments AST (test code = AST) 11 See_Comment [Auto mated message] The system which ge nerated this result transmit emerson reference range : <=37. The reference range was not used to interpr et this result as erinn l/abnormal. [facility]2020-10-01 14:49:00 Test Item Value Reference Range Interpretation Comments Alk Phos (test code = Alk Phos) 75 39-136 [facility]2020-10-01 14:49:00 Test Item Value Reference Range Interpretation Comments Bili Total (test code = Bili Total) 0.4 0.2-1.3 [facility] [id number] 14:49:00 Test Item Value Reference Range Interpretation Comments B/C Ratio (test code = B/C Ratio) 4 1 6-25 [facility] [id number] 14:49:00 Test Item Value Reference Range Interpretation Comments Globulin (test code = Globulin) 3.7 2.7-4.2 [facility]2020-10-01 14:49:00 Test Item Value Reference Range Interpretation Comments A/G Ratio (test code = A/G Ratio) 0.4 1 0.7-1.6 [facility]2020-10-01 14:49:00 Test Item Value Reference Range Interpretation Comments Phosphorus (test code = Phosphorus) 4.1 2.5-4.5 [facility]udaOzukxxdNUIUVFSJPR6940-64-13 09:57:00 Test Item Value Reference Range Interpretation Comments Vanco Lvl (test code = Vanco Lvl) 15.9 [facility]whhlzpMJVFOSUFLU2011-92-36 18:59:00 Test Item Value Reference Range Interpretation Comments Vanco Lvl (test code = Vanco Lvl) 15.4 [facility] [id number] 15:00:00 Test Item Value Reference Range Interpretation Comments Gram Stain Report No Organisms Seen Few (test code = Gram WBC's Stain Report[facility]/Body Fluid/[id number] 15:00:00 Test Item Value Reference Range Interpretation Comments Culture: Aspirate/Body Fluid/Tissue No Growth (test code = Culture: Aspirate/Body Fluid/Tissue) [facility] St[facility] [id number] 15:00:00 Test Item Value Reference Range Interpretation Comments Gram Stain Report Many WBC's No Organisms (test code = Gram Seen Stain Report) [facility]Culture: Aspirate/Body Fluid/[id number] 15:00:00 Test Item Value Reference Range Interpretation Comments Culture: Aspirate/Body Fluid/Tissue No Growth (test code = Culture: Aspirate/Body Fluid/Tissue) [facility] HospitalUndertoneGram Stain [id number] 13:30:00 Test Item Value Reference Range Interpretation Comments Gram Stain Report No Organisms Seen Many (test code = Gram WBC's Stain Report) [facility]uda[facility]: Aspirate/Body Fluid/[id number] 13:30:00 Test Item Value Reference Range Interpretation Comments Culture: Aspirate/Body Fluid/Tissue No Growth (test code = Culture: Aspirate/Body Fluid/Tissue) [facility] HospitalBeliefNetworks [id number] 11:40:00 Test Item Value Reference Range Interpretation Comments ABO/Rh (test code = ABO/Rh) O POS [facility] [employer] [id number] 11:40:00 Test Item Value Reference Range Interpretation Comments Antibody Scrn (test Negative (07/06/20 6:40 code = Antibody Scrn) AM) [facility] HospitalUndertoneCARDIAC [id number] 11:07:00 Test Item Value Reference Range Interpretation Comments Troponin-I (test code no gt See_Comment [Auto mated message] The = Troponin-I) system which g enerated this result transmit emerson reference range : <=0.40. The reference r yared was not used to interpr et this result as erinn l/abnormal. [facility] [employer] [id number] 11:07:00 Test Item Value Reference Range Interpretation Comments Magnesium Lvl (test code = Magnesium 1.8 1.8-2.4 Lvl) [facility] [employer] [id number] 11:07:00 Test Item Value Reference Range Interpretation Comments Phosphorus (test code = Phosphorus) 5.3 2.5-4.5 [facility] [employer] [id number] 11:07:00 Test Item Value Reference Range Interpretation Comments Lipase Lvl (test code = Lipase Lvl) 48 73-393 [facility] [employer] [id number] 11:07:00 Test Item Value Reference Range Interpretation Comments Total Protein (test code = Total 5.3 6.4-8.4 Protein) [facility] [employer] [id number] 11:07:00 Test Item Value Reference Range Interpretation Comments Albumin Lvl (test code = Albumin Lvl) 1.6 3.5-5.0 [place] [id number] 11:07:00 Test Item Value Reference Range Interpretation Comments Globulin (test code = Globulin) 3.7 2.7-4.2 [place] 957540-09-28 11:07:00 Test Item Value Reference Range Interpretation Comments A/G Ratio (test code = A/G Ratio) 0.4 1 0.7-1.6 [facility] [id number] 11:07:00 Test Item Value Reference Range Interpretation Comments ALT (test code = ALT) 12 See_Comment [Auto mated message] The system which ge nerated this result transmit emerson reference range : <=65. The reference range was not used to interpr et this result as erinn l/abnormal. [facility] [id number] 11:07:00 Test Item Value Reference Range Interpretation Comments AST (test code = AST) 13 See_Comment [Auto mated message] The system which ge nerated this result transmit emerson reference range : <=37. The reference range was not used to interpr et this result as erinn l/abnormal. [facility] [id number] 11:07:00 Test Item Value Reference Range Interpretation Comments Alk Phos (test code = Alk Phos) 67 39-136 [facility] HospitalT[facility] [id number] 11:07:00 Test Item Value Reference Range Interpretation Comments Bili Total (test code = Bili Total) 0.6 0.2-1.3 [place] 957540-09-28 11:07:00 Test Item Value Reference Range Interpretation Comments Bili Direct (test code no gt See_Comment [Aut omated message] The = Bili Direct) system which generated this result tra nsmitted reference range : <=0.3. The reference r yared was not used to int erpret this result as erinn l/abnormal. [facility] HospitalT[facility] [id number] 11:07:00 Test Item Value Reference Range Interpretation Comments Bili Indirect Unable to See_Comment [Automated (test code = Bili Calculate message] T he system Indirect) which generated this result transmitted reference range : <=1.0. The reference range was not used to interpret this result as normal/abnormal . [facility] HospitalT[facility] [id number] 11:07:00 Test Item Value Reference Range Interpretation Comments Lactic Acid Lvl (test code = Lactic 0.6 0.5-2.2 Acid Lvl) [facility] TexasYilefpoKEYJKASCON4090-38-74 11:07:00 Test Item Value Reference Range Interpretation Comments PTT (test code = PTT) 40.6 s 22.9-35.8 [facility] [id number] 11:07:00 Test Item Value Reference Range Interpretation Comments PT (test code = PT) 14.0 s 12.0-14.7 [place] [id number] 11:07:00 Test Item Value Reference Range Interpretation Comments INR (test code = INR) 1.08 1 0.85-1.17 [facility]2020-08-13 13:56:00 Test Item Value Reference Range Interpretation Comments Glucose Lvl (test code = Glucose Lvl) 97 70-99 [facility]2020-08-13 13:56:00 Test Item Value Reference Range Interpretation Comments BUN (test code = BUN) 41 7-22 [place] 957540-08-13 13:56:00 Test Item Value Reference Range Interpretation Comments Creatinine Lvl (test code = Creatinine 10.50 0.50-1.40 Lvl) [facility]2020-08-13 13:56:00 Test Item Value Reference Range Interpretation Comments Sodium Lvl (test code = Sodium Lvl) 133 135-145 [place] 957540-08-13 13:56:00 Test Item Value Reference Range Interpretation Comments Potassium Lvl (test code = Potassium 3.2 3.5-5.1 Lvl) [facility]2020-08-13 13:56:00 Test Item Value Reference Range Interpretation Comments Chloride Lvl (test code = Chloride Lvl) 94 95-109 [facility]2020-08-13 13:56:00 Test Item Value Reference Range Interpretation Comments CO2 (test code = CO2) 28 24-32 [facility]2020-08-13 13:56:00 Test Item Value Reference Range Interpretation Comments Calcium Lvl (test code = Calcium Lvl) 9.5 8.5-10.5 [place] 957540-08-13 13:56:00 Test Item Value Reference Range Interpretation Comments AGAP (test code = AGAP) 14.2 10.0-20.0 [place] [address]-08-13 13:56:00 Test Item Value Reference Range Interpretation Comments eGFR (test code = eGFR) 5 [place] [address]-08-13 13:56:00 Test Item Value Reference Range Interpretation Comments Total Protein (test code = Total 5.4 6.4-8.4 Protein) [place] [address]-08-13 13:56:00 Test Item Value Reference Range Interpretation Comments Albumin Lvl (test code = Albumin Lvl) 2.3 3.5-5.0 [place] [address]-08-13 13:56:00 Test Item Value Reference Range Interpretation Comments ALT (test code = ALT) 16 See_Comment [Auto mated message] The system which ge nerated this result transmit emerson reference range : <=65. The reference range was not used to interpr et this result as erinn l/abnormal. [place] [address]-08-13 13:56:00 Test Item Value Reference Range Interpretation Comments AST (test code = AST) 26 See_Comment [Auto mated message] The system which ge nerated this result transmit emerson reference range : <=37. The reference range was not used to interpr et this result as erinn l/abnormal. [place] 957540-08-13 13:56:00 Test Item Value Reference Range Interpretation Comments Alk Phos (test code = Alk Phos) 82 39-136 [place] [address]-08-13 13:56:00 Test Item Value Reference Range Interpretation Comments Bili Total (test code = Bili Total) 0.4 0.2-1.3 [place] [address]-08-13 13:56:00 Test Item Value Reference Range Interpretation Comments Bili Direct (test code 0.1 See_Comment [Aut omated message] The = Bili Direct) system which generated this result tra nsmitted reference range : <=0.3. The reference r yared was not used to int erpret this result as erinn l/abnormal. [facility] [id number] 13:56:00 Test Item Value Reference Range Interpretation Comments Bili Indirect (test 0.3 See_Comment [Automa emerson message] The code = Bili Indirect) system which generated this result tra nsmitted reference range : <=1.0. The reference r yared was not used to int erpret this result as normal/abnormal . [facility]2020-08-13 13:56:00 Test Item Value Reference Range Interpretation Comments Globulin (test code = Globulin) 3.1 2.7-4.2 [place] 957540-08-13 13:56:00 Test Item Value Reference Range Interpretation Comments A/G Ratio (test code = A/G Ratio) 0.7 1 0.7-1.6 [facility]2020-08-13 13:56:00 Test Item Value Reference Range Interpretation Comments Lipase Lvl (test code = Lipase Lvl) 41 73-393 [facility] [id number] 13:56:00 Test Item Value Reference Range Interpretation Comments WBC (test code = WBC) 5.3 3.7-10.4 [place] [address]-08-13 13:56:00 Test Item Value Reference Range Interpretation Comments RBC (test code = RBC) 2.56 4.70-6.10 [place] [address]-08-13 13:56:00 Test Item Value Reference Range Interpretation Comments Hgb (test code = Hgb) 7.6 14.0-18.0 [facility] TexasFakkqojAIZABIWIEK3509-41-21 13:56:00 Test Item Value Reference Range Interpretation Comments Hct (test code = Hct) 21.8 42.0-54.0 [place] [address]-08-13 13:56:00 Test Item Value Reference Range Interpretation Comments MCV (test code = MCV) 85.2 80.0-94.0 [place] [address]-08-13 13:56:00 Test Item Value Reference Range Interpretation Comments MCH (test code = MCH) 29.6 pg 27.0-31.0 [place] [address]-08-13 13:56:00 Test Item Value Reference Range Interpretation Comments MCHC (test code = MCHC) 34.8 32.0-36.0 [place] [address]-08-13 13:56:00 Test Item Value Reference Range Interpretation Comments RDW (test code = RDW) 13.9 11.5-14.5 [place] 676690-08-13 13:56:00 Test Item Value Reference Range Interpretation Comments Platelet (test code = Platelet) 170 133-450 [facility] TexasRqaavumVMMVWWZOFH0254-30-19 13:56:00 Test Item Value Reference Range Interpretation Comments MPV (test code = MPV) 7.1 7.4-10.4 [facility] TexasLocaivbLMKYATINXJ3790-16-86 13:56:00 Test Item Value Reference Range Interpretation Comments Segs (test code = Segs) 67.4 45.0-75.0 [facility] TexasFgsylnrOIMQKZJEVQ4868-09-12 13:56:00 Test Item Value Reference Range Interpretation Comments Lymphocytes (test code = Lymphocytes) 15.2 20.0-40.0 [facility] TexasVlsbnfyLHTQNXHJGH4014-45-19 13:56:00 Test Item Value Reference Range Interpretation Comments Monocytes (test code = Monocytes) 8.6 2.0-12.0 [facility] TexasOmlobqdSCVLMNRBZH2651-50-69 13:56:00 Test Item Value Reference Range Interpretation Comments Eosinophils (test code = 7.8 See_Comment [A utomated message] The Eosinophils) system which ge nerated this result tra nsmitted reference range : <=4.0. The reference r yared was not used to int erpret this result as normal/abnormal . [facility] TexasFvsiqbvRNFEZHNQSV8991-93-49 13:56:00 Test Item Value Reference Range Interpretation Comments Basophils (test code = 1.0 See_Comment [Aut omated message] The Basophils) system which ge nerated this result tra nsmitted reference range : <=1.0. The reference r yared was not used to int erpret this result as normal/abnormal . [facility] TexasWdyafoaQPGJCEAYHQ7980-26-76 13:56:00 Test Item Value Reference Range Interpretation Comments Neutrophils # (test code = Neutrophils 3.6 1.5-8.1 #) [facility] TexasDyxlliwHEUQVKPFCO7093-11-86 13:56:00 Test Item Value Reference Range Interpretation Comments Lymphocytes # (test code = Lymphocytes 0.8 1.0-5.5 #) [facility] TexasGrlugqeUCPBPOWDIU0382-02-12 13:56:00 Test Item Value Reference Range Interpretation Comments Monocytes # (test code 0.5 See_Comment [Aut omated message] The = Monocytes #) system which generated this result tra nsmitted reference range : <=0.8. The reference r yared was not used to int erpret this result as normal/abnormal . [facility] HospitalNpcgyuyZQHHFFKQQU9397-19-59 13:56:00 Test Item Value Reference Range Interpretation Comments Eosinophils # (test code 0.4 See_Comment [A utomated message] The = Eosinophils #) system whic h generated this result tra nsmitted reference range : <=0.5. The reference r yraed was not used to int erpret this result as normal/abnormal . [facility] HospitalBmtxaciYZRAECBCTS6578-84-03 13:56:00 Test Item Value Reference Range Interpretation Comments Basophils # (test code 0.1 See_Comment [Aut omated message] The = Basophils #) system which generated this result tra nsmitted reference range : <=0.2. The reference r yared was not used to int erpret this result as normal/abnormal . [employer] [id number] 06:28:00 Test Item Value Reference Range Interpretation Comments ABO/Rh (test code = ABO/Rh) O POS [facility] [id number] 06:28:00 Test Item Value Reference Range Interpretation Comments Antibody Scrn (test Negative (03/23/20 1:28 code = Antibody Scrn) AM) [facility] [id number] 06:23:00 Test Item Value Reference Range Interpretation Comments RBC product (test code Product available = RBC product) 2(03/23/20 1:23 AM) [facility] [employer]2020-06-15 06:08:00 Test Item Value Reference Range Interpretation Comments RBC BF (test code = RBC BF) [id number] [facility] [employer]2020-06-15 06:08:00 Test Item Value Reference Range Interpretation Comments Nucleated Cells BF (test code = 1316 Nucleated Cells BF) [facility] [employer]2020-06-15 06:08:00 Test Item Value Reference Range Interpretation Comments Neutrophils BF (test code = Neutrophils 37 BF) [facility] [employer]2020-06-15 06:08:00 Test Item Value Reference Range Interpretation Comments Lymph BF (test code = Lymph BF) 4 [facility] HospitalROME CorporationEQSFWY8303-65-31 06:08:00 Test Item Value Reference Range Interpretation Comments Macrophage BF (test code = Macrophage 54 BF) [facility] [employer]2020-06-15 06:08:00 Test Item Value Reference Range Interpretation Comments Eos BF (test code = Eos BF) 3 [facility] HospitalPrezi [id number] 06:08:00 Test Item Value Reference Range Interpretation Comments Meso BF (test code = Meso BF) 2 [facility]udaTom[facility] [id number] 06:08:00 Test Item Value Reference Range Interpretation Comments Clarity BF (test code = Bloody *ABN*(03/23/20 Clarity BF) 1:08 AM) [facility] HospitalPrezi [id number] 06:08:00 Test Item Value Reference Range Interpretation Comments Color BF (test code = Red *ABN*(03/23/20 1:08 Color BF) AM) [facility] HospitalPrezi [id number] 06:08:00 Test Item Value Reference Range Interpretation Comments Supernat BF (test code = Yellow *ABN*(03/23/20 Supernat BF) 1:08 AM) [facility] HospitalPre[facility] [id number] 06:08:00 Test Item Value Reference Range Interpretation Comments CellCnt BF Type (test Periton (03/23/20 1:08 code = CellCnt BF Type) AM) [facility] [employer] [id number] 06:08:00 Test Item Value Reference Range Interpretation Comments Glucose Lvl (test code = Glucose Lvl) 98 70-99 [facility] [employer] [id number] 06:08:00 Test Item Value Reference Range Interpretation Comments BUN (test code = BUN) 81 7-22 [facility] [employer] [id number] 06:08:00 Test Item Value Reference Range Interpretation Comments Creatinine Lvl (test code = Creatinine 14.40 0.50-1.40 Lvl) [facility] [employer] [id number] 06:08:00 Test Item Value Reference Range Interpretation Comments Sodium Lvl (test code = Sodium Lvl) 129 135-145 [facility] [employer] [id number] 06:08:00 Test Item Value Reference Range Interpretation Comments Potassium Lvl (test code = Potassium 4.8 3.5-5.1 Lvl) [facility] [employer] [id number] 06:08:00 Test Item Value Reference Range Interpretation Comments Chloride Lvl (test code = Chloride Lvl) 90 95-109 [facility] [employer] [id number] 06:08:00 Test Item Value Reference Range Interpretation Comments CO2 (test code = CO2) 27 24-32 [facility] [employer] [id number] 06:08:00 Test Item Value Reference Range Interpretation Comments Calcium Lvl (test code = Calcium Lvl) 8.7 8.5-10.5 [facility] [id number] 06:08:00 Test Item Value Reference Range Interpretation Comments Total Protein (test code = Total 5.7 6.4-8.4 Protein) [facility] [id number] 06:08:00 Test Item Value Reference Range Interpretation Comments Albumin Lvl (test code = Albumin Lvl) 2.5 3.5-5.0 [facility] [employer] [id number] 06:08:00 Test Item Value Reference Range Interpretation Comments ALT (test code = ALT) 32 See_Comment [Auto mated message] The system which ge nerated this result transmit emerson reference range : <=65. The reference range was not used to interpr et this result as erinn l/abnormal. [facility] [employer] [id number] 06:08:00 Test Item Value Reference Range Interpretation Comments AST (test code = AST) 36 See_Comment [Auto mated message] The system which ge nerated this result transmit emerson reference range : <=37. The reference range was not used to interpr et this result as erinn l/abnormal. [facility] [employer] [id number] 06:08:00 Test Item Value Reference Range Interpretation Comments Alk Phos (test code = Alk Phos) 110 39-136 [facility] [employer] [id number] 06:08:00 Test Item Value Reference Range Interpretation Comments Bili Total (test code = Bili Total) 0.5 0.2-1.3 [facility] [employer] [id number] 06:08:00 Test Item Value Reference Range Interpretation Comments AGAP (test code = AGAP) 16.8 10.0-20.0 [facility] [employer] [id number] 06:08:00 Test Item Value Reference Range Interpretation Comments B/C Ratio (test code = B/C Ratio) 6 1 6-25 [facility] [employer] [id number] 06:08:00 Test Item Value Reference Range Interpretation Comments Globulin (test code = Globulin) 3.2 2.7-4.2 [facility] [employer] [id number] 06:08:00 Test Item Value Reference Range Interpretation Comments A/G Ratio (test code = A/G Ratio) 0.8 1 0.7-1.6 [facility]2020-06-15 06:08:00 Test Item Value Reference Range Interpretation Comments eGFR (test code = eGFR) 3 [facility]2020-06-15 06:08:00 Test Item Value Reference Range Interpretation Comments Lactic Acid Lvl (test code = Lactic 0.6 0.5-2.2 Acid Lvl) [facility] TexasPmfjqzdSGUOJKBQWE5344-82-82 06:08:00 Test Item Value Reference Range Interpretation Comments WBC (test code = WBC) 11.5 3.7-10.4 [facility] TexasZvomybiRUFYODITKR1790-22-65 06:08:00 Test Item Value Reference Range Interpretation Comments RBC (test code = RBC) 2.12 4.70-6.10 [facility] TexasLobgpnnYRZLFILMCF8979-87-16 06:08:00 Test Item Value Reference Range Interpretation Comments Hgb (test code = Hgb) 6.1 14.0-18.0 [place] [address]-06-15 06:08:00 Test Item Value Reference Range Interpretation Comments Hct (test code = Hct) 18.4 42.0-54.0 [facility] TexasLharerySLXDGKDBJI3422-12-97 06:08:00 Test Item Value Reference Range Interpretation Comments MCV (test code = MCV) 86.5 80.0-94.0 [place] 676690-06-15 06:08:00 Test Item Value Reference Range Interpretation Comments MCH (test code = MCH) 28.6 pg 27.0-31.0 [facility] TexasHzegehkVDJDGZCUME1454-80-89 06:08:00 Test Item Value Reference Range Interpretation Comments MCHC (test code = MCHC) 33.1 32.0-36.0 [facility] TexasRaobidrOMXLBLVXGI1377-31-37 06:08:00 Test Item Value Reference Range Interpretation Comments RDW (test code = RDW) 15.9 11.5-14.5 [facility] TexasCnlcbjjUKJJDOGCLH4842-49-86 06:08:00 Test Item Value Reference Range Interpretation Comments Platelet (test code = Platelet) 316 133-450 [facility] TexasHtztojdDQNRUELITZ5374-08-03 06:08:00 Test Item Value Reference Range Interpretation Comments MPV (test code = MPV) 6.8 7.4-10.4 [facility] TexasGyuveyqPELPUPFJNS0324-78-18 06:08:00 Test Item Value Reference Range Interpretation Comments PT (test code = PT) 13.9 s 12.0-14.7 [facility] TexasInlortqDFAHHPROUC4045-04-03 06:08:00 Test Item Value Reference Range Interpretation Comments INR (test code = INR) 1.07 1 0.85-1.17 [facility] TexasJxnpemtCWQSELZEUP0581-87-87 06:08:00 Test Item Value Reference Range Interpretation Comments RBC Morph (test code = Normal (03/23/20 1:08 RBC Morph) AM) [facility] TexasBytwebgSXMWNSYXMZ2640-01-61 06:08:00 Test Item Value Reference Range Interpretation Comments Plt Morph (test code = Normal (03/23/20 1:08 Plt Morph) AM) [facility] TexasAoaknmtIQUZGAKBLP6444-61-46 06:08:00 Test Item Value Reference Range Interpretation Comments Segs (test code = Segs) 80.9 45.0-75.0 [facility] TexasYawtfbyWJRDFRQNID5619-14-66 06:08:00 Test Item Value Reference Range Interpretation Comments Lymphocytes (test code = Lymphocytes) 9.1 20.0-40.0 [facility] TexasJnorspsELBVKBESMW1780-21-69 06:08:00 Test Item Value Reference Range Interpretation Comments Monocytes (test code = Monocytes) 7.3 2.0-12.0 [facility] TexasPgjmpbpXDDGPLTLWK7096-06-77 06:08:00 Test Item Value Reference Range Interpretation Comments Eosinophils (test code = 2.0 See_Comment [A utomated message] The Eosinophils) system which ge nerated this result tra nsmitted reference range : <=4.0. The reference r yared was not used to int erpret this result as normal/abnormal . [facility] TexasGikljyjTTXZRVRQMH5142-18-78 06:08:00 Test Item Value Reference Range Interpretation Comments Basophils (test code = 0.7 See_Comment [Aut omated message] The Basophils) system which ge nerated this result tra nsmitted reference range : <=1.0. The reference r yared was not used to int erpret this result as normal/abnormal . [facility] TexasJxdiftuCBVIOBKYOT0557-05-12 06:08:00 Test Item Value Reference Range Interpretation Comments Neutrophils # (test code = Neutrophils 9.3 1.5-8.1 #) [facility] TexasSelggxkKQRXUARFEH9930-02-83 06:08:00 Test Item Value Reference Range Interpretation Comments Lymphocytes # (test code = Lymphocytes 1.0 1.0-5.5 #) [facility] TexasMmxiehmMJXFZYTPBF2394-09-76 06:08:00 Test Item Value Reference Range Interpretation Comments Monocytes # (test code 0.8 See_Comment [Aut omated message] The = Monocytes #) system which generated this result tra nsmitted reference range : <=0.8. The reference r yared was not used to int erpret this result as normal/abnormal . [facility] TexasSwkaspfMWMKQUZDOZ6120-18-77 06:08:00 Test Item Value Reference Range Interpretation Comments Eosinophils # (test code 0.2 See_Comment [A utomated message] The = Eosinophils #) system whic h generated this result tra nsmitted reference range : <=0.5. The reference r yared was not used to int erpret this result as normal/abnormal . [facility] TexasKcauqvkGEDJOPSSNY5425-79-92 06:08:00 Test Item Value Reference Range Interpretation Comments Basophils # (test code 0.1 See_Comment [Aut omated message] The = Basophils #) system which generated this result tra nsmitted reference range : <=0.2. The reference r yared was not used to int erpret this result as normal/abnormal . [facility] TexasMzppvitOTAHVDDCKZ7429-69-54 06:08:00 Test Item Value Reference Range Interpretation Comments Anisocyte (test code = 2+ *ABN*(03/23/20 Anisocyte) 1:08 AM) [facility] TexasPttlxexEPDVYDNNUX1942-42-56 06:08:00 Test Item Value Reference Range Interpretation Comments Macrocyte (test code = 1+ *ABN*(03/23/20 Macrocyte) 1:08 AM) [facility] TexasIvkqewcAAHTCCOIEZ6318-10-98 06:08:00 Test Item Value Reference Range Interpretation Comments Microcyte (test code = 1+ *ABN*(03/23/20 Microcyte) 1:08 AM) [facility] TexasOulisjxZDTFQPBATO2256-08-31 06:08:00 Test Item Value Reference Range Interpretation Comments Spherocyte (test code = Rare *ABN*(03/23/20 Spherocyte) 1:08 AM) [facility]2020-04-27 21:27:00 Test Item Value Reference Range Interpretation Comments Glucose Lvl (test code = Glucose Lvl) 85 70-99 [place] 957540-04-27 21:27:00 Test Item Value Reference Range Interpretation Comments BUN (test code = BUN) 58 7-22 [place] 957540-04-27 21:27:00 Test Item Value Reference Range Interpretation Comments Creatinine Lvl (test code = Creatinine 12.00 0.50-1.40 Lvl) [place] 957540-04-27 21:27:00 Test Item Value Reference Range Interpretation Comments Sodium Lvl (test code = Sodium Lvl) 129 135-145 [place] [address]-04-27 21:27:00 Test Item Value Reference Range Interpretation Comments Potassium Lvl (test code = Potassium 4.2 3.5-5.1 Lvl) [place] [address]-04-27 21:27:00 Test Item Value Reference Range Interpretation Comments Chloride Lvl (test code = Chloride Lvl) 92 95-109 [place] 957540-04-27 21:27:00 Test Item Value Reference Range Interpretation Comments CO2 (test code = CO2) 26 24-32 [place] [address]-04-27 21:27:00 Test Item Value Reference Range Interpretation Comments Calcium Lvl (test code = Calcium Lvl) 8.3 8.5-10.5 [facility]2020-04-27 21:27:00 Test Item Value Reference Range Interpretation Comments Total Protein (test code = Total 5.5 6.4-8.4 Protein) [place] 957540-04-27 21:27:00 Test Item Value Reference Range Interpretation Comments Albumin Lvl (test code = Albumin Lvl) 2.4 3.5-5.0 [place] 957540-04-27 21:27:00 Test Item Value Reference Range Interpretation Comments ALT (test code = ALT) 18 See_Comment [Auto mated message] The system which ge nerated this result transmit emerson reference range : <=65. The reference range was not used to interpr et this result as erinn l/abnormal. [facility] [id number] 21:27:00 Test Item Value Reference Range Interpretation Comments AST (test code = AST) 20 See_Comment [Auto mated message] The system which ge nerated this result transmit emerson reference range : <=37. The reference range was not used to interpr et this result as erinn l/abnormal. [facility] [employer] [id number] 21:27:00 Test Item Value Reference Range Interpretation Comments Alk Phos (test code = Alk Phos) 76 39-136 [facility] ZYCUC1710-33-26 21:27:00 Test Item Value Reference Range Interpretation Comments Bili Total (test code = Bili Total) 0.3 0.2-1.3 [facility] [id number] 21:27:00 Test Item Value Reference Range Interpretation Comments AGAP (test code = AGAP) 15.2 10.0-20.0 [facility] [id number] 21:27:00 Test Item Value Reference Range Interpretation Comments B/C Ratio (test code = B/C Ratio) 5 1 6-25 [facility] [id number] 21:27:00 Test Item Value Reference Range Interpretation Comments Globulin (test code = Globulin) 3.1 2.7-4.2 [facility] [id number] 21:27:00 Test Item Value Reference Range Interpretation Comments A/G Ratio (test code = A/G Ratio) 0.8 1 0.7-1.6 [facility] [id number] 21:27:00 Test Item Value Reference Range Interpretation Comments eGFR (test code = eGFR) 4 [facility] HospitalJcipbmqSWNNNQZRWD8673-46-72 21:27:00 Test Item Value Reference Range Interpretation Comments WBC (test code = WBC) 8.7 3.7-10.4 [facility] HospitalCowemehUTAMNAVYWF3563-21-59 21:27:00 Test Item Value Reference Range Interpretation Comments RBC (test code = RBC) 2.94 4.70-6.10 [facility] HospitalQtjfrsyHLTWQFGNGK6509-13-07 21:27:00 Test Item Value Reference Range Interpretation Comments Hgb (test code = Hgb) 8.4 14.0-18.0 [facility] HospitalOkbzrqdYFHDPGDRCY9032-67-32 21:27:00 Test Item Value Reference Range Interpretation Comments Hct (test code = Hct) 25.0 42.0-54.0 [facility] HospitalVvhtvjmQIOHCIDRQN5545-34-79 21:27:00 Test Item Value Reference Range Interpretation Comments MCV (test code = MCV) 84.9 80.0-94.0 [facility] TexasVbwkhcgMRLHGAQZRO1465-12-23 21:27:00 Test Item Value Reference Range Interpretation Comments MCH (test code = MCH) 28.7 pg 27.0-31.0 [place] 676690-04-27 21:27:00 Test Item Value Reference Range Interpretation Comments MCHC (test code = MCHC) 33.8 32.0-36.0 [place] 676690-04-27 21:27:00 Test Item Value Reference Range Interpretation Comments RDW (test code = RDW) 14.4 11.5-14.5 [place] 676690-04-27 21:27:00 Test Item Value Reference Range Interpretation Comments Platelet (test code = Platelet) 150 133-450 [facility] TexasQpbshchGAGUQTXAVP2710-27-70 21:27:00 Test Item Value Reference Range Interpretation Comments MPV (test code = MPV) 7.6 7.4-10.4 [place] 676690-04-27 21:27:00 Test Item Value Reference Range Interpretation Comments Neutrophils # (test code = Neutrophils 7.7 1.5-8.1 #) [facility] TexasCwfzqgqUPVXIWYDEJ7689-46-12 21:27:00 Test Item Value Reference Range Interpretation Comments Lymphocytes # (test code = Lymphocytes 0.4 1.0-5.5 #) [facility] TexasYdppdybVSZEKBKLBC3382-44-09 21:27:00 Test Item Value Reference Range Interpretation Comments Monocytes # (test code 0.3 See_Comment [Aut omated message] The = Monocytes #) system which generated this result tra nsmitted reference range : <=0.8. The reference r yared was not used to int erpret this result as normal/abnormal . [facility] TexasJfnabcdBIRRVWNPFJ5764-13-13 21:27:00 Test Item Value Reference Range Interpretation Comments Eosinophils # (test code 0.2 See_Comment [A utomated message] The = Eosinophils #) system whic h generated this result tra nsmitted reference range : <=0.5. The reference r yared was not used to int erpret this result as normal/abnormal . [facility] TexasUmvwqfkNASORELXFE9735-46-75 21:27:00 Test Item Value Reference Range Interpretation Comments Segs (test code = Segs) 86.0 45.0-75.0 [facility]MhiewsvGCOEAJKADU2005-68-02 21:27:00 Test Item Value Reference Range Interpretation Comments Bands (test code = 3.0 See_Comment [Automat ed message] The Bands) system which ge nerated this result transmit emerson reference range : <=11.0. The reference r yared was not used to interpr et this result as erinn l/abnormal. [facility] HospitalUojqnkuAULUWGAEFW9954-60-97 21:27:00 Test Item Value Reference Range Interpretation Comments Lymphocytes (test code = Lymphocytes) 3.0 20.0-40.0 [facility] HospitalJxlohimPCAKXRDLQE0300-99-68 21:27:00 Test Item Value Reference Range Interpretation Comments Monocytes (test code = Monocytes) 4.0 2.0-12.0 [facility] HospitalXsdopaoANEAPDRPAC1934-09-25 21:27:00 Test Item Value Reference Range Interpretation Comments Eosinophils (test code = 2.0 See_Comment [A utomated message] The Eosinophils) system which ge nerated this result tra nsmitted reference range : <=4.0. The reference r yared was not used to int erpret this result as normal/abnormal . [facility] HospitalEqyvnylPGEEPPKYCT1221-66-85 21:27:00 Test Item Value Reference Range Interpretation Comments Atypical Lymphs (test code = Atypical 2.0 Lymphs) [facility] TexasOhkhndkRZYSGDAZIC5544-42-03 21:27:00 Test Item Value Reference Range Interpretation Comments RBC Morph (test code = Normal (02/03/20 4:27 RBC Morph) PM) [facility] HospitalPbcmnyhGPSDKXLYYX8391-97-79 21:27:00 Test Item Value Reference Range Interpretation Comments Plt Morph (test code = Normal (02/03/20 4:27 Plt Morph) PM) [facility] TexasTomxrkrDMQPEUWYOA8592-15-01 21:27:00 Test Item Value Reference Range Interpretation Comments Anisocyte (test code = 1+ *ABN*(02/03/20 Anisocyte) 4:27 PM) [facility]udaIomhubmATEBSYEQKD7814-55-33 21:14:00 Test Item Value Reference Range Interpretation Comments Coronavirus (COVID-19) Not Detected (02/03/20 JUVENCIO (test code = 4:14 PM) Coronavirus (COVID-19) JUVENCIO) [facility]2020-01-27 18:30:00 Test Item Value Reference Range Interpretation Comments Color BF (test code = Colorless (11/04/19 12:30 Color BF) PM) [facility]2020-01-27 18:30:00 Test Item Value Reference Range Interpretation Comments Clarity BF (test code = Clear (11/04/19 12:30 Clarity BF) PM) [facility]2020-01-27 18:30:00 Test Item Value Reference Range Interpretation Comments Nucleated Cells BF (test code = 11 Nucleated Cells BF) [facility]2020-01-27 18:30:00 Test Item Value Reference Range Interpretation Comments RBC BF (test code = RBC BF) 11 [facility]2020-01-27 18:30:00 Test Item Value Reference Range Interpretation Comments Neutrophils BF (test code = Neutrophils 11 BF) [facility]2020-01-27 18:30:00 Test Item Value Reference Range Interpretation Comments Lymph BF (test code = Lymph BF) 56 [facility]2020-01-27 18:30:00 Test Item Value Reference Range Interpretation Comments Macrophage BF (test code = Macrophage 33 BF) [facility]2020-01-27 18:30:00 Test Item Value Reference Range Interpretation Comments CellCnt BF Type (test Periton (11/04/19 12:30 code = CellCnt BF Type) PM) [facility] BudaGram Stain Wciczm9562-18-76 18:30:00 Test Item Value Reference Range Interpretation Comments Gram Stain Report Rare WBC's No Organisms (test code = Gram Seen Stain Report) [facility] BudaCulture: Aspirate/Body Fluid/Ikbdmw3104-99-11 18:30:00 Test Item Value Reference Range Interpretation Comments Culture: 48 Hour Report - No Aspirate/Body Growth, Holding Fluid/Tissue (test code = Culture: Aspirate/Body Fluid/Tissue) [facility]udaThe [facility] [id number] 18:00:00 Test Item Value Reference Range Interpretation Comments Glucose Lvl (test code = Glucose Lvl) 125 70-99 [facility]udaThe [facility] [id number] 18:00:00 Test Item Value Reference Range Interpretation Comments BUN (test code = BUN) 40 7-22 [facility] [id number] 18:00:00 Test Item Value Reference Range Interpretation Comments Creatinine Lvl (test code = Creatinine 10.60 0.50-1.40 Lvl) [facility]2020-01-27 18:00:00 Test Item Value Reference Range Interpretation Comments Sodium Lvl (test code = Sodium Lvl) 141 135-145 [facility]2020-01-27 18:00:00 Test Item Value Reference Range Interpretation Comments Potassium Lvl (test code = Potassium 3.8 3.5-5.1 Lvl) [facility]2020-01-27 18:00:00 Test Item Value Reference Range Interpretation Comments Chloride Lvl (test code = Chloride Lvl) 101 95-109 [facility]2020-01-27 18:00:00 Test Item Value Reference Range Interpretation Comments CO2 (test code = CO2) 32 24-32 [facility]2020-01-27 18:00:00 Test Item Value Reference Range Interpretation Comments Calcium Lvl (test code = Calcium Lvl) 9.3 8.5-10.5 [facility]2020-01-27 18:00:00 Test Item Value Reference Range Interpretation Comments AGAP (test code = AGAP) 11.8 10.0-20.0 [facility]2020-01-27 18:00:00 Test Item Value Reference Range Interpretation Comments eGFR (test code = eGFR) 5 [facility] BudaIbhzlkaRMNJRNLTMR3848-95-50 18:08:00 Test Item Value Reference Range Interpretation Comments Vanco Lvl (test code = Vanco Lvl) 10.2 [facility]2020-01-26 13:45:00 Test Item Value Reference Range Interpretation Comments Glucose Lvl (test code = Glucose Lvl) 163 70-99 [facility]2020-01-26 13:45:00 Test Item Value Reference Range Interpretation Comments BUN (test code = BUN) 35 7-22 [facility]2020-01-26 13:45:00 Test Item Value Reference Range Interpretation Comments Creatinine Lvl (test code = Creatinine 9.71 0.50-1.40 Lvl) [facility]2020-01-26 13:45:00 Test Item Value Reference Range Interpretation Comments Sodium Lvl (test code = Sodium Lvl) 139 135-145 [facility]2020-01-26 13:45:00 Test Item Value Reference Range Interpretation Comments Potassium Lvl (test code = Potassium 3.4 3.5-5.1 Lvl) [place] 957540-01-26 13:45:00 Test Item Value Reference Range Interpretation Comments Chloride Lvl (test code = Chloride Lvl) 102 95-109 [place] 957540-01-26 13:45:00 Test Item Value Reference Range Interpretation Comments CO2 (test code = CO2) 29 24-32 [place] 957540-01-26 13:45:00 Test Item Value Reference Range Interpretation Comments Calcium Lvl (test code = Calcium Lvl) 9.0 8.5-10.5 [place] 957540-01-26 13:45:00 Test Item Value Reference Range Interpretation Comments AGAP (test code = AGAP) 11.4 10.0-20.0 [facility]2020-01-26 13:45:00 Test Item Value Reference Range Interpretation Comments eGFR (test code = eGFR) 5 [facility] TexasRizgjofWVHLSHAHPL5169-39-65 13:45:00 Test Item Value Reference Range Interpretation Comments WBC (test code = WBC) 4.3 3.7-10.4 [place] 676690-01-26 13:45:00 Test Item Value Reference Range Interpretation Comments RBC (test code = RBC) 3.00 4.70-6.10 [place] 676690-01-26 13:45:00 Test Item Value Reference Range Interpretation Comments Hgb (test code = Hgb) 8.4 14.0-18.0 [place] 676690-01-26 13:45:00 Test Item Value Reference Range Interpretation Comments Hct (test code = Hct) 25.3 42.0-54.0 [place] 676690-01-26 13:45:00 Test Item Value Reference Range Interpretation Comments MCV (test code = MCV) 84.3 80.0-94.0 [place] 676690-01-26 13:45:00 Test Item Value Reference Range Interpretation Comments MCH (test code = MCH) 28.2 pg 27.0-31.0 [facility] TexasQydaulhQQADFDRIRR0320-43-14 13:45:00 Test Item Value Reference Range Interpretation Comments MCHC (test code = MCHC) 33.4 32.0-36.0 [place] [address]-01-26 13:45:00 Test Item Value Reference Range Interpretation Comments RDW (test code = RDW) 14.5 11.5-14.5 [place] 676690-01-26 13:45:00 Test Item Value Reference Range Interpretation Comments Platelet (test code = Platelet) 217 133-450 [place] 676690-01-26 13:45:00 Test Item Value Reference Range Interpretation Comments MPV (test code = MPV) 6.5 7.4-10.4 [place] 676690-01-26 13:45:00 Test Item Value Reference Range Interpretation Comments Segs (test code = Segs) 66.4 45.0-75.0 [place] [address]-01-26 13:45:00 Test Item Value Reference Range Interpretation Comments Lymphocytes (test code = Lymphocytes) 19.6 20.0-40.0 [place] [address]-01-26 13:45:00 Test Item Value Reference Range Interpretation Comments Monocytes (test code = Monocytes) 9.3 2.0-12.0 [place] 676690-01-26 13:45:00 Test Item Value Reference Range Interpretation Comments Eosinophils (test code = 3.7 See_Comment [A utomated message] The Eosinophils) system which ge nerated this result tra nsmitted reference range : <=4.0. The reference r yared was not used to int erpret this result as normal/abnormal . [place] 676690-01-26 13:45:00 Test Item Value Reference Range Interpretation Comments Basophils (test code = 1.0 See_Comment [Aut omated message] The Basophils) system which ge nerated this result tra nsmitted reference range : <=1.0. The reference r yared was not used to int erpret this result as normal/abnormal . [place] 676690-01-26 13:45:00 Test Item Value Reference Range Interpretation Comments Neutrophils # (test code = Neutrophils 2.8 1.5-8.1 #) [place] 676690-01-26 13:45:00 Test Item Value Reference Range Interpretation Comments Lymphocytes # (test code = Lymphocytes 0.8 1.0-5.5 #) [place] 676690-01-26 13:45:00 Test Item Value Reference Range Interpretation Comments Monocytes # (test code 0.4 See_Comment [Aut omated message] The = Monocytes #) system which generated this result tra nsmitted reference range : <=0.8. The reference r yared was not used to int erpret this result as normal/abnormal . [facility] TexasYggzsszRIMBEJCMJF0646-45-06 13:45:00 Test Item Value Reference Range Interpretation Comments Eosinophils # (test code 0.2 See_Comment [A utomated message] The = Eosinophils #) system whic h generated this result tra nsmitted reference range : <=0.5. The reference r yared was not used to int erpret this result as normal/abnormal . [facility]KpwvipxXVMBMOJKUYRB0123-77-25 13:25:00 Test Item Value Reference Range Interpretation Comments Sodium Lvl (test code = Sodium Lvl) 136 135-145 [facility] BranchDnfwzxpQUIGKTRBFPFO5488-87-29 13:25:00 Test Item Value Reference Range Interpretation Comments Potassium Lvl (test code = Potassium 3.7 3.5-5.1 Lvl) [facility] BranchEbacsnkTPXIQGHSECUX2777-92-78 13:25:00 Test Item Value Reference Range Interpretation Comments Chloride Lvl (test code = Chloride Lvl) 99 95-109 [facility] BranchOdhimdyEHUBLKXZHJOA6589-48-89 13:25:00 Test Item Value Reference Range Interpretation Comments Glucose Lvl (test code = Glucose Lvl) 137 70-99 [facility] BranchKsakcgiMOLXUXTTTKEH8618-00-92 13:25:00 Test Item Value Reference Range Interpretation Comments BUN (test code = BUN) 42 7-22 [facility] BranchOrbwtlsFGWAWPDUOCYI0446-77-63 13:25:00 Test Item Value Reference Range Interpretation Comments Creatinine Lvl (test code = Creatinine 9.35 0.50-1.40 Lvl) [facility] BranchQxcteceTCKDARPOAAKK5097-18-96 13:25:00 Test Item Value Reference Range Interpretation Comments CO2 (test code = CO2) 32 24-32 [facility] BranchDbrestbXDCJNDIMPVPC2074-04-39 13:25:00 Test Item Value Reference Range Interpretation Comments Calcium Lvl (test code = Calcium Lvl) 8.8 8.5-10.5 [facility] BranchRijdrqqOQIALHVBKUWV6800-11-09 13:25:00 Test Item Value Reference Range Interpretation Comments AGAP (test code = AGAP) 8.7 10.0-20.0 [facility] HospitalSffnbvkYPZPPJEZNGQS1543-77-07 13:25:00 Test Item Value Reference Range Interpretation Comments eGFR (test code = eGFR) 6 [facility]VgbdjejILMUCXCCIN6068-69-92 17:58:00 Test Item Value Reference Range Interpretation Comments Vanco Lvl (test code = Vanco Lvl) 10.6 [facility]annB[facility] [id number] 15:00:00 Test Item Value Reference Range Interpretation Comments Color BF (test code = Colorless (11/01/19 9:00 Color BF) AM) [facility] [id number] 15:00:00 Test Item Value Reference Range Interpretation Comments Clarity BF (test code = Slight Cloudy (11/01/19 Clarity BF) 9:00 AM) [facility] [id number] 15:00:00 Test Item Value Reference Range Interpretation Comments Nucleated Cells BF (test code = 579 Nucleated Cells BF) [facility] [id number] 15:00:00 Test Item Value Reference Range Interpretation Comments RBC BF (test code = RBC BF) 54 [facility] [id number] 15:00:00 Test Item Value Reference Range Interpretation Comments Neutrophils BF (test code = Neutrophils 20 BF) [facility] [id number] 15:00:00 Test Item Value Reference Range Interpretation Comments Lymph BF (test code = Lymph BF) 41 [facility]uda[facility] [id number] 15:00:00 Test Item Value Reference Range Interpretation Comments Macrophage BF (test code = Macrophage 35 BF) [facility]uda[facility] [id number] 15:00:00 Test Item Value Reference Range Interpretation Comments Meso BF (test code = Meso BF) 4 [facility] [id number] 15:00:00 Test Item Value Reference Range Interpretation Comments CellCnt BF Type (test Periton (11/01/19 9:00 code = CellCnt BF Type) AM) [facility] BudaGram Stain [id number] 15:00:00 Test Item Value Reference Range Interpretation Comments Gram Stain Report No Wbc'S Or Organisms (test code = Gram Seen Stain Report) [facility] BudaCulture: Aspirate/Body Fluid/[id number] 15:00:00 Test Item Value Reference Range Interpretation Comments Culture: Aspirate/Body Fluid/Tissue No Growth (test code = Culture: Aspirate/Body Fluid/Tissue) [facility]2020-01-23 18:35:00 Test Item Value Reference Range Interpretation Comments Color BF (test code = Colorless (10/31/19 12:35 Color BF) PM) [facility]2020-01-23 18:35:00 Test Item Value Reference Range Interpretation Comments Clarity BF (test code = Slight Cloudy (10/31/19 Clarity BF) 12:35 PM) [facility]2020-01-23 18:35:00 Test Item Value Reference Range Interpretation Comments Nucleated Cells BF (test code = 557 Nucleated Cells BF) [facility]2020-01-23 18:35:00 Test Item Value Reference Range Interpretation Comments RBC BF (test code = RBC BF) 0 [facility]2020-01-23 18:35:00 Test Item Value Reference Range Interpretation Comments Neutrophils BF (test code = Neutrophils 35 BF) [facility]2020-01-23 18:35:00 Test Item Value Reference Range Interpretation Comments Lymph BF (test code = Lymph BF) 21 [facility]2020-01-23 18:35:00 Test Item Value Reference Range Interpretation Comments Macrophage BF (test code = Macrophage 43 BF) [facility]2020-01-23 18:35:00 Test Item Value Reference Range Interpretation Comments Eos BF (test code = Eos BF) 1 [facility]2020-01-23 18:35:00 Test Item Value Reference Range Interpretation Comments CellCnt BF Type (test Periton (10/31/19 12:35 code = CellCnt BF Type) PM) [facility] BudaGram Stain [id number] 18:35:00 Test Item Value Reference Range Interpretation Comments Gram Stain Report Rare WBC's No Organisms (test code = Gram Seen Stain Report) [facility] BudaCulture: Aspirate/Body Fluid/[id number] 18:35:00 Test Item Value Reference Range Interpretation Comments Culture: Aspirate/Body Fluid/Tissue No Growth (test code = Culture: Aspirate/Body Fluid/Tissue) [facility] BudaSxqluflEPFCLYSNLP2921-61-92 10:35:00 Test Item Value Reference Range Interpretation Comments RDW (test code = RDW) 14.5 11.5-14.5 [place] 676690-01-23 10:35:00 Test Item Value Reference Range Interpretation Comments Platelet (test code = Platelet) 188 133-450 [place] 676690-01-23 10:35:00 Test Item Value Reference Range Interpretation Comments MPV (test code = MPV) 7.0 7.4-10.4 [place] 676690-01-23 10:35:00 Test Item Value Reference Range Interpretation Comments Segs (test code = Segs) 77.7 45.0-75.0 [place] 676690-01-23 10:35:00 Test Item Value Reference Range Interpretation Comments Lymphocytes (test code = Lymphocytes) 10.2 20.0-40.0 [place] 676690-01-23 10:35:00 Test Item Value Reference Range Interpretation Comments Monocytes (test code = Monocytes) 10.0 2.0-12.0 [place] 676690-01-23 10:35:00 Test Item Value Reference Range Interpretation Comments Eosinophils (test code = 1.7 See_Comment [A utomated message] The Eosinophils) system which ge nerated this result tra nsmitted reference range : <=4.0. The reference r yared was not used to int erpret this result as normal/abnormal . [facility] TexasJdvwvbbZGYNBIGUDI0066-74-76 10:35:00 Test Item Value Reference Range Interpretation Comments Basophils (test code = 0.4 See_Comment [Aut omated message] The Basophils) system which ge nerated this result tra nsmitted reference range : <=1.0. The reference r yared was not used to int erpret this result as normal/abnormal . [facility] TexasDpdbgxmQNJDBIJFIU6691-20-20 10:35:00 Test Item Value Reference Range Interpretation Comments Neutrophils # (test code = Neutrophils 4.9 1.5-8.1 #) [place] 676690-01-23 10:35:00 Test Item Value Reference Range Interpretation Comments Lymphocytes # (test code = Lymphocytes 0.6 1.0-5.5 #) [place] 676690-01-23 10:35:00 Test Item Value Reference Range Interpretation Comments Monocytes # (test code 0.6 See_Comment [Aut omated message] The = Monocytes #) system which generated this result tra nsmitted reference range : <=0.8. The reference r yared was not used to int erpret this result as normal/abnormal . [facility]KkubockIRNCTTSVQF4591-01-71 10:35:00 Test Item Value Reference Range Interpretation Comments Eosinophils # (test code 0.1 See_Comment [A utomated message] The = Eosinophils #) system whic h generated this result tra nsmitted reference range : <=0.5. The reference r yared was not used to int erpret this result as normal/abnormal . [facility]udaThe [facility] [id number] 10:35:00 Test Item Value Reference Range Interpretation Comments Phosphorus (test code = Phosphorus) 4.3 2.5-4.5 [facility]udaThe [facility] [id number] 10:35:00 Test Item Value Reference Range Interpretation Comments Magnesium Lvl (test code = Magnesium 2.0 1.8-2.4 Lvl) [facility] TexasVbwyhrlFKRCGKFLLD8203-84-50 10:35:00 Test Item Value Reference Range Interpretation Comments WBC (test code = WBC) 6.3 3.7-10.4 [facility] HospitalZtnubptMSKLYWAJNS9112-86-03 10:35:00 Test Item Value Reference Range Interpretation Comments RBC (test code = RBC) 2.76 4.70-6.10 [facility] HospitalHtvnvgiCJTLTLROIP7502-16-77 10:35:00 Test Item Value Reference Range Interpretation Comments Hgb (test code = Hgb) 8.1 14.0-18.0 [facility] HospitalEzsggleFJGLLEZUXV5020-47-02 10:35:00 Test Item Value Reference Range Interpretation Comments Hct (test code = Hct) 23.5 42.0-54.0 [facility] HospitalXnmtvmuOVYPCQZTZZ4716-22-75 10:35:00 Test Item Value Reference Range Interpretation Comments MCV (test code = MCV) 85.2 80.0-94.0 [facility] HospitalKmrkvflRGGOAEIJJO3940-76-14 10:35:00 Test Item Value Reference Range Interpretation Comments MCH (test code = MCH) 29.2 pg 27.0-31.0 [facility] HospitalQszmepjTMSJBYBHFN2005-86-41 10:35:00 Test Item Value Reference Range Interpretation Comments MCHC (test code = MCHC) 34.3 32.0-36.0 [facility] BudaMOLECULAR [id number] 19:34:00 Test Item Value Reference Range Interpretation Comments Source Respiratory Nasophrngl Swb Panel PCR (test code = *NA*(10/30/19 1:34 PM) Source Respiratory Panel PCR) [facility] [id number] 19:34:00 Test Item Value Reference Range Interpretation Comments Influenza A PCR (test Negative *NA*(10/30/19 code = Influenza A PCR) 1:34 PM) [facility] [id number] 19:34:00 Test Item Value Reference Range Interpretation Comments Influenza B PCR (test Negative *NA*(10/30/19 code = Influenza B PCR) 1:34 PM) [facility] [id number] 19:34:00 Test Item Value Reference Range Interpretation Comments RSV PCR (test code = Positive *ABN*(10/30/19 RSV PCR) 1:34 PM) [facility]OLATE:ORDQN:[id number] 18:00:00 Test Item Value Reference Range Interpretation Comments Gram Stain Report Few WBC's No Organisms (test code = Gram Seen Stain Report) [facility]C:PT:ISOLATE:ORDQN:[id number] 18:00:00 Test Item Value Reference Range Interpretation Comments Culture: Few Pseudomonas putida Aspirate/Body Growth In Subculture Broth Fluid/Tissue (test Only Enterococcus Species code = Culture: Aspirate/Body Fluid/Tissue) [facility]:PT:ISOLATE:ORDQN:[id number] 18:00:00 Test Item Value Reference Range Interpretation Comments Enterococcus Species Enterococcus Species (test code = Enterococcus Species) [facility] BudaIMIPENEM:SUSC:PT:ISOLATE:ORDQN:[id number] 18:00:00 Test Item Value Reference Range Interpretation Comments Pseudomonas putida (test Pseudomonas putida code = Pseudomonas putida) [facility] [id number] 17:21:00 Test Item Value Reference Range Interpretation Comments Lactic Acid Lvl (test code = Lactic 0.6 0.5-2.2 Acid Lvl) [facility] [id number] 10:56:00 Test Item Value Reference Range Interpretation Comments Magnesium Lvl (test code = Magnesium 2.1 1.8-2.4 Lvl) [facility]2020-01-22 10:56:00 Test Item Value Reference Range Interpretation Comments Phosphorus (test code = Phosphorus) 4.5 2.5-4.5 [facility] HospitalHohihbvYTYQHXQQSO5408-92-29 10:56:00 Test Item Value Reference Range Interpretation Comments WBC (test code = WBC) 6.7 3.7-10.4 [facility] HospitalYewbqgtATDAVUGUHE2668-93-28 10:56:00 Test Item Value Reference Range Interpretation Comments RBC (test code = RBC) 2.47 4.70-6.10 [facility] BudaKyxbueiSUKCGHXUZE4944-97-82 10:56:00 Test Item Value Reference Range Interpretation Comments Hgb (test code = Hgb) 7.2 14.0-18.0 [facility] TexasAbjchiiQGCLAWHFUQ8417-10-00 10:56:00 Test Item Value Reference Range Interpretation Comments Hct (test code = Hct) 21.1 42.0-54.0 [facility] TexasUuqfkdkSKBMLNGBKW4730-44-66 10:56:00 Test Item Value Reference Range Interpretation Comments MCV (test code = MCV) 85.2 80.0-94.0 [facility] HospitalEtaolcjGQLTBIEHCQ8038-94-63 10:56:00 Test Item Value Reference Range Interpretation Comments MCH (test code = MCH) 28.9 pg 27.0-31.0 [facility] TexasXbskrfzBVTDZIWGMC7807-54-25 10:56:00 Test Item Value Reference Range Interpretation Comments MCHC (test code = MCHC) 34.0 32.0-36.0 [facility] TexasCnvjlqsIQKMCTWTPA5468-86-11 10:56:00 Test Item Value Reference Range Interpretation Comments RDW (test code = RDW) 14.6 11.5-14.5 [facility] TexasGjscobkQTZONCCXVQ8955-78-38 10:56:00 Test Item Value Reference Range Interpretation Comments Platelet (test code = Platelet) 171 133-450 [facility] HospitalZsbjmglKXNEZJNJDL0202-36-74 10:56:00 Test Item Value Reference Range Interpretation Comments MPV (test code = MPV) 7.2 7.4-10.4 [facility] TexasQeuvrdvPSPFRJZVBE5710-71-19 10:56:00 Test Item Value Reference Range Interpretation Comments Segs (test code = Segs) 87.8 45.0-75.0 [facility] TexasCurgdhqSMUIEMITJX1548-04-20 10:56:00 Test Item Value Reference Range Interpretation Comments Lymphocytes (test code = Lymphocytes) 3.9 20.0-40.0 [facility] TexasMzoklsyLKDJJPDKUP5482-74-97 10:56:00 Test Item Value Reference Range Interpretation Comments Monocytes (test code = Monocytes) 6.8 2.0-12.0 [facility] TexasBaalxktMJMECRHHFB3036-92-09 10:56:00 Test Item Value Reference Range Interpretation Comments Eosinophils (test code = 1.1 See_Comment [A utomated message] The Eosinophils) system which ge nerated this result tra nsmitted reference range : <=4.0. The reference r yared was not used to int erpret this result as normal/abnormal . [place] 676690-01-22 10:56:00 Test Item Value Reference Range Interpretation Comments Basophils (test code = 0.4 See_Comment [Aut omated message] The Basophils) system which ge nerated this result tra nsmitted reference range : <=1.0. The reference r yared was not used to int erpret this result as normal/abnormal . [facility] TexasObwkcamJZOJEGBMLK9490-02-52 10:56:00 Test Item Value Reference Range Interpretation Comments Neutrophils # (test code = Neutrophils 5.9 1.5-8.1 #) [facility] TexasDvmovdxOJMMTNRFVI9126-72-62 10:56:00 Test Item Value Reference Range Interpretation Comments Lymphocytes # (test code = Lymphocytes 0.3 1.0-5.5 #) [facility] TexasXpkamefPRPRKRWFPG1035-07-72 10:56:00 Test Item Value Reference Range Interpretation Comments Monocytes # (test code 0.5 See_Comment [Aut omated message] The = Monocytes #) system which generated this result tra nsmitted reference range : <=0.8. The reference r yared was not used to int erpret this result as normal/abnormal . [place] 676690-01-22 10:56:00 Test Item Value Reference Range Interpretation Comments Eosinophils # (test code 0.1 See_Comment [A utomated message] The = Eosinophils #) system whic h generated this result tra nsmitted reference range : <=0.5. The reference r yared was not used to int erpret this result as normal/abnormal . [facility]2020-01-21 22:52:00 Test Item Value Reference Range Interpretation Comments Magnesium Lvl (test code = Magnesium 2.2 1.8-2.4 Lvl) [facility] [employer]2020-01-21 22:52:00 Test Item Value Reference Range Interpretation Comments Phosphorus (test code = Phosphorus) 5.8 2.5-4.5 [facility] [employer]2020-01-21 10:47:00 Test Item Value Reference Range Interpretation Comments Troponin-I (test code 0.02 See_Comment [Auto mated message] The = Troponin-I) system which g enerated this result transmit emerson reference range : <=0.40. The reference r yared was not used to interpr et this result as erinn l/abnormal. [facility] [employer]2020-01-21 07:19:00 Test Item Value Reference Range Interpretation Comments Troponin-I (test code 0.02 See_Comment [Auto mated message] The = Troponin-I) system which g enerated this result transmit emerson reference range : <=0.40. The reference r yared was not used to interpr et this result as erinn l/abnormal. [facility] [employer]2020-01-21 03:06:00 Test Item Value Reference Range Interpretation Comments Troponin-I (test code no gt See_Comment [Auto mated message] The = Troponin-I) system which g enerated this result transmit emerson reference range : <=0.40. The reference r yared was not used to interpr et this result as erinn l/abnormal. [facility] [employer]2020-01-21 03:06:00 Test Item Value Reference Range Interpretation Comments Total Protein (test code = Total 5.5 6.4-8.4 Protein) [facility] [employer]2020-01-21 03:06:00 Test Item Value Reference Range Interpretation Comments Albumin Lvl (test code = Albumin Lvl) 2.3 3.5-5.0 [facility] [employer]2020-01-21 03:06:00 Test Item Value Reference Range Interpretation Comments ALT (test code = ALT) 22 See_Comment [Auto mated message] The system which ge nerated this result transmit emerson reference range : <=65. The reference range was not used to interpr et this result as erinn l/abnormal. [employer]2020-01-21 03:06:00 Test Item Value Reference Range Interpretation Comments AST (test code = AST) 50 See_Comment [Auto mated message] The system which ge nerated this result transmit emerson reference range : <=37. The reference range was not used to interpr et this result as erinn l/abnormal. [facility]2020-01-21 03:06:00 Test Item Value Reference Range Interpretation Comments Alk Phos (test code = Alk Phos) 68 39-136 [facility]2020-01-21 03:06:00 Test Item Value Reference Range Interpretation Comments Bili Total (test code = Bili Total) 0.6 0.2-1.3 [place] 957540-01-21 03:06:00 Test Item Value Reference Range Interpretation Comments B/C Ratio (test code = B/C Ratio) 5 1 6-25 [facility]2020-01-21 03:06:00 Test Item Value Reference Range Interpretation Comments Globulin (test code = Globulin) 3.2 2.7-4.2 [facility]2020-01-21 03:06:00 Test Item Value Reference Range Interpretation Comments A/G Ratio (test code = A/G Ratio) 0.7 1 0.7-1.6 [facility] TexasIfqbbdpGNYFFRTBAK1373-26-10 03:06:00 Test Item Value Reference Range Interpretation Comments Plt Morph (test code = Normal (10/28/19 9:06 Plt Morph) PM) [facility] TexasHurwnndXJUWQPYOLF7500-78-57 03:06:00 Test Item Value Reference Range Interpretation Comments Basophils # (test code 0.1 See_Comment [Aut omated message] The = Basophils #) system which generated this result tra nsmitted reference range : <=0.2. The reference r yared was not used to int erpret this result as normal/abnormal . [facility]2019-11-12 10:56:00 Test Item Value Reference Range Interpretation Comments Glucose Lvl (test code = Glucose Lvl) 93 70-99 [facility]2019-11-12 10:56:00 Test Item Value Reference Range Interpretation Comments BUN (test code = BUN) 26 7-22 [facility]2019-11-12 10:56:00 Test Item Value Reference Range Interpretation Comments Creatinine Lvl (test code = Creatinine 7.85 0.50-1.40 Lvl) [facility]2019-11-12 10:56:00 Test Item Value Reference Range Interpretation Comments Sodium Lvl (test code = Sodium Lvl) 140 135-145 [facility]2019-11-12 10:56:00 Test Item Value Reference Range Interpretation Comments Potassium Lvl (test code = Potassium 3.7 3.5-5.1 Lvl) [facility]2019-11-12 10:56:00 Test Item Value Reference Range Interpretation Comments Chloride Lvl (test code = Chloride Lvl) 104 95-109 [facility]2019-11-12 10:56:00 Test Item Value Reference Range Interpretation Comments CO2 (test code = CO2) 25 24-32 [facility]2019-11-12 10:56:00 Test Item Value Reference Range Interpretation Comments Calcium Lvl (test code = Calcium Lvl) 9.2 8.5-10.5 [facility]2019-11-12 10:56:00 Test Item Value Reference Range Interpretation Comments eGFR (test code = eGFR) 7 [facility]2019-11-12 10:56:00 Test Item Value Reference Range Interpretation Comments AGAP (test code = AGAP) 14.7 10.0-20.0 [facility] TexasDrtidmlPONDRNPQXG0676-44-91 10:56:00 Test Item Value Reference Range Interpretation Comments WBC (test code = WBC) 8.6 3.7-10.4 [facility] TexasCpehfacONICNVPGTQ6986-70-27 10:56:00 Test Item Value Reference Range Interpretation Comments RBC (test code = RBC) 3.37 4.70-6.10 [facility] TexasYlufrfiMWCWATPWRJ3822-59-24 10:56:00 Test Item Value Reference Range Interpretation Comments Hgb (test code = Hgb) 10.2 14.0-18.0 [facility] TexasLbxzrvhZZABSGSQSW8255-45-62 10:56:00 Test Item Value Reference Range Interpretation Comments Hct (test code = Hct) 29.9 42.0-54.0 [facility] TexasHmszzmbISYBYOTGRJ0227-32-05 10:56:00 Test Item Value Reference Range Interpretation Comments MCV (test code = MCV) 88.7 80.0-94.0 [facility] TexasQpyrpxhFELPNQBYUI9349-14-91 10:56:00 Test Item Value Reference Range Interpretation Comments MCH (test code = MCH) 30.1 pg 27.0-31.0 [facility] TexasTudicozVLXMBEBICT4253-68-69 10:56:00 Test Item Value Reference Range Interpretation Comments MCHC (test code = MCHC) 33.9 32.0-36.0 [facility] TexasGxvhaaqOKVBLCAEJI0111-77-83 10:56:00 Test Item Value Reference Range Interpretation Comments RDW (test code = RDW) 13.7 11.5-14.5 [facility] TexasWxttalkCMCQEPRVTB6518-35-72 10:56:00 Test Item Value Reference Range Interpretation Comments Platelet (test code = Platelet) 294 133-450 [facility] TexasJxskzvlHTNHOOCZGU1975-17-11 10:56:00 Test Item Value Reference Range Interpretation Comments MPV (test code = MPV) 6.7 7.4-10.4 [facility] TexasJkljjktKPIXVLLLSF8238-63-97 10:56:00 Test Item Value Reference Range Interpretation Comments Segs (test code = Segs) 79.5 45.0-75.0 [facility] TexasPgirxpvDEIRNNXOPN4538-44-71 10:56:00 Test Item Value Reference Range Interpretation Comments Lymphocytes (test code = Lymphocytes) 12.8 20.0-40.0 [facility] TexasTabaaxhLCDRFAVVUJ9647-58-94 10:56:00 Test Item Value Reference Range Interpretation Comments Monocytes (test code = Monocytes) 6.3 2.0-12.0 [facility] TexasCabmvsvVBWTWJMJJH0561-97-46 10:56:00 Test Item Value Reference Range Interpretation Comments Eosinophils (test code = 0.6 See_Comment [A utomated message] The Eosinophils) system which ge nerated this result tra nsmitted reference range : <=4.0. The reference r yared was not used to int erpret this result as normal/abnormal . [facility] TexasIkoewvoYKVOOPHRQU2512-42-15 10:56:00 Test Item Value Reference Range Interpretation Comments Basophils (test code = 0.8 See_Comment [Aut omated message] The Basophils) system which ge nerated this result tra nsmitted reference range : <=1.0. The reference r yared was not used to int erpret this result as normal/abnormal . [facility] TexasQdkzyutZGZPEGLHEA0972-36-82 10:56:00 Test Item Value Reference Range Interpretation Comments Neutrophils # (test code = Neutrophils 6.8 1.5-8.1 #) [facility] TexasRyghhqzPTZRTFEOFY7378-12-59 10:56:00 Test Item Value Reference Range Interpretation Comments Lymphocytes # (test code = Lymphocytes 1.1 1.0-5.5 #) [facility] TexasTxehsevLKLXIVFDFC9926-27-64 10:56:00 Test Item Value Reference Range Interpretation Comments Monocytes # (test code 0.5 See_Comment [Aut omated message] The = Monocytes #) system which generated this result tra nsmitted reference range : <=0.8. The reference r yared was not used to int erpret this result as normal/abnormal . [facility] TexasDdgekaaQGSJXDKAHW9651-50-02 10:56:00 Test Item Value Reference Range Interpretation Comments Basophils # (test code 0.1 See_Comment [Aut omated message] The = Basophils #) system which generated this result tra nsmitted reference range : <=0.2. The reference r yared was not used to int erpret this result as normal/abnormal . [facility]2019-11-11 10:14:00 Test Item Value Reference Range Interpretation Comments Glucose Lvl (test code = Glucose Lvl) 105 70-99 [facility]2019-11-11 10:14:00 Test Item Value Reference Range Interpretation Comments BUN (test code = BUN) 18 7-22 [facility]2019-11-11 10:14:00 Test Item Value Reference Range Interpretation Comments Creatinine Lvl (test code = Creatinine 7.09 0.50-1.40 Lvl) [facility]2019-11-11 10:14:00 Test Item Value Reference Range Interpretation Comments Sodium Lvl (test code = Sodium Lvl) 138 135-145 [facility]2019-11-11 10:14:00 Test Item Value Reference Range Interpretation Comments Potassium Lvl (test code = Potassium 3.6 3.5-5.1 Lvl) [facility]2019-11-11 10:14:00 Test Item Value Reference Range Interpretation Comments Chloride Lvl (test code = Chloride Lvl) 100 95-109 [facility]2019-11-11 10:14:00 Test Item Value Reference Range Interpretation Comments CO2 (test code = CO2) 28 24-32 [place] 265879-11-11 10:14:00 Test Item Value Reference Range Interpretation Comments AGAP (test code = AGAP) 13.6 10.0-20.0 [facility]2019-11-11 10:14:00 Test Item Value Reference Range Interpretation Comments Calcium Lvl (test code = Calcium Lvl) 9.5 8.5-10.5 [facility]2019-11-11 10:14:00 Test Item Value Reference Range Interpretation Comments eGFR (test code = eGFR) 8 [facility]IphrjakNNMNFVYQPY3888-87-05 10:14:00 Test Item Value Reference Range Interpretation Comments WBC (test code = WBC) 7.7 3.7-10.4 [facility] TexasIqlpwhcRCRXPHTYGD8315-12-37 10:14:00 Test Item Value Reference Range Interpretation Comments RBC (test code = RBC) 3.61 4.70-6.10 [facility] TexasZxrspleFIOBJXUQEZ6935-64-44 10:14:00 Test Item Value Reference Range Interpretation Comments Hgb (test code = Hgb) 10.8 14.0-18.0 [facility] TexasSjejqgmOTAPTURIXG3994-25-29 10:14:00 Test Item Value Reference Range Interpretation Comments Hct (test code = Hct) 31.7 42.0-54.0 [facility] TexasLnvmxefXKABOTVWJW3324-99-97 10:14:00 Test Item Value Reference Range Interpretation Comments MCV (test code = MCV) 87.7 80.0-94.0 [facility] TexasYjlnvieEFYPDNGUSR4777-03-49 10:14:00 Test Item Value Reference Range Interpretation Comments MCH (test code = MCH) 30.0 pg 27.0-31.0 [facility] TexasZxpgqpfYWSVQBHEFJ8182-24-82 10:14:00 Test Item Value Reference Range Interpretation Comments MCHC (test code = MCHC) 34.2 32.0-36.0 [facility] TexasOeytwueEOMIBUTCMR1472-98-54 10:14:00 Test Item Value Reference Range Interpretation Comments RDW (test code = RDW) 14.0 11.5-14.5 [facility] TexasGwljnqlYGETZGIBDA3974-12-95 10:14:00 Test Item Value Reference Range Interpretation Comments Platelet (test code = Platelet) 292 133-450 [facility] TexasOewjygpIEUUUNKOGN1693-95-11 10:14:00 Test Item Value Reference Range Interpretation Comments MPV (test code = MPV) 7.0 7.4-10.4 [facility] TexasAymaheaHBQQAOHXVD6978-04-64 10:14:00 Test Item Value Reference Range Interpretation Comments Segs (test code = Segs) 75.0 45.0-75.0 [facility] TexasLbljybvREHEMMNVFU5305-60-01 10:14:00 Test Item Value Reference Range Interpretation Comments Lymphocytes (test code = Lymphocytes) 15.4 20.0-40.0 [facility] TexasFlapargQSGCYTJLUT7880-94-78 10:14:00 Test Item Value Reference Range Interpretation Comments Monocytes (test code = Monocytes) 7.1 2.0-12.0 [facility] TexasXugdjdiEIXTKDJGEU2141-14-69 10:14:00 Test Item Value Reference Range Interpretation Comments Eosinophils (test code = 1.4 See_Comment [A utomated message] The Eosinophils) system which ge nerated this result tra nsmitted reference range : <=4.0. The reference r yared was not used to int erpret this result as normal/abnormal . [facility] TexasZnltgshABEVJEJEZY6706-48-70 10:14:00 Test Item Value Reference Range Interpretation Comments Basophils (test code = 1.1 See_Comment [Aut omated message] The Basophils) system which ge nerated this result tra nsmitted reference range : <=1.0. The reference r yared was not used to int erpret this result as normal/abnormal . [facility] TexasFanbqqcLJBXGRTMFW2050-14-67 10:14:00 Test Item Value Reference Range Interpretation Comments Neutrophils # (test code = Neutrophils 5.8 1.5-8.1 #) [facility] TexasGdkrtozSDIZWAKAIL4902-10-16 10:14:00 Test Item Value Reference Range Interpretation Comments Lymphocytes # (test code = Lymphocytes 1.2 1.0-5.5 #) [facility] TexasJhhisltIZIBJVGYFE9542-33-23 10:14:00 Test Item Value Reference Range Interpretation Comments Monocytes # (test code 0.5 See_Comment [Aut omated message] The = Monocytes #) system which generated this result tra nsmitted reference range : <=0.8. The reference r yared was not used to int erpret this result as normal/abnormal . [facility] TexasZoeoumiTOSCGBUNUE9778-82-71 10:14:00 Test Item Value Reference Range Interpretation Comments Eosinophils # (test code 0.1 See_Comment [A utomated message] The = Eosinophils #) system whic h generated this result tra nsmitted reference range : <=0.5. The reference r yared was not used to int erpret this result as normal/abnormal . [facility] TexasUlqwtmdQQBKEFKUKE8816-11-67 10:14:00 Test Item Value Reference Range Interpretation Comments Basophils # (test code 0.1 See_Comment [Aut omated message] The = Basophils #) system which generated this result tra nsmitted reference range : <=0.2. The reference r yared was not used to int erpret this result as normal/abnormal . [facility]2019-11-10 10:24:00 Test Item Value Reference Range Interpretation Comments Glucose Lvl (test code = Glucose Lvl) 106 70-99 [facility]2019-11-10 10:24:00 Test Item Value Reference Range Interpretation Comments BUN (test code = BUN) 34 7-22 [facility]2019-11-10 10:24:00 Test Item Value Reference Range Interpretation Comments Creatinine Lvl (test code = Creatinine 11.00 0.50-1.40 Lvl) [facility]2019-11-10 10:24:00 Test Item Value Reference Range Interpretation Comments Sodium Lvl (test code = Sodium Lvl) 139 135-145 [facility]2019-11-10 10:24:00 Test Item Value Reference Range Interpretation Comments Potassium Lvl (test code = Potassium 3.6 3.5-5.1 Lvl) [facility]2019-11-10 10:24:00 Test Item Value Reference Range Interpretation Comments Chloride Lvl (test code = Chloride Lvl) 103 95-109 [facility]2019-11-10 10:24:00 Test Item Value Reference Range Interpretation Comments CO2 (test code = CO2) 28 24-32 [facility]2019-11-10 10:24:00 Test Item Value Reference Range Interpretation Comments AGAP (test code = AGAP) 11.6 10.0-20.0 [facility]2019-11-10 10:24:00 Test Item Value Reference Range Interpretation Comments Calcium Lvl (test code = Calcium Lvl) 9.0 8.5-10.5 [facility]2019-11-10 10:24:00 Test Item Value Reference Range Interpretation Comments eGFR (test code = eGFR) 5 [facility] TexasZkqogljTXQPCGNCPQ3810-66-81 10:24:00 Test Item Value Reference Range Interpretation Comments WBC (test code = WBC) 6.9 3.7-10.4 [facility] TexasWdoctvdPTFKELCTTC8789-51-26 10:24:00 Test Item Value Reference Range Interpretation Comments RBC (test code = RBC) 3.13 4.70-6.10 [facility] TexasDqnkcybMBTWSGQSJL6533-83-49 10:24:00 Test Item Value Reference Range Interpretation Comments Hgb (test code = Hgb) 9.3 14.0-18.0 [facility] TexasMduehpbACYGKXOGKV0021-54-81 10:24:00 Test Item Value Reference Range Interpretation Comments Hct (test code = Hct) 27.4 42.0-54.0 [facility] TexasTdfczzwDAPQRDOCFU7653-06-96 10:24:00 Test Item Value Reference Range Interpretation Comments MCV (test code = MCV) 87.7 80.0-94.0 [facility] TexasRnxpaasBKKDHDCRYO0321-61-73 10:24:00 Test Item Value Reference Range Interpretation Comments MCH (test code = MCH) 29.6 pg 27.0-31.0 [facility] TexasLkpcyekSWJWCZJGBR8336-12-20 10:24:00 Test Item Value Reference Range Interpretation Comments MCHC (test code = MCHC) 33.8 32.0-36.0 [facility] TexasIctqctxOOGGUAKJET0659-93-62 10:24:00 Test Item Value Reference Range Interpretation Comments RDW (test code = RDW) 14.0 11.5-14.5 [facility] TexasAwtzuyiTKAKLPQKED1579-00-29 10:24:00 Test Item Value Reference Range Interpretation Comments Platelet (test code = Platelet) 236 133-450 [facility] TexasBtjyjizISRZNWEZSU3260-52-58 10:24:00 Test Item Value Reference Range Interpretation Comments MPV (test code = MPV) 6.9 7.4-10.4 [facility] TexasFpdcqbjMUNXLXCGKL0636-45-06 10:24:00 Test Item Value Reference Range Interpretation Comments Segs (test code = Segs) 78.2 45.0-75.0 [facility] TexasDcjlarsUOJHCRYTMH3071-91-61 10:24:00 Test Item Value Reference Range Interpretation Comments Lymphocytes (test code = Lymphocytes) 12.2 20.0-40.0 [facility] TexasWlvhhfcWJSRJVVPHV4056-12-00 10:24:00 Test Item Value Reference Range Interpretation Comments Monocytes (test code = Monocytes) 6.6 2.0-12.0 [facility] TexasWoxxiahNZLKDITQQQ0908-73-86 10:24:00 Test Item Value Reference Range Interpretation Comments Eosinophils (test code = 2.4 See_Comment [A utomated message] The Eosinophils) system which ge nerated this result tra nsmitted reference range : <=4.0. The reference r yared was not used to int erpret this result as normal/abnormal . [facility] TexasWciyjvsHYQFUREVBC8305-51-51 10:24:00 Test Item Value Reference Range Interpretation Comments Basophils (test code = 0.6 See_Comment [Aut omated message] The Basophils) system which ge nerated this result tra nsmitted reference range : <=1.0. The reference r yared was not used to int erpret this result as normal/abnormal . [facility] TexasLrbnfenCHFDJHHACC2174-45-88 10:24:00 Test Item Value Reference Range Interpretation Comments Neutrophils # (test code = Neutrophils 5.4 1.5-8.1 #) [facility] TexasOkhtapfDDBLSKSQQY7555-41-03 10:24:00 Test Item Value Reference Range Interpretation Comments Lymphocytes # (test code = Lymphocytes 0.8 1.0-5.5 #) [facility] TexasOfcdyinXWJCBJUEJD9908-48-05 10:24:00 Test Item Value Reference Range Interpretation Comments Monocytes # (test code 0.5 See_Comment [Aut omated message] The = Monocytes #) system which generated this result tra nsmitted reference range : <=0.8. The reference r yared was not used to int erpret this result as normal/abnormal . [facility] TexasFbuujllQNUCGKXJXM3675-07-82 10:24:00 Test Item Value Reference Range Interpretation Comments Eosinophils # (test code 0.2 See_Comment [A utomated message] The = Eosinophils #) system whic h generated this result tra nsmitted reference range : <=0.5. The reference r yared was not used to int erpret this result as normal/abnormal . [facility]DrmanxfQHIKXUSCBG9610-26-33 14:31:00 Test Item Value Reference Range Interpretation Comments Hep Bs Ag (test code Negative *NA*(08/17/19 = Hep Bs Ag) 8:31 AM) [facility] TexasGrgvymzKCDZFVOFRR8360-42-73 19:35:00 Test Item Value Reference Range Interpretation Comments PT (test code = PT) 12.2 s 12.0-14.7 [facility] TexasXjrgjtxUBJFNSCZRC6036-68-35 19:35:00 Test Item Value Reference Range Interpretation Comments INR (test code = INR) 0.92 1 0.85-1.17 [facility] TexasAdkhxdlYPYOWLCSPR0381-60-62 19:35:00 Test Item Value Reference Range Interpretation Comments PTT (test code = PTT) 37.1 s 22.9-35.8 [facility]2019-06-30 10:20:00 Test Item Value Reference Range Interpretation Comments eGFR (test code = eGFR) 3 [facility]2019-06-30 10:20:00 Test Item Value Reference Range Interpretation Comments Glucose Lvl (test code = Glucose Lvl) 96 70-99 [facility]2019-06-30 10:20:00 Test Item Value Reference Range Interpretation Comments BUN (test code = BUN) 68 7-22 [facility]2019-06-30 10:20:00 Test Item Value Reference Range Interpretation Comments Calcium Lvl (test code = Calcium Lvl) 8.7 8.5-10.5 [facility]2019-06-30 10:20:00 Test Item Value Reference Range Interpretation Comments AGAP (test code = AGAP) 16.7 10.0-20.0 [facility]2019-06-30 10:20:00 Test Item Value Reference Range Interpretation Comments Sodium Lvl (test code = Sodium Lvl) 131 135-145 [facility]2019-06-30 10:20:00 Test Item Value Reference Range Interpretation Comments CO2 (test code = CO2) 25 24-32 [facility]2019-06-30 10:20:00 Test Item Value Reference Range Interpretation Comments Potassium Lvl (test code = Potassium 3.7 3.5-5.1 Lvl) [facility]2019-06-30 10:20:00 Test Item Value Reference Range Interpretation Comments Chloride Lvl (test code = Chloride Lvl) 93 95-109 [facility]2019-06-30 10:20:00 Test Item Value Reference Range Interpretation Comments Creatinine Lvl (test code = Creatinine 15.20 0.50-1.40 Lvl) [facility]udaCAR[facility] [id number] 14:42:00 Test Item Value Reference Range Interpretation Comments Troponin-I (test code 0.03 See_Comment [Auto mated message] The = Troponin-I) system which g enerated this result transmit emerson reference range : <=0.40. The reference r yared was not used to interpr et this result as erinn l/abnormal. [facility] BudaGram Stain Xfrtpe2343-93-74 14:25:00 Test Item Value Reference Range Interpretation Comments Gram Stain Report Rare WBC's No Organisms (test code = Gram Seen Stain Report) [facility]udaCulture: Aspirate/Body Fluid/Jasdto9738-65-93 14:25:00 Test Item Value Reference Range Interpretation Comments Culture: Aspirate/Body Fluid/Tissue No Growth (test code = Culture: Aspirate/Body Fluid/Tissue) [facility] [id number] 08:16:00 Test Item Value Reference Range Interpretation Comments Vitamin B12 Lvl (test code = Vitamin 689 463-1938 B12 Lvl) [facility] E[facility]5798[facility] 08:16:00 Test Item Value Reference Range Interpretation Comments Troponin-I (test code 0.04 See_Comment [Auto mated message] The = Troponin-I) system which g enerated this result transmit emerson reference range : <=0.40. The reference r yared was not used to interpr et this result as erinn l/abnormal. [facility] [id number] 08:16:00 Test Item Value Reference Range Interpretation Comments Magnesium Lvl (test code = Magnesium 1.8 1.8-2.4 Lvl) [facility] [id number] 08:16:00 Test Item Value Reference Range Interpretation Comments eGFR (test code = eGFR) 3 [facility] [id number] 08:16:00 Test Item Value Reference Range Interpretation Comments A/G Ratio (test code = A/G Ratio) 0.6 1 0.7-1.6 [facility] [id number] 08:16:00 Test Item Value Reference Range Interpretation Comments B/C Ratio (test code = B/C Ratio) 4 1 6-25 [facility] [id number] 08:16:00 Test Item Value Reference Range Interpretation Comments Globulin (test code = Globulin) 3.4 2.7-4.2 [facility]2019-06-29 08:16:00 Test Item Value Reference Range Interpretation Comments Bili Total (test code = Bili Total) 0.4 0.2-1.3 [facility]2019-06-29 08:16:00 Test Item Value Reference Range Interpretation Comments AGAP (test code = AGAP) 18.3 10.0-20.0 [facility]2019-06-29 08:16:00 Test Item Value Reference Range Interpretation Comments Chloride Lvl (test code = Chloride Lvl) 93 95-109 [facility]2019-06-29 08:16:00 Test Item Value Reference Range Interpretation Comments CO2 (test code = CO2) 23 24-32 [facility]2019-06-29 08:16:00 Test Item Value Reference Range Interpretation Comments Calcium Lvl (test code = Calcium Lvl) 8.1 8.5-10.5 [facility]2019-06-29 08:16:00 Test Item Value Reference Range Interpretation Comments Glucose Lvl (test code = Glucose Lvl) 57 70-99 [facility]2019-06-29 08:16:00 Test Item Value Reference Range Interpretation Comments BUN (test code = BUN) 60 7-22 [facility]2019-06-29 08:16:00 Test Item Value Reference Range Interpretation Comments Sodium Lvl (test code = Sodium Lvl) 130 135-145 [facility]2019-06-29 08:16:00 Test Item Value Reference Range Interpretation Comments Creatinine Lvl (test code = Creatinine 15.90 0.50-1.40 Lvl) [facility]2019-06-29 08:16:00 Test Item Value Reference Range Interpretation Comments Potassium Lvl (test code = Potassium 4.3 3.5-5.1 Lvl) [facility]2019-06-29 08:16:00 Test Item Value Reference Range Interpretation Comments ALT (test code = ALT) 21 See_Comment [Auto mated message] The system which ge nerated this result transmit emerson reference range : <=65. The reference range was not used to interpr et this result as erinn l/abnormal. [facility]2019-06-29 08:16:00 Test Item Value Reference Range Interpretation Comments Alk Phos (test code = Alk Phos) 76 39-136 [facility]2019-06-29 08:16:00 Test Item Value Reference Range Interpretation Comments AST (test code = AST) 16 See_Comment [Auto mated message] The system which ge nerated this result transmit emerson reference range : <=37. The reference range was not used to interpr et this result as erinn l/abnormal. [facility]2019-06-29 08:16:00 Test Item Value Reference Range Interpretation Comments Total Protein (test code = Total 5.6 6.4-8.4 Protein) [facility]2019-06-29 08:16:00 Test Item Value Reference Range Interpretation Comments Albumin Lvl (test code = Albumin Lvl) 2.2 3.5-5.0 [facility] TexasVnbififCVRFXRHCIF3807-60-25 08:16:00 Test Item Value Reference Range Interpretation Comments PTT (test code = PTT) 41.5 s 22.9-35.8 [facility] TexasPuyycedGBTKPSOHKS2234-87-35 08:16:00 Test Item Value Reference Range Interpretation Comments PT (test code = PT) 14.4 s 12.0-14.7 [facility] TexasTjppyknYHHRMIEWEL6828-94-46 08:16:00 Test Item Value Reference Range Interpretation Comments INR (test code = INR) 1.14 1 0.85-1.17 [facility] TexasJvvoolkXQRSDHOEWF1534-95-02 08:16:00 Test Item Value Reference Range Interpretation Comments RDW (test code = RDW) 15.5 11.5-14.5 [facility] TexasYipstvkZZYMZFDXIR0973-94-11 08:16:00 Test Item Value Reference Range Interpretation Comments Platelet (test code = Platelet) 139 133-450 [facility] TexasXlbvnmlIWJIKAYFQE5374-88-06 08:16:00 Test Item Value Reference Range Interpretation Comments MCH (test code = MCH) 28.7 pg 27.0-31.0 [facility] TexasLfzhdmdTTEXTJRGEC5358-66-01 08:16:00 Test Item Value Reference Range Interpretation Comments MCHC (test code = MCHC) 34.2 32.0-36.0 [facility] TexasDgmakugSMZKSUFOGF3538-07-66 08:16:00 Test Item Value Reference Range Interpretation Comments MCV (test code = MCV) 84.1 80.0-94.0 [facility] TexasNnlqsymCVHAFCAUPY8838-52-61 08:16:00 Test Item Value Reference Range Interpretation Comments Hgb (test code = Hgb) 11.4 14.0-18.0 [facility] TexasHcejbnbPRMQTBYCNZ3504-55-58 08:16:00 Test Item Value Reference Range Interpretation Comments Hct (test code = Hct) 33.2 42.0-54.0 [facility] TexasHhtwfuvTLFRFZJXTS1188-61-75 08:16:00 Test Item Value Reference Range Interpretation Comments WBC (test code = WBC) 10.2 3.7-10.4 [facility] TexasMmirjduHLRDXBBLQY5952-64-72 08:16:00 Test Item Value Reference Range Interpretation Comments RBC (test code = RBC) 3.95 4.70-6.10 [facility] TexasWxqzvsbEPMFPIQBBD1453-22-79 08:16:00 Test Item Value Reference Range Interpretation Comments MPV (test code = MPV) 8.3 7.4-10.4 [facility] TexasNhcphbpGVNHNSMCXT7258-40-78 08:16:00 Test Item Value Reference Range Interpretation Comments Segs (test code = Segs) 84.8 45.0-75.0 [facility] TexasHdfwifoPPNJWMSVTE5637-95-67 08:16:00 Test Item Value Reference Range Interpretation Comments Basophils # (test code 0.1 See_Comment [Aut omated message] The = Basophils #) system which generated this result tra nsmitted reference range : <=0.2. The reference r yared was not used to int erpret this result as normal/abnormal . [facility] TexasGerzlfcYDYMVLNXHT9855-51-92 08:16:00 Test Item Value Reference Range Interpretation Comments Basophils (test code = 0.5 See_Comment [Aut omated message] The Basophils) system which ge nerated this result tra nsmitted reference range : <=1.0. The reference r yared was not used to int erpret this result as normal/abnormal . [facility] TexasLtjvctgDJMDUZJZFR2985-42-58 08:16:00 Test Item Value Reference Range Interpretation Comments Eosinophils (test code = 1.2 See_Comment [A utomated message] The Eosinophils) system which ge nerated this result tra nsmitted reference range : <=4.0. The reference r yared was not used to int erpret this result as normal/abnormal . [facility] TexasWdttxvhAJPKRBIAMB0973-21-53 08:16:00 Test Item Value Reference Range Interpretation Comments Monocytes (test code = Monocytes) 6.5 2.0-12.0 [facility] TexasOcuvdouSGEBAUPSSU0711-30-66 08:16:00 Test Item Value Reference Range Interpretation Comments Lymphocytes (test code = Lymphocytes) 7.0 20.0-40.0 [facility] TexasRediiokABSPBNAHSB8878-31-02 08:16:00 Test Item Value Reference Range Interpretation Comments Eosinophils # (test code 0.1 See_Comment [A utomated message] The = Eosinophils #) system whic h generated this result tra nsmitted reference range : <=0.5. The reference r yared was not used to int erpret this result as normal/abnormal . [facility] TexasJlomgozZGIIWPLWIQ3288-18-33 08:16:00 Test Item Value Reference Range Interpretation Comments Monocytes # (test code 0.7 See_Comment [Aut omated message] The = Monocytes #) system which generated this result tra nsmitted reference range : <=0.8. The reference r yared was not used to int erpret this result as normal/abnormal . [facility] TexasSeclkdrZBWPTECSLV5461-12-65 08:16:00 Test Item Value Reference Range Interpretation Comments Lymphocytes # (test code = Lymphocytes 0.7 1.0-5.5 #) [facility] [place]UV[place]GUWYZ3375-44-30 08:16:00 Test Item Value Reference Range Interpretation Comments Neutrophils # (test code = Neutrophils 8.7 1.5-8.1 #) [facility] BZWXK1820-20-60 04:17:00 Test Item Value Reference Range Interpretation Comments Lactic Acid Lvl (test code = Lactic 0.3 0.5-2.2 Acid Lvl) [facility]uda[facility]ARDIAC HUAZSMU8039-37-27 02:25:00 Test Item Value Reference Range Interpretation Comments Troponin-I (test code 0.03 See_Comment [Auto mated message] The = Troponin-I) system which g enerated this result transmit emerson reference range : <=0.40. The reference r yared was not used to interpr et this result as erinn l/abnormal. [facility] BudaEixgqrbOMPPWB9860-39-98 02:25:00 Test Item Value Reference Range Interpretation Comments CHD Risk (test code = CHD Risk) 3.10 1 4.00-7.30 [facility] BudaFxascevPFHGOX2103-23-09 02:25:00 Test Item Value Reference Range Interpretation Comments VLDL (test code = VLDL) 21 1 [facility] BudaBuchagdGPIUVR8242-49-24 02:25:00 Test Item Value Reference Range Interpretation Comments HDL (test code = HDL) 58 [facility] BudaMuzkjlbLEKQOW0186-97-24 02:25:00 Test Item Value Reference Range Interpretation Comments LDL (Calculated) (test code = LDL 101 (Calculated)) [facility] BudaWbfiutlRNZKLK9686-64-98 02:25:00 Test Item Value Reference Range Interpretation Comments Chol (test code = Chol) 180 [facility] BudaQqqfnknHHHDYU6396-77-21 02:25:00 Test Item Value Reference Range Interpretation Comments Trig (test code = Trig) 103 [facility] SCSYHSMJC5501-31-26 02:25:00 Test Item Value Reference Range Interpretation Comments Hgb A1C (test code = Hgb A1C) 4.0 [facility]udaCHE[facility] NNLLV0800-90-09 12:41:00 Test Item Value Reference Range Interpretation Comments Phosphorus (test code = Phosphorus) 6.1 2.5-4.5 [facility]SebiwxtSVIXOEFZNNOC9619-45-18 12:41:00 Test Item Value Reference Range Interpretation Comments AGAP (test code = AGAP) 14.8 10.0-20.0 [facility] BranchJxoauyiJWHJKEJJGJAU1590-15-20 12:41:00 Test Item Value Reference Range Interpretation Comments eGFR (test code = eGFR) 4 [facility] BranchNgjhhrvOYJGZIBBAUEB4305-25-11 12:41:00 Test Item Value Reference Range Interpretation Comments CO2 (test code = CO2) 27 24-32 [facility] BranchNzxdrrjYCDORANFHKLP4668-95-25 12:41:00 Test Item Value Reference Range Interpretation Comments Calcium Lvl (test code = Calcium Lvl) 7.9 8.5-10.5 [facility] BranchFkeehgpBTWUWQCWYGCN9692-31-93 12:41:00 Test Item Value Reference Range Interpretation Comments Creatinine Lvl (test code = Creatinine 12.90 0.50-1.40 Lvl) [facility] BranchSlsnhfsUWDFHVBVPFJE4427-07-69 12:41:00 Test Item Value Reference Range Interpretation Comments BUN (test code = BUN) 60 7-22 [facility] BranchGgfghocCMDHPNRMOEVY6628-31-74 12:41:00 Test Item Value Reference Range Interpretation Comments Sodium Lvl (test code = Sodium Lvl) 139 135-145 [facility] BranchHuqhdcjKDDNTQTMTRRP3365-29-22 12:41:00 Test Item Value Reference Range Interpretation Comments Glucose Lvl (test code = Glucose Lvl) 93 70-99 [facility] BranchJccshzaXZHUSIYNZIHH6922-59-60 12:41:00 Test Item Value Reference Range Interpretation Comments Chloride Lvl (test code = Chloride Lvl) 102 95-109 [facility] BranchSbksqotUSFZSWCHUANF9180-74-59 12:41:00 Test Item Value Reference Range Interpretation Comments Potassium Lvl (test code = Potassium 4.8 3.5-5.1 Lvl) [facility] TexasIxoxotaEYPAOXPSOT9669-24-95 12:41:00 Test Item Value Reference Range Interpretation Comments MCHC (test code = MCHC) 35.3 32.0-36.0 [facility] TexasTjknyfrFYGUNMQYAG4227-99-80 12:41:00 Test Item Value Reference Range Interpretation Comments Hgb (test code = Hgb) 7.8 14.0-18.0 [facility] TexasBbpsccwNLSGFLQSHM9535-14-49 12:41:00 Test Item Value Reference Range Interpretation Comments Hct (test code = Hct) 22.0 42.0-54.0 [facility] TexasQufcbtaNRFPVRDNMT1351-09-24 12:41:00 Test Item Value Reference Range Interpretation Comments RBC (test code = RBC) 2.68 4.70-6.10 [facility] TexasHgyojrfFAANZSJSGS7969-75-93 12:41:00 Test Item Value Reference Range Interpretation Comments WBC (test code = WBC) 4.4 3.7-10.4 [facility] TexasUopoobhDONIHZNAPK5436-28-56 12:41:00 Test Item Value Reference Range Interpretation Comments RDW (test code = RDW) 14.5 11.5-14.5 [facility] TexasFbibetkOEYSORUORN6525-64-98 12:41:00 Test Item Value Reference Range Interpretation Comments MCV (test code = MCV) 82.1 80.0-94.0 [facility] TexasEldklriLZZFLYQEYC6124-43-61 12:41:00 Test Item Value Reference Range Interpretation Comments MCH (test code = MCH) 29.0 pg 27.0-31.0 [facility] TexasLqyvqeuQWGSODZSXM6242-18-24 12:41:00 Test Item Value Reference Range Interpretation Comments Platelet (test code = Platelet) 128 133-450 [facility] TexasUtmxwlsFVXBGOWPDZ2105-92-07 12:41:00 Test Item Value Reference Range Interpretation Comments MPV (test code = MPV) 7.3 7.4-10.4 [facility] TexasCxvctdvWVYQSJYZIV0110-74-00 12:41:00 Test Item Value Reference Range Interpretation Comments Monocytes # (test code 0.4 See_Comment [Aut omated message] The = Monocytes #) system which generated this result tra nsmitted reference range : <=0.8. The reference r yared was not used to int erpret this result as normal/abnormal . [facility] TexasFaaafeiCDMVBTNVOV5286-48-89 12:41:00 Test Item Value Reference Range Interpretation Comments Eosinophils # (test code 0.2 See_Comment [A utomated message] The = Eosinophils #) system whic h generated this result tra nsmitted reference range : <=0.5. The reference r yared was not used to int erpret this result as normal/abnormal . [facility] TexasVfjroxfXFWKHRCAUR3286-47-02 12:41:00 Test Item Value Reference Range Interpretation Comments Monocytes (test code = Monocytes) 9.7 2.0-12.0 [facility] TexasAufezhuZMNRGWCTAE2540-67-63 12:41:00 Test Item Value Reference Range Interpretation Comments Eosinophils (test code = 3.7 See_Comment [A utomated message] The Eosinophils) system which ge nerated this result tra nsmitted reference range : <=4.0. The reference r yared was not used to int erpret this result as normal/abnormal . [facility] TexasTyvrxwdNFYKAPPFKZ4097-95-96 12:41:00 Test Item Value Reference Range Interpretation Comments Basophils (test code = 0.8 See_Comment [Aut omated message] The Basophils) system which ge nerated this result tra nsmitted reference range : <=1.0. The reference r yared was not used to int erpret this result as normal/abnormal . [facility] TexasUnsthaaGWIMOXNLJZ8446-30-42 12:41:00 Test Item Value Reference Range Interpretation Comments Neutrophils # (test code = Neutrophils 3.0 1.5-8.1 #) [facility] [place]YwwtwibOMKPPPHWLZ0079-00-56 12:41:00 Test Item Value Reference Range Interpretation Comments Lymphocytes # (test code = Lymphocytes 0.8 1.0-5.5 #) [facility] TexasZhbvmqzIWPYFWRRYQ3024-70-89 12:41:00 Test Item Value Reference Range Interpretation Comments Segs (test code = Segs) 67.6 45.0-75.0 [facility] TexasRrxcijwLPLIBGIYJG6105-54-23 12:41:00 Test Item Value Reference Range Interpretation Comments Lymphocytes (test code = Lymphocytes) 18.2 20.0-40.0 [facility]2018-10-14 11:17:00 Test Item Value Reference Range Interpretation Comments Magnesium Lvl (test code = Magnesium 2.5 1.8-2.4 Lvl) [facility]2018-10-14 11:17:00 Test Item Value Reference Range Interpretation Comments Phosphorus (test code = Phosphorus) 8.3 2.5-4.5 [facility] BranchQeialhtMDOUDSVTWRTC9800-35-51 11:17:00 Test Item Value Reference Range Interpretation Comments CO2 (test code = CO2) 22 24-32 [facility] BranchSxuyhhuVKMNVGSCSNIS8387-44-57 11:17:00 Test Item Value Reference Range Interpretation Comments Calcium Lvl (test code = Calcium Lvl) 7.5 8.5-10.5 [facility] BranchIxmujfvATYATTVJBDNR5482-02-34 11:17:00 Test Item Value Reference Range Interpretation Comments Chloride Lvl (test code = Chloride Lvl) 98 95-109 [facility] BranchLxwdbihFAYWYOVRGTSW5739-76-39 11:17:00 Test Item Value Reference Range Interpretation Comments eGFR (test code = eGFR) 2 [facility] BranchIykesbhWFGUZJAMDBCN2832-46-35 11:17:00 Test Item Value Reference Range Interpretation Comments Creatinine Lvl (test code = Creatinine 19.20 0.50-1.40 Lvl) [facility] BranchIpvefdjBPLUPENLQKDG1063-99-02 11:17:00 Test Item Value Reference Range Interpretation Comments BUN (test code = BUN) 97 7-22 [facility] BranchQyxgcsqZRDVUXWZFYFK7144-14-23 11:17:00 Test Item Value Reference Range Interpretation Comments Potassium Lvl (test code = Potassium 4.7 3.5-5.1 Lvl) [facility] BranchVpaiswoXFNLMLPDSAJN0933-49-14 11:17:00 Test Item Value Reference Range Interpretation Comments Sodium Lvl (test code = Sodium Lvl) 135 135-145 [facility] BranchXluckkrGRWJCIJMZFVQ1370-79-43 11:17:00 Test Item Value Reference Range Interpretation Comments Glucose Lvl (test code = Glucose Lvl) 82 70-99 [facility] BranchVuqrmpcSKJHWXPROZXQ2030-06-93 11:17:00 Test Item Value Reference Range Interpretation Comments AGAP (test code = AGAP) 19.7 10.0-20.0 [facility] [place]SdlyeudVKBPIJWMVQ6421-61-68 11:17:00 Test Item Value Reference Range Interpretation Comments WBC (test code = WBC) 4.9 3.7-10.4 [facility] [place]YalsttwNOAVFAGXJO6581-96-39 11:17:00 Test Item Value Reference Range Interpretation Comments RBC (test code = RBC) 2.85 4.70-6.10 [facility] TexasInmpaoeBOLRQWOFZC5114-01-30 11:17:00 Test Item Value Reference Range Interpretation Comments MCV (test code = MCV) 82.3 80.0-94.0 [facility] [place]UlmsibnGLTYWUXWHL6067-51-04 11:17:00 Test Item Value Reference Range Interpretation Comments MCH (test code = MCH) 28.8 pg 27.0-31.0 [facility] TexasFpcuodaAWKDQOEIUW6478-88-95 11:17:00 Test Item Value Reference Range Interpretation Comments Hgb (test code = Hgb) 8.2 14.0-18.0 [facility] TexasSawzgerPSSXORKIMS1988 11:17:00 Test Item Value Reference Range Interpretation Comments Hct (test code = Hct) 23.4 42.0-54.0 [facility] [place]QqdevxzXCKIIALCIB8428-05-44 11:17:00 Test Item Value Reference Range Interpretation Comments RDW (test code = RDW) 15.0 11.5-14.5 [facility] TexasSuhzwapQGIAJMRBZH9601-87-52 11:17:00 Test Item Value Reference Range Interpretation Comments MCHC (test code = MCHC) 35.0 32.0-36.0 [facility] TexasElovadfHHHPTJRFVH1609-83-69 11:17:00 Test Item Value Reference Range Interpretation Comments MPV (test code = MPV) 7.4 7.4-10.4 [facility] [place]HnppddoAKQNTHABLD9962-36-25 11:17:00 Test Item Value Reference Range Interpretation Comments Platelet (test code = Platelet) 140 133-450 [facility] TexasWidtgsxFFXXZLNGTX2584-49-27 11:17:00 Test Item Value Reference Range Interpretation Comments Lymphocytes (test code = Lymphocytes) 20.3 20.0-40.0 [facility] TexasHphtumoKIILSZONEM7225-70-16 11:17:00 Test Item Value Reference Range Interpretation Comments Basophils (test code = 1.0 See_Comment [Aut omated message] The Basophils) system which ge nerated this result tra nsmitted reference range : <=1.0. The reference r yared was not used to int erpret this result as normal/abnormal . [facility] [place]QmoeuqmEZSHJNBUYM2596-37-01 11:17:00 Test Item Value Reference Range Interpretation Comments Segs (test code = Segs) 67.1 45.0-75.0 [facility] [place]UdilcddDNMJKEUBAO9573-20-48 11:17:00 Test Item Value Reference Range Interpretation Comments Neutrophils # (test code = Neutrophils 3.3 1.5-8.1 #) [facility] TexasLshdipxQSUTVEGGQI8425-21-91 11:17:00 Test Item Value Reference Range Interpretation Comments Eosinophils (test code = 3.1 See_Comment [A utomated message] The Eosinophils) system which ge nerated this result tra nsmitted reference range : <=4.0. The reference r yared was not used to int erpret this result as normal/abnormal . [facility] TexasDxvhndqFCYWZLQATG9082-31-68 11:17:00 Test Item Value Reference Range Interpretation Comments Monocytes (test code = Monocytes) 8.5 2.0-12.0 [facility] TexasGghtfhhOISAWJKKTH6979-82-11 11:17:00 Test Item Value Reference Range Interpretation Comments Monocytes # (test code 0.4 See_Comment [Aut omated message] The = Monocytes #) system which generated this result tra nsmitted reference range : <=0.8. The reference r yared was not used to int erpret this result as normal/abnormal . [facility] TexasLtlfpnyVTKOHNQBGD2031-81-73 11:17:00 Test Item Value Reference Range Interpretation Comments Lymphocytes # (test code = Lymphocytes 1.0 1.0-5.5 #) [facility] TexasPmvidhaPFAKXNQDKN6208-25-08 11:17:00 Test Item Value Reference Range Interpretation Comments Eosinophils # (test code 0.1 See_Comment [A utomated message] The = Eosinophils #) system [facility] h generated this result tra nsmitted reference range : <=0.5. The reference r yared was not used to int erpret this result as normal/abnormal . [facility] OnlyCtivnwdYYCCNMIDIG3724-65-88 11:17:00 Test Item Value Reference Range Interpretation Comments Hep Bs Ag (test code Negative *NA*(07/22/18 = Hep Bs Ag) 6:17 AM) [facility]CARTEL[facility] HCCCGZY3113-[facility]-12 02:46:00 Test Item Value Reference Range Interpretation Comments proBNP (test code = 98611 See_Comment [Automa emerson message] The proBNP) system which ge nerated this result tra nsmitted reference range : <=125. The reference r yared was not used to int erpret this result as erinn l/abnormal. [facility]2018-10-14 02:46:00 Test Item Value Reference Range Interpretation Comments Troponin-I (test code no gt See_Comment [Auto mated message] The = Troponin-I) system which g enerated this result transmit emerson reference range : <=0.40. The reference r yared was not used to interpr et this result as erinn l/abnormal. [employer]2018-10-14 02:46:00 Test Item Value Reference Range Interpretation Comments Total CK (test code = Total CK) 91 12-191 [employer] VKRNM1133-95-98 02:46:00 Test Item Value Reference Range Interpretation Comments Lipase Lvl (test code = Lipase Lvl) 95 73-393 [facility] TQJXM0303-32-16 02:46:00 Test Item Value Reference Range Interpretation Comments Globulin (test code = Globulin) 3.2 2.7-4.2 [employer] CFDGZ5487-93-23 02:46:00 Test Item Value Reference Range Interpretation Comments A/G Ratio (test code = A/G Ratio) 0.9 1 0.7-1.6 [employer] [id number] 02:46:00 Test Item Value Reference Range Interpretation Comments B/C Ratio (test code = B/C Ratio) 5 1 6-25 [employer] JHOKQ3959-75-30 02:46:00 Test Item Value Reference Range Interpretation Comments AGAP (test code = AGAP) 18.7 10.0-20.0 [employer] [id number] 02:46:00 Test Item Value Reference Range Interpretation Comments eGFR (test code = eGFR) 2 [facility]2018-10-14 02:46:00 Test Item Value Reference Range Interpretation Comments Calcium Lvl (test code = Calcium Lvl) 7.6 8.5-10.5 [facility]2018-10-14 02:46:00 Test Item Value Reference Range Interpretation Comments CO2 (test code = CO2) 24 24-32 [place] 265878-10-14 02:46:00 Test Item Value Reference Range Interpretation Comments Chloride Lvl (test code = Chloride Lvl) 98 95-109 [facility]2018-10-14 02:46:00 Test Item Value Reference Range Interpretation Comments Potassium Lvl (test code = Potassium 4.7 3.5-5.1 Lvl) [facility]2018-10-14 02:46:00 Test Item Value Reference Range Interpretation Comments Sodium Lvl (test code = Sodium Lvl) 136 135-145 [facility]2018-10-14 02:46:00 Test Item Value Reference Range Interpretation Comments Albumin Lvl (test code = Albumin Lvl) 2.8 3.5-5.0 [place] 265878-10-14 02:46:00 Test Item Value Reference Range Interpretation Comments ALT (test code = ALT) 13 See_Comment [Auto mated message] The system which ge nerated this result transmit emerson reference range : <=65. The reference range was not used to interpr et this result as erinn l/abnormal. [facility]2018-10-14 02:46:00 Test Item Value Reference Range Interpretation Comments AST (test code = AST) 9 See_Comment [Auto mated message] The system which ge nerated this result transmit emerson reference range : <=37. The reference range was not used to interpr et this result as erinn l/abnormal. [facility]2018-10-14 02:46:00 Test Item Value Reference Range Interpretation Comments Alk Phos (test code = Alk Phos) 57 39-136 [facility]2018-10-14 02:46:00 Test Item Value Reference Range Interpretation Comments Total Protein (test code = Total 6.0 6.4-8.4 Protein) [facility]2018-10-14 02:46:00 Test Item Value Reference Range Interpretation Comments Bili Total (test code = Bili Total) 0.4 0.2-1.3 [place] 265878-10-14 02:46:00 Test Item Value Reference Range Interpretation Comments Creatinine Lvl (test code = Creatinine 18.60 0.50-1.40 Lvl) [place] 265878-10-14 02:46:00 Test Item Value Reference Range Interpretation Comments Glucose Lvl (test code = Glucose Lvl) 89 70-99 [facility]2018-10-14 02:46:00 Test Item Value Reference Range Interpretation Comments BUN (test code = BUN) 95 7-22 [facility] TexasCnpwcdkGZOINZVEWJ6931-47-24 02:46:00 Test Item Value Reference Range Interpretation Comments Segs (test code = Segs) 66.2 45.0-75.0 [place] 129418-10-14 02:46:00 Test Item Value Reference Range Interpretation Comments Lymphocytes (test code = Lymphocytes) 21.4 20.0-40.0 [facility] TexasEzastovFSYQCVGVHZ0721-92-20 02:46:00 Test Item Value Reference Range Interpretation Comments Monocytes (test code = Monocytes) 7.7 2.0-12.0 [facility] TexasRhdxczpBLLKPDPWMH3781-45-45 02:46:00 Test Item Value Reference Range Interpretation Comments Lymphocytes # (test code = Lymphocytes 0.9 1.0-5.5 #) [facility] TexasLufefisLUNFMTCBZV4667-57-28 02:46:00 Test Item Value Reference Range Interpretation Comments Basophils (test code = 1.2 See_Comment [Aut omated message] The Basophils) system which ge nerated this result tra nsmitted reference range : <=1.0. The reference r yared was not used to int erpret this result as normal/abnormal . [facility] TexasTkcfumnBNMRHSGIYO5199-87-44 02:46:00 Test Item Value Reference Range Interpretation Comments Monocytes # (test code 0.3 See_Comment [Aut omated message] The = Monocytes #) system which generated this result tra nsmitted reference range : <=0.8. The reference r yared was not used to int erpret this result as normal/abnormal . [place] 129418-10-14 02:46:00 Test Item Value Reference Range Interpretation Comments Eosinophils # (test code 0.1 See_Comment [A utomated message] The = Eosinophils #) system whic h generated this result tra nsmitted reference range : <=0.5. The reference r yared was not used to int erpret this result as normal/abnormal . [facility] TexasAwwngdsCOUTBIFWTL8037-55-64 02:46:00 Test Item Value Reference Range Interpretation Comments Neutrophils # (test code = Neutrophils 2.7 1.5-8.1 #) [facility] TexasHyyonqjJMCHALDHWY8182-13-18 02:46:00 Test Item Value Reference Range Interpretation Comments Eosinophils (test code = 3.5 See_Comment [A utomated message] The Eosinophils) system which ge nerated this result tra nsmitted reference range : <=4.0. The reference r yared was not used to int erpret this result as normal/abnormal . [facility] TexasZdmybywUWBOCFIPQF0721-27-56 02:46:00 Test Item Value Reference Range Interpretation Comments PT (test code = PT) 14.4 s 12.0-14.7 [facility] TexasXpigemoMXQHJWODPN9723-57-96 02:46:00 Test Item Value Reference Range Interpretation Comments INR (test code = INR) 1.12 1 0.85-1.17 [facility] TexasDdbslhlIGUTTVMHVE0273-14-73 02:46:00 Test Item Value Reference Range Interpretation Comments PTT (test code = PTT) 37.1 s 22.9-35.8 [facility] TexasUalnqhrYPSYIKXNEN7763-12-46 02:46:00 Test Item Value Reference Range Interpretation Comments RDW (test code = RDW) 14.8 11.5-14.5 [facility] TexasPxwnyqvQRSQKTAQGW7759-12-97 02:46:00 Test Item Value Reference Range Interpretation Comments Platelet (test code = Platelet) 143 133-450 [facility] TexasUctnkmnUFGRMRYVCT9075-70-99 02:46:00 Test Item Value Reference Range Interpretation Comments MPV (test code = MPV) 7.6 7.4-10.4 [facility] TexasIzltrfzDFIXLQUODV0996-17-91 02:46:00 Test Item Value Reference Range Interpretation Comments RBC (test code = RBC) 2.83 4.70-6.10 [facility] TexasIopbnxxFWHFVDDFNY7157-32-90 02:46:00 Test Item Value Reference Range Interpretation Comments WBC (test code = WBC) 4.1 3.7-10.4 [facility] TexasJfkmjniRYSEVLKORF6446-54-58 02:46:00 Test Item Value Reference Range Interpretation Comments MCHC (test code = MCHC) 35.2 32.0-36.0 [facility] TexasTnhiaymHIBBKQZFOD0318-98-18 02:46:00 Test Item Value Reference Range Interpretation Comments MCH (test code = MCH) 28.8 pg 27.0-31.0 [facility] TexasYptemtpBVQBSFKGLZ1827-38-66 02:46:00 Test Item Value Reference Range Interpretation Comments Hgb (test code = Hgb) 8.1 14.0-18.0 [facility] TexasKzdlaihZIEAIEJPLN1781-71-32 02:46:00 Test Item Value Reference Range Interpretation Comments MCV (test code = MCV) 81.9 80.0-94.0 [facility] TexasHqzbakhXRPHFIRZNU9139-89-82 02:46:00 Test Item Value Reference Range Interpretation Comments Hct (test code = Hct) 23.2 42.0-54.0 [facility]2018-10-12 22:52:00 Test Item Value Reference Range Interpretation Comments BUN (test code = BUN) 86 7-22 [facility]2018-10-12 22:52:00 Test Item Value Reference Range Interpretation Comments Chloride Lvl (test code = Chloride Lvl) 97 95-109 [facility]2018-10-12 22:52:00 Test Item Value Reference Range Interpretation Comments Potassium Lvl (test code = Potassium 5.2 3.5-5.1 Lvl) [facility]2018-10-12 22:52:00 Test Item Value Reference Range Interpretation Comments Sodium Lvl (test code = Sodium Lvl) 135 135-145 [facility]2018-10-12 22:52:00 Test Item Value Reference Range Interpretation Comments Creatinine Lvl (test code = Creatinine 17.30 0.50-1.40 Lvl) [facility]2018-10-12 22:52:00 Test Item Value Reference Range Interpretation Comments Glucose Lvl (test code = Glucose Lvl) 98 70-99 [facility]2018-10-12 22:52:00 Test Item Value Reference Range Interpretation Comments eGFR (test code = eGFR) 3 [facility]2018-10-12 22:52:00 Test Item Value Reference Range Interpretation Comments Alk Phos (test code = Alk Phos) 70 39-136 [facility]SAM[facility] [id number] 22:52:00 Test Item Value Reference Range Interpretation Comments AST (test code = AST) 10 See_Comment [Auto mated message] The system which ge nerated this result transmit emerson reference range : <=37. The reference range was not used to interpr et this result as erinn l/abnormal. [facility]2018-10-12 22:52:00 Test Item Value Reference Range Interpretation Comments Bili Total (test code = Bili Total) 0.4 0.2-1.3 [facility]2018-10-12 22:52:00 Test Item Value Reference Range Interpretation Comments Total Protein (test code = Total 6.8 6.4-8.4 Protein) [facility]2018-10-12 22:52:00 Test Item Value Reference Range Interpretation Comments Calcium Lvl (test code = Calcium Lvl) 8.1 8.5-10.5 [facility] HospitalUndertoneSAMPSON REGION[facility] MEDICAL [id number] 22:52:00 Test Item Value Reference Range Interpretation Comments CO2 (test code = CO2) 24 24-32 [facility] HospitalUndertoneSAMPSON REGIONAL MEDICAL [id number] 22:52:00 Test Item Value Reference Range Interpretation Comments ALT (test code = ALT) 19 See_Comment [Auto mated message] The system which ge nerated this result transmit emerson reference range : <=65. The reference range was not used to interpr et this result as erinn l/abnormal. [facility]2018-10-12 22:52:00 Test Item Value Reference Range Interpretation Comments Albumin Lvl (test code = Albumin Lvl) 3.3 3.5-5.0 [facility] Hospital[facility] [id number] 22:52:00 Test Item Value Reference Range Interpretation Comments A/G Ratio (test code = A/G Ratio) 0.9 1 0.7-1.6 [facility]2018-10-12 22:52:00 Test Item Value Reference Range Interpretation Comments AGAP (test code = AGAP) 19.2 10.0-20.0 [facility]2018-10-12 22:52:00 Test Item Value Reference Range Interpretation Comments Globulin (test code = Globulin) 3.5 2.7-4.2 [facility]2018-10-12 22:52:00 Test Item Value Reference Range Interpretation Comments B/C Ratio (test code = B/C Ratio) 5 1 6-25 [facility] TexasXlrkrteBYWJRACXJP9574-94-51 22:52:00 Test Item Value Reference Range Interpretation Comments Platelet (test code = Platelet) 184 133-450 [facility] TexasGwqjjdxOAKWCOXJCM5443-38-62 22:52:00 Test Item Value Reference Range Interpretation Comments MPV (test code = MPV) 6.8 7.4-10.4 [facility] TexasBzwfsvfALQNALZWQD3476-27-09 22:52:00 Test Item Value Reference Range Interpretation Comments MCHC (test code = MCHC) 35.4 32.0-36.0 [facility] TexasIhmxaojCVZSODYUHL5615-34-16 22:52:00 Test Item Value Reference Range Interpretation Comments RDW (test code = RDW) 15.1 11.5-14.5 [facility] TexasAvoshemNMBLXAEFVA7658-78-50 22:52:00 Test Item Value Reference Range Interpretation Comments Hct (test code = Hct) 26.1 42.0-54.0 [facility] TexasCgkhuqlGPLBEPGPDK2253-61-16 22:52:00 Test Item Value Reference Range Interpretation Comments MCV (test code = MCV) 81.4 80.0-94.0 [facility] TexasKvibungGUQXTLYHDU6419-37-05 22:52:00 Test Item Value Reference Range Interpretation Comments MCH (test code = MCH) 28.8 pg 27.0-31.0 [facility] TexasCbydwszRKDPPEESNH9023-69-76 22:52:00 Test Item Value Reference Range Interpretation Comments WBC (test code = WBC) 5.4 3.7-10.4 [facility] TexasVjdgcmoRXZYYZIOAG1787-52-47 22:52:00 Test Item Value Reference Range Interpretation Comments RBC (test code = RBC) 3.20 4.70-6.10 [facility] TexasYgydmqsVSKDCHZGVY1097-36-53 22:52:00 Test Item Value Reference Range Interpretation Comments Hgb (test code = Hgb) 9.2 14.0-18.0 [facility] TexasHwjoafiWAPHNBABNP6509-58-89 22:52:00 Test Item Value Reference Range Interpretation Comments Segs (test code = Segs) 74.0 45.0-75.0 [facility] TexasMmfdpnoAYOBUAZHYX8602-27-06 22:52:00 Test Item Value Reference Range Interpretation Comments Lymphocytes (test code = Lymphocytes) 15.5 20.0-40.0 [facility] TexasZorodbqGAYCTGTNXO4554-66-18 22:52:00 Test Item Value Reference Range Interpretation Comments Monocytes (test code = Monocytes) 6.7 2.0-12.0 [facility] TexasNtmharoBIULPJRKOV2868-68-97 22:52:00 Test Item Value Reference Range Interpretation Comments Eosinophils (test code = 2.8 See_Comment [A utomated message] The Eosinophils) system which ge nerated this result tra nsmitted reference range : <=4.0. The reference r yared was not used to int erpret this result as normal/abnormal . [facility] TexasSqyhdkxPDBLQYJLKL9586-44-36 22:52:00 Test Item Value Reference Range Interpretation Comments Basophils (test code = 1.0 See_Comment [Aut omated message] The Basophils) system which ge nerated this result tra nsmitted reference range : <=1.0. The reference r yared was not used to int erpret this result as normal/abnormal . [facility] TexasMinnwaeFYVQLQPIYB3658-23-89 22:52:00 Test Item Value Reference Range Interpretation Comments Neutrophils # (test code = Neutrophils 4.0 1.5-8.1 #) [facility] TexasOduaiekDZSCBXNNQZ1220-56-08 22:52:00 Test Item Value Reference Range Interpretation Comments Basophils # (test code 0.1 See_Comment [Aut omated message] The = Basophils #) system which generated this result tra nsmitted reference range : <=0.2. The reference r yared was not used to int erpret this result as normal/abnormal . [facility] TexasBvorvjxEMHFNUTMGV4556-75-45 22:52:00 Test Item Value Reference Range Interpretation Comments Eosinophils # (test code 0.2 See_Comment [A utomated message] The = Eosinophils #) system whic h generated this result tra nsmitted reference range : <=0.5. The reference r yared was not used to int erpret this result as normal/abnormal . [facility] TexasOllrcjkDXQKMBNYIO6301-54-06 22:52:00 Test Item Value Reference Range Interpretation Comments Lymphocytes # (test code = Lymphocytes 0.8 1.0-5.5 #) [facility] TexasPnmxmzyELJVEAWSZW7115-83-22 22:52:00 Test Item Value Reference Range Interpretation Comments Monocytes # (test code 0.4 See_Comment [Aut omated message] The = Monocytes #) system which generated this result tra nsmitted reference range : <=0.8. The reference r yared was not used to int erpret this result as normal/abnormal . [facility]REF[facility] [id number] 15:54:00 Test Item Value Reference Range Interpretation Comments Test Name (test code = HLA TYPING RESULTS Test Name) [facility] [id number] 15:20:00 Test Item Value Reference Range Interpretation Comments ABO/RH Confirm (test code = ABO/RH O POS Confirm) [facility] AND [id number] 15:20:00 Test Item Value Reference Range Interpretation Comments UA Renal Epi (test code = UA Renal Epi) RARE [facility] AND [id number] 15:20:00 Test Item Value Reference Range Interpretation Comments UA Urobilinogen (test code = UA <=1.0 mg/dL 0.1-1.0 Urobilinogen) [facility] AND [id number] 15:20:00 Test Item Value Reference Range Interpretation Comments UA Glucose (test code = UA Glucose) 100mg/dL [facility] AND [id number] 15:20:00 Test Item Value Reference Range Interpretation Comments UA Sq Epi (test code = UA Sq Moderate /LPF Epi) [facility] AND [id number] 15:20:00 Test Item Value Reference Range Interpretation Comments UA Leuk Est (test code Small *ABN*(05/23/18 = UA Leuk Est) 10:20 AM) [facility] AND [id number] 15:20:00 Test Item Value Reference Range Interpretation Comments UA Ketones (test code = UA Negative mg/dL Ketones) [facility] AND [id number] 15:20:00 Test Item Value Reference Range Interpretation Comments UA RBC (test code = no gt See_Comment [Automa emerson message] The UA RBC) system which ge nerated this result transmit emerson reference range : <=2. The reference range was not used to interpr et this result as erinn l/abnormal. [facility] AND [id number] 15:20:00 Test Item Value Reference Range Interpretation Comments UA WBC (test code = 9 See_Comment [Automa emerson message] The UA WBC) system which ge nerated this result transmit emerson reference range : <=5. The reference range was not used to interpr et this result as erinn l/abnormal. [facility] AND [id number] 15:20:00 Test Item Value Reference Range Interpretation Comments UA Nitrite (test code Negative (05/23/18 10:20 = UA Nitrite) AM) [facility] AND [id number] 15:20:00 Test Item Value Reference Range Interpretation Comments UA Blood (test code = Trace *ABN*(05/23/18 UA Blood) 10:20 AM) [facility] AND [id number] 15:20:00 Test Item Value Reference Range Interpretation Comments UA Bili (test code = Negative *NA*(05/23/18 UA Bili) 10:20 AM) [facility] AND [id number] 15:20:00 Test Item Value Reference Range Interpretation Comments UA Mucus (test code = UA Mucus) Few /LPF [facility] AND [id number] 15:20:00 Test Item Value Reference Range Interpretation Comments UA Protein (test code = UA >=300 mg/dL Protein) [facility] AND [id number] 15:20:00 Test Item Value Reference Range Interpretation Comments UA pH (test code = UA pH) 6.5 1 5.0-8.0 [facility] AND [id number] 15:20:00 Test Item Value Reference Range Interpretation Comments UA Spec Grav (test code = UA Spec 1.008 1 Grav) [facility] AND [id number] 15:20:00 Test Item Value Reference Range Interpretation Comments UA Turbidity (test code Slight *ABN*(05/23/18 = UA Turbidity) 10:20 AM) [facility] AND [id number] 15:20:00 Test Item Value Reference Range Interpretation Comments UA Color (test code = Yellow *NA*(05/23/18 UA Color) 10:20 AM) [facility]2018-08-15 15:20:00 Test Item Value Reference Range Interpretation Comments U Microalb (test code = U Microalb) 2940.0 [facility]2018-08-15 15:20:00 Test Item Value Reference Range Interpretation Comments U Prot/Creat (test code = U 6.61 1 Prot/Creat) [facility] [id number] 15:20:00 Test Item Value Reference Range Interpretation Comments U Creatinine (test code = U Creatinine) 55.00 [facility]2018-08-15 15:20:00 Test Item Value Reference Range Interpretation Comments U Protein (test code = U Protein) 363.8 [facility] [id number] 14:55:00 Test Item Value Reference Range Interpretation Comments % Satur Fe (test code = % Satur Fe) 35 12-57 [facility] [id number] 14:55:00 Test Item Value Reference Range Interpretation Comments UIBC (test code = UIBC) 179 110-370 [facility]2018-08-15 14:55:00 Test Item Value Reference Range Interpretation Comments TIBC (test code = TIBC) 276 228-428 [facility] [id number] 14:55:00 Test Item Value Reference Range Interpretation Comments Iron (test code = Iron) 97 45-160 [facility] [id number] 14:55:00 Test Item Value Reference Range Interpretation Comments Ferritin Lvl (test code = Ferritin Lvl) 292 22-275 [facility] [id number] 14:55:00 Test Item Value Reference Range Interpretation Comments OP ABORh Int (test code = OP ABORh Int) O POS [facility] [id number] 14:55:00 Test Item Value Reference Range Interpretation Comments Phosphorus (test code = Phosphorus) 8.0 2.5-4.5 [facility] [id number] 14:55:00 Test Item Value Reference Range Interpretation Comments Magnesium Lvl (test code = Magnesium 2.5 1.8-2.4 Lvl) [facility] [id number] 14:55:00 Test Item Value Reference Range Interpretation Comments Vitamin D, 25-OH, Total (test code = 26.3 30.0-100.0 Vitamin D, 25-OH, Total) [facility] [id number] 14:55:00 Test Item Value Reference Range Interpretation Comments Uric Acid (test code = Uric Acid) 3.5 3.8-8.0 [facility]2018-08-15 14:55:00 Test Item Value Reference Range Interpretation Comments eGFR (test code = eGFR) 7 [facility]2018-08-15 14:55:00 Test Item Value Reference Range Interpretation Comments Alk Phos (test code = Alk Phos) 80 39-136 [facility]2018-08-15 14:55:00 Test Item Value Reference Range Interpretation Comments Bili Total (test code = Bili Total) 0.4 0.2-1.3 [facility]2018-08-15 14:55:00 Test Item Value Reference Range Interpretation Comments Albumin Lvl (test code = Albumin Lvl) 4.3 3.5-5.0 [facility]2018-08-15 14:55:00 Test Item Value Reference Range Interpretation Comments ALT (test code = ALT) 22 See_Comment [Auto mated message] The system which ge nerated this result transmit emerson reference range : <=65. The reference range was not used to interpr et this result as erinn l/abnormal. [facility]2018-08-15 14:55:00 Test Item Value Reference Range Interpretation Comments Calcium Lvl (test code = Calcium Lvl) 8.8 8.5-10.5 [facility]2018-08-15 14:55:00 Test Item Value Reference Range Interpretation Comments Total Protein (test code = Total 8.1 6.4-8.4 Protein) [facility]2018-08-15 14:55:00 Test Item Value Reference Range Interpretation Comments AST (test code = AST) 12 See_Comment [Auto mated message] The system which ge nerated this result transmit emerson reference range : <=37. The reference range was not used to interpr et this result as erinn l/abnormal. [facility]2018-08-15 14:55:00 Test Item Value Reference Range Interpretation Comments CO2 (test code = CO2) 26 24-32 [facility]2018-08-15 14:55:00 Test Item Value Reference Range Interpretation Comments Chloride Lvl (test code = Chloride Lvl) 97 95-109 [facility]2018-08-15 14:55:00 Test Item Value Reference Range Interpretation Comments Potassium Lvl (test code = Potassium 3.8 3.5-5.1 Lvl) [facility]2018-08-15 14:55:00 Test Item Value Reference Range Interpretation Comments Creatinine Lvl (test code = Creatinine 8.22 0.50-1.40 Lvl) [facility]2018-08-15 14:55:00 Test Item Value Reference Range Interpretation Comments Sodium Lvl (test code = Sodium Lvl) 136 135-145 [facility]2018-08-15 14:55:00 Test Item Value Reference Range Interpretation Comments BUN (test code = BUN) 59 7-22 [facility]2018-08-15 14:55:00 Test Item Value Reference Range Interpretation Comments Glucose Lvl (test code = Glucose Lvl) 98 70-99 [facility]2018-08-15 14:55:00 Test Item Value Reference Range Interpretation Comments Globulin (test code = Globulin) 3.8 2.7-4.2 [facility]2018-08-15 14:55:00 Test Item Value Reference Range Interpretation Comments A/G Ratio (test code = A/G Ratio) 1.1 1 0.7-1.6 [facility]2018-08-15 14:55:00 Test Item Value Reference Range Interpretation Comments AGAP (test code = AGAP) 16.8 10.0-20.0 [facility]2018-08-15 14:55:00 Test Item Value Reference Range Interpretation Comments B/C Ratio (test code = B/C Ratio) 7 1 6-25 [facility] [id number] 14:55:00 Test Item Value Reference Range Interpretation Comments Phencyclidine Scr (test Negative (05/23/18 code = Phencyclidine Scr) 9:55 AM) [facility] [id number] 14:55:00 Test Item Value Reference Range Interpretation Comments 6-Acetylmor Scr (test Negative (05/23/18 9:55 code = 6-Acetylmor AM) Scr) [facility] [id number] 14:55:00 Test Item Value Reference Range Interpretation Comments Opiate Scr (test code Positive *ABN*(05/23/18 = Opiate Scr) 9:55 AM) [facility] [id number] 14:55:00 Test Item Value Reference Range Interpretation Comments Methadone Scr (test Negative (05/23/18 9:55 code = Methadone Scr) AM) [facility] [id number] 14:55:00 Test Item Value Reference Range Interpretation Comments Rosa M Scr (test code = Negative (05/23/18 9:55 Rosa M Scr) AM) [facility] [id number] 14:55:00 Test Item Value Reference Range Interpretation Comments Cutoff Values (test See Note (05/23/18 9:55 code = Cutoff Values) AM) [facility] [id number] 14:55:00 Test Item Value Reference Range Interpretation Comments Cocaine Scr (test code Negative (05/23/18 9:55 = Cocaine Scr) AM) [facility] [id number] 14:55:00 Test Item Value Reference Range Interpretation Comments Amph Scr (test code = Negative (05/23/18 9:55 Amph Scr) AM) [facility] [id number] 14:55:00 Test Item Value Reference Range Interpretation Comments Cannab Scr (test code Negative (05/23/18 9:55 = Cannab Scr) AM) [facility] [id number] 14:55:00 Test Item Value Reference Range Interpretation Comments Benzodiaz Scr (test Positive *ABN*(05/23/18 code = Benzodiaz Scr) 9:55 AM) [facility] [id number] 14:55:00 Test Item Value Reference Range Interpretation Comments Opiate Qnt (test code = See Note 2(05/23/18 Opiate Qnt) 9:55 AM) [facility] [id number] 14:55:00 Test Item Value Reference Range Interpretation Comments Benzodiaz Qnt (test code See Note 1(05/23/18 = Benzodiaz Qnt) 9:55 AM) [facility] [id number] 14:55:00 Test Item Value Reference Range Interpretation Comments Eosinophils # (test code 0.3 See_Comment [A utomated message] The = Eosinophils #) system whic h generated this result tra nsmitted reference range : <=0.5. The reference r yared was not used to int erpret this result as normal/abnormal . [facility] [id number] 14:55:00 Test Item Value Reference Range Interpretation Comments Basophils # (test code 0.1 See_Comment [Aut omated message] The = Basophils #) system which generated this result tra nsmitted reference range : <=0.2. The reference r yared was not used to int erpret this result as normal/abnormal . [facility] TexasKwsoiasVZFCHZRKBF4606-96-68 14:55:00 Test Item Value Reference Range Interpretation Comments Neutrophils # (test code = Neutrophils 3.9 1.5-8.1 #) [facility] Tex[id number] 14:55:00 Test Item Value Reference Range Interpretation Comments Lymphocytes # (test code = Lymphocytes 1.3 1.0-5.5 #) [facility] Tex[id number] 14:55:00 Test Item Value Reference Range Interpretation Comments Monocytes # (test code 0.5 See_Comment [Aut omated message] The = Monocytes #) system which generated this result tra nsmitted reference range : <=0.8. The reference r yared was not used to int erpret this result as normal/abnormal . [facility] Tex[id number] 14:55:00 Test Item Value Reference Range Interpretation Comments Basophils (test code = 0.9 See_Comment [Aut omated message] The Basophils) system which ge nerated this result tra nsmitted reference range : <=1.0. The reference r yared was not used to int erpret this result as normal/abnormal . [facility] TexasCaldmqpYCPDTQLVQO5320-04-60 14:55:00 Test Item Value Reference Range Interpretation Comments Monocytes (test code = Monocytes) 7.7 2.0-12.0 [facility] TexasN[id number] 14:55:00 Test Item Value Reference Range Interpretation Comments Eosinophils (test code = 4.3 See_Comment [A utomated message] The Eosinophils) system which ge nerated this result tra nsmitted reference range : <=4.0. The reference r yared was not used to int erpret this result as normal/abnormal . [facility] TexasGwhvxqoGJJHDIQJWE5345-15-10 14:55:00 Test Item Value Reference Range Interpretation Comments Lymphocytes (test code = Lymphocytes) 22.0 20.0-40.0 [facility] Tex[id number] 14:55:00 Test Item Value Reference Range Interpretation Comments Segs (test code = Segs) 65.1 45.0-75.0 [facility] TexasFwzrkxkXQEVLYBEXL0826-49-46 14:55:00 Test Item Value Reference Range Interpretation Comments INR (test code = INR) 1.06 1 0.85-1.17 [facility] TexasRndznsxKGEQNUYDEG8274-11-11 14:55:00 Test Item Value Reference Range Interpretation Comments PT (test code = PT) 13.8 s 12.0-14.7 [facility] TexasIpjxekbSCSOKPXXIV4632-99-55 14:55:00 Test Item Value Reference Range Interpretation Comments PTT (test code = PTT) 35.0 s 22.9-35.8 [facility] TexasPterxgpDQGYADCFGL8338-62-49 14:55:00 Test Item Value Reference Range Interpretation Comments RDW (test code = RDW) 18.1 11.5-14.5 [facility] TexasWtxkbjmPEAYXUPTZW5637-31-07 14:55:00 Test Item Value Reference Range Interpretation Comments MPV (test code = MPV) 8.0 7.4-10.4 [facility] TexasOkzkzjdSYKHHTGJTC4257-09-78 14:55:00 Test Item Value Reference Range Interpretation Comments Platelet (test code = Platelet) 228 133-450 [facility] TexasKzojtpxTYFGFOKCVG0718-89-28 14:55:00 Test Item Value Reference Range Interpretation Comments MCHC (test code = MCHC) 33.3 32.0-36.0 [facility] TexasEbxrcvrIVVCULKGIB5265-43-50 14:55:00 Test Item Value Reference Range Interpretation Comments RBC (test code = RBC) 4.54 4.70-6.10 [facility] TexasAvqrxjmQZMHOIZPJZ5588-31-80 14:55:00 Test Item Value Reference Range Interpretation Comments WBC (test code = WBC) 6.1 3.7-10.4 [facility] Tex[id number] 14:55:00 Test Item Value Reference Range Interpretation Comments MCV (test code = MCV) 80.9 80.0-94.0 [facility] TexasOpetrztFLZQNEQYUT4944-46-84 14:55:00 Test Item Value Reference Range Interpretation Comments Hct (test code = Hct) 36.7 42.0-54.0 [facility] TexasWrynksrBIKITLBOXZ7041-67-08 14:55:00 Test Item Value Reference Range Interpretation Comments MCH (test code = MCH) 27.0 pg 27.0-31.0 [place] [id number] 14:55:00 Test Item Value Reference Range Interpretation Comments Hgb (test code = Hgb) 12.2 14.0-18.0 [facility] Bu[id number] 14:55:00 Test Item Value Reference Range Interpretation Comments Varicella IgG (test code = Varicella no gt IgG) [facility] Bu[id number] 14:55:00 Test Item Value Reference Range Interpretation Comments Varicella IgM (test no gt See_Comment [Automa emerson message] The code = Varicella IgM) system which generated this result tra nsmitted reference range : <=0.90. The reference r yared was not used to int erpret this result as normal/abnormal . [facility]udaSwrpvbnFQWNHTYKPD1370-10-10 14:55:00 Test Item Value Reference Range Interpretation Comments Treponemal Ab (test code Non-Reactive = Treponemal Ab) *NA*(05/23/18 9:55 AM) [facility] BudaLskmfldVSSUCJQLWD8435-92-94 14:55:00 Test Item Value Reference Range Interpretation Comments T-Spot.TB (test code Negative (05/23/18 9:55 = T-Spot.TB) AM) [facility] BudaBodpwkcXWLZMJNDSS0031-83-76 14:55:00 Test Item Value Reference Range Interpretation Comments Gamma % (test code = Gamma %) 18.2 11.1-18.7 [facility] BudaMqhqvkjZUBUCKBCJW5102-67-81 14:55:00 Test Item Value Reference Range Interpretation Comments Alpha 2 % (test code = Alpha 2 %) 7.8 7.0-11.9 [facility] BudaYsggkasXWCRZRTQOF9998-91-25 14:55:00 Test Item Value Reference Range Interpretation Comments Beta % (test code = Beta %) 9.5 7.8-13.7 [facility] BudaCtlnwceQMAPKETRGJ0670-22-19 14:55:00 Test Item Value Reference Range Interpretation Comments Albumin % (test code = Albumin %) 60.9 55.8-66.1 [facility] BudaVywkorcXEKPFTYWMG6201-57-91 14:55:00 Test Item Value Reference Range Interpretation Comments Alpha 1 % (test code = Alpha 1 %) 3.6 2.8-4.9 [facility] BudaQymfbcjBOTOSPKJDZ4207-29-22 14:55:00 Test Item Value Reference Range Interpretation Comments Gamma Glob (test code = Gamma Glob) 1.47 0.71-1.57 [facility] CenterQeezyjpBMTHAWIRUL1324-36-78 14:55:00 Test Item Value Reference Range Interpretation Comments Tot Prot (SPE) (test code = Tot Prot 8.1 6.4-8.4 (SPE)) [facility] CenterOvixahjGMURZNWRYB0402-98-51 14:55:00 Test Item Value Reference Range Interpretation Comments Beta Glob (test code = Beta Glob) 0.77 0.50-1.15 [facility] CenterHkihxohIHNIDNVVFD3812-16-90 14:55:00 Test Item Value Reference Range Interpretation [...] and concur with the resident's interpretation. CPT 60366-UU [facility] CenterWrhwdeoMCSYCFMOOF8122-96-63 14:55:00 Test Item Value Reference Range Interpretation Comments Albumin (SPE) (test code = Albumin 4.93 3.57-5.55 (SPE)) [facility] CenterMoihoykKPSGEQYKQE4781-90-99 14:55:00 Test Item Value Reference Range Interpretation Comments Alpha 1 Glob (test code = Alpha 1 Glob) 0.29 0.18-0.41 [facility] CenterAiyehphHDCPDGJDYP5888-23-81 14:55:00 Test Item Value Reference Range Interpretation Comments Alpha 2 Glob (test code = Alpha 2 Glob) 0.63 0.45-1.00 [facility] CenterFaeslvaUPEWTMLYHX2201-32-94 14:55:00 Test Item Value Reference Range Interpretation Comments [place]/Lambda Free Light Chains Ratio 2.18 0.26-1.65 (test code = [place]/Lambda Free Light Chains Ratio) [facility] CenterCkfcihaSMMXNMARKG1203-32-24 14:55:00 Test Item Value Reference Range Interpretation Comments Lambda Free Light Chains (test code = 89.85 5.70-26.30 Lambda Free Light Chains) [facility] CenterVfhibkfOFTLGSMUCF2410-53-96 14:55:00 Test Item Value Reference Range Interpretation Comments [place] Free [place] Chains (test code = 196.11 3.30-19.40 [place] Free [place] Chains) [facility] CenterCgxkbcjSIGJGAMLVN4836-12-12 14:55:00 Test Item Value Reference Range Interpretation Comments HSV 1 IgG (test code = HSV 1 IgG) no gt [facility] CenterWhenxjkZBONVGXHMI8474-30-31 14:55:00 Test Item Value Reference Range Interpretation Comments HSV 2 IgG (test code = HSV 2 IgG) no gt [facility] CenterSmbtsjhSSHSWBANKT6549-50-59 14:55:00 Test Item Value Reference Range Interpretation Comments CMV IgM (test code = CMV IgM) 0.2 [facility] CenterNnhxkdoUDZMMTOMLL4102-45-67 14:55:00 Test Item Value Reference Range Interpretation Comments CMV IgG (test code = Reactive *ABN*(05/23/18 CMV IgG) 9:55 AM) [facility] CenterEfjetnqXJGAHUSDRD3761-95-43 14:55:00 Test Item Value Reference Range Interpretation Comments EBV VCA IgG (test code = EBV VCA IgG) no gt [facility] CenterYzekjtcDPCBCQKYIN0854-61-43 14:55:00 Test Item Value Reference Range Interpretation Comments Hep Bs Ab (test code = Hep Bs Ab) 4.5 [facility] CenterCwpdeyzWOIKIABQMH5536-40-84 14:55:00 Test Item Value Reference Range Interpretation Comments Hep C Ab (test code = Negative *NA*(05/23/18 Hep C Ab) 9:55 AM) [facility] CenterDobljntOEMSYSVSZA0879-30-60 14:55:00 Test Item Value Reference Range Interpretation Comments EBV VCA IgM (test code = EBV VCA IgM) no gt [facility] CenterWepzujwORYYSKAQEF2820-71-68 14:55:00 Test Item Value Reference Range Interpretation Comments Hep Bs Ag (test code Negative *NA*(05/23/18 = Hep Bs Ag) 9:55 AM) [facility] CenterLdizdveZJYXYQOXMS1656-75-74 14:55:00 Test Item Value Reference Range Interpretation Comments Hep B Core Ab (test Negative *NA*(05/23/18 code = Hep B Core Ab) 9:55 AM) [facility] CenterNwuoxlfEDWZOHBADU7713-28-89 14:55:00 Test Item Value Reference Range Interpretation Comments HIV Ag/Ab 4th Gen Negative *NA*(05/23/18 (test code = HIV 9:55 AM) Ag/Ab 4th Gen) [facility] CenterAcqftobNWMSRODSZS7340-13-59 14:55:00 Test Item Value Reference Range Interpretation Comments MIKE Ser Interp The serum immunofixation (test code = MIKE electrophoresis Ser Interp) demonstrates polyclonal distribution of immunoglobulins. No monoclonal immunoglobulins are detected. The electronic medical record has been reviewed for relevant history. I have personally reviewed the test results and concur with the resident's interpretation. CPT 13377-ZV [facility] HospitalSxzoyjiWEMKMAEDMC5356-31-23 14:55:00 Test Item Value Reference Range Interpretation Comments MIKE Ser Pattern Diffusely staining (test code = MIKE immunoreactivity is present Ser Pattern) in the IgG, IgA, IgM, kappa, and lambda lanes in a normal polyclonal distribution. No monoclonal immunoglobulins are detected. [facility] HospitalDqeltsjSYJBCB8531-60-32 14:55:00 Test Item Value Reference Range Interpretation Comments VLDL (test code = VLDL) 30 1 [facility] BudaMinlnynVGPASD7600-40-39 14:55:00 Test Item Value Reference Range Interpretation Comments LDL (Calculated) (test code = LDL 74 (Calculated)) [facility] BudaPydqwkwVVKWZI7456-99-16 14:55:00 Test Item Value Reference Range Interpretation Comments Chol (test code = Chol) 176 [facility] HospitalFzoaungHSXYVU3249-59-24 14:55:00 Test Item Value Reference Range Interpretation Comments HDL (test code = HDL) 72 [facility] HospitalLvvupwsCXMCGA7254-72-79 14:55:00 Test Item Value Reference Range Interpretation Comments Trig (test code = Trig) 152 [facility] HospitalEejeaavWHRTTE9558-62-76 14:55:00 Test Item Value Reference Range Interpretation Comments CHD Risk (test code = CHD Risk) 2.44 1 4.00-7.30 [facility] HospitalannPARASITOLOGY - GWERGGKM1808-06-29 14:55:00 Test Item Value Reference Range Interpretation Comments Strongyloides Antibodies (test code Negative = Strongyloides Antibodies) [facility] BudaPARATHYROID GJLXKPS4312-03-05 14:55:00 Test Item Value Reference Range Interpretation Comments PTH Intact (test code = PTH Intact) 286.0 18.4-80.1 [facility] BudaSPECIAL BJYDCCXBA3313-37-87 14:55:00 Test Item Value Reference Range Interpretation Comments PSA (test code = PSA) 0.46 See_Comment [Auto mated message] The system which ge nerated this result transmit emerson reference range : <=4.00. The reference r yared was not used to interpr et this result as erinn l/abnormal. [facility] HospitalTravelLine CSYKRGDAE9784-05-99 14:55:00 Test Item Value Reference Range Interpretation Comments Hgb A1C (test code = Hgb A1C) 4.9 [facility] BudaBioDetego HLEQUQSMF8066-62-94 14:55:00 Test Item Value Reference Range Interpretation Comments Nicotine Lvl (test code = None Detected Nicotine Lvl) [facility] HospitalTravelLine SJQOHDKFZ5444-74-57 14:55:00 Test Item Value Reference Range Interpretation Comments Cotinine Lvl (test code = None Detected Cotinine Lvl) [facility] Farmeron2018-07-08 12:03:00 Test Item Value Reference Range Interpretation Comments Troponin-I (test code 0.04 See_Comment [Auto mated message] The = Troponin-I) system which g enerated this result transmit emerson reference range : <=0.40. The reference r yared was not used to interpr et this result as erinn l/abnormal. [facility]2018-07-08 12:03:00 Test Item Value Reference Range Interpretation Comments Total CK (test code = Total CK) 26 -191 [facility]2018-07-08 07:54:00 Test Item Value Reference Range Interpretation Comments Troponin-I (test code 0.02 See_Comment [Auto mated message] The = Troponin-I) system which g enerated this result transmit emerson reference range : <=0.40. The reference r yared was not used to interpr et this result as erinn l/abnormal. [facility]2018-07-08 07:54:00 Test Item Value Reference Range Interpretation Comments Total CK (test code = Total CK) 31 -191 [facility] [employer] [id number] 07:54:00 Test Item Value Reference Range Interpretation Comments Magnesium Lvl (test code = Magnesium 1.9 1.8-2.4 Lvl) [facility] [employer] GJPGZ8478-58-04 07:54:00 Test Item Value Reference Range Interpretation Comments B/C Ratio (test code = B/C Ratio) 6 1 6-25 [facility] [employer] RRQSA8283-06-03 07:54:00 Test Item Value Reference Range Interpretation Comments Albumin Lvl (test code = Albumin Lvl) 3.3 3.5-5.0 [facility]2018-07-08 07:54:00 Test Item Value Reference Range Interpretation Comments A/G Ratio (test code = A/G Ratio) 0.9 1 0.7-1.6 [place] 265878-07-08 07:54:00 Test Item Value Reference Range Interpretation Comments Total Protein (test code = Total 7.1 6.4-8.4 Protein) [facility]2018-07-08 07:54:00 Test Item Value Reference Range Interpretation Comments Globulin (test code = Globulin) 3.8 2.7-4.2 [place] 265878-07-08 07:54:00 Test Item Value Reference Range Interpretation Comments ALT (test code = ALT) 18 See_Comment [Auto mated message] The system which ge nerated this result transmit emerson reference range : <=65. The reference range was not used to interpr et this result as erinn l/abnormal. [place] 265878-07-08 07:54:00 Test Item Value Reference Range Interpretation Comments AST (test code = AST) 14 See_Comment [Auto mated message] The system which ge nerated this result transmit emerson reference range : <=37. The reference range was not used to interpr et this result as erinn l/abnormal. [facility]2018-07-08 07:54:00 Test Item Value Reference Range Interpretation Comments Alk Phos (test code = Alk Phos) 82 39-136 [facility]2018-07-08 07:54:00 Test Item Value Reference Range Interpretation Comments Bili Total (test code = Bili Total) 0.5 0.2-1.3 [facility]2018-07-08 07:54:00 Test Item Value Reference Range Interpretation Comments eGFR (test code = eGFR) 10 [facility]2018-07-08 07:54:00 Test Item Value Reference Range Interpretation Comments Potassium Lvl (test code = Potassium 3.2 3.5-5.1 Lvl) [facility]2018-07-08 07:54:00 Test Item Value Reference Range Interpretation Comments Chloride Lvl (test code = Chloride Lvl) 103 95-109 [facility]2018-07-08 07:54:00 Test Item Value Reference Range Interpretation Comments Glucose Lvl (test code = Glucose Lvl) 95 70-99 [facility]2018-07-08 07:54:00 Test Item Value Reference Range Interpretation Comments BUN (test code = BUN) 34 7-22 [place] 265878-07-08 07:54:00 Test Item Value Reference Range Interpretation Comments Creatinine Lvl (test code = Creatinine 5.83 0.50-1.40 Lvl) [facility]2018-07-08 07:54:00 Test Item Value Reference Range Interpretation Comments Sodium Lvl (test code = Sodium Lvl) 138 135-145 [place] 265878-07-08 07:54:00 Test Item Value Reference Range Interpretation Comments CO2 (test code = CO2) 23 24-32 [facility]2018-07-08 07:54:00 Test Item Value Reference Range Interpretation Comments AGAP (test code = AGAP) 15.2 10.0-20.0 [place] 265878-07-08 07:54:00 Test Item Value Reference Range Interpretation Comments Calcium Lvl (test code = Calcium Lvl) 8.5 8.5-10.5 [place] 265878-07-08 07:54:00 Test Item Value Reference Range Interpretation Comments Phosphorus (test code = Phosphorus) 4.2 2.5-4.5 [facility]WpjdoghQHVMZDQRJO1314-71-21 07:54:00 Test Item Value Reference Range Interpretation Comments Lymphocytes # (test code = Lymphocytes 1.5 1.0-5.5 #) [facility] TexasHvxakqxSESXZRBGUU1475-91-96 07:54:00 Test Item Value Reference Range Interpretation Comments Monocytes # (test code 0.5 See_Comment [Aut omated message] The = Monocytes #) system which generated this result tra nsmitted reference range : <=0.8. The reference r yared was not used to int erpret this result as normal/abnormal . [facility] TexasXtmpyliHQGYHVQNMB5802-66-59 07:54:00 Test Item Value Reference Range Interpretation Comments Basophils (test code = 1.0 See_Comment [Aut omated message] The Basophils) system which ge nerated this result tra nsmitted reference range : <=1.0. The reference r yared was not used to int erpret this result as normal/abnormal . [place] 129418-07-08 07:54:00 Test Item Value Reference Range Interpretation Comments Segs-Bands # (test code = Segs-Bands #) 3.5 1.5-8.1 [facility] TexasGpqqrrxUGITLOPIQY8281-60-19 07:54:00 Test Item Value Reference Range Interpretation Comments Basophils # (test code 0.1 See_Comment [Aut omated message] The = Basophils #) system which generated this result tra nsmitted reference range : <=0.2. The reference r yared was not used to int erpret this result as normal/abnormal . [facility] TexasIaaouhpTEIYXEMMPF1450-50-26 07:54:00 Test Item Value Reference Range Interpretation Comments Eosinophils # (test code 0.2 See_Comment [A utomated message] The = Eosinophils #) system whic h generated this result tra nsmitted reference range : <=0.5. The reference r yared was not used to int erpret this result as normal/abnormal . [facility] TexasMeprfxmLPZGLBAQSJ0077-79-58 07:54:00 Test Item Value Reference Range Interpretation Comments Lymphocytes (test code = Lymphocytes) 26.7 20.0-40.0 [facility] TexasNfvnokwQZAGJBKDRS1936-48-01 07:54:00 Test Item Value Reference Range Interpretation Comments Segs (test code = Segs) 61.0 45.0-75.0 [facility] TexasUlagbimQUSSFPRDIF9608-59-10 07:54:00 Test Item Value Reference Range Interpretation Comments Monocytes (test code = Monocytes) 8.0 2.0-12.0 [facility] TexasZadsefqKJKWEJQBKD9387-71-01 07:54:00 Test Item Value Reference Range Interpretation Comments Eosinophils (test code = 3.3 See_Comment [A utomated message] The Eosinophils) system which ge nerated this result tra nsmitted reference range : <=4.0. The reference r yared was not used to int erpret this result as normal/abnormal . [facility] TexasAvwolzxTWGULPISMR2033-76-68 07:54:00 Test Item Value Reference Range Interpretation Comments WBC (test code = WBC) 5.7 3.7-10.4 [facility] TexasObycjscZISSRZECJF7854-87-98 07:54:00 Test Item Value Reference Range Interpretation Comments RBC (test code = RBC) 4.48 4.70-6.10 [facility] TexasPbzkolbVQBURTFKPW9150-84-54 07:54:00 Test Item Value Reference Range Interpretation Comments RDW (test code = RDW) 17.7 11.5-14.5 [facility] HospitalAyeumvyDHVPGXGWTO0538-77-45 07:54:00 Test Item Value Reference Range Interpretation Comments Platelet (test code = Platelet) 215 133-450 [facility]YrowsrgBGZFTOUMVC0185-36-57 07:54:00 Test Item Value Reference Range Interpretation Comments MPV (test code = MPV) 7.2 7.4-10.4 [facility] HospitalNxgigmsOHTHLHMCLI2682-33-62 07:54:00 Test Item Value Reference Range Interpretation Comments Hgb (test code = Hgb) 11.6 14.0-18.0 [facility] HospitalRnaotsvXQIXQQLKJC1008-22-61 07:54:00 Test Item Value Reference Range Interpretation Comments Hct (test code = Hct) 35.5 42.0-54.0 [facility] HospitalNewyyldAXIFQMUYIP4958-95-04 07:54:00 Test Item Value Reference Range Interpretation Comments MCHC (test code = MCHC) 32.6 32.0-36.0 [facility] HospitalCmaqoawSPJSVRUFCZ1531-10-46 07:54:00 Test Item Value Reference Range Interpretation Comments MCV (test code = MCV) 79.2 80.0-94.0 [facility] HospitalClowluxYWBNFQQJAR0757-13-58 07:54:00 Test Item Value Reference Range Interpretation Comments MCH (test code = MCH) 25.8 pg 27.0-31.0 [facility] HospitalCode Climate2018-07-08 02:58:00 Test Item Value Reference Range Interpretation Comments Troponin-I (test code no gt See_Comment [Auto mated message] The = Troponin-I) system which g enerated this result transmit emerson reference range : <=0.40. The reference r yared was not used to interpr et this result as erinn l/abnormal. [facility] HospitalUndertoneCARIntroMaps EOHHAZC8843-20-96 00:12:00 Test Item Value Reference Range Interpretation Comments proBNP (test code = 58221 See_Comment [Automa emerson message] The proBNP) system which ge nerated this result tra nsmitted reference range : <=125. The reference r yared was not used to int erpret this result as erinn l/abnormal. [facility] [employer] PZHIVSX7393-86-25 00:12:00 Test Item Value Reference Range Interpretation Comments Total CK (test code = Total CK) 37 12-191 [facility] HospitalannCARDIAC YTMQZSI6725-42-92 00:12:00 Test Item Value Reference Range Interpretation Comments CK MB (test code = CK MB) 1.0 0.5-3.6 [facility]annCARDIAC BRIYFFE2644-21-59 00:12:00 Test Item Value Reference Range Interpretation Comments CK MB Index (test 2.7 1 See_Comment [Automate d message] The code = CK MB Index) system w [facility] generated this result transmit emerson reference range : <=2.5. The reference range was not used to interpr et this result as erinn l/abnormal. [facility] [employer] [id number] 00:12:00 Test Item Value Reference Range Interpretation Comments eGFR (test code = eGFR) 12 [facility] HospitalTivity SAGQM1679-04-67 00:12:00 Test Item Value Reference Range Interpretation Comments Alk Phos (test code = Alk Phos) 88 39-136 [facility] HospitalTivity [id number] 00:12:00 Test Item Value Reference Range Interpretation Comments AST (test code = AST) 14 See_Comment [Auto mated message] The system which ge nerated this result transmit emerson reference range : <=37. The reference range was not used to interpr et this result as erinn l/abnormal. [facility] [employer] [id number] 00:12:00 Test Item Value Reference Range Interpretation Comments Total Protein (test code = Total 7.4 6.4-8.4 Protein) [facility] HospitalTivity [id number] 00:12:00 Test Item Value Reference Range Interpretation Comments Bili Total (test code = Bili Total) 0.5 0.2-1.3 [facility] HospitalTivity GGKDP9524-63-70 00:12:00 Test Item Value Reference Range Interpretation Comments ALT (test code = ALT) 17 See_Comment [Auto mated message] The system which ge nerated this result transmit emerson reference range : <=65. The reference range was not used to interpr et this result as erinn l/abnormal. [facility] [employer] QWTAJ1393-28-08 00:12:00 Test Item Value Reference Range Interpretation Comments Albumin Lvl (test code = Albumin Lvl) 3.2 3.5-5.0 [facility]2018-07-08 00:12:00 Test Item Value Reference Range Interpretation Comments Calcium Lvl (test code = Calcium Lvl) 8.1 8.5-10.5 [facility]2018-07-08 00:12:00 Test Item Value Reference Range Interpretation Comments Sodium Lvl (test code = Sodium Lvl) 137 135-145 [facility]2018-07-08 00:12:00 Test Item Value Reference Range Interpretation Comments CO2 (test code = CO2) 26 24-32 [facility]2018-07-08 00:12:00 Test Item Value Reference Range Interpretation Comments Creatinine Lvl (test code = Creatinine 4.94 0.50-1.40 Lvl) [facility]2018-07-08 00:12:00 Test Item Value Reference Range Interpretation Comments BUN (test code = BUN) 24 7-22 [facility]2018-07-08 00:12:00 Test Item Value Reference Range Interpretation Comments Glucose Lvl (test code = Glucose Lvl) 156 70-99 [facility]2018-07-08 00:12:00 Test Item Value Reference Range Interpretation Comments B/C Ratio (test code = B/C Ratio) 5 1 6-25 [facility]2018-07-08 00:12:00 Test Item Value Reference Range Interpretation Comments AGAP (test code = AGAP) 12.3 10.0-20.0 [facility]2018-07-08 00:12:00 Test Item Value Reference Range Interpretation Comments A/G Ratio (test code = A/G Ratio) 0.8 1 0.7-1.6 [facility]2018-07-08 00:12:00 Test Item Value Reference Range Interpretation Comments Globulin (test code = Globulin) 4.2 2.7-4.2 [facility]2018-07-08 00:12:00 Test Item Value Reference Range Interpretation Comments Chloride Lvl (test code = Chloride Lvl) 102 95-109 [facility]2018-07-08 00:12:00 Test Item Value Reference Range Interpretation Comments Potassium Lvl (test code = Potassium 3.3 3.5-5.1 Lvl) [facility] TexasSchlvrlPTWWHKBPKL0833-25-62 00:12:00 Test Item Value Reference Range Interpretation Comments WBC (test code = WBC) 5.0 3.7-10.4 [facility] TexasStpdktvTEWZGNBJXE7512-35-38 00:12:00 Test Item Value Reference Range Interpretation Comments RDW (test code = RDW) 17.6 11.5-14.5 [facility] TexasNcbmcnsNNKLGZWGTA2586-29-28 00:12:00 Test Item Value Reference Range Interpretation Comments MCHC (test code = MCHC) 33.5 32.0-36.0 [facility] TexasKmtxxnfYAFHRESUNG7627-48-36 00:12:00 Test Item Value Reference Range Interpretation Comments MPV (test code = MPV) 7.3 7.4-10.4 [facility] TexasWsvpwntPOVSIGVTUC3712-73-31 00:12:00 Test Item Value Reference Range Interpretation Comments RBC (test code = RBC) 4.25 4.70-6.10 [facility] TexasZlabzzaMYXCHCWIWS9777-94-41 00:12:00 Test Item Value Reference Range Interpretation Comments MCH (test code = MCH) 26.0 pg 27.0-31.0 [facility] TexasGrwjrfyDWIIQEDDAZ8634-39-32 00:12:00 Test Item Value Reference Range Interpretation Comments MCV (test code = MCV) 77.5 80.0-94.0 [facility] TexasQgigqmcJSBMGOIOPZ7057-89-13 00:12:00 Test Item Value Reference Range Interpretation Comments Hct (test code = Hct) 33.0 42.0-54.0 [facility] TexasFoyavvpAJKTFGRFEU5982-09-53 00:12:00 Test Item Value Reference Range Interpretation Comments Hgb (test code = Hgb) 11.1 14.0-18.0 [facility] TexasFervqnsYQXPANTSQQ1194-71-03 00:12:00 Test Item Value Reference Range Interpretation Comments Platelet (test code = Platelet) 208 133-450 [facility] TexasBelsizzXBTCIVKKKT6371-49-67 00:12:00 Test Item Value Reference Range Interpretation Comments Segs-Bands # (test code = Segs-Bands #) 3.6 1.5-8.1 [facility] TexasEjzsontAWLSOGHFUP0750-24-95 00:12:00 Test Item Value Reference Range Interpretation Comments Lymphocytes # (test code = Lymphocytes 0.9 1.0-5.5 #) [facility] TexasFqtuhfdGKXYKCWSLT4867-29-36 00:12:00 Test Item Value Reference Range Interpretation Comments Basophils # (test code 0.1 See_Comment [Aut omated message] The = Basophils #) system which generated this result tra nsmitted reference range : <=0.2. The reference r yared was not used to int erpret this result as normal/abnormal . [facility] TexasXsjrhdiQKMGYWJBYK5048-48-56 00:12:00 Test Item Value Reference Range Interpretation Comments Eosinophils # (test code 0.1 See_Comment [A utomated message] The = Eosinophils #) system whic h generated this result tra nsmitted reference range : <=0.5. The reference r yared was not used to int erpret this result as normal/abnormal . [facility] TexasNdszsmuMPKCTNKKNW9356-33-65 00:12:00 Test Item Value Reference Range Interpretation Comments Monocytes # (test code 0.4 See_Comment [Aut omated message] The = Monocytes #) system which generated this result tra nsmitted reference range : <=0.8. The reference r yared was not used to int erpret this result as normal/abnormal . [facility] TexasJilzbviAOKPBDTQUG9662-25-95 00:12:00 Test Item Value Reference Range Interpretation Comments Basophils (test code = 1.0 See_Comment [Aut omated message] The Basophils) system which ge nerated this result tra nsmitted reference range : <=1.0. The reference r yared was not used to int erpret this result as normal/abnormal . [facility] TexasTrlnsdhNKMNQYSNIV6534-62-18 00:12:00 Test Item Value Reference Range Interpretation Comments Eosinophils (test code = 2.0 See_Comment [A utomated message] The Eosinophils) system which ge nerated this result tra nsmitted reference range : <=4.0. The reference r yared was not used to int erpret this result as normal/abnormal . [facility] TexasDwedgxiKDNUPOQSDA1612-88-11 00:12:00 Test Item Value Reference Range Interpretation Comments Microcyte (test code = 1+ *ABN*(04/14/18 7:12 Microcyte) PM) [facility] TexasUstbpgdMNDWYSGULF4478-58-06 00:12:00 Test Item Value Reference Range Interpretation Comments Plt Morph (test code = Normal (04/14/18 7:12 PM) Plt Morph) [facility] TexasSshlusyQRUFVKEKYF2000-33-56 00:12:00 Test Item Value Reference Range Interpretation Comments Lymphocytes (test code = Lymphocytes) 17.2 20.0-40.0 [facility]fgq[facility]agRRNILMBSBB7483-11-65 00:12:00 Test Item Value Reference Range Interpretation Comments Segs (test code = Segs) 72.3 45.0-75.0 [facility] HospitalNcyayogEDAGEDUMZI9933-12-33 00:12:00 Test Item Value Reference Range Interpretation Comments Monocytes (test code = Monocytes) 7.5 2.0-12.0 [facility]udaVwjlqpbLZEXUHKESN2677-86-79 12:10:00 Test Item Value Reference Range Interpretation Comments Vanco Lvl (test code = Vanco Lvl) 17.4 [facility] AYYHZ4469-48-49 08:01:00 Test Item Value Reference Range Interpretation Comments Magnesium Lvl (test code = Magnesium 2.1 1.8-2.4 Lvl) [facility]2018-06-11 08:01:00 Test Item Value Reference Range Interpretation Comments Phosphorus (test code = Phosphorus) 5.6 2.5-4.5 [facility] BranchKafusiuCYORFDUXZFBG7936-68-06 08:01:00 Test Item Value Reference Range Interpretation Comments AGAP (test code = AGAP) 17.3 10.0-20.0 [facility] BranchVckexqkVWNGVGMBVHIC1671-17-98 08:01:00 Test Item Value Reference Range Interpretation Comments eGFR (test code = eGFR) 5 [facility] BranchWvxknkaVASOVLTTNEZN5856-33-24 08:01:00 Test Item Value Reference Range Interpretation Comments Chloride Lvl (test code = Chloride Lvl) 94 95-109 [facility] BranchAkhkermTSATEZLEIBFC2567-56-73 08:01:00 Test Item Value Reference Range Interpretation Comments CO2 (test code = CO2) 24 24-32 [facility] BranchPaazorpNCNFFTUTXFCD4745-52-98 08:01:00 Test Item Value Reference Range Interpretation Comments Calcium Lvl (test code = Calcium Lvl) 8.3 8.5-10.5 [facility] BranchWuvxjlzCEMIKIPDVTLC2825-61-29 08:01:00 Test Item Value Reference Range Interpretation Comments Glucose Lvl (test code = Glucose Lvl) 120 70-99 [facility] BranchUuiqvlmKJJWKCGNJVAW1052-56-70 08:01:00 Test Item Value Reference Range Interpretation Comments Potassium Lvl (test code = Potassium 4.3 3.5-5.1 Lvl) [facility] BranchXuuiwhbUTHCLFLOSAJH9294-34-98 08:01:00 Test Item Value Reference Range Interpretation Comments Sodium Lvl (test code = Sodium Lvl) 131 135-145 [facility] BranchBuzliqgWTQLKMEVNNXT0491-94-19 08:01:00 Test Item Value Reference Range Interpretation Comments BUN (test code = BUN) 55 7-22 [facility] BranchIesacnzRQKIQBCXCZQH9971-93-34 08:01:00 Test Item Value Reference Range Interpretation Comments Creatinine Lvl (test code = Creatinine 9.62 0.50-1.40 Lvl) [facility] TexasWrnfhfqVEOHUQNYDX9758-19-04 08:01:00 Test Item Value Reference Range Interpretation Comments Basophils (test code = 0.3 See_Comment [Aut omated message] The Basophils) system which ge nerated this result tra nsmitted reference range : <=1.0. The reference r yared was not used to int erpret this result as normal/abnormal . [facility] TexasHeuntzwEIGEQBGFLD2383-18-80 08:01:00 Test Item Value Reference Range Interpretation Comments Monocytes (test code = Monocytes) 10.9 2.0-12.0 [facility] TexasIplbwhfMRBYOMSQLA3598-71-22 08:01:00 Test Item Value Reference Range Interpretation Comments Segs (test code = Segs) 78.7 45.0-75.0 [facility] TexasOubwsqbSZPMPTDZOW0049-11-85 08:01:00 Test Item Value Reference Range Interpretation Comments Lymphocytes (test code = Lymphocytes) 8.8 20.0-40.0 [facility] TexasSdwkavuPNFZHVHPTS2743-76-50 08:01:00 Test Item Value Reference Range Interpretation Comments Eosinophils # (test code 0.1 See_Comment [A utomated message] The = Eosinophils #) system whic h generated this result tra nsmitted reference range : <=0.5. The reference r yared was not used to int erpret this result as normal/abnormal . [facility] TexasSkwqmmtTGRDPVVLEY3898-90-54 08:01:00 Test Item Value Reference Range Interpretation Comments Monocytes # (test code 0.9 See_Comment [Aut omated message] The = Monocytes #) system which generated this result tra nsmitted reference range : <=0.8. The reference r yared was not used to int erpret this result as normal/abnormal . [facility] TexasRqambubFYKEUDXKDU8422-53-42 08:01:00 Test Item Value Reference Range Interpretation Comments Eosinophils (test code = 1.3 See_Comment [A utomated message] The Eosinophils) system which ge nerated this result tra nsmitted reference range : <=4.0. The reference r yared was not used to int erpret this result as normal/abnormal . [facility] TexasBilzjehYAOTKZESVQ5806-14-05 08:01:00 Test Item Value Reference Range Interpretation Comments Microcyte (test code = 1+ *ABN*(03/19/18 Microcyte) 3:01 AM) [facility] TexasJhgzwrpLCPVSBBDBJ9060-01-66 08:01:00 Test Item Value Reference Range Interpretation Comments Segs-Bands # (test code = Segs-Bands #) 6.5 1.5-8.1 [facility] TexasVluvrxzAODGUCEIKZ7747-56-95 08:01:00 Test Item Value Reference Range Interpretation Comments Lymphocytes # (test code = Lymphocytes 0.7 1.0-5.5 #) [facility] TexasQgqxqbeMYIOAPXGPN5292-81-33 08:01:00 Test Item Value Reference Range Interpretation Comments MPV (test code = MPV) 7.9 7.4-10.4 [facility] TexasVoteiplXAZMKBHRSU8264-05-51 08:01:00 Test Item Value Reference Range Interpretation Comments Platelet (test code = Platelet) 240 133-450 [facility] TexasYjpdvfeCYHKLOFBVP6017-66-36 08:01:00 Test Item Value Reference Range Interpretation Comments MCH (test code = MCH) 26.4 pg 27.0-31.0 [facility] TexasSnbhwmjWVMLWHAPOT1731-04-40 08:01:00 Test Item Value Reference Range Interpretation Comments RDW (test code = RDW) 15.4 11.5-14.5 [facility] TexasQsadzlkYXHWBCZQVX9614-99-35 08:01:00 Test Item Value Reference Range Interpretation Comments MCHC (test code = MCHC) 34.2 32.0-36.0 [facility] TexasAnvnvnlWOGCJOBSFZ3470-37-75 08:01:00 Test Item Value Reference Range Interpretation Comments RBC (test code = RBC) 2.99 4.70-6.10 [facility] TexasGacpldmRGGXHGTYCE6663-94-09 08:01:00 Test Item Value Reference Range Interpretation Comments WBC (test code = WBC) 8.2 3.7-10.4 [facility] TexasMslmhayFIBTKTCSPG9656-25-43 08:01:00 Test Item Value Reference Range Interpretation Comments Hct (test code = Hct) 23.1 42.0-54.0 [facility] TexasDxxhmdbPKZQQIMWYH9985-88-04 08:01:00 Test Item Value Reference Range Interpretation Comments Hgb (test code = Hgb) 7.9 14.0-18.0 [facility] TexasFpfgemfCUSFZKCEFF1482-71-91 08:01:00 Test Item Value Reference Range Interpretation Comments MCV (test code = MCV) 77.1 80.0-94.0 [facility]2018-06-10 08:29:00 Test Item Value Reference Range Interpretation Comments Magnesium Lvl (test code = Magnesium 2.3 1.8-2.4 Lvl) [facility]2018-06-10 08:29:00 Test Item Value Reference Range Interpretation Comments eGFR (test code = eGFR) 6 [facility]2018-06-10 08:29:00 Test Item Value Reference Range Interpretation Comments Bili Total (test code = Bili Total) 0.4 0.2-1.3 [facility]2018-06-10 08:29:00 Test Item Value Reference Range Interpretation Comments Potassium Lvl (test code = Potassium 4.0 3.5-5.1 Lvl) [facility]2018-06-10 08:29:00 Test Item Value Reference Range Interpretation Comments Glucose Lvl (test code = Glucose Lvl) 105 70-99 [facility]2018-06-10 08:29:00 Test Item Value Reference Range Interpretation Comments BUN (test code = BUN) 50 7-22 [facility]2018-06-10 08:29:00 Test Item Value Reference Range Interpretation Comments Sodium Lvl (test code = Sodium Lvl) 133 135-145 [facility]2018-06-10 08:29:00 Test Item Value Reference Range Interpretation Comments Creatinine Lvl (test code = Creatinine 8.40 0.50-1.40 Lvl) [facility]2018-06-10 08:29:00 Test Item Value Reference Range Interpretation Comments Chloride Lvl (test code = Chloride Lvl) 97 95-109 [facility]2018-06-10 08:29:00 Test Item Value Reference Range Interpretation Comments Alk Phos (test code = Alk Phos) 104 39-136 [facility]2018-06-10 08:29:00 Test Item Value Reference Range Interpretation Comments Albumin Lvl (test code = Albumin Lvl) 2.7 3.5-5.0 [facility]2018-06-10 08:29:00 Test Item Value Reference Range Interpretation Comments Total Protein (test code = Total 6.9 6.4-8.4 Protein) [facility]2018-06-10 08:29:00 Test Item Value Reference Range Interpretation Comments Calcium Lvl (test code = Calcium Lvl) 8.0 8.5-10.5 [facility]2018-06-10 08:29:00 Test Item Value Reference Range Interpretation Comments CO2 (test code = CO2) 26 24-32 [facility]2018-06-10 08:29:00 Test Item Value Reference Range Interpretation Comments AST (test code = AST) 9 See_Comment [Auto mated message] The system which ge nerated this result transmit emerson reference range : <=37. The reference range was not used to interpr et this result as erinn l/abnormal. [facility]2018-06-10 08:29:00 Test Item Value Reference Range Interpretation Comments ALT (test code = ALT) 12 See_Comment [Auto mated message] The system which ge nerated this result transmit emerson reference range : <=65. The reference range was not used to interpr et this result as erinn l/abnormal. [facility]2018-06-10 08:29:00 Test Item Value Reference Range Interpretation Comments B/C Ratio (test code = B/C Ratio) 6 1 6-25 [facility]2018-06-10 08:29:00 Test Item Value Reference Range Interpretation Comments AGAP (test code = AGAP) 14.0 10.0-20.0 [facility]2018-06-10 08:29:00 Test Item Value Reference Range Interpretation Comments Globulin (test code = Globulin) 4.2 2.7-4.2 [facility]2018-06-10 08:29:00 Test Item Value Reference Range Interpretation Comments A/G Ratio (test code = A/G Ratio) 0.6 1 0.7-1.6 [place] 265878-06-10 08:29:00 Test Item Value Reference Range Interpretation Comments Phosphorus (test code = Phosphorus) 5.7 2.5-4.5 [facility] TexasEujnpruNQJAHGRSWA7978-37-10 08:29:00 Test Item Value Reference Range Interpretation Comments INR (test code = INR) 1.23 1 0.85-1.17 [facility] TexasSzviqusASNWUKFYKL3030-57-16 08:29:00 Test Item Value Reference Range Interpretation Comments PTT (test code = PTT) 42.0 s 22.9-35.8 [facility] TexasEmaknrqMOCHUVERBF5622-47-10 08:29:00 Test Item Value Reference Range Interpretation Comments PT (test code = PT) 15.6 s 12.0-14.7 [facility] TexasSgcoukrMOTXBDWYKA2723-19-25 08:29:00 Test Item Value Reference Range Interpretation Comments Microcyte (test code = 1+ *ABN*(03/18/18 Microcyte) 3:29 AM) [facility] TexasWwgwflgSXYJFMUZYC7533-52-34 08:29:00 Test Item Value Reference Range Interpretation Comments Monocytes # (test code 1.0 See_Comment [Aut omated message] The = Monocytes #) system which generated this result tra nsmitted reference range : <=0.8. The reference r yared was not used to int erpret this result as normal/abnormal . [facility] TexasXqooofrFZLXUTDQPI3508-45-56 08:29:00 Test Item Value Reference Range Interpretation Comments Eosinophils # (test code 0.1 See_Comment [A utomated message] The = Eosinophils #) system whic h generated this result tra nsmitted reference range : <=0.5. The reference r yared was not used to int erpret this result as normal/abnormal . [facility] TexasCvzuliaEGLCZPIGRC8696-35-23 08:29:00 Test Item Value Reference Range Interpretation Comments Lymphocytes # (test code = Lymphocytes 0.9 1.0-5.5 #) [facility] TexasIlgtzvtBVAVWRFYKY3121-47-25 08:29:00 Test Item Value Reference Range Interpretation Comments Segs-Bands # (test code = Segs-Bands #) 5.0 1.5-8.1 [facility] TexasJgrhvuuEKXBPCKOOR7738-15-68 08:29:00 Test Item Value Reference Range Interpretation Comments Eosinophils (test code = 1.6 See_Comment [A utomated message] The Eosinophils) system which ge nerated this result tra nsmitted reference range : <=4.0. The reference r yared was not used to int erpret this result as normal/abnormal . [facility] TexasXmlnbdkBJTWSPLLDE4871-13-12 08:29:00 Test Item Value Reference Range Interpretation Comments Lymphocytes (test code = Lymphocytes) 13.3 20.0-40.0 [facility] TexasVnhmxkgPGGLNBISFC6587-57-54 08:29:00 Test Item Value Reference Range Interpretation Comments Basophils (test code = 0.5 See_Comment [Aut omated message] The Basophils) system which ge nerated this result tra nsmitted reference range : <=1.0. The reference r yared was not used to int erpret this result as normal/abnormal . [facility] TexasOljkrshAVMKJCGVOZ1758-14-10 08:29:00 Test Item Value Reference Range Interpretation Comments Monocytes (test code = Monocytes) 13.9 2.0-12.0 [facility] TexasKwggwkgDFNDJZOFHE1520-41-62 08:29:00 Test Item Value Reference Range Interpretation Comments Segs (test code = Segs) 70.7 45.0-75.0 [facility] TexasDxlcjmwQENORNCINR0322-90-61 08:29:00 Test Item Value Reference Range Interpretation Comments Platelet (test code = Platelet) 217 133-450 [facility] TexasWqpiqicCRDBZJLTTV5142-48-58 08:29:00 Test Item Value Reference Range Interpretation Comments MPV (test code = MPV) 7.9 7.4-10.4 [facility] TexasMcluktvHVJLZKHPQX7747-04-25 08:29:00 Test Item Value Reference Range Interpretation Comments MCHC (test code = MCHC) 33.8 32.0-36.0 [facility] TexasVcjyrwxDRCOHUGHPE7141-89-20 08:29:00 Test Item Value Reference Range Interpretation Comments RDW (test code = RDW) 15.0 11.5-14.5 [facility] TexasAgulgnuKJYMJKBVTR3527-18-68 08:29:00 Test Item Value Reference Range Interpretation Comments Hct (test code = Hct) 21.8 42.0-54.0 [facility] TexasAlfcacfXCPJNPNXTW3181-25-55 08:29:00 Test Item Value Reference Range Interpretation Comments MCV (test code = MCV) 77.9 80.0-94.0 [facility] TexasFgwdvesKFNBTMOLZD3029-78-52 08:29:00 Test Item Value Reference Range Interpretation Comments MCH (test code = MCH) 26.3 pg 27.0-31.0 [facility] HospitalVbtvlkeKUUTPLMDCM0505-40-72 08:29:00 Test Item Value Reference Range Interpretation Comments RBC (test code = RBC) 2.80 4.70-6.10 [facility]udaEohjkgpCARYEYNDSU5734-94-25 08:29:00 Test Item Value Reference Range Interpretation Comments Hgb (test code = Hgb) 7.4 14.0-18.0 [facility] BudaQkjeclnEKZCRQBMOY0902-28-92 08:29:00 Test Item Value Reference Range Interpretation Comments WBC (test code = WBC) 7.1 3.7-10.4 [facility] HospitalPfqkzrhGWHODLFUIY9830-78-89 21:57:00 Test Item Value Reference Range Interpretation Comments Vanco Lvl (test code = Vanco Lvl) 18.3 [facility]udaCHEM [id number] 13:00:00 Test Item Value Reference Range Interpretation Comments Lactic Acid Lvl (test code = Lactic 0.3 0.5-2.2 Acid Lvl) [facility] HospitalEjyqasxSNGTFGQOPI4492-38-96 13:00:00 Test Item Value Reference Range Interpretation Comments Hep Bs Ag (test code Negative *NA*(03/17/18 = Hep Bs Ag) 8:00 AM) [facility]udaCHEM ZMHEZ9029-77-06 11:05:00 Test Item Value Reference Range Interpretation Comments Lactic Acid Lvl (test code = Lactic 0.3 0.5-2.2 Acid Lvl) [facility]udaCARDIAC [id number] 08:09:00 Test Item Value Reference Range Interpretation Comments CK MB Index (test 1.2 1 See_Comment [Automate d message] The code = CK MB Index) system w [facility] generated this result transmit emerson reference range : <=2.5. The reference range was not used to interpr et this result as erinn l/abnormal. [facility] HospitalannCARDIAC GVEXGAD6087-84-03 08:09:00 Test Item Value Reference Range Interpretation Comments Total CK (test code = Total CK) 122 12-191 [facility] BudaCARAC RWNZHFQ5168-29-61 08:09:00 Test Item Value Reference Range Interpretation Comments proBNP (test code = 08278 See_Comment [Automa emerson message] The proBNP) system which ge nerated this result tra nsmitted reference range : <=125. The reference r yared was not used to int erpret this result as erinn l/abnormal. [facility] HospitalUndertoneCARTELOSAC EWTVVHD2403-81-99 08:09:00 Test Item Value Reference Range Interpretation Comments CK MB (test code = CK MB) 1.5 0.5-3.6 [facility] BudaCARTELOSAC WRYTFQG6032-72-49 08:09:00 Test Item Value Reference Range Interpretation Comments Troponin-I (test code no gt See_Comment [Auto mated message] The = Troponin-I) system which g enerated this result transmit emerson reference range : <=0.40. The reference r yared was not used to interpr et this result as erinn l/abnormal. [facility] [employer] [id number] 08:09:00 Test Item Value Reference Range Interpretation Comments Ammonia (test code = Ammonia) 33.0 [facility] [employer] [id number] 08:09:00 Test Item Value Reference Range Interpretation Comments eGFR (test code = eGFR) 4 [facility] [employer] [id number] 08:09:00 Test Item Value Reference Range Interpretation Comments Alk Phos (test code = Alk Phos) 89 39-136 [facility] [employer] [id number] 08:09:00 Test Item Value Reference Range Interpretation Comments Chloride Lvl (test code = Chloride Lvl) 93 95-109 [facility] [employer] UKUOZ2259-95-46 08:09:00 Test Item Value Reference Range Interpretation Comments Globulin (test code = Globulin) 4.1 2.7-4.2 [facility] [employer] [id number] 08:09:00 Test Item Value Reference Range Interpretation Comments A/G Ratio (test code = A/G Ratio) 0.7 1 0.7-1.6 [facility] [employer] [id number] 08:09:00 Test Item Value Reference Range Interpretation Comments B/C Ratio (test code = B/C Ratio) 7 1 6-25 [facility] [employer] [id number] 08:09:00 Test Item Value Reference Range Interpretation Comments AGAP (test code = AGAP) 20.4 10.0-20.0 [facility] [employer] [id number] 08:09:00 Test Item Value Reference Range Interpretation Comments Bili Total (test code = Bili Total) 0.4 0.2-1.3 [facility]2018-06-09 08:09:00 Test Item Value Reference Range Interpretation Comments AST (test code = AST) 11 See_Comment [Auto mated message] The system which ge nerated this result transmit emerson reference range : <=37. The reference range was not used to interpr et this result as erinn l/abnormal. [facility]2018-06-09 08:09:00 Test Item Value Reference Range Interpretation Comments ALT (test code = ALT) 10 See_Comment [Auto mated message] The system which ge nerated this result transmit emerson reference range : <=65. The reference range was not used to interpr et this result as erinn l/abnormal. [facility]2018-06-09 08:09:00 Test Item Value Reference Range Interpretation Comments Albumin Lvl (test code = Albumin Lvl) 2.7 3.5-5.0 [facility]2018-06-09 08:09:00 Test Item Value Reference Range Interpretation Comments CO2 (test code = CO2) 21 24-32 [facility] [place]2018-06-09 08:09:00 Test Item Value Reference Range Interpretation Comments Total Protein (test code = Total 6.8 6.4-8.4 Protein) [facility] [place]2018-06-09 08:09:00 Test Item Value Reference Range Interpretation Comments Calcium Lvl (test code = Calcium Lvl) 7.5 8.5-10.5 [facility]2018-06-09 08:09:00 Test Item Value Reference Range Interpretation Comments Sodium Lvl (test code = Sodium Lvl) 130 135-145 [facility]2018-06-09 08:09:00 Test Item Value Reference Range Interpretation Comments Potassium Lvl (test code = Potassium 4.4 3.5-5.1 Lvl) [facility]2018-06-09 08:09:00 Test Item Value Reference Range Interpretation Comments Creatinine Lvl (test code = Creatinine 12.50 0.50-1.40 Lvl) [facility]2018-06-09 08:09:00 Test Item Value Reference Range Interpretation Comments BUN (test code = BUN) 85 7-22 [facility]2018-06-09 08:09:00 Test Item Value Reference Range Interpretation Comments Glucose Lvl (test code = Glucose Lvl) 172 70-99 [facility]2018-06-09 08:09:00 Test Item Value Reference Range Interpretation Comments Magnesium Lvl (test code = Magnesium 1.9 1.8-2.4 Lvl) [facility]2018-06-09 08:09:00 Test Item Value Reference Range Interpretation Comments Lipase Lvl (test code = Lipase Lvl) 65 73-393 [facility]2018-06-09 08:09:00 Test Item Value Reference Range Interpretation Comments Phosphorus (test code = Phosphorus) 7.5 2.5-4.5 [facility]IxgkqqhKJFVOOSTST5491-02-38 08:09:00 Test Item Value Reference Range Interpretation Comments Monocytes # (test code 0.8 See_Comment [Aut omated message] The = Monocytes #) system which generated this result tra nsmitted reference range : <=0.8. The reference r yared was not used to int erpret this result as normal/abnormal . [facility] TexasLtpxckpMQOOGCNFCN9052-00-52 08:09:00 Test Item Value Reference Range Interpretation Comments Eosinophils (test code = 0.5 See_Comment [A utomated message] The Eosinophils) system which ge nerated this result tra nsmitted reference range : <=4.0. The reference r yared was not used to int erpret this result as normal/abnormal . [facility] TexasEdtvethILJBOYUYAN8848-32-96 08:09:00 Test Item Value Reference Range Interpretation Comments Lymphocytes # (test code = Lymphocytes 0.7 1.0-5.5 #) [facility] TexasDachfalWCHTKIBZFV0034-98-17 08:09:00 Test Item Value Reference Range Interpretation Comments Basophils (test code = 0.5 See_Comment [Aut omated message] The Basophils) system which ge nerated this result tra nsmitted reference range : <=1.0. The reference r yared was not used to int erpret this result as normal/abnormal . [facility] TexasEmndccqUEYTPYBPQT0891-33-50 08:09:00 Test Item Value Reference Range Interpretation Comments Segs-Bands # (test code = Segs-Bands #) 7.4 1.5-8.1 [facility] TexasYwktlpjJPOYGHIKDJ2072-96-30 08:09:00 Test Item Value Reference Range Interpretation Comments Microcyte (test code = 1+ *ABN*(03/17/18 3:09 Microcyte) AM) [facility] TexasNaizkgfRTVAWARFVM6339-90-78 08:09:00 Test Item Value Reference Range Interpretation Comments Lymphocytes (test code = Lymphocytes) 7.7 20.0-40.0 [facility] TexasBiwnmmbHDJWDTNDKS1795-93-29 08:09:00 Test Item Value Reference Range Interpretation Comments Monocytes (test code = Monocytes) 9.3 2.0-12.0 [facility] TexasRnjkgumXUSPGDWPEH2812-14-40 08:09:00 Test Item Value Reference Range Interpretation Comments Segs (test code = Segs) 82.0 45.0-75.0 [facility] TexasPefkzqxTXVJLPMIDV5092-05-50 08:09:00 Test Item Value Reference Range Interpretation Comments INR (test code = INR) 1.26 1 0.85-1.17 [facility] TexasFwhrgduVHXOGJHRSH4291-39-93 08:09:00 Test Item Value Reference Range Interpretation Comments PT (test code = PT) 15.9 s 12.0-14.7 [facility] TexasEzgdrcfUEOIJZZEHM2891-74-32 08:09:00 Test Item Value Reference Range Interpretation Comments MCH (test code = MCH) 26.4 pg 27.0-31.0 [facility] TexasAhacblqDCPCNRWJFC3189-32-76 08:09:00 Test Item Value Reference Range Interpretation Comments MCV (test code = MCV) 77.8 80.0-94.0 [facility] TexasCxgssdqLASOEAKKSM6669-86-00 08:09:00 Test Item Value Reference Range Interpretation Comments Hct (test code = Hct) 22.2 42.0-54.0 [facility] TexasWufcnieQWBLNMRFKX9750-64-81 08:09:00 Test Item Value Reference Range Interpretation Comments Hgb (test code = Hgb) 7.5 14.0-18.0 [facility] TexasLfdmeceJELICISXYG9414-61-60 08:09:00 Test Item Value Reference Range Interpretation Comments WBC (test code = WBC) 9.0 3.7-10.4 [facility] TexasUfccfxeNHVRKLERYG0813-99-81 08:09:00 Test Item Value Reference Range Interpretation Comments RBC (test code = RBC) 2.86 4.70-6.10 [facility] TexasEjxcjjoXVDNTSXYNA7453-04-13 08:09:00 Test Item Value Reference Range Interpretation Comments MPV (test code = MPV) 7.4 7.4-10.4 [facility]EetktmyGOBIMDGQYU0432-29-02 08:09:00 Test Item Value Reference Range Interpretation Comments Platelet (test code = Platelet) 220 133-450 [facility]udaCwtrexcXOYPYULLVN4590-88-41 08:09:00 Test Item Value Reference Range Interpretation Comments RDW (test code = RDW) 15.1 11.5-14.5 [facility] BudaItywcuoHHQMRRYPLP3097-65-64 08:09:00 Test Item Value Reference Range Interpretation Comments MCHC (test code = MCHC) 34.0 32.0-36.0 [facility] HospitalUndertoneCARDIAC ZPSVGKQ8968-74-34 00:37:00 Test Item Value Reference Range Interpretation Comments CK MB Index (test 1.7 1 See_Comment [Automate d message] The code = CK MB Index) system w [facility] generated this result transmit emerson reference range : <=2.5. The reference range was not used to interpr et this result as erinn l/abnormal. [facility] Decision RocketAC [id number] 00:37:00 Test Item Value Reference Range Interpretation Comments CK MB (test code = CK MB) 2.9 0.5-3.6 [facility] HospitalToovariAC [id number] 00:37:00 Test Item Value Reference Range Interpretation Comments Troponin-I (test code no gt See_Comment [Auto mated message] The = Troponin-I) system which g enerated this result transmit emerson reference range : <=0.40. The reference r yared was not used to interpr et this result as erinn l/abnormal. [facility] JobAppCARTELOSAC [id number] 00:37:00 Test Item Value Reference Range Interpretation Comments Total CK (test code = Total CK) 166 12-191 [facility] HospitalToovariAC DLZWMIY4760-19-23 00:37:00 Test Item Value Reference Range Interpretation Comments proBNP (test code = 4827 See_Comment [Automa emerson message] The proBNP) system which ge nerated this result tra nsmitted reference range : <=125. The reference r yared was not used to int erpret this result as erinn l/abnormal. [facility] JobAppCHEM [id number] 00:37:00 Test Item Value Reference Range Interpretation Comments Magnesium Lvl (test code = Magnesium 1.9 1.8-2.4 Lvl) [facility]2018-04-17 00:37:00 Test Item Value Reference Range Interpretation Comments Phosphorus (test code = Phosphorus) 9.1 2.5-4.5 [facility]2018-04-17 00:37:00 Test Item Value Reference Range Interpretation Comments eGFR (test code = eGFR) 5 [facility]2018-04-17 00:37:00 Test Item Value Reference Range Interpretation Comments Alk Phos (test code = Alk Phos) 115 39-136 [facility] [place]2018-04-17 00:37:00 Test Item Value Reference Range Interpretation Comments AST (test code = AST) 23 See_Comment [Auto mated message] The system which ge nerated this result transmit emerson reference range : <=37. The reference range was not used to interpr et this result as erinn l/abnormal. [facility]2018-04-17 00:37:00 Test Item Value Reference Range Interpretation Comments ALT (test code = ALT) 24 See_Comment [Auto mated message] The system which ge nerated this result transmit emerson reference range : <=65. The reference range was not used to interpr et this result as erinn l/abnormal. [facility]2018-04-17 00:37:00 Test Item Value Reference Range Interpretation Comments A/G Ratio (test code = A/G Ratio) 0.8 1 0.7-1.6 [place] [id number] 00:37:00 Test Item Value Reference Range Interpretation Comments Globulin (test code = Globulin) 4.0 2.7-4.2 [facility]2018-04-17 00:37:00 Test Item Value Reference Range Interpretation Comments Bili Total (test code = Bili Total) 0.4 0.2-1.3 [facility]2018-04-17 00:37:00 Test Item Value Reference Range Interpretation Comments Potassium Lvl (test code = Potassium 4.4 3.5-5.1 Lvl) [facility]2018-04-17 00:37:00 Test Item Value Reference Range Interpretation Comments Calcium Lvl (test code = Calcium Lvl) 6.7 8.5-10.5 [place] 265878-04-17 00:37:00 Test Item Value Reference Range Interpretation Comments Sodium Lvl (test code = Sodium Lvl) 130 135-145 [facility]2018-04-17 00:37:00 Test Item Value Reference Range Interpretation Comments Creatinine Lvl (test code = Creatinine 11.00 0.50-1.40 Lvl) [facility]2018-04-17 00:37:00 Test Item Value Reference Range Interpretation Comments AGAP (test code = AGAP) 17.4 10.0-20.0 [facility]2018-04-17 00:37:00 Test Item Value Reference Range Interpretation Comments CO2 (test code = CO2) 25 24-32 [facility] [place]2018-04-17 00:37:00 Test Item Value Reference Range Interpretation Comments Chloride Lvl (test code = Chloride Lvl) 92 95-109 [facility]2018-04-17 00:37:00 Test Item Value Reference Range Interpretation Comments Albumin Lvl (test code = Albumin Lvl) 3.4 3.5-5.0 [facility]2018-04-17 00:37:00 Test Item Value Reference Range Interpretation Comments Total Protein (test code = Total 7.4 6.4-8.4 Protein) [facility]2018-04-17 00:37:00 Test Item Value Reference Range Interpretation Comments B/C Ratio (test code = B/C Ratio) 8 1 6-25 [facility]2018-04-17 00:37:00 Test Item Value Reference Range Interpretation Comments BUN (test code = BUN) 84 7-22 [facility]2018-04-17 00:37:00 Test Item Value Reference Range Interpretation Comments Glucose Lvl (test code = Glucose Lvl) 123 70-99 [facility] TexasBnnjyjlMQKHLTALIY8675-31-32 00:37:00 Test Item Value Reference Range Interpretation Comments Lymphocytes (test code = Lymphocytes) 21.5 20.0-40.0 [facility] TexasZrfqwzuDXTPPRZSFJ5257-31-18 00:37:00 Test Item Value Reference Range Interpretation Comments Lymphocytes # (test code = Lymphocytes 1.6 1.0-5.5 #) [facility] TexasAvkuaomZLIGTXAAJV4398-26-62 00:37:00 Test Item Value Reference Range Interpretation Comments Eosinophils # (test code 0.3 See_Comment [A utomated message] The = Eosinophils #) system whic h generated this result tra nsmitted reference range : <=0.5. The reference r yared was not used to int erpret this result as normal/abnormal . [facility] TexasKziqzftZVSDLWIWVG0469-09-72 00:37:00 Test Item Value Reference Range Interpretation Comments Segs (test code = Segs) 63.7 45.0-75.0 [facility] TexasTwkulggOROYFUNYUM0538-55-46 00:37:00 Test Item Value Reference Range Interpretation Comments Segs-Bands # (test code = Segs-Bands #) 4.8 1.5-8.1 [facility] TexasGqjzbkrZVAYBZCAJR9678-00-02 00:37:00 Test Item Value Reference Range Interpretation Comments Eosinophils (test code = 3.5 See_Comment [A utomated message] The Eosinophils) system which ge nerated this result tra nsmitted reference range : <=4.0. The reference r yared was not used to int erpret this result as normal/abnormal . [facility] TexasOdickcjVZBYTFEMVP5823-92-43 00:37:00 Test Item Value Reference Range Interpretation Comments Monocytes (test code = Monocytes) 10.4 2.0-12.0 [facility] TexasLueedklYRLCWMNLGV5130-81-05 00:37:00 Test Item Value Reference Range Interpretation Comments Basophils (test code = 0.9 See_Comment [Aut omated message] The Basophils) system which ge nerated this result tra nsmitted reference range : <=1.0. The reference r yared was not used to int erpret this result as normal/abnormal . [facility] TexasRdxquzyYFVMVMLJNH0227-80-41 00:37:00 Test Item Value Reference Range Interpretation Comments Basophils # (test code 0.1 See_Comment [Aut omated message] The = Basophils #) system which generated this result tra nsmitted reference range : <=0.2. The reference r yared was not used to int erpret this result as normal/abnormal . [facility] TexasYiopvklREFQFKZTSP4921-40-98 00:37:00 Test Item Value Reference Range Interpretation Comments Monocytes # (test code 0.8 See_Comment [Aut omated message] The = Monocytes #) system which generated this result tra nsmitted reference range : <=0.8. The reference r yared was not used to int erpret this result as normal/abnormal . [facility] TexasKxvyltwBTVEEYMPKR1641-43-72 00:37:00 Test Item Value Reference Range Interpretation Comments INR (test code = INR) 1.06 1 0.85-1.17 [facility] TexasOuuvwytOUBRJKOHKW7606-75-85 00:37:00 Test Item Value Reference Range Interpretation Comments PT (test code = PT) 13.8 s 12.0-14.7 [facility] TexasUufpyhlXLOZWWQRPD9830-12-95 00:37:00 Test Item Value Reference Range Interpretation Comments PTT (test code = PTT) 35.7 s 22.9-35.8 [facility] TexasQhkjwagTQMHHSNVGP5625-48-58 00:37:00 Test Item Value Reference Range Interpretation Comments Platelet (test code = Platelet) 238 133-450 [facility] TexasEihuvmiIDPKIAMBPM1015-71-11 00:37:00 Test Item Value Reference Range Interpretation Comments MPV (test code = MPV) 7.5 7.4-10.4 [facility] TexasOckpkxnVWEAETNAEP6985-08-25 00:37:00 Test Item Value Reference Range Interpretation Comments Hct (test code = Hct) 25.4 42.0-54.0 [facility] TexasVvtjzqpPTOZNDAYZA1492-30-46 00:37:00 Test Item Value Reference Range Interpretation Comments MCV (test code = MCV) 80.3 80.0-94.0 [facility] TexasJehhedkURYYBSOEQP1788-20-91 00:37:00 Test Item Value Reference Range Interpretation Comments MCH (test code = MCH) 28.2 pg 27.0-31.0 [facility] TexasXrlrgxdVCVLRVVVVG1251-23-09 00:37:00 Test Item Value Reference Range Interpretation Comments Hgb (test code = Hgb) 8.9 14.0-18.0 [facility] TexasTbztjbqVNINVFRKTD7441-27-81 00:37:00 Test Item Value Reference Range Interpretation Comments MCHC (test code = MCHC) 35.1 32.0-36.0 [facility] TexasLkreomyZSFMMBBSQK3718-07-26 00:37:00 Test Item Value Reference Range Interpretation Comments RDW (test code = RDW) 13.9 11.5-14.5 [facility] TexasYjhlmriEYKWPLAASJ7873-36-73 00:37:00 Test Item Value Reference Range Interpretation Comments WBC (test code = WBC) 7.6 3.7-10.4 [place] 129418-04-17 00:37:00 Test Item Value Reference Range Interpretation Comments RBC (test code = RBC) 3.16 4.70-6.10 [facility] AND [id number] 00:37:00 Test Item Value Reference Range Interpretation Comments UA Urobilinogen (test code = UA <=1.0 mg/dL 0.1-1.0 Urobilinogen) [facility] AND [id number] 00:37:00 Test Item Value Reference Range Interpretation Comments UA Glucose (test code = UA Glucose) 50 [facility] AND [id number] 00:37:00 Test Item Value Reference Range Interpretation Comments UA Color (test code = UA Color) STRAW [facility] AND [id number] 00:37:00 Test Item Value Reference Range Interpretation Comments UA Sq Epi (test code = UA Sq Epi) Few /LPF [facility] AND [id number] 00:37:00 Test Item Value Reference Range Interpretation Comments UA WBC (test code = 8 See_Comment [Automa emerson message] The UA WBC) system which ge nerated this result transmit emerson reference range : <=5. The reference range was not used to interpr et this result as erinn l/abnormal. [facility] AND [id number] 00:37:00 Test Item Value Reference Range Interpretation Comments UA Mucus (test code = UA Mucus) Few /LPF [facility] AND [id number] 00:37:00 Test Item Value Reference Range Interpretation Comments UA Bacteria (test code = UA Moderate /HPF Bacteria) [facility] AND [id number] 00:37:00 Test Item Value Reference Range Interpretation Comments UA Leuk Est (test code Small *ABN*(01/22/18 = UA Leuk Est) 7:37 PM) [facility] AND [id number] 00:37:00 Test Item Value Reference Range Interpretation Comments UA Protein (test code = UA >=300 mg/dL Protein) [facility] AND [id number] 00:37:00 Test Item Value Reference Range Interpretation Comments UA Ketones (test code = UA Negative mg/dL Ketones) [facility] AND [id number] 00:37:00 Test Item Value Reference Range Interpretation Comments UA pH (test code = UA pH) 6.0 1 5.0-8.0 [facility] AND [id number] 00:37:00 Test Item Value Reference Range Interpretation Comments UA Turbidity (test code = Clear (01/22/18 7:37 UA Turbidity) PM) [facility] AND [id number] 00:37:00 Test Item Value Reference Range Interpretation Comments UA Spec Grav (test code = UA Spec 1.005 1 Grav) [facility] AND [id number] 00:37:00 Test Item Value Reference Range Interpretation Comments UA Nitrite (test code Negative (01/22/18 7:37 = UA Nitrite) PM) [facility] AND [id number] 00:37:00 Test Item Value Reference Range Interpretation Comments UA Blood (test code = Small *ABN*(01/22/18 UA Blood) 7:37 PM) [facility] AND [id number] 00:37:00 Test Item Value Reference Range Interpretation Comments UA Bili (test code = Negative *NA*(01/22/18 UA Bili) 7:37 PM) [facility]2018-03-14 10:09:00 Test Item Value Reference Range Interpretation Comments Magnesium Lvl (test code = Magnesium 1.8 1.8-2.4 Lvl) [facility]2018-03-14 10:09:00 Test Item Value Reference Range Interpretation Comments eGFR (test code = eGFR) 4 [facility]2018-03-14 10:09:00 Test Item Value Reference Range Interpretation Comments Creatinine Lvl (test code = Creatinine 11.60 0.50-1.40 Lvl) [facility]2018-03-14 10:09:00 Test Item Value Reference Range Interpretation Comments Calcium Lvl (test code = Calcium Lvl) 6.9 8.5-10.5 [facility]2018-03-14 10:09:00 Test Item Value Reference Range Interpretation Comments CO2 (test code = CO2) 27 24-32 [facility]2018-03-14 10:09:00 Test Item Value Reference Range Interpretation Comments Sodium Lvl (test code = Sodium Lvl) 133 135-145 [facility]2018-03-14 10:09:00 Test Item Value Reference Range Interpretation Comments Chloride Lvl (test code = Chloride Lvl) 94 95-109 [facility]2018-03-14 10:09:00 Test Item Value Reference Range Interpretation Comments Potassium Lvl (test code = Potassium 3.7 3.5-5.1 Lvl) [facility]2018-03-14 10:09:00 Test Item Value Reference Range Interpretation Comments BUN (test code = BUN) 104 7-22 [facility]2018-03-14 10:09:00 Test Item Value Reference Range Interpretation Comments Glucose Lvl (test code = Glucose Lvl) 85 70-99 [facility]2018-03-14 10:09:00 Test Item Value Reference Range Interpretation Comments AGAP (test code = AGAP) 15.7 10.0-20.0 [facility] TexasWwyftgjPNDLUWJFTK6207-48-82 10:09:00 Test Item Value Reference Range Interpretation Comments Eosinophils # (test code 0.2 See_Comment [A utomated message] The = Eosinophils #) system whic h generated this result tra nsmitted reference range : <=0.5. The reference r yared was not used to int erpret this result as normal/abnormal . [facility] TexasCcvjudhMMEQIPRCLC1049-72-98 10:09:00 Test Item Value Reference Range Interpretation Comments Monocytes # (test code 0.6 See_Comment [Aut omated message] The = Monocytes #) system which generated this result tra nsmitted reference range : <=0.8. The reference r yared was not used to int erpret this result as normal/abnormal . [facility] TexasPrlggwrMIWJFMNSPY5405-07-63 10:09:00 Test Item Value Reference Range Interpretation Comments Microcyte (test code = 1+ *ABN*(12/20/17 Microcyte) 5:09 AM) [facility] TexasVurkzpqZSZJYFJFLP9334-78-28 10:09:00 Test Item Value Reference Range Interpretation Comments Segs (test code = Segs) 71.0 45.0-75.0 [facility] TexasEgwglqaOTXDHNCHVE7878-54-32 10:09:00 Test Item Value Reference Range Interpretation Comments Lymphocytes # (test code = Lymphocytes 1.0 1.0-5.5 #) [facility] TexasRkmgmxuTIYMBWTNAR1486-76-87 10:09:00 Test Item Value Reference Range Interpretation Comments Basophils (test code = 0.8 See_Comment [Aut omated message] The Basophils) system which ge nerated this result tra nsmitted reference range : <=1.0. The reference r yared was not used to int erpret this result as normal/abnormal . [facility] TexasJybrxxlDUWVCRBSAE0061-02-29 10:09:00 Test Item Value Reference Range Interpretation Comments Segs-Bands # (test code = Segs-Bands #) 4.6 1.5-8.1 [facility] TexasKqjnkedBMVVXRPEUQ6605-88-08 10:09:00 Test Item Value Reference Range Interpretation Comments Lymphocytes (test code = Lymphocytes) 15.7 20.0-40.0 [facility] TexasWywospbVVTKQVUFVO8213-78-15 10:09:00 Test Item Value Reference Range Interpretation Comments Eosinophils (test code = 3.1 See_Comment [A utomated message] The Eosinophils) system which ge nerated this result tra nsmitted reference range : <=4.0. The reference r yared was not used to int erpret this result as normal/abnormal . [facility] TexasOccttlbWIBXZBWWYP9419-83-87 10:09:00 Test Item Value Reference Range Interpretation Comments Monocytes (test code = Monocytes) 9.4 2.0-12.0 [facility] TexasXxueresRPBJJRUSAU6346-34-19 10:09:00 Test Item Value Reference Range Interpretation Comments Platelet (test code = Platelet) 193 133-450 [facility] TexasXjjbhchPLBSASXGLE8765-63-62 10:09:00 Test Item Value Reference Range Interpretation Comments MCV (test code = MCV) 77.5 80.0-94.0 [facility] TexasEdnkttcIPFPKFGNWF4297-88-87 10:09:00 Test Item Value Reference Range Interpretation Comments MCHC (test code = MCHC) 35.5 32.0-36.0 [facility] TexasXcwjfhkGMPKOEOGHW7982-77-62 10:09:00 Test Item Value Reference Range Interpretation Comments MCH (test code = MCH) 27.5 pg 27.0-31.0 [facility] TexasYmadjruTTTZTPNCRT3159-46-75 10:09:00 Test Item Value Reference Range Interpretation Comments RDW (test code = RDW) 14.1 11.5-14.5 [facility] TexasTatzapsWATZHHHNSZ9545-55-56 10:09:00 Test Item Value Reference Range Interpretation Comments MPV (test code = MPV) 7.7 7.4-10.4 [facility] BudaJuesbjiQQMKDLZIGZ2362-90-89 10:09:00 Test Item Value Reference Range Interpretation Comments Hct (test code = Hct) 23.5 42.0-54.0 [facility] BudaVfxfaldXEDZKQKNIR2222-83-26 10:09:00 Test Item Value Reference Range Interpretation Comments Hgb (test code = Hgb) 8.4 14.0-18.0 [facility]ax[facility]OUJMSFFHO4627-93-63 10:09:00 Test Item Value Reference Range Interpretation Comments RBC (test code = RBC) 3.03 4.70-6.10 [facility] BudaCkarciqNCQZGQXMWN6379-11-10 10:09:00 Test Item Value Reference Range Interpretation Comments WBC (test code = WBC) 6.5 3.7-10.4 [facility] BudaPARATHYROID [id number] 10:09:00 Test Item Value Reference Range Interpretation Comments Ca Norm WB (test code = Ca Norm WB) 0.86 1.05-1.25 [facility]annPARATHYROID [id number] 10:09:00 Test Item Value Reference Range Interpretation Comments Ca Ion WB (test code = Ca Ion WB) 0.86 1.05-1.25 [facility]annURINE AND [id number] 17:00:00 Test Item Value Reference Range Interpretation Comments Occult Bld Stl (test Positive *ABN*(12/19/17 code = Occult Bld Stl) 12:00 PM) [facility] BudaCHEM [id number] 12:14:00 Test Item Value Reference Range Interpretation Comments Phosphorus (test code = Phosphorus) 8.2 2.5-4.5 [facility]annCHEM [id number] 12:14:00 Test Item Value Reference Range Interpretation Comments A/G Ratio (test code = A/G Ratio) 0.8 1 0.7-1.6 [facility]annCHEM [id number] 12:14:00 Test Item Value Reference Range Interpretation Comments AST (test code = AST) 9 See_Comment [Auto mated message] The system which ge nerated this result transmit emerson reference range : <=37. The reference range was not used to interpr et this result as erinn l/abnormal. [facility]udaCHEM [id number] 12:14:00 Test Item Value Reference Range Interpretation Comments ALT (test code = ALT) 10 See_Comment [Auto mated message] The system which ge nerated this result transmit emerson reference range : <=65. The reference range was not used to interpr et this result as erinn l/abnormal. [facility]2018-03-13 12:14:00 Test Item Value Reference Range Interpretation Comments Globulin (test code = Globulin) 3.5 2.7-4.2 [facility]2018-03-13 12:14:00 Test Item Value Reference Range Interpretation Comments Albumin Lvl (test code = Albumin Lvl) 2.7 3.5-5.0 [facility]2018-03-13 12:14:00 Test Item Value Reference Range Interpretation Comments eGFR (test code = eGFR) 4 [facility]2018-03-13 12:14:00 Test Item Value Reference Range Interpretation Comments Alk Phos (test code = Alk Phos) 100 39-136 [facility]2018-03-13 12:14:00 Test Item Value Reference Range Interpretation Comments Bili Total (test code = Bili Total) 0.3 0.2-1.3 [facility]2018-03-13 12:14:00 Test Item Value Reference Range Interpretation Comments Glucose Lvl (test code = Glucose Lvl) 88 70-99 [facility]2018-03-13 12:14:00 Test Item Value Reference Range Interpretation Comments Potassium Lvl (test code = Potassium 3.6 3.5-5.1 Lvl) [facility]2018-03-13 12:14:00 Test Item Value Reference Range Interpretation Comments Chloride Lvl (test code = Chloride Lvl) 95 95-109 [facility]2018-03-13 12:14:00 Test Item Value Reference Range Interpretation Comments Sodium Lvl (test code = Sodium Lvl) 135 135-145 [facility]2018-03-13 12:14:00 Test Item Value Reference Range Interpretation Comments BUN (test code = BUN) 103 7-22 [facility]2018-03-13 12:14:00 Test Item Value Reference Range Interpretation Comments Creatinine Lvl (test code = Creatinine 11.70 0.50-1.40 Lvl) [facility]2018-03-13 12:14:00 Test Item Value Reference Range Interpretation Comments B/C Ratio (test code = B/C Ratio) 9 1 6-25 [facility]2018-03-13 12:14:00 Test Item Value Reference Range Interpretation Comments Total Protein (test code = Total 6.2 6.4-8.4 Protein) [facility]2018-03-13 12:14:00 Test Item Value Reference Range Interpretation Comments Calcium Lvl (test code = Calcium Lvl) 6.5 8.5-10.5 [facility]2018-03-13 12:14:00 Test Item Value Reference Range Interpretation Comments AGAP (test code = AGAP) 14.6 10.0-20.0 [facility]2018-03-13 12:14:00 Test Item Value Reference Range Interpretation Comments CO2 (test code = CO2) 29 24-32 [facility]2018-03-13 12:14:00 Test Item Value Reference Range Interpretation Comments Ca Ion WB (test code = Ca Ion WB) 0.88 1.05-1.25 [facility]2018-03-13 12:14:00 Test Item Value Reference Range Interpretation Comments Ca Norm WB (test code = Ca Norm WB) 0.85 1.05-1.25 [facility]2018-03-13 10:02:00 Test Item Value Reference Range Interpretation Comments eGFR (test code = eGFR) 4 [facility]2018-03-13 10:02:00 Test Item Value Reference Range Interpretation Comments Glucose Lvl (test code = Glucose Lvl) 92 70-99 [facility]2018-03-13 10:02:00 Test Item Value Reference Range Interpretation Comments Sodium Lvl (test code = Sodium Lvl) 138 135-145 [facility]2018-03-13 10:02:00 Test Item Value Reference Range Interpretation Comments Potassium Lvl (test code = Potassium 3.6 3.5-5.1 Lvl) [facility]2018-03-13 10:02:00 Test Item Value Reference Range Interpretation Comments BUN (test code = BUN) 97 7-22 [facility]2018-03-13 10:02:00 Test Item Value Reference Range Interpretation Comments Creatinine Lvl (test code = Creatinine 11.80 0.50-1.40 Lvl) [facility]2018-03-13 10:02:00 Test Item Value Reference Range Interpretation Comments Calcium Lvl (test code = Calcium Lvl) 6.8 8.5-10.5 [facility]2018-03-13 10:02:00 Test Item Value Reference Range Interpretation Comments CO2 (test code = CO2) 27 24-32 [facility]2018-03-13 10:02:00 Test Item Value Reference Range Interpretation Comments AGAP (test code = AGAP) 18.6 10.0-20.0 [facility]2018-03-13 10:02:00 Test Item Value Reference Range Interpretation Comments Chloride Lvl (test code = Chloride Lvl) 96 95-109 [facility]2018-03-13 10:02:00 Test Item Value Reference Range Interpretation Comments Magnesium Lvl (test code = Magnesium 1.8 1.8-2.4 Lvl) [facility] TexasJegrwauABXBFWUYCU0234-17-73 10:02:00 Test Item Value Reference Range Interpretation Comments RDW (test code = RDW) 14.3 11.5-14.5 [facility] TexasMkovidsETFFLHRPDN3553-98-93 10:02:00 Test Item Value Reference Range Interpretation Comments MCHC (test code = MCHC) 34.5 32.0-36.0 [facility] TexasOoctqseSVIVOENQDK1979-10-53 10:02:00 Test Item Value Reference Range Interpretation Comments MCH (test code = MCH) 26.8 pg 27.0-31.0 [facility] TexasUdqcrrtDZNFCSNOVR2958-11-89 10:02:00 Test Item Value Reference Range Interpretation Comments MPV (test code = MPV) 8.0 7.4-10.4 [facility] TexasIkenmamNDFZBGOAEK3274-16-25 10:02:00 Test Item Value Reference Range Interpretation Comments Platelet (test code = Platelet) 200 133-450 [facility] TexasHvnzmboFMMUYEPGPY5722-20-92 10:02:00 Test Item Value Reference Range Interpretation Comments MCV (test code = MCV) 77.7 80.0-94.0 [facility] TexasHaynxojXUGPFZGDOO3916-34-76 10:02:00 Test Item Value Reference Range Interpretation Comments Hct (test code = Hct) 24.7 42.0-54.0 [facility] TexasWxlrhjqXSTLXNGREP6281-24-16 10:02:00 Test Item Value Reference Range Interpretation Comments Hgb (test code = Hgb) 8.5 14.0-18.0 [facility] TexasIhihkqgWGQNYGTEFZ5132-92-25 10:02:00 Test Item Value Reference Range Interpretation Comments RBC (test code = RBC) 3.17 4.70-6.10 [facility] TexasFysanbyKHUPUKEQWO7144-47-77 10:02:00 Test Item Value Reference Range Interpretation Comments WBC (test code = WBC) 6.6 3.7-10.4 [facility] TexasCvcglcqPDBQDSJVOB3932-39-38 10:02:00 Test Item Value Reference Range Interpretation Comments Monocytes # (test code 0.7 See_Comment [Aut omated message] The = Monocytes #) system which generated this result tra nsmitted reference range : <=0.8. The reference r yared was not used to int erpret this result as normal/abnormal . [facility] TexasMbhcblsUOFTGUIOZN9947-25-26 10:02:00 Test Item Value Reference Range Interpretation Comments Eosinophils # (test code 0.2 See_Comment [A utomated message] The = Eosinophils #) system whic h generated this result tra nsmitted reference range : <=0.5. The reference r yared was not used to int erpret this result as normal/abnormal . [facility] TexasHwnqdahBGPVSXEONY9472-68-82 10:02:00 Test Item Value Reference Range Interpretation Comments Microcyte (test code = 1+ *ABN*(12/19/17 Microcyte) 5:02 AM) [facility] TexasQuzbwczUHXGKAXURU9246-58-56 10:02:00 Test Item Value Reference Range Interpretation Comments Lymphocytes # (test code = Lymphocytes 1.0 1.0-5.5 #) [facility] TexasHczxuexXABCIJUFUL0696-52-14 10:02:00 Test Item Value Reference Range Interpretation Comments Basophils (test code = 0.6 See_Comment [Aut omated message] The Basophils) system which ge nerated this result tra nsmitted reference range : <=1.0. The reference r yared was not used to int erpret this result as normal/abnormal . [facility] TexasGwmfgqkHNTFVGGUKS4079-20-62 10:02:00 Test Item Value Reference Range Interpretation Comments Segs-Bands # (test code = Segs-Bands #) 4.7 1.5-8.1 [facility] TexasAghsarvHRZNCTVMGK4382-20-25 10:02:00 Test Item Value Reference Range Interpretation Comments Monocytes (test code = Monocytes) 10.3 2.0-12.0 [facility] TexasTxvsnmuCNGRPVQPSJ3190-06-40 10:02:00 Test Item Value Reference Range Interpretation Comments Eosinophils (test code = 2.9 See_Comment [A utomated message] The Eosinophils) system which ge nerated this result tra nsmitted reference range : <=4.0. The reference r yared was not used to int erpret this result as normal/abnormal . [facility] TexasHijjibtEXHGUVSSYW9490-03-09 10:02:00 Test Item Value Reference Range Interpretation Comments Lymphocytes (test code = Lymphocytes) 15.3 20.0-40.0 [facility] TexasKxrzxcjZQHHPIDHWW9393-79-42 10:02:00 Test Item Value Reference Range Interpretation Comments Segs (test code = Segs) 70.9 45.0-75.0 [facility]2018-03-13 10:02:00 Test Item Value Reference Range Interpretation Comments Ca Ion WB (test code = Ca Ion WB) 0.88 1.05-1.25 [facility]2018-03-13 10:02:00 Test Item Value Reference Range Interpretation Comments Ca Norm WB (test code = Ca Norm WB) 0.88 1.05-1.25 [facility]2018-03-12 09:55:00 Test Item Value Reference Range Interpretation Comments Magnesium Lvl (test code = Magnesium 1.9 1.8-2.4 Lvl) [facility]2018-03-12 09:55:00 Test Item Value Reference Range Interpretation Comments Phosphorus (test code = Phosphorus) 8.8 2.5-4.5 [facility] TexasNpcwcxjTFCXUQATQO6596-80-45 09:32:00 Test Item Value Reference Range Interpretation Comments Microcyte (test code = 1+ *ABN*(12/17/17 Microcyte) 4:32 AM) [facility] TexasVvbowyhFEOXJQDPXI3554-10-79 09:32:00 Test Item Value Reference Range Interpretation Comments Eosinophils # (test code 0.2 See_Comment [A utomated message] The = Eosinophils #) system whic h generated this result tra nsmitted reference range : <=0.5. The reference r yared was not used to int erpret this result as normal/abnormal . [facility] TexasKzgiotqEDHAAWBJNJ9826-55-59 09:32:00 Test Item Value Reference Range Interpretation Comments Monocytes # (test code 0.6 See_Comment [Aut omated message] The = Monocytes #) system which generated this result tra nsmitted reference range : <=0.8. The reference r yared was not used to int erpret this result as normal/abnormal . [facility] TexasJzgpbfmXTOVCCHFLO9919-09-23 09:32:00 Test Item Value Reference Range Interpretation Comments Lymphocytes # (test code = Lymphocytes 1.0 1.0-5.5 #) [facility] TexasEbfpzwoCJFCYFTUTK5469-50-89 09:32:00 Test Item Value Reference Range Interpretation Comments Segs-Bands # (test code = Segs-Bands #) 3.9 1.5-8.1 [facility] TexasOrevieaDPYJOKKAYC5052-10-47 09:32:00 Test Item Value Reference Range Interpretation Comments Basophils (test code = 0.6 See_Comment [Aut omated message] The Basophils) system which ge nerated this result tra nsmitted reference range : <=1.0. The reference r yared was not used to int erpret this result as normal/abnormal . [facility] TexasXxzutmpGDPZXRUYRA7477-99-68 09:32:00 Test Item Value Reference Range Interpretation Comments Eosinophils (test code = 2.7 See_Comment [A utomated message] The Eosinophils) system which ge nerated this result tra nsmitted reference range : <=4.0. The reference r yared was not used to int erpret this result as normal/abnormal . [facility] TexasUgzvsytBAOZLNAWDZ8126-08-45 09:32:00 Test Item Value Reference Range Interpretation Comments Monocytes (test code = Monocytes) 10.4 2.0-12.0 [facility] TexasLuotkkyISWAYGSOPA7235-70-60 09:32:00 Test Item Value Reference Range Interpretation Comments Lymphocytes (test code = Lymphocytes) 18.1 20.0-40.0 [facility] TexasFcsngejACOJIEIRFY0874-41-77 09:32:00 Test Item Value Reference Range Interpretation Comments Segs (test code = Segs) 68.2 45.0-75.0 [facility] TexasDvovhioAIOPTPBHDC4332-91-10 09:32:00 Test Item Value Reference Range Interpretation Comments Platelet (test code = Platelet) 213 133-450 [facility] TexasEcbngizEPHQCDEMJV7585-99-63 09:32:00 Test Item Value Reference Range Interpretation Comments RDW (test code = RDW) 14.3 11.5-14.5 [facility] TexasYiwsrvgKPXIOZFGWD5455-41-65 09:32:00 Test Item Value Reference Range Interpretation Comments MPV (test code = MPV) 8.0 7.4-10.4 [facility] TexasZasiffxIUYKJBZYAY8334-45-13 09:32:00 Test Item Value Reference Range Interpretation Comments MCH (test code = MCH) 27.4 pg 27.0-31.0 [facility] TexasUawigqoHJVWQBZBBU2456-66-64 09:32:00 Test Item Value Reference Range Interpretation Comments MCV (test code = MCV) 78.6 80.0-94.0 [facility] TexasZtbglizYFSPOYKDLH6033-10-90 09:32:00 Test Item Value Reference Range Interpretation Comments Hct (test code = Hct) 22.8 42.0-54.0 [facility] TexasUtldogcRQRDUQSBMJ2025-62-09 09:32:00 Test Item Value Reference Range Interpretation Comments MCHC (test code = MCHC) 34.9 32.0-36.0 [facility] TexasPzkswawIWDIXMCMSY0289-46-81 09:32:00 Test Item Value Reference Range Interpretation Comments Hgb (test code = Hgb) 7.9 14.0-18.0 [facility] TexasMsyxddcHBJIOTLKEJ4280-28-55 09:32:00 Test Item Value Reference Range Interpretation Comments RBC (test code = RBC) 2.90 4.70-6.10 [facility] TexasBkpxgnbMIZBJIKNAO8016-54-44 09:32:00 Test Item Value Reference Range Interpretation Comments WBC (test code = WBC) 5.7 3.7-10.4 [facility] TexasPpljvakBYWGXMCYMO5122-86-20 09:32:00 Test Item Value Reference Range Interpretation Comments Sed Rate (test code = 80 See_Comment [Auto mated message] The Sed Rate) system which ge nerated this result transmit emerson reference range : <=15. The reference range was not used to interpr et this result as erinn l/abnormal. [facility] CenterQnfckgbXGRUKRDWTH1093-31-90 09:32:00 Test Item Value Reference Range Interpretation Comments Tot Prot (SPE) (test code = Tot Prot 7.0 6.4-8.4 (SPE)) [facility] CenterCkvlkezDJAJUUOIRN0701-45-34 09:32:00 Test Item Value Reference Range Interpretation Comments SPE Interp (test Total protein and serum code = SPE Interp) albumin are within normal limits. Serum capillary protein electrophoresis shows an elevated alpha-1 globulin fraction. No monoclonal proteins are identified. The electrophoretic pattern is consistent with the acute phase of an inflammatory process. Clinical correlation is required. Interpretation performed at [facility]. [facility] CenterOsskhalMBXWCJQCLZ4148-82-35 09:32:00 Test Item Value Reference Range Interpretation Comments Gamma Glob (test code = Gamma Glob) 1.13 0.71-1.57 [place] [address]-03-11 09:32:00 Test Item Value Reference Range Interpretation Comments Beta Glob (test code = Beta Glob) 0.83 0.50-1.15 [facility] CenterTigghqwPVEQHQTCCJ9934-21-36 09:32:00 Test Item Value Reference Range Interpretation Comments Alpha 2 Glob (test code = Alpha 2 Glob) 0.85 0.45-1.00 [facility] CenterQlyuovcZVMCZRCLRW2880-28-66 09:32:00 Test Item Value Reference Range Interpretation Comments Alpha 1 Glob (test code = Alpha 1 Glob) 0.48 0.18-0.41 [facility] CenterQunpztvDYGTJLAIJC6622-00-84 09:32:00 Test Item Value Reference Range Interpretation Comments Albumin (SPE) (test code = Albumin 3.72 3.57-5.55 (SPE)) [facility] CenterBrxphjyTFFFYQSDHF4585-28-29 09:32:00 Test Item Value Reference Range Interpretation Comments Beta % (test code = Beta %) 11.8 7.8-13.7 [place] 582948-03-11 09:32:00 Test Item Value Reference Range Interpretation Comments Gamma % (test code = Gamma %) 16.2 11.1-18.7 [facility] CenterLypoiwdSDOQFLWKAM3335-36-96 09:32:00 Test Item Value Reference Range Interpretation Comments Alpha 2 % (test code = Alpha 2 %) 12.1 7.0-11.9 [facility] CenterWkoshoiAPDCQLUZAA2124-17-92 09:32:00 Test Item Value Reference Range Interpretation Comments Alpha 1 % (test code = Alpha 1 %) 6.8 2.8-4.9 [place] [address]-03-11 09:32:00 Test Item Value Reference Range Interpretation Comments Albumin % (test code = Albumin %) 53.1 55.8-66.1 [facility] CenterSphhwgqIDDHRHRVVM2054-56-93 09:32:00 Test Item Value Reference Range Interpretation Comments C3 Complement (test code = C3 91 88-201 Complement) [facility] CenterQwgzismEWYXCNDFES6851-19-98 09:32:00 Test Item Value Reference Range Interpretation Comments MIKE Ser Pattern (test See interpretation. code = MIKE Ser Pattern) [facility] CenterKqkxdktTIUEXGNLHZ4798-07-81 09:32:00 Test Item Value Reference Range Interpretation Comments MIKE Ser Interp Serum immunofixation (test code = MIKE electrophoresis reveals a Ser Interp) polyclonal pattern of immunoglobulins. No monoclonal proteins are identified. Interpretation performed at [facility]. [facility] CenterAufkpprUUGYEQYIIX0142-22-49 09:32:00 Test Item Value Reference Range Interpretation Comments C4 Complement (test code = C4 29 16-47 Complement) [facility] CenterUxjrtyqTOSROXKJAC6665-87-88 09:32:00 Test Item Value Reference Range Interpretation Comments P-ANCA (test code = Negative (12/17/17 4:32 P-ANCA) AM) [facility] CenterXnocterFSBHCHZHAA7770-44-31 09:32:00 Test Item Value Reference Range Interpretation Comments C-ANCA (test code = Negative (12/17/17 4:32 C-ANCA) AM) [facility] CenterMwrfwxiJXISJNXBCH4052-50-21 09:32:00 Test Item Value Reference Range Interpretation Comments Hep Bs Ag (test code Negative *NA*(12/17/17 = Hep Bs Ag) 4:32 AM) [facility] CenterDmsvntiNRITGVBYEC9847-26-05 09:32:00 Test Item Value Reference Range Interpretation Comments Hep Bs Ab (test code = Hep Bs Ab) no gt [facility] CenterNikcjeqCPCULGHGPG0343-03-15 09:32:00 Test Item Value Reference Range Interpretation Comments Hep B Core Ab (test Negative *NA*(12/17/17 code = Hep B Core Ab) 4:32 AM) [facility] CenterNphwbcwCSZVWMTFFH0559-72-57 09:32:00 Test Item Value Reference Range Interpretation Comments DNA Ab (DS) (test Negative (12/17/17 4:32 code = DNA Ab (DS)) AM) [facility] CenterVgafscaIAQXSFVCFF5495-39-84 09:32:00 Test Item Value Reference Range Interpretation Comments [place]/[employer] Ratio 3.42 0.26-1.65 (test code = [place]/[employer] Ratio) [facility] CenterBdyesjkJJUWQINAFE6232-76-13 09:32:00 Test Item Value Reference Range Interpretation Comments [place] [employer] (test code = 203.40 3.30-19.40 [place] [employer]) [facility] CenterHwtgdsdFGKJVIHKPL3643-39-80 09:32:00 Test Item Value Reference Range Interpretation Comments L[employer] (test code = 59.41 5.70-26.30 [employer]) [facility] CenterFoufazySNJSHJWRUI4826-98-21 09:32:00 Test Item Value Reference Range Interpretation Comments CHRISTINA (test code = CHRISTINA) Negative (12/17/17 4:32 AM) [facility] CenterCzqilwqDDQNEYMYRO5838-37-01 09:32:00 Test Item Value Reference Range Interpretation Comments RF Qnt (test code = no gt See_Comment [Automa emerson message] The RF Qnt) system which ge nerated this result transmit emerson reference range : <=20. The reference range was not used to interpr et this result as erinn l/abnormal. [facility]2018-03-09 22:29:00 Test Item Value Reference Range Interpretation Comments % Satur Fe (test code = % Satur Fe) 12 12-57 [facility]2018-03-09 22:29:00 Test Item Value Reference Range Interpretation Comments UIBC (test code = UIBC) 238 110-370 [facility]2018-03-09 22:29:00 Test Item Value Reference Range Interpretation Comments TIBC (test code = TIBC) 272 228-428 [facility]2018-03-09 22:29:00 Test Item Value Reference Range Interpretation Comments Iron (test code = Iron) 34 45-160 [facility]2018-03-09 22:29:00 Test Item Value Reference Range Interpretation Comments Ferritin Lvl (test code = Ferritin Lvl) 266 22-275 [facility]2018-03-09 22:29:00 Test Item Value Reference Range Interpretation Comments Vitamin B12 Lvl (test code = Vitamin 047 [id number] B12 Lvl) [facility]2018-03-09 22:29:00 Test Item Value Reference Range Interpretation Comments Folate Lvl (test code = Folate Lvl) 19.0 [facility] [employer]oggannCHEM [id number] 22:29:00 Test Item Value Reference Range Interpretation Comments Vitamin D, 25-OH, Total (test code = 12.3 30.0-100.0 Vitamin D, 25-OH, Total) [facility] [id number] 22:29:00 Test Item Value Reference Range Interpretation Comments PTH Intact (test code = PTH Intact) 396.7 11.1-79.5 [id number] 20:13:00 Test Item Value Reference Range Interpretation Comments Retic Auto (test code = Retic Auto) 1.5 0.5-1.5 [facility] [id number] 20:12:00 Test Item Value Reference Range Interpretation Comments Troponin-I (test code no gt See_Comment [Auto mated message] The = Troponin-I) system which g enerated this result transmit emerson reference range : <=0.40. The reference r yared was not used to interpr et this result as erinn l/abnormal. [facility] HospitalUndertoneCARDIAC [id number] 20:12:00 Test Item Value Reference Range Interpretation Comments Total CK (test code = Total CK) 380 12-191 [facility] HospitalannCARTELOSAC [id number] 20:12:00 Test Item Value Reference Range Interpretation Comments CK MB (test code = CK MB) 5.4 0.5-3.6 [facility] HospitalannCARTELOSAC [id number] 20:12:00 Test Item Value Reference Range Interpretation Comments CK MB Index (test 1.4 1 See_Comment [Automate d message] The code = CK MB Index) system w [facility] generated this result transmit emerson reference range : <=2.5. The reference range was not used to interpr et this result as erinn l/abnormal. [facility]CHEM [id number] 20:12:00 Test Item Value Reference Range Interpretation Comments Phosphorus (test code = >13.5 mg/dL 2.5-4.5 Phosphorus) [facility] HospitalannThe [employer] [id number] 20:12:00 Test Item Value Reference Range Interpretation Comments Bili Total (test code = Bili Total) 0.4 0.2-1.3 [facility] ShodoggToto [id number] 20:12:00 Test Item Value Reference Range Interpretation Comments ALT (test code = ALT) 14 See_Comment [Auto mated message] The system which ge nerated this result transmit emerson reference range : <=65. The reference range was not used to interpr et this result as erinn l/abnormal. [facility] [employer]2018-03-09 20:12:00 Test Item Value Reference Range Interpretation Comments AST (test code = AST) 17 See_Comment [Auto mated message] The system which ge nerated this result transmit emerson reference range : <=37. The reference range was not used to interpr et this result as erinn l/abnormal. [employer]2018-03-09 20:12:00 Test Item Value Reference Range Interpretation Comments Alk Phos (test code = Alk Phos) 115 39-136 [facility] [employer]2018-03-09 20:12:00 Test Item Value Reference Range Interpretation Comments Albumin Lvl (test code = Albumin Lvl) 3.4 3.5-5.0 [facility] [employer]2018-03-09 20:12:00 Test Item Value Reference Range Interpretation Comments Total Protein (test code = Total 7.4 6.4-8.4 Protein) [facility] [employer]2018-03-09 20:12:00 Test Item Value Reference Range Interpretation Comments B/C Ratio (test code = B/C Ratio) 9 1 6-25 [facility] [employer]2018-03-09 20:12:00 Test Item Value Reference Range Interpretation Comments A/G Ratio (test code = A/G Ratio) 0.8 1 0.7-1.6 [facility] [employer]2018-03-09 20:12:00 Test Item Value Reference Range Interpretation Comments Globulin (test code = Globulin) 4.0 2.7-4.2 [facility] [employer]2018-03-09 16:39:00 Test Item Value Reference Range Interpretation Comments Troponin-I (test code no gt See_Comment [Auto mated message] The = Troponin-I) system which g enerated this result transmit emerson reference range : <=0.40. The reference r yared was not used to interpr et this result as erinn l/abnormal. [employer]2018-03-09 16:39:00 Test Item Value Reference Range Interpretation Comments Total CK (test code = Total CK) 350 12-191 [facility] [id number] 16:39:00 Test Item Value Reference Range Interpretation Comments CK MB (test code = CK MB) 4.8 0.5-3.6 [facility] [id number] 16:39:00 Test Item Value Reference Range Interpretation Comments CK MB Index (test 1.4 1 See_Comment [Automate d message] The code = CK MB Index) system w [facility] generated this result transmit emerson reference range : <=2.5. The reference range was not used to interpr et this result as erinn l/abnormal. [facility] [id number] 14:38:00 Test Item Value Reference Range Interpretation Comments U Potassium (test code = U Potassium) 20.0 [facility] [id number] 14:38:00 Test Item Value Reference Range Interpretation Comments U Sodium (test code = U Sodium) 31 [facility] [id number] 14:38:00 Test Item Value Reference Range Interpretation Comments U Chloride (test code = U Chloride) 22 [facility] [id number] 14:38:00 Test Item Value Reference Range Interpretation Comments U Protein (test code = U Protein) 246.9 [facility] [id number] 14:38:00 Test Item Value Reference Range Interpretation Comments U Prot/Creat (test code = U 4.35 1 Prot/Creat) [facility] [id number] 14:38:00 Test Item Value Reference Range Interpretation Comments U Creatinine (test code = U Creatinine) 56.70 [facility] [id number] 14:38:00 Test Item Value Reference Range Interpretation Comments U Osmolality (test code = U Osmolality) 223 300-800 [facility] [id number] 14:38:00 Test Item Value Reference Range Interpretation Comments U Eos (test code = U None Seen (12/15/17 8:38 Eos) AM) [facility] AND [id number] 14:33:00 Test Item Value Reference Range Interpretation Comments Micro? (test code = Performed *NA*(12/15/17 Micro?) 8:33 AM) [facility] [id number] 14:33:00 Test Item Value Reference Range Interpretation Comments UA Urobilinogen (test code = UA <=1.0 mg/dL 0.1-1.0 Urobilinogen) [facility] AND [id number] 14:33:00 Test Item Value Reference Range Interpretation Comments UA Glucose (test code = UA Glucose) 50 [facility] AND [id number] 14:33:00 Test Item Value Reference Range Interpretation Comments UA Color (test code = UA Color) STRAW [facility] AND [id number] 14:33:00 Test Item Value Reference Range Interpretation Comments UA Nitrite (test code Negative (12/15/17 8:33 = UA Nitrite) AM) [facility] AND [id number] 14:33:00 Test Item Value Reference Range Interpretation Comments UA Blood (test code = Small *ABN*(12/15/17 UA Blood) 8:33 AM) [facility] AND [id number] 14:33:00 Test Item Value Reference Range Interpretation Comments UA Leuk Est (test Negative (12/15/17 8:33 code = UA Leuk Est) AM) [facility] AND [id number] 14:33:00 Test Item Value Reference Range Interpretation Comments UA WBC (test code = 3 See_Comment [Automa emerson message] The UA WBC) system which ge nerated this result transmit emerson reference range : <=5. The reference range was not used to interpr et this result as erinn l/abnormal. [facility] AND [id number] 14:33:00 Test Item Value Reference Range Interpretation Comments UA Sq Epi (test code = UA Sq Occasional /LPF Epi) [facility] AND [id number] 14:33:00 Test Item Value Reference Range Interpretation Comments UA Mucus (test code = UA Mucus) Few /LPF [facility] AND [id number] 14:33:00 Test Item Value Reference Range Interpretation Comments UA RBC (test code = 1 See_Comment [Automa emerson message] The UA RBC) system which ge nerated this result transmit emerson reference range : <=2. The reference range was not used to interpr et this result as erinn l/abnormal. [facility] AND [id number] 14:33:00 Test Item Value Reference Range Interpretation Comments UA Turbidity (test code Slight *ABN*(12/15/17 = UA Turbidity) 8:33 AM) [facility] AND [id number] 14:33:00 Test Item Value Reference Range Interpretation Comments UA Spec Grav (test code = UA Spec 1.008 1 Grav) [facility] AND [id number] 14:33:00 Test Item Value Reference Range Interpretation Comments UA Ketones (test code = UA Negative mg/dL Ketones) [facility] AND [id number] 14:33:00 Test Item Value Reference Range Interpretation Comments UA pH (test code = UA pH) 5.0 1 5.0-8.0 [facility] AND [id number] 14:33:00 Test Item Value Reference Range Interpretation Comments UA Bili (test code = Negative *NA*(12/15/17 UA Bili) 8:33 AM) [facility] AND [id number] 14:33:00 Test Item Value Reference Range Interpretation Comments UA Protein (test code = UA Protein) 100 mg/dL [facility] [id number] 12:48:00 Test Item Value Reference Range Interpretation Comments CK MB Index (test 1.3 1 See_Comment [Automate d message] The code = CK MB Index) system w [facility] generated this result transmit emerson reference range : <=2.5. The reference range was not used to interpr et this result as erinn l/abnormal. [facility] [id number] 12:48:00 Test Item Value Reference Range Interpretation Comments proBNP (test code = 4088 See_Comment [Automa emerson message] The proBNP) system which ge nerated this result tra nsmitted reference range : <=125. The reference r yared was not used to int erpret this result as erinn l/abnormal. [facility]annC[facility]AC [id number] 12:48:00 Test Item Value Reference Range Interpretation Comments Total CK (test code = Total CK) 357 12-191 [facility]annC[facility] [id number] 12:48:00 Test Item Value Reference Range Interpretation Comments CK MB (test code = CK MB) 4.8 0.5-3.6 [facility] [id number] 12:48:00 Test Item Value Reference Range Interpretation Comments Troponin-I (test code no gt See_Comment [Auto mated message] The = Troponin-I) system which g enerated this result transmit emerson reference range : <=0.40. The reference r yared was not used to interpr et this result as erinn l/abnormal. [facility] HospitalTivity [id number] 12:48:00 Test Item Value Reference Range Interpretation Comments A/G Ratio (test code = A/G Ratio) 0.8 1 0.7-1.6 [facility] [id number] 12:48:00 Test Item Value Reference Range Interpretation Comments Total Protein (test code = Total 7.0 6.4-8.4 Protein) [facility]2018-03-09 12:48:00 Test Item Value Reference Range Interpretation Comments Globulin (test code = Globulin) 3.9 2.7-4.2 [facility]2018-03-09 12:48:00 Test Item Value Reference Range Interpretation Comments Albumin Lvl (test code = Albumin Lvl) 3.1 3.5-5.0 [facility] HospitalUndertoneSAMPSON REGIONAL MEDICAL [id number] 12:48:00 Test Item Value Reference Range Interpretation Comments Bili Total (test code = Bili Total) 0.4 0.2-1.3 [facility]2018-03-09 12:48:00 Test Item Value Reference Range Interpretation Comments Alk Phos (test code = Alk Phos) 108 39-136 [facility]2018-03-09 12:48:00 Test Item Value Reference Range Interpretation Comments ALT (test code = ALT) 15 See_Comment [Auto mated message] The system which ge nerated this result transmit emerson reference range : <=65. The reference range was not used to interpr et this result as erinn l/abnormal. [facility] Hospital[facility] [id number] 12:48:00 Test Item Value Reference Range Interpretation Comments AST (test code = AST) 13 See_Comment [Auto mated message] The system which ge nerated this result transmit emerson reference range : <=37. The reference range was not used to interpr et this result as erinn l/abnormal. [facility] Hospital[facility] [id number] 12:48:00 Test Item Value Reference Range Interpretation Comments B/C Ratio (test code = B/C Ratio) 9 1 6-25 [facility] [id number] 12:48:00 Test Item Value Reference Range Interpretation Comments D-Dimer (test code = D-Dimer) 1.17 [facility]
== END 2022-04-25 16:51 | disposition home or self-care (01) | DRG 177 ==
LOC: ER 12:31 → ERHOLD 17:52 → OBSVTOIN 04-22 07:56 → 2ND 04-22 15:26
PROVIDERS: ADMIT Internal Medicine; ATTEND Internal Medicine
PROC: 5A1D70Z Performance of Urinary Filtration, Intermittent, Less than 6 Hours Per Day (ICD-10-PCS; principal; 2022-04-21)
PROC: 5A1D70Z Performance of Urinary Filtration, Intermittent, Less than 6 Hours Per Day (ICD-10-PCS; 2022-04-22)
PROC: 5A1D70Z Performance of Urinary Filtration, Intermittent, Less than 6 Hours Per Day (ICD-10-PCS; 2022-04-25)
DX: U07.1 COVID-19 (principal); N18.6 End stage renal disease; I12.0 Hypertensive chronic kidney disease with stage 5 chronic kidney disease or end stage renal disease; I82.622 Acute embolism and thrombosis of deep veins of left upper extremity; E11.22 Type 2 diabetes mellitus with diabetic chronic kidney disease; E87.5 Hyperkalemia; N25.0 Renal osteodystrophy; D64.9 Anemia, unspecified; Z99.2 Dependence on renal dialysis
CPT/HCPCS: 36415; 71046; 80048; 80053; 82947; 83735; 84100; 85025; 85610; 85730; 87070; 87081; 87804; 90935; 93005; 94760; 96365; 96375; 99284; G0257; G0378; J0360; J0610; J1644; J1815; U0003

== ENCOUNTER 2022-08-28 14:01 | Emergency (ER) | payer OTHER ==
--- OUTSIDE RECORDS SUMMARY | 2022-08-28 14:39 | XMS REPORT | Continuity of Care Document ---
:1960 Author Organization [facility] t Address [address] [place] [address] Care Team Providers Name Role Phone Toya Andrew Primary Care Physician [id number] Attending Clinician Unavailable OMID SHARIF Attending Clinician Unavailable TEODORA MERRILL Attending Clinician Unavailable YESENIA SHRESTHA Attending Clinician Unavailable Adilia Olsen MD Attending Clinician Rufina Hartley RN Attending Clinician Unavailable Theresa Lara Attending Clinician Unavailable Teodora Merrill MD Attending Clinician ADILIA OLSEN Attending Clinician Unavailable Toya Andrew Attending Clinician [facility] Attending Clinician Unavailable Dionne Shaw MD Attending Clinician [phone] SHANNA TESFAYE Attending Clinician Unavailable Shanna Tesfaye II Attending Clinician Paulo Hong Attending Clinician JOHN YORK Attending Clinician Unavailable Cecy Arias Attending Clinician CECY ARIAS Attending Clinician UnavailMELIZA Ray Attending Clinician Unavailable Norma SAAB, Jair Clayton Attending Clinician Unavailable Quita Tanner Attending Clinician Heriberto CRUZ, Pam Attending Clinician Roxy CRUZ, Eric Ruiz Attending Clinician Trevor Rachel Attending Clinician TREVOR RACHEL Attending Clinician Unavailable Omid Sharif MD Attending Clinician James CRUZ, John Tavarez Attending Clinician Paulina Skinner Attending Clinician Doctor Unassigned, [place] Attending Clinician Unavailable ANGIE CLEANING Attending Clinician Unavailable Black CRUZ, Angie Schilling Attending Clinician Mina CRUZ, Anna Keita Attending Clinician [phone] Megha Choi Attending Clinician MEGHA CHOI Attending Clinician Unavailable Ramses Eldridge MD Attending Clinician Only, Adc Test Attending Clinician Unavailable Clayton Waller Attending Clinician Marci Faulkner Attending Clinician MARCI FAULKNER Attending Clinician Unavailable RAMSES ELDRIDGE Attending Clinician Unavailable Redd Moses Attending Clinician Debi Moreira Attending Clinician Bandar Soto Attending Clinician Roger Cha Attending Clinician Joanne Aldrich Attending Clinician [phone] David Dexter Attending Clinician Leeann Sumner Attending Clinician Osvaldo Hector Jr Attending Clinician [id number] Admitting Clinician Unavailable OMID SHARIF Admitting Clinician Unavailable TEODORA MERRILL Admitting Clinician Unavailable YESENIA SHRESTHA Admitting Clinician Unavailable SHANNA TESFAYE Admitting Clinician Unavailable Shanna Tesfaye II Admitting Clinician Paulo Hong Admitting Clinician MELIZA LUQUE Admitting Clinician Unavailable Eric Ramsey MD Admitting Clinician ANGIE CLEANING Admitting Clinician Unavailable Angie Cleaning MD Admitting Clinician Teodora Merrill MD Admitting Clinician Redd Moses Admitting Clinician Debi Moreira Admitting Clinician Bandar Soto Admitting Clinician Roger Cha Admitting Clinician David Dexter Admitting Clinician Leeann Sumner Admitting Clinician Payers Payer Name Policy Type Policy Number Effective Date Expiration Date S quan FORMERLY [facility] [id number] MEDICARE PART A \\T\\ [id number] 2018 B 00:00:00 COMMERCIAL [id number] 2018 NON-CONTRACT 00:00:00 GENERIC Problems Condition Condition Condition Status Onset Resolution Last Treating Co mments Source Name Details Category Date Date Treatment Clinician Date ESRD ESRD Diagnosis Active 2019-102020-08-12 Mem oria NEEDING NEEDING 0- 08:39:00 l DIALYSIS, DIALYSIS, 00:00: Herm dionne VOLUME VOLUME 00 OVERLOAD OVERLOAD Active 08/06/2020 Venu PEARSON - DR SENT - Diagnosis Active 2019-102020-08-06 Memoria FLUID FLUID 0-29 16:50:00 l OVERLOAD OVERLOAD 00:00: Rafael n Active 00 08/06/2020 [facility] DIALYSIS DIALYSIS Diagnosis Active 2019-102020-07-24 [facility] ISSUE ISSUE 08:37:00 l Active 00:00: [place] 07/24/2020 [facility] PERITONITI PERITONIT Diagnosis Active 2020-07-09 Macho S, IS, 07-06 16:32:00 l DIABETES, DIABETES, 00:00: Herm dionne ESRD ON ESRD ON 00 DIALYSIS DIALYSIS Active 07/06/2020 [facility] ABD PAIN ABD PAIN Diagnosis Active 2020-07-06 Memoria Active 07-06 07:06:00 l 07/06/2020 00:00: Rafael n [facility] 00 [place] Dyspnea on Dyspnea on Disease Active U nivers exertion exertion - ity of 00:00: [place] 00 [facility] Dyspnea Dyspnea Disease Active 2019- Univers 06-21 ity of 00:00: [place] 00 [facility] Branch WEAKNESS WEAKNESS Diagnosis Active 2020-08-[facility] AND AND 05-21 11:45:00 l SWELLING SWELLING 00:00: Rafael cee Active 00 05/21/2020 [facility] Colon Colon Disease Active Overview: Univer s cancer cancer 05-13 Formattin ity of screening screening 00:00: [place] 00 note Medical might be Branch different from the original. Added automatic ally from request for surgery [id number] ESRD (end ESRD (end Disease Active Uni vers stage stage 6-18 ity of renal renal 00:00: [place] disease) disease) 00 Medica l Branch NAUSEA/VOM NAUSEA/VO Diagnosis [facility] 01:05:00 l Active 00:00: [place] 03/23/2020 [facility] GIB GIB Disease Active Univers (gastroint (gastroint 6-15 it y of estinal estinal 00:00: [place] bleeding) bleeding) 00 Medi sony Branch Gastrointe Gastrointe Disease Active Overview : Univers stinal stinal 6-15 Formattin ity of hemorrhage hemorrhage 00:00: g of this [place] with with 00 note Medical melena melena might be Branch different from the original. Added automatic ally from request for surgery [id number] Obesity Obesity Disease Active Univers (BMI (BMI 5-27 ity of 30-39.9) 30-39.9) 00:00: [place] 00 Medical Branch FEVER FEVER Diagnosis Active 2020-02-26 Mem oria Active 02-02 11:06:00 l 02/03/2020 00:00: Rafael cee [facility] 00 [place] Harvinder Blanton Disease Active Overview : Univers r polyp r polyp 2-06 Formattin ity o f 00:00: g of this 00 note Medical might be Branch different from the original. Added automatic ally from request for surgery [id number] AMS, AMS, Diagnosis Active 2019-10-31 Mem oria HYPONATREM HYPONATREM 10-28 11:04:00 l IA IA Active 00:00: [place] 10/28/2019 00 [facility] [place] NUMBNESS NUMBNESS Diagnosis Active 2019-10-28 Memoria Active 10-28 20:30:00 l 10/28/2019 00:00: Rafael cee [facility] 00 [place] AMS AMS Diagnosis Active 2018-102019-09-23 Mem oria Active 10-14 21:56:00 l 08/14/2019 10:52: Rafael cee [facility] 00 [place] PNA PNA Diagnosis Active 2019-04-05 Mem oria Active 04-05 20:15:00 l 04/05/2019 00:00: Rafael cee [facility] 00 [place] DIZZINES, DIZZINES, Diagnosis Active 2019-04-15 Memoria PNEUMONIA, PNEUMONIA, 04-05 21:55:00 l END STAGE END STAGE 00:00: Herm dionne RENAL DIS RENAL DIS 00 Active 04/05/2019 Venu Sellers ESRD ESRD Diagnosis Active 2017-102018-12-14 Annie oria NEEDING NEEDING 0-13 09:50:00 l DIALYSIS, DIALYSIS, 00:00: Herm dionne ACUTE ACUTE 00 PULMONARY PULMONARY E E Active 07/21/[address] DR. Diagnosis Active 2017-102018-07-21 Annie oriforrest REFERRAL REFERRAL 0-13 21:30:00 l Active 00:00: [place] 07/21/[address] DR. Diagnosis Active 2017-102018-07-20 Annie oria REFFERAL REFFERAL 0-12 20:08:00 l Active 00:00: [place] 07/20/2018 00 [facility] [place] RENAL/DO RENAL/DO Diagnosis Active 2018-07-31 Memoria NOT USE NOT USE 05-23 12:39:00 l FOR FOR 06:00: [place] CHARGES CHARGES 00 F/C NOTES F/C NOTES O O Active 05/23/2018 [facility] NEW NEW Diagnosis Active 2018-05-23 Mem oria EVALUATION EVALUATION 05-09 10:28:00 l Active 00:00: [place] 05/09/2018 00 [place] [facility] HYPERTENSI HYPERTENS Diagnosis Active 2018-04-16 Memoria VE RONEN 04-14 13:14:00 l URGENCY, URGENCY, 08:00: Rafael cee CHEST PAIN CHEST PAIN 00 Active 04/14/2018 [facility] CHEST PAIN CHEST Diagnosis Active 2018-04-15 Memoria PAIN 04-14 01:42:00 l Active 08:00: [place] 04/14/2018 00 [facility] ACUTE ACUTE Diagnosis Active 2018-03-19 Mem oria DYSPNEA DYSPNEA 03-16 13:39:00 l Active 00:00: [place] 03/16/[address] [facility] WEAKNESS WEAKNESS Diagnosis Active 2018-03-17 Memoria Active 03-16 05:41:00 l 03/16/2018 00:00: Rafael n [facility] 00 [place] ESRD (end ESRD (end Disease Active Uni vers stage stage 4-28 ity of renal renal 00:00: [place] disease) disease) 00 Medica l on on Branch dialysis dialysis IN NEED OF IN NEED Diagnosis Active 2018-01-22 Memoria DIALYSIS OF -16 18:51:00 l DIALYSIS 00:00: [place] Active 00 01/22/2018 [facility] SOB SOB Diagnosis Active 2017-12-15 Mem oria Active 12-15 07:37:00 l 12/15/2017 00:00: Rafael n [facility] 00 [place] ACUTE ACUTE Diagnosis Active 2017-12-15 [facility] oria RENAL RENAL 12-15 10:05:00 l FAILURE, FAILURE, 00:00: Rafael cee FLUID FLUID 00 OVERLOAD, OVERLOAD, CHF CHF Active 12/15/2017 [facility] DIZZINESS Diagnosis Active 2019-04-15 Memoria AND DIZZINESS 21:55:00 l GIDDINESS AND [place] GIDDINESS Active [facility] DYSPNEA, DYSPNEA, Diagnosis Active 2018-03-19 Memoria UNSPECIFIE UNSPECIFIE 13:39:00 l D D Active [facility] ACUTE Diagnosis Active 2017-12-15 Mem oria KIDNEY KIDNEY 10:05:00 l FAILURE, FAILURE, Rafael n UNSPECIFIE UNSPECIFIE D D Active [facility] HEART HEART Diagnosis Active 2017-12-15 Mem oria FAILURE, FAILURE, 10:05:00 l UNSPECIFIE UNSPECIFIE He rmann D D Active [facility] ACUTE ACUTE Diagnosis Active 2018-12-14 [facility] oria PULMONARY PULMONARY 09:50:00 l EDEMA EDEMA [place] Active [facility] End stage End stage Problem 2020-08-14 Memoria renal renal 23:33:32 l disease disease Mar[place] 08/14/2020 [facility] Type 2 Type 2 Problem 2019-02-10 Kojo lynn diabetes diabetes 12:48:45 l mellitus mellitus Rafael n with with diabetic diabetic chronic chronic kidney kidney disease disease 02/10/2019 [facility] Hypertensi Problem 2019-02-10 M emoria ve chronic Hypertensi 12:48:45 l kidney ve chronic Rafael n disease kidney with stage disease 5 chronic with stage kidney 5 chronic disease or kidney end stage disease or renal end stage disease renal disease 02/10/2019 [facility] Dependence Problem 2019-02-10 M emoria on renal Dependence 12:48:45 l dialysis on renal Rafael coleman dialysis 02/10/2019 [facility] Anxiety Anxiety Problem 2019-02-06 Il moria disorder, disorder, 14:42:13 l unspecifie unspecifie He rmann d d 02/06/2019 [facility] Sleep Sleep Problem 2019-02-10 Memor ia apnea, apnea, 12:48:45 l unspecifie unspecifie He rmann d d 02/10/2019 [facility] 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-06 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 14:42:13 l (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) Herm dionne 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 therapy 02/06/2019 [facility] Pericardia Pericardi Problem 2019-02-10 Memoria l effusion al 12:48:45 l (noninflam effusion Herm dionne matory) (noninflam matory) 02/10/2019 [facility] Nausea Nausea Problem 2019-02-06 Kojo lynn 02/06/2019 14:42:13 l [facility] Other Other Problem 2019-02-06 Memor ia symptoms symptoms 14:42:13 l and signs and signs Herm dionne concerning concerning food and food and fluid fluid intake intake 02/06/2019 [facility] Pneumonia, Pneumonia Problem 2019-04-10 Memoria unspecifie , 22:02:39 l d organism unspecifie He rmann d organism 04/10/ 9 [facility] Altered Altered Problem 2019-11-07 Me moria mental mental 23:47:53 l status, status, [place] unspecifie unspecifie d d 11/07/2019 [facility] Acute Acute Problem 2019-02-10 Memor ia pulmonary pulmonary 12:48:45 l edema edema [place] 02/10/2019 [facility] Acute Acute Problem 2019-02-10 Memor ia kidney kidney 12:48:45 l failure, failure, Rafael cee unspecifie unspecifie d d 02/10/2019 [facility] Fluid Fluid Problem 2019-02-10 Memor ia overload, overload, 12:48:45 l unspecifie unspecifie He rmann d d 02/10/2019 [facility] Obesity, Obesity, Problem 2019-02-10 Memoria unspecifie unspecifie 12:48:45 l d d [place] 02/10/2019 [facility] Body mass Body mass Problem 2019-02-10 Memoria index index 12:48:45 l (BMI) (BMI) Mar[place] 33.0-33.9, 33.0-33.9, adult adult 02/10/2019 [facility] Chronic Chronic Problem 2019-02-10 M emoria obstructiv obstructiv 12:48:45 l e e [place] pulmonary pulmonary disease, disease, unspecifie unspecifie d d 02/10/2019 [facility] Dyspnea, Dyspnea, Problem 2018-03-23 Memoria unspecifie unspecifie 01:53:56 l d d [place] 03/23/2018 [facility] Single Single Problem 2020-08-10 Kojo lynn liveborn liveborn 09:04:08 l , infant, [place] delivered delivered vaginally vaginally 08/10/2020 [facility] Hypocalcem Hypocalce Problem 2018-03-28 Memoria ia jesenia 12:58:31 l 03/28/2018 Rafael cee [facility] Other Other Problem 2018-03-28 Memor ia disorders disorders 12:58:31 l of of [place] phosphorus phosphorus metabolism metabolism 8 [facility] Hypo-osmol Hypo-osmo Problem 2018-03-28 Memoria ality and lality and 12:58:31 l hyponatrem hyponatrem He rmann ia ia 03/28/2018 [facility] Iron Iron Problem 2018-03-28 Memor ia deficiency deficiency 12:58:31 l anemia, anemia, [place] unspecifie unspecifie d d 03/28/2018 [facility] Secondary Secondary Problem 2018-03-28 Memoria hyperparat hyperparat 12:58:31 l hyroidism hyroidism Herm dionne of renal of renal origin origin 03/28/2018 [facility] Acute Acute Problem 2018-03-28 Memor ia diastolic diastolic 12:58:31 l (congestiv (congestiv He rmann e) heart e) heart failure failure 03/28/2018 [facility] Anemia in Anemia Problem 2018-03-28 Memoria other in other 12:58:31 l chronic chronic [place] diseases diseases classified classified elsewhere elsewhere 03/28/2018 [facility] Atheroscle Atheroscl Problem 2018-03-28 Memoria rosis of erosis of 12:58:31 l renal renal [place] artery artery 03/28/2018 [facility] Obstructiv Obstructi Problem 2018-03-28 Memoria e sleep ve sleep 12:58:31 l apnea apnea [place] (adult) (adult) (pediatric (pediatric ) ) 03/28/2018 [facility] Anxiety Anxiety Problem Resolve 2020-08-14 M emoria (finding) (finding) d 23:33:32 l Resolved [place] Problem 08/14/2020 [facility] Sleep Sleep Problem Resolve 2020-08-14 Kojo lynn apnea apnea d 23:33:32 l (finding) (finding) Herm dionne Resolved Problem 08/14/2020 [facility] Pericardia Pericardi Problem Active 2020-08-14 Memoria l effusion al 23:33:32 l (disorder) effusion Herm dionne (disorder) Active Problem 08/14/2020 [facility] Simple Simple Problem Active 2020-08-14 Kojo lynn obesity obesity 23:33:32 l (disorder) (disorder) He rmann Active Problem 08/14/2020 [facility] ALTERED ALTERED Diagnosis Active 2019-10-31 Memoria MENTAL MENTAL 11:04:00 l STATUS, STATUS, [place] UNSPECIFIE UNSPECIFIE D D Active [facility] PERITONITI Diagnosis Active 2020-07-09 Memoria S, PERITONITI 16:32:00 l UNSPECIFIE S, Rafael n D UNSPECIFIE D Active [facility] HYPO-OSMOL HYPO-OSMO Diagnosis Active 2019-10-31 Memoria ALITY AND LALITY AND 11:04:00 l HYPONATREM HYPONATREM He rmann IA IA Active [facility] TYPE 2 TYPE 2 Diagnosis Active 2020-07-09 Me moria DIABETES DIABETES 16:32:00 l MELLITUS MELLITUS Rafael n WITHOUT WITHOUT COMPLIC COMPLIC Active [facility] END STAGE END STAGE Diagnosis Active 2020-08-12 Memoria RENAL RENAL 08:39:00 l DISEASE DISEASE [place] Active [facility] FLUID FLUID Diagnosis Active 2020-08-12 Mem oria OVERLOAD, OVERLOAD, 08:39:00 l UNSPECIFIE UNSPECIFIE He rmann D D Active [facility] SINGLE SINGLE Diagnosis Active 2020-08-09 Il moria LIVEBORN LIVEBORN 07:58:00 l , , [place] DELIVERED DELIVERED VAGINA VAGINA Active [facility] PNEUMONIA, PNEUMONIA Diagnosis Active 2019-04-15 Memoria UNSPECIFIE , 21:55:00 l D ORGANISM UNSPECIFIE He rmann D ORGANISM Active [facility] DM DM Disease Active Univers (diabetes (diabetes ity of mellitus) mellitus) [facility] HTN HTN Disease Active Univers (hypertens (hypertens it y of ion) ion) [facility] History of Past Illness Condition Condition Condition Status Onset Resolution Last Treating Co mments Source Name Details Category Date Date Treatment Clinician Date Localized Localized Problem 2019-102020-07-26 2020-07-26 Memoria edema edema 0-16 21:30:35 21:30:35 l 07/24/2020 17:00: Rafael n 07/26/2020 [facility] Hypokalemi Hypokalem Problem 2019-102020-07-26 2020-07-26 Memoria a ia 0-16 21:30:35 21:30:35 l 07/24/2020 17:00: Rafael n 07/26/2020 [facility] Type 2 Type 2 Problem 2020-07-17 2020-07-17 Memoria diabetes diabetes 9-28 22:26:03 22:26:03 l mellitus mellitus 17:00: Rafael cee without without 00 complicati complicati ons ons 07/06/2020 07/17/2020 [facility] Anemia, Anemia, Problem 2020-05-23 2020-05-23 Memoria unspecifie unspecifie 05-21 21:26:40 21:26:40 l d d 17:00: [place] 05/21/202005/23/2020 [facility] Constipati Constipat Problem 2020-05-23 2020-05-23 Memewelina on, ion, 05-21 21:26:40 21:26:40 l unspecifie unspecifie 17:00: Jarad escalera d 00 05/21/2020 05/23/2020 [facility] Pain in Pain in Problem 2020-02-05 2020-02-05 Memoria right hip right hip 02-02 21:56:20 21:56:20 l 02/03/2020 17:00: Rafael cee 02/05/2020 00 [facility] Fever, Fever, Problem 2020-02-05 2020-02-05 Memoria unspecifie unspecifie 02-02 21:56:20 21:56:20 l d d 17:00: [place] 02/03/202002/05/2020 [facility] Unspecifie Unspecifi Problem 2020-02-05 2020-02-05 Macho d fall, ed fall, 02-02 21:56:20 21:56:20 l initial initial 17:00: [place] encounter encounter 00 02/03/2020 02/05/2020 [facility] Other Other Problem 2017-102019-02-10 2019-02-10 M emoria specified specified 12:48:45 12:48:45 l complicati complicati 04:09: Jarad rider on of on of vascular vascular prosthetic prosthetic devices, devices, implants implants and and grafts, grafts, initial initial encounter encounter 07/31/2018 02/10/2019 [facility] Hyperkalem Hyperkale Problem 2017-102019-02-06 2019-02-06 Macho ia jesenia 0-12 14:42:13 14:42:13 l 07/20/2018 05:00: Rafael cee 00 9 Glo Unspecifie Unspecifi Problem 2017-2019-02-06 2019-02-06 Memoria d ed 0-12 14:42:13 14:42:13 l complicati complicati 05:00: He rmdionne on of on of 00 internal internal prosthetic prosthetic device, device, implant implant and graft, and graft, initial initial encounter encounter 07/20/2018 02/06/2019 [facility] Hypertens Problem 2017-2018-03-28 2018-03-28 Memewelina ve heart ronen heart 12-28 12:58:31 12:58:31 l disease disease 03:49: [place] with heart with heart 05 failure failure 12/28/2017 03/28/2018 [facility] Chronic Chronic Problem 2017-2018-01-25 2018-01-25 Macho kidney kidney 01-22 04:46:18 04:46:18 l disease, disease, 05:00: Rafael cee unspecifie unspecifie 00 d d 01/22/2018 01/25/2018 [facility] Allergies, Adverse Reactions, Alerts Allergy Allergy Status Severity Reaction(s) Onset Inactive Treating Comm ents Source Name Type Date Date Clinician NO KNOWN Drug Active Univers ALLERGIE Class ity of [facility] [place] [facility] Social History Social Habit Start Date Stop Date Quantity Comments Source Tobacco use and 2020-03-23 2020-03-23 Smokeless tobacco Un iversity of exposure 00:00:00 00:00:00 non-user [place] [facility] History SDHI 2020-03-23 2020-03-23 5 University o f Financial 00:00:00 00:00:00 [place] [facility] History SDHI Food 2020-03-23 2020-03-23 1 Univers ity of Worry 00:00:00 00:00:00 [place] [facility] History SDHI Food 2020-03-23 2020-03-23 1 Univers ity of Scarcity 00:00:00 00:00:00 [place] [facility] History SDHI 2020-03-23 2020-03-23 2 University o f Transport Med 00:00:00 00:00:00 [place] Medic al Branch History SDHI 2020-03-23 2020-03-23 2 University o f Transport Non-Med 00:00:00 00:00:00 [facility] edical Branch Social History 2019-08-15 2019-08-15 [facility] 14:23:20 14:23:20 Sex [birth year] Universit y of 00:00:00 00:00:00 [facility] Smoking Status Start Date Stop Date Source Never smoked tobacco [facility] Medications Ordered Filled Start Stop Current Ordering [...] acid Branch (FAUZIA-CONOR) 0.8 mg tablet zolpidem Yes 10mg Take [...] acid Branch (FAUZIA-CONOR) 0.8 mg tablet zolpidem Yes 10mg Take [...] acid Branch (FAUZIA-CONOR) 0.8 mg tablet zolpidem Yes 10mg Take [...] acid Branch (FAUZIA-CONOR) 0.8 mg tablet zolpidem Yes 10mg Take [...] acid Branch (FAUZIA-CONOR) 0.8 mg tablet zolpidem Yes 10mg Take [...] by mouth ity of 10:42: at bedtime [place] 32 as needed Medical for Branch Insomnia. [...] by mouth ity of 10:42: at bedtime [place] 32 as needed Medical for Branch Insomnia. diazePAM Yes 10mg Take 10 mg Uni vers (VALIUM) 5 7-15 by mouth 2 ity of mg tablet 10:42: (two) [place] 32 times Medical daily as Branch needed. fentaNYL 2019-10 No Route: IV, Mem oria (ANES) 10-12 Drug form: l 18:10: INJ, ONCE, Stop date: 08/12/20 12:10:00 [employer]EARCH [employer]INE[employer] lidocaine 2019-10 No Route: IV, Me moria (ANES) 10-12 Drug form: l 18:10: INJ, ONCE, Stop date: 08/12/20 12:10:00 [employer] ENGINEER propofol 2019-10 No Route: IV, Mem oria (ANES) 10-12 Drug form: l 18:10: INJ, ONCE, Stop date: 08/12/20 12:10:00 [employer] ENGINEER ondansetron 2019-10 No Route: IV, Memoria (ANES) 10-12 Drug form: l 18:10: INJ, ONCE, Stop date: 08/12/20 12:10:00 [employer]ARCH AGR[employer]URAL ENGINEER metoclopram 2019-10 No Route: IV, Memoria jeanna (ANES) - Drug form: l 18:10: INJ, ONCE, Stop date: 08/12/20 12:10:00 [employer]EARCH AGRICULTURAL ENGINEER fentaNYL 2019-10 No Route: IV, Mem oria (ANES) 1- Drug form: l 18:10: INJ, ONCE, Stop date: 08/12/20 12:10:00 [employer]ARCH [employer]URAL ENGINEER lidocaine 2019-10 No Route: IV, Me moria (ANES) 1- Drug form: l 18:10: INJ, ONCE, Stop date: 08/12/20 12:10:00 [employer]ARCH [employer] ENGINEER propofol 2019-10 No Route: IV, Mem oria (ANES) 1- Drug form: l 18:10: INJ, ONCE, Stop date: 08/12/20 12:10:00 [employer]EARCH [employer] ENGINEER ondansetron 2019-10 No Route: IV, Memoria (ANES) - Drug form: l 18:10: INJ, ONCE, Stop date: 08/12/20 12:10:00 [employer]EARCH AGRIC[employer]URAL ENGINEER metoclopram 2019-10 No Route: IV, Memoria jeanna (ANES) - Drug form: l 18:10: INJ, ONCE, Stop date: 08/12/20 12:10:00 [employer]EARCH AGRICULTURAL ENGINEER ceFAZolin 2019-10 No Route: IV, Me moria (ANES) 1- Drug form: l 17:50: INJ, ONCE, Stop date: 08/12/20 11:50:00 [employer]EARCH AGRICULTURAL ENGINEER ceFAZolin 2019-10 No Route: IV, Me moria (ANES) 1- Drug form: l 17:50: INJ, ONCE, Stop date: 08/12/20 11:50:00 [employer]EARCH A[employer] ENGINEER Sodium 2019-10 No Route: IV, Memor ia Chloride 1-04 Total l 0.9% IV 17:14: Volume: Marlo (ANES) 500 00 500, Start mL date: 08/12/20 11:14:00 [employer]EARCH AGRICULTURAL ENGINEER, Stop date: 08/12/20 12:14:00 RESEARCH AGRICULTURAL ENGINEER Sodium 2019-10 No Route: IV, Memor ia Chloride 1-04 Total l 0.9% IV 17:14: Volume: [place] (ANES) 500 00 500, Start mL date: 08/12/20 11:14:00 RESEARCH AGRICULTURAL ENGINEER, Stop date: 08/12/20 12:14:00 RESEARCH AGRICULTURAL ENGINEER Sodium 2019- No 500 mL, Memoria Chloride 1-04 Rate: 75 l 0.9% IV 500 16:52: ml/hr, Herm dionne mL 00 Infuse over: 6.7 hr, Route: IV, Dosing Weight 111.182 kg, Total Volume: 500, Start date: 08/12/20 10:52:00 RESEARCH AGRICULTURAL ENGINEER, Duration: 1 doses or times, Stop date: 08/12/20 17:33:00 RESEARCH AGRICULTURAL ENGINEER, 2.32, m2, 0 Sodium 2019- No 500 mL, Memoria Chloride 1-04 Rate: 75 l 0.9% IV 500 16:52: ml/hr, Herm dionne mL 00 Infuse over: 6.7 hr, Route: IV, Dosing Weight 111.182 kg, Total Volume: 500, Start date: 08/12/20 10:52:00 RESEARCH AGRICULTURAL ENGINEER, Duration: 1 doses or times, Stop date: 08/12/20 17:33:00 RESEARCH AGRICULTURAL ENGINEER, 2.32, m2, 0 Potassium 2019-10 No [...] s with feeding tube less than 14 [place] (Dobhoff, J-tube etc) and pediatric and patients. [...] s with feeding tube less than 14 [place] (Dobhoff, J-tube etc) and pediatric and patients. Hydralazine 2019-10 No 10 mg, Kojo lynn 1-03 Route: l 21:11: IVP, Q4H, [place] 00 Dosing Weight 111.182, kg, PRN Hypertensi on, Start date: 08/11/20 15:11:00 RESEARCH AGRICULTURAL ENGINEER, Duration: 30 day, Stop date: 09/10/20 15:10:00 RESEARCH AGRICULTURAL ENGINEER Hydralazine 2019-10 No 10 mg, Kojo lynn 10-11 Route: l 21:11: IVP, Q4H, Dosing Weight 111.182, kg, PRN Hypertensi on, Start date: 08/11/20 15:11:00 RESEARCH AGRICULTURAL ENGINEER, Duration: 30 day, Stop date: 09/10/20 15:10:00 RESEARCH AGRICULTURAL ENGINEER Potassium 2019-10 No Notes: Memori a [...] s with feeding tube less than 14 [place] (Dobhoff, J-tube etc) and pediatric and patients. [...] s with feeding tube less than 14 [place] (Dobhoff, J-tube etc) and pediatric and patients. epoetin 2019-10 No Notes: Memoria franca - (Same as: l 15:00: Procrit) epoetin franca 2000 unit/1 ml VL Non-formul heydi For dialysis use only (Epogen) WASTE: F/P - Red; E -Red MEDICATION WASTE Product Size: 2000 mg Product Wasted: ___ mg epoetin 2019-10 No Notes: Memoria franca 1-02 (Same as: l 15:00: Procrit) epoetin franca 2000 unit/1 ml VL Non-formul heydi For dialysis use only (Epogen) WASTE: F/P - Red; E -Red MEDICATION WASTE Product Size: 2000 mg Product Wasted: ___ mg Ambien 2019-10 No Notes: Memoria - (Same As: l 04:24: Ambien) [place] Ambien 2019-10 No Notes: Memoria - (Same As: l 04:24: Ambien) [place] Melatonin 2019-10 No Notes: Kojo lynn MG [...] Dialysis, Priority: STAT, Start date: 08/09/20 9:10:00 RESEARCH AGRICULTURAL ENGINEER, Duration: 1 doses or times, Stop date: Limited # of times, 0 heparin 2019-10 No 10,000 Memoria 1-01 unit, 10 l 15:10: mL, Route: DIALYSIS, Drug form: INJ, ONCALL, Dosing Weight 111.182, kg, PRN Dialysis, Priority: STAT, Start date: 08/09/20 9:10:00 RESEARCH AGRICULTURAL ENGINEER, Duration: 1 doses or times, Stop [...] franca 0-31 (Same as: l 14:30: Procrit) [place] 00 epoetin franca 77813 unit/1 ml VL. Non-formul heydi For dialysis use only. (Procrit) WASTE: F/P - Red; E -Red MEDICATION WASTE Product Size: 95583 unit Product Wasted: ___ unit epoetin 2019-10 No Notes: Memoria franca 0-31 (Same as: l 14:30: Procrit) [place] 00 epoetin franca 15800 unit/1 ml VL. Non-formul heydi For dialysis use only. (Procrit) WASTE: F/P - Red; E -Red MEDICATION WASTE Product Size: 56623 unit Product Wasted: ___ unit Sodium 2019-10 No 250 mL, Memoria Chloride 0-31 Rate: To l 0.9% 14:13: prime line [place] (titrate) 00 and flush 250 mL remaining blood products., Dosing Weight 111.182, kg, Route: IV, Total Volume: 250, Priority: Routine, Start Date: 08/08/20 9:13:00 CDT, Duration: 1 day, Stop date: 08/09/20 9:12:00 RESEARCH AGRICULTURAL ENGINEER, Replace Every: 24 hr, 0 Sodium 2019-10 No 250 mL, Memoria Chloride 0-31 Rate: To l 0.9% 14:13: prime line [place] (titrate) 00 and flush 250 mL remaining blood products., Dosing Weight 111.182, kg, Route: IV, Total Volume: 250, Priority: Routine, Start Date: 08/08/20 9:13:00 CDT, Duration: 1 day, Stop date: 08/09/20 9:12:00 RESEARCH AGRICULTURAL ENGINEER, Replace Every: 24 hr, 0 Amlodipine 2019-10 No 1 cap, Memor ia 10 MG / 0-31 Route: PO, l Benazepril 14:00: Drug Form: H ermann hydrochlori 00 CAP, de 20 MG Dosing Oral Weight Capsule 111.182, kg, Daily, Start date: 08/08/20 9:00:00 CDT, Duration: 30 day, Stop date: 09/06/20 9:00:00 RESEARCH AGRICULTURAL ENGINEER carvedilol 2019-10 No 12.5 mg, Mem oria 0-31 Route: PO, l 14:00: Drug form: [place] 00 TAB, Q12H, Dosing Weight 111.182, kg, Start date: 08/08/20 9:00:00 CDT, Duration: 30 day, Stop date: 09/06/20 21:00:00 RESEARCH AGRICULTURAL ENGINEER amLODIPine 2019-10 No Notes: Memor ia 0-31 (Same as: l 14:00: Norvasc) [place] 00 lisinopril 2019-10 No Notes: Memor ia 0-31 (Same as: l 14:00: Prinivil, [place] Zestril) Amlodipine 2019-10 No 1 cap, Memor ia 10 MG / 0-31 Route: PO, l Benazepril 14:00: Drug Form: H ermann hydrochlori 00 CAP, de 20 MG Dosing Oral Weight Capsule 111.182, kg, Daily, Start date: 08/08/20 9:00:00 CDT, Duration: 30 day, Stop date: 09/06/20 9:00:00 RESEARCH AGRICULTURAL ENGINEER carvedilol 2019-10 No 12.5 mg, Mem oria 0-31 Route: PO, l 14:00: Drug form: [place] 00 TAB, Q12H, Dosing Weight 111.182, kg, Start date: 08/08/20 9:00:00 CDT, Duration: 30 day, Stop date: 09/06/20 21:00:00 RESEARCH AGRICULTURAL ENGINEER amLODIPine 2019-10 No Notes: Memor ia 0-31 (Same as: l 14:00: Norvasc) [place] lisinopril 2019-10 No Notes: Memor ia 0-31 (Same as: l 14:00: Prinivil, [place] Zestril) Dilaudid 2019-10 No Notes: Memoria 0-31 Same as: l 13:46: Dilaudid [place] 00 Dilaudid 2019-10 No Notes: Memoria 0-31 Same as: l 13:46: Dilaudid [place] Epogen 2019-10 No 11,000 Memoria 0-31 unit, l 13:01: Route: [place] 00 SUB-Q, Drug form: INJ, Q-M-W-F, Dosing Weight 111.182, kg, Priority: NOW, Start date: 08/08/20 8:01:00 CDT, Duration: 30 day, Stop date: 09/04/20 9:00:00 RESEARCH AGRICULTURAL ENGINEER Epogen 2019- No 11,000 Memoria 0-31 unit, l 13:01: Route: [place] 00 SUB-Q, Drug form: INJ, Q-M-W-F, Dosing Weight 111.182, kg, Priority: NOW, Start date: 08/08/20 8:01:00 CDT, Duration: 30 day, Stop date: 09/04/20 9:00:00 RESEARCH AGRICULTURAL ENGINEER Morphine 2019-10 No Notes: Memoria 0-31 (Same l 10:27: as:MORPhin [place] 00 e Sulfate) Morphine 2019-10 No Notes: Memoria 0-31 (Same l 10:27: as:MORPhin [place] 00 e Sulfate) Morphine 2019-10 No Notes: Memoria 0-31 (Same l 01:44: as:MORPhin [place] 00 e Sulfate) Morphine 2019-10 No Notes: Memoria 0-31 (Same l 01:44: as:MORPhin [place] 00 e Sulfate) normal 2019-10 No 2,000 mL, Memori a saline 0.9% 0-30 Rate: 100 l IV 2,000 mL 22:22: ml/hr, Herm dionne 00 Infuse over: 20 hr, Route: IV, Dosing Weight 111.182 kg, Total Volume: 2,000, Start date: 08/07/20 17:22:00 CDT, Duration: 30 day, Stop date: 09/06/20 17:21:00 RESEARCH AGRICULTURAL ENGINEER, 2.32, m2, 0 normal 2019-10 No 2,000 mL, Memori a saline 0.9% 0-30 Rate: 100 l IV 2,000 mL 22:22: ml/hr, Herm dionne 00 Infuse over: 20 hr, Route: IV, Dosing Weight 111.182 kg, Total Volume: 2,000, Start date: 08/07/20 17:22:00 CDT, Duration: 30 day, Stop date: 09/06/20 17:21:00 RESEARCH AGRICULTURAL ENGINEER, 2.32, m2, 0 Lasix 2019-10 No 80 mg, Memoria 0-30 Route: l 13:00: IVP, Drug [place] 00 form: INJ, BID Diuretic, Dosing Weight 117.002, kg, Start date: 08/07/20 8:00:00 CDT, Duration: 30 day, Stop date: 09/05/20 16:00:00 RESEARCH AGRICULTURAL ENGINEER Lasix 2019-10 No 80 mg, Memoria 0-30 Route: l 13:00: IVP, Drug [place] 00 form: INJ, BID Diuretic, Dosing Weight 117.002, kg, Start date: 08/07/20 8:00:00 CDT, Duration: 30 day, Stop date: 09/05/20 16:00:00 RESEARCH AGRICULTURAL ENGINEER Magnesium 2019-10 No Notes: Memori a Sulfate 0-30 WASTE: F/P l 12:58: - Sink; E [place] 00 - Municipal Trash Bin Potassium 2019-10 No Notes: Memori a Chloride 0-30 (Same as: l 12:58: K-Dur 20) [place] 00 "Do Not Crush" Give with food and full glass of water For patients unable to swallow tablet, dissolve in one half glass of water. Allow about 2 minutes for the tablets to disintegra te. Stir before giving to prepare slurry and administer . Please exclude Patient s with feeding tube less than 14 [place] (Dobhoff, J-tube etc) and pediatric and patients. Magnesium 2019-10 No Notes: Memori a Sulfate 0-30 WASTE: F/P l 12:58: - Sink; E [place] 00 - Municipal Trash Bin Potassium 2019-10 No Notes: Memori a Chloride 0-30 (Same as: l 12:58: K-Dur 20) [place] 00 "Do Not Crush" Give with food and full glass of water For patients unable to swallow tablet, dissolve in one half glass of water. Allow about 2 minutes for the tablets to disintegra te. Stir before giving to prepare slurry and administer . Please exclude Patient s with feeding tube less than 14 [place] (Dobhoff, J-tube etc) and pediatric and patients. Potassium 2019-10 No Notes: Memori a Chloride 0-30 Infuse at l 11:00: a rate of [place] 00 10 mEq/hr. (Same as: KCL) Potassium 2019-10 No Notes: Memori a Chloride 0-30 Infuse at l 11:00: a rate of [place] 00 10 mEq/hr. (Same as: KCL) normal [...] Duration: 30 day, Stop date: 09/06/20 5:36:00 RESEARCH AGRICULTURAL ENGINEER, 2.32, m2 normal 2019-10 No 250 mL, Memoria saline 0.9% 0-30 Rate: 50 l IV 250 mL 10:37: ml/hr, Rafael n 00 Infuse over: 5 hr, Route: IV, Dosing Weight 111.182 kg, Total Volume: 250, Start date: 08/07/20 5:37:00 CDT, Duration: 30 day, Stop date: 09/06/20 5:36:00 RESEARCH AGRICULTURAL ENGINEER, 2.32, m2 Hydralazine 2019-10 No Notes: [...] Memoria 0-30 (Same As: l 05:20: Ambien) [place] 00 heparin 2019-10 No Notes: Memoria 0-30 porcine l 05:00: heparin [place] heparin 2019-10 No Notes: [facility]oria 0-30 porcine l 05:00: heparin [place] 00 Lasix 2019-10 No Notes: Memoria 0-30 (Same as: l 01:32: Lasix) [place] 00 MEDICATION WASTE Product Size: 40 mg Product Wasted: ___ mg Lasix 2019-10 No Notes: Memoria 0-30 (Same as: l 01:32: Lasix) [place] 00 MEDICATION WASTE Product Size: 40 mg Product Wasted: ___ mg Ondansetron 2019-10 No Notes: Kjoo lynn 0-30 (Same as: l 01:31: Zofran) [place] 00 MEDICATION WASTE Product Size: 4 mg Product Wasted: ___ mg Acetaminoph 2019-10 No Notes: Do M emoria en 325 MG / 0-30 not exceed l Hydrocodone 01:31: 4gm/day of [place] Bitartrate 00 acetaminop 10 MG Oral hen. (Same Tablet as: [place] [[place] 325/10) 10/325] Acetaminoph 2019-10 No Notes: Kojo lynn en 325 MG / 0-30 (Same as: l Hydrocodone 01:31: [place] nn Bitartrate 00 325/5) Do 5 MG Oral not exceed Tablet 4gm/day of [[place] acetaminop 5/325] hen. Ondansetron 2019-10 No Notes: Kojo lynn 0-30 (Same as: l 01:31: Zofran) [place] 00 MEDICATION WASTE Product Size: 4 mg Product Wasted: ___ mg Acetaminoph 2019-10 No Notes: Do M emoria en 325 MG / 0-30 not exceed l Hydrocodone 01:31: 4gm/day of [place] Bitartrate 00 acetaminop 10 MG Oral hen. (Same Tablet as: [place] [[place] 325/10) 10325] Acetaminoph 2020- No Notes: Kojo lynn en 325 MG / 0-30 (Same as: l Hydrocodone 01:31: [place] nn Bitartrate 00 325/5) Do 5 MG Oral not exceed Tablet 4gm/day of [[place] acetaminop 5/325] hen. Dilaudid 2019-10 No 1 mg, Memoria 0-30 Route: l 01:16: IVP, ONCE, [place] 00 Dosing Weight 117.002, kg, Priority: STAT, Start date: 08/06/20 20:16:00 CDT, Stop date: 08/06/20 20:16:00 CDT Dilaudid 2019- No 1 mg, Memoria 0-30 Route: l 01:16: IVP, ONCE, Dosing Weight 117.002, kg, Priority: STAT, Start date: 08/06/20 20:16:00 CDT, Stop date: 08/06/20 20:16:00 CDT Dextrose 2020-1 No 12.5 gm, Memor ia 50% Syringe 0-30 25 mL, l (D50W) 01:09: Route: [place] 00 IVP, Drug Form: INJ, Dosing Weight 117.002, kg, PRN, PRN Blood Glucose Results, Start date: 08/06/20 20:09:00 CDT, Duration: 30 day, Stop date: 09/05/20 19:08:00 RESEARCH AGRICULTURAL ENGINEER, 0 Glucagon 2019-1 No 1 mg, Memoria 0-30 Route: IM, l 01:09: Drug form: [place] 00 PDR/INJ, PRN, Dosing Weight 117.002, kg, PRN Blood Glucose Results, Start date: 08/06/20 20:09:00 CDT, Duration: 30 day, Stop date: 09/05/20 19:08:00 RESEARCH AGRICULTURAL ENGINEER, 0 Dextrose 2020-1 No 12.5 gm, Memor ia 50% Syringe 0-30 25 mL, l (D50W) 01:09: Route: [place] 00 IVP, Drug Form: INJ, Dosing Weight 117.002, kg, PRN, PRN Blood Glucose Results, Start date: 08/06/20 20:09:00 CDT, Duration: 30 day, Stop date: 09/05/20 19:08:00 RESEARCH AGRICULTURAL ENGINEER, 0 Glucagon 2019- No 1 mg, Memoria 0-30 Route: IM, l 01:09: Drug form: PDR/INJ, PRN, Dosing Weight 117.002, kg, PRN Blood Glucose Results, Start date: 08/06/20 20:09:00 CDT, Duration: 30 day, Stop date: 09/05/20 19:08:00 RESEARCH AGRICULTURAL ENGINEER, 0 Magnesium 2020-1 No Notes: Memori [...] s with feeding tube less than 14 [place] (Dobhoff, J-tube etc) and pediatric and patients. [...] s with feeding tube less than 14 [place] (Dobhoff, J-tube etc) and pediatric and patients. Dilaudid 2019-1 No 1 mg, Memoria 0-29 Route: l 23:27: IVP, ONCE, Dosing Weight 117.002, kg, Priority: STAT, Start date: 08/06/20 18:27:00 CDT, Stop date: 08/06/20 18:27:00 CDT Dilaudid 2019- No 1 mg, Memoria 0-29 Route: l 23:27: IVP, ONCE, [place] Dosing Weight 117.002, kg, Priority: STAT, Start date: 08/06/20 18:27:00 CDT, Stop date: 08/06/20 18:27:00 CDT Potassium 2020-1 No 40 mEq, Memor ia Chloride 0 Route: PO, l 22:56: Drug form: [place] 00 ERTAB, ONCE, Dosing Weight 117.002, kg, Priority: STAT, Start date: 08/06/20 17:56:00 CDT, Stop date: 08/06/20 17:56:00 CDT Potassium 2019- No 40 mEq, Memor ia Chloride 0 Route: PO, l 22:56: Drug form: [place] 00 ERTAB, ONCE, Dosing Weight 117.002, kg, Priority: STAT, Start date: 08/06/20 17:56:00 CDT, Stop date: 08/06/20 17:56:00 CDT Morphine 2019-1 No 4 mg, Memoria 0- Route: l 22:44: IVP, ONCE, Dosing Weight 117.002, kg, Priority: STAT, Start date: 08/06/20 17:44:00 CDT, Stop date: 08/06/20 17:44:00 CDT Zofran 2019- No 4 mg, Memoria 0- Route: l 22:44: IVP, Drug [place] 00 form: INJ, ONCE, Dosing Weight 117.002, kg, Priority: STAT, Start date: 08/06/20 17:44:00 CDT, Stop date: 08/06/20 17:44:00 CDT Morphine 2019-1 No 4 mg, Memoria 0-29 Route: l 22:44: IVP, ONCE, [place] 00 Dosing Weight 117.002, kg, Priority: STAT, Start date: 08/06/20 17:44:00 CDT, Stop date: 08/06/20 17:44:00 CDT Zofran 2019-1 No 4 mg, Memoria 0-29 Route: l 22:44: IVP, Drug [place] 00 form: INJ, ONCE, Dosing Weight 117.002, [...] 20 MG Pharmacy: [facility] [place], 170.18, cm, 07/06/20 5:14:00 CDT, Height, 105, kg, 07/06/20 5:14:00 CDT, Weight cefdinir 2019-10 Yes 300 mg = 1 Mem oria 300 MG Oral 0-07 cap, PO, l Capsule 17:35: Daily, X 7 Herm dionne 00 day, # 7 cap, 0 Refill(s), Pharmacy: [facility] [place], 170.18, cm, 07/06/20 5:14:00 CDT, Height, 105, kg, 07/06/20 5:14:00 CDT, Weight Metronidazo 2019-10 Yes 500 mg = 1 Memoria le 500 MG 0-07 tab, PO, l Oral Tablet 17:35: Q8H, X 7 [place] r[place] [Flagyl] 00 day, # 21 tab, 0 Refill(s), Pharmacy: [facility], 170.18, cm, 07/06/20 5:14:00 CDT, Height, 105, kg, 07/06/20 5:14:00 CDT, Weight Amlodipine 2019-10 Yes 1 cap, PO, M emoria 10 MG / 0-07 Daily, # l Benazepril 17:35: 30 cap, 0 He rmann hydrochlori 00 Refill(s), de 20 MG Pharmacy: [facility] [place], 170.18, cm, 07/06/20 5:14:00 CDT, Height, 105, kg, 07/06/20 5:14:00 CDT, Weight cefdinir 2019-10 Yes 300 mg = 1 Mem oria 300 MG Oral 0-07 cap, PO, l Capsule 17:35: Daily, X 7 Herm dionne 00 day, # 7 cap, 0 Refill(s), Pharmacy: [facility], 170.18, cm, 07/06/20 5:14:00 CDT, Height, 105, kg, 07/06/20 5:14:00 CDT, Weight Metronidazo 2019-10 Yes 500 mg = 1 Memoria le 500 MG 0-07 tab, PO, l Oral Tablet 17:35: Q8H, X 7 He r[place] [Flagyl] 00 day, # 21 tab, 0 Refill(s), Pharmacy: [facility], 170.18, cm, 07/06/20 5:14:00 CDT, Height, 105, kg, 07/06/20 5:14:00 CDT, Weight Protonix 2019-10 No Notes: Memoria 0-07 Tablet l 12:30: should not [place] 00 be chewed or crushed. (Same as: Protonix) Protonix 2019-10 No Notes: Memoria 0-07 Tablet l 12:30: should not [place] 00 be chewed or crushed. (Same as: Protonix) Potassium 2019-10 No Notes: Memori a Chloride 0-06 (Same as: l 22:47: K-Dur 20) [place] 00 "Do Not Crush" Give with food and full glass of water For patients unable to swallow tablet, dissolve in one half glass of water. Allow about 2 minutes for the tablets to disintegra te. Stir before giving to prepare slurry and administer . Please exclude Patient s with feeding tube less than 14 [place] (Dobhoff, J-tube etc) and pediatric and patients. [...] s with feeding tube less than 14 [place] (Dobhoff, J-tube etc) and pediatric and patients. Clonidine 2019-10 No Notes: Memori a 0-06 (Same As: l 22:46: Catapres) [place] 00 Clonidine 2019-10 No Notes: Memori a 0-06 [...] a 0-06 Same as: l 17:00: Renvela [place] 00 sevelamer 2019-10 No Notes: Memori a 0-06 Same as: l 17:00: Renvela [place] 00 Potassium 2019-10 No Notes: Memori a Chloride 0-06 (Same as: l 13:00: K-Dur 20) [place] 00 "Do Not Crush" Give with food and full glass of water For patients unable to swallow tablet, dissolve in one half glass of water. Allow about 2 minutes for the tablets to disintegra te. Stir before giving to prepare slurry and administer . Please exclude Patient s with feeding tube less than 14 [place] (Dobhoff, J-tube etc) and pediatric and patients. [...] s with feeding tube less than 14 [place] (Dobhoff, J-tube etc) and pediatric and patients. [...] 0-05 (Same as: l 12:44: K-Dur 20) [place] "Do Not Crush" Give with food and full glass of water For patients unable to swallow tablet, dissolve in one half glass of water. Allow about 2 minutes for the tablets to disintegra te. Stir before giving to prepare slurry and administer . Please exclude Patient s with feeding tube less than 14 [place] (Dobhoff, J-tube etc) and pediatric and patients. [...] s with feeding tube less than 14 [place] (Dobhoff, J-tube etc) and pediatric and patients. [...] 0-04 (Same as: l 15:16: K-Dur 20) [place] 00 "Do Not Crush" Give with food and full glass of water For patients unable to swallow tablet, dissolve in one half glass of water. Allow about 2 minutes for the tablets to disintegra te. Stir before giving to prepare slurry and administer . Please exclude Patient s with feeding tube less than 14 [place] (Dobhoff, J-tube etc) and pediatric and patients. Potassium 2019-10 No Notes: Memori a Chloride 0-04 (Same as: l 15:16: K-Dur 20) [place] 00 "Do Not Crush" Give with food and full glass of water For patients unable to swallow tablet, dissolve in one half glass of water. Allow about 2 minutes for the tablets to disintegra te. Stir before giving to prepare slurry and administer . Please exclude Patient s with feeding tube less than 14 [place] (Dobhoff, J-tube etc) and pediatric and patients. Flagyl 2019-10 No Notes: Memoria 0-03 (Same as: l 23:00: Flagyl) [place] 00 Avoid alcohol. Flagyl 2019-10 No Notes: Memoria 0-03 (Same as: l 23:00: Flagyl) [place] 00 Avoid alcohol. Potassium 2019-10 No Notes: [...] s with feeding tube less than 14 [place] (Dobhoff, J-tube etc) and pediatric and patients. [...] s with feeding tube less than 14 [place] (Dobhoff, J-tube etc) and pediatric and patients. [...] 0-01 25 mL, l (D50W) 19:27: Route: [place] 00 IVP, Drug Form: INJ, Dosing Weight [...] Lispro 0-01 (Same as: l 19:27: Humalog) [place] 00 Roll in palms of hands gently; [...] 0-01 Route: IM, l 19:27: Drug form: [place] 00 PDR/INJ, PRN, Dosing Weight 105, kg, [...] e. Expires in days from ____Date Potassium 2019- No Notes: Memori a Chloride 0-01 (Same as: l 15:51: K-Dur 20) [place] 00 "Do Not Crush" Give with food and full glass of water For patients unable to swallow tablet, dissolve in one half glass of water. Allow about 2 minutes for the tablets to disintegra te. Stir before giving to prepare slurry and administer . Please exclude Patient s with feeding tube less than 14 [place] (Dobhoff, J-tube etc) and pediatric and patients. Potassium 2019-10 No Notes: Memori a Chloride 0-01 (Same as: l 15:51: K-Dur 20) [place] 00 "Do Not Crush" Give with food and full glass of water For patients unable to swallow tablet, dissolve in one half glass of water. Allow about 2 minutes for the tablets to disintegra te. Stir before giving to prepare slurry and administer . Please exclude Patient s with feeding tube less than 14 [place] (Dobhoff, J-tube etc) and pediatric and patients. [...] 9-30 (Same as: l 13:16: K-Dur 20) [place] 00 "Do Not Crush" Give with food and full glass of water For patients unable to swallow tablet, dissolve in one half glass of water. Allow about 2 minutes for the tablets to disintegra te. Stir before giving to prepare slurry and administer . Please exclude Patient s with feeding tube less than 14 [place] (Dobhoff, J-tube etc) and pediatric and patients. [...] s with feeding tube less than 14 [place] (Dobhoff, J-tube etc) and pediatric and patients. Tylenol No Notes: Do Memor ia 9-29 not exceed l 15:39: 4 gm/day. [place] 00 (Same as: Tylenol) Tylenol No Notes: Do Memor ia 9-29 not exceed l 15:39: 4 gm/day. [place] 00 (Same as: Tylenol) Roxicodone 2019-0 No [...] interfere w/enteral feedings. Take With Food Hydralazine 0 No Notes: Kojo lynn 07-07 (Same as: [...] s with feeding tube less than 14 [place] (Dobhoff, J-tube etc) and pediatric and patients. [...] s with feeding tube less than 14 [place] (Dobhoff, J-tube etc) and pediatric and patients. Epogen No Notes: oria 07-07 Same as: l 13:08: Retacrit) epoetin franca-epbx 34155 unit/1 ml VL. WASTE: F/P - Red; E Red MEDICATION WASTE Product Size: 06559 unit Product Wasted: ___ unit Epogen No Notes: Memoria 07-07 Same as: l 13:08: Retacrit) epoetin franca-epbx 18344 unit/1 ml VL. WASTE: F/P - Red; E Red MEDICATION WASTE Product Size: 34899 unit Product Wasted: ___ unit potassium 2020-0 [...] s with feeding tube less than 14 [place] (Dobhoff, J-tube etc) and pediatric and patients. [...] s with feeding tube less than 14 [place] (Dobhoff, J-tube etc) and pediatric and patients. carvedilol 2019-0 No Notes: Memor ia 07-07 Give with l 02:00: food. [place] 00 (Same As: Coreg) tamsulosin 2019-0 No Notes: Memor ia 07-07 (Same As: l 02:00: Flomax) [place] 00 "Do Not Crush" carvedilol 2019-0 No Notes: Memor ia 07-07 Give with l 02:00: food. [place] (Same As: Coreg) tamsulosin 2019-0 No Notes: Memor ia 07-07 (Same As: l 02:00: Flomax) [place] "Do Not Crush" ferric 2020-0 Yes See [...] A DAY WITH SNACKS, 0 Refill(s) heparin 2019-0 No Notes: Memoria sodium, 07-06 [...] 1000 mg Product Wasted: ___ mg Amlodipine 0 No 1 cap, Memor ia [...] not exceed l #3 17:42: 4gm/day of [place] acetaminop hen. (Same as: Tylenol with Codeine # 3) Diazepam No Notes: Memoria 07-06 (Same as: l 17:42: Valium) [place] acetaminoph No Notes: Do M emoria en-codeine 07-06 not exceed l #3 17:42: 4gm/day of [place] acetaminop hen. (Same as: Tylenol with Codeine # 3) Diazepam No Notes: Memoria 07-06 (Same as: l 17:42: Valium) [place] 00 potassium No Notes: Memori a chloride 07-06 (Same as: l 16:00: Potassium [place] Chloride) potassium No Notes: Memori a chloride 07-06 (Same as: l 16:00: Potassium [place] 00 Chloride) Hydromorpho No Notes: Kojo lynn ne 07-06 Same as: l 13:57: Dilaudid [place] Acetaminoph No Notes: Do M emoria en 325 MG / 07-06 not exceed l Hydrocodone 13:57: 4gm/day of [place] Bitartrate 00 acetaminop 10 MG Oral hen. (Same Tablet as: [place] [[place] 325/10) ] Hydromorpho No Notes: Kojo lynn ne 07-06 Same as: l 13:57: Dilaudid [place] Acetaminoph 2020-0 No Notes: Do M emoria en 325 MG / 07-06 not exceed l Hydrocodone 13:57: 4gm/day of [place] Bitartrate 00 acetaminop 10 MG Oral hen. (Same Tablet as: [place] [[place] 325/10) 10325] Potassium 2020-0 No 60 mEq, Memor ia [...] ne 07-06 Route: l 12:40: IVP, ONCE, [place] Dosing Weight 105, kg, Priority: STAT, Start date: 07/06/20 7:40:00 CDT, Stop date: 07/06/20 7:40:00 CDT Hydromorpho 2020-0 No 1 mg, Memor ia ne 07-06 Route: l 12:40: IVP, ONCE, [place] Dosing Weight 105, kg, Priority: STAT, Start date: 07/06/20 7:40:00 CDT, Stop date: 07/06/20 7:40:00 CDT Morphine 2020-0 No 6 mg, Memoria 07-06 Route: l 12:39: IVP, ONCE, [place] Dosing Weight 105, kg, Priority: STAT, Start date: 07/06/20 7:39:00 CDT, Stop date: 07/06/20 7:39:00 CDT Morphine 2020-0 No 6 mg, Memoria 07-06 Route: l 12:39: IVP, ONCE, [place] Dosing Weight 105, kg, Priority: STAT, Start date: 07/06/20 7:39:00 CDT, Stop date: 07/06/20 7:39:00 CDT cefepime 2020-0 No Notes: Memoria 07-06 (Same As: l 11:05: Maxipime) [place] 00 MEDICATION WASTE Product Size: 1000 mg Product Wasted: ___ mg cefepime 2020-0 No Notes: Memoria 07-06 (Same As: l 11:05: Maxipime) [place] 00 MEDICATION WASTE Product Size: 1000 mg Product Wasted: ___ mg Vancomycin 2020-0 No 2000 mg: Me moria 07-06 infuse l 11:04: over 2.5 [place] 00 hours For adult patients only: Round to nearest 250 mg per Medical Staff approval MEDICATION WASTE Product Size: 1000 mg Product Wasted: ___ mg Vancomycin 2020-0 No 2000 mg: Me moria 07-06 infuse l 11:04: over 2.5 [place] 00 hours For adult patients only: Round to nearest 250 mg per Medical Staff approval MEDICATION WASTE Product Size: 1000 mg Product Wasted: ___ mg Morphine 2020-0 No Notes: Memoria 07-06 (Same l 10:32: as:MORPhin [place] 00 e Sulfate) Morphine 2019-0 No Notes: [facility]oria 07-06 (Same l 10:32: as:MORPhin [place] 00 e Sulfate) furosemide 2020-0 Yes [id number] 80mg Take 1 U nivers (LASIX) 80 9-15 tablet by ity of mg tablet 00:00: mouth [place] 00 every Medical morning Branch and evening. tamsulosin 2020-0 Yes [id number] .4mg Take 1 U nivers 0.4 mg 24 9-15 capsule by ity of hr capsule 00:00: mouth [place] 00 daily. Medical Branch furosemide 2020-0 Yes [id number] 80mg Take 1 U nivers (LASIX) 80 9-15 tablet by ity of mg tablet 00:00: mouth [place] 00 every Medical morning Branch and evening. tamsulosin 2020-0 Yes [id number] .4mg Take 1 U nivers 0.4 mg 24 9-15 capsule by ity of hr capsule 00:00: mouth [place] 00 daily. Medical Branch furosemide 2020-0 Yes [id number] 80mg Take 1 U nivers (LASIX) 80 9-15 tablet by ity of mg tablet 00:00: mouth [place] 00 every Medical morning Branch and evening. tamsulosin 2020-0 Yes [id number] .4mg Take 1 U nivers 0.4 mg 24 9-15 capsule by ity of hr capsule 00:00: mouth [place] 00 daily. Medical Branch furosemide 2020-0 Yes [id number] 80mg Take 1 U nivers (LASIX) 80 9-15 tablet by ity of mg tablet 00:00: mouth [place] 00 every Medical morning Branch and evening. tamsulosin 2020-0 Yes [id number] .4mg Take 1 U nivers 0.4 mg 24 9-15 capsule by ity of hr capsule 00:00: mouth [place] 00 daily. Medical Branch furosemide 2020-0 Yes [id number] 80mg Take 1 U nivers (LASIX) 80 9-15 tablet by ity of mg tablet 00:00: mouth [place] 00 every Medical morning Branch and evening. tamsulosin 2020-0 Yes [id number] .4mg Take 1 U nivers 0.4 mg 24 9-15 capsule by ity of hr capsule 00:00: mouth [place] 00 daily. Medical Branch furosemide 2020-0 Yes [id number] 80mg Take 1 U nivers (LASIX) 80 9-15 tablet by ity of mg tablet 00:00: mouth [place] 00 every Medical morning Branch and evening. tamsulosin 2020-0 Yes [id number] .4mg Take 1 U nivers 0.4 mg 24 9-15 capsule by ity of hr capsule 00:00: mouth [place] 00 daily. Medical Branch furosemide 2020-0 Yes [id number] 80mg Take 1 U nivers (LASIX) 80 9-15 tablet by ity of mg tablet 00:00: mouth [place] 00 every Medical morning Branch and evening. tamsulosin 2020-0 Yes [id number] .4mg Take 1 U nivers 0.4 mg 24 9-15 capsule by ity of hr capsule 00:00: mouth [place] 00 daily. Medical Branch furosemide 2020-0 Yes [id number] 80mg Take 1 U nivers (LASIX) 80 9-15 tablet by ity of mg tablet 00:00: mouth [place] 00 every Medical morning Branch and evening. tamsulosin 2020-0 Yes [id number] .4mg Take 1 U nivers 0.4 mg 24 9-15 capsule by ity of hr capsule 00:00: mouth [place] 00 daily. Medical Branch furosemide 2020-0 Yes [id number] 80mg Take 1 U nivers (LASIX) 80 9-15 tablet by ity of mg tablet 00:00: mouth [place] 00 every Medical morning Branch and evening. tamsulosin 2020-0 Yes [id number] .4mg Take 1 U nivers 0.4 mg 24 9-15 capsule by ity of hr capsule 00:00: mouth [place] 00 daily. Medical Branch furosemide 2020-0 Yes [id number] 80mg Take 1 U nivers (LASIX) 80 9-15 tablet by ity of mg tablet 00:00: mouth [place] 00 every Medical morning Branch and evening. tamsulosin 2020-0 Yes [id number] .4mg Take 1 U nivers 0.4 mg 24 9-15 capsule by ity of hr capsule 00:00: mouth [place] 00 daily. Medical Branch furosemide 2020-0 Yes [id number] 80mg Take 1 U nivers (LASIX) 80 9-15 tablet by ity of mg tablet 00:00: mouth [place] 00 every Medical morning Branch and evening. tamsulosin 2020-0 Yes [id number] .4mg Take 1 U nivers 0.4 mg 24 9-15 capsule by ity of hr capsule 00:00: mouth [place] 00 daily. Medical Branch furosemide 2020-0 Yes [id number] 80mg Take 1 U nivers (LASIX) 80 9-15 tablet by ity of mg tablet 00:00: mouth [place] 00 every Medical morning Branch and evening. tamsulosin 2020-0 Yes [id number] .4mg Take 1 U nivers 0.4 mg 24 9-15 capsule by ity of hr capsule 00:00: mouth [place] 00 daily. Medical Branch Acetaminoph No Notes: Do M emoria en 300 MG / 05-21 not exceed l Codeine 14:43: 4gm/day of [place] dionne Phosphate 00 acetaminop 30 MG Oral hen. (Same Tablet as: [Tylenol Tylenol with with Codeine #3] Codeine # 3) Acetaminoph No Notes: Do M emoria en 300 MG / 05-21 not exceed l Codeine 14:43: 4gm/day of [place] dionne Phosphate 00 acetaminop 30 MG Oral hen. (Same Tablet as: [Tylenol Tylenol with with Codeine #3] [...] Dissolve l 13:33: in 8 oz of [place] 00 water or juice. (Same as: Miralax) Miralax 2020-0 No Notes: Memoria 8-13 Dissolve l 13:33: in 8 oz of [place] 00 water or juice. (Same as: Miralax) calcium 2020-0 Yes [id number] 1334mg Take 2 Un seun acetate 667 6-22 capsules ity of mg capsule 00:00: by mouth 3 [place] 00 (three) Medical times Branch daily with meals. calcium 2020-0 Yes [id number] 1334mg Take 2 Un seun acetate 667 6-22 capsules ity of mg capsule 00:00: by mouth 3 [place] 00 (three) Medical times Branch daily with meals. calcium 2020-0 Yes [id number] 1334mg Take 2 Un [place] acetate 667 6-22 capsules ity of mg capsule 00:00: by mouth 3 [place] 00 (three) Medical times Branch daily with meals. calcium 2020-0 Yes [id number] 1334mg Take 2 Un seun acetate 667 6-22 capsules ity of mg capsule 00:00: by mouth 3 [place] 00 (three) Medical times Branch daily with meals. calcium 2020-0 Yes [id number] 1334mg Take 2 Un [place] acetate 667 6-22 capsules ity of mg capsule 00:00: by mouth 3 [place] 00 (three) Medical times Branch daily with meals. calcium 2020-0 Yes [id number] 1334mg Take 2 Un se[place] acetate 667 6-22 capsules ity of mg capsule 00:00: by mouth 3 [place] 00 (three) Medical times Branch daily with meals. calcium 2020-0 Yes [id number] 1334mg Take 2 Un seun acetate 667 6-22 capsules ity of mg capsule 00:00: by mouth 3 [place] 00 (three) Medical times Branch daily with meals. calcium 2020-0 Yes [id number] 1334mg Take 2 Un seun acetate 667 6-22 capsules ity of mg capsule 00:00: by mouth 3 [place] 00 (three) Medical times Branch daily with meals. calcium 2020-0 Yes [id number] 1334mg Take 2 Un seun acetate 667 6-22 capsules ity of mg capsule 00:00: by mouth 3 [place] 00 (three) Medical times Branch daily with meals. calcium 2020-0 Yes [id number] 1334mg Take 2 Un seun acetate 667 6-22 capsules ity of mg capsule 00:00: by mouth 3 [place] 00 (three) Medical times Branch daily with meals. calcium 2020-0 Yes [id number] 1334mg Take 2 Un seun acetate 667 6-22 capsules ity of mg capsule 00:00: by mouth 3 [place] 00 (three) Medical times Branch daily with meals. calcium 2020-0 Yes [id number] 1334mg Take 2 Un seun acetate 667 [...] tab, Kojo lynn en 325 MG / 615 Route: PO, l Hydrocodone 10:53: Drug Form: [place] Bitartrate 00 TAB, 5 MG Oral Dosing Tablet Weight [[place] 104, kg, 5/325] ONCE, STAT, Start date: 03/23/20 5:53:00 CDT, Stop date: 03/23/20 5:53:00 CDT Acetaminoph 2019-0 No 1 tab, [place]jo lynn en 325 MG / -15 Route: PO, l Hydrocodone 10:53: Drug Form: [place] Bitartrate 00 TAB, 5 MG Oral Dosing Tablet Weight [[place] 104, kg, 5/325] ONCE, STAT, Start date: 03/23/20 5:53:00 CDT, Stop date: 03/23/20 5:53:00 CDT Acetaminoph 2019-0 No Notes: Do M emoria en 325 MG / 6-15 not exceed l Hydrocodone 09:02: 4gm/day of [place] Bitartrate 00 acetaminop 10 MG Oral hen. (Same Tablet as: [place] [[place] 325/10) 10/325] Acetaminoph 0 No Notes: Do M emoria en 325 MG / 6-15 not exceed l Hydrocodone 09:02: 4gm/day of [place] Bitartrate 00 acetaminop 10 MG Oral hen. (Same Tablet as: [place] [[place] 325/10) 10/325] Sodium 2020-0 No 250 mL, Memoria Chloride 6-15 Rate: To l 0.9% 06:23: prime line [place] (titrate) 00 and flush 250 mL remaining blood products., Dosing Weight 104, kg, Route: IV, Total Volume: 250, Priority: Routine, Start Date: 03/23/20 1:23:00 CDT, Duration: 1 day, Stop date: 03/24/20 1:22:00 CDT, Replace Every: 24 hr, 0 Sodium 2020-0 No 250 mL, [facility] Chloride 6-15 Rate: To l 0.9% 06:23: prime line [place] (titrate) 00 and flush 250 mL remaining [...] Refill(s) Tablet [Tylenol with Codeine #3] Dilaudid 2020-0 No Notes: Memoria 4- Same as: l 22:39: Dilaudid [place] 00 Dilaudid 2020-0 No Notes: [facility] 4- Same as: l 22:39: Dilaudid [place] 00 Hydralazine 2020-0 No 50 mg, 1 Me moria Hydrochlori 4-27 tab, l de 50 MG 22:20: Route: PO, Her meeks Oral Tablet 00 Drug form: TAB, ONCE, Dosing Weight 104.545, kg, Start date: 02/03/20 17:20:00 CDT, Stop date: 02/03/20 17:20:00 CDT Hydralazine 2020-0 No 50 mg, 1 Me moria Hydrochlori 4-27 tab, l de 50 MG 22:20: Route: PO, Her meeks Oral Tablet 00 Drug form: TAB, ONCE, Dosing Weight 104.545, kg, Start date: 02/03/20 17:20:00 CDT, Stop date: 02/03/20 17:20:00 CDT Zofran 2020-0 No Notes: [facility]oria 4- (Same as: l 20:19: Zofran) MEDICATION WASTE [...] MG Oral 20 tab, 0 Tablet Refill(s), [[place] [facility]: ] [facility] Acetaminoph Yes 1-2 tab, Me moria en 325 MG / -28 PO, Q4-6H, l Hydrocodone 20:46: PRN Pain, H ermann Bitartrate 00 X 5 day, # 10 MG Oral 20 tab, 0 Tablet Refill(s), [[place] [facility]: ] [facility] vancomycin No 2001 mg: Me moria [...] 99.091, kg, TID, Start date: 11/04/19 13:00:00 [employer]EARCH [employer]GR[employer]ULTURAL ENGINEER, Duration: 30 day, Stop date: 12/04/19 9:00:00 RESEARCH AGRICULTURAL ENGINEER amLODIPine No Notes: Memor ia 11-04 (Same as: l 19:00: Norvasc) lisinopril 2020-0 No Notes: Memor ia 11-04 (Same as: l 19:00: Prinivil, [place] 00 Zestril) vancomycin 2019- No 2001 mg: Me moria 11-04 infuse [...] 99.091, kg, TID, Start date: 11/04/19 13:00:00 RESEARCH AGRICULTURAL ENGINEER, Duration: 30 day, Stop date: 12/04/19 9:00:00 RESEARCH AGRICULTURAL ENGINEER amLODIPine 2019-0 No Notes: Memor ia 11-04 (Same as: l 19:00: Norvasc) lisinopril 0 No Notes: Memor ia 11-04 (Same as: l 19:00: Prinivil, [place] 00 Zestril) Amlodipine 2019-0 Yes 1 cap, PO, M emoria 10 MG / -27 TID, 0 l Benazepril 16:40: Refill(s) He [...] s with feeding tube less than 14 [place] (Dobhoff, J-tube etc) and pediatric and patients. [...] s with feeding tube less than 14 [place] (Dobhoff, J-tube etc) and pediatric and patients. epoetin 2020-0 No Notes: Memoria franca - (Same as: l 15:00: Procrit) [place] 00 epoetin [place] [id number] unit/1 ml VL. For dialysis use only. (Procrit) WASTE: F/P - Red; E -Red MEDICATION WASTE Product Size: 41220 unit Product Wasted: ___ unit epoetin 2020-0 No Notes: Memoria franca 11-04 (Same as: l 15:00: Procrit) [place] 00 epoetin [place] 21151 unit/1 ml VL. For dialysis use only. (Procrit) WASTE: F/P - Red; E -Red MEDICATION WASTE Product Size: 22823 unit Product Wasted: ___ unit Lisinopril 2020-0 No Notes: Memor ia - (Same as: l 14:47: Prinivil, [place] 00 Zestril) Lisinopril 2020-0 No Notes: Memor ia - (Same as: l 14:47: Prinivil, [place] 00 Zestril) Vancomycin 2019-0 No 2000 mg: Me moria - infuse l 14:40: over 2.5 [place] 00 hours For adult patients only: Round to nearest 250 mg per Medical Staff approval MEDICATION WASTE Product Size: 1000 mg Product Wasted: ___ mg Vancomycin 2020-0 No 2000 mg: Me moria 1-27 infuse l 14:40: over 2.5 [place] 00 hours For adult patients only: Round to nearest 250 mg per Medical Staff approval MEDICATION WASTE Product Size: 1000 mg Product Wasted: ___ mg Lasix 2020-0 No Notes: Memoria - (Same as: l 23:00: Lasix) February cause GI upset. Give with food or milk. Lasix 2020-0 No Notes: Memoria - (Same as: l 23:00: Lasix) May [place] 00 cause GI upset. Give with food or [...] - (Same as: l 15:32: K-Dur 20) [place] 00 "Do Not Crush" Give with food and full glass of water For patients unable to swallow tablet, dissolve in one half glass of water. Allow about 2 minutes for the tablets to disintegra te. Stir before giving to prepare slurry and administer . Please exclude Patient s with feeding tube less than 14 [place] (Dobhoff, J-tube etc) and pediatric and patients. Epogen No Notes: Memoria 11-03 (Same as: l 15:32: Procrit) [place] epoetin [place] 92511 unit/1 ml VL. For dialysis use only. (Procrit) WASTE: F/P - Red; E -Red MEDICATION WASTE Product Size: 27328 unit Product Wasted: ___ unit Potassium No [...] s with feeding tube less than 14 [place] (Dobhoff, J-tube etc) and pediatric and patients. Epogen No Notes: Memoria 11-03 (Same as: l 15:32: Procrit) [place] 00 epoetin [place] 01101 unit/1 ml VL. For dialysis use only. (Procrit) WASTE: F/P - Red; E -Red MEDICATION WASTE Product Size: 36785 unit Product Wasted: ___ unit Dilaudid 2019-0 No Notes: Memoria 1-25 Same as: l 18:03: Dilaudid Dilaudid 2019-0 No Notes: Memoria 1-25 Same as: l 18:03: Dilaudid heparin 2019-0 No 10,000 Memoria 1-25 unit, 10 l 02:00: mL, Route: [place] 00 DIALYSIS, Drug form: INJ, ONCALL, Dosing Weight 99.091, kg, Start date: 11/01/19 20:00:00 RESEARCH AGR[employer]ULTURAL ENGINEER, Duration: 1 doses or times, 0 heparin 2019-0 No 10,000 Memoria 1-25 unit, 10 l 02:00: mL, Route: [place] 00 DIALYSIS, Drug form: INJ, ONCALL, Dosing Weight 99.091, kg, Start date: 11/01/19 20:00:00 RESEARCH AGRICULTURAL ENGINEER, Duration: 1 doses or times, 0 [...] 250 mg per Medical Staff approval potassium 2019- No Notes: Memori a chloride 1-24 (Same as: l :51: K-Dur 20) [place] 00 "Do Not Crush" Give with food and full glass of water For patients unable to swallow tablet, dissolve in one half glass of water. Allow about 2 minutes for the tablets to disintegra te. Stir before giving to prepare slurry and administer . Please exclude Patient s with feeding tube less than 14 [place] (Dobhoff, J-tube etc) and pediatric and patients. [...] s with feeding tube less than 14 [place] (Dobhoff, J-tube etc) and pediatric and patients. Dilaudid 2020-0 No Notes: [facility]oria 1-24 Same as: l 18:47: Dilaudid Dilaudid 2020-0 No Notes: [facility]oria 1-24 Same as: l 18:47: Dilaudid Potassium 2020-0 No Notes: Memori a Chloride [...] s with feeding tube less than 14 [place] (Dobhoff, J-tube etc) and pediatric and patients. [...] s with feeding tube less than 14 [place] (Dobhoff, J-tube etc) and pediatric and patients. heparin 2020-0 No 10,000 Memoria 1-24 unit, 10 l 01:00: mL, Route: [place] 00 DIALYSIS, Drug form: INJ, ONCALL, Dosing Weight 99.091, kg, Start date: 10/31/19 19:00:00 RESEARCH AGRICULTURAL ENGINEER, Duration: 1 doses or times, 0 heparin 2020-0 No 10,000 Memoria 1-24 unit, 10 l 01:00: mL, Route: DIALYSIS, Drug form: INJ, ONCALL, Dosing Weight 99.091, kg, Start date: 10/31/19 19:00:00 RESEARCH AGRICULTURAL ENGINEER, Duration: 1 doses or times, 0 Albuterol 2020-0 No Notes: Memori a 0.833 MG/ML 10-31 (Same as: l 15:09: Duoneb) Ipratropium 00 [place] 0.167 MG/ML Inhalant Solution [DuoNeb] Albuterol 2020-0 No Notes: Memori a 0.833 MG/ML 1-23 (Same as: l 15:09: Duoneb) [place] Ipratropium 00 [place] 0.167 MG/ML Inhalant Solution [DuoNeb] Potassium 2020-0 [...] s with feeding tube less than 14 [place] (Dobhoff, J-tube etc) and pediatric and patients. Potassium 2020-0 No Notes: Memori a Chloride 1-23 (Same as: l 11:58: K-Dur 20) [place] 00 "Do Not Crush" Give with food and full glass of water For patients unable to swallow tablet, dissolve in one half glass of water. Allow about 2 minutes for the tablets to disintegra te. Stir before giving to prepare slurry and administer . Please exclude Patient s with feeding tube less than 14 [place] (Dobhoff, J-tube etc) and pediatric and patients. heparin 2020-0 No 10,000 Memoria 1-23 unit, 10 l 05:00: mL, Route: DIALYSIS, Drug form: INJ, ONCALL, Dosing Weight 99.091, kg, Start date: 10/30/19 23:00:00 RESEARCH AGRICULTURAL ENGINEER, Duration: 1 doses or times, 0 heparin 2020-0 No 10,000 Memoria 1-23 unit, 10 l 05:00: mL, Route: [place] 00 DIALYSIS, Drug form: INJ, ONCALL, Dosing Weight 99.091, kg, Start date: 10/30/19 23:00:00 RESEARCH AGRICULTURAL ENGINEER, Duration: 1 doses or times, 0 Potassium 2020-0 No Notes: Memori a Chloride 1-23 (Same as: l 04:05: K-Dur 20) [place] 00 "Do Not Crush" Give with food and full glass of water For patients unable to swallow tablet, dissolve in one half glass of water. Allow about 2 minutes for the tablets to disintegra te. Stir before giving to prepare slurry and administer . Please exclude Patient s with feeding tube less than 14 [place] (Dobhoff, J-tube etc) and pediatric and patients. Potassium 2020-0 No Notes: Memori a Chloride 10-31 (Same as: l 04:05: K-Dur ) "Do Not Crush" Give with food and full glass of water For patients unable to swallow tablet, dissolve in one half glass of water. Allow about 2 minutes for the tablets to disintegra te. Stir before giving to prepare slurry and administer . Please exclude Patient s with feeding tube less than 14 [place] (Dobhoff, J-tube etc) and pediatric and patients. Tylenol 2020-0 No Notes: Do Memor ia - not exceed l 19:42: 4 gm/day. [place] 00 (Same as: Tylenol) Tylenol 2020-0 No Notes: Do Memor ia - not exceed l 19:42: 4 gm/day. [place] 00 (Same as: Tylenol) Roxicodone 2020-0 No Notes: Memor ia - (Same as: l 19:41: Roxicodone ) Roxicodone 2020-0 No Notes: Memor ia - (Same as: l 19:41: Roxicodone ) Acetaminoph 2020-0 No 1 tab, Kojo lynn en 325 MG / 10-30 Route: PO, l Oxycodone 19:20: Drug Form: Jarad rmdionne Hydrochlori 00 TAB, de 5 MG Dosing Oral Tablet Weight [Percocet 99.091, 5/325] kg, Q4H, PRN Pain Score 4-6, Start date: 10/30/19 13:20:00 RESEARCH AGRICULTURAL ENGINEER, Duration: 30 day, Stop date: 11/29/19 13:19:00 RESEARCH AGRICULTURAL ENGINEER Acetaminoph 2020-0 No 1 tab, Kojo lynn en 325 MG / 10-30 Route: PO, l Oxycodone 19:20: Drug Form: Jarad rmdionne Hydrochlori 00 TAB, de 5 MG Dosing Oral Tablet Weight [Percocet 99.091, 5/325] kg, Q4H, PRN Pain Score 4-6, Start date: 10/30/19 13:20:00 RESEARCH AGRICULTURAL ENGINEER, Duration: 30 day, Stop date: 11/29/19 13:19:00 RESEARCH AGRICULTURAL ENGINEER vancomycin 2020-0 No 2000 mg: Me moria + Sodium 1-22 infuse l Chloride 18:00: over 2.5 [place] 0.9% IV 250 00 hours For mL adult patients only: Round to nearest 250 mg per Medical Staff approval MEDICATION WASTE Product Size: 1000 mg Product Wasted: ___ mg vancomycin 2020-0 No 2000 mg: Me moria + Sodium 1-22 infuse l Chloride 18:00: over 2.5 [place] 0.9% IV 250 00 hours For mL adult patients only: Round to nearest 250 mg per Medical Staff approval MEDICATION WASTE Product Size: 1000 mg Product Wasted: ___ mg cefepime 2020-0 No Notes: Memoria 10-30 (Same As: l 16:00: Maxipime) [place] 00 MEDICATION WASTE Product Size: 1000 mg Product Wasted: ___ mg Vancomycin 2020-0 No 2000 mg: Me moria -22 infuse l 16:00: over 2.5 [place] 00 hours For adult patients only: Round to nearest 250 mg per Medical Staff approval MEDICATION WASTE Product Size: 1000 mg Product Wasted: ___ mg cefepime 2020-0 No Notes: Memoria 10-30 (Same As: l 16:00: Maxipime) [place] 00 MEDICATION WASTE Product Size: 1000 mg Product Wasted: ___ mg Vancomycin 2020-0 No 2000 mg: Me moria -22 infuse l 16:00: over 2.5 [place] 00 hours For adult patients only: Round to nearest 250 mg per Medical Staff approval MEDICATION WASTE Product Size: 1000 mg Product Wasted: ___ mg NIFEdipine 2020-0 No Notes: Memor ia 90 mg oral - (Same as: l tablet, 15:00: Adalat [place] extended 00 CC,Procard release ia XL) "Do Not Crush" "Avoid grapefruit and grapefruit juice" Fauzia-Conor 2020-0 No Fauzia-Conor Mem oria oral tablet -22 oral l 15:00: tablet, 1 [place] 00 tab, Route: PO, Daily, 10/30/19 9:00:00 RESEARCH AGRICULTURAL ENGINEER, Duration: 30 day, Stop date: 11/28/19 9:00:00 RESEARCH AGRICULTURAL ENGINEER Nephro-Conor 2019-0 No Notes: Kojo lynn Rx - (Same as: l 15:00: Nephro-Vit [place] 00 e Rx and Diatx) Give with food. NIFEdipine No Notes: Memor ia 90 mg oral 10-30 (Same as: l tablet, 15:00: Adalat [place] extended 00 CC,Procard release ia XL) "Do Not Crush" "Avoid grapefruit and grapefruit juice" Fauzia-Conor No Fauzia-Conor Mem oria oral tablet 10-30 oral l 15:00: tablet, 1 tab, Route: PO, Daily, 10/30/19 9:00:00 RESEARCH AGRICULTURAL ENGINEER, Duration: 30 day, Stop date: 11/28/19 9:00:00 RESEARCH AGRICULTURAL ENGINEER Nephro-Conor No Notes: Kojo lynn Rx - (Same as: l 15:00: Nephro-Vit [place] 00 e Rx and Diatx) Give with food. Epoetin No Notes: Memoria Franca - (Same as: l 14:39: Procrit) epoetin [place] 68897 unit/1 ml VL. For dialysis use only. (Procrit) WASTE: F/P - Red; E -Red MEDICATION WASTE Product Size: 22093 unit Product Wasted: ___ unit Epoetin No Notes: Memoria Franca - (Same as: l 14:39: Procrit) [place] 00 epoetin [place] 97794 unit/1 ml VL. For dialysis use only. (Procrit) WASTE: F/P - Red; E -Red MEDICATION WASTE Product Size: 02110 unit Product Wasted: ___ unit Potassium No Notes: Memori a Chloride - (Same as: l 14:38: K-Dur 20) [place] 00 "Do Not Crush" Give with food and full glass of water For patients unable to swallow tablet, dissolve in one half glass of water. Allow about 2 minutes for the tablets to disintegra te. Stir before giving to prepare slurry and administer . Please exclude Patient s with feeding tube less than 14 [place] (Dobhoff, J-tube etc) and pediatric and patients. Potassium 2019-0 No Notes: Memori a Chloride - (Same as: l 14:38: K-Dur 20) [place] 00 "Do Not Crush" Give with food and full glass of water For patients unable to swallow tablet, dissolve in one half glass of water. Allow about 2 minutes for the tablets to disintegra te. Stir before giving to prepare slurry and administer . Please exclude Patient s with feeding tube less than 14 [place] (Dobhoff, J-tube etc) and pediatric and patients. carvedilol 2019-0 No Notes: Memor ia - Give with l 03:00: food. [place] (Same As: Coreg) tamsulosin 0 No Notes: Memor ia - (Same As: l 03:00: Flomax) [place] "Do Not Crush" carvedilol 2019-0 No Notes: Memor ia - Give with l 03:00: food. [place] (Same As: Coreg) tamsulosin 2019-0 No Notes: Memor ia - (Same As: l 03:00: Flomax) [place] 00 "Do Not Crush" Lactulose 2019-0 No Notes: Memori a 667 MG/ML - (Same l Oral 00:36: as:Chronul [place] Solution 00 ac) Lactulose 2019-0 No Notes: Memori a -22 Lactulose l 00:36: 300ml, [place] 00 Water for Irrigation 700ml - total volume = 1000ml Lactulose 2019-0 No Notes: Memori a 667 MG/ML - (Same l Oral 00:36: as:Chronul [place] Solution 00 ac) Lactulose 2019-0 No Notes: Memori a -22 Lactulose l 00:36: 300ml, [place] 00 Water for Irrigation 700ml - total volume = 1000ml tizanidine 2019-0 No Notes: Memor ia - (Same As: l 22:22: Zanaflex) tizanidine 2019-0 No Notes: Memor ia - (Same As: l 22:22: Zanaflex) Hydralazine 2019-0 [...] PO, l MG Oral 21:57: TID, 0 [place] Capsule 00 Refill(s) calcium 2020-0 Yes 2,001 mg = Kojo lynn acetate 667 1-21 3 cap, PO, l MG Oral 21:57: TID, 0 [place] Capsule 00 Refill(s) Diazepam 2019-0 No Notes: Memoria 1-21 (Same as: l 21:25: Valium) Diazepam 2019-0 No Notes: Memoria 1- (Same as: l 21:25: Valium) Hydralazine 2019-0 No Notes: Kojo lynn 1-21 (Same as: l 18:50: Apresoline [place] ) Push over 5 minutes Hydralazine 2019-0 No Notes: Kojo lynn 1-21 (Same as: l 18:50: Apresoline [place] ) Push over 5 minutes acetaminoph 2019- No Notes: Do M emoria en-codeine - not exceed l #3 18:49: 4gm/day of acetaminop hen. (Same as: Tylenol with Codeine # 3) acetaminoph No Notes: Do M emoria en-codeine -21 not exceed l #3 18:49: 4gm/day of acetaminop hen. (Same as: Tylenol with Codeine # 3) Lasix No Notes: Memoria - (Same as: l 15:00: Lasix) MEDICATION WASTE Product Size: 40 mg Product Wasted: ___ mg Docusate No Notes: Memoria 1- (Same as: l 15:00: Colace) (Do Not Crush) Lasix 0 No Notes: Memoria - (Same as: l 15:00: Lasix) MEDICATION WASTE Product Size: 40 mg Product Wasted: ___ mg Docusate 2019-0 No Notes: Memoria -21 (Same as: l 15:00: Colace) (Do Not [...] s with feeding tube less than 14 [place] (Dobhoff, J-tube etc) and pediatric and patients. Magnesium 2019-0 No Notes: Memori a Sulfate 10-29 WASTE: F/P l 14:55: - Sink; E - Municipal Trash Bin Potassium 2019-0 No [...] s with feeding tube less than 14 [place] (Dobhoff, J-tube etc) and pediatric and patients. Magnesium 2019-0 No Notes: Memori a Sulfate 10-29 WASTE: F/P l 14:55: - Sink; E - [place] Trash Bin Diazepam 2020-0 Yes 10 mg, PO, Mem oria 1-21 PRN as l 08:31: needed for [place] 00 anxiety, 0 Refill(s) Diazepam 2020-0 Yes 10 mg, PO, Mem oria 1-21 PRN as l 08:31: needed for [place] 00 anxiety, 0 Refill(s) zolpidem 10 2020-0 Yes 10 mg = 1 M emoria mg oral 1-21 tab, PO, l tablet 08:27: Bedtime, [place] 00 PRN as needed for insomnia, 0 Refill(s) zolpidem 10 2020-0 Yes 10 mg = 1 M emoria mg oral 1-21 tab, PO, l tablet 08:27: Bedtime, PRN [...] Blood Glucose Results, Start date: 10/29/19 0:50:00 RESEARCH AGRICULTURAL ENGINEER, Duration: 30 day, Stop date: 11/28/19 0:49:00 RESEARCH AGRICULTURAL ENGINEER, 0 Glucagon No 1 mg, Memoria 10-29 Route: IM, l 06:50: Drug form: [place] 00 PDR/INJ, PRN, Dosing Weight 90.909, kg, PRN Blood Glucose Results, Start date: 10/29/19 0:50:00 RESEARCH AGRICULTURAL ENGINEER, Duration: 30 day, Stop date: 11/28/19 0:49:00 RESEARCH AGRICULTURAL ENGINEER, 0 Ondansetron 2019-0 No Notes: Kojo lynn 10-29 (Same as: l 06:50: Zofran) MEDICATION WASTE Product Size: 4 mg Product Wasted: ___ mg Melatonin 2019-0 No Notes: Memori a 10-29 (Same as: l 06:50: Melatonin) Acetaminoph 2019-0 No Notes: Do M emoria en 10-29 not exceed l 06:50: 4 gm/day. (Same as: Tylenol) Dextrose 2019-0 No 12.5 gm, Memor ia 50% Syringe 10-29 25 mL, l (D50W) 06:50: Route: [place] 00 IVP, Drug Form: INJ, Dosing Weight 90.909, kg, PRN, PRN Blood Glucose Results, Start date: 10/29/19 0:50:00 RESEARCH AGRICULTURAL ENGINEER, Duration: 30 day, Stop date: 11/28/19 0:49:00 RESEARCH AGRICULTURAL ENGINEER, 0 Glucagon No 1 mg, Memoria 10-29 Route: IM, l 06:50: Drug form: [place] 00 PDR/INJ, PRN, Dosing Weight 90.909, kg, PRN Blood Glucose Results, Start date: 10/29/19 0:50:00 RESEARCH AGRICULTURAL ENGINEER, Duration: 30 day, Stop date: 11/28/19 0:49:00 RESEARCH AGRICULTURAL ENGINEER, 0 Ondansetron No Notes: Kojo lynn [...] a 0.833 MG/ML 10-29 (Same as: l 03:22: Duoneb) [place] Ipratropium 00 [place] 0.167 MG/ML Inhalant Solution [DuoNeb] Albuterol No Notes: SEE Me moria 0.83 MG/ML 10-29 RT l Inhalant 03:22: DOCUMENTAT Her meeks Solution 00 ION (Same as: Proventil) Albuterol No Notes: Memori a 0.833 MG/ML 10-29 (Same as: l / 03:22: Duoneb) [place] Ipratropium 00 [place] 0.167 MG/ML Inhalant Solution [DuoNeb] Albuterol No Notes: SEE Me moria 0.83 MG/ML 1-21 RT l Inhalant 03:22: DOCUMENTAT Her meeks Solution 00 ION (Same as: Proventil) carvedilol 2018-10 Yes 12.5 mg = Me moria 12.5 mg 1-12 1 tab, PO, l oral tablet 17:56: Q12H, # 60 [place] 00 tab, 0 Refill(s), Pharmacy: [facility] Furosemide 2018-10 Yes 80 mg = 2 Me moria 40 MG Oral 1-12 tab, PO, l Tablet 17:56: TID, # 180 [place] nn 00 tab, 0 Refill(s), Pharmacy: [facility] Hydralazine 2018-10 Yes 50 mg = 2 M emoria Hydrochlori 1-12 tab, PO, l de 25 MG 17:56: Q8H, # 180 Her meeks Oral Tablet 00 tab, 0 Refill(s), Pharmacy: [facility] lisinopril 2018-10 Yes 40 mg = 1 Me moria 40 mg oral 1-12 tab, PO, l tablet 17:56: Daily, # [place] 00 30 tab, 0 Refill(s), Pharmacy: [facility] NIFEdipine 2018-10 Yes 90 mg = 1 Me moria 90 mg oral 1-12 tab, PO, l tablet, 17:56: Daily, # Rafael n extended 00 30 tab, 0 release Refill(s), Pharmacy: [facility] carvedilol 2018-10 Yes 12.5 mg = Me moria 12.5 mg 1-12 1 tab, PO, l oral tablet 17:56: Q12H, # 60 [place] 00 tab, 0 Refill(s), Pharmacy: [facility] Furosemide 2018-10 Yes 80 mg = 2 Me moria 40 MG Oral 1-12 tab, PO, l Tablet 17:56: TID, # 180 [place] nn 00 tab, 0 Refill(s), Pharmacy: [facility] Hydralazine 2018-10 Yes 50 mg = 2 M emoria Hydrochlori 1-12 tab, PO, l de 25 MG 17:56: Q8H, # 180 Her meeks Oral Tablet 00 tab, 0 Refill(s), Pharmacy: [facility] lisinopril 2018-10 Yes 40 mg = 1 Me moria 40 mg oral 1-12 tab, PO, l tablet 17:56: Daily, # [place] 00 30 tab, 0 Refill(s), Pharmacy: [facility] [place] NIFEdipine 2018-10 Yes 90 mg = 1 Me moria 90 mg oral 1-12 tab, PO, l tablet, 17:56: Daily, # Rafael n extended 00 30 tab, 0 release Refill(s), Pharmacy: [facility] [place] carvedilol 2018-10 No Notes: Memor ia 1-12 [...] Weight 96.364, kg, Start date: 08/19/19 9:00:00 RESEARCH AGRICULTURAL ENGINEER, Duration: 30 day, Stop date: 09/17/19 9:00:00 RESEARCH AGRICULTURAL ENGINEER, 0 lisinopril 2018-10 No Notes: Memor ia 1-11 (Same as: l 15:00: Prinivil, [place] 00 Zestril) NIFEdipine 2018-10 No 90 mg, Memor ia 60 mg oral 10-19 Route: PO, l tablet, 15:00: Drug form: Herm dionne extended 00 ERTAB, release Daily, Dosing Weight 96.364, kg, Start date: 08/19/19 9:00:00 RESEARCH AGRICULTURAL ENGINEER, Duration: 30 day, Stop date: 09/17/19 9:00:00 RESEARCH AGRICULTURAL ENGINEER, 0 lisinopril 2018-10 No Notes: Memor ia 1-11 (Same as: l 15:00: Prinivil, [place] 00 Zestril) carvedilol 2018-10 No Notes: Memor ia 1-11 Give with l 03:00: food. [place] 00 (Same As: Coreg) carvedilol 2018-10 No Notes: Memor ia 1-11 Give with l 03:00: food. (Same As: Coreg) Clonidine 2018-10 No Notes: Memori a 1-11 (Same As: l 00:45: Catapres) [place] 00 Clonidine 2018-10 No Notes: Memori a 1-11 (Same As: l 00:45: Catapres) [place] Clonidine 2018-10 No Notes: Memori a Hydrochlori [...] ia 1-10 (Same as: l 20:11: Prinivil, Zestril) Lisinopril 2018-10 No Notes: Memor ia 1-10 (Same as: l 20:11: Prinivil, 00 Zestril) NIFEdipine 2018-10 No Notes: Memor [...] kg, Priority: NOW, Start date: 08/18/19 9:29:00 RESEARCH AGRICULTURAL ENGINEER, Duration: 1 doses or times, 0 heparin 2018-10 No 10,000 Memoria 1-10 unit/mL, l 15:29: Route: [place] 00 DIALYSIS, Drug form: INJ, ONCALL, Dosing Weight 96.364, kg, Priority: NOW, Start date: 08/18/19 9:29:00 RESEARCH AGRICULTURAL ENGINEER, Duration: 1 doses or times, 0 heparin 2018- No 10,000 Memoria 1-09 unit, 10 l 19:00: mL, Route: [place] 00 DIALYSIS, Drug form: INJ, ONCALL, Dosing Weight 96.364, kg, Start date: 08/17/19 13:00:00 RESEARCH AGRICULTURAL ENGINEER, Duration: 1 doses or times, 0 heparin 2018- No 10,000 Memoria 1-09 unit, 10 l 19:00: mL, Route: [place] DIALYSIS, Drug form: INJ, ONCALL, Dosing Weight 96.364, kg, Start date: 08/17/19 13:00:00 RESEARCH AGRICULTURAL ENGINEER, Duration: 1 doses or times, 0 Sodium 2018- No 1,000 mL, Memori a Chloride 1-09 1,000 l 0.9% 18:06: ml/hr, [place] (Bolus) IV 00 Infuse Over: 1 hr, Route: IV, 1,000, Drug form: INJ, PRN, Priority: STAT, Dosing Weight 96.364 kg, Start date: 08/17/19 12:06:00 RESEARCH AGRICULTURAL ENGINEER, Duration: 30 day, Stop date: 09/16/19 12:05:00 RESEARCH AGRICULTURAL ENGINEER, PRN Dialysis, 0 Sodium 2018- No 1,000 mL, Memori a Chloride 1-09 1,000 l 0.9% 18:06: ml/hr, [place] (Bolus) IV 00 Infuse Over: 1 hr, Route: IV, 1,000, Drug form: INJ, PRN, Priority: STAT, Dosing Weight 96.364 kg, Start date: 08/17/19 12:06:00 RESEARCH AGRICULTURAL ENGINEER, Duration: 30 day, Stop date: 09/16/19 12:05:00 RESEARCH AGRICULTURAL ENGINEER, PRN Dialysis, 0 Potassium 2018- No Notes: Memori a Chloride 1-08 (Same [...] s with feeding tube less than 14 [place] (Dobhoff, J-tube etc) and pediatric and patients. Potassium 2018-10 No Notes: Memori a Chloride -08 (Same as: l 15:18: K-Dur 20) "Do Not Crush" Give with food and full glass of water For patients unable to swallow tablet, dissolve in one half glass of water. Allow about 2 minutes for the tablets to disintegra te. Stir before giving to prepare slurry and administer . Please exclude Patient s with feeding tube less than 14 [place] (Dobhoff, J-tube etc) and pediatric and patients. Seroquel 2018-10 No Notes: Memoria 1-08 (Same as: l 02:36: SEROquel) Seroquel 2018-10 No Notes: Memoria -08 (Same as: l 02:36: SEROquel) [place] 00 Ativan 2018-10 No Notes: Memoria 1-07 (Same as: l 21:45: Ativan) Ativan 2018-10 No Notes: Memoria 1-07 (Same as: l 21:45: Ativan) [place] 00 Ativan 2018-10 No Notes: Memoria 1-07 [...] 00 lisinopril 2018-10 No Notes: Memor ia -07 (Same as: l 15:00: Prinivil, [place] Zestril) multivitami 2018-10 No Notes: Kojo lynn n 10-15 (Same l 15:00: as:One Tab [place] Daily, Tab-A-Conor + Beta [...] Memoria 1-07 (Same as: l 10:25: Haldol) [place] 00 Haldol 2018-10 No Notes: Memoria 1-07 (Same as: l 10:25: Haldol) [place] 00 heparin 2018-10 No Notes: Memoria 1-07 porcine l 06:00: heparin [place] 00 heparin 2018-10 No Notes: Memoria 1 porcine l 06:00: heparin tamsulosin 2018-10 No Notes: Memor ia -07 (Same As: l 03:00: Flomax) [place] 00 "Do Not Crush" tamsulosin 2018-10 No Notes: Memor ia -07 (Same As: l 03:00: Flomax) [place] 00 "Do Not Crush" Amlodipine 2018-10 No 1 cap, Memor ia 10 MG / 10-14 Route: PO, l Benazepril 23:00: Drug Form: H ermann hydrochlori 00 CAP, de 20 MG Dosing Oral Weight Capsule 100.17, kg, TID, Start date: 08/14/19 17:00:00 RESEARCH AGRICULTURAL ENGINEER, Duration: 30 day, Stop date: 09/13/19 13:00:00 RESEARCH AGRICULTURAL ENGINEER carvedilol 2018-10 No Notes: Memor ia 1-06 Give with l 23:00: food. [place] 00 (Same As: Coreg) Furosemide 2018-10 No Notes: Memor ia 1-06 (Same as: l 23:00: Lasix) May [place] 00 cause GI upset. Give with food or [...] 100.17, kg, TID, Start date: 08/14/19 17:00:00 RESEARCH AGRICULTURAL ENGINEER, Duration: 30 day, Stop date: 09/13/19 13:00:00 RESEARCH AGRICULTURAL ENGINEER carvedilol 2018-10 No Notes: Memor ia 1-06 Give with l 23:00: food. [place] 00 (Same As: Coreg) Furosemide 2018-10 No Notes: Memor ia 1-06 (Same as: l 23:00: Lasix) May [place] 00 cause GI upset. Give with food or [...] l tablet, 22:45: Adalat CC, Herm dionne 00 Procardia release XL) Give on empty stomach. Take 1 hour before or 2 hours after meal; "Avoid grapefruit and grapefruit juice". Do not crush Hydralazine 2018-10 No Notes: Kojo lynn 10-14 (Same as: l 21:58: Apresoline ) Push over 5 minutes Hydralazine 2018-10 No Notes: Kojo lynn 10-14 [...] Blood Glucose Results, Start date: 08/14/19 15:47:00 RESEARCH AGRICULTURAL ENGINEER, Duration: 30 day, Stop date: 09/13/19 15:46:00 RESEARCH AGRICULTURAL ENGINEER, 0 Glucagon 2018-10 No 1 mg, Memoria 10-14 Route: IM, l 21:47: Drug form: PDR/INJ, PRN, Dosing Weight 100.17, kg, PRN Blood Glucose Results, Start date: 08/14/19 15:47:00 RESEARCH AGRICULTURAL ENGINEER, Duration: 30 day, Stop date: 09/13/19 15:46:00 RESEARCH AGRICULTURAL ENGINEER, 0 Ondansetron 2018-10 No Notes: Kojo lynn 10-14 (Same as: l 21:47: Zofran) MEDICATION WASTE Product Size: 4 mg Product Wasted: ___ mg Acetaminoph 2018-10 No Notes: Do M emoria en 10-14 not exceed l 21:47: 4 gm/day. (Same as: Tylenol) Dextrose 2018-10 No 12.5 gm, Memor ia 50% Syringe 10-14 25 mL, l 21:47: Route: [place] 00 IVP, Drug Form: INJ, Dosing Weight 100.17, kg, PRN, PRN Blood Glucose Results, Start date: 08/14/19 15:47:00 RESEARCH AGRICULTURAL ENGINEER, Duration: 30 day, Stop date: 09/13/19 15:46:00 RESEARCH AGRICULTURAL ENGINEER, 0 Glucagon 2018-10 No 1 mg, Memoria 10-14 Route: IM, l 21:47: Drug form: PDR/INJ, PRN, Dosing Weight 100.17, kg, PRN Blood Glucose Results, Start date: 08/14/19 15:47:00 RESEARCH AGRICULTURAL ENGINEER, Duration: 30 day, Stop date: 09/13/19 15:46:00 RESEARCH AGRICULTURAL ENGINEER, 0 Ondansetron 2018-10 No Notes: Kojo [...] l oral tablet 20:48: BID, # 180 tab, 0 Refill(s) Hydroxyzine 2018-10 Yes 25 mg = 1 M emoria Hydrochlori 06 tab, PO, l de 25 MG 20:48: TID, 0 [place] Oral Tablet 00 Refill(s) furosemide 2018-10 No 80 mg = 1 Me moria 80 mg oral 10-14 tab, PO, l tablet 20:48: TID, 0 [place] 00 Refill(s) acetaminoph 2018-10 Yes 1 tab, PO, Memoria en-codeine 06 Q6H, PRN l #3 20:48: Pain Score [place] 00 4-6, 0 Refill(s) Amlodipine 2018-10 No 1 cap, PO, M emoria 10 MG / 06 TID, 0 l Benazepril 20:48: Refill(s) He rmann hydrochlori 00 de 20 MG Oral Capsule carvedilol 2018-10 No 6.25 mg = Me moria 6.25 mg 10-14 1 tab, PO, l oral tablet 20:48: BID, # 180 [place] 00 tab, 0 Refill(s) Hydroxyzine 2018-10 Yes [...] tab, PO, l tablet 20:19: Daily, # [place] 00 30 tab, 0 Refill(s), Pharmacy: [facility][id number] doxycycline Yes 100 mg = 1 Memoria hyclate 100 7-01 cap, PO, l MG Oral 20:19: Q12H, X 5 [place] nn Capsule 00 day, # 10 cap, 0 Refill(s), Pharmacy: [facility] #[id number] lisinopril Yes 20 mg = 1 Me moria 20 mg oral 7-01 tab, PO, l tablet 20:19: Daily, # [place] 00 30 tab, 0 Refill(s), Pharmacy: [facility] #[id number] Miralax No Notes: Memoria 7-01 Dissolve l 14:36: in 8 oz of [place] 00 water or juice. (Same as: Miralax) Miralax 2018- No Notes: Memoria 7-01 Dissolve l 14:36: in 8 oz of [place] 00 water or juice. (Same as: Miralax) tamsulosin No Notes: Memor ia 6-30 (Same As: l 02:00: Flomax) [place] "Do Not Crush" atorvastati No Notes: Kojo lynn n 6-30 (Same as: l 02:00: Lipitor) [place] tamsulosin No Notes: Memor ia 6-30 (Same As: l 02:00: Flomax) [place] "Do Not Crush" atorvastati No Notes: Kojo lynn n 6-30 (Same as: l 02:00: Lipitor) [place] Zithromax + No 500 mg, Mem oria Sodium 04-06 Route: l Chloride 22:00: IVPB, [place] 0.9% IV 250 00 [id number], mL Dosing Weight 102.273, kg, Start date: [...] + No 500 mg, Mem oria Sodium 629 Route: l Chloride 22:00: IVPB, [place] 0.9% IV 250 00 [id number], mL Dosing Weight 102.273, kg, Start date: 04/06/19 17:00:00 CDT, Duration: 7 day, Stop date: 04/12/19 17:00:00 CDT, ABX Indication : Pneumonia, 0 Hydralazine 2018-0 No Notes: Kojo lynn 6-29 (Same as: l 22:00: Apresoline [place] 00 ) May interfere w/enteral feedings Take With Food Lasix No Notes: Memoria 6-29 (Same as: l 22:00: Lasix) May [place] 00 cause GI upset. Give with food or milk. [id number] No Notes: Kojo lynn + sterile 6-29 Give IV l water 10 mL 21:00: push Arfael n 00 slowly over 5 minutes Give [...] (Same as: l oral 19:00: Adalat CC, [place] tablet, 00 Procardia extended XL) Give release on empty stomach. Take 1 hour before or 2 hours after meal; "Avoid grapefruit and grapefruit juice". Do not crush Alprazolam No Notes: Memor ia 2 MG Oral 6-29 With food l Tablet 18:22: or milk [place] [Xanax] 00 (Same as: Xanax) Alprazolam No Notes: Memor ia 2 MG Oral 6-29 With food l Tablet 18:22: or milk [place] [Xanax] 00 (Same as: Xanax) Hydralazine No Notes: Kojo lynn 6-29 (Same as: l 18:21: Apresoline [place] 00 ) Push over 5 minutes Hydralazine No Notes: Kojo lynn 6-29 (Same as: l 18:21: Apresoline [place] 00 ) Push over 5 minutes benazepril [...] ia 6-29 (Same as: l 08:57: Prinivil, [place] Zestril) lisinopril No Notes: Memor ia 6-29 (Same as: l 08:57: Prinivil, [place] Zestril) Amlodipine No Notes: Memor ia 6-29 [...] ia 6-29 Give with l 04:30: food. [place] 00 (Same As: Coreg) Hydralazine 2018- No Notes: Kojo lynn 6-29 (Same as: l 04:30: Apresoline [place] 00 ) May interfere w/enteral feedings Take With Food height No height Memoria weight 6-29 weight l allergies 04:00: allergies, [place] 00 Rn pls complete HWA for electronic court recorder, Drug form: MISC, Route: MISC, ONCALL, 04/05/19 23:00:00 CDT, Duration: 30 day, Stop date: 05/05/19 22:59:00 CDT, 0 height 0 No height Memoria weight 6-29 weight l allergies 04:00: allergies, [place] 00 Rn pls complete HWA for electronic court recorder, Drug form: MISC, Route: MISC, ONCALL, 04/05/19 23:00:00 CDT, Duration: 30 day, Stop date: 05/05/19 22:59:00 CDT, 0 Aspirin 325 2018-0 No Notes: (Do Memoria MG Enteric 6-29 Not Crush) l Coated 03:00: Do not [place] Tablet 00 crush or chew. Zithromax 0 No 500 mg, Memor ia 6-29 Route: l 03:00: IVPB, [place] 00 [id number], Dosing Weight 102.273, kg, Start date: 04/05/19 22:00:00 CDT, Duration: 7 day, Stop date: 04/11/19 22:00:00 CDT, ABX Indication : Pneumonia Ceftriaxone 0 No 1 gm, Memor ia 6-29 Route: l 03:00: IVPB, [place] 00 [id number], Dosing Weight 102.273, kg, Start date: 04/05/19 22:00:00 CDT, Duration: 7 day, Stop date: 04/11/19 22:00:00 CDT, ABX Indication : Pneumonia Aspirin 325 2019-0 No Notes: (Do Memoria MG Enteric 6-29 Not Crush) l Coated 03:00: Do not [place] Tablet 00 crush or chew. Zithromax 2019-0 No 500 mg, Memor ia 6-29 Route: l 03:00: IVPB, [place] 00 [id number], Dosing Weight 102.273, kg, Start date: 04/05/19 22:00:00 CDT, Duration: 7 day, Stop date: 04/11/19 22:00:00 CDT, ABX Indication : Pneumonia Ceftriaxone 2019-0 No 1 gm, Memor ia 04-06 Route: l 03:00: IVPB, [id number], Dosing Weight 102.273, kg, Start date: 04/05/19 22:00:00 CDT, Duration: 7 day, Stop date: 04/11/19 22:00:00 CDT, ABX Indication : Pneumonia Glucagon 2019-0 No 1 mg, Memoria 04-06 Route: IM, l 02:03: Drug form: [place] 00 PDR/INJ, PRN, Dosing Weight 102.273, kg, PRN Blood Glucose Results, Start date: 04/05/19 21:03:00 CDT, Duration: 30 day, Stop date: 05/05/19 21:02:00 CDT, 0 Bisacodyl 2018-0 No Notes: Memori a -29 (Same As: l 02:03: Dulcolax, [place]-Lax) Ondansetron 0 No Notes: Kojo lynn - (Same as: l 02:03: Zofran) MEDICATION WASTE Product Size: 4 mg Product Wasted: ___ mg Melatonin 2018- No Notes: Memori a 6-29 (Same as: l 02:03: Melatonin) Acetaminoph No Notes: Do M emoria en 04-06 not exceed l 02:03: 4 gm/day. (Same as: Tylenol) Dextrose 2019-0 No 25 gm, 50 Kojo lynn 50% Syringe 6-29 mL, Route: l 02:03: IVP, Drug Form: INJ, Dosing Weight 102.273, kg, PRN, PRN Blood Glucose Results, Start date: 04/05/19 21:03:00 CDT, Duration: 30 day, Stop date: 05/05/19 21:02:00 CDT, 0 Glucagon 2019-0 No 1 mg, Memoria 6 Route: IM, l 02:03: Drug form: [place] [...] 6-29 not exceed l 02:02: 4 gm/day. (Same as: Tylenol) Hydromorpho No Notes: Kojo lynn ne -29 Same as: l 01:54: Dilaudid Tramadol No [...] 0-16 unit, 10 l 15:21: mL, Route: [place] 00 DIALYSIS, Drug form: INJ, ONCALL, Dosing [...] 0-15 unit, 10 l 13:00: mL, Route: [place] 00 DIALYSIS, Drug form: INJ, ONCALL, Dosing Weight 102.273, kg, Start date: 07/23/18 8:00:00 CDT, Duration: 1 doses or times Sodium 2017- No 2,000 mL, Memori a [...] Duration: 30 day, Stop date: 08/20/18 21:00:00 RESEARCH AGRICULTURAL ENGINEER tamsulosin 2017-10 No Notes: Memor ia 0-15 (Same As: l 02:00: Flomax) "Do Not Crush" zolpidem 2017-10 No 10 mg, Memoria 0-15 Route: PO, l 02:00: Drug form: [place] 00 TAB, Bedtime, Dosing Weight 102.273, kg, Start date: 07/22/18 21:00:00 CDT, Duration: 30 day, Stop date: 08/20/18 21:00:00 RESEARCH AGRICULTURAL ENGINEER tamsulosin 2017-10 No Notes: Memor ia [...] n 0-14 (Same l 14:00: as:One Tab [place] 00 Daily, Tab-A-Conor + Beta Carotene) Give with food. Hydralazine 2017-10 No Notes: Kojo lynn Hydrochlori 0-14 (Same as: l de 50 MG 14:00: Apresoline Her meeks Oral Tablet 00 ) May interfere w/enteral feedings Take With Food Lasix 2017-10 No Notes: Memoria 0-14 (Same as: l 14:00: Lasix) May [place] 00 cause GI upset. Give with food or [...] Memoria 0-14 (Same as: l 14:00: Colace) [place] 00 (Do Not Crush) NIFEdipine 2017-10 No [...] Memoria 0-14 (Same as: l 14:00: Lasix) May [place] 00 cause GI upset. Give with food or milk. carvedilol 2017-10 No Notes: Memor ia 0-14 Give with l 14:00: food. [place] 00 (Same As: Coreg) calcium 2017-10 No Notes: Memoria acetate 667 0-14 Same as l MG Oral 14:00: Phoslo Gel Herm dionne Capsule 00 Cap Amlodipine 2017-10 No Notes: Memor ia 0-14 (Same as: l 14:00: Norvasc) [place] 00 Docusate 2017-10 No Notes: Memoria 0-14 (Same as: l 14:00: Colace) [place] 00 (Do Not Crush) carvedilol 2017-10 Yes 37.5 mg = Me moria 12.5 mg 0-14 3 tab, PO, l oral tablet 11:45: BID, 0 Herm dionne 00 Refill(s) calcium 2017-10 Yes See Memoria acetate 667 0-14 Instructio l MG Oral 11:45: ns, 0 [place] Capsule 00 Refill(s) Hydralazine 2017-10 Yes 50 [...] Memoria 0-14 Route: l 07:16: IVP, ONCE, [place] 00 Dosing Weight 96.7, kg, Priority: STAT, Start date: 07/22/18 2:16:00 CDT, Stop date: 07/22/18 2:16:00 CDT Dilaudid 2017-10 No 1 mg, Memoria 0-14 Route: l 07:16: IVP, ONCE, [place] 00 Dosing Weight 96.7, kg, Priority: STAT, [...] Memoria 0-14 (Same as: l 05:43: Osmitrol) [place] 00 Infuse through 5 micron or smaller [...] Duration: 30 day, Stop date: 08/21/18 0:42:00 RESEARCH AGRICULTURAL ENGINEER, 2.16, m2 Mannitol 2017-10 No Notes: Memoria 0-14 (Same as: l 05:43: Osmitrol) [place] 00 Infuse through 5 micron or smaller [...] Duration: 30 day, Stop date: 08/21/18 0:42:00 RESEARCH AGRICULTURAL 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 [place] 00 (Same as: Tylenol) Morphine 2018 No Notes: Memoria 0-14 Preservati l 05:22: ve free. [place] 00 (Same as: Morphine Sulfate-PF ) Ondansetron 2017-10 No Notes: Kojo lynn 0-14 (Same as: l 05:22: Zofran) [place] 00 MEDICATION WASTE Product Size: 4 mg Product Wasted: ___ mg Acetaminoph 2018 No Notes: Do M emoria en 0-14 not exceed l 05:22: 4 gm/day. [place] 00 (Same as: Tylenol) Morphine 2017-10 No Notes: Memoria 0-14 Preservati l 05:22: ve free. [place] 00 (Same as: Morphine Sulfate-PF ) Ondansetron 2017-10 No Notes: Kojo lynn 0-14 (Same as: l 05:22: Zofran) [place] 00 MEDICATION WASTE Product Size: 4 mg Product Wasted: ___ mg Dilaudid 2017-10 No Notes: Memoria 0-14 Same as: l 05:07: Dilaudid [place] 00 Dilaudid 2017-10 No Notes: Memoria 0-14 Same as: l 05:07: Dilaudid [place] 00 Zofran 2017-10 No Notes: Memoria 0-14 (Same as: l 04:47: Zofran) [place] 00 MEDICATION WASTE Product Size: 4 mg Product Wasted: ___ mg Zofran 2017-10 No Notes: Memoria 0-14 (Same as: l 04:47: Zofran) [place] 00 MEDICATION WASTE Product Size: 4 mg Product Wasted: ___ mg Dilaudid 2018 No Notes: Memoria 0-14 Same as: l 04:46: Dilaudid [place] 00 Dilaudid 2017-10 No Notes: Memoria 0-14 Same as: l 04:46: Dilaudid [place] Hydromorpho 2017-10 No Notes: Kojo lynn ne 0-14 Same as: l 04:13: Dilaudid [place] Hydromorpho 2017-10 No Notes: Kojo lynn ne 0-14 Same as: l 04:13: Dilaudid [place] 00 Saline 2017-10 No Notes: Memoria Flush [...] Memor ia 0-12 (sodium l 23:39: polystyren [place] 00 e sulfonate 15 gm/60 ml CANDACE) Shake well before use. (Same as: Kayexalate , SPS) Kayexalate 2017-10 No Notes: Memor ia 0-12 (sodium l 23:39: polystyren [place] 00 e sulfonate 15 gm/60 ml CANDACE) [...] tab, PO, l Tablet 16:49: PRN, 0 [place] 00 Refill(s) amLODIPine Yes 10 mg = 1 Me moria 10 mg oral 8-14 tab, PO, l tablet 16:49: Daily, 0 [place] 00 Refill(s) tamsulosin No Notes: Memor ia 04-16 (Same As: l 02:00: Flomax) [place] 00 "Do Not Crush" tamsulosin No Notes: Memor ia 04-16 (Same As: l 02:00: Flomax) [place] 00 "Do Not Crush" Hydralazine Yes 50 [...] l oral tablet 20:33: Q12H, # 60 [place] 00 tab, 0 Refill(s) Hydralazine 2018-0 Yes 50 mg = 1 M emoria Hydrochlori 7-08 tab, PO, l de 50 MG 20:33: TID, # 90 Herm dionne Oral Tablet 00 tab, 0 Refill(s) NIFEdipine 2018- Yes 60 mg = 1 Me moria 60 mg oral 7-08 tab, PO, l tablet, 20:33: Daily, # Rafael n extended 00 30 tab, 0 release Refill(s) carvedilol 2018-0 Yes 3.125 mg = M emoria 3.125 mg 7-08 1 tab, PO, l oral tablet 20:33: Q12H, # 60 [place] 00 tab, 0 Refill(s) Potassium No Notes: Memori a Chloride - (Same as: l 20:22: K-Dur 20) [place] 00 "Do Not Crush" For patients unable to swallow tablet, dissolve in one half glass of water. Allow about 2 minutes for the tablets to disintegra te. Stir before giving to prepare slurry and administer . Please exclude Patient s with feeding tube less than 14 [place] (Dobhoff, J-tube etc) and pediatric and patients. With food and full glass of water Potassium 2017- No Notes: Memori a Chloride -08 (Same as: l 20:22: K-Dur 20) [place] 00 "Do Not Crush" For patients unable to swallow tablet, dissolve in one half glass of water. Allow about 2 minutes for the tablets to disintegra te. Stir before giving to prepare slurry and administer . Please exclude Patient s with feeding tube less than 14 [place] (Dobhoff, J-tube etc) and pediatric and patients. With food and full glass of water Hydralazine 0 No Notes: Kojo lynn Hydrochlori 04-15 (Same as: l de 25 MG 14:00: Apresoline Her meeks Oral Tablet 00 ) May interfere w/enteral feedings Take With Food. Lasix 2018-0 No Notes: Memoria 7-08 (Same as: l 14:00: Lasix) May [place] 00 cause GI upset. Give with food or milk. Acetaminoph No 1 tab, Kojo lynn en 325 MG / 708 Route: PO, l Oxycodone 14:00: Drug Form: [...] Memoria 7-08 (Same as: l 14:00: Lasix) February [place] 00 cause GI upset. Give with food or milk. Acetaminoph No 1 tab, Kojo lynn en 325 MG / 708 Route: PO, l Oxycodone 14:00: Drug Form: Jarad rider Hydrochlori 00 TAB, de 5 MG Dosing Oral Tablet Weight [Percocet 74.091, 5/325] kg, BID, Start date: 04/15/18 9:00:00 CDT, Duration: 30 day, Stop date: 05/14/18 17:00:00 CDT carvedilol 0 No Notes: Memor ia 7-08 Give with l 14:00: food. [place] (Same As: Coreg) calcium No Notes: Memoria acetate 667 7-08 Same as l MG Oral 14:00: Phoslo Gel Herm dionne Capsule 00 Cap Amlodipine No Notes: Memor ia -08 (Same as: l 14:00: Norvasc) Morphine 2017-0 No 2 mg, 1 Memori [...] Memoria 7-08 (Same As: l 08:47: Ambien) Ambien No Notes: Memoria 7-08 (Same As: l 08:47: Ambien) Hydroxyzine 2017-0 Yes 25 mg = 1 M [...] day, Stop date: 05/15/18 2:14:00 CDT Insulin 2017-0 No Notes: Memoria Lispro 04-15 (Same as: l 07:15: Humalog ) [place] 00 Roll in palms of hands gently; Do not shake `vigorousl y. "Single Patient Use Only " WASTE: F/P - Black; E - [employer] Trash Bin Stable for 28 days at [...] 04-15 Route: IM, l 07:15: Drug form: [place] 00 PDR/INJ, PRN, Dosing Weight 74.091, kg, PRN Blood Glucose Results, Start date: 04/15/18 2:15:00 CDT, Duration: 30 day, Stop date: 05/15/18 2:14:00 CDT Ergocalcife 2018-0 No 50,000 Kojo lynn rol [id number] 04-15 IntlUnit, l UNT Oral 07:00: 1 cap, [place] Capsule 00 Route: PO, Drug form: CAP, qWeek, Dosing Weight 74.091, kg, Start date: 04/15/18 2:00:00 CDT, Duration: 30 day, Stop date: 05/13/18 9:00:00 CDT Ergocalcife 2017-0 No 50,000 Kojo lynn rol [id number] 7-08 IntlUnit, l UNT Oral 07:00: 1 cap, [place] Capsule 00 Route: PO, Drug form: CAP, qWeek, Dosing Weight 74.091, kg, Start date: 04/15/18 2:00:00 CDT, Duration: 30 day, Stop date: 05/13/18 9:00:00 CDT Alprazolam 0 No Notes: Memor ia 2 MG Oral 708 With food l Tablet 06:56: or milk [place] [Xanax] 00 (Same as: Xanax) Alprazolam 2017-0 No Notes: Memor ia 2 MG Oral 7-08 With food l Tablet 06:56: or milk [place] [Xanax] 00 (Same as: Xanax) NS (Bolus) 0 No 250 mL, Kojo lynn IV 7-08 500 ml/hr, l 06:34: Infuse [place] 00 Over: 0.5 hr, Route: IV, 250, Drug form: INJ, ONCE, Priority: STAT, Dosing Weight 74.091 kg, Start date: 04/15/18 1:34:00 CDT, Stop date: 04/15/18 1:34:00 CDT NS (Bolus) 0 No 250 mL, Kojo lynn IV 7-08 500 ml/hr, l 06:34: Infuse [place] 00 Over: 0.5 hr, Route: IV, 250, Drug form: INJ, ONCE, Priority: STAT, Dosing Weight 74.091 kg, Start date: 04/15/18 1:34:00 CDT, Stop date: 04/15/18 1:34:00 CDT Hydralazine 2017-0 No 10 mg, Kojo lynn 7-08 Route: l 06:27: IVP, ONCE, [place] 00 Dosing Weight 74.091, kg, Priority: STAT, Start date: 04/15/18 1:27:00 CDT, Stop date: 04/15/18 1:27:00 CDT Hydralazine No 10 mg, Kojo lynn 7-08 Route: l 06:27: IVP, ONCE, Dosing Weight 74.091, kg, Priority: STAT, Start date: 04/15/18 1:27:00 CDT, Stop date: 04/15/18 1:27:00 CDT Amlodipine No Notes: Memor ia 7-08 (Same as: l 03:50: Norvasc) Hydralazine No Notes: Kojo lynn 7-08 (Same as: l 03:50: Apresoline ) Push over 5 minutes Amlodipine No Notes: Memor ia 7-08 (Same as: l 03:50: Norvasc) Hydralazine No [...] date: 04/14/18 22:02:00 CDT Clonidine 0 No 0.1 mg, Memor ia Hydrochlori 7-08 Route: PO, l de 0.1 MG 03:02: Drug form: [place] Oral Tablet 00 TAB, ONCE, Dosing Weight 74.091, kg, Priority: STAT, Start date: 04/14/18 22:02:00 CDT, Stop date: 04/14/18 22:02:00 CDT Clonidine 2017-0 No Notes: Memori a Hydrochlori 7-08 (Same As: l de 0.1 MG 00:45: Catapres) Her meeks Oral Tablet 00 Clonidine No Notes: Memori a Hydrochlori 7-08 (Same As: l de 0.1 MG 00:45: Catapres) Her meeks Oral Tablet 00 Saline No Notes: Memoria Flush 0.9% 04-14 (Same as: l 23:55: BD [place] 00 Posiflush) Saline No Notes: Memoria Flush [...] Refill(s), Pharmacy: [facility] #[id number] cefdinir Yes 300 mg = 1 Mem oria 300 MG Oral 6-11 cap, PO, l Capsule 17:08: Q12H, X 7 [place] 00 day, # 14 cap, 0 Refill(s), Pharmacy: [facility] #[id number] heparin No 10,000 Memoria 6-11 unit, 10 l 15:00: mL, Route: [place] 00 DIALYSIS, Drug form: INJ, ONCALL, Dosing Weight 100.455, kg, Start date: 03/19/18 10:00:00 CDT, Duration: 1 doses or times heparin 0 No 10,000 Memoria 6-11 unit, 10 l 15:00: mL, Route: [place] 00 DIALYSIS, Drug form: INJ, ONCALL, Dosing [...] date: 03/20/18 9:13:00 CDT, 2.19, m2 Sodium No 1,000 mL, Memori a Chloride 6-11 Rate: l 0.9% IV 14:14: 2000, [place] 1,000 mL 00 Route: IV, Dosing Weight [...] Hydrochlori 00 acetaminop de 5 MG hen. (Same Oral Tablet as: [Percocet Percocet-5 5/325] /325) Acetaminoph No Notes: Do M emoria en 325 MG / 6-10 not exceed l Oxycodone 22:00: 4gm/day of He r[place] Hydrochlori 00 acetaminop de 5 MG hen. (Same Oral Tablet as: [Percocet Percocet-5 5/325] /325) Amlodipine No Notes: Memor ia 6-10 (Same as: l 14:00: Norvasc) Amlodipine No Notes: Memor ia 6-10 (Same as: l 14:00: Norvasc) Alprazolam No Notes: Memor ia 2 MG Oral 6-10 With food l Tablet 04:20: or milk [Xanax] (Same as: Xanax) Alprazolam No Notes: Memor ia 2 MG Oral 6-10 With food l Tablet 04:20: or milk [place] [Xanax] 00 (Same as: Xanax) Vancomycin 2018- No 2000 mg: [place] [facility] infuse l Dosing + 03:00: over 2.5 [place] nn Sodium 00 hours For Chloride adult 0.9% IV 250 patients mL only: Round to nearest 250 mg per Medical Staff approval MEDICATION WASTE Product Size: 1000 mg Product Wasted: ___ mg Vancomycin 2018- No 2001 mg: [place] [facility] infuse l Dosing + 03:00: over 2.5 [place] nn Sodium 00 hours For Chloride adult 0.9% IV 250 patients mL only: Round to nearest 250 mg per Medical Staff approval MEDICATION WASTE Product Size: 1000 mg Product Wasted: ___ mg tamsulosin No Notes: Memor ia 6-10 (Same As: l 02:00: Flomax) [place] "Do Not Crush" carvedilol No Notes: Memor ia 6-10 Give with l 02:00: food. [place] 00 (Same As: Coreg) tamsulosin No Notes: Memor ia 6-10 (Same As: l 02:00: Flomax) [place] 00 "Do Not Crush" carvedilol No Notes: Memor ia 6-10 Give with l 02:00: food. [place] 00 (Same As: Coreg) Hydralazine No Notes: Kojo lynn Hydrochlori 6-09 (Same as: l de 25 MG 22:00: Apresoline Her meeks Oral Tablet 00 ) May interfere w/enteral feedings Take With Food. Lasix No Notes: Memoria 6-09 (Same as: l 22:00: Lasix) May [place] cause GI upset. Give with food or milk. Hydralazine No Notes: Kojo lynn Hydrochlori 6-09 (Same as: l de 25 MG 22:00: Apresoline Her meeks Oral Tablet 00 ) May interfere w/enteral feedings Take With Food. Lasix No Notes: Memoria 6-09 (Same as: l 22:00: Lasix) May [place] cause GI upset. Give with food or milk. Hydralazine No Notes: Kojo lynn 03-17 (Same as: l 20:10: Apresoline [place] 00 ) Push over 5 minutes Acetaminoph No Notes: Kojo lynn en 325 MG / 03-17 (Same as: l Hydrocodone 20:10: [place] Bitartrate 00 325/5) Do 5 MG Oral not exceed Tablet 4gm/day of [[place] acetaminop 5/325] hen. Hydralazine No Notes: Kojo lynn - (Same as: l 20:10: Apresoline [place] 00 ) Push over 5 minutes Acetaminoph No Notes: Kojo lynn en 325 MG / 03-17 (Same as: l Hydrocodone 20:10: [place] nn Bitartrate 00 325/5) Do 5 MG Oral not exceed Tablet 4gm/day of [[place] acetaminop 5/325] hen. phenol No Notes: Memoria 03-17 Chlorasept l 20:08: ic [place] (Same as: Chlorasept ic, Sore Throat [place]) WASTE: F/P - Black; E - Municipal Trash Bin phenol No Notes: Memoria 03-17 Chlorasept l 20:08: ic [place] 00 (Same as: Chlorasept ic, Sore Throat [place]) WASTE: F/P - Black; E - Municipal Trash Bin Furosemide Yes 80 mg = 1 Me moria 80 MG Oral 03-17 tab, PO, l Tablet 15:44: BID, 0 [place] [Lasix] 00 Refill(s) amLODIPine Yes 10 mg = 1 Me moria 10 mg oral 03-17 tab, PO, l tablet 15:44: Daily, # [place] 00 30 tab, 0 Refill(s) carvedilol Yes 3.125 mg = M emoria 3.125 mg 03-17 1 tab, PO, l oral tablet 15:44: Q12H, # 60 [place] 00 tab, 0 Refill(s) calcium Yes 2,001 mg = Kojo lynn acetate 667 03-17 3 cap, PO, l MG Oral 15:44: TID, 0 [place] Capsule 00 Refill(s) Acetaminoph 2018-0 Yes 1 tab, PO, Memoria en 325 MG / 6-09 BID, 0 l Oxycodone 15:44: Refill(s) Her meeks Hydrochlori 00 de 5 MG Oral Tablet [Percocet 5/325] Hydralazine 2018-0 Yes 25 mg = 1 M emoria Hydrochlori -09 tab, PO, l de 25 MG 15:44: TID, # 270 Her meeks Oral Tablet 00 tab, 1 Refill(s) tamsulosin 2017- Yes 0.4 mg = 1 M emoria 0.4 mg oral 03-17 cap, PO, l capsule 15:44: Bedtime, 0 Herm dionne 00 Refill(s) Furosemide 0 Yes 80 mg = 1 Me moria 80 MG Oral 03-17 tab, PO, l Tablet 15:44: BID, 0 [place] [Lasix] 00 Refill(s) amLODIPine Yes 10 mg = 1 Me moria 10 mg oral 03-17 tab, PO, l tablet 15:44: Daily, # [place] 00 30 tab, 0 Refill(s) carvedilol 0 Yes 3.125 mg = M emoria 3.125 mg 03-17 1 tab, PO, l oral tablet 15:44: Q12H, # 60 [place] 00 tab, 0 Refill(s) calcium 2017-0 Yes 2,001 mg = Kojo lynn acetate 667 03-17 3 cap, PO, l MG Oral 15:44: TID, 0 [place] Capsule 00 Refill(s) Acetaminoph 2018-0 Yes 1 tab, PO, Memoria en 325 MG / 6-09 BID, 0 l Oxycodone 15:44: Refill(s) Her me[place] Hydrochlori 00 de 5 MG Oral Tablet [Percocet 5/325] Hydralazine 2018-0 Yes 25 mg = 1 M emoria Hydrochlori -09 tab, PO, l de 25 MG 15:44: TID, # 270 Her meeks Oral Tablet 00 tab, 1 Refill(s) tamsulosin 2017- Yes 0.4 mg = 1 M emoria 0.4 mg oral 609 cap, PO, l capsule 15:44: Bedtime, 0 Herm dionne 00 Refill(s) heparin No Notes: Memoria 03-17 porcine l 14:00: heparin heparin No Notes: Memoria 03-17 porcine l 14:00: heparin heparin No 10,000 Memoria 6-09 unit, 10 l 13:00: mL, Route: [place] 00 DIALYSIS, Drug form: INJ, ONCALL, Dosing Weight 100.455, kg, Start date: 03/17/18 8:00:00 CDT, Duration: 1 doses or times heparin No 10,000 Memoria 6-09 unit, 10 l 13:00: mL, Route: [place] 00 DIALYSIS, Drug form: INJ, ONCALL, Dosing Weight 100.455, kg, Start date: 03/17/18 8:00:00 CDT, Duration: 1 doses or times Mannitol Yes Notes: Memoria 03-17 (Same as: l 12:41: Osmitrol) [place] Infuse through 5 micron or smaller filter [...] Chloride 03-17 2000 l 0.9% 12:00: ml/hr, [place] (Bolus) IV 00 Infuse Over: 1 hr, Route: IV, 2,000, Drug form: INJ, ONCE, Priority: STAT, Dosing Weight 98.182 kg, Start date: 03/17/18 7:00:00 CDT, PRN Dialysis cefepime No Notes: Memoria 03-17 (Same As: l 12:00: Maxipime) [place] 00 MEDICATION WASTE Product Size: 1000 mg Product Wasted: ___ mg Vancomycin No 2000 mg: Me moria 03-17 [...] Memoria 03-17 (Same As: l 12:00: Maxipime) [place] MEDICATION WASTE Product Size: 1000 mg Product Wasted: ___ mg Saline No Notes: Memoria Flush 0.9% 03-17 (Same as: l 11:53: BD [place] 00 Posiflush) Acetaminoph No Notes: Do M emoria en 03-17 not exceed l 11:53: 4 gm/day. [place] 00 (Same as: Tylenol) Saline No Notes: Memoria Flush 0.9% 03-17 (Same as: l 11:53: BD [place] 00 Posiflush) Acetaminoph No Notes: Do M emoria en 03-17 not exceed l 11:53: 4 gm/day. [place] (Same as: Tylenol) Insulin No Notes: Memoria [...] 6-09 mL, Route: l 11:49: IVP, Drug [place] 00 Form: INJ, Dosing Weight 98.182, kg, PRN, PRN Blood Glucose Results, Start date: 03/17/18 6:49:00 CDT, Duration: 30 day, Stop date: 04/16/18 6:48:00 CDT Insulin 2017-0 No Notes: Memoria Lispro 03-17 (Same as: l 11:49: Humalog ) Roll in palms of hands gently; Do not shake `vigorousl y. "Single Patient Use Only " WASTE: F/P - Black; E - Municipal Trash Bin Stable for 28 days at room temperatur e. Expires in days from ____Date Glucagon 2017-0 No 1 mg, Memoria 03-17 Route: IM, l 11:49: Drug form: 00 PDR/INJ, PRN, Dosing Weight 98.182, kg, PRN Blood Glucose Results, Start date: 03/17/18 6:49:00 CDT, Duration: 30 day, Stop date: 04/16/18 6:48:00 CDT Dextrose 2017-0 No 25 gm, 50 Kojo lynn 50% Syringe 6-09 mL, Route: l 11:49: IVP, Drug Form: [...] moria 03-17 infuse l 10:49: over 2.5 [place] 00 hours For adult patients only: Round to nearest 250 mg per Medical Staff approval MEDICATION WASTE Product Size: 1000 mg Product Wasted: ___ mg Zosyn No Notes: Memoria 6- (Same as: l 10:49: Zosyn) [place] 00 [...] mg Saline No Notes: Memoria Flush 0.9% 6 (Same as: l 07:36: BD [place] 00 Posiflush) Saline No Notes: Memoria Flush 0.9% 6-09 (Same as: l 07:36: BD [place] 00 Posiflush) Saline No Notes: Memoria Flush 0.9% 4-17 (Same as: l 00:31: BD [place] 00 Posiflush) Saline No Notes: Memoria Flush 0.9% 4-17 (Same as: l 00:31: BD [place] 00 Posiflush) Lasix No Notes: Memoria 3-15 (Same as: l 14:00: Lasix) May [place] 00 cause GI upset. Give with food or milk. Lasix No Notes: Memoria 3-15 (Same as: l 14:00: Lasix) May [place] cause GI upset. Give with food or milk. calcitriol No 0.5 Memoria 0.5 mcg 3-14 microgram l oral 14:51: = 1 cap, [place] capsule 00 PO, Daily, # 30 cap, 0 Refill(s), Pharmacy: [facility] calcitriol No 0.5 Memoria 0.5 mcg 3-14 microgram l oral 14:51: = 1 cap, [place] capsule 00 PO, Daily, # 30 cap, 0 Refill(s), Pharmacy: [facility] Ergocalcife Yes 50,000 Kojo lynn rol [id number] 3-14 IntlUnit = l UNT Oral 14:47: 1 cap, PO, Her meeks Capsule 00 qWeek, # 5 cap, 0 Refill(s), Pharmacy: [facility] Calcium 0 No 2,000 mg = Kojo lynn Carbonate 3-14 4 tab, PO, l 500 MG 14:47: TID, # 168 [place] nn Chewable 00 tab, 0 Tablet Refill(s), Pharmacy: [facility] sevelamer No 2,400 mg = Me moria carbonate 3-14 3 tab, PO, l 800 mg oral 14:47: TID-Meals, [place] tablet 00 # 270 tab, 0 Refill(s), Pharmacy: [facility] Furosemide 0 No 80 mg, PO, M emoria 80 MG Oral 3-14 Daily, # l Tablet 14:47: 30 ea, 0 [place] [Lasix] 00 Refill(s), Pharmacy: [facility] carvedilol No 3.125 mg = M emoria 3.125 mg 3-14 1 tab, PO, l oral tablet 14:47: Q12H, # 60 [place] 00 tab, 0 Refill(s), Pharmacy: [facility] amLODIPine No 10 mg = 2 Me moria 5 mg oral 3-14 tab, PO, l tablet 14:47: Daily, # [place] 00 60 tab, 0 Refill(s), Pharmacy: [facility] Ergocalcife Yes 50,000 Kojo lynn rol [id number] 3-14 IntlUnit = l UNT Oral 14:47: 1 cap, PO, Her meeks Capsule 00 qWeek, # 5 cap, 0 Refill(s), Pharmacy: [facility] Calcium 0 No 2,000 mg = Kojo lynn Carbonate 3-14 4 tab, PO, l 500 MG 14:47: TID, # 168 [place] nn Chewable 00 tab, 0 Tablet Refill(s), Pharmacy: [facility] sevelamer 0 No 2,400 mg = Me moria carbonate 3-14 3 tab, PO, l 800 mg oral 14:47: TID-Meals, [place] tablet 00 # 270 tab, 0 Refill(s), Pharmacy: [facility] Furosemide No 80 mg, PO, M emoria 80 MG Oral 3-14 Daily, # l Tablet 14:47: 30 ea, 0 [place] [Lasix] 00 Refill(s), Pharmacy: [facility] carvedilol No 3.125 mg = M emoria 3.125 mg 3-14 1 tab, PO, l oral tablet 14:47: Q12H, # 60 [place] 00 tab, 0 Refill(s), Pharmacy: [facility] amLODIPine No 10 mg = 2 Me moria 5 mg oral 3-14 tab, PO, l tablet 14:47: Daily, # [place] 00 60 tab, 0 Refill(s), Pharmacy: [facility] Calcium No Notes: Memoria Gluconate 3-14 WASTE: F/P l 11:50: - Sink; E [place] 00 - Municipal Trash Bin Calcium No Notes: Memoria Gluconate 3-14 WASTE: F/P l 11:50: - Sink; E [place] 00 - Municipal Trash Bin Coreg No Notes: Memoria 3-14 Give with l 02:00: food. [place] 00 (Same As: Coreg) Coreg No Notes: Memoria 3-14 Give with l 02:00: food. [place] 00 (Same As: Coreg) Lasix No Notes: Memoria 3-13 (Same as: l 14:00: Lasix) [place] 00 MEDICATION WASTE Product Size: 40 mg Product Wasted: ___ mg Vitamin D2 No Notes: Memor ia 3-13 (Same as: l 14:00: Vitamin D) [place] 00 "Do Not Crush" Lasix No Notes: Memoria 3-13 (Same as: l 14:00: Lasix) [place] 00 MEDICATION WASTE Product Size: 40 mg [...] Notes: Memoria 3-11 Same as: l 17:00: Renvel RenaGel No Notes: Memoria 3-11 Same as: l 17:00: Renvela Lasix No Notes: Memoria 3-11 (Same as: l 14:00: Lasix) MEDICATION WASTE Product Size: 40 mg Product Wasted: ___ mg Venofer No Notes: Memoria 3-11 Each 5ml l 14:00: contains [place] 00 100mg elemental iron. Mix with NS Non-Formul heydi (Same as:Venofer ) Administer IV only. MEDICATION WASTE Product Size: 100 mg Product Wasted: ___ mg Lasix No Notes: Memoria 3-11 (Same as: l 14:00: Lasix) [place] 00 MEDICATION WASTE Product Size: 40 mg [...] bicarbonate 3-11 (sodium l 8.4% 01:11: bicarb [place] 00 8.4% (1 mEq/ml) 50 ml syringe) Amlodipine No Notes: Memor ia 3-10 (Same as: l 15:00: Norvasc) [place] 00 Amlodipine No Notes: Memor ia 3-10 (Same as: l 15:00: Norvasc) [place] 00 Kayexalate No Notes: Memor ia 3-10 (sodium l 13:38: polystyren [place] 00 e sulfonate 15 gm/60 ml CANDACE) Shake well before use. (Same as: Kayexalate , SPS) Kayexalate No Notes: Memor ia 3-10 (sodium l 13:38: polystyren [place] 00 e sulfonate 15 gm/60 ml CANDACE) Shake well before use. (Same as: Kayexalate , SPS) Calcium No Notes: Memoria Gluconate 3-09 WASTE: F/P l 23:43: - Sink; E [place] 00 - Municipal Trash Bin Calcium No Notes: Memoria Gluconate 3-09 WASTE: F/P l 23:43: - Sink; E [place] 00 - Municipal Trash Bin Dilaudid No Notes: Memoria 3-09 (Same as: l 21:38: Dilaudid) [place] 00 Dilaudid No Notes: Memoria 3-09 (Same as: l 21:38: Dilaudid) [place] 00 Morphine No Notes: Memoria 3-09 (Same l 19:02: as:MORPhin [place] 00 e Sulfate) Morphine No Notes: Memoria 3-09 (Same l 19:02: as:MORPhin [place] 00 e Sulfate) Acetaminoph No 2 tabs, [...] tab, PO, l Tablet 18:19: BID, PRN [place] [Xanax] 00 as needed for anxiety, 0 Refill(s) Amlodipine No 1 cap, PO, M emoria 10 MG / 3-09 TID, 0 l Benazepril 18:19: Refill(s) He r[place] hydrochlori 00 de 20 MG Oral Capsule [Lotrel 10/20] lisinopril No 20 mg = 1 Me moria 20 mg oral 3-09 tab, PO, l tablet 18:19: Daily, 0 [place] 00 Refill(s) Alprazolam Yes 2 mg = [...] tab, PO, l tablet 18:19: Daily, 0 [place] 00 Refill(s) Calcium No Notes: Memoria Carbonate [...] Notes: Kojo lynn en 325 MG / 3-09 (Same as: l Hydrocodone 14:31: [place] nn Bitartrate 00 325/5) Do 5 MG Oral not exceed Tablet 4gm/day of acetaminop hen. Ondansetron No Notes: Kojo lynn 3-09 (Same as: l 14:31: Zofran) [place] 00 MEDICATION WASTE Product Size: 4 mg Product Wasted: ___ mg Acetaminoph No Notes: Do M emoria en 3-09 not exceed l 14:31: 4 gm/day. [place] (Same as: Tylenol) Acetaminoph No Notes: Kojo lynn en 325 MG / 3-09 (Same as: l Hydrocodone 14:31: [place] nn Bitartrate 00 325/5) Do 5 MG Oral not exceed Tablet 4gm/day of acetaminop hen. Saline No Notes: Memoria Flush 0.9% 3-09 (Same as: l 12:30: BD [place] 00 Posiflush) Saline No Notes: Memoria Flush 0.9% 3-09 (Same as: l 12:30: BD [place] 00 Posiflush) Lasix No Notes: Memoria 3-09 (Same as: l 10:45: Lasix) [place] 00 MEDICATION WASTE Product Size: 40 mg Product Wasted: ___ mg Lasix No Notes: Memoria 3-09 (Same as: l 10:45: Lasix) [place] 00 MEDICATION WASTE Product Size: 40 mg Product Wasted: ___ mg Immunizations Ordered Filled Immunization Date Status Comments [facility] e Immunization Name Name influenza virus 2020-07-15 [facility]00 inactivated influenza virus 2020-07-15 [facility], 19:16:00 inactivated Hep B, Adol or Pedi 2018-08-16 Completed [facility] Dosage 00:00:00 [facility] Hep B, Adol or Pedi 2018-08-16 Completed [...] 2018-08-16 Completed [facility] Dosage 00:00:00 [facility] Hep B, Adol or Pedi 2018-08-16 Completed [facility] of Dosage 00:00:00 [facility] Hep B, Adol or Pedi 2018-08-16 Completed [facility] of Dosage 00:00:00 [facility] Hep B, Adol or Pedi 2018-08-16 Completed [facility] of Dosage 00:00:00 [facility] Hep B, Adol or Pedi 2018-08-16 Completed [facility] of Dosage 00:00:00 [facility] Hep B, Adol or Pedi 2018-08-16 Completed [facility] of Dosage 00:00:00 [facility] Influenza Virus 2018-06-28 Completed [facility] Vaccine 00:00:00 [facility] Influenza Virus 2018-06-28 Completed [facility] Vaccine 00:00:00 [facility] Influenza Virus 2018-06-28 Completed [facility] Vaccine 00:00:00 [facility] Influenza Virus 2018-06-28 Completed [facility] Vaccine 00:00:00 [facility] Influenza Virus 2018-06-28 Completed [facility] Vaccine 00:00:00 [facility] Influenza Virus 2018-06-28 Completed [facility] Vaccine 00:00:00 [facility] Influenza Virus 2018-06-28 Completed [facility] Vaccine 00:00:00 [facility] Influenza Virus 2018-06-28 Completed [facility] Vaccine 00:00:00 [facility] Influenza Virus 2018-06-28 Completed [facility] Vaccine 00:00:00 [facility] Influenza Virus 2018-06-28 Completed [facility] Vaccine 00:00:00 [facility] Influenza Virus 2018-06-28 Completed [facility] Vaccine 00:00:00 [facility] Influenza Virus 2018-06-28 Completed [facility] Vaccine 00:00:00 [facility] Hep B, Adol [...] 2018-05-08 Completed [facility] of Dosage 00:00:00 [facility] Hep B, Adol or Pedi [...] Completed [facility] of Dosage 00:00:00 [facility] Hep B, Adol or Pedi 2018-04-05 Completed [facility] of Dosage 00:00:00 [facility] Hep B, Adol or Pedi 2018-04-05 Completed [facility] of Dosage 00:00:00 [facility] Hep B, Adol or Pedi 2018-04-05 Completed [facility] of Dosage 00:00:00 [facility] Hep B, Adol or Pedi 2018-04-05 Completed [facility] of Dosage 00:00:00 [facility] Hep B, Adol or Pedi 2018-04-05 Completed [facility] of Dosage 00:00:00 [facility] Hep B, Adol or Pedi 2018-04-05 Completed [facility] of Dosage 00:00:00 [facility] Hep B, Adol or Pedi 2018-04-05 Completed [facility] of Dosage 00:00:00 [facility] pneumococcal 2018-03-20 Completed [facility] 13-valent vaccine 21:53:00 pneumococcal 2018-03-20 Completed [facility] [facility] 13-valent vaccine 21:53:00 Hep B, Adol or Pedi 2018-03-03 Completed Unive rsity of Dosage 00:00:00 [facility] Hep B, Adol or Pedi 2018-03-03 Completed Unive rsity of Dosage 00:00:00 [facility] Hep B, Adol or Pedi 2018-03-03 Completed [facility]ive rsity of Dosage 00:00:00 [facility] Hep B, Adol or Pedi 2018-03-03 Completed [facility]ive rsity of Dosage 00:00:00 [facility] Hep B, Adol or Pedi 2018-03-03 Completed Unive rsity of Dosage 00:00:00 [facility] Hep B, Adol or Pedi 2018-03-03 Completed [facility]ive rsity of Dosage 00:00:00 [facility] Hep B, Adol or Pedi 2018-03-03 Completed Unive rsity of Dosage 00:00:00 [facility] Hep B, Adol or Pedi 2018-03-03 Completed Unive rsity of Dosage 00:00:00 [facility] Hep B, Adol or Pedi 2018-03-03 Completed [facility]ive [facility] of Dosage 00:00:00 [facility] Hep B, Adol or Pedi 2018-03-03 Completed Unive rsity of Dosage 00:00:00 [facility] Hep B, Adol or Pedi 2018-03-03 Completed Unive rsity of Dosage 00:00:00 [facility] Hep B, Adol or Pedi 2018-03-03 Completed Unive rsity of Dosage 00:00:00 [facility] Pneumococcal 2018-03-01 Completed University o f Polysaccharide, [...] 2018-03-01 Completed [facility] o f Polysaccharide, 00:00:00 [place] [facility] PPSV23 (PNEUMOVAX) [facility] PPD (TB) 2018-02-27 Completed [facility] 00:00:00 [facility] PPD (TB) 2018-02-27 Completed University of 00:00:00 [facility] PPD (TB) 2018-02-27 Completed [facility] of 00:00:00 [facility] PPD (TB) 2018-02-27 Completed [facility] of 00:00:00 [facility] PPD (TB) 2018-02-27 Completed [facility] of 00:00:00 [facility] PPD (TB) 2018-02-27 Completed [facility] of 00:00:00 [facility] PPD (TB) 2018-02-27 Completed [facility] of 00:00:00 [facility] PPD (TB) 2018-02-27 Completed University of 00:00:00 [facility] PPD (TB) 2018-02-27 Completed University of 00:00:00 [facility] PPD (TB) 2018-02-27 Completed [facility] of 00:00:00 [facility] PPD (TB) 2018-02-27 Completed [facility] of 00:00:00 [facility] PPD (TB) 2018-02-27 Completed [facility] 00:00:00 [facility] Vital Signs Vital Name Observation Time Observation Value Comments Source Heart Rate 2020-08-12 23:15:00 [facility] Respitory Rate 2020-08-12 23:15:00 [facility] Systolic (mm Hg) 2020-08-12 23:15:00 [facility] [place] Diastolic (mm Hg) 2020-08-12 23:15:00 [facility] Temperature Oral (F) 2020-08-12 23:15:00 98.1 F [facility] Temperature Oral (F) 2020-08-12 19:20:00 98.0 F [facility] Heart Rate 2020-08-12 19:20:00 [facility] Respitory Rate 2020-08-12 19:20:00 [facility] Systolic (mm Hg) 2020-08-12 19:20:00 [facility] [place] Diastolic (mm Hg) 2020-08-12 19:20:00 [facility] Respitory Rate 2020-08-12 19:00:00 [facility] [place] Systolic (mm Hg) 2020-08-12 19:00:00 [facility] [place] Diastolic (mm Hg) 2020-08-12 19:00:00 [facility] Temperature Oral (F) 2020-08-12 14:00:00 97.7 F [facility] Heart Rate 2020-08-12 14:00:00 [facility] Temperature Oral (F) 2020-08-10 06:00:00 98.3 F [facility] Heart Rate 2020-08-10 06:00:00 [facility] Respitory Rate 2020-08-10 06:00:00 [facility] Systolic (mm Hg) 2020-08-10 06:00:00 [facility] [place] Diastolic (mm Hg) 2020-08-10 06:00:00 [facility] Temperature Oral (F) 2020-08-10 02:00:00 98.4 F [facility] Heart Rate 2020-08-10 02:00:00 [facility] Respitory Rate 2020-08-10 02:00:00 [facility] [place] Systolic (mm Hg) 2020-08-10 02:00:00 [facility] Diastolic (mm Hg) 2020-08-10 02:00:00 [facility] Temperature Oral (F) 2020-08-09 22:00:00 98.3 F [facility] Heart Rate 2020-08-09 22:00:00 [facility] Respitory Rate 2020-08-09 22:00:00 [facility] Systolic (mm Hg) 2020-08-09 22:00:00 [facility] [place] Diastolic (mm Hg) 2020-08-09 22:00:00 [facility] Height 2020-08-07 03:47:00 170.18 cm [facility] Weight 2020-08-07 03:47:00 [facility] BMI Calculated [...] [facility] Respitory Rate 2020-07-24 15:04:00 [facility] [place] Systolic (mm Hg) 2020-07-24 15:04:00 [facility] Diastolic (mm Hg) 2020-07-24 15:04:00 [facility] [place] Heart Rate 2020-07-24 15:04:00 [facility] Temperature Oral (F) 2020-07-24 15:04:00 97.9 F [facility] Height 2020-07-24 14:45:00 170.18 cm [facility] BMI Calculated 2020-07-24 14:45:00 [facility] Weight 2020-07-24 14:45:00 [facility] Heart Rate 2020-07-24 13:10:00 [facility] Respitory Rate 2020-07-24 13:10:00 [facility] [place] Systolic (mm Hg) 2020-07-24 13:10:00 [facility] [place] Diastolic (mm Hg) 2020-07-24 13:10:00 [facility] Height 2020-07-24 12:55:00 170.18 cm [facility] BMI Calculated 2020-07-24 12:55:00 [facility] Weight 2020-07-24 12:55:00 [facility] Heart Rate 2020-07-24 12:55:00 [facility] Temperature Oral (F) 2020-07-24 12:55:00 98.2 F [facility] Heart Rate 2020-07-15 19:07:00 [facility] Respitory Rate 2020-07-15 19:07:00 [facility] [place] Systolic (mm Hg) 2020-07-15 19:07:00 [facility] [place] Diastolic (mm Hg) 2020-07-15 19:07:00 [facility] [place] Temperature Oral (F) 2020-07-15 17:00:00 98.1 F [facility] Heart Rate 2020-07-15 17:00:00 [facility] Systolic (mm Hg) 2020-07-15 17:00:00 [facility] Diastolic (mm Hg) 2020-07-15 17:00:00 [facility] [place] Respitory Rate 2020-07-15 17:00:00 [facility] Temperature Oral (F) 2020-07-15 13:00:00 98.3 F [facility] Heart Rate 2020-07-15 13:00:00 [facility] Systolic (mm Hg) 2020-07-15 13:00:00 [facility] [place] Diastolic (mm Hg) 2020-07-15 13:00:00 [facility] [place] Temperature Oral (F) 2020-07-15 09:00:00 98.1 F [facility] Respitory Rate 2020-07-15 09:00:00 [facility] Height 2020-07-06 10:14:00 170.18 cm [facility] BMI Calculated 2020-07-06 10:14:00 [facility] Weight 2020-07-06 10:14:00 [facility] Systolic (mm Hg) 2020-05-21 15:01:00 [facility] Diastolic (mm Hg) 2020-05-21 15:01:00 [facility] Heart Rate 2020-05-21 15:01:00 [facility] Respitory Rate 2020-05-21 15:01:00 [facility] [place] Height 2020-05-21 13:15:00 170.18 cm [facility] BMI Calculated 2020-05-21 13:15:00 [facility] Weight 2020-05-21 13:15:00 [facility] Systolic (mm Hg) 2020-05-21 13:15:00 [facility] [place] Diastolic (mm Hg) 2020-05-21 13:15:00 [facility] [place] Heart Rate 2020-05-21 13:15:00 [facility] Respitory Rate 2020-05-21 13:15:00 [facility] Temperature Oral (F) 2020-05-21 13:15:00 98.5 F [facility] Systolic (mm Hg) 2020-03-23 14:05:00 [facility] Diastolic (mm Hg) 2020-03-23 14:05:00 [facility] [place] Systolic (mm Hg) 2020-03-23 13:00:00 [facility] [place] Diastolic (mm Hg) 2020-03-23 13:00:00 [facility] [place] Temperature Oral (F) 2020-03-23 13:00:00 98.5 F [facility] Heart Rate 2020-03-23 13:00:00 [facility] Respitory Rate 2020-03-23 13:00:00 [facility] Systolic (mm Hg) 2020-03-23 11:10:00 [facility] [place] Diastolic (mm Hg) 2020-03-23 11:10:00 [facility] Respitory Rate 2020-03-23 11:10:00 [facility] [place] Heart Rate 2020-03-23 11:10:00 [facility] Temperature Oral (F) 2020-03-23 11:10:00 98.4 F [facility] Respitory Rate 2020-03-23 09:42:00 [facility] Heart Rate 2020-03-23 09:42:00 [facility] Temperature Oral (F) 2020-03-23 08:46:00 98.3 F [facility] Height 2020-03-23 05:39:00 170.18 cm [facility] BMI Calculated 2020-03-23 05:39:00 [facility] Weight 2020-03-23 05:39:00 [facility] Systolic (mm Hg) 2020-02-03 23:19:00 [facility] [place] Diastolic (mm Hg) 2020-02-03 23:19:00 [facility] [place] Respitory Rate 2020-02-03 23:19:00 [facility] Heart Rate 2020-02-03 23:19:00 [facility] Temperature Oral (F) 2020-02-03 23:19:00 98.6 F [facility] Systolic (mm Hg) 2020-02-03 22:04:00 [facility] Diastolic (mm Hg) 2020-02-03 22:04:00 [facility] [place] Respitory Rate 2020-02-03 22:04:00 [facility] [place] Heart Rate 2020-02-03 22:04:00 [facility] Systolic (mm Hg) 2020-02-03 20:14:00 [facility] Diastolic (mm Hg) 2020-02-03 20:14:00 [facility] [place] Respitory Rate 2020-02-03 20:14:00 [facility] [place] Heart Rate 2020-02-03 20:14:00 [facility] Temperature Oral (F) 2020-02-03 20:14:00 98.5 F [facility] Height 2020-02-03 19:22:00 170.18 cm [facility] BMI Calculated 2020-02-03 19:22:00 [facility] Weight 2020-02-03 19:22:00 [facility] Temperature Oral (F) 2020-02-03 19:22:00 99.0 F [facility] Temperature Oral (F) 2019-11-05 18:00:00 98.3 F [facility] Heart Rate 2019-11-05 18:00:00 [facility] Respitory Rate 2019-11-05 18:00:00 [facility] Systolic (mm Hg) 2019-11-05 18:00:00 [facility] [place] Diastolic (mm Hg) 2019-11-05 18:00:00 [facility] [place] Temperature Oral (F) 2019-11-05 14:00:00 98.1 F [facility] Heart Rate 2019-11-05 14:00:00 [facility] Respitory Rate 2019-11-05 14:00:00 [facility] Systolic (mm Hg) 2019-11-05 14:00:00 [facility] Diastolic (mm Hg) 2019-11-05 14:00:00 [facility] Respitory Rate 2019-11-05 12:36:00 [facility] Temperature Oral (F) 2019-11-05 10:00:00 98.0 F [facility] Heart Rate 2019-11-05 10:00:00 [facility] Systolic (mm Hg) 2019-11-05 10:00:00 [facility] Diastolic (mm Hg) 2019-11-05 10:00:00 [facility] Height 2019-10-29 07:23:00 170.18 cm [facility] Weight 2019-10-29 07:23:00 [facility] BMI Calculated 2019-10-29 07:23:00 [facility] Height 2019-10-29 01:03:00 170.18 cm [facility] BMI Calculated 2019-10-29 01:03:00 [facility] Weight 2019-10-29 01:03:00 [facility] Temperature Oral (F) 2019-08-20 14:07:00 98.8 F [facility] Heart Rate 2019-08-20 14:07:00 [facility] Respitory Rate 2019-08-20 14:07:00 [facility] Systolic (mm Hg) 2019-08-20 14:07:00 [facility] Diastolic (mm Hg) 2019-08-20 14:07:00 [facility] [place] Systolic (mm Hg) 2019-08-20 12:15:00 [facility] [place] Diastolic (mm Hg) 2019-08-20 12:15:00 [facility] Heart Rate 2019-08-20 12:15:00 [facility] Temperature Oral (F) 2019-08-20 09:46:00 98.3 F [facility] Heart Rate 2019-08-20 09:46:00 [facility] Respitory Rate 2019-08-20 09:46:00 [facility] Systolic (mm Hg) 2019-08-20 09:46:00 [facility] Diastolic (mm Hg) 2019-08-20 09:46:00 [facility] Temperature Oral (F) 2019-08-20 06:02:00 98.5 F [facility] Respitory Rate 2019-08-20 06:02:00 [facility] Height 2019-08-14 22:12:00 175.26 cm [facility] Weight 2019-08-14 22:12:00 [facility] BMI Calculated 2019-08-14 22:12:00 [facility] Respitory Rate 2019-04-08 17:36:00 [facility] Systolic (mm Hg) 2019-04-08 17:36:00 [facility] [place] Diastolic (mm Hg) 2019-04-08 17:36:00 [facility] [place] Temperature Oral (F) 2019-04-08 17:36:00 98.0 F [facility] Heart Rate 2019-04-08 17:36:00 [facility] Respitory Rate 2019-04-08 13:23:00 [facility] [place] Heart Rate 2019-04-08 13:23:00 [facility] Temperature Oral (F) 2019-04-08 13:23:00 98.1 F [facility] Systolic (mm Hg) 2019-04-08 13:23:00 [facility] Diastolic (mm Hg) 2019-04-08 13:23:00 [facility] [place] Systolic (mm Hg) 2019-04-08 08:40:00 [facility] [place] Diastolic (mm Hg) 2019-04-08 08:40:00 [facility] [place] Respitory Rate 2019-04-08 08:40:00 [facility] Heart Rate 2019-04-08 08:40:00 [facility] Temperature Oral (F) 2019-04-08 08:40:00 98.0 F [facility] Weight 2019-04-06 04:23:00 [facility] BMI Calculated 2019-04-06 04:17:00 [facility] Height 2019-04-06 04:17:00 167.64 cm [facility] Weight 2019-04-06 04:17:00 [facility] Respitory Rate 2018-07-24 20:59:00 [facility] Systolic (mm Hg) 2018-07-24 20:59:00 [facility] [place] Diastolic (mm Hg) 2018-07-24 20:59:00 [facility] Heart Rate 2018-07-24 20:59:00 [facility] Temperature Oral (F) 2018-07-24 20:59:00 98.2 F [facility] Temperature Oral (F) 2018-07-24 16:59:00 98.3 F [facility] Heart Rate 2018-07-24 16:59:00 [facility] Respitory Rate 2018-07-24 16:59:00 [facility] Systolic (mm Hg) 2018-07-24 16:59:00 [facility] Diastolic (mm Hg) 2018-07-24 16:59:00 [facility] [place] Systolic (mm Hg) 2018-07-24 16:33:00 [facility] Diastolic (mm Hg) 2018-07-24 16:33:00 [facility] [place] Temperature Oral (F) 2018-07-24 16:33:00 98.2 F [facility] Respitory Rate 2018-07-24 16:33:00 [facility] Heart Rate 2018-07-24 16:33:00 [facility] Weight 2018-07-22 11:03:00 [facility] BMI Calculated 2018-07-22 11:03:00 [facility] Height 2018-07-22 11:03:00 170.18 cm [facility] BMI Calculated 2018-07-22 01:54:00 [facility] Height 2018-07-22 01:54:00 170.18 cm [facility] Weight 2018-07-22 01:54:00 [facility] Respitory Rate 2018-07-21 02:35:00 [facility] Temperature Oral (F) 2018-07-21 02:35:00 98.6 F [facility] Systolic (mm Hg) 2018-07-21 02:35:00 [facility] [place] Diastolic (mm Hg) 2018-07-21 02:35:00 [facility] Respitory Rate 2018-07-20 23:36:00 [facility] [place] Systolic (mm Hg) 2018-07-20 23:36:00 [facility] [place] Diastolic (mm Hg) 2018-07-20 23:36:00 [facility] [place] Systolic (mm Hg) 2018-07-20 22:37:00 [facility] Diastolic (mm Hg) 2018-07-20 22:37:00 [facility] Respitory Rate 2018-07-20 22:37:00 [facility] Heart Rate 2018-07-20 22:37:00 [facility] Temperature Oral (F) 2018-07-20 22:37:00 97.7 F [facility] Height 2018-07-20 22:37:00 170.18 cm [facility] BMI Calculated 2018-07-20 22:37:00 [facility] Weight 2018-07-20 22:37:00 [facility] BMI Calculated 2018-05-23 15:20:00 [facility] Weight 2018-05-23 15:20:00 [facility] Respitory Rate 2018-05-23 15:20:00 [facility] Heart Rate 2018-05-23 15:20:00 [facility] Height 2018-05-23 15:20:00 170 cm [facility] Systolic (mm Hg) 2018-05-23 15:20:00 [facility] Diastolic (mm Hg) 2018-05-23 15:20:00 [facility] [place] Systolic (mm Hg) 2018-04-15 21:25:00 [facility] Diastolic (mm Hg) 2018-04-15 21:25:00 [facility] Respitory Rate 2018-04-15 16:40:00 [facility] Heart Rate 2018-04-15 16:40:00 [facility] Systolic (mm Hg) 2018-04-15 16:40:00 [facility] Diastolic (mm Hg) 2018-04-15 16:40:00 [facility] [place] Temperature Oral (F) 2018-04-15 16:40:00 98.2 F [facility] Heart Rate 2018-04-15 13:15:00 [facility] Temperature Oral (F) 2018-04-15 13:15:00 98.0 F [facility] Systolic (mm Hg) 2018-04-15 13:15:00 [facility] [place] Diastolic (mm Hg) 2018-04-15 13:15:00 [facility] Respitory Rate 2018-04-15 13:15:00 [facility] Temperature Oral (F) 2018-04-15 09:31:00 98.2 F [facility] Heart Rate 2018-04-15 09:31:00 [facility] Respitory Rate 2018-04-15 09:31:00 [facility] Weight 2018-04-15 07:53:00 [facility] Weight 2018-04-14 23:25:00 [facility] Height 2018-04-14 23:25:00 172.72 cm [facility] BMI Calculated 2018-04-14 23:25:00 [facility] Systolic (mm Hg) 2018-03-20 16:07:00 [facility] [place] Diastolic (mm Hg) 2018-03-20 16:07:00 [facility] Respitory Rate 2018-03-20 16:07:00 [facility] Heart Rate 2018-03-20 16:07:00 [facility] Temperature Oral (F) 2018-03-20 16:07:00 98.4 F [facility] Systolic (mm Hg) 2018-03-20 12:44:00 [facility] [place] Diastolic (mm Hg) 2018-03-20 12:44:00 [facility] Respitory Rate 2018-03-20 12:44:00 [facility] [place] Heart Rate 2018-03-20 12:44:00 [facility] Temperature Oral (F) 2018-03-20 12:44:00 98.3 F [facility] Respitory Rate 2018-03-20 08:46:00 [facility] Temperature Oral (F) 2018-03-20 08:46:00 98.3 F [facility] Heart Rate 2018-03-20 08:46:00 [facility] Systolic (mm Hg) 2018-03-20 08:46:00 [facility] Diastolic (mm Hg) 2018-03-20 08:46:00 [facility] [place] BMI Calculated 2018-03-17 12:01:00 [facility] Weight 2018-03-17 12:01:00 [facility] Height 2018-03-17 12:01:00 167.64 cm [facility] Weight 2018-03-17 07:27:00 [facility] Temperature Oral (F) 2018-01-23 03:30:00 98.2 F [facility] Respitory Rate 2018-01-23 03:30:00 [facility] [place] Systolic (mm Hg) 2018-01-23 03:30:00 [facility] Diastolic (mm Hg) 2018-01-23 03:30:00 [facility] [place] Respitory Rate 2018-01-23 01:48:00 [facility] Heart Rate 2018-01-23 01:48:00 [facility] Systolic (mm Hg) 2018-01-23 01:48:00 [facility] Diastolic (mm Hg) 2018-01-23 01:48:00 [facility] Temperature Oral (F) 2018-01-23 00:14:00 98.2 F [facility] Respitory Rate 2018-01-23 00:14:00 [facility] Systolic (mm Hg) 2018-01-23 00:14:00 [facility] [place] Diastolic (mm Hg) 2018-01-23 00:14:00 [facility] [place] Heart Rate 2018-01-23 00:14:00 [facility] BMI Calculated 2018-01-23 00:14:00 [facility] Height 2018-01-23 00:14:00 165.1 cm [facility] Weight 2018-01-23 00:14:00 [facility] Systolic (mm Hg) 2017-12-20 12:31:00 [facility] [place] Diastolic (mm Hg) 2017-12-20 12:31:00 [facility] [place] Temperature Oral (F) 2017-12-20 12:31:00 98.0 F [facility] Respitory Rate 2017-12-20 12:31:00 [facility] Heart Rate 2017-12-20 12:31:00 [facility] Systolic (mm Hg) 2017-12-20 05:00:00 [facility] Diastolic (mm Hg) 2017-12-20 05:00:00 [facility] Temperature Oral (F) 2017-12-20 05:00:00 98 F [facility] Heart Rate 2017-12-20 05:00:00 [facility] Respitory Rate 2017-12-20 05:00:00 [place] Temperature Oral (F) 2017-12-20 01:00:00 97.6 F [facility] Heart Rate 2017-12-20 01:00:00 [facility] Systolic (mm Hg) 2017-12-20 01:00:00 [facility] [place] Diastolic (mm Hg) 2017-12-20 01:00:00 [facility] Respitory Rate 2017-12-20 01:00:00 [place] BMI Calculated 2017-12-15 16:46:00 [facility] Weight 2017-12-15 16:46:00 [facility] Height 2017-12-15 16:46:00 170.18 cm [facility] Height 2017-12-15 16:11:00 170.18 cm [facility] Weight 2017-12-15 11:31:00 [facility] Procedures Procedure Date / Time Performed Performing Clinician [facility] e Dialysis access site care [place] Knee maneuver [facility] Shoulder manipulation [facility] Encounters Start End Encounter Admission Attending Care Care Encounter Source Date/Time Date/Time Type Type Clinicians Facility Department ID 2021-11-04 Outpatient [id number] [facility] JACOB [id number] [facility] 12:13:09 [facility] 2021-11-04 Outpatient 3 [id number] [facility] REF [id number] [facility] 12:09:58 [facility] [place] [facility] 2021-11-04 Outpatient [id number] E[facility] REF [id number] [facility] 12:08:30 [facility] [place] 2021-08-06 Emergency [facility] [id number] [facility] 17:13:07 [facility] 2021-08-06 Outpatient Adalberto SHARIF RUST GIMarlene [id number] Univers 10:57:39 OMID [facility] 2021-08-05 Outpatient Adalberto MERRILL RUST DSKelly [id number] Univers 21:35:24 TEODORA [facility] 2019-04-05 Inpatient E [facility] MED [id number] B L 20:14:00 2019-04-05 Inpatient YESENIA SHRESTHA [facility] [id number] [facility] 18:31:48 2022-08-10 2022-08-10 Letter [facility] [id number] Univers 00:00:00 00:00:00 (Out) Pat Forrest MULTISPEC [id number] [id number] [id number] [facility] AND [address] [facility] 2022-08-04 2022-08-04 [facility] [id number] Univers 00:00:00 00:00:00 Rufina MULTISPEC [id number] [id number] [id number] [facility] AND [place] [address] [facility] 2022-08-04 2022-08-04 Telephone [facility] [id number] Univers 00:00:00 00:00:00 Adilia Clayton MULTISPEC 350.1.13.10 [id number] [id number] [facility] AND [address] [facility] 2022-05-02 2022-05-02 Committee [facility] [id number] Univers 00:00:00 00:00:00 Review Adilia Clayton MULTISPEC [id number] [id number] [id number] [address] [facility] 2022-04-27 2022-04-27 [facility] [id number] Univers 00:00:00 00:00:00 Theresa Rosario MULTISPEC [id number] [id number] [id number] [facility] AND [address] [facility] 2022-04-27 2022-04-27 Abstract [facility] [id number] Univers 00:00:00 00:00:00 Teodora MULTISPEC 350.1.13.10 [id number] [id number] [facility] [address] [place] [address] [facility] 2022-04-25 2022-04-25 Telephone [facility] [id number] Univers 00:00:00 00:00:00 Pat A MULTISPEC [id number] ity of IALTY [id number] [facility] [id number] [facility] [address] [place] [facility] 2022-04-22 2022-04-22 Telephone [facility] [id number] Univers 00:00:00 00:00:00 Pat A MULTISPEC 350.1.13.10 [id number] [id number] [address] [facility]IC 2022-04-21 2022-04-21 [facility] [id number] Univers 08:00:00 08:00:00 PAT ity o f [facility] 2022-03-15 2022-03-15 [facility] [id number] Univers 00:00:00 00:00:00 Pat A MULTISPEC 350.1.13.10 ity of IALTY [id number] [facility] [id number] [address] [facility] 2022-01-21 2022-01-21 [facility] [id number] Univers 12:23:00 23:59:00 Encounter Adilia Clayton RODNEY 350.1.13.10 ity of HOSPITAL 4.2.7.2.686 [facility] [id number] [place] [address] [address] 2022-01-21 2022-01-21 Outpatient R [facility] [id number] Univers 00:00:00 00:00:00 PAT ity o f [facility] 2021-09-10 2021-09-10 [facility] [id number] Univers 00:00:00 00:00:00 Carina-Eder PRIMARY [id number] [id number] [id number] [place]ical [address] 2021-08-02 2021-08-02 [facility] YESENIA [id number] Univers 11:53:00 23:59:00 Encounter Pat A RODNEY 350.1.13.10 ity of HOSPITAL 4.2.7.2.686 [place] [id number] [facility] [address] 2021-08-02 2021-08-02 [facility] [id number] Univers 00:00:00 23:59:00 PAT [facility] [place] 2021-08-02 2021-08-02 Outpatient R [facility] [id number] Univers 00:00:00 00:00:00 PAT ity o [facility] [place] [place] 2021-08-02 2021-08-02 Abstract [facility] 1.2.973.566 [id number] [id number] Univers 00:00:00 00:00:00 Pat A MULTISPEC 350.1.13.10 [place] [id number] [address] [facility] 2021-07-30 2021-07-30 Abstract [facility] 1.2.529.275 [id number] 3566 Univers 00:00:00 00:00:00 Pat A MULTISPEC 350.1.13.10 [place] [facility] [id number] [address] [facility] 2021-07-28 2021-07-28 [facility] 1.2.571.558 8380 8676 Univers 12:38:00 23:59:00 Encounter Pat A RODNEY 350.1.13.10 ity of [facility] 4.2.7.2.686 [place] as [id number] [facility] [address] 2021-07-28 2021-07-28 Outpatient R [facility] ACO [id number] Univers 00:00:00 00:00:00 ity of [facility] 2021-07-09 2021-07-09 Letter [facility] 1.2.840.114 [id number] Univers 00:00:00 00:00:00 (Out) Adilia Clayton MULTISPEC 350.1.13.[address] [facility] [place] [id number] [facility] [place] [address] [facility] 2021-04-22 2021-04-22 [employer] [facility] UNIVERSIT 1.2.840.114 [id number] Univers 11:34:18 11:49:18 [facility] 350.1.13.10 it[place] of CL[place]ICS [place] [id number] [facility] [address] 2021-04-22 2021-04-22 Office [facility], UNIVERSIT 1.2.700.190 [id number] [id number] 10:30:14 11:33:56 Visit [facility] 350.1.13.10 CLINICS 4.2.7.2.686 [id number] 189 2021-04-22 2021-04-22 Office [facility], UNIVERSIT 1.2.419.630 1585 [id number] [facility] 10:30:14 11:33:56 Visit [facility] 350.1.13.10 i ty of CLINICS [place] [id number] [facility] [address] 2021-04-22 2021-04-22 Outpatient R DESIRAE [facility] [id number] Univers 10:45:00 10:45:00 TEODORA itsandhya [facility] 2021-04-21 2021-04-21 Telephone [facility] 1.2.840.114 [id number] Univers 00:00:00 00:00:00 Adilia Clayton MULTISPEC 350.1.13.10 it[place] [id number] [facility] [address] [place] [facility] 2021-04-21 2021-04-21 [facility] 1.2.840.114 [id number] Univers 00:00:00 00:00:00 Pat A MULTISPEC 350.1.13.10 it[place] [id number] [facility] [address] [place] [facility] 2021-04-20 2021-04-20 [facility] 1.2.124.176 7187 [id number] Univers 00:00:00 00:00:00 Apt A MULTISPEC 350.1.13.10 it[place] [id number] [facility] [address] [place] [facility] 2021-04-07 2021-04-07 [facility] 1.2.514.669 8011 6723 Univers 11:37:00 23:59:00 Encounter Pat A RODNEY 350.1.13.10 ity of HOSPITAL 4.2.7.2.[address] [place] [id number] 2021-04-07 2021-04-07 Outpatient R [facility] ACO [id number] Univers 00:00:00 00:00:00 PAT ity o f [facility] 2021-04-01 2021-04-01 [facility] 1.2.394.182 [id number] 7483 Univers 10:38:32 23:59:00 Encounter Pat A SPECIALTY 350.1.13.10 ity of CARE 4.2.7.2.686 [facility] AT [id number] Il mario READ 805 [facility] 2021-04-01 2021-04-01 Outpatient [facility] [id number] Univers 12:00:00 12:00:00 PAT ity o f [facility] 2021-04-01 2021-04-01 [facility] 1.2.178.275 [id number] 7481 Univers 10:37:49 10:37:49 Encounter Pat A SPECIALTY 350.1.13.10 ity [place] [phone] Il mario READ 805 [facility] 2021-04-01 2021-04-01 [facility] 1.2.571.075 0534 7482 Univers 10:37:17 10:37:17 Encounter Pat A SPECIALTY 350.1.13.10 ity of C[place].2.[place].2.[place] AT [id number] Il mario READ 805 [facility] 2021-04-01 2021-04-01 [facility] 1.2.038.853 7613 7480 Univers 10:36:10 10:36:10 Encounter Pat A SPECIALTY 350.1.13.10 ity of [place] AT [id number] Il mario READ [address] [place] [address] 2021-03-29 2021-03-29 Telephone Gómez-Gabinou [facility] 1.2.840.114 [id number] Univers 00:00:00 00:00:00 Dionne carballo MULTISPEC 350.1.13.10 it[place] of [place] [id number] Norbert Flaherty [address] [facility] 2021-03-25 2021-03-25 Outpatient [facility] [id number] Univers 12:00:00 12:00:00 PAT ity o f [facility] 2021-03-25 2021-03-25 Abstract Gamilla-Cru [facility] 1.2.840.114 [id number] Univers 00:00:00 00:00:00 Dionne carballo MULTISPEC 350.1.13.10 it[place] [id number] Norbert [facility] [place] [address] [place] [facility] 2021-03-16 2021-03-16 Outpatient R [facility] [id number] Univers 10:00:00 10:00:00 PAT ity o f [facility] 2021-02-19 2021-02-19 Telephone [facility] 1.2.840.114 [id number] Univers 00:00:00 00:00:00 Pat A MULTISPEC 350.1.13.10 ity of IALTY 4.2.7.2.686 [facility] [id number] [facility] [address] [facility] 2021-02-18 2021-02-18 Outpatient R [facility] [id number] Univers 11:00:00 11:00:00 PAT ity o [facility] 2021-02-03 2021-02-03 Abstract [facility] 1.2.895.407 [id number] 0411 Univers 00:00:00 00:00:00 Pat A MULTISPEC 350.1.13.10 ity of IALTY 4.2.7.2.686 [facility] [id number] [address] [facility] 2021-01-21 2021-01-21 Outpatient R [facility] [id number] Univers 08:00:00 08:00:00 PAT ity o [facility] 2021-01-08 2021-01-08 Letter [facility] 1.2.840.114 [id number] Univers 00:00:00 00:00:00 (Out) Pat A MULTISPEC 350.1.13.10 ity of IALTY 4.2.7.2.686 [facility] [id number] [address] [facility]INIC 2021-01-06 2021-01-06 Telephone [facility] 1.2.840.114 [id number] Univers 00:00:00 00:00:00 Pat A MULTISPEC 350.1.13.10 [place] [id number] [address] [facility]ES [facility]INIC 2020-12-18 2020-12-18 Telephone [facility] 1.2.840.114 [id number] Univers 00:00:00 00:00:00 Pat A MULTISPEC 350.1.13.10 it[place] [id number] [address] [facility] 2020-12-17 2020-12-17 Outpatient R [facility] [id number] Univers 08:00:00 08:00:00 PAT ity o f [facility] 2020-12-01 2020-12-01 Telephone [facility] 1.2.840.114 [id number] Univers 00:00:00 00:00:00 Pat A MULTISPEC 350.1.13.10 ity of [place] 4.2.7.2.[place] [facility] [id number] [facility] [address] [place] [facility] 2020-11-12 2020-11-12 [facility] 1.2.840.114 [id number] Univers 00:00:00 00:00:00 Pat A MULTISPEC 350.1.13.10 ity of [place].2.[place].2.[place] [facility] [id number] [facility] [address] [place] [facility] 2020-11-12 2020-11-12 [facility] 1.2.359.066 [id number] [id number] Univers 00:00:00 00:00:00 Pat A MULTISPEC 350.1.13.10 it[place] [id number] [facility] [address] [place] [facility] 2020-10-30 2020-10-30 [facility] 1.2.943.128 [id number] [id number] Univers 14:23:00 23:59:00 Encounter Adilia A RODNEY 350.1.13.10 ity of [facility] 4.2.7.2.686 [place] [id number] [place] [address] 2020-10-30 2020-10-30 Outpatient R [facility] A[facility] [id number] 2199 Univers 00:00:00 00:00:00 PAT carole valdes [facility] 2020-08-28 2020-08-28 Abstract [facility] 1.2.927.866 [id number] Univers 00:00:00 00:00:00 Pat Forrest M[facility]ISPEC [facility].13.10 [facility] 4.2.7.2.[facility] [id number] [address] DIABETES CLINIC 2020-08-06 2020-08-13 [facility] [id number] Memoria 18:41:30 00:50:[address] 2020-08-06 2020-08-13 Inpatient [facility] [id number] Memoria 18:41:30 00:50:00 r [place] [address] [place] [address] 2020-08-06 2020-08-12 Inpatient E YU TESFAYE MED 7512 MHBL 20:29:00 18:50:00 SHANNA 2020-08-06 2020-08-12 Outpatient Brien, MHPL MHPL [id number] 13:41:30 18:50:00 [facility] 2020-08-06 2020-08-06 Outpatient Paulo Hong MHPL MHPL [id number] 13:41:30 13:41:30 [place] [address] 2020-07-27 2020-07-27 Outpatient R [place] [facility] [id number] Univers 14:30:00 14:30:00 ity [facility] 2020-07-24 2020-07-24 Emergency [facility] 18917 [id number] Memoria 12:53:57 16:22:00 r Marlo 11 [facility] 2020-07-24 2020-07-24 Emergency [facility] 56888 73732 Memoria 12:53:57 16:22:00 r Marlo 11 [facility] 2020-07-24 2020-07-24 Outpatient Hugo MHPL MHPL [id number] 07:53:57 11:22:00 Cecy 2020-07-24 2020-07-24 Emergency E HUGO BL MHBL 7511 MHBL 07:53:00 11:22:00 , CECY 2020-07-06 2020-07-15 Inpatient [facility] [id number] Memoria 10:06:46 22:00:00 r Marlo 10 l [facility] 2020-07-06 2020-07-15 Inpatient [facility] [id number] Memoria 10:06:46 22:00:00 r Marlo 10 [facility] 2020-07-06 2020-07-15 Outpatient BHAVIN Tesfaye MHPL [id number] 05:06:46 17:00:00 Shanna 10 2020-07-06 2020-07-06 Inpatient E REBEL, BL MED 7510 MHBL 08:50:00 05:06:00 MELIZA 2020-06-24 2020-06-24 Transition Linda Green 1.2.840.114 [id number] Univers 00:00:00 00:00:00 of Care Jair Davila 350.1.13.10 it[place] of [place] [id number] [facility] [address] 2020-06-20 2020-06-23 [facility] 1.2.840.1 14 [id number] Univers 14:27:00 18:40:00 Encounter Pam Louis 350.1.13.10 ity of [facility] 4.2.7.2.686 [place] [id number] [facility] [address] 2020-05-21 2020-05-21 Emergency [facility] [id number] Memoria 13:09:59 15:59:00 r Marlo 09 [facility] 2020-05-21 2020-05-21 Emergency [facility] [id number] Memoria 13:09:59 15:59:00 r Marlo 09 [facility] 2020-05-21 2020-05-21 Outpatient BHAVIN Rachel MHPL [id number] 08:09:59 10:59:00 Trevor Magnolia [place] 2020-05-21 2020-05-21 Emergency E YU RACHEL BL 7509 MHBL 08:09:00 10:59:00 TREVOR 2020-05-13 2020-05-13 Juan Luis Sharif [facility] 1.2.332.532 [id number] Univers 00:00:00 00:00:00 Management Omid KANCHAN 350.1.13.10 ity of SCIENCES 4.2.7.2.686 [place] BLDG [id number] [facility] [address] 2020-05-13 2020-05-13 Telephone [place] [facility] 1.2.840.114 [id number] Univers 00:00:00 00:00:00 Winsons SPECIALTY 350.1.13.10 ity [place] C[place] AT [id number] Il mario READ 2 [facility] 2020-05-01 2020-05-01 Abstract Pretty [facility] 1.2.069.158 [id number] [id number] Univers 00:00:00 00:00:00 Adilia Clayton MULTISPEC 350.1.13.10 it[place] [id number] [facility] [place] [address] [place] [facility] 2020-04-28 2020-04-28 [facility] 1.2.840.114 [id number] Univers 11:00:00 23:59:00 Encounter Paulina Ulrich SPECIALTY 350.1.13.10 ity [place] AT [phone] Il mario READ 801 [facility] 2020-04-28 2020-04-28 Outpatient R [place] [facility] [id number] Univers 15:30:00 15:30:00 ity of [facility] 2020-04-28 2020-04-28 Telemedici James [facility] 1.2.840.114 [id number] Univers 07:00:15 07:30:15 ne Visit Corby SPECIALTY 350.1.13.10 ity [place] C[place]2.[place] AT [id number] Il mario READ [address] [place] [address] 2020-04-23 2020-04-23 Orders Doctor PATTERSON 1.2.840.114 [id number] Univers 00:00:00 00:00:00 Only Unassigned, RODNEY 350.1.13.10 ity of [facility] 4.2.7.2.686 [place] as [id number] [facility] [address] 2020-04-21 2020-04-21 Telephone [facility] 1.2.619.384 [id number] [id number] Univers 00:00:00 00:00:00 Teodora SPECIALTY 350.1.13.10 ity of C[place] AT [id number] Il cristianany ISAURO 189 [facility] 2020-04-06 2020-04-06 Abstract [facility] 1.2.105.183 5062 2164 Univers 00:00:00 00:00:00 Adilia Clayton MULTISPEC 350.1.13.10 ity [place] [id number] [address] [facility] 2020-04-01 2020-04-01 Transition Linda Green 1.2.840.114 [id number] Univers 00:00:00 00:00:00 of Care Jair Clayton Davila 350.1.13.10 [place] [id number] [facility] [address] 2020-03-23 2020-03-30 Inpatient U [facility] STX [id number] Univers 12:01:00 16:00:00 RUPAK ity of [facility] 2020-03-23 2020-03-30 [facility] Black Janee 1.2.840.114 [id number] Univers 12:01:00 16:00:00 Encounter Ruanak Shakir Terrazas 350.1.13.10 ity of Hospital 4.2.7.2.686 [place] [id number] [facility] [address] 2020-03-30 2020-03-30 Telephone [facility] 1.2.208.469 [id number] Univers 00:00:00 00:00:00 Teodora MULTISPEC 350.1.13.10 it[place] [id number] [address] [facility] 2020-03-30 2020-03-30 Case YESENIA Enriquez 1.2.435.003 9067 8579 Univers 00:00:00 00:00:00 Management Anna TERRAZAS 350.1.13.10 ity [facility] 4.2.7.2.686 [place] Neela [id number] [facility] [address] 2020-03-23 2020-03-23 [facility] [id number] [id number] Memoria 05:18:16 15:31:00 r Marlo [address] [place] [address] 2020-03-23 2020-03-23 [facility] [id number] Memoria 05:18:16 15:31:[address] 2020-03-23 2020-03-[address] [place] [id number] 00:18:16 10:31:00 Megha [place] [address] 2020-03-23 2020-03-23 Emergency E TERESA MHBL MHBL 7508 MHBL 00:18:00 10:31:00 [facility] 2020-03-17 2020-03-17 [facility] YESENIA Eldridge 1.2.840.114 [id number] Univers 09:23:34 23:59:00 Encounter Ramses TERRAZAS 350.1.13.10 ity of [facility] 4.2.7.2.686 [place] [id number] [facility] [address] 2020-03-13 2020-03-13 PRATEEK MarsIT 1.2.463.328 [id number] [id number] Univers 00:00:00 00:00:00 Management [facility] 350.1.13.10 ity of [facility] 4.2.7.2.[place] [id number] [facility] [address] 2020-03-12 2020-03-12 Outpatient Adalberto [facility] [id number] Univers 13:30:00 13:30:00 TEODORA lam [facility] 2020-03-12 2020-03-12 TelemedicPRATEEK Da SilvaIT 1.2.840.114 [id number] Univers 12:21:58 12:51:58 ne Visit [facility] 350.1.13.10 ity of CLINICS 4.2.7.2.[place] [id number] [facility] [address] 2020-03-05 2020-03-05 Hospital Janee Merrill 1.2.840.114 [id number] Univers 10:50:00 17:31:00 Encounter Teodora Terrazas 350.1.13.10 ity of Hospital 4.2.7.2.686 [place] [id number] [facility] [address] 2020-03-05 2020-03-05 Orders Doctor YESENIA 1.2.840.114 [id number] Univers 00:00:00 00:00:00 Only Unassigned, RODNEY 350.1.13.10 ity of [facility] 4.2.7.2.686 [place] [id number] [facility] [address] 2020-03-04 2020-03-04 Laboratory Only, Adc Test [facility] 1.2.840. 114 [id number] Univers 15:20:13 15:35:13 Only Teodora Merrill 350.1.13.10 ity of [place]2.[place].2.[place] [facility] [id number] Il dical nal [address] [facility] 2020-03-04 2020-03-04 Outpatient R DESIRAE [facility] [id number] Univers 15:00:00 15:00:00 TEODORA itsandhya of [facility] 2020-02-13 2020-02-13 Case [facility] 1.2.840.114 [id number] Univers 00:00:00 00:00:00 Management Clayton JORDAN 350.1.13.[address] [facility] 4.2.7.2.[place] [facility] [id number] [facility] AND [place] [address] [facility] 2020-02-03 2020-02-03 Emergency nullFlavo [facility] [id number] Memoria 19:07:14 23:44:00 adalberto encarnacion [facility] 2020-02-03 2020-02-03 Emergency [facility] 10267 [id number] Memoria 19:07:14 23:44:00 adalberto encarnacion [facility] 2020-02-03 2020-02-03 Outpatient BHAVIN Faulkner THALIA [id number] 14:07:14 18:44:00 Marci French 07 2020-02-03 2020-02-03 Emergency E [facility] 7507 [facility] 14:07:00 18:44:00 MARCI 2020-01-22 2020-01-22 Abstract [facility] 1.2.538.676 [id number] Univers 00:00:00 00:00:00 Adilia A MULTISPEC 350.1.13.10 ity of [place].2.[place] [facility] [id number] [address] [facility] 2020-01-08 2020-01-08 [facility] YESENIA 1.2.840.114 [id number] [facility] 11:14:48 23:59:00 Encounter Ramses TERRAZAS 350.1.13.10 ity of [facility] 4.2.7.2.686 [facility] [place] [facility] [id number] [address] 2020-01-08 2020-01-08 [facility] [id number] [id number] Univers 00:00:00 00:00:00 RAMSES lam o f [facility] 2019-12-19 2019-12-19 Abstract [facility] 1.2.488.597 [id number] Univers 00:00:00 00:00:00 Adilia Clayton MULTISPEC 350.1.13.10 ity of IALTY 4.2.7.2.686 [facility] [id number] [address] [facility] 2019-12-18 2019-12-18 Telephone [facility] 1.2.830.585 [id number] [id number] Univers 00:00:00 00:00:00 Clayton MULTISPEC 350.1.13.10 ity of IALTY 4.2.7.2.686 [facility] s [place] [facility] [id number] [address] [facility] 2019-12-13 2019-12-13 Telephone [facility] 1.2.698.008 [id number] 4389 Univers 00:00:00 00:00:00 Teodora OSKAR 350.1.13.10 ity of CARE 4.2.7.2.686 [facility] AT [id number] Il mario READ 189 [facility] 2019-12-13 2019-12-13 [facility] 1.2.840.114 [id number] Univers 00:00:00 00:00:00 Management Teodora MULTISPEC 350.1.13.10 ity of IALTY 4.2.7.2.686 [facility] [id number] [address] [facility] 2019-12-10 2019-12-10 [facility] 1.2.840.114 [id number] Univers 00:00:00 00:00:00 Management Teodora MULTISPEC 350.1.13.10 ity of IALTY 4.2.7.2.686 [facility] [id number] [address] [facility] 2019-12-10 2019-12-10 [facility] 1.2.840.114 [id number] Univers 00:00:00 00:00:00 (Out) Pat A MULTISPEC 350.1.13.10 ity of IALTY 4.2.7.2.686 [facility] [id number] [address] [facility] 2019-12-10 2019-12-10 Abstract [facility] 1.2.758.657 [id number] 5674 Univers 00:00:00 00:00:00 Pat A MULTISPEC 350.1.13.10 ity of IALTY 4.2.7.2.686 [facility] [id number] [address] [facility] 2019-12-10 2019-12-10 Telephone [facility] 1.2.840.114 [id number] Univers 00:00:00 00:00:00 Pat A MULTISPEC 350.1.13.10 ity of IALTY 4.2.7.2.686 [facility] [id number] [address] [facility] 2019-12-10 2019-12-10 [facility] 1.2.840.114 [id number] Univers 00:00:00 00:00:00 Pat A MULTISPEC 350.1.13.10 [place] [id number] [address] [facility] 2019-12-10 2019-12-10 Telephone [facility] 1.2.840.114 [id number] Univers 00:00:00 00:00:00 Adilia Clyaton MULTISPEC 350.1.13.10 [place] [id number] [address] [facility] 2019-12-10 2019-12-10 Telephone [facility] 1.2.384.330 [id number] 5825 Univers 00:00:00 00:00:00 Teodora MULTISPEC 350.1.13.10 ity of IALTY 4.2.7.2.686 [facility] [id number] [address] [facility] 2019-11-19 2019-11-19 Telephone [facility] 1.2.599.486 [id number] Univers 00:00:00 00:00:00 Teodora MULTISPEC 350.1.13.10 [place] [id number] [address] [facility] 2019-11-14 2019-11-14 Office Teodora Merrill [facility] 1.2.840.114 [id number] Univers 09:07:17 10:35:09 Visit PrettyJoshuaPat A MULTISPEC 350.1.13 .10 it[place] [id number] [address] [facility] 2019-11-07 2019-11-07 Office Angie Cleaning [facility] 1.2. 840.114 [id number] Univers 09:48:36 16:20:31 Visit PrettyAdilia MULTISPEC 350.1.13 .10 it[place] of [place].2.[place] [id number] [address] [facility] 2019-10-29 2019-11-06 [place] [id number] Memoria 00:57:20 02:15:00 r [place] 06 [facility] 2019-10-29 2019-11-06 Inpatient [facility] [id number] Memoria 00:57:20 02:15:00 r Mar[place] 06 [facility] 2019-10-28 2019-11-05 Outpatient Josué, MHPL MHPL [id number] 18:57:20 20:15:00 Redd 06 2019-10-30 2019-10-28 Inpatient E MHBL MED 7506 MHBL 14:55:00 23:23:00 2019-08-16 2019-08-20 Inpatient [facility] [id number] Memoria 00:36:00 19:40:00 r [place] 10 [facility] 2019-08-16 2019-08-20 Inpatient [facility] [id number] Memoria 00:36:00 19:40:00 r [place] 10 [facility] 2019-08-15 2019-08-20 Outpatient Lillie MHPL MHPL [id number] 18:36:00 13:40:00 Debi 10 2019-08-15 2019-08-14 Inpatient U MHBL MED 9310 MHBL 18:36:00 15:56:00 2019-07-08 2019-07-08 Committee [facility] 1.2.682.039 [id number] Univers 00:00:00 00:00:00 Review Teodora MULTISPEC 350.1.13.10 ity of [place] 4.2.7.2.686 [facility] [id number] [facility] [address] [place] DI[facility]ET[facility] 2019-07-08 2019-07-08 Abstract [facility] [id number] Univers 00:00:00 00:00:00 Adilia Clayton MULTISPEC 350.1.13.10 ity of [place] 4.2.7.2.686 [facility] s [facility] [id number] [facility] [address] [place] DI[facility] 2019-06-20 2019-06-20 Telephone [facility] [id number] Univers 00:00:00 00:00:00 Pat A MULTISPEC 350.1.13.10 [place] [id number] [address] [facility] 2019-06-17 2019-06-17 [facility] [id number] Univers 14:03:07 23:59:00 Encounter Pat A [place] 350.1.13.10 [place] [id number] [facility] [address] 2019-06-17 2019-06-17 Orders Doctor PATTERSON [id number] Univers 00:00:00 00:00:00 Only Unassigned, ROD[place] 350.1.13.10 ity of [place] [facility] 4.2.7.2.686 [place] [id number] [facility] [address] 2019-06-17 2019-06-17 Telephone [facility] [id number] Univers 00:00:00 00:00:00 Pat A MULTISPEC 350.1.13.10 [place] [facility] [id number] [facility] [address] [place] [facility] 2019-05-23 2019-05-23 Telephone [facility] 1.2.840.114 [id number] Univers 00:00:00 00:00:00 Pat A MULTISPEC 350.1.13.10 [place]2.[place] [id number] [address] [facility] 2019-05-21 2019-05-21 Telephone [facility] 1.2.840.114 [id number] Univers 00:00:00 00:00:00 Pat A MULTISPEC 350.1.13.10 [place]2.[place] [facility] [id number] [address] [facility] 2019-05-09 2019-05-09 Orders Doctor PATTERSON 1.2.840.114 [id number] Univers 00:00:00 00:00:00 Only Unassigned, RODNEY 350.1.13.10 ity of [facility] 4.2.7.2.686 [place] [id number] [address] 2019-04-06 2019-04-08 [facility] [id number] Memoria 01:14:00 21:53:00 r [place] 79 [facility] 2019-04-06 2019-04-08 [facility] [id number] Memoria 01:14:00 21:53:[address] 2019-04-05 2019-04-08 Outpatient Charles [facility]PL MHPL [id number] 20:14:00 16:53:00 Bandar 2018-10-17 2018-10-17 Outpatient R SYED RUST ACO [id number] [facility] 00:00:00 23:59:00 RAMSES valdes [facility] 2018-07-22 2018-07-24 [facility] [id number] Memoria 01:45:00 23:05:00 r [place] 05 [facility] 2018-07-22 2018-07-24 [facility] [id number] Memoria 01:45:00 23:05:[address] 2018-07-21 2018-07-24 Outpatient Starla MHPL MHPL [id number] 20:45:00 18:05:00 , Roger Vance Javier 2018-07-20 2018-07-21 [facility] [id number] Memoria 22:20:00 02:38:00 r [place] 04 [facility] 2018-07-20 2018-07-21 [facility] [id number] Memoria 22:20:00 02:38:[address] 2018-07-20 2018-07-20 Outpatient Hugo [facility]PL MHPL [id number] 17:20:00 21:38:00 Cecy 04 2018-05-23 2018-06-22 OP [facility] [id number] Memoria 14:47:00 04:59:00 Transplant r [address] 2018-05-23 2018-06-22 [facility] [id number] Memoria 14:47:00 04:59:00 Transplant r Center 00 [facility] 2018-05-23 2018-06-21 Outpatient De [facility] [id number] 09:47:00 23:59:00 Roosevelt Ledezma 2018-04-14 2018-04-15 Observatio [facility] [id number] Memoria 23:17:00 21:55:00 n adalberto Sellers 03 [facility] 2018-04-14 2018-04-15 [facility] [id number] Memoria 23:17:00 21:55:00 n adalberto Sellers 03 [facility] 2018-04-14 2018-04-15 Outpatient Ajibade, MHPL MHPL [id number] 18:17:00 16:55:00 David Vivian Valdezwale 2018-03-17 2018-03-20 [facility] [id number] Memoria 07:25:00 22:12:00 adalberto Sellers 02 [facility] 2018-03-17 2018-03-20 [facility] [id number] Memoria 07:25:00 22:12:00 adalberto Sellers 02 [facility] 2018-03-17 2018-03-20 Outpatient Sumner, MHPL MHPL [id number] 02:25:00 17:12:00 [place] 2018-01-22 2018-01-23 [facility] [id number] Memoria 23:36:00 03:58:00 adalberto Sellers [facility] 2018-01-22 2018-01-23 [facility] [id number] Memoria 23:36:00 03:58:00 adalberto Sellers [facility] 2018-01-22 2018-01-22 Outpatient Tawny, MHPL MHPL [id number] 18:36:00 22:58:00 Osvaldo Lee 2017-12-15 2017-12-20 [facility] [id number] Memoria 11:29:00 18:55:00 adalberto Sellers 00 [facility] 2017-12-15 2017-12-20 Inpatient [facility] [id number] Memoria 11:29:00 18:55:00 r Mar[place] 00 l [facility] 2017-12-15 2017-12-20 Outpatient Josué [facility] [id number] 05:29:00 13:55:00 Peter 00 Results Test Description Test Time Test Comments Results Result Comments Source CHEM PANEL 2020-08-12 09:42:00 Test Item Value Reference Range Interpretation Comme nts Glucose Lvl (test code = Glucose Lvl) 79 70-99 [facility]2020-11-04 09:42:00 Test Item Value Reference Range Interpretation Comments BUN (test code = BUN) 21 7-22 [place] 440190-11-04 09:42:00 Test Item Value Reference Range Interpretation Comments Creatinine Lvl (test code = Creatinine 7.93 0.50-1.40 Lvl) [facility]2020-11-04 09:42:00 Test Item Value Reference Range Interpretation Comments Sodium Lvl (test code = Sodium Lvl) 139 135-145 [facility]2020-11-04 09:42:00 Test Item Value Reference Range Interpretation Comments Potassium Lvl (test code = Potassium 3.2 3.5-5.1 Lvl) [facility]2020-11-04 09:42:00 Test Item Value Reference Range Interpretation Comments Chloride Lvl (test code = Chloride Lvl) 104 95-109 [facility]2020-11-04 09:42:00 Test Item Value Reference Range Interpretation Comments CO2 (test code = CO2) 27 24-32 [facility]2020-11-04 09:42:00 Test Item Value Reference Range Interpretation Comments Calcium Lvl (test code = Calcium Lvl) 8.8 8.5-10.5 [facility]2020-11-04 09:42:00 Test Item Value Reference Range Interpretation Comments AGAP (test code = AGAP) 11.2 10.0-20.0 [facility]2020-11-04 09:42:00 Test Item Value Reference Range Interpretation Comments eGFR (test code = eGFR) 7 [facility]imytpnAVWRSDALRW1431-72-63 09:42:00 Test Item Value Reference Range Interpretation Comments Neutrophils # (test code = Neutrophils 4.7 1.5-8.1 #) [facility] CenterYuggtusUMUHMQMXVB9539-56-51 09:42:00 Test Item Value Reference Range Interpretation Comments Lymphocytes # (test code = Lymphocytes 1.2 1.0-5.5 #) [facility] CenterNxuemjbRKLUGPKFVO0691-77-97 09:42:00 Test Item Value Reference Range Interpretation Comments Monocytes # (test code 0.2 See_Comment [Aut omated message] The = Monocytes #) system which generated this result tra nsmitted reference range : <=0.8. The reference r yared was not used to int erpret this result as normal/abnormal . [facility] CenterZkymfgpLKGXDXPDWW7756-60-67 09:42:00 Test Item Value Reference Range Interpretation Comments Eosinophils # (test code 0.2 See_Comment [A utomated message] The = Eosinophils #) system whic h generated this result tra nsmitted reference range : <=0.5. The reference r yared was not used to int erpret this result as normal/abnormal . [facility] CenterJdoiymbLFGJDMONFW2709-30-14 09:42:00 Test Item Value Reference Range Interpretation Comments Segs (test code = Segs) 71.0 45.0-75.0 [facility] CenterNumxxbqWDIEGTLLEP2654-91-51 09:42:00 Test Item Value Reference Range Interpretation Comments Bands (test code = 2.0 See_Comment [Automat ed message] The Bands) system which ge nerated this result transmit emerson reference range : <=11.0. The reference r yared was not used to interpr et this result as erinn l/abnormal. [facility] CenterUofyotqRFXHRGITYH4239-40-08 09:42:00 Test Item Value Reference Range Interpretation Comments Lymphocytes (test code = Lymphocytes) 18.0 20.0-40.0 [place] 031030-11-04 09:42:00 Test Item Value Reference Range Interpretation Comments Monocytes (test code = Monocytes) 3.0 2.0-12.0 [place] [address]-11-04 09:42:00 Test Item Value Reference Range Interpretation Comments Eosinophils (test code = 3.0 See_Comment [A utomated message] The Eosinophils) system which ge nerated this result tra nsmitted reference range : <=4.0. The reference r yared was not used to int erpret this result as normal/abnormal . [place] [address]-11-04 09:42:00 Test Item Value Reference Range Interpretation Comments Metamyelocytes (test code 2.0 See_Comment [ Automated message] = Metamyelocytes) The system which generated this result transmitted ref erence range: <=1.0. T he reference range was not used to int erpret this result as normal/abnormal . [facility] CenterNgxjajoZDHVQOVNZN0183-49-31 09:42:00 Test Item Value Reference Range Interpretation Comments Myelocytes (test code = Myelocytes) 1.0 [facility] CenterWutvetmEGCYMLDSCM6283-25-99 09:42:00 Test Item Value Reference Range Interpretation Comments Atypical Lymphs (test code = Atypical 0.0 Lymphs) [facility] CenterZsxfobgFQXYCWYMJV3444-26-81 09:42:00 Test Item Value Reference Range Interpretation Comments NRBC (test code = NRBC) 1 [facility] CenterCvdwklzZIIOGXNULJ9067-74-32 09:42:00 Test Item Value Reference Range Interpretation Comments RBC Morph (test code = Normal (08/12/20 3:42 RBC Morph) AM) [facility] CenterUwepmzmHNKZFNTISI1287-15-25 09:42:00 Test Item Value Reference Range Interpretation Comments Plt Morph (test code = Normal (08/12/20 3:42 Plt Morph) AM) [facility] CenterWubybwsCVUVOTKDNB2491-69-22 09:42:00 Test Item Value Reference Range Interpretation Comments Tot Cell Ct (test code = Tot Cell Ct) 100 1 [facility] CenterBfmspcxOZSBXADQGQ6581-37-84 09:42:00 Test Item Value Reference Range Interpretation Comments Polychrom (test code = Moderate *ABN*(08/12/20 Polychrom) 3:42 AM) [facility] CenterVtklnfrRPIMDMWGDG7932-59-72 09:42:00 Test Item Value Reference Range Interpretation Comments WBC (test code = WBC) 6.4 3.7-10.4 [facility] CenterGdsuaijBMYSXUXNIF9676-93-80 09:42:00 Test Item Value Reference Range Interpretation Comments RBC (test code = RBC) 3.02 4.70-6.10 [facility] CenterRlzevbuDLFUBYFQGD5916-40-64 09:42:00 Test Item Value Reference Range Interpretation Comments Hgb (test code = Hgb) 9.0 14.0-18.0 [facility] CenterOrtycizPXLRRVJZXA3966-12-37 09:42:00 Test Item Value Reference Range Interpretation Comments Hct (test code = Hct) 25.9 42.0-54.0 [place] [address]-11-04 09:42:00 Test Item Value Reference Range Interpretation Comments MCV (test code = MCV) 85.7 80.0-94.0 [place] [address]-11-04 09:42:00 Test Item Value Reference Range Interpretation Comments MCH (test code = MCH) 30.0 pg 27.0-31.0 [place] [address]-11-04 09:42:00 Test Item Value Reference Range Interpretation Comments MCHC (test code = MCHC) 34.9 32.0-36.0 [place] [address]-11-04 09:42:00 Test Item Value Reference Range Interpretation Comments RDW (test code = RDW) 14.8 11.5-14.5 [place] [address]-11-04 09:42:00 Test Item Value Reference Range Interpretation Comments Platelet (test code = Platelet) 169 133-450 [place] [address]-11-04 09:42:00 Test Item Value Reference Range Interpretation Comments MPV (test code = MPV) 7.0 7.4-10.4 [facility]2020-11-04 09:42:00 Test Item Value Reference Range Interpretation Comments Glucose Lvl (test code = Glucose Lvl) 79 70-99 [facility]2020-11-04 09:42:00 Test Item Value Reference Range Interpretation Comments BUN (test code = BUN) 21 7-22 [place] 440190-11-04 09:42:00 Test Item Value Reference Range Interpretation Comments Creatinine Lvl (test code = Creatinine 7.93 0.50-1.40 Lvl) [place] 440190-11-04 09:42:00 Test Item Value Reference Range Interpretation Comments Sodium Lvl (test code = Sodium Lvl) 139 135-145 [facility]2020-11-04 09:42:00 Test Item Value Reference Range Interpretation Comments Potassium Lvl (test code = Potassium 3.2 3.5-5.1 Lvl) [facility]2020-11-04 09:42:00 Test Item Value Reference Range Interpretation Comments Chloride Lvl (test code = Chloride Lvl) 104 95-109 [place] 440190-11-04 09:42:00 Test Item Value Reference Range Interpretation Comments CO2 (test code = CO2) 27 24-32 [place] [address]-11-04 09:42:00 Test Item Value Reference Range Interpretation Comments Calcium Lvl (test code = Calcium Lvl) 8.8 8.5-10.5 [place] 440190-11-04 09:42:00 Test Item Value Reference Range Interpretation Comments AGAP (test code = AGAP) 11.2 10.0-20.0 [place] [address]-11-04 09:42:00 Test Item Value Reference Range Interpretation Comments eGFR (test code = eGFR) 7 [place] 031030-11-04 09:42:00 Test Item Value Reference Range Interpretation Comments Neutrophils # (test code = Neutrophils 4.7 1.5-8.1 #) [place] [address]-11-04 09:42:00 Test Item Value Reference Range Interpretation Comments Lymphocytes # (test code = Lymphocytes 1.2 1.0-5.5 #) [place] [address]-11-04 09:42:00 Test Item Value Reference Range Interpretation Comments Monocytes # (test code 0.2 See_Comment [Aut omated message] The = Monocytes #) system which generated this result tra nsmitted reference range : <=0.8. The reference r yared was not used to int erpret this result as normal/abnormal . [place] [address]-11-04 09:42:00 Test Item Value Reference Range Interpretation Comments Eosinophils # (test code 0.2 See_Comment [A utomated message] The = Eosinophils #) system whic h generated this result tra nsmitted reference range : <=0.5. The reference r yared was not used to int erpret this result as normal/abnormal . [place] [address]-11-04 09:42:00 Test Item Value Reference Range Interpretation Comments Segs (test code = Segs) 71.0 45.0-75.0 [place] [address]-11-04 09:42:00 Test Item Value Reference Range Interpretation Comments Bands (test code = 2.0 See_Comment [Automat ed message] The Bands) system which ge nerated this result transmit emerson reference range : <=11.0. The reference r yared was not used to interpr et this result as erinn l/abnormal. [facility] CenterQetyyzpCXOJSAAWFB0216-36-55 09:42:00 Test Item Value Reference Range Interpretation Comments Lymphocytes (test code = Lymphocytes) 18.0 20.0-40.0 [facility] CenterIldrmyoVTKJMLUJQG6295-93-51 09:42:00 Test Item Value Reference Range Interpretation Comments Monocytes (test code = Monocytes) 3.0 2.0-12.0 [facility] CenterZacxatgHDZQBPDHNX5381-10-97 09:42:00 Test Item Value Reference Range Interpretation Comments Eosinophils (test code = 3.0 See_Comment [A utomated message] The Eosinophils) system which ge nerated this result tra nsmitted reference range : <=4.0. The reference r yared was not used to int erpret this result as normal/abnormal . [facility] CenterJgismwoALBZQINZFL7195-82-53 09:42:00 Test Item Value Reference Range Interpretation Comments Metamyelocytes (test code 2.0 See_Comment [ Automated message] = Metamyelocytes) The system which generated this result transmitted ref erence range: <=1.0. T he reference range was not used to int erpret this result as normal/abnormal . [facility] CenterMircbykWFBDTAPGPL7545-21-96 09:42:00 Test Item Value Reference Range Interpretation Comments Myelocytes (test code = Myelocytes) 1.0 [facility] CenterTvmlvqxEPFSHKTXGD8316-95-73 09:42:00 Test Item Value Reference Range Interpretation Comments Atypical Lymphs (test code = Atypical 0.0 Lymphs) [facility] CenterEuipcmmSDZNTXGQDH2906-39-64 09:42:00 Test Item Value Reference Range Interpretation Comments NRBC (test code = NRBC) 1 [facility] CenterUqupfusAGVRXJMIBX9863-47-03 09:42:00 Test Item Value Reference Range Interpretation Comments RBC Morph (test code = Normal (08/12/20 3:42 RBC Morph) AM) [facility] CenterBeisspfSAAGZHQNMM9102-63-11 09:42:00 Test Item Value Reference Range Interpretation Comments Plt Morph (test code = Normal (08/12/20 3:42 Plt Morph) AM) [facility] CenterNoffljiDZGREEIVFS6646-23-01 09:42:00 Test Item Value Reference Range Interpretation Comments Tot Cell Ct (test code = Tot Cell Ct) 100 1 [facility] CenterEnfplhcTDVKPWCANU7482-21-23 09:42:00 Test Item Value Reference Range Interpretation Comments Polychrom (test code = Moderate *ABN*(08/12/20 Polychrom) 3:42 AM) [facility] CenterMekrvtoSZUBXDKTEI5323-02-89 09:42:00 Test Item Value Reference Range Interpretation Comments WBC (test code = WBC) 6.4 3.7-10.4 [facility] CenterVaxpdujSDIOOVGCTR6176-36-71 09:42:00 Test Item Value Reference Range Interpretation Comments RBC (test code = RBC) 3.02 4.70-6.10 [facility] CenterRtymrmbAKAAGYTOQH1440-69-34 09:42:00 Test Item Value Reference Range Interpretation Comments Hgb (test code = Hgb) 9.0 14.0-18.0 [facility] CenterToxkiwdRPAZOOWXWD1714-26-16 09:42:00 Test Item Value Reference Range Interpretation Comments Hct (test code = Hct) 25.9 42.0-54.0 [facility] CenterJsujhjpCZMZOXFQOM3203-38-90 09:42:00 Test Item Value Reference Range Interpretation Comments MCV (test code = MCV) 85.7 80.0-94.0 [facility] CenterKhrktkaNFLJQNQASD6203-87-87 09:42:00 Test Item Value Reference Range Interpretation Comments MCH (test code = MCH) 30.0 pg 27.0-31.0 [facility] CenterTjcpulcKNFKQIUWFN2159-55-14 09:42:00 Test Item Value Reference Range Interpretation Comments MCHC (test code = MCHC) 34.9 32.0-36.0 [facility] CenterNcfsjlvBHGFSXLYUT2721-85-25 09:42:00 Test Item Value Reference Range Interpretation Comments RDW (test code = RDW) 14.8 11.5-14.5 [facility] CenterFgqebzaZGDZZRWRVA4372-49-28 09:42:00 Test Item Value Reference Range Interpretation Comments Platelet (test code = Platelet) 169 133-450 [facility] CenterMvegiokQBWJACYNNS5988-17-43 09:42:00 Test Item Value Reference Range Interpretation Comments MPV (test code = MPV) 7.0 7.4-10.4 [facility]2020-11-03 09:35:00 Test Item Value Reference Range Interpretation Comments Glucose Lvl (test code = Glucose Lvl) 80 70-99 [facility]2020-11-03 09:35:00 Test Item Value Reference Range Interpretation Comments BUN (test code = BUN) 13 7-22 [place] [address]-11-03 09:35:00 Test Item Value Reference Range Interpretation Comments Creatinine Lvl (test code = Creatinine 5.51 0.50-1.40 Lvl) [place] 440190-11-03 09:35:00 Test Item Value Reference Range Interpretation Comments Sodium Lvl (test code = Sodium Lvl) 140 135-145 [place] 440190-11-03 09:35:00 Test Item Value Reference Range Interpretation Comments Potassium Lvl (test code = Potassium 3.2 3.5-5.1 Lvl) [place] [address]-11-03 09:35:00 Test Item Value Reference Range Interpretation Comments Chloride Lvl (test code = Chloride Lvl) 105 95-109 [place] [address]-11-03 09:35:00 Test Item Value Reference Range Interpretation Comments CO2 (test code = CO2) 28 24-32 [place] [address]-11-03 09:35:00 Test Item Value Reference Range Interpretation Comments Calcium Lvl (test code = Calcium Lvl) 8.4 8.5-10.5 [place] [address]-11-03 09:35:00 Test Item Value Reference Range Interpretation Comments AGAP (test code = AGAP) 10.2 10.0-20.0 [place] [address]-11-03 09:35:00 Test Item Value Reference Range Interpretation Comments eGFR (test code = eGFR) 10 [place] [address]-11-03 09:35:00 Test Item Value Reference Range Interpretation Comments Segs (test code = Segs) 68.4 45.0-75.0 [place] [address]-11-03 09:35:00 Test Item Value Reference Range Interpretation Comments Lymphocytes (test code = Lymphocytes) 17.8 20.0-40.0 [place] [address]-11-03 09:35:00 Test Item Value Reference Range Interpretation Comments Monocytes (test code = Monocytes) 9.3 2.0-12.0 [place] [address]-11-03 09:35:00 Test Item Value Reference Range Interpretation Comments Eosinophils (test code = 3.7 See_Comment [A utomated message] The Eosinophils) system which ge nerated this result tra nsmitted reference range : <=4.0. The reference r yared was not used to int erpret this result as normal/abnormal . [facility] CenterXtnfzfrHRMFDGJROG0118-60-14 09:35:00 Test Item Value Reference Range Interpretation Comments Basophils (test code = 0.8 See_Comment [Aut omated message] The Basophils) system which ge nerated this result tra nsmitted reference range : <=1.0. The reference r yared was not used to int erpret this result as normal/abnormal . [facility] CenterMlnhganUWSBBGNFNV1527-62-32 09:35:00 Test Item Value Reference Range Interpretation Comments Neutrophils # (test code = Neutrophils 4.1 1.5-8.1 #) [facility] CenterVmxqngdCONERGUADN3944-36-91 09:35:00 Test Item Value Reference Range Interpretation Comments Lymphocytes # (test code = Lymphocytes 1.1 1.0-5.5 #) [facility] CenterYviufgeCRDOFSJNTE7057-75-01 09:35:00 Test Item Value Reference Range Interpretation Comments Monocytes # (test code 0.6 See_Comment [Aut omated message] The = Monocytes #) system which generated this result tra nsmitted reference range : <=0.8. The reference r yared was not used to int erpret this result as normal/abnormal . [facility] CenterVkidujvSHECVGICLQ6703-15-66 09:35:00 Test Item Value Reference Range Interpretation Comments Eosinophils # (test code 0.2 See_Comment [A utomated message] The = Eosinophils #) system whic h generated this result tra nsmitted reference range : <=0.5. The reference r yared was not used to int erpret this result as normal/abnormal . [facility] CenterEnlxvooJAETPELNZX2326-07-45 09:35:00 Test Item Value Reference Range Interpretation Comments WBC (test code = WBC) 6.0 3.7-10.4 [place] [address]-11-03 09:35:00 Test Item Value Reference Range Interpretation Comments RBC (test code = RBC) 2.84 4.70-6.10 [place] [address]-11-03 09:35:00 Test Item Value Reference Range Interpretation Comments Hgb (test code = Hgb) 8.1 14.0-18.0 [place] 031030-11-03 09:35:00 Test Item Value Reference Range Interpretation Comments Hct (test code = Hct) 24.2 42.0-54.0 [place] [address]-11-03 09:35:00 Test Item Value Reference Range Interpretation Comments MCV (test code = MCV) 85.3 80.0-94.0 [place] [address]-11-03 09:35:00 Test Item Value Reference Range Interpretation Comments MCH (test code = MCH) 28.7 pg 27.0-31.0 [place] [address]-11-03 09:35:00 Test Item Value Reference Range Interpretation Comments MCHC (test code = MCHC) 33.6 32.0-36.0 [place] [address]-11-03 09:35:00 Test Item Value Reference Range Interpretation Comments RDW (test code = RDW) 14.5 11.5-14.5 [place] [address]-11-03 09:35:00 Test Item Value Reference Range Interpretation Comments Platelet (test code = Platelet) 171 133-450 [place] [address]-11-03 09:35:00 Test Item Value Reference Range Interpretation Comments MPV (test code = MPV) 7.4 7.4-10.4 [place] 440190-11-03 09:35:00 Test Item Value Reference Range Interpretation Comments Glucose Lvl (test code = Glucose Lvl) 80 70-99 [facility]2020-11-03 09:35:00 Test Item Value Reference Range Interpretation Comments BUN (test code = BUN) 13 7-22 [place] 440190-11-03 09:35:00 Test Item Value Reference Range Interpretation Comments Creatinine Lvl (test code = Creatinine 5.51 0.50-1.40 Lvl) [facility]2020-11-03 09:35:00 Test Item Value Reference Range Interpretation Comments Sodium Lvl (test code = Sodium Lvl) 140 135-145 [place] 440190-11-03 09:35:00 Test Item Value Reference Range Interpretation Comments Potassium Lvl (test code = Potassium 3.2 3.5-5.1 Lvl) [place] 440190-11-03 09:35:00 Test Item Value Reference Range Interpretation Comments Chloride Lvl (test code = Chloride Lvl) 105 95-109 [place] [address]-11-03 09:35:00 Test Item Value Reference Range Interpretation Comments CO2 (test code = CO2) 28 24-32 [address]11-03 09:35:00 Test Item Value Reference Range Interpretation Comments Calcium Lvl (test code = Calcium Lvl) 8.4 8.5-10.5 [place] [address]-11-03 09:35:00 Test Item Value Reference Range Interpretation Comments AGAP (test code = AGAP) 10.2 10.0-20.0 [address]11-03 09:35:00 Test Item Value Reference Range Interpretation Comments eGFR (test code = eGFR) 10 [place] [address]-11-03 09:35:00 Test Item Value Reference Range Interpretation Comments Segs (test code = Segs) 68.4 45.0-75.0 [address]11-03 09:35:00 Test Item Value Reference Range Interpretation Comments Lymphocytes (test code = Lymphocytes) 17.8 20.0-40.0 [place] [address]-11-03 09:35:00 Test Item Value Reference Range Interpretation Comments Monocytes (test code = Monocytes) 9.3 2.0-12.0 [place] [address]-11-03 09:35:00 Test Item Value Reference Range Interpretation Comments Eosinophils (test code = 3.7 See_Comment [A utomated message] The Eosinophils) system which ge nerated this result tra nsmitted reference range : <=4.0. The reference r yared was not used to int erpret this result as normal/abnormal . [place] [address]-11-03 09:35:00 Test Item Value Reference Range Interpretation Comments Basophils (test code = 0.8 See_Comment [Aut omated message] The Basophils) system which ge nerated this result tra nsmitted reference range : <=1.0. The reference r yared was not used to int erpret this result as normal/abnormal . [place] [address]-11-03 09:35:00 Test Item Value Reference Range Interpretation Comments Neutrophils # (test code = Neutrophils 4.1 1.5-8.1 #) [place] [address]-11-03 09:35:00 Test Item Value Reference Range Interpretation Comments Lymphocytes # (test code = Lymphocytes 1.1 1.0-5.5 #) [facility] CenterQegosvsTWMIYGEOVJ8581-02-13 09:35:00 Test Item Value Reference Range Interpretation Comments Monocytes # (test code 0.6 See_Comment [Aut omated message] The = Monocytes #) system which generated this result tra nsmitted reference range : <=0.8. The reference r yared was not used to int erpret this result as normal/abnormal . [facility]icyqbrZKKQKKRMEV5929-86-44 09:35:00 Test Item Value Reference Range Interpretation Comments Eosinophils # (test code 0.2 See_Comment [A utomated message] The = Eosinophils #) system whic h generated this result tra nsmitted reference range : <=0.5. The reference r yared was not used to int erpret this result as normal/abnormal . [place] 031030-11-03 09:35:00 Test Item Value Reference Range Interpretation Comments WBC (test code = WBC) 6.0 3.7-10.4 [place] 031030-11-03 09:35:00 Test Item Value Reference Range Interpretation Comments RBC (test code = RBC) 2.84 4.70-6.10 [place] [address]-11-03 09:35:00 Test Item Value Reference Range Interpretation Comments Hgb (test code = Hgb) 8.1 14.0-18.0 [place] [address]-11-03 09:35:00 Test Item Value Reference Range Interpretation Comments Hct (test code = Hct) 24.2 42.0-54.0 [place] [address]-11-03 09:35:00 Test Item Value Reference Range Interpretation Comments MCV (test code = MCV) 85.3 80.0-94.0 [place] [address]-11-03 09:35:00 Test Item Value Reference Range Interpretation Comments MCH (test code = MCH) 28.7 pg 27.0-31.0 [place] 031030-11-03 09:35:00 Test Item Value Reference Range Interpretation Comments MCHC (test code = MCHC) 33.6 32.0-36.0 [place] [address]-11-03 09:35:00 Test Item Value Reference Range Interpretation Comments RDW (test code = RDW) 14.5 11.5-14.5 [place] [address]-11-03 09:35:00 Test Item Value Reference Range Interpretation Comments Platelet (test code = Platelet) 171 133-450 [place] 031030-11-03 09:35:00 Test Item Value Reference Range Interpretation Comments MPV (test code = MPV) 7.4 7.4-10.4 [place] 440190-11-02 09:39:00 Test Item Value Reference Range Interpretation Comments Glucose Lvl (test code = Glucose Lvl) 110 70-99 [place] 440190-11-02 09:39:00 Test Item Value Reference Range Interpretation Comments BUN (test code = BUN) 21 7-22 [place] 440190-11-02 09:39:00 Test Item Value Reference Range Interpretation Comments Creatinine Lvl (test code = Creatinine 6.77 0.50-1.40 Lvl) [facility]2020-11-02 09:39:00 Test Item Value Reference Range Interpretation Comments Sodium Lvl (test code = Sodium Lvl) 139 135-145 [place] 440190-11-02 09:39:00 Test Item Value Reference Range Interpretation Comments Potassium Lvl (test code = Potassium 3.5 3.5-5.1 Lvl) [facility]2020-11-02 09:39:00 Test Item Value Reference Range Interpretation Comments Chloride Lvl (test code = Chloride Lvl) 104 95-109 [place] 440190-11-02 09:39:00 Test Item Value Reference Range Interpretation Comments CO2 (test code = CO2) 29 24-32 [place] 440190-11-02 09:39:00 Test Item Value Reference Range Interpretation Comments AGAP (test code = AGAP) 9.5 10.0-20.0 [place] 440190-11-02 09:39:00 Test Item Value Reference Range Interpretation Comments Calcium Lvl (test code = Calcium Lvl) 7.9 8.5-10.5 [place] 440190-11-02 09:39:00 Test Item Value Reference Range Interpretation Comments eGFR (test code = eGFR) 8 [place] 031030-11-02 09:39:00 Test Item Value Reference Range Interpretation Comments Neutrophils # (test code = Neutrophils 3.8 1.5-8.1 #) [facility] CenterKazxflqQUAIQVWBFI0275-76-95 09:39:00 Test Item Value Reference Range Interpretation Comments Lymphocytes # (test code = Lymphocytes 1.1 1.0-5.5 #) [place] 031030-11-02 09:39:00 Test Item Value Reference Range Interpretation Comments Monocytes # (test code 0.2 See_Comment [Aut omated message] The = Monocytes #) system which generated this result tra nsmitted reference range : <=0.8. The reference r yared was not used to int erpret this result as normal/abnormal . [place] [address]-11-02 09:39:00 Test Item Value Reference Range Interpretation Comments Eosinophils # (test code 0.4 See_Comment [A utomated message] The = Eosinophils #) system whic h generated this result tra nsmitted reference range : <=0.5. The reference r yared was not used to int erpret this result as normal/abnormal . [place] 031030-11-02 09:39:00 Test Item Value Reference Range Interpretation Comments Segs (test code = Segs) 64.0 45.0-75.0 [place] [address]-11-02 09:39:00 Test Item Value Reference Range Interpretation Comments Bands (test code = 2.0 See_Comment [Automat ed message] The Bands) system which ge nerated this result transmit emerson reference range : <=11.0. The reference r yared was not used to interpr et this result as erinn l/abnormal. [place] 031030-11-02 09:39:00 Test Item Value Reference Range Interpretation Comments Lymphocytes (test code = Lymphocytes) 20.0 20.0-40.0 [place] [address]-11-02 09:39:00 Test Item Value Reference Range Interpretation Comments Monocytes (test code = Monocytes) 4.0 2.0-12.0 [place] [address]-11-02 09:39:00 Test Item Value Reference Range Interpretation Comments Eosinophils (test code = 7.0 See_Comment [A utomated message] The Eosinophils) system which ge nerated this result tra nsmitted reference range : <=4.0. The reference r yared was not used to int erpret this result as normal/abnormal . [facility] CenterNpphkgdOIPJWRXHWU3378-42-61 09:39:00 Test Item Value Reference Range Interpretation Comments Myelocytes (test code = Myelocytes) 3.0 [place] 031030-11-02 09:39:00 Test Item Value Reference Range Interpretation Comments Atypical Lymphs (test code = Atypical 0.0 Lymphs) [facility] CenterOfrbkdeLKXKEDXACB3161-06-56 09:39:00 Test Item Value Reference Range Interpretation Comments NRBC (test code = NRBC) 1 [place] 031030-11-02 09:39:00 Test Item Value Reference Range Interpretation Comments RBC Morph (test code = Normal (08/10/20 3:39 RBC Morph) AM) [facility] CenterAodbqudFYQFULKRFW9010-47-87 09:39:00 Test Item Value Reference Range Interpretation Comments Plt Morph (test code = Normal (08/10/20 3:39 Plt Morph) AM) [facility] CenterNkfgefuJWKKBVKNYF3647-32-84 09:39:00 Test Item Value Reference Range Interpretation Comments WBC (test code = WBC) 5.7 3.7-10.4 [place] 031030-11-02 09:39:00 Test Item Value Reference Range Interpretation Comments RBC (test code = RBC) 2.61 4.70-6.10 [facility] CenterOjcusoiCSBGZHCRRE7844-61-19 09:39:00 Test Item Value Reference Range Interpretation Comments Hgb (test code = Hgb) 7.5 14.0-18.0 [facility] CenterRwufbcaEZHFXAZHYV7153-64-96 09:39:00 Test Item Value Reference Range Interpretation Comments Hct (test code = Hct) 22.3 42.0-54.0 [place] 031030-11-02 09:39:00 Test Item Value Reference Range Interpretation Comments MCV (test code = MCV) 85.6 80.0-94.0 [place] 031030-11-02 09:39:00 Test Item Value Reference Range Interpretation Comments MCH (test code = MCH) 28.8 pg 27.0-31.0 [place] 031030-11-02 09:39:00 Test Item Value Reference Range Interpretation Comments MCHC (test code = MCHC) 33.6 32.0-36.0 [place] [address]-11-02 09:39:00 Test Item Value Reference Range Interpretation Comments RDW (test code = RDW) 13.9 11.5-14.5 [place] 031030-11-02 09:39:00 Test Item Value Reference Range Interpretation Comments Platelet (test code = Platelet) 164 133-450 [place] 031030-11-02 09:39:00 Test Item Value Reference Range Interpretation Comments MPV (test code = MPV) 7.5 7.4-10.4 [place] 440190-11-02 09:39:00 Test Item Value Reference Range Interpretation Comments Glucose Lvl (test code = Glucose Lvl) 110 70-99 [place] 440190-11-02 09:39:00 Test Item Value Reference Range Interpretation Comments BUN (test code = BUN) 21 7-22 [facility]2020-11-02 09:39:00 Test Item Value Reference Range Interpretation Comments Creatinine Lvl (test code = Creatinine 6.77 0.50-1.40 Lvl) [place] 440190-11-02 09:39:00 Test Item Value Reference Range Interpretation Comments Sodium Lvl (test code = Sodium Lvl) 139 135-145 [place] 440190-11-02 09:39:00 Test Item Value Reference Range Interpretation Comments Potassium Lvl (test code = Potassium 3.5 3.5-5.1 Lvl) [facility]2020-11-02 09:39:00 Test Item Value Reference Range Interpretation Comments Chloride Lvl (test code = Chloride Lvl) 104 95-109 [facility]2020-11-02 09:39:00 Test Item Value Reference Range Interpretation Comments CO2 (test code = CO2) 29 24-32 [place] 440190-11-02 09:39:00 Test Item Value Reference Range Interpretation Comments AGAP (test code = AGAP) 9.5 10.0-20.0 [place] 440190-11-02 09:39:00 Test Item Value Reference Range Interpretation Comments Calcium Lvl (test code = Calcium Lvl) 7.9 8.5-10.5 [place] 440190-11-02 09:39:00 Test Item Value Reference Range Interpretation Comments eGFR (test code = eGFR) 8 [place] 031030-11-02 09:39:00 Test Item Value Reference Range Interpretation Comments Neutrophils # (test code = Neutrophils 3.8 1.5-8.1 #) [facility] CenterCszhyvsIKDIHDLENK7955-79-21 09:39:00 Test Item Value Reference Range Interpretation Comments Lymphocytes # (test code = Lymphocytes 1.1 1.0-5.5 #) [facility] CenterKpeeqxhFUWVGIVIAB1083-99-78 09:39:00 Test Item Value Reference Range Interpretation Comments Monocytes # (test code 0.2 See_Comment [Aut omated message] The = Monocytes #) system which generated this result tra nsmitted reference range : <=0.8. The reference r yared was not used to int erpret this result as normal/abnormal . [place] 031030-11-02 09:39:00 Test Item Value Reference Range Interpretation Comments Eosinophils # (test code 0.4 See_Comment [A utomated message] The = Eosinophils #) system whic h generated this result tra nsmitted reference range : <=0.5. The reference r yared was not used to int erpret this result as normal/abnormal . [facility] CenterQpqopouTYTTYJBPTM5878-18-00 09:39:00 Test Item Value Reference Range Interpretation Comments Segs (test code = Segs) 64.0 45.0-75.0 [place] 031030-11-02 09:39:00 Test Item Value Reference Range Interpretation Comments Bands (test code = 2.0 See_Comment [Automat ed message] The Bands) system which ge nerated this result transmit emerson reference range : <=11.0. The reference r yared was not used to interpr et this result as erinn l/abnormal. [facility] CenterEyrtifmZECYIWCFJE4672-17-08 09:39:00 Test Item Value Reference Range Interpretation Comments Lymphocytes (test code = Lymphocytes) 20.0 20.0-40.0 [place] 031030-11-02 09:39:00 Test Item Value Reference Range Interpretation Comments Monocytes (test code = Monocytes) 4.0 2.0-12.0 [place] 031030-11-02 09:39:00 Test Item Value Reference Range Interpretation Comments Eosinophils (test code = 7.0 See_Comment [A utomated message] The Eosinophils) system which ge nerated this result tra nsmitted reference range : <=4.0. The reference r yared was not used to int erpret this result as normal/abnormal . [place] 031030-11-02 09:39:00 Test Item Value Reference Range Interpretation Comments Myelocytes (test code = Myelocytes) 3.0 [place] 031030-11-02 09:39:00 Test Item Value Reference Range Interpretation Comments Atypical Lymphs (test code = Atypical 0.0 Lymphs) [place] 031030-11-02 09:39:00 Test Item Value Reference Range Interpretation Comments NRBC (test code = NRBC) 1 [place] 031030-11-02 09:39:00 Test Item Value Reference Range Interpretation Comments RBC Morph (test code = Normal (08/10/20 3:39 RBC Morph) AM) [place] [address]-11-02 09:39:00 Test Item Value Reference Range Interpretation Comments Plt Morph (test code = Normal (08/10/20 3:39 Plt Morph) AM) [facility] CenterQkltkzoEUYEHWFJTF4542-29-52 09:39:00 Test Item Value Reference Range Interpretation Comments WBC (test code = WBC) 5.7 3.7-10.4 [place] [address]-11-02 09:39:00 Test Item Value Reference Range Interpretation Comments RBC (test code = RBC) 2.61 4.70-6.10 [facility] CenterJketewpYAPGDDOIEE5095-73-00 09:39:00 Test Item Value Reference Range Interpretation Comments Hgb (test code = Hgb) 7.5 14.0-18.0 [place] 031030-11-02 09:39:00 Test Item Value Reference Range Interpretation Comments Hct (test code = Hct) 22.3 42.0-54.0 [place] [address]-11-02 09:39:00 Test Item Value Reference Range Interpretation Comments MCV (test code = MCV) 85.6 80.0-94.0 [place] [address]-11-02 09:39:00 Test Item Value Reference Range Interpretation Comments MCH (test code = MCH) 28.8 pg 27.0-31.0 [place] [address]-11-02 09:39:00 Test Item Value Reference Range Interpretation Comments MCHC (test code = MCHC) 33.6 32.0-36.0 [place] 031030-11-02 09:39:00 Test Item Value Reference Range Interpretation Comments RDW (test code = RDW) 13.9 11.5-14.5 [place] 031030-11-02 09:39:00 Test Item Value Reference Range Interpretation Comments Platelet (test code = Platelet) 164 133-450 [place] 031030-11-02 09:39:00 Test Item Value Reference Range Interpretation Comments MPV (test code = MPV) 7.5 7.4-10.4 [place] [address]-11-01 16:40:00 Test Item Value Reference Range Interpretation Comments Basophils (test code = 0.6 See_Comment [Aut omated message] The Basophils) system which ge nerated this result tra nsmitted reference range : <=1.0. The reference r yared was not used to int erpret this result as normal/abnormal . [facility] CenterOvcpzsaYOHDZWBOPF7804-00-87 16:40:00 Test Item Value Reference Range Interpretation Comments WBC (test code = WBC) 5.7 3.7-10.4 [place] [address]-11-01 16:40:00 Test Item Value Reference Range Interpretation Comments RBC (test code = RBC) 2.82 4.70-6.10 [place] 031030-11-01 16:40:00 Test Item Value Reference Range Interpretation Comments Hgb (test code = Hgb) 8.0 14.0-18.0 [place] 031030-11-01 16:40:00 Test Item Value Reference Range Interpretation Comments Hct (test code = Hct) 24.2 42.0-54.0 [place] 031030-11-01 16:40:00 Test Item Value Reference Range Interpretation Comments MCV (test code = MCV) 85.8 80.0-94.0 [place] [address]-11-01 16:40:00 Test Item Value Reference Range Interpretation Comments MCH (test code = MCH) 28.6 pg 27.0-31.0 [place] 031030-11-01 16:40:00 Test Item Value Reference Range Interpretation Comments MCHC (test code = MCHC) 33.3 32.0-36.0 [place] [address]-11-01 16:40:00 Test Item Value Reference Range Interpretation Comments RDW (test code = RDW) 14.1 11.5-14.5 [facility] CenterQeqjvtpFJETILLTDS1876-49-55 16:40:00 Test Item Value Reference Range Interpretation Comments Platelet (test code = Platelet) 169 133-450 [facility] CenterQfzttdbJQREULDVAP1685-72-20 16:40:00 Test Item Value Reference Range Interpretation Comments MPV (test code = MPV) 7.2 7.4-10.4 [place] 031030-11-01 16:40:00 Test Item Value Reference Range Interpretation Comments Segs (test code = Segs) 72.6 45.0-75.0 [place] 031030-11-01 16:40:00 Test Item Value Reference Range Interpretation Comments Lymphocytes (test code = Lymphocytes) 14.6 20.0-40.0 [facility] CenterCxauoyqEVCXJZXSWQ2280-53-47 16:40:00 Test Item Value Reference Range Interpretation Comments Monocytes (test code = Monocytes) 7.8 2.0-12.0 [place] [address]-11-01 16:40:00 Test Item Value Reference Range Interpretation Comments Eosinophils (test code = 4.4 See_Comment [A utomated message] The Eosinophils) system which ge nerated this result tra nsmitted reference range : <=4.0. The reference r yared was not used to int erpret this result as normal/abnormal . [facility] CenterTyrquwjULFKPKJYBP9859-43-84 16:40:00 Test Item Value Reference Range Interpretation Comments Neutrophils # (test code = Neutrophils 4.2 1.5-8.1 #) [place] 031030-11-01 16:40:00 Test Item Value Reference Range Interpretation Comments Lymphocytes # (test code = Lymphocytes 0.8 1.0-5.5 #) [place] [address]-11-01 16:40:00 Test Item Value Reference Range Interpretation Comments Monocytes # (test code 0.4 See_Comment [Aut omated message] The = Monocytes #) system which generated this result tra nsmitted reference range : <=0.8. The reference r yared was not used to int erpret this result as normal/abnormal . [place] 031030-11-01 16:40:00 Test Item Value Reference Range Interpretation Comments Eosinophils # (test code 0.2 See_Comment [A utomated message] The = Eosinophils #) system whic h generated this result tra nsmitted reference range : <=0.5. The reference r yared was not used to int erpret this result as normal/abnormal . [facility]SdpkrfkQMJAMTTMTH4368-92-85 16:40:00 Test Item Value Reference Range Interpretation Comments Hep B Core Ab (test code = Hep B NON-REACTIVE Core Ab) [facility] CenterCghrzxsRNSNLCNRNN2642-65-18 16:40:00 Test Item Value Reference Range Interpretation Comments Hep Bs Ag (test code = Hep Bs NON-REACTIVE Ag) [facility] CenterIlnogyvDWDVXVMYNR2178-19-00 16:40:00 Test Item Value Reference Range Interpretation Comments Hep Bs Ab (test code = Hep Bs Ab) 7 [facility] CenterLrmbzoqNWRIVHFEZK6491-45-97 16:40:00 Test Item Value Reference Range Interpretation Comments Basophils (test code = 0.6 See_Comment [Aut omated message] The Basophils) system which ge nerated this result tra nsmitted reference range : <=1.0. The reference r yared was not used to int erpret this result as normal/abnormal . [facility] CenterCidmbnkCNMZUWBDXP2407-93-21 16:40:00 Test Item Value Reference Range Interpretation Comments WBC (test code = WBC) 5.7 3.7-10.4 [facility] CenterZqhryahLDXTDJHVMK8388-53-55 16:40:00 Test Item Value Reference Range Interpretation Comments RBC (test code = RBC) 2.82 4.70-6.10 [facility] CenterXlzdpmwUINNTUWMNK3358-42-38 16:40:00 Test Item Value Reference Range Interpretation Comments Hgb (test code = Hgb) 8.0 14.0-18.0 [facility]IL[facility]IBPK[facility] 16:40:00 Test Item Value Reference Range Interpretation Comments Hct (test code = Hct) 24.2 42.0-54.0 [facility] CenterZbrcffrROHSDDXEZG2584-78-14 16:40:00 Test Item Value Reference Range Interpretation Comments MCV (test code = MCV) 85.8 80.0-94.0 [facility]KgzxxpoDUPTJRGWDC2591-50-03 16:40:00 Test Item Value Reference Range Interpretation Comments MCH (test code = MCH) 28.6 pg 27.0-31.0 [facility] CenterMiibgkdKWPNGXHKLP7054-67-26 16:40:00 Test Item Value Reference Range Interpretation Comments MCHC (test code = MCHC) 33.3 32.0-36.0 [place] 031030-11-01 16:40:00 Test Item Value Reference Range Interpretation Comments RDW (test code = RDW) 14.1 11.5-14.5 [place] 031030-11-01 16:40:00 Test Item Value Reference Range Interpretation Comments Platelet (test code = Platelet) 169 133-450 [facility] CenterFsmnfaoQWOZIIRSIB2370-79-27 16:40:00 Test Item Value Reference Range Interpretation Comments MPV (test code = MPV) 7.2 7.4-10.4 [place] 031030-11-01 16:40:00 Test Item Value Reference Range Interpretation Comments Segs (test code = Segs) 72.6 45.0-75.0 [facility] CenterMzscpqdWYOPBUIATG0505-52-54 16:40:00 Test Item Value Reference Range Interpretation Comments Lymphocytes (test code = Lymphocytes) 14.6 20.0-40.0 [place] 031030-11-01 16:40:00 Test Item Value Reference Range Interpretation Comments Monocytes (test code = Monocytes) 7.8 2.0-12.0 [place] [address]-11-01 16:40:00 Test Item Value Reference Range Interpretation Comments Eosinophils (test code = 4.4 See_Comment [A utomated message] The Eosinophils) system which ge nerated this result tra nsmitted reference range : <=4.0. The reference r yared was not used to int erpret this result as normal/abnormal . [facility] CenterZfvoyzhBRNTNYUPDT9500-71-92 16:40:00 Test Item Value Reference Range Interpretation Comments Neutrophils # (test code = Neutrophils 4.2 1.5-8.1 #) [place] 031030-11-01 16:40:00 Test Item Value Reference Range Interpretation Comments Lymphocytes # (test code = Lymphocytes 0.8 1.0-5.5 #) [place] 031030-11-01 16:40:00 Test Item Value Reference Range Interpretation Comments Monocytes # (test code 0.4 See_Comment [Aut omated message] The = Monocytes #) system which generated this result tra nsmitted reference range : <=0.8. The reference r yared was not used to int erpret this result as normal/abnormal . [facility] CenterTrmlcrpAROGPIFPOS8767-34-01 16:40:00 Test Item Value Reference Range Interpretation Comments Eosinophils # (test code 0.2 See_Comment [A utomated message] The = Eosinophils #) system whic h generated this result tra nsmitted reference range : <=0.5. The reference r yared was not used to int erpret this result as normal/abnormal . [facility] CenterGpkobswMUBCOLVOMH3596-57-26 16:40:00 Test Item Value Reference Range Interpretation Comments Hep B Core Ab (test code = Hep B NON-REACTIVE Core Ab) [facility] CenterCoigbgkVIFLUBETVW1226-15-09 16:40:00 Test Item Value Reference Range Interpretation Comments Hep Bs Ag (test code = Hep Bs NON-REACTIVE Ag) [facility] CenterDnznqbjGTVKYPXNCH3160-88-65 16:40:00 Test Item Value Reference Range Interpretation Comments Hep Bs Ab (test code = Hep Bs Ab) 7 [facility] [id number] 14:48:00 Test Item Value Reference Range Interpretation Comments Total Protein (test code = Total 4.2 6.4-8.4 Protein) [facility] [id number] 14:48:00 Test Item Value Reference Range Interpretation Comments Albumin Lvl (test code = Albumin Lvl) 1.3 3.5-5.0 [facility] CenterDurect Corp. [id number] 14:48:00 Test Item Value Reference Range Interpretation Comments ALT (test code = ALT) 14 See_Comment [Auto mated message] The system which ge nerated this result transmit emerson reference range : <=65. The reference range was not used to interpr et this result as erinn l/abnormal. [facility] [id number] 14:48:00 Test Item Value Reference Range Interpretation Comments AST (test code = AST) 17 See_Comment [Auto mated message] The system which ge nerated this result transmit emerson reference range : <=37. The reference range was not used to interpr et this result as erinn l/abnormal. [facility] [id number] 14:48:00 Test Item Value Reference Range Interpretation Comments Alk Phos (test code = Alk Phos) 92 39-136 [facility]2020-11-01 14:48:00 Test Item Value Reference Range Interpretation Comments Bili Total (test code = Bili Total) 0.5 0.2-1.3 [place] 440190-11-01 14:48:00 Test Item Value Reference Range Interpretation Comments B/C Ratio (test code = B/C Ratio) 3 1 6-25 [place] [address]-11-01 14:48:00 Test Item Value Reference Range Interpretation Comments Globulin (test code = Globulin) 2.9 2.7-4.2 [place] [address]-11-01 14:48:00 Test Item Value Reference Range Interpretation Comments A/G Ratio (test code = A/G Ratio) 0.4 1 0.7-1.6 [place] [address]-11-01 14:48:00 Test Item Value Reference Range Interpretation Comments Magnesium Lvl (test code = Magnesium 1.8 1.8-2.4 Lvl) [place] 440190-11-01 14:48:00 Test Item Value Reference Range Interpretation Comments Glucose Lvl (test code = Glucose Lvl) 70 70-99 [place] 440190-11-01 14:48:00 Test Item Value Reference Range Interpretation Comments BUN (test code = BUN) 25 7-22 [place] 440190-11-01 14:48:00 Test Item Value Reference Range Interpretation Comments Creatinine Lvl (test code = Creatinine 8.85 0.50-1.40 Lvl) [place] 440190-11-01 14:48:00 Test Item Value Reference Range Interpretation Comments Sodium Lvl (test code = Sodium Lvl) 139 135-145 [place] 440190-11-01 14:48:00 Test Item Value Reference Range Interpretation Comments Potassium Lvl (test code = Potassium 4.0 3.5-5.1 Lvl) [place] 440190-11-01 14:48:00 Test Item Value Reference Range Interpretation Comments Chloride Lvl (test code = Chloride Lvl) 100 95-109 [place] 440190-11-01 14:48:00 Test Item Value Reference Range Interpretation Comments CO2 (test code = CO2) 30 24-32 [place] 440190-11-01 14:48:00 Test Item Value Reference Range Interpretation Comments Calcium Lvl (test code = Calcium Lvl) 7.5 8.5-10.5 [facility] CenterD[facility] [id number] 14:48:00 Test Item Value Reference Range Interpretation Comments AGAP (test code = AGAP) 13.0 10.0-20.0 [place] [id number] 14:48:00 Test Item Value Reference Range Interpretation Comments eGFR (test code = eGFR) 6 [facility]2020-11-01 14:48:00 Test Item Value Reference Range Interpretation Comments Total Protein (test code = Total 4.2 6.4-8.4 Protein) [facility]2020-11-01 14:48:00 Test Item Value Reference Range Interpretation Comments Albumin Lvl (test code = Albumin Lvl) 1.3 3.5-5.0 [facility]2020-11-01 14:48:00 Test Item Value Reference Range Interpretation Comments ALT (test code = ALT) 14 See_Comment [Auto mated message] The system which ge nerated this result transmit emerson reference range : <=65. The reference range was not used to interpr et this result as erinn l/abnormal. [facility] [id number] 14:48:00 Test Item Value Reference Range Interpretation Comments AST (test code = AST) 17 See_Comment [Auto mated message] The system which ge nerated this result transmit emerson reference range : <=37. The reference range was not used to interpr et this result as erinn l/abnormal. [facility] [id number] 14:48:00 Test Item Value Reference Range Interpretation Comments Alk Phos (test code = Alk Phos) 92 39-136 [facility] CenterD[facility] [id number] 14:48:00 Test Item Value Reference Range Interpretation Comments Bili Total (test code = Bili Total) 0.5 0.2-1.3 [facility] [id number] 14:48:00 Test Item Value Reference Range Interpretation Comments B/C Ratio (test code = B/C Ratio) 3 1 6-25 [facility] CenterD[facility] [id number] 14:48:00 Test Item Value Reference Range Interpretation Comments Globulin (test code = Globulin) 2.9 2.7-4.2 [facility]2020-11-01 14:48:00 Test Item Value Reference Range Interpretation Comments A/G Ratio (test code = A/G Ratio) 0.4 1 0.7-1.6 [place] [id number] 14:48:00 Test Item Value Reference Range Interpretation Comments Magnesium Lvl (test code = Magnesium 1.8 1.8-2.4 Lvl) [place] 440190-11-01 14:48:00 Test Item Value Reference Range Interpretation Comments Glucose Lvl (test code = Glucose Lvl) 70 70-99 [place] 440190-11-01 14:48:00 Test Item Value Reference Range Interpretation Comments BUN (test code = BUN) 25 7-22 [place] 440190-11-01 14:48:00 Test Item Value Reference Range Interpretation Comments Creatinine Lvl (test code = Creatinine 8.85 0.50-1.40 Lvl) [place] 440190-11-01 14:48:00 Test Item Value Reference Range Interpretation Comments Sodium Lvl (test code = Sodium Lvl) 139 135-145 [place] 440190-11-01 14:48:00 Test Item Value Reference Range Interpretation Comments Potassium Lvl (test code = Potassium 4.0 3.5-5.1 Lvl) [place] 440190-11-01 14:48:00 Test Item Value Reference Range Interpretation Comments Chloride Lvl (test code = Chloride Lvl) 100 95-109 [place] 440190-11-01 14:48:00 Test Item Value Reference Range Interpretation Comments CO2 (test code = CO2) 30 24-32 [place] 440190-11-01 14:48:00 Test Item Value Reference Range Interpretation Comments Calcium Lvl (test code = Calcium Lvl) 7.5 8.5-10.5 [place] 440190-11-01 14:48:00 Test Item Value Reference Range Interpretation Comments AGAP (test code = AGAP) 13.0 10.0-20.0 [place] 440190-11-01 14:48:00 Test Item Value Reference Range Interpretation Comments eGFR (test code = eGFR) 6 [facility] CenterTfrkbpxRQPRIJIPWM7186-19-86 10:41:00 Test Item Value Reference Range Interpretation Comments Hgb (test code = Hgb) 7.6 14.0-18.0 [place] 031030-11-01 10:41:00 Test Item Value Reference Range Interpretation Comments Hgb (test code = Hgb) 7.6 14.0-18.0 [place] 031030-11-01 02:33:00 Test Item Value Reference Range Interpretation Comments Hgb (test code = Hgb) 7.9 14.0-18.0 [place] 031030-11-01 02:33:00 Test Item Value Reference Range Interpretation Comments Hgb (test code = Hgb) 7.9 14.0-18.0 [facility] CenterXfpzyrnCDEAWDZLPS9789-17-38 20:10:00 Test Item Value Reference Range Interpretation Comments Hct (test code = Hct) 23.0 42.0-54.0 [facility] CenterOwqexpiJEWSDLAWGU3396-77-80 20:10:00 Test Item Value Reference Range Interpretation Comments Hct (test code = Hct) 23.0 42.0-54.0 [facility]2020-10-31 19:15:00 Test Item Value Reference Range Interpretation Comments Color BF (test code = Light Yellow (08/08/20 Color BF) 2:15 PM) [facility]2020-10-31 19:15:00 Test Item Value Reference Range Interpretation Comments Clarity BF (test code = Slight Cloudy Clarity BF) (08/08/20 2:15 PM) [facility]2020-10-31 19:15:00 Test Item Value Reference Range Interpretation Comments Nucleated Cells BF (test code = 571 Nucleated Cells BF) [facility]2020-10-31 19:15:00 Test Item Value Reference Range Interpretation Comments RBC BF (test code = RBC BF) 512 [facility]2020-10-31 19:15:00 Test Item Value Reference Range Interpretation Comments Neutrophils BF (test code = Neutrophils 18 BF) [facility]2020-10-31 19:15:00 Test Item Value Reference Range Interpretation Comments Lymph BF (test code = Lymph BF) 10 [facility]2020-10-31 19:15:00 Test Item Value Reference Range Interpretation Comments Macrophage BF (test code = Macrophage 44 BF) [facility]2020-10-31 19:15:00 Test Item Value Reference Range Interpretation Comments Eos BF (test code = Eos BF) 26 [facility]2020-10-31 19:15:00 Test Item Value Reference Range Interpretation Comments Meso BF (test code = Meso BF) 2 [facility]2020-10-31 19:15:00 Test Item Value Reference Range Interpretation Comments CellCnt BF Type (test Abdomn (08/08/20 2:15 code = CellCnt BF Type) PM) [facility] CenterGram Stain Tqqbwl5830-07-20 19:15:00 Test Item Value Reference Range Interpretation Comments Gram Stain Report Few WBC's No Organisms (test code = Gram Seen Stain Report) [facility] CenterCulture: Aspirate/Body Fluid/[id number] 19:15:00 Test Item Value Reference Range Interpretation Comments Culture: Aspirate/Body Fluid/Tissue No Growth (test code = Culture: Aspirate/Body Fluid/Tissue) [facility]2020-10-31 19:15:00 Test Item Value Reference Range Interpretation Comments Color BF (test code = Light Yellow (08/08/20 Color BF) 2:15 PM) [facility]2020-10-31 19:15:00 Test Item Value Reference Range Interpretation Comments Clarity BF (test code = Slight Cloudy Clarity BF) (08/08/20 2:15 PM) [facility]2020-10-31 19:15:00 Test Item Value Reference Range Interpretation Comments Nucleated Cells BF (test code = 571 Nucleated Cells BF) [facility]2020-10-31 19:15:00 Test Item Value Reference Range Interpretation Comments RBC BF (test code = RBC BF) 512 [facility]2020-10-31 19:15:00 Test Item Value Reference Range Interpretation Comments Neutrophils BF (test code = Neutrophils 18 BF) [facility]2020-10-31 19:15:00 Test Item Value Reference Range Interpretation Comments Lymph BF (test code = Lymph BF) 10 [facility]2020-10-31 19:15:00 Test Item Value Reference Range Interpretation Comments Macrophage BF (test code = Macrophage 44 BF) [facility]2020-10-31 19:15:00 Test Item Value Reference Range Interpretation Comments Eos BF (test code = Eos BF) 26 [facility]2020-10-31 19:15:00 Test Item Value Reference Range Interpretation Comments Meso BF (test code = Meso BF) 2 [facility] CenterBODY [id number] 19:15:00 Test Item Value Reference Range Interpretation Comments CellCnt BF Type (test Abdomn (08/08/20 2:15 code = CellCnt BF Type) PM) [facility] CenterGram Stain [id number] 19:15:00 Test Item Value Reference Range Interpretation Comments Gram Stain Report Few WBC's No Organisms (test code = Gram Seen Stain Report) [facility] CenterannCulture: Aspirate/Body Fluid/[id number] 19:15:00 Test Item Value Reference Range Interpretation Comments Culture: Aspirate/Body Fluid/Tissue No Growth (test code = Culture: Aspirate/Body Fluid/Tissue) [facility] Within3 [id number] 15:28:09 Test Item Value Reference Range Interpretation Comments RBC product (test code Product available = RBC product) 4(08/08/20 10:28 AM) [facility] [id number] 15:28:09 Test Item Value Reference Range Interpretation Comments RBC product (test code Product available = RBC product) 4(08/08/20 10:28 AM) [facility] [id number] 14:41:00 Test Item Value Reference Range Interpretation Comments ABO/Rh (test code = ABO/Rh) O POS [facility] [id number] 14:41:00 Test Item Value Reference Range Interpretation Comments Antibody Scrn (test Negative (08/08/20 code = Antibody Scrn) 9:41 AM) [id number] 14:41:00 Test Item Value Reference Range Interpretation Comments Bands (test code = 1.0 See_Comment [Automat ed message] The Bands) system which ge nerated this result transmit emerson reference range : <=11.0. The reference r yared was not used to interpr et this result as erinn l/abnormal. [facility] CenterRgpamfvIFHFTRHCJR6997-03-91 14:41:00 Test Item Value Reference Range Interpretation Comments Atypical Lymphs (test code = Atypical 9.0 Lymphs) [facility] CenterAflflftHPKHYNFRZX0508-64-39 14:41:00 Test Item Value Reference Range Interpretation Comments RBC Morph (test code = See Note (08/08/20 RBC Morph) 9:41 AM) [facility] CenterKtlpyzkVRYKSDQFFC3049-77-82 14:41:00 Test Item Value Reference Range Interpretation Comments Plt Morph (test code = Normal (08/08/20 9:41 Plt Morph) AM) [facility] CenterTmheakjIBCOFREKEE8301-40-96 14:41:00 Test Item Value Reference Range Interpretation Comments Anisocyte (test code = 1+ *ABN*(08/08/20 Anisocyte) 9:41 AM) [facility] CenterTohcsizNBVNLIWHPW9210-24-19 14:41:00 Test Item Value Reference Range Interpretation Comments Macrocyte (test code = 1+ *ABN*(08/08/20 Macrocyte) 9:41 AM) [facility] CenterWajkdcxXDJXCNVEWL4101-17-75 14:41:00 Test Item Value Reference Range Interpretation Comments Hypochrom (test code = 1+ (08/08/20 9:41 Hypochrom) AM) [facility] CenterScjhfvzAHQXJCSUMB4312-22-26 14:41:00 Test Item Value Reference Range Interpretation Comments Polychrom (test code = Moderate Polychrom) *ABN*(08/08/20 9:41 AM) [facility] CenterMskgvvtVOJMRXTZIE2304-32-45 14:41:00 Test Item Value Reference Range Interpretation Comments WBC (test code = WBC) 6.0 3.7-10.4 [facility] CenterDxidtzvUQGTBXRGPP9310-39-21 14:41:00 Test Item Value Reference Range Interpretation Comments RBC (test code = RBC) 2.32 4.70-6.10 [facility] CenterJxsozmkZDPFVNZTBG6034-52-09 14:41:00 Test Item Value Reference Range Interpretation Comments Hct (test code = Hct) 19.8 42.0-54.0 [facility] CenterDxyovvgFNRLMJWZXO6141-03-37 14:41:00 Test Item Value Reference Range Interpretation Comments MCV (test code = MCV) 85.6 80.0-94.0 [facility] CenterVigqvuqWUSFMTIGEM9278-84-43 14:41:00 Test Item Value Reference Range Interpretation Comments MCH (test code = MCH) 29.0 pg 27.0-31.0 [facility] CenterYksizunPXBHDEDGJM6908-60-93 14:41:00 Test Item Value Reference Range Interpretation Comments MCHC (test code = MCHC) 33.8 32.0-36.0 [place] 031030-10-31 14:41:00 Test Item Value Reference Range Interpretation Comments RDW (test code = RDW) 13.9 11.5-14.5 [place] 031030-10-31 14:41:00 Test Item Value Reference Range Interpretation Comments Platelet (test code = Platelet) 176 133-450 [facility] CenterOnskbibJSVKSIBFAZ6645-07-85 14:41:00 Test Item Value Reference Range Interpretation Comments MPV (test code = MPV) 6.8 7.4-10.4 [place] 031030-10-31 14:41:00 Test Item Value Reference Range Interpretation Comments Neutrophils # (test code = Neutrophils 4.1 1.5-8.1 #) [facility] CenterNnvzapsQHUDKUYUYI2135-85-20 14:41:00 Test Item Value Reference Range Interpretation Comments Lymphocytes # (test code = Lymphocytes 1.4 1.0-5.5 #) [facility] CenterLhrcwyrUQUETAMJPZ1351-96-78 14:41:00 Test Item Value Reference Range Interpretation Comments Monocytes # (test code 0.1 See_Comment [Aut omated message] The = Monocytes #) system which generated this result tra nsmitted reference range : <=0.8. The reference r yared was not used to int erpret this result as normal/abnormal . [facility] CenterSudmcrrNKAVVMSVTA7496-60-23 14:41:00 Test Item Value Reference Range Interpretation Comments Eosinophils # (test code 0.4 See_Comment [A utomated message] The = Eosinophils #) system whic h generated this result tra nsmitted reference range : <=0.5. The reference r yared was not used to int erpret this result as normal/abnormal . [facility] CenterYxfjtsoSVPLQUDVTA4740-26-67 14:41:00 Test Item Value Reference Range Interpretation Comments Segs (test code = Segs) 68.0 45.0-75.0 [place] 031030-10-31 14:41:00 Test Item Value Reference Range Interpretation Comments Lymphocytes (test code = Lymphocytes) 14.0 20.0-40.0 [place] 031030-10-31 14:41:00 Test Item Value Reference Range Interpretation Comments Monocytes (test code = Monocytes) 2.0 2.0-12.0 [place] 031030-10-31 14:41:00 Test Item Value Reference Range Interpretation Comments Eosinophils (test code = 6.0 See_Comment [A utomated message] The Eosinophils) system which ge nerated this result tra nsmitted reference range : <=4.0. The reference r yared was not used to int erpret this result as normal/abnormal . [facility]The [facility] [id number] 14:41:00 Test Item Value Reference Range Interpretation Comments ABO/Rh (test code = ABO/Rh) O POS [facility] CenterThe [facility] [id number] 14:41:00 Test Item Value Reference Range Interpretation Comments Antibody Scrn (test Negative (08/08/20 code = Antibody Scrn) 9:41 AM) [facility] CenterNtmewtrTPCQYCCHWG1494-94-17 14:41:00 Test Item Value Reference Range Interpretation Comments Bands (test code = 1.0 See_Comment [Automat ed message] The Bands) system which ge nerated this result transmit emerson reference range : <=11.0. The reference r yared was not used to interpr et this result as erinn l/abnormal. [facility] CenterVymfmcfQCVZGMEXBY6533-85-56 14:41:00 Test Item Value Reference Range Interpretation Comments Atypical Lymphs (test code = Atypical 9.0 Lymphs) [facility] CenterQdkhaocIZRCWLJSNT3017-36-40 14:41:00 Test Item Value Reference Range Interpretation Comments RBC Morph (test code = See Note (08/08/20 RBC Morph) 9:41 AM) [facility] CenterDbawudyJYBWANENYX3266-89-98 14:41:00 Test Item Value Reference Range Interpretation Comments Plt Morph (test code = Normal (08/08/20 9:41 Plt Morph) AM) [facility] CenterGymuiqkBEISSZEBAV8858-79-51 14:41:00 Test Item Value Reference Range Interpretation Comments Anisocyte (test code = 1+ *ABN*(08/08/20 Anisocyte) 9:41 AM) [facility] CenterDlnlrqgFUWAJGFUDL5030-91-91 14:41:00 Test Item Value Reference Range Interpretation Comments Macrocyte (test code = 1+ *ABN*(08/08/20 Macrocyte) 9:41 AM) [facility] CenterOqarmqaYCGTWFYJKH5813-51-59 14:41:00 Test Item Value Reference Range Interpretation Comments Hypochrom (test code = 1+ (08/08/20 9:41 Hypochrom) AM) [facility] CenterEgqdofuPEJMGVJIUT2347-94-69 14:41:00 Test Item Value Reference Range Interpretation Comments Polychrom (test code = Moderate Polychrom) *ABN*(08/08/20 9:41 AM) [facility] CenterOrxqmebJKTSEWRJSD5981-55-71 14:41:00 Test Item Value Reference Range Interpretation Comments WBC (test code = WBC) 6.0 3.7-10.4 [facility] CenterWmrontwNZTLZUKSYS7600-68-96 14:41:00 Test Item Value Reference Range Interpretation Comments RBC (test code = RBC) 2.32 4.70-6.10 [facility] CenterYsykkvxAQRBLWIDNS1576-47-66 14:41:00 Test Item Value Reference Range Interpretation Comments Hct (test code = Hct) 19.8 42.0-54.0 [facility] CenterThqzuseODKBINIWXP2451-01-16 14:41:00 Test Item Value Reference Range Interpretation Comments MCV (test code = MCV) 85.6 80.0-94.0 [facility] CenterJgpvjhxYRHPJCGBUD1678-94-83 14:41:00 Test Item Value Reference Range Interpretation Comments MCH (test code = MCH) 29.0 pg 27.0-31.0 [facility] CenterWjaoypbGVRHYOAGUR1739-28-60 14:41:00 Test Item Value Reference Range Interpretation Comments MCHC (test code = MCHC) 33.8 32.0-36.0 [facility] CenterCtgkupbVSWDAYNNHV1337-51-83 14:41:00 Test Item Value Reference Range Interpretation Comments RDW (test code = RDW) 13.9 11.5-14.5 [facility] CenterUwmytcmZQKMCVUIQX8003-78-72 14:41:00 Test Item Value Reference Range Interpretation Comments Platelet (test code = Platelet) 176 133-450 [facility] CenterXrtgpqwXZSLPTHYMC4942-33-70 14:41:00 Test Item Value Reference Range Interpretation Comments MPV (test code = MPV) 6.8 7.4-10.4 [place] 031030-10-31 14:41:00 Test Item Value Reference Range Interpretation Comments Neutrophils # (test code = Neutrophils 4.1 1.5-8.1 #) [facility] CenterJynxvxpPDTAYPHIDT9301-14-19 14:41:00 Test Item Value Reference Range Interpretation Comments Lymphocytes # (test code = Lymphocytes 1.4 1.0-5.5 #) [facility] CenterAuowtucUJTUSKWAOS2078-03-24 14:41:00 Test Item Value Reference Range Interpretation Comments Monocytes # (test code 0.1 See_Comment [Aut omated message] The = Monocytes #) system which generated this result tra nsmitted reference range : <=0.8. The reference r yared was not used to int erpret this result as normal/abnormal . [facility] CenterOtpnlfkNVZMEMRMSH8012-96-94 14:41:00 Test Item Value Reference Range Interpretation Comments Eosinophils # (test code 0.4 See_Comment [A utomated message] The = Eosinophils #) system whic h generated this result tra nsmitted reference range : <=0.5. The reference r yared was not used to int erpret this result as normal/abnormal . [facility] CenterMkxygkfOHNEHHVYRU1498-65-45 14:41:00 Test Item Value Reference Range Interpretation Comments Segs (test code = Segs) 68.0 45.0-75.0 [facility] CenterWadylpvZBXLYARLXR6568-80-92 14:41:00 Test Item Value Reference Range Interpretation Comments Lymphocytes (test code = Lymphocytes) 14.0 20.0-40.0 [place] [address]-10-31 14:41:00 Test Item Value Reference Range Interpretation Comments Monocytes (test code = Monocytes) 2.0 2.0-12.0 [place] 031030-10-31 14:41:00 Test Item Value Reference Range Interpretation Comments Eosinophils (test code = 6.0 See_Comment [A utomated message] The Eosinophils) system which ge nerated this result tra nsmitted reference range : <=4.0. The reference r yared was not used to int erpret this result as normal/abnormal . [facility] CenterDure[facility] [id number] 08:42:00 Test Item Value Reference Range Interpretation Comments Phosphorus (test code = Phosphorus) 4.4 2.5-4.5 [facility] CenterDure[facility] [id number] 08:42:00 Test Item Value Reference Range Interpretation Comments Glucose Lvl (test code = Glucose Lvl) 80 70-99 [place] 440190-10-31 08:42:00 Test Item Value Reference Range Interpretation Comments BUN (test code = BUN) 34 7-22 [facility] CenterD[facility] [id number] 08:42:00 Test Item Value Reference Range Interpretation Comments Creatinine Lvl (test code = Creatinine 10.90 0.50-1.40 Lvl) [place] 440190-10-31 08:42:00 Test Item Value Reference Range Interpretation Comments Sodium Lvl (test code = Sodium Lvl) 138 135-145 [place] 440190-10-31 08:42:00 Test Item Value Reference Range Interpretation Comments Potassium Lvl (test code = Potassium 3.6 3.5-5.1 Lvl) [place] 440190-10-31 08:42:00 Test Item Value Reference Range Interpretation Comments Chloride Lvl (test code = Chloride Lvl) 99 95-109 [place] [address]-10-31 08:42:00 Test Item Value Reference Range Interpretation Comments CO2 (test code = CO2) 33 24-32 [place] [address]-10-31 08:42:00 Test Item Value Reference Range Interpretation Comments Calcium Lvl (test code = Calcium Lvl) 8.1 8.5-10.5 [place] 440190-10-31 08:42:00 Test Item Value Reference Range Interpretation Comments AGAP (test code = AGAP) 9.6 10.0-20.0 [place] 440190-10-31 08:42:00 Test Item Value Reference Range Interpretation Comments eGFR (test code = eGFR) 5 [place] 031030-10-31 08:42:00 Test Item Value Reference Range Interpretation Comments Basophils (test code = 0.6 See_Comment [Aut omated message] The Basophils) system which ge nerated this result tra nsmitted reference range : <=1.0. The reference r yared was not used to int erpret this result as normal/abnormal . [place] 031030-10-31 08:42:00 Test Item Value Reference Range Interpretation Comments WBC (test code = WBC) 6.7 3.7-10.4 [place] [address]-10-31 08:42:00 Test Item Value Reference Range Interpretation Comments RBC (test code = RBC) 2.53 4.70-6.10 [place] [address]-10-31 08:42:00 Test Item Value Reference Range Interpretation Comments MCV (test code = MCV) 84.8 80.0-94.0 [place] [address]-10-31 08:42:00 Test Item Value Reference Range Interpretation Comments MCH (test code = MCH) 28.5 pg 27.0-31.0 [facility] CenterStiahkjVFMHRTUQQM9598-37-52 08:42:00 Test Item Value Reference Range Interpretation Comments MCHC (test code = MCHC) 33.6 32.0-36.0 [facility] CenterGsvyssnHQMDEYZCJM6598-95-36 08:42:00 Test Item Value Reference Range Interpretation Comments RDW (test code = RDW) 14.4 11.5-14.5 [facility] CenterYtqdmzhCZNEYXZVFB1240-79-51 08:42:00 Test Item Value Reference Range Interpretation Comments Platelet (test code = Platelet) 182 133-450 [facility] CenterNscamyxDLWILCBMOX7912-60-97 08:42:00 Test Item Value Reference Range Interpretation Comments MPV (test code = MPV) 7.0 7.4-10.4 [place] 031030-10-31 08:42:00 Test Item Value Reference Range Interpretation Comments Segs (test code = Segs) 71.1 45.0-75.0 [facility] CenterKewaqlnVEMFOCNWVR9553-55-99 08:42:00 Test Item Value Reference Range Interpretation Comments Lymphocytes (test code = Lymphocytes) 16.3 20.0-40.0 [facility] CenterDayuxkyTCLFIRZSBJ0566-61-53 08:42:00 Test Item Value Reference Range Interpretation Comments Monocytes (test code = Monocytes) 8.0 2.0-12.0 [facility] CenterYsccykyLGRSKFFWPS6322-40-26 08:42:00 Test Item Value Reference Range Interpretation Comments Eosinophils (test code = 4.0 See_Comment [A utomated message] The Eosinophils) system which ge nerated this result tra nsmitted reference range : <=4.0. The reference r yared was not used to int erpret this result as normal/abnormal . [facility] CenterNyvvatwXTWPQQMLKY9870-15-27 08:42:00 Test Item Value Reference Range Interpretation Comments Neutrophils # (test code = Neutrophils 4.7 1.5-8.1 #) [facility] CenterXxgmdgoNOEDSHVQMQ5080-27-43 08:42:00 Test Item Value Reference Range Interpretation Comments Lymphocytes # (test code = Lymphocytes 1.1 1.0-5.5 #) [facility] CenterPhfqnglUYTBJSQXDO6281-32-67 08:42:00 Test Item Value Reference Range Interpretation Comments Monocytes # (test code 0.5 See_Comment [Aut omated message] The = Monocytes #) system which generated this result tra nsmitted reference range : <=0.8. The reference r yared was not used to int erpret this result as normal/abnormal . [id number] 08:42:00 Test Item Value Reference Range Interpretation Comments Eosinophils # (test code 0.3 See_Comment [A utomated message] The = Eosinophils #) system whic h generated this result tra nsmitted reference range : <=0.5. The reference r yared was not used to int erpret this result as normal/abnormal . [facility] [id number] 08:42:00 Test Item Value Reference Range Interpretation Comments Phosphorus (test code = Phosphorus) 4.4 2.5-4.5 [facility] [id number] 08:42:00 Test Item Value Reference Range Interpretation Comments Glucose Lvl (test code = Glucose Lvl) 80 70-99 [facility] [id number] 08:42:00 Test Item Value Reference Range Interpretation Comments BUN (test code = BUN) 34 7-22 [facility] [id number] 08:42:00 Test Item Value Reference Range Interpretation Comments Creatinine Lvl (test code = Creatinine 10.90 0.50-1.40 Lvl) [facility] [id number] 08:42:00 Test Item Value Reference Range Interpretation Comments Sodium Lvl (test code = Sodium Lvl) 138 135-145 [facility] [id number] 08:42:00 Test Item Value Reference Range Interpretation Comments Potassium Lvl (test code = Potassium 3.6 3.5-5.1 Lvl) [facility] [id number] 08:42:00 Test Item Value Reference Range Interpretation Comments Chloride Lvl (test code = Chloride Lvl) 99 95-109 [facility] [id number] 08:42:00 Test Item Value Reference Range Interpretation Comments CO2 (test code = CO2) 33 24-32 [facility] [id number] 08:42:00 Test Item Value Reference Range Interpretation Comments Calcium Lvl (test code = Calcium Lvl) 8.1 8.5-10.5 [facility] [id number] 08:42:00 Test Item Value Reference Range Interpretation Comments AGAP (test code = AGAP) 9.6 10.0-20.0 [facility] Center[facility] [id number] 08:42:00 Test Item Value Reference Range Interpretation Comments eGFR (test code = eGFR) 5 [facility] [id number] 08:42:00 Test Item Value Reference Range Interpretation Comments Basophils (test code = 0.6 See_Comment [Aut omated message] The Basophils) system which ge nerated this result tra nsmitted reference range : <=1.0. The reference r yared was not used to int erpret this result as normal/abnormal . [place] 031030-10-31 08:42:00 Test Item Value Reference Range Interpretation Comments WBC (test code = WBC) 6.7 3.7-10.4 [facility] CenterOnohqfxSBKEWSBPHC4484-94-15 08:42:00 Test Item Value Reference Range Interpretation Comments RBC (test code = RBC) 2.53 4.70-6.10 [facility] CenterTahpyyzBDVBGQZDKJ4242-79-25 08:42:00 Test Item Value Reference Range Interpretation Comments MCV (test code = MCV) 84.8 80.0-94.0 [facility] CenterVhdimdtTPYGRUUCUZ4584-53-01 08:42:00 Test Item Value Reference Range Interpretation Comments MCH (test code = MCH) 28.5 pg 27.0-31.0 [facility] CenterJsrljwhAVGTXYSZJN1719-24-20 08:42:00 Test Item Value Reference Range Interpretation Comments MCHC (test code = MCHC) 33.6 32.0-36.0 [facility] CenterAtpasucNYYGPNJGZD0584-58-86 08:42:00 Test Item Value Reference Range Interpretation Comments RDW (test code = RDW) 14.4 11.5-14.5 [place] 031030-10-31 08:42:00 Test Item Value Reference Range Interpretation Comments Platelet (test code = Platelet) 182 133-450 [facility] CenterTuuukxuGLCMWSADYY4460-60-55 08:42:00 Test Item Value Reference Range Interpretation Comments MPV (test code = MPV) 7.0 7.4-10.4 [place] 031030-10-31 08:42:00 Test Item Value Reference Range Interpretation Comments Segs (test code = Segs) 71.1 45.0-75.0 [place] 031030-10-31 08:42:00 Test Item Value Reference Range Interpretation Comments Lymphocytes (test code = Lymphocytes) 16.3 20.0-40.0 [place] 031030-10-31 08:42:00 Test Item Value Reference Range Interpretation Comments Monocytes (test code = Monocytes) 8.0 2.0-12.0 [place] 031030-10-31 08:42:00 Test Item Value Reference Range Interpretation Comments Eosinophils (test code = 4.0 See_Comment [A utomated message] The Eosinophils) system which ge nerated this result tra nsmitted reference range : <=4.0. The reference r yared was not used to int erpret this result as normal/abnormal . [place] 031030-10-31 08:42:00 Test Item Value Reference Range Interpretation Comments Neutrophils # (test code = Neutrophils 4.7 1.5-8.1 #) [place] 031030-10-31 08:42:00 Test Item Value Reference Range Interpretation Comments Lymphocytes # (test code = Lymphocytes 1.1 1.0-5.5 #) [facility] [id number] 08:42:00 Test Item Value Reference Range Interpretation Comments Monocytes # (test code 0.5 See_Comment [Aut omated message] The = Monocytes #) system which generated this result tra nsmitted reference range : <=0.8. The reference r yared was not used to int erpret this result as normal/abnormal . [place] 031030-10-31 08:42:00 Test Item Value Reference Range Interpretation Comments Eosinophils # (test code 0.3 See_Comment [A utomated message] The = Eosinophils #) system whic h generated this result tra nsmitted reference range : <=0.5. The reference r yared was not used to int erpret this result as normal/abnormal . [place] 031030-10-31 02:01:00 Test Item Value Reference Range Interpretation Comments PT (test code = PT) 13.2 s 12.0-14.7 [place] 031030-10-31 02:01:00 Test Item Value Reference Range Interpretation Comments INR (test code = INR) 1.00 1 0.85-1.17 [facility] C[id number] 02:01:00 Test Item Value Reference Range Interpretation Comments PTT (test code = PTT) 29.8 s 22.9-35.8 [facility] [id number] 02:01:00 Test Item Value Reference Range Interpretation Comments Basophils (test code = 0.6 See_Comment [Aut omated message] The Basophils) system which ge nerated this result tra nsmitted reference range : <=1.0. The reference r yared was not used to int erpret this result as normal/abnormal . [facility] C[id number] 02:01:00 Test Item Value Reference Range Interpretation Comments Hep Bs Ag (test code Negative *NA*(08/07/20 = Hep Bs Ag) 9:01 PM) [facility] CenterRkybgniNEOPFVFBIK8005-15-18 02:01:00 Test Item Value Reference Range Interpretation Comments PT (test code = PT) 13.2 s 12.0-14.7 [facility] [id number] 02:01:00 Test Item Value Reference Range Interpretation Comments INR (test code = INR) 1.00 1 0.85-1.17 [facility] CenterNjmcxanDZKFMVMAYE0787-42-08 02:01:00 Test Item Value Reference Range Interpretation Comments PTT (test code = PTT) 29.8 s 22.9-35.8 [facility] C[id number] 02:01:00 Test Item Value Reference Range Interpretation Comments Basophils (test code = 0.6 See_Comment [Aut omated message] The Basophils) system which ge nerated this result tra nsmitted reference range : <=1.0. The reference r yared was not used to int erpret this result as normal/abnormal . [facility] CenterMdqfffnWVECMCBFSQ6150-46-70 02:01:00 Test Item Value Reference Range Interpretation Comments Hep Bs Ag (test code Negative *NA*(08/07/20 = Hep Bs Ag) 9:01 PM) [facility] [employer] [id number] 21:23:00 Test Item Value Reference Range Interpretation Comments Glucose Lvl (test code = Glucose Lvl) 72 70-99 [facility] [id number] 21:23:00 Test Item Value Reference Range Interpretation Comments BUN (test code = BUN) 28 7-22 [facility] [id number] 21:23:00 Test Item Value Reference Range Interpretation Comments Creatinine Lvl (test code = Creatinine 9.63 0.50-1.40 Lvl) [facility] [id number] 21:23:00 Test Item Value Reference Range Interpretation Comments Sodium Lvl (test code = Sodium Lvl) 137 135-145 [facility] [id number] 21:23:00 Test Item Value Reference Range Interpretation Comments Potassium Lvl (test code = Potassium 3.6 3.5-5.1 Lvl) [facility] [id number] 21:23:00 Test Item Value Reference Range Interpretation Comments Chloride Lvl (test code = Chloride Lvl) 99 95-109 [facility] [id number] 21:23:00 Test Item Value Reference Range Interpretation Comments CO2 (test code = CO2) 32 24-32 [facility] [id number] 21:23:00 Test Item Value Reference Range Interpretation Comments AGAP (test code = AGAP) 9.6 10.0-20.0 [facility] [id number] 21:23:00 Test Item Value Reference Range Interpretation Comments Calcium Lvl (test code = Calcium Lvl) 8.3 8.5-10.5 [facility] [id number] 21:23:00 Test Item Value Reference Range Interpretation Comments eGFR (test code = eGFR) 5 [facility]2020-10-30 21:23:00 Test Item Value Reference Range Interpretation Comments Glucose Lvl (test code = Glucose Lvl) 72 70-99 [facility] [id number] 21:23:00 Test Item Value Reference Range Interpretation Comments BUN (test code = BUN) 28 7-22 [facility] [id number] 21:23:00 Test Item Value Reference Range Interpretation Comments Creatinine Lvl (test code = Creatinine 9.63 0.50-1.40 Lvl) [facility] [id number] 21:23:00 Test Item Value Reference Range Interpretation Comments Sodium Lvl (test code = Sodium Lvl) 137 135-145 [facility] [id number] 21:23:00 Test Item Value Reference Range Interpretation Comments Potassium Lvl (test code = Potassium 3.6 3.5-5.1 Lvl) [facility] [id number] 21:23:00 Test Item Value Reference Range Interpretation Comments Chloride Lvl (test code = Chloride Lvl) 99 95-109 [facility] [id number] 21:23:00 Test Item Value Reference Range Interpretation Comments CO2 (test code = CO2) 32 24-32 [facility] [id number] 21:23:00 Test Item Value Reference Range Interpretation Comments AGAP (test code = AGAP) 9.6 10.0-20.0 [facility] [id number] 21:23:00 Test Item Value Reference Range Interpretation Comments Calcium Lvl (test code = Calcium Lvl) 8.3 8.5-10.5 [facility] [id number] 21:23:00 Test Item Value Reference Range Interpretation Comments eGFR (test code = eGFR) 5 [facility] CenterQsmgzccSWWXSTNZQH3296-65-82 15:21:00 Test Item Value Reference Range Interpretation Comments Coronavirus (COVID-19) Not Detected JUVENCIO (test code = (08/07/20 10:21 AM) Coronavirus (COVID-19) JUVENCIO) [facility] CenterBislaftDSSEMKXIJL7572-04-08 15:21:00 Test Item Value Reference Range Interpretation Comments Coronavirus (COVID-19) Not Detected JUVENCIO (test code = (08/07/20 10:21 AM) Coronavirus (COVID-19) JUVENCIO) [facility] CenterCARD[facility]AC [id number] 08:08:00 Test Item Value Reference Range Interpretation Comments Total CK (test code = Total CK) 50 12-191 [facility] [id number] 08:08:00 Test Item Value Reference Range Interpretation Comments B/C Ratio (test code = B/C Ratio) 3 1 6-25 [facility] [id number] 08:08:00 Test Item Value Reference Range Interpretation Comments Total Protein (test code = Total 4.5 6.4-8.4 Protein) [facility]2020-10-30 08:08:00 Test Item Value Reference Range Interpretation Comments Albumin Lvl (test code = Albumin Lvl) 1.4 3.5-5.0 [facility] CenterD[facility] [id number] 08:08:00 Test Item Value Reference Range Interpretation Comments Globulin (test code = Globulin) 3.1 2.7-4.2 [facility] [employer] [id number] 08:08:00 Test Item Value Reference Range Interpretation Comments A/G Ratio (test code = A/G Ratio) 0.5 1 0.7-1.6 [facility] [employer] [id number] 08:08:00 Test Item Value Reference Range Interpretation Comments ALT (test code = ALT) 15 See_Comment [Auto mated message] The system which ge nerated this result transmit emerson reference range : <=65. The reference range was not used to interpr et this result as erinn l/abnormal. [facility]2020-10-30 08:08:00 Test Item Value Reference Range Interpretation Comments AST (test code = AST) 16 See_Comment [Auto mated message] The system which ge nerated this result transmit emerson reference range : <=37. The reference range was not used to interpr et this result as erinn l/abnormal. [facility]2020-10-30 08:08:00 Test Item Value Reference Range Interpretation Comments Alk Phos (test code = Alk Phos) 82 39-136 [facility] [employer] [id number] 08:08:00 Test Item Value Reference Range Interpretation Comments Bili Total (test code = Bili Total) 0.4 0.2-1.3 [facility] [employer] [id number] 08:08:00 Test Item Value Reference Range Interpretation Comments Magnesium Lvl (test code = Magnesium 1.7 1.8-2.4 Lvl) [facility]2020-10-30 08:08:00 Test Item Value Reference Range Interpretation Comments Phosphorus (test code = Phosphorus) 3.8 2.5-4.5 [facility] GpgjsjzAGAXSMKNJD0604-69-15 08:08:00 Test Item Value Reference Range Interpretation Comments PT (test code = PT) 13.0 s 12.0-14.7 [facility] WtdxmdxJWKIEUDSLF4895-15-00 08:08:00 Test Item Value Reference Range Interpretation Comments INR (test code = INR) 0.98 1 0.85-1.17 [facility] [id number] 08:08:00 Test Item Value Reference Range Interpretation Comments PTT (test code = PTT) 30.5 s 22.9-35.8 [facility] C[id number] 08:08:00 Test Item Value Reference Range Interpretation Comments Basophils # (test code 0.1 See_Comment [Aut omated message] The = Basophils #) system which generated this result tra nsmitted reference range : <=0.2. The reference r yared was not used to int erpret this result as normal/abnormal . [facility] ZebraannCARDIAC [id number] 08:08:00 Test Item Value Reference Range Interpretation Comments Total CK (test code = Total CK) 50 12-191 [facility] CloubrainCHEM [id number] 08:08:00 Test Item Value Reference Range Interpretation Comments B/C Ratio (test code = B/C Ratio) 3 1 6-25 [facility] [employer] [id number] 08:08:00 Test Item Value Reference Range Interpretation Comments Total Protein (test code = Total 4.5 6.4-8.4 Protein) [facility] [employer] [id number] 08:08:00 Test Item Value Reference Range Interpretation Comments Albumin Lvl (test code = Albumin Lvl) 1.4 3.5-5.0 [facility] [employer] [id number] 08:08:00 Test Item Value Reference Range Interpretation Comments Globulin (test code = Globulin) 3.1 2.7-4.2 [facility] [employer] [id number] 08:08:00 Test Item Value Reference Range Interpretation Comments A/G Ratio (test code = A/G Ratio) 0.5 1 0.7-1.6 [facility] [employer] [id number] 08:08:00 Test Item Value Reference Range Interpretation Comments ALT (test code = ALT) 15 See_Comment [Auto mated message] The system which ge nerated this result transmit emerson reference range : <=65. The reference range was not used to interpr et this result as erinn l/abnormal. [facility] [employer] [id number] 08:08:00 Test Item Value Reference Range Interpretation Comments AST (test code = AST) 16 See_Comment [Auto mated message] The system which ge nerated this result transmit emerson reference range : <=37. The reference range was not used to interpr et this result as erinn l/abnormal. [place] [id number] 08:08:00 Test Item Value Reference Range Interpretation Comments Alk Phos (test code = Alk Phos) 82 39-136 [place] [address]-10-30 08:08:00 Test Item Value Reference Range Interpretation Comments Bili Total (test code = Bili Total) 0.4 0.2-1.3 [place] [address]-10-30 08:08:00 Test Item Value Reference Range Interpretation Comments Magnesium Lvl (test code = Magnesium 1.7 1.8-2.4 Lvl) [place] [address]-10-30 08:08:00 Test Item Value Reference Range Interpretation Comments Phosphorus (test code = Phosphorus) 3.8 2.5-4.5 [place] [address]-10-30 08:08:00 Test Item Value Reference Range Interpretation Comments PT (test code = PT) 13.0 s 12.0-14.7 [place] [address]-10-30 08:08:00 Test Item Value Reference Range Interpretation Comments INR (test code = INR) 0.98 1 0.85-1.17 [place] [address]-10-30 08:08:00 Test Item Value Reference Range Interpretation Comments PTT (test code = PTT) 30.5 s 22.9-35.8 [place] [address]-10-30 08:08:00 Test Item Value Reference Range Interpretation Comments Basophils # (test code 0.1 See_Comment [Aut omated message] The = Basophils #) system which generated this result tra nsmitted reference range : <=0.2. The reference r yared was not used to int erpret this result as normal/abnormal . [place] [address]-10-30 02:04:00 Test Item Value Reference Range Interpretation Comments Basophils # (test code 0.1 See_Comment [Aut omated message] The = Basophils #) system which generated this result tra nsmitted reference range : <=0.2. The reference r yared was not used to int erpret this result as normal/abnormal . [place] [address]-10-30 02:04:00 Test Item Value Reference Range Interpretation Comments Basophils # (test code 0.1 See_Comment [Aut omated message] The = Basophils #) system which generated this result tra nsmitted reference range : <=0.2. The reference r yared was not used to int erpret this result as normal/abnormal . [facility] [employer] [id number] 01:34:00 Test Item Value Reference Range Interpretation Comments Total Protein (test code = Total 4.8 6.4-8.4 Protein) [facility] [id number] 01:34:00 Test Item Value Reference Range Interpretation Comments Albumin Lvl (test code = Albumin Lvl) 1.6 3.5-5.0 [facility] [employer] [id number] 01:34:00 Test Item Value Reference Range Interpretation Comments Globulin (test code = Globulin) 3.2 2.7-4.2 [facility] [employer] [id number] 01:34:00 Test Item Value Reference Range Interpretation Comments A/G Ratio (test code = A/G Ratio) 0.5 1 0.7-1.6 [facility] [id number] 01:34:00 Test Item Value Reference Range Interpretation Comments ALT (test code = ALT) 14 See_Comment [Auto mated message] The system which ge nerated this result transmit emerson reference range : <=65. The reference range was not used to interpr et this result as erinn l/abnormal. [facility] [employer] [id number] 01:34:00 Test Item Value Reference Range Interpretation Comments AST (test code = AST) 16 See_Comment [Auto mated message] The system which ge nerated this result transmit emerson reference range : <=37. The reference range was not used to interpr et this result as erinn l/abnormal. [facility] [employer] [id number] 01:34:00 Test Item Value Reference Range Interpretation Comments Alk Phos (test code = Alk Phos) 85 39-136 [facility] [employer] [id number] 01:34:00 Test Item Value Reference Range Interpretation Comments Bili Total (test code = Bili Total) 0.4 0.2-1.3 [facility] [id number] 01:34:00 Test Item Value Reference Range Interpretation Comments Bili Direct (test code no gt See_Comment [Aut omated message] The = Bili Direct) system which generated this result tra nsmitted reference range : <=0.3. The reference r yared was not used to int erpret this result as erinn l/abnormal. [facility] [employer] [id number] 01:34:00 Test Item Value Reference Range Interpretation Comments Bili Indirect Unable to See_Comment [Automated (test code = Bili Calculate message] T he system Indirect) which generated this result transmitted reference range : <=1.0. The reference range was not used to interpret this result as normal/abnormal . [facility] [employer] [id number] 01:34:00 Test Item Value Reference Range Interpretation Comments Total Protein (test code = Total 4.8 6.4-8.4 Protein) [facility] [employer] [id number] 01:34:00 Test Item Value Reference Range Interpretation Comments Albumin Lvl (test code = Albumin Lvl) 1.6 3.5-5.0 [facility] [employer] [id number] 01:34:00 Test Item Value Reference Range Interpretation Comments Globulin (test code = Globulin) 3.2 2.7-4.2 [facility] [employer] [id number] 01:34:00 Test Item Value Reference Range Interpretation Comments A/G Ratio (test code = A/G Ratio) 0.5 1 0.7-1.6 [facility]2020-10-30 01:34:00 Test Item Value Reference Range Interpretation Comments ALT (test code = ALT) 14 See_Comment [Auto mated message] The system which ge nerated this result transmit emerson reference range : <=65. The reference range was not used to interpr et this result as erinn l/abnormal. [facility] [employer] [id number] 01:34:00 Test Item Value Reference Range Interpretation Comments AST (test code = AST) 16 See_Comment [Auto mated message] The system which ge nerated this result transmit emerson reference range : <=37. The reference range was not used to interpr et this result as erinn l/abnormal. [facility] [employer] [id number] 01:34:00 Test Item Value Reference Range Interpretation Comments Alk Phos (test code = Alk Phos) 85 39-136 [facility] [employer] [id number] 01:34:00 Test Item Value Reference Range Interpretation Comments Bili Total (test code = Bili Total) 0.4 0.2-1.3 [facility]-10-30 01:34:00 Test Item Value Reference Range Interpretation Comments Bili Direct (test code no gt See_Comment [Aut omated message] The = Bili Direct) system which generated this result tra nsmitted reference range : <=0.3. The reference r yared was not used to int erpret this result as erinn l/abnormal. [facility] [id number] 01:34:00 Test Item Value Reference Range Interpretation Comments Bili Indirect Unable to See_Comment [Automated (test code = Bili Calculate message] T he system Indirect) which generated this result transmitted reference range : <=1.0. The reference range was not used to interpret this result as normal/abnormal . [facility] CenterCARD[facility] [id number] 22:24:00 Test Item Value Reference Range Interpretation Comments Troponin-I (test code 0.03 See_Comment [Auto mated message] The = Troponin-I) system which g enerated this result transmit emerson reference range : <=0.40. The reference r yared was not used to interpr et this result as erinn l/abnormal. [facility] [id number] 22:24:00 Test Item Value Reference Range Interpretation Comments Magnesium Lvl (test code = Magnesium 1.6 1.8-2.4 Lvl) [facility] [id number] 22:24:00 Test Item Value Reference Range Interpretation Comments Metamyelocytes (test code 1.0 See_Comment [ Automated message] = Metamyelocytes) The system which generated this result transmitted ref erence range: <=1.0. T he reference range was not used to int erpret this result as normal/abnormal . [facility] [id number] 22:24:00 Test Item Value Reference Range Interpretation Comments Myelocytes (test code = Myelocytes) 1.0 [facility]AqxwtgqKQGEITFFOT3738-99-27 22:24:00 Test Item Value Reference Range Interpretation Comments Toxic Gran (test code Moderate *ABN*(08/06/20 = Toxic Gran) 5:24 PM) [facility]EfsixboFRFJIYBFYR4287-13-17 22:24:00 Test Item Value Reference Range Interpretation Comments PT (test code = PT) 12.9 s 12.0-14.7 [facility] HospitalYisnssmAJJRGFAFFQ3598-27-57 22:24:00 Test Item Value Reference Range Interpretation Comments INR (test code = INR) 0.97 1 0.85-1.17 [facility] HospitalCybapgeMYSQEROCFF9666-09-21 22:24:00 Test Item Value Reference Range Interpretation Comments Bands (test code = 2.0 See_Comment [Automat ed message] The Bands) system which ge nerated this result transmit emerson reference range : <=11.0. The reference r yared was not used to interpr et this result as erinn l/abnormal. [facility] CenterTkpzadeVJRYRKZFOH3088-88-54 22:24:00 Test Item Value Reference Range Interpretation Comments Atypical Lymphs (test code = Atypical 0.0 Lymphs) [facility] HospitalTamiwoqZOLZYWCJKJ2914-97-48 22:24:00 Test Item Value Reference Range Interpretation Comments RBC Morph (test code = Normal (08/06/20 5:24 RBC Morph) PM) [facility] HospitalJdlwgmlQVXCBYRJHS2055-78-68 22:24:00 Test Item Value Reference Range Interpretation Comments Plt Morph (test code = Normal (08/06/20 5:24 Plt Morph) PM) [facility] CenterCARDIAC [id number] 22:24:00 Test Item Value Reference Range Interpretation Comments Troponin-I (test code 0.03 See_Comment [Auto mated message] The = Troponin-I) system which g enerated this result transmit emerson reference range : <=0.40. The reference r yared was not used to interpr et this result as erinn l/abnormal. [facility] CenterCHEM [id number] 22:24:00 Test Item Value Reference Range Interpretation Comments Magnesium Lvl (test code = Magnesium 1.6 1.8-2.4 Lvl) [facility] CenterEvgtyllDELOCJCFPA8217-40-39 22:24:00 Test Item Value Reference Range Interpretation Comments Metamyelocytes (test code 1.0 See_Comment [ Automated message] = Metamyelocytes) The system which generated this result transmitted ref erence range: <=1.0. T he reference range was not used to int erpret this result as normal/abnormal . [facility] Hospit[id number] 22:24:00 Test Item Value Reference Range Interpretation Comments Myelocytes (test code = Myelocytes) 1.0 [facility] CenterSwbvausKSVDYEMISP1682-39-22 22:24:00 Test Item Value Reference Range Interpretation Comments Toxic Gran (test code Moderate *ABN*(08/06/20 = Toxic Gran) 5:24 PM) [facility] HospitalSeokmedZDGBECAZMN6458-30-19 22:24:00 Test Item Value Reference Range Interpretation Comments PT (test code = PT) 12.9 s 12.0-14.7 [facility] CenterToixijvGNDMISBCHH7746-21-87 22:24:00 Test Item Value Reference Range Interpretation Comments INR (test code = INR) 0.97 1 0.85-1.17 [facility] HospitalDsceczcQHZERWOYDX4543-90-69 22:24:00 Test Item Value Reference Range Interpretation Comments Bands (test code = 2.0 See_Comment [Automat ed message] The Bands) system which ge nerated this result transmit emerson reference range : <=11.0. The reference r yared was not used to interpr et this result as erinn l/abnormal. [facility] CenterJicypyiYXSVHOINRB4062-98-62 22:24:00 Test Item Value Reference Range Interpretation Comments Atypical Lymphs (test code = Atypical 0.0 Lymphs) [facility] HospitalOqsehwjNMPWKVURMX2368-07-53 22:24:00 Test Item Value Reference Range Interpretation Comments RBC Morph (test code = Normal (08/06/20 5:24 RBC Morph) PM) [facility] HospitalGmuzczlDJHDLGPRRP5266-78-51 22:24:00 Test Item Value Reference Range Interpretation Comments Plt Morph (test code = Normal (08/06/20 5:24 Plt Morph) PM) [facility] CenterCARDIAC [id number] 13:32:00 Test Item Value Reference Range Interpretation Comments Troponin-I (test code 0.03 See_Comment [Auto mated message] The = Troponin-I) system which g enerated this result transmit emerson reference range : <=0.40. The reference r yared was not used to interpr et this result as erinn l/abnormal. [facility] CenterDurect Corp[facility] [id number] 13:32:00 Test Item Value Reference Range Interpretation Comments Glucose Lvl (test code = Glucose Lvl) 101 70-99 [facility] CenterDurect Corp[facility] [id number] 13:32:00 Test Item Value Reference Range Interpretation Comments BUN (test code = BUN) 25 7-22 [facility] CenterD[facility] [id number] 13:32:00 Test Item Value Reference Range Interpretation Comments Creatinine Lvl (test code = Creatinine 9.66 0.50-1.40 Lvl) [facility]2020-10-16 13:32:00 Test Item Value Reference Range Interpretation Comments Sodium Lvl (test code = Sodium Lvl) 132 135-145 [place] 440190-10-16 13:32:00 Test Item Value Reference Range Interpretation Comments Potassium Lvl (test code = Potassium 3.0 3.5-5.1 Lvl) [facility]2020-10-16 13:32:00 Test Item Value Reference Range Interpretation Comments Chloride Lvl (test code = Chloride Lvl) 91 95-109 [place] 440190-10-16 13:32:00 Test Item Value Reference Range Interpretation Comments CO2 (test code = CO2) 32 24-32 [place] 440190-10-16 13:32:00 Test Item Value Reference Range Interpretation Comments AGAP (test code = AGAP) 12.0 10.0-20.0 [place] 440190-10-16 13:32:00 Test Item Value Reference Range Interpretation Comments Calcium Lvl (test code = Calcium Lvl) 8.7 8.5-10.5 [place] 440190-10-16 13:32:00 Test Item Value Reference Range Interpretation Comments B/C Ratio (test code = B/C Ratio) 3 1 6-25 [place] [address]-10-16 13:32:00 Test Item Value Reference Range Interpretation Comments Total Protein (test code = Total 4.9 6.4-8.4 Protein) [facility]2020-10-16 13:32:00 Test Item Value Reference Range Interpretation Comments Albumin Lvl (test code = Albumin Lvl) 1.5 3.5-5.0 [place] 440190-10-16 13:32:00 Test Item Value Reference Range Interpretation Comments Globulin (test code = Globulin) 3.4 2.7-4.2 [place] 440190-10-16 13:32:00 Test Item Value Reference Range Interpretation Comments A/G Ratio (test code = A/G Ratio) 0.4 1 0.7-1.6 [place] [address]-10-16 13:32:00 Test Item Value Reference Range Interpretation Comments ALT (test code = ALT) 16 See_Comment [Auto mated message] The system which ge nerated this result transmit emerson reference range : <=65. The reference range was not used to interpr et this result as erinn l/abnormal. [facility] [id number] 13:32:00 Test Item Value Reference Range Interpretation Comments AST (test code = AST) 22 See_Comment [Auto mated message] The system which ge nerated this result transmit emerson reference range : <=37. The reference range was not used to interpr et this result as erinn l/abnormal. [facility] Center[facility] [id number] 13:32:00 Test Item Value Reference Range Interpretation Comments Alk Phos (test code = Alk Phos) 88 39-136 [facility] Center[facility] [id number] 13:32:00 Test Item Value Reference Range Interpretation Comments Bili Total (test code = Bili Total) 0.5 0.2-1.3 [facility] CenterDurect Corp. [id number] 13:32:00 Test Item Value Reference Range Interpretation Comments eGFR (test code = eGFR) 5 [facility] CenterGywbhqdBBAXLQIMTH6137-76-99 13:32:00 Test Item Value Reference Range Interpretation Comments WBC (test code = WBC) 6.2 3.7-10.4 [place] [address]-10-16 13:32:00 Test Item Value Reference Range Interpretation Comments RBC (test code = RBC) 2.89 4.70-6.10 [facility] CenterAvlhblkULLSHKDSQJ4368-36-38 13:32:00 Test Item Value Reference Range Interpretation Comments Hgb (test code = Hgb) 8.4 14.0-18.0 [facility] CenterRncsuwrUYZXLREXIP0087-04-28 13:32:00 Test Item Value Reference Range Interpretation Comments Hct (test code = Hct) 24.1 42.0-54.0 [facility] CenterChxtfwoFSSMBCVPHN9663-37-69 13:32:00 Test Item Value Reference Range Interpretation Comments MCV (test code = MCV) 83.3 80.0-94.0 [place] [address]-10-16 13:32:00 Test Item Value Reference Range Interpretation Comments MCH (test code = MCH) 29.0 pg 27.0-31.0 [facility] CenterPdpwsooWYDUGMXVTT8602-71-45 13:32:00 Test Item Value Reference Range Interpretation Comments MCHC (test code = MCHC) 34.8 32.0-36.0 [place] 031030-10-16 13:32:00 Test Item Value Reference Range Interpretation Comments RDW (test code = RDW) 13.6 11.5-14.5 [place] 031030-10-16 13:32:00 Test Item Value Reference Range Interpretation Comments Platelet (test code = Platelet) 221 133-450 [facility] CenterTzjzrqmHTSXNOMSYA8130-69-22 13:32:00 Test Item Value Reference Range Interpretation Comments MPV (test code = MPV) 6.6 7.4-10.4 [place] 031030-10-16 13:32:00 Test Item Value Reference Range Interpretation Comments Segs (test code = Segs) 73.5 45.0-75.0 [place] 031030-10-16 13:32:00 Test Item Value Reference Range Interpretation Comments Lymphocytes (test code = Lymphocytes) 11.4 20.0-40.0 [place] 031030-10-16 13:32:00 Test Item Value Reference Range Interpretation Comments Monocytes (test code = Monocytes) 8.7 2.0-12.0 [facility] CenterHqplxgiQMOPKASKUP1201-81-71 13:32:00 Test Item Value Reference Range Interpretation Comments Eosinophils (test code = 5.4 See_Comment [A utomated message] The Eosinophils) system which ge nerated this result tra nsmitted reference range : <=4.0. The reference r yared was not used to int erpret this result as normal/abnormal . [facility] CenterBxiwsmjPVJXMKBJHE1943-65-01 13:32:00 Test Item Value Reference Range Interpretation Comments Basophils (test code = 1.0 See_Comment [Aut omated message] The Basophils) system which ge nerated this result tra nsmitted reference range : <=1.0. The reference r yared was not used to int erpret this result as normal/abnormal . [facility] CenterTtntqroNOZZJLFVDM1540-35-97 13:32:00 Test Item Value Reference Range Interpretation Comments Neutrophils # (test code = Neutrophils 4.5 1.5-8.1 #) [place] 031030-10-16 13:32:00 Test Item Value Reference Range Interpretation Comments Lymphocytes # (test code = Lymphocytes 0.7 1.0-5.5 #) [facility] CenterKzoqaxuNGYROOQXUW0121-26-38 13:32:00 Test Item Value Reference Range Interpretation Comments Monocytes # (test code 0.5 See_Comment [Aut omated message] The = Monocytes #) system which generated this result tra nsmitted reference range : <=0.8. The reference r yared was not used to int erpret this result as normal/abnormal . [facility] CenterKplqprwVVOCKXNYWC8647-28-34 13:32:00 Test Item Value Reference Range Interpretation Comments Eosinophils # (test code 0.3 See_Comment [A utomated message] The = Eosinophils #) system whic h generated this result tra nsmitted reference range : <=0.5. The reference r yared was not used to int erpret this result as normal/abnormal . [facility] CenterDyeilpaDUPQAPQVXY9560-98-00 13:32:00 Test Item Value Reference Range Interpretation Comments Basophils # (test code 0.1 See_Comment [Aut omated message] The = Basophils #) system which generated this result tra nsmitted reference range : <=0.2. The reference r yared was not used to int erpret this result as normal/abnormal . [facility] CenterCARDIAC [id number] 13:32:00 Test Item Value Reference Range Interpretation Comments Troponin-I (test code 0.03 See_Comment [Auto mated message] The = Troponin-I) system which g enerated this result transmit emerson reference range : <=0.40. The reference r yared was not used to interpr et this result as erinn l/abnormal. [facility] [employer] [id number] 13:32:00 Test Item Value Reference Range Interpretation Comments Glucose Lvl (test code = Glucose Lvl) 101 70-99 [facility] [employer] [id number] 13:32:00 Test Item Value Reference Range Interpretation Comments BUN (test code = BUN) 25 7-22 [facility] [employer] [id number] 13:32:00 Test Item Value Reference Range Interpretation Comments Creatinine Lvl (test code = Creatinine 9.66 0.50-1.40 Lvl) [facility] [employer] [id number] 13:32:00 Test Item Value Reference Range Interpretation Comments Sodium Lvl (test code = Sodium Lvl) 132 135-145 [facility] CenterScribble PressUNC [id number] 13:32:00 Test Item Value Reference Range Interpretation Comments Potassium Lvl (test code = Potassium 3.0 3.5-5.1 Lvl) [facility] CenterScribble PressSHAWN VILLE [id number] 13:32:00 Test Item Value Reference Range Interpretation Comments Chloride Lvl (test code = Chloride Lvl) 91 95-109 [facility] CenterScribble PressSHAWN VILLE [id number] 13:32:00 Test Item Value Reference Range Interpretation Comments CO2 (test code = CO2) 32 24-32 [facility] CenterScribble PressUNC [id number] 13:32:00 Test Item Value Reference Range Interpretation Comments AGAP (test code = AGAP) 12.0 10.0-20.0 [facility] CenterFriend Trusted [id number] 13:32:00 Test Item Value Reference Range Interpretation Comments Calcium Lvl (test code = Calcium Lvl) 8.7 8.5-10.5 [facility] Center[facility] [id number] 13:32:00 Test Item Value Reference Range Interpretation Comments B/C Ratio (test code = B/C Ratio) 3 1 6-25 [place] [address]-10-16 13:32:00 Test Item Value Reference Range Interpretation Comments Total Protein (test code = Total 4.9 6.4-8.4 Protein) [facility]2020-10-16 13:32:00 Test Item Value Reference Range Interpretation Comments Albumin Lvl (test code = Albumin Lvl) 1.5 3.5-5.0 [facility] Center[facility] [id number] 13:32:00 Test Item Value Reference Range Interpretation Comments Globulin (test code = Globulin) 3.4 2.7-4.2 [place] [address]-10-16 13:32:00 Test Item Value Reference Range Interpretation Comments A/G Ratio (test code = A/G Ratio) 0.4 1 0.7-1.6 [place] [address]-10-16 13:32:00 Test Item Value Reference Range Interpretation Comments ALT (test code = ALT) 16 See_Comment [Auto mated message] The system which ge nerated this result transmit emerson reference range : <=65. The reference range was not used to interpr et this result as erinn l/abnormal. [facility]2020-10-16 13:32:00 Test Item Value Reference Range Interpretation Comments AST (test code = AST) 22 See_Comment [Auto mated message] The system which ge nerated this result transmit emerson reference range : <=37. The reference range was not used to interpr et this result as erinn l/abnormal. [place] 440190-10-16 13:32:00 Test Item Value Reference Range Interpretation Comments Alk Phos (test code = Alk Phos) 88 39-136 [facility] CenterDurect Corp. [id number] 13:32:00 Test Item Value Reference Range Interpretation Comments Bili Total (test code = Bili Total) 0.5 0.2-1.3 [facility] CenterDurect Corp. [id number] 13:32:00 Test Item Value Reference Range Interpretation Comments eGFR (test code = eGFR) 5 [facility] CenterNyahydpZEPQFFOTFX3814-05-04 13:32:00 Test Item Value Reference Range Interpretation Comments WBC (test code = WBC) 6.2 3.7-10.4 [place] 031030-10-16 13:32:00 Test Item Value Reference Range Interpretation Comments RBC (test code = RBC) 2.89 4.70-6.10 [place] [address]-10-16 13:32:00 Test Item Value Reference Range Interpretation Comments Hgb (test code = Hgb) 8.4 14.0-18.0 [place] [address]-10-16 13:32:00 Test Item Value Reference Range Interpretation Comments Hct (test code = Hct) 24.1 42.0-54.0 [place] [address]-10-16 13:32:00 Test Item Value Reference Range Interpretation Comments MCV (test code = MCV) 83.3 80.0-94.0 [place] [address]-10-16 13:32:00 Test Item Value Reference Range Interpretation Comments MCH (test code = MCH) 29.0 pg 27.0-31.0 [place] [address]-10-16 13:32:00 Test Item Value Reference Range Interpretation Comments MCHC (test code = MCHC) 34.8 32.0-36.0 [place] [address]-10-16 13:32:00 Test Item Value Reference Range Interpretation Comments RDW (test code = RDW) 13.6 11.5-14.5 [place] 031030-10-16 13:32:00 Test Item Value Reference Range Interpretation Comments Platelet (test code = Platelet) 221 133-450 [place] 031030-10-16 13:32:00 Test Item Value Reference Range Interpretation Comments MPV (test code = MPV) 6.6 7.4-10.4 [place] 031030-10-16 13:32:00 Test Item Value Reference Range Interpretation Comments Segs (test code = Segs) 73.5 45.0-75.0 [place] 031030-10-16 13:32:00 Test Item Value Reference Range Interpretation Comments Lymphocytes (test code = Lymphocytes) 11.4 20.0-40.0 [place] 031030-10-16 13:32:00 Test Item Value Reference Range Interpretation Comments Monocytes (test code = Monocytes) 8.7 2.0-12.0 [place] 031030-10-16 13:32:00 Test Item Value Reference Range Interpretation Comments Eosinophils (test code = 5.4 See_Comment [A utomated message] The Eosinophils) system which ge nerated this result tra nsmitted reference range : <=4.0. The reference r yared was not used to int erpret this result as normal/abnormal . [place] [address]-10-16 13:32:00 Test Item Value Reference Range Interpretation Comments Basophils (test code = 1.0 See_Comment [Aut omated message] The Basophils) system which ge nerated this result tra nsmitted reference range : <=1.0. The reference r yared was not used to int erpret this result as normal/abnormal . [facility] CenterKvvssngRHQCKJBLEP9951-76-89 13:32:00 Test Item Value Reference Range Interpretation Comments Neutrophils # (test code = Neutrophils 4.5 1.5-8.1 #) [place] [address]-10-16 13:32:00 Test Item Value Reference Range Interpretation Comments Lymphocytes # (test code = Lymphocytes 0.7 1.0-5.5 #) [place] 031030-10-16 13:32:00 Test Item Value Reference Range Interpretation Comments Monocytes # (test code 0.5 See_Comment [Aut omated message] The = Monocytes #) system which generated this result tra nsmitted reference range : <=0.8. The reference r yared was not used to int erpret this result as normal/abnormal . [place] [address]-10-16 13:32:00 Test Item Value Reference Range Interpretation Comments Eosinophils # (test code 0.3 See_Comment [A utomated message] The = Eosinophils #) system whic h generated this result tra nsmitted reference range : <=0.5. The reference r yared was not used to int erpret this result as normal/abnormal . [place] 031030-10-16 13:32:00 Test Item Value Reference Range Interpretation Comments Basophils # (test code 0.1 See_Comment [Aut omated message] The = Basophils #) system which generated this result tra nsmitted reference range : <=0.2. The reference r yared was not used to int erpret this result as normal/abnormal . [place] 440190-10-07 08:13:00 Test Item Value Reference Range Interpretation Comments Glucose Lvl (test code = Glucose Lvl) 125 70-99 [facility] CenterDure[facility] [id number] 08:13:00 Test Item Value Reference Range Interpretation Comments BUN (test code = BUN) 26 7-22 [facility] CenterD[facility] [id number] 08:13:00 Test Item Value Reference Range Interpretation Comments Creatinine Lvl (test code = Creatinine 9.23 0.50-1.40 Lvl) [place] 440190-10-07 08:13:00 Test Item Value Reference Range Interpretation Comments Sodium Lvl (test code = Sodium Lvl) 135 135-145 [facility] CenterD[facility] [id number] 08:13:00 Test Item Value Reference Range Interpretation Comments Potassium Lvl (test code = Potassium 3.8 3.5-5.1 Lvl) [facility] [id number] 08:13:00 Test Item Value Reference Range Interpretation Comments Chloride Lvl (test code = Chloride Lvl) 97 95-109 [place] 440190-10-07 08:13:00 Test Item Value Reference Range Interpretation Comments CO2 (test code = CO2) 28 24-32 [facility] CenterD[facility] [id number] 08:13:00 Test Item Value Reference Range Interpretation Comments Calcium Lvl (test code = Calcium Lvl) 9.0 8.5-10.5 [facility]2020-10-07 08:13:00 Test Item Value Reference Range Interpretation Comments AGAP (test code = AGAP) 13.8 10.0-20.0 [facility]2020-10-07 08:13:00 Test Item Value Reference Range Interpretation Comments eGFR (test code = eGFR) 6 [facility]2020-10-07 08:13:00 Test Item Value Reference Range Interpretation Comments Glucose Lvl (test code = Glucose Lvl) 125 70-99 [facility]2020-10-07 08:13:00 Test Item Value Reference Range Interpretation Comments BUN (test code = BUN) 26 7-22 [facility]2020-10-07 08:13:00 Test Item Value Reference Range Interpretation Comments Creatinine Lvl (test code = Creatinine 9.23 0.50-1.40 Lvl) [facility]2020-10-07 08:13:00 Test Item Value Reference Range Interpretation Comments Sodium Lvl (test code = Sodium Lvl) 135 135-145 [facility]2020-10-07 08:13:00 Test Item Value Reference Range Interpretation Comments Potassium Lvl (test code = Potassium 3.8 3.5-5.1 Lvl) [facility]2020-10-07 08:13:00 Test Item Value Reference Range Interpretation Comments Chloride Lvl (test code = Chloride Lvl) 97 95-109 [facility]2020-10-07 08:13:00 Test Item Value Reference Range Interpretation Comments CO2 (test code = CO2) 28 24-32 [facility]2020-10-07 08:13:00 Test Item Value Reference Range Interpretation Comments Calcium Lvl (test code = Calcium Lvl) 9.0 8.5-10.5 [facility]2020-10-07 08:13:00 Test Item Value Reference Range Interpretation Comments AGAP (test code = AGAP) 13.8 10.0-20.0 [facility]2020-10-07 08:13:00 Test Item Value Reference Range Interpretation Comments eGFR (test code = eGFR) 6 [facility] CenterMOLECULAR [id number] 22:34:00 Test Item Value Reference Range Interpretation Comments C difficile DNA (test Negative (07/14/20 5:34 code = C difficile DNA) PM) [facility] [id number] 22:34:00 Test Item Value Reference Range Interpretation Comments Fecal Leukocyte (test None Seen (07/14/20 code = Fecal Leukocyte) 5:34 PM) [facility] CenterannMOLECULAR [id number] 22:34:00 Test Item Value Reference Range Interpretation Comments C difficile DNA (test Negative (07/14/20 5:34 code = C difficile DNA) PM) [facility]annUR[facility] [id number] 22:34:00 Test Item Value Reference Range Interpretation Comments Fecal Leukocyte (test None Seen (07/14/20 code = Fecal Leukocyte) 5:34 PM) [facility] CenterCHEM [id number] 08:37:00 Test Item Value Reference Range Interpretation Comments Glucose Lvl (test code = Glucose Lvl) 125 70-99 [facility] CenterD[facility] [id number] 08:37:00 Test Item Value Reference Range Interpretation Comments BUN (test code = BUN) 30 7-22 [facility] CenterannDurect Corp. [id number] 08:37:00 Test Item Value Reference Range Interpretation Comments Creatinine Lvl (test code = Creatinine 9.56 0.50-1.40 Lvl) [facility] CenterannCHEM [id number] 08:37:00 Test Item Value Reference Range Interpretation Comments Sodium Lvl (test code = Sodium Lvl) 136 135-145 [facility] CenterannDurect [facility] [id number] 08:37:00 Test Item Value Reference Range Interpretation Comments Potassium Lvl (test code = Potassium 3.4 3.5-5.1 Lvl) [facility] CenterannDurect [facility] [id number] 08:37:00 Test Item Value Reference Range Interpretation Comments Chloride Lvl (test code = Chloride Lvl) 99 95-109 [facility] CenterannDurect [facility] [id number] 08:37:00 Test Item Value Reference Range Interpretation Comments CO2 (test code = CO2) 28 24-32 [facility]ann[facility] [id number] 08:37:00 Test Item Value Reference Range Interpretation Comments Calcium Lvl (test code = Calcium Lvl) 8.6 8.5-10.5 [facility] CenterannDure[facility] [id number] 08:37:00 Test Item Value Reference Range Interpretation Comments AGAP (test code = AGAP) 12.4 10.0-20.0 [facility]2020-10-06 08:37:00 Test Item Value Reference Range Interpretation Comments eGFR (test code = eGFR) 5 [facility]2020-10-06 08:37:00 Test Item Value Reference Range Interpretation Comments Glucose Lvl (test code = Glucose Lvl) 125 70-99 [place] [id number] 08:37:00 Test Item Value Reference Range Interpretation Comments BUN (test code = BUN) 30 7-22 [place] [id number] 08:37:00 Test Item Value Reference Range Interpretation Comments Creatinine Lvl (test code = Creatinine 9.56 0.50-1.40 Lvl) [place] [id number] 08:37:00 Test Item Value Reference Range Interpretation Comments Sodium Lvl (test code = Sodium Lvl) 136 135-145 [place] [id number] 08:37:00 Test Item Value Reference Range Interpretation Comments Potassium Lvl (test code = Potassium 3.4 3.5-5.1 Lvl) [place] [id number] 08:37:00 Test Item Value Reference Range Interpretation Comments Chloride Lvl (test code = Chloride Lvl) 99 95-109 [facility]2020-10-06 08:37:00 Test Item Value Reference Range Interpretation Comments CO2 (test code = CO2) 28 24-32 [facility]2020-10-06 08:37:00 Test Item Value Reference Range Interpretation Comments Calcium Lvl (test code = Calcium Lvl) 8.6 8.5-10.5 [facility]2020-10-06 08:37:00 Test Item Value Reference Range Interpretation Comments AGAP (test code = AGAP) 12.4 10.0-20.0 [facility] CenterDurect Corp. [id number] 08:37:00 Test Item Value Reference Range Interpretation Comments eGFR (test code = eGFR) 5 [facility]2020-10-06 01:30:00 Test Item Value Reference Range Interpretation Comments Color BF (test code = Light Yellow (07/13/20 Color BF) 8:30 PM) [place] [id number] 01:30:00 Test Item Value Reference Range Interpretation Comments Clarity BF (test code = Clear (07/13/20 8:30 Clarity BF) PM) [facility]ann[facility] [id number] 01:30:00 Test Item Value Reference Range Interpretation Comments Supernat BF (test code Colorless (07/13/20 8:30 = Supernat BF) PM) [facility] [id number] 01:30:00 Test Item Value Reference Range Interpretation Comments Nucleated Cells BF (test code = 267 Nucleated Cells BF) [facility]2020-10-06 01:30:00 Test Item Value Reference Range Interpretation Comments RBC BF (test code = RBC BF) 365 [facility]ann[facility] [id number] 01:30:00 Test Item Value Reference Range Interpretation Comments CellCnt BF Type (test Periton (07/13/20 8:30 code = CellCnt BF Type) PM) [facility]2020-10-06 01:30:00 Test Item Value Reference Range Interpretation Comments Neutrophils BF (test code = Neutrophils 23 BF) [facility]2020-10-06 01:30:00 Test Item Value Reference Range Interpretation Comments Lymph BF (test code = Lymph BF) 16 [facility] [id number] 01:30:00 Test Item Value Reference Range Interpretation Comments Macrophage BF (test code = Macrophage 53 BF) [facility]2020-10-06 01:30:00 Test Item Value Reference Range Interpretation Comments Eos BF (test code = Eos BF) 6 [facility]2020-10-06 01:30:00 Test Item Value Reference Range Interpretation Comments Meso BF (test code = Meso BF) 2 [facility] CenterGram Stain [id number] 01:30:00 Test Item Value Reference Range Interpretation Comments Gram Stain Report Few WBC's No Organisms (test code = Gram Seen Stain Report) [facility] CenterCulture: Aspirate/Body Fluid/[id number] 01:30:00 Test Item Value Reference Range Interpretation Comments Culture: Aspirate/Body Fluid/Tissue No Growth (test code = Culture: Aspirate/Body Fluid/Tissue) [facility] [id number] 01:30:00 Test Item Value Reference Range Interpretation Comments Color BF (test code = Light Yellow (07/13/20 Color BF) 8:30 PM) [facility]ann[facility] [id number] 01:30:00 Test Item Value Reference Range Interpretation Comments Clarity BF (test code = Clear (07/13/20 8:30 Clarity BF) PM) [facility] [id number] 01:30:00 Test Item Value Reference Range Interpretation Comments Supernat BF (test code Colorless (07/13/20 8:30 = Supernat BF) PM) [facility] [id number] 01:30:00 Test Item Value Reference Range Interpretation Comments Nucleated Cells BF (test code = 267 Nucleated Cells BF) [facility]2020-10-06 01:30:00 Test Item Value Reference Range Interpretation Comments RBC BF (test code = RBC BF) 365 [facility]2020-10-06 01:30:00 Test Item Value Reference Range Interpretation Comments CellCnt BF Type (test Periton (07/13/20 8:30 code = CellCnt BF Type) PM) [facility] [id number] 01:30:00 Test Item Value Reference Range Interpretation Comments Neutrophils BF (test code = Neutrophils 23 BF) [facility]2020-10-06 01:30:00 Test Item Value Reference Range Interpretation Comments Lymph BF (test code = Lymph BF) 16 [facility]2020-10-06 01:30:00 Test Item Value Reference Range Interpretation Comments Macrophage BF (test code = Macrophage 53 BF) [facility]2020-10-06 01:30:00 Test Item Value Reference Range Interpretation Comments Eos BF (test code = Eos BF) 6 [facility] [id number] 01:30:00 Test Item Value Reference Range Interpretation Comments Meso BF (test code = Meso BF) 2 [facility] CenterGram Stain [id number] 01:30:00 Test Item Value Reference Range Interpretation Comments Gram Stain Report Few WBC's No Organisms (test code = Gram Seen Stain Report) [facility] CenterannCulture: Aspirate/Body Fluid/[id number] 01:30:00 Test Item Value Reference Range Interpretation Comments Culture: Aspirate/Body Fluid/Tissue No Growth (test code = Culture: Aspirate/Body Fluid/Tissue) [facility] CenterFriend Trusted [id number] 08:35:00 Test Item Value Reference Range Interpretation Comments Glucose Lvl (test code = Glucose Lvl) 113 70-99 [facility] CenterFriend Trust[facility] [id number] 08:35:00 Test Item Value Reference Range Interpretation Comments BUN (test code = BUN) 29 7- [facility]2020-10-05 08:35:00 Test Item Value Reference Range Interpretation Comments Creatinine Lvl (test code = Creatinine 9.77 0.50-1.40 Lvl) [facility]2020-10-05 08:35:00 Test Item Value Reference Range Interpretation Comments Sodium Lvl (test code = Sodium Lvl) 133 135-145 [facility] CenterFriend [facility] [id number] 08:35:00 Test Item Value Reference Range Interpretation Comments Potassium Lvl (test code = Potassium 3.4 3.5-5.1 Lvl) [facility] Center[facility] [id number] 08:35:00 Test Item Value Reference Range Interpretation Comments Chloride Lvl (test code = Chloride Lvl) 97 95-109 [facility] CenterFriend [facility] [id number] 08:35:00 Test Item Value Reference Range Interpretation Comments CO2 (test code = CO2) 31 24-32 [facility] CenterFriend [facility] [id number] 08:35:00 Test Item Value Reference Range Interpretation Comments Calcium Lvl (test code = Calcium Lvl) 8.8 8.5-10.5 [facility] CenterFriend [facility] [id number] 08:35:00 Test Item Value Reference Range Interpretation Comments AGAP (test code = AGAP) 8.4 10.0-20.0 [facility] CenterFriend [facility] [id number] 08:35:00 Test Item Value Reference Range Interpretation Comments eGFR (test code = eGFR) 5 [facility] CenterFriend [facility] [id number] 08:35:00 Test Item Value Reference Range Interpretation Comments Glucose Lvl (test code = Glucose Lvl) 113 70-99 [facility] CenterFriend [facility] [id number] 08:35:00 Test Item Value Reference Range Interpretation Comments BUN (test code = BUN) 29 7-22 [facility] CenterFriend [facility] [id number] 08:35:00 Test Item Value Reference Range Interpretation Comments Creatinine Lvl (test code = Creatinine 9.77 0.50-1.40 Lvl) [facility] CenterFriend [facility] [id number] 08:35:00 Test Item Value Reference Range Interpretation Comments Sodium Lvl (test code = Sodium Lvl) 133 135-145 [place] [id number] 08:35:00 Test Item Value Reference Range Interpretation Comments Potassium Lvl (test code = Potassium 3.4 3.5-5.1 Lvl) [place] [id number] 08:35:00 Test Item Value Reference Range Interpretation Comments Chloride Lvl (test code = Chloride Lvl) 97 95-109 [place] [id number] 08:35:00 Test Item Value Reference Range Interpretation Comments CO2 (test code = CO2) 31 24-32 [place] [id number] 08:35:00 Test Item Value Reference Range Interpretation Comments Calcium Lvl (test code = Calcium Lvl) 8.8 8.5-10.5 [place] [id number] 08:35:00 Test Item Value Reference Range Interpretation Comments AGAP (test code = AGAP) 8.4 10.0-20.0 [place] [id number] 08:35:00 Test Item Value Reference Range Interpretation Comments eGFR (test code = eGFR) 5 [facility]2020-10-05 00:15:00 Test Item Value Reference Range Interpretation Comments Color BF (test code = Light Yellow (07/12/20 Color BF) 7:15 PM) [place] [id number] 00:15:00 Test Item Value Reference Range Interpretation Comments Clarity BF (test code = Clear (07/12/20 7:15 Clarity BF) PM) [place] [id number] 00:15:00 Test Item Value Reference Range Interpretation Comments Supernat BF (test code Colorless (07/12/20 7:15 = Supernat BF) PM) [place] [id number] 00:15:00 Test Item Value Reference Range Interpretation Comments Nucleated Cells BF (test code = 227 Nucleated Cells BF) [place] [id number] 00:15:00 Test Item Value Reference Range Interpretation Comments RBC BF (test code = RBC BF) 247 [facility]2020-10-05 00:15:00 Test Item Value Reference Range Interpretation Comments Neutrophils BF (test code = Neutrophils 27 BF) [place] [id number] 00:15:00 Test Item Value Reference Range Interpretation Comments Lymph BF (test code = Lymph BF) 15 [facility] CenterannBODY [id number] 00:15:00 Test Item Value Reference Range Interpretation Comments Macrophage BF (test code = Macrophage 52 BF) [facility]annBODY [id number] 00:15:00 Test Item Value Reference Range Interpretation Comments Eos BF (test code = Eos BF) 3 [facility] CenterannBODY [id number] 00:15:00 Test Item Value Reference Range Interpretation Comments Meso BF (test code = Few (07/12/20 7:15 PM) Meso BF) [facility]ann[facility] [id number] 00:15:00 Test Item Value Reference Range Interpretation Comments Other BF (test code = See Note 4(07/12/20 Other BF) 7:15 PM) [facility]ann[facility] [id number] 00:15:00 Test Item Value Reference Range Interpretation Comments CellCnt BF Type (test Periton (07/12/20 7:15 code = CellCnt BF Type) PM) [facility] CenterGram Stain [id number] 00:15:00 Test Item Value Reference Range Interpretation Comments Gram Stain Report Rare WBC's No Organisms (test code = Gram Seen Stain Report) [facility] CenterCulture: Aspirate/Body Fluid/[id number] 00:15:00 Test Item Value Reference Range Interpretation Comments Culture: Aspirate/Body Fluid/Tissue No Growth (test code = Culture: Aspirate/Body Fluid/Tissue) [facility] [id number] 00:15:00 Test Item Value Reference Range Interpretation Comments Color BF (test code = Light Yellow (07/12/20 Color BF) 7:15 PM) [facility]annP[facility] [id number] 00:15:00 Test Item Value Reference Range Interpretation Comments Clarity BF (test code = Clear (07/12/20 7:15 Clarity BF) PM) [facility]ann[facility] [id number] 00:15:00 Test Item Value Reference Range Interpretation Comments Supernat BF (test code Colorless (07/12/20 7:15 = Supernat BF) PM) [facility]ann[facility] [id number] 00:15:00 Test Item Value Reference Range Interpretation Comments Nucleated Cells BF (test code = 227 Nucleated Cells BF) [facility]2020-10-05 00:15:00 Test Item Value Reference Range Interpretation Comments RBC BF (test code = RBC BF) 247 [facility]annBODY [id number] 00:15:00 Test Item Value Reference Range Interpretation Comments Neutrophils BF (test code = Neutrophils 27 BF) [facility]annBODY [id number] 00:15:00 Test Item Value Reference Range Interpretation Comments Lymph BF (test code = Lymph BF) 15 [facility] [id number] 00:15:00 Test Item Value Reference Range Interpretation Comments Macrophage BF (test code = Macrophage 52 BF) [facility]annBODY [id number] 00:15:00 Test Item Value Reference Range Interpretation Comments Eos BF (test code = Eos BF) 3 [facility] [id number] 00:15:00 Test Item Value Reference Range Interpretation Comments Meso BF (test code = Few (07/12/20 7:15 PM) [place]o BF) [facility]annBODY [id number] 00:15:00 Test Item Value Reference Range Interpretation Comments Other BF (test code = See Note 4(07/12/20 Other BF) 7:15 PM) [facility]annBODY [id number] 00:15:00 Test Item Value Reference Range Interpretation Comments CellCnt BF Type (test Periton (07/12/20 7:15 code = CellCnt BF Type) PM) [facility] CenterGram Stain [id number] 00:15:00 Test Item Value Reference Range Interpretation Comments Gram Stain Report Rare WBC's No Organisms (test code = Gram Seen Stain Report) [facility] CenterannCulture: Aspirate/Body Fluid/[id number] 00:15:00 Test Item Value Reference Range Interpretation Comments Culture: Aspirate/Body Fluid/Tissue No Growth (test code = Culture: Aspirate/Body Fluid/Tissue) [facility] [id number] 09:50:00 Test Item Value Reference Range Interpretation Comments Segs (test code = Segs) 74.0 45.0-75.0 [facility] [id number] 09:50:00 Test Item Value Reference Range Interpretation Comments Lymphocytes (test code = Lymphocytes) 14.8 20.0-40.0 [facility] [id number] 09:50:00 Test Item Value Reference Range Interpretation Comments Monocytes (test code = Monocytes) 7.1 2.0-12.0 [facility] [id number] 09:50:00 Test Item Value Reference Range Interpretation Comments Eosinophils (test code = 3.5 See_Comment [A utomated message] The Eosinophils) system which ge nerated this result tra nsmitted reference range : <=4.0. The reference r yared was not used to int erpret this result as normal/abnormal . [facility] CenterAbbjsrwWJASQRHUSQ4834-02-25 09:50:00 Test Item Value Reference Range Interpretation Comments Basophils (test code = 0.6 See_Comment [Aut omated message] The Basophils) system which ge nerated this result tra nsmitted reference range : <=1.0. The reference r yared was not used to int erpret this result as normal/abnormal . [facility] C[id number] 09:50:00 Test Item Value Reference Range Interpretation Comments Neutrophils # (test code = Neutrophils 4.9 1.5-8.1 #) [facility] CenterOdquseaFQSVCQLYML4963-27-40 09:50:00 Test Item Value Reference Range Interpretation Comments Lymphocytes # (test code = Lymphocytes 1.0 1.0-5.5 #) [facility] [id number] 09:50:00 Test Item Value Reference Range Interpretation Comments Monocytes # (test code 0.5 See_Comment [Aut omated message] The = Monocytes #) system which generated this result tra nsmitted reference range : <=0.8. The reference r yared was not used to int erpret this result as normal/abnormal . [facility] CenterXqbewpkRPDRWUKWWP6856-11-65 09:50:00 Test Item Value Reference Range Interpretation Comments Eosinophils # (test code 0.2 See_Comment [A utomated message] The = Eosinophils #) system whic h generated this result tra nsmitted reference range : <=0.5. The reference r yared was not used to int erpret this result as normal/abnormal . [facility] CenterIyxcudyQRPHFQQSJU8705-47-95 09:50:00 Test Item Value Reference Range Interpretation Comments WBC (test code = WBC) 6.7 3.7-10.4 [facility] [id number] 09:50:00 Test Item Value Reference Range Interpretation Comments RBC (test code = RBC) 2.86 4.70-6.10 [place] 031030-10-04 09:50:00 Test Item Value Reference Range Interpretation Comments Hgb (test code = Hgb) 8.3 14.0-18.0 [facility] [id number] 09:50:00 Test Item Value Reference Range Interpretation Comments Hct (test code = Hct) 24.4 42.0-54.0 [facility] Cent[id number] 09:50:00 Test Item Value Reference Range Interpretation Comments MCV (test code = MCV) 85.1 80.0-94.0 [facility] [id number] 09:50:00 Test Item Value Reference Range Interpretation Comments MCH (test code = MCH) 29.0 pg 27.0-31.0 [facility] CenterSipcekkYLKBBKZNZV5303-86-09 09:50:00 Test Item Value Reference Range Interpretation Comments MCHC (test code = MCHC) 34.1 32.0-36.0 [facility] [id number] 09:50:00 Test Item Value Reference Range Interpretation Comments RDW (test code = RDW) 14.1 11.5-14.5 [facility] C[id number] 09:50:00 Test Item Value Reference Range Interpretation Comments Platelet (test code = Platelet) 209 133-450 [facility] C[id number] 09:50:00 Test Item Value Reference Range Interpretation Comments MPV (test code = MPV) 6.6 7.4-10.4 [facility] CenterGcjztjjIFUSMJMHKQ7891-70-50 09:50:00 Test Item Value Reference Range Interpretation Comments Vanco Lvl (test code = Vanco Lvl) 13.1 [facility] C[id number] 09:50:00 Test Item Value Reference Range Interpretation Comments Segs (test code = Segs) 74.0 45.0-75.0 [facility] CenterLqlvedxWJMXSOIEPK7443-43-01 09:50:00 Test Item Value Reference Range Interpretation Comments Lymphocytes (test code = Lymphocytes) 14.8 20.0-40.0 [facility] CenterBvmstejKFSZWQLROX4493-17-75 09:50:00 Test Item Value Reference Range Interpretation Comments Monocytes (test code = Monocytes) 7.1 2.0-12.0 [facility] Cent[id number] 09:50:00 Test Item Value Reference Range Interpretation Comments Eosinophils (test code = 3.5 See_Comment [A utomated message] The Eosinophils) system which ge nerated this result tra nsmitted reference range : <=4.0. The reference r yared was not used to int erpret this result as normal/abnormal . [facility] CenterHnbiidsOPDNINQYDA7708-83-58 09:50:00 Test Item Value Reference Range Interpretation Comments Basophils (test code = 0.6 See_Comment [Aut omated message] The Basophils) system which ge nerated this result tra nsmitted reference range : <=1.0. The reference r yared was not used to int erpret this result as normal/abnormal . [facility] CenterUovddecESVPTDXQKE8692-65-01 09:50:00 Test Item Value Reference Range Interpretation Comments Neutrophils # (test code = Neutrophils 4.9 1.5-8.1 #) [facility] CenterGwkbkomWCUADZEECA9968-36-75 09:50:00 Test Item Value Reference Range Interpretation Comments Lymphocytes # (test code = Lymphocytes 1.0 1.0-5.5 #) [facility] CenterMgjdefkLHSFVHGSCW9460-00-20 09:50:00 Test Item Value Reference Range Interpretation Comments Monocytes # (test code 0.5 See_Comment [Aut omated message] The = Monocytes #) system which generated this result tra nsmitted reference range : <=0.8. The reference r yared was not used to int erpret this result as normal/abnormal . [facility] CenterKahrsghISKDHBTWCV4158-05-95 09:50:00 Test Item Value Reference Range Interpretation Comments Eosinophils # (test code 0.2 See_Comment [A utomated message] The = Eosinophils #) system whic h generated this result tra nsmitted reference range : <=0.5. The reference r yared was not used to int erpret this result as normal/abnormal . [facility] CenterFzwpwiiITUHPFVNVY6766-41-81 09:50:00 Test Item Value Reference Range Interpretation Comments WBC (test code = WBC) 6.7 3.7-10.4 [facility] CenterWhxxojyAEYBQDWIXY4290-08-66 09:50:00 Test Item Value Reference Range Interpretation Comments RBC (test code = RBC) 2.86 4.70-6.10 [place] 031030-10-04 09:50:00 Test Item Value Reference Range Interpretation Comments Hgb (test code = Hgb) 8.3 14.0-18.0 [facility] CenterOidkutkVKRBNUTRIP7610-20-42 09:50:00 Test Item Value Reference Range Interpretation Comments Hct (test code = Hct) 24.4 42.0-54.0 [facility]XmvjugbCVUEXICQKY7836-86-[facility] 09:50:00 Test Item Value Reference Range Interpretation Comments MCV (test code = MCV) 85.1 80.0-94.0 [facility] HospitalFgrdhsdXJOAPICCTM5830-78-35 09:50:00 Test Item Value Reference Range Interpretation Comments MCH (test code = MCH) 29.0 pg 27.0-31.0 [facility] HospitalNfovefoWZJXCZJIPD8590-33-42 09:50:00 Test Item Value Reference Range Interpretation Comments MCHC (test code = MCHC) 34.1 32.0-36.0 [facility] HospitalViluqxuOIIPSAPZTE4553-67-84 09:50:00 Test Item Value Reference Range Interpretation Comments RDW (test code = RDW) 14.1 11.5-14.5 [facility]stzfgvTWDWCQNBOZ5060[facility] 09:50:00 Test Item Value Reference Range Interpretation Comments Platelet (test code = Platelet) 209 133-450 [facility]EvnigotPEKXYERJCR2517-98-56 09:50:00 Test Item Value Reference Range Interpretation Comments MPV (test code = MPV) 6.6 7.4-10.4 [facility] CenterNgbfcomPMQHYHMMDK7793-25-90 09:50:00 Test Item Value Reference Range Interpretation Comments Vanco Lvl (test code = Vanco Lvl) 13.1 [facility] [id number] 00:50:00 Test Item Value Reference Range Interpretation Comments Color BF (test code = Light Yellow (07/11/20 Color BF) 7:50 PM) [facility] [id number] 00:50:00 Test Item Value Reference Range Interpretation Comments Clarity BF (test code = Slight Cloudy (07/11/20 Clarity BF) 7:50 PM) [facility]2020-10-04 00:50:00 Test Item Value Reference Range Interpretation Comments Supernat BF (test code Colorless (07/11/20 7:50 = Supernat BF) PM) [facility]2020-10-04 00:50:00 Test Item Value Reference Range Interpretation Comments Nucleated Cells BF (test code = 474 Nucleated Cells BF) [facility]2020-10-04 00:50:00 Test Item Value Reference Range Interpretation Comments RBC BF (test code = RBC BF) 79 [facility]2020-10-04 00:50:00 Test Item Value Reference Range Interpretation Comments Neutrophils BF (test code = Neutrophils 53 BF) [facility]2020-10-04 00:50:00 Test Item Value Reference Range Interpretation Comments Lymph BF (test code = Lymph BF) 10 [facility]2020-10-04 00:50:00 Test Item Value Reference Range Interpretation Comments Macrophage BF (test code = Macrophage 33 BF) [facility]2020-10-04 00:50:00 Test Item Value Reference Range Interpretation Comments Eos BF (test code = Eos BF) 3 [facility]2020-10-04 00:50:00 Test Item Value Reference Range Interpretation Comments Meso BF (test code = Meso BF) 1 [facility]2020-10-04 00:50:00 Test Item Value Reference Range Interpretation Comments CellCnt BF Type (test Periton (07/11/20 7:50 code = CellCnt BF Type) PM) [facility]2020-10-04 00:50:00 Test Item Value Reference Range Interpretation Comments Color BF (test code = Light Yellow (07/11/20 Color BF) 7:50 PM) [facility]2020-10-04 00:50:00 Test Item Value Reference Range Interpretation Comments Clarity BF (test code = Slight Cloudy (07/11/20 Clarity BF) 7:50 PM) [facility]2020-10-04 00:50:00 Test Item Value Reference Range Interpretation Comments Supernat BF (test code Colorless (07/11/20 7:50 = Supernat BF) PM) [facility]2020-10-04 00:50:00 Test Item Value Reference Range Interpretation Comments Nucleated Cells BF (test code = 474 Nucleated Cells BF) [facility]2020-10-04 00:50:00 Test Item Value Reference Range Interpretation Comments RBC BF (test code = RBC BF) 79 [facility]2020-10-04 00:50:00 Test Item Value Reference Range Interpretation Comments Neutrophils BF (test code = Neutrophils 53 BF) [facility]2020-10-04 00:50:00 Test Item Value Reference Range Interpretation Comments Lymph BF (test code = Lymph BF) 10 [facility] [id number] 00:50:00 Test Item Value Reference Range Interpretation Comments Macrophage BF (test code = Macrophage 33 BF) [facility]2020-10-04 00:50:00 Test Item Value Reference Range Interpretation Comments Eos BF (test code = Eos BF) 3 [facility]2020-10-04 00:50:00 Test Item Value Reference Range Interpretation Comments Meso BF (test code = Meso BF) 1 [facility]2020-10-04 00:50:00 Test Item Value Reference Range Interpretation Comments CellCnt BF Type (test Periton (07/11/20 7:50 code = CellCnt BF Type) PM) [facility]AveiiizSIKQJYPLCV9106-91-26 08:20:00 Test Item Value Reference Range Interpretation Comments WBC (test code = WBC) 6.2 3.7-10.4 [facility] CenterSwwscsdQAVKBKWXMM7560-70-35 08:20:00 Test Item Value Reference Range Interpretation Comments RBC (test code = RBC) 2.74 4.70-6.10 [facility] CenterQyghrcpLXVRXLIFMC2566-77-23 08:20:00 Test Item Value Reference Range Interpretation Comments Hgb (test code = Hgb) 8.0 14.0-18.0 [facility] CenterQwzcslzSAXILSBCKJ1026-70-25 08:20:00 Test Item Value Reference Range Interpretation Comments Hct (test code = Hct) 23.1 42.0-54.0 [facility] CenterFowgsobEHASLRBEXD6933-62-24 08:20:00 Test Item Value Reference Range Interpretation Comments MCV (test code = MCV) 84.4 80.0-94.0 [facility] CenterCybgkgsYKGYZBWSMY9527-58-79 08:20:00 Test Item Value Reference Range Interpretation Comments MCH (test code = MCH) 29.2 pg 27.0-31.0 [facility] CenterPjyuhvuZLNVTEFGFN3259-25-97 08:20:00 Test Item Value Reference Range Interpretation Comments MCHC (test code = MCHC) 34.7 32.0-36.0 [facility] CenterPzdbhjvNTDHNZUTDG8988-41-59 08:20:00 Test Item Value Reference Range Interpretation Comments RDW (test code = RDW) 13.9 11.5-14.5 [place] 031030-10-03 08:20:00 Test Item Value Reference Range Interpretation Comments Platelet (test code = Platelet) 199 133-450 [place] 031030-10-03 08:20:00 Test Item Value Reference Range Interpretation Comments MPV (test code = MPV) 6.8 7.4-10.4 [place] 031030-10-03 08:20:00 Test Item Value Reference Range Interpretation Comments Segs (test code = Segs) 74.0 45.0-75.0 [facility] CenterIgcfrtdVOCIBOTIRG2807-97-78 08:20:00 Test Item Value Reference Range Interpretation Comments Lymphocytes (test code = Lymphocytes) 13.2 20.0-40.0 [place] [address]-10-03 08:20:00 Test Item Value Reference Range Interpretation Comments Monocytes (test code = Monocytes) 9.1 2.0-12.0 [place] [address]-10-03 08:20:00 Test Item Value Reference Range Interpretation Comments Eosinophils (test code = 3.2 See_Comment [A utomated message] The Eosinophils) system which ge nerated this result tra nsmitted reference range : <=4.0. The reference r yared was not used to int erpret this result as normal/abnormal . [facility] CenterQoswzcwNKZYFEIDZE4757-48-33 08:20:00 Test Item Value Reference Range Interpretation Comments Basophils (test code = 0.5 See_Comment [Aut omated message] The Basophils) system which ge nerated this result tra nsmitted reference range : <=1.0. The reference r yared was not used to int erpret this result as normal/abnormal . [facility] CenterVugxnllZOQEJUZGLH5646-02-03 08:20:00 Test Item Value Reference Range Interpretation Comments Neutrophils # (test code = Neutrophils 4.6 1.5-8.1 #) [place] 031030-10-03 08:20:00 Test Item Value Reference Range Interpretation Comments Lymphocytes # (test code = Lymphocytes 0.8 1.0-5.5 #) [place] [address]-10-03 08:20:00 Test Item Value Reference Range Interpretation Comments Monocytes # (test code 0.6 See_Comment [Aut omated message] The = Monocytes #) system which generated this result tra nsmitted reference range : <=0.8. The reference r yared was not used to int erpret this result as normal/abnormal . [facility] CenterLuqkjryMQKBHPZEEO8524-45-57 08:20:00 Test Item Value Reference Range Interpretation Comments Eosinophils # (test code 0.2 See_Comment [A utomated message] The = Eosinophils #) system [employer] h generated this result tra nsmitted reference range : <=0.5. The reference r yared was not used to int erpret this result as normal/abnormal . [facility] CenterAojshqfFYKYBANXZP6388-32-98 08:20:00 Test Item Value Reference Range Interpretation Comments WBC (test code = WBC) 6.2 3.7-10.4 [place] [address]-10-03 08:20:00 Test Item Value Reference Range Interpretation Comments RBC (test code = RBC) 2.74 4.70-6.10 [place] [address]-10-03 08:20:00 Test Item Value Reference Range Interpretation Comments Hgb (test code = Hgb) 8.0 14.0-18.0 [place] [address]-10-03 08:20:00 Test Item Value Reference Range Interpretation Comments Hct (test code = Hct) 23.1 42.0-54.0 [place] [address]-10-03 08:20:00 Test Item Value Reference Range Interpretation Comments MCV (test code = MCV) 84.4 80.0-94.0 [place] [address]-10-03 08:20:00 Test Item Value Reference Range Interpretation Comments MCH (test code = MCH) 29.2 pg 27.0-31.0 [place] [address]-10-03 08:20:00 Test Item Value Reference Range Interpretation Comments MCHC (test code = MCHC) 34.7 32.0-36.0 [place] [address]-10-03 08:20:00 Test Item Value Reference Range Interpretation Comments RDW (test code = RDW) 13.9 11.5-14.5 [facility] CenterUjjahqfELVUVUWJIQ7504-03-62 08:20:00 Test Item Value Reference Range Interpretation Comments Platelet (test code = Platelet) 199 133-450 [facility] CenterBqvrgpmRSFDITQMOT2234-59-21 08:20:00 Test Item Value Reference Range Interpretation Comments MPV (test code = MPV) 6.8 7.4-10.4 [place] 031030-10-03 08:20:00 Test Item Value Reference Range Interpretation Comments Segs (test code = Segs) 74.0 45.0-75.0 [facility] CenterQyhrqjuEZKCQHQYXC5106-26-50 08:20:00 Test Item Value Reference Range Interpretation Comments Lymphocytes (test code = Lymphocytes) 13.2 20.0-40.0 [place] [address]-10-03 08:20:00 Test Item Value Reference Range Interpretation Comments Monocytes (test code = Monocytes) 9.1 2.0-12.0 [place] [address]-10-03 08:20:00 Test Item Value Reference Range Interpretation Comments Eosinophils (test code = 3.2 See_Comment [A utomated message] The Eosinophils) system which ge nerated this result tra nsmitted reference range : <=4.0. The reference r yared was not used to int erpret this result as normal/abnormal . [place] [address]-10-03 08:20:00 Test Item Value Reference Range Interpretation Comments Basophils (test code = 0.5 See_Comment [Aut omated message] The Basophils) system which ge nerated this result tra nsmitted reference range : <=1.0. The reference r yared was not used to int erpret this result as normal/abnormal . [facility] CenterEnrpvqkCSIBVNHCNX1943-51-60 08:20:00 Test Item Value Reference Range Interpretation Comments Neutrophils # (test code = Neutrophils 4.6 1.5-8.1 #) [place] [address]-10-03 08:20:00 Test Item Value Reference Range Interpretation Comments Lymphocytes # (test code = Lymphocytes 0.8 1.0-5.5 #) [place] [address]-10-03 08:20:00 Test Item Value Reference Range Interpretation Comments Monocytes # (test code 0.6 See_Comment [Aut omated message] The = Monocytes #) system which generated this result tra nsmitted reference range : <=0.8. The reference r yared was not used to int erpret this result as normal/abnormal . [facility] CenterQmngqrcTQHULZHITI7195-27-60 08:20:00 Test Item Value Reference Range Interpretation Comments Eosinophils # (test code 0.2 See_Comment [A utomated message] The = Eosinophils #) system whic h generated this result tra nsmitted reference range : <=0.5. The reference r yared was not used to int erpret this result as normal/abnormal . [facility] CenterOabayllQXKJDLSLKD3541-45-83 14:52:00 Test Item Value Reference Range Interpretation Comments Lymphocytes # (test code = Lymphocytes 0.8 1.0-5.5 #) [facility] CenterZudxyumKONRTPYQKI3797-69-40 14:52:00 Test Item Value Reference Range Interpretation Comments Monocytes # (test code 0.6 See_Comment [Aut omated message] The = Monocytes #) system which generated this result tra nsmitted reference range : <=0.8. The reference r yared was not used to int erpret this result as normal/abnormal . [place] 031030-10-02 14:52:00 Test Item Value Reference Range Interpretation Comments Eosinophils # (test code 0.2 See_Comment [A utomated message] The = Eosinophils #) system [employer] generated this result tra nsmitted reference range : <=0.5. The reference r yared was not used to int erpret this result as normal/abnormal . [place] 031030-10-02 14:52:00 Test Item Value Reference Range Interpretation Comments WBC (test code = WBC) 6.6 3.7-10.4 [place] 031030-10-02 14:52:00 Test Item Value Reference Range Interpretation Comments RBC (test code = RBC) 2.76 4.70-6.10 [place] 031030-10-02 14:52:00 Test Item Value Reference Range Interpretation Comments Hgb (test code = Hgb) 8.1 14.0-18.0 [place] [address]-10-02 14:52:00 Test Item Value Reference Range Interpretation Comments Hct (test code = Hct) 23.3 42.0-54.0 [place] [address]-10-02 14:52:00 Test Item Value Reference Range Interpretation Comments MCV (test code = MCV) 84.2 80.0-94.0 [place] [address]-10-02 14:52:00 Test Item Value Reference Range Interpretation Comments MCH (test code = MCH) 29.3 pg 27.0-31.0 [place] [address]-10-02 14:52:00 Test Item Value Reference Range Interpretation Comments MCHC (test code = MCHC) 34.8 32.0-36.0 [facility] CenterQjwoghsXNKDPMYOPE0963-89-10 14:52:00 Test Item Value Reference Range Interpretation Comments RDW (test code = RDW) 13.7 11.5-14.5 [facility] CenterIbitmnvKHYQNIKEPL3432-51-50 14:52:00 Test Item Value Reference Range Interpretation Comments Platelet (test code = Platelet) 203 133-450 [facility] CenterIdexyvjQMKBMVZKVX9852-97-05 14:52:00 Test Item Value Reference Range Interpretation Comments MPV (test code = MPV) 6.6 7.4-10.4 [facility] CenterJbnsvuzEQWMBOYSSN0860-18-07 14:52:00 Test Item Value Reference Range Interpretation Comments RBC Morph (test code = Normal (07/10/20 9:52 RBC Morph) AM) [facility] CenterRumgqvuSZXKZBAYFR4093-52-64 14:52:00 Test Item Value Reference Range Interpretation Comments Plt Morph (test code = Normal (07/10/20 9:52 Plt Morph) AM) [facility] CenterOqmjtcrDMASKJEBEL4398-95-83 14:52:00 Test Item Value Reference Range Interpretation Comments Segs (test code = Segs) 76.0 45.0-75.0 [facility] CenterJehvbxrGTKVOBUCZQ6755-62-15 14:52:00 Test Item Value Reference Range Interpretation Comments Lymphocytes (test code = Lymphocytes) 11.5 20.0-40.0 [facility] CenterNoaigkjIPVJXKAAJP2240-36-35 14:52:00 Test Item Value Reference Range Interpretation Comments Monocytes (test code = Monocytes) 8.9 2.0-12.0 [place] [address]-10-02 14:52:00 Test Item Value Reference Range Interpretation Comments Eosinophils (test code = 3.1 See_Comment [A utomated message] The Eosinophils) system which ge nerated this result tra nsmitted reference range : <=4.0. The reference r yared was not used to int erpret this result as normal/abnormal . [facility] CenterJllforfCONGRCIFTY2769-87-68 14:52:00 Test Item Value Reference Range Interpretation Comments Basophils (test code = 0.5 See_Comment [Aut omated message] The Basophils) system which ge nerated this result tra nsmitted reference range : <=1.0. The reference r yared was not used to int erpret this result as normal/abnormal . [place] 031030-10-02 14:52:00 Test Item Value Reference Range Interpretation Comments Neutrophils # (test code = Neutrophils 5.1 1.5-8.1 #) [place] 031030-10-02 14:52:00 Test Item Value Reference Range Interpretation Comments Lymphocytes # (test code = Lymphocytes 0.8 1.0-5.5 #) [place] 031030-10-02 14:52:00 Test Item Value Reference Range Interpretation Comments Monocytes # (test code 0.6 See_Comment [Aut omated message] The = Monocytes #) system which generated this result tra nsmitted reference range : <=0.8. The reference r yared was not used to int erpret this result as normal/abnormal . [place] [address]-10-02 14:52:00 Test Item Value Reference Range Interpretation Comments Eosinophils # (test code 0.2 See_Comment [A utomated message] The = Eosinophils #) system whic h generated this result tra nsmitted reference range : <=0.5. The reference r yared was not used to int erpret this result as normal/abnormal . [place] 031030-10-02 14:52:00 Test Item Value Reference Range Interpretation Comments WBC (test code = WBC) 6.6 3.7-10.4 [place] [address]-10-02 14:52:00 Test Item Value Reference Range Interpretation Comments RBC (test code = RBC) 2.76 4.70-6.10 [place] [address]-10-02 14:52:00 Test Item Value Reference Range Interpretation Comments Hgb (test code = Hgb) 8.1 14.0-18.0 [place] [address]-10-02 14:52:00 Test Item Value Reference Range Interpretation Comments Hct (test code = Hct) 23.3 42.0-54.0 [place] [address]-10-02 14:52:00 Test Item Value Reference Range Interpretation Comments MCV (test code = MCV) 84.2 80.0-94.0 [place] [address]-10-02 14:52:00 Test Item Value Reference Range Interpretation Comments MCH (test code = MCH) 29.3 pg 27.0-31.0 [facility] CenterIfqgzzhBYSMHBBUHA7400-96-20 14:52:00 Test Item Value Reference Range Interpretation Comments MCHC (test code = MCHC) 34.8 32.0-36.0 [facility] CenterDdinzljBRTFBGOUJH0843-84-24 14:52:00 Test Item Value Reference Range Interpretation Comments RDW (test code = RDW) 13.7 11.5-14.5 [facility] CenterPvbavarBLLCMGDLTM7226-05-60 14:52:00 Test Item Value Reference Range Interpretation Comments Platelet (test code = Platelet) 203 133-450 [facility] CenterVdmrvcmGNZQYOIGYF5651-50-93 14:52:00 Test Item Value Reference Range Interpretation Comments MPV (test code = MPV) 6.6 7.4-10.4 [facility] CenterDtpblphRYVLANZEIF2928-51-07 14:52:00 Test Item Value Reference Range Interpretation Comments RBC Morph (test code = Normal (07/10/20 9:52 RBC Morph) AM) [facility] CenterOvcvkwaZCJDZFRRPW4474-08-14 14:52:00 Test Item Value Reference Range Interpretation Comments Plt Morph (test code = Normal (07/10/20 9:52 Plt Morph) AM) [facility] CenterBumzysuCTWLGCQHSN6220-04-64 14:52:00 Test Item Value Reference Range Interpretation Comments Segs (test code = Segs) 76.0 45.0-75.0 [facility] CenterWfsopaxUJFOWSOKXW1409-41-49 14:52:00 Test Item Value Reference Range Interpretation Comments Lymphocytes (test code = Lymphocytes) 11.5 20.0-40.0 [place] 031030-10-02 14:52:00 Test Item Value Reference Range Interpretation Comments Monocytes (test code = Monocytes) 8.9 2.0-12.0 [place] [address]-10-02 14:52:00 Test Item Value Reference Range Interpretation Comments Eosinophils (test code = 3.1 See_Comment [A utomated message] The Eosinophils) system which ge nerated this result tra nsmitted reference range : <=4.0. The reference r yared was not used to int erpret this result as normal/abnormal . [place] 031030-10-02 14:52:00 Test Item Value Reference Range Interpretation Comments Basophils (test code = 0.5 See_Comment [Aut omated message] The Basophils) system which ge nerated this result tra nsmitted reference range : <=1.0. The reference r yared was not used to int erpret this result as normal/abnormal . [facility] CenterTfvoydmKWEYJHQXXQ9884-73-42 14:52:00 Test Item Value Reference Range Interpretation Comments Neutrophils # (test code = Neutrophils 5.1 1.5-8.1 #) [place] [address]-10-01 14:49:00 Test Item Value Reference Range Interpretation Comments Total Protein (test code = Total 5.2 6.4-8.4 Protein) [place] [address]-10-01 14:49:00 Test Item Value Reference Range Interpretation Comments Albumin Lvl (test code = Albumin Lvl) 1.5 3.5-5.0 [place] [address]-10-01 14:49:00 Test Item Value Reference Range Interpretation Comments ALT (test code = ALT) 13 See_Comment [Auto mated message] The system which ge nerated this result transmit emerson reference range : <=65. The reference range was not used to interpr et this result as erinn l/abnormal. [place] 440190-10-01 14:49:00 Test Item Value Reference Range Interpretation Comments AST (test code = AST) 11 See_Comment [Auto mated message] The system which ge nerated this result transmit emerson reference range : <=37. The reference range was not used to interpr et this result as erinn l/abnormal. [place] 440190-10-01 14:49:00 Test Item Value Reference Range Interpretation Comments Alk Phos (test code = Alk Phos) 75 39-136 [place] [address]-10-01 14:49:00 Test Item Value Reference Range Interpretation Comments Bili Total (test code = Bili Total) 0.4 0.2-1.3 [place] [address]-10-01 14:49:00 Test Item Value Reference Range Interpretation Comments B/C Ratio (test code = B/C Ratio) 4 1 6-25 [place] [address]-10-01 14:49:00 Test Item Value Reference Range Interpretation Comments Globulin (test code = Globulin) 3.7 2.7-4.2 [place] [address]-10-01 14:49:00 Test Item Value Reference Range Interpretation Comments A/G Ratio (test code = A/G Ratio) 0.4 1 0.7-1.6 [place] [address]-10-01 14:49:00 Test Item Value Reference Range Interpretation Comments Phosphorus (test code = Phosphorus) 4.1 2.5-4.5 [place] 440190-10-01 14:49:00 Test Item Value Reference Range Interpretation Comments Total Protein (test code = Total 5.2 6.4-8.4 Protein) [place] 440190-10-01 14:49:00 Test Item Value Reference Range Interpretation Comments Albumin Lvl (test code = Albumin Lvl) 1.5 3.5-5.0 [place] 440190-10-01 14:49:00 Test Item Value Reference Range Interpretation Comments ALT (test code = ALT) 13 See_Comment [Auto mated message] The system which ge nerated this result transmit emerson reference range : <=65. The reference range was not used to interpr et this result as erinn l/abnormal. [place] 440190-10-01 14:49:00 Test Item Value Reference Range Interpretation Comments AST (test code = AST) 11 See_Comment [Auto mated message] The system which ge nerated this result transmit emerson reference range : <=37. The reference range was not used to interpr et this result as erinn l/abnormal. [place] 440190-10-01 14:49:00 Test Item Value Reference Range Interpretation Comments Alk Phos (test code = Alk Phos) 75 39-136 [facility] CenterDurect Corp[facility] [id number] 14:49:00 Test Item Value Reference Range Interpretation Comments Bili Total (test code = Bili Total) 0.4 0.2-1.3 [place] [address]-10-01 14:49:00 Test Item Value Reference Range Interpretation Comments B/C Ratio (test code = B/C Ratio) 4 1 6-25 [place] [address]-10-01 14:49:00 Test Item Value Reference Range Interpretation Comments Globulin (test code = Globulin) 3.7 2.7-4.2 [facility] CenterDure[facility] [id number] 14:49:00 Test Item Value Reference Range Interpretation Comments A/G Ratio (test code = A/G Ratio) 0.4 1 0.7-1.6 [facility] CenterannCHEM [id number] 14:49:00 Test Item Value Reference Range Interpretation Comments Phosphorus (test code = Phosphorus) 4.1 2.5-4.5 [facility] CenterEurtlyyGKULRHYLWH0694-21-06 09:57:00 Test Item Value Reference Range Interpretation Comments Vanco Lvl (test code = Vanco Lvl) 15.9 [facility]dsdAETMUODWHL8196-70-46 09:57:00 Test Item Value Reference Range Interpretation Comments Vanco Lvl (test code = Vanco Lvl) 15.9 [facility] CenterBbtfdmbAGYIHOBBKV3965-84-07 18:59:00 Test Item Value Reference Range Interpretation Comments Vanco Lvl (test code = Vanco Lvl) 15.4 [facility] CenterNhvltxwKUJJJETNID0445-98-64 18:59:00 Test Item Value Reference Range Interpretation Comments Vanco Lvl (test code = Vanco Lvl) 15.4 [facility] CenterannGram Stain Vfkujt0234-01-59 15:00:00 Test Item Value Reference Range Interpretation Comments Gram Stain Report No Organisms Seen Few (test code = Gram WBC's Stain Report) [facility] CenterannCulture: Aspirate/Body Fluid/Nqyqas8959-04-14 15:00:00 Test Item Value Reference Range Interpretation Comments Culture: Aspirate/Body Fluid/Tissue No Growth (test code = Culture: Aspirate/Body Fluid/Tissue) [facility] CenterannGram Stain Gvrsuz9870-66-83 15:00:00 Test Item Value Reference Range Interpretation Comments Gram Stain Report No Organisms Seen Few (test code = Gram WBC's Stain Report) [facility] CenterannCulture: Aspirate/Body Fluid/Wtwidv8474-21-50 15:00:00 Test Item Value Reference Range Interpretation Comments Culture: Aspirate/Body Fluid/Tissue No Growth (test code = Culture: Aspirate/Body Fluid/Tissue) [facility] CenterannGram Stain [id number] 15:00:00 Test Item Value Reference Range Interpretation Comments Gram Stain Report Many WBC's No Organisms (test code = Gram Seen Stain Report) [facility] CenterannCulture: Aspirate/Body Fluid/[id number] 15:00:00 Test Item Value Reference Range Interpretation Comments Culture: Aspirate/Body Fluid/Tissue No Growth (test code = Culture: Aspirate/Body Fluid/Tissue) [facility] The ZebraannGram Stain [id number] 15:00:00 Test Item Value Reference Range Interpretation Comments Gram Stain Report Many WBC's No Organisms (test code = Gram Seen Stain Report) [facility] Aspirate/Body Fluid/[id number] 15:00:00 Test Item Value Reference Range Interpretation Comments Culture: Aspirate/Body Fluid/Tissue No Growth (test code = Culture: Aspirate/Body Fluid/Tissue) [facility] [id number] 13:30:00 Test Item Value Reference Range Interpretation Comments Gram Stain Report No Organisms Seen Many (test code = Gram WBC's Stain Report) [facility] CenterannCulture: Aspirate/Body Fluid/[id number] 13:30:00 Test Item Value Reference Range Interpretation Comments Culture: Aspirate/Body Fluid/Tissue No Growth (test code = Culture: Aspirate/Body Fluid/Tissue) [facility] CloubrainGram Stain [id number] 13:30:00 Test Item Value Reference Range Interpretation Comments Gram Stain Report No Organisms Seen Many (test code = Gram WBC's Stain Report) [facility] CenterannCulture: Aspirate/Body Fluid/Wecwok6701-01-15 13:30:00 Test Item Value Reference Range Interpretation Comments Culture: Aspirate/Body Fluid/Tissue No Growth (test code = Culture: Aspirate/Body Fluid/Tissue) [facility] [id number] 11:40:00 Test Item Value Reference Range Interpretation Comments ABO/Rh (test code = ABO/Rh) O POS [facility] [id number] 11:40:00 Test Item Value Reference Range Interpretation Comments Antibody Scrn (test Negative (07/06/20 6:40 code = Antibody Scrn) AM) [facility] [employer] [id number] 11:40:00 Test Item Value Reference Range Interpretation Comments ABO/Rh (test code = ABO/Rh) O POS [facility] [id number] 11:40:00 Test Item Value Reference Range Interpretation Comments Antibody Scrn (test Negative (07/06/20 6:40 code = Antibody Scrn) AM) [facility] [id number] 11:07:00 Test Item Value Reference Range Interpretation Comments Troponin-I (test code no gt See_Comment [Auto mated message] The = Troponin-I) system which g enerated this result transmit emerson reference range : <=0.40. The reference r yared was not used to interpr et this result as erinn l/abnormal. [facility] [employer] [id number] 11:07:00 Test Item Value Reference Range Interpretation Comments Magnesium Lvl (test code = Magnesium 1.8 1.8-2.4 Lvl) [facility] [id number] 11:07:00 Test Item Value Reference Range Interpretation Comments Phosphorus (test code = Phosphorus) 5.3 2.5-4.5 [facility] [id number] 11:07:00 Test Item Value Reference Range Interpretation Comments Lipase Lvl (test code = Lipase Lvl) 48 73-393 [facility] Center[facility] [id number] 11:07:00 Test Item Value Reference Range Interpretation Comments Total Protein (test code = Total 5.3 6.4-8.4 Protein) [facility] Center[facility] [id number] 11:07:00 Test Item Value Reference Range Interpretation Comments Albumin Lvl (test code = Albumin Lvl) 1.6 3.5-5.0 [facility] [id number] 11:07:00 Test Item Value Reference Range Interpretation Comments Globulin (test code = Globulin) 3.7 2.7-4.2 [facility] [id number] 11:07:00 Test Item Value Reference Range Interpretation Comments A/G Ratio (test code = A/G Ratio) 0.4 1 0.7-1.6 [facility] [id number] 11:07:00 Test Item Value Reference Range Interpretation Comments ALT (test code = ALT) 12 See_Comment [Auto mated message] The system which ge nerated this result transmit emerson reference range : <=65. The reference range was not used to interpr et this result as erinn l/abnormal. [facility] [employer] [id number] 11:07:00 Test Item Value Reference Range Interpretation Comments AST (test code = AST) 13 See_Comment [Auto mated message] The system which ge nerated this result transmit emerson reference range : <=37. The reference range was not used to interpr et this result as erinn l/abnormal. [facility] Center[facility] [id number] 11:07:00 Test Item Value Reference Range Interpretation Comments Alk Phos (test code = Alk Phos) 67 39-136 [facility] [id number] 11:07:00 Test Item Value Reference Range Interpretation Comments Bili Total (test code = Bili Total) 0.6 0.2-1.3 [facility] [id number] 11:07:00 Test Item Value Reference Range Interpretation Comments Bili Direct (test code no gt See_Comment [Aut omated message] The = Bili Direct) system which generated this result tra nsmitted reference range : <=0.3. The reference r yared was not used to int erpret this result as erinn l/abnormal. [facility] [id number] 11:07:00 Test Item Value Reference Range Interpretation Comments Bili Indirect Unable to See_Comment [Automated (test code = Bili Calculate message] T he system Indirect) which generated this result transmitted reference range : <=1.0. The reference range was not used to interpret this result as normal/abnormal . [facility] [employer] [id number] 11:07:00 Test Item Value Reference Range Interpretation Comments Lactic Acid Lvl (test code = Lactic 0.6 0.5-2.2 Acid Lvl) [facility] [id number] 11:07:00 Test Item Value Reference Range Interpretation Comments PTT (test code = PTT) 40.6 s 22.9-35.8 [facility] CenterBltjjpiWVGXPGHBKL1584-72-84 11:07:00 Test Item Value Reference Range Interpretation Comments PT (test code = PT) 14.0 s 12.0-14.7 [facility] CenterZccxigzMBYNIJEUSB9839-55-23 11:07:00 Test Item Value Reference Range Interpretation Comments INR (test code = INR) 1.08 1 0.85-1.17 [facility] CenterCARDIAC [id number] 11:07:00 Test Item Value Reference Range Interpretation Comments Troponin-I (test code no gt See_Comment [Auto mated message] The = Troponin-I) system which g enerated this result transmit emerson reference range : <=0.40. The reference r yared was not used to interpr et this result as erinn l/abnormal. [facility] [id number] 11:07:00 Test Item Value Reference Range Interpretation Comments Magnesium Lvl (test code = Magnesium 1.8 1.8-2.4 Lvl) [place] [id number] 11:07:00 Test Item Value Reference Range Interpretation Comments Phosphorus (test code = Phosphorus) 5.3 2.5-4.5 [place] [id number] 11:07:00 Test Item Value Reference Range Interpretation Comments Lipase Lvl (test code = Lipase Lvl) 48 73-393 [facility] [id number] 11:07:00 Test Item Value Reference Range Interpretation Comments Total Protein (test code = Total 5.3 6.4-8.4 Protein) [place] 440190-09-28 11:07:00 Test Item Value Reference Range Interpretation Comments Albumin Lvl (test code = Albumin Lvl) 1.6 3.5-5.0 [facility] [id number] 11:07:00 Test Item Value Reference Range Interpretation Comments Globulin (test code = Globulin) 3.7 2.7-4.2 [facility] [id number] 11:07:00 Test Item Value Reference Range Interpretation Comments A/G Ratio (test code = A/G Ratio) 0.4 1 0.7-1.6 [place] [id number] 11:07:00 Test Item Value Reference Range Interpretation Comments ALT (test code = ALT) 12 See_Comment [Auto mated message] The system which ge nerated this result transmit emerson reference range : <=65. The reference range was not used to interpr et this result as erinn l/abnormal. [facility] [id number] 11:07:00 Test Item Value Reference Range Interpretation Comments AST (test code = AST) 13 See_Comment [Auto mated message] The system which ge nerated this result transmit emerson reference range : <=37. The reference range was not used to interpr et this result as erinn l/abnormal. [facility] [id number] 11:07:00 Test Item Value Reference Range Interpretation Comments Alk Phos (test code = Alk Phos) 67 39-136 [facility]2020-09-28 11:07:00 Test Item Value Reference Range Interpretation Comments Bili Total (test code = Bili Total) 0.6 0.2-1.3 [facility]2020-09-28 11:07:00 Test Item Value Reference Range Interpretation Comments Bili Direct (test code no gt See_Comment [Aut omated message] The = Bili Direct) system which generated this result tra nsmitted reference range : <=0.3. The reference r yared was not used to int erpret this result as erinn l/abnormal. [facility]2020-09-28 11:07:00 Test Item Value Reference Range Interpretation Comments Bili Indirect Unable to See_Comment [Automated (test code = Bili Calculate message] T he system Indirect) which generated this result transmitted reference range : <=1.0. The reference range was not used to interpret this result as normal/abnormal . [facility]2020-09-28 11:07:00 Test Item Value Reference Range Interpretation Comments Lactic Acid Lvl (test code = Lactic 0.6 0.5-2.2 Acid Lvl) [place] 031030-09-28 11:07:00 Test Item Value Reference Range Interpretation Comments PTT (test code = PTT) 40.6 s 22.9-35.8 [place] 031030-09-28 11:07:00 Test Item Value Reference Range Interpretation Comments PT (test code = PT) 14.0 s 12.0-14.7 [place] 031030-09-28 11:07:00 Test Item Value Reference Range Interpretation Comments INR (test code = INR) 1.08 1 0.85-1.17 [place] 440190-08-13 13:56:00 Test Item Value Reference Range Interpretation Comments Glucose Lvl (test code = Glucose Lvl) 97 70-99 [facility]2020-08-13 13:56:00 Test Item Value Reference Range Interpretation Comments BUN (test code = BUN) 41 7-22 [place] 440190-08-13 13:56:00 Test Item Value Reference Range Interpretation Comments Creatinine Lvl (test code = Creatinine 10.50 0.50-1.40 Lvl) [place] 440190-08-13 13:56:00 Test Item Value Reference Range Interpretation Comments Sodium Lvl (test code = Sodium Lvl) 133 135-145 [place] [address]-08-13 13:56:00 Test Item Value Reference Range Interpretation Comments Potassium Lvl (test code = Potassium 3.2 3.5-5.1 Lvl) [place] 440190-08-13 13:56:00 Test Item Value Reference Range Interpretation Comments Chloride Lvl (test code = Chloride Lvl) 94 95-109 [place] [address]-08-13 13:56:00 Test Item Value Reference Range Interpretation Comments CO2 (test code = CO2) 28 24-32 [place] [address]-08-13 13:56:00 Test Item Value Reference Range Interpretation Comments Calcium Lvl (test code = Calcium Lvl) 9.5 8.5-10.5 [place] [address]-08-13 13:56:00 Test Item Value Reference Range Interpretation Comments AGAP (test code = AGAP) 14.2 10.0-20.0 [place] 440190-08-13 13:56:00 Test Item Value Reference Range Interpretation Comments eGFR (test code = eGFR) 5 [place] [address]-08-13 13:56:00 Test Item Value Reference Range Interpretation Comments Total Protein (test code = Total 5.4 6.4-8.4 Protein) [place] [address]-08-13 13:56:00 Test Item Value Reference Range Interpretation Comments Albumin Lvl (test code = Albumin Lvl) 2.3 3.5-5.0 [place] 440190-08-13 13:56:00 Test Item Value Reference Range Interpretation Comments ALT (test code = ALT) 16 See_Comment [Auto mated message] The system which ge nerated this result transmit emerson reference range : <=65. The reference range was not used to interpr et this result as erinn l/abnormal. [facility] CenterDurect Corp[facility] [id number] 13:56:00 Test Item Value Reference Range Interpretation Comments AST (test code = AST) 26 See_Comment [Auto mated message] The system which ge nerated this result transmit emerson reference range : <=37. The reference range was not used to interpr et this result as erinn l/abnormal. [place] 440190-08-13 13:56:00 Test Item Value Reference Range Interpretation Comments Alk Phos (test code = Alk Phos) 82 39-136 [place] 440190-08-13 13:56:00 Test Item Value Reference Range Interpretation Comments Bili Total (test code = Bili Total) 0.4 0.2-1.3 [place] 440190-08-13 13:56:00 Test Item Value Reference Range Interpretation Comments Bili Direct (test code 0.1 See_Comment [Aut omated message] The = Bili Direct) system which generated this result tra nsmitted reference range : <=0.3. The reference r yared was not used to int erpret this result as erinn l/abnormal. [place] [address]-08-13 13:56:00 Test Item Value Reference Range Interpretation Comments Bili Indirect (test 0.3 See_Comment [Automa emerson message] The code = Bili Indirect) system which generated this result tra nsmitted reference range : <=1.0. The reference r yared was not used to int erpret this result as normal/abnormal . [facility]2020-08-13 13:56:00 Test Item Value Reference Range Interpretation Comments Globulin (test code = Globulin) 3.1 2.7-4.2 [place] 440190-08-13 13:56:00 Test Item Value Reference Range Interpretation Comments A/G Ratio (test code = A/G Ratio) 0.7 1 0.7-1.6 [place] 440190-08-13 13:56:00 Test Item Value Reference Range Interpretation Comments Lipase Lvl (test code = Lipase Lvl) 41 73-393 [facility] CenterYecqesqWUGFNLFIMW6800-95-45 13:56:00 Test Item Value Reference Range Interpretation Comments WBC (test code = WBC) 5.3 3.7-10.4 [place] [address]-08-13 13:56:00 Test Item Value Reference Range Interpretation Comments RBC (test code = RBC) 2.56 4.70-6.10 [place] [address]-08-13 13:56:00 Test Item Value Reference Range Interpretation Comments Hgb (test code = Hgb) 7.6 14.0-18.0 [place] [address]-08-13 13:56:00 Test Item Value Reference Range Interpretation Comments Hct (test code = Hct) 21.8 42.0-54.0 [place] 031030-08-13 13:56:00 Test Item Value Reference Range Interpretation Comments MCV (test code = MCV) 85.2 80.0-94.0 [place] [address]-08-13 13:56:00 Test Item Value Reference Range Interpretation Comments MCH (test code = MCH) 29.6 pg 27.0-31.0 [place] [address]-08-13 13:56:00 Test Item Value Reference Range Interpretation Comments MCHC (test code = MCHC) 34.8 32.0-36.0 [place] 031030-08-13 13:56:00 Test Item Value Reference Range Interpretation Comments RDW (test code = RDW) 13.9 11.5-14.5 [place] 031030-08-13 13:56:00 Test Item Value Reference Range Interpretation Comments Platelet (test code = Platelet) 170 133-450 [facility] CenterAmftisgUAIKOHCRFR2991-04-91 13:56:00 Test Item Value Reference Range Interpretation Comments MPV (test code = MPV) 7.1 7.4-10.4 [place] [address]-08-13 13:56:00 Test Item Value Reference Range Interpretation Comments Segs (test code = Segs) 67.4 45.0-75.0 [facility] CenterXqpasvrJSMKRBBUJL2189-35-07 13:56:00 Test Item Value Reference Range Interpretation Comments Lymphocytes (test code = Lymphocytes) 15.2 20.0-40.0 [place] [address]-08-13 13:56:00 Test Item Value Reference Range Interpretation Comments Monocytes (test code = Monocytes) 8.6 2.0-12.0 [place] [address]-08-13 13:56:00 Test Item Value Reference Range Interpretation Comments Eosinophils (test code = 7.8 See_Comment [A utomated message] The Eosinophils) system which ge nerated this result tra nsmitted reference range : <=4.0. The reference r yared was not used to int erpret this result as normal/abnormal . [facility] CenterHkbppptLWMMCLEBIM2620-17-74 13:56:00 Test Item Value Reference Range Interpretation Comments Basophils (test code = 1.0 See_Comment [Aut omated message] The Basophils) system which ge nerated this result tra nsmitted reference range : <=1.0. The reference r yared was not used to int erpret this result as normal/abnormal . [facility] CenterKejnsgqSTTTWLGVJT2707-34-67 13:56:00 Test Item Value Reference Range Interpretation Comments Neutrophils # (test code = Neutrophils 3.6 1.5-8.1 #) [facility] CenterTxbfozvLXTSNSEZAY8658-73-26 13:56:00 Test Item Value Reference Range Interpretation Comments Lymphocytes # (test code = Lymphocytes 0.8 1.0-5.5 #) [facility] CenterHtkvlleNLIHEZAFTL7020-81-35 13:56:00 Test Item Value Reference Range Interpretation Comments Monocytes # (test code 0.5 See_Comment [Aut omated message] The = Monocytes #) system which generated this result tra nsmitted reference range : <=0.8. The reference r yared was not used to int erpret this result as normal/abnormal . [facility] CenterYfvsmldLSWWCFCTYW9661-55-57 13:56:00 Test Item Value Reference Range Interpretation Comments Eosinophils # (test code 0.4 See_Comment [A utomated message] The = Eosinophils #) system whic h generated this result tra nsmitted reference range : <=0.5. The reference r yared was not used to int erpret this result as normal/abnormal . [facility] CenterTdqxazbFVOKKKGZUT5468-87-29 13:56:00 Test Item Value Reference Range Interpretation Comments Basophils # (test code 0.1 See_Comment [Aut omated message] The = Basophils #) system which generated this result tra nsmitted reference range : <=0.2. The reference r yared was not used to int erpret this result as normal/abnormal . [facility] [id number] 13:56:00 Test Item Value Reference Range Interpretation Comments eGFR (test code = eGFR) 5 [facility] [id number] 13:56:00 Test Item Value Reference Range Interpretation Comments Total Protein (test code = Total 5.4 6.4-8.4 Protein) [facility] CenterDurect Corp[facility] [id number] 13:56:00 Test Item Value Reference Range Interpretation Comments Albumin Lvl (test code = Albumin Lvl) 2.3 3.5-5.0 [facility]2020-08-13 13:56:00 Test Item Value Reference Range Interpretation Comments ALT (test code = ALT) 16 See_Comment [Auto mated message] The system which ge nerated this result transmit emerson reference range : <=65. The reference range was not used to interpr et this result as erinn l/abnormal. [facility]2020-08-13 13:56:00 Test Item Value Reference Range Interpretation Comments AST (test code = AST) 26 See_Comment [Auto mated message] The system which ge nerated this result transmit emerson reference range : <=37. The reference range was not used to interpr et this result as erinn l/abnormal. [facility]2020-08-13 13:56:00 Test Item Value Reference Range Interpretation Comments Alk Phos (test code = Alk Phos) 82 39-136 [facility]2020-08-13 13:56:00 Test Item Value Reference Range Interpretation Comments Bili Total (test code = Bili Total) 0.4 0.2-1.3 [facility]2020-08-13 13:56:00 Test Item Value Reference Range Interpretation Comments Bili Direct (test code 0.1 See_Comment [Aut omated message] The = Bili Direct) system which generated this result tra nsmitted reference range : <=0.3. The reference r yared was not used to int erpret this result as erinn l/abnormal. [facility]2020-08-13 13:56:00 Test Item Value Reference Range Interpretation Comments Bili Indirect (test 0.3 See_Comment [Automa emerson message] The code = Bili Indirect) system which generated this result tra nsmitted reference range : <=1.0. The reference r yared was not used to int erpret this result as normal/abnormal . [facility]2020-08-13 13:56:00 Test Item Value Reference Range Interpretation Comments Globulin (test code = Globulin) 3.1 2.7-4.2 [facility]2020-08-13 13:56:00 Test Item Value Reference Range Interpretation Comments A/G Ratio (test code = A/G Ratio) 0.7 1 0.7-1.6 [facility]2020-08-13 13:56:00 Test Item Value Reference Range Interpretation Comments Lipase Lvl (test code = Lipase Lvl) 41 73-393 [facility] CenterIxadrfzYJDCLBNZQV9501-11-07 13:56:00 Test Item Value Reference Range Interpretation Comments WBC (test code = WBC) 5.3 3.7-10.4 [facility] CenterPjqudsdTVCRWLDEEU5262-81-79 13:56:00 Test Item Value Reference Range Interpretation Comments RBC (test code = RBC) 2.56 4.70-6.10 [facility] CenterAoclowlFNPBXDDIAO8957-86-54 13:56:00 Test Item Value Reference Range Interpretation Comments Hgb (test code = Hgb) 7.6 14.0-18.0 [facility] CenterJvdapkiHSTAATGZVL4603-79-56 13:56:00 Test Item Value Reference Range Interpretation Comments Hct (test code = Hct) 21.8 42.0-54.0 [facility] CenterFtcpygqQMOSWCQRSO1483-46-93 13:56:00 Test Item Value Reference Range Interpretation Comments MCV (test code = MCV) 85.2 80.0-94.0 [facility] CenterKlddrixYNHGDKTTGD9324-65-65 13:56:00 Test Item Value Reference Range Interpretation Comments MCH (test code = MCH) 29.6 pg 27.0-31.0 [facility] CenterLrazdowZHWTDCEAWO5896-62-91 13:56:00 Test Item Value Reference Range Interpretation Comments MCHC (test code = MCHC) 34.8 32.0-36.0 [facility] CenterCxuvcscWITVXSYQLZ0240-41-30 13:56:00 Test Item Value Reference Range Interpretation Comments RDW (test code = RDW) 13.9 11.5-14.5 [facility] CenterVnicubdGRNETFVZNT4437-61-78 13:56:00 Test Item Value Reference Range Interpretation Comments Platelet (test code = Platelet) 170 133-450 [facility] CenterIqgxnspFRHDRVWZPD5926-96-64 13:56:00 Test Item Value Reference Range Interpretation Comments MPV (test code = MPV) 7.1 7.4-10.4 [place] [address]-08-13 13:56:00 Test Item Value Reference Range Interpretation Comments Segs (test code = Segs) 67.4 45.0-75.0 [facility] CenterQswbriuUBPZDNCWWM0605-50-82 13:56:00 Test Item Value Reference Range Interpretation Comments Lymphocytes (test code = Lymphocytes) 15.2 20.0-40.0 [facility] CenterMojhetvLAYLLMVIQV8205-48-37 13:56:00 Test Item Value Reference Range Interpretation Comments Monocytes (test code = Monocytes) 8.6 2.0-12.0 [facility] CenterSllgxkoILSLOLSMRA6013-29-85 13:56:00 Test Item Value Reference Range Interpretation Comments Eosinophils (test code = 7.8 See_Comment [A utomated message] The Eosinophils) system which ge nerated this result tra nsmitted reference range : <=4.0. The reference r yared was not used to int erpret this result as normal/abnormal . [facility] CenterXpenujmVDNJAORBDE8144-26-10 13:56:00 Test Item Value Reference Range Interpretation Comments Basophils (test code = 1.0 See_Comment [Aut omated message] The Basophils) system which ge nerated this result tra nsmitted reference range : <=1.0. The reference r yared was not used to int erpret this result as normal/abnormal . [facility] CenterVouzpbuTJIYBELJML2210-57-51 13:56:00 Test Item Value Reference Range Interpretation Comments Neutrophils # (test code = Neutrophils 3.6 1.5-8.1 #) [facility] CenterMsdvexiQQUJTHDEGI0668-22-28 13:56:00 Test Item Value Reference Range Interpretation Comments Lymphocytes # (test code = Lymphocytes 0.8 1.0-5.5 #) [id number] 13:56:00 Test Item Value Reference Range Interpretation Comments Monocytes # (test code 0.5 See_Comment [Aut omated message] The = Monocytes #) system which generated this result tra nsmitted reference range : <=0.8. The reference r yared was not used to int erpret this result as normal/abnormal . [facility] CenterKhmnjyqCPATKJTEYS6715-45-29 13:56:00 Test Item Value Reference Range Interpretation Comments Eosinophils # (test code 0.4 See_Comment [A utomated message] The = Eosinophils #) system whic h generated this result tra nsmitted reference range : <=0.5. The reference r yared was not used to int erpret this result as normal/abnormal . [facility] CenterNdxkdfxHIKLEQHSBA0063-98-20 13:56:00 Test Item Value Reference Range Interpretation Comments Basophils # (test code 0.1 See_Comment [Aut omated message] The = Basophils #) system which generated this result tra nsmitted reference range : <=0.2. The reference r yared was not used to int erpret this result as normal/abnormal . [facility] [id number] 13:56:00 Test Item Value Reference Range Interpretation Comments Glucose Lvl (test code = Glucose Lvl) 97 70-99 [facility] [id number] 13:56:00 Test Item Value Reference Range Interpretation Comments BUN (test code = BUN) 41 7-22 [facility] [id number] 13:56:00 Test Item Value Reference Range Interpretation Comments Creatinine Lvl (test code = Creatinine 10.50 0.50-1.40 Lvl) [facility] [id number] 13:56:00 Test Item Value Reference Range Interpretation Comments Sodium Lvl (test code = Sodium Lvl) 133 135-145 [facility] [id number] 13:56:00 Test Item Value Reference Range Interpretation Comments Potassium Lvl (test code = Potassium 3.2 3.5-5.1 Lvl) [facility] [id number] 13:56:00 Test Item Value Reference Range Interpretation Comments Chloride Lvl (test code = Chloride Lvl) 94 95-109 [facility] [id number] 13:56:00 Test Item Value Reference Range Interpretation Comments CO2 (test code = CO2) 28 24-32 [facility] [id number] 13:56:00 Test Item Value Reference Range Interpretation Comments Calcium Lvl (test code = Calcium Lvl) 9.5 8.5-10.5 [facility] [id number] 13:56:00 Test Item Value Reference Range Interpretation Comments AGAP (test code = AGAP) 14.2 10.0-20.0 [employer] [id number] 06:28:00 Test Item Value Reference Range Interpretation Comments ABO/Rh (test code = ABO/Rh) O POS [facility] [id number] 06:28:00 Test Item Value Reference Range Interpretation Comments Antibody Scrn (test Negative (03/23/20 1:28 code = Antibody Scrn) AM) [facility] [id number] 06:28:00 Test Item Value Reference Range Interpretation Comments ABO/Rh (test code = ABO/Rh) O POS [facility] [id number] 06:28:00 Test Item Value Reference Range Interpretation Comments Antibody Scrn (test Negative (03/23/20 1:28 code = Antibody Scrn) AM) [facility] [id number] 06:23:00 Test Item Value Reference Range Interpretation Comments RBC product (test code Product available = RBC product) 2(03/23/20 1:23 AM) [facility] [id number] 06:23:00 Test Item Value Reference Range Interpretation Comments RBC product (test code Product available = RBC product) 2(03/23/20 1:23 AM) [employer]2020-06-15 06:08:00 Test Item Value Reference Range Interpretation Comments RBC BF (test code = RBC BF) [id number] [employer]2020-06-15 06:08:00 Test Item Value Reference Range Interpretation Comments Nucleated Cells BF (test code = 1316 Nucleated Cells BF) [employer]2020-06-15 06:08:00 Test Item Value Reference Range Interpretation Comments Neutrophils BF (test code = Neutrophils 37 BF) [employer]2020-06-15 06:08:00 Test Item Value Reference Range Interpretation Comments Lymph BF (test code = Lymph BF) 4 [employer]2020-06-15 06:08:00 Test Item Value Reference Range Interpretation Comments Macrophage BF (test code = Macrophage 54 BF) [employer]2020-06-15 06:08:00 Test Item Value Reference Range Interpretation Comments Eos BF (test code = Eos BF) 3 [employer]2020-06-15 06:08:00 Test Item Value Reference Range Interpretation Comments Meso BF (test code = Meso BF) 2 [employer]2020-06-15 06:08:00 Test Item Value Reference Range Interpretation Comments Clarity BF (test code = Bloody *ABN*(03/23/20 Clarity BF) 1:08 AM) [employer]2020-06-15 06:08:00 Test Item Value Reference Range Interpretation Comments Color BF (test code = Red *ABN*(03/23/20 1:08 Color BF) AM) [facility]2020-06-15 06:08:00 Test Item Value Reference Range Interpretation Comments Supernat BF (test code = Yellow *ABN*(03/23/20 Supernat BF) 1:08 AM) [facility] [id number] 06:08:00 Test Item Value Reference Range Interpretation Comments CellCnt BF Type (test Periton (03/23/20 1:08 code = CellCnt BF Type) AM) [facility] [id number] 06:08:00 Test Item Value Reference Range Interpretation Comments Glucose Lvl (test code = Glucose Lvl) 98 70-99 [facility] [id number] 06:08:00 Test Item Value Reference Range Interpretation Comments BUN (test code = BUN) 81 7-22 [facility] [id number] 06:08:00 Test Item Value Reference Range Interpretation Comments Creatinine Lvl (test code = Creatinine 14.40 0.50-1.40 Lvl) [facility] [id number] 06:08:00 Test Item Value Reference Range Interpretation Comments Sodium Lvl (test code = Sodium Lvl) 129 135-145 [facility] [id number] 06:08:00 Test Item Value Reference Range Interpretation Comments Potassium Lvl (test code = Potassium 4.8 3.5-5.1 Lvl) [facility] [id number] 06:08:00 Test Item Value Reference Range Interpretation Comments Chloride Lvl (test code = Chloride Lvl) 90 95-109 [facility] [id number] 06:08:00 Test Item Value Reference Range Interpretation Comments CO2 (test code = CO2) 27 24-32 [facility] [id number] 06:08:00 Test Item Value Reference Range Interpretation Comments Calcium Lvl (test code = Calcium Lvl) 8.7 8.5-10.5 [facility] [id number] 06:08:00 Test Item Value Reference Range Interpretation Comments Total Protein (test code = Total 5.7 6.4-8.4 Protein) [facility] [id number] 06:08:00 Test Item Value Reference Range Interpretation Comments Albumin Lvl (test code = Albumin Lvl) 2.5 3.5-5.0 [facility] [id number] 06:08:00 Test Item Value Reference Range Interpretation Comments ALT (test code = ALT) 32 See_Comment [Auto mated message] The system which ge nerated this result transmit emerson reference range : <=65. The reference range was not used to interpr et this result as erinn l/abnormal. [facility] [id number] 06:08:00 Test Item Value Reference Range Interpretation Comments AST (test code = AST) 36 See_Comment [Auto mated message] The system which ge nerated this result transmit emerson reference range : <=37. The reference range was not used to interpr et this result as erinn l/abnormal. [facility] [id number] 06:08:00 Test Item Value Reference Range Interpretation Comments Alk Phos (test code = Alk Phos) 110 39-136 [facility] [id number] 06:08:00 Test Item Value Reference Range Interpretation Comments Bili Total (test code = Bili Total) 0.5 0.2-1.3 [facility] [id number] 06:08:00 Test Item Value Reference Range Interpretation Comments AGAP (test code = AGAP) 16.8 10.0-20.0 [facility] [id number] 06:08:00 Test Item Value Reference Range Interpretation Comments B/C Ratio (test code = B/C Ratio) 6 1 6-25 [facility] [id number] 06:08:00 Test Item Value Reference Range Interpretation Comments Globulin (test code = Globulin) 3.2 2.7-4.2 [facility] [id number] 06:08:00 Test Item Value Reference Range Interpretation Comments A/G Ratio (test code = A/G Ratio) 0.8 1 0.7-1.6 [facility] [id number] 06:08:00 Test Item Value Reference Range Interpretation Comments eGFR (test code = eGFR) 3 [facility] [id number] 06:08:00 Test Item Value Reference Range Interpretation Comments Lactic Acid Lvl (test code = Lactic 0.6 0.5-2.2 Acid Lvl) [id number] 06:08:00 Test Item Value Reference Range Interpretation Comments WBC (test code = WBC) 11.5 3.7-10.4 [facility] CenterMcdkqpnWPPSBOEJNQ6192-52-18 06:08:00 Test Item Value Reference Range Interpretation Comments RBC (test code = RBC) 2.12 4.70-6.10 [facility] CenterSpdmkofJIOJBOWZQD5658-29-53 06:08:00 Test Item Value Reference Range Interpretation Comments Hgb (test code = Hgb) 6.1 14.0-18.0 [facility] CenterQgnuudvKORPOXFEHT5907-31-06 06:08:00 Test Item Value Reference Range Interpretation Comments Hct (test code = Hct) 18.4 42.0-54.0 [facility] CenterHxotqozHRJYZWTRSM2541-28-34 06:08:00 Test Item Value Reference Range Interpretation Comments MCV (test code = MCV) 86.5 80.0-94.0 [place] 031030-06-15 06:08:00 Test Item Value Reference Range Interpretation Comments MCH (test code = MCH) 28.6 pg 27.0-31.0 [facility] CenterUdggcmeYDQZKSKMRF7158-33-92 06:08:00 Test Item Value Reference Range Interpretation Comments MCHC (test code = MCHC) 33.1 32.0-36.0 [facility] CenterVkzatopLHPYRSGYOP4456-35-15 06:08:00 Test Item Value Reference Range Interpretation Comments RDW (test code = RDW) 15.9 11.5-14.5 [facility] CenterOlnwunnVJNLHJFOJJ9380-96-35 06:08:00 Test Item Value Reference Range Interpretation Comments Platelet (test code = Platelet) 316 133-450 [facility] C[id number] 06:08:00 Test Item Value Reference Range Interpretation Comments MPV (test code = MPV) 6.8 7.4-10.4 [facility] C[id number] 06:08:00 Test Item Value Reference Range Interpretation Comments PT (test code = PT) 13.9 s 12.0-14.7 [facility] CenterQsdxtzqYEPLHQVESI9382-15-66 06:08:00 Test Item Value Reference Range Interpretation Comments INR (test code = INR) 1.07 1 0.85-1.17 [facility] CenterCsyrawtUKKMEQJVUO3937-93-84 06:08:00 Test Item Value Reference Range Interpretation Comments RBC Morph (test code = Normal (03/23/20 1:08 RBC Morph) AM) [facility] CenterUsdmzorQJJMVFJWQO6770-10-87 06:08:00 Test Item Value Reference Range Interpretation Comments Plt Morph (test code = Normal (03/23/20 1:08 Plt Morph) AM) [facility] CenterSysfvbfDPXLUYOBNI6711-13-17 06:08:00 Test Item Value Reference Range Interpretation Comments Segs (test code = Segs) 80.9 45.0-75.0 [facility] CenterJcqnlbgYGJVHHIWLG3133-22-28 06:08:00 Test Item Value Reference Range Interpretation Comments Lymphocytes (test code = Lymphocytes) 9.1 20.0-40.0 [facility] CenterKnsaezrQHCTINSXLZ0243-88-11 06:08:00 Test Item Value Reference Range Interpretation Comments Monocytes (test code = Monocytes) 7.3 2.0-12.0 [facility] CenterBzefqxwVIAXTGKSKS6452-47-75 06:08:00 Test Item Value Reference Range Interpretation Comments Eosinophils (test code = 2.0 See_Comment [A utomated message] The Eosinophils) system which ge nerated this result tra nsmitted reference range : <=4.0. The reference r yared was not used to int erpret this result as normal/abnormal . [facility] CenterRclbgwaIJJIRPAXOU3282-19-83 06:08:00 Test Item Value Reference Range Interpretation Comments Basophils (test code = 0.7 See_Comment [Aut omated message] The Basophils) system which ge nerated this result tra nsmitted reference range : <=1.0. The reference r yared was not used to int erpret this result as normal/abnormal . [facility] CenterIcudskbXJCBZAXHQV6458-60-24 06:08:00 Test Item Value Reference Range Interpretation Comments Neutrophils # (test code = Neutrophils 9.3 1.5-8.1 #) [facility] CenterPisjigsGVEBKIPIVG7861-94-11 06:08:00 Test Item Value Reference Range Interpretation Comments Lymphocytes # (test code = Lymphocytes 1.0 1.0-5.5 #) [facility] CenterJioalrcHYPUDBBGBL8236-19-17 06:08:00 Test Item Value Reference Range Interpretation Comments Monocytes # (test code 0.8 See_Comment [Aut omated message] The = Monocytes #) system which generated this result tra nsmitted reference range : <=0.8. The reference r yared was not used to int erpret this result as normal/abnormal . [facility] CenterEhlnbswAROPUGYSMX8418-00-86 06:08:00 Test Item Value Reference Range Interpretation Comments Eosinophils # (test code 0.2 See_Comment [A utomated message] The = Eosinophils #) system whic h generated this result tra nsmitted reference range : <=0.5. The reference r yared was not used to int erpret this result as normal/abnormal . [facility] CenterQtjghnbJUSYLOJYAP5013-98-64 06:08:00 Test Item Value Reference Range Interpretation Comments Basophils # (test code 0.1 See_Comment [Aut omated message] The = Basophils #) system which generated this result tra nsmitted reference range : <=0.2. The reference r yared was not used to int erpret this result as normal/abnormal . [facility] [id number] 06:08:00 Test Item Value Reference Range Interpretation Comments Anisocyte (test code = 2+ *ABN*(03/23/20 Anisocyte) 1:08 AM) [facility] CenterFwbpkdyPLTJEOQTKF6814-17-55 06:08:00 Test Item Value Reference Range Interpretation Comments Macrocyte (test code = 1+ *ABN*(03/23/20 Macrocyte) 1:08 AM) [facility] CenterYwbfutcWGYUQHPKPR4733-19-85 06:08:00 Test Item Value Reference Range Interpretation Comments Microcyte (test code = 1+ *ABN*(03/23/20 Microcyte) 1:08 AM) [facility] CenterZvpqhajIIEVEEECUC7849-24-42 06:08:00 Test Item Value Reference Range Interpretation Comments Spherocyte (test code = Rare *ABN*(03/23/20 Spherocyte) 1:08 AM) [facility]2020-06-15 06:08:00 Test Item Value Reference Range Interpretation Comments RBC BF (test code = RBC BF) [id number] [facility]2020-06-15 06:08:00 Test Item Value Reference Range Interpretation Comments Nucleated Cells BF (test code = 1316 Nucleated Cells BF) [facility]2020-06-15 06:08:00 Test Item Value Reference Range Interpretation Comments Neutrophils BF (test code = Neutrophils 37 BF) [facility]2020-06-15 06:08:00 Test Item Value Reference Range Interpretation Comments Lymph BF (test code = Lymph BF) 4 [facility]2020-06-15 06:08:00 Test Item Value Reference Range Interpretation Comments Macrophage BF (test code = Macrophage 54 BF) [facility]2020-06-15 06:08:00 Test Item Value Reference Range Interpretation Comments Eos BF (test code = Eos BF) 3 [facility]Learn[facility] [id number] 06:08:00 Test Item Value Reference Range Interpretation Comments Meso BF (test code = Meso BF) 2 [facility] [id number] 06:08:00 Test Item Value Reference Range Interpretation Comments Clarity BF (test code = Bloody *ABN*(03/23/20 Clarity BF) 1:08 AM) [facility] CenterEgnyteTVIMLM5101-79-59 06:08:00 Test Item Value Reference Range Interpretation Comments Color BF (test code = Red *ABN*(03/23/20 1:08 Color BF) AM) [facility] [id number] 06:08:00 Test Item Value Reference Range Interpretation Comments Supernat BF (test code = Yellow *ABN*(03/23/20 Supernat BF) 1:08 AM) [facility] CenterEgnyteMIJTOM4266-39-43 06:08:00 Test Item Value Reference Range Interpretation Comments CellCnt BF Type (test Periton (03/23/20 1:08 code = CellCnt BF Type) AM) [facility] [id number] 06:08:00 Test Item Value Reference Range Interpretation Comments Glucose Lvl (test code = Glucose Lvl) 98 70-99 [facility] [id number] 06:08:00 Test Item Value Reference Range Interpretation Comments BUN (test code = BUN) 81 7-22 [facility] [id number] 06:08:00 Test Item Value Reference Range Interpretation Comments Creatinine Lvl (test code = Creatinine 14.40 0.50-1.40 Lvl) [facility] [id number] 06:08:00 Test Item Value Reference Range Interpretation Comments Sodium Lvl (test code = Sodium Lvl) 129 135-145 [facility] [id number] 06:08:00 Test Item Value Reference Range Interpretation Comments Potassium Lvl (test code = Potassium 4.8 3.5-5.1 Lvl) [facility] [id number] 06:08:00 Test Item Value Reference Range Interpretation Comments Chloride Lvl (test code = Chloride Lvl) 90 95-109 [facility] [id number] 06:08:00 Test Item Value Reference Range Interpretation Comments CO2 (test code = CO2) 27 24-32 [facility] [id number] 06:08:00 Test Item Value Reference Range Interpretation Comments Calcium Lvl (test code = Calcium Lvl) 8.7 8.5-10.5 [facility] [id number] 06:08:00 Test Item Value Reference Range Interpretation Comments Total Protein (test code = Total 5.7 6.4-8.4 Protein) [facility] [id number] 06:08:00 Test Item Value Reference Range Interpretation Comments Albumin Lvl (test code = Albumin Lvl) 2.5 3.5-5.0 [facility] [id number] 06:08:00 Test Item Value Reference Range Interpretation Comments ALT (test code = ALT) 32 See_Comment [Auto mated message] The system which ge nerated this result transmit emerson reference range : <=65. The reference range was not used to interpr et this result as erinn l/abnormal. [facility] [id number] 06:08:00 Test Item Value Reference Range Interpretation Comments AST (test code = AST) 36 See_Comment [Auto mated message] The system which ge nerated this result transmit emerson reference range : <=37. The reference range was not used to interpr et this result as erinn l/abnormal. [facility] [id number] 06:08:00 Test Item Value Reference Range Interpretation Comments Alk Phos (test code = Alk Phos) 110 39-136 [facility] [id number] 06:08:00 Test Item Value Reference Range Interpretation Comments Bili Total (test code = Bili Total) 0.5 0.2-1.3 [facility] [id number] 06:08:00 Test Item Value Reference Range Interpretation Comments AGAP (test code = AGAP) 16.8 10.0-20.0 [facility] [id number] 06:08:00 Test Item Value Reference Range Interpretation Comments B/C Ratio (test code = B/C Ratio) 6 1 6-25 [facility]2020-06-15 06:08:00 Test Item Value Reference Range Interpretation Comments Globulin (test code = Globulin) 3.2 2.7-4.2 [place] [id number] 06:08:00 Test Item Value Reference Range Interpretation Comments A/G Ratio (test code = A/G Ratio) 0.8 1 0.7-1.6 [place] [address]-06-15 06:08:00 Test Item Value Reference Range Interpretation Comments eGFR (test code = eGFR) 3 [facility]2020-06-15 06:08:00 Test Item Value Reference Range Interpretation Comments Lactic Acid Lvl (test code = Lactic 0.6 0.5-2.2 Acid Lvl) [place] [address]-06-15 06:08:00 Test Item Value Reference Range Interpretation Comments WBC (test code = WBC) 11.5 3.7-10.4 [place] 031030-06-15 06:08:00 Test Item Value Reference Range Interpretation Comments RBC (test code = RBC) 2.12 4.70-6.10 [place] [address]-06-15 06:08:00 Test Item Value Reference Range Interpretation Comments Hgb (test code = Hgb) 6.1 14.0-18.0 [place] [address]-06-15 06:08:00 Test Item Value Reference Range Interpretation Comments Hct (test code = Hct) 18.4 42.0-54.0 [facility] CenterSzghahhBJVMCNZMUI1144-79-56 06:08:00 Test Item Value Reference Range Interpretation Comments MCV (test code = MCV) 86.5 80.0-94.0 [place] 031030-06-15 06:08:00 Test Item Value Reference Range Interpretation Comments MCH (test code = MCH) 28.6 pg 27.0-31.0 [place] [address]-06-15 06:08:00 Test Item Value Reference Range Interpretation Comments MCHC (test code = MCHC) 33.1 32.0-36.0 [place] [address]-06-15 06:08:00 Test Item Value Reference Range Interpretation Comments RDW (test code = RDW) 15.9 11.5-14.5 [place] 031030-06-15 06:08:00 Test Item Value Reference Range Interpretation Comments Platelet (test code = Platelet) 316 133-450 [facility] CenterZbeopbaPKQZCVCMNI7381-05-72 06:08:00 Test Item Value Reference Range Interpretation Comments MPV (test code = MPV) 6.8 7.4-10.4 [place] 031030-06-15 06:08:00 Test Item Value Reference Range Interpretation Comments PT (test code = PT) 13.9 s 12.0-14.7 [facility] CenterPacpvnuERPAXIXIVY0150-02-87 06:08:00 Test Item Value Reference Range Interpretation Comments INR (test code = INR) 1.07 1 0.85-1.17 [place] 031030-06-15 06:08:00 Test Item Value Reference Range Interpretation Comments RBC Morph (test code = Normal (03/23/20 1:08 RBC Morph) AM) [facility] CenterUqwnnleVLRFDTOAOX9335-80-38 06:08:00 Test Item Value Reference Range Interpretation Comments Plt Morph (test code = Normal (03/23/20 1:08 Plt Morph) AM) [facility] CenterFkuqldnWJTKNEVZBO6899-37-22 06:08:00 Test Item Value Reference Range Interpretation Comments Segs (test code = Segs) 80.9 45.0-75.0 [facility] CenterKsbucarVWTELFUVAE8986-55-73 06:08:00 Test Item Value Reference Range Interpretation Comments Lymphocytes (test code = Lymphocytes) 9.1 20.0-40.0 [facility] CenterIfkylzsOOIWSSEWYI4262-12-59 06:08:00 Test Item Value Reference Range Interpretation Comments Monocytes (test code = Monocytes) 7.3 2.0-12.0 [place] 031030-06-15 06:08:00 Test Item Value Reference Range Interpretation Comments Eosinophils (test code = 2.0 See_Comment [A utomated message] The Eosinophils) system which ge nerated this result tra nsmitted reference range : <=4.0. The reference r yared was not used to int erpret this result as normal/abnormal . [place] 031030-06-15 06:08:00 Test Item Value Reference Range Interpretation Comments Basophils (test code = 0.7 See_Comment [Aut omated message] The Basophils) system which ge nerated this result tra nsmitted reference range : <=1.0. The reference r yared was not used to int erpret this result as normal/abnormal . [facility] CenterDjratuyVSCVXWQRAK1254-75-97 06:08:00 Test Item Value Reference Range Interpretation Comments Neutrophils # (test code = Neutrophils 9.3 1.5-8.1 #) [facility] CenterAagdfuzYYPJUELZJA9028-66-58 06:08:00 Test Item Value Reference Range Interpretation Comments Lymphocytes # (test code = Lymphocytes 1.0 1.0-5.5 #) [facility] CenterNalpvktIGVBSKKXSZ3029-57-96 06:08:00 Test Item Value Reference Range Interpretation Comments Monocytes # (test code 0.8 See_Comment [Aut omated message] The = Monocytes #) system which generated this result tra nsmitted reference range : <=0.8. The reference r yared was not used to int erpret this result as normal/abnormal . [facility] CenterMimytqdBWTCHJJXEU6701-99-43 06:08:00 Test Item Value Reference Range Interpretation Comments Eosinophils # (test code 0.2 See_Comment [A utomated message] The = Eosinophils #) system whic h generated this result tra nsmitted reference range : <=0.5. The reference r yared was not used to int erpret this result as normal/abnormal . [facility]SdfzrhgEEMUIVFCBT0157-06-30 06:08:00 Test Item Value Reference Range Interpretation Comments Basophils # (test code 0.1 See_Comment [Aut omated message] The = Basophils #) system which generated this result tra nsmitted reference range : <=0.2. The reference r yared was not used to int erpret this result as normal/abnormal . [facility] CenterGmpgjenKVSHNODEQL2547-62-71 06:08:00 Test Item Value Reference Range Interpretation Comments Anisocyte (test code = 2+ *ABN*(03/23/20 Anisocyte) 1:08 AM) [facility] CenterCnordmyKQHMPQCLOD4648-00-67 06:08:00 Test Item Value Reference Range Interpretation Comments Macrocyte (test code = 1+ *ABN*(03/23/20 Macrocyte) 1:08 AM) [facility] CenterWmccxjyXUPDSHFZNW8914-20-69 06:08:00 Test Item Value Reference Range Interpretation Comments Microcyte (test code = 1+ *ABN*(03/23/20 Microcyte) 1:08 AM) [place] 031030-06-15 06:08:00 Test Item Value Reference Range Interpretation Comments Spherocyte (test code = Rare *ABN*(03/23/20 Spherocyte) 1:08 AM) [place] [id number] 21:27:00 Test Item Value Reference Range Interpretation Comments Glucose Lvl (test code = Glucose Lvl) 85 70-99 [place] 440190-04-27 21:27:00 Test Item Value Reference Range Interpretation Comments BUN (test code = BUN) 58 7-22 [place] 440190-04-27 21:27:00 Test Item Value Reference Range Interpretation Comments Creatinine Lvl (test code = Creatinine 12.00 0.50-1.40 Lvl) [place] [address]-04-27 21:27:00 Test Item Value Reference Range Interpretation Comments Sodium Lvl (test code = Sodium Lvl) 129 135-145 [place] 440190-04-27 21:27:00 Test Item Value Reference Range Interpretation Comments Potassium Lvl (test code = Potassium 4.2 3.5-5.1 Lvl) [place] 440190-04-27 21:27:00 Test Item Value Reference Range Interpretation Comments Chloride Lvl (test code = Chloride Lvl) 92 95-109 [place] 440190-04-27 21:27:00 Test Item Value Reference Range Interpretation Comments CO2 (test code = CO2) 26 24-32 [place] 440190-04-27 21:27:00 Test Item Value Reference Range Interpretation Comments Calcium Lvl (test code = Calcium Lvl) 8.3 8.5-10.5 [place] 440190-04-27 21:27:00 Test Item Value Reference Range Interpretation Comments Total Protein (test code = Total 5.5 6.4-8.4 Protein) [place] 440190-04-27 21:27:00 Test Item Value Reference Range Interpretation Comments Albumin Lvl (test code = Albumin Lvl) 2.4 3.5-5.0 [place] 440190-04-27 21:27:00 Test Item Value Reference Range Interpretation Comments ALT (test code = ALT) 18 See_Comment [Auto mated message] The system which ge nerated this result transmit emerson reference range : <=65. The reference range was not used to interpr et this result as erinn l/abnormal. [facility] [employer] [id number] 21:27:00 Test Item Value Reference Range Interpretation Comments AST (test code = AST) 20 See_Comment [Auto mated message] The system which ge nerated this result transmit emerson reference range : <=37. The reference range was not used to interpr et this result as erinn l/abnormal. [facility] [id number] 21:27:00 Test Item Value Reference Range Interpretation Comments Alk Phos (test code = Alk Phos) 76 39-136 [facility] [id number] 21:27:00 Test Item Value Reference Range Interpretation Comments Bili Total (test code = Bili Total) 0.3 0.2-1.3 [facility] [id number] 21:27:00 Test Item Value Reference Range Interpretation Comments AGAP (test code = AGAP) 15.2 10.0-20.0 [facility] [id number] 21:27:00 Test Item Value Reference Range Interpretation Comments B/C Ratio (test code = B/C Ratio) 5 1 6-25 [facility] [id number] 21:27:00 Test Item Value Reference Range Interpretation Comments Globulin (test code = Globulin) 3.1 2.7-4.2 [facility] [id number] 21:27:00 Test Item Value Reference Range Interpretation Comments A/G Ratio (test code = A/G Ratio) 0.8 1 0.7-1.6 [facility] [id number] 21:27:00 Test Item Value Reference Range Interpretation Comments eGFR (test code = eGFR) 4 [facility] CenterFatbrsdCYWJZHFWQR1332-89-45 21:27:00 Test Item Value Reference Range Interpretation Comments WBC (test code = WBC) 8.7 3.7-10.4 [facility] CenterFjirumsTNKEUYIGOQ2535-79-94 21:27:00 Test Item Value Reference Range Interpretation Comments RBC (test code = RBC) 2.94 4.70-6.10 [facility] CenterUojzbjwLNVMMVLJWK5722-67-99 21:27:00 Test Item Value Reference Range Interpretation Comments Hgb (test code = Hgb) 8.4 14.0-18.0 [place] [address]-04-27 21:27:00 Test Item Value Reference Range Interpretation Comments Hct (test code = Hct) 25.0 42.0-54.0 [place] [address]-04-27 21:27:00 Test Item Value Reference Range Interpretation Comments MCV (test code = MCV) 84.9 80.0-94.0 [place] [address]-04-27 21:27:00 Test Item Value Reference Range Interpretation Comments MCH (test code = MCH) 28.7 pg 27.0-31.0 [place] [address]-04-27 21:27:00 Test Item Value Reference Range Interpretation Comments MCHC (test code = MCHC) 33.8 32.0-36.0 [place] [address]-04-27 21:27:00 Test Item Value Reference Range Interpretation Comments RDW (test code = RDW) 14.4 11.5-14.5 [place] [address]-04-27 21:27:00 Test Item Value Reference Range Interpretation Comments Platelet (test code = Platelet) 150 133-450 [place] 031030-04-27 21:27:00 Test Item Value Reference Range Interpretation Comments MPV (test code = MPV) 7.6 7.4-10.4 [place] [address]-04-27 21:27:00 Test Item Value Reference Range Interpretation Comments Neutrophils # (test code = Neutrophils 7.7 1.5-8.1 #) [place] 031030-04-27 21:27:00 Test Item Value Reference Range Interpretation Comments Lymphocytes # (test code = Lymphocytes 0.4 1.0-5.5 #) [place] [address]-04-27 21:27:00 Test Item Value Reference Range Interpretation Comments Monocytes # (test code 0.3 See_Comment [Aut omated message] The = Monocytes #) system which generated this result tra nsmitted reference range : <=0.8. The reference r yared was not used to int erpret this result as normal/abnormal . [place] 031030-04-27 21:27:00 Test Item Value Reference Range Interpretation Comments Eosinophils # (test code 0.2 See_Comment [A utomated message] The = Eosinophils #) system whic h generated this result tra nsmitted reference range : <=0.5. The reference r yared was not used to int erpret this result as normal/abnormal . [facility] CenterPtfscqhELVCMGZNRJ1220-20-22 21:27:00 Test Item Value Reference Range Interpretation Comments Segs (test code = Segs) 86.0 45.0-75.0 [facility] CenterOlazwiqZKHKAJXDXB3942-83-36 21:27:00 Test Item Value Reference Range Interpretation Comments Bands (test code = 3.0 See_Comment [Automat ed message] The Bands) system which ge nerated this result transmit emerson reference range : <=11.0. The reference r yared was not used to interpr et this result as erinn l/abnormal. [facility] CenterUsbundkAXBQKMUBMC6313-81-30 21:27:00 Test Item Value Reference Range Interpretation Comments Lymphocytes (test code = Lymphocytes) 3.0 20.0-40.0 [facility] CenterWhylxafGHVAPMDJIV0702-05-03 21:27:00 Test Item Value Reference Range Interpretation Comments Monocytes (test code = Monocytes) 4.0 2.0-12.0 [facility] CenterOjdaikxFZWRXPQMDN6798-93-00 21:27:00 Test Item Value Reference Range Interpretation Comments Eosinophils (test code = 2.0 See_Comment [A utomated message] The Eosinophils) system which ge nerated this result tra nsmitted reference range : <=4.0. The reference r yared was not used to int erpret this result as normal/abnormal . [facility] CenterUfigtekJOVRZMCFQM2506-76-46 21:27:00 Test Item Value Reference Range Interpretation Comments Atypical Lymphs (test code = Atypical 2.0 Lymphs) [facility] CenterFqwbaelALDKDFERTA9766-06-28 21:27:00 Test Item Value Reference Range Interpretation Comments RBC Morph (test code = Normal (02/03/20 4:27 RBC Morph) PM) [facility] CenterIhgxtvrXZISHFWDYZ5627-79-22 21:27:00 Test Item Value Reference Range Interpretation Comments Plt Morph (test code = Normal (02/03/20 4:27 Plt Morph) PM) [facility] CenterJyokfwaKGNSBNKHWD7761-40-44 21:27:00 Test Item Value Reference Range Interpretation Comments Anisocyte (test code = 1+ *ABN*(02/03/20 Anisocyte) 4:27 PM) [facility]2020-04-27 21:27:00 Test Item Value Reference Range Interpretation Comments Glucose Lvl (test code = Glucose Lvl) 85 70-99 [facility]2020-04-27 21:27:00 Test Item Value Reference Range Interpretation Comments BUN (test code = BUN) 58 7-22 [facility]2020-04-27 21:27:00 Test Item Value Reference Range Interpretation Comments Creatinine Lvl (test code = Creatinine 12.00 0.50-1.40 Lvl) [facility]2020-04-27 21:27:00 Test Item Value Reference Range Interpretation Comments Sodium Lvl (test code = Sodium Lvl) 129 135-145 [facility]2020-04-27 21:27:00 Test Item Value Reference Range Interpretation Comments Potassium Lvl (test code = Potassium 4.2 3.5-5.1 Lvl) [facility]2020-04-27 21:27:00 Test Item Value Reference Range Interpretation Comments Chloride Lvl (test code = Chloride Lvl) 92 95-109 [facility]2020-04-27 21:27:00 Test Item Value Reference Range Interpretation Comments CO2 (test code = CO2) 26 24-32 [place] 440190-04-27 21:27:00 Test Item Value Reference Range Interpretation Comments Calcium Lvl (test code = Calcium Lvl) 8.3 8.5-10.5 [facility]2020-04-27 21:27:00 Test Item Value Reference Range Interpretation Comments Total Protein (test code = Total 5.5 6.4-8.4 Protein) [facility]2020-04-27 21:27:00 Test Item Value Reference Range Interpretation Comments Albumin Lvl (test code = Albumin Lvl) 2.4 3.5-5.0 [facility]2020-04-27 21:27:00 Test Item Value Reference Range Interpretation Comments ALT (test code = ALT) 18 See_Comment [Auto mated message] The system which ge nerated this result transmit emerson reference range : <=65. The reference range was not used to interpr et this result as erinn l/abnormal. [facility] CenterDurect Corp. [id number] 21:27:00 Test Item Value Reference Range Interpretation Comments AST (test code = AST) 20 See_Comment [Auto mated message] The system which ge nerated this result transmit emerson reference range : <=37. The reference range was not used to interpr et this result as erinn l/abnormal. [facility] [employer] [id number] 21:27:00 Test Item Value Reference Range Interpretation Comments Alk Phos (test code = Alk Phos) 76 39-136 [facility] [id number] 21:27:00 Test Item Value Reference Range Interpretation Comments Bili Total (test code = Bili Total) 0.3 0.2-1.3 [facility] [id number] 21:27:00 Test Item Value Reference Range Interpretation Comments AGAP (test code = AGAP) 15.2 10.0-20.0 [facility] [id number] 21:27:00 Test Item Value Reference Range Interpretation Comments B/C Ratio (test code = B/C Ratio) 5 1 6-25 [facility] [id number] 21:27:00 Test Item Value Reference Range Interpretation Comments Globulin (test code = Globulin) 3.1 2.7-4.2 [facility] [id number] 21:27:00 Test Item Value Reference Range Interpretation Comments A/G Ratio (test code = A/G Ratio) 0.8 1 0.7-1.6 [facility] [id number] 21:27:00 Test Item Value Reference Range Interpretation Comments eGFR (test code = eGFR) 4 [facility] CenterSklyvjrUSJGZNYBMK2950-56-09 21:27:00 Test Item Value Reference Range Interpretation Comments WBC (test code = WBC) 8.7 3.7-10.4 [facility] CenterRieaccsHMUSOIDWVK4697-54-60 21:27:00 Test Item Value Reference Range Interpretation Comments RBC (test code = RBC) 2.94 4.70-6.10 [facility] CenterMwtaxnoHIBQIIJONJ5068-06-90 21:27:00 Test Item Value Reference Range Interpretation Comments Hgb (test code = Hgb) 8.4 14.0-18.0 [facility] CenterMdsexuuGNOYAVJZNU1015-08-02 21:27:00 Test Item Value Reference Range Interpretation Comments Hct (test code = Hct) 25.0 42.0-54.0 [facility] CenterGggogdvXOYLMXOXJH9206-67-66 21:27:00 Test Item Value Reference Range Interpretation Comments MCV (test code = MCV) 84.9 80.0-94.0 [facility] CenterItiiqibGEHSBUERVL4099-78-97 21:27:00 Test Item Value Reference Range Interpretation Comments MCH (test code = MCH) 28.7 pg 27.0-31.0 [facility] CenterFprukigISVSTXIPHB6114-03-59 21:27:00 Test Item Value Reference Range Interpretation Comments MCHC (test code = MCHC) 33.8 32.0-36.0 [facility] CenterBjwutjnLHTVVHUQMC9161-04-06 21:27:00 Test Item Value Reference Range Interpretation Comments RDW (test code = RDW) 14.4 11.5-14.5 [place] 031030-04-27 21:27:00 Test Item Value Reference Range Interpretation Comments Platelet (test code = Platelet) 150 133-450 [facility] CenterNgffvcbSMJIKGJIJR2942-00-99 21:27:00 Test Item Value Reference Range Interpretation Comments MPV (test code = MPV) 7.6 7.4-10.4 [facility] CenterZufbqajDADESCDXCA4778-87-01 21:27:00 Test Item Value Reference Range Interpretation Comments Neutrophils # (test code = Neutrophils 7.7 1.5-8.1 #) [facility] CenterUnaazioOSQDXXICPR5125-43-29 21:27:00 Test Item Value Reference Range Interpretation Comments Lymphocytes # (test code = Lymphocytes 0.4 1.0-5.5 #) [facility] CenterRolvvuqXOIEGVJWJN3916-72-62 21:27:00 Test Item Value Reference Range Interpretation Comments Monocytes # (test code 0.3 See_Comment [Aut omated message] The = Monocytes #) system which generated this result tra nsmitted reference range : <=0.8. The reference r yared was not used to int erpret this result as normal/abnormal . [facility] CenterQfkncbfZHFPVOPUIA9413-40-89 21:27:00 Test Item Value Reference Range Interpretation Comments Eosinophils # (test code 0.2 See_Comment [A utomated message] The = Eosinophils #) system whic h generated this result tra nsmitted reference range : <=0.5. The reference r yared was not used to int erpret this result as normal/abnormal . [facility] CenterCmddvdxZCZEVVVPVI6152-66-42 21:27:00 Test Item Value Reference Range Interpretation Comments Segs (test code = Segs) 86.0 45.0-75.0 [facility] CenterCovfyedZEBZPMIFPI0233-39-46 21:27:00 Test Item Value Reference Range Interpretation Comments Bands (test code = 3.0 See_Comment [Automat ed message] The Bands) system which ge nerated this result transmit emerson reference range : <=11.0. The reference r yared was not used to interpr et this result as eirnn l/abnormal. [facility] CenterAudpqchOVVNGHARVL3421-75-65 21:27:00 Test Item Value Reference Range Interpretation Comments Lymphocytes (test code = Lymphocytes) 3.0 20.0-40.0 [facility] CenterZholnepZWGJOMYMZB0699-02-55 21:27:00 Test Item Value Reference Range Interpretation Comments Monocytes (test code = Monocytes) 4.0 2.0-12.0 [facility] CenterVxdwowfPNWEYKMFXF4820-88-08 21:27:00 Test Item Value Reference Range Interpretation Comments Eosinophils (test code = 2.0 See_Comment [A utomated message] The Eosinophils) system which ge nerated this result tra nsmitted reference range : <=4.0. The reference r yared was not used to int erpret this result as normal/abnormal . [facility] CenterYbtcenaNFACIYOJOQ3889-88-39 21:27:00 Test Item Value Reference Range Interpretation Comments Atypical Lymphs (test code = Atypical 2.0 Lymphs) [facility] CenterXrzxhfiAKBWCKMQDJ1668-66-23 21:27:00 Test Item Value Reference Range Interpretation Comments RBC Morph (test code = Normal (02/03/20 4:27 RBC Morph) PM) [facility] CenterSvkrapsYDPFLHBGGD2176-76-79 21:27:00 Test Item Value Reference Range Interpretation Comments Plt Morph (test code = Normal (02/03/20 4:27 Plt Morph) PM) [facility] CenterBwzngslZUTOFZRQRH2763-95-53 21:27:00 Test Item Value Reference Range Interpretation Comments Anisocyte (test code = 1+ *ABN*(02/03/20 Anisocyte) 4:27 PM) [facility]BcpvpjrMVABGSRTXQ5418-04-56 21:14:00 Test Item Value Reference Range Interpretation Comments Coronavirus (COVID-19) Not Detected (02/03/20 JUVENCIO (test code = 4:14 PM) Coronavirus (COVID-19) JUVENCIO) [facility] SouthJbjyfqtNCIMZTGGNC8770-18-71 21:14:00 Test Item Value Reference Range Interpretation Comments Coronavirus (COVID-19) Not Detected (02/03/20 JUVENCIO (test code = 4:14 PM) Coronavirus (COVID-19) JUVENCIO) [facility]2020-01-27 18:30:00 Test Item Value Reference Range Interpretation Comments Color BF (test code = Colorless (11/04/19 12:30 Color BF) PM) [facility]2020-01-27 18:30:00 Test Item Value Reference Range Interpretation Comments Clarity BF (test code = Clear (11/04/19 12:30 Clarity BF) PM) [facility]2020-01-27 18:30:00 Test Item Value Reference Range Interpretation Comments Nucleated Cells BF (test code = 11 Nucleated Cells BF) [facility]2020-01-27 18:30:00 Test Item Value Reference Range Interpretation Comments RBC BF (test code = RBC BF) 11 [facility]2020-01-27 18:30:00 Test Item Value Reference Range Interpretation Comments Neutrophils BF (test code = Neutrophils 11 BF) [facility]2020-01-27 18:30:00 Test Item Value Reference Range Interpretation Comments Lymph BF (test code = Lymph BF) 56 [facility]2020-01-27 18:30:00 Test Item Value Reference Range Interpretation Comments Macrophage BF (test code = Macrophage 33 BF) [facility]2020-01-27 18:30:00 Test Item Value Reference Range Interpretation Comments CellCnt BF Type (test Periton (11/04/19 12:30 code = CellCnt BF Type) PM) [facility] CenterGram Stain Khefqm6391-54-01 18:30:00 Test Item Value Reference Range Interpretation Comments Gram Stain Report Rare WBC's No Organisms (test code = Gram Seen Stain Report) [facility] CenterCulture: Aspirate/Body Fluid/Qfbehg9454-12-85 18:30:00 Test Item Value Reference Range Interpretation Comments Culture: 48 Hour Report - No Aspirate/Body Growth, Holding Fluid/Tissue (test code = Culture: Aspirate/Body Fluid/Tissue) [facility]2020-01-27 18:30:00 Test Item Value Reference Range Interpretation Comments Color BF (test code = Colorless (11/04/19 12:30 Color BF) PM) [facility] CenterLearnBIG [id number] 18:30:00 Test Item Value Reference Range Interpretation Comments Clarity BF (test code = Clear (11/04/19 12:30 Clarity BF) PM) [facility]2020-01-27 18:30:00 Test Item Value Reference Range Interpretation Comments Nucleated Cells BF (test code = 11 Nucleated Cells BF) [facility]2020-01-27 18:30:00 Test Item Value Reference Range Interpretation Comments RBC BF (test code = RBC BF) 11 [facility]2020-01-27 18:30:00 Test Item Value Reference Range Interpretation Comments Neutrophils BF (test code = Neutrophils 11 BF) [facility] [id number] 18:30:00 Test Item Value Reference Range Interpretation Comments Lymph BF (test code = Lymph BF) 56 [facility]2020-01-27 18:30:00 Test Item Value Reference Range Interpretation Comments Macrophage BF (test code = Macrophage 33 BF) [facility]2020-01-27 18:30:00 Test Item Value Reference Range Interpretation Comments CellCnt BF Type (test Periton (11/04/19 12:30 code = CellCnt BF Type) PM) [facility] CenterGram Stain Hobtao1122-19-18 18:30:00 Test Item Value Reference Range Interpretation Comments Gram Stain Report Rare WBC's No Organisms (test code = Gram Seen Stain Report) [facility] CenterCulture: Aspirate/Body Fluid/[id number] 18:30:00 Test Item Value Reference Range Interpretation Comments Culture: 48 Hour Report - No Aspirate/Body Growth, Holding Fluid/Tissue (test code = Culture: Aspirate/Body Fluid/Tissue) [facility] [id number] 18:00:00 Test Item Value Reference Range Interpretation Comments Glucose Lvl (test code = Glucose Lvl) 125 70-99 [facility] [id number] 18:00:00 Test Item Value Reference Range Interpretation Comments BUN (test code = BUN) 40 7-22 [facility] [id number] 18:00:00 Test Item Value Reference Range Interpretation Comments Creatinine Lvl (test code = Creatinine 10.60 0.50-1.40 Lvl) [facility] [id number] 18:00:00 Test Item Value Reference Range Interpretation Comments Sodium Lvl (test code = Sodium Lvl) 141 135-145 [place] 440190-01-27 18:00:00 Test Item Value Reference Range Interpretation Comments Potassium Lvl (test code = Potassium 3.8 3.5-5.1 Lvl) [facility]2020-01-27 18:00:00 Test Item Value Reference Range Interpretation Comments Chloride Lvl (test code = Chloride Lvl) 101 95-109 [facility]2020-01-27 18:00:00 Test Item Value Reference Range Interpretation Comments CO2 (test code = CO2) 32 24-32 [facility]2020-01-27 18:00:00 Test Item Value Reference Range Interpretation Comments Calcium Lvl (test code = Calcium Lvl) 9.3 8.5-10.5 [facility]2020-01-27 18:00:00 Test Item Value Reference Range Interpretation Comments AGAP (test code = AGAP) 11.8 10.0-20.0 [facility]2020-01-27 18:00:00 Test Item Value Reference Range Interpretation Comments eGFR (test code = eGFR) 5 [facility]2020-01-27 18:00:00 Test Item Value Reference Range Interpretation Comments Glucose Lvl (test code = Glucose Lvl) 125 70-99 [facility]2020-01-27 18:00:00 Test Item Value Reference Range Interpretation Comments BUN (test code = BUN) 40 7-22 [facility]2020-01-27 18:00:00 Test Item Value Reference Range Interpretation Comments Creatinine Lvl (test code = Creatinine 10.60 0.50-1.40 Lvl) [facility]2020-01-27 18:00:00 Test Item Value Reference Range Interpretation Comments Sodium Lvl (test code = Sodium Lvl) 141 135-145 [facility]2020-01-27 18:00:00 Test Item Value Reference Range Interpretation Comments Potassium Lvl (test code = Potassium 3.8 3.5-5.1 Lvl) [facility]2020-01-27 18:00:00 Test Item Value Reference Range Interpretation Comments Chloride Lvl (test code = Chloride Lvl) 101 95-109 [facility]2020-01-27 18:00:00 Test Item Value Reference Range Interpretation Comments CO2 (test code = CO2) 32 24-32 [facility] [facility]2020-01-27 18:00:00 Test Item Value Reference Range Interpretation Comments Calcium Lvl (test code = Calcium Lvl) 9.3 8.5-10.5 [facility]2020-01-27 18:00:00 Test Item Value Reference Range Interpretation Comments AGAP (test code = AGAP) 11.8 10.0-20.0 [facility]2020-01-27 18:00:00 Test Item Value Reference Range Interpretation Comments eGFR (test code = eGFR) 5 [place] [id number] 18:08:00 Test Item Value Reference Range Interpretation Comments Vanco Lvl (test code = Vanco Lvl) 10.2 [place] [id number] 18:08:00 Test Item Value Reference Range Interpretation Comments Vanco Lvl (test code = Vanco Lvl) 10.2 [facility]2020-01-26 13:45:00 Test Item Value Reference Range Interpretation Comments Glucose Lvl (test code = Glucose Lvl) 163 70-99 [facility]2020-01-26 13:45:00 Test Item Value Reference Range Interpretation Comments BUN (test code = BUN) 35 7-22 [facility]2020-01-26 13:45:00 Test Item Value Reference Range Interpretation Comments Creatinine Lvl (test code = Creatinine 9.71 0.50-1.40 Lvl) [facility]2020-01-26 13:45:00 Test Item Value Reference Range Interpretation Comments Sodium Lvl (test code = Sodium Lvl) 139 135-145 [facility]2020-01-26 13:45:00 Test Item Value Reference Range Interpretation Comments Potassium Lvl (test code = Potassium 3.4 3.5-5.1 Lvl) [facility]2020-01-26 13:45:00 Test Item Value Reference Range Interpretation Comments Chloride Lvl (test code = Chloride Lvl) 102 95-109 [facility]2020-01-26 13:45:00 Test Item Value Reference Range Interpretation Comments CO2 (test code = CO2) 29 24-32 [facility]2020-01-26 13:45:00 Test Item Value Reference Range Interpretation Comments Calcium Lvl (test code = Calcium Lvl) 9.0 8.5-10.5 [facility]2020-01-26 13:45:00 Test Item Value Reference Range Interpretation Comments AGAP (test code = AGAP) 11.4 10.0-20.0 [facility]2020-01-26 13:45:00 Test Item Value Reference Range Interpretation Comments eGFR (test code = eGFR) 5 [facility]mx[facility]ewQPPADIDRTR2369-16-75 13:45:00 Test Item Value Reference Range Interpretation Comments WBC (test code = WBC) 4.3 3.7-10.4 [place] 031030-01-26 13:45:00 Test Item Value Reference Range Interpretation Comments RBC (test code = RBC) 3.00 4.70-6.10 [place] 031030-01-26 13:45:00 Test Item Value Reference Range Interpretation Comments Hgb (test code = Hgb) 8.4 14.0-18.0 [place] 031030-01-26 13:45:00 Test Item Value Reference Range Interpretation Comments Hct (test code = Hct) 25.3 42.0-54.0 [place] 031030-01-26 13:45:00 Test Item Value Reference Range Interpretation Comments MCV (test code = MCV) 84.3 80.0-94.0 [place] 031030-01-26 13:45:00 Test Item Value Reference Range Interpretation Comments MCH (test code = MCH) 28.2 pg 27.0-31.0 [place] 031030-01-26 13:45:00 Test Item Value Reference Range Interpretation Comments MCHC (test code = MCHC) 33.4 32.0-36.0 [place] 031030-01-26 13:45:00 Test Item Value Reference Range Interpretation Comments RDW (test code = RDW) 14.5 11.5-14.5 [facility]OlbhpujQIYNGOAZQV9887-06-28 13:45:00 Test Item Value Reference Range Interpretation Comments Platelet (test code = Platelet) 217 133-450 [facility] CenterTegjdeuQJHXXZAQVN7692-41-59 13:45:00 Test Item Value Reference Range Interpretation Comments MPV (test code = MPV) 6.5 7.4-10.4 [place] 031030-01-26 13:45:00 Test Item Value Reference Range Interpretation Comments Segs (test code = Segs) 66.4 45.0-75.0 [place] 031030-01-26 13:45:00 Test Item Value Reference Range Interpretation Comments Lymphocytes (test code = Lymphocytes) 19.6 20.0-40.0 [place] 031030-01-26 13:45:00 Test Item Value Reference Range Interpretation Comments Monocytes (test code = Monocytes) 9.3 2.0-12.0 [place] 031030-01-26 13:45:00 Test Item Value Reference Range Interpretation Comments Eosinophils (test code = 3.7 See_Comment [A utomated message] The Eosinophils) system which ge nerated this result tra nsmitted reference range : <=4.0. The reference r yared was not used to int erpret this result as normal/abnormal . [place] 031030-01-26 13:45:00 Test Item Value Reference Range Interpretation Comments Basophils (test code = 1.0 See_Comment [Aut omated message] The Basophils) system which ge nerated this result tra nsmitted reference range : <=1.0. The reference r yared was not used to int erpret this result as normal/abnormal . [facility] CenterIgnttizSCEGBVFTBG2468-44-42 13:45:00 Test Item Value Reference Range Interpretation Comments Neutrophils # (test code = Neutrophils 2.8 1.5-8.1 #) [place] 031030-01-26 13:45:00 Test Item Value Reference Range Interpretation Comments Lymphocytes # (test code = Lymphocytes 0.8 1.0-5.5 #) [place] 031030-01-26 13:45:00 Test Item Value Reference Range Interpretation Comments Monocytes # (test code 0.4 See_Comment [Aut omated message] The = Monocytes #) system which generated this result tra nsmitted reference range : <=0.8. The reference r yared was not used to int erpret this result as normal/abnormal . [place] 031030-01-26 13:45:00 Test Item Value Reference Range Interpretation Comments Eosinophils # (test code 0.2 See_Comment [A utomated message] The = Eosinophils #) system whic h generated this result tra nsmitted reference range : <=0.5. The reference r yared was not used to int erpret this result as normal/abnormal . [facility]2020-01-26 13:45:00 Test Item Value Reference Range Interpretation Comments Glucose Lvl (test code = Glucose Lvl) 163 70-99 [place] 440190-01-26 13:45:00 Test Item Value Reference Range Interpretation Comments BUN (test code = BUN) 35 7-22 [place] [address]-01-26 13:45:00 Test Item Value Reference Range Interpretation Comments Creatinine Lvl (test code = Creatinine 9.71 0.50-1.40 Lvl) [place] 440190-01-26 13:45:00 Test Item Value Reference Range Interpretation Comments Sodium Lvl (test code = Sodium Lvl) 139 135-145 [place] 440190-01-26 13:45:00 Test Item Value Reference Range Interpretation Comments Potassium Lvl (test code = Potassium 3.4 3.5-5.1 Lvl) [place] 440190-01-26 13:45:00 Test Item Value Reference Range Interpretation Comments Chloride Lvl (test code = Chloride Lvl) 102 95-109 [place] 440190-01-26 13:45:00 Test Item Value Reference Range Interpretation Comments CO2 (test code = CO2) 29 24-32 [place] 440190-01-26 13:45:00 Test Item Value Reference Range Interpretation Comments Calcium Lvl (test code = Calcium Lvl) 9.0 8.5-10.5 [place] 440190-01-26 13:45:00 Test Item Value Reference Range Interpretation Comments AGAP (test code = AGAP) 11.4 10.0-20.0 [place] 440190-01-26 13:45:00 Test Item Value Reference Range Interpretation Comments eGFR (test code = eGFR) 5 [place] 031030-01-26 13:45:00 Test Item Value Reference Range Interpretation Comments WBC (test code = WBC) 4.3 3.7-10.4 [place] 031030-01-26 13:45:00 Test Item Value Reference Range Interpretation Comments RBC (test code = RBC) 3.00 4.70-6.10 [facility] CenterHqhuvovBQHZBWUUJX1296-09-84 13:45:00 Test Item Value Reference Range Interpretation Comments Hgb (test code = Hgb) 8.4 14.0-18.0 [place] 031030-01-26 13:45:00 Test Item Value Reference Range Interpretation Comments Hct (test code = Hct) 25.3 42.0-54.0 [place] 031030-01-26 13:45:00 Test Item Value Reference Range Interpretation Comments MCV (test code = MCV) 84.3 80.0-94.0 [place] [address]-01-26 13:45:00 Test Item Value Reference Range Interpretation Comments MCH (test code = MCH) 28.2 pg 27.0-31.0 [place] 031030-01-26 13:45:00 Test Item Value Reference Range Interpretation Comments MCHC (test code = MCHC) 33.4 32.0-36.0 [facility] CenterRsxvulmZIRWWVMINA3925-71-53 13:45:00 Test Item Value Reference Range Interpretation Comments RDW (test code = RDW) 14.5 11.5-14.5 [place] 031030-01-26 13:45:00 Test Item Value Reference Range Interpretation Comments Platelet (test code = Platelet) 217 133-450 [facility] CenterCjibvgkCVYZZREFGM6901-56-90 13:45:00 Test Item Value Reference Range Interpretation Comments MPV (test code = MPV) 6.5 7.4-10.4 [place] 031030-01-26 13:45:00 Test Item Value Reference Range Interpretation Comments Segs (test code = Segs) 66.4 45.0-75.0 [place] 031030-01-26 13:45:00 Test Item Value Reference Range Interpretation Comments Lymphocytes (test code = Lymphocytes) 19.6 20.0-40.0 [place] [address]-01-26 13:45:00 Test Item Value Reference Range Interpretation Comments Monocytes (test code = Monocytes) 9.3 2.0-12.0 [place] 031030-01-26 13:45:00 Test Item Value Reference Range Interpretation Comments Eosinophils (test code = 3.7 See_Comment [A utomated message] The Eosinophils) system which ge nerated this result tra nsmitted reference range : <=4.0. The reference r yared was not used to int erpret this result as normal/abnormal . [facility] CenterVwbsemaCZPFBYBCKZ6487-18-38 13:45:00 Test Item Value Reference Range Interpretation Comments Basophils (test code = 1.0 See_Comment [Aut omated message] The Basophils) system which ge nerated this result tra nsmitted reference range : <=1.0. The reference r yared was not used to int erpret this result as normal/abnormal . [facility] CenterSirpfikLZPIRUDLLD1296-52-93 13:45:00 Test Item Value Reference Range Interpretation Comments Neutrophils # (test code = Neutrophils 2.8 1.5-8.1 #) [facility] CenterPlteoxsTTVWVKJZFT7698-11-04 13:45:00 Test Item Value Reference Range Interpretation Comments Lymphocytes # (test code = Lymphocytes 0.8 1.0-5.5 #) [place] 031030-01-26 13:45:00 Test Item Value Reference Range Interpretation Comments Monocytes # (test code 0.4 See_Comment [Aut omated message] The = Monocytes #) system which generated this result tra nsmitted reference range : <=0.8. The reference r yared was not used to int erpret this result as normal/abnormal . [facility] CenterDxxzmjxFSILGPKOCQ4616-55-12 13:45:00 Test Item Value Reference Range Interpretation Comments Eosinophils # (test code 0.2 See_Comment [A utomated message] The = Eosinophils #) system whic h generated this result tra nsmitted reference range : <=0.5. The reference r yared was not used to int erpret this result as normal/abnormal . [facility]EnqppzzKMYLJACJXDLY8879-72-90 13:25:00 Test Item Value Reference Range Interpretation Comments Sodium Lvl (test code = Sodium Lvl) 136 135-145 [facility] HospitalXqlicjfMDMLSHAETEDS9053-03-26 13:25:00 Test Item Value Reference Range Interpretation Comments Potassium Lvl (test code = Potassium 3.7 3.5-5.1 Lvl) [facility] HospitalZaztvtqYRLUBKOBGRAL6013-13-82 13:25:00 Test Item Value Reference Range Interpretation Comments Chloride Lvl (test code = Chloride Lvl) 99 95-109 [place] 012940-01-25 13:25:00 Test Item Value Reference Range Interpretation Comments Glucose Lvl (test code = Glucose Lvl) 137 70-99 [facility] HospitalTlkukmoMAHYLEDGPUQF2308-01-86 13:25:00 Test Item Value Reference Range Interpretation Comments BUN (test code = BUN) 42 7-22 [facility] HospitalObdssotAWROAJZHIFHQ1387-28-85 13:25:00 Test Item Value Reference Range Interpretation Comments Creatinine Lvl (test code = Creatinine 9.35 0.50-1.40 Lvl) [facility] HospitalNceslgrLDUOWWKGKFBB0131-36-22 13:25:00 Test Item Value Reference Range Interpretation Comments CO2 (test code = CO2) 32 24-32 [facility] HospitalWbnvtkcZSYRHKSHEJTV5814-65-71 13:25:00 Test Item Value Reference Range Interpretation Comments Calcium Lvl (test code = Calcium Lvl) 8.8 8.5-10.5 [facility] HospitalAeannksAMEHPKBYWLED9362-43-55 13:25:00 Test Item Value Reference Range Interpretation Comments AGAP (test code = AGAP) 8.7 10.0-20.0 [facility] HospitalTnpyhpeSQLQPFWONWJQ9342-53-26 13:25:00 Test Item Value Reference Range Interpretation Comments eGFR (test code = eGFR) 6 [facility] HospitalKruocvkBQDVGLOJUCIU7208-71-37 13:25:00 Test Item Value Reference Range Interpretation Comments Sodium Lvl (test code = Sodium Lvl) 136 135-145 [facility] HospitalGtfhsfgDZSFYHYPLTBW0782-87-89 13:25:00 Test Item Value Reference Range Interpretation Comments Potassium Lvl (test code = Potassium 3.7 3.5-5.1 Lvl) [facility] HospitalWjyfxkhMVRVLUQJXLFZ4335-84-57 13:25:00 Test Item Value Reference Range Interpretation Comments Chloride Lvl (test code = Chloride Lvl) 99 95-109 [facility] HospitalOdndnpyRAYFPOKRBUKP8473-25-96 13:25:00 Test Item Value Reference Range Interpretation Comments Glucose Lvl (test code = Glucose Lvl) 137 70-99 [facility] HospitalFoktppsGRAXREKSQOQU6891-26-06 13:25:00 Test Item Value Reference Range Interpretation Comments BUN (test code = BUN) 42 7-22 [facility] HospitalYmxjnzeJSOLYKKLYZCX1280-67-65 13:25:00 Test Item Value Reference Range Interpretation Comments Creatinine Lvl (test code = Creatinine 9.35 0.50-1.40 Lvl) [facility]IqcgdylRWFEJZCKPXMC7724-47-60 13:25:00 Test Item Value Reference Range Interpretation Comments CO2 (test code = CO2) 32 24-32 [facility] ResourcesEsijvztUCCWAEIGNJVO7849-99-60 13:25:00 Test Item Value Reference Range Interpretation Comments Calcium Lvl (test code = Calcium Lvl) 8.8 8.5-10.5 [facility] ResourcesWnqcslfEYYNPDLTMYHZ2248-85-83 13:25:00 Test Item Value Reference Range Interpretation Comments AGAP (test code = AGAP) 8.7 10.0-20.0 [facility] ResourcesTbjsqbfYOBYEKRDEABV9691-66-03 13:25:00 Test Item Value Reference Range Interpretation Comments eGFR (test code = eGFR) 6 [facility]LyuwdqiRWAQGKQXWM1780-04-80 17:58:00 Test Item Value Reference Range Interpretation Comments Vanco Lvl (test code = Vanco Lvl) 10.6 [facility]TzafizkDQXCBLBAOO0781-80-10 17:58:00 Test Item Value Reference Range Interpretation Comments Vanco Lvl (test code = Vanco Lvl) 10.6 [facility] [id number] 15:00:00 Test Item Value Reference Range Interpretation Comments Color BF (test code = Colorless (11/01/19 9:00 Color BF) AM) [facility]2020-01-24 15:00:00 Test Item Value Reference Range Interpretation Comments Clarity BF (test code = Slight Cloudy (11/01/19 Clarity BF) 9:00 AM) [facility] [id number] 15:00:00 Test Item Value Reference Range Interpretation Comments Nucleated Cells BF (test code = 579 Nucleated Cells BF) [facility] JONPOE0725-22-21 15:00:00 Test Item Value Reference Range Interpretation Comments RBC BF (test code = RBC BF) 54 [facility] [id number] 15:00:00 Test Item Value Reference Range Interpretation Comments Neutrophils BF (test code = Neutrophils 20 BF) [facility] CHFPGV6220-25-23 15:00:00 Test Item Value Reference Range Interpretation Comments Lymph BF (test code = Lymph BF) 41 [facility] GPCPTR9106-40-97 15:00:00 Test Item Value Reference Range Interpretation Comments Macrophage BF (test code = Macrophage 35 BF) [facility] [id number] 15:00:00 Test Item Value Reference Range Interpretation Comments Meso BF (test code = Meso BF) 4 [facility] DXRNTQ1498-21-42 15:00:00 Test Item Value Reference Range Interpretation Comments CellCnt BF Type (test Periton (11/01/19 9:00 code = CellCnt BF Type) AM) [facility] Eteosi7963-40-91 15:00:00 Test Item Value Reference Range Interpretation Comments Gram Stain Report No Wbc'S Or Organisms (test code = Gram Seen Stain Report) [facility] CenterCulture: Aspirate/Body Fluid/Dsdnwv4366-14-24 15:00:00 Test Item Value Reference Range Interpretation Comments Culture: Aspirate/Body Fluid/Tissue No Growth (test code = Culture: Aspirate/Body Fluid/Tissue) [facility]2020-01-24 15:00:00 Test Item Value Reference Range Interpretation Comments Color BF (test code = Colorless (11/01/19 9:00 Color BF) AM) [facility]2020-01-24 15:00:00 Test Item Value Reference Range Interpretation Comments Clarity BF (test code = Slight Cloudy (11/01/19 Clarity BF) 9:00 AM) [facility]2020-01-24 15:00:00 Test Item Value Reference Range Interpretation Comments Nucleated Cells BF (test code = 579 Nucleated Cells BF) [facility]2020-01-24 15:00:00 Test Item Value Reference Range Interpretation Comments RBC BF (test code = RBC BF) 54 [facility]2020-01-24 15:00:00 Test Item Value Reference Range Interpretation Comments Neutrophils BF (test code = Neutrophils 20 BF) [facility]2020-01-24 15:00:00 Test Item Value Reference Range Interpretation Comments Lymph BF (test code = Lymph BF) 41 [facility]2020-01-24 15:00:00 Test Item Value Reference Range Interpretation Comments Macrophage BF (test code = Macrophage 35 BF) [facility]2020-01-24 15:00:00 Test Item Value Reference Range Interpretation Comments Meso BF (test code = Meso BF) 4 [facility]2020-01-24 15:00:00 Test Item Value Reference Range Interpretation Comments CellCnt BF Type (test Periton (11/01/19 9:00 code = CellCnt BF Type) AM) [facility] CenterGram Stain Wrlooa2703-35-87 15:00:00 Test Item Value Reference Range Interpretation Comments Gram Stain Report No Wbc'S Or Organisms (test code = Gram Seen Stain Report) [facility] CenterCulture: Aspirate/Body Fluid/Shqlhl6642-94-17 15:00:00 Test Item Value Reference Range Interpretation Comments Culture: Aspirate/Body Fluid/Tissue No Growth (test code = Culture: Aspirate/Body Fluid/Tissue) [facility] [id number] 18:35:00 Test Item Value Reference Range Interpretation Comments Color BF (test code = Colorless (10/31/19 12:35 Color BF) PM) [facility]2020-01-23 18:35:00 Test Item Value Reference Range Interpretation Comments Clarity BF (test code = Slight Cloudy (10/31/19 Clarity BF) 12:35 PM) [facility] [id number] 18:35:00 Test Item Value Reference Range Interpretation Comments Nucleated Cells BF (test code = 557 Nucleated Cells BF) [facility] [id number] 18:35:00 Test Item Value Reference Range Interpretation Comments RBC BF (test code = RBC BF) 0 [facility] [id number] 18:35:00 Test Item Value Reference Range Interpretation Comments Neutrophils BF (test code = Neutrophils 35 BF) [facility] [id number] 18:35:00 Test Item Value Reference Range Interpretation Comments Lymph BF (test code = Lymph BF) 21 [facility] [id number] 18:35:00 Test Item Value Reference Range Interpretation Comments Macrophage BF (test code = Macrophage 43 BF) [facility] [id number] 18:35:00 Test Item Value Reference Range Interpretation Comments Eos BF (test code = Eos BF) 1 [facility] [id number] 18:35:00 Test Item Value Reference Range Interpretation Comments CellCnt BF Type (test Periton (10/31/19 12:35 code = CellCnt BF Type) PM) [facility] CenterGram Stain Vnptpn2048-11-59 18:35:00 Test Item Value Reference Range Interpretation Comments Gram Stain Report Rare WBC's No Organisms (test code = Gram Seen Stain Report) [facility]: Aspirate/Body Fluid/Froyrr0746-43-14 18:35:00 Test Item Value Reference Range Interpretation Comments Culture: Aspirate/Body Fluid/Tissue No Growth (test code = Culture: Aspirate/Body Fluid/Tissue) [facility]2020-01-23 18:35:00 Test Item Value Reference Range Interpretation Comments Color BF (test code = Colorless (10/31/19 12:35 Color BF) PM) [facility]2020-01-23 18:35:00 Test Item Value Reference Range Interpretation Comments Clarity BF (test code = Slight Cloudy (10/31/19 Clarity BF) 12:35 PM) [facility]2020-01-23 18:35:00 Test Item Value Reference Range Interpretation Comments Nucleated Cells BF (test code = 557 Nucleated Cells BF) [facility]2020-01-23 18:35:00 Test Item Value Reference Range Interpretation Comments RBC BF (test code = RBC BF) 0 [facility]2020-01-23 18:35:00 Test Item Value Reference Range Interpretation Comments Neutrophils BF (test code = Neutrophils 35 BF) [facility]2020-01-23 18:35:00 Test Item Value Reference Range Interpretation Comments Lymph BF (test code = Lymph BF) 21 [facility]2020-01-23 18:35:00 Test Item Value Reference Range Interpretation Comments Macrophage BF (test code = Macrophage 43 BF) [facility]2020-01-23 18:35:00 Test Item Value Reference Range Interpretation Comments Eos BF (test code = Eos BF) 1 [facility]2020-01-23 18:35:00 Test Item Value Reference Range Interpretation Comments CellCnt BF Type (test Periton (10/31/19 12:35 code = CellCnt BF Type) PM) [facility] CenterGram Stain Ssoneg8740-50-61 18:35:00 Test Item Value Reference Range Interpretation Comments Gram Stain Report Rare WBC's No Organisms (test code = Gram Seen Stain Report) [facility] CenterCulture: Aspirate/Body Fluid/Bmjytj0530-71-49 18:35:00 Test Item Value Reference Range Interpretation Comments Culture: Aspirate/Body Fluid/Tissue No Growth (test code = Culture: Aspirate/Body Fluid/Tissue) [facility]2020-01-23 10:35:00 Test Item Value Reference Range Interpretation Comments Phosphorus (test code = Phosphorus) 4.3 2.5-4.5 [facility] [id number] 10:35:00 Test Item Value Reference Range Interpretation Comments Magnesium Lvl (test code = Magnesium 2.0 1.8-2.4 Lvl) [facility] CenterTiswydvHGAQMSZFPC3630-45-66 10:35:00 Test Item Value Reference Range Interpretation Comments WBC (test code = WBC) 6.3 3.7-10.4 [facility] CenterJfrgrmgWHNTKZQIXD6707-17-91 10:35:00 Test Item Value Reference Range Interpretation Comments RBC (test code = RBC) 2.76 4.70-6.10 [facility] CenterDktutllHHMJGPJKIL5915-93-97 10:35:00 Test Item Value Reference Range Interpretation Comments Hgb (test code = Hgb) 8.1 14.0-18.0 [facility] CenterRvzpicyTPCNVYONNB4248-99-85 10:35:00 Test Item Value Reference Range Interpretation Comments Hct (test code = Hct) 23.5 42.0-54.0 [facility] CenterVtcssxlMSLSXHOTTJ5382-08-27 10:35:00 Test Item Value Reference Range Interpretation Comments MCV (test code = MCV) 85.2 80.0-94.0 [facility] CenterKesskmyLPTYGYTHDG8495-53-17 10:35:00 Test Item Value Reference Range Interpretation Comments MCH (test code = MCH) 29.2 pg 27.0-31.0 [facility] CenterKukvlreKUIKQWFDMQ3332-54-12 10:35:00 Test Item Value Reference Range Interpretation Comments MCHC (test code = MCHC) 34.3 32.0-36.0 [facility] CenterEoxlkxbEOOTECCEZV4525-17-57 10:35:00 Test Item Value Reference Range Interpretation Comments RDW (test code = RDW) 14.5 11.5-14.5 [facility] CenterNraqcpbIVRLYHWYIE3527-92-90 10:35:00 Test Item Value Reference Range Interpretation Comments Platelet (test code = Platelet) 188 133-450 [facility]GfqbttmKMNVRBWLPE7560-03-82 10:35:00 Test Item Value Reference Range Interpretation Comments MPV (test code = MPV) 7.0 7.4-10.4 [facility] CenterCdrpflaMKZHFKSXIV7999-01-32 10:35:00 Test Item Value Reference Range Interpretation Comments Segs (test code = Segs) 77.7 45.0-75.0 [facility] CenterWipqvosZHNEOLESHC2519-42-55 10:35:00 Test Item Value Reference Range Interpretation Comments Lymphocytes (test code = Lymphocytes) 10.2 20.0-40.0 [place] 031030-01-23 10:35:00 Test Item Value Reference Range Interpretation Comments Monocytes (test code = Monocytes) 10.0 2.0-12.0 [facility] CenterXgqoqyjXSZADMPEJJ1064-98-83 10:35:00 Test Item Value Reference Range Interpretation Comments Eosinophils (test code = 1.7 See_Comment [A utomated message] The Eosinophils) system which ge nerated this result tra nsmitted reference range : <=4.0. The reference r yared was not used to int erpret this result as normal/abnormal . [facility] CenterHskcvnbUEXKSOBGEY6334-19-29 10:35:00 Test Item Value Reference Range Interpretation Comments Basophils (test code = 0.4 See_Comment [Aut omated message] The Basophils) system which ge nerated this result tra nsmitted reference range : <=1.0. The reference r yared was not used to int erpret this result as normal/abnormal . [facility] CenterBlubnftHBKGTBLIHC2577-77-61 10:35:00 Test Item Value Reference Range Interpretation Comments Neutrophils # (test code = Neutrophils 4.9 1.5-8.1 #) [facility] CenterYvuzjjsHFEVHCJUKJ4680-20-34 10:35:00 Test Item Value Reference Range Interpretation Comments Lymphocytes # (test code = Lymphocytes 0.6 1.0-5.5 #) [place] 031030-01-23 10:35:00 Test Item Value Reference Range Interpretation Comments Monocytes # (test code 0.6 See_Comment [Aut omated message] The = Monocytes #) system which generated this result tra nsmitted reference range : <=0.8. The reference r yared was not used to int erpret this result as normal/abnormal . [facility] CenterCqmuioxZDUGIFOFXN5495-00-00 10:35:00 Test Item Value Reference Range Interpretation Comments Eosinophils # (test code 0.1 See_Comment [A utomated message] The = Eosinophils #) system whic h generated this result tra nsmitted reference range : <=0.5. The reference r yared was not used to int erpret this result as normal/abnormal . [facility] [id number] 10:35:00 Test Item Value Reference Range Interpretation Comments Phosphorus (test code = Phosphorus) 4.3 2.5-4.5 [facility] [id number] 10:35:00 Test Item Value Reference Range Interpretation Comments Magnesium Lvl (test code = Magnesium 2.0 1.8-2.4 Lvl) [facility] CenterWdfuvhzFCKEGWUDYO9142-48-45 10:35:00 Test Item Value Reference Range Interpretation Comments WBC (test code = WBC) 6.3 3.7-10.4 [facility] CenterCbarblsVCEKHWAAJP3018-26-78 10:35:00 Test Item Value Reference Range Interpretation Comments RBC (test code = RBC) 2.76 4.70-6.10 [facility] CenterTvbrolbETOTIRIPIT2001-53-34 10:35:00 Test Item Value Reference Range Interpretation Comments Hgb (test code = Hgb) 8.1 14.0-18.0 [facility] CenterPkxlhuqJPVMWBNDOO1209-82-44 10:35:00 Test Item Value Reference Range Interpretation Comments Hct (test code = Hct) 23.5 42.0-54.0 [facility] CenterLuzaryoONMVCZOHQU9445-46-48 10:35:00 Test Item Value Reference Range Interpretation Comments MCV (test code = MCV) 85.2 80.0-94.0 [facility] CenterKgcfuvdEGUPFFMUAF8504-31-60 10:35:00 Test Item Value Reference Range Interpretation Comments MCH (test code = MCH) 29.2 pg 27.0-31.0 [facility] CenterVkzmqpbLCVGLSRUXQ8874-66-46 10:35:00 Test Item Value Reference Range Interpretation Comments MCHC (test code = MCHC) 34.3 32.0-36.0 [facility] CenterNujjjyhMFLCKYPJGP8436-65-58 10:35:00 Test Item Value Reference Range Interpretation Comments RDW (test code = RDW) 14.5 11.5-14.5 [facility] CenterNkmunqwTHEEWPSSJY7254-40-69 10:35:00 Test Item Value Reference Range Interpretation Comments Platelet (test code = Platelet) 188 133-450 [facility] CenterUoodhuyMDKDTYJULV4599-64-33 10:35:00 Test Item Value Reference Range Interpretation Comments MPV (test code = MPV) 7.0 7.4-10.4 [place] 031030-01-23 10:35:00 Test Item Value Reference Range Interpretation Comments Segs (test code = Segs) 77.7 45.0-75.0 [facility] CenterWmggpmoQPBHJKPKWR0639-99-91 10:35:00 Test Item Value Reference Range Interpretation Comments Lymphocytes (test code = Lymphocytes) 10.2 20.0-40.0 [place] 031030-01-23 10:35:00 Test Item Value Reference Range Interpretation Comments Monocytes (test code = Monocytes) 10.0 2.0-12.0 [place] 031030-01-23 10:35:00 Test Item Value Reference Range Interpretation Comments Eosinophils (test code = 1.7 See_Comment [A utomated message] The Eosinophils) system which ge nerated this result tra nsmitted reference range : <=4.0. The reference r yared was not used to int erpret this result as normal/abnormal . [facility] CenterDutjfzeKXFWEMJRPS0424-85-65 10:35:00 Test Item Value Reference Range Interpretation Comments Basophils (test code = 0.4 See_Comment [Aut omated message] The Basophils) system which ge nerated this result tra nsmitted reference range : <=1.0. The reference r yared was not used to int erpret this result as normal/abnormal . [facility] CenterJsaaxtrRLYGLJOEKX3162-12-16 10:35:00 Test Item Value Reference Range Interpretation Comments Neutrophils # (test code = Neutrophils 4.9 1.5-8.1 #) [place] 031030-01-23 10:35:00 Test Item Value Reference Range Interpretation Comments Lymphocytes # (test code = Lymphocytes 0.6 1.0-5.5 #) [place] 031030-01-23 10:35:00 Test Item Value Reference Range Interpretation Comments Monocytes # (test code 0.6 See_Comment [Aut omated message] The = Monocytes #) system which generated this result tra nsmitted reference range : <=0.8. The reference r yared was not used to int erpret this result as normal/abnormal . [place] 031030-01-23 10:35:00 Test Item Value Reference Range Interpretation Comments Eosinophils # (test code 0.1 See_Comment [A utomated message] The = Eosinophils #) system whic h generated this result tra nsmitted reference range : <=0.5. The reference r yared was not used to int erpret this result as normal/abnormal . [facility] [id number] 19:34:00 Test Item Value Reference Range Interpretation Comments Source Respiratory Nasophrngl Swb Panel PCR (test code = *NA*(10/30/19 1:34 PM) Source Respiratory Panel PCR) [facility] [id number] 19:34:00 Test Item Value Reference Range Interpretation Comments Influenza A PCR (test Negative *NA*(10/30/19 code = Influenza A PCR) 1:34 PM) [facility] [id number] 19:34:00 Test Item Value Reference Range Interpretation Comments Influenza B PCR (test Negative *NA*(10/30/19 code = Influenza B PCR) 1:34 PM) [facility] [id number] 19:34:00 Test Item Value Reference Range Interpretation Comments RSV PCR (test code = Positive *ABN*(10/30/19 RSV PCR) 1:34 PM) [facility] [id number] 19:34:00 Test Item Value Reference Range Interpretation Comments Source Respiratory Nasophrngl Swb Panel PCR (test code = *NA*(10/30/19 1:34 PM) Source Respiratory Panel PCR) [facility] [id number] 19:34:00 Test Item Value Reference Range Interpretation Comments Influenza A PCR (test Negative *NA*(10/30/19 code = Influenza A PCR) 1:34 PM) [facility] [id number] 19:34:00 Test Item Value Reference Range Interpretation Comments Influenza B PCR (test Negative *NA*(10/30/19 code = Influenza B PCR) 1:34 PM) [facility] [id number] 19:34:00 Test Item Value Reference Range Interpretation Comments RSV PCR (test code = Positive *ABN*(10/30/19 RSV PCR) 1:34 PM) [facility]:ISOLATE:ORDQN:[id number] 18:00:00 Test Item Value Reference Range Interpretation Comments Gram Stain Report Few WBC's No Organisms (test code = Gram Seen Stain Report) [facility]:PT:ISOLATE:ORDQN:[id number] 18:00:00 Test Item Value Reference Range Interpretation Comments Culture: Few Pseudomonas putida Aspirate/Body Growth In Subculture Broth Fluid/Tissue (test Only Enterococcus Species code = Culture: Aspirate/Body Fluid/Tissue) [facility]:PT:ISOLATE:ORDQN:[id number] 18:00:00 Test Item Value Reference Range Interpretation Comments Enterococcus Species Enterococcus Species (test code = Enterococcus Species) [facility]:PT:ISOLATE:ORDQN:[id number] 18:00:00 Test Item Value Reference Range Interpretation Comments Pseudomonas putida (test Pseudomonas putida code = Pseudomonas putida) [facility]:PT:ISOLATE:ORDQN:[id number] 18:00:00 Test Item Value Reference Range Interpretation Comments Gram Stain Report Few WBC's No Organisms (test code = Gram Seen Stain Report) [facility]:PT:ISOLATE:ORDQN:[id number] 18:00:00 Test Item Value Reference Range Interpretation Comments Culture: Few Pseudomonas putida Aspirate/Body Growth In Subculture Broth Fluid/Tissue (test Only Enterococcus Species code = Culture: Aspirate/Body Fluid/Tissue) [facility]:PT:ISOLATE:ORDQN:[id number] 18:00:00 Test Item Value Reference Range Interpretation Comments Enterococcus Species Enterococcus Species (test code = Enterococcus Species) [facility]:PT:ISOLATE:ORDQN:[id number] 18:00:00 Test Item Value Reference Range Interpretation Comments Pseudomonas putida (test Pseudomonas putida code = Pseudomonas putida) [facility] [id number] 17:21:00 Test Item Value Reference Range Interpretation Comments Lactic Acid Lvl (test code = Lactic 0.6 0.5-2.2 Acid Lvl) [facility] [id number] 17:21:00 Test Item Value Reference Range Interpretation Comments Lactic Acid Lvl (test code = Lactic 0.6 0.5-2.2 Acid Lvl) [facility]2020-01-22 10:56:00 Test Item Value Reference Range Interpretation Comments Magnesium Lvl (test code = Magnesium 2.1 1.8-2.4 Lvl) [facility]2020-01-22 10:56:00 Test Item Value Reference Range Interpretation Comments Phosphorus (test code = Phosphorus) 4.5 2.5-4.5 [facility] CenterJqvhvyqQGDRHOHRMJ3014-27-87 10:56:00 Test Item Value Reference Range Interpretation Comments WBC (test code = WBC) 6.7 3.7-10.4 [place] 031030-01-22 10:56:00 Test Item Value Reference Range Interpretation Comments RBC (test code = RBC) 2.47 4.70-6.10 [place] 031030-01-22 10:56:00 Test Item Value Reference Range Interpretation Comments Hgb (test code = Hgb) 7.2 14.0-18.0 [place] 031030-01-22 10:56:00 Test Item Value Reference Range Interpretation Comments Hct (test code = Hct) 21.1 42.0-54.0 [place] 031030-01-22 10:56:00 Test Item Value Reference Range Interpretation Comments MCV (test code = MCV) 85.2 80.0-94.0 [place] 031030-01-22 10:56:00 Test Item Value Reference Range Interpretation Comments MCH (test code = MCH) 28.9 pg 27.0-31.0 [facility] CenterCdgknnkECNHEFKKMM2335-91-39 10:56:00 Test Item Value Reference Range Interpretation Comments MCHC (test code = MCHC) 34.0 32.0-36.0 [place] 031030-01-22 10:56:00 Test Item Value Reference Range Interpretation Comments RDW (test code = RDW) 14.6 11.5-14.5 [place] 031030-01-22 10:56:00 Test Item Value Reference Range Interpretation Comments Platelet (test code = Platelet) 171 133-450 [facility] CenterIenbpkcUVFGVZNFVE3657-77-55 10:56:00 Test Item Value Reference Range Interpretation Comments MPV (test code = MPV) 7.2 7.4-10.4 [facility] CenterAwiwwmbZGBWJSUVMC6070-87-29 10:56:00 Test Item Value Reference Range Interpretation Comments Segs (test code = Segs) 87.8 45.0-75.0 [facility] CenterMpyeyfeGWVGGIAGLC4888-66-12 10:56:00 Test Item Value Reference Range Interpretation Comments Lymphocytes (test code = Lymphocytes) 3.9 20.0-40.0 [place] 031030-01-22 10:56:00 Test Item Value Reference Range Interpretation Comments Monocytes (test code = Monocytes) 6.8 2.0-12.0 [facility] CenterWafbhvpFAUQDELYEZ2511-10-64 10:56:00 Test Item Value Reference Range Interpretation Comments Eosinophils (test code = 1.1 See_Comment [A utomated message] The Eosinophils) system which ge nerated this result tra nsmitted reference range : <=4.0. The reference r yared was not used to int erpret this result as normal/abnormal . [place] 031030-01-22 10:56:00 Test Item Value Reference Range Interpretation Comments Basophils (test code = 0.4 See_Comment [Aut omated message] The Basophils) system which ge nerated this result tra nsmitted reference range : <=1.0. The reference r yared was not used to int erpret this result as normal/abnormal . [facility] CenterWhxvlrbSYOYASLPXR1246-64-96 10:56:00 Test Item Value Reference Range Interpretation Comments Neutrophils # (test code = Neutrophils 5.9 1.5-8.1 #) [place] 031030-01-22 10:56:00 Test Item Value Reference Range Interpretation Comments Lymphocytes # (test code = Lymphocytes 0.3 1.0-5.5 #) [place] 031030-01-22 10:56:00 Test Item Value Reference Range Interpretation Comments Monocytes # (test code 0.5 See_Comment [Aut omated message] The = Monocytes #) system which generated this result tra nsmitted reference range : <=0.8. The reference r yared was not used to int erpret this result as normal/abnormal . [facility] CenterGnxsupkDVKHBUIENY9739-63-72 10:56:00 Test Item Value Reference Range Interpretation Comments Eosinophils # (test code 0.1 See_Comment [A utomated message] The = Eosinophils #) system whic h generated this result tra nsmitted reference range : <=0.5. The reference r yared was not used to int erpret this result as normal/abnormal . [facility]2020-01-22 10:56:00 Test Item Value Reference Range Interpretation Comments Magnesium Lvl (test code = Magnesium 2.1 1.8-2.4 Lvl) [facility]2020-01-22 10:56:00 Test Item Value Reference Range Interpretation Comments Phosphorus (test code = Phosphorus) 4.5 2.5-4.5 [facility] CenterXhuuwzbWLUBKNGQPT3385-92-31 10:56:00 Test Item Value Reference Range Interpretation Comments WBC (test code = WBC) 6.7 3.7-10.4 [facility] CenterYdifmrbKOGZVWUFIE8764-09-66 10:56:00 Test Item Value Reference Range Interpretation Comments RBC (test code = RBC) 2.47 4.70-6.10 [facility] CenterMinrgkaWDREFWCVPK4514-45-82 10:56:00 Test Item Value Reference Range Interpretation Comments Hgb (test code = Hgb) 7.2 14.0-18.0 [facility] CenterLpjvgkfITKWVFKSQF7568-40-81 10:56:00 Test Item Value Reference Range Interpretation Comments Hct (test code = Hct) 21.1 42.0-54.0 [facility] CenterFmlvgncJOHGEJVIOT0748-00-34 10:56:00 Test Item Value Reference Range Interpretation Comments MCV (test code = MCV) 85.2 80.0-94.0 [place] 031030-01-22 10:56:00 Test Item Value Reference Range Interpretation Comments MCH (test code = MCH) 28.9 pg 27.0-31.0 [facility] CenterYymmjebKMAYCYZINX6343-42-23 10:56:00 Test Item Value Reference Range Interpretation Comments MCHC (test code = MCHC) 34.0 32.0-36.0 [facility] CenterIavaijvBUDNPLYLGQ6514-47-07 10:56:00 Test Item Value Reference Range Interpretation Comments RDW (test code = RDW) 14.6 11.5-14.5 [facility] CenterFyoocdnJPHSUXRGRF5132-06-96 10:56:00 Test Item Value Reference Range Interpretation Comments Platelet (test code = Platelet) 171 133-450 [facility] CenterWsksfngHIXDVKYCTR0518-75-84 10:56:00 Test Item Value Reference Range Interpretation Comments MPV (test code = MPV) 7.2 7.4-10.4 [facility] CenterHngvjuoKBJKOFUGYN0189-98-44 10:56:00 Test Item Value Reference Range Interpretation Comments Segs (test code = Segs) 87.8 45.0-75.0 [facility] CenterEcnhyfcYTLEDGVSTB8984-90-24 10:56:00 Test Item Value Reference Range Interpretation Comments Lymphocytes (test code = Lymphocytes) 3.9 20.0-40.0 [place] 031030-01-22 10:56:00 Test Item Value Reference Range Interpretation Comments Monocytes (test code = Monocytes) 6.8 2.0-12.0 [place] 031030-01-22 10:56:00 Test Item Value Reference Range Interpretation Comments Eosinophils (test code = 1.1 See_Comment [A utomated message] The Eosinophils) system which ge nerated this result tra nsmitted reference range : <=4.0. The reference r yared was not used to int erpret this result as normal/abnormal . [facility] CenterFflyfqnLBTLMLVHGV9599-82-43 10:56:00 Test Item Value Reference Range Interpretation Comments Basophils (test code = 0.4 See_Comment [Aut omated message] The Basophils) system which ge nerated this result tra nsmitted reference range : <=1.0. The reference r yared was not used to int erpret this result as normal/abnormal . [facility] CenterLdvkbcsQSGQMEEFQD2782-61-92 10:56:00 Test Item Value Reference Range Interpretation Comments Neutrophils # (test code = Neutrophils 5.9 1.5-8.1 #) [facility] CenterMudbfpeBSUYDEXUEM8479-77-41 10:56:00 Test Item Value Reference Range Interpretation Comments Lymphocytes # (test code = Lymphocytes 0.3 1.0-5.5 #) [place] 031030-01-22 10:56:00 Test Item Value Reference Range Interpretation Comments Monocytes # (test code 0.5 See_Comment [Aut omated message] The = Monocytes #) system which generated this result tra nsmitted reference range : <=0.8. The reference r yared was not used to int erpret this result as normal/abnormal . [place] 031030-01-22 10:56:00 Test Item Value Reference Range Interpretation Comments Eosinophils # (test code 0.1 See_Comment [A utomated message] The = Eosinophils #) system whic h generated this result tra nsmitted reference range : <=0.5. The reference r yared was not used to int erpret this result as normal/abnormal . [facility] [id number] 22:52:00 Test Item Value Reference Range Interpretation Comments Magnesium Lvl (test code = Magnesium 2.2 1.8-2.4 Lvl) [facility] CenterD[facility] [id number] 22:52:00 Test Item Value Reference Range Interpretation Comments Phosphorus (test code = Phosphorus) 5.8 2.5-4.5 [facility] [id number] 22:52:00 Test Item Value Reference Range Interpretation Comments Magnesium Lvl (test code = Magnesium 2.2 1.8-2.4 Lvl) [facility] CenterD[facility] [id number] 22:52:00 Test Item Value Reference Range Interpretation Comments Phosphorus (test code = Phosphorus) 5.8 2.5-4.5 [facility] CenterRet[facility] Education [id number] 10:47:00 Test Item Value Reference Range Interpretation Comments Troponin-I (test code 0.02 See_Comment [Auto mated message] The = Troponin-I) system which g enerated this result transmit emerson reference range : <=0.40. The reference r yared was not used to interpr et this result as erinn l/abnormal. [facility] CenterrelocalityJIMBGXS2755-25-07 10:47:00 Test Item Value Reference Range Interpretation Comments Troponin-I (test code 0.02 See_Comment [Auto mated message] The = Troponin-I) system which g enerated this result transmit emerson reference range : <=0.40. The reference r yared was not used to interpr et this result as erinn l/abnormal. [facility] [id number] 07:19:00 Test Item Value Reference Range Interpretation Comments Troponin-I (test code 0.02 See_Comment [Auto mated message] The = Troponin-I) system which g enerated this result transmit emerson reference range : <=0.40. The reference r yared was not used to interpr et this result as erinn l/abnormal. [facility] CenterrelocalityCGSWTNC0982-09-51 07:19:00 Test Item Value Reference Range Interpretation Comments Troponin-I (test code 0.02 See_Comment [Auto mated message] The = Troponin-I) system which g enerated this result transmit emerson reference range : <=0.40. The reference r yared was not used to interpr et this result as erinn l/abnormal. [facility] [employer] [facility] [id number] 03:06:00 Test Item Value Reference Range Interpretation Comments Troponin-I (test code no gt See_Comment [Auto mated message] The = Troponin-I) system which g enerated this result transmit emerson reference range : <=0.40. The reference r yared was not used to interpr et this result as erinn l/abnormal. [facility] [employer] [id number] 03:06:00 Test Item Value Reference Range Interpretation Comments Total Protein (test code = Total 5.5 6.4-8.4 Protein) [facility] [employer] [id number] 03:06:00 Test Item Value Reference Range Interpretation Comments Albumin Lvl (test code = Albumin Lvl) 2.3 3.5-5.0 [facility] [employer] [id number] 03:06:00 Test Item Value Reference Range Interpretation Comments ALT (test code = ALT) 22 See_Comment [Auto mated message] The system which ge nerated this result transmit emerson reference range : <=65. The reference range was not used to interpr et this result as erinn l/abnormal. [facility] [employer] [id number] 03:06:00 Test Item Value Reference Range Interpretation Comments AST (test code = AST) 50 See_Comment [Auto mated message] The system which ge nerated this result transmit emerson reference range : <=37. The reference range was not used to interpr et this result as erinn l/abnormal. [facility] [employer] [id number] 03:06:00 Test Item Value Reference Range Interpretation Comments Alk Phos (test code = Alk Phos) 68 39-136 [facility] [employer] [id number] 03:06:00 Test Item Value Reference Range Interpretation Comments Bili Total (test code = Bili Total) 0.6 0.2-1.3 [facility] [employer] [id number] 03:06:00 Test Item Value Reference Range Interpretation Comments B/C Ratio (test code = B/C Ratio) 5 1 6-25 [facility] [id number] 03:06:00 Test Item Value Reference Range Interpretation Comments Globulin (test code = Globulin) 3.2 2.7-4.2 [facility] [id number] 03:06:00 Test Item Value Reference Range Interpretation Comments A/G Ratio (test code = A/G Ratio) 0.7 1 0.7-1.6 [facility]OB[facility] 03:06:00 Test Item Value Reference Range Interpretation Comments Plt Morph (test code = Normal (10/28/19 9:06 Plt Morph) PM) [facility]JmapmfqYGPDWCNJDU8413-70-00 03:06:00 Test Item Value Reference Range Interpretation Comments Basophils # (test code 0.1 See_Comment [Aut omated message] The = Basophils #) system which generated this result tra nsmitted reference range : <=0.2. The reference r yared was not used to int erpret this result as normal/abnormal . [facility] CenterCARDIAC [id number] 03:06:00 Test Item Value Reference Range Interpretation Comments Troponin-I (test code no gt See_Comment [Auto mated message] The = Troponin-I) system which g enerated this result transmit emerson reference range : <=0.40. The reference r yared was not used to interpr et this result as erinn l/abnormal. [facility] CenterD[facility] [id number] 03:06:00 Test Item Value Reference Range Interpretation Comments Total Protein (test code = Total 5.5 6.4-8.4 Protein) [facility]2020-01-21 03:06:00 Test Item Value Reference Range Interpretation Comments Albumin Lvl (test code = Albumin Lvl) 2.3 3.5-5.0 [facility] CenterD[facility] [id number] 03:06:00 Test Item Value Reference Range Interpretation Comments ALT (test code = ALT) 22 See_Comment [Auto mated message] The system which ge nerated this result transmit emerson reference range : <=65. The reference range was not used to interpr et this result as erinn l/abnormal. [facility] [facility] CenterD[facility] [id number] 03:06:00 Test Item Value Reference Range Interpretation Comments AST (test code = AST) 50 See_Comment [Auto mated message] The system which ge nerated this result transmit emerson reference range : <=37. The reference range was not used to interpr et this result as erinn l/abnormal. [facility]2020-01-21 03:06:00 Test Item Value Reference Range Interpretation Comments Alk Phos (test code = Alk Phos) 68 39-136 [facility]2020-01-21 03:06:00 Test Item Value Reference Range Interpretation Comments Bili Total (test code = Bili Total) 0.6 0.2-1.3 [facility]2020-01-21 03:06:00 Test Item Value Reference Range Interpretation Comments B/C Ratio (test code = B/C Ratio) 5 1 6-25 [facility]2020-01-21 03:06:00 Test Item Value Reference Range Interpretation Comments Globulin (test code = Globulin) 3.2 2.7-4.2 [facility]2020-01-21 03:06:00 Test Item Value Reference Range Interpretation Comments A/G Ratio (test code = A/G Ratio) 0.7 1 0.7-1.6 [facility]UghyedrAOCGJFMSLB8968-60-97 03:06:00 Test Item Value Reference Range Interpretation Comments Plt Morph (test code = Normal (10/28/19 9:06 Plt Morph) PM) [facility] CenterItcfsweVTPRJDYOMK1069-24-02 03:06:00 Test Item Value Reference Range Interpretation Comments Basophils # (test code 0.1 See_Comment [Aut omated message] The = Basophils #) system which generated this result tra nsmitted reference range : <=0.2. The reference r yared was not used to int erpret this result as normal/abnormal . [facility]2019-11-12 10:56:00 Test Item Value Reference Range Interpretation Comments Glucose Lvl (test code = Glucose Lvl) 93 70-99 [facility]2019-11-12 10:56:00 Test Item Value Reference Range Interpretation Comments BUN (test code = BUN) 26 7-22 [facility]2019-11-12 10:56:00 Test Item Value Reference Range Interpretation Comments Creatinine Lvl (test code = Creatinine 7.85 0.50-1.40 Lvl) [facility]2019-11-12 10:56:00 Test Item Value Reference Range Interpretation Comments Sodium Lvl (test code = Sodium Lvl) 140 135-145 [facility]2019-11-12 10:56:00 Test Item Value Reference Range Interpretation Comments Potassium Lvl (test code = Potassium 3.7 3.5-5.1 Lvl) [facility]2019-11-12 10:56:00 Test Item Value Reference Range Interpretation Comments Chloride Lvl (test code = Chloride Lvl) 104 95-109 [facility]2019-11-12 10:56:00 Test Item Value Reference Range Interpretation Comments CO2 (test code = CO2) 25 24-32 [facility]2019-11-12 10:56:00 Test Item Value Reference Range Interpretation Comments Calcium Lvl (test code = Calcium Lvl) 9.2 8.5-10.5 [facility]2019-11-12 10:56:00 Test Item Value Reference Range Interpretation Comments eGFR (test code = eGFR) 7 [facility]2019-11-12 10:56:00 Test Item Value Reference Range Interpretation Comments AGAP (test code = AGAP) 14.7 10.0-20.0 [facility] CenterDxqfgrvHLVQXNYFHE9117-00-33 10:56:00 Test Item Value Reference Range Interpretation Comments WBC (test code = WBC) 8.6 3.7-10.4 [facility] CenterKsmjbouNDFPUHQOVL3801-48-58 10:56:00 Test Item Value Reference Range Interpretation Comments RBC (test code = RBC) 3.37 4.70-6.10 [facility] CenterWpalerfLIBRVMEQQG0595-24-25 10:56:00 Test Item Value Reference Range Interpretation Comments Hgb (test code = Hgb) 10.2 14.0-18.0 [facility] CenterGjtcwsdRGCUEVKUJJ5033-28-72 10:56:00 Test Item Value Reference Range Interpretation Comments Hct (test code = Hct) 29.9 42.0-54.0 [facility] CenterLizytrkADRZWVTXZV1417-53-70 10:56:00 Test Item Value Reference Range Interpretation Comments MCV (test code = MCV) 88.7 80.0-94.0 [facility] CenterIzgaiafAMHOODTHTN9495-23-03 10:56:00 Test Item Value Reference Range Interpretation Comments MCH (test code = MCH) 30.1 pg 27.0-31.0 [facility] CenterFlubpmbSLTJVBUKJD3970-84-49 10:56:00 Test Item Value Reference Range Interpretation Comments MCHC (test code = MCHC) 33.9 32.0-36.0 [facility] CenterHjpxmgrNPPGNYYJPS4992-89-23 10:56:00 Test Item Value Reference Range Interpretation Comments RDW (test code = RDW) 13.7 11.5-14.5 [facility] CenterOfrxugmGKRNRKVZNG7858-92-37 10:56:00 Test Item Value Reference Range Interpretation Comments Platelet (test code = Platelet) 294 133-450 [facility] CenterGfihdpyCGKIOUSSLJ6250-70-44 10:56:00 Test Item Value Reference Range Interpretation Comments MPV (test code = MPV) 6.7 7.4-10.4 [facility] CenterIuxesjxNSKTKGDKZG3471-30-60 10:56:00 Test Item Value Reference Range Interpretation Comments Segs (test code = Segs) 79.5 45.0-75.0 [facility] CenterXlfoledGOARDDAFVB3207-01-80 10:56:00 Test Item Value Reference Range Interpretation Comments Lymphocytes (test code = Lymphocytes) 12.8 20.0-40.0 [facility] CenterXozhzmpOLLSCFZZFP3286-05-69 10:56:00 Test Item Value Reference Range Interpretation Comments Monocytes (test code = Monocytes) 6.3 2.0-12.0 [facility] CenterJhasqtdASDBDZIFZJ4993-86-79 10:56:00 Test Item Value Reference Range Interpretation Comments Eosinophils (test code = 0.6 See_Comment [A utomated message] The Eosinophils) system which ge nerated this result tra nsmitted reference range : <=4.0. The reference r yared was not used to int erpret this result as normal/abnormal . [facility] CenterTmbhxqmRPDEMBJLLF3199-21-27 10:56:00 Test Item Value Reference Range Interpretation Comments Basophils (test code = 0.8 See_Comment [Aut omated message] The Basophils) system which ge nerated this result tra nsmitted reference range : <=1.0. The reference r yared was not used to int erpret this result as normal/abnormal . [facility] CenterDszppvcZAEQQEJHAZ4993-51-78 10:56:00 Test Item Value Reference Range Interpretation Comments Neutrophils # (test code = Neutrophils 6.8 1.5-8.1 #) [facility] CenterLnohpviDWOIZNTIFB2281-72-56 10:56:00 Test Item Value Reference Range Interpretation Comments Lymphocytes # (test code = Lymphocytes 1.1 1.0-5.5 #) [facility] CenterWmyvlmwXBBNXNEEKZ5242-92-08 10:56:00 Test Item Value Reference Range Interpretation Comments Monocytes # (test code 0.5 See_Comment [Aut omated message] The = Monocytes #) system which generated this result tra nsmitted reference range : <=0.8. The reference r yared was not used to int erpret this result as normal/abnormal . [facility] CenterIawinfgVKWMZTVOPI3923-93-09 10:56:00 Test Item Value Reference Range Interpretation Comments Basophils # (test code 0.1 See_Comment [Aut omated message] The = Basophils #) system which generated this result tra nsmitted reference range : <=0.2. The reference r yared was not used to int erpret this result as normal/abnormal . [facility]2019-11-12 10:56:00 Test Item Value Reference Range Interpretation Comments Glucose Lvl (test code = Glucose Lvl) 93 70-99 [facility]2019-11-12 10:56:00 Test Item Value Reference Range Interpretation Comments BUN (test code = BUN) 26 7-22 [facility]2019-11-12 10:56:00 Test Item Value Reference Range Interpretation Comments Creatinine Lvl (test code = Creatinine 7.85 0.50-1.40 Lvl) [facility]2019-11-12 10:56:00 Test Item Value Reference Range Interpretation Comments Sodium Lvl (test code = Sodium Lvl) 140 135-145 [facility]2019-11-12 10:56:00 Test Item Value Reference Range Interpretation Comments Potassium Lvl (test code = Potassium 3.7 3.5-5.1 Lvl) [facility]2019-11-12 10:56:00 Test Item Value Reference Range Interpretation Comments Chloride Lvl (test code = Chloride Lvl) 104 95-109 [facility]2019-11-12 10:56:00 Test Item Value Reference Range Interpretation Comments CO2 (test code = CO2) 25 24-32 [facility]2019-11-12 10:56:00 Test Item Value Reference Range Interpretation Comments Calcium Lvl (test code = Calcium Lvl) 9.2 8.5-10.5 [facility]2019-11-12 10:56:00 Test Item Value Reference Range Interpretation Comments eGFR (test code = eGFR) 7 [facility] XKJFZ7376-17-92 10:56:00 Test Item Value Reference Range Interpretation Comments AGAP (test code = AGAP) 14.7 10.0-20.0 [facility] CenterLtueqrmOTEAJIDUDK3242-04-91 10:56:00 Test Item Value Reference Range Interpretation Comments WBC (test code = WBC) 8.6 3.7-10.4 [facility] CenterTxfybrqNJJYVPURSV5989-90-42 10:56:00 Test Item Value Reference Range Interpretation Comments RBC (test code = RBC) 3.37 4.70-6.10 [facility] CenterWilzvdhXNHBKHGKRO8759-18-23 10:56:00 Test Item Value Reference Range Interpretation Comments Hgb (test code = Hgb) 10.2 14.0-18.0 [facility] CenterEgdvvzbSPMGRAJLIT2865-13-29 10:56:00 Test Item Value Reference Range Interpretation Comments Hct (test code = Hct) 29.9 42.0-54.0 [facility] CenterUbdpromDTPKIRZOCJ8630-64-63 10:56:00 Test Item Value Reference Range Interpretation Comments MCV (test code = MCV) 88.7 80.0-94.0 [facility] CenterIoimtidKVADPZRHOR8749-30-03 10:56:00 Test Item Value Reference Range Interpretation Comments MCH (test code = MCH) 30.1 pg 27.0-31.0 [facility] CenterCcrdtqwYDRVBPSJYE0733-94-04 10:56:00 Test Item Value Reference Range Interpretation Comments MCHC (test code = MCHC) 33.9 32.0-36.0 [facility] CenterTsmuiyuIPGKFDATUB3224-43-15 10:56:00 Test Item Value Reference Range Interpretation Comments RDW (test code = RDW) 13.7 11.5-14.5 [facility] CenterEmgsodiHGWXIGMGBD5182-17-40 10:56:00 Test Item Value Reference Range Interpretation Comments Platelet (test code = Platelet) 294 133-450 [facility] CenterMolzlljXJYDTBEVUG1194-15-17 10:56:00 Test Item Value Reference Range Interpretation Comments MPV (test code = MPV) 6.7 7.4-10.4 [facility] CenterXogkxlsEIFNGOTWKR5554-91-56 10:56:00 Test Item Value Reference Range Interpretation Comments Segs (test code = Segs) 79.5 45.0-75.0 [facility] CenterStguqvvFIAFHAUYMS6050-03-86 10:56:00 Test Item Value Reference Range Interpretation Comments Lymphocytes (test code = Lymphocytes) 12.8 20.0-40.0 [facility] CenterCzuwjsxTWWROZKHAR7970-28-14 10:56:00 Test Item Value Reference Range Interpretation Comments Monocytes (test code = Monocytes) 6.3 2.0-12.0 [facility] CenterFjkvkjmKXUZTKCNEH7629-41-77 10:56:00 Test Item Value Reference Range Interpretation Comments Eosinophils (test code = 0.6 See_Comment [A utomated message] The Eosinophils) system which ge nerated this result tra nsmitted reference range : <=4.0. The reference r yared was not used to int erpret this result as normal/abnormal . [facility] CenterOrgvgcmLGUPGUNUJK3423-04-31 10:56:00 Test Item Value Reference Range Interpretation Comments Basophils (test code = 0.8 See_Comment [Aut omated message] The Basophils) system which ge nerated this result tra nsmitted reference range : <=1.0. The reference r yared was not used to int erpret this result as normal/abnormal . [facility] CenterFjbptnlWAYIGLMGQQ6412-05-22 10:56:00 Test Item Value Reference Range Interpretation Comments Neutrophils # (test code = Neutrophils 6.8 1.5-8.1 #) [facility] CenterKcdjkjfURKWKOXMUC4214-97-83 10:56:00 Test Item Value Reference Range Interpretation Comments Lymphocytes # (test code = Lymphocytes 1.1 1.0-5.5 #) [facility] CenterSzsxeelTZVMBICJVX4714-38-50 10:56:00 Test Item Value Reference Range Interpretation Comments Monocytes # (test code 0.5 See_Comment [Aut omated message] The = Monocytes #) system which generated this result tra nsmitted reference range : <=0.8. The reference r yared was not used to int erpret this result as normal/abnormal . [facility] CenterBbarhxvXGRDNDAZGN2189-35-96 10:56:00 Test Item Value Reference Range Interpretation Comments Basophils # (test code 0.1 See_Comment [Aut omated message] The = Basophils #) system which generated this result tra nsmitted reference range : <=0.2. The reference r yared was not used to int erpret this result as normal/abnormal . [facility]2019-11-11 10:14:00 Test Item Value Reference Range Interpretation Comments Glucose Lvl (test code = Glucose Lvl) 105 70-99 [facility]2019-11-11 10:14:00 Test Item Value Reference Range Interpretation Comments BUN (test code = BUN) 18 7-22 [facility]2019-11-11 10:14:00 Test Item Value Reference Range Interpretation Comments Creatinine Lvl (test code = Creatinine 7.09 0.50-1.40 Lvl) [facility]2019-11-11 10:14:00 Test Item Value Reference Range Interpretation Comments Sodium Lvl (test code = Sodium Lvl) 138 135-145 [facility]2019-11-11 10:14:00 Test Item Value Reference Range Interpretation Comments Potassium Lvl (test code = Potassium 3.6 3.5-5.1 Lvl) [facility]2019-11-11 10:14:00 Test Item Value Reference Range Interpretation Comments Chloride Lvl (test code = Chloride Lvl) 100 95-109 [facility]2019-11-11 10:14:00 Test Item Value Reference Range Interpretation Comments CO2 (test code = CO2) 28 24-32 [facility]2019-11-11 10:14:00 Test Item Value Reference Range Interpretation Comments AGAP (test code = AGAP) 13.6 10.0-20.0 [facility]2019-11-11 10:14:00 Test Item Value Reference Range Interpretation Comments Calcium Lvl (test code = Calcium Lvl) 9.5 8.5-10.5 [facility]2019-11-11 10:14:00 Test Item Value Reference Range Interpretation Comments eGFR (test code = eGFR) 8 [facility] CenterRrbcthbGPCBWQZEFJ8827-82-37 10:14:00 Test Item Value Reference Range Interpretation Comments WBC (test code = WBC) 7.7 3.7-10.4 [facility] CenterXmquoncJRMEBSUXOC1609-38-80 10:14:00 Test Item Value Reference Range Interpretation Comments RBC (test code = RBC) 3.61 4.70-6.10 [facility] CenterQrdlmghXFWPQTMWEE6140-55-76 10:14:00 Test Item Value Reference Range Interpretation Comments Hgb (test code = Hgb) 10.8 14.0-18.0 [facility] CenterEeorsjyONOVHWXBOG1690-40-07 10:14:00 Test Item Value Reference Range Interpretation Comments Hct (test code = Hct) 31.7 42.0-54.0 [facility] CenterUjfvbjlEIUTYXGJTB8546-08-45 10:14:00 Test Item Value Reference Range Interpretation Comments MCV (test code = MCV) 87.7 80.0-94.0 [facility] CenterYaisxwtQSMKDWWPFU7677-64-77 10:14:00 Test Item Value Reference Range Interpretation Comments MCH (test code = MCH) 30.0 pg 27.0-31.0 [facility] CenterExakkqiIECDSGEQXO1571-53-04 10:14:00 Test Item Value Reference Range Interpretation Comments MCHC (test code = MCHC) 34.2 32.0-36.0 [facility] CenterDsozivwKSGGMOMWCK9054-68-47 10:14:00 Test Item Value Reference Range Interpretation Comments RDW (test code = RDW) 14.0 11.5-14.5 [facility] CenterTdigzyoZCHYPRHHLZ2558-70-89 10:14:00 Test Item Value Reference Range Interpretation Comments Platelet (test code = Platelet) 292 133-450 [facility] CenterNipwblyXYHQWYGQKL8697-26-75 10:14:00 Test Item Value Reference Range Interpretation Comments MPV (test code = MPV) 7.0 7.4-10.4 [facility] CenterKdnwfrrWRPYTJJAPP2626-21-20 10:14:00 Test Item Value Reference Range Interpretation Comments Segs (test code = Segs) 75.0 45.0-75.0 [facility] CenterHisxjpwNIBJSSCGDG7591-40-49 10:14:00 Test Item Value Reference Range Interpretation Comments Lymphocytes (test code = Lymphocytes) 15.4 20.0-40.0 [facility] CenterVaipabyAPWZSEYNCH8431-93-39 10:14:00 Test Item Value Reference Range Interpretation Comments Monocytes (test code = Monocytes) 7.1 2.0-12.0 [facility] CenterVdzzujtNNMBQJBKDB4036-18-12 10:14:00 Test Item Value Reference Range Interpretation Comments Eosinophils (test code = 1.4 See_Comment [A utomated message] The Eosinophils) system which ge nerated this result tra nsmitted reference range : <=4.0. The reference r yared was not used to int erpret this result as normal/abnormal . [facility] CenterFordygnVGVEJZJTEE6331-77-44 10:14:00 Test Item Value Reference Range Interpretation Comments Basophils (test code = 1.1 See_Comment [Aut omated message] The Basophils) system which ge nerated this result tra nsmitted reference range : <=1.0. The reference r yared was not used to int erpret this result as normal/abnormal . [facility] CenterRsdnxmuOJDDJDYPHL5699-72-38 10:14:00 Test Item Value Reference Range Interpretation Comments Neutrophils # (test code = Neutrophils 5.8 1.5-8.1 #) [facility] CenterTwwncuoQDWKFRPYRU1113-17-39 10:14:00 Test Item Value Reference Range Interpretation Comments Lymphocytes # (test code = Lymphocytes 1.2 1.0-5.5 #) [facility] CenterJjpfuxvLJRKQTJKTS9234-07-27 10:14:00 Test Item Value Reference Range Interpretation Comments Monocytes # (test code 0.5 See_Comment [Aut omated message] The = Monocytes #) system which generated this result tra nsmitted reference range : <=0.8. The reference r yared was not used to int erpret this result as normal/abnormal . [facility] CenterZkzbexoDCILXBWGXE6298-42-23 10:14:00 Test Item Value Reference Range Interpretation Comments Eosinophils # (test code 0.1 See_Comment [A utomated message] The = Eosinophils #) system whic h generated this result tra nsmitted reference range : <=0.5. The reference r yared was not used to int erpret this result as normal/abnormal . [facility] CenterXvbbeumTZDCSXGHVK8120-19-75 10:14:00 Test Item Value Reference Range Interpretation Comments Basophils # (test code 0.1 See_Comment [Aut omated message] The = Basophils #) system which generated this result tra nsmitted reference range : <=0.2. The reference r yared was not used to int erpret this result as normal/abnormal . [facility]2019-11-11 10:14:00 Test Item Value Reference Range Interpretation Comments Glucose Lvl (test code = Glucose Lvl) 105 70-99 [facility]2019-11-11 10:14:00 Test Item Value Reference Range Interpretation Comments BUN (test code = BUN) 18 7-22 [facility]2019-11-11 10:14:00 Test Item Value Reference Range Interpretation Comments Creatinine Lvl (test code = Creatinine 7.09 0.50-1.40 Lvl) [facility]2019-11-11 10:14:00 Test Item Value Reference Range Interpretation Comments Sodium Lvl (test code = Sodium Lvl) 138 135-145 [facility]2019-11-11 10:14:00 Test Item Value Reference Range Interpretation Comments Potassium Lvl (test code = Potassium 3.6 3.5-5.1 Lvl) [facility]2019-11-11 10:14:00 Test Item Value Reference Range Interpretation Comments Chloride Lvl (test code = Chloride Lvl) 100 95-109 [facility]2019-11-11 10:14:00 Test Item Value Reference Range Interpretation Comments CO2 (test code = CO2) 28 24-32 [facility]2019-11-11 10:14:00 Test Item Value Reference Range Interpretation Comments AGAP (test code = AGAP) 13.6 10.0-20.0 [facility]2019-11-11 10:14:00 Test Item Value Reference Range Interpretation Comments Calcium Lvl (test code = Calcium Lvl) 9.5 8.5-10.5 [facility]2019-11-11 10:14:00 Test Item Value Reference Range Interpretation Comments eGFR (test code = eGFR) 8 [facility] CenterWplwomtBYLZLYUYIQ0639-83-04 10:14:00 Test Item Value Reference Range Interpretation Comments WBC (test code = WBC) 7.7 3.7-10.4 [facility] CenterNfbmvynVVHKSCFFHP8679-18-32 10:14:00 Test Item Value Reference Range Interpretation Comments RBC (test code = RBC) 3.61 4.70-6.10 [facility] CenterDzolvsdPITBOKHWWR4385-62-27 10:14:00 Test Item Value Reference Range Interpretation Comments Hgb (test code = Hgb) 10.8 14.0-18.0 [facility] CenterJfdsnxoFGEHPEHQNO4895-12-31 10:14:00 Test Item Value Reference Range Interpretation Comments Hct (test code = Hct) 31.7 42.0-54.0 [facility] CenterTwtzsxdSODTAZXPXA4674-41-63 10:14:00 Test Item Value Reference Range Interpretation Comments MCV (test code = MCV) 87.7 80.0-94.0 [facility] CenterQuglulcZHNAOANWKH1240-88-77 10:14:00 Test Item Value Reference Range Interpretation Comments MCH (test code = MCH) 30.0 pg 27.0-31.0 [facility] CenterWyoiasuRFAUECMTRE9883-63-98 10:14:00 Test Item Value Reference Range Interpretation Comments MCHC (test code = MCHC) 34.2 32.0-36.0 [facility] CenterQxgfvisOFNROPRNQN1461-25-05 10:14:00 Test Item Value Reference Range Interpretation Comments RDW (test code = RDW) 14.0 11.5-14.5 [facility] CenterSavhnflJJMWTRDLQJ9088-61-20 10:14:00 Test Item Value Reference Range Interpretation Comments Platelet (test code = Platelet) 292 133-450 [facility] CenterWhalkxfWDBOSYEMFL7641-54-28 10:14:00 Test Item Value Reference Range Interpretation Comments MPV (test code = MPV) 7.0 7.4-10.4 [facility] CenterEolseciBDXVOSQFNM3936-35-15 10:14:00 Test Item Value Reference Range Interpretation Comments Segs (test code = Segs) 75.0 45.0-75.0 [facility] CenterOsfwdhoXHOEQIPRWC0407-70-00 10:14:00 Test Item Value Reference Range Interpretation Comments Lymphocytes (test code = Lymphocytes) 15.4 20.0-40.0 [facility] CenterAotbrhyFAQFZDHHJM5875-46-95 10:14:00 Test Item Value Reference Range Interpretation Comments Monocytes (test code = Monocytes) 7.1 2.0-12.0 [facility] CenterLkpvaapIIFYVGQDOT6485-92-13 10:14:00 Test Item Value Reference Range Interpretation Comments Eosinophils (test code = 1.4 See_Comment [A utomated message] The Eosinophils) system which ge nerated this result tra nsmitted reference range : <=4.0. The reference r yared was not used to int erpret this result as normal/abnormal . [facility] CenterCvqnbvvIXOWFSQRQA3519-96-59 10:14:00 Test Item Value Reference Range Interpretation Comments Basophils (test code = 1.1 See_Comment [Aut omated message] The Basophils) system which ge nerated this result tra nsmitted reference range : <=1.0. The reference r yared was not used to int erpret this result as normal/abnormal . [facility] CenterJnznxfuCIXCHUEZRN5203-38-18 10:14:00 Test Item Value Reference Range Interpretation Comments Neutrophils # (test code = Neutrophils 5.8 1.5-8.1 #) [facility] CenterDjhzyfsSQKBQXEZSU6328-13-05 10:14:00 Test Item Value Reference Range Interpretation Comments Lymphocytes # (test code = Lymphocytes 1.2 1.0-5.5 #) [facility] CenterKilbstkXQHKQDVKTA3196-32-83 10:14:00 Test Item Value Reference Range Interpretation Comments Monocytes # (test code 0.5 See_Comment [Aut omated message] The = Monocytes #) system which generated this result tra nsmitted reference range : <=0.8. The reference r yared was not used to int erpret this result as normal/abnormal . [facility] CenterTeifljlZHMMKBRBSX8636-73-16 10:14:00 Test Item Value Reference Range Interpretation Comments Eosinophils # (test code 0.1 See_Comment [A utomated message] The = Eosinophils #) system whic h generated this result tra nsmitted reference range : <=0.5. The reference r yared was not used to int erpret this result as normal/abnormal . [facility] CenterZgbqfyzHMXXCLLREB9486-19-33 10:14:00 Test Item Value Reference Range Interpretation Comments Basophils # (test code 0.1 See_Comment [Aut omated message] The = Basophils #) system which generated this result tra nsmitted reference range : <=0.2. The reference r yared was not used to int erpret this result as normal/abnormal . [facility]2019-11-10 10:24:00 Test Item Value Reference Range Interpretation Comments Glucose Lvl (test code = Glucose Lvl) 106 70-99 [facility]2019-11-10 10:24:00 Test Item Value Reference Range Interpretation Comments BUN (test code = BUN) 34 7-22 [facility]2019-11-10 10:24:00 Test Item Value Reference Range Interpretation Comments Creatinine Lvl (test code = Creatinine 11.00 0.50-1.40 Lvl) [facility]2019-11-10 10:24:00 Test Item Value Reference Range Interpretation Comments Sodium Lvl (test code = Sodium Lvl) 139 135-145 [facility]2019-11-10 10:24:00 Test Item Value Reference Range Interpretation Comments Potassium Lvl (test code = Potassium 3.6 3.5-5.1 Lvl) [facility]2019-11-10 10:24:00 Test Item Value Reference Range Interpretation Comments Chloride Lvl (test code = Chloride Lvl) 103 95-109 [facility]2019-11-10 10:24:00 Test Item Value Reference Range Interpretation Comments CO2 (test code = CO2) 28 24-32 [facility]2019-11-10 10:24:00 Test Item Value Reference Range Interpretation Comments AGAP (test code = AGAP) 11.6 10.0-20.0 [facility]2019-11-10 10:24:00 Test Item Value Reference Range Interpretation Comments Calcium Lvl (test code = Calcium Lvl) 9.0 8.5-10.5 [facility]2019-11-10 10:24:00 Test Item Value Reference Range Interpretation Comments eGFR (test code = eGFR) 5 [facility]vs[facility]qqOUXRNRBUTH[facility]-87-[facility] 10:24:00 Test Item Value Reference Range Interpretation Comments WBC (test code = WBC) 6.9 3.7-10.4 [facility] CenterFjslbrwCFBKKVLIOY7347-95-89 10:24:00 Test Item Value Reference Range Interpretation Comments RBC (test code = RBC) 3.13 4.70-6.10 [facility] CenterMmfmfmkOLVZLYNBUI3770-98-40 10:24:00 Test Item Value Reference Range Interpretation Comments Hgb (test code = Hgb) 9.3 14.0-18.0 [facility] CenterGlojdnoEDRQWFRSCG3338-78-30 10:24:00 Test Item Value Reference Range Interpretation Comments Hct (test code = Hct) 27.4 42.0-54.0 [facility] CenterSrjsyogQUMRPMEOUL7425-52-18 10:24:00 Test Item Value Reference Range Interpretation Comments MCV (test code = MCV) 87.7 80.0-94.0 [facility] CenterTiwvnjkYCQUXADUCL9381-58-01 10:24:00 Test Item Value Reference Range Interpretation Comments MCH (test code = MCH) 29.6 pg 27.0-31.0 [facility] CenterIbwqsrtLTWDDJQFOY4078-13-29 10:24:00 Test Item Value Reference Range Interpretation Comments MCHC (test code = MCHC) 33.8 32.0-36.0 [facility] CenterKgmyomvFDADKHCYMX7206-35-19 10:24:00 Test Item Value Reference Range Interpretation Comments RDW (test code = RDW) 14.0 11.5-14.5 [facility] CenterJggfjadNNFILBEOCG9532-94-49 10:24:00 Test Item Value Reference Range Interpretation Comments Platelet (test code = Platelet) 236 133-450 [facility] CenterGuxgvxmLFJYQXZQWR5258-90-78 10:24:00 Test Item Value Reference Range Interpretation Comments MPV (test code = MPV) 6.9 7.4-10.4 [facility] CenterFkgfxsyHATPRHREQL6348-19-08 10:24:00 Test Item Value Reference Range Interpretation Comments Segs (test code = Segs) 78.2 45.0-75.0 [facility] CenterEkxqdwsCLEIGBSMVL9780-89-67 10:24:00 Test Item Value Reference Range Interpretation Comments Lymphocytes (test code = Lymphocytes) 12.2 20.0-40.0 [facility] CenterEnpicdnFSNHAOJLKU9638-68-18 10:24:00 Test Item Value Reference Range Interpretation Comments Monocytes (test code = Monocytes) 6.6 2.0-12.0 [facility] CenterJfxdspwCPZCZSTRTQ0462-38-54 10:24:00 Test Item Value Reference Range Interpretation Comments Eosinophils (test code = 2.4 See_Comment [A utomated message] The Eosinophils) system which ge nerated this result tra nsmitted reference range : <=4.0. The reference r yared was not used to int erpret this result as normal/abnormal . [facility] CenterLcjhusqZAHWWMKMFM3939-43-78 10:24:00 Test Item Value Reference Range Interpretation Comments Basophils (test code = 0.6 See_Comment [Aut omated message] The Basophils) system which ge nerated this result tra nsmitted reference range : <=1.0. The reference r yared was not used to int erpret this result as normal/abnormal . [facility] CenterNidbxluCQFCBYHVKW2374-46-58 10:24:00 Test Item Value Reference Range Interpretation Comments Neutrophils # (test code = Neutrophils 5.4 1.5-8.1 #) [facility] CenterYxsafvrOAIMFJHFOD2528-48-22 10:24:00 Test Item Value Reference Range Interpretation Comments Lymphocytes # (test code = Lymphocytes 0.8 1.0-5.5 #) [facility] CenterEipplraJCXETFGWSU8537-55-58 10:24:00 Test Item Value Reference Range Interpretation Comments Monocytes # (test code 0.5 See_Comment [Aut omated message] The = Monocytes #) system which generated this result tra nsmitted reference range : <=0.8. The reference r yared was not used to int erpret this result as normal/abnormal . [facility] CenterZdssrwmIFMXNKLFYD8816-96-05 10:24:00 Test Item Value Reference Range Interpretation Comments Eosinophils # (test code 0.2 See_Comment [A utomated message] The = Eosinophils #) system whic h generated this result tra nsmitted reference range : <=0.5. The reference r yared was not used to int erpret this result as normal/abnormal . [facility]2019-11-10 10:24:00 Test Item Value Reference Range Interpretation Comments Glucose Lvl (test code = Glucose Lvl) 106 70-99 [facility]2019-11-10 10:24:00 Test Item Value Reference Range Interpretation Comments BUN (test code = BUN) 34 7-22 [facility]2019-11-10 10:24:00 Test Item Value Reference Range Interpretation Comments Creatinine Lvl (test code = Creatinine 11.00 0.50-1.40 Lvl) [facility]2019-11-10 10:24:00 Test Item Value Reference Range Interpretation Comments Sodium Lvl (test code = Sodium Lvl) 139 135-145 [facility]2019-11-10 10:24:00 Test Item Value Reference Range Interpretation Comments Potassium Lvl (test code = Potassium 3.6 3.5-5.1 Lvl) [facility]2019-11-10 10:24:00 Test Item Value Reference Range Interpretation Comments Chloride Lvl (test code = Chloride Lvl) 103 95-109 [facility]2019-11-10 10:24:00 Test Item Value Reference Range Interpretation Comments CO2 (test code = CO2) 28 24-32 [facility]2019-11-10 10:24:00 Test Item Value Reference Range Interpretation Comments AGAP (test code = AGAP) 11.6 10.0-20.0 [facility]2019-11-10 10:24:00 Test Item Value Reference Range Interpretation Comments Calcium Lvl (test code = Calcium Lvl) 9.0 8.5-10.5 [facility]2019-11-10 10:24:00 Test Item Value Reference Range Interpretation Comments eGFR (test code = eGFR) 5 [facility] CenterWimjmqfIUZGRQXCKM0248-66-48 10:24:00 Test Item Value Reference Range Interpretation Comments WBC (test code = WBC) 6.9 3.7-10.4 [facility] CenterXqdrioqVAGCAYLFSH4832-34-10 10:24:00 Test Item Value Reference Range Interpretation Comments RBC (test code = RBC) 3.13 4.70-6.10 [facility] CenterHgumrdgVDBRFYGOEC5373-56-72 10:24:00 Test Item Value Reference Range Interpretation Comments Hgb (test code = Hgb) 9.3 14.0-18.0 [facility] CenterJqegrslDQOSKLEULY0960-83-33 10:24:00 Test Item Value Reference Range Interpretation Comments Hct (test code = Hct) 27.4 42.0-54.0 [facility] CenterJcwtjkdXDIOGDQZEX4795-50-66 10:24:00 Test Item Value Reference Range Interpretation Comments MCV (test code = MCV) 87.7 80.0-94.0 [facility] CenterKgyeabdSUERFVVPLX1835-91-12 10:24:00 Test Item Value Reference Range Interpretation Comments MCH (test code = MCH) 29.6 pg 27.0-31.0 [facility] CenterMhwnofqMZJTTWEOSH0098-92-56 10:24:00 Test Item Value Reference Range Interpretation Comments MCHC (test code = MCHC) 33.8 32.0-36.0 [facility] CenterNvzrmvxIYTZUDKLVK9500-84-30 10:24:00 Test Item Value Reference Range Interpretation Comments RDW (test code = RDW) 14.0 11.5-14.5 [facility] CenterHoigutnLVQUZTMPVW9637-70-28 10:24:00 Test Item Value Reference Range Interpretation Comments Platelet (test code = Platelet) 236 133-450 [facility] CenterJfycauzZMCPKEIJWG7394-15-86 10:24:00 Test Item Value Reference Range Interpretation Comments MPV (test code = MPV) 6.9 7.4-10.4 [facility] CenterEafepdoMQHTKWFMWH4102-27-40 10:24:00 Test Item Value Reference Range Interpretation Comments Segs (test code = Segs) 78.2 45.0-75.0 [facility] CenterXbopvsnKMGXLYZMDP3844-34-32 10:24:00 Test Item Value Reference Range Interpretation Comments Lymphocytes (test code = Lymphocytes) 12.2 20.0-40.0 [facility] CenterBcmvzvbDDUJRZQISB6638-83-51 10:24:00 Test Item Value Reference Range Interpretation Comments Monocytes (test code = Monocytes) 6.6 2.0-12.0 [facility] CenterLmuvhdzQBGIHTAWCR3570-90-35 10:24:00 Test Item Value Reference Range Interpretation Comments Eosinophils (test code = 2.4 See_Comment [A utomated message] The Eosinophils) system which ge nerated this result tra nsmitted reference range : <=4.0. The reference r yared was not used to int erpret this result as normal/abnormal . [facility] CenterPfxquqiFTSRKVIHNW5942-64-39 10:24:00 Test Item Value Reference Range Interpretation Comments Basophils (test code = 0.6 See_Comment [Aut omated message] The Basophils) system which ge nerated this result tra nsmitted reference range : <=1.0. The reference r yared was not used to int erpret this result as normal/abnormal . [facility] CenterUsikkmfBVSIWJGNYV4103-64-14 10:24:00 Test Item Value Reference Range Interpretation Comments Neutrophils # (test code = Neutrophils 5.4 1.5-8.1 #) [facility] CenterEvjjzfsJYLXUEXZIS8659-96-06 10:24:00 Test Item Value Reference Range Interpretation Comments Lymphocytes # (test code = Lymphocytes 0.8 1.0-5.5 #) [facility] CenterPmjvgieKOARVMDUSK6283-20-87 10:24:00 Test Item Value Reference Range Interpretation Comments Monocytes # (test code 0.5 See_Comment [Aut omated message] The = Monocytes #) system which generated this result tra nsmitted reference range : <=0.8. The reference r yared was not used to int erpret this result as normal/abnormal . [facility] CenterGcemqxtVUDZTJMFJC9124-20-10 10:24:00 Test Item Value Reference Range Interpretation Comments Eosinophils # (test code 0.2 See_Comment [A utomated message] The = Eosinophils #) system whic h generated this result tra nsmitted reference range : <=0.5. The reference r yared was not used to int erpret this result as normal/abnormal . [facility]ZqcyipyQVJHXQPVYH7265-06-63 14:31:00 Test Item Value Reference Range Interpretation Comments Hep Bs Ag (test code Negative *NA*(08/17/19 = Hep Bs Ag) 8:31 AM) [facility] CenterMooqqsfGQZJNHZVNL9073-18-69 14:31:00 Test Item Value Reference Range Interpretation Comments Hep Bs Ag (test code Negative *NA*(08/17/19 = Hep Bs Ag) 8:31 AM) [facility] CenterTiaqitqDOZKPIUCVB0629-29-32 19:35:00 Test Item Value Reference Range Interpretation Comments PT (test code = PT) 12.2 s 12.0-14.7 [facility] CenterOifyrlzSTVNDXHXVD9487-61-25 19:35:00 Test Item Value Reference Range Interpretation Comments INR (test code = INR) 0.92 1 0.85-1.17 [facility] CenterPvvnlkyRQZIZTTNDT9315-57-48 19:35:00 Test Item Value Reference Range Interpretation Comments PTT (test code = PTT) 37.1 s 22.9-35.8 [facility] CenterUmesahgIPVFCSNYDD0348-12-95 19:35:00 Test Item Value Reference Range Interpretation Comments PT (test code = PT) 12.2 s 12.0-14.7 [facility] CenterTtywokfBQZOOVMXWA1849-67-62 19:35:00 Test Item Value Reference Range Interpretation Comments INR (test code = INR) 0.92 1 0.85-1.17 [facility] CenterJquwtqpDGYNCBVYQR2177-30-03 19:35:00 Test Item Value Reference Range Interpretation Comments PTT (test code = PTT) 37.1 s 22.9-35.8 [facility]2019-06-30 10:20:00 Test Item Value Reference Range Interpretation Comments eGFR (test code = eGFR) 3 [facility]2019-06-30 10:20:00 Test Item Value Reference Range Interpretation Comments Glucose Lvl (test code = Glucose Lvl) 96 70-99 [facility]2019-06-30 10:20:00 Test Item Value Reference Range Interpretation Comments BUN (test code = BUN) 68 7-22 [facility]2019-06-30 10:20:00 Test Item Value Reference Range Interpretation Comments Calcium Lvl (test code = Calcium Lvl) 8.7 8.5-10.5 [facility]2019-06-30 10:20:00 Test Item Value Reference Range Interpretation Comments AGAP (test code = AGAP) 16.7 10.0-20.0 [facility]2019-06-30 10:20:00 Test Item Value Reference Range Interpretation Comments Sodium Lvl (test code = Sodium Lvl) 131 135-145 [facility]2019-06-30 10:20:00 Test Item Value Reference Range Interpretation Comments CO2 (test code = CO2) [facility]2019-06-30 10:20:00 Test Item Value Reference Range Interpretation Comments Potassium Lvl (test code = Potassium 3.7 3.5-5.1 Lvl) [facility]2019-06-30 10:20:00 Test Item Value Reference Range Interpretation Comments Chloride Lvl (test code = Chloride Lvl) 93 95-109 [facility]2019-06-30 10:20:00 Test Item Value Reference Range Interpretation Comments Creatinine Lvl (test code = Creatinine 15.20 0.50-1.40 Lvl) [facility]2019-06-30 10:20:00 Test Item Value Reference Range Interpretation Comments eGFR (test code = eGFR) 3 [facility]2019-06-30 10:20:00 Test Item Value Reference Range Interpretation Comments Glucose Lvl (test code = Glucose Lvl) 96 70-99 [facility]2019-06-30 10:20:00 Test Item Value Reference Range Interpretation Comments BUN (test code = BUN) 68 7-22 [facility]2019-06-30 10:20:00 Test Item Value Reference Range Interpretation Comments Calcium Lvl (test code = Calcium Lvl) 8.7 8.5-10.5 [facility]2019-06-30 10:20:00 Test Item Value Reference Range Interpretation Comments AGAP (test code = AGAP) 16.7 10.0-20.0 [facility]2019-06-30 10:20:00 Test Item Value Reference Range Interpretation Comments Sodium Lvl (test code = Sodium Lvl) 131 135-145 [facility]2019-06-30 10:20:00 Test Item Value Reference Range Interpretation Comments CO2 (test code = CO2) -32 [facility]2019-06-30 10:20:00 Test Item Value Reference Range Interpretation Comments Potassium Lvl (test code = Potassium 3.7 3.5-5.1 Lvl) [facility] CenterD[facility] [id number] 10:20:00 Test Item Value Reference Range Interpretation Comments Chloride Lvl (test code = Chloride Lvl) 93 95-109 [facility] [id number] 10:20:00 Test Item Value Reference Range Interpretation Comments Creatinine Lvl (test code = Creatinine 15.20 0.50-1.40 Lvl) [facility] [id number] 14:42:00 Test Item Value Reference Range Interpretation Comments Troponin-I (test code 0.03 See_Comment [Auto mated message] The = Troponin-I) system which g enerated this result transmit emerson reference range : <=0.40. The reference r yared was not used to interpr et this result as erinn l/abnormal. [facility] [id number] 14:42:00 Test Item Value Reference Range Interpretation Comments Troponin-I (test code 0.03 See_Comment [Auto mated message] The = Troponin-I) system which g enerated this result transmit emerson reference range : <=0.40. The reference r yared was not used to interpr et this result as erinn l/abnormal. [facility] Stain [id number] 14:25:00 Test Item Value Reference Range Interpretation Comments Gram Stain Report Rare WBC's No Organisms (test code = Gram Seen Stain Report) [facility] CenterCulture: Aspirate/Body Fluid/Hwbhqf3011-11-78 14:25:00 Test Item Value Reference Range Interpretation Comments Culture: Aspirate/Body Fluid/Tissue No Growth (test code = Culture: Aspirate/Body Fluid/Tissue) [facility] Stain Rkapjt9522-76-35 14:25:00 Test Item Value Reference Range Interpretation Comments Gram Stain Report Rare WBC's No Organisms (test code = Gram Seen Stain Report) [facility] CenterCulture: Aspirate/Body Fluid/Qltwoh0693-54-78 14:25:00 Test Item Value Reference Range Interpretation Comments Culture: Aspirate/Body Fluid/Tissue No Growth (test code = Culture: Aspirate/Body Fluid/Tissue) [facility] [id number] 08:16:00 Test Item Value Reference Range Interpretation Comments Vitamin B12 Lvl (test code = Vitamin [phone] B12 Lvl) [facility] CenterCARDIAC [id number] 08:16:00 Test Item Value Reference Range Interpretation Comments Troponin-I (test code 0.04 See_Comment [Auto mated message] The = Troponin-I) system which g enerated this result transmit emerson reference range : <=0.40. The reference r yared was not used to interpr et this result as erinn l/abnormal. [facility] [id number] 08:16:00 Test Item Value Reference Range Interpretation Comments Magnesium Lvl (test code = Magnesium 1.8 1.8-2.4 Lvl) [facility]2019-06-29 08:16:00 Test Item Value Reference Range Interpretation Comments eGFR (test code = eGFR) 3 [facility]2019-06-29 08:16:00 Test Item Value Reference Range Interpretation Comments A/G Ratio (test code = A/G Ratio) 0.6 1 0.7-1.6 [facility]2019-06-29 08:16:00 Test Item Value Reference Range Interpretation Comments B/C Ratio (test code = B/C Ratio) 4 1 6-25 [facility] CenterD[facility] [id number] 08:16:00 Test Item Value Reference Range Interpretation Comments Globulin (test code = Globulin) 3.4 2.7-4.2 [facility]2019-06-29 08:16:00 Test Item Value Reference Range Interpretation Comments Bili Total (test code = Bili Total) 0.4 0.2-1.3 [facility]2019-06-29 08:16:00 Test Item Value Reference Range Interpretation Comments AGAP (test code = AGAP) 18.3 10.0-20.0 [facility] [id number] 08:16:00 Test Item Value Reference Range Interpretation Comments Chloride Lvl (test code = Chloride Lvl) 93 95-109 [facility]2019-06-29 08:16:00 Test Item Value Reference Range Interpretation Comments CO2 (test code = CO2) 23 24-32 [facility]2019-06-29 08:16:00 Test Item Value Reference Range Interpretation Comments Calcium Lvl (test code = Calcium Lvl) 8.1 8.5-10.5 [facility]2019-06-29 08:16:00 Test Item Value Reference Range Interpretation Comments Glucose Lvl (test code = Glucose Lvl) 57 70-99 [facility]2019-06-29 08:16:00 Test Item Value Reference Range Interpretation Comments BUN (test code = BUN) 60 7-22 [facility]2019-06-29 08:16:00 Test Item Value Reference Range Interpretation Comments Sodium Lvl (test code = Sodium Lvl) 130 135-145 [facility]2019-06-29 08:16:00 Test Item Value Reference Range Interpretation Comments Creatinine Lvl (test code = Creatinine 15.90 0.50-1.40 Lvl) [facility]2019-06-29 08:16:00 Test Item Value Reference Range Interpretation Comments Potassium Lvl (test code = Potassium 4.3 3.5-5.1 Lvl) [facility]2019-06-29 08:16:00 Test Item Value Reference Range Interpretation Comments ALT (test code = ALT) 21 See_Comment [Auto mated message] The system which ge nerated this result transmit emerson reference range : <=65. The reference range was not used to interpr et this result as erinn l/abnormal. [facility]2019-06-29 08:16:00 Test Item Value Reference Range Interpretation Comments Alk Phos (test code = Alk Phos) 76 39-136 [facility]2019-06-29 08:16:00 Test Item Value Reference Range Interpretation Comments AST (test code = AST) 16 See_Comment [Auto mated message] The system which ge nerated this result transmit emerson reference range : <=37. The reference range was not used to interpr et this result as erinn l/abnormal. [facility]2019-06-29 08:16:00 Test Item Value Reference Range Interpretation Comments Total Protein (test code = Total 5.6 6.4-8.4 Protein) [facility]2019-06-29 08:16:00 Test Item Value Reference Range Interpretation Comments Albumin Lvl (test code = Albumin Lvl) 2.2 3.5-5.0 [facility] CenterScqmkutPATGQMZZNI3703-73-69 08:16:00 Test Item Value Reference Range Interpretation Comments PTT (test code = PTT) 41.5 s 22.9-35.8 [facility] CenterYllzyasNQCDIRXAHT8371-38-19 08:16:00 Test Item Value Reference Range Interpretation Comments PT (test code = PT) 14.4 s 12.0-14.7 [facility] CenterFaenfscHWJKRKOUPA5283-01-88 08:16:00 Test Item Value Reference Range Interpretation Comments INR (test code = INR) 1.14 1 0.85-1.17 [facility] CenterItxazzjKFOAGMYFPX6331-77-67 08:16:00 Test Item Value Reference Range Interpretation Comments RDW (test code = RDW) 15.5 11.5-14.5 [facility] CenterOzvaatlUKIUCRQFOB9651-60-93 08:16:00 Test Item Value Reference Range Interpretation Comments Platelet (test code = Platelet) 139 133-450 [facility] CenterYxqnpcpXVRAMESMVU1299-27-43 08:16:00 Test Item Value Reference Range Interpretation Comments MCH (test code = MCH) 28.7 pg 27.0-31.0 [facility] CenterGqassaoCQXWJSOGMD0728-39-59 08:16:00 Test Item Value Reference Range Interpretation Comments MCHC (test code = MCHC) 34.2 32.0-36.0 [facility] CenterBibnhcrBXVMHWEXSX2901-90-14 08:16:00 Test Item Value Reference Range Interpretation Comments MCV (test code = MCV) 84.1 80.0-94.0 [facility] CenterSojbuqsLMTBUHMSNM5601-95-57 08:16:00 Test Item Value Reference Range Interpretation Comments Hgb (test code = Hgb) 11.4 14.0-18.0 [facility] CenterBxpxxhrCYRGKMLFTN4753-48-34 08:16:00 Test Item Value Reference Range Interpretation Comments Hct (test code = Hct) 33.2 42.0-54.0 [facility] CenterJvrzbgkMRIMVVQKAC7634-07-04 08:16:00 Test Item Value Reference Range Interpretation Comments WBC (test code = WBC) 10.2 3.7-10.4 [facility] CenterPyravheFFSTMXTQMG6572-99-87 08:16:00 Test Item Value Reference Range Interpretation Comments RBC (test code = RBC) 3.95 4.70-6.10 [facility] CenterMajowkjSDKMNJQCHH6887-13-25 08:16:00 Test Item Value Reference Range Interpretation Comments MPV (test code = MPV) 8.3 7.4-10.4 [facility] CenterXhmnussAHNAIYSMZP8939-87-23 08:16:00 Test Item Value Reference Range Interpretation Comments Segs (test code = Segs) 84.8 45.0-75.0 [facility] CenterWafweajLPVMDUGJDU5932-01-49 08:16:00 Test Item Value Reference Range Interpretation Comments Basophils # (test code 0.1 See_Comment [Aut omated message] The = Basophils #) system which generated this result tra nsmitted reference range : <=0.2. The reference r yared was not used to int erpret this result as normal/abnormal . [facility] CenterNatdiiuTUFEEFEUUF6793-96-60 08:16:00 Test Item Value Reference Range Interpretation Comments Basophils (test code = 0.5 See_Comment [Aut omated message] The Basophils) system which ge nerated this result tra nsmitted reference range : <=1.0. The reference r yared was not used to int erpret this result as normal/abnormal . [facility]SqclfgnSCNUQJQPTL3731-79-86 08:16:00 Test Item Value Reference Range Interpretation Comments Eosinophils (test code = 1.2 See_Comment [A utomated message] The Eosinophils) system which ge nerated this result tra nsmitted reference range : <=4.0. The reference r yared was not used to int erpret this result as normal/abnormal . [facility] CenterGkbzkqcKIMHAGLKCJ5773-89-48 08:16:00 Test Item Value Reference Range Interpretation Comments Monocytes (test code = Monocytes) 6.5 2.0-12.0 [facility] CenterSfiozddPKNNYTJZYF8732-90-19 08:16:00 Test Item Value Reference Range Interpretation Comments Lymphocytes (test code = Lymphocytes) 7.0 20.0-40.0 [facility] CenterZygiklhRWYTUOQGBC5590-81-23 08:16:00 Test Item Value Reference Range Interpretation Comments Eosinophils # (test code 0.1 See_Comment [A utomated message] The = Eosinophils #) system wh h generated this result tra nsmitted reference range : <=0.5. The reference r yared was not used to int erpret this result as normal/abnormal . [facility] CenterJnwaskdMXYTMGKICF8342-13-48 08:16:00 Test Item Value Reference Range Interpretation Comments Monocytes # (test code 0.7 See_Comment [Aut omated message] The = Monocytes #) system which generated this result tra nsmitted reference range : <=0.8. The reference r yared was not used to int erpret this result as normal/abnormal . [facility] CenterAnklzcnYQZPIALRSI4881-39-17 08:16:00 Test Item Value Reference Range Interpretation Comments Lymphocytes # (test code = Lymphocytes 0.7 1.0-5.5 #) [facility] CenterKlvaejfCHHJCUMLYK3099-82-39 08:16:00 Test Item Value Reference Range Interpretation Comments Neutrophils # (test code = Neutrophils 8.7 1.5-8.1 #) [facility] KWJSH6883-42-30 08:16:00 Test Item Value Reference Range Interpretation Comments Vitamin B12 Lvl (test code = Vitamin [phone] B12 Lvl) [facility] CenterCARD[facility]AC RHVALTA8125-10-58 08:16:00 Test Item Value Reference Range Interpretation Comments Troponin-I (test code 0.04 See_Comment [Auto mated message] The = Troponin-I) system which g enerated this result transmit emerson reference range : <=0.40. The reference r yared was not used to interpr et this result as erinn l/abnormal. [facility]2019-06-29 08:16:00 Test Item Value Reference Range Interpretation Comments Magnesium Lvl (test code = Magnesium 1.8 1.8-2.4 Lvl) [facility]2019-06-29 08:16:00 Test Item Value Reference Range Interpretation Comments eGFR (test code = eGFR) 3 [facility]2019-06-29 08:16:00 Test Item Value Reference Range Interpretation Comments A/G Ratio (test code = A/G Ratio) 0.6 1 0.7-1.6 [facility]2019-06-29 08:16:00 Test Item Value Reference Range Interpretation Comments B/C Ratio (test code = B/C Ratio) 4 1 6-25 [facility]2019-06-29 08:16:00 Test Item Value Reference Range Interpretation Comments Globulin (test code = Globulin) 3.4 2.7-4.2 [facility]2019-06-29 08:16:00 Test Item Value Reference Range Interpretation Comments Bili Total (test code = Bili Total) 0.4 0.2-1.3 [facility]2019-06-29 08:16:00 Test Item Value Reference Range Interpretation Comments AGAP (test code = AGAP) 18.3 10.0-20.0 [facility]2019-06-29 08:16:00 Test Item Value Reference Range Interpretation Comments Chloride Lvl (test code = Chloride Lvl) 93 95-109 [facility]2019-06-29 08:16:00 Test Item Value Reference Range Interpretation Comments CO2 (test code = CO2) 23 24-32 [facility]2019-06-29 08:16:00 Test Item Value Reference Range Interpretation Comments Calcium Lvl (test code = Calcium Lvl) 8.1 8.5-10.5 [facility]2019-06-29 08:16:00 Test Item Value Reference Range Interpretation Comments Glucose Lvl (test code = Glucose Lvl) 57 70-99 [facility]2019-06-29 08:16:00 Test Item Value Reference Range Interpretation Comments BUN (test code = BUN) 60 7-22 [facility]2019-06-29 08:16:00 Test Item Value Reference Range Interpretation Comments Sodium Lvl (test code = Sodium Lvl) 130 135-145 [facility]2019-06-29 08:16:00 Test Item Value Reference Range Interpretation Comments Creatinine Lvl (test code = Creatinine 15.90 0.50-1.40 Lvl) [facility]2019-06-29 08:16:00 Test Item Value Reference Range Interpretation Comments Potassium Lvl (test code = Potassium 4.3 3.5-5.1 Lvl) [facility]2019-06-29 08:16:00 Test Item Value Reference Range Interpretation Comments ALT (test code = ALT) 21 See_Comment [Auto mated message] The system which ge nerated this result transmit emerson reference range : <=65. The reference range was not used to interpr et this result as erinn l/abnormal. [facility]2019-06-29 08:16:00 Test Item Value Reference Range Interpretation Comments Alk Phos (test code = Alk Phos) 76 39-136 [facility]2019-06-29 08:16:00 Test Item Value Reference Range Interpretation Comments AST (test code = AST) 16 See_Comment [Auto mated message] The system which ge nerated this result transmit emerson reference range : <=37. The reference range was not used to interpr et this result as erinn l/abnormal. [facility]2019-06-29 08:16:00 Test Item Value Reference Range Interpretation Comments Total Protein (test code = Total 5.6 6.4-8.4 Protein) [facility]2019-06-29 08:16:00 Test Item Value Reference Range Interpretation Comments Albumin Lvl (test code = Albumin Lvl) 2.2 3.5-5.0 [facility] CenterUwtkiutHNZFQXRLGJ4626-63-53 08:16:00 Test Item Value Reference Range Interpretation Comments PTT (test code = PTT) 41.5 s 22.9-35.8 [facility] CenterCxarzszYTRWVXIVWL6719-60-96 08:16:00 Test Item Value Reference Range Interpretation Comments PT (test code = PT) 14.4 s 12.0-14.7 [facility] CenterZfqwxrvLFHCYPCUTO2964-93-73 08:16:00 Test Item Value Reference Range Interpretation Comments INR (test code = INR) 1.14 1 0.85-1.17 [facility] CenterQhtozceSFHQIVSLZX5771-34-45 08:16:00 Test Item Value Reference Range Interpretation Comments RDW (test code = RDW) 15.5 11.5-14.5 [facility] CenterXttiglrNYVRINVVUQ0211-28-05 08:16:00 Test Item Value Reference Range Interpretation Comments Platelet (test code = Platelet) 139 133-450 [facility] CenterApldcpaCIFSDFSDQT4998-86-07 08:16:00 Test Item Value Reference Range Interpretation Comments MCH (test code = MCH) 28.7 pg 27.0-31.0 [facility] CenterUbgqnezLXHODMYCGO2627-82-93 08:16:00 Test Item Value Reference Range Interpretation Comments MCHC (test code = MCHC) 34.2 32.0-36.0 [facility] CenterIkvrpumIRBIZCLBFG8267-72-77 08:16:00 Test Item Value Reference Range Interpretation Comments MCV (test code = MCV) 84.1 80.0-94.0 [facility] CenterNaraljzLQXUNTKETM0350-08-60 08:16:00 Test Item Value Reference Range Interpretation Comments Hgb (test code = Hgb) 11.4 14.0-18.0 [facility] CenterGkvdxtjJYJOYUXJHO3696-35-09 08:16:00 Test Item Value Reference Range Interpretation Comments Hct (test code = Hct) 33.2 42.0-54.0 [facility] CenterIawzlvfFNWDIPVLHC1453-40-20 08:16:00 Test Item Value Reference Range Interpretation Comments WBC (test code = WBC) 10.2 3.7-10.4 [facility] CenterZkvewozCUXQTDDZVP2777-60-78 08:16:00 Test Item Value Reference Range Interpretation Comments RBC (test code = RBC) 3.95 4.70-6.10 [facility] CenterBfowomvQPXQQWDMZN1859-64-13 08:16:00 Test Item Value Reference Range Interpretation Comments MPV (test code = MPV) 8.3 7.4-10.4 [facility] CenterJfkqyvjNSZOCPHJOA3025-08-59 08:16:00 Test Item Value Reference Range Interpretation Comments Segs (test code = Segs) 84.8 45.0-75.0 [facility] CenterUqjhzpzECKUBEUVPW9285-15-76 08:16:00 Test Item Value Reference Range Interpretation Comments Basophils # (test code 0.1 See_Comment [Aut omated message] The = Basophils #) system which generated this result tra nsmitted reference range : <=0.2. The reference r yared was not used to int erpret this result as normal/abnormal . [facility] CenterTgvzqnwUFHYZJYHKI8376-68-29 08:16:00 Test Item Value Reference Range Interpretation Comments Basophils (test code = 0.5 See_Comment [Aut omated message] The Basophils) system which ge nerated this result tra nsmitted reference range : <=1.0. The reference r yared was not used to int erpret this result as normal/abnormal . [facility] CenterEfpjzbjKXJCSILQJC4162-78-98 08:16:00 Test Item Value Reference Range Interpretation Comments Eosinophils (test code = 1.2 See_Comment [A utomated message] The Eosinophils) system which ge nerated this result tra nsmitted reference range : <=4.0. The reference r yared was not used to int erpret this result as normal/abnormal . [facility] CenterFwerkkxXFPLMQJLVI1074-00-87 08:16:00 Test Item Value Reference Range Interpretation Comments Monocytes (test code = Monocytes) 6.5 2.0-12.0 [facility] CenterMxrsbtwDVJZJPXKUG0515-26-93 08:16:00 Test Item Value Reference Range Interpretation Comments Lymphocytes (test code = Lymphocytes) 7.0 20.0-40.0 [facility]ilnoxfVASDXYUSJD7671-70-77 [facility]:16:00 Test Item Value Reference Range Interpretation Comments Eosinophils # (test code 0.1 See_Comment [A utomated message] The = Eosinophils #) system whic h generated this result tra nsmitted reference range : <=0.5. The reference r yared was not used to int erpret this result as normal/abnormal . [facility] HospitalLpkeezxMBWPEVEPYC2162-38-52 08:16:00 Test Item Value Reference Range Interpretation Comments Monocytes # (test code 0.7 See_Comment [Aut omated message] The = Monocytes #) system which generated this result tra nsmitted reference range : <=0.8. The reference r yared was not used to int erpret this result as normal/abnormal . [facility] CenterGrjmqawQGOCZBTOOQ5220-94-54 08:16:00 Test Item Value Reference Range Interpretation Comments Lymphocytes # (test code = Lymphocytes 0.7 1.0-5.5 #) [facility]XwuydrrDCCRQJKIFO4863-42-73 08:16:00 Test Item Value Reference Range Interpretation Comments Neutrophils # (test code = Neutrophils 8.7 1.5-8.1 #) [facility] CenterDurect Corp[facility] [id number] 04:17:00 Test Item Value Reference Range Interpretation Comments Lactic Acid Lvl (test code = Lactic 0.3 0.5-2.2 Acid Lvl) [facility] CenterD[facility] [id number] 04:17:00 Test Item Value Reference Range Interpretation Comments Lactic Acid Lvl (test code = Lactic 0.3 0.5-2.2 Acid Lvl) [facility] CenterCARDIAC FNCFNPZ0906-75-07 02:25:00 Test Item Value Reference Range Interpretation Comments Troponin-I (test code 0.03 See_Comment [Auto mated message] The = Troponin-I) system which g enerated this result transmit emerson reference range : <=0.40. The reference r yared was not used to interpr et this result as erinn l/abnormal. [facility] CenterOxgcnggSFUVGP5251-74-51 02:25:00 Test Item Value Reference Range Interpretation Comments CHD Risk (test code = CHD Risk) 3.10 1 4.00-7.30 [facility] CenterXzrvvupYPHXLD6795-47-07 02:25:00 Test Item Value Reference Range Interpretation Comments VLDL (test code = VLDL) 21 1 [facility] EywjqqwCXDWBM2610-27-51 02:25:00 Test Item Value Reference Range Interpretation Comments HDL (test code = HDL) 58 [facility] CenterBnaudmfLWUPHD8597-63-05 02:25:00 Test Item Value Reference Range Interpretation Comments LDL (Calculated) (test code = LDL 101 (Calculated)) [facility] CenterReyrgasUHHKBS7212-97-93 02:25:00 Test Item Value Reference Range Interpretation Comments Chol (test code = Chol) 180 [facility] CenterJtwxvnfMZKKUE4980-50-92 02:25:00 Test Item Value Reference Range Interpretation Comments Trig (test code = Trig) 103 [facility] AIWYHJOVT5698-62-05 02:25:00 Test Item Value Reference Range Interpretation Comments Hgb A1C (test code = Hgb A1C) 4.0 [facility] CenterCARD[facility]AC OAVRONN2955-22-14 02:25:00 Test Item Value Reference Range Interpretation Comments Troponin-I (test code 0.03 See_Comment [Auto mated message] The = Troponin-I) system which g enerated this result transmit emerson reference range : <=0.40. The reference r yared was not used to interpr et this result as erinn l/abnormal. [facility] CenterBtmcyjrKDJXQO0755-54-06 02:25:00 Test Item Value Reference Range Interpretation Comments CHD Risk (test code = CHD Risk) 3.10 1 4.00-7.30 [facility] CenterUedhidaUPFLYF1932-91-06 02:25:00 Test Item Value Reference Range Interpretation Comments VLDL (test code = VLDL) 21 1 [facility] CenterWlisouhBQUSJF4106-90-35 02:25:00 Test Item Value Reference Range Interpretation Comments HDL (test code = HDL) 58 [facility] CenterJpovnzcFHIDRU3463-27-75 02:25:00 Test Item Value Reference Range Interpretation Comments LDL (Calculated) (test code = LDL 101 (Calculated)) [facility] CenterAjngcbrQZCJXA6569-02-35 02:25:00 Test Item Value Reference Range Interpretation Comments Chol (test code = Chol) 180 [facility] CenterXhnffykRPCRQO7908-97-10 02:25:00 Test Item Value Reference Range Interpretation Comments Trig (test code = Trig) 103 [facility] CenterannGARFIELD COUNTY PUBLIC HOSPITALIAL OLSORQWZC6212-37-85 02:25:00 Test Item Value Reference Range Interpretation Comments Hgb A1C (test code = Hgb A1C) 4.0 [facility] CenterCHEM QELYF0798-37-93 12:41:00 Test Item Value Reference Range Interpretation Comments Phosphorus (test code = Phosphorus) 6.1 2.5-4.5 [facility]DfvryahNESAGMRCRBAZ5003-17-95 12:41:00 Test Item Value Reference Range Interpretation Comments AGAP (test code = AGAP) 14.8 10.0-20.0 [facility] HospitalQkruzuoHKEQAWJYZDIX3414-42-49 12:41:00 Test Item Value Reference Range Interpretation Comments eGFR (test code = eGFR) 4 [facility] HospitalQgtggzpJOFSRJJCPNUJ3834-78-80 12:41:00 Test Item Value Reference Range Interpretation Comments CO2 (test code = CO2) 27 24-32 [facility] HospitalBamitbxXCTIIOGAKJOY0744-62-28 12:41:00 Test Item Value Reference Range Interpretation Comments Calcium Lvl (test code = Calcium Lvl) 7.9 8.5-10.5 [facility] HospitalRyovbemPVKXZJNZTVHF6454-16-53 12:41:00 Test Item Value Reference Range Interpretation Comments Creatinine Lvl (test code = Creatinine 12.90 0.50-1.40 Lvl) [facility] HospitalAlpmmufNUQKCQEMOUIN2130-43-26 12:41:00 Test Item Value Reference Range Interpretation Comments BUN (test code = BUN) 60 7-22 [facility] HospitalCvhmxnbMUWUYBYFCTOV1249-18-00 12:41:00 Test Item Value Reference Range Interpretation Comments Sodium Lvl (test code = Sodium Lvl) 139 135-145 [facility] HospitalXepvogpNFVRHZVHSTPV4524-84-58 12:41:00 Test Item Value Reference Range Interpretation Comments Glucose Lvl (test code = Glucose Lvl) 93 70-99 [facility] HospitalNictpmqAFJDVLVKBPIJ0265-93-94 12:41:00 Test Item Value Reference Range Interpretation Comments Chloride Lvl (test code = Chloride Lvl) 102 95-109 [facility] HospitalSczvhhhRHYNKZLGAKNU8438-29-38 12:41:00 Test Item Value Reference Range Interpretation Comments Potassium Lvl (test code = Potassium 4.8 3.5-5.1 Lvl) [facility] CenterMipotzfUKWQWBNACK0517-42-65 12:41:00 Test Item Value Reference Range Interpretation Comments MCHC (test code = MCHC) 35.3 32.0-36.0 [facility] CenterZbmwuviINETWEXEEG4449-28-96 12:41:00 Test Item Value Reference Range Interpretation Comments Hgb (test code = Hgb) 7.8 14.0-18.0 [facility] CenterIbycjzjLXZKSXTVTB5765-76-51 12:41:00 Test Item Value Reference Range Interpretation Comments Hct (test code = Hct) 22.0 42.0-54.0 [facility] CenterAjoiectMLTVMAWSHI6836-61-08 12:41:00 Test Item Value Reference Range Interpretation Comments RBC (test code = RBC) 2.68 4.70-6.10 [facility] CenterCxgutskTWYEBJCRNA6520-38-18 12:41:00 Test Item Value Reference Range Interpretation Comments WBC (test code = WBC) 4.4 3.7-10.4 [facility] CenterHlpxtqhYRQZYPLGVL8395-99-53 12:41:00 Test Item Value Reference Range Interpretation Comments RDW (test code = RDW) 14.5 11.5-14.5 [facility] CenterJqfcvjdGVTVPSBGSI7619-66-50 12:41:00 Test Item Value Reference Range Interpretation Comments MCV (test code = MCV) 82.1 80.0-94.0 [facility] CenterWvoakttUDKXXTLHYR3528-57-81 12:41:00 Test Item Value Reference Range Interpretation Comments MCH (test code = MCH) 29.0 pg 27.0-31.0 [facility] CenterTouacgkLGGNSOOGTC9093-50-68 12:41:00 Test Item Value Reference Range Interpretation Comments Platelet (test code = Platelet) 128 133-450 [facility] CenterAigketiWTUDWFHLRR1533-74-74 12:41:00 Test Item Value Reference Range Interpretation Comments MPV (test code = MPV) 7.3 7.4-10.4 [facility] CenterZazelghOVILMADOIV1021-78-42 12:41:00 Test Item Value Reference Range Interpretation Comments Monocytes # (test code 0.4 See_Comment [Aut omated message] The = Monocytes #) system which generated this result tra nsmitted reference range : <=0.8. The reference r yared was not used to int erpret this result as normal/abnormal . [facility] CenterCkyrnrhFRFHQXPDKA6282-73-58 12:41:00 Test Item Value Reference Range Interpretation Comments Eosinophils # (test code 0.2 See_Comment [A utomated message] The = Eosinophils #) system whic h generated this result tra nsmitted reference range : <=0.5. The reference r yared was not used to int erpret this result as normal/abnormal . [facility] CenterQlktlkoWFRIBSBGZG8289-96-63 12:41:00 Test Item Value Reference Range Interpretation Comments Monocytes (test code = Monocytes) 9.7 2.0-12.0 [facility] CenterCiuazziLPNBUWTOYS8584-03-50 12:41:00 Test Item Value Reference Range Interpretation Comments Eosinophils (test code = 3.7 See_Comment [A utomated message] The Eosinophils) system which ge nerated this result tra nsmitted reference range : <=4.0. The reference r yared was not used to int erpret this result as normal/abnormal . [facility] CenterSkzqyedOLPCAQHALH0641-68-65 12:41:00 Test Item Value Reference Range Interpretation Comments Basophils (test code = 0.8 See_Comment [Aut omated message] The Basophils) system which ge nerated this result tra nsmitted reference range : <=1.0. The reference r yared was not used to int erpret this result as normal/abnormal . [facility] CenterNibxbbcODHBPGHAQX9425-73-46 12:41:00 Test Item Value Reference Range Interpretation Comments Neutrophils # (test code = Neutrophils 3.0 1.5-8.1 #) [facility] CenterKcdwhfjOJOUPMLSQU3876-54-17 12:41:00 Test Item Value Reference Range Interpretation Comments Lymphocytes # (test code = Lymphocytes 0.8 1.0-5.5 #) [facility] CenterFxhiwnxYEQXTZBUHS6517-73-52 12:41:00 Test Item Value Reference Range Interpretation Comments Segs (test code = Segs) 67.6 45.0-75.0 [facility] CenterUwetzeyLIICWYPXRH9709-73-85 12:41:00 Test Item Value Reference Range Interpretation Comments Lymphocytes (test code = Lymphocytes) 18.2 20.0-40.0 [facility]2018-10-15 12:41:00 Test Item Value Reference Range Interpretation Comments Phosphorus (test code = Phosphorus) 6.1 2.5-4.5 [facility]ZwlqbmePAQSMKWGLVBI6527-52-86 12:41:00 Test Item Value Reference Range Interpretation Comments AGAP (test code = AGAP) 14.8 10.0-20.0 [facility] HospitalHoiytchDICDGYNDJHEB8606-16-67 12:41:00 Test Item Value Reference Range Interpretation Comments eGFR (test code = eGFR) 4 [facility] HospitalCfjgtumGEWZVPFGKCPN7597-99-87 12:41:00 Test Item Value Reference Range Interpretation Comments CO2 (test code = CO2) 27 24-32 [facility] HospitalOuqpdlpWHBGZMKEFMNK9323-01-27 12:41:00 Test Item Value Reference Range Interpretation Comments Calcium Lvl (test code = Calcium Lvl) 7.9 8.5-10.5 [facility] HospitalVecvmghMQVCHGRJSOGK2948-26-04 12:41:00 Test Item Value Reference Range Interpretation Comments Creatinine Lvl (test code = Creatinine 12.90 0.50-1.40 Lvl) [facility] HospitalCxtjgbbVGGSOYBZWXOH0345-00-54 12:41:00 Test Item Value Reference Range Interpretation Comments BUN (test code = BUN) 60 7-22 [facility] HospitalLyrnwqyCODHHBGOBVZA7901-78-04 12:41:00 Test Item Value Reference Range Interpretation Comments Sodium Lvl (test code = Sodium Lvl) 139 135-145 [facility] HospitalQycayhpICCEBYYTDSFJ9141-07-19 12:41:00 Test Item Value Reference Range Interpretation Comments Glucose Lvl (test code = Glucose Lvl) 93 70-99 [facility] HospitalHixtnaqHAHKWCCUIUZE1825-00-62 12:41:00 Test Item Value Reference Range Interpretation Comments Chloride Lvl (test code = Chloride Lvl) 102 95-109 [facility] HospitalQhiszxvWXICWVTZFUYC1848-33-14 12:41:00 Test Item Value Reference Range Interpretation Comments Potassium Lvl (test code = Potassium 4.8 3.5-5.1 Lvl) [facility] CenterPynexgcALSORQBWGD7385-64-97 12:41:00 Test Item Value Reference Range Interpretation Comments MCHC (test code = MCHC) 35.3 32.0-36.0 [facility] CenterAmjhkdhTASENRBQRQ5131-21-73 12:41:00 Test Item Value Reference Range Interpretation Comments Hgb (test code = Hgb) 7.8 14.0-18.0 [facility] CenterWkilzyrSUCKWXJUDQ9898-71-82 12:41:00 Test Item Value Reference Range Interpretation Comments Hct (test code = Hct) 22.0 42.0-54.0 [facility] CenterDapwfdeHHPNLPXCPZ5487-11-22 12:41:00 Test Item Value Reference Range Interpretation Comments RBC (test code = RBC) 2.68 4.70-6.10 [facility] CenterIpynuqwZUYBAJDQNL8575-91-94 12:41:00 Test Item Value Reference Range Interpretation Comments WBC (test code = WBC) 4.4 3.7-10.4 [facility] CenterBajktdjPWOPHEQQQV4878-24-48 12:41:00 Test Item Value Reference Range Interpretation Comments RDW (test code = RDW) 14.5 11.5-14.5 [facility] CenterDwqxxzaLEJQTKFNJF2084-13-42 12:41:00 Test Item Value Reference Range Interpretation Comments MCV (test code = MCV) 82.1 80.0-94.0 [facility] CenterBvytzgqQQGFWOJSVW8459-67-26 12:41:00 Test Item Value Reference Range Interpretation Comments MCH (test code = MCH) 29.0 pg 27.0-31.0 [facility] CenterBmoikrtZWAVCXXJWQ3745-83-65 12:41:00 Test Item Value Reference Range Interpretation Comments Platelet (test code = Platelet) 128 133-450 [facility] CenterZnjpimvUBTICSZMZO9392-60-84 12:41:00 Test Item Value Reference Range Interpretation Comments MPV (test code = MPV) 7.3 7.4-10.4 [facility] CenterMaarpvpMUAPEJUKTC0886-41-21 12:41:00 Test Item Value Reference Range Interpretation Comments Monocytes # (test code 0.4 See_Comment [Aut omated message] The = Monocytes #) system which generated this result tra nsmitted reference range : <=0.8. The reference r yared was not used to int erpret this result as normal/abnormal . [facility] CenterBsvtpdyCPRXATFIVJ4773-16-55 12:41:00 Test Item Value Reference Range Interpretation Comments Eosinophils # (test code 0.2 See_Comment [A utomated message] The = Eosinophils #) system whic h generated this result tra nsmitted reference range : <=0.5. The reference r yared was not used to int erpret this result as normal/abnormal . [facility]JmilwsaZCZTYUXCPA9541-97-40 12:41:00 Test Item Value Reference Range Interpretation Comments Monocytes (test code = Monocytes) 9.7 2.0-12.0 [facility] CenterXvfmsvqJFKLHPSZBR8595-87-32 12:41:00 Test Item Value Reference Range Interpretation Comments Eosinophils (test code = 3.7 See_Comment [A utomated message] The Eosinophils) system which ge nerated this result tra nsmitted reference range : <=4.0. The reference r yared was not used to int erpret this result as normal/abnormal . [facility] CenterSelwqyaVMKJTXDWMH3041-51-59 12:41:00 Test Item Value Reference Range Interpretation Comments Basophils (test code = 0.8 See_Comment [Aut omated message] The Basophils) system which ge nerated this result tra nsmitted reference range : <=1.0. The reference r yared was not used to int erpret this result as normal/abnormal . [facility] CenterWfvnvtlYVLKZNFHQT2503-01-01 12:41:00 Test Item Value Reference Range Interpretation Comments Neutrophils # (test code = Neutrophils 3.0 1.5-8.1 #) [facility] CenterUujhfndVSKYLFEFTR1527-69-49 12:41:00 Test Item Value Reference Range Interpretation Comments Lymphocytes # (test code = Lymphocytes 0.8 1.0-5.5 #) [facility] CenterNjfzonqVLZJXIDZRI2264-38-24 12:41:00 Test Item Value Reference Range Interpretation Comments Segs (test code = Segs) 67.6 45.0-75.0 [facility] CenterChocpbdNEPISJMIAT2250-36-89 12:41:00 Test Item Value Reference Range Interpretation Comments Lymphocytes (test code = Lymphocytes) 18.2 20.0-40.0 [facility]2018-10-14 11:17:00 Test Item Value Reference Range Interpretation Comments Magnesium Lvl (test code = Magnesium 2.5 1.8-2.4 Lvl) [facility]2018-10-14 11:17:00 Test Item Value Reference Range Interpretation Comments Phosphorus (test code = Phosphorus) 8.3 2.5-4.5 [facility]IyqbaltRNTDJXHMJVPB7297-47-88 11:17:00 Test Item Value Reference Range Interpretation Comments CO2 (test code = CO2) 22 24-32 [facility] HospitalHanqsdzTHXRNOHXSQYA0177-66-78 11:17:00 Test Item Value Reference Range Interpretation Comments Calcium Lvl (test code = Calcium Lvl) 7.5 8.5-10.5 [facility] HospitalCpufuohCNAAKDPKFILM8344-50-67 11:17:00 Test Item Value Reference Range Interpretation Comments Chloride Lvl (test code = Chloride Lvl) 98 95-109 [facility] HospitalKwybonnHIGTOVAOWLDP9269-16-42 11:17:00 Test Item Value Reference Range Interpretation Comments eGFR (test code = eGFR) 2 [facility] HospitalGxbhqmsUIULWJVSWNHK1485-08-10 11:17:00 Test Item Value Reference Range Interpretation Comments Creatinine Lvl (test code = Creatinine 19.20 0.50-1.40 Lvl) [facility] HospitalFhttytcILJDNECBDOHN4885-31-54 11:17:00 Test Item Value Reference Range Interpretation Comments BUN (test code = BUN) 97 7-22 [facility] HospitalJihnmjmFZSNJGVUSBNH4687-88-06 11:17:00 Test Item Value Reference Range Interpretation Comments Potassium Lvl (test code = Potassium 4.7 3.5-5.1 Lvl) [facility] HospitalSaybcbfWTGWQRFTLKPP8938-70-01 11:17:00 Test Item Value Reference Range Interpretation Comments Sodium Lvl (test code = Sodium Lvl) 135 135-145 [facility] HospitalMqdsottCIHCKPYVIMTX4313-88-90 11:17:00 Test Item Value Reference Range Interpretation Comments Glucose Lvl (test code = Glucose Lvl) 82 70-99 [facility] HospitalCvkcuouGXRJUDWKIITS3052-01-96 11:17:00 Test Item Value Reference Range Interpretation Comments AGAP (test code = AGAP) 19.7 10.0-20.0 [facility] CenterQiwzhudXDYJVITJQR8626-96-60 11:17:00 Test Item Value Reference Range Interpretation Comments WBC (test code = WBC) 4.9 3.7-10.4 [facility] CenterKksedruFVNFIIMUIX4589-29-12 11:17:00 Test Item Value Reference Range Interpretation Comments RBC (test code = RBC) 2.85 4.70-6.10 [facility] CenterSymxdagXQYFOXCBAT9124-88-17 11:17:00 Test Item Value Reference Range Interpretation Comments MCV (test code = MCV) 82.3 80.0-94.0 [facility] CenterItusztqIIRPLZHBIL4005-97-72 11:17:00 Test Item Value Reference Range Interpretation Comments MCH (test code = MCH) 28.8 pg 27.0-31.0 [facility] CenterWzxfonvWBLLDXRZLI0374-68-21 11:17:00 Test Item Value Reference Range Interpretation Comments Hgb (test code = Hgb) 8.2 14.0-18.0 [facility] CenterYnahigmDZGIEOKOXN9210-73-13 11:17:00 Test Item Value Reference Range Interpretation Comments Hct (test code = Hct) 23.4 42.0-54.0 [facility] CenterXvedeebPCMPJWCVOW9060-68-88 11:17:00 Test Item Value Reference Range Interpretation Comments RDW (test code = RDW) 15.0 11.5-14.5 [facility] CenterVxztlgzDOHLJWSVRQ6472-81-61 11:17:00 Test Item Value Reference Range Interpretation Comments MCHC (test code = MCHC) 35.0 32.0-36.0 [facility] CenterDugbscqJCWFYAIFNT5627-75-17 11:17:00 Test Item Value Reference Range Interpretation Comments MPV (test code = MPV) 7.4 7.4-10.4 [facility] CenterDjafaulHREYHJUXIX5402-16-38 11:17:00 Test Item Value Reference Range Interpretation Comments Platelet (test code = Platelet) 140 133-450 [facility] CenterMhtwrufVMAVSWXHZI5786-67-01 11:17:00 Test Item Value Reference Range Interpretation Comments Lymphocytes (test code = Lymphocytes) 20.3 20.0-40.0 [facility] CenterIhzvibsYWHXMQYOMV2429-03-35 11:17:00 Test Item Value Reference Range Interpretation Comments Basophils (test code = 1.0 See_Comment [Aut omated message] The Basophils) system which ge nerated this result tra nsmitted reference range : <=1.0. The reference r yared was not used to int erpret this result as normal/abnormal . [facility] CenterFgafbwvBXUOWTRLCY6902-36-48 11:17:00 Test Item Value Reference Range Interpretation Comments Segs (test code = Segs) 67.1 45.0-75.0 [facility] CenterWfdyqgjEKAPRHOBBC8253-49-82 11:17:00 Test Item Value Reference Range Interpretation Comments Neutrophils # (test code = Neutrophils 3.3 1.5-8.1 #) [facility] CenterKaapxhmGJCQJGLHBZ3002-59-19 11:17:00 Test Item Value Reference Range Interpretation Comments Eosinophils (test code = 3.1 See_Comment [A utomated message] The Eosinophils) system which ge nerated this result tra nsmitted reference range : <=4.0. The reference r yared was not used to int erpret this result as normal/abnormal . [facility] CenterCbiqherGPFOIZYMRF5612-75-90 11:17:00 Test Item Value Reference Range Interpretation Comments Monocytes (test code = Monocytes) 8.5 2.0-12.0 [facility] CenterNibwqgpFAKQKHZTSE5187-34-95 11:17:00 Test Item Value Reference Range Interpretation Comments Monocytes # (test code 0.4 See_Comment [Aut omated message] The = Monocytes #) system which generated this result tra nsmitted reference range : <=0.8. The reference r yared was not used to int erpret this result as normal/abnormal . [facility]IbchwjiBPGQGTGLLE4758-38-44 11:17:00 Test Item Value Reference Range Interpretation Comments Lymphocytes # (test code = Lymphocytes 1.0 1.0-5.5 #) [facility] HospitalDxmrewePUKQIQSKIL5390-78-82 11:17:00 Test Item Value Reference Range Interpretation Comments Eosinophils # (test code 0.1 See_Comment [A utomated message] The = Eosinophils #) system whic h generated this result tra nsmitted reference range : <=0.5. The reference r yared was not used to int erpret this result as normal/abnormal . [facility] CenterIkjcmlxNQYEFFOJYA6152-55-67 11:17:00 Test Item Value Reference Range Interpretation Comments Hep Bs Ag (test code Negative *NA*(07/22/18 = Hep Bs Ag) 6:17 AM) [facility] CenterDurect Corp. [id number] 11:17:00 Test Item Value Reference Range Interpretation Comments Magnesium Lvl (test code = Magnesium 2.5 1.8-2.4 Lvl) [facility] CenterDure[facility] FBLYX6565-63-91 11:17:00 Test Item Value Reference Range Interpretation Comments Phosphorus (test code = Phosphorus) 8.3 2.5-4.5 [facility] HospitalTvrqpczYSXMCMJMAMFM3575-23-97 11:17:00 Test Item Value Reference Range Interpretation Comments CO2 (test code = CO2) 22 24-32 [facility] HospitalTynaxspRZLRSQBNAYHZ8032-65-38 11:17:00 Test Item Value Reference Range Interpretation Comments Calcium Lvl (test code = Calcium Lvl) 7.5 8.5-10.5 [facility] HospitalEfwxxngUZOIWEYTGRTI6357-70-26 11:17:00 Test Item Value Reference Range Interpretation Comments Chloride Lvl (test code = Chloride Lvl) 98 95-109 [facility] HospitalAdcptjxDBGGVGUTPLEU6831-64-34 11:17:00 Test Item Value Reference Range Interpretation Comments eGFR (test code = eGFR) 2 [facility] HospitalJdljfvoIMLJXAVLFVID6087-82-74 11:17:00 Test Item Value Reference Range Interpretation Comments Creatinine Lvl (test code = Creatinine 19.20 0.50-1.40 Lvl) [facility] HospitalTuosxjjQLFNVCIKGGYZ6269-14-68 11:17:00 Test Item Value Reference Range Interpretation Comments BUN (test code = BUN) 97 7-22 [facility] HospitalCzslzpiHPLBLWSNKLEJ8523-85-19 11:17:00 Test Item Value Reference Range Interpretation Comments Potassium Lvl (test code = Potassium 4.7 3.5-5.1 Lvl) [facility] HospitalJhteungRPHVABVWZECI5491-04-25 11:17:00 Test Item Value Reference Range Interpretation Comments Sodium Lvl (test code = Sodium Lvl) 135 135-145 [facility] HospitalSsnusxjSVJIRWRBYDEI5825-75-78 11:17:00 Test Item Value Reference Range Interpretation Comments Glucose Lvl (test code = Glucose Lvl) 82 70-99 [facility] HospitalSwkmiutKHHZGMUTYZTZ9660-27-00 11:17:00 Test Item Value Reference Range Interpretation Comments AGAP (test code = AGAP) 19.7 10.0-20.0 [facility] CenterDpanaieRMKBQQIXYD1432-81-00 11:17:00 Test Item Value Reference Range Interpretation Comments WBC (test code = WBC) 4.9 3.7-10.4 [facility] CenterDsbnmaoKVOFPLKLNV3480-52-88 11:17:00 Test Item Value Reference Range Interpretation Comments RBC (test code = RBC) 2.85 4.70-6.10 [facility] CenterGenzmnqCSGEYDOLNP2074-01-40 11:17:00 Test Item Value Reference Range Interpretation Comments MCV (test code = MCV) 82.3 80.0-94.0 [facility] CenterGqmcrvwEWLLPZKBBR2316-58-36 11:17:00 Test Item Value Reference Range Interpretation Comments MCH (test code = MCH) 28.8 pg 27.0-31.0 [facility] CenterYzqmzndNALJUYVBMF7135-82-76 11:17:00 Test Item Value Reference Range Interpretation Comments Hgb (test code = Hgb) 8.2 14.0-18.0 [facility] CenterVjfuplbJZYAAPDJYV0593-56-89 11:17:00 Test Item Value Reference Range Interpretation Comments Hct (test code = Hct) 23.4 42.0-54.0 [facility] CenterGhkbueaLUTCBDWSMD4391-40-61 11:17:00 Test Item Value Reference Range Interpretation Comments RDW (test code = RDW) 15.0 11.5-14.5 [facility] CenterFmtuasrGKJVYQFRTN3810-22-16 11:17:00 Test Item Value Reference Range Interpretation Comments MCHC (test code = MCHC) 35.0 32.0-36.0 [facility] CenterDjwtwgdEQDESALPUM4273-55-75 11:17:00 Test Item Value Reference Range Interpretation Comments MPV (test code = MPV) 7.4 7.4-10.4 [facility] CenterQycjvvzZXXQPEXGLI2807-38-26 11:17:00 Test Item Value Reference Range Interpretation Comments Platelet (test code = Platelet) 140 133-450 [facility] CenterNerutcoFAFENSANLU7248-03-33 11:17:00 Test Item Value Reference Range Interpretation Comments Lymphocytes (test code = Lymphocytes) 20.3 20.0-40.0 [facility] CenterLaradtwETPNBCROWK6740-63-04 11:17:00 Test Item Value Reference Range Interpretation Comments Basophils (test code = 1.0 See_Comment [Aut omated message] The Basophils) system which ge nerated this result tra nsmitted reference range : <=1.0. The reference r yared was not used to int erpret this result as normal/abnormal . [facility] CenterUrtobofXCMGNUUEJT1666-63-27 11:17:00 Test Item Value Reference Range Interpretation Comments Segs (test code = Segs) 67.1 45.0-75.0 [facility] CenterIzbnawaVENHLLFWMD2540-42-46 11:17:00 Test Item Value Reference Range Interpretation Comments Neutrophils # (test code = Neutrophils 3.3 1.5-8.1 #) [facility] CenterJxjxjsbMXFYTWIYYH0162-42-52 11:17:00 Test Item Value Reference Range Interpretation Comments Eosinophils (test code = 3.1 See_Comment [A utomated message] The Eosinophils) system which ge nerated this result tra nsmitted reference range : <=4.0. The reference r yared was not used to int erpret this result as normal/abnormal . [facility] CenterBargnvtTLIIBONOPX1720-98-07 11:17:00 Test Item Value Reference Range Interpretation Comments Monocytes (test code = Monocytes) 8.5 2.0-12.0 [facility] CenterGmsopwbFZKHNBLRBJ4310-40-78 11:17:00 Test Item Value Reference Range Interpretation Comments Monocytes # (test code 0.4 See_Comment [Aut omated message] The = Monocytes #) system which generated this result tra nsmitted reference range : <=0.8. The reference r yared was not used to int erpret this result as normal/abnormal . [facility] UfnsfxpFXAODHAALL5288-38-82 11:17:00 Test Item Value Reference Range Interpretation Comments Lymphocytes # (test code = Lymphocytes 1.0 1.0-5.5 #) [facility] HnhdcdiPRFGHQMDAW8369-51-09 11:17:00 Test Item Value Reference Range Interpretation Comments Eosinophils # (test code 0.1 See_Comment [A utomated message] The = Eosinophils #) system whic h generated this result tra nsmitted reference range : <=0.5. The reference r yared was not used to int erpret this result as normal/abnormal . [facility] TvuopogCBTTAQOSIW7524-43-26 11:17:00 Test Item Value Reference Range Interpretation Comments Hep Bs Ag (test code Negative *NA*(07/22/18 = Hep Bs Ag) 6:17 AM) [facility]...ExactlyAC SRSTSMK2104-21-56 02:46:00 Test Item Value Reference Range Interpretation Comments proBNP (test code = 24217 See_Comment [Automa emerson message] The proBNP) system which ge nerated this result tra nsmitted reference range : <=125. The reference r yared was not used to int erpret this result as erinn l/abnormal. [facility] [employer]2018-10-14 02:46:00 Test Item Value Reference Range Interpretation Comments Troponin-I (test code no gt See_Comment [Auto mated message] The = Troponin-I) system which g enerated this result transmit emerson reference range : <=0.40. The reference r yared was not used to interpr et this result as erinn l/abnormal. [facility]...[employer] ASKGLGF3691-99-37 02:46:00 Test Item Value Reference Range Interpretation Comments Total CK (test code = Total CK) 91 12-191 [facility] [employer] LZVQF5150-61-98 02:46:00 Test Item Value Reference Range Interpretation Comments Lipase Lvl (test code = Lipase Lvl) 95 73-393 [facility] [employer] UGBLL6854-95-17 02:46:00 Test Item Value Reference Range Interpretation Comments Globulin (test code = Globulin) 3.2 2.7-4.2 [facility] [employer] XKOMG1453-73-15 02:46:00 Test Item Value Reference Range Interpretation Comments A/G Ratio (test code = A/G Ratio) 0.9 1 0.7-1.6 [facility]2018-10-14 02:46:00 Test Item Value Reference Range Interpretation Comments B/C Ratio (test code = B/C Ratio) 5 1 6-25 [place] 943368-10-14 02:46:00 Test Item Value Reference Range Interpretation Comments AGAP (test code = AGAP) 18.7 10.0-20.0 [facility]2018-10-14 02:46:00 Test Item Value Reference Range Interpretation Comments eGFR (test code = eGFR) 2 [facility]2018-10-14 02:46:00 Test Item Value Reference Range Interpretation Comments Calcium Lvl (test code = Calcium Lvl) 7.6 8.5-10.5 [facility]2018-10-14 02:46:00 Test Item Value Reference Range Interpretation Comments CO2 (test code = CO2) 24 24-32 [facility]2018-10-14 02:46:00 Test Item Value Reference Range Interpretation Comments Chloride Lvl (test code = Chloride Lvl) 98 95-109 [facility]2018-10-14 02:46:00 Test Item Value Reference Range Interpretation Comments Potassium Lvl (test code = Potassium 4.7 3.5-5.1 Lvl) [facility]2018-10-14 02:46:00 Test Item Value Reference Range Interpretation Comments Sodium Lvl (test code = Sodium Lvl) 136 135-145 [facility]2018-10-14 02:46:00 Test Item Value Reference Range Interpretation Comments Albumin Lvl (test code = Albumin Lvl) 2.8 3.5-5.0 [facility]2018-10-14 02:46:00 Test Item Value Reference Range Interpretation Comments ALT (test code = ALT) 13 See_Comment [Auto mated message] The system which ge nerated this result transmit emerson reference range : <=65. The reference range was not used to interpr et this result as erinn l/abnormal. [facility]2018-10-14 02:46:00 Test Item Value Reference Range Interpretation Comments AST (test code = AST) 9 See_Comment [Auto mated message] The system which ge nerated this result transmit emerson reference range : <=37. The reference range was not used to interpr et this result as erinn l/abnormal. [facility]2018-10-14 02:46:00 Test Item Value Reference Range Interpretation Comments Alk Phos (test code = Alk Phos) 57 39-136 [facility]2018-10-14 02:46:00 Test Item Value Reference Range Interpretation Comments Total Protein (test code = Total 6.0 6.4-8.4 Protein) [facility]2018-10-14 02:46:00 Test Item Value Reference Range Interpretation Comments Bili Total (test code = Bili Total) 0.4 0.2-1.3 [place] 943368-10-14 02:46:00 Test Item Value Reference Range Interpretation Comments Creatinine Lvl (test code = Creatinine 18.60 0.50-1.40 Lvl) [facility]2018-10-14 02:46:00 Test Item Value Reference Range Interpretation Comments Glucose Lvl (test code = Glucose Lvl) 89 70-99 [facility]2018-10-14 02:46:00 Test Item Value Reference Range Interpretation Comments BUN (test code = BUN) 95 7-22 [facility] CenterTinxfygRXRTSSDOYW3624-44-70 02:46:00 Test Item Value Reference Range Interpretation Comments Segs (test code = Segs) 66.2 45.0-75.0 [facility] CenterBpinzdfYILPDRRQVP5750-85-48 02:46:00 Test Item Value Reference Range Interpretation Comments Lymphocytes (test code = Lymphocytes) 21.4 20.0-40.0 [facility] CenterSgdxncnEQZMRZAEAD1188-48-17 02:46:00 Test Item Value Reference Range Interpretation Comments Monocytes (test code = Monocytes) 7.7 2.0-12.0 [place] 437928-10-14 02:46:00 Test Item Value Reference Range Interpretation Comments Lymphocytes # (test code = Lymphocytes 0.9 1.0-5.5 #) [facility] CenterLekliqdADKKLFIUAR8978-09-62 02:46:00 Test Item Value Reference Range Interpretation Comments Basophils (test code = 1.2 See_Comment [Aut omated message] The Basophils) system which ge nerated this result tra nsmitted reference range : <=1.0. The reference r yared was not used to int erpret this result as normal/abnormal . [facility] CenterDeviyhcXIOWXCVMUW4777-87-81 02:46:00 Test Item Value Reference Range Interpretation Comments Monocytes # (test code 0.3 See_Comment [Aut omated message] The = Monocytes #) system which generated this result tra nsmitted reference range : <=0.8. The reference r yared was not used to int erpret this result as normal/abnormal . [facility] CenterZlwciakPXZBTEAMUA6930-91-76 02:46:00 Test Item Value Reference Range Interpretation Comments Eosinophils # (test code 0.1 See_Comment [A utomated message] The = Eosinophils #) system whic h generated this result tra nsmitted reference range : <=0.5. The reference r yared was not used to int erpret this result as normal/abnormal . [facility] CenterTovcweyPHIJNVUPDO3640-46-80 02:46:00 Test Item Value Reference Range Interpretation Comments Neutrophils # (test code = Neutrophils 2.7 1.5-8.1 #) [facility] CenterSzbyhihIDSJIIWQJK3842-58-56 02:46:00 Test Item Value Reference Range Interpretation Comments Eosinophils (test code = 3.5 See_Comment [A utomated message] The Eosinophils) system which ge nerated this result tra nsmitted reference range : <=4.0. The reference r yared was not used to int erpret this result as normal/abnormal . [facility] CenterSalzjhcIIJUIENDDB2705-29-29 02:46:00 Test Item Value Reference Range Interpretation Comments PT (test code = PT) 14.4 s 12.0-14.7 [facility] CenterLhgistwMWSLGWTAXA2739-44-59 02:46:00 Test Item Value Reference Range Interpretation Comments INR (test code = INR) 1.12 1 0.85-1.17 [facility] CenterWivhhatDXPSMJXSIS4304-76-57 02:46:00 Test Item Value Reference Range Interpretation Comments PTT (test code = PTT) 37.1 s 22.9-35.8 [facility] CenterGhncnkpUREYGEFBKB4383-66-98 02:46:00 Test Item Value Reference Range Interpretation Comments RDW (test code = RDW) 14.8 11.5-14.5 [facility] CenterHpgxvlnUXOWSKIORP8191-06-10 02:46:00 Test Item Value Reference Range Interpretation Comments Platelet (test code = Platelet) 143 133-450 [facility]IwwshtoFHXTCPDKJI2964-07-10 02:46:00 Test Item Value Reference Range Interpretation Comments MPV (test code = MPV) 7.6 7.4-10.4 [facility]HgpwztwTNYCPDIARS1741-27-38 02:46:00 Test Item Value Reference Range Interpretation Comments RBC (test code = RBC) 2.83 4.70-6.10 [facility] HospitalZycktliILHLYHDWFV9248-70-71 02:46:00 Test Item Value Reference Range Interpretation Comments WBC (test code = WBC) 4.1 3.7-10.4 [facility] HospitalQvgfasrNCMFYJRWHC8866-55-55 02:46:00 Test Item Value Reference Range Interpretation Comments MCHC (test code = MCHC) 35.2 32.0-36.0 [facility] HospitalRpxijjxMOCALOOOMJ7197-35-94 02:46:00 Test Item Value Reference Range Interpretation Comments MCH (test code = MCH) 28.8 pg 27.0-31.0 [facility] HospitalIhtotvtKTEWJTGRIP6135-84-73 02:46:00 Test Item Value Reference Range Interpretation Comments Hgb (test code = Hgb) 8.1 14.0-18.0 [facility] HospitalWowypsbHUWDFBRWFE4719-06-39 02:46:00 Test Item Value Reference Range Interpretation Comments MCV (test code = MCV) 81.9 80.0-94.0 [facility] HospitalEiiuuseAJWHVPLADL9817-69-49 02:46:00 Test Item Value Reference Range Interpretation Comments Hct (test code = Hct) 23.2 42.0-54.0 [facility]Inv[facility].cz2018-[facility]-14 02:46:00 Test Item Value Reference Range Interpretation Comments proBNP (test code = 25987 See_Comment [Automa emerson message] The proBNP) system which ge nerated this result tra nsmitted reference range : <=125. The reference r yared was not used to int erpret this result as erinn l/abnormal. [facility] CenterInv[facility].cz2018-10-14 02:46:00 Test Item Value Reference Range Interpretation Comments Troponin-I (test code no gt See_Comment [Auto mated message] The = Troponin-I) system which g enerated this result transmit emerson reference range : <=0.40. The reference r yared was not used to interpr et this result as erinn l/abnormal. [facility] CenterCARDIAC WTQMOYZ4961-25-48 02:46:00 Test Item Value Reference Range Interpretation Comments Total CK (test code = Total CK) 91 12-191 [facility]2018-10-14 02:46:00 Test Item Value Reference Range Interpretation Comments Lipase Lvl (test code = Lipase Lvl) 95 73-393 [facility]2018-10-14 02:46:00 Test Item Value Reference Range Interpretation Comments Globulin (test code = Globulin) 3.2 2.7-4.2 [facility]2018-10-14 02:46:00 Test Item Value Reference Range Interpretation Comments A/G Ratio (test code = A/G Ratio) 0.9 1 0.7-1.6 [facility]2018-10-14 02:46:00 Test Item Value Reference Range Interpretation Comments B/C Ratio (test code = B/C Ratio) 5 1 6-25 [facility]2018-10-14 02:46:00 Test Item Value Reference Range Interpretation Comments AGAP (test code = AGAP) 18.7 10.0-20.0 [facility]2018-10-14 02:46:00 Test Item Value Reference Range Interpretation Comments eGFR (test code = eGFR) 2 [facility]2018-10-14 02:46:00 Test Item Value Reference Range Interpretation Comments Calcium Lvl (test code = Calcium Lvl) 7.6 8.5-10.5 [facility]2018-10-14 02:46:00 Test Item Value Reference Range Interpretation Comments CO2 (test code = CO2) 24 24-32 [facility]2018-10-14 02:46:00 Test Item Value Reference Range Interpretation Comments Chloride Lvl (test code = Chloride Lvl) 98 95-109 [facility]2018-10-14 02:46:00 Test Item Value Reference Range Interpretation Comments Potassium Lvl (test code = Potassium 4.7 3.5-5.1 Lvl) [facility]2018-10-14 02:46:00 Test Item Value Reference Range Interpretation Comments Sodium Lvl (test code = Sodium Lvl) 136 135-145 [facility]2018-10-14 02:46:00 Test Item Value Reference Range Interpretation Comments Albumin Lvl (test code = Albumin Lvl) 2.8 3.5-5.0 [facility]2018-10-14 02:46:00 Test Item Value Reference Range Interpretation Comments ALT (test code = ALT) 13 See_Comment [Auto mated message] The system which ge nerated this result transmit emerson reference range : <=65. The reference range was not used to interpr et this result as erinn l/abnormal. [facility]2018-10-14 02:46:00 Test Item Value Reference Range Interpretation Comments AST (test code = AST) 9 See_Comment [Auto mated message] The system which ge nerated this result transmit emerson reference range : <=37. The reference range was not used to interpr et this result as erinn l/abnormal. [place] 943368-10-14 02:46:00 Test Item Value Reference Range Interpretation Comments Alk Phos (test code = Alk Phos) 57 39-136 [facility]2018-10-14 02:46:00 Test Item Value Reference Range Interpretation Comments Total Protein (test code = Total 6.0 6.4-8.4 Protein) [place] 943368-10-14 02:46:00 Test Item Value Reference Range Interpretation Comments Bili Total (test code = Bili Total) 0.4 0.2-1.3 [facility]2018-10-14 02:46:00 Test Item Value Reference Range Interpretation Comments Creatinine Lvl (test code = Creatinine 18.60 0.50-1.40 Lvl) [facility]2018-10-14 02:46:00 Test Item Value Reference Range Interpretation Comments Glucose Lvl (test code = Glucose Lvl) 89 70-99 [place] 943368-10-14 02:46:00 Test Item Value Reference Range Interpretation Comments BUN (test code = BUN) 95 7-22 [facility]FzuahluZKKAUFPFMN3011[facility] 02:46:00 Test Item Value Reference Range Interpretation Comments Segs (test code = Segs) 66.2 45.0-75.0 [facility] CenterJkdwsxiFMVJIAIYUB6387-16-96 02:46:00 Test Item Value Reference Range Interpretation Comments Lymphocytes (test code = Lymphocytes) 21.4 20.0-40.0 [facility] CenterSvlwldcLBNKNKOIZB4265-97-22 02:46:00 Test Item Value Reference Range Interpretation Comments Monocytes (test code = Monocytes) 7.7 2.0-12.0 [facility] CenterWqlmwzbCURQNQCEKZ6228-74-87 02:46:00 Test Item Value Reference Range Interpretation Comments Lymphocytes # (test code = Lymphocytes 0.9 1.0-5.5 #) [facility] CenterIqvmhduTQILTQVIUB0953-71-34 02:46:00 Test Item Value Reference Range Interpretation Comments Basophils (test code = 1.2 See_Comment [Aut omated message] The Basophils) system which ge nerated this result tra nsmitted reference range : <=1.0. The reference r yared was not used to int erpret this result as normal/abnormal . [facility] CenterYxxjjbdVLMENYRLAD4260-87-34 02:46:00 Test Item Value Reference Range Interpretation Comments Monocytes # (test code 0.3 See_Comment [Aut omated message] The = Monocytes #) system which generated this result tra nsmitted reference range : <=0.8. The reference r yared was not used to int erpret this result as normal/abnormal . [facility] CenterPnbhzykQAMUSEHUCT8888-32-86 02:46:00 Test Item Value Reference Range Interpretation Comments Eosinophils # (test code 0.1 See_Comment [A utomated message] The = Eosinophils #) system wh h generated this result tra nsmitted reference range : <=0.5. The reference r yared was not used to int erpret this result as normal/abnormal . [facility] CenterYdgfokwEPCIPSRBQZ5165-92-16 02:46:00 Test Item Value Reference Range Interpretation Comments Neutrophils # (test code = Neutrophils 2.7 1.5-8.1 #) [facility] CenterVetftekBOORDSNOOY1073-87-57 02:46:00 Test Item Value Reference Range Interpretation Comments Eosinophils (test code = 3.5 See_Comment [A utomated message] The Eosinophils) system which ge nerated this result tra nsmitted reference range : <=4.0. The reference r yared was not used to int erpret this result as normal/abnormal . [facility] CenterUifzuruIFXXWUHVVR8383-95-71 02:46:00 Test Item Value Reference Range Interpretation Comments PT (test code = PT) 14.4 s 12.0-14.7 [facility] CenterBrdsrwnMMEAGFITOI7699-11-05 02:46:00 Test Item Value Reference Range Interpretation Comments INR (test code = INR) 1.12 1 0.85-1.17 [facility] CenterXiiopunJXHHTFQVFG3810-43-49 02:46:00 Test Item Value Reference Range Interpretation Comments PTT (test code = PTT) 37.1 s 22.9-35.8 [facility] CenterRsmlxdoXOABVCTXAE6444-28-46 02:46:00 Test Item Value Reference Range Interpretation Comments RDW (test code = RDW) 14.8 11.5-14.5 [facility] CenterNzwacdrLQGEAYBWIA8807-18-52 02:46:00 Test Item Value Reference Range Interpretation Comments Platelet (test code = Platelet) 143 133-450 [facility] CenterAislbstIQEVMGOXCB8590-73-09 02:46:00 Test Item Value Reference Range Interpretation Comments MPV (test code = MPV) 7.6 7.4-10.4 [facility] CenterXvlmbezJKWLSIBZAY9427-75-87 02:46:00 Test Item Value Reference Range Interpretation Comments RBC (test code = RBC) 2.83 4.70-6.10 [facility] CenterThsdwdqCVVNFZGOHO7242-32-94 02:46:00 Test Item Value Reference Range Interpretation Comments WBC (test code = WBC) 4.1 3.7-10.4 [facility] CenterXvndkbmCYWMKVYLFD3237-33-99 02:46:00 Test Item Value Reference Range Interpretation Comments MCHC (test code = MCHC) 35.2 32.0-36.0 [facility] CenterNozrdbzICYPUQZPDA5764-55-28 02:46:00 Test Item Value Reference Range Interpretation Comments MCH (test code = MCH) 28.8 pg 27.0-31.0 [facility] CenterXicmhktWJNGHAVDGC0092-74-20 02:46:00 Test Item Value Reference Range Interpretation Comments Hgb (test code = Hgb) 8.1 14.0-18.0 [facility] CenterDnidtmmCOEBBYGYYZ3195-23-68 02:46:00 Test Item Value Reference Range Interpretation Comments MCV (test code = MCV) 81.9 80.0-94.0 [facility] CenterYmrwcbuWECMHRSVJA7864-53-86 02:46:00 Test Item Value Reference Range Interpretation Comments Hct (test code = Hct) 23.2 42.0-54.0 [facility]2018-10-12 22:52:00 Test Item Value Reference Range Interpretation Comments BUN (test code = BUN) 86 7-22 [facility]2018-10-12 22:52:00 Test Item Value Reference Range Interpretation Comments Chloride Lvl (test code = Chloride Lvl) 97 95-109 [facility]2018-10-12 22:52:00 Test Item Value Reference Range Interpretation Comments Potassium Lvl (test code = Potassium 5.2 3.5-5.1 Lvl) [facility]2018-10-12 22:52:00 Test Item Value Reference Range Interpretation Comments Sodium Lvl (test code = Sodium Lvl) 135 135-145 [facility]2018-10-12 22:52:00 Test Item Value Reference Range Interpretation Comments Creatinine Lvl (test code = Creatinine 17.30 0.50-1.40 Lvl) [facility]2018-10-12 22:52:00 Test Item Value Reference Range Interpretation Comments Glucose Lvl (test code = Glucose Lvl) 98 70-99 [facility]2018-10-12 22:52:00 Test Item Value Reference Range Interpretation Comments eGFR (test code = eGFR) 3 [facility]2018-10-12 22:52:00 Test Item Value Reference Range Interpretation Comments Alk Phos (test code = Alk Phos) 70 39-136 [facility]2018-10-12 22:52:00 Test Item Value Reference Range Interpretation Comments AST (test code = AST) 10 See_Comment [Auto mated message] The system which ge nerated this result transmit emerson reference range : <=37. The reference range was not used to interpr et this result as erinn l/abnormal. [facility]2018-10-12 22:52:00 Test Item Value Reference Range Interpretation Comments Bili Total (test code = Bili Total) 0.4 0.2-1.3 [facility]2018-10-12 22:52:00 Test Item Value Reference Range Interpretation Comments Total Protein (test code = Total 6.8 6.4-8.4 Protein) [facility]2018-10-12 22:52:00 Test Item Value Reference Range Interpretation Comments Calcium Lvl (test code = Calcium Lvl) 8.1 8.5-10.5 [facility]2018-10-12 22:52:00 Test Item Value Reference Range Interpretation Comments CO2 (test code = CO2) 24 24-32 [facility]2018-10-12 22:52:00 Test Item Value Reference Range Interpretation Comments ALT (test code = ALT) 19 See_Comment [Auto mated message] The system which ge nerated this result transmit emerson reference range : <=65. The reference range was not used to interpr et this result as erinn l/abnormal. [facility]2018-10-12 22:52:00 Test Item Value Reference Range Interpretation Comments Albumin Lvl (test code = Albumin Lvl) 3.3 3.5-5.0 [facility]2018-10-12 22:52:00 Test Item Value Reference Range Interpretation Comments A/G Ratio (test code = A/G Ratio) 0.9 1 0.7-1.6 [facility]2018-10-12 22:52:00 Test Item Value Reference Range Interpretation Comments AGAP (test code = AGAP) 19.2 10.0-20.0 [facility]2018-10-12 22:52:00 Test Item Value Reference Range Interpretation Comments Globulin (test code = Globulin) 3.5 2.7-4.2 [facility]2018-10-12 22:52:00 Test Item Value Reference Range Interpretation Comments B/C Ratio (test code = B/C Ratio) 5 1 6-25 [facility] CenterUnsalnyPVNVNHTYUY4901-30-83 22:52:00 Test Item Value Reference Range Interpretation Comments Platelet (test code = Platelet) 184 133-450 [facility] CenterCpnnqxtXLVFWXCSWH5701-43-84 22:52:00 Test Item Value Reference Range Interpretation Comments MPV (test code = MPV) 6.8 7.4-10.4 [facility] CenterExxjfayMFHOJYYTSH7301-95-64 22:52:00 Test Item Value Reference Range Interpretation Comments MCHC (test code = MCHC) 35.4 32.0-36.0 [facility] CenterTobnaswTTYNAJKMMK1142-81-19 22:52:00 Test Item Value Reference Range Interpretation Comments RDW (test code = RDW) 15.1 11.5-14.5 [facility] CenterYbzbvbeGDQHSVURQV1647-03-95 22:52:00 Test Item Value Reference Range Interpretation Comments Hct (test code = Hct) 26.1 42.0-54.0 [facility] CenterHqjzdjaBCXUFTZNHJ6404-97-16 22:52:00 Test Item Value Reference Range Interpretation Comments MCV (test code = MCV) 81.4 80.0-94.0 [facility] CenterTytfamwRIKTBENKKC8722-67-40 22:52:00 Test Item Value Reference Range Interpretation Comments MCH (test code = MCH) 28.8 pg 27.0-31.0 [facility] CenterMgzwxykMBNWUHQTZV9486-92-26 22:52:00 Test Item Value Reference Range Interpretation Comments WBC (test code = WBC) 5.4 3.7-10.4 [place] [address]-10-12 22:52:00 Test Item Value Reference Range Interpretation Comments RBC (test code = RBC) 3.20 4.70-6.10 [facility] CenterZddlkuvBLUGXWJTGL6399-40-57 22:52:00 Test Item Value Reference Range Interpretation Comments Hgb (test code = Hgb) 9.2 14.0-18.0 [facility] CenterBepcbehLLVOTHBPCX3668-91-02 22:52:00 Test Item Value Reference Range Interpretation Comments Segs (test code = Segs) 74.0 45.0-75.0 [facility] CenterYoxrqojKVHPSKTLLC5069-82-81 22:52:00 Test Item Value Reference Range Interpretation Comments Lymphocytes (test code = Lymphocytes) 15.5 20.0-40.0 [facility] CenterXqeohfnMKMGRSZKHN8439-35-77 22:52:00 Test Item Value Reference Range Interpretation Comments Monocytes (test code = Monocytes) 6.7 2.0-12.0 [facility] CenterEeyfbvvSGTUIDVNTB1149-90-36 22:52:00 Test Item Value Reference Range Interpretation Comments Eosinophils (test code = 2.8 See_Comment [A utomated message] The Eosinophils) system which ge nerated this result tra nsmitted reference range : <=4.0. The reference r yared was not used to int erpret this result as normal/abnormal . [facility] CenterPuogbipYTBVSINCUH0456-85-14 22:52:00 Test Item Value Reference Range Interpretation Comments Basophils (test code = 1.0 See_Comment [Aut omated message] The Basophils) system which ge nerated this result tra nsmitted reference range : <=1.0. The reference r yared was not used to int erpret this result as normal/abnormal . [facility] CenterEqkrzkfDGRDNXYIUD6318-97-52 22:52:00 Test Item Value Reference Range Interpretation Comments Neutrophils # (test code = Neutrophils 4.0 1.5-8.1 #) [facility] CenterQzndqcgUCHLYTBKHU4540-86-23 22:52:00 Test Item Value Reference Range Interpretation Comments Basophils # (test code 0.1 See_Comment [Aut omated message] The = Basophils #) system which generated this result tra nsmitted reference range : <=0.2. The reference r yared was not used to int erpret this result as normal/abnormal . [facility] CenterXkyptfkUILPHJCFWI9545-46-58 22:52:00 Test Item Value Reference Range Interpretation Comments Eosinophils # (test code 0.2 See_Comment [A utomated message] The = Eosinophils #) system whic h generated this result tra nsmitted reference range : <=0.5. The reference r yared was not used to int erpret this result as normal/abnormal . [facility] CenterBpmafnzLHKRALLJNF2990-75-63 22:52:00 Test Item Value Reference Range Interpretation Comments Lymphocytes # (test code = Lymphocytes 0.8 1.0-5.5 #) [facility] CenterKqofskxBYMVUCHKPU7877-63-94 22:52:00 Test Item Value Reference Range Interpretation Comments Monocytes # (test code 0.4 See_Comment [Aut omated message] The = Monocytes #) system which generated this result tra nsmitted reference range : <=0.8. The reference r yared was not used to int erpret this result as normal/abnormal . [facility]2018-10-12 22:52:00 Test Item Value Reference Range Interpretation Comments BUN (test code = BUN) 86 7-22 [facility]2018-10-12 22:52:00 Test Item Value Reference Range Interpretation Comments Chloride Lvl (test code = Chloride Lvl) 97 95-109 [facility]2018-10-12 22:52:00 Test Item Value Reference Range Interpretation Comments Potassium Lvl (test code = Potassium 5.2 3.5-5.1 Lvl) [facility]2018-10-12 22:52:00 Test Item Value Reference Range Interpretation Comments Sodium Lvl (test code = Sodium Lvl) 135 135-145 [facility]2018-10-12 22:52:00 Test Item Value Reference Range Interpretation Comments Creatinine Lvl (test code = Creatinine 17.30 0.50-1.40 Lvl) [facility]2018-10-12 22:52:00 Test Item Value Reference Range Interpretation Comments Glucose Lvl (test code = Glucose Lvl) 98 70-99 [facility]2018-10-12 22:52:00 Test Item Value Reference Range Interpretation Comments eGFR (test code = eGFR) 3 [facility]2018-10-12 22:52:00 Test Item Value Reference Range Interpretation Comments Alk Phos (test code = Alk Phos) 70 39-136 [place] 943368-10-12 22:52:00 Test Item Value Reference Range Interpretation Comments AST (test code = AST) 10 See_Comment [Auto mated message] The system which ge nerated this result transmit emerson reference range : <=37. The reference range was not used to interpr et this result as erinn l/abnormal. [facility]2018-10-12 22:52:00 Test Item Value Reference Range Interpretation Comments Bili Total (test code = Bili Total) 0.4 0.2-1.3 [place] 943368-10-12 22:52:00 Test Item Value Reference Range Interpretation Comments Total Protein (test code = Total 6.8 6.4-8.4 Protein) [facility]2018-10-12 22:52:00 Test Item Value Reference Range Interpretation Comments Calcium Lvl (test code = Calcium Lvl) 8.1 8.5-10.5 [facility]2018-10-12 22:52:00 Test Item Value Reference Range Interpretation Comments CO2 (test code = CO2) 24 24-32 [place] 943368-10-12 22:52:00 Test Item Value Reference Range Interpretation Comments ALT (test code = ALT) 19 See_Comment [Auto mated message] The system which ge nerated this result transmit emerson reference range : <=65. The reference range was not used to interpr et this result as erinn l/abnormal. [place] 943368-10-12 22:52:00 Test Item Value Reference Range Interpretation Comments Albumin Lvl (test code = Albumin Lvl) 3.3 3.5-5.0 [place] 943368-10-12 22:52:00 Test Item Value Reference Range Interpretation Comments A/G Ratio (test code = A/G Ratio) 0.9 1 0.7-1.6 [facility]2018-10-12 22:52:00 Test Item Value Reference Range Interpretation Comments AGAP (test code = AGAP) 19.2 10.0-20.0 [facility]2018-10-12 22:52:00 Test Item Value Reference Range Interpretation Comments Globulin (test code = Globulin) 3.5 2.7-4.2 [facility]2018-10-12 22:52:00 Test Item Value Reference Range Interpretation Comments B/C Ratio (test code = B/C Ratio) 5 1 6-25 [facility] CenterDoxylssOPTICPXQTA0959-11-39 22:52:00 Test Item Value Reference Range Interpretation Comments Platelet (test code = Platelet) 184 133-450 [facility] CenterVvgliykVACREABSLJ2136-55-91 22:52:00 Test Item Value Reference Range Interpretation Comments MPV (test code = MPV) 6.8 7.4-10.4 [facility] CenterXzkdtobRUBIMIYILS5652-92-50 22:52:00 Test Item Value Reference Range Interpretation Comments MCHC (test code = MCHC) 35.4 32.0-36.0 [facility] CenterZjjouqnQDJQBQSLFL2047-85-56 22:52:00 Test Item Value Reference Range Interpretation Comments RDW (test code = RDW) 15.1 11.5-14.5 [facility] CenterVqupzwoKBIAKCYGSD5751-10-51 22:52:00 Test Item Value Reference Range Interpretation Comments Hct (test code = Hct) 26.1 42.0-54.0 [facility] CenterLwqnzcaPQMWLVSWHZ6726-72-40 22:52:00 Test Item Value Reference Range Interpretation Comments MCV (test code = MCV) 81.4 80.0-94.0 [facility] CenterBdmhuyvQYFNQGCXFX4569-86-29 22:52:00 Test Item Value Reference Range Interpretation Comments MCH (test code = MCH) 28.8 pg 27.0-31.0 [facility] CenterDhfwttoCGKCNXIPTR4914-64-78 22:52:00 Test Item Value Reference Range Interpretation Comments WBC (test code = WBC) 5.4 3.7-10.4 [facility] CenterNoghyzqYQAEEUIBHM4392-99-06 22:52:00 Test Item Value Reference Range Interpretation Comments RBC (test code = RBC) 3.20 4.70-6.10 [facility] CenterUbxupvhRXBWXZGONG5372-62-17 22:52:00 Test Item Value Reference Range Interpretation Comments Hgb (test code = Hgb) 9.2 14.0-18.0 [facility] CenterLfaqsgnHURHYVINLM9784-17-37 22:52:00 Test Item Value Reference Range Interpretation Comments Segs (test code = Segs) 74.0 45.0-75.0 [facility] CenterRzcxsqtMHGCLVLIWV7581-81-80 22:52:00 Test Item Value Reference Range Interpretation Comments Lymphocytes (test code = Lymphocytes) 15.5 20.0-40.0 [facility] CenterZsqgxuePCYNHISCVY7854-03-68 22:52:00 Test Item Value Reference Range Interpretation Comments Monocytes (test code = Monocytes) 6.7 2.0-12.0 [facility] CenterXhvbfhtPLVMVODXKI6514-53-92 22:52:00 Test Item Value Reference Range Interpretation Comments Eosinophils (test code = 2.8 See_Comment [A utomated message] The Eosinophils) system which ge nerated this result tra nsmitted reference range : <=4.0. The reference r yared was not used to int erpret this result as normal/abnormal . [facility] CenterQnalixwRYJWJFHAAR7246-11-08 22:52:00 Test Item Value Reference Range Interpretation Comments Basophils (test code = 1.0 See_Comment [Aut omated message] The Basophils) system which ge nerated this result tra nsmitted reference range : <=1.0. The reference r yared was not used to int erpret this result as normal/abnormal . [facility] CenterAsdqkclXTQNAOVHTC9720-41-49 22:52:00 Test Item Value Reference Range Interpretation Comments Neutrophils # (test code = Neutrophils 4.0 1.5-8.1 #) [facility] CenterIyepmaxUMYNRTYHUJ3655-67-71 22:52:00 Test Item Value Reference Range Interpretation Comments Basophils # (test code 0.1 See_Comment [Aut omated message] The = Basophils #) system which generated this result tra nsmitted reference range : <=0.2. The reference r yared was not used to int erpret this result as normal/abnormal . [facility] CenterEthhvspTHSLQKFAEI0485-89-11 22:52:00 Test Item Value Reference Range Interpretation Comments Eosinophils # (test code 0.2 See_Comment [A utomated message] The = Eosinophils #) system whic h generated this result tra nsmitted reference range : <=0.5. The reference r yared was not used to int erpret this result as normal/abnormal . [facility] CenterTiegrddAAHJYGSVLI9561-14-11 22:52:00 Test Item Value Reference Range Interpretation Comments Lymphocytes # (test code = Lymphocytes 0.8 1.0-5.5 #) [facility] CenterEovjyoyRYMJVAGJSV3416-71-08 22:52:00 Test Item Value Reference Range Interpretation Comments Monocytes # (test code 0.4 See_Comment [Aut omated message] The = Monocytes #) system which generated this result tra nsmitted reference range : <=0.8. The reference r yared was not used to int erpret this result as normal/abnormal . [facility] LAB [id number] 15:54:00 Test Item Value Reference Range Interpretation Comments Test Name (test code = HLA TYPING RESULTS Test Name) [facility] LAB [id number] 15:54:00 Test Item Value Reference Range Interpretation Comments Test Name (test code = HLA TYPING RESULTS Test Name) [facility] BANK [id number] 15:20:00 Test Item Value Reference Range Interpretation Comments ABO/RH Confirm (test code = ABO/RH O POS Confirm) [facility] AND [id number] 15:20:00 Test Item Value Reference Range Interpretation Comments UA Renal Epi (test code = UA Renal Epi) RARE [facility] AND [id number] 15:20:00 Test Item Value Reference Range Interpretation Comments UA Urobilinogen (test code = UA <=1.0 mg/dL 0.1-1.0 Urobilinogen) [facility] AND [id number] 15:20:00 Test Item Value Reference Range Interpretation Comments UA Glucose (test code = UA Glucose) 100mg/dL [facility] AND [id number] 15:20:00 Test Item Value Reference Range Interpretation Comments UA Sq Epi (test code = UA Sq Moderate /LPF Epi) [facility] AND [id number] 15:20:00 Test Item Value Reference Range Interpretation Comments UA Leuk Est (test code Small *ABN*(05/23/18 = UA Leuk Est) 10:20 AM) [facility] AND [id number] 15:20:00 Test Item Value Reference Range Interpretation Comments UA Ketones (test code = UA Negative mg/dL Ketones) [facility] AND [id number] 15:20:00 Test Item Value Reference Range Interpretation Comments UA RBC (test code = no gt See_Comment [Automa emerson message] The UA RBC) system which ge nerated this result transmit emerson reference range : <=2. The reference range was not used to interpr et this result as erinn l/abnormal. [facility] AND [id number] 15:20:00 Test Item Value Reference Range Interpretation Comments UA WBC (test code = 9 See_Comment [Automa emerson message] The UA WBC) system which ge nerated this result transmit emerson reference range : <=5. The reference range was not used to interpr et this result as erinn l/abnormal. [facility] AND [id number] 15:20:00 Test Item Value Reference Range Interpretation Comments UA Nitrite (test code Negative (05/23/18 10:20 = UA Nitrite) AM) [facility] AND [id number] 15:20:00 Test Item Value Reference Range Interpretation Comments UA Blood (test code = Trace *ABN*(05/23/18 UA Blood) 10:20 AM) [facility] AND [id number] 15:20:00 Test Item Value Reference Range Interpretation Comments UA Bili (test code = Negative *NA*(05/23/18 UA Bili) 10:20 AM) [facility] AND [id number] 15:20:00 Test Item Value Reference Range Interpretation Comments UA Mucus (test code = UA Mucus) Few /LPF [facility] AND [id number] 15:20:00 Test Item Value Reference Range Interpretation Comments UA Protein (test code = UA >=300 mg/dL Protein) [facility] AND [id number] 15:20:00 Test Item Value Reference Range Interpretation Comments UA pH (test code = UA pH) 6.5 1 5.0-8.0 [facility] AND [id number] 15:20:00 Test Item Value Reference Range Interpretation Comments UA Spec Grav (test code = UA Spec 1.008 1 Grav) [facility] AND [id number] 15:20:00 Test Item Value Reference Range Interpretation Comments UA Turbidity (test code Slight *ABN*(05/23/18 = UA Turbidity) 10:20 AM) [facility] AND [id number] 15:20:00 Test Item Value Reference Range Interpretation Comments UA Color (test code = Yellow *NA*(05/23/18 UA Color) 10:20 AM) [facility] [id number] 15:20:00 Test Item Value Reference Range Interpretation Comments U Microalb (test code = U Microalb) 2940.0 [facility]2018-08-15 15:20:00 Test Item Value Reference Range Interpretation Comments U Prot/Creat (test code = U 6.61 1 Prot/Creat) [facility]2018-08-15 15:20:00 Test Item Value Reference Range Interpretation Comments U Creatinine (test code = U Creatinine) 55.00 [facility]2018-08-15 15:20:00 Test Item Value Reference Range Interpretation Comments U Protein (test code = U Protein) 363.8 [facility] [id number] 15:20:00 Test Item Value Reference Range Interpretation Comments ABO/RH Confirm (test code = ABO/RH O POS Confirm) [facility] AND [id number] 15:20:00 Test Item Value Reference Range Interpretation Comments UA Renal Epi (test code = UA Renal Epi) RARE [facility] AND [id number] 15:20:00 Test Item Value Reference Range Interpretation Comments UA Urobilinogen (test code = UA <=1.0 mg/dL 0.1-1.0 Urobilinogen) [facility] AND [id number] 15:20:00 Test Item Value Reference Range Interpretation Comments UA Glucose (test code = UA Glucose) 100mg/dL [facility] AND [id number] 15:20:00 Test Item Value Reference Range Interpretation Comments UA Sq Epi (test code = UA Sq Moderate /LPF Epi) [facility] AND [id number] 15:20:00 Test Item Value Reference Range Interpretation Comments UA Leuk Est (test code Small *ABN*(05/23/18 = UA Leuk Est) 10:20 AM) [facility] AND [id number] 15:20:00 Test Item Value Reference Range Interpretation Comments UA Ketones (test code = UA Negative mg/dL Ketones) [facility] AND [id number] 15:20:00 Test Item Value Reference Range Interpretation Comments UA RBC (test code = no gt See_Comment [Automa emerson message] The UA RBC) system which ge nerated this result transmit emerson reference range : <=2. The reference range was not used to interpr et this result as erinn l/abnormal. [facility] AND [id number] 15:20:00 Test Item Value Reference Range Interpretation Comments UA WBC (test code = 9 See_Comment [Automa emerson message] The UA WBC) system which ge nerated this result transmit emerson reference range : <=5. The reference range was not used to interpr et this result as erinn l/abnormal. [facility] AND [id number] 15:20:00 Test Item Value Reference Range Interpretation Comments UA Nitrite (test code Negative (05/23/18 10:20 = UA Nitrite) AM) [facility] AND [id number] 15:20:00 Test Item Value Reference Range Interpretation Comments UA Blood (test code = Trace *ABN*(05/23/18 UA Blood) 10:20 AM) [facility] AND [id number] 15:20:00 Test Item Value Reference Range Interpretation Comments UA Bili (test code = Negative *NA*(05/23/18 UA Bili) 10:20 AM) [facility] AND [id number] 15:20:00 Test Item Value Reference Range Interpretation Comments UA Mucus (test code = UA Mucus) Few /LPF [facility] AND [id number] 15:20:00 Test Item Value Reference Range Interpretation Comments UA Protein (test code = UA >=300 mg/dL Protein) [facility] AND [id number] 15:20:00 Test Item Value Reference Range Interpretation Comments UA pH (test code = UA pH) 6.5 1 5.0-8.0 [facility] AND [id number] 15:20:00 Test Item Value Reference Range Interpretation Comments UA Spec Grav (test code = UA Spec 1.008 1 Grav) [facility] AND [id number] 15:20:00 Test Item Value Reference Range Interpretation Comments UA Turbidity (test code Slight *ABN*(05/23/18 = UA Turbidity) 10:20 AM) [facility] AND [id number] 15:20:00 Test Item Value Reference Range Interpretation Comments UA Color (test code = Yellow *NA*(05/23/18 UA Color) 10:20 AM) [facility]2018-08-15 15:20:00 Test Item Value Reference Range Interpretation Comments U Microalb (test code = U Microalb) 2940.0 [facility]2018-08-15 15:20:00 Test Item Value Reference Range Interpretation Comments U Prot/Creat (test code = U 6.61 1 Prot/Creat) [facility]2018-08-15 15:20:00 Test Item Value Reference Range Interpretation Comments U Creatinine (test code = U Creatinine) 55.00 [facility]2018-08-15 15:20:00 Test Item Value Reference Range Interpretation Comments U Protein (test code = U Protein) 363.8 [facility] [id number] 14:55:00 Test Item Value Reference Range Interpretation Comments % Satur Fe (test code = % Satur Fe) 35 12-57 [facility] [id number] 14:55:00 Test Item Value Reference Range Interpretation Comments UIBC (test code = UIBC) 179 110-370 [facility] [id number] 14:55:00 Test Item Value Reference Range Interpretation Comments TIBC (test code = TIBC) 276 228-428 [facility] [id number] 14:55:00 Test Item Value Reference Range Interpretation Comments Iron (test code = Iron) 97 45-160 [facility] [id number] 14:55:00 Test Item Value Reference Range Interpretation Comments Ferritin Lvl (test code = Ferritin Lvl) 292 22-275 [facility] [id number] 14:55:00 Test Item Value Reference Range Interpretation Comments OP ABORh Int (test code = OP ABORh Int) O POS [facility] [id number] 14:55:00 Test Item Value Reference Range Interpretation Comments Phosphorus (test code = Phosphorus) 8.0 2.5-4.5 [facility]2018-08-15 14:55:00 Test Item Value Reference Range Interpretation Comments Magnesium Lvl (test code = Magnesium 2.5 1.8-2.4 Lvl) [place] [id number] 14:55:00 Test Item Value Reference Range Interpretation Comments Vitamin D, 25-OH, Total (test code = 26.3 30.0-100.0 Vitamin D, 25-OH, Total) [facility]2018-08-15 14:55:00 Test Item Value Reference Range Interpretation Comments Uric Acid (test code = Uric Acid) 3.5 3.8-8.0 [place] [id number] 14:55:00 Test Item Value Reference Range Interpretation Comments eGFR (test code = eGFR) 7 [facility]2018-08-15 14:55:00 Test Item Value Reference Range Interpretation Comments Alk Phos (test code = Alk Phos) 80 39-136 [facility]2018-08-15 14:55:00 Test Item Value Reference Range Interpretation Comments Bili Total (test code = Bili Total) 0.4 0.2-1.3 [facility]2018-08-15 14:55:00 Test Item Value Reference Range Interpretation Comments Albumin Lvl (test code = Albumin Lvl) 4.3 3.5-5.0 [facility]2018-08-15 14:55:00 Test Item Value Reference Range Interpretation Comments ALT (test code = ALT) 22 See_Comment [Auto mated message] The system which ge nerated this result transmit emerson reference range : <=65. The reference range was not used to interpr et this result as erinn l/abnormal. [place] [id number] 14:55:00 Test Item Value Reference Range Interpretation Comments Calcium Lvl (test code = Calcium Lvl) 8.8 8.5-10.5 [place] [id number] 14:55:00 Test Item Value Reference Range Interpretation Comments Total Protein (test code = Total 8.1 6.4-8.4 Protein) [facility]2018-08-15 14:55:00 Test Item Value Reference Range Interpretation Comments AST (test code = AST) 12 See_Comment [Auto mated message] The system which ge nerated this result transmit emerson reference range : <=37. The reference range was not used to interpr et this result as erinn l/abnormal. [facility] [id number] 14:55:00 Test Item Value Reference Range Interpretation Comments CO2 (test code = CO2) 26 24-32 [facility] [id number] 14:55:00 Test Item Value Reference Range Interpretation Comments Chloride Lvl (test code = Chloride Lvl) 97 95-109 [facility] [id number] 14:55:00 Test Item Value Reference Range Interpretation Comments Potassium Lvl (test code = Potassium 3.8 3.5-5.1 Lvl) [facility] [id number] 14:55:00 Test Item Value Reference Range Interpretation Comments Creatinine Lvl (test code = Creatinine 8.22 0.50-1.40 Lvl) [facility] [id number] 14:55:00 Test Item Value Reference Range Interpretation Comments Sodium Lvl (test code = Sodium Lvl) 136 135-145 [facility] [id number] 14:55:00 Test Item Value Reference Range Interpretation Comments BUN (test code = BUN) 59 7-22 [facility] [id number] 14:55:00 Test Item Value Reference Range Interpretation Comments Glucose Lvl (test code = Glucose Lvl) 98 70-99 [facility] [id number] 14:55:00 Test Item Value Reference Range Interpretation Comments Globulin (test code = Globulin) 3.8 2.7-4.2 [facility] [id number] 14:55:00 Test Item Value Reference Range Interpretation Comments A/G Ratio (test code = A/G Ratio) 1.1 1 0.7-1.6 [facility] [id number] 14:55:00 Test Item Value Reference Range Interpretation Comments AGAP (test code = AGAP) 16.8 10.0-20.0 [facility] [id number] 14:55:00 Test Item Value Reference Range Interpretation Comments B/C Ratio (test code = B/C Ratio) 7 1 6-25 [facility] [id number] 14:55:00 Test Item Value Reference Range Interpretation Comments Phencyclidine Scr (test Negative (05/23/18 code = Phencyclidine Scr) 9:55 AM) [facility] [id number] 14:55:00 Test Item Value Reference Range Interpretation Comments 6-Acetylmor Scr (test Negative (05/23/18 9:55 code = 6-Acetylmor AM) Scr) [facility] [id number] 14:55:00 Test Item Value Reference Range Interpretation Comments Opiate Scr (test code Positive *ABN*(05/23/18 = Opiate Scr) 9:55 AM) [facility] [id number] 14:55:00 Test Item Value Reference Range Interpretation Comments Methadone Scr (test Negative (05/23/18 9:55 code = Methadone Scr) AM) [facility] [id number] 14:55:00 Test Item Value Reference Range Interpretation Comments Rosa M Scr (test code = Negative (05/23/18 9:55 Rosa M Scr) AM) [facility] [id number] 14:55:00 Test Item Value Reference Range Interpretation Comments Cutoff Values (test See Note (05/23/18 9:55 code = Cutoff Values) AM) [facility] [id number] 14:55:00 Test Item Value Reference Range Interpretation Comments Cocaine Scr (test code Negative (05/23/18 9:55 = Cocaine Scr) AM) [facility] [id number] 14:55:00 Test Item Value Reference Range Interpretation Comments Amph Scr (test code = Negative (05/23/18 9:55 Amph Scr) AM) [facility] [id number] 14:55:00 Test Item Value Reference Range Interpretation Comments Cannab Scr (test code Negative (05/23/18 9:55 = Cannab Scr) AM) [facility] [id number] 14:55:00 Test Item Value Reference Range Interpretation Comments Benzodiaz Scr (test Positive *ABN*(05/23/18 code = Benzodiaz Scr) 9:55 AM) [facility] [id number] 14:55:00 Test Item Value Reference Range Interpretation Comments Opiate Qnt (test code = See Note 2(05/23/18 Opiate Qnt) 9:55 AM) [facility]2018-08-15 14:55:00 Test Item Value Reference Range Interpretation Comments Benzodiaz Qnt (test code See Note 1(05/23/18 = Benzodiaz Qnt) 9:55 AM) [id number] 14:55:00 Test Item Value Reference Range Interpretation Comments Eosinophils # (test code 0.3 See_Comment [A utomated message] The = Eosinophils #) system wh h generated this result tra nsmitted reference range : <=0.5. The reference r yared was not used to int erpret this result as normal/abnormal . [facility] [id number] 14:55:00 Test Item Value Reference Range Interpretation Comments Basophils # (test code 0.1 See_Comment [Aut omated message] The = Basophils #) system which generated this result tra nsmitted reference range : <=0.2. The reference r yared was not used to int erpret this result as normal/abnormal . [facility] [id number] 14:55:00 Test Item Value Reference Range Interpretation Comments Neutrophils # (test code = Neutrophils 3.9 1.5-8.1 #) [facility] [id number] 14:55:00 Test Item Value Reference Range Interpretation Comments Lymphocytes # (test code = Lymphocytes 1.3 1.0-5.5 #) [facility] [id number] 14:55:00 Test Item Value Reference Range Interpretation Comments Monocytes # (test code 0.5 See_Comment [Aut omated message] The = Monocytes #) system which generated this result tra nsmitted reference range : <=0.8. The reference r yared was not used to int erpret this result as normal/abnormal . [facility] C[id number] 14:55:00 Test Item Value Reference Range Interpretation Comments Basophils (test code = 0.9 See_Comment [Aut omated message] The Basophils) system which ge nerated this result tra nsmitted reference range : <=1.0. The reference r yared was not used to int erpret this result as normal/abnormal . [facility] CenterJgeabyqUKTZMPGWVZ1285-43-03 14:55:00 Test Item Value Reference Range Interpretation Comments Monocytes (test code = Monocytes) 7.7 2.0-12.0 [facility] C[id number] 14:55:00 Test Item Value Reference Range Interpretation Comments Eosinophils (test code = 4.3 See_Comment [A utomated message] The Eosinophils) system which ge nerated this result tra nsmitted reference range : <=4.0. The reference r yared was not used to int erpret this result as normal/abnormal . [facility] CenterObdrcdgCAYYPQVACU4034-16-19 14:55:00 Test Item Value Reference Range Interpretation Comments Lymphocytes (test code = Lymphocytes) 22.0 20.0-40.0 [facility] CenterMxvgbxxHWWITLUHEV2691-16-50 14:55:00 Test Item Value Reference Range Interpretation Comments Segs (test code = Segs) 65.1 45.0-75.0 [facility] Cent[id number] 14:55:00 Test Item Value Reference Range Interpretation Comments INR (test code = INR) 1.06 1 0.85-1.17 [facility] CenterDyyvcktVQPOLZUALP2620-39-70 14:55:00 Test Item Value Reference Range Interpretation Comments PT (test code = PT) 13.8 s 12.0-14.7 [facility] CenterQossdmnORLBZFBUPU7426-77-18 14:55:00 Test Item Value Reference Range Interpretation Comments PTT (test code = PTT) 35.0 s 22.9-35.8 [facility] [id number] 14:55:00 Test Item Value Reference Range Interpretation Comments RDW (test code = RDW) 18.1 11.5-14.5 [facility] CenterYkftrpeBETLVGECXT6140-70-74 14:55:00 Test Item Value Reference Range Interpretation Comments MPV (test code = MPV) 8.0 7.4-10.4 [facility] CenterAxheujfMYLLBMSRCP8605-13-31 14:55:00 Test Item Value Reference Range Interpretation Comments Platelet (test code = Platelet) 228 133-450 [facility] CenterNicmvdtEEMKTZPSJH6525-95-66 14:55:00 Test Item Value Reference Range Interpretation Comments MCHC (test code = MCHC) 33.3 32.0-36.0 [facility] CenterVdboigkAIIKCKHFUU2328-11-85 14:55:00 Test Item Value Reference Range Interpretation Comments RBC (test code = RBC) 4.54 4.70-6.10 [facility] CenterRssbrcfLVIWXCJRJU0084-29-84 14:55:00 Test Item Value Reference Range Interpretation Comments WBC (test code = WBC) 6.1 3.7-10.4 [facility] CenterFbvqfxqQLKWLMVKCB5068-81-66 14:55:00 Test Item Value Reference Range Interpretation Comments MCV (test code = MCV) 80.9 80.0-94.0 [facility] CenterAtmimnpSVFUOKLUNU7704-63-16 14:55:00 Test Item Value Reference Range Interpretation Comments Hct (test code = Hct) 36.7 42.0-54.0 [facility] CenterFtcarfrIWEJMHRKWL4392-95-60 14:55:00 Test Item Value Reference Range Interpretation Comments MCH (test code = MCH) 27.0 pg 27.0-31.0 [facility] CenterUjqdcpaIOSDBXCQHG7297-47-69 14:55:00 Test Item Value Reference Range Interpretation Comments Hgb (test code = Hgb) 12.2 14.0-18.0 [facility] SouthYbpxufwEPUTRQZANV8740-12-17 14:55:00 Test Item Value Reference Range Interpretation Comments Varicella IgG (test code = Varicella no gt IgG) [facility] SouthZweznsrACRKFAIZOV5396-60-71 14:55:00 Test Item Value Reference Range Interpretation Comments Varicella IgM (test no gt See_Comment [Automa emerson message] The code = Varicella IgM) system which generated this result tra nsmitted reference range : <=0.90. The reference r yared was not used to int erpret this result as normal/abnormal . [facility] [id number] 14:55:00 Test Item Value Reference Range Interpretation Comments Treponemal Ab (test code Non-Reactive = Treponemal Ab) *NA*(05/23/18 9:55 AM) [facility] SouthCuxvycmGCZUUSKFNW0265-09-98 14:55:00 Test Item Value Reference Range Interpretation Comments T-Spot.TB (test code Negative (05/23/18 9:55 = T-Spot.TB) AM) [facility] SouthPvbfgtlCFAJGLQMWZ2977-15-37 14:55:00 Test Item Value Reference Range Interpretation Comments Gamma % (test code = Gamma %) 18.2 11.1-18.7 [place] [id number] 14:55:00 Test Item Value Reference Range Interpretation Comments Alpha 2 % (test code = Alpha 2 %) 7.8 7.0-11.9 [facility] SouthIjjzoprQOOYRQJMFF3925-99-66 14:55:00 Test Item Value Reference Range Interpretation Comments Beta % (test code = Beta %) 9.5 7.8-13.7 [facility] SouthPmeafrpZLICTJWHBS3682-45-47 14:55:00 Test Item Value Reference Range Interpretation Comments Albumin % (test code = Albumin %) 60.9 55.8-66.1 [facility] SouthYphejbpSNPKDWERHQ2737-76-29 14:55:00 Test Item Value Reference Range Interpretation Comments Alpha 1 % (test code = Alpha 1 %) 3.6 2.8-4.9 [facility] SouthBzbwsbtCCVVPQTVJX1333-35-00 14:55:00 Test Item Value Reference Range Interpretation Comments Gamma Glob (test code = Gamma Glob) 1.47 0.71-1.57 [facility] SouthKpyiwalDRJCWFLRFS0715-92-50 14:55:00 Test Item Value Reference Range Interpretation Comments Tot Prot (SPE) (test code = Tot Prot 8.1 6.4-8.4 (SPE)) [facility] SouthCjmxserLHEIIYQKLV9205-35-68 14:55:00 Test Item Value Reference Range Interpretation Comments Beta Glob (test code = Beta Glob) 0.77 0.50-1.15 [facility] SouthFmyuhgfFGXSQXRVBF0783-56-77 14:55:00 Test Item Value Reference Range Interpretation [...] and concur with the resident's interpretation. CPT 06511-AF [facility] SouthWnouyefPLWJJGBYPM9849-10-17 14:55:00 Test Item Value Reference Range Interpretation Comments Albumin (SPE) (test code = Albumin 4.93 3.57-5.55 (SPE)) [facility] SouthLvwrdcsPHQGEKMRXB2459-90-63 14:55:00 Test Item Value Reference Range Interpretation Comments Alpha 1 Glob (test code = Alpha 1 Glob) 0.29 0.18-0.41 [facility] SouthCojcshnYCGXJBQIPX6742-80-47 14:55:00 Test Item Value Reference Range Interpretation Comments Alpha 2 Glob (test code = Alpha 2 Glob) 0.63 0.45-1.00 [facility] SouthVlpfikdZINXQTZJNA3738-08-35 14:55:00 Test Item Value Reference Range Interpretation Comments Bonney/Lambda Free Light Chains Ratio 2.18 0.26-1.65 (test code = Bonney/Lambda Free Light Chains Ratio) [facility] SouthRximdqiQAHAXLEMCJ1532-54-64 14:55:00 Test Item Value Reference Range Interpretation Comments Lambda Free Light Chains (test code = 89.85 5.70-26.30 Lambda Free Light Chains) [facility] SouthNihaegpRJZADAMATY0472-28-52 14:55:00 Test Item Value Reference Range Interpretation Comments Bonney Free Light Chains (test code = 196.11 3.30-19.40 Bonney Free Light Chains) [facility] SouthIyxxfpkCBVASQWEWR5339-35-22 14:55:00 Test Item Value Reference Range Interpretation Comments HSV 1 IgG (test code = HSV 1 IgG) no [facility]2018-08-15 14:55:00 Test Item Value Reference Range Interpretation Comments HSV 2 IgG (test code = HSV 2 IgG) no [facility]2018-08-15 14:55:00 Test Item Value Reference Range Interpretation Comments CMV IgM (test code = CMV IgM) 0.2 [facility] SouthThiwdrzXUICHRISXA6823-76-09 14:55:00 Test Item Value Reference Range Interpretation Comments CMV IgG (test code = Reactive *ABN*(05/23/18 CMV IgG) 9:55 AM) [facility] SouthOwuwarkCSCOILCHID4223-92-89 14:55:00 Test Item Value Reference Range Interpretation Comments EBV VCA IgG (test code = EBV VCA IgG) no [facility]2018-08-15 14:55:00 Test Item Value Reference Range Interpretation Comments Hep Bs Ab (test code = Hep Bs Ab) 4.5 [facility] SouthRneyniiQJYWHXSIWT3898-08-34 14:55:00 Test Item Value Reference Range Interpretation Comments Hep C Ab (test code = Negative *NA*(05/23/18 Hep C Ab) 9:55 AM) [facility] SouthVzvtubiGRXQWVIALQ0848-30-07 14:55:00 Test Item Value Reference Range Interpretation Comments EBV VCA IgM (test code = EBV VCA IgM) no [facility]2018-08-15 14:55:00 Test Item Value Reference Range Interpretation Comments Hep Bs Ag (test code Negative *NA*(05/23/18 = Hep Bs Ag) 9:55 AM) [facility] SouthVfyueevHTLZXBRTBS8064-95-23 14:55:00 Test Item Value Reference Range Interpretation Comments Hep B Core Ab (test Negative *NA*(05/23/18 code = Hep B Core Ab) 9:55 AM) [facility] SouthEtlbxdtVNSBIWPNXU6320-81-41 14:55:00 Test Item Value Reference Range Interpretation Comments HIV Ag/Ab 4th Gen Negative *NA*(05/23/18 (test code = HIV 9:55 AM) Ag/Ab 4th Gen) [facility] SouthGjpvatxUTUKHRZYGI9587-59-12 14:55:00 Test Item Value Reference Range Interpretation Comments MIKE Ser Interp The serum immunofixation (test code = MIKE electrophoresis Ser Interp) demonstrates polyclonal distribution of immunoglobulins. No monoclonal immunoglobulins are detected. The electronic medical record has been reviewed for relevant history. I have personally reviewed the test results and concur with the resident's interpretation. CPT 60070-ZY [facility] SouthZtrilcaYMAGBTJWGU4121-97-59 14:55:00 Test Item Value Reference Range Interpretation Comments MIKE Ser Pattern Diffusely staining (test code = MIKE immunoreactivity is present Ser Pattern) in the IgG, IgA, IgM, kappa, and lambda lanes in a normal polyclonal distribution. No monoclonal immunoglobulins are detected. [facility] SystemJyylqodLNIVVZ9175-69-42 14:55:00 Test Item Value Reference Range Interpretation Comments VLDL (test code = VLDL) 30 1 [facility] SystemUifnlvfKRWOAR0039-09-55 14:55:00 Test Item Value Reference Range Interpretation Comments LDL (Calculated) (test code = LDL 74 (Calculated)) [facility] SystemRqvobdyTUOMHO0108-57-79 14:55:00 Test Item Value Reference Range Interpretation Comments Chol (test code = Chol) 176 [facility] SystemIsxkebvRVIWTU8492-19-15 14:55:00 Test Item Value Reference Range Interpretation Comments HDL (test code = HDL) 72 [facility] SystemOhiyqyrIYQWNY5938-30-24 14:55:00 Test Item Value Reference Range Interpretation Comments Trig (test code = Trig) 152 [facility] SystemVbalwpeTNYKWU5900-17-23 14:55:00 Test Item Value Reference Range Interpretation Comments CHD Risk (test code = CHD Risk) 2.44 1 4.00-7.30 [facility] - [id number] 14:55:00 Test Item Value Reference Range Interpretation Comments Strongyloides Antibodies (test code Negative = Strongyloides Antibodies) [facility] CenterPARATHYROID [id number] 14:55:00 Test Item Value Reference Range Interpretation Comments PTH Intact (test code = PTH Intact) 286.0 18.4-80.1 [facility] [id number] 14:55:00 Test Item Value Reference Range Interpretation Comments PSA (test code = PSA) 0.46 See_Comment [Auto mated message] The system which ge nerated this result transmit emerson reference range : <=4.00. The reference r yared was not used to interpr et this result as erinn l/abnormal. [facility]2018-08-15 14:55:00 Test Item Value Reference Range Interpretation Comments Hgb A1C (test code = Hgb A1C) 4.9 [facility]2018-08-15 14:55:00 Test Item Value Reference Range Interpretation Comments Nicotine Lvl (test code = None Detected Nicotine Lvl) [facility]2018-08-15 14:55:00 Test Item Value Reference Range Interpretation Comments Cotinine Lvl (test code = None Detected Cotinine Lvl) [facility] [id number] 14:55:00 Test Item Value Reference Range Interpretation Comments % Satur Fe (test code = % Satur Fe) 35 12-57 [facility]2018-08-15 14:55:00 Test Item Value Reference Range Interpretation Comments UIBC (test code = UIBC) 179 110-370 [facility]2018-08-15 14:55:00 Test Item Value Reference Range Interpretation Comments TIBC (test code = TIBC) 276 228-428 [facility]2018-08-15 14:55:00 Test Item Value Reference Range Interpretation Comments Iron (test code = Iron) 97 45-160 [facility]2018-08-15 14:55:00 Test Item Value Reference Range Interpretation Comments Ferritin Lvl (test code = Ferritin Lvl) 292 22-275 [facility] BANK HOETIDR9392-50-81 14:55:00 Test Item Value Reference Range Interpretation Comments OP ABORh Int (test code = OP ABORh Int) O POS [facility]2018-08-15 14:55:00 Test Item Value Reference Range Interpretation Comments Phosphorus (test code = Phosphorus) 8.0 2.5-4.5 [facility]2018-08-15 14:55:00 Test Item Value Reference Range Interpretation Comments Magnesium Lvl (test code = Magnesium 2.5 1.8-2.4 Lvl) [facility]2018-08-15 14:55:00 Test Item Value Reference Range Interpretation Comments Vitamin D, 25-OH, Total (test code = 26.3 30.0-100.0 Vitamin D, 25-OH, Total) [place] [id number] 14:55:00 Test Item Value Reference Range Interpretation Comments Uric Acid (test code = Uric Acid) 3.5 3.8-8.0 [facility]2018-08-15 14:55:00 Test Item Value Reference Range Interpretation Comments eGFR (test code = eGFR) 7 [facility]2018-08-15 14:55:00 Test Item Value Reference Range Interpretation Comments Alk Phos (test code = Alk Phos) 80 39-136 [facility]2018-08-15 14:55:00 Test Item Value Reference Range Interpretation Comments Bili Total (test code = Bili Total) 0.4 0.2-1.3 [facility]2018-08-15 14:55:00 Test Item Value Reference Range Interpretation Comments Albumin Lvl (test code = Albumin Lvl) 4.3 3.5-5.0 [facility]2018-08-15 14:55:00 Test Item Value Reference Range Interpretation Comments ALT (test code = ALT) 22 See_Comment [Auto mated message] The system which ge nerated this result transmit emerson reference range : <=65. The reference range was not used to interpr et this result as erinn l/abnormal. [place] [id number] 14:55:00 Test Item Value Reference Range Interpretation Comments Calcium Lvl (test code = Calcium Lvl) 8.8 8.5-10.5 [place] [id number] 14:55:00 Test Item Value Reference Range Interpretation Comments Total Protein (test code = Total 8.1 6.4-8.4 Protein) [facility]2018-08-15 14:55:00 Test Item Value Reference Range Interpretation Comments AST (test code = AST) 12 See_Comment [Auto mated message] The system which ge nerated this result transmit emerson reference range : <=37. The reference range was not used to interpr et this result as erinn l/abnormal. [facility]2018-08-15 14:55:00 Test Item Value Reference Range Interpretation Comments CO2 (test code = CO2) 26 24-32 [facility]2018-08-15 14:55:00 Test Item Value Reference Range Interpretation Comments Chloride Lvl (test code = Chloride Lvl) 97 95-109 [facility]2018-08-15 14:55:00 Test Item Value Reference Range Interpretation Comments Potassium Lvl (test code = Potassium 3.8 3.5-5.1 Lvl) [facility]2018-08-15 14:55:00 Test Item Value Reference Range Interpretation Comments Creatinine Lvl (test code = Creatinine 8.22 0.50-1.40 Lvl) [facility]2018-08-15 14:55:00 Test Item Value Reference Range Interpretation Comments Sodium Lvl (test code = Sodium Lvl) 136 135-145 [facility]2018-08-15 14:55:00 Test Item Value Reference Range Interpretation Comments BUN (test code = BUN) 59 7-22 [facility]2018-08-15 14:55:00 Test Item Value Reference Range Interpretation Comments Glucose Lvl (test code = Glucose Lvl) 98 70-99 [facility]2018-08-15 14:55:00 Test Item Value Reference Range Interpretation Comments Globulin (test code = Globulin) 3.8 2.7-4.2 [place] [id number] 14:55:00 Test Item Value Reference Range Interpretation Comments A/G Ratio (test code = A/G Ratio) 1.1 1 0.7-1.6 [facility]2018-08-15 14:55:00 Test Item Value Reference Range Interpretation Comments AGAP (test code = AGAP) 16.8 10.0-20.0 [place] [id number] 14:55:00 Test Item Value Reference Range Interpretation Comments B/C Ratio (test code = B/C Ratio) 7 1 6-25 [facility] [id number] 14:55:00 Test Item Value Reference Range Interpretation Comments Phencyclidine Scr (test Negative (05/23/18 code = Phencyclidine Scr) 9:55 AM) [facility] [id number] 14:55:00 Test Item Value Reference Range Interpretation Comments 6-Acetylmor Scr (test Negative (05/23/18 9:55 code = 6-Acetylmor AM) Scr) [facility] [id number] 14:55:00 Test Item Value Reference Range Interpretation Comments Opiate Scr (test code Positive *ABN*(05/23/18 = Opiate Scr) 9:55 AM) [facility] [id number] 14:55:00 Test Item Value Reference Range Interpretation Comments Methadone Scr (test Negative (05/23/18 9:55 code = Methadone Scr) AM) [facility] [id number] 14:55:00 Test Item Value Reference Range Interpretation Comments Rosa M Scr (test code = Negative (05/23/18 9:55 Rosa M Scr) AM) [facility] [id number] 14:55:00 Test Item Value Reference Range Interpretation Comments Cutoff Values (test See Note (05/23/18 9:55 code = Cutoff Values) AM) [facility] [id number] 14:55:00 Test Item Value Reference Range Interpretation Comments Cocaine Scr (test code Negative (05/23/18 9:55 = Cocaine Scr) AM) [facility] [id number] 14:55:00 Test Item Value Reference Range Interpretation Comments Amph Scr (test code = Negative (05/23/18 9:55 Amph Scr) AM) [facility] [id number] 14:55:00 Test Item Value Reference Range Interpretation Comments Cannab Scr (test code Negative (05/23/18 9:55 = Cannab Scr) AM) [facility] [id number] 14:55:00 Test Item Value Reference Range Interpretation Comments Benzodiaz Scr (test Positive *ABN*(05/23/18 code = Benzodiaz Scr) 9:55 AM) [facility] [id number] 14:55:00 Test Item Value Reference Range Interpretation Comments Opiate Qnt (test code = See Note 2(05/23/18 Opiate Qnt) 9:55 AM) [facility]2018-08-15 14:55:00 Test Item Value Reference Range Interpretation Comments Benzodiaz Qnt (test code See Note 1(05/23/18 = Benzodiaz Qnt) 9:55 AM) [facility]OprrlrvALJFWSZCEU9821-57-95 14:55:00 Test Item Value Reference Range Interpretation Comments Eosinophils # (test code 0.3 See_Comment [A utomated message] The = Eosinophils #) system whic h generated this result tra nsmitted reference range : <=0.5. The reference r yared was not used to int erpret this result as normal/abnormal . [facility] CenterZqszbrsYLBALOHQGG7951-81-87 14:55:00 Test Item Value Reference Range Interpretation Comments Basophils # (test code 0.1 See_Comment [Aut omated message] The = Basophils #) system which generated this result tra nsmitted reference range : <=0.2. The reference r yared was not used to int erpret this result as normal/abnormal . [facility] CenterOvkckegWQJCBDNWEZ6590-37-06 14:55:00 Test Item Value Reference Range Interpretation Comments Neutrophils # (test code = Neutrophils 3.9 1.5-8.1 #) [facility] CenterVfwnkelYFMTFHRXUB4300-57-01 14:55:00 Test Item Value Reference Range Interpretation Comments Lymphocytes # (test code = Lymphocytes 1.3 1.0-5.5 #) [facility] CenterAzjqtzdSAEUVKDXAV4549-87-37 14:55:00 Test Item Value Reference Range Interpretation Comments Monocytes # (test code 0.5 See_Comment [Aut omated message] The = Monocytes #) system which generated this result tra nsmitted reference range : <=0.8. The reference r yared was not used to int erpret this result as normal/abnormal . [facility] CenterDscgdbrSBXMKUCJAE6994-34-82 14:55:00 Test Item Value Reference Range Interpretation Comments Basophils (test code = 0.9 See_Comment [Aut omated message] The Basophils) system which ge nerated this result tra nsmitted reference range : <=1.0. The reference r yared was not used to int erpret this result as normal/abnormal . [facility] CenterFlvzygjYJNGXWMJIN1946-49-16 14:55:00 Test Item Value Reference Range Interpretation Comments Monocytes (test code = Monocytes) 7.7 2.0-12.0 [facility] CenterQgxtbjuHGFLFWTAMM3443-82-69 14:55:00 Test Item Value Reference Range Interpretation Comments Eosinophils (test code = 4.3 See_Comment [A utomated message] The Eosinophils) system which ge nerated this result tra nsmitted reference range : <=4.0. The reference r yared was not used to int erpret this result as normal/abnormal . [facility] CenterLugegwhLCNVXDQVMO7884-35-88 14:55:00 Test Item Value Reference Range Interpretation Comments Lymphocytes (test code = Lymphocytes) 22.0 20.0-40.0 [facility] CenterOwrrxnbPGTKZSPTAR0797-55-56 14:55:00 Test Item Value Reference Range Interpretation Comments Segs (test code = Segs) 65.1 45.0-75.0 [facility] CenterWzeeiluDQMTQFEDFD2354-89-15 14:55:00 Test Item Value Reference Range Interpretation Comments INR (test code = INR) 1.06 1 0.85-1.17 [facility] CenterOgfoqnzLDUXKVTLTV4017-35-16 14:55:00 Test Item Value Reference Range Interpretation Comments PT (test code = PT) 13.8 s 12.0-14.7 [facility] CenterSaketuwQCYKGAILEM3082-07-14 14:55:00 Test Item Value Reference Range Interpretation Comments PTT (test code = PTT) 35.0 s 22.9-35.8 [facility] CenterKulvypzAPWKBSGIYO1552-29-40 14:55:00 Test Item Value Reference Range Interpretation Comments RDW (test code = RDW) 18.1 11.5-14.5 [facility] CenterOzcppajYXVYOXUTIO2524-85-54 14:55:00 Test Item Value Reference Range Interpretation Comments MPV (test code = MPV) 8.0 7.4-10.4 [facility] CenterYoegbpnLAUEZNAIXN0839-86-34 14:55:00 Test Item Value Reference Range Interpretation Comments Platelet (test code = Platelet) 228 133-450 [facility] CenterHnrmrouUVUJFXBYZZ3830-37-75 14:55:00 Test Item Value Reference Range Interpretation Comments MCHC (test code = MCHC) 33.3 32.0-36.0 [facility] CenterBcugzdiNQUOHXMCRO9176-84-64 14:55:00 Test Item Value Reference Range Interpretation Comments RBC (test code = RBC) 4.54 4.70-6.10 [facility] CenterIklvnipHFHNPESGHQ0840-97-69 14:55:00 Test Item Value Reference Range Interpretation Comments WBC (test code = WBC) 6.1 3.7-10.4 [facility] CenterFjdbhqvBYKUXVXPVR3286-45-97 14:55:00 Test Item Value Reference Range Interpretation Comments MCV (test code = MCV) 80.9 80.0-94.0 [facility] CenterXzijsusUHXDYTDQLY8052-86-96 14:55:00 Test Item Value Reference Range Interpretation Comments Hct (test code = Hct) 36.7 42.0-54.0 [facility] CenterWovnrfqCWKOCBIJHP4557-51-33 14:55:00 Test Item Value Reference Range Interpretation Comments MCH (test code = MCH) 27.0 pg 27.0-31.0 [facility] CenterDujtpgrLKVOVLZFZR8205-36-94 14:55:00 Test Item Value Reference Range Interpretation Comments Hgb (test code = Hgb) 12.2 14.0-18.0 [facility] SouthVnoqinsUNQPARSCBB2661-76-80 14:55:00 Test Item Value Reference Range Interpretation Comments Varicella IgG (test code = Varicella no gt IgG) [facility] SouthXznttuwARHHFTTUZC1082-67-22 14:55:00 Test Item Value Reference Range Interpretation Comments Varicella IgM (test no gt See_Comment [Automa emerson message] The code = Varicella IgM) system which generated this result tra nsmitted reference range : <=0.90. The reference r yared was not used to int erpret this result as normal/abnormal . [facility] SouthWppczfbBLMAYLFPWV9887-23-28 14:55:00 Test Item Value Reference Range Interpretation Comments Treponemal Ab (test code Non-Reactive = Treponemal Ab) *NA*(05/23/18 9:55 AM) [facility] SouthVdbbxjhWYSQJHGVCF7139-25-43 14:55:00 Test Item Value Reference Range Interpretation Comments T-Spot.TB (test code Negative (05/23/18 9:55 = T-Spot.TB) AM) [facility] SouthIjxcpqrTWFTSTBURT9952-13-52 14:55:00 Test Item Value Reference Range Interpretation Comments Gamma % (test code = Gamma %) 18.2 11.1-18.7 [facility] SouthZdmjjtxMLUEUAXUHU7807-58-00 14:55:00 Test Item Value Reference Range Interpretation Comments Alpha 2 % (test code = Alpha 2 %) 7.8 7.0-11.9 [facility] SouthVygtgfnHMSTBCWRQE2554-76-41 14:55:00 Test Item Value Reference Range Interpretation Comments Beta % (test code = Beta %) 9.5 7.8-13.7 [facility] SouthPfgpuasSQJJFASECH6412-20-75 14:55:00 Test Item Value Reference Range Interpretation Comments Albumin % (test code = Albumin %) 60.9 55.8-66.1 [facility] SouthUwsmkocCSRBUAYDBQ8382-92-61 14:55:00 Test Item Value Reference Range Interpretation Comments Alpha 1 % (test code = Alpha 1 %) 3.6 2.8-4.9 [facility] SouthIkcltlnRTIIYDIZQC1506-84-75 14:55:00 Test Item Value Reference Range Interpretation Comments Gamma Glob (test code = Gamma Glob) 1.47 0.71-1.57 [facility] SouthStmuabdGHQCJBZCPF8844-42-61 14:55:00 Test Item Value Reference Range Interpretation Comments Tot Prot (SPE) (test code = Tot Prot 8.1 6.4-8.4 (SPE)) [facility] SouthDuqhyytTPBBSMVLZK1894-18-39 14:55:00 Test Item Value Reference Range Interpretation Comments Beta Glob (test code = Beta Glob) 0.77 0.50-1.15 [facility] SouthNdetdriNYXGRUOYYG3884-88-30 14:55:00 Test Item Value Reference Range Interpretation [...] and concur with the resident's interpretation. CPT 42550-MD [facility] SouthIysaezsVUBYMBIWCU5172-18-64 14:55:00 Test Item Value Reference Range Interpretation Comments Albumin (SPE) (test code = Albumin 4.93 3.57-5.55 (SPE)) [facility] SouthTnpqdqrPQGSKUDCXM6188-61-45 14:55:00 Test Item Value Reference Range Interpretation Comments Alpha 1 Glob (test code = Alpha 1 Glob) 0.29 0.18-0.41 [facility] SouthUmyejydQRVGGLMYLC8834-88-28 14:55:00 Test Item Value Reference Range Interpretation Comments Alpha 2 Glob (test code = Alpha 2 Glob) 0.63 0.45-1.00 [facility] SouthCakiyiiHPSAMWQNKS7426-15-81 14:55:00 Test Item Value Reference Range Interpretation Comments Bonney/Lambda Free Light Chains Ratio 2.18 0.26-1.65 (test code = Bonney/Lambda Free Light Chains Ratio) [facility] SouthIddttotWZPEBCZWVA7991-18-68 14:55:00 Test Item Value Reference Range Interpretation Comments Lambda Free Light Chains (test code = 89.85 5.70-26.30 Lambda Free Light Chains) [facility] SouthCpdfvhrWTEVCAROQK1433-84-56 14:55:00 Test Item Value Reference Range Interpretation Comments Bonney Free Light Chains (test code = 196.11 3.30-19.40 Bonney Free Light Chains) [facility] SouthUsdmcbsDHCCOGSXXS0660-62-35 14:55:00 Test Item Value Reference Range Interpretation Comments HSV 1 IgG (test code = HSV 1 IgG) no gt [facility] SouthBcougefSMWBFENOXG0862-45-06 14:55:00 Test Item Value Reference Range Interpretation Comments HSV 2 IgG (test code = HSV 2 IgG) [facility] gt [facility] CenterFrtpejkETRNIKQWLP0075-74-56 14:55:00 Test Item Value Reference Range Interpretation Comments CMV IgM (test code = CMV IgM) 0.2 [facility] SouthTqrmvtdQVXUGHZQSL5228-10-18 14:55:00 Test Item Value Reference Range Interpretation Comments CMV IgG (test code = Reactive *ABN*(05/23/18 CMV IgG) 9:55 AM) [facility] SouthHqtgerwDOGCJGJWTJ4543-32-39 14:55:00 Test Item Value Reference Range Interpretation Comments EBV VCA IgG (test code = EBV VCA IgG) no gt [facility] SouthKxnodguNEROWNQZWT0197-79-02 14:55:00 Test Item Value Reference Range Interpretation Comments Hep Bs Ab (test code = Hep Bs Ab) 4.5 [facility] SouthQpqkkfpLZYRZBRNBM1634-49-04 14:55:00 Test Item Value Reference Range Interpretation Comments Hep C Ab (test code = Negative *NA*(05/23/18 Hep C Ab) 9:55 AM) [facility] SouthVknxwsgKLFPVPZJIV0361-60-41 14:55:00 Test Item Value Reference Range Interpretation Comments EBV VCA IgM (test code = EBV VCA IgM) no gt [facility] CenterZfdxxlyWMFONRRPIU7447-81-11 14:55:00 Test Item Value Reference Range Interpretation Comments Hep Bs Ag (test code Negative *NA*(05/23/18 = Hep Bs Ag) 9:55 AM) [facility] SouthFwrfpowWTQSKEGOAL5683-33-99 14:55:00 Test Item Value Reference Range Interpretation Comments Hep B Core Ab (test Negative *NA*(05/23/18 code = Hep B Core Ab) 9:55 AM) [facility] SouthKemfhilTXIYRBNCVO4442-55-62 14:55:00 Test Item Value Reference Range Interpretation Comments HIV Ag/Ab 4th Gen Negative *NA*(05/23/18 (test code = HIV 9:55 AM) Ag/Ab 4th Gen) [facility] SouthUmtqklnPBACFQFXBX4515-54-73 14:55:00 Test Item Value Reference Range Interpretation Comments MIKE Ser Interp The serum immunofixation (test code = MIKE electrophoresis Ser Interp) demonstrates polyclonal distribution of immunoglobulins. No monoclonal immunoglobulins are detected. The electronic medical record has been reviewed for relevant history. I have personally reviewed the test results and concur with the resident's interpretation. CPT 84628-PL [facility] SouthWrsglvoHVIQCDPOLN5093-08-85 14:55:00 Test Item Value Reference Range Interpretation Comments MIKE Ser Pattern Diffusely staining (test code = MIKE immunoreactivity is present Ser Pattern) in the IgG, IgA, IgM, kappa, and lambda lanes in a normal polyclonal distribution. No monoclonal immunoglobulins are detected. [facility] SystemIhwujtaMVDWQN8395-36-69 14:55:00 Test Item Value Reference Range Interpretation Comments VLDL (test code = VLDL) [address] [facility] CenterYsnfjhyUAALJK1664-12-45 14:55:00 Test Item Value Reference Range Interpretation Comments LDL (Calculated) (test code = LDL 74 (Calculated)) [facility] CenterVtppoiiCBUOFK4628-30-98 14:55:00 Test Item Value Reference Range Interpretation Comments Chol (test code = Chol) 176 [facility] CenterDwbagyxLZQHZO0617-19-99 14:55:00 Test Item Value Reference Range Interpretation Comments HDL (test code = HDL) 72 [facility] CenterCfxpusqPHVJKP7474-08-89 14:55:00 Test Item Value Reference Range Interpretation Comments Trig (test code = Trig) 152 [facility] CenterRcsmvnxPIQYWB3612-85-00 14:55:00 Test Item Value Reference Range Interpretation Comments CHD Risk (test code = CHD Risk) 2.44 1 4.00-7.30 [facility] CenterPARASITOLOGY - [id number] 14:55:00 Test Item Value Reference Range Interpretation Comments Strongyloides Antibodies (test code Negative = Strongyloides Antibodies) [facility] CenterPARATHYROID FZMZWRG9382-61-27 14:55:00 Test Item Value Reference Range Interpretation Comments PTH Intact (test code = PTH Intact) 286.0 18.4-80.1 [facility] APAEWDMYQ6372-33-58 14:55:00 Test Item Value Reference Range Interpretation Comments PSA (test code = PSA) 0.46 See_Comment [Auto mated message] The system which ge nerated this result transmit emerson reference range : <=4.00. The reference r yared was not used to interpr et this result as erinn l/abnormal. [facility] YUGXLFQLD7622-15-38 14:55:00 Test Item Value Reference Range Interpretation Comments Hgb A1C (test code = Hgb A1C) 4.9 [facility] KDLIWFCWO2006-51-35 14:55:00 Test Item Value Reference Range Interpretation Comments Nicotine Lvl (test code = None Detected Nicotine Lvl) [facility] AKWALSSGW1812-48-56 14:55:00 Test Item Value Reference Range Interpretation Comments Cotinine Lvl (test code = None Detected Cotinine Lvl) [facility] BJXQCXJ9659-44-30 12:03:00 Test Item Value Reference Range Interpretation Comments Troponin-I (test code 0.04 See_Comment [Auto mated message] The = Troponin-I) system which g enerated this result transmit emerson reference range : <=0.40. The reference r yared was not used to interpr et this result as erinn l/abnormal. [facility] [id number] 12:03:00 Test Item Value Reference Range Interpretation Comments Total CK (test code = Total CK) 26 12-191 [facility] [id number] 12:03:00 Test Item Value Reference Range Interpretation Comments Troponin-I (test code 0.04 See_Comment [Auto mated message] The = Troponin-I) system which g enerated this result transmit emerson reference range : <=0.40. The reference r yared was not used to interpr et this result as erinn l/abnormal. [facility] [id number] 12:03:00 Test Item Value Reference Range Interpretation Comments Total CK (test code = Total CK) 26 191 [facility] [id number] 07:54:00 Test Item Value Reference Range Interpretation Comments Troponin-I (test code 0.02 See_Comment [Auto mated message] The = Troponin-I) system which g enerated this result transmit emerson reference range : <=0.40. The reference r yared was not used to interpr et this result as erinn l/abnormal. [facility] [employer]2018-07-08 07:54:00 Test Item Value Reference Range Interpretation Comments Total CK (test code = Total CK) 31 191 [facility] [employer] [id number] 07:54:00 Test Item Value Reference Range Interpretation Comments Magnesium Lvl (test code = Magnesium 1.9 1.8-2.4 Lvl) [facility] [employer] [id number] 07:54:00 Test Item Value Reference Range Interpretation Comments B/C Ratio (test code = B/C Ratio) 6 1 6-25 [facility] [id number] 07:54:00 Test Item Value Reference Range Interpretation Comments Albumin Lvl (test code = Albumin Lvl) 3.3 3.5-5.0 [facility] [employer] [id number] 07:54:00 Test Item Value Reference Range Interpretation Comments A/G Ratio (test code = A/G Ratio) 0.9 1 0.7-1.6 [facility] [employer] [id number] 07:54:00 Test Item Value Reference Range Interpretation Comments Total Protein (test code = Total 7.1 6.4-8.4 Protein) [facility] [id number] 07:54:00 Test Item Value Reference Range Interpretation Comments Globulin (test code = Globulin) 3.8 2.7-4.2 [facility] [employer] [id number] 07:54:00 Test Item Value Reference Range Interpretation Comments ALT (test code = ALT) 18 See_Comment [Auto mated message] The system which ge nerated this result transmit emerson reference range : <=65. The reference range was not used to interpr et this result as erinn l/abnormal. [facility]2018-07-08 07:54:00 Test Item Value Reference Range Interpretation Comments AST (test code = AST) 14 See_Comment [Auto mated message] The system which ge nerated this result transmit emerson reference range : <=37. The reference range was not used to interpr et this result as erinn l/abnormal. [facility]2018-07-08 07:54:00 Test Item Value Reference Range Interpretation Comments Alk Phos (test code = Alk Phos) 82 39-136 [facility]2018-07-08 07:54:00 Test Item Value Reference Range Interpretation Comments Bili Total (test code = Bili Total) 0.5 0.2-1.3 [facility]2018-07-08 07:54:00 Test Item Value Reference Range Interpretation Comments eGFR (test code = eGFR) 10 [facility]2018-07-08 07:54:00 Test Item Value Reference Range Interpretation Comments Potassium Lvl (test code = Potassium 3.2 3.5-5.1 Lvl) [facility]2018-07-08 07:54:00 Test Item Value Reference Range Interpretation Comments Chloride Lvl (test code = Chloride Lvl) 103 95-109 [facility]2018-07-08 07:54:00 Test Item Value Reference Range Interpretation Comments Glucose Lvl (test code = Glucose Lvl) 95 70-99 [facility]2018-07-08 07:54:00 Test Item Value Reference Range Interpretation Comments BUN (test code = BUN) 34 7-22 [facility]2018-07-08 07:54:00 Test Item Value Reference Range Interpretation Comments Creatinine Lvl (test code = Creatinine 5.83 0.50-1.40 Lvl) [facility]2018-07-08 07:54:00 Test Item Value Reference Range Interpretation Comments Sodium Lvl (test code = Sodium Lvl) 138 135-145 [facility]2018-07-08 07:54:00 Test Item Value Reference Range Interpretation Comments CO2 (test code = CO2) 23 24-32 [facility]2018-07-08 07:54:00 Test Item Value Reference Range Interpretation Comments AGAP (test code = AGAP) 15.2 10.0-20.0 [facility]2018-07-08 07:54:00 Test Item Value Reference Range Interpretation Comments Calcium Lvl (test code = Calcium Lvl) 8.5 8.5-10.5 [facility]2018-07-08 07:54:00 Test Item Value Reference Range Interpretation Comments Phosphorus (test code = Phosphorus) 4.2 2.5-4.5 [facility]EbiwgppFGCGHVHXME7281-48-17 07:54:00 Test Item Value Reference Range Interpretation Comments Lymphocytes # (test code = Lymphocytes 1.5 1.0-5.5 #) [facility] CenterUqjptwkUZBSVSGCGE1881-71-03 07:54:00 Test Item Value Reference Range Interpretation Comments Monocytes # (test code 0.5 See_Comment [Aut omated message] The = Monocytes #) system which generated this result tra nsmitted reference range : <=0.8. The reference r yared was not used to int erpret this result as normal/abnormal . [facility] CenterPnomnmaHUYDMWTAPC3928-58-83 07:54:00 Test Item Value Reference Range Interpretation Comments Basophils (test code = 1.0 See_Comment [Aut omated message] The Basophils) system which ge nerated this result tra nsmitted reference range : <=1.0. The reference r yared was not used to int erpret this result as normal/abnormal . [facility] CenterOmmpwjyDVPQFVYISJ5188-70-67 07:54:00 Test Item Value Reference Range Interpretation Comments Segs-Bands # (test code = Segs-Bands #) 3.5 1.5-8.1 [facility] CenterXlylbyeKUSPTDWJDF3241-08-83 07:54:00 Test Item Value Reference Range Interpretation Comments Basophils # (test code 0.1 See_Comment [Aut omated message] The = Basophils #) system which generated this result tra nsmitted reference range : <=0.2. The reference r yared was not used to int erpret this result as normal/abnormal . [facility] CenterAgauyumTAEWJOFYGF4644-79-16 07:54:00 Test Item Value Reference Range Interpretation Comments Eosinophils # (test code 0.2 See_Comment [A utomated message] The = Eosinophils #) system whic h generated this result tra nsmitted reference range : <=0.5. The reference r yared was not used to int erpret this result as normal/abnormal . [facility] CenterCrgwmsrKFJZOUHYFB5480-21-55 07:54:00 Test Item Value Reference Range Interpretation Comments Lymphocytes (test code = Lymphocytes) 26.7 20.0-40.0 [facility] CenterClysfevFJPHSGKTTB0201-25-68 07:54:00 Test Item Value Reference Range Interpretation Comments Segs (test code = Segs) 61.0 45.0-75.0 [facility] CenterWfxxkzyVGTWQIYIYI3940-14-22 07:54:00 Test Item Value Reference Range Interpretation Comments Monocytes (test code = Monocytes) 8.0 2.0-12.0 [facility] CenterMhmzjdiBEJOPZOMNI9050-68-88 07:54:00 Test Item Value Reference Range Interpretation Comments Eosinophils (test code = 3.3 See_Comment [A utomated message] The Eosinophils) system which ge nerated this result tra nsmitted reference range : <=4.0. The reference r yared was not used to int erpret this result as normal/abnormal . [facility] CenterZovjbveYQUJMJGISZ9623-84-16 07:54:00 Test Item Value Reference Range Interpretation Comments WBC (test code = WBC) 5.7 3.7-10.4 [facility] CenterPlpfnljDLUBWXIUSS8483-60-08 07:54:00 Test Item Value Reference Range Interpretation Comments RBC (test code = RBC) 4.48 4.70-6.10 [facility] CenterXjxlsudHWJFSBUPZY6308-48-46 07:54:00 Test Item Value Reference Range Interpretation Comments RDW (test code = RDW) 17.7 11.5-14.5 [facility] CenterQwuykvwRSGFVZZQIE2386-50-28 07:54:00 Test Item Value Reference Range Interpretation Comments Platelet (test code = Platelet) 215 133-450 [facility] CenterXecejviMNJYYDQPUN9813-40-34 07:54:00 Test Item Value Reference Range Interpretation Comments MPV (test code = MPV) 7.2 7.4-10.4 [facility] CenterXmqvwotZUVJSPLGCU8012-21-90 07:54:00 Test Item Value Reference Range Interpretation Comments Hgb (test code = Hgb) 11.6 14.0-18.0 [facility] CenterAezmlxaNPFDNHPYQB3905-71-38 07:54:00 Test Item Value Reference Range Interpretation Comments Hct (test code = Hct) 35.5 42.0-54.0 [facility] CenterXkojeqmKKIANISMEL8399-41-27 07:54:00 Test Item Value Reference Range Interpretation Comments MCHC (test code = MCHC) 32.6 32.0-36.0 [facility] UatjrasFRVCAENYGJ0839-93-17 07:54:00 Test Item Value Reference Range Interpretation Comments MCV (test code = MCV) 79.2 80.0-94.0 [facility] XuezaypSGZEWALEUL3057-30-56 07:54:00 Test Item Value Reference Range Interpretation Comments MCH (test code = MCH) 25.8 pg 27.0-31.0 [facility] [employer] [id number] 07:54:00 Test Item Value Reference Range Interpretation Comments Troponin-I (test code 0.02 See_Comment [Auto mated message] The = Troponin-I) system which g enerated this result transmit emerson reference range : <=0.40. The reference r yared was not used to interpr et this result as erinn l/abnormal. [facility] [employer]2018-07-08 07:54:00 Test Item Value Reference Range Interpretation Comments Total CK (test code = Total CK) 31 12-191 [facility] [employer] [id number] 07:54:00 Test Item Value Reference Range Interpretation Comments Magnesium Lvl (test code = Magnesium 1.9 1.8-2.4 Lvl) [facility] [employer] [id number] 07:54:00 Test Item Value Reference Range Interpretation Comments B/C Ratio (test code = B/C Ratio) 6 1 6-25 [facility] [employer] [id number] 07:54:00 Test Item Value Reference Range Interpretation Comments Albumin Lvl (test code = Albumin Lvl) 3.3 3.5-5.0 [facility] [employer] [id number] 07:54:00 Test Item Value Reference Range Interpretation Comments A/G Ratio (test code = A/G Ratio) 0.9 1 0.7-1.6 [facility] [employer] [id number] 07:54:00 Test Item Value Reference Range Interpretation Comments Total Protein (test code = Total 7.1 6.4-8.4 Protein) [facility] [employer] [id number] 07:54:00 Test Item Value Reference Range Interpretation Comments Globulin (test code = Globulin) 3.8 2.7-4.2 [facility]2018-07-08 07:54:00 Test Item Value Reference Range Interpretation Comments ALT (test code = ALT) 18 See_Comment [Auto mated message] The system which ge nerated this result transmit emerson reference range : <=65. The reference range was not used to interpr et this result as erinn l/abnormal. [facility] CenterScribble PressUNC HEALTHDKSZE8297-03-36 07:54:00 Test Item Value Reference Range Interpretation Comments AST (test code = AST) 14 See_Comment [Auto mated message] The system which ge nerated this result transmit emerson reference range : <=37. The reference range was not used to interpr et this result as erinn l/abnormal. [facility]2018-07-08 07:54:00 Test Item Value Reference Range Interpretation Comments Alk Phos (test code = Alk Phos) 82 39-136 [facility]2018-07-08 07:54:00 Test Item Value Reference Range Interpretation Comments Bili Total (test code = Bili Total) 0.5 0.2-1.3 [facility]2018-07-08 07:54:00 Test Item Value Reference Range Interpretation Comments eGFR (test code = eGFR) 10 [facility] CenterDurect [facility] [id number] 07:54:00 Test Item Value Reference Range Interpretation Comments Potassium Lvl (test code = Potassium 3.2 3.5-5.1 Lvl) [facility]2018-07-08 07:54:00 Test Item Value Reference Range Interpretation Comments Chloride Lvl (test code = Chloride Lvl) 103 95-109 [facility]2018-07-08 07:54:00 Test Item Value Reference Range Interpretation Comments Glucose Lvl (test code = Glucose Lvl) 95 70-99 [facility] CenterScribble PressUNC [id number] 07:54:00 Test Item Value Reference Range Interpretation Comments BUN (test code = BUN) 34 7-22 [facility]2018-07-08 07:54:00 Test Item Value Reference Range Interpretation Comments Creatinine Lvl (test code = Creatinine 5.83 0.50-1.40 Lvl) [facility]2018-07-08 07:54:00 Test Item Value Reference Range Interpretation Comments Sodium Lvl (test code = Sodium Lvl) 138 135-145 [facility]2018-07-08 07:54:00 Test Item Value Reference Range Interpretation Comments CO2 (test code = CO2) 23 24-32 [facility]2018-07-08 07:54:00 Test Item Value Reference Range Interpretation Comments AGAP (test code = AGAP) 15.2 10.0-20.0 [facility]2018-07-08 07:54:00 Test Item Value Reference Range Interpretation Comments Calcium Lvl (test code = Calcium Lvl) 8.5 8.5-10.5 [facility]2018-07-08 07:54:00 Test Item Value Reference Range Interpretation Comments Phosphorus (test code = Phosphorus) 4.2 2.5-4.5 [facility] CenterLctmjrlPQLRSXKKHB9024-71-01 07:54:00 Test Item Value Reference Range Interpretation Comments Lymphocytes # (test code = Lymphocytes 1.5 1.0-5.5 #) [facility] CenterFwfdgbxOXFYGKQPWK9540-80-24 07:54:00 Test Item Value Reference Range Interpretation Comments Monocytes # (test code 0.5 See_Comment [Aut omated message] The = Monocytes #) system which generated this result tra nsmitted reference range : <=0.8. The reference r yared was not used to int erpret this result as normal/abnormal . [facility] CenterViugevtADVUIHJUYS6794-03-02 07:54:00 Test Item Value Reference Range Interpretation Comments Basophils (test code = 1.0 See_Comment [Aut omated message] The Basophils) system which ge nerated this result tra nsmitted reference range : <=1.0. The reference r yared was not used to int erpret this result as normal/abnormal . [facility] CenterFkwmdwbCVWJLOISMS8476-23-25 07:54:00 Test Item Value Reference Range Interpretation Comments Segs-Bands # (test code = Segs-Bands #) 3.5 1.5-8.1 [facility] CenterNmekuzoFQBWHGFSIF2485-31-32 07:54:00 Test Item Value Reference Range Interpretation Comments Basophils # (test code 0.1 See_Comment [Aut omated message] The = Basophils #) system which generated this result tra nsmitted reference range : <=0.2. The reference r yared was not used to int erpret this result as normal/abnormal . [facility] CenterFbpcfduFVOTTEKJXK2529-59-52 07:54:00 Test Item Value Reference Range Interpretation Comments Eosinophils # (test code 0.2 See_Comment [A utomated message] The = Eosinophils #) system whic h generated this result tra nsmitted reference range : <=0.5. The reference r yared was not used to int erpret this result as normal/abnormal . [facility] CenterTmhkvzbEULJBQEJLH9444-36-19 07:54:00 Test Item Value Reference Range Interpretation Comments Lymphocytes (test code = Lymphocytes) 26.7 20.0-40.0 [facility] CenterKrjgzzaDPZPALCFLL7202-47-34 07:54:00 Test Item Value Reference Range Interpretation Comments Segs (test code = Segs) 61.0 45.0-75.0 [facility] CenterGouknepBBHRWZHUVS9005-24-64 07:54:00 Test Item Value Reference Range Interpretation Comments Monocytes (test code = Monocytes) 8.0 2.0-12.0 [facility] CenterLcqjzvhVWKAVAFYAX3364-80-67 07:54:00 Test Item Value Reference Range Interpretation Comments Eosinophils (test code = 3.3 See_Comment [A utomated message] The Eosinophils) system which ge nerated this result tra nsmitted reference range : <=4.0. The reference r yared was not used to int erpret this result as normal/abnormal . [facility] CenterKjytrpmBUPRHTQYGG5193-83-85 07:54:00 Test Item Value Reference Range Interpretation Comments WBC (test code = WBC) 5.7 3.7-10.4 [facility] CenterHbocyalRQSDCGZRBG5532-75-35 07:54:00 Test Item Value Reference Range Interpretation Comments RBC (test code = RBC) 4.48 4.70-6.10 [facility] CenterEalblsaHPTOUTYKNG5669-80-29 07:54:00 Test Item Value Reference Range Interpretation Comments RDW (test code = RDW) 17.7 11.5-14.5 [facility] CenterSxxrjpsIBPMERWPGC7062-74-11 07:54:00 Test Item Value Reference Range Interpretation Comments Platelet (test code = Platelet) 215 133-450 [facility] CenterLulnoxwLSCORCXBMK3897-13-87 07:54:00 Test Item Value Reference Range Interpretation Comments MPV (test code = MPV) 7.2 7.4-10.4 [facility] CenterTxioclwZQQJDENSAA6881-44-91 07:54:00 Test Item Value Reference Range Interpretation Comments Hgb (test code = Hgb) 11.6 14.0-18.0 [facility] LlqnrhlAVNSLCDIYA1286-58-73 07:54:00 Test Item Value Reference Range Interpretation Comments Hct (test code = Hct) 35.5 42.0-54.0 [facility] CenterPbokngaDTIQOJLRRA0109-36-72 07:54:00 Test Item Value Reference Range Interpretation Comments MCHC (test code = MCHC) 32.6 32.0-36.0 [facility] GznhzxcPWVFZQQSFI8761-41-70 07:54:00 Test Item Value Reference Range Interpretation Comments MCV (test code = MCV) 79.2 80.0-94.0 [facility] DttkkduWVSBVSIKCP8840-62-42 07:54:00 Test Item Value Reference Range Interpretation Comments MCH (test code = MCH) 25.8 pg 27.0-31.0 [facility] [employer]2018-07-08 02:58:00 Test Item Value Reference Range Interpretation Comments Troponin-I (test code no gt See_Comment [Auto mated message] The = Troponin-I) system which g enerated this result transmit emerson reference range : <=0.40. The reference r yared was not used to interpr et this result as erinn l/abnormal. [facility] [employer]2018-07-08 02:58:00 Test Item Value Reference Range Interpretation Comments Troponin-I (test code no gt See_Comment [Auto mated message] The = Troponin-I) system which g enerated this result transmit emerson reference range : <=0.40. The reference r yared was not used to interpr et this result as erinn l/abnormal. [facility] CenterInvia.cz2018-07-08 00:12:00 Test Item Value Reference Range Interpretation Comments proBNP (test code = 09200 See_Comment [Automa emerson message] The proBNP) system which ge nerated this result tra nsmitted reference range : <=125. The reference r yared was not used to int erpret this result as erinn l/abnormal. [facility] CenterInvia.cz2018-07-08 00:12:00 Test Item Value Reference Range Interpretation Comments Total CK (test code = Total CK) 37 12-191 [facility] [employer]2018-07-08 00:12:00 Test Item Value Reference Range Interpretation Comments CK MB (test code = CK MB) 1.0 0.5-3.6 [facility] CenterannCARDIAC [id number] 00:12:00 Test Item Value Reference Range Interpretation Comments CK MB Index (test 2.7 1 See_Comment [Automate d message] The code = CK MB Index) system w [employer] generated this result transmit emerson reference range : <=2.5. The reference range was not used to interpr et this result as erinn l/abnormal. [facility] [id number] 00:12:00 Test Item Value Reference Range Interpretation Comments eGFR (test code = eGFR) 12 [facility] [id number] 00:12:00 Test Item Value Reference Range Interpretation Comments Alk Phos (test code = Alk Phos) 88 39-136 [facility] [id number] 00:12:00 Test Item Value Reference Range Interpretation Comments AST (test code = AST) 14 See_Comment [Auto mated message] The system which ge nerated this result transmit emerson reference range : <=37. The reference range was not used to interpr et this result as erinn l/abnormal. [facility] CenterDurect Corp[facility] [id number] 00:12:00 Test Item Value Reference Range Interpretation Comments Total Protein (test code = Total 7.4 6.4-8.4 Protein) [facility] [id number] 00:12:00 Test Item Value Reference Range Interpretation Comments Bili Total (test code = Bili Total) 0.5 0.2-1.3 [facility] [id number] 00:12:00 Test Item Value Reference Range Interpretation Comments ALT (test code = ALT) 17 See_Comment [Auto mated message] The system which ge nerated this result transmit emerson reference range : <=65. The reference range was not used to interpr et this result as erinn l/abnormal. [facility] CenterFriend Trusted [id number] 00:12:00 Test Item Value Reference Range Interpretation Comments Albumin Lvl (test code = Albumin Lvl) 3.2 3.5-5.0 [facility] CenterDurect Corp[facility] [id number] 00:12:00 Test Item Value Reference Range Interpretation Comments Calcium Lvl (test code = Calcium Lvl) 8.1 8.5-10.5 [facility]2018-07-08 00:12:00 Test Item Value Reference Range Interpretation Comments Sodium Lvl (test code = Sodium Lvl) 137 135-145 [facility]2018-07-08 00:12:00 Test Item Value Reference Range Interpretation Comments CO2 (test code = CO2) 26 24-32 [facility]2018-07-08 00:12:00 Test Item Value Reference Range Interpretation Comments Creatinine Lvl (test code = Creatinine 4.94 0.50-1.40 Lvl) [facility]2018-07-08 00:12:00 Test Item Value Reference Range Interpretation Comments BUN (test code = BUN) 24 7-22 [facility]2018-07-08 00:12:00 Test Item Value Reference Range Interpretation Comments Glucose Lvl (test code = Glucose Lvl) 156 70-99 [facility]2018-07-08 00:12:00 Test Item Value Reference Range Interpretation Comments B/C Ratio (test code = B/C Ratio) 5 1 6-25 [facility]2018-07-08 00:12:00 Test Item Value Reference Range Interpretation Comments AGAP (test code = AGAP) 12.3 10.0-20.0 [facility]2018-07-08 00:12:00 Test Item Value Reference Range Interpretation Comments A/G Ratio (test code = A/G Ratio) 0.8 1 0.7-1.6 [facility]2018-07-08 00:12:00 Test Item Value Reference Range Interpretation Comments Globulin (test code = Globulin) 4.2 2.7-4.2 [facility]2018-07-08 00:12:00 Test Item Value Reference Range Interpretation Comments Chloride Lvl (test code = Chloride Lvl) 102 95-109 [facility]2018-07-08 00:12:00 Test Item Value Reference Range Interpretation Comments Potassium Lvl (test code = Potassium 3.3 3.5-5.1 Lvl) [facility] CenterFutfoaqLYDVEWTZMK6973-98-37 00:12:00 Test Item Value Reference Range Interpretation Comments WBC (test code = WBC) 5.0 3.7-10.4 [facility] CenterHslkkutBJWQEAIRLP7411-39-34 00:12:00 Test Item Value Reference Range Interpretation Comments RDW (test code = RDW) 17.6 11.5-14.5 [facility] CenterEdnhcxbNNKWJIMRAX7583-19-74 00:12:00 Test Item Value Reference Range Interpretation Comments MCHC (test code = MCHC) 33.5 32.0-36.0 [facility] CenterLmbdhrdTQGBRQNKBB7683-42-87 00:12:00 Test Item Value Reference Range Interpretation Comments MPV (test code = MPV) 7.3 7.4-10.4 [facility] CenterOjevnegYFENWAGVAQ4860-30-07 00:12:00 Test Item Value Reference Range Interpretation Comments RBC (test code = RBC) 4.25 4.70-6.10 [facility] CenterFtiiasrRJYCSWSTKE7994-90-99 00:12:00 Test Item Value Reference Range Interpretation Comments MCH (test code = MCH) 26.0 pg 27.0-31.0 [facility] CenterRikqlupGXCTDRFYEL0126-27-18 00:12:00 Test Item Value Reference Range Interpretation Comments MCV (test code = MCV) 77.5 80.0-94.0 [facility] CenterYglyrbcPPCDRMEJWO2580-65-07 00:12:00 Test Item Value Reference Range Interpretation Comments Hct (test code = Hct) 33.0 42.0-54.0 [facility] CenterQuuvdgsHIJRQZUKKJ5773-46-71 00:12:00 Test Item Value Reference Range Interpretation Comments Hgb (test code = Hgb) 11.1 14.0-18.0 [facility] CenterSgxjcrsNZIJNEPFAD8452-94-86 00:12:00 Test Item Value Reference Range Interpretation Comments Platelet (test code = Platelet) 208 133-450 [facility] CenterLmklmtuQWBUHYWAEY3902-07-91 00:12:00 Test Item Value Reference Range Interpretation Comments Segs-Bands # (test code = Segs-Bands #) 3.6 1.5-8.1 [facility] CenterRptmrsjXZBRVONIOE5157-68-70 00:12:00 Test Item Value Reference Range Interpretation Comments Lymphocytes # (test code = Lymphocytes 0.9 1.0-5.5 #) [facility] CenterWaksrpzXRFCSKCEFV2286-48-43 00:12:00 Test Item Value Reference Range Interpretation Comments Basophils # (test code 0.1 See_Comment [Aut omated message] The = Basophils #) system which generated this result tra nsmitted reference range : <=0.2. The reference r yared was not used to int erpret this result as normal/abnormal . [facility] CenterNkeskpwFCZQQRMRRP3304-69-95 00:12:00 Test Item Value Reference Range Interpretation Comments Eosinophils # (test code 0.1 See_Comment [A utomated message] The = Eosinophils #) system whic h generated this result tra nsmitted reference range : <=0.5. The reference r yared was not used to int erpret this result as normal/abnormal . [facility] CenterZpnffvzPQQARLICEK0394-52-57 00:12:00 Test Item Value Reference Range Interpretation Comments Monocytes # (test code 0.4 See_Comment [Aut omated message] The = Monocytes #) system which generated this result tra nsmitted reference range : <=0.8. The reference r yared was not used to int erpret this result as normal/abnormal . [facility] CenterCypgqyrWOBIIJMITG3379-32-59 00:12:00 Test Item Value Reference Range Interpretation Comments Basophils (test code = 1.0 See_Comment [Aut omated message] The Basophils) system which ge nerated this result tra nsmitted reference range : <=1.0. The reference r yared was not used to int erpret this result as normal/abnormal . [facility] CenterLnxxzjtWQTFLCIZDA1288-43-67 00:12:00 Test Item Value Reference Range Interpretation Comments Eosinophils (test code = 2.0 See_Comment [A utomated message] The Eosinophils) system which ge nerated this result tra nsmitted reference range : <=4.0. The reference r yared was not used to int erpret this result as normal/abnormal . [facility] CenterVubyyxhXWRUBMAVUE5528-32-96 00:12:00 Test Item Value Reference Range Interpretation Comments Microcyte (test code = 1+ *ABN*(04/14/18 7:12 Microcyte) PM) [facility] CenterHlcumzzHXVGHWMGVP1044-13-76 00:12:00 Test Item Value Reference Range Interpretation Comments Plt Morph (test code = Normal (04/14/18 7:12 PM) Plt Morph) [facility] CenterYsxnvyvHHYDSVMZDL6654-31-01 00:12:00 Test Item Value Reference Range Interpretation Comments Lymphocytes (test code = Lymphocytes) 17.2 20.0-40.0 [facility] CenterRowjjufDLNIOQXAHL6268-83-67 00:12:00 Test Item Value Reference Range Interpretation Comments Segs (test code = Segs) 72.3 45.0-75.0 [facility] ZtvtuvbRIXJZTYYNU3726-67-19 00:12:00 Test Item Value Reference Range Interpretation Comments Monocytes (test code = Monocytes) 7.5 2.0-12.0 [facility]:12:00 Test Item Value Reference Range Interpretation Comments proBNP (test code = 25132 See_Comment [Automa emerson message] The proBNP) system which ge nerated this result tra nsmitted reference range : <=125. The reference r yared was not used to int erpret this result as erinn l/abnormal. [facility] [place] [place] DGZAOIP9524-35-91 00:12:00 Test Item Value Reference Range Interpretation Comments Total CK (test code = Total CK) 37 12-191 [facility] [employer] YGOJFBD0896-60-09 00:12:00 Test Item Value Reference Range Interpretation Comments CK MB (test code = CK MB) 1.0 0.5-3.6 [facility] [employer] YQVOHIA0897-33-36 00:12:00 Test Item Value Reference Range Interpretation Comments CK MB Index (test 2.7 1 See_Comment [Automate d message] The code = CK MB Index) system w [facility] generated this result transmit emerson reference range : <=2.5. The reference range was not used to interpr et this result as erinn l/abnormal. [facility] QKVMR2227-20-93 00:12:00 Test Item Value Reference Range Interpretation Comments eGFR (test code = eGFR) 12 [facility] [employer] [id number] 00:12:00 Test Item Value Reference Range Interpretation Comments Alk Phos (test code = Alk Phos) 88 39-136 [facility] [employer] YDPOC7352-32-69 00:12:00 Test Item Value Reference Range Interpretation Comments AST (test code = AST) 14 See_Comment [Auto mated message] The system which ge nerated this result transmit emerson reference range : <=37. The reference range was not used to interpr et this result as erinn l/abnormal. [facility] [id number] 00:12:00 Test Item Value Reference Range Interpretation Comments Total Protein (test code = Total 7.4 6.4-8.4 Protein) [facility]2018-07-08 00:12:00 Test Item Value Reference Range Interpretation Comments Bili Total (test code = Bili Total) 0.5 0.2-1.3 [facility]2018-07-08 00:12:00 Test Item Value Reference Range Interpretation Comments ALT (test code = ALT) 17 See_Comment [Auto mated message] The system which ge nerated this result transmit emerson reference range : <=65. The reference range was not used to interpr et this result as erinn l/abnormal. [facility]2018-07-08 00:12:00 Test Item Value Reference Range Interpretation Comments Albumin Lvl (test code = Albumin Lvl) 3.2 3.5-5.0 [facility]2018-07-08 00:12:00 Test Item Value Reference Range Interpretation Comments Calcium Lvl (test code = Calcium Lvl) 8.1 8.5-10.5 [facility]2018-07-08 00:12:00 Test Item Value Reference Range Interpretation Comments Sodium Lvl (test code = Sodium Lvl) 137 135-145 [facility]2018-07-08 00:12:00 Test Item Value Reference Range Interpretation Comments CO2 (test code = CO2) 26 24-32 [facility]2018-07-08 00:12:00 Test Item Value Reference Range Interpretation Comments Creatinine Lvl (test code = Creatinine 4.94 0.50-1.40 Lvl) [facility]2018-07-08 00:12:00 Test Item Value Reference Range Interpretation Comments BUN (test code = BUN) 24 7-22 [facility]2018-07-08 00:12:00 Test Item Value Reference Range Interpretation Comments Glucose Lvl (test code = Glucose Lvl) 156 70-99 [facility]2018-07-08 00:12:00 Test Item Value Reference Range Interpretation Comments B/C Ratio (test code = B/C Ratio) 5 1 6-25 [facility]2018-07-08 00:12:00 Test Item Value Reference Range Interpretation Comments AGAP (test code = AGAP) 12.3 10.0-20.0 [facility]2018-07-08 00:12:00 Test Item Value Reference Range Interpretation Comments A/G Ratio (test code = A/G Ratio) 0.8 1 0.7-1.6 [facility]2018-07-08 00:12:00 Test Item Value Reference Range Interpretation Comments Globulin (test code = Globulin) 4.2 2.7-4.2 [facility]2018-07-08 00:12:00 Test Item Value Reference Range Interpretation Comments Chloride Lvl (test code = Chloride Lvl) 102 95-109 [facility]2018-07-08 00:12:00 Test Item Value Reference Range Interpretation Comments Potassium Lvl (test code = Potassium 3.3 3.5-5.1 Lvl) [facility] CenterRsshgkuXAAAGLBQPT3794-59-17 00:12:00 Test Item Value Reference Range Interpretation Comments WBC (test code = WBC) 5.0 3.7-10.4 [facility] CenterGhotssfWUDTHRJMIB3344-58-07 00:12:00 Test Item Value Reference Range Interpretation Comments RDW (test code = RDW) 17.6 11.5-14.5 [facility] CenterQvqvcdsOWWFZXBZAS5328-77-08 00:12:00 Test Item Value Reference Range Interpretation Comments MCHC (test code = MCHC) 33.5 32.0-36.0 [facility] CenterYhhvhlzDONRGHPALX2952-08-31 00:12:00 Test Item Value Reference Range Interpretation Comments MPV (test code = MPV) 7.3 7.4-10.4 [facility] CenterUwsdiuzFJNFQKLDSL8507-59-46 00:12:00 Test Item Value Reference Range Interpretation Comments RBC (test code = RBC) 4.25 4.70-6.10 [facility] CenterUfoeyvfGMCZEAYRUU0411-72-68 00:12:00 Test Item Value Reference Range Interpretation Comments MCH (test code = MCH) 26.0 pg 27.0-31.0 [facility] CenterKmbcjymYXGQYNAYGB5556-13-20 00:12:00 Test Item Value Reference Range Interpretation Comments MCV (test code = MCV) 77.5 80.0-94.0 [facility] CenterZtmmixbXSDBEFZDFD6074-83-28 00:12:00 Test Item Value Reference Range Interpretation Comments Hct (test code = Hct) 33.0 42.0-54.0 [facility] CenterVtwpcrhAOEMJWNKCV4429-71-89 00:12:00 Test Item Value Reference Range Interpretation Comments Hgb (test code = Hgb) 11.1 14.0-18.0 [facility] CenterJuhcwraJNYQUYDQXZ5888-83-14 00:12:00 Test Item Value Reference Range Interpretation Comments Platelet (test code = Platelet) 208 133-450 [facility] CenterWrxjefjCZEWRJPOLP5227-57-15 00:12:00 Test Item Value Reference Range Interpretation Comments Segs-Bands # (test code = Segs-Bands #) 3.6 1.5-8.1 [facility] CenterQsaxxhwLQVUINHTRN0905-22-22 00:12:00 Test Item Value Reference Range Interpretation Comments Lymphocytes # (test code = Lymphocytes 0.9 1.0-5.5 #) [facility] CenterKuwikvyBOJKJILNBA4827-03-59 00:12:00 Test Item Value Reference Range Interpretation Comments Basophils # (test code 0.1 See_Comment [Aut omated message] The = Basophils #) system which generated this result tra nsmitted reference range : <=0.2. The reference r yared was not used to int erpret this result as normal/abnormal . [facility] CenterPgsvfmfSPRWBZCGBV3218-46-14 00:12:00 Test Item Value Reference Range Interpretation Comments Eosinophils # (test code 0.1 See_Comment [A utomated message] The = Eosinophils #) system whic h generated this result tra nsmitted reference range : <=0.5. The reference r yared was not used to int erpret this result as normal/abnormal . [facility] CenterNxboospFSRXANWDLS9898-71-38 00:12:00 Test Item Value Reference Range Interpretation Comments Monocytes # (test code 0.4 See_Comment [Aut omated message] The = Monocytes #) system which generated this result tra nsmitted reference range : <=0.8. The reference r yared was not used to int erpret this result as normal/abnormal . [facility] CenterKqqyykkFESWUWLFAX0187-88-39 00:12:00 Test Item Value Reference Range Interpretation Comments Basophils (test code = 1.0 See_Comment [Aut omated message] The Basophils) system which ge nerated this result tra nsmitted reference range : <=1.0. The reference r yared was not used to int erpret this result as normal/abnormal . [facility] CenterJjarysjRONZWKHFXR3988-39-85 00:12:00 Test Item Value Reference Range Interpretation Comments Eosinophils (test code = 2.0 See_Comment [A utomated message] The Eosinophils) system which ge nerated this result tra nsmitted reference range : <=4.0. The reference r yared was not used to int erpret this result as normal/abnormal . [facility] CenterTpwydeeYJAMIBLBCI4537-63-71 00:12:00 Test Item Value Reference Range Interpretation Comments Microcyte (test code = 1+ *ABN*(04/14/18 7:12 Microcyte) PM) [facility] CenterEznfccpYRSHUEFNHA5426-62-55 00:12:00 Test Item Value Reference Range Interpretation Comments Plt Morph (test code = Normal (04/14/18 7:12 PM) Plt Morph) [facility] CenterGrtxdtrZQHDPYDJHM7032-92-23 00:12:00 Test Item Value Reference Range Interpretation Comments Lymphocytes (test code = Lymphocytes) 17.2 20.0-40.0 [facility] CenterPlxvhgsEVFTOFVLTU9923-52-46 00:12:00 Test Item Value Reference Range Interpretation Comments Segs (test code = Segs) 72.3 45.0-75.0 [facility] CenterHonvhjbODUWBEQXJI2039-34-72 00:12:00 Test Item Value Reference Range Interpretation Comments Monocytes (test code = Monocytes) 7.5 2.0-12.0 [facility]WbzusxxXPYCBPPWVT0753-34-67 12:10:00 Test Item Value Reference Range Interpretation Comments Vanco Lvl (test code = Vanco Lvl) 17.4 [facility] CenterYjkivlzQLTEEKGNQN4031-68-87 12:10:00 Test Item Value Reference Range Interpretation Comments Vanco Lvl (test code = Vanco Lvl) 17.4 [facility] CenterannCHEM THRMX7580-77-23 08:01:00 Test Item Value Reference Range Interpretation Comments Magnesium Lvl (test code = Magnesium 2.1 1.8-2.4 Lvl) [facility] CenterCHEM VUWQD8865-88-06 08:01:00 Test Item Value Reference Range Interpretation Comments Phosphorus (test code = Phosphorus) 5.6 2.5-4.5 [facility]yMADEKPAJNSCY2115-33-31 08:01:00 Test Item Value Reference Range Interpretation Comments AGAP (test code = AGAP) 17.3 10.0-20.0 [facility]SfohteaYCJHYMXUCWET8487-20-77 08:01:00 Test Item Value Reference Range Interpretation Comments eGFR (test code = eGFR) 5 [facility]BcdyboqPQUFSWJXSHGM8178-25-09 08:01:00 Test Item Value Reference Range Interpretation Comments Chloride Lvl (test code = Chloride Lvl) 94 95-109 [facility]YpcebhdKWLBCSXCOZNW0360-02-85 08:01:00 Test Item Value Reference Range Interpretation Comments CO2 (test code = CO2) 24 24-32 [facility] HospitalUmyowwbZYQSALBIQSFJ9976-82-87 08:01:00 Test Item Value Reference Range Interpretation Comments Calcium Lvl (test code = Calcium Lvl) 8.3 8.5-10.5 [facility] HospitalSsmugbvVKCJAJVTVNCF3965-42-21 08:01:00 Test Item Value Reference Range Interpretation Comments Glucose Lvl (test code = Glucose Lvl) 120 70-99 [facility] HospitalHmbekznZZGPMVCHVAKC9422-92-88 08:01:00 Test Item Value Reference Range Interpretation Comments Potassium Lvl (test code = Potassium 4.3 3.5-5.1 Lvl) [facility] HospitalXmsufsxDANZVYIOYEKV3800-50-69 08:01:00 Test Item Value Reference Range Interpretation Comments Sodium Lvl (test code = Sodium Lvl) 131 135-145 [facility] HospitalKorspyhHWRMIIRZBJYY8326-11-51 08:01:00 Test Item Value Reference Range Interpretation Comments BUN (test code = BUN) 55 7-22 [facility] HospitalWohmxiaDETPCXATQMEQ4416-00-50 08:01:00 Test Item Value Reference Range Interpretation Comments Creatinine Lvl (test code = Creatinine 9.62 0.50-1.40 Lvl) [facility] CenterDeswqvaTVQPXMOBIF9956-07-34 08:01:00 Test Item Value Reference Range Interpretation Comments Basophils (test code = 0.3 See_Comment [Aut omated message] The Basophils) system which ge nerated this result tra nsmitted reference range : <=1.0. The reference r yared was not used to int erpret this result as normal/abnormal . [facility] CenterKpaozrqIAYBDBANGX6799-23-11 08:01:00 Test Item Value Reference Range Interpretation Comments Monocytes (test code = Monocytes) 10.9 2.0-12.0 [facility] CenterQkuwjwcGZLMFLYRBE2745-08-78 08:01:00 Test Item Value Reference Range Interpretation Comments Segs (test code = Segs) 78.7 45.0-75.0 [facility] CenterJspqrzoROYARFTGRO4587-74-85 08:01:00 Test Item Value Reference Range Interpretation Comments Lymphocytes (test code = Lymphocytes) 8.8 20.0-40.0 [facility] CenterQcmwyquIUBSWXIBZI2564-32-72 08:01:00 Test Item Value Reference Range Interpretation Comments Eosinophils # (test code 0.1 See_Comment [A utomated message] The = Eosinophils #) system whic h generated this result tra nsmitted reference range : <=0.5. The reference r yared was not used to int erpret this result as normal/abnormal . [facility] CenterKvlcuoyMZWYXYVLYJ6898-41-28 08:01:00 Test Item Value Reference Range Interpretation Comments Monocytes # (test code 0.9 See_Comment [Aut omated message] The = Monocytes #) system which generated this result tra nsmitted reference range : <=0.8. The reference r yared was not used to int erpret this result as normal/abnormal . [facility] CenterKxvbboiGSFMTBSMBD5319-80-24 08:01:00 Test Item Value Reference Range Interpretation Comments Eosinophils (test code = 1.3 See_Comment [A utomated message] The Eosinophils) system which ge nerated this result tra nsmitted reference range : <=4.0. The reference r yared was not used to int erpret this result as normal/abnormal . [facility] CenterVtmcxztKFTYVTRIOX0812-39-39 08:01:00 Test Item Value Reference Range Interpretation Comments Microcyte (test code = 1+ *ABN*(03/19/18 Microcyte) 3:01 AM) [facility] CenterBxircroTPRNWGUGMJ8703-74-89 08:01:00 Test Item Value Reference Range Interpretation Comments Segs-Bands # (test code = Segs-Bands #) 6.5 1.5-8.1 [facility] CenterBadralpPONLQYNQJV4647-24-47 08:01:00 Test Item Value Reference Range Interpretation Comments Lymphocytes # (test code = Lymphocytes 0.7 1.0-5.5 #) [facility] CenterOjscakyPIUYKWZFQI9530-66-99 08:01:00 Test Item Value Reference Range Interpretation Comments MPV (test code = MPV) 7.9 7.4-10.4 [facility] CenterBgsnczaGRDKHBOTHU9238-71-93 08:01:00 Test Item Value Reference Range Interpretation Comments Platelet (test code = Platelet) 240 133-450 [facility] CenterDpzwmziACHAGGFDYQ9849-26-32 08:01:00 Test Item Value Reference Range Interpretation Comments MCH (test code = MCH) 26.4 pg 27.0-31.0 [facility] CenterUtpoxljKDIQQDVTOY7776-44-02 08:01:00 Test Item Value Reference Range Interpretation Comments RDW (test code = RDW) 15.4 11.5-14.5 [facility] CenterLprojdwWBOYEQOIEX2030-55-97 08:01:00 Test Item Value Reference Range Interpretation Comments MCHC (test code = MCHC) 34.2 32.0-36.0 [facility] CenterJhismsbHIJNIWOPXH9901-82-85 08:01:00 Test Item Value Reference Range Interpretation Comments RBC (test code = RBC) 2.99 4.70-6.10 [facility] CenterDgdacezJHNTLOJHQQ1207-00-50 08:01:00 Test Item Value Reference Range Interpretation Comments WBC (test code = WBC) 8.2 3.7-10.4 [facility] CenterVgznshzEANVECWEDZ7942-24-85 08:01:00 Test Item Value Reference Range Interpretation Comments Hct (test code = Hct) 23.1 42.0-54.0 [facility] CenterBgxlirpTLSNKMTZIJ5646-68-94 08:01:00 Test Item Value Reference Range Interpretation Comments Hgb (test code = Hgb) 7.9 14.0-18.0 [facility] CenterBidpwrbJEIEPQWKBY7695-27-87 08:01:00 Test Item Value Reference Range Interpretation Comments MCV (test code = MCV) 77.1 80.0-94.0 [facility]2018-06-11 08:01:00 Test Item Value Reference Range Interpretation Comments Magnesium Lvl (test code = Magnesium 2.1 1.8-2.4 Lvl) [facility] PLEAE3081-39-50 08:01:00 Test Item Value Reference Range Interpretation Comments Phosphorus (test code = Phosphorus) 5.6 2.5-4.5 [facility]DytvqhyQMYIOVDSKHHW8721-42-41 08:01:00 Test Item Value Reference Range Interpretation Comments AGAP (test code = AGAP) 17.3 10.0-20.0 [facility]EgrnvjhTBKAODECKDWO4591-04-50 08:01:00 Test Item Value Reference Range Interpretation Comments eGFR (test code = eGFR) 5 [facility] HospitalTxnthxqHKKWWMCTGKHO9677-31-35 08:01:00 Test Item Value Reference Range Interpretation Comments Chloride Lvl (test code = Chloride Lvl) 94 95-109 [facility] HospitalLigwsokARQYLNXSRCZR3236-16-93 08:01:00 Test Item Value Reference Range Interpretation Comments CO2 (test code = CO2) 24 24-32 [facility] HospitalRprwdfuOMMUXYURFDQG7092-83-82 08:01:00 Test Item Value Reference Range Interpretation Comments Calcium Lvl (test code = Calcium Lvl) 8.3 8.5-10.5 [facility] HospitalNacpsssJJDSHJQYFVDI6273-76-27 08:01:00 Test Item Value Reference Range Interpretation Comments Glucose Lvl (test code = Glucose Lvl) 120 70-99 [facility] HospitalLoxuhzuHPZJRJKNRVLI7665-70-82 08:01:00 Test Item Value Reference Range Interpretation Comments Potassium Lvl (test code = Potassium 4.3 3.5-5.1 Lvl) [facility] HospitalCihvrzbMTMLNQCDINSY5281-58-24 08:01:00 Test Item Value Reference Range Interpretation Comments Sodium Lvl (test code = Sodium Lvl) 131 135-145 [facility] HospitalXyponabMBHQDKWKDQFD5704-07-19 08:01:00 Test Item Value Reference Range Interpretation Comments BUN (test code = BUN) 55 7-22 [facility] HospitalPzegmksHDIIDPYFNYGV7478-65-70 08:01:00 Test Item Value Reference Range Interpretation Comments Creatinine Lvl (test code = Creatinine 9.62 0.50-1.40 Lvl) [facility] CenterJfcswwrUXYJHRKYPK2764-03-78 08:01:00 Test Item Value Reference Range Interpretation Comments Basophils (test code = 0.3 See_Comment [Aut omated message] The Basophils) system which ge nerated this result tra nsmitted reference range : <=1.0. The reference r yared was not used to int erpret this result as normal/abnormal . [facility] CenterKqswydfEYGHOGIXIO5416-31-22 08:01:00 Test Item Value Reference Range Interpretation Comments Monocytes (test code = Monocytes) 10.9 2.0-12.0 [facility] CenterZvzjmqpHHOTMDSNHL8379-73-28 08:01:00 Test Item Value Reference Range Interpretation Comments Segs (test code = Segs) 78.7 45.0-75.0 [facility] CenterYuzmwfmDNTVZUOUKS1496-50-51 08:01:00 Test Item Value Reference Range Interpretation Comments Lymphocytes (test code = Lymphocytes) 8.8 20.0-40.0 [facility] CenterKdkkgboOZLRTLUMKI5360-31-46 08:01:00 Test Item Value Reference Range Interpretation Comments Eosinophils # (test code 0.1 See_Comment [A utomated message] The = Eosinophils #) system whic h generated this result tra nsmitted reference range : <=0.5. The reference r yared was not used to int erpret this result as normal/abnormal . [facility] CenterDhajrkoMNIMMLLVBB8540-76-61 08:01:00 Test Item Value Reference Range Interpretation Comments Monocytes # (test code 0.9 See_Comment [Aut omated message] The = Monocytes #) system which generated this result tra nsmitted reference range : <=0.8. The reference r yared was not used to int erpret this result as normal/abnormal . [facility] CenterMbuhttpOZTSMURIIT7288-73-75 08:01:00 Test Item Value Reference Range Interpretation Comments Eosinophils (test code = 1.3 See_Comment [A utomated message] The Eosinophils) system which ge nerated this result tra nsmitted reference range : <=4.0. The reference r yared was not used to int erpret this result as normal/abnormal . [facility] CenterIawfgvuNAJPIKOTHY5924-53-66 08:01:00 Test Item Value Reference Range Interpretation Comments Microcyte (test code = 1+ *ABN*(03/19/18 Microcyte) 3:01 AM) [facility] CenterLuybwsfRLDEPSLDEF7292-98-28 08:01:00 Test Item Value Reference Range Interpretation Comments Segs-Bands # (test code = Segs-Bands #) 6.5 1.5-8.1 [facility] CenterGkxowmgMISIGFNDVD6779-40-70 08:01:00 Test Item Value Reference Range Interpretation Comments Lymphocytes # (test code = Lymphocytes 0.7 1.0-5.5 #) [facility] CenterZhzebwrBVKZAKNYOW0499-10-69 08:01:00 Test Item Value Reference Range Interpretation Comments MPV (test code = MPV) 7.9 7.4-10.4 [facility] CenterPximcolBUACKROLOX9155-32-13 08:01:00 Test Item Value Reference Range Interpretation Comments Platelet (test code = Platelet) 240 133-450 [facility] CenterOrqvijwKTNHSFQAFL1841-15-88 08:01:00 Test Item Value Reference Range Interpretation Comments MCH (test code = MCH) 26.4 pg 27.0-31.0 [facility] CenterXlhmmowZNKCLFJHWY4357-13-68 08:01:00 Test Item Value Reference Range Interpretation Comments RDW (test code = RDW) 15.4 11.5-14.5 [facility] CenterXripsslAMRFACKMYZ1062-36-43 08:01:00 Test Item Value Reference Range Interpretation Comments MCHC (test code = MCHC) 34.2 32.0-36.0 [facility]ZrnwjmdCUKOMCADRP3239-85-42 08:01:00 Test Item Value Reference Range Interpretation Comments RBC (test code = RBC) 2.99 4.70-6.10 [facility] CenterZzzniyyEMRMGSJXBJ3828-54-09 08:01:00 Test Item Value Reference Range Interpretation Comments WBC (test code = WBC) 8.2 3.7-10.4 [facility] CenterFqjuoibYEVSZPCLYE7873-17-34 08:01:00 Test Item Value Reference Range Interpretation Comments Hct (test code = Hct) 23.1 42.0-54.0 [facility] CenterKvidwbmGJTUZZRATX7657-74-81 08:01:00 Test Item Value Reference Range Interpretation Comments Hgb (test code = Hgb) 7.9 14.0-18.0 [facility] CenterYsgovcxLIDCMWXYVN8176-33-81 08:01:00 Test Item Value Reference Range Interpretation Comments MCV (test code = MCV) 77.1 80.0-94.0 [facility]2018-06-10 08:29:00 Test Item Value Reference Range Interpretation Comments Magnesium Lvl (test code = Magnesium 2.3 1.8-2.4 Lvl) [facility]2018-06-10 08:29:00 Test Item Value Reference Range Interpretation Comments eGFR (test code = eGFR) 6 [facility]2018-06-10 08:29:00 Test Item Value Reference Range Interpretation Comments Bili Total (test code = Bili Total) 0.4 0.2-1.3 [facility]2018-06-10 08:29:00 Test Item Value Reference Range Interpretation Comments Potassium Lvl (test code = Potassium 4.0 3.5-5.1 Lvl) [facility]2018-06-10 08:29:00 Test Item Value Reference Range Interpretation Comments Glucose Lvl (test code = Glucose Lvl) 105 70-99 [facility]2018-06-10 08:29:00 Test Item Value Reference Range Interpretation Comments BUN (test code = BUN) 50 7-22 [facility]2018-06-10 08:29:00 Test Item Value Reference Range Interpretation Comments Sodium Lvl (test code = Sodium Lvl) 133 135-145 [facility]2018-06-10 08:29:00 Test Item Value Reference Range Interpretation Comments Creatinine Lvl (test code = Creatinine 8.40 0.50-1.40 Lvl) [facility]2018-06-10 08:29:00 Test Item Value Reference Range Interpretation Comments Chloride Lvl (test code = Chloride Lvl) 97 95-109 [facility]2018-06-10 08:29:00 Test Item Value Reference Range Interpretation Comments Alk Phos (test code = Alk Phos) 104 39-136 [facility]2018-06-10 08:29:00 Test Item Value Reference Range Interpretation Comments Albumin Lvl (test code = Albumin Lvl) 2.7 3.5-5.0 [facility]2018-06-10 08:29:00 Test Item Value Reference Range Interpretation Comments Total Protein (test code = Total 6.9 6.4-8.4 Protein) [facility]2018-06-10 08:29:00 Test Item Value Reference Range Interpretation Comments Calcium Lvl (test code = Calcium Lvl) 8.0 8.5-10.5 [facility]2018-06-10 08:29:00 Test Item Value Reference Range Interpretation Comments CO2 (test code = CO2) 26 24-32 [facility]2018-06-10 08:29:00 Test Item Value Reference Range Interpretation Comments AST (test code = AST) 9 See_Comment [Auto mated message] The system which ge nerated this result transmit emerson reference range : <=37. The reference range was not used to interpr et this result as erinn l/abnormal. [facility]2018-06-10 08:29:00 Test Item Value Reference Range Interpretation Comments ALT (test code = ALT) 12 See_Comment [Auto mated message] The system which ge nerated this result transmit emerson reference range : <=65. The reference range was not used to interpr et this result as erinn l/abnormal. [place] 943368-06-10 08:29:00 Test Item Value Reference Range Interpretation Comments B/C Ratio (test code = B/C Ratio) 6 1 6-25 [facility]2018-06-10 08:29:00 Test Item Value Reference Range Interpretation Comments AGAP (test code = AGAP) 14.0 10.0-20.0 [facility]2018-06-10 08:29:00 Test Item Value Reference Range Interpretation Comments Globulin (test code = Globulin) 4.2 2.7-4.2 [place] 943368-06-10 08:29:00 Test Item Value Reference Range Interpretation Comments A/G Ratio (test code = A/G Ratio) 0.6 1 0.7-1.6 [place] 943368-06-10 08:29:00 Test Item Value Reference Range Interpretation Comments Phosphorus (test code = Phosphorus) 5.7 2.5-4.5 [facility] CenterVnjzelhWVBYMZVTKV8709-88-63 08:29:00 Test Item Value Reference Range Interpretation Comments INR (test code = INR) 1.23 1 0.85-1.17 [facility] CenterQwvfpzpDQJYFIPMSE8283-88-46 08:29:00 Test Item Value Reference Range Interpretation Comments PTT (test code = PTT) 42.0 s 22.9-35.8 [facility] CenterUturrceHRPTPNGDCK5928-86-97 08:29:00 Test Item Value Reference Range Interpretation Comments PT (test code = PT) 15.6 s 12.0-14.7 [facility] CenterGpwsfhbHWXSDQRQLL3809-79-19 08:29:00 Test Item Value Reference Range Interpretation Comments Microcyte (test code = 1+ *ABN*(03/18/18 Microcyte) 3:29 AM) [facility] CenterUjofehpHIHUXGHGHM8134-45-40 08:29:00 Test Item Value Reference Range Interpretation Comments Monocytes # (test code 1.0 See_Comment [Aut omated message] The = Monocytes #) system which generated this result tra nsmitted reference range : <=0.8. The reference r yared was not used to int erpret this result as normal/abnormal . [facility] CenterZkfdinmTUNPRSDUKX5131-65-78 08:29:00 Test Item Value Reference Range Interpretation Comments Eosinophils # (test code 0.1 See_Comment [A utomated message] The = Eosinophils #) system whic h generated this result tra nsmitted reference range : <=0.5. The reference r yared was not used to int erpret this result as normal/abnormal . [facility] CenterYfdprkfYKWTQRSTEB0283-23-84 08:29:00 Test Item Value Reference Range Interpretation Comments Lymphocytes # (test code = Lymphocytes 0.9 1.0-5.5 #) [facility] CenterKkfbpymFPIQMXFFOP6446-19-62 08:29:00 Test Item Value Reference Range Interpretation Comments Segs-Bands # (test code = Segs-Bands #) 5.0 1.5-8.1 [facility] CenterNdrfkejNLJUDKGHET0815-27-46 08:29:00 Test Item Value Reference Range Interpretation Comments Eosinophils (test code = 1.6 See_Comment [A utomated message] The Eosinophils) system which ge nerated this result tra nsmitted reference range : <=4.0. The reference r yared was not used to int erpret this result as normal/abnormal . [facility] CenterIsrofcmSFVAMDPGNA6550-57-89 08:29:00 Test Item Value Reference Range Interpretation Comments Lymphocytes (test code = Lymphocytes) 13.3 20.0-40.0 [facility] CenterIrswumbZJWZZKOHOG7211-84-52 08:29:00 Test Item Value Reference Range Interpretation Comments Basophils (test code = 0.5 See_Comment [Aut omated message] The Basophils) system which ge nerated this result tra nsmitted reference range : <=1.0. The reference r yared was not used to int erpret this result as normal/abnormal . [facility] CenterEypunsvZKWEAIHZTJ7986-30-29 08:29:00 Test Item Value Reference Range Interpretation Comments Monocytes (test code = Monocytes) 13.9 2.0-12.0 [facility] CenterNivbxclRLTJWZWGPC1434-55-74 08:29:00 Test Item Value Reference Range Interpretation Comments Segs (test code = Segs) 70.7 45.0-75.0 [facility] CenterYvdlyhwTZVSFOPFND8172-77-20 08:29:00 Test Item Value Reference Range Interpretation Comments Platelet (test code = Platelet) 217 133-450 [facility] CenterUxvvswpEDRYXEKZUE6608-51-29 08:29:00 Test Item Value Reference Range Interpretation Comments MPV (test code = MPV) 7.9 7.4-10.4 [facility] CenterAnjwabkVNIVCEDUKP6854-32-49 08:29:00 Test Item Value Reference Range Interpretation Comments MCHC (test code = MCHC) 33.8 32.0-36.0 [facility] CenterZhxdaglDJSXTFSSKG1849-93-00 08:29:00 Test Item Value Reference Range Interpretation Comments RDW (test code = RDW) 15.0 11.5-14.5 [facility] CenterZihaukjONATQQMUAG8320-09-91 08:29:00 Test Item Value Reference Range Interpretation Comments Hct (test code = Hct) 21.8 42.0-54.0 [facility] CenterNtlmbujDIVNRJSQIT5601-17-63 08:29:00 Test Item Value Reference Range Interpretation Comments MCV (test code = MCV) 77.9 80.0-94.0 [facility] CenterTvjreofYTYDWOHBUV4333-68-30 08:29:00 Test Item Value Reference Range Interpretation Comments MCH (test code = MCH) 26.3 pg 27.0-31.0 [facility] CenterIvtljvoLMHGLABNJP7800-21-44 08:29:00 Test Item Value Reference Range Interpretation Comments RBC (test code = RBC) 2.80 4.70-6.10 [facility] CenterRzmsgqoZXVACDAIEQ2316-27-87 08:29:00 Test Item Value Reference Range Interpretation Comments Hgb (test code = Hgb) 7.4 14.0-18.0 [facility] CenterInckotmKJUMXMPLYH8952-23-93 08:29:00 Test Item Value Reference Range Interpretation Comments WBC (test code = WBC) 7.1 3.7-10.4 [facility]2018-06-10 08:29:00 Test Item Value Reference Range Interpretation Comments Magnesium Lvl (test code = Magnesium 2.3 1.8-2.4 Lvl) [facility]2018-06-10 08:29:00 Test Item Value Reference Range Interpretation Comments eGFR (test code = eGFR) 6 [facility]2018-06-10 08:29:00 Test Item Value Reference Range Interpretation Comments Bili Total (test code = Bili Total) 0.4 0.2-1.3 [facility]2018-06-10 08:29:00 Test Item Value Reference Range Interpretation Comments Potassium Lvl (test code = Potassium 4.0 3.5-5.1 Lvl) [facility]2018-06-10 08:29:00 Test Item Value Reference Range Interpretation Comments Glucose Lvl (test code = Glucose Lvl) 105 70-99 [facility]2018-06-10 08:29:00 Test Item Value Reference Range Interpretation Comments BUN (test code = BUN) 50 7-22 [facility]2018-06-10 08:29:00 Test Item Value Reference Range Interpretation Comments Sodium Lvl (test code = Sodium Lvl) 133 135-145 [facility]2018-06-10 08:29:00 Test Item Value Reference Range Interpretation Comments Creatinine Lvl (test code = Creatinine 8.40 0.50-1.40 Lvl) [facility]2018-06-10 08:29:00 Test Item Value Reference Range Interpretation Comments Chloride Lvl (test code = Chloride Lvl) 97 95-109 [facility]2018-06-10 08:29:00 Test Item Value Reference Range Interpretation Comments Alk Phos (test code = Alk Phos) 104 39-136 [facility]2018-06-10 08:29:00 Test Item Value Reference Range Interpretation Comments Albumin Lvl (test code = Albumin Lvl) 2.7 3.5-5.0 [facility]2018-06-10 08:29:00 Test Item Value Reference Range Interpretation Comments Total Protein (test code = Total 6.9 6.4-8.4 Protein) [facility]2018-06-10 08:29:00 Test Item Value Reference Range Interpretation Comments Calcium Lvl (test code = Calcium Lvl) 8.0 8.5-10.5 [facility]2018-06-10 08:29:00 Test Item Value Reference Range Interpretation Comments CO2 (test code = CO2) 26 24-32 [facility]2018-06-10 08:29:00 Test Item Value Reference Range Interpretation Comments AST (test code = AST) 9 See_Comment [Auto mated message] The system which ge nerated this result transmit emerson reference range : <=37. The reference range was not used to interpr et this result as erinn l/abnormal. [facility]2018-06-10 08:29:00 Test Item Value Reference Range Interpretation Comments ALT (test code = ALT) 12 See_Comment [Auto mated message] The system which ge nerated this result transmit emerson reference range : <=65. The reference range was not used to interpr et this result as erinn l/abnormal. [facility]2018-06-10 08:29:00 Test Item Value Reference Range Interpretation Comments B/C Ratio (test code = B/C Ratio) 6 1 6-25 [facility]2018-06-10 08:29:00 Test Item Value Reference Range Interpretation Comments AGAP (test code = AGAP) 14.0 10.0-20.0 [facility]2018-06-10 08:29:00 Test Item Value Reference Range Interpretation Comments Globulin (test code = Globulin) 4.2 2.7-4.2 [facility]2018-06-10 08:29:00 Test Item Value Reference Range Interpretation Comments A/G Ratio (test code = A/G Ratio) 0.6 1 0.7-1.6 [facility]2018-06-10 08:29:00 Test Item Value Reference Range Interpretation Comments Phosphorus (test code = Phosphorus) 5.7 2.5-4.5 [facility] CenterLabizyyJCJFQTXJDI8754-18-33 08:29:00 Test Item Value Reference Range Interpretation Comments INR (test code = INR) 1.23 1 0.85-1.17 [facility] CenterAisnozpHGAADQIJCA6353-02-01 08:29:00 Test Item Value Reference Range Interpretation Comments PTT (test code = PTT) 42.0 s 22.9-35.8 [facility] CenterDepiuewQYKEELGRTK5262-18-25 08:29:00 Test Item Value Reference Range Interpretation Comments PT (test code = PT) 15.6 s 12.0-14.7 [facility] CenterHnobsfeETVRGDOQXI6809-22-88 08:29:00 Test Item Value Reference Range Interpretation Comments Microcyte (test code = 1+ *ABN*(03/18/18 Microcyte) 3:29 AM) [facility] CenterWduulrbMMXQQQFDKJ5612-55-07 08:29:00 Test Item Value Reference Range Interpretation Comments Monocytes # (test code 1.0 See_Comment [Aut omated message] The = Monocytes #) system which generated this result tra nsmitted reference range : <=0.8. The reference r yared was not used to int erpret this result as normal/abnormal . [facility] CenterCiqvulpDVDBHENAWM8527-40-19 08:29:00 Test Item Value Reference Range Interpretation Comments Eosinophils # (test code 0.1 See_Comment [A utomated message] The = Eosinophils #) system whic h generated this result tra nsmitted reference range : <=0.5. The reference r yared was not used to int erpret this result as normal/abnormal . [facility] CenterDffqaxuOEPUNAEXRA1671-04-20 08:29:00 Test Item Value Reference Range Interpretation Comments Lymphocytes # (test code = Lymphocytes 0.9 1.0-5.5 #) [facility] CenterZolmmuwZJMMGGTYOB8834-30-91 08:29:00 Test Item Value Reference Range Interpretation Comments Segs-Bands # (test code = Segs-Bands #) 5.0 1.5-8.1 [facility] CenterVmlfiibZSBZHXXGWY3007-76-75 08:29:00 Test Item Value Reference Range Interpretation Comments Eosinophils (test code = 1.6 See_Comment [A utomated message] The Eosinophils) system which ge nerated this result tra nsmitted reference range : <=4.0. The reference r yared was not used to int erpret this result as normal/abnormal . [facility] CenterXcklzdsBYYKOBOUHK9107-07-72 08:29:00 Test Item Value Reference Range Interpretation Comments Lymphocytes (test code = Lymphocytes) 13.3 20.0-40.0 [facility] CenterGacfpgyADNCDYDVSI1106-96-55 08:29:00 Test Item Value Reference Range Interpretation Comments Basophils (test code = 0.5 See_Comment [Aut omated message] The Basophils) system which ge nerated this result tra nsmitted reference range : <=1.0. The reference r yared was not used to int erpret this result as normal/abnormal . [facility] CenterTqbbfixTPONXRJUYI3152-81-73 08:29:00 Test Item Value Reference Range Interpretation Comments Monocytes (test code = Monocytes) 13.9 2.0-12.0 [facility] CenterCvheiczYLSXHZSGFU0189-21-36 08:29:00 Test Item Value Reference Range Interpretation Comments Segs (test code = Segs) 70.7 45.0-75.0 [facility] CenterJueyruqHHNJRJKAGL3591-75-90 08:29:00 Test Item Value Reference Range Interpretation Comments Platelet (test code = Platelet) 217 133-450 [facility] CenterGuvfhitHQVDDAUKMS8709-46-80 08:29:00 Test Item Value Reference Range Interpretation Comments MPV (test code = MPV) 7.9 7.4-10.4 [facility] CenterTzxxkunVKXBMXQGSL1584-94-50 08:29:00 Test Item Value Reference Range Interpretation Comments MCHC (test code = MCHC) 33.8 32.0-36.0 [facility]RAKGBFFUL[facility] 08:29:00 Test Item Value Reference Range Interpretation Comments RDW (test code = RDW) 15.0 11.5-14.5 [facility] CenterVsperofBGJUOGCFAW7161-61-63 08:29:00 Test Item Value Reference Range Interpretation Comments Hct (test code = Hct) 21.8 42.0-54.0 [facility] CenterFaupyfjBBLVUVWSBP3879-95-13 08:29:00 Test Item Value Reference Range Interpretation Comments MCV (test code = MCV) 77.9 80.0-94.0 [facility]QbrotezGSXSAVDJZW1693-86-35 08:29:00 Test Item Value Reference Range Interpretation Comments MCH (test code = MCH) 26.3 pg 27.0-31.0 [facility] CenterDxqdgjcHJVEEMWYSX9325-70-53 08:29:00 Test Item Value Reference Range Interpretation Comments RBC (test code = RBC) 2.80 4.70-6.10 [facility] CenterAwyuzpaMCPRXNKLIN1646-04-14 08:29:00 Test Item Value Reference Range Interpretation Comments Hgb (test code = Hgb) 7.4 14.0-18.0 [facility] CenterLoxizyjTGEHARMVZL0250-06-79 08:29:00 Test Item Value Reference Range Interpretation Comments WBC (test code = WBC) 7.1 3.7-10.4 [facility] CenterKltraijSPZKDKEXWR8684-74-75 21:57:00 Test Item Value Reference Range Interpretation Comments Vanco Lvl (test code = Vanco Lvl) 18.3 [facility] CenterJrpmjytNWQQCNSNTA7423-85-52 21:57:00 Test Item Value Reference Range Interpretation Comments Vanco Lvl (test code = Vanco Lvl) 18.3 [facility] CenterannCHEM CSHZI5815-23-78 13:00:00 Test Item Value Reference Range Interpretation Comments Lactic Acid Lvl (test code = Lactic 0.3 0.5-2.2 Acid Lvl) [facility] CenterBhbktmqZSKTPQBUTF0922-96-38 13:00:00 Test Item Value Reference Range Interpretation Comments Hep Bs Ag (test code Negative *NA*(03/17/18 = Hep Bs Ag) 8:00 AM) [facility] CenterScribble PressCHEM XMEWW4865-73-03 13:00:00 Test Item Value Reference Range Interpretation Comments Lactic Acid Lvl (test code = Lactic 0.3 0.5-2.2 Acid Lvl) [facility] CenterHofxifqNZLDAVEWGF0589-44-40 13:00:00 Test Item Value Reference Range Interpretation Comments Hep Bs Ag (test code Negative *NA*(03/17/18 = Hep Bs Ag) 8:00 AM) [facility] CenterScribble PressCHEM [id number] 11:05:00 Test Item Value Reference Range Interpretation Comments Lactic Acid Lvl (test code = Lactic 0.3 0.5-2.2 Acid Lvl) [facility] CenterFriend Trusted [id number] 11:05:00 Test Item Value Reference Range Interpretation Comments Lactic Acid Lvl (test code = Lactic 0.3 0.5-2.2 Acid Lvl) [facility] CenterFluxDrive [id number] 08:09:00 Test Item Value Reference Range Interpretation Comments CK MB Index (test 1.2 1 See_Comment [Automate d message] The code = CK MB Index) system w [facility] generated this result transmit emerson reference range : <=2.5. The reference range was not used to interpr et this result as erinn l/abnormal. [facility] CenterFluxDrive [id number] 08:09:00 Test Item Value Reference Range Interpretation Comments Total CK (test code = Total CK) 122 12-191 [facility] CenterFluxDrive [id number] 08:09:00 Test Item Value Reference Range Interpretation Comments proBNP (test code = 79473 See_Comment [Automa emerson message] The proBNP) system which ge nerated this result tra nsmitted reference range : <=125. The reference r yared was not used to int erpret this result as erinn l/abnormal. [facility] CenterFluxDrive AEHJQKJ1106-98-25 08:09:00 Test Item Value Reference Range Interpretation Comments CK MB (test code = CK MB) 1.5 0.5-3.6 [facility] CenterFluxDrive [id number] 08:09:00 Test Item Value Reference Range Interpretation Comments Troponin-I (test code no gt See_Comment [Auto mated message] The = Troponin-I) system which g enerated this result transmit emerson reference range : <=0.40. The reference r yared was not used to interpr et this result as erinn l/abnormal. [facility]2018-06-09 08:09:00 Test Item Value Reference Range Interpretation Comments Ammonia (test code = Ammonia) 33.0 [facility]2018-06-09 08:09:00 Test Item Value Reference Range Interpretation Comments eGFR (test code = eGFR) 4 [facility]2018-06-09 08:09:00 Test Item Value Reference Range Interpretation Comments Alk Phos (test code = Alk Phos) 89 39-136 [facility]2018-06-09 08:09:00 Test Item Value Reference Range Interpretation Comments Chloride Lvl (test code = Chloride Lvl) 93 95-109 [facility]2018-06-09 08:09:00 Test Item Value Reference Range Interpretation Comments Globulin (test code = Globulin) 4.1 2.7-4.2 [facility]2018-06-09 08:09:00 Test Item Value Reference Range Interpretation Comments A/G Ratio (test code = A/G Ratio) 0.7 1 0.7-1.6 [facility]2018-06-09 08:09:00 Test Item Value Reference Range Interpretation Comments B/C Ratio (test code = B/C Ratio) 7 1 6-25 [facility]2018-06-09 08:09:00 Test Item Value Reference Range Interpretation Comments AGAP (test code = AGAP) 20.4 10.0-20.0 [place] [id number] 08:09:00 Test Item Value Reference Range Interpretation Comments Bili Total (test code = Bili Total) 0.4 0.2-1.3 [facility]2018-06-09 08:09:00 Test Item Value Reference Range Interpretation Comments AST (test code = AST) 11 See_Comment [Auto mated message] The system which ge nerated this result transmit emerson reference range : <=37. The reference range was not used to interpr et this result as erinn l/abnormal. [place] [id number] 08:09:00 Test Item Value Reference Range Interpretation Comments ALT (test code = ALT) 10 See_Comment [Auto mated message] The system which ge nerated this result transmit emerson reference range : <=65. The reference range was not used to interpr et this result as erinn l/abnormal. [facility]2018-06-09 08:09:00 Test Item Value Reference Range Interpretation Comments Albumin Lvl (test code = Albumin Lvl) 2.7 3.5-5.0 [facility]2018-06-09 08:09:00 Test Item Value Reference Range Interpretation Comments CO2 (test code = CO2) 21 24-32 [facility]2018-06-09 08:09:00 Test Item Value Reference Range Interpretation Comments Total Protein (test code = Total 6.8 6.4-8.4 Protein) [facility]2018-06-09 08:09:00 Test Item Value Reference Range Interpretation Comments Calcium Lvl (test code = Calcium Lvl) 7.5 8.5-10.5 [facility]2018-06-09 08:09:00 Test Item Value Reference Range Interpretation Comments Sodium Lvl (test code = Sodium Lvl) 130 135-145 [facility]2018-06-09 08:09:00 Test Item Value Reference Range Interpretation Comments Potassium Lvl (test code = Potassium 4.4 3.5-5.1 Lvl) [facility]2018-06-09 08:09:00 Test Item Value Reference Range Interpretation Comments Creatinine Lvl (test code = Creatinine 12.50 0.50-1.40 Lvl) [facility]2018-06-09 08:09:00 Test Item Value Reference Range Interpretation Comments BUN (test code = BUN) 85 7-22 [facility]2018-06-09 08:09:00 Test Item Value Reference Range Interpretation Comments Glucose Lvl (test code = Glucose Lvl) 172 70-99 [facility]2018-06-09 08:09:00 Test Item Value Reference Range Interpretation Comments Magnesium Lvl (test code = Magnesium 1.9 1.8-2.4 Lvl) [facility]2018-06-09 08:09:00 Test Item Value Reference Range Interpretation Comments Lipase Lvl (test code = Lipase Lvl) 65 73-393 [facility]2018-06-09 08:09:00 Test Item Value Reference Range Interpretation Comments Phosphorus (test code = Phosphorus) 7.5 2.5-4.5 [facility]MpovxjtSURHNAOZET3980-30-56 08:09:00 Test Item Value Reference Range Interpretation Comments Monocytes # (test code 0.8 See_Comment [Aut omated message] The = Monocytes #) system which generated this result tra nsmitted reference range : <=0.8. The reference r yared was not used to int erpret this result as normal/abnormal . [facility] CenterUwtxxuxPPGPETVGJO8565-47-09 08:09:00 Test Item Value Reference Range Interpretation Comments Eosinophils (test code = 0.5 See_Comment [A utomated message] The Eosinophils) system which ge nerated this result tra nsmitted reference range : <=4.0. The reference r yared was not used to int erpret this result as normal/abnormal . [facility] CenterYolytnnJLSFYHPMAM3321-53-76 08:09:00 Test Item Value Reference Range Interpretation Comments Lymphocytes # (test code = Lymphocytes 0.7 1.0-5.5 #) [facility] CenterVxjlupsWMNYQEDSNF6777-52-59 08:09:00 Test Item Value Reference Range Interpretation Comments Basophils (test code = 0.5 See_Comment [Aut omated message] The Basophils) system which ge nerated this result tra nsmitted reference range : <=1.0. The reference r yared was not used to int erpret this result as normal/abnormal . [facility] CenterGnmnqxpDEEHLLLMPA7694-63-37 08:09:00 Test Item Value Reference Range Interpretation Comments Segs-Bands # (test code = Segs-Bands #) 7.4 1.5-8.1 [facility] CenterOwbgejsULCSVCFMNR7852-04-57 08:09:00 Test Item Value Reference Range Interpretation Comments Microcyte (test code = 1+ *ABN*(03/17/18 3:09 Microcyte) AM) [facility] CenterUldlriiZFMZABJKBS7635-19-70 08:09:00 Test Item Value Reference Range Interpretation Comments Lymphocytes (test code = Lymphocytes) 7.7 20.0-40.0 [facility] CenterQexanhmFVQSXPRXEQ7661-17-06 08:09:00 Test Item Value Reference Range Interpretation Comments Monocytes (test code = Monocytes) 9.3 2.0-12.0 [facility] CenterRwxxxloMLWSSPAKFE9121-31-82 08:09:00 Test Item Value Reference Range Interpretation Comments Segs (test code = Segs) 82.0 45.0-75.0 [facility] CenterSojpfeiHXNGYZESBR5356-27-29 08:09:00 Test Item Value Reference Range Interpretation Comments INR (test code = INR) 1.26 1 0.85-1.17 [facility] CenterGyuvmtwJMYRLBHADB4112-74-18 08:09:00 Test Item Value Reference Range Interpretation Comments PT (test code = PT) 15.9 s 12.0-14.7 [facility] CenterEgqzzzsQJWJRMLBQT6984-22-84 08:09:00 Test Item Value Reference Range Interpretation Comments MCH (test code = MCH) 26.4 pg 27.0-31.0 [facility] CenterJyhhpugUGQWEHXDQV5046-69-90 08:09:00 Test Item Value Reference Range Interpretation Comments MCV (test code = MCV) 77.8 80.0-94.0 [facility] CenterUrrkenaDTLXLYJEXP0193-78-19 08:09:00 Test Item Value Reference Range Interpretation Comments Hct (test code = Hct) 22.2 42.0-54.0 [facility] CenterAyfykqyFIPWKVHKBA3306-54-38 08:09:00 Test Item Value Reference Range Interpretation Comments Hgb (test code = Hgb) 7.5 14.0-18.0 [facility] CenterVkddfjoCBMLXBXAEO8944-78-57 08:09:00 Test Item Value Reference Range Interpretation Comments WBC (test code = WBC) 9.0 3.7-10.4 [facility] CenterNunltkgCXDYHCKYZD4996-25-64 08:09:00 Test Item Value Reference Range Interpretation Comments RBC (test code = RBC) 2.86 4.70-6.10 [facility] CenterGmiyrprIRERMIFOUJ3532-75-23 08:09:00 Test Item Value Reference Range Interpretation Comments MPV (test code = MPV) 7.4 7.4-10.4 [facility] CenterSxnpdauRSNXCCCYHL7325-97-59 08:09:00 Test Item Value Reference Range Interpretation Comments Platelet (test code = Platelet) 220 133-450 [facility] CenterFewvndjTYIILZPVMQ1760-22-19 08:09:00 Test Item Value Reference Range Interpretation Comments RDW (test code = RDW) 15.1 11.5-14.5 [facility] CenterKdkskmcOBFXADOFZA6687-84-48 08:09:00 Test Item Value Reference Range Interpretation Comments MCHC (test code = MCHC) 34.0 32.0-36.0 [facility] XASGMJC9378-38-12 08:09:00 Test Item Value Reference Range Interpretation Comments CK MB Index (test 1.2 1 See_Comment [Automate d message] The code = CK MB Index) system w [facility] generated this result transmit emerson reference range : <=2.5. The reference range was not used to interpr et this result as erinn l/abnormal. [facility] LVIQYKR6821-02-31 08:09:00 Test Item Value Reference Range Interpretation Comments Total CK (test code = Total CK) 122 12-191 [facility] 08:09:00 Test Item Value Reference Range Interpretation Comments proBNP (test code = 47927 See_Comment [Automa emerson message] The proBNP) system which ge nerated this result tra nsmitted reference range : <=125. The reference r yared was not used to int erpret this result as erinn l/abnormal. [facility] [employer]2018-06-09 08:09:00 Test Item Value Reference Range Interpretation Comments CK MB (test code = CK MB) 1.5 0.5-3.6 [facility]2018-[facility] 08:09:00 Test Item Value Reference Range Interpretation Comments Troponin-I (test code no gt See_Comment [Auto mated message] The = Troponin-I) system which g enerated this result transmit emerson reference range : <=0.40. The reference r yared was not used to interpr et this result as erinn l/abnormal. [facility] [employer] [id number] 08:09:00 Test Item Value Reference Range Interpretation Comments Ammonia (test code = Ammonia) 33.0 [facility]2018-06-09 08:09:00 Test Item Value Reference Range Interpretation Comments eGFR (test code = eGFR) 4 [facility] [employer] [id number] 08:09:00 Test Item Value Reference Range Interpretation Comments Alk Phos (test code = Alk Phos) 89 39-136 [facility] [employer] [id number] 08:09:00 Test Item Value Reference Range Interpretation Comments Chloride Lvl (test code = Chloride Lvl) 93 95-109 [facility]2018-06-09 08:09:00 Test Item Value Reference Range Interpretation Comments Globulin (test code = Globulin) 4.1 2.7-4.2 [facility]2018-06-09 08:09:00 Test Item Value Reference Range Interpretation Comments A/G Ratio (test code = A/G Ratio) 0.7 1 0.7-1.6 [facility]2018-06-09 08:09:00 Test Item Value Reference Range Interpretation Comments B/C Ratio (test code = B/C Ratio) 7 1 6-25 [facility]2018-06-09 08:09:00 Test Item Value Reference Range Interpretation Comments AGAP (test code = AGAP) 20.4 10.0-20.0 [facility]2018-06-09 08:09:00 Test Item Value Reference Range Interpretation Comments Bili Total (test code = Bili Total) 0.4 0.2-1.3 [facility]2018-06-09 08:09:00 Test Item Value Reference Range Interpretation Comments AST (test code = AST) 11 See_Comment [Auto mated message] The system which ge nerated this result transmit emerson reference range : <=37. The reference range was not used to interpr et this result as erinn l/abnormal. [facility]2018-06-09 08:09:00 Test Item Value Reference Range Interpretation Comments ALT (test code = ALT) 10 See_Comment [Auto mated message] The system which ge nerated this result transmit emerson reference range : <=65. The reference range was not used to interpr et this result as erinn l/abnormal. [facility]2018-06-09 08:09:00 Test Item Value Reference Range Interpretation Comments Albumin Lvl (test code = Albumin Lvl) 2.7 3.5-5.0 [facility]2018-06-09 08:09:00 Test Item Value Reference Range Interpretation Comments CO2 (test code = CO2) 21 24-32 [facility]2018-06-09 08:09:00 Test Item Value Reference Range Interpretation Comments Total Protein (test code = Total 6.8 6.4-8.4 Protein) [place] 943368-06-09 08:09:00 Test Item Value Reference Range Interpretation Comments Calcium Lvl (test code = Calcium Lvl) 7.5 8.5-10.5 [facility]2018-06-09 08:09:00 Test Item Value Reference Range Interpretation Comments Sodium Lvl (test code = Sodium Lvl) 130 135-145 [facility]2018-06-09 08:09:00 Test Item Value Reference Range Interpretation Comments Potassium Lvl (test code = Potassium 4.4 3.5-5.1 Lvl) [facility]2018-06-09 08:09:00 Test Item Value Reference Range Interpretation Comments Creatinine Lvl (test code = Creatinine 12.50 0.50-1.40 Lvl) [place] 943368-06-09 08:09:00 Test Item Value Reference Range Interpretation Comments BUN (test code = BUN) 85 7-22 [place] 943368-06-09 08:09:00 Test Item Value Reference Range Interpretation Comments Glucose Lvl (test code = Glucose Lvl) 172 70-99 [facility]2018-06-09 08:09:00 Test Item Value Reference Range Interpretation Comments Magnesium Lvl (test code = Magnesium 1.9 1.8-2.4 Lvl) [facility]2018-06-09 08:09:00 Test Item Value Reference Range Interpretation Comments Lipase Lvl (test code = Lipase Lvl) 65 73-393 [place] 943368-06-09 08:09:00 Test Item Value Reference Range Interpretation Comments Phosphorus (test code = Phosphorus) 7.5 2.5-4.5 [facility] CenterBqcyhbhEVGIYMOERN8294-92-55 08:09:00 Test Item Value Reference Range Interpretation Comments Monocytes # (test code 0.8 See_Comment [Aut omated message] The = Monocytes #) system which generated this result tra nsmitted reference range : <=0.8. The reference r yared was not used to int erpret this result as normal/abnormal . [facility] CenterPcuztvgVXCUWYRDYQ1044-16-42 08:09:00 Test Item Value Reference Range Interpretation Comments Eosinophils (test code = 0.5 See_Comment [A utomated message] The Eosinophils) system which ge nerated this result tra nsmitted reference range : <=4.0. The reference r yared was not used to int erpret this result as normal/abnormal . [facility] CenterCiykklxTNQGPMOJNQ8686-15-05 08:09:00 Test Item Value Reference Range Interpretation Comments Lymphocytes # (test code = Lymphocytes 0.7 1.0-5.5 #) [facility] CenterKfiuvevTDZUZCYAGS0665-72-41 08:09:00 Test Item Value Reference Range Interpretation Comments Basophils (test code = 0.5 See_Comment [Aut omated message] The Basophils) system which ge nerated this result tra nsmitted reference range : <=1.0. The reference r yared was not used to int erpret this result as normal/abnormal . [facility] CenterYxpgbboSYZFNKEVWT0151-39-97 08:09:00 Test Item Value Reference Range Interpretation Comments Segs-Bands # (test code = Segs-Bands #) 7.4 1.5-8.1 [facility] CenterBkwwgvdDHEIHJGKNS6864-24-34 08:09:00 Test Item Value Reference Range Interpretation Comments Microcyte (test code = 1+ *ABN*(03/17/18 3:09 Microcyte) AM) [facility] CenterVqouefcMHEQWUEILK3255-48-46 08:09:00 Test Item Value Reference Range Interpretation Comments Lymphocytes (test code = Lymphocytes) 7.7 20.0-40.0 [facility] CenterInjhjzeOKWIRSILUT5664-31-96 08:09:00 Test Item Value Reference Range Interpretation Comments Monocytes (test code = Monocytes) 9.3 2.0-12.0 [facility] CenterAtmxmttEGGSFNKTHZ7547-26-85 08:09:00 Test Item Value Reference Range Interpretation Comments Segs (test code = Segs) 82.0 45.0-75.0 [facility] CenterEctpctmDRZLRMQRVR6724-26-18 08:09:00 Test Item Value Reference Range Interpretation Comments INR (test code = INR) 1.26 1 0.85-1.17 [facility] CenterBssuamfFAHTTMKGKT3360-64-92 08:09:00 Test Item Value Reference Range Interpretation Comments PT (test code = PT) 15.9 s 12.0-14.7 [facility] CenterKduyesaLMYIXUDHJN9054-76-72 08:09:00 Test Item Value Reference Range Interpretation Comments MCH (test code = MCH) 26.4 pg 27.0-31.0 [facility] CenterQeriibcQEOMGPCRAU0686-90-13 08:09:00 Test Item Value Reference Range Interpretation Comments MCV (test code = MCV) 77.8 80.0-94.0 [facility] CenterLebvewgFADCQPXYEX1965-77-38 08:09:00 Test Item Value Reference Range Interpretation Comments Hct (test code = Hct) 22.2 42.0-54.0 [facility] CenterSormywlVZXKVANIZG8310-83-86 08:09:00 Test Item Value Reference Range Interpretation Comments Hgb (test code = Hgb) 7.5 14.0-18.0 [facility] CenterMnxmekwXZGUSMJARZ1242-98-73 08:09:00 Test Item Value Reference Range Interpretation Comments WBC (test code = WBC) 9.0 3.7-10.4 [facility] CenterYelbjfpOPUXBYCWQE8952-27-32 08:09:00 Test Item Value Reference Range Interpretation Comments RBC (test code = RBC) 2.86 4.70-6.10 [facility] CenterCafpofsRNGHDUEBKF8929-19-63 08:09:00 Test Item Value Reference Range Interpretation Comments MPV (test code = MPV) 7.4 7.4-10.4 [facility] CenterXqhqiehBOPKGQPECD8983-71-08 08:09:00 Test Item Value Reference Range Interpretation Comments Platelet (test code = Platelet) 220 133-450 [facility] CenterYcqdvhoKVRMQWUJHZ9235-02-65 08:09:00 Test Item Value Reference Range Interpretation Comments RDW (test code = RDW) 15.1 11.5-14.5 [facility] CenterDgoeyctIXOZHSQWUH3878-93-29 08:09:00 Test Item Value Reference Range Interpretation Comments MCHC (test code = MCHC) 34.0 32.0-36.0 [facility] HRKNIMA9525-57-99 00:37:00 Test Item Value Reference Range Interpretation Comments CK MB Index (test 1.7 1 See_Comment [Automate d message] The code = CK MB Index) system w [facility] generated this result transmit emerson reference range : <=2.5. The reference range was not used to interpr et this result as erinn l/abnormal. [facility] SAEXATG7786-12-96 00:37:00 Test Item Value Reference Range Interpretation Comments CK MB (test code = CK MB) 2.9 0.5-3.6 [facility] JZUYAZL4752-35-06 00:37:00 Test Item Value Reference Range Interpretation Comments Troponin-I (test code no gt See_Comment [Auto mated message] The = Troponin-I) system which g enerated this result transmit emerson reference range : <=0.40. The reference r yared was not used to interpr et this result as erinn l/abnormal. [facility] GCOZJJW2285-49-88 00:37:00 Test Item Value Reference Range Interpretation Comments Total CK (test code = Total CK) 166 12-191 [facility] CenterFlux[facility] LFFCFGR2185-76-70 00:37:00 Test Item Value Reference Range Interpretation Comments proBNP (test code = 4827 See_Comment [Automa emerson message] The proBNP) system which ge nerated this result tra nsmitted reference range : <=125. The reference r yared was not used to int erpret this result as erinn l/abnormal. [facility]2018-04-17 00:37:00 Test Item Value Reference Range Interpretation Comments Magnesium Lvl (test code = Magnesium 1.9 1.8-2.4 Lvl) [facility] [employer] [id number] 00:37:00 Test Item Value Reference Range Interpretation Comments Phosphorus (test code = Phosphorus) 9.1 2.5-4.5 [facility] [employer] [id number] 00:37:00 Test Item Value Reference Range Interpretation Comments eGFR (test code = eGFR) 5 [facility] [employer] [id number] 00:37:00 Test Item Value Reference Range Interpretation Comments Alk Phos (test code = Alk Phos) 115 39-136 [facility] [employer] [id number] 00:37:00 Test Item Value Reference Range Interpretation Comments AST (test code = AST) 23 See_Comment [Auto mated message] The system which ge nerated this result transmit emerson reference range : <=37. The reference range was not used to interpr et this result as erinn l/abnormal. [facility]2018-04-17 00:37:00 Test Item Value Reference Range Interpretation Comments ALT (test code = ALT) 24 See_Comment [Auto mated message] The system which ge nerated this result transmit emerson reference range : <=65. The reference range was not used to interpr et this result as erinn l/abnormal. [facility]2018-04-17 00:37:00 Test Item Value Reference Range Interpretation Comments A/G Ratio (test code = A/G Ratio) 0.8 1 0.7-1.6 [facility]2018-04-17 00:37:00 Test Item Value Reference Range Interpretation Comments Globulin (test code = Globulin) 4.0 2.7-4.2 [facility]2018-04-17 00:37:00 Test Item Value Reference Range Interpretation Comments Bili Total (test code = Bili Total) 0.4 0.2-1.3 [facility]2018-04-17 00:37:00 Test Item Value Reference Range Interpretation Comments Potassium Lvl (test code = Potassium 4.4 3.5-5.1 Lvl) [facility]2018-04-17 00:37:00 Test Item Value Reference Range Interpretation Comments Calcium Lvl (test code = Calcium Lvl) 6.7 8.5-10.5 [facility]2018-04-17 00:37:00 Test Item Value Reference Range Interpretation Comments Sodium Lvl (test code = Sodium Lvl) 130 135-145 [facility]2018-04-17 00:37:00 Test Item Value Reference Range Interpretation Comments Creatinine Lvl (test code = Creatinine 11.00 0.50-1.40 Lvl) [facility]2018-04-17 00:37:00 Test Item Value Reference Range Interpretation Comments AGAP (test code = AGAP) 17.4 10.0-20.0 [facility]2018-04-17 00:37:00 Test Item Value Reference Range Interpretation Comments CO2 (test code = CO2) 25 24-32 [facility]2018-04-17 00:37:00 Test Item Value Reference Range Interpretation Comments Chloride Lvl (test code = Chloride Lvl) 92 95-109 [facility]2018-04-17 00:37:00 Test Item Value Reference Range Interpretation Comments Albumin Lvl (test code = Albumin Lvl) 3.4 3.5-5.0 [facility]2018-04-17 00:37:00 Test Item Value Reference Range Interpretation Comments Total Protein (test code = Total 7.4 6.4-8.4 Protein) [facility]2018-04-17 00:37:00 Test Item Value Reference Range Interpretation Comments B/C Ratio (test code = B/C Ratio) 8 1 6-25 [facility]2018-04-17 00:37:00 Test Item Value Reference Range Interpretation Comments BUN (test code = BUN) 84 7-22 [facility]2018-04-17 00:37:00 Test Item Value Reference Range Interpretation Comments Glucose Lvl (test code = Glucose Lvl) 123 70-99 [facility] CenterOeimwncOWTLXDWGJH3889-10-11 00:37:00 Test Item Value Reference Range Interpretation Comments Lymphocytes (test code = Lymphocytes) 21.5 20.0-40.0 [facility] CenterNapgasjETGGTUCPRS4734-40-86 00:37:00 Test Item Value Reference Range Interpretation Comments Lymphocytes # (test code = Lymphocytes 1.6 1.0-5.5 #) [facility] CenterCpxfbvoYMCGZKERSF5254-77-65 00:37:00 Test Item Value Reference Range Interpretation Comments Eosinophils # (test code 0.3 See_Comment [A utomated message] The = Eosinophils #) system whic h generated this result tra nsmitted reference range : <=0.5. The reference r yared was not used to int erpret this result as normal/abnormal . [facility] CenterEomhinoOPTCTHYDCE1908-92-42 00:37:00 Test Item Value Reference Range Interpretation Comments Segs (test code = Segs) 63.7 45.0-75.0 [facility] CenterYfxtaxvRBZOAQNHBL3368-67-52 00:37:00 Test Item Value Reference Range Interpretation Comments Segs-Bands # (test code = Segs-Bands #) 4.8 1.5-8.1 [facility] CenterFkxrhesSMFFROYHDK0313-65-17 00:37:00 Test Item Value Reference Range Interpretation Comments Eosinophils (test code = 3.5 See_Comment [A utomated message] The Eosinophils) system which ge nerated this result tra nsmitted reference range : <=4.0. The reference r yared was not used to int erpret this result as normal/abnormal . [facility] CenterBjkuylgOXDWLQOJPQ3339-13-24 00:37:00 Test Item Value Reference Range Interpretation Comments Monocytes (test code = Monocytes) 10.4 2.0-12.0 [facility] CenterPucoijeTGHEBMHQYS4219-03-82 00:37:00 Test Item Value Reference Range Interpretation Comments Basophils (test code = 0.9 See_Comment [Aut omated message] The Basophils) system which ge nerated this result tra nsmitted reference range : <=1.0. The reference r yared was not used to int erpret this result as normal/abnormal . [facility] CenterKgctsohHVOOJUCCJY3435-29-82 00:37:00 Test Item Value Reference Range Interpretation Comments Basophils # (test code 0.1 See_Comment [Aut omated message] The = Basophils #) system which generated this result tra nsmitted reference range : <=0.2. The reference r yared was not used to int erpret this result as normal/abnormal . [facility] CenterZplwhcpKQBVAAXWVV1659-52-64 00:37:00 Test Item Value Reference Range Interpretation Comments Monocytes # (test code 0.8 See_Comment [Aut omated message] The = Monocytes #) system which generated this result tra nsmitted reference range : <=0.8. The reference r yared was not used to int erpret this result as normal/abnormal . [facility] CenterUjbxgxeXKWQQVXJTQ7859-11-34 00:37:00 Test Item Value Reference Range Interpretation Comments INR (test code = INR) 1.06 1 0.85-1.17 [facility] CenterZmizypyPRRDZSLWLZ4852-85-53 00:37:00 Test Item Value Reference Range Interpretation Comments PT (test code = PT) 13.8 s 12.0-14.7 [facility] CenterKclksueQFHKBIWDFH9042-91-73 00:37:00 Test Item Value Reference Range Interpretation Comments PTT (test code = PTT) 35.7 s 22.9-35.8 [facility] CenterKkorejcIWTAHBQRMW8888-03-64 00:37:00 Test Item Value Reference Range Interpretation Comments Platelet (test code = Platelet) 238 133-450 [facility] CenterJcbutsdLLMLPZKACC6289-21-18 00:37:00 Test Item Value Reference Range Interpretation Comments MPV (test code = MPV) 7.5 7.4-10.4 [facility] CenterOpxwiikBDONEODMZC6192-63-23 00:37:00 Test Item Value Reference Range Interpretation Comments Hct (test code = Hct) 25.4 42.0-54.0 [facility] CenterJthjbprVTOAJATTYV7803-16-99 00:37:00 Test Item Value Reference Range Interpretation Comments MCV (test code = MCV) 80.3 80.0-94.0 [facility] CenterJnucwtdUMTCESTIYJ5533-55-11 00:37:00 Test Item Value Reference Range Interpretation Comments MCH (test code = MCH) 28.2 pg 27.0-31.0 [facility] CenterEfvmoxhHVGBKKMUOS8270-93-49 00:37:00 Test Item Value Reference Range Interpretation Comments Hgb (test code = Hgb) 8.9 14.0-18.0 [facility] CenterYgysvdtVMYQOAMICI3520-52-04 00:37:00 Test Item Value Reference Range Interpretation Comments MCHC (test code = MCHC) 35.1 32.0-36.0 [facility] CenterDdlfqolFBLDDRGNXX0454-13-41 00:37:00 Test Item Value Reference Range Interpretation Comments RDW (test code = RDW) 13.9 11.5-14.5 [facility] CenterBecsockKCXBKVRHYV5789-00-55 00:37:00 Test Item Value Reference Range Interpretation Comments WBC (test code = WBC) 7.6 3.7-10.4 [facility] CenterLbuqeidZBYGXSLTEA3947-11-65 00:37:00 Test Item Value Reference Range Interpretation Comments RBC (test code = RBC) 3.16 4.70-6.10 [facility] AND OGIBQ9857-61-98 00:37:00 Test Item Value Reference Range Interpretation Comments UA Urobilinogen (test code = UA <=1.0 mg/dL 0.1-1.0 Urobilinogen) [facility] AND [id number] 00:37:00 Test Item Value Reference Range Interpretation Comments UA Glucose (test code = UA Glucose) 50 [facility] AND [id number] 00:37:00 Test Item Value Reference Range Interpretation Comments UA Color (test code = UA Color) STRAW [facility] AND [id number] 00:37:00 Test Item Value Reference Range Interpretation Comments UA Sq Epi (test code = UA Sq Epi) Few /LPF [facility] AND [id number] 00:37:00 Test Item Value Reference Range Interpretation Comments UA WBC (test code = 8 See_Comment [Automa emerson message] The UA WBC) system which ge nerated this result transmit emerson reference range : <=5. The reference range was not used to interpr et this result as erinn l/abnormal. [facility] AND [id number] 00:37:00 Test Item Value Reference Range Interpretation Comments UA Mucus (test code = UA Mucus) [facility] [id number] 00:37:00 Test Item Value Reference Range Interpretation Comments UA Bacteria (test code = UA Moderate /HPF Bacteria) [facility] [id number] 00:37:00 Test Item Value Reference Range Interpretation Comments UA Leuk Est (test code Small *ABN*(01/22/18 = UA Leuk Est) 7:37 PM) [facility] [id number] 00:37:00 Test Item Value Reference Range Interpretation Comments UA Protein (test code = UA >=300 mg/dL Protein) [facility] [id number] 00:37:00 Test Item Value Reference Range Interpretation Comments UA Ketones (test code = UA Negative mg/dL Ketones) [facility] [id number] 00:37:00 Test Item Value Reference Range Interpretation Comments UA pH (test code = UA pH) 6.0 1 5.0-8.0 [facility] [id number] 00:37:00 Test Item Value Reference Range Interpretation Comments UA Turbidity (test code = Clear (01/22/18 7:37 [facility]A Turbidity) PM) [facility] [id number] 00:37:00 Test Item Value Reference Range Interpretation Comments UA Spec Grav (test code = UA Spec 1.005 1 Grav) [facility] [id number] 00:37:00 Test Item Value Reference Range Interpretation Comments UA Nitrite (test code Negative (01/22/18 7:37 = UA Nitrite) PM) [facility] [id number] 00:37:00 Test Item Value Reference Range Interpretation Comments UA Blood (test code = Small *ABN*(01/22/18 UA Blood) 7:37 PM) [facility] [id number] 00:37:00 Test Item Value Reference Range Interpretation Comments UA Bili (test code = Negative *NA*(01/22/18 UA Bili) 7:37 PM) [facility] [id number] 00:37:00 Test Item Value Reference Range Interpretation Comments CK MB Index (test 1.7 1 See_Comment [Automate d message] The code = CK MB Index) system w hich generated this result transmit emerson reference range : <=2.5. The reference range was not used to interpr et this result as erinn l/abnormal. [facility] [employer]2018-04-17 00:37:00 Test Item Value Reference Range Interpretation Comments CK MB (test code = CK MB) 2.9 0.5-3.6 [facility] 00:37:00 Test Item Value Reference Range Interpretation Comments Troponin-I (test code no gt See_Comment [Auto mated message] The = Troponin-I) system which g enerated this result transmit emerson reference range : <=0.40. The reference r yared was not used to interpr et this result as erinn l/abnormal. [facility] [employer]2018-04-17 00:37:00 Test Item Value Reference Range Interpretation Comments Total CK (test code = Total CK) 166 12-191 [facility] [employer]2018-04-17 00:37:00 Test Item Value Reference Range Interpretation Comments proBNP (test code = 4827 See_Comment [Automa emerson message] The proBNP) system which ge nerated this result tra nsmitted reference range : <=125. The reference r yared was not used to int erpret this result as erinn l/abnormal. [facility] [employer]2018-04-17 00:37:00 Test Item Value Reference Range Interpretation Comments Magnesium Lvl (test code = Magnesium 1.9 1.8-2.4 Lvl) [facility] [employer] [id number] 00:37:00 Test Item Value Reference Range Interpretation Comments Phosphorus (test code = Phosphorus) 9.1 2.5-4.5 [facility] [employer] [id number] 00:37:00 Test Item Value Reference Range Interpretation Comments eGFR (test code = eGFR) 5 [facility] [employer] [id number] 00:37:00 Test Item Value Reference Range Interpretation Comments Alk Phos (test code = Alk Phos) 115 39-136 [facility] [employer] [id number] 00:37:00 Test Item Value Reference Range Interpretation Comments AST (test code = AST) 23 See_Comment [Auto mated message] The system which ge nerated this result transmit emerson reference range : <=37. The reference range was not used to interpr et this result as erinn l/abnormal. [facility]2018-04-17 00:37:00 Test Item Value Reference Range Interpretation Comments ALT (test code = ALT) 24 See_Comment [Auto mated message] The system which ge nerated this result transmit emerson reference range : <=65. The reference range was not used to interpr et this result as erinn l/abnormal. [facility]2018-04-17 00:37:00 Test Item Value Reference Range Interpretation Comments A/G Ratio (test code = A/G Ratio) 0.8 1 0.7-1.6 [facility]2018-04-17 00:37:00 Test Item Value Reference Range Interpretation Comments Globulin (test code = Globulin) 4.0 2.7-4.2 [facility]2018-04-17 00:37:00 Test Item Value Reference Range Interpretation Comments Bili Total (test code = Bili Total) 0.4 0.2-1.3 [facility]2018-04-17 00:37:00 Test Item Value Reference Range Interpretation Comments Potassium Lvl (test code = Potassium 4.4 3.5-5.1 Lvl) [facility]2018-04-17 00:37:00 Test Item Value Reference Range Interpretation Comments Calcium Lvl (test code = Calcium Lvl) 6.7 8.5-10.5 [facility]2018-04-17 00:37:00 Test Item Value Reference Range Interpretation Comments Sodium Lvl (test code = Sodium Lvl) 130 135-145 [facility]2018-04-17 00:37:00 Test Item Value Reference Range Interpretation Comments Creatinine Lvl (test code = Creatinine 11.00 0.50-1.40 Lvl) [facility]2018-04-17 00:37:00 Test Item Value Reference Range Interpretation Comments AGAP (test code = AGAP) 17.4 10.0-20.0 [facility]2018-04-17 00:37:00 Test Item Value Reference Range Interpretation Comments CO2 (test code = CO2) 25 24-32 [facility]2018-04-17 00:37:00 Test Item Value Reference Range Interpretation Comments Chloride Lvl (test code = Chloride Lvl) 92 95-109 [facility]2018-04-17 00:37:00 Test Item Value Reference Range Interpretation Comments Albumin Lvl (test code = Albumin Lvl) 3.4 3.5-5.0 [facility]2018-04-17 00:37:00 Test Item Value Reference Range Interpretation Comments Total Protein (test code = Total 7.4 6.4-8.4 Protein) [facility]2018-04-17 00:37:00 Test Item Value Reference Range Interpretation Comments B/C Ratio (test code = B/C Ratio) 8 1 6-25 [facility]2018-04-17 00:37:00 Test Item Value Reference Range Interpretation Comments BUN (test code = BUN) 84 7-22 [facility]2018-04-17 00:37:00 Test Item Value Reference Range Interpretation Comments Glucose Lvl (test code = Glucose Lvl) 123 70-99 [facility]AxnsbiqDNEANGHCBP3842-68-14 00:37:00 Test Item Value Reference Range Interpretation Comments Lymphocytes (test code = Lymphocytes) 21.5 20.0-40.0 [facility] CenterHpkduoxCBXKGWDAJW1342-53-95 00:37:00 Test Item Value Reference Range Interpretation Comments Lymphocytes # (test code = Lymphocytes 1.6 1.0-5.5 #) [facility] CenterRsklsjyYMPTISBQFX1216-48-09 00:37:00 Test Item Value Reference Range Interpretation Comments Eosinophils # (test code 0.3 See_Comment [A utomated message] The = Eosinophils #) system [facility] generated this result tra nsmitted reference range : <=0.5. The reference r yared was not used to int erpret this result as normal/abnormal . [facility] CenterDadncvvIMUZZLLVXF5828-08-02 00:37:00 Test Item Value Reference Range Interpretation Comments Segs (test code = Segs) 63.7 45.0-75.0 [facility] CenterZzkxycpROIKBJDGRL5703-20-13 00:37:00 Test Item Value Reference Range Interpretation Comments Segs-Bands # (test code = Segs-Bands #) 4.8 1.5-8.1 [facility] CenterXrctjgrNPSSOFKMCO1893-22-79 00:37:00 Test Item Value Reference Range Interpretation Comments Eosinophils (test code = 3.5 See_Comment [A utomated message] The Eosinophils) system which ge nerated this result tra nsmitted reference range : <=4.0. The reference r yared was not used to int erpret this result as normal/abnormal . [facility] CenterCavcvyvCOVGHCIPNH1910-82-98 00:37:00 Test Item Value Reference Range Interpretation Comments Monocytes (test code = Monocytes) 10.4 2.0-12.0 [facility] CenterLoobzagRQOZKDBJZM3602-02-83 00:37:00 Test Item Value Reference Range Interpretation Comments Basophils (test code = 0.9 See_Comment [Aut omated message] The Basophils) system which ge nerated this result tra nsmitted reference range : <=1.0. The reference r yared was not used to int erpret this result as normal/abnormal . [facility] CenterTzhbtzaGUOLDOWVDR8975-61-03 00:37:00 Test Item Value Reference Range Interpretation Comments Basophils # (test code 0.1 See_Comment [Aut omated message] The = Basophils #) system which generated this result tra nsmitted reference range : <=0.2. The reference r yared was not used to int erpret this result as normal/abnormal . [facility] CenterEsvvndlMXSUSEZGLJ3098-52-77 00:37:00 Test Item Value Reference Range Interpretation Comments Monocytes # (test code 0.8 See_Comment [Aut omated message] The = Monocytes #) system which generated this result tra nsmitted reference range : <=0.8. The reference r yared was not used to int erpret this result as normal/abnormal . [facility] CenterJhcjyjpOGWNUOULMM7073-03-84 00:37:00 Test Item Value Reference Range Interpretation Comments INR (test code = INR) 1.06 1 0.85-1.17 [facility] CenterBhypecnVACDHORHVR6733-70-79 00:37:00 Test Item Value Reference Range Interpretation Comments PT (test code = PT) 13.8 s 12.0-14.7 [facility] CenterLkusptpOSLFGIGIGF3572-80-69 00:37:00 Test Item Value Reference Range Interpretation Comments PTT (test code = PTT) 35.7 s 22.9-35.8 [facility] CenterCduykdnIGGOOTOYTF3852-48-70 00:37:00 Test Item Value Reference Range Interpretation Comments Platelet (test code = Platelet) 238 133-450 [facility] CenterIxjrpebGGETPTLPWB6564-30-24 00:37:00 Test Item Value Reference Range Interpretation Comments MPV (test code = MPV) 7.5 7.4-10.4 [facility] CenterTlvtwkaRLYWGZWVRE2502-60-63 00:37:00 Test Item Value Reference Range Interpretation Comments Hct (test code = Hct) 25.4 42.0-54.0 [facility] CenterEnsjzkuGSERAFJBUS8465-17-40 00:37:00 Test Item Value Reference Range Interpretation Comments MCV (test code = MCV) 80.3 80.0-94.0 [facility] CenterRnvczkoENLPJTEVLV8440-13-14 00:37:00 Test Item Value Reference Range Interpretation Comments MCH (test code = MCH) 28.2 pg 27.0-31.0 [facility] CenterRjsgagiRNHETAIEHY1802-63-60 00:37:00 Test Item Value Reference Range Interpretation Comments Hgb (test code = Hgb) 8.9 14.0-18.0 [facility] CenterIrkjtihXYFLUKKGTP5992-34-86 00:37:00 Test Item Value Reference Range Interpretation Comments MCHC (test code = MCHC) 35.1 32.0-36.0 [facility] CenterZwgrelpARRJAVMXQS8359-40-51 00:37:00 Test Item Value Reference Range Interpretation Comments RDW (test code = RDW) 13.9 11.5-14.5 [facility] CenterYijuebvTVTXHURJJJ9109-06-99 00:37:00 Test Item Value Reference Range Interpretation Comments WBC (test code = WBC) 7.6 3.7-10.4 [facility] CenterCyjjdaqEIBAFRATRO4472-22-63 00:37:00 Test Item Value Reference Range Interpretation Comments RBC (test code = RBC) 3.16 4.70-6.10 [facility] AND [id number] 00:37:00 Test Item Value Reference Range Interpretation Comments UA Urobilinogen (test code = UA <=1.0 mg/dL 0.1-1.0 Urobilinogen) [facility] AND [id number] 00:37:00 Test Item Value Reference Range Interpretation Comments UA Glucose (test code = UA Glucose) 50 [facility] AND [id number] 00:37:00 Test Item Value Reference Range Interpretation Comments UA Color (test code = UA Color) STRAW [facility] AND [id number] 00:37:00 Test Item Value Reference Range Interpretation Comments UA Sq Epi (test code = UA Sq Epi) Few /LPF [facility] AND [id number] 00:37:00 Test Item Value Reference Range Interpretation Comments UA WBC (test code = 8 See_Comment [Automa emerson message] The UA WBC) system which ge nerated this result transmit emerson reference range : <=5. The reference range was not used to interpr et this result as erinn l/abnormal. [facility] AND [id number] 00:37:00 Test Item Value Reference Range Interpretation Comments UA Mucus (test code = UA Mucus) Few /LPF [facility] AND [id number] 00:37:00 Test Item Value Reference Range Interpretation Comments UA Bacteria (test code = UA Moderate /HPF Bacteria) [facility] AND [id number] 00:37:00 Test Item Value Reference Range Interpretation Comments UA Leuk Est (test code Small *ABN*(01/22/18 = UA Leuk Est) 7:37 PM) [facility] AND [id number] 00:37:00 Test Item Value Reference Range Interpretation Comments UA Protein (test code = UA >=300 mg/dL Protein) [facility] AND [id number] 00:37:00 Test Item Value Reference Range Interpretation Comments UA Ketones (test code = UA Negative mg/dL Ketones) [facility] AND [id number] 00:37:00 Test Item Value Reference Range Interpretation Comments UA pH (test code = UA pH) 6.0 1 5.0-8.0 [facility] AND [id number] 00:37:00 Test Item Value Reference Range Interpretation Comments UA Turbidity (test code = Clear (01/22/18 7:37 UA Turbidity) PM) [facility] AND [id number] 00:37:00 Test Item Value Reference Range Interpretation Comments UA Spec Grav (test code = UA Spec 1.005 1 Grav) [facility] AND [id number] 00:37:00 Test Item Value Reference Range Interpretation Comments UA Nitrite (test code Negative (01/22/18 7:37 = UA Nitrite) PM) [facility] AND [id number] 00:37:00 Test Item Value Reference Range Interpretation Comments UA Blood (test code = Small *ABN*(01/22/18 UA Blood) 7:37 PM) [facility] AND [id number] 00:37:00 Test Item Value Reference Range Interpretation Comments UA Bili (test code = Negative *NA*(01/22/18 UA Bili) 7:37 PM) [facility]2018-03-14 10:09:00 Test Item Value Reference Range Interpretation Comments Magnesium Lvl (test code = Magnesium 1.8 1.8-2.4 Lvl) [facility]2018-03-14 10:09:00 Test Item Value Reference Range Interpretation Comments eGFR (test code = eGFR) 4 [facility]2018-03-14 10:09:00 Test Item Value Reference Range Interpretation Comments Creatinine Lvl (test code = Creatinine 11.60 0.50-1.40 Lvl) [facility]2018-03-14 10:09:00 Test Item Value Reference Range Interpretation Comments Calcium Lvl (test code = Calcium Lvl) 6.9 8.5-10.5 [facility]2018-03-14 10:09:00 Test Item Value Reference Range Interpretation Comments CO2 (test code = CO2) 27 24-32 [facility]2018-03-14 10:09:00 Test Item Value Reference Range Interpretation Comments Sodium Lvl (test code = Sodium Lvl) 133 135-145 [facility]2018-03-14 10:09:00 Test Item Value Reference Range Interpretation Comments Chloride Lvl (test code = Chloride Lvl) 94 95-109 [facility]2018-03-14 10:09:00 Test Item Value Reference Range Interpretation Comments Potassium Lvl (test code = Potassium 3.7 3.5-5.1 Lvl) [facility]2018-03-14 10:09:00 Test Item Value Reference Range Interpretation Comments BUN (test code = BUN) 104 7-22 [facility]2018-03-14 10:09:00 Test Item Value Reference Range Interpretation Comments Glucose Lvl (test code = Glucose Lvl) 85 70-99 [facility]2018-03-14 10:09:00 Test Item Value Reference Range Interpretation Comments AGAP (test code = AGAP) 15.7 10.0-20.0 [facility] CenterGvzartyQVOIFJSZTN3184-36-73 10:09:00 Test Item Value Reference Range Interpretation Comments Eosinophils # (test code 0.2 See_Comment [A utomated message] The = Eosinophils #) system whic h generated this result tra nsmitted reference range : <=0.5. The reference r yared was not used to int erpret this result as normal/abnormal . [facility] CenterDocpjhiHBHOZWIVOJ1925-98-80 10:09:00 Test Item Value Reference Range Interpretation Comments Monocytes # (test code 0.6 See_Comment [Aut omated message] The = Monocytes #) system which generated this result tra nsmitted reference range : <=0.8. The reference r yared was not used to int erpret this result as normal/abnormal . [facility] CenterEqepcsiNNZEBLNIZC6397-74-81 10:09:00 Test Item Value Reference Range Interpretation Comments Microcyte (test code = 1+ *ABN*(12/20/17 Microcyte) 5:09 AM) [facility] CenterTpeucrrTUIKUTVYNN0403-58-06 10:09:00 Test Item Value Reference Range Interpretation Comments Segs (test code = Segs) 71.0 45.0-75.0 [facility] CenterDpuqtbfMUREBNJANH5379-84-18 10:09:00 Test Item Value Reference Range Interpretation Comments Lymphocytes # (test code = Lymphocytes 1.0 1.0-5.5 #) [facility] CenterOcapwrvAIFICBSJGO6685-87-19 10:09:00 Test Item Value Reference Range Interpretation Comments Basophils (test code = 0.8 See_Comment [Aut omated message] The Basophils) system which ge nerated this result tra nsmitted reference range : <=1.0. The reference r yared was not used to int erpret this result as normal/abnormal . [facility] CenterPbpzwvaKYPPYHDITS2655-35-30 10:09:00 Test Item Value Reference Range Interpretation Comments Segs-Bands # (test code = Segs-Bands #) 4.6 1.5-8.1 [facility] CenterBuylmayCZBKRGGSDW4618-18-07 10:09:00 Test Item Value Reference Range Interpretation Comments Lymphocytes (test code = Lymphocytes) 15.7 20.0-40.0 [facility] CenterGdowchoQFMUFOBMIA2821-19-71 10:09:00 Test Item Value Reference Range Interpretation Comments Eosinophils (test code = 3.1 See_Comment [A utomated message] The Eosinophils) system which ge nerated this result tra nsmitted reference range : <=4.0. The reference r yared was not used to int erpret this result as normal/abnormal . [facility] CenterErsnhktWPEWKGGNTV5230-34-70 10:09:00 Test Item Value Reference Range Interpretation Comments Monocytes (test code = Monocytes) 9.4 2.0-12.0 [facility] CenterEighkolXVKZSPFWBX1781-74-14 10:09:00 Test Item Value Reference Range Interpretation Comments Platelet (test code = Platelet) 193 133-450 [facility] CenterQvskmbbCOZDYECRPP3459-53-03 10:09:00 Test Item Value Reference Range Interpretation Comments MCV (test code = MCV) 77.5 80.0-94.0 [facility] CenterZltmpksRVSPOYWPXG0805-90-57 10:09:00 Test Item Value Reference Range Interpretation Comments MCHC (test code = MCHC) 35.5 32.0-36.0 [facility] CenterPosaummDMPJKYFBNI0786-79-45 10:09:00 Test Item Value Reference Range Interpretation Comments MCH (test code = MCH) 27.5 pg 27.0-31.0 [facility] CenterMhhdrevWIWGKJVRRC9571-68-30 10:09:00 Test Item Value Reference Range Interpretation Comments RDW (test code = RDW) 14.1 11.5-14.5 [facility] CenterTwlgxahACHNUOSCUD0388-47-14 10:09:00 Test Item Value Reference Range Interpretation Comments MPV (test code = MPV) 7.7 7.4-10.4 [facility] CenterVqsnigpJVENYUFGOU4487-65-07 10:09:00 Test Item Value Reference Range Interpretation Comments Hct (test code = Hct) 23.5 42.0-54.0 [facility] CenterHnheiubXOKSPEOHLX6490-68-07 10:09:00 Test Item Value Reference Range Interpretation Comments Hgb (test code = Hgb) 8.4 14.0-18.0 [facility] CenterYfmkntyMJMCDSGLUQ4566-58-44 10:09:00 Test Item Value Reference Range Interpretation Comments RBC (test code = RBC) 3.03 4.70-6.10 [facility] CenterKcjgcexOXHWVGSSDL1905-81-21 10:09:00 Test Item Value Reference Range Interpretation Comments WBC (test code = WBC) 6.5 3.7-10.4 [facility]2018-03-14 10:09:00 Test Item Value Reference Range Interpretation Comments Ca Norm WB (test code = Ca Norm WB) 0.86 1.05-1.25 [facility]2018-03-14 10:09:00 Test Item Value Reference Range Interpretation Comments Ca Ion WB (test code = Ca Ion WB) 0.86 1.05-1.25 [facility]2018-03-14 10:09:00 Test Item Value Reference Range Interpretation Comments Magnesium Lvl (test code = Magnesium 1.8 1.8-2.4 Lvl) [facility]2018-03-14 10:09:00 Test Item Value Reference Range Interpretation Comments eGFR (test code = eGFR) 4 [facility]2018-03-14 10:09:00 Test Item Value Reference Range Interpretation Comments Creatinine Lvl (test code = Creatinine 11.60 0.50-1.40 Lvl) [facility]2018-03-14 10:09:00 Test Item Value Reference Range Interpretation Comments Calcium Lvl (test code = Calcium Lvl) 6.9 8.5-10.5 [facility]2018-03-14 10:09:00 Test Item Value Reference Range Interpretation Comments CO2 (test code = CO2) 27 24-32 [facility]2018-03-14 10:09:00 Test Item Value Reference Range Interpretation Comments Sodium Lvl (test code = Sodium Lvl) 133 135-145 [facility]2018-03-14 10:09:00 Test Item Value Reference Range Interpretation Comments Chloride Lvl (test code = Chloride Lvl) 94 95-109 [facility]2018-03-14 10:09:00 Test Item Value Reference Range Interpretation Comments Potassium Lvl (test code = Potassium 3.7 3.5-5.1 Lvl) [facility]2018-03-14 10:09:00 Test Item Value Reference Range Interpretation Comments BUN (test code = BUN) 104 7-22 [facility]2018-03-14 10:09:00 Test Item Value Reference Range Interpretation Comments Glucose Lvl (test code = Glucose Lvl) 85 70-99 [facility]2018-03-14 10:09:00 Test Item Value Reference Range Interpretation Comments AGAP (test code = AGAP) 15.7 10.0-20.0 [facility] CenterRvzpcozLXPESXRHSL1237-38-36 10:09:00 Test Item Value Reference Range Interpretation Comments Eosinophils # (test code 0.2 See_Comment [A utomated message] The = Eosinophils #) system whic h generated this result tra nsmitted reference range : <=0.5. The reference r yared was not used to int erpret this result as normal/abnormal . [facility] CenterYnpcwykXUNRMXZEMA3359-38-26 10:09:00 Test Item Value Reference Range Interpretation Comments Monocytes # (test code 0.6 See_Comment [Aut omated message] The = Monocytes #) system which generated this result tra nsmitted reference range : <=0.8. The reference r yared was not used to int erpret this result as normal/abnormal . [facility] CenterKblkwmmSPEOGCMFGK5698-35-68 10:09:00 Test Item Value Reference Range Interpretation Comments Microcyte (test code = 1+ *ABN*(12/20/17 Microcyte) 5:09 AM) [facility] CenterDpshmjhCSMGQDYMXW0576-53-67 10:09:00 Test Item Value Reference Range Interpretation Comments Segs (test code = Segs) 71.0 45.0-75.0 [facility] CenterZcedoazIBSWXEGXTY1767-82-70 10:09:00 Test Item Value Reference Range Interpretation Comments Lymphocytes # (test code = Lymphocytes 1.0 1.0-5.5 #) [facility] CenterLsxploeKMHHWYEGWA5124-61-48 10:09:00 Test Item Value Reference Range Interpretation Comments Basophils (test code = 0.8 See_Comment [Aut omated message] The Basophils) system which ge nerated this result tra nsmitted reference range : <=1.0. The reference r yared was not used to int erpret this result as normal/abnormal . [facility] CenterLwguoutMTHEXVOAVD8630-96-58 10:09:00 Test Item Value Reference Range Interpretation Comments Segs-Bands # (test code = Segs-Bands #) 4.6 1.5-8.1 [facility] CenterXiqjovjINPUKMWFEE2884-36-18 10:09:00 Test Item Value Reference Range Interpretation Comments Lymphocytes (test code = Lymphocytes) 15.7 20.0-40.0 [facility] CenterHgilzjwTCTVMQFERN9871-87-63 10:09:00 Test Item Value Reference Range Interpretation Comments Eosinophils (test code = 3.1 See_Comment [A utomated message] The Eosinophils) system which ge nerated this result tra nsmitted reference range : <=4.0. The reference r yared was not used to int erpret this result as normal/abnormal . [facility] CenterDehokbsBBAPEAWEXG6590-36-52 10:09:00 Test Item Value Reference Range Interpretation Comments Monocytes (test code = Monocytes) 9.4 2.0-12.0 [facility] CenterNlpgzeuHVGWZWAQXL6082-12-69 10:09:00 Test Item Value Reference Range Interpretation Comments Platelet (test code = Platelet) 193 133-450 [facility] CenterRvdtndnTRIRGFRHMH0305-13-37 10:09:00 Test Item Value Reference Range Interpretation Comments MCV (test code = MCV) 77.5 80.0-94.0 [facility] CenterUncydwcLKDSAZLQET8074-85-16 10:09:00 Test Item Value Reference Range Interpretation Comments MCHC (test code = MCHC) 35.5 32.0-36.0 [facility] CenterGionrrcPBNCAUEGIJ8844-10-23 10:09:00 Test Item Value Reference Range Interpretation Comments MCH (test code = MCH) 27.5 pg 27.0-31.0 [facility] CenterHdcokrsTNGNPVYSRS9752-69-76 10:09:00 Test Item Value Reference Range Interpretation Comments RDW (test code = RDW) 14.1 11.5-14.5 [facility] CenterTgloijjOZCAESBAWS6510-58-66 10:09:00 Test Item Value Reference Range Interpretation Comments MPV (test code = MPV) 7.7 7.4-10.4 [facility] CenterXeieybvQAFFRQMIWX1895-97-76 10:09:00 Test Item Value Reference Range Interpretation Comments Hct (test code = Hct) 23.5 42.0-54.0 [facility] CenterSpylkiuNTNDOKZKCY9762-40-46 10:09:00 Test Item Value Reference Range Interpretation Comments Hgb (test code = Hgb) 8.4 14.0-18.0 [facility] CenterDvcpgsvDEFVFQWNWX9064-25-12 10:09:00 Test Item Value Reference Range Interpretation Comments RBC (test code = RBC) 3.03 4.70-6.10 [facility] CenterHklxtboGLZXNSUHMI1794-83-25 10:09:00 Test Item Value Reference Range Interpretation Comments WBC (test code = WBC) 6.5 3.7-10.4 [facility] [id number] 10:09:00 Test Item Value Reference Range Interpretation Comments Ca Norm WB (test code = Ca Norm WB) 0.86 1.05-1.25 [facility]ATHY[facility]ID [id number] 10:09:00 Test Item Value Reference Range Interpretation Comments Ca Ion WB (test code = Ca Ion WB) 0.86 1.05-1.25 [facility] AND [id number] 17:00:00 Test Item Value Reference Range Interpretation Comments Occult Bld Stl (test Positive *ABN*(12/19/17 code = Occult Bld Stl) 12:00 PM) [facility] AND [id number] 17:00:00 Test Item Value Reference Range Interpretation Comments Occult Bld Stl (test Positive *ABN*(12/19/17 code = Occult Bld Stl) 12:00 PM) [facility]2018-03-13 12:14:00 Test Item Value Reference Range Interpretation Comments Phosphorus (test code = Phosphorus) 8.2 2.5-4.5 [facility]2018-03-13 12:14:00 Test Item Value Reference Range Interpretation Comments A/G Ratio (test code = A/G Ratio) 0.8 1 0.7-1.6 [facility]2018-03-13 12:14:00 Test Item Value Reference Range Interpretation Comments AST (test code = AST) 9 See_Comment [Auto mated message] The system which ge nerated this result transmit emerson reference range : <=37. The reference range was not used to interpr et this result as erinn l/abnormal. [facility]2018-03-13 12:14:00 Test Item Value Reference Range Interpretation Comments ALT (test code = ALT) 10 See_Comment [Auto mated message] The system which ge nerated this result transmit emerson reference range : <=65. The reference range was not used to interpr et this result as erinn l/abnormal. [facility]2018-03-13 12:14:00 Test Item Value Reference Range Interpretation Comments Globulin (test code = Globulin) 3.5 2.7-4.2 [facility]2018-03-13 12:14:00 Test Item Value Reference Range Interpretation Comments Albumin Lvl (test code = Albumin Lvl) 2.7 3.5-5.0 [facility]2018-03-13 12:14:00 Test Item Value Reference Range Interpretation Comments eGFR (test code = eGFR) 4 [facility]2018-03-13 12:14:00 Test Item Value Reference Range Interpretation Comments Alk Phos (test code = Alk Phos) 100 39-136 [facility]2018-03-13 12:14:00 Test Item Value Reference Range Interpretation Comments Bili Total (test code = Bili Total) 0.3 0.2-1.3 [facility]2018-03-13 12:14:00 Test Item Value Reference Range Interpretation Comments Glucose Lvl (test code = Glucose Lvl) 88 70-99 [facility]2018-03-13 12:14:00 Test Item Value Reference Range Interpretation Comments Potassium Lvl (test code = Potassium 3.6 3.5-5.1 Lvl) [facility]2018-03-13 12:14:00 Test Item Value Reference Range Interpretation Comments Chloride Lvl (test code = Chloride Lvl) 95 95-109 [facility]2018-03-13 12:14:00 Test Item Value Reference Range Interpretation Comments Sodium Lvl (test code = Sodium Lvl) 135 135-145 [facility]2018-03-13 12:14:00 Test Item Value Reference Range Interpretation Comments BUN (test code = BUN) 103 7-22 [facility]2018-03-13 12:14:00 Test Item Value Reference Range Interpretation Comments Creatinine Lvl (test code = Creatinine 11.70 0.50-1.40 Lvl) [facility]2018-03-13 12:14:00 Test Item Value Reference Range Interpretation Comments B/C Ratio (test code = B/C Ratio) 9 1 6-25 [place] [id number] 12:14:00 Test Item Value Reference Range Interpretation Comments Total Protein (test code = Total 6.2 6.4-8.4 Protein) [facility]2018-03-13 12:14:00 Test Item Value Reference Range Interpretation Comments Calcium Lvl (test code = Calcium Lvl) 6.5 8.5-10.5 [facility]2018-03-13 12:14:00 Test Item Value Reference Range Interpretation Comments AGAP (test code = AGAP) 14.6 10.0-20.0 [facility]2018-03-13 12:14:00 Test Item Value Reference Range Interpretation Comments CO2 (test code = CO2) 29 24-32 [facility]2018-03-13 12:14:00 Test Item Value Reference Range Interpretation Comments Ca Ion WB (test code = Ca Ion WB) 0.88 1.05-1.25 [facility]2018-03-13 12:14:00 Test Item Value Reference Range Interpretation Comments Ca Norm WB (test code = Ca Norm WB) 0.85 1.05-1.25 [facility]2018-03-13 12:14:00 Test Item Value Reference Range Interpretation Comments Phosphorus (test code = Phosphorus) 8.2 2.5-4.5 [facility]2018-03-13 12:14:00 Test Item Value Reference Range Interpretation Comments A/G Ratio (test code = A/G Ratio) 0.8 1 0.7-1.6 [facility]2018-03-13 12:14:00 Test Item Value Reference Range Interpretation Comments AST (test code = AST) 9 See_Comment [Auto mated message] The system which ge nerated this result transmit emerson reference range : <=37. The reference range was not used to interpr et this result as erinn l/abnormal. [facility]2018-03-13 12:14:00 Test Item Value Reference Range Interpretation Comments ALT (test code = ALT) 10 See_Comment [Auto mated message] The system which ge nerated this result transmit emerson reference range : <=65. The reference range was not used to interpr et this result as erinn l/abnormal. [facility]2018-03-13 12:14:00 Test Item Value Reference Range Interpretation Comments Globulin (test code = Globulin) 3.5 2.7-4.2 [place] [id number] 12:14:00 Test Item Value Reference Range Interpretation Comments Albumin Lvl (test code = Albumin Lvl) 2.7 3.5-5.0 [place] [id number] 12:14:00 Test Item Value Reference Range Interpretation Comments eGFR (test code = eGFR) 4 [facility]2018-03-13 12:14:00 Test Item Value Reference Range Interpretation Comments Alk Phos (test code = Alk Phos) 100 39-136 [facility]2018-03-13 12:14:00 Test Item Value Reference Range Interpretation Comments Bili Total (test code = Bili Total) 0.3 0.2-1.3 [facility]2018-03-13 12:14:00 Test Item Value Reference Range Interpretation Comments Glucose Lvl (test code = Glucose Lvl) 88 70-99 [facility]2018-03-13 12:14:00 Test Item Value Reference Range Interpretation Comments Potassium Lvl (test code = Potassium 3.6 3.5-5.1 Lvl) [facility]2018-03-13 12:14:00 Test Item Value Reference Range Interpretation Comments Chloride Lvl (test code = Chloride Lvl) 95 95-109 [facility]2018-03-13 12:14:00 Test Item Value Reference Range Interpretation Comments Sodium Lvl (test code = Sodium Lvl) 135 135-145 [facility]2018-03-13 12:14:00 Test Item Value Reference Range Interpretation Comments BUN (test code = BUN) 103 7-22 [facility]2018-03-13 12:14:00 Test Item Value Reference Range Interpretation Comments Creatinine Lvl (test code = Creatinine 11.70 0.50-1.40 Lvl) [facility]2018-03-13 12:14:00 Test Item Value Reference Range Interpretation Comments B/C Ratio (test code = B/C Ratio) 9 1 6-25 [facility]2018-03-13 12:14:00 Test Item Value Reference Range Interpretation Comments Total Protein (test code = Total 6.2 6.4-8.4 Protein) [facility]2018-03-13 12:14:00 Test Item Value Reference Range Interpretation Comments Calcium Lvl (test code = Calcium Lvl) 6.5 8.5-10.5 [facility]2018-03-13 12:14:00 Test Item Value Reference Range Interpretation Comments AGAP (test code = AGAP) 14.6 10.0-20.0 [facility]2018-03-13 12:14:00 Test Item Value Reference Range Interpretation Comments CO2 (test code = CO2) 29 -32 [facility] [id number] 12:14:00 Test Item Value Reference Range Interpretation Comments Ca Ion WB (test code = Ca Ion WB) 0.88 1.05-1.25 [facility] [id number] 12:14:00 Test Item Value Reference Range Interpretation Comments Ca Norm WB (test code = Ca Norm WB) 0.85 1.05-1.25 [facility]2018-03-13 10:02:00 Test Item Value Reference Range Interpretation Comments eGFR (test code = eGFR) 4 [facility]2018-03-13 10:02:00 Test Item Value Reference Range Interpretation Comments Glucose Lvl (test code = Glucose Lvl) 92 70-99 [facility]2018-03-13 10:02:00 Test Item Value Reference Range Interpretation Comments Sodium Lvl (test code = Sodium Lvl) 138 135-145 [facility]2018-03-13 10:02:00 Test Item Value Reference Range Interpretation Comments Potassium Lvl (test code = Potassium 3.6 3.5-5.1 Lvl) [facility]2018-03-13 10:02:00 Test Item Value Reference Range Interpretation Comments BUN (test code = BUN) 97 7-22 [facility]2018-03-13 10:02:00 Test Item Value Reference Range Interpretation Comments Creatinine Lvl (test code = Creatinine 11.80 0.50-1.40 Lvl) [facility]2018-03-13 10:02:00 Test Item Value Reference Range Interpretation Comments Calcium Lvl (test code = Calcium Lvl) 6.8 8.5-10.5 [facility]2018-03-13 10:02:00 Test Item Value Reference Range Interpretation Comments CO2 (test code = CO2) 27 -32 [facility]2018-03-13 10:02:00 Test Item Value Reference Range Interpretation Comments AGAP (test code = AGAP) 18.6 10.0-20.0 [facility]2018-03-13 10:02:00 Test Item Value Reference Range Interpretation Comments Chloride Lvl (test code = Chloride Lvl) 96 95-109 [facility]2018-03-13 10:02:00 Test Item Value Reference Range Interpretation Comments Magnesium Lvl (test code = Magnesium 1.8 1.8-2.4 Lvl) [facility] CenterFiuowbeWWCYGIGGRM9056-47-39 10:02:00 Test Item Value Reference Range Interpretation Comments RDW (test code = RDW) 14.3 11.5-14.5 [facility] CenterIvooswjNUEETLJTQS0601-67-66 10:02:00 Test Item Value Reference Range Interpretation Comments MCHC (test code = MCHC) 34.5 32.0-36.0 [facility] CenterFszhdpsCTYYJUQICH4779-03-70 10:02:00 Test Item Value Reference Range Interpretation Comments MCH (test code = MCH) 26.8 pg 27.0-31.0 [facility] CenterDpavwydGHVDPAVQJW3929-30-69 10:02:00 Test Item Value Reference Range Interpretation Comments MPV (test code = MPV) 8.0 7.4-10.4 [facility] CenterVjjghukYQRHVJNRBA7868-95-40 10:02:00 Test Item Value Reference Range Interpretation Comments Platelet (test code = Platelet) 200 133-450 [facility] CenterIthzkdsNGJJATTPPA1445-44-63 10:02:00 Test Item Value Reference Range Interpretation Comments MCV (test code = MCV) 77.7 80.0-94.0 [facility] CenterPpphxvtTRJDFXALLP0590-25-51 10:02:00 Test Item Value Reference Range Interpretation Comments Hct (test code = Hct) 24.7 42.0-54.0 [facility] CenterAdvhpfpFGUCOEUZLK7541-61-60 10:02:00 Test Item Value Reference Range Interpretation Comments Hgb (test code = Hgb) 8.5 14.0-18.0 [facility] CenterAqwgyhpLLTDILCNYS5144-03-50 10:02:00 Test Item Value Reference Range Interpretation Comments RBC (test code = RBC) 3.17 4.70-6.10 [facility] CenterVidmnpjDFTNAATHOC2257-97-91 10:02:00 Test Item Value Reference Range Interpretation Comments WBC (test code = WBC) 6.6 3.7-10.4 [facility] CenterTjfkdhkNRPGKGXDFN5014-39-02 10:02:00 Test Item Value Reference Range Interpretation Comments Monocytes # (test code 0.7 See_Comment [Aut omated message] The = Monocytes #) system which generated this result tra nsmitted reference range : <=0.8. The reference r yared was not used to int erpret this result as normal/abnormal . [facility] CenterYpmodguERWKBLHKCR6207-51-84 10:02:00 Test Item Value Reference Range Interpretation Comments Eosinophils # (test code 0.2 See_Comment [A utomated message] The = Eosinophils #) system wh h generated this result tra nsmitted reference range : <=0.5. The reference r yared was not used to int erpret this result as normal/abnormal . [facility] CenterWsfyyoaNAMLPIWKNE1142-51-20 10:02:00 Test Item Value Reference Range Interpretation Comments Microcyte (test code = 1+ *ABN*(12/19/17 Microcyte) 5:02 AM) [facility] CenterQfcdvsjCIDBVMGZKC9681-94-74 10:02:00 Test Item Value Reference Range Interpretation Comments Lymphocytes # (test code = Lymphocytes 1.0 1.0-5.5 #) [facility] CenterLdqtjorNFXALVSQNR2208-93-50 10:02:00 Test Item Value Reference Range Interpretation Comments Basophils (test code = 0.6 See_Comment [Aut omated message] The Basophils) system which ge nerated this result tra nsmitted reference range : <=1.0. The reference r yared was not used to int erpret this result as normal/abnormal . [facility] CenterKwhijxvSUWCWYDKBX4710-84-79 10:02:00 Test Item Value Reference Range Interpretation Comments Segs-Bands # (test code = Segs-Bands #) 4.7 1.5-8.1 [facility] CenterLmcdairUORNPDMPDM0453-32-71 10:02:00 Test Item Value Reference Range Interpretation Comments Monocytes (test code = Monocytes) 10.3 2.0-12.0 [facility] CenterUfbtldiYMMQHSZWPU6280-65-79 10:02:00 Test Item Value Reference Range Interpretation Comments Eosinophils (test code = 2.9 See_Comment [A utomated message] The Eosinophils) system which ge nerated this result tra nsmitted reference range : <=4.0. The reference r yared was not used to int erpret this result as normal/abnormal . [facility] CenterNocmvgpADISLOVIGC8210-60-65 10:02:00 Test Item Value Reference Range Interpretation Comments Lymphocytes (test code = Lymphocytes) 15.3 20.0-40.0 [facility] CenterIimnwytVCWZBNKLCU9212-12-18 10:02:00 Test Item Value Reference Range Interpretation Comments Segs (test code = Segs) 70.9 45.0-75.0 [facility]ATHY[facility]ID [id number] 10:02:00 Test Item Value Reference Range Interpretation Comments Ca Ion WB (test code = Ca Ion WB) 0.88 1.05-1.25 [facility] [id number] 10:02:00 Test Item Value Reference Range Interpretation Comments Ca Norm WB (test code = Ca Norm WB) 0.88 1.05-1.25 [facility]2018-03-13 10:02:00 Test Item Value Reference Range Interpretation Comments eGFR (test code = eGFR) 4 [facility]2018-03-13 10:02:00 Test Item Value Reference Range Interpretation Comments Glucose Lvl (test code = Glucose Lvl) 92 70-99 [facility]2018-03-13 10:02:00 Test Item Value Reference Range Interpretation Comments Sodium Lvl (test code = Sodium Lvl) 138 135-145 [facility]2018-03-13 10:02:00 Test Item Value Reference Range Interpretation Comments Potassium Lvl (test code = Potassium 3.6 3.5-5.1 Lvl) [facility]2018-03-13 10:02:00 Test Item Value Reference Range Interpretation Comments BUN (test code = BUN) 97 7-22 [facility]2018-03-13 10:02:00 Test Item Value Reference Range Interpretation Comments Creatinine Lvl (test code = Creatinine 11.80 0.50-1.40 Lvl) [facility]2018-03-13 10:02:00 Test Item Value Reference Range Interpretation Comments Calcium Lvl (test code = Calcium Lvl) 6.8 8.5-10.5 [facility]2018-03-13 10:02:00 Test Item Value Reference Range Interpretation Comments CO2 (test code = CO2) 27 24-32 [facility]2018-03-13 10:02:00 Test Item Value Reference Range Interpretation Comments AGAP (test code = AGAP) 18.6 10.0-20.0 [facility]2018-03-13 10:02:00 Test Item Value Reference Range Interpretation Comments Chloride Lvl (test code = Chloride Lvl) 96 95-109 [facility]2018-03-13 10:02:00 Test Item Value Reference Range Interpretation Comments Magnesium Lvl (test code = Magnesium 1.8 1.8-2.4 Lvl) [facility] CenterItjujexSPXZKKVMHD4753-16-47 10:02:00 Test Item Value Reference Range Interpretation Comments RDW (test code = RDW) 14.3 11.5-14.5 [facility] CenterBtvzfjoAALOYHDLOF2203-19-37 10:02:00 Test Item Value Reference Range Interpretation Comments MCHC (test code = MCHC) 34.5 32.0-36.0 [facility] CenterZmdlktbOVZHAZBQTX0478-18-46 10:02:00 Test Item Value Reference Range Interpretation Comments MCH (test code = MCH) 26.8 pg 27.0-31.0 [facility] CenterWyryzeiRVAPOSUACQ8991-28-52 10:02:00 Test Item Value Reference Range Interpretation Comments MPV (test code = MPV) 8.0 7.4-10.4 [facility] CenterVlljnrzGWEJWXUWVM9437-84-33 10:02:00 Test Item Value Reference Range Interpretation Comments Platelet (test code = Platelet) 200 133-450 [facility] CenterHsnflkwGVAFKCABEE1246-26-19 10:02:00 Test Item Value Reference Range Interpretation Comments MCV (test code = MCV) 77.7 80.0-94.0 [facility] CenterQakauhnOAFKAQCDOY2250-15-89 10:02:00 Test Item Value Reference Range Interpretation Comments Hct (test code = Hct) 24.7 42.0-54.0 [facility] CenterIpkhjybVOQDHXVPLJ7328-14-45 10:02:00 Test Item Value Reference Range Interpretation Comments Hgb (test code = Hgb) 8.5 14.0-18.0 [facility] CenterGfidgluINDPAJBQDP5512-90-73 10:02:00 Test Item Value Reference Range Interpretation Comments RBC (test code = RBC) 3.17 4.70-6.10 [facility] CenterVtdpjrzZKOHEQCHWV3493-40-84 10:02:00 Test Item Value Reference Range Interpretation Comments WBC (test code = WBC) 6.6 3.7-10.4 [facility] CenterIasqmhcUATAYAGJTD7834-44-23 10:02:00 Test Item Value Reference Range Interpretation Comments Monocytes # (test code 0.7 See_Comment [Aut omated message] The = Monocytes #) system which generated this result tra nsmitted reference range : <=0.8. The reference r yared was not used to int erpret this result as normal/abnormal . [facility] CenterEwekrrxXEMPRARNRG8998-11-58 10:02:00 Test Item Value Reference Range Interpretation Comments Eosinophils # (test code 0.2 See_Comment [A utomated message] The = Eosinophils #) system whic h generated this result tra nsmitted reference range : <=0.5. The reference r yared was not used to int erpret this result as normal/abnormal . [facility] CenterChxllqvLHBWYMSYUD2436-42-98 10:02:00 Test Item Value Reference Range Interpretation Comments Microcyte (test code = 1+ *ABN*(12/19/17 Microcyte) 5:02 AM) [facility] CenterPdgxmapOSGWAJTSAL1256-12-94 10:02:00 Test Item Value Reference Range Interpretation Comments Lymphocytes # (test code = Lymphocytes 1.0 1.0-5.5 #) [facility] CenterOhlaosoRAZMNWLVQO1540-12-93 10:02:00 Test Item Value Reference Range Interpretation Comments Basophils (test code = 0.6 See_Comment [Aut omated message] The Basophils) system which ge nerated this result tra nsmitted reference range : <=1.0. The reference r yared was not used to int erpret this result as normal/abnormal . [facility] CenterQrtwxikZOXXWKWSOF4022-24-54 10:02:00 Test Item Value Reference Range Interpretation Comments Segs-Bands # (test code = Segs-Bands #) 4.7 1.5-8.1 [facility] CenterXzqzszqYGHLDTUJAK2233-25-87 10:02:00 Test Item Value Reference Range Interpretation Comments Monocytes (test code = Monocytes) 10.3 2.0-12.0 [facility] CenterYcjqeszAYJTCTKYWE2415-82-90 10:02:00 Test Item Value Reference Range Interpretation Comments Eosinophils (test code = 2.9 See_Comment [A utomated message] The Eosinophils) system which ge nerated this result tra nsmitted reference range : <=4.0. The reference r yared was not used to int erpret this result as normal/abnormal . [facility] CenterBuxdpxrULFVVHKBLX7744-32-45 10:02:00 Test Item Value Reference Range Interpretation Comments Lymphocytes (test code = Lymphocytes) 15.3 20.0-40.0 [facility] CenterLghovyiJLMVHWCZFP1612-29-72 10:02:00 Test Item Value Reference Range Interpretation Comments Segs (test code = Segs) 70.9 45.0-75.0 [facility]2018-03-13 10:02:00 Test Item Value Reference Range Interpretation Comments Ca Ion WB (test code = Ca Ion WB) 0.88 1.05-1.25 [facility]2018-03-13 10:02:00 Test Item Value Reference Range Interpretation Comments Ca Norm WB (test code = Ca Norm WB) 0.88 1.05-1.25 [facility]2018-03-12 09:55:00 Test Item Value Reference Range Interpretation Comments Magnesium Lvl (test code = Magnesium 1.9 1.8-2.4 Lvl) [facility]2018-03-12 09:55:00 Test Item Value Reference Range Interpretation Comments Phosphorus (test code = Phosphorus) 8.8 2.5-4.5 [facility]2018-03-12 09:55:00 Test Item Value Reference Range Interpretation Comments Magnesium Lvl (test code = Magnesium 1.9 1.8-2.4 Lvl) [facility]2018-03-12 09:55:00 Test Item Value Reference Range Interpretation Comments Phosphorus (test code = Phosphorus) 8.8 2.5-4.5 [facility] CenterKlmyvmxHYFUQEIRMZ6360-18-09 09:32:00 Test Item Value Reference Range Interpretation Comments Microcyte (test code = 1+ *ABN*(12/17/17 Microcyte) 4:32 AM) [facility]KskpddbITLBMBQYQB5759-82-58 09:32:00 Test Item Value Reference Range Interpretation Comments Eosinophils # (test code 0.2 See_Comment [A utomated message] The = Eosinophils #) system whic h generated this result tra nsmitted reference range : <=0.5. The reference r yared was not used to int erpret this result as normal/abnormal . [facility] CenterQqsjrriBQWBVCCIBU8028-58-63 09:32:00 Test Item Value Reference Range Interpretation Comments Monocytes # (test code 0.6 See_Comment [Aut omated message] The = Monocytes #) system which generated this result tra nsmitted reference range : <=0.8. The reference r yared was not used to int erpret this result as normal/abnormal . [facility] CenterNcslfceFSONLZKRDF4493-35-98 09:32:00 Test Item Value Reference Range Interpretation Comments Lymphocytes # (test code = Lymphocytes 1.0 1.0-5.5 #) [facility] CenterFekparjGCXXROFJMB5258-40-77 09:32:00 Test Item Value Reference Range Interpretation Comments Segs-Bands # (test code = Segs-Bands #) 3.9 1.5-8.1 [facility] CenterLhijkykPZTFXKQLXN8567-64-16 09:32:00 Test Item Value Reference Range Interpretation Comments Basophils (test code = 0.6 See_Comment [Aut omated message] The Basophils) system which ge nerated this result tra nsmitted reference range : <=1.0. The reference r yared was not used to int erpret this result as normal/abnormal . [facility] CenterRrgvnduQGCJJHXURM1152-44-02 09:32:00 Test Item Value Reference Range Interpretation Comments Eosinophils (test code = 2.7 See_Comment [A utomated message] The Eosinophils) system which ge nerated this result tra nsmitted reference range : <=4.0. The reference r yared was not used to int erpret this result as normal/abnormal . [facility] CenterTlzazpoBXNUFWOCIV6827-00-19 09:32:00 Test Item Value Reference Range Interpretation Comments Monocytes (test code = Monocytes) 10.4 2.0-12.0 [facility] CenterMibbddcPDUXNTERIZ2052-95-76 09:32:00 Test Item Value Reference Range Interpretation Comments Lymphocytes (test code = Lymphocytes) 18.1 20.0-40.0 [facility] CenterBefvevxFJCLULTNPZ0723-70-38 09:32:00 Test Item Value Reference Range Interpretation Comments Segs (test code = Segs) 68.2 45.0-75.0 [facility] CenterBdugtdnAFSZDGWXKO8713-66-82 09:32:00 Test Item Value Reference Range Interpretation Comments Platelet (test code = Platelet) 213 133-450 [facility] CenterIjwwnbtCBLNUXSYNP1775-17-99 09:32:00 Test Item Value Reference Range Interpretation Comments RDW (test code = RDW) 14.3 11.5-14.5 [facility] CenterRsjnzmaSSYEKBQKSQ1444-61-69 09:32:00 Test Item Value Reference Range Interpretation Comments MPV (test code = MPV) 8.0 7.4-10.4 [facility] CenterOmjtpsqKCCTIPFLJH5509-20-96 09:32:00 Test Item Value Reference Range Interpretation Comments MCH (test code = MCH) 27.4 pg 27.0-31.0 [facility] CenterXlipqutYHHHGNJGMF7804-66-31 09:32:00 Test Item Value Reference Range Interpretation Comments MCV (test code = MCV) 78.6 80.0-94.0 [facility] CenterPeqiysrPYHEHOMNOY7596-52-49 09:32:00 Test Item Value Reference Range Interpretation Comments Hct (test code = Hct) 22.8 42.0-54.0 [facility] CenterTmpngygRYEXXLCSMK3713-32-92 09:32:00 Test Item Value Reference Range Interpretation Comments MCHC (test code = MCHC) 34.9 32.0-36.0 [facility] CenterYbbfxdmCTDVSTMHZN9551-37-81 09:32:00 Test Item Value Reference Range Interpretation Comments Hgb (test code = Hgb) 7.9 14.0-18.0 [facility] CenterSvzisnxYKSOLQMLDX9153-77-70 09:32:00 Test Item Value Reference Range Interpretation Comments RBC (test code = RBC) 2.90 4.70-6.10 [facility] CenterVabmsyaVCZKMZBJVL6176-76-67 09:32:00 Test Item Value Reference Range Interpretation Comments WBC (test code = WBC) 5.7 3.7-10.4 [facility] CenterOdwitxpDOWEQRSYJP1186-39-35 09:32:00 Test Item Value Reference Range Interpretation Comments Sed Rate (test code = 80 See_Comment [Auto mated message] The Sed Rate) system which ge nerated this result transmit emerson reference range : <=15. The reference range was not used to interpr et this result as erinn l/abnormal. [facility] SouthGakkddzEBZIAYGESL2775-92-21 09:32:00 Test Item Value Reference Range Interpretation Comments Tot Prot (SPE) (test code = Tot Prot 7.0 6.4-8.4 (SPE)) [facility] SouthBuknkqiNLWFSZVQJS2955-54-95 09:32:00 Test Item Value Reference Range Interpretation Comments SPE Interp (test Total protein and serum code = SPE Interp) albumin are within normal limits. Serum capillary protein electrophoresis shows an elevated alpha-1 globulin fraction. No monoclonal proteins are identified. The electrophoretic pattern is consistent with the acute phase of an inflammatory process. Clinical correlation is required. Interpretation performed at [facility]. [facility] SouthDjqkifeAYDTPBJQMX4065-55-83 09:32:00 Test Item Value Reference Range Interpretation Comments Gamma Glob (test code = Gamma Glob) 1.13 0.71-1.57 [place] 388918-03-11 09:32:00 Test Item Value Reference Range Interpretation Comments Beta Glob (test code = Beta Glob) 0.83 0.50-1.15 [place] [address]-03-11 09:32:00 Test Item Value Reference Range Interpretation Comments Alpha 2 Glob (test code = Alpha 2 Glob) 0.85 0.45-1.00 [place] [address]-03-11 09:32:00 Test Item Value Reference Range Interpretation Comments Alpha 1 Glob (test code = Alpha 1 Glob) 0.48 0.18-0.41 [place] [address]-03-11 09:32:00 Test Item Value Reference Range Interpretation Comments Albumin (SPE) (test code = Albumin 3.72 3.57-5.55 (SPE)) [facility] SouthYkykhdeWOYINNTFLX5155-90-68 09:32:00 Test Item Value Reference Range Interpretation Comments Beta % (test code = Beta %) 11.8 7.8-13.7 [place] [address]-03-11 09:32:00 Test Item Value Reference Range Interpretation Comments Gamma % (test code = Gamma %) 16.2 11.1-18.7 [place] [address]-03-11 09:32:00 Test Item Value Reference Range Interpretation Comments Alpha 2 % (test code = Alpha 2 %) 12.1 7.0-11.9 [facility] SouthSrbdfruBNMQOWGSOO4281-35-60 09:32:00 Test Item Value Reference Range Interpretation Comments Alpha 1 % (test code = Alpha 1 %) 6.8 2.8-4.9 [facility] SouthIkgrgixLJNCBDIHFF6141-82-39 09:32:00 Test Item Value Reference Range Interpretation Comments Albumin % (test code = Albumin %) 53.1 55.8-66.1 [place] [address]-03-11 09:32:00 Test Item Value Reference Range Interpretation Comments C3 Complement (test code = C3 91 88-201 Complement) [facility] SouthScvissvTTPUVXCKKC2968-88-04 09:32:00 Test Item Value Reference Range Interpretation Comments MIKE Ser Pattern (test See interpretation. code = MIKE Ser Pattern) [facility] SouthYatyuadVESPCAOHUQ1368-85-29 09:32:00 Test Item Value Reference Range Interpretation Comments MIKE Ser Interp Serum immunofixation (test code = MIKE electrophoresis reveals a Ser Interp) polyclonal pattern of immunoglobulins. No monoclonal proteins are identified. Interpretation performed at [facility]. [facility] SouthCclzdwuMYBGHSSEUQ9020-17-14 09:32:00 Test Item Value Reference Range Interpretation Comments C4 Complement (test code = C4 29 16-47 Complement) [facility] SouthWxuwkbvYHXVDRXRRR7955-95-24 09:32:00 Test Item Value Reference Range Interpretation Comments P-ANCA (test code = Negative (12/17/17 4:32 P-ANCA) AM) [facility] SouthQvqocrdQNDICMFBSJ7923-43-53 09:32:00 Test Item Value Reference Range Interpretation Comments C-ANCA (test code = Negative (12/17/17 4:32 C-ANCA) AM) [facility] SouthCopvjscUOOQKHUHXA3231-29-36 09:32:00 Test Item Value Reference Range Interpretation Comments Hep Bs Ag (test code Negative *NA*(12/17/17 = Hep Bs Ag) 4:32 AM) [facility] SouthQmfnvlzPMYPFAPDMS1265-07-95 09:32:00 Test Item Value Reference Range Interpretation Comments Hep Bs Ab (test code = Hep Bs Ab) no gt [facility] SouthNxafswsWWWFXNRAWX8582-16-25 09:32:00 Test Item Value Reference Range Interpretation Comments Hep B Core Ab (test Negative *NA*(12/17/17 code = Hep B Core Ab) 4:32 AM) [facility] SouthJtxwvfmVCAJDGYJJL9644-04-00 09:32:00 Test Item Value Reference Range Interpretation Comments DNA Ab (DS) (test Negative (12/17/17 4:32 code = DNA Ab (DS)) AM) [facility] SouthCfeeodhKKLDBPLWHC4876-43-24 09:32:00 Test Item Value Reference Range Interpretation Comments Bonney/Lambda Free Light Chains Ratio 3.42 0.26-1.65 (test code = Bonney/Lambda Free Light Chains Ratio) [facility] SouthStxhpoiJFTDGLYLTD1051-09-85 09:32:00 Test Item Value Reference Range Interpretation Comments Bonney Free Light Chains (test code = 203.40 3.30-19.40 Bonney Free Light Chains) [facility] SouthOyykndtGBBQBPJZSA7968-03-71 09:32:00 Test Item Value Reference Range Interpretation Comments Lambda Free Light Chains (test code = 59.41 5.70-26.30 Lambda Free Light Chains) [facility] SouthKycrhygMWXAZFEMAP0339-34-43 09:32:00 Test Item Value Reference Range Interpretation Comments CHRISTINA (test code = CHRISTINA) Negative (12/17/17 4:32 AM) [facility] SouthPioyfkyCCZWWWBFXJ9577-67-18 09:32:00 Test Item Value Reference Range Interpretation Comments RF Qnt (test code = no gt See_Comment [Automa emerson message] The RF Qnt) system which ge nerated this result transmit emerson reference range : <=20. The reference range was not used to interpr et this result as erinn l/abnormal. [facility] CenterHhccxuzEZRLOVXNWZ8560-74-28 09:32:00 Test Item Value Reference Range Interpretation Comments Microcyte (test code = 1+ *ABN*(12/17/17 Microcyte) 4:32 AM) [facility] CenterQdkauhcEJOWBMWUJF9815-00-29 09:32:00 Test Item Value Reference Range Interpretation Comments Eosinophils # (test code 0.2 See_Comment [A utomated message] The = Eosinophils #) system whic h generated this result tra nsmitted reference range : <=0.5. The reference r yarde was not used to int erpret this result as normal/abnormal . [facility] CenterOexfzmuLKAUSBOYZL0964-40-79 09:32:00 Test Item Value Reference Range Interpretation Comments Monocytes # (test code 0.6 See_Comment [Aut omated message] The = Monocytes #) system which generated this result tra nsmitted reference range : <=0.8. The reference r yared was not used to int erpret this result as normal/abnormal . [facility] CenterDdhswkjCVKWWLWGZG3351-64-03 09:32:00 Test Item Value Reference Range Interpretation Comments Lymphocytes # (test code = Lymphocytes 1.0 1.0-5.5 #) [facility] CenterOyaxyhaIHACUEXJHA5150-45-98 09:32:00 Test Item Value Reference Range Interpretation Comments Segs-Bands # (test code = Segs-Bands #) 3.9 1.5-8.1 [facility] CenterKvozbxpHTGYSXWDJA8174-51-25 09:32:00 Test Item Value Reference Range Interpretation Comments Basophils (test code = 0.6 See_Comment [Aut omated message] The Basophils) system which ge nerated this result tra nsmitted reference range : <=1.0. The reference r yared was not used to int erpret this result as normal/abnormal . [facility] CenterLxwbblxUBYEIGMGJP0371-19-85 09:32:00 Test Item Value Reference Range Interpretation Comments Eosinophils (test code = 2.7 See_Comment [A utomated message] The Eosinophils) system which ge nerated this result tra nsmitted reference range : <=4.0. The reference r yared was not used to int erpret this result as normal/abnormal . [facility] CenterDqnrzfbSEONJRGVZA4709-83-19 09:32:00 Test Item Value Reference Range Interpretation Comments Monocytes (test code = Monocytes) 10.4 2.0-12.0 [facility] CenterZiyrcuvFFFIRRZNCD0775-54-22 09:32:00 Test Item Value Reference Range Interpretation Comments Lymphocytes (test code = Lymphocytes) 18.1 20.0-40.0 [facility] CenterWynonzcXQVCDDBDPW9670-86-44 09:32:00 Test Item Value Reference Range Interpretation Comments Segs (test code = Segs) 68.2 45.0-75.0 [facility] CenterXiqrdcsLJQIQAXHPJ9890-93-05 09:32:00 Test Item Value Reference Range Interpretation Comments Platelet (test code = Platelet) 213 133-450 [facility] CenterEngceosFGPWLCPOQH4669-30-55 09:32:00 Test Item Value Reference Range Interpretation Comments RDW (test code = RDW) 14.3 11.5-14.5 [facility] CenterLpymzlfXUOQSUXRUB2756-94-27 09:32:00 Test Item Value Reference Range Interpretation Comments MPV (test code = MPV) 8.0 7.4-10.4 [facility] CenterXmdziybLGVJVBBOSZ9618-19-34 09:32:00 Test Item Value Reference Range Interpretation Comments MCH (test code = MCH) 27.4 pg 27.0-31.0 [facility] CenterOvmvzcaQOAKNKAMYP6567-55-85 09:32:00 Test Item Value Reference Range Interpretation Comments MCV (test code = MCV) 78.6 80.0-94.0 [facility] CenterPtbarujMXKZWXDVQK7352-28-62 09:32:00 Test Item Value Reference Range Interpretation Comments Hct (test code = Hct) 22.8 42.0-54.0 [facility] CenterQqcwrehFLPLRPZFXO6497-90-34 09:32:00 Test Item Value Reference Range Interpretation Comments MCHC (test code = MCHC) 34.9 32.0-36.0 [facility] CenterEtzkftlPWBSAOHVSL5254-31-91 09:32:00 Test Item Value Reference Range Interpretation Comments Hgb (test code = Hgb) 7.9 14.0-18.0 [facility] CenterXbgjreoGJBZWUWGEE1538-03-36 09:32:00 Test Item Value Reference Range Interpretation Comments RBC (test code = RBC) 2.90 4.70-6.10 [facility] CenterQnmfapeLMSKWQDLJT0398-48-91 09:32:00 Test Item Value Reference Range Interpretation Comments WBC (test code = WBC) 5.7 3.7-10.4 [facility] CenterVluppvtXVEHZLCPBY2523-58-75 09:32:00 Test Item Value Reference Range Interpretation Comments Sed Rate (test code = 80 See_Comment [Auto mated message] The Sed Rate) system which ge nerated this result transmit emerson reference range : <=15. The reference range was not used to interpr et this result as erinn l/abnormal. [facility] SouthGjonvpzNZSUWINGPR8253-64-29 09:32:00 Test Item Value Reference Range Interpretation Comments Tot Prot (SPE) (test code = Tot Prot 7.0 6.4-8.4 (SPE)) [facility] SouthGcwsrobLDJFYPLEAM5664-61-91 09:32:00 Test Item Value Reference Range Interpretation Comments SPE Interp (test Total protein and serum code = SPE Interp) albumin are within normal limits. Serum capillary protein electrophoresis shows an elevated alpha-1 globulin fraction. No monoclonal proteins are identified. The electrophoretic pattern is consistent with the acute phase of an inflammatory process. Clinical correlation is required. Interpretation performed at [facility]. [facility] SouthObhccxqHWLMQPQVRA3052-77-51 09:32:00 Test Item Value Reference Range Interpretation Comments Gamma Glob (test code = Gamma Glob) 1.13 0.71-1.57 [place] 388918-03-11 09:32:00 Test Item Value Reference Range Interpretation Comments Beta Glob (test code = Beta Glob) 0.83 0.50-1.15 [facility] SouthOajmmjdAAQREOAVDU5311-95-91 09:32:00 Test Item Value Reference Range Interpretation Comments Alpha 2 Glob (test code = Alpha 2 Glob) 0.85 0.45-1.00 [facility] CenterIqrqrzmTZQOCRTISP2556-55-85 09:32:00 Test Item Value Reference Range Interpretation Comments Alpha 1 Glob (test code = Alpha 1 Glob) 0.48 0.18-0.41 [facility] SouthWemtzyzEDGZKQTGZH7116-42-66 09:32:00 Test Item Value Reference Range Interpretation Comments Albumin (SPE) (test code = Albumin 3.72 3.57-5.55 (SPE)) [facility] CenterVhnostkWEIBZCQRJK6095-87-69 09:32:00 Test Item Value Reference Range Interpretation Comments Beta % (test code = Beta %) 11.8 7.8-13.7 [facility] SouthGdqyrgmWRNPDLVQZG0174-53-26 09:32:00 Test Item Value Reference Range Interpretation Comments Gamma % (test code = Gamma %) 16.2 11.1-18.7 [facility] SouthZlwuwksEIBOOFKDGX8472-78-79 09:32:00 Test Item Value Reference Range Interpretation Comments Alpha 2 % (test code = Alpha 2 %) 12.1 7.0-11.9 [facility] CenterUtsdbjuXWNRVJGQEA6259-53-33 09:32:00 Test Item Value Reference Range Interpretation Comments Alpha 1 % (test code = Alpha 1 %) 6.8 2.8-4.9 [facility] CenterDrnvnisBBMDHAGPBO0799-92-87 09:32:00 Test Item Value Reference Range Interpretation Comments Albumin % (test code = Albumin %) 53.1 55.8-66.1 [facility] SouthEnusegjLQTHLAMCWV0546-23-86 09:32:00 Test Item Value Reference Range Interpretation Comments C3 Complement (test code = C3 91 88-201 Complement) [facility] SouthAtbyssaOBSEAUWLOV7542-73-45 09:32:00 Test Item Value Reference Range Interpretation Comments MIKE Ser Pattern (test See interpretation. code = MIKE Ser Pattern) [facility] SouthGhkyvrnTCEBXYXEDM7132-99-07 09:32:00 Test Item Value Reference Range Interpretation Comments MIKE Ser Interp Serum immunofixation (test code = MIKE electrophoresis reveals a Ser Interp) polyclonal pattern of immunoglobulins. No monoclonal proteins are identified. Interpretation performed at [facility]. [facility] SouthDqmnliiRRYTJAKWMV9007-47-83 09:32:00 Test Item Value Reference Range Interpretation Comments C4 Complement (test code = C4 29 16-47 Complement) [facility] SouthHztwlkxLPDYCTBQMB8157-86-58 09:32:00 Test Item Value Reference Range Interpretation Comments P-ANCA (test code = Negative (12/17/17 4:32 P-ANCA) AM) [facility] SouthHxixguqDBDMQWBPHR4132-86-20 09:32:00 Test Item Value Reference Range Interpretation Comments C-ANCA (test code = Negative (12/17/17 4:32 C-ANCA) AM) [facility] SouthAtefmimKFSCCGNDJU8222-39-79 09:32:00 Test Item Value Reference Range Interpretation Comments Hep Bs Ag (test code Negative *NA*(12/17/17 = Hep Bs Ag) 4:32 AM) [facility] SouthRrbchvgBCGRCXPJTU5821-42-00 09:32:00 Test Item Value Reference Range Interpretation Comments Hep Bs Ab (test code = Hep Bs Ab) no gt [facility] SouthXtfprxcQHTJBCIVSX1100-71-89 09:32:00 Test Item Value Reference Range Interpretation Comments Hep B Core Ab (test Negative *NA*(12/17/17 code = Hep B Core Ab) 4:32 AM) [facility] SouthIkcmgfxKTUQFLZQNN5028-76-87 09:32:00 Test Item Value Reference Range Interpretation Comments DNA Ab (DS) (test Negative (12/17/17 4:32 code = DNA Ab (DS)) AM) [facility] SouthTfndfmsVNVBEZRXYK7754-30-95 09:32:00 Test Item Value Reference Range Interpretation Comments Bonney/Lambda Free Light Chains Ratio 3.42 0.26-1.65 (test code = Bonney/Lambda Free Light Chains Ratio) [facility] SouthQhusmxnLLBGVQCMWN1722-00-02 09:32:00 Test Item Value Reference Range Interpretation Comments Bonney Free Light Chains (test code = 203.40 3.30-19.40 [place] Free Light Chains) [facility] SouthIdxodzcTOAHSAJGLX3556-32-85 09:32:00 Test Item Value Reference Range Interpretation Comments Lambda Free Light Chains (test code = 59.41 5.70-26.30 Lambda Free Light Chains) [facility] SouthTybpuzuBVYFBMEREZ5774-92-32 09:32:00 Test Item Value Reference Range Interpretation Comments CHRISTINA (test code = CHRISTINA) Negative (12/17/17 4:32 AM) [facility] SouthIwkqqlaGQRAEIYTZS1906-15-52 09:32:00 Test Item Value Reference Range Interpretation Comments RF Qnt (test code = no gt See_Comment [Automa emerson message] The RF Qnt) system which ge nerated this result transmit emerson reference range : <=20. The reference range was not used to interpr et this result as erinn l/abnormal. [facility]2018-03-09 22:29:00 Test Item Value Reference Range Interpretation Comments % Satur Fe (test code = % Satur Fe) 12 [facility]2018-03-09 22:29:00 Test Item Value Reference Range Interpretation Comments UIBC (test code = UIBC) 238 110-370 [facility]2018-03-09 22:29:00 Test Item Value Reference Range Interpretation Comments TIBC (test code = TIBC) 272 228-428 [facility]2018-03-09 22:29:00 Test Item Value Reference Range Interpretation Comments Iron (test code = Iron) 34 45-160 [facility]2018-03-09 22:29:00 Test Item Value Reference Range Interpretation Comments Ferritin Lvl (test code = Ferritin Lvl) 266 22-275 [facility]2018-03-09 22:29:00 Test Item Value Reference Range Interpretation Comments Vitamin B12 Lvl (test code = Vitamin [phone] B12 Lvl) [facility]2018-03-09 22:29:00 Test Item Value Reference Range Interpretation Comments Folate Lvl (test code = Folate Lvl) 19.0 [facility] CenterCHEM ARWAY3891-86-53 22:29:00 Test Item Value Reference Range Interpretation Comments Vitamin D, 25-OH, Total (test code = 12.3 30.0-100.0 Vitamin D, 25-OH, Total) [facility] CenterPARATHYROID INEOALH1989-31-38 22:29:00 Test Item Value Reference Range Interpretation Comments PTH Intact (test code = PTH Intact) 396.7 11.1-79.5 [facility]2018-03-09 22:29:00 Test Item Value Reference Range Interpretation Comments % Satur Fe (test code = % Satur Fe) 12 [facility] [id number] 22:29:00 Test Item Value Reference Range Interpretation Comments UIBC (test code = UIBC) 238 110-370 [facility] DKWIQ8331-70-25 22:29:00 Test Item Value Reference Range Interpretation Comments TIBC (test code = TIBC) 272 228-428 [facility] [id number] 22:29:00 Test Item Value Reference Range Interpretation Comments Iron (test code = Iron) 34 45-160 [facility] ZFLSP9472-76-60 22:29:00 Test Item Value Reference Range Interpretation Comments Ferritin Lvl (test code = Ferritin Lvl) 266 22-275 [facility] IIYSJ8799-21-48 22:29:00 Test Item Value Reference Range Interpretation Comments Vitamin B12 Lvl (test code = Vitamin 419 169-1930 B12 Lvl) [facility] [id number] 22:29:00 Test Item Value Reference Range Interpretation Comments Folate Lvl (test code = Folate Lvl) 19.0 [facility] CenterCHEM [id number] 22:29:00 Test Item Value Reference Range Interpretation Comments Vitamin D, 25-OH, Total (test code = 12.3 30.0-100.0 Vitamin D, 25-OH, Total) [facility] CenterPARATHYROID HPOEMMC3886-97-86 22:29:00 Test Item Value Reference Range Interpretation Comments PTH Intact (test code = PTH Intact) 396.7 11.1-79.5 [facility] CenterDvhffguDJZBXFOCXP5847-76-87 20:13:00 Test Item Value Reference Range Interpretation Comments Retic Auto (test code = Retic Auto) 1.5 0.5-1.5 [facility]wYLNURFCDMY3427-[facility]-68 20:13:00 Test Item Value Reference Range Interpretation Comments Retic Auto (test code = Retic Auto) 1.5 0.5-1.5 [facility] CenterCARDIAC DMFPQJF6742-66-97 20:12:00 Test Item Value Reference Range Interpretation Comments Troponin-I (test code no gt See_Comment [Auto mated message] The = Troponin-I) system which g enerated this result transmit emerson reference range : <=0.40. The reference r yared was not used to interpr et this result as erinn l/abnormal. [facility] CenterCARDIAC [id number] 20:12:00 Test Item Value Reference Range Interpretation Comments Total CK (test code = Total CK) 380 12-191 [facility] CenterConversion InnovationsDIAC [id number] 20:12:00 Test Item Value Reference Range Interpretation Comments CK MB (test code = CK MB) 5.4 0.5-3.6 [facility] CenterCARMedgenicsAC [id number] 20:12:00 Test Item Value Reference Range Interpretation Comments CK MB Index (test 1.4 1 See_Comment [Automate d message] The code = CK MB Index) system w [facility] generated this result transmit emerson reference range : <=2.5. The reference range was not used to interpr et this result as erinn l/abnormal. [facility] [employer] [id number] 20:12:00 Test Item Value Reference Range Interpretation Comments Phosphorus (test code = >13.5 mg/dL 2.5-4.5 Phosphorus) [facility] CenterFriend Trusted [id number] 20:12:00 Test Item Value Reference Range Interpretation Comments Bili Total (test code = Bili Total) 0.4 0.2-1.3 [facility] Center[facility] Trusted [id number] 20:12:00 Test Item Value Reference Range Interpretation Comments ALT (test code = ALT) 14 See_Comment [Auto mated message] The system which ge nerated this result transmit emerson reference range : <=65. The reference range was not used to interpr et this result as erinn l/abnormal. [facility] [employer] [id number] 20:12:00 Test Item Value Reference Range Interpretation Comments AST (test code = AST) 17 See_Comment [Auto mated message] The system which ge nerated this result transmit emerson reference range : <=37. The reference range was not used to interpr et this result as erinn l/abnormal. [facility] [employer] [id number] 20:12:00 Test Item Value Reference Range Interpretation Comments Alk Phos (test code = Alk Phos) 115 39-136 [facility] [employer] [id number] 20:12:00 Test Item Value Reference Range Interpretation Comments Albumin Lvl (test code = Albumin Lvl) 3.4 3.5-5.0 [facility] CenterFriend Trusted [id number] 20:12:00 Test Item Value Reference Range Interpretation Comments Total Protein (test code = Total 7.4 6.4-8.4 Protein) [facility] Center[facility] [id number] 20:12:00 Test Item Value Reference Range Interpretation Comments B/C Ratio (test code = B/C Ratio) 9 1 6-25 [facility] [employer] [id number] 20:12:00 Test Item Value Reference Range Interpretation Comments A/G Ratio (test code = A/G Ratio) 0.8 1 0.7-1.6 [facility] [employer] [id number] 20:12:00 Test Item Value Reference Range Interpretation Comments Globulin (test code = Globulin) 4.0 2.7-4.2 [facility] [employer]2018-03-09 20:12:00 Test Item Value Reference Range Interpretation Comments Troponin-I (test code no gt See_Comment [Auto mated message] The = Troponin-I) system which g enerated this result transmit emerson reference range : <=0.40. The reference r yared was not used to interpr et this result as erinn l/abnormal. [facility] [employer]2018-03-09 20:12:00 Test Item Value Reference Range Interpretation Comments Total CK (test code = Total CK) 380 12-191 [facility] [employer]2018-03-09 20:12:00 Test Item Value Reference Range Interpretation Comments CK MB (test code = CK MB) 5.4 0.5-3.6 [facility] [employer]2018-03-09 20:12:00 Test Item Value Reference Range Interpretation Comments CK MB Index (test 1.4 1 See_Comment [Automate d message] The code = CK MB Index) system [facility] generated this result transmit emerson reference range : <=2.5. The reference range was not used to interpr et this result as erinn l/abnormal. [facility] [facility] [employer]2018-03-09 20:12:00 Test Item Value Reference Range Interpretation Comments Phosphorus (test code = >13.5 mg/dL 2.5-4.5 Phosphorus) [facility]2018-03-09 20:12:00 Test Item Value Reference Range Interpretation Comments Bili Total (test code = Bili Total) 0.4 0.2-1.3 [facility]2018-03-09 20:12:00 Test Item Value Reference Range Interpretation Comments ALT (test code = ALT) 14 See_Comment [Auto mated message] The system which ge nerated this result transmit emerson reference range : <=65. The reference range was not used to interpr et this result as erinn l/abnormal. [facility] [id number] 20:12:00 Test Item Value Reference Range Interpretation Comments AST (test code = AST) 17 See_Comment [Auto mated message] The system which ge nerated this result transmit emerson reference range : <=37. The reference range was not used to interpr et this result as erinn l/abnormal. [facility] [id number] 20:12:00 Test Item Value Reference Range Interpretation Comments Alk Phos (test code = Alk Phos) 115 39-136 [facility]2018-03-09 20:12:00 Test Item Value Reference Range Interpretation Comments Albumin Lvl (test code = Albumin Lvl) 3.4 3.5-5.0 [facility]2018-03-09 20:12:00 Test Item Value Reference Range Interpretation Comments Total Protein (test code = Total 7.4 6.4-8.4 Protein) [facility]2018-03-09 20:12:00 Test Item Value Reference Range Interpretation Comments B/C Ratio (test code = B/C Ratio) 9 1 6-25 [facility]2018-03-09 20:12:00 Test Item Value Reference Range Interpretation Comments A/G Ratio (test code = A/G Ratio) 0.8 1 0.7-1.6 [facility]2018-03-09 20:12:00 Test Item Value Reference Range Interpretation Comments Globulin (test code = Globulin) 4.0 2.7-4.2 [employer]2018-03-09 16:39:00 Test Item Value Reference Range Interpretation Comments Troponin-I (test code no gt See_Comment [Auto mated message] The = Troponin-I) system which g enerated this result transmit emerson reference range : <=0.40. The reference r yared was not used to interpr et this result as erinn l/abnormal. [employer]2018-03-09 16:39:00 Test Item Value Reference Range Interpretation Comments Total CK (test code = Total CK) 350 12-191 [facility] [employer]2018-03-09 16:39:00 Test Item Value Reference Range Interpretation Comments CK MB (test code = CK MB) 4.8 0.5-3.6 [facility] [employer] [id number] 16:39:00 Test Item Value Reference Range Interpretation Comments CK MB Index (test 1.4 1 See_Comment [Automate d message] The code = CK MB Index) system w [employer] generated this result transmit emerson reference range : <=2.5. The reference range was not used to interpr et this result as erinn l/abnormal. [facility] [employer]2018-03-09 16:39:00 Test Item Value Reference Range Interpretation Comments Troponin-I (test code no gt See_Comment [Auto mated message] The = Troponin-I) system which g enerated this result transmit emerson reference range : <=0.40. The reference r yared was not used to interpr et this result as erinn l/abnormal. [facility] [employer]2018-03-09 16:39:00 Test Item Value Reference Range Interpretation Comments Total CK (test code = Total CK) 350 12-191 [facility] [employer]2018-03-09 16:39:00 Test Item Value Reference Range Interpretation Comments CK MB (test code = CK MB) 4.8 0.5-3.6 [facility] [employer] [id number] 16:39:00 Test Item Value Reference Range Interpretation Comments CK MB Index (test 1.4 1 See_Comment [Automate d message] The code = CK MB Index) system w [employer] generated this result transmit emerson reference range : <=2.5. The reference range was not used to interpr et this result as erinn l/abnormal. [facility] [employer]2018-03-09 14:38:00 Test Item Value Reference Range Interpretation Comments U Potassium (test code = U Potassium) 20.0 [facility] [employer]2018-03-09 14:38:00 Test Item Value Reference Range Interpretation Comments U Sodium (test code = U Sodium) 31 [facility] [employer]2018-03-09 14:38:00 Test Item Value Reference Range Interpretation Comments U Chloride (test code = U Chloride) 22 [facility] [employer]2018-03-09 14:38:00 Test Item Value Reference Range Interpretation Comments U Protein (test code = U Protein) 246.9 [facility]2018-03-09 14:38:00 Test Item Value Reference Range Interpretation Comments U Prot/Creat (test code = U 4.35 1 Prot/Creat) [facility] [id number] 14:38:00 Test Item Value Reference Range Interpretation Comments U Creatinine (test code = U Creatinine) 56.70 [facility]2018-03-09 14:38:00 Test Item Value Reference Range Interpretation Comments U Osmolality (test code = U Osmolality) 223 300-800 [facility] [id number] 14:38:00 Test Item Value Reference Range Interpretation Comments U Eos (test code = U None Seen (12/15/17 8:38 Eos) AM) [facility] [id number] 14:38:00 Test Item Value Reference Range Interpretation Comments U Potassium (test code = U Potassium) 20.0 [facility]2018-03-09 14:38:00 Test Item Value Reference Range Interpretation Comments U Sodium (test code = U Sodium) 31 [facility] [id number] 14:38:00 Test Item Value Reference Range Interpretation Comments U Chloride (test code = U Chloride) 22 [facility] [id number] 14:38:00 Test Item Value Reference Range Interpretation Comments U Protein (test code = U Protein) 246.9 [facility]2018-03-09 14:38:00 Test Item Value Reference Range Interpretation Comments U Prot/Creat (test code = U 4.35 1 Prot/Creat) [facility]2018-03-09 14:38:00 Test Item Value Reference Range Interpretation Comments U Creatinine (test code = U Creatinine) 56.70 [facility] [id number] 14:38:00 Test Item Value Reference Range Interpretation Comments U Osmolality (test code = U Osmolality) 223 300-800 [facility]2018-03-09 14:38:00 Test Item Value Reference Range Interpretation Comments U Eos (test code = U None Seen (12/15/17 8:38 Eos) AM) [facility] AND [id number] 14:33:00 Test Item Value Reference Range Interpretation Comments Micro? (test code = Performed *NA*(12/15/17 Micro?) 8:33 AM) [facility] AND [id number] 14:33:00 Test Item Value Reference Range Interpretation Comments UA Urobilinogen (test code = UA <=1.0 mg/dL 0.1-1.0 Urobilinogen) [facility] AND [id number] 14:33:00 Test Item Value Reference Range Interpretation Comments UA Glucose (test code = UA Glucose) 50 [facility] AND [id number] 14:33:00 Test Item Value Reference Range Interpretation Comments UA Color (test code = UA Color) STRAW [facility] AND [id number] 14:33:00 Test Item Value Reference Range Interpretation Comments UA Nitrite (test code Negative (12/15/17 8:33 = UA Nitrite) AM) [facility] AND [id number] 14:33:00 Test Item Value Reference Range Interpretation Comments UA Blood (test code = Small *ABN*(12/15/17 UA Blood) 8:33 AM) [facility] AND [id number] 14:33:00 Test Item Value Reference Range Interpretation Comments UA Leuk Est (test Negative (12/15/17 8:33 code = UA Leuk Est) AM) [facility] AND [id number] 14:33:00 Test Item Value Reference Range Interpretation Comments UA WBC (test code = 3 See_Comment [Automa emerson message] The UA WBC) system which ge nerated this result transmit emerson reference range : <=5. The reference range was not used to interpr et this result as erinn l/abnormal. [facility] AND [id number] 14:33:00 Test Item Value Reference Range Interpretation Comments UA Sq Epi (test code = UA Sq Occasional /LPF Epi) [facility] AND [id number] 14:33:00 Test Item Value Reference Range Interpretation Comments UA Mucus (test code = UA Mucus) Few /LPF [facility] AND [id number] 14:33:00 Test Item Value Reference Range Interpretation Comments UA RBC (test code = 1 See_Comment [Automa emerson message] The UA RBC) system which ge nerated this result transmit emerson reference range : <=2. The reference range was not used to interpr et this result as reinn l/abnormal. [facility] AND [id number] 14:33:00 Test Item Value Reference Range Interpretation Comments UA Turbidity (test code Slight *ABN*(12/15/17 = UA Turbidity) 8:33 AM) [facility] AND [id number] 14:33:00 Test Item Value Reference Range Interpretation Comments UA Spec Grav (test code = UA Spec 1.008 1 Grav) [facility] AND [id number] 14:33:00 Test Item Value Reference Range Interpretation Comments UA Ketones (test code = UA Negative mg/dL Ketones) [facility] AND [id number] 14:33:00 Test Item Value Reference Range Interpretation Comments UA pH (test code = UA pH) 5.0 1 5.0-8.0 [facility] AND [id number] 14:33:00 Test Item Value Reference Range Interpretation Comments UA Bili (test code = Negative *NA*(12/15/17 UA Bili) 8:33 AM) [facility] AND [id number] 14:33:00 Test Item Value Reference Range Interpretation Comments UA Protein (test code = UA Protein) 100 mg/dL [facility] AND [id number] 14:33:00 Test Item Value Reference Range Interpretation Comments Micro? (test code = Performed *NA*(12/15/17 Micro?) 8:33 AM) [facility] AND [id number] 14:33:00 Test Item Value Reference Range Interpretation Comments UA Urobilinogen (test code = UA <=1.0 mg/dL 0.1-1.0 Urobilinogen) [facility] AND [id number] 14:33:00 Test Item Value Reference Range Interpretation Comments UA Glucose (test code = UA Glucose) 50 [facility] AND [id number] 14:33:00 Test Item Value Reference Range Interpretation Comments UA Color (test code = UA Color) STRAW [facility] AND [id number] 14:33:00 Test Item Value Reference Range Interpretation Comments UA Nitrite (test code Negative (12/15/17 8:33 = UA Nitrite) AM) [facility] AND [id number] 14:33:00 Test Item Value Reference Range Interpretation Comments UA Blood (test code = Small *ABN*(12/15/17 UA Blood) 8:33 AM) [facility] AND [id number] 14:33:00 Test Item Value Reference Range Interpretation Comments UA Leuk Est (test Negative (12/15/17 8:33 code = UA Leuk Est) AM) [facility] AND [id number] 14:33:00 Test Item Value Reference Range Interpretation Comments UA WBC (test code = 3 See_Comment [Automa emerson message] The UA WBC) system which ge nerated this result transmit emerson reference range : <=5. The reference range was not used to interpr et this result as erinn l/abnormal. [facility] AND [id number] 14:33:00 Test Item Value Reference Range Interpretation Comments UA Sq Epi (test code = UA Sq Occasional /LPF Epi) [facility] AND [id number] 14:33:00 Test Item Value Reference Range Interpretation Comments UA Mucus (test code = UA Mucus) Few /LPF [facility] AND [id number] 14:33:00 Test Item Value Reference Range Interpretation Comments UA RBC (test code = 1 See_Comment [Automa emerson message] The UA RBC) system which ge nerated this result transmit emerson reference range : <=2. The reference range was not used to interpr et this result as erinn l/abnormal. [facility] AND [id number] 14:33:00 Test Item Value Reference Range Interpretation Comments UA Turbidity (test code Slight *ABN*(12/15/17 = UA Turbidity) 8:33 AM) [facility] AND [id number] 14:33:00 Test Item Value Reference Range Interpretation Comments UA Spec Grav (test code = UA Spec 1.008 1 Grav) [facility] AND [id number] 14:33:00 Test Item Value Reference Range Interpretation Comments UA Ketones (test code = UA Negative mg/dL Ketones) [facility] AND [id number] 14:33:00 Test Item Value Reference Range Interpretation Comments UA pH (test code = UA pH) 5.0 1 5.0-8.0 [facility] AND [id number] 14:33:00 Test Item Value Reference Range Interpretation Comments UA Bili (test code = Negative *NA*(12/15/17 UA Bili) 8:33 AM) [facility] [id number] 14:33:00 Test Item Value Reference Range Interpretation Comments UA Protein (test code = UA Protein) 100 mg/dL [facility] [id number] 12:48:00 Test Item Value Reference Range Interpretation Comments CK MB Index (test 1.3 1 See_Comment [Automate d message] The code = CK MB Index) system [facility] generated this result transmit emerson reference range : <=2.5. The reference range was not used to interpr et this result as erinn l/abnormal. [facility] [id number] 12:48:00 Test Item Value Reference Range Interpretation Comments proBNP (test code = 4088 See_Comment [Automa emerson message] The proBNP) system which ge nerated this result tra nsmitted reference range : <=125. The reference r yared was not used to int erpret this result as erinn l/abnormal. [facility] CenterannCARDIAC [id number] 12:48:00 Test Item Value Reference Range Interpretation Comments Total CK (test code = Total CK) 357 12-191 [facility] [id number] 12:48:00 Test Item Value Reference Range Interpretation Comments CK MB (test code = CK MB) 4.8 0.5-3.6 [facility] [id number] 12:48:00 Test Item Value Reference Range Interpretation Comments Troponin-I (test code no gt See_Comment [Auto mated message] The = Troponin-I) system which g enerated this result transmit emerson reference range : <=0.40. The reference r yared was not used to interpr et this result as erinn l/abnormal. [facility] [employer] [id number] 12:48:00 Test Item Value Reference Range Interpretation Comments A/G Ratio (test code = A/G Ratio) 0.8 1 0.7-1.6 [facility] [employer] [id number] 12:48:00 Test Item Value Reference Range Interpretation Comments Total Protein (test code = Total 7.0 6.4-8.4 Protein) [facility] [employer] [id number] 12:48:00 Test Item Value Reference Range Interpretation Comments Globulin (test code = Globulin) 3.9 2.7-4.2 [facility]2018-03-09 12:48:00 Test Item Value Reference Range Interpretation Comments Albumin Lvl (test code = Albumin Lvl) 3.1 3.5-5.0 [facility]2018-03-09 12:48:00 Test Item Value Reference Range Interpretation Comments Bili Total (test code = Bili Total) 0.4 0.2-1.3 [facility]2018-03-09 12:48:00 Test Item Value Reference Range Interpretation Comments Alk Phos (test code = Alk Phos) 108 39-136 [facility]2018-03-09 12:48:00 Test Item Value Reference Range Interpretation Comments ALT (test code = ALT) 15 See_Comment [Auto mated message] The system which ge nerated this result transmit emerson reference range : <=65. The reference range was not used to interpr et this result as erinn l/abnormal. [facility]2018-03-09 12:48:00 Test Item Value Reference Range Interpretation Comments AST (test code = AST) 13 See_Comment [Auto mated message] The system which ge nerated this result transmit emerson reference range : <=37. The reference range was not used to interpr et this result as erinn l/abnormal. [facility]2018-03-09 12:48:00 Test Item Value Reference Range Interpretation Comments B/C Ratio (test code = B/C Ratio) 9 1 6-25 [facility] [id number] 12:48:00 Test Item Value Reference Range Interpretation Comments D-Dimer (test code = D-Dimer) 1.17 [facility] [id number] 12:48:00 Test Item Value Reference Range Interpretation Comments CK MB Index (test 1.3 1 See_Comment [Automate d message] The code = CK MB Index) system [facility] generated this result transmit emerson reference range : <=2.5. The reference range was not used to interpr et this result as erinn l/abnormal. [facility] [id number] 12:48:00 Test Item Value Reference Range Interpretation Comments proBNP (test code = 4088 See_Comment [Automa emerson message] The proBNP) system which ge nerated this result tra nsmitted reference range : <=125. The reference r yared was not used to int erpret this result as erinn l/abnormal. [facility] [employer] [id number] 12:48:00 Test Item Value Reference Range Interpretation Comments Total CK (test code = Total CK) 357 12-191 [facility] CenterFlux[facility] [id number] 12:48:00 Test Item Value Reference Range Interpretation Comments CK MB (test code = CK MB) 4.8 0.5-3.6 [facility] CenterQPSoftwareAC [id number] 12:48:00 Test Item Value Reference Range Interpretation Comments Troponin-I (test code no gt See_Comment [Auto mated message] The = Troponin-I) system which g enerated this result transmit emerson reference range : <=0.40. The reference r yared was not used to interpr et this result as erinn l/abnormal. [facility] [employer] [id number] 12:48:00 Test Item Value Reference Range Interpretation Comments A/G Ratio (test code = A/G Ratio) 0.8 1 0.7-1.6 [facility] [employer] [id number] 12:48:00 Test Item Value Reference Range Interpretation Comments Total Protein (test code = Total 7.0 6.4-8.4 Protein) [facility] [employer] [id number] 12:48:00 Test Item Value Reference Range Interpretation Comments Globulin (test code = Globulin) 3.9 2.7-4.2 [facility] [employer] [id number] 12:48:00 Test Item Value Reference Range Interpretation Comments Albumin Lvl (test code = Albumin Lvl) 3.1 3.5-5.0 [facility] [employer] [id number] 12:48:00 Test Item Value Reference Range Interpretation Comments Bili Total (test code = Bili Total) 0.4 0.2-1.3 [facility] [employer] [id number] 12:48:00 Test Item Value Reference Range Interpretation Comments Alk Phos (test code = Alk Phos) 108 39-136 [facility] [employer] [id number] 12:48:00 Test Item Value Reference Range Interpretation Comments ALT (test code = ALT) 15 See_Comment [Auto mated message] The system which ge nerated this result transmit emerson reference range : <=65. The reference range was not used to interpr et this result as erinn l/abnormal. [facility]2018-03-09 12:48:00 Test Item Value Reference Range Interpretation Comments AST (test code = AST) 13 See_Comment [Auto mated message] The system which ge nerated this result transmit emerson reference range : <=37. The reference range was not used to interpr et this result as erinn l/abnormal. [facility]2018-03-09 12:48:00 Test Item Value Reference Range Interpretation Comments B/C Ratio (test code = B/C Ratio) 9 1 6-25 [id number] 12:48:00 Test Item Value Reference Range Interpretation Comments D-Dimer (test code = D-Dimer) 1.17 [facility]
[2022-08-28] MEDS ORDERED: LIDOCAINE 1% MPF 5 ML VIAL ONE (16:58)
--- NOTE | 2022-08-28 17:38 | ER ---
Nurse's Notes [facility] Name: Alex Cagle Age: 62 yrs Sex: Male : 1960 Arrival Date: 08/28/2022 Time: 14:05 Bed 12 Private MD: Toya Andrew H Diagnosis: Cutaneous abscess of right upper limb-right forearm;Cellulitis of right upper limb-right forearm Presentation: 08/28 15:24 Chief complaint: Patient states: Abscess to R forearm and RL leg x 1 week, denies ph fever. Coronavirus screen: Vaccine status: Patient reports receiving the 2nd dose of the covid vaccine. Ebola Screen: No symptoms or risks identified at this time. Initial Sepsis Screen: Does the patient meet any 2 criteria? No. Patient's initial sepsis screen is negative. Does the patient have a suspected source of infection? No. Patient's initial sepsis screen is negative. Risk Assessment: Do you want to hurt yourself or someone else? Patient reports no desire to harm self or others. Onset of symptoms was August 28, 2022. 15:24 Method Of Arrival: Ambulatory 15:24 Acuity: DEJAN 4 ph Historical: - Allergies: 15:26 NKA; ph - PMHx: 15:26 CHF; Diabetes - NIDDM; ESRD; Hypertension; insomnia; ph - PSHx: 15:26 bilateral knee repairs; right sholder; ph - Immunization history:: Adult Immunizations unknown. - Social history:: Smoking status: Patient denies any tobacco usage or history of. Screenin:57 Abuse screen: Denies threats or abuse. Denies injuries from another. Nutritional ss screening: No deficits noted. Tuberculosis screening: Never had TB. Fall Risk None identified. Assessment: 17:57 General: Appears in no apparent distress. Neuro: Level of Consciousness is awake, ss alert, obeys commands. Respiratory: Airway is patent Respiratory effort is even, unlabored. Derm: Abscess located on palmar aspect of right forearm is quarter sized, is hot to touch, is red, is raised. Vital Signs: 15:24 BP 161 / 83; Pulse 91; Resp 18; Temp 98.5; Pulse Ox 100% on R/A; Weight 89.81 kg; ph Height 5 ft. 7 in. (170.18 cm); 15:24 Body Mass Index 31.01 (89.81 kg, 170.18 cm) ED Course: 14:05 Patient arrived in ED. mr 14:05 Toya Andrew DO is Private Physician. mr 14:09 Ambrocio Mcdowell PA is PHCP. cp 14:09 Ambrocio Alonso MD is Attending Physician. cp 15:26 Triage completed. ph 15:27 Arm band placed on. ph 17:38 Keily Méndez RN is Primary Nurse. ss 17:57 Patient has correct armband on for positive identification. Bed in low position. Call ss light in reach. 17:57 No provider procedures requiring assistance completed. Patient did not have IV access ss during this emergency room visit. Administered Medications: 17:30 Drug: Lidocaine (1 %) 5 mg {Note: administered by KRISTINA Albrecht.} Route: Infiltration; ss 17:40 Drug: Hydrocodone-Acetaminophen (7.5 mg-325 mg) 1 tabs Route: PO; ss 17:57 Follow up: Response: No adverse reaction ss 17:40 Drug: Rocephin (cefTRIAXone) 1 grams Route: IM; Site: right gluteus; ss 17:57 Follow up: Response: No adverse reaction ss 17:40 Drug: Doxycycline 100 mg Route: PO; ss 17:57 Follow up: Response: No adverse reaction ss Medication: 17:57 VIS not applicable for this client. ss Outcome: 17:37 Discharge ordered by MD. cp 17:57 Discharged to home ambulatory, with family. ss 17:57 Condition: good 17:57 Discharge instructions given to patient, family, Instructed on discharge instructions, follow up and referral plans. medication usage, Demonstrated understanding of instructions, follow-up care, medications, Prescriptions given X 1. 17:59 Patient left the ED. ss Signatures: Mervat Rojas mr Keily Méndez RN RN Daja Anderson RN RN Ambrocio Mcdowell PA PA cp
--- NOTE | 2022-08-28 17:38 | EDPHYS ---
Physician Documentation [facility] Name: Alex Cagle Age: 62 yrs Sex: Male : 1960 Arrival Date: 08/28/2022 Time: 14:05 Bed 12 Private MD: Toya Andrew H ED Physician Ambrocio Alonso HPI: 08/28 15:00 This 62 yrs old Male presents to ER via Ambulatory with complaints of Abscess. cp 15:00 The patient presents with an abscess of the dorsal aspect of right forearm. cp Description: erythematous. 15:00 Onset: The symptoms/episode began/occurred 1 week(s) ago. cp 15:00 Possible cause(s): unknown. Associated signs and symptoms: The patient has no apparent cp associated signs or symptoms. Historical: - Allergies: 15:26 NKA; ph - PMHx: 15:26 CHF; Diabetes - NIDDM; ESRD; Hypertension; insomnia; ph - PSHx: 15:26 bilateral knee repairs; right sholder; ph - Immunization history:: Adult Immunizations unknown. - Social history:: Smoking status: Patient denies any tobacco usage or history of. ROS: 15:05 Constitutional: Negative for body aches, chills, fever. cp 15:05 ENT: Negative for drainage from ear(s), ear pain, sore throat, difficulty swallowing, difficulty handling secretions. 15:05 Respiratory: Negative for cough, shortness of breath, wheezing. 15:05 Abdomen/GI: Negative for abdominal pain, nausea, vomiting, and diarrhea. 15:05 Skin: Positive for abscess, cellulitis, of the dorsal aspect of right forearm. 15:05 Neuro: Negative for altered mental status, headache, weakness. 15:05 All other systems are negative. Exam: 15:10 Constitutional: The patient appears in no acute distress, alert, awake, non-toxic, well cp developed, well nourished. 15:10 Head/Face: Normocephalic, atraumatic. cp 15:10 Cardiovascular: Rate: normal, Pulses: Pulses are 2+ in right radial artery. 15:10 Respiratory: the patient does not display signs of respiratory distress, Respirations: normal, no use of accessory muscles, no retractions. 15:10 Musculoskeletal/extremity: Extremities: grossly normal except: noted in the dorsal aspect of right forearm: pain, swelling, tenderness, small abscess with surrounding erythema. Vital Signs: 15:24 BP 161 / 83; Pulse 91; Resp 18; Temp 98.5; Pulse Ox 100% on R/A; Weight 89.81 kg; ph Height 5 ft. 7 in. (170.18 cm); 15:24 Body Mass Index 31.01 (89.81 kg, 170.18 cm) ph Procedures: 17:45 I \T\ D: Incision and drainage was performed for an abscess of the dorsal aspect of right cp forearm Prepped with Betadine, Anesthetized with 5 ml's 1% Lidocaine. Incised with #11 blade. Drained small amount bloody fluid. Packed with iodoform gauze, Dressing: sterile 4x4 gauze, coban the patient tolerated the procedure well. MDM: 16:00 Differential diagnosis: abscess, cellulitis, insect bite. cp 16:52 Patient medically screened. cp 17:36 Data reviewed: vital signs, nurses notes. cp 17:36 Counseling: I had a detailed discussion with the patient and/or guardian regarding: the cp historical points, exam findings, and any diagnostic results supporting the discharge/admit diagnosis, the need for outpatient follow up, a family practitioner, to return to the emergency department if symptoms worsen or persist or if there are any questions or concerns that arise at home. Response to treatment: the patient's symptoms have mildly improved after treatment, and as a result, I will discharge patient. 08/28 14:40 Order name: I\T\D Setup; Complete Time: 17:02 cp Administered Medications: 17:30 Drug: Lidocaine (1 %) 5 mg {Note: administered by KRISTINA Albrecht.} Route: Infiltration; ss 17:40 Drug: Hydrocodone-Acetaminophen (7.5 mg-325 mg) 1 tabs Route: PO; ss 17:57 Follow up: Response: No adverse reaction ss 17:40 Drug: Rocephin (cefTRIAXone) 1 grams Route: IM; Site: right gluteus; ss 17:57 Follow up: Response: No adverse reaction ss 17:40 Drug: Doxycycline 100 mg Route: PO; ss 17:57 Follow up: Response: No adverse reaction ss Disposition Summary: 08/28/22 17:37 Discharge Ordered Location: Home cp Problem: new cp Symptoms: have improved cp Condition: Stable cp Diagnosis - Cutaneous abscess of right upper limb - right forearm cp - Cellulitis of right upper limb - right forearm cp Followup: cp - With: Private Physician - When: 1 - 2 days - Reason: Wound Recheck Discharge Instructions: - Discharge Summary Sheet cp - Skin Abscess cp - Cellulitis, Adult cp Forms: - Medication Reconciliation Form cp - Thank You Letter cp - Antibiotic Education cp - Prescription Opioid Use cp Prescriptions: - Doxycycline Hyclate 100 mg Oral Tablet - take 1 tablet by ORAL route every 12 hours; 20 tablet; Refills: 0, Product cp Selection Permitted Signatures: Keily Méndez RN RN ss Daja Anderson RN RN ph Ambrocio Mcdowell, PA PA cp
[2022-08-28] MEDS ORDERED: HYDROCODONE/APAP 7.5/325 MG TAB ONE (17:42)
[2022-08-28] MEDS ORDERED: WATER FOR INJ,STERILE 10 ML ONE (17:43)
[2022-08-28] MEDS ORDERED: DOXYCYCLINE 100 MG CAP PO ONE (17:43)
[2022-08-28] MEDS ORDERED: CEFTRIAXONE 1000 MG/VIAL ONE (17:43)
[2022-08-28 18:03] VITALS: BP 161/83; TEMP 98.5; O2SAT 100
== END 2022-08-28 17:59 | disposition home or self-care (01) ==
LOC: ER 14:01
PROC: 0H9DXZZ Drainage of Right Lower Arm Skin, External Approach (ICD-10-PCS; principal; 2022-08-28)
DX: L03.113 Cellulitis of right upper limb (principal); L02.413 Cutaneous abscess of right upper limb
CPT/HCPCS: 96372; 99283; 10060; J2001

== ENCOUNTER 2022-10-29 11:47 | Inpatient (IN) | payer OTHER ==
[2022-10-29] MEDS ORDERED: ACETAMINOPHEN 325 MG TABLET ONE (12:37)
--- OUTSIDE RECORDS SUMMARY | 2022-10-29 12:44 | XMS REPORT | Continuity of Care Document ---
:1960 Author Organization [facility] t Address [address] [place] [address] Care Team Providers Name Role Phone ARIE ANDREW Primary Care Physician Unavailable [id number] Attending Clinician Unavailable OMID SHARIF Attending Clinician Unavailable TEODORA MERRILL Attending Clinician Unavailable YESENIA SHRESTHA Attending Clinician Unavailable ADILIA OLSEN Attending Clinician Unavailable Adilia Olsen MD Attending Clinician Dionne Shaw MD Attending Clinician Rufina Hartley RN Attending Clinician Unavailable Theresa Lara Attending Clinician Unavailable Teodora Merrill MD Attending Clinician Arie Andrew Attending Clinician [facility] Attending Clinician Unavailable SHANNA TESFAYE Attending Clinician Unavailable Shanna Tesfaye II Attending Clinician Paulo Hong Attending Clinician JOHN YORK Attending Clinician Unavailable Cecy Arisa Attending Clinician CECY ARIAS Attending Clinician UnavailMELIZA Ray Attending Clinician Unavailable Norma SAAB, Jair Clayton Attending Clinician Unavailable Quita Tanner Attending Clinician Heriberto CRUZ, Pam Attending Clinician Roxy CRUZ, Eric Ruiz Attending Clinician Trevor Rachel Attending Clinician TREVOR RACHEL Attending Clinician Unavailable Omid Sharif MD Attending Clinician James CRUZ, John Tavarez Attending Clinician Paulina Skinner Attending Clinician Doctor Unassigned, [place] Attending Clinician Unavailable ANGIE CLEANING Attending Clinician Unavailable Black CRUZ, Angie Schilling Attending Clinician Mina CRUZ, Anna Keita Attending Clinician [phone] Megha Choi Attending Clinician MEGHA CHOI Attending Clinician Unavailable Ramses Eldridge MD Attending Clinician Only, Adc Test Attending Clinician Unavailable Clayton Waller Attending Clinician Marci Faulkner Attending Clinician MARCI FAULKNER Attending Clinician Unavailable RAMSES ELDRIDGE Attending Clinician Unavailable Redd Moses Attending Clinician Debi Moreira Attending Clinician Bandar Soto Attending Clinician Roger Cha Attending Clinician Joanne Aldrich Attending Clinician David Dexter Attending Clinician Leeann Sumner Attending Clinician Osvaldo Hector Jr Attending Clinician [id number] Admitting Clinician Unavailable OMID SHARIF Admitting Clinician [...] Cha Admitting Clinician David Dexter Admitting Clinician [phone] Leeann Sumner Admitting Clinician Payers Payer Name Policy Type Policy Number Effective Date Expiration Date S quan [facility] [id number] MEDICARE PART A \\T\\ [id number] 2018 B 00:00:00 COMMERCIAL [id number] 2018 NON-CONTRACT 00:00:00 GENERIC HUMANA CHOICE [id number] 2021 00:00:00 Problems Condition Condition Condition Status Onset Resolution [...] OVERLOAD 00:00: Rafael n Active 00 08/06/2020 [facility] DIALYSIS DIALYSIS Diagnosis Active 2019-102020-07-24 [facility] ISSUE ISSUE 08:37:00 l Active 00:00: Marlo 07/24/2020 [facility] PERITONITI PERITONIT Diagnosis Active 2020-07-09 Macho S, IS, 07-06 16:32:00 l DIABETES, DIABETES, 00:00: Herm dionne ESRD ON ESRD ON 00 DIALYSIS DIALYSIS Active 07/06/2020 [facility] ABD PAIN ABD PAIN Diagnosis Active 2020-07-06 Memoria Active 07-06 07:06:00 l 07/06/2020 00:00: Rafael n [facility] [address] [place] Dyspnea on Dyspnea on Disease Active U nivers exertion exertion 06-21 ity of 00:00: [place] 00 [facility] Dyspnea Dyspnea Disease Active Univers 06-21 ity of 00:00: [place] 00 [facility] WEAKNESS WEAKNESS Diagnosis Active 2020-08-[facility] AND AND 05-21 11:45:00 l SWELLING SWELLING 00:00: Rafael n Active 00 05/21/2020 [facility] Colon Colon Disease Active Overview: Univer s cancer cancer 05-13 Formattin ity of screening screening 00:00: [place] of this [place] 00 note Medical might be Branch different from the original. Added automatic ally from request for surgery [id number] ESRD (end ESRD (end Disease Active Uni vers stage stage 6-18 ity of renal renal 00:00: [place] disease) disease) 00 Medica l Branch GIB GIB Disease Active Univers (gastroint (gastroint 6-15 it y of estinal estinal 00:00: [place] bleeding) bleeding) 00 Medi sony Branch Gastrointe Gastrointe Disease Active Overview : Univers stinal stinal 6-15 Formattin ity of hemorrhage hemorrhage 00:00: g of this [place] with with 00 note Medical melena melena might be Branch different from the original. Added automatic ally from request for surgery [id number] NAUSEA/VOM NAUSEA/VO Diagnosis Active 2020-03-23 Memoria ITING MITING 03-23 01:05:00 l Active 00:00: Marlo 03/23/2020 [facility] Obesity Obesity Disease Active Univers (BMI (BMI 5-27 ity of 30-39.9) 30-39.9) 00:00: [place] 00 Medical Branch FEVER FEVER Diagnosis Active 2020-02-26 Mem oria Active 02-02 11:06:00 l 02/03/2020 00:00: Rafael cee [facility] 00 [place] Harvinder Blanton Disease Active Overview : Univers r polyp r polyp 2-06 Formattin ity o f 00:00: g of this 00 note Medical might be Branch different from the original. Added automatic ally from request for surgery [id number] AMS, AMS, Diagnosis Active 2019-10-31 Mem oria HYPONATREM HYPONATREM 10-28 11:04:00 l IA IA Active 00:00: Marlo 10/28/[address] [facility] Mar[place] NUMBNESS NUMBNESS Diagnosis Active 2019-10-28 Memoria Active 10-28 20:30:00 l 10/28/2019 00:00: Rafael cee [facility] 00 [place] AMS AMS Diagnosis Active 2018-102019-09-23 Mem oria Active 10-14 21:56:00 l 08/14/2019 10:52: Rafael cee [facility] [place] PNA PNA Diagnosis Active 2019-04-05 Mem oria Active 04-05 20:15:00 l 04/05/2019 00:00: Rafael cee [facility] [address] [place] DIZZINES, DIZZINES, Diagnosis Active 2019-04-15 Memoria PNEUMONIA, [...] 20:08:00 l Active 00:00: Marlo 07/20/[address] [facility] Mar[place] RENAL/DO RENAL/DO Diagnosis Active 2018-07-31 Memoria NOT USE NOT USE 05-23 12:39:00 l FOR FOR 06:00: [place] CHARGES CHARGES 00 F/C NOTES F/C NOTES O O Active 05/23/2018 [facility] NEW NEW Diagnosis Active 2018-05-23 Mem oria EVALUATION EVALUATION 05-09 10:28:00 l Active 00:00: [place] 05/09/2018 00 [facility] HYPERTENSI HYPERTENS Diagnosis Active 2018-04-16 Memoria VE RONEN 04-14 13:14:00 l URGENCY, URGENCY, 08:00: Rafael cee CHEST PAIN CHEST PAIN 00 Active 04/14/2018 [facility] CHEST PAIN CHEST Diagnosis Active 2018-04-15 Memoria PAIN 04-14 01:42:00 l Active 08:00: Marlo 04/14/2018 00 [facility] ACUTE ACUTE Diagnosis Active 2018-03-19 Annie oriforrest DYSPNEA DYSPNEA 03-16 13:39:00 l Active 00:00: Mar[place] 03/16/2018 00 [facility] WEAKNESS WEAKNESS Diagnosis Active 2018-03-17 Memoria Active 03-16 05:41:00 l 03/16/2018 00:00: Rafael cee [facility] [address] [place] ESRD (end ESRD (end Disease Active Uni vers stage stage 4-28 ity of renal renal 00:00: [place] disease) disease) 00 Medica l on on Branch dialysis dialysis IN NEED OF IN NEED Diagnosis [facility] 2018[facility]01-[facility] -16 18:51:00 l DIALYSIS 00:00: [place] Active 00 01/22/[address] [facility] Mar[place] SOB SOB Diagnosis Active 2017-12-15 Mem oria Active 12-15 07:37:00 l 12/15/2017 00:00: Rafael n [facility] [place] ACUTE ACUTE Diagnosis Active 2017-12-15 Mem oria RENAL RENAL 12-15 10:05:00 l FAILURE, FAILURE, 00:00: Rafael cee FLUID FLUID 00 OVERLOAD, OVERLOAD, CHF CHF Active 12/15/2017 [facility] DM DM Disease Active Univers (diabetes (diabetes ity of mellitus) mellitus) [facility] HTN HTN Disease Active Univers (hypertens (hypertens it y of ion) ion) [facility] DIZZINESS DIZZINESS Diagnosis Active 2019-04-15 Memoria AND AND 21:55:00 l GIDDINESS GIDDINESS Herm dionne Active [facility] DYSPNEA, DYSPNEA, Diagnosis Active 2018-03-19 Memoria UNSPECIFIE UNSPECIFIE 13:39:00 l D D Active [facility] ACUTE ACUTE Diagnosis Active 2017-12-15 Mem oria KIDNEY KIDNEY 10:05:00 l FAILURE, FAILURE, Rafael n UNSPECIFIE UNSPECIFIE D D Active [facility] HEART HEART Diagnosis Active 2017-12-15 Mem oria FAILURE, FAILURE, 10:05:00 l UNSPECIFIE UNSPECIFIE He rmann D D Active [facility] ACUTE ACUTE Diagnosis Active 2018-12-14 Mem oria PULMONARY PULMONARY 09:50:00 l EDEMA EDEMA [place] Active [facility] End stage End stage Problem 2020-08-14 Memoria renal renal 23:33:32 l disease disease [place] 08/14/2020 [facility] Type 2 Type 2 Problem 2019-02-10 Kojo lynn diabetes diabetes 12:48:45 l mellitus mellitus Rafael n with with diabetic diabetic chronic chronic kidney kidney disease disease 02/10/2019 [facility] Hypertensi Hypertens Problem 2019-02-10 Memoria ve chronic ronen 12:48:45 l kidney chronic [place] disease kidney with stage disease 5 chronic with stage kidney 5 chronic disease or kidney end stage disease or renal end stage disease renal disease 02/10/2019 [facility] Dependence Dependenc Problem 2019-02-10 Memoria on renal e on renal 12:48:45 l dialysis dialysis Rafael n 02/10/2019 [facility] Anxiety Anxiety Problem 2019-02-06 Mn moria disorder, disorder, 14:42:13 l unspecifie unspecifie He rmann d d 02/06/2019 [facility] Sleep Sleep Problem 2019-02-10 Memor ia apnea, apnea, 12:48:45 l unspecifie unspecifie He rmann d d 02/10/2019 [facility] 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-06 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 14:42:13 l (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) Herm dionne 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 therapy 02/06/2019 [facility] Pericardia Pericardi Problem 2019-02-10 Memoria l effusion al 12:48:45 l (noninflam effusion Herm dionne matory) (noninflam matory) 02/10/2019 [facility] Nausea Nausea Problem 2019-02-06 Kojo lynn 02/06/2019 14:42:13 l [facility] [place] Other Other Problem 2019-02-06 Memor ia symptoms symptoms 14:42:13 l and signs and signs Herm dionne concerning concerning food and food and fluid fluid intake intake 02/06/2019 [facility] Pneumonia, Pneumonia Problem 2019-04-10 Memoria unspecifie , 22:02:39 l d organism unspecifie He rmann d organism 04/10/2019 [facility] Altered Altered Problem 2019-11-07 Me moria mental mental 23:47:53 l status, status, [place] unspecifie unspecifie d d 11/07/2019 [facility] Acute Acute Problem 2019-02-10 Memor ia pulmonary pulmonary 12:48:45 l edema edema Mar[place] 02/10/2019 [facility] Acute Acute Problem 2019-02-10 Memor ia kidney kidney 12:48:45 l failure, failure, Rafael n unspecifie unspecifie d d 02/10/2019 [facility] Fluid Fluid Problem 2019-02-10 Memor ia overload, overload, 12:48:45 l unspecifie unspecifie He rmann d d 02/10/2019 [facility] Obesity, Obesity, Problem 2019-02-10 Memoria unspecifie unspecifie 12:48:45 l d d Mar[place] 02/10/2019 [facility] Body mass Body mass Problem 2019-02-10 Memoria index index 12:48:45 l (BMI) (BMI) [place] 33.0-33.9, 33.0-33.9, adult adult 02/10/2019 [facility] Chronic Chronic Problem 2019-02-10 Me moria obstructiv obstructiv 12:48:45 l e e [place] pulmonary pulmonary disease, disease, unspecifie unspecifie d d 02/10/2019 [facility] Dyspnea, Dyspnea, Problem 2018-03-23 Memoria unspecifie unspecifie 01:53:56 l d d [place] 03/23/2018 [facility] Single Single Problem 2020-08-10 Kojo lynn liveborn liveborn 09:04:08 l infant, , [place] delivered delivered vaginally vaginally 08/10/2020 [facility] Hypocalcem Hypocalce Problem 2018-03-28 Memoria ia jesenia 12:58:31 l 03/28/2018 Rafael n [facility] Other Other Problem 2018-03-28 Memor ia disorders disorders 12:58:31 l of of [place] phosphorus phosphorus metabolism metabolism 8 [facility] Hypo-osmol Hypo-osmo Problem 2018-03-28 Memoria ality and lality and 12:58:31 l hyponatrem hyponatrem He rmann ia ia 03/28/2018 [facility] Iron Iron Problem 2018-03-28 Memor ia deficiency deficiency 12:58:31 l anemia, anemia, [place] unspecifie unspecifie d d 03/28/2018 [facility] Secondary Secondary Problem 2018-03-28 Memoria hyperparat hyperparat 12:58:31 l hyroidism hyroidism Herm dionne of renal of renal origin origin 03/28/2018 [facility] Acute Acute Problem 2018-03-28 Memor ia diastolic diastolic 12:58:31 l (congestiv (congestiv He rmann e) heart e) heart failure failure 03/28/2018 [facility] Anemia in Anemia in Problem 2018-03-28 Memoria other other 12:58:31 l chronic chronic [place] diseases diseases classified classified elsewhere elsewhere 03/28/2018 [facility] Atheroscle Problem 2018-03-28 M emoria rosis of Atheroscle 12:58:31 l renal rosis of [place] artery renal artery 03/28/2018 [facility] Obstructiv Obstructi Problem 2018-03-28 Memoria e sleep ve sleep 12:58:31 l apnea apnea [place] (adult) (adult) (pediatric (pediatric ) ) 03/28/2018 [facility] Anxiety Anxiety Problem Resolve 2020-08-14 M emoria (finding) (finding) d 23:33:32 l Resolved [place] Problem 08/14/2020 [facility] Sleep Sleep Problem Resolve 2020-08-14 Mem oria apnea apnea d 23:33:32 l (finding) (finding) Herm dionne Resolved Problem 08/14/2020 [facility] Pericardia Pericardi Problem Active 2020-08-14 Memoria l effusion al 23:33:32 l (disorder) effusion Herm dionne (disorder) Active Problem 08/14/2020 [facility] Simple Simple Problem Active 2020-08-14 Kojo lynn obesity obesity 23:33:32 l (disorder) (disorder) He rmann Active Problem 08/14/2020 [facility] ALTERED ALTERED Diagnosis Active 2019-10-31 Memoria MENTAL MENTAL 11:04:00 l STATUS, STATUS, [place] UNSPECIFIE UNSPECIFIE D D Active [facility] PERITONITI PERITONIT Diagnosis Active 2020-07-09 Memoria S, IS, 16:32:00 l UNSPECIFIE UNSPECIFIE He rmann D D Active [facility] HYPO-OSMOL HYPO-OSMO Diagnosis Active 2019-10-31 Memoria ALITY AND LALITY AND 11:04:00 l HYPONATREM HYPONATREM He rmann IA IA Active [facility] TYPE 2 TYPE 2 Diagnosis Active 2020-07-09 Me moria DIABETES DIABETES 16:32:00 l MELLITUS MELLITUS Rafael n WITHOUT WITHOUT COMPLIC COMPLIC Active [facility] END STAGE END STAGE Diagnosis Active 2020-08-12 Memoria RENAL RENAL 08:39:00 l DISEASE DISEASE [place] Active [facility] FLUID FLUID Diagnosis Active 2020-08-12 Mem oria OVERLOAD, OVERLOAD, 08:39:00 l UNSPECIFIE UNSPECIFIE He rmann D D Active [facility] SINGLE SINGLE Diagnosis Active 2020-08-09 Me moria LIVEBORN LIVEBORN 07:58:00 l INFANT, INFANT, [place] DELIVERED DELIVERED VAGINA VAGINA Active [facility] PNEUMONIA, PNEUMONIA Diagnosis Active 2019-04-15 Memoria UNSPECIFIE , 21:55:00 l D ORGANISM UNSPECIFIE He rmann D ORGANISM Active [facility] History of Past Illness Condition Condition Condition Status Onset Resolution Last Treating Co mments Source Name Details Category Date Date Treatment Clinician Date Localized Localized Problem 2019-102020-07-26 2020-07-26 Memoria edema edema 0-16 21:30:35 21:30:35 l 07/24/2020 17:00: Rafael n 07/26/2020 00 [facility] Hypokalemi Hypokalem Problem 2019-102020-07-26 2020-07-26 Memoria a ia 0-16 21:30:35 21:30:35 l 07/24/2020 17:00: Rafael n 00 0 [facility] Type 2 Type 2 Problem 2020-07-17 2020-07-17 Memoria diabetes diabetes - 22:26:03 22:26:03 l mellitus mellitus 17:00: Rafael cee without without 00 complicati complicati ons ons 07/06/2020 0 [facility] Anemia, Anemia, Problem 2020-05-23 2020-05-23 Memoria unspecifie unspecifie 05-21 21:26:40 21:26:40 l d d 17:00: Marlo 05/21/2020 00 0 [facility] Constipati Constipat Problem 2020-05-23 2020-05-23 Memoria on, ion, 05-21 21:26:40 21:26:40 l unspecifie unspecifie 17:00: Jarad escalera d 00 05/21/2020 0 [facility] Pain in Pain in Problem 2020-02-05 2020-02-05 Memoria right hip right hip 02-02 21:56:20 21:56:20 l 02/03/2020 17:00: Rafael cee 00 0 [facility] Fever, Fever, Problem 2020-02-05 2020-02-05 Memoria unspecifie unspecifie 02-02 21:56:20 21:56:20 l d d 17:00: Marlo 02/03/202002/05/2020 [facility] Unspecifie Unspecifi Problem 2020-02-05 2020-02-05 Memewelina d fall, ed fall, 02-02 21:56:20 21:56:20 l initial initial 17:00: Marlo encounter encounter 00 02/03/2020 02/05/2020 [facility] Other Other Problem 2017-102019-02-10 2019-02-10 M emoria specified specified 12:48:45 12:48:45 l complicati complicati 04:09: Jarad rider on of on of vascular vascular prosthetic prosthetic devices, devices, implants implants and and grafts, grafts, initial initial encounter encounter 07/31/2018 02/10/2019 [facility] Hyperkalem Hyperkale Problem 2017-102019-02-06 2019-02-06 Macho ia jesenia 0-12 14:42:13 14:42:13 l 07/20/2018 05:00: Rafael cee 02/06/2019 00 [facility] Unspecifie Problem 2017-2019-02-06 2019-02-06 Memoria d Unspecifie 0-12 14:42:13 14:42:13 l complicati d 05:00: Rafael cee on of complicati 00 internal on of prosthetic internal device, prosthetic implant device, and graft, implant initial and graft, encounter initial encounter 07/20/2018 9 [facility] Hypertensi Hypertens Problem 2017-2018-03-28 2018-03-28 Memoria ve heart ronen heart 12-28 12:58:31 12:58:31 l disease disease 03:49: Marlo with heart with heart 05 failure failure 12/28/2017 8 [facility] Chronic Chronic Problem 2018-01-25 2018-01-25 Memoria kidney kidney 01-22 04:46:18 04:46:18 l disease, disease, 05:00: Rafael cee unspecifie unspecifie 00 d d 01/22/2018 01/25/2018 [facility] Allergies, Adverse Reactions, Alerts Allergy Allergy Status Severity Reaction(s) Onset Inactive Treating Comm ents Source Name Type Date Date Clinician NO KNOWN Drug Active Univers ALLERGIE Class [facility] [place] [facility] Social History Social Habit Start Date Stop Date Quantity Comments Source Tobacco use and 2020-03-23 2020-03-23 Smokeless tobacco Un iversity of exposure 00:00:00 00:00:00 non-user [place] [facility] History SDCA 2020-03-23 2020-03-23 5 University o f Financial 00:00:00 00:00:00 [place] [facility] History [facility] Food 2020-03-23 2020-03-23 1 Univers ity of Worry 00:00:00 00:00:00 [place] [facility] History [facility] Food 2020-03-23 2020-03-23 1 Univers ity of Scarcity 00:00:00 00:00:00 [place] [facility] History SDCA 2020-03-23 2020-03-23 2 University o f Transport Med 00:00:00 00:00:00 [place] Medic al Branch History SDCA 2020-03-23 2020-03-23 2 University o f Transport Non-Med 00:00:00 00:00:00 [place] M edical Branch Social History 2019-08-15 2019-08-15 [facility] devante 14:23:20 14:23:20 [birth year] Universit y of 00:00:00 00:00:00 [facility] Smoking Status Start Date Stop Date Source Never smoked tobacco [facility] Medications Ordered Filled Start Stop Current [...] acid Branch (FAUZIA-CONOR) 0.8 mg tablet zolpidem 2020-0 Yes 10mg Take 10 mg Univers [...] Medical daily as Branch needed. vitamin b 0 Yes 1{tbl} Take 1 Univ ers complex-vit [...] [place] c-folic 32 daily. Medical acid Branch (FAUZIA-CONRO) 0.8 mg tablet zolpidem 10 Yes 10mg [...] by mouth ity of 10:42: at bedtime [place] 32 as needed Medical for Branch Insomnia. diazePAM Yes 10mg Take 10 mg Uni vers (VALIUM) 5 7-15 by mouth 2 ity of mg tablet 10:42: (two) [place] 32 times Medical daily as Branch needed. fentaNYL 2019-10 No Route: IV, Mem oria (ANES) 10-12 Drug form: l 18:10: INJ, ONCE, Stop date: 08/12/20 12:10:00 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 lidocaine 2019-10 No Route: IV, Me moria (ANES) 10-12 Drug form: l 18:10: INJ, ONCE, Stop date: 08/12/20 12:10:00 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 propofol 2019-10 No Route: IV, Mem oria (ANES) 10-12 Drug form: l 18:10: INJ, ONCE, Stop date: 08/12/20 12:10:00 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 ondansetron 2019-10 No Route: IV, Memoria (ANES) 10-12 Drug form: l 18:10: INJ, ONCE, Stop date: 08/12/20 12:10:00 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 metoclopram 2019-10 No Route: IV, Memoria jeanna (ANES) 10-12 Drug form: l 18:10: INJ, ONCE, Stop date: 08/12/20 12:10:00 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 fentaNYL 2019-10 No Route: IV, Mem oria (ANES) 10-12 Drug form: l 18:10: INJ, ONCE, Stop date: 08/12/20 12:10:00 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 lidocaine 2019-10 No Route: IV, Me moria (ANES) 10-12 Drug form: l 18:10: INJ, ONCE, Stop date: 08/12/20 12:10:00 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 propofol 2019-10 No Route: IV, Mem oria (ANES) 1- Drug form: l 18:10: INJ, ONCE, Stop date: 08/12/20 12:10:00 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 ondansetron 2019-10 No Route: IV, Memoria (ANES) 1- Drug form: l 18:10: INJ, ONCE, Stop date: 08/12/20 12:10:00 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 metoclopram 2019-10 No Route: IV, Memoria jeanna (ANES) - Drug form: l 18:10: INJ, ONCE, Stop date: 08/12/20 12:10:00 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 fentaNYL 2019-10 No Route: IV, Mem oria (ANES) - Drug form: l 18:10: INJ, ONCE, Stop date: 08/12/20 12:10:00 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 lidocaine 2019-10 No Route: IV, Me moria (ANES) 10-12 Drug form: l 18:10: INJ, ONCE, Stop date: 08/12/20 12:10:00 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 propofol 2019-10 No Route: IV, Mem oria (ANES) - Drug form: l 18:10: INJ, ONCE, Stop date: 08/12/20 12:10:00 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 ondansetron 2019-10 No Route: IV, Memoria (ANES) 1- Drug form: l 18:10: INJ, ONCE, Stop date: 08/12/20 12:10:00 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 metoclopram 2019-10 No Route: IV, Memoria jeanna (ANES) - Drug form: l 18:10: INJ, ONCE, Stop date: 08/12/20 12:10:00 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 ceFAZolin 2019-10 No Route: IV, Me moria (ANES) 1- Drug form: l 17:50: INJ, ONCE, Stop date: 08/12/20 11:50:00 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 ceFAZolin 2019-10 No Route: IV, Me moria (ANES) 1- Drug form: l 17:50: INJ, ONCE, Stop date: 08/12/20 11:50:00 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 ceFAZolin 2019-10 No Route: IV, Me moria (ANES) 1-04 Drug form: l 17:50: INJ, ONCE, [place] 00 Stop date: 08/12/20 11:50:00 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 Sodium 2020-1 No Route: IV, Memor ia Chloride 1-04 Total l 0.9% IV 17:14: Volume: Marlo (ANES) 500 00 500, Start mL date: 08/12/20 11:14:00 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, Stop date: 08/12/20 12:14:00 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 Sodium 2020-1 No Route: IV, Memor ia Chloride 1-04 Total l 0.9% IV 17:14: Volume: Marlo (ANES) 500 00 500, Start mL date: 08/12/20 11:14:00 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, Stop date: 08/12/20 12:14:00 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 Sodium 2020-1 No Route: IV, Memor ia Chloride 1-04 Total l 0.9% IV 17:14: Volume: [place]lo (ANES) 500 00 500, Start mL date: 08/12/20 11:14:00 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, Stop date: 08/12/20 12:14:00 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 Sodium 2020-1 No 500 mL, Memoria Chloride 1-04 Rate: 75 l 0.9% IV 500 16:52: ml/hr, Herm dionne mL 00 Infuse over: 6.7 hr, Route: IV, Dosing Weight 111.182 kg, Total Volume: 500, Start date: 08/12/20 10:52:00 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, Duration: 1 doses or times, Stop date: 08/12/20 17:33:00 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, 2.32, m2, 0 Sodium 2020-1 No 500 mL, Memoria Chloride 1-04 Rate: 75 l 0.9% IV 500 16:52: ml/hr, Herm dionne mL 00 Infuse over: 6.7 hr, Route: IV, Dosing Weight 111.182 kg, Total Volume: 500, Start date: 08/12/20 10:52:00 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, Duration: 1 doses or times, Stop date: 08/12/20 17:33:00 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, 2.32, m2, 0 Sodium 2020-1 No 500 mL, Memoria Chloride 1-04 Rate: 75 l 0.9% IV 500 16:52: ml/hr, Herm dionne mL 00 Infuse over: 6.7 hr, Route: IV, Dosing Weight 111.182 kg, Total Volume: 500, Start date: 08/12/20 10:52:00 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, Duration: 1 doses or times, Stop date: 08/12/20 17:33:00 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, 2.32, m2, 0 Potassium 2019-10 No [...] s with feeding tube less than 14 [place] (Dobhoff, J-tube etc) and pediatric and patients. [...] s with feeding tube less than 14 [place] (Dobhoff, J-tube etc) and pediatric and patients. Potassium 2019-10 No Notes: Memori a Chloride 1-04 (Same as: l 13:46: K-Dur 20) [place] 00 "Do Not Crush" Give with food and full glass of water For patients unable to swallow tablet, dissolve in one half glass of water. Allow about 2 minutes for the tablets to disintegra te. Stir before giving to prepare slurry and administer . Please exclude Patient s with feeding tube less than 14 [place] (Dobhoff, J-tube etc) and pediatric and patients. Hydralazine 2019-10 No 10 mg, Kojo lynn 1-03 Route: l 21:11: IVP, Q4H, [place] Dosing Weight 111.182, kg, PRN Hypertensi on, Start date: 08/11/20 15:11:00 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, Duration: 30 day, Stop date: 09/10/20 15:10:00 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 Hydralazine 2019-10 No 10 mg, Kojo lynn 1-03 Route: l 21:11: IVP, Q4H, [place] 00 Dosing Weight 111.182, kg, PRN Hypertensi on, Start date: 08/11/20 15:11:00 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, Duration: 30 day, Stop date: 09/10/20 15:10:00 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 Hydralazine 2019-10 No 10 mg, Kojo lynn 10-11 Route: l 21:11: IVP, Q4H, Dosing Weight 111.182, kg, PRN Hypertensi on, Start date: 08/11/20 15:11:00 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, Duration: 30 day, Stop date: 09/10/20 15:10:00 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 Potassium 2019-10 No Notes: Memori a [...] s with feeding tube less than 14 [place] (Dobhoff, J-tube etc) and pediatric and patients. [...] s with feeding tube less than 14 [place] (Dobhoff, J-tube etc) and pediatric and patients. [...] s with feeding tube less than 14 [place] (Dobhoff, J-tube etc) and pediatric and patients. [...] franca 10-10 (Same as: l 15:00: Procrit) [place] 00 epoetin franca 2000 unit/1 ml VL Non-formul heydi For dialysis use only (Epogen) WASTE: F/P - Red; E -Red MEDICATION WASTE Product Size: 2000 mg Product Wasted: ___ mg Ambien 2019-10 No Notes: Memoria 10-10 (Same As: l 04:24: Ambien) [place] Ambien 2019-10 No Notes: [facility]oria 10-10 (Same As: l 04:24: Ambien) [place] Ambien 2019-10 No Notes: [facility]oria 10-10 (Same As: l 04:24: Ambien) [place] Melatonin 2019-10 No Notes: Kojo lynn MG [...] MG Oral 02:55: Bedtime, Rafael n Tablet PRN for [Ambien] sleep, 0 Refill(s) Ambien 2019-10 No PO, Memoria 10-10 Bedtime, 0 l 02:55: Refill(s) Zolpidem 2019-10 Yes 10 mg = 1 Kojo lynn tartrate 10 10-10 tab, PO, l MG Oral 02:55: Bedtime, Rafael n Tablet 00 PRN for [Ambien] sleep, 0 Refill(s) Ambien 2019-10 No PO, Memoria 10-10 Bedtime, 0 l 02:55: Refill(s) [place] 00 Zolpidem 2019-10 Yes 10 mg = 1 Kojo lynn tartrate 10 10-10 tab, PO, l MG Oral 02:55: Bedtime, Rafael n Tablet 00 PRN for [Ambien] sleep, 0 Refill(s) heparin 2019-10 No 10,000 Memoria 1-01 unit, 10 l 15:10: mL, Route: [place] 00 DIALYSIS, Drug form: INJ, ONCALL, Dosing Weight 111.182, kg, PRN Dialysis, Priority: STAT, Start date: 08/09/20 9:10:00 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, Duration: 1 doses or times, Stop date: Limited # of times, 0 heparin 2019-10 No 10,000 Memoria 1-01 unit, 10 l 15:10: mL, Route: [place] 00 DIALYSIS, Drug form: INJ, ONCALL, Dosing Weight 111.182, kg, PRN Dialysis, Priority: STAT, Start date: 08/09/20 9:10:00 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, Duration: 1 doses or times, Stop date: Limited # of times, 0 heparin 2019-10 No 10,000 Memoria 1-01 unit, 10 l 15:10: mL, Route: [place] 00 DIALYSIS, Drug form: INJ, ONCALL, Dosing Weight 111.182, kg, PRN Dialysis, Priority: STAT, Start date: 08/09/20 9:10:00 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, Duration: 1 doses or times, Stop [...] franca 0-31 (Same as: l 14:30: Procrit) [place] 00 epoetin [place] 72672 unit/1 ml VL. Non-formul heydi For dialysis use only. (Procrit) WASTE: F/P - Red; E -Red MEDICATION WASTE Product Size: 43958 unit Product Wasted: ___ unit epoetin 2019-10 No Notes: Memoria franca 0-31 (Same as: l 14:30: Procrit) [place] 00 epoetin [place] 92646 unit/1 ml VL. Non-formul heydi For dialysis use only. (Procrit) WASTE: F/P - Red; E -Red MEDICATION WASTE Product Size: 84402 unit Product Wasted: ___ unit epoetin 2019-10 No Notes: Memoria franca 0-31 (Same as: l 14:30: Procrit) [place] 00 epoetin [place] 83650 unit/1 ml VL. Non-formul heydi For dialysis use only. (Procrit) WASTE: F/P - Red; E -Red MEDICATION WASTE Product Size: 33094 unit Product Wasted: ___ unit Sodium 2019-10 No 250 mL, [facility]oria Chloride 0-31 Rate: To l 0.9% 14:13: prime line [place] (titrate) 00 and flush 250 mL remaining blood products., Dosing Weight 111.182, kg, Route: IV, Total Volume: 250, Priority: Routine, Start Date: 08/08/20 9:13:00 CDT, Duration: 1 day, Stop date: 08/09/20 9:12:00 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, Replace Every: 24 hr, 0 Sodium 2019-10 No 250 mL, [facility]oria Chloride 0-31 Rate: To l 0.9% 14:13: prime line [place] (titrate) 00 and flush 250 mL remaining blood products., Dosing Weight 111.182, kg, Route: IV, Total Volume: 250, Priority: Routine, Start Date: 08/08/20 9:13:00 CDT, Duration: 1 day, Stop date: 08/09/20 9:12:00 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, Replace Every: 24 hr, 0 Sodium 2019-10 No 250 mL, Memoria Chloride 0-31 Rate: To l 0.9% 14:13: prime line [place] (titrate) 00 and flush 250 mL remaining blood products., Dosing Weight 111.182, kg, Route: IV, Total Volume: 250, Priority: Routine, Start Date: 08/08/20 9:13:00 CDT, Duration: 1 day, Stop date: 08/09/20 9:12:00 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, Replace Every: 24 hr, 0 Amlodipine 2019-10 No 1 cap, Memor ia 10 MG / 0-31 Route: PO, l Benazepril 14:00: Drug Form: H ermann hydrochlori 00 CAP, de 20 MG Dosing Oral Weight Capsule 111.182, kg, Daily, Start date: 08/08/20 9:00:00 CDT, Duration: 30 day, Stop date: 09/06/20 9:00:00 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 carvedilol 2019-10 No 12.5 mg, Mem oria 0-31 Route: PO, l 14:00: Drug form: [place] 00 TAB, Q12H, Dosing Weight 111.182, kg, Start date: 08/08/20 9:00:00 CDT, Duration: 30 day, Stop date: 09/06/20 21:00:00 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 amLODIPine 2019-10 No Notes: Memor ia [...] Duration: 30 day, Stop date: 09/06/20 9:00:00 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 carvedilol 2019-10 No 12.5 mg, Mem oria 0-31 Route: PO, l 14:00: Drug form: [place] 00 TAB, Q12H, Dosing Weight 111.182, kg, Start date: 08/08/20 9:00:00 CDT, Duration: 30 day, Stop date: 09/06/20 21:00:00 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 amLODIPine 2019-10 No Notes: Memor ia 0-31 (Same as: l 14:00: Norvasc) [place] lisinopril 2019-10 No Notes: Memor ia 0-31 (Same as: l 14:00: Prinivil, [place] Zestril) Amlodipine 2019-10 No 1 cap, Memor ia 10 MG / 0-31 Route: PO, l Benazepril 14:00: Drug Form: H ermann hydrochlori 00 CAP, de 20 MG Dosing Oral Weight Capsule 111.182, kg, Daily, Start date: 08/08/20 9:00:00 CDT, Duration: 30 day, Stop date: 09/06/20 9:00:00 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 carvedilol 2019-10 No 12.5 mg, Mem oria 0-31 Route: PO, l 14:00: Drug form: [place] 00 TAB, Q12H, Dosing Weight 111.182, kg, Start date: 08/08/20 9:00:00 CDT, Duration: 30 day, Stop date: 09/06/20 21:00:00 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 amLODIPine 2019-10 No Notes: Memor ia 0-31 (Same as: l 14:00: Norvasc) [place] lisinopril 2019-10 No Notes: Memor ia 0-31 (Same as: l 14:00: Prinivil, [place] Zestril) Dilaudid 2019-10 No Notes: [facility]oria 0-31 Same as: l 13:46: Dilaudid [place] Dilaudid 2019-10 No Notes: [facility]oria 0-31 Same as: l 13:46: Dilaudid [place] Dilaudid 2019-10 No Notes: [facility]oria 0-31 Same as: l 13:46: Dilaudid [place] Epogen 2019-10 No 11,000 Memoria 0-31 unit, l 13:01: Route: [place] 00 SUB-Q, Drug form: INJ, Q-M-W-F, Dosing Weight 111.182, kg, Priority: NOW, Start date: 08/08/20 8:01:00 CDT, Duration: 30 day, Stop date: 09/04/20 9:00:00 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 Epogen 2019-10 No 11,000 Memoria 0-31 unit, l 13:01: Route: [place] 00 SUB-Q, Drug form: INJ, Q-M-W-F, Dosing Weight 111.182, kg, Priority: NOW, Start date: 08/08/20 8:01:00 CDT, Duration: 30 day, Stop date: 09/04/20 9:00:00 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 Epogen 2019-10 No 11,000 Memoria 0-31 unit, l 13:01: Route: [place] 00 SUB-Q, Drug form: INJ, Q-M-W-F, Dosing Weight 111.182, kg, Priority: NOW, Start date: 08/08/20 8:01:00 CDT, Duration: 30 day, Stop date: 09/04/20 9:00:00 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 Morphine 2019-10 No Notes: Memoria 0-31 (Same l 10:27: as:MORPhin [place] 00 e Sulfate) Morphine 2019-10 No Notes: Memoria 0-31 (Same l 10:27: as:MORPhin [place] 00 e Sulfate) Morphine 2019-10 No Notes: [facility]oria 0-31 (Same l 10:27: as:MORPhin [place] 00 e Sulfate) Morphine 2019-10 No Notes: [facility]oria 0-31 (Same l 01:44: as:MORPhin [place] 00 e Sulfate) Morphine 2019-10 No Notes: [facility]oria 0-31 (Same l 01:44: as:MORPhin [place] 00 e Sulfate) Morphine 2019-10 No Notes: Memoria 0-31 (Same l 01:44: as:MORPhin [place] 00 e Sulfate) normal 2019-10 No 2,000 mL, Memori a saline 0.9% 0-30 Rate: 100 l IV 2,000 mL 22:22: ml/hr, Herm dionne 00 Infuse over: 20 hr, Route: IV, Dosing Weight 111.182 kg, Total Volume: 2,000, Start date: 08/07/20 17:22:00 CDT, Duration: 30 day, Stop date: 09/06/20 17:21:00 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, 2.32, m2, 0 normal 2019-10 No 2,000 mL, Memori a saline 0.9% 0-30 Rate: 100 l IV 2,000 mL 22:22: ml/hr, Herm dionne 00 Infuse over: 20 hr, Route: IV, Dosing Weight 111.182 kg, Total Volume: 2,000, Start date: 08/07/20 17:22:00 CDT, Duration: 30 day, Stop date: 09/06/20 17:21:00 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, 2.32, m2, 0 normal 2019- No 2,000 mL, Memori a saline 0.9% 0-30 Rate: 100 l IV 2,000 mL 22:22: ml/hr, Herm dionne 00 Infuse over: 20 hr, Route: IV, Dosing Weight 111.182 kg, Total Volume: 2,000, Start date: 08/07/20 17:22:00 CDT, Duration: 30 day, Stop date: 09/06/20 17:21:00 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, 2.32, m2, 0 Lasix 2019-10 No 80 mg, Memoria 0-30 Route: l 13:00: IVP, Drug [place] 00 form: INJ, BID Diuretic, Dosing Weight 117.002, kg, Start date: 08/07/20 8:00:00 CDT, Duration: 30 day, Stop date: 09/05/20 16:00:00 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 Lasix 2019-10 No 80 mg, Memoria 0-30 Route: l 13:00: IVP, Drug [place] 00 form: INJ, BID Diuretic, Dosing Weight 117.002, kg, Start date: 08/07/20 8:00:00 CDT, Duration: 30 day, Stop date: 09/05/20 16:00:00 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 Lasix 2019-10 No 80 mg, Memoria 0-30 Route: l 13:00: IVP, Drug [place] 00 form: INJ, BID Diuretic, Dosing Weight 117.002, kg, Start date: 08/07/20 8:00:00 CDT, Duration: 30 day, Stop date: 09/05/20 16:00:00 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 Magnesium 2019-10 No Notes: Memori a Sulfate 0-30 WASTE: F/P l 12:58: - Sink; E [place] 00 - Municipal Trash Bin Potassium 2019-10 No Notes: Memori a Chloride 0-30 (Same as: l 12:58: K-Dur 20) [place] 00 "Do Not Crush" Give with food and full glass of water For patients unable to swallow tablet, dissolve in one half glass of water. Allow about 2 minutes for the tablets to disintegra te. Stir before giving to prepare slurry and administer . Please exclude Patient s with feeding tube less than 14 [place] (Dobhoff, J-tube etc) and pediatric and patients. [...] s with feeding tube less than 14 [place] (Dobhoff, J-tube etc) and pediatric and patients. Magnesium 2019-10 No Notes: Memori a Sulfate 0-30 WASTE: F/P l 12:58: - Sink; E [place] 00 - Municipal Trash Bin Potassium 2019-10 No Notes: Memori a Chloride 0-30 (Same as: l 12:58: K-Dur 20) [place] 00 "Do Not Crush" Give with food and full glass of water For patients unable to swallow tablet, dissolve in one half glass of water. Allow about 2 minutes for the tablets to disintegra te. Stir before giving to prepare slurry and administer . Please exclude Patient s with feeding tube less than 14 [place] (Dobhoff, J-tube etc) and pediatric and patients. Potassium 2019-10 No Notes: Memori a Chloride 0-30 Infuse at l 11:00: a rate of [place] 00 10 mEq/hr. (Same as: KCL) Potassium 2019-10 No Notes: Memori a Chloride 0-30 Infuse at l 11:00: a rate of [place] 00 10 mEq/hr. (Same as: KCL) Potassium 2019-10 No Notes: Memori a Chloride 0-30 Infuse at l 11:00: a rate of [place] 00 10 mEq/hr. (Same as: KCL) normal 2020-1 No 250 mL, Memoria saline 0.9% 0-30 Rate: 50 l IV 250 mL 10:38: ml/hr, Rafale n 00 Infuse over: 5 hr, Route: [...] Duration: 30 day, Stop date: 09/06/20 5:36:00 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, 2.32, m2 normal 2020-1 No 250 mL, Memoria saline 0.9% 0-30 Rate: 50 l IV 250 mL 10:37: ml/hr, Rafael n 00 Infuse over: 5 hr, Route: IV, Dosing Weight 111.182 kg, Total Volume: 250, Start date: 08/07/20 5:37:00 CDT, Duration: 30 day, Stop date: 09/06/20 5:36:00 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, 2.32, m2 normal 2019-10 No 250 mL, Memoria saline 0.9% 0-30 Rate: 50 l IV 250 mL 10:37: ml/hr, Rafael n 00 Infuse over: 5 hr, Route: IV, Dosing Weight 111.182 kg, Total Volume: 250, Start date: 08/07/20 5:37:00 CDT, Duration: 30 day, Stop date: 09/06/20 5:36:00 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, 2.32, m2 Hydralazine 2019-10 No Notes: [...] [place] 0-30 (Same As: l 05:20: Ambien) [place] Ambien 2019-10 No Notes: [facility] 0-30 (Same As: l 05:20: Ambien) [place] Ambien 2019-10 No Notes: [facility]oria 0-30 (Same As: l 05:20: Ambien) [place] heparin 2019-10 No Notes: [facility] 0-30 porcine l 05:00: heparin [place] heparin 2019-10 No Notes: [facility] 0-30 porcine l 05:00: heparin [place] 00 heparin 2019-10 No Notes: [facility] 0-30 porcine l 05:00: heparin [place] Lasix 2019-10 No Notes: [facility] 0-30 (Same as: l 01:32: Lasix) [place] 00 MEDICATION WASTE Product Size: 40 mg Product Wasted: ___ mg Lasix 2019-10 No Notes: [facility] 0-30 (Same as: l 01:32: Lasix) [place] 00 MEDICATION WASTE Product Size: 40 mg Product Wasted: ___ mg Lasix 2019-10 No Notes: Memoria 0-30 (Same as: l 01:32: Lasix) [place] 00 MEDICATION WASTE Product Size: 40 mg [...] 10 MG Oral hen. (Same Tablet as: [place] [[place] 325/10) 10/325] Acetaminoph 2019-10 No Notes: Kojo lynn en 325 MG / 0-30 (Same as: l Hydrocodone 01:31: [place] nn Bitartrate 00 325/5) Do 5 MG Oral not exceed Tablet 4gm/day of [[place] acetaminop 5/325] hen. Ondansetron 2019-10 No Notes: Kojo lynn 0-30 (Same as: l 01:31: Zofran) [place] 00 MEDICATION WASTE Product Size: 4 mg Product Wasted: ___ mg Acetaminoph 2019-10 No Notes: Do M emoria en 325 MG / 0-30 not exceed l Hydrocodone 01:31: 4gm/day of [place] Bitartrate 00 acetaminop 10 MG Oral hen. (Same Tablet as: [place] [[place] 325/10) 10/325] Acetaminoph 2019-10 No Notes: Kojo lynn en 325 MG / 0-30 (Same as: l Hydrocodone 01:31: [place] nn Bitartrate 00 325/5) Do 5 MG Oral not exceed Tablet 4gm/day of [[place] acetaminop 5/325] hen. Ondansetron 2019-10 No Notes: Kojo lynn 0-30 (Same as: l 01:31: Zofran) [place] 00 MEDICATION WASTE Product Size: 4 mg Product Wasted: ___ mg Acetaminoph 2019-10 No Notes: Do M emoria en 325 MG / 0-30 not exceed l Hydrocodone 01:31: 4gm/day of [place] Bitartrate 00 acetaminop 10 MG Oral hen. (Same Tablet as: [place] [[place] 325/10) 10/325] Acetaminoph 2019-10 No Notes: Kojo lynn en 325 MG / 0-30 (Same as: l Hydrocodone 01:31: [place] nn Bitartrate 00 325/5) Do 5 MG Oral not exceed Tablet 4gm/day of [[place] acetaminop 5/325] hen. Dilaudid 2019-10 No 1 [...] 0-30 25 mL, l (D50W) 01:09: Route: [place] 00 IVP, Drug Form: INJ, Dosing Weight 117.002, kg, PRN, PRN Blood Glucose Results, Start date: 08/06/20 20:09:00 CDT, Duration: 30 day, Stop date: 09/05/20 19:08:00 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, 0 Glucagon 2019-10 No 1 mg, Memoria 0-30 Route: IM, l 01:09: Drug form: [place] 00 PDR/INJ, PRN, Dosing Weight 117.002, kg, PRN Blood Glucose Results, Start date: 08/06/20 20:09:00 CDT, Duration: 30 day, Stop date: 09/05/20 19:08:00 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, 0 Dextrose 2020-1 No 12.5 gm, Memor ia 50% Syringe 0-30 25 mL, l (D50W) 01:09: Route: [place] 00 IVP, Drug Form: INJ, Dosing Weight 117.002, kg, PRN, PRN Blood Glucose Results, Start date: 08/06/20 20:09:00 CDT, Duration: 30 day, Stop date: 09/05/20 19:08:00 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, 0 Glucagon 2020-1 No 1 mg, Memoria 0-30 Route: IM, l 01:09: Drug form: [place] 00 PDR/INJ, PRN, Dosing Weight 117.002, kg, PRN Blood Glucose Results, Start date: 08/06/20 20:09:00 CDT, Duration: 30 day, Stop date: 09/05/20 19:08:00 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, 0 Dextrose 2020-1 No 12.5 gm, Memor ia 50% Syringe 0-30 25 mL, l (D50W) 01:09: Route: [place] 00 IVP, Drug Form: INJ, Dosing Weight 117.002, kg, PRN, PRN Blood Glucose Results, Start date: 08/06/20 20:09:00 CDT, Duration: 30 day, Stop date: 09/05/20 19:08:00 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, 0 Glucagon 2020-1 No 1 mg, Memoria 0-30 Route: IM, l 01:09: Drug form: [place] 00 PDR/INJ, PRN, Dosing Weight 117.002, kg, PRN Blood Glucose Results, Start date: 08/06/20 20:09:00 CDT, Duration: 30 day, Stop date: 09/05/20 19:08:00 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, 0 Magnesium 2020-1 No Notes: Memori [...] s with feeding tube less than 14 [place] (Dobhoff, J-tube etc) and pediatric and patients. Magnesium 2019-10 No Notes: Memori a Sulfate 0-30 WASTE: F/P l 00:44: - Sink; E [place] 00 - Municipal Trash Bin Potassium 2019-10 No Notes: Memori a Chloride 0-30 (Same as: l 00:44: K-Dur 20) [place] 00 "Do Not Crush" Give with food and full glass of water For patients unable to swallow tablet, dissolve in one half glass of water. Allow about 2 minutes for the tablets to disintegra te. Stir before giving to prepare slurry and administer . Please exclude Patient s with feeding tube less than 14 [place] (Dobhoff, J-tube etc) and pediatric and patients. Magnesium 2019-10 No Notes: Memori a Sulfate 0-30 WASTE: F/P l 00:44: - Sink; E [place] - Municipal Trash Bin Potassium 2019-10 No Notes: Memori a Chloride 0-30 (Same as: l 00:44: K-Dur 20) [place] 00 "Do Not Crush" Give with food and full glass of water For patients unable to swallow tablet, dissolve in one half glass of water. Allow about 2 minutes for the tablets to disintegra te. Stir before giving to prepare slurry and administer . Please exclude Patient s with feeding tube less than 14 [place] (Dobhoff, J-tube etc) and pediatric and patients. Dilaudid 2019-10 No 1 mg, Memoria 0-29 Route: l 23:27: IVP, ONCE, [place] 00 Dosing Weight 117.002, kg, Priority: STAT, Start date: 08/06/20 18:27:00 CDT, Stop date: 08/06/20 18:27:00 CDT Dilaudid 2019-10 No 1 mg, Memoria 0-29 Route: l 23:27: IVP, ONCE, [place] 00 Dosing Weight 117.002, kg, Priority: STAT, [...] 0- Route: PO, l 22:56: Drug form: [place] 00 ERTAB, ONCE, Dosing Weight 117.002, kg, Priority: STAT, Start date: 08/06/20 17:56:00 CDT, Stop date: 08/06/20 17:56:00 CDT Potassium 2019-1 No 40 mEq, Memor ia Chloride 0- [...] Memoria 0-29 Route: l 22:44: IVP, Drug [place] form: INJ, ONCE, Dosing Weight 117.002, kg, Priority: STAT, Start date: 08/06/20 17:44:00 CDT, Stop date: 08/06/20 17:44:00 CDT Morphine 2019- No 4 mg, Memoria 0-29 Route: l 22:44: IVP, ONCE, [place] Dosing Weight 117.002, kg, Priority: STAT, Start date: 08/06/20 17:44:00 CDT, Stop date: 08/06/20 17:44:00 CDT Zofran 2019-10 No 4 mg, Memoria 0-29 Route: l 22:44: IVP, Drug [place] 00 form: INJ, ONCE, Dosing Weight 117.002, kg, Priority: STAT, Start date: 08/06/20 17:44:00 CDT, Stop date: 08/06/20 17:44:00 CDT potassium 2019- Yes 20 mEq = 1 Me moria [...] CDT, Stop date: 07/24/20 9:59:00 CDT Potassium 2019-1 No 40 mEq, 15 Me moria Chloride [...] 00 Refill(s), de 20 MG Pharmacy: [facility] [place], 170.18, cm, 07/06/20 5:14:00 CDT, Height, 105, kg, 07/06/20 5:14:00 CDT, Weight cefdinir 2019-10 Yes 300 mg = 1 Mem oria 300 MG Oral 0-07 cap, PO, l Capsule 17:35: Daily, X 7 Herm dionne day, # 7 cap, 0 Refill(s), Pharmacy: [facility], 170.18, cm, 07/06/20 5:14:00 CDT, Height, 105, kg, 07/06/20 5:14:00 CDT, Weight Metronidazo 2019-10 Yes 500 mg = 1 Memoria le 500 MG 0-07 tab, PO, l Oral Tablet 17:35: Q8H, X 7 He rmann [Flagyl] 00 day, # 21 tab, 0 Refill(s), Pharmacy: [facility] [place], 170.18, cm, 07/06/20 5:14:00 CDT, Height, 105, kg, 07/06/20 5:14:00 CDT, Weight Amlodipine 2019-10 Yes 1 cap, PO, M emoria 10 MG / 0-07 Daily, # l Benazepril 17:35: 30 cap, 0 He rmann hydrochlori 00 Refill(s), de 20 MG Pharmacy: [facility] [place], 170.18, cm, 07/06/20 5:14:00 CDT, Height, 105, kg, 07/06/20 5:14:00 CDT, Weight cefdinir 2019-10 Yes 300 mg = 1 Mem oria 300 MG Oral 0-07 cap, PO, l Capsule 17:35: Daily, X 7 Herm dionne 00 day, # 7 cap, 0 Refill(s), Pharmacy: [facility], 170.18, cm, 07/06/20 5:14:00 CDT, Height, 105, kg, 07/06/20 5:14:00 CDT, Weight Metronidazo 2019-10 Yes 500 mg = 1 Memoria le 500 MG 0-07 tab, PO, l Oral Tablet 17:35: Q8H, X 7 He rmann [Flagyl] 00 day, # 21 tab, 0 Refill(s), Pharmacy: [facility], 170.18, cm, 07/06/20 5:14:00 CDT, Height, 105, kg, 07/06/20 5:14:00 CDT, Weight Amlodipine 2019-10 Yes 1 cap, PO, M emoria 10 MG / 0-07 Daily, # l Benazepril 17:35: 30 cap, 0 He rmann hydrochlori 00 Refill(s), de 20 MG Pharmacy: [facility] [place], 170.18, cm, 07/06/20 5:14:00 CDT, Height, 105, kg, 07/06/20 5:14:00 CDT, Weight cefdinir 2019-10 Yes 300 mg = 1 Mem oria 300 MG Oral 0-07 cap, PO, l Capsule 17:35: Daily, X 7 Herm dionne 00 day, # 7 cap, 0 Refill(s), Pharmacy: [facility], 170.18, cm, 07/06/20 5:14:00 CDT, Height, 105, kg, 07/06/20 5:14:00 CDT, Weight Metronidazo 2019-10 Yes 500 mg = 1 Memoria le 500 MG 0-07 tab, PO, l Oral Tablet 17:35: Q8H, X 7 He rmann [Flagyl] 00 day, # 21 tab, 0 Refill(s), Pharmacy: [facility] [place], 170.18, cm, 07/06/20 5:14:00 CDT, Height, 105, kg, 07/06/20 5:14:00 CDT, Weight Protonix 2019-10 No Notes: Memoria 0-07 Tablet l 12:30: should not [place] 00 be chewed or crushed. (Same as: Protonix) Protonix 2019-10 No Notes: Memoria 0-07 Tablet l 12:30: should not [place] 00 be chewed or crushed. (Same as: Protonix) Protonix 2019-10 No Notes: Memoria 0-07 Tablet l 12:30: should not [place] 00 be chewed or crushed. (Same as: Protonix) Potassium 2019-10 No Notes: Memori a Chloride 0-06 (Same as: l 22:47: K-Dur 20) [place] 00 "Do Not Crush" Give with food and full glass of water For patients unable to swallow tablet, dissolve in one half glass of water. Allow about 2 minutes for the tablets to disintegra te. Stir before giving to prepare slurry and administer . Please exclude Patient s with feeding tube less than 14 [place] (Dobhoff, J-tube etc) and pediatric and patients. Potassium 2019-10 No Notes: Memori a Chloride 0-06 (Same as: l 22:47: K-Dur 20) [place] 00 "Do Not Crush" Give with food and full glass of water For patients unable to swallow tablet, dissolve in one half glass of water. Allow about 2 minutes for the tablets to disintegra te. Stir before giving to prepare slurry and administer . Please exclude Patient s with feeding tube less than 14 [place] (Dobhoff, J-tube etc) and pediatric and patients. Potassium 2019-10 No Notes: Memori a Chloride 0-06 (Same as: l 22:47: K-Dur 20) [place] 00 "Do Not Crush" Give with food and full glass of water For patients unable to swallow tablet, dissolve in one half glass of water. Allow about 2 minutes for the tablets to disintegra te. Stir before giving to prepare slurry and administer . Please exclude Patient s with feeding tube less than 14 [place] (Dobhoff, J-tube etc) and pediatric and patients. Clonidine 2019-10 No Notes: Memori a 0-06 (Same As: l 22:46: Catapres) Clonidine 2019-10 No Notes: Memori a 0-06 (Same As: l 22:46: Catapres) Clonidine 2019-10 No Notes: Memori a 0-06 (Same As: l 22:46: Catapres) Sucralfate 2019-10 No Notes: May M emoria 100 MG/ML 0-06 interfere l Oral 18:00: w/enteral [place] Suspension 00 feeds - [Carafate] Take 1 hr before or 2 hr after antacids, dairy pdt, meals & minerals - On empty stomach. Sucralfate 2019-10 No Notes: February M emoria 100 MG/ML 0-06 interfere l Oral 18:00: w/enteral [place] Suspension 00 feeds - [Carafate] Take 1 hr before or 2 hr after antacids, dairy pdt, meals & minerals - On empty stomach. Sucralfate 2019-10 No Notes: February M emoria 100 MG/ML 0-06 interfere l Oral 18:00: w/enteral [place] Suspension 00 feeds - [Carafate] Take 1 [...] s with feeding tube less than 14 [place] (Dobhoff, J-tube etc) and pediatric and patients. [...] s with feeding tube less than 14 [place] (Dobhoff, J-tube etc) and pediatric and patients. Potassium 2019-10 No Notes: Memori a Chloride 0-06 (Same as: l 13:00: K-Dur 20) [place] 00 "Do Not Crush" Give with food and full glass of water For patients unable to swallow tablet, dissolve in one half glass of water. Allow about 2 minutes for the tablets to disintegra te. Stir before giving to prepare slurry and administer . Please exclude Patient s with feeding tube less than 14 [place] (Dobhoff, J-tube etc) and pediatric and patients. [...] s with feeding tube less than 14 [place] (Dobhoff, J-tube etc) and pediatric and patients. Potassium 2019-10 No Notes: Memori a [place] 0-05 (Same as: l 12:44: K-Dur 20) [place] 00 "Do Not Crush" Give with food and full glass of water For patients unable to swallow tablet, dissolve in one half glass of water. Allow about 2 minutes for the tablets to disintegra te. Stir before giving to prepare slurry and administer . Please exclude Patient s with feeding tube less than 14 [place] (Dobhoff, J-tube etc) and pediatric and patients. [...] s with feeding tube less than 14 [place] (Dobhoff, J-tube etc) and pediatric and patients. [...] s with feeding tube less than 14 [place] (Dobhoff, J-tube etc) and pediatric and patients. [...] s with feeding tube less than 14 [place] (Dobhoff, J-tube etc) and pediatric and patients. Potassium 2019-10 No Notes: Memori a Chloride 0-04 (Same as: l 15:16: K-Dur 20) [place] 00 "Do Not Crush" Give with food and full glass of water For patients unable to swallow tablet, dissolve in one half glass of water. Allow about 2 minutes for the tablets to disintegra te. Stir before giving to prepare slurry and administer . Please exclude Patient s with feeding tube less than 14 [place] (Dobhoff, J-tube etc) and pediatric and patients. Flagyl 2019-10 No Notes: [facility]oria 0-03 (Same as: l 23:00: Flagyl) [place] 00 Avoid alcohol. Flagyl 2019-10 No Notes: [facility] 0-03 (Same as: l 23:00: Flagyl) [place] 00 Avoid alcohol. Flagyl 2019-10 No Notes: [facility] 0-03 (Same as: l 23:00: Flagyl) [place] 00 Avoid alcohol. Potassium 2019-10 No Notes: [...] s with feeding tube less than 14 [place] (Dobhoff, J-tube etc) and pediatric and patients. Potassium 2019-10 No Notes: Memori a Chlor[place] 0-03 (Same as: l 16:13: K-Dur 20) [place] 00 "Do Not Crush" Give with food and full glass of water For patients unable to swallow tablet, dissolve in one half glass of water. Allow about 2 minutes for the tablets to disintegra te. Stir before giving to prepare slurry and administer . Please exclude Patient s with feeding tube less than 14 [place] (Dobhoff, J-tube etc) and pediatric and patients. Potassium 2019-10 No Notes: Memori a Chlor[place] 0-03 (Same as: l 16:13: K-Dur 20) [place] 00 "Do Not Crush" Give with food and full glass of water For patients unable to swallow tablet, dissolve in one half glass of water. Allow about 2 minutes for the tablets to disintegra te. Stir before giving to prepare slurry and administer . Please exclude Patient s with feeding tube less than 14 [place] (Dobhoff, J-tube etc) and pediatric and patients. [...] Memoria 0-01 (Same as: l 19:33: Zofran) [place] 00 Zofran 2019-10 No Notes: [facility] 0-01 (Same as: l 19:33: Zofran) [place] 00 Zofran 2019-10 No Notes: [facility] 0-01 (Same as: l 19:33: Zofran) [place] 00 Dextrose 2019-10 No 12.5 gm, Memor ia 50% Syringe 0-01 25 mL, l (D50W) 19:27: Route: [place] 00 IVP, Drug Form: INJ, Dosing Weight 105, kg, PRN, PRN Blood Glucose Results, Start date: 07/09/20 14:27:00 CDT, Duration: 30 day, Stop date: 08/08/20 14:26:00 CDT, 0 Glucagon 2019- No 1 mg, [facility]oria 0-01 Route: IM, l 19:27: Drug form: [place] 00 PDR/INJ, PRN, Dosing Weight 105, kg, PRN Blood Glucose Results, Start date: 07/09/20 14:27:00 CDT, Duration: 30 day, Stop date: 08/08/20 14:26:00 CDT, 0 Insulin 2020-1 No Notes: [facility]oria Lispro 0-01 (Same as: l 19:27: Humalog) Roll in palms of hands gently; Do not shake vigorously . WASTE: F/P - Black; E - Municipal Trash Bin Stable for 28 days at room temperatur e. Expires in days from ____Date Dextrose 2019- No 12.5 gm, Memor ia 50% Syringe 0-01 25 mL, l (D50W) 19:27: Route: IVP, Drug Form: INJ, Dosing Weight 105, kg, PRN, PRN Blood Glucose Results, Start date: 07/09/20 14:27:00 CDT, Duration: 30 day, Stop date: 08/08/20 14:26:00 CDT, 0 Glucagon 2019- No 1 mg, [facility] 0-01 Route: IM, l 19:27: Drug form: [place] 00 PDR/INJ, PRN, Dosing Weight 105, kg, [...] 0-01 25 mL, l (D50W) 19:27: Route: [place] 00 IVP, Drug Form: INJ, Dosing Weight 105, kg, PRN, PRN Blood Glucose Results, Start date: 07/09/20 14:27:00 CDT, Duration: 30 day, Stop date: 08/08/20 14:26:00 CDT, 0 Glucagon 2019-10 No 1 mg, [facility] 0-01 Route: IM, l 19:27: Drug form: [place] 00 PDR/INJ, PRN, Dosing Weight 105, kg, [...] s with feeding tube less than 14 [place] (Dobhoff, J-tube etc) and pediatric and patients. Potassium 2019-10 No Notes: Memori a [place] 0-01 (Same as: l 15:51: K-Dur 20) [place] 00 "Do Not Crush" Give with food and full glass of water For patients unable to swallow tablet, dissolve in one half glass of water. Allow about 2 minutes for the tablets to disintegra te. Stir before giving to prepare slurry and administer . Please exclude Patient s with feeding tube less than 14 [place] (Dobhoff, J-tube etc) and pediatric and patients. Potassium 2019-10 No Notes: Mem[facility] a [place] 0-01 (Same as: l 15:51: K-Dur 20) [place] 00 "Do Not Crush" Give with food and full glass of water For patients unable to swallow tablet, dissolve in one half glass of water. Allow about 2 minutes for the tablets to disintegra te. Stir before giving to prepare slurry and administer . Please exclude Patient s with feeding tube less than 14 [place] (Dobhoff, J-tube etc) and pediatric and patients. [...] 9-30 (Same as: l 13:16: K-Dur 20) [place] 00 "Do Not Crush" Give with food and full glass of water For patients unable to swallow tablet, dissolve in one half glass of water. Allow about 2 minutes for the tablets to disintegra te. Stir before giving to prepare slurry and administer . Please exclude Patient s with feeding tube less than 14 [place] (Dobhoff, J-tube etc) and pediatric and patients. [...] s with feeding tube less than 14 [place] (Dobhoff, J-tube etc) and pediatric and patients. [...] s with feeding tube less than 14 [place] (Dobhoff, J-tube etc) and pediatric and patients. Tylenol 0 No Notes: Do Memor ia 07-07 not exceed l 15:39: 4 gm/day. [place] 00 (Same as: Tylenol) Tylenol No Notes: Do Memor ia 07-07 not exceed l 15:39: 4 gm/day. (Same as: Tylenol) Tylenol No Notes: Do [...] lynn - (Same as: l 15:31: Apresoline [place] 00 ) May interfere w/enteral feedings. Take With Food Hydralazine 2019-0 No Notes: Kojo lynn - (Same as: l 15:31: Apresoline [place] 00 ) May interfere w/enteral feedings. Take With Food Miralax 2019-0 No Notes: Memoria - Dissolve l 14:00: in 8 oz of [place] 00 water or juice. (Same as: Miralax) [...] [facility]oria 07-07 (Same As: l 14:00: Maxipime) [place] 00 MEDICATION WASTE Product Size: 1000 mg [...] s with feeding tube less than 14 [place] (Dobhoff, J-tube etc) and pediatric and patients. [...] s with feeding tube less than 14 [place] (Dobhoff, J-tube etc) and pediatric and patients. Potassium 2020-0 No Notes: Memori a [place] 07-07 (Same as: l 13:: K-Dur 20) [place] "Do Not Crush" Give with food and full glass of water For patients unable to swallow tablet, dissolve in one half glass of water. Allow about 2 minutes for the tablets to disintegra te. Stir before giving to prepare slurry and administer . Please exclude Patient s with feeding tube less than 14 [place] (Dobhoff, J-tube etc) and pediatric and patients. Epogen 2020-0 No Notes: [facility]oria 07-07 Same as: l 13:08: Retacrit) [place] 00 epoetin franca-epbx 51264 unit/1 ml VL. WASTE: F/P - Red; E Red MEDICATION WASTE Product Size: 98965 unit Product Wasted: ___ unit Epogen 2020-0 No Notes: [facility] 07-07 Same as: l 13:08: Retacrit) [place] 00 epoetin franca-epbx 70649 unit/1 ml VL. WASTE: F/P - Red; E Red MEDICATION WASTE Product Size: 78112 unit Product Wasted: ___ unit Epogen 2020-0 No Notes: 07-07 Same as: l 13:08: Retacrit) [place] 00 epoetin franca-epbx 38647 unit/1 ml VL. WASTE: F/P - Red; E Red MEDICATION WASTE Product Size: 81664 unit Product Wasted: ___ unit potassium 2020-0 [...] s with feeding tube less than 14 [place] (Dobhoff, J-tube etc) and pediatric and patients. [...] s with feeding tube less than 14 [place] (Dobhoff, J-tube etc) and pediatric and patients. [...] s with feeding tube less than 14 [place] (Dobhoff, J-tube etc) and pediatric and patients. carvedilol 2020-0 No Notes: Memor ia 07-07 Give with l 02:00: food. [place] 00 (Same As: Coreg) tamsulosin 2020-0 No Notes: Memor ia 07-07 (Same As: l 02:00: Flomax) [place] 00 "Do Not Crush" carvedilol 2020-0 No Notes: Memor ia 07-07 Give with l 02:00: food. [place] 00 (Same As: Coreg) tamsulosin 2020-0 No Notes: Memor ia 07-07 (Same As: l 02:00: Flomax) [place] 00 "Do Not Crush" carvedilol 2020-0 No [...] sodium, 07-06 porcine l porcine 21:00: heparin [place] 2500 UNT/ML 00 Injectable Solution Hydralazine No [...] moria 07-06 infuse l 18:00: over 2.5 [place] 00 hours For adult patients only: Round [...] No 1 cap, Memor ia 10 MG 07-06 Route: PO, l Benazepril 18:00: Drug [...] Tablet 00 Avoid alcohol. Vancomycin 0 No 2000 mg: Me moria 07-06 infuse l 18:00: over 2.5 [place] 00 hours For adult patients only: Round [...] [facility]oria 9- (Same as: l 17:42: Valium) [place] acetaminoph No Notes: Do M emoria en-codeine 07-06 not exceed l #3 17:42: 4gm/day of [place] acetaminop hen. (Same as: Tylenol with Codeine # 3) Diazepam No Notes: [facility] 07-06 (Same as: l 17:42: Valium) potassium No Notes: Memori a chloride 07-06 (Same as: l 16:00: Potassium [place] 00 Chloride) potassium No Notes: Memori a chloride - (Same as: l 16:00: Potassium [place] 00 Chloride) potassium No Notes: Memori a chloride 9- (Same as: l 16:00: Potassium [place] 00 Chloride) Hydromorpho No Notes: Kojo lynn ne 07-06 Same as: l 13:57: Dilaudid Acetaminoph No Notes: Do M emoria en 325 MG / 07-06 not exceed l Hydrocodone 13:57: 4gm/day of [place] Bitartrate 00 acetaminop 10 MG Oral hen. (Same Tablet as: [place] [[place] 325/10) 10/325] Hydromorpho No Notes: Kojo lynn ne 07-06 Same as: l 13:57: Dilaudid [place] Acetaminoph No Notes: Do M emoria en 325 MG / 07-06 not exceed l Hydrocodone 13:57: 4gm/day of [place] Bitartrate 00 acetaminop 10 MG Oral hen. (Same Tablet as: [place] [[place] 325/10) 10/325] Hydromorpho 2020-0 No Notes: Kojo lynn ne 07-06 Same as: l 13:57: Dilaudid [place] 00 Acetaminoph 2020-0 No Notes: Do M emoria en 325 MG / 07-06 not exceed l Hydrocodone 13:57: 4gm/day of [place] Bitartrate 00 acetaminop 10 MG Oral hen. (Same Tablet as: [place] [[place] 325/10) 10/325] Potassium 2020-0 No 60 mEq, Memor ia [...] ne 07-06 Route: l 12:40: IVP, ONCE, [place] Dosing Weight 105, kg, Priority: STAT, Start date: 07/06/20 7:40:00 CDT, Stop date: 07/06/20 7:40:00 CDT Hydromorpho 2020-0 No 1 mg, Memor ia ne 07-06 Route: l 12:40: IVP, ONCE, [place] Dosing Weight 105, kg, Priority: STAT, Start [...] Vancomycin 2020-0 No 2001 mg: Me moria 07-06 infuse l 11:04: over 2.5 [place] 00 hours For adult patients only: Round to nearest 250 mg per Medical Staff approval MEDICATION WASTE Product Size: 1000 mg Product Wasted: ___ mg Morphine 2019-0 No Notes: [facility]oria 07-06 (Same l 10:32: as:MORPhin [place] 00 e Sulfate) Morphine 2020-0 No Notes: [facility]oria 07-06 (Same l 10:32: as:MORPhin [place] 00 e Sulfate) Morphine 2020-0 No Notes: [facility]oria 07-06 (Same l 10:32: as:MORPhin [place] 00 e Sulfate) furosemide 2019-0 Yes [id number] 80mg Take 1 U nivers (LASIX) 80 9-15 tablet by ity of mg tablet 00:00: mouth [place] 00 every Medical morning Branch and evening. tamsulosin 2020-0 Yes [id number] .4mg Take 1 U nivers 0.4 mg 24 9-15 capsule by ity of hr capsule 00:00: mouth [place] 00 daily. Medical Branch furosemide 2020-0 Yes [id number] 80mg Take 1 U nivers (LASIX) 80 9-15 tablet by ity of mg tablet 00:00: mouth [place] 00 every Medical morning Branch and evening. tamsulosin 2020-0 Yes [id number] .4mg Take 1 U nivers 0.4 mg 24 9-15 capsule by ity of hr capsule 00:00: mouth [place] 00 daily. Medical Branch furosemide 2020-0 Yes [id number] 80mg Take 1 U nivers (LASIX) 80 9-15 tablet by ity of mg tablet 00:00: mouth [place] 00 every Medical morning Branch and evening. tamsulosin 2020-0 Yes [id number] .4mg Take 1 U nivers 0.4 mg 24 9-15 capsule by ity of hr capsule 00:00: mouth [place] 00 daily. Medical Branch furosemide 2020-0 Yes [id number] 80mg Take 1 U nivers (LASIX) 80 9-15 tablet by ity of mg tablet 00:00: mouth [place] 00 every Medical morning Branch and evening. tamsulosin 2020-0 Yes [id number] .4mg Take 1 U nivers 0.4 mg 24 9-15 capsule by ity of hr capsule 00:00: mouth [place] 00 daily. Medical Branch furosemide 2020-0 Yes [id number] 80mg Take 1 U nivers (LASIX) 80 9-15 tablet by ity of mg tablet 00:00: mouth [place] 00 every Medical morning Branch and evening. tamsulosin 2020-0 Yes [id number] .4mg Take 1 U nivers 0.4 mg 24 9-15 capsule by ity of hr capsule 00:00: mouth [place] 00 daily. Medical Branch furosemide 2020-0 Yes [id number] 80mg Take 1 U nivers (LASIX) 80 9-15 tablet by ity of mg tablet 00:00: mouth [place] 00 every Medical morning Branch and evening. tamsulosin 2020-0 Yes [id number] .4mg Take 1 U nivers 0.4 mg 24 9-15 capsule by ity of hr capsule 00:00: mouth [place] 00 daily. Medical Branch furosemide 2020-0 Yes [id number] 80mg Take 1 U nivers (LASIX) 80 9-15 tablet by ity of mg tablet 00:00: mouth [place] 00 every Medical morning Branch and evening. tamsulosin 2020-0 Yes [id number] .4mg Take 1 U nivers 0.4 mg 24 9-15 capsule by ity of hr capsule 00:00: mouth [place] 00 daily. Medical Branch furosemide 2020-0 Yes [id number] 80mg Take 1 U nivers (LASIX) 80 9-15 tablet by ity of mg tablet 00:00: mouth [place] 00 every Medical morning Branch and evening. tamsulosin 2020-0 Yes [id number] .4mg Take 1 U nivers 0.4 mg 24 9-15 capsule by ity of hr capsule 00:00: mouth [place] 00 daily. Medical Branch furosemide 2020-0 Yes [id number] 80mg Take 1 U nivers (LASIX) 80 9-15 tablet by ity of mg tablet 00:00: mouth [place] 00 every Medical morning Branch and evening. tamsulosin 2020-0 Yes [id number] .4mg Take 1 U nivers 0.4 mg 24 9-15 capsule by ity of hr capsule 00:00: mouth [place] 00 daily. Medical Branch furosemide 2020-0 Yes [id number] 80mg Take 1 U nivers (LASIX) 80 9-15 tablet by ity of mg tablet 00:00: mouth [place] 00 every Medical morning Branch and evening. tamsulosin 2020-0 Yes [id number] .4mg Take 1 U nivers 0.4 mg 24 9-15 capsule by ity of hr capsule 00:00: mouth [place] 00 daily. Medical Branch furosemide 2020-0 Yes [id number] 80mg Take 1 U nivers (LASIX) 80 9-15 tablet by ity of mg tablet 00:00: mouth [place] 00 every Medical morning Branch and evening. tamsulosin 2020-0 Yes [id number] .4mg Take 1 U nivers 0.4 mg 24 9-15 capsule by ity of hr capsule 00:00: mouth [place] 00 daily. Medical Branch furosemide 2020-0 Yes [id number] 80mg Take 1 U nivers (LASIX) 80 9-15 tablet by ity of mg tablet 00:00: mouth [place] 00 every Medical morning Branch and evening. tamsulosin 2020-0 Yes [id number] .4mg Take 1 U nivers 0.4 mg 24 9-15 capsule by ity of hr capsule 00:00: mouth [place] 00 daily. Medical Branch furosemide 2020-0 Yes [id number] 80mg Take 1 U nivers (LASIX) 80 9-15 tablet by ity of mg tablet 00:00: mouth [place] 00 every Medical morning Branch and evening. tamsulosin 2020-0 Yes [id number] .4mg Take 1 U nivers 0.4 mg 24 9-15 capsule by ity of hr capsule 00:00: mouth [place] 00 daily. Medical Branch furosemide 2020-0 Yes [id number] 80mg Take 1 U nivers (LASIX) 80 9-15 tablet by ity of mg tablet 00:00: mouth [place] 00 every Medical morning Branch and evening. tamsulosin 2020-0 Yes [id number] .4mg Take 1 U nivers 0.4 mg 24 9-15 capsule by ity of hr capsule 00:00: mouth [place] 00 daily. Medical Branch furosemide 2020-0 Yes [id number] 80mg Take 1 U nivers (LASIX) 80 9-15 tablet by ity of mg tablet 00:00: mouth [place] 00 every Medical morning Branch and evening. tamsulosin 2020-0 Yes [id number] .4mg Take 1 U nivers 0.4 mg 24 9-15 capsule by ity of hr capsule 00:00: mouth [place] 00 daily. Medical Branch furosemide 2020-0 Yes [id number] 80mg Take 1 U nivers (LASIX) 80 9-15 tablet by ity of mg tablet 00:00: mouth [place] 00 every Medical morning Branch and evening. tamsulosin 2020-0 Yes [id number] .4mg Take 1 U nivers 0.4 mg 24 9-15 capsule by ity of hr capsule 00:00: mouth [place] 00 daily. Medical Branch furosemide 2020-0 Yes [id number] 80mg Take 1 U nivers (LASIX) 80 9-15 tablet by ity of mg tablet 00:00: mouth [place] 00 every Medical morning Branch and evening. tamsulosin 2020-0 Yes [id number] .4mg Take 1 U nivers 0.4 mg 24 9-15 capsule by ity of hr capsule 00:00: mouth [place] 00 daily. Medical Branch furosemide 2020-0 Yes [id number] 80mg Take 1 U nivers (LASIX) 80 9-15 tablet by ity of mg tablet 00:00: mouth [place] 00 every Medical morning Branch and evening. tamsulosin 2020-0 Yes [id number] .4mg Take 1 U nivers 0.4 mg [...] Dissolve l 13:33: in 8 oz of [place] 00 water or juice. (Same as: Miralax) Miralax 2020-0 No Notes: Memoria 8-13 Dissolve l 13:33: in 8 oz of [place] 00 water or juice. (Same as: Miralax) calcium 2020-0 Yes [id number] 1334mg Take 2 Un seun acetate 667 6-22 capsules ity of mg capsule 00:00: by mouth 3 [place] (three) Medical times Branch daily with meals. calcium 2020-0 Yes [id number] 1334mg Take 2 Un seun acetate 667 6-22 capsules ity of mg capsule 00:00: by mouth 3 [place] (three) Medical times Branch daily with meals. calcium 2020-0 Yes [id number] 1334mg Take 2 Un seun acetate 667 6-22 capsules ity of mg capsule 00:00: by mouth 3 [place] (three) Medical times Branch daily with meals. calcium 2020-0 Yes [id number] 1334mg Take 2 Un seun acetate 667 6-22 capsules ity of mg capsule 00:00: by mouth 3 [place] (three) Medical times Branch daily with meals. calcium 2020-0 Yes [id number] 1334mg Take 2 Un seun acetate 667 6-22 capsules ity of mg capsule 00:00: by mouth 3 [place] (three) Medical times Branch daily with meals. calcium 2020-0 Yes [id number] 1334mg Take 2 Un seun acetate 667 6-22 capsules ity of mg capsule 00:00: by mouth 3 [place] (three) Medical times Branch daily with meals. calcium 2020-0 Yes [id number] 1334mg Take 2 Un seun acetate 667 6-22 capsules ity of mg capsule 00:00: by mouth 3 [place] (three) Medical times Branch daily with meals. calcium 2020-0 Yes [id number] 1334mg Take 2 Un seun acetate 667 6-22 capsules ity of mg capsule 00:00: by mouth 3 [place] (three) Medical times Branch daily with meals. calcium 2020-0 Yes [id number] 1334mg Take 2 Un seun acetate 667 6-22 capsules ity of mg capsule 00:00: by mouth 3 [place] (three) Medical times Branch daily with meals. calcium 2020-0 Yes [id number] 1334mg Take 2 Un seun acetate 667 6-22 capsules ity of mg capsule 00:00: by mouth 3 [place] (three) Medical times Branch daily with meals. calcium 2020-0 Yes [id number] 1334mg Take 2 Un seun acetate 667 6-22 capsules ity of mg capsule 00:00: by mouth 3 [place] (three) Medical times Branch daily with meals. calcium 2020-0 Yes [id number] 1334mg Take 2 Un seun acetate 667 6-22 capsules ity of mg capsule 00:00: by mouth 3 [place] (three) Medical times Branch daily with meals. calcium 2020-0 Yes [id number] 1334mg Take 2 Un seun acetate 667 6-22 capsules ity of mg capsule 00:00: by mouth 3 [place] (three) Medical times Branch daily with meals. calcium 2020-0 Yes [id number] 1334mg Take 2 Un seun acetate 667 6-22 capsules ity of mg capsule 00:00: by mouth 3 [place] (three) Medical times Branch daily with meals. calcium 2020-0 Yes [id number] 1334mg Take 2 Un seun acetate 667 6-22 capsules ity of mg capsule 00:00: by mouth 3 [place] (three) Medical times Branch daily with meals. calcium 2020-0 Yes [id number] 1334mg Take 2 Un seun acetate 667 6-22 capsules ity of mg capsule 00:00: by mouth 3 [place] 00 (three) Medical times Branch daily with meals. calcium 2020-0 Yes [id number] 1334mg Take 2 Un seun acetate 667 6-22 capsules ity of mg capsule 00:00: by mouth 3 [place] (three) Medical times Branch daily with meals. calcium 2020-0 Yes [id number] 1334mg Take 2 Un seun acetate 667 [...] Memoria 6-15 Route: l 13:48: IVP, Drug [place] 00 form: INJ, ONCE, Dosing Weight 104, [...] Memoria 6-15 Route: l 13:48: IVP, ONCE, [place] 00 Dosing Weight 104, kg, Priority: STAT, [...] TAB, 5 MG Oral Dosing Tablet Weight [[place] 104, kg, 5/325] ONCE, STAT, Start date: 03/23/20 5:53:00 CDT, Stop date: 03/23/20 5:53:00 CDT Acetaminoph 2019-0 No 1 tab, Kojo lynn en 325 MG / 6-15 Route: PO, l Hydrocodone 10:53: Drug Form: [place] Bitartrate 00 TAB, 5 MG Oral Dosing Tablet Weight [[place] 104, kg, 5/325] ONCE, STAT, Start date: 03/23/20 5:53:00 CDT, Stop date: 03/23/20 5:53:00 CDT Acetaminoph 2019-0 No 1 tab, Kojo lynn en 325 MG / -15 Route: PO, l Hydrocodone 10:53: Drug Form: [place] Bitartrate 00 TAB, 5 MG Oral Dosing Tablet Weight [[place] 104, kg, 5/325] ONCE, STAT, Start date: 03/23/20 5:53:00 CDT, Stop date: 03/23/20 5:53:00 CDT Acetaminoph 2019-0 No Notes: Do M emoria en 325 MG / 6-15 not exceed l Hydrocodone 09:02: 4gm/day of [place] Bitartrate 00 acetaminop 10 MG Oral hen. (Same Tablet as: [place] [[place] 325/10) 10/325] Acetaminoph 2019-0 No Notes: Do M emoria en 325 MG / 6-15 not exceed l Hydrocodone 09:02: 4gm/day of [place] Bitartrate 00 acetaminop 10 MG Oral hen. (Same Tablet as: [place] [[place] 325/10) ] Acetaminoph 2020-0 No Notes: Do M emoria en 325 MG / 6-15 not exceed l Hydrocodone 09:02: 4gm/day of [place] Bitartrate 00 acetaminop 10 MG Oral hen. (Same Tablet as: [place] [[place] 325/10) 10325] Sodium 2020-0 No 250 mL, Memoria Chloride 6-15 Rate: To l 0.9% 06:23: prime line [place] (titrate) 00 and flush 250 mL remaining [...] Refill(s) Tablet [Tylenol with Codeine #3] Acetaminoph 2019-0 Yes 1 tab, PO, Memoria en 300 MG / 02-02 Q6H, X 3 l Codeine 22:40: day, # 12 [place] nn Phosphate 00 tab, 0 30 MG Oral Refill(s) Tablet [Tylenol with Codeine #3] Dilaudid 2019-0 No Notes: Memoria 02-02 Same [...] [facility]oria 02-02 (Same as: l 20:19: Zofran) [place] 00 MEDICATION WASTE Product Size: 4 mg Product Wasted: ___ mg Zofran No Notes: [facility]oria 02-02 (Same as: l 20:19: Zofran) [place] 00 MEDICATION WASTE Product Size: 4 mg Product Wasted: ___ mg Morphine No Notes: Memoria 02-02 (Same l 20:18: as:MORPhin [place] 00 e Sulfate) Morphine No Notes: [facility]oria 02-02 (Same l 20:18: as:MORPhin [place] 00 e Sulfate) Morphine No Notes: Memoria 02-02 (Same l 20:18: as:MORPhin [place] 00 e Sulfate) Acetaminoph Yes 1-2 tab, Me moria en 325 MG / 1-28 PO, Q4-6H, l Hydrocodone 20:46: PRN Pain, H [place] Bitartrate 00 X 5 day, # 10 MG Oral 20 tab, 0 Tablet Refill(s), [[place] [facility]: ] [facility] Acetaminoph Yes 1-2 tab, Me moria en 325 MG / -28 PO, Q4-6H, l Hydrocodone 20:46: PRN Pain, H ermann Bitartrate 00 X 5 day, # 10 MG Oral 20 tab, 0 Tablet Refill(s), [[place] [facility]: ] [facility] Acetaminoph Yes 1-2 tab, Me moria en 325 MG / 1-28 PO, Q4-6H, l Hydrocodone 20:46: PRN Pain, H ermann Bitartrate 00 X 5 day, # 10 MG Oral 20 tab, 0 Tablet Refill(s), [[place] [facility]: ] [facility] vancomycin No 2001 mg: Me moria 11-04 infuse l 19:00: over 2.5 [place] 00 hours For adult patients only: Round to nearest 250 mg per Medical Staff approval MEDICATION WASTE Product Size: 1000 mg Product Wasted: ___ mg Amlodipine No 1 cap, Memor ia 10 MG / 11-04 Route: PO, l Benazepril 19:00: Drug Form: H ermann hydrochlori 00 CAP, de 20 MG Dosing Oral Weight Capsule 99.091, kg, TID, Start date: 11/04/19 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, Duration: 30 day, Stop date: 12/04/19 9:00:00 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 amLODIPine 2020-0 No Notes: Memor ia - (Same as: l 19:00: Norvasc) [place] 00 lisinopril 2020-0 No Notes: Memor ia 11-04 (Same as: l 19:00: Prinivil, [place] 00 Zestril) vancomycin 2020-0 No 2000 mg: Me moria 1- infuse l 19:00: over 2.5 [place] 00 [...] 99.091, kg, TID, 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 date: 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/19 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, 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: 30 day, Stop date: 12/04/19 9:00:00 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 amLODIPine 2020-0 No Notes: Memor ia 11-04 (Same as: l 19:00: Norvasc) [place] 00 lisinopril 2020-0 No Notes: Memor ia 11-04 (Same as: l 19:00: Prinivil, [place] 00 Zestril) vancomycin 2020-0 No 2000 mg: Me moria 1-27 infuse l 19:00: over 2.5 [place] 00 hours For adult patients only: Round to nearest 250 mg per Medical Staff approval MEDICATION WASTE Product Size: 1000 mg Product Wasted: ___ mg Amlodipine 2020-0 No 1 cap, Memor ia 10 MG / - Route: PO, l Benazepril 19:00: Drug Form: H ermann hydrochlori 00 CAP, de 20 MG Dosing Oral Weight Capsule 99.091, kg, TID, 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 Allow about 2 minutes for the tablets to disintegra te. Stir before giving to prepare slurry and administer . Please exclude Patient s with feeding tube less than 14 [place] (Dobhoff, J-tube etc) and pediatric and patients. Potassium 2020-0 No Notes: Memori a Chloride 1-27 (Same as: l 16:23: K-Dur 20) [place] 00 "Do Not Crush" Give with food and full glass of water For patients unable to swallow tablet, dissolve in one half glass of water. Allow about 2 minutes for the tablets to disintegra te. Stir before giving to prepare slurry and administer . Please exclude Patient s with feeding tube less than 14 [place] (Dobhoff, J-tube etc) and pediatric and patients. Potassium 2020-0 No Notes: Memori a Chloride 1-27 (Same as: l 16:23: K-Dur 20) [place] 00 "Do Not Crush" Give with food and full glass of water For patients unable to swallow tablet, dissolve in one half glass of water. Allow about 2 minutes for the tablets to disintegra te. Stir before giving to prepare slurry and administer . Please exclude Patient s with feeding tube less than 14 [place] (Dobhoff, J-tube etc) and pediatric and patients. epoetin 2020-0 No Notes: Memoria franca 11-04 (Same as: l 15:00: Procrit) [place] 00 epoetin [place] 96334 unit/1 ml VL. For dialysis use only. (Procrit) WASTE: F/P - Red; E -Red MEDICATION WASTE Product Size: 99555 unit Product Wasted: ___ unit epoetin 2020-0 No Notes: Memoria franca 11-04 (Same as: l 15:00: Procrit) [place] 00 epoetin [place] 18780 unit/1 ml VL. For dialysis use only. (Procrit) WASTE: F/P - Red; E -Red MEDICATION WASTE Product Size: 28440 unit Product Wasted: ___ unit epoetin 2020-0 No Notes: Memoria franca 11-04 (Same as: l 15:00: Procrit) [place] 00 epoetin [place] 77510 unit/1 ml VL. For dialysis use only. (Procrit) WASTE: F/P - Red; E -Red MEDICATION WASTE Product Size: 35136 unit Product Wasted: ___ unit Lisinopril 2019-0 No Notes: Memor ia 11-04 (Same as: l 14:47: Prinivil, [place] 00 Zestril) Lisinopril 2019-0 No Notes: Memor ia 11-04 (Same as: l 14:47: Prinivil, [place] 00 Zestril) Lisinopril 2019-0 No Notes: Memor ia - (Same as: l 14:47: Prinivil, [place] 00 Zestril) Vancomycin 2019-0 No 2000 mg: Me moria 11-04 infuse l 14:40: over 2.5 [place] 00 hours For adult patients only: Round to nearest 250 mg per Medical Staff approval MEDICATION WASTE Product Size: 1000 mg Product Wasted: ___ mg Vancomycin 2019-0 No 2000 mg: Me moria 1-27 infuse l 14:40: over 2.5 [place] 00 hours For adult patients only: Round to nearest 250 mg per Medical Staff approval MEDICATION WASTE Product Size: 1000 mg Product Wasted: ___ mg Vancomycin 2019- No 2000 mg: Me moria 1-27 infuse l 14:40: over 2.5 [place] 00 hours For adult patients only: Round to nearest 250 mg per Medical Staff approval MEDICATION WASTE Product Size: 1000 mg Product Wasted: ___ mg Lasix No Notes: Memoria 1-26 (Same as: l 23:00: Lasix) May [place] 00 cause GI upset. Give with food or milk. Lasix No Notes: Memoria 1-26 (Same as: l 23:00: Lasix) May [place] 00 cause GI upset. Give with food or milk. Lasix No Notes: Memoria 1-26 (Same as: l 23:00: Lasix) May [place] [...] Potassium 2019-0 No Notes: Memori a Chloride 1-26 (Same as: l 15:32: K-Dur 20) [place] 00 "Do Not Crush" Give with food and full glass of water For patients unable to swallow tablet, dissolve in one half glass of water. Allow about 2 minutes for the tablets to disintegra te. Stir before giving to prepare slurry and administer . Please exclude Patient s with feeding tube less than 14 [place] (Dobhoff, J-tube etc) and pediatric and patients. Epogen 0 No Notes: Memoria 11-03 (Same as: l 15:32: Procrit) [place] 00 epoetin [place] 10749 unit/1 ml VL. For dialysis use only. (Procrit) WASTE: F/P - Red; E -Red MEDICATION WASTE Product Size: 09588 unit Product Wasted: ___ unit Potassium 0 No Notes: Memori a Chloride 11-03 (Same as: l 15:32: K-Dur 20) [place] 00 "Do Not Crush" Give with food and full glass of water For patients unable to swallow tablet, dissolve in one half glass of water. Allow about 2 minutes for the tablets to disintegra te. Stir before giving to prepare slurry and administer . Please exclude Patient s with feeding tube less than 14 [place] (Dobhoff, J-tube etc) and pediatric and patients. Epogen No Notes: Memoria 11-03 (Same as: l 15:32: Procrit) [place] 00 epoetin [place] 79934 unit/1 ml VL. For dialysis use only. (Procrit) WASTE: F/P - Red; E -Red MEDICATION WASTE Product Size: 09399 unit Product Wasted: ___ unit Potassium 2019-0 No Notes: Memori a Chloride 11-03 (Same [...] s with feeding tube less than 14 [place] (Dobhoff, J-tube etc) and pediatric and patients. Epogen No Notes: Memoria 11-03 (Same as: l 15:32: Procrit) [place] 00 epoetin [place] 95095 unit/1 ml VL. For dialysis use only. (Procrit) WASTE: F/P - Red; E -Red MEDICATION WASTE Product Size: 09412 unit Product Wasted: ___ unit Dilaudid 2019-0 No Notes: Memoria 11-02 Same as: l 18:03: Dilaudid [place] 00 Dilaudid 2019-0 No Notes: [facility]oria 1-25 Same as: l 18:03: Dilaudid [place] 00 Dilaudid 0 No Notes: Memoria 1-25 Same as: l 18:03: Dilaudid [place] 00 heparin 2019-0 No 10,000 Memoria 1-25 unit, 10 l 02:00: mL, Route: [place] 00 DIALYSIS, Drug form: INJ, ONCALL, Dosing Weight 99.091, kg, Start date: 11/01/19 20:00:00 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, Duration: 1 doses or times, 0 heparin 2019-0 No 10,000 Memoria 1-25 unit, 10 l 02:00: mL, Route: [place] 00 DIALYSIS, Drug form: INJ, ONCALL, Dosing Weight 99.091, kg, Start date: 11/01/19 20:00:00 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, Duration: 1 doses or times, 0 heparin 2019-0 No 10,000 Memoria 1-25 unit, 10 l 02:00: mL, Route: [place] DIALYSIS, Drug form: INJ, ONCALL, Dosing Weight 99.091, kg, Start date: 11/01/19 20:00:00 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, Duration: 1 doses or times, 0 [...] s with feeding tube less than 14 [place] (Dobhoff, J-tube etc) and pediatric and patients. potassium 2020-0 No Notes: Memori a chloride 1-24 (Same as: l 19:51: K-Dur 20) [place] 00 "Do Not Crush" Give with food and full glass of water For patients unable to swallow tablet, dissolve in one half glass of water. Allow about 2 minutes for the tablets to disintegra te. Stir before giving to prepare slurry and administer . Please exclude Patient s with feeding tube less than 14 [place] (Dobhoff, J-tube etc) and pediatric and patients. [...] s with feeding tube less than 14 [place] (Dobhoff, J-tube etc) and pediatric and patients. Dilaudid 2020-0 No Notes: Memoria 1-24 Same as: l 18:47: Dilaudid [place] 00 Dilaudid 2020-0 No Notes: [facility]oria 1-24 Same as: l 18:47: Dilaudid [place] 00 Dilaudid 2020-0 No Notes: [facility]oria 1-24 Same as: l 18:47: Dilaudid [place] 00 Potassium 2020-0 No Notes: Memori a [...] s with feeding tube less than 14 [place] (Dobhoff, J-tube etc) and pediatric and patients. Potassium 2020-0 No Notes: Memori a Chloride 1-24 (Same as: l 16:00: K-Dur 20) [place] 00 "Do Not Crush" Give with food and full glass of water For patients unable to swallow tablet, dissolve in one half glass of water. Allow about 2 minutes for the tablets to disintegra te. Stir before giving to prepare slurry and administer . Please exclude Patient s with feeding tube less than 14 [place] (Dobhoff, J-tube etc) and pediatric and patients. [...] s with feeding tube less than 14 [place] (Dobhoff, J-tube etc) and pediatric and patients. heparin 2020-0 No 10,000 Memoria 1-24 unit, 10 l 01:00: mL, Route: [place] 00 DIALYSIS, Drug form: INJ, ONCALL, Dosing Weight 99.091, kg, Start date: 10/31/19 19:00:00 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, Duration: 1 doses or times, 0 heparin 2020-0 No 10,000 Memoria 1-24 unit, 10 l 01:00: mL, Route: [place] 00 DIALYSIS, Drug form: INJ, ONCALL, Dosing Weight 99.091, kg, Start date: 10/31/19 19:00:00 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, Duration: 1 doses or times, 0 heparin 2020-0 No 10,000 Memoria 1-24 unit, 10 l 01:00: mL, Route: [place] 00 DIALYSIS, Drug form: INJ, ONCALL, Dosing Weight 99.091, kg, Start date: 10/31/19 19:00:00 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, Duration: 1 doses or times, 0 Albuterol 2020-0 No Notes: Memori a 0.833 MG/ML -23 (Same as: l / 15:09: Duoneb) [place] Ipratropium 00 [place] 0.167 MG/ML Inhalant Solution [DuoNeb] Albuterol 2020-0 No Notes: Memori a 0.833 MG/ML -23 (Same as: l / 15:09: Duoneb) [place] Ipratropium 00 [place] 0.167 MG/ML Inhalant Solution [DuoNeb] Albuterol 2019-0 No Notes: Memori a 0.833 MG/ML 1-23 (Same as: 15:09: Duoneb) [place] Ipratropium 00 [place] 0.167 MG/ML Inhalant Solution [DuoNeb] Potassium 2020-0 [...] s with feeding tube less than 14 [place] (Dobhoff, J-tube etc) and pediatric and patients. Potassium 2020-0 No Notes: Memori a Chloride 1-23 (Same as: l 11:58: K-Dur 20) [place] 00 "Do Not Crush" Give with food and full glass of water For patients unable to swallow tablet, dissolve in one half glass of water. Allow about 2 minutes for the tablets to disintegra te. Stir before giving to prepare slurry and administer . Please exclude Patient s with feeding tube less than 14 [place] (Dobhoff, J-tube etc) and pediatric and patients. Potassium 2020-0 No Notes: Memori a Chloride 1-23 (Same as: l 11:58: K-Dur 20) [place] 00 "Do Not Crush" Give with food and full glass of water For patients unable to swallow tablet, dissolve in one half glass of water. Allow about 2 minutes for the tablets to disintegra te. Stir before giving to prepare slurry and administer . Please exclude Patient s with feeding tube less than 14 [place] (Dobhoff, J-tube etc) and pediatric and patients. heparin 2020-0 No 10,000 Memoria 1-23 unit, 10 l 05:00: mL, Route: DIALYSIS, Drug form: INJ, ONCALL, Dosing Weight 99.091, kg, Start date: 10/30/19 23:00:00 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, Duration: 1 doses or times, 0 heparin 2020-0 No 10,000 Memoria 1-23 unit, 10 l 05:00: mL, Route: DIALYSIS, Drug form: INJ, ONCALL, Dosing Weight 99.091, kg, Start date: 10/30/19 23:00:00 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, Duration: 1 doses or times, 0 heparin 2020-0 No 10,000 Memoria 1-23 unit, 10 l 05:00: mL, Route: [place] DIALYSIS, Drug form: INJ, ONCALL, Dosing Weight 99.091, kg, Start date: 10/30/19 23:00:00 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, Duration: 1 doses or times, 0 Potassium 2020-0 No Notes: Memori a Chloride 1-23 (Same as: l 04:05: K-Dur 20) [place] 00 "Do Not Crush" Give with food and full glass of water For patients unable to swallow tablet, dissolve in one half glass of water. Allow about 2 minutes for the tablets to disintegra te. Stir before giving to prepare slurry and administer . Please exclude Patient s with feeding tube less than 14 [place] (Dobhoff, J-tube etc) and pediatric and patients. Potassium 2020-0 No Notes: Memori a Chloride 1-23 (Same as: l 04:05: K-Dur 20) [place] 00 "Do Not Crush" Give with food and full glass of water For patients unable to swallow tablet, dissolve in one half glass of water. Allow about 2 minutes for the tablets to disintegra te. Stir before giving to prepare slurry and administer . Please exclude Patient s with feeding tube less than 14 [place] (Dobhoff, J-tube etc) and pediatric and patients. [...] s with feeding tube less than 14 [place] (Dobhoff, J-tube etc) and pediatric and patients. Tylenol 2020-0 No Notes: Do Memor ia 1-22 not exceed l 19:42: 4 gm/day. (Same as: Tylenol) Tylenol 2020-0 No Notes: Do Memor ia 1-22 not exceed l 19:42: 4 gm/day. (Same as: Tylenol) Tylenol 2020-0 No Notes: Do Memor ia 1-22 not exceed l 19:42: 4 gm/day. [place] 00 (Same as: Tylenol) Roxicodone No Notes: Memor ia 10-30 (Same as: l 19:41: Roxicodone [place] 00 ) Roxicodone No Notes: Memor ia 10-30 (Same as: l 19:41: Roxicodone [place] 00 ) Roxicodone No Notes: Memor ia - (Same as: l 19:41: Roxicodone [place] 00 ) Acetaminoph No 1 tab, Kojo lynn en 325 MG / 10-30 Route: PO, l Oxycodone 19:20: Drug Form: Jarad rmann Hydrochlori 00 TAB, de 5 MG Dosing Oral Tablet Weight [Percocet 99.091, 5/325] kg, Q4H, PRN Pain Score 4-6, Start date: 10/30/19 13:20:00 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, Duration: 30 day, Stop date: 11/29/19 13:19:00 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 Acetaminoph 0 No 1 tab, Kojo lynn en 325 MG / 10-30 Route: PO, l Oxycodone 19:20: Drug Form: Jarad rmann Hydrochlori 00 TAB, de 5 MG Dosing Oral Tablet Weight [Percocet 99.091, 5/325] kg, Q4H, PRN Pain Score 4-6, Start date: 10/30/19 13:20:00 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, Duration: 30 day, Stop date: 11/29/19 13:19:00 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 Acetaminoph 0 No 1 tab, Kojo lynn en 325 MG / 10-30 Route: PO, l Oxycodone 19:20: Drug Form: Jarad rmann Hydrochlori 00 TAB, de 5 MG Dosing Oral Tablet Weight [Percocet 99.091, 5/325] kg, Q4H, PRN Pain Score 4-6, Start date: 10/30/19 13:20:00 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, Duration: 30 day, Stop date: 11/29/19 13:19:00 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 vancomycin 2000 mg: Me moria + Sodium 22 infuse l Chloride 18:00: over 2.5 [place] nn 0.9% IV 250 00 hours For mL adult patients only: Round to nearest 250 mg per Medical Staff approval MEDICATION WASTE Product Size: 1000 mg Product Wasted: ___ mg vancomycin 2020-0 No 2000 mg: Me moria + Sodium -22 infuse l Chloride 18:00: over 2.5 [place] nn 0.9% IV 250 00 hours For mL adult patients only: Round to nearest 250 mg per Medical Staff approval MEDICATION WASTE Product Size: 1000 mg Product Wasted: ___ mg vancomycin 2020-0 No 2000 mg: Me moria + Sodium 22 infuse l Chloride 18:00: over 2.5 [place] nn 0.9% IV 250 00 hours For mL adult patients only: Round to nearest 250 mg per Medical Staff approval MEDICATION WASTE Product Size: 1000 mg Product Wasted: ___ mg cefepime 2020-0 No Notes: Memoria 10-30 (Same As: l 16:00: Maxipime) [place] 00 MEDICATION WASTE Product Size: 1000 mg Product Wasted: ___ mg Vancomycin 2020-0 No 2000 mg: Me moria 10-30 infuse l 16:00: over 2.5 [place] 00 hours For adult patients only: Round to nearest 250 mg per Medical Staff approval MEDICATION WASTE Product Size: 1000 mg Product Wasted: ___ mg cefepime 2020-0 No Notes: Memoria 10-30 (Same As: l 16:00: Maxipime) [place] 00 MEDICATION WASTE Product Size: 1000 mg Product Wasted: ___ mg Vancomycin 2020-0 No 2000 mg: Me moria 10-30 infuse l 16:00: over 2.5 [place] 00 hours For adult patients only: Round to nearest 250 mg per Medical Staff approval MEDICATION WASTE Product Size: 1000 mg Product Wasted: ___ mg cefepime 2020-0 No Notes: Memoria 10-30 (Same As: l 16:00: Maxipime) [place] 00 MEDICATION WASTE Product Size: 1000 mg [...] 2020-0 No Fauzia-Conor Mem oria oral tablet 1-22 oral l 15:00: tablet, 1 [place] 00 tab, Route: PO, Daily, 10/30/19 9:00:00 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, Duration: 30 day, Stop date: 11/28/19 9:00:00 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 Nephro-Conor 2020-0 No Notes: Kojo lynn Rx 1-22 (Same as: l 15:00: Nephro-Vit [place] 00 e Rx and Diatx) Give with food. NIFEdipine 2019-0 No Notes: Memor ia 90 mg oral 1-22 (Same as: l tablet, 15:00: Adalat [place] extended 00 CC,Procard release ia XL) "Do Not Crush" "Avoid grapefruit and grapefruit juice" Fauzia-Conor 2020-0 No Fauzia-Conor Mem oria oral tablet 1-22 oral l 15:00: tablet, 1 [place] 00 tab, Route: PO, Daily, 10/30/19 9:00:00 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, Duration: 30 day, Stop date: 11/28/19 9:00:00 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 Nephro-Conor 2020-0 No Notes: Kojo lynn Rx 1-22 (Same as: l 15:00: Nephro-Vit [place] 00 e Rx and Diatx) Give with food. NIFEdipine 2019-0 No Notes: Memor ia 90 mg oral 1-22 (Same as: l tablet, 15:00: Adalat [place] extended 00 CC,Procard release ia XL) "Do Not Crush" "Avoid grapefruit and grapefruit juice" Fauzia-Conor 2020-0 No Fauzia-Conor Mem oria oral tablet 1-22 oral l 15:00: tablet, 1 [place] 00 tab, Route: PO, Daily, 10/30/19 9:00:00 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, Duration: 30 day, Stop date: 11/28/19 9:00:00 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 Nephro-Conor 2020-0 No Notes: Kojo lynn Rx - (Same as: l 15:00: Nephro-Vit [place] 00 e Rx and Diatx) Give with food. Epoetin 2019-0 No Notes: Memoria Franca 1-22 (Same as: l 14:39: Procrit) [place] 00 epoetin [place] 88524 unit/1 ml VL. For dialysis use only. (Procrit) WASTE: F/P - Red; E -Red MEDICATION WASTE Product Size: 03080 unit Product Wasted: ___ unit Epoetin 2020-0 No Notes: Memoria Franca 1-22 (Same as: l 14:39: Procrit) [place] 00 epoetin [place] 68331 unit/1 ml VL. For dialysis use only. (Procrit) WASTE: F/P - Red; E -Red MEDICATION WASTE Product Size: 15482 unit Product Wasted: ___ unit Epoetin 2020-0 No Notes: Memoria Franca - (Same as: l 14:39: Procrit) [place] 00 epoetin [place] 69705 unit/1 ml VL. For dialysis use only. (Procrit) WASTE: F/P - Red; E -Red MEDICATION WASTE Product Size: 57338 unit Product Wasted: ___ unit Potassium 2020-0 [...] s with feeding tube less than 14 [place] (Dobhoff, J-tube etc) and pediatric and patients. Potassium 2020-0 No Notes: Memori a Chloride 1-22 (Same as: l 14:38: K-Dur 20) [place] 00 "Do Not Crush" Give with food and full glass of water For patients unable to swallow tablet, dissolve in one half glass of water. Allow about 2 minutes for the tablets to disintegra te. Stir before giving to prepare slurry and administer . Please exclude Patient s with feeding tube less than 14 [place] (Dobhoff, J-tube etc) and pediatric and patients. Potassium 2020-0 No Notes: Memori a Chloride 1-22 (Same as: l 14:38: K-Dur 20) [place] 00 "Do Not Crush" Give with food and full glass of water For patients unable to swallow tablet, dissolve in one half glass of water. Allow about 2 minutes for the tablets to disintegra te. Stir before giving to prepare slurry and administer . Please exclude Patient s with feeding tube less than 14 [place] (Dobhoff, J-tube etc) and pediatric and patients. carvedilol 2020-0 No Notes: Memor ia 1-22 Give with l 03:00: food. [place] 00 (Same As: Coreg) tamsulosin 2020-0 No Notes: Memor ia 1-22 (Same As: l 03:00: Flomax) [place] 00 "Do Not Crush" carvedilol 2020-0 No Notes: Memor ia 1-22 Give with l 03:00: food. [place] 00 (Same As: Coreg) tamsulosin 2020-0 No Notes: Memor ia 1-22 (Same As: l 03:00: Flomax) [place] 00 "Do Not Crush" carvedilol 2020-0 No Notes: Memor ia 1-22 Give with l 03:00: food. [place] 00 (Same As: Coreg) tamsulosin 2020-0 No Notes: Memor ia 1-22 (Same As: l 03:00: Flomax) [place] 00 "Do Not Crush" Lactulose 2020-0 No Notes: Memori a 667 MG/ML -22 (Same l Oral 00:36: as:Chronul [place] Solution 00 ac) Lactulose 2020-0 No Notes: Memori a 1-22 Lactulose l 00:36: 300ml, [place] 00 Water for Irrigation 700ml - total volume = 1000ml Lactulose 2020-0 No Notes: Memori a 667 MG/ML 1-22 (Same l Oral 00:36: as:Chronul [place] Solution 00 ac) Lactulose 2020-0 No Notes: Memori a 1-22 Lactulose l 00:36: 300ml, [place] 00 Water for Irrigation 700ml - total volume = 1000ml Lactulose 2020-0 No Notes: Memori a 667 MG/ML 10-30 (Same l Oral 00:36: as:Chronul [place] Solution 00 ac) Lactulose No Notes: Memori a 10-30 Lactulose l 00:36: 300ml, [place] 00 Water for Irrigation 700ml - total volume = 1000ml tizanidine No Notes: Memor ia - (Same As: l 22:22: Zanaflex) tizanidine No Notes: Memor ia - (Same As: l 22:22: Zanaflex) tizanidine No Notes: Memor ia - (Same As: l 22:22: Zanaflex) Hydralazine No Notes: Kojo lynn Hydrochlori - (Same as: l de 25 MG 22:00: Apresoline Her meeks Oral Tablet 00 ) May interfere w/enteral feedings Take With Food. Hydralazine No Notes: Kojo lynn Hydrochlori - [...] TID, 0 [place] Capsule 00 Refill(s) calcium 0 Yes 2,001 mg = Kojo lynn acetate 667 1-21 3 cap, PO, l MG Oral 21:57: TID, 0 [place] Capsule 00 Refill(s) calcium Yes 2,001 mg = Kojo lynn acetate 667 1-21 3 cap, PO, l MG Oral 21:57: TID, 0 [place] Capsule 00 Refill(s) Diazepam No Notes: Memoria 1-21 (Same as: l 21:25: Valium) [place] Diazepam 2019- No Notes: Memoria 1-21 (Same as: l 21:25: Valium) [place] Diazepam 0 No Notes: Memoria 1-21 (Same as: l 21:25: Valium) [place] 00 Hydralazine No Notes: Kojo lynn 1-21 (Same as: l 18:50: Apresoline ) Push over 5 minutes Hydralazine No Notes: Kojo lynn 1-21 (Same as: l 18:50: Apresoline ) Push over 5 minutes Hydralazine No Notes: Kojo lynn 1-21 (Same as: l 18:50: Apresoline [place] 00 ) Push over 5 minutes acetaminoph No Notes: Do M emoria en-codeine - not exceed l #3 18:49: 4gm/day of acetaminop hen. (Same as: Tylenol with Codeine # 3) acetaminoph No Notes: Do M emoria en-codeine - not exceed l #3 18:49: 4gm/day of [place] 00 acetaminop hen. (Same as: Tylenol with Codeine # 3) acetaminoph No Notes: Do M emoria en-codeine -21 not exceed l #3 18:49: 4gm/day of [place] 00 acetaminop hen. (Same as: Tylenol with Codeine # 3) Lasix No Notes: Memoria 1-21 (Same as: l 15:00: Lasix) [place] MEDICATION WASTE Product Size: 40 mg Product Wasted: ___ mg Docusate No Notes: Memoria - (Same as: l 15:00: Colace) [place] (Do Not Crush) Lasix No Notes: Memoria - (Same as: l 15:00: Lasix) [place] MEDICATION WASTE Product Size: 40 mg Product Wasted: ___ mg Docusate No Notes: Memoria 1- (Same as: l 15:00: Colace) [place] (Do Not Crush) Lasix No Notes: Memoria - (Same as: l 15:00: Lasix) [place] MEDICATION WASTE Product Size: 40 mg Product Wasted: ___ mg Docusate 2019- No Notes: Memoria 1-21 (Same as: l 15:00: Colace) [place] 00 (Do Not Crush) Potassium No Notes: Memori a Chloride 1-21 (Same as: l 14:55: K-Dur 20) [place] 00 "Do Not Crush" Give with food and full glass of water For patients unable to swallow tablet, dissolve in one half glass of water. Allow about 2 minutes for the tablets to disintegra te. Stir before giving to prepare slurry and administer . Please exclude Patient s with feeding tube less than 14 [place] (Dobhoff, J-tube etc) and pediatric and patients. Magnesium 2019- No Notes: Memori a Sulfate 1-21 WASTE: F/P l 14:55: - Sink; E - Municipal Trash Bin Potassium 2019-0 No Notes: Memori a Chloride 1-21 (Same as: l 14:55: K-Dur 20) [place] 00 "Do Not Crush" Give with food and full glass of water For patients unable to swallow tablet, dissolve in one half glass of water. Allow about 2 minutes for the tablets to disintegra te. Stir before giving to prepare slurry and administer . Please exclude Patient s with feeding tube less than 14 [place] (Dobhoff, J-tube etc) and pediatric and patients. Magnesium 2019-0 No Notes: Memori a Sulfate 1-21 WASTE: F/P l 14:55: - Sink; E - Municipal Trash Bin Potassium 0 No Notes: Memori a Chloride 1-21 (Same as: l 14:55: K-Dur 20) [place] 00 "Do Not Crush" Give with food and full glass of water For patients unable to swallow tablet, dissolve in one half glass of water. Allow about 2 minutes for the tablets to disintegra te. Stir before giving to prepare slurry and administer . Please exclude Patient s with feeding tube less than 14 [place] (Dobhoff, J-tube etc) and pediatric and patients. Magnesium 2019-0 No Notes: Memori a Sulfate 1-21 WASTE: F/P l 14:55: - Sink; E - Municipal Trash Bin Diazepam 2019-0 Yes 10 mg, PO, Mem oria 1-21 PRN as l 08:31: needed for [place] anxiety, 0 Refill(s) Diazepam 2020-0 Yes 10 mg, PO, Mem oria - PRN as l 08:31: needed for [place] anxiety, 0 Refill(s) Diazepam 2020-0 Yes 10 mg, PO, Mem oria 10-29 PRN as l 08:31: needed for [place] anxiety, 0 Refill(s) zolpidem 10 2020-0 Yes 10 mg = 1 M emoria mg oral -21 tab, PO, l tablet 08:27: Bedtime, [place] 00 PRN as needed for insomnia, 0 Refill(s) zolpidem 10 2020-0 Yes 10 mg = 1 M emoria mg oral -21 tab, PO, l tablet 08:27: Bedtime, [place] 00 PRN as needed for insomnia, 0 Refill(s) zolpidem 10 2020-0 Yes 10 mg = 1 M emoria mg oral -21 tab, PO, l tablet 08:27: Bedtime, [place] 00 PRN as needed for insomnia, 0 Refill(s) Lasix 2020-0 No Notes: Memoria 10-29 (Same as: l 06:55: Lasix) [place] MEDICATION WASTE Product Size: 40 mg Product Wasted: ___ mg Lasix 2020-0 No Notes: Memoria 10-29 (Same as: l 06:55: Lasix) [place] 00 MEDICATION WASTE Product Size: 40 mg Product Wasted: ___ mg Lasix 2020-0 No Notes: Memoria 10-29 (Same as: l 06:55: Lasix) [place] 00 MEDICATION WASTE Product Size: 40 mg Product Wasted: ___ mg Dextrose 2020-0 No 12.5 gm, Memor ia 50% Syringe 10-29 25 mL, l (D50W) 06:50: Route: IVP, Drug Form: INJ, Dosing Weight 90.909, kg, PRN, PRN Blood Glucose Results, Start date: 10/29/19 0:50:00 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, Duration: 30 day, Stop date: 11/28/19 0:49:00 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, 0 Glucagon 2020-0 No 1 mg, Memoria 1-21 Route: IM, l 06:50: Drug form: [place] 00 PDR/INJ, PRN, Dosing Weight 90.909, kg, PRN Blood Glucose Results, Start date: 10/29/19 0:50:00 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, Duration: 30 day, Stop date: 11/28/19 0:49:00 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, 0 Ondansetron 2019-0 No Notes: Kojo lynn 10-29 (Same as: l 06:50: Zofran) [place] MEDICATION WASTE Product Size: 4 mg Product Wasted: ___ mg Melatonin 2019-0 No Notes: Memori a 10-29 (Same as: l 06:50: Melatonin) Acetaminoph No Notes: Do M emoria en 10-29 not exceed l 06:50: 4 gm/day. [place] 00 (Same as: Tylenol) Dextrose No 12.5 gm, Memor ia 50% Syringe 10-29 25 mL, l (D50W) 06:50: Route: [place] 00 IVP, Drug Form: INJ, Dosing Weight 90.909, kg, PRN, PRN Blood Glucose Results, Start date: 10/29/19 0:50:00 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, Duration: 30 day, Stop date: 11/28/19 0:49:00 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, 0 Glucagon 0 No 1 mg, Memoria 10-29 Route: IM, l 06:50: Drug form: [place] 00 PDR/INJ, PRN, Dosing Weight 90.909, kg, PRN Blood Glucose Results, Start date: 10/29/19 0:50:00 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, Duration: 30 day, Stop date: 11/28/19 0:49:00 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, 0 Ondansetron 2019-0 No Notes: Kojo lynn 10-29 (Same as: l 06:50: Zofran) [place] MEDICATION WASTE Product Size: 4 mg Product Wasted: ___ mg Melatonin 2019-0 No Notes: Memori a 10-29 (Same as: l 06:50: Melatonin) [place] 00 Acetaminoph 0 No Notes: Do M emoria en 10-29 not exceed l 06:50: 4 gm/day. [place] 00 (Same as: Tylenol) Dextrose 2019- No 12.5 gm, Memor ia 50% Syringe 10-29 25 mL, l (D50W) 06:50: Route: [place] IVP, Drug Form: INJ, Dosing Weight 90.909, kg, PRN, PRN Blood Glucose Results, Start date: 10/29/19 0:50:00 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, Duration: 30 day, Stop date: 11/28/19 0:49:00 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, 0 Glucagon No 1 mg, Memoria 10-29 Route: IM, l 06:50: Drug form: [place] PDR/INJ, PRN, Dosing Weight 90.909, kg, PRN Blood Glucose Results, Start date: 10/29/19 0:50:00 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, Duration: 30 day, Stop date: 11/28/19 0:49:00 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, 0 Ondansetron No Notes: Kojo lynn [...] l / 03:22: Duoneb) [place] Ipratropium 00 [place] 0.167 MG/ML Inhalant Solution [DuoNeb] Albuterol No Notes: SEE Me moria 0.83 MG/ML 10-29 RT l Inhalant 03:22: DOCUMENTAT Her meeks Solution 00 ION (Same as: Proventil) Albuterol No Notes: Memori a 0.833 MG/ML 10-29 (Same as: l / 03:22: Duoneb) [place] Ipratropium 00 [place] 0.167 MG/ML Inhalant Solution [DuoNeb] Albuterol No Notes: SEE Me moria 0.83 MG/ML 10-29 RT l Inhalant 03:22: DOCUMENTAT Her meeks Solution 00 ION (Same as: Proventil) Albuterol No Notes: Memori a 0.833 MG/ML 10-29 (Same as: l / 03:22: Duoneb) [place] Ipratropium 00 [place] 0.167 MG/ML Inhalant Solution [DuoNeb] Albuterol No Notes: SEE Me moria 0.83 MG/ML 10-29 RT l Inhalant 03:22: DOCUMENTAT Her meeks Solution 00 ION (Same as: Proventil) carvedilol 2018-10 Yes 12.5 mg = Me moria 12.5 mg -12 1 tab, PO, l oral tablet 17:56: Q12H, # 60 [place] 00 tab, 0 Refill(s), Pharmacy: [facility] Furosemide 2018-10 Yes 80 mg = 2 Me moria 40 MG Oral 1-12 tab, PO, l Tablet 17:56: TID, # 180 [place] nn 00 tab, 0 Refill(s), Pharmacy: [facility] Hydralazine 2018-10 Yes 50 mg = 2 M emoria Hydrochlori 1-12 tab, PO, l de 25 MG 17:56: Q8H, # 180 Her meeks Oral Tablet 00 tab, 0 Refill(s), Pharmacy: [facility] lisinopril 2018-10 Yes 40 mg = 1 Me moria 40 mg oral 1-12 tab, PO, l tablet 17:56: Daily, # [place] 00 30 tab, 0 Refill(s), Pharmacy: [facility] NIFEdipine 2018-10 Yes 90 mg = 1 Me moria 90 mg oral 1-12 tab, PO, l tablet, 17:56: Daily, # Rafael n extended 00 30 tab, 0 release Refill(s), Pharmacy: [facility] carvedilol 2018-10 Yes 12.5 mg = Me moria 12.5 mg 1-12 1 tab, PO, l oral tablet 17:56: Q12H, # 60 [place] 00 tab, 0 Refill(s), Pharmacy: [facility] Furosemide 2018-10 Yes 80 mg = 2 Me moria 40 MG Oral 1-12 tab, PO, l Tablet 17:56: TID, # 180 [place] nn 00 tab, 0 Refill(s), Pharmacy: [facility] Hydralazine 2018-10 Yes 50 mg = 2 M emoria Hydrochlori 1-12 tab, PO, l de 25 MG 17:56: Q8H, # 180 Her meeks Oral Tablet 00 tab, 0 Refill(s), Pharmacy: [facility] lisinopril 2018-10 Yes 40 mg = 1 Me moria 40 mg oral 1-12 tab, PO, l tablet 17:56: Daily, # [place] 00 30 tab, 0 Refill(s), Pharmacy: [facility] NIFEdipine 2018-10 Yes 90 mg = 1 Me moria 90 mg oral 1-12 tab, PO, l tablet, 17:56: Daily, # Rafael n extended 00 30 tab, 0 release Refill(s), Pharmacy: [facility] carvedilol 2018-10 Yes 12.5 mg = Me moria 12.5 mg 1-12 1 tab, PO, l oral tablet 17:56: Q12H, # 60 [place] 00 tab, 0 Refill(s), Pharmacy: [facility] Furosemide 2018-10 Yes 80 mg = 2 Me moria 40 MG Oral 1-12 tab, PO, l Tablet 17:56: TID, # 180 [place] nn 00 tab, 0 Refill(s), Pharmacy: [facility] Hydralazine 2018-10 Yes 50 mg = 2 M emoria Hydrochlori 1-12 tab, PO, l de 25 MG 17:56: Q8H, # 180 Her meeks Oral Tablet 00 tab, 0 Refill(s), Pharmacy: [facility] lisinopril 2018-10 Yes 40 mg = 1 Me moria 40 mg oral 1-12 tab, PO, l tablet 17:56: Daily, # [place] 00 30 tab, 0 Refill(s), Pharmacy: [facility] NIFEdipine 2018-10 Yes 90 mg = 1 Me moria 90 mg oral 1-12 tab, PO, l tablet, 17:56: Daily, # Rafael n extended 00 30 tab, 0 release Refill(s), Pharmacy: [facility] carvedilol 2018-10 No Notes: Memor ia 1-12 Give with l 03:00: food. [place] 00 (Same As: Coreg) carvedilol 2018-10 No [...] Weight 96.364, kg, Start date: 08/19/19 9:00:00 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, Duration: 30 day, Stop date: 09/17/19 9:00:00 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, 0 lisinopril 2018-10 No Notes: Memor ia -11 (Same as: l 15:00: Prinivil, [place] 00 Zestril) NIFEdipine 2018-10 No 90 mg, Memor ia 60 mg oral 11 Route: PO, l tablet, 15:00: Drug form: Herm dionne extended 00 ERTAB, release Daily, Dosing Weight 96.364, kg, Start date: 08/19/19 9:00:00 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, Duration: 30 day, Stop date: 09/17/19 9:00:00 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, 0 lisinopril 2018-10 No Notes: Memor ia -11 (Same as: l 15:00: Prinivil, [place] 00 Zestril) NIFEdipine 2018-10 No 90 mg, Memor ia 60 mg oral 10-19 Route: PO, l tablet, 15:00: Drug form: Herm dionne extended 00 ERTAB, release Daily, Dosing Weight 96.364, kg, Start date: 08/19/19 9:00:00 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, Duration: 30 day, Stop date: 09/17/19 9:00:00 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, 0 lisinopril 2018-10 No Notes: Memor ia 1-11 (Same as: l 15:00: Prinivil, [place] 00 Zestril) carvedilol 2018-10 No Notes: Memor [...] a 1-11 (Same As: l 00:45: Catapres) [place] 00 Clonidine 2018-10 No Notes: Memori a 1-11 (Same As: l 00:45: Catapres) [place] 00 Clonidine 2018-10 No Notes: Memori a [...] meeks Oral Tablet Hydralazine 2018-10 No Notes: Kojo lynn 1-10 [...] ia 1-10 (Same as: l 20:11: Prinivil, [place] 00 Zestril) Lisinopril 2018-10 No Notes: Memor [...] kg, Priority: NOW, Start date: 08/18/19 9:29:00 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, Duration: 1 doses or times, 0 heparin 2018-10 No 10,000 Memoria 1-10 unit/mL, l 15:29: Route: [place] 00 DIALYSIS, Drug form: INJ, ONCALL, Dosing Weight 96.364, kg, Priority: NOW, Start date: 08/18/19 9:29:00 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, Duration: 1 doses or times, 0 heparin 2018-10 No 10,000 Memoria 1-10 unit/mL, l 15:29: Route: [place] 00 DIALYSIS, Drug form: INJ, ONCALL, Dosing Weight 96.364, kg, Priority: NOW, Start date: 08/18/19 9:29:00 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, Duration: 1 doses or times, 0 heparin 2019-1 No 10,000 Memoria 1-09 unit, 10 l 19:00: mL, Route: [place] 00 DIALYSIS, Drug form: INJ, ONCALL, Dosing Weight 96.364, kg, Start date: 08/17/19 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, Duration: 1 doses or times, 0 heparin 2019-1 No 10,000 Memoria 1-09 unit, 10 l 19:00: mL, Route: [place] 00 DIALYSIS, Drug form: INJ, ONCALL, Dosing Weight 96.364, kg, Start date: 08/17/19 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, Duration: 1 doses or times, 0 heparin 2019- No 10,000 Memoria 1-09 unit, 10 l 19:00: mL, Route: [place] 00 DIALYSIS, Drug form: INJ, ONCALL, Dosing Weight 96.364, kg, Start date: 08/17/19 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, Duration: 1 doses or times, 0 Sodium 2019-1 No 1,000 mL, Memori a Chloride 1-09 1,000 l 0.9% 18:06: ml/hr, [place] (Bolus) IV 00 Infuse Over: 1 hr, Route: IV, 1,000, Drug form: INJ, PRN, Priority: STAT, Dosing Weight 96.364 kg, Start date: 08/17/19 12:06:00 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, Duration: 30 day, Stop date: 09/16/19 12:05:00 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, PRN Dialysis, 0 Sodium 2019-1 No 1,000 mL, Memori a Chloride 1-09 1,000 l 0.9% 18:06: ml/hr, [place] (Bolus) IV 00 Infuse Over: 1 hr, Route: IV, 1,000, Drug form: INJ, PRN, Priority: STAT, Dosing Weight 96.364 kg, Start date: 08/17/19 12:06:00 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, Duration: 30 day, Stop date: 09/16/19 12:05:00 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, PRN Dialysis, 0 Sodium 2019- No 1,000 mL, Memori a Chloride 1-09 1,000 l 0.9% 18:06: ml/hr, [place] (Bolus) IV 00 Infuse Over: 1 hr, Route: IV, 1,000, Drug form: INJ, PRN, Priority: STAT, Dosing Weight 96.364 kg, Start date: 08/17/19 12:06:00 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, Duration: 30 day, Stop date: 09/16/19 12:05:00 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, PRN Dialysis, 0 Potassium 2018-10 No Notes: Memori a Chloride 1-08 (Same as: l 15:18: K-Dur 20) [place] 00 "Do Not Crush" Give with food and full glass of water For patients unable to swallow tablet, dissolve in one half glass of water. Allow about 2 minutes for the tablets to disintegra te. Stir before giving to prepare slurry and administer . Please exclude Patient s with feeding tube less than 14 [place] (Dobhoff, J-tube etc) and pediatric and patients. Potassium 2018-10 No Notes: Memori a Chloride 1-08 (Same as: l 15:18: K-Dur 20) [place] 00 "Do Not Crush" Give with food and full glass of water For patients unable to swallow tablet, dissolve in one half glass of water. Allow about 2 minutes for the tablets to disintegra te. Stir before giving to prepare slurry and administer . Please exclude Patient s with feeding tube less than 14 [place] (Dobhoff, J-tube etc) and pediatric and patients. [...] s with feeding tube less than 14 [place] (Dobhoff, J-tube etc) and pediatric and patients. Seroquel 2018-10 No Notes: Memoria 1-08 (Same as: l 02:36: SEROquel) [place] Seroquel 2018-10 No Notes: Memoria 1-08 (Same as: l 02:36: SEROquel) [place] Seroquel 2018-10 No Notes: Memoria 1-08 (Same as: l 02:36: SEROquel) [place] Ativan 2018-10 No Notes: Memoria 1-07 (Same [...] n 1-07 (Same l 15:00: as:One Tab [place] 00 Daily, Tab-A-Conor + Beta Carotene) Give [...] Norvasc) lisinopril 2018-10 No Notes: Memor ia -07 (Same as: l 15:00: Prinivil, [place] 00 [...] Notes: Memoria 1-07 porcine l 06:00: heparin heparin 2018-10 No Notes: Memoria 1-07 porcine l 06:00: heparin heparin 2018-10 No Notes: Memoria 1-07 porcine l 06:00: heparin tamsulosin 2018-10 No Notes: Memor ia 1-07 (Same As: l 03:00: Flomax) "Do Not Crush" tamsulosin 2018-10 No Notes: Memor ia 1-07 (Same As: l 03:00: Flomax) [place] 00 "Do Not Crush" tamsulosin 2018-10 No Notes: Memor ia 1-07 (Same As: l 03:00: Flomax) [place] 00 "Do Not Crush" Amlodipine 2018-10 No 1 cap, Memor ia 10 MG / 1-06 Route: PO, l Benazepril 23:00: Drug Form: H ermann hydrochlori 00 CAP, de 20 MG Dosing Oral Weight Capsule 100.17, kg, TID, Start date: 08/14/19 17:00:00 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, Duration: 30 day, Stop date: 09/13/19 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 carvedilol 2018-10 No Notes: Memor ia 1-06 Give with l 23:00: food. [place] 00 (Same As: Coreg) Furosemide 2018-10 No Notes: Memor ia 1-06 (Same as: l 23:00: Lasix) May [place] 00 cause GI upset. Give with food or milk. Hydralazine 2018-10 No Notes: Kojo lynn 1-06 (Same as: l 23:00: Apresoline [place] ) May interfere w/enteral feedings Take With [...] 100.17, kg, TID, Start date: 08/14/19 17:00:00 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, Duration: 30 day, Stop date: 09/13/19 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 carvedilol 2018-10 No Notes: Memor ia 1-06 Give with l 23:00: food. [place] 00 (Same As: Coreg) Furosemide 2018-10 No Notes: Memor ia 1-06 (Same as: l 23:00: Lasix) May [place] cause GI upset. Give with food or milk. Hydralazine 2018-10 No Notes: Kojo lynn 1-06 (Same as: l 23:00: Apresoline [place] 00 ) May interfere w/enteral feedings Take [...] 100.17, kg, TID, Start date: 08/14/19 17:00:00 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, Duration: 30 day, Stop date: 09/13/19 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 carvedilol 2018-10 No Notes: Memor ia 1-06 Give with l 23:00: food. [place] 00 (Same As: Coreg) Furosemide 2018-10 No Notes: Memor ia 1-06 (Same as: l 23:00: Lasix) May [place] 00 cause GI upset. Give with food [...] 2018-10 No Notes: Do M emoria en-codeine -06 not exceed l #3 21:51: 4gm/day of acetaminop hen. (Same as: Tylenol with Codeine # 3) Dextrose 2018-10 No 12.5 gm, Memor ia 50% Syringe 10-14 25 mL, l 21:47: Route: IVP, Drug Form: INJ, Dosing Weight 100.17, kg, PRN, PRN Blood Glucose Results, Start date: 08/14/19 15:47:00 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, Duration: 30 day, Stop date: 09/13/19 15:46:00 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, 0 Glucagon 2018-10 No 1 mg, Memoria 10-14 Route: IM, l 21:47: Drug form: PDR/INJ, PRN, Dosing Weight 100.17, kg, PRN Blood Glucose Results, Start date: 08/14/19 15:47:00 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, Duration: 30 day, Stop date: 09/13/19 15:46:00 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, 0 Ondansetron 2018-10 No Notes: Kojo lynn 1-06 (Same as: l 21:47: Zofran) [place] 00 MEDICATION WASTE Product Size: 4 mg Product Wasted: ___ mg Acetaminoph 2018-10 No Notes: Do Ambrose emoria en 10-14 not exceed l 21:47: 4 gm/day. (Same as: Tylenol) Dextrose 2018-10 No 12.5 gm, Memor ia 50% Syringe 1-06 25 mL, l 21:47: Route: [place] 00 IVP, Drug Form: INJ, Dosing Weight 100.17, kg, PRN, PRN Blood Glucose Results, Start date: 08/14/19 15:47:00 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, Duration: 30 day, Stop date: 09/13/19 15:46:00 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, 0 Glucagon 2018-10 No 1 mg, Memoria 10-14 Route: IM, l 21:47: Drug form: [place] 00 PDR/INJ, PRN, Dosing Weight 100.17, kg, PRN Blood Glucose Results, Start date: 08/14/19 15:47:00 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, Duration: 30 day, Stop date: 09/13/19 15:46:00 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, 0 Ondansetron 2018-10 No Notes: Kojo lynn 10-14 (Same as: l 21:47: Zofran) [place] 00 MEDICATION WASTE Product Size: 4 mg Product Wasted: ___ mg Acetaminoph 2018-10 No Notes: Do Ambrose emoria en 10-14 not exceed l 21:47: 4 gm/day. [place] 00 (Same as: Tylenol) Dextrose 2018-10 No 12.5 gm, Memor ia 50% Syringe -06 25 mL, l 21:47: Route: [place] 00 IVP, Drug Form: INJ, Dosing Weight 100.17, kg, PRN, PRN Blood Glucose Results, Start date: 08/14/19 15:47:00 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, Duration: 30 day, Stop date: 09/13/19 15:46:00 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, 0 Glucagon 2018-10 No 1 mg, Memoria 10-14 Route: IM, l 21:47: Drug form: [place] 00 PDR/INJ, PRN, Dosing Weight 100.17, kg, PRN Blood Glucose Results, Start date: 08/14/19 15:47:00 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, Duration: 30 day, Stop date: 09/13/19 15:46:00 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, 0 Ondansetron 2018-10 No Notes: Kojo lynn 10-14 (Same as: l 21:47: Zofran) MEDICATION WASTE Product Size: 4 mg Product Wasted: ___ mg Acetaminoph 2018-10 No Notes: Do M emoria en 10-14 not exceed l 21:47: 4 gm/day. [place] (Same as: Tylenol) acetaminoph 2018-10 Yes 1 tab, PO, Memoria en-codeine 10-14 Q6H, PRN l #3 20:48: Pain Score [place] 00 4-6, 0 Refill(s) Amlodipine 2018-10 No 1 cap, PO, M emoria 10 MG / 10-14 TID, 0 l Benazepril 20:48: Refill(s) He rmann hydrochlori 00 de 20 MG Oral Capsule carvedilol 2018-10 No 6.25 mg = Me moria 6.25 mg 10-14 1 tab, PO, l oral tablet 20:48: BID, # 180 [place] 00 tab, 0 Refill(s) Hydroxyzine 2018-10 Yes 25 mg = 1 M emoria Hydrochlori 06 tab, PO, l de 25 MG 20:48: TID, 0 [place] Oral Tablet 00 Refill(s) furosemide 2018-10 No 80 mg = 1 Me moria 80 mg oral 10-14 tab, PO, l tablet 20:48: TID, 0 [place] 00 Refill(s) acetaminoph 2018-10 Yes 1 tab, PO, Memoria en-codeine 10-14 Q6H, PRN l #3 20:48: Pain Score [place] 00 4-6, 0 Refill(s) Amlodipine 2018-10 No [...] tab, PO, l tablet 20:48: TID, 0 [place] 00 Refill(s) acetaminoph 2018-10 Yes 1 tab, PO, Memoria en-codeine 10-14 Q6H, PRN l #3 20:48: Pain Score [place] 00 4-6, 0 Refill(s) Amlodipine 2018-10 No [...] l de 25 MG 20:48: TID, 0 Marol Oral Tablet 00 Refill(s) furosemide 2018-10 No 80 mg = 1 Me moria 80 mg oral 06 tab, PO, l tablet 20:48: TID, 0 [place] 00 Refill(s) doxycycline Yes 100 mg = 1 Memoria hyclate 100 7-01 cap, PO, l MG Oral 20:19: Q12H, X 5 [place] nn Capsule 00 day, # 10 cap, 0 Refill(s), Pharmacy: [facility] #[id number] lisinopril Yes 20 mg = 1 Me moria 20 mg oral 7-01 tab, PO, l tablet 20:19: Daily, # [place] 00 30 tab, 0 Refill(s), Pharmacy: [facility] #[id number] doxycycline Yes 100 mg = 1 Memoria [id number] Miralax No Notes: Memoria 7-01 Dissolve l [...] (Same as: l 02:00: Lipitor) Zithromax + 2019-0 No 500 mg, Mem oria Sodium 6-29 Route: l Chloride 22:00: IVPB, [place] 0.9% IV 250 00 [id number], mL Dosing Weight 102.273, kg, Start date: 04/06/19 17:00:00 CDT, Duration: 7 day, Stop date: 04/12/19 17:00:00 CDT, ABX Indication : Pneumonia, 0 Hydralazine 2019-0 No Notes: Kojo lynn 6-29 (Same as: l 22:00: Apresoline [place] 00 ) May interfere w/enteral feedings Take With Food Lasix 2019-0 No Notes: Memoria 6-29 (Same as: l 22:00: Lasix) February cause GI upset. Give with food or milk. Zithromax + 2019-0 No 500 mg, Mem oria Sodium 6-29 Route: l Chloride 22:00: IVPB, [place] 0.9% IV 250 00 [id number], mL Dosing Weight 102.273, kg, Start date: 04/06/19 17:00:00 CDT, Duration: 7 day, Stop date: 04/12/19 17:00:00 CDT, ABX Indication : Pneumonia, 0 Hydralazine 2019-0 No Notes: Kojo lynn 6-29 (Same as: l 22:00: Apresoline [place] 00 ) May interfere w/enteral feedings Take With Food Lasix 2019-0 No Notes: Memoria 6-29 (Same as: l 22:00: Lasix) February cause GI upset. Give with food or milk. Zithromax + 2019-0 No 500 mg, Mem oria Sodium 6-29 Route: l Chloride 22:00: IVPB, [place] 0.9% IV 250 00 [id number], mL Dosing Weight 102.273, kg, Start date: 04/06/19 17:00:00 CDT, Duration: 7 day, Stop date: 04/12/19 17:00:00 CDT, ABX Indication : Pneumonia, 0 Hydralazine 2019-0 No Notes: Kojo lynn 6-29 (Same as: l 22:00: Apresoline [place] 00 ) May interfere w/enteral feedings Take With Food Lasix No Notes: Memoria 6-29 (Same as: l 22:00: Lasix) May [place] 00 cause GI upset. Give with food or milk. [id number] No Notes: Kjoo lynn + sterile 6-29 Give IV l [...] With food l Tablet 18:22: or milk [place] [Xanax] 00 (Same as: Xanax) Hydralazine No Notes: Kojo lynn 6-29 (Same as: l 18:21: Apresoline [place] ) Push over 5 minutes Hydralazine No Notes: Kojo lynn 6-29 (Same as: l 18:21: Apresoline [place] 00 ) Push over 5 minutes Hydralazine No Notes: Kojo lynn 6-29 (Same as: l 18:21: Apresoline [place] ) Push over 5 minutes benazepril No 20 mg, Memor ia 6-29 Route: PO, l 14:00: Drug form: [place] 00 TAB, Daily, Dosing Weight 100.17, kg, [...] 0.9% 6-29 preservati l 14:00: ve free. [place] 00 heparin No Notes: Memoria 6-29 porcine l 14:00: heparin benazepril No 20 mg, Memor ia 6-29 Route: PO, l 14:00: Drug form: [place] TAB, Daily, Dosing Weight 100.17, kg, Start date: 04/06/19 9:00:00 CDT, Duration: 30 day, Stop date: 05/05/19 9:00:00 CDT Saline No Notes: Memoria Flush 0.9% 6- preservati l 14:00: ve free. heparin No Notes: Memoria 6-29 porcine l 14:00: heparin lisinopril No Notes: Memor ia 6-29 (Same as: l 08:57: Prinivil, [place] 00 Zestril) lisinopril No Notes: Memor ia 6-29 (Same as: l 08:57: Prinivil, [place] 00 Zestril) lisinopril No Notes: Memor ia 6-29 (Same as: l 08:57: Prinivil, [place] 00 Zestril) Amlodipine No Notes: Memor ia [...] l 04:30: food. (Same As: Coreg) Hydralazine 2019-0 No Notes: Kojo lynn 29 (Same as: l 04:30: Apresoline [place] 00 ) May interfere w/enteral feedings Take With Food height No height Memoria weight 6-29 weight l allergies 04:00: allergies, He rmann 00 Rn pls complete HWA for reproduction order processor, Drug form: MISC, Route: MISC, ONCALL, 04/05/19 23:00:00 CDT, Duration: 30 day, Stop date: 05/05/19 22:59:00 CDT, 0 height 2019-0 No height Memoria weight 6-29 weight l allergies 04:00: allergies, He rmann 00 Rn pls complete HWA for reproduction order processor, Drug form: MISC, Route: MISC ONCALL, 04/05/19 23:00:00 CDT, Duration: 30 day, Stop date: 05/05/19 22:59:00 CDT, 0 height 0 No height Memoria weight 6-29 weight l allergies 04:00: allergies, He rmann 00 Rn pls complete HWA for reproduction order processor, Drug form: MISC, Route: MISC, ONCALL, 04/05/19 23:00:00 CDT, Duration: 30 day, Stop date: 05/05/19 22:59:00 CDT, 0 Aspirin 325 2018-0 No Notes: (Do Memoria MG Enteric 04-06 Not Crush) l Coated 03:00: Do not [place] Tablet 00 crush or chew. Zithromax 0 No 500 mg, Memor ia 04-06 Route: l 03:00: IVPB, [place] 00 [id number], Dosing Weight 102.273, kg, Start date: 04/05/19 22:00:00 CDT, Duration: 7 day, Stop date: 04/11/19 22:00:00 CDT, ABX Indication : Pneumonia Ceftriaxone 0 No 1 gm, Memor ia 6-29 Route: l 03:00: IVPB, [place] 00 [id number], Dosing Weight 102.273, kg, Start date: 04/05/19 22:00:00 CDT, Duration: 7 day, Stop date: 04/11/19 22:00:00 CDT, ABX Indication : Pneumonia Aspirin 325 2019-0 No Notes: (Do Memoria MG Enteric 6-29 Not Crush) l Coated 03:00: Do not [place] Tablet 00 crush or chew. Zithromax 2019-0 No 500 mg, Memor ia 6-29 Route: l 03:00: IVPB, [place] 00 [id number], Dosing Weight 102.273, kg, Start date: 04/05/19 22:00:00 CDT, Duration: 7 day, Stop date: 04/11/19 22:00:00 CDT, ABX Indication : Pneumonia Ceftriaxone 2019-0 No 1 gm, Memor ia 6-29 Route: l 03:00: IVPB, [place] 00 [id number], Dosing Weight 102.273, kg, Start date: 04/05/19 22:00:00 CDT, Duration: 7 day, Stop date: 04/11/19 22:00:00 CDT, ABX Indication : Pneumonia Aspirin 325 2018-0 No Notes: (Do [facility] 6-29 Not Crush) l Coated 03:00: Do not Marlo Tablet 00 crush or chew. Zithromax 2019-0 No 500 mg, Memor ia 6-29 Route: l 03:00: IVPB, [place] 00 [id number], Dosing Weight 102.273, kg, Start date: 04/05/19 22:00:00 CDT, Duration: 7 day, Stop date: 04/11/19 22:00:00 CDT, ABX Indication : Pneumonia Ceftriaxone 2019-0 No 1 gm, Memor ia 6-29 Route: l 03:00: IVPB, [place] 00 [id number], Dosing Weight 102.273, kg, Start date: 04/05/19 22:00:00 CDT, Duration: 7 day, Stop date: 04/11/19 22:00:00 CDT, ABX Indication : Pneumonia Glucagon 2019-0 No 1 mg, Memoria 6-29 Route: IM, l 02:03: Drug form: [place] 00 PDR/INJ, PRN, Dosing Weight 102.273, kg, PRN Blood Glucose Results, Start date: 04/05/19 21:03:00 CDT, Duration: 30 day, Stop date: 05/05/19 21:02:00 CDT, 0 Bisacodyl 2019-0 No Notes: Memori a 6-29 (Same As: l 02:03: Dulcolax, [place] 00 Bisco-Lax) Ondansetron No Notes: Kojo lynn 6-29 [...] a 6-29 (Same As: l 02:03: Dulcolax, [place] 00 Bisco-Lax) Ondansetron No Notes: Kojo lynn 6-29 [...] CDT, 0 Glucagon No 1 mg, Memoria 6-29 Route: IM, l 02:03: Drug form: PDR/INJ, [...] Acetaminoph No Notes: Do M emoria en 29 not exceed l 02:02: 4 gm/day. (Same as: Tylenol) Saline No Notes: Memoria Flush 0.9% 6-29 preservati l 02:02: ve free. [place] 00 Acetaminoph No Notes: Do M emoria en 04-06 not exceed l 02:02: 4 gm/day. [place] 00 (Same as: Tylenol) Saline No Notes: [facility]oria Flush 0.9% 6-29 preservati l 02:02: ve free. [place] 00 Acetaminoph No Notes: Do M emoria en 04-06 not exceed l 02:02: 4 gm/day. [place] 00 (Same as: Tylenol) Hydromorpho No Notes: Kojo lynn ne 04-06 Same as: l 01:54: Dilaudid Tramadol No Notes: Not Mem oria 04-06 to exceed l 01:54: 400mg/day. [place] 00 (Same As: Ultram) Hydromorpho No Notes: Kojo lynn ne 04-06 Same as: l 01:54: Dilaudid [place] 00 Tramadol No Notes: Not Mem oria - to exceed l 01:54: 400mg/day. [place] 00 (Same As: Ultram) Hydromorpho No Notes: Kojo [...] 0 release Refill(s), Pharmacy: [id number] heparin 2017-10 No 10,000 Memoria 0-16 unit, 10 l 15:21: mL, Route: [place] 00 DIALYSIS, Drug form: INJ, ONCALL, Dosing [...] 0-16 unit, 10 l 15:21: mL, Route: [place] 00 DIALYSIS, Drug form: INJ, ONCALL, Dosing [...] 0-15 unit, 10 l 13:00: mL, Route: [place] 00 DIALYSIS, Drug form: INJ, ONCALL, Dosing Weight 102.273, kg, Start date: 07/23/18 8:00:00 CDT, Duration: 1 doses or times heparin 2017-10 No 10,000 [facility] 0-15 unit, 10 l 13:00: mL, Route: [place] 00 DIALYSIS, Drug form: INJ, ONCALL, Dosing Weight 102.273, kg, Start date: 07/23/18 8:00:00 CDT, Duration: 1 doses or times heparin 2017-10 No 10,000 [facility] 0-15 unit, 10 l 13:00: mL, Route: [place] 00 DIALYSIS, Drug form: INJ, ONCALL, Dosing [...] 0-15 Route: PO, l 02:00: Drug form: [place] TAB, Bedtime, Dosing Weight 102.273, kg, Start date: 07/22/18 21:00:00 CDT, Duration: 30 day, Stop date: 08/20/18 21:00:00 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 tamsulosin 2017- No Notes: Memor ia 0-15 (Same As: l 02:00: Flomax) "Do Not Crush" zolpidem 2017- No 10 mg, Memoria 0-15 Route: PO, l 02:00: Drug form: [place] 00 TAB, Bedtime, Dosing Weight 102.273, kg, Start date: 07/22/18 21:00:00 CDT, Duration: 30 day, Stop date: 08/20/18 21:00:00 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 Give with food or milk. carvedilol 2017-10 No Notes: Memor ia 0-14 Give with l 14:00: food. [place] 00 (Same As: Coreg) calcium 2017-10 No Notes: [facility] acetate 667 0-14 Same as l MG Oral 14:00: Phoslo Gel Herm dionne Capsule 00 Cap Amlodipine 2017-10 No Notes: Memor ia 0-14 (Same as: l 14:00: Norvasc) [place] 00 Docusate 2017-10 No Notes: [facility] 0-14 [...] 0-14 (Same as: l 14:00: Lasix) May [place] 00 cause GI upset. Give with food or milk. carvedilol 2017-10 No Notes: Mem[facility] ia 0-14 Give with l 14:00: food. [place] 00 (Same As: Coreg) calcium 2017-10 No Notes: [facility] acetate 667 0-14 Same as l MG Oral 14:00: Phoslo Gel Herm dionne Capsule 00 Cap Amlodipine 2017-10 No Notes: Memor ia 0-14 (Same as: l 14:00: Norvasc) [place] 00 Docusate 2017-10 No Notes: [facility] 0-14 [...] 0-14 (Same as: l 14:00: Lasix) May [place] 00 cause GI upset. Give with food or milk. carvedilol 2017-10 No Notes: [facility] ia 0-14 Give with l 14:00: food. [place] 00 (Same As: Coreg) calcium 2017-10 No Notes: [facility] acetate 667 0-14 Same as l MG Oral 14:00: Phoslo Gel Herm dionne Capsule 00 Cap Amlodipine 2017-10 No Notes: Memor ia 0-14 (Same as: l 14:00: Norvasc) [place] Docusate 2017-10 No Notes: [facility] 0-14 (Same [...] [facility]oria 0-14 TID, 0 l 11:45: Refill(s) [place] 00 Amlodipine 2017-10 Yes 1 cap, PO, M emoria 10 MG / 0-14 TID, 0 l Benazepril 11:45: [facility] Oral Capsule carvedilol 2017-10 Yes 37.5 mg = Me moria 12.5 mg 0-14 3 tab, PO, l oral tablet 11:45: BID, 0 Herm dionne 00 Refill(s) calcium 2017-10 Yes See Memoria acetate 667 0-14 Instructio l MG Oral 11:45: ns, 0 [place] Capsule 00 Refill(s) Hydralazine 2017-10 Yes 50 mg, PO, [facility] 0-14 TID, 0 l 11:45: Refill(s) [place] 00 Amlodipine 2017-10 Yes 1 cap, PO, [...] [facility]oria 0-14 TID, 0 l 11:45: Refill(s) [place] 00 Amlodipine 2017-10 Yes 1 cap, PO, [...] [facility] 0-14 Same as: l 11:27: Dilaudid [place] 00 Dilaudid 2017-10 No Notes: [facility] 0-14 Same as: l 11:27: Dilaudid [place] Dilaudid 2017-10 No Notes: [facility] 0-14 Same as: l 11:27: Dilaudid [place] Dilaudid 2017-10 No 1 mg, [facility] 0-14 Route: l 09:04: IVP, ONCE, [place] 00 Dosing Weight 96.7, kg, Priority: STAT, Start date: 07/22/18 4:04:00 CDT, Stop date: 07/22/18 4:04:00 CDT Dilaudid 2017-10 No 1 mg, [facility] 0-14 Route: l 09:04: IVP, ONCE, [place] Dosing Weight 96.7, kg, Priority: STAT, Start date: 07/22/18 4:04:00 CDT, Stop date: 07/22/18 4:04:00 CDT Dilaudid 2017-10 No 1 mg, [facility] 0-14 Route: l 09:04: IVP, ONCE, [place] Dosing Weight 96.7, kg, Priority: STAT, Start date: 07/22/18 4:04:00 CDT, Stop date: 07/22/18 4:04:00 CDT Dilaudid 2017-10 No 1 mg, [facility] 0-14 Route: l 07:16: IVP, ONCE, [place] 00 Dosing Weight 96.7, kg, Priority: STAT, Start date: 07/22/18 2:16:00 CDT, Stop date: 07/22/18 2:16:00 CDT Dilaudid 2017-10 No 1 mg, [facility] 0-14 Route: l 07:16: IVP, ONCE, [place] 00 Dosing Weight 96.7, kg, Priority: STAT, Start date: 07/22/18 2:16:00 CDT, Stop date: 07/22/18 2:16:00 CDT Dilaudid 2017-10 No 1 mg, [facility] 0-14 Route: l 07:16: IVP, ONCE, [place] 00 Dosing Weight 96.7, [...] 0-14 unit, 10 l 06:00: mL, Route: [place] 00 DIALYSIS, Drug form: INJ, ONCALL, Dosing Weight 96.7, kg, Start date: 07/22/18 1:00:00 CDT, Duration: 1 doses or times Mannitol 2017-10 No Notes: [facility] 0-14 (Same as: l 05:43: Osmitrol) [place] 00 Infuse through 5 micron or smaller [...] Duration: 30 day, Stop date: 08/21/18 0:42:00 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 [place] 00 (Same as: Morphine Sulfate-PF ) Ondansetron 2018 No Notes: Kojo lynn 0-14 (Same as: l 05:22: Zofran) [place] 00 MEDICATION WASTE Product Size: 4 mg Product Wasted: ___ mg Dilaudid 2018 No Notes: [facility] 0-14 Same as: l 05:07: Dilaudid [place] 00 Dilaudid 2018 No Notes: [facility] 0-14 Same as: l 05:07: Dilaudid [place] Dilaudid 2017-10 No Notes: [facility] 0-14 Same as: l 05:07: Dilaudid [place] Zofran 2018 No Notes: [facility] 0-14 (Same as: l 04:47: Zofran) [place] 00 MEDICATION WASTE Product Size: 4 mg Product Wasted: ___ mg Zofran 2018 No Notes: [facility]oria 0-14 (Same as: l 04:47: Zofran) [place] 00 MEDICATION WASTE Product Size: 4 mg Product Wasted: ___ mg Zofran 2018 No Notes: [facility]oria 0-14 (Same as: l 04:47: Zofran) [place] 00 MEDICATION WASTE Product Size: 4 mg Product Wasted: ___ mg Dilaudid 2018- No Notes: [facility] 0-14 Same as: l 04:46: Dilaudid [place] Dilaudid 2018 No Notes: [facility] 0-14 Same as: l 04:46: Dilaudid [place] Dilaudid 2018 No Notes: [facility] 0-14 Same as: l 04:46: Dilaudid [place] Hydromorpho 2018 No Notes: Kojo lynn ne 0-14 Same as: l 04:13: Dilaudid [place] 00 Hydromorpho 2018 No Notes: Kojo lynn ne 0-14 Same as: l 04:13: Dilaudid [place] 00 Hydromorpho 2017-10 No Notes: Kojo lynn ne 0-14 Same as: l 04:13: Dilaudid [place] 00 Saline 2018- No Notes: [facility] Flush 0.9% 0-14 (Same as: l 02:24: BD [place] 00 Posiflush) Saline 2017-10 No Notes: [facility] Flush 0.9% 0-14 (Same as: l 02:24: BD [place] 00 Posiflush) Saline 2017-10 No Notes: Memoria [...] Memor ia 0-12 (sodium l 23:39: polystyren [place] 00 e sulfonate 15 gm/60 ml CANDACE) Shake well before use. (Same as: Kayexalate , SPS) Kayexalate 2017-10 No Notes: Memor ia 0-12 (sodium l 23:39: polystyren [place] 00 e sulfonate 15 gm/60 ml CANDACE) Shake well before use. (Same as: Kayexalate , SPS) Kayexalate 2017-10 No Notes: Memor ia 0-12 (sodium l 23:39: polystyren [place] 00 e sulfonate 15 gm/60 ml CANDACE) [...] 12 0.006 MG Oral Tablet [Fauzia-Conor] zolpidem Yes 10 mg = 1 M emoria mg oral 8-14 tab, PO, l tablet 16:49: Bedtime, 0 [place] 00 Refill(s) Lorazepam Yes 1 mg = 1 Me moria [...] Bedtime, 0 [place] 00 Refill(s) Lorazepam Yes 1 mg = 1 Me moria MG Oral 8-14 tab, PO, l Tablet 16:49: PRN, 0 [place] 00 Refill(s) amLODIPine Yes 10 mg = 1 Me moria 10 mg oral 8-14 tab, PO, l tablet 16:49: Daily, 0 [place] 00 Refill(s) Ascorbic Yes 1 tab, PO, [...] tab, PO, l Tablet 16:49: PRN, 0 [place] Refill(s) amLODIPine Yes 10 mg = 1 Me moria 10 mg oral 8-14 tab, PO, l tablet 16:49: Daily, 0 [place] 00 Refill(s) tamsulosin No Notes: Memor ia 04-16 (Same As: l 02:00: Flomax) [place] "Do Not Crush" tamsulosin No Notes: Memor ia 04-16 (Same As: l 02:00: Flomax) [place] "Do Not Crush" tamsulosin No Notes: Memor [...] 04-15 (Same as: l 20:22: K-Dur 20) [place] 00 "Do Not Crush" For patients unable to swallow tablet, dissolve in one half glass of water. Allow about 2 minutes for the tablets to disintegra te. Stir before giving to prepare slurry and administer . Please exclude Patient s with feeding tube less than 14 [place] (Dobhoff, J-tube etc) and pediatric and patients. With food and full glass of water Potassium 2018-0 No Notes: Memori a [place] 04-15 (Same as: l 20:22: K-Dur 20) [place] 00 "Do Not Crush" For patients unable to swallow tablet, dissolve in one half glass of water. Allow about 2 minutes for the tablets to disintegra te. Stir before giving to prepare slurry and administer . Please exclude Patient s with feeding tube less than 14 [place] (Dobhoff, J-tube etc) and pediatric and patients. With food and full glass of water Potassium No Notes: Memori a Chloride 04-15 (Same as: l 20:22: K-Dur 20) [place] 00 "Do Not Crush" For patients unable to swallow tablet, dissolve in one half glass of water. Allow about 2 minutes for the tablets to disintegra te. Stir before giving to prepare slurry and administer . Please exclude Patient s with feeding tube less than 14 [place] (Dobhoff, J-tube etc) and pediatric and patients. With food and full glass of water Hydralazine No Notes: Kojo lynn Hydrochlori 04-15 (Same as: l de 25 MG 14:00: Apresoline Her meeks Oral Tablet 00 ) May interfere w/enteral feedings Take With Food. Lasix No Notes: Memoria 7-08 (Same as: l 14:00: Lasix) May [place] 00 cause GI upset. Give with food [...] ia 7-08 Give with l 14:00: food. [place] 00 (Same As: Coreg) calcium No Notes: [facility]oria acetate 667 -08 Same as l MG Oral 14:00: Phoslo Gel Herm dionne Capsule 00 Cap Amlodipine No Notes: Memor ia 7-08 (Same as: l 14:00: Norvasc) [place] 00 Hydralazine No Notes: Kojo lynn Hydrochlori -08 (Same as: l de 25 MG 14:00: Apresoline Her meeks Oral Tablet 00 ) May interfere w/enteral feedings Take With Food. Lasix No Notes: [facility] 7-08 (Same as: l 14:00: Lasix) May [place] 00 cause GI upset. Give with food [...] ia 7-08 (Same as: l 14:00: Norvasc) [place] 00 Hydralazine No Notes: Kojo lynn Hydrochlori 7-08 (Same as: l de 25 MG 14:00: Apresoline Her meeks Oral Tablet 00 ) May interfere w/enteral feedings Take With Food. Lasix No Notes: [facility] 7-08 (Same as: l 14:00: Lasix) May [place] 00 cause GI upset. Give with food [...] ia 7-08 Give with l 14:00: food. [place] (Same As: Coreg) calcium No Notes: [facility]oria acetate 667 7-08 Same as l MG Oral 14:00: Phoslo Gel Herm dionne Capsule 00 Cap Amlodipine No Notes: Memor ia 7-08 (Same as: l 14:00: Norvasc) Morphine 2018-0 No 2 mg, 1 Memori [...] 7-08 (Same As: l 08:47: Ambien) Hydroxyzine 2018-0 Yes 25 mg = 1 [...] Refill(s) Insulin 2017-0 No Notes: [facility] Lispro -08 (Same as: l 07:15: Humalog ) [place] 00 Roll in palms of hands gently; Do not shake `vigorousl y. "Single Patient Use Only " WASTE: F/P - Black; E - Municipal Trash Bin Stable for 28 days at room temperatur e. Expires in days from ____Date Dextrose 2017-0 No 25 gm, 50 Kojo lynn 50% Syringe 7-08 mL, Route: l 07:15: IVP, Drug [place] 00 Form: INJ, Dosing Weight 74.091, kg, [...] -08 (Same as: l 07:15: Humalog ) [place] 00 Roll in palms of hands gently; Do not shake `vigorousl y. "Single Patient Use Only " WASTE: F/P - Black; E - Municipal Trash Bin Stable for 28 days at room temperatur e. Expires in days from ____Date Dextrose 2017-0 No 25 gm, 50 Kojo lynn 50% Syringe 7-08 mL, Route: l 07:15: IVP, Drug [place] 00 Form: INJ, Dosing Weight 74.091, kg, [...] 04-15 (Same as: l 07:15: Humalog ) [place] 00 Roll in palms of hands gently; Do not shake `vigorousl y. "Single Patient Use Only " WASTE: F/P - Black; E - Municipal Trash Bin Stable for 28 days at room temperatur e. Expires in days from ____Date Dextrose 2018-0 No 25 gm, 50 Kojo lynn 50% Syringe 7-08 mL, Route: l 07:15: IVP, Drug [place] Form: INJ, Dosing Weight 74.091, kg, PRN, PRN Blood Glucose Results, Start date: 04/15/18 2:15:00 CDT, Duration: 30 day, Stop date: 05/15/18 2:14:00 CDT Glucagon 2017-0 No 1 mg, Memoria 04-15 Route: IM, l 07:15: Drug form: [place] 00 PDR/INJ, PRN, Dosing Weight 74.091, kg, PRN Blood Glucose Results, Start date: 04/15/18 2:15:00 CDT, Duration: 30 day, Stop date: 05/15/18 2:14:00 CDT Ergocalcife 2017-0 No 50,000 Kojo lynn rol [id number] 7-08 IntlUnit, l UNT Oral 07:00: 1 cap, [place] Capsule 00 Route: PO, Drug form: CAP, qWeek, Dosing Weight 74.091, kg, Start date: 04/15/18 2:00:00 CDT, Duration: 30 day, Stop date: 05/13/18 9:00:00 CDT Ergocalcife 2018-0 No 50,000 Kojo lynn rol [id number] 7-08 IntlUnit, l UNT Oral 07:00: 1 cap, [place] Capsule 00 Route: PO, Drug form: CAP, qWeek, Dosing Weight 74.091, kg, Start date: 04/15/18 2:00:00 CDT, Duration: 30 day, Stop date: 05/13/18 9:00:00 CDT Ergocalcife 2017-0 No 50,000 Kojo lynn rol [id number] 7-08 IntlUnit, l UNT Oral 07:00: 1 cap, [place] Capsule 00 Route: PO, Drug form: CAP, qWeek, Dosing Weight 74.091, kg, Start date: 04/15/18 2:00:00 CDT, Duration: 30 day, Stop date: 05/13/18 9:00:00 CDT Alprazolam No Notes: Memor ia 2 MG Oral 7-08 With food l Tablet 06:56: or milk [place] [Xanax] 00 (Same as: Xanax) Alprazolam No [...] IV 7-08 500 ml/hr, l 06:34: Infuse [place] 00 Over: 0.5 hr, Route: IV, 250, [...] (Same as: l 03:50: Norvasc) [place] Hydralazine 0 No Notes: Kojo lynn 7-08 (Same as: l 03:50: Apresoline ) Push over 5 minutes Amlodipine 0 No Notes: Memor ia 7-08 (Same as: l 03:50: Norvasc) [place] 00 Hydralazine 2017-0 No Notes: Kojo lynn 7-08 (Same as: l 03:50: Apresoline ) Push over 5 minutes Amlodipine 0 No Notes: Memor ia 7-08 (Same as: l 03:50: Norvasc) [place] Hydralazine 2017-0 No Notes: Kojo lynn 7-08 (Same as: l 03:50: Apresoline [place] 00 ) Push over 5 minutes Clonidine 2018-0 No 0.1 mg, Memor ia [...] date: 04/14/18 22:02:00 CDT Clonidine 2018-0 No Notes: Memori a Hydrochlori 7-08 (Same [...] doses or times heparin No 10,000 [facility]oria 6-11 unit, 10 l 15:00: mL, Route: [place] 00 DIALYSIS, Drug form: INJ, ONCALL, Dosing Weight 100.455, kg, Start date: 03/19/18 10:00:00 CDT, Duration: 1 doses or times heparin 2018-0 No 10,000 [facility] 6-11 unit, 10 l 15:00: mL, Route: [place] 00 DIALYSIS, Drug form: INJ, ONCALL, Dosing [...] 6-11 Rate: l 0.9% IV 14:14: 2000, [place] 1,000 mL 00 Route: IV, Dosing Weight 100.455 kg, Total Volume: 1,000, Start date: 03/19/18 9:14:00 CDT, Duration: 1 doses or times, Stop date: 03/20/18 9:13:00 CDT, 2.19, m2 Tylenol 2017-0 No Notes: Do Memor ia 6-10 not exceed l 23:00: 4 gm/day. (Same as: Tylenol) Roxicodone No Notes: Memor ia 6-10 (Same as: l 23:00: Roxicodone ) Tylenol 0 No Notes: Do Memor ia 6-10 not exceed l 23:00: 4 gm/day. (Same as: Tylenol) Roxicodone No Notes: Memor ia 6-10 (Same as: l 23:00: Roxicodone ) Tylenol No Notes: Do Memor ia 6-10 not exceed l 23:00: 4 gm/day. [place] 00 (Same as: Tylenol) Roxicodone No Notes: [...] [place] [Xanax] 00 (Same as: Xanax) Vancomycin 2018-0 No 2000 mg: [facility] 6[facility] infuse l Dosing + 03:00: over 2.5 [place] Sodium 00 hours For [place] adult 0.9% IV 250 patients mL only: Round to nearest 250 mg per Medical Staff approval MEDICATION WASTE Product Size: 1000 mg Product Wasted: ___ mg Vancomycin 2018-0 No 2000 mg: [facility] infuse l Dosing + 03:00: over 2.5 [place] Sodium 00 hours For [place] adult 0.9% IV 250 patients mL only: Round to nearest 250 mg per Medical Staff approval MEDICATION WASTE Product Size: 1000 mg Product Wasted: ___ mg Vancomycin 2018-0 No 2000 mg: [facility] infuse l Dosing + 03:00: over 2.5 [place] Sodium 00 hours For [place] adult 0.9% IV 250 patients mL only: Round to nearest 250 mg per Medical Staff approval MEDICATION WASTE Product Size: 1000 mg Product Wasted: ___ mg tamsulosin 2017- No Notes: Memor ia 6-10 (Same As: l 02:00: Flomax) [place] "Do Not Crush" carvedilol No Notes: Memor ia 6-10 Give with l 02:00: food. [place] (Same As: Coreg) tamsulosin No Notes: Memor ia 6-10 (Same As: l 02:00: Flomax) [place] "Do Not Crush" carvedilol No Notes: Memor ia 6-10 Give with l 02:00: food. [place] 00 (Same As: Coreg) tamsulosin No Notes: Memor ia 6-10 (Same As: l 02:00: Flomax) [place] "Do Not Crush" carvedilol No Notes: Memor ia 6-10 Give with l 02:00: food. [place] 00 (Same As: Coreg) Hydralazine No Notes: Kojo lynn Hydrochlori 03-17 (Same as: l de 25 MG 22:00: Apresoline Her meeks Oral Tablet ) May interfere w/enteral feedings Take With Food. Lasix No Notes: [facility]oria 6-09 (Same as: l 22:00: Lasix) May [place] 00 cause GI upset. Give with food or milk. Hydralazine No Notes: Kojo lynn Hydrochlori 6-09 (Same as: l de 25 MG 22:00: Apresoline Her meeks Oral Tablet 00 ) May interfere w/enteral feedings Take With Food. Lasix No Notes: [facility]oria 6-09 (Same as: l 22:00: Lasix) May [place] 00 cause GI upset. Give with food or milk. Hydralazine No Notes: Kojo lynn Hydrochlori 6-09 (Same as: l de 25 MG 22:00: Apresoline Her meeks Oral Tablet 00 ) May interfere w/enteral feedings Take With Food. Lasix No Notes: [facility] 6-09 (Same as: l 22:00: Lasix) May [place] cause GI upset. Give with food or milk. Hydralazine No Notes: Kojo lynn 6-09 (Same as: l 20:10: Apresoline [place] 00 ) Push over 5 minutes Acetaminoph No Notes: Kojo lynn en 325 MG / 6 (Same as: l Hydrocodone 20:10: [place] nn Bitartrate 00 325/5) Do 5 MG Oral not exceed Tablet 4gm/day of [[place] acetaminop 5/325] hen. Hydralazine No Notes: Kojo lynn 6-09 (Same as: l 20:10: Apresoline [place] 00 ) Push over 5 minutes Acetaminoph No Notes: Kojo lynn en 325 MG / 609 (Same as: l Hydrocodone 20:10: [place] nn Bitartrate 00 325/5) Do 5 MG Oral not exceed Tablet 4gm/day of [[place] acetaminop 5/325] hen. Hydralazine No Notes: Kojo lynn 6-09 (Same as: l 20:10: Apresoline [place] 00 ) Push over 5 minutes Acetaminoph No Notes: Kojo lynn en 325 MG / 6 (Same as: l Hydrocodone 20:10: [place] nn Bitartrate 00 325/5) Do 5 MG Oral not exceed Tablet 4gm/day of [[place] acetaminop 5/325] hen. phenol No Notes: Memoria 03-17 Chlorasept l 20:08: ic Chromo [place] 00 (Same as: Chlorasept ic, Sore Throat Chromo) WASTE: F/P - Black; E - Municipal Trash Bin phenol No Notes: Memoria 03-17 Chlorasept l 20:08: ic Chromo [place] 00 (Same as: Chlorasept ic, Sore Throat Chromo) WASTE: F/P - Black; E - Municipal Trash Bin phenol No Notes: Memoria 03-17 Chlorasept l 20:08: ic Chromo [place] 00 (Same as: Chlorasept ic, Sore Throat Chromo) WASTE: F/P - Black; E - Municipal Trash Bin Furosemide Yes 80 mg = 1 Me moria 80 MG Oral 03-17 tab, PO, l Tablet 15:44: BID, 0 [place] [Lasix] 00 Refill(s) amLODIPine Yes 10 mg = 1 Me moria 10 mg oral 03-17 tab, PO, l tablet 15:44: Daily, # [place] 00 30 tab, 0 Refill(s) carvedilol Yes 3.125 mg = M emoria 3.125 mg 03-17 1 tab, PO, l oral tablet 15:44: Q12H, # 60 [place] 00 tab, 0 Refill(s) calcium Yes 2,001 [...] tab, PO, l Tablet 15:44: BID, 0 [place] [Lasix] 00 Refill(s) amLODIPine Yes 10 mg = 1 Me moria 10 mg oral 03-17 tab, PO, l tablet 15:44: Daily, # [place] 00 30 tab, 0 Refill(s) carvedilol Yes 3.125 mg = M emoria 3.125 mg 03-17 1 tab, PO, l oral tablet 15:44: Q12H, # 60 [place] 00 tab, 0 Refill(s) calcium Yes 2,001 mg = Kojo lynn acetate 667 03-17 3 cap, PO, l MG Oral 15:44: TID, 0 [place] Capsule 00 Refill(s) Acetaminoph Yes 1 tab, [...] tab, PO, l Tablet 15:44: BID, 0 [place] [Lasix] 00 Refill(s) amLODIPine Yes 10 mg = 1 Me moria 10 mg oral 03-17 tab, PO, l tablet 15:44: Daily, # [place] 00 30 tab, 0 Refill(s) carvedilol Yes 3.125 mg = M emoria 3.125 mg 03-17 1 tab, PO, l oral tablet 15:44: Q12H, # 60 [place] 00 tab, 0 Refill(s) calcium Yes 2,001 mg = Kojo lynn acetate 667 03-17 3 cap, PO, l MG Oral 15:44: TID, 0 [place] Capsule 00 Refill(s) Acetaminoph Yes 1 tab, [...] dionne 00 Refill(s) heparin No Notes: Memoria 6-09 porcine l 14:00: heparin [place] heparin No Notes: [facility] 6-09 porcine l 14:00: heparin [place] heparin No Notes: [facility] 6-09 porcine l 14:00: heparin [place] heparin No 10,000 [facility] 6-09 unit, 10 l 13:00: mL, Route: [place] 00 DIALYSIS, Drug form: INJ, ONCALL, Dosing Weight 100.455, kg, Start date: 03/17/18 8:00:00 CDT, Duration: 1 doses or times heparin No 10,000 [facility] 6-09 unit, 10 l 13:00: mL, Route: [place] 00 DIALYSIS, Drug form: INJ, ONCALL, Dosing Weight 100.455, kg, Start date: 03/17/18 8:00:00 CDT, Duration: 1 doses or times heparin No 10,000 [facility] 6-09 unit, 10 l 13:00: mL, Route: [place] 00 DIALYSIS, Drug form: INJ, ONCALL, Dosing Weight 100.455, kg, Start date: 03/17/18 8:00:00 CDT, Duration: 1 doses or times Mannitol Yes Notes: [facility] 03-17 (Same as: l 12:41: Osmitrol) [place] 00 Infuse through 5 micron or smaller filter WASTE: F/P - Sink; E - Municipal Trash Bin Mannitol 2018-0 Yes Notes: [facility]oria 03-17 (Same as: l 12:41: Osmitrol) [place] 00 Infuse through 5 micron or smaller filter WASTE: F/P - Sink; E - Municipal Trash Bin Mannitol 2018-0 Yes Notes: [facility] 03-17 (Same as: l 12:41: Osmitrol) [place] 00 Infuse through 5 micron or smaller filter WASTE: F/P - Sink; E - Municipal Trash Bin Vancomycin 2018-0 No 2001 mg: Me moria 03-17 infuse [...] [facility] 03-17 (Same As: l 12:00: Maxipime) [place] 00 MEDICATION WASTE Product Size: 1000 mg Product Wasted: ___ mg Vancomycin 2018-0 No 2001 mg: Me moria 03-17 infuse [...] [facility] 03-17 (Same As: l 12:00: Maxipime) [place] 00 MEDICATION WASTE Product Size: 1000 mg Product Wasted: ___ mg Vancomycin No 2000 mg: Me moria 03-17 infuse l 12:00: over 2.5 [place] 00 hours For adult patients only: Round to nearest 250 mg per Medical Staff approval MEDICATION WASTE Product Size: 1000 mg Product Wasted: ___ mg Sodium No 2,000 mL, Memori a Chloride 03-17 l 0.9% 12:00: ml/hr, [place] (Bolus) IV 00 Infuse Over: 1 hr, [...] not exceed l 11:53: 4 gm/day. [place] (Same as: Tylenol) Saline No Notes: [facility] Flush 0.9% 03-17 (Same as: l 11:53: BD [place] 00 Posiflush) Acetaminoph No Notes: Do M emoria en 03-17 not exceed l 11:53: 4 gm/day. [place] 00 (Same as: Tylenol) Saline No Notes: [facility] Flush 0.9% 03-17 (Same as: l 11:53: BD [place] 00 Posiflush) Acetaminoph No Notes: Do M emoria en 03-17 not exceed l 11:53: 4 gm/day. Marlo (Same as: Tylenol) Insulin No Notes: Memoria Lispro 03-17 (Same as: l 11:49: Humalog ) [place] Roll in palms of hands gently; Do [...] 6- mL, Route: l 11:49: IVP, Drug Marlo [...] 6-09 mL, Route: l 11:49: IVP, Drug [place] 00 Form: INJ, Dosing Weight 98.182, kg, [...] day, Stop date: 04/16/18 6:48:00 CDT Zosyn 2018-0 No Notes: Memoria 03-17 (Same as: l 10:49: Zosyn) Dosing based on Piperacill in component MEDICATION WASTE Product Size: 4500 mg Product Wasted: ___ mg Vancomycin 2017-0 No 2000 mg: Me moria 03-17 infuse l 10:49: over 2.5 [place] 00 hours For adult patients only: Round to nearest 250 mg per Medical Staff approval MEDICATION WASTE Product Size: 1000 mg Product Wasted: ___ mg Zosyn 0 No Notes: Memoria 03-17 (Same as: l 10:49: Zosyn) Dosing based on Piperacill in component MEDICATION WASTE Product Size: 4500 mg Product Wasted: ___ mg Vancomycin 2017-0 No 2001 mg: Me moria 6- infuse l 10:49: over 2.5 [place] 00 hours For adult patients only: Round to nearest 250 mg per Medical Staff approval MEDICATION WASTE Product Size: 1000 mg Product Wasted: ___ mg Zosyn No Notes: Memoria 03-17 (Same as: l 10:49: Zosyn) [place] 00 Dosing based on Piperacill in component MEDICATION WASTE Product Size: 4500 mg Product Wasted: ___ mg Vancomycin No 2001 mg: Me moria 6- infuse l 10:49: over 2.5 [place] 00 hours For adult patients only: Round to nearest 250 mg per Medical Staff approval MEDICATION WASTE Product Size: 1000 mg Product Wasted: ___ mg Saline No Notes: Memoria Flush 0.9% 6- (Same as: l 07:36: BD [place] 00 Posiflush) Saline No Notes: Memoria Flush 0.9% 6-09 (Same as: l 07:36: BD [place] 00 Posiflush) Saline No Notes: Memoria Flush 0.9% 6-09 (Same as: l 07:36: BD [place] 00 Posiflush) Saline No Notes: [facility] Flush 0.9% 4-17 (Same as: l 00:31: BD [place] 00 Posiflush) Saline No Notes: [facility] Flush 0.9% 4-17 (Same as: l 00:31: BD [place] 00 Posiflush) Saline No Notes: [facility] Flush 0.9% 4-17 (Same as: l 00:31: BD [place] 00 Posiflush) Lasix No Notes: [facility] 3-15 (Same as: l 14:00: Lasix) May [place] cause GI upset. Give with food or milk. Lasix No Notes: [facility] 3-15 (Same as: l 14:00: Lasix) February [place] cause GI upset. Give with food or milk. Lasix No Notes: [facility] 3-15 (Same as: l 14:00: Lasix) February [place] 00 cause GI upset. Give with food or milk. calcitriol No 0.5 [facility] 0.5 mcg 3-14 microgram l oral 14:51: = 1 cap, [place] capsule 00 PO, Daily, # 30 cap, 0 Refill(s), Pharmacy: [facility] calcitriol No 0.5 Mem[facility] 0.5 mcg 3-14 microgram l oral 14:51: = 1 cap, [place] capsule 00 PO, Daily, # 30 cap, 0 Refill(s), Pharmacy: [facility] calcitriol No 0.5 [facility] 0.5 mcg 3-14 microgram l oral 14:51: = 1 cap, [place] capsule 00 PO, Daily, # 30 cap, 0 Refill(s), Pharmacy: [facility] Ergocalcife Yes 50,000 Kojo lynn rol [id number] 3-14 IntlUnit = l UNT Oral 14:47: 1 cap, PO, Her meeks Capsule 00 qWeek, # 5 cap, 0 Refill(s), Pharmacy: [facility] Calcium No 2,000 mg = Kojo lynn Carbonate 3-14 4 tab, PO, l 500 MG 14:47: TID, # 168 [place] nn Chewable 00 tab, 0 Tablet Refill(s), Pharmacy: [facility] sevelamer No 2,400 mg = Me moria carbonate 3-14 3 tab, PO, l 800 mg oral 14:47: TID-Meals, [place] tablet 00 # 270 tab, 0 Refill(s), Pharmacy: [facility] Furosemide No 80 mg, PO, M emoria 80 MG Oral 3-14 Daily, # l Tablet 14:47: 30 ea, 0 [place] [Lasix] 00 Refill(s), Pharmacy: [facility] carvedilol No 3.125 mg = M emoria 3.125 mg 3-14 1 tab, PO, l oral tablet 14:47: Q12H, # 60 [place] 00 tab, 0 Refill(s), Pharmacy: [facility] amLODIPine No 10 mg = 2 Me moria 5 mg oral 3-14 tab, PO, l tablet 14:47: Daily, # [place] 00 60 tab, 0 Refill(s), Pharmacy: [facility] Ergocalcife Yes 50,000 Kojo lynn rol [id number] 3-14 IntlUnit = l UNT Oral 14:47: 1 cap, PO, Her meeks Capsule 00 qWeek, # 5 cap, 0 Refill(s), Pharmacy: [facility] Calcium No 2,000 mg = Kojo lynn Carbonate 3-14 4 tab, PO, l 500 MG 14:47: TID, # 168 [place] nn Chewable 00 tab, 0 Tablet Refill(s), Pharmacy: [facility] sevelamer No 2,400 mg = Me moria carbonate 3-14 3 tab, PO, l 800 mg oral 14:47: TID-Meals, [place] tablet 00 # 270 tab, 0 Refill(s), Pharmacy: [facility] Furosemide No 80 mg, PO, M emoria 80 MG Oral 3-14 Daily, # l Tablet 14:47: 30 ea, 0 [place] [Lasix] 00 Refill(s), Pharmacy: [facility] carvedilol No 3.125 mg = M emoria 3.125 mg 3-14 1 tab, PO, l oral tablet 14:47: Q12H, # 60 [place] 00 tab, 0 Refill(s), Pharmacy: [facility] amLODIPine No 10 mg = 2 Me moria 5 mg oral 3-14 tab, PO, l tablet 14:47: Daily, # [place] 00 60 tab, 0 Refill(s), Pharmacy: [facility] Ergocalcife Yes 50,000 Kojo lynn rol [id number] 3-14 IntlUnit = l UNT Oral 14:47: 1 cap, PO, Her meeks Capsule 00 qWeek, # 5 cap, 0 Refill(s), Pharmacy: [facility] Calcium 0 No 2,000 mg = Kojo lynn Carbonate 3-14 4 tab, PO, l 500 MG 14:47: TID, # 168 [place] nn Chewable 00 tab, 0 Tablet Refill(s), Pharmacy: [facility] sevelamer No 2,400 mg = Me moria carbonate 3-14 3 tab, PO, l 800 mg oral 14:47: TID-Meals, [place] tablet 00 # 270 tab, 0 Refill(s), Pharmacy: [facility] Furosemide No 80 mg, PO, M emoria 80 MG Oral 3-14 Daily, # l Tablet 14:47: 30 ea, 0 [place] [Lasix] 00 Refill(s), Pharmacy: [facility] carvedilol No 3.125 mg = M emoria 3.125 mg 3-14 1 tab, PO, l oral tablet 14:47: Q12H, # 60 [place] 00 tab, 0 Refill(s), Pharmacy: [facility] amLODIPine No 10 mg = 2 Me moria 5 mg oral 3-14 tab, PO, l tablet 14:47: Daily, # [place] 00 60 tab, 0 Refill(s), Pharmacy: [facility] Calcium No Notes: Memoria Gluconate 3-14 WASTE: F/P l 11:50: - Sink; E [place] 00 - [facility] Calcium No Notes: [facility] Gluconate 3-14 WASTE: F/P l 11:50: - Sink; E [place] 00 - [facility]ash [facility] Calcium No Notes: [facility] Gluconate 3-14 WASTE: F/P l 11:50: - Sink; E [place] 00 - [facility] Coreg No Notes: Mem[facility] 3-14 Give with l 02:00: food. [place] 00 (Same As: Coreg) Coreg No Notes: [facility] 3-14 Give with l 02:00: food. [place] 00 (Same As: Coreg) Coreg No Notes: [...] WASTE: F/P l 20:44: - Sink; E [place] - [facility] Calcium No Notes: [...] Memoria 3-11 Same as: l 17:00: Renvela RenaGel No Notes: [facility] 3-11 Same as: l 17:00: vel RenaGel No Notes: [facility] 3-11 Same as: l 17:00: vel Lasix No Notes: [facility] 3-11 (Same as: [...] Memoria 3-11 Each 5ml l 14:00: contains [place] 00 100mg elemental iron. Mix with NS Non-Formul heydi (Same as:Venofer ) Administer IV only. MEDICATION WASTE Product Size: 100 mg Product Wasted: ___ mg Lasix No Notes: [facility] 3-11 (Same as: l 14:00: Lasix) [place] 00 MEDICATION WASTE Product Size: 40 mg Product Wasted: ___ mg Venofer No Notes: [facility] 3-11 Each 5ml l 14:00: contains [place] 00 100mg elemental iron. Mix with NS [...] Memor ia 3-11 (sodium l 01:11: polystyren [place] 00 e sulfonate 15 gm/60 ml CANDACE) [...] bicarbonate 3-11 (sodium l 8.4% 01:11: bicarb [place] 00 8.4% (1 mEq/ml) 50 ml syringe) Kayexalate No Notes: Memor ia 3-11 (sodium l 01:11: polystyren [place] 00 e sulfonate 15 gm/60 ml CANDACE) Shake well before use. (Same as: Kayexalate , SPS) sodium No Notes: [facility] bicarbonate 3-11 (sodium l 8.4% 01:11: bicarb [place] 00 8.4% (1 mEq/ml) 50 ml syringe) [...] Memoria 3- (Same as: l 21:38: Dilaudid) [place] Dilaudid No Notes: [facility] 3- (Same as: l 21:38: Dilaudid) [place] 00 Dilaudid No Notes: [facility] 3- (Same as: l 21:38: Dilaudid) [place] 00 Morphine No Notes: [facility] 3- (Same l 19:02: as:MORPhin [place] 00 e Sulfate) Morphine No Notes: [facility] 3- (Same l 19:02: as:MORPhin [place] 00 e Sulfate) Morphine No Notes: [facility] 3- (Same l 19:02: as:MORPhin [place] 00 e Sulfate) Acetaminoph No 2 tabs, [...] tab, PO, l Tablet 18:19: BID, PRN [place] [Xanax] 00 as needed for anxiety, 0 Refill(s) Amlodipine No 1 cap, PO, M emoria 10 MG / 3-09 TID, 0 l Benazepril 18:19: Refill(s) He rmann hydrochlori 00 de 20 MG Oral Capsule [Lotrel 10/20] lisinopril No 20 mg = 1 Me moria 20 mg oral 3-09 tab, PO, l tablet 18:19: Daily, 0 [place] 00 Refill(s) Alprazolam Yes 2 mg = [...] tab, PO, l tablet 18:19: Daily, 0 [place] Refill(s) Alprazolam Yes 2 mg = 1 Mem oria 2 MG Oral 3-09 tab, PO, l Tablet 18:19: BID, PRN [place] [Xanax] 00 as needed for anxiety, 0 Refill(s) Amlodipine No 1 cap, PO, M emoria 10 MG / 3-09 TID, 0 l Benazepril 18:19: Refill(s) Jarad rmann hydrochlori 00 de 20 MG Oral Capsule [Lotrel 10/20] lisinopril No 20 mg = 1 Me moria 20 mg oral 3-09 tab, PO, l tablet 18:19: Daily, 0 [place] 00 Refill(s) Calcium No Notes: [facility] Carbonate 12-15 (Same As: l 16:06: Tums) [place] 00 Calcium Carbonate 500 mg = 200 mg elemental calcium Dose = mg calcium carbonate ( mg elemental calcium) Calcitriol No Notes: Memor ia 12-15 (Same As: l 16:06: Rocaltrol) [place] Calcium No Notes: [facility] Carbonate 12-15 (Same As: l 16:06: Tums) [place] 00 Calcium Carbonate 500 mg = 200 mg elemental calcium Dose = mg calcium carbonate ( mg elemental calcium) Calcitriol No Notes: Memor ia 12-15 (Same As: l 16:06: Rocaltrol) [place] 00 Calcium No Notes: [facility] Carbonate 12-15 (Same As: l 16:06: Tums) Calcium Carbonate 500 mg = 200 mg elemental calcium Dose = mg calcium carbonate ( mg elemental calcium) Calcitriol No Notes: Memor ia 12-15 (Same As: l 16:06: Rocaltrol) Ondansetron No Notes: Kojo lynn 12-15 (Same as: l 14:31: Zofran) [place] MEDICATION WASTE Product Size: 4 mg Product Wasted: ___ mg Acetaminoph No Notes: Do M emoria en 12-15 not exceed l 14:31: 4 gm/day. [place] 00 (Same as: Tylenol) Acetaminoph No Notes: Kojo lynn en 325 MG / 12-15 (Same as: l Hydrocodone 14:31: [place] nn Bitartrate 00 325/5) Do 5 MG Oral not exceed Tablet 4gm/day of acetaminop hen. Ondansetron No Notes: Kojo lynn 12-15 (Same as: l 14:31: Zofran) [place] MEDICATION WASTE Product Size: 4 mg Product Wasted: ___ mg Acetaminoph No Notes: Do M emoria en 12-15 not exceed l 14:31: 4 gm/day. [place] 00 (Same as: Tylenol) Acetaminoph No Notes: Kojo lynn en 325 MG / 12-15 (Same as: l Hydrocodone 14:31: [place] nn Bitartrate 00 325/5) Do 5 MG Oral not exceed Tablet 4gm/day of acetaminop hen. Ondansetron No Notes: Kojo lynn - (Same as: l 14:31: Zofran) [place] MEDICATION WASTE Product Size: 4 mg Product Wasted: ___ mg Acetaminoph No Notes: Do M emoria en 12-15 not exceed l 14:31: 4 gm/day. [place] (Same as: Tylenol) Acetaminoph No Notes: Kojo lynn en 325 MG / - (Same as: l Hydrocodone 14:31: [place] nn Bitartrate 00 325/5) Do 5 MG Oral not exceed Tablet 4gm/day of acetaminop hen. Saline No Notes: Mem[facility] Flush 0.9% 3- (Same as: l 12:30: BD [place] 00 Posiflush) Saline No Notes: [facility] Flush 0.9% 3-09 (Same as: l 12:30: BD [place] 00 Posiflush) Saline No Notes: [facility] Flush 0.9% 3-09 (Same as: l 12:30: BD [place] 00 Posiflush) Lasix No Notes: Memoria - (Same as: l 10:45: Lasix) [place] 00 MEDICATION WASTE Product Size: 40 mg Product Wasted: ___ mg Lasix No Notes: Mem[facility] - (Same as: l 10:45: Lasix) [place] 00 MEDICATION WASTE Product Size: 40 mg Product Wasted: ___ mg Lasix No Notes: Memoria 12-15 (Same as: l 10:45: Lasix) [place] 00 MEDICATION WASTE Product Size: 40 mg Product Wasted: ___ mg Immunizations Ordered Filled Immunization Date Status Comments [facility] e Immunization Name Name influenza virus 2020-07-15 Completed [facility] [place] vaccine, 19:16:00 inactivated influenza virus 2020-07-15 Completed [facility] [place] vaccine, 19:16:00 inactivated influenza virus 2020-07-15 Completed [facility] [place] vaccine, 19:16:00 inactivated Hep B, Adol or Pedi 2018-08-16 Completed [facility] 00:00:00 [facility] Hep B, Adol or Pedi 2018-08-16 Completed [facility] Dosage 00:00:00 [facility] Hep B, Adol or Pedi 2018-08-16 Completed [facility] of Dosage 00:00:00 [facility] Hep B, Adol or Pedi 2018-08-16 Completed [facility] Dosage 00:00:00 [facility] Hep B, Adol or Pedi 2018-08-16 [...] 2018-08-16 Completed [facility] Dosage 00:00:00 [facility] Hep B, Adol or Pedi 2018-08-16 Completed [facility] Dosage 00:00:00 [facility] Hep B, Adol or Pedi 2018-08-16 Completed [facility] of Dosage 00:00:00 [facility] Influenza Virus 2018-06-28 Completed [facility] Vaccine 00:00:00 [facility] Influenza Virus 2018-06-28 Completed [facility] Vaccine 00:00:00 [facility] Influenza Virus 2018-06-28 Completed [facility] Vaccine 00:00:00 [facility] Influenza Virus 2018-06-28 Completed [facility] Vaccine 00:00:00 [facility] Influenza Virus 2018-06-28 Completed [facility] Vaccine 00:00:00 [facility] Influenza Virus 2018-06-28 Completed [facility] Vaccine 00:00:00 [facility] Influenza Virus 2018-06-28 Completed [facility] Vaccine 00:00:00 [facility] Influenza Virus 2018-06-28 Completed [facility] Vaccine 00:00:00 [facility] Influenza Virus 2018-06-28 Completed [facility] Vaccine 00:00:00 [facility] Influenza Virus 2018-06-28 Completed [facility] Vaccine 00:00:00 [facility] Influenza Virus 2018-06-28 Completed [facility] Vaccine 00:00:00 [facility] Influenza Virus 2018-06-28 Completed [facility] Vaccine 00:00:00 [facility] Influenza Virus 2018-06-28 Completed [facility] Vaccine 00:00:00 [facility] Influenza Virus 2018-06-28 Completed [facility] Vaccine 00:00:00 [facility] Influenza Virus 2018-06-28 Completed [facility] Vaccine 00:00:00 [facility] Influenza Virus 2018-06-28 Completed [facility] Vaccine 00:00:00 [facility] Influenza Virus 2018-06-28 Completed [facility] Vaccine 00:00:00 [facility] Influenza Virus 2018-06-28 Completed [facility] Vaccine 00:00:00 [facility] Hep B, Adol or Pedi 2018-05-08 Completed [facility] of Dosage 00:00:00 [facility] Hep B, Adol or Pedi 2018-05-08 Completed [facility] of Dosage 00:00:00 [facility] Hep B, Adol or Pedi 2018-05-08 Completed [facility] Dosage 00:00:00 [facility] Hep B, Adol or Pedi 2018-05-08 Completed [facility] of Dosage 00:00:00 [facility] Hep B, Adol or Pedi 2018-05-08 Completed [facility] of Dosage 00:00:00 [facility] Hep B, Adol or Pedi 2018-05-08 Completed [facility] of Dosage 00:00:00 [facility] Hep B, Adol or Pedi 2018-05-08 Completed [facility] of Dosage 00:00:00 [facility] Hep B, Adol or Pedi 2018-05-08 Completed [facility] of Dosage 00:00:00 [facility] Hep B, Adol or Pedi 2018-05-08 [...] 2018-04-05 Completed [facility] Dosage 00:00:00 [facility] Hep B, Adol or Pedi 2018-04-05 Completed [facility] Dosage 00:00:00 [facility] Hep B, Adol or Pedi 2018-04-05 Completed [facility] of Dosage 00:00:00 [facility] Hep B, Adol or Pedi 2018-04-05 Completed [facility] of Dosage 00:00:00 [facility] Hep B, Adol or Pedi 2018-04-05 Completed [facility] Dosage 00:00:00 [facility] Hep B, Adol or Pedi 2018-04-05 Completed [facility] of Dosage 00:00:00 [facility] Hep B, Adol or Pedi 2018-04-05 Completed [facility] of Dosage 00:00:00 [facility] Hep B, Adol or Pedi 2018-04-05 Completed [facility] of Dosage 00:00:00 [facility] Hep B, Adol or Pedi 2018-04-05 Completed [facility] Dosage 00:00:00 [facility] Hep B, Adol or Pedi 2018-04-05 Completed [facility] Dosage 00:00:00 [facility] pneumococcal 2018-03-20 Completed [facility] 13-valent vaccine 21:53:00 pneumococcal 2018-03-20 Completed [facility] 13-valent vaccine 21:53:00 pneumococcal 2018-03-20 Completed [facility] 13-valent vaccine 21:53:00 Hep B, Adol or Pedi 2018-03-03 Completed [facility] Dosage 00:00:00 [facility] Hep B, Adol or Pedi 2018-03-03 Completed [facility] of Dosage 00:00:00 [facility] Hep B, Adol or Pedi 2018-03-03 Completed [facility] Dosage 00:00:00 [facility] Hep B, Adol or Pedi 2018-03-03 Completed [facility] Dosage 00:00:00 [facility] Hep B, Adol or Pedi 2018-03-03 Completed [facility] of Dosage 00:00:00 [facility] Hep B, Adol or Pedi 2018-03-03 Completed [facility] of Dosage 00:00:00 [facility] Hep B, Adol or Pedi 2018-03-03 Completed [facility] Dosage 00:00:00 [facility] Hep B, Adol or Pedi 2018-03-03 Completed [facility] Dosage 00:00:00 [facility] Hep B, Adol or Pedi 2018-03-03 Completed [facility] of Dosage 00:00:00 [facility] Hep B, Adol or Pedi 2018-03-03 Completed [facility] Dosage 00:00:00 [facility] Hep B, Adol or Pedi 2018-03-03 Completed [facility] Dosage 00:00:00 [facility] Hep B, Adol or Pedi 2018-03-03 Completed [facility] of Dosage 00:00:00 [facility] Hep B, Adol or Pedi 2018-03-03 Completed [facility] of Dosage 00:00:00 [facility] Hep B, Adol or Pedi 2018-03-03 Completed [facility] of Dosage 00:00:00 [facility] Hep B, Adol or Pedi 2018-03-03 Completed [facility] of Dosage 00:00:00 [facility] Hep B, Adol or Pedi 2018-03-03 Completed [facility] of Dosage 00:00:00 [facility] Hep B, Adol or Pedi 2018-03-03 Completed [facility] of Dosage 00:00:00 [facility] Hep B, Adol or Pedi 2018-03-03 Completed [facility] Dosage 00:00:00 [facility] Pneumococcal 2018-03-01 Completed [facility] [...] 2018-03-01 Completed [facility] Polysaccharide, 00:00:00 [place] [facility] PPSV23 (PNEUMOVAX) [facility] Pneumococcal 2018-03-01 Completed [facility] Polysaccharide, 00:00:00 [facility] PPSV23 (PNEUMOVAX) [facility] Pneumococcal 2018-03-01 Completed [facility] f Polysaccharide, 00:00:00 [facility] PPSV23 (PNEUMOVAX) [facility] PPD (TB) 2018-02-27 Completed [facility] 00:00:00 [facility] PPD (TB) 2018-02-27 Completed [facility] 00:00:00 [facility] PPD (TB) 2018-02-27 Completed [facility] 00:00:00 [facility] PPD (TB) 2018-02-27 Completed [facility] 00:00:00 [facility] PPD (TB) 2018-02-27 Completed [facility] 00:00:00 [facility] PPD (TB) 2018-02-27 Completed [facility] 00:00:00 [facility] PPD (TB) 2018-02-27 Completed [facility] 00:00:00 [facility] PPD (TB) 2018-02-27 Completed [facility] of 00:00:00 [facility] PPD (TB) 2018-02-27 Completed [facility] 00:00:00 [facility] PPD (TB) 2018-02-27 Completed [facility] 00:00:00 [facility] PPD (TB) 2018-02-27 Completed [facility] 00:00:00 [facility] PPD (TB) 2018-02-27 Completed [facility] 00:00:00 [facility] PPD (TB) 2018-02-27 Completed [facility] 00:00:00 [facility] PPD (TB) 2018-02-27 Completed [facility] 00:00:00 [facility] PPD (TB) 2018-02-27 Completed [facility] 00:00:00 [facility] PPD (TB) 2018-02-27 Completed [facility] 00:00:00 [facility] PPD (TB) 2018-02-27 Completed [facility] 00:00:00 [facility] PPD (TB) 2018-02-27 Completed [facility] 00:00:00 [facility] Vital Signs Vital Name Observation Time Observation Value Comments Source Heart Rate 2020-08-12 23:15:00 [facility] [place] Respitory Rate 2020-08-12 23:15:00 [facility] [place] Systolic (mm Hg) 2020-08-12 23:15:00 Kojo rial [place] Diastolic (mm Hg) 2020-08-12 23:15:00 Mem [facility] [place] Temperature Oral (F) 2020-08-12 23:15:00 98.1 F [facility] [place] Temperature Oral (F) 2020-08-12 19:20:00 98.0 F [facility] [place] Heart Rate 2020-08-12 19:20:00 [facility] [place] Respitory Rate 2020-08-12 19:20:00 [facility] [place] Systolic (mm Hg) 2020-08-12 19:20:00 Kojo rial [place] Diastolic (mm Hg) 2020-08-12 19:20:00 Mem orial [place] Respitory Rate 2020-08-12 19:00:00 [facility] [place] Systolic (mm Hg) 2020-08-12 19:00:00 Kojo rial [place] Diastolic (mm Hg) 2020-08-12 19:00:00 Mem orial [place] Temperature Oral (F) 2020-08-12 14:00:00 97.7 F [facility] [place] Heart Rate 2020-08-12 14:00:00 [facility] [place] Temperature Oral (F) 2020-08-10 06:00:00 98.3 F [facility] [place] Heart Rate 2020-08-10 06:00:00 [facility] [place] Respitory Rate 2020-08-10 06:00:00 [facility] [place] Systolic (mm Hg) 2020-08-10 06:00:00 Kojo rial [place] Diastolic (mm Hg) 2020-08-10 06:00:00 Mem orial [place] Temperature Oral (F) 2020-08-10 02:00:00 98.4 F [facility] [place] Heart Rate 2020-08-10 02:00:00 [facility] [place] Respitory Rate 2020-08-10 02:00:00 [facility] [place] Systolic (mm Hg) 2020-08-10 02:00:00 Kojo rial [place] Diastolic (mm Hg) 2020-08-10 02:00:00 Mem [facility] [place] Temperature Oral (F) 2020-08-09 22:00:00 98.3 F [facility] [place] Heart Rate 2020-08-09 22:00:00 [facility] [place] Respitory Rate 2020-08-09 22:00:00 [facility] [place] Systolic (mm Hg) 2020-08-09 22:00:00 Kojo rial [place] Diastolic (mm Hg) 2020-08-09 22:00:00 [facility] [place] Height 2020-08-07 03:47:00 170.18 cm [facility] [place] Weight 2020-08-07 03:47:00 [facility] [place] BMI Calculated 2020-08-07 03:47:00 [facility] [place] Height 2020-08-06 18:59:00 152.4 cm [facility] [place] BMI Calculated 2020-08-06 18:59:00 [facility] [place] Weight 2020-08-06 18:59:00 [facility] [place] Respitory Rate 2020-07-24 16:17:00 [facility] [place] Systolic (mm Hg) 2020-07-24 16:17:00 Kojo rial [place] Diastolic (mm Hg) 2020-07-24 16:17:00 [facility] [place] Temperature Oral (F) 2020-07-24 16:17:00 98.0 F [facility] [place] Respitory Rate 2020-07-24 15:04:00 [facility] [place] Systolic (mm Hg) 2020-07-24 15:04:00 Kojo rial [place] Diastolic (mm Hg) 2020-07-24 15:04:00 [facility] [place] Heart Rate 2020-07-24 15:04:00 [facility] [place] Temperature Oral (F) 2020-07-24 15:04:00 97.9 F [facility] [place] Height 2020-07-24 14:45:00 170.18 cm [facility] [place] BMI Calculated 2020-07-24 14:45:00 [facility] [place] Weight 2020-07-24 14:45:00 [facility] [place] Heart Rate 2020-07-24 13:10:00 [facility] [place] Respitory Rate 2020-07-24 13:10:00 [facility] [place] Systolic (mm Hg) 2020-07-24 13:10:00 Kojo rial [place] Diastolic (mm Hg) 2020-07-24 13:10:00 Mem [facility] [place] Height 2020-07-24 12:55:00 170.18 cm [facility] [place] BMI Calculated 2020-07-24 12:55:00 [facility] [place] Weight 2020-07-24 12:55:00 [facility] [place] Heart Rate 2020-07-24 12:55:00 [facility] [place] Temperature Oral (F) 2020-07-24 12:55:00 98.2 F [facility] [place] Heart Rate 2020-07-15 19:07:00 [facility] [place] Respitory Rate 2020-07-15 19:07:00 [facility] [place] Systolic (mm Hg) 2020-07-15 19:07:00 [facility] [place] Diastolic (mm Hg) 2020-07-15 19:07:00 Mem [facility] [place] Temperature Oral (F) 2020-07-15 17:00:00 98.1 F [facility] [place] Heart Rate 2020-07-15 17:00:00 [facility] [place] Systolic (mm Hg) 2020-07-15 17:00:00 Kojo rial [place] Diastolic (mm Hg) 2020-07-15 17:00:00 Mem [facility] [place] Respitory Rate 2020-07-15 17:00:00 [facility] [place] Temperature Oral (F) 2020-07-15 13:00:00 98.3 F [facility] [place] Heart Rate 2020-07-15 13:00:00 [facility] [place] Systolic (mm Hg) 2020-07-15 13:00:00 Ko[facility] rial [place] Diastolic (mm Hg) 2020-07-15 13:00:00 Mem [facility] [place] Temperature Oral (F) 2020-07-15 09:00:00 98.1 F [facility] [place] Respitory Rate 2020-07-15 09:00:00 [facility] [place] Height 2020-07-06 10:14:00 170.18 cm [facility] [place] BMI Calculated 2020-07-06 10:14:00 [facility] [place] Weight 2020-07-06 10:14:00 [facility] [place] Systolic (mm Hg) 2020-05-21 15:01:00 Ko[facility] rial [place] Diastolic (mm Hg) 2020-05-21 15:01:00 [facility] [place] Heart Rate 2020-05-21 15:01:00 [facility] [place] Respitory Rate 2020-05-21 15:01:00 [facility] [place] Height 2020-05-21 13:15:00 170.18 cm [facility] [place] BMI Calculated 2020-05-21 13:15:00 [facility] [place] Weight 2020-05-21 13:15:00 [facility] Systolic (mm Hg) 2020-05-21 13:15:00 [facility] Diastolic (mm Hg) 2020-05-21 13:15:00 [facility] Heart Rate 2020-05-21 13:15:00 [facility] Respitory Rate 2020-05-21 13:15:00 [facility] Temperature Oral (F) 2020-05-21 13:15:00 98.5 F [facility] Systolic (mm Hg) 2020-03-23 14:05:00 [facility] Diastolic (mm Hg) 2020-03-23 14:05:00 [facility] Systolic (mm Hg) 2020-03-23 13:00:00 [facility] Diastolic (mm Hg) 2020-03-23 13:00:00 [facility] Temperature Oral (F) 2020-03-23 13:00:00 98.5 F [facility] Heart Rate 2020-03-23 13:00:00 [facility] Respitory Rate 2020-03-23 13:00:00 [facility] Systolic (mm Hg) 2020-03-23 11:10:00 [facility] Diastolic (mm Hg) 2020-03-23 11:10:00 [facility] Respitory Rate 2020-03-23 11:10:00 [facility] Heart Rate 2020-03-23 11:10:00 [facility] Temperature Oral (F) 2020-03-23 11:10:00 98.4 F [facility] Respitory Rate 2020-03-23 09:42:00 [facility] Heart Rate 2020-03-23 09:42:00 [facility] Temperature Oral (F) 2020-03-23 08:46:00 98.3 F [facility] Height 2020-03-23 05:39:00 170.18 cm [facility] BMI Calculated 2020-03-23 05:39:00 [facility] Weight 2020-03-23 05:39:00 [facility] Systolic (mm Hg) 2020-02-03 23:19:00 [facility] Diastolic (mm Hg) 2020-02-03 23:19:00 [facility] Respitory Rate 2020-02-03 23:19:00 [facility] Heart Rate 2020-02-03 23:19:00 [facility] Temperature Oral (F) 2020-02-03 23:19:00 98.6 F [facility] Systolic (mm Hg) 2020-02-03 22:04:00 [facility] Diastolic (mm Hg) 2020-02-03 22:04:00 [facility] Respitory Rate 2020-02-03 22:04:00 [facility] Heart Rate 2020-02-03 22:04:00 [facility] Systolic (mm Hg) 2020-02-03 20:14:00 [facility] Diastolic (mm Hg) 2020-02-03 20:14:00 [facility] Respitory Rate 2020-02-03 20:14:00 [facility] Heart Rate 2020-02-03 20:14:00 [facility] Temperature Oral (F) 2020-02-03 20:14:00 98.5 F [facility] Height 2020-02-03 19:22:00 170.18 cm [facility] BMI Calculated 2020-02-03 19:22:00 [facility] Weight 2020-02-03 19:22:00 [facility] Temperature Oral (F) 2020-02-03 19:22:00 99.0 F [facility] Temperature Oral (F) 2019-11-05 18:00:00 98.3 F [facility] Heart Rate 2019-11-05 18:00:00 [facility] Respitory Rate 2019-11-05 18:00:00 [facility] Systolic (mm Hg) 2019-11-05 18:00:00 [facility] Diastolic (mm Hg) 2019-11-05 18:00:00 [facility] Temperature Oral (F) 2019-11-05 14:00:00 98.1 F [facility] Heart Rate 2019-11-05 14:00:00 [facility] Respitory Rate 2019-11-05 14:00:00 [facility] Systolic (mm Hg) 2019-11-05 14:00:00 [facility] Diastolic (mm Hg) 2019-11-05 14:00:00 [facility] Respitory Rate 2019-11-05 12:36:00 [facility] Temperature Oral (F) 2019-11-05 10:00:00 98.0 F [facility] Heart Rate 2019-11-05 10:00:00 [facility] Systolic (mm Hg) 2019-11-05 10:00:00 [facility] Diastolic (mm Hg) 2019-11-05 10:00:00 [facility] Height 2019-10-29 07:23:00 170.18 cm [facility] Weight 2019-10-29 07:23:00 [facility] BMI Calculated 2019-10-29 07:23:00 [facility] Height 2019-10-29 01:03:00 170.18 cm [facility] BMI Calculated 2019-10-29 01:03:00 [facility] Weight 2019-10-29 01:03:00 [facility] Temperature Oral (F) 2019-08-20 14:07:00 98.8 F [facility] Heart Rate 2019-08-20 14:07:00 [facility] Respitory Rate 2019-08-20 14:07:00 [facility] Systolic (mm Hg) 2019-08-20 14:07:00 [facility] Diastolic (mm Hg) 2019-08-20 14:07:00 [facility] Systolic (mm Hg) 2019-08-20 12:15:00 [facility] Diastolic (mm Hg) 2019-08-20 12:15:00 [facility] Heart Rate 2019-08-20 12:15:00 [facility] Temperature Oral (F) 2019-08-20 09:46:00 98.3 F [facility] Heart Rate 2019-08-20 09:46:00 [facility] Respitory Rate 2019-08-20 09:46:00 [facility] Systolic (mm Hg) 2019-08-20 09:46:00 [facility] Diastolic (mm Hg) 2019-08-20 09:46:00 [facility] Temperature Oral (F) 2019-08-20 06:02:00 98.5 F [facility] Respitory Rate 2019-08-20 06:02:00 [facility] Height 2019-08-14 22:12:00 175.26 cm [facility] Weight 2019-08-14 22:12:00 [facility] BMI Calculated 2019-08-14 22:12:00 [facility] Respitory Rate 2019-04-08 17:36:00 [facility] Systolic (mm Hg) 2019-04-08 17:36:00 [facility] Diastolic (mm Hg) 2019-04-08 17:36:00 [facility] Temperature Oral (F) 2019-04-08 17:36:00 98.0 F [facility] Heart Rate 2019-04-08 17:36:00 [facility] Respitory Rate 2019-04-08 13:23:00 [facility] Heart Rate 2019-04-08 13:23:00 [facility] Temperature Oral (F) 2019-04-08 13:23:00 98.1 F [facility] Systolic (mm Hg) 2019-04-08 13:23:00 [facility] Diastolic (mm Hg) 2019-04-08 13:23:00 [facility] Systolic (mm Hg) 2019-04-08 08:40:00 [facility] Diastolic (mm Hg) 2019-04-08 08:40:00 [facility] Respitory Rate 2019-04-08 08:40:00 [facility] Heart Rate 2019-04-08 08:40:00 [facility] Temperature Oral (F) 2019-04-08 08:40:00 98.0 F [facility] Weight 2019-04-06 04:23:00 [facility] BMI Calculated 2019-04-06 04:17:00 [facility] Height 2019-04-06 04:17:00 167.64 cm [facility] Weight 2019-04-06 04:17:00 [facility] Respitory Rate 2018-07-24 20:59:00 [facility] Systolic (mm Hg) 2018-07-24 20:59:00 [facility] Diastolic (mm Hg) 2018-07-24 20:59:00 [facility] Heart Rate 2018-07-24 20:59:00 [facility] Temperature Oral (F) 2018-07-24 20:59:00 98.2 F [facility] Temperature Oral (F) 2018-07-24 16:59:00 98.3 F [facility] Heart Rate 2018-07-24 16:59:00 [facility] Respitory Rate 2018-07-24 16:59:00 [facility] Systolic (mm Hg) 2018-07-24 16:59:00 [facility] Diastolic (mm Hg) 2018-07-24 16:59:00 [facility] Systolic (mm Hg) 2018-07-24 16:33:00 [facility] Diastolic (mm Hg) 2018-07-24 16:33:00 [facility] Temperature Oral (F) 2018-07-24 16:33:00 98.2 F [facility] Respitory Rate 2018-07-24 16:33:00 [facility] Heart Rate 2018-07-24 16:33:00 [facility] Weight 2018-07-22 11:03:00 [facility] BMI Calculated 2018-07-22 11:03:00 [facility] Height 2018-07-22 11:03:00 170.18 cm [facility] BMI Calculated 2018-07-22 01:54:00 [facility] Height 2018-07-22 01:54:00 170.18 cm [facility] Weight 2018-07-22 01:54:00 [facility] Respitory Rate 2018-07-21 02:35:00 [facility] Temperature Oral (F) 2018-07-21 02:35:00 98.6 F [facility] Systolic (mm Hg) 2018-07-21 02:35:00 [facility] Diastolic (mm Hg) 2018-07-21 02:35:00 [facility] Respitory Rate 2018-07-20 23:36:00 [facility] Systolic (mm Hg) 2018-07-20 23:36:00 [facility] Diastolic (mm Hg) 2018-07-20 23:36:00 [facility] Systolic (mm Hg) 2018-07-20 22:37:00 [facility] Diastolic (mm Hg) 2018-07-20 22:37:00 [facility] Respitory Rate 2018-07-20 22:37:00 [facility] Heart Rate 2018-07-20 22:37:00 [facility] Temperature Oral (F) 2018-07-20 22:37:00 97.7 F [facility] Height 2018-07-20 22:37:00 170.18 cm [facility] BMI Calculated 2018-07-20 22:37:00 [facility] Weight 2018-07-20 22:37:00 [facility] BMI Calculated 2018-05-23 15:20:00 [facility] Weight 2018-05-23 15:20:00 [facility] Respitory Rate 2018-05-23 15:20:00 [facility] Heart Rate 2018-05-23 15:20:00 [facility] Height 2018-05-23 15:20:00 170 cm [facility] Systolic (mm Hg) 2018-05-23 15:20:00 [facility] Diastolic (mm Hg) 2018-05-23 15:20:00 [facility] Systolic (mm Hg) 2018-04-15 21:25:00 [facility] Diastolic (mm Hg) 2018-04-15 21:25:00 [facility] Respitory Rate 2018-04-15 16:40:00 [facility] Heart Rate 2018-04-15 16:40:00 [facility] Systolic (mm Hg) 2018-04-15 16:40:00 [facility] Diastolic (mm Hg) 2018-04-15 16:40:00 [facility] Temperature Oral (F) 2018-04-15 16:40:00 98.2 F [facility] Heart Rate 2018-04-15 13:15:00 [facility] Temperature Oral (F) 2018-04-15 13:15:00 98.0 F [facility] Systolic (mm Hg) 2018-04-15 13:15:00 [facility] Diastolic (mm Hg) 2018-04-15 13:15:00 [facility] Respitory Rate 2018-04-15 13:15:00 [facility] Temperature Oral (F) 2018-04-15 09:31:00 98.2 F [facility] Heart Rate 2018-04-15 09:31:00 [facility] Respitory Rate 2018-04-15 09:31:00 [facility] Weight 2018-04-15 07:53:00 [facility] Weight 2018-04-14 23:25:00 [facility] Height 2018-04-14 23:25:00 172.72 cm [facility] BMI Calculated 2018-04-14 23:25:00 [facility] Systolic (mm Hg) 2018-03-20 16:07:00 [facility] Diastolic (mm Hg) 2018-03-20 16:07:00 [facility] Respitory Rate 2018-03-20 16:07:00 [facility] Heart Rate 2018-03-20 16:07:00 [facility] Temperature Oral (F) 2018-03-20 16:07:00 98.4 F [facility] Systolic (mm Hg) 2018-03-20 12:44:00 [facility] Diastolic (mm Hg) 2018-03-20 12:44:00 [facility] Respitory Rate 2018-03-20 12:44:00 [facility] Heart Rate 2018-03-20 12:44:00 [facility] Temperature Oral (F) 2018-03-20 12:44:00 98.3 F [facility] Respitory Rate 2018-03-20 08:46:00 [facility] Temperature Oral (F) 2018-03-20 08:46:00 98.3 F [facility] Heart Rate 2018-03-20 08:46:00 [facility] Systolic (mm Hg) 2018-03-20 08:46:00 [facility] Diastolic (mm Hg) 2018-03-20 08:46:00 [facility] BMI Calculated 2018-03-17 12:01:00 [facility] Weight 2018-03-17 12:01:00 [facility] Height 2018-03-17 12:01:00 167.64 cm [facility] Weight 2018-03-17 07:27:00 [facility] Temperature Oral (F) 2018-01-23 03:30:00 98.2 F [facility] Respitory Rate 2018-01-23 03:30:00 [facility] Systolic (mm Hg) 2018-01-23 03:30:00 [facility] Diastolic (mm Hg) 2018-01-23 03:30:00 [facility] Respitory Rate 2018-01-23 01:48:00 [facility] Heart Rate 2018-01-23 01:48:00 [facility] Systolic (mm Hg) 2018-01-23 01:48:00 [facility] Diastolic (mm Hg) 2018-01-23 01:48:00 [facility] Temperature Oral (F) 2018-01-23 00:14:00 98.2 F [facility] Respitory Rate 2018-01-23 00:14:00 [facility] Systolic (mm Hg) 2018-01-23 00:14:00 [facility] Diastolic (mm Hg) 2018-01-23 00:14:00 [facility] Heart Rate 2018-01-23 00:14:00 [facility] BMI Calculated 2018-01-23 00:14:00 [facility] Height 2018-01-23 00:14:00 165.1 cm [facility] Weight 2018-01-23 00:14:00 [facility] Systolic (mm Hg) 2017-12-20 12:31:00 [facility] Diastolic (mm Hg) 2017-12-20 12:31:00 [facility] Temperature Oral (F) 2017-12-20 12:31:00 98.0 F [facility] Respitory Rate 2017-12-20 12:31:00 [facility] Heart Rate 2017-12-20 12:31:00 [facility] Systolic (mm Hg) 2017-12-20 05:00:00 [facility] Diastolic (mm Hg) 2017-12-20 05:00:00 [facility] Temperature Oral (F) 2017-12-20 05:00:00 98 F [facility] Heart Rate 2017-12-20 05:00:00 [facility] Respitory Rate 2017-12-20 05:00:00 [facility] Temperature Oral (F) 2017-12-20 01:00:00 97.6 F [facility] Heart Rate 2017-12-20 01:00:00 [facility] Systolic (mm Hg) 2017-12-20 01:00:00 [facility] Diastolic (mm Hg) 2017-12-20 01:00:00 [facility] Respitory Rate 2017-12-20 01:00:00 [facility] BMI Calculated 2017-12-15 16:46:00 [facility] Weight 2017-12-15 16:46:00 [facility] Height 2017-12-15 16:46:00 170.18 cm [facility] Height 2017-12-15 16:11:00 170.18 cm [facility] Weight 2017-12-15 11:31:[address] [facility] Procedures Procedure Date / Time Performed Performing Clinician [facility] e Dialysis access site care [facility] Knee maneuver [facility] Shoulder manipulation [facility] ermann Encounters Start End Encounter Admission Attending Care Care Encounter Source Date/Time Date/Time Type Type Clinicians Facility Department ID 2021-11-04 Outpatient 3 [id number] ENC[facility] JACOB [id number] [facility] 12:13:09 [facility] [place] [facility] 2021-11-04 Outpatient 3 [id number] ENC[facility] REF [id number] [facility] 12:09:58 [facility] [place] 2021-11-04 Outpatient 3 [id number] ENC[facility] REF [id number] [facility] 12:08:30 [facility] [place] 2021-08-06 Emergency [facility] [id number] Univers 17:13:07 [facility] 2021-08-06 Outpatient R KARRIE [facility] LELO [id number] Univers 10:57:39 OMID [facility] 2021-08-05 [facility] [id number] Univers 21:35:24 TEODORA lam [facility] 2019-04-05 Inpatient E [facility] [id number] B L 20:14:00 2019-04-05 Inpatient YESENIA SHRESTHA [facility] [id number] [facility] 18:31:48 2022-11-01 2022-11-01 [facility] [id number] Univers 10:00:00 10:00:00 ADILIA ity o f [facility] 2022-10-26 2022-10-26 Case [facility] [id number] Univers 00:00:00 00:00:00 Management Adilia Clayton MULTISPEC 350.1.13.10 ity of IALTY 4.2.7.2.686 [facility] [place] [id number] [address] [facility] 2022-10-14 2022-10-14 Telephone [facility] 1.2.840.114 [id number] Univers 00:00:00 00:00:00 Dionne carballo MULTISPEC 350.1.13.10 ity of IALTY 4.2.7.2.686 [facility] [place] [id number] [address] [facility] 2022-10-12 2022-10-12 Telephone [facility] 1.2.840.114 [id number] Univers 00:00:00 00:00:00 Dionne carballo MULTISPEC 350.1.13.10 ity of IALTY 4.2.7.2.686 [facility] [id number] [address] [facility] 2022-09-22 2022-09-22 Telephone [facility] 1.2.840.114 [id number] Univers 00:00:00 00:00:00 Adilia Clayton MULTISPEC 350.1.13.10 [place] [id number] [address] [facility] 2022-09-06 2022-09-06 Telephone [facility] 1.2.840.114 [id number] Univers 00:00:00 00:00:00 Dionne carballo MULTISPEC 350.1.13.10 [place] [id number] [facility] [address] [facility] 2022-08-10 2022-08-10 Letter [facility] 1.2.840.114 [id number] Univers 00:00:00 00:00:00 (Out) Adilia Clayton MULTISPEC 350.1.13.10 [place] [id number] [address] [facility] 2022-08-04 2022-08-04 Telephone [facility] 1.2.840.114 [id number] Univers 00:00:00 00:00:00 Rufina MULTISPEC 350.1.13.10 [place] [id number] [address] [facility] 2022-08-04 2022-08-04 Telephone [facility] 1.2.840.114 [id number] Univers 00:00:00 00:00:00 Adilia Clayton MULTISPEC 350.1.13.10 [place] [id number] [address] [facility] 2022-05-02 2022-05-02 Committee [facility] 1.2.840.114 [id number] Univers 00:00:00 00:00:00 Review Adilia Clayton MULTISPEC 350.1.13.10 [place] [id number] [address] [facility] 2022-04-27 2022-04-27 Telephone [facility] 1.2.840.114 [id number] Univers 00:00:00 00:00:00 Theresa Rosario MULTISPEC 350.1.13.10 [place] [id number] [facility] [place] [address] [facility] 2022-04-27 2022-04-27 [facility] 1.2.840.114 [id number] Univers 00:00:00 00:00:00 Teodora MULTISPEC 350.1.13.10 [place] [id number] [address] [facility] 2022-04-25 2022-04-25 Telephone [facility] 1.2.840.114 [id number] Univers 00:00:00 00:00:00 Pat A MULTISPEC 350.1.13.10 ity of IALTY 4.2.7.2.686 [facility] [id number] [address] [facility] 2022-04-22 2022-04-22 Telephone [facility] 1.2.840.114 [id number] Univers 00:00:00 00:00:00 Adilia Clayton MULTISPEC 350.1.13.10 [place] [id number] [address] [facility] 2022-04-21 2022-04-21 Outpatient R [facility] [id number] Univers 08:00:00 08:00:00 ADILIA ity o f [facility] 2022-03-15 2022-03-15 Abstract [facility] [id number] Univers 00:00:00 00:00:00 Adilia Clayton MULTISPEC 350.1.13.10 [place] [id number] [facility] AND [address] [facility] 2022-01-21 2022-01-21 [facility] [id number] Univers 12:23:00 23:59:00 Encounter Adilia Clayton RODNEY 350.1.13.10 ity of HOSPITAL 4.2.7.2.686 [place] [id number] [place] [address] [address] 2022-01-21 2022-01-21 [facility] [id number] Univers 00:00:00 00:00:00 PAT ity o f [facility] 2021-09-10 2021-09-10 [email or web address] 1.2.840.114 [id number] Univers 00:00:00 00:00:00 Carina-Eder PRIMARY 350.1.13.10 it[place] of C[place]2.7.2.[place] [id number] Mn dical [address] 2021-08-02 2021-08-02 [facility] 1.2.090.132 [id number] Univers 11:53:00 23:59:00 Encounter Pat A RODNEY 350.1.13.10 ity of [facility] 4.2.7.2.686 [place] as [id number] [facility] [address] 2021-08-02 2021-08-02 Outpatient R [facility] [id number] Univers 00:00:00 23:59:00 PAT ity o f [facility] 2021-08-02 2021-08-02 Outpatient R [facility] [id number] Univers 00:00:00 00:00:00 PAT ity o f [facility] 2021-08-02 2021-08-02 Abstract [facility] 1.2.911.710 [id number] Univers 00:00:00 00:00:00 Pat A MULTISPEC 350.1.13.10 [place] [id number] [facility] [address] [facility] 2021-07-30 2021-07-30 Abstract [facility] 1.2.471.158 [id number] Univers 00:00:00 00:00:00 Pat A MULTISPEC 350.1.13.10 [place] [id number] [address] [facility] 2021-07-28 2021-07-28 [facility] 1.2.821.341 [id number] Univers 12:38:00 23:59:00 Encounter Adilia Clayton RODNEY 350.1.13.10 ity of [facility] 4.2.7.2.686 [place] as [id number] [facility] [address] 2021-07-28 2021-07-[address] [facility] [id number] Univers 00:00:00 00:00:00 ity of [facility] 2021-07-09 2021-07-09 Letter [facility] 1.2.840.114 [id number] Univers 00:00:00 00:00:00 (Out) Pat Forrest MULTISPEC 350.1.13.10 ity [facility] [place]2.7.2.[place] [id number] [facility] [address] [facility] 2021-04-22 2021-04-22 [facility] [employer] [facility] 1.2.840.114 [id number] Univers 11:34:18 11:49:18 [facility] 350.1.13.10 ity of [facility] 4.2.7.2.[place] [id number] [facility] [address] 2021-04-22 2021-04-22 Office [facility], [facility] 1.2.459.325 [id number] 10:30:14 11:33:56 Visit Located within [facility] 350.1.13.10 CLINICS 4.2.7.2.686 [id number] 189 2021-04-22 2021-04-22 Office [facility], [facility] 1.2.892.093 [id number] [facility] 10:30:14 11:33:56 Visit Located within [facility] 350.1.13.10 i ty of CLINICS [place]2.7.2.[place] [id number] [facility] [address] 2021-04-22 2021-04-22 Outpatient R DESIRAE [facility] [id number] Univers 10:45:00 10:45:00 TEODORA itsandhya [facility] 2021-04-21 2021-04-21 [facility] 1.2.840.114 [id number] Univers 00:00:00 00:00:00 Adilia A MULTISPEC 350.1.13.10 [place] [id number] [facility] [address] [facility] 2021-04-21 2021-04-21 Telephone [facility] 1.2.840.114 [id number] Univers 00:00:00 00:00:00 Pat A MULTISPEC 350.1.13.10 [place] [id number] [facility] [address] [facility] 2021-04-20 2021-04-20 [facility] 1.2.111.932 [id number] Univers 00:00:00 00:00:00 Adilia A MULTISPEC 350.1.13.10 ity of IALTY 4.2.7.2.686 [facility] [id number] [facility] [address] [facility] 2021-04-07 2021-04-07 [facility] [id number] Univers 11:37:00 23:59:00 Encounter Pat Forrest RODNEY 350.1.13.10 ity of HOSPITAL 4.2.7.2.686 [place] [id number] [place] [address] [address] 2021-04-07 2021-04-07 Outpatient R [facility] [id number] Univers 00:00:00 00:00:00 ADILIA ity o f [facility] 2021-04-01 2021-04-01 [facility] 1.2.781.902 [id number] Univers 10:38:32 23:59:00 Encounter Adilia Clayton SPECIALTY 350.1.13.10 it[place] C[place] [id number] Mn mario READ 805 [facility] 2021-04-01 2021-04-01 Outpatient [facility] [id number] Univers 12:00:00 12:00:00 PAT ity o f [facility] 2021-04-01 2021-04-01 [facility] [id number] Univers 10:37:49 10:37:49 Encounter Pat A SPECIALTY 350.1.13.10 ity of C[place]2.[place] AT [id number] Mn mario READ [address] [place] [address] 2021-04-01 2021-04-01 [facility] 1.2.218.558 [id number] Univers 10:37:17 10:37:17 Encounter Pat A SPECIALTY 350.1.13.10 ity of CARE [place]2.[place].2.[place] AT [id number] Mn mario READ [address] [place] [address] 2021-04-01 2021-04-01 [facility] 1.2.767.550 [id number] Univers 10:36:10 10:36:10 Encounter Pat A SPECIALTY 350.1.13.10 ity of CARE 4.2.7.2.686 [facility] [phone] [place] [address] [place] [address] 2021-03-29 2021-03-29 Telephone [facility] [id number] Univers 00:00:00 00:00:00 Dionne carballo MULTISPEC 350.1.13.10 [place] [phone] [facility] [address] [facility] 2021-03-25 2021-03-25 Outpatient [facility] [id number] Univers 12:00:00 12:00:00 PAT ity o [facility] 2021-03-25 2021-03-25 Abstract [facility] [id number] Univers 00:00:00 00:00:00 Dionne carballo MULTISPEC 350.1.13.10 ity of IALTY 4.2.7.2.686 [facility] [place] [phone] [address] [facility] 2021-03-16 2021-03-16 Outpatient R [facility] [id number] Univers 10:00:00 10:00:00 [facility] 2021-02-19 2021-02-19 Telephone [facility] [id number] Univers 00:00:00 00:00:00 Pat A MULTISPEC 350.1.13.10 ity of IALTY 4.2.7.2.686 [facility] [place] [id number] [address] [facility] 2021-02-18 2021-02-18 Outpatient R [facility] [id number] Univers 11:00:00 11:00:00 [facility] 2021-02-03 2021-02-03 Abstract [facility] [id number] Univers 00:00:00 00:00:00 Pat A MULTISPEC 350.1.13.10 ity of IALTY 4.2.7.2.686 [facility] [place] [id number] [address] [facility] 2021-01-21 2021-01-21 Outpatient R [facility] [id number] Univers 08:00:00 08:00:00 [facility] 2021-01-08 2021-01-08 Letter [facility] 1.2.840.114 [id number] [facility] 00:00:00 00:00:00 (Out) Pat A MULTISPEC 350.1.13.10 ity of IALTY 4.2.7.2.686 [facility] [place] [id number] [facility] [address] [facility] 2021-01-06 2021-01-06 Telephone [facility] 1.2.840.114 [id number] Univers 00:00:00 00:00:00 Pat A MULTISPEC 350.1.13.10 ity of IALTY 4.2.7.2.686 [facility] [place] [phone] [address] [facility] 2020-12-18 2020-12-18 Telephone [facility] 1.2.840.114 [id number] Univers 00:00:00 00:00:00 Pat A MULTISPEC 350.1.13.10 ity of IALTY 4.2.7.2.686 [facility] [place] [phone] [address] [facility] 2020-12-17 2020-12-17 Outpatient R [facility] [id number] Univers 08:00:00 08:00:00 ADILIA ity o f [facility] 2020-12-01 2020-12-01 Telephone [facility] 1.2.840.114 [id number] Univers 00:00:00 00:00:00 Pat A MULTISPEC 350.1.13.10 ity of IALTY 4.2.7.2.686 [facility] [place] [phone] [address] [facility] 2020-11-12 2020-11-12 [facility] 1.2.840.114 [id number] Univers 00:00:00 00:00:00 Pat A MULTISPEC 350.1.13.10 ity of IALTY 4.2.7.2.686 [facility] [place] [phone] [address] [facility]IC 2020-11-12 2020-11-12 Abstract [facility] 1.2.483.341 [id number] Univers 00:00:00 00:00:00 Pat A MULTISPEC 350.1.13.10 ity of IALTY 4.2.7.2.686 [facility] [place] [phone] [address] [facility]IC 2020-10-30 2020-10-[address] [facility] 1.2.805.864 [id number] [id number] Univers 14:23:00 23:59:00 Encounter Adilia A RODNEY 350.1.13.10 ity of [facility] 4.2.7.2.686 O[place] as [phone] [facility] [address] 2020-10-30 2020-10-30 Outpatient R PRETTY [facility] ACO [id number] Univers 00:00:00 00:00:00 ADILIA ity o f [facility] 2020-08-28 2020-08-28 [email or web address] 1.2.788.909 [id number] Univers 00:00:00 00:00:00 Adilia Clayton MULTISPEC 350.1.13.10 ity of [facility] 4.2.7.2.686 [facility] C[facility] [phone] [facility] [place] [address] [facility] 2020-08-06 2020-08-13 Inpatient [facility] [id number] Memoria 18:41:30 00:50:00 r Marlo [address] [place] [address] 2020-08-06 2020-08-13 Inpatient [facility] [id number] Memoria 18:41:30 00:50:00 adalberto Sellers [address] [place] [address] 2020-08-06 2020-08-12 Inpatient E BRIEN, MHBL MED 7512 MHBL 20:29:00 18:50:00 [place] 2020-08-06 2020-08-12 Outpatient Brien, MHPL MHPL [id number] 13:41:30 18:50:00 [facility] 2020-08-06 2020-08-06 Outpatient Paulo Hong MHPL MHPL [id number] 13:41:30 13:41:30 Bulmaro 12 2020-07-27 2020-07-27 Outpatient R JOHN YORK [facility] [id number] Univers 14:30:00 14:30:00 ity of [facility] 2020-07-24 2020-07-24 Emergency [facility] [id number] Memoria 12:53:57 16:22:00 r Marlo [address] [place] [address] 2020-07-24 2020-07-24 Emergency [facility] [id number] Memoria 12:53:57 16:22:00 adalberto [place] [address] [place] [address] 2020-07-24 2020-07-24 Outpatient Hugo MHPL MHPL [id number] 07:53:57 11:22:00 , Cecy 11 2020-07-24 2020-07-24 Emergency E HUGO BL MHBL 7511 MHBL 07:53:00 11:22:00 , CECY 2020-07-06 2020-07-15 Inpatient [facility] [id number] Memoria 10:06:46 22:00:00 r Marlo 10 l [facility] 2020-07-06 2020-07-15 Inpatient [facility] [id number] Memoria 10:06:46 22:00:00 r Marlo 10 l [facility] 2020-07-06 2020-07-[address] MHPL [id number] 05:06:46 17:00:00 Shanna 10 2020-07-06 2020-07-06 Inpatient E REBEL, BL MED 7510 MHBL 08:50:00 05:06:00 MELIZA 2020-06-24 2020-06-24 Transition Linda Green 1.2.840.114 [id number] Univers 00:00:00 00:00:00 of Care Jair Davila 350.1.13.10 ity of [place] 4.2.7.2.686 [place] [phone] [facility] [address] 2020-06-20 2020-06-23 [facility]yeu[facility]a 1.2.840.1 14 [id number] Univers 14:27:00 18:40:00 Encounter Pam Louis 350.1.13.10 ity of [facility] 4.2.7.2.686 [place] [phone] [facility] [address] 2020-05-21 2020-05-21 Emergency [facility] [id number] Memoria 13:09:59 15:59:00 r Marlo 09 [facility] 2020-05-21 2020-05-21 Emergency [facility] [id number] Memoria 13:09:59 15:59:00 r Marlo 09 l [facility] 2020-05-21 2020-05-[address] MHPL [id number] 08:09:59 10:59:00 Trevor Leon 2020-05-21 2020-05-21 Emergency E VIRGINIE, MHBL MHBL 7509 MHBL 08:09:00 10:59:00 TREVOR 2020-05-13 2020-05-13 Juan Luis Sharif [facility] 1.2.041.043 [id number] Univers 00:00:00 00:00:00 Management Omid CRAWFORDRamone 350.1.13.10 ity of SCIENCES 4.2.7.2.686 [place] as BLDG [phone] [facility] [address] 2020-05-13 2020-05-13 Telephone [facility] 1.2.840.114 [id number] Univers 00:00:00 00:00:00 Fedesons SPECIALTY 350.1.13.10 ity of CARE 4.2.7.2.686 [facility] AT [phone] Mn mario READ 072 [facility] 2020-05-01 2020-05-01 Abstract Pretty [facility] 1.2.201.316 [id number] Univers 00:00:00 00:00:00 Adilia Clayton MULTISPEC 350.1.13.10 ity of IALTY 4.2.7.2.686 [facility] [phone] [facility] [place] [address] DI[facility]ETES CLINIC 2020-04-28 2020-04-28 [facility] 1.2.840.114 [id number] Univers 11:00:00 23:59:00 Encounter Paulina Ulrich SPECIALTY 350.1.13.10 ity of CARE 4.2.7.2.686 [facility] AT [phone] Mn mario BOXY 801 [facility] 2020-04-28 2020-04-28 Outpatient R JOHN YORK [facility] [id number] Univers 15:30:00 15:30:00 ity of [facility] 2020-04-28 2020-04-28 Telemedici [facility] 1.2.840.114 [id number] Univers 07:00:15 07:30:15 ne Visit Corby SPECIALTY 350.1.13.10 ity of C[place]2.7.2.[place] [phone] Mn mario READ 072 [facility] 2020-04-23 2020-04-23 Orders Doctor YESENIA 1.2.840.114 [id number] Univers 00:00:00 00:00:00 Only Unassigned, RODNEY 350.1.13.10 ity of [place] [facility] 4.2.7.2.686 [place] as [phone] [facility] [address] 2020-04-21 2020-04-21 Telephone [facility] 1.2.213.388 [id number] 5307 Univers 00:00:00 00:00:00 Teodora SPECIALTY 350.1.13.10 it[place]2.[place] [phone] Mn mario READ 189 [facility] 2020-04-06 2020-04-06 Abstract Pretty [facility] 1.2.966.073 [id number] 2164 Univers 00:00:00 00:00:00 Adilia Clayton MULTISPEC 350.1.13.10 ity of [place].2.7.2.[place] [phone] [facility] [place] [address] [facility] 2020-04-01 2020-04-01 Transition Linda Green 1.2.840.114 [id number] Univers 00:00:00 00:00:00 of Care Jair Davila 350.1.13.10 ity of [place].2.7.2.686 [place] [phone] [facility] [address] 2020-03-23 2020-03-30 Inpatient U BLACK [facility] STX [id number] Univers 12:01:00 16:00:00 RUPAK ity of [facility] 2020-03-23 2020-03-30 Hospital Janee Cleaning 1.2.840.114 [id number] Univers 12:01:00 16:00:00 Encounter Angie Terrazas 350.1.13.10 ity of Hospital 4.2.7.2.686 [place] [phone] [facility] [address] 2020-03-30 2020-03-30 Telephone [facility] 1.2.880.507 [id number] Univers 00:00:00 00:00:00 Teodora FERNANDEZPEC 350.1.13.10 ity of [facility] 4.2.7.2.686 [place] [phone] [facility] [address] DIABETES CLINIC 2020-03-30 2020-03-30 Case YESENIA Enriquez 1.2.450.421 [id number] [id number] Univers 00:00:00 00:00:00 Management Anna TERRAZAS 350.1.13.10 ity of [facility] 4.2.7.2.686 [place] Neela [phone] [facility] [address] 2020-03-23 2020-03-23 Emergency [facility] [id number] Memoria 05:18:16 15:31:[address] 2020-03-23 2020-03-23 Emergency [facility] [id number] Memoria 05:18:16 15:31:[address] 2020-03-23 2020-03-23 Outpatient BHAVIN Choi MHPL [id number] 00:18:16 10:31:00 [place] [address] 2020-03-23 2020-03-23 Emergency E TERESA MHBL MHBL [id number] MHBL 00:18:00 10:31:00 MEGHA 2020-03-17 2020-03-17 [facility] YESENIA Eldridge 1.2.840.114 [id number] Univers 09:23:34 23:59:00 Encounter Ramses TERRAZAS 350.1.13.10 ity of [facility] 4.2.7.2.686 [place] [phone] [facility] [address] 2020-03-13 2020-03-13 Juan Luis Merrill [facility] 1.2.601.019 [id number] Univers 00:00:00 00:00:00 Management Teodora LUCAS 350.1.13.10 ity of [facility] 4.2.7.2.686 [place] [phone] [facility] [address] 2020-03-12 2020-03-12 Outpatient Adalberto MERRILL [facility] [id number] Univers 13:30:00 13:30:00 TEODORA ity of [facility] 2020-03-12 2020-03-12 Telemedici NICO Merrill 1.2.840.114 [id number] Univers 12:21:58 12:51:58 ne Visit Teodora LUCAS 350.1.13.10 ity of CLINICS 4.2.7.2.[place] [phone] [facility] [address] 2020-03-05 2020-03-05 Hospital Janee Merrill 1.2.840.114 [id number] Univers 10:50:00 17:31:00 Encounter Teodora [place] 350.1.13.10 ity of Hospital 4.2.7.2.686 [place] [phone] [facility] [address] 2020-03-05 2020-03-05 Orders Doctor YESENIA 1.2.840.114 [id number] Univers 00:00:00 00:00:00 Only Unassigned, RODNEY 350.1.13.10 ity of [place] [facility] 4.2.7.2.686 [place] as [phone] [facility] [address] 2020-03-04 2020-03-04 Laboratory Only, Adc Test [facility] 1.2.840. 114 [id number] Univers 15:20:13 15:35:13 Only Desirae, Teodora Trejo 350.1.13.10 ity of [place].2.[place].2.[place] [phone] Mn dical [facility] 353 [facility] 2020-03-04 2020-03-04 Outpatient R DESIRAE [facility] [id number] Univers 15:00:00 15:00:00 TEODORA lam of [facility] 2020-02-13 2020-02-13 [email or web address] 1.2.840.114 [id number] Univers 00:00:00 00:00:00 Management Jisha MULTISPEC 350.1.13.10 ity of [place].2.686 [place] C[place] [phone] [facility] [place] [address] [facility]ETES CLINIC 2020-02-03 2020-02-03 Emergency nullFlavo [facility] [id number] Memoria 19:07:14 23:44:00 adalberto Sellers [address] [place] [address] 2020-02-03 2020-02-03 Emergency [facility]Flavo [facility] [id number] Memoria 19:07:14 23:44:00 r Bayside 07 l [facility] 2020-02-03 2020-02-[address] [id number] 14:07:14 18:44:00 Marci French 07 2020-02-03 2020-02-03 Emergency E KAUSHIK MHBL MHBL 7507 MHBL 14:07:00 18:44:00 MARCI 2020-01-22 2020-01-22 Abstract [email or web address] 1.2.635.440 [id number] Univers 00:00:00 00:00:00 Adilia Clayton MULTISPEC 350.1.13.10 ity of IALTY 4.2.7.2.686 [facility] [place] [phone] [address] DIABETES CLINIC 2020-01-08 2020-01-08 [facility] YESENIA Eldridge 12.840.114 [id number] Univers 11:14:48 23:59:00 Encounter Ramses TERRAZAS 350.1.13.10 ity of [place] [address].2.7.2.68 [place] [id number] [place] [address] Branch 2020-01-08 2020-01-08 Outpatient R [email or web address] ACO 1026 [id number] Univers 00:00:00 00:00:00 RAMSES lam o f [facility] 2019-12-19 2019-12-19 Abstract [email or web address] 1.2.249.905 [id number] Univers 00:00:00 00:00:00 Adilia Clayton MULTISPEC 350.1.13.10 ity of [place].2.[place] [phone] [address] DIABETES CLINIC 2019-12-18 2019-12-18 Telephone [email or web address] 1.2.016.676 [id number] [id number] Univers 00:00:00 00:00:00 Clayton MULTISPEC 350.1.13.10 ity of [place] 4.2.7.2.686 [facility] [place] [phone] [address] DIABETES CLINIC 2019-12-13 2019-12-13 Telephone [email or web address] 1.2.930.151 [id number] Univers 00:00:00 00:00:00 Teodora SPECIALTY 350.1.13.10 ity of CARE 4.2.7.2.686 [facility] C[facility] AT [phone] Mn mario READ 189 [facility] 2019-12-13 2019-12-13 [facility] 1.2.840.114 [id number] Univers 00:00:00 00:00:00 Management Teodora MULTISPEC 350.1.13.10 ity of IALTY 4.2.7.2.686 [facility] C[facility] [phone] [address] DIABETES CLINIC 2019-12-10 2019-12-10 [facility] 1.2.840.114 [id number] Univers 00:00:00 00:00:00 Management Teodora MULTISPEC 350.1.13.10 ity of IALTY 4.2.7.2.686 [facility] C[facility] [phone] [address] DIABETES CLINIC 2019-12-10 2019-12-10 [facility] 1.2.840.114 [id number] Univers 00:00:00 00:00:00 (Out) Pat A MULTISPEC 350.1.13.10 ity of IALTY 4.2.7.2.686 [facility] C[facility] [id number] [address] DIABETES CLINIC 2019-12-10 2019-12-10 Abstract [facility] 1.2.414.286 [id number] 5674 Univers 00:00:00 00:00:00 Pat A MULTISPEC 350.1.13.10 ity of IALTY 4.2.7.2.686 [facility] C[facility] [phone] [address] DIABETES CLINIC 2019-12-10 2019-12-10 [facility] 1.2.840.114 [id number] Univers 00:00:00 00:00:00 Pat A MULTISPEC 350.1.13.10 ity of IALTY 4.2.7.2.686 [facility] C[facility] [phone] [address] DIABETES CLINIC 2019-12-10 2019-12-10 Telephone [facility] 1.2.840.114 [id number] Univers 00:00:00 00:00:00 Pat Forrest MULTISPEC 350.1.13.10 it[place] of [place].2.[place] [phone] [address] DIABETES CLINIC 2019-12-10 2019-12-10 Telephone [facility] 1.2.840.114 [id number] Univers 00:00:00 00:00:00 Adilia Clayton MULTISPEC 350.1.13.10 ity of [place].2.7.2.686 [place] [phone] [address] DIABETES CLINIC 2019-12-10 2019-12-10 Telephone [facility] 1.2.816.707 0764 5825 Univers 00:00:00 00:00:00 Teodora MULTISPEC 350.1.13.10 ity of IALTY 4.2.7.2.686 [facility] [id number] [address] DIABETES CLINIC 2019-11-19 2019-11-19 Telephone [facility] 1.2.085.346 [id number] 5776 Univers 00:00:00 00:00:00 Teodora MULTISPEC 350.1.13.10 ity of IALTY 4.2.7.2.686 [facility] C[facility] [id number] [address] DIABETES CLINIC 2019-11-14 2019-11-14 Office Teodora Merrill [facility] 1.2.840.114 [id number] Univers 09:07:17 10:35:09 Visit Adilia Olsen MULTISPEC 350.1.13 .10 ity of IALTY 4.2.7.2.686 [facility] [id number] [address] DIABETES CLINIC 2019-11-07 2019-11-07 Office Angie Cleaning [facility] 1.2. 840.114 [id number] [facility] [place] 09:48:36 16:20:31 Visit Adilia Olsen MULTISPEC 350.1.13 .10 ity of [place].2.[place].2.[place] [id number] [facility] [address] DIABETES CLINIC 2019-10-29 2019-11-06 Inpatient [facility] [id number] Memoria 00:57:20 02:15:00 r Marlo 06 [facility] 2019-10-29 2019-11-06 Inpatient [facility] [id number] Memoria 00:57:20 02:15:00 r Marlo 06 [facility] 2019-10-28 2019-11-05 Outpatient Josué, MHPL MHPL [id number] 18:57:20 20:15:00 Redd 06 2019-10-30 2019-10-28 Inpatient E MHBL MED [id number] MHBL 14:55:00 23:23:00 2019-08-16 2019-08-20 Inpatient [facility] [id number] Memoria 00:36:00 19:40:00 r Marlo 10 [facility] 2019-08-16 2019-08-20 Inpatient [facility] [id number] Memoria 00:36:00 19:40:00 r Marlo 10 [facility] 2019-08-15 2019-08-20 Outpatient Symonechina MHPL MHPL [id number] 18:36:00 13:40:00 [facility] 10 2019-08-15 2019-08-14 Inpatient U MHBL MED [id number] MHBL 18:36:00 15:56:00 2019-07-08 2019-07-08 Committee Desirae [facility] 1.2.034.212 [id number] Univers 00:00:00 00:00:00 Review Teodora MULTISPEC 350.1.13.10 ity of [place].2.7.2.[place] [id number] [facility] STOCK [address] DIABETES CLINIC 2019-07-08 2019-07-08 Abstract Pretty [facility] 1.2.599.346 [id number] Univers 00:00:00 00:00:00 Adilia Clayton MULTISPEC 350.1.13.10 ity [place].2.[place] [id number] [facility] [address] DIABETES CLINIC 2019-06-20 2019-06-20 Telephone [facility] 1.2.840.114 [id number] Univers 00:00:00 00:00:00 Pat A MULTISPEC 350.1.13.10 it[place]2.[place] [id number] [address] DIABETES [facility] 2019-06-17 2019-06-17 [facility] 1.2.595.218 [id number] Univers 14:03:07 23:59:00 Encounter Pat A [place] 350.1.13.10 ity of [place].2.[place] [phone] [facility] [address] 2019-06-17 2019-06-17 Orders Doctor YESENIA 1.2.840.114 [id number] Univers 00:00:00 00:00:00 Only Unassigned, RODNEY 350.1.13.10 ity of [place] [facility] 4.2.7.2.686 [place]e [phone] [facility] [address] 2019-06-17 2019-06-17 Telephone [facility] 1.2.840.114 [id number] Univers 00:00:00 00:00:00 Pat A MULTISPEC 350.1.13.10 ity of [place].2.[place].2.[place] [id number] [facility] [address] DIABETES [facility] 2019-05-23 2019-05-23 Telephone [facility] 1.2.840.114 [id number] Univers 00:00:00 00:00:00 Pat A MULTISPEC 350.1.13.10 it[place] 4.2.7.2.[place] [id number] [address] DIABETES CLINIC 2019-05-21 2019-05-21 Telephone [facility] 1.2.840.114 [id number] Univers 00:00:00 00:00:00 Pat A MULTISPEC 350.1.13.10 ity of [place] 4.2.7.2.[place] [id number] [facility] [place] [address] [facility]ES CLIN[facility] 2019-05-09 2019-05-09 Orders Doctor YESENIA 1.2.840.114 [id number] Univers 00:00:00 00:00:00 Only Unassigned, RODNEY 350.1.13.10 ity of [place] [facility] 4.2.7.2.686 [facility] [phone] [facility] [address] 2019-04-06 2019-04-08 Inpatient [facility] [id number] Memoria 01:14:00 21:53:00 r Bayside 79 [facility] 2019-04-06 2019-04-08 Inpatient [facility] [id number] Memoria 01:14:00 21:53:[address] 2019-04-05 2019-04-[address] [id number] 20:14:00 16:53:00 Bandar 79 2018-10-17 2018-10-[address] [id number] Univers 00:00:00 23:59:00 RAMSES valdes [facility] 2018-07-22 2018-07-24 Inpatient [facility] [id number] Memoria 01:45:00 23:05:00 r Marlo 05 [facility] 2018-07-22 2018-07-24 Inpatient [facility] [id number] Memoria 01:45:00 23:05:00 r Marlo 05 [facility] 2018-07-21 2018-07-[address] [id number] 20:45:00 18:05:00 , Roger 05 Javier 2018-07-20 2018-07-21 Emergency [facility] [id number] Memoria 22:20:00 02:38:00 r Marlo 04 [facility] 2018-07-20 2018-07-21 Emergency [facility] [id number] Memoria 22:20:00 02:38:00 r Marlo 04 [facility] 2018-07-20 2018-07-[address] [id number] 17:20:00 21:38:00 Cecy 2018-05-23 2018-06-22 OP nullFlavo Transplant [id number] Memoria 14:47:00 04:59:00 Transplant r Center 00 l [facility] 2018-05-23 2018-06-22 OP nullFlavo Transplant [id number] Memoria 14:47:00 04:59:00 Transplant r Center 00 l [facility] 2018-05-23 2018-06-21 Outpatient [facility] [id number] 09:47:00 23:59:00 [facility] 2018-04-14 2018-04-15 Observatio [facility] [id number] Memoria 23:17:00 21:55:00 n adalberto Sellers 03 [facility] 2018-04-14 2018-04-15 Observatio [facility] [id number] Memoria 23:17:00 21:55:00 n adalberto Sellers 03 [facility] 2018-04-14 2018-04-15 Outpatient Ajibade, MHPL MHPL [id number] 18:17:00 16:55:00 David 03 [place] 2018-03-17 2018-03-20 Inpatient [facility] [id number] Memoria 07:25:00 22:12:00 adalberto Sellers 02 [facility] 2018-03-17 2018-03-20 Inpatient [facility] [id number] Memoria 07:25:00 22:12:00 adalberto Sellers 02 [facility] 2018-03-17 2018-03-20 Outpatient Sumner, MHPL MHPL [id number] 02:25:00 17:12:00 [place] 2018-01-22 2018-01-23 Emergency [facility] [id number] Memoria 23:36:00 03:58:00 r Marlo 01 [facility] 2018-01-22 2018-01-23 Emergency [facility] [id number] Memoria 23:36:00 03:58:00 adalberto Sellers 01 [facility] 2018-01-22 2018-01-22 Outpatient Tawny, MHPL MHPL [id number] 18:36:00 22:58:00 Osvaldo Lee 2017-12-15 2017-12-[address] [facility] [id number] Memoria 11:29:00 18:55:00 r Marlo 00 l [facility] 2017-12-15 2017-12-20 Inpatient haseebFlavo [facility] [id number] Memoria 11:29:00 18:55:00 r [place] 00 l [facility] 2017-12-15 2017-12-20 Outpatient Moses, MHPL PL [id number] 05:29:00 13:55:00 Peter 00 Results Test Description Test Time Test Comments Results Result Comments Source CHEM PANEL 2020-08-12 09:42:00 Test Item Value Reference Range Interpretation Comme nts Glucose Lvl (test code = Glucose Lvl) 79 70-99 [id number] 09:42:00 Test Item Value Reference Range Interpretation Comments BUN (test code = BUN) 21 7-22 [place] [id number] 09:42:00 Test Item Value Reference Range Interpretation Comments Creatinine Lvl (test code = Creatinine 7.93 0.50-1.40 Lvl) [facility]FORM[facility] [id number] 09:42:00 Test Item Value Reference Range Interpretation Comments Sodium Lvl (test code = Sodium Lvl) 139 135-145 [facility] [id number] 09:42:00 Test Item Value Reference Range Interpretation Comments Potassium Lvl (test code = Potassium 3.2 3.5-5.1 Lvl) [facility] LaboratoryFORMERLY [facility] [id number] 09:42:00 Test Item Value Reference Range Interpretation Comments Chloride Lvl (test code = Chloride Lvl) 104 95-109 [facility] LaboratoryEMILY [place] [id number] 09:42:00 Test Item Value Reference Range Interpretation Comments CO2 (test code = CO2) 27 24-32 [facility] LaboratoryFORMERLY [facility] [id number] 09:42:00 Test Item Value Reference Range Interpretation Comments Calcium Lvl (test code = Calcium Lvl) 8.8 8.5-10.5 [facility] [id number] 09:42:00 Test Item Value Reference Range Interpretation Comments AGAP (test code = AGAP) 11.2 10.0-20.0 [facility] [id number] 09:42:00 Test Item Value Reference Range Interpretation Comments eGFR (test code = eGFR) 7 [id number] 09:42:00 Test Item Value Reference Range Interpretation Comments Neutrophils # (test code = Neutrophils 4.7 1.5-8.1 #) [facility] [id number] 09:42:00 Test Item Value Reference Range Interpretation Comments Lymphocytes # (test code = Lymphocytes 1.2 1.0-5.5 #) [facility] CentralYshjzwiOOKBCWHCNI1802-94-97 09:42:00 Test Item Value Reference Range Interpretation Comments Monocytes # (test code 0.2 See_Comment [Aut omated message] The = Monocytes #) system which generated this result tra nsmitted reference range : <=0.8. The reference r yared was not used to int erpret this result as normal/abnormal . [facility] CentralQzdbqapQTPBFKJMSG0008-44-40 09:42:00 Test Item Value Reference Range Interpretation Comments Eosinophils # (test code 0.2 See_Comment [A utomated message] The = Eosinophils #) system whic h generated this result tra nsmitted reference range : <=0.5. The reference r yared was not used to int erpret this result as normal/abnormal . [facility] CentralSxaxulbRCNFCEUDAJ3078-16-39 09:42:00 Test Item Value Reference Range Interpretation Comments Segs (test code = Segs) 71.0 45.0-75.0 [facility] CentralSwzfaubZYNLYJEVQF6995-75-02 09:42:00 Test Item Value Reference Range Interpretation Comments Bands (test code = 2.0 See_Comment [Automat ed message] The Bands) system which ge nerated this result transmit emerson reference range : <=11.0. The reference r yared was not used to interpr et this result as erinn l/abnormal. [facility] CentralRvrbjwkSTUAJYTMCJ7176-81-77 09:42:00 Test Item Value Reference Range Interpretation Comments Lymphocytes (test code = Lymphocytes) 18.0 20.0-40.0 [place] 799140-11-04 09:42:00 Test Item Value Reference Range Interpretation Comments Monocytes (test code = Monocytes) 3.0 2.0-12.0 [place] 799140-11-04 09:42:00 Test Item Value Reference Range Interpretation Comments Eosinophils (test code = 3.0 See_Comment [A utomated message] The Eosinophils) system which ge nerated this result tra nsmitted reference range : <=4.0. The reference r yared was not used to int erpret this result as normal/abnormal . [facility] CentralDdybvuzBHAIMIAYVD1721-83-05 09:42:00 Test Item Value Reference Range Interpretation Comments Metamyelocytes (test code 2.0 See_Comment [ Automated message] = Metamyelocytes) The system which generated this result transmitted ref erence range: <=1.0. T he reference range was not used to int erpret this result as normal/abnormal . [facility] CentralIogbopjPBFQLVVYDV5862-82-77 09:42:00 Test Item Value Reference Range Interpretation Comments Myelocytes (test code = Myelocytes) 1.0 [facility] CentralImpkkxxRRARYNLLZF1942-39-21 09:42:00 Test Item Value Reference Range Interpretation Comments Atypical Lymphs (test code = Atypical 0.0 Lymphs) [facility] CentralEujifeuOLFZFOFUKT9590-25-89 09:42:00 Test Item Value Reference Range Interpretation Comments NRBC (test code = NRBC) 1 [facility] CentralWvfuvptGYSACHFZRZ8683-11-31 09:42:00 Test Item Value Reference Range Interpretation Comments RBC Morph (test code = Normal (08/12/20 3:42 RBC Morph) AM) [facility] CentralPlodwelGZCBBZVRQZ4827-21-43 09:42:00 Test Item Value Reference Range Interpretation Comments Plt Morph (test code = Normal (08/12/20 3:42 Plt Morph) AM) [facility] CentralHkhbawvRWAWPQSSZE4527-70-02 09:42:00 Test Item Value Reference Range Interpretation Comments Tot Cell Ct (test code = Tot Cell Ct) 100 1 [facility] CentralQgwqgfuHTOFNSJHIQ5803-16-33 09:42:00 Test Item Value Reference Range Interpretation Comments Polychrom (test code = Moderate *ABN*(08/12/20 Polychrom) 3:42 AM) [facility] CentralWbopyiaBEKLQBIGVB0856-66-85 09:42:00 Test Item Value Reference Range Interpretation Comments WBC (test code = WBC) 6.4 3.7-10.4 [facility] CentralDhdjgpaXFOMZHXPEB9312-09-37 09:42:00 Test Item Value Reference Range Interpretation Comments RBC (test code = RBC) 3.02 4.70-6.10 [facility] CentralPtbadxpIPCWECOLRA3156-48-79 09:42:00 Test Item Value Reference Range Interpretation Comments Hgb (test code = Hgb) 9.0 14.0-18.0 [place] [address]-11-04 09:42:00 Test Item Value Reference Range Interpretation Comments Hct (test code = Hct) 25.9 42.0-54.0 [place] [address]-11-04 09:42:00 Test Item Value Reference Range Interpretation Comments MCV (test code = MCV) 85.7 80.0-94.0 [place] [address]-11-04 09:42:00 Test Item Value Reference Range Interpretation Comments MCH (test code = MCH) 30.0 pg 27.0-31.0 [place] [address]-11-04 09:42:00 Test Item Value Reference Range Interpretation Comments MCHC (test code = MCHC) 34.9 32.0-36.0 [place] [address]-11-04 09:42:00 Test Item Value Reference Range Interpretation Comments RDW (test code = RDW) 14.8 11.5-14.5 [place] [address]-11-04 09:42:00 Test Item Value Reference Range Interpretation Comments Platelet (test code = Platelet) 169 133-450 [facility] CentralIskieiaMSGIZFVOVY7655-66-48 09:42:00 Test Item Value Reference Range Interpretation Comments MPV (test code = MPV) 7.0 7.4-10.4 [facility]2020-11-04 09:42:00 Test Item Value Reference Range Interpretation Comments Glucose Lvl (test code = Glucose Lvl) 79 70-99 [facility]2020-11-04 09:42:00 Test Item Value Reference Range Interpretation Comments BUN (test code = BUN) 21 7-22 [place] 065730-11-04 09:42:00 Test Item Value Reference Range Interpretation Comments Creatinine Lvl (test code = Creatinine 7.93 0.50-1.40 Lvl) [facility]2020-11-04 09:42:00 Test Item Value Reference Range Interpretation Comments Sodium Lvl (test code = Sodium Lvl) 139 135-145 [facility]2020-11-04 09:42:00 Test Item Value Reference Range Interpretation Comments Potassium Lvl (test code = Potassium 3.2 3.5-5.1 Lvl) [place] 065730-11-04 09:42:00 Test Item Value Reference Range Interpretation Comments Chloride Lvl (test code = Chloride Lvl) 104 95-109 [place] [address]-11-04 09:42:00 Test Item Value Reference Range Interpretation Comments CO2 (test code = CO2) 27 24-32 [place] [address]-11-04 09:42:00 Test Item Value Reference Range Interpretation Comments Calcium Lvl (test code = Calcium Lvl) 8.8 8.5-10.5 [place] [address]-11-04 09:42:00 Test Item Value Reference Range Interpretation Comments AGAP (test code = AGAP) 11.2 10.0-20.0 [place] [address]-11-04 09:42:00 Test Item Value Reference Range Interpretation Comments eGFR (test code = eGFR) 7 [place] [address]-11-04 09:42:00 Test Item Value Reference Range Interpretation Comments Neutrophils # (test code = Neutrophils 4.7 1.5-8.1 #) [place] [address]-11-04 09:42:00 Test Item Value Reference Range Interpretation Comments Lymphocytes # (test code = Lymphocytes 1.2 1.0-5.5 #) [place] [address]-11-04 09:42:00 Test Item Value Reference Range Interpretation Comments Monocytes # (test code 0.2 See_Comment [Aut omated message] The = Monocytes #) system which generated this result tra nsmitted reference range : <=0.8. The reference r yared was not used to int erpret this result as normal/abnormal . [place] [address]-11-04 09:42:00 Test Item Value Reference Range Interpretation Comments Eosinophils # (test code 0.2 See_Comment [A utomated message] The = Eosinophils #) system whic h generated this result tra nsmitted reference range : <=0.5. The reference r yared was not used to int erpret this result as normal/abnormal . [place] [address]-11-04 09:42:00 Test Item Value Reference Range Interpretation Comments Segs (test code = Segs) 71.0 45.0-75.0 [place] [address]-11-04 09:42:00 Test Item Value Reference Range Interpretation Comments Bands (test code = 2.0 See_Comment [Automat ed message] The Bands) system which ge nerated this result transmit emerson reference range : <=11.0. The reference r yared was not used to interpr et this result as erinn l/abnormal. [facility] CentralOqyneenOKDHCMRWIC6230-08-22 09:42:00 Test Item Value Reference Range Interpretation Comments Lymphocytes (test code = Lymphocytes) 18.0 20.0-40.0 [facility] CentralIwvodrxDXIMZJQCFH1021-15-13 09:42:00 Test Item Value Reference Range Interpretation Comments Monocytes (test code = Monocytes) 3.0 2.0-12.0 [facility] CentralQsyuoyjQVSLUXFGYP9150-62-76 09:42:00 Test Item Value Reference Range Interpretation Comments Eosinophils (test code = 3.0 See_Comment [A utomated message] The Eosinophils) system which ge nerated this result tra nsmitted reference range : <=4.0. The reference r yared was not used to int erpret this result as normal/abnormal . [facility] CentralTqokfvzFWKOGQFFSC8399-69-17 09:42:00 Test Item Value Reference Range Interpretation Comments Metamyelocytes (test code 2.0 See_Comment [ Automated message] = Metamyelocytes) The system which generated this result transmitted ref erence range: <=1.0. T he reference range was not used to int erpret this result as normal/abnormal . [facility] CentralKzmitjiQQIKIVZBXX2338-93-69 09:42:00 Test Item Value Reference Range Interpretation Comments Myelocytes (test code = Myelocytes) 1.0 [facility] CentralKrbaialKBNVGTYJZF1308-46-80 09:42:00 Test Item Value Reference Range Interpretation Comments Atypical Lymphs (test code = Atypical 0.0 Lymphs) [facility] CentralFnenxkbBYUEGSZPTB8624-22-16 09:42:00 Test Item Value Reference Range Interpretation Comments NRBC (test code = NRBC) 1 [facility] CentralLbpctnkZHPTBUKNJU6720-14-32 09:42:00 Test Item Value Reference Range Interpretation Comments RBC Morph (test code = Normal (08/12/20 3:42 RBC Morph) AM) [facility] CentralZozromaCTAYAQWNNA6430-21-65 09:42:00 Test Item Value Reference Range Interpretation Comments Plt Morph (test code = Normal (08/12/20 3:42 Plt Morph) AM) [place] 799140-11-04 09:42:00 Test Item Value Reference Range Interpretation Comments Tot Cell Ct (test code = Tot Cell Ct) 100 1 [facility]YnkjguoJWWVINYURC3679-89-62 09:42:00 Test Item Value Reference Range Interpretation Comments Polychrom (test code = Moderate *ABN*(08/12/20 Polychrom) 3:42 AM) [facility] CentralIswhoktWLUXNKTLWC0274-82-42 09:42:00 Test Item Value Reference Range Interpretation Comments WBC (test code = WBC) 6.4 3.7-10.4 [facility] HospitalMscvhfqWDOKHQLGUN9032-55-60 09:42:00 Test Item Value Reference Range Interpretation Comments RBC (test code = RBC) 3.02 4.70-6.10 [facility] HospitalBfweisfOCZNDLEPDW9084-40-45 09:42:00 Test Item Value Reference Range Interpretation Comments Hgb (test code = Hgb) 9.0 14.0-18.0 [facility] HospitalPpjxzawFVUBMBNNLS8550-22-29 09:42:00 Test Item Value Reference Range Interpretation Comments Hct (test code = Hct) 25.9 42.0-54.0 [facility] HospitalYbtojedFKJNXUETXE5652-06-05 09:42:00 Test Item Value Reference Range Interpretation Comments MCV (test code = MCV) 85.7 80.0-94.0 [facility] HospitalUjnsjabLDTDCAXONJ0009-36-46 09:42:00 Test Item Value Reference Range Interpretation Comments MCH (test code = MCH) 30.0 pg 27.0-31.0 [facility] HospitalWunrwpwNOORBDHYDG6695-79-93 09:42:00 Test Item Value Reference Range Interpretation Comments MCHC (test code = MCHC) 34.9 32.0-36.0 [facility] HospitalLzcmxmcZIUSWRLTMS7899-74-31 09:42:00 Test Item Value Reference Range Interpretation Comments RDW (test code = RDW) 14.8 11.5-14.5 [facility]YyrzrrkTCWJXRRFPC3407-17-23 09:42:00 Test Item Value Reference Range Interpretation Comments Platelet (test code = Platelet) 169 133-450 [facility] HospitalWfgboecUBUABAAJBE8856-16-96 09:42:00 Test Item Value Reference Range Interpretation Comments MPV (test code = MPV) 7.0 7.4-10.4 [facility]2020-11-04 09:42:00 Test Item Value Reference Range Interpretation Comments Glucose Lvl (test code = Glucose Lvl) 79 70-99 [place] [address]-11-04 09:42:00 Test Item Value Reference Range Interpretation Comments BUN (test code = BUN) 21 7-22 [place] 065730-11-04 09:42:00 Test Item Value Reference Range Interpretation Comments Creatinine Lvl (test code = Creatinine 7.93 0.50-1.40 Lvl) [place] 065730-11-04 09:42:00 Test Item Value Reference Range Interpretation Comments Sodium Lvl (test code = Sodium Lvl) 139 135-145 [place] [address]-11-04 09:42:00 Test Item Value Reference Range Interpretation Comments Potassium Lvl (test code = Potassium 3.2 3.5-5.1 Lvl) [place] [address]-11-04 09:42:00 Test Item Value Reference Range Interpretation Comments Chloride Lvl (test code = Chloride Lvl) 104 95-109 [place] [address]-11-04 09:42:00 Test Item Value Reference Range Interpretation Comments CO2 (test code = CO2) 27 24-32 [place] [address]-11-04 09:42:00 Test Item Value Reference Range Interpretation Comments Calcium Lvl (test code = Calcium Lvl) 8.8 8.5-10.5 [place] 065730-11-04 09:42:00 Test Item Value Reference Range Interpretation Comments AGAP (test code = AGAP) 11.2 10.0-20.0 [place] [address]-11-04 09:42:00 Test Item Value Reference Range Interpretation Comments eGFR (test code = eGFR) 7 [place] 799140-11-04 09:42:00 Test Item Value Reference Range Interpretation Comments Neutrophils # (test code = Neutrophils 4.7 1.5-8.1 #) [place] 799140-11-04 09:42:00 Test Item Value Reference Range Interpretation Comments Lymphocytes # (test code = Lymphocytes 1.2 1.0-5.5 #) [place] [address]-11-04 09:42:00 Test Item Value Reference Range Interpretation Comments Monocytes # (test code 0.2 See_Comment [Aut omated message] The = Monocytes #) system which generated this result tra nsmitted reference range : <=0.8. The reference r yared was not used to int erpret this result as normal/abnormal . [facility] CentralOueaqhwCFIMWIUPVG7787-40-80 09:42:00 Test Item Value Reference Range Interpretation Comments Eosinophils # (test code 0.2 See_Comment [A utomated message] The = Eosinophils #) system whic h generated this result tra nsmitted reference range : <=0.5. The reference r yared was not used to int erpret this result as normal/abnormal . [facility] CentralDowoncaHIGDBMUALE9935-47-05 09:42:00 Test Item Value Reference Range Interpretation Comments Segs (test code = Segs) 71.0 45.0-75.0 [facility] CentralFkswjoqYLGGTLPAND3489-54-37 09:42:00 Test Item Value Reference Range Interpretation Comments Bands (test code = 2.0 See_Comment [Automat ed message] The Bands) system which ge nerated this result transmit emerson reference range : <=11.0. The reference r yared was not used to interpr et this result as erinn l/abnormal. [facility] CentralLvvwmfbHXRQQSWDGO7040-71-00 09:42:00 Test Item Value Reference Range Interpretation Comments Lymphocytes (test code = Lymphocytes) 18.0 20.0-40.0 [facility] CentralKbhyhnzRPLJFRGHPA8354-38-60 09:42:00 Test Item Value Reference Range Interpretation Comments Monocytes (test code = Monocytes) 3.0 2.0-12.0 [facility] CentralJgpoburJCIVWPIIXP6754-42-44 09:42:00 Test Item Value Reference Range Interpretation Comments Eosinophils (test code = 3.0 See_Comment [A utomated message] The Eosinophils) system which ge nerated this result tra nsmitted reference range : <=4.0. The reference r yared was not used to int erpret this result as normal/abnormal . [facility] CentralFkdalpvGLATMAGAWW1486-54-78 09:42:00 Test Item Value Reference Range Interpretation Comments Metamyelocytes (test code 2.0 See_Comment [ Automated message] = Metamyelocytes) The system which generated this result transmitted ref erence range: <=1.0. T he reference range was not used to int erpret this result as normal/abnormal . [facility] CentralAkatnvyYCRBMTNYPZ4207-92-13 09:42:00 Test Item Value Reference Range Interpretation Comments Myelocytes (test code = Myelocytes) 1.0 [facility] CentralWtsilkjEBHWJGECRC9528-06-11 09:42:00 Test Item Value Reference Range Interpretation Comments Atypical Lymphs (test code = Atypical 0.0 Lymphs) [facility] CentralQanamrbGSABJCUGNE6342-23-93 09:42:00 Test Item Value Reference Range Interpretation Comments NRBC (test code = NRBC) 1 [facility] CentralPtoyobeTGRKADIXLE5979-78-67 09:42:00 Test Item Value Reference Range Interpretation Comments RBC Morph (test code = Normal (08/12/20 3:42 RBC Morph) AM) [facility] CentralGuqltayCTTHCHXRQW2207-93-51 09:42:00 Test Item Value Reference Range Interpretation Comments Plt Morph (test code = Normal (08/12/20 3:42 Plt Morph) AM) [facility] CentralTckkmorKXHLFHSJNM7724-31-26 09:42:00 Test Item Value Reference Range Interpretation Comments Tot Cell Ct (test code = Tot Cell Ct) 100 1 [facility] CentralHgmiohaCWLKOYLBQC3688-43-41 09:42:00 Test Item Value Reference Range Interpretation Comments Polychrom (test code = Moderate *ABN*(08/12/20 Polychrom) 3:42 AM) [facility] CentralMpxpbizSVCGQMKDKA7289-41-92 09:42:00 Test Item Value Reference Range Interpretation Comments WBC (test code = WBC) 6.4 3.7-10.4 [facility] CentralHzbmpkxFTPYEJGQSW0074-65-09 09:42:00 Test Item Value Reference Range Interpretation Comments RBC (test code = RBC) 3.02 4.70-6.10 [facility] CentralNsinwupCVLBMILNNT2900-70-80 09:42:00 Test Item Value Reference Range Interpretation Comments Hgb (test code = Hgb) 9.0 14.0-18.0 [place] 799140-11-04 09:42:00 Test Item Value Reference Range Interpretation Comments Hct (test code = Hct) 25.9 42.0-54.0 [place] 799140-11-04 09:42:00 Test Item Value Reference Range Interpretation Comments MCV (test code = MCV) 85.7 80.0-94.0 [place] [address]-11-04 09:42:00 Test Item Value Reference Range Interpretation Comments MCH (test code = MCH) 30.0 pg 27.0-31.0 [place] [address]-11-04 09:42:00 Test Item Value Reference Range Interpretation Comments MCHC (test code = MCHC) 34.9 32.0-36.0 [place] [address]-11-04 09:42:00 Test Item Value Reference Range Interpretation Comments RDW (test code = RDW) 14.8 11.5-14.5 [place] [address]-11-04 09:42:00 Test Item Value Reference Range Interpretation Comments Platelet (test code = Platelet) 169 133-450 [place] [address]-11-04 09:42:00 Test Item Value Reference Range Interpretation Comments MPV (test code = MPV) 7.0 7.4-10.4 [place] 065730-11-03 09:35:00 Test Item Value Reference Range Interpretation Comments Glucose Lvl (test code = Glucose Lvl) 80 70-99 [place] 065730-11-03 09:35:00 Test Item Value Reference Range Interpretation Comments BUN (test code = BUN) 13 7-22 [place] [address]-11-03 09:35:00 Test Item Value Reference Range Interpretation Comments Creatinine Lvl (test code = Creatinine 5.51 0.50-1.40 Lvl) [place] 065730-11-03 09:35:00 Test Item Value Reference Range Interpretation Comments Sodium Lvl (test code = Sodium Lvl) 140 135-145 [place] 065730-11-03 09:35:00 Test Item Value Reference Range Interpretation Comments Potassium Lvl (test code = Potassium 3.2 3.5-5.1 Lvl) [place] [address]-11-03 09:35:00 Test Item Value Reference Range Interpretation Comments Chloride Lvl (test code = Chloride Lvl) 105 95-109 [place] [address]-11-03 09:35:00 Test Item Value Reference Range Interpretation Comments CO2 (test code = CO2) 28 24-32 [place] 065730-11-03 09:35:00 Test Item Value Reference Range Interpretation Comments Calcium Lvl (test code = Calcium Lvl) 8.4 8.5-10.5 [place] [address]-11-03 09:35:00 Test Item Value Reference Range Interpretation Comments AGAP (test code = AGAP) 10.2 10.0-20.0 [facility]2020-11-03 09:35:00 Test Item Value Reference Range Interpretation Comments eGFR (test code = eGFR) 10 [facility] CentralUiiwszfSMYPCHEHJP6975-63-01 09:35:00 Test Item Value Reference Range Interpretation Comments Segs (test code = Segs) 68.4 45.0-75.0 [facility] CentralWurmqxxFOZNFCGXML5167-45-21 09:35:00 Test Item Value Reference Range Interpretation Comments Lymphocytes (test code = Lymphocytes) 17.8 20.0-40.0 [facility] CentralSeiojhgVTSBHZQENO4231-72-72 09:35:00 Test Item Value Reference Range Interpretation Comments Monocytes (test code = Monocytes) 9.3 2.0-12.0 [facility] CentralGqvxdluJJAOXVCXTF6276-14-19 09:35:00 Test Item Value Reference Range Interpretation Comments Eosinophils (test code = 3.7 See_Comment [A utomated message] The Eosinophils) system which ge nerated this result tra nsmitted reference range : <=4.0. The reference r yared was not used to int erpret this result as normal/abnormal . [facility] CentralAuudndeYHSCVQVOBS3280-15-77 09:35:00 Test Item Value Reference Range Interpretation Comments Basophils (test code = 0.8 See_Comment [Aut omated message] The Basophils) system which ge nerated this result tra nsmitted reference range : <=1.0. The reference r yared was not used to int erpret this result as normal/abnormal . [facility] CentralLmpatcsURNAVFVVBV3848-71-03 09:35:00 Test Item Value Reference Range Interpretation Comments Neutrophils # (test code = Neutrophils 4.1 1.5-8.1 #) [place] [address]-11-03 09:35:00 Test Item Value Reference Range Interpretation Comments Lymphocytes # (test code = Lymphocytes 1.1 1.0-5.5 #) [place] [address]-11-03 09:35:00 Test Item Value Reference Range Interpretation Comments Monocytes # (test code 0.6 See_Comment [Aut omated message] The = Monocytes #) system which generated this result tra nsmitted reference range : <=0.8. The reference r yared was not used to int erpret this result as normal/abnormal . [facility] CentralTprrtezZYPPNPWOXK6632-32-31 09:35:00 Test Item Value Reference Range Interpretation Comments Eosinophils # (test code 0.2 See_Comment [A utomated message] The = Eosinophils #) system whic h generated this result tra nsmitted reference range : <=0.5. The reference r yared was not used to int erpret this result as normal/abnormal . [facility] CentralJibusyeXRUZWHVNBB9357-98-97 09:35:00 Test Item Value Reference Range Interpretation Comments WBC (test code = WBC) 6.0 3.7-10.4 [facility] CentralJzibblcAYWYXZYMGB9734-52-16 09:35:00 Test Item Value Reference Range Interpretation Comments RBC (test code = RBC) 2.84 4.70-6.10 [facility] CentralLbyggtlOSFLDUKRDH6152-40-74 09:35:00 Test Item Value Reference Range Interpretation Comments Hgb (test code = Hgb) 8.1 14.0-18.0 [facility] CentralGpfiursENNCGTJEHQ1574-47-28 09:35:00 Test Item Value Reference Range Interpretation Comments Hct (test code = Hct) 24.2 42.0-54.0 [facility] CentralRihkfycYLGOAJIOYI1188-08-54 09:35:00 Test Item Value Reference Range Interpretation Comments MCV (test code = MCV) 85.3 80.0-94.0 [facility] CentralCuhthdwMCFRFOIWAM7798-06-58 09:35:00 Test Item Value Reference Range Interpretation Comments MCH (test code = MCH) 28.7 pg 27.0-31.0 [facility] CentralXwpcetuICSUXPTJUG1544-26-78 09:35:00 Test Item Value Reference Range Interpretation Comments MCHC (test code = MCHC) 33.6 32.0-36.0 [facility] CentralFbsoqffMTGRDETANI3919-18-06 09:35:00 Test Item Value Reference Range Interpretation Comments RDW (test code = RDW) 14.5 11.5-14.5 [facility] CentralBsxjfzhPSOJKWJMIX4590-64-15 09:35:00 Test Item Value Reference Range Interpretation Comments Platelet (test code = Platelet) 171 133-450 [facility] CentralIsqslydQEHOSKHTCM4265-27-25 09:35:00 Test Item Value Reference Range Interpretation Comments MPV (test code = MPV) 7.4 7.4-10.4 [facility]2020-11-03 09:35:00 Test Item Value Reference Range Interpretation Comments Glucose Lvl (test code = Glucose Lvl) 80 70-99 [place] 065730-11-03 09:35:00 Test Item Value Reference Range Interpretation Comments BUN (test code = BUN) 13 7-22 [place] 065730-11-03 09:35:00 Test Item Value Reference Range Interpretation Comments Creatinine Lvl (test code = Creatinine 5.51 0.50-1.40 Lvl) [place] 065730-11-03 09:35:00 Test Item Value Reference Range Interpretation Comments Sodium Lvl (test code = Sodium Lvl) 140 135-145 [place] 065730-11-03 09:35:00 Test Item Value Reference Range Interpretation Comments Potassium Lvl (test code = Potassium 3.2 3.5-5.1 Lvl) [facility]2020-11-03 09:35:00 Test Item Value Reference Range Interpretation Comments Chloride Lvl (test code = Chloride Lvl) 105 95-109 [place] 065730-11-03 09:35:00 Test Item Value Reference Range Interpretation Comments CO2 (test code = CO2) 28 24-32 [place] 065730-11-03 09:35:00 Test Item Value Reference Range Interpretation Comments Calcium Lvl (test code = Calcium Lvl) 8.4 8.5-10.5 [facility]2020-11-03 09:35:00 Test Item Value Reference Range Interpretation Comments AGAP (test code = AGAP) 10.2 10.0-20.0 [facility]2020-11-03 09:35:00 Test Item Value Reference Range Interpretation Comments eGFR (test code = eGFR) 10 [facility]ti[facility]fwSMQDJVENLW9930-89-57 09:35:00 Test Item Value Reference Range Interpretation Comments Segs (test code = Segs) 68.4 45.0-75.0 [place] 799140-11-03 09:35:00 Test Item Value Reference Range Interpretation Comments Lymphocytes (test code = Lymphocytes) 17.8 20.0-40.0 [place] 799140-11-03 09:35:00 Test Item Value Reference Range Interpretation Comments Monocytes (test code = Monocytes) 9.3 2.0-12.0 [place] 799140-11-03 09:35:00 Test Item Value Reference Range Interpretation Comments Eosinophils (test code = 3.7 See_Comment [A utomated message] The Eosinophils) system which ge nerated this result tra nsmitted reference range : <=4.0. The reference r yared was not used to int erpret this result as normal/abnormal . [place] [address]-11-03 09:35:00 Test Item Value Reference Range Interpretation Comments Basophils (test code = 0.8 See_Comment [Aut omated message] The Basophils) system which ge nerated this result tra nsmitted reference range : <=1.0. The reference r yared was not used to int erpret this result as normal/abnormal . [place] 799140-11-03 09:35:00 Test Item Value Reference Range Interpretation Comments Neutrophils # (test code = Neutrophils 4.1 1.5-8.1 #) [facility] CentralXxcensaZKCWXUCJJR5786-93-81 09:35:00 Test Item Value Reference Range Interpretation Comments Lymphocytes # (test code = Lymphocytes 1.1 1.0-5.5 #) [place] [address]-11-03 09:35:00 Test Item Value Reference Range Interpretation Comments Monocytes # (test code 0.6 See_Comment [Aut omated message] The = Monocytes #) system which generated this result tra nsmitted reference range : <=0.8. The reference r yared was not used to int erpret this result as normal/abnormal . [facility] CentralVaaaxqrJLTCTBIRSK5754-31-09 09:35:00 Test Item Value Reference Range Interpretation Comments Eosinophils # (test code 0.2 See_Comment [A utomated message] The = Eosinophils #) system whic h generated this result tra nsmitted reference range : <=0.5. The reference r yared was not used to int erpret this result as normal/abnormal . [facility] CentralSdnxhgwBNDIDRIPIE1829-27-21 09:35:00 Test Item Value Reference Range Interpretation Comments WBC (test code = WBC) 6.0 3.7-10.4 [place] [address]-11-03 09:35:00 Test Item Value Reference Range Interpretation Comments RBC (test code = RBC) 2.84 4.70-6.10 [place] [address]-11-03 09:35:00 Test Item Value Reference Range Interpretation Comments Hgb (test code = Hgb) 8.1 14.0-18.0 [place] [address]-11-03 09:35:00 Test Item Value Reference Range Interpretation Comments Hct (test code = Hct) 24.2 42.0-54.0 [place] [address]-11-03 09:35:00 Test Item Value Reference Range Interpretation Comments MCV (test code = MCV) 85.3 80.0-94.0 [place] [address]-11-03 09:35:00 Test Item Value Reference Range Interpretation Comments MCH (test code = MCH) 28.7 pg 27.0-31.0 [place] [address]-11-03 09:35:00 Test Item Value Reference Range Interpretation Comments MCHC (test code = MCHC) 33.6 32.0-36.0 [facility] CentralHfihmudCNPXGCOYQK4002-44-44 09:35:00 Test Item Value Reference Range Interpretation Comments RDW (test code = RDW) 14.5 11.5-14.5 [place] [address]-11-03 09:35:00 Test Item Value Reference Range Interpretation Comments Platelet (test code = Platelet) 171 133-450 [place] [address]-11-03 09:35:00 Test Item Value Reference Range Interpretation Comments MPV (test code = MPV) 7.4 7.4-10.4 [facility]2020-11-03 09:35:00 Test Item Value Reference Range Interpretation Comments Glucose Lvl (test code = Glucose Lvl) 80 70-99 [facility]2020-11-03 09:35:00 Test Item Value Reference Range Interpretation Comments BUN (test code = BUN) 13 7-22 [place] [address]-11-03 09:35:00 Test Item Value Reference Range Interpretation Comments Creatinine Lvl (test code = Creatinine 5.51 0.50-1.40 Lvl) [facility]2020-11-03 09:35:00 Test Item Value Reference Range Interpretation Comments Sodium Lvl (test code = Sodium Lvl) 140 135-145 [place] 065730-11-03 09:35:00 Test Item Value Reference Range Interpretation Comments Potassium Lvl (test code = Potassium 3.2 3.5-5.1 Lvl) [place] 065730-11-03 09:35:00 Test Item Value Reference Range Interpretation Comments Chloride Lvl (test code = Chloride Lvl) 105 95-109 [place] [address]-11-03 09:35:00 Test Item Value Reference Range Interpretation Comments CO2 (test code = CO2) 28 24-32 [place] [address]-11-03 09:35:00 Test Item Value Reference Range Interpretation Comments Calcium Lvl (test code = Calcium Lvl) 8.4 8.5-10.5 [place] [address]-11-03 09:35:00 Test Item Value Reference Range Interpretation Comments AGAP (test code = AGAP) 10.2 10.0-20.0 [place] [address]-11-03 09:35:00 Test Item Value Reference Range Interpretation Comments eGFR (test code = eGFR) 10 [place] [address]-11-03 09:35:00 Test Item Value Reference Range Interpretation Comments Segs (test code = Segs) 68.4 45.0-75.0 [place] [address]-11-03 09:35:00 Test Item Value Reference Range Interpretation Comments Lymphocytes (test code = Lymphocytes) 17.8 20.0-40.0 [place] [address]-11-03 09:35:00 Test Item Value Reference Range Interpretation Comments Monocytes (test code = Monocytes) 9.3 2.0-12.0 [place] [address]-11-03 09:35:00 Test Item Value Reference Range Interpretation Comments Eosinophils (test code = 3.7 See_Comment [A utomated message] The Eosinophils) system which ge nerated this result tra nsmitted reference range : <=4.0. The reference r yared was not used to int erpret this result as normal/abnormal . [place] [address]-11-03 09:35:00 Test Item Value Reference Range Interpretation Comments Basophils (test code = 0.8 See_Comment [Aut omated message] The Basophils) system which ge nerated this result tra nsmitted reference range : <=1.0. The reference r yared was not used to int erpret this result as normal/abnormal . [place] [address]-11-03 09:35:00 Test Item Value Reference Range Interpretation Comments Neutrophils # (test code = Neutrophils 4.1 1.5-8.1 #) [facility] CentralOqwglelBYBVWAKSYL0285-95-29 09:35:00 Test Item Value Reference Range Interpretation Comments Lymphocytes # (test code = Lymphocytes 1.1 1.0-5.5 #) [facility] CentralVdajbczXKLXZRXIQD0234-95-87 09:35:00 Test Item Value Reference Range Interpretation Comments Monocytes # (test code 0.6 See_Comment [Aut omated message] The = Monocytes #) system which generated this result tra nsmitted reference range : <=0.8. The reference r yared was not used to int erpret this result as normal/abnormal . [facility] CentralRokwvriCZCBEVRRXR6735-52-47 09:35:00 Test Item Value Reference Range Interpretation Comments Eosinophils # (test code 0.2 See_Comment [A utomated message] The = Eosinophils #) system whic h generated this result tra nsmitted reference range : <=0.5. The reference r yared was not used to int erpret this result as normal/abnormal . [facility] CentralYgvvbhcIAMSABYVHE5846-46-30 09:35:00 Test Item Value Reference Range Interpretation Comments WBC (test code = WBC) 6.0 3.7-10.4 [facility] CentralJmsylaoGMNHTBFMNG6099-38-31 09:35:00 Test Item Value Reference Range Interpretation Comments RBC (test code = RBC) 2.84 4.70-6.10 [facility] CentralUlzmvspIVRUQOMLXW6239-20-68 09:35:00 Test Item Value Reference Range Interpretation Comments Hgb (test code = Hgb) 8.1 14.0-18.0 [place] 799140-11-03 09:35:00 Test Item Value Reference Range Interpretation Comments Hct (test code = Hct) 24.2 42.0-54.0 [place] 799140-11-03 09:35:00 Test Item Value Reference Range Interpretation Comments MCV (test code = MCV) 85.3 80.0-94.0 [place] 799140-11-03 09:35:00 Test Item Value Reference Range Interpretation Comments MCH (test code = MCH) 28.7 pg 27.0-31.0 [place] 799140-11-03 09:35:00 Test Item Value Reference Range Interpretation Comments MCHC (test code = MCHC) 33.6 32.0-36.0 [facility] CentralFypesbgZNTLVHPTIH5125-12-59 09:35:00 Test Item Value Reference Range Interpretation Comments RDW (test code = RDW) 14.5 11.5-14.5 [place] 799140-11-03 09:35:00 Test Item Value Reference Range Interpretation Comments Platelet (test code = Platelet) 171 133-450 [facility] CentralVhcgdqiCCEVRJAVYL7603-73-89 09:35:00 Test Item Value Reference Range Interpretation Comments MPV (test code = MPV) 7.4 7.4-10.4 [facility]2020-11-02 09:39:00 Test Item Value Reference Range Interpretation Comments Glucose Lvl (test code = Glucose Lvl) 110 70-99 [facility]2020-11-02 09:39:00 Test Item Value Reference Range Interpretation Comments BUN (test code = BUN) 21 7-22 [facility]2020-11-02 09:39:00 Test Item Value Reference Range Interpretation Comments Creatinine Lvl (test code = Creatinine 6.77 0.50-1.40 Lvl) [facility]2020-11-02 09:39:00 Test Item Value Reference Range Interpretation Comments Sodium Lvl (test code = Sodium Lvl) 139 135-145 [facility]2020-11-02 09:39:00 Test Item Value Reference Range Interpretation Comments Potassium Lvl (test code = Potassium 3.5 3.5-5.1 Lvl) [facility]2020-11-02 09:39:00 Test Item Value Reference Range Interpretation Comments Chloride Lvl (test code = Chloride Lvl) 104 95-109 [place] 065730-11-02 09:39:00 Test Item Value Reference Range Interpretation Comments CO2 (test code = CO2) 29 24-32 [facility]2020-11-02 09:39:00 Test Item Value Reference Range Interpretation Comments AGAP (test code = AGAP) 9.5 10.0-20.0 [facility]2020-11-02 09:39:00 Test Item Value Reference Range Interpretation Comments Calcium Lvl (test code = Calcium Lvl) 7.9 8.5-10.5 [facility]2020-11-02 09:39:00 Test Item Value Reference Range Interpretation Comments eGFR (test code = eGFR) 8 [place] 799140-11-02 09:39:00 Test Item Value Reference Range Interpretation Comments Neutrophils # (test code = Neutrophils 3.8 1.5-8.1 #) [place] [address]-11-02 09:39:00 Test Item Value Reference Range Interpretation Comments Lymphocytes # (test code = Lymphocytes 1.1 1.0-5.5 #) [place] [address]-11-02 09:39:00 Test Item Value Reference Range Interpretation Comments Monocytes # (test code 0.2 See_Comment [Aut omated message] The = Monocytes #) system which generated this result tra nsmitted reference range : <=0.8. The reference r yared was not used to int erpret this result as normal/abnormal . [place] [address]-11-02 09:39:00 Test Item Value Reference Range Interpretation Comments Eosinophils # (test code 0.4 See_Comment [A utomated message] The = Eosinophils #) system whic h generated this result tra nsmitted reference range : <=0.5. The reference r yared was not used to int erpret this result as normal/abnormal . [facility] CentralRbmiliaYORRXODOGB3620-75-10 09:39:00 Test Item Value Reference Range Interpretation Comments Segs (test code = Segs) 64.0 45.0-75.0 [place] 799140-11-02 09:39:00 Test Item Value Reference Range Interpretation Comments Bands (test code = 2.0 See_Comment [Automat ed message] The Bands) system which ge nerated this result transmit emerson reference range : <=11.0. The reference r yared was not used to interpr et this result as erinn l/abnormal. [facility] CentralZlooscoMJZFCFHAVX8767-21-46 09:39:00 Test Item Value Reference Range Interpretation Comments Lymphocytes (test code = Lymphocytes) 20.0 20.0-40.0 [place] [address]-11-02 09:39:00 Test Item Value Reference Range Interpretation Comments Monocytes (test code = Monocytes) 4.0 2.0-12.0 [place] [address]-11-02 09:39:00 Test Item Value Reference Range Interpretation Comments Eosinophils (test code = 7.0 See_Comment [A utomated message] The Eosinophils) system which ge nerated this result tra nsmitted reference range : <=4.0. The reference r yared was not used to int erpret this result as normal/abnormal . [facility] CentralAaizogyPPRVJTKRLU0433-08-50 09:39:00 Test Item Value Reference Range Interpretation Comments Myelocytes (test code = Myelocytes) 3.0 [facility] CentralXmqvuuxOMQWEMIQZO7806-85-58 09:39:00 Test Item Value Reference Range Interpretation Comments Atypical Lymphs (test code = Atypical 0.0 Lymphs) [facility] CentralQfxmcodOWEVFMLCLV8874-72-78 09:39:00 Test Item Value Reference Range Interpretation Comments NRBC (test code = NRBC) 1 [facility] CentralRpvokouZUGOUTYYVQ7108-27-97 09:39:00 Test Item Value Reference Range Interpretation Comments RBC Morph (test code = Normal (08/10/20 3:39 RBC Morph) AM) [facility] CentralQajpzfqINPUMFCOIG7815-35-83 09:39:00 Test Item Value Reference Range Interpretation Comments Plt Morph (test code = Normal (08/10/20 3:39 Plt Morph) AM) [facility] CentralDbcjhvyRYQWQDUIIY4469-45-15 09:39:00 Test Item Value Reference Range Interpretation Comments WBC (test code = WBC) 5.7 3.7-10.4 [facility] CentralIejhuhkLUCCWXJSLD5336-96-40 09:39:00 Test Item Value Reference Range Interpretation Comments RBC (test code = RBC) 2.61 4.70-6.10 [facility] CentralJpamiacNRYHHQJOYR2559-20-36 09:39:00 Test Item Value Reference Range Interpretation Comments Hgb (test code = Hgb) 7.5 14.0-18.0 [place] 799140-11-02 09:39:00 Test Item Value Reference Range Interpretation Comments Hct (test code = Hct) 22.3 42.0-54.0 [facility] CentralIjgaossDTNVJGPOIO4341-90-50 09:39:00 Test Item Value Reference Range Interpretation Comments MCV (test code = MCV) 85.6 80.0-94.0 [facility] CentralOwlmdznCYEBMNMABQ5701-89-12 09:39:00 Test Item Value Reference Range Interpretation Comments MCH (test code = MCH) 28.8 pg 27.0-31.0 [place] [address]-11-02 09:39:00 Test Item Value Reference Range Interpretation Comments MCHC (test code = MCHC) 33.6 32.0-36.0 [place] 799140-11-02 09:39:00 Test Item Value Reference Range Interpretation Comments RDW (test code = RDW) 13.9 11.5-14.5 [place] [address]-11-02 09:39:00 Test Item Value Reference Range Interpretation Comments Platelet (test code = Platelet) 164 133-450 [facility] CentralWhsewpfAYGKCXAILW7127-40-05 09:39:00 Test Item Value Reference Range Interpretation Comments MPV (test code = MPV) 7.5 7.4-10.4 [facility]2020-11-02 09:39:00 Test Item Value Reference Range Interpretation Comments Glucose Lvl (test code = Glucose Lvl) 110 70-99 [facility]2020-11-02 09:39:00 Test Item Value Reference Range Interpretation Comments BUN (test code = BUN) 21 7-22 [place] 065730-11-02 09:39:00 Test Item Value Reference Range Interpretation Comments Creatinine Lvl (test code = Creatinine 6.77 0.50-1.40 Lvl) [facility]2020-11-02 09:39:00 Test Item Value Reference Range Interpretation Comments Sodium Lvl (test code = Sodium Lvl) 139 135-145 [place] 065730-11-02 09:39:00 Test Item Value Reference Range Interpretation Comments Potassium Lvl (test code = Potassium 3.5 3.5-5.1 Lvl) [facility]2020-11-02 09:39:00 Test Item Value Reference Range Interpretation Comments Chloride Lvl (test code = Chloride Lvl) 104 95-109 [place] 065730-11-02 09:39:00 Test Item Value Reference Range Interpretation Comments CO2 (test code = CO2) 29 24-32 [facility]2020-11-02 09:39:00 Test Item Value Reference Range Interpretation Comments AGAP (test code = AGAP) 9.5 10.0-20.0 [place] 065730-11-02 09:39:00 Test Item Value Reference Range Interpretation Comments Calcium Lvl (test code = Calcium Lvl) 7.9 8.5-10.5 [facility]2020-11-02 09:39:00 Test Item Value Reference Range Interpretation Comments eGFR (test code = eGFR) 8 [facility] CentralGfgcivlXJUACVGLYT3788-86-29 09:39:00 Test Item Value Reference Range Interpretation Comments Neutrophils # (test code = Neutrophils 3.8 1.5-8.1 #) [facility] CentralQgstojbUKQKADCKTA6465-72-33 09:39:00 Test Item Value Reference Range Interpretation Comments Lymphocytes # (test code = Lymphocytes 1.1 1.0-5.5 #) [place] [address]-11-02 09:39:00 Test Item Value Reference Range Interpretation Comments Monocytes # (test code 0.2 See_Comment [Aut omated message] The = Monocytes #) system which generated this result tra nsmitted reference range : <=0.8. The reference r yared was not used to int erpret this result as normal/abnormal . [place] 799140-11-02 09:39:00 Test Item Value Reference Range Interpretation Comments Eosinophils # (test code 0.4 See_Comment [A utomated message] The = Eosinophils #) system whic h generated this result tra nsmitted reference range : <=0.5. The reference r yared was not used to int erpret this result as normal/abnormal . [facility] CentralCoqctxgQFSBMQBPTN6561-28-48 09:39:00 Test Item Value Reference Range Interpretation Comments Segs (test code = Segs) 64.0 45.0-75.0 [facility] CentralYslnncbJDREDTIOQG7727-84-30 09:39:00 Test Item Value Reference Range Interpretation Comments Bands (test code = 2.0 See_Comment [Automat ed message] The Bands) system which ge nerated this result transmit emerson reference range : <=11.0. The reference r yared was not used to interpr et this result as erinn l/abnormal. [facility] CentralOihtywdIKMWHELVGO4292-72-06 09:39:00 Test Item Value Reference Range Interpretation Comments Lymphocytes (test code = Lymphocytes) 20.0 20.0-40.0 [place] [address]-11-02 09:39:00 Test Item Value Reference Range Interpretation Comments Monocytes (test code = Monocytes) 4.0 2.0-12.0 [place] [address]-11-02 09:39:00 Test Item Value Reference Range Interpretation Comments Eosinophils (test code = 7.0 See_Comment [A utomated message] The Eosinophils) system which ge nerated this result tra nsmitted reference range : <=4.0. The reference r yared was not used to int erpret this result as normal/abnormal . [facility] CentralKtqdoatXKHBTFCLWM7223-87-72 09:39:00 Test Item Value Reference Range Interpretation Comments Myelocytes (test code = Myelocytes) 3.0 [place] 799140-11-02 09:39:00 Test Item Value Reference Range Interpretation Comments Atypical Lymphs (test code = Atypical 0.0 Lymphs) [place] 799140-11-02 09:39:00 Test Item Value Reference Range Interpretation Comments NRBC (test code = NRBC) 1 [place] 799140-11-02 09:39:00 Test Item Value Reference Range Interpretation Comments RBC Morph (test code = Normal (08/10/20 3:39 RBC Morph) AM) [facility] CentralSozmcrqXVATQJMXPN1284-66-37 09:39:00 Test Item Value Reference Range Interpretation Comments Plt Morph (test code = Normal (08/10/20 3:39 Plt Morph) AM) [facility] CentralRkxgmtgKBUDVRRUAT1521-92-50 09:39:00 Test Item Value Reference Range Interpretation Comments WBC (test code = WBC) 5.7 3.7-10.4 [place] 799140-11-02 09:39:00 Test Item Value Reference Range Interpretation Comments RBC (test code = RBC) 2.61 4.70-6.10 [facility] CentralAdsdpxiYVMVXZWDUN1212-34-83 09:39:00 Test Item Value Reference Range Interpretation Comments Hgb (test code = Hgb) 7.5 14.0-18.0 [place] [address]-11-02 09:39:00 Test Item Value Reference Range Interpretation Comments Hct (test code = Hct) 22.3 42.0-54.0 [place] 799140-11-02 09:39:00 Test Item Value Reference Range Interpretation Comments MCV (test code = MCV) 85.6 80.0-94.0 [place] [address]-11-02 09:39:00 Test Item Value Reference Range Interpretation Comments MCH (test code = MCH) 28.8 pg 27.0-31.0 [facility] CentralMikxpdvEEXSWGEQBL4036-50-65 09:39:00 Test Item Value Reference Range Interpretation Comments MCHC (test code = MCHC) 33.6 32.0-36.0 [facility] CentralNkatvgsEEHSBQAMZZ1162-78-00 09:39:00 Test Item Value Reference Range Interpretation Comments RDW (test code = RDW) 13.9 11.5-14.5 [facility] CentralMpxsylzUTXAQJKGSL2767-88-07 09:39:00 Test Item Value Reference Range Interpretation Comments Platelet (test code = Platelet) 164 133-450 [facility] CentralWnsnfpbMTTIQBOXKE4657-38-35 09:39:00 Test Item Value Reference Range Interpretation Comments MPV (test code = MPV) 7.5 7.4-10.4 [facility]2020-11-02 09:39:00 Test Item Value Reference Range Interpretation Comments Glucose Lvl (test code = Glucose Lvl) 110 70-99 [facility]2020-11-02 09:39:00 Test Item Value Reference Range Interpretation Comments BUN (test code = BUN) 21 7-22 [facility]2020-11-02 09:39:00 Test Item Value Reference Range Interpretation Comments Creatinine Lvl (test code = Creatinine 6.77 0.50-1.40 Lvl) [facility]2020-11-02 09:39:00 Test Item Value Reference Range Interpretation Comments Sodium Lvl (test code = Sodium Lvl) 139 135-145 [facility]2020-11-02 09:39:00 Test Item Value Reference Range Interpretation Comments Potassium Lvl (test code = Potassium 3.5 3.5-5.1 Lvl) [facility]2020-11-02 09:39:00 Test Item Value Reference Range Interpretation Comments Chloride Lvl (test code = Chloride Lvl) 104 95-109 [facility]2020-11-02 09:39:00 Test Item Value Reference Range Interpretation Comments CO2 (test code = CO2) 29 24-32 [place] 065730-11-02 09:39:00 Test Item Value Reference Range Interpretation Comments AGAP (test code = AGAP) 9.5 10.0-20.0 [facility]2020-11-02 09:39:00 Test Item Value Reference Range Interpretation Comments Calcium Lvl (test code = Calcium Lvl) 7.9 8.5-10.5 [facility]2020-11-02 09:39:00 Test Item Value Reference Range Interpretation Comments eGFR (test code = eGFR) 8 [facility] CentralQfchzejPTYKLRQGTT5409-47-01 09:39:00 Test Item Value Reference Range Interpretation Comments Neutrophils # (test code = Neutrophils 3.8 1.5-8.1 #) [facility] CentralAxttkrxXZIZAJQUMU5091-16-69 09:39:00 Test Item Value Reference Range Interpretation Comments Lymphocytes # (test code = Lymphocytes 1.1 1.0-5.5 #) [place] 799140-11-02 09:39:00 Test Item Value Reference Range Interpretation Comments Monocytes # (test code 0.2 See_Comment [Aut omated message] The = Monocytes #) system which generated this result tra nsmitted reference range : <=0.8. The reference r yared was not used to int erpret this result as normal/abnormal . [place] 799140-11-02 09:39:00 Test Item Value Reference Range Interpretation Comments Eosinophils # (test code 0.4 See_Comment [A utomated message] The = Eosinophils #) system whic h generated this result tra nsmitted reference range : <=0.5. The reference r yared was not used to int erpret this result as normal/abnormal . [facility]PmwzreyMWAXICHHMY2478-52-78 09:39:00 Test Item Value Reference Range Interpretation Comments Segs (test code = Segs) 64.0 45.0-75.0 [facility] CentralBdgzdjcLQEVZJJENJ4276-36-60 09:39:00 Test Item Value Reference Range Interpretation Comments Bands (test code = 2.0 See_Comment [Automat ed message] The Bands) system which ge nerated this result transmit emerson reference range : <=11.0. The reference r yared was not used to interpr et this result as erinn l/abnormal. [place] [address]-11-02 09:39:00 Test Item Value Reference Range Interpretation Comments Lymphocytes (test code = Lymphocytes) 20.0 20.0-40.0 [place] [address]-11-02 09:39:00 Test Item Value Reference Range Interpretation Comments Monocytes (test code = Monocytes) 4.0 2.0-12.0 [facility] CentralMxvfbfoADFEPKWAIN0599-83-28 09:39:00 Test Item Value Reference Range Interpretation Comments Eosinophils (test code = 7.0 See_Comment [A utomated message] The Eosinophils) system which ge nerated this result tra nsmitted reference range : <=4.0. The reference r yared was not used to int erpret this result as normal/abnormal . [facility] CentralZqmcfskDBNVNVJPSV4467-46-50 09:39:00 Test Item Value Reference Range Interpretation Comments Myelocytes (test code = Myelocytes) 3.0 [place] 799140-11-02 09:39:00 Test Item Value Reference Range Interpretation Comments Atypical Lymphs (test code = Atypical 0.0 Lymphs) [place] 799140-11-02 09:39:00 Test Item Value Reference Range Interpretation Comments NRBC (test code = NRBC) 1 [facility] CentralLrqitbiICKKBQALFQ4732-43-11 09:39:00 Test Item Value Reference Range Interpretation Comments RBC Morph (test code = Normal (08/10/20 3:39 RBC Morph) AM) [place] [address]-11-02 09:39:00 Test Item Value Reference Range Interpretation Comments Plt Morph (test code = Normal (08/10/20 3:39 Plt Morph) AM) [facility] CentralLlsplmlCFGOALRMUT8129-66-52 09:39:00 Test Item Value Reference Range Interpretation Comments WBC (test code = WBC) 5.7 3.7-10.4 [facility] CentralEhzbcydQNWOVEJHXP5745-22-29 09:39:00 Test Item Value Reference Range Interpretation Comments RBC (test code = RBC) 2.61 4.70-6.10 [place] 799140-11-02 09:39:00 Test Item Value Reference Range Interpretation Comments Hgb (test code = Hgb) 7.5 14.0-18.0 [place] 799140-11-02 09:39:00 Test Item Value Reference Range Interpretation Comments Hct (test code = Hct) 22.3 42.0-54.0 [place] 799140-11-02 09:39:00 Test Item Value Reference Range Interpretation Comments MCV (test code = MCV) 85.6 80.0-94.0 [place] [address]-11-02 09:39:00 Test Item Value Reference Range Interpretation Comments MCH (test code = MCH) 28.8 pg 27.0-31.0 [facility] CentralRitpjjtVXTVOUCZSV1480-22-77 09:39:00 Test Item Value Reference Range Interpretation Comments MCHC (test code = MCHC) 33.6 32.0-36.0 [facility] CentralMreohdvSRGYIYFDNY7599-72-93 09:39:00 Test Item Value Reference Range Interpretation Comments RDW (test code = RDW) 13.9 11.5-14.5 [facility] CentralKnsocmxHQZSGJUEZS8442-84-27 09:39:00 Test Item Value Reference Range Interpretation Comments Platelet (test code = Platelet) 164 133-450 [facility] CentralTmoincxAZBINIFQVB9015-30-65 09:39:00 Test Item Value Reference Range Interpretation Comments MPV (test code = MPV) 7.5 7.4-10.4 [facility] CentralCpjhjjvHRKEWGFTNH2917-73-52 16:40:00 Test Item Value Reference Range Interpretation Comments Basophils (test code = 0.6 See_Comment [Aut omated message] The Basophils) system which ge nerated this result tra nsmitted reference range : <=1.0. The reference r yared was not used to int erpret this result as normal/abnormal . [facility] CentralHiynhdgIPNXGKBDKD4884-08-68 16:40:00 Test Item Value Reference Range Interpretation Comments WBC (test code = WBC) 5.7 3.7-10.4 [facility] CentralOizzqpfJMIFLUJPVU7238-46-06 16:40:00 Test Item Value Reference Range Interpretation Comments RBC (test code = RBC) 2.82 4.70-6.10 [facility] CentralKzhqzggPRJTZNDJNJ8627-13-92 16:40:00 Test Item Value Reference Range Interpretation Comments Hgb (test code = Hgb) 8.0 14.0-18.0 [place] 799140-11-01 16:40:00 Test Item Value Reference Range Interpretation Comments Hct (test code = Hct) 24.2 42.0-54.0 [facility] CentralKeuuuipKAQSQSEMIC1219-00-07 16:40:00 Test Item Value Reference Range Interpretation Comments MCV (test code = MCV) 85.8 80.0-94.0 [facility] CentralGqjfrdxXRJVNCFQWB9965-22-72 16:40:00 Test Item Value Reference Range Interpretation Comments MCH (test code = MCH) 28.6 pg 27.0-31.0 [facility] CentralQxcsylcOMYBLVKGTP8726-81-11 16:40:00 Test Item Value Reference Range Interpretation Comments MCHC (test code = MCHC) 33.3 32.0-36.0 [facility] CentralZfiusinTOJPUULFOM9998-19-94 16:40:00 Test Item Value Reference Range Interpretation Comments RDW (test code = RDW) 14.1 11.5-14.5 [facility] CentralIaqkwggGMXMJAMBIU2196-48-27 16:40:00 Test Item Value Reference Range Interpretation Comments Platelet (test code = Platelet) 169 133-450 [facility] CentralLegjzplQNZHAAWSFH7428-26-71 16:40:00 Test Item Value Reference Range Interpretation Comments MPV (test code = MPV) 7.2 7.4-10.4 [place] [address]-11-01 16:40:00 Test Item Value Reference Range Interpretation Comments Segs (test code = Segs) 72.6 45.0-75.0 [facility] CentralOjjwonjGBAERKZBLT3449-31-36 16:40:00 Test Item Value Reference Range Interpretation Comments Lymphocytes (test code = Lymphocytes) 14.6 20.0-40.0 [place] 799140-11-01 16:40:00 Test Item Value Reference Range Interpretation Comments Monocytes (test code = Monocytes) 7.8 2.0-12.0 [place] [address]-11-01 16:40:00 Test Item Value Reference Range Interpretation Comments Eosinophils (test code = 4.4 See_Comment [A utomated message] The Eosinophils) system which ge nerated this result tra nsmitted reference range : <=4.0. The reference r yared was not used to int erpret this result as normal/abnormal . [facility] CentralUnvukxrXQBFSBUWUJ7140-06-98 16:40:00 Test Item Value Reference Range Interpretation Comments Neutrophils # (test code = Neutrophils 4.2 1.5-8.1 #) [place] 799140-11-01 16:40:00 Test Item Value Reference Range Interpretation Comments Lymphocytes # (test code = Lymphocytes 0.8 1.0-5.5 #) [place] 799140-11-01 16:40:00 Test Item Value Reference Range Interpretation Comments Monocytes # (test code 0.4 See_Comment [Aut omated message] The = Monocytes #) system which generated this result tra nsmitted reference range : <=0.8. The reference r yared was not used to int erpret this result as normal/abnormal . [facility] CentralNmbrznbBEUIZLZSSY8191-72-94 16:40:00 Test Item Value Reference Range Interpretation Comments Eosinophils # (test code 0.2 See_Comment [A utomated message] The = Eosinophils #) system whic h generated this result tra nsmitted reference range : <=0.5. The reference r yared was not used to int erpret this result as normal/abnormal . [facility]TlrdyxkYDLYVFYRNJ5492-73-90 16:40:00 Test Item Value Reference Range Interpretation Comments Hep B Core Ab (test code = Hep B NON-REACTIVE Core Ab) [facility]ViaygcyUHWKXQVBEL3111-16-90 16:40:00 Test Item Value Reference Range Interpretation Comments Hep Bs Ag (test code = Hep Bs NON-REACTIVE Ag) [facility] CenterFmmsbqhDKNCSJMVAY2681-99-40 16:40:00 Test Item Value Reference Range Interpretation Comments Hep Bs Ab (test code = Hep Bs Ab) 7 [facility] CentralNafrxiiMUUQYQAWYK5323-09-48 16:40:00 Test Item Value Reference Range Interpretation Comments Basophils (test code = 0.6 See_Comment [Aut omated message] The Basophils) system which ge nerated this result tra nsmitted reference range : <=1.0. The reference r yared was not used to int erpret this result as normal/abnormal . [facility] CentralMtnehqbCXGMIKVKNH8818-86-80 16:40:00 Test Item Value Reference Range Interpretation Comments WBC (test code = WBC) 5.7 3.7-10.4 [facility] CentralAxuodpxVJZASNDGCC7914-65-51 16:40:00 Test Item Value Reference Range Interpretation Comments RBC (test code = RBC) 2.82 4.70-6.10 [place] 799140-11-01 16:40:00 Test Item Value Reference Range Interpretation Comments Hgb (test code = Hgb) 8.0 14.0-18.0 [place] 799140-11-01 16:40:00 Test Item Value Reference Range Interpretation Comments Hct (test code = Hct) 24.2 42.0-54.0 [facility] CentralGypchloHFTINGVAWC7534-75-04 16:40:00 Test Item Value Reference Range Interpretation Comments MCV (test code = MCV) 85.8 80.0-94.0 [place] 799140-11-01 16:40:00 Test Item Value Reference Range Interpretation Comments MCH (test code = MCH) 28.6 pg 27.0-31.0 [place] 799140-11-01 16:40:00 Test Item Value Reference Range Interpretation Comments MCHC (test code = MCHC) 33.3 32.0-36.0 [place] 799140-11-01 16:40:00 Test Item Value Reference Range Interpretation Comments RDW (test code = RDW) 14.1 11.5-14.5 [place] 799140-11-01 16:40:00 Test Item Value Reference Range Interpretation Comments Platelet (test code = Platelet) 169 133-450 [place] 799140-11-01 16:40:00 Test Item Value Reference Range Interpretation Comments MPV (test code = MPV) 7.2 7.4-10.4 [place] 799140-11-01 16:40:00 Test Item Value Reference Range Interpretation Comments Segs (test code = Segs) 72.6 45.0-75.0 [place] 799140-11-01 16:40:00 Test Item Value Reference Range Interpretation Comments Lymphocytes (test code = Lymphocytes) 14.6 20.0-40.0 [place] [address]-11-01 16:40:00 Test Item Value Reference Range Interpretation Comments Monocytes (test code = Monocytes) 7.8 2.0-12.0 [place] [address]-11-01 16:40:00 Test Item Value Reference Range Interpretation Comments Eosinophils (test code = 4.4 See_Comment [A utomated message] The Eosinophils) system which ge nerated this result tra nsmitted reference range : <=4.0. The reference r yared was not used to int erpret this result as normal/abnormal . [facility] CentralUygsmrmMVODILGFXO9337-10-95 16:40:00 Test Item Value Reference Range Interpretation Comments Neutrophils # (test code = Neutrophils 4.2 1.5-8.1 #) [place] 799140-11-01 16:40:00 Test Item Value Reference Range Interpretation Comments Lymphocytes # (test code = Lymphocytes 0.8 1.0-5.5 #) [facility] CentralQzafaqsQCBRJDOVZI6154-69-08 16:40:00 Test Item Value Reference Range Interpretation Comments Monocytes # (test code 0.4 See_Comment [Aut omated message] The = Monocytes #) system which generated this result tra nsmitted reference range : <=0.8. The reference r yared was not used to int erpret this result as normal/abnormal . [facility] CentralNwydepsYQVPLIBSFI4687-37-09 16:40:00 Test Item Value Reference Range Interpretation Comments Eosinophils # (test code 0.2 See_Comment [A utomated message] The = Eosinophils #) system whic h generated this result tra nsmitted reference range : <=0.5. The reference r yared was not used to int erpret this result as normal/abnormal . [facility] CenterSpoojkdFXHLDMLVHD4364-54-27 16:40:00 Test Item Value Reference Range Interpretation Comments Hep B Core Ab (test code = Hep B NON-REACTIVE Core Ab) [facility] CenterTiymwjwKMNKSTWXUS9138-47-63 16:40:00 Test Item Value Reference Range Interpretation Comments Hep Bs Ag (test code = Hep Bs NON-REACTIVE Ag) [facility] CenterYadkhuvMKVTYZRDBT1713-30-30 16:40:00 Test Item Value Reference Range Interpretation Comments Hep Bs Ab (test code = Hep Bs Ab) 7 [facility] CentralKkrnyqkCQPGXDUDAB1783-30-09 16:40:00 Test Item Value Reference Range Interpretation Comments Basophils (test code = 0.6 See_Comment [Aut omated message] The Basophils) system which ge nerated this result tra nsmitted reference range : <=1.0. The reference r yared was not used to int erpret this result as normal/abnormal . [facility] CentralHioxjdwOTGNTWPPDD7421-09-82 16:40:00 Test Item Value Reference Range Interpretation Comments WBC (test code = WBC) 5.7 3.7-10.4 [place] 799140-11-01 16:40:00 Test Item Value Reference Range Interpretation Comments RBC (test code = RBC) 2.82 4.70-6.10 [place] 799140-11-01 16:40:00 Test Item Value Reference Range Interpretation Comments Hgb (test code = Hgb) 8.0 14.0-18.0 [facility] CentralPdhbgqtJXBKRITAEP4056-81-06 16:40:00 Test Item Value Reference Range Interpretation Comments Hct (test code = Hct) 24.2 42.0-54.0 [facility] CentralWcgruljPAIGFKUBYP5281-76-63 16:40:00 Test Item Value Reference Range Interpretation Comments MCV (test code = MCV) 85.8 80.0-94.0 [facility] CentralZexlhkdYRNEJENJZY4247-42-47 16:40:00 Test Item Value Reference Range Interpretation Comments MCH (test code = MCH) 28.6 pg 27.0-31.0 [facility] CentralMvmzcipLFGNOULJOX6208-37-94 16:40:00 Test Item Value Reference Range Interpretation Comments MCHC (test code = MCHC) 33.3 32.0-36.0 [facility] CentralTevmnydCARIJPEKIO7967-06-12 16:40:00 Test Item Value Reference Range Interpretation Comments RDW (test code = RDW) 14.1 11.5-14.5 [facility] CentralLnsxryaEMZZEMRSIA5636-72-66 16:40:00 Test Item Value Reference Range Interpretation Comments Platelet (test code = Platelet) 169 133-450 [facility] CentralAbpmjwrMRMJGEKIKQ1389-97-41 16:40:00 Test Item Value Reference Range Interpretation Comments MPV (test code = MPV) 7.2 7.4-10.4 [facility] CentralLtnxiueIDAGBOWOFC3326-06-95 16:40:00 Test Item Value Reference Range Interpretation Comments Segs (test code = Segs) 72.6 45.0-75.0 [facility] CentralXdjszolIRSHKMWVGO0995-51-47 16:40:00 Test Item Value Reference Range Interpretation Comments Lymphocytes (test code = Lymphocytes) 14.6 20.0-40.0 [facility] CentralOemjhqdMUVABPHYOQ6288-71-18 16:40:00 Test Item Value Reference Range Interpretation Comments Monocytes (test code = Monocytes) 7.8 2.0-12.0 [place] [address]-11-01 16:40:00 Test Item Value Reference Range Interpretation Comments Eosinophils (test code = 4.4 See_Comment [A utomated message] The Eosinophils) system which ge nerated this result tra nsmitted reference range : <=4.0. The reference r yared was not used to int erpret this result as normal/abnormal . [facility] CentralDiwinnqHVQCQSAESJ2664-44-21 16:40:00 Test Item Value Reference Range Interpretation Comments Neutrophils # (test code = Neutrophils 4.2 1.5-8.1 #) [facility] CentralIlngljkPRXONZJMSX7011-90-03 16:40:00 Test Item Value Reference Range Interpretation Comments Lymphocytes # (test code = Lymphocytes 0.8 1.0-5.5 #) [facility] CentralHkaghocNZLPWTEEBF3261-79-84 16:40:00 Test Item Value Reference Range Interpretation Comments Monocytes # (test code 0.4 See_Comment [Aut omated message] The = Monocytes #) system which generated this result tra nsmitted reference range : <=0.8. The reference r yared was not used to int erpret this result as normal/abnormal . [facility] CentralOetkutmAMWNAJOIAI7707-14-54 16:40:00 Test Item Value Reference Range Interpretation Comments Eosinophils # (test code 0.2 See_Comment [A utomated message] The = Eosinophils #) system whic h generated this result tra nsmitted reference range : <=0.5. The reference r yared was not used to int erpret this result as normal/abnormal . [facility] HospitalLlsjuurDHXJTQYXGW0987-32-08 16:40:00 Test Item Value Reference Range Interpretation Comments Hep B Core Ab (test code = Hep B NON-REACTIVE Core Ab) [facility] HospitalKuaqhkbROHXWRXSRI7183-47-65 16:40:00 Test Item Value Reference Range Interpretation Comments Hep Bs Ag (test code = Hep Bs NON-REACTIVE Ag) [facility] HospitalBazvvrsTMTZCCUXGA7105-73-03 16:40:00 Test Item Value Reference Range Interpretation Comments Hep Bs Ab (test code = Hep Bs Ab) 7 [facility]My[facility] JPLPU8400-81-48 14:48:00 Test Item Value Reference Range Interpretation Comments Total Protein (test code = Total 4.2 6.4-8.4 Protein) [facility]21[employer] GIAHG0831-83-95 14:48:00 Test Item Value Reference Range Interpretation Comments Albumin Lvl (test code = Albumin Lvl) 1.3 3.5-5.0 [facility] DIRAH3737-77-25 14:48:00 Test Item Value Reference Range Interpretation Comments ALT (test code = ALT) 14 See_Comment [Auto mated message] The system which ge nerated this result transmit emerson reference range : <=65. The reference range was not used to interpr et this result as erinn l/abnormal. [place] 065730-11-01 14:48:00 Test Item Value Reference Range Interpretation Comments AST (test code = AST) 17 See_Comment [Auto mated message] The system which ge nerated this result transmit emerson reference range : <=37. The reference range was not used to interpr et this result as erinn l/abnormal. [place] 065730-11-01 14:48:00 Test Item Value Reference Range Interpretation Comments Alk Phos (test code = Alk Phos) 92 39-136 [place] 065730-11-01 14:48:00 Test Item Value Reference Range Interpretation Comments Bili Total (test code = Bili Total) 0.5 0.2-1.3 [place] [address]-11-01 14:48:00 Test Item Value Reference Range Interpretation Comments B/C Ratio (test code = B/C Ratio) 3 1 6-25 [place] [address]-11-01 14:48:00 Test Item Value Reference Range Interpretation Comments Globulin (test code = Globulin) 2.9 2.7-4.2 [place] 065730-11-01 14:48:00 Test Item Value Reference Range Interpretation Comments A/G Ratio (test code = A/G Ratio) 0.4 1 0.7-1.6 [place] [address]-11-01 14:48:00 Test Item Value Reference Range Interpretation Comments Magnesium Lvl (test code = Magnesium 1.8 1.8-2.4 Lvl) [place] 065730-11-01 14:48:00 Test Item Value Reference Range Interpretation Comments Glucose Lvl (test code = Glucose Lvl) 70 70-99 [place] 065730-11-01 14:48:00 Test Item Value Reference Range Interpretation Comments BUN (test code = BUN) 25 7-22 [place] [address]-11-01 14:48:00 Test Item Value Reference Range Interpretation Comments Creatinine Lvl (test code = Creatinine 8.85 0.50-1.40 Lvl) [place] 065730-11-01 14:48:00 Test Item Value Reference Range Interpretation Comments Sodium Lvl (test code = Sodium Lvl) 139 135-145 [place] 065730-11-01 14:48:00 Test Item Value Reference Range Interpretation Comments Potassium Lvl (test code = Potassium 4.0 3.5-5.1 Lvl) [place] 065730-11-01 14:48:00 Test Item Value Reference Range Interpretation Comments Chloride Lvl (test code = Chloride Lvl) 100 95-109 [place] [address]-11-01 14:48:00 Test Item Value Reference Range Interpretation Comments CO2 (test code = CO2) 30 24-32 [place] [address]-11-01 14:48:00 Test Item Value Reference Range Interpretation Comments Calcium Lvl (test code = Calcium Lvl) 7.5 8.5-10.5 [place] [address]-11-01 14:48:00 Test Item Value Reference Range Interpretation Comments AGAP (test code = AGAP) 13.0 10.0-20.0 [place] [address]-11-01 14:48:00 Test Item Value Reference Range Interpretation Comments eGFR (test code = eGFR) 6 [place] [address]-11-01 14:48:00 Test Item Value Reference Range Interpretation Comments Total Protein (test code = Total 4.2 6.4-8.4 Protein) [place] [address]-11-01 14:48:00 Test Item Value Reference Range Interpretation Comments Albumin Lvl (test code = Albumin Lvl) 1.3 3.5-5.0 [place] 065730-11-01 14:48:00 Test Item Value Reference Range Interpretation Comments ALT (test code = ALT) 14 See_Comment [Auto mated message] The system which ge nerated this result transmit emerson reference range : <=65. The reference range was not used to interpr et this result as erinn l/abnormal. [place] [address]-11-01 14:48:00 Test Item Value Reference Range Interpretation Comments AST (test code = AST) 17 See_Comment [Auto mated message] The system which ge nerated this result transmit emerson reference range : <=37. The reference range was not used to interpr et this result as erinn l/abnormal. [place] [address]-11-01 14:48:00 Test Item Value Reference Range Interpretation Comments Alk Phos (test code = Alk Phos) 92 39-136 [place] [address]-11-01 14:48:00 Test Item Value Reference Range Interpretation Comments Bili Total (test code = Bili Total) 0.5 0.2-1.3 [place] 065730-11-01 14:48:00 Test Item Value Reference Range Interpretation Comments B/C Ratio (test code = B/C Ratio) 3 1 6-25 [place] [address]-11-01 14:48:00 Test Item Value Reference Range Interpretation Comments Globulin (test code = Globulin) 2.9 2.7-4.2 [place] 065730-11-01 14:48:00 Test Item Value Reference Range Interpretation Comments A/G Ratio (test code = A/G Ratio) 0.4 1 0.7-1.6 [place] [address]-11-01 14:48:00 Test Item Value Reference Range Interpretation Comments Magnesium Lvl (test code = Magnesium 1.8 1.8-2.4 Lvl) [place] 065730-11-01 14:48:00 Test Item Value Reference Range Interpretation Comments Glucose Lvl (test code = Glucose Lvl) 70 70-99 [place] 065730-11-01 14:48:00 Test Item Value Reference Range Interpretation Comments BUN (test code = BUN) 25 7-22 [place] 065730-11-01 14:48:00 Test Item Value Reference Range Interpretation Comments Creatinine Lvl (test code = Creatinine 8.85 0.50-1.40 Lvl) [place] 065730-11-01 14:48:00 Test Item Value Reference Range Interpretation Comments Sodium Lvl (test code = Sodium Lvl) 139 135-145 [place] 065730-11-01 14:48:00 Test Item Value Reference Range Interpretation Comments Potassium Lvl (test code = Potassium 4.0 3.5-5.1 Lvl) [place] 065730-11-01 14:48:00 Test Item Value Reference Range Interpretation Comments Chloride Lvl (test code = Chloride Lvl) 100 95-109 [place] 065730-11-01 14:48:00 Test Item Value Reference Range Interpretation Comments CO2 (test code = CO2) 30 24-32 [place] 065730-11-01 14:48:00 Test Item Value Reference Range Interpretation Comments Calcium Lvl (test code = Calcium Lvl) 7.5 8.5-10.5 [facility]2020-11-01 14:48:00 Test Item Value Reference Range Interpretation Comments AGAP (test code = AGAP) 13.0 10.0-20.0 [place] 065730-11-01 14:48:00 Test Item Value Reference Range Interpretation Comments eGFR (test code = eGFR) 6 [place] 065730-11-01 14:48:00 Test Item Value Reference Range Interpretation Comments Total Protein (test code = Total 4.2 6.4-8.4 Protein) [place] 065730-11-01 14:48:00 Test Item Value Reference Range Interpretation Comments Albumin Lvl (test code = Albumin Lvl) 1.3 3.5-5.0 [place] 065730-11-01 14:48:00 Test Item Value Reference Range Interpretation Comments ALT (test code = ALT) 14 See_Comment [Auto mated message] The system which ge nerated this result transmit emerson reference range : <=65. The reference range was not used to interpr et this result as erinn l/abnormal. [place] 065730-11-01 14:48:00 Test Item Value Reference Range Interpretation Comments AST (test code = AST) 17 See_Comment [Auto mated message] The system which ge nerated this result transmit emerson reference range : <=37. The reference range was not used to interpr et this result as erinn l/abnormal. [place] 065730-11-01 14:48:00 Test Item Value Reference Range Interpretation Comments Alk Phos (test code = Alk Phos) 92 39-136 [place] 065730-11-01 14:48:00 Test Item Value Reference Range Interpretation Comments Bili Total (test code = Bili Total) 0.5 0.2-1.3 [place] [address]-11-01 14:48:00 Test Item Value Reference Range Interpretation Comments B/C Ratio (test code = B/C Ratio) 3 1 6-25 [place] [address]-11-01 14:48:00 Test Item Value Reference Range Interpretation Comments Globulin (test code = Globulin) 2.9 2.7-4.2 [place] 065730-11-01 14:48:00 Test Item Value Reference Range Interpretation Comments A/G Ratio (test code = A/G Ratio) 0.4 1 0.7-1.6 [place] [address]-11-01 14:48:00 Test Item Value Reference Range Interpretation Comments Magnesium Lvl (test code = Magnesium 1.8 1.8-2.4 Lvl) [place] [address]-11-01 14:48:00 Test Item Value Reference Range Interpretation Comments Glucose Lvl (test code = Glucose Lvl) 70 70-99 [place] 065730-11-01 14:48:00 Test Item Value Reference Range Interpretation Comments BUN (test code = BUN) 25 7-22 [place] 065730-11-01 14:48:00 Test Item Value Reference Range Interpretation Comments Creatinine Lvl (test code = Creatinine 8.85 0.50-1.40 Lvl) [place] 065730-11-01 14:48:00 Test Item Value Reference Range Interpretation Comments Sodium Lvl (test code = Sodium Lvl) 139 135-145 [place] 065730-11-01 14:48:00 Test Item Value Reference Range Interpretation Comments Potassium Lvl (test code = Potassium 4.0 3.5-5.1 Lvl) [facility]2020-11-01 14:48:00 Test Item Value Reference Range Interpretation Comments Chloride Lvl (test code = Chloride Lvl) 100 95-109 [place] 065730-11-01 14:48:00 Test Item Value Reference Range Interpretation Comments CO2 (test code = CO2) 30 24-32 [place] 065730-11-01 14:48:00 Test Item Value Reference Range Interpretation Comments Calcium Lvl (test code = Calcium Lvl) 7.5 8.5-10.5 [place] 065730-11-01 14:48:00 Test Item Value Reference Range Interpretation Comments AGAP (test code = AGAP) 13.0 10.0-20.0 [place] 065730-11-01 14:48:00 Test Item Value Reference Range Interpretation Comments eGFR (test code = eGFR) 6 [place] 799140-11-01 10:41:00 Test Item Value Reference Range Interpretation Comments Hgb (test code = Hgb) 7.6 14.0-18.0 [facility]zdohfrRPCALARBJU7499-20-26 10:41:00 Test Item Value Reference Range Interpretation Comments Hgb (test code = Hgb) 7.6 14.0-18.0 [facility] CentralBviqxdwXSWRRZPSVO4585-79-11 10:41:00 Test Item Value Reference Range Interpretation Comments Hgb (test code = Hgb) 7.6 14.0-18.0 [facility] CentralAnyuoixAGDFCRHKRI1808-58-08 02:33:00 Test Item Value Reference Range Interpretation Comments Hgb (test code = Hgb) 7.9 14.0-18.0 [facility] CentralUjvhjkvRAEAZATIJM0399-25-76 02:33:00 Test Item Value Reference Range Interpretation Comments Hgb (test code = Hgb) 7.9 14.0-18.0 [facility] CentralImvddhqYUVRTIHVPG5666-49-24 02:33:00 Test Item Value Reference Range Interpretation Comments Hgb (test code = Hgb) 7.9 14.0-18.0 [facility] CentralRbgnhtnHMIFZYPTKC1988-44-07 20:10:00 Test Item Value Reference Range Interpretation Comments Hct (test code = Hct) 23.0 42.0-54.0 [facility] CentralLkymvhoLDCZYHLJDQ2182-06-96 20:10:00 Test Item Value Reference Range Interpretation Comments Hct (test code = Hct) 23.0 42.0-54.0 [facility] CentralIdltiokZUTLOXKQTB7165-44-56 20:10:00 Test Item Value Reference Range Interpretation Comments Hct (test code = Hct) 23.0 42.0-54.0 [facility]2020-10-31 19:15:00 Test Item Value Reference Range Interpretation Comments Color BF (test code = Light Yellow (08/08/20 Color BF) 2:15 PM) [facility]2020-10-31 19:15:00 Test Item Value Reference Range Interpretation Comments Clarity BF (test code = Slight Cloudy Clarity BF) (08/08/20 2:15 PM) [facility]2020-10-31 19:15:00 Test Item Value Reference Range Interpretation Comments Nucleated Cells BF (test code = 571 Nucleated Cells BF) [facility]2020-10-31 19:15:00 Test Item Value Reference Range Interpretation Comments RBC BF (test code = RBC BF) 512 [facility]2020-10-31 19:15:00 Test Item Value Reference Range Interpretation Comments Neutrophils BF (test code = Neutrophils 18 BF) [facility]2020-10-31 19:15:00 Test Item Value Reference Range Interpretation Comments Lymph BF (test code = Lymph BF) 10 [facility]2020-10-31 19:15:00 Test Item Value Reference Range Interpretation Comments Macrophage BF (test code = Macrophage 44 BF) [facility]2020-10-31 19:15:00 Test Item Value Reference Range Interpretation Comments Eos BF (test code = Eos BF) 26 [facility]2020-10-31 19:15:00 Test Item Value Reference Range Interpretation Comments Meso BF (test code = Meso BF) 2 [facility]2020-10-31 19:15:00 Test Item Value Reference Range Interpretation Comments CellCnt BF Type (test Abdomn (08/08/20 2:15 code = CellCnt BF Type) PM) [facility] Awbsvv3265-33-46 19:15:00 Test Item Value Reference Range Interpretation Comments Gram Stain Report Few WBC's No Organisms (test code = Gram Seen Stain Report) [facility] HospitalCulture: Aspirate/Body Fluid/Bldjxi2298-49-10 19:15:00 Test Item Value Reference Range Interpretation Comments Culture: Aspirate/Body Fluid/Tissue No Growth (test code = Culture: Aspirate/Body Fluid/Tissue) [facility]2020-10-31 19:15:00 Test Item Value Reference Range Interpretation Comments Color BF (test code = Light Yellow (08/08/20 Color BF) 2:15 PM) [facility]2020-10-31 19:15:00 Test Item Value Reference Range Interpretation Comments Clarity BF (test code = Slight Cloudy Clarity BF) (08/08/20 2:15 PM) [facility]2020-10-31 19:15:00 Test Item Value Reference Range Interpretation Comments Nucleated Cells BF (test code = 571 Nucleated Cells BF) [facility]2020-10-31 19:15:00 Test Item Value Reference Range Interpretation Comments RBC BF (test code = RBC BF) 512 [facility]2020-10-31 19:15:00 Test Item Value Reference Range Interpretation Comments Neutrophils BF (test code = Neutrophils 18 BF) [facility] [id number] 19:15:00 Test Item Value Reference Range Interpretation Comments Lymph BF (test code = Lymph BF) 10 [facility] [id number] 19:15:00 Test Item Value Reference Range Interpretation Comments Macrophage BF (test code = Macrophage 44 BF) [facility]2020-10-31 19:15:00 Test Item Value Reference Range Interpretation Comments Eos BF (test code = Eos BF) 26 [facility]2020-10-31 19:15:00 Test Item Value Reference Range Interpretation Comments Meso BF (test code = Meso BF) 2 [facility]2020-10-31 19:15:00 Test Item Value Reference Range Interpretation Comments CellCnt BF Type (test Abdomn (08/08/20 2:15 code = CellCnt BF Type) PM) [facility] HospitalGram Stain Ppxwsw9211-13-23 19:15:00 Test Item Value Reference Range Interpretation Comments Gram Stain Report Few WBC's No Organisms (test code = Gram Seen Stain Report) [facility] HospitalCulture: Aspirate/Body Fluid/Vzhtwf4739-04-67 19:15:00 Test Item Value Reference Range Interpretation Comments Culture: Aspirate/Body Fluid/Tissue No Growth (test code = Culture: Aspirate/Body Fluid/Tissue) [facility]2020-10-31 19:15:00 Test Item Value Reference Range Interpretation Comments Color BF (test code = Light Yellow (08/08/20 Color BF) 2:15 PM) [facility]2020-10-31 19:15:00 Test Item Value Reference Range Interpretation Comments Clarity BF (test code = Slight Cloudy Clarity BF) (08/08/20 2:15 PM) [facility] HospitalBundleTEQCFE0310-35-39 19:15:00 Test Item Value Reference Range Interpretation Comments Nucleated Cells BF (test code = 571 Nucleated Cells BF) [facility] SBKLUN4056-09-31 19:15:00 Test Item Value Reference Range Interpretation Comments RBC BF (test code = RBC BF) 512 [facility] TSCGOL6196-45-01 19:15:00 Test Item Value Reference Range Interpretation Comments Neutrophils BF (test code = Neutrophils 18 BF) [facility] [id number] 19:15:00 Test Item Value Reference Range Interpretation Comments Lymph BF (test code = Lymph BF) 10 [facility] [id number] 19:15:00 Test Item Value Reference Range Interpretation Comments Macrophage BF (test code = Macrophage 44 BF) [facility]2020-10-31 19:15:00 Test Item Value Reference Range Interpretation Comments Eos BF (test code = Eos BF) 26 [facility] [id number] 19:15:00 Test Item Value Reference Range Interpretation Comments Meso BF (test code = Meso BF) 2 [facility]2020-10-31 19:15:00 Test Item Value Reference Range Interpretation Comments CellCnt BF Type (test Abdomn (08/08/20 2:15 code = CellCnt BF Type) PM) [facility] HospitalGram Stain Ddtwev0641-25-61 19:15:00 Test Item Value Reference Range Interpretation Comments Gram Stain Report Few WBC's No Organisms (test code = Gram Seen Stain Report) [facility] HospitalCulture: Aspirate/Body Fluid/Lnaowo4391-85-29 19:15:00 Test Item Value Reference Range Interpretation Comments Culture: Aspirate/Body Fluid/Tissue No Growth (test code = Culture: Aspirate/Body Fluid/Tissue) [facility] [id number] 15:28:09 Test Item Value Reference Range Interpretation Comments RBC product (test code Product available = RBC product) 4(08/08/20 10:28 AM) [facility] [id number] 15:28:09 Test Item Value Reference Range Interpretation Comments RBC product (test code Product available = RBC product) 4(08/08/20 10:28 AM) [facility] [id number] 15:28:09 Test Item Value Reference Range Interpretation Comments RBC product (test code Product available = RBC product) 4(08/08/20 10:28 AM) [facility]Think[facility] [id number] 14:41:00 Test Item Value Reference Range Interpretation Comments ABO/Rh (test code = ABO/Rh) O POS [facility]Think[facility] [id number] 14:41:00 Test Item Value Reference Range Interpretation Comments Antibody Scrn (test Negative (08/08/20 code = Antibody Scrn) 9:41 AM) [facility] HospitalYvqlmfjRGBFOOTKFE1572-47-50 14:41:00 Test Item Value Reference Range Interpretation Comments Bands (test code = 1.0 See_Comment [Automat ed message] The Bands) system which ge nerated this result transmit emerson reference range : <=11.0. The reference r yared was not used to interpr et this result as erinn l/abnormal. [facility] CentralDytbkrlGFWYAYSTYU1962-54-55 14:41:00 Test Item Value Reference Range Interpretation Comments Atypical Lymphs (test code = Atypical 9.0 Lymphs) [facility] CentralZtggvrrIJCQSEISYI5982-78-27 14:41:00 Test Item Value Reference Range Interpretation Comments RBC Morph (test code = See Note (08/08/20 RBC Morph) 9:41 AM) [place] 799140-10-31 14:41:00 Test Item Value Reference Range Interpretation Comments Plt Morph (test code = Normal (08/08/20 9:41 Plt Morph) AM) [place] 799140-10-31 14:41:00 Test Item Value Reference Range Interpretation Comments Anisocyte (test code = 1+ *ABN*(08/08/20 Anisocyte) 9:41 AM) [place] 799140-10-31 14:41:00 Test Item Value Reference Range Interpretation Comments Macrocyte (test code = 1+ *ABN*(08/08/20 Macrocyte) 9:41 AM) [facility] CentralDifrkguCDYMPVZSMG7497-90-95 14:41:00 Test Item Value Reference Range Interpretation Comments Hypochrom (test code = 1+ (08/08/20 9:41 Hypochrom) AM) [place] 799140-10-31 14:41:00 Test Item Value Reference Range Interpretation Comments Polychrom (test code = Moderate Polychrom) *ABN*(08/08/20 9:41 AM) [place] 799140-10-31 14:41:00 Test Item Value Reference Range Interpretation Comments WBC (test code = WBC) 6.0 3.7-10.4 [facility] CentralLeidqwlUNGHIKJTOL4934-45-72 14:41:00 Test Item Value Reference Range Interpretation Comments RBC (test code = RBC) 2.32 4.70-6.10 [place] 799140-10-31 14:41:00 Test Item Value Reference Range Interpretation Comments Hct (test code = Hct) 19.8 42.0-54.0 [place] 799140-10-31 14:41:00 Test Item Value Reference Range Interpretation Comments MCV (test code = MCV) 85.6 80.0-94.0 [place] 799140-10-31 14:41:00 Test Item Value Reference Range Interpretation Comments MCH (test code = MCH) 29.0 pg 27.0-31.0 [facility] CentralPlqrjzdEINPILAQQQ1941-00-88 14:41:00 Test Item Value Reference Range Interpretation Comments MCHC (test code = MCHC) 33.8 32.0-36.0 [place] 799140-10-31 14:41:00 Test Item Value Reference Range Interpretation Comments RDW (test code = RDW) 13.9 11.5-14.5 [place] 799140-10-31 14:41:00 Test Item Value Reference Range Interpretation Comments Platelet (test code = Platelet) 176 133-450 [facility] CentralNumoaczVDQSDANZJL9800-04-43 14:41:00 Test Item Value Reference Range Interpretation Comments MPV (test code = MPV) 6.8 7.4-10.4 [place] 799140-10-31 14:41:00 Test Item Value Reference Range Interpretation Comments Neutrophils # (test code = Neutrophils 4.1 1.5-8.1 #) [facility] CentralViruxzuYINQCBUOPX1393-83-59 14:41:00 Test Item Value Reference Range Interpretation Comments Lymphocytes # (test code = Lymphocytes 1.4 1.0-5.5 #) [facility] CentralHkoftyqXJRXXSEMUD1411-78-97 14:41:00 Test Item Value Reference Range Interpretation Comments Monocytes # (test code 0.1 See_Comment [Aut omated message] The = Monocytes #) system which generated this result tra nsmitted reference range : <=0.8. The reference r yared was not used to int erpret this result as normal/abnormal . [facility] CentralRivbjdwPNTFTPNIFU2972-44-05 14:41:00 Test Item Value Reference Range Interpretation Comments Eosinophils # (test code 0.4 See_Comment [A utomated message] The = Eosinophils #) system whic h generated this result tra nsmitted reference range : <=0.5. The reference r yared was not used to int erpret this result as normal/abnormal . [place] 799140-10-31 14:41:00 Test Item Value Reference Range Interpretation Comments Segs (test code = Segs) 68.0 45.0-75.0 [facility] CentralNnvlfvhNSLROJKAVB5115-19-41 14:41:00 Test Item Value Reference Range Interpretation Comments Lymphocytes (test code = Lymphocytes) 14.0 20.0-40.0 [facility] CentralKrkawyvERFWQSJDGK7863-61-31 14:41:00 Test Item Value Reference Range Interpretation Comments Monocytes (test code = Monocytes) 2.0 2.0-12.0 [facility] CentralYrqruvcOKQFDTSANF8030-80-48 14:41:00 Test Item Value Reference Range Interpretation Comments Eosinophils (test code = 6.0 See_Comment [A utomated message] The Eosinophils) system which ge nerated this result tra nsmitted reference range : <=4.0. The reference r yared was not used to int erpret this result as normal/abnormal . [facility] [id number] 14:41:00 Test Item Value Reference Range Interpretation Comments ABO/Rh (test code = ABO/Rh) O POS [facility] [id number] 14:41:00 Test Item Value Reference Range Interpretation Comments Antibody Scrn (test Negative (08/08/20 code = Antibody Scrn) 9:41 AM) [facility] CentralGpacoqsMLKDLMAQTL4098-86-36 14:41:00 Test Item Value Reference Range Interpretation Comments Bands (test code = 1.0 See_Comment [Automat ed message] The Bands) system which ge nerated this result transmit emerson reference range : <=11.0. The reference r yared was not used to interpr et this result as erinn l/abnormal. [facility] CentralTvtfxxwPFXFZLQECE6786-52-71 14:41:00 Test Item Value Reference Range Interpretation Comments Atypical Lymphs (test code = Atypical 9.0 Lymphs) [facility] CentralUvpgpnmTLJQRKYHIW8808-60-82 14:41:00 Test Item Value Reference Range Interpretation Comments RBC Morph (test code = See Note (08/08/20 RBC Morph) 9:41 AM) [facility] CentralQsqwxjuQJUIGRKZVS1170-11-38 14:41:00 Test Item Value Reference Range Interpretation Comments Plt Morph (test code = Normal (08/08/20 9:41 Plt Morph) AM) [facility] CentralOqqzxuoMXDBBDMRCC6802-25-05 14:41:00 Test Item Value Reference Range Interpretation Comments Anisocyte (test code = 1+ *ABN*(08/08/20 Anisocyte) 9:41 AM) [place] 799140-10-31 14:41:00 Test Item Value Reference Range Interpretation Comments Macrocyte (test code = 1+ *ABN*(08/08/20 Macrocyte) 9:41 AM) [place] 799140-10-31 14:41:00 Test Item Value Reference Range Interpretation Comments Hypochrom (test code = 1+ (08/08/20 9:41 Hypochrom) AM) [place] [address]-10-31 14:41:00 Test Item Value Reference Range Interpretation Comments Polychrom (test code = Moderate Polychrom) *ABN*(08/08/20 9:41 AM) [place] 799140-10-31 14:41:00 Test Item Value Reference Range Interpretation Comments WBC (test code = WBC) 6.0 3.7-10.4 [place] 799140-10-31 14:41:00 Test Item Value Reference Range Interpretation Comments RBC (test code = RBC) 2.32 4.70-6.10 [place] [address]-10-31 14:41:00 Test Item Value Reference Range Interpretation Comments Hct (test code = Hct) 19.8 42.0-54.0 [place] [address]-10-31 14:41:00 Test Item Value Reference Range Interpretation Comments MCV (test code = MCV) 85.6 80.0-94.0 [place] 799140-10-31 14:41:00 Test Item Value Reference Range Interpretation Comments MCH (test code = MCH) 29.0 pg 27.0-31.0 [place] 799140-10-31 14:41:00 Test Item Value Reference Range Interpretation Comments MCHC (test code = MCHC) 33.8 32.0-36.0 [place] [address]-10-31 14:41:00 Test Item Value Reference Range Interpretation Comments RDW (test code = RDW) 13.9 11.5-14.5 [place] 799140-10-31 14:41:00 Test Item Value Reference Range Interpretation Comments Platelet (test code = Platelet) 176 133-450 [facility] CentralFogwsrfGPAEMOKUMR7135-14-69 14:41:00 Test Item Value Reference Range Interpretation Comments MPV (test code = MPV) 6.8 7.4-10.4 [facility] CentralLktuxumOVBIRZMNAL5675-25-48 14:41:00 Test Item Value Reference Range Interpretation Comments Neutrophils # (test code = Neutrophils 4.1 1.5-8.1 #) [facility] CentralYcqgpsmYPPXXAQTRJ4039-75-39 14:41:00 Test Item Value Reference Range Interpretation Comments Lymphocytes # (test code = Lymphocytes 1.4 1.0-5.5 #) [facility] CentralKixpmkzGVYGQKEKKD2374-14-45 14:41:00 Test Item Value Reference Range Interpretation Comments Monocytes # (test code 0.1 See_Comment [Aut omated message] The = Monocytes #) system which generated this result tra nsmitted reference range : <=0.8. The reference r yared was not used to int erpret this result as normal/abnormal . [facility] CentralDkvgdihTUTJLSFNTR5770-29-00 14:41:00 Test Item Value Reference Range Interpretation Comments Eosinophils # (test code 0.4 See_Comment [A utomated message] The = Eosinophils #) system whic h generated this result tra nsmitted reference range : <=0.5. The reference r yared was not used to int erpret this result as normal/abnormal . [facility] CentralRjxkevxULLBVWLKAC0915-88-49 14:41:00 Test Item Value Reference Range Interpretation Comments Segs (test code = Segs) 68.0 45.0-75.0 [facility] CentralJhgjimfFUHIBWKZNA3428-08-09 14:41:00 Test Item Value Reference Range Interpretation Comments Lymphocytes (test code = Lymphocytes) 14.0 20.0-40.0 [place] 799140-10-31 14:41:00 Test Item Value Reference Range Interpretation Comments Monocytes (test code = Monocytes) 2.0 2.0-12.0 [place] 799140-10-31 14:41:00 Test Item Value Reference Range Interpretation Comments Eosinophils (test code = 6.0 See_Comment [A utomated message] The Eosinophils) system which ge nerated this result tra nsmitted reference range : <=4.0. The reference r yared was not used to int erpret this result as normal/abnormal . [facility] RONWWVA7285-19-31 14:41:00 Test Item Value Reference Range Interpretation Comments ABO/Rh (test code = ABO/Rh) O POS [facility] FRMCQPZ3544-14-27 14:41:00 Test Item Value Reference Range Interpretation Comments Antibody Scrn (test Negative (08/08/20 code = Antibody Scrn) 9:41 AM) [facility] CentralDxlmoajLNOFKSEXBH4748-81-46 14:41:00 Test Item Value Reference Range Interpretation Comments Bands (test code = 1.0 See_Comment [Automat ed message] The Bands) system which ge nerated this result transmit emerson reference range : <=11.0. The reference r yared was not used to interpr et this result as erinn l/abnormal. [facility] CentralDlzxkpsMEBDBRWIFU5790-63-79 14:41:00 Test Item Value Reference Range Interpretation Comments Atypical Lymphs (test code = Atypical 9.0 Lymphs) [facility] CentralUnqyoqiUTXUSOJJYQ2216-74-18 14:41:00 Test Item Value Reference Range Interpretation Comments RBC Morph (test code = See Note (08/08/20 RBC Morph) 9:41 AM) [facility] CentralJmknnecCWSSOGARRZ8316-33-26 14:41:00 Test Item Value Reference Range Interpretation Comments Plt Morph (test code = Normal (08/08/20 9:41 Plt Morph) AM) [facility] CentralDzsguvlHJGYFKJZMR4472-47-67 14:41:00 Test Item Value Reference Range Interpretation Comments Anisocyte (test code = 1+ *ABN*(08/08/20 Anisocyte) 9:41 AM) [facility] CentralIoljwveRUCGBUIXXN3347-82-42 14:41:00 Test Item Value Reference Range Interpretation Comments Macrocyte (test code = 1+ *ABN*(08/08/20 Macrocyte) 9:41 AM) [facility] CentralIrimpcoCNFFZYOWID0799-62-08 14:41:00 Test Item Value Reference Range Interpretation Comments Hypochrom (test code = 1+ (08/08/20 9:41 Hypochrom) AM) [facility] CentralZmeblneDNWKNAUJJS1124-76-88 14:41:00 Test Item Value Reference Range Interpretation Comments Polychrom (test code = Moderate Polychrom) *ABN*(08/08/20 9:41 AM) [facility] CentralCyyfntuRFHWZTPTUZ7666-48-09 14:41:00 Test Item Value Reference Range Interpretation Comments WBC (test code = WBC) 6.0 3.7-10.4 [place]99140-10-31 14:41:00 Test Item Value Reference Range Interpretation Comments RBC (test code = RBC) 2.32 4.70-6.10 [place] 799140-10-31 14:41:00 Test Item Value Reference Range Interpretation Comments Hct (test code = Hct) 19.8 42.0-54.0 [place] 799140-10-31 14:41:00 Test Item Value Reference Range Interpretation Comments MCV (test code = MCV) 85.6 80.0-94.0 [place] 799140-10-31 14:41:00 Test Item Value Reference Range Interpretation Comments MCH (test code = MCH) 29.0 pg 27.0-31.0 [place] 799140-10-31 14:41:00 Test Item Value Reference Range Interpretation Comments MCHC (test code = MCHC) 33.8 32.0-36.0 [place] 799140-10-31 14:41:00 Test Item Value Reference Range Interpretation Comments RDW (test code = RDW) 13.9 11.5-14.5 [place] 799140-10-31 14:41:00 Test Item Value Reference Range Interpretation Comments Platelet (test code = Platelet) 176 133-450 [place] 799140-10-31 14:41:00 Test Item Value Reference Range Interpretation Comments MPV (test code = MPV) 6.8 7.4-10.4 [place] 799140-10-31 14:41:00 Test Item Value Reference Range Interpretation Comments Neutrophils # (test code = Neutrophils 4.1 1.5-8.1 #) [place] 799140-10-31 14:41:00 Test Item Value Reference Range Interpretation Comments Lymphocytes # (test code = Lymphocytes 1.4 1.0-5.5 #) [place] 799140-10-31 14:41:00 Test Item Value Reference Range Interpretation Comments Monocytes # (test code 0.1 See_Comment [Aut omated message] The = Monocytes #) system which generated this result tra nsmitted reference range : <=0.8. The reference r yared was not used to int erpret this result as normal/abnormal . [place] 799140-10-31 14:41:00 Test Item Value Reference Range Interpretation Comments Eosinophils # (test code 0.4 See_Comment [A utomated message] The = Eosinophils #) system whic h generated this result tra nsmitted reference range : <=0.5. The reference r yared was not used to int erpret this result as normal/abnormal . [place] 799140-10-31 14:41:00 Test Item Value Reference Range Interpretation Comments Segs (test code = Segs) 68.0 45.0-75.0 [place] 799140-10-31 14:41:00 Test Item Value Reference Range Interpretation Comments Lymphocytes (test code = Lymphocytes) 14.0 20.0-40.0 [facility]jjegnuOEGIOBWMNZ2582-65-41 14:41:00 Test Item Value Reference Range Interpretation Comments Monocytes (test code = Monocytes) 2.0 2.0-12.0 [place] 799140-10-31 14:41:00 Test Item Value Reference Range Interpretation Comments Eosinophils (test code = 6.0 See_Comment [A utomated message] The Eosinophils) system which ge nerated this result tra nsmitted reference range : <=4.0. The reference r yared was not used to int erpret this result as normal/abnormal . [facility]2020-10-31 08:42:00 Test Item Value Reference Range Interpretation Comments Phosphorus (test code = Phosphorus) 4.4 2.5-4.5 [place] 065730-10-31 08:42:00 Test Item Value Reference Range Interpretation Comments Glucose Lvl (test code = Glucose Lvl) 80 70-99 [place] 065730-10-31 08:42:00 Test Item Value Reference Range Interpretation Comments BUN (test code = BUN) 34 7-22 [place] 065730-10-31 08:42:00 Test Item Value Reference Range Interpretation Comments Creatinine Lvl (test code = Creatinine 10.90 0.50-1.40 Lvl) [place] 065730-10-31 08:42:00 Test Item Value Reference Range Interpretation Comments Sodium Lvl (test code = Sodium Lvl) 138 135-145 [place] 065730-10-31 08:42:00 Test Item Value Reference Range Interpretation Comments Potassium Lvl (test code = Potassium 3.6 3.5-5.1 Lvl) [place] 065730-10-31 08:42:00 Test Item Value Reference Range Interpretation Comments Chloride Lvl (test code = Chloride Lvl) 99 95-109 [place] 065730-10-31 08:42:00 Test Item Value Reference Range Interpretation Comments CO2 (test code = CO2) 33 24-32 [place] 065730-10-31 08:42:00 Test Item Value Reference Range Interpretation Comments Calcium Lvl (test code = Calcium Lvl) 8.1 8.5-10.5 [place] 065730-10-31 08:42:00 Test Item Value Reference Range Interpretation Comments AGAP (test code = AGAP) 9.6 10.0-20.0 [facility]2020-10-31 08:42:00 Test Item Value Reference Range Interpretation Comments eGFR (test code = eGFR) 5 [facility] CentralRqctkppDTKCOSASUL9589-25-38 08:42:00 Test Item Value Reference Range Interpretation Comments Basophils (test code = 0.6 See_Comment [Aut omated message] The Basophils) system which ge nerated this result tra nsmitted reference range : <=1.0. The reference r yared was not used to int erpret this result as normal/abnormal . [facility] CentralOatkbuwNMYSEHOPSP0535-01-22 08:42:00 Test Item Value Reference Range Interpretation Comments WBC (test code = WBC) 6.7 3.7-10.4 [place] 799140-10-31 08:42:00 Test Item Value Reference Range Interpretation Comments RBC (test code = RBC) 2.53 4.70-6.10 [place] [address]-10-31 08:42:00 Test Item Value Reference Range Interpretation Comments MCV (test code = MCV) 84.8 80.0-94.0 [place] 799140-10-31 08:42:00 Test Item Value Reference Range Interpretation Comments MCH (test code = MCH) 28.5 pg 27.0-31.0 [place] [address]-10-31 08:42:00 Test Item Value Reference Range Interpretation Comments MCHC (test code = MCHC) 33.6 32.0-36.0 [place] [address]-10-31 08:42:00 Test Item Value Reference Range Interpretation Comments RDW (test code = RDW) 14.4 11.5-14.5 [place] [address]-10-31 08:42:00 Test Item Value Reference Range Interpretation Comments Platelet (test code = Platelet) 182 133-450 [place] 799140-10-31 08:42:00 Test Item Value Reference Range Interpretation Comments MPV (test code = MPV) 7.0 7.4-10.4 [place] [address]-10-31 08:42:00 Test Item Value Reference Range Interpretation Comments Segs (test code = Segs) 71.1 45.0-75.0 [place] [address]-10-31 08:42:00 Test Item Value Reference Range Interpretation Comments Lymphocytes (test code = Lymphocytes) 16.3 20.0-40.0 [place] [address]-10-31 08:42:00 Test Item Value Reference Range Interpretation Comments Monocytes (test code = Monocytes) 8.0 2.0-12.0 [place] [address]-10-31 08:42:00 Test Item Value Reference Range Interpretation Comments Eosinophils (test code = 4.0 See_Comment [A utomated message] The Eosinophils) system which ge nerated this result tra nsmitted reference range : <=4.0. The reference r yared was not used to int erpret this result as normal/abnormal . [place] 799140-10-31 08:42:00 Test Item Value Reference Range Interpretation Comments Neutrophils # (test code = Neutrophils 4.7 1.5-8.1 #) [place] [address]-10-31 08:42:00 Test Item Value Reference Range Interpretation Comments Lymphocytes # (test code = Lymphocytes 1.1 1.0-5.5 #) [place] [address]-10-31 08:42:00 Test Item Value Reference Range Interpretation Comments Monocytes # (test code 0.5 See_Comment [Aut omated message] The = Monocytes #) system which generated this result tra nsmitted reference range : <=0.8. The reference r yared was not used to int erpret this result as normal/abnormal . [place] [address]-10-31 08:42:00 Test Item Value Reference Range Interpretation Comments Eosinophils # (test code 0.3 See_Comment [A utomated message] The = Eosinophils #) system whic h generated this result tra nsmitted reference range : <=0.5. The reference r yared was not used to int erpret this result as normal/abnormal . [place] 065730-10-31 08:42:00 Test Item Value Reference Range Interpretation Comments Phosphorus (test code = Phosphorus) 4.4 2.5-4.5 [place] 065730-10-31 08:42:00 Test Item Value Reference Range Interpretation Comments Glucose Lvl (test code = Glucose Lvl) 80 70-99 [place] 065730-10-31 08:42:00 Test Item Value Reference Range Interpretation Comments BUN (test code = BUN) 34 7-22 [place] 065730-10-31 08:42:00 Test Item Value Reference Range Interpretation Comments Creatinine Lvl (test code = Creatinine 10.90 0.50-1.40 Lvl) [place] 065730-10-31 08:42:00 Test Item Value Reference Range Interpretation Comments Sodium Lvl (test code = Sodium Lvl) 138 135-145 [place] 065730-10-31 08:42:00 Test Item Value Reference Range Interpretation Comments Potassium Lvl (test code = Potassium 3.6 3.5-5.1 Lvl) [place] 065730-10-31 08:42:00 Test Item Value Reference Range Interpretation Comments Chloride Lvl (test code = Chloride Lvl) 99 95-109 [place] 065730-10-31 08:42:00 Test Item Value Reference Range Interpretation Comments CO2 (test code = CO2) 33 24-32 [place] 065730-10-31 08:42:00 Test Item Value Reference Range Interpretation Comments Calcium Lvl (test code = Calcium Lvl) 8.1 8.5-10.5 [place] 065730-10-31 08:42:00 Test Item Value Reference Range Interpretation Comments AGAP (test code = AGAP) 9.6 10.0-20.0 [place] 065730-10-31 08:42:00 Test Item Value Reference Range Interpretation Comments eGFR (test code = eGFR) 5 [facility] CentralFtwcadvWCPLYCOALX9086-58-42 08:42:00 Test Item Value Reference Range Interpretation Comments Basophils (test code = 0.6 See_Comment [Aut omated message] The Basophils) system which ge nerated this result tra nsmitted reference range : <=1.0. The reference r yared was not used to int erpret this result as normal/abnormal . [facility] CentralMlytwdaYNDZJDVTYT9331-22-28 08:42:00 Test Item Value Reference Range Interpretation Comments WBC (test code = WBC) 6.7 3.7-10.4 [facility] CentralXmrrxrxBKWHJVSUVB2209-13-85 08:42:00 Test Item Value Reference Range Interpretation Comments RBC (test code = RBC) 2.53 4.70-6.10 [facility] CentralEryucwxMGHLTAMCMM1216-17-98 08:42:00 Test Item Value Reference Range Interpretation Comments MCV (test code = MCV) 84.8 80.0-94.0 [facility] CentralEqmfrkyWOPVGOTBSS8440-42-89 08:42:00 Test Item Value Reference Range Interpretation Comments MCH (test code = MCH) 28.5 pg 27.0-31.0 [facility] CentralEbkyjznPYBTKWBKWX2128-49-18 08:42:00 Test Item Value Reference Range Interpretation Comments MCHC (test code = MCHC) 33.6 32.0-36.0 [facility] CentralGzdlvotRPAXZOFAKY0965-48-70 08:42:00 Test Item Value Reference Range Interpretation Comments RDW (test code = RDW) 14.4 11.5-14.5 [facility] CentralWtnkezeBWMZJMLTOU5166-40-12 08:42:00 Test Item Value Reference Range Interpretation Comments Platelet (test code = Platelet) 182 133-450 [facility] CentralSsnsgctBMCEHYKPMZ6754-26-39 08:42:00 Test Item Value Reference Range Interpretation Comments MPV (test code = MPV) 7.0 7.4-10.4 [place] 799140-10-31 08:42:00 Test Item Value Reference Range Interpretation Comments Segs (test code = Segs) 71.1 45.0-75.0 [facility] CentralIzfncvmHIJKPWDUAO0189-72-99 08:42:00 Test Item Value Reference Range Interpretation Comments Lymphocytes (test code = Lymphocytes) 16.3 20.0-40.0 [facility] CentralRtqfmvwECGAXGCVWM5114-80-13 08:42:00 Test Item Value Reference Range Interpretation Comments Monocytes (test code = Monocytes) 8.0 2.0-12.0 [place] [address]-10-31 08:42:00 Test Item Value Reference Range Interpretation Comments Eosinophils (test code = 4.0 See_Comment [A utomated message] The Eosinophils) system which ge nerated this result tra nsmitted reference range : <=4.0. The reference r yared was not used to int erpret this result as normal/abnormal . [place] 799140-10-31 08:42:00 Test Item Value Reference Range Interpretation Comments Neutrophils # (test code = Neutrophils 4.7 1.5-8.1 #) [place] 799140-10-31 08:42:00 Test Item Value Reference Range Interpretation Comments Lymphocytes # (test code = Lymphocytes 1.1 1.0-5.5 #) [place] [address]-10-31 08:42:00 Test Item Value Reference Range Interpretation Comments Monocytes # (test code 0.5 See_Comment [Aut omated message] The = Monocytes #) system which generated this result tra nsmitted reference range : <=0.8. The reference r yared was not used to int erpret this result as normal/abnormal . [place] 799140-10-31 08:42:00 Test Item Value Reference Range Interpretation Comments Eosinophils # (test code 0.3 See_Comment [A utomated message] The = Eosinophils #) system whic h generated this result tra nsmitted reference range : <=0.5. The reference r yared was not used to int erpret this result as normal/abnormal . [place] 065730-10-31 08:42:00 Test Item Value Reference Range Interpretation Comments Phosphorus (test code = Phosphorus) 4.4 2.5-4.5 [place] 065730-10-31 08:42:00 Test Item Value Reference Range Interpretation Comments Glucose Lvl (test code = Glucose Lvl) 80 70-99 [place] 065730-10-31 08:42:00 Test Item Value Reference Range Interpretation Comments BUN (test code = BUN) 34 7-22 [place] 065730-10-31 08:42:00 Test Item Value Reference Range Interpretation Comments Creatinine Lvl (test code = Creatinine 10.90 0.50-1.40 Lvl) [place] 065730-10-31 08:42:00 Test Item Value Reference Range Interpretation Comments Sodium Lvl (test code = Sodium Lvl) 138 135-145 [place] 065730-10-31 08:42:00 Test Item Value Reference Range Interpretation Comments Potassium Lvl (test code = Potassium 3.6 3.5-5.1 Lvl) [place] 065730-10-31 08:42:00 Test Item Value Reference Range Interpretation Comments Chloride Lvl (test code = Chloride Lvl) 99 95-109 [place] [address]-10-31 08:42:00 Test Item Value Reference Range Interpretation Comments CO2 (test code = CO2) 33 24-32 [place] [address]-10-31 08:42:00 Test Item Value Reference Range Interpretation Comments Calcium Lvl (test code = Calcium Lvl) 8.1 8.5-10.5 [place] 065730-10-31 08:42:00 Test Item Value Reference Range Interpretation Comments AGAP (test code = AGAP) 9.6 10.0-20.0 [place] 065730-10-31 08:42:00 Test Item Value Reference Range Interpretation Comments eGFR (test code = eGFR) 5 [place] 799140-10-31 08:42:00 Test Item Value Reference Range Interpretation Comments Basophils (test code = 0.6 See_Comment [Aut omated message] The Basophils) system which ge nerated this result tra nsmitted reference range : <=1.0. The reference r yared was not used to int erpret this result as normal/abnormal . [place] 799140-10-31 08:42:00 Test Item Value Reference Range Interpretation Comments WBC (test code = WBC) 6.7 3.7-10.4 [place] [address]-10-31 08:42:00 Test Item Value Reference Range Interpretation Comments RBC (test code = RBC) 2.53 4.70-6.10 [place] [address]-10-31 08:42:00 Test Item Value Reference Range Interpretation Comments MCV (test code = MCV) 84.8 80.0-94.0 [place] [address]-10-31 08:42:00 Test Item Value Reference Range Interpretation Comments MCH (test code = MCH) 28.5 pg 27.0-31.0 [facility] CentralCtvkqugLBKSJDSNMO6780-49-83 08:42:00 Test Item Value Reference Range Interpretation Comments MCHC (test code = MCHC) 33.6 32.0-36.0 [facility] CentralScjutxjOZZYNBZFKM7510-26-87 08:42:00 Test Item Value Reference Range Interpretation Comments RDW (test code = RDW) 14.4 11.5-14.5 [facility] CentralCydkrtlHZPQASVZST6952-74-36 08:42:00 Test Item Value Reference Range Interpretation Comments Platelet (test code = Platelet) 182 133-450 [facility] CentralKgqapuxZAELGQMRBY1221-09-16 08:42:00 Test Item Value Reference Range Interpretation Comments MPV (test code = MPV) 7.0 7.4-10.4 [place] 799140-10-31 08:42:00 Test Item Value Reference Range Interpretation Comments Segs (test code = Segs) 71.1 45.0-75.0 [facility] CentralRaquizoVJOSSMLJTV5266-12-79 08:42:00 Test Item Value Reference Range Interpretation Comments Lymphocytes (test code = Lymphocytes) 16.3 20.0-40.0 [facility] CentralXmtgaimMYDOCZFSMQ8515-08-40 08:42:00 Test Item Value Reference Range Interpretation Comments Monocytes (test code = Monocytes) 8.0 2.0-12.0 [facility] CentralGbtoazqSBFRKTNZBU5335-80-00 08:42:00 Test Item Value Reference Range Interpretation Comments Eosinophils (test code = 4.0 See_Comment [A utomated message] The Eosinophils) system which ge nerated this result tra nsmitted reference range : <=4.0. The reference r yared was not used to int erpret this result as normal/abnormal . [facility] CentralErnvgtuHRPTKSDIAG3857-99-73 08:42:00 Test Item Value Reference Range Interpretation Comments Neutrophils # (test code = Neutrophils 4.7 1.5-8.1 #) [facility] CentralRnmptssRRHZHUMSRN2270-39-33 08:42:00 Test Item Value Reference Range Interpretation Comments Lymphocytes # (test code = Lymphocytes 1.1 1.0-5.5 #) [facility] CentralEefapksKLCIIEMVLL3218-38-14 08:42:00 Test Item Value Reference Range Interpretation Comments Monocytes # (test code 0.5 See_Comment [Aut omated message] The = Monocytes #) system which generated this result tra nsmitted reference range : <=0.8. The reference r yared was not used to int erpret this result as normal/abnormal . [facility] CentralKqfktsuUTOAUYKMGX2051-21-69 08:42:00 Test Item Value Reference Range Interpretation Comments Eosinophils # (test code 0.3 See_Comment [A utomated message] The = Eosinophils #) system whic h generated this result tra nsmitted reference range : <=0.5. The reference r yared was not used to int erpret this result as normal/abnormal . [facility] CentralFbxszkcPNUMJBTNCM1504-61-93 02:01:00 Test Item Value Reference Range Interpretation Comments PT (test code = PT) 13.2 s 12.0-14.7 [facility] CentralGmwsixhYZGJUZMOGH3900-40-50 02:01:00 Test Item Value Reference Range Interpretation Comments INR (test code = INR) 1.00 1 0.85-1.17 [facility] CentralDbngnqhWKRUIEDMLG1106-47-13 02:01:00 Test Item Value Reference Range Interpretation Comments PTT (test code = PTT) 29.8 s 22.9-35.8 [facility] CentralNcsihxcLWTAIJIZUV1560-34-11 02:01:00 Test Item Value Reference Range Interpretation Comments Basophils (test code = 0.6 See_Comment [Aut omated message] The Basophils) system which ge nerated this result tra nsmitted reference range : <=1.0. The reference r yared was not used to int erpret this result as normal/abnormal . [facility]PnmwigwAFPVKQMTAI7813-40-86 02:01:00 Test Item Value Reference Range Interpretation Comments Hep Bs Ag (test code Negative *NA*(08/07/20 = Hep Bs Ag) 9:01 PM) [facility] CentralVvzigtzAHGCJXBCOE1192-79-58 02:01:00 Test Item Value Reference Range Interpretation Comments PT (test code = PT) 13.2 s 12.0-14.7 [facility] CentralHjjnstgNWVUCKCCJA6164-97-71 02:01:00 Test Item Value Reference Range Interpretation Comments INR (test code = INR) 1.00 1 0.85-1.17 [facility] CentralSaisyxkLWMAOIMEXD5800-17-56 02:01:00 Test Item Value Reference Range Interpretation Comments PTT (test code = PTT) 29.8 s 22.9-35.8 [facility]TCFEVUOIRS7291-65-20 02:01:00 Test Item Value Reference Range Interpretation Comments Basophils (test code = 0.6 See_Comment [Aut omated message] The Basophils) system which ge nerated this result tra nsmitted reference range : <=1.0. The reference r yared was not used to int erpret this result as normal/abnormal . [facility]XgicstcATSBEAQJNW9387-69-16 02:01:00 Test Item Value Reference Range Interpretation Comments Hep Bs Ag (test code Negative *NA*(08/07/20 = Hep Bs Ag) 9:01 PM) [facility] HospitalEyqbbrxJIUFTFBIFS2896-97-41 02:01:00 Test Item Value Reference Range Interpretation Comments PT (test code = PT) 13.2 s 12.0-14.7 [facility] CentralYszmvviEPMEEXATXS9347-67-43 02:01:00 Test Item Value Reference Range Interpretation Comments INR (test code = INR) 1.00 1 0.85-1.17 [facility] HospitalCjylpalTBQMDANTSG2561-77-35 02:01:00 Test Item Value Reference Range Interpretation Comments PTT (test code = PTT) 29.8 s 22.9-35.8 [facility] HospitalTgonnsqSROVTKWTSS6274-53-84 02:01:00 Test Item Value Reference Range Interpretation Comments Basophils (test code = 0.6 See_Comment [Aut omated message] The Basophils) system which ge nerated this result tra nsmitted reference range : <=1.0. The reference r yared was not used to int erpret this result as normal/abnormal . [facility] HospitalMgqzkwsLIPRBOSKVX3132-67-94 02:01:00 Test Item Value Reference Range Interpretation Comments Hep Bs Ag (test code Negative *NA*(08/07/20 = Hep Bs Ag) 9:01 PM) [facility] [employer] [id number] 21:23:00 Test Item Value Reference Range Interpretation Comments Glucose Lvl (test code = Glucose Lvl) 72 70-99 [facility] [id number] 21:23:00 Test Item Value Reference Range Interpretation Comments BUN (test code = BUN) 28 7-22 [facility] [id number] 21:23:00 Test Item Value Reference Range Interpretation Comments Creatinine Lvl (test code = Creatinine 9.63 0.50-1.40 Lvl) [facility] [id number] 21:23:00 Test Item Value Reference Range Interpretation Comments Sodium Lvl (test code = Sodium Lvl) 137 135-145 [facility] [id number] 21:23:00 Test Item Value Reference Range Interpretation Comments Potassium Lvl (test code = Potassium 3.6 3.5-5.1 Lvl) [facility] [id number] 21:23:00 Test Item Value Reference Range Interpretation Comments Chloride Lvl (test code = Chloride Lvl) 99 95-109 [facility] [id number] 21:23:00 Test Item Value Reference Range Interpretation Comments CO2 (test code = CO2) 32 24-32 [facility] [id number] 21:23:00 Test Item Value Reference Range Interpretation Comments AGAP (test code = AGAP) 9.6 10.0-20.0 [facility] [id number] 21:23:00 Test Item Value Reference Range Interpretation Comments Calcium Lvl (test code = Calcium Lvl) 8.3 8.5-10.5 [facility] [id number] 21:23:00 Test Item Value Reference Range Interpretation Comments eGFR (test code = eGFR) 5 [facility] [id number] 21:23:00 Test Item Value Reference Range Interpretation Comments Glucose Lvl (test code = Glucose Lvl) 72 70-99 [facility] [id number] 21:23:00 Test Item Value Reference Range Interpretation Comments BUN (test code = BUN) 28 7-22 [facility] [id number] 21:23:00 Test Item Value Reference Range Interpretation Comments Creatinine Lvl (test code = Creatinine 9.63 0.50-1.40 Lvl) [facility] [employer] [id number] 21:23:00 Test Item Value Reference Range Interpretation Comments Sodium Lvl (test code = Sodium Lvl) 137 135-145 [facility] [id number] 21:23:00 Test Item Value Reference Range Interpretation Comments Potassium Lvl (test code = Potassium 3.6 3.5-5.1 Lvl) [facility] [id number] 21:23:00 Test Item Value Reference Range Interpretation Comments Chloride Lvl (test code = Chloride Lvl) 99 95-109 [facility] HospitalLaw[facility] LaboratoryFORMERLY [facility] [id number] 21:23:00 Test Item Value Reference Range Interpretation Comments CO2 (test code = CO2) 32 24-32 [facility]2020-10-30 21:23:00 Test Item Value Reference Range Interpretation Comments AGAP (test code = AGAP) 9.6 10.0-20.0 [facility]2020-10-30 21:23:00 Test Item Value Reference Range Interpretation Comments Calcium Lvl (test code = Calcium Lvl) 8.3 8.5-10.5 [facility]Law[facility] LaboratoryFORMERLY [facility] WA[facility] [id number] 21:23:00 Test Item Value Reference Range Interpretation Comments eGFR (test code = eGFR) 5 [facility]2020-10-30 21:23:00 Test Item Value Reference Range Interpretation Comments Glucose Lvl (test code = Glucose Lvl) 72 70-99 [facility] [id number] 21:23:00 Test Item Value Reference Range Interpretation Comments BUN (test code = BUN) 28 7-22 [facility]Law[facility] LaboratoryFORMERLY [facility] WA[facility] [id number] 21:23:00 Test Item Value Reference Range Interpretation Comments Creatinine Lvl (test code = Creatinine 9.63 0.50-1.40 Lvl) [facility] [id number] 21:23:00 Test Item Value Reference Range Interpretation Comments Sodium Lvl (test code = Sodium Lvl) 137 135-145 [facility] [id number] 21:23:00 Test Item Value Reference Range Interpretation Comments Potassium Lvl (test code = Potassium 3.6 3.5-5.1 Lvl) [facility]Law[facility] LaboratoryFORMERLY [facility] WA[facility] [id number] 21:23:00 Test Item Value Reference Range Interpretation Comments Chloride Lvl (test code = Chloride Lvl) 99 95-109 [facility] [id number] 21:23:00 Test Item Value Reference Range Interpretation Comments CO2 (test code = CO2) 32 24-32 [facility]Law[facility] LaboratoryFORMERLY [facility] WA[facility] [id number] 21:23:00 Test Item Value Reference Range Interpretation Comments AGAP (test code = AGAP) 9.6 10.0-20.0 [facility] [id number] 21:23:00 Test Item Value Reference Range Interpretation Comments Calcium Lvl (test code = Calcium Lvl) 8.3 8.5-10.5 [facility] [id number] 21:23:00 Test Item Value Reference Range Interpretation Comments eGFR (test code = eGFR) 5 [facility]EjtialgTEFDAIJKNM2860-50-46 15:21:00 Test Item Value Reference Range Interpretation Comments Coronavirus (COVID-19) Not Detected JUVENCIO (test code = (08/07/20 10:21 AM) Coronavirus (COVID-19) JUVENCIO) [facility] CenterLhdypdhCYFYHLGYVR3301-22-15 15:21:00 Test Item Value Reference Range Interpretation Comments Coronavirus (COVID-19) Not Detected JUVENCIO (test code = (08/07/20 10:21 AM) Coronavirus (COVID-19) JUVENCIO) [facility] [id number] 15:21:00 Test Item Value Reference Range Interpretation Comments Coronavirus (COVID-19) Not Detected JUVENCIO (test code = (08/07/20 10:21 AM) Coronavirus (COVID-19) JUVENCIO) [facility] [id number] 08:08:00 Test Item Value Reference Range Interpretation Comments Total CK (test code = Total CK) 50 12-191 [facility] [id number] 08:08:00 Test Item Value Reference Range Interpretation Comments B/C Ratio (test code = B/C Ratio) 3 1 6-25 [facility]2020-10-30 08:08:00 Test Item Value Reference Range Interpretation Comments Total Protein (test code = Total 4.5 6.4-8.4 Protein) [facility]2020-10-30 08:08:00 Test Item Value Reference Range Interpretation Comments Albumin Lvl (test code = Albumin Lvl) 1.4 3.5-5.0 [facility] [id number] 08:08:00 Test Item Value Reference Range Interpretation Comments Globulin (test code = Globulin) 3.1 2.7-4.2 [facility] [id number] 08:08:00 Test Item Value Reference Range Interpretation Comments A/G Ratio (test code = A/G Ratio) 0.5 1 0.7-1.6 [facility] [id number] 08:08:00 Test Item Value Reference Range Interpretation Comments ALT (test code = ALT) 15 See_Comment [Auto mated message] The system which ge nerated this result transmit emerson reference range : <=65. The reference range was not used to interpr et this result as erinn l/abnormal. [facility] [employer] [id number] 08:08:00 Test Item Value Reference Range Interpretation Comments AST (test code = AST) 16 See_Comment [Auto mated message] The system which ge nerated this result transmit emerson reference range : <=37. The reference range was not used to interpr et this result as erinn l/abnormal. [facility] [employer] [id number] 08:08:00 Test Item Value Reference Range Interpretation Comments Alk Phos (test code = Alk Phos) 82 39-136 [facility] [id number] 08:08:00 Test Item Value Reference Range Interpretation Comments Bili Total (test code = Bili Total) 0.4 0.2-1.3 [facility] [id number] 08:08:00 Test Item Value Reference Range Interpretation Comments Magnesium Lvl (test code = Magnesium 1.7 1.8-2.4 Lvl) [facility] [id number] 08:08:00 Test Item Value Reference Range Interpretation Comments Phosphorus (test code = Phosphorus) 3.8 2.5-4.5 [facility] HospitalEjsakbhKEFOIIGSFC1477-77-10 08:08:00 Test Item Value Reference Range Interpretation Comments PT (test code = PT) 13.0 s 12.0-14.7 [facility]KxnvnkdXDDDUXRCQM2826-53-38 08:08:00 Test Item Value Reference Range Interpretation Comments INR (test code = INR) 0.98 1 0.85-1.17 [facility]QpdkolpXQNQSDPBUB6817-85-75 08:08:00 Test Item Value Reference Range Interpretation Comments PTT (test code = PTT) 30.5 s 22.9-35.8 [facility] HospitalLmzjedgRNRVQYZGRB4245-60-65 08:08:00 Test Item Value Reference Range Interpretation Comments Basophils # (test code 0.1 See_Comment [Aut omated message] The = Basophils #) system which generated this result tra nsmitted reference range : <=0.2. The reference r yared was not used to int erpret this result as normal/abnormal . [facility] [employer]CARDIAC [id number] 08:08:00 Test Item Value Reference Range Interpretation Comments Total CK (test code = Total CK) 50 12-[address] [facility] [employer] [id number] 08:08:00 Test Item Value Reference Range Interpretation Comments B/C Ratio (test code = B/C Ratio) 3 1 6-[address] [facility] [employer] [id number] 08:08:00 Test Item Value Reference Range Interpretation Comments Total Protein (test code = Total 4.5 6.4-8.4 Protein) [facility] [employer] [id number] 08:08:00 Test Item Value Reference Range Interpretation Comments Albumin Lvl (test code = Albumin Lvl) 1.4 3.5-5.[address] [facility] [employer] [id number] 08:08:00 Test Item Value Reference Range Interpretation Comments Globulin (test code = Globulin) 3.1 2.7-4.[address] [facility] [employer] [id number] 08:08:00 Test Item Value Reference Range Interpretation Comments A/G Ratio (test code = A/G Ratio) 0.5 1 0.7-1.[address] [facility] [employer] [id number] 08:08:00 Test Item Value Reference Range Interpretation Comments ALT (test code = ALT) 15 See_Comment [Auto mated message] The system which ge nerated this result transmit emerson reference range : <=65. The reference range was not used to interpr et this result as erinn l/abnormal. [facility] [employer] [id number] 08:08:00 Test Item Value Reference Range Interpretation Comments AST (test code = AST) 16 See_Comment [Auto mated message] The system which ge nerated this result transmit emerson reference range : <=37. The reference range was not used to interpr et this result as erinn l/abnormal. [facility] [employer] [id number] 08:08:00 Test Item Value Reference Range Interpretation Comments Alk Phos (test code = Alk Phos) 82 39-[address] [facility] [employer] [id number] 08:08:00 Test Item Value Reference Range Interpretation Comments Bili Total (test code = Bili Total) 0.4 0.2-1.3 [facility] [id number] 08:08:00 Test Item Value Reference Range Interpretation Comments Magnesium Lvl (test code = Magnesium 1.7 1.8-2.4 Lvl) [facility] [id number] 08:08:00 Test Item Value Reference Range Interpretation Comments Phosphorus (test code = Phosphorus) 3.8 2.5-4.5 [facility] HospitalGqmmjsvTPUXRVFPAH0617-57-02 08:08:00 Test Item Value Reference Range Interpretation Comments PT (test code = PT) 13.0 s 12.0-14.7 [facility] HospitalPxlbachAOTLRIZXTW8033-17-79 08:08:00 Test Item Value Reference Range Interpretation Comments INR (test code = INR) 0.98 1 0.85-1.17 [facility]uqrgvINLKCBUQHK6813-61-69 08:08:00 Test Item Value Reference Range Interpretation Comments PTT (test code = PTT) 30.5 s 22.9-35.8 [facility] HospitalRdqtgsfXZAJQZVNED9149-61-21 08:08:00 Test Item Value Reference Range Interpretation Comments Basophils # (test code 0.1 See_Comment [Aut omated message] The = Basophils #) system which generated this result tra nsmitted reference range : <=0.2. The reference r yared was not used to int erpret this result as normal/abnormal . [facility] [id number] 08:08:00 Test Item Value Reference Range Interpretation Comments Total CK (test code = Total CK) 50 12-191 [facility] [id number] 08:08:00 Test Item Value Reference Range Interpretation Comments B/C Ratio (test code = B/C Ratio) 3 1 6-25 [facility] [id number] 08:08:00 Test Item Value Reference Range Interpretation Comments Total Protein (test code = Total 4.5 6.4-8.4 Protein) [facility] [id number] 08:08:00 Test Item Value Reference Range Interpretation Comments Albumin Lvl (test code = Albumin Lvl) 1.4 3.5-5.0 [facility] [id number] 08:08:00 Test Item Value Reference Range Interpretation Comments Globulin (test code = Globulin) 3.1 2.7-4.2 [facility] [id number] 08:08:00 Test Item Value Reference Range Interpretation Comments A/G Ratio (test code = A/G Ratio) 0.5 1 0.7-1.6 [facility] [id number] 08:08:00 Test Item Value Reference Range Interpretation Comments ALT (test code = ALT) 15 See_Comment [Auto mated message] The system which ge nerated this result transmit emerson reference range : <=65. The reference range was not used to interpr et this result as erinn l/abnormal. [facility] [id number] 08:08:00 Test Item Value Reference Range Interpretation Comments AST (test code = AST) 16 See_Comment [Auto mated message] The system which ge nerated this result transmit emerson reference range : <=37. The reference range was not used to interpr et this result as erinn l/abnormal. [facility] [id number] 08:08:00 Test Item Value Reference Range Interpretation Comments Alk Phos (test code = Alk Phos) 82 39-136 [facility] [id number] 08:08:00 Test Item Value Reference Range Interpretation Comments Bili Total (test code = Bili Total) 0.4 0.2-1.3 [facility] [id number] 08:08:00 Test Item Value Reference Range Interpretation Comments Magnesium Lvl (test code = Magnesium 1.7 1.8-2.4 Lvl) [facility] [id number] 08:08:00 Test Item Value Reference Range Interpretation Comments Phosphorus (test code = Phosphorus) 3.8 2.5-4.5 [facility] Ho[id number] 08:08:00 Test Item Value Reference Range Interpretation Comments PT (test code = PT) 13.0 s 12.0-14.7 [facility] HospitalRflbdvfNTFBMTJQRJ9551-44-58 08:08:00 Test Item Value Reference Range Interpretation Comments INR (test code = INR) 0.98 1 0.85-1.17 [facility] Hos[id number] 08:08:00 Test Item Value Reference Range Interpretation Comments PTT (test code = PTT) 30.5 s 22.9-35.8 [facility] Ho[id number] 08:08:00 Test Item Value Reference Range Interpretation Comments Basophils # (test code 0.1 See_Comment [Aut omated message] The = Basophils #) system which generated this result tra nsmitted reference range : <=0.2. The reference r yared was not used to int erpret this result as normal/abnormal . [place] [id number] 02:04:00 Test Item Value Reference Range Interpretation Comments Basophils # (test code 0.1 See_Comment [Aut omated message] The = Basophils #) system which generated this result tra nsmitted reference range : <=0.2. The reference r yared was not used to int erpret this result as normal/abnormal . [place] [id number] 02:04:00 Test Item Value Reference Range Interpretation Comments Basophils # (test code 0.1 See_Comment [Aut omated message] The = Basophils #) system which generated this result tra nsmitted reference range : <=0.2. The reference r yared was not used to int erpret this result as normal/abnormal . [place] 799140-10-30 02:04:00 Test Item Value Reference Range Interpretation Comments Basophils # (test code 0.1 See_Comment [Aut omated message] The = Basophils #) system which generated this result tra nsmitted reference range : <=0.2. The reference r yared was not used to int erpret this result as normal/abnormal . [facility] [id number] 01:34:00 Test Item Value Reference Range Interpretation Comments Total Protein (test code = Total 4.8 6.4-8.4 Protein) [facility] [id number] 01:34:00 Test Item Value Reference Range Interpretation Comments Albumin Lvl (test code = Albumin Lvl) 1.6 3.5-5.0 [facility] [id number] 01:34:00 Test Item Value Reference Range Interpretation Comments Globulin (test code = Globulin) 3.2 2.7-4.2 [facility] [id number] 01:34:00 Test Item Value Reference Range Interpretation Comments A/G Ratio (test code = A/G Ratio) 0.5 1 0.7-1.6 [facility] [id number] 01:34:00 Test Item Value Reference Range Interpretation Comments ALT (test code = ALT) 14 See_Comment [Auto mated message] The system which ge nerated this result transmit emerson reference range : <=65. The reference range was not used to interpr et this result as erinn l/abnormal. [employer]2020-10-30 01:34:00 Test Item Value Reference Range Interpretation Comments AST (test code = AST) 16 See_Comment [Auto mated message] The system which ge nerated this result transmit emerson reference range : <=37. The reference range was not used to interpr et this result as erinn l/abnormal. [employer]2020-10-30 01:34:00 Test Item Value Reference Range Interpretation Comments Alk Phos (test code = Alk Phos) 85 39-[address] [facility] [employer]2020-10-30 01:34:00 Test Item Value Reference Range Interpretation Comments Bili Total (test code = Bili Total) 0.4 0.2-1.[address] [facility] [employer]2020-10-30 01:34:00 Test Item Value Reference Range Interpretation Comments Bili Direct (test code no gt See_Comment [Aut omated message] The = Bili Direct) system which generated this result tra nsmitted reference range : <=0.3. The reference r yared was not used to int erpret this result as erinn l/abnormal. [facility] [employer]2020-10-30 01:34:00 Test Item Value Reference Range Interpretation Comments Bili Indirect Unable to See_Comment [Automated (test code = Bili Calculate message] T he system Indirect) which generated this result transmitted reference range : <=1.0. The reference range was not used to interpret this result as normal/abnormal . [facility] [employer]2020-10-30 01:34:00 Test Item Value Reference Range Interpretation Comments Total Protein (test code = Total 4.8 6.4-8.4 Protein) [facility] [employer]2020-10-30 01:34:00 Test Item Value Reference Range Interpretation Comments Albumin Lvl (test code = Albumin Lvl) 1.6 3.5-5.[address] [facility] [employer]2020-10-30 01:34:00 Test Item Value Reference Range Interpretation Comments Globulin (test code = Globulin) 3.2 2.7-4.[address] [facility] [employer]2020-10-30 01:34:00 Test Item Value Reference Range Interpretation Comments A/G Ratio (test code = A/G Ratio) 0.5 1 0.7-1.6 [place] [address]-10-30 01:34:00 Test Item Value Reference Range Interpretation Comments ALT (test code = ALT) 14 See_Comment [Auto mated message] The system which ge nerated this result transmit emerson reference range : <=65. The reference range was not used to interpr et this result as erinn l/abnormal. [facility] [id number] 01:34:00 Test Item Value Reference Range Interpretation Comments AST (test code = AST) 16 See_Comment [Auto mated message] The system which ge nerated this result transmit emerson reference range : <=37. The reference range was not used to interpr et this result as erinn l/abnormal. [place] [address]-10-30 01:34:00 Test Item Value Reference Range Interpretation Comments Alk Phos (test code = Alk Phos) 85 39-136 [facility] [id number] 01:34:00 Test Item Value Reference Range Interpretation Comments Bili Total (test code = Bili Total) 0.4 0.2-1.3 [facility] [id number] 01:34:00 Test Item Value Reference Range Interpretation Comments Bili Direct (test code no gt See_Comment [Aut omated message] The = Bili Direct) system which generated this result tra nsmitted reference range : <=0.3. The reference r yared was not used to int erpret this result as erinn l/abnormal. [facility] [id number] 01:34:00 Test Item Value Reference Range Interpretation Comments Bili Indirect Unable to See_Comment [Automated (test code = Bili Calculate message] T he system Indirect) which generated this result transmitted reference range : <=1.0. The reference range was not used to interpret this result as normal/abnormal . [facility] [id number] 01:34:00 Test Item Value Reference Range Interpretation Comments Total Protein (test code = Total 4.8 6.4-8.4 Protein) [facility] [id number] 01:34:00 Test Item Value Reference Range Interpretation Comments Albumin Lvl (test code = Albumin Lvl) 1.6 3.5-5.[address] [facility] [employer] [id number] 01:34:00 Test Item Value Reference Range Interpretation Comments Globulin (test code = Globulin) 3.2 2.7-4.[address] [facility] [employer] [id number] 01:34:00 Test Item Value Reference Range Interpretation Comments A/G Ratio (test code = A/G Ratio) 0.5 1 0.7-1.[address] [facility] [employer] [id number] 01:34:00 Test Item Value Reference Range Interpretation Comments ALT (test code = ALT) 14 See_Comment [Auto mated message] The system which ge nerated this result transmit emerson reference range : <=65. The reference range was not used to interpr et this result as erinn l/abnormal. [facility] [employer] [id number] 01:34:00 Test Item Value Reference Range Interpretation Comments AST (test code = AST) 16 See_Comment [Auto mated message] The system which ge nerated this result transmit emerson reference range : <=37. The reference range was not used to interpr et this result as erinn l/abnormal. [facility] [employer] [id number] 01:34:00 Test Item Value Reference Range Interpretation Comments Alk Phos (test code = Alk Phos) 85 39-[address] [facility] [employer] [id number] 01:34:00 Test Item Value Reference Range Interpretation Comments Bili Total (test code = Bili Total) 0.4 0.2-1.[address] [facility] [employer] [id number] 01:34:00 Test Item Value Reference Range Interpretation Comments Bili Direct (test code no gt See_Comment [Aut omated message] The = Bili Direct) system which generated this result tra nsmitted reference range : <=0.3. The reference r yared was not used to int erpret this result as erinn l/abnormal. [facility] [employer] [id number] 01:34:00 Test Item Value Reference Range Interpretation Comments Bili Indirect Unable to See_Comment [Automated (test code = Bili Calculate message] T he system Indirect) which generated this result transmitted reference range : <=1.0. The reference range was not used to interpret this result as normal/abnormal . [facility] HermannCARDIAC [id number] 22:24:00 Test Item Value Reference Range Interpretation Comments Troponin-I (test code 0.03 See_Comment [Auto mated message] The = Troponin-I) system which g enerated this result transmit emerson reference range : <=0.40. The reference r yared was not used to interpr et this result as erinn l/abnormal. [facility] [id number] 22:24:00 Test Item Value Reference Range Interpretation Comments Magnesium Lvl (test code = Magnesium 1.6 1.8-2.4 Lvl) [place] 799140-10-29 22:24:00 Test Item Value Reference Range Interpretation Comments Metamyelocytes (test code 1.0 See_Comment [ Automated message] = Metamyelocytes) The system which generated this result transmitted ref erence range: <=1.0. T he reference range was not used to int erpret this result as normal/abnormal . [facility] CentralTgkczsvXVOFDZZVGQ2985-79-95 22:24:00 Test Item Value Reference Range Interpretation Comments Myelocytes (test code = Myelocytes) 1.0 [place] 799140-10-29 22:24:00 Test Item Value Reference Range Interpretation Comments Toxic Gran (test code Moderate *ABN*(08/06/20 = Toxic Gran) 5:24 PM) [facility] [id number] 22:24:00 Test Item Value Reference Range Interpretation Comments PT (test code = PT) 12.9 s 12.0-14.7 [facility] CentralTcmounzKJWDPDIZBL6912-52-64 22:24:00 Test Item Value Reference Range Interpretation Comments INR (test code = INR) 0.97 1 0.85-1.17 [place] 799140-10-29 22:24:00 Test Item Value Reference Range Interpretation Comments Bands (test code = 2.0 See_Comment [Automat ed message] The Bands) system which ge nerated this result transmit emerson reference range : <=11.0. The reference r yared was not used to interpr et this result as erinn l/abnormal. [facility] CentralVvxlfxqNEMZEHVWNE1524-82-18 22:24:00 Test Item Value Reference Range Interpretation Comments Atypical Lymphs (test code = Atypical 0.0 Lymphs) [facility] CentralYkwwhiqXTDOUNWZAK7536-42-52 22:24:00 Test Item Value Reference Range Interpretation Comments RBC Morph (test code = Normal (08/06/20 5:24 RBC Morph) PM) [facility] H[id number] 22:24:00 Test Item Value Reference Range Interpretation Comments Plt Morph (test code = Normal (08/06/20 5:24 Plt Morph) PM) [facility] [id number] 22:24:00 Test Item Value Reference Range Interpretation Comments Troponin-I (test code 0.03 See_Comment [Auto mated message] The = Troponin-I) system which g enerated this result transmit emerson reference range : <=0.40. The reference r yared was not used to interpr et this result as erinn l/abnormal. [facility] [id number] 22:24:00 Test Item Value Reference Range Interpretation Comments Magnesium Lvl (test code = Magnesium 1.6 1.8-2.4 Lvl) [facility] C[id number] 22:24:00 Test Item Value Reference Range Interpretation Comments Metamyelocytes (test code 1.0 See_Comment [ Automated message] = Metamyelocytes) The system which generated this result transmitted ref erence range: <=1.0. T he reference range was not used to int erpret this result as normal/abnormal . [facility] CentralG[id number] 22:24:00 Test Item Value Reference Range Interpretation Comments Myelocytes (test code = Myelocytes) 1.0 [place] 799140-10-29 22:24:00 Test Item Value Reference Range Interpretation Comments Toxic Gran (test code Moderate *ABN*(08/06/20 = Toxic Gran) 5:24 PM) [id number] 22:24:00 Test Item Value Reference Range Interpretation Comments PT (test code = PT) 12.9 s 12.0-14.7 [facility] HospitalFywaodtTIGUVNYIFI6096-03-95 22:24:00 Test Item Value Reference Range Interpretation Comments INR (test code = INR) 0.97 1 0.85-1.17 [facility] CentralWccakveGWCHJYPEFI2650-18-46 22:24:00 Test Item Value Reference Range Interpretation Comments Bands (test code = 2.0 See_Comment [Automat ed message] The Bands) system which ge nerated this result transmit emerson reference range : <=11.0. The reference r yared was not used to interpr et this result as erinn l/abnormal. [facility] H[id number] 22:24:00 Test Item Value Reference Range Interpretation Comments Atypical Lymphs (test code = Atypical 0.0 Lymphs) [facility] HospitalUaaoffbUPAIZKVVEU2989-08-31 22:24:00 Test Item Value Reference Range Interpretation Comments RBC Morph (test code = Normal (08/06/20 5:24 RBC Morph) PM) [facility] HospitalLhpkwblAYZPESUEBE4115-21-21 22:24:00 Test Item Value Reference Range Interpretation Comments Plt Morph (test code = Normal (08/06/20 5:24 Plt Morph) PM) [facility] [id number] 22:24:00 Test Item Value Reference Range Interpretation Comments Troponin-I (test code 0.03 See_Comment [Auto mated message] The = Troponin-I) system which g enerated this result transmit emerson reference range : <=0.40. The reference r yared was not used to interpr et this result as erinn l/abnormal. [facility]CHE[facility] [id number] 22:24:00 Test Item Value Reference Range Interpretation Comments Magnesium Lvl (test code = Magnesium 1.6 1.8-2.4 Lvl) [facility] CentralSgguzudEWZFSPEFWM8410-54-97 22:24:00 Test Item Value Reference Range Interpretation Comments Metamyelocytes (test code 1.0 See_Comment [ Automated message] = Metamyelocytes) The system which generated this result transmitted ref erence range: <=1.0. T he reference range was not used to int erpret this result as normal/abnormal . [facility]QvsjnotIAHBLWTQCP0999-02-66 22:24:00 Test Item Value Reference Range Interpretation Comments Myelocytes (test code = Myelocytes) 1.0 [facility] CentralXdgpoysPRLCEZWYPA0741-50-79 22:24:00 Test Item Value Reference Range Interpretation Comments Toxic Gran (test code Moderate *ABN*(08/06/20 = Toxic Gran) 5:24 PM) [facility] CentralKziyulyLQXUSTKRWX0312-09-01 22:24:00 Test Item Value Reference Range Interpretation Comments PT (test code = PT) 12.9 s 12.0-14.7 [facility]YuwudocQXUUWBTROE0752-76-82 22:24:00 Test Item Value Reference Range Interpretation Comments INR (test code = INR) 0.97 1 0.85-1.17 [facility] HospitalRipkruiXGIWJUVMRE6206-27-72 22:24:00 Test Item Value Reference Range Interpretation Comments Bands (test code = 2.0 See_Comment [Automat ed message] The Bands) system which ge nerated this result transmit emerson reference range : <=11.0. The reference r yared was not used to interpr et this result as erinn l/abnormal. [facility] HospitalPywarfvPZGBGCPQZR6973-69-37 22:24:00 Test Item Value Reference Range Interpretation Comments Atypical Lymphs (test code = Atypical 0.0 Lymphs) [facility] HospitalFwcqtsuEBXDEDBTLG8090-68-61 22:24:00 Test Item Value Reference Range Interpretation Comments RBC Morph (test code = Normal (08/06/20 5:24 RBC Morph) PM) [facility] HospitalHjebwpwVSKTUASJWA7971-90-00 22:24:00 Test Item Value Reference Range Interpretation Comments Plt Morph (test code = Normal (08/06/20 5:24 Plt Morph) PM) [facility] [id number] 13:32:00 Test Item Value Reference Range Interpretation Comments Troponin-I (test code 0.03 See_Comment [Auto mated message] The = Troponin-I) system which g enerated this result transmit emerson reference range : <=0.40. The reference r yared was not used to interpr et this result as erinn l/abnormal. [facility] [id number] 13:32:00 Test Item Value Reference Range Interpretation Comments Glucose Lvl (test code = Glucose Lvl) 101 70-99 [facility] [id number] 13:32:00 Test Item Value Reference Range Interpretation Comments BUN (test code = BUN) 25 7-22 [facility] [id number] 13:32:00 Test Item Value Reference Range Interpretation Comments Creatinine Lvl (test code = Creatinine 9.66 0.50-1.40 Lvl) [facility] [id number] 13:32:00 Test Item Value Reference Range Interpretation Comments Sodium Lvl (test code = Sodium Lvl) 132 135-145 [facility] [id number] 13:32:00 Test Item Value Reference Range Interpretation Comments Potassium Lvl (test code = Potassium 3.0 3.5-5.1 Lvl) [facility] [id number] 13:32:00 Test Item Value Reference Range Interpretation Comments Chloride Lvl (test code = Chloride Lvl) 91 95-109 [place] 065730-10-16 13:32:00 Test Item Value Reference Range Interpretation Comments CO2 (test code = CO2) 32 24-32 [facility] [id number] 13:32:00 Test Item Value Reference Range Interpretation Comments AGAP (test code = AGAP) 12.0 10.0-20.0 [facility] [id number] 13:32:00 Test Item Value Reference Range Interpretation Comments Calcium Lvl (test code = Calcium Lvl) 8.7 8.5-10.5 [facility] [id number] 13:32:00 Test Item Value Reference Range Interpretation Comments B/C Ratio (test code = B/C Ratio) 3 1 6-25 [place] [address]-10-16 13:32:00 Test Item Value Reference Range Interpretation Comments Total Protein (test code = Total 4.9 6.4-8.4 Protein) [facility] [id number] 13:32:00 Test Item Value Reference Range Interpretation Comments Albumin Lvl (test code = Albumin Lvl) 1.5 3.5-5.0 [facility]2020-10-16 13:32:00 Test Item Value Reference Range Interpretation Comments Globulin (test code = Globulin) 3.4 2.7-4.2 [place] 065730-10-16 13:32:00 Test Item Value Reference Range Interpretation Comments A/G Ratio (test code = A/G Ratio) 0.4 1 0.7-1.6 [place] [address]-10-16 13:32:00 Test Item Value Reference Range Interpretation Comments ALT (test code = ALT) 16 See_Comment [Auto mated message] The system which ge nerated this result transmit emerson reference range : <=65. The reference range was not used to interpr et this result as erinn l/abnormal. [facility] [id number] 13:32:00 Test Item Value Reference Range Interpretation Comments AST (test code = AST) 22 See_Comment [Auto mated message] The system which ge nerated this result transmit emerson reference range : <=37. The reference range was not used to interpr et this result as erinn l/abnormal. [facility] [id number] 13:32:00 Test Item Value Reference Range Interpretation Comments Alk Phos (test code = Alk Phos) 88 39-136 [facility] [id number] 13:32:00 Test Item Value Reference Range Interpretation Comments Bili Total (test code = Bili Total) 0.5 0.2-1.3 [facility] [id number] 13:32:00 Test Item Value Reference Range Interpretation Comments eGFR (test code = eGFR) 5 [facility] HospitalNxbavrqSOHESOIYHX1568-75-66 13:32:00 Test Item Value Reference Range Interpretation Comments WBC (test code = WBC) 6.2 3.7-10.4 [facility] CentralBxialcaLZFZLESLZK5967-97-58 13:32:00 Test Item Value Reference Range Interpretation Comments RBC (test code = RBC) 2.89 4.70-6.10 [facility] HospitalFrjqcfwWONDRPNMOZ3300-16-80 13:32:00 Test Item Value Reference Range Interpretation Comments Hgb (test code = Hgb) 8.4 14.0-18.0 [facility] HospitalAbdvpslQCZKTUQFXQ9426-94-62 13:32:00 Test Item Value Reference Range Interpretation Comments Hct (test code = Hct) 24.1 42.0-54.0 [facility] CentralCteyrkwJKOKHPZOUM5359-90-75 13:32:00 Test Item Value Reference Range Interpretation Comments MCV (test code = MCV) 83.3 80.0-94.0 [facility] HospitalBcdjkpfPLMIQXRRJH0747-97-32 13:32:00 Test Item Value Reference Range Interpretation Comments MCH (test code = MCH) 29.0 pg 27.0-31.0 [facility] HospitalSrellpqVNNVMSBUWI2412-89-37 13:32:00 Test Item Value Reference Range Interpretation Comments MCHC (test code = MCHC) 34.8 32.0-36.0 [place] 799140-10-16 13:32:00 Test Item Value Reference Range Interpretation Comments RDW (test code = RDW) 13.6 11.5-14.5 [place] 799140-10-16 13:32:00 Test Item Value Reference Range Interpretation Comments Platelet (test code = Platelet) 221 133-450 [facility] CentralCgkvzwhXYRAUVUDVN2433-13-64 13:32:00 Test Item Value Reference Range Interpretation Comments MPV (test code = MPV) 6.6 7.4-10.4 [place] 799140-10-16 13:32:00 Test Item Value Reference Range Interpretation Comments Segs (test code = Segs) 73.5 45.0-75.0 [facility] CentralQdnuxikVIVZTDYDGE6609-70-95 13:32:00 Test Item Value Reference Range Interpretation Comments Lymphocytes (test code = Lymphocytes) 11.4 20.0-40.0 [place] 799140-10-16 13:32:00 Test Item Value Reference Range Interpretation Comments Monocytes (test code = Monocytes) 8.7 2.0-12.0 [facility] CentralWfptxzhRPGOBIMKOI9548-63-71 13:32:00 Test Item Value Reference Range Interpretation Comments Eosinophils (test code = 5.4 See_Comment [A utomated message] The Eosinophils) system which ge nerated this result tra nsmitted reference range : <=4.0. The reference r yared was not used to int erpret this result as normal/abnormal . [facility] CentralDrmhhjzHIMWMEUWNA8307-03-02 13:32:00 Test Item Value Reference Range Interpretation Comments Basophils (test code = 1.0 See_Comment [Aut omated message] The Basophils) system which ge nerated this result tra nsmitted reference range : <=1.0. The reference r yared was not used to int erpret this result as normal/abnormal . [facility] CentralNmqfyfcBKZKPAZUGR5608-28-05 13:32:00 Test Item Value Reference Range Interpretation Comments Neutrophils # (test code = Neutrophils 4.5 1.5-8.1 #) [place] 799140-10-16 13:32:00 Test Item Value Reference Range Interpretation Comments Lymphocytes # (test code = Lymphocytes 0.7 1.0-5.5 #) [facility] CentralPljtwbcFEAWPTGBVI7476-32-61 13:32:00 Test Item Value Reference Range Interpretation Comments Monocytes # (test code 0.5 See_Comment [Aut omated message] The = Monocytes #) system which generated this result tra nsmitted reference range : <=0.8. The reference r yared was not used to int erpret this result as normal/abnormal . [facility] HospitalHilvxlsLNBIKJGRQK0146-83-30 13:32:00 Test Item Value Reference Range Interpretation Comments Eosinophils # (test code 0.3 See_Comment [A utomated message] The = Eosinophils #) system whic h generated this result tra nsmitted reference range : <=0.5. The reference r yared was not used to int erpret this result as normal/abnormal . [facility] HospitalQkjudmfOICZABNLVE7489-88-65 13:32:00 Test Item Value Reference Range Interpretation Comments Basophils # (test code 0.1 See_Comment [Aut omated message] The = Basophils #) system which generated this result tra nsmitted reference range : <=0.2. The reference r yared was not used to int erpret this result as normal/abnormal . [facility] [id number] 13:32:00 Test Item Value Reference Range Interpretation Comments Troponin-I (test code 0.03 See_Comment [Auto mated message] The = Troponin-I) system which g enerated this result transmit emerson reference range : <=0.40. The reference r yared was not used to interpr et this result as erinn l/abnormal. [facility] [employer] [id number] 13:32:00 Test Item Value Reference Range Interpretation Comments Glucose Lvl (test code = Glucose Lvl) 101 70-99 [facility] [id number] 13:32:00 Test Item Value Reference Range Interpretation Comments BUN (test code = BUN) 25 7-22 [facility] [id number] 13:32:00 Test Item Value Reference Range Interpretation Comments Creatinine Lvl (test code = Creatinine 9.66 0.50-1.40 Lvl) [facility] [employer] [id number] 13:32:00 Test Item Value Reference Range Interpretation Comments Sodium Lvl (test code = Sodium Lvl) 132 135-[address] [facility] [employer] [id number] 13:32:00 Test Item Value Reference Range Interpretation Comments Potassium Lvl (test code = Potassium 3.0 3.5-5.1 Lvl) [facility] [employer] [id number] 13:32:00 Test Item Value Reference Range Interpretation Comments Chloride Lvl (test code = Chloride Lvl) 91 95-109 [place] [address]-10-16 13:32:00 Test Item Value Reference Range Interpretation Comments CO2 (test code = CO2) 32 24-32 [facility] [id number] 13:32:00 Test Item Value Reference Range Interpretation Comments AGAP (test code = AGAP) 12.0 10.0-20.0 [facility] [id number] 13:32:00 Test Item Value Reference Range Interpretation Comments Calcium Lvl (test code = Calcium Lvl) 8.7 8.5-10.5 [facility] [id number] 13:32:00 Test Item Value Reference Range Interpretation Comments B/C Ratio (test code = B/C Ratio) 3 1 6-25 [facility] [id number] 13:32:00 Test Item Value Reference Range Interpretation Comments Total Protein (test code = Total 4.9 6.4-8.4 Protein) [facility] [id number] 13:32:00 Test Item Value Reference Range Interpretation Comments Albumin Lvl (test code = Albumin Lvl) 1.5 3.5-5.0 [facility] [id number] 13:32:00 Test Item Value Reference Range Interpretation Comments Globulin (test code = Globulin) 3.4 2.7-4.[address] [facility] [employer] [id number] 13:32:00 Test Item Value Reference Range Interpretation Comments A/G Ratio (test code = A/G Ratio) 0.4 1 0.7-1.6 [facility] [id number] 13:32:00 Test Item Value Reference Range Interpretation Comments ALT (test code = ALT) 16 See_Comment [Auto mated message] The system which ge nerated this result transmit emerson reference range : <=65. The reference range was not used to interpr et this result as erinn l/abnormal. [facility] [employer] [id number] 13:32:00 Test Item Value Reference Range Interpretation Comments AST (test code = AST) 22 See_Comment [Auto mated message] The system which ge nerated this result transmit emerson reference range : <=37. The reference range was not used to interpr et this result as erinn l/abnormal. [facility] [employer] [id number] 13:32:00 Test Item Value Reference Range Interpretation Comments Alk Phos (test code = Alk Phos) 88 39-136 [facility]2020-10-16 13:32:00 Test Item Value Reference Range Interpretation Comments Bili Total (test code = Bili Total) 0.5 0.2-1.3 [facility] [id number] 13:32:00 Test Item Value Reference Range Interpretation Comments eGFR (test code = eGFR) 5 [facility] CentralHdtgmutGNHWOZTFQV1559-06-91 13:32:00 Test Item Value Reference Range Interpretation Comments WBC (test code = WBC) 6.2 3.7-10.4 [facility] CentralOxvrgmoQLJJYWZBAX3749-21-80 13:32:00 Test Item Value Reference Range Interpretation Comments RBC (test code = RBC) 2.89 4.70-6.10 [facility] CentralDnchpezSGDQURPZQO7127-34-31 13:32:00 Test Item Value Reference Range Interpretation Comments Hgb (test code = Hgb) 8.4 14.0-18.0 [facility] CentralEtqgmpoYYEQXKVXTI3399-42-86 13:32:00 Test Item Value Reference Range Interpretation Comments Hct (test code = Hct) 24.1 42.0-54.0 [facility] CentralGvfsmqdUCFWCGEETY3924-45-79 13:32:00 Test Item Value Reference Range Interpretation Comments MCV (test code = MCV) 83.3 80.0-94.0 [facility] CentralPbfamryKLDHFSSSBN2540-06-24 13:32:00 Test Item Value Reference Range Interpretation Comments MCH (test code = MCH) 29.0 pg 27.0-31.0 [facility] CentralDxavzwdRSRAHMGBCK6916-96-97 13:32:00 Test Item Value Reference Range Interpretation Comments MCHC (test code = MCHC) 34.8 32.0-36.0 [facility] CentralYusqoejKGKWHTIMAX0937-40-30 13:32:00 Test Item Value Reference Range Interpretation Comments RDW (test code = RDW) 13.6 11.5-14.5 [facility] CentralPouiaudYVHSVLTSYN5412-99-49 13:32:00 Test Item Value Reference Range Interpretation Comments Platelet (test code = Platelet) 221 133-450 [facility] CentralQgrgvqfIJGOVAEUVW9864-42-45 13:32:00 Test Item Value Reference Range Interpretation Comments MPV (test code = MPV) 6.6 7.4-10.4 [place] [address]-10-16 13:32:00 Test Item Value Reference Range Interpretation Comments Segs (test code = Segs) 73.5 45.0-75.0 [place] 799140-10-16 13:32:00 Test Item Value Reference Range Interpretation Comments Lymphocytes (test code = Lymphocytes) 11.4 20.0-40.0 [place] 799140-10-16 13:32:00 Test Item Value Reference Range Interpretation Comments Monocytes (test code = Monocytes) 8.7 2.0-12.0 [place] 799140-10-16 13:32:00 Test Item Value Reference Range Interpretation Comments Eosinophils (test code = 5.4 See_Comment [A utomated message] The Eosinophils) system which ge nerated this result tra nsmitted reference range : <=4.0. The reference r yared was not used to int erpret this result as normal/abnormal . [place] 799140-10-16 13:32:00 Test Item Value Reference Range Interpretation Comments Basophils (test code = 1.0 See_Comment [Aut omated message] The Basophils) system which ge nerated this result tra nsmitted reference range : <=1.0. The reference r yared was not used to int erpret this result as normal/abnormal . [facility] CentralNokkcyaMXPMCRGVKJ3741-90-38 13:32:00 Test Item Value Reference Range Interpretation Comments Neutrophils # (test code = Neutrophils 4.5 1.5-8.1 #) [facility] CentralQavzdobKOLJYCPCRQ1018-32-20 13:32:00 Test Item Value Reference Range Interpretation Comments Lymphocytes # (test code = Lymphocytes 0.7 1.0-5.5 #) [place] [address]-10-16 13:32:00 Test Item Value Reference Range Interpretation Comments Monocytes # (test code 0.5 See_Comment [Aut omated message] The = Monocytes #) system which generated this result tra nsmitted reference range : <=0.8. The reference r yared was not used to int erpret this result as normal/abnormal . [facility] CentralSeulqvkDOYQXCJKSS0378-66-69 13:32:00 Test Item Value Reference Range Interpretation Comments Eosinophils # (test code 0.3 See_Comment [A utomated message] The = Eosinophils #) system whic h generated this result tra nsmitted reference range : <=0.5. The reference r yared was not used to int erpret this result as normal/abnormal . [facility] HospitalLeqqysiJFEJGDIABS4087-54-89 13:32:00 Test Item Value Reference Range Interpretation Comments Basophils # (test code 0.1 See_Comment [Aut omated message] The = Basophils #) system which generated this result tra nsmitted reference range : <=0.2. The reference r yared was not used to int erpret this result as normal/abnormal . [facility] [id number] 13:32:00 Test Item Value Reference Range Interpretation Comments Troponin-I (test code 0.03 See_Comment [Auto mated message] The = Troponin-I) system which g enerated this result transmit emerson reference range : <=0.40. The reference r yared was not used to interpr et this result as erinn l/abnormal. [facility] [employer] [id number] 13:32:00 Test Item Value Reference Range Interpretation Comments Glucose Lvl (test code = Glucose Lvl) 101 70-[address] [facility] [employer] [id number] 13:32:00 Test Item Value Reference Range Interpretation Comments BUN (test code = BUN) 25 7-[address] [facility] [employer] [id number] 13:32:00 Test Item Value Reference Range Interpretation Comments Creatinine Lvl (test code = Creatinine 9.66 0.50-1.40 Lvl) [facility] [id number] 13:32:00 Test Item Value Reference Range Interpretation Comments Sodium Lvl (test code = Sodium Lvl) 132 135-[address] [facility] [employer] [id number] 13:32:00 Test Item Value Reference Range Interpretation Comments Potassium Lvl (test code = Potassium 3.0 3.5-5.1 Lvl) [facility] [employer] [id number] 13:32:00 Test Item Value Reference Range Interpretation Comments Chloride Lvl (test code = Chloride Lvl) 91 95-109 [facility] [id number] 13:32:00 Test Item Value Reference Range Interpretation Comments CO2 (test code = CO2) 32 24-[address] [facility] [employer] [id number] 13:32:00 Test Item Value Reference Range Interpretation Comments AGAP (test code = AGAP) 12.0 10.0-20.[address] [facility] [employer] [id number] 13:32:00 Test Item Value Reference Range Interpretation Comments Calcium Lvl (test code = Calcium Lvl) 8.7 8.5-10.5 [facility] [id number] 13:32:00 Test Item Value Reference Range Interpretation Comments B/C Ratio (test code = B/C Ratio) 3 1 6-[address] [facility] [employer] [id number] 13:32:00 Test Item Value Reference Range Interpretation Comments Total Protein (test code = Total 4.9 6.4-8.4 Protein) [facility] [employer] [id number] 13:32:00 Test Item Value Reference Range Interpretation Comments Albumin Lvl (test code = Albumin Lvl) 1.5 3.5-5.[address] [facility] [employer] [id number] 13:32:00 Test Item Value Reference Range Interpretation Comments Globulin (test code = Globulin) 3.4 2.7-4.[address] [facility] [employer] [id number] 13:32:00 Test Item Value Reference Range Interpretation Comments A/G Ratio (test code = A/G Ratio) 0.4 1 0.7-1.[address] [facility] [employer] [id number] 13:32:00 Test Item Value Reference Range Interpretation Comments ALT (test code = ALT) 16 See_Comment [Auto mated message] The system which ge nerated this result transmit emerson reference range : <=65. The reference range was not used to interpr et this result as erinn l/abnormal. [facility] [employer] [id number] 13:32:00 Test Item Value Reference Range Interpretation Comments AST (test code = AST) 22 See_Comment [Auto mated message] The system which ge nerated this result transmit emerson reference range : <=37. The reference range was not used to interpr et this result as erinn l/abnormal. [facility] [employer] [id number] 13:32:00 Test Item Value Reference Range Interpretation Comments Alk Phos (test code = Alk Phos) 88 39-[address] [facility] [employer] [id number] 13:32:00 Test Item Value Reference Range Interpretation Comments Bili Total (test code = Bili Total) 0.5 0.2-1.3 [facility]2020-10-16 13:32:00 Test Item Value Reference Range Interpretation Comments eGFR (test code = eGFR) 5 [facility] CentralXlrbwgqUCHLRZPESX2418-09-38 13:32:00 Test Item Value Reference Range Interpretation Comments WBC (test code = WBC) 6.2 3.7-10.4 [facility] CentralZihbekgPVEEPJPBXJ4039-19-18 13:32:00 Test Item Value Reference Range Interpretation Comments RBC (test code = RBC) 2.89 4.70-6.10 [facility] CentralFrtukciEHRIESJMKV7483-45-29 13:32:00 Test Item Value Reference Range Interpretation Comments Hgb (test code = Hgb) 8.4 14.0-18.0 [facility] CentralPtyblgdZSSHVCGGSU9882-59-33 13:32:00 Test Item Value Reference Range Interpretation Comments Hct (test code = Hct) 24.1 42.0-54.0 [facility] CentralKnvupvnXDCCADYCFR9803-27-81 13:32:00 Test Item Value Reference Range Interpretation Comments MCV (test code = MCV) 83.3 80.0-94.0 [facility] CentralQumsfghFNVULYBQDN7860-41-00 13:32:00 Test Item Value Reference Range Interpretation Comments MCH (test code = MCH) 29.0 pg 27.0-31.0 [facility] CentralXxraqpzITDMJYFRMF6516-86-56 13:32:00 Test Item Value Reference Range Interpretation Comments MCHC (test code = MCHC) 34.8 32.0-36.0 [facility] CentralXaegyqjWVHHOLOQDQ1950-88-68 13:32:00 Test Item Value Reference Range Interpretation Comments RDW (test code = RDW) 13.6 11.5-14.5 [facility] CentralPzmmhdvDWQMHBVWTR0885-14-75 13:32:00 Test Item Value Reference Range Interpretation Comments Platelet (test code = Platelet) 221 133-450 [facility] CentralXtkqkzsAFKAZKCMUI9235-89-17 13:32:00 Test Item Value Reference Range Interpretation Comments MPV (test code = MPV) 6.6 7.4-10.4 [facility] CentralLepoyzwOUUOBMAODO6684-82-75 13:32:00 Test Item Value Reference Range Interpretation Comments Segs (test code = Segs) 73.5 45.0-75.0 [id number] 13:32:00 Test Item Value Reference Range Interpretation Comments Lymphocytes (test code = Lymphocytes) 11.4 20.0-40.0 [facility] [id number] 13:32:00 Test Item Value Reference Range Interpretation Comments Monocytes (test code = Monocytes) 8.7 2.0-12.0 [facility] [id number] 13:32:00 Test Item Value Reference Range Interpretation Comments Eosinophils (test code = 5.4 See_Comment [A utomated message] The Eosinophils) system which ge nerated this result tra nsmitted reference range : <=4.0. The reference r yared was not used to int erpret this result as normal/abnormal . [facility] [id number] 13:32:00 Test Item Value Reference Range Interpretation Comments Basophils (test code = 1.0 See_Comment [Aut omated message] The Basophils) system which ge nerated this result tra nsmitted reference range : <=1.0. The reference r yared was not used to int erpret this result as normal/abnormal . [facility] [id number] 13:32:00 Test Item Value Reference Range Interpretation Comments Neutrophils # (test code = Neutrophils 4.5 1.5-8.1 #) [facility] [id number] 13:32:00 Test Item Value Reference Range Interpretation Comments Lymphocytes # (test code = Lymphocytes 0.7 1.0-5.5 #) [facility] [id number] 13:32:00 Test Item Value Reference Range Interpretation Comments Monocytes # (test code 0.5 See_Comment [Aut omated message] The = Monocytes #) system which generated this result tra nsmitted reference range : <=0.8. The reference r yared was not used to int erpret this result as normal/abnormal . [facility] [id number] 13:32:00 Test Item Value Reference Range Interpretation Comments Eosinophils # (test code 0.3 See_Comment [A utomated message] The = Eosinophils #) system whic h generated this result tra nsmitted reference range : <=0.5. The reference r yared was not used to int erpret this result as normal/abnormal . [facility] [id number] 13:32:00 Test Item Value Reference Range Interpretation Comments Basophils # (test code 0.1 See_Comment [Aut omated message] The = Basophils #) system which generated this result tra nsmitted reference range : <=0.2. The reference r yared was not used to int erpret this result as normal/abnormal . [facility]2020-10-07 08:13:00 Test Item Value Reference Range Interpretation Comments Glucose Lvl (test code = Glucose Lvl) 125 70-99 [facility] [id number] 08:13:00 Test Item Value Reference Range Interpretation Comments BUN (test code = BUN) 26 7-22 [place] 065730-10-07 08:13:00 Test Item Value Reference Range Interpretation Comments Creatinine Lvl (test code = Creatinine 9.23 0.50-1.40 Lvl) [facility]2020-10-07 08:13:00 Test Item Value Reference Range Interpretation Comments Sodium Lvl (test code = Sodium Lvl) 135 135-145 [facility] [id number] 08:13:00 Test Item Value Reference Range Interpretation Comments Potassium Lvl (test code = Potassium 3.8 3.5-5.1 Lvl) [facility] [id number] 08:13:00 Test Item Value Reference Range Interpretation Comments Chloride Lvl (test code = Chloride Lvl) 97 95-109 [facility] [id number] 08:13:00 Test Item Value Reference Range Interpretation Comments CO2 (test code = CO2) 28 24-32 [facility] [id number] 08:13:00 Test Item Value Reference Range Interpretation Comments Calcium Lvl (test code = Calcium Lvl) 9.0 8.5-10.5 [facility] [id number] 08:13:00 Test Item Value Reference Range Interpretation Comments AGAP (test code = AGAP) 13.8 10.0-20.0 [facility] [id number] 08:13:00 Test Item Value Reference Range Interpretation Comments eGFR (test code = eGFR) 6 [place] 065730-10-07 08:13:00 Test Item Value Reference Range Interpretation Comments Glucose Lvl (test code = Glucose Lvl) 125 70-99 [facility] [id number] 08:13:00 Test Item Value Reference Range Interpretation Comments BUN (test code = BUN) 26 7-22 [facility]2020-10-07 08:13:00 Test Item Value Reference Range Interpretation Comments Creatinine Lvl (test code = Creatinine 9.23 0.50-1.40 Lvl) [facility]2020-10-07 08:13:00 Test Item Value Reference Range Interpretation Comments Sodium Lvl (test code = Sodium Lvl) 135 135-145 [facility]2020-10-07 08:13:00 Test Item Value Reference Range Interpretation Comments Potassium Lvl (test code = Potassium 3.8 3.5-5.1 Lvl) [facility]2020-10-07 08:13:00 Test Item Value Reference Range Interpretation Comments Chloride Lvl (test code = Chloride Lvl) 97 95-109 [facility]2020-10-07 08:13:00 Test Item Value Reference Range Interpretation Comments CO2 (test code = CO2) 28 24-32 [facility]2020-10-07 08:13:00 Test Item Value Reference Range Interpretation Comments Calcium Lvl (test code = Calcium Lvl) 9.0 8.5-10.5 [facility]2020-10-07 08:13:00 Test Item Value Reference Range Interpretation Comments AGAP (test code = AGAP) 13.8 10.0-20.0 [facility]2020-10-07 08:13:00 Test Item Value Reference Range Interpretation Comments eGFR (test code = eGFR) 6 [facility]2020-10-07 08:13:00 Test Item Value Reference Range Interpretation Comments Glucose Lvl (test code = Glucose Lvl) 125 70-99 [facility]2020-10-07 08:13:00 Test Item Value Reference Range Interpretation Comments BUN (test code = BUN) 26 7-22 [place] 065730-10-07 08:13:00 Test Item Value Reference Range Interpretation Comments Creatinine Lvl (test code = Creatinine 9.23 0.50-1.40 Lvl) [facility]2020-10-07 08:13:00 Test Item Value Reference Range Interpretation Comments Sodium Lvl (test code = Sodium Lvl) 135 135-145 [place] 065730-10-07 08:13:00 Test Item Value Reference Range Interpretation Comments Potassium Lvl (test code = Potassium 3.8 3.5-5.1 Lvl) [facility] [id number] 08:13:00 Test Item Value Reference Range Interpretation Comments Chloride Lvl (test code = Chloride Lvl) 97 95-109 [facility] [id number] 08:13:00 Test Item Value Reference Range Interpretation Comments CO2 (test code = CO2) 28 24-32 [facility] [id number] 08:13:00 Test Item Value Reference Range Interpretation Comments Calcium Lvl (test code = Calcium Lvl) 9.0 8.5-10.5 [facility] [id number] 08:13:00 Test Item Value Reference Range Interpretation Comments AGAP (test code = AGAP) 13.8 10.0-20.0 [facility] [id number] 08:13:00 Test Item Value Reference Range Interpretation Comments eGFR (test code = eGFR) 6 [facility]ORLE[facility] [id number] 22:34:00 Test Item Value Reference Range Interpretation Comments C difficile DNA (test Negative (07/14/20 5:34 code = C difficile DNA) PM) [facility] [id number] 22:34:00 Test Item Value Reference Range Interpretation Comments Fecal Leukocyte (test None Seen (07/14/20 code = Fecal Leukocyte) 5:34 PM) [facility] [id number] 22:34:00 Test Item Value Reference Range Interpretation Comments C difficile DNA (test Negative (07/14/20 5:34 code = C difficile DNA) PM) [facility] [id number] 22:34:00 Test Item Value Reference Range Interpretation Comments Fecal Leukocyte (test None Seen (07/14/20 code = Fecal Leukocyte) 5:34 PM) [facility] [id number] 22:34:00 Test Item Value Reference Range Interpretation Comments C difficile DNA (test Negative (07/14/20 5:34 code = C difficile DNA) PM) [facility] [id number] 22:34:00 Test Item Value Reference Range Interpretation Comments Fecal Leukocyte (test None Seen (07/14/20 code = Fecal Leukocyte) 5:34 PM) [facility]2020-10-06 08:37:00 Test Item Value Reference Range Interpretation Comments Glucose Lvl (test code = Glucose Lvl) 125 70-99 [facility]2020-10-06 08:37:00 Test Item Value Reference Range Interpretation Comments BUN (test code = BUN) 30 7-22 [facility]2020-10-06 08:37:00 Test Item Value Reference Range Interpretation Comments Creatinine Lvl (test code = Creatinine 9.56 0.50-1.40 Lvl) [facility]2020-10-06 08:37:00 Test Item Value Reference Range Interpretation Comments Sodium Lvl (test code = Sodium Lvl) 136 135-145 [facility]2020-10-06 08:37:00 Test Item Value Reference Range Interpretation Comments Potassium Lvl (test code = Potassium 3.4 3.5-5.1 Lvl) [facility]2020-10-06 08:37:00 Test Item Value Reference Range Interpretation Comments Chloride Lvl (test code = Chloride Lvl) 99 95-109 [facility]2020-10-06 08:37:00 Test Item Value Reference Range Interpretation Comments CO2 (test code = CO2) 28 24-32 [facility]2020-10-06 08:37:00 Test Item Value Reference Range Interpretation Comments Calcium Lvl (test code = Calcium Lvl) 8.6 8.5-10.5 [facility]2020-10-06 08:37:00 Test Item Value Reference Range Interpretation Comments AGAP (test code = AGAP) 12.4 10.0-20.0 [facility]2020-10-06 08:37:00 Test Item Value Reference Range Interpretation Comments eGFR (test code = eGFR) 5 [facility]2020-10-06 08:37:00 Test Item Value Reference Range Interpretation Comments Glucose Lvl (test code = Glucose Lvl) 125 70-99 [facility]2020-10-06 08:37:00 Test Item Value Reference Range Interpretation Comments BUN (test code = BUN) 30 7-22 [facility]2020-10-06 08:37:00 Test Item Value Reference Range Interpretation Comments Creatinine Lvl (test code = Creatinine 9.56 0.50-1.40 Lvl) [place] [address]65730-10-06 08:37:00 Test Item Value Reference Range Interpretation Comments Sodium Lvl (test code = Sodium Lvl) 136 135-145 [place] 065730-10-06 08:37:00 Test Item Value Reference Range Interpretation Comments Potassium Lvl (test code = Potassium 3.4 3.5-5.1 Lvl) [place] [address]65730-10-06 08:37:00 Test Item Value Reference Range Interpretation Comments Chloride Lvl (test code = Chloride Lvl) 99 95-109 [place] [address]-10-06 08:37:00 Test Item Value Reference Range Interpretation Comments CO2 (test code = CO2) 28 24-32 [place] 065730-10-06 08:37:00 Test Item Value Reference Range Interpretation Comments Calcium Lvl (test code = Calcium Lvl) 8.6 8.5-10.5 [place] [address]-10-06 08:37:00 Test Item Value Reference Range Interpretation Comments AGAP (test code = AGAP) 12.4 10.0-20.0 [place] [address]65730-10-06 08:37:00 Test Item Value Reference Range Interpretation Comments eGFR (test code = eGFR) 5 [facility]2020-10-06 08:37:00 Test Item Value Reference Range Interpretation Comments Glucose Lvl (test code = Glucose Lvl) 125 70-99 [place] [address]65730-10-06 08:37:00 Test Item Value Reference Range Interpretation Comments BUN (test code = BUN) 30 7-22 [place] 065730-10-06 08:37:00 Test Item Value Reference Range Interpretation Comments Creatinine Lvl (test code = Creatinine 9.56 0.50-1.40 Lvl) [place] [address]65730-10-06 08:37:00 Test Item Value Reference Range Interpretation Comments Sodium Lvl (test code = Sodium Lvl) 136 135-145 [place] [address]65730-10-06 08:37:00 Test Item Value Reference Range Interpretation Comments Potassium Lvl (test code = Potassium 3.4 3.5-5.1 Lvl) [place] [address]65730-10-06 08:37:00 Test Item Value Reference Range Interpretation Comments Chloride Lvl (test code = Chloride Lvl) 99 95-109 [facility] [id number] 08:37:00 Test Item Value Reference Range Interpretation Comments CO2 (test code = CO2) 28 24-32 [facility] [id number] 08:37:00 Test Item Value Reference Range Interpretation Comments Calcium Lvl (test code = Calcium Lvl) 8.6 8.5-10.5 [facility] [id number] 08:37:00 Test Item Value Reference Range Interpretation Comments AGAP (test code = AGAP) 12.4 10.0-20.0 [facility] [id number] 08:37:00 Test Item Value Reference Range Interpretation Comments eGFR (test code = eGFR) 5 [facility]2020-10-06 01:30:00 Test Item Value Reference Range Interpretation Comments Color BF (test code = Light Yellow (07/13/20 Color BF) 8:30 PM) [facility]2020-10-06 01:30:00 Test Item Value Reference Range Interpretation Comments Clarity BF (test code = Clear (07/13/20 8:30 Clarity BF) PM) [facility]2020-10-06 01:30:00 Test Item Value Reference Range Interpretation Comments Supernat BF (test code Colorless (07/13/20 8:30 = Supernat BF) PM) [facility]2020-10-06 01:30:00 Test Item Value Reference Range Interpretation Comments Nucleated Cells BF (test code = 267 Nucleated Cells BF) [facility]2020-10-06 01:30:00 Test Item Value Reference Range Interpretation Comments RBC BF (test code = RBC BF) 365 [facility]2020-10-06 01:30:00 Test Item Value Reference Range Interpretation Comments CellCnt BF Type (test Periton (07/13/20 8:30 code = CellCnt BF Type) PM) [facility] [id number] 01:30:00 Test Item Value Reference Range Interpretation Comments Neutrophils BF (test code = Neutrophils 23 BF) [facility]2020-10-06 01:30:00 Test Item Value Reference Range Interpretation Comments Lymph BF (test code = Lymph BF) 16 [facility]2020-10-06 01:30:00 Test Item Value Reference Range Interpretation Comments Macrophage BF (test code = Macrophage 53 BF) [facility]2020-10-06 01:30:00 Test Item Value Reference Range Interpretation Comments Eos BF (test code = Eos BF) 6 [facility]2020-10-06 01:30:00 Test Item Value Reference Range Interpretation Comments Meso BF (test code = Meso BF) 2 [facility] [id number] 01:30:00 Test Item Value Reference Range Interpretation Comments Gram Stain Report Few WBC's No Organisms (test code = Gram Seen Stain Report) [facility] Aspirate/Body Fluid/[id number] 01:30:00 Test Item Value Reference Range Interpretation Comments Culture: Aspirate/Body Fluid/Tissue No Growth (test code = Culture: Aspirate/Body Fluid/Tissue) [facility]2020-10-06 01:30:00 Test Item Value Reference Range Interpretation Comments Color BF (test code = Light Yellow (07/13/20 Color BF) 8:30 PM) [facility]2020-10-06 01:30:00 Test Item Value Reference Range Interpretation Comments Clarity BF (test code = Clear (07/13/20 8:30 Clarity BF) PM) [facility]2020-10-06 01:30:00 Test Item Value Reference Range Interpretation Comments Supernat BF (test code Colorless (07/13/20 8:30 = Supernat BF) PM) [facility]2020-10-06 01:30:00 Test Item Value Reference Range Interpretation Comments Nucleated Cells BF (test code = 267 Nucleated Cells BF) [facility]2020-10-06 01:30:00 Test Item Value Reference Range Interpretation Comments RBC BF (test code = RBC BF) 365 [facility]2020-10-06 01:30:00 Test Item Value Reference Range Interpretation Comments CellCnt BF Type (test Periton (07/13/20 8:30 code = CellCnt BF Type) PM) [facility]2020-10-06 01:30:00 Test Item Value Reference Range Interpretation Comments Neutrophils BF (test code = Neutrophils 23 BF) [facility]2020-10-06 01:30:00 Test Item Value Reference Range Interpretation Comments Lymph BF (test code = Lymph BF) 16 [facility]2020-10-06 01:30:00 Test Item Value Reference Range Interpretation Comments Macrophage BF (test code = Macrophage 53 BF) [facility]2020-10-06 01:30:00 Test Item Value Reference Range Interpretation Comments Eos BF (test code = Eos BF) 6 [facility] [id number] 01:30:00 Test Item Value Reference Range Interpretation Comments Meso BF (test code = Meso BF) 2 [facility] [id number] 01:30:00 Test Item Value Reference Range Interpretation Comments Gram Stain Report Few WBC's No Organisms (test code = Gram Seen Stain Report) [facility] Aspirate/Body Fluid/[id number] 01:30:00 Test Item Value Reference Range Interpretation Comments Culture: Aspirate/Body Fluid/Tissue No Growth (test code = Culture: Aspirate/Body Fluid/Tissue) [facility]2020-10-06 01:30:00 Test Item Value Reference Range Interpretation Comments Color BF (test code = Light Yellow (07/13/20 Color BF) 8:30 PM) [facility]2020-10-06 01:30:00 Test Item Value Reference Range Interpretation Comments Clarity BF (test code = Clear (07/13/20 8:30 Clarity BF) PM) [facility]2020-10-06 01:30:00 Test Item Value Reference Range Interpretation Comments Supernat BF (test code Colorless (07/13/20 8:30 = Supernat BF) PM) [facility]2020-10-06 01:30:00 Test Item Value Reference Range Interpretation Comments Nucleated Cells BF (test code = 267 Nucleated Cells BF) [facility]2020-10-06 01:30:00 Test Item Value Reference Range Interpretation Comments RBC BF (test code = RBC BF) 365 [facility]2020-10-06 01:30:00 Test Item Value Reference Range Interpretation Comments CellCnt BF Type (test Periton (07/13/20 8:30 code = CellCnt BF Type) PM) [facility]2020-10-06 01:30:00 Test Item Value Reference Range Interpretation Comments Neutrophils BF (test code = Neutrophils 23 BF) [facility]2020-10-06 01:30:00 Test Item Value Reference Range Interpretation Comments Lymph BF (test code = Lymph BF) 16 [facility] [id number] 01:30:00 Test Item Value Reference Range Interpretation Comments Macrophage BF (test code = Macrophage 53 BF) [facility] [id number] 01:30:00 Test Item Value Reference Range Interpretation Comments Eos BF (test code = Eos BF) 6 [facility] [id number] 01:30:00 Test Item Value Reference Range Interpretation Comments Meso BF (test code = Meso BF) 2 [facility] HospitalG[facility] Stain [id number] 01:30:00 Test Item Value Reference Range Interpretation Comments Gram Stain Report Few WBC's No Organisms (test code = Gram Seen Stain Report) [facility]: Aspirate/Body Fluid/[id number] 01:30:00 Test Item Value Reference Range Interpretation Comments Culture: Aspirate/Body Fluid/Tissue No Growth (test code = Culture: Aspirate/Body Fluid/Tissue) [facility] [id number] 08:35:00 Test Item Value Reference Range Interpretation Comments Glucose Lvl (test code = Glucose Lvl) 113 70-99 [facility] [id number] 08:35:00 Test Item Value Reference Range Interpretation Comments BUN (test code = BUN) 29 7-22 [facility] [id number] 08:35:00 Test Item Value Reference Range Interpretation Comments Creatinine Lvl (test code = Creatinine 9.77 0.50-1.40 Lvl) [facility] [id number] 08:35:00 Test Item Value Reference Range Interpretation Comments Sodium Lvl (test code = Sodium Lvl) 133 135-145 [facility] [id number] 08:35:00 Test Item Value Reference Range Interpretation Comments Potassium Lvl (test code = Potassium 3.4 3.5-5.1 Lvl) [facility] [id number] 08:35:00 Test Item Value Reference Range Interpretation Comments Chloride Lvl (test code = Chloride Lvl) 97 95-109 [facility] [id number] 08:35:00 Test Item Value Reference Range Interpretation Comments CO2 (test code = CO2) 31 24-32 [facility] [id number] 08:35:00 Test Item Value Reference Range Interpretation Comments Calcium Lvl (test code = Calcium Lvl) 8.8 8.5-10.5 [place] [address]65730-10-05 08:35:00 Test Item Value Reference Range Interpretation Comments AGAP (test code = AGAP) 8.4 10.0-20.0 [place] 065730-10-05 08:35:00 Test Item Value Reference Range Interpretation Comments eGFR (test code = eGFR) 5 [place] 065730-10-05 08:35:00 Test Item Value Reference Range Interpretation Comments Glucose Lvl (test code = Glucose Lvl) 113 70-99 [place] 065730-10-05 08:35:00 Test Item Value Reference Range Interpretation Comments BUN (test code = BUN) 29 7-22 [place] 065730-10-05 08:35:00 Test Item Value Reference Range Interpretation Comments Creatinine Lvl (test code = Creatinine 9.77 0.50-1.40 Lvl) [place] [address]65730-10-05 08:35:00 Test Item Value Reference Range Interpretation Comments Sodium Lvl (test code = Sodium Lvl) 133 135-145 [place] 065730-10-05 08:35:00 Test Item Value Reference Range Interpretation Comments Potassium Lvl (test code = Potassium 3.4 3.5-5.1 Lvl) [facility]2020-10-05 08:35:00 Test Item Value Reference Range Interpretation Comments Chloride Lvl (test code = Chloride Lvl) 97 95-109 [place] 065730-10-05 08:35:00 Test Item Value Reference Range Interpretation Comments CO2 (test code = CO2) 31 24-32 [place] 065730-10-05 08:35:00 Test Item Value Reference Range Interpretation Comments Calcium Lvl (test code = Calcium Lvl) 8.8 8.5-10.5 [place] 065730-10-05 08:35:00 Test Item Value Reference Range Interpretation Comments AGAP (test code = AGAP) 8.4 10.0-20.0 [place] 065730-10-05 08:35:00 Test Item Value Reference Range Interpretation Comments eGFR (test code = eGFR) 5 [place] 065730-10-05 08:35:00 Test Item Value Reference Range Interpretation Comments Glucose Lvl (test code = Glucose Lvl) 113 70-99 [facility]2020-10-05 08:35:00 Test Item Value Reference Range Interpretation Comments BUN (test code = BUN) 29 7-22 [place] 065730-10-05 08:35:00 Test Item Value Reference Range Interpretation Comments Creatinine Lvl (test code = Creatinine 9.77 0.50-1.40 Lvl) [place] 065730-10-05 08:35:00 Test Item Value Reference Range Interpretation Comments Sodium Lvl (test code = Sodium Lvl) 133 135-145 [place] 065730-10-05 08:35:00 Test Item Value Reference Range Interpretation Comments Potassium Lvl (test code = Potassium 3.4 3.5-5.1 Lvl) [facility]2020-10-05 08:35:00 Test Item Value Reference Range Interpretation Comments Chloride Lvl (test code = Chloride Lvl) 97 95-109 [place] 065730-10-05 08:35:00 Test Item Value Reference Range Interpretation Comments CO2 (test code = CO2) 31 24-32 [place] 065730-10-05 08:35:00 Test Item Value Reference Range Interpretation Comments Calcium Lvl (test code = Calcium Lvl) 8.8 8.5-10.5 [facility]2020-10-05 08:35:00 Test Item Value Reference Range Interpretation Comments AGAP (test code = AGAP) 8.4 10.0-20.0 [facility]2020-10-05 08:35:00 Test Item Value Reference Range Interpretation Comments eGFR (test code = eGFR) 5 [facility] [facility]00 Test Item Value Reference Range Interpretation Comments Color BF (test code = Light Yellow (07/12/20 Color BF) 7:15 PM) [facility]2020-10-05 00:15:00 Test Item Value Reference Range Interpretation Comments Clarity BF (test code = Clear (07/12/20 7:15 Clarity BF) PM) [facility]2020-10-05 00:15:00 Test Item Value Reference Range Interpretation Comments Supernat BF (test code Colorless (07/12/20 7:15 = Supernat BF) PM) [place] [id number] 00:15:00 Test Item Value Reference Range Interpretation Comments Nucleated Cells BF (test code = 227 Nucleated Cells BF) [facility] [id number] 00:15:00 Test Item Value Reference Range Interpretation Comments RBC BF (test code = RBC BF) 247 [facility] [id number] 00:15:00 Test Item Value Reference Range Interpretation Comments Neutrophils BF (test code = Neutrophils 27 BF) [facility] [id number] 00:15:00 Test Item Value Reference Range Interpretation Comments Lymph BF (test code = Lymph BF) 15 [facility] [id number] 00:15:00 Test Item Value Reference Range Interpretation Comments Macrophage BF (test code = Macrophage 52 BF) [facility] [id number] 00:15:00 Test Item Value Reference Range Interpretation Comments Eos BF (test code = Eos BF) 3 [facility] [id number] 00:15:00 Test Item Value Reference Range Interpretation Comments Meso BF (test code = Few (07/12/20 7:15 PM) Meso BF) [facility] [id number] 00:15:00 Test Item Value Reference Range Interpretation Comments Other BF (test code = See Note 4(07/12/20 Other BF) 7:15 PM) [facility] [id number] 00:15:00 Test Item Value Reference Range Interpretation Comments CellCnt BF Type (test Periton (07/12/20 7:15 code = CellCnt BF Type) PM) [facility] [id number] 00:15:00 Test Item Value Reference Range Interpretation Comments Gram Stain Report Rare WBC's No Organisms (test code = Gram Seen Stain Report) [facility] Aspirate/Body Fluid/[id number] 00:15:00 Test Item Value Reference Range Interpretation Comments Culture: Aspirate/Body Fluid/Tissue No Growth (test code = Culture: Aspirate/Body Fluid/Tissue) [facility] [id number] 00:15:00 Test Item Value Reference Range Interpretation Comments Color BF (test code = Light Yellow (07/12/20 Color BF) 7:15 PM) [facility] [id number] 00:15:00 Test Item Value Reference Range Interpretation Comments Clarity BF (test code = Clear (07/12/20 7:15 Clarity BF) PM) [facility] [id number] 00:15:00 Test Item Value Reference Range Interpretation Comments Supernat BF (test code Colorless (07/12/20 7:15 = Supernat BF) PM) [facility] [id number] 00:15:00 Test Item Value Reference Range Interpretation Comments Nucleated Cells BF (test code = 227 Nucleated Cells BF) [facility] [id number] 00:15:00 Test Item Value Reference Range Interpretation Comments RBC BF (test code = RBC BF) 247 [facility] [id number] 00:15:00 Test Item Value Reference Range Interpretation Comments Neutrophils BF (test code = Neutrophils 27 BF) [facility] [id number] 00:15:00 Test Item Value Reference Range Interpretation Comments Lymph BF (test code = Lymph BF) 15 [facility] [id number] 00:15:00 Test Item Value Reference Range Interpretation Comments Macrophage BF (test code = Macrophage 52 BF) [facility] [id number] 00:15:00 Test Item Value Reference Range Interpretation Comments Eos BF (test code = Eos BF) 3 [facility] [id number] 00:15:00 Test Item Value Reference Range Interpretation Comments Meso BF (test code = Few (07/12/20 7:15 PM) Meso BF) [facility] [id number] 00:15:00 Test Item Value Reference Range Interpretation Comments Other BF (test code = See Note 4(07/12/20 Other BF) 7:15 PM) [facility] [id number] 00:15:00 Test Item Value Reference Range Interpretation Comments CellCnt BF Type (test Periton (07/12/20 7:15 code = CellCnt BF Type) PM) [facility] [id number] 00:15:00 Test Item Value Reference Range Interpretation Comments Gram Stain Report Rare WBC's No Organisms (test code = Gram Seen Stain Report) [facility] Aspirate/Body Fluid/[id number] 00:15:00 Test Item Value Reference Range Interpretation Comments Culture: Aspirate/Body Fluid/Tissue No Growth (test code = Culture: Aspirate/Body Fluid/Tissue) [id number] 00:15:00 Test Item Value Reference Range Interpretation Comments Color BF (test code = Light Yellow (07/12/20 Color BF) 7:15 PM) [facility] [id number] 00:15:00 Test Item Value Reference Range Interpretation Comments Clarity BF (test code = Clear (07/12/20 7:15 Clarity BF) PM) [facility] [id number] 00:15:00 Test Item Value Reference Range Interpretation Comments Supernat BF (test code Colorless (07/12/20 7:15 = Supernat BF) PM) [facility] [id number] 00:15:00 Test Item Value Reference Range Interpretation Comments Nucleated Cells BF (test code = 227 Nucleated Cells BF) [facility] [id number] 00:15:00 Test Item Value Reference Range Interpretation Comments RBC BF (test code = RBC BF) 247 [facility] [id number] 00:15:00 Test Item Value Reference Range Interpretation Comments Neutrophils BF (test code = Neutrophils 27 BF) [facility] [id number] 00:15:00 Test Item Value Reference Range Interpretation Comments Lymph BF (test code = Lymph BF) 15 [facility] [id number] 00:15:00 Test Item Value Reference Range Interpretation Comments Macrophage BF (test code = Macrophage 52 BF) [facility] [id number] 00:15:00 Test Item Value Reference Range Interpretation Comments Eos BF (test code = Eos BF) 3 [id number] 00:15:00 Test Item Value Reference Range Interpretation Comments Meso BF (test code = Few (07/12/20 7:15 PM) Meso BF) [facility] [id number] 00:15:00 Test Item Value Reference Range Interpretation Comments Other BF (test code = See Note 4(07/12/20 Other BF) 7:15 PM) [facility] [id number] 00:15:00 Test Item Value Reference Range Interpretation Comments CellCnt BF Type (test Periton (07/12/20 7:15 code = CellCnt BF Type) PM) [facility] [id number] 00:15:00 Test Item Value Reference Range Interpretation Comments Gram Stain Report Rare WBC's No Organisms (test code = Gram Seen Stain Report) [facility] HospitalCulture: Aspirate/Body Fluid/[id number] 00:15:00 Test Item Value Reference Range Interpretation Comments Culture: Aspirate/Body Fluid/Tissue No Growth (test code = Culture: Aspirate/Body Fluid/Tissue) [facility]SevtwhfDTKWVTAIRL3229-83-05 09:50:00 Test Item Value Reference Range Interpretation Comments Segs (test code = Segs) 74.0 45.0-75.0 [facility] CentralMfedlihANJNXBOYPT1209-19-42 09:50:00 Test Item Value Reference Range Interpretation Comments Lymphocytes (test code = Lymphocytes) 14.8 20.0-40.0 [place] [id number] 09:50:00 Test Item Value Reference Range Interpretation Comments Monocytes (test code = Monocytes) 7.1 2.0-12.0 [facility] CentralEmfdumwRMQWPMKZHY4139-86-98 09:50:00 Test Item Value Reference Range Interpretation Comments Eosinophils (test code = 3.5 See_Comment [A utomated message] The Eosinophils) system which ge nerated this result tra nsmitted reference range : <=4.0. The reference r yared was not used to int erpret this result as normal/abnormal . [facility] CentralSljuxhpEJOZBMEKIT8604-67-60 09:50:00 Test Item Value Reference Range Interpretation Comments Basophils (test code = 0.6 See_Comment [Aut omated message] The Basophils) system which ge nerated this result tra nsmitted reference range : <=1.0. The reference r yared was not used to int erpret this result as normal/abnormal . [facility] CentralBxrkpgjBDTKHRCTAQ0653-07-46 09:50:00 Test Item Value Reference Range Interpretation Comments Neutrophils # (test code = Neutrophils 4.9 1.5-8.1 #) [place] 799140-10-04 09:50:00 Test Item Value Reference Range Interpretation Comments Lymphocytes # (test code = Lymphocytes 1.0 1.0-5.5 #) [place] 799140-10-04 09:50:00 Test Item Value Reference Range Interpretation Comments Monocytes # (test code 0.5 See_Comment [Aut omated message] The = Monocytes #) system which generated this result tra nsmitted reference range : <=0.8. The reference r yared was not used to int erpret this result as normal/abnormal . [facility] CentralAxeupshNKLXFQGJLP7900-71-65 09:50:00 Test Item Value Reference Range Interpretation Comments Eosinophils # (test code 0.2 See_Comment [A utomated message] The = Eosinophils #) system Collaaj generated this result tra nsmitted reference range : <=0.5. The reference r yared was not used to int erpret this result as normal/abnormal . [facility] CentralMgecbiaZWRLXZYMYX2856-89-12 09:50:00 Test Item Value Reference Range Interpretation Comments WBC (test code = WBC) 6.7 3.7-10.4 [facility] CentralSivoqspCMQKRSAAQF6443-73-96 09:50:00 Test Item Value Reference Range Interpretation Comments RBC (test code = RBC) 2.86 4.70-6.10 [place] 799140-10-04 09:50:00 Test Item Value Reference Range Interpretation Comments Hgb (test code = Hgb) 8.3 14.0-18.0 [facility] CentralYewawqyTNXQOWCSOZ7731-52-85 09:50:00 Test Item Value Reference Range Interpretation Comments Hct (test code = Hct) 24.4 42.0-54.0 [facility] CentralAdomrrdTCFFSQAVMK4280-70-51 09:50:00 Test Item Value Reference Range Interpretation Comments MCV (test code = MCV) 85.1 80.0-94.0 [place] [address]-10-04 09:50:00 Test Item Value Reference Range Interpretation Comments MCH (test code = MCH) 29.0 pg 27.0-31.0 [facility] CentralUpddholEKHCUNQIHU8838-95-77 09:50:00 Test Item Value Reference Range Interpretation Comments MCHC (test code = MCHC) 34.1 32.0-36.0 [facility] CentralLrxhsqlARKAALLKLJ9613-53-67 09:50:00 Test Item Value Reference Range Interpretation Comments RDW (test code = RDW) 14.1 11.5-14.5 [facility] CentralUnthagjMKWFMTMFFQ2699-45-87 09:50:00 Test Item Value Reference Range Interpretation Comments Platelet (test code = Platelet) 209 133-450 [facility] CentralJbmlajyNNUNNKDWDV0617-68-91 09:50:00 Test Item Value Reference Range Interpretation Comments MPV (test code = MPV) 6.6 7.4-10.4 [facility] HospitalQfwsrlkPEUUYVVXRJ7189-72-12 09:50:00 Test Item Value Reference Range Interpretation Comments Vanco Lvl (test code = Vanco Lvl) 13.1 [facility]ZbdsmmwTHKLVYCCWP5958-87-33 09:50:00 Test Item Value Reference Range Interpretation Comments Segs (test code = Segs) 74.0 45.0-75.0 [facility] HospitalAlkxsufYFOSSFIRAR0918-17-26 09:50:00 Test Item Value Reference Range Interpretation Comments Lymphocytes (test code = Lymphocytes) 14.8 20.0-40.0 [facility] CentralLgquuxtEZHPPURIVX6095-25-53 09:50:00 Test Item Value Reference Range Interpretation Comments Monocytes (test code = Monocytes) 7.1 2.0-12.0 [facility] HospitalOirqcetENDTABWVGH7334-47-19 09:50:00 Test Item Value Reference Range Interpretation Comments Eosinophils (test code = 3.5 See_Comment [A utomated message] The Eosinophils) system which ge nerated this result tra nsmitted reference range : <=4.0. The reference r yared was not used to int erpret this result as normal/abnormal . [facility] CentralHorouhhNVMZZSXQBM6328-99-33 09:50:00 Test Item Value Reference Range Interpretation Comments Basophils (test code = 0.6 See_Comment [Aut omated message] The Basophils) system which ge nerated this result tra nsmitted reference range : <=1.0. The reference r yared was not used to int erpret this result as normal/abnormal . [facility] CentralRyuswsnENRHOLPGCT2961-38-09 09:50:00 Test Item Value Reference Range Interpretation Comments Neutrophils # (test code = Neutrophils 4.9 1.5-8.1 #) [facility] CentralKcezqkdZAWTPRAGIR1646-56-84 09:50:00 Test Item Value Reference Range Interpretation Comments Lymphocytes # (test code = Lymphocytes 1.0 1.0-5.5 #) [facility] CentralDlrilejROFLIQHXEG2479-91-90 09:50:00 Test Item Value Reference Range Interpretation Comments Monocytes # (test code 0.5 See_Comment [Aut omated message] The = Monocytes #) system which generated this result tra nsmitted reference range : <=0.8. The reference r yared was not used to int erpret this result as normal/abnormal . [place] 799140-10-04 09:50:00 Test Item Value Reference Range Interpretation Comments Eosinophils # (test code 0.2 See_Comment [A utomated message] The = Eosinophils #) system whic h generated this result tra nsmitted reference range : <=0.5. The reference r yared was not used to int erpret this result as normal/abnormal . [facility] CentralQcfqkvlPYCHOXXHUV4122-71-22 09:50:00 Test Item Value Reference Range Interpretation Comments WBC (test code = WBC) 6.7 3.7-10.4 [facility] CentralOsqvtolZDOKVGSPOY5163-10-99 09:50:00 Test Item Value Reference Range Interpretation Comments RBC (test code = RBC) 2.86 4.70-6.10 [facility] CentralNwbwhgzNESDGIBFXU0958-02-52 09:50:00 Test Item Value Reference Range Interpretation Comments Hgb (test code = Hgb) 8.3 14.0-18.0 [facility] CentralCebmbolODCFWDSZSE3208-23-09 09:50:00 Test Item Value Reference Range Interpretation Comments Hct (test code = Hct) 24.4 42.0-54.0 [facility] CentralVvznhbbOSUQVFYQFH1326-41-73 09:50:00 Test Item Value Reference Range Interpretation Comments MCV (test code = MCV) 85.1 80.0-94.0 [facility] CentralDcwubqtSLVWJEFPGM4963-18-43 09:50:00 Test Item Value Reference Range Interpretation Comments MCH (test code = MCH) 29.0 pg 27.0-31.0 [facility] CentralBeemkamXEPGAAFBYD4565-22-05 09:50:00 Test Item Value Reference Range Interpretation Comments MCHC (test code = MCHC) 34.1 32.0-36.0 [facility] CentralPgvmatqSCIATSDIIK3827-02-45 09:50:00 Test Item Value Reference Range Interpretation Comments RDW (test code = RDW) 14.1 11.5-14.5 [facility] CentralVexoalrTEDNMOHSDR8695-85-51 09:50:00 Test Item Value Reference Range Interpretation Comments Platelet (test code = Platelet) 209 133-450 [facility] CentralXkgoupwXPUUAIVYZB8173-62-19 09:50:00 Test Item Value Reference Range Interpretation Comments MPV (test code = MPV) 6.6 7.4-10.4 [facility] HospitalRlhvwbaEKLFFKGJPN6308-37-64 09:50:00 Test Item Value Reference Range Interpretation Comments Vanco Lvl (test code = Vanco Lvl) 13.1 [facility] CentralMneimzgWIJXSJRLCL8722-79-96 09:50:00 Test Item Value Reference Range Interpretation Comments Segs (test code = Segs) 74.0 45.0-75.0 [facility] CentralUupebqqPQXBFBYDIM5588-16-11 09:50:00 Test Item Value Reference Range Interpretation Comments Lymphocytes (test code = Lymphocytes) 14.8 20.0-40.0 [facility] CentralJxcxrxxHSBRYCGWWF8345-72-65 09:50:00 Test Item Value Reference Range Interpretation Comments Monocytes (test code = Monocytes) 7.1 2.0-12.0 [facility] CentralWptcauwEORUGKSNMX7532-18-94 09:50:00 Test Item Value Reference Range Interpretation Comments Eosinophils (test code = 3.5 See_Comment [A utomated message] The Eosinophils) system which ge nerated this result tra nsmitted reference range : <=4.0. The reference r yared was not used to int erpret this result as normal/abnormal . [facility] CentralLxfljjaJUGJOTHITC7505-27-45 09:50:00 Test Item Value Reference Range Interpretation Comments Basophils (test code = 0.6 See_Comment [Aut omated message] The Basophils) system which ge nerated this result tra nsmitted reference range : <=1.0. The reference r yared was not used to int erpret this result as normal/abnormal . [facility] CentralHmoefzjJCMMDEAWPU1641-18-16 09:50:00 Test Item Value Reference Range Interpretation Comments Neutrophils # (test code = Neutrophils 4.9 1.5-8.1 #) [facility] CentralLcecwntZQQCNJPHSE0583-51-05 09:50:00 Test Item Value Reference Range Interpretation Comments Lymphocytes # (test code = Lymphocytes 1.0 1.0-5.5 #) [facility] CentralQwsknqlIOABUESOEZ6473-37-92 09:50:00 Test Item Value Reference Range Interpretation Comments Monocytes # (test code 0.5 See_Comment [Aut omated message] The = Monocytes #) system which generated this result tra nsmitted reference range : <=0.8. The reference r yared was not used to int erpret this result as normal/abnormal . [facility] CentralXnrwqdlMOZSJOLAPF3194-84-36 09:50:00 Test Item Value Reference Range Interpretation Comments Eosinophils # (test code 0.2 See_Comment [A utomated message] The = Eosinophils #) system whic h generated this result tra nsmitted reference range : <=0.5. The reference r yared was not used to int erpret this result as normal/abnormal . [facility] CentralQuttduiVOMUPQPLQM7655-08-59 09:50:00 Test Item Value Reference Range Interpretation Comments WBC (test code = WBC) 6.7 3.7-10.4 [facility] CentralHqorhkeNNCMDYQJTP0607-89-47 09:50:00 Test Item Value Reference Range Interpretation Comments RBC (test code = RBC) 2.86 4.70-6.10 [facility] CentralNqgdzlwQJIWBSTMGG9307-78-76 09:50:00 Test Item Value Reference Range Interpretation Comments Hgb (test code = Hgb) 8.3 14.0-18.0 [facility] CentralRclgndsWGTBXDGDCQ5113-21-32 09:50:00 Test Item Value Reference Range Interpretation Comments Hct (test code = Hct) 24.4 42.0-54.0 [facility] CentralCfgrqniNIOTZOBEUS3279-76-09 09:50:00 Test Item Value Reference Range Interpretation Comments MCV (test code = MCV) 85.1 80.0-94.0 [facility] CentralRgpfnavYFSNLTUTEL7480-73-81 09:50:00 Test Item Value Reference Range Interpretation Comments MCH (test code = MCH) 29.0 pg 27.0-31.0 [facility] CentralGqgeckvCAFLYXEIRY6262-82-19 09:50:00 Test Item Value Reference Range Interpretation Comments MCHC (test code = MCHC) 34.1 32.0-36.0 [facility] CentralZtwzwltTKAYJUVLZD7488-50-44 09:50:00 Test Item Value Reference Range Interpretation Comments RDW (test code = RDW) 14.1 11.5-14.5 [facility] CentralCygadrxSRSDTDEBHR5556-39-43 09:50:00 Test Item Value Reference Range Interpretation Comments Platelet (test code = Platelet) 209 133-450 [facility] CentralIprcnrdJZEQEFJCTT8820-39-85 09:50:00 Test Item Value Reference Range Interpretation Comments MPV (test code = MPV) 6.6 7.4-10.4 [facility] HospitalTttfzedGLAZLPSRBF9506-33-73 09:50:00 Test Item Value Reference Range Interpretation Comments Vanco Lvl (test code = Vanco Lvl) 13.1 [facility]2020-10-04 00:50:00 Test Item Value Reference Range Interpretation Comments Color BF (test code = Light Yellow (07/11/20 Color BF) 7:50 PM) [facility]2020-10-04 00:50:00 Test Item Value Reference Range Interpretation Comments Clarity BF (test code = Slight Cloudy (07/11/20 Clarity BF) 7:50 PM) [facility]2020-10-04 00:50:00 Test Item Value Reference Range Interpretation Comments Supernat BF (test code Colorless (07/11/20 7:50 = Supernat BF) PM) [facility]2020-10-04 00:50:00 Test Item Value Reference Range Interpretation Comments Nucleated Cells BF (test code = 474 Nucleated Cells BF) [facility]2020-10-04 00:50:00 Test Item Value Reference Range Interpretation Comments RBC BF (test code = RBC BF) 79 [facility]2020-10-04 00:50:00 Test Item Value Reference Range Interpretation Comments Neutrophils BF (test code = Neutrophils 53 BF) [facility]2020-10-04 00:50:00 Test Item Value Reference Range Interpretation Comments Lymph BF (test code = Lymph BF) 10 [facility] KKONID0209-20-02 00:50:00 Test Item Value Reference Range Interpretation Comments Macrophage BF (test code = Macrophage 33 BF) [facility]2020-10-04 00:50:00 Test Item Value Reference Range Interpretation Comments Eos BF (test code = Eos BF) 3 [facility]2020-10-04 00:50:00 Test Item Value Reference Range Interpretation Comments Meso BF (test code = Meso BF) 1 [facility] HESIKY9858-68-04 00:50:00 Test Item Value Reference Range Interpretation Comments CellCnt BF Type (test Periton (07/11/20 7:50 code = CellCnt BF Type) PM) [facility]2020-10-04 00:50:00 Test Item Value Reference Range Interpretation Comments Color BF (test code = Light Yellow (07/11/20 Color BF) 7:50 PM) [facility] [id number] 00:50:00 Test Item Value Reference Range Interpretation Comments Clarity BF (test code = Slight Cloudy (07/11/20 Clarity BF) 7:50 PM) [facility]2020-10-04 00:50:00 Test Item Value Reference Range Interpretation Comments Supernat BF (test code Colorless (07/11/20 7:50 = Supernat BF) PM) [facility]2020-10-04 00:50:00 Test Item Value Reference Range Interpretation Comments Nucleated Cells BF (test code = 474 Nucleated Cells BF) [facility]2020-10-04 00:50:00 Test Item Value Reference Range Interpretation Comments RBC BF (test code = RBC BF) 79 [facility]2020-10-04 00:50:00 Test Item Value Reference Range Interpretation Comments Neutrophils BF (test code = Neutrophils 53 BF) [facility]2020-10-04 00:50:00 Test Item Value Reference Range Interpretation Comments Lymph BF (test code = Lymph BF) 10 [facility]2020-10-04 00:50:00 Test Item Value Reference Range Interpretation Comments Macrophage BF (test code = Macrophage 33 BF) [facility]2020-10-04 00:50:00 Test Item Value Reference Range Interpretation Comments Eos BF (test code = Eos BF) 3 [facility]2020-10-04 00:50:00 Test Item Value Reference Range Interpretation Comments Meso BF (test code = Meso BF) 1 [facility]2020-10-04 00:50:00 Test Item Value Reference Range Interpretation Comments CellCnt BF Type (test Periton (07/11/20 7:50 code = CellCnt BF Type) PM) [facility]2020-10-04 00:50:00 Test Item Value Reference Range Interpretation Comments Color BF (test code = Light Yellow (07/11/20 Color BF) 7:50 PM) [facility]2020-10-04 00:50:00 Test Item Value Reference Range Interpretation Comments Clarity BF (test code = Slight Cloudy (07/11/20 Clarity BF) 7:50 PM) [facility]2020-10-04 00:50:00 Test Item Value Reference Range Interpretation Comments Supernat BF (test code Colorless (07/11/20 7:50 = Supernat BF) PM) [facility]2020-10-04 00:50:00 Test Item Value Reference Range Interpretation Comments Nucleated Cells BF (test code = 474 Nucleated Cells BF) [facility]2020-10-04 00:50:00 Test Item Value Reference Range Interpretation Comments RBC BF (test code = RBC BF) 79 [facility]2020-10-04 00:50:00 Test Item Value Reference Range Interpretation Comments Neutrophils BF (test code = Neutrophils 53 BF) [facility]2020-10-04 00:50:00 Test Item Value Reference Range Interpretation Comments Lymph BF (test code = Lymph BF) 10 [facility]2020-10-04 00:50:00 Test Item Value Reference Range Interpretation Comments Macrophage BF (test code = Macrophage 33 BF) [facility]2020-10-04 00:50:00 Test Item Value Reference Range Interpretation Comments Eos BF (test code = Eos BF) 3 [facility]2020-10-04 00:50:00 Test Item Value Reference Range Interpretation Comments Meso BF (test code = Meso BF) 1 [facility]2020-10-04 00:50:00 Test Item Value Reference Range Interpretation Comments CellCnt BF Type (test Periton (07/11/20 7:50 code = CellCnt BF Type) PM) [facility]BcpnnzfWWJIDLXUGY6299-49-58 08:20:00 Test Item Value Reference Range Interpretation Comments WBC (test code = WBC) 6.2 3.7-10.4 [facility]os[facility]BP[facility]FKXCAX2713-16-71 08:20:00 Test Item Value Reference Range Interpretation Comments RBC (test code = RBC) 2.74 4.70-6.10 [facility] HospitalYtdoytaLXIDQCDEEY3868-19-63 08:20:00 Test Item Value Reference Range Interpretation Comments Hgb (test code = Hgb) 8.0 14.0-18.0 [facility] HospitalTdhtawkUWSHEBZGRU6488-81-29 08:20:00 Test Item Value Reference Range Interpretation Comments Hct (test code = Hct) 23.1 42.0-54.0 [facility] HospitalKrsmxtbDGWZBFDKHJ7484-46-08 08:20:00 Test Item Value Reference Range Interpretation Comments MCV (test code = MCV) 84.4 80.0-94.0 [facility] HospitalXpynycsMFNKNHKUJT9877-34-08 08:20:00 Test Item Value Reference Range Interpretation Comments MCH (test code = MCH) 29.2 pg 27.0-31.0 [place] [address]-10-03 08:20:00 Test Item Value Reference Range Interpretation Comments MCHC (test code = MCHC) 34.7 32.0-36.0 [place] [address]-10-03 08:20:00 Test Item Value Reference Range Interpretation Comments RDW (test code = RDW) 13.9 11.5-14.5 [place] [address]-10-03 08:20:00 Test Item Value Reference Range Interpretation Comments Platelet (test code = Platelet) 199 133-450 [place] 799140-10-03 08:20:00 Test Item Value Reference Range Interpretation Comments MPV (test code = MPV) 6.8 7.4-10.4 [place] [address]-10-03 08:20:00 Test Item Value Reference Range Interpretation Comments Segs (test code = Segs) 74.0 45.0-75.0 [place] [address]-10-03 08:20:00 Test Item Value Reference Range Interpretation Comments Lymphocytes (test code = Lymphocytes) 13.2 20.0-40.0 [place] [address]-10-03 08:20:00 Test Item Value Reference Range Interpretation Comments Monocytes (test code = Monocytes) 9.1 2.0-12.0 [place] [address]-10-03 08:20:00 Test Item Value Reference Range Interpretation Comments Eosinophils (test code = 3.2 See_Comment [A utomated message] The Eosinophils) system which ge nerated this result tra nsmitted reference range : <=4.0. The reference r yared was not used to int erpret this result as normal/abnormal . [place] [address]-10-03 08:20:00 Test Item Value Reference Range Interpretation Comments Basophils (test code = 0.5 See_Comment [Aut omated message] The Basophils) system which ge nerated this result tra nsmitted reference range : <=1.0. The reference r yared was not used to int erpret this result as normal/abnormal . [place] [address]-10-03 08:20:00 Test Item Value Reference Range Interpretation Comments Neutrophils # (test code = Neutrophils 4.6 1.5-8.1 #) [place] [address]-10-03 08:20:00 Test Item Value Reference Range Interpretation Comments Lymphocytes # (test code = Lymphocytes 0.8 1.0-5.5 #) [facility]BpqjswnBZXSNKKXQN8940-31-18 08:20:00 Test Item Value Reference Range Interpretation Comments Monocytes # (test code 0.6 See_Comment [Aut omated message] The = Monocytes #) system which generated this result tra nsmitted reference range : <=0.8. The reference r yared was not used to int erpret this result as normal/abnormal . [facility] CentralWkubgjxMQCHPEPVTA9936-82-83 08:20:00 Test Item Value Reference Range Interpretation Comments Eosinophils # (test code 0.2 See_Comment [A utomated message] The = Eosinophils #) system whic h generated this result tra nsmitted reference range : <=0.5. The reference r yared was not used to int erpret this result as normal/abnormal . [facility] CentralExbhhfeCGCOAKHTSN2617-91-37 08:20:00 Test Item Value Reference Range Interpretation Comments WBC (test code = WBC) 6.2 3.7-10.4 [facility] CentralQtinulbSVKNZVFLFX5905-83-92 08:20:00 Test Item Value Reference Range Interpretation Comments RBC (test code = RBC) 2.74 4.70-6.10 [facility] CentralLwgffowDBXXYESUGU0352-02-68 08:20:00 Test Item Value Reference Range Interpretation Comments Hgb (test code = Hgb) 8.0 14.0-18.0 [facility] CentralYbsfkrcPETNOFGMGM2260-72-35 08:20:00 Test Item Value Reference Range Interpretation Comments Hct (test code = Hct) 23.1 42.0-54.0 [facility] CentralUrwurcpWGMTZEQTYI1825-87-47 08:20:00 Test Item Value Reference Range Interpretation Comments MCV (test code = MCV) 84.4 80.0-94.0 [facility] CentralXatpppcLVNEMVAGQR5612-76-90 08:20:00 Test Item Value Reference Range Interpretation Comments MCH (test code = MCH) 29.2 pg 27.0-31.0 [facility] CentralMldkxcgZLJXQIUBXC4626-90-12 08:20:00 Test Item Value Reference Range Interpretation Comments MCHC (test code = MCHC) 34.7 32.0-36.0 [facility] CentralIsihdlgLFQGUFZYSK2888-09-09 08:20:00 Test Item Value Reference Range Interpretation Comments RDW (test code = RDW) 13.9 11.5-14.5 [place] 799140-10-03 08:20:00 Test Item Value Reference Range Interpretation Comments Platelet (test code = Platelet) 199 133-450 [place] 799140-10-03 08:20:00 Test Item Value Reference Range Interpretation Comments MPV (test code = MPV) 6.8 7.4-10.4 [place] [address]-10-03 08:20:00 Test Item Value Reference Range Interpretation Comments Segs (test code = Segs) 74.0 45.0-75.0 [place] [address]-10-03 08:20:00 Test Item Value Reference Range Interpretation Comments Lymphocytes (test code = Lymphocytes) 13.2 20.0-40.0 [place] [address]-10-03 08:20:00 Test Item Value Reference Range Interpretation Comments Monocytes (test code = Monocytes) 9.1 2.0-12.0 [place] [address]-10-03 08:20:00 Test Item Value Reference Range Interpretation Comments Eosinophils (test code = 3.2 See_Comment [A utomated message] The Eosinophils) system which ge nerated this result tra nsmitted reference range : <=4.0. The reference r yared was not used to int erpret this result as normal/abnormal . [place] [address]-10-03 08:20:00 Test Item Value Reference Range Interpretation Comments Basophils (test code = 0.5 See_Comment [Aut omated message] The Basophils) system which ge nerated this result tra nsmitted reference range : <=1.0. The reference r yared was not used to int erpret this result as normal/abnormal . [facility] CentralGoqvuwgFUBBNJQDGK2722-96-17 08:20:00 Test Item Value Reference Range Interpretation Comments Neutrophils # (test code = Neutrophils 4.6 1.5-8.1 #) [place] [address]-10-03 08:20:00 Test Item Value Reference Range Interpretation Comments Lymphocytes # (test code = Lymphocytes 0.8 1.0-5.5 #) [place] [address]-10-03 08:20:00 Test Item Value Reference Range Interpretation Comments Monocytes # (test code 0.6 See_Comment [Aut omated message] The = Monocytes #) system which generated this result tra nsmitted reference range : <=0.8. The reference r yared was not used to int erpret this result as normal/abnormal . [facility]OsghuncRYUCTFEDQI9493-23-23 08:20:00 Test Item Value Reference Range Interpretation Comments Eosinophils # (test code 0.2 See_Comment [A utomated message] The = Eosinophils #) system whic h generated this result tra nsmitted reference range : <=0.5. The reference r yared was not used to int erpret this result as normal/abnormal . [facility] CentralGjohrmkBBXIVMOVBU7504-04-77 08:20:00 Test Item Value Reference Range Interpretation Comments WBC (test code = WBC) 6.2 3.7-10.4 [facility] CentralPurwikjTQMBCRHSKS5337-61-81 08:20:00 Test Item Value Reference Range Interpretation Comments RBC (test code = RBC) 2.74 4.70-6.10 [facility] CentralRlpubqjJQNRHFCQHA0007-63-48 08:20:00 Test Item Value Reference Range Interpretation Comments Hgb (test code = Hgb) 8.0 14.0-18.0 [facility] CentralMbbkmlvNUUKTBHANJ2933-62-16 08:20:00 Test Item Value Reference Range Interpretation Comments Hct (test code = Hct) 23.1 42.0-54.0 [facility] CentralCzfvitvHNAFIQBUDL5083-19-39 08:20:00 Test Item Value Reference Range Interpretation Comments MCV (test code = MCV) 84.4 80.0-94.0 [facility] CentralNzcrffaCEKYHCPBKD7925-80-11 08:20:00 Test Item Value Reference Range Interpretation Comments MCH (test code = MCH) 29.2 pg 27.0-31.0 [facility] CentralUoscuiiLWXUVRWHRT3103-66-25 08:20:00 Test Item Value Reference Range Interpretation Comments MCHC (test code = MCHC) 34.7 32.0-36.0 [facility] CentralBywdylnZDTITFEHHK3202-16-02 08:20:00 Test Item Value Reference Range Interpretation Comments RDW (test code = RDW) 13.9 11.5-14.5 [facility] CentralUexeaasVHVOOFBPPP5882-70-43 08:20:00 Test Item Value Reference Range Interpretation Comments Platelet (test code = Platelet) 199 133-450 [facility] CentralPqtpvrzAFTXHBCHQL0453-99-92 08:20:00 Test Item Value Reference Range Interpretation Comments MPV (test code = MPV) 6.8 7.4-10.4 [facility] CentralLiooeluZHGZDCTSZW3983-97-06 08:20:00 Test Item Value Reference Range Interpretation Comments Segs (test code = Segs) 74.0 45.0-75.0 [facility] CentralIwcqdfwRVLMXCBHDJ4530-64-39 08:20:00 Test Item Value Reference Range Interpretation Comments Lymphocytes (test code = Lymphocytes) 13.2 20.0-40.0 [facility] CentralIytzvseSDSSEJVDPJ3626-64-07 08:20:00 Test Item Value Reference Range Interpretation Comments Monocytes (test code = Monocytes) 9.1 2.0-12.0 [facility] CentralRwwplnlYAYIXGNDAG1667-21-62 08:20:00 Test Item Value Reference Range Interpretation Comments Eosinophils (test code = 3.2 See_Comment [A utomated message] The Eosinophils) system which ge nerated this result tra nsmitted reference range : <=4.0. The reference r yared was not used to int erpret this result as normal/abnormal . [facility] CentralFtbuxcwWUJTWSAAYA2848-05-56 08:20:00 Test Item Value Reference Range Interpretation Comments Basophils (test code = 0.5 See_Comment [Aut omated message] The Basophils) system which ge nerated this result tra nsmitted reference range : <=1.0. The reference r yared was not used to int erpret this result as normal/abnormal . [facility] CentralZxcickmODAMHMAWST5343-36-66 08:20:00 Test Item Value Reference Range Interpretation Comments Neutrophils # (test code = Neutrophils 4.6 1.5-8.1 #) [facility] CentralRvwqcstVGROHNVUMR1644-32-69 08:20:00 Test Item Value Reference Range Interpretation Comments Lymphocytes # (test code = Lymphocytes 0.8 1.0-5.5 #) [place] [address]140-10-03 08:20:00 Test Item Value Reference Range Interpretation Comments Monocytes # (test code 0.6 See_Comment [Aut omated message] The = Monocytes #) system which generated this result tra nsmitted reference range : <=0.8. The reference r yared was not used to int erpret this result as normal/abnormal . [place] [address]99140-10-03 08:20:00 Test Item Value Reference Range Interpretation Comments Eosinophils # (test code 0.2 See_Comment [A utomated message] The = Eosinophils #) system [employer] h generated this result tra nsmitted reference range : <=0.5. The reference r yared was not used to int erpret this result as normal/abnormal . [facility] CentralDapjufhXTFLVYWWNI2288-22-25 14:52:00 Test Item Value Reference Range Interpretation Comments WBC (test code = WBC) 6.6 3.7-10.4 [facility] CentralCinjhloUGACKMQBJX9443-98-88 14:52:00 Test Item Value Reference Range Interpretation Comments RBC (test code = RBC) 2.76 4.70-6.10 [facility] CentralBngopgaQMGCKYLNBC1159-21-76 14:52:00 Test Item Value Reference Range Interpretation Comments Hgb (test code = Hgb) 8.1 14.0-18.0 [place] [address]99140-10-02 14:52:00 Test Item Value Reference Range Interpretation Comments Hct (test code = Hct) 23.3 42.0-54.0 [facility] CentralJmphcrlJZACWLVAFE8925-10-16 14:52:00 Test Item Value Reference Range Interpretation Comments MCV (test code = MCV) 84.2 80.0-94.0 [facility] CentralEkzdxnaRRNWGVDUMC6957-54-07 14:52:00 Test Item Value Reference Range Interpretation Comments MCH (test code = MCH) 29.3 pg 27.0-31.0 [facility] CentralKsfwmfnYCOQZMEWBX5577-37-54 14:52:00 Test Item Value Reference Range Interpretation Comments MCHC (test code = MCHC) 34.8 32.0-36.0 [facility] CentralQlbwuzuGRBAWOXNAG4876-71-45 14:52:00 Test Item Value Reference Range Interpretation Comments RDW (test code = RDW) 13.7 11.5-14.5 [place] 799140-10-02 14:52:00 Test Item Value Reference Range Interpretation Comments Platelet (test code = Platelet) 203 133-450 [facility] CentralZaflzkuYIPSYBHVFH8692-00-14 14:52:00 Test Item Value Reference Range Interpretation Comments MPV (test code = MPV) 6.6 7.4-10.4 [facility] CentralDiwwnkxPSEEGKJHSL8554-25-57 14:52:00 Test Item Value Reference Range Interpretation Comments RBC Morph (test code = Normal (07/10/20 9:52 RBC Morph) AM) [facility] CentralYomfgywYSVYDACJZK3700-37-30 14:52:00 Test Item Value Reference Range Interpretation Comments Plt Morph (test code = Normal (07/10/20 9:52 Plt Morph) AM) [facility] CentralEzujpxlNXZRSYMQGE9517-60-55 14:52:00 Test Item Value Reference Range Interpretation Comments Segs (test code = Segs) 76.0 45.0-75.0 [place] 799140-10-02 14:52:00 Test Item Value Reference Range Interpretation Comments Lymphocytes (test code = Lymphocytes) 11.5 20.0-40.0 [place] [address]-10-02 14:52:00 Test Item Value Reference Range Interpretation Comments Monocytes (test code = Monocytes) 8.9 2.0-12.0 [place] [address]-10-02 14:52:00 Test Item Value Reference Range Interpretation Comments Eosinophils (test code = 3.1 See_Comment [A utomated message] The Eosinophils) system which ge nerated this result tra nsmitted reference range : <=4.0. The reference r yared was not used to int erpret this result as normal/abnormal . [facility] CentralAdgyjytWKOXAWLXLV3440-94-24 14:52:00 Test Item Value Reference Range Interpretation Comments Basophils (test code = 0.5 See_Comment [Aut omated message] The Basophils) system which ge nerated this result tra nsmitted reference range : <=1.0. The reference r yared was not used to int erpret this result as normal/abnormal . [facility] CentralAbfhmmmBGQCZYFAUZ7274-02-41 14:52:00 Test Item Value Reference Range Interpretation Comments Neutrophils # (test code = Neutrophils 5.1 1.5-8.1 #) [facility] CentralUgcaosnYCBINGLVVG2163-01-56 14:52:00 Test Item Value Reference Range Interpretation Comments Lymphocytes # (test code = Lymphocytes 0.8 1.0-5.5 #) [place] [address]99140-10-02 14:52:00 Test Item Value Reference Range Interpretation Comments Monocytes # (test code 0.6 See_Comment [Aut omated message] The = Monocytes #) system which generated this result tra nsmitted reference range : <=0.8. The reference r yared was not used to int erpret this result as normal/abnormal . [facility] CentralWvmtgiaAJNKLZYKVD0485-09-32 14:52:00 Test Item Value Reference Range Interpretation Comments Eosinophils # (test code 0.2 See_Comment [A utomated message] The = Eosinophils #) system whic h generated this result tra nsmitted reference range : <=0.5. The reference r yared was not used to int erpret this result as normal/abnormal . [facility] CentralOfshttaIBPCUDIMXF5482-10-12 14:52:00 Test Item Value Reference Range Interpretation Comments WBC (test code = WBC) 6.6 3.7-10.4 [facility] CentralDdxkhlrEPEPKLZLTN5073-80-08 14:52:00 Test Item Value Reference Range Interpretation Comments RBC (test code = RBC) 2.76 4.70-6.10 [facility] CentralNuqmegdNMYTAULKVZ7914-18-07 14:52:00 Test Item Value Reference Range Interpretation Comments Hgb (test code = Hgb) 8.1 14.0-18.0 [facility] CentralFbqfrueMCTHMHFPYZ9786-08-64 14:52:00 Test Item Value Reference Range Interpretation Comments Hct (test code = Hct) 23.3 42.0-54.0 [facility] CentralKjwbzpqRJBMTPGHPU5674-73-49 14:52:00 Test Item Value Reference Range Interpretation Comments MCV (test code = MCV) 84.2 80.0-94.0 [facility] CentralJgsilesGVPPTQXNAF8656-93-61 14:52:00 Test Item Value Reference Range Interpretation Comments MCH (test code = MCH) 29.3 pg 27.0-31.0 [facility] CentralSlqjomiKETPDUBDKI2471-09-08 14:52:00 Test Item Value Reference Range Interpretation Comments MCHC (test code = MCHC) 34.8 32.0-36.0 [place] [address]99140-10-02 14:52:00 Test Item Value Reference Range Interpretation Comments RDW (test code = RDW) 13.7 11.5-14.5 [facility] CentralXpojdwlGZSVNGFDSL8345-22-58 14:52:00 Test Item Value Reference Range Interpretation Comments Platelet (test code = Platelet) 203 133-450 [facility] CentralLtswqdnXUESADWOKB3459-59-86 14:52:00 Test Item Value Reference Range Interpretation Comments MPV (test code = MPV) 6.6 7.4-10.4 [facility] CentralZwhxbtfQRWSBTTSFR5449-24-22 14:52:00 Test Item Value Reference Range Interpretation Comments RBC Morph (test code = Normal (07/10/20 9:52 RBC Morph) AM) [place] 799140-10-02 14:52:00 Test Item Value Reference Range Interpretation Comments Plt Morph (test code = Normal (07/10/20 9:52 Plt Morph) AM) [place] [address]-10-02 14:52:00 Test Item Value Reference Range Interpretation Comments Segs (test code = Segs) 76.0 45.0-75.0 [place] [address]-10-02 14:52:00 Test Item Value Reference Range Interpretation Comments Lymphocytes (test code = Lymphocytes) 11.5 20.0-40.0 [place] [address]-10-02 14:52:00 Test Item Value Reference Range Interpretation Comments Monocytes (test code = Monocytes) 8.9 2.0-12.0 [place] [address]-10-02 14:52:00 Test Item Value Reference Range Interpretation Comments Eosinophils (test code = 3.1 See_Comment [A utomated message] The Eosinophils) system which ge nerated this result tra nsmitted reference range : <=4.0. The reference r yared was not used to int erpret this result as normal/abnormal . [place] [address]-10-02 14:52:00 Test Item Value Reference Range Interpretation Comments Basophils (test code = 0.5 See_Comment [Aut omated message] The Basophils) system which ge nerated this result tra nsmitted reference range : <=1.0. The reference r yared was not used to int erpret this result as normal/abnormal . [facility] CentralQhmcmeuLJIXFWQIME1029-13-06 14:52:00 Test Item Value Reference Range Interpretation Comments Neutrophils # (test code = Neutrophils 5.1 1.5-8.1 #) [place] [address]99140-10-02 14:52:00 Test Item Value Reference Range Interpretation Comments Lymphocytes # (test code = Lymphocytes 0.8 1.0-5.5 #) [place] 799140-10-02 14:52:00 Test Item Value Reference Range Interpretation Comments Monocytes # (test code 0.6 See_Comment [Aut omated message] The = Monocytes #) system which generated this result tra nsmitted reference range : <=0.8. The reference r yared was not used to int erpret this result as normal/abnormal . [facility] CentralRywakijAECBHMNUDU4362-17-15 14:52:00 Test Item Value Reference Range Interpretation Comments Eosinophils # (test code 0.2 See_Comment [A utomated message] The = Eosinophils #) system whic h generated this result tra nsmitted reference range : <=0.5. The reference r yared was not used to int erpret this result as normal/abnormal . [facility] CentralRqxylssMCUBMCPFGA5657-99-70 14:52:00 Test Item Value Reference Range Interpretation Comments WBC (test code = WBC) 6.6 3.7-10.4 [facility] CentralGisyrgmGSXDZSBTEW6067-90-73 14:52:00 Test Item Value Reference Range Interpretation Comments RBC (test code = RBC) 2.76 4.70-6.10 [facility] CentralOyikkhvKQECUYREZQ7377-32-39 14:52:00 Test Item Value Reference Range Interpretation Comments Hgb (test code = Hgb) 8.1 14.0-18.0 [facility] CentralNqretotOOFHRVBEIA6190-91-20 14:52:00 Test Item Value Reference Range Interpretation Comments Hct (test code = Hct) 23.3 42.0-54.0 [facility] CentralItgwuajAXTUMZRYGI3262-32-20 14:52:00 Test Item Value Reference Range Interpretation Comments MCV (test code = MCV) 84.2 80.0-94.0 [facility] CentralVpfhasoFJNDWSJHVV1653-44-90 14:52:00 Test Item Value Reference Range Interpretation Comments MCH (test code = MCH) 29.3 pg 27.0-31.0 [facility] CentralKbzaeflCDJDPDYIAM6580-94-39 14:52:00 Test Item Value Reference Range Interpretation Comments MCHC (test code = MCHC) 34.8 32.0-36.0 [facility] CentralCtfxvrxUZAODJQIXM6672-27-02 14:52:00 Test Item Value Reference Range Interpretation Comments RDW (test code = RDW) 13.7 11.5-14.5 [facility] CentralXrnsykoSGXXSMINCL0133-65-97 14:52:00 Test Item Value Reference Range Interpretation Comments Platelet (test code = Platelet) 203 133-450 [facility] CentralGpnvoszZTUVIPMZFB0255-38-01 14:52:00 Test Item Value Reference Range Interpretation Comments MPV (test code = MPV) 6.6 7.4-10.4 [place] 799140-10-02 14:52:00 Test Item Value Reference Range Interpretation Comments RBC Morph (test code = Normal (07/10/20 9:52 RBC Morph) AM) [place] 799140-10-02 14:52:00 Test Item Value Reference Range Interpretation Comments Plt Morph (test code = Normal (07/10/20 9:52 Plt Morph) AM) [facility] CentralVoxzyslIVLTLUXSNS9527-86-65 14:52:00 Test Item Value Reference Range Interpretation Comments Segs (test code = Segs) 76.0 45.0-75.0 [place] 799140-10-02 14:52:00 Test Item Value Reference Range Interpretation Comments Lymphocytes (test code = Lymphocytes) 11.5 20.0-40.0 [place] [address]-10-02 14:52:00 Test Item Value Reference Range Interpretation Comments Monocytes (test code = Monocytes) 8.9 2.0-12.0 [place] [address]-10-02 14:52:00 Test Item Value Reference Range Interpretation Comments Eosinophils (test code = 3.1 See_Comment [A utomated message] The Eosinophils) system which ge nerated this result tra nsmitted reference range : <=4.0. The reference r yared was not used to int erpret this result as normal/abnormal . [facility] CentralPuxhurkASTMTHYMYN6694-87-93 14:52:00 Test Item Value Reference Range Interpretation Comments Basophils (test code = 0.5 See_Comment [Aut omated message] The Basophils) system which ge nerated this result tra nsmitted reference range : <=1.0. The reference r yared was not used to int erpret this result as normal/abnormal . [facility] CentralSvtdxykZOLRSWCQCG2615-16-63 14:52:00 Test Item Value Reference Range Interpretation Comments Neutrophils # (test code = Neutrophils 5.1 1.5-8.1 #) [facility] CentralIpavmmlXOOQGVJVWB5298-88-36 14:52:00 Test Item Value Reference Range Interpretation Comments Lymphocytes # (test code = Lymphocytes 0.8 1.0-5.5 #) [place] [address]99140-10-02 14:52:00 Test Item Value Reference Range Interpretation Comments Monocytes # (test code 0.6 See_Comment [Aut omated message] The = Monocytes #) system which generated this result tra nsmitted reference range : <=0.8. The reference r yared was not used to int erpret this result as normal/abnormal . [facility] CentralTrdxjqvNHBPQKELIH0242-55-30 14:52:00 Test Item Value Reference Range Interpretation Comments Eosinophils # (test code 0.2 See_Comment [A utomated message] The = Eosinophils #) system whic h generated this result tra nsmitted reference range : <=0.5. The reference r yared was not used to int erpret this result as normal/abnormal . [facility]2020-10-01 14:49:00 Test Item Value Reference Range Interpretation Comments Total Protein (test code = Total 5.2 6.4-8.4 Protein) [place] [address]-10-01 14:49:00 Test Item Value Reference Range Interpretation Comments Albumin Lvl (test code = Albumin Lvl) 1.5 3.5-5.0 [place] 065730-10-01 14:49:00 Test Item Value Reference Range Interpretation Comments ALT (test code = ALT) 13 See_Comment [Auto mated message] The system which ge nerated this result transmit emerson reference range : <=65. The reference range was not used to interpr et this result as erinn l/abnormal. [facility]2020-10-01 14:49:00 Test Item Value Reference Range Interpretation Comments AST (test code = AST) 11 See_Comment [Auto mated message] The system which ge nerated this result transmit emerson reference range : <=37. The reference range was not used to interpr et this result as erinn l/abnormal. [place] 065730-10-01 14:49:00 Test Item Value Reference Range Interpretation Comments Alk Phos (test code = Alk Phos) 75 39-136 [place] [address]-10-01 14:49:00 Test Item Value Reference Range Interpretation Comments Bili Total (test code = Bili Total) 0.4 0.2-1.3 [place] [address]-10-01 14:49:00 Test Item Value Reference Range Interpretation Comments B/C Ratio (test code = B/C Ratio) 4 1 6-25 [facility] [id number] 14:49:00 Test Item Value Reference Range Interpretation Comments Globulin (test code = Globulin) 3.7 2.7-4.2 [place] 065730-10-01 14:49:00 Test Item Value Reference Range Interpretation Comments A/G Ratio (test code = A/G Ratio) 0.4 1 0.7-1.6 [place] 065730-10-01 14:49:00 Test Item Value Reference Range Interpretation Comments Phosphorus (test code = Phosphorus) 4.1 2.5-4.5 [facility] LaboratoryEMILY [facility] [id number] 14:49:00 Test Item Value Reference Range Interpretation Comments Total Protein (test code = Total 5.2 6.4-8.4 Protein) [facility]2020-10-01 14:49:00 Test Item Value Reference Range Interpretation Comments Albumin Lvl (test code = Albumin Lvl) 1.5 3.5-5.0 [facility] [id number] 14:49:00 Test Item Value Reference Range Interpretation Comments ALT (test code = ALT) 13 See_Comment [Auto mated message] The system which ge nerated this result transmit emerson reference range : <=65. The reference range was not used to interpr et this result as erinn l/abnormal. [facility] [id number] 14:49:00 Test Item Value Reference Range Interpretation Comments AST (test code = AST) 11 See_Comment [Auto mated message] The system which ge nerated this result transmit emerson reference range : <=37. The reference range was not used to interpr et this result as erinn l/abnormal. [facility] [id number] 14:49:00 Test Item Value Reference Range Interpretation Comments Alk Phos (test code = Alk Phos) 75 39-136 [facility] [id number] 14:49:00 Test Item Value Reference Range Interpretation Comments Bili Total (test code = Bili Total) 0.4 0.2-1.3 [facility] [id number] 14:49:00 Test Item Value Reference Range Interpretation Comments B/C Ratio (test code = B/C Ratio) 4 1 04-02 [facility] [id number] 14:49:00 Test Item Value Reference Range Interpretation Comments Globulin (test code = Globulin) 3.7 2.7-4.2 [place] 065730-10-01 14:49:00 Test Item Value Reference Range Interpretation Comments A/G Ratio (test code = A/G Ratio) 0.4 1 0.7-1.6 [facility]2020-10-01 14:49:00 Test Item Value Reference Range Interpretation Comments Phosphorus (test code = Phosphorus) 4.1 2.5-4.5 [facility] [id number] 14:49:00 Test Item Value Reference Range Interpretation Comments Total Protein (test code = Total 5.2 6.4-8.4 Protein) [place] 065730-10-01 14:49:00 Test Item Value Reference Range Interpretation Comments Albumin Lvl (test code = Albumin Lvl) 1.5 3.5-5.0 [facility]2020-10-01 14:49:00 Test Item Value Reference Range Interpretation Comments ALT (test code = ALT) 13 See_Comment [Auto mated message] The system which ge nerated this result transmit emerson reference range : <=65. The reference range was not used to interpr et this result as erinn l/abnormal. [facility] [id number] 14:49:00 Test Item Value Reference Range Interpretation Comments AST (test code = AST) 11 See_Comment [Auto mated message] The system which ge nerated this result transmit emerson reference range : <=37. The reference range was not used to interpr et this result as erinn l/abnormal. [facility] [id number] 14:49:00 Test Item Value Reference Range Interpretation Comments Alk Phos (test code = Alk Phos) 75 39-136 [facility] [id number] 14:49:00 Test Item Value Reference Range Interpretation Comments Bili Total (test code = Bili Total) 0.4 0.2-1.3 [facility] [id number] 14:49:00 Test Item Value Reference Range Interpretation Comments B/C Ratio (test code = B/C Ratio) 4 1 6-25 [facility] [id number] 14:49:00 Test Item Value Reference Range Interpretation Comments Globulin (test code = Globulin) 3.7 2.7-4.2 [facility] [id number] 14:49:00 Test Item Value Reference Range Interpretation Comments A/G Ratio (test code = A/G Ratio) 0.4 1 0.7-1.6 [facility] [id number] 14:49:00 Test Item Value Reference Range Interpretation Comments Phosphorus (test code = Phosphorus) 4.1 2.5-4.5 [facility] Hospit[id number] 09:57:00 Test Item Value Reference Range Interpretation Comments Vanco Lvl (test code = Vanco Lvl) 15.9 [facility] HospitalEgptjdpUDLFBJXHZU7817-15-49 09:57:00 Test Item Value Reference Range Interpretation Comments Vanco Lvl (test code = Vanco Lvl) 15.9 [facility] [id number] 09:57:00 Test Item Value Reference Range Interpretation Comments Vanco Lvl (test code = Vanco Lvl) 15.9 [facility] [id number] 18:59:00 Test Item Value Reference Range Interpretation Comments Vanco Lvl (test code = Vanco Lvl) 15.4 [facility] [id number] 18:59:00 Test Item Value Reference Range Interpretation Comments Vanco Lvl (test code = Vanco Lvl) 15.4 [facility] Hospit[id number] 18:59:00 Test Item Value Reference Range Interpretation Comments Vanco Lvl (test code = Vanco Lvl) 15.4 [facility]annGram Stain [id number] 15:00:00 Test Item Value Reference Range Interpretation Comments Gram Stain Report No Organisms Seen Few (test code = Gram WBC's Stain Report) [facility]annCulture: Aspirate/Body Fluid/[id number] 15:00:00 Test Item Value Reference Range Interpretation Comments Culture: Aspirate/Body Fluid/Tissue No Growth (test code = Culture: Aspirate/Body Fluid/Tissue) [facility]annGram Stain [id number] 15:00:00 Test Item Value Reference Range Interpretation Comments Gram Stain Report No Organisms Seen Few (test code = Gram WBC's Stain Report) [facility]: Aspirate/Body Fluid/[id number] 15:00:00 Test Item Value Reference Range Interpretation Comments Culture: Aspirate/Body Fluid/Tissue No Growth (test code = Culture: Aspirate/Body Fluid/Tissue) [facility] [id number] 15:00:00 Test Item Value Reference Range Interpretation Comments Gram Stain Report No Organisms Seen Few (test code = Gram WBC's Stain Report) [facility] Aspirate/Body Fluid/[id number] 15:00:00 Test Item Value Reference Range Interpretation Comments Culture: Aspirate/Body Fluid/Tissue No Growth (test code = Culture: Aspirate/Body Fluid/Tissue) [facility] [id number] 15:00:00 Test Item Value Reference Range Interpretation Comments Gram Stain Report Many WBC's No Organisms (test code = Gram Seen Stain Report) [facility] Aspirate/Body Fluid/[id number] 15:00:00 Test Item Value Reference Range Interpretation Comments Culture: Aspirate/Body Fluid/Tissue No Growth (test code = Culture: Aspirate/Body Fluid/Tissue) [facility] [id number] 15:00:00 Test Item Value Reference Range Interpretation Comments Gram Stain Report Many WBC's No Organisms (test code = Gram Seen Stain Report) [facility]: Aspirate/Body Fluid/[id number] 15:00:00 Test Item Value Reference Range Interpretation Comments Culture: Aspirate/Body Fluid/Tissue No Growth (test code = Culture: Aspirate/Body Fluid/Tissue) [facility] [id number] 15:00:00 Test Item Value Reference Range Interpretation Comments Gram Stain Report Many WBC's No Organisms (test code = Gram Seen Stain Report) [facility] Aspirate/Body Fluid/[id number] 15:00:00 Test Item Value Reference Range Interpretation Comments Culture: Aspirate/Body Fluid/Tissue No Growth (test code = Culture: Aspirate/Body Fluid/Tissue) [facility] [id number] 13:30:00 Test Item Value Reference Range Interpretation Comments Gram Stain Report No Organisms Seen Many (test code = Gram WBC's Stain Report) [facility] Aspirate/Body Fluid/[id number] 13:30:00 Test Item Value Reference Range Interpretation Comments Culture: Aspirate/Body Fluid/Tissue No Growth (test code = Culture: Aspirate/Body Fluid/Tissue) [facility] [id number] 13:30:00 Test Item Value Reference Range Interpretation Comments Gram Stain Report No Organisms Seen Many (test code = Gram WBC's Stain Report) [facility]: Aspirate/Body Fluid/[id number] 13:30:00 Test Item Value Reference Range Interpretation Comments Culture: Aspirate/Body Fluid/Tissue No Growth (test code = Culture: Aspirate/Body Fluid/Tissue) [facility]annG[facility] Stain [id number] 13:30:00 Test Item Value Reference Range Interpretation Comments Gram Stain Report No Organisms Seen Many (test code = Gram WBC's Stain Report) [facility]: Aspirate/Body Fluid/[id number] 13:30:00 Test Item Value Reference Range Interpretation Comments Culture: Aspirate/Body Fluid/Tissue No Growth (test code = Culture: Aspirate/Body Fluid/Tissue) [facility] [employer] [id number] 11:40:00 Test Item Value Reference Range Interpretation Comments ABO/Rh (test code = ABO/Rh) O POS [facility] [employer] [id number] 11:40:00 Test Item Value Reference Range Interpretation Comments Antibody Scrn (test Negative (07/06/20 6:40 code = Antibody Scrn) AM) [facility] [employer] [id number] 11:40:00 Test Item Value Reference Range Interpretation Comments ABO/Rh (test code = ABO/Rh) O POS [facility] [employer] [id number] 11:40:00 Test Item Value Reference Range Interpretation Comments Antibody Scrn (test Negative (07/06/20 6:40 code = Antibody Scrn) AM) [facility] [employer] [id number] 11:40:00 Test Item Value Reference Range Interpretation Comments ABO/Rh (test code = ABO/Rh) O POS [facility] [employer] [id number] 11:40:00 Test Item Value Reference Range Interpretation Comments Antibody Scrn (test Negative (07/06/20 6:40 code = Antibody Scrn) AM) [facility] LaboratoryCARDIAC [id number] 11:07:00 Test Item Value Reference Range Interpretation Comments Troponin-I (test code no gt See_Comment [Auto mated message] The = Troponin-I) system which g enerated this result transmit emerson reference range : <=0.40. The reference r yared was not used to interpr et this result as erinn l/abnormal. [facility] [employer] [id number] 11:07:00 Test Item Value Reference Range Interpretation Comments Magnesium Lvl (test code = Magnesium 1.8 1.8-2.4 Lvl) [facility] [employer] [id number] 11:07:00 Test Item Value Reference Range Interpretation Comments Phosphorus (test code = Phosphorus) 5.3 2.5-4.[address] [facility] [employer] [id number] 11:07:00 Test Item Value Reference Range Interpretation Comments Lipase Lvl (test code = Lipase Lvl) 48 73-[address] [facility] [employer] [id number] 11:07:00 Test Item Value Reference Range Interpretation Comments Total Protein (test code = Total 5.3 6.4-8.4 Protein) [facility] [employer] [id number] 11:07:00 Test Item Value Reference Range Interpretation Comments Albumin Lvl (test code = Albumin Lvl) 1.6 3.5-5.[address] [facility] [employer] [id number] 11:07:00 Test Item Value Reference Range Interpretation Comments Globulin (test code = Globulin) 3.7 2.7-4.[address] [facility] [employer] [id number] 11:07:00 Test Item Value Reference Range Interpretation Comments A/G Ratio (test code = A/G Ratio) 0.4 1 0.7-1.[address] [facility] [employer] [id number] 11:07:00 Test Item Value Reference Range Interpretation Comments ALT (test code = ALT) 12 See_Comment [Auto mated message] The system which ge nerated this result transmit emerson reference range : <=65. The reference range was not used to interpr et this result as erinn l/abnormal. [facility] [employer] [id number] 11:07:00 Test Item Value Reference Range Interpretation Comments AST (test code = AST) 13 See_Comment [Auto mated message] The system which ge nerated this result transmit emerson reference range : <=37. The reference range was not used to interpr et this result as erinn l/abnormal. [facility] [id number] 11:07:00 Test Item Value Reference Range Interpretation Comments Alk Phos (test code = Alk Phos) 67 39-136 [facility] [id number] 11:07:00 Test Item Value Reference Range Interpretation Comments Bili Total (test code = Bili Total) 0.6 0.2-1.3 [facility] [id number] 11:07:00 Test Item Value Reference Range Interpretation Comments Bili Direct (test code no gt See_Comment [Aut omated message] The = Bili Direct) system which generated this result tra nsmitted reference range : <=0.3. The reference r yared was not used to int erpret this result as erinn l/abnormal. [facility] [id number] 11:07:00 Test Item Value Reference Range Interpretation Comments Bili Indirect Unable to See_Comment [Automated (test code = Bili Calculate message] T he system Indirect) which generated this result transmitted reference range : <=1.0. The reference range was not used to interpret this result as normal/abnormal . [facility] [employer] [id number] 11:07:00 Test Item Value Reference Range Interpretation Comments Lactic Acid Lvl (test code = Lactic 0.6 0.5-2.2 Acid Lvl) [facility] H[id number] 11:07:00 Test Item Value Reference Range Interpretation Comments PTT (test code = PTT) 40.6 s 22.9-35.8 [facility] H[id number] 11:07:00 Test Item Value Reference Range Interpretation Comments PT (test code = PT) 14.0 s 12.0-14.7 [facility] Hos[id number] 11:07:00 Test Item Value Reference Range Interpretation Comments INR (test code = INR) 1.08 1 0.85-1.17 [facility] [id number] 11:07:00 Test Item Value Reference Range Interpretation Comments Troponin-I (test code no gt See_Comment [Auto mated message] The = Troponin-I) system which g enerated this result transmit emerson reference range : <=0.40. The reference r yared was not used to interpr et this result as erinn l/abnormal. [place] 065730-09-28 11:07:00 Test Item Value Reference Range Interpretation Comments Magnesium Lvl (test code = Magnesium 1.8 1.8-2.4 Lvl) [place] 065730-09-28 11:07:00 Test Item Value Reference Range Interpretation Comments Phosphorus (test code = Phosphorus) 5.3 2.5-4.5 [place] 065730-09-28 11:07:00 Test Item Value Reference Range Interpretation Comments Lipase Lvl (test code = Lipase Lvl) 48 73-393 [place] 065730-09-28 11:07:00 Test Item Value Reference Range Interpretation Comments Total Protein (test code = Total 5.3 6.4-8.4 Protein) [place] 065730-09-28 11:07:00 Test Item Value Reference Range Interpretation Comments Albumin Lvl (test code = Albumin Lvl) 1.6 3.5-5.0 [place] 065730-09-28 11:07:00 Test Item Value Reference Range Interpretation Comments Globulin (test code = Globulin) 3.7 2.7-4.2 [place] 065730-09-28 11:07:00 Test Item Value Reference Range Interpretation Comments A/G Ratio (test code = A/G Ratio) 0.4 1 0.7-1.6 [place] 065730-09-28 11:07:00 Test Item Value Reference Range Interpretation Comments ALT (test code = ALT) 12 See_Comment [Auto mated message] The system which ge nerated this result transmit emerson reference range : <=65. The reference range was not used to interpr et this result as erinn l/abnormal. [place] 065730-09-28 11:07:00 Test Item Value Reference Range Interpretation Comments AST (test code = AST) 13 See_Comment [Auto mated message] The system which ge nerated this result transmit emerson reference range : <=37. The reference range was not used to interpr et this result as erinn l/abnormal. [facility] [id number] 11:07:00 Test Item Value Reference Range Interpretation Comments Alk Phos (test code = Alk Phos) 67 39-136 [facility]2020-09-28 11:07:00 Test Item Value Reference Range Interpretation Comments Bili Total (test code = Bili Total) 0.6 0.2-1.3 [facility] [id number] 11:07:00 Test Item Value Reference Range Interpretation Comments Bili Direct (test code no gt See_Comment [Aut omated message] The = Bili Direct) system which generated this result tra nsmitted reference range : <=0.3. The reference r yared was not used to int erpret this result as erinn l/abnormal. [facility]2020-09-28 11:07:00 Test Item Value Reference Range Interpretation Comments Bili Indirect Unable to See_Comment [Automated (test code = Bili Calculate message] T he system Indirect) which generated this result transmitted reference range : <=1.0. The reference range was not used to interpret this result as normal/abnormal . [facility] [id number] 11:07:00 Test Item Value Reference Range Interpretation Comments Lactic Acid Lvl (test code = Lactic 0.6 0.5-2.2 Acid Lvl) [id number] 11:07:00 Test Item Value Reference Range Interpretation Comments PTT (test code = PTT) 40.6 s 22.9-35.8 [facility] [id number] 11:07:00 Test Item Value Reference Range Interpretation Comments PT (test code = PT) 14.0 s 12.0-14.7 [id number] 11:07:00 Test Item Value Reference Range Interpretation Comments INR (test code = INR) 1.08 1 0.85-1.17 [facility] HospitalCARD[facility]AC [id number] 11:07:00 Test Item Value Reference Range Interpretation Comments Troponin-I (test code no gt See_Comment [Auto mated message] The = Troponin-I) system which g enerated this result transmit emerson reference range : <=0.40. The reference r yared was not used to interpr et this result as erinn l/abnormal. [facility] [id number] 11:07:00 Test Item Value Reference Range Interpretation Comments Magnesium Lvl (test code = Magnesium 1.8 1.8-2.4 Lvl) [facility] [employer] [id number] 11:07:00 Test Item Value Reference Range Interpretation Comments Phosphorus (test code = Phosphorus) 5.3 2.5-4.5 [facility] [id number] 11:07:00 Test Item Value Reference Range Interpretation Comments Lipase Lvl (test code = Lipase Lvl) 48 73-[address] [facility] [employer] [id number] 11:07:00 Test Item Value Reference Range Interpretation Comments Total Protein (test code = Total 5.3 6.4-8.4 Protein) [facility] [employer] [id number] 11:07:00 Test Item Value Reference Range Interpretation Comments Albumin Lvl (test code = Albumin Lvl) 1.6 3.5-5.[address] [facility] [employer] [id number] 11:07:00 Test Item Value Reference Range Interpretation Comments Globulin (test code = Globulin) 3.7 2.7-4.[address] [facility] [employer] [id number] 11:07:00 Test Item Value Reference Range Interpretation Comments A/G Ratio (test code = A/G Ratio) 0.4 1 0.7-1.[address] [facility] [employer] [id number] 11:07:00 Test Item Value Reference Range Interpretation Comments ALT (test code = ALT) 12 See_Comment [Auto mated message] The system which ge nerated this result transmit emerson reference range : <=65. The reference range was not used to interpr et this result as erinn l/abnormal. [facility] [employer] [id number] 11:07:00 Test Item Value Reference Range Interpretation Comments AST (test code = AST) 13 See_Comment [Auto mated message] The system which ge nerated this result transmit emerson reference range : <=37. The reference range was not used to interpr et this result as erinn l/abnormal. [facility] [employer] [id number] 11:07:00 Test Item Value Reference Range Interpretation Comments Alk Phos (test code = Alk Phos) 67 39-[address] [facility] [employer] [id number] 11:07:00 Test Item Value Reference Range Interpretation Comments Bili Total (test code = Bili Total) 0.6 0.2-1.3 [facility]2020-09-28 11:07:00 Test Item Value Reference Range Interpretation Comments Bili Direct (test code no gt See_Comment [Aut omated message] The = Bili Direct) system which generated this result tra nsmitted reference range : <=0.3. The reference r yared was not used to int erpret this result as erinn l/abnormal. [place] 065730-09-28 11:07:00 Test Item Value Reference Range Interpretation Comments Bili Indirect Unable to See_Comment [Automated (test code = Bili Calculate message] T he system Indirect) which generated this result transmitted reference range : <=1.0. The reference range was not used to interpret this result as normal/abnormal . [place] 065730-09-28 11:07:00 Test Item Value Reference Range Interpretation Comments Lactic Acid Lvl (test code = Lactic 0.6 0.5-2.2 Acid Lvl) [place] [id number] 11:07:00 Test Item Value Reference Range Interpretation Comments PTT (test code = PTT) 40.6 s 22.9-35.8 [place] [address]-09-28 11:07:00 Test Item Value Reference Range Interpretation Comments PT (test code = PT) 14.0 s 12.0-14.7 [place] [address]-09-28 11:07:00 Test Item Value Reference Range Interpretation Comments INR (test code = INR) 1.08 1 0.85-1.17 [place] 065730-08-13 13:56:00 Test Item Value Reference Range Interpretation Comments Glucose Lvl (test code = Glucose Lvl) 97 70-99 [place] 065730-08-13 13:56:00 Test Item Value Reference Range Interpretation Comments BUN (test code = BUN) 41 7-22 [place] 065730-08-13 13:56:00 Test Item Value Reference Range Interpretation Comments Creatinine Lvl (test code = Creatinine 10.50 0.50-1.40 Lvl) [place] 065730-08-13 13:56:00 Test Item Value Reference Range Interpretation Comments Sodium Lvl (test code = Sodium Lvl) 133 135-145 [place] 065730-08-13 13:56:00 Test Item Value Reference Range Interpretation Comments Potassium Lvl (test code = Potassium 3.2 3.5-5.1 Lvl) [place] 065730-08-13 13:56:00 Test Item Value Reference Range Interpretation Comments Chloride Lvl (test code = Chloride Lvl) 94 95-109 [place] [address]-08-13 13:56:00 Test Item Value Reference Range Interpretation Comments CO2 (test code = CO2) 28 24-32 [place] [address]-08-13 13:56:00 Test Item Value Reference Range Interpretation Comments Calcium Lvl (test code = Calcium Lvl) 9.5 8.5-10.5 [facility] [id number] 13:56:00 Test Item Value Reference Range Interpretation Comments AGAP (test code = AGAP) 14.2 10.0-20.0 [place] [address]-08-13 13:56:00 Test Item Value Reference Range Interpretation Comments eGFR (test code = eGFR) 5 [place] 065730-08-13 13:56:00 Test Item Value Reference Range Interpretation Comments Total Protein (test code = Total 5.4 6.4-8.4 Protein) [place] [address]-08-13 13:56:00 Test Item Value Reference Range Interpretation Comments Albumin Lvl (test code = Albumin Lvl) 2.3 3.5-5.0 [facility] [id number] 13:56:00 Test Item Value Reference Range Interpretation Comments ALT (test code = ALT) 16 See_Comment [Auto mated message] The system which ge nerated this result transmit emerson reference range : <=65. The reference range was not used to interpr et this result as erinn l/abnormal. [facility] [id number] 13:56:00 Test Item Value Reference Range Interpretation Comments AST (test code = AST) 26 See_Comment [Auto mated message] The system which ge nerated this result transmit emerson reference range : <=37. The reference range was not used to interpr et this result as erinn l/abnormal. [facility] [id number] 13:56:00 Test Item Value Reference Range Interpretation Comments Alk Phos (test code = Alk Phos) 82 39-136 [facility] [id number] 13:56:00 Test Item Value Reference Range Interpretation Comments Bili Total (test code = Bili Total) 0.4 0.2-1.3 [place] [address]-08-13 13:56:00 Test Item Value Reference Range Interpretation Comments Bili Direct (test code 0.1 See_Comment [Aut omated message] The = Bili Direct) system which generated this result tra nsmitted reference range : <=0.3. The reference r yared was not used to int erpret this result as erinn l/abnormal. [place] [address]-08-13 13:56:00 Test Item Value Reference Range Interpretation Comments Bili Indirect (test 0.3 See_Comment [Automa emerson message] The code = Bili Indirect) system which generated this result tra nsmitted reference range : <=1.0. The reference r yared was not used to int erpret this result as normal/abnormal . [place] [address]-08-13 13:56:00 Test Item Value Reference Range Interpretation Comments Globulin (test code = Globulin) 3.1 2.7-4.2 [place] [address]-08-13 13:56:00 Test Item Value Reference Range Interpretation Comments A/G Ratio (test code = A/G Ratio) 0.7 1 0.7-1.6 [place] [address]-08-13 13:56:00 Test Item Value Reference Range Interpretation Comments Lipase Lvl (test code = Lipase Lvl) 41 73-393 [place] [address]-08-13 13:56:00 Test Item Value Reference Range Interpretation Comments WBC (test code = WBC) 5.3 3.7-10.4 [place] [address]-08-13 13:56:00 Test Item Value Reference Range Interpretation Comments RBC (test code = RBC) 2.56 4.70-6.10 [place] [address]-08-13 13:56:00 Test Item Value Reference Range Interpretation Comments Hgb (test code = Hgb) 7.6 14.0-18.0 [place] [address]-08-13 13:56:00 Test Item Value Reference Range Interpretation Comments Hct (test code = Hct) 21.8 42.0-54.0 [place] [address]-08-13 13:56:00 Test Item Value Reference Range Interpretation Comments MCV (test code = MCV) 85.2 80.0-94.0 [place] 799140-08-13 13:56:00 Test Item Value Reference Range Interpretation Comments MCH (test code = MCH) 29.6 pg 27.0-31.0 [place] [address]-08-13 13:56:00 Test Item Value Reference Range Interpretation Comments MCHC (test code = MCHC) 34.8 32.0-36.0 [place] 799140-08-13 13:56:00 Test Item Value Reference Range Interpretation Comments RDW (test code = RDW) 13.9 11.5-14.5 [place] 799140-08-13 13:56:00 Test Item Value Reference Range Interpretation Comments Platelet (test code = Platelet) 170 133-450 [place] 799140-08-13 13:56:00 Test Item Value Reference Range Interpretation Comments MPV (test code = MPV) 7.1 7.4-10.4 [id number] 13:56:00 Test Item Value Reference Range Interpretation Comments Segs (test code = Segs) 67.4 45.0-75.0 [facility] [id number] 13:56:00 Test Item Value Reference Range Interpretation Comments Lymphocytes (test code = Lymphocytes) 15.2 20.0-40.0 [place] [address]-08-13 13:56:00 Test Item Value Reference Range Interpretation Comments Monocytes (test code = Monocytes) 8.6 2.0-12.0 [place] [address]-08-13 13:56:00 Test Item Value Reference Range Interpretation Comments Eosinophils (test code = 7.8 See_Comment [A utomated message] The Eosinophils) system which ge nerated this result tra nsmitted reference range : <=4.0. The reference r yared was not used to int erpret this result as normal/abnormal . [place] [address]-08-13 13:56:00 Test Item Value Reference Range Interpretation Comments Basophils (test code = 1.0 See_Comment [Aut omated message] The Basophils) system which ge nerated this result tra nsmitted reference range : <=1.0. The reference r yared was not used to int erpret this result as normal/abnormal . [place] [address]-08-13 13:56:00 Test Item Value Reference Range Interpretation Comments Neutrophils # (test code = Neutrophils 3.6 1.5-8.1 #) [facility] [id number] 13:56:00 Test Item Value Reference Range Interpretation Comments Lymphocytes # (test code = Lymphocytes 0.8 1.0-5.5 #) [place] 799140-08-13 13:56:00 Test Item Value Reference Range Interpretation Comments Monocytes # (test code 0.5 See_Comment [Aut omated message] The = Monocytes #) system which generated this result tra nsmitted reference range : <=0.8. The reference r yared was not used to int erpret this result as normal/abnormal . [place] [address]-08-13 13:56:00 Test Item Value Reference Range Interpretation Comments Eosinophils # (test code 0.4 See_Comment [A utomated message] The = Eosinophils #) system whic h generated this result tra nsmitted reference range : <=0.5. The reference r yared was not used to int erpret this result as normal/abnormal . [place] 799140-08-13 13:56:00 Test Item Value Reference Range Interpretation Comments Basophils # (test code 0.1 See_Comment [Aut omated message] The = Basophils #) system which generated this result tra nsmitted reference range : <=0.2. The reference r yared was not used to int erpret this result as normal/abnormal . [facility]2020-08-13 13:56:00 Test Item Value Reference Range Interpretation Comments Glucose Lvl (test code = Glucose Lvl) 97 70-99 [place] 065730-08-13 13:56:00 Test Item Value Reference Range Interpretation Comments BUN (test code = BUN) 41 7-22 [place] 065730-08-13 13:56:00 Test Item Value Reference Range Interpretation Comments Creatinine Lvl (test code = Creatinine 10.50 0.50-1.40 Lvl) [place] 065730-08-13 13:56:00 Test Item Value Reference Range Interpretation Comments Sodium Lvl (test code = Sodium Lvl) 133 135-145 [place] [address]-08-13 13:56:00 Test Item Value Reference Range Interpretation Comments Potassium Lvl (test code = Potassium 3.2 3.5-5.1 Lvl) [place] [address]-08-13 13:56:00 Test Item Value Reference Range Interpretation Comments Chloride Lvl (test code = Chloride Lvl) 94 95-109 [place] [address]-08-13 13:56:00 Test Item Value Reference Range Interpretation Comments CO2 (test code = CO2) 28 24-32 [facility] [id number] 13:56:00 Test Item Value Reference Range Interpretation Comments Calcium Lvl (test code = Calcium Lvl) 9.5 8.5-10.5 [facility] [id number] 13:56:00 Test Item Value Reference Range Interpretation Comments AGAP (test code = AGAP) 14.2 10.0-20.0 [place] [address]-08-13 13:56:00 Test Item Value Reference Range Interpretation Comments eGFR (test code = eGFR) 5 [facility] [id number] 13:56:00 Test Item Value Reference Range Interpretation Comments Total Protein (test code = Total 5.4 6.4-8.4 Protein) [facility] [id number] 13:56:00 Test Item Value Reference Range Interpretation Comments Albumin Lvl (test code = Albumin Lvl) 2.3 3.5-5.0 [facility] [id number] 13:56:00 Test Item Value Reference Range Interpretation Comments ALT (test code = ALT) 16 See_Comment [Auto mated message] The system which ge nerated this result transmit emerson reference range : <=65. The reference range was not used to interpr et this result as erinn l/abnormal. [facility] [id number] 13:56:00 Test Item Value Reference Range Interpretation Comments AST (test code = AST) 26 See_Comment [Auto mated message] The system which ge nerated this result transmit emerson reference range : <=37. The reference range was not used to interpr et this result as erinn l/abnormal. [facility] [id number] 13:56:00 Test Item Value Reference Range Interpretation Comments Alk Phos (test code = Alk Phos) 82 39-136 [place] [address]-08-13 13:56:00 Test Item Value Reference Range Interpretation Comments Bili Total (test code = Bili Total) 0.4 0.2-1.3 [place] [address]-08-13 13:56:00 Test Item Value Reference Range Interpretation Comments Bili Direct (test code 0.1 See_Comment [Aut omated message] The = Bili Direct) system which generated this result tra nsmitted reference range : <=0.3. The reference r yared was not used to int erpret this result as erinn l/abnormal. [place] [address]-08-13 13:56:00 Test Item Value Reference Range Interpretation Comments Bili Indirect (test 0.3 See_Comment [Automa emerson message] The code = Bili Indirect) system which generated this result tra nsmitted reference range : <=1.0. The reference r yared was not used to int erpret this result as normal/abnormal . [place] 065730-08-13 13:56:00 Test Item Value Reference Range Interpretation Comments Globulin (test code = Globulin) 3.1 2.7-4.2 [place] [address]-08-13 13:56:00 Test Item Value Reference Range Interpretation Comments A/G Ratio (test code = A/G Ratio) 0.7 1 0.7-1.6 [place] [address]-08-13 13:56:00 Test Item Value Reference Range Interpretation Comments Lipase Lvl (test code = Lipase Lvl) 41 73-393 [place] [address]-08-13 13:56:00 Test Item Value Reference Range Interpretation Comments WBC (test code = WBC) 5.3 3.7-10.4 [place] [address]-08-13 13:56:00 Test Item Value Reference Range Interpretation Comments RBC (test code = RBC) 2.56 4.70-6.10 [place] [address]-08-13 13:56:00 Test Item Value Reference Range Interpretation Comments Hgb (test code = Hgb) 7.6 14.0-18.0 [place] [address]-08-13 13:56:00 Test Item Value Reference Range Interpretation Comments Hct (test code = Hct) 21.8 42.0-54.0 [place] [address]-08-13 13:56:00 Test Item Value Reference Range Interpretation Comments MCV (test code = MCV) 85.2 80.0-94.0 [place] [address]-08-13 13:56:00 Test Item Value Reference Range Interpretation Comments MCH (test code = MCH) 29.6 pg 27.0-31.0 [place] [address]-08-13 13:56:00 Test Item Value Reference Range Interpretation Comments MCHC (test code = MCHC) 34.8 32.0-36.0 [place] [address]-08-13 13:56:00 Test Item Value Reference Range Interpretation Comments RDW (test code = RDW) 13.9 11.5-14.5 [place] [address]-08-13 13:56:00 Test Item Value Reference Range Interpretation Comments Platelet (test code = Platelet) 170 133-450 [place] 799140-08-13 13:56:00 Test Item Value Reference Range Interpretation Comments MPV (test code = MPV) 7.1 7.4-10.4 [place] 799140-08-13 13:56:00 Test Item Value Reference Range Interpretation Comments Segs (test code = Segs) 67.4 45.0-75.0 [place] [address]-08-13 13:56:00 Test Item Value Reference Range Interpretation Comments Lymphocytes (test code = Lymphocytes) 15.2 20.0-40.0 [place] [address]-08-13 13:56:00 Test Item Value Reference Range Interpretation Comments Monocytes (test code = Monocytes) 8.6 2.0-12.0 [place] [address]-08-13 13:56:00 Test Item Value Reference Range Interpretation Comments Eosinophils (test code = 7.8 See_Comment [A utomated message] The Eosinophils) system which ge nerated this result tra nsmitted reference range : <=4.0. The reference r yared was not used to int erpret this result as normal/abnormal . [place] [address]-08-13 13:56:00 Test Item Value Reference Range Interpretation Comments Basophils (test code = 1.0 See_Comment [Aut omated message] The Basophils) system which ge nerated this result tra nsmitted reference range : <=1.0. The reference r yared was not used to int erpret this result as normal/abnormal . [facility] [id number] 13:56:00 Test Item Value Reference Range Interpretation Comments Neutrophils # (test code = Neutrophils 3.6 1.5-8.1 #) [facility] [id number] 13:56:00 Test Item Value Reference Range Interpretation Comments Lymphocytes # (test code = Lymphocytes 0.8 1.0-5.5 #) [facility] CentralWrwpztqBISSRVTEKB8715-15-93 13:56:00 Test Item Value Reference Range Interpretation Comments Monocytes # (test code 0.5 See_Comment [Aut omated message] The = Monocytes #) system which generated this result tra nsmitted reference range : <=0.8. The reference r yared was not used to int erpret this result as normal/abnormal . [place] 799140-08-13 13:56:00 Test Item Value Reference Range Interpretation Comments Eosinophils # (test code 0.4 See_Comment [A utomated message] The = Eosinophils #) system whic h generated this result tra nsmitted reference range : <=0.5. The reference r yared was not used to int erpret this result as normal/abnormal . [facility] [id number] 13:56:00 Test Item Value Reference Range Interpretation Comments Basophils # (test code 0.1 See_Comment [Aut omated message] The = Basophils #) system which generated this result tra nsmitted reference range : <=0.2. The reference r yared was not used to int erpret this result as normal/abnormal . [facility] [id number] 13:56:00 Test Item Value Reference Range Interpretation Comments eGFR (test code = eGFR) 5 [facility] [id number] 13:56:00 Test Item Value Reference Range Interpretation Comments Total Protein (test code = Total 5.4 6.4-8.4 Protein) [facility]2020-08-13 13:56:00 Test Item Value Reference Range Interpretation Comments Albumin Lvl (test code = Albumin Lvl) 2.3 3.5-5.0 [place] 065730-08-13 13:56:00 Test Item Value Reference Range Interpretation Comments ALT (test code = ALT) 16 See_Comment [Auto mated message] The system which ge nerated this result transmit emerson reference range : <=65. The reference range was not used to interpr et this result as erinn l/abnormal. [facility] [id number] 13:56:00 Test Item Value Reference Range Interpretation Comments AST (test code = AST) 26 See_Comment [Auto mated message] The system which ge nerated this result transmit emerson reference range : <=37. The reference range was not used to interpr et this result as erinn l/abnormal. [facility] [id number] 13:56:00 Test Item Value Reference Range Interpretation Comments Alk Phos (test code = Alk Phos) 82 39-136 [facility] [id number] 13:56:00 Test Item Value Reference Range Interpretation Comments Bili Total (test code = Bili Total) 0.4 0.2-1.3 [place] [address]-08-13 13:56:00 Test Item Value Reference Range Interpretation Comments Bili Direct (test code 0.1 See_Comment [Aut omated message] The = Bili Direct) system which generated this result tra nsmitted reference range : <=0.3. The reference r yared was not used to int erpret this result as erinn l/abnormal. [facility] [id number] 13:56:00 Test Item Value Reference Range Interpretation Comments Bili Indirect (test 0.3 See_Comment [Automa emerson message] The code = Bili Indirect) system which generated this result tra nsmitted reference range : <=1.0. The reference r yared was not used to int erpret this result as normal/abnormal . [facility] [id number] 13:56:00 Test Item Value Reference Range Interpretation Comments Globulin (test code = Globulin) 3.1 2.7-4.2 [facility] [id number] 13:56:00 Test Item Value Reference Range Interpretation Comments A/G Ratio (test code = A/G Ratio) 0.7 1 0.7-1.6 [place] [address]-08-13 13:56:00 Test Item Value Reference Range Interpretation Comments Lipase Lvl (test code = Lipase Lvl) 41 73-393 [facility] CentralRawoxoxDDBHTSCNCU0493-24-74 13:56:00 Test Item Value Reference Range Interpretation Comments WBC (test code = WBC) 5.3 3.7-10.4 [facility] CentralIuappbbQYAXVGNZRY2965-82-61 13:56:00 Test Item Value Reference Range Interpretation Comments RBC (test code = RBC) 2.56 4.70-6.10 [facility] C[id number] 13:56:00 Test Item Value Reference Range Interpretation Comments Hgb (test code = Hgb) 7.6 14.0-18.0 [place] [address]-08-13 13:56:00 Test Item Value Reference Range Interpretation Comments Hct (test code = Hct) 21.8 42.0-54.0 [place] [address]-08-13 13:56:00 Test Item Value Reference Range Interpretation Comments MCV (test code = MCV) 85.2 80.0-94.0 [place] [address]-08-13 13:56:00 Test Item Value Reference Range Interpretation Comments MCH (test code = MCH) 29.6 pg 27.0-31.0 [facility] [id number] 13:56:00 Test Item Value Reference Range Interpretation Comments MCHC (test code = MCHC) 34.8 32.0-36.0 [facility] [id number] 13:56:00 Test Item Value Reference Range Interpretation Comments RDW (test code = RDW) 13.9 11.5-14.5 [facility] [id number] 13:56:00 Test Item Value Reference Range Interpretation Comments Platelet (test code = Platelet) 170 133-450 [facility] [id number] 13:56:00 Test Item Value Reference Range Interpretation Comments MPV (test code = MPV) 7.1 7.4-10.4 [place] [address]-08-13 13:56:00 Test Item Value Reference Range Interpretation Comments Segs (test code = Segs) 67.4 45.0-75.0 [place] [address]-08-13 13:56:00 Test Item Value Reference Range Interpretation Comments Lymphocytes (test code = Lymphocytes) 15.2 20.0-40.0 [place] 799140-08-13 13:56:00 Test Item Value Reference Range Interpretation Comments Monocytes (test code = Monocytes) 8.6 2.0-12.0 [place] [address]-08-13 13:56:00 Test Item Value Reference Range Interpretation Comments Eosinophils (test code = 7.8 See_Comment [A utomated message] The Eosinophils) system which ge nerated this result tra nsmitted reference range : <=4.0. The reference r yared was not used to int erpret this result as normal/abnormal . [place] [address]-08-13 13:56:00 Test Item Value Reference Range Interpretation Comments Basophils (test code = 1.0 See_Comment [Aut omated message] The Basophils) system which ge nerated this result tra nsmitted reference range : <=1.0. The reference r yared was not used to int erpret this result as normal/abnormal . [place] [address]-08-13 13:56:00 Test Item Value Reference Range Interpretation Comments Neutrophils # (test code = Neutrophils 3.6 1.5-8.1 #) [place] [address]-08-13 13:56:00 Test Item Value Reference Range Interpretation Comments Lymphocytes # (test code = Lymphocytes 0.8 1.0-5.5 #) [place] [address]-08-13 13:56:00 Test Item Value Reference Range Interpretation Comments Monocytes # (test code 0.5 See_Comment [Aut omated message] The = Monocytes #) system which generated this result tra nsmitted reference range : <=0.8. The reference r yared was not used to int erpret this result as normal/abnormal . [place] [address]-08-13 13:56:00 Test Item Value Reference Range Interpretation Comments Eosinophils # (test code 0.4 See_Comment [A utomated message] The = Eosinophils #) system whic h generated this result tra nsmitted reference range : <=0.5. The reference r yared was not used to int erpret this result as normal/abnormal . [place] [address]-08-13 13:56:00 Test Item Value Reference Range Interpretation Comments Basophils # (test code 0.1 See_Comment [Aut omated message] The = Basophils #) system which generated this result tra nsmitted reference range : <=0.2. The reference r yared was not used to int erpret this result as normal/abnormal . [facility] [employer] [id number] 13:56:00 Test Item Value Reference Range Interpretation Comments Glucose Lvl (test code = Glucose Lvl) 97 70-99 [facility] [id number] 13:56:00 Test Item Value Reference Range Interpretation Comments BUN (test code = BUN) 41 7-[address] [facility] [employer] [id number] 13:56:00 Test Item Value Reference Range Interpretation Comments Creatinine Lvl (test code = Creatinine 10.50 0.50-1.40 Lvl) [facility] [employer] [id number] 13:56:00 Test Item Value Reference Range Interpretation Comments Sodium Lvl (test code = Sodium Lvl) 133 135-[address] [facility] [employer] [id number] 13:56:00 Test Item Value Reference Range Interpretation Comments Potassium Lvl (test code = Potassium 3.2 3.5-5.1 Lvl) [facility] [employer] [id number] 13:56:00 Test Item Value Reference Range Interpretation Comments Chloride Lvl (test code = Chloride Lvl) 94 95-[address] [facility] [employer] [id number] 13:56:00 Test Item Value Reference Range Interpretation Comments CO2 (test code = CO2) 28 24-[address] [facility] [employer] [id number] 13:56:00 Test Item Value Reference Range Interpretation Comments Calcium Lvl (test code = Calcium Lvl) 9.5 8.5-10.[address] [facility] [employer] [id number] 13:56:00 Test Item Value Reference Range Interpretation Comments AGAP (test code = AGAP) 14.2 10.0-20.0 [employer] [id number] 06:28:00 Test Item Value Reference Range Interpretation Comments ABO/Rh (test code = ABO/Rh) O POS [employer] [id number] 06:28:00 Test Item Value Reference Range Interpretation Comments Antibody Scrn (test Negative (03/23/20 1:28 code = Antibody Scrn) AM) [employer] [id number] 06:28:00 Test Item Value Reference Range Interpretation Comments ABO/Rh (test code = ABO/Rh) O POS [employer] [id number] 06:28:00 Test Item Value Reference Range Interpretation Comments Antibody Scrn (test Negative (03/23/20 1:28 code = Antibody Scrn) AM) [employer] [id number] 06:28:00 Test Item Value Reference Range Interpretation Comments ABO/Rh (test code = ABO/Rh) O POS [facility] [employer] [id number] 06:28:00 Test Item Value Reference Range Interpretation Comments Antibody Scrn (test Negative (03/23/20 1:28 code = Antibody Scrn) AM) [employer] [id number] 06:23:00 Test Item Value Reference Range Interpretation Comments RBC product (test code Product available = RBC product) 2(03/23/20 1:23 AM) [facility] [employer] [id number] 06:23:00 Test Item Value Reference Range Interpretation Comments RBC product (test code Product available = RBC product) 2(03/23/20 1:23 AM) [facility] [employer] [id number] 06:23:00 Test Item Value Reference Range Interpretation Comments RBC product (test code Product available = RBC product) 2(03/23/20 1:23 AM) [employer]2020-06-15 06:08:00 Test Item Value Reference Range Interpretation Comments RBC BF (test code = RBC BF) [id number] [facility] [employer]2020-06-15 06:08:00 Test Item Value Reference Range Interpretation Comments Nucleated Cells BF (test code = 1316 Nucleated Cells BF) [employer]2020-06-15 06:08:00 Test Item Value Reference Range Interpretation Comments Neutrophils BF (test code = Neutrophils 37 BF) [employer]2020-06-15 06:08:00 Test Item Value Reference Range Interpretation Comments Lymph BF (test code = Lymph BF) 4 [employer]2020-06-15 06:08:00 Test Item Value Reference Range Interpretation Comments Macrophage BF (test code = Macrophage 54 BF) [employer]2020-06-15 06:08:00 Test Item Value Reference Range Interpretation Comments Eos BF (test code = Eos BF) [address] [facility] [employer]2020-06-15 06:08:00 Test Item Value Reference Range Interpretation Comments Meso BF (test code = Meso BF) 2 [facility]2020-06-15 06:08:00 Test Item Value Reference Range Interpretation Comments Clarity BF (test code = Bloody *ABN*(03/23/20 Clarity BF) 1:08 AM) [facility]2020-06-15 06:08:00 Test Item Value Reference Range Interpretation Comments Color BF (test code = Red *ABN*(03/23/20 1:08 Color BF) AM) [facility]2020-06-15 06:08:00 Test Item Value Reference Range Interpretation Comments Supernat BF (test code = Yellow *ABN*(03/23/20 Supernat BF) 1:08 AM) [facility]2020-06-15 06:08:00 Test Item Value Reference Range Interpretation Comments CellCnt BF Type (test Periton (03/23/20 1:08 code = CellCnt BF Type) AM) [facility] [id number] 06:08:00 Test Item Value Reference Range Interpretation Comments Glucose Lvl (test code = Glucose Lvl) 98 70-99 [facility] [id number] 06:08:00 Test Item Value Reference Range Interpretation Comments BUN (test code = BUN) 81 7-22 [facility] [id number] 06:08:00 Test Item Value Reference Range Interpretation Comments Creatinine Lvl (test code = Creatinine 14.40 0.50-1.40 Lvl) [facility] [id number] 06:08:00 Test Item Value Reference Range Interpretation Comments Sodium Lvl (test code = Sodium Lvl) 129 135-145 [facility] [id number] 06:08:00 Test Item Value Reference Range Interpretation Comments Potassium Lvl (test code = Potassium 4.8 3.5-5.1 Lvl) [facility] [id number] 06:08:00 Test Item Value Reference Range Interpretation Comments Chloride Lvl (test code = Chloride Lvl) 90 95-109 [facility] [id number] 06:08:00 Test Item Value Reference Range Interpretation Comments CO2 (test code = CO2) 27 24-32 [facility] [id number] 06:08:00 Test Item Value Reference Range Interpretation Comments Calcium Lvl (test code = Calcium Lvl) 8.7 8.5-10.[address] [facility] [employer] [id number] 06:08:00 Test Item Value Reference Range Interpretation Comments Total Protein (test code = Total 5.7 6.4-8.4 Protein) [facility] [id number] 06:08:00 Test Item Value Reference Range Interpretation Comments Albumin Lvl (test code = Albumin Lvl) 2.5 3.5-5.[address] [facility] [employer] [id number] 06:08:00 Test Item Value Reference Range Interpretation Comments ALT (test code = ALT) 32 See_Comment [Auto mated message] The system which ge nerated this result transmit emerson reference range : <=65. The reference range was not used to interpr et this result as erinn l/abnormal. [facility] [employer] [id number] 06:08:00 Test Item Value Reference Range Interpretation Comments AST (test code = AST) 36 See_Comment [Auto mated message] The system which ge nerated this result transmit emerson reference range : <=37. The reference range was not used to interpr et this result as erinn l/abnormal. [facility] [employer] [id number] 06:08:00 Test Item Value Reference Range Interpretation Comments Alk Phos (test code = Alk Phos) 110 39-[address] [facility] [employer] [id number] 06:08:00 Test Item Value Reference Range Interpretation Comments Bili Total (test code = Bili Total) 0.5 0.2-1.[address] [facility] [employer] [id number] 06:08:00 Test Item Value Reference Range Interpretation Comments AGAP (test code = AGAP) 16.8 10.0-20.[address] [facility] [employer] [id number] 06:08:00 Test Item Value Reference Range Interpretation Comments B/C Ratio (test code = B/C Ratio) 6 1 6-[address] [facility] [employer] [id number] 06:08:00 Test Item Value Reference Range Interpretation Comments Globulin (test code = Globulin) 3.2 2.7-4.[address] [facility] [employer] [id number] 06:08:00 Test Item Value Reference Range Interpretation Comments A/G Ratio (test code = A/G Ratio) 0.8 1 0.7-1.6 [facility]2020-06-15 06:08:00 Test Item Value Reference Range Interpretation Comments eGFR (test code = eGFR) 3 [facility]2020-06-15 06:08:00 Test Item Value Reference Range Interpretation Comments Lactic Acid Lvl (test code = Lactic 0.6 0.5-2.2 Acid Lvl) [facility]XyulquqFSTJFRCOSW6239-39-62 06:08:00 Test Item Value Reference Range Interpretation Comments WBC (test code = WBC) 11.5 3.7-10.4 [facility] CentralKsdftpyDGIQKNCSIX5199-50-38 06:08:00 Test Item Value Reference Range Interpretation Comments RBC (test code = RBC) 2.12 4.70-6.10 [facility] CentralDfljjubCXZVUNDVJS9230-45-50 06:08:00 Test Item Value Reference Range Interpretation Comments Hgb (test code = Hgb) 6.1 14.0-18.0 [place] [address]-06-15 06:08:00 Test Item Value Reference Range Interpretation Comments Hct (test code = Hct) 18.4 42.0-54.0 [facility] CentralUmqhjjzHDVPLDDWOX6518-95-28 06:08:00 Test Item Value Reference Range Interpretation Comments MCV (test code = MCV) 86.5 80.0-94.0 [place] [address]-06-15 06:08:00 Test Item Value Reference Range Interpretation Comments MCH (test code = MCH) 28.6 pg 27.0-31.0 [facility] CentralMwvppavRXNAUCCOFT0877-71-16 06:08:00 Test Item Value Reference Range Interpretation Comments MCHC (test code = MCHC) 33.1 32.0-36.0 [facility] CentralMoxspzpWBPBWWTWJD6126-48-86 06:08:00 Test Item Value Reference Range Interpretation Comments RDW (test code = RDW) 15.9 11.5-14.5 [place] [address]-06-15 06:08:00 Test Item Value Reference Range Interpretation Comments Platelet (test code = Platelet) 316 929-450 [facility] CentralKackfhrLCXCRPTFWM2837-49-59 06:08:00 Test Item Value Reference Range Interpretation Comments MPV (test code = MPV) 6.8 7.4-10.4 [place] 799140-06-15 06:08:00 Test Item Value Reference Range Interpretation Comments PT (test code = PT) 13.9 s 12.0-14.7 [facility] CentralFkwzndlURHWAIPCFO3952-49-00 06:08:00 Test Item Value Reference Range Interpretation Comments INR (test code = INR) 1.07 1 0.85-1.17 [place] 799140-06-15 06:08:00 Test Item Value Reference Range Interpretation Comments RBC Morph (test code = Normal (03/23/20 1:08 RBC Morph) AM) [facility] CentralCzgeahgHLZUYLZTBV7135-40-37 06:08:00 Test Item Value Reference Range Interpretation Comments Plt Morph (test code = Normal (03/23/20 1:08 Plt Morph) AM) [facility] CentralFiqonlnZTMBJMIFOG3924-59-36 06:08:00 Test Item Value Reference Range Interpretation Comments Segs (test code = Segs) 80.9 45.0-75.0 [facility] CentralRuxndaoZAPAGKFVOB2573-19-76 06:08:00 Test Item Value Reference Range Interpretation Comments Lymphocytes (test code = Lymphocytes) 9.1 20.0-40.0 [facility] CentralKzgpmcbHYEUUCCZSS3421-82-35 06:08:00 Test Item Value Reference Range Interpretation Comments Monocytes (test code = Monocytes) 7.3 2.0-12.0 [facility] CentralJulwrnlQWNKPFWBZS7067-29-89 06:08:00 Test Item Value Reference Range Interpretation Comments Eosinophils (test code = 2.0 See_Comment [A utomated message] The Eosinophils) system which ge nerated this result tra nsmitted reference range : <=4.0. The reference r yared was not used to int erpret this result as normal/abnormal . [facility] CentralVrbhbpjIPSFDONDPC8498-08-21 06:08:00 Test Item Value Reference Range Interpretation Comments Basophils (test code = 0.7 See_Comment [Aut omated message] The Basophils) system which ge nerated this result tra nsmitted reference range : <=1.0. The reference r yared was not used to int erpret this result as normal/abnormal . [facility] CentralWykantuTSSLBAYLXA5956-29-17 06:08:00 Test Item Value Reference Range Interpretation Comments Neutrophils # (test code = Neutrophils 9.3 1.5-8.1 #) [facility] CentralXdywsbeCFWZHGFAQJ8534-86-35 06:08:00 Test Item Value Reference Range Interpretation Comments Lymphocytes # (test code = Lymphocytes 1.0 1.0-5.5 #) [facility] CentralSajyhaiDVTTDYBSGJ0084-31-94 06:08:00 Test Item Value Reference Range Interpretation Comments Monocytes # (test code 0.8 See_Comment [Aut omated message] The = Monocytes #) system which generated this result tra nsmitted reference range : <=0.8. The reference r yared was not used to int erpret this result as normal/abnormal . [facility] CentralDvloordIHVOFSUNBS5879-21-91 06:08:00 Test Item Value Reference Range Interpretation Comments Eosinophils # (test code 0.2 See_Comment [A utomated message] The = Eosinophils #) system whic h generated this result tra nsmitted reference range : <=0.5. The reference r yared was not used to int erpret this result as normal/abnormal . [facility] CentralQetxwsqUNOABMUYBL7418-72-73 06:08:00 Test Item Value Reference Range Interpretation Comments Basophils # (test code 0.1 See_Comment [Aut omated message] The = Basophils #) system which generated this result tra nsmitted reference range : <=0.2. The reference r yared was not used to int erpret this result as normal/abnormal . [facility] CentralEzzzoofIDWAUFDAEL7042-77-00 06:08:00 Test Item Value Reference Range Interpretation Comments Anisocyte (test code = 2+ *ABN*(03/23/20 Anisocyte) 1:08 AM) [facility] CentralAwdqlkmXNNESCWXSY9757-37-98 06:08:00 Test Item Value Reference Range Interpretation Comments Macrocyte (test code = 1+ *ABN*(03/23/20 Macrocyte) 1:08 AM) [facility] CentralBfcxofeOVYOVQBPLT4969-81-41 06:08:00 Test Item Value Reference Range Interpretation Comments Microcyte (test code = 1+ *ABN*(03/23/20 Microcyte) 1:08 AM) [facility] CentralUrrpajrQYNRQJVLKF9539-01-59 06:08:00 Test Item Value Reference Range Interpretation Comments Spherocyte (test code = Rare *ABN*(03/23/20 Spherocyte) 1:08 AM) [facility]2020-06-15 06:08:00 Test Item Value Reference Range Interpretation Comments RBC BF (test code = RBC BF) 585401 [facility]2020-06-15 06:08:00 Test Item Value Reference Range Interpretation Comments Nucleated Cells BF (test code = 1316 Nucleated Cells BF) [facility]2020-06-15 06:08:00 Test Item Value Reference Range Interpretation Comments Neutrophils BF (test code = Neutrophils 37 BF) [facility]2020-06-15 06:08:00 Test Item Value Reference Range Interpretation Comments Lymph BF (test code = Lymph BF) 4 [facility]2020-06-15 06:08:00 Test Item Value Reference Range Interpretation Comments Macrophage BF (test code = Macrophage 54 BF) [facility]2020-06-15 06:08:00 Test Item Value Reference Range Interpretation Comments Eos BF (test code = Eos BF) 3 [facility] [id number] 06:08:00 Test Item Value Reference Range Interpretation Comments Meso BF (test code = Meso BF) 2 [facility] HospitalBundleOGTAMU9410-66-15 06:08:00 Test Item Value Reference Range Interpretation Comments Clarity BF (test code = Bloody *ABN*(03/23/20 Clarity BF) 1:08 AM) [facility] [id number] 06:08:00 Test Item Value Reference Range Interpretation Comments Color BF (test code = Red *ABN*(03/23/20 1:08 Color BF) AM) [facility] [id number] 06:08:00 Test Item Value Reference Range Interpretation Comments Supernat BF (test code = Yellow *ABN*(03/23/20 Supernat BF) 1:08 AM) [facility] HospitalUnbounceCXGQCK1730-54-25 06:08:00 Test Item Value Reference Range Interpretation Comments CellCnt BF Type (test Periton (03/23/20 1:08 code = CellCnt BF Type) AM) [facility] [employer] [id number] 06:08:00 Test Item Value Reference Range Interpretation Comments Glucose Lvl (test code = Glucose Lvl) 98 70-[address] [facility] [employer] [id number] 06:08:00 Test Item Value Reference Range Interpretation Comments BUN (test code = BUN) 81 7-[address] [facility] [employer] [id number] 06:08:00 Test Item Value Reference Range Interpretation Comments Creatinine Lvl (test code = Creatinine 14.40 0.50-1.40 Lvl) [place] 065730-06-15 06:08:00 Test Item Value Reference Range Interpretation Comments Sodium Lvl (test code = Sodium Lvl) 129 135-145 [place] 065730-06-15 06:08:00 Test Item Value Reference Range Interpretation Comments Potassium Lvl (test code = Potassium 4.8 3.5-5.1 Lvl) [place] 065730-06-15 06:08:00 Test Item Value Reference Range Interpretation Comments Chloride Lvl (test code = Chloride Lvl) 90 95-109 [place] [address]-06-15 06:08:00 Test Item Value Reference Range Interpretation Comments CO2 (test code = CO2) 27 24-32 [place] [address]-06-15 06:08:00 Test Item Value Reference Range Interpretation Comments Calcium Lvl (test code = Calcium Lvl) 8.7 8.5-10.5 [place] 065730-06-15 06:08:00 Test Item Value Reference Range Interpretation Comments Total Protein (test code = Total 5.7 6.4-8.4 Protein) [place] 065730-06-15 06:08:00 Test Item Value Reference Range Interpretation Comments Albumin Lvl (test code = Albumin Lvl) 2.5 3.5-5.0 [place] 065730-06-15 06:08:00 Test Item Value Reference Range Interpretation Comments ALT (test code = ALT) 32 See_Comment [Auto mated message] The system which ge nerated this result transmit emerson reference range : <=65. The reference range was not used to interpr et this result as erinn l/abnormal. [place] 065730-06-15 06:08:00 Test Item Value Reference Range Interpretation Comments AST (test code = AST) 36 See_Comment [Auto mated message] The system which ge nerated this result transmit emerson reference range : <=37. The reference range was not used to interpr et this result as erinn l/abnormal. [place] 065730-06-15 06:08:00 Test Item Value Reference Range Interpretation Comments Alk Phos (test code = Alk Phos) 110 39-136 [facility] [id number] 06:08:00 Test Item Value Reference Range Interpretation Comments Bili Total (test code = Bili Total) 0.5 0.2-1.3 [facility]2020-06-15 06:08:00 Test Item Value Reference Range Interpretation Comments AGAP (test code = AGAP) 16.8 10.0-20.0 [place] 065730-06-15 06:08:00 Test Item Value Reference Range Interpretation Comments B/C Ratio (test code = B/C Ratio) 6 1 6-25 [place] 065730-06-15 06:08:00 Test Item Value Reference Range Interpretation Comments Globulin (test code = Globulin) 3.2 2.7-4.2 [facility]2020-06-15 06:08:00 Test Item Value Reference Range Interpretation Comments A/G Ratio (test code = A/G Ratio) 0.8 1 0.7-1.6 [place] [address]-06-15 06:08:00 Test Item Value Reference Range Interpretation Comments eGFR (test code = eGFR) 3 [facility]2020-06-15 06:08:00 Test Item Value Reference Range Interpretation Comments Lactic Acid Lvl (test code = Lactic 0.6 0.5-2.2 Acid Lvl) [facility] CentralWjyayhaQVVXEXNHPF7346-97-99 06:08:00 Test Item Value Reference Range Interpretation Comments WBC (test code = WBC) 11.5 3.7-10.4 [facility] CentralZhkeirvOKJJYRRMBA5592-35-85 06:08:00 Test Item Value Reference Range Interpretation Comments RBC (test code = RBC) 2.12 4.70-6.10 [facility] CentralFqrpmmgXWJLLEKIDX7734-99-30 06:08:00 Test Item Value Reference Range Interpretation Comments Hgb (test code = Hgb) 6.1 14.0-18.0 [place] [address]-06-15 06:08:00 Test Item Value Reference Range Interpretation Comments Hct (test code = Hct) 18.4 42.0-54.0 [place] [address]-06-15 06:08:00 Test Item Value Reference Range Interpretation Comments MCV (test code = MCV) 86.5 80.0-94.0 [place] [address]-06-15 06:08:00 Test Item Value Reference Range Interpretation Comments MCH (test code = MCH) 28.6 pg 27.0-31.0 [facility] CentralMjnsuutRLYYVDPSNQ4322-11-88 06:08:00 Test Item Value Reference Range Interpretation Comments MCHC (test code = MCHC) 33.1 32.0-36.0 [facility] CentralOqbdyclFXNVDYOQWE8743-39-13 06:08:00 Test Item Value Reference Range Interpretation Comments RDW (test code = RDW) 15.9 11.5-14.5 [facility] CentralIgcolpwPUOHAAFDBF0061-50-66 06:08:00 Test Item Value Reference Range Interpretation Comments Platelet (test code = Platelet) 316 133-450 [facility] CentralAkmkitwTXEMPWHQLF1535-23-26 06:08:00 Test Item Value Reference Range Interpretation Comments MPV (test code = MPV) 6.8 7.4-10.4 [facility] CentralIevcssjDVXKLRAALR5253-84-07 06:08:00 Test Item Value Reference Range Interpretation Comments PT (test code = PT) 13.9 s 12.0-14.7 [facility] CentralGiluqytGEVVRVVJEE3408-70-48 06:08:00 Test Item Value Reference Range Interpretation Comments INR (test code = INR) 1.07 1 0.85-1.17 [facility] CentralQhpekewEFOCBSQOYW3496-22-57 06:08:00 Test Item Value Reference Range Interpretation Comments RBC Morph (test code = Normal (03/23/20 1:08 RBC Morph) AM) [facility] CentralTuligkuUSBXTVKCIQ7420-76-45 06:08:00 Test Item Value Reference Range Interpretation Comments Plt Morph (test code = Normal (03/23/20 1:08 Plt Morph) AM) [facility] CentralNjavehgHXGWKQKKZQ2183-55-60 06:08:00 Test Item Value Reference Range Interpretation Comments Segs (test code = Segs) 80.9 45.0-75.0 [facility] CentralArxvhrdCBEWYBXXHL5441-36-72 06:08:00 Test Item Value Reference Range Interpretation Comments Lymphocytes (test code = Lymphocytes) 9.1 20.0-40.0 [place] 799140-06-15 06:08:00 Test Item Value Reference Range Interpretation Comments Monocytes (test code = Monocytes) 7.3 2.0-12.0 [facility] CentralVgsfbuiUSZECEQLPG2051-27-09 06:08:00 Test Item Value Reference Range Interpretation Comments Eosinophils (test code = 2.0 See_Comment [A utomated message] The Eosinophils) system which ge nerated this result tra nsmitted reference range : <=4.0. The reference r yared was not used to int erpret this result as normal/abnormal . [facility] CentralZcoydhbFNEKKBPJEE8848-26-57 06:08:00 Test Item Value Reference Range Interpretation Comments Basophils (test code = 0.7 See_Comment [Aut omated message] The Basophils) system which ge nerated this result tra nsmitted reference range : <=1.0. The reference r yared was not used to int erpret this result as normal/abnormal . [facility] CentralFwkkcfpKLPBOATFUR3813-43-45 06:08:00 Test Item Value Reference Range Interpretation Comments Neutrophils # (test code = Neutrophils 9.3 1.5-8.1 #) [facility] CentralIzdazflKEDFMYSULW8246-37-07 06:08:00 Test Item Value Reference Range Interpretation Comments Lymphocytes # (test code = Lymphocytes 1.0 1.0-5.5 #) [facility] CentralFxjvoegOTIDRRWYND4569-95-17 06:08:00 Test Item Value Reference Range Interpretation Comments Monocytes # (test code 0.8 See_Comment [Aut omated message] The = Monocytes #) system which generated this result tra nsmitted reference range : <=0.8. The reference r yared was not used to int erpret this result as normal/abnormal . [facility] CentralLkspxdxMUFRGKFPOC5920-28-92 06:08:00 Test Item Value Reference Range Interpretation Comments Eosinophils # (test code 0.2 See_Comment [A utomated message] The = Eosinophils #) system [facility] generated this result tra nsmitted reference range : <=0.5. The reference r yared was not used to int erpret this result as normal/abnormal . [facility] CentralLigbqvdHCFRQLEAQA1618-35-88 06:08:00 Test Item Value Reference Range Interpretation Comments Basophils # (test code 0.1 See_Comment [Aut omated message] The = Basophils #) system which generated this result tra nsmitted reference range : <=0.2. The reference r yared was not used to int erpret this result as normal/abnormal . [facility] CentralHxvvfwbWNJHCDRDMT2187-81-29 06:08:00 Test Item Value Reference Range Interpretation Comments Anisocyte (test code = 2+ *ABN*(03/23/20 Anisocyte) 1:08 AM) [place] 799140-06-15 06:08:00 Test Item Value Reference Range Interpretation Comments Macrocyte (test code = 1+ *ABN*(03/23/20 Macrocyte) 1:08 AM) [facility] CentralHwdlyymZTPNPNKRRD4367-63-24 06:08:00 Test Item Value Reference Range Interpretation Comments Microcyte (test code = 1+ *ABN*(03/23/20 Microcyte) 1:08 AM) [facility] CentralFzsajxgZNXONQUYMX3690-75-75 06:08:00 Test Item Value Reference Range Interpretation Comments Spherocyte (test code = Rare *ABN*(03/23/20 Spherocyte) 1:08 AM) [facility]2020-06-15 06:08:00 Test Item Value Reference Range Interpretation Comments RBC BF (test code = RBC BF) [id number] [facility]2020-06-15 06:08:00 Test Item Value Reference Range Interpretation Comments Nucleated Cells BF (test code = 1316 Nucleated Cells BF) [facility]2020-06-15 06:08:00 Test Item Value Reference Range Interpretation Comments Neutrophils BF (test code = Neutrophils 37 BF) [facility]2020-06-15 06:08:00 Test Item Value Reference Range Interpretation Comments Lymph BF (test code = Lymph BF) 4 [facility]2020-06-15 06:08:00 Test Item Value Reference Range Interpretation Comments Macrophage BF (test code = Macrophage 54 BF) [facility]2020-06-15 06:08:00 Test Item Value Reference Range Interpretation Comments Eos BF (test code = Eos BF) 3 [facility]2020-06-15 06:08:00 Test Item Value Reference Range Interpretation Comments Meso BF (test code = Meso BF) 2 [facility]2020-06-15 06:08:00 Test Item Value Reference Range Interpretation Comments Clarity BF (test code = Bloody *ABN*(03/23/20 Clarity BF) 1:08 AM) [facility]2020-06-15 06:08:00 Test Item Value Reference Range Interpretation Comments Color BF (test code = Red *ABN*(03/23/20 1:08 Color BF) AM) [facility]2020-06-15 06:08:00 Test Item Value Reference Range Interpretation Comments Supernat BF (test code = Yellow *ABN*(03/23/20 Supernat BF) 1:08 AM) [facility] [id number] 06:08:00 Test Item Value Reference Range Interpretation Comments CellCnt BF Type (test Periton (03/23/20 1:08 code = CellCnt BF Type) AM) [facility] HospitalCHEM [id number] 06:08:00 Test Item Value Reference Range Interpretation Comments Glucose Lvl (test code = Glucose Lvl) 98 70-99 [facility] [id number] 06:08:00 Test Item Value Reference Range Interpretation Comments BUN (test code = BUN) 81 7-22 [facility] [id number] 06:08:00 Test Item Value Reference Range Interpretation Comments Creatinine Lvl (test code = Creatinine 14.40 0.50-1.40 Lvl) [facility] [id number] 06:08:00 Test Item Value Reference Range Interpretation Comments Sodium Lvl (test code = Sodium Lvl) 129 135-145 [facility] [id number] 06:08:00 Test Item Value Reference Range Interpretation Comments Potassium Lvl (test code = Potassium 4.8 3.5-5.1 Lvl) [facility] [id number] 06:08:00 Test Item Value Reference Range Interpretation Comments Chloride Lvl (test code = Chloride Lvl) 90 95-109 [facility] [id number] 06:08:00 Test Item Value Reference Range Interpretation Comments CO2 (test code = CO2) 27 24-32 [facility] [id number] 06:08:00 Test Item Value Reference Range Interpretation Comments Calcium Lvl (test code = Calcium Lvl) 8.7 8.5-10.5 [facility] [id number] 06:08:00 Test Item Value Reference Range Interpretation Comments Total Protein (test code = Total 5.7 6.4-8.4 Protein) [facility] [id number] 06:08:00 Test Item Value Reference Range Interpretation Comments Albumin Lvl (test code = Albumin Lvl) 2.5 3.5-5.0 [facility] [id number] 06:08:00 Test Item Value Reference Range Interpretation Comments ALT (test code = ALT) 32 See_Comment [Auto mated message] The system which ge nerated this result transmit emerson reference range : <=65. The reference range was not used to interpr et this result as erinn l/abnormal. [facility] [employer] [id number] 06:08:00 Test Item Value Reference Range Interpretation Comments AST (test code = AST) 36 See_Comment [Auto mated message] The system which ge nerated this result transmit emerson reference range : <=37. The reference range was not used to interpr et this result as erinn l/abnormal. [facility] [employer] [id number] 06:08:00 Test Item Value Reference Range Interpretation Comments Alk Phos (test code = Alk Phos) 110 39-[address] [facility] [employer] [id number] 06:08:00 Test Item Value Reference Range Interpretation Comments Bili Total (test code = Bili Total) 0.5 0.2-1.3 [facility] [id number] 06:08:00 Test Item Value Reference Range Interpretation Comments AGAP (test code = AGAP) 16.8 10.0-20.0 [facility] [id number] 06:08:00 Test Item Value Reference Range Interpretation Comments B/C Ratio (test code = B/C Ratio) 6 1 6-25 [facility] [id number] 06:08:00 Test Item Value Reference Range Interpretation Comments Globulin (test code = Globulin) 3.2 2.7-4.2 [facility] [id number] 06:08:00 Test Item Value Reference Range Interpretation Comments A/G Ratio (test code = A/G Ratio) 0.8 1 0.7-1.6 [facility] [id number] 06:08:00 Test Item Value Reference Range Interpretation Comments eGFR (test code = eGFR) [address] [facility] [employer] [id number] 06:08:00 Test Item Value Reference Range Interpretation Comments Lactic Acid Lvl (test code = Lactic 0.6 0.5-2.2 Acid Lvl) [facility]HcyukfkNOMEXQWNXL2205-67-95 06:08:00 Test Item Value Reference Range Interpretation Comments WBC (test code = WBC) 11.5 3.7-10.4 [facility] HospitalPzdpoykVIBFDOKNAP0763-07-47 06:08:00 Test Item Value Reference Range Interpretation Comments RBC (test code = RBC) 2.12 4.70-6.10 [facility]TfkfcaqCVZURQVOBE4407-61-82 06:08:00 Test Item Value Reference Range Interpretation Comments Hgb (test code = Hgb) 6.1 14.0-18.0 [place] 799140-06-15 06:08:00 Test Item Value Reference Range Interpretation Comments Hct (test code = Hct) 18.4 42.0-54.0 [facility] CentralHoqumhqSVTOUTAUJP5038-33-73 06:08:00 Test Item Value Reference Range Interpretation Comments MCV (test code = MCV) 86.5 80.0-94.0 [facility] CentralErleuejALACUHVPKX3995-10-12 06:08:00 Test Item Value Reference Range Interpretation Comments MCH (test code = MCH) 28.6 pg 27.0-31.0 [facility] CentralGlimzmhBLPJXOHVLX4351-56-35 06:08:00 Test Item Value Reference Range Interpretation Comments MCHC (test code = MCHC) 33.1 32.0-36.0 [facility] CentralDlmlkovDOKXACKOIM9663-33-37 06:08:00 Test Item Value Reference Range Interpretation Comments RDW (test code = RDW) 15.9 11.5-14.5 [facility] CentralIkdzwtwBLXTQMWEVG5129-78-50 06:08:00 Test Item Value Reference Range Interpretation Comments Platelet (test code = Platelet) 316 133-450 [facility] CentralLizqlswIBUPLNIZDQ6952-56-46 06:08:00 Test Item Value Reference Range Interpretation Comments MPV (test code = MPV) 6.8 7.4-10.4 [facility] CentralZpeunxfYLDCGRPXDO2009-43-79 06:08:00 Test Item Value Reference Range Interpretation Comments PT (test code = PT) 13.9 s 12.0-14.7 [facility] CentralNwlnbfjUOGDAMHAYE9176-65-57 06:08:00 Test Item Value Reference Range Interpretation Comments INR (test code = INR) 1.07 1 0.85-1.17 [facility] CentralNusqnlfNQIKJJPAPJ2815-28-80 06:08:00 Test Item Value Reference Range Interpretation Comments RBC Morph (test code = Normal (03/23/20 1:08 RBC Morph) AM) [facility] CentralGgcbawzYMCUZMPHCF3343-39-44 06:08:00 Test Item Value Reference Range Interpretation Comments Plt Morph (test code = Normal (03/23/20 1:08 Plt Morph) AM) [facility] CentralRezuibtTGDKKPQMBL3306-31-01 06:08:00 Test Item Value Reference Range Interpretation Comments Segs (test code = Segs) 80.9 45.0-75.0 [place] 799140-06-15 06:08:00 Test Item Value Reference Range Interpretation Comments Lymphocytes (test code = Lymphocytes) 9.1 20.0-40.0 [place] 799140-06-15 06:08:00 Test Item Value Reference Range Interpretation Comments Monocytes (test code = Monocytes) 7.3 2.0-12.0 [facility] CentralIyuqzzhDTKMWALSCQ8285-38-60 06:08:00 Test Item Value Reference Range Interpretation Comments Eosinophils (test code = 2.0 See_Comment [A utomated message] The Eosinophils) system which ge nerated this result tra nsmitted reference range : <=4.0. The reference r yared was not used to int erpret this result as normal/abnormal . [facility] CentralLgjtdsfHCHTAEHUMO9678-40-26 06:08:00 Test Item Value Reference Range Interpretation Comments Basophils (test code = 0.7 See_Comment [Aut omated message] The Basophils) system which ge nerated this result tra nsmitted reference range : <=1.0. The reference r yared was not used to int erpret this result as normal/abnormal . [facility] CentralCiuregwSLPSYJQGGD0304-67-49 06:08:00 Test Item Value Reference Range Interpretation Comments Neutrophils # (test code = Neutrophils 9.3 1.5-8.1 #) [facility] CentralKrgzfirQXAHHNVGJV3561-30-65 06:08:00 Test Item Value Reference Range Interpretation Comments Lymphocytes # (test code = Lymphocytes 1.0 1.0-5.5 #) [place] 799140-06-15 06:08:00 Test Item Value Reference Range Interpretation Comments Monocytes # (test code 0.8 See_Comment [Aut omated message] The = Monocytes #) system which generated this result tra nsmitted reference range : <=0.8. The reference r yared was not used to int erpret this result as normal/abnormal . [facility] CentralVdaxxqfFZVIUESHTK6594-85-40 06:08:00 Test Item Value Reference Range Interpretation Comments Eosinophils # (test code 0.2 See_Comment [A utomated message] The = Eosinophils #) system whic h generated this result tra nsmitted reference range : <=0.5. The reference r yared was not used to int erpret this result as normal/abnormal . [facility] CentralBamjdkxRAEDZNEOXE3941-82-82 06:08:00 Test Item Value Reference Range Interpretation Comments Basophils # (test code 0.1 See_Comment [Aut omated message] The = Basophils #) system which generated this result tra nsmitted reference range : <=0.2. The reference r yared was not used to int erpret this result as normal/abnormal . [facility] CentralUirfowuJEDGOMVDGV6001-31-67 06:08:00 Test Item Value Reference Range Interpretation Comments Anisocyte (test code = 2+ *ABN*(03/23/20 Anisocyte) 1:08 AM) [facility] CentralIzrxtjrWZRAMHYKQU3567-38-87 06:08:00 Test Item Value Reference Range Interpretation Comments Macrocyte (test code = 1+ *ABN*(03/23/20 Macrocyte) 1:08 AM) [facility] CentralLxvqoqhNMZYZCVKKL0287-82-50 06:08:00 Test Item Value Reference Range Interpretation Comments Microcyte (test code = 1+ *ABN*(03/23/20 Microcyte) 1:08 AM) [facility] CentralEwtgadjASSKUEGQXU1110-19-32 06:08:00 Test Item Value Reference Range Interpretation Comments Spherocyte (test code = Rare *ABN*(03/23/20 Spherocyte) 1:08 AM) [facility] [id number] 21:27:00 Test Item Value Reference Range Interpretation Comments Glucose Lvl (test code = Glucose Lvl) 85 70-99 [facility] [id number] 21:27:00 Test Item Value Reference Range Interpretation Comments BUN (test code = BUN) 58 7-22 [facility] [id number] 21:27:00 Test Item Value Reference Range Interpretation Comments Creatinine Lvl (test code = Creatinine 12.00 0.50-1.40 Lvl) [facility]2020-04-27 21:27:00 Test Item Value Reference Range Interpretation Comments Sodium Lvl (test code = Sodium Lvl) 129 135-145 [facility] [id number] 21:27:00 Test Item Value Reference Range Interpretation Comments Potassium Lvl (test code = Potassium 4.2 3.5-5.1 Lvl) [facility] [employer] [id number] 21:27:00 Test Item Value Reference Range Interpretation Comments Chloride Lvl (test code = Chloride Lvl) 92 95-[address] [facility] [employer] [id number] 21:27:00 Test Item Value Reference Range Interpretation Comments CO2 (test code = CO2) 26 24-[address] [facility] [employer] [id number] 21:27:00 Test Item Value Reference Range Interpretation Comments Calcium Lvl (test code = Calcium Lvl) 8.3 8.5-10.[address] [facility] [employer] [id number] 21:27:00 Test Item Value Reference Range Interpretation Comments Total Protein (test code = Total 5.5 6.4-8.4 Protein) [facility] [employer] [id number] 21:27:00 Test Item Value Reference Range Interpretation Comments Albumin Lvl (test code = Albumin Lvl) 2.4 3.5-5.[address] [facility] [employer] [id number] 21:27:00 Test Item Value Reference Range Interpretation Comments ALT (test code = ALT) 18 See_Comment [Auto mated message] The system which ge nerated this result transmit emerson reference range : <=65. The reference range was not used to interpr et this result as erinn l/abnormal. [facility] [employer] [id number] 21:27:00 Test Item Value Reference Range Interpretation Comments AST (test code = AST) 20 See_Comment [Auto mated message] The system which ge nerated this result transmit emerson reference range : <=37. The reference range was not used to interpr et this result as erinn l/abnormal. [facility] [employer] [id number] 21:27:00 Test Item Value Reference Range Interpretation Comments Alk Phos (test code = Alk Phos) 76 39-[address] [facility] [employer] [id number] 21:27:00 Test Item Value Reference Range Interpretation Comments Bili Total (test code = Bili Total) 0.3 0.2-1.[address] [facility] [employer] [id number] 21:27:00 Test Item Value Reference Range Interpretation Comments AGAP (test code = AGAP) 15.2 10.0-20.0 [facility] [id number] 21:27:00 Test Item Value Reference Range Interpretation Comments B/C Ratio (test code = B/C Ratio) 5 1 6-25 [facility] [id number] 21:27:00 Test Item Value Reference Range Interpretation Comments Globulin (test code = Globulin) 3.1 2.7-4.2 [facility] [id number] 21:27:00 Test Item Value Reference Range Interpretation Comments A/G Ratio (test code = A/G Ratio) 0.8 1 0.7-1.6 [facility] [id number] 21:27:00 Test Item Value Reference Range Interpretation Comments eGFR (test code = eGFR) 4 [facility] HospitalQgjeodjHWOCVAVGIH6102-59-20 21:27:00 Test Item Value Reference Range Interpretation Comments WBC (test code = WBC) 8.7 3.7-10.4 [facility]CxzxelzVCNFBENYXF4787-84-91 21:27:00 Test Item Value Reference Range Interpretation Comments RBC (test code = RBC) 2.94 4.70-6.10 [facility] HospitalZgflsfwXFKFDUFEXM7637-17-72 21:27:00 Test Item Value Reference Range Interpretation Comments Hgb (test code = Hgb) 8.4 14.0-18.0 [facility] HospitalIzpucvrISVLGIPOZQ4164-81-03 21:27:00 Test Item Value Reference Range Interpretation Comments Hct (test code = Hct) 25.0 42.0-54.0 [facility] HospitalLhkicqiDZMUDATYTP3900-52-25 21:27:00 Test Item Value Reference Range Interpretation Comments MCV (test code = MCV) 84.9 80.0-94.0 [facility] HospitalQogmqjrKJBNNTJPKG1256-94-06 21:27:00 Test Item Value Reference Range Interpretation Comments MCH (test code = MCH) 28.7 pg 27.0-31.0 [facility] HospitalGllnogfZHRVGVXJQZ5047-30-23 21:27:00 Test Item Value Reference Range Interpretation Comments MCHC (test code = MCHC) 33.8 32.0-36.0 [facility] HospitalVzbdyhiYCPPDATMCY6274-76-61 21:27:00 Test Item Value Reference Range Interpretation Comments RDW (test code = RDW) 14.4 11.5-14.5 [facility] HospitalQlfbbfeUFPASSJAFP2924-37-14 21:27:00 Test Item Value Reference Range Interpretation Comments Platelet (test code = Platelet) 150 133-450 [place] 799140-04-27 21:27:00 Test Item Value Reference Range Interpretation Comments MPV (test code = MPV) 7.6 7.4-10.4 [place] [address]-04-27 21:27:00 Test Item Value Reference Range Interpretation Comments Neutrophils # (test code = Neutrophils 7.7 1.5-8.1 #) [place] 799140-04-27 21:27:00 Test Item Value Reference Range Interpretation Comments Lymphocytes # (test code = Lymphocytes 0.4 1.0-5.5 #) [place] 799140-04-27 21:27:00 Test Item Value Reference Range Interpretation Comments Monocytes # (test code 0.3 See_Comment [Aut omated message] The = Monocytes #) system which generated this result tra nsmitted reference range : <=0.8. The reference r yared was not used to int erpret this result as normal/abnormal . [facility] CentralAdhlyjlECATNXISRM4062-03-19 21:27:00 Test Item Value Reference Range Interpretation Comments Eosinophils # (test code 0.2 See_Comment [A utomated message] The = Eosinophils #) system whic h generated this result tra nsmitted reference range : <=0.5. The reference r yared was not used to int erpret this result as normal/abnormal . [facility] CentralHapeqfwISHUSUWOGT1597-57-15 21:27:00 Test Item Value Reference Range Interpretation Comments Segs (test code = Segs) 86.0 45.0-75.0 [place] 799140-04-27 21:27:00 Test Item Value Reference Range Interpretation Comments Bands (test code = 3.0 See_Comment [Automat ed message] The Bands) system which ge nerated this result transmit emerson reference range : <=11.0. The reference r yared was not used to interpr et this result as erinn l/abnormal. [facility] CentralUffcvnaGEOLBQZGGA3425-06-17 21:27:00 Test Item Value Reference Range Interpretation Comments Lymphocytes (test code = Lymphocytes) 3.0 20.0-40.0 [place] 799140-04-27 21:27:00 Test Item Value Reference Range Interpretation Comments Monocytes (test code = Monocytes) 4.0 2.0-12.0 [place] 799140-04-27 21:27:00 Test Item Value Reference Range Interpretation Comments Eosinophils (test code = 2.0 See_Comment [A utomated message] The Eosinophils) system which ge nerated this result tra nsmitted reference range : <=4.0. The reference r yared was not used to int erpret this result as normal/abnormal . [place] 799140-04-27 21:27:00 Test Item Value Reference Range Interpretation Comments Atypical Lymphs (test code = Atypical 2.0 Lymphs) [place] [address]-04-27 21:27:00 Test Item Value Reference Range Interpretation Comments RBC Morph (test code = Normal (02/03/20 4:27 RBC Morph) PM) [place] [address]-04-27 21:27:00 Test Item Value Reference Range Interpretation Comments Plt Morph (test code = Normal (02/03/20 4:27 Plt Morph) PM) [place] [address]-04-27 21:27:00 Test Item Value Reference Range Interpretation Comments Anisocyte (test code = 1+ *ABN*(02/03/20 Anisocyte) 4:27 PM) [place] 065730-04-27 21:27:00 Test Item Value Reference Range Interpretation Comments Glucose Lvl (test code = Glucose Lvl) 85 70-99 [place] 065730-04-27 21:27:00 Test Item Value Reference Range Interpretation Comments BUN (test code = BUN) 58 7-22 [place] 065730-04-27 21:27:00 Test Item Value Reference Range Interpretation Comments Creatinine Lvl (test code = Creatinine 12.00 0.50-1.40 Lvl) [place] 065730-04-27 21:27:00 Test Item Value Reference Range Interpretation Comments Sodium Lvl (test code = Sodium Lvl) 129 135-145 [place] 065730-04-27 21:27:00 Test Item Value Reference Range Interpretation Comments Potassium Lvl (test code = Potassium 4.2 3.5-5.1 Lvl) [place] 065730-04-27 21:27:00 Test Item Value Reference Range Interpretation Comments Chloride Lvl (test code = Chloride Lvl) 92 95-[address] [facility] [employer] [id number] 21:27:00 Test Item Value Reference Range Interpretation Comments CO2 (test code = CO2) 26 24-[address] [facility] [employer] [id number] 21:27:00 Test Item Value Reference Range Interpretation Comments Calcium Lvl (test code = Calcium Lvl) 8.3 8.5-10.[address] [facility] [employer] [id number] 21:27:00 Test Item Value Reference Range Interpretation Comments Total Protein (test code = Total 5.5 6.4-8.4 Protein) [facility] [employer] [id number] 21:27:00 Test Item Value Reference Range Interpretation Comments Albumin Lvl (test code = Albumin Lvl) 2.4 3.5-5.[address] [facility] [employer] [id number] 21:27:00 Test Item Value Reference Range Interpretation Comments ALT (test code = ALT) 18 See_Comment [Auto mated message] The system which ge nerated this result transmit emerson reference range : <=65. The reference range was not used to interpr et this result as erinn l/abnormal. [facility] [employer] [id number] 21:27:00 Test Item Value Reference Range Interpretation Comments AST (test code = AST) 20 See_Comment [Auto mated message] The system which ge nerated this result transmit emerson reference range : <=37. The reference range was not used to interpr et this result as erinn l/abnormal. [facility] [employer] [id number] 21:27:00 Test Item Value Reference Range Interpretation Comments Alk Phos (test code = Alk Phos) 76 39-[address] [facility] [employer] [id number] 21:27:00 Test Item Value Reference Range Interpretation Comments Bili Total (test code = Bili Total) 0.3 0.2-1.[address] [facility] [employer] [id number] 21:27:00 Test Item Value Reference Range Interpretation Comments AGAP (test code = AGAP) 15.2 10.0-20.[address] [facility] [employer] [id number] 21:27:00 Test Item Value Reference Range Interpretation Comments B/C Ratio (test code = B/C Ratio) 5 1 6-[address] [facility] [employer] [id number] 21:27:00 Test Item Value Reference Range Interpretation Comments Globulin (test code = Globulin) 3.1 2.7-4.2 [facility] [id number] 21:27:00 Test Item Value Reference Range Interpretation Comments A/G Ratio (test code = A/G Ratio) 0.8 1 0.7-1.6 [facility] [id number] 21:27:00 Test Item Value Reference Range Interpretation Comments eGFR (test code = eGFR) 4 [facility] HospitalFtjxvraQVZNGTHNZW7309-75-01 21:27:00 Test Item Value Reference Range Interpretation Comments WBC (test code = WBC) 8.7 3.7-10.4 [facility] HospitalWrdmdstZMSYWDUHUY6044-43-27 21:27:00 Test Item Value Reference Range Interpretation Comments RBC (test code = RBC) 2.94 4.70-6.10 [facility] HospitalSddbdlwDPYDDSDLYY5127-23-72 21:27:00 Test Item Value Reference Range Interpretation Comments Hgb (test code = Hgb) 8.4 14.0-18.0 [facility] HospitalGiiztfvLBYYWTERBB6010-88-80 21:27:00 Test Item Value Reference Range Interpretation Comments Hct (test code = Hct) 25.0 42.0-54.0 [facility] HospitalKmladcwUMOYETBFZZ2174-56-64 21:27:00 Test Item Value Reference Range Interpretation Comments MCV (test code = MCV) 84.9 80.0-94.0 [facility] HospitalXyieabvPLZFMHKVPO5624-56-57 21:27:00 Test Item Value Reference Range Interpretation Comments MCH (test code = MCH) 28.7 pg 27.0-31.0 [facility] HospitalIgcshncTQVBKHSHWD8187-46-49 21:27:00 Test Item Value Reference Range Interpretation Comments MCHC (test code = MCHC) 33.8 32.0-36.0 [facility] HospitalWrklwigEPAVYXPHES1736-36-50 21:27:00 Test Item Value Reference Range Interpretation Comments RDW (test code = RDW) 14.4 11.5-14.5 [facility] HospitalKxkagmgUNEGVVJFKL3996-81-92 21:27:00 Test Item Value Reference Range Interpretation Comments Platelet (test code = Platelet) 150 133-450 [facility] HospitalNxsezsmTNCWXZYFTI6419-62-49 21:27:00 Test Item Value Reference Range Interpretation Comments MPV (test code = MPV) 7.6 7.4-10.4 [facility] CentralDhvdzonNPWSCFMZKE5396-77-96 21:27:00 Test Item Value Reference Range Interpretation Comments Neutrophils # (test code = Neutrophils 7.7 1.5-8.1 #) [facility] CentralValrlqhCPWUHWVABA5525-17-86 21:27:00 Test Item Value Reference Range Interpretation Comments Lymphocytes # (test code = Lymphocytes 0.4 1.0-5.5 #) [facility] CentralXmygcuuZQECXUEGIM8418-81-53 21:27:00 Test Item Value Reference Range Interpretation Comments Monocytes # (test code 0.3 See_Comment [Aut omated message] The = Monocytes #) system which generated this result tra nsmitted reference range : <=0.8. The reference r yared was not used to int erpret this result as normal/abnormal . [facility] CentralKlpvcwpDIRDNZNCNT4009-99-68 21:27:00 Test Item Value Reference Range Interpretation Comments Eosinophils # (test code 0.2 See_Comment [A utomated message] The = Eosinophils #) system whic h generated this result tra nsmitted reference range : <=0.5. The reference r yared was not used to int erpret this result as normal/abnormal . [facility] CentralZysnyhvWMXOWCBBHK5854-18-38 21:27:00 Test Item Value Reference Range Interpretation Comments Segs (test code = Segs) 86.0 45.0-75.0 [facility] CentralBmgcjtmVQUYCDTANM9860-05-37 21:27:00 Test Item Value Reference Range Interpretation Comments Bands (test code = 3.0 See_Comment [Automat ed message] The Bands) system which ge nerated this result transmit emerson reference range : <=11.0. The reference r yared was not used to interpr et this result as erinn l/abnormal. [facility] CentralUcdhmffZKWREROLFN6410-58-79 21:27:00 Test Item Value Reference Range Interpretation Comments Lymphocytes (test code = Lymphocytes) 3.0 20.0-40.0 [facility] CentralYiuhvobWVRBWNBGLR9814-54-90 21:27:00 Test Item Value Reference Range Interpretation Comments Monocytes (test code = Monocytes) 4.0 2.0-12.0 [facility] CentralCozbuatSOHXKBJCLR6272-69-54 21:27:00 Test Item Value Reference Range Interpretation Comments Eosinophils (test code = 2.0 See_Comment [A utomated message] The Eosinophils) system which ge nerated this result tra nsmitted reference range : <=4.0. The reference r yared was not used to int erpret this result as normal/abnormal . [facility] CentralUgadzgaXGSVNXMIZY2629-13-21 21:27:00 Test Item Value Reference Range Interpretation Comments Atypical Lymphs (test code = Atypical 2.0 Lymphs) [facility] CentralGohsrsjMSILSHHRHY1982-77-18 21:27:00 Test Item Value Reference Range Interpretation Comments RBC Morph (test code = Normal (02/03/20 4:27 RBC Morph) PM) [place] [address]-04-27 21:27:00 Test Item Value Reference Range Interpretation Comments Plt Morph (test code = Normal (02/03/20 4:27 Plt Morph) PM) [place] 799140-04-27 21:27:00 Test Item Value Reference Range Interpretation Comments Anisocyte (test code = 1+ *ABN*(02/03/20 Anisocyte) 4:27 PM) [facility]2020-04-27 21:27:00 Test Item Value Reference Range Interpretation Comments Glucose Lvl (test code = Glucose Lvl) 85 70-99 [facility]2020-04-27 21:27:00 Test Item Value Reference Range Interpretation Comments BUN (test code = BUN) 58 7-22 [place] 065730-04-27 21:27:00 Test Item Value Reference Range Interpretation Comments Creatinine Lvl (test code = Creatinine 12.00 0.50-1.40 Lvl) [facility]2020-04-27 21:27:00 Test Item Value Reference Range Interpretation Comments Sodium Lvl (test code = Sodium Lvl) 129 135-145 [place] 065730-04-27 21:27:00 Test Item Value Reference Range Interpretation Comments Potassium Lvl (test code = Potassium 4.2 3.5-5.1 Lvl) [place] 065730-04-27 21:27:00 Test Item Value Reference Range Interpretation Comments Chloride Lvl (test code = Chloride Lvl) 92 95-109 [place] 065730-04-27 21:27:00 Test Item Value Reference Range Interpretation Comments CO2 (test code = CO2) 26 24-32 [place] 065730-04-27 21:27:00 Test Item Value Reference Range Interpretation Comments Calcium Lvl (test code = Calcium Lvl) 8.3 8.5-10.[address] [facility] [employer] [id number] 21:27:00 Test Item Value Reference Range Interpretation Comments Total Protein (test code = Total 5.5 6.4-8.4 Protein) [facility] [id number] 21:27:00 Test Item Value Reference Range Interpretation Comments Albumin Lvl (test code = Albumin Lvl) 2.4 3.5-5.[address] [facility] [employer] [id number] 21:27:00 Test Item Value Reference Range Interpretation Comments ALT (test code = ALT) 18 See_Comment [Auto mated message] The system which ge nerated this result transmit emerson reference range : <=65. The reference range was not used to interpr et this result as erinn l/abnormal. [facility] [employer] [id number] 21:27:00 Test Item Value Reference Range Interpretation Comments AST (test code = AST) 20 See_Comment [Auto mated message] The system which ge nerated this result transmit emerson reference range : <=37. The reference range was not used to interpr et this result as erinn l/abnormal. [facility] [employer] [id number] 21:27:00 Test Item Value Reference Range Interpretation Comments Alk Phos (test code = Alk Phos) 76 39-[address] [facility] [employer] [id number] 21:27:00 Test Item Value Reference Range Interpretation Comments Bili Total (test code = Bili Total) 0.3 0.2-1.[address] [facility] [employer] [id number] 21:27:00 Test Item Value Reference Range Interpretation Comments AGAP (test code = AGAP) 15.2 10.0-20.[address] [facility] [employer] [id number] 21:27:00 Test Item Value Reference Range Interpretation Comments B/C Ratio (test code = B/C Ratio) 5 1 6-[address] [facility] [employer] [id number] 21:27:00 Test Item Value Reference Range Interpretation Comments Globulin (test code = Globulin) 3.1 2.7-4.[address] [facility] [employer] [id number] 21:27:00 Test Item Value Reference Range Interpretation Comments A/G Ratio (test code = A/G Ratio) 0.8 1 0.7-1.6 [facility] [id number] 21:27:00 Test Item Value Reference Range Interpretation Comments eGFR (test code = eGFR) 4 [facility] HospitalQmxhoycBDZUQQDULV2653-01-82 21:27:00 Test Item Value Reference Range Interpretation Comments WBC (test code = WBC) 8.7 3.7-10.4 [facility]ZmtzfpaKLWGCMRMHI9331-73-01 21:27:00 Test Item Value Reference Range Interpretation Comments RBC (test code = RBC) 2.94 4.70-6.10 [facility] HospitalJacczbhDZKIYBGGEE8684-70-37 21:27:00 Test Item Value Reference Range Interpretation Comments Hgb (test code = Hgb) 8.4 14.0-18.0 [facility] HospitalAnqdycaRYBJAJZISV6273-83-72 21:27:00 Test Item Value Reference Range Interpretation Comments Hct (test code = Hct) 25.0 42.0-54.0 [facility] HospitalAizlcpsQMWCNFKSJW6939-76-66 21:27:00 Test Item Value Reference Range Interpretation Comments MCV (test code = MCV) 84.9 80.0-94.0 [facility] HospitalCkrbpmnTVWELXDBZB3214-73-79 21:27:00 Test Item Value Reference Range Interpretation Comments MCH (test code = MCH) 28.7 pg 27.0-31.0 [facility] HospitalIvzrhwaACGRUNLRDA1023-24-11 21:27:00 Test Item Value Reference Range Interpretation Comments MCHC (test code = MCHC) 33.8 32.0-36.0 [facility] HospitalJulklorIPNMYERILR7162-98-33 21:27:00 Test Item Value Reference Range Interpretation Comments RDW (test code = RDW) 14.4 11.5-14.5 [facility] HospitalFhwcoqhOJHTVFJRSC0378-69-94 21:27:00 Test Item Value Reference Range Interpretation Comments Platelet (test code = Platelet) 150 133-450 [facility] HospitalGrmzlhnXKOKJINCYR5078-34-43 21:27:00 Test Item Value Reference Range Interpretation Comments MPV (test code = MPV) 7.6 7.4-10.4 [facility] HospitalZwefyxdQRTXPZNHUZ4208-00-47 21:27:00 Test Item Value Reference Range Interpretation Comments Neutrophils # (test code = Neutrophils 7.7 1.5-8.1 #) [facility] CentralCjpztwjQEIJHZGJVD0289-21-65 21:27:00 Test Item Value Reference Range Interpretation Comments Lymphocytes # (test code = Lymphocytes 0.4 1.0-5.5 #) [facility] CentralJfvgjodTYHTQCCXUG4422-22-86 21:27:00 Test Item Value Reference Range Interpretation Comments Monocytes # (test code 0.3 See_Comment [Aut omated message] The = Monocytes #) system which generated this result tra nsmitted reference range : <=0.8. The reference r yared was not used to int erpret this result as normal/abnormal . [facility] CentralYvyvvyeJZHBGEXFTD0806-82-96 21:27:00 Test Item Value Reference Range Interpretation Comments Eosinophils # (test code 0.2 See_Comment [A utomated message] The = Eosinophils #) system whic h generated this result tra nsmitted reference range : <=0.5. The reference r yared was not used to int erpret this result as normal/abnormal . [facility] CentralFclppheZDXLDZEAWT1555-61-28 21:27:00 Test Item Value Reference Range Interpretation Comments Segs (test code = Segs) 86.0 45.0-75.0 [facility] CentralGqhlascMLMKSJYDAQ0983-99-02 21:27:00 Test Item Value Reference Range Interpretation Comments Bands (test code = 3.0 See_Comment [Automat ed message] The Bands) system which ge nerated this result transmit emerson reference range : <=11.0. The reference r yared was not used to interpr et this result as erinn l/abnormal. [facility] CentralLgvcwbgOROMFPSPEA8214-69-76 21:27:00 Test Item Value Reference Range Interpretation Comments Lymphocytes (test code = Lymphocytes) 3.0 20.0-40.0 [facility] CentralZhuymhpNVORMSUDZB9719-07-11 21:27:00 Test Item Value Reference Range Interpretation Comments Monocytes (test code = Monocytes) 4.0 2.0-12.0 [facility] CentralXsovpugMPTJJJSZDN0402-22-46 21:27:00 Test Item Value Reference Range Interpretation Comments Eosinophils (test code = 2.0 See_Comment [A utomated message] The Eosinophils) system which ge nerated this result tra nsmitted reference range : <=4.0. The reference r yared was not used to int erpret this result as normal/abnormal . [facility] CentralTorrfzeEZVIFXWELA2229-72-16 21:27:00 Test Item Value Reference Range Interpretation Comments Atypical Lymphs (test code = Atypical 2.0 Lymphs) [facility] CentralStjzkinYWYSKBAURY9658-03-00 21:27:00 Test Item Value Reference Range Interpretation Comments RBC Morph (test code = Normal (02/03/20 4:27 RBC Morph) PM) [facility] CentralRhonbcsRIUJPUNUML1024-64-56 21:27:00 Test Item Value Reference Range Interpretation Comments Plt Morph (test code = Normal (02/03/20 4:27 Plt Morph) PM) [facility] CentralWreszuaPPIMEYLDXC3025-15-57 21:27:00 Test Item Value Reference Range Interpretation Comments Anisocyte (test code = 1+ *ABN*(02/03/20 Anisocyte) 4:27 PM) [facility]KzudazmJMPBVFQQIJ3711-70-67 21:14:00 Test Item Value Reference Range Interpretation Comments Coronavirus (COVID-19) Not Detected (02/03/20 JUVENCIO (test code = 4:14 PM) Coronavirus (COVID-19) JUVENCIO) [facility] CenterJbjlmcuRDZBCXGLOF6565-74-84 21:14:00 Test Item Value Reference Range Interpretation Comments Coronavirus (COVID-19) Not Detected (02/03/20 JUVENCIO (test code = 4:14 PM) Coronavirus (COVID-19) JUVENCIO) [facility] CenterFqhdeeaMRASDOBNVM0069-30-18 21:14:00 Test Item Value Reference Range Interpretation Comments Coronavirus (COVID-19) Not Detected (02/03/20 JUVENCIO (test code = 4:14 PM) Coronavirus (COVID-19) JUVENCIO) [facility]2020-01-27 18:30:00 Test Item Value Reference Range Interpretation Comments Color BF (test code = Colorless (11/04/19 12:30 Color BF) PM) [facility]2020-01-27 18:30:00 Test Item Value Reference Range Interpretation Comments Clarity BF (test code = Clear (11/04/19 12:30 Clarity BF) PM) [facility]2020-01-27 18:30:00 Test Item Value Reference Range Interpretation Comments Nucleated Cells BF (test code = 11 Nucleated Cells BF) [facility]2020-01-27 18:30:00 Test Item Value Reference Range Interpretation Comments RBC BF (test code = RBC BF) 11 [facility]2020-01-27 18:30:00 Test Item Value Reference Range Interpretation Comments Neutrophils BF (test code = Neutrophils 11 BF) [facility]2020-01-27 18:30:00 Test Item Value Reference Range Interpretation Comments Lymph BF (test code = Lymph BF) 56 [facility]2020-01-27 18:30:00 Test Item Value Reference Range Interpretation Comments Macrophage BF (test code = Macrophage 33 BF) [facility]2020-01-27 18:30:00 Test Item Value Reference Range Interpretation Comments CellCnt BF Type (test Periton (11/04/19 12:30 code = CellCnt BF Type) PM) [facility] HospitalG[facility] Stain [id number] 18:30:00 Test Item Value Reference Range Interpretation Comments Gram Stain Report Rare WBC's No Organisms (test code = Gram Seen Stain Report) [facility] HospitalCulture: Aspirate/Body Fluid/Itubpw5637-98-44 18:30:00 Test Item Value Reference Range Interpretation Comments Culture: 48 Hour Report - No Aspirate/Body Growth, Holding Fluid/Tissue (test code = Culture: Aspirate/Body Fluid/Tissue) [facility]2020-01-27 18:30:00 Test Item Value Reference Range Interpretation Comments Color BF (test code = Colorless (11/04/19 12:30 Color BF) PM) [facility]2020-01-27 18:30:00 Test Item Value Reference Range Interpretation Comments Clarity BF (test code = Clear (11/04/19 12:30 Clarity BF) PM) [facility]2020-01-27 18:30:00 Test Item Value Reference Range Interpretation Comments Nucleated Cells BF (test code = 11 Nucleated Cells BF) [facility]2020-01-27 18:30:00 Test Item Value Reference Range Interpretation Comments RBC BF (test code = RBC BF) 11 [facility]2020-01-27 18:30:00 Test Item Value Reference Range Interpretation Comments Neutrophils BF (test code = Neutrophils 11 BF) [facility]2020-01-27 18:30:00 Test Item Value Reference Range Interpretation Comments Lymph BF (test code = Lymph BF) 56 [facility]2020-01-27 18:30:00 Test Item Value Reference Range Interpretation Comments Macrophage BF (test code = Macrophage 33 BF) [facility]2020-01-27 18:30:00 Test Item Value Reference Range Interpretation Comments CellCnt BF Type (test Periton (11/04/19 12:30 code = CellCnt BF Type) PM) [facility] HospitalG[facility] Stain Jcmlne1223-54-02 18:30:00 Test Item Value Reference Range Interpretation Comments Gram Stain Report Rare WBC's No Organisms (test code = Gram Seen Stain Report) [facility] Aspirate/Body Fluid/Kfrapg6536-46-03 18:30:00 Test Item Value Reference Range Interpretation Comments Culture: 48 Hour Report - No Aspirate/Body Growth, Holding Fluid/Tissue (test code = Culture: Aspirate/Body Fluid/Tissue) [facility]2020-01-27 18:30:00 Test Item Value Reference Range Interpretation Comments Color BF (test code = Colorless (11/04/19 12:30 Color BF) PM) [facility]2020-01-27 18:30:00 Test Item Value Reference Range Interpretation Comments Clarity BF (test code = Clear (11/04/19 12:30 Clarity BF) PM) [facility]2020-01-27 18:30:00 Test Item Value Reference Range Interpretation Comments Nucleated Cells BF (test code = 11 Nucleated Cells BF) [facility]2020-01-27 18:30:00 Test Item Value Reference Range Interpretation Comments RBC BF (test code = RBC BF) 11 [facility]2020-01-27 18:30:00 Test Item Value Reference Range Interpretation Comments Neutrophils BF (test code = Neutrophils 11 BF) [facility]2020-01-27 18:30:00 Test Item Value Reference Range Interpretation Comments Lymph BF (test code = Lymph BF) 56 [facility]2020-01-27 18:30:00 Test Item Value Reference Range Interpretation Comments Macrophage BF (test code = Macrophage 33 BF) [facility]2020-01-27 18:30:00 Test Item Value Reference Range Interpretation Comments CellCnt BF Type (test Periton (11/04/19 12:30 code = CellCnt BF Type) PM) [facility] Stain Jnjqsc0031-08-98 18:30:00 Test Item Value Reference Range Interpretation Comments Gram Stain Report Rare WBC's No Organisms (test code = Gram Seen Stain Report) [facility]irate/Body Fluid/Dwdetb5439-83-12 18:30:00 Test Item Value Reference Range Interpretation Comments Culture: 48 Hour Report - No Aspirate/Body Growth, Holding Fluid/Tissue (test code = Culture: Aspirate/Body Fluid/Tissue) [place] 065730-01-27 18:00:00 Test Item Value Reference Range Interpretation Comments Glucose Lvl (test code = Glucose Lvl) 125 70-99 [facility]2020-01-27 18:00:00 Test Item Value Reference Range Interpretation Comments BUN (test code = BUN) 40 7-22 [facility]2020-01-27 18:00:00 Test Item Value Reference Range Interpretation Comments Creatinine Lvl (test code = Creatinine 10.60 0.50-1.40 Lvl) [facility]2020-01-27 18:00:00 Test Item Value Reference Range Interpretation Comments Sodium Lvl (test code = Sodium Lvl) 141 135-145 [facility]2020-01-27 18:00:00 Test Item Value Reference Range Interpretation Comments Potassium Lvl (test code = Potassium 3.8 3.5-5.1 Lvl) [facility]2020-01-27 18:00:00 Test Item Value Reference Range Interpretation Comments Chloride Lvl (test code = Chloride Lvl) 101 95-109 [facility]2020-01-27 18:00:00 Test Item Value Reference Range Interpretation Comments CO2 (test code = CO2) 32 24-32 [facility]2020-01-27 18:00:00 Test Item Value Reference Range Interpretation Comments Calcium Lvl (test code = Calcium Lvl) 9.3 8.5-10.5 [facility]2020-01-27 18:00:00 Test Item Value Reference Range Interpretation Comments AGAP (test code = AGAP) 11.8 10.0-20.0 [facility]2020-01-27 18:00:00 Test Item Value Reference Range Interpretation Comments eGFR (test code = eGFR) 5 [place] 065730-01-27 18:00:00 Test Item Value Reference Range Interpretation Comments Glucose Lvl (test code = Glucose Lvl) 125 70-99 [place] 065730-01-27 18:00:00 Test Item Value Reference Range Interpretation Comments BUN (test code = BUN) 40 7-22 [facility]2020-01-27 18:00:00 Test Item Value Reference Range Interpretation Comments Creatinine Lvl (test code = Creatinine 10.60 0.50-1.40 Lvl) [facility]2020-01-27 18:00:00 Test Item Value Reference Range Interpretation Comments Sodium Lvl (test code = Sodium Lvl) 141 135-145 [facility]2020-01-27 18:00:00 Test Item Value Reference Range Interpretation Comments Potassium Lvl (test code = Potassium 3.8 3.5-5.1 Lvl) [facility]2020-01-27 18:00:00 Test Item Value Reference Range Interpretation Comments Chloride Lvl (test code = Chloride Lvl) 101 95-109 [facility]2020-01-27 18:00:00 Test Item Value Reference Range Interpretation Comments CO2 (test code = CO2) 32 24-32 [facility]2020-01-27 18:00:00 Test Item Value Reference Range Interpretation Comments Calcium Lvl (test code = Calcium Lvl) 9.3 8.5-10.5 [facility]2020-01-27 18:00:00 Test Item Value Reference Range Interpretation Comments AGAP (test code = AGAP) 11.8 10.0-20.0 [facility]2020-01-27 18:00:00 Test Item Value Reference Range Interpretation Comments eGFR (test code = eGFR) 5 [facility]2020-01-27 18:00:00 Test Item Value Reference Range Interpretation Comments Glucose Lvl (test code = Glucose Lvl) 125 70-99 [facility]2020-01-27 18:00:00 Test Item Value Reference Range Interpretation Comments BUN (test code = BUN) 40 7-22 [facility]2020-01-27 18:00:00 Test Item Value Reference Range Interpretation Comments Creatinine Lvl (test code = Creatinine 10.60 0.50-1.40 Lvl) [facility]2020-01-27 18:00:00 Test Item Value Reference Range Interpretation Comments Sodium Lvl (test code = Sodium Lvl) 141 135-145 [facility]2020-01-27 18:00:00 Test Item Value Reference Range Interpretation Comments Potassium Lvl (test code = Potassium 3.8 3.5-5.1 Lvl) [facility]2020-01-27 18:00:00 Test Item Value Reference Range Interpretation Comments Chloride Lvl (test code = Chloride Lvl) 101 95-109 [facility]2020-01-27 18:00:00 Test Item Value Reference Range Interpretation Comments CO2 (test code = CO2) 32 24-32 [facility]2020-01-27 18:00:00 Test Item Value Reference Range Interpretation Comments Calcium Lvl (test code = Calcium Lvl) 9.3 8.5-10.5 [facility]2020-01-27 18:00:00 Test Item Value Reference Range Interpretation Comments AGAP (test code = AGAP) 11.8 10.0-20.0 [facility]21[employer] QKTVA0901-39-01 18:00:00 Test Item Value Reference Range Interpretation Comments eGFR (test code = eGFR) 5 [facility]BqibcmfKDPBOBVEIL2252-11-45 18:08:00 Test Item Value Reference Range Interpretation Comments Vanco Lvl (test code = Vanco Lvl) 10.2 [facility] NorthwestZkewmhzNZNUCKOJUO3200-48-56 18:08:00 Test Item Value Reference Range Interpretation Comments Vanco Lvl (test code = Vanco Lvl) 10.2 [facility] NorthwestFuhgoxoCCIQSXHTZB9204-61-38 18:08:00 Test Item Value Reference Range Interpretation Comments Vanco Lvl (test code = Vanco Lvl) 10.2 [facility]2020-01-26 13:45:00 Test Item Value Reference Range Interpretation Comments Glucose Lvl (test code = Glucose Lvl) 163 70-99 [facility]2020-01-26 13:45:00 Test Item Value Reference Range Interpretation Comments BUN (test code = BUN) 35 7-22 [facility]2020-01-26 13:45:00 Test Item Value Reference Range Interpretation Comments Creatinine Lvl (test code = Creatinine 9.71 0.50-1.40 Lvl) [facility]2020-01-26 13:45:00 Test Item Value Reference Range Interpretation Comments Sodium Lvl (test code = Sodium Lvl) 139 135-145 [place] 065730-01-26 13:45:00 Test Item Value Reference Range Interpretation Comments Potassium Lvl (test code = Potassium 3.4 3.5-5.1 Lvl) [place] 065730-01-26 13:45:00 Test Item Value Reference Range Interpretation Comments Chloride Lvl (test code = Chloride Lvl) 102 95-109 [place] 065730-01-26 13:45:00 Test Item Value Reference Range Interpretation Comments CO2 (test code = CO2) 29 24-32 [place] 065730-01-26 13:45:00 Test Item Value Reference Range Interpretation Comments Calcium Lvl (test code = Calcium Lvl) 9.0 8.5-10.5 [place] 065730-01-26 13:45:00 Test Item Value Reference Range Interpretation Comments AGAP (test code = AGAP) 11.4 10.0-20.0 [place] 065730-01-26 13:45:00 Test Item Value Reference Range Interpretation Comments eGFR (test code = eGFR) 5 [place] 799140-01-26 13:45:00 Test Item Value Reference Range Interpretation Comments WBC (test code = WBC) 4.3 3.7-10.4 [place] [address]-01-26 13:45:00 Test Item Value Reference Range Interpretation Comments RBC (test code = RBC) 3.00 4.70-6.10 [place] [address]-01-26 13:45:00 Test Item Value Reference Range Interpretation Comments Hgb (test code = Hgb) 8.4 14.0-18.0 [place] [address]-01-26 13:45:00 Test Item Value Reference Range Interpretation Comments Hct (test code = Hct) 25.3 42.0-54.0 [place] [address]-01-26 13:45:00 Test Item Value Reference Range Interpretation Comments MCV (test code = MCV) 84.3 80.0-94.0 [place] [address]-01-26 13:45:00 Test Item Value Reference Range Interpretation Comments MCH (test code = MCH) 28.2 pg 27.0-31.0 [place] [address]-01-26 13:45:00 Test Item Value Reference Range Interpretation Comments MCHC (test code = MCHC) 33.4 32.0-36.0 [place] 799140-01-26 13:45:00 Test Item Value Reference Range Interpretation Comments RDW (test code = RDW) 14.5 11.5-14.5 [place] 799140-01-26 13:45:00 Test Item Value Reference Range Interpretation Comments Platelet (test code = Platelet) 217 133-450 [place] 799140-01-26 13:45:00 Test Item Value Reference Range Interpretation Comments MPV (test code = MPV) 6.5 7.4-10.4 [place] 799140-01-26 13:45:00 Test Item Value Reference Range Interpretation Comments Segs (test code = Segs) 66.4 45.0-75.0 [place] [address]-01-26 13:45:00 Test Item Value Reference Range Interpretation Comments Lymphocytes (test code = Lymphocytes) 19.6 20.0-40.0 [place] 799140-01-26 13:45:00 Test Item Value Reference Range Interpretation Comments Monocytes (test code = Monocytes) 9.3 2.0-12.0 [place] 799140-01-26 13:45:00 Test Item Value Reference Range Interpretation Comments Eosinophils (test code = 3.7 See_Comment [A utomated message] The Eosinophils) system which ge nerated this result tra nsmitted reference range : <=4.0. The reference r yared was not used to int erpret this result as normal/abnormal . [place] 799140-01-26 13:45:00 Test Item Value Reference Range Interpretation Comments Basophils (test code = 1.0 See_Comment [Aut omated message] The Basophils) system which ge nerated this result tra nsmitted reference range : <=1.0. The reference r yared was not used to int erpret this result as normal/abnormal . [place] 799140-01-26 13:45:00 Test Item Value Reference Range Interpretation Comments Neutrophils # (test code = Neutrophils 2.8 1.5-8.1 #) [place] 799140-01-26 13:45:00 Test Item Value Reference Range Interpretation Comments Lymphocytes # (test code = Lymphocytes 0.8 1.0-5.5 #) [place] 799140-01-26 13:45:00 Test Item Value Reference Range Interpretation Comments Monocytes # (test code 0.4 See_Comment [Aut omated message] The = Monocytes #) system which generated this result tra nsmitted reference range : <=0.8. The reference r yared was not used to int erpret this result as normal/abnormal . [place] 799140-01-26 13:45:00 Test Item Value Reference Range Interpretation Comments Eosinophils # (test code 0.2 See_Comment [A utomated message] The = Eosinophils #) system whic h generated this result tra nsmitted reference range : <=0.5. The reference r yared was not used to int erpret this result as normal/abnormal . [place] 065730-01-26 13:45:00 Test Item Value Reference Range Interpretation Comments Glucose Lvl (test code = Glucose Lvl) 163 70-99 [place] 065730-01-26 13:45:00 Test Item Value Reference Range Interpretation Comments BUN (test code = BUN) 35 7-22 [place] 065730-01-26 13:45:00 Test Item Value Reference Range Interpretation Comments Creatinine Lvl (test code = Creatinine 9.71 0.50-1.40 Lvl) [place] 065730-01-26 13:45:00 Test Item Value Reference Range Interpretation Comments Sodium Lvl (test code = Sodium Lvl) 139 135-145 [place] 92279-01-26 13:45:00 Test Item Value Reference Range Interpretation Comments Potassium Lvl (test code = Potassium 3.4 3.5-5.1 Lvl) [place] 065730-01-26 13:45:00 Test Item Value Reference Range Interpretation Comments Chloride Lvl (test code = Chloride Lvl) 102 95-109 [place] 065730-01-26 13:45:00 Test Item Value Reference Range Interpretation Comments CO2 (test code = CO2) 29 24-32 [place] 065730-01-26 13:45:00 Test Item Value Reference Range Interpretation Comments Calcium Lvl (test code = Calcium Lvl) 9.0 8.5-10.5 [place] 065730-01-26 13:45:00 Test Item Value Reference Range Interpretation Comments AGAP (test code = AGAP) 11.4 10.0-20.0 [facility]2020-01-26 13:45:00 Test Item Value Reference Range Interpretation Comments eGFR (test code = eGFR) 5 [facility]IE5425[facility]91-40 13:45:00 Test Item Value Reference Range Interpretation Comments WBC (test code = WBC) 4.3 3.7-10.4 [facility] HospitalZuqcukcVCUSHJHTYK4968-65-68 13:45:00 Test Item Value Reference Range Interpretation Comments RBC (test code = RBC) 3.00 4.70-6.10 [facility] HospitalYyxwvcoCSOKVGGJON4476-54-96 13:45:00 Test Item Value Reference Range Interpretation Comments Hgb (test code = Hgb) 8.4 14.0-18.0 [facility]xvlumvRHYEBUQUJC6945-01-46 13:45:00 Test Item Value Reference Range Interpretation Comments Hct (test code = Hct) 25.3 42.0-54.0 [facility] HospitalHqukaaiSZMWBHLUZI9356-50-14 13:45:00 Test Item Value Reference Range Interpretation Comments MCV (test code = MCV) 84.3 80.0-94.0 [facility] HospitalLecnxyoBKNMVCVNKY5051-99-22 13:45:00 Test Item Value Reference Range Interpretation Comments MCH (test code = MCH) 28.2 pg 27.0-31.0 [facility] CentralYlmimkdQWSCVHHEFH8761-37-68 13:45:00 Test Item Value Reference Range Interpretation Comments MCHC (test code = MCHC) 33.4 32.0-36.0 [facility] HospitalVtngczjDPHQNZNPZJ7817-07-59 13:45:00 Test Item Value Reference Range Interpretation Comments RDW (test code = RDW) 14.5 11.5-14.5 [facility] CentralExlgmfpAKDYRZXNLS2041-79-31 13:45:00 Test Item Value Reference Range Interpretation Comments Platelet (test code = Platelet) 217 133-450 [facility] CentralVbmtnprPMSTJRSIBA5044-58-30 13:45:00 Test Item Value Reference Range Interpretation Comments MPV (test code = MPV) 6.5 7.4-10.4 [facility] CentralVpuilpuJAALHSLHZH6188-31-77 13:45:00 Test Item Value Reference Range Interpretation Comments Segs (test code = Segs) 66.4 45.0-75.0 [place] 799140-01-26 13:45:00 Test Item Value Reference Range Interpretation Comments Lymphocytes (test code = Lymphocytes) 19.6 20.0-40.0 [place] 799140-01-26 13:45:00 Test Item Value Reference Range Interpretation Comments Monocytes (test code = Monocytes) 9.3 2.0-12.0 [place] 799140-01-26 13:45:00 Test Item Value Reference Range Interpretation Comments Eosinophils (test code = 3.7 See_Comment [A utomated message] The Eosinophils) system which ge nerated this result tra nsmitted reference range : <=4.0. The reference r yared was not used to int erpret this result as normal/abnormal . [place] 799140-01-26 13:45:00 Test Item Value Reference Range Interpretation Comments Basophils (test code = 1.0 See_Comment [Aut omated message] The Basophils) system which ge nerated this result tra nsmitted reference range : <=1.0. The reference r yared was not used to int erpret this result as normal/abnormal . [facility] CentralDsztbozMSTUURURIA2351-10-11 13:45:00 Test Item Value Reference Range Interpretation Comments Neutrophils # (test code = Neutrophils 2.8 1.5-8.1 #) [place] 799140-01-26 13:45:00 Test Item Value Reference Range Interpretation Comments Lymphocytes # (test code = Lymphocytes 0.8 1.0-5.5 #) [place] 799140-01-26 13:45:00 Test Item Value Reference Range Interpretation Comments Monocytes # (test code 0.4 See_Comment [Aut omated message] The = Monocytes #) system which generated this result tra nsmitted reference range : <=0.8. The reference r yared was not used to int erpret this result as normal/abnormal . [place] 12953-01-26 13:45:00 Test Item Value Reference Range Interpretation Comments Eosinophils # (test code 0.2 See_Comment [A utomated message] The = Eosinophils #) system whic h generated this result tra nsmitted reference range : <=0.5. The reference r yared was not used to int erpret this result as normal/abnormal . [facility]2020-01-26 13:45:00 Test Item Value Reference Range Interpretation Comments Glucose Lvl (test code = Glucose Lvl) 163 70-99 [place] 065730-01-26 13:45:00 Test Item Value Reference Range Interpretation Comments BUN (test code = BUN) 35 7-22 [place] 065730-01-26 13:45:00 Test Item Value Reference Range Interpretation Comments Creatinine Lvl (test code = Creatinine 9.71 0.50-1.40 Lvl) [place] 065730-01-26 13:45:00 Test Item Value Reference Range Interpretation Comments Sodium Lvl (test code = Sodium Lvl) 139 135-145 [place] 92279-01-26 13:45:00 Test Item Value Reference Range Interpretation Comments Potassium Lvl (test code = Potassium 3.4 3.5-5.1 Lvl) [place] 065730-01-26 13:45:00 Test Item Value Reference Range Interpretation Comments Chloride Lvl (test code = Chloride Lvl) 102 95-109 [place] 065730-01-26 13:45:00 Test Item Value Reference Range Interpretation Comments CO2 (test code = CO2) 29 24-32 [place] 065730-01-26 13:45:00 Test Item Value Reference Range Interpretation Comments Calcium Lvl (test code = Calcium Lvl) 9.0 8.5-10.5 [place] 065730-01-26 13:45:00 Test Item Value Reference Range Interpretation Comments AGAP (test code = AGAP) 11.4 10.0-20.0 [place] 065730-01-26 13:45:00 Test Item Value Reference Range Interpretation Comments eGFR (test code = eGFR) 5 [place] 799140-01-26 13:45:00 Test Item Value Reference Range Interpretation Comments WBC (test code = WBC) 4.3 3.7-10.4 [place] 799140-01-26 13:45:00 Test Item Value Reference Range Interpretation Comments RBC (test code = RBC) 3.00 4.70-6.10 [place] 799140-01-26 13:45:00 Test Item Value Reference Range Interpretation Comments Hgb (test code = Hgb) 8.4 14.0-18.0 [place] 12[address]-01-26 13:45:00 Test Item Value Reference Range Interpretation Comments Hct (test code = Hct) 25.3 42.0-54.0 [place] 799140-01-26 13:45:00 Test Item Value Reference Range Interpretation Comments MCV (test code = MCV) 84.3 80.0-94.0 [place] 12[address]-01-26 13:45:00 Test Item Value Reference Range Interpretation Comments MCH (test code = MCH) 28.2 pg 27.0-31.0 [place] [address]-01-26 13:45:00 Test Item Value Reference Range Interpretation Comments MCHC (test code = MCHC) 33.4 32.0-36.0 [place] 799140-01-26 13:45:00 Test Item Value Reference Range Interpretation Comments RDW (test code = RDW) 14.5 11.5-14.5 [place] 799140-01-26 13:45:00 Test Item Value Reference Range Interpretation Comments Platelet (test code = Platelet) 217 133-450 [place] 799140-01-26 13:45:00 Test Item Value Reference Range Interpretation Comments MPV (test code = MPV) 6.5 7.4-10.4 [place] 799140-01-26 13:45:00 Test Item Value Reference Range Interpretation Comments Segs (test code = Segs) 66.4 45.0-75.0 [place] 799140-01-26 13:45:00 Test Item Value Reference Range Interpretation Comments Lymphocytes (test code = Lymphocytes) 19.6 20.0-40.0 [place] [address]-01-26 13:45:00 Test Item Value Reference Range Interpretation Comments Monocytes (test code = Monocytes) 9.3 2.0-12.0 [place] [address]-01-26 13:45:00 Test Item Value Reference Range Interpretation Comments Eosinophils (test code = 3.7 See_Comment [A utomated message] The Eosinophils) system which ge nerated this result tra nsmitted reference range : <=4.0. The reference r yared was not used to int erpret this result as normal/abnormal . [facility] CentralDyiupbiTJHNQPFDBL5842-86-38 13:45:00 Test Item Value Reference Range Interpretation Comments Basophils (test code = 1.0 See_Comment [Aut omated message] The Basophils) system which ge nerated this result tra nsmitted reference range : <=1.0. The reference r yared was not used to int erpret this result as normal/abnormal . [place] 799140-01-26 13:45:00 Test Item Value Reference Range Interpretation Comments Neutrophils # (test code = Neutrophils 2.8 1.5-8.1 #) [facility] CentralFvjricqOXBYXRWFCQ7709-55-81 13:45:00 Test Item Value Reference Range Interpretation Comments Lymphocytes # (test code = Lymphocytes 0.8 1.0-5.5 #) [facility] CentralEvwwjpiUARBZAWLSK6336-49-69 13:45:00 Test Item Value Reference Range Interpretation Comments Monocytes # (test code 0.4 See_Comment [Aut omated message] The = Monocytes #) system which generated this result tra nsmitted reference range : <=0.8. The reference r yared was not used to int erpret this result as normal/abnormal . [facility] CentralVpcvyubHAJNPSCMXR2353-19-23 13:45:00 Test Item Value Reference Range Interpretation Comments Eosinophils # (test code 0.2 See_Comment [A utomated message] The = Eosinophils #) system whic h generated this result tra nsmitted reference range : <=0.5. The reference r yared was not used to int erpret this result as normal/abnormal . [facility]MflcpdxVMGVCKIRXPTW3896-81-47 13:25:00 Test Item Value Reference Range Interpretation Comments Sodium Lvl (test code = Sodium Lvl) 136 135-145 [place] 975460-01-25 13:25:00 Test Item Value Reference Range Interpretation Comments Potassium Lvl (test code = Potassium 3.7 3.5-5.1 Lvl) [place] 975460-01-25 13:25:00 Test Item Value Reference Range Interpretation Comments Chloride Lvl (test code = Chloride Lvl) 99 95-109 [place] 975460-01-25 13:25:00 Test Item Value Reference Range Interpretation Comments Glucose Lvl (test code = Glucose Lvl) 137 70-99 [place] 975460-01-25 13:25:00 Test Item Value Reference Range Interpretation Comments BUN (test code = BUN) 42 7-22 [facility] HospitalFfqnapvMFDQGVMFRHUD2757-17-44 13:25:00 Test Item Value Reference Range Interpretation Comments Creatinine Lvl (test code = Creatinine 9.35 0.50-1.40 Lvl) [facility] HospitalVitthkjUSSBXMMLZSER0439-98-24 13:25:00 Test Item Value Reference Range Interpretation Comments CO2 (test code = CO2) 32 24-32 [facility] HospitalSjrcutnCHTVTIAOFHSP7163-79-42 13:25:00 Test Item Value Reference Range Interpretation Comments Calcium Lvl (test code = Calcium Lvl) 8.8 8.5-10.5 [facility] HospitalYpqdaemMTQXZIDMSLAI4572-40-67 13:25:00 Test Item Value Reference Range Interpretation Comments AGAP (test code = AGAP) 8.7 10.0-20.0 [facility] HospitalQamggtdHVCJUCMPSFUW6019-62-21 13:25:00 Test Item Value Reference Range Interpretation Comments eGFR (test code = eGFR) 6 [facility] HospitalGxajgtlETXTREXKGIOK8035-86-45 13:25:00 Test Item Value Reference Range Interpretation Comments Sodium Lvl (test code = Sodium Lvl) 136 135-145 [facility] HospitalHpesxfnCYEEKVSQSSKQ6393-79-62 13:25:00 Test Item Value Reference Range Interpretation Comments Potassium Lvl (test code = Potassium 3.7 3.5-5.1 Lvl) [facility] HospitalQpgvadpRISGPTFTZXVH0337-61-86 13:25:00 Test Item Value Reference Range Interpretation Comments Chloride Lvl (test code = Chloride Lvl) 99 95-109 [facility] HospitalZnqciimNYJIUTOKEIVP6276-11-16 13:25:00 Test Item Value Reference Range Interpretation Comments Glucose Lvl (test code = Glucose Lvl) 137 70-99 [facility] HospitalGidsbpvAMXVETZRZIPC1607-47-50 13:25:00 Test Item Value Reference Range Interpretation Comments BUN (test code = BUN) 42 7-22 [facility] HospitalJuujxycYQHWRZLLTJIV3534-88-83 13:25:00 Test Item Value Reference Range Interpretation Comments Creatinine Lvl (test code = Creatinine 9.35 0.50-1.40 Lvl) [facility] HospitalAxicbwkMNWFGFERBEQY6727-42-22 13:25:00 Test Item Value Reference Range Interpretation Comments CO2 (test code = CO2) 32 24-32 [facility] HospitalJeaxipgZDTDDBUFLRZL4052-40-12 13:25:00 Test Item Value Reference Range Interpretation Comments Calcium Lvl (test code = Calcium Lvl) 8.8 8.5-10.5 [facility] HospitalMiirysqDOYJXZTKLOEA8986-87-35 13:25:00 Test Item Value Reference Range Interpretation Comments AGAP (test code = AGAP) 8.7 10.0-20.0 [facility] HospitalMrvdivrMTPBOCAEGXTT1463-25-10 13:25:00 Test Item Value Reference Range Interpretation Comments eGFR (test code = eGFR) 6 [facility] HospitalVeypbohSYRBQVGALQYJ2699-16-03 13:25:00 Test Item Value Reference Range Interpretation Comments Sodium Lvl (test code = Sodium Lvl) 136 135-145 [facility] HospitalBclmjnsRZTFZIKIVVGR4921-83-64 13:25:00 Test Item Value Reference Range Interpretation Comments Potassium Lvl (test code = Potassium 3.7 3.5-5.1 Lvl) [facility] HospitalJitsupdGTJYZJVSFKBG2823-12-13 13:25:00 Test Item Value Reference Range Interpretation Comments Chloride Lvl (test code = Chloride Lvl) 99 95-109 [facility] HospitalYmmxmotFNIHRDVXNFWP6485-33-60 13:25:00 Test Item Value Reference Range Interpretation Comments Glucose Lvl (test code = Glucose Lvl) 137 70-99 [facility] HospitalFuywclsGCIHHTHFGLRC4211-73-79 13:25:00 Test Item Value Reference Range Interpretation Comments BUN (test code = BUN) 42 7-22 [facility] HospitalTptijxxDWWPCOPEEFXW7626-26-60 13:25:00 Test Item Value Reference Range Interpretation Comments Creatinine Lvl (test code = Creatinine 9.35 0.50-1.40 Lvl) [facility] HospitalAqzgviwLHCRTNZTNZBL5679-34-12 13:25:00 Test Item Value Reference Range Interpretation Comments CO2 (test code = CO2) 32 24-32 [facility] HospitalGgvrgleGAPWMTPVGMTM2390-69-05 13:25:00 Test Item Value Reference Range Interpretation Comments Calcium Lvl (test code = Calcium Lvl) 8.8 8.5-10.5 [facility] HospitalRievjpxZLACOWTEGQDR8057-96-18 13:25:00 Test Item Value Reference Range Interpretation Comments AGAP (test code = AGAP) 8.7 10.0-20.0 [facility] HospitalXktyzhgSUWOOZYJVPTW2819-52-59 13:25:00 Test Item Value Reference Range Interpretation Comments eGFR (test code = eGFR) 6 [facility]RrjyahbNMNWLJMBJB6540-25-52 17:58:00 Test Item Value Reference Range Interpretation Comments Vanco Lvl (test code = Vanco Lvl) 10.6 [facility] QxmfhevXQMZAYKARY2691-72-41 17:58:00 Test Item Value Reference Range Interpretation Comments Vanco Lvl (test code = Vanco Lvl) 10.6 [facility] FffestsOHFFQPTCER3753-78-42 17:58:00 Test Item Value Reference Range Interpretation Comments Vanco Lvl (test code = Vanco Lvl) 10.6 [facility] HospitalannBODY HBUDTK1795-73-43 15:00:00 Test Item Value Reference Range Interpretation Comments Color BF (test code = Colorless (11/01/19 9:00 Color BF) AM) [facility] IOQAAF1453-01-34 15:00:00 Test Item Value Reference Range Interpretation Comments Clarity BF (test code = Slight Cloudy (11/01/19 Clarity BF) 9:00 AM) [facility] PLMJXE4933-99-03 15:00:00 Test Item Value Reference Range Interpretation Comments Nucleated Cells BF (test code = 579 Nucleated Cells BF) [facility] BQRHGG0593-63-11 15:00:00 Test Item Value Reference Range Interpretation Comments RBC BF (test code = RBC BF) 54 [facility] QLIXEN3227-90-27 15:00:00 Test Item Value Reference Range Interpretation Comments Neutrophils BF (test code = Neutrophils 20 BF) [facility] IJRQDP1784-50-28 15:00:00 Test Item Value Reference Range Interpretation Comments Lymph BF (test code = Lymph BF) 41 [facility] KEUXCF3137-11-96 15:00:00 Test Item Value Reference Range Interpretation Comments Macrophage BF (test code = Macrophage 35 BF) [facility] WXYYZR0169-10-25 15:00:00 Test Item Value Reference Range Interpretation Comments Meso BF (test code = Meso BF) 4 [facility] BXEITK6276-54-72 15:00:00 Test Item Value Reference Range Interpretation Comments CellCnt BF Type (test Periton (11/01/19 9:00 code = CellCnt BF Type) AM) [facility] Qutcsz1633-34-72 15:00:00 Test Item Value Reference Range Interpretation Comments Gram Stain Report No Wbc'S Or Organisms (test code = Gram Seen Stain Report) [facility]Culture: Aspirate/Body Fluid/Exknuk2121-53-00 15:00:00 Test Item Value Reference Range Interpretation Comments Culture: Aspirate/Body Fluid/Tissue No Growth (test code = Culture: Aspirate/Body Fluid/Tissue) [facility] GLQSZW4151-88-18 15:00:00 Test Item Value Reference Range Interpretation Comments Color BF (test code = Colorless (11/01/19 9:00 Color BF) AM) [facility] [id number] 15:00:00 Test Item Value Reference Range Interpretation Comments Clarity BF (test code = Slight Cloudy (11/01/19 Clarity BF) 9:00 AM) [facility]2020-01-24 15:00:00 Test Item Value Reference Range Interpretation Comments Nucleated Cells BF (test code = 579 Nucleated Cells BF) [facility]2020-01-24 15:00:00 Test Item Value Reference Range Interpretation Comments RBC BF (test code = RBC BF) 54 [facility]2020-01-24 15:00:00 Test Item Value Reference Range Interpretation Comments Neutrophils BF (test code = Neutrophils 20 BF) [facility]2020-01-24 15:00:00 Test Item Value Reference Range Interpretation Comments Lymph BF (test code = Lymph BF) 41 [facility]2020-01-24 15:00:00 Test Item Value Reference Range Interpretation Comments Macrophage BF (test code = Macrophage 35 BF) [facility]2020-01-24 15:00:00 Test Item Value Reference Range Interpretation Comments Meso BF (test code = Meso BF) 4 [facility] TDCFKN5676-94-96 15:00:00 Test Item Value Reference Range Interpretation Comments CellCnt BF Type (test Periton (11/01/19 9:00 code = CellCnt BF Type) AM) [facility] Yjpcwd7004-08-69 15:00:00 Test Item Value Reference Range Interpretation Comments Gram Stain Report No Wbc'S Or Organisms (test code = Gram Seen Stain Report) [facility]Culture: Aspirate/Body Fluid/Scagms5254-70-04 15:00:00 Test Item Value Reference Range Interpretation Comments Culture: Aspirate/Body Fluid/Tissue No Growth (test code = Culture: Aspirate/Body Fluid/Tissue) [facility]2020-01-24 15:00:00 Test Item Value Reference Range Interpretation Comments Color BF (test code = Colorless (11/01/19 9:00 Color BF) AM) [facility]2020-01-24 15:00:00 Test Item Value Reference Range Interpretation Comments Clarity BF (test code = Slight Cloudy (11/01/19 Clarity BF) 9:00 AM) [facility]2020-01-24 15:00:00 Test Item Value Reference Range Interpretation Comments Nucleated Cells BF (test code = 579 Nucleated Cells BF) [facility]2020-01-24 15:00:00 Test Item Value Reference Range Interpretation Comments RBC BF (test code = RBC BF) 54 [facility]2020-01-24 15:00:00 Test Item Value Reference Range Interpretation Comments Neutrophils BF (test code = Neutrophils 20 BF) [facility]2020-01-24 15:00:00 Test Item Value Reference Range Interpretation Comments Lymph BF (test code = Lymph BF) 41 [facility]2020-01-24 15:00:00 Test Item Value Reference Range Interpretation Comments Macrophage BF (test code = Macrophage 35 BF) [facility]2020-01-24 15:00:00 Test Item Value Reference Range Interpretation Comments Meso BF (test code = Meso BF) 4 [facility]2020-01-24 15:00:00 Test Item Value Reference Range Interpretation Comments CellCnt BF Type (test Periton (11/01/19 9:00 code = CellCnt BF Type) AM) [facility] Zldqyc2527-77-84 15:00:00 Test Item Value Reference Range Interpretation Comments Gram Stain Report No Wbc'S Or Organisms (test code = Gram Seen Stain Report) [facility] HospitalCulture: Aspirate/Body Fluid/Jyccvx8963-87-25 15:00:00 Test Item Value Reference Range Interpretation Comments Culture: Aspirate/Body Fluid/Tissue No Growth (test code = Culture: Aspirate/Body Fluid/Tissue) [facility]2020-01-23 18:35:00 Test Item Value Reference Range Interpretation Comments Color BF (test code = Colorless (10/31/19 12:35 Color BF) PM) [facility]2020-01-23 18:35:00 Test Item Value Reference Range Interpretation Comments Clarity BF (test code = Slight Cloudy (10/31/19 Clarity BF) 12:35 PM) [facility]2020-01-23 18:35:00 Test Item Value Reference Range Interpretation Comments Nucleated Cells BF (test code = 557 Nucleated Cells BF) [facility]2020-01-23 18:35:00 Test Item Value Reference Range Interpretation Comments RBC BF (test code = RBC BF) 0 [facility]2020-01-23 18:35:00 Test Item Value Reference Range Interpretation Comments Neutrophils BF (test code = Neutrophils 35 BF) [facility]2020-01-23 18:35:00 Test Item Value Reference Range Interpretation Comments Lymph BF (test code = Lymph BF) 21 [facility]2020-01-23 18:35:00 Test Item Value Reference Range Interpretation Comments Macrophage BF (test code = Macrophage 43 BF) [facility]2020-01-23 18:35:00 Test Item Value Reference Range Interpretation Comments Eos BF (test code = Eos BF) 1 [facility]2020-01-23 18:35:00 Test Item Value Reference Range Interpretation Comments CellCnt BF Type (test Periton (10/31/19 12:35 code = CellCnt BF Type) PM) [facility] [id number] 18:35:00 Test Item Value Reference Range Interpretation Comments Gram Stain Report Rare WBC's No Organisms (test code = Gram Seen Stain Report) [facility]: Aspirate/Body Fluid/[id number] 18:35:00 Test Item Value Reference Range Interpretation Comments Culture: Aspirate/Body Fluid/Tissue No Growth (test code = Culture: Aspirate/Body Fluid/Tissue) [facility]2020-01-23 18:35:00 Test Item Value Reference Range Interpretation Comments Color BF (test code = Colorless (10/31/19 12:35 Color BF) PM) [facility]2020-01-23 18:35:00 Test Item Value Reference Range Interpretation Comments Clarity BF (test code = Slight Cloudy (10/31/19 Clarity BF) 12:35 PM) [facility]2020-01-23 18:35:00 Test Item Value Reference Range Interpretation Comments Nucleated Cells BF (test code = 557 Nucleated Cells BF) [facility]2020-01-23 18:35:00 Test Item Value Reference Range Interpretation Comments RBC BF (test code = RBC BF) 0 [facility]2020-01-23 18:35:00 Test Item Value Reference Range Interpretation Comments Neutrophils BF (test code = Neutrophils 35 BF) [facility]2020-01-23 18:35:00 Test Item Value Reference Range Interpretation Comments Lymph BF (test code = Lymph BF) 21 [facility]2020-01-23 18:35:00 Test Item Value Reference Range Interpretation Comments Macrophage BF (test code = Macrophage 43 BF) [facility]2020-01-23 18:35:00 Test Item Value Reference Range Interpretation Comments Eos BF (test code = Eos BF) 1 [facility]2020-01-23 18:35:00 Test Item Value Reference Range Interpretation Comments CellCnt BF Type (test Periton (10/31/19 12:35 code = CellCnt BF Type) PM) [facility] HospitalGram Stain [id number] 18:35:00 Test Item Value Reference Range Interpretation Comments Gram Stain Report Rare WBC's No Organisms (test code = Gram Seen Stain Report) [facility] HospitalCulture: Aspirate/Body Fluid/[id number] 18:35:00 Test Item Value Reference Range Interpretation Comments Culture: Aspirate/Body Fluid/Tissue No Growth (test code = Culture: Aspirate/Body Fluid/Tissue) [facility]2020-01-23 18:35:00 Test Item Value Reference Range Interpretation Comments Color BF (test code = Colorless (10/31/19 12:35 Color BF) PM) [facility]2020-01-23 18:35:00 Test Item Value Reference Range Interpretation Comments Clarity BF (test code = Slight Cloudy (10/31/19 Clarity BF) 12:35 PM) [facility]2020-01-23 18:35:00 Test Item Value Reference Range Interpretation Comments Nucleated Cells BF (test code = 557 Nucleated Cells BF) [facility]2020-01-23 18:35:00 Test Item Value Reference Range Interpretation Comments RBC BF (test code = RBC BF) 0 [facility]2020-01-23 18:35:00 Test Item Value Reference Range Interpretation Comments Neutrophils BF (test code = Neutrophils 35 BF) [facility] [id number] 18:35:00 Test Item Value Reference Range Interpretation Comments Lymph BF (test code = Lymph BF) 21 [facility]2020-01-23 18:35:00 Test Item Value Reference Range Interpretation Comments Macrophage BF (test code = Macrophage 43 BF) [facility] [id number] 18:35:00 Test Item Value Reference Range Interpretation Comments Eos BF (test code = Eos BF) 1 [facility] [id number] 18:35:00 Test Item Value Reference Range Interpretation Comments CellCnt BF Type (test Periton (10/31/19 12:35 code = CellCnt BF Type) PM) [facility] HospitalG[facility] Stain [id number] 18:35:00 Test Item Value Reference Range Interpretation Comments Gram Stain Report Rare WBC's No Organisms (test code = Gram Seen Stain Report) [facility]Culture: Aspirate/Body Fluid/[id number] 18:35:00 Test Item Value Reference Range Interpretation Comments Culture: Aspirate/Body Fluid/Tissue No Growth (test code = Culture: Aspirate/Body Fluid/Tissue) [facility] HospitalCHEM [id number] 10:35:00 Test Item Value Reference Range Interpretation Comments Phosphorus (test code = Phosphorus) 4.3 2.5-4.5 [facility] HospitalCHEM [id number] 10:35:00 Test Item Value Reference Range Interpretation Comments Magnesium Lvl (test code = Magnesium 2.0 1.8-2.4 Lvl) [facility] HospitalRgpizlrJIWVYDUZWX3851-27-99 10:35:00 Test Item Value Reference Range Interpretation Comments WBC (test code = WBC) 6.3 3.7-10.4 [facility]HQJYXAHE3335-32-90 10:35:00 Test Item Value Reference Range Interpretation Comments RBC (test code = RBC) 2.76 4.70-6.10 [facility]ZmgikgwVLCLBXBCSP5602-17-24 10:35:00 Test Item Value Reference Range Interpretation Comments Hgb (test code = Hgb) 8.1 14.0-18.0 [facility] HospitalDrlrshyPQCICHNUZJ1272-95-53 10:35:00 Test Item Value Reference Range Interpretation Comments Hct (test code = Hct) 23.5 42.0-54.0 [place] 799140-01-23 10:35:00 Test Item Value Reference Range Interpretation Comments MCV (test code = MCV) 85.2 80.0-94.0 [place] 799140-01-23 10:35:00 Test Item Value Reference Range Interpretation Comments MCH (test code = MCH) 29.2 pg 27.0-31.0 [place] 799140-01-23 10:35:00 Test Item Value Reference Range Interpretation Comments MCHC (test code = MCHC) 34.3 32.0-36.0 [place] 799140-01-23 10:35:00 Test Item Value Reference Range Interpretation Comments RDW (test code = RDW) 14.5 11.5-14.5 [place] 799140-01-23 10:35:00 Test Item Value Reference Range Interpretation Comments Platelet (test code = Platelet) 188 133-450 [facility] CentralHrmesuqIWEGATJRFN2865-81-29 10:35:00 Test Item Value Reference Range Interpretation Comments MPV (test code = MPV) 7.0 7.4-10.4 [place] 799140-01-23 10:35:00 Test Item Value Reference Range Interpretation Comments Segs (test code = Segs) 77.7 45.0-75.0 [facility] CentralVjtcfncFVWDQADLET0653-93-54 10:35:00 Test Item Value Reference Range Interpretation Comments Lymphocytes (test code = Lymphocytes) 10.2 20.0-40.0 [place] 799140-01-23 10:35:00 Test Item Value Reference Range Interpretation Comments Monocytes (test code = Monocytes) 10.0 2.0-12.0 [place] 799140-01-23 10:35:00 Test Item Value Reference Range Interpretation Comments Eosinophils (test code = 1.7 See_Comment [A utomated message] The Eosinophils) system which ge nerated this result tra nsmitted reference range : <=4.0. The reference r yared was not used to int erpret this result as normal/abnormal . [facility] CentralHffjuniQLIJHMKGLE9772-82-03 10:35:00 Test Item Value Reference Range Interpretation Comments Basophils (test code = 0.4 See_Comment [Aut omated message] The Basophils) system which ge nerated this result tra nsmitted reference range : <=1.0. The reference r yared was not used to int erpret this result as normal/abnormal . [place] 799140-01-23 10:35:00 Test Item Value Reference Range Interpretation Comments Neutrophils # (test code = Neutrophils 4.9 1.5-8.1 #) [facility] CentralGhdlwwgTRFUIETEZB2054-32-32 10:35:00 Test Item Value Reference Range Interpretation Comments Lymphocytes # (test code = Lymphocytes 0.6 1.0-5.5 #) [place] 799140-01-23 10:35:00 Test Item Value Reference Range Interpretation Comments Monocytes # (test code 0.6 See_Comment [Aut omated message] The = Monocytes #) system which generated this result tra nsmitted reference range : <=0.8. The reference r yared was not used to int erpret this result as normal/abnormal . [facility] CentralXyqkiqgDKMIZJMAHI0735-54-15 10:35:00 Test Item Value Reference Range Interpretation Comments Eosinophils # (test code 0.1 See_Comment [A utomated message] The = Eosinophils #) system whic h generated this result tra nsmitted reference range : <=0.5. The reference r yared was not used to int erpret this result as normal/abnormal . [facility] [id number] 10:35:00 Test Item Value Reference Range Interpretation Comments Phosphorus (test code = Phosphorus) 4.3 2.5-4.5 [facility] [id number] 10:35:00 Test Item Value Reference Range Interpretation Comments Magnesium Lvl (test code = Magnesium 2.0 1.8-2.4 Lvl) [place] 799140-01-23 10:35:00 Test Item Value Reference Range Interpretation Comments WBC (test code = WBC) 6.3 3.7-10.4 [place] [address]-01-23 10:35:00 Test Item Value Reference Range Interpretation Comments RBC (test code = RBC) 2.76 4.70-6.10 [place] 799140-01-23 10:35:00 Test Item Value Reference Range Interpretation Comments Hgb (test code = Hgb) 8.1 14.0-18.0 [place] [address]-01-23 10:35:00 Test Item Value Reference Range Interpretation Comments Hct (test code = Hct) 23.5 42.0-54.0 [facility] CentralXyaoxwcEFHJNXXKJY8223-33-72 10:35:00 Test Item Value Reference Range Interpretation Comments MCV (test code = MCV) 85.2 80.0-94.0 [place] 799140-01-23 10:35:00 Test Item Value Reference Range Interpretation Comments MCH (test code = MCH) 29.2 pg 27.0-31.0 [place] 799140-01-23 10:35:00 Test Item Value Reference Range Interpretation Comments MCHC (test code = MCHC) 34.3 32.0-36.0 [facility] CentralApgnkoiMTFNDWPCJF4082-34-49 10:35:00 Test Item Value Reference Range Interpretation Comments RDW (test code = RDW) 14.5 11.5-14.5 [facility] CentralNuwmzpiWMSDQDGWWL6186-51-58 10:35:00 Test Item Value Reference Range Interpretation Comments Platelet (test code = Platelet) 188 133-450 [facility] CentralMgniuxdXOWZBAQLIJ4478-83-12 10:35:00 Test Item Value Reference Range Interpretation Comments MPV (test code = MPV) 7.0 7.4-10.4 [facility] CentralMpnodlfTTUCUVCQUI0865-57-02 10:35:00 Test Item Value Reference Range Interpretation Comments Segs (test code = Segs) 77.7 45.0-75.0 [facility] CentralOcnwbrrYQGHWLFVMQ4854-23-36 10:35:00 Test Item Value Reference Range Interpretation Comments Lymphocytes (test code = Lymphocytes) 10.2 20.0-40.0 [place] 799140-01-23 10:35:00 Test Item Value Reference Range Interpretation Comments Monocytes (test code = Monocytes) 10.0 2.0-12.0 [place] 799140-01-23 10:35:00 Test Item Value Reference Range Interpretation Comments Eosinophils (test code = 1.7 See_Comment [A utomated message] The Eosinophils) system which ge nerated this result tra nsmitted reference range : <=4.0. The reference r yared was not used to int erpret this result as normal/abnormal . [facility] CentralQompnoaTBEULQOXLA0562-97-20 10:35:00 Test Item Value Reference Range Interpretation Comments Basophils (test code = 0.4 See_Comment [Aut omated message] The Basophils) system which ge nerated this result tra nsmitted reference range : <=1.0. The reference r yared was not used to int erpret this result as normal/abnormal . [facility] CentralXwywjhpNGAOIEUCOD9203-69-31 10:35:00 Test Item Value Reference Range Interpretation Comments Neutrophils # (test code = Neutrophils 4.9 1.5-8.1 #) [facility] CentralIbwquveBVFLAEUJQO6352-34-08 10:35:00 Test Item Value Reference Range Interpretation Comments Lymphocytes # (test code = Lymphocytes 0.6 1.0-5.5 #) [facility] CentralYznptqhWXPWWJUJCP7215-45-84 10:35:00 Test Item Value Reference Range Interpretation Comments Monocytes # (test code 0.6 See_Comment [Aut omated message] The = Monocytes #) system which generated this result tra nsmitted reference range : <=0.8. The reference r yared was not used to int erpret this result as normal/abnormal . [facility] CentralGsiodxrWILKXBBLNZ4990-50-24 10:35:00 Test Item Value Reference Range Interpretation Comments Eosinophils # (test code 0.1 See_Comment [A utomated message] The = Eosinophils #) system whic h generated this result tra nsmitted reference range : <=0.5. The reference r yared was not used to int erpret this result as normal/abnormal . [facility] CUGMV4497-34-78 10:35:00 Test Item Value Reference Range Interpretation Comments Phosphorus (test code = Phosphorus) 4.3 2.5-4.5 [facility] [id number] 10:35:00 Test Item Value Reference Range Interpretation Comments Magnesium Lvl (test code = Magnesium 2.0 1.8-2.4 Lvl) [place] 799140-01-23 10:35:00 Test Item Value Reference Range Interpretation Comments WBC (test code = WBC) 6.3 3.7-10.4 [place] 799140-01-23 10:35:00 Test Item Value Reference Range Interpretation Comments RBC (test code = RBC) 2.76 4.70-6.10 [place] 799140-01-23 10:35:00 Test Item Value Reference Range Interpretation Comments Hgb (test code = Hgb) 8.1 14.0-18.0 [facility] CentralYlqtclsFOMCKXHKDS0480-05-45 10:35:00 Test Item Value Reference Range Interpretation Comments Hct (test code = Hct) 23.5 42.0-54.0 [facility] CentralVnviejsZLETPANRHW5046-73-40 10:35:00 Test Item Value Reference Range Interpretation Comments MCV (test code = MCV) 85.2 80.0-94.0 [facility] CentralZmlofkkTTHQFSOFWQ9873-66-15 10:35:00 Test Item Value Reference Range Interpretation Comments MCH (test code = MCH) 29.2 pg 27.0-31.0 [facility] CentralDvjpjjhXPDLAFPTQL6738-26-16 10:35:00 Test Item Value Reference Range Interpretation Comments MCHC (test code = MCHC) 34.3 32.0-36.0 [facility] CentralBunvntqUAPDQQGVFN1235-53-77 10:35:00 Test Item Value Reference Range Interpretation Comments RDW (test code = RDW) 14.5 11.5-14.5 [facility] CentralKwmdvhlVTKQOQQDBR2952-67-88 10:35:00 Test Item Value Reference Range Interpretation Comments Platelet (test code = Platelet) 188 133-450 [facility] CentralVcfttztAXPEMIWZSP1771-91-63 10:35:00 Test Item Value Reference Range Interpretation Comments MPV (test code = MPV) 7.0 7.4-10.4 [facility] CentralHdovhytNALKBCRIPI4666-80-36 10:35:00 Test Item Value Reference Range Interpretation Comments Segs (test code = Segs) 77.7 45.0-75.0 [facility] CentralVlgxqciIHFHVOMUYK7094-63-13 10:35:00 Test Item Value Reference Range Interpretation Comments Lymphocytes (test code = Lymphocytes) 10.2 20.0-40.0 [facility] CentralOtbkvypMJABVWAKIT7862-40-37 10:35:00 Test Item Value Reference Range Interpretation Comments Monocytes (test code = Monocytes) 10.0 2.0-12.0 [facility] CentralNejnshiXQCWVMEZCZ5098-52-99 10:35:00 Test Item Value Reference Range Interpretation Comments Eosinophils (test code = 1.7 See_Comment [A utomated message] The Eosinophils) system which ge nerated this result tra nsmitted reference range : <=4.0. The reference r yared was not used to int erpret this result as normal/abnormal . [facility] CentralNuvcmqaAQEJGAOKNS5192-26-87 10:35:00 Test Item Value Reference Range Interpretation Comments Basophils (test code = 0.4 See_Comment [Aut omated message] The Basophils) system which ge nerated this result tra nsmitted reference range : <=1.0. The reference r yared was not used to int erpret this result as normal/abnormal . [facility] CentralOsagraoRPGFAHLYRE5252-51-04 10:35:00 Test Item Value Reference Range Interpretation Comments Neutrophils # (test code = Neutrophils 4.9 1.5-8.1 #) [facility] CentralNculjzeLGTZYVYLJW2663-17-82 10:35:00 Test Item Value Reference Range Interpretation Comments Lymphocytes # (test code = Lymphocytes 0.6 1.0-5.5 #) [facility] CentralIkhzjblMXPHOGFPZS7773-77-07 10:35:00 Test Item Value Reference Range Interpretation Comments Monocytes # (test code 0.6 See_Comment [Aut omated message] The = Monocytes #) system which generated this result tra nsmitted reference range : <=0.8. The reference r yared was not used to int erpret this result as normal/abnormal . [facility] CentralVotglbpIZQFGZOVCT2712-46-66 10:35:00 Test Item Value Reference Range Interpretation Comments Eosinophils # (test code 0.1 See_Comment [A utomated message] The = Eosinophils #) system whic h generated this result tra nsmitted reference range : <=0.5. The reference r yared was not used to int erpret this result as normal/abnormal . [facility]2020-01-22 19:34:00 Test Item Value Reference Range Interpretation Comments Source Respiratory Nasophrngl Swb Panel PCR (test code = *NA*(10/30/19 1:34 PM) Source Respiratory Panel PCR) [facility]2020-01-22 19:34:00 Test Item Value Reference Range Interpretation Comments Influenza A PCR (test Negative *NA*(10/30/19 code = Influenza A PCR) 1:34 PM) [facility]2020-01-22 19:34:00 Test Item Value Reference Range Interpretation Comments Influenza B PCR (test Negative *NA*(10/30/19 code = Influenza B PCR) 1:34 PM) [facility]2020-01-22 19:34:00 Test Item Value Reference Range Interpretation Comments RSV PCR (test code = Positive *ABN*(10/30/19 RSV PCR) 1:34 PM) [facility] CenterLE[facility] [id number] 19:34:00 Test Item Value Reference Range Interpretation Comments Source Respiratory Nasophrngl Swb Panel PCR (test code = *NA*(10/30/19 1:34 PM) Source Respiratory Panel PCR) [facility] [id number] 19:34:00 Test Item Value Reference Range Interpretation Comments Influenza A PCR (test Negative *NA*(10/30/19 code = Influenza A PCR) 1:34 PM) [facility] [id number] 19:34:00 Test Item Value Reference Range Interpretation Comments Influenza B PCR (test Negative *NA*(10/30/19 code = Influenza B PCR) 1:34 PM) [facility] [id number] 19:34:00 Test Item Value Reference Range Interpretation Comments RSV PCR (test code = Positive *ABN*(10/30/19 RSV PCR) 1:34 PM) [facility] [id number] 19:34:00 Test Item Value Reference Range Interpretation Comments Source Respiratory Nasophrngl Swb Panel PCR (test code = *NA*(10/30/19 1:34 PM) Source Respiratory Panel PCR) [facility] [id number] 19:34:00 Test Item Value Reference Range Interpretation Comments Influenza A PCR (test Negative *NA*(10/30/19 code = Influenza A PCR) 1:34 PM) [facility] [id number] 19:34:00 Test Item Value Reference Range Interpretation Comments Influenza B PCR (test Negative *NA*(10/30/19 code = Influenza B PCR) 1:34 PM) [facility] [id number] 19:34:00 Test Item Value Reference Range Interpretation Comments RSV PCR (test code = Positive *ABN*(10/30/19 RSV PCR) 1:34 PM) [facility]IP[facility]SUSC:PT:ISOLATE:ORDQN:[id number] 18:00:00 Test Item Value Reference Range Interpretation Comments Gram Stain Report Few WBC's No Organisms (test code = Gram Seen Stain Report) [facility]IMIPENEM:SUSC:PT:ISOLATE:ORDQN:[id number] 18:00:00 Test Item Value Reference Range Interpretation Comments Culture: Few Pseudomonas putida Aspirate/Body Growth In Subculture Broth Fluid/Tissue (test Only Enterococcus Species code = Culture: Aspirate/Body Fluid/Tissue) [facility]IMIPENEM:SUSC:PT:ISOLATE:ORDQN:[id number] 18:00:00 Test Item Value Reference Range Interpretation Comments Enterococcus Species Enterococcus Species (test code = Enterococcus Species) [facility]IP[facility]USC:PT:ISOLATE:ORDQN:[id number] 18:00:00 Test Item Value Reference Range Interpretation Comments Pseudomonas putida (test Pseudomonas putida code = Pseudomonas putida) [facility]IM[facility]EM:SUSC:PT:ISOLATE:ORDQN:[id number] 18:00:00 Test Item Value Reference Range Interpretation Comments Gram Stain Report Few WBC's No Organisms (test code = Gram Seen Stain Report) [facility]IMIPENEM:SUSC:PT:ISOLATE:ORDQN:[id number] 18:00:00 Test Item Value Reference Range Interpretation Comments Culture: Few Pseudomonas putida Aspirate/Body Growth In Subculture Broth Fluid/Tissue (test Only Enterococcus Species code = Culture: Aspirate/Body Fluid/Tissue) [facility]IM[facility]:SUSC:PT:ISOLATE:ORDQN:[id number] 18:00:00 Test Item Value Reference Range Interpretation Comments Enterococcus Species Enterococcus Species (test code = Enterococcus Species) [facility]IM[facility]:SUSC:PT:ISOLATE:ORDQN:[id number] 18:00:00 Test Item Value Reference Range Interpretation Comments Pseudomonas putida (test Pseudomonas putida code = Pseudomonas putida) [facility]IM[facility]:SUSC:PT:ISOLATE:ORDQN:[id number] 18:00:00 Test Item Value Reference Range Interpretation Comments Gram Stain Report Few WBC's No Organisms (test code = Gram Seen Stain Report) [facility]IP[facility]USC:PT:ISOLATE:ORDQN:[id number] 18:00:00 Test Item Value Reference Range Interpretation Comments Culture: Few Pseudomonas putida Aspirate/Body Growth In Subculture Broth Fluid/Tissue (test Only Enterococcus Species code = Culture: Aspirate/Body Fluid/Tissue) [facility]IP[facility]:SUSC:PT:ISOLATE:ORDQN:[id number] 18:00:00 Test Item Value Reference Range Interpretation Comments Enterococcus Species Enterococcus Species (test code = Enterococcus Species) [facility]IP[facility]:SUSC:PT:ISOLATE:ORDQN:[id number] 18:00:00 Test Item Value Reference Range Interpretation Comments Pseudomonas putida (test Pseudomonas putida code = Pseudomonas putida) [facility]2020-01-22 17:21:00 Test Item Value Reference Range Interpretation Comments Lactic Acid Lvl (test code = Lactic 0.6 0.5-2.2 Acid Lvl) [facility]2020-01-22 17:21:00 Test Item Value Reference Range Interpretation Comments Lactic Acid Lvl (test code = Lactic 0.6 0.5-2.2 Acid Lvl) [place] 065730-01-22 17:21:00 Test Item Value Reference Range Interpretation Comments Lactic Acid Lvl (test code = Lactic 0.6 0.5-2.2 Acid Lvl) [place] 065730-01-22 10:56:00 Test Item Value Reference Range Interpretation Comments Magnesium Lvl (test code = Magnesium 2.1 1.8-2.4 Lvl) [facility]2020-01-22 10:56:00 Test Item Value Reference Range Interpretation Comments Phosphorus (test code = Phosphorus) 4.5 2.5-4.5 [place] 799140-01-22 10:56:00 Test Item Value Reference Range Interpretation Comments WBC (test code = WBC) 6.7 3.7-10.4 [place] [address]-01-22 10:56:00 Test Item Value Reference Range Interpretation Comments RBC (test code = RBC) 2.47 4.70-6.10 [place] [address]-01-22 10:56:00 Test Item Value Reference Range Interpretation Comments Hgb (test code = Hgb) 7.2 14.0-18.0 [place] [address]-01-22 10:56:00 Test Item Value Reference Range Interpretation Comments Hct (test code = Hct) 21.1 42.0-54.0 [place] 799140-01-22 10:56:00 Test Item Value Reference Range Interpretation Comments MCV (test code = MCV) 85.2 80.0-94.0 [place] 799140-01-22 10:56:00 Test Item Value Reference Range Interpretation Comments MCH (test code = MCH) 28.9 pg 27.0-31.0 [place] 799140-01-22 10:56:00 Test Item Value Reference Range Interpretation Comments MCHC (test code = MCHC) 34.0 32.0-36.0 [place] 799140-01-22 10:56:00 Test Item Value Reference Range Interpretation Comments RDW (test code = RDW) 14.6 11.5-14.5 [place] 799140-01-22 10:56:00 Test Item Value Reference Range Interpretation Comments Platelet (test code = Platelet) 171 133-450 [facility] CentralJihzgzhMZLEBKPPQK8235-92-34 10:56:00 Test Item Value Reference Range Interpretation Comments MPV (test code = MPV) 7.2 7.4-10.4 [place] 799140-01-22 10:56:00 Test Item Value Reference Range Interpretation Comments Segs (test code = Segs) 87.8 45.0-75.0 [place] 799140-01-22 10:56:00 Test Item Value Reference Range Interpretation Comments Lymphocytes (test code = Lymphocytes) 3.9 20.0-40.0 [place] 799140-01-22 10:56:00 Test Item Value Reference Range Interpretation Comments Monocytes (test code = Monocytes) 6.8 2.0-12.0 [place] 799140-01-22 10:56:00 Test Item Value Reference Range Interpretation Comments Eosinophils (test code = 1.1 See_Comment [A utomated message] The Eosinophils) system which ge nerated this result tra nsmitted reference range : <=4.0. The reference r yared was not used to int erpret this result as normal/abnormal . [place] 799140-01-22 10:56:00 Test Item Value Reference Range Interpretation Comments Basophils (test code = 0.4 See_Comment [Aut omated message] The Basophils) system which ge nerated this result tra nsmitted reference range : <=1.0. The reference r yared was not used to int erpret this result as normal/abnormal . [facility]HomkodtMFPZLNHGIX7317-38-68 10:56:00 Test Item Value Reference Range Interpretation Comments Neutrophils # (test code = Neutrophils 5.9 1.5-8.1 #) [facility] CentralEfcdnmrYBRKTLZCAU9149-18-84 10:56:00 Test Item Value Reference Range Interpretation Comments Lymphocytes # (test code = Lymphocytes 0.3 1.0-5.5 #) [facility] CentralIrlfzicHTEEYFMAJK9396-11-44 10:56:00 Test Item Value Reference Range Interpretation Comments Monocytes # (test code 0.5 See_Comment [Aut omated message] The = Monocytes #) system which generated this result tra nsmitted reference range : <=0.8. The reference r yared was not used to int erpret this result as normal/abnormal . [facility] CentralTujmhgeWBMQDHIVLV2506-73-40 10:56:00 Test Item Value Reference Range Interpretation Comments Eosinophils # (test code 0.1 See_Comment [A utomated message] The = Eosinophils #) system whic h generated this result tra nsmitted reference range : <=0.5. The reference r yared was not used to int erpret this result as normal/abnormal . [facility] [id number] 10:56:00 Test Item Value Reference Range Interpretation Comments Magnesium Lvl (test code = Magnesium 2.1 1.8-2.4 Lvl) [facility] [id number] 10:56:00 Test Item Value Reference Range Interpretation Comments Phosphorus (test code = Phosphorus) 4.5 2.5-4.5 [facility] CentralAraqmrkTMPSGRXFTD0627-92-90 10:56:00 Test Item Value Reference Range Interpretation Comments WBC (test code = WBC) 6.7 3.7-10.4 [place] 799140-01-22 10:56:00 Test Item Value Reference Range Interpretation Comments RBC (test code = RBC) 2.47 4.70-6.10 [place] 799140-01-22 10:56:00 Test Item Value Reference Range Interpretation Comments Hgb (test code = Hgb) 7.2 14.0-18.0 [place] 799140-01-22 10:56:00 Test Item Value Reference Range Interpretation Comments Hct (test code = Hct) 21.1 42.0-54.0 [facility] CentralXztmdjxOJYNLYUMOZ4278-98-93 10:56:00 Test Item Value Reference Range Interpretation Comments MCV (test code = MCV) 85.2 80.0-94.0 [place] 799140-01-22 10:56:00 Test Item Value Reference Range Interpretation Comments MCH (test code = MCH) 28.9 pg 27.0-31.0 [facility] CentralXjqscoyVDVCWFVFFV4052-83-55 10:56:00 Test Item Value Reference Range Interpretation Comments MCHC (test code = MCHC) 34.0 32.0-36.0 [facility] CentralTuxcnctRUCPONVGTB6810-84-39 10:56:00 Test Item Value Reference Range Interpretation Comments RDW (test code = RDW) 14.6 11.5-14.5 [facility] CentralIgtfkvfDGVXMSVACF3269-88-84 10:56:00 Test Item Value Reference Range Interpretation Comments Platelet (test code = Platelet) 171 133-450 [facility] CentralZjdqxtpSRSTUOMOJN7314-40-56 10:56:00 Test Item Value Reference Range Interpretation Comments MPV (test code = MPV) 7.2 7.4-10.4 [facility] CentralFnqfqnsSWDMIXQQKA0343-60-16 10:56:00 Test Item Value Reference Range Interpretation Comments Segs (test code = Segs) 87.8 45.0-75.0 [facility] CentralJtzohmqKGXXBULIXB0951-87-53 10:56:00 Test Item Value Reference Range Interpretation Comments Lymphocytes (test code = Lymphocytes) 3.9 20.0-40.0 [facility] CentralRmoijenKVFMIXJIFX5788-44-42 10:56:00 Test Item Value Reference Range Interpretation Comments Monocytes (test code = Monocytes) 6.8 2.0-12.0 [place] 799140-01-22 10:56:00 Test Item Value Reference Range Interpretation Comments Eosinophils (test code = 1.1 See_Comment [A utomated message] The Eosinophils) system which ge nerated this result tra nsmitted reference range : <=4.0. The reference r yared was not used to int erpret this result as normal/abnormal . [facility] CentralKqkqxwuUTSDITYJDC2528-32-64 10:56:00 Test Item Value Reference Range Interpretation Comments Basophils (test code = 0.4 See_Comment [Aut omated message] The Basophils) system which ge nerated this result tra nsmitted reference range : <=1.0. The reference r yared was not used to int erpret this result as normal/abnormal . [facility] CentralLfngjpiJPISGAKKPU4930-60-51 10:56:00 Test Item Value Reference Range Interpretation Comments Neutrophils # (test code = Neutrophils 5.9 1.5-8.1 #) [facility] CentralNektatnEZAMZIDAMO6504-87-16 10:56:00 Test Item Value Reference Range Interpretation Comments Lymphocytes # (test code = Lymphocytes 0.3 1.0-5.5 #) [facility] CentralDhvvamvQJMMNHNXDS9707-08-78 10:56:00 Test Item Value Reference Range Interpretation Comments Monocytes # (test code 0.5 See_Comment [Aut omated message] The = Monocytes #) system which generated this result tra nsmitted reference range : <=0.8. The reference r yared was not used to int erpret this result as normal/abnormal . [facility] CentralSufnjhfQZBNUPJFEF9920-19-17 10:56:00 Test Item Value Reference Range Interpretation Comments Eosinophils # (test code 0.1 See_Comment [A utomated message] The = Eosinophils #) system whic h generated this result tra nsmitted reference range : <=0.5. The reference r yared was not used to int erpret this result as normal/abnormal . [facility] [id number] 10:56:00 Test Item Value Reference Range Interpretation Comments Magnesium Lvl (test code = Magnesium 2.1 1.8-2.4 Lvl) [facility] [id number] 10:56:00 Test Item Value Reference Range Interpretation Comments Phosphorus (test code = Phosphorus) 4.5 2.5-4.5 [place] 799140-01-22 10:56:00 Test Item Value Reference Range Interpretation Comments WBC (test code = WBC) 6.7 3.7-10.4 [place] 799140-01-22 10:56:00 Test Item Value Reference Range Interpretation Comments RBC (test code = RBC) 2.47 4.70-6.10 [place] [address]-01-22 10:56:00 Test Item Value Reference Range Interpretation Comments Hgb (test code = Hgb) 7.2 14.0-18.0 [facility] CentralWdeptiiGZAOUIAYPD1653-84-43 10:56:00 Test Item Value Reference Range Interpretation Comments Hct (test code = Hct) 21.1 42.0-54.0 [facility] CentralHxglarpXBGUSQOJSM9495-36-78 10:56:00 Test Item Value Reference Range Interpretation Comments MCV (test code = MCV) 85.2 80.0-94.0 [facility] CentralDwbrednDHMHWCPXTY5152-46-32 10:56:00 Test Item Value Reference Range Interpretation Comments MCH (test code = MCH) 28.9 pg 27.0-31.0 [facility] CentralGslaajuJPVEHILLVJ1785-44-77 10:56:00 Test Item Value Reference Range Interpretation Comments MCHC (test code = MCHC) 34.0 32.0-36.0 [facility] CentralSxccezuXIDUIHRTRR4944-07-89 10:56:00 Test Item Value Reference Range Interpretation Comments RDW (test code = RDW) 14.6 11.5-14.5 [facility] CentralWyvtuzdNCRUGOLQLJ5243-95-55 10:56:00 Test Item Value Reference Range Interpretation Comments Platelet (test code = Platelet) 171 133-450 [facility] CentralWbwvqlrIXEJCSVWWU8034-59-05 10:56:00 Test Item Value Reference Range Interpretation Comments MPV (test code = MPV) 7.2 7.4-10.4 [facility] CentralJrtlmgjXDFRDWGBJN8017-86-65 10:56:00 Test Item Value Reference Range Interpretation Comments Segs (test code = Segs) 87.8 45.0-75.0 [facility] CentralPyrvkjtILMNTCYUJT8080-42-05 10:56:00 Test Item Value Reference Range Interpretation Comments Lymphocytes (test code = Lymphocytes) 3.9 20.0-40.0 [facility] CentralOamldsjIPWIMABCEL1790-59-44 10:56:00 Test Item Value Reference Range Interpretation Comments Monocytes (test code = Monocytes) 6.8 2.0-12.0 [place] 799140-01-22 10:56:00 Test Item Value Reference Range Interpretation Comments Eosinophils (test code = 1.1 See_Comment [A utomated message] The Eosinophils) system which ge nerated this result tra nsmitted reference range : <=4.0. The reference r yared was not used to int erpret this result as normal/abnormal . [facility] CentralWbyhzwzGJCMJKKDVR3987-16-45 10:56:00 Test Item Value Reference Range Interpretation Comments Basophils (test code = 0.4 See_Comment [Aut omated message] The Basophils) system which ge nerated this result tra nsmitted reference range : <=1.0. The reference r yared was not used to int erpret this result as normal/abnormal . [facility] CentralGeusjusMKDFPGPAGF9086-78-86 10:56:00 Test Item Value Reference Range Interpretation Comments Neutrophils # (test code = Neutrophils 5.9 1.5-8.1 #) [place] 799140-01-22 10:56:00 Test Item Value Reference Range Interpretation Comments Lymphocytes # (test code = Lymphocytes 0.3 1.0-5.5 #) [facility] CentralJkowpvtUBQBAFDZLE2902-17-97 10:56:00 Test Item Value Reference Range Interpretation Comments Monocytes # (test code 0.5 See_Comment [Aut omated message] The = Monocytes #) system which generated this result tra nsmitted reference range : <=0.8. The reference r yared was not used to int erpret this result as normal/abnormal . [facility] CentralRrubkxiHJDHKUKRDK0109-57-86 10:56:00 Test Item Value Reference Range Interpretation Comments Eosinophils # (test code 0.1 See_Comment [A utomated message] The = Eosinophils #) system whic h generated this result tra nsmitted reference range : <=0.5. The reference r yared was not used to int erpret this result as normal/abnormal . [facility]2020-01-21 22:52:00 Test Item Value Reference Range Interpretation Comments Magnesium Lvl (test code = Magnesium 2.2 1.8-2.4 Lvl) [place] 065730-01-21 22:52:00 Test Item Value Reference Range Interpretation Comments Phosphorus (test code = Phosphorus) 5.8 2.5-4.5 [place] 065730-01-21 22:52:00 Test Item Value Reference Range Interpretation Comments Magnesium Lvl (test code = Magnesium 2.2 1.8-2.4 Lvl) [place] 065730-01-21 22:52:00 Test Item Value Reference Range Interpretation Comments Phosphorus (test code = Phosphorus) 5.8 2.5-4.5 [facility] [id number] 22:52:00 Test Item Value Reference Range Interpretation Comments Magnesium Lvl (test code = Magnesium 2.2 1.8-2.4 Lvl) [facility] [id number] 22:52:00 Test Item Value Reference Range Interpretation Comments Phosphorus (test code = Phosphorus) 5.8 2.5-4.5 [facility] HospitalTrusted Hands NetworkCAVER[facility] [id number] 10:47:00 Test Item Value Reference Range Interpretation Comments Troponin-I (test code 0.02 See_Comment [Auto mated message] The = Troponin-I) system which g enerated this result transmit emerson reference range : <=0.40. The reference r yared was not used to interpr et this result as erinn l/abnormal. [facility] HospitalTrusted [facility] NetworkCAVERNA [facility] [id number] 10:47:00 Test Item Value Reference Range Interpretation Comments Troponin-I (test code 0.02 See_Comment [Auto mated message] The = Troponin-I) system which g enerated this result transmit emerson reference range : <=0.40. The reference r yared was not used to interpr et this result as erinn l/abnormal. [facility] [id number] 10:47:00 Test Item Value Reference Range Interpretation Comments Troponin-I (test code 0.02 See_Comment [Auto mated message] The = Troponin-I) system which g enerated this result transmit emerson reference range : <=0.40. The reference r yared was not used to interpr et this result as erinn l/abnormal. [facility] [id number] 07:19:00 Test Item Value Reference Range Interpretation Comments Troponin-I (test code 0.02 See_Comment [Auto mated message] The = Troponin-I) system which g enerated this result transmit emerson reference range : <=0.40. The reference r yared was not used to interpr et this result as erinn l/abnormal. [facility] [employer]2020-01-21 07:19:00 Test Item Value Reference Range Interpretation Comments Troponin-I (test code 0.02 See_Comment [Auto mated message] The = Troponin-I) system which g enerated this result transmit emerson reference range : <=0.40. The reference r yared was not used to interpr et this result as erinn l/abnormal. [facility] Exam18 [id number] 07:19:00 Test Item Value Reference Range Interpretation Comments Troponin-I (test code 0.02 See_Comment [Auto mated message] The = Troponin-I) system which g enerated this result transmit emerson reference range : <=0.40. The reference r yared was not used to interpr et this result as erinn l/abnormal. [facility] Exam18 [id number] 03:06:00 Test Item Value Reference Range Interpretation Comments Troponin-I (test code no gt See_Comment [Auto mated message] The = Troponin-I) system which g enerated this result transmit emerson reference range : <=0.40. The reference r yared was not used to interpr et this result as erinn l/abnormal. [facility] [employer]2020-01-21 03:06:00 Test Item Value Reference Range Interpretation Comments Total Protein (test code = Total 5.5 6.4-8.4 Protein) [facility] [employer]2020-01-21 03:06:00 Test Item Value Reference Range Interpretation Comments Albumin Lvl (test code = Albumin Lvl) 2.3 3.5-5.[address] [facility] [employer]2020-01-21 03:06:00 Test Item Value Reference Range Interpretation Comments ALT (test code = ALT) 22 See_Comment [Auto mated message] The system which ge nerated this result transmit emerson reference range : <=65. The reference range was not used to interpr et this result as erinn l/abnormal. [employer] [id number] 03:06:00 Test Item Value Reference Range Interpretation Comments AST (test code = AST) 50 See_Comment [Auto mated message] The system which ge nerated this result transmit emerson reference range : <=37. The reference range was not used to interpr et this result as erinn l/abnormal. [employer]2020-01-21 03:06:00 Test Item Value Reference Range Interpretation Comments Alk Phos (test code = Alk Phos) 68 39-[address] [facility] [employer] [id number] 03:06:00 Test Item Value Reference Range Interpretation Comments Bili Total (test code = Bili Total) 0.6 0.2-1.3 [facility] [employer]2020-01-21 03:06:00 Test Item Value Reference Range Interpretation Comments B/C Ratio (test code = B/C Ratio) 5 1 6-25 [facility]Law[facility] LaboratoryCHEM [id number] 03:06:00 Test Item Value Reference Range Interpretation Comments Globulin (test code = Globulin) 3.2 2.7-4.2 [facility] [id number] 03:06:00 Test Item Value Reference Range Interpretation Comments A/G Ratio (test code = A/G Ratio) 0.7 1 0.7-1.6 [facility] HospitalThbjbwrAMBIYWKVBB7413-22-29 03:06:00 Test Item Value Reference Range Interpretation Comments Plt Morph (test code = Normal (10/28/19 9:06 Plt Morph) PM) [facility] HospitalJfngfyrZWGVHJDCHZ2261-90-96 03:06:00 Test Item Value Reference Range Interpretation Comments Basophils # (test code 0.1 See_Comment [Aut omated message] The = Basophils #) system which generated this result tra nsmitted reference range : <=0.2. The reference r yared was not used to int erpret this result as normal/abnormal . [facility] HospitalCARDIAC [id number] 03:06:00 Test Item Value Reference Range Interpretation Comments Troponin-I (test code no gt See_Comment [Auto mated message] The = Troponin-I) system which g enerated this result transmit emerson reference range : <=0.40. The reference r yared was not used to interpr et this result as erinn l/abnormal. [facility]My[facility] [id number] 03:06:00 Test Item Value Reference Range Interpretation Comments Total Protein (test code = Total 5.5 6.4-8.4 Protein) [facility] [id number] 03:06:00 Test Item Value Reference Range Interpretation Comments Albumin Lvl (test code = Albumin Lvl) 2.3 3.5-5.0 [facility] [id number] 03:06:00 Test Item Value Reference Range Interpretation Comments ALT (test code = ALT) 22 See_Comment [Auto mated message] The system which ge nerated this result transmit emerson reference range : <=65. The reference range was not used to interpr et this result as erinn l/abnormal. [facility] [employer]2020-01-21 03:06:00 Test Item Value Reference Range Interpretation Comments AST (test code = AST) 50 See_Comment [Auto mated message] The system which ge nerated this result transmit emerson reference range : <=37. The reference range was not used to interpr et this result as erinn l/abnormal. [facility] [id number] 03:06:00 Test Item Value Reference Range Interpretation Comments Alk Phos (test code = Alk Phos) 68 39-136 [facility] [id number] 03:06:00 Test Item Value Reference Range Interpretation Comments Bili Total (test code = Bili Total) 0.6 0.2-1.3 [facility] [id number] 03:06:00 Test Item Value Reference Range Interpretation Comments B/C Ratio (test code = B/C Ratio) 5 1 6-25 [facility] [id number] 03:06:00 Test Item Value Reference Range Interpretation Comments Globulin (test code = Globulin) 3.2 2.7-4.2 [facility] [id number] 03:06:00 Test Item Value Reference Range Interpretation Comments A/G Ratio (test code = A/G Ratio) 0.7 1 0.7-1.6 [facility] Ho[id number] 03:06:00 Test Item Value Reference Range Interpretation Comments Plt Morph (test code = Normal (10/28/19 9:06 Plt Morph) PM) [facility] Hos[id number] 03:06:00 Test Item Value Reference Range Interpretation Comments Basophils # (test code 0.1 See_Comment [Aut omated message] The = Basophils #) system which generated this result tra nsmitted reference range : <=0.2. The reference r yared was not used to int erpret this result as normal/abnormal . [facility] HospitalCARDIAC [id number] 03:06:00 Test Item Value Reference Range Interpretation Comments Troponin-I (test code no gt See_Comment [Auto mated message] The = Troponin-I) system which g enerated this result transmit emerson reference range : <=0.40. The reference r yared was not used to interpr et this result as erinn l/abnormal. [facility] [id number] 03:06:00 Test Item Value Reference Range Interpretation Comments Total Protein (test code = Total 5.5 6.4-8.4 Protein) [place] 065730-01-21 03:06:00 Test Item Value Reference Range Interpretation Comments Albumin Lvl (test code = Albumin Lvl) 2.3 3.5-5.0 [place] 065730-01-21 03:06:00 Test Item Value Reference Range Interpretation Comments ALT (test code = ALT) 22 See_Comment [Auto mated message] The system which ge nerated this result transmit emerson reference range : <=65. The reference range was not used to interpr et this result as erinn l/abnormal. [facility] [id number] 03:06:00 Test Item Value Reference Range Interpretation Comments AST (test code = AST) 50 See_Comment [Auto mated message] The system which ge nerated this result transmit emerson reference range : <=37. The reference range was not used to interpr et this result as erinn l/abnormal. [facility] [id number] 03:06:00 Test Item Value Reference Range Interpretation Comments Alk Phos (test code = Alk Phos) 68 39-136 [facility] [id number] 03:06:00 Test Item Value Reference Range Interpretation Comments Bili Total (test code = Bili Total) 0.6 0.2-1.3 [facility] [id number] 03:06:00 Test Item Value Reference Range Interpretation Comments B/C Ratio (test code = B/C Ratio) 5 1 6-25 [facility] [id number] 03:06:00 Test Item Value Reference Range Interpretation Comments Globulin (test code = Globulin) 3.2 2.7-4.2 [facility] [id number] 03:06:00 Test Item Value Reference Range Interpretation Comments A/G Ratio (test code = A/G Ratio) 0.7 1 0.7-1.6 [place] 799140-01-21 03:06:00 Test Item Value Reference Range Interpretation Comments Plt Morph (test code = Normal (10/28/19 9:06 Plt Morph) PM) [facility] [id number] 03:06:00 Test Item Value Reference Range Interpretation Comments Basophils # (test code 0.1 See_Comment [Aut omated message] The = Basophils #) system which generated this result tra nsmitted reference range : <=0.2. The reference r yared was not used to int erpret this result as normal/abnormal . [facility]2019-11-12 10:56:00 Test Item Value Reference Range Interpretation Comments Glucose Lvl (test code = Glucose Lvl) 93 70-99 [facility]2019-11-12 10:56:00 Test Item Value Reference Range Interpretation Comments BUN (test code = BUN) 26 7-22 [facility]2019-11-12 10:56:00 Test Item Value Reference Range Interpretation Comments Creatinine Lvl (test code = Creatinine 7.85 0.50-1.40 Lvl) [facility]2019-11-12 10:56:00 Test Item Value Reference Range Interpretation Comments Sodium Lvl (test code = Sodium Lvl) 140 135-145 [facility]2019-11-12 10:56:00 Test Item Value Reference Range Interpretation Comments Potassium Lvl (test code = Potassium 3.7 3.5-5.1 Lvl) [facility]2019-11-12 10:56:00 Test Item Value Reference Range Interpretation Comments Chloride Lvl (test code = Chloride Lvl) 104 95-109 [facility]2019-11-12 10:56:00 Test Item Value Reference Range Interpretation Comments CO2 (test code = CO2) 25 24-32 [facility]2019-11-12 10:56:00 Test Item Value Reference Range Interpretation Comments Calcium Lvl (test code = Calcium Lvl) 9.2 8.5-10.5 [facility]2019-11-12 10:56:00 Test Item Value Reference Range Interpretation Comments eGFR (test code = eGFR) 7 [facility]2019-11-12 10:56:00 Test Item Value Reference Range Interpretation Comments AGAP (test code = AGAP) 14.7 10.0-20.0 [facility] CentralBlowgknGCWPSMMBXC4396-68-14 10:56:00 Test Item Value Reference Range Interpretation Comments WBC (test code = WBC) 8.6 3.7-10.4 [facility] CentralYqdnjpxDRDEGLNZTN7541-80-97 10:56:00 Test Item Value Reference Range Interpretation Comments RBC (test code = RBC) 3.37 4.70-6.10 [facility] CentralRvktyetFZKAFFMRTF1047-47-87 10:56:00 Test Item Value Reference Range Interpretation Comments Hgb (test code = Hgb) 10.2 14.0-18.0 [facility] CentralIvgqqadBKKHOTIJRX6839-58-12 10:56:00 Test Item Value Reference Range Interpretation Comments Hct (test code = Hct) 29.9 42.0-54.0 [facility] CentralRqpsfypCJZAYBSDGG3038-83-14 10:56:00 Test Item Value Reference Range Interpretation Comments MCV (test code = MCV) 88.7 80.0-94.0 [facility] CentralPvvtwhgJDINHIZEOT6804-43-35 10:56:00 Test Item Value Reference Range Interpretation Comments MCH (test code = MCH) 30.1 pg 27.0-31.0 [facility] CentralLmlultxPTNXBBMCBA8097-10-46 10:56:00 Test Item Value Reference Range Interpretation Comments MCHC (test code = MCHC) 33.9 32.0-36.0 [facility] CentralWyhajnnBOBJAODNTP8160-89-38 10:56:00 Test Item Value Reference Range Interpretation Comments RDW (test code = RDW) 13.7 11.5-14.5 [facility] CentralLfibnsqLIOGPZHSSN6383-91-44 10:56:00 Test Item Value Reference Range Interpretation Comments Platelet (test code = Platelet) 294 133-450 [facility] CentralBtnqhkrPTOAGYTQEG5900-25-62 10:56:00 Test Item Value Reference Range Interpretation Comments MPV (test code = MPV) 6.7 7.4-10.4 [facility] CentralIdmkzhmBEKRBJRVZR5045-48-53 10:56:00 Test Item Value Reference Range Interpretation Comments Segs (test code = Segs) 79.5 45.0-75.0 [facility] CentralWrwxpweFEZPKQRDNN1166-67-64 10:56:00 Test Item Value Reference Range Interpretation Comments Lymphocytes (test code = Lymphocytes) 12.8 20.0-40.0 [facility] CentralYqjfhcdIASZVAZZBH3346-92-87 10:56:00 Test Item Value Reference Range Interpretation Comments Monocytes (test code = Monocytes) 6.3 2.0-12.0 [facility] CentralJikrxfiYWGVFMAGXS8378-25-52 10:56:00 Test Item Value Reference Range Interpretation Comments Eosinophils (test code = 0.6 See_Comment [A utomated message] The Eosinophils) system which ge nerated this result tra nsmitted reference range : <=4.0. The reference r yared was not used to int erpret this result as normal/abnormal . [facility] CentralGqsfvpaXATLZEZCQA6065-64-28 10:56:00 Test Item Value Reference Range Interpretation Comments Basophils (test code = 0.8 See_Comment [Aut omated message] The Basophils) system which ge nerated this result tra nsmitted reference range : <=1.0. The reference r yared was not used to int erpret this result as normal/abnormal . [facility] CentralOsjrjjxVCNSOURNQX6618-16-81 10:56:00 Test Item Value Reference Range Interpretation Comments Neutrophils # (test code = Neutrophils 6.8 1.5-8.1 #) [facility] CentralAjqopklZQQFBVYJUN7687-12-64 10:56:00 Test Item Value Reference Range Interpretation Comments Lymphocytes # (test code = Lymphocytes 1.1 1.0-5.5 #) [facility] CentralZwhlwwbQIHSVBCWET7418-55-70 10:56:00 Test Item Value Reference Range Interpretation Comments Monocytes # (test code 0.5 See_Comment [Aut omated message] The = Monocytes #) system which generated this result tra nsmitted reference range : <=0.8. The reference r yared was not used to int erpret this result as normal/abnormal . [facility] CentralVwnnpueHQZFBXFHVH2349-25-08 10:56:00 Test Item Value Reference Range Interpretation Comments Basophils # (test code 0.1 See_Comment [Aut omated message] The = Basophils #) system which generated this result tra nsmitted reference range : <=0.2. The reference r yared was not used to int erpret this result as normal/abnormal . [facility]2019-11-12 10:56:00 Test Item Value Reference Range Interpretation Comments Glucose Lvl (test code = Glucose Lvl) 93 70-99 [facility]2019-11-12 10:56:00 Test Item Value Reference Range Interpretation Comments BUN (test code = BUN) 26 7-22 [facility]2019-11-12 10:56:00 Test Item Value Reference Range Interpretation Comments Creatinine Lvl (test code = Creatinine 7.85 0.50-1.40 Lvl) [facility]2019-11-12 10:56:00 Test Item Value Reference Range Interpretation Comments Sodium Lvl (test code = Sodium Lvl) 140 135-145 [facility]2019-11-12 10:56:00 Test Item Value Reference Range Interpretation Comments Potassium Lvl (test code = Potassium 3.7 3.5-5.1 Lvl) [facility]2019-11-12 10:56:00 Test Item Value Reference Range Interpretation Comments Chloride Lvl (test code = Chloride Lvl) 104 95-109 [facility]2019-11-12 10:56:00 Test Item Value Reference Range Interpretation Comments CO2 (test code = CO2) 25 24-32 [facility]2019-11-12 10:56:00 Test Item Value Reference Range Interpretation Comments Calcium Lvl (test code = Calcium Lvl) 9.2 8.5-10.5 [facility]2019-11-12 10:56:00 Test Item Value Reference Range Interpretation Comments eGFR (test code = eGFR) 7 [facility]2019-11-12 10:56:00 Test Item Value Reference Range Interpretation Comments AGAP (test code = AGAP) 14.7 10.0-20.0 [facility] CentralKtwhcleOHJAEZIRWW1157-81-95 10:56:00 Test Item Value Reference Range Interpretation Comments WBC (test code = WBC) 8.6 3.7-10.4 [facility] CentralEggdewaAOWCKUTHMC6760-21-08 10:56:00 Test Item Value Reference Range Interpretation Comments RBC (test code = RBC) 3.37 4.70-6.10 [facility] CentralTlygaicNAKFVPBBRZ2849-84-98 10:56:00 Test Item Value Reference Range Interpretation Comments Hgb (test code = Hgb) 10.2 14.0-18.0 [facility] CentralLosbatyXZPUIPXBQD8518-74-18 10:56:00 Test Item Value Reference Range Interpretation Comments Hct (test code = Hct) 29.9 42.0-54.0 [facility] CentralDddotcfNXZJOFVPHF3655-64-66 10:56:00 Test Item Value Reference Range Interpretation Comments MCV (test code = MCV) 88.7 80.0-94.0 [facility] CentralAxiszjlJJPSWYJPFZ8787-23-65 10:56:00 Test Item Value Reference Range Interpretation Comments MCH (test code = MCH) 30.1 pg 27.0-31.0 [facility] CentralZpzdiqdHWQOZZWWND6970-12-89 10:56:00 Test Item Value Reference Range Interpretation Comments MCHC (test code = MCHC) 33.9 32.0-36.0 [facility] CentralGowfcztCNMWJJHOAJ9063-37-86 10:56:00 Test Item Value Reference Range Interpretation Comments RDW (test code = RDW) 13.7 11.5-14.5 [facility] CentralWzstwvxGMBLPYDWBD8076-78-45 10:56:00 Test Item Value Reference Range Interpretation Comments Platelet (test code = Platelet) 294 133-450 [facility] CentralRnsbpaePEZWWMXBCL2441-06-88 10:56:00 Test Item Value Reference Range Interpretation Comments MPV (test code = MPV) 6.7 7.4-10.4 [facility] CentralHlsfyepBVAXOIUPGD3460-08-51 10:56:00 Test Item Value Reference Range Interpretation Comments Segs (test code = Segs) 79.5 45.0-75.0 [facility] CentralLgffzvbTSIDZDPELY2627-18-84 10:56:00 Test Item Value Reference Range Interpretation Comments Lymphocytes (test code = Lymphocytes) 12.8 20.0-40.0 [facility] CentralJhifvyvPHLWUVDPJM6620-24-04 10:56:00 Test Item Value Reference Range Interpretation Comments Monocytes (test code = Monocytes) 6.3 2.0-12.0 [facility] CentralUlrdhtlVYYUQIVHXM9173-16-06 10:56:00 Test Item Value Reference Range Interpretation Comments Eosinophils (test code = 0.6 See_Comment [A utomated message] The Eosinophils) system which ge nerated this result tra nsmitted reference range : <=4.0. The reference r yared was not used to int erpret this result as normal/abnormal . [facility] CentralMrokukbYTRVSQYHEC5891-19-77 10:56:00 Test Item Value Reference Range Interpretation Comments Basophils (test code = 0.8 See_Comment [Aut omated message] The Basophils) system which ge nerated this result tra nsmitted reference range : <=1.0. The reference r yared was not used to int erpret this result as normal/abnormal . [facility] CentralQkwnadjSOSPGKLLVQ7097-14-77 10:56:00 Test Item Value Reference Range Interpretation Comments Neutrophils # (test code = Neutrophils 6.8 1.5-8.1 #) [facility] CentralUsxggaoZYHKOXOKQU3290-58-67 10:56:00 Test Item Value Reference Range Interpretation Comments Lymphocytes # (test code = Lymphocytes 1.1 1.0-5.5 #) [facility] CentralIeseybqQBLLWZKFKD2366-08-20 10:56:00 Test Item Value Reference Range Interpretation Comments Monocytes # (test code 0.5 See_Comment [Aut omated message] The = Monocytes #) system which generated this result tra nsmitted reference range : <=0.8. The reference r yared was not used to int erpret this result as normal/abnormal . [facility] CentralCynbeosRTRBCJACRE2513-72-18 10:56:00 Test Item Value Reference Range Interpretation Comments Basophils # (test code 0.1 See_Comment [Aut omated message] The = Basophils #) system which generated this result tra nsmitted reference range : <=0.2. The reference r yared was not used to int erpret this result as normal/abnormal . [facility]2019-11-12 10:56:00 Test Item Value Reference Range Interpretation Comments Glucose Lvl (test code = Glucose Lvl) 93 70-99 [facility]2019-11-12 10:56:00 Test Item Value Reference Range Interpretation Comments BUN (test code = BUN) 26 7-22 [facility]2019-11-12 10:56:00 Test Item Value Reference Range Interpretation Comments Creatinine Lvl (test code = Creatinine 7.85 0.50-1.40 Lvl) [facility]2019-11-12 10:56:00 Test Item Value Reference Range Interpretation Comments Sodium Lvl (test code = Sodium Lvl) 140 135-145 [facility]2019-11-12 10:56:00 Test Item Value Reference Range Interpretation Comments Potassium Lvl (test code = Potassium 3.7 3.5-5.1 Lvl) [facility]2019-11-12 10:56:00 Test Item Value Reference Range Interpretation Comments Chloride Lvl (test code = Chloride Lvl) 104 95-109 [facility]2019-11-12 10:56:00 Test Item Value Reference Range Interpretation Comments CO2 (test code = CO2) 25 24-32 [facility]2019-11-12 10:56:00 Test Item Value Reference Range Interpretation Comments Calcium Lvl (test code = Calcium Lvl) 9.2 8.5-10.5 [facility] ILSXP1357-37-02 10:56:00 Test Item Value Reference Range Interpretation Comments eGFR (test code = eGFR) 7 [facility] LCFQR1873-90-51 10:56:00 Test Item Value Reference Range Interpretation Comments AGAP (test code = AGAP) 14.7 10.0-20.0 [facility] CentralVcdnvqiBNHSDDBXWK6231-13-60 10:56:00 Test Item Value Reference Range Interpretation Comments WBC (test code = WBC) 8.6 3.7-10.4 [facility] CentralHxxcehwLONOZPVUBL8101-01-42 10:56:00 Test Item Value Reference Range Interpretation Comments RBC (test code = RBC) 3.37 4.70-6.10 [facility] CentralTfqgytuTFHQATIZCB1135-60-34 10:56:00 Test Item Value Reference Range Interpretation Comments Hgb (test code = Hgb) 10.2 14.0-18.0 [facility] CentralIzmeanpQHLYUVZFEK4481-49-65 10:56:00 Test Item Value Reference Range Interpretation Comments Hct (test code = Hct) 29.9 42.0-54.0 [facility] CentralUitamlhGPNKJUNDUI6821-14-07 10:56:00 Test Item Value Reference Range Interpretation Comments MCV (test code = MCV) 88.7 80.0-94.0 [facility] CentralHzmtpqfQBGDLZLCGQ6373-21-61 10:56:00 Test Item Value Reference Range Interpretation Comments MCH (test code = MCH) 30.1 pg 27.0-31.0 [facility] CentralXsbrshnHJCVCJOUAF2404-61-25 10:56:00 Test Item Value Reference Range Interpretation Comments MCHC (test code = MCHC) 33.9 32.0-36.0 [facility] CentralIqnhdqaTFOZAFDIYI8183-44-04 10:56:00 Test Item Value Reference Range Interpretation Comments RDW (test code = RDW) 13.7 11.5-14.5 [facility] CentralGuxdtmeAOGERIVYBS7869-90-67 10:56:00 Test Item Value Reference Range Interpretation Comments Platelet (test code = Platelet) 294 133-450 [facility] CentralPbkjnxkVMBAVXVTRI0436-15-23 10:56:00 Test Item Value Reference Range Interpretation Comments MPV (test code = MPV) 6.7 7.4-10.4 [facility] CentralWbpqvclBEUDUVBDMH7183-18-52 10:56:00 Test Item Value Reference Range Interpretation Comments Segs (test code = Segs) 79.5 45.0-75.0 [facility] CentralThphivcEUOCCGSJUP8924-61-68 10:56:00 Test Item Value Reference Range Interpretation Comments Lymphocytes (test code = Lymphocytes) 12.8 20.0-40.0 [facility] CentralXsueonlLHLBBUOZJQ6735-20-95 10:56:00 Test Item Value Reference Range Interpretation Comments Monocytes (test code = Monocytes) 6.3 2.0-12.0 [facility] CentralQiuveoxXGHQKSXVBU8726-13-42 10:56:00 Test Item Value Reference Range Interpretation Comments Eosinophils (test code = 0.6 See_Comment [A utomated message] The Eosinophils) system which ge nerated this result tra nsmitted reference range : <=4.0. The reference r yared was not used to int erpret this result as normal/abnormal . [facility] CentralUafjlytKQMFZUHURO1344-84-54 10:56:00 Test Item Value Reference Range Interpretation Comments Basophils (test code = 0.8 See_Comment [Aut omated message] The Basophils) system which ge nerated this result tra nsmitted reference range : <=1.0. The reference r yared was not used to int erpret this result as normal/abnormal . [facility] CentralMehdeexPVBOWCRGQN0472-05-67 10:56:00 Test Item Value Reference Range Interpretation Comments Neutrophils # (test code = Neutrophils 6.8 1.5-8.1 #) [facility] CentralCworwtsOCZJIVXDJV1537-14-11 10:56:00 Test Item Value Reference Range Interpretation Comments Lymphocytes # (test code = Lymphocytes 1.1 1.0-5.5 #) [facility] CentralLsomukeHQNSKSZDWY5249-07-60 10:56:00 Test Item Value Reference Range Interpretation Comments Monocytes # (test code 0.5 See_Comment [Aut omated message] The = Monocytes #) system which generated this result tra nsmitted reference range : <=0.8. The reference r yared was not used to int erpret this result as normal/abnormal . [facility] CentralHdjpuqfKOCSALITGZ5677-43-36 10:56:00 Test Item Value Reference Range Interpretation Comments Basophils # (test code 0.1 See_Comment [Aut omated message] The = Basophils #) system which generated this result tra nsmitted reference range : <=0.2. The reference r yared was not used to int erpret this result as normal/abnormal . [facility]2019-11-11 10:14:00 Test Item Value Reference Range Interpretation Comments Glucose Lvl (test code = Glucose Lvl) 105 70-99 [facility]2019-11-11 10:14:00 Test Item Value Reference Range Interpretation Comments BUN (test code = BUN) 18 7-22 [facility]2019-11-11 10:14:00 Test Item Value Reference Range Interpretation Comments Creatinine Lvl (test code = Creatinine 7.09 0.50-1.40 Lvl) [facility]2019-11-11 10:14:00 Test Item Value Reference Range Interpretation Comments Sodium Lvl (test code = Sodium Lvl) 138 135-145 [facility]2019-11-11 10:14:00 Test Item Value Reference Range Interpretation Comments Potassium Lvl (test code = Potassium 3.6 3.5-5.1 Lvl) [facility]2019-11-11 10:14:00 Test Item Value Reference Range Interpretation Comments Chloride Lvl (test code = Chloride Lvl) 100 95-109 [facility]2019-11-11 10:14:00 Test Item Value Reference Range Interpretation Comments CO2 (test code = CO2) 28 24-32 [facility]2019-11-11 10:14:00 Test Item Value Reference Range Interpretation Comments AGAP (test code = AGAP) 13.6 10.0-20.0 [facility]2019-11-11 10:14:00 Test Item Value Reference Range Interpretation Comments Calcium Lvl (test code = Calcium Lvl) 9.5 8.5-10.5 [facility]2019-11-11 10:14:00 Test Item Value Reference Range Interpretation Comments eGFR (test code = eGFR) 8 [facility] CentralEjewprkAPOOPXVSOP8787-62-97 10:14:00 Test Item Value Reference Range Interpretation Comments WBC (test code = WBC) 7.7 3.7-10.4 [facility] CentralZmnpmjpNAXJCMWSAM2019-08-02 10:14:00 Test Item Value Reference Range Interpretation Comments RBC (test code = RBC) 3.61 4.70-6.10 [facility] CentralLbboqteLVWZZTPOKX6020-01-66 10:14:00 Test Item Value Reference Range Interpretation Comments Hgb (test code = Hgb) 10.8 14.0-18.0 [facility] CentralAyxqabeLEENGHDKYJ8394-40-19 10:14:00 Test Item Value Reference Range Interpretation Comments Hct (test code = Hct) 31.7 42.0-54.0 [facility] CentralDfofmzzKDJVHSZNRB8799-55-43 10:14:00 Test Item Value Reference Range Interpretation Comments MCV (test code = MCV) 87.7 80.0-94.0 [facility] CentralPpzfcfgPDLEYIDGCJ0710-60-38 10:14:00 Test Item Value Reference Range Interpretation Comments MCH (test code = MCH) 30.0 pg 27.0-31.0 [facility] CentralCbuikvoFGCIUXVXCL5751-39-69 10:14:00 Test Item Value Reference Range Interpretation Comments MCHC (test code = MCHC) 34.2 32.0-36.0 [facility] CentralYdwsjehDVVPANIYOM3727-91-48 10:14:00 Test Item Value Reference Range Interpretation Comments RDW (test code = RDW) 14.0 11.5-14.5 [facility] CentralUanpfteODRTUKKERJ0936-16-34 10:14:00 Test Item Value Reference Range Interpretation Comments Platelet (test code = Platelet) 292 133-450 [facility] CentralBquurguWEUKUEKWJH5315-01-32 10:14:00 Test Item Value Reference Range Interpretation Comments MPV (test code = MPV) 7.0 7.4-10.4 [facility] CentralNyoihfnJZOUNKQJYR0951-10-17 10:14:00 Test Item Value Reference Range Interpretation Comments Segs (test code = Segs) 75.0 45.0-75.0 [facility] CentralWuqmqrvPGZNYPAEEO5644-85-73 10:14:00 Test Item Value Reference Range Interpretation Comments Lymphocytes (test code = Lymphocytes) 15.4 20.0-40.0 [facility] CentralFmbxtthDRZKYRSMZY9224-46-80 10:14:00 Test Item Value Reference Range Interpretation Comments Monocytes (test code = Monocytes) 7.1 2.0-12.0 [facility] CentralSxfckfpHSQLXVHUPZ6212-43-99 10:14:00 Test Item Value Reference Range Interpretation Comments Eosinophils (test code = 1.4 See_Comment [A utomated message] The Eosinophils) system which ge nerated this result tra nsmitted reference range : <=4.0. The reference r yared was not used to int erpret this result as normal/abnormal . [facility] CentralOtrlwlbRIVSKFVSAW3386-62-71 10:14:00 Test Item Value Reference Range Interpretation Comments Basophils (test code = 1.1 See_Comment [Aut omated message] The Basophils) system which ge nerated this result tra nsmitted reference range : <=1.0. The reference r yared was not used to int erpret this result as normal/abnormal . [facility] CentralDcminlzQGDLUNQLQQ1822-65-42 10:14:00 Test Item Value Reference Range Interpretation Comments Neutrophils # (test code = Neutrophils 5.8 1.5-8.1 #) [facility] CentralChcgkjyJFBFPQVJQE6869-94-18 10:14:00 Test Item Value Reference Range Interpretation Comments Lymphocytes # (test code = Lymphocytes 1.2 1.0-5.5 #) [facility] CentralGejqkuoWCKFSSOGPR6300-39-98 10:14:00 Test Item Value Reference Range Interpretation Comments Monocytes # (test code 0.5 See_Comment [Aut omated message] The = Monocytes #) system which generated this result tra nsmitted reference range : <=0.8. The reference r yared was not used to int erpret this result as normal/abnormal . [facility] CentralMgjaengVOYWBVZWDD6573-87-46 10:14:00 Test Item Value Reference Range Interpretation Comments Eosinophils # (test code 0.1 See_Comment [A utomated message] The = Eosinophils #) system whic h generated this result tra nsmitted reference range : <=0.5. The reference r yared was not used to int erpret this result as normal/abnormal . [facility] CentralUainbeeVNVFSZCIIQ2768-88-57 10:14:00 Test Item Value Reference Range Interpretation Comments Basophils # (test code 0.1 See_Comment [Aut omated message] The = Basophils #) system which generated this result tra nsmitted reference range : <=0.2. The reference r yared was not used to int erpret this result as normal/abnormal . [facility]2019-11-11 10:14:00 Test Item Value Reference Range Interpretation Comments Glucose Lvl (test code = Glucose Lvl) 105 70-99 [facility]2019-11-11 10:14:00 Test Item Value Reference Range Interpretation Comments BUN (test code = BUN) 18 7-22 [facility]2019-11-11 10:14:00 Test Item Value Reference Range Interpretation Comments Creatinine Lvl (test code = Creatinine 7.09 0.50-1.40 Lvl) [facility]2019-11-11 10:14:00 Test Item Value Reference Range Interpretation Comments Sodium Lvl (test code = Sodium Lvl) 138 135-145 [facility]2019-11-11 10:14:00 Test Item Value Reference Range Interpretation Comments Potassium Lvl (test code = Potassium 3.6 3.5-5.1 Lvl) [facility]2019-11-11 10:14:00 Test Item Value Reference Range Interpretation Comments Chloride Lvl (test code = Chloride Lvl) 100 95-109 [facility]2019-11-11 10:14:00 Test Item Value Reference Range Interpretation Comments CO2 (test code = CO2) 28 24-32 [facility]2019-11-11 10:14:00 Test Item Value Reference Range Interpretation Comments AGAP (test code = AGAP) 13.6 10.0-20.0 [facility]2019-11-11 10:14:00 Test Item Value Reference Range Interpretation Comments Calcium Lvl (test code = Calcium Lvl) 9.5 8.5-10.5 [facility]2019-11-11 10:14:00 Test Item Value Reference Range Interpretation Comments eGFR (test code = eGFR) 8 [facility] CentralKzvstpoVRGKGILQBB2367-96-37 10:14:00 Test Item Value Reference Range Interpretation Comments WBC (test code = WBC) 7.7 3.7-10.4 [facility] CentralKotfmzfIGRCEOUJVN9523-93-63 10:14:00 Test Item Value Reference Range Interpretation Comments RBC (test code = RBC) 3.61 4.70-6.10 [facility] CentralOaopaqiKRILOPZSOI6790-77-73 10:14:00 Test Item Value Reference Range Interpretation Comments Hgb (test code = Hgb) 10.8 14.0-18.0 [facility] CentralClsdqjwZCBCYHZMKK8500-70-83 10:14:00 Test Item Value Reference Range Interpretation Comments Hct (test code = Hct) 31.7 42.0-54.0 [facility] CentralLampjfgWGLKGDRQIJ2353-34-05 10:14:00 Test Item Value Reference Range Interpretation Comments MCV (test code = MCV) 87.7 80.0-94.0 [facility] CentralEmzgekwOKDFXPFOXS0082-85-01 10:14:00 Test Item Value Reference Range Interpretation Comments MCH (test code = MCH) 30.0 pg 27.0-31.0 [facility] CentralBkwnhvyHPOGBTRDPJ3443-30-50 10:14:00 Test Item Value Reference Range Interpretation Comments MCHC (test code = MCHC) 34.2 32.0-36.0 [facility] CentralVkmwadfHNZYTPPYWW2259-33-80 10:14:00 Test Item Value Reference Range Interpretation Comments RDW (test code = RDW) 14.0 11.5-14.5 [facility] CentralAzweoriSXXVDMSGYW6594-32-12 10:14:00 Test Item Value Reference Range Interpretation Comments Platelet (test code = Platelet) 292 133-450 [facility] CentralPwwmzpcXIFLYNYUDU4352-65-13 10:14:00 Test Item Value Reference Range Interpretation Comments MPV (test code = MPV) 7.0 7.4-10.4 [facility] CentralGbsspwxYJQMLQZLDJ8627-00-76 10:14:00 Test Item Value Reference Range Interpretation Comments Segs (test code = Segs) 75.0 45.0-75.0 [facility] CentralUkseedpAXKBYYAFZD1696-40-85 10:14:00 Test Item Value Reference Range Interpretation Comments Lymphocytes (test code = Lymphocytes) 15.4 20.0-40.0 [facility] CentralAgftfmpNZZQOUNJOJ1253-57-55 10:14:00 Test Item Value Reference Range Interpretation Comments Monocytes (test code = Monocytes) 7.1 2.0-12.0 [facility] CentralYbqquodJGNPFDHWPJ5932-23-89 10:14:00 Test Item Value Reference Range Interpretation Comments Eosinophils (test code = 1.4 See_Comment [A utomated message] The Eosinophils) system which ge nerated this result tra nsmitted reference range : <=4.0. The reference r yared was not used to int erpret this result as normal/abnormal . [facility] CentralIhttcwkZFSUDOJAJV1996-05-81 10:14:00 Test Item Value Reference Range Interpretation Comments Basophils (test code = 1.1 See_Comment [Aut omated message] The Basophils) system which ge nerated this result tra nsmitted reference range : <=1.0. The reference r yared was not used to int erpret this result as normal/abnormal . [facility] CentralOhraavwOOXXQXNBQM4992-57-21 10:14:00 Test Item Value Reference Range Interpretation Comments Neutrophils # (test code = Neutrophils 5.8 1.5-8.1 #) [facility] CentralImuaqrtCJWIWGVZMA7458-36-65 10:14:00 Test Item Value Reference Range Interpretation Comments Lymphocytes # (test code = Lymphocytes 1.2 1.0-5.5 #) [facility] CentralOrxxbwzFLVJNHQLBY5379-71-64 10:14:00 Test Item Value Reference Range Interpretation Comments Monocytes # (test code 0.5 See_Comment [Aut omated message] The = Monocytes #) system which generated this result tra nsmitted reference range : <=0.8. The reference r yared was not used to int erpret this result as normal/abnormal . [facility] CentralXmfmfngFPLQOXBZJU0178-08-19 10:14:00 Test Item Value Reference Range Interpretation Comments Eosinophils # (test code 0.1 See_Comment [A utomated message] The = Eosinophils #) system whic h generated this result tra nsmitted reference range : <=0.5. The reference r yared was not used to int erpret this result as normal/abnormal . [facility] CentralRdihrmfXUZQDLSOVR8932-52-92 10:14:00 Test Item Value Reference Range Interpretation Comments Basophils # (test code 0.1 See_Comment [Aut omated message] The = Basophils #) system which generated this result tra nsmitted reference range : <=0.2. The reference r yared was not used to int erpret this result as normal/abnormal . [facility]2019-11-11 10:14:00 Test Item Value Reference Range Interpretation Comments Glucose Lvl (test code = Glucose Lvl) 105 70-99 [facility]2019-11-11 10:14:00 Test Item Value Reference Range Interpretation Comments BUN (test code = BUN) 18 7-22 [facility]2019-11-11 10:14:00 Test Item Value Reference Range Interpretation Comments Creatinine Lvl (test code = Creatinine 7.09 0.50-1.40 Lvl) [facility]2019-11-11 10:14:00 Test Item Value Reference Range Interpretation Comments Sodium Lvl (test code = Sodium Lvl) 138 135-145 [facility]2019-11-11 10:14:00 Test Item Value Reference Range Interpretation Comments Potassium Lvl (test code = Potassium 3.6 3.5-5.1 Lvl) [facility]2019-11-11 10:14:00 Test Item Value Reference Range Interpretation Comments Chloride Lvl (test code = Chloride Lvl) 100 95-109 [facility]2019-11-11 10:14:00 Test Item Value Reference Range Interpretation Comments CO2 (test code = CO2) 28 24-32 [facility]2019-11-11 10:14:00 Test Item Value Reference Range Interpretation Comments AGAP (test code = AGAP) 13.6 10.0-20.0 [facility]2019-11-11 10:14:00 Test Item Value Reference Range Interpretation Comments Calcium Lvl (test code = Calcium Lvl) 9.5 8.5-10.5 [facility]2019-11-11 10:14:00 Test Item Value Reference Range Interpretation Comments eGFR (test code = eGFR) 8 [facility] CentralOfkxcquWISFTPYMQE5116-68-59 10:14:00 Test Item Value Reference Range Interpretation Comments WBC (test code = WBC) 7.7 3.7-10.4 [facility] CentralXowdrtrCEGWXJXYSD8544-07-66 10:14:00 Test Item Value Reference Range Interpretation Comments RBC (test code = RBC) 3.61 4.70-6.10 [facility] CentralPviqjbkMELLQZLDYW2934-02-29 10:14:00 Test Item Value Reference Range Interpretation Comments Hgb (test code = Hgb) 10.8 14.0-18.0 [facility] CentralGgfmftfTRXNSMLHKP5940-32-23 10:14:00 Test Item Value Reference Range Interpretation Comments Hct (test code = Hct) 31.7 42.0-54.0 [facility] CentralOaceadrMLIZPJUQIY1667-77-34 10:14:00 Test Item Value Reference Range Interpretation Comments MCV (test code = MCV) 87.7 80.0-94.0 [facility] CentralUytxdrqHFYEMQTWDF1196-30-75 10:14:00 Test Item Value Reference Range Interpretation Comments MCH (test code = MCH) 30.0 pg 27.0-31.0 [facility] CentralLqnsusfOLIEEGNGDF7257-10-72 10:14:00 Test Item Value Reference Range Interpretation Comments MCHC (test code = MCHC) 34.2 32.0-36.0 [facility] CentralJgtmhbmPHLZMODDRR2459-13-88 10:14:00 Test Item Value Reference Range Interpretation Comments RDW (test code = RDW) 14.0 11.5-14.5 [facility] CentralUfayesnYAGFOLNEMO0141-43-13 10:14:00 Test Item Value Reference Range Interpretation Comments Platelet (test code = Platelet) 292 133-450 [facility] CentralGvrmsieVKRENROEFC3000-78-47 10:14:00 Test Item Value Reference Range Interpretation Comments MPV (test code = MPV) 7.0 7.4-10.4 [facility] CentralJbqnwxfKQWIDYCCIJ3052-35-88 10:14:00 Test Item Value Reference Range Interpretation Comments Segs (test code = Segs) 75.0 45.0-75.0 [facility] CentralXbiznvfOEBAZKWKOF1959-58-36 10:14:00 Test Item Value Reference Range Interpretation Comments Lymphocytes (test code = Lymphocytes) 15.4 20.0-40.0 [facility] CentralUibiqsrQPESFJODOI7525-57-59 10:14:00 Test Item Value Reference Range Interpretation Comments Monocytes (test code = Monocytes) 7.1 2.0-12.0 [facility] CentralMbvpcosZOBMFDMDFN4306-41-72 10:14:00 Test Item Value Reference Range Interpretation Comments Eosinophils (test code = 1.4 See_Comment [A utomated message] The Eosinophils) system which ge nerated this result tra nsmitted reference range : <=4.0. The reference r yared was not used to int erpret this result as normal/abnormal . [facility] CentralLtvcboiYIMUULHQJS0738-90-05 10:14:00 Test Item Value Reference Range Interpretation Comments Basophils (test code = 1.1 See_Comment [Aut omated message] The Basophils) system which ge nerated this result tra nsmitted reference range : <=1.0. The reference r yared was not used to int erpret this result as normal/abnormal . [facility] CentralPdltxtmLKCFWAXGRG0679-96-37 10:14:00 Test Item Value Reference Range Interpretation Comments Neutrophils # (test code = Neutrophils 5.8 1.5-8.1 #) [facility] CentralQxxpkyaGXWHHBMOKA0635-99-15 10:14:00 Test Item Value Reference Range Interpretation Comments Lymphocytes # (test code = Lymphocytes 1.2 1.0-5.5 #) [facility] CentralFtjcxloZNTCZRDXUR9502-82-14 10:14:00 Test Item Value Reference Range Interpretation Comments Monocytes # (test code 0.5 See_Comment [Aut omated message] The = Monocytes #) system which generated this result tra nsmitted reference range : <=0.8. The reference r yared was not used to int erpret this result as normal/abnormal . [facility] CentralAwdmjydZAKFVUBIQX8799-79-11 10:14:00 Test Item Value Reference Range Interpretation Comments Eosinophils # (test code 0.1 See_Comment [A utomated message] The = Eosinophils #) system whic h generated this result tra nsmitted reference range : <=0.5. The reference r yared was not used to int erpret this result as normal/abnormal . [facility] CentralUhgtwbjQPCUHGTSXP8569-13-16 10:14:00 Test Item Value Reference Range Interpretation Comments Basophils # (test code 0.1 See_Comment [Aut omated message] The = Basophils #) system which generated this result tra nsmitted reference range : <=0.2. The reference r yared was not used to int erpret this result as normal/abnormal . [facility]2019-11-10 10:24:00 Test Item Value Reference Range Interpretation Comments Glucose Lvl (test code = Glucose Lvl) 106 70-99 [facility]2019-11-10 10:24:00 Test Item Value Reference Range Interpretation Comments BUN (test code = BUN) 34 7-22 [facility]2019-11-10 10:24:00 Test Item Value Reference Range Interpretation Comments Creatinine Lvl (test code = Creatinine 11.00 0.50-1.40 Lvl) [facility]2019-11-10 10:24:00 Test Item Value Reference Range Interpretation Comments Sodium Lvl (test code = Sodium Lvl) 139 135-145 [facility]2019-11-10 10:24:00 Test Item Value Reference Range Interpretation Comments Potassium Lvl (test code = Potassium 3.6 3.5-5.1 Lvl) [facility]2019-11-10 10:24:00 Test Item Value Reference Range Interpretation Comments Chloride Lvl (test code = Chloride Lvl) 103 95-109 [facility]2019-11-10 10:24:00 Test Item Value Reference Range Interpretation Comments CO2 (test code = CO2) 28 24-32 [facility]2019-11-10 10:24:00 Test Item Value Reference Range Interpretation Comments AGAP (test code = AGAP) 11.6 10.0-20.0 [facility]2019-11-10 10:24:00 Test Item Value Reference Range Interpretation Comments Calcium Lvl (test code = Calcium Lvl) 9.0 8.5-10.5 [facility]2019-11-10 10:24:00 Test Item Value Reference Range Interpretation Comments eGFR (test code = eGFR) 5 [facility] CentralCumbnsmWJXJKVJHHM1223-07-72 10:24:00 Test Item Value Reference Range Interpretation Comments WBC (test code = WBC) 6.9 3.7-10.4 [facility] CentralJjagrbfKSFQQOTIGT0096-55-02 10:24:00 Test Item Value Reference Range Interpretation Comments RBC (test code = RBC) 3.13 4.70-6.10 [facility] CentralEwzoalgBUDDLASVGT5071-13-46 10:24:00 Test Item Value Reference Range Interpretation Comments Hgb (test code = Hgb) 9.3 14.0-18.0 [facility] CentralOmelnvcWHEUYVKWKZ9149-86-30 10:24:00 Test Item Value Reference Range Interpretation Comments Hct (test code = Hct) 27.4 42.0-54.0 [facility] CentralKzmfkwsBQFBDROYFB2068-36-72 10:24:00 Test Item Value Reference Range Interpretation Comments MCV (test code = MCV) 87.7 80.0-94.0 [facility] CentralZpsrdrgHMJBXLYCCG9660-29-90 10:24:00 Test Item Value Reference Range Interpretation Comments MCH (test code = MCH) 29.6 pg 27.0-31.0 [facility] CentralEezatooYQLRLWSJPJ4279-16-78 10:24:00 Test Item Value Reference Range Interpretation Comments MCHC (test code = MCHC) 33.8 32.0-36.0 [facility] CentralSlqiynaJBGTSCZGVO2548-00-32 10:24:00 Test Item Value Reference Range Interpretation Comments RDW (test code = RDW) 14.0 11.5-14.5 [facility] CentralKhlhzwqMTNSQAUJLN9983-35-06 10:24:00 Test Item Value Reference Range Interpretation Comments Platelet (test code = Platelet) 236 133-450 [facility] CentralPuiypklDMTULXXEPP5648-45-69 10:24:00 Test Item Value Reference Range Interpretation Comments MPV (test code = MPV) 6.9 7.4-10.4 [facility] CentralMoxhveuJZBUUCDGIB5367-67-81 10:24:00 Test Item Value Reference Range Interpretation Comments Segs (test code = Segs) 78.2 45.0-75.0 [facility] CentralEnqarcnEVYZWUNDAU2894-67-13 10:24:00 Test Item Value Reference Range Interpretation Comments Lymphocytes (test code = Lymphocytes) 12.2 20.0-40.0 [facility] CentralInukdveCIFDIPBJOW7542-89-08 10:24:00 Test Item Value Reference Range Interpretation Comments Monocytes (test code = Monocytes) 6.6 2.0-12.0 [facility] CentralHeqskjoWWWRLPLJJM8453-07-13 10:24:00 Test Item Value Reference Range Interpretation Comments Eosinophils (test code = 2.4 See_Comment [A utomated message] The Eosinophils) system which ge nerated this result tra nsmitted reference range : <=4.0. The reference r yared was not used to int erpret this result as normal/abnormal . [facility] CentralRovusdmGJTAEHBPIJ4071-66-03 10:24:00 Test Item Value Reference Range Interpretation Comments Basophils (test code = 0.6 See_Comment [Aut omated message] The Basophils) system which ge nerated this result tra nsmitted reference range : <=1.0. The reference r yared was not used to int erpret this result as normal/abnormal . [facility] CentralHdarhjgPPWOSEJZCL9472-26-96 10:24:00 Test Item Value Reference Range Interpretation Comments Neutrophils # (test code = Neutrophils 5.4 1.5-8.1 #) [facility] CentralAxezmxmPNRCEZPOMF9781-55-96 10:24:00 Test Item Value Reference Range Interpretation Comments Lymphocytes # (test code = Lymphocytes 0.8 1.0-5.5 #) [facility] CentralThgndrgEBFKFVXXVD5863-80-99 10:24:00 Test Item Value Reference Range Interpretation Comments Monocytes # (test code 0.5 See_Comment [Aut omated message] The = Monocytes #) system which generated this result tra nsmitted reference range : <=0.8. The reference r yared was not used to int erpret this result as normal/abnormal . [facility] CentralMpzuordIGTLRYTOBM1194-24-82 10:24:00 Test Item Value Reference Range Interpretation Comments Eosinophils # (test code 0.2 See_Comment [A utomated message] The = Eosinophils #) system [employer] h generated this result tra nsmitted reference range : <=0.5. The reference r yared was not used to int erpret this result as normal/abnormal . [facility]2019-11-10 10:24:00 Test Item Value Reference Range Interpretation Comments Glucose Lvl (test code = Glucose Lvl) 106 70-99 [facility]2019-11-10 10:24:00 Test Item Value Reference Range Interpretation Comments BUN (test code = BUN) 34 7-22 [facility]2019-11-10 10:24:00 Test Item Value Reference Range Interpretation Comments Creatinine Lvl (test code = Creatinine 11.00 0.50-1.40 Lvl) [facility]2019-11-10 10:24:00 Test Item Value Reference Range Interpretation Comments Sodium Lvl (test code = Sodium Lvl) 139 135-145 [facility]2019-11-10 10:24:00 Test Item Value Reference Range Interpretation Comments Potassium Lvl (test code = Potassium 3.6 3.5-5.1 Lvl) [facility]2019-11-10 10:24:00 Test Item Value Reference Range Interpretation Comments Chloride Lvl (test code = Chloride Lvl) 103 95-109 [facility]2019-11-10 10:24:00 Test Item Value Reference Range Interpretation Comments CO2 (test code = CO2) 28 24-32 [facility]2019-11-10 10:24:00 Test Item Value Reference Range Interpretation Comments AGAP (test code = AGAP) 11.6 10.0-20.0 [facility]2019-11-10 10:24:00 Test Item Value Reference Range Interpretation Comments Calcium Lvl (test code = Calcium Lvl) 9.0 8.5-10.5 [facility]2019-11-10 10:24:00 Test Item Value Reference Range Interpretation Comments eGFR (test code = eGFR) 5 [facility] CentralRkxpiurDLXGMIKHUF8187-00-10 10:24:00 Test Item Value Reference Range Interpretation Comments WBC (test code = WBC) 6.9 3.7-10.4 [facility] CentralTaaxgzzPRNCRBCRCD3535-89-65 10:24:00 Test Item Value Reference Range Interpretation Comments RBC (test code = RBC) 3.13 4.70-6.10 [facility] CentralBqvgzifFEDEYZPVYN0570-43-61 10:24:00 Test Item Value Reference Range Interpretation Comments Hgb (test code = Hgb) 9.3 14.0-18.0 [facility] CentralJbbuzftOHWRTLAAMM0828-98-45 10:24:00 Test Item Value Reference Range Interpretation Comments Hct (test code = Hct) 27.4 42.0-54.0 [facility] CentralYhziabrBLDKUYASVY2185-75-81 10:24:00 Test Item Value Reference Range Interpretation Comments MCV (test code = MCV) 87.7 80.0-94.0 [facility] CentralLyxgltdCBXAHOVGLU7808-25-42 10:24:00 Test Item Value Reference Range Interpretation Comments MCH (test code = MCH) 29.6 pg 27.0-31.0 [facility] CentralOjiulrbKDGFJSIKIP7870-00-42 10:24:00 Test Item Value Reference Range Interpretation Comments MCHC (test code = MCHC) 33.8 32.0-36.0 [facility] CentralTvcdvxaSZULSGKHQG6349-93-90 10:24:00 Test Item Value Reference Range Interpretation Comments RDW (test code = RDW) 14.0 11.5-14.5 [facility] CentralCxywqbeJDNDQZBUOP9393-87-87 10:24:00 Test Item Value Reference Range Interpretation Comments Platelet (test code = Platelet) 236 133-450 [facility] CentralJfmeluvARQGYZUIWA3321-10-92 10:24:00 Test Item Value Reference Range Interpretation Comments MPV (test code = MPV) 6.9 7.4-10.4 [facility] CentralAlmiizmLKXXAFZMXA3875-89-52 10:24:00 Test Item Value Reference Range Interpretation Comments Segs (test code = Segs) 78.2 45.0-75.0 [facility] CentralWzedqybPYFKSZDSRG3611-13-92 10:24:00 Test Item Value Reference Range Interpretation Comments Lymphocytes (test code = Lymphocytes) 12.2 20.0-40.0 [facility] CentralXcjrpyqFVUSZDUWYG2032-21-55 10:24:00 Test Item Value Reference Range Interpretation Comments Monocytes (test code = Monocytes) 6.6 2.0-12.0 [facility] CentralMbvfnhgIULFKMAAMM8624-57-03 10:24:00 Test Item Value Reference Range Interpretation Comments Eosinophils (test code = 2.4 See_Comment [A utomated message] The Eosinophils) system which ge nerated this result tra nsmitted reference range : <=4.0. The reference r yared was not used to int erpret this result as normal/abnormal . [facility] CentralGiiorpgHGAVSANJBZ2255-80-34 10:24:00 Test Item Value Reference Range Interpretation Comments Basophils (test code = 0.6 See_Comment [Aut omated message] The Basophils) system which ge nerated this result tra nsmitted reference range : <=1.0. The reference r yared was not used to int erpret this result as normal/abnormal . [facility] CentralPyikuwoPMTHHMXIAV1660-85-44 10:24:00 Test Item Value Reference Range Interpretation Comments Neutrophils # (test code = Neutrophils 5.4 1.5-8.1 #) [facility] CentralRllbclqLAPRDTAJMD2043-38-01 10:24:00 Test Item Value Reference Range Interpretation Comments Lymphocytes # (test code = Lymphocytes 0.8 1.0-5.5 #) [facility] CentralAxdwoftYKXHXVSCRR9057-18-59 10:24:00 Test Item Value Reference Range Interpretation Comments Monocytes # (test code 0.5 See_Comment [Aut omated message] The = Monocytes #) system which generated this result tra nsmitted reference range : <=0.8. The reference r yared was not used to int erpret this result as normal/abnormal . [facility] CentralBfqaqumCUBWAIZRWV1641-06-19 10:24:00 Test Item Value Reference Range Interpretation Comments Eosinophils # (test code 0.2 See_Comment [A utomated message] The = Eosinophils #) system whic h generated this result tra nsmitted reference range : <=0.5. The reference r yared was not used to int erpret this result as normal/abnormal . [facility]2019-11-10 10:24:00 Test Item Value Reference Range Interpretation Comments Glucose Lvl (test code = Glucose Lvl) 106 70-99 [facility]2019-11-10 10:24:00 Test Item Value Reference Range Interpretation Comments BUN (test code = BUN) 34 7-22 [facility]2019-11-10 10:24:00 Test Item Value Reference Range Interpretation Comments Creatinine Lvl (test code = Creatinine 11.00 0.50-1.40 Lvl) [facility]2019-11-10 10:24:00 Test Item Value Reference Range Interpretation Comments Sodium Lvl (test code = Sodium Lvl) 139 135-145 [facility]2019-11-10 10:24:00 Test Item Value Reference Range Interpretation Comments Potassium Lvl (test code = Potassium 3.6 3.5-5.1 Lvl) [facility]2019-11-10 10:24:00 Test Item Value Reference Range Interpretation Comments Chloride Lvl (test code = Chloride Lvl) 103 95-109 [facility]2019-11-10 10:24:00 Test Item Value Reference Range Interpretation Comments CO2 (test code = CO2) 28 24-32 [facility]2019-11-10 10:24:00 Test Item Value Reference Range Interpretation Comments AGAP (test code = AGAP) 11.6 10.0-20.0 [facility]2019-11-10 10:24:00 Test Item Value Reference Range Interpretation Comments Calcium Lvl (test code = Calcium Lvl) 9.0 8.5-10.5 [facility]2019-11-10 10:24:00 Test Item Value Reference Range Interpretation Comments eGFR (test code = eGFR) 5 [facility] CentralEwivbhiAPFGHPUNHI8872-57-01 10:24:00 Test Item Value Reference Range Interpretation Comments WBC (test code = WBC) 6.9 3.7-10.4 [facility] CentralEqrsjdnEFBVKHQDRJ1044-72-92 10:24:00 Test Item Value Reference Range Interpretation Comments RBC (test code = RBC) 3.13 4.70-6.10 [facility] CentralPcftifqLWNCZGTPBN3432-99-02 10:24:00 Test Item Value Reference Range Interpretation Comments Hgb (test code = Hgb) 9.3 14.0-18.0 [facility] CentralZkiwikyOAGOYNSOTD3633-30-13 10:24:00 Test Item Value Reference Range Interpretation Comments Hct (test code = Hct) 27.4 42.0-54.0 [facility] CentralOzmfifrYGQOPHCDEG2367-51-86 10:24:00 Test Item Value Reference Range Interpretation Comments MCV (test code = MCV) 87.7 80.0-94.0 [facility] CentralUssuupmNDEGZMYOXW2782-60-47 10:24:00 Test Item Value Reference Range Interpretation Comments MCH (test code = MCH) 29.6 pg 27.0-31.0 [facility] CentralKhvcecdPGMKHYLUWY1607-96-83 10:24:00 Test Item Value Reference Range Interpretation Comments MCHC (test code = MCHC) 33.8 32.0-36.0 [facility] CentralQvsyiiuPMJGCRIWIB3292-01-14 10:24:00 Test Item Value Reference Range Interpretation Comments RDW (test code = RDW) 14.0 11.5-14.5 [facility] CentralRttywjqLXXBANSGIQ8763-11-98 10:24:00 Test Item Value Reference Range Interpretation Comments Platelet (test code = Platelet) 236 133-450 [facility] CentralZiayqurJJMYTQBQHT3573-10-06 10:24:00 Test Item Value Reference Range Interpretation Comments MPV (test code = MPV) 6.9 7.4-10.4 [facility] CentralPnwnddlDJYJUMDUII4415-42-74 10:24:00 Test Item Value Reference Range Interpretation Comments Segs (test code = Segs) 78.2 45.0-75.0 [facility] CentralGguwrvcMAEQUIAPJF7794-41-57 10:24:00 Test Item Value Reference Range Interpretation Comments Lymphocytes (test code = Lymphocytes) 12.2 20.0-40.0 [facility] CentralJntmpluQHENBOUZCA3577-22-08 10:24:00 Test Item Value Reference Range Interpretation Comments Monocytes (test code = Monocytes) 6.6 2.0-12.0 [facility] CentralZpptwyfGYNNLKSASS8257-95-20 10:24:00 Test Item Value Reference Range Interpretation Comments Eosinophils (test code = 2.4 See_Comment [A utomated message] The Eosinophils) system which ge nerated this result tra nsmitted reference range : <=4.0. The reference r yared was not used to int erpret this result as normal/abnormal . [facility] CentralNngdnimIPGCOXCRRV4355-48-66 10:24:00 Test Item Value Reference Range Interpretation Comments Basophils (test code = 0.6 See_Comment [Aut omated message] The Basophils) system which ge nerated this result tra nsmitted reference range : <=1.0. The reference r yared was not used to int erpret this result as normal/abnormal . [facility] CentralEizmfpkJEMIZMRWLG5172-37-01 10:24:00 Test Item Value Reference Range Interpretation Comments Neutrophils # (test code = Neutrophils 5.4 1.5-8.1 #) [facility] CentralQsrtnwwFZOFDQCJLN2876-56-98 10:24:00 Test Item Value Reference Range Interpretation Comments Lymphocytes # (test code = Lymphocytes 0.8 1.0-5.5 #) [facility] CentralYhfpvpyUGZKOWNPRO8630-16-58 10:24:00 Test Item Value Reference Range Interpretation Comments Monocytes # (test code 0.5 See_Comment [Aut omated message] The = Monocytes #) system which generated this result tra nsmitted reference range : <=0.8. The reference r yared was not used to int erpret this result as normal/abnormal . [facility] CentralXhzjumoXBFGENKCKF0761-12-57 10:24:00 Test Item Value Reference Range Interpretation Comments Eosinophils # (test code 0.2 See_Comment [A utomated message] The = Eosinophils #) system whic h generated this result tra nsmitted reference range : <=0.5. The reference r yared was not used to int erpret this result as normal/abnormal . [facility]UfbfolqWWTTXKIUDZ2462-03-83 14:31:00 Test Item Value Reference Range Interpretation Comments Hep Bs Ag (test code Negative *NA*(08/17/19 = Hep Bs Ag) 8:31 AM) [facility] CenterZeyeyyqBHQFDTZOYH2665-24-34 14:31:00 Test Item Value Reference Range Interpretation Comments Hep Bs Ag (test code Negative *NA*(08/17/19 = Hep Bs Ag) 8:31 AM) [facility] CenterPfwlsylUTOEAEBXBB6871-10-48 14:31:00 Test Item Value Reference Range Interpretation Comments Hep Bs Ag (test code Negative *NA*(08/17/19 = Hep Bs Ag) 8:31 AM) [facility] CentralEubgfafVUFALWIZFJ3345-12-26 19:35:00 Test Item Value Reference Range Interpretation Comments PT (test code = PT) 12.2 s 12.0-14.7 [facility] CentralCekyylpGHVJIZCGAQ9024-99-11 19:35:00 Test Item Value Reference Range Interpretation Comments INR (test code = INR) 0.92 1 0.85-1.17 [facility] CentralAlszeufQVMHWEMYUI2751-00-40 19:35:00 Test Item Value Reference Range Interpretation Comments PTT (test code = PTT) 37.1 s 22.9-35.8 [facility] CentralLejtrotDEDWHKEEIS0006-77-62 19:35:00 Test Item Value Reference Range Interpretation Comments PT (test code = PT) 12.2 s 12.0-14.7 [facility] CentralHvgbtirYUBENDAIOP6296-30-14 19:35:00 Test Item Value Reference Range Interpretation Comments INR (test code = INR) 0.92 1 0.85-1.17 [facility] CentralDstdzhnSQXTDILUBZ3171-99-79 19:35:00 Test Item Value Reference Range Interpretation Comments PTT (test code = PTT) 37.1 s 22.9-35.8 [facility] CentralEoeomszROJHEGQWUM9266-01-04 19:35:00 Test Item Value Reference Range Interpretation Comments PT (test code = PT) 12.2 s 12.0-14.7 [facility] CentralPcpflnzQUGHIGTHHK9943-16-48 19:35:00 Test Item Value Reference Range Interpretation Comments INR (test code = INR) 0.92 1 0.85-1.17 [facility] CentralOaoaifmMVWEXHDDCB9632-57-90 19:35:00 Test Item Value Reference Range Interpretation Comments PTT (test code = PTT) 37.1 s 22.9-35.8 [facility]2019-06-30 10:20:00 Test Item Value Reference Range Interpretation Comments eGFR (test code = eGFR) 3 [facility]2019-06-30 10:20:00 Test Item Value Reference Range Interpretation Comments Glucose Lvl (test code = Glucose Lvl) 96 70-99 [facility]2019-06-30 10:20:00 Test Item Value Reference Range Interpretation Comments BUN (test code = BUN) 68 7-22 [facility]2019-06-30 10:20:00 Test Item Value Reference Range Interpretation Comments Calcium Lvl (test code = Calcium Lvl) 8.7 8.5-10.5 [facility]2019-06-30 10:20:00 Test Item Value Reference Range Interpretation Comments AGAP (test code = AGAP) 16.7 10.0-20.0 [facility]2019-06-30 10:20:00 Test Item Value Reference Range Interpretation Comments Sodium Lvl (test code = Sodium Lvl) 131 135-145 [facility]2019-06-30 10:20:00 Test Item Value Reference Range Interpretation Comments CO2 (test code = CO2) 25 24-32 [facility]2019-06-30 10:20:00 Test Item Value Reference Range Interpretation Comments Potassium Lvl (test code = Potassium 3.7 3.5-5.1 Lvl) [facility]2019-06-30 10:20:00 Test Item Value Reference Range Interpretation Comments Chloride Lvl (test code = Chloride Lvl) 93 95-109 [facility]2019-06-30 10:20:00 Test Item Value Reference Range Interpretation Comments Creatinine Lvl (test code = Creatinine 15.20 0.50-1.40 Lvl) [facility]2019-06-30 10:20:00 Test Item Value Reference Range Interpretation Comments eGFR (test code = eGFR) 3 [facility]2019-06-30 10:20:00 Test Item Value Reference Range Interpretation Comments Glucose Lvl (test code = Glucose Lvl) 96 70-99 [facility]2019-06-30 10:20:00 Test Item Value Reference Range Interpretation Comments BUN (test code = BUN) 68 7-22 [facility]2019-06-30 10:20:00 Test Item Value Reference Range Interpretation Comments Calcium Lvl (test code = Calcium Lvl) 8.7 8.5-10.5 [facility]2019-06-30 10:20:00 Test Item Value Reference Range Interpretation Comments AGAP (test code = AGAP) 16.7 10.0-20.0 [facility]2019-06-30 10:20:00 Test Item Value Reference Range Interpretation Comments Sodium Lvl (test code = Sodium Lvl) 131 135-145 [facility]2019-06-30 10:20:00 Test Item Value Reference Range Interpretation Comments CO2 (test code = CO2) 25 24-32 [facility]2019-06-30 10:20:00 Test Item Value Reference Range Interpretation Comments Potassium Lvl (test code = Potassium 3.7 3.5-5.1 Lvl) [facility]2019-06-30 10:20:00 Test Item Value Reference Range Interpretation Comments Chloride Lvl (test code = Chloride Lvl) 93 95-109 [facility]2019-06-30 10:20:00 Test Item Value Reference Range Interpretation Comments Creatinine Lvl (test code = Creatinine 15.20 0.50-1.40 Lvl) [facility]2019-06-30 10:20:00 Test Item Value Reference Range Interpretation Comments eGFR (test code = eGFR) 3 [facility]2019-06-30 10:20:00 Test Item Value Reference Range Interpretation Comments Glucose Lvl (test code = Glucose Lvl) 96 70-99 [facility]2019-06-30 10:20:00 Test Item Value Reference Range Interpretation Comments BUN (test code = BUN) 68 7-22 [facility]2019-06-30 10:20:00 Test Item Value Reference Range Interpretation Comments Calcium Lvl (test code = Calcium Lvl) 8.7 8.5-10.5 [facility]2019-06-30 10:20:00 Test Item Value Reference Range Interpretation Comments AGAP (test code = AGAP) 16.7 10.0-20.0 [facility]2019-06-30 10:20:00 Test Item Value Reference Range Interpretation Comments Sodium Lvl (test code = Sodium Lvl) 131 135-145 [facility]2019-06-30 10:20:00 Test Item Value Reference Range Interpretation Comments CO2 (test code = CO2) 25 24-32 [facility]2019-06-30 10:20:00 Test Item Value Reference Range Interpretation Comments Potassium Lvl (test code = Potassium 3.7 3.5-5.1 Lvl) [facility]2019-06-30 10:20:00 Test Item Value Reference Range Interpretation Comments Chloride Lvl (test code = Chloride Lvl) 93 95-109 [facility]2019-06-30 10:20:00 Test Item Value Reference Range Interpretation Comments Creatinine Lvl (test code = Creatinine 15.20 0.50-1.40 Lvl) [facility] HospitalCARDIAC [id number] 14:42:00 Test Item Value Reference Range Interpretation Comments Troponin-I (test code 0.03 See_Comment [Auto mated message] The = Troponin-I) system which g enerated this result transmit emerson reference range : <=0.40. The reference r yared was not used to interpr et this result as erinn l/abnormal. [facility] HospitalTrusted Hands NetworkDIAC [id number] 14:42:00 Test Item Value Reference Range Interpretation Comments Troponin-I (test code 0.03 See_Comment [Auto mated message] The = Troponin-I) system which g enerated this result transmit emerson reference range : <=0.40. The reference r yared was not used to interpr et this result as erinn l/abnormal. [facility] [id number] 14:42:00 Test Item Value Reference Range Interpretation Comments Troponin-I (test code 0.03 See_Comment [Auto mated message] The = Troponin-I) system which g enerated this result transmit emerson reference range : <=0.40. The reference r yared was not used to interpr et this result as erinn l/abnormal. [facility] HospitalGram Stain Cehtie0910-70-72 14:25:00 Test Item Value Reference Range Interpretation Comments Gram Stain Report Rare WBC's No Organisms (test code = Gram Seen Stain Report) [facility] HospitalCulture: Aspirate/Body Fluid/[id number] 14:25:00 Test Item Value Reference Range Interpretation Comments Culture: Aspirate/Body Fluid/Tissue No Growth (test code = Culture: Aspirate/Body Fluid/Tissue) [facility] Stain Cvtdoz5093-17-33 14:25:00 Test Item Value Reference Range Interpretation Comments Gram Stain Report Rare WBC's No Organisms (test code = Gram Seen Stain Report) [facility] HospitalCulture: Aspirate/Body Fluid/Usdhed8033-24-84 14:25:00 Test Item Value Reference Range Interpretation Comments Culture: Aspirate/Body Fluid/Tissue No Growth (test code = Culture: Aspirate/Body Fluid/Tissue) [facility] Stain Zhuord0338-42-63 14:25:00 Test Item Value Reference Range Interpretation Comments Gram Stain Report Rare WBC's No Organisms (test code = Gram Seen Stain Report) [facility] Aspirate/Body Fluid/Egpxkf8204-91-08 14:25:00 Test Item Value Reference Range Interpretation Comments Culture: Aspirate/Body Fluid/Tissue No Growth (test code = Culture: Aspirate/Body Fluid/Tissue) [facility] [id number] 08:16:00 Test Item Value Reference Range Interpretation Comments Vitamin B12 Lvl (test code = Vitamin [phone] B12 Lvl) [facility] [id number] 08:16:00 Test Item Value Reference Range Interpretation Comments Troponin-I (test code 0.04 See_Comment [Auto mated message] The = Troponin-I) system which g enerated this result transmit emerson reference range : <=0.40. The reference r yared was not used to interpr et this result as erinn l/abnormal. [facility]21[employer] [id number] 08:16:00 Test Item Value Reference Range Interpretation Comments Magnesium Lvl (test code = Magnesium 1.8 1.8-2.4 Lvl) [facility]2019-06-29 08:16:00 Test Item Value Reference Range Interpretation Comments eGFR (test code = eGFR) 3 [facility]2019-06-29 08:16:00 Test Item Value Reference Range Interpretation Comments A/G Ratio (test code = A/G Ratio) 0.6 1 0.7-1.6 [facility]2019-06-29 08:16:00 Test Item Value Reference Range Interpretation Comments B/C Ratio (test code = B/C Ratio) 4 1 6-25 [facility]2019-06-29 08:16:00 Test Item Value Reference Range Interpretation Comments Globulin (test code = Globulin) 3.4 2.7-4.2 [facility]2019-06-29 08:16:00 Test Item Value Reference Range Interpretation Comments Bili Total (test code = Bili Total) 0.4 0.2-1.3 [facility]2019-06-29 08:16:00 Test Item Value Reference Range Interpretation Comments AGAP (test code = AGAP) 18.3 10.0-20.0 [facility]2019-06-29 08:16:00 Test Item Value Reference Range Interpretation Comments Chloride Lvl (test code = Chloride Lvl) 93 95-109 [facility]2019-06-29 08:16:00 Test Item Value Reference Range Interpretation Comments CO2 (test code = CO2) 23 24-32 [facility]2019-06-29 08:16:00 Test Item Value Reference Range Interpretation Comments Calcium Lvl (test code = Calcium Lvl) 8.1 8.5-10.5 [facility]2019-06-29 08:16:00 Test Item Value Reference Range Interpretation Comments Glucose Lvl (test code = Glucose Lvl) 57 70-99 [facility]2019-06-29 08:16:00 Test Item Value Reference Range Interpretation Comments BUN (test code = BUN) 60 7-22 [facility]2019-06-29 08:16:00 Test Item Value Reference Range Interpretation Comments Sodium Lvl (test code = Sodium Lvl) 130 135-145 [facility]2019-06-29 08:16:00 Test Item Value Reference Range Interpretation Comments Creatinine Lvl (test code = Creatinine 15.90 0.50-1.40 Lvl) [facility]2019-06-29 08:16:00 Test Item Value Reference Range Interpretation Comments Potassium Lvl (test code = Potassium 4.3 3.5-5.1 Lvl) [facility]2019-06-29 08:16:00 Test Item Value Reference Range Interpretation Comments ALT (test code = ALT) 21 See_Comment [Auto mated message] The system which ge nerated this result transmit emerson reference range : <=65. The reference range was not used to interpr et this result as erinn l/abnormal. [facility]2019-06-29 08:16:00 Test Item Value Reference Range Interpretation Comments Alk Phos (test code = Alk Phos) 76 39-136 [facility]2019-06-29 08:16:00 Test Item Value Reference Range Interpretation Comments AST (test code = AST) 16 See_Comment [Auto mated message] The system which ge nerated this result transmit emerson reference range : <=37. The reference range was not used to interpr et this result as erinn l/abnormal. [facility]2019-06-29 08:16:00 Test Item Value Reference Range Interpretation Comments Total Protein (test code = Total 5.6 6.4-8.4 Protein) [facility]2019-06-29 08:16:00 Test Item Value Reference Range Interpretation Comments Albumin Lvl (test code = Albumin Lvl) 2.2 3.5-5.0 [facility] CentralAuzmogmUEJCHRPZNC9953-94-78 08:16:00 Test Item Value Reference Range Interpretation Comments PTT (test code = PTT) 41.5 s 22.9-35.8 [facility] CentralRnbesvhVOPXIEFUVK8504-58-32 08:16:00 Test Item Value Reference Range Interpretation Comments PT (test code = PT) 14.4 s 12.0-14.7 [facility] CentralPdzoyhiHKWEHIIHYY4269-74-70 08:16:00 Test Item Value Reference Range Interpretation Comments INR (test code = INR) 1.14 1 0.85-1.17 [facility] CentralZrjvdfvYTLLUHZLSN6611-97-08 08:16:00 Test Item Value Reference Range Interpretation Comments RDW (test code = RDW) 15.5 11.5-14.5 [facility] CentralAkgdesyEGZLFKFJOJ1400-13-38 08:16:00 Test Item Value Reference Range Interpretation Comments Platelet (test code = Platelet) 139 133-450 [facility] CentralHuhnqthEYFHLYUNXL6814-25-38 08:16:00 Test Item Value Reference Range Interpretation Comments MCH (test code = MCH) 28.7 pg 27.0-31.0 [facility] CentralNbvcbakFIQOAYKCIW5946-63-93 08:16:00 Test Item Value Reference Range Interpretation Comments MCHC (test code = MCHC) 34.2 32.0-36.0 [facility] CentralEfmahsfQSVPHVJKOM7176-92-99 08:16:00 Test Item Value Reference Range Interpretation Comments MCV (test code = MCV) 84.1 80.0-94.0 [facility] CentralPhiefcbNNAMZHLJWR0938-93-61 08:16:00 Test Item Value Reference Range Interpretation Comments Hgb (test code = Hgb) 11.4 14.0-18.0 [facility] CentralHaheqkcBCGUWKXNGR3997-33-21 08:16:00 Test Item Value Reference Range Interpretation Comments Hct (test code = Hct) 33.2 42.0-54.0 [facility] CentralUkypudbXJUVGGGZLL8981-51-77 08:16:00 Test Item Value Reference Range Interpretation Comments WBC (test code = WBC) 10.2 3.7-10.4 [facility] CentralYcovdfcJTBXMWFEIM1535-68-65 08:16:00 Test Item Value Reference Range Interpretation Comments RBC (test code = RBC) 3.95 4.70-6.10 [facility] CentralQkyvqjpBYMNPUIHYM0095-29-39 08:16:00 Test Item Value Reference Range Interpretation Comments MPV (test code = MPV) 8.3 7.4-10.4 [facility] CentralQayyokdZGKFSWGABE0005-33-75 08:16:00 Test Item Value Reference Range Interpretation Comments Segs (test code = Segs) 84.8 45.0-75.0 [facility] CentralAiinulkAIYAKCDSFC2071-24-60 08:16:00 Test Item Value Reference Range Interpretation Comments Basophils # (test code 0.1 See_Comment [Aut omated message] The = Basophils #) system which generated this result tra nsmitted reference range : <=0.2. The reference r yared was not used to int erpret this result as normal/abnormal . [facility] CentralHhvumxwYSPRNAPEAS7943-26-59 08:16:00 Test Item Value Reference Range Interpretation Comments Basophils (test code = 0.5 See_Comment [Aut omated message] The Basophils) system which ge nerated this result tra nsmitted reference range : <=1.0. The reference r yaerd was not used to int erpret this result as normal/abnormal . [facility] CentralCbswpszWCGJEJPODZ1272-22-44 08:16:00 Test Item Value Reference Range Interpretation Comments Eosinophils (test code = 1.2 See_Comment [A utomated message] The Eosinophils) system which ge nerated this result tra nsmitted reference range : <=4.0. The reference r yared was not used to int erpret this result as normal/abnormal . [facility] CentralDcxsrfnWBQYGVUHOS4786-14-22 08:16:00 Test Item Value Reference Range Interpretation Comments Monocytes (test code = Monocytes) 6.5 2.0-12.0 [facility] CentralNiobcaqQXZZFMRLYD0149-77-79 08:16:00 Test Item Value Reference Range Interpretation Comments Lymphocytes (test code = Lymphocytes) 7.0 20.0-40.0 [facility] CentralBhmjnboAVQLNPUUJS2757-12-59 08:16:00 Test Item Value Reference Range Interpretation Comments Eosinophils # (test code 0.1 See_Comment [A utomated message] The = Eosinophils #) system ic h generated this result tra nsmitted reference range : <=0.5. The reference r yared was not used to int erpret this result as normal/abnormal . [facility] CentralYflrjihMOOTGFHPAD7207-60-08 08:16:00 Test Item Value Reference Range Interpretation Comments Monocytes # (test code 0.7 See_Comment [Aut omated message] The = Monocytes #) system which generated this result tra nsmitted reference range : <=0.8. The reference r yared was not used to int erpret this result as normal/abnormal . [facility] HospitalUiltvsaOPFHUAEYSA6386-68-21 08:16:00 Test Item Value Reference Range Interpretation Comments Lymphocytes # (test code = Lymphocytes 0.7 1.0-5.5 #) [facility]VjegrfxTWHLZXPDKE3611-90-59 08:16:00 Test Item Value Reference Range Interpretation Comments Neutrophils # (test code = Neutrophils 8.7 1.5-8.1 #) [facility] KURXT2047-00-20 08:16:00 Test Item Value Reference Range Interpretation Comments Vitamin B12 Lvl (test code = Vitamin [phone] B12 Lvl) [facility] HospitalCARDIAC JPBEKIX0450-45-00 08:16:00 Test Item Value Reference Range Interpretation Comments Troponin-I (test code 0.04 See_Comment [Auto mated message] The = Troponin-I) system which g enerated this result transmit emerson reference range : <=0.40. The reference r yared was not used to interpr et this result as erinn l/abnormal. [facility] [id number] 08:16:00 Test Item Value Reference Range Interpretation Comments Magnesium Lvl (test code = Magnesium 1.8 1.8-2.4 Lvl) [facility]2019-06-29 08:16:00 Test Item Value Reference Range Interpretation Comments eGFR (test code = eGFR) 3 [facility]2019-06-29 08:16:00 Test Item Value Reference Range Interpretation Comments A/G Ratio (test code = A/G Ratio) 0.6 1 0.7-1.6 [facility]2019-06-29 08:16:00 Test Item Value Reference Range Interpretation Comments B/C Ratio (test code = B/C Ratio) 4 1 6-25 [facility]2019-06-29 08:16:00 Test Item Value Reference Range Interpretation Comments Globulin (test code = Globulin) 3.4 2.7-4.2 [facility]2019-06-29 08:16:00 Test Item Value Reference Range Interpretation Comments Bili Total (test code = Bili Total) 0.4 0.2-1.3 [facility]2019-06-29 08:16:00 Test Item Value Reference Range Interpretation Comments AGAP (test code = AGAP) 18.3 10.0-20.0 [facility]2019-06-29 08:16:00 Test Item Value Reference Range Interpretation Comments Chloride Lvl (test code = Chloride Lvl) 93 95-109 [facility]2019-06-29 08:16:00 Test Item Value Reference Range Interpretation Comments CO2 (test code = CO2) 23 24-32 [facility]2019-06-29 08:16:00 Test Item Value Reference Range Interpretation Comments Calcium Lvl (test code = Calcium Lvl) 8.1 8.5-10.5 [facility]2019-06-29 08:16:00 Test Item Value Reference Range Interpretation Comments Glucose Lvl (test code = Glucose Lvl) 57 70-99 [facility]2019-06-29 08:16:00 Test Item Value Reference Range Interpretation Comments BUN (test code = BUN) 60 7-22 [facility]2019-06-29 08:16:00 Test Item Value Reference Range Interpretation Comments Sodium Lvl (test code = Sodium Lvl) 130 135-145 [facility]2019-06-29 08:16:00 Test Item Value Reference Range Interpretation Comments Creatinine Lvl (test code = Creatinine 15.90 0.50-1.40 Lvl) [facility]2019-06-29 08:16:00 Test Item Value Reference Range Interpretation Comments Potassium Lvl (test code = Potassium 4.3 3.5-5.1 Lvl) [facility]2019-06-29 08:16:00 Test Item Value Reference Range Interpretation Comments ALT (test code = ALT) 21 See_Comment [Auto mated message] The system which ge nerated this result transmit emerson reference range : <=65. The reference range was not used to interpr et this result as erinn l/abnormal. [facility]2019-06-29 08:16:00 Test Item Value Reference Range Interpretation Comments Alk Phos (test code = Alk Phos) 76 39-136 [facility]2019-06-29 08:16:00 Test Item Value Reference Range Interpretation Comments AST (test code = AST) 16 See_Comment [Auto mated message] The system which ge nerated this result transmit emerson reference range : <=37. The reference range was not used to interpr et this result as erinn l/abnormal. [facility]2019-06-29 08:16:00 Test Item Value Reference Range Interpretation Comments Total Protein (test code = Total 5.6 6.4-8.4 Protein) [facility]2019-06-29 08:16:00 Test Item Value Reference Range Interpretation Comments Albumin Lvl (test code = Albumin Lvl) 2.2 3.5-5.0 [facility]PwdphjgOIIHCZNFHH0254-64-17 08:16:00 Test Item Value Reference Range Interpretation Comments PTT (test code = PTT) 41.5 s 22.9-35.8 [facility] CentralWdnckshSUYCOKQBQR0717-78-23 08:16:00 Test Item Value Reference Range Interpretation Comments PT (test code = PT) 14.4 s 12.0-14.7 [facility] CentralEakafkbYVGXNAICZR6485-28-59 08:16:00 Test Item Value Reference Range Interpretation Comments INR (test code = INR) 1.14 1 0.85-1.17 [facility] CentralYulmjseEUWRROXNZD5370-60-78 08:16:00 Test Item Value Reference Range Interpretation Comments RDW (test code = RDW) 15.5 11.5-14.5 [facility] CentralLkwxjkoZQNNCZXCBF7236-12-45 08:16:00 Test Item Value Reference Range Interpretation Comments Platelet (test code = Platelet) 139 133-450 [facility] CentralLofoltqLGCVFJBSMN1486-08-84 08:16:00 Test Item Value Reference Range Interpretation Comments MCH (test code = MCH) 28.7 pg 27.0-31.0 [facility] CentralMktryztIRTRYZURRP1085-18-34 08:16:00 Test Item Value Reference Range Interpretation Comments MCHC (test code = MCHC) 34.2 32.0-36.0 [facility] CentralQxxfpmlCJUVBQZPXY0702-36-74 08:16:00 Test Item Value Reference Range Interpretation Comments MCV (test code = MCV) 84.1 80.0-94.0 [facility] CentralHnisdaeXACYLVICKC0367-89-54 08:16:00 Test Item Value Reference Range Interpretation Comments Hgb (test code = Hgb) 11.4 14.0-18.0 [facility] CentralSfquzreVMZYBRYUCW6597-57-89 08:16:00 Test Item Value Reference Range Interpretation Comments Hct (test code = Hct) 33.2 42.0-54.0 [facility] CentralEmgazdvMTKBYEUYPU7726-62-16 08:16:00 Test Item Value Reference Range Interpretation Comments WBC (test code = WBC) 10.2 3.7-10.4 [facility] CentralEsclhxzRKFVOVHHWU8380-74-80 08:16:00 Test Item Value Reference Range Interpretation Comments RBC (test code = RBC) 3.95 4.70-6.10 [facility] CentralSrtltbtYTLDKSPGAH8141-46-63 08:16:00 Test Item Value Reference Range Interpretation Comments MPV (test code = MPV) 8.3 7.4-10.4 [facility] CentralDkcwunlCKUFBMKXGN0031-34-42 08:16:00 Test Item Value Reference Range Interpretation Comments Segs (test code = Segs) 84.8 45.0-75.0 [facility] CentralNklewfkLRHGTIAOCV3489-22-34 08:16:00 Test Item Value Reference Range Interpretation Comments Basophils # (test code 0.1 See_Comment [Aut omated message] The = Basophils #) system which generated this result tra nsmitted reference range : <=0.2. The reference r yared was not used to int erpret this result as normal/abnormal . [facility] CentralRbbwnvmLEPTHMRZXZ9233-79-92 08:16:00 Test Item Value Reference Range Interpretation Comments Basophils (test code = 0.5 See_Comment [Aut omated message] The Basophils) system which ge nerated this result tra nsmitted reference range : <=1.0. The reference r yared was not used to int erpret this result as normal/abnormal . [facility] CentralOcecfwkWEABLIFBOQ2491-98-32 08:16:00 Test Item Value Reference Range Interpretation Comments Eosinophils (test code = 1.2 See_Comment [A utomated message] The Eosinophils) system which ge nerated this result tra nsmitted reference range : <=4.0. The reference r yared was not used to int erpret this result as normal/abnormal . [facility] CentralMzhknmfJNQCLICPCN6077-26-25 08:16:00 Test Item Value Reference Range Interpretation Comments Monocytes (test code = Monocytes) 6.5 2.0-12.0 [facility] CentralTydgcggCBHNBLELWG8227-21-15 08:16:00 Test Item Value Reference Range Interpretation Comments Lymphocytes (test code = Lymphocytes) 7.0 20.0-40.0 [facility] CentralMdyknikVHVADWCNQW1885-40-01 08:16:00 Test Item Value Reference Range Interpretation Comments Eosinophils # (test code 0.1 See_Comment [A utomated message] The = Eosinophils #) system whic h generated this result tra nsmitted reference range : <=0.5. The reference r yared was not used to int erpret this result as normal/abnormal . [facility]XnmeimtQZRAWCUVJQ8874-90-50 08:16:00 Test Item Value Reference Range Interpretation Comments Monocytes # (test code 0.7 See_Comment [Aut omated message] The = Monocytes #) system which generated this result tra nsmitted reference range : <=0.8. The reference r yared was not used to int erpret this result as normal/abnormal . [facility] CentralHizqvqyAUBHUJMPNZ2578-25-99 08:16:00 Test Item Value Reference Range Interpretation Comments Lymphocytes # (test code = Lymphocytes 0.7 1.0-5.5 #) [facility] HospitalYbfwamvNIGSEQNIVF1641-69-61 08:16:00 Test Item Value Reference Range Interpretation Comments Neutrophils # (test code = Neutrophils 8.7 1.5-8.1 #) [facility] PSLIA3091-35-46 08:16:00 Test Item Value Reference Range Interpretation Comments Vitamin B12 Lvl (test code = Vitamin [phone] B12 Lvl) [facility] IZZGAMD5524-01-25 08:16:00 Test Item Value Reference Range Interpretation Comments Troponin-I (test code 0.04 See_Comment [Auto mated message] The = Troponin-I) system which g enerated this result transmit emerson reference range : <=0.40. The reference r yared was not used to interpr et this result as erinn l/abnormal. [facility]CHEM ZDSBM5895-12-33 08:16:00 Test Item Value Reference Range Interpretation Comments Magnesium Lvl (test code = Magnesium 1.8 1.8-2.4 Lvl) [facility]CHE[facility] HSOHK6729-17-99 08:16:00 Test Item Value Reference Range Interpretation Comments eGFR (test code = eGFR) 3 [facility]21viaNet IFBGQ0036-49-02 08:16:00 Test Item Value Reference Range Interpretation Comments A/G Ratio (test code = A/G Ratio) 0.6 1 0.7-1.6 [facility]2019-06-29 08:16:00 Test Item Value Reference Range Interpretation Comments B/C Ratio (test code = B/C Ratio) 4 1 6-25 [facility]2019-06-29 08:16:00 Test Item Value Reference Range Interpretation Comments Globulin (test code = Globulin) 3.4 2.7-4.2 [facility]2019-06-29 08:16:00 Test Item Value Reference Range Interpretation Comments Bili Total (test code = Bili Total) 0.4 0.2-1.3 [facility]2019-06-29 08:16:00 Test Item Value Reference Range Interpretation Comments AGAP (test code = AGAP) 18.3 10.0-20.0 [facility]2019-06-29 08:16:00 Test Item Value Reference Range Interpretation Comments Chloride Lvl (test code = Chloride Lvl) 93 95-109 [facility]2019-06-29 08:16:00 Test Item Value Reference Range Interpretation Comments CO2 (test code = CO2) 23 24-32 [facility]2019-06-29 08:16:00 Test Item Value Reference Range Interpretation Comments Calcium Lvl (test code = Calcium Lvl) 8.1 8.5-10.5 [facility]2019-06-29 08:16:00 Test Item Value Reference Range Interpretation Comments Glucose Lvl (test code = Glucose Lvl) 57 70-99 [facility]2019-06-29 08:16:00 Test Item Value Reference Range Interpretation Comments BUN (test code = BUN) 60 7-22 [facility]2019-06-29 08:16:00 Test Item Value Reference Range Interpretation Comments Sodium Lvl (test code = Sodium Lvl) 130 135-145 [facility]2019-06-29 08:16:00 Test Item Value Reference Range Interpretation Comments Creatinine Lvl (test code = Creatinine 15.90 0.50-1.40 Lvl) [facility]2019-06-29 08:16:00 Test Item Value Reference Range Interpretation Comments Potassium Lvl (test code = Potassium 4.3 3.5-5.1 Lvl) [facility]2019-06-29 08:16:00 Test Item Value Reference Range Interpretation Comments ALT (test code = ALT) 21 See_Comment [Auto mated message] The system which ge nerated this result transmit emerson reference range : <=65. The reference range was not used to interpr et this result as erinn l/abnormal. [facility]2019-06-29 08:16:00 Test Item Value Reference Range Interpretation Comments Alk Phos (test code = Alk Phos) 76 39-136 [facility]2019-06-29 08:16:00 Test Item Value Reference Range Interpretation Comments AST (test code = AST) 16 See_Comment [Auto mated message] The system which ge nerated this result transmit emerson reference range : <=37. The reference range was not used to interpr et this result as erinn l/abnormal. [facility]2019-06-29 08:16:00 Test Item Value Reference Range Interpretation Comments Total Protein (test code = Total 5.6 6.4-8.4 Protein) [facility]2019-06-29 08:16:00 Test Item Value Reference Range Interpretation Comments Albumin Lvl (test code = Albumin Lvl) 2.2 3.5-5.0 [facility] CentralRdpjxfyRTMKTSIAPG2004-13-45 08:16:00 Test Item Value Reference Range Interpretation Comments PTT (test code = PTT) 41.5 s 22.9-35.8 [facility] CentralMyhjijpGWZAELWJNV1361-23-89 08:16:00 Test Item Value Reference Range Interpretation Comments PT (test code = PT) 14.4 s 12.0-14.7 [facility] CentralCnhkbitDEIRMXBFCH1465-74-75 08:16:00 Test Item Value Reference Range Interpretation Comments INR (test code = INR) 1.14 1 0.85-1.17 [facility] CentralXwwevxrSLDQTKFJOX3098-43-86 08:16:00 Test Item Value Reference Range Interpretation Comments RDW (test code = RDW) 15.5 11.5-14.5 [facility] CentralGttwuwnZIQBYDHBEC0995-40-72 08:16:00 Test Item Value Reference Range Interpretation Comments Platelet (test code = Platelet) 139 133-450 [facility] CentralWxgqlofVLCRIVIBZG0485-23-23 08:16:00 Test Item Value Reference Range Interpretation Comments MCH (test code = MCH) 28.7 pg 27.0-31.0 [facility] CentralUizfdscQQWHBNJTVO9115-78-63 08:16:00 Test Item Value Reference Range Interpretation Comments MCHC (test code = MCHC) 34.2 32.0-36.0 [facility] CentralFqpfqckYIGNUPPKOF8941-91-90 08:16:00 Test Item Value Reference Range Interpretation Comments MCV (test code = MCV) 84.1 80.0-94.0 [facility] CentralOtiknovRCMEQJHIGG8401-05-63 08:16:00 Test Item Value Reference Range Interpretation Comments Hgb (test code = Hgb) 11.4 14.0-18.0 [facility] CentralLzjayktILEGFOEQPI8231-79-22 08:16:00 Test Item Value Reference Range Interpretation Comments Hct (test code = Hct) 33.2 42.0-54.0 [facility] CentralOgfkpkhXCVHCNPLJP6609-70-98 08:16:00 Test Item Value Reference Range Interpretation Comments WBC (test code = WBC) 10.2 3.7-10.4 [facility] CentralEtucecjUGSZNEALSW6541-46-46 08:16:00 Test Item Value Reference Range Interpretation Comments RBC (test code = RBC) 3.95 4.70-6.10 [facility] CentralTdobzumOTQXMZXSME8398-46-61 08:16:00 Test Item Value Reference Range Interpretation Comments MPV (test code = MPV) 8.3 7.4-10.4 [facility] CentralAzyojrlECKZOUYSHH1209-81-12 08:16:00 Test Item Value Reference Range Interpretation Comments Segs (test code = Segs) 84.8 45.0-75.0 [facility] CentralWsxeejrQNMXVGAVXC0338-68-34 08:16:00 Test Item Value Reference Range Interpretation Comments Basophils # (test code 0.1 See_Comment [Aut omated message] The = Basophils #) system which generated this result tra nsmitted reference range : <=0.2. The reference r yared was not used to int erpret this result as normal/abnormal . [facility] CentralWomfzjaVONOJORASK0784-98-02 08:16:00 Test Item Value Reference Range Interpretation Comments Basophils (test code = 0.5 See_Comment [Aut omated message] The Basophils) system which ge nerated this result tra nsmitted reference range : <=1.0. The reference r yared was not used to int erpret this result as normal/abnormal . [facility] CentralWzzqslcVQCIPKOOFK9750-73-93 08:16:00 Test Item Value Reference Range Interpretation Comments Eosinophils (test code = 1.2 See_Comment [A utomated message] The Eosinophils) system which ge nerated this result tra nsmitted reference range : <=4.0. The reference r yraed was not used to int erpret this result as normal/abnormal . [facility] CentralJoqhdxdJHHVZMCFGM1377-31-38 08:16:00 Test Item Value Reference Range Interpretation Comments Monocytes (test code = Monocytes) 6.5 2.0-12.0 [facility] CentralQiwwyriLZGXBPCZDI0212-57-39 08:16:00 Test Item Value Reference Range Interpretation Comments Lymphocytes (test code = Lymphocytes) 7.0 20.0-40.0 [facility] CentralIhgogfkTJHKPQWHRO4241-86-07 08:16:00 Test Item Value Reference Range Interpretation Comments Eosinophils # (test code 0.1 See_Comment [A utomated message] The = Eosinophils #) system whic h generated this result tra nsmitted reference range : <=0.5. The reference r yared was not used to int erpret this result as normal/abnormal . [facility] CentralTuxvwgjTULMUQUVDR4230-46-55 08:16:00 Test Item Value Reference Range Interpretation Comments Monocytes # (test code 0.7 See_Comment [Aut omated message] The = Monocytes #) system which generated this result tra nsmitted reference range : <=0.8. The reference r yared was not used to int erpret this result as normal/abnormal . [facility] CentralKsfglbhCAOPITDCNG6261-94-91 08:16:00 Test Item Value Reference Range Interpretation Comments Lymphocytes # (test code = Lymphocytes 0.7 1.0-5.5 #) [facility] CentralFpbeapyKQRIOFRLIX9946-47-18 08:16:00 Test Item Value Reference Range Interpretation Comments Neutrophils # (test code = Neutrophils 8.7 1.5-8.1 #) [facility]2019-06-29 04:17:00 Test Item Value Reference Range Interpretation Comments Lactic Acid Lvl (test code = Lactic 0.3 0.5-2.2 Acid Lvl) [facility]2019-06-29 04:17:00 Test Item Value Reference Range Interpretation Comments Lactic Acid Lvl (test code = Lactic 0.3 0.5-2.2 Acid Lvl) [facility]2019-06-29 04:17:00 Test Item Value Reference Range Interpretation Comments Lactic Acid Lvl (test code = Lactic 0.3 0.5-2.2 Acid Lvl) [facility] AEUHQYI6519-95-99 02:25:00 Test Item Value Reference Range Interpretation Comments Troponin-I (test code 0.03 See_Comment [Auto mated message] The = Troponin-I) system which g enerated this result transmit emerson reference range : <=0.40. The reference r yared was not used to interpr et this result as erinn l/abnormal. [facility]lnnf[facility]FYOBLR0606[facility] 02:25:00 Test Item Value Reference Range Interpretation Comments CHD Risk (test code = CHD Risk) 3.10 1 4.00-7.30 [facility] HospitalTropjrsYYLWNK0755-81-81 02:25:00 Test Item Value Reference Range Interpretation Comments VLDL (test code = VLDL) [address] [facility] CenterMgcelssUBYFPT3560-33-53 02:25:00 Test Item Value Reference Range Interpretation Comments HDL (test code = HDL) 58 [facility] HospitalLuzerivNVRRZR3605-98-41 02:25:00 Test Item Value Reference Range Interpretation Comments LDL (Calculated) (test code = LDL 101 (Calculated)) [facility] HospitalWxmynnnTOCCJT7332-50-66 02:25:00 Test Item Value Reference Range Interpretation Comments Chol (test code = Chol) 180 [facility] HospitalRjwuwiyEDCQTE4756-78-98 02:25:00 Test Item Value Reference Range Interpretation Comments Trig (test code = Trig) 103 [facility] NSAULKIXL9760-00-55 02:25:00 Test Item Value Reference Range Interpretation Comments Hgb A1C (test code = Hgb A1C) 4.0 [facility] GWDPOKM2695-88-02 02:25:00 Test Item Value Reference Range Interpretation Comments Troponin-I (test code 0.03 See_Comment [Auto mated message] The = Troponin-I) system which g enerated this result transmit emerson reference range : <=0.40. The reference r yared was not used to interpr et this result as erinn l/abnormal. [facility] CenterUkexwbsIYVFSV0897-69-55 02:25:00 Test Item Value Reference Range Interpretation Comments CHD Risk (test code = CHD Risk) 3.10 1 4.00-7.30 [facility] HospitalWrflhrxNCQOZZ3966-68-95 02:25:00 Test Item Value Reference Range Interpretation Comments VLDL (test code = VLDL) [address] [facility] InxwbdsTFVTRR6005-57-27 02:25:00 Test Item Value Reference Range Interpretation Comments HDL (test code = HDL) 58 [facility] HospitalSmwiwsjWJWFRW1337-96-76 02:25:00 Test Item Value Reference Range Interpretation Comments LDL (Calculated) (test code = LDL 101 (Calculated)) [facility] HospitalDwxahxgAFVEYE0294-76-99 02:25:00 Test Item Value Reference Range Interpretation Comments Chol (test code = Chol) 180 [facility] HospitalVpsywzkOCJXDY5835-19-97 02:25:00 Test Item Value Reference Range Interpretation Comments Trig (test code = Trig) 103 [facility] VBOIMRWYE1875-58-90 02:25:00 Test Item Value Reference Range Interpretation Comments Hgb A1C (test code = Hgb A1C) 4.0 [facility] HospitalCARDIAC IRPSRVC5053-16-29 02:25:00 Test Item Value Reference Range Interpretation Comments Troponin-I (test code 0.03 See_Comment [Auto mated message] The = Troponin-I) system which g enerated this result transmit emerson reference range : <=0.40. The reference r yared was not used to interpr et this result as erinn l/abnormal. [facility] HospitalKwbusroQEKIBU6249-07-09 02:25:00 Test Item Value Reference Range Interpretation Comments CHD Risk (test code = CHD Risk) 3.10 1 4.00-7.30 [facility] HospitalEccqggkQIRYWV9594-86-72 02:25:00 Test Item Value Reference Range Interpretation Comments VLDL (test code = VLDL) 21 1 [facility] HospitalIbmrsacJGCXJU4545-02-14 02:25:00 Test Item Value Reference Range Interpretation Comments HDL (test code = HDL) 58 [facility] HospitalNssnypdAKNJOS3967-83-70 02:25:00 Test Item Value Reference Range Interpretation Comments LDL (Calculated) (test code = LDL 101 (Calculated)) [facility] HospitalXgdobuwUXJYBA6339-36-22 02:25:00 Test Item Value Reference Range Interpretation Comments Chol (test code = Chol) 180 [facility] HospitalVyknundCWWFYH9563-35-03 02:25:00 Test Item Value Reference Range Interpretation Comments Trig (test code = Trig) 103 [facility] YYAUHSYTU6239-32-71 02:25:00 Test Item Value Reference Range Interpretation Comments Hgb A1C (test code = Hgb A1C) 4.0 [facility] HospitalCHEM BVGYK2800-41-25 12:41:00 Test Item Value Reference Range Interpretation Comments Phosphorus (test code = Phosphorus) 6.1 2.5-4.5 [facility]XpqggtdHAGEUEZJANYN1521-22-43 12:41:00 Test Item Value Reference Range Interpretation Comments AGAP (test code = AGAP) 14.8 10.0-20.0 [facility] HospitalXqzrwnhEZGJHOAPDKKH6977-88-71 12:41:00 Test Item Value Reference Range Interpretation Comments eGFR (test code = eGFR) 4 [facility] HospitalGfscoonZRDESGMLMNUM0724-48-56 12:41:00 Test Item Value Reference Range Interpretation Comments CO2 (test code = CO2) 27 24-32 [facility] HospitalPihgdfrCVEVJPIGXQPE2653-28-15 12:41:00 Test Item Value Reference Range Interpretation Comments Calcium Lvl (test code = Calcium Lvl) 7.9 8.5-10.5 [facility] HospitalJqfkytsXAGXUKGEURIK3419-26-65 12:41:00 Test Item Value Reference Range Interpretation Comments Creatinine Lvl (test code = Creatinine 12.90 0.50-1.40 Lvl) [facility] HospitalCkonfaeJYQVKXJSDSFP2910-41-27 12:41:00 Test Item Value Reference Range Interpretation Comments BUN (test code = BUN) 60 7-22 [facility] HospitalQlqomqiWHZBETGEOXUY5551-90-26 12:41:00 Test Item Value Reference Range Interpretation Comments Sodium Lvl (test code = Sodium Lvl) 139 135-145 [facility] HospitalVukujfgMWVSTNUUOHSS9499-63-39 12:41:00 Test Item Value Reference Range Interpretation Comments Glucose Lvl (test code = Glucose Lvl) 93 70-99 [facility] HospitalHsrjmawNDGQVSOBGDZH2041-80-85 12:41:00 Test Item Value Reference Range Interpretation Comments Chloride Lvl (test code = Chloride Lvl) 102 95-109 [facility] HospitalLlodnztBCJMGTUNWZOL6498-59-12 12:41:00 Test Item Value Reference Range Interpretation Comments Potassium Lvl (test code = Potassium 4.8 3.5-5.1 Lvl) [facility] HospitalSqxzcmdRZWRCGSICR7590-49-46 12:41:00 Test Item Value Reference Range Interpretation Comments MCHC (test code = MCHC) 35.3 32.0-36.0 [facility] CentralMyupxtkVEQYOGNYPB4854-83-04 12:41:00 Test Item Value Reference Range Interpretation Comments Hgb (test code = Hgb) 7.8 14.0-18.0 [facility] CentralUeaudtoHPKHKECEJP3121-11-19 12:41:00 Test Item Value Reference Range Interpretation Comments Hct (test code = Hct) 22.0 42.0-54.0 [facility] CentralFhmypaqIVYQLZLXSR9993-84-88 12:41:00 Test Item Value Reference Range Interpretation Comments RBC (test code = RBC) 2.68 4.70-6.10 [facility] CentralDksdxmtZTJHNCMWYJ4459-87-47 12:41:00 Test Item Value Reference Range Interpretation Comments WBC (test code = WBC) 4.4 3.7-10.4 [facility] CentralUmywoajFYHYJAWWXF9348-69-04 12:41:00 Test Item Value Reference Range Interpretation Comments RDW (test code = RDW) 14.5 11.5-14.5 [facility] CentralFbhduyaMKPCZTIBFQ4864-69-19 12:41:00 Test Item Value Reference Range Interpretation Comments MCV (test code = MCV) 82.1 80.0-94.0 [facility] CentralYqtczjdFLYAVNMILN3255-16-34 12:41:00 Test Item Value Reference Range Interpretation Comments MCH (test code = MCH) 29.0 pg 27.0-31.0 [facility] CentralXpovnubWDOWOIMJOU7150-37-36 12:41:00 Test Item Value Reference Range Interpretation Comments Platelet (test code = Platelet) 128 133-450 [facility] CentralLkiffqjDZOLIYFXUJ7398-79-39 12:41:00 Test Item Value Reference Range Interpretation Comments MPV (test code = MPV) 7.3 7.4-10.4 [facility] CentralXiamhwvYXPFEIEHLX4361-56-74 12:41:00 Test Item Value Reference Range Interpretation Comments Monocytes # (test code 0.4 See_Comment [Aut omated message] The = Monocytes #) system which generated this result tra nsmitted reference range : <=0.8. The reference r yared was not used to int erpret this result as normal/abnormal . [facility] CentralXlrkbkrAAJIDDRAUD8517-47-19 12:41:00 Test Item Value Reference Range Interpretation Comments Eosinophils # (test code 0.2 See_Comment [A utomated message] The = Eosinophils #) system whic h generated this result tra nsmitted reference range : <=0.5. The reference r yared was not used to int erpret this result as normal/abnormal . [facility] CentralIztaqizXHHTDMSLMA2125-97-35 12:41:00 Test Item Value Reference Range Interpretation Comments Monocytes (test code = Monocytes) 9.7 2.0-12.0 [facility] CentralLbwtlvsXNTVBCNKNA9591-76-98 12:41:00 Test Item Value Reference Range Interpretation Comments Eosinophils (test code = 3.7 See_Comment [A utomated message] The Eosinophils) system which ge nerated this result tra nsmitted reference range : <=4.0. The reference r yared was not used to int erpret this result as normal/abnormal . [facility] CentralZprgrvpATLKTYBGGQ6736-85-51 12:41:00 Test Item Value Reference Range Interpretation Comments Basophils (test code = 0.8 See_Comment [Aut omated message] The Basophils) system which ge nerated this result tra nsmitted reference range : <=1.0. The reference r yared was not used to int erpret this result as normal/abnormal . [facility] CentralPsfgkypYQDDKYGRLJ0986-82-64 12:41:00 Test Item Value Reference Range Interpretation Comments Neutrophils # (test code = Neutrophils 3.0 1.5-8.1 #) [facility] CentralBifewvfNCBAAKMXTI7965-45-83 12:41:00 Test Item Value Reference Range Interpretation Comments Lymphocytes # (test code = Lymphocytes 0.8 1.0-5.5 #) [facility] CentralFjcpdbeWBYNSZJXPY3537-07-81 12:41:00 Test Item Value Reference Range Interpretation Comments Segs (test code = Segs) 67.6 45.0-75.0 [facility] CentralFrmtsdxZTKJSVRAEF1075-49-08 12:41:00 Test Item Value Reference Range Interpretation Comments Lymphocytes (test code = Lymphocytes) 18.2 20.0-40.0 [facility]2018-10-15 12:41:00 Test Item Value Reference Range Interpretation Comments Phosphorus (test code = Phosphorus) 6.1 2.5-4.5 [facility]JdhyiklOOVJRWDYSJYV6584-84-57 12:41:00 Test Item Value Reference Range Interpretation Comments AGAP (test code = AGAP) 14.8 10.0-20.0 [facility] HospitalVkwczijNKZDHLBYRSBY3409-38-21 12:41:00 Test Item Value Reference Range Interpretation Comments eGFR (test code = eGFR) 4 [facility] HospitalIohvzjnWOVBQYSZVAEP1319-64-99 12:41:00 Test Item Value Reference Range Interpretation Comments CO2 (test code = CO2) 27 24-32 [facility] HospitalCfgausaFQKQEUZLFBBP0723-76-16 12:41:00 Test Item Value Reference Range Interpretation Comments Calcium Lvl (test code = Calcium Lvl) 7.9 8.5-10.5 [facility] HospitalGnronrdLNRGYIWMDPNQ6597-67-87 12:41:00 Test Item Value Reference Range Interpretation Comments Creatinine Lvl (test code = Creatinine 12.90 0.50-1.40 Lvl) [facility] HospitalSustktiWLAVUSEYULET7715-03-62 12:41:00 Test Item Value Reference Range Interpretation Comments BUN (test code = BUN) 60 7-22 [facility] HospitalTlxipimQHYAMTWEGOXF0099-71-49 12:41:00 Test Item Value Reference Range Interpretation Comments Sodium Lvl (test code = Sodium Lvl) 139 135-145 [facility] HospitalXvrvkdyIUEKORHRJVNE1775-83-05 12:41:00 Test Item Value Reference Range Interpretation Comments Glucose Lvl (test code = Glucose Lvl) 93 70-99 [facility] HospitalUctujrvSDHPBPJPLLRG6127-45-12 12:41:00 Test Item Value Reference Range Interpretation Comments Chloride Lvl (test code = Chloride Lvl) 102 95-109 [facility] HospitalFmbwplaBDQLOMWIRJIO8223-68-69 12:41:00 Test Item Value Reference Range Interpretation Comments Potassium Lvl (test code = Potassium 4.8 3.5-5.1 Lvl) [facility] CentralJkfexevIMXMAGFDAY6033-47-21 12:41:00 Test Item Value Reference Range Interpretation Comments MCHC (test code = MCHC) 35.3 32.0-36.0 [facility] CentralPlzjvkbVJNANIADWF8817-06-59 12:41:00 Test Item Value Reference Range Interpretation Comments Hgb (test code = Hgb) 7.8 14.0-18.0 [facility] CentralCuywthqOWOEXVXSIU2238-28-16 12:41:00 Test Item Value Reference Range Interpretation Comments Hct (test code = Hct) 22.0 42.0-54.0 [facility] CentralKhranddWUKZGTCDXJ5262-40-22 12:41:00 Test Item Value Reference Range Interpretation Comments RBC (test code = RBC) 2.68 4.70-6.10 [facility] CentralJnycqckHMYVGIOPBM4289-32-85 12:41:00 Test Item Value Reference Range Interpretation Comments WBC (test code = WBC) 4.4 3.7-10.4 [facility] CentralSzveqsxLVCMNFGATW5134-25-56 12:41:00 Test Item Value Reference Range Interpretation Comments RDW (test code = RDW) 14.5 11.5-14.5 [facility] CentralQmajtayOMIOZNXNWL5310-95-40 12:41:00 Test Item Value Reference Range Interpretation Comments MCV (test code = MCV) 82.1 80.0-94.0 [facility] CentralIjburpoJVOAWWDTGZ4272-29-82 12:41:00 Test Item Value Reference Range Interpretation Comments MCH (test code = MCH) 29.0 pg 27.0-31.0 [facility] CentralPegzisgQSBPUMMUKS9477-11-41 12:41:00 Test Item Value Reference Range Interpretation Comments Platelet (test code = Platelet) 128 133-450 [facility] CentralZjwijoaMAHOQRPLZK6661-87-95 12:41:00 Test Item Value Reference Range Interpretation Comments MPV (test code = MPV) 7.3 7.4-10.4 [facility] CentralCjoifdzICBLYOXIHQ9279-68-16 12:41:00 Test Item Value Reference Range Interpretation Comments Monocytes # (test code 0.4 See_Comment [Aut omated message] The = Monocytes #) system which generated this result tra nsmitted reference range : <=0.8. The reference r yared was not used to int erpret this result as normal/abnormal . [facility] CentralXucmhedTENBMHIEZN8999-58-29 12:41:00 Test Item Value Reference Range Interpretation Comments Eosinophils # (test code 0.2 See_Comment [A utomated message] The = Eosinophils #) system whic h generated this result tra nsmitted reference range : <=0.5. The reference r yared was not used to int erpret this result as normal/abnormal . [facility] CentralTbokoreCUZFDOQWQK3536-72-35 12:41:00 Test Item Value Reference Range Interpretation Comments Monocytes (test code = Monocytes) 9.7 2.0-12.0 [facility] CentralLklvvbqTPRHJBYZAJ6582-79-76 12:41:00 Test Item Value Reference Range Interpretation Comments Eosinophils (test code = 3.7 See_Comment [A utomated message] The Eosinophils) system which ge nerated this result tra nsmitted reference range : <=4.0. The reference r yared was not used to int erpret this result as normal/abnormal . [facility] CentralQncdxadJNERJRTTSZ2754-66-23 12:41:00 Test Item Value Reference Range Interpretation Comments Basophils (test code = 0.8 See_Comment [Aut omated message] The Basophils) system which ge nerated this result tra nsmitted reference range : <=1.0. The reference r yared was not used to int erpret this result as normal/abnormal . [facility] CentralCxzumthFXBKTUMBWU6419-84-45 12:41:00 Test Item Value Reference Range Interpretation Comments Neutrophils # (test code = Neutrophils 3.0 1.5-8.1 #) [facility] CentralIftseppKHSQLOUEKM1054-41-56 12:41:00 Test Item Value Reference Range Interpretation Comments Lymphocytes # (test code = Lymphocytes 0.8 1.0-5.5 #) [facility] CentralOkkaegkDNYTNGNBJR7132-12-20 12:41:00 Test Item Value Reference Range Interpretation Comments Segs (test code = Segs) 67.6 45.0-75.0 [facility] CentralOtqforcAQXXFRUFOT4198-33-82 12:41:00 Test Item Value Reference Range Interpretation Comments Lymphocytes (test code = Lymphocytes) 18.2 20.0-40.0 [facility]2018-10-15 12:41:00 Test Item Value Reference Range Interpretation Comments Phosphorus (test code = Phosphorus) 6.1 2.5-4.5 [facility] HospitalUgniuzqQVLLUXRPWEZF6723-48-49 12:41:00 Test Item Value Reference Range Interpretation Comments AGAP (test code = AGAP) 14.8 10.0-20.0 [facility] HospitalQehbjzaBTGMLDRABRHT3549-48-87 12:41:00 Test Item Value Reference Range Interpretation Comments eGFR (test code = eGFR) 4 [facility] HospitalWjtfmlbOORALJYJEVEG9288-55-27 12:41:00 Test Item Value Reference Range Interpretation Comments CO2 (test code = CO2) 27 24-32 [facility] HospitalCdjaqclBUAWTCCWSMCG5310-14-40 12:41:00 Test Item Value Reference Range Interpretation Comments Calcium Lvl (test code = Calcium Lvl) 7.9 8.5-10.5 [facility] HospitalBusvofvXKXNHNWJPGZI3348-26-77 12:41:00 Test Item Value Reference Range Interpretation Comments Creatinine Lvl (test code = Creatinine 12.90 0.50-1.40 Lvl) [facility] HospitalVcmetvbVATGMPDFDQCC8565-07-39 12:41:00 Test Item Value Reference Range Interpretation Comments BUN (test code = BUN) 60 7-22 [facility] HospitalGhfhdmaOJZIZPFHYZWD1560-49-88 12:41:00 Test Item Value Reference Range Interpretation Comments Sodium Lvl (test code = Sodium Lvl) 139 135-145 [facility] HospitalAozvgdjQCZQGOIFPATC7989-03-08 12:41:00 Test Item Value Reference Range Interpretation Comments Glucose Lvl (test code = Glucose Lvl) 93 70-99 [facility] HospitalEwfgjofZXATMEWVTOFX2034-80-38 12:41:00 Test Item Value Reference Range Interpretation Comments Chloride Lvl (test code = Chloride Lvl) 102 95-109 [facility] HospitalUqlbeacYILNIJNMYIRB4462-36-81 12:41:00 Test Item Value Reference Range Interpretation Comments Potassium Lvl (test code = Potassium 4.8 3.5-5.1 Lvl) [facility] CentralJhffkzvNETCURFIXR6678-60-76 12:41:00 Test Item Value Reference Range Interpretation Comments MCHC (test code = MCHC) 35.3 32.0-36.0 [facility] CentralJnmaqimBISWSIZIVM8524-73-98 12:41:00 Test Item Value Reference Range Interpretation Comments Hgb (test code = Hgb) 7.8 14.0-18.0 [facility] CentralCgwmmfhBLQVRYSHQK3907-14-91 12:41:00 Test Item Value Reference Range Interpretation Comments Hct (test code = Hct) 22.0 42.0-54.0 [facility] CentralZlrvqzuGGLDVMKADU6364-25-18 12:41:00 Test Item Value Reference Range Interpretation Comments RBC (test code = RBC) 2.68 4.70-6.10 [facility] CentralIetjiijQVBWFYONSU3769-66-03 12:41:00 Test Item Value Reference Range Interpretation Comments WBC (test code = WBC) 4.4 3.7-10.4 [facility] CentralKjxamkyIBIGWMEWHI9382-91-50 12:41:00 Test Item Value Reference Range Interpretation Comments RDW (test code = RDW) 14.5 11.5-14.5 [facility] CentralBxokjxyNOEYALDNRP2596-34-96 12:41:00 Test Item Value Reference Range Interpretation Comments MCV (test code = MCV) 82.1 80.0-94.0 [facility] CentralPnjjgxiAVMQXPVLUS3865-83-35 12:41:00 Test Item Value Reference Range Interpretation Comments MCH (test code = MCH) 29.0 pg 27.0-31.0 [facility] CentralRnuosggMIGQVAOHAX6758-22-38 12:41:00 Test Item Value Reference Range Interpretation Comments Platelet (test code = Platelet) 128 133-450 [facility] CentralOmfyqqoPFZNZKVUCJ1491-98-33 12:41:00 Test Item Value Reference Range Interpretation Comments MPV (test code = MPV) 7.3 7.4-10.4 [facility] CentralQzxtbsuMIXJLUYPUV4155-47-93 12:41:00 Test Item Value Reference Range Interpretation Comments Monocytes # (test code 0.4 See_Comment [Aut omated message] The = Monocytes #) system which generated this result tra nsmitted reference range : <=0.8. The reference r yared was not used to int erpret this result as normal/abnormal . [facility] CentralMwfywboVLBGNTVHSD6175-33-13 12:41:00 Test Item Value Reference Range Interpretation Comments Eosinophils # (test code 0.2 See_Comment [A utomated message] The = Eosinophils #) system whic h generated this result tra nsmitted reference range : <=0.5. The reference r yared was not used to int erpret this result as normal/abnormal . [facility] CentralEdbiexxESZYGWUZRM6211-03-21 12:41:00 Test Item Value Reference Range Interpretation Comments Monocytes (test code = Monocytes) 9.7 2.0-12.0 [facility] CentralEvlhmtbRSEINRROSK0134-24-54 12:41:00 Test Item Value Reference Range Interpretation Comments Eosinophils (test code = 3.7 See_Comment [A utomated message] The Eosinophils) system which ge nerated this result tra nsmitted reference range : <=4.0. The reference r yared was not used to int erpret this result as normal/abnormal . [facility] CentralVmljffhMYEXOTKBCO4514-98-77 12:41:00 Test Item Value Reference Range Interpretation Comments Basophils (test code = 0.8 See_Comment [Aut omated message] The Basophils) system which ge nerated this result tra nsmitted reference range : <=1.0. The reference r yared was not used to int erpret this result as normal/abnormal . [facility] CentralTjnwdyyRMDOQPWTNK2969-89-47 12:41:00 Test Item Value Reference Range Interpretation Comments Neutrophils # (test code = Neutrophils 3.0 1.5-8.1 #) [facility] CentralIoccegmDYCXDGHANN9362-62-28 12:41:00 Test Item Value Reference Range Interpretation Comments Lymphocytes # (test code = Lymphocytes 0.8 1.0-5.5 #) [facility] CentralBvxgbgaCAMCMAQVZV6024-40-23 12:41:00 Test Item Value Reference Range Interpretation Comments Segs (test code = Segs) 67.6 45.0-75.0 [facility] CentralQteywlwKNAROSXVRU2391-76-23 12:41:00 Test Item Value Reference Range Interpretation Comments Lymphocytes (test code = Lymphocytes) 18.2 20.0-40.0 [facility]2018-10-14 11:17:00 Test Item Value Reference Range Interpretation Comments Magnesium Lvl (test code = Magnesium 2.5 1.8-2.4 Lvl) [facility]2018-10-14 11:17:00 Test Item Value Reference Range Interpretation Comments Phosphorus (test code = Phosphorus) 8.3 2.5-4.5 [facility] HospitalLkbuobmFKPXOCDITGJT3021-40-49 11:17:00 Test Item Value Reference Range Interpretation Comments CO2 (test code = CO2) 22 24-32 [facility] HospitalVnjsllpBZOVRWJEKERL2137-09-57 11:17:00 Test Item Value Reference Range Interpretation Comments Calcium Lvl (test code = Calcium Lvl) 7.5 8.5-10.5 [facility] HospitalHvbgzxnECISFDGLEGVV3783-14-38 11:17:00 Test Item Value Reference Range Interpretation Comments Chloride Lvl (test code = Chloride Lvl) 98 95-109 [facility] HospitalWyjhqjzXGYSTMZCGIMT0919-42-09 11:17:00 Test Item Value Reference Range Interpretation Comments eGFR (test code = eGFR) 2 [facility] HospitalChainooRBVQIZABKKRB1984-92-45 11:17:00 Test Item Value Reference Range Interpretation Comments Creatinine Lvl (test code = Creatinine 19.20 0.50-1.40 Lvl) [facility] HospitalPnuytjnICQDGEUCLJFJ7067-90-98 11:17:00 Test Item Value Reference Range Interpretation Comments BUN (test code = BUN) 97 7-22 [facility] HospitalWdcycerEASEBUUXAFDZ8432-70-60 11:17:00 Test Item Value Reference Range Interpretation Comments Potassium Lvl (test code = Potassium 4.7 3.5-5.1 Lvl) [facility] HospitalDdgxbksWLXMWKAQPPUS6157-81-71 11:17:00 Test Item Value Reference Range Interpretation Comments Sodium Lvl (test code = Sodium Lvl) 135 135-145 [facility] HospitalYwjomjwJESUBQEFFWMP8960-09-96 11:17:00 Test Item Value Reference Range Interpretation Comments Glucose Lvl (test code = Glucose Lvl) 82 70-99 [facility] HospitalPrswitnHOAUQQKOMDOK4427-79-07 11:17:00 Test Item Value Reference Range Interpretation Comments AGAP (test code = AGAP) 19.7 10.0-20.0 [facility] CentralDjosubhLWYXDNVYAZ0539-56-42 11:17:00 Test Item Value Reference Range Interpretation Comments WBC (test code = WBC) 4.9 3.7-10.4 [facility] CentralJqbxmeoNDLBKYMVQQ9732-64-34 11:17:00 Test Item Value Reference Range Interpretation Comments RBC (test code = RBC) 2.85 4.70-6.10 [facility] CentralZnbqztaLCNYOOPVED6070-70-29 11:17:00 Test Item Value Reference Range Interpretation Comments MCV (test code = MCV) 82.3 80.0-94.0 [facility] CentralObcfpauVQIZDBFJWO0362-42-46 11:17:00 Test Item Value Reference Range Interpretation Comments MCH (test code = MCH) 28.8 pg 27.0-31.0 [facility] CentralTeavzzrFACSXTFDOE7591-06-15 11:17:00 Test Item Value Reference Range Interpretation Comments Hgb (test code = Hgb) 8.2 14.0-18.0 [facility] CentralIieqnyrZRQGLKKZBG7240-39-89 11:17:00 Test Item Value Reference Range Interpretation Comments Hct (test code = Hct) 23.4 42.0-54.0 [facility] CentralYtbtcjuQZXENOUEFP6021-09-55 11:17:00 Test Item Value Reference Range Interpretation Comments RDW (test code = RDW) 15.0 11.5-14.5 [facility] CentralRxrbvvxUMFOXSEKHQ3324-86-35 11:17:00 Test Item Value Reference Range Interpretation Comments MCHC (test code = MCHC) 35.0 32.0-36.0 [facility] CentralKedfqxrKGLFOSJEFI2265-46-28 11:17:00 Test Item Value Reference Range Interpretation Comments MPV (test code = MPV) 7.4 7.4-10.4 [facility] CentralVcvjktqBWLOUBOSFE6633-03-47 11:17:00 Test Item Value Reference Range Interpretation Comments Platelet (test code = Platelet) 140 133-450 [facility] CentralCvkepzaLDYNONVUEI4953-47-40 11:17:00 Test Item Value Reference Range Interpretation Comments Lymphocytes (test code = Lymphocytes) 20.3 20.0-40.0 [facility] CentralEziedhgIQZCDVITLN5743-95-56 11:17:00 Test Item Value Reference Range Interpretation Comments Basophils (test code = 1.0 See_Comment [Aut omated message] The Basophils) system which ge nerated this result tra nsmitted reference range : <=1.0. The reference r yared was not used to int erpret this result as normal/abnormal . [facility] CentralWzbwaaeXYBHBQMLVU1100-47-62 11:17:00 Test Item Value Reference Range Interpretation Comments Segs (test code = Segs) 67.1 45.0-75.0 [facility] CentralQentnsxLSDCXLXQRU8629-82-46 11:17:00 Test Item Value Reference Range Interpretation Comments Neutrophils # (test code = Neutrophils 3.3 1.5-8.1 #) [facility] CentralMihdhtnHOJZTBPIWK6869-93-43 11:17:00 Test Item Value Reference Range Interpretation Comments Eosinophils (test code = 3.1 See_Comment [A utomated message] The Eosinophils) system which ge nerated this result tra nsmitted reference range : <=4.0. The reference r yared was not used to int erpret this result as normal/abnormal . [facility] CentralLmayswqUBZCJRIKFK6418-86-20 11:17:00 Test Item Value Reference Range Interpretation Comments Monocytes (test code = Monocytes) 8.5 2.0-12.0 [facility] CentralFzhevkiHXIAJRVXSR7944-79-29 11:17:00 Test Item Value Reference Range Interpretation Comments Monocytes # (test code 0.4 See_Comment [Aut omated message] The = Monocytes #) system which generated this result tra nsmitted reference range : <=0.8. The reference r yared was not used to int erpret this result as normal/abnormal . [facility] CentralXzqqvqlENEOLWDSAP6542-16-73 11:17:00 Test Item Value Reference Range Interpretation Comments Lymphocytes # (test code = Lymphocytes 1.0 1.0-5.5 #) [facility] CentralRcwaslpJOTZTBLZKI6501-76-09 11:17:00 Test Item Value Reference Range Interpretation Comments Eosinophils # (test code 0.1 See_Comment [A utomated message] The = Eosinophils #) system [employer] h generated this result tra nsmitted reference range : <=0.5. The reference r yared was not used to int erpret this result as normal/abnormal . [facility]BmkgdyfEJHWBRFCXO4351-26-48 11:17:00 Test Item Value Reference Range Interpretation Comments Hep Bs Ag (test code Negative *NA*(07/22/18 = Hep Bs Ag) 6:17 AM) [facility] EIDMP7128-36-09 11:17:00 Test Item Value Reference Range Interpretation Comments Magnesium Lvl (test code = Magnesium 2.5 1.8-2.4 Lvl) [facility] VVUNO4788-87-90 11:17:00 Test Item Value Reference Range Interpretation Comments Phosphorus (test code = Phosphorus) 8.3 2.5-4.5 [facility] HospitalJeztidnOMWOTMAJZTBX5546-15-85 11:17:00 Test Item Value Reference Range Interpretation Comments CO2 (test code = CO2) 22 24-32 [facility] HospitalIamcoklPZVGYGSZQXCC4588-14-30 11:17:00 Test Item Value Reference Range Interpretation Comments Calcium Lvl (test code = Calcium Lvl) 7.5 8.5-10.5 [facility] HospitalYrttbuvQWLXJGAJPTQM3539-31-12 11:17:00 Test Item Value Reference Range Interpretation Comments Chloride Lvl (test code = Chloride Lvl) 98 95-109 [facility] HospitalVzlookrMKTSAGBJUMNG2069-92-33 11:17:00 Test Item Value Reference Range Interpretation Comments eGFR (test code = eGFR) 2 [facility] HospitalGsvpdwrXHJNFTPRUISI9772-45-71 11:17:00 Test Item Value Reference Range Interpretation Comments Creatinine Lvl (test code = Creatinine 19.20 0.50-1.40 Lvl) [facility]EkesombNEJTQTSXTEIA6365-83-47 11:17:00 Test Item Value Reference Range Interpretation Comments BUN (test code = BUN) 97 7-22 [facility] HospitalTqstwadIRQDBNYYEHTN2070-14-41 11:17:00 Test Item Value Reference Range Interpretation Comments Potassium Lvl (test code = Potassium 4.7 3.5-5.1 Lvl) [facility] HospitalWiymrgbYGAJRQXVEOHI7863-00-80 11:17:00 Test Item Value Reference Range Interpretation Comments Sodium Lvl (test code = Sodium Lvl) 135 135-145 [facility] HospitalZzxprruLNETXOKWGKII1125-42-19 11:17:00 Test Item Value Reference Range Interpretation Comments Glucose Lvl (test code = Glucose Lvl) 82 70-99 [facility] HospitalVeetwnaIUEMNIFYRFVK8879-34-22 11:17:00 Test Item Value Reference Range Interpretation Comments AGAP (test code = AGAP) 19.7 10.0-20.0 [facility] CentralFluwnweQOMGZQRHME7992-51-03 11:17:00 Test Item Value Reference Range Interpretation Comments WBC (test code = WBC) 4.9 3.7-10.4 [facility] CentralFklqdnlUZUXQXOYZK6685-26-25 11:17:00 Test Item Value Reference Range Interpretation Comments RBC (test code = RBC) 2.85 4.70-6.10 [facility] CentralHnkqecjQPTCVTAZLO7291-54-47 11:17:00 Test Item Value Reference Range Interpretation Comments MCV (test code = MCV) 82.3 80.0-94.0 [facility] CentralPacirhiHEZKHMILGN1806-26-62 11:17:00 Test Item Value Reference Range Interpretation Comments MCH (test code = MCH) 28.8 pg 27.0-31.0 [facility] CentralCbrrnlwXSMHBLERBJ1920-13-72 11:17:00 Test Item Value Reference Range Interpretation Comments Hgb (test code = Hgb) 8.2 14.0-18.0 [facility] CentralHbisuqsPYANOYZCVS9857-07-70 11:17:00 Test Item Value Reference Range Interpretation Comments Hct (test code = Hct) 23.4 42.0-54.0 [facility] CentralHsjmuuzZQBJMTDMZV7623-82-01 11:17:00 Test Item Value Reference Range Interpretation Comments RDW (test code = RDW) 15.0 11.5-14.5 [facility] CentralHmqakyhQGTTECNTPQ9343-18-03 11:17:00 Test Item Value Reference Range Interpretation Comments MCHC (test code = MCHC) 35.0 32.0-36.0 [facility] CentralCjvurpdALPVBVDJCP6552-19-24 11:17:00 Test Item Value Reference Range Interpretation Comments MPV (test code = MPV) 7.4 7.4-10.4 [facility] CentralZjozwhvAETOQPJYRB5661-42-61 11:17:00 Test Item Value Reference Range Interpretation Comments Platelet (test code = Platelet) 140 133-450 [facility] CentralBvfrydsTXBDUTZYRX0262-16-89 11:17:00 Test Item Value Reference Range Interpretation Comments Lymphocytes (test code = Lymphocytes) 20.3 20.0-40.0 [facility] CentralMtupeioICBCIWGNYO4746-99-47 11:17:00 Test Item Value Reference Range Interpretation Comments Basophils (test code = 1.0 See_Comment [Aut omated message] The Basophils) system which ge nerated this result tra nsmitted reference range : <=1.0. The reference r yared was not used to int erpret this result as normal/abnormal . [facility] CentralUhmkmeqTMHCDEJSWK0474-58-20 11:17:00 Test Item Value Reference Range Interpretation Comments Segs (test code = Segs) 67.1 45.0-75.0 [facility] CentralVbiuxuhFMUKPUDNVI9235-63-70 11:17:00 Test Item Value Reference Range Interpretation Comments Neutrophils # (test code = Neutrophils 3.3 1.5-8.1 #) [facility] CentralAdnhzhhDQEGKELIOL1060-60-48 11:17:00 Test Item Value Reference Range Interpretation Comments Eosinophils (test code = 3.1 See_Comment [A utomated message] The Eosinophils) system which ge nerated this result tra nsmitted reference range : <=4.0. The reference r yared was not used to int erpret this result as normal/abnormal . [facility] CentralWxyhejcESZCFYSINL1120-91-97 11:17:00 Test Item Value Reference Range Interpretation Comments Monocytes (test code = Monocytes) 8.5 2.0-12.0 [facility] CentralKnenlnmWYMIOFJWGG6986-81-08 11:17:00 Test Item Value Reference Range Interpretation Comments Monocytes # (test code 0.4 See_Comment [Aut omated message] The = Monocytes #) system which generated this result tra nsmitted reference range : <=0.8. The reference r yared was not used to int erpret this result as normal/abnormal . [facility] CentralQslgojcLMMTAYRIBD2030-58-93 11:17:00 Test Item Value Reference Range Interpretation Comments Lymphocytes # (test code = Lymphocytes 1.0 1.0-5.5 #) [facility] CentralJeungqeCSMHDDDWAL8186-45-68 11:17:00 Test Item Value Reference Range Interpretation Comments Eosinophils # (test code 0.1 See_Comment [A utomated message] The = Eosinophils #) system whic h generated this result tra nsmitted reference range : <=0.5. The reference r yared was not used to int erpret this result as normal/abnormal . [facility]BlbileaBDAQAHTRDP1285-83-50 11:17:00 Test Item Value Reference Range Interpretation Comments Hep Bs Ag (test code Negative *NA*(07/22/18 = Hep Bs Ag) 6:17 AM) [facility]2018-10-14 11:17:00 Test Item Value Reference Range Interpretation Comments Magnesium Lvl (test code = Magnesium 2.5 1.8-2.4 Lvl) [facility] ZHSML6519-90-56 11:17:00 Test Item Value Reference Range Interpretation Comments Phosphorus (test code = Phosphorus) 8.3 2.5-4.5 [facility]ApkdrgfFTNKAQJKTEQK7694-86-71 11:17:00 Test Item Value Reference Range Interpretation Comments CO2 (test code = CO2) 22 24-32 [facility] HospitalMnvorvcBFGPQGEGYCTF9441-94-27 11:17:00 Test Item Value Reference Range Interpretation Comments Calcium Lvl (test code = Calcium Lvl) 7.5 8.5-10.5 [facility] HospitalKytbalkGUDUPZUKSGPH0157-56-29 11:17:00 Test Item Value Reference Range Interpretation Comments Chloride Lvl (test code = Chloride Lvl) 98 95-109 [facility] HospitalWolrjtsSCCYYAUEZKYG7409-63-45 11:17:00 Test Item Value Reference Range Interpretation Comments eGFR (test code = eGFR) 2 [facility] HospitalVncqygeGYUECWGEQOWS4484-72-67 11:17:00 Test Item Value Reference Range Interpretation Comments Creatinine Lvl (test code = Creatinine 19.20 0.50-1.40 Lvl) [facility] HospitalOeavzerKRYEFOTAAFBV2358-71-75 11:17:00 Test Item Value Reference Range Interpretation Comments BUN (test code = BUN) 97 7-22 [facility] HospitalMgocpfrCCYITNAHFLFZ1891-83-68 11:17:00 Test Item Value Reference Range Interpretation Comments Potassium Lvl (test code = Potassium 4.7 3.5-5.1 Lvl) [facility] HospitalKehkzwuRRJNOZZJBKKO5776-10-16 11:17:00 Test Item Value Reference Range Interpretation Comments Sodium Lvl (test code = Sodium Lvl) 135 135-145 [facility] HospitalIgytghjVHPCMZPRYEKQ6542-35-20 11:17:00 Test Item Value Reference Range Interpretation Comments Glucose Lvl (test code = Glucose Lvl) 82 70-99 [facility]kfmpldKEJZFBLDEFZT5998-51-99 11:17:00 Test Item Value Reference Range Interpretation Comments AGAP (test code = AGAP) 19.7 10.0-20.0 [facility] HospitalKaiapmsEKYXQMBDKQ4135-59-62 11:17:00 Test Item Value Reference Range Interpretation Comments WBC (test code = WBC) 4.9 3.7-10.4 [facility] CentralKxppcloCKEYAUFGET3143-16-30 11:17:00 Test Item Value Reference Range Interpretation Comments RBC (test code = RBC) 2.85 4.70-6.10 [facility] CentralJrkrfkqMORTMPLJTW1993-71-57 11:17:00 Test Item Value Reference Range Interpretation Comments MCV (test code = MCV) 82.3 80.0-94.0 [facility] CentralIyluhalLJPCXZJAEC6210-70-76 11:17:00 Test Item Value Reference Range Interpretation Comments MCH (test code = MCH) 28.8 pg 27.0-31.0 [facility] CentralLblkgztFDMSCQDVJN4149-00-30 11:17:00 Test Item Value Reference Range Interpretation Comments Hgb (test code = Hgb) 8.2 14.0-18.0 [facility] CentralWkkbpomLRUKGTUBCC8572-64-94 11:17:00 Test Item Value Reference Range Interpretation Comments Hct (test code = Hct) 23.4 42.0-54.0 [facility] CentralYxuikccSVFJRVIDRK8775-83-25 11:17:00 Test Item Value Reference Range Interpretation Comments RDW (test code = RDW) 15.0 11.5-14.5 [facility] CentralOpzpgmpRCMLHALEMY4478-41-54 11:17:00 Test Item Value Reference Range Interpretation Comments MCHC (test code = MCHC) 35.0 32.0-36.0 [facility] CentralTegqtnuYNYNNLAOVG4939-35-35 11:17:00 Test Item Value Reference Range Interpretation Comments MPV (test code = MPV) 7.4 7.4-10.4 [facility] CentralFscxtuiZZQIQKMOQM2881-24-90 11:17:00 Test Item Value Reference Range Interpretation Comments Platelet (test code = Platelet) 140 133-450 [facility] CentralJkdfuqkZLCNMVPZCB7282-40-68 11:17:00 Test Item Value Reference Range Interpretation Comments Lymphocytes (test code = Lymphocytes) 20.3 20.0-40.0 [facility] CentralKxizzmjPHVILQROSA7826-01-93 11:17:00 Test Item Value Reference Range Interpretation Comments Basophils (test code = 1.0 See_Comment [Aut omated message] The Basophils) system which ge nerated this result tra nsmitted reference range : <=1.0. The reference r yared was not used to int erpret this result as normal/abnormal . [facility] CentralEjxbvagBSIFWOAYQN7052-02-42 11:17:00 Test Item Value Reference Range Interpretation Comments Segs (test code = Segs) 67.1 45.0-75.0 [facility] CentralDjivjdvEELNSHTWBC4646-71-30 11:17:00 Test Item Value Reference Range Interpretation Comments Neutrophils # (test code = Neutrophils 3.3 1.5-8.1 #) [facility] CentralMjvlvstKGOQXBSGZG4477-82-59 11:17:00 Test Item Value Reference Range Interpretation Comments Eosinophils (test code = 3.1 See_Comment [A utomated message] The Eosinophils) system which ge nerated this result tra nsmitted reference range : <=4.0. The reference r yared was not used to int erpret this result as normal/abnormal . [facility] CentralEcoianeRVPGWNHBUV0885-29-02 11:17:00 Test Item Value Reference Range Interpretation Comments Monocytes (test code = Monocytes) 8.5 2.0-12.0 [facility] CentralOsledbcUVXCKWTGKV9005-63-64 11:17:00 Test Item Value Reference Range Interpretation Comments Monocytes # (test code 0.4 See_Comment [Aut omated message] The = Monocytes #) system which generated this result tra nsmitted reference range : <=0.8. The reference r yared was not used to int erpret this result as normal/abnormal . [facility] CentralErtjhapRSWBIXVIVH4415-36-32 11:17:00 Test Item Value Reference Range Interpretation Comments Lymphocytes # (test code = Lymphocytes 1.0 1.0-5.5 #) [facility] CentralUqblltrZVZIZGPUTS8315-58-31 11:17:00 Test Item Value Reference Range Interpretation Comments Eosinophils # (test code 0.1 See_Comment [A utomated message] The = Eosinophils #) system whic h generated this result tra nsmitted reference range : <=0.5. The reference r yared was not used to int erpret this result as normal/abnormal . [facility] HospitalTaxvqaxRCFBNQPTBC1918-60-89 11:17:00 Test Item Value Reference Range Interpretation Comments Hep Bs Ag (test code Negative *NA*(07/22/18 = Hep Bs Ag) 6:17 AM) [employer] UHMLGIF0783-64-62 02:46:00 Test Item Value Reference Range Interpretation Comments proBNP (test code = 08001 See_Comment [Automa emerson message] The proBNP) system which ge nerated this result tra nsmitted reference range : <=125. The reference r yared was not used to int erpret this result as erinn l/abnormal. [employer]2018-10-14 02:46:00 Test Item Value Reference Range Interpretation Comments Troponin-I (test code no gt See_Comment [Auto mated message] The = Troponin-I) system which g enerated this result transmit emerson reference range : <=0.40. The reference r yared was not used to interpr et this result as erinn l/abnormal. [employer]2018-10-14 02:46:00 Test Item Value Reference Range Interpretation Comments Total CK (test code = Total CK) 91 12-191 [employer]2018-10-14 02:46:00 Test Item Value Reference Range Interpretation Comments Lipase Lvl (test code = Lipase Lvl) 95 73-393 [employer]2018-10-14 02:46:00 Test Item Value Reference Range Interpretation Comments Globulin (test code = Globulin) 3.2 2.7-4.2 [employer]2018-10-14 02:46:00 Test Item Value Reference Range Interpretation Comments A/G Ratio (test code = A/G Ratio) 0.9 1 0.7-1.6 [employer]2018-10-14 02:46:00 Test Item Value Reference Range Interpretation Comments B/C Ratio (test code = B/C Ratio) 5 1 6-25 [employer]2018-10-14 02:46:00 Test Item Value Reference Range Interpretation Comments AGAP (test code = AGAP) 18.7 10.0-20.0 [employer]2018-10-14 02:46:00 Test Item Value Reference Range Interpretation Comments eGFR (test code = eGFR) 2 [employer]2018-10-14 02:46:00 Test Item Value Reference Range Interpretation Comments Calcium Lvl (test code = Calcium Lvl) 7.6 8.5-10.5 [facility]2018-10-14 02:46:00 Test Item Value Reference Range Interpretation Comments CO2 (test code = CO2) 24 24-32 [place] 597388-10-14 02:46:00 Test Item Value Reference Range Interpretation Comments Chloride Lvl (test code = Chloride Lvl) 98 95-109 [place] 597388-10-14 02:46:00 Test Item Value Reference Range Interpretation Comments Potassium Lvl (test code = Potassium 4.7 3.5-5.1 Lvl) [facility]2018-10-14 02:46:00 Test Item Value Reference Range Interpretation Comments Sodium Lvl (test code = Sodium Lvl) 136 135-145 [place] 597388-10-14 02:46:00 Test Item Value Reference Range Interpretation Comments Albumin Lvl (test code = Albumin Lvl) 2.8 3.5-5.0 [facility]2018-10-14 02:46:00 Test Item Value Reference Range Interpretation Comments ALT (test code = ALT) 13 See_Comment [Auto mated message] The system which ge nerated this result transmit emerson reference range : <=65. The reference range was not used to interpr et this result as erinn l/abnormal. [place] 597388-10-14 02:46:00 Test Item Value Reference Range Interpretation Comments AST (test code = AST) 9 See_Comment [Auto mated message] The system which ge nerated this result transmit emerson reference range : <=37. The reference range was not used to interpr et this result as erinn l/abnormal. [place] 597388-10-14 02:46:00 Test Item Value Reference Range Interpretation Comments Alk Phos (test code = Alk Phos) 57 39-136 [facility]2018-10-14 02:46:00 Test Item Value Reference Range Interpretation Comments Total Protein (test code = Total 6.0 6.4-8.4 Protein) [place] 597388-10-14 02:46:00 Test Item Value Reference Range Interpretation Comments Bili Total (test code = Bili Total) 0.4 0.2-1.3 [facility]2018-10-14 02:46:00 Test Item Value Reference Range Interpretation Comments Creatinine Lvl (test code = Creatinine 18.60 0.50-1.40 Lvl) [facility]2018-10-14 02:46:00 Test Item Value Reference Range Interpretation Comments Glucose Lvl (test code = Glucose Lvl) 89 70-99 [facility]2018-10-14 02:46:00 Test Item Value Reference Range Interpretation Comments BUN (test code = BUN) 95 7-22 [place] 531388-10-14 02:46:00 Test Item Value Reference Range Interpretation Comments Segs (test code = Segs) 66.2 45.0-75.0 [place] 531388-10-14 02:46:00 Test Item Value Reference Range Interpretation Comments Lymphocytes (test code = Lymphocytes) 21.4 20.0-40.0 [facility] CentralLrwxmceAROIEXHNEB1188-28-84 02:46:00 Test Item Value Reference Range Interpretation Comments Monocytes (test code = Monocytes) 7.7 2.0-12.0 [place] [address]-10-14 02:46:00 Test Item Value Reference Range Interpretation Comments Lymphocytes # (test code = Lymphocytes 0.9 1.0-5.5 #) [facility] CentralYssphalQNFMPKORNP6257-18-67 02:46:00 Test Item Value Reference Range Interpretation Comments Basophils (test code = 1.2 See_Comment [Aut omated message] The Basophils) system which ge nerated this result tra nsmitted reference range : <=1.0. The reference r yared was not used to int erpret this result as normal/abnormal . [facility] CentralWafptftGSEHONCFSB8711-23-82 02:46:00 Test Item Value Reference Range Interpretation Comments Monocytes # (test code 0.3 See_Comment [Aut omated message] The = Monocytes #) system which generated this result tra nsmitted reference range : <=0.8. The reference r yared was not used to int erpret this result as normal/abnormal . [facility] CentralZjefvnfLCZMVZVWEX6800-76-95 02:46:00 Test Item Value Reference Range Interpretation Comments Eosinophils # (test code 0.1 See_Comment [A utomated message] The = Eosinophils #) system whic h generated this result tra nsmitted reference range : <=0.5. The reference r yared was not used to int erpret this result as normal/abnormal . [facility] CentralDqdkulsRCGHYBLAYX7947-49-76 02:46:00 Test Item Value Reference Range Interpretation Comments Neutrophils # (test code = Neutrophils 2.7 1.5-8.1 #) [facility] CentralVsdcqokZIVDTQRSUL0357-97-83 02:46:00 Test Item Value Reference Range Interpretation Comments Eosinophils (test code = 3.5 See_Comment [A utomated message] The Eosinophils) system which ge nerated this result tra nsmitted reference range : <=4.0. The reference r yared was not used to int erpret this result as normal/abnormal . [facility] CentralGpgujyjVNMGTWLZGO0641-73-85 02:46:00 Test Item Value Reference Range Interpretation Comments PT (test code = PT) 14.4 s 12.0-14.7 [facility] CentralQxuztxfIZNTOLGUFX9173-97-50 02:46:00 Test Item Value Reference Range Interpretation Comments INR (test code = INR) 1.12 1 0.85-1.17 [facility] CentralQtlpvgxQPAZXAGKWN3253-97-96 02:46:00 Test Item Value Reference Range Interpretation Comments PTT (test code = PTT) 37.1 s 22.9-35.8 [facility] CentralDersdtzSWIZXUUFFU6743-23-19 02:46:00 Test Item Value Reference Range Interpretation Comments RDW (test code = RDW) 14.8 11.5-14.5 [facility] CentralGvimmuqVZXAOYPSYA8526-19-16 02:46:00 Test Item Value Reference Range Interpretation Comments Platelet (test code = Platelet) 143 133-450 [facility] CentralPtednwrSRUQPIOYYJ9063-73-26 02:46:00 Test Item Value Reference Range Interpretation Comments MPV (test code = MPV) 7.6 7.4-10.4 [facility] CentralYqogtyzBBGOCQMQRT3255-45-92 02:46:00 Test Item Value Reference Range Interpretation Comments RBC (test code = RBC) 2.83 4.70-6.10 [facility] CentralZgwqsceHODGFTDDIJ5877-12-29 02:46:00 Test Item Value Reference Range Interpretation Comments WBC (test code = WBC) 4.1 3.7-10.4 [facility] CentralFrhxxfhLYEIHRRUDB3113-26-06 02:46:00 Test Item Value Reference Range Interpretation Comments MCHC (test code = MCHC) 35.2 32.0-36.[address] [facility] PkslzccBUDRENNMJB2261-31-57 02:46:00 Test Item Value Reference Range Interpretation Comments MCH (test code = MCH) 28.8 pg 27.0-31.0 [facility] GklwnzrIFPASLFEMI7669-75-07 02:46:00 Test Item Value Reference Range Interpretation Comments Hgb (test code = Hgb) 8.1 14.0-18.0 [facility] XowwetrZUMZISLYXP4934-17-06 02:46:00 Test Item Value Reference Range Interpretation Comments MCV (test code = MCV) 81.9 80.0-94.0 [facility] WwfxxaxZKEXEXOFJH2688-66-12 02:46:00 Test Item Value Reference Range Interpretation Comments Hct (test code = Hct) 23.2 42.0-54.[address] [facility] [employer]2018-10-14 02:46:00 Test Item Value Reference Range Interpretation Comments proBNP (test code = 43053 See_Comment [Automa emerson message] The proBNP) system which ge nerated this result tra nsmitted reference range : <=125. The reference r yared was not used to int erpret this result as erinn l/abnormal. [facility] [employer]2018-10-14 02:46:00 Test Item Value Reference Range Interpretation Comments Troponin-I (test code no gt See_Comment [Auto mated message] The = Troponin-I) system which g enerated this result transmit emerson reference range : <=0.40. The reference r yared was not used to interpr et this result as erinn l/abnormal. [facility]2018-10-14 02:46:00 Test Item Value Reference Range Interpretation Comments Total CK (test code = Total CK) 91 12-[address] [facility] [employer] EYSCK4773-21-47 02:46:00 Test Item Value Reference Range Interpretation Comments Lipase Lvl (test code = Lipase Lvl) 95 73-393 [facility] [employer] YJLRE5225-14-68 02:46:00 Test Item Value Reference Range Interpretation Comments Globulin (test code = Globulin) 3.2 2.7-4.2 [facility] [employer] DVHFQ2968-66-62 02:46:00 Test Item Value Reference Range Interpretation Comments A/G Ratio (test code = A/G Ratio) 0.9 1 0.7-1.6 [facility]2018-10-14 02:46:00 Test Item Value Reference Range Interpretation Comments B/C Ratio (test code = B/C Ratio) 5 1 6-25 [facility]2018-10-14 02:46:00 Test Item Value Reference Range Interpretation Comments AGAP (test code = AGAP) 18.7 10.0-20.0 [facility]2018-10-14 02:46:00 Test Item Value Reference Range Interpretation Comments eGFR (test code = eGFR) 2 [facility]2018-10-14 02:46:00 Test Item Value Reference Range Interpretation Comments Calcium Lvl (test code = Calcium Lvl) 7.6 8.5-10.5 [facility]2018-10-14 02:46:00 Test Item Value Reference Range Interpretation Comments CO2 (test code = CO2) 24 24-32 [facility]2018-10-14 02:46:00 Test Item Value Reference Range Interpretation Comments Chloride Lvl (test code = Chloride Lvl) 98 95-109 [facility]2018-10-14 02:46:00 Test Item Value Reference Range Interpretation Comments Potassium Lvl (test code = Potassium 4.7 3.5-5.1 Lvl) [facility]2018-10-14 02:46:00 Test Item Value Reference Range Interpretation Comments Sodium Lvl (test code = Sodium Lvl) 136 135-145 [facility]2018-10-14 02:46:00 Test Item Value Reference Range Interpretation Comments Albumin Lvl (test code = Albumin Lvl) 2.8 3.5-5.0 [facility]2018-10-14 02:46:00 Test Item Value Reference Range Interpretation Comments ALT (test code = ALT) 13 See_Comment [Auto mated message] The system which ge nerated this result transmit emerson reference range : <=65. The reference range was not used to interpr et this result as erinn l/abnormal. [place] 597388-10-14 02:46:00 Test Item Value Reference Range Interpretation Comments AST (test code = AST) 9 See_Comment [Auto mated message] The system which ge nerated this result transmit emerson reference range : <=37. The reference range was not used to interpr et this result as erinn l/abnormal. [place] 597388-10-14 02:46:00 Test Item Value Reference Range Interpretation Comments Alk Phos (test code = Alk Phos) 57 39-136 [place] [address]-10-14 02:46:00 Test Item Value Reference Range Interpretation Comments Total Protein (test code = Total 6.0 6.4-8.4 Protein) [place] 597388-10-14 02:46:00 Test Item Value Reference Range Interpretation Comments Bili Total (test code = Bili Total) 0.4 0.2-1.[address]10-14 02:46:00 Test Item Value Reference Range Interpretation Comments Creatinine Lvl (test code = Creatinine 18.60 0.50-1.40 Lvl) [place] 597388-10-14 02:46:00 Test Item Value Reference Range Interpretation Comments Glucose Lvl (test code = Glucose Lvl) 89 70-99 [facility]2018-10-14 02:46:00 Test Item Value Reference Range Interpretation Comments BUN (test code = BUN) 95 7-22 [place] [address]-10-14 02:46:00 Test Item Value Reference Range Interpretation Comments Segs (test code = Segs) 66.2 45.0-75.0 [place] [address]-10-14 02:46:00 Test Item Value Reference Range Interpretation Comments Lymphocytes (test code = Lymphocytes) 21.4 20.0-40.0 [place] 531388-10-14 02:46:00 Test Item Value Reference Range Interpretation Comments Monocytes (test code = Monocytes) 7.7 2.0-12.0 [place] [address]-10-14 02:46:00 Test Item Value Reference Range Interpretation Comments Lymphocytes # (test code = Lymphocytes 0.9 1.0-5.5 #) [place] [address]-10-14 02:46:00 Test Item Value Reference Range Interpretation Comments Basophils (test code = 1.2 See_Comment [Aut omated message] The Basophils) system which ge nerated this result tra nsmitted reference range : <=1.0. The reference r yared was not used to int erpret this result as normal/abnormal . [facility] CentralLhexxovSJCZOZNWOD2427-04-01 02:46:00 Test Item Value Reference Range Interpretation Comments Monocytes # (test code 0.3 See_Comment [Aut omated message] The = Monocytes #) system which generated this result tra nsmitted reference range : <=0.8. The reference r yared was not used to int erpret this result as normal/abnormal . [facility] CentralTvxjixmTBKRQVJPQG4766-64-93 02:46:00 Test Item Value Reference Range Interpretation Comments Eosinophils # (test code 0.1 See_Comment [A utomated message] The = Eosinophils #) system whic h generated this result tra nsmitted reference range : <=0.5. The reference r yared was not used to int erpret this result as normal/abnormal . [facility] CentralGhfkvsjJHJJWMFHME7596-51-00 02:46:00 Test Item Value Reference Range Interpretation Comments Neutrophils # (test code = Neutrophils 2.7 1.5-8.1 #) [facility] CentralVedqrbbSCTKEWGEFJ6241-39-15 02:46:00 Test Item Value Reference Range Interpretation Comments Eosinophils (test code = 3.5 See_Comment [A utomated message] The Eosinophils) system which ge nerated this result tra nsmitted reference range : <=4.0. The reference r yared was not used to int erpret this result as normal/abnormal . [facility] CentralHgelxacNSLONQXZJI4669-83-19 02:46:00 Test Item Value Reference Range Interpretation Comments PT (test code = PT) 14.4 s 12.0-14.7 [facility] CentralItntiqkZPDXLRENGE1209-59-61 02:46:00 Test Item Value Reference Range Interpretation Comments INR (test code = INR) 1.12 1 0.85-1.17 [facility] CentralOpmuobdZCPHZMSRIV9772-64-61 02:46:00 Test Item Value Reference Range Interpretation Comments PTT (test code = PTT) 37.1 s 22.9-35.8 [facility] CentralOizjymsAUWXZJUZVK6504-60-37 02:46:00 Test Item Value Reference Range Interpretation Comments RDW (test code = RDW) 14.8 11.5-14.5 [facility] CentralEwwyhpcJYPPRKABFE0205-45-07 02:46:00 Test Item Value Reference Range Interpretation Comments Platelet (test code = Platelet) 143 133-450 [facility] CentralYnkabdcRYFKXRBOBO5220-89-88 02:46:00 Test Item Value Reference Range Interpretation Comments MPV (test code = MPV) 7.6 7.4-10.4 [facility] HospitalLxnjtkeHILMPYKXDR4389-40-84 02:46:00 Test Item Value Reference Range Interpretation Comments RBC (test code = RBC) 2.83 4.70-6.10 [facility] HospitalJtxygypLJYIPZYHLX0828-11-19 02:46:00 Test Item Value Reference Range Interpretation Comments WBC (test code = WBC) 4.1 3.7-10.4 [facility] HospitalKcxuvvtMBIGAVKLWM0609-86-29 02:46:00 Test Item Value Reference Range Interpretation Comments MCHC (test code = MCHC) 35.2 32.0-36.0 [facility] HospitalQifbwofRTKELBEGIP8874-92-55 02:46:00 Test Item Value Reference Range Interpretation Comments MCH (test code = MCH) 28.8 pg 27.0-31.0 [facility] HospitalNwcaompRBIDISENDJ0255-61-37 02:46:00 Test Item Value Reference Range Interpretation Comments Hgb (test code = Hgb) 8.1 14.0-18.0 [facility] HospitalBxqgxcoSEXNJTNZJP5432-50-15 02:46:00 Test Item Value Reference Range Interpretation Comments MCV (test code = MCV) 81.9 80.0-94.0 [facility]RmspoqoTTCARDLKHK5508-90-40 02:46:00 Test Item Value Reference Range Interpretation Comments Hct (test code = Hct) 23.2 42.0-54.0 [facility]12Return [id number] 02:46:00 Test Item Value Reference Range Interpretation Comments proBNP (test code = 56311 See_Comment [Automa emerson message] The proBNP) system which ge nerated this result tra nsmitted reference range : <=125. The reference r yared was not used to int erpret this result as erinn l/abnormal. [facility] HospitalHackMyPicLEMLNWJ0469-35-46 02:46:00 Test Item Value Reference Range Interpretation Comments Troponin-I (test code no gt See_Comment [Auto mated message] The = Troponin-I) system which g enerated this result transmit emerson reference range : <=0.40. The reference r yared was not used to interpr et this result as erinn l/abnormal. [facility] 02:46[facility]00 Test Item Value Reference Range Interpretation Comments Total CK (test code = Total CK) 91 12-191 [facility]2018-10-14 02:46:00 Test Item Value Reference Range Interpretation Comments Lipase Lvl (test code = Lipase Lvl) 95 73-393 [facility]2018-10-14 02:46:00 Test Item Value Reference Range Interpretation Comments Globulin (test code = Globulin) 3.2 2.7-4.2 [facility]2018-10-14 02:46:00 Test Item Value Reference Range Interpretation Comments A/G Ratio (test code = A/G Ratio) 0.9 1 0.7-1.6 [facility]2018-10-14 02:46:00 Test Item Value Reference Range Interpretation Comments B/C Ratio (test code = B/C Ratio) 5 1 6-25 [facility]2018-10-14 02:46:00 Test Item Value Reference Range Interpretation Comments AGAP (test code = AGAP) 18.7 10.0-20.0 [facility]2018-10-14 02:46:00 Test Item Value Reference Range Interpretation Comments eGFR (test code = eGFR) 2 [facility]2018-10-14 02:46:00 Test Item Value Reference Range Interpretation Comments Calcium Lvl (test code = Calcium Lvl) 7.6 8.5-10.5 [facility]2018-10-14 02:46:00 Test Item Value Reference Range Interpretation Comments CO2 (test code = CO2) 24 24-32 [facility]2018-10-14 02:46:00 Test Item Value Reference Range Interpretation Comments Chloride Lvl (test code = Chloride Lvl) 98 95-109 [facility]2018-10-14 02:46:00 Test Item Value Reference Range Interpretation Comments Potassium Lvl (test code = Potassium 4.7 3.5-5.1 Lvl) [facility]2018-10-14 02:46:00 Test Item Value Reference Range Interpretation Comments Sodium Lvl (test code = Sodium Lvl) 136 135-145 [facility]2018-10-14 02:46:00 Test Item Value Reference Range Interpretation Comments Albumin Lvl (test code = Albumin Lvl) 2.8 3.5-5.0 [facility]2018-10-14 02:46:00 Test Item Value Reference Range Interpretation Comments ALT (test code = ALT) 13 See_Comment [Auto mated message] The system which ge nerated this result transmit emerson reference range : <=65. The reference range was not used to interpr et this result as erinn l/abnormal. [place] 597388-10-14 02:46:00 Test Item Value Reference Range Interpretation Comments AST (test code = AST) 9 See_Comment [Auto mated message] The system which ge nerated this result transmit emerson reference range : <=37. The reference range was not used to interpr et this result as erinn l/abnormal. [place] 597388-10-14 02:46:00 Test Item Value Reference Range Interpretation Comments Alk Phos (test code = Alk Phos) 57 39-136 [place] 597388-10-14 02:46:00 Test Item Value Reference Range Interpretation Comments Total Protein (test code = Total 6.0 6.4-8.4 Protein) [address]10-14 02:46:00 Test Item Value Reference Range Interpretation Comments Bili Total (test code = Bili Total) 0.4 0.2-1.3 [place] 597388-10-14 02:46:00 Test Item Value Reference Range Interpretation Comments Creatinine Lvl (test code = Creatinine 18.60 0.50-1.40 Lvl) [place] 597388-10-14 02:46:00 Test Item Value Reference Range Interpretation Comments Glucose Lvl (test code = Glucose Lvl) 89 70-99 [place] 597388-10-14 02:46:00 Test Item Value Reference Range Interpretation Comments BUN (test code = BUN) 95 7-22 [facility] CentralFvbhlsbVAIWJSAYGK5877-31-00 02:46:00 Test Item Value Reference Range Interpretation Comments Segs (test code = Segs) 66.2 45.0-75.0 [place] 531388-10-14 02:46:00 Test Item Value Reference Range Interpretation Comments Lymphocytes (test code = Lymphocytes) 21.4 20.0-40.0 [place] 531388-10-14 02:46:00 Test Item Value Reference Range Interpretation Comments Monocytes (test code = Monocytes) 7.7 2.0-12.0 [facility] CentralZvdfykaTYYCMWPSWI5293-66-28 02:46:00 Test Item Value Reference Range Interpretation Comments Lymphocytes # (test code = Lymphocytes 0.9 1.0-5.5 #) [facility] CentralGcwqtikGQPGUZWSXS0820-89-39 02:46:00 Test Item Value Reference Range Interpretation Comments Basophils (test code = 1.2 See_Comment [Aut omated message] The Basophils) system which ge nerated this result tra nsmitted reference range : <=1.0. The reference r yared was not used to int erpret this result as normal/abnormal . [facility] CentralLzqlgtqRSCCGGNHJD4743-39-67 02:46:00 Test Item Value Reference Range Interpretation Comments Monocytes # (test code 0.3 See_Comment [Aut omated message] The = Monocytes #) system which generated this result tra nsmitted reference range : <=0.8. The reference r yared was not used to int erpret this result as normal/abnormal . [facility] CentralPrphctcLDAZGCOPZF8696-21-73 02:46:00 Test Item Value Reference Range Interpretation Comments Eosinophils # (test code 0.1 See_Comment [A utomated message] The = Eosinophils #) system whic h generated this result tra nsmitted reference range : <=0.5. The reference r yared was not used to int erpret this result as normal/abnormal . [facility] CentralXnadyukRVNKKTGMNF3750-10-22 02:46:00 Test Item Value Reference Range Interpretation Comments Neutrophils # (test code = Neutrophils 2.7 1.5-8.1 #) [facility] CentralUdqfrkbVYRDZBNKES3743-19-58 02:46:00 Test Item Value Reference Range Interpretation Comments Eosinophils (test code = 3.5 See_Comment [A utomated message] The Eosinophils) system which ge nerated this result tra nsmitted reference range : <=4.0. The reference r yared was not used to int erpret this result as normal/abnormal . [facility] CentralYaubnucJKXOPLRNBH0480-82-45 02:46:00 Test Item Value Reference Range Interpretation Comments PT (test code = PT) 14.4 s 12.0-14.7 [facility] CentralNprrvxjYZPETROHPZ2077-85-45 02:46:00 Test Item Value Reference Range Interpretation Comments INR (test code = INR) 1.12 1 0.85-1.17 [facility] CentralSmxzhnaFSMQRBOCEY4611-69-26 02:46:00 Test Item Value Reference Range Interpretation Comments PTT (test code = PTT) 37.1 s 22.9-35.8 [facility] CentralEraweilCATNHBJCXD8645-65-75 02:46:00 Test Item Value Reference Range Interpretation Comments RDW (test code = RDW) 14.8 11.5-14.5 [facility] CentralOhlnoubFNOUPJRZSN0125-59-09 02:46:00 Test Item Value Reference Range Interpretation Comments Platelet (test code = Platelet) 143 133-450 [facility] CentralAwbuylsZNWDMUIZWE4204-92-34 02:46:00 Test Item Value Reference Range Interpretation Comments MPV (test code = MPV) 7.6 7.4-10.4 [facility] CentralIgpxecdPRGPDORTGQ7266-24-00 02:46:00 Test Item Value Reference Range Interpretation Comments RBC (test code = RBC) 2.83 4.70-6.10 [facility] CentralNzfujfwRQKSJLGBDY6950-18-48 02:46:00 Test Item Value Reference Range Interpretation Comments WBC (test code = WBC) 4.1 3.7-10.4 [facility] CentralYmtvnlqTZDYNESEHD6819-48-81 02:46:00 Test Item Value Reference Range Interpretation Comments MCHC (test code = MCHC) 35.2 32.0-36.0 [facility] CentralBdpfqimLVVRFVNWLF8898-88-14 02:46:00 Test Item Value Reference Range Interpretation Comments MCH (test code = MCH) 28.8 pg 27.0-31.0 [facility] CentralHzxrpmjLNPOIJPHZJ0715-12-32 02:46:00 Test Item Value Reference Range Interpretation Comments Hgb (test code = Hgb) 8.1 14.0-18.0 [facility] CentralFuszamfHUYWDPGEHD2564-67-52 02:46:00 Test Item Value Reference Range Interpretation Comments MCV (test code = MCV) 81.9 80.0-94.0 [facility] CentralTndxlpaVPMSSIJIJM5273-56-79 02:46:00 Test Item Value Reference Range Interpretation Comments Hct (test code = Hct) 23.2 42.0-54.0 [facility]2018-10-12 22:52:00 Test Item Value Reference Range Interpretation Comments BUN (test code = BUN) 86 7-22 [facility]2018-10-12 22:52:00 Test Item Value Reference Range Interpretation Comments Chloride Lvl (test code = Chloride Lvl) 97 95-109 [facility]2018-10-12 22:52:00 Test Item Value Reference Range Interpretation Comments Potassium Lvl (test code = Potassium 5.2 3.5-5.1 Lvl) [facility]2018-10-12 22:52:00 Test Item Value Reference Range Interpretation Comments Sodium Lvl (test code = Sodium Lvl) 135 135-145 [facility]2018-10-12 22:52:00 Test Item Value Reference Range Interpretation Comments Creatinine Lvl (test code = Creatinine 17.30 0.50-1.40 Lvl) [facility]2018-10-12 22:52:00 Test Item Value Reference Range Interpretation Comments Glucose Lvl (test code = Glucose Lvl) 98 70-99 [facility]2018-10-12 22:52:00 Test Item Value Reference Range Interpretation Comments eGFR (test code = eGFR) 3 [facility]2018-10-12 22:52:00 Test Item Value Reference Range Interpretation Comments Alk Phos (test code = Alk Phos) 70 39-136 [facility]2018-10-12 22:52:00 Test Item Value Reference Range Interpretation Comments AST (test code = AST) 10 See_Comment [Auto mated message] The system which ge nerated this result transmit emerson reference range : <=37. The reference range was not used to interpr et this result as erinn l/abnormal. [facility]2018-10-12 22:52:00 Test Item Value Reference Range Interpretation Comments Bili Total (test code = Bili Total) 0.4 0.2-1.3 [facility]2018-10-12 22:52:00 Test Item Value Reference Range Interpretation Comments Total Protein (test code = Total 6.8 6.4-8.4 Protein) [facility]2018-10-12 22:52:00 Test Item Value Reference Range Interpretation Comments Calcium Lvl (test code = Calcium Lvl) 8.1 8.5-10.5 [facility]2018-10-12 22:52:00 Test Item Value Reference Range Interpretation Comments CO2 (test code = CO2) 24 24-32 [facility]2018-10-12 22:52:00 Test Item Value Reference Range Interpretation Comments ALT (test code = ALT) 19 See_Comment [Auto mated message] The system which ge nerated this result transmit emerson reference range : <=65. The reference range was not used to interpr et this result as erinn l/abnormal. [facility]2018-10-12 22:52:00 Test Item Value Reference Range Interpretation Comments Albumin Lvl (test code = Albumin Lvl) 3.3 3.5-5.0 [facility]2018-10-12 22:52:00 Test Item Value Reference Range Interpretation Comments A/G Ratio (test code = A/G Ratio) 0.9 1 0.7-1.6 [facility]2018-10-12 22:52:00 Test Item Value Reference Range Interpretation Comments AGAP (test code = AGAP) 19.2 10.0-20.0 [facility]2018-10-12 22:52:00 Test Item Value Reference Range Interpretation Comments Globulin (test code = Globulin) 3.5 2.7-4.2 [facility]2018-10-12 22:52:00 Test Item Value Reference Range Interpretation Comments B/C Ratio (test code = B/C Ratio) 5 1 6-25 [facility] CentralSkikjafWMFBJDCVJK8015-78-75 22:52:00 Test Item Value Reference Range Interpretation Comments Platelet (test code = Platelet) 184 133-450 [facility] CentralFndnmqsBXLWLEROTO7422-98-58 22:52:00 Test Item Value Reference Range Interpretation Comments MPV (test code = MPV) 6.8 7.4-10.4 [facility] CentralMaktkohMOZJXKKUGB5961-31-14 22:52:00 Test Item Value Reference Range Interpretation Comments MCHC (test code = MCHC) 35.4 32.0-36.0 [facility] CentralBywiprzQTJWTRLFFG6243-76-02 22:52:00 Test Item Value Reference Range Interpretation Comments RDW (test code = RDW) 15.1 11.5-14.5 [facility] CentralBxnkaemMXOUTTHMLN5511-49-94 22:52:00 Test Item Value Reference Range Interpretation Comments Hct (test code = Hct) 26.1 42.0-54.0 [facility] CentralZlpspcsBHLGAEJAPO9214-12-72 22:52:00 Test Item Value Reference Range Interpretation Comments MCV (test code = MCV) 81.4 80.0-94.0 [facility] CentralQoriekmTSQAFLGVRK3587-20-33 22:52:00 Test Item Value Reference Range Interpretation Comments MCH (test code = MCH) 28.8 pg 27.0-31.0 [facility] CentralGzpjazyWZZWLAHDJZ4513-70-79 22:52:00 Test Item Value Reference Range Interpretation Comments WBC (test code = WBC) 5.4 3.7-10.4 [facility] CentralYlxlzjsOYILCYBKWC3891-12-87 22:52:00 Test Item Value Reference Range Interpretation Comments RBC (test code = RBC) 3.20 4.70-6.10 [facility] CentralYhmbzelGBTMYYGURC4385-29-42 22:52:00 Test Item Value Reference Range Interpretation Comments Hgb (test code = Hgb) 9.2 14.0-18.0 [facility] CentralBrjgzssHGCKCCERIL5404-21-08 22:52:00 Test Item Value Reference Range Interpretation Comments Segs (test code = Segs) 74.0 45.0-75.0 [facility] CentralXsdgimhRXTQVAYEAH9493-18-53 22:52:00 Test Item Value Reference Range Interpretation Comments Lymphocytes (test code = Lymphocytes) 15.5 20.0-40.0 [facility] CentralXjnfmgdMCGHVMWWLL9540-40-78 22:52:00 Test Item Value Reference Range Interpretation Comments Monocytes (test code = Monocytes) 6.7 2.0-12.0 [facility] CentralFfgpoyeATYEGKKFAL6399-61-17 22:52:00 Test Item Value Reference Range Interpretation Comments Eosinophils (test code = 2.8 See_Comment [A utomated message] The Eosinophils) system which ge nerated this result tra nsmitted reference range : <=4.0. The reference r yared was not used to int erpret this result as normal/abnormal . [facility] CentralSojgpoxTTJOCWREWI3102-01-53 22:52:00 Test Item Value Reference Range Interpretation Comments Basophils (test code = 1.0 See_Comment [Aut omated message] The Basophils) system which ge nerated this result tra nsmitted reference range : <=1.0. The reference r yared was not used to int erpret this result as normal/abnormal . [facility] CentralIctkjlqGKQNYHDWWP2466-32-45 22:52:00 Test Item Value Reference Range Interpretation Comments Neutrophils # (test code = Neutrophils 4.0 1.5-8.1 #) [facility] CentralKalfyruFULQTSZOXM2533-95-19 22:52:00 Test Item Value Reference Range Interpretation Comments Basophils # (test code 0.1 See_Comment [Aut omated message] The = Basophils #) system which generated this result tra nsmitted reference range : <=0.2. The reference r yared was not used to int erpret this result as normal/abnormal . [facility] CentralWgidkxwCALQWWAHDH5353-47-21 22:52:00 Test Item Value Reference Range Interpretation Comments Eosinophils # (test code 0.2 See_Comment [A utomated message] The = Eosinophils #) system whic h generated this result tra nsmitted reference range : <=0.5. The reference r yared was not used to int erpret this result as normal/abnormal . [facility] CentralJbutdzgZTDCAZACQU8323-38-77 22:52:00 Test Item Value Reference Range Interpretation Comments Lymphocytes # (test code = Lymphocytes 0.8 1.0-5.5 #) [facility] CentralSncldcvIBAMYOVZPV0689-12-15 22:52:00 Test Item Value Reference Range Interpretation Comments Monocytes # (test code 0.4 See_Comment [Aut omated message] The = Monocytes #) system which generated this result tra nsmitted reference range : <=0.8. The reference r yared was not used to int erpret this result as normal/abnormal . [facility]2018-10-12 22:52:00 Test Item Value Reference Range Interpretation Comments BUN (test code = BUN) 86 7-22 [facility]2018-10-12 22:52:00 Test Item Value Reference Range Interpretation Comments Chloride Lvl (test code = Chloride Lvl) 97 95-109 [facility]2018-10-12 22:52:00 Test Item Value Reference Range Interpretation Comments Potassium Lvl (test code = Potassium 5.2 3.5-5.1 Lvl) [facility]2018-10-12 22:52:00 Test Item Value Reference Range Interpretation Comments Sodium Lvl (test code = Sodium Lvl) 135 135-145 [facility]2018-10-12 22:52:00 Test Item Value Reference Range Interpretation Comments Creatinine Lvl (test code = Creatinine 17.30 0.50-1.40 Lvl) [facility]2018-10-12 22:52:00 Test Item Value Reference Range Interpretation Comments Glucose Lvl (test code = Glucose Lvl) 98 70-99 [facility]2018-10-12 22:52:00 Test Item Value Reference Range Interpretation Comments eGFR (test code = eGFR) 3 [facility]2018-10-12 22:52:00 Test Item Value Reference Range Interpretation Comments Alk Phos (test code = Alk Phos) 70 39-136 [facility]2018-10-12 22:52:00 Test Item Value Reference Range Interpretation Comments AST (test code = AST) 10 See_Comment [Auto mated message] The system which ge nerated this result transmit emerson reference range : <=37. The reference range was not used to interpr et this result as erinn l/abnormal. [facility]2018-10-12 22:52:00 Test Item Value Reference Range Interpretation Comments Bili Total (test code = Bili Total) 0.4 0.2-1.3 [facility]2018-10-12 22:52:00 Test Item Value Reference Range Interpretation Comments Total Protein (test code = Total 6.8 6.4-8.4 Protein) [facility]2018-10-12 22:52:00 Test Item Value Reference Range Interpretation Comments Calcium Lvl (test code = Calcium Lvl) 8.1 8.5-10.5 [facility]2018-10-12 22:52:00 Test Item Value Reference Range Interpretation Comments CO2 (test code = CO2) 24 24-32 [facility]2018-10-12 22:52:00 Test Item Value Reference Range Interpretation Comments ALT (test code = ALT) 19 See_Comment [Auto mated message] The system which ge nerated this result transmit emerson reference range : <=65. The reference range was not used to interpr et this result as erinn l/abnormal. [facility]2018-10-12 22:52:00 Test Item Value Reference Range Interpretation Comments Albumin Lvl (test code = Albumin Lvl) 3.3 3.5-5.0 [facility]2018-10-12 22:52:00 Test Item Value Reference Range Interpretation Comments A/G Ratio (test code = A/G Ratio) 0.9 1 0.7-1.6 [facility]2018-10-12 22:52:00 Test Item Value Reference Range Interpretation Comments AGAP (test code = AGAP) 19.2 10.0-20.0 [facility]2018-10-12 22:52:00 Test Item Value Reference Range Interpretation Comments Globulin (test code = Globulin) 3.5 2.7-4.2 [facility]2018-10-12 22:52:00 Test Item Value Reference Range Interpretation Comments B/C Ratio (test code = B/C Ratio) 5 1 6-25 [facility] CentralFhaodovONTSMCFEBD7643-05-27 22:52:00 Test Item Value Reference Range Interpretation Comments Platelet (test code = Platelet) 184 133-450 [facility] CentralYtuxpprBUZZPGVPVH3057-45-09 22:52:00 Test Item Value Reference Range Interpretation Comments MPV (test code = MPV) 6.8 7.4-10.4 [facility] CentralOwzvehkJWNABOXFNJ8427-91-89 22:52:00 Test Item Value Reference Range Interpretation Comments MCHC (test code = MCHC) 35.4 32.0-36.0 [facility] CentralBfvyqxkBOXWPZVXNH0008-10-81 22:52:00 Test Item Value Reference Range Interpretation Comments RDW (test code = RDW) 15.1 11.5-14.5 [facility] CentralRnzdveqHZZXUZUSZD2744-04-05 22:52:00 Test Item Value Reference Range Interpretation Comments Hct (test code = Hct) 26.1 42.0-54.0 [facility] CentralCmgncfhJXTOPXTMYU4932-43-06 22:52:00 Test Item Value Reference Range Interpretation Comments MCV (test code = MCV) 81.4 80.0-94.0 [facility] CentralQigwjsgJIIYRLQFAG1412-87-02 22:52:00 Test Item Value Reference Range Interpretation Comments MCH (test code = MCH) 28.8 pg 27.0-31.0 [facility] CentralOobuphmMPVYTYEOQQ2389-53-14 22:52:00 Test Item Value Reference Range Interpretation Comments WBC (test code = WBC) 5.4 3.7-10.4 [facility] CentralEecnjaqMWPUSKBXTO2404-02-02 22:52:00 Test Item Value Reference Range Interpretation Comments RBC (test code = RBC) 3.20 4.70-6.10 [facility] CentralHjacbwlWAOBXHXSEM1660-30-85 22:52:00 Test Item Value Reference Range Interpretation Comments Hgb (test code = Hgb) 9.2 14.0-18.0 [facility] CentralKswjnxyAULASYKGYM8708-36-73 22:52:00 Test Item Value Reference Range Interpretation Comments Segs (test code = Segs) 74.0 45.0-75.0 [facility] CentralHbgpuvlEEEWNPYUWW9078-81-46 22:52:00 Test Item Value Reference Range Interpretation Comments Lymphocytes (test code = Lymphocytes) 15.5 20.0-40.0 [facility] CentralOlibydsDCBANUXBIZ6601-68-06 22:52:00 Test Item Value Reference Range Interpretation Comments Monocytes (test code = Monocytes) 6.7 2.0-12.0 [facility] CentralOzrpptoLARPVDPGLR1173-05-52 22:52:00 Test Item Value Reference Range Interpretation Comments Eosinophils (test code = 2.8 See_Comment [A utomated message] The Eosinophils) system which ge nerated this result tra nsmitted reference range : <=4.0. The reference r yared was not used to int erpret this result as normal/abnormal . [facility] CentralKtnqekkFJBZPLSBWU8153-20-64 22:52:00 Test Item Value Reference Range Interpretation Comments Basophils (test code = 1.0 See_Comment [Aut omated message] The Basophils) system which ge nerated this result tra nsmitted reference range : <=1.0. The reference r yared was not used to int erpret this result as normal/abnormal . [facility] CentralZdbzavnXILOYZVOLA2593-78-20 22:52:00 Test Item Value Reference Range Interpretation Comments Neutrophils # (test code = Neutrophils 4.0 1.5-8.1 #) [facility] CentralZyeffcjKJPYEWCNRB9531-08-89 22:52:00 Test Item Value Reference Range Interpretation Comments Basophils # (test code 0.1 See_Comment [Aut omated message] The = Basophils #) system which generated this result tra nsmitted reference range : <=0.2. The reference r yared was not used to int erpret this result as normal/abnormal . [facility] CentralJibiaweWCRUJMQKPG5371-52-39 22:52:00 Test Item Value Reference Range Interpretation Comments Eosinophils # (test code 0.2 See_Comment [A utomated message] The = Eosinophils #) system whic h generated this result tra nsmitted reference range : <=0.5. The reference r yared was not used to int erpret this result as normal/abnormal . [id number] 22:52:00 Test Item Value Reference Range Interpretation Comments Lymphocytes # (test code = Lymphocytes 0.8 1.0-5.5 #) [facility] [id number] 22:52:00 Test Item Value Reference Range Interpretation Comments Monocytes # (test code 0.4 See_Comment [Aut omated message] The = Monocytes #) system which generated this result tra nsmitted reference range : <=0.8. The reference r yared was not used to int erpret this result as normal/abnormal . [facility]2018-10-12 22:52:00 Test Item Value Reference Range Interpretation Comments BUN (test code = BUN) 86 7-22 [facility]2018-10-12 22:52:00 Test Item Value Reference Range Interpretation Comments Chloride Lvl (test code = Chloride Lvl) 97 95-109 [facility]2018-10-12 22:52:00 Test Item Value Reference Range Interpretation Comments Potassium Lvl (test code = Potassium 5.2 3.5-5.1 Lvl) [facility]2018-10-12 22:52:00 Test Item Value Reference Range Interpretation Comments Sodium Lvl (test code = Sodium Lvl) 135 135-145 [facility]2018-10-12 22:52:00 Test Item Value Reference Range Interpretation Comments Creatinine Lvl (test code = Creatinine 17.30 0.50-1.40 Lvl) [facility]2018-10-12 22:52:00 Test Item Value Reference Range Interpretation Comments Glucose Lvl (test code = Glucose Lvl) 98 70-99 [facility]2018-10-12 22:52:00 Test Item Value Reference Range Interpretation Comments eGFR (test code = eGFR) 3 [facility]2018-10-12 22:52:00 Test Item Value Reference Range Interpretation Comments Alk Phos (test code = Alk Phos) 70 39-136 [facility]2018-10-12 22:52:00 Test Item Value Reference Range Interpretation Comments AST (test code = AST) 10 See_Comment [Auto mated message] The system which ge nerated this result transmit emerson reference range : <=37. The reference range was not used to interpr et this result as erinn l/abnormal. [facility]2018-10-12 22:52:00 Test Item Value Reference Range Interpretation Comments Bili Total (test code = Bili Total) 0.4 0.2-1.3 [facility]2018-10-12 22:52:00 Test Item Value Reference Range Interpretation Comments Total Protein (test code = Total 6.8 6.4-8.4 Protein) [facility]2018-10-12 22:52:00 Test Item Value Reference Range Interpretation Comments Calcium Lvl (test code = Calcium Lvl) 8.1 8.5-10.5 [facility]2018-10-12 22:52:00 Test Item Value Reference Range Interpretation Comments CO2 (test code = CO2) 24 24-32 [facility]2018-10-12 22:52:00 Test Item Value Reference Range Interpretation Comments ALT (test code = ALT) 19 See_Comment [Auto mated message] The system which ge nerated this result transmit emerson reference range : <=65. The reference range was not used to interpr et this result as erinn l/abnormal. [facility]2018-10-12 22:52:00 Test Item Value Reference Range Interpretation Comments Albumin Lvl (test code = Albumin Lvl) 3.3 3.5-5.0 [facility]2018-10-12 22:52:00 Test Item Value Reference Range Interpretation Comments A/G Ratio (test code = A/G Ratio) 0.9 1 0.7-1.6 [facility]2018-10-12 22:52:00 Test Item Value Reference Range Interpretation Comments AGAP (test code = AGAP) 19.2 10.0-20.0 [facility]2018-10-12 22:52:00 Test Item Value Reference Range Interpretation Comments Globulin (test code = Globulin) 3.5 2.7-4.2 [facility]2018-10-12 22:52:00 Test Item Value Reference Range Interpretation Comments B/C Ratio (test code = B/C Ratio) 5 1 6-25 [facility] [id number] 22:52:00 Test Item Value Reference Range Interpretation Comments Platelet (test code = Platelet) 184 133-450 [facility] CentralQwwmbswYCJPSXVUBU5213-15-48 22:52:00 Test Item Value Reference Range Interpretation Comments MPV (test code = MPV) 6.8 7.4-10.4 [facility] CentralZdjcynkWJEDZHULSV4724-31-93 22:52:00 Test Item Value Reference Range Interpretation Comments MCHC (test code = MCHC) 35.4 32.0-36.0 [facility] CentralStgwearEBBKJKITYP4744-75-38 22:52:00 Test Item Value Reference Range Interpretation Comments RDW (test code = RDW) 15.1 11.5-14.5 [facility] CentralGmeazjoMATCRJWHXI0444-01-24 22:52:00 Test Item Value Reference Range Interpretation Comments Hct (test code = Hct) 26.1 42.0-54.0 [facility] CentralPerjiukQREJUCFFPO7615-56-68 22:52:00 Test Item Value Reference Range Interpretation Comments MCV (test code = MCV) 81.4 80.0-94.0 [facility] CentralBmzjackIIKXVJMORS0393-40-10 22:52:00 Test Item Value Reference Range Interpretation Comments MCH (test code = MCH) 28.8 pg 27.0-31.0 [facility] CentralGawqfnhGBGDTMYHRL6505-52-30 22:52:00 Test Item Value Reference Range Interpretation Comments WBC (test code = WBC) 5.4 3.7-10.4 [facility] CentralAncwwzcTMOQVTIDJV1600-00-20 22:52:00 Test Item Value Reference Range Interpretation Comments RBC (test code = RBC) 3.20 4.70-6.10 [facility] CentralSicvskjAKPWDPFMGT9063-26-63 22:52:00 Test Item Value Reference Range Interpretation Comments Hgb (test code = Hgb) 9.2 14.0-18.0 [facility] CentralOiwjqqpGTRZBKYWPE6251-89-84 22:52:00 Test Item Value Reference Range Interpretation Comments Segs (test code = Segs) 74.0 45.0-75.0 [facility] CentralIarvdliPMSSVJMXUX8337-24-42 22:52:00 Test Item Value Reference Range Interpretation Comments Lymphocytes (test code = Lymphocytes) 15.5 20.0-40.0 [facility] CentralCxquqrsQDXPCGXVMF4979-07-72 22:52:00 Test Item Value Reference Range Interpretation Comments Monocytes (test code = Monocytes) 6.7 2.0-12.0 [facility] CentralNpbfyajNFXQIXVJQU8383-76-36 22:52:00 Test Item Value Reference Range Interpretation Comments Eosinophils (test code = 2.8 See_Comment [A utomated message] The Eosinophils) system which ge nerated this result tra nsmitted reference range : <=4.0. The reference r yared was not used to int erpret this result as normal/abnormal . [facility] Ce[id number] 22:52:00 Test Item Value Reference Range Interpretation Comments Basophils (test code = 1.0 See_Comment [Aut omated message] The Basophils) system which ge nerated this result tra nsmitted reference range : <=1.0. The reference r yared was not used to int erpret this result as normal/abnormal . [facility] CentralPvdgongLLADDFQXGT8183-43-05 22:52:00 Test Item Value Reference Range Interpretation Comments Neutrophils # (test code = Neutrophils 4.0 1.5-8.1 #) [facility] CentralIvknzexTEKQQQQKTV1232-49-80 22:52:00 Test Item Value Reference Range Interpretation Comments Basophils # (test code 0.1 See_Comment [Aut omated message] The = Basophils #) system which generated this result tra nsmitted reference range : <=0.2. The reference r yared was not used to int erpret this result as normal/abnormal . [facility] CentralXtzkgpyHIFNMKTQKH9988-40-50 22:52:00 Test Item Value Reference Range Interpretation Comments Eosinophils # (test code 0.2 See_Comment [A utomated message] The = Eosinophils #) system [facility] generated this result tra nsmitted reference range : <=0.5. The reference r yared was not used to int erpret this result as normal/abnormal . [facility] CentralVtbpyxkBLMIYIRXBU3423-52-48 22:52:00 Test Item Value Reference Range Interpretation Comments Lymphocytes # (test code = Lymphocytes 0.8 1.0-5.5 #) [facility] [id number] 22:52:00 Test Item Value Reference Range Interpretation Comments Monocytes # (test code 0.4 See_Comment [Aut omated message] The = Monocytes #) system which generated this result tra nsmitted reference range : <=0.8. The reference r yared was not used to int erpret this result as normal/abnormal . [facility] [id number] 15:54:00 Test Item Value Reference Range Interpretation Comments Test Name (test code = HLA TYPING RESULTS Test Name) [facility] LAB [id number] 15:54:00 Test Item Value Reference Range Interpretation Comments Test Name (test code = HLA TYPING RESULTS Test Name) [facility] LAB [id number] 15:54:00 Test Item Value Reference Range Interpretation Comments Test Name (test code = HLA TYPING RESULTS Test Name) [facility] BANK [id number] 15:20:00 Test Item Value Reference Range Interpretation Comments ABO/RH Confirm (test code = ABO/RH O POS Confirm) [facility] AND [id number] 15:20:00 Test Item Value Reference Range Interpretation Comments UA Renal Epi (test code = UA Renal Epi) RARE [facility] AND [id number] 15:20:00 Test Item Value Reference Range Interpretation Comments UA Urobilinogen (test code = UA <=1.0 mg/dL 0.1-1.0 Urobilinogen) [facility] AND [id number] 15:20:00 Test Item Value Reference Range Interpretation Comments UA Glucose (test code = UA Glucose) 100mg/dL [facility] AND [id number] 15:20:00 Test Item Value Reference Range Interpretation Comments UA Sq Epi (test code = UA Sq Moderate /LPF Epi) [facility] AND [id number] 15:20:00 Test Item Value Reference Range Interpretation Comments UA Leuk Est (test code Small *ABN*(05/23/18 = UA Leuk Est) 10:20 AM) [facility] AND [id number] 15:20:00 Test Item Value Reference Range Interpretation Comments UA Ketones (test code = UA Negative mg/dL Ketones) [facility] AND [id number] 15:20:00 Test Item Value Reference Range Interpretation Comments UA RBC (test code = no gt See_Comment [Automa emerson message] The UA RBC) system which ge nerated this result transmit emerson reference range : <=2. The reference range was not used to interpr et this result as erinn l/abnormal. [facility] [id number] 15:20:00 Test Item Value Reference Range Interpretation Comments UA WBC (test code = 9 See_Comment [Automa emerson message] The UA WBC) system which ge nerated this result transmit emerson reference range : <=5. The reference range was not used to interpr et this result as erinn l/abnormal. [facility] [id number] 15:20:00 Test Item Value Reference Range Interpretation Comments UA Nitrite (test code Negative (05/23/18 10:20 = UA Nitrite) AM) [facility] [id number] 15:20:00 Test Item Value Reference Range Interpretation Comments UA Blood (test code = Trace *ABN*(05/23/18 UA Blood) 10:20 AM) [facility] [id number] 15:20:00 Test Item Value Reference Range Interpretation Comments UA Bili (test code = Negative *NA*(05/23/18 UA Bili) 10:20 AM) [facility] [id number] 15:20:00 Test Item Value Reference Range Interpretation Comments UA Mucus (test code = UA Mucus) Few /LPF [facility] [id number] 15:20:00 Test Item Value Reference Range Interpretation Comments UA Protein (test code = UA >=300 mg/dL Protein) [facility] [id number] 15:20:00 Test Item Value Reference Range Interpretation Comments UA pH (test code = UA pH) 6.5 1 5.0-8.0 [facility] [id number] 15:20:00 Test Item Value Reference Range Interpretation Comments UA Spec Grav (test code = UA Spec 1.008 1 Grav) [facility] [id number] 15:20:00 Test Item Value Reference Range Interpretation Comments UA Turbidity (test code Slight *ABN*(05/23/18 = UA Turbidity) 10:20 AM) [facility] [id number] 15:20:00 Test Item Value Reference Range Interpretation Comments UA Color (test code = Yellow *NA*(05/23/18 UA Color) 10:20 AM) [facility] [id number] 15:20:00 Test Item Value Reference Range Interpretation Comments U Microalb (test code = U Microalb) 2940.0 [facility] [id number] 15:20:00 Test Item Value Reference Range Interpretation Comments U Prot/Creat (test code = U 6.61 1 Prot/Creat) [facility] [id number] 15:20:00 Test Item Value Reference Range Interpretation Comments U Creatinine (test code = U Creatinine) 55.00 [facility] [id number] 15:20:00 Test Item Value Reference Range Interpretation Comments U Protein (test code = U Protein) 363.8 [facility] [id number] 15:20:00 Test Item Value Reference Range Interpretation Comments ABO/RH Confirm (test code = ABO/RH O POS Confirm) [facility] AND [id number] 15:20:00 Test Item Value Reference Range Interpretation Comments UA Renal Epi (test code = UA Renal Epi) [facility] AND [id number] 15:20:00 Test Item Value Reference Range Interpretation Comments UA Urobilinogen (test code = UA <=1.0 mg/dL 0.1-1.0 Urobilinogen) [facility] AND [id number] 15:20:00 Test Item Value Reference Range Interpretation Comments UA Glucose (test code = UA Glucose) 100mg/dL [facility] AND [id number] 15:20:00 Test Item Value Reference Range Interpretation Comments UA Sq Epi (test code = UA Sq Moderate /LPF Epi) [facility] AND [id number] 15:20:00 Test Item Value Reference Range Interpretation Comments UA Leuk Est (test code Small *ABN*(05/23/18 = UA Leuk Est) 10:20 AM) [facility] AND [id number] 15:20:00 Test Item Value Reference Range Interpretation Comments UA Ketones (test code = UA Negative mg/dL Ketones) [facility] AND [id number] 15:20:00 Test Item Value Reference Range Interpretation Comments UA RBC (test code = no gt See_Comment [Automa emerson message] The UA RBC) system which ge nerated this result transmit emerson reference range : <=2. The reference range was not used to interpr et this result as erinn l/abnormal. [facility] [id number] 15:20:00 Test Item Value Reference Range Interpretation Comments UA WBC (test code = 9 See_Comment [Automa emerson message] The UA WBC) system which ge nerated this result transmit emerson reference range : <=5. The reference range was not used to interpr et this result as erinn l/abnormal. [facility] [id number] 15:20:00 Test Item Value Reference Range Interpretation Comments UA Nitrite (test code Negative (05/23/18 10:20 = UA Nitrite) AM) [facility] [id number] 15:20:00 Test Item Value Reference Range Interpretation Comments UA Blood (test code = Trace *ABN*(05/23/18 UA Blood) 10:20 AM) [facility] [id number] 15:20:00 Test Item Value Reference Range Interpretation Comments UA Bili (test code = Negative *NA*(05/23/18 UA Bili) 10:20 AM) [facility] [id number] 15:20:00 Test Item Value Reference Range Interpretation Comments UA Mucus (test code = UA Mucus) Few /LPF [facility] AND [id number] 15:20:00 Test Item Value Reference Range Interpretation Comments UA Protein (test code = UA >=300 mg/dL Protein) [facility] [id number] 15:20:00 Test Item Value Reference Range Interpretation Comments UA pH (test code = UA pH) 6.5 1 5.0-8.0 [facility] [id number] 15:20:00 Test Item Value Reference Range Interpretation Comments UA Spec Grav (test code = UA Spec 1.008 1 Grav) [facility] [id number] 15:20:00 Test Item Value Reference Range Interpretation Comments UA Turbidity (test code Slight *ABN*(05/23/18 = UA Turbidity) 10:20 AM) [facility] [id number] 15:20:00 Test Item Value Reference Range Interpretation Comments UA Color (test code = Yellow *NA*(05/23/18 UA Color) 10:20 AM) [facility] [id number] 15:20:00 Test Item Value Reference Range Interpretation Comments U Microalb (test code = U Microalb) 2940.0 [facility] [id number] 15:20:00 Test Item Value Reference Range Interpretation Comments U Prot/Creat (test code = U 6.61 1 Prot/Creat) [facility] [id number] 15:20:00 Test Item Value Reference Range Interpretation Comments U Creatinine (test code = U Creatinine) 55.00 [facility] [id number] 15:20:00 Test Item Value Reference Range Interpretation Comments U Protein (test code = U Protein) 363.8 [facility] [id number] 15:20:00 Test Item Value Reference Range Interpretation Comments ABO/RH Confirm (test code = ABO/RH O POS Confirm) [facility] AND [id number] 15:20:00 Test Item Value Reference Range Interpretation Comments UA Renal Epi (test code = UA Renal Epi) [facility] AND [id number] 15:20:00 Test Item Value Reference Range Interpretation Comments UA Urobilinogen (test code = UA <=1.0 mg/dL 0.1-1.0 Urobilinogen) [facility] AND [id number] 15:20:00 Test Item Value Reference Range Interpretation Comments UA Glucose (test code = UA Glucose) 100mg/dL [facility] AND [id number] 15:20:00 Test Item Value Reference Range Interpretation Comments UA Sq Epi (test code = UA Sq Moderate /LPF Epi) [facility] AND [id number] 15:20:00 Test Item Value Reference Range Interpretation Comments UA Leuk Est (test code Small *ABN*(05/23/18 = UA Leuk Est) 10:20 AM) [facility] AND [id number] 15:20:00 Test Item Value Reference Range Interpretation Comments UA Ketones (test code = UA Negative mg/dL Ketones) [facility] AND [id number] 15:20:00 Test Item Value Reference Range Interpretation Comments UA RBC (test code = no gt See_Comment [Automa emerson message] The UA RBC) system which ge nerated this result transmit emerson reference range : <=2. The reference range was not used to interpr et this result as erinn l/abnormal. [facility] [id number] 15:20:00 Test Item Value Reference Range Interpretation Comments UA WBC (test code = 9 See_Comment [Automa emerson message] The UA WBC) system which ge nerated this result transmit emerson reference range : <=5. The reference range was not used to interpr et this result as erinn l/abnormal. [facility] [id number] 15:20:00 Test Item Value Reference Range Interpretation Comments UA Nitrite (test code Negative (05/23/18 10:20 = UA Nitrite) AM) [facility] [id number] 15:20:00 Test Item Value Reference Range Interpretation Comments UA Blood (test code = Trace *ABN*(05/23/18 UA Blood) 10:20 AM) [facility] [id number] 15:20:00 Test Item Value Reference Range Interpretation Comments UA Bili (test code = Negative *NA*(05/23/18 UA Bili) 10:20 AM) [facility] [id number] 15:20:00 Test Item Value Reference Range Interpretation Comments UA Mucus (test code = UA Mucus) Few /LPF [facility] [id number] 15:20:00 Test Item Value Reference Range Interpretation Comments UA Protein (test code = UA >=300 mg/dL Protein) [facility] [id number] 15:20:00 Test Item Value Reference Range Interpretation Comments UA pH (test code = UA pH) 6.5 1 5.0-8.0 [facility] [id number] 15:20:00 Test Item Value Reference Range Interpretation Comments UA Spec Grav (test code = UA Spec 1.008 1 Grav) [facility] [id number] 15:20:00 Test Item Value Reference Range Interpretation Comments UA Turbidity (test code Slight *ABN*(05/23/18 = UA Turbidity) 10:20 AM) [facility] AND [id number] 15:20:00 Test Item Value Reference Range Interpretation Comments UA Color (test code = Yellow *NA*(05/23/18 UA Color) 10:20 AM) [facility] [id number] 15:20:00 Test Item Value Reference Range Interpretation Comments U Microalb (test code = U Microalb) 2940.0 [facility]2018-08-15 15:20:00 Test Item Value Reference Range Interpretation Comments U Prot/Creat (test code = U 6.61 1 Prot/Creat) [facility]2018-08-15 15:20:00 Test Item Value Reference Range Interpretation Comments U Creatinine (test code = U Creatinine) 55.00 [facility]2018-08-15 15:20:00 Test Item Value Reference Range Interpretation Comments U Protein (test code = U Protein) 363.8 [facility]2018-08-15 14:55:00 Test Item Value Reference Range Interpretation Comments % Satur Fe (test code = % Satur Fe) 35 12-57 [facility]2018-08-15 14:55:00 Test Item Value Reference Range Interpretation Comments UIBC (test code = UIBC) 179 110-370 [facility]2018-08-15 14:55:00 Test Item Value Reference Range Interpretation Comments TIBC (test code = TIBC) 276 228-428 [facility]2018-08-15 14:55:00 Test Item Value Reference Range Interpretation Comments Iron (test code = Iron) 97 45-160 [facility]2018-08-15 14:55:00 Test Item Value Reference Range Interpretation Comments Ferritin Lvl (test code = Ferritin Lvl) 292 22-275 [facility] [id number] 14:55:00 Test Item Value Reference Range Interpretation Comments OP ABORh Int (test code = OP ABORh Int) O POS [facility]21[employer] [id number] 14:55:00 Test Item Value Reference Range Interpretation Comments Phosphorus (test code = Phosphorus) 8.0 2.5-4.5 [facility]2018-08-15 14:55:00 Test Item Value Reference Range Interpretation Comments Magnesium Lvl (test code = Magnesium 2.5 1.8-2.4 Lvl) [facility]2018-08-15 14:55:00 Test Item Value Reference Range Interpretation Comments Vitamin D, 25-OH, Total (test code = 26.3 30.0-100.0 Vitamin D, 25-OH, Total) [place] [id number] 14:55:00 Test Item Value Reference Range Interpretation Comments Uric Acid (test code = Uric Acid) 3.5 3.8-8.0 [place] [id number] 14:55:00 Test Item Value Reference Range Interpretation Comments eGFR (test code = eGFR) 7 [facility]2018-08-15 14:55:00 Test Item Value Reference Range Interpretation Comments Alk Phos (test code = Alk Phos) 80 39-136 [facility]2018-08-15 14:55:00 Test Item Value Reference Range Interpretation Comments Bili Total (test code = Bili Total) 0.4 0.2-1.3 [facility]2018-08-15 14:55:00 Test Item Value Reference Range Interpretation Comments Albumin Lvl (test code = Albumin Lvl) 4.3 3.5-5.0 [place] [id number] 14:55:00 Test Item Value Reference Range Interpretation Comments ALT (test code = ALT) 22 See_Comment [Auto mated message] The system which ge nerated this result transmit emerson reference range : <=65. The reference range was not used to interpr et this result as erinn l/abnormal. [facility]2018-08-15 14:55:00 Test Item Value Reference Range Interpretation Comments Calcium Lvl (test code = Calcium Lvl) 8.8 8.5-10.5 [facility]2018-08-15 14:55:00 Test Item Value Reference Range Interpretation Comments Total Protein (test code = Total 8.1 6.4-8.4 Protein) [facility]2018-08-15 14:55:00 Test Item Value Reference Range Interpretation Comments AST (test code = AST) 12 See_Comment [Auto mated message] The system which ge nerated this result transmit emerson reference range : <=37. The reference range was not used to interpr et this result as erinn l/abnormal. [place] [id number] 14:55:00 Test Item Value Reference Range Interpretation Comments CO2 (test code = CO2) 26 24-32 [place] [id number] 14:55:00 Test Item Value Reference Range Interpretation Comments Chloride Lvl (test code = Chloride Lvl) 97 95-109 [facility]2018-08-15 14:55:00 Test Item Value Reference Range Interpretation Comments Potassium Lvl (test code = Potassium 3.8 3.5-5.1 Lvl) [facility]2018-08-15 14:55:00 Test Item Value Reference Range Interpretation Comments Creatinine Lvl (test code = Creatinine 8.22 0.50-1.40 Lvl) [facility]2018-08-15 14:55:00 Test Item Value Reference Range Interpretation Comments Sodium Lvl (test code = Sodium Lvl) 136 135-145 [facility]2018-08-15 14:55:00 Test Item Value Reference Range Interpretation Comments BUN (test code = BUN) 59 7-22 [facility]2018-08-15 14:55:00 Test Item Value Reference Range Interpretation Comments Glucose Lvl (test code = Glucose Lvl) 98 70-99 [facility]2018-08-15 14:55:00 Test Item Value Reference Range Interpretation Comments Globulin (test code = Globulin) 3.8 2.7-4.2 [facility]2018-08-15 14:55:00 Test Item Value Reference Range Interpretation Comments A/G Ratio (test code = A/G Ratio) 1.1 1 0.7-1.6 [facility]2018-08-15 14:55:00 Test Item Value Reference Range Interpretation Comments AGAP (test code = AGAP) 16.8 10.0-20.0 [facility]21viaNet [id number] 14:55:00 Test Item Value Reference Range Interpretation Comments B/C Ratio (test code = B/C Ratio) 7 1 6-25 [facility]Product[facility] [id number] 14:55:00 Test Item Value Reference Range Interpretation Comments Phencyclidine Scr (test Negative (05/23/18 code = Phencyclidine Scr) 9:55 AM) [facility]Product[facility] [id number] 14:55:00 Test Item Value Reference Range Interpretation Comments 6-Acetylmor Scr (test Negative (05/23/18 9:55 code = 6-Acetylmor AM) Scr) [facility]Product[facility] [id number] 14:55:00 Test Item Value Reference Range Interpretation Comments Opiate Scr (test code Positive *ABN*(05/23/18 = Opiate Scr) 9:55 AM) [facility] [id number] 14:55:00 Test Item Value Reference Range Interpretation Comments Methadone Scr (test Negative (05/23/18 9:55 code = Methadone Scr) AM) [facility] [id number] 14:55:00 Test Item Value Reference Range Interpretation Comments Rosa M Scr (test code = Negative (05/23/18 9:55 Rosa M Scr) AM) [facility] [id number] 14:55:00 Test Item Value Reference Range Interpretation Comments Cutoff Values (test See Note (05/23/18 9:55 code = Cutoff Values) AM) [facility] [id number] 14:55:00 Test Item Value Reference Range Interpretation Comments Cocaine Scr (test code Negative (05/23/18 9:55 = Cocaine Scr) AM) [facility] [id number] 14:55:00 Test Item Value Reference Range Interpretation Comments Amph Scr (test code = Negative (05/23/18 9:55 Amph Scr) AM) [facility] [id number] 14:55:00 Test Item Value Reference Range Interpretation Comments Cannab Scr (test code Negative (05/23/18 9:55 = Cannab Scr) AM) [facility] [id number] 14:55:00 Test Item Value Reference Range Interpretation Comments Benzodiaz Scr (test Positive *ABN*(05/23/18 code = Benzodiaz Scr) 9:55 AM) [facility] [id number] 14:55:00 Test Item Value Reference Range Interpretation Comments Opiate Qnt (test code = See Note 2(05/23/18 Opiate Qnt) 9:55 AM) [facility] [id number] 14:55:00 Test Item Value Reference Range Interpretation Comments Benzodiaz Qnt (test code See Note 1(05/23/18 = Benzodiaz Qnt) 9:55 AM) [facility] [id number] 14:55:00 Test Item Value Reference Range Interpretation Comments Eosinophils # (test code 0.3 See_Comment [A utomated message] The = Eosinophils #) system whic h generated this result tra nsmitted reference range : <=0.5. The reference r yared was not used to int erpret this result as normal/abnormal . [facility]NqoakkvTALYSMTKJI9753-80-14 14:55:00 Test Item Value Reference Range Interpretation Comments Basophils # (test code 0.1 See_Comment [Aut omated message] The = Basophils #) system which generated this result tra nsmitted reference range : <=0.2. The reference r yared was not used to int erpret this result as normal/abnormal . [facility] CentralDhotidtXMZZWVXZJB3241-10-39 14:55:00 Test Item Value Reference Range Interpretation Comments Neutrophils # (test code = Neutrophils 3.9 1.5-8.1 #) [facility] CentralEpbauleFDPLECCTFL1294-83-87 14:55:00 Test Item Value Reference Range Interpretation Comments Lymphocytes # (test code = Lymphocytes 1.3 1.0-5.5 #) [facility] CentralZdpwvfyZZWSKWIOFF0173-09-95 14:55:00 Test Item Value Reference Range Interpretation Comments Monocytes # (test code 0.5 See_Comment [Aut omated message] The = Monocytes #) system which generated this result tra nsmitted reference range : <=0.8. The reference r yared was not used to int erpret this result as normal/abnormal . [facility] CentralIchcolsVVHSJZIXKD4872-68-72 14:55:00 Test Item Value Reference Range Interpretation Comments Basophils (test code = 0.9 See_Comment [Aut omated message] The Basophils) system which ge nerated this result tra nsmitted reference range : <=1.0. The reference r yared was not used to int erpret this result as normal/abnormal . [facility] CentralZumfcayPUFXYCHHQZ3809-42-60 14:55:00 Test Item Value Reference Range Interpretation Comments Monocytes (test code = Monocytes) 7.7 2.0-12.0 [facility] CentralSmooliqVGQBBTFDCZ9581-82-67 14:55:00 Test Item Value Reference Range Interpretation Comments Eosinophils (test code = 4.3 See_Comment [A utomated message] The Eosinophils) system which ge nerated this result tra nsmitted reference range : <=4.0. The reference r yared was not used to int erpret this result as normal/abnormal . [facility] CentralNklrihhMWTBUESQPT8787-79-74 14:55:00 Test Item Value Reference Range Interpretation Comments Lymphocytes (test code = Lymphocytes) 22.0 20.0-40.0 [facility] CentralKmnkxrsGVOCYFFFXL3859-46-22 14:55:00 Test Item Value Reference Range Interpretation Comments Segs (test code = Segs) 65.1 45.0-75.0 [facility] CentralJufyfbbQYKFQYAFRH2612-03-53 14:55:00 Test Item Value Reference Range Interpretation Comments INR (test code = INR) 1.06 1 0.85-1.17 [facility] CentralMrisrgbQKMGBYHRJE5937-21-48 14:55:00 Test Item Value Reference Range Interpretation Comments PT (test code = PT) 13.8 s 12.0-14.7 [facility] CentralXvzilhiABDAMRWGBV6952-37-66 14:55:00 Test Item Value Reference Range Interpretation Comments PTT (test code = PTT) 35.0 s 22.9-35.8 [facility] CentralIxxqrckFTLZBUWWHN8659-89-51 14:55:00 Test Item Value Reference Range Interpretation Comments RDW (test code = RDW) 18.1 11.5-14.5 [facility] CentralUjealyzGSWAYOSTGK8041-51-87 14:55:00 Test Item Value Reference Range Interpretation Comments MPV (test code = MPV) 8.0 7.4-10.4 [facility] CentralDcfkcgrJAVXCQYNPI1604-74-01 14:55:00 Test Item Value Reference Range Interpretation Comments Platelet (test code = Platelet) 228 133-450 [facility] CentralHskhxtvHQVWVCUSSN3843-26-07 14:55:00 Test Item Value Reference Range Interpretation Comments MCHC (test code = MCHC) 33.3 32.0-36.0 [facility] CentralMggsaddKHOCXFMPKN4545-71-11 14:55:00 Test Item Value Reference Range Interpretation Comments RBC (test code = RBC) 4.54 4.70-6.10 [facility] CentralLsvcutoNPGLHCKJMT6297-70-41 14:55:00 Test Item Value Reference Range Interpretation Comments WBC (test code = WBC) 6.1 3.7-10.4 [facility] CentralCjcamsgVDCLYHOXJO3242-15-72 14:55:00 Test Item Value Reference Range Interpretation Comments MCV (test code = MCV) 80.9 80.0-94.0 [facility] CentralTeowdibRJTJUUOAVG1164-37-24 14:55:00 Test Item Value Reference Range Interpretation Comments Hct (test code = Hct) 36.7 42.0-54.0 [facility] CentralTurclakWOGVOFCPTG3593-87-81 14:55:00 Test Item Value Reference Range Interpretation Comments MCH (test code = MCH) 27.0 pg 27.0-31.0 [facility] CentralSmuoqviAZECCDFBNM6627-14-36 14:55:00 Test Item Value Reference Range Interpretation Comments Hgb (test code = Hgb) 12.2 14.0-18.0 [facility] CenterYrjjppcPRUNWEQKCU2658-17-73 14:55:00 Test Item Value Reference Range Interpretation Comments Varicella IgG (test code = Varicella no gt IgG) [facility] CenterXhnsuoxDCEWBOZLUR2445-60-66 14:55:00 Test Item Value Reference Range Interpretation Comments Varicella IgM (test no gt See_Comment [Automa emerson message] The code = Varicella IgM) system which generated this result tra nsmitted reference range : <=0.90. The reference r yared was not used to int erpret this result as normal/abnormal . [facility] CenterLawiiahQTCXPUUASH8174-65-50 14:55:00 Test Item Value Reference Range Interpretation Comments Treponemal Ab (test code Non-Reactive = Treponemal Ab) *NA*(05/23/18 9:55 AM) [facility] CenterFgqkmqhOWOXEMLKHQ8031-06-10 14:55:00 Test Item Value Reference Range Interpretation Comments T-Spot.TB (test code Negative (05/23/18 9:55 = T-Spot.TB) AM) [facility] CenterWfpdzsdHOZGZNTLBC0424-79-20 14:55:00 Test Item Value Reference Range Interpretation Comments Gamma % (test code = Gamma %) 18.2 11.1-18.7 [facility] CenterCxikzyhXOQNFTXYLN8614-62-34 14:55:00 Test Item Value Reference Range Interpretation Comments Alpha 2 % (test code = Alpha 2 %) 7.8 7.0-11.9 [facility] CenterGpkosjjJTLMVOMZCY7127-26-07 14:55:00 Test Item Value Reference Range Interpretation Comments Beta % (test code = Beta %) 9.5 7.8-13.7 [facility] CenterEvtejwcZXCPWXAGPZ7998-30-45 14:55:00 Test Item Value Reference Range Interpretation Comments Albumin % (test code = Albumin %) 60.9 55.8-66.1 [facility] CenterEdlmemjQKBNCXMOMR9729-37-72 14:55:00 Test Item Value Reference Range Interpretation Comments Alpha 1 % (test code = Alpha 1 %) 3.6 2.8-4.9 [facility] CenterEqkfgnpLKHNZYRPDB8271-28-79 14:55:00 Test Item Value Reference Range Interpretation Comments Gamma Glob (test code = Gamma Glob) 1.47 0.71-1.57 [facility] CenterVipuitlIEITXIVMQE3710-74-31 14:55:00 Test Item Value Reference Range Interpretation Comments Tot Prot (SPE) (test code = Tot Prot 8.1 6.4-8.4 (SPE)) [facility] CenterDllizbmNMUDJDGSHQ5924-97-73 14:55:00 Test Item Value Reference Range Interpretation Comments Beta Glob (test code = Beta Glob) 0.77 0.50-1.15 [facility] CenterFjuiupeMSXWIOHYIR5677-06-52 14:55:00 Test Item Value Reference Range Interpretation [...] and concur with the resident's interpretation. CPT 29682-WR [facility] CenterZwnaroaTMZKNFEERD8794-76-75 14:55:00 Test Item Value Reference Range Interpretation Comments Albumin (SPE) (test code = Albumin 4.93 3.57-5.55 (SPE)) [facility] CenterRjvhyioMCHEPUIOCM0444-64-22 14:55:00 Test Item Value Reference Range Interpretation Comments Alpha 1 Glob (test code = Alpha 1 Glob) 0.29 0.18-0.41 [facility] CenterYrxsldiECTQZELDZX6684-96-18 14:55:00 Test Item Value Reference Range Interpretation Comments Alpha 2 Glob (test code = Alpha 2 Glob) 0.63 0.45-1.00 [facility] CenterZaldroqXBKOZYMIAM6524-43-57 14:55:00 Test Item Value Reference Range Interpretation Comments [place]/Lambda Free Light Chains Ratio 2.18 0.26-1.65 (test code = [place]at[place]/Lambda Free Light Chains Ratio) [facility] CenterCnjqkaiFHMCZIYGFO2817-95-84 14:55:00 Test Item Value Reference Range Interpretation Comments Lambda Free Light Chains (test code = 89.85 5.70-26.30 Lambda Free Light Chains) [facility] CenterYcrszwlRBQHCPLADH8805-09-16 14:55:00 Test Item Value Reference Range Interpretation Comments [place] Free Light Chains (test code = 196.11 3.30-19.40 [place] Free Light Chains) [facility] CenterAnawdjrVBOKROEEZZ8788-98-64 14:55:00 Test Item Value Reference Range Interpretation Comments HSV 1 IgG (test code = HSV 1 IgG) no gt [facility] CenterQbsdljgXKOBRJLJRS0330-47-66 14:55:00 Test Item Value Reference Range Interpretation Comments HSV 2 IgG (test code = HSV 2 IgG) no gt [facility] CenterEsirkltCATPFYEHFR8910-22-50 14:55:00 Test Item Value Reference Range Interpretation Comments CMV IgM (test code = CMV IgM) 0.2 [facility] CenterLzseujlQIGKAJJPYI0139-42-08 14:55:00 Test Item Value Reference Range Interpretation Comments CMV IgG (test code = Reactive *ABN*(05/23/18 CMV IgG) 9:55 AM) [facility] CenterWgadiayBRKJWNEHGK0260-64-51 14:55:00 Test Item Value Reference Range Interpretation Comments EBV VCA IgG (test code = EBV VCA IgG) no gt [facility] CenterKgyizxjLAKFFDXEXE3729-57-48 14:55:00 Test Item Value Reference Range Interpretation Comments Hep Bs Ab (test code = Hep Bs Ab) 4.5 [facility] CenterFyvkgwyDYRFUNHEOV2194-35-32 14:55:00 Test Item Value Reference Range Interpretation Comments Hep C Ab (test code = Negative *NA*(05/23/18 Hep C Ab) 9:55 AM) [facility] CenterCoujuakATWKWJHQYZ9818-24-40 14:55:00 Test Item Value Reference Range Interpretation Comments EBV VCA IgM (test code = EBV VCA IgM) no gt [facility] CenterEdvglzwTDUNRBBATU5073-49-15 14:55:00 Test Item Value Reference Range Interpretation Comments Hep Bs Ag (test code Negative *NA*(05/23/18 = Hep Bs Ag) 9:55 AM) [facility] CenterMennvlgAIPNEUEQZP2508-06-11 14:55:00 Test Item Value Reference Range Interpretation Comments Hep B Core Ab (test Negative *NA*(05/23/18 code = Hep B Core Ab) 9:55 AM) [facility] CenterEpkyhiqJHOZVRQVSR8852-80-78 14:55:00 Test Item Value Reference Range Interpretation Comments HIV Ag/Ab 4th Gen Negative *NA*(05/23/18 (test code = HIV 9:55 AM) Ag/Ab 4th Gen) [facility]QibglmrWJVCANONGG8386-30-53 14:55:00 Test Item Value Reference Range Interpretation Comments MIKE Ser Interp The serum immunofixation (test code = MIKE electrophoresis Ser Interp) demonstrates polyclonal distribution of immunoglobulins. No monoclonal immunoglobulins are detected. The electronic medical record has been reviewed for relevant history. I have personally reviewed the test results and concur with the resident's interpretation. CPT 25665-VW [facility] HospitalTccurhhPUXTSYBHNG0458-06-99 14:55:00 Test Item Value Reference Range Interpretation Comments MIKE Ser Pattern Diffusely staining (test code = MIKE immunoreactivity is present Ser Pattern) in the IgG, IgA, IgM, kappa, and lambda lanes in a normal polyclonal distribution. No monoclonal immunoglobulins are detected. [facility] HospitalBveesfeDBUIJE0547-56-95 14:55:00 Test Item Value Reference Range Interpretation Comments VLDL (test code = VLDL) 30 1 [facility] HospitalDyfjfciSKBCOD5054-19-24 14:55:00 Test Item Value Reference Range Interpretation Comments LDL (Calculated) (test code = LDL 74 (Calculated)) [facility] HospitalFwpdmdkVGNEUW8287-22-49 14:55:00 Test Item Value Reference Range Interpretation Comments Chol (test code = Chol) 176 [facility] HospitalZbeqslrENVLSA0755-35-88 14:55:00 Test Item Value Reference Range Interpretation Comments HDL (test code = HDL) 72 [facility] HospitalNooktcvDPWHBC4856-43-90 14:55:00 Test Item Value Reference Range Interpretation Comments Trig (test code = Trig) 152 [facility] HospitalUmmmemrOTTBPV2527-66-92 14:55:00 Test Item Value Reference Range Interpretation Comments CHD Risk (test code = CHD Risk) 2.44 1 4.00-7.30 [facility] HospitalannPARASITOLOGY - LBVMBFWK2622-46-95 14:55:00 Test Item Value Reference Range Interpretation Comments Strongyloides Antibodies (test code Negative = Strongyloides Antibodies) [facility] HospitalPARATHYROID LFGZPHJ6055-12-04 14:55:00 Test Item Value Reference Range Interpretation Comments PTH Intact (test code = PTH Intact) 286.0 18.4-80.1 [facility] HospitalSPECIAL VFXQHIOIT5806-70-27 14:55:00 Test Item Value Reference Range Interpretation Comments PSA (test code = PSA) 0.46 See_Comment [Auto mated message] The system which ge nerated this result transmit emerson reference range : <=4.00. The reference r yared was not used to interpr et this result as erinn l/abnormal. [facility]2018-08-15 14:55:00 Test Item Value Reference Range Interpretation Comments Hgb A1C (test code = Hgb A1C) 4.9 [facility]2018-08-15 14:55:00 Test Item Value Reference Range Interpretation Comments Nicotine Lvl (test code = None Detected Nicotine Lvl) [facility]2018-08-15 14:55:00 Test Item Value Reference Range Interpretation Comments Cotinine Lvl (test code = None Detected Cotinine Lvl) [facility]2018-08-15 14:55:00 Test Item Value Reference Range Interpretation Comments % Satur Fe (test code = % Satur Fe) 35 12-57 [facility]2018-08-15 14:55:00 Test Item Value Reference Range Interpretation Comments UIBC (test code = UIBC) 179 110-370 [facility]2018-08-15 14:55:00 Test Item Value Reference Range Interpretation Comments TIBC (test code = TIBC) 276 228-428 [facility]2018-08-15 14:55:00 Test Item Value Reference Range Interpretation Comments Iron (test code = Iron) 97 45-160 [facility]2018-08-15 14:55:00 Test Item Value Reference Range Interpretation Comments Ferritin Lvl (test code = Ferritin Lvl) 292 22-275 [facility] EABJCTD9383-33-58 14:55:00 Test Item Value Reference Range Interpretation Comments OP ABORh Int (test code = OP ABORh Int) O POS [facility] HospitalMySmartPrice [id number] 14:55:00 Test Item Value Reference Range Interpretation Comments Phosphorus (test code = Phosphorus) 8.0 2.5-4.5 [facility]2018-08-15 14:55:00 Test Item Value Reference Range Interpretation Comments Magnesium Lvl (test code = Magnesium 2.5 1.8-2.4 Lvl) [facility]2018-08-15 14:55:00 Test Item Value Reference Range Interpretation Comments Vitamin D, 25-OH, Total (test code = 26.3 30.0-100.0 Vitamin D, 25-OH, Total) [facility]2018-08-15 14:55:00 Test Item Value Reference Range Interpretation Comments Uric Acid (test code = Uric Acid) 3.5 3.8-8.0 [facility]2018-08-15 14:55:00 Test Item Value Reference Range Interpretation Comments eGFR (test code = eGFR) 7 [facility]2018-08-15 14:55:00 Test Item Value Reference Range Interpretation Comments Alk Phos (test code = Alk Phos) 80 39-136 [facility]2018-08-15 14:55:00 Test Item Value Reference Range Interpretation Comments Bili Total (test code = Bili Total) 0.4 0.2-1.3 [place] [id number] 14:55:00 Test Item Value Reference Range Interpretation Comments Albumin Lvl (test code = Albumin Lvl) 4.3 3.5-5.0 [facility]2018-08-15 14:55:00 Test Item Value Reference Range Interpretation Comments ALT (test code = ALT) 22 See_Comment [Auto mated message] The system which ge nerated this result transmit emerson reference range : <=65. The reference range was not used to interpr et this result as erinn l/abnormal. [facility]2018-08-15 14:55:00 Test Item Value Reference Range Interpretation Comments Calcium Lvl (test code = Calcium Lvl) 8.8 8.5-10.5 [facility]2018-08-15 14:55:00 Test Item Value Reference Range Interpretation Comments Total Protein (test code = Total 8.1 6.4-8.4 Protein) [facility]2018-08-15 14:55:00 Test Item Value Reference Range Interpretation Comments AST (test code = AST) 12 See_Comment [Auto mated message] The system which ge nerated this result transmit emerson reference range : <=37. The reference range was not used to interpr et this result as erinn l/abnormal. [place] [id number] 14:55:00 Test Item Value Reference Range Interpretation Comments CO2 (test code = CO2) 26 24-32 [facility] [id number] 14:55:00 Test Item Value Reference Range Interpretation Comments Chloride Lvl (test code = Chloride Lvl) 97 95-109 [facility] HospitalMySmartPrice [id number] 14:55:00 Test Item Value Reference Range Interpretation Comments Potassium Lvl (test code = Potassium 3.8 3.5-5.1 Lvl) [facility]My[facility] [id number] 14:55:00 Test Item Value Reference Range Interpretation Comments Creatinine Lvl (test code = Creatinine 8.22 0.50-1.40 Lvl) [facility] [id number] 14:55:00 Test Item Value Reference Range Interpretation Comments Sodium Lvl (test code = Sodium Lvl) 136 135-145 [facility] [id number] 14:55:00 Test Item Value Reference Range Interpretation Comments BUN (test code = BUN) 59 7-22 [facility] [id number] 14:55:00 Test Item Value Reference Range Interpretation Comments Glucose Lvl (test code = Glucose Lvl) 98 70-99 [facility] [id number] 14:55:00 Test Item Value Reference Range Interpretation Comments Globulin (test code = Globulin) 3.8 2.7-4.[address] [facility] [employer] [id number] 14:55:00 Test Item Value Reference Range Interpretation Comments A/G Ratio (test code = A/G Ratio) 1.1 1 0.7-1.6 [facility]My[facility] [id number] 14:55:00 Test Item Value Reference Range Interpretation Comments AGAP (test code = AGAP) 16.8 10.0-20.0 [facility]My[facility] [id number] 14:55:00 Test Item Value Reference Range Interpretation Comments B/C Ratio (test code = B/C Ratio) 7 1 6-25 [facility] HospitalXChanger Companies [id number] 14:55:00 Test Item Value Reference Range Interpretation Comments Phencyclidine Scr (test Negative (05/23/18 code = Phencyclidine Scr) 9:55 AM) [facility]Law[facility]DR[facility] [id number] 14:55:00 Test Item Value Reference Range Interpretation Comments 6-Acetylmor Scr (test Negative (05/23/18 9:55 code = 6-Acetylmor AM) Scr) [facility] [id number] 14:55:00 Test Item Value Reference Range Interpretation Comments Opiate Scr (test code Positive *ABN*(05/23/18 = Opiate Scr) 9:55 AM) [facility] [id number] 14:55:00 Test Item Value Reference Range Interpretation Comments Methadone Scr (test Negative (05/23/18 9:55 code = Methadone Scr) AM) [facility] [id number] 14:55:00 Test Item Value Reference Range Interpretation Comments Rosa M Scr (test code = Negative (05/23/18 9:55 Rosa M Scr) AM) [facility] [id number] 14:55:00 Test Item Value Reference Range Interpretation Comments Cutoff Values (test See Note (05/23/18 9:55 code = Cutoff Values) AM) [facility] [id number] 14:55:00 Test Item Value Reference Range Interpretation Comments Cocaine Scr (test code Negative (05/23/18 9:55 = Cocaine Scr) AM) [facility] [id number] 14:55:00 Test Item Value Reference Range Interpretation Comments Amph Scr (test code = Negative (05/23/18 9:55 Amph Scr) AM) [facility] [id number] 14:55:00 Test Item Value Reference Range Interpretation Comments Cannab Scr (test code Negative (05/23/18 9:55 = Cannab Scr) AM) [facility] [id number] 14:55:00 Test Item Value Reference Range Interpretation Comments Benzodiaz Scr (test Positive *ABN*(05/23/18 code = Benzodiaz Scr) 9:55 AM) [facility] [id number] 14:55:00 Test Item Value Reference Range Interpretation Comments Opiate Qnt (test code = See Note 2(05/23/18 Opiate Qnt) 9:55 AM) [facility] [id number] 14:55:00 Test Item Value Reference Range Interpretation Comments Benzodiaz Qnt (test code See Note 1(05/23/18 = Benzodiaz Qnt) 9:55 AM) [facility] XqgjdccBWTWWWXCFR6218-02-67 14:55:00 Test Item Value Reference Range Interpretation Comments Eosinophils # (test code 0.3 See_Comment [A utomated message] The = Eosinophils #) system whic h generated this result tra nsmitted reference range : <=0.5. The reference r yared was not used to int erpret this result as normal/abnormal . [facility] CentralHybkhqiWWQPUYIZSE1749-20-02 14:55:00 Test Item Value Reference Range Interpretation Comments Basophils # (test code 0.1 See_Comment [Aut omated message] The = Basophils #) system which generated this result tra nsmitted reference range : <=0.2. The reference r yared was not used to int erpret this result as normal/abnormal . [facility] CentralQmnlsqyEDDLEPCOTW3445-57-92 14:55:00 Test Item Value Reference Range Interpretation Comments Neutrophils # (test code = Neutrophils 3.9 1.5-8.1 #) [facility] CentralClmdoeuPYEYZQKTNP3779-39-90 14:55:00 Test Item Value Reference Range Interpretation Comments Lymphocytes # (test code = Lymphocytes 1.3 1.0-5.5 #) [facility] CentralVmgytsxOOIREZIOIP9519-15-80 14:55:00 Test Item Value Reference Range Interpretation Comments Monocytes # (test code 0.5 See_Comment [Aut omated message] The = Monocytes #) system which generated this result tra nsmitted reference range : <=0.8. The reference r yared was not used to int erpret this result as normal/abnormal . [facility] CentralFkszwypHFDRMCKTIQ9631-69-78 14:55:00 Test Item Value Reference Range Interpretation Comments Basophils (test code = 0.9 See_Comment [Aut omated message] The Basophils) system which ge nerated this result tra nsmitted reference range : <=1.0. The reference r yared was not used to int erpret this result as normal/abnormal . [facility] CentralGamvkdoUWZGOKHCXK7348-78-90 14:55:00 Test Item Value Reference Range Interpretation Comments Monocytes (test code = Monocytes) 7.7 2.0-12.0 [facility] CentralJwxayxvKMYZKVVGQZ7130-65-07 14:55:00 Test Item Value Reference Range Interpretation Comments Eosinophils (test code = 4.3 See_Comment [A utomated message] The Eosinophils) system which ge nerated this result tra nsmitted reference range : <=4.0. The reference r yared was not used to int erpret this result as normal/abnormal . [facility] CentralMipazzyXNAIZYDYDY5494-15-90 14:55:00 Test Item Value Reference Range Interpretation Comments Lymphocytes (test code = Lymphocytes) 22.0 20.0-40.0 [facility] CentralYvsszhyNWQNYVLIWZ1621-97-66 14:55:00 Test Item Value Reference Range Interpretation Comments Segs (test code = Segs) 65.1 45.0-75.0 [facility] CentralQejrrjoIKVXXGWFLQ1366-53-97 14:55:00 Test Item Value Reference Range Interpretation Comments INR (test code = INR) 1.06 1 0.85-1.17 [facility] CentralMvnsjjlWIHGYEGBXA8207-29-21 14:55:00 Test Item Value Reference Range Interpretation Comments PT (test code = PT) 13.8 s 12.0-14.7 [facility] CentralSgqcejxLXGIEPFSOK8002-40-80 14:55:00 Test Item Value Reference Range Interpretation Comments PTT (test code = PTT) 35.0 s 22.9-35.8 [facility] CentralLvcgofbPLIHZHJUNU4149-43-55 14:55:00 Test Item Value Reference Range Interpretation Comments RDW (test code = RDW) 18.1 11.5-14.5 [facility] CentralBvccqxdZDBFGFRLKN3620-72-41 14:55:00 Test Item Value Reference Range Interpretation Comments MPV (test code = MPV) 8.0 7.4-10.4 [facility] CentralGhetalnKCYTILRNTG4437-39-46 14:55:00 Test Item Value Reference Range Interpretation Comments Platelet (test code = Platelet) 228 133-450 [facility] CentralLhrqzbcNARDXVLDWH3138-23-12 14:55:00 Test Item Value Reference Range Interpretation Comments MCHC (test code = MCHC) 33.3 32.0-36.0 [facility] CentralFqowbprUOLHBMGJPN8553-86-78 14:55:00 Test Item Value Reference Range Interpretation Comments RBC (test code = RBC) 4.54 4.70-6.10 [facility] CentralNfvisflIXRNMKOGMX5958-26-70 14:55:00 Test Item Value Reference Range Interpretation Comments WBC (test code = WBC) 6.1 3.7-10.4 [facility] CentralTquglnjLZQDBOSLFK5434-95-41 14:55:00 Test Item Value Reference Range Interpretation Comments MCV (test code = MCV) 80.9 80.0-94.0 [facility] CentralGongexjQGHRAFTVCU2774-41-19 14:55:00 Test Item Value Reference Range Interpretation Comments Hct (test code = Hct) 36.7 42.0-54.0 [facility] CentralHoahrotQZTPJPNYRM0749-30-79 14:55:00 Test Item Value Reference Range Interpretation Comments MCH (test code = MCH) 27.0 pg 27.0-31.0 [facility] CentralLzhjleoYWJWUDORNC6018-47-17 14:55:00 Test Item Value Reference Range Interpretation Comments Hgb (test code = Hgb) 12.2 14.0-18.0 [facility] HospitalHqdpahgONNABZEXEO7621-93-76 14:55:00 Test Item Value Reference Range Interpretation Comments Varicella IgG (test code = Varicella no gt IgG) [facility] HospitalBkjmkozGZXHFIPRLG5548-07-58 14:55:00 Test Item Value Reference Range Interpretation Comments Varicella IgM (test no gt See_Comment [Automa emerson message] The code = Varicella IgM) system which generated this result tra nsmitted reference range : <=0.90. The reference r yared was not used to int erpret this result as normal/abnormal . [facility] HospitalOlhfzjjWOMKLIFRGH5765-82-05 14:55:00 Test Item Value Reference Range Interpretation Comments Treponemal Ab (test code Non-Reactive = Treponemal Ab) *NA*(05/23/18 9:55 AM) [facility] CenterUukiohhWRGQNPUYDL3639-93-85 14:55:00 Test Item Value Reference Range Interpretation Comments T-Spot.TB (test code Negative (05/23/18 9:55 = T-Spot.TB) AM) [facility] CenterHnaaetiHPILCUDJMA0901-49-91 14:55:00 Test Item Value Reference Range Interpretation Comments Gamma % (test code = Gamma %) 18.2 11.1-18.7 [facility] HospitalFenjmziRHOGJGMYGX5114-45-26 14:55:00 Test Item Value Reference Range Interpretation Comments Alpha 2 % (test code = Alpha 2 %) 7.8 7.0-11.9 [facility] HospitalBbveneiCYMRZEWZLB2590-06-94 14:55:00 Test Item Value Reference Range Interpretation Comments Beta % (test code = Beta %) 9.5 7.8-13.7 [facility] HospitalHrdhefvLPFMRZFFCI3596-43-03 14:55:00 Test Item Value Reference Range Interpretation Comments Albumin % (test code = Albumin %) 60.9 55.8-66.1 [facility] CenterLbtcpzrCYUEPAREUM3791-31-15 14:55:00 Test Item Value Reference Range Interpretation Comments Alpha 1 % (test code = Alpha 1 %) 3.6 2.8-4.9 [facility] CenterVcezryhIVCCLKRUVY7826-79-72 14:55:00 Test Item Value Reference Range Interpretation Comments Gamma Glob (test code = Gamma Glob) 1.47 0.71-1.57 [facility] CenterOvstdueGHMZCCICKL8500-40-19 14:55:00 Test Item Value Reference Range Interpretation Comments Tot Prot (SPE) (test code = Tot Prot 8.1 6.4-8.4 (SPE)) [facility] CenterYuoklvnICTVZZMCYE2893-81-81 14:55:00 Test Item Value Reference Range Interpretation Comments Beta Glob (test code = Beta Glob) 0.77 0.50-1.15 [facility] CenterGiesjisIEUYPCTEYT9539-13-59 14:55:00 Test Item Value Reference Range Interpretation [...] and concur with the resident's interpretation. CPT 59809-SB [facility] CenterHenzdvkXKCAMFQPOQ1508-68-31 14:55:00 Test Item Value Reference Range Interpretation Comments Albumin (SPE) (test code = Albumin 4.93 3.57-5.55 (SPE)) [facility] CenterZrigvsjHNVNWJEDFE6583-83-61 14:55:00 Test Item Value Reference Range Interpretation Comments Alpha 1 Glob (test code = Alpha 1 Glob) 0.29 0.18-0.41 [facility] CenterKwpgtdnMBFGPVNQCK2065-81-82 14:55:00 Test Item Value Reference Range Interpretation Comments Alpha 2 Glob (test code = Alpha 2 Glob) 0.63 0.45-1.00 [facility] CenterNgyhhweTNWIMVJGTW8405-71-19 14:55:00 Test Item Value Reference Range Interpretation Comments [place]/Lambda Free Light Chains Ratio 2.18 0.26-1.65 (test code = [place]/Lambda Free Light Chains Ratio) [facility] CenterIguspktDBPUBLYXZT0298-52-88 14:55:00 Test Item Value Reference Range Interpretation Comments Lambda Free Light Chains (test code = 89.85 5.70-26.30 Lambda Free Light Chains) [facility] CenterCdetsooKXRLUXHPIA3011-36-38 14:55:00 Test Item Value Reference Range Interpretation Comments [place] Free Light Chains (test code = 196.11 3.30-19.40 [place] Free Light Chains) [facility] CenterGrxurlhLMYPZCTLEY9635-04-08 14:55:00 Test Item Value Reference Range Interpretation Comments HSV 1 IgG (test code = HSV 1 IgG) no gt [facility] HospitalLlqrxpsDWTUNDPKQL7239-10-26 14:55:00 Test Item Value Reference Range Interpretation Comments HSV 2 IgG (test code = HSV 2 IgG) no gt [facility] HospitalGonewkwCZBXROUEBL0960-24-10 14:55:00 Test Item Value Reference Range Interpretation Comments CMV IgM (test code = CMV IgM) 0.2 [facility] CenterJouqvjgYWDFJSWBGD9124-01-95 14:55:00 Test Item Value Reference Range Interpretation Comments CMV IgG (test code = Reactive *ABN*(05/23/18 CMV IgG) 9:55 AM) [facility] CenterQuzdtfoFXTDYHTVPV3082-92-54 14:55:00 Test Item Value Reference Range Interpretation Comments EBV VCA IgG (test code = EBV VCA IgG) no gt [facility] HospitalAzctdkmSWXOZSNCNT5837-84-19 14:55:00 Test Item Value Reference Range Interpretation Comments Hep Bs Ab (test code = Hep Bs Ab) 4.5 [facility] CenterKetoamtJXUFSUDYCO4893-31-05 14:55:00 Test Item Value Reference Range Interpretation Comments Hep C Ab (test code = Negative *NA*(05/23/18 Hep C Ab) 9:55 AM) [facility] CenterZgucyjjPBJVYAHRPT4963-43-58 14:55:00 Test Item Value Reference Range Interpretation Comments EBV VCA IgM (test code = EBV VCA IgM) no gt [facility] HospitalXjltcmlXTDIQADXXJ9239-60-37 14:55:00 Test Item Value Reference Range Interpretation Comments Hep Bs Ag (test code Negative *NA*(05/23/18 = Hep Bs Ag) 9:55 AM) [facility] CenterFwgljwdXGBIZRZHMN2911-87-22 14:55:00 Test Item Value Reference Range Interpretation Comments Hep B Core Ab (test Negative *NA*(05/23/18 code = Hep B Core Ab) 9:55 AM) [facility] CenterWrpvutdLGZHILQLFS9784-57-79 14:55:00 Test Item Value Reference Range Interpretation Comments HIV Ag/Ab 4th Gen Negative *NA*(05/23/18 (test code = HIV 9:55 AM) Ag/Ab 4th Gen) [facility]ZzgskwiTGLNEYNSGG9427-11-54 14:55:00 Test Item Value Reference Range Interpretation Comments MIKE Ser Interp The serum immunofixation (test code = MIKE electrophoresis Ser Interp) demonstrates polyclonal distribution of immunoglobulins. No monoclonal immunoglobulins are detected. The electronic medical record has been reviewed for relevant history. I have personally reviewed the test results and concur with the resident's interpretation. CPT 88609-LS [facility] HospitalMmuawpnGEWEZQJSOU8565-77-69 14:55:00 Test Item Value Reference Range Interpretation Comments MIKE Ser Pattern Diffusely staining (test code = MIKE immunoreactivity is present Ser Pattern) in the IgG, IgA, IgM, kappa, and lambda lanes in a normal polyclonal distribution. No monoclonal immunoglobulins are detected. [facility] HospitalIcrxfzuDSPQVI9019-95-76 14:55:00 Test Item Value Reference Range Interpretation Comments VLDL (test code = VLDL) 30 1 [facility] HospitalRuctnnpJKQGQN9406-77-45 14:55:00 Test Item Value Reference Range Interpretation Comments LDL (Calculated) (test code = LDL 74 (Calculated)) [facility] HospitalAnjakosDEDTSC8190-61-96 14:55:00 Test Item Value Reference Range Interpretation Comments Chol (test code = Chol) 176 [facility] HospitalRuhsapyTACXRJ1803-72-10 14:55:00 Test Item Value Reference Range Interpretation Comments HDL (test code = HDL) 72 [facility] HospitalPndpqtdZLAUDK4693-05-39 14:55:00 Test Item Value Reference Range Interpretation Comments Trig (test code = Trig) 152 [facility] HospitalEfzbbowENYQKS1578-19-46 14:55:00 Test Item Value Reference Range Interpretation Comments CHD Risk (test code = CHD Risk) 2.44 1 4.00-7.30 [facility] HospitalannPARASITOLOGY - CZXYQUGW5873-89-55 14:55:00 Test Item Value Reference Range Interpretation Comments Strongyloides Antibodies (test code Negative = Strongyloides Antibodies) [facility] HospitalannPARATHYROID QCIIBTG6802-75-65 14:55:00 Test Item Value Reference Range Interpretation Comments PTH Intact (test code = PTH Intact) 286.0 18.4-80.1 [facility]2018-08-15 14:55:00 Test Item Value Reference Range Interpretation Comments PSA (test code = PSA) 0.46 See_Comment [Auto mated message] The system which ge nerated this result transmit emerson reference range : <=4.00. The reference r yared was not used to interpr et this result as erinn l/abnormal. [facility]2018-08-15 14:55:00 Test Item Value Reference Range Interpretation Comments Hgb A1C (test code = Hgb A1C) 4.9 [facility]2018-08-15 14:55:00 Test Item Value Reference Range Interpretation Comments Nicotine Lvl (test code = None Detected Nicotine Lvl) [facility]2018-08-15 14:55:00 Test Item Value Reference Range Interpretation Comments Cotinine Lvl (test code = None Detected Cotinine Lvl) [facility]2018-08-15 14:55:00 Test Item Value Reference Range Interpretation Comments % Satur Fe (test code = % Satur Fe) 35 12-57 [facility]2018-08-15 14:55:00 Test Item Value Reference Range Interpretation Comments UIBC (test code = UIBC) 179 110-370 [facility]2018-08-15 14:55:00 Test Item Value Reference Range Interpretation Comments TIBC (test code = TIBC) 276 228-428 [facility]2018-08-15 14:55:00 Test Item Value Reference Range Interpretation Comments Iron (test code = Iron) 97 45-160 [facility]2018-08-15 14:55:00 Test Item Value Reference Range Interpretation Comments Ferritin Lvl (test code = Ferritin Lvl) 292 22-275 [facility] YQBGLPW9332-16-58 14:55:00 Test Item Value Reference Range Interpretation Comments OP ABORh Int (test code = OP ABORh Int) O POS [facility] HospitalMySmartPrice [id number] 14:55:00 Test Item Value Reference Range Interpretation Comments Phosphorus (test code = Phosphorus) 8.0 2.5-4.5 [facility]My[facility] [id number] 14:55:00 Test Item Value Reference Range Interpretation Comments Magnesium Lvl (test code = Magnesium 2.5 1.8-2.4 Lvl) [place] 597388-08-15 14:55:00 Test Item Value Reference Range Interpretation Comments Vitamin D, 25-OH, Total (test code = 26.3 30.0-100.0 Vitamin D, 25-OH, Total) [place] 597388-08-15 14:55:00 Test Item Value Reference Range Interpretation Comments Uric Acid (test code = Uric Acid) 3.5 3.8-8.0 [place] 597388-08-15 14:55:00 Test Item Value Reference Range Interpretation Comments eGFR (test code = eGFR) 7 [place] 597388-08-15 14:55:00 Test Item Value Reference Range Interpretation Comments Alk Phos (test code = Alk Phos) 80 39-136 [facility]2018-08-15 14:55:00 Test Item Value Reference Range Interpretation Comments Bili Total (test code = Bili Total) 0.4 0.2-1.3 [facility]2018-08-15 14:55:00 Test Item Value Reference Range Interpretation Comments Albumin Lvl (test code = Albumin Lvl) 4.3 3.5-5.0 [place] 597388-08-15 14:55:00 Test Item Value Reference Range Interpretation Comments ALT (test code = ALT) 22 See_Comment [Auto mated message] The system which ge nerated this result transmit emerson reference range : <=65. The reference range was not used to interpr et this result as erinn l/abnormal. [place] 597388-08-15 14:55:00 Test Item Value Reference Range Interpretation Comments Calcium Lvl (test code = Calcium Lvl) 8.8 8.5-10.5 [place] 597388-08-15 14:55:00 Test Item Value Reference Range Interpretation Comments Total Protein (test code = Total 8.1 6.4-8.4 Protein) [place] 597388-08-15 14:55:00 Test Item Value Reference Range Interpretation Comments AST (test code = AST) 12 See_Comment [Auto mated message] The system which ge nerated this result transmit emerson reference range : <=37. The reference range was not used to interpr et this result as erinn l/abnormal. [place] 597388-08-15 14:55:00 Test Item Value Reference Range Interpretation Comments CO2 (test code = CO2) 26 24-32 [facility]2018-08-15 14:55:00 Test Item Value Reference Range Interpretation Comments Chloride Lvl (test code = Chloride Lvl) 97 95-109 [facility]2018-08-15 14:55:00 Test Item Value Reference Range Interpretation Comments Potassium Lvl (test code = Potassium 3.8 3.5-5.1 Lvl) [facility]2018-08-15 14:55:00 Test Item Value Reference Range Interpretation Comments Creatinine Lvl (test code = Creatinine 8.22 0.50-1.40 Lvl) [facility]2018-08-15 14:55:00 Test Item Value Reference Range Interpretation Comments Sodium Lvl (test code = Sodium Lvl) 136 135-145 [facility]2018-08-15 14:55:00 Test Item Value Reference Range Interpretation Comments BUN (test code = BUN) 59 7-22 [facility]2018-08-15 14:55:00 Test Item Value Reference Range Interpretation Comments Glucose Lvl (test code = Glucose Lvl) 98 70-99 [facility]2018-08-15 14:55:00 Test Item Value Reference Range Interpretation Comments Globulin (test code = Globulin) 3.8 2.7-4.2 [facility]2018-08-15 14:55:00 Test Item Value Reference Range Interpretation Comments A/G Ratio (test code = A/G Ratio) 1.1 1 0.7-1.6 [facility]2018-08-15 14:55:00 Test Item Value Reference Range Interpretation Comments AGAP (test code = AGAP) 16.8 10.0-20.0 [facility]21[employer] [id number] 14:55:00 Test Item Value Reference Range Interpretation Comments B/C Ratio (test code = B/C Ratio) 7 1 6-25 [facility] HospitalProductGram FZKBOW4513-87-19 14:55:00 Test Item Value Reference Range Interpretation Comments Phencyclidine Scr (test Negative (05/23/18 code = Phencyclidine Scr) 9:55 AM) [facility] HospitalProductGram OPHYBX0614-75-10 14:55:00 Test Item Value Reference Range Interpretation Comments 6-Acetylmor Scr (test Negative (05/23/18 9:55 code = 6-Acetylmor AM) Scr) [facility] [id number] 14:55:00 Test Item Value Reference Range Interpretation Comments Opiate Scr (test code Positive *ABN*(05/23/18 = Opiate Scr) 9:55 AM) [facility] [id number] 14:55:00 Test Item Value Reference Range Interpretation Comments Methadone Scr (test Negative (05/23/18 9:55 code = Methadone Scr) AM) [facility] [id number] 14:55:00 Test Item Value Reference Range Interpretation Comments Rosa M Scr (test code = Negative (05/23/18 9:55 Rosa M Scr) AM) [facility] [id number] 14:55:00 Test Item Value Reference Range Interpretation Comments Cutoff Values (test See Note (05/23/18 9:55 code = Cutoff Values) AM) [facility] [id number] 14:55:00 Test Item Value Reference Range Interpretation Comments Cocaine Scr (test code Negative (05/23/18 9:55 = Cocaine Scr) AM) [facility] NQDYQH0915-15-05 14:55:00 Test Item Value Reference Range Interpretation Comments Amph Scr (test code = Negative (05/23/18 9:55 Amph Scr) AM) [facility] [id number] 14:55:00 Test Item Value Reference Range Interpretation Comments Cannab Scr (test code Negative (05/23/18 9:55 = Cannab Scr) AM) [facility] [id number] 14:55:00 Test Item Value Reference Range Interpretation Comments Benzodiaz Scr (test Positive *ABN*(05/23/18 code = Benzodiaz Scr) 9:55 AM) [facility] [id number] 14:55:00 Test Item Value Reference Range Interpretation Comments Opiate Qnt (test code = See Note 2(05/23/18 Opiate Qnt) 9:55 AM) [facility] [id number] 14:55:00 Test Item Value Reference Range Interpretation Comments Benzodiaz Qnt (test code See Note 1(05/23/18 = Benzodiaz Qnt) 9:55 AM) [facility] CentralKybeiwlRQQOPQNLOJ5727-75-72 14:55:00 Test Item Value Reference Range Interpretation Comments Eosinophils # (test code 0.3 See_Comment [A utomated message] The = Eosinophils #) system whic h generated this result tra nsmitted reference range : <=0.5. The reference r yared was not used to int erpret this result as normal/abnormal . [facility] CentralNsmkgvgDQMOJJEEOB7158-09-37 14:55:00 Test Item Value Reference Range Interpretation Comments Basophils # (test code 0.1 See_Comment [Aut omated message] The = Basophils #) system which generated this result tra nsmitted reference range : <=0.2. The reference r yared was not used to int erpret this result as normal/abnormal . [facility] CentralBmxhrupFMMLMFXHMM7886-77-40 14:55:00 Test Item Value Reference Range Interpretation Comments Neutrophils # (test code = Neutrophils 3.9 1.5-8.1 #) [facility] CentralEumowewZRPSRXLNHQ3975-93-02 14:55:00 Test Item Value Reference Range Interpretation Comments Lymphocytes # (test code = Lymphocytes 1.3 1.0-5.5 #) [facility] CentralTczpwvwJRHMVZTQVL5101-04-51 14:55:00 Test Item Value Reference Range Interpretation Comments Monocytes # (test code 0.5 See_Comment [Aut omated message] The = Monocytes #) system which generated this result tra nsmitted reference range : <=0.8. The reference r yared was not used to int erpret this result as normal/abnormal . [facility] CentralOmbowtkPUOXFXNJDN8134-50-58 14:55:00 Test Item Value Reference Range Interpretation Comments Basophils (test code = 0.9 See_Comment [Aut omated message] The Basophils) system which ge nerated this result tra nsmitted reference range : <=1.0. The reference r yared was not used to int erpret this result as normal/abnormal . [facility] CentralNgzeyrnWRJGQTGVJM3060-08-00 14:55:00 Test Item Value Reference Range Interpretation Comments Monocytes (test code = Monocytes) 7.7 2.0-12.0 [facility] CentralEbqtnhzAJXWGVWTFK2317-09-75 14:55:00 Test Item Value Reference Range Interpretation Comments Eosinophils (test code = 4.3 See_Comment [A utomated message] The Eosinophils) system which ge nerated this result tra nsmitted reference range : <=4.0. The reference r yared was not used to int erpret this result as normal/abnormal . [facility] CentralDmksktyIIFKECQDPP2275-62-13 14:55:00 Test Item Value Reference Range Interpretation Comments Lymphocytes (test code = Lymphocytes) 22.0 20.0-40.0 [facility] CentralRrwlrtrOLPLZOAHGM0566-12-63 14:55:00 Test Item Value Reference Range Interpretation Comments Segs (test code = Segs) 65.1 45.0-75.0 [facility] CentralOnimdcgEQUNWDEFAT6812-98-78 14:55:00 Test Item Value Reference Range Interpretation Comments INR (test code = INR) 1.06 1 0.85-1.17 [facility] CentralFbwsfyuOCJYRKFTYI0156-04-43 14:55:00 Test Item Value Reference Range Interpretation Comments PT (test code = PT) 13.8 s 12.0-14.7 [facility] CentralSgrbwhbASQFODCPOD9962-99-11 14:55:00 Test Item Value Reference Range Interpretation Comments PTT (test code = PTT) 35.0 s 22.9-35.8 [facility] CentralLpbeudkTVSCFTBOQS7346-00-96 14:55:00 Test Item Value Reference Range Interpretation Comments RDW (test code = RDW) 18.1 11.5-14.5 [facility] CentralTymfquwIDMXHLWUFV6106-24-32 14:55:00 Test Item Value Reference Range Interpretation Comments MPV (test code = MPV) 8.0 7.4-10.4 [facility] CentralNscbyixEWNOEFAQBQ8983-44-02 14:55:00 Test Item Value Reference Range Interpretation Comments Platelet (test code = Platelet) 228 133-450 [facility] CentralSvhmylwMIOAYVIMIB6696-43-16 14:55:00 Test Item Value Reference Range Interpretation Comments MCHC (test code = MCHC) 33.3 32.0-36.0 [facility] CentralOpzhlwaKGDTSJQFCN4316-82-25 14:55:00 Test Item Value Reference Range Interpretation Comments RBC (test code = RBC) 4.54 4.70-6.10 [facility] CentralQbukgsdEZZRWHFLCR8077-85-22 14:55:00 Test Item Value Reference Range Interpretation Comments WBC (test code = WBC) 6.1 3.7-10.4 [facility] CentralIwomussJZBGJWGSBU7180-11-02 14:55:00 Test Item Value Reference Range Interpretation Comments MCV (test code = MCV) 80.9 80.0-94.0 [facility] CentralIqcqybxODAZREFNLQ6513-30-01 14:55:00 Test Item Value Reference Range Interpretation Comments Hct (test code = Hct) 36.7 42.0-54.0 [facility] CentralMejrkehSYTLYJGAAN0843-77-38 14:55:00 Test Item Value Reference Range Interpretation Comments MCH (test code = MCH) 27.0 pg 27.0-31.0 [facility] CentralCxckzcwCKJWKUVIKB4005-77-09 14:55:00 Test Item Value Reference Range Interpretation Comments Hgb (test code = Hgb) 12.2 14.0-18.0 [facility]VhqzwetTFWBJHVIWY9324-21-41 14:55:00 Test Item Value Reference Range Interpretation Comments Varicella IgG (test code = Varicella no gt IgG) [facility] CenterJvqnxtvPFKAIHXFBQ8753-25-47 14:55:00 Test Item Value Reference Range Interpretation Comments Varicella IgM (test no gt See_Comment [Automa emerson message] The code = Varicella IgM) system which generated this result tra nsmitted reference range : <=0.90. The reference r yared was not used to int erpret this result as normal/abnormal . [facility] CenterCknohnfLEDVVBFNQD2481-26-66 14:55:00 Test Item Value Reference Range Interpretation Comments Treponemal Ab (test code Non-Reactive = Treponemal Ab) *NA*(05/23/18 9:55 AM) [place] [address]-08-15 14:55:00 Test Item Value Reference Range Interpretation Comments T-Spot.TB (test code Negative (05/23/18 9:55 = T-Spot.TB) AM) [facility] CenterYgkbfzeBXJSEBLSDM8663-73-06 14:55:00 Test Item Value Reference Range Interpretation Comments Gamma % (test code = Gamma %) 18.2 11.1-18.7 [facility] CenterKdpzvtgCCZDJUJCWQ4108-87-76 14:55:00 Test Item Value Reference Range Interpretation Comments Alpha 2 % (test code = Alpha 2 %) 7.8 7.0-11.9 [place] [address]-08-15 14:55:00 Test Item Value Reference Range Interpretation Comments Beta % (test code = Beta %) 9.5 7.8-13.7 [place] 243558-08-15 14:55:00 Test Item Value Reference Range Interpretation Comments Albumin % (test code = Albumin %) 60.9 55.8-66.1 [facility]CrrvwbvTXQUTZQMJV6325-78-44 14:55:00 Test Item Value Reference Range Interpretation Comments Alpha 1 % (test code = Alpha 1 %) 3.6 2.8-4.9 [facility] CenterMluxnsuKKVBAKVOFY2658-35-01 14:55:00 Test Item Value Reference Range Interpretation Comments Gamma Glob (test code = Gamma Glob) 1.47 0.71-1.57 [facility] HospitalAgdbhkaFEMLWXNTRX2789-72-47 14:55:00 Test Item Value Reference Range Interpretation Comments Tot Prot (SPE) (test code = Tot Prot 8.1 6.4-8.4 (SPE)) [facility] CenterCmbdrjvKOWMWODQVP5811-31-58 14:55:00 Test Item Value Reference Range Interpretation Comments Beta Glob (test code = Beta Glob) 0.77 0.50-1.15 [facility] CenterXtzgilzVVLLFPVVWS7368-98-20 14:55:00 Test Item Value Reference Range Interpretation [...] and concur with the resident's interpretation. CPT 04343-JV [facility] CenterUmbofitNXCJPQFXXG8487-90-40 14:55:00 Test Item Value Reference Range Interpretation Comments Albumin (SPE) (test code = Albumin 4.93 3.57-5.55 (SPE)) [facility] CenterGcaqnmhWSDIDXXJCW5124-36-25 14:55:00 Test Item Value Reference Range Interpretation Comments Alpha 1 Glob (test code = Alpha 1 Glob) 0.29 0.18-0.41 [facility] CenterAvbbnuiPXCGZOXVUQ7099-53-97 14:55:00 Test Item Value Reference Range Interpretation Comments Alpha 2 Glob (test code = Alpha 2 Glob) 0.63 0.45-1.00 [facility] CenterYfelgxaRALWCXPDUD9588-11-63 14:55:00 Test Item Value Reference Range Interpretation Comments [place]/Lambda Free Light Chains Ratio 2.18 0.26-1.65 (test code = [place]/Lambda Free Light Chains Ratio) [facility] CenterRdpiurkCYTABFDHSC8894-00-47 14:55:00 Test Item Value Reference Range Interpretation Comments Lambda Free Light Chains (test code = 89.85 5.70-26.30 Lambda Free Light Chains) [facility] CenterBnyjuqvJDTKLKFVQY9290-24-58 14:55:00 Test Item Value Reference Range Interpretation Comments [place] Free Light Chains (test code = 196.11 3.30-19.40 [place] Free Light Chains) [facility] CenterVscxrsqLAXXCOZUWC7590-41-83 14:55:00 Test Item Value Reference Range Interpretation Comments HSV 1 IgG (test code = HSV 1 IgG) no [facility]2018-08-15 14:55:00 Test Item Value Reference Range Interpretation Comments HSV 2 IgG (test code = HSV 2 IgG) no [facility]2018-08-15 14:55:00 Test Item Value Reference Range Interpretation Comments CMV IgM (test code = CMV IgM) 0.2 [facility] CenterCqjuwhwHFBDTSUEQL3579-52-74 14:55:00 Test Item Value Reference Range Interpretation Comments CMV IgG (test code = Reactive *ABN*(05/23/18 CMV IgG) 9:55 AM) [facility] CenterPijqejyNGYWQEJDCL8450-19-46 14:55:00 Test Item Value Reference Range Interpretation Comments EBV VCA IgG (test code = EBV VCA IgG) no [facility]2018-08-15 14:55:00 Test Item Value Reference Range Interpretation Comments Hep Bs Ab (test code = Hep Bs Ab) 4.5 [facility] CenterSclkojiTULRUXGDFZ5304-19-34 14:55:00 Test Item Value Reference Range Interpretation Comments Hep C Ab (test code = Negative *NA*(05/23/18 Hep C Ab) 9:55 AM) [facility] CenterWejpqzqJYFNNRNSTX8965-01-16 14:55:00 Test Item Value Reference Range Interpretation Comments EBV VCA IgM (test code = EBV VCA IgM) no [facility]2018-08-15 14:55:00 Test Item Value Reference Range Interpretation Comments Hep Bs Ag (test code Negative *NA*(05/23/18 = Hep Bs Ag) 9:55 AM) [facility] CenterApzjznaIKTYDFORBP2159-22-16 14:55:00 Test Item Value Reference Range Interpretation Comments Hep B Core Ab (test Negative *NA*(05/23/18 code = Hep B Core Ab) 9:55 AM) [facility]GrwbnteCIHMAWBVKU3363-69-30 14:55:00 Test Item Value Reference Range Interpretation Comments HIV Ag/Ab 4th Gen Negative *NA*(05/23/18 (test code = HIV 9:55 AM) Ag/Ab 4th Gen) [facility] HospitalIetjragFFWJSPDMXL4713-84-68 14:55:00 Test Item Value Reference Range Interpretation Comments MIKE Ser Interp The serum immunofixation (test code = MIKE electrophoresis Ser Interp) demonstrates polyclonal distribution of immunoglobulins. No monoclonal immunoglobulins are detected. The electronic medical record has been reviewed for relevant history. I have personally reviewed the test results and concur with the resident's interpretation. CPT 71431-LD [facility] HospitalDpdwogeISLNTKMDSE3555-06-14 14:55:00 Test Item Value Reference Range Interpretation Comments MIKE Ser Pattern Diffusely staining (test code = MIKE immunoreactivity is present Ser Pattern) in the IgG, IgA, IgM, kappa, and lambda lanes in a normal polyclonal distribution. No monoclonal immunoglobulins are detected. [facility] HospitalQvkbtjlCHWVBY9594-57-96 14:55:00 Test Item Value Reference Range Interpretation Comments VLDL (test code = VLDL) 30 1 [facility] HospitalKhendhlGKIOSM9724-79-32 14:55:00 Test Item Value Reference Range Interpretation Comments LDL (Calculated) (test code = LDL 74 (Calculated)) [facility] HospitalRxsrathZKJKCP3402-49-93 14:55:00 Test Item Value Reference Range Interpretation Comments Chol (test code = Chol) 176 [facility] HospitalPltorjjXGOCCK4882-46-91 14:55:00 Test Item Value Reference Range Interpretation Comments HDL (test code = HDL) 72 [facility] HospitalSwradzhPGRIVC1005-71-09 14:55:00 Test Item Value Reference Range Interpretation Comments Trig (test code = Trig) 152 [facility] HospitalZdctbsoEUZTYM7645-03-10 14:55:00 Test Item Value Reference Range Interpretation Comments CHD Risk (test code = CHD Risk) 2.44 1 4.00-7.30 [facility] HospitalannPARASITOLOGY - NIPGXBOY6467-97-76 14:55:00 Test Item Value Reference Range Interpretation Comments Strongyloides Antibodies (test code Negative = Strongyloides Antibodies) [facility] HospitalPARATHYROID JLZXNZG9968-26-44 14:55:00 Test Item Value Reference Range Interpretation Comments PTH Intact (test code = PTH Intact) 286.0 18.4-80.1 [facility]2018-08-15 14:55:00 Test Item Value Reference Range Interpretation Comments PSA (test code = PSA) 0.46 See_Comment [Auto mated message] The system which ge nerated this result transmit emerson reference range : <=4.00. The reference r yared was not used to interpr et this result as erinn l/abnormal. [facility] 14:55:00 Test Item Value Reference Range Interpretation Comments Hgb A1C (test code = Hgb A1C) 4.9 [facility]2018-08-15 14:55:00 Test Item Value Reference Range Interpretation Comments Nicotine Lvl (test code = None Detected Nicotine Lvl) [facility] HospitalThe DelFin ProjectEFOGGSQWC0296-68-47 14:55:00 Test Item Value Reference Range Interpretation Comments Cotinine Lvl (test code = None Detected Cotinine Lvl) [facility]Shop[facility]2018-[facility] 12:03:00 Test Item Value Reference Range Interpretation Comments Troponin-I (test code 0.04 See_Comment [Auto mated message] The = Troponin-I) system which g enerated this result transmit emerson reference range : <=0.40. The reference r yared was not used to interpr et this result as erinn l/abnormal. [facility] [employer]2018-07-08 12:03:00 Test Item Value Reference Range Interpretation Comments Total CK (test code = Total CK) [facility] [employer]2018-07-08 12:03:00 Test Item Value Reference Range Interpretation Comments Troponin-I (test code 0.04 See_Comment [Auto mated message] The = Troponin-I) system which g enerated this result transmit emerson reference range : <=0.40. The reference r yared was not used to interpr et this result as erinn l/abnormal. [facility] [employer]2018-07-08 12:03:00 Test Item Value Reference Range Interpretation Comments Total CK (test code = Total CK) [facility] [employer]2018-07-08 12:03:00 Test Item Value Reference Range Interpretation Comments Troponin-I (test code 0.04 See_Comment [Auto mated message] The = Troponin-I) system which g enerated this result transmit emerson reference range : <=0.40. The reference r yared was not used to interpr et this result as erinn l/abnormal. [facility] [employer]2018-07-08 12:03:00 Test Item Value Reference Range Interpretation Comments Total CK (test code = Total CK) [address] [facility] [employer]2018-07-08 07:54:00 Test Item Value Reference Range Interpretation Comments Troponin-I (test code 0.02 See_Comment [Auto mated message] The = Troponin-I) system which g enerated this result transmit emerson reference range : <=0.40. The reference r yared was not used to interpr et this result as erinn l/abnormal. [facility] [employer]2018-07-08 07:54:00 Test Item Value Reference Range Interpretation Comments Total CK (test code = Total CK) [address] [facility] [employer]2018-07-08 07:54:00 Test Item Value Reference Range Interpretation Comments Magnesium Lvl (test code = Magnesium 1.9 1.8-2.4 Lvl) [facility] [employer]2018-07-08 07:54:00 Test Item Value Reference Range Interpretation Comments B/C Ratio (test code = B/C Ratio) 6 1 6-[address] [facility] [employer]2018-07-08 07:54:00 Test Item Value Reference Range Interpretation Comments Albumin Lvl (test code = Albumin Lvl) 3.3 3.5-5.[address] [facility] [employer]2018-07-08 07:54:00 Test Item Value Reference Range Interpretation Comments A/G Ratio (test code = A/G Ratio) 0.9 1 0.7-1.[address] [facility] [employer]2018-07-08 07:54:00 Test Item Value Reference Range Interpretation Comments Total Protein (test code = Total 7.1 6.4-8.4 Protein) [facility] [employer]2018-07-08 07:54:00 Test Item Value Reference Range Interpretation Comments Globulin (test code = Globulin) 3.8 2.7-4.[address] [facility] [employer]2018-07-08 07:54:00 Test Item Value Reference Range Interpretation Comments ALT (test code = ALT) 18 See_Comment [Auto mated message] The system which ge nerated this result transmit emerson reference range : <=65. The reference range was not used to interpr et this result as erinn l/abnormal. [facility]2018-07-08 07:54:00 Test Item Value Reference Range Interpretation Comments AST (test code = AST) 14 See_Comment [Auto mated message] The system which ge nerated this result transmit emerson reference range : <=37. The reference range was not used to interpr et this result as erinn l/abnormal. [facility]2018-07-08 07:54:00 Test Item Value Reference Range Interpretation Comments Alk Phos (test code = Alk Phos) 82 39-136 [facility]2018-07-08 07:54:00 Test Item Value Reference Range Interpretation Comments Bili Total (test code = Bili Total) 0.5 0.2-1.3 [facility]2018-07-08 07:54:00 Test Item Value Reference Range Interpretation Comments eGFR (test code = eGFR) 10 [facility]2018-07-08 07:54:00 Test Item Value Reference Range Interpretation Comments Potassium Lvl (test code = Potassium 3.2 3.5-5.1 Lvl) [facility]2018-07-08 07:54:00 Test Item Value Reference Range Interpretation Comments Chloride Lvl (test code = Chloride Lvl) 103 95-109 [facility]2018-07-08 07:54:00 Test Item Value Reference Range Interpretation Comments Glucose Lvl (test code = Glucose Lvl) 95 70-99 [facility]2018-07-08 07:54:00 Test Item Value Reference Range Interpretation Comments BUN (test code = BUN) 34 7-22 [facility]2018-07-08 07:54:00 Test Item Value Reference Range Interpretation Comments Creatinine Lvl (test code = Creatinine 5.83 0.50-1.40 Lvl) [facility]2018-07-08 07:54:00 Test Item Value Reference Range Interpretation Comments Sodium Lvl (test code = Sodium Lvl) 138 135-145 [facility]2018-07-08 07:54:00 Test Item Value Reference Range Interpretation Comments CO2 (test code = CO2) 23 24-32 [facility]2018-07-08 07:54:00 Test Item Value Reference Range Interpretation Comments AGAP (test code = AGAP) 15.2 10.0-20.0 [facility]2018-07-08 07:54:00 Test Item Value Reference Range Interpretation Comments Calcium Lvl (test code = Calcium Lvl) 8.5 8.5-10.5 [facility]2018-07-08 07:54:00 Test Item Value Reference Range Interpretation Comments Phosphorus (test code = Phosphorus) 4.2 2.5-4.5 [facility] CentralMwitminZTMPQRAQDO0692-66-06 07:54:00 Test Item Value Reference Range Interpretation Comments Lymphocytes # (test code = Lymphocytes 1.5 1.0-5.5 #) [facility] CentralFrxgzbuZBIDDMIIBW9682-02-60 07:54:00 Test Item Value Reference Range Interpretation Comments Monocytes # (test code 0.5 See_Comment [Aut omated message] The = Monocytes #) system which generated this result tra nsmitted reference range : <=0.8. The reference r yared was not used to int erpret this result as normal/abnormal . [facility] CentralXlxzjciSXFWKUJJHO0919-02-20 07:54:00 Test Item Value Reference Range Interpretation Comments Basophils (test code = 1.0 See_Comment [Aut omated message] The Basophils) system which ge nerated this result tra nsmitted reference range : <=1.0. The reference r yared was not used to int erpret this result as normal/abnormal . [facility] CentralKonvvqnUQBAHYCVJU6265-06-22 07:54:00 Test Item Value Reference Range Interpretation Comments Segs-Bands # (test code = Segs-Bands #) 3.5 1.5-8.1 [facility] CentralCnbkimuOSFISAOYHQ9404-83-78 07:54:00 Test Item Value Reference Range Interpretation Comments Basophils # (test code 0.1 See_Comment [Aut omated message] The = Basophils #) system which generated this result tra nsmitted reference range : <=0.2. The reference r yared was not used to int erpret this result as normal/abnormal . [facility] CentralEfkzgtyVEQQOUHBAV5436-30-91 07:54:00 Test Item Value Reference Range Interpretation Comments Eosinophils # (test code 0.2 See_Comment [A utomated message] The = Eosinophils #) system whic h generated this result tra nsmitted reference range : <=0.5. The reference r yared was not used to int erpret this result as normal/abnormal . [facility] CentralQardmixXAQUEVVUGO5310-19-62 07:54:00 Test Item Value Reference Range Interpretation Comments Lymphocytes (test code = Lymphocytes) 26.7 20.0-40.0 [facility] CentralSbmtnwoESUHEULBQY4499-94-44 07:54:00 Test Item Value Reference Range Interpretation Comments Segs (test code = Segs) 61.0 45.0-75.0 [facility] CentralXowwxkvJHDIKDKUMX3169-56-66 07:54:00 Test Item Value Reference Range Interpretation Comments Monocytes (test code = Monocytes) 8.0 2.0-12.0 [facility] CentralUzspckdMYSCJAMBRH3518-09-09 07:54:00 Test Item Value Reference Range Interpretation Comments Eosinophils (test code = 3.3 See_Comment [A utomated message] The Eosinophils) system which ge nerated this result tra nsmitted reference range : <=4.0. The reference r yared was not used to int erpret this result as normal/abnormal . [facility] CentralFoamnueSUOSVRPNYE4579-05-74 07:54:00 Test Item Value Reference Range Interpretation Comments WBC (test code = WBC) 5.7 3.7-10.4 [facility] CentralMetjobiFCDPJIPMVU2347-70-91 07:54:00 Test Item Value Reference Range Interpretation Comments RBC (test code = RBC) 4.48 4.70-6.10 [facility] CentralVpmorjdDMVUILESQH2108-34-29 07:54:00 Test Item Value Reference Range Interpretation Comments RDW (test code = RDW) 17.7 11.5-14.5 [facility] CentralOzwziecXWJSEANSAY2572-97-75 07:54:00 Test Item Value Reference Range Interpretation Comments Platelet (test code = Platelet) 215 133-450 [facility] CentralNyhchonREWNLVDRNF4343-62-65 07:54:00 Test Item Value Reference Range Interpretation Comments MPV (test code = MPV) 7.2 7.4-10.4 [facility] CentralKmybwytGWQBYBNVFE6914-32-01 07:54:00 Test Item Value Reference Range Interpretation Comments Hgb (test code = Hgb) 11.6 14.0-18.0 [facility] CentralGneuiwiOYFSHDRCUS8217-60-96 07:54:00 Test Item Value Reference Range Interpretation Comments Hct (test code = Hct) 35.5 42.0-54.0 [facility] HtvyemfJZITRBVHVQ8758-63-49 07:54:00 Test Item Value Reference Range Interpretation Comments MCHC (test code = MCHC) 32.6 32.0-36.[address] [facility] HvvtclmDFUQMLBRCY9851-88-60 07:54:00 Test Item Value Reference Range Interpretation Comments MCV (test code = MCV) 79.2 80.0-94.0 [facility] NgdhcetUOLVKQBCFX2144-43-51 07:54:00 Test Item Value Reference Range Interpretation Comments MCH (test code = MCH) 25.8 pg 27.0-31.[address] [facility] OctavianCARDISmart Plate FISCZPM3414-96-64 07:54:00 Test Item Value Reference Range Interpretation Comments Troponin-I (test code 0.02 See_Comment [Auto mated message] The = Troponin-I) system which g enerated this result transmit emerson reference range : <=0.40. The reference r yared was not used to interpr et this result as erinn l/abnormal. [facility] Exam18 [id number] 07:54:00 Test Item Value Reference Range Interpretation Comments Total CK (test code = Total CK) 31 12-[address] [facility] [employer] MRQKG6907-22-78 07:54:00 Test Item Value Reference Range Interpretation Comments Magnesium Lvl (test code = Magnesium 1.9 1.8-2.4 Lvl) [facility] [employer] EFSVU7901-48-97 07:54:00 Test Item Value Reference Range Interpretation Comments B/C Ratio (test code = B/C Ratio) 6 1 6-[address] [facility] [employer] [id number] 07:54:00 Test Item Value Reference Range Interpretation Comments Albumin Lvl (test code = Albumin Lvl) 3.3 3.5-5.0 [facility] [employer] [id number] 07:54:00 Test Item Value Reference Range Interpretation Comments A/G Ratio (test code = A/G Ratio) 0.9 1 0.7-1.6 [facility] [employer] [id number] 07:54:00 Test Item Value Reference Range Interpretation Comments Total Protein (test code = Total 7.1 6.4-8.4 Protein) [facility]2018-07-08 07:54:00 Test Item Value Reference Range Interpretation Comments Globulin (test code = Globulin) 3.8 2.7-4.2 [facility]2018-07-08 07:54:00 Test Item Value Reference Range Interpretation Comments ALT (test code = ALT) 18 See_Comment [Auto mated message] The system which ge nerated this result transmit emerson reference range : <=65. The reference range was not used to interpr et this result as erinn l/abnormal. [facility]2018-07-08 07:54:00 Test Item Value Reference Range Interpretation Comments AST (test code = AST) 14 See_Comment [Auto mated message] The system which ge nerated this result transmit emerson reference range : <=37. The reference range was not used to interpr et this result as erinn l/abnormal. [facility]2018-07-08 07:54:00 Test Item Value Reference Range Interpretation Comments Alk Phos (test code = Alk Phos) 82 39-136 [facility]2018-07-08 07:54:00 Test Item Value Reference Range Interpretation Comments Bili Total (test code = Bili Total) 0.5 0.2-1.3 [facility]2018-07-08 07:54:00 Test Item Value Reference Range Interpretation Comments eGFR (test code = eGFR) 10 [facility]2018-07-08 07:54:00 Test Item Value Reference Range Interpretation Comments Potassium Lvl (test code = Potassium 3.2 3.5-5.1 Lvl) [facility] [facility]2018-07-08 07:54:00 Test Item Value Reference Range Interpretation Comments Chloride Lvl (test code = Chloride Lvl) 103 95-109 [facility]2018-07-08 07:54:00 Test Item Value Reference Range Interpretation Comments Glucose Lvl (test code = Glucose Lvl) 95 70-99 [facility]2018-07-08 07:54:00 Test Item Value Reference Range Interpretation Comments BUN (test code = BUN) 34 7-22 [facility]2018-07-08 07:54:00 Test Item Value Reference Range Interpretation Comments Creatinine Lvl (test code = Creatinine 5.83 0.50-1.40 Lvl) [facility]2018-07-08 07:54:00 Test Item Value Reference Range Interpretation Comments Sodium Lvl (test code = Sodium Lvl) 138 135-145 [facility]2018-07-08 07:54:00 Test Item Value Reference Range Interpretation Comments CO2 (test code = CO2) 23 24-32 [facility]2018-07-08 07:54:00 Test Item Value Reference Range Interpretation Comments AGAP (test code = AGAP) 15.2 10.0-20.0 [facility]2018-07-08 07:54:00 Test Item Value Reference Range Interpretation Comments Calcium Lvl (test code = Calcium Lvl) 8.5 8.5-10.5 [facility]2018-07-08 07:54:00 Test Item Value Reference Range Interpretation Comments Phosphorus (test code = Phosphorus) 4.2 2.5-4.5 [facility]IznosgqYQUJFIYAIE3665-96-42 07:54:00 Test Item Value Reference Range Interpretation Comments Lymphocytes # (test code = Lymphocytes 1.5 1.0-5.5 #) [facility] CentralLgfuvalJLKXTGHKUH9170-47-86 07:54:00 Test Item Value Reference Range Interpretation Comments Monocytes # (test code 0.5 See_Comment [Aut omated message] The = Monocytes #) system which generated this result tra nsmitted reference range : <=0.8. The reference r yared was not used to int erpret this result as normal/abnormal . [facility] CentralOwbyudnPBERWCOEDZ3246-27-63 07:54:00 Test Item Value Reference Range Interpretation Comments Basophils (test code = 1.0 See_Comment [Aut omated message] The Basophils) system which ge nerated this result tra nsmitted reference range : <=1.0. The reference r yared was not used to int erpret this result as normal/abnormal . [facility] CentralEgzjghhJQLKDMEOEV0774-12-19 07:54:00 Test Item Value Reference Range Interpretation Comments Segs-Bands # (test code = Segs-Bands #) 3.5 1.5-8.1 [facility] CentralHvauicmWCAGJJECOG2657-02-49 07:54:00 Test Item Value Reference Range Interpretation Comments Basophils # (test code 0.1 See_Comment [Aut omated message] The = Basophils #) system which generated this result tra nsmitted reference range : <=0.2. The reference r yared was not used to int erpret this result as normal/abnormal . [facility] CentralCvtwjykDZYDQBQUHW1269-97-20 07:54:00 Test Item Value Reference Range Interpretation Comments Eosinophils # (test code 0.2 See_Comment [A utomated message] The = Eosinophils #) system whic h generated this result tra nsmitted reference range : <=0.5. The reference r yared was not used to int erpret this result as normal/abnormal . [facility] CentralKxgqgsfLSMSCYZYKR0441-89-09 07:54:00 Test Item Value Reference Range Interpretation Comments Lymphocytes (test code = Lymphocytes) 26.7 20.0-40.0 [facility] CentralAybephnEPYZOHXCUR5880-87-33 07:54:00 Test Item Value Reference Range Interpretation Comments Segs (test code = Segs) 61.0 45.0-75.0 [facility] CentralIwzjgptYMEWTESZVU8931-71-20 07:54:00 Test Item Value Reference Range Interpretation Comments Monocytes (test code = Monocytes) 8.0 2.0-12.0 [facility] CentralZnslfdlQLSRHWJIZD3149-20-87 07:54:00 Test Item Value Reference Range Interpretation Comments Eosinophils (test code = 3.3 See_Comment [A utomated message] The Eosinophils) system which ge nerated this result tra nsmitted reference range : <=4.0. The reference r yared was not used to int erpret this result as normal/abnormal . [facility] CentralRqqaprqLBMFHSHPOF6198-24-79 07:54:00 Test Item Value Reference Range Interpretation Comments WBC (test code = WBC) 5.7 3.7-10.4 [facility] CentralRricyemAXMWOEYMTO6854-03-12 07:54:00 Test Item Value Reference Range Interpretation Comments RBC (test code = RBC) 4.48 4.70-6.10 [facility] CentralCqbthbpCHNSTCOCBA4788-76-80 07:54:00 Test Item Value Reference Range Interpretation Comments RDW (test code = RDW) 17.7 11.5-14.5 [facility] CentralWzvnhsbGJECZMSLNW1306-44-80 07:54:00 Test Item Value Reference Range Interpretation Comments Platelet (test code = Platelet) 215 133-450 [facility] CentralSdsibwnNJVLSSUNMZ1800-80-10 07:54:00 Test Item Value Reference Range Interpretation Comments MPV (test code = MPV) 7.2 7.4-10.4 [facility]ISB7006[facility]59-11 07:54:00 Test Item Value Reference Range Interpretation Comments Hgb (test code = Hgb) 11.6 14.0-18.0 [facility] HospitalHjgsjisNCDPOZNKYQ7678-98-02 07:54:00 Test Item Value Reference Range Interpretation Comments Hct (test code = Hct) 35.5 42.0-54.0 [facility] HospitalTwmlzmlULDFDRFWQB0158-41-95 07:54:00 Test Item Value Reference Range Interpretation Comments MCHC (test code = MCHC) 32.6 32.0-36.0 [facility] HospitalPjirwkpHLFNWSLYAL1519-61-80 07:54:00 Test Item Value Reference Range Interpretation Comments MCV (test code = MCV) 79.2 80.0-94.0 [facility]jtYIWWZULMZR4085-84-54 07:54:00 Test Item Value Reference Range Interpretation Comments MCH (test code = MCH) 25.8 pg 27.0-31.0 [facility] LaboratoryCARDIAC JIJKNSR1806-05-21 07:54:00 Test Item Value Reference Range Interpretation Comments Troponin-I (test code 0.02 See_Comment [Auto mated message] The = Troponin-I) system which g enerated this result transmit emerson reference range : <=0.40. The reference r yared was not used to interpr et this result as erinn l/abnormal. [facility] Exam18 [id number] 07:54:00 Test Item Value Reference Range Interpretation Comments Total CK (test code = Total CK) 31 12-[address] [facility] [employer] GVDWR7169-87-51 07:54:00 Test Item Value Reference Range Interpretation Comments Magnesium Lvl (test code = Magnesium 1.9 1.8-2.4 Lvl) [facility] [employer] DMPFJ5722-87-20 07:54:00 Test Item Value Reference Range Interpretation Comments B/C Ratio (test code = B/C Ratio) 6 1 6-[address] [facility] [employer] [id number] 07:54:00 Test Item Value Reference Range Interpretation Comments Albumin Lvl (test code = Albumin Lvl) 3.3 3.5-5.[address] [facility] [employer] WECWT2047-80-01 07:54:00 Test Item Value Reference Range Interpretation Comments A/G Ratio (test code = A/G Ratio) 0.9 1 0.7-1.6 [facility]2018-07-08 07:54:00 Test Item Value Reference Range Interpretation Comments Total Protein (test code = Total 7.1 6.4-8.4 Protein) [facility]2018-07-08 07:54:00 Test Item Value Reference Range Interpretation Comments Globulin (test code = Globulin) 3.8 2.7-4.2 [facility]2018-07-08 07:54:00 Test Item Value Reference Range Interpretation Comments ALT (test code = ALT) 18 See_Comment [Auto mated message] The system which ge nerated this result transmit emerson reference range : <=65. The reference range was not used to interpr et this result as erinn l/abnormal. [place] [id number] 07:54:00 Test Item Value Reference Range Interpretation Comments AST (test code = AST) 14 See_Comment [Auto mated message] The system which ge nerated this result transmit emerson reference range : <=37. The reference range was not used to interpr et this result as erinn l/abnormal. [facility]2018-07-08 07:54:00 Test Item Value Reference Range Interpretation Comments Alk Phos (test code = Alk Phos) 82 39-136 [facility]2018-07-08 07:54:00 Test Item Value Reference Range Interpretation Comments Bili Total (test code = Bili Total) 0.5 0.2-1.3 [facility]2018-07-08 07:54:00 Test Item Value Reference Range Interpretation Comments eGFR (test code = eGFR) 10 [facility]2018-07-08 07:54:00 Test Item Value Reference Range Interpretation Comments Potassium Lvl (test code = Potassium 3.2 3.5-5.1 Lvl) [facility]2018-07-08 07:54:00 Test Item Value Reference Range Interpretation Comments Chloride Lvl (test code = Chloride Lvl) 103 95-109 [facility]2018-07-08 07:54:00 Test Item Value Reference Range Interpretation Comments Glucose Lvl (test code = Glucose Lvl) 95 70-99 [facility]2018-07-08 07:54:00 Test Item Value Reference Range Interpretation Comments BUN (test code = BUN) 34 7-22 [facility]2018-07-08 07:54:00 Test Item Value Reference Range Interpretation Comments Creatinine Lvl (test code = Creatinine 5.83 0.50-1.40 Lvl) [facility]2018-07-08 07:54:00 Test Item Value Reference Range Interpretation Comments Sodium Lvl (test code = Sodium Lvl) 138 135-145 [facility]2018-07-08 07:54:00 Test Item Value Reference Range Interpretation Comments CO2 (test code = CO2) 23 24-32 [facility]2018-07-08 07:54:00 Test Item Value Reference Range Interpretation Comments AGAP (test code = AGAP) 15.2 10.0-20.0 [place] [id number] 07:54:00 Test Item Value Reference Range Interpretation Comments Calcium Lvl (test code = Calcium Lvl) 8.5 8.5-10.5 [facility]2018-07-08 07:54:00 Test Item Value Reference Range Interpretation Comments Phosphorus (test code = Phosphorus) 4.2 2.5-4.5 [facility] CentralXomrepaWDYBRYQEIQ4766-89-67 07:54:00 Test Item Value Reference Range Interpretation Comments Lymphocytes # (test code = Lymphocytes 1.5 1.0-5.5 #) [facility] CentralJfgbzioPPVPINSWKI1894-63-52 07:54:00 Test Item Value Reference Range Interpretation Comments Monocytes # (test code 0.5 See_Comment [Aut omated message] The = Monocytes #) system which generated this result tra nsmitted reference range : <=0.8. The reference r yared was not used to int erpret this result as normal/abnormal . [facility] CentralUzivljiPXXELGWHIG7603-58-60 07:54:00 Test Item Value Reference Range Interpretation Comments Basophils (test code = 1.0 See_Comment [Aut omated message] The Basophils) system which ge nerated this result tra nsmitted reference range : <=1.0. The reference r yared was not used to int erpret this result as normal/abnormal . [facility] CentralWukvqehFIMOHWKYLR4208-89-09 07:54:00 Test Item Value Reference Range Interpretation Comments Segs-Bands # (test code = Segs-Bands #) 3.5 1.5-8.1 [facility] CentralEduowglMCUKXPIOGN7803-22-73 07:54:00 Test Item Value Reference Range Interpretation Comments Basophils # (test code 0.1 See_Comment [Aut omated message] The = Basophils #) system which generated this result tra nsmitted reference range : <=0.2. The reference r yared was not used to int erpret this result as normal/abnormal . [facility] CentralJkupzjhMSTEDGZNRO9557-00-15 07:54:00 Test Item Value Reference Range Interpretation Comments Eosinophils # (test code 0.2 See_Comment [A utomated message] The = Eosinophils #) system whic h generated this result tra nsmitted reference range : <=0.5. The reference r yared was not used to int erpret this result as normal/abnormal . [facility] CentralUbdodlyEJPANDTTDG9772-95-74 07:54:00 Test Item Value Reference Range Interpretation Comments Lymphocytes (test code = Lymphocytes) 26.7 20.0-40.0 [facility] CentralShgwclvNPTBSPBLXY3633-94-85 07:54:00 Test Item Value Reference Range Interpretation Comments Segs (test code = Segs) 61.0 45.0-75.0 [facility] CentralKhnftbpQZMUAZFHMN3149-26-49 07:54:00 Test Item Value Reference Range Interpretation Comments Monocytes (test code = Monocytes) 8.0 2.0-12.0 [facility] CentralYtijqjmXJLUMPARBF0662-09-24 07:54:00 Test Item Value Reference Range Interpretation Comments Eosinophils (test code = 3.3 See_Comment [A utomated message] The Eosinophils) system which ge nerated this result tra nsmitted reference range : <=4.0. The reference r yared was not used to int erpret this result as normal/abnormal . [facility] CentralQwukukvKDWDBEZXVQ6635-76-81 07:54:00 Test Item Value Reference Range Interpretation Comments WBC (test code = WBC) 5.7 3.7-10.4 [facility] CentralUuituumCXAKRSBGPI2545-08-11 07:54:00 Test Item Value Reference Range Interpretation Comments RBC (test code = RBC) 4.48 4.70-6.10 [facility] CentralPbumsirRUZDEZIOAM2211-82-08 07:54:00 Test Item Value Reference Range Interpretation Comments RDW (test code = RDW) 17.7 11.5-14.5 [facility] HospitalOvankgzPQKAYMYWSP2155-42-40 07:54:00 Test Item Value Reference Range Interpretation Comments Platelet (test code = Platelet) 215 133-450 [facility] HospitalKgeldghQUFOQPMRDE8047-27-91 07:54:00 Test Item Value Reference Range Interpretation Comments MPV (test code = MPV) 7.2 7.4-10.4 [facility] HospitalJqfydryWZEUHFQKQG0648-24-13 07:54:00 Test Item Value Reference Range Interpretation Comments Hgb (test code = Hgb) 11.6 14.0-18.0 [facility] HospitalTgbzxtoCHAXWXQXMJ8205-69-38 07:54:00 Test Item Value Reference Range Interpretation Comments Hct (test code = Hct) 35.5 42.0-54.0 [facility] CentralEdeolbcFTHOGKHKDD9322-77-55 07:54:00 Test Item Value Reference Range Interpretation Comments MCHC (test code = MCHC) 32.6 32.0-36.0 [facility] HospitalSflqehzZSXQTOAKND2429-34-73 07:54:00 Test Item Value Reference Range Interpretation Comments MCV (test code = MCV) 79.2 80.0-94.0 [facility] HospitalEdsiqqfUPSJHPTSZQ4504-23-98 07:54:00 Test Item Value Reference Range Interpretation Comments MCH (test code = MCH) 25.8 pg 27.0-31.0 [facility]12Return ZYEFNDV4624-01-99 02:58:00 Test Item Value Reference Range Interpretation Comments Troponin-I (test code no gt See_Comment [Auto mated message] The = Troponin-I) system which g enerated this result transmit emerson reference range : <=0.40. The reference r yared was not used to interpr et this result as erinn l/abnormal. [facility]Zecco EYOLEKP7926-37-29 02:58:00 Test Item Value Reference Range Interpretation Comments Troponin-I (test code no gt See_Comment [Auto mated message] The = Troponin-I) system which g enerated this result transmit emerson reference range : <=0.40. The reference r yared was not used to interpr et this result as erinn l/abnormal. [facility]Zecco HQCWMNK5232-52-83 02:58:00 Test Item Value Reference Range Interpretation Comments Troponin-I (test code no gt See_Comment [Auto mated message] The = Troponin-I) system which g enerated this result transmit emerson reference range : <=0.40. The reference r yared was not used to interpr et this result as erinn l/abnormal. [facility] [employer]2018-07-08 00:12:00 Test Item Value Reference Range Interpretation Comments proBNP (test code = 64900 See_Comment [Automa emerson message] The proBNP) system which ge nerated this result tra nsmitted reference range : <=125. The reference r yared was not used to int erpret this result as erinn l/abnormal. [facility] [employer]2018-07-08 00:12:00 Test Item Value Reference Range Interpretation Comments Total CK (test code = Total CK) 37 12-[address] [facility] [employer]2018-07-08 00:12:00 Test Item Value Reference Range Interpretation Comments CK MB (test code = CK MB) 1.0 0.5-3.[address] [facility] [employer]2018-07-08 00:12:00 Test Item Value Reference Range Interpretation Comments CK MB Index (test 2.7 1 See_Comment [Automate d message] The code = CK MB Index) system w [facility] generated this result transmit emerson reference range : <=2.5. The reference range was not used to interpr et this result as erinn l/abnormal. [employer]2018-07-08 00:12:00 Test Item Value Reference Range Interpretation Comments eGFR (test code = eGFR) [address] [facility] [employer]2018-07-08 00:12:00 Test Item Value Reference Range Interpretation Comments Alk Phos (test code = Alk Phos) 88 39-[address] [facility] [employer]2018-07-08 00:12:00 Test Item Value Reference Range Interpretation Comments AST (test code = AST) 14 See_Comment [Auto mated message] The system which ge nerated this result transmit emerson reference range : <=37. The reference range was not used to interpr et this result as erinn l/abnormal. [employer]2018-07-08 00:12:00 Test Item Value Reference Range Interpretation Comments Total Protein (test code = Total 7.4 6.4-8.4 Protein) [facility] [employer]2018-07-08 00:12:00 Test Item Value Reference Range Interpretation Comments Bili Total (test code = Bili Total) 0.5 0.2-1.3 [facility]2018-07-08 00:12:00 Test Item Value Reference Range Interpretation Comments ALT (test code = ALT) 17 See_Comment [Auto mated message] The system which ge nerated this result transmit emerson reference range : <=65. The reference range was not used to interpr et this result as erinn l/abnormal. [facility]2018-07-08 00:12:00 Test Item Value Reference Range Interpretation Comments Albumin Lvl (test code = Albumin Lvl) 3.2 3.5-5.0 [facility]2018-07-08 00:12:00 Test Item Value Reference Range Interpretation Comments Calcium Lvl (test code = Calcium Lvl) 8.1 8.5-10.5 [facility]2018-07-08 00:12:00 Test Item Value Reference Range Interpretation Comments Sodium Lvl (test code = Sodium Lvl) 137 135-145 [facility]2018-07-08 00:12:00 Test Item Value Reference Range Interpretation Comments CO2 (test code = CO2) 26 24-32 [facility]2018-07-08 00:12:00 Test Item Value Reference Range Interpretation Comments Creatinine Lvl (test code = Creatinine 4.94 0.50-1.40 Lvl) [facility]2018-07-08 00:12:00 Test Item Value Reference Range Interpretation Comments BUN (test code = BUN) 24 7-22 [facility]2018-07-08 00:12:00 Test Item Value Reference Range Interpretation Comments Glucose Lvl (test code = Glucose Lvl) 156 70-99 [facility]2018-07-08 00:12:00 Test Item Value Reference Range Interpretation Comments B/C Ratio (test code = B/C Ratio) 5 1 6-25 [facility]2018-07-08 00:12:00 Test Item Value Reference Range Interpretation Comments AGAP (test code = AGAP) 12.3 10.0-20.0 [place] [id number] 00:12:00 Test Item Value Reference Range Interpretation Comments A/G Ratio (test code = A/G Ratio) 0.8 1 0.7-1.6 [facility]2018-07-08 00:12:00 Test Item Value Reference Range Interpretation Comments Globulin (test code = Globulin) 4.2 2.7-4.2 [facility]2018-07-08 00:12:00 Test Item Value Reference Range Interpretation Comments Chloride Lvl (test code = Chloride Lvl) 102 95-109 [facility]2018-07-08 00:12:00 Test Item Value Reference Range Interpretation Comments Potassium Lvl (test code = Potassium 3.3 3.5-5.1 Lvl) [facility] CentralLsqkawrOPIVLYDJMT9571-07-24 00:12:00 Test Item Value Reference Range Interpretation Comments WBC (test code = WBC) 5.0 3.7-10.4 [facility] CentralIjriyhnOVVNIHTSKW4115-58-63 00:12:00 Test Item Value Reference Range Interpretation Comments RDW (test code = RDW) 17.6 11.5-14.5 [facility] CentralOwbebeyIRLZUDKGQA5707-95-80 00:12:00 Test Item Value Reference Range Interpretation Comments MCHC (test code = MCHC) 33.5 32.0-36.0 [facility] CentralTlhsqjhQMZSEUMYWN0889-27-03 00:12:00 Test Item Value Reference Range Interpretation Comments MPV (test code = MPV) 7.3 7.4-10.4 [facility] CentralSjbpocnLGRWAQPHKY5960-02-44 00:12:00 Test Item Value Reference Range Interpretation Comments RBC (test code = RBC) 4.25 4.70-6.10 [facility] CentralLfxmcssNGNJLZHJJE4870-60-86 00:12:00 Test Item Value Reference Range Interpretation Comments MCH (test code = MCH) 26.0 pg 27.0-31.0 [facility] CentralHgbeefyYRAZUZYGSE8440-21-34 00:12:00 Test Item Value Reference Range Interpretation Comments MCV (test code = MCV) 77.5 80.0-94.0 [facility] CentralHffuoijPDQTSDYLHL0562-06-71 00:12:00 Test Item Value Reference Range Interpretation Comments Hct (test code = Hct) 33.0 42.0-54.0 [facility] CentralAkdeszcHVVVKGJZMK5929-95-99 00:12:00 Test Item Value Reference Range Interpretation Comments Hgb (test code = Hgb) 11.1 14.0-18.0 [facility] CentralSrszlhbKYUFDQZCEP7926-68-06 00:12:00 Test Item Value Reference Range Interpretation Comments Platelet (test code = Platelet) 208 133-450 [facility] CentralExipaesCWXXNRKTRM7860-80-74 00:12:00 Test Item Value Reference Range Interpretation Comments Segs-Bands # (test code = Segs-Bands #) 3.6 1.5-8.1 [facility] CentralMmqufpwIZDHUXWDXW5804-25-33 00:12:00 Test Item Value Reference Range Interpretation Comments Lymphocytes # (test code = Lymphocytes 0.9 1.0-5.5 #) [facility] CentralZcjsmjiAVUHIZZJGI8799-98-08 00:12:00 Test Item Value Reference Range Interpretation Comments Basophils # (test code 0.1 See_Comment [Aut omated message] The = Basophils #) system which generated this result tra nsmitted reference range : <=0.2. The reference r yared was not used to int erpret this result as normal/abnormal . [facility] CentralRrglkbaJVBQCGIIZI5506-35-05 00:12:00 Test Item Value Reference Range Interpretation Comments Eosinophils # (test code 0.1 See_Comment [A utomated message] The = Eosinophils #) system whic h generated this result tra nsmitted reference range : <=0.5. The reference r yared was not used to int erpret this result as normal/abnormal . [facility] CentralEsjfixwQMXFLXSWSR8221-13-18 00:12:00 Test Item Value Reference Range Interpretation Comments Monocytes # (test code 0.4 See_Comment [Aut omated message] The = Monocytes #) system which generated this result tra nsmitted reference range : <=0.8. The reference r yared was not used to int erpret this result as normal/abnormal . [facility] CentralWwvrwseCJVDSRBQOQ4409-11-41 00:12:00 Test Item Value Reference Range Interpretation Comments Basophils (test code = 1.0 See_Comment [Aut omated message] The Basophils) system which ge nerated this result tra nsmitted reference range : <=1.0. The reference r yared was not used to int erpret this result as normal/abnormal . [facility] CentralCesfpmsDBUHEFLNWY4612-11-44 00:12:00 Test Item Value Reference Range Interpretation Comments Eosinophils (test code = 2.0 See_Comment [A utomated message] The Eosinophils) system which ge nerated this result tra nsmitted reference range : <=4.0. The reference r yared was not used to int erpret this result as normal/abnormal . [facility]wmzmbwUHSDYXEFLL3818-45-82 00:12:00 Test Item Value Reference Range Interpretation Comments Microcyte (test code = 1+ *ABN*(04/14/18 7:12 Microcyte) PM) [facility] HospitalJihpvleJEVPTECSNW7706-91-04 00:12:00 Test Item Value Reference Range Interpretation Comments Plt Morph (test code = Normal (04/14/18 7:12 PM) Plt Morph) [facility] HospitalUhvnbimPGUNCPWGVP3593-18-30 00:12:00 Test Item Value Reference Range Interpretation Comments Lymphocytes (test code = Lymphocytes) 17.2 20.0-40.0 [facility]ZpflfmnIJYXWRVNDV2219-57-02 00:12:00 Test Item Value Reference Range Interpretation Comments Segs (test code = Segs) 72.3 45.0-75.0 [facility] HospitalHjecrznENOGJRIHXQ9112-20-14 00:12:00 Test Item Value Reference Range Interpretation Comments Monocytes (test code = Monocytes) 7.5 2.0-12.0 [facility] 00:12:00 Test Item Value Reference Range Interpretation Comments proBNP (test code = 88818 See_Comment [Automa emerson message] The proBNP) system which ge nerated this result tra nsmitted reference range : <=125. The reference r yared was not used to int erpret this result as erinn l/abnormal. [facility] 00:12:00 Test Item Value Reference Range Interpretation Comments Total CK (test code = Total CK) 37 12-191 [facility] QWZHJHI6435-56-36 00:12:00 Test Item Value Reference Range Interpretation Comments CK MB (test code = CK MB) 1.0 0.5-3.6 [facility] BDWOKQY9175-82-43 00:12:00 Test Item Value Reference Range Interpretation Comments CK MB Index (test 2.7 1 See_Comment [Automate d message] The code = CK MB Index) system w [facility] generated this result transmit emerson reference range : <=2.5. The reference range was not used to interpr et this result as erinn l/abnormal. [facility]2018-07-08 00:12:00 Test Item Value Reference Range Interpretation Comments eGFR (test code = eGFR) 12 [facility]2018-07-08 00:12:00 Test Item Value Reference Range Interpretation Comments Alk Phos (test code = Alk Phos) 88 39-136 [facility]2018-07-08 00:12:00 Test Item Value Reference Range Interpretation Comments AST (test code = AST) 14 See_Comment [Auto mated message] The system which ge nerated this result transmit emerson reference range : <=37. The reference range was not used to interpr et this result as erinn l/abnormal. [facility]2018-07-08 00:12:00 Test Item Value Reference Range Interpretation Comments Total Protein (test code = Total 7.4 6.4-8.4 Protein) [facility]2018-07-08 00:12:00 Test Item Value Reference Range Interpretation Comments Bili Total (test code = Bili Total) 0.5 0.2-1.3 [facility]2018-07-08 00:12:00 Test Item Value Reference Range Interpretation Comments ALT (test code = ALT) 17 See_Comment [Auto mated message] The system which ge nerated this result transmit emerson reference range : <=65. The reference range was not used to interpr et this result as erinn l/abnormal. [facility]2018-07-08 00:12:00 Test Item Value Reference Range Interpretation Comments Albumin Lvl (test code = Albumin Lvl) 3.2 3.5-5.0 [facility]2018-07-08 00:12:00 Test Item Value Reference Range Interpretation Comments Calcium Lvl (test code = Calcium Lvl) 8.1 8.5-10.5 [facility]2018-07-08 00:12:00 Test Item Value Reference Range Interpretation Comments Sodium Lvl (test code = Sodium Lvl) 137 135-145 [facility]2018-07-08 00:12:00 Test Item Value Reference Range Interpretation Comments CO2 (test code = CO2) 26 24-32 [facility]2018-07-08 00:12:00 Test Item Value Reference Range Interpretation Comments Creatinine Lvl (test code = Creatinine 4.94 0.50-1.40 Lvl) [facility]2018-07-08 00:12:00 Test Item Value Reference Range Interpretation Comments BUN (test code = BUN) 24 7-22 [facility]2018-07-08 00:12:00 Test Item Value Reference Range Interpretation Comments Glucose Lvl (test code = Glucose Lvl) 156 70-99 [facility]2018-07-08 00:12:00 Test Item Value Reference Range Interpretation Comments B/C Ratio (test code = B/C Ratio) 5 1 6-25 [facility]2018-07-08 00:12:00 Test Item Value Reference Range Interpretation Comments AGAP (test code = AGAP) 12.3 10.0-20.0 [facility]2018-07-08 00:12:00 Test Item Value Reference Range Interpretation Comments A/G Ratio (test code = A/G Ratio) 0.8 1 0.7-1.6 [facility]2018-07-08 00:12:00 Test Item Value Reference Range Interpretation Comments Globulin (test code = Globulin) 4.2 2.7-4.2 [facility]2018-07-08 00:12:00 Test Item Value Reference Range Interpretation Comments Chloride Lvl (test code = Chloride Lvl) 102 95-109 [facility]2018-07-08 00:12:00 Test Item Value Reference Range Interpretation Comments Potassium Lvl (test code = Potassium 3.3 3.5-5.1 Lvl) [facility]RpmgtubKQMFVGDXIL5752-79-88 00:12:00 Test Item Value Reference Range Interpretation Comments WBC (test code = WBC) 5.0 3.7-10.4 [facility] CentralZjhtidqIKPEIXZGES7377-01-29 00:12:00 Test Item Value Reference Range Interpretation Comments RDW (test code = RDW) 17.6 11.5-14.5 [facility] CentralMfbnuauRIIEMQJABH3358-01-07 00:12:00 Test Item Value Reference Range Interpretation Comments MCHC (test code = MCHC) 33.5 32.0-36.0 [facility] CentralYogoqqkDPLJDXUGTP9783-77-77 00:12:00 Test Item Value Reference Range Interpretation Comments MPV (test code = MPV) 7.3 7.4-10.4 [facility] CentralUdafkuuTRFYBBKFQT3016-98-73 00:12:00 Test Item Value Reference Range Interpretation Comments RBC (test code = RBC) 4.25 4.70-6.10 [facility] CentralEgcxuclGDNTBHZCGV8622-78-73 00:12:00 Test Item Value Reference Range Interpretation Comments MCH (test code = MCH) 26.0 pg 27.0-31.0 [facility] CentralSbfjjcoCQGFABQBBL0077-00-59 00:12:00 Test Item Value Reference Range Interpretation Comments MCV (test code = MCV) 77.5 80.0-94.0 [facility] CentralMyzitqkULUTCWQMAX2292-14-96 00:12:00 Test Item Value Reference Range Interpretation Comments Hct (test code = Hct) 33.0 42.0-54.0 [facility] CentralOklromoUKTUPTJCGZ4042-18-83 00:12:00 Test Item Value Reference Range Interpretation Comments Hgb (test code = Hgb) 11.1 14.0-18.0 [facility] CentralRdovqtiKVBRYVEWDP4237-47-75 00:12:00 Test Item Value Reference Range Interpretation Comments Platelet (test code = Platelet) 208 133-450 [facility] CentralAelsjzqCOCSLKHOZW6866-23-37 00:12:00 Test Item Value Reference Range Interpretation Comments Segs-Bands # (test code = Segs-Bands #) 3.6 1.5-8.1 [facility] CentralHuzrgzoRXQVTZJWYS0642-83-10 00:12:00 Test Item Value Reference Range Interpretation Comments Lymphocytes # (test code = Lymphocytes 0.9 1.0-5.5 #) [facility] CentralCyagbiyJFTRJPZBCD7549-73-86 00:12:00 Test Item Value Reference Range Interpretation Comments Basophils # (test code 0.1 See_Comment [Aut omated message] The = Basophils #) system which generated this result tra nsmitted reference range : <=0.2. The reference r yared was not used to int erpret this result as normal/abnormal . [facility] CentralQysjfydNKKUTZFQFS1850-24-28 00:12:00 Test Item Value Reference Range Interpretation Comments Eosinophils # (test code 0.1 See_Comment [A utomated message] The = Eosinophils #) system whic h generated this result tra nsmitted reference range : <=0.5. The reference r yared was not used to int erpret this result as normal/abnormal . [facility] CentralWamadxkWQOUQROLYK8369-57-12 00:12:00 Test Item Value Reference Range Interpretation Comments Monocytes # (test code 0.4 See_Comment [Aut omated message] The = Monocytes #) system which generated this result tra nsmitted reference range : <=0.8. The reference r yared was not used to int erpret this result as normal/abnormal . [facility] CentralYfodjbhGLJRZORGCM9376-94-47 00:12:00 Test Item Value Reference Range Interpretation Comments Basophils (test code = 1.0 See_Comment [Aut omated message] The Basophils) system which ge nerated this result tra nsmitted reference range : <=1.0. The reference r yared was not used to int erpret this result as normal/abnormal . [facility] CentralSgofoikTREKCHOBFC7224-54-72 00:12:00 Test Item Value Reference Range Interpretation Comments Eosinophils (test code = 2.0 See_Comment [A utomated message] The Eosinophils) system which ge nerated this result tra nsmitted reference range : <=4.0. The reference r yared was not used to int erpret this result as normal/abnormal . [facility] CentralUcbqfepKTZCNHZBTQ0711-02-85 00:12:00 Test Item Value Reference Range Interpretation Comments Microcyte (test code = 1+ *ABN*(04/14/18 7:12 Microcyte) PM) [facility] CentralQhxyuvtMIWUNNCUYT2550-98-20 00:12:00 Test Item Value Reference Range Interpretation Comments Plt Morph (test code = Normal (04/14/18 7:12 PM) Plt Morph) [facility] CentralZnmyzgoWRIHNGWOKD8868-53-16 00:12:00 Test Item Value Reference Range Interpretation Comments Lymphocytes (test code = Lymphocytes) 17.2 20.0-40.0 [facility]PtgukhkYCNEUWGPQC1476-64-80 00:12:00 Test Item Value Reference Range Interpretation Comments Segs (test code = Segs) 72.3 45.0-75.0 [facility] CentralLrsvfrtNKHLNEGKLZ2041-20-03 00:12:00 Test Item Value Reference Range Interpretation Comments Monocytes (test code = Monocytes) 7.5 2.0-12.0 [facility] HospitalCARDIAC DYXQVIG8596-92-13 00:12:00 Test Item Value Reference Range Interpretation Comments proBNP (test code = 58451 See_Comment [Automa emerson message] The proBNP) system which ge nerated this result tra nsmitted reference range : <=125. The reference r yared was not used to int erpret this result as erinn l/abnormal. [facility] URCIZRY4805-76-36 00:12:00 Test Item Value Reference Range Interpretation Comments Total CK (test code = Total CK) 37 12-191 [facility]12Return LRDLPYT7127-50-65 00:12:00 Test Item Value Reference Range Interpretation Comments CK MB (test code = CK MB) 1.0 0.5-3.6 [facility] KVANGKF5427-60-53 00:12:00 Test Item Value Reference Range Interpretation Comments CK MB Index (test 2.7 1 See_Comment [Automate d message] The code = CK MB Index) system w [facility] generated this result transmit emerson reference range : <=2.5. The reference range was not used to interpr et this result as erinn l/abnormal. [facility] [employer] [id number] 00:12:00 Test Item Value Reference Range Interpretation Comments eGFR (test code = eGFR) [address] [facility] [employer] CFMNK8659-73-97 00:12:00 Test Item Value Reference Range Interpretation Comments Alk Phos (test code = Alk Phos) 88 39-[address] [facility] [employer] [id number] 00:12:00 Test Item Value Reference Range Interpretation Comments AST (test code = AST) 14 See_Comment [Auto mated message] The system which ge nerated this result transmit emerson reference range : <=37. The reference range was not used to interpr et this result as erinn l/abnormal. [facility] [employer] NAJUY3022-04-65 00:12:00 Test Item Value Reference Range Interpretation Comments Total Protein (test code = Total 7.4 6.4-8.4 Protein) [facility] [employer] [id number] 00:12:00 Test Item Value Reference Range Interpretation Comments Bili Total (test code = Bili Total) 0.5 0.2-1.[address] [facility] [employer] [id number] 00:12:00 Test Item Value Reference Range Interpretation Comments ALT (test code = ALT) 17 See_Comment [Auto mated message] The system which ge nerated this result transmit emerson reference range : <=65. The reference range was not used to interpr et this result as erinn l/abnormal. [facility]2018-07-08 00:12:00 Test Item Value Reference Range Interpretation Comments Albumin Lvl (test code = Albumin Lvl) 3.2 3.5-5.0 [facility]2018-07-08 00:12:00 Test Item Value Reference Range Interpretation Comments Calcium Lvl (test code = Calcium Lvl) 8.1 8.5-10.5 [facility]2018-07-08 00:12:00 Test Item Value Reference Range Interpretation Comments Sodium Lvl (test code = Sodium Lvl) 137 135-145 [facility]2018-07-08 00:12:00 Test Item Value Reference Range Interpretation Comments CO2 (test code = CO2) 26 24-32 [facility]2018-07-08 00:12:00 Test Item Value Reference Range Interpretation Comments Creatinine Lvl (test code = Creatinine 4.94 0.50-1.40 Lvl) [facility]2018-07-08 00:12:00 Test Item Value Reference Range Interpretation Comments BUN (test code = BUN) 24 7-22 [facility]2018-07-08 00:12:00 Test Item Value Reference Range Interpretation Comments Glucose Lvl (test code = Glucose Lvl) 156 70-99 [facility]2018-07-08 00:12:00 Test Item Value Reference Range Interpretation Comments B/C Ratio (test code = B/C Ratio) 5 1 6-25 [facility]2018-07-08 00:12:00 Test Item Value Reference Range Interpretation Comments AGAP (test code = AGAP) 12.3 10.0-20.0 [facility]2018-07-08 00:12:00 Test Item Value Reference Range Interpretation Comments A/G Ratio (test code = A/G Ratio) 0.8 1 0.7-1.6 [facility]2018-07-08 00:12:00 Test Item Value Reference Range Interpretation Comments Globulin (test code = Globulin) 4.2 2.7-4.2 [facility]2018-07-08 00:12:00 Test Item Value Reference Range Interpretation Comments Chloride Lvl (test code = Chloride Lvl) 102 95-109 [facility]2018-07-08 00:12:00 Test Item Value Reference Range Interpretation Comments Potassium Lvl (test code = Potassium 3.3 3.5-5.1 Lvl) [facility] CentralSdskmqpXIZTMKKSIT9896-02-72 00:12:00 Test Item Value Reference Range Interpretation Comments WBC (test code = WBC) 5.0 3.7-10.4 [facility] CentralUkjbohyRFOLWLOFML8804-86-32 00:12:00 Test Item Value Reference Range Interpretation Comments RDW (test code = RDW) 17.6 11.5-14.5 [facility] CentralYrmwvcoMTCOGTSGWJ3952-03-35 00:12:00 Test Item Value Reference Range Interpretation Comments MCHC (test code = MCHC) 33.5 32.0-36.0 [facility] CentralZdhwodhXONIKDOBUC8656-58-88 00:12:00 Test Item Value Reference Range Interpretation Comments MPV (test code = MPV) 7.3 7.4-10.4 [facility] CentralLdeklrpOJBLJLULIY5333-82-95 00:12:00 Test Item Value Reference Range Interpretation Comments RBC (test code = RBC) 4.25 4.70-6.10 [facility] CentralVrqhrktXXPYXMQJUE6917-35-57 00:12:00 Test Item Value Reference Range Interpretation Comments MCH (test code = MCH) 26.0 pg 27.0-31.0 [facility] CentralOtjsjqmWDKEFJJTGR7107-60-62 00:12:00 Test Item Value Reference Range Interpretation Comments MCV (test code = MCV) 77.5 80.0-94.0 [facility] CentralWpnuxfjCEPKUHWZIR6693-55-59 00:12:00 Test Item Value Reference Range Interpretation Comments Hct (test code = Hct) 33.0 42.0-54.0 [facility] CentralOxnerbjOUAOJBVBGC7128-62-39 00:12:00 Test Item Value Reference Range Interpretation Comments Hgb (test code = Hgb) 11.1 14.0-18.0 [facility] CentralUsvbdqsETOFGLZXEJ8014-15-42 00:12:00 Test Item Value Reference Range Interpretation Comments Platelet (test code = Platelet) 208 133-450 [facility] CentralDirsrmeKQFLZUOUSV6337-95-89 00:12:00 Test Item Value Reference Range Interpretation Comments Segs-Bands # (test code = Segs-Bands #) 3.6 1.5-8.1 [facility] CentralIzndwxiICTKSEDHIT0866-88-36 00:12:00 Test Item Value Reference Range Interpretation Comments Lymphocytes # (test code = Lymphocytes 0.9 1.0-5.5 #) [facility] CentralHnvuxqjYMUOTUBZBB3936-04-76 00:12:00 Test Item Value Reference Range Interpretation Comments Basophils # (test code 0.1 See_Comment [Aut omated message] The = Basophils #) system which generated this result tra nsmitted reference range : <=0.2. The reference r yared was not used to int erpret this result as normal/abnormal . [facility] CentralAeuuarlHTZRIUYTIK2538-69-99 00:12:00 Test Item Value Reference Range Interpretation Comments Eosinophils # (test code 0.1 See_Comment [A utomated message] The = Eosinophils #) system whic h generated this result tra nsmitted reference range : <=0.5. The reference r yared was not used to int erpret this result as normal/abnormal . [facility] CentralJgthaapGQCLCIDBXA4222-02-70 00:12:00 Test Item Value Reference Range Interpretation Comments Monocytes # (test code 0.4 See_Comment [Aut omated message] The = Monocytes #) system which generated this result tra nsmitted reference range : <=0.8. The reference r yared was not used to int erpret this result as normal/abnormal . [facility] CentralScjtsxeXALSHKRHNX8301-39-48 00:12:00 Test Item Value Reference Range Interpretation Comments Basophils (test code = 1.0 See_Comment [Aut omated message] The Basophils) system which ge nerated this result tra nsmitted reference range : <=1.0. The reference r yared was not used to int erpret this result as normal/abnormal . [facility] CentralEualchlNJXPSERACO2123-59-91 00:12:00 Test Item Value Reference Range Interpretation Comments Eosinophils (test code = 2.0 See_Comment [A utomated message] The Eosinophils) system which ge nerated this result tra nsmitted reference range : <=4.0. The reference r yared was not used to int erpret this result as normal/abnormal . [facility] CentralSluqjvoXJDMYKRUCF0492-45-31 00:12:00 Test Item Value Reference Range Interpretation Comments Microcyte (test code = 1+ *ABN*(04/14/18 7:12 Microcyte) PM) [facility] CentralGhfzfoyOVQZUHDCJZ5693-51-18 00:12:00 Test Item Value Reference Range Interpretation Comments Plt Morph (test code = Normal (04/14/18 7:12 PM) Plt Morph) [facility] HospitalCzfhauaQAFVAZYLUR4474-42-41 00:12:00 Test Item Value Reference Range Interpretation Comments Lymphocytes (test code = Lymphocytes) 17.2 20.0-40.0 [facility] HospitalWepeamqDGILJFYXNO4905-96-50 00:12:00 Test Item Value Reference Range Interpretation Comments Segs (test code = Segs) 72.3 45.0-75.0 [facility] HospitalDevyonsWLHZYQHWGT5998-41-22 00:12:00 Test Item Value Reference Range Interpretation Comments Monocytes (test code = Monocytes) 7.5 2.0-12.0 [facility] HospitalWclybbjPTFUWSUPFI5865-77-07 12:10:00 Test Item Value Reference Range Interpretation Comments Vanco Lvl (test code = Vanco Lvl) 17.4 [facility]EpepojyJMCURJIANV9231-13-90 12:10:00 Test Item Value Reference Range Interpretation Comments Vanco Lvl (test code = Vanco Lvl) 17.4 [facility]KoyqjfrLCNYIEHWZC6078-80-17 12:10:00 Test Item Value Reference Range Interpretation Comments Vanco Lvl (test code = Vanco Lvl) 17.4 [facility] HospitalCHEM SKFQI8980-00-28 08:01:00 Test Item Value Reference Range Interpretation Comments Magnesium Lvl (test code = Magnesium 2.1 1.8-2.4 Lvl) [facility] HospitalCHEM QBHUF9671-70-14 08:01:00 Test Item Value Reference Range Interpretation Comments Phosphorus (test code = Phosphorus) 5.6 2.5-4.5 [facility]KeszldfDMTWAPGTTNDL4868-69-01 08:01:00 Test Item Value Reference Range Interpretation Comments AGAP (test code = AGAP) 17.3 10.0-20.0 [facility] HospitalSuvgwatTRIDYANJBWUC0982-03-15 08:01:00 Test Item Value Reference Range Interpretation Comments eGFR (test code = eGFR) 5 [facility] HospitalMduualdDBBWZJJDDVQH7346-13-20 08:01:00 Test Item Value Reference Range Interpretation Comments Chloride Lvl (test code = Chloride Lvl) 94 95-109 [facility] ServicesQmwyaezAIIWGRJCEAMD1838-57-15 08:01:00 Test Item Value Reference Range Interpretation Comments CO2 (test code = CO2) 24 24-32 [facility]NvfqpgwPAVSLDNKFZOT8520-13-05 08:01:00 Test Item Value Reference Range Interpretation Comments Calcium Lvl (test code = Calcium Lvl) 8.3 8.5-10.5 [facility] HospitalBgejgbbUDEKBDJISWKM2384-09-98 08:01:00 Test Item Value Reference Range Interpretation Comments Glucose Lvl (test code = Glucose Lvl) 120 70-99 [facility] HospitalPpyjvahICPQCEKMPBFK0786-80-86 08:01:00 Test Item Value Reference Range Interpretation Comments Potassium Lvl (test code = Potassium 4.3 3.5-5.1 Lvl) [facility] HospitalBtgzgjiMUPMYUBGPXYH5594-72-16 08:01:00 Test Item Value Reference Range Interpretation Comments Sodium Lvl (test code = Sodium Lvl) 131 135-145 [facility] HospitalZpfkapkSSKZRVAHOZWX7957-20-60 08:01:00 Test Item Value Reference Range Interpretation Comments BUN (test code = BUN) 55 7-22 [facility] HospitalKkqghyvRKEHQQMMFUPV6494-13-07 08:01:00 Test Item Value Reference Range Interpretation Comments Creatinine Lvl (test code = Creatinine 9.62 0.50-1.40 Lvl) [facility] CentralSkkhiqgWTAMWMTKJB5716-19-23 08:01:00 Test Item Value Reference Range Interpretation Comments Basophils (test code = 0.3 See_Comment [Aut omated message] The Basophils) system which ge nerated this result tra nsmitted reference range : <=1.0. The reference r yared was not used to int erpret this result as normal/abnormal . [facility] CentralLoihwbqTXDIAUHOZN0726-01-96 08:01:00 Test Item Value Reference Range Interpretation Comments Monocytes (test code = Monocytes) 10.9 2.0-12.0 [facility] CentralEgcbajcJZFENALMYF4875-80-72 08:01:00 Test Item Value Reference Range Interpretation Comments Segs (test code = Segs) 78.7 45.0-75.0 [facility] CentralRstuqmmTUCQFIETUR3703-18-55 08:01:00 Test Item Value Reference Range Interpretation Comments Lymphocytes (test code = Lymphocytes) 8.8 20.0-40.0 [facility] CentralCviecjiNRSSTGPHJX4218-42-71 08:01:00 Test Item Value Reference Range Interpretation Comments Eosinophils # (test code 0.1 See_Comment [A utomated message] The = Eosinophils #) system whic h generated this result tra nsmitted reference range : <=0.5. The reference r yared was not used to int erpret this result as normal/abnormal . [facility] CentralIajlvppSUTPZVJINX1335-80-47 08:01:00 Test Item Value Reference Range Interpretation Comments Monocytes # (test code 0.9 See_Comment [Aut omated message] The = Monocytes #) system which generated this result tra nsmitted reference range : <=0.8. The reference r yared was not used to int erpret this result as normal/abnormal . [facility] CentralCctywcpIKFDLXXGOY7483-49-41 08:01:00 Test Item Value Reference Range Interpretation Comments Eosinophils (test code = 1.3 See_Comment [A utomated message] The Eosinophils) system which ge nerated this result tra nsmitted reference range : <=4.0. The reference r yared was not used to int erpret this result as normal/abnormal . [facility]YtwimrqQCUYGTMZAB8065-25-34 08:01:00 Test Item Value Reference Range Interpretation Comments Microcyte (test code = 1+ *ABN*(03/19/18 Microcyte) 3:01 AM) [facility] CentralKkeybdvUXOWZDUVRU1228-08-79 08:01:00 Test Item Value Reference Range Interpretation Comments Segs-Bands # (test code = Segs-Bands #) 6.5 1.5-8.1 [facility] CentralUqrzufeVHHEOLQFCU3192-65-52 08:01:00 Test Item Value Reference Range Interpretation Comments Lymphocytes # (test code = Lymphocytes 0.7 1.0-5.5 #) [facility] CentralXzxkdteCFNYIZTBGC0045-88-25 08:01:00 Test Item Value Reference Range Interpretation Comments MPV (test code = MPV) 7.9 7.4-10.4 [facility] CentralPioflvnTMSDLJUGQD5024-91-43 08:01:00 Test Item Value Reference Range Interpretation Comments Platelet (test code = Platelet) 240 133-450 [facility] CentralAqhrchsEGIFCFFQOE9543-41-56 08:01:00 Test Item Value Reference Range Interpretation Comments MCH (test code = MCH) 26.4 pg 27.0-31.0 [facility] CentralHuanxfaIFEDEOZEAQ4480-13-85 08:01:00 Test Item Value Reference Range Interpretation Comments RDW (test code = RDW) 15.4 11.5-14.5 [facility] CentralBsawnivBMSRMXDHQX2790-29-11 08:01:00 Test Item Value Reference Range Interpretation Comments MCHC (test code = MCHC) 34.2 32.0-36.0 [facility] CentralJinflxrWUZJRXJCUP8800-15-59 08:01:00 Test Item Value Reference Range Interpretation Comments RBC (test code = RBC) 2.99 4.70-6.10 [facility] CentralXgjjkozQSXRTUNIIM2719-00-84 08:01:00 Test Item Value Reference Range Interpretation Comments WBC (test code = WBC) 8.2 3.7-10.4 [facility] CentralFeisskfAIFZDLAORZ0924-54-04 08:01:00 Test Item Value Reference Range Interpretation Comments Hct (test code = Hct) 23.1 42.0-54.0 [facility] CentralEixxfpfYDCCCQRAGX5547-22-94 08:01:00 Test Item Value Reference Range Interpretation Comments Hgb (test code = Hgb) 7.9 14.0-18.0 [facility] CentralRhhzefiGDVGKPVJHN2195-49-44 08:01:00 Test Item Value Reference Range Interpretation Comments MCV (test code = MCV) 77.1 80.0-94.0 [facility]2018-06-11 08:01:00 Test Item Value Reference Range Interpretation Comments Magnesium Lvl (test code = Magnesium 2.1 1.8-2.4 Lvl) [facility]2018-06-11 08:01:00 Test Item Value Reference Range Interpretation Comments Phosphorus (test code = Phosphorus) 5.6 2.5-4.5 [facility]IuvijqpIEZQNEZPOVFM8355-64-48 08:01:00 Test Item Value Reference Range Interpretation Comments AGAP (test code = AGAP) 17.3 10.0-20.0 [facility] HospitalPqcotldFDUVHBRUAEXI6991-73-09 08:01:00 Test Item Value Reference Range Interpretation Comments eGFR (test code = eGFR) 5 [facility] HospitalNuwsfvoAJJDRFTYYSQD4442-12-24 08:01:00 Test Item Value Reference Range Interpretation Comments Chloride Lvl (test code = Chloride Lvl) 94 95-109 [facility] HospitalLuljjmlPSJEOLYBJZES0544-63-28 08:01:00 Test Item Value Reference Range Interpretation Comments CO2 (test code = CO2) 24 24-32 [facility] HospitalMzjisvqHUONELUBABVB5841-26-97 08:01:00 Test Item Value Reference Range Interpretation Comments Calcium Lvl (test code = Calcium Lvl) 8.3 8.5-10.5 [facility] HospitalFgbovweTFQQMQUYMQEF6910-76-57 08:01:00 Test Item Value Reference Range Interpretation Comments Glucose Lvl (test code = Glucose Lvl) 120 70-99 [facility] HospitalDbjmhtqRWVFWLMDZYSJ6460-41-75 08:01:00 Test Item Value Reference Range Interpretation Comments Potassium Lvl (test code = Potassium 4.3 3.5-5.1 Lvl) [facility] HospitalDneabyfVSIFVVHPCOTT0720-59-57 08:01:00 Test Item Value Reference Range Interpretation Comments Sodium Lvl (test code = Sodium Lvl) 131 135-145 [facility] HospitalOfbwviaKVZARWTSKAOF1724-22-15 08:01:00 Test Item Value Reference Range Interpretation Comments BUN (test code = BUN) 55 7-22 [facility] HospitalHnlqotmZDTOMAATDVZL4866-38-61 08:01:00 Test Item Value Reference Range Interpretation Comments Creatinine Lvl (test code = Creatinine 9.62 0.50-1.40 Lvl) [facility] CentralBqjesjmVRPNJXZRCO4214-36-09 08:01:00 Test Item Value Reference Range Interpretation Comments Basophils (test code = 0.3 See_Comment [Aut omated message] The Basophils) system which ge nerated this result tra nsmitted reference range : <=1.0. The reference r yared was not used to int erpret this result as normal/abnormal . [facility] CentralSasvbjgOCZJQWRCSQ5504-14-13 08:01:00 Test Item Value Reference Range Interpretation Comments Monocytes (test code = Monocytes) 10.9 2.0-12.0 [facility] CentralWojfgfqQFUGUHPZIS5225-93-83 08:01:00 Test Item Value Reference Range Interpretation Comments Segs (test code = Segs) 78.7 45.0-75.0 [facility] CentralBxktrmvVEPDNVJTMT6196-36-28 08:01:00 Test Item Value Reference Range Interpretation Comments Lymphocytes (test code = Lymphocytes) 8.8 20.0-40.0 [facility] CentralJuktehePKGWBHDYCK2627-57-91 08:01:00 Test Item Value Reference Range Interpretation Comments Eosinophils # (test code 0.1 See_Comment [A utomated message] The = Eosinophils #) system whic h generated this result tra nsmitted reference range : <=0.5. The reference r yared was not used to int erpret this result as normal/abnormal . [facility] CentralBuinfouZPOWGBSVAS8769-20-70 08:01:00 Test Item Value Reference Range Interpretation Comments Monocytes # (test code 0.9 See_Comment [Aut omated message] The = Monocytes #) system which generated this result tra nsmitted reference range : <=0.8. The reference r yared was not used to int erpret this result as normal/abnormal . [facility] CentralFkyqtzlLGBESTHZCO9973-05-46 08:01:00 Test Item Value Reference Range Interpretation Comments Eosinophils (test code = 1.3 See_Comment [A utomated message] The Eosinophils) system which ge nerated this result tra nsmitted reference range : <=4.0. The reference r yared was not used to int erpret this result as normal/abnormal . [facility] CentralFderbbwXWCOTSKPUJ7738-45-32 08:01:00 Test Item Value Reference Range Interpretation Comments Microcyte (test code = 1+ *ABN*(03/19/18 Microcyte) 3:01 AM) [facility] CentralSonageaUORUNHEXBW8399-85-50 08:01:00 Test Item Value Reference Range Interpretation Comments Segs-Bands # (test code = Segs-Bands #) 6.5 1.5-8.1 [facility] CentralIscmarySWUATRXJUH0531-33-11 08:01:00 Test Item Value Reference Range Interpretation Comments Lymphocytes # (test code = Lymphocytes 0.7 1.0-5.5 #) [facility] CentralDvmruzfOFKRETOYXQ0990-92-04 08:01:00 Test Item Value Reference Range Interpretation Comments MPV (test code = MPV) 7.9 7.4-10.4 [facility] CentralEcjtfulVPTKSWGNVL8870-33-20 08:01:00 Test Item Value Reference Range Interpretation Comments Platelet (test code = Platelet) 240 133-450 [facility] CentralTogeoodYWJVYRHREQ5717-88-83 08:01:00 Test Item Value Reference Range Interpretation Comments MCH (test code = MCH) 26.4 pg 27.0-31.0 [facility] CentralVdbvkhlHKZWJVHKOA7086-85-58 08:01:00 Test Item Value Reference Range Interpretation Comments RDW (test code = RDW) 15.4 11.5-14.5 [facility] CentralZheescjLXOFASASSW8288-64-06 08:01:00 Test Item Value Reference Range Interpretation Comments MCHC (test code = MCHC) 34.2 32.0-36.0 [facility] CentralXfpaoniNYXUHKIGGP7114-20-24 08:01:00 Test Item Value Reference Range Interpretation Comments RBC (test code = RBC) 2.99 4.70-6.10 [facility] CentralYskqlsyKLEGZBXMWI2163-74-83 08:01:00 Test Item Value Reference Range Interpretation Comments WBC (test code = WBC) 8.2 3.7-10.4 [facility] CentralFibsfgfYHOZIAXNRM7788-17-06 08:01:00 Test Item Value Reference Range Interpretation Comments Hct (test code = Hct) 23.1 42.0-54.0 [facility] CentralWhmvtmhTDHMRZGLFB4203-03-57 08:01:00 Test Item Value Reference Range Interpretation Comments Hgb (test code = Hgb) 7.9 14.0-18.0 [facility] CentralLqbdmrkZOPOADSDTQ6086-73-55 08:01:00 Test Item Value Reference Range Interpretation Comments MCV (test code = MCV) 77.1 80.0-94.0 [facility]2018-06-11 08:01:00 Test Item Value Reference Range Interpretation Comments Magnesium Lvl (test code = Magnesium 2.1 1.8-2.4 Lvl) [facility]2018-06-11 08:01:00 Test Item Value Reference Range Interpretation Comments Phosphorus (test code = Phosphorus) 5.6 2.5-4.5 [facility] HospitalPzbfmucQYMQQODOFPFA4076-92-82 08:01:00 Test Item Value Reference Range Interpretation Comments AGAP (test code = AGAP) 17.3 10.0-20.0 [facility] HospitalBhhyxifWGUOWGQRZNLC4013-90-97 08:01:00 Test Item Value Reference Range Interpretation Comments eGFR (test code = eGFR) 5 [facility] HospitalNgrecbrOIMSTQHCRNLL3913-83-95 08:01:00 Test Item Value Reference Range Interpretation Comments Chloride Lvl (test code = Chloride Lvl) 94 95-109 [facility] HospitalFkwttviSHUGEGXUEKSU6099-06-76 08:01:00 Test Item Value Reference Range Interpretation Comments CO2 (test code = CO2) 24 24-32 [facility] HospitalCmtnqzdUAVIMUEXWNEP1551-33-76 08:01:00 Test Item Value Reference Range Interpretation Comments Calcium Lvl (test code = Calcium Lvl) 8.3 8.5-10.5 [facility] HospitalBlhujdpKRJNLRYSDSVC8286-92-10 08:01:00 Test Item Value Reference Range Interpretation Comments Glucose Lvl (test code = Glucose Lvl) 120 70-99 [facility] HospitalLlbgpseUFVWAAXAAHWS4173-26-96 08:01:00 Test Item Value Reference Range Interpretation Comments Potassium Lvl (test code = Potassium 4.3 3.5-5.1 Lvl) [facility] HospitalNkupnpyGICUBWJPZSQN9605-51-55 08:01:00 Test Item Value Reference Range Interpretation Comments Sodium Lvl (test code = Sodium Lvl) 131 135-145 [facility] HospitalVraqkqbTYYVDPJZIERR5703-25-36 08:01:00 Test Item Value Reference Range Interpretation Comments BUN (test code = BUN) 55 7-22 [facility] HospitalXdhiiuuZBZFWKOVSVNA7577-92-25 08:01:00 Test Item Value Reference Range Interpretation Comments Creatinine Lvl (test code = Creatinine 9.62 0.50-1.40 Lvl) [facility] CentralIhtfmwzCCQDEMBPVX6704-26-78 08:01:00 Test Item Value Reference Range Interpretation Comments Basophils (test code = 0.3 See_Comment [Aut omated message] The Basophils) system which ge nerated this result tra nsmitted reference range : <=1.0. The reference r yared was not used to int erpret this result as normal/abnormal . [facility] CentralCkwcxttTZTWBQWFMW1261-40-81 08:01:00 Test Item Value Reference Range Interpretation Comments Monocytes (test code = Monocytes) 10.9 2.0-12.0 [facility] CentralYstsigfABVECTWMBN9070-43-83 08:01:00 Test Item Value Reference Range Interpretation Comments Segs (test code = Segs) 78.7 45.0-75.0 [facility] CentralLoxooyiALOTZIZRZD7612-54-90 08:01:00 Test Item Value Reference Range Interpretation Comments Lymphocytes (test code = Lymphocytes) 8.8 20.0-40.0 [facility] CentralLvbysjpMBBEHCGDHO9495-28-57 08:01:00 Test Item Value Reference Range Interpretation Comments Eosinophils # (test code 0.1 See_Comment [A utomated message] The = Eosinophils #) system whic h generated this result tra nsmitted reference range : <=0.5. The reference r yared was not used to int erpret this result as normal/abnormal . [facility] CentralMljtxsiJTKLLJFZIE1872-71-65 08:01:00 Test Item Value Reference Range Interpretation Comments Monocytes # (test code 0.9 See_Comment [Aut omated message] The = Monocytes #) system which generated this result tra nsmitted reference range : <=0.8. The reference r yared was not used to int erpret this result as normal/abnormal . [facility] CentralCwhmcvoOKNWBGUSTX0795-94-39 08:01:00 Test Item Value Reference Range Interpretation Comments Eosinophils (test code = 1.3 See_Comment [A utomated message] The Eosinophils) system which ge nerated this result tra nsmitted reference range : <=4.0. The reference r yared was not used to int erpret this result as normal/abnormal . [facility] CentralQlubdjlDXWZJDIKQZ1346-31-35 08:01:00 Test Item Value Reference Range Interpretation Comments Microcyte (test code = 1+ *ABN*(03/19/18 Microcyte) 3:01 AM) [facility] CentralDqjthqkTIDMFYVXEV7867-38-40 08:01:00 Test Item Value Reference Range Interpretation Comments Segs-Bands # (test code = Segs-Bands #) 6.5 1.5-8.1 [facility] CentralYmxzbqjLWOJVBSDKK0116-71-02 08:01:00 Test Item Value Reference Range Interpretation Comments Lymphocytes # (test code = Lymphocytes 0.7 1.0-5.5 #) [facility] CentralTawnfucSXXNPULAVV0730-34-36 08:01:00 Test Item Value Reference Range Interpretation Comments MPV (test code = MPV) 7.9 7.4-10.4 [facility] CentralHszmzfzIMROLFBXOP4109-90-50 08:01:00 Test Item Value Reference Range Interpretation Comments Platelet (test code = Platelet) 240 133-450 [facility] CentralZgcgqcgIQBCFNXHMU5296-49-16 08:01:00 Test Item Value Reference Range Interpretation Comments MCH (test code = MCH) 26.4 pg 27.0-31.0 [facility] CentralHxcivsbIHCOZTEQXP9975-04-27 08:01:00 Test Item Value Reference Range Interpretation Comments RDW (test code = RDW) 15.4 11.5-14.5 [facility] CentralNqzkysjUIOMRDHMOJ1888-90-73 08:01:00 Test Item Value Reference Range Interpretation Comments MCHC (test code = MCHC) 34.2 32.0-36.0 [facility] CentralMayfzqlCCZJYGYIHO4805-28-37 08:01:00 Test Item Value Reference Range Interpretation Comments RBC (test code = RBC) 2.99 4.70-6.10 [facility] CentralOlqxkomAHLIUAQJKK2249-68-66 08:01:00 Test Item Value Reference Range Interpretation Comments WBC (test code = WBC) 8.2 3.7-10.4 [facility] CentralKfpraayBRAYSSKDFZ6378-83-77 08:01:00 Test Item Value Reference Range Interpretation Comments Hct (test code = Hct) 23.1 42.0-54.0 [facility] CentralXrarnqfENJIURRQWP9959-04-14 08:01:00 Test Item Value Reference Range Interpretation Comments Hgb (test code = Hgb) 7.9 14.0-18.0 [facility] CentralCicjqnqEPAPRZFAAT1874-56-83 08:01:00 Test Item Value Reference Range Interpretation Comments MCV (test code = MCV) 77.1 80.0-94.0 [facility]2018-06-10 08:29:00 Test Item Value Reference Range Interpretation Comments Magnesium Lvl (test code = Magnesium 2.3 1.8-2.4 Lvl) [facility]2018-06-10 08:29:00 Test Item Value Reference Range Interpretation Comments eGFR (test code = eGFR) 6 [facility]2018-06-10 08:29:00 Test Item Value Reference Range Interpretation Comments Bili Total (test code = Bili Total) 0.4 0.2-1.3 [facility]2018-06-10 08:29:00 Test Item Value Reference Range Interpretation Comments Potassium Lvl (test code = Potassium 4.0 3.5-5.1 Lvl) [facility]2018-06-10 08:29:00 Test Item Value Reference Range Interpretation Comments Glucose Lvl (test code = Glucose Lvl) 105 70-99 [facility]2018-06-10 08:29:00 Test Item Value Reference Range Interpretation Comments BUN (test code = BUN) 50 7-22 [facility]2018-06-10 08:29:00 Test Item Value Reference Range Interpretation Comments Sodium Lvl (test code = Sodium Lvl) 133 135-145 [facility]2018-06-10 08:29:00 Test Item Value Reference Range Interpretation Comments Creatinine Lvl (test code = Creatinine 8.40 0.50-1.40 Lvl) [facility]2018-06-10 08:29:00 Test Item Value Reference Range Interpretation Comments Chloride Lvl (test code = Chloride Lvl) 97 95-109 [facility]2018-06-10 08:29:00 Test Item Value Reference Range Interpretation Comments Alk Phos (test code = Alk Phos) 104 39-136 [facility]2018-06-10 08:29:00 Test Item Value Reference Range Interpretation Comments Albumin Lvl (test code = Albumin Lvl) 2.7 3.5-5.0 [facility]2018-06-10 08:29:00 Test Item Value Reference Range Interpretation Comments Total Protein (test code = Total 6.9 6.4-8.4 Protein) [facility]2018-06-10 08:29:00 Test Item Value Reference Range Interpretation Comments Calcium Lvl (test code = Calcium Lvl) 8.0 8.5-10.5 [facility]2018-06-10 08:29:00 Test Item Value Reference Range Interpretation Comments CO2 (test code = CO2) 26 24-32 [facility]2018-06-10 08:29:00 Test Item Value Reference Range Interpretation Comments AST (test code = AST) 9 See_Comment [Auto mated message] The system which ge nerated this result transmit emerson reference range : <=37. The reference range was not used to interpr et this result as erinn l/abnormal. [facility]2018-06-10 08:29:00 Test Item Value Reference Range Interpretation Comments ALT (test code = ALT) 12 See_Comment [Auto mated message] The system which ge nerated this result transmit emerson reference range : <=65. The reference range was not used to interpr et this result as erinn l/abnormal. [facility]2018-06-10 08:29:00 Test Item Value Reference Range Interpretation Comments B/C Ratio (test code = B/C Ratio) 6 1 6-25 [place] 597388-06-10 08:29:00 Test Item Value Reference Range Interpretation Comments AGAP (test code = AGAP) 14.0 10.0-20.0 [facility]2018-06-10 08:29:00 Test Item Value Reference Range Interpretation Comments Globulin (test code = Globulin) 4.2 2.7-4.2 [facility] PZOCE3033-01-90 08:29:00 Test Item Value Reference Range Interpretation Comments A/G Ratio (test code = A/G Ratio) 0.6 1 0.7-1.6 [facility] GZKAN1600-79-60 08:29:00 Test Item Value Reference Range Interpretation Comments Phosphorus (test code = Phosphorus) 5.7 2.5-4.5 [facility] CentralBxbfcwoJUDLAYBGLG4815-06-87 08:29:00 Test Item Value Reference Range Interpretation Comments INR (test code = INR) 1.23 1 0.85-1.17 [facility] CentralYhrcoybIALZWPWZCF2532-19-49 08:29:00 Test Item Value Reference Range Interpretation Comments PTT (test code = PTT) 42.0 s 22.9-35.8 [facility] CentralWjypirnIKAALPEMHM4297-06-98 08:29:00 Test Item Value Reference Range Interpretation Comments PT (test code = PT) 15.6 s 12.0-14.7 [facility] CentralTmasxznMFYRDOLGGS1087-07-77 08:29:00 Test Item Value Reference Range Interpretation Comments Microcyte (test code = 1+ *ABN*(03/18/18 Microcyte) 3:29 AM) [facility] CentralOcuejidCGSHTLSBGC3985-43-19 08:29:00 Test Item Value Reference Range Interpretation Comments Monocytes # (test code 1.0 See_Comment [Aut omated message] The = Monocytes #) system which generated this result tra nsmitted reference range : <=0.8. The reference r yared was not used to int erpret this result as normal/abnormal . [facility] CentralWkkqtrxCULWYIEFAP4518-07-74 08:29:00 Test Item Value Reference Range Interpretation Comments Eosinophils # (test code 0.1 See_Comment [A utomated message] The = Eosinophils #) system whic h generated this result tra nsmitted reference range : <=0.5. The reference r yared was not used to int erpret this result as normal/abnormal . [facility] CentralDjzvumsIYSEWHGLHK7339-86-86 08:29:00 Test Item Value Reference Range Interpretation Comments Lymphocytes # (test code = Lymphocytes 0.9 1.0-5.5 #) [facility] CentralGmgawtdAWTHXXXLXZ2817-97-76 08:29:00 Test Item Value Reference Range Interpretation Comments Segs-Bands # (test code = Segs-Bands #) 5.0 1.5-8.1 [facility] CentralUmzbcohVXHJCXMKHJ3841-29-96 08:29:00 Test Item Value Reference Range Interpretation Comments Eosinophils (test code = 1.6 See_Comment [A utomated message] The Eosinophils) system which ge nerated this result tra nsmitted reference range : <=4.0. The reference r yared was not used to int erpret this result as normal/abnormal . [facility] CentralHjqlubkEDTLMVMMVB5199-59-90 08:29:00 Test Item Value Reference Range Interpretation Comments Lymphocytes (test code = Lymphocytes) 13.3 20.0-40.0 [facility] CentralQhpduyjUIKTBUSKKI5692-94-58 08:29:00 Test Item Value Reference Range Interpretation Comments Basophils (test code = 0.5 See_Comment [Aut omated message] The Basophils) system which ge nerated this result tra nsmitted reference range : <=1.0. The reference r yared was not used to int erpret this result as normal/abnormal . [facility] CentralHqqufurHEEFYUFYUK0312-79-60 08:29:00 Test Item Value Reference Range Interpretation Comments Monocytes (test code = Monocytes) 13.9 2.0-12.0 [facility] CentralJlixejzZBJAPOPCQD3862-05-30 08:29:00 Test Item Value Reference Range Interpretation Comments Segs (test code = Segs) 70.7 45.0-75.0 [facility] CentralLecccjxCJPXAWJLXN4424-18-34 08:29:00 Test Item Value Reference Range Interpretation Comments Platelet (test code = Platelet) 217 133-450 [facility] CentralYfelsgxZZWBKZUMUL8412-25-12 08:29:00 Test Item Value Reference Range Interpretation Comments MPV (test code = MPV) 7.9 7.4-10.4 [facility] CentralSiqtkwfTDMAMTZHVQ3106-60-19 08:29:00 Test Item Value Reference Range Interpretation Comments MCHC (test code = MCHC) 33.8 32.0-36.0 [facility] CentralKecqnknMNNYLYLELF8416-04-52 08:29:00 Test Item Value Reference Range Interpretation Comments RDW (test code = RDW) 15.0 11.5-14.5 [facility] CentralSxflunrUQURVYJKDY8667-25-13 08:29:00 Test Item Value Reference Range Interpretation Comments Hct (test code = Hct) 21.8 42.0-54.0 [facility] CentralVqwqhdoHMXOBWDDIK5601-61-71 08:29:00 Test Item Value Reference Range Interpretation Comments MCV (test code = MCV) 77.9 80.0-94.0 [facility] CentralIllxgqaZKWUXNHTKP6772-36-76 08:29:00 Test Item Value Reference Range Interpretation Comments MCH (test code = MCH) 26.3 pg 27.0-31.0 [facility] CentralQhcmzifUDFCZVLTTK1136-57-21 08:29:00 Test Item Value Reference Range Interpretation Comments RBC (test code = RBC) 2.80 4.70-6.10 [facility] CentralXdmaupnQQEZWDLHVC0662-77-13 08:29:00 Test Item Value Reference Range Interpretation Comments Hgb (test code = Hgb) 7.4 14.0-18.0 [facility] CentralOtbspkkBPGADNSIKP3943-78-76 08:29:00 Test Item Value Reference Range Interpretation Comments WBC (test code = WBC) 7.1 3.7-10.4 [facility]2018-06-10 08:29:00 Test Item Value Reference Range Interpretation Comments Magnesium Lvl (test code = Magnesium 2.3 1.8-2.4 Lvl) [facility]2018-06-10 08:29:00 Test Item Value Reference Range Interpretation Comments eGFR (test code = eGFR) 6 [facility]2018-06-10 08:29:00 Test Item Value Reference Range Interpretation Comments Bili Total (test code = Bili Total) 0.4 0.2-1.3 [facility]2018-06-10 08:29:00 Test Item Value Reference Range Interpretation Comments Potassium Lvl (test code = Potassium 4.0 3.5-5.1 Lvl) [facility]2018-06-10 08:29:00 Test Item Value Reference Range Interpretation Comments Glucose Lvl (test code = Glucose Lvl) 105 70-99 [facility]2018-06-10 08:29:00 Test Item Value Reference Range Interpretation Comments BUN (test code = BUN) 50 7-22 [facility]2018-06-10 08:29:00 Test Item Value Reference Range Interpretation Comments Sodium Lvl (test code = Sodium Lvl) 133 135-145 [place] [id number] 08:29:00 Test Item Value Reference Range Interpretation Comments Creatinine Lvl (test code = Creatinine 8.40 0.50-1.40 Lvl) [facility]2018-06-10 08:29:00 Test Item Value Reference Range Interpretation Comments Chloride Lvl (test code = Chloride Lvl) 97 95-109 [facility]2018-06-10 08:29:00 Test Item Value Reference Range Interpretation Comments Alk Phos (test code = Alk Phos) 104 39-136 [facility]2018-06-10 08:29:00 Test Item Value Reference Range Interpretation Comments Albumin Lvl (test code = Albumin Lvl) 2.7 3.5-5.0 [place] 597388-06-10 08:29:00 Test Item Value Reference Range Interpretation Comments Total Protein (test code = Total 6.9 6.4-8.4 Protein) [facility]2018-06-10 08:29:00 Test Item Value Reference Range Interpretation Comments Calcium Lvl (test code = Calcium Lvl) 8.0 8.5-10.5 [place] 597388-06-10 08:29:00 Test Item Value Reference Range Interpretation Comments CO2 (test code = CO2) 26 24-32 [facility]2018-06-10 08:29:00 Test Item Value Reference Range Interpretation Comments AST (test code = AST) 9 See_Comment [Auto mated message] The system which ge nerated this result transmit emerson reference range : <=37. The reference range was not used to interpr et this result as erinn l/abnormal. [facility]2018-06-10 08:29:00 Test Item Value Reference Range Interpretation Comments ALT (test code = ALT) 12 See_Comment [Auto mated message] The system which ge nerated this result transmit emerson reference range : <=65. The reference range was not used to interpr et this result as erinn l/abnormal. [facility]2018-06-10 08:29:00 Test Item Value Reference Range Interpretation Comments B/C Ratio (test code = B/C Ratio) 6 1 6-25 [place] 597388-06-10 08:29:00 Test Item Value Reference Range Interpretation Comments AGAP (test code = AGAP) 14.0 10.0-20.0 [facility]2018-06-10 08:29:00 Test Item Value Reference Range Interpretation Comments Globulin (test code = Globulin) 4.2 2.7-4.2 [facility]2018-06-10 08:29:00 Test Item Value Reference Range Interpretation Comments A/G Ratio (test code = A/G Ratio) 0.6 1 0.7-1.6 [facility]2018-06-10 08:29:00 Test Item Value Reference Range Interpretation Comments Phosphorus (test code = Phosphorus) 5.7 2.5-4.5 [facility]ypazbsERCMLOCIPX2379-84-70 08:29:00 Test Item Value Reference Range Interpretation Comments INR (test code = INR) 1.23 1 0.85-1.17 [facility] CentralWpiqpokUXKSNNKUTR9166-08-88 08:29:00 Test Item Value Reference Range Interpretation Comments PTT (test code = PTT) 42.0 s 22.9-35.8 [facility] CentralJfqxdkrDYPWERFFJM2164-61-45 08:29:00 Test Item Value Reference Range Interpretation Comments PT (test code = PT) 15.6 s 12.0-14.7 [facility] CentralTwjqeobGMYKTIGBTR2000-76-44 08:29:00 Test Item Value Reference Range Interpretation Comments Microcyte (test code = 1+ *ABN*(03/18/18 Microcyte) 3:29 AM) [facility] CentralUlixhclOFMLAWQHUI6562-69-81 08:29:00 Test Item Value Reference Range Interpretation Comments Monocytes # (test code 1.0 See_Comment [Aut omated message] The = Monocytes #) system which generated this result tra nsmitted reference range : <=0.8. The reference r yared was not used to int erpret this result as normal/abnormal . [facility] CentralQtwlnplAZDDIDHQZB8855-03-39 08:29:00 Test Item Value Reference Range Interpretation Comments Eosinophils # (test code 0.1 See_Comment [A utomated message] The = Eosinophils #) system whic h generated this result tra nsmitted reference range : <=0.5. The reference r yared was not used to int erpret this result as normal/abnormal . [facility] CentralJdvxyamHCSKZVVIKB2640-41-29 08:29:00 Test Item Value Reference Range Interpretation Comments Lymphocytes # (test code = Lymphocytes 0.9 1.0-5.5 #) [facility] CentralPlywdaaGMYKJGKVPW3853-67-05 08:29:00 Test Item Value Reference Range Interpretation Comments Segs-Bands # (test code = Segs-Bands #) 5.0 1.5-8.1 [facility] CentralCwjdbidWAMDEWVTHR0798-41-60 08:29:00 Test Item Value Reference Range Interpretation Comments Eosinophils (test code = 1.6 See_Comment [A utomated message] The Eosinophils) system which ge nerated this result tra nsmitted reference range : <=4.0. The reference r yared was not used to int erpret this result as normal/abnormal . [facility] CentralXrxgrskSTELFBFOLY9811-93-09 08:29:00 Test Item Value Reference Range Interpretation Comments Lymphocytes (test code = Lymphocytes) 13.3 20.0-40.0 [facility] CentralPintwptZOIOJPIAON6379-61-82 08:29:00 Test Item Value Reference Range Interpretation Comments Basophils (test code = 0.5 See_Comment [Aut omated message] The Basophils) system which ge nerated this result tra nsmitted reference range : <=1.0. The reference r yared was not used to int erpret this result as normal/abnormal . [facility] CentralCydxtmgVZFQWDQLYW4341-01-34 08:29:00 Test Item Value Reference Range Interpretation Comments Monocytes (test code = Monocytes) 13.9 2.0-12.0 [facility] CentralGdabsrfWFHVVHDYPO9649-40-77 08:29:00 Test Item Value Reference Range Interpretation Comments Segs (test code = Segs) 70.7 45.0-75.0 [facility] CentralEpewvwnBPDTPAULZE4070-40-03 08:29:00 Test Item Value Reference Range Interpretation Comments Platelet (test code = Platelet) 217 133-450 [facility] CentralWlwbsipJIPBRFUURI8472-31-27 08:29:00 Test Item Value Reference Range Interpretation Comments MPV (test code = MPV) 7.9 7.4-10.4 [facility] CentralQyxbaqdBGMHHQUFPP5642-12-97 08:29:00 Test Item Value Reference Range Interpretation Comments MCHC (test code = MCHC) 33.8 32.0-36.0 [facility] CentralHcwbtqsWDEUYOKJFZ2658-78-98 08:29:00 Test Item Value Reference Range Interpretation Comments RDW (test code = RDW) 15.0 11.5-14.5 [facility] CentralKpmnedpTCNXUBMMCO4154-87-44 08:29:00 Test Item Value Reference Range Interpretation Comments Hct (test code = Hct) 21.8 42.0-54.0 [facility] CentralEuhkqlsEOZSEYZDIS2318-20-20 08:29:00 Test Item Value Reference Range Interpretation Comments MCV (test code = MCV) 77.9 80.0-94.0 [facility] CentralMmqosheUQMTOWMFBE7870-63-85 08:29:00 Test Item Value Reference Range Interpretation Comments MCH (test code = MCH) 26.3 pg 27.0-31.0 [facility] CentralNanxqqoZOSZHUENID4690-03-00 08:29:00 Test Item Value Reference Range Interpretation Comments RBC (test code = RBC) 2.80 4.70-6.10 [facility] CentralFhaucmmNNIUGVMRQI3310-48-14 08:29:00 Test Item Value Reference Range Interpretation Comments Hgb (test code = Hgb) 7.4 14.0-18.0 [facility] CentralTnroehaJZZEACGYWG1782-28-67 08:29:00 Test Item Value Reference Range Interpretation Comments WBC (test code = WBC) 7.1 3.7-10.4 [facility]2018-06-10 08:29:00 Test Item Value Reference Range Interpretation Comments Magnesium Lvl (test code = Magnesium 2.3 1.8-2.4 Lvl) [facility]2018-06-10 08:29:00 Test Item Value Reference Range Interpretation Comments eGFR (test code = eGFR) 6 [facility]2018-06-10 08:29:00 Test Item Value Reference Range Interpretation Comments Bili Total (test code = Bili Total) 0.4 0.2-1.3 [facility]2018-06-10 08:29:00 Test Item Value Reference Range Interpretation Comments Potassium Lvl (test code = Potassium 4.0 3.5-5.1 Lvl) [facility]2018-06-10 08:29:00 Test Item Value Reference Range Interpretation Comments Glucose Lvl (test code = Glucose Lvl) 105 70-99 [facility]2018-06-10 08:29:00 Test Item Value Reference Range Interpretation Comments BUN (test code = BUN) 50 7-22 [facility]2018-06-10 08:29:00 Test Item Value Reference Range Interpretation Comments Sodium Lvl (test code = Sodium Lvl) 133 135-145 [facility]2018-06-10 08:29:00 Test Item Value Reference Range Interpretation Comments Creatinine Lvl (test code = Creatinine 8.40 0.50-1.40 Lvl) [facility]2018-06-10 08:29:00 Test Item Value Reference Range Interpretation Comments Chloride Lvl (test code = Chloride Lvl) 97 95-109 [facility]2018-06-10 08:29:00 Test Item Value Reference Range Interpretation Comments Alk Phos (test code = Alk Phos) 104 39-136 [facility]2018-06-10 08:29:00 Test Item Value Reference Range Interpretation Comments Albumin Lvl (test code = Albumin Lvl) 2.7 3.5-5.0 [place] 597388-06-10 08:29:00 Test Item Value Reference Range Interpretation Comments Total Protein (test code = Total 6.9 6.4-8.4 Protein) [facility]2018-06-10 08:29:00 Test Item Value Reference Range Interpretation Comments Calcium Lvl (test code = Calcium Lvl) 8.0 8.5-10.5 [facility]2018-06-10 08:29:00 Test Item Value Reference Range Interpretation Comments CO2 (test code = CO2) 26 24-32 [facility]2018-06-10 08:29:00 Test Item Value Reference Range Interpretation Comments AST (test code = AST) 9 See_Comment [Auto mated message] The system which ge nerated this result transmit emerson reference range : <=37. The reference range was not used to interpr et this result as erinn l/abnormal. [facility]2018-06-10 08:29:00 Test Item Value Reference Range Interpretation Comments ALT (test code = ALT) 12 See_Comment [Auto mated message] The system which ge nerated this result transmit emerson reference range : <=65. The reference range was not used to interpr et this result as erinn l/abnormal. [facility]2018-06-10 08:29:00 Test Item Value Reference Range Interpretation Comments B/C Ratio (test code = B/C Ratio) 6 1 6-25 [facility]2018-06-10 08:29:00 Test Item Value Reference Range Interpretation Comments AGAP (test code = AGAP) 14.0 10.0-20.0 [facility]2018-06-10 08:29:00 Test Item Value Reference Range Interpretation Comments Globulin (test code = Globulin) 4.2 2.7-4.2 [facility]2018-06-10 08:29:00 Test Item Value Reference Range Interpretation Comments A/G Ratio (test code = A/G Ratio) 0.6 1 0.7-1.6 [facility]2018-06-10 08:29:00 Test Item Value Reference Range Interpretation Comments Phosphorus (test code = Phosphorus) 5.7 2.5-4.5 [facility] CentralXfblqgkRCESLLQKIL0786-47-42 08:29:00 Test Item Value Reference Range Interpretation Comments INR (test code = INR) 1.23 1 0.85-1.17 [facility] CentralQtvebqoGPBMVQOUTS7252-38-77 08:29:00 Test Item Value Reference Range Interpretation Comments PTT (test code = PTT) 42.0 s 22.9-35.8 [facility] CentralZwxuxizSWRPNHLGNN5232-44-50 08:29:00 Test Item Value Reference Range Interpretation Comments PT (test code = PT) 15.6 s 12.0-14.7 [facility] CentralQpnqqyxUMUDUNSWIS4293-33-51 08:29:00 Test Item Value Reference Range Interpretation Comments Microcyte (test code = 1+ *ABN*(03/18/18 Microcyte) 3:29 AM) [facility] CentralLzhcxrmTYGTLNRZEC9264-36-65 08:29:00 Test Item Value Reference Range Interpretation Comments Monocytes # (test code 1.0 See_Comment [Aut omated message] The = Monocytes #) system which generated this result tra nsmitted reference range : <=0.8. The reference r yared was not used to int erpret this result as normal/abnormal . [facility] CentralVzdkhmnCCUHCSSRDH4070-88-48 08:29:00 Test Item Value Reference Range Interpretation Comments Eosinophils # (test code 0.1 See_Comment [A utomated message] The = Eosinophils #) system whic h generated this result tra nsmitted reference range : <=0.5. The reference r yared was not used to int erpret this result as normal/abnormal . [facility] CentralFtqqemzQYWDRGEHFV6133-24-68 08:29:00 Test Item Value Reference Range Interpretation Comments Lymphocytes # (test code = Lymphocytes 0.9 1.0-5.5 #) [facility] CentralXvgusawMBPFUEOKNN1409-39-35 08:29:00 Test Item Value Reference Range Interpretation Comments Segs-Bands # (test code = Segs-Bands #) 5.0 1.5-8.1 [facility] CentralNnxqtbcBVPONVSGSF5151-73-93 08:29:00 Test Item Value Reference Range Interpretation Comments Eosinophils (test code = 1.6 See_Comment [A utomated message] The Eosinophils) system which ge nerated this result tra nsmitted reference range : <=4.0. The reference r yared was not used to int erpret this result as normal/abnormal . [facility] CentralEfmrtunHELYIYMDEN0582-09-13 08:29:00 Test Item Value Reference Range Interpretation Comments Lymphocytes (test code = Lymphocytes) 13.3 20.0-40.0 [facility] CentralKdaquoxYUGZSYWQQS3394-77-74 08:29:00 Test Item Value Reference Range Interpretation Comments Basophils (test code = 0.5 See_Comment [Aut omated message] The Basophils) system which ge nerated this result tra nsmitted reference range : <=1.0. The reference r yared was not used to int erpret this result as normal/abnormal . [facility] CentralZekbbopEROQZJHVOU3007-03-24 08:29:00 Test Item Value Reference Range Interpretation Comments Monocytes (test code = Monocytes) 13.9 2.0-12.0 [facility] CentralLyqqaqvCDGANBKMON6519-79-52 08:29:00 Test Item Value Reference Range Interpretation Comments Segs (test code = Segs) 70.7 45.0-75.0 [facility] CentralLkwafvnDCJFECNITT7460-86-08 08:29:00 Test Item Value Reference Range Interpretation Comments Platelet (test code = Platelet) 217 133-450 [facility] CentralJpoaqfvFPTICPZHVA6978-65-85 08:29:00 Test Item Value Reference Range Interpretation Comments MPV (test code = MPV) 7.9 7.4-10.4 [facility] CentralDnvaaluZYZZAPTSWX3515-30-28 08:29:00 Test Item Value Reference Range Interpretation Comments MCHC (test code = MCHC) 33.8 32.0-36.0 [facility]QyhcdbrVSTZCYQBWK7732-88-27 08:29:00 Test Item Value Reference Range Interpretation Comments RDW (test code = RDW) 15.0 11.5-14.5 [facility]CpebohoKKPTVQTIQC7967-80-37 08:29:00 Test Item Value Reference Range Interpretation Comments Hct (test code = Hct) 21.8 42.0-54.0 [facility] HospitalLhqkaxgQCYDKCUIQE6447-98-33 08:29:00 Test Item Value Reference Range Interpretation Comments MCV (test code = MCV) 77.9 80.0-94.0 [facility] HospitalFzvzwdaMVFXCXLXPV9983-96-82 08:29:00 Test Item Value Reference Range Interpretation Comments MCH (test code = MCH) 26.3 pg 27.0-31.0 [facility] HospitalFaylzqoRJBMNLBWAL5276-97-50 08:29:00 Test Item Value Reference Range Interpretation Comments RBC (test code = RBC) 2.80 4.70-6.10 [facility] HospitalBkevnwbVHOYRRCYYH1483-23-42 08:29:00 Test Item Value Reference Range Interpretation Comments Hgb (test code = Hgb) 7.4 14.0-18.0 [facility] HospitalHfmqrqqHIBXVVSUYC5095-59-23 08:29:00 Test Item Value Reference Range Interpretation Comments WBC (test code = WBC) 7.1 3.7-10.4 [facility] HospitalQrvdcquRYMUAIMLBK4549-83-03 21:57:00 Test Item Value Reference Range Interpretation Comments Vanco Lvl (test code = Vanco Lvl) 18.3 [facility]QvzzxelRVDQNTTWUS0284-14-99 21:57:00 Test Item Value Reference Range Interpretation Comments Vanco Lvl (test code = Vanco Lvl) 18.3 [facility] HospitalWcbbrogJHOMVMLFZI1461-51-30 21:57:00 Test Item Value Reference Range Interpretation Comments Vanco Lvl (test code = Vanco Lvl) 18.3 [facility] HospitalannCHEM ATOTE8943-40-80 13:00:00 Test Item Value Reference Range Interpretation Comments Lactic Acid Lvl (test code = Lactic 0.3 0.5-2.2 Acid Lvl) [facility] HospitalZoxxcywSSPJARNLZJ4874-73-88 13:00:00 Test Item Value Reference Range Interpretation Comments Hep Bs Ag (test code Negative *NA*(03/17/18 = Hep Bs Ag) 8:00 AM) [facility] [id number] 13:00:00 Test Item Value Reference Range Interpretation Comments Lactic Acid Lvl (test code = Lactic 0.3 0.5-2.2 Acid Lvl) [facility] HospitalNgupojcDOFEKVCQTQ0147-52-15 13:00:00 Test Item Value Reference Range Interpretation Comments Hep Bs Ag (test code Negative *NA*(03/17/18 = Hep Bs Ag) 8:00 AM) [facility] [id number] 13:00:00 Test Item Value Reference Range Interpretation Comments Lactic Acid Lvl (test code = Lactic 0.3 0.5-2.2 Acid Lvl) [facility] HospitalRdjwzudFHGORFJZDF6529-85-69 13:00:00 Test Item Value Reference Range Interpretation Comments Hep Bs Ag (test code Negative *NA*(03/17/18 = Hep Bs Ag) 8:00 AM) [facility]2018-06-09 11:05:00 Test Item Value Reference Range Interpretation Comments Lactic Acid Lvl (test code = Lactic 0.3 0.5-2.2 Acid Lvl) [facility] [id number] 11:05:00 Test Item Value Reference Range Interpretation Comments Lactic Acid Lvl (test code = Lactic 0.3 0.5-2.2 Acid Lvl) [facility] [id number] 11:05:00 Test Item Value Reference Range Interpretation Comments Lactic Acid Lvl (test code = Lactic 0.3 0.5-2.2 Acid Lvl) [facility] [id number] 08:09:00 Test Item Value Reference Range Interpretation Comments CK MB Index (test 1.2 1 See_Comment [Automate d message] The code = CK MB Index) system w [facility] generated this result transmit emerson reference range : <=2.5. The reference range was not used to interpr et this result as erinn l/abnormal. [facility]CARCA[facility] [id number] 08:09:00 Test Item Value Reference Range Interpretation Comments Total CK (test code = Total CK) 122 12-191 [facility] HospitalTrusted Hands NetworkCAVERNA MEMORIAL HOSPITAL IKWZWHZ2402-27-48 08:09:00 Test Item Value Reference Range Interpretation Comments proBNP (test code = 90782 See_Comment [Automa emerson message] The proBNP) system which ge nerated this result tra nsmitted reference range : <=125. The reference r yared was not used to int erpret this result as erinn l/abnormal. [facility] LaboratoryCARAl[facility] [employer] [id number] 08:09:00 Test Item Value Reference Range Interpretation Comments CK MB (test code = CK MB) 1.5 0.5-3.6 [facility]12Return [id number] 08:09:00 Test Item Value Reference Range Interpretation Comments Troponin-I (test code no gt See_Comment [Auto mated message] The = Troponin-I) system which g enerated this result transmit emerson reference range : <=0.40. The reference r yared was not used to interpr et this result as erinn l/abnormal. [facility] [employer] [id number] 08:09:00 Test Item Value Reference Range Interpretation Comments Ammonia (test code = Ammonia) 33.[address] [facility] [employer] [id number] 08:09:00 Test Item Value Reference Range Interpretation Comments eGFR (test code = eGFR) 4 [facility] HospitalMySmartPrice [id number] 08:09:00 Test Item Value Reference Range Interpretation Comments Alk Phos (test code = Alk Phos) 89 39-[address] [facility] [employer] [id number] 08:09:00 Test Item Value Reference Range Interpretation Comments Chloride Lvl (test code = Chloride Lvl) 93 95-[address] [facility] [employer] [id number] 08:09:00 Test Item Value Reference Range Interpretation Comments Globulin (test code = Globulin) 4.1 2.7-4.[address] [facility] [employer] [id number] 08:09:00 Test Item Value Reference Range Interpretation Comments A/G Ratio (test code = A/G Ratio) 0.7 1 0.7-1.[address] [facility] [employer] [id number] 08:09:00 Test Item Value Reference Range Interpretation Comments B/C Ratio (test code = B/C Ratio) 7 1 6-[address] [facility] [employer] [id number] 08:09:00 Test Item Value Reference Range Interpretation Comments AGAP (test code = AGAP) 20.4 10.0-20.[address] [facility] [employer] [id number] 08:09:00 Test Item Value Reference Range Interpretation Comments Bili Total (test code = Bili Total) 0.4 0.2-1.3 [facility]2018-06-09 08:09:00 Test Item Value Reference Range Interpretation Comments AST (test code = AST) 11 See_Comment [Auto mated message] The system which ge nerated this result transmit emerson reference range : <=37. The reference range was not used to interpr et this result as erinn l/abnormal. [facility]2018-06-09 08:09:00 Test Item Value Reference Range Interpretation Comments ALT (test code = ALT) 10 See_Comment [Auto mated message] The system which ge nerated this result transmit emerson reference range : <=65. The reference range was not used to interpr et this result as erinn l/abnormal. [facility]2018-06-09 08:09:00 Test Item Value Reference Range Interpretation Comments Albumin Lvl (test code = Albumin Lvl) 2.7 3.5-5.0 [facility]2018-06-09 08:09:00 Test Item Value Reference Range Interpretation Comments CO2 (test code = CO2) 21 24-32 [facility]2018-06-09 08:09:00 Test Item Value Reference Range Interpretation Comments Total Protein (test code = Total 6.8 6.4-8.4 Protein) [facility]2018-06-09 08:09:00 Test Item Value Reference Range Interpretation Comments Calcium Lvl (test code = Calcium Lvl) 7.5 8.5-10.5 [facility]2018-06-09 08:09:00 Test Item Value Reference Range Interpretation Comments Sodium Lvl (test code = Sodium Lvl) 130 135-145 [facility]2018-06-09 08:09:00 Test Item Value Reference Range Interpretation Comments Potassium Lvl (test code = Potassium 4.4 3.5-5.1 Lvl) [facility]2018-06-09 08:09:00 Test Item Value Reference Range Interpretation Comments Creatinine Lvl (test code = Creatinine 12.50 0.50-1.40 Lvl) [place] [id number] 08:09:00 Test Item Value Reference Range Interpretation Comments BUN (test code = BUN) 85 7-22 [facility]2018-06-09 08:09:00 Test Item Value Reference Range Interpretation Comments Glucose Lvl (test code = Glucose Lvl) 172 70-99 [facility]2018-06-09 08:09:00 Test Item Value Reference Range Interpretation Comments Magnesium Lvl (test code = Magnesium 1.9 1.8-2.4 Lvl) [facility]2018-06-09 08:09:00 Test Item Value Reference Range Interpretation Comments Lipase Lvl (test code = Lipase Lvl) [phone] [facility]2018-06-09 08:09:00 Test Item Value Reference Range Interpretation Comments Phosphorus (test code = Phosphorus) 7.5 2.5-4.5 [facility]QiqaxkvXNHFXINJBM3042-02-84 08:09:00 Test Item Value Reference Range Interpretation Comments Monocytes # (test code 0.8 See_Comment [Aut omated message] The = Monocytes #) system which generated this result tra nsmitted reference range : <=0.8. The reference r yared was not used to int erpret this result as normal/abnormal . [facility] CentralAmfbhliMQBGRATHNF6061-28-67 08:09:00 Test Item Value Reference Range Interpretation Comments Eosinophils (test code = 0.5 See_Comment [A utomated message] The Eosinophils) system which ge nerated this result tra nsmitted reference range : <=4.0. The reference r yared was not used to int erpret this result as normal/abnormal . [facility] CentralXabxpjrMXDCVACSKQ4045-17-44 08:09:00 Test Item Value Reference Range Interpretation Comments Lymphocytes # (test code = Lymphocytes 0.7 1.0-5.5 #) [facility] CentralPmfybkcBOBNTAJXMZ8626-47-07 08:09:00 Test Item Value Reference Range Interpretation Comments Basophils (test code = 0.5 See_Comment [Aut omated message] The Basophils) system which ge nerated this result tra nsmitted reference range : <=1.0. The reference r yared was not used to int erpret this result as normal/abnormal . [facility] CentralByzygnzYDSMUEBMJH3971-04-11 08:09:00 Test Item Value Reference Range Interpretation Comments Segs-Bands # (test code = Segs-Bands #) 7.4 1.5-8.1 [facility] CentralJyacsuuGINARIHOEX4962-65-67 08:09:00 Test Item Value Reference Range Interpretation Comments Microcyte (test code = 1+ *ABN*(03/17/18 3:09 Microcyte) AM) [facility] CentralXyxtffzKTLOVMREFG7862-23-33 08:09:00 Test Item Value Reference Range Interpretation Comments Lymphocytes (test code = Lymphocytes) 7.7 20.0-40.0 [facility] CentralIododzdJESVYGMUZL1958-59-27 08:09:00 Test Item Value Reference Range Interpretation Comments Monocytes (test code = Monocytes) 9.3 2.0-12.0 [facility] CentralKalikpkSKTIPDSSTN1522-70-61 08:09:00 Test Item Value Reference Range Interpretation Comments Segs (test code = Segs) 82.0 45.0-75.0 [facility] CentralMoijtghEGDGMFAXNG7508-42-33 08:09:00 Test Item Value Reference Range Interpretation Comments INR (test code = INR) 1.26 1 0.85-1.17 [facility] CentralXbbosztGJSCHJRRJC0652-41-08 08:09:00 Test Item Value Reference Range Interpretation Comments PT (test code = PT) 15.9 s 12.0-14.7 [facility] CentralLjqufxdZCXVZSHBGV4280-03-61 08:09:00 Test Item Value Reference Range Interpretation Comments MCH (test code = MCH) 26.4 pg 27.0-31.0 [facility] CentralVjciqwlZHQUUZXLNB0601-64-23 08:09:00 Test Item Value Reference Range Interpretation Comments MCV (test code = MCV) 77.8 80.0-94.0 [facility] CentralCumafsdCDFVGIYFNH5352-45-77 08:09:00 Test Item Value Reference Range Interpretation Comments Hct (test code = Hct) 22.2 42.0-54.0 [facility] CentralLepconnUEYWHVKGMG3343-97-47 08:09:00 Test Item Value Reference Range Interpretation Comments Hgb (test code = Hgb) 7.5 14.0-18.0 [facility] CentralYfncamgERAZVQGGLK1516-52-91 08:09:00 Test Item Value Reference Range Interpretation Comments WBC (test code = WBC) 9.0 3.7-10.4 [facility] CentralKrbxiihDCAQOLHMHC8647-89-99 08:09:00 Test Item Value Reference Range Interpretation Comments RBC (test code = RBC) 2.86 4.70-6.10 [facility] CentralCewvcedTIXKEZOUQH3398-67-16 08:09:00 Test Item Value Reference Range Interpretation Comments MPV (test code = MPV) 7.4 7.4-10.4 [facility]teuhbkFMJBEJHYOX7308-41-54 08:09:00 Test Item Value Reference Range Interpretation Comments Platelet (test code = Platelet) 220 133-450 [facility] HospitalMabpgsyDKXRJOWFEL6229-16-36 08:09:00 Test Item Value Reference Range Interpretation Comments RDW (test code = RDW) 15.1 11.5-14.5 [facility] HospitalYlcrxauZFBNDKTOTN7593-76-08 08:09:00 Test Item Value Reference Range Interpretation Comments MCHC (test code = MCHC) 34.0 32.0-36.[address] [facility] [employer]2018-06-09 08:09:00 Test Item Value Reference Range Interpretation Comments CK MB Index (test 1.2 1 See_Comment [Automate d message] The code = CK MB Index) system w [facility] generated this result transmit emerson reference range : <=2.5. The reference range was not used to interpr et this result as erinn l/abnormal. [facility] [employer]2018-06-09 08:09:00 Test Item Value Reference Range Interpretation Comments Total CK (test code = Total CK) 122 12-[address] [facility] [employer]2018-06-09 08:09:00 Test Item Value Reference Range Interpretation Comments proBNP (test code = 71816 See_Comment [Automa emerson message] The proBNP) system which ge nerated this result tra nsmitted reference range : <=125. The reference r yared was not used to int erpret this result as erinn l/abnormal. [facility] [employer]2018-06-09 08:09:00 Test Item Value Reference Range Interpretation Comments CK MB (test code = CK MB) 1.5 0.5-3.6 [facility] 08:09:00 Test Item Value Reference Range Interpretation Comments Troponin-I (test code no gt See_Comment [Auto mated message] The = Troponin-I) system which g enerated this result transmit emerson reference range : <=0.40. The reference r yared was not used to interpr et this result as erinn l/abnormal. [facility] [employer] [id number] 08:09:00 Test Item Value Reference Range Interpretation Comments Ammonia (test code = Ammonia) 33.0 [facility]2018-06-09 08:09:00 Test Item Value Reference Range Interpretation Comments eGFR (test code = eGFR) 4 [facility]2018-06-09 08:09:00 Test Item Value Reference Range Interpretation Comments Alk Phos (test code = Alk Phos) 89 39-136 [facility]2018-06-09 08:09:00 Test Item Value Reference Range Interpretation Comments Chloride Lvl (test code = Chloride Lvl) 93 95-109 [facility]2018-06-09 08:09:00 Test Item Value Reference Range Interpretation Comments Globulin (test code = Globulin) 4.1 2.7-4.2 [place] 597388-06-09 08:09:00 Test Item Value Reference Range Interpretation Comments A/G Ratio (test code = A/G Ratio) 0.7 1 0.7-1.6 [facility]2018-06-09 08:09:00 Test Item Value Reference Range Interpretation Comments B/C Ratio (test code = B/C Ratio) 7 1 6-25 [facility]2018-06-09 08:09:00 Test Item Value Reference Range Interpretation Comments AGAP (test code = AGAP) 20.4 10.0-20.0 [facility]2018-06-09 08:09:00 Test Item Value Reference Range Interpretation Comments Bili Total (test code = Bili Total) 0.4 0.2-1.3 [facility]2018-06-09 08:09:00 Test Item Value Reference Range Interpretation Comments AST (test code = AST) 11 See_Comment [Auto mated message] The system which ge nerated this result transmit emerson reference range : <=37. The reference range was not used to interpr et this result as erinn l/abnormal. [facility]2018-06-09 08:09:00 Test Item Value Reference Range Interpretation Comments ALT (test code = ALT) 10 See_Comment [Auto mated message] The system which ge nerated this result transmit emerson reference range : <=65. The reference range was not used to interpr et this result as erinn l/abnormal. [place] 597388-06-09 08:09:00 Test Item Value Reference Range Interpretation Comments Albumin Lvl (test code = Albumin Lvl) 2.7 3.5-5.0 [facility]2018-06-09 08:09:00 Test Item Value Reference Range Interpretation Comments CO2 (test code = CO2) 21 24-32 [facility]2018-06-09 08:09:00 Test Item Value Reference Range Interpretation Comments Total Protein (test code = Total 6.8 6.4-8.4 Protein) [facility]2018-06-09 08:09:00 Test Item Value Reference Range Interpretation Comments Calcium Lvl (test code = Calcium Lvl) 7.5 8.5-10.5 [facility]2018-06-09 08:09:00 Test Item Value Reference Range Interpretation Comments Sodium Lvl (test code = Sodium Lvl) 130 135-145 [facility]2018-06-09 08:09:00 Test Item Value Reference Range Interpretation Comments Potassium Lvl (test code = Potassium 4.4 3.5-5.1 Lvl) [facility]2018-06-09 08:09:00 Test Item Value Reference Range Interpretation Comments Creatinine Lvl (test code = Creatinine 12.50 0.50-1.40 Lvl) [facility]2018-06-09 08:09:00 Test Item Value Reference Range Interpretation Comments BUN (test code = BUN) 85 7-22 [facility]2018-06-09 08:09:00 Test Item Value Reference Range Interpretation Comments Glucose Lvl (test code = Glucose Lvl) 172 70-99 [facility]2018-06-09 08:09:00 Test Item Value Reference Range Interpretation Comments Magnesium Lvl (test code = Magnesium 1.9 1.8-2.4 Lvl) [facility]2018-06-09 08:09:00 Test Item Value Reference Range Interpretation Comments Lipase Lvl (test code = Lipase Lvl) 65 73-393 [facility]2018-06-09 08:09:00 Test Item Value Reference Range Interpretation Comments Phosphorus (test code = Phosphorus) 7.5 2.5-4.5 [facility] HospitalDoywmkuBTSHEXASSZ8539-87-72 08:09:00 Test Item Value Reference Range Interpretation Comments Monocytes # (test code 0.8 See_Comment [Aut omated message] The = Monocytes #) system which generated this result tra nsmitted reference range : <=0.8. The reference r yaerd was not used to int erpret this result as normal/abnormal . [facility] CentralBokrwwgKUHGAYJEUD7858-41-00 08:09:00 Test Item Value Reference Range Interpretation Comments Eosinophils (test code = 0.5 See_Comment [A utomated message] The Eosinophils) system which ge nerated this result tra nsmitted reference range : <=4.0. The reference r yared was not used to int erpret this result as normal/abnormal . [facility] CentralFhayjzpCQRHEBUZBN5203-85-22 08:09:00 Test Item Value Reference Range Interpretation Comments Lymphocytes # (test code = Lymphocytes 0.7 1.0-5.5 #) [facility] CentralAixtbalKQPKSGQDYI1987-83-97 08:09:00 Test Item Value Reference Range Interpretation Comments Basophils (test code = 0.5 See_Comment [Aut omated message] The Basophils) system which ge nerated this result tra nsmitted reference range : <=1.0. The reference r yared was not used to int erpret this result as normal/abnormal . [facility] CentralMehelkdLNVYSFGUXQ1299-95-86 08:09:00 Test Item Value Reference Range Interpretation Comments Segs-Bands # (test code = Segs-Bands #) 7.4 1.5-8.1 [facility] CentralGdzxluqSLTTXXFETI9913-92-90 08:09:00 Test Item Value Reference Range Interpretation Comments Microcyte (test code = 1+ *ABN*(03/17/18 3:09 Microcyte) AM) [facility] CentralAmvzvnrIRQXZTGQPI8152-54-23 08:09:00 Test Item Value Reference Range Interpretation Comments Lymphocytes (test code = Lymphocytes) 7.7 20.0-40.0 [facility] CentralHmjbqftMLZZLVRGAE6384-44-82 08:09:00 Test Item Value Reference Range Interpretation Comments Monocytes (test code = Monocytes) 9.3 2.0-12.0 [facility] CentralFzcqwugHUYLIFGZZU2571-73-64 08:09:00 Test Item Value Reference Range Interpretation Comments Segs (test code = Segs) 82.0 45.0-75.0 [facility] CentralAcuneuoKDBSPCRWLA6444-65-00 08:09:00 Test Item Value Reference Range Interpretation Comments INR (test code = INR) 1.26 1 0.85-1.17 [facility] CentralOcleganZQBONTBKVN1480-76-55 08:09:00 Test Item Value Reference Range Interpretation Comments PT (test code = PT) 15.9 s 12.0-14.7 [facility] CentralQazgenfBVSOKOBREL7990-32-85 08:09:00 Test Item Value Reference Range Interpretation Comments MCH (test code = MCH) 26.4 pg 27.0-31.0 [facility] CentralJltdhrlVQWZSQVVCU2445-17-33 08:09:00 Test Item Value Reference Range Interpretation Comments MCV (test code = MCV) 77.8 80.0-94.0 [facility] CentralYyfrizyEITAVNXYVH6592-37-18 08:09:00 Test Item Value Reference Range Interpretation Comments Hct (test code = Hct) 22.2 42.0-54.0 [facility] CentralPswngkeYMORNGWFNV6551-83-39 08:09:00 Test Item Value Reference Range Interpretation Comments Hgb (test code = Hgb) 7.5 14.0-18.0 [facility] CentralLqjtkvrRZLMLUWAEN1504-80-25 08:09:00 Test Item Value Reference Range Interpretation Comments WBC (test code = WBC) 9.0 3.7-10.4 [facility] CentralSlsqatfGZSTWDEUFW7693-49-87 08:09:00 Test Item Value Reference Range Interpretation Comments RBC (test code = RBC) 2.86 4.70-6.10 [facility] CentralVhvgdnpUBMKQIUXIL1260-81-61 08:09:00 Test Item Value Reference Range Interpretation Comments MPV (test code = MPV) 7.4 7.4-10.4 [facility] CentralHcedkttDRDAOYZYDN8088-16-23 08:09:00 Test Item Value Reference Range Interpretation Comments Platelet (test code = Platelet) 220 133-450 [facility] CentralBefbgyjPDXTVDUWXI7567-83-13 08:09:00 Test Item Value Reference Range Interpretation Comments RDW (test code = RDW) 15.1 11.5-14.5 [facility] CentralWgqzfhaQTQJFNOUDC2987-43-90 08:09:00 Test Item Value Reference Range Interpretation Comments MCHC (test code = MCHC) 34.0 32.0-36.0 [facility] HospitalCARDIAC QIPYDGC9430-84-93 08:09:00 Test Item Value Reference Range Interpretation Comments CK MB Index (test 1.2 1 See_Comment [Automate d message] The code = CK MB Index) system w hich generated this result transmit emerson reference range : <=2.5. The reference range was not used to interpr et this result as erinn l/abnormal. [facility] Exam18 [id number] 08:09:00 Test Item Value Reference Range Interpretation Comments Total CK (test code = Total CK) 122 12-191 [facility]Ze[facility] RVPCTDH4492-58-76 08:09:00 Test Item Value Reference Range Interpretation Comments proBNP (test code = 17332 See_Comment [Automa emerson message] The proBNP) system which ge nerated this result tra nsmitted reference range : <=125. The reference r yared was not used to int erpret this result as erinn l/abnormal. [facility] Exam18 [id number] 08:09:00 Test Item Value Reference Range Interpretation Comments CK MB (test code = CK MB) 1.5 0.5-3.6 [facility] 08:09:00 Test Item Value Reference Range Interpretation Comments Troponin-I (test code no gt See_Comment [Auto mated message] The = Troponin-I) system which g enerated this result transmit emerson reference range : <=0.40. The reference r yared was not used to interpr et this result as erinn l/abnormal. [facility] [employer]2018-06-09 08:09:00 Test Item Value Reference Range Interpretation Comments Ammonia (test code = Ammonia) 33.[address] [facility] [employer]2018-06-09 08:09:00 Test Item Value Reference Range Interpretation Comments eGFR (test code = eGFR) [address] [facility] [employer]2018-06-09 08:09:00 Test Item Value Reference Range Interpretation Comments Alk Phos (test code = Alk Phos) 89 39-[address] [facility] [employer]2018-06-09 08:09:00 Test Item Value Reference Range Interpretation Comments Chloride Lvl (test code = Chloride Lvl) 93 95-[address] [facility] [employer] [id number] 08:09:00 Test Item Value Reference Range Interpretation Comments Globulin (test code = Globulin) 4.1 2.7-4.[address] [facility] [employer]2018-06-09 08:09:00 Test Item Value Reference Range Interpretation Comments A/G Ratio (test code = A/G Ratio) 0.7 1 0.7-1.6 [facility]2018-06-09 08:09:00 Test Item Value Reference Range Interpretation Comments B/C Ratio (test code = B/C Ratio) 7 1 6-25 [place] 597388-06-09 08:09:00 Test Item Value Reference Range Interpretation Comments AGAP (test code = AGAP) 20.4 10.0-20.0 [facility]2018-06-09 08:09:00 Test Item Value Reference Range Interpretation Comments Bili Total (test code = Bili Total) 0.4 0.2-1.3 [facility]2018-06-09 08:09:00 Test Item Value Reference Range Interpretation Comments AST (test code = AST) 11 See_Comment [Auto mated message] The system which ge nerated this result transmit emerson reference range : <=37. The reference range was not used to interpr et this result as erinn l/abnormal. [facility]2018-06-09 08:09:00 Test Item Value Reference Range Interpretation Comments ALT (test code = ALT) 10 See_Comment [Auto mated message] The system which ge nerated this result transmit emerson reference range : <=65. The reference range was not used to interpr et this result as erinn l/abnormal. [facility]2018-06-09 08:09:00 Test Item Value Reference Range Interpretation Comments Albumin Lvl (test code = Albumin Lvl) 2.7 3.5-5.0 [facility]2018-06-09 08:09:00 Test Item Value Reference Range Interpretation Comments CO2 (test code = CO2) 21 24-32 [facility]2018-06-09 08:09:00 Test Item Value Reference Range Interpretation Comments Total Protein (test code = Total 6.8 6.4-8.4 Protein) [facility]2018-06-09 08:09:00 Test Item Value Reference Range Interpretation Comments Calcium Lvl (test code = Calcium Lvl) 7.5 8.5-10.5 [facility]2018-06-09 08:09:00 Test Item Value Reference Range Interpretation Comments Sodium Lvl (test code = Sodium Lvl) 130 135-145 [facility]2018-06-09 08:09:00 Test Item Value Reference Range Interpretation Comments Potassium Lvl (test code = Potassium 4.4 3.5-5.1 Lvl) [facility]2018-06-09 08:09:00 Test Item Value Reference Range Interpretation Comments Creatinine Lvl (test code = Creatinine 12.50 0.50-1.40 Lvl) [facility]2018-06-09 08:09:00 Test Item Value Reference Range Interpretation Comments BUN (test code = BUN) 85 7-22 [place] 597388-06-09 08:09:00 Test Item Value Reference Range Interpretation Comments Glucose Lvl (test code = Glucose Lvl) 172 70-99 [facility]2018-06-09 08:09:00 Test Item Value Reference Range Interpretation Comments Magnesium Lvl (test code = Magnesium 1.9 1.8-2.4 Lvl) [facility]2018-06-09 08:09:00 Test Item Value Reference Range Interpretation Comments Lipase Lvl (test code = Lipase Lvl) 65 73-393 [place] 597388-06-09 08:09:00 Test Item Value Reference Range Interpretation Comments Phosphorus (test code = Phosphorus) 7.5 2.5-4.5 [facility] CentralUugfuyuZPSMOIKDQJ3196-10-45 08:09:00 Test Item Value Reference Range Interpretation Comments Monocytes # (test code 0.8 See_Comment [Aut omated message] The = Monocytes #) system which generated this result tra nsmitted reference range : <=0.8. The reference r yared was not used to int erpret this result as normal/abnormal . [facility] CentralCdqpbntJXIFUURMTU3256-56-96 08:09:00 Test Item Value Reference Range Interpretation Comments Eosinophils (test code = 0.5 See_Comment [A utomated message] The Eosinophils) system which ge nerated this result tra nsmitted reference range : <=4.0. The reference r yared was not used to int erpret this result as normal/abnormal . [facility] CentralPhqohyaWGHTKLUVMP7789-09-57 08:09:00 Test Item Value Reference Range Interpretation Comments Lymphocytes # (test code = Lymphocytes 0.7 1.0-5.5 #) [facility] CentralXthpogiXTXNWUTHJG4907-57-95 08:09:00 Test Item Value Reference Range Interpretation Comments Basophils (test code = 0.5 See_Comment [Aut omated message] The Basophils) system which ge nerated this result tra nsmitted reference range : <=1.0. The reference r yared was not used to int erpret this result as normal/abnormal . [facility] CentralLksolxbPSMJYPBYFW7175-44-06 08:09:00 Test Item Value Reference Range Interpretation Comments Segs-Bands # (test code = Segs-Bands #) 7.4 1.5-8.1 [facility] CentralLpjtpdvRTZLRLYEXA6479-85-27 08:09:00 Test Item Value Reference Range Interpretation Comments Microcyte (test code = 1+ *ABN*(03/17/18 3:09 Microcyte) AM) [facility] CentralPjmatjqAPCWHFRZDZ4616-71-30 08:09:00 Test Item Value Reference Range Interpretation Comments Lymphocytes (test code = Lymphocytes) 7.7 20.0-40.0 [facility] CentralJuknqxfTNPPLBLYZD6890-72-37 08:09:00 Test Item Value Reference Range Interpretation Comments Monocytes (test code = Monocytes) 9.3 2.0-12.0 [facility] CentralAucauqvWSUMAQTAOG5864-71-98 08:09:00 Test Item Value Reference Range Interpretation Comments Segs (test code = Segs) 82.0 45.0-75.0 [facility] CentralYsbbugwYJAIBSCAVP9612-90-27 08:09:00 Test Item Value Reference Range Interpretation Comments INR (test code = INR) 1.26 1 0.85-1.17 [facility] CentralSjjtbfhYAZBGCQZUC1056-52-22 08:09:00 Test Item Value Reference Range Interpretation Comments PT (test code = PT) 15.9 s 12.0-14.7 [facility] CentralYphshmoHPWLIEXJPC0439-53-78 08:09:00 Test Item Value Reference Range Interpretation Comments MCH (test code = MCH) 26.4 pg 27.0-31.0 [facility] CentralWstdoedYKKEDPJLKX8709-61-99 08:09:00 Test Item Value Reference Range Interpretation Comments MCV (test code = MCV) 77.8 80.0-94.0 [facility] CentralPmorejtGWXEDMWGOM6421-47-36 08:09:00 Test Item Value Reference Range Interpretation Comments Hct (test code = Hct) 22.2 42.0-54.0 [facility] CentralAcoecnrBLXPCMWCQG1356-38-14 08:09:00 Test Item Value Reference Range Interpretation Comments Hgb (test code = Hgb) 7.5 14.0-18.0 [facility] CentralHglwyzoXAKSZHKHSH7046-25-38 08:09:00 Test Item Value Reference Range Interpretation Comments WBC (test code = WBC) 9.0 3.7-10.4 [facility] CentralUmwmcxpYMIRDGBURJ0660-62-13 08:09:00 Test Item Value Reference Range Interpretation Comments RBC (test code = RBC) 2.86 4.70-6.10 [facility] CentralBkjqievZMWCZEGVVQ7033-21-84 08:09:00 Test Item Value Reference Range Interpretation Comments MPV (test code = MPV) 7.4 7.4-10.4 [facility] CentralZgbaxygOEVEQHXODT9268-56-08 08:09:00 Test Item Value Reference Range Interpretation Comments Platelet (test code = Platelet) 220 133-450 [facility] CentralBrlifsbYKWMMITTQZ1561-12-50 08:09:00 Test Item Value Reference Range Interpretation Comments RDW (test code = RDW) 15.1 11.5-14.5 [facility] CentralYbjfhvuRHIQSNQYPZ8300-63-90 08:09:00 Test Item Value Reference Range Interpretation Comments MCHC (test code = MCHC) 34.0 32.0-36.0 [facility]12Return HGIGYQV4142-37-80 00:37:00 Test Item Value Reference Range Interpretation Comments CK MB Index (test 1.7 1 See_Comment [Automate d message] The code = CK MB Index) system w [facility] generated this result transmit emerson reference range : <=2.5. The reference range was not used to interpr et this result as erinn l/abnormal. [facility] Test Item Value Reference Range Interpretation Comments CK MB (test code = CK MB) 2.9 0.5-3.6 [facility] [id number] 00:37:00 Test Item Value Reference Range Interpretation Comments Troponin-I (test code no gt See_Comment [Auto mated message] The = Troponin-I) system which g enerated this result transmit emerson reference range : <=0.40. The reference r yared was not used to interpr et this result as erinn l/abnormal. [facility] Material [employer]rld2018-04-17 00:37:00 Test Item Value Reference Range Interpretation Comments Total CK (test code = Total CK) 166 12-191 [facility] [id number] 00:37:00 Test Item Value Reference Range Interpretation Comments proBNP (test code = 4827 See_Comment [Automa emerson message] The proBNP) system which ge nerated this result tra nsmitted reference range : <=125. The reference r yared was not used to int erpret this result as erinn l/abnormal. [facility] [employer]2018-04-17 00:37:00 Test Item Value Reference Range Interpretation Comments Magnesium Lvl (test code = Magnesium 1.9 1.8-2.4 Lvl) [facility] [employer]2018-04-17 00:37:00 Test Item Value Reference Range Interpretation Comments Phosphorus (test code = Phosphorus) 9.1 2.5-4.[address] [facility] [employer]2018-04-17 00:37:00 Test Item Value Reference Range Interpretation Comments eGFR (test code = eGFR) [address] [facility] [employer]2018-04-17 00:37:00 Test Item Value Reference Range Interpretation Comments Alk Phos (test code = Alk Phos) 115 39-[address] [facility] [employer]2018-04-17 00:37:00 Test Item Value Reference Range Interpretation Comments AST (test code = AST) 23 See_Comment [Auto mated message] The system which ge nerated this result transmit emerson reference range : <=37. The reference range was not used to interpr et this result as erinn l/abnormal. [facility] [employer] [id number] 00:37:00 Test Item Value Reference Range Interpretation Comments ALT (test code = ALT) 24 See_Comment [Auto mated message] The system which ge nerated this result transmit emerson reference range : <=65. The reference range was not used to interpr et this result as erinn l/abnormal. [facility] [employer]2018-04-17 00:37:00 Test Item Value Reference Range Interpretation Comments A/G Ratio (test code = A/G Ratio) 0.8 1 0.7-1.[address] [facility] [employer]2018-04-17 00:37:00 Test Item Value Reference Range Interpretation Comments Globulin (test code = Globulin) 4.0 2.7-4.2 [facility]2018-04-17 00:37:00 Test Item Value Reference Range Interpretation Comments Bili Total (test code = Bili Total) 0.4 0.2-1.3 [facility]2018-04-17 00:37:00 Test Item Value Reference Range Interpretation Comments Potassium Lvl (test code = Potassium 4.4 3.5-5.1 Lvl) [facility]2018-04-17 00:37:00 Test Item Value Reference Range Interpretation Comments Calcium Lvl (test code = Calcium Lvl) 6.7 8.5-10.5 [facility]2018-04-17 00:37:00 Test Item Value Reference Range Interpretation Comments Sodium Lvl (test code = Sodium Lvl) 130 135-145 [facility]2018-04-17 00:37:00 Test Item Value Reference Range Interpretation Comments Creatinine Lvl (test code = Creatinine 11.00 0.50-1.40 Lvl) [facility]2018-04-17 00:37:00 Test Item Value Reference Range Interpretation Comments AGAP (test code = AGAP) 17.4 10.0-20.0 [facility]2018-04-17 00:37:00 Test Item Value Reference Range Interpretation Comments CO2 (test code = CO2) 25 24-32 [facility]2018-04-17 00:37:00 Test Item Value Reference Range Interpretation Comments Chloride Lvl (test code = Chloride Lvl) 92 95-109 [facility]2018-04-17 00:37:00 Test Item Value Reference Range Interpretation Comments Albumin Lvl (test code = Albumin Lvl) 3.4 3.5-5.0 [facility]2018-04-17 00:37:00 Test Item Value Reference Range Interpretation Comments Total Protein (test code = Total 7.4 6.4-8.4 Protein) [facility]2018-04-17 00:37:00 Test Item Value Reference Range Interpretation Comments B/C Ratio (test code = B/C Ratio) 8 1 6-25 [facility]2018-04-17 00:37:00 Test Item Value Reference Range Interpretation Comments BUN (test code = BUN) 84 7-22 [facility]2018-04-17 00:37:00 Test Item Value Reference Range Interpretation Comments Glucose Lvl (test code = Glucose Lvl) 123 70-99 [facility] CentralJhouhofTPNMXSORUJ6678-28-63 00:37:00 Test Item Value Reference Range Interpretation Comments Lymphocytes (test code = Lymphocytes) 21.5 20.0-40.0 [facility] CentralHxzyyjaBWCIUHIJCA5977-81-03 00:37:00 Test Item Value Reference Range Interpretation Comments Lymphocytes # (test code = Lymphocytes 1.6 1.0-5.5 #) [facility] CentralQgoeawxPHZHEMFBSY3302-30-02 00:37:00 Test Item Value Reference Range Interpretation Comments Eosinophils # (test code 0.3 See_Comment [A utomated message] The = Eosinophils #) system wh h generated this result tra nsmitted reference range : <=0.5. The reference r yared was not used to int erpret this result as normal/abnormal . [facility] CentralSnnrplsDUCRFNQYMK8889-26-56 00:37:00 Test Item Value Reference Range Interpretation Comments Segs (test code = Segs) 63.7 45.0-75.0 [facility] CentralEcqyjivKSJKYTSDPT9665-40-20 00:37:00 Test Item Value Reference Range Interpretation Comments Segs-Bands # (test code = Segs-Bands #) 4.8 1.5-8.1 [facility] CentralWvucnucDFKKAHQFXK2476-18-66 00:37:00 Test Item Value Reference Range Interpretation Comments Eosinophils (test code = 3.5 See_Comment [A utomated message] The Eosinophils) system which ge nerated this result tra nsmitted reference range : <=4.0. The reference r yared was not used to int erpret this result as normal/abnormal . [facility] CentralOvpbnwcYLKJGCYKZC1819-51-42 00:37:00 Test Item Value Reference Range Interpretation Comments Monocytes (test code = Monocytes) 10.4 2.0-12.0 [facility] CentralVhvdahlUWJTMSDHYG9657-53-61 00:37:00 Test Item Value Reference Range Interpretation Comments Basophils (test code = 0.9 See_Comment [Aut omated message] The Basophils) system which ge nerated this result tra nsmitted reference range : <=1.0. The reference r yared was not used to int erpret this result as normal/abnormal . [facility] CentralReryjuaXKOOUCEKVE9746-90-20 00:37:00 Test Item Value Reference Range Interpretation Comments Basophils # (test code 0.1 See_Comment [Aut omated message] The = Basophils #) system which generated this result tra nsmitted reference range : <=0.2. The reference r yared was not used to int erpret this result as normal/abnormal . [facility] CentralOjljgokGOPWZQRDYE4445-99-12 00:37:00 Test Item Value Reference Range Interpretation Comments Monocytes # (test code 0.8 See_Comment [Aut omated message] The = Monocytes #) system which generated this result tra nsmitted reference range : <=0.8. The reference r yared was not used to int erpret this result as normal/abnormal . [facility] CentralJpumfcuGJWWJJBUAY6674-93-76 00:37:00 Test Item Value Reference Range Interpretation Comments INR (test code = INR) 1.06 1 0.85-1.17 [facility] CentralDuqjtkyIRGLHCCIKW6417-08-94 00:37:00 Test Item Value Reference Range Interpretation Comments PT (test code = PT) 13.8 s 12.0-14.7 [facility] CentralDzyfkftVXQQTIUFBV9618-58-68 00:37:00 Test Item Value Reference Range Interpretation Comments PTT (test code = PTT) 35.7 s 22.9-35.8 [facility] CentralXgftlmjOECMVLJXNY6830-96-47 00:37:00 Test Item Value Reference Range Interpretation Comments Platelet (test code = Platelet) 238 133-450 [facility] CentralFzirztnRNQYPCLYKF1380-93-09 00:37:00 Test Item Value Reference Range Interpretation Comments MPV (test code = MPV) 7.5 7.4-10.4 [facility] CentralRhbgnxwTMLTQJZNLG4856-07-56 00:37:00 Test Item Value Reference Range Interpretation Comments Hct (test code = Hct) 25.4 42.0-54.0 [facility] CentralOejjmvqGNQUVCDVJT9773-24-39 00:37:00 Test Item Value Reference Range Interpretation Comments MCV (test code = MCV) 80.3 80.0-94.0 [facility] CentralPicsefpVFCCRUZTPH4756-86-80 00:37:00 Test Item Value Reference Range Interpretation Comments MCH (test code = MCH) 28.2 pg 27.0-31.0 [facility] CentralQaxbainPMGUZDBGQJ2467-93-45 00:37:00 Test Item Value Reference Range Interpretation Comments Hgb (test code = Hgb) 8.9 14.0-18.0 [facility] CentralIjtnahtCNMBQGXVQW6872-40-24 00:37:00 Test Item Value Reference Range Interpretation Comments MCHC (test code = MCHC) 35.1 32.0-36.0 [facility] CentralIokqlzfLTYRPHGAJY3656-74-44 00:37:00 Test Item Value Reference Range Interpretation Comments RDW (test code = RDW) 13.9 11.5-14.5 [facility] CentralLobftpdBHQCJSALBM4313-28-30 00:37:00 Test Item Value Reference Range Interpretation Comments WBC (test code = WBC) 7.6 3.7-10.4 [facility] CentralBmesefsCMKXRDGKZX1606-49-04 00:37:00 Test Item Value Reference Range Interpretation Comments RBC (test code = RBC) 3.16 4.70-6.10 [facility] AND [id number] 00:37:00 Test Item Value Reference Range Interpretation Comments UA Urobilinogen (test code = UA <=1.0 mg/dL 0.1-1.0 Urobilinogen) [facility] AND [id number] 00:37:00 Test Item Value Reference Range Interpretation Comments UA Glucose (test code = UA Glucose) 50 [facility] AND [id number] 00:37:00 Test Item Value Reference Range Interpretation Comments UA Color (test code = UA Color) STRAW [facility] AND [id number] 00:37:00 Test Item Value Reference Range Interpretation Comments UA Sq Epi (test code = UA Sq Epi) Few /LPF [facility] AND [id number] 00:37:00 Test Item Value Reference Range Interpretation Comments UA WBC (test code = 8 See_Comment [Automa emerson message] The UA WBC) system which ge nerated this result transmit emerson reference range : <=5. The reference range was not used to interpr et this result as erinn l/abnormal. [facility] AND [id number] 00:37:00 Test Item Value Reference Range Interpretation Comments UA Mucus (test code = UA Mucus) Few /LPF [facility] AND [id number] 00:37:00 Test Item Value Reference Range Interpretation Comments UA Bacteria (test code = UA Moderate /HPF Bacteria) [facility] AND [id number] 00:37:00 Test Item Value Reference Range Interpretation Comments UA Leuk Est (test code Small *ABN*(01/22/18 = UA Leuk Est) 7:37 PM) [facility] [id number] 00:37:00 Test Item Value Reference Range Interpretation Comments UA Protein (test code = UA >=300 mg/dL Protein) [facility] [id number] 00:37:00 Test Item Value Reference Range Interpretation Comments UA Ketones (test code = UA Negative mg/dL Ketones) [facility] [id number] 00:37:00 Test Item Value Reference Range Interpretation Comments UA pH (test code = UA pH) 6.0 1 5.0-8.0 [facility] [id number] 00:37:00 Test Item Value Reference Range Interpretation Comments UA Turbidity (test code = Clear (01/22/18 7:37 UA Turbidity) PM) [facility] [id number] 00:37:00 Test Item Value Reference Range Interpretation Comments UA Spec Grav (test code = UA Spec 1.005 1 Grav) [facility] [id number] 00:37:00 Test Item Value Reference Range Interpretation Comments UA Nitrite (test code Negative (01/22/18 7:37 = UA Nitrite) PM) [facility] [id number] 00:37:00 Test Item Value Reference Range Interpretation Comments UA Blood (test code = Small *ABN*(01/22/18 UA Blood) 7:37 PM) [facility] [id number] 00:37:00 Test Item Value Reference Range Interpretation Comments UA Bili (test code = Negative *NA*(01/22/18 UA Bili) 7:37 PM) [facility]AC [id number] 00:37:00 Test Item Value Reference Range Interpretation Comments CK MB Index (test 1.7 1 See_Comment [Automate d message] The code = CK MB Index) system w [facility] generated this result transmit emerson reference range : <=2.5. The reference range was not used to interpr et this result as erinn l/abnormal. [facility]AC [id number] 00:37:00 Test Item Value Reference Range Interpretation Comments CK MB (test code = CK MB) 2.9 0.5-3.[address] [facility] OctavianCARAlim InnovationsAC [id number] 00:37:00 Test Item Value Reference Range Interpretation Comments Troponin-I (test code no gt See_Comment [Auto mated message] The = Troponin-I) system which g enerated this result transmit emerson reference range : <=0.40. The reference r yared was not used to interpr et this result as erinn l/abnormal. [facility] [id number] 00:37:00 Test Item Value Reference Range Interpretation Comments Total CK (test code = Total CK) 166 12-[address] [facility] Exam18 [id number] 00:37:00 Test Item Value Reference Range Interpretation Comments proBNP (test code = 4827 See_Comment [Automa emerson message] The proBNP) system which ge nerated this result tra nsmitted reference range : <=125. The reference r yared was not used to int erpret this result as erinn l/abnormal. [employer] [id number] 00:37:00 Test Item Value Reference Range Interpretation Comments Magnesium Lvl (test code = Magnesium 1.9 1.8-2.4 Lvl) [facility] [employer] [id number] 00:37:00 Test Item Value Reference Range Interpretation Comments Phosphorus (test code = Phosphorus) 9.1 2.5-4.[address] [facility] [employer] [id number] 00:37:00 Test Item Value Reference Range Interpretation Comments eGFR (test code = eGFR) [address] [facility] [employer] [id number] 00:37:00 Test Item Value Reference Range Interpretation Comments Alk Phos (test code = Alk Phos) 115 39-[address] [facility] [employer] [id number] 00:37:00 Test Item Value Reference Range Interpretation Comments AST (test code = AST) 23 See_Comment [Auto mated message] The system which ge nerated this result transmit emerson reference range : <=37. The reference range was not used to interpr et this result as erinn l/abnormal. [employer] [id number] 00:37:00 Test Item Value Reference Range Interpretation Comments ALT (test code = ALT) 24 See_Comment [Auto mated message] The system which ge nerated this result transmit emerson reference range : <=65. The reference range was not used to interpr et this result as erinn l/abnormal. [facility]2018-04-17 00:37:00 Test Item Value Reference Range Interpretation Comments A/G Ratio (test code = A/G Ratio) 0.8 1 0.7-1.6 [facility]2018-04-17 00:37:00 Test Item Value Reference Range Interpretation Comments Globulin (test code = Globulin) 4.0 2.7-4.2 [facility]2018-04-17 00:37:00 Test Item Value Reference Range Interpretation Comments Bili Total (test code = Bili Total) 0.4 0.2-1.3 [facility]2018-04-17 00:37:00 Test Item Value Reference Range Interpretation Comments Potassium Lvl (test code = Potassium 4.4 3.5-5.1 Lvl) [facility]2018-04-17 00:37:00 Test Item Value Reference Range Interpretation Comments Calcium Lvl (test code = Calcium Lvl) 6.7 8.5-10.5 [facility]2018-04-17 00:37:00 Test Item Value Reference Range Interpretation Comments Sodium Lvl (test code = Sodium Lvl) 130 135-145 [facility]2018-04-17 00:37:00 Test Item Value Reference Range Interpretation Comments Creatinine Lvl (test code = Creatinine 11.00 0.50-1.40 Lvl) [facility]2018-04-17 00:37:00 Test Item Value Reference Range Interpretation Comments AGAP (test code = AGAP) 17.4 10.0-20.0 [facility]2018-04-17 00:37:00 Test Item Value Reference Range Interpretation Comments CO2 (test code = CO2) 25 24-32 [facility]2018-04-17 00:37:00 Test Item Value Reference Range Interpretation Comments Chloride Lvl (test code = Chloride Lvl) 92 95-109 [facility]2018-04-17 00:37:00 Test Item Value Reference Range Interpretation Comments Albumin Lvl (test code = Albumin Lvl) 3.4 3.5-5.0 [facility]2018-04-17 00:37:00 Test Item Value Reference Range Interpretation Comments Total Protein (test code = Total 7.4 6.4-8.4 Protein) [facility]2018-04-17 00:37:00 Test Item Value Reference Range Interpretation Comments B/C Ratio (test code = B/C Ratio) 8 1 6-25 [facility]2018-04-17 00:37:00 Test Item Value Reference Range Interpretation Comments BUN (test code = BUN) 84 7-22 [facility]2018-04-17 00:37:00 Test Item Value Reference Range Interpretation Comments Glucose Lvl (test code = Glucose Lvl) 123 70-99 [facility] CentralXphwbqhGLIYYAFHUB9834-18-88 00:37:00 Test Item Value Reference Range Interpretation Comments Lymphocytes (test code = Lymphocytes) 21.5 20.0-40.0 [facility] CentralDkfwruvIWUYBOTAVD2450-70-72 00:37:00 Test Item Value Reference Range Interpretation Comments Lymphocytes # (test code = Lymphocytes 1.6 1.0-5.5 #) [facility] CentralZjgngyaNHBLCSRDWS0703-59-15 00:37:00 Test Item Value Reference Range Interpretation Comments Eosinophils # (test code 0.3 See_Comment [A utomated message] The = Eosinophils #) system whic h generated this result tra nsmitted reference range : <=0.5. The reference r yared was not used to int erpret this result as normal/abnormal . [facility] CentralViczynpQGZNFZTNMG8837-33-25 00:37:00 Test Item Value Reference Range Interpretation Comments Segs (test code = Segs) 63.7 45.0-75.0 [facility] CentralStfghlbLMMQJZRFAH1906-73-76 00:37:00 Test Item Value Reference Range Interpretation Comments Segs-Bands # (test code = Segs-Bands #) 4.8 1.5-8.1 [facility] CentralAjmbtacPHDZXGBNGN2183-46-49 00:37:00 Test Item Value Reference Range Interpretation Comments Eosinophils (test code = 3.5 See_Comment [A utomated message] The Eosinophils) system which ge nerated this result tra nsmitted reference range : <=4.0. The reference r yared was not used to int erpret this result as normal/abnormal . [facility] CentralFedzsfhYSAOGOVKMA7402-64-13 00:37:00 Test Item Value Reference Range Interpretation Comments Monocytes (test code = Monocytes) 10.4 2.0-12.0 [facility] CentralOeqkpwhQVIFUOMFDO3628-66-86 00:37:00 Test Item Value Reference Range Interpretation Comments Basophils (test code = 0.9 See_Comment [Aut omated message] The Basophils) system which ge nerated this result tra nsmitted reference range : <=1.0. The reference r yared was not used to int erpret this result as normal/abnormal . [facility] CentralWylkazvWKKPRQCDIH8052-19-88 00:37:00 Test Item Value Reference Range Interpretation Comments Basophils # (test code 0.1 See_Comment [Aut omated message] The = Basophils #) system which generated this result tra nsmitted reference range : <=0.2. The reference r yared was not used to int erpret this result as normal/abnormal . [facility] CentralQikzzawRWLOLOJVCU6910-26-66 00:37:00 Test Item Value Reference Range Interpretation Comments Monocytes # (test code 0.8 See_Comment [Aut omated message] The = Monocytes #) system which generated this result tra nsmitted reference range : <=0.8. The reference r yared was not used to int erpret this result as normal/abnormal . [facility] CentralXdzxzvxKOPZBGTPRL5983-94-35 00:37:00 Test Item Value Reference Range Interpretation Comments INR (test code = INR) 1.06 1 0.85-1.17 [facility] CentralNalfegvEZOXPMRXCJ5535-42-40 00:37:00 Test Item Value Reference Range Interpretation Comments PT (test code = PT) 13.8 s 12.0-14.7 [facility] CentralQaepeobHFDBTSYGVV1843-91-93 00:37:00 Test Item Value Reference Range Interpretation Comments PTT (test code = PTT) 35.7 s 22.9-35.8 [facility] CentralOuuqulkONVROFNLFP6102-59-70 00:37:00 Test Item Value Reference Range Interpretation Comments Platelet (test code = Platelet) 238 133-450 [facility] CentralJhyjhprFSCMQKVHKN3328-53-85 00:37:00 Test Item Value Reference Range Interpretation Comments MPV (test code = MPV) 7.5 7.4-10.4 [facility] CentralHmvxvigTSRVCDKUTK0095-50-81 00:37:00 Test Item Value Reference Range Interpretation Comments Hct (test code = Hct) 25.4 42.0-54.0 [facility] CentralGiymjlhQTBDIBGRKR9271-61-67 00:37:00 Test Item Value Reference Range Interpretation Comments MCV (test code = MCV) 80.3 80.0-94.0 [facility] CentralNdxxyboALDUZADHBM5211-32-81 00:37:00 Test Item Value Reference Range Interpretation Comments MCH (test code = MCH) 28.2 pg 27.0-31.0 [facility] CentralCninhxcEYSKUIMELO6038-54-01 00:37:00 Test Item Value Reference Range Interpretation Comments Hgb (test code = Hgb) 8.9 14.0-18.0 [facility] CentralMbykdaxKJQEILKZJY3121-36-90 00:37:00 Test Item Value Reference Range Interpretation Comments MCHC (test code = MCHC) 35.1 32.0-36.0 [facility] CentralClblpftADPOHWNJDA1056-04-51 00:37:00 Test Item Value Reference Range Interpretation Comments RDW (test code = RDW) 13.9 11.5-14.5 [facility] CentralAfcucabFYGEZOPLDV1543-88-19 00:37:00 Test Item Value Reference Range Interpretation Comments WBC (test code = WBC) 7.6 3.7-10.4 [facility] CentralAucvpxbGWOKMHBAVT4395-70-51 00:37:00 Test Item Value Reference Range Interpretation Comments RBC (test code = RBC) 3.16 4.70-6.10 [facility] AND [id number] 00:37:00 Test Item Value Reference Range Interpretation Comments UA Urobilinogen (test code = UA <=1.0 mg/dL 0.1-1.0 Urobilinogen) [facility] AND [id number] 00:37:00 Test Item Value Reference Range Interpretation Comments UA Glucose (test code = UA Glucose) 50 [facility] AND [id number] 00:37:00 Test Item Value Reference Range Interpretation Comments UA Color (test code = UA Color) STRAW [facility] AND [id number] 00:37:00 Test Item Value Reference Range Interpretation Comments UA Sq Epi (test code = UA Sq Epi) Few /LPF [facility] AND [id number] 00:37:00 Test Item Value Reference Range Interpretation Comments UA WBC (test code = 8 See_Comment [Automa emerson message] The UA WBC) system which ge nerated this result transmit emerson reference range : <=5. The reference range was not used to interpr et this result as erinn l/abnormal. [facility] AND [id number] 00:37:00 Test Item Value Reference Range Interpretation Comments UA Mucus (test code = UA Mucus) Few /LPF [facility] AND [id number] 00:37:00 Test Item Value Reference Range Interpretation Comments UA Bacteria (test code = UA Moderate /HPF Bacteria) [facility] AND [id number] 00:37:00 Test Item Value Reference Range Interpretation Comments UA Leuk Est (test code Small *ABN*(01/22/18 = UA Leuk Est) 7:37 PM) [facility] AND [id number] 00:37:00 Test Item Value Reference Range Interpretation Comments UA Protein (test code = UA >=300 mg/dL Protein) [facility] AND [id number] 00:37:00 Test Item Value Reference Range Interpretation Comments UA Ketones (test code = UA Negative mg/dL Ketones) [facility] AND [id number] 00:37:00 Test Item Value Reference Range Interpretation Comments UA pH (test code = UA pH) 6.0 1 5.0-8.0 [facility] AND [id number] 00:37:00 Test Item Value Reference Range Interpretation Comments UA Turbidity (test code = Clear (01/22/18 7:37 UA Turbidity) PM) [facility] AND [id number] 00:37:00 Test Item Value Reference Range Interpretation Comments UA Spec Grav (test code = UA Spec 1.005 1 Grav) [facility] AND [id number] 00:37:00 Test Item Value Reference Range Interpretation Comments UA Nitrite (test code Negative (01/22/18 7:37 = UA Nitrite) PM) [facility] AND [id number] 00:37:00 Test Item Value Reference Range Interpretation Comments UA Blood (test code = Small *ABN*(01/22/18 UA Blood) 7:37 PM) [facility] AND [id number] 00:37:00 Test Item Value Reference Range Interpretation Comments UA Bili (test code = Negative *NA*(01/22/18 UA Bili) 7:37 PM) [facility] [employer] [id number] 00:37:00 Test Item Value Reference Range Interpretation Comments CK MB Index (test 1.7 1 See_Comment [Automate d message] The code = CK MB Index) system w [facility] generated this result transmit emerson reference range : <=2.5. The reference range was not used to interpr et this result as ernin l/abnormal. [facility] [employer] [id number] 00:37:00 Test Item Value Reference Range Interpretation Comments CK MB (test code = CK MB) 2.9 0.5-3.[address] [facility] [employer] [id number] 00:37:00 Test Item Value Reference Range Interpretation Comments Troponin-I (test code no gt See_Comment [Auto mated message] The = Troponin-I) system which g enerated this result transmit emerson reference range : <=0.40. The reference r yared was not used to interpr et this result as erinn l/abnormal. [facility] [employer] [id number] 00:37:00 Test Item Value Reference Range Interpretation Comments Total CK (test code = Total CK) 166 12-[address] [facility] [employer] [id number] 00:37:00 Test Item Value Reference Range Interpretation Comments proBNP (test code = 4827 See_Comment [Automa emerson message] The proBNP) system which ge nerated this result tra nsmitted reference range : <=125. The reference r yared was not used to int erpret this result as erinn l/abnormal. [employer] [id number] 00:37:00 Test Item Value Reference Range Interpretation Comments Magnesium Lvl (test code = Magnesium 1.9 1.8-2.4 Lvl) [facility] [employer] [id number] 00:37:00 Test Item Value Reference Range Interpretation Comments Phosphorus (test code = Phosphorus) 9.1 2.5-4.[address] [facility] [employer] [id number] 00:37:00 Test Item Value Reference Range Interpretation Comments eGFR (test code = eGFR) [address] [facility] [employer] [id number] 00:37:00 Test Item Value Reference Range Interpretation Comments Alk Phos (test code = Alk Phos) 115 39-[address] [facility] [employer] [id number] 00:37:00 Test Item Value Reference Range Interpretation Comments AST (test code = AST) 23 See_Comment [Auto mated message] The system which ge nerated this result transmit emerson reference range : <=37. The reference range was not used to interpr et this result as erinn l/abnormal. [facility] [id number] 00:37:00 Test Item Value Reference Range Interpretation Comments ALT (test code = ALT) 24 See_Comment [Auto mated message] The system which ge nerated this result transmit emerson reference range : <=65. The reference range was not used to interpr et this result as erinn l/abnormal. [facility] [id number] 00:37:00 Test Item Value Reference Range Interpretation Comments A/G Ratio (test code = A/G Ratio) 0.8 1 0.7-1.6 [facility] [id number] 00:37:00 Test Item Value Reference Range Interpretation Comments Globulin (test code = Globulin) 4.0 2.7-4.2 [facility] [id number] 00:37:00 Test Item Value Reference Range Interpretation Comments Bili Total (test code = Bili Total) 0.4 0.2-1.3 [facility] [id number] 00:37:00 Test Item Value Reference Range Interpretation Comments Potassium Lvl (test code = Potassium 4.4 3.5-5.1 Lvl) [facility] [id number] 00:37:00 Test Item Value Reference Range Interpretation Comments Calcium Lvl (test code = Calcium Lvl) 6.7 8.5-10.5 [facility] [id number] 00:37:00 Test Item Value Reference Range Interpretation Comments Sodium Lvl (test code = Sodium Lvl) 130 135-145 [facility] [id number] 00:37:00 Test Item Value Reference Range Interpretation Comments Creatinine Lvl (test code = Creatinine 11.00 0.50-1.40 Lvl) [facility] [id number] 00:37:00 Test Item Value Reference Range Interpretation Comments AGAP (test code = AGAP) 17.4 10.0-20.0 [facility] [id number] 00:37:00 Test Item Value Reference Range Interpretation Comments CO2 (test code = CO2) 25 24-32 [facility]2018-04-17 00:37:00 Test Item Value Reference Range Interpretation Comments Chloride Lvl (test code = Chloride Lvl) 92 95-109 [facility]2018-04-17 00:37:00 Test Item Value Reference Range Interpretation Comments Albumin Lvl (test code = Albumin Lvl) 3.4 3.5-5.0 [facility]2018-04-17 00:37:00 Test Item Value Reference Range Interpretation Comments Total Protein (test code = Total 7.4 6.4-8.4 Protein) [facility]2018-04-17 00:37:00 Test Item Value Reference Range Interpretation Comments B/C Ratio (test code = B/C Ratio) 8 1 6-25 [place] [id number] 00:37:00 Test Item Value Reference Range Interpretation Comments BUN (test code = BUN) 84 7-22 [facility]2018-04-17 00:37:00 Test Item Value Reference Range Interpretation Comments Glucose Lvl (test code = Glucose Lvl) 123 70-99 [facility]KbfrwspVBSBBDLFJY1322-39-12 00:37:00 Test Item Value Reference Range Interpretation Comments Lymphocytes (test code = Lymphocytes) 21.5 20.0-40.0 [facility] [id number] 00:37:00 Test Item Value Reference Range Interpretation Comments Lymphocytes # (test code = Lymphocytes 1.6 1.0-5.5 #) [facility] [id number] 00:37:00 Test Item Value Reference Range Interpretation Comments Eosinophils # (test code 0.3 See_Comment [A utomated message] The = Eosinophils #) system whic h generated this result tra nsmitted reference range : <=0.5. The reference r yared was not used to int erpret this result as normal/abnormal . [facility] [id number] 00:37:00 Test Item Value Reference Range Interpretation Comments Segs (test code = Segs) 63.7 45.0-75.0 [facility] CentralHopqcybXWNGGHAPIY6844-92-53 00:37:00 Test Item Value Reference Range Interpretation Comments Segs-Bands # (test code = Segs-Bands #) 4.8 1.5-8.1 [facility] CentralXmaclxvZCWBMZFCUI3082-07-68 00:37:00 Test Item Value Reference Range Interpretation Comments Eosinophils (test code = 3.5 See_Comment [A utomated message] The Eosinophils) system which ge nerated this result tra nsmitted reference range : <=4.0. The reference r yared was not used to int erpret this result as normal/abnormal . [facility] CentralGodnfblNJXMADWBQY1892-63-80 00:37:00 Test Item Value Reference Range Interpretation Comments Monocytes (test code = Monocytes) 10.4 2.0-12.0 [facility] CentralHvsynptRSGFXNMSEV1150-00-93 00:37:00 Test Item Value Reference Range Interpretation Comments Basophils (test code = 0.9 See_Comment [Aut omated message] The Basophils) system which ge nerated this result tra nsmitted reference range : <=1.0. The reference r yared was not used to int erpret this result as normal/abnormal . [facility] CentralQjmztbaJWYGTBVVCZ9065-26-75 00:37:00 Test Item Value Reference Range Interpretation Comments Basophils # (test code 0.1 See_Comment [Aut omated message] The = Basophils #) system which generated this result tra nsmitted reference range : <=0.2. The reference r yared was not used to int erpret this result as normal/abnormal . [facility] CentralQhiokgdYBLWKJZNFI8065-05-12 00:37:00 Test Item Value Reference Range Interpretation Comments Monocytes # (test code 0.8 See_Comment [Aut omated message] The = Monocytes #) system which generated this result tra nsmitted reference range : <=0.8. The reference r yared was not used to int erpret this result as normal/abnormal . [facility] CentralSgxdnjjQYEQZLOLYO5596-47-22 00:37:00 Test Item Value Reference Range Interpretation Comments INR (test code = INR) 1.06 1 0.85-1.17 [facility] CentralRizdjgxKKSLUEZMRW9313-03-98 00:37:00 Test Item Value Reference Range Interpretation Comments PT (test code = PT) 13.8 s 12.0-14.7 [facility] CentralNpzdmxjBQRLLAHWLF1249-80-27 00:37:00 Test Item Value Reference Range Interpretation Comments PTT (test code = PTT) 35.7 s 22.9-35.8 [facility] CentralQblmcssJGWNLDAVPD5711-64-23 00:37:00 Test Item Value Reference Range Interpretation Comments Platelet (test code = Platelet) 238 133-450 [facility] CentralFmamuwpJLXWWLDPGX3530-69-24 00:37:00 Test Item Value Reference Range Interpretation Comments MPV (test code = MPV) 7.5 7.4-10.4 [facility] CentralFjftbxfOGUJUGOIOZ5237-66-26 00:37:00 Test Item Value Reference Range Interpretation Comments Hct (test code = Hct) 25.4 42.0-54.0 [facility] CentralIiqlgvhWNTMJPPMAG5563-65-62 00:37:00 Test Item Value Reference Range Interpretation Comments MCV (test code = MCV) 80.3 80.0-94.0 [facility] CentralZwodwraARQPLAUZRK5597-07-52 00:37:00 Test Item Value Reference Range Interpretation Comments MCH (test code = MCH) 28.2 pg 27.0-31.0 [facility] CentralOiyygqhKLWSSAIKCR6590-81-67 00:37:00 Test Item Value Reference Range Interpretation Comments Hgb (test code = Hgb) 8.9 14.0-18.0 [facility] CentralZsrjcctBDORCVJYUP4428-93-76 00:37:00 Test Item Value Reference Range Interpretation Comments MCHC (test code = MCHC) 35.1 32.0-36.0 [facility] CentralNubrkcqRZCGWXXZHB2111-53-41 00:37:00 Test Item Value Reference Range Interpretation Comments RDW (test code = RDW) 13.9 11.5-14.5 [facility] CentralGlipqikEXXRLMCFNM3587-74-71 00:37:00 Test Item Value Reference Range Interpretation Comments WBC (test code = WBC) 7.6 3.7-10.4 [facility] CentralXkfoohgYCGQTIJWGE8993-95-37 00:37:00 Test Item Value Reference Range Interpretation Comments RBC (test code = RBC) 3.16 4.70-6.10 [facility]2018-04-17 00:37:00 Test Item Value Reference Range Interpretation Comments UA Urobilinogen (test code = UA <=1.0 mg/dL 0.1-1.0 Urobilinogen) [facility] AND [id number] 00:37:00 Test Item Value Reference Range Interpretation Comments UA Glucose (test code = UA Glucose) 50 [facility]2018-04-17 00:37:00 Test Item Value Reference Range Interpretation Comments UA Color (test code = UA Color) STRAW [facility] AND [id number] 00:37:00 Test Item Value Reference Range Interpretation Comments UA Sq Epi (test code = UA Sq Epi) Few /LPF [facility] AND [id number] 00:37:00 Test Item Value Reference Range Interpretation Comments UA WBC (test code = 8 See_Comment [Automa emerson message] The UA WBC) system which ge nerated this result transmit emerson reference range : <=5. The reference range was not used to interpr et this result as erinn l/abnormal. [facility] AND [id number] 00:37:00 Test Item Value Reference Range Interpretation Comments UA Mucus (test code = UA Mucus) Few /LPF [facility] AND [id number] 00:37:00 Test Item Value Reference Range Interpretation Comments UA Bacteria (test code = UA Moderate /HPF Bacteria) [facility] AND [id number] 00:37:00 Test Item Value Reference Range Interpretation Comments UA Leuk Est (test code Small *ABN*(01/22/18 = UA Leuk Est) 7:37 PM) [facility] AND [id number] 00:37:00 Test Item Value Reference Range Interpretation Comments UA Protein (test code = UA >=300 mg/dL Protein) [facility] AND [id number] 00:37:00 Test Item Value Reference Range Interpretation Comments UA Ketones (test code = UA Negative mg/dL Ketones) [facility] AND [id number] 00:37:00 Test Item Value Reference Range Interpretation Comments UA pH (test code = UA pH) 6.0 1 5.0-8.0 [facility] AND [id number] 00:37:00 Test Item Value Reference Range Interpretation Comments UA Turbidity (test code = Clear (01/22/18 7:37 UA Turbidity) PM) [facility] AND [id number] 00:37:00 Test Item Value Reference Range Interpretation Comments UA Spec Grav (test code = UA Spec 1.005 1 Grav) [facility] AND [id number] 00:37:00 Test Item Value Reference Range Interpretation Comments UA Nitrite (test code Negative (01/22/18 7:37 = UA Nitrite) PM) [facility] AND [id number] 00:37:00 Test Item Value Reference Range Interpretation Comments UA Blood (test code = Small *ABN*(01/22/18 UA Blood) 7:37 PM) [facility] AND [id number] 00:37:00 Test Item Value Reference Range Interpretation Comments UA Bili (test code = Negative *NA*(01/22/18 UA Bili) 7:37 PM) [facility]2018-03-14 10:09:00 Test Item Value Reference Range Interpretation Comments Magnesium Lvl (test code = Magnesium 1.8 1.8-2.4 Lvl) [facility]2018-03-14 10:09:00 Test Item Value Reference Range Interpretation Comments eGFR (test code = eGFR) 4 [facility]2018-03-14 10:09:00 Test Item Value Reference Range Interpretation Comments Creatinine Lvl (test code = Creatinine 11.60 0.50-1.40 Lvl) [facility]2018-03-14 10:09:00 Test Item Value Reference Range Interpretation Comments Calcium Lvl (test code = Calcium Lvl) 6.9 8.5-10.5 [facility]2018-03-14 10:09:00 Test Item Value Reference Range Interpretation Comments CO2 (test code = CO2) 27 24-32 [facility]2018-03-14 10:09:00 Test Item Value Reference Range Interpretation Comments Sodium Lvl (test code = Sodium Lvl) 133 135-145 [facility]2018-03-14 10:09:00 Test Item Value Reference Range Interpretation Comments Chloride Lvl (test code = Chloride Lvl) 94 95-109 [facility]2018-03-14 10:09:00 Test Item Value Reference Range Interpretation Comments Potassium Lvl (test code = Potassium 3.7 3.5-5.1 Lvl) [facility]2018-03-14 10:09:00 Test Item Value Reference Range Interpretation Comments BUN (test code = BUN) 104 7-22 [facility]2018-03-14 10:09:00 Test Item Value Reference Range Interpretation Comments Glucose Lvl (test code = Glucose Lvl) 85 70-99 [facility]2018-03-14 10:09:00 Test Item Value Reference Range Interpretation Comments AGAP (test code = AGAP) 15.7 10.0-20.0 [facility] CentralKrnlqkxLNCKEQTWPP3223-41-04 10:09:00 Test Item Value Reference Range Interpretation Comments Eosinophils # (test code 0.2 See_Comment [A utomated message] The = Eosinophils #) system whic h generated this result tra nsmitted reference range : <=0.5. The reference r yared was not used to int erpret this result as normal/abnormal . [facility] CentralWdfxcyvEUJFNCJJXL6423-05-28 10:09:00 Test Item Value Reference Range Interpretation Comments Monocytes # (test code 0.6 See_Comment [Aut omated message] The = Monocytes #) system which generated this result tra nsmitted reference range : <=0.8. The reference r yared was not used to int erpret this result as normal/abnormal . [facility] CentralOtjxjdzJCEJKVILIS7403-24-15 10:09:00 Test Item Value Reference Range Interpretation Comments Microcyte (test code = 1+ *ABN*(12/20/17 Microcyte) 5:09 AM) [facility] CentralZqaonmfQSFIQDPBQN0266-89-73 10:09:00 Test Item Value Reference Range Interpretation Comments Segs (test code = Segs) 71.0 45.0-75.0 [facility] CentralLhesrpoSTQGFOPKUO8158-21-18 10:09:00 Test Item Value Reference Range Interpretation Comments Lymphocytes # (test code = Lymphocytes 1.0 1.0-5.5 #) [facility] CentralJcnjlpoGMHCKFDAPB4372-86-63 10:09:00 Test Item Value Reference Range Interpretation Comments Basophils (test code = 0.8 See_Comment [Aut omated message] The Basophils) system which ge nerated this result tra nsmitted reference range : <=1.0. The reference r yared was not used to int erpret this result as normal/abnormal . [facility] CentralSrbjbxoVFGBWXDYDU5806-79-97 10:09:00 Test Item Value Reference Range Interpretation Comments Segs-Bands # (test code = Segs-Bands #) 4.6 1.5-8.1 [facility] CentralHbzwpbvTCCZQTKIMI4430-67-63 10:09:00 Test Item Value Reference Range Interpretation Comments Lymphocytes (test code = Lymphocytes) 15.7 20.0-40.0 [facility] CentralChzyydpCYAMRZCYPV6225-74-93 10:09:00 Test Item Value Reference Range Interpretation Comments Eosinophils (test code = 3.1 See_Comment [A utomated message] The Eosinophils) system which ge nerated this result tra nsmitted reference range : <=4.0. The reference r yared was not used to int erpret this result as normal/abnormal . [facility] CentralUjqxyduLGBHLUOSNP6005-00-41 10:09:00 Test Item Value Reference Range Interpretation Comments Monocytes (test code = Monocytes) 9.4 2.0-12.0 [facility] CentralOlkflhrXJTYUBKMXB5905-11-83 10:09:00 Test Item Value Reference Range Interpretation Comments Platelet (test code = Platelet) 193 133-450 [facility] CentralPbtzvtjGPBIPUOCVQ2388-50-70 10:09:00 Test Item Value Reference Range Interpretation Comments MCV (test code = MCV) 77.5 80.0-94.0 [facility] CentralYmhavhcGZRJZVWUCQ4918-81-27 10:09:00 Test Item Value Reference Range Interpretation Comments MCHC (test code = MCHC) 35.5 32.0-36.0 [facility] CentralHbywdswWOSBCUPWTH4417-57-41 10:09:00 Test Item Value Reference Range Interpretation Comments MCH (test code = MCH) 27.5 pg 27.0-31.0 [facility] CentralDpumjahKVNYEVZNED3568-08-73 10:09:00 Test Item Value Reference Range Interpretation Comments RDW (test code = RDW) 14.1 11.5-14.5 [facility] CentralRuskhgyUFSDVNLKDY1123-75-35 10:09:00 Test Item Value Reference Range Interpretation Comments MPV (test code = MPV) 7.7 7.4-10.4 [facility] CentralRdwhfmoKOYCCUCTYZ5199-68-40 10:09:00 Test Item Value Reference Range Interpretation Comments Hct (test code = Hct) 23.5 42.0-54.0 [facility] CentralAgjrirhASDSOUKUTG6088-98-77 10:09:00 Test Item Value Reference Range Interpretation Comments Hgb (test code = Hgb) 8.4 14.0-18.0 [facility] CentralZstetnjXEFWLLEEGP3475-28-82 10:09:00 Test Item Value Reference Range Interpretation Comments RBC (test code = RBC) 3.03 4.70-6.10 [facility] CentralSkvxgyjMKXCSUWHPQ3857-49-54 10:09:00 Test Item Value Reference Range Interpretation Comments WBC (test code = WBC) 6.5 3.7-10.4 [facility] [id number] 10:09:00 Test Item Value Reference Range Interpretation Comments Ca Norm WB (test code = Ca Norm WB) 0.86 1.05-1.25 [facility] [id number] 10:09:00 Test Item Value Reference Range Interpretation Comments Ca Ion WB (test code = Ca Ion WB) 0.86 1.05-1.25 [facility]2018-03-14 10:09:00 Test Item Value Reference Range Interpretation Comments Magnesium Lvl (test code = Magnesium 1.8 1.8-2.4 Lvl) [facility]2018-03-14 10:09:00 Test Item Value Reference Range Interpretation Comments eGFR (test code = eGFR) 4 [facility]2018-03-14 10:09:00 Test Item Value Reference Range Interpretation Comments Creatinine Lvl (test code = Creatinine 11.60 0.50-1.40 Lvl) [facility]2018-03-14 10:09:00 Test Item Value Reference Range Interpretation Comments Calcium Lvl (test code = Calcium Lvl) 6.9 8.5-10.5 [facility]2018-03-14 10:09:00 Test Item Value Reference Range Interpretation Comments CO2 (test code = CO2) 27 24-32 [facility]2018-03-14 10:09:00 Test Item Value Reference Range Interpretation Comments Sodium Lvl (test code = Sodium Lvl) 133 135-145 [facility]2018-03-14 10:09:00 Test Item Value Reference Range Interpretation Comments Chloride Lvl (test code = Chloride Lvl) 94 95-109 [facility]2018-03-14 10:09:00 Test Item Value Reference Range Interpretation Comments Potassium Lvl (test code = Potassium 3.7 3.5-5.1 Lvl) [facility]2018-03-14 10:09:00 Test Item Value Reference Range Interpretation Comments BUN (test code = BUN) 104 7-22 [facility]2018-03-14 10:09:00 Test Item Value Reference Range Interpretation Comments Glucose Lvl (test code = Glucose Lvl) 85 70-99 [facility]2018-03-14 10:09:00 Test Item Value Reference Range Interpretation Comments AGAP (test code = AGAP) 15.7 10.0-20.0 [facility] CentralAucmzlfPEDMPUFQPC2729-08-00 10:09:00 Test Item Value Reference Range Interpretation Comments Eosinophils # (test code 0.2 See_Comment [A utomated message] The = Eosinophils #) system whic h generated this result tra nsmitted reference range : <=0.5. The reference r yared was not used to int erpret this result as normal/abnormal . [facility] CentralJzyiapyEECNMFHFVQ8236-31-48 10:09:00 Test Item Value Reference Range Interpretation Comments Monocytes # (test code 0.6 See_Comment [Aut omated message] The = Monocytes #) system which generated this result tra nsmitted reference range : <=0.8. The reference r yared was not used to int erpret this result as normal/abnormal . [facility] CentralQrhboquSNDGRMCWSV1053-16-99 10:09:00 Test Item Value Reference Range Interpretation Comments Microcyte (test code = 1+ *ABN*(12/20/17 Microcyte) 5:09 AM) [facility] CentralUbklpbcOJHSDNRLAB1582-02-73 10:09:00 Test Item Value Reference Range Interpretation Comments Segs (test code = Segs) 71.0 45.0-75.0 [facility] CentralDwydxieQQQMVBDPKE7598-65-59 10:09:00 Test Item Value Reference Range Interpretation Comments Lymphocytes # (test code = Lymphocytes 1.0 1.0-5.5 #) [facility] CentralQxsvzjaQHPOQWIOST1529-95-10 10:09:00 Test Item Value Reference Range Interpretation Comments Basophils (test code = 0.8 See_Comment [Aut omated message] The Basophils) system which ge nerated this result tra nsmitted reference range : <=1.0. The reference r yared was not used to int erpret this result as normal/abnormal . [facility] CentralSqqzwltCQYTCDZBAM4026-25-82 10:09:00 Test Item Value Reference Range Interpretation Comments Segs-Bands # (test code = Segs-Bands #) 4.6 1.5-8.1 [facility] CentralOxhysoxYYXARWSWQI5546-48-05 10:09:00 Test Item Value Reference Range Interpretation Comments Lymphocytes (test code = Lymphocytes) 15.7 20.0-40.0 [facility] CentralEivrcuuRQQYDVCQIP1417-21-71 10:09:00 Test Item Value Reference Range Interpretation Comments Eosinophils (test code = 3.1 See_Comment [A utomated message] The Eosinophils) system which ge nerated this result tra nsmitted reference range : <=4.0. The reference r yared was not used to int erpret this result as normal/abnormal . [facility] CentralKdedeiqVDOBTLVCMG8734-03-86 10:09:00 Test Item Value Reference Range Interpretation Comments Monocytes (test code = Monocytes) 9.4 2.0-12.0 [facility] CentralRasqcpzZOTDJXFSZZ6850-21-53 10:09:00 Test Item Value Reference Range Interpretation Comments Platelet (test code = Platelet) 193 133-450 [facility] CentralWzoeiuzIPCZQUQCBM5506-92-10 10:09:00 Test Item Value Reference Range Interpretation Comments MCV (test code = MCV) 77.5 80.0-94.0 [facility] CentralQwwngxpUIGDQWSDUF6267-60-74 10:09:00 Test Item Value Reference Range Interpretation Comments MCHC (test code = MCHC) 35.5 32.0-36.0 [facility] CentralDbgpndsALZIIHBTVJ5176-18-96 10:09:00 Test Item Value Reference Range Interpretation Comments MCH (test code = MCH) 27.5 pg 27.0-31.0 [facility] CentralRabpydxJTUZMYWILC4463-32-96 10:09:00 Test Item Value Reference Range Interpretation Comments RDW (test code = RDW) 14.1 11.5-14.5 [facility] CentralTtwznwnZVTPFHFGST7887-63-59 10:09:00 Test Item Value Reference Range Interpretation Comments MPV (test code = MPV) 7.7 7.4-10.4 [facility] CentralDjymponKEQYRIDLSU6543-01-61 10:09:00 Test Item Value Reference Range Interpretation Comments Hct (test code = Hct) 23.5 42.0-54.0 [facility] CentralUogdwlrOMZWTJACOM7151-36-76 10:09:00 Test Item Value Reference Range Interpretation Comments Hgb (test code = Hgb) 8.4 14.0-18.0 [facility] CentralQljfisfLBUKYKJKSI5191-77-22 10:09:00 Test Item Value Reference Range Interpretation Comments RBC (test code = RBC) 3.03 4.70-6.10 [facility]FzheyzsSGCDVRLTZL2986-93-52 10:09:00 Test Item Value Reference Range Interpretation Comments WBC (test code = WBC) 6.5 3.7-10.4 [facility] [id number] 10:09:00 Test Item Value Reference Range Interpretation Comments Ca Norm WB (test code = Ca Norm WB) 0.86 1.05-1.25 [facility]2018-03-14 10:09:00 Test Item Value Reference Range Interpretation Comments Ca Ion WB (test code = Ca Ion WB) 0.86 1.05-1.25 [facility]2018-03-14 10:09:00 Test Item Value Reference Range Interpretation Comments Magnesium Lvl (test code = Magnesium 1.8 1.8-2.4 Lvl) [facility]2018-03-14 10:09:00 Test Item Value Reference Range Interpretation Comments eGFR (test code = eGFR) 4 [facility]2018-03-14 10:09:00 Test Item Value Reference Range Interpretation Comments Creatinine Lvl (test code = Creatinine 11.60 0.50-1.40 Lvl) [facility]2018-03-14 10:09:00 Test Item Value Reference Range Interpretation Comments Calcium Lvl (test code = Calcium Lvl) 6.9 8.5-10.5 [facility]2018-03-14 10:09:00 Test Item Value Reference Range Interpretation Comments CO2 (test code = CO2) 27 24-32 [facility]2018-03-14 10:09:00 Test Item Value Reference Range Interpretation Comments Sodium Lvl (test code = Sodium Lvl) 133 135-145 [facility]2018-03-14 10:09:00 Test Item Value Reference Range Interpretation Comments Chloride Lvl (test code = Chloride Lvl) 94 95-109 [facility]2018-03-14 10:09:00 Test Item Value Reference Range Interpretation Comments Potassium Lvl (test code = Potassium 3.7 3.5-5.1 Lvl) [facility]2018-03-14 10:09:00 Test Item Value Reference Range Interpretation Comments BUN (test code = BUN) 104 7-22 [facility]2018-03-14 10:09:00 Test Item Value Reference Range Interpretation Comments Glucose Lvl (test code = Glucose Lvl) 85 70-99 [facility]2018-03-14 10:09:00 Test Item Value Reference Range Interpretation Comments AGAP (test code = AGAP) 15.7 10.0-20.0 [facility] CentralQeseiinGEVOAOBSHF7506-54-07 10:09:00 Test Item Value Reference Range Interpretation Comments Eosinophils # (test code 0.2 See_Comment [A utomated message] The = Eosinophils #) system whic h generated this result tra nsmitted reference range : <=0.5. The reference r yaerd was not used to int erpret this result as normal/abnormal . [facility] CentralFarpyrcNOHJXBAFCS7501-72-85 10:09:00 Test Item Value Reference Range Interpretation Comments Monocytes # (test code 0.6 See_Comment [Aut omated message] The = Monocytes #) system which generated this result tra nsmitted reference range : <=0.8. The reference r yared was not used to int erpret this result as normal/abnormal . [facility] CentralIgpoagxYEHCVAZQLI4796-72-96 10:09:00 Test Item Value Reference Range Interpretation Comments Microcyte (test code = 1+ *ABN*(12/20/17 Microcyte) 5:09 AM) [facility] CentralSzudzivRGHNOMGDWS8376-05-77 10:09:00 Test Item Value Reference Range Interpretation Comments Segs (test code = Segs) 71.0 45.0-75.0 [facility] CentralAkefnxcKGVKFDDGTC0655-65-12 10:09:00 Test Item Value Reference Range Interpretation Comments Lymphocytes # (test code = Lymphocytes 1.0 1.0-5.5 #) [facility] CentralBxhcepnDONQAHRSTW3600-99-47 10:09:00 Test Item Value Reference Range Interpretation Comments Basophils (test code = 0.8 See_Comment [Aut omated message] The Basophils) system which ge nerated this result tra nsmitted reference range : <=1.0. The reference r yared was not used to int erpret this result as normal/abnormal . [facility] CentralVfrylrrKFGFKUWRJI8903-18-90 10:09:00 Test Item Value Reference Range Interpretation Comments Segs-Bands # (test code = Segs-Bands #) 4.6 1.5-8.1 [facility] CentralJufmqquQKSEGLDJRH9042-56-13 10:09:00 Test Item Value Reference Range Interpretation Comments Lymphocytes (test code = Lymphocytes) 15.7 20.0-40.0 [facility] CentralUrtkfuhUXNNHPLMTG2756-73-78 10:09:00 Test Item Value Reference Range Interpretation Comments Eosinophils (test code = 3.1 See_Comment [A utomated message] The Eosinophils) system which ge nerated this result tra nsmitted reference range : <=4.0. The reference r yared was not used to int erpret this result as normal/abnormal . [facility] CentralGgnmjleTABGMSVXEL8618-49-04 10:09:00 Test Item Value Reference Range Interpretation Comments Monocytes (test code = Monocytes) 9.4 2.0-12.0 [facility] CentralSjxurzwTGHWAGEYQV8149-94-33 10:09:00 Test Item Value Reference Range Interpretation Comments Platelet (test code = Platelet) 193 133-450 [facility] CentralTemrmydEAMTLJSHTN6108-35-96 10:09:00 Test Item Value Reference Range Interpretation Comments MCV (test code = MCV) 77.5 80.0-94.0 [facility] CentralAgidsanFVFUCQBQTH5560-60-24 10:09:00 Test Item Value Reference Range Interpretation Comments MCHC (test code = MCHC) 35.5 32.0-36.0 [facility] CentralTffxpojUIQAFXYSAE1484-93-46 10:09:00 Test Item Value Reference Range Interpretation Comments MCH (test code = MCH) 27.5 pg 27.0-31.0 [facility] CentralSeralznRLSBUMOSTB5085-12-22 10:09:00 Test Item Value Reference Range Interpretation Comments RDW (test code = RDW) 14.1 11.5-14.5 [facility] CentralInpeihcSDOPRLZOGH1298-27-76 10:09:00 Test Item Value Reference Range Interpretation Comments MPV (test code = MPV) 7.7 7.4-10.4 [facility] CentralDvjkanwEKYJNYWGBL9376-43-39 10:09:00 Test Item Value Reference Range Interpretation Comments Hct (test code = Hct) 23.5 42.0-54.0 [facility] CentralQnhwlviVGCLBMBRZS8054-85-22 10:09:00 Test Item Value Reference Range Interpretation Comments Hgb (test code = Hgb) 8.4 14.0-18.0 [facility] CentralKsqovnjESOSFVRTVV8737-05-74 10:09:00 Test Item Value Reference Range Interpretation Comments RBC (test code = RBC) 3.03 4.70-6.10 [facility] HospitalHrnsbrrPYSBZUJOKS5233-20-69 10:09:00 Test Item Value Reference Range Interpretation Comments WBC (test code = WBC) 6.5 3.7-10.4 [facility]PAR[facility]RO[facility] [id number] 10:09:00 Test Item Value Reference Range Interpretation Comments Ca Norm WB (test code = Ca Norm WB) 0.86 1.05-1.25 [facility]PAR[facility]ITALRO[facility] [id number] 10:09:00 Test Item Value Reference Range Interpretation Comments Ca Ion WB (test code = Ca Ion WB) 0.86 1.05-1.25 [facility] AND [id number] 17:00:00 Test Item Value Reference Range Interpretation Comments Occult Bld Stl (test Positive *ABN*(12/19/17 code = Occult Bld Stl) 12:00 PM) [facility] AND [id number] 17:00:00 Test Item Value Reference Range Interpretation Comments Occult Bld Stl (test Positive *ABN*(12/19/17 code = Occult Bld Stl) 12:00 PM) [facility] AND [id number] 17:00:00 Test Item Value Reference Range Interpretation Comments Occult Bld Stl (test Positive *ABN*(12/19/17 code = Occult Bld Stl) 12:00 PM) [facility] [id number] 12:14:00 Test Item Value Reference Range Interpretation Comments Phosphorus (test code = Phosphorus) 8.2 2.5-4.5 [facility] [id number] 12:14:00 Test Item Value Reference Range Interpretation Comments A/G Ratio (test code = A/G Ratio) 0.8 1 0.7-1.6 [facility] [id number] 12:14:00 Test Item Value Reference Range Interpretation Comments AST (test code = AST) 9 See_Comment [Auto mated message] The system which ge nerated this result transmit emerson reference range : <=37. The reference range was not used to interpr et this result as erinn l/abnormal. [facility] [id number] 12:14:00 Test Item Value Reference Range Interpretation Comments ALT (test code = ALT) 10 See_Comment [Auto mated message] The system which ge nerated this result transmit emerson reference range : <=65. The reference range was not used to interpr et this result as erinn l/abnormal. [facility]2018-03-13 12:14:00 Test Item Value Reference Range Interpretation Comments Globulin (test code = Globulin) 3.5 2.7-4.2 [facility]2018-03-13 12:14:00 Test Item Value Reference Range Interpretation Comments Albumin Lvl (test code = Albumin Lvl) 2.7 3.5-5.0 [facility]2018-03-13 12:14:00 Test Item Value Reference Range Interpretation Comments eGFR (test code = eGFR) 4 [facility]2018-03-13 12:14:00 Test Item Value Reference Range Interpretation Comments Alk Phos (test code = Alk Phos) 100 39-136 [facility]2018-03-13 12:14:00 Test Item Value Reference Range Interpretation Comments Bili Total (test code = Bili Total) 0.3 0.2-1.3 [facility]2018-03-13 12:14:00 Test Item Value Reference Range Interpretation Comments Glucose Lvl (test code = Glucose Lvl) 88 70-99 [facility]2018-03-13 12:14:00 Test Item Value Reference Range Interpretation Comments Potassium Lvl (test code = Potassium 3.6 3.5-5.1 Lvl) [facility]2018-03-13 12:14:00 Test Item Value Reference Range Interpretation Comments Chloride Lvl (test code = Chloride Lvl) 95 95-109 [facility]2018-03-13 12:14:00 Test Item Value Reference Range Interpretation Comments Sodium Lvl (test code = Sodium Lvl) 135 135-145 [facility]2018-03-13 12:14:00 Test Item Value Reference Range Interpretation Comments BUN (test code = BUN) 103 7-22 [facility]2018-03-13 12:14:00 Test Item Value Reference Range Interpretation Comments Creatinine Lvl (test code = Creatinine 11.70 0.50-1.40 Lvl) [facility]2018-03-13 12:14:00 Test Item Value Reference Range Interpretation Comments B/C Ratio (test code = B/C Ratio) 9 1 6-25 [facility]2018-03-13 12:14:00 Test Item Value Reference Range Interpretation Comments Total Protein (test code = Total 6.2 6.4-8.4 Protein) [facility]2018-03-13 12:14:00 Test Item Value Reference Range Interpretation Comments Calcium Lvl (test code = Calcium Lvl) 6.5 8.5-10.5 [facility]2018-03-13 12:14:00 Test Item Value Reference Range Interpretation Comments AGAP (test code = AGAP) 14.6 10.0-20.0 [facility]2018-03-13 12:14:00 Test Item Value Reference Range Interpretation Comments CO2 (test code = CO2) 29 24-32 [facility]2018-03-13 12:14:00 Test Item Value Reference Range Interpretation Comments Ca Ion WB (test code = Ca Ion WB) 0.88 1.05-1.25 [facility]2018-03-13 12:14:00 Test Item Value Reference Range Interpretation Comments Ca Norm WB (test code = Ca Norm WB) 0.85 1.05-1.25 [facility]2018-03-13 12:14:00 Test Item Value Reference Range Interpretation Comments Phosphorus (test code = Phosphorus) 8.2 2.5-4.5 [facility]2018-03-13 12:14:00 Test Item Value Reference Range Interpretation Comments A/G Ratio (test code = A/G Ratio) 0.8 1 0.7-1.6 [place] [id number] 12:14:00 Test Item Value Reference Range Interpretation Comments AST (test code = AST) 9 See_Comment [Auto mated message] The system which ge nerated this result transmit emerson reference range : <=37. The reference range was not used to interpr et this result as erinn l/abnormal. [facility]2018-03-13 12:14:00 Test Item Value Reference Range Interpretation Comments ALT (test code = ALT) 10 See_Comment [Auto mated message] The system which ge nerated this result transmit emerson reference range : <=65. The reference range was not used to interpr et this result as erinn l/abnormal. [facility]2018-03-13 12:14:00 Test Item Value Reference Range Interpretation Comments Globulin (test code = Globulin) 3.5 2.7-4.2 [facility]2018-03-13 12:14:00 Test Item Value Reference Range Interpretation Comments Albumin Lvl (test code = Albumin Lvl) 2.7 3.5-5.0 [facility]2018-03-13 12:14:00 Test Item Value Reference Range Interpretation Comments eGFR (test code = eGFR) 4 [facility]2018-03-13 12:14:00 Test Item Value Reference Range Interpretation Comments Alk Phos (test code = Alk Phos) 100 39-136 [facility]2018-03-13 12:14:00 Test Item Value Reference Range Interpretation Comments Bili Total (test code = Bili Total) 0.3 0.2-1.3 [facility]2018-03-13 12:14:00 Test Item Value Reference Range Interpretation Comments Glucose Lvl (test code = Glucose Lvl) 88 70-99 [facility]2018-03-13 12:14:00 Test Item Value Reference Range Interpretation Comments Potassium Lvl (test code = Potassium 3.6 3.5-5.1 Lvl) [facility]2018-03-13 12:14:00 Test Item Value Reference Range Interpretation Comments Chloride Lvl (test code = Chloride Lvl) 95 95-109 [facility]2018-03-13 12:14:00 Test Item Value Reference Range Interpretation Comments Sodium Lvl (test code = Sodium Lvl) 135 135-145 [facility]2018-03-13 12:14:00 Test Item Value Reference Range Interpretation Comments BUN (test code = BUN) 103 7-22 [facility]2018-03-13 12:14:00 Test Item Value Reference Range Interpretation Comments Creatinine Lvl (test code = Creatinine 11.70 0.50-1.40 Lvl) [facility]2018-03-13 12:14:00 Test Item Value Reference Range Interpretation Comments B/C Ratio (test code = B/C Ratio) 9 1 6-25 [place] [id number] 12:14:00 Test Item Value Reference Range Interpretation Comments Total Protein (test code = Total 6.2 6.4-8.4 Protein) [facility]2018-03-13 12:14:00 Test Item Value Reference Range Interpretation Comments Calcium Lvl (test code = Calcium Lvl) 6.5 8.5-10.5 [facility]2018-03-13 12:14:00 Test Item Value Reference Range Interpretation Comments AGAP (test code = AGAP) 14.6 10.0-20.0 [facility]2018-03-13 12:14:00 Test Item Value Reference Range Interpretation Comments CO2 (test code = CO2) 29 24-32 [facility] [id number] 12:14:00 Test Item Value Reference Range Interpretation Comments Ca Ion WB (test code = Ca Ion WB) 0.88 1.05-1.25 [facility]2018-03-13 12:14:00 Test Item Value Reference Range Interpretation Comments Ca Norm WB (test code = Ca Norm WB) 0.85 1.05-1.25 [facility]2018-03-13 12:14:00 Test Item Value Reference Range Interpretation Comments Phosphorus (test code = Phosphorus) 8.2 2.5-4.5 [facility]2018-03-13 12:14:00 Test Item Value Reference Range Interpretation Comments A/G Ratio (test code = A/G Ratio) 0.8 1 0.7-1.6 [facility]2018-03-13 12:14:00 Test Item Value Reference Range Interpretation Comments AST (test code = AST) 9 See_Comment [Auto mated message] The system which ge nerated this result transmit emerson reference range : <=37. The reference range was not used to interpr et this result as erinn l/abnormal. [facility]2018-03-13 12:14:00 Test Item Value Reference Range Interpretation Comments ALT (test code = ALT) 10 See_Comment [Auto mated message] The system which ge nerated this result transmit emerson reference range : <=65. The reference range was not used to interpr et this result as erinn l/abnormal. [facility]2018-03-13 12:14:00 Test Item Value Reference Range Interpretation Comments Globulin (test code = Globulin) 3.5 2.7-4.2 [facility]2018-03-13 12:14:00 Test Item Value Reference Range Interpretation Comments Albumin Lvl (test code = Albumin Lvl) 2.7 3.5-5.0 [facility]2018-03-13 12:14:00 Test Item Value Reference Range Interpretation Comments eGFR (test code = eGFR) 4 [facility]2018-03-13 12:14:00 Test Item Value Reference Range Interpretation Comments Alk Phos (test code = Alk Phos) 100 39-136 [facility]2018-03-13 12:14:00 Test Item Value Reference Range Interpretation Comments Bili Total (test code = Bili Total) 0.3 0.2-1.3 [facility]2018-03-13 12:14:00 Test Item Value Reference Range Interpretation Comments Glucose Lvl (test code = Glucose Lvl) 88 70-99 [facility]2018-03-13 12:14:00 Test Item Value Reference Range Interpretation Comments Potassium Lvl (test code = Potassium 3.6 3.5-5.1 Lvl) [facility]2018-03-13 12:14:00 Test Item Value Reference Range Interpretation Comments Chloride Lvl (test code = Chloride Lvl) 95 95-109 [facility]2018-03-13 12:14:00 Test Item Value Reference Range Interpretation Comments Sodium Lvl (test code = Sodium Lvl) 135 135-145 [facility]2018-03-13 12:14:00 Test Item Value Reference Range Interpretation Comments BUN (test code = BUN) 103 7-22 [place] [id number] 12:14:00 Test Item Value Reference Range Interpretation Comments Creatinine Lvl (test code = Creatinine 11.70 0.50-1.40 Lvl) [facility]2018-03-13 12:14:00 Test Item Value Reference Range Interpretation Comments B/C Ratio (test code = B/C Ratio) 9 1 6-25 [place] [id number] 12:14:00 Test Item Value Reference Range Interpretation Comments Total Protein (test code = Total 6.2 6.4-8.4 Protein) [facility]2018-03-13 12:14:00 Test Item Value Reference Range Interpretation Comments Calcium Lvl (test code = Calcium Lvl) 6.5 8.5-10.5 [facility]2018-03-13 12:14:00 Test Item Value Reference Range Interpretation Comments AGAP (test code = AGAP) 14.6 10.0-20.0 [facility]2018-03-13 12:14:00 Test Item Value Reference Range Interpretation Comments CO2 (test code = CO2) 29 24-32 [facility]2018-03-13 12:14:00 Test Item Value Reference Range Interpretation Comments Ca Ion WB (test code = Ca Ion WB) 0.88 1.05-1.25 [facility]2018-03-13 12:14:00 Test Item Value Reference Range Interpretation Comments Ca Norm WB (test code = Ca Norm WB) 0.85 1.05-1.25 [facility]2018-03-13 10:02:00 Test Item Value Reference Range Interpretation Comments eGFR (test code = eGFR) 4 [facility]2018-03-13 10:02:00 Test Item Value Reference Range Interpretation Comments Glucose Lvl (test code = Glucose Lvl) 92 70-99 [facility]2018-03-13 10:02:00 Test Item Value Reference Range Interpretation Comments Sodium Lvl (test code = Sodium Lvl) 138 135-145 [facility]2018-03-13 10:02:00 Test Item Value Reference Range Interpretation Comments Potassium Lvl (test code = Potassium 3.6 3.5-5.1 Lvl) [facility]2018-03-13 10:02:00 Test Item Value Reference Range Interpretation Comments BUN (test code = BUN) 97 7-22 [facility]2018-03-13 10:02:00 Test Item Value Reference Range Interpretation Comments Creatinine Lvl (test code = Creatinine 11.80 0.50-1.40 Lvl) [facility]2018-03-13 10:02:00 Test Item Value Reference Range Interpretation Comments Calcium Lvl (test code = Calcium Lvl) 6.8 8.5-10.5 [facility]2018-03-13 10:02:00 Test Item Value Reference Range Interpretation Comments CO2 (test code = CO2) 27 24-32 [facility]2018-03-13 10:02:00 Test Item Value Reference Range Interpretation Comments AGAP (test code = AGAP) 18.6 10.0-20.0 [facility]2018-03-13 10:02:00 Test Item Value Reference Range Interpretation Comments Chloride Lvl (test code = Chloride Lvl) 96 95-109 [facility]2018-03-13 10:02:00 Test Item Value Reference Range Interpretation Comments Magnesium Lvl (test code = Magnesium 1.8 1.8-2.4 Lvl) [facility]CnefyuqNVECYEHRTY8341-07-16 10:02:00 Test Item Value Reference Range Interpretation Comments RDW (test code = RDW) 14.3 11.5-14.5 [facility] CentralSzcyyetCSQFRGPVLS9482-21-99 10:02:00 Test Item Value Reference Range Interpretation Comments MCHC (test code = MCHC) 34.5 32.0-36.0 [facility] CentralYfqdtpaHEMKJBHMPP7337-38-17 10:02:00 Test Item Value Reference Range Interpretation Comments MCH (test code = MCH) 26.8 pg 27.0-31.0 [facility] CentralRcvmrvkRZIKISHGVX9579-66-03 10:02:00 Test Item Value Reference Range Interpretation Comments MPV (test code = MPV) 8.0 7.4-10.4 [facility] CentralApoexuxUMAYLLNIRL5815-09-79 10:02:00 Test Item Value Reference Range Interpretation Comments Platelet (test code = Platelet) 200 133-450 [facility] CentralZqijqfzTJQDKAXUJL3929-05-44 10:02:00 Test Item Value Reference Range Interpretation Comments MCV (test code = MCV) 77.7 80.0-94.0 [facility] CentralYqlseorJUDGZZUVGX9361-29-93 10:02:00 Test Item Value Reference Range Interpretation Comments Hct (test code = Hct) 24.7 42.0-54.0 [facility] CentralFtjxwryWVCOXFKJTF3539-82-23 10:02:00 Test Item Value Reference Range Interpretation Comments Hgb (test code = Hgb) 8.5 14.0-18.0 [facility] CentralGouernwXJJQUFKWDN9287-93-10 10:02:00 Test Item Value Reference Range Interpretation Comments RBC (test code = RBC) 3.17 4.70-6.10 [facility] CentralXyecapkOUPRTJBRZR4014-84-42 10:02:00 Test Item Value Reference Range Interpretation Comments WBC (test code = WBC) 6.6 3.7-10.4 [facility] CentralOnslxnpCLNOBWOOBN2364-18-22 10:02:00 Test Item Value Reference Range Interpretation Comments Monocytes # (test code 0.7 See_Comment [Aut omated message] The = Monocytes #) system which generated this result tra nsmitted reference range : <=0.8. The reference r yared was not used to int erpret this result as normal/abnormal . [facility] CentralDwaiynmQUKKCXLNKR4875-25-67 10:02:00 Test Item Value Reference Range Interpretation Comments Eosinophils # (test code 0.2 See_Comment [A utomated message] The = Eosinophils #) system whic h generated this result tra nsmitted reference range : <=0.5. The reference r yared was not used to int erpret this result as normal/abnormal . [facility] CentralOzcjgylTOMGLZWFCE8561-48-55 10:02:00 Test Item Value Reference Range Interpretation Comments Microcyte (test code = 1+ *ABN*(12/19/17 Microcyte) 5:02 AM) [facility] CentralVidsovhYHFLXNAOIV7645-72-25 10:02:00 Test Item Value Reference Range Interpretation Comments Lymphocytes # (test code = Lymphocytes 1.0 1.0-5.5 #) [facility] CentralMujvmfkZTLZXVFVNT4624-56-34 10:02:00 Test Item Value Reference Range Interpretation Comments Basophils (test code = 0.6 See_Comment [Aut omated message] The Basophils) system which ge nerated this result tra nsmitted reference range : <=1.0. The reference r yared was not used to int erpret this result as normal/abnormal . [facility] CentralIssydpzJTDUWOUFPQ2095-43-54 10:02:00 Test Item Value Reference Range Interpretation Comments Segs-Bands # (test code = Segs-Bands #) 4.7 1.5-8.1 [facility] CentralInusdbzRVOSXVQZNX2618-44-69 10:02:00 Test Item Value Reference Range Interpretation Comments Monocytes (test code = Monocytes) 10.3 2.0-12.0 [facility] CentralYqyumddLFYLIXBMVB2625-83-07 10:02:00 Test Item Value Reference Range Interpretation Comments Eosinophils (test code = 2.9 See_Comment [A utomated message] The Eosinophils) system which ge nerated this result tra nsmitted reference range : <=4.0. The reference r yared was not used to int erpret this result as normal/abnormal . [facility] CentralYokzpjnGIBLCEXGGE1485-62-43 10:02:00 Test Item Value Reference Range Interpretation Comments Lymphocytes (test code = Lymphocytes) 15.3 20.0-40.0 [facility] CentralFsxtmkoBZDMLNNFHX0300-66-47 10:02:00 Test Item Value Reference Range Interpretation Comments Segs (test code = Segs) 70.9 45.0-75.0 [facility]2018-03-13 10:02:00 Test Item Value Reference Range Interpretation Comments Ca Ion WB (test code = Ca Ion WB) 0.88 1.05-1.25 [facility]2018-03-13 10:02:00 Test Item Value Reference Range Interpretation Comments Ca Norm WB (test code = Ca Norm WB) 0.88 1.05-1.25 [facility]2018-03-13 10:02:00 Test Item Value Reference Range Interpretation Comments eGFR (test code = eGFR) 4 [facility]2018-03-13 10:02:00 Test Item Value Reference Range Interpretation Comments Glucose Lvl (test code = Glucose Lvl) 92 70-99 [facility]2018-03-13 10:02:00 Test Item Value Reference Range Interpretation Comments Sodium Lvl (test code = Sodium Lvl) 138 135-145 [facility]2018-03-13 10:02:00 Test Item Value Reference Range Interpretation Comments Potassium Lvl (test code = Potassium 3.6 3.5-5.1 Lvl) [facility]2018-03-13 10:02:00 Test Item Value Reference Range Interpretation Comments BUN (test code = BUN) 97 7-22 [facility]2018-03-13 10:02:00 Test Item Value Reference Range Interpretation Comments Creatinine Lvl (test code = Creatinine 11.80 0.50-1.40 Lvl) [facility]2018-03-13 10:02:00 Test Item Value Reference Range Interpretation Comments Calcium Lvl (test code = Calcium Lvl) 6.8 8.5-10.5 [facility]2018-03-13 10:02:00 Test Item Value Reference Range Interpretation Comments CO2 (test code = CO2) 27 24-32 [facility]2018-03-13 10:02:00 Test Item Value Reference Range Interpretation Comments AGAP (test code = AGAP) 18.6 10.0-20.0 [facility]2018-03-13 10:02:00 Test Item Value Reference Range Interpretation Comments Chloride Lvl (test code = Chloride Lvl) 96 95-109 [facility]2018-03-13 10:02:00 Test Item Value Reference Range Interpretation Comments Magnesium Lvl (test code = Magnesium 1.8 1.8-2.4 Lvl) [facility] CentralMocvboeCDJBFUOSFI0695-19-16 10:02:00 Test Item Value Reference Range Interpretation Comments RDW (test code = RDW) 14.3 11.5-14.5 [facility] CentralPdbjpcrCQNDTCXVBZ4499-51-72 10:02:00 Test Item Value Reference Range Interpretation Comments MCHC (test code = MCHC) 34.5 32.0-36.0 [facility] CentralRpykltxENKLLRQWXH4876-77-86 10:02:00 Test Item Value Reference Range Interpretation Comments MCH (test code = MCH) 26.8 pg 27.0-31.0 [facility] CentralZmbrwsmQBZLRRKKLO8224-38-03 10:02:00 Test Item Value Reference Range Interpretation Comments MPV (test code = MPV) 8.0 7.4-10.4 [facility] CentralTubzsoaYTPWZAKNSQ4220-45-75 10:02:00 Test Item Value Reference Range Interpretation Comments Platelet (test code = Platelet) 200 133-450 [facility] CentralFriginfSAXJEAZJCK8904-08-12 10:02:00 Test Item Value Reference Range Interpretation Comments MCV (test code = MCV) 77.7 80.0-94.0 [facility] CentralFsnhdkkKRYBAJNNSP9305-05-20 10:02:00 Test Item Value Reference Range Interpretation Comments Hct (test code = Hct) 24.7 42.0-54.0 [facility] CentralXtnhwhcUFQQBXNAMD2337-75-46 10:02:00 Test Item Value Reference Range Interpretation Comments Hgb (test code = Hgb) 8.5 14.0-18.0 [facility] CentralYhxsjelIISHBFDNBQ1368-21-27 10:02:00 Test Item Value Reference Range Interpretation Comments RBC (test code = RBC) 3.17 4.70-6.10 [facility] CentralGhmgsqpUUTUVIOONI8515-04-96 10:02:00 Test Item Value Reference Range Interpretation Comments WBC (test code = WBC) 6.6 3.7-10.4 [facility] CentralPbcilroJWGAZQWYZL9990-65-15 10:02:00 Test Item Value Reference Range Interpretation Comments Monocytes # (test code 0.7 See_Comment [Aut omated message] The = Monocytes #) system which generated this result tra nsmitted reference range : <=0.8. The reference r yared was not used to int erpret this result as normal/abnormal . [facility] CentralKcpsxjjEZSPBGCUMG7204-91-99 10:02:00 Test Item Value Reference Range Interpretation Comments Eosinophils # (test code 0.2 See_Comment [A utomated message] The = Eosinophils #) system whic h generated this result tra nsmitted reference range : <=0.5. The reference r yared was not used to int erpret this result as normal/abnormal . [facility] CentralBeshdrfOGGAOKASVS5774-82-75 10:02:00 Test Item Value Reference Range Interpretation Comments Microcyte (test code = 1+ *ABN*(12/19/17 Microcyte) 5:02 AM) [facility] CentralAmaqxuyUVFXIYQHWA9157-59-84 10:02:00 Test Item Value Reference Range Interpretation Comments Lymphocytes # (test code = Lymphocytes 1.0 1.0-5.5 #) [facility] CentralDflrhmcTBRHUVPVZV9276-88-28 10:02:00 Test Item Value Reference Range Interpretation Comments Basophils (test code = 0.6 See_Comment [Aut omated message] The Basophils) system which ge nerated this result tra nsmitted reference range : <=1.0. The reference r yared was not used to int erpret this result as normal/abnormal . [facility] CentralFavvjjtKPWJHTAYAG4220-01-15 10:02:00 Test Item Value Reference Range Interpretation Comments Segs-Bands # (test code = Segs-Bands #) 4.7 1.5-8.1 [facility] CentralRzjthppCLSBQUANOF1985-79-77 10:02:00 Test Item Value Reference Range Interpretation Comments Monocytes (test code = Monocytes) 10.3 2.0-12.0 [facility] CentralIzkrzkrWFAIVHHWOB3649-31-90 10:02:00 Test Item Value Reference Range Interpretation Comments Eosinophils (test code = 2.9 See_Comment [A utomated message] The Eosinophils) system which ge nerated this result tra nsmitted reference range : <=4.0. The reference r yared was not used to int erpret this result as normal/abnormal . [facility] CentralRgzcwbpGITIOMMWNU0900-51-70 10:02:00 Test Item Value Reference Range Interpretation Comments Lymphocytes (test code = Lymphocytes) 15.3 20.0-40.0 [facility] CentralXyubulbEGKAGOUVRI5929-56-38 10:02:00 Test Item Value Reference Range Interpretation Comments Segs (test code = Segs) 70.9 45.0-75.0 [facility]2018-03-13 10:02:00 Test Item Value Reference Range Interpretation Comments Ca Ion WB (test code = Ca Ion WB) 0.88 1.05-1.25 [facility]2018-03-13 10:02:00 Test Item Value Reference Range Interpretation Comments Ca Norm WB (test code = Ca Norm WB) 0.88 1.05-1.25 [facility]2018-03-13 10:02:00 Test Item Value Reference Range Interpretation Comments eGFR (test code = eGFR) 4 [facility]2018-03-13 10:02:00 Test Item Value Reference Range Interpretation Comments Glucose Lvl (test code = Glucose Lvl) 92 70-99 [facility]2018-03-13 10:02:00 Test Item Value Reference Range Interpretation Comments Sodium Lvl (test code = Sodium Lvl) 138 135-145 [facility]2018-03-13 10:02:00 Test Item Value Reference Range Interpretation Comments Potassium Lvl (test code = Potassium 3.6 3.5-5.1 Lvl) [facility]2018-03-13 10:02:00 Test Item Value Reference Range Interpretation Comments BUN (test code = BUN) 97 7-22 [facility]2018-03-13 10:02:00 Test Item Value Reference Range Interpretation Comments Creatinine Lvl (test code = Creatinine 11.80 0.50-1.40 Lvl) [facility]2018-03-13 10:02:00 Test Item Value Reference Range Interpretation Comments Calcium Lvl (test code = Calcium Lvl) 6.8 8.5-10.5 [facility]2018-03-13 10:02:00 Test Item Value Reference Range Interpretation Comments CO2 (test code = CO2) 27 24-32 [facility]2018-03-13 10:02:00 Test Item Value Reference Range Interpretation Comments AGAP (test code = AGAP) 18.6 10.0-20.0 [facility]2018-03-13 10:02:00 Test Item Value Reference Range Interpretation Comments Chloride Lvl (test code = Chloride Lvl) 96 95-109 [facility]2018-03-13 10:02:00 Test Item Value Reference Range Interpretation Comments Magnesium Lvl (test code = Magnesium 1.8 1.8-2.4 Lvl) [facility] CentralZkfvydiXERLJXUKXO3533-77-52 10:02:00 Test Item Value Reference Range Interpretation Comments RDW (test code = RDW) 14.3 11.5-14.5 [facility] CentralQdxsdbfHFDKPSOOEE0612-28-25 10:02:00 Test Item Value Reference Range Interpretation Comments MCHC (test code = MCHC) 34.5 32.0-36.0 [facility] CentralHapcgirOVDIERXKAB9446-44-94 10:02:00 Test Item Value Reference Range Interpretation Comments MCH (test code = MCH) 26.8 pg 27.0-31.0 [facility] CentralEygdzhxUJKNDCBBAQ5490-44-50 10:02:00 Test Item Value Reference Range Interpretation Comments MPV (test code = MPV) 8.0 7.4-10.4 [facility] CentralIrpcowyXUOHTYJISS8577-61-87 10:02:00 Test Item Value Reference Range Interpretation Comments Platelet (test code = Platelet) 200 133-450 [facility] CentralMyjbtxjWSASXSJBNB6648-13-11 10:02:00 Test Item Value Reference Range Interpretation Comments MCV (test code = MCV) 77.7 80.0-94.0 [facility] CentralNwzybszTAYXIIFTQH9314-99-54 10:02:00 Test Item Value Reference Range Interpretation Comments Hct (test code = Hct) 24.7 42.0-54.0 [facility] CentralVpbwihsEBUKJPEESM6854-25-41 10:02:00 Test Item Value Reference Range Interpretation Comments Hgb (test code = Hgb) 8.5 14.0-18.0 [place] 531388-03-13 10:02:00 Test Item Value Reference Range Interpretation Comments RBC (test code = RBC) 3.17 4.70-6.10 [facility] CentralTacpsdrJQHPADVJOY9098-92-48 10:02:00 Test Item Value Reference Range Interpretation Comments WBC (test code = WBC) 6.6 3.7-10.4 [facility] CentralZnpllwdIIEDYIHADA8229-72-74 10:02:00 Test Item Value Reference Range Interpretation Comments Monocytes # (test code 0.7 See_Comment [Aut omated message] The = Monocytes #) system which generated this result tra nsmitted reference range : <=0.8. The reference r yared was not used to int erpret this result as normal/abnormal . [facility] CentralCwfymqrLAENZNBMZT8351-42-23 10:02:00 Test Item Value Reference Range Interpretation Comments Eosinophils # (test code 0.2 See_Comment [A utomated message] The = Eosinophils #) system wh h generated this result tra nsmitted reference range : <=0.5. The reference r yared was not used to int erpret this result as normal/abnormal . [facility] CentralQwetdbrERPWHIDUXQ1417-99-14 10:02:00 Test Item Value Reference Range Interpretation Comments Microcyte (test code = 1+ *ABN*(12/19/17 Microcyte) 5:02 AM) [facility] CentralOadhpwvDHYZKNTKTR6660-42-68 10:02:00 Test Item Value Reference Range Interpretation Comments Lymphocytes # (test code = Lymphocytes 1.0 1.0-5.5 #) [facility] CentralTeudroqVZFJJWFTEC9122-21-83 10:02:00 Test Item Value Reference Range Interpretation Comments Basophils (test code = 0.6 See_Comment [Aut omated message] The Basophils) system which ge nerated this result tra nsmitted reference range : <=1.0. The reference r yared was not used to int erpret this result as normal/abnormal . [facility] CentralWwrwsukCIWDGOURYZ4917-19-68 10:02:00 Test Item Value Reference Range Interpretation Comments Segs-Bands # (test code = Segs-Bands #) 4.7 1.5-8.1 [facility] CentralSpjpfnpVGTHOXENUR1489-30-79 10:02:00 Test Item Value Reference Range Interpretation Comments Monocytes (test code = Monocytes) 10.3 2.0-12.0 [facility] CentralPxvekazWNFKYYPNUS4091-32-30 10:02:00 Test Item Value Reference Range Interpretation Comments Eosinophils (test code = 2.9 See_Comment [A utomated message] The Eosinophils) system which ge nerated this result tra nsmitted reference range : <=4.0. The reference r yared was not used to int erpret this result as normal/abnormal . [facility] CentralOnpqkdhAACOSASZTT2586-12-20 10:02:00 Test Item Value Reference Range Interpretation Comments Lymphocytes (test code = Lymphocytes) 15.3 20.0-40.0 [facility] CentralDypjqsgPEOFIDTNTA4712-96-45 10:02:00 Test Item Value Reference Range Interpretation Comments Segs (test code = Segs) 70.9 45.0-75.0 [facility]2018-03-13 10:02:00 Test Item Value Reference Range Interpretation Comments Ca Ion WB (test code = Ca Ion WB) 0.88 1.05-1.25 [facility]2018-03-13 10:02:00 Test Item Value Reference Range Interpretation Comments Ca Norm WB (test code = Ca Norm WB) 0.88 1.05-1.25 [facility]2018-03-12 09:55:00 Test Item Value Reference Range Interpretation Comments Magnesium Lvl (test code = Magnesium 1.9 1.8-2.4 Lvl) [facility]2018-03-12 09:55:00 Test Item Value Reference Range Interpretation Comments Phosphorus (test code = Phosphorus) 8.8 2.5-4.5 [facility]2018-03-12 09:55:00 Test Item Value Reference Range Interpretation Comments Magnesium Lvl (test code = Magnesium 1.9 1.8-2.4 Lvl) [facility]2018-03-12 09:55:00 Test Item Value Reference Range Interpretation Comments Phosphorus (test code = Phosphorus) 8.8 2.5-4.5 [facility]2018-03-12 09:55:00 Test Item Value Reference Range Interpretation Comments Magnesium Lvl (test code = Magnesium 1.9 1.8-2.4 Lvl) [facility]2018-03-12 09:55:00 Test Item Value Reference Range Interpretation Comments Phosphorus (test code = Phosphorus) 8.8 2.5-4.5 [facility] CentralKfutfcnVAWXCGLGCJ4506-75-16 09:32:00 Test Item Value Reference Range Interpretation Comments Microcyte (test code = 1+ *ABN*(12/17/17 Microcyte) 4:32 AM) [facility] CentralJyseclfSPNVYXABHM0040-79-03 09:32:00 Test Item Value Reference Range Interpretation Comments Eosinophils # (test code 0.2 See_Comment [A utomated message] The = Eosinophils #) system wh h generated this result tra nsmitted reference range : <=0.5. The reference r yared was not used to int erpret this result as normal/abnormal . [facility] CentralIormrywNFXFKFHPHL5200-52-35 09:32:00 Test Item Value Reference Range Interpretation Comments Monocytes # (test code 0.6 See_Comment [Aut omated message] The = Monocytes #) system which generated this result tra nsmitted reference range : <=0.8. The reference r yared was not used to int erpret this result as normal/abnormal . [facility] CentralPakiudnMLMFBTBMOP1661-53-98 09:32:00 Test Item Value Reference Range Interpretation Comments Lymphocytes # (test code = Lymphocytes 1.0 1.0-5.5 #) [facility] CentralTffapfbNKEMDGMYAG3123-68-63 09:32:00 Test Item Value Reference Range Interpretation Comments Segs-Bands # (test code = Segs-Bands #) 3.9 1.5-8.1 [facility] CentralSqzniohZYFYDHEDNR5463-09-16 09:32:00 Test Item Value Reference Range Interpretation Comments Basophils (test code = 0.6 See_Comment [Aut omated message] The Basophils) system which ge nerated this result tra nsmitted reference range : <=1.0. The reference r yared was not used to int erpret this result as normal/abnormal . [facility] CentralScjanzhWNEUNBKDNL3375-40-29 09:32:00 Test Item Value Reference Range Interpretation Comments Eosinophils (test code = 2.7 See_Comment [A utomated message] The Eosinophils) system which ge nerated this result tra nsmitted reference range : <=4.0. The reference r yared was not used to int erpret this result as normal/abnormal . [facility] CentralIelfcntEZRDELVMZW9694-63-48 09:32:00 Test Item Value Reference Range Interpretation Comments Monocytes (test code = Monocytes) 10.4 2.0-12.0 [facility] CentralSacughlXKHXPYBJBS6778-74-17 09:32:00 Test Item Value Reference Range Interpretation Comments Lymphocytes (test code = Lymphocytes) 18.1 20.0-40.0 [facility] CentralRoopajuJWOSQXPWCC8880-84-35 09:32:00 Test Item Value Reference Range Interpretation Comments Segs (test code = Segs) 68.2 45.0-75.0 [facility] CentralByvkwlyKXJUCNTJRV8714-85-63 09:32:00 Test Item Value Reference Range Interpretation Comments Platelet (test code = Platelet) 213 133-450 [facility] CentralWrqsjycSNBOTJDYZQ9271-87-43 09:32:00 Test Item Value Reference Range Interpretation Comments RDW (test code = RDW) 14.3 11.5-14.5 [facility] CentralXtkifiiJPLHLYTDYO5809-13-82 09:32:00 Test Item Value Reference Range Interpretation Comments MPV (test code = MPV) 8.0 7.4-10.4 [facility] CentralIuzmsdgSRBDDYMVVI5845-92-14 09:32:00 Test Item Value Reference Range Interpretation Comments MCH (test code = MCH) 27.4 pg 27.0-31.0 [facility] CentralVnmjjdfWDXPDUALNX0906-37-98 09:32:00 Test Item Value Reference Range Interpretation Comments MCV (test code = MCV) 78.6 80.0-94.0 [facility] CentralFsrqxkgIZMXOCNBCJ5607-12-76 09:32:00 Test Item Value Reference Range Interpretation Comments Hct (test code = Hct) 22.8 42.0-54.0 [facility] CentralTtyzhvsELNCVJFYFS4721-68-15 09:32:00 Test Item Value Reference Range Interpretation Comments MCHC (test code = MCHC) 34.9 32.0-36.0 [facility] CentralQdnafdvBZXKSJZHWX8173-96-53 09:32:00 Test Item Value Reference Range Interpretation Comments Hgb (test code = Hgb) 7.9 14.0-18.0 [facility] CentralAzdslcyFFLLVTVGSM7030-87-69 09:32:00 Test Item Value Reference Range Interpretation Comments RBC (test code = RBC) 2.90 4.70-6.10 [facility] CentralMpeazspPNDNODAAHG0152-00-68 09:32:00 Test Item Value Reference Range Interpretation Comments WBC (test code = WBC) 5.7 3.7-10.4 [facility]jdiqimVUTIODCGCU8049-[facility]-99 09:32:00 Test Item Value Reference Range Interpretation Comments Sed Rate (test code = 80 See_Comment [Auto mated message] The Sed Rate) system which ge nerated this result transmit emerson reference range : <=15. The reference range was not used to interpr et this result as erinn l/abnormal. [facility]YzfeyykWFXDIQLPHP5694-35-90 09:32:00 Test Item Value Reference Range Interpretation Comments Tot Prot (SPE) (test code = Tot Prot 7.0 6.4-8.4 (SPE)) [facility] HospitalTjnnigeKQYNDZQNTZ7453-05-01 09:32:00 Test Item Value Reference Range Interpretation Comments SPE Interp (test Total protein and serum code = SPE Interp) albumin are within normal limits. Serum capillary protein electrophoresis shows an elevated alpha-1 globulin fraction. No monoclonal proteins are identified. The electrophoretic pattern is consistent with the acute phase of an inflammatory process. Clinical correlation is required. Interpretation performed at [facility]. [facility] HospitalFhqgxdgMWKGQDUGED2441-36-85 09:32:00 Test Item Value Reference Range Interpretation Comments Gamma Glob (test code = Gamma Glob) 1.13 0.71-1.57 [facility] HospitalUqrzuxhHKFEUWGLKY8745-31-25 09:32:00 Test Item Value Reference Range Interpretation Comments Beta Glob (test code = Beta Glob) 0.83 0.50-1.15 [facility] HospitalKshdsfyBLPLNUYBUD7435-22-79 09:32:00 Test Item Value Reference Range Interpretation Comments Alpha 2 Glob (test code = Alpha 2 Glob) 0.85 0.45-1.00 [facility] HospitalGwfdsrsOPBSWKOMPC0994-40-85 09:32:00 Test Item Value Reference Range Interpretation Comments Alpha 1 Glob (test code = Alpha 1 Glob) 0.48 0.18-0.41 [facility] HospitalQahwbppBICYTHSCGP6203-26-01 09:32:00 Test Item Value Reference Range Interpretation Comments Albumin (SPE) (test code = Albumin 3.72 3.57-5.55 (SPE)) [facility] HospitalRpxtdpoXAMGBCHOBU9558-01-15 09:32:00 Test Item Value Reference Range Interpretation Comments Beta % (test code = Beta %) 11.8 7.8-13.7 [facility] HospitalMiejlnsTWMHZSLYYM2370-53-68 09:32:00 Test Item Value Reference Range Interpretation Comments Gamma % (test code = Gamma %) 16.2 11.1-18.7 [facility] CenterKanvcebNDWJXHUHVP0639-75-80 09:32:00 Test Item Value Reference Range Interpretation Comments Alpha 2 % (test code = Alpha 2 %) 12.1 7.0-11.9 [facility] CenterIkgajcoQZWSWUSUXK5656-40-77 09:32:00 Test Item Value Reference Range Interpretation Comments Alpha 1 % (test code = Alpha 1 %) 6.8 2.8-4.9 [facility] CenterPniwiegYYQHESKOEV8916-04-19 09:32:00 Test Item Value Reference Range Interpretation Comments Albumin % (test code = Albumin %) 53.1 55.8-66.1 [facility] CenterNdhdiekUPAOZMJSRL9799-01-93 09:32:00 Test Item Value Reference Range Interpretation Comments C3 Complement (test code = C3 91 88-201 Complement) [facility] CenterYvmqoljJCZPBRNTGP6808-69-79 09:32:00 Test Item Value Reference Range Interpretation Comments MIKE Ser Pattern (test See interpretation. code = MIKE Ser Pattern) [facility] CenterBijghxoJVLXWCQQCW6627-90-45 09:32:00 Test Item Value Reference Range Interpretation Comments MIKE Ser Interp Serum immunofixation (test code = MIKE electrophoresis reveals a Ser Interp) polyclonal pattern of immunoglobulins. No monoclonal proteins are identified. Interpretation performed at [facility]. [facility] CenterLptvhujTOXZHVGHEH7790-11-64 09:32:00 Test Item Value Reference Range Interpretation Comments C4 Complement (test code = C4 29 16-47 Complement) [facility] CenterXflmpxrQNZILLARZA3067-34-08 09:32:00 Test Item Value Reference Range Interpretation Comments P-ANCA (test code = Negative (12/17/17 4:32 P-ANCA) AM) [facility] CenterZwxrhptCKYZPGYMEE7271-43-60 09:32:00 Test Item Value Reference Range Interpretation Comments C-ANCA (test code = Negative (12/17/17 4:32 C-ANCA) AM) [facility] CenterMjjecolBXZDJJUGKP9422-82-94 09:32:00 Test Item Value Reference Range Interpretation Comments Hep Bs Ag (test code Negative *NA*(12/17/17 = Hep Bs Ag) 4:32 AM) [facility] CenterFhfzceoMQSVMBUGXX2414-86-11 09:32:00 Test Item Value Reference Range Interpretation Comments Hep Bs Ab (test code = Hep Bs Ab) no gt [facility] CenterViazfqpFZJHWNHHQD0982-98-09 09:32:00 Test Item Value Reference Range Interpretation Comments Hep B Core Ab (test Negative *NA*(12/17/17 code = Hep B Core Ab) 4:32 AM) [facility] CenterMwzkkgfXJOCXXUMDA5819-25-73 09:32:00 Test Item Value Reference Range Interpretation Comments DNA Ab (DS) (test Negative (12/17/17 4:32 code = DNA Ab (DS)) AM) [facility] CenterCratvcrATWNXGTQWO2406-56-08 09:32:00 Test Item Value Reference Range Interpretation Comments [place]/Lambda Free Light Chains Ratio 3.42 0.26-1.65 (test code = [place]/Lambda Free Light Chains Ratio) [facility] CenterDzzmhywSDAZJJPQJG1915-37-29 09:32:00 Test Item Value Reference Range Interpretation Comments [place] Free Light Chains (test code = 203.40 3.30-19.40 [place] Free Light Chains) [facility] CenterHawuaxlGKCXACDOZP4510-13-79 09:32:00 Test Item Value Reference Range Interpretation Comments Lambda Free Light Chains (test code = 59.41 5.70-26.30 Lambda Free Light Chains) [facility] CenterEawcmooPWCDDZESIW3736-07-61 09:32:00 Test Item Value Reference Range Interpretation Comments CHRISTINA (test code = CHRISTINA) Negative (12/17/17 4:32 AM) [facility] CenterAzdrbokVAMXTXMZBC8500-41-26 09:32:00 Test Item Value Reference Range Interpretation Comments RF Qnt (test code = no gt See_Comment [Automa emerson message] The RF Qnt) system which ge nerated this result transmit emerson reference range : <=20. The reference range was not used to interpr et this result as erinn l/abnormal. [facility] CentralBjtbobiDEDGRIUXVY3167-37-67 09:32:00 Test Item Value Reference Range Interpretation Comments Microcyte (test code = 1+ *ABN*(12/17/17 Microcyte) 4:32 AM) [facility] CentralDjfzlcaXMODAMSVBW2631-47-84 09:32:00 Test Item Value Reference Range Interpretation Comments Eosinophils # (test code 0.2 See_Comment [A utomated message] The = Eosinophils #) system whic h generated this result tra nsmitted reference range : <=0.5. The reference r yared was not used to int erpret this result as normal/abnormal . [facility] CentralUvnrnrxCNOHVMAHHX9250-03-44 09:32:00 Test Item Value Reference Range Interpretation Comments Monocytes # (test code 0.6 See_Comment [Aut omated message] The = Monocytes #) system which generated this result tra nsmitted reference range : <=0.8. The reference r yared was not used to int erpret this result as normal/abnormal . [facility] CentralMyqkjwzLGUVIPYUHN8014-66-15 09:32:00 Test Item Value Reference Range Interpretation Comments Lymphocytes # (test code = Lymphocytes 1.0 1.0-5.5 #) [facility] CentralVawonnoPOFFNANYRJ3953-98-78 09:32:00 Test Item Value Reference Range Interpretation Comments Segs-Bands # (test code = Segs-Bands #) 3.9 1.5-8.1 [facility] CentralLovvtmjAZOJAAOMTX7467-99-00 09:32:00 Test Item Value Reference Range Interpretation Comments Basophils (test code = 0.6 See_Comment [Aut omated message] The Basophils) system which ge nerated this result tra nsmitted reference range : <=1.0. The reference r yared was not used to int erpret this result as normal/abnormal . [facility] CentralAjpsbjzMUAKODEOYF2581-36-43 09:32:00 Test Item Value Reference Range Interpretation Comments Eosinophils (test code = 2.7 See_Comment [A utomated message] The Eosinophils) system which ge nerated this result tra nsmitted reference range : <=4.0. The reference r yared was not used to int erpret this result as normal/abnormal . [facility] CentralAmukicfCETUUMFUVQ7090-15-74 09:32:00 Test Item Value Reference Range Interpretation Comments Monocytes (test code = Monocytes) 10.4 2.0-12.0 [facility] CentralOxfebgnQNDLBVXKPS8379-15-97 09:32:00 Test Item Value Reference Range Interpretation Comments Lymphocytes (test code = Lymphocytes) 18.1 20.0-40.0 [facility] CentralGufldeiUAKYSCAZBO8429-34-32 09:32:00 Test Item Value Reference Range Interpretation Comments Segs (test code = Segs) 68.2 45.0-75.0 [facility] CentralRgwmysgUQSRDRXVUL6716-39-07 09:32:00 Test Item Value Reference Range Interpretation Comments Platelet (test code = Platelet) 213 133-450 [facility] CentralYtyggrpWFPBXRZEGZ0025-21-88 09:32:00 Test Item Value Reference Range Interpretation Comments RDW (test code = RDW) 14.3 11.5-14.5 [facility] CentralOdkomolEBARZQVRTS0650-99-15 09:32:00 Test Item Value Reference Range Interpretation Comments MPV (test code = MPV) 8.0 7.4-10.4 [facility] CentralBvtaykcGFUOGMEGVW7636-42-90 09:32:00 Test Item Value Reference Range Interpretation Comments MCH (test code = MCH) 27.4 pg 27.0-31.0 [facility] CentralCeywyupCUGYSMFPHI1702-81-61 09:32:00 Test Item Value Reference Range Interpretation Comments MCV (test code = MCV) 78.6 80.0-94.0 [facility] CentralKvwgnxjUVHCABOMOP2436-75-97 09:32:00 Test Item Value Reference Range Interpretation Comments Hct (test code = Hct) 22.8 42.0-54.0 [facility] CentralXsuuztmLKLBIGPRFI8458-69-23 09:32:00 Test Item Value Reference Range Interpretation Comments MCHC (test code = MCHC) 34.9 32.0-36.0 [facility] CentralTjqatvaKGLFYYXPZW7579-78-44 09:32:00 Test Item Value Reference Range Interpretation Comments Hgb (test code = Hgb) 7.9 14.0-18.0 [facility] CentralUyljnhcUESJBDRRGP8997-63-97 09:32:00 Test Item Value Reference Range Interpretation Comments RBC (test code = RBC) 2.90 4.70-6.10 [facility] CentralHmnzgjyTAFMJZRQTL7227-59-27 09:32:00 Test Item Value Reference Range Interpretation Comments WBC (test code = WBC) 5.7 3.7-10.4 [facility] CentralHviducfUKWNLUPSCY9817-82-47 09:32:00 Test Item Value Reference Range Interpretation Comments Sed Rate (test code = 80 See_Comment [Auto mated message] The Sed Rate) system which ge nerated this result transmit emerson reference range : <=15. The reference range was not used to interpr et this result as erinn l/abnormal. [facility] CenterDjwwklpSACWXAIXBL4378-29-49 09:32:00 Test Item Value Reference Range Interpretation Comments Tot Prot (SPE) (test code = Tot Prot 7.0 6.4-8.4 (SPE)) [facility] CenterJogbbulQQETQUIBVN3797-18-77 09:32:00 Test Item Value Reference Range Interpretation Comments SPE Interp (test Total protein and serum code = SPE Interp) albumin are within normal limits. Serum capillary protein electrophoresis shows an elevated alpha-1 globulin fraction. No monoclonal proteins are identified. The electrophoretic pattern is consistent with the acute phase of an inflammatory process. Clinical correlation is required. Interpretation performed at [facility]. [facility] HospitalObqhgrcLBSDXEIKZA2698-41-90 09:32:00 Test Item Value Reference Range Interpretation Comments Gamma Glob (test code = Gamma Glob) 1.13 0.71-1.57 [facility] HospitalDedhfgiEDPIGYCBES7853-98-30 09:32:00 Test Item Value Reference Range Interpretation Comments Beta Glob (test code = Beta Glob) 0.83 0.50-1.15 [facility] HospitalPbpzlfmXYFNCIZQWM4607-61-19 09:32:00 Test Item Value Reference Range Interpretation Comments Alpha 2 Glob (test code = Alpha 2 Glob) 0.85 0.45-1.00 [facility] CenterBclrgjzWHZLLJETRT8239-12-19 09:32:00 Test Item Value Reference Range Interpretation Comments Alpha 1 Glob (test code = Alpha 1 Glob) 0.48 0.18-0.41 [facility] HospitalAhyexrrFJJDTUZRBX9579-87-19 09:32:00 Test Item Value Reference Range Interpretation Comments Albumin (SPE) (test code = Albumin 3.72 3.57-5.55 (SPE)) [facility] CenterNmihbjtKYHCUVYDPJ9128-98-40 09:32:00 Test Item Value Reference Range Interpretation Comments Beta % (test code = Beta %) 11.8 7.8-13.7 [facility] CenterLixcqnoLQBWCXJGSY7442-84-39 09:32:00 Test Item Value Reference Range Interpretation Comments Gamma % (test code = Gamma %) 16.2 11.1-18.7 [facility] HospitalCbzqimfPIYVVZAQKU7452-76-66 09:32:00 Test Item Value Reference Range Interpretation Comments Alpha 2 % (test code = Alpha 2 %) 12.1 7.0-11.9 [facility] HospitalFhobddxEBRDXVWOHK9124-83-67 09:32:00 Test Item Value Reference Range Interpretation Comments Alpha 1 % (test code = Alpha 1 %) 6.8 2.8-4.9 [facility] HospitalPgjgkqmHYZYSESPND0173-10-77 09:32:00 Test Item Value Reference Range Interpretation Comments Albumin % (test code = Albumin %) 53.1 55.8-66.1 [facility] CenterIlkroyjPNXZMTLZHG3180-99-40 09:32:00 Test Item Value Reference Range Interpretation Comments C3 Complement (test code = C3 91 88-201 Complement) [facility] CenterShbhgzsOFGOXLSQDZ5791-94-17 09:32:00 Test Item Value Reference Range Interpretation Comments MIKE Ser Pattern (test See interpretation. code = MIKE Ser Pattern) [facility] CenterIgxyppmUTBFAZCLUK2961-58-89 09:32:00 Test Item Value Reference Range Interpretation Comments MIKE Ser Interp Serum immunofixation (test code = MIKE electrophoresis reveals a Ser Interp) polyclonal pattern of immunoglobulins. No monoclonal proteins are identified. Interpretation performed at [facility]. [facility] CenterWlxixxfMFBHUFPPNH0040-63-84 09:32:00 Test Item Value Reference Range Interpretation Comments C4 Complement (test code = C4 29 16-47 Complement) [facility] CenterPalglvbWPNBFJLWTN9987-68-81 09:32:00 Test Item Value Reference Range Interpretation Comments P-ANCA (test code = Negative (12/17/17 4:32 P-ANCA) AM) [facility] CenterUieeqtcFNOZIBYOKC1743-93-40 09:32:00 Test Item Value Reference Range Interpretation Comments C-ANCA (test code = Negative (12/17/17 4:32 C-ANCA) AM) [facility] CenterLcvszjoKZPSHTFXGU4772-31-88 09:32:00 Test Item Value Reference Range Interpretation Comments Hep Bs Ag (test code Negative *NA*(12/17/17 = Hep Bs Ag) 4:32 AM) [facility] CenterMznssvfNDGNCVHDZO1958-72-33 09:32:00 Test Item Value Reference Range Interpretation Comments Hep Bs Ab (test code = Hep Bs Ab) no gt [facility] CenterNwfqniiGCWNIHWGPL0737-16-53 09:32:00 Test Item Value Reference Range Interpretation Comments Hep B Core Ab (test Negative *NA*(12/17/17 code = Hep B Core Ab) 4:32 AM) [facility] CenterYhpfzreXBWYQSXOLF2132-70-65 09:32:00 Test Item Value Reference Range Interpretation Comments DNA Ab (DS) (test Negative (12/17/17 4:32 code = DNA Ab (DS)) AM) [facility] CenterSalwmswOOGNXNQOJJ6647-41-53 09:32:00 Test Item Value Reference Range Interpretation Comments [place]/Lambda Free Light Chains Ratio 3.42 0.26-1.65 (test code = [place]/Lambda Free Light Chains Ratio) [facility] CenterGmmrruyYLGWOMEAPE4474-83-55 09:32:00 Test Item Value Reference Range Interpretation Comments [place] Free Light Chains (test code = 203.40 3.30-19.40 [place] Free Light Chains) [facility] CenterFqbuyhlECPUCBAVTX8073-62-56 09:32:00 Test Item Value Reference Range Interpretation Comments Lambda Free Light Chains (test code = 59.41 5.70-26.30 Lambda Free Light Chains) [facility] CenterItxvmpjHSRPVMREUI1422-44-73 09:32:00 Test Item Value Reference Range Interpretation Comments CHRISTINA (test code = CHRISTINA) Negative (12/17/17 4:32 AM) [facility] CenterWkwnsbeLOGAVIRQCB3104-14-83 09:32:00 Test Item Value Reference Range Interpretation Comments RF Qnt (test code = no gt See_Comment [Automa emerson message] The RF Qnt) system which ge nerated this result transmit emerson reference range : <=20. The reference range was not used to interpr et this result as erinn l/abnormal. [facility] CentralPydjhywWLKVLXBCTV1046-67-90 09:32:00 Test Item Value Reference Range Interpretation Comments Microcyte (test code = 1+ *ABN*(12/17/17 Microcyte) 4:32 AM) [facility] CentralSixkbzzAUFZBKYJBP2475-48-67 09:32:00 Test Item Value Reference Range Interpretation Comments Eosinophils # (test code 0.2 See_Comment [A utomated message] The = Eosinophils #) system whic h generated this result tra nsmitted reference range : <=0.5. The reference r yared was not used to int erpret this result as normal/abnormal . [facility] CentralKmzgoxeEHADBDXFVW8006-55-88 09:32:00 Test Item Value Reference Range Interpretation Comments Monocytes # (test code 0.6 See_Comment [Aut omated message] The = Monocytes #) system which generated this result tra nsmitted reference range : <=0.8. The reference r yared was not used to int erpret this result as normal/abnormal . [facility] CentralQodnhuuFODUVKSQZB3394-54-86 09:32:00 Test Item Value Reference Range Interpretation Comments Lymphocytes # (test code = Lymphocytes 1.0 1.0-5.5 #) [facility] CentralJfaqlrpYSAMSSOYWC2523-86-83 09:32:00 Test Item Value Reference Range Interpretation Comments Segs-Bands # (test code = Segs-Bands #) 3.9 1.5-8.1 [facility] CentralNmunajnWZLAOYKSSG8408-82-21 09:32:00 Test Item Value Reference Range Interpretation Comments Basophils (test code = 0.6 See_Comment [Aut omated message] The Basophils) system which ge nerated this result tra nsmitted reference range : <=1.0. The reference r yared was not used to int erpret this result as normal/abnormal . [facility] CentralSxyvuhvMPIMKGEUQX6599-36-31 09:32:00 Test Item Value Reference Range Interpretation Comments Eosinophils (test code = 2.7 See_Comment [A utomated message] The Eosinophils) system which ge nerated this result tra nsmitted reference range : <=4.0. The reference r yared was not used to int erpret this result as normal/abnormal . [facility] CentralWnpzzpuQVKCCGBEDI1613-77-98 09:32:00 Test Item Value Reference Range Interpretation Comments Monocytes (test code = Monocytes) 10.4 2.0-12.0 [facility] CentralJizqaldVYHCOMMZCQ8991-09-44 09:32:00 Test Item Value Reference Range Interpretation Comments Lymphocytes (test code = Lymphocytes) 18.1 20.0-40.0 [facility] CentralXeixyajJYNZXUOLRF6461-78-94 09:32:00 Test Item Value Reference Range Interpretation Comments Segs (test code = Segs) 68.2 45.0-75.0 [facility] CentralJuzruqjAKWKVHNRWI9850-49-53 09:32:00 Test Item Value Reference Range Interpretation Comments Platelet (test code = Platelet) 213 133-450 [facility] CentralZpjbpqcNYVLLCBMCE2219-17-78 09:32:00 Test Item Value Reference Range Interpretation Comments RDW (test code = RDW) 14.3 11.5-14.5 [facility] CentralGggwmjvHSWCMQYBXY8066-24-87 09:32:00 Test Item Value Reference Range Interpretation Comments MPV (test code = MPV) 8.0 7.4-10.4 [facility] CentralZakqqmwFMWMQUWXTH0660-86-09 09:32:00 Test Item Value Reference Range Interpretation Comments MCH (test code = MCH) 27.4 pg 27.0-31.0 [facility] CentralYrtbkqaDSLWOZFVYH2586-69-89 09:32:00 Test Item Value Reference Range Interpretation Comments MCV (test code = MCV) 78.6 80.0-94.0 [facility] CentralGlycelrJSHZXVGYVY1558-59-70 09:32:00 Test Item Value Reference Range Interpretation Comments Hct (test code = Hct) 22.8 42.0-54.0 [facility] CentralVixpzhbWDGQEFQLDC0822-83-71 09:32:00 Test Item Value Reference Range Interpretation Comments MCHC (test code = MCHC) 34.9 32.0-36.0 [facility] CentralMoqrzypFXCBMNHBBU5577-67-98 09:32:00 Test Item Value Reference Range Interpretation Comments Hgb (test code = Hgb) 7.9 14.0-18.0 [facility] CentralTmbglzjBUEGCLJNKB7352-50-41 09:32:00 Test Item Value Reference Range Interpretation Comments RBC (test code = RBC) 2.90 4.70-6.10 [place] [address]-03-11 09:32:00 Test Item Value Reference Range Interpretation Comments WBC (test code = WBC) 5.7 3.7-10.4 [place] [address]-03-11 09:32:00 Test Item Value Reference Range Interpretation Comments Sed Rate (test code = 80 See_Comment [Auto mated message] The Sed Rate) system which ge nerated this result transmit emerson reference range : <=15. The reference range was not used to interpr et this result as erinn l/abnormal. [facility] CenterMhvwoffTRGPCSMBCC7068-00-47 09:32:00 Test Item Value Reference Range Interpretation Comments Tot Prot (SPE) (test code = Tot Prot 7.0 6.4-8.4 (SPE)) [facility] CenterGomqzskYIPSEHNLJD8100-57-37 09:32:00 Test Item Value Reference Range Interpretation Comments SPE Interp (test Total protein and serum code = SPE Interp) albumin are within normal limits. Serum capillary protein electrophoresis shows an elevated alpha-1 globulin fraction. No monoclonal proteins are identified. The electrophoretic pattern is consistent with the acute phase of an inflammatory process. Clinical correlation is required. Interpretation performed at [facility]. [facility] CenterJfnlovhQLYOCSNNGN5792-47-46 09:32:00 Test Item Value Reference Range Interpretation Comments Gamma Glob (test code = Gamma Glob) 1.13 0.71-1.57 [place] [address]-03-11 09:32:00 Test Item Value Reference Range Interpretation Comments Beta Glob (test code = Beta Glob) 0.83 0.50-1.15 [facility] HospitalFeemakeLJBCAXOYWV2020-19-65 09:32:00 Test Item Value Reference Range Interpretation Comments Alpha 2 Glob (test code = Alpha 2 Glob) 0.85 0.45-1.00 [facility] CenterXsrshkfRGMDLEXULN6020-82-53 09:32:00 Test Item Value Reference Range Interpretation Comments Alpha 1 Glob (test code = Alpha 1 Glob) 0.48 0.18-0.41 [facility] CenterBwxlryxVPLVZCZUQI7231-38-24 09:32:00 Test Item Value Reference Range Interpretation Comments Albumin (SPE) (test code = Albumin 3.72 3.57-5.55 (SPE)) [facility] CenterYiibdcvYXHWPOXDRD3929-59-15 09:32:00 Test Item Value Reference Range Interpretation Comments Beta % (test code = Beta %) 11.8 7.8-13.7 [facility] CenterNuhnfaoIRRMGOCBOH6257-91-26 09:32:00 Test Item Value Reference Range Interpretation Comments Gamma % (test code = Gamma %) 16.2 11.1-18.7 [facility] CenterDxmnyikOJWAEIZMFJ8221-20-70 09:32:00 Test Item Value Reference Range Interpretation Comments Alpha 2 % (test code = Alpha 2 %) 12.1 7.0-11.9 [facility] CenterKfcluylEWACFIFLQB0125-98-46 09:32:00 Test Item Value Reference Range Interpretation Comments Alpha 1 % (test code = Alpha 1 %) 6.8 2.8-4.9 [facility] CenterMgeamvmCLJERCJKVP5383-60-06 09:32:00 Test Item Value Reference Range Interpretation Comments Albumin % (test code = Albumin %) 53.1 55.8-66.1 [facility] CenterHfvmvhfRWADXWNFZT4119-82-82 09:32:00 Test Item Value Reference Range Interpretation Comments C3 Complement (test code = C3 91 88-201 Complement) [facility] CenterEikcyaoMGCTBGZKBM3496-43-49 09:32:00 Test Item Value Reference Range Interpretation Comments MIKE Ser Pattern (test See interpretation. code = MIKE Ser Pattern) [facility] CenterTaheivyAENBNLHGSD2181-73-59 09:32:00 Test Item Value Reference Range Interpretation Comments MIKE Ser Interp Serum immunofixation (test code = MIKE electrophoresis reveals a Ser Interp) polyclonal pattern of immunoglobulins. No monoclonal proteins are identified. Interpretation performed at [facility]. [facility] HospitalGtrvbpmBOLHUZYDDO9031-37-14 09:32:00 Test Item Value Reference Range Interpretation Comments C4 Complement (test code = C4 29 16-47 Complement) [facility] CenterYbbraeeOLGPNIHQDB4479-93-83 09:32:00 Test Item Value Reference Range Interpretation Comments P-ANCA (test code = Negative (12/17/17 4:32 P-ANCA) AM) [facility] CenterYmmekwtOBFCCSPLGY1162-23-59 09:32:00 Test Item Value Reference Range Interpretation Comments C-ANCA (test code = Negative (12/17/17 4:32 C-ANCA) AM) [facility] CenterDhfqhjtCTZFROREOG1207-91-41 09:32:00 Test Item Value Reference Range Interpretation Comments Hep Bs Ag (test code Negative *NA*(12/17/17 = Hep Bs Ag) 4:32 AM) [facility] CenterMvwpeodWFGTKXPLDN8003-93-13 09:32:00 Test Item Value Reference Range Interpretation Comments Hep Bs Ab (test code = Hep Bs Ab) no gt [facility] CenterEhhswmnXMEAZFPSKV3490-71-78 09:32:00 Test Item Value Reference Range Interpretation Comments Hep B Core Ab (test Negative *NA*(12/17/17 code = Hep B Core Ab) 4:32 AM) [facility] CenterAaxjbvoIZZTCGQOKV4271-28-82 09:32:00 Test Item Value Reference Range Interpretation Comments DNA Ab (DS) (test Negative (12/17/17 4:32 code = DNA Ab (DS)) AM) [facility] CenterOukncekQZURZJLJGA7418-86-13 09:32:00 Test Item Value Reference Range Interpretation Comments [place]/Lambda Free Light Chains Ratio 3.42 0.26-1.65 (test code = [place]/Lambda Free Light Chains Ratio) [facility] CenterBqggbsvALXGDJPMNY5132-91-02 09:32:00 Test Item Value Reference Range Interpretation Comments [place] Free Light Chains (test code = 203.40 3.30-19.40 [place] Free Light Chains) [facility] CenterPsxyldiMACWQIQGQG1757-39-05 09:32:00 Test Item Value Reference Range Interpretation Comments Lambda Free Light Chains (test code = 59.41 5.70-26.30 Lambda Free Light Chains) [facility] CenterGigvvzxUJAPAUMVDC9059-38-53 09:32:00 Test Item Value Reference Range Interpretation Comments CHRISTINA (test code = CHRISTINA) Negative (12/17/17 4:32 AM) [id number] 09:32:00 Test Item Value Reference Range Interpretation Comments RF Qnt (test code = no gt See_Comment [Automa emerson message] The RF Qnt) system which ge nerated this result transmit emerson reference range : <=20. The reference range was not used to interpr et this result as erinn l/abnormal. [facility]2018-03-09 22:29:00 Test Item Value Reference Range Interpretation Comments % Satur Fe (test code = % Satur Fe) [facility]2018-03-09 22:29:00 Test Item Value Reference Range Interpretation Comments UIBC (test code = UIBC) 238 110-370 [facility]2018-03-09 22:29:00 Test Item Value Reference Range Interpretation Comments TIBC (test code = TIBC) 272 228-428 [facility]2018-03-09 22:29:00 Test Item Value Reference Range Interpretation Comments Iron (test code = Iron) 34 45-160 [facility]2018-03-09 22:29:00 Test Item Value Reference Range Interpretation Comments Ferritin Lvl (test code = Ferritin Lvl) 266 22-275 [facility]2018-03-09 22:29:00 Test Item Value Reference Range Interpretation Comments Vitamin B12 Lvl (test code = Vitamin 631 050-3448 B12 Lvl) [facility] [id number] 22:29:00 Test Item Value Reference Range Interpretation Comments Folate Lvl (test code = Folate Lvl) 19.0 [facility] [id number] 22:29:00 Test Item Value Reference Range Interpretation Comments Vitamin D, 25-OH, Total (test code = 12.3 30.0-100.0 Vitamin D, 25-OH, Total) [facility] [id number] 22:29:00 Test Item Value Reference Range Interpretation Comments PTH Intact (test code = PTH Intact) 396.7 11.1-79.5 [facility]2018-03-09 22:29:00 Test Item Value Reference Range Interpretation Comments % Satur Fe (test code = % Satur Fe) 12 [facility]2018-03-09 22:29:00 Test Item Value Reference Range Interpretation Comments UIBC (test code = UIBC) 238 110-370 [facility]2018-03-09 22:29:00 Test Item Value Reference Range Interpretation Comments TIBC (test code = TIBC) 272 084-428 [facility]2018-03-09 22:29:00 Test Item Value Reference Range Interpretation Comments Iron (test code = Iron) 34 45-160 [facility]2018-03-09 22:29:00 Test Item Value Reference Range Interpretation Comments Ferritin Lvl (test code = Ferritin Lvl) 266 22-275 [facility]2018-03-09 22:29:00 Test Item Value Reference Range Interpretation Comments Vitamin B12 Lvl (test code = Vitamin 868 920-2844 B12 Lvl) [facility]2018-03-09 22:29:00 Test Item Value Reference Range Interpretation Comments Folate Lvl (test code = Folate Lvl) 19.0 [facility] [id number] 22:29:00 Test Item Value Reference Range Interpretation Comments Vitamin D, 25-OH, Total (test code = 12.3 30.0-100.0 Vitamin D, 25-OH, Total) [facility] [id number] 22:29:00 Test Item Value Reference Range Interpretation Comments PTH Intact (test code = PTH Intact) 396.7 11.1-79.5 [facility]2018-03-09 22:29:00 Test Item Value Reference Range Interpretation Comments % Satur Fe (test code = % Satur Fe) 12 12-57 [facility] [id number] 22:29:00 Test Item Value Reference Range Interpretation Comments UIBC (test code = UIBC) 238 110-370 [facility]2018-03-09 22:29:00 Test Item Value Reference Range Interpretation Comments TIBC (test code = TIBC) 272 228-428 [facility]2018-03-09 22:29:00 Test Item Value Reference Range Interpretation Comments Iron (test code = Iron) 34 45-160 [facility]2018-03-09 22:29:00 Test Item Value Reference Range Interpretation Comments Ferritin Lvl (test code = Ferritin Lvl) 266 22-275 [facility] [id number] 22:29:00 Test Item Value Reference Range Interpretation Comments Vitamin B12 Lvl (test code = Vitamin 797 301-8731 B12 Lvl) [facility] [id number] 22:29:00 Test Item Value Reference Range Interpretation Comments Folate Lvl (test code = Folate Lvl) 19.0 [facility] [id number] 22:29:00 Test Item Value Reference Range Interpretation Comments Vitamin D, 25-OH, Total (test code = 12.3 30.0-100.0 Vitamin D, 25-OH, Total) [facility]PAR[facility] [id number] 22:29:00 Test Item Value Reference Range Interpretation Comments PTH Intact (test code = PTH Intact) 396.7 11.1-79.5 [facility] [id number] 20:13:00 Test Item Value Reference Range Interpretation Comments Retic Auto (test code = Retic Auto) 1.5 0.5-1.5 [facility] [id number] 20:13:00 Test Item Value Reference Range Interpretation Comments Retic Auto (test code = Retic Auto) 1.5 0.5-1.5 [facility] [id number] 20:13:00 Test Item Value Reference Range Interpretation Comments Retic Auto (test code = Retic Auto) 1.5 0.5-1.5 [facility]ARD[facility] [id number] 20:12:00 Test Item Value Reference Range Interpretation Comments Troponin-I (test code no gt See_Comment [Auto mated message] The = Troponin-I) system which g enerated this result transmit emerson reference range : <=0.40. The reference r yared was not used to interpr et this result as erinn l/abnormal. [facility] [id number] 20:12:00 Test Item Value Reference Range Interpretation Comments Total CK (test code = Total CK) 380 12-191 [facility] [id number] 20:12:00 Test Item Value Reference Range Interpretation Comments CK MB (test code = CK MB) 5.4 0.5-3.6 [facility] HospitalCARAC [id number] 20:12:00 Test Item Value Reference Range Interpretation Comments CK MB Index (test 1.4 1 See_Comment [Automate d message] The code = CK MB Index) system w [facility] generated this result transmit emerson reference range : <=2.5. The reference range was not used to interpr et this result as erinn l/abnormal. [facility]2018-03-09 20:12:00 Test Item Value Reference Range Interpretation Comments Phosphorus (test code = >13.5 mg/dL 2.5-4.5 Phosphorus) [facility]2018-03-09 20:12:00 Test Item Value Reference Range Interpretation Comments Bili Total (test code = Bili Total) 0.4 0.2-1.3 [facility]2018-03-09 20:12:00 Test Item Value Reference Range Interpretation Comments ALT (test code = ALT) 14 See_Comment [Auto mated message] The system which ge nerated this result transmit emerson reference range : <=65. The reference range was not used to interpr et this result as erinn l/abnormal. [facility]2018-03-09 20:12:00 Test Item Value Reference Range Interpretation Comments AST (test code = AST) 17 See_Comment [Auto mated message] The system which ge nerated this result transmit emerson reference range : <=37. The reference range was not used to interpr et this result as erinn l/abnormal. [facility]2018-03-09 20:12:00 Test Item Value Reference Range Interpretation Comments Alk Phos (test code = Alk Phos) 115 39-136 [facility]2018-03-09 20:12:00 Test Item Value Reference Range Interpretation Comments Albumin Lvl (test code = Albumin Lvl) 3.4 3.5-5.0 [facility]2018-03-09 20:12:00 Test Item Value Reference Range Interpretation Comments Total Protein (test code = Total 7.4 6.4-8.4 Protein) [facility]2018-03-09 20:12:00 Test Item Value Reference Range Interpretation Comments B/C Ratio (test code = B/C Ratio) 9 1 6-25 [place] [id number] 20:12:00 Test Item Value Reference Range Interpretation Comments A/G Ratio (test code = A/G Ratio) 0.8 1 0.7-1.6 [employer] [id number] 20:12:00 Test Item Value Reference Range Interpretation Comments Globulin (test code = Globulin) 4.0 2.7-4.[address] [facility] Exam18 [id number] 20:12:00 Test Item Value Reference Range Interpretation Comments Troponin-I (test code no gt See_Comment [Auto mated message] The = Troponin-I) system which g enerated this result transmit emerson reference range : <=0.40. The reference r yared was not used to interpr et this result as erinn l/abnormal. [employer] [id number] 20:12:00 Test Item Value Reference Range Interpretation Comments Total CK (test code = Total CK) 380 12-[address] [facility] [employer]2018-03-09 20:12:00 Test Item Value Reference Range Interpretation Comments CK MB (test code = CK MB) 5.4 0.5-3.[address] [facility] [employer]2018-03-09 20:12:00 Test Item Value Reference Range Interpretation Comments CK MB Index (test 1.4 1 See_Comment [Automate d message] The code = CK MB Index) system w [facility] generated this result transmit emerson reference range : <=2.5. The reference range was not used to interpr et this result as erinn l/abnormal. [employer]2018-03-09 20:12:00 Test Item Value Reference Range Interpretation Comments Phosphorus (test code = >13.5 mg/dL 2.5-4.5 Phosphorus) [facility] [employer] [id number] 20:12:00 Test Item Value Reference Range Interpretation Comments Bili Total (test code = Bili Total) 0.4 0.2-1.[address] [facility] [employer] [id number] 20:12:00 Test Item Value Reference Range Interpretation Comments ALT (test code = ALT) 14 See_Comment [Auto mated message] The system which ge nerated this result transmit emerson reference range : <=65. The reference range was not used to interpr et this result as erinn l/abnormal. [employer]2018-03-09 20:12:00 Test Item Value Reference Range Interpretation Comments AST (test code = AST) 17 See_Comment [Auto mated message] The system which ge nerated this result transmit emerson reference range : <=37. The reference range was not used to interpr et this result as erinn l/abnormal. [employer] [id number] 20:12:00 Test Item Value Reference Range Interpretation Comments Alk Phos (test code = Alk Phos) 115 39-[address] [facility] [employer] [id number] 20:12:00 Test Item Value Reference Range Interpretation Comments Albumin Lvl (test code = Albumin Lvl) 3.4 3.5-5.[address] [facility] [employer] [id number] 20:12:00 Test Item Value Reference Range Interpretation Comments Total Protein (test code = Total 7.4 6.4-8.4 Protein) [facility] [employer] [id number] 20:12:00 Test Item Value Reference Range Interpretation Comments B/C Ratio (test code = B/C Ratio) 9 1 6-[address] [facility] [employer] [id number] 20:12:00 Test Item Value Reference Range Interpretation Comments A/G Ratio (test code = A/G Ratio) 0.8 1 0.7-1.[address] [facility] [employer]2018-03-09 20:12:00 Test Item Value Reference Range Interpretation Comments Globulin (test code = Globulin) 4.0 2.7-4.[address] [facility] [employer]2018-03-09 20:12:00 Test Item Value Reference Range Interpretation Comments Troponin-I (test code no gt See_Comment [Auto mated message] The = Troponin-I) system which g enerated this result transmit emerson reference range : <=0.40. The reference r yared was not used to interpr et this result as erinn l/abnormal. [facility] [employer]2018-03-09 20:12:00 Test Item Value Reference Range Interpretation Comments Total CK (test code = Total CK) 380 12-[address] [facility] Exam18 [id number] 20:12:00 Test Item Value Reference Range Interpretation Comments CK MB (test code = CK MB) 5.4 0.5-3.[address] [facility] [employer]2018-03-09 20:12:00 Test Item Value Reference Range Interpretation Comments CK MB Index (test 1.4 1 See_Comment [Automate d message] The code = CK MB Index) system w [facility] generated this result transmit emerson reference range : <=2.5. The reference range was not used to interpr et this result as erinn l/abnormal. [facility]2018-03-09 20:12:00 Test Item Value Reference Range Interpretation Comments Phosphorus (test code = >13.5 mg/dL 2.5-4.5 Phosphorus) [facility]2018-03-09 20:12:00 Test Item Value Reference Range Interpretation Comments Bili Total (test code = Bili Total) 0.4 0.2-1.3 [facility]2018-03-09 20:12:00 Test Item Value Reference Range Interpretation Comments ALT (test code = ALT) 14 See_Comment [Auto mated message] The system which ge nerated this result transmit emerson reference range : <=65. The reference range was not used to interpr et this result as erinn l/abnormal. [facility]2018-03-09 20:12:00 Test Item Value Reference Range Interpretation Comments AST (test code = AST) 17 See_Comment [Auto mated message] The system which ge nerated this result transmit emerson reference range : <=37. The reference range was not used to interpr et this result as erinn l/abnormal. [facility]2018-03-09 20:12:00 Test Item Value Reference Range Interpretation Comments Alk Phos (test code = Alk Phos) 115 39-136 [facility]2018-03-09 20:12:00 Test Item Value Reference Range Interpretation Comments Albumin Lvl (test code = Albumin Lvl) 3.4 3.5-5.0 [facility]2018-03-09 20:12:00 Test Item Value Reference Range Interpretation Comments Total Protein (test code = Total 7.4 6.4-8.4 Protein) [facility]2018-03-09 20:12:00 Test Item Value Reference Range Interpretation Comments B/C Ratio (test code = B/C Ratio) 9 1 6-25 [facility]2018-03-09 20:12:00 Test Item Value Reference Range Interpretation Comments A/G Ratio (test code = A/G Ratio) 0.8 1 0.7-1.[address] [facility] [employer] [id number] 20:12:00 Test Item Value Reference Range Interpretation Comments Globulin (test code = Globulin) 4.0 2.7-4.[address] [facility] [employer] [id number] 16:39:00 Test Item Value Reference Range Interpretation Comments Troponin-I (test code no gt See_Comment [Auto mated message] The = Troponin-I) system which g enerated this result transmit emerson reference range : <=0.40. The reference r yared was not used to interpr et this result as erinn l/abnormal. [facility] [employer] [id number] 16:39:00 Test Item Value Reference Range Interpretation Comments Total CK (test code = Total CK) [address] [facility] [employer] [id number] 16:39:00 Test Item Value Reference Range Interpretation Comments CK MB (test code = CK MB) 4.8 0.5-3.[address] [facility] [employer] [id number] 16:39:00 Test Item Value Reference Range Interpretation Comments CK MB Index (test 1.4 1 See_Comment [Automate d message] The code = CK MB Index) system w [facility] generated this result transmit emerson reference range : <=2.5. The reference range was not used to interpr et this result as erinn l/abnormal. [facility] [employer]2018-03-09 16:39:00 Test Item Value Reference Range Interpretation Comments Troponin-I (test code no gt See_Comment [Auto mated message] The = Troponin-I) system which g enerated this result transmit emerson reference range : <=0.40. The reference r yared was not used to interpr et this result as erinn l/abnormal. [facility] Exam18 [id number] 16:39:00 Test Item Value Reference Range Interpretation Comments Total CK (test code = Total CK) [address] [facility] [employer] [id number] 16:39:00 Test Item Value Reference Range Interpretation Comments CK MB (test code = CK MB) 4.8 0.5-3.[address] [facility] [employer] [id number] 16:39:00 Test Item Value Reference Range Interpretation Comments CK MB Index (test 1.4 1 See_Comment [Automate d message] The code = CK MB Index) system w [employer] generated this result transmit emerson reference range : <=2.5. The reference range was not used to interpr et this result as erinn l/abnormal. [facility] [employer]AC [id number] 16:39:00 Test Item Value Reference Range Interpretation Comments Troponin-I (test code no gt See_Comment [Auto mated message] The = Troponin-I) system which g enerated this result transmit emerson reference range : <=0.40. The reference r yared was not used to interpr et this result as erinn l/abnormal. [facility]CARDIAC [id number] 16:39:00 Test Item Value Reference Range Interpretation Comments Total CK (test code = Total CK) 350 12-[address] [facility] [employer]AC [id number] 16:39:00 Test Item Value Reference Range Interpretation Comments CK MB (test code = CK MB) 4.8 0.5-3.[address] [facility] [employer] [id number] 16:39:00 Test Item Value Reference Range Interpretation Comments CK MB Index (test 1.4 1 See_Comment [Automate d message] The code = CK MB Index) system w [employer] generated this result transmit emerson reference range : <=2.5. The reference range was not used to interpr et this result as erinn l/abnormal. [facility] [id number] 14:38:00 Test Item Value Reference Range Interpretation Comments U Potassium (test code = U Potassium) 20.[address] [facility] [employer]card[employer]URINE [id number] 14:38:00 Test Item Value Reference Range Interpretation Comments U Sodium (test code = U Sodium) 31 [facility] [id number] 14:38:00 Test Item Value Reference Range Interpretation Comments U Chloride (test code = U Chloride) 22 [facility] [id number] 14:38:00 Test Item Value Reference Range Interpretation Comments U Protein (test code = U Protein) 246.9 [facility] [id number] 14:38:00 Test Item Value Reference Range Interpretation Comments U Prot/Creat (test code = U 4.35 1 Prot/Creat) [facility] [id number] 14:38:00 Test Item Value Reference Range Interpretation Comments U Creatinine (test code = U Creatinine) 56.70 [facility]2018-03-09 14:38:00 Test Item Value Reference Range Interpretation Comments U Osmolality (test code = U Osmolality) 223 300-800 [facility]2018-03-09 14:38:00 Test Item Value Reference Range Interpretation Comments U Eos (test code = U None Seen (12/15/17 8:38 Eos) AM) [facility]2018-03-09 14:38:00 Test Item Value Reference Range Interpretation Comments U Potassium (test code = U Potassium) 20.0 [facility]2018-03-09 14:38:00 Test Item Value Reference Range Interpretation Comments U Sodium (test code = U Sodium) 31 [facility]2018-03-09 14:38:00 Test Item Value Reference Range Interpretation Comments U Chloride (test code = U Chloride) 22 [facility]2018-03-09 14:38:00 Test Item Value Reference Range Interpretation Comments U Protein (test code = U Protein) 246.9 [facility]2018-03-09 14:38:00 Test Item Value Reference Range Interpretation Comments U Prot/Creat (test code = U 4.35 1 Prot/Creat) [facility]2018-03-09 14:38:00 Test Item Value Reference Range Interpretation Comments U Creatinine (test code = U Creatinine) 56.70 [facility]2018-03-09 14:38:00 Test Item Value Reference Range Interpretation Comments U Osmolality (test code = U Osmolality) 223 300-800 [facility]2018-03-09 14:38:00 Test Item Value Reference Range Interpretation Comments U Eos (test code = U None Seen (12/15/17 8:38 Eos) AM) [facility]2018-03-09 14:38:00 Test Item Value Reference Range Interpretation Comments U Potassium (test code = U Potassium) 20.0 [facility]2018-03-09 14:38:00 Test Item Value Reference Range Interpretation Comments U Sodium (test code = U Sodium) 31 [facility]2018-03-09 14:38:00 Test Item Value Reference Range Interpretation Comments U Chloride (test code = U Chloride) 22 [facility]2018-03-09 14:38:00 Test Item Value Reference Range Interpretation Comments U Protein (test code = U Protein) 246.9 [facility]2018-03-09 14:38:00 Test Item Value Reference Range Interpretation Comments U Prot/Creat (test code = U 4.35 1 Prot/Creat) [facility]2018-03-09 14:38:00 Test Item Value Reference Range Interpretation Comments U Creatinine (test code = U Creatinine) 56.70 [facility]2018-03-09 14:38:00 Test Item Value Reference Range Interpretation Comments U Osmolality (test code = U Osmolality) 223 300-800 [facility]2018-03-09 14:38:00 Test Item Value Reference Range Interpretation Comments U Eos (test code = U None Seen (12/15/17 8:38 Eos) AM) [facility] AND [id number] 14:33:00 Test Item Value Reference Range Interpretation Comments Micro? (test code = Performed *NA*(12/15/17 Micro?) 8:33 AM) [facility] AND [id number] 14:33:00 Test Item Value Reference Range Interpretation Comments UA Urobilinogen (test code = UA <=1.0 mg/dL 0.1-1.0 Urobilinogen) [facility] AND [id number] 14:33:00 Test Item Value Reference Range Interpretation Comments UA Glucose (test code = UA Glucose) 50 [facility] AND [id number] 14:33:00 Test Item Value Reference Range Interpretation Comments UA Color (test code = UA Color) STRAW [facility] AND [id number] 14:33:00 Test Item Value Reference Range Interpretation Comments UA Nitrite (test code Negative (12/15/17 8:33 = UA Nitrite) AM) [facility] AND [id number] 14:33:00 Test Item Value Reference Range Interpretation Comments UA Blood (test code = Small *ABN*(12/15/17 UA Blood) 8:33 AM) [facility] AND [id number] 14:33:00 Test Item Value Reference Range Interpretation Comments UA Leuk Est (test Negative (12/15/17 8:33 code = UA Leuk Est) AM) [facility] AND [id number] 14:33:00 Test Item Value Reference Range Interpretation Comments UA WBC (test code = 3 See_Comment [Automa emerson message] The UA WBC) system which ge nerated this result transmit emerson reference range : <=5. The reference range was not used to interpr et this result as erinn l/abnormal. [facility] AND [id number] 14:33:00 Test Item Value Reference Range Interpretation Comments UA Sq Epi (test code = UA Sq Occasional /LPF Epi) [facility] AND [id number] 14:33:00 Test Item Value Reference Range Interpretation Comments UA Mucus (test code = UA Mucus) Few /LPF [facility] AND [id number] 14:33:00 Test Item Value Reference Range Interpretation Comments UA RBC (test code = 1 See_Comment [Automa emerson message] The UA RBC) system which ge nerated this result transmit emerson reference range : <=2. The reference range was not used to interpr et this result as erinn l/abnormal. [facility] AND [id number] 14:33:00 Test Item Value Reference Range Interpretation Comments UA Turbidity (test code Slight *ABN*(12/15/17 = UA Turbidity) 8:33 AM) [facility] AND [id number] 14:33:00 Test Item Value Reference Range Interpretation Comments UA Spec Grav (test code = UA Spec 1.008 1 Grav) [facility] AND [id number] 14:33:00 Test Item Value Reference Range Interpretation Comments UA Ketones (test code = UA Negative mg/dL Ketones) [facility] AND [id number] 14:33:00 Test Item Value Reference Range Interpretation Comments UA pH (test code = UA pH) 5.0 1 5.0-8.0 [facility] AND [id number] 14:33:00 Test Item Value Reference Range Interpretation Comments UA Bili (test code = Negative *NA*(12/15/17 UA Bili) 8:33 AM) [facility] AND [id number] 14:33:00 Test Item Value Reference Range Interpretation Comments UA Protein (test code = UA Protein) 100 mg/dL [facility] AND [id number] 14:33:00 Test Item Value Reference Range Interpretation Comments Micro? (test code = Performed *NA*(12/15/17 Micro?) 8:33 AM) [facility] AND [id number] 14:33:00 Test Item Value Reference Range Interpretation Comments UA Urobilinogen (test code = UA <=1.0 mg/dL 0.1-1.0 Urobilinogen) [facility] AND [id number] 14:33:00 Test Item Value Reference Range Interpretation Comments UA Glucose (test code = UA Glucose) 50 [facility] AND [id number] 14:33:00 Test Item Value Reference Range Interpretation Comments UA Color (test code = UA Color) STRAW [facility] AND [id number] 14:33:00 Test Item Value Reference Range Interpretation Comments UA Nitrite (test code Negative (12/15/17 8:33 = UA Nitrite) AM) [facility] AND [id number] 14:33:00 Test Item Value Reference Range Interpretation Comments UA Blood (test code = Small *ABN*(12/15/17 UA Blood) 8:33 AM) [facility] AND [id number] 14:33:00 Test Item Value Reference Range Interpretation Comments UA Leuk Est (test Negative (12/15/17 8:33 code = UA Leuk Est) AM) [facility] AND [id number] 14:33:00 Test Item Value Reference Range Interpretation Comments UA WBC (test code = 3 See_Comment [Automa emerson message] The UA WBC) system which ge nerated this result transmit emerson reference range : <=5. The reference range was not used to interpr et this result as erinn l/abnormal. [facility] AND [id number] 14:33:00 Test Item Value Reference Range Interpretation Comments UA Sq Epi (test code = UA Sq Occasional /LPF Epi) [facility] AND [id number] 14:33:00 Test Item Value Reference Range Interpretation Comments UA Mucus (test code = UA Mucus) Few /LPF [facility] AND [id number] 14:33:00 Test Item Value Reference Range Interpretation Comments UA RBC (test code = 1 See_Comment [Automa emerson message] The UA RBC) system which ge nerated this result transmit emerson reference range : <=2. The reference range was not used to interpr et this result as erinn l/abnormal. [facility] AND [id number] 14:33:00 Test Item Value Reference Range Interpretation Comments UA Turbidity (test code Slight *ABN*(12/15/17 = UA Turbidity) 8:33 AM) [facility] AND [id number] 14:33:00 Test Item Value Reference Range Interpretation Comments UA Spec Grav (test code = UA Spec 1.008 1 Grav) [facility] AND [id number] 14:33:00 Test Item Value Reference Range Interpretation Comments UA Ketones (test code = UA Negative mg/dL Ketones) [facility] AND [id number] 14:33:00 Test Item Value Reference Range Interpretation Comments UA pH (test code = UA pH) 5.0 1 5.0-8.0 [facility] AND [id number] 14:33:00 Test Item Value Reference Range Interpretation Comments UA Bili (test code = Negative *NA*(12/15/17 UA Bili) 8:33 AM) [facility] AND [id number] 14:33:00 Test Item Value Reference Range Interpretation Comments UA Protein (test code = UA Protein) 100 mg/dL [facility] AND [id number] 14:33:00 Test Item Value Reference Range Interpretation Comments Micro? (test code = Performed *NA*(12/15/17 Micro?) 8:33 AM) [facility] AND [id number] 14:33:00 Test Item Value Reference Range Interpretation Comments UA Urobilinogen (test code = UA <=1.0 mg/dL 0.1-1.0 Urobilinogen) [facility] AND [id number] 14:33:00 Test Item Value Reference Range Interpretation Comments UA Glucose (test code = UA Glucose) 50 [facility] AND [id number] 14:33:00 Test Item Value Reference Range Interpretation Comments UA Color (test code = UA Color) STRAW [facility] AND [id number] 14:33:00 Test Item Value Reference Range Interpretation Comments UA Nitrite (test code Negative (12/15/17 8:33 = UA Nitrite) AM) [facility] AND [id number] 14:33:00 Test Item Value Reference Range Interpretation Comments UA Blood (test code = Small *ABN*(12/15/17 UA Blood) 8:33 AM) [facility] AND [id number] 14:33:00 Test Item Value Reference Range Interpretation Comments UA Leuk Est (test Negative (12/15/17 8:33 code = UA Leuk Est) AM) [facility] AND [id number] 14:33:00 Test Item Value Reference Range Interpretation Comments UA WBC (test code = 3 See_Comment [Automa emerson message] The UA WBC) system which ge nerated this result transmit emerson reference range : <=5. The reference range was not used to interpr et this result as erinn l/abnormal. [facility] AND [id number] 14:33:00 Test Item Value Reference Range Interpretation Comments UA Sq Epi (test code = UA Sq Occasional /LPF Epi) [facility] AND [id number] 14:33:00 Test Item Value Reference Range Interpretation Comments UA Mucus (test code = UA Mucus) Few /LPF [facility] AND [id number] 14:33:00 Test Item Value Reference Range Interpretation Comments UA RBC (test code = 1 See_Comment [Automa emerson message] The UA RBC) system which ge nerated this result transmit emerson reference range : <=2. The reference range was not used to interpr et this result as erinn l/abnormal. [facility] AND [id number] 14:33:00 Test Item Value Reference Range Interpretation Comments UA Turbidity (test code Slight *ABN*(12/15/17 = UA Turbidity) 8:33 AM) [facility] AND [id number] 14:33:00 Test Item Value Reference Range Interpretation Comments UA Spec Grav (test code = UA Spec 1.008 1 Grav) [facility] AND [id number] 14:33:00 Test Item Value Reference Range Interpretation Comments UA Ketones (test code = UA Negative mg/dL Ketones) [facility] AND [id number] 14:33:00 Test Item Value Reference Range Interpretation Comments UA pH (test code = UA pH) 5.0 1 5.0-8.0 [facility] [id number] 14:33:00 Test Item Value Reference Range Interpretation Comments UA Bili (test code = Negative *NA*(12/15/17 UA Bili) 8:33 AM) [facility] [id number] 14:33:00 Test Item Value Reference Range Interpretation Comments UA Protein (test code = UA Protein) 100 mg/[facility] [id number] 12:48:00 Test Item Value Reference Range Interpretation Comments CK MB Index (test 1.3 1 See_Comment [Automate d message] The code = CK MB Index) system w [facility] generated this result transmit emerson reference range : <=2.5. The reference range was not used to interpr et this result as erinn l/abnormal. [facility]2018-03-09 12:48:00 Test Item Value Reference Range Interpretation Comments proBNP (test code = 4088 See_Comment [Automa emerson message] The proBNP) system which ge nerated this result tra nsmitted reference range : <=125. The reference r yared was not used to int erpret this result as erinn l/abnormal. [facility]2018-03-09 12:48:00 Test Item Value Reference Range Interpretation Comments Total CK (test code = Total CK) 357 12-[address] [facility] Exam18 [id number] 12:48:00 Test Item Value Reference Range Interpretation Comments CK MB (test code = CK MB) 4.8 0.5-3.6 [facility] [id number] 12:48:00 Test Item Value Reference Range Interpretation Comments Troponin-I (test code no gt See_Comment [Auto mated message] The = Troponin-I) system which g enerated this result transmit emerson reference range : <=0.40. The reference r yared was not used to interpr et this result as erinn l/abnormal. [employer] [id number] 12:48:00 Test Item Value Reference Range Interpretation Comments A/G Ratio (test code = A/G Ratio) 0.8 1 0.7-1.[address] [facility] [employer] [id number] 12:48:00 Test Item Value Reference Range Interpretation Comments Total Protein (test code = Total 7.0 6.4-8.4 Protein) [facility]2018-03-09 12:48:00 Test Item Value Reference Range Interpretation Comments Globulin (test code = Globulin) 3.9 2.7-4.2 [facility]2018-03-09 12:48:00 Test Item Value Reference Range Interpretation Comments Albumin Lvl (test code = Albumin Lvl) 3.1 3.5-5.0 [facility]2018-03-09 12:48:00 Test Item Value Reference Range Interpretation Comments Bili Total (test code = Bili Total) 0.4 0.2-1.3 [facility]2018-03-09 12:48:00 Test Item Value Reference Range Interpretation Comments Alk Phos (test code = Alk Phos) 108 39-136 [facility]2018-03-09 12:48:00 Test Item Value Reference Range Interpretation Comments ALT (test code = ALT) 15 See_Comment [Auto mated message] The system which ge nerated this result transmit emerson reference range : <=65. The reference range was not used to interpr et this result as erinn l/abnormal. [facility]2018-03-09 12:48:00 Test Item Value Reference Range Interpretation Comments AST (test code = AST) 13 See_Comment [Auto mated message] The system which ge nerated this result transmit emerson reference range : <=37. The reference range was not used to interpr et this result as erinn l/abnormal. [facility] [id number] 12:48:00 Test Item Value Reference Range Interpretation Comments B/C Ratio (test code = B/C Ratio) 9 1 6-25 [id number] 12:48:00 Test Item Value Reference Range Interpretation Comments D-Dimer (test code = D-Dimer) 1.17 [facility] [id number] 12:48:00 Test Item Value Reference Range Interpretation Comments CK MB Index (test 1.3 1 See_Comment [Automate d message] The code = CK MB Index) system w [facility] generated this result transmit emerson reference range : <=2.5. The reference range was not used to interpr et this result as erinn l/abnormal. [facility] [id number] 12:48:00 Test Item Value Reference Range Interpretation Comments proBNP (test code = 4088 See_Comment [Automa emerson message] The proBNP) system which ge nerated this result tra nsmitted reference range : <=125. The reference r yared was not used to int erpret this result as erinn l/abnormal. [facility] Exam18 [id number] 12:48:00 Test Item Value Reference Range Interpretation Comments Total CK (test code = Total CK) 357 12-[address] [facility] [id number] 12:48:00 Test Item Value Reference Range Interpretation Comments CK MB (test code = CK MB) 4.8 0.5-3.[address] [facility] [id number] 12:48:00 Test Item Value Reference Range Interpretation Comments Troponin-I (test code no gt See_Comment [Auto mated message] The = Troponin-I) system which g enerated this result transmit emerson reference range : <=0.40. The reference r yared was not used to interpr et this result as erinn l/abnormal. [facility] [employer] [id number] 12:48:00 Test Item Value Reference Range Interpretation Comments A/G Ratio (test code = A/G Ratio) 0.8 1 0.7-1.[address] [facility] [employer] [id number] 12:48:00 Test Item Value Reference Range Interpretation Comments Total Protein (test code = Total 7.0 6.4-8.4 Protein) [facility] [employer] [id number] 12:48:00 Test Item Value Reference Range Interpretation Comments Globulin (test code = Globulin) 3.9 2.7-4.[address] [facility] [employer] [id number] 12:48:00 Test Item Value Reference Range Interpretation Comments Albumin Lvl (test code = Albumin Lvl) 3.1 3.5-5.[address] [facility] [employer] [id number] 12:48:00 Test Item Value Reference Range Interpretation Comments Bili Total (test code = Bili Total) 0.4 0.2-1.[address] [facility] [employer] [id number] 12:48:00 Test Item Value Reference Range Interpretation Comments Alk Phos (test code = Alk Phos) 108 39-136 [facility] [id number] 12:48:00 Test Item Value Reference Range Interpretation Comments ALT (test code = ALT) 15 See_Comment [Auto mated message] The system which ge nerated this result transmit emerson reference range : <=65. The reference range was not used to interpr et this result as erinn l/abnormal. [facility] [id number] 12:48:00 Test Item Value Reference Range Interpretation Comments AST (test code = AST) 13 See_Comment [Auto mated message] The system which ge nerated this result transmit emerson reference range : <=37. The reference range was not used to interpr et this result as erinn l/abnormal. [facility] [id number] 12:48:00 Test Item Value Reference Range Interpretation Comments B/C Ratio (test code = B/C Ratio) 9 1 6-25 [facility] [id number] 12:48:00 Test Item Value Reference Range Interpretation Comments D-Dimer (test code = D-Dimer) 1.17 [facility] [id number] 12:48:00 Test Item Value Reference Range Interpretation Comments CK MB Index (test 1.3 1 See_Comment [Automate d message] The code = CK MB Index) system w [facility] generated this result transmit emerson reference range : <=2.5. The reference range was not used to interpr et this result as erinn l/abnormal. [facility] [id number] 12:48:00 Test Item Value Reference Range Interpretation Comments proBNP (test code = 4088 See_Comment [Automa emerson message] The proBNP) system which ge nerated this result tra nsmitted reference range : <=125. The reference r yared was not used to int erpret this result as erinn l/abnormal. [facility] [id number] 12:48:00 Test Item Value Reference Range Interpretation Comments Total CK (test code = Total CK) 357 12-191 [facility] [id number] 12:48:00 Test Item Value Reference Range Interpretation Comments CK MB (test code = CK MB) 4.8 0.5-3.6 [facility] [id number] 12:48:00 Test Item Value Reference Range Interpretation Comments Troponin-I (test code no gt See_Comment [Auto mated message] The = Troponin-I) system which g enerated this result transmit emerson reference range : <=0.40. The reference r yared was not used to interpr et this result as erinn l/abnormal. [facility] [id number] 12:48:00 Test Item Value Reference Range Interpretation Comments A/G Ratio (test code = A/G Ratio) 0.8 1 0.7-1.6 [facility] [id number] 12:48:00 Test Item Value Reference Range Interpretation Comments Total Protein (test code = Total 7.0 6.4-8.4 Protein) [facility]2018-03-09 12:48:00 Test Item Value Reference Range Interpretation Comments Globulin (test code = Globulin) 3.9 2.7-4.2 [facility] [id number] 12:48:00 Test Item Value Reference Range Interpretation Comments Albumin Lvl (test code = Albumin Lvl) 3.1 3.5-5.0 [facility] [id number] 12:48:00 Test Item Value Reference Range Interpretation Comments Bili Total (test code = Bili Total) 0.4 0.2-1.3 [facility] [id number] 12:48:00 Test Item Value Reference Range Interpretation Comments Alk Phos (test code = Alk Phos) 108 39-136 [facility] [id number] 12:48:00 Test Item Value Reference Range Interpretation Comments ALT (test code = ALT) 15 See_Comment [Auto mated message] The system which ge nerated this result transmit emerson reference range : <=65. The reference range was not used to interpr et this result as erinn l/abnormal. [facility] [id number] 12:48:00 Test Item Value Reference Range Interpretation Comments AST (test code = AST) 13 See_Comment [Auto mated message] The system which ge nerated this result transmit emerson reference range : <=37. The reference range was not used to interpr et this result as erinn l/abnormal. [facility] [id number] 12:48:00 Test Item Value Reference Range Interpretation Comments B/C Ratio (test code = B/C Ratio) 9 1 6-25 [id number] 12:48:00 Test Item Value Reference Range Interpretation Comments D-Dimer (test code = D-Dimer) 1.17 [facility]
[2022-10-29 12:53] LABS: Absolute Lymphocytes (CBC) 0.6 K/uL (0.7-4.9); Hematocrit 31.5 % (39.6-49.0); Lymphocytes % 8.2 % (15.3-44.8); MCV 89.2 fL (80-100); MPV 7.2 fL (7.6-11.3); RBC Red Blood Cell Count 3.54 M/uL (4.33-5.43)
[2022-10-29 13:02] LABS: Protime INR 1.01
[2022-10-29 13:13] LABS: Albumin 3.9 g/dL (3.4-5.0); Bilirubin Total 0.3 mg/dL (0.2-1.0); Protein, Total 7.9 g/dL (6.4-8.2)
[2022-10-29 13:14] LABS: Potassium 5.7 mmol/L (3.5-5.1)
--- NOTE | 2022-10-29 13:23 | RAD REPORT ---
EXAM DESCRIPTION: RAD - Chest Single View - 10/29/2022 12:51 pm CLINICAL HISTORY: fever, hypoxia COMPARISON: Chest Pa And Lat (2 Views) dated 04/21/2022; Chest Single View dated 04/08/2022; Chest Sing le View dated 08/25/2021; Chest Single View dated 07/01/2021 FINDINGS: Lines: None. Lungs: No evidence of edema or pneumonia. Pleural: No significant pleural effusions or pneumothorax. Cardiac: Mild cardiomegaly . Mediastinum: Within normal limits. Bones: No acute fractures. Other: None IMPRESSION: No acute cardiopulmonary disease.
[2022-10-29 13:41] LABS: SARS-COV-2 RT PCR NEGATIVE (NEGATIVE)
--- NOTE | 2022-10-29 14:24 | ER ---
Nurse's Notes [facility] Name: Alex Cagle Age: 62 yrs Sex: Male : 1960 Arrival Date: 10/29/2022 Time: 11:51 Bed 14 Private MD: Diagnosis: Fever, unspecified;Altered mental status, unspecified;End stage renal disease;Hypoxemia Presentation: 10/29 11:51 Chief complaint: EMS states: generalized weakness, pt was able to stand with assist, aa5 EMS reports O2 sat was 72% RA and increased to 97% via NC 6 L. Pt denies cough, denies diarrhea, denies vomiting. Reports last dialysis was yesterday. 11:51 Coronavirus screen: fever. Ebola Screen: Patient denies travel to an Ebola-affected [facility] area in the 21 days before illness onset. Initial Sepsis Screen: Does the patient meet any 2 criteria? Temp <36.0*C (96.8*F)) or > 38.3*C (100.9*F). HR > 90 bpm. Does the patient have a suspected source of infection? No. Patient's initial sepsis screen is negative. Risk Assessment: Do you want to hurt yourself or someone else? Patient reports no desire to harm self or others. Onset of symptoms was October 2022. 11:51 [facility] Ar[facility] 11:51 Care prior to arrival: IV initiated. 20 GA, in the right hand. aa5 11:51 Acuity: DEJAN 2 aa5 Historical: - Allergies: 11:57 NKA; aa5 - PMHx: 11:57 CHF; Diabetes - NIDDM; ESRD; Hypertension; insomnia; aa5 - PSHx: 11:57 bilateral knee repairs; R shoulder; aa5 - Immunization history:: Adult Immunizations unknown. - Social history:: Smoking status: Patient denies any tobacco usage or history of. - Family history:: not pertinent. - Hospitalizations: : No recent hospitalization is reported. Screenin:30 [facility] ED Fall Risk Assessment (Adult) History of falling in the last 3 months, kc6 including since admission No falls in past 3 months (0 pts) Confusion or Disorientation Yes (5 pts) Intoxicated or Sedated No (0 pts) Impaired Gait No (0 pts) Mobility Assist Device Used No (0 pt) Altered Elimination No (0 pt) Score/Fall Risk Level 3 or more points = High Risk Oriented to surroundings, Maintained a safe environment, Educated pt \T\ family on fall prevention, incl call for assistance when getting out of bed, Assessed \T\ reinforced patient's understanding of fall precautions, Hourly rounding (assess needs \T\ fall precautionary measures) done. Abuse screen: Denies threats or abuse. Denies injuries from another. Nutritional screening: No deficits noted. Tuberculosis screening: No symptoms or risk factors identified. Assessment: 12:29 General: Appears in no apparent distress. comfortable, Behavior is calm, cooperative, kc6 appropriate for age. Pain: Denies pain. Neuro: Linder Agitation-Sedation Scale (RASS): -1 Drowsy Level of Consciousness is obeys commands, Oriented to person. Cardiovascular: Heart tones S1 S2 present Capillary refill < 3 seconds. Respiratory: Airway is patent Trachea midline Respiratory effort is even, unlabored, Respiratory pattern is regular, symmetrical, Breath sounds are clear bilaterally. GI: No signs and/or symptoms were reported involving the gastrointestinal system. : No signs and/or symptoms were reported regarding the genitourinary system. EENT: No signs and/or symptoms were reported regarding the EENT system. Derm: No signs and/or symptoms reported regarding the dermatologic system. Skin is intact, Skin is pink, warm \T\ dry. Musculoskeletal: No signs and/or symptoms reported regarding the musculoskeletal system. Circulation, motion, and sensation intact. Capillary refill < 3 seconds, Range of motion: intact in all extremities. 13:29 Reassessment: Patient appears in no apparent distress at this time. No changes from [facility] previously documented assessment. Patient and/or family updated on plan of care and expected duration. Pain level reassessed. 14:29 Reassessment: Patient appears in no apparent distress at this time. No changes from [facility] previously documented assessment. Patient and/or family updated on plan of care and expected duration. Pain level reassessed. 15:29 Reassessment: attempted to call report to second floor. stated the nurse is in another [facility] patients room and will call me back. Reassessment: Patient appears in no apparent distress at this time. No changes from previously documented assessment. Patient and/or family updated on plan of care and expected duration. Pain level reassessed. 16:29 Reassessment: Patient appears in no apparent distress at this time. No changes from kc6 previously documented assessment. Patient and/or family updated on plan of care and expected duration. Pain level reassessed. 17:29 Reassessment: Patient appears in no apparent distress at this time. No changes from kc6 previously documented assessment. Patient and/or family updated on plan of care and expected duration. Pain level reassessed. Patient is alert, oriented x 3, equal unlabored respirations, skin warm/dry/pink. 17:51 Reassessment: attempted to call report to second floor. stated the nurse is giving kc6 wound care to a patient and will have to call me back. Vital Signs: 11:51 BP 170 / 75; Pulse 97; Resp 20 S; Temp 101.2(O); Pulse Ox 97% on 6 lpm NC; aa5 12:43 Weight 97.52 kg (R); Height 5 ft. 7 in. (170.18 cm) (R); kc6 13:46 BP 152 / 69; Pulse 90; Resp 13 S; Temp 99.3(O); Pulse Ox 98% on R/A; kc6 14:46 BP 160 / 77; Pulse 84; Resp 18 S; Pulse Ox 100% on R/A; kc6 15:35 BP 142 / 74; Pulse 84; Resp 20 S; Temp 97.9(O); Pulse Ox 100% on 2 lpm NC; Pain 0/10; kc6 16:30 BP 142 / 97; Pulse 83; Pulse Ox 98% on 2 lpm NC; kc6 12:43 Body Mass Index 33.67 (97.52 kg, 170.18 cm) kc6 ED Course: 11:51 Patient arrived in ED. aa5 11:51 Arm band placed on. aa5 11:57 Triage completed. aa5 12:15 Gerardo Kovacs PA is PHCP. jmm 12:15 Rodríguez Olguin MD is Attending Physician. jmm 12:24 Jessica Alex, KATIANA is Primary Nurse. kc6 12:31 Patient has correct armband on for positive identification. Bed in low position. Call kc6 light in reach. Side rails up X2. 12:52 Chest Single View XRAY In Process Unspecified. EDMS 13:00 EKG done, by ED staff. bc6 14:23 Will Olguin MD is Hospitalizing Provider. rn 16:50 No redness/swelling at site. Pressure dressing applied, Pt pulled out IV to R hand, aa5 catheter intact, bleeding controlled. 16:53 Inserted saline lock: 20 gauge in right forearm, using aseptic technique. aa5 18:09 No provider procedures requiring assistance completed. kc6 Administered Medications: 12:43 Drug: Tylenol 650 mg Route: PO; kc6 15:46 Follow up: Response: No adverse reaction; Temperature is decreased kc6 Medication: 18:10 VIS not applicable for this client. kc6 Outcome: 14:23 Decision to Hospitalize by Provider. rn 18:09 Admitted to Med/surg accompanied by tech, via stretcher, room 229, with oxygen, with kc6 chart, Report called to KATIANA Donahue 18:09 Condition: stable 18:09 Instructed on the need for admit. 18:10 Patient left the ED. kc6 Signatures: Dispatcher [employer] EDMS Gerardo Kovacs PA PA jmm Rodríguez Olguin MD MD rn Calderon, Audri, RN RN [id number] Jessica Alex RN RN kc6 Rajani Acosta 6 Corrections: (The following items were deleted from the chart) 11:58 11:57 PSHx: right sholder; aa5 aa5 11:59 11:51 Acuity: DEJAN 3 aa5 aa5
--- NOTE | 2022-10-29 14:24 | EDPHYS ---
Physician Documentation [facility] Name: Alex Cagle Age: 62 yrs Sex: Male : 1960 Arrival Date: 10/29/2022 Time: 11:51 Bed 14 Private MD: ED Physician Rodríguez Olguin HPI: 10/29 13:45 This 62 yrs old Male presents to ER via EMS with complaints of AMS, fever. rn 13:45 The patient presents with confusion, decreased responsiveness, disorientation. Onset: rn The symptoms/episode began/occurred at an unknown time. Possible causes: unknown. Associated signs and symptoms: Pertinent positives: confusion, weakness, Pertinent negatives: abdominal pain, blurred vision, chest pain, headache, seizure, vomiting. Current symptoms: In the emergency department the patient's symptoms are unchanged from the initial presentation. The patient has not experienced similar symptoms in the past. The patient has not recently seen a physician. EMS reports missed dialysis x 2 recently, went today and was confused, febrile, didn't know where he was. No cough. + mild sob. No abd pain. No vomiting/diarrhea/rash. NO neck pain or headache. EMS reports low oxygen.. Historical: - Allergies: 11:57 NKA; aa5 - PMHx: 11:57 CHF; Diabetes - NIDDM; ESRD; Hypertension; insomnia; aa5 - PSHx: 11:57 bilateral knee repairs; R shoulder; aa5 - Immunization history:: Adult Immunizations unknown. - Social history:: Smoking status: Patient denies any tobacco usage or history of. - Family history:: not pertinent. - Hospitalizations: : No recent hospitalization is reported. 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 Exam: 13:45 Constitutional: This is a well developed, well nourished patient who is awake, rn confused, and in no acute distress. Head/Face: Normocephalic, atraumatic. Eyes: Periorbital areas with no swelling, redness, or edema. ENT: dry MM Neck: NO meningismus Cardiovascular: Regular rate and rhythm. No pulse deficits. Respiratory: No increased work of breathing, no retractions or nasal flaring. Abdomen/GI: Soft, non-tender Skin: Warm, dry, no skin rash MS/ Extremity: Pulses equal, no cyanosis. Neuro: Awake and alert, GCS 15, oriented to person, place, not time. Cranial nerves II-XII grossly intact. Motor strength 4/5 in all extremities. Sensory grossly intact. 15:27 ECG was reviewed by the Attending Physician. rn Vital Signs: 11:51 BP 170 / 75; Pulse 97; Resp 20 S; Temp 101.2(O); Pulse Ox 97% on 6 lpm NC; aa5 12:43 Weight 97.52 kg (R); Height 5 ft. 7 in. (170.18 cm) (R); kc6 13:46 BP 152 / 69; Pulse 90; Resp 13 S; Temp 99.3(O); Pulse Ox 98% on R/A; kc6 14:46 BP 160 / 77; Pulse 84; Resp 18 S; Pulse Ox 100% on R/A; kc6 15:35 BP 142 / 74; Pulse 84; Resp 20 S; Temp 97.9(O); Pulse Ox 100% on 2 lpm NC; Pain 0/10; kc6 16:30 BP 142 / 97; Pulse 83; Pulse Ox 98% on 2 lpm NC; kc6 12:43 Body Mass Index 33.67 (97.52 kg, 170.18 cm) kc6 MDM: 12:16 Patient medically screened. rn 14:21 Differential Diagnosis: electrolyte abnormality, sepsis, volume depletion, viral rn infection, pneumonia, COVID, Flu. Data reviewed: vital signs, nurses notes, lab test result(s), EKG, radiologic studies, plain films, and as a result, I will admit patient. Management of patient was discussed with the following: Radiation Monitor: Discussed case with Dr. Russ, wants patient admitted, will admit to hospitalist service for further care. . Test considered but Not performed: Other Details LP considered but not done at this time, normal WBC, no meningeal signs, will further discuss need with hospitalist service once evaluated. . Counseling: I had a detailed discussion with the patient and/or guardian regarding: the historical points, exam findings, and any diagnostic results supporting the discharge/admit diagnosis, lab results, radiology results, the need for further work-up and treatment in the hospital. Response to treatment: the patient's symptoms have mildly improved after treatment. 14:24 ED course: Patient currently without a source of infection and does not have evidence rn of end organ damage at this time. . 10/29 12:17 Order name: Blood Culture Adult (2) rn 10/29 12:17 Order name: CBC with Diff; Complete Time: 13: rn 10/29 12:17 Order name: CMP; Complete Time: 13: rn 10/29 12:17 Order name: Lactate w/ 2H reflex if indic.; Complete Time: 13: rn 10/29 12:17 Order name: Protime (+inr); Complete Time: 13: rn 10/29 12:17 Order name: Ptt, Activated; Complete Time: 13: rn 10/29 12:17 Order name: Chest Single View XRAY; Complete Time: 13: rn 10/29 12:17 Order name: BNP; Complete Time: 13: rn 10/29 12:17 Order name: COVID-19/FLU A+B; Complete Time: 13:44 rn 10/29 13:10 Order name: Glucose, Ancillary Testing; Complete Time: 13: EDGA 10/29 16:03 Order name: CT Chest For PE Angio rn 10/29 16:04 Order name: Extrem Venous W Compression Gilmer US rn 10/29 16:47 Order name: Ammonia; Complete Time: 18:07 EDMS 10/29 17:41 Order name: CT; Complete Time: 18:07 EDGA 10/29 12:17 Order name: EKG; Complete Time: 12:17 rn 10/29 12:17 Order name: Accucheck; Complete Time: 12:52 rn 10/29 12:17 Order name: Cardiac monitoring; Complete Time: 12:43 rn 10/29 12:17 Order name: EKG - Nurse/Tech; Complete Time: 12:52 rn 10/29 12:17 Order name: IV Saline Lock - Large Bore; Complete Time: 12:51 rn 10/29 12:17 Order name: Labs collected and sent; Complete Time: 12:51 rn 10/29 12:17 Order name: O2 Per Protocol; Complete Time: 12:29 rn 10/29 12:17 Order name: O2 Sat Monitoring; Complete Time: 12:29 rn 10/29 12:17 Order name: Vital Signs; Complete Time: 12:43 rn 10/29 18:06 Order name: [facility] EC:27 Rate is 92 beats/min. Rhythm is regular. QRS [place]app[place] is Normal. AK interval is normal. QRS rn interval is normal. QT interval is normal. No Q waves. T waves are Normal. No ST changes noted. Clinical impression: Normal ECG. Interpreted by me. Reviewed by me. Administered Medications: 12:43 Drug: Tylenol 650 mg Route: PO; kc6 15:46 Follow up: Response: No adverse reaction; Temperature is decreased kc6 Disposition Summary: 10/29/22 14:23 Hospitalization Ordered Hospitalization Status: Observation rn Provider: Will Olguin rn Location: Telemetry/MedSurg (observation) rn Condition: Stable rn Problem: new rn Symptoms: have improved rn Bed/Room Type: Standard rn Room Assignment: 229(10/29/22 16:13) dw Diagnosis - Fever, unspecified rn - Altered mental status, unspecified rn - End stage renal disease rn - Hypoxemia rn Forms: - Medication Reconciliation Form rn - SBAR form rn Signatures: Dispatcher [facility] Viviana Montano RN RN dw Nieto, Roman, MD MD rn Calderon, Audri, RN RN Jessica Medley RN RN kc6 Corrections: (The following items were deleted from the chart) 11:58 11:57 PSHx: right sholder; river holman 16:13 14:23 rn george
[2022-10-29] MEDS ORDERED: ONDANSETRON 4 MG/2 ML VIAL IV PRN (15:50)
--- NOTE | 2022-10-29 16:10 | P.HP ---
Certification for Inpatient Patient admitted to: Observation With expected LOS: <2 Midnights Patient will require the following post-hospital care: None Practitioner: I am a practitioner with admitting privileges, knowledge of patient current condition, hospital course, and medical plan of care. Services: Services provided to patient in accordance with Admission requirements found in Title 42 Section 412.3 of the Code of Federal Regulations <Johnnie Shipman - Last Filed: 10/29/22 15:56> Patient History Date of Service: 10/29/22 Primary Care Provider: nila Reason for admission: AMS, missed HD History of Present Illness: 61-year-old gentleman with a history of end-stage renal disease on hemodialysis MWF, CHF, hypertension, diabetes who presents to the emergency department with a complaint of AMS, fever and missed dialysis x2. Patient was evaluated at the bedside, patient remained confused and disoriented. Unable to obtain review of system and history. Per ER, the patient presented with confusion, decreased responsiveness and disorientation. It was reported by EMS that patient missed dialysis twice. Unsure of why patient missed dialysis. In the ER, patient had fever of 101.2. Work-up in the emergency department revealed hyperkalemia with a potassium of 5.7, sodium 1129, creatinine of 11.1. BNP 10, 334 with chest x-ray negative findings. Patient will admitted under the care of Dr. Olguin. Nephrology consulted for further recommendations. - Past Medical/Surgical History Diabetic: Yes -: End-stage renal disease on hemodialysis -: Hypertension -: HTN -: DM -: Peritoneal dialysis port -: shoulder surgery Psychosocial/ Personal History: Patient with 5 children. - Family History Father -: Heart disease - Social History Alcohol use: No CD- Drugs: No Caffeine use: No <Johnnie Shipman - Last Filed: 10/29/22 15:56> Date of Service: 10/29/22 <Will Olguin - Last Filed: 10/29/22 22:30> Allergies No Known Allergies Allergy (Verified 01/01/21 21:09) Home Medications: RX: Amlodipine Besylate/Benazepril [Amlodipine-Benazepril 10-20 mg] 1 tab PO TID 11/27/20 RX: Codeine/APAP [Tylenol #3*] 60 mg PO TID 04/08/22 RX: Fish Oil/Borage/Flax/Om3,6,9 1 [Rockfall 3-6-9 1,200 mg Softgel] 1 tab PO DAILY 04/08/22 RX: Folic Acid/Vit B Complex and C [Fauzia-Conor Tablet] 1 tab PO DAILY 04/08/22 RX: Heparin [Heparin 1,000 units/mL *] 4,000 unit IV EVERY HD vial 04/08/22 RX: Sucroferric Oxyhydroxide [Velphoro] 500 mg PO AC 04/08/22 Carboxymethylcellulose Sodium [Thera Tears] 1 each OP QID 60 Days #1 droperette 04/25/22 RX: Hydrocodone 5/APAP 325 [Frankton 5/325*] 1 tab PO Q6H PRN #12 tab 04/25/22 RX: Warfarin Sodium [Coumadin*] 7.5 mg PO DAILY 5 PM #30 tab 04/25/22 RX: carvediloL [Coreg*] 3.125 mg PO BID 6AM 6PM #60 tab 04/25/22 Review of Systems is unable to be obtained <Johnnie Shipman - Last Filed: 10/29/22 15:56> Physical Examination - Vital Signs Temperature: 99.3 F Blood Pressure: 152/69 Pulse: 90 Respirations: 20 Pulse Ox (%): 98 - Physical Exam General: Alert, Confused HEENT: Atraumatic, Normocephalic Neck: Supple Respiratory: Diminished Cardiovascular: No edema Capillary refill: <2 Seconds Gastrointestinal: Normal bowel sounds Musculoskeletal: No clubbing, No swelling Integumentary: No rashes, No breakdown, Other (Left AV fistula) Lymphatics: No axilla or inguinal lymphadenopathy - Studies Laboratory Data (last 24 hrs) 10/29/22 12:35: PT 11.1, INR 1.01, APTT 35.1 10/29/22 12:35: Sodium 129 L, Potassium 5.7 H*, BUN 50 H, Creatinine 11.10 H*, Glucose 105, Total Bilirubin 0.3, AST 18, ALT 24, Alkaline Phosphatase 109 10/29/22 12:35: WBC 7.40, Hgb 10.3 L, Hct 31.5 L, Plt Count 233 <Johnnie Shipman - Last Filed: 10/29/22 15:56> - Studies Laboratory Data (last 24 hrs) 10/29/22 12:35: PT 11.1, INR 1.01, APTT 35.1 10/29/22 12:35: Sodium 129 L, Potassium 5.7 H*, BUN 50 H, Creatinine 11.10 H*, Glucose 105, Total Bilirubin 0.3, AST 18, ALT 24, Alkaline Phosphatase 109 10/29/22 12:35: WBC 7.40, Hgb 10.3 L, Hct 31.5 L, Plt Count 233 <Will Olguin - Last Filed: 10/29/22 22:30> Assessment and Plan - Plan Assessment AMS Fever End-stage renal disease on dialysis Hypertension Hyperkalemia CHF Plan Nephrology consulted, recommandations appreciated On tele, repeat BMP in the AM BCX pending BUE venous doppler pending CTA pending sliding scale insulin and accuchecks Reconcile and continue home medications renal diet, fluid restrict 1500cc daily DVT ppx- Heparin Discharge Plan: Home Plan to discharge in: 48 Hours - Advance Directives Does patient have a Living Will: No Does patient have a Durable POA for Healthcare: Yes - Code Status/Comfort Care Code Status Assessed: Yes Critical Care: No Time Spent Managing Pts Care (In Minutes): 50 <Johnnie Shipman - Last Filed: 10/29/22 15:56> - Plan Does not know why he is here, somewhat agitated acute metaobolic encephalopathy - secondary to uremia ESRD on HD, nephro consulted for HD reportedly febrile, tachycardic, hypoxic when he presented to ED h/o upper extremity DVT check U/S CTA - eval for infectious etiology, r/o PE unclear etiology of fever confirm home meds, restart if appropriate <Will Olguin - Last Filed: 10/29/22 22:30>
[2022-10-29] MEDS: HEPARIN 5000 UNIT/ML 1 ML VIAL SQ SCH (17:00)
--- NOTE | 2022-10-29 17:41 | RAD REPORT ---
EXAM DESCRIPTION: CT - Chest For Pe Angio - 10/29/2022 5:24 pm CLINICAL HISTORY: hx of dvt, rule out PE COMPARISON: No comparisons TECHNIQUE: Dynamically enhanced axial 3 mm thick images of the chest were obtained during administra tion of <100> mL Isovue 370 IV contrast. Coronal and oblique reconstruction images were generated and reviewed. Exam utilizes a protocol for optimal evaluation of pulmonary arterial tree. Maximum intensity projections 3D imaging was utilized All CT scans are performed using dose optimization technique as appropriate and may include automated exposure control or mA/KV adjustment according to patient size. FINDINGS: Chest Wall: No suspicious thyroid nodules or pathologic lymphadenopathy. Lungs: Dependent atelectasis and/or scarring. Pleura: No significant effusions or pneumothorax. Mediastinum/michelle: No pathologic lymphadenopathy. Pulmonary arteries/Aorta: Limited evaluation of the segmental and subsegmental pulmonary arteries. Th is is both secondary to motion and the patient's arms. No central pulmonary embolus identified Ascend ing thoracic aortic aneurysm measuring 4 cm. Heart: No significant pericardial effusion. Normal heart size. Multi-vessel coronary artery disease. Aortic valve calcifications. Upper abdomen: No acute abnormality. Bones: No acute abnormality. IMPRESSION: Limited evaluation for pulmonary embolism due to streak artifact from the patient's arm and motion. No central pulmonary embolus identified. The segmental and subsegmental pulmonary arterie s cannot be adequately evaluated due to motion. Ascending thoracic aortic aneurysm. Aortic valve calcifications also noted. Suggest echocardiography for further evaluation which need not be emergent.
--- NOTE | 2022-10-29 18:05 | RAD REPORT ---
EXAM DESCRIPTION: US - Extrem Venous W Compress Gilmer - 10/29/2022 5:55 pm CLINICAL HISTORY: SWELLING COMPARISON: Upper Ext Artery Uni Gilmer dated 04/08/2022 TECHNIQUE: Real-time sonographic evaluation of the lower extremity deep venous systems was performed using color Doppler, grayscale, and compression. FINDINGS: Bilateral lower extremities. Normal compressibility, flow augmentation, phasic flow and spontaneous flow is identified in both the left and right lower extremity deep venous systems. No intraluminal filling defects seen. IMPRESSION: No DVT in either lower extremity.
--- NOTE | 2022-10-29 18:11 | RAD REPORT ---
EXAM DESCRIPTION: US - UPPER EXTREMITY VENOUS UNILATE - 10/29/2022 5:55 pm CLINICAL HISTORY: SWELLING COMPARISON: Extrem Venous W Compress Gilmer dated 10/29/2022; Chest For Pe Angio dated 10/29/2022; Chest Single View dated 10/29/2022; Upper Ext Artery Uni Gilmer dated 04/08/2022 FINDINGS: Color Doppler, grayscale, and spectral analysis was performed. Patent arteriovenous fistula. Left subclavian vein is patent. The left axillary vein is patent. The b rachial vein is patent. The fistula is patent. The ulnar vein is patent. The basilic and cephalic vei ns were not visualized. Linear nonocclusive filling defects in the left internal jugular vein visualized on grayscale. IMPRESSION: Patent arteriovenous fistula in the left upper extremity. Linear nonocclusive filling defect in the left internal jugular vein consistent with chronic thrombus . It was present on the prior ultrasound from 04/08/2022. This may have been secondary to presence of a prior central venous line.
[2022-10-29] MEDS ORDERED: VANCOMYCIN 1 GM in NA CHLORIDE 0.9% 250 ML IVPB SCH (20:00)
[2022-10-29] MEDS: VANCOMYCIN 1.75 GM in NA CHLORIDE 0.9% 500 ML IVPB SCH (20:00)
[2022-10-29 22:03] LABS: Thyroid Stimulating Hormone 0.39 uIU/mL (0.358-3.740)
[2022-10-29 22:11] LABS: Arterial Blood Carboxyhemoglob 1.8 % (0-1.5); Blood Gas Oxyhemoglobin 90.6 % (94-97); Blood O2 Saturation 93.3 % (92-98.5)
[2022-10-29 23:09] VITALS: BMI 30.5
[2022-10-29 23:26] LABS: Potassium 3.7 mmol/L (3.5-5.1)
[2022-10-30] MEDS ORDERED: PIPERACIL/TAZO 3.375 GM VIAL IV ONE ×2 (00:15→22:49)
[2022-10-30] MEDS ORDERED: NA CHLORIDE 0.9% 100 ML ONE (00:17)
[2022-10-30] MEDS: PIPER TAZO 3.375 GM in NA CHLORIDE 0.9% 100 ML IV SCH ×4 (00:19→22:54)
[2022-10-30] MEDS ORDERED: NA CHLORIDE 0.9% 500 ML ONE (01:31)
[2022-10-30] MEDS ORDERED: VANCOMYCIN 1 GM/VIAL ONE (01:31)
[2022-10-30] MEDS: HEPARIN 5000 UNIT/ML 1 ML VIAL SQ SCH ×3 (01:32→17:35)
[2022-10-30] MEDS ORDERED: WATER FOR INJ,STERILE 20 ML ONE (01:32)
[2022-10-30] MEDS: VANCOMYCIN 1.75 GM in NA CHLORIDE 0.9% 500 ML IVPB SCH (01:34)
--- NOTE | 2022-10-30 02:18 | CON ---
Date of Consultation: 10/29/2022 Chief Complaint: Altered mental status. Patient missed dialysis this week, fluid overload. Patient was to have dialysis today, although due to altered mental status, family called 911. Patient was brought to the hospital. History Of Present Illness: The patient is a -ipmu-scv man with history of end-stage renal disease, on hemodialysis on Monday, Monday, Monday, congestive heart failure, hypertension, nonco mpliance, diabetes mellitus, history of renal osteodystrophy, hypertension. He was found to have fev er associated with altered mental status. He was arousable, followed some command, but he was forget ful and confused. The patient was found to have hypoxemia on room air and O2 nasal cannula was start ed by EMS crew. The patient cannot provide review of systems and cannot provide previous history. H miquel presented to the ER with confusion, decreased responsiveness, and disorientation. Patient was foun d to have fever 101.2 when the temperature was checked during the ER workup and emergency dialysis wa s scheduled for hyperkalemia, potassium of 5.7. Sodium level was 129 corresponding with fluid overlo ad and dilutional hyponatremia. Creatinine level 11.1. BNP 10,334. Chest x-ray did not show signif icant infiltrates. Initiated workup was done with PE evaluation to rule out PE, workup was schedule d by primary team. The patient has had a venous Doppler done in upper and lower extremities previous ly. He had history of upper extremity deep vein thrombosis and he was started on Coumadin last year, although due to noncompliance apparently he was not taking Coumadin recently, INR in the ER is subth erapeutic. The patient cannot provide review of systems, although he denies pain and denies shortness of breath. Past Medical History: End-stage renal disease, hypertension, diabetes mellitus with renal manifestat ion, peritoneal dialysis port placement and peritoneal dialysis treatment previously which was termin ated when patient was switched to hemodialysis, shoulder surgery, DVT previously, treated with Coumad in, renal osteodystrophy, obesity, anemia in CKD. Family History: Father heart disease. Social History: Denies tobacco, alcohol, illicit drugs. Physical Examination: General: Patient is confused, although alert, follows some commands. Eyes: Anicteric sclerae. EOMI. Ears, Nose, And Throat: Oral mucosa moist. No pallor. Neck: Supple. No JVD. Lungs: Clear to auscultation bilaterally. Heart: S1, S2. Abdomen: Obese, soft, nontender. No rebound. No guarding. Extremities: Edema present in both legs. Neurologic: Moving extremities. Cranial nerves intact. Lab Work: PT 11.1, INR 1.018, PTT 35.1. Sodium 129, potassium 5.7, BUN 60, creatinine 11.1, glucose 105, AST 24, ALT 105. WBC 7.4, hemoglobin 10.3, platelet count 233. Assessment And Plan: 1.Altered mental status, fever, disorientation, congestive heart failure, hypertension, hyperkalemia , end-stage renal disease on hemodialysis. Patient has hyperkalemia and emergent dialysis, was sched uled for metabolic clearance to treat hyperkalemia and provide ultrafiltration for management of arianna estive heart failure. BNP remains elevated. Patient underwent workup for possible PE and CTA was do ne. Further recommendation as far as treatment with anticoagulant per primary team. 2.Hypertension. Monitor blood pressure closely during dialysis and advance ultrafiltration as neede d. 3.Hyponatremia, dilutional. Continue p.o. fluid restriction 1500 mL per day. 4.Renal osteodystrophy. Continue renal diet and binders although patient may need to be evaluated b y Speech Therapy to rule out aspiration and swallow test needs to be done. 5.Diabetes mellitus. Monitor glucose level. Continue insulin, sliding scale, and Accu-Ch eks. EB/MODL Voice ID: [id number] Report ID: [id number]
[2022-10-30 06:23] LABS: Absolute Lymphocytes (CBC) 0.7 K/uL (0.7-4.9); Hematocrit 30.7 % (39.6-49.0); Lymphocytes % 11.7 % (15.3-44.8); MCV 88.1 fL (80-100); MPV 7.3 fL (7.6-11.3); RBC Red Blood Cell Count 3.49 M/uL (4.33-5.43)
[2022-10-30 06:39] LABS: Magnesium 2.4 mg/dL (1.6-2.4); Phosphorus 6.4 mg/dL (2.5-4.9)
--- NOTE | 2022-10-30 07:38 | P.PN ---
Date of Service: 10/30/22 Subjective: more alert/oriented x2; does not recall events leading to hospitalization still with some mild confusion denies pain/ nausea/ vomiting / diarrhea ROS: 10 point ROS as noted above, otherwise negative Physical exam GEN: Alert, orientedx2, NAD HEENT: Normal conjunctiva, sclera anicteric CV: Regular rate and rhythm, 1+ edema Pulm: mild labored respirations on 2L NC ABD: Soft, nontender, nondistended Neuro: Normal speech, confused, moves all extremities Problem List Acute metabolic encephalopathyl secondary to uremia Fever of unknown origin ESRD on HD Hypertension Hyperkalemia CHF, chronic encephalopathy multifactorial, most likely due to uremia, possibly impacted by sepsis as well Blood cultures obtained, continue empiric Zosyn Mentation improved after 1 round of dialysis, but does not appear to be back to baseline yet CTA negative for PE Left upper extremity Doppler noted left IJ thrombus, previously seen Possible aspiration given his encephalopathy, speech therapy consulted, continue Zosyn as noted above Confirm home medications, restart as appropriate Fluid restriction VTE: Heparin subcutaneous Code: Full Dispo: Home, 2-3 days
--- NOTE | 2022-10-30 10:28 | RAD REPORT ---
EXAM DESCRIPTION: CT - Head Brain Wo Cont - 10/30/2022 10:11 am CLINICAL HISTORY: ams Headache, drowsiness, alteration of awareness COMPARISON: Head Brain Wo Cont dated 11/26/2020; Facial Bones W/ Mpr dated 11/24/2020 TECHNIQUE: All CT scans are performed using dose optimization technique as appropriate and may inclu de automated exposure control or mA/KV adjustment according to patient size. FINDINGS: No intracranial hemorrhage, hydrocephalus or extra-axial fluid collection.[id number] chronic periventricular and deep white matter microvascular ischemic changes.No areas of brain edema or evidence of midline shift. The paranasal sinuses and mastoids are clear. The calvarium is intact. IMPRESSION: No acute intracranial abnormality.
--- NOTE | 2022-10-30 10:30 | RAD REPORT ---
EXAM DESCRIPTION: CT - Stone Protocol - 10/30/2022 10:15 am CLINICAL HISTORY: Flank pain. uti, fever , stone COMPARISON: CT ABDOMEN W WO dated 02/19/2009 TECHNIQUE: Axial images were obtained without oral or IV contrast. Lack of contrast limits solid org an and vascular assessment. The [id number] spans the entirety of the system partially obscuring uppermost abdomen and lung bases. Coronal reformatted images were obtained and reviewed. All CT scans are performed using dose optimization technique as appropriate and may include automated exposure control or mA/KV adjustment according to patient size. FINDINGS: Linear atelectasis is present in the left lung base. Cholecystectomy clips. Imaged portions of the liver and spleen show no suspicious findings on non-contrast imaging. The panc reas and adrenal glands are normal. No pathologic lymphadenopathy in the abdomen or pelvis. Atrophic [place] kidneys. No hydronephrosis. No bowel obstruction, free air, free fluid or abscess. Normal appendix noted. No significant bony abnormality. IMPRESSION: Atrophic [place] kidneys without hydronephrosis.
--- NOTE | 2022-10-30 21:54 | PN ---
Date of Progress Note: 10/30/2022 Chief Complaint: End-stage renal disease, hyponatremia, fluid overload, respiratory failure, acute m etabolic encephalopathy. Subjective: Patient came to the hospital because of generalized weakness, hypoxemic respiratory fail ure. He remains confused. He had workup done by primary team for possible PE. CTA was negative for PE. After contrast exposure, the patient received dialysis. Mentation somewhat improved after dial ysis. Review of Systems: Denies complaints. Physical Examination: Lungs: Clear to auscultation bilaterally. Heart: S1, S2. Abdomen: Soft, benign. Extremities: Slight edema. Impression And Plan: 1.End-stage renal disease, fluid overload, congestive heart failure with diastolic dysfunction secon jayden to fluid overload and possible sepsis. Patient is on Zosyn. Continue empirical antibiotics and monitor vancomycin level. 2.Mentation improved somewhat after first dialysis. Next dialysis is scheduled for tomorrow. 3.History of upper extremity deep venous thrombosis. 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 4.Possible aspiration. Continue Zosyn and continue vancomycin for MRSA coverage. Blood cultures we re obtained and pending. 5.Hypertension. Blood pressure controlled. Adjust medication as needed. 6.Anemia in chronic kidney disease. Monitor hemoglobin level. EB/MODL Voice ID: [id number] Report ID: [id number]
[2022-10-31] MEDS: HEPARIN 5000 UNIT/ML 1 ML VIAL SQ SCH ×3 (00:50→17:15)
[2022-10-31 05:51] LABS: Absolute Lymphocytes (CBC) 1.1 K/uL (0.7-4.9); Hematocrit 30.2 % (39.6-49.0); Lymphocytes % 18.4 % (15.3-44.8); MCV 87.5 fL (80-100); MPV 7.2 fL (7.6-11.3); RBC Red Blood Cell Count 3.45 M/uL (4.33-5.43)
[2022-10-31 06:04] LABS: Potassium 4.4 mmol/L (3.5-5.1)
--- NOTE | 2022-10-31 09:22 | P.CNS ---
Primary Care Provider: nila Chief Complaint: AMS, missed HD History of Present Illness: 61-year-old gentleman with a history of end-stage renal disease on hemodialysis MWF, CHF, hypertension, diabetes who presents to the emergency department with a complaint of AMS, fever and missed dialysis x2. Patient was evaluated at the bedside, patient remained confused and disoriented. Unable to obtain review of system and history. Per ER, the patient presented with confusion, decreased responsiveness and disorientation. It was reported by EMS that patient missed dialysis twice. Unsure of why patient missed dialysis. In the ER, patient had fever of 101.2. Work-up in the emergency department revealed hyperkalemia with a potassium of 5.7, sodium 1129, creatinine of 11.1. BNP 10, 334 with chest x-ray negative findings. Patient will admitted under the care of Dr. Olguin. Nephrology consulted for further recommendations. ID has been consulted for unknown source of fever Allergies No Known Allergies Allergy (Verified 01/01/21 21:09) Home Medications: Amlodipine Besylate/Benazepril [Amlodipine-Benazepril 10-20 mg] 1 tab PO TID 11/27/20 Codeine/APAP [Tylenol #3*] 60 mg PO TID 04/08/22 Fish Oil/Borage/Flax/Om3,6,9 1 [[place] 3-6-9 1,200 mg Softgel] 1 tab PO DAILY 04/08/22 Folic Acid/Vit B Complex and C [Fauzia-Conor Tablet] 1 tab PO DAILY 04/08/22 Heparin [Heparin 1,000 units/mL *] 4,000 unit IV EVERY HD vial 04/08/22 Sucroferric Oxyhydroxide [Velphoro] 500 mg PO AC 04/08/22 Carboxymethylcellulose Sodium [Thera Tears] 1 each OP QID 60 Days #1 droperette 04/25/22 Hydrocodone 5/APAP 325 [[place] 5/325*] 1 tab PO Q6H PRN #12 tab 04/25/22 Warfarin Sodium [Coumadin*] 7.5 mg PO DAILY 5 PM #30 tab 04/25/22 carvediloL [Coreg*] 3.125 mg PO BID 6AM 6PM #60 tab 04/25/22 - Past Medical/Surgical History Diabetic: Yes -: End-stage renal disease on hemodialysis -: Hypertension -: HTN -: DM -: Peritoneal dialysis port -: shoulder surgery Psychosocial/ Personal History: Patient with 5 children. - Family History Father Medical History: Heart disease - Social History Smoking Status: Unknown if ever smoked Alcohol use: No CD- Drugs: No Caffeine use: No Review of Systems is unable to be obtained (patient is lethargy, confused and disoriented.) Physical Examination Temp Pulse Resp BP Pulse Ox 97.6 F 75 16 179/92 H 96 10/31/22 08:00 10/31/22 08:00 10/31/22 08:00 10/31/22 08:00 10/31/22 08:00 General: Confused Respiratory: Clear to auscultation bilaterally Cardiovascular: Normal S1 S2 Gastrointestinal: Normal bowel sounds Musculoskeletal: No swelling, No tenderness Integumentary: Other (stasis dermatitis b/l) Neurological: Other (confused ) Urinary: Dialysis catheter Heparin Sodium (Porcine) (Heparin 5000 Unit/Ml 1 Ml Vial) 5,000 unit SQ Q8HR [facility] Last Admin: 10/31/22 00:50 Dose: 5,000 unit Heparin Sodium (Porcine) (Heparin 1,000 Unit/Ml Vial) 4,000 unit IV EVERY HD PRN PRN Reason: Prevent Lines Clotting Last Admin: 10/29/22 19:15 Dose: 4,000 unit Piperacillin Sod/Tazobactam (Sod 3.375 gm/ Sodium Chloride) 100 mls @ 25 mls/hr IV Q12HR [facility]PA; Protocol Last Admin: 10/30/22 22:54 Dose: 100 mls Ondansetron HCl (Ondansetron 4 Mg/2 Ml Vial) 4 mg IV Q6HP PRN PRN Reason: NAUSEA / VOMITING Sodium Chloride (Flush Normal Saline 10 Ml) 10 ml IV BID [facility] Last Admin: 10/30/22 22:54 Dose: 10 ml Microbiology 10/29/22 14:17 Blood - Blood Aerobic Blood Culture - Preliminary 10/29/22 14:17 Blood - Blood Blood Culture Gram Stain - Preliminary 10/29/22 14:17 Blood - Blood Anaerobic Blood Culture - Preliminary No growth in 24 hours. 10/29/22 14:17 Blood - Blood Gram Stain - Preliminary 10/29/22 12:35 Blood - Blood Aerobic Blood Culture - Preliminary No growth in 24 hours. 10/29/22 12:35 Blood - Blood Anaerobic Blood Culture - Preliminary 10/29/22 12:35 Blood - Blood Gram Stain - Preliminary Imagings Data: RAD - Chest Single View - 10/29/2022: IMPRESSION: No acute cardiopulmonary disease CT - Chest For Pe Angio - 10/29/2022" IMPRESSION: Limited evaluation for pulmonary embolism due to streak artifact from the patient's arm and motion. No central pulmonary embolus identified. The segmental and subsegmental pulmonary arteries cannot be adequately evaluated due to motion. Ascending thoracic aortic aneurysm. Aortic valve calcifications also noted. Suggest echocardiography for further evaluation which need not be emergent CT - Stone Protocol - 10/30/2022: IMPRESSION: Atrophic [place] kidneys without hydronephrosis CT - Head Brain Wo Cont - 10/30/2022 IMPRESSION: No acute intracranial abnormality. - Problems (1) Fever Current Visit: No Status: Acute Plan: Cultures: 10/29 BC: Negative 10/31 BC: Pending Antibiotics: IV Zosyn (10/29 -> ) Recommendations: Continue IV antibiotics, Zosyn ID will recommend drug of choice when culture is available Conclusions/Impression: Acute metabolic encephalopathyl secondary to uremia Fever of unknown origin DM Stasis dermatitis ESRD on HD Hypertension Hyperkalemia Chronic CHF Case has been discussed with Dr. Jules N Thank you Dr. Olguin for consult
[2022-10-31] MEDS ORDERED: hydrOXYzine HCL 25 MG TAB PO ONE (10:00)
[2022-10-31] MEDS: PIPER TAZO 3.375 GM in NA CHLORIDE 0.9% 100 ML IV SCH ×2 (10:04→21:59)
--- NOTE | 2022-10-31 16:56 | EKG ---
Test Date: 2022-10-29 Test Time: 12:56:22 Access Lead: RELL MEASUREMENT RESULTS: Intervals: Rate: 92 NC: 174 QRSD: 104 QT: 364 QTc: 450 [place]: P: 33 NC: 174 QRS: 47 T: 38 INTERPRETIVE STATEMENTS: Normal sinus rhythm Normal ECG Compared to ECG 04/21/2022 17:18:04 No significant changes Electronically Signed On 10-31-22 16:54:34 OPTOELECTRONIC TECHNICIAN by Robby Cobb
[2022-10-31] MEDS ORDERED: PIPERACIL/TAZO 3.375 GM VIAL IV ONE (20:09)
[2022-10-31] MEDS ORDERED: NA CHLORIDE 0.9% 100 ML IV ONE ×2 (21:19→21:48)
--- NOTE | 2022-10-31 21:52 | P.PN ---
Date of Service: 10/31/22 Subjective: more alert/oriented x2 no acute events overnight tolerated HD yesterday, scheduled for today ROS: 10 point ROS as noted above, otherwise negative Physical exam GEN: Alert, orientedx2, NAD HEENT: Normal conjunctiva, sclera anicteric CV: Regular rate and rhythm, 1+ edema Pulm: mild labored respirations on 1L NC ABD: Soft, nontender, nondistended Neuro: Normal speech, confused, moves all extremities Problem List Acute metabolic encephalopathy secondary to uremia Fever of unknown origin ESRD on HD Hypertension Hyperkalemia CHF, chronic encephalopathy multifactorial, most likely due to uremia, possibly impacted by sepsis as well Blood cultures obtained, continue empiric Zosyn - cover for pneumonia blood cultures: gram positive cocci ID consulted Vanc, zosyn repeta cultures Mentation improved after 1 round of dialysis, but does not appear to be back to baseline yet CTA negative for PE Left upper extremity Doppler noted left IJ thrombus, previously seen Possible aspiration given his encephalopathy, speech therapy consulted, continue Zosyn as noted above Confirm home medications, restart as appropriate Fluid restriction VTE: Heparin SQ Code: Full Dispo: Home, ~2 days
--- NOTE | 2022-10-31 23:13 | PN ---
Date of Progress Note: 10/31/2022 Chief Complaint: End-stage renal disease, dilutional hyponatremia, fluid overload, respiratory failu re, and acute metabolic encephalopathy. Subjective: The patient came to the hospital because of generalized weakness and he was found to hav e hypoxemic respiratory failure. He remains confused and he had workup to rule out possible PE. The CTA was negative for PE. After contrast exposure, the patient received dialysis for metabolic clear ance to control electrolytes. He is undergoing dialysis to obtain negative fluid balance and obtain metabolic clearance. The patient is tolerating dialysis. Physical Examination: Lungs: Clear to auscultation bilaterally. Heart: S1, S2. Abdomen: Soft Extremities: Slight edema. Impression And Plan: 1.End-stage renal disease, fluid overload, congestive heart failure with diastolic dysfunction secon jayden to fluid overload and the patient had possible sepsis. The patient is on Zosyn. Continue empir ical antibiotics. Monitor vancomycin level. The patient has underlying chronic diastolic congestive heart failure. He developed congestive heart failure exacerbation in setting of fluid overload. Th e patient has hypoxemic respiratory failure. Continue O2 and titrate O2 as needed. 2.Mentation, improved. The patient may need a followup with Neurology. 3.History of upper extremity deep vein thrombosis. Doppler showed left internal jugular vein thromb us, which is chronic. 4.Possible aspiration. Continue with Zosyn and continue vancomycin for methicillin-resistant Staphy lococcus aureus coverage. Culture obtained and pending. 5.Hypertension. Blood pressure controlled. Adjust medication as needed. 6.Anemia in chronic kidney disease. Monitor hemoglobin level. 7.Renal osteodystrophy. Monitor phosphorus level and adjust binders as needed. EB/MODL Voice ID: [id number] Report ID: [id number]
[2022-10-31] MEDS ORDERED: NA CHLORIDE 0.9% 250 ML ONE (23:35)
[2022-10-31] MEDS ORDERED: VANCOMYCIN 1 GM/VIAL ONE (23:36)
[2022-11-01] MEDS: VANCOMYCIN 1 GM in NA CHLORIDE 0.9% 250 ML IVPB SCH ×2 (00:22→19:29)
[2022-11-01] MEDS: lisinopriL 20 MG TAB PO SCH ×2 (00:47→09:10)
[2022-11-01] MEDS: carvediloL 6.25 MG TAB PO SCH ×2 (00:48→09:10)
[2022-11-01] MEDS: HYDRALAZINE HCL 25 MG TABLET PO SCH ×4 (00:48→21:55)
[2022-11-01] MEDS: HEPARIN 5000 UNIT/ML 1 ML VIAL SQ SCH ×3 (01:02→16:54)
[2022-11-01 03:47] LABS: Hematocrit 30.4 % (39.6-49.0); Lymphocytes % 16.3 % (15.3-44.8); MCV 86.8 fL (80-100); MPV 7.5 fL (7.6-11.3); RBC Red Blood Cell Count 3.51 M/uL (4.33-5.43)
[2022-11-01 04:12] LABS: Albumin 3.3 g/dL (3.4-5.0); Bilirubin Total 0.4 mg/dL (0.2-1.0); Magnesium 2.4 mg/dL (1.6-2.4); Phosphorus 5.6 mg/dL (2.5-4.9); Potassium 3.6 mmol/L (3.5-5.1); Protein, Total 6.7 g/dL (6.4-8.2)
[2022-11-01] MEDS ORDERED: PIPERACIL/TAZO 3.375 GM VIAL IV ONE (08:28)
[2022-11-01] MEDS ORDERED: NA CHLORIDE 0.9% 100 ML ONE (09:00)
[2022-11-01] MEDS: PIPER TAZO 3.375 GM in NA CHLORIDE 0.9% 100 ML IV SCH ×2 (09:12→21:54)
--- NOTE | 2022-11-01 10:41 | P.PN ---
Subjective Date of Service: 11/01/22 Primary Care Provider: nila Chief Complaint: AMS, missed HD patient lying in bed eating lunch in good spirit. He is more alert than yesterday. No major event up examination Physical Examination - Vital Signs Temperature: 97.9 F Blood Pressure: 163/90 Pulse: 89 Respirations: 17 Pulse Ox (%): 97 - Physical Exam General: Alert, In no apparent distress, Oriented x3 Respiratory: Clear to auscultation bilaterally Cardiovascular: No edema, Normal S1 S2 Gastrointestinal: Normal bowel sounds Musculoskeletal: No swelling, No tenderness Integumentary: No rashes, No breakdown Neurological: Normal speech, Normal tone, Normal affect Urinary: Dialysis catheter - Studies Carvedilol (Carvedilol 6.25 Mg Tab) 6.25 mg PO BID [facility] Last Admin: 11/01/22 09:10 Dose: 6.25 mg Heparin Sodium (Porcine) (Heparin 5000 Unit/Ml 1 Ml Vial) 5,000 unit SQ Q8HR [facility] Last Admin: 11/01/22 09:11 Dose: 5,000 unit Heparin Sodium (Porcine) (Heparin 1,000 Unit/Ml Vial) 4,000 unit IV EVERY HD PRN PRN Reason: Prevent Lines Clotting Last Admin: 10/31/22 10:21 Dose: 4,000 unit Hydralazine HCl (Hydralazine Hcl 25 Mg Tablet) 25 mg PO TID [facility] Last Admin: 11/01/22 09:10 Dose: 25 mg Piperacillin Sod/Tazobactam (Sod 3.375 gm/ Sodium Chloride) 100 mls @ 25 mls/hr IV Q12HR [facility]; Protocol Last Admin: 11/01/22 09:12 Dose: 100 mls Vancomycin HCl 1 gm/ Sodium (Chloride) 250 mls @ 250 mls/hr IVPB AFTER EACH DIALYSIS [facility] Last Admin: 11/01/22 00:22 Dose: 250 mls Lisinopril (Lisinopril 20 Mg Tab) 40 mg PO DAILY [facility] Last Admin: 11/01/22 09:10 Dose: 40 mg Ondansetron HCl (Ondansetron 4 Mg/2 Ml Vial) 4 mg IV Q6HP PRN PRN Reason: NAUSEA / VOMITING Sodium Chloride (Flush Normal Saline 10 Ml) 10 ml IV BID [facility] Last Admin: 11/01/22 09:00 Dose: 10 ml Microbiology Data (last 24 hrs): Microbiology 10/31/22 08:07 Blood - Blood Aerobic Blood Culture - Preliminary No growth in 24 hours. 10/31/22 08:07 Blood - Blood Anaerobic Blood Culture - Preliminary No growth in 24 hours. 10/31/22 08:00 Blood - Blood Aerobic Blood Culture - Preliminary No growth in 24 hours. 10/31/22 08:00 Blood - Blood Anaerobic Blood Culture - Preliminary No growth in 24 hours. 10/29/22 14:17 Blood - Blood Aerobic Blood Culture - Preliminary 10/29/22 14:17 Blood - Blood Blood Culture Gram Stain - Preliminary 10/29/22 14:17 Blood - Blood Anaerobic Blood Culture - Preliminary No growth in 24 hours. 10/29/22 14:17 Blood - Blood Gram Stain - Preliminary 10/29/22 12:35 Blood - Blood Aerobic Blood Culture - Preliminary 10/29/22 12:35 Blood - Blood Anaerobic Blood Culture - Preliminary 10/29/22 12:35 Blood - Blood Gram Stain - Preliminary Assessment And Plan - Current Problems (Diagnosis) (1) Fever Current Visit: No Status: Acute Plan: Cultures: 10/29 BC: Negative 10/31 BC: Negative Antibiotics: IV Zosyn (10/29 -> ) Recommendations: Continue IV antibiotics, Zosyn (ESRD), Vancomycin on HD day - Plan Acute metabolic encephalopathyl secondary to uremia Fever of unknown origin DM Stasis dermatitis ESRD on HD Hypertension Hyperkalemia Chronic CHF Case has been discussed with Dr. Jules, N
--- NOTE | 2022-11-01 14:18 | PN ---
Date of Progress Note: 11/01/2022 Subjective: The patient was admitted with over volume. The patient is still having some shortness o f breath. The patient had also altered mental status. The patient had CT with angio upon admission. At that time, PE was ruled out. Physical Examination: Vital Signs: When I saw the patient; blood pressure 163/90, pulse of 89, afebrile. Chest: Crackles bilateral. Heart: S1, S2. Systolic murmur. Abdomen: Soft, nontender. Extremity: Trace edema. Neurologic: Alert. No focality. Laboratory Data: Hemoglobin 10.4. Sodium 136, potassium 3.6, bicarb 27, BUN 42, creatinine 8.4, sony cium 8.8, phosphorus 5.6, albumin 3.3, corrected calcium is 9.5. Current Medications: Include; 1.Hydroxyzine. 2.Lisinopril 40. 3.Hydralazine 25 t.i.d. 4.Carvedilol. Assessment And Plan: 1.End-stage renal disease, over volume. I am going to go ahead and do another session of dialysis t jose just sequential for 2 hours to establish better volume control for the patient. Then, we will d o another session tomorrow as regular dialysis and we will follow up the patient. 2.Hypertension. We will keep utilizing the blood pressure for more ultrafiltration. Continue curre nt treatment. We will follow up blood pressure after sequential today. 3.Hypokalemia. We do not need to supplement, will be corrected with dialysis tomorrow. 4.Secondary hyperparathyroidism. Phosphorus continued to trend down. I am going to continue Renvela for the patient. 5.Congestive heart failure with congestive heart failure exacerbation. As above, daily dialysis. 6.Altered mental status as by primary. MA/MODL Voice ID: [id number] Report ID: [id number]
[2022-11-01] MEDS: SEVELAMER CARBONATE 800 MG TABLET PO SCH (16:54)
[2022-11-01] MEDS ORDERED: VANCOMYCIN 1 GM in NA CHLORIDE 0.9% 250 ML IVPB SCH (17:00)
[2022-11-01] MEDS ORDERED: HYDROCODONE/APAP 5/325 MG TAB PO PRN (17:25)
--- NOTE | 2022-11-01 17:27 | P.PN ---
Subjective Date of Service: 11/01/22 Primary Care Provider: nila Chief Complaint: AMS, missed HD Patient has no new complaint. He was seen ambulating with no difficulty. Currently alert and oriented. Physical Examination - Vital Signs Temperature: 97.9 F Blood Pressure: 163/90 Pulse: 89 Respirations: 17 Pulse Ox (%): 97 Assessment And Plan - Plan Physical exam GEN: Alert, orientedx3, alert, NAD CV: Regular rate and rhythm, 1+ edema Pulm: mild labored respirations on 1L NC ABD: Soft, nontender, nondistended Neuro: Normal speech, confused, moves all extremities Problem List Acute metabolic encephalopathy secondary to uremia Fever of unknown origin ESRD on HD Hypertension Hyperkalemia CHF, chronic Encephalopathy multifactorial, most likely due to uremia, possibly impacted by sepsis as well Blood cultures: Coagulase-negative staph. Patient seen by infectious disease Continue IV Zosyn and vancomycin Repeat blood cultures: No growth to date. Currently at baseline mental status. CTA negative for PE. No pneumonia on CTA thorax. Left upper extremity Doppler noted left IJ thrombus, previously seen. Resume Coumadin. Resume antihypertensives Hemodialysis per nephrology. VTE: Coumadin. Code: Full Dispo: Home.
[2022-11-01] MEDS: AMLODIPINE 10 MG TAB PO SCH (17:43)
[2022-11-01] MEDS: carvediloL 3.125 MG TAB PO SCH (17:45)
[2022-11-01] MEDS ORDERED: ZOLPIDEM TARTRATE 10 MG TABLET PO PRN (23:01)
[2022-11-02] MEDS: HEPARIN 5000 UNIT/ML 1 ML VIAL SQ SCH ×2 (00:28→09:09)
[2022-11-02 04:14] LABS: Protime INR 0.96
[2022-11-02 04:19] VITALS: TEMP 97.9
[2022-11-02 04:20] LABS: Absolute Lymphocytes (CBC) 1.1 K/uL (0.7-4.9); Hematocrit 33.5 % (39.6-49.0); Lymphocytes % 17.5 % (15.3-44.8); MCV 86.5 fL (80-100); MPV 7.4 fL (7.6-11.3); RBC Red Blood Cell Count 3.88 M/uL (4.33-5.43)
[2022-11-02 04:52] LABS: Potassium 3.9 mmol/L (3.5-5.1)
[2022-11-02] MEDS: carvediloL 3.125 MG TAB PO SCH (06:41)
[2022-11-02 06:43] VITALS: BP 154/86
--- NOTE | 2022-11-02 08:33 | P.PN ---
Subjective Date of Service: 11/02/22 Primary Care Provider: nila Chief Complaint: AMS, missed HD Subjective: Improving patient siting in chair alert and in good spirit with at the bedside. No major event up examination Physical Examination - Vital Signs Temperature: 97.9 F Blood Pressure: 154/86 Pulse: 78 Respirations: 17 Pulse Ox (%): 98 - Physical Exam General: Alert, In no apparent distress, Oriented x3 Respiratory: Clear to auscultation bilaterally Cardiovascular: No edema, Normal S1 S2 Gastrointestinal: Normal bowel sounds Musculoskeletal: No swelling, No tenderness Integumentary: No rashes, No breakdown Neurological: Normal speech, Normal tone, Normal affect - Studies Hydrocodone Bitart/Acetaminophen (Hydrocodone/Apap 5/325 Mg Tab) 1 tab PO Q6H PRN PRN Reason: Pain scale 5-7 (Moderate) Amlodipine Besylate (Amlodipine 10 Mg Tab) 10 mg PO DAILY [facility] Last Admin: 11/01/22 17:43 Dose: 10 mg Carvedilol (Carvedilol 3.125 Mg Tab) 3.125 mg PO BID 6AM 6PM [facility] Last Admin: 11/02/22 06:41 Dose: 3.125 mg Heparin Sodium (Porcine) (Heparin 5000 Unit/Ml 1 Ml Vial) 5,000 unit SQ Q8HR [facility] Last Admin: 11/02/22 00:28 Dose: 5,000 unit Heparin Sodium (Porcine) (Heparin 1,000 Unit/Ml Vial) 4,000 unit IV EVERY HD PRN PRN Reason: Prevent Lines Clotting Last Admin: 10/31/22 10:21 Dose: 4,000 unit Hydralazine HCl (Hydralazine Hcl 25 Mg Tablet) 25 mg PO TID [facility] Last Admin: 11/01/22 21:55 Dose: 25 mg Piperacillin Sod/Tazobactam (Sod 3.375 gm/ Sodium Chloride) 100 mls @ 25 mls/hr IV Q12HR [facility]; Protocol Last Admin: 11/01/22 21:54 Dose: 100 mls Vancomycin HCl 1 gm/ Sodium (Chloride) 250 mls @ 250 mls/hr IVPB AFTER EACH D IALYSIS [facility] Last Admin: 11/01/22 19:29 Dose: 250 mls Lisinopril (Lisinopril 20 Mg Tab) 40 mg PO DAILY [facility] Last Admin: 11/01/22 09:10 Dose: 40 mg Ondansetron HCl (Ondansetron 4 Mg/2 Ml Vial) 4 mg IV Q6HP PRN PRN Reason: NAUSEA / VOMITING Sevelamer Carbonate (Sevelamer Carbonate 800 Mg Tablet) 800 mg PO TIDWM [facility] Last Admin: 11/01/22 16:54 Dose: 800 mg Sodium Chloride (Flush Normal Saline 10 Ml) 10 ml IV BID [facility] Last Admin: 11/01/22 21:55 Dose: 10 ml Warfarin Sodium (Warfarin Sodium 7.5 Mg Tab) 7.5 mg PO DAILY 5 PM [facility] Zolpidem Tartrate (Zolpidem Tartrate 10 Mg Tablet) 10 mg PO BEDTIME PRN PRN PRN Reason: INSOMNIA Last Admin: 11/01/22 23:13 Dose: 10 mg Microbiology Data (last 24 hrs): Microbiology 10/31/22 08:07 Blood - Blood Aerobic Blood Culture - Preliminary No growth in 24 hours. 10/31/22 08:07 Blood - Blood Anaerobic Blood Culture - Preliminary No growth in 24 hours. 10/31/22 08:00 Blood - Blood Aerobic Blood Culture - Preliminary No growth in 24 hours. 10/31/22 08:00 Blood - Blood Anaerobic Blood Culture - Preliminary No growth in 24 hours. 10/29/22 14:17 Blood - Blood Aerobic Blood Culture - Preliminary 10/29/22 14:17 Blood - Blood Blood Culture Gram Stain - Preliminary 10/29/22 14:17 Blood - Blood Anaerobic Blood Culture - Preliminary No growth in 24 hours. 10/29/22 14:17 Blood - Blood Gram Stain - Preliminary 10/29/22 12:35 Blood - Blood Aerobic Blood Culture - Preliminary 10/29/22 12:35 Blood - Blood Anaerobic Blood Culture - Preliminary 10/29/22 12:35 Blood - Blood Gram Stain - Preliminary Assessment And Plan - Current Problems (Diagnosis) (1) Fever Current Visit: No Status: Acute Plan: Cultures: 10/29 BC: Negative 10/31 BC: Negative Antibiotics: IV Zosyn (10/29 ->11/02) Recommendations: Stop Zosyn Continue IV Vancomycin for total of 2 weeks - Plan Acute metabolic encephalopathyl secondary to uremia Fever of unknown origin DM Stasis dermatitis ESRD on HD Hypertension Hyperkalemia Chronic CHF Case has been discussed with Dr. Jules, N
[2022-11-02] MEDS: lisinopriL 20 MG TAB PO SCH (09:08)
[2022-11-02] MEDS: SEVELAMER CARBONATE 800 MG TABLET PO SCH ×2 (09:08→11:33)
[2022-11-02] MEDS: AMLODIPINE 10 MG TAB PO SCH (09:08)
[2022-11-02] MEDS: PIPER TAZO 3.375 GM in NA CHLORIDE 0.9% 100 ML IV SCH (09:09)
[2022-11-02] MEDS: HYDRALAZINE HCL 25 MG TABLET PO SCH ×2 (09:09→13:24)
[2022-11-02 11:17] VITALS: O2SAT 96
--- NOTE | 2022-11-02 12:20 | PN ---
Date of Progress Note: 11/02/2022 Subjective: The patient was admitted with over volume, respiratory distress. The patient being dial yzed on a daily basis, tolerated the dialysis, yesterday removed 2.5 L. The patient is scheduled for dialysis today. Physical Examination: Vital Signs: Blood pressure 154/86, pulse of 78, afebrile. Chest: Faint rales bilateral bases. Heart: S1, S2. Regular. Abdomen: Soft, nontender. Extremities: No edema. Neurologic: Alert. No focality. Laboratory Data: Hemoglobin 11.4. Sodium 134, potassium 3.9, bicarb 22, BUN 51, creatinine 10.6, ca lcium 9.7. Current Medications: The patient on include; 1.Vancomycin. 2.Coumadin. 3.Carvedilol 3.125. 4.Hydralazine 25 t.i.d. 5.Lisinopril. 6.Renvela 800 t.i.d. Assessment And Plan: 1.End-stage renal disease with over volume. We will continue dialysis today and we will challenge t he patient. We will follow up after dialysis. The patient cleared from the Renal standpoint for dis charge planning. 2.Over volume. We will challenge the patient again today and we will follow up. 3.Hypertension. We will utilize blood pressure for more ultrafiltration. Currently being controlle d. 4.Congestive heart failure with exacerbation. As above, the patient is going to be challenged. 5.Anemia of chronic kidney disease. HASEEB to be held. 6.Atrial fibrillation as by primary. EDGARDO/BETTINA Voice ID: [id number] Report ID: [id number]
--- NOTE | 2022-11-02 13:29 | P.DS ---
Admission Date: 10/31/22 Discharge Date: 11/02/22 Primary Care Provider: nila Disposition: ROUTINE DISCHARGE Discharge Condition: FAIR Reason for Admission: AMS, missed HD Brief History of Present Illness: 61-year-old gentleman with a history of end-stage renal disease on hemodialysis MWF, CHF, hypertension, diabetes who presents to the emergency department with a complaint of AMS, fever and missed dialysis x2. Patient was evaluated at the bedside, patient remained confused and disoriented. Unable to obtain review of system and history. Per ER, the patient presented with confusion, decreased responsiveness and disorientation. It was reported by EMS that patient missed dialysis twice. Unsure of why patient missed dialysis. In the ER, patient had fever of 101.2. Work-up in the emergency department revealed hyperkalemia with a potassium of 5.7, sodium 1129, creatinine of 11.1. BNP 10, 334 with chest x-ray negative findings. Patient was admitted under for further management. Hospital Course: Diagnosis Acute metabolic encephalopathy secondary to uremia Fever of unknown origin ESRD on HD Hypertension Hyperkalemia CHF, chronic Patient admitted to the medical floor. Encephalopathy multifactorial, most likely due to uremia, possibly impacted by sepsis as well. Nephrology consulted, patient underwent dialysis daily. He was treated with IV antibiotics-vancomycin and Zosyn Blood cultures: Coagulase-negative staph. Repeat blood cultures yielded no growth Patient seen by infectious disease and general consensus was to treat the coagulase-negative staph bacteremia given report of fever and the fact that patient is on dialysis. 2 weeks of IV vancomycin with dialysis recommended Patient mental status improved back to baseline, he was ambulatory, alert and o riented and tolerated his meals CTA negative for PE. No pneumonia on CTA thorax. Left upper extremity Doppler noted left IJ thrombus which is chronic. He is on Coumadin which is resumed. Also resumed antihypertensives for BP control Patient has clinically improved and deemed stable for discharge. His medications including Coumadin resumed on discharge. Vital Signs/Physical Exam: Temp Pulse Resp BP Pulse Ox 97.9 F 78 17 154/86 H 98 11/02/22 11:46 11/02/22 11:46 11/02/22 11:46 11/02/22 11:46 11/02/22 11:46 General: Alert, In no apparent distress, Oriented x3, Obese HEENT: Mucous membr. moist/pink Neck: JVD not distended Respiratory: Clear to auscultation bilaterally, Normal air movement, Crackles/rales Cardiovascular: Regular rate/rhythm, Normal S1 S2 Gastrointestinal: Normal bowel sounds, Soft and benign, Non-distended, No tenderness Musculoskeletal: No swelling, No tenderness Integumentary: No rashes, No cyanosis Neurological: Normal strength at 5/5 x4 extr Laboratory Data at Discharge: WBC 6.30 K/uL (4.3-10.9) 11/02/22 03:52 Hgb 11.4 g/dL (13.6-17.9) L D 11/02/22 03:52 Hct 33.5 % (39.6-49.0) L 11/02/22 03:52 Plt Count 267 K/uL (152-406) 11/02/22 03:52 PT 10.6 SECONDS (9.5-12.5) 11/02/22 03:52 INR 0.96 11/02/22 03:52 APTT 35.1 SECONDS (24.3-36.9) 10/29/22 12:35 Sodium 134 mmol/L (136-145) L 11/02/22 03:52 Potassium 3.9 mmol/L (3.5-5.1) 11/02/22 03:52 BUN 51 mg/dL (7-18) H 11/02/22 03:52 Creatinine 10.60 mg/dL (0.70-1.30) H* 11/02/22 03:52 Glucose 109 mg/dL (74-106) H 11/02/22 03:52 Phosphorus 5.6 mg/dL (2.5-4.9) H 11/01/22 02:51 Magnesium 2.4 mg/dL (1.6-2.4) 11/01/22 02:51 Total Bilirubin 0.4 mg/dL (0.2-1.0) 11/01/22 02:51 AST 13 U/L (15-37) L 11/01/22 02:51 ALT 18 U/L (16-61) 11/01/22 02:51 Alkaline Phosphatase 92 U/L (45-117) 11/01/22 02:51 Triglycerides 239 mg/dL (<150) H 10/30/22 05:48 Cholesterol 182 mg/dL (<200) 10/30/22 05:48 HDL Cholesterol 53 mg/dL (40-60) 10/30/22 05:48 Cholesterol/HDL Ratio 3.43 10/30/22 05:48 Home Medications: Codeine/APAP [Tylenol #3*] 300 mg PO TID PRN 04/08/22 Folic Acid/Vit B Complex and C [Fauzia-Conor Tablet] 1 tab PO DAILY 04/08/22 Sucroferric Oxyhydroxide [Velphoro] 500 mg PO TIDWMHS 04/08/22 Amlodipine Besylate/Benazepril [Amlodipine-Benazepril 10-20 mg] 1 tab PO TID #30 tab 11/02/22 Bumetanide 1 tab PO DAILY 11/02/22 Hydralazine [Apresoline*] 25 mg PO TID #90 tab 11/02/22 Sevelamer Carbonate [Renvela*] 800 mg PO TIDWM #90 tab 11/02/22 Warfarin Sodium [Coumadin*] 7.5 mg PO DAILY 5 PM tab 11/02/22 Zolpidem Tartrate [Ambien*] 1 tab PO BEDTIME PRN 11/02/22 carvediloL [Coreg*] 3.125 mg PO BID 6AM 6PM #30 tab 11/02/22 New Medications: Amlodipine Besylate/Benazepril [Amlodipine-Benazepril 10-20 mg] 1 tab PO TID #30 tab Hydralazine [Apresoline*] 25 mg PO TID #90 tab carvediloL [Coreg*] 3.125 mg PO BID 6AM 6PM #30 tab Sevelamer Carbonate [Renvela*] 800 mg PO TIDWM #90 tab Diet: Renal Activity: Fall precautions Followup: Unknown,U [Primary Care Provider] - 1-2 Weeks Time spent managing pt's care (in minutes): 35
[2022-11-02] MEDS ORDERED: WARFARIN SODIUM 7.5 MG TAB PO SCH (17:00)
[2022-11-03] MEDS ORDERED: VANCOMYCIN 500 MG in NA CHLORIDE 0.9% 100 ML IV SCH (17:00)
== END 2022-11-02 15:15 | disposition home or self-care (01) | DRG 871 ==
LOC: ER 11:47 → ERHOLD 15:06 → 2ND 20:32 → OBSVTOIN 10-31 12:01
PROVIDERS: ADMIT Hospitalist; ATTEND Internal Medicine
PROC: 5A1D70Z Performance of Urinary Filtration, Intermittent, Less than 6 Hours Per Day (ICD-10-PCS; principal; 2022-10-31)
DX: A41.9 Sepsis, unspecified organism (principal); G93.41 Metabolic encephalopathy; N18.6 End stage renal disease; J96.91 Respiratory failure, unspecified with hypoxia; I13.2 Hypertensive heart and chronic kidney disease with heart failure and with stage 5 chronic kidney disease, or end stage renal disease; N25.81 Secondary hyperparathyroidism of renal origin; E87.1 Hypo-osmolality and hyponatremia; I50.32 Chronic diastolic (congestive) heart failure; E11.22 Type 2 diabetes mellitus with diabetic chronic kidney disease; D63.1 Anemia in chronic kidney disease; E87.6 Hypokalemia; E87.5 Hyperkalemia; I48.91 Unspecified atrial fibrillation; I87.2 Venous insufficiency (chronic) (peripheral); N25.0 Renal osteodystrophy; Z99.2 Dependence on renal dialysis; Z91.15 Patient's noncompliance with renal dialysis; Z79.01 Long term (current) use of anticoagulants; Z86.718 Personal history of other venous thrombosis and embolism; Z79.899 Other long term (current) drug therapy; Z20.822 Contact with and (suspected) exposure to COVID-19
CPT/HCPCS: 0240U; 36415; 70450; 71045; 71275; 74176; 76377; 80048; 80053; 80061; 80202; 82140; 82607; 82805; 82947; 83605; 83735; 83880; 84100; 84443; 85025; 85610; 85730; 87040; 87077; 87186; 87205; 90935; 93005; 93970; 93971; 99285; G0103; G0378; J1644; J2405; J2543; J3370; J7040; J7050; Q9967

== ENCOUNTER 2022-11-24 22:24 | Inpatient (IN) | payer OTHER ==
[2022-11-24 22:54] LABS: Absolute Lymphocytes (CBC) 0.7 K/uL (0.7-4.9); Hematocrit 31.2 % (39.6-49.0); Lymphocytes % 8.2 % (15.3-44.8); MCV 89.6 fL (80-100); MPV 7.2 fL (7.6-11.3); RBC Red Blood Cell Count 3.48 M/uL (4.33-5.43)
[2022-11-24 23:01] LABS: Protime INR 0.98
[2022-11-24 23:18] LABS: ALT/SGPT 14 U/L (16-61); AST/SGOT 18 U/L (15-37); Albumin 3.5 g/dL (3.4-5.0); Alkaline Phosphatase 143 U/L (45-117); BUN Blood Urea Nitrogen 67 mg/dL (7-18); Bicarbonate 22 mmol/L (21-32); Bilirubin Direct 0.1 mg/dL (0-0.2); Bilirubin Total 0.3 mg/dL (0.2-1.0); Glomerular Filtration Rate 5 ml/min (=/>90); Glucose Level 88 mg/dL (74-106); Potassium 5.4 mmol/L (3.5-5.1); Protein, Total 7.1 g/dL (6.4-8.2); Sodium Level 128 mmol/L (136-145)
--- OUTSIDE RECORDS SUMMARY | 2022-11-24 23:31 | XMS REPORT | Continuity of Care Document ---
:1960 Author Organization [facility] t Address [address] [place] [address] Care Team Providers Name Role Phone ARIE ANDREW Primary Care Physician Unavailable [id number] Attending Clinician Unavailable OMID SHARIF Attending Clinician Unavailable TEODORA MERRILL Attending Clinician Unavailable YESENIA SHRESTHA Attending Clinician Unavailable ADILIA OLSEN Attending Clinician Unavailable Adilia Olsen MD Attending Clinician Dionne Shaw MD Attending Clinician [phone] Rufina Hartley RN Attending Clinician Unavailable Theresa Lara Attending Clinician Unavailable Teodora Merrill MD Attending Clinician Arie Andrew Attending Clinician [facility] Attending Clinician Unavailable SHANNA TESFAYE Attending Clinician Unavailable Shanna Tesfaye II Attending Clinician Paulo Hong Attending Clinician JOHN YORK Attending Clinician Unavailable Cecy Arias Attending Clinician CECY ARIAS Attending Clinician UnavailMELIZA Ray Attending Clinician Unavailable Norma SAAB, Jair Clayton Attending Clinician Unavailable Quita Tanner Attending Clinician Heriberto CRUZ, Pam Attending Clinician Roxy CRUZ, Eric Ruiz Attending Clinician Tervor Rachel Attending Clinician TREVOR RACHEL Attending Clinician Unavailable Omid Sharif MD Attending Clinician James CRUZ, John Tavarez Attending Clinician Paulina Skinner Attending Clinician Doctor Unassigned, [place] Attending Clinician Unavailable ANGIE CLEANING Attending Clinician Unavailable Black CRUZ, Angie Schilling Attending Clinician Mina CRUZ, Anna Keita Attending Clinician [phone] Megha Choi Attending Clinician MEGHA CHOI Attending [...] Attending Clinician Osvaldo Hector Jr Attending Clinician [id number] Admitting Clinician Unavailable OMID SHARIF Admitting Clinician [...] Number Effective Date Expiration Date S quan [facility] [id number] MEDICARE PART A \\T\\ [id number] 2018 B 00:00:00 COMMERCIAL [id number] 2018 NON-CONTRACT 00:00:00 GENERIC HUMANA CHOICE [id number] 2021 00:00:00 Problems Condition Condition Condition Status [...] OVERLOAD 00:00: Rafael n Active 00 08/06/2020 [facility] DIALYSIS DIALYSIS Diagnosis Active 2019-102020-07-24 [facility] ISSUE ISSUE 08:37:00 l Active 00:00: Mar[place] 07/24/2020 [facility] PERITONITI PERITONIT Diagnosis Active 2020-07-09 Macho S, IS, 07-06 16:32:00 l DIABETES, DIABETES, 00:00: Herm dionne ESRD ON ESRD ON 00 DIALYSIS DIALYSIS Active 07/06/2020 [facility] ABD PAIN ABD PAIN Diagnosis Active 2020-07-06 Memoria Active 07-06 07:06:00 l 07/06/2020 00:00: Rafael n [facility] [address] [place] Dyspnea on Dyspnea on Disease Active U nivers exertion exertion 06-21 ity of 00:00: [place] 00 [facility] Dyspnea Dyspnea Disease Active Univers 06-21 ity of 00:00: [place] 00 [facility] WEAKNESS WEAKNESS Diagnosis Active 2020-08-04 [facility] AND AND 05-21 11:45:00 l SWELLING SWELLING 00:00: Rafael n Active 00 05/21/2020 [facility] Colon Colon Disease Active Overview: Univer s cancer cancer 05-13 Formattin ity of screening screening 00:00: [place] of this [place] 00 note Medical might be Branch different from the original. Added automatic ally from request for surgery [id number] ESRD (end ESRD (end Disease Active Uni vers stage stage 6-18 ity of renal renal 00:00: [place] disease) disease) 00 Medica l Branch GIB GIB Disease Active Univers (gastroint (gastroint 6-15 it y of estinal estinal 00:00: [place] bleeding) bleeding) 00 Medi sony Branch Gastrointe Gastrointe Disease Active Overview : Univers stinal stinal 6-15 Formattin ity of hemorrhage hemorrhage 00:00: g of this [place] with with 00 note Medical melena melena might be Branch different from the original. Added automatic ally from request for surgery [id number] NAUSEA/VOM NAUSEA/VO Diagnosis Active 2020-03-23 Memoria ITING MITING 03-23 01:05:00 l Active 00:00: Marlo 03/23/2020 [facility] Obesity Obesity Disease Active Univers (BMI (BMI 5-27 ity of 30-39.9) 30-39.9) 00:00: [place] 00 Medical Branch FEVER FEVER Diagnosis Active 2020-02-26 Mem oria Active 02-02 11:06:00 l 02/03/2020 00:00: Rafael cee [facility] 00 Marlodionne Blanton Disease Active Overview : Univers r polyp r polyp 2-06 Formattin ity o f 00:00: g of this [place] 00 note Medical might be Branch different from the original. Added automatic ally from request for surgery [id number] AMS, AMS, Diagnosis Active 2019-10-31 Mem oria HYPONATREM HYPONATREM 10-28 11:04:00 l IA IA Active 00:00: Marlo 10/28/2019 00 [facility] [place] NUMBNESS NUMBNESS Diagnosis Active 2019-10-28 Memoria Active 10-28 20:30:00 l 10/28/2019 00:00: Rafael cee [facility] 00 [place] AMS AMS Diagnosis Active 2018-102019-09-23 Mem oria Active 10-14 21:56:00 l 08/14/2019 10:52: Rafael cee [facility] 00 [place] PNA PNA Diagnosis Active 2019-04-05 Mem oria Active 04-05 20:15:00 l 04/05/2019 00:00: Rafael cee [facility] [address] [place] DIZZINES, DIZZINES, Diagnosis Active 2019-04-15 Memoria PNEUMONIA, [...] Diagnosis Active 2017-102018-07-21 Annie oriforrest REFERRAL REFERRAL 0- 21:30:00 l Active 00:00: Marlo 07/21/[address] DR[address] Diagnosis Active 2017-102018-07-20 Annie oriforrest REFFERAL REFFERAL 0-12 20:08:00 l Active 00:00: Marlo 07/20/2018 00 [facility] [place] RENAL/DO RENAL/DO Diagnosis Active 2018-07-31 Memoria NOT USE NOT USE 05-23 12:39:00 l FOR FOR 06:00: [place] CHARGES CHARGES 00 F/C NOTES F/C NOTES O O Active 05/23/2018 [facility] NEW NEW Diagnosis Active 2018-05-23 Mem oria EVALUATION EVALUATION 05-09 10:28:00 l Active 00:00: Marlo 05/09/2018 00 [facility] HYPERTENSI HYPERTENS Diagnosis Active 2018-04-16 Memewelina VE RONEN 04-14 13:14:00 l URGENCY, URGENCY, 08:00: Rafael cee CHEST PAIN CHEST PAIN 00 Active 04/14/2018 [facility] CHEST PAIN CHEST Diagnosis Active 2018-04-15 Memoria PAIN 04-14 01:42:00 l Active 08:00: Marlo 04/14/2018 00 [facility] ACUTE ACUTE Diagnosis Active 2018-03-19 Annie theodore DYSPNEA DYSPNEA 03-16 13:39:00 l Active 00:00: Marlo 03/16/2018 00 [facility] WEAKNESS WEAKNESS Diagnosis Active 2018-03-17 Memoria Active 03-16 05:41:00 l 03/16/2018 00:00: Rafael cee [facility] 00 [place] ESRD (end ESRD (end Disease Active Uni vers stage stage 4-28 ity of renal renal 00:00: [place] disease) disease) 00 Medica l on on Branch dialysis dialysis IN NEED OF IN NEED Diagnosis [facility] -16 18:51:00 l DIALYSIS 00:00: [place] Active 00 01/22/2018 [facility] [place] SOB SOB Diagnosis Active 2017-12-15 Mem oria Active 12-15 07:37:00 l 12/15/2017 00:00: Rafael cee [facility] 00 [place] ACUTE ACUTE Diagnosis Active 2017-12-15 [facility] oria RENAL RENAL 12-15 10:05:00 l FAILURE, FAILURE, 00:00: Rafael cee FLUID FLUID 00 OVERLOAD, OVERLOAD, CHF CHF Active 12/15/2017 [facility] DM DM Disease Active Univers (diabetes (diabetes ity of mellitus) mellitus) [facility] HTN HTN Disease Active Univers (hypertens (hypertens it y of ion) ion) [facility] DIZZINESS DIZZINESS Diagnosis Active 2019-04-15 Memoria AND AND 21:55:00 l GIDDINESS GIDDINESS Herm dionne Active [facility] DYSPNEA, DYSPNEA, Diagnosis Active 2018-03-19 Memoria UNSPECIFIE UNSPECIFIE 13:39:00 l D D Active [facility] ACUTE ACUTE Diagnosis Active 2017-12-15 Mem oria KIDNEY KIDNEY 10:05:00 l FAILURE, FAILURE, Rafael n UNSPECIFIE UNSPECIFIE D D Active [facility] HEART HEART Diagnosis Active 2017-12-15 Me moria FAILURE, FAILURE, 10:05:00 l UNSPECIFIE UNSPECIFIE He rmann D D Active [facility] ACUTE ACUTE Diagnosis Active 2018-12-14 Mem oria PULMONARY PULMONARY 09:50:00 l EDEMA EDEMA [place] Active [facility] End stage End stage Problem 2020-08-14 Memoria renal renal 23:33:32 l disease disease [place] 08/14/2020 [facility] Type 2 Type 2 Problem 2019-02-10 Kojo lynn diabetes diabetes 12:48:45 l mellitus mellitus Rafael n with with diabetic diabetic chronic chronic kidney kidney disease disease 02/10/2019 [facility] Hypertensi Hypertens Problem 2019-02-10 Memoria ve chronic ronen 12:48:45 l kidney chronic [place] disease kidney with stage disease 5 chronic with stage kidney 5 chronic disease or kidney end stage disease or renal end stage disease renal disease 02/10/2019 [facility] Dependence Dependenc Problem 2019-02-10 Memoria on renal e on renal 12:48:45 l dialysis dialysis Rafael n 02/10/2019 [facility] Anxiety Anxiety Problem 2019-02-06 Mi moria disorder, disorder, 14:42:13 l unspecifie unspecifie He rmann d d 02/06/2019 [facility] Sleep Sleep Problem 2019-02-10 Memor ia apnea, apnea, 12:48:45 l unspecifie unspecifie He rmann d d 02/10/2019 [facility] 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-06 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:42:13 l (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) Herm dionne 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 therapy 02/06/2019 [facility] Pericardia Pericardi Problem 2019-02-10 Memoria l effusion al 12:48:45 l (noninflam effusion Herm dionne matory) (noninflam matory) 02/10/2019 [facility] Nausea Nausea Problem 2019-02-06 Kojo lynn 02/06/2019 14:42:13 l [facility] [place] Other Other Problem 2019-02-06 Memor ia symptoms symptoms 14:42:13 l and signs and signs Herm dionne concerning concerning food and food and fluid fluid intake intake 02/06/2019 [facility] Pneumonia, Pneumonia Problem 2019-04-10 Memoria unspecifie , 22:02:39 l d organism unspecifie He rmann d organism 04/10/2019 [facility] Altered Altered Problem 2019-11-07 Me moria mental mental 23:47:53 l status, status, Mar[place] unspecifie unspecifie d d 11/07/2019 [facility] Acute Acute Problem 2019-02-10 Memor ia pulmonary pulmonary 12:48:45 l edema edema Marlo 02/10/2019 [facility] Acute Acute Problem 2019-02-10 Memor ia kidney kidney 12:48:45 l failure, failure, Rafael n unspecifie unspecifie d d 02/10/2019 [facility] Fluid Fluid Problem 2019-02-10 Memor ia overload, overload, 12:48:45 l unspecifie unspecifie He rmann d d 02/10/2019 [facility] Obesity, Obesity, Problem 2019-02-10 Memoria unspecifie unspecifie 12:48:45 l d d Mar[place] 02/10/2019 [facility] Body mass Body mass Problem 2019-02-10 Memoria index index 12:48:45 l (BMI) (BMI) [place] 33.0-33.9, 33.0-33.9, adult adult 02/10/2019 [facility] Chronic Chronic Problem 2019-02-10 Me moria obstructiv obstructiv 12:48:45 l e e [place] pulmonary pulmonary disease, disease, unspecifie unspecifie d d 02/10/2019 [facility] Dyspnea, Dyspnea, Problem 2018-03-23 Memoria unspecifie unspecifie 01:53:56 l d d [place] 03/23/2018 [facility] Single Single Problem 2020-08-10 Kojo lynn liveborn liveborn 09:04:08 l infant, , [place] delivered delivered vaginally vaginally 08/10/2020 [facility] Hypocalcem Hypocalce Problem 2018-03-28 Memoria ia jesenia 12:58:31 l 03/28/2018 Rafael n [facility] Other Other Problem 2018-03-28 Memor ia disorders disorders 12:58:31 l of of [place] phosphorus phosphorus metabolism metabolism 8 [facility] Hypo-osmol Hypo-osmo Problem 2018-03-28 Memoria ality and lality and 12:58:31 l hyponatrem hyponatrem He rmann ia ia 03/28/2018 [facility] Iron Iron Problem 2018-03-28 Memor ia deficiency deficiency 12:58:31 l anemia, anemia, [place] unspecifie unspecifie d d 03/28/2018 [facility] Secondary Secondary Problem 2018-03-28 Memoria hyperparat hyperparat 12:58:31 l hyroidism hyroidism Herm dionne of renal of renal origin origin 03/28/2018 [facility] Acute Acute Problem 2018-03-28 Memor ia diastolic diastolic 12:58:31 l (congestiv (congestiv He rmann e) heart e) heart failure failure 03/28/2018 [facility] Anemia in Anemia in Problem 2018-03-28 Memoria other other 12:58:31 l chronic chronic [place] diseases diseases classified classified elsewhere elsewhere 03/28/2018 [facility] Atheroscle Problem 2018-03-28 M emoria rosis of Atheroscle 12:58:31 l renal rosis of [place] artery renal artery 03/28/2018 [facility] Obstructiv Obstructi Problem 2018-03-28 Memoria e sleep ve sleep 12:58:31 l apnea apnea [place] (adult) (adult) (pediatric (pediatric ) ) 03/28/2018 [facility] Anxiety Anxiety Problem Resolve 2020-08-14 M emoria (finding) (finding) d 23:33:32 l Resolved [place] Problem 08/14/2020 [facility] Sleep Sleep Problem Resolve 2020-08-14 Mem oria apnea apnea d 23:33:32 l (finding) (finding) Herm dionne Resolved Problem 08/14/2020 [facility] Pericardia Pericardi Problem Active 2020-08-14 Memoria l effusion al 23:33:32 l (disorder) effusion Herm dionne (disorder) Active Problem 08/14/2020 [facility] Simple Simple Problem Active 2020-08-14 Kojo lynn obesity obesity 23:33:32 l (disorder) (disorder) He rmann Active Problem 08/14/2020 [facility] ALTERED ALTERED Diagnosis Active 2019-10-31 Memoria MENTAL MENTAL 11:04:00 l STATUS, STATUS, [place] UNSPECIFIE UNSPECIFIE D D Active [facility] PERITONITI PERITONIT Diagnosis Active 2020-07-09 Memoria S, IS, 16:32:00 l UNSPECIFIE UNSPECIFIE He rmann D D Active [facility] HYPO-OSMOL HYPO-OSMO Diagnosis Active 2019-10-31 Memoria ALITY AND LALITY AND 11:04:00 l HYPONATREM HYPONATREM He rmann IA IA Active [facility] TYPE 2 TYPE 2 Diagnosis Active 2020-07-09 Me moria DIABETES DIABETES 16:32:00 l MELLITUS MELLITUS Rafael n WITHOUT WITHOUT COMPLIC COMPLIC Active [facility] END STAGE END STAGE Diagnosis Active 2020-08-12 Memoria RENAL RENAL 08:39:00 l DISEASE DISEASE [place] Active [facility] FLUID FLUID Diagnosis Active 2020-08-12 Mem oria OVERLOAD, OVERLOAD, 08:39:00 l UNSPECIFIE UNSPECIFIE He rmann D D Active [facility] SINGLE SINGLE Diagnosis Active 2020-08-09 Me moria LIVEBORN LIVEBORN 07:58:00 l INFANT, INFANT, Mar[place] DELIVERED DELIVERED VAGINA VAGINA Active [facility] PNEUMONIA, PNEUMONIA Diagnosis Active 2019-04-15 Memoria UNSPECIFIE , 21:55:00 l D ORGANISM UNSPECIFIE He rmann D ORGANISM Active [facility] History of Past Illness Condition Condition Condition Status Onset Resolution Last Treating Co mments Source Name Details Category Date Date Treatment Clinician Date Localized Localized Problem 2019-102020-07-26 2020-07-26 Memoria edema edema 0-16 21:30:35 21:30:35 l 07/24/2020 17:00: Rafael n 0 [facility] Hypokalemi Hypokalem Problem 2019-102020-07-26 2020-07-26 Memoria a ia 0-16 21:30:35 21:30:35 l 07/24/2020 17:00: Rafael n 0 [facility] Type 2 Type 2 Problem 2020-07-17 2020-07-17 Memoria diabetes diabetes - 22:26:03 22:26:03 l mellitus mellitus 17:00: Rafael cee without without 00 complicati complicati ons ons 07/06/2020 0 [facility] Anemia, Anemia, Problem 2020-05-23 2020-05-23 Memoria unspecifie unspecifie 05-21 21:26:40 21:26:40 l d d 17:00: Marlo 05/21/2020 00 0 [facility] Constipati Constipat Problem 2020-05-23 2020-05-23 Memoria on, ion, 05-21 21:26:40 21:26:40 l unspecifie unspecifie 17:00: Jarad escalera d 00 05/21/2020 0 [facility] Pain in Pain in Problem 2020-02-05 2020-02-05 Memoria right hip right hip 02-02 21:56:20 21:56:20 l 02/03/2020 17:00: Rafael cee 00 0 [facility] Fever, Fever, Problem 2020-02-05 2020-02-05 Memoria unspecifie unspecifie 02-02 21:56:20 21:56:20 l d d 17:00: Marlo 02/03/202002/05/2020 [facility] Unspecifie Unspecifi Problem 2020-02-05 2020-02-05 Memewelina d fall, ed fall, 02-02 21:56:20 21:56:20 l initial initial 17:00: Marlo encounter encounter 00 02/03/2020 02/05/2020 [facility] Other Other Problem 2017-102019-02-10 2019-02-10 M emoria specified specified 12:48:45 12:48:45 l complicati complicati 04:09: Jarad rider on of on of vascular vascular prosthetic prosthetic devices, devices, implants implants and and grafts, grafts, initial initial encounter encounter 07/31/2018 02/10/2019 [facility] Hyperkalem Hyperkale Problem 2017-102019-02-06 2019-02-06 Macho ia jesenia 0-12 14:42:13 14:42:13 l 07/20/2018 05:00: Rafael cee 02/06/2019 00 [facility] Unspecifie Problem 2017-2019-02-06 2019-02-06 Memoria d Unspecifie 0-12 14:42:13 14:42:13 l complicati d 05:00: Rafael cee on of complicati 00 internal on of prosthetic internal device, prosthetic implant device, and graft, implant initial and graft, encounter initial encounter 07/20/2018 9 [facility] Hypertensi Hypertens Problem 2017-2018-03-28 2018-03-28 Memoria ve heart ronen heart 12-28 12:58:31 12:58:31 l disease disease 03:49: [place] with heart with heart 05 failure failure 12/28/2017 8 [facility] Chronic Chronic Problem 2018-01-25 2018-01-25 Memoria kidney kidney 01-22 04:46:18 04:46:18 l disease, disease, 05:00: Rafael cee unspecifie unspecifie 00 d d 01/22/2018 8 [facility] Allergies, Adverse Reactions, Alerts Allergy Allergy Status Severity Reaction(s) Onset Inactive Treating Comm ents Source Name Type Date Date Clinician NO KNOWN Drug Active Univers ALLERGIE Class ity of S [place] [facility] Social History Social Habit Start Date Stop Date Quantity Comments Source Tobacco use and 2020-03-23 2020-03-23 Smokeless tobacco Un iversity of exposure 00:00:00 00:00:00 non-user [place] [facility] History [facility] 2020-03-23 2020-03-23 5 University o f Financial 00:00:00 00:00:00 [place] [facility] History [facility] Food 2020-03-23 2020-03-23 1 Univers ity of Worry 00:00:00 00:00:00 [place] [facility] History [facility] Food 2020-03-23 2020-03-23 1 Univers ity of Scarcity 00:00:00 00:00:00 [place] [facility] History [facility] 2020-03-23 2020-03-23 2 University o f Transport Med 00:00:00 00:00:00 [place] Medic al Branch History [facility] 2020-03-23 2020-03-23 2 University o f Transport Non-Med 00:00:00 00:00:00 [place] M edical Branch Social History 2019-08-15 2019-08-15 [facility] devante 14:23:20 14:23:20 [birth year] Universit y of 00:00:00 00:00:00 [facility] Smoking Status Start Date Stop Date Source Never smoked tobacco [facility] Medications Ordered Filled Start Stop Current [...] 2 ity of mg tablet 10:42: (two) [place] 32 times Medical daily as Branch needed. fentaNYL 2019-10 No Route: IV, Mem oria (ANES) 10-12 Drug form: l 18:10: INJ, ONCE, Stop date: 08/12/20 12:10:00 GAS B[facility] lidocaine 2019-10 No Route: IV, Me moria (ANES) 10-12 Drug form: l 18:10: INJ, ONCE, Stop date: 08/12/20 12:10:00 [facility] propofol 2019-10 No Route: IV, Mem oria (ANES) 10-12 Drug form: l 18:10: INJ, ONCE, Stop date: 08/12/20 12:10:00 GAS BRA[facility] ondansetron 2019-10 No Route: IV, Memoria (ANES) 10-12 Drug form: l 18:10: INJ, ONCE, Stop date: 08/12/20 12:10:00 GAS BRA[facility]ER metoclopram 2019-10 No Route: IV, Memoria jeanna (ANES) 10-12 Drug form: l 18:10: INJ, ONCE, Stop date: 08/12/20 12:10:00 GAS BRAZER fentaNYL 2019-10 No Route: IV, Mem oria (ANES) 10-12 Drug form: l 18:10: INJ, ONCE, Stop date: 08/12/20 12:10:00 GAS BRAZER lidocaine 2019-10 No Route: IV, Me moria (ANES) 10-12 Drug form: l 18:10: INJ, ONCE, Stop date: 08/12/20 12:10:00 GAS BRA[facility]ER propofol 2019-10 No Route: IV, Mem oria (ANES) 1- Drug form: l 18:10: INJ, ONCE, Stop date: 08/12/20 12:10:00 GAS BRAZER ondansetron 2019-10 No Route: IV, Memoria (ANES) 1- Drug form: l 18:10: INJ, ONCE, Stop date: 08/12/20 12:10:00 GAS BRAZER metoclopram 2019-10 No Route: IV, Memoria jeanna (ANES) 1- Drug form: l 18:10: INJ, ONCE, Stop date: 08/12/20 12:10:00 GAS BRAZER fentaNYL 2019-10 No Route: IV, Mem oria (ANES) 1- Drug form: l 18:10: INJ, ONCE, Stop date: 08/12/20 12:10:00 GAS BRAZER lidocaine 2019-10 No Route: IV, Me moria (ANES) 1- Drug form: l 18:10: INJ, ONCE, Stop date: 08/12/20 12:10:00 GAS BRAZER propofol 2019-10 No Route: IV, Mem oria (ANES) 1- Drug form: l 18:10: INJ, ONCE, Stop date: 08/12/20 12:10:00 GAS BRAZER ondansetron 2019-10 No Route: IV, Memoria (ANES) 1- Drug form: l 18:10: INJ, ONCE, Stop date: 08/12/20 12:10:00 GAS BRAZER metoclopram 2019-10 No Route: IV, Memoria jeanna (ANES) 1- Drug form: l 18:10: INJ, ONCE, Stop date: 08/12/20 12:10:00 GAS BRAZER fentaNYL 2019-10 No Route: IV, Mem oria (ANES) 1- Drug form: l 18:10: INJ, ONCE, Stop date: 08/12/20 12:10:00 GAS BRAZER lidocaine 2019-10 No Route: IV, Me moria (ANES) 1-04 Drug form: l 18:10: INJ, ONCE, Stop date: 08/12/20 12:10:00 GAS BRAZER propofol 2019-10 No Route: IV, Mem oria (ANES) 1- Drug form: l 18:10: INJ, ONCE, Stop date: 08/12/20 12:10:00 GAS BRAZER ondansetron 2019-10 No Route: IV, Memoria (ANES) 1- Drug form: l 18:10: INJ, ONCE, Stop date: 08/12/20 12:10:00 GAS BRAZER metoclopram 2019-10 No Route: IV, Memoria jeanna (ANES) 10-12 Drug form: l 18:10: INJ, ONCE, Stop date: 08/12/20 12:10:00 G[place] BRA[facility] ceFAZolin 2019-10 No Route: IV, Me moria (ANES) 1- Drug form: l 17:50: INJ, ONCE, Stop date: 08/12/20 11:50:00 GAS BRAZER ceFAZolin 2019-10 No Route: IV, Me moria (ANES) 10-12 Drug form: l 17:50: INJ, ONCE, Stop date: 08/12/20 11:50:00 GAS BRAZER ceFAZolin 2019-10 No Route: IV, Me moria (ANES) 1- Drug form: l 17:50: INJ, ONCE, Stop date: 08/12/20 11:50:00 GAS BRAZER ceFAZolin 2019-10 No Route: IV, Me moria (ANES) 1- Drug form: l 17:50: INJ, ONCE, Stop date: 08/12/20 11:50:00 GAS BRAZER Sodium 2019-10 No Route: IV, Memor ia Chloride 1-04 Total l 0.9% IV 17:14: Volume: Marlo (ANES) 500 00 500, Start mL date: 08/12/20 11:14:00 GAS BRAZER, Stop date: 08/12/20 12:14:00 GAS BRAZER Sodium 2019-10 No Route: IV, Memor ia Chloride 1-04 Total l 0.9% IV 17:14: Volume: Marlo (ANES) 500 00 500, Start mL date: 08/12/20 11:14:00 GAS BRAZER, Stop date: 08/12/20 12:14:00 GAS BRAZER Sodium 2019- No Route: IV, Memor ia Chloride 1-04 Total l 0.9% IV 17:14: Volume: Marlo (ANES) 500 00 500, Start mL date: 08/12/20 11:14:00 GAS BRAZER, Stop date: 08/12/20 12:14:00 GAS BRAZER Sodium 2020-1 No Route: IV, Memor ia Chloride 1-04 Total l 0.9% IV 17:14: Volume: Marlo (ANES) 500 00 500, Start mL date: 08/12/20 11:14:00 GAS BRAZER, Stop date: 08/12/20 12:14:00 GAS BRAZER Sodium 2020-1 No 500 mL, Memoria Chloride 1-04 Rate: 75 l 0.9% IV 500 16:52: ml/hr, Herm dionne mL 00 Infuse over: 6.7 hr, Route: IV, Dosing Weight 111.182 kg, Total Volume: 500, Start date: 08/12/20 10:52:00 GAS BRAZER, Duration: 1 doses or times, Stop date: 08/12/20 17:33:00 GAS BRAZER, 2.32, m2, 0 Sodium 2020-1 No 500 mL, Memoria Chloride 1-04 Rate: 75 l 0.9% IV 500 16:52: ml/hr, Herm dionne mL 00 Infuse over: 6.7 hr, Route: IV, Dosing Weight 111.182 kg, Total Volume: 500, Start date: 08/12/20 10:52:00 GAS BRAZER, Duration: 1 doses or times, Stop date: 08/12/20 17:33:00 GAS BRAZER, 2.32, m2, 0 Sodium 2020-1 No 500 mL, Memoria Chloride 1-04 Rate: 75 l 0.9% IV 500 16:52: ml/hr, Herm dionne mL 00 Infuse over: 6.7 hr, Route: IV, Dosing Weight 111.182 kg, Total Volume: 500, Start date: 08/12/20 10:52:00 GAS BRAZER, Duration: 1 doses or times, Stop date: 08/12/20 17:33:00 GAS BRAZER, 2.32, m2, 0 Sodium 2020-1 No 500 mL, Memoria Chloride 1-04 Rate: 75 l 0.9% IV 500 16:52: ml/hr, Herm dionne mL 00 Infuse over: 6.7 hr, Route: IV, Dosing Weight 111.182 kg, Total Volume: 500, Start date: 08/12/20 10:52:00 GAS BRAZER, Duration: 1 doses or times, Stop date: 08/12/20 17:33:00 GAS BRAZER, 2.32, m2, 0 Potassium 2019-10 No Notes: Memori a Chloride 1-04 (Same as: l 13:46: K-Dur 20) [place] "Do Not Crush" Give with food and full glass of water For patients unable to swallow tablet, dissolve in one half glass of water. Allow about 2 minutes for the tablets to disintegra te. Stir before giving to prepare slurry and administer . Please exclude Patient s with feeding tube less than 14 Turkmen (Dobhoff, J-tube etc) and pediatric and patients. Potassium 2019-10 No Notes: Memori a Chloride 1-04 (Same as: l 13:46: K-Dur 20) [place] 00 "Do Not Crush" Give with food and full glass of water For patients unable to swallow tablet, dissolve in one half glass of water. Allow about 2 minutes for the tablets to disintegra te. Stir before giving to prepare slurry and administer . Please exclude Patient s with feeding tube less than 14 Turkmen (Dobhoff, J-tube etc) and pediatric and patients. Potassium 2019-10 No Notes: Memori a Chloride 1-04 (Same as: l 13:46: K-Dur 20) [place] "Do Not Crush" Give with food and full glass of water For patients unable to swallow tablet, dissolve in one half glass of water. Allow about 2 minutes for the tablets to disintegra te. Stir before giving to prepare slurry and administer . Please exclude Patient s with feeding tube less than 14 Turkmen (Dobhoff, J-tube etc) and pediatric and patients. Potassium 2019-10 No Notes: Memori a Chloride 1-04 (Same as: l 13:46: K-Dur 20) [place] 00 "Do Not Crush" Give with food and full glass of water For patients unable to swallow tablet, dissolve in one half glass of water. Allow about 2 minutes for the tablets to disintegra te. Stir before giving to prepare slurry and administer . Please exclude Patient s with feeding tube less than 14 Turkmen (Dobhoff, J-tube etc) and pediatric and patients. Hydralazine 2019-10 No 10 mg, Kojo lynn -03 Route: l 21:11: IVP, Q4H, [place] 00 Dosing Weight 111.182, kg, PRN Hypertensi on, Start date: 08/11/20 15:11:00 GAS BRAZER, Duration: 30 day, Stop date: 09/10/20 15:10:00 GAS BRAZER Hydralazine 2020-1 No 10 mg, Kojo lynn 1-03 Route: l 21:11: IVP, Q4H, [place] 00 Dosing Weight 111.182, kg, PRN Hypertensi on, Start date: 08/11/20 15:11:00 GAS BRAZER, Duration: 30 day, Stop date: 09/10/20 15:10:00 GAS BRAZER Hydralazine 2020-1 No 10 mg, Kojo lynn 1-03 Route: l 21:11: IVP, Q4H, [place] 00 Dosing Weight 111.182, kg, PRN Hypertensi on, Start date: 08/11/20 15:11:00 GAS BRAZER, Duration: 30 day, Stop date: 09/10/20 15:10:00 GAS BRAZER Hydralazine 2020-1 No 10 mg, Kojo lynn 1-03 Route: l 21:11: IVP, Q4H, [place] 00 Dosing Weight 111.182, kg, PRN Hypertensi on, Start date: 08/11/20 15:11:00 GAS BRAZER, Duration: 30 day, Stop date: 09/10/20 15:10:00 GAS BRAZER Potassium 2020- No Notes: Memori a Chloride 1-03 (Same as: l 14:12: K-Dur 20) [place] 00 "Do Not Crush" Give with food and full glass of water For patients unable to swallow tablet, dissolve in one half glass of water. Allow about 2 minutes for the tablets to disintegra te. Stir before giving to prepare slurry and administer . Please exclude Patient s with feeding tube less than 14 Turkmen (Dobhoff, J-tube etc) and pediatric and patients. Potassium 2020-1 No Notes: Memori a Chloride 1-03 (Same as: l 14:12: K-Dur 20) [place] 00 "Do Not Crush" Give with food and full glass of water For patients unable to swallow tablet, dissolve in one half glass of water. Allow about 2 minutes for the tablets to disintegra te. Stir before giving to prepare slurry and administer . Please exclude Patient s with feeding tube less than 14 Turkmen (Dobhoff, J-tube etc) and pediatric and patients. Potassium 2020-1 No Notes: Memori a Chloride 1- (Same as: l 14:12: K-Dur 20) [place] 00 "Do Not Crush" Give with food and full glass of water For patients unable to swallow tablet, dissolve in one half glass of water. Allow about 2 minutes for the tablets to disintegra te. Stir before giving to prepare slurry and administer . Please exclude Patient s with feeding tube less than 14 Turkmen (Dobhoff, J-tube etc) and pediatric and patients. Potassium 2019-10 No Notes: Memori a Chloride 1- (Same as: l 14:12: K-Dur 20) [place] 00 "Do Not Crush" Give with food and full glass of water For patients unable to swallow tablet, dissolve in one half glass of water. Allow about 2 minutes for the tablets to disintegra te. Stir before giving to prepare slurry and administer . Please exclude Patient s with feeding tube less than 14 Turkmen (Dobhoff, J-tube etc) and pediatric and patients. epoetin 2019-10 No Notes: Memoria franca - (Same as: l 15:00: Procrit) [place] 00 epoetin franca 2000 unit/1 ml VL Non-formul heydi For dialysis use only (Epogen) WASTE: F/P - Red; E -Red MEDICATION WASTE Product Size: 2000 mg Product Wasted: ___ mg epoetin 2019-10 No Notes: Memoria franca 10-10 (Same as: l 15:00: Procrit) [place] epoetin franca 2000 unit/1 ml VL Non-formul heydi For dialysis use only (Epogen) WASTE: F/P - Red; E -Red MEDICATION WASTE Product Size: 2000 mg Product Wasted: ___ mg epoetin 2019-10 No Notes: Memoria franca - (Same as: l 15:00: Procrit) [place] 00 epoetin fr[place] 2000 unit/1 ml VL Non-formul heydi For dialysis use only (Epogen) WASTE: F/P - Red; E -Red MEDICATION WASTE Product Size: 2000 mg Product Wasted: ___ mg epoetin 2019-10 No Notes: Memoria franca 1- (Same as: l 15:00: Procrit) epoetin franca 2000 unit/1 ml VL Non-formul heydi For dialysis use only (Epogen) WASTE: F/P - Red; E -Red MEDICATION WASTE Product Size: 2000 mg Product Wasted: ___ mg 2019-10 No Notes: Memoria 10-10 (Same As: l 04:24: Ambien) Amb2019-10 No Notes: Memoria 10-10 (Same As: l 04:24: Ambien) 2019-10 No Notes: Memoria 10-10 (Same As: l 04:24: Ambien) Ambien 2019-10 No Notes: Memoria 10-10 (Same As: l 04:24: Ambien) Melatonin 2019-10 No Notes: Kojo lynn MG [...] tab, PO, l MG Oral 02:55: Bedtime, Arfael n Tablet 00 PRN for [Ambien] sleep, [...] unit, 10 l 15:10: mL, Route: [place] DIALYSIS, Drug form: INJ, ONCALL, Dosing Weight 111.182, kg, PRN Dialysis, Priority: STAT, Start date: 08/09/20 9:10:00 GAS BRAZER, Duration: 1 doses or times, Stop date: Limited # of times, 0 heparin 2019-10 No 10,000 Memoria 1-01 unit, 10 l 15:10: mL, Route: [place] DIALYSIS, Drug form: INJ, ONCALL, Dosing Weight 111.182, kg, PRN Dialysis, Priority: STAT, Start date: 08/09/20 9:10:00 GAS BRAZER, Duration: 1 doses or times, Stop date: Limited # of times, 0 heparin 2019-10 No 10,000 Memoria 1-01 unit, 10 l 15:10: mL, Route: [place] DIALYSIS, Drug form: INJ, ONCALL, Dosing Weight 111.182, kg, PRN Dialysis, Priority: STAT, Start date: 08/09/20 9:10:00 GAS BRAZER, Duration: 1 doses or times, Stop date: Limited # of times, 0 heparin 2019-10 No 10,000 Memoria 1-01 unit, 10 l 15:10: mL, Route: [place] 00 DIALYSIS, Drug form: INJ, ONCALL, Dosing Weight 111.182, kg, PRN Dialysis, Priority: STAT, Start date: 08/09/20 9:10:00 GAS BRAZER, Duration: 1 doses or times, Stop date: [...] franca 0-31 (Same as: l 14:30: Procrit) [place] 00 epoetin franca 34444 unit/1 ml VL. Non-formul heydi For dialysis use only. (Procrit) WASTE: F/P - Red; E -Red MEDICATION WASTE Product Size: 72844 unit Product Wasted: ___ unit epoetin 2019-10 No Notes: Memoria franca 0-31 (Same as: l 14:30: Procrit) [place] 00 epoetin fr[place] 63660 unit/1 ml VL. Non-formul heydi For dialysis use only. (Procrit) WASTE: F/P - Red; E -Red MEDICATION WASTE Product Size: 01170 unit Product Wasted: ___ unit epoetin 2019-10 No Notes: Memoria franca 0-31 (Same as: l 14:30: Procrit) [place] 00 epoetin franca 80102 unit/1 ml VL. Non-formul heydi For dialysis use only. (Procrit) WASTE: F/P - Red; E -Red MEDICATION WASTE Product Size: 78607 unit Product Wasted: ___ unit epoetin 2019-10 No Notes: Memoria franca 0-31 (Same as: l 14:30: Procrit) [place] 00 epoetin franca 94044 unit/1 ml VL. Non-formul heydi For dialysis use only. (Procrit) WASTE: F/P - Red; E -Red MEDICATION WASTE Product Size: 81341 unit Product Wasted: ___ unit Sodium 2020-1 No 250 mL, Memoria Chloride 0-31 Rate: To l 0.9% 14:13: prime line [place] (titrate) 00 and flush 250 mL remaining blood products., Dosing Weight 111.182, kg, Route: IV, Total Volume: 250, Priority: Routine, Start Date: 08/08/20 9:13:00 CDT, Duration: 1 day, Stop date: 08/09/20 9:12:00 GAS BRAZER, Replace Every: 24 hr, 0 Sodium 2020-1 No 250 mL, Memoria Chloride 0-31 Rate: To l 0.9% 14:13: prime line [place] (titrate) 00 and flush 250 mL remaining blood products., Dosing Weight 111.182, kg, Route: IV, Total Volume: 250, Priority: Routine, Start Date: 08/08/20 9:13:00 CDT, Duration: 1 day, Stop date: 08/09/20 9:12:00 GAS BRAZER, Replace Every: 24 hr, 0 Sodium 2020-1 No 250 mL, Memoria Chloride 0-31 Rate: To l 0.9% 14:13: prime line [place] (titrate) 00 and flush 250 mL remaining blood products., Dosing Weight 111.182, kg, Route: IV, Total Volume: 250, Priority: Routine, Start Date: 08/08/20 9:13:00 CDT, Duration: 1 day, Stop date: 08/09/20 9:12:00 GAS BRAZER, Replace Every: 24 hr, 0 Sodium 2020-1 No 250 mL, Memoria Chloride 0-31 Rate: To l 0.9% 14:13: prime line [place] (titrate) 00 and flush 250 mL remaining blood products., Dosing Weight 111.182, kg, Route: IV, Total Volume: 250, Priority: Routine, Start Date: 08/08/20 9:13:00 CDT, Duration: 1 day, Stop date: 08/09/20 9:12:00 GAS BRAZER, Replace Every: 24 hr, 0 Amlodipine 2020- No 1 cap, Memor ia 10 MG / 0-31 Route: PO, l Benazepril 14:00: Drug Form: H ermann hydrochlori 00 CAP, de 20 MG Dosing Oral Weight Capsule 111.182, kg, Daily, Start date: 08/08/20 9:00:00 CDT, Duration: 30 day, Stop date: 09/06/20 9:00:00 GAS BRAZER carvedilol 2019-10 No 12.5 mg, Mem oria 0-31 Route: PO, l 14:00: Drug form: [place] 00 TAB, Q12H, Dosing Weight 111.182, kg, Start date: 08/08/20 9:00:00 CDT, Duration: 30 day, Stop date: 09/06/20 21:00:00 GAS BRAZER amLODIPine 2019-10 No Notes: Memor ia 0-31 (Same as: l 14:00: Norvasc) lisinopril 2019-10 No Notes: Memor ia 0-31 (Same as: l 14:00: Prinivil, [place] 00 Zestril) Amlodipine 2019-10 No 1 cap, Memor ia 10 MG / 0-31 Route: PO, l Benazepril 14:00: Drug Form: H ermann hydrochlori 00 CAP, de 20 MG Dosing Oral Weight Capsule 111.182, kg, Daily, Start date: 08/08/20 9:00:00 CDT, Duration: 30 day, Stop date: 09/06/20 9:00:00 GAS BRAZER carvedilol 2019-10 No 12.5 mg, Mem oria 0-31 Route: PO, l 14:00: Drug form: [place] 00 TAB, Q12H, Dosing Weight 111.182, kg, Start date: 08/08/20 9:00:00 CDT, Duration: 30 day, Stop date: 09/06/20 21:00:00 GAS BRAZER amLODIPine 2019-10 No Notes: Memor ia 0-31 [...] Duration: 30 day, Stop date: 09/06/20 9:00:00 GAS BRAZER carvedilol 2019-10 No 12.5 mg, Mem oria 0-31 Route: PO, l 14:00: Drug form: [place] 00 TAB, Q12H, Dosing Weight 111.182, kg, Start date: 08/08/20 9:00:00 CDT, Duration: 30 day, Stop date: 09/06/20 21:00:00 GAS BRAZER amLODIPine 2019-10 No Notes: Memor ia 0-31 (Same as: l 14:00: Norvasc) [place] lisinopril 2019-10 No Notes: Memor ia 0-31 (Same as: l 14:00: Prinivil, [place] Zestril) Amlodipine 2019-10 No 1 cap, Memor ia 10 MG / 0-31 Route: PO, l Benazepril 14:00: Drug Form: H ermann hydrochlori 00 CAP, de 20 MG Dosing Oral Weight Capsule 111.182, kg, Daily, Start date: 08/08/20 9:00:00 CDT, Duration: 30 day, Stop date: 09/06/20 9:00:00 GAS BRAZER carvedilol 2019-10 No 12.5 mg, Mem oria 0-31 Route: PO, l 14:00: Drug form: [place] 00 TAB, Q12H, Dosing Weight 111.182, kg, Start date: 08/08/20 9:00:00 CDT, Duration: 30 day, Stop date: 09/06/20 21:00:00 GAS BRAZER amLODIPine 2019-10 No Notes: Memor ia 0-31 (Same as: l 14:00: Norvasc) [place] lisinopril 2019-10 No Notes: Memor ia 0-31 (Same as: l 14:00: Prinivil, [place] 00 Zestril) Dilaudid 2019-10 No Notes: Memoria 0-31 Same as: l 13:46: Dilaudid [place] 00 Dilaudid 2019-10 No Notes: Memoria 0-31 Same as: l 13:46: Dilaudid [place] Dilaudid 2019-10 No Notes: Memoria 0-31 Same as: l 13:46: Dilaudid [place] 00 Dilaudid 2019-10 No Notes: Memoria 0-31 Same as: l 13:46: Dilaudid [place] 00 Epogen 2019-10 No 11,000 Memoria 0-31 unit, l 13:01: Route: [place] 00 SUB-Q, Drug form: INJ, Q-M-W-F, Dosing Weight 111.182, kg, Priority: NOW, Start date: 08/08/20 8:01:00 CDT, Duration: 30 day, Stop date: 09/04/20 9:00:00 GAS BRAZER Epogen 2019-10 No 11,000 Memoria 0-31 unit, l 13:01: Route: [place] 00 SUB-Q, Drug form: INJ, Q-M-W-F, Dosing Weight 111.182, kg, Priority: NOW, Start date: 08/08/20 8:01:00 CDT, Duration: 30 day, Stop date: 09/04/20 9:00:00 GAS BRAZER Epogen 2019-10 No 11,000 Memoria 0-31 unit, l 13:01: Route: [place] 00 SUB-Q, Drug form: INJ, Q-M-W-F, Dosing Weight 111.182, kg, Priority: NOW, Start date: 08/08/20 8:01:00 CDT, Duration: 30 day, Stop date: 09/04/20 9:00:00 GAS BRAZER Epogen 2019-10 No 11,000 Mem[facility] 0-31 unit, l 13:01: Route: [place] 00 SUB-Q, Drug form: INJ, Q-M-W-F, Dosing Weight 111.182, kg, Priority: NOW, Start date: 08/08/20 8:01:00 CDT, Duration: 30 day, Stop date: 09/04/20 9:00:00 GAS BRAZER Morphine 2019-10 No Notes: Memoria 0-31 (Same l 10:27: as:MORPhin [place] 00 e Sulfate) Morphine 2019-10 No Notes: Memoria 0-31 (Same l 10:27: as:MORPhin [place] 00 e Sulfate) Morphine 2019-10 No Notes: Memoria 0-31 (Same l 10:27: as:MORPhin [place] 00 e Sulfate) Morphine 2019-10 No Notes: Memoria 0-31 (Same l 10:27: as:MORPhin [place] 00 e Sulfate) Morphine 2019-10 No Notes: Memoria 0-31 (Same l 01:44: as:MORPhin [place] 00 e Sulfate) Morphine 2019-10 No Notes: Memoria 0-31 (Same l 01:44: as:MORPhin [place] 00 e Sulfate) Morphine 2019-10 No Notes: Memoria 0-31 (Same l 01:44: as:MORPhin [place] 00 e Sulfate) Morphine 2019-10 No Notes: Memoria 0-31 (Same l 01:44: as:MORPhin [place] 00 e Sulfate) normal 2019-10 No 2,000 mL, Memori a saline 0.9% 0-30 Rate: 100 l IV 2,000 mL 22:22: ml/hr, Herm dionne 00 Infuse over: 20 hr, Route: IV, Dosing Weight 111.182 kg, Total Volume: 2,000, Start date: 08/07/20 17:22:00 CDT, Duration: 30 day, Stop date: 09/06/20 17:21:00 GAS BRAZER, 2.32, m2, 0 normal 2019-10 No 2,000 mL, Memori a saline 0.9% 0-30 Rate: 100 l IV 2,000 mL 22:22: ml/hr, Herm dionne 00 Infuse over: 20 hr, Route: IV, Dosing Weight 111.182 kg, Total Volume: 2,000, Start date: 08/07/20 17:22:00 CDT, Duration: 30 day, Stop date: 09/06/20 17:21:00 GAS BRAZER, 2.32, m2, 0 normal 2019-10 No 2,000 mL, Memori a saline 0.9% 0-30 Rate: 100 l IV 2,000 mL 22:22: ml/hr, Herm dionne 00 Infuse over: 20 hr, Route: IV, Dosing Weight 111.182 kg, Total Volume: 2,000, Start date: 08/07/20 17:22:00 CDT, Duration: 30 day, Stop date: 09/06/20 17:21:00 GAS BRAZER, 2.32, m2, 0 normal 2019-10 No 2,000 mL, Memori a saline 0.9% 0-30 Rate: 100 l IV 2,000 mL 22:22: ml/hr, Herm dionne 00 Infuse over: 20 hr, Route: IV, Dosing Weight 111.182 kg, Total Volume: 2,000, Start date: 08/07/20 17:22:00 CDT, Duration: 30 day, Stop date: 09/06/20 17:21:00 GAS BRAZER, 2.32, m2, 0 Lasix 2019-10 No 80 mg, Memoria 0-30 Route: l 13:00: IVP, Drug [place] 00 form: INJ, BID Diuretic, Dosing Weight 117.002, kg, Start date: 08/07/20 8:00:00 CDT, Duration: 30 day, Stop date: 09/05/20 16:00:00 GAS BRAZER Lasix 2019- No 80 mg, Memoria 0-30 Route: l 13:00: IVP, Drug [place] 00 form: INJ, BID Diuretic, Dosing Weight 117.002, kg, Start date: 08/07/20 8:00:00 CDT, Duration: 30 day, Stop date: 09/05/20 16:00:00 GAS BRAZER Lasix 2019- No 80 mg, Memoria 0-30 Route: l 13:00: IVP, Drug [place] 00 form: INJ, BID Diuretic, Dosing Weight 117.002, kg, Start date: 08/07/20 8:00:00 CDT, Duration: 30 day, Stop date: 09/05/20 16:00:00 GAS BRAZER Lasix 2019- No 80 mg, Memoria 0-30 Route: l 13:00: IVP, Drug [place] 00 form: INJ, BID Diuretic, Dosing Weight 117.002, kg, Start date: 08/07/20 8:00:00 CDT, Duration: 30 day, Stop date: 09/05/20 16:00:00 GAS BRAZER Magnesium 2019- No Notes: Memori a Sulfate 0-30 WASTE: F/P l 12:58: - Sink; E - Municipal Trash Bin Potassium 2019- No Notes: Memori a Chloride 0-30 (Same [...] s with feeding tube less than 14 Turkmen (Dobhoff, J-tube etc) and pediatric and patients. Magnesium 2019-10 No Notes: Memori a Sulfate 0-30 WASTE: F/P l 12:58: - Sink; E [place] 00 - Municipal Trash Bin Potassium 2019-10 No Notes: Memori a Chloride 0-30 (Same as: l 12:58: K-Dur 20) [place] 00 "Do Not Crush" Give with food and full glass of water For patients unable to swallow tablet, dissolve in one half glass of water. Allow about 2 minutes for the tablets to disintegra te. Stir before giving to prepare slurry and administer . Please exclude Patient s with feeding tube less than 14 [place] (Dobhoff, J-tube etc) and pediatric and patients. Magnesium 2019-10 No Notes: Memori a Sulfate 0-30 WASTE: F/P l 12:58: - Sink; E [place] 00 - Municipal Trash Bin Potassium 2019-10 No Notes: Memori a Chloride 0-30 (Same as: l 12:58: K-Dur 20) [place] 00 "Do Not Crush" Give with food and full glass of water For patients unable to swallow tablet, dissolve in one half glass of water. Allow about 2 minutes for the tablets to disintegra te. Stir before giving to prepare slurry and administer . Please exclude Patient s with feeding tube less than 14 Turk[place] (Dobhoff, J-tube etc) and pediatric and patients. Magnesium 2019-10 No Notes: Memori a Sulfate 0-30 WASTE: F/P l 12:58: - Sink; E [place] 00 - Municipal Trash Bin Potassium 2019-10 [...] s with feeding tube less than 14 Turk[place] (Dobhoff, J-tube etc) and pediatric and patients. [...] Infuse at l 11:00: a rate of [place] 00 10 mEq/hr. (Same as: KCL) Potassium [...] Duration: 30 day, Stop date: 09/06/20 5:36:00 GAS BRAZER, 2.32, m2 normal 2019-10 No 250 mL, Memoria saline 0.9% 0-30 Rate: 50 l IV 250 mL 10:37: ml/hr, Rafael n 00 Infuse over: 5 hr, Route: IV, Dosing Weight 111.182 kg, Total Volume: 250, Start date: 08/07/20 5:37:00 CDT, Duration: 30 day, Stop date: 09/06/20 5:36:00 GAS BRAZER, 2.32, m2 normal 2019-10 No 250 mL, Memoria saline 0.9% 0-30 Rate: 50 l IV 250 mL 10:37: ml/hr, Rafael n 00 Infuse over: 5 hr, Route: IV, Dosing Weight 111.182 kg, Total Volume: 250, Start date: 08/07/20 5:37:00 CDT, Duration: 30 day, Stop date: 09/06/20 5:36:00 GAS BRAZER, 2.32, m2 normal 2019-10 No 250 mL, Memoria saline 0.9% 0-30 Rate: 50 l IV 250 mL 10:37: ml/hr, Rafael n 00 Infuse over: 5 hr, Route: IV, Dosing Weight 111.182 kg, Total Volume: 250, Start date: 08/07/20 5:37:00 CDT, Duration: 30 day, Stop date: 09/06/20 5:36:00 GAS BRAZER, 2.32, m2 Hydralazine 2019-10 No Notes: Kojo [...] Memoria 0-30 (Same As: l 05:20: Ambien) [place] Ambien 2019-10 No Notes: Memoria 0-30 (Same As: l 05:20: Ambien) [place] 00 Ambien 2019-10 No Notes: Memoria 0-30 (Same As: l 05:20: Ambien) [place] 00 Ambien 2019-10 No Notes: Memoria 0-30 (Same As: l 05:20: Ambien) [place] heparin 2019-10 No Notes: Memoria 0-30 porcine l 05:00: heparin [place] 00 heparin 2019-10 No Notes: [facility] 0-30 porcine l 05:00: heparin [place] heparin 2019-10 No Notes: Memoria 0-30 porcine l 05:00: heparin [place] 00 heparin 2019-10 No Notes: Memoria 0-30 porcine l 05:00: heparin [place] 00 Lasix 2019-10 No Notes: Memoria 0-30 (Same as: l 01:32: Lasix) [place] 00 MEDICATION WASTE Product Size: 40 mg [...] Memoria 0-30 (Same as: l 01:32: Lasix) [place] 00 MEDICATION WASTE Product Size: 40 mg Product Wasted: ___ mg Ondansetron 2019-10 No Notes: Kojo lynn 0-30 (Same as: l :31: Zofran) [place] 00 MEDICATION WASTE Product Size: 4 mg Product Wasted: ___ mg Acetaminoph 2019-10 No Notes: Do M emoria en 325 MG / 0-30 not exceed l Hydrocodone 01:31: 4gm/day of [place] Bitartrate 00 acetaminop 10 MG Oral hen. (Same Tablet as: Mcintosh [Mcintosh 325/10) 10/325] Acetaminoph 2019-10 No Notes: Kojo lynn en 325 MG / 0-30 (Same as: l Hydrocodone 01:31: Mcintosh [place] nn Bitartrate 00 325/5) Do 5 MG Oral not exceed Tablet 4gm/day of [Mcintosh acetaminop 5/325] hen. Ondansetron 2019-10 No Notes: Kojo lynn 0-30 (Same as: l :31: Zofran) [place] 00 MEDICATION WASTE Product Size: 4 mg Product Wasted: ___ mg Acetaminoph 2019-10 No Notes: Do M emoria en 325 MG / 0-30 not exceed l Hydrocodone 01:31: 4gm/day of [place] Bitartrate 00 acetaminop 10 MG Oral hen. (Same Tablet as: Mcintosh [Mcintosh 325/10) 10/325] Acetaminoph 2019-10 No Notes: Kojo lynn en 325 MG / 0-30 (Same as: l Hydrocodone 01:31: Mcintosh [place] nn Bitartrate 00 325/5) Do 5 MG Oral not exceed Tablet 4gm/day of [Mcintosh acetaminop 5/325] hen. Ondansetron 2019-10 No Notes: Kojo lynn 0-30 (Same as: l :31: Zofran) [place] 00 MEDICATION WASTE Product Size: 4 mg Product Wasted: ___ mg Acetaminoph 2019-10 No Notes: Do M emoria en 325 MG / 0-30 not exceed l Hydrocodone 01:31: 4gm/day of [place] Bitartrate 00 acetaminop 10 MG Oral hen. (Same Tablet as: Mcintosh [Mcintosh 325/10) 10/325] Acetaminoph 2019-10 No Notes: Kojo lynn en 325 MG / 0-30 (Same as: l Hydrocodone :31: Mcintosh [place] nn Bitartrate 00 325/5) Do 5 MG Oral not exceed Tablet 4gm/day of [Mcintosh acetaminop 5/325] hen. Ondansetron 2019-10 No Notes: Kojo lynn 0-30 (Same as: l 01:31: Zofran) [place] 00 MEDICATION WASTE Product Size: 4 mg Product Wasted: ___ mg Acetaminoph 2019-10 No Notes: Do M emoria en 325 MG / 0-30 not exceed l Hydrocodone :31: 4gm/day of [place] Bitartrate 00 acetaminop 10 MG Oral hen. (Same Tablet as: Mcintosh [Mcintosh 325/10) 10/325] Acetaminoph 2019-10 No Notes: Kojo lynn en 325 MG / 0-30 (Same as: l Hydrocodone :31: Mcintosh [place] nn Bitartrate 00 325/5) Do 5 MG Oral not exceed Tablet 4gm/day of [Mcintosh acetaminop 5/325] hen. Dilaudid 2019-10 No 1 mg, Memoria 0-30 Route: l 01:16: IVP, ONCE, [place] 00 Dosing Weight 117.002, kg, Priority: STAT, Start date: 08/06/20 20:16:00 CDT, Stop date: 08/06/20 20:16:00 CDT Dilaudid 2019-10 No 1 mg, Memoria 0-30 Route: l 01:16: IVP, ONCE, [place] Dosing Weight 117.002, kg, Priority: STAT, Start date: 08/06/20 20:16:00 CDT, Stop date: 08/06/20 20:16:00 CDT Dilaudid 2019-10 No 1 mg, Memoria 0-30 Route: l 01:16: IVP, ONCE, [place] 00 Dosing Weight 117.002, kg, Priority: STAT, [...] Duration: 30 day, Stop date: 09/05/20 19:08:00 GAS BRAZER, 0 Glucagon 2020-1 No 1 mg, Memoria 0-30 Route: IM, l 01:09: Drug form: [place] 00 PDR/INJ, PRN, Dosing Weight 117.002, kg, PRN Blood Glucose Results, Start date: 08/06/20 20:09:00 CDT, Duration: 30 day, Stop date: 09/05/20 19:08:00 GAS BRAZER, 0 Dextrose 2020-1 No 12.5 gm, Memor ia 50% Syringe 0-30 25 mL, l ([id number]) 01:09: Route: IVP, Drug Form: INJ, Dosing Weight 117.002, kg, PRN, PRN Blood Glucose Results, Start date: 08/06/20 20:09:00 CDT, Duration: 30 day, Stop date: 09/05/20 19:08:00 GAS BRAZER, 0 Glucagon 2020-1 No 1 mg, Memoria 0-30 Route: IM, l 01:09: Drug form: [place] 00 PDR/INJ, PRN, Dosing Weight 117.002, kg, PRN Blood Glucose Results, Start date: 08/06/20 20:09:00 CDT, Duration: 30 day, Stop date: 09/05/20 19:08:00 GAS BRAZER, 0 Dextrose 2020-1 No 12.5 gm, Memor ia 50% Syringe 0-30 25 mL, l ([id number]) 01:09: Route: [place] IVP, Drug Form: INJ, Dosing Weight 117.002, kg, PRN, PRN Blood Glucose Results, Start date: 08/06/20 20:09:00 CDT, Duration: 30 day, Stop date: 09/05/20 19:08:00 GAS BRAZER, 0 Glucagon 2020-1 No 1 mg, Memoria 0-30 Route: IM, l 01:09: Drug form: [place] 00 PDR/INJ, PRN, Dosing Weight 117.002, kg, PRN Blood Glucose Results, Start date: 08/06/20 20:09:00 CDT, Duration: 30 day, Stop date: 09/05/20 19:08:00 GAS BRAZER, 0 Dextrose 2020-1 No 12.5 gm, Memor ia 50% Syringe 0-30 25 mL, l (D50W) 01:09: Route: [place] 00 IVP, Drug Form: INJ, Dosing Weight 117.002, kg, PRN, PRN Blood Glucose Results, Start date: 08/06/20 20:09:00 CDT, Duration: 30 day, Stop date: 09/05/20 19:08:00 GAS BRAZER, 0 Glucagon 2020- No 1 mg, Memoria 0-30 Route: IM, l 01:09: Drug form: [place] 00 PDR/INJ, PRN, Dosing Weight 117.002, kg, PRN Blood Glucose Results, Start date: 08/06/20 20:09:00 CDT, Duration: 30 day, Stop date: 09/05/20 19:08:00 GAS BRAZER, 0 Magnesium 2020-1 No Notes: Memori a Sulfate 0-30 WASTE: F/P l 00:44: - Sink; E - Municipal Trash Bin Potassium 2019- No Notes: Memori a Chloride 0-30 (Same [...] s with feeding tube less than 14 Turk[place] (Dobhoff, J-tube etc) and pediatric and patients. Magnesium 2020-1 No Notes: Memori a Sulfate 0-30 WASTE: F/P l 00:44: - Sink; E - Municipal Trash Bin Potassium 2019-1 No Notes: Memori a Chloride 0-30 (Same as: l 00:44: K-Dur 20) [place] 00 "Do Not Crush" Give with food and full glass of water For patients unable to swallow tablet, dissolve in one half glass of water. Allow about 2 minutes for the tablets to disintegra te. Stir before giving to prepare slurry and administer . Please exclude Patient s with feeding tube less than 14 Turk[place] (Dobhoff, J-tube etc) and pediatric and patients. Magnesium 2019-10 No Notes: Memori a Sulfate 0-30 WASTE: F/P l 00:44: - Sink; E [place] 00 - Municipal Trash Bin Potassium 2019-10 No Notes: Memori a Chloride 0-30 (Same as: l 00:44: K-Dur 20) [place] "Do Not Crush" Give with food and full glass of water For patients unable to swallow tablet, dissolve in one half glass of water. Allow about 2 minutes for the tablets to disintegra te. Stir before giving to prepare slurry and administer . Please exclude Patient s with feeding tube less than 14 Turk[place] (Dobhoff, J-tube etc) and pediatric and patients. [...] s with feeding tube less than 14 Turk[place] (Dobhoff, J-tube etc) and pediatric and patients. [...] CDT, Stop date: 08/06/20 18:27:00 CDT Dilaudid 2020-1 No 1 mg, Memoria 0-29 Route: l 23:27: IVP, ONCE, Dosing Weight 117.002, kg, Priority: STAT, Start date: 08/06/20 18:27:00 CDT, Stop date: 08/06/20 18:27:00 CDT Dilaudid 2020- No 1 mg, Memoria 0-29 Route: l [...] 0-29 Route: PO, l 22:56: Drug form: [place] ERTAB, ONCE, Dosing Weight 117.002, kg, Priority: STAT, Start date: 08/06/20 17:56:00 CDT, Stop date: 08/06/20 17:56:00 CDT Potassium 2020-1 No 40 mEq, Memor ia Chloride 0-29 Route: PO, l 22:56: Drug form: [place] ERTAB, ONCE, Dosing Weight 117.002, kg, Priority: STAT, Start date: 08/06/20 17:56:00 CDT, Stop date: 08/06/20 17:56:00 CDT Potassium 2020-1 No 40 mEq, Memor ia Chloride 0-29 Route: PO, l 22:56: Drug form: [place] 00 ERTAB, ONCE, Dosing Weight 117.002, kg, Priority: STAT, Start date: 08/06/20 17:56:00 CDT, Stop date: 08/06/20 17:56:00 CDT Morphine 2020-1 No 4 mg, Memoria 0-29 Route: l 22:44: IVP, ONCE, [place] 00 Dosing Weight 117.002, kg, Priority: STAT, Start date: 08/06/20 17:44:00 CDT, Stop date: 08/06/20 17:44:00 CDT Zofran 2020-1 No 4 mg, Memoria 0-29 Route: l 22:44: IVP, Drug [place] 00 form: INJ, ONCE, Dosing Weight 117.002, kg, Priority: STAT, Start date: 08/06/20 17:44:00 CDT, Stop date: 08/06/20 17:44:00 CDT Morphine 2020-1 No 4 mg, Memoria 0-29 Route: l 22:44: IVP, ONCE, [place] 00 Dosing Weight 117.002, kg, Priority: STAT, Start date: 08/06/20 17:44:00 CDT, Stop date: 08/06/20 17:44:00 CDT Zofran 2019-1 No 4 mg, Memoria 0-29 Route: l 22:44: IVP, Drug [place] 00 form: INJ, ONCE, Dosing Weight 117.002, kg, Priority: STAT, Start date: 08/06/20 17:44:00 CDT, Stop date: 08/06/20 17:44:00 CDT Morphine 2020-1 No 4 mg, Memoria 0-29 Route: l 22:44: IVP, ONCE, [place] 00 Dosing Weight 117.002, kg, Priority: STAT, Start date: 08/06/20 17:44:00 CDT, Stop date: 08/06/20 17:44:00 CDT Zofran 2019-1 No 4 mg, Memoria 0-29 Route: l 22:44: IVP, Drug [place] 00 form: INJ, ONCE, Dosing Weight 117.002, kg, Priority: STAT, Start date: 08/06/20 17:44:00 CDT, Stop date: 08/06/20 17:44:00 CDT Morphine 2020-1 No 4 mg, Memoria 0-29 Route: l 22:44: IVP, ONCE, [place] 00 Dosing Weight 117.002, kg, Priority: STAT, Start date: 08/06/20 17:44:00 CDT, Stop date: 08/06/20 17:44:00 CDT Zofran 2019- No 4 mg, Memoria 0 Route: l 22:44: IVP, Drug [place] 00 form: INJ, ONCE, Dosing Weight 117.002, [...] CDT, Stop date: 07/24/20 9:59:00 CDT Potassium 2019- No 40 mEq, 15 Me moria Chloride [...] 00 Refill(s), de 20 MG Pharmacy: [facility], 170.18, cm, 07/06/20 5:14:00 CDT, Height, 105, kg, 07/06/20 5:14:00 CDT, Weight cefdinir 2019-10 Yes 300 mg = 1 Mem oria 300 MG Oral 0-07 cap, PO, l Capsule 17:35: Daily, X 7 Herm dionne day, # 7 cap, 0 Refill(s), Pharmacy: [facility], 170.18, cm, 07/06/20 5:14:00 CDT, Height, 105, kg, 07/06/20 5:14:00 CDT, Weight Metronidazo 2019-10 Yes 500 mg = 1 Memoria le 500 MG 0-07 tab, PO, l Oral Tablet 17:35: Q8H, X 7 He rmann [Flagyl] 00 day, # 21 tab, 0 Refill(s), Pharmacy: [facility], 170.18, cm, 07/06/20 5:14:00 CDT, Height, 105, kg, 07/06/20 5:14:00 CDT, Weight Amlodipine 2019-10 Yes 1 cap, PO, M emoria 10 MG / 0-07 Daily, # l Benazepril 17:35: 30 cap, 0 He rmann hydrochlori 00 Refill(s), de 20 MG Pharmacy: [facility], 170.18, cm, 07/06/20 5:14:00 CDT, Height, 105, kg, 07/06/20 5:14:00 CDT, Weight cefdinir 2019-10 Yes 300 mg = 1 Mem oria 300 MG Oral 0-07 cap, PO, l Capsule 17:35: Daily, X 7 Herm dionne 00 day, # 7 cap, 0 Refill(s), Pharmacy: [facility], 170.18, cm, 07/06/20 5:14:00 CDT, Height, 105, kg, 07/06/20 5:14:00 CDT, Weight Metronidazo 2019-10 Yes 500 mg = 1 Memoria le 500 MG 0-07 tab, PO, l Oral Tablet 17:35: Q8H, X 7 He rmann [Flagyl] 00 day, # 21 tab, 0 Refill(s), Pharmacy: [facility], 170.18, cm, 07/06/20 5:14:00 CDT, Height, 105, kg, 07/06/20 5:14:00 CDT, Weight Amlodipine 2019-10 Yes 1 cap, PO, M emoria 10 MG / 0-07 Daily, # l Benazepril 17:35: 30 cap, 0 He rmann hydrochlori 00 Refill(s), de 20 MG Pharmacy: [facility], 170.18, cm, 07/06/20 5:14:00 CDT, Height, 105, kg, 07/06/20 5:14:00 CDT, Weight cefdinir 2019-10 Yes 300 mg = 1 Mem oria 300 MG Oral 0-07 cap, PO, l Capsule 17:35: Daily, X 7 Herm dionne 00 day, # 7 cap, 0 Refill(s), Pharmacy: [facility], 170.18, cm, 07/06/20 5:14:00 CDT, Height, 105, kg, 07/06/20 5:14:00 CDT, Weight Metronidazo 2019-10 Yes 500 mg = 1 Memoria le 500 MG 0-07 tab, PO, l Oral Tablet 17:35: Q8H, X 7 He rmann [Flagyl] 00 day, # 21 tab, 0 Refill(s), Pharmacy: [facility], 170.18, cm, 07/06/20 5:14:00 CDT, Height, 105, kg, 07/06/20 5:14:00 CDT, Weight Amlodipine 2019-10 Yes 1 cap, PO, M emoria 10 MG / 0-07 Daily, # l Benazepril 17:35: 30 cap, 0 He rmann hydrochlori 00 Refill(s), de 20 MG Pharmacy: [facility], 170.18, cm, 07/06/20 5:14:00 CDT, Height, 105, kg, 07/06/20 5:14:00 CDT, Weight cefdinir 2019-10 Yes 300 mg = 1 Mem oria 300 MG Oral 0-07 cap, PO, l Capsule 17:35: Daily, X 7 Herm dionne 00 day, # 7 cap, 0 Refill(s), Pharmacy: [facility], 170.18, cm, 07/06/20 5:14:00 CDT, Height, 105, kg, 07/06/20 5:14:00 CDT, Weight Metronidazo 2019-10 Yes 500 mg = 1 Memoria le 500 MG 0-07 tab, PO, l Oral Tablet 17:35: Q8H, X 7 He rmann [Flagyl] 00 day, # 21 tab, 0 Refill(s), Pharmacy: [facility], 170.18, cm, 07/06/20 5:14:00 CDT, Height, 105, kg, 07/06/20 5:14:00 CDT, Weight Protonix 2019-10 No Notes: Memoria 0-07 Tablet l 12:30: should not [place] 00 be chewed or crushed. (Same as: Protonix) Protonix 2019-10 No Notes: Memoria 0-07 Tablet l 12:30: should not [place] 00 be chewed or crushed. (Same as: Protonix) Protonix 2019-10 No Notes: Memoria 0-07 Tablet l 12:30: should not [place] 00 be chewed or crushed. (Same as: Protonix) Protonix 2019-10 No Notes: Memoria 0-07 Tablet l 12:30: should not [place] 00 be chewed or crushed. (Same as: Protonix) Potassium 2019-10 No Notes: Memori a Chloride 0-06 (Same as: l 22:47: K-Dur 20) [place] 00 "Do Not Crush" Give with food and full glass of water For patients unable to swallow tablet, dissolve in one half glass of water. Allow about 2 minutes for the tablets to disintegra te. Stir before giving to prepare slurry and administer . Please exclude Patient s with feeding tube less than 14 Turk[place] (Dobhoff, J-tube etc) and pediatric and patients. Potassium 2019-10 No Notes: Memori a Chloride 0-06 (Same as: l 22:47: K-Dur 20) [place] 00 "Do Not Crush" Give with food and full glass of water For patients unable to swallow tablet, dissolve in one half glass of water. Allow about 2 minutes for the tablets to disintegra te. Stir before giving to prepare slurry and administer . Please exclude Patient s with feeding tube less than 14 Turk[place] (Dobhoff, J-tube etc) and pediatric and patients. Potassium 2019-10 No Notes: Memori a Chloride 0-06 (Same as: l 22:47: K-Dur 20) [place] 00 "Do Not Crush" Give with food and full glass of water For patients unable to swallow tablet, dissolve in one half glass of water. Allow about 2 minutes for the tablets to disintegra te. Stir before giving to prepare slurry and administer . Please exclude Patient s with feeding tube less than 14 Turk[place] (Dobhoff, J-tube etc) and pediatric and patients. [...] s with feeding tube less than 14 [place] (Dobhoff, J-tube etc) and pediatric and patients. Clonidine 2019-10 No Notes: Memori a 0-06 (Same As: l 22:46: Catapres) [place] Clonidine 2019-10 No Notes: Memori a 0-06 (Same As: l 22:46: Catapres) [place] Clonidine 2019-10 No Notes: Memori a 0-06 [...] MG/ML 0-06 interfere l Oral 18:00: w/enteral [place] Suspension 00 feeds - [Carafate] Take 1 hr before or 2 hr after antacids, dairy pdt, meals & minerals - On empty stomach. Sucralfate 2019-10 No Notes: February M emoria 100 MG/ML 0-06 interfere l Oral 18:00: w/enteral [place] Suspension 00 feeds - [Carafate] Take 1 hr before or 2 hr after antacids, dairy pdt, meals & minerals - On empty stomach. sevelamer 2019-10 No Notes: Memori a 0-06 Same as: l 17:00: Renvela [place] sevelamer 2019-10 No Notes: Memori a 0-06 Same as: l 17:00: Renvela [place] sevelamer 2019-10 No Notes: Memori a 0-06 Same as: l 17:00: Renvela [place] sevelamer 2019-10 No Notes: Memori a 0-06 Same as: l 17:00: Renvela [place] 00 Potassium 2019-10 No Notes: Memori a [...] s with feeding tube less than 14 Turk[place] (Dobhoff, J-tube etc) and pediatric and patients. Potassium 2019-10 No Notes: Memori a Chloride 0-06 (Same as: l 13:00: K-Dur 20) [place] 00 "Do Not Crush" Give with food and full glass of water For patients unable to swallow tablet, dissolve in one half glass of water. Allow about 2 minutes for the tablets to disintegra te. Stir before giving to prepare slurry and administer . Please exclude Patient s with feeding tube less than 14 Turk[place] (Dobhoff, J-tube etc) and pediatric and patients. Potassium 2019-10 No Notes: Memori a Chloride 0-06 (Same as: l 13:00: K-Dur 20) [place] 00 "Do Not Crush" Give with food and full glass of water For patients unable to swallow tablet, dissolve in one half glass of water. Allow about 2 minutes for the tablets to disintegra te. Stir before giving to prepare slurry and administer . Please exclude Patient s with feeding tube less than 14 Turk[place] (Dobhoff, J-tube etc) and pediatric and patients. Potassium 2019-10 No Notes: Memori a Chloride 0-06 (Same as: l 13:00: K-Dur 20) [place] 00 "Do Not Crush" Give with food and full glass of water For patients unable to swallow tablet, dissolve in one half glass of water. Allow about 2 minutes for the tablets to disintegra te. Stir before giving to prepare slurry and administer . Please exclude Patient s with feeding tube less than 14 Turk[place] (Dobhoff, J-tube etc) and pediatric and patients. Ceftriaxone 2019-10 No Notes: Kooj lynn 0-05 (Same As: l 23:00: Rocephin). [place] 00 Use with 100 mL NS and [...] 0-05 (Same as: l 12:44: K-Dur 20) [place] 00 "Do Not Crush" Give with food and full glass of water For patients unable to swallow tablet, dissolve in one half glass of water. Allow about 2 minutes for the tablets to disintegra te. Stir before giving to prepare slurry and administer . Please exclude Patient s with feeding tube less than 14 Turk[place] (Dobhoff, J-tube etc) and pediatric and patients. [...] s with feeding tube less than 14 Turk[place] (Dobhoff, J-tube etc) and pediatric and patients. Potassium 2019- No Notes: Memori a Chloride 0-05 (Same as: l 12:44: K-Dur 20) [place] 00 "Do Not Crush" Give with food and full glass of water For patients unable to swallow tablet, dissolve in one half glass of water. Allow about 2 minutes for the tablets to disintegra te. Stir before giving to prepare slurry and administer . Please exclude Patient s with feeding tube less than 14 Turk[place] (Dobhoff, J-tube etc) and pediatric and patients. Potassium 2019-10 No Notes: Memori a Chloride 0-05 (Same as: l 12:44: K-Dur 20) [place] 00 "Do Not Crush" Give with food and full glass of water For patients unable to swallow tablet, dissolve in one half glass of water. Allow about 2 minutes for the tablets to disintegra te. Stir before giving to prepare slurry and administer . Please exclude Patient s with feeding tube less than 14 Turk[place] (Dobhoff, J-tube etc) and pediatric and patients. [...] s with feeding tube less than 14 [place] (Dobhoff, J-tube etc) and pediatric and patients. Potassium 2019-10 No Notes: Memori a Chloride 0-04 (Same as: l 15:16: K-Dur 20) [place] 00 "Do Not Crush" Give with food and full glass of water For patients unable to swallow tablet, dissolve in one half glass of water. Allow about 2 minutes for the tablets to disintegra te. Stir before giving to prepare slurry and administer . Please exclude Patient s with feeding tube less than 14 Turk[place] (Dobhoff, J-tube etc) and pediatric and patients. Potassium 2019-10 No Notes: Memori a Chloride 0-04 (Same as: l 15:16: K-Dur 20) [place] 00 "Do Not Crush" Give with food and full glass of water For patients unable to swallow tablet, dissolve in one half glass of water. Allow about 2 minutes for the tablets to disintegra te. Stir before giving to prepare slurry and administer . Please exclude Patient s with feeding tube less than 14 Turk[place] (Dobhoff, J-tube etc) and pediatric and patients. Potassium 2019-10 No Notes: Memori a Chloride 0-04 (Same as: l 15:16: K-Dur 20) [place] 00 "Do Not Crush" Give with food and full glass of water For patients unable to swallow tablet, dissolve in one half glass of water. Allow about 2 minutes for the tablets to disintegra te. Stir before giving to prepare slurry and administer . Please exclude Patient s with feeding tube less than 14 Turk[place] (Dobhoff, J-tube etc) and pediatric and patients. Flagyl 2019-10 No Notes: Memoria 0-03 (Same as: l 23:00: Flagyl) [place] 00 Avoid alcohol. Flagyl 2019-10 No Notes: Memoria 0-03 (Same as: l 23:00: Flagyl) [place] 00 Avoid alcohol. Flagyl 2019-10 No Notes: Memoria 0-03 (Same as: l 23:00: Flagyl) [place] 00 Avoid alcohol. Flagyl 2019-10 No Notes: Memoria 0-03 (Same as: l 23:00: Flagyl) [place] 00 Avoid alcohol. Potassium 2019-10 No Notes: Memori a Chloride 0-03 (Same as: l 16:13: K-Dur 20) [place] 00 "Do Not Crush" Give with food and full glass of water For patients unable to swallow tablet, dissolve in one half glass of water. Allow about 2 minutes for the tablets to disintegra te. Stir before giving to prepare slurry and administer . Please exclude Patient s with feeding tube less than 14 Turk[place] (Dobhoff, J-tube etc) and pediatric and patients. Potassium 2019-10 No Notes: Memori a Chloride 0-03 (Same as: l 16:13: K-Dur 20) [place] 00 "Do Not Crush" Give with food and full glass of water For patients unable to swallow tablet, dissolve in one half glass of water. Allow about 2 minutes for the tablets to disintegra te. Stir before giving to prepare slurry and administer . Please exclude Patient s with feeding tube less than 14 Turk[place] (Dobhoff, J-tube etc) and pediatric and patients. Potassium 2019-10 No Notes: Memori a Chloride 0-03 (Same as: l 16:13: K-Dur 20) [place] 00 "Do Not Crush" Give with food and full glass of water For patients unable to swallow tablet, dissolve in one half glass of water. Allow about 2 minutes for the tablets to disintegra te. Stir before giving to prepare slurry and administer . Please exclude Patient s with feeding tube less than 14 [place] (Dobhoff, J-tube etc) and pediatric and patients. [...] s with feeding tube less than 14 [place] (Dobhoff, J-tube etc) and pediatric and patients. [...] Memoria 0-01 (Same as: l 19:33: Zofran) [place] 00 Zofran 2019-10 No Notes: Memoria 0-01 (Same as: l 19:33: Zofran) [place] 00 Zofran 2019-10 No Notes: Memoria 0-01 (Same as: l 19:33: Zofran) [place] 00 Zofran 2019-10 No Notes: Memoria 0-01 [...] e. Expires in days from ____Date Dextrose 2020-1 No 12.5 gm, Memor ia 50% Syringe 0-01 25 mL, l (D50W) 19:27: Route: [place] 00 IVP, Drug Form: INJ, Dosing Weight [...] Lispro 0-01 (Same as: l 19:27: Humalog) [place] 00 Roll in palms of hands gently; Do not shake vigorously . WASTE: F/P - Black; E - Municipal Trash Bin Stable for 28 days at room temperatur e. Expires in days from ____Date Dextrose 2020-1 No 12.5 gm, Memor ia 50% Syringe 0-01 25 mL, l (D50W) 19:27: Route: [place] 00 IVP, Drug Form: INJ, Dosing Weight 105, kg, PRN, PRN Blood Glucose Results, Start date: 07/09/20 14:27:00 CDT, Duration: 30 day, Stop date: 08/08/20 14:26:00 CDT, 0 Glucagon 2019-1 No 1 mg, Memoria 0-01 Route: IM, l 19:27: Drug form: [place] 00 PDR/INJ, PRN, Dosing Weight 105, kg, PRN Blood Glucose Results, Start date: 07/09/20 14:27:00 CDT, Duration: 30 day, Stop date: 08/08/20 14:26:00 CDT, 0 Insulin 2020-1 No Notes: Memoria Lispro 0-01 (Same as: l 19:27: Humalog) [place] 00 Roll in palms of hands gently; [...] 0-01 Route: IM, l 19:27: Drug form: [place] 00 PDR/INJ, PRN, Dosing Weight 105, kg, [...] s with feeding tube less than 14 [place] (Dobhoff, J-tube etc) and pediatric and patients. Potassium 2019-10 No Notes: Memori a Chloride 0-01 (Same as: l 15:51: K-Dur 20) [place] 00 "Do Not Crush" Give with food and full glass of water For patients unable to swallow tablet, dissolve in one half glass of water. Allow about 2 minutes for the tablets to disintegra te. Stir before giving to prepare slurry and administer . Please exclude Patient s with feeding tube less than 14 [place] (Dobhoff, J-tube etc) and pediatric and patients. Potassium 2019-10 No Notes: Memori a Chloride 0-01 (Same as: l 15:51: K-Dur 20) [place] 00 "Do Not Crush" Give with food and full glass of water For patients unable to swallow tablet, dissolve in one half glass of water. Allow about 2 minutes for the tablets to disintegra te. Stir before giving to prepare slurry and administer . Please exclude Patient s with feeding tube less than 14 [place] (Dobhoff, J-tube etc) and pediatric and patients. [...] s with feeding tube less than 14 [place] (Dobhoff, J-tube etc) and pediatric and patients. [...] 9-30 (Same as: l 13:16: K-Dur 20) [place] 00 "Do Not Crush" Give with food and full glass of water For patients unable to swallow tablet, dissolve in one half glass of water. Allow about 2 minutes for the tablets to disintegra te. Stir before giving to prepare slurry and administer . Please exclude Patient s with feeding tube less than 14 [place] (Dobhoff, J-tube etc) and pediatric and patients. [...] s with feeding tube less than 14 [place] (Dobhoff, J-tube etc) and pediatric and patients. Potassium 2020-0 No Notes: Memori a Chloride 9-30 (Same as: l 13:16: K-Dur 20) [place] 00 "Do Not Crush" Give with food and full glass of water For patients unable to swallow tablet, dissolve in one half glass of water. Allow about 2 minutes for the tablets to disintegra te. Stir before giving to prepare slurry and administer . Please exclude Patient s with feeding tube less than 14 [place] (Dobhoff, J-tube etc) and pediatric and patients. Potassium 2020-0 No Notes: Memori a Chloride 9-30 (Same as: l 13:16: K-Dur 20) [place] 00 "Do Not Crush" Give with food and full glass of water For patients unable to swallow tablet, dissolve in one half glass of water. Allow about 2 minutes for the tablets to disintegra te. Stir before giving to prepare slurry and administer . Please exclude Patient s with feeding tube less than 14 [place] (Dobhoff, J-tube etc) and pediatric and patients. Tylenol 2020-0 No Notes: Do Memor ia - not exceed l 15:39: 4 gm/day. [place] 00 (Same as: Tylenol) Tylenol 2020-0 No Notes: Do Memor ia - not exceed l 15:39: 4 gm/day. [place] (Same as: Tylenol) Tylenol 2020-0 No Notes: Do Memor ia 07-07 not exceed l 15:39: 4 gm/day. [place] 00 (Same as: Tylenol) Tylenol No Notes: Do Memor ia 07-07 not exceed l 15:39: 4 gm/day. [place] 00 (Same as: Tylenol) Roxicodone No Notes: Memor ia 07-07 (Same as: l 15:38: Roxicodone ) Roxicodone 0 No Notes: Memor ia 07-07 (Same as: l 15:38: Roxicodone ) Roxicodone 0 No Notes: Memor ia 07-07 (Same as: l 15:38: Roxicodone ) Roxicodone No Notes: Memor ia 07-07 (Same [...] CDT Hydralazine 2019- No Notes: Kojo lynn - (Same as: l 15:31: Apresoline [place] 00 ) May interfere w/enteral feedings. Take With Food Hydralazine 2019-0 No Notes: Kojo lynn - (Same as: l 15:31: Apresoline [place] 00 ) May interfere w/enteral feedings. Take With Food Hydralazine 2019-0 No Notes: Kojo lynn - (Same as: l 15:31: Apresoline [place] 00 ) May interfere w/enteral feedings. Take With Food Hydralazine 2019-0 No Notes: Kojo lynn -29 (Same as: l 15:31: Apresoline [place] 00 ) May interfere w/enteral feedings. Take With Food Miralax 2019-0 No Notes: Memoria 07-07 Dissolve l 14:00: in 8 oz of [place] 00 water or juice. (Same as: Miralax) cefepime 0 No Notes: Memoria 07-07 (Same As: l 14:00: Maxipime) MEDICATION WASTE Product Size: 1000 mg Product Wasted: ___ mg Amlodipine 2019-0 No Notes: Memor ia 07-07 (Same as: l 14:00: Norvasc) enalapril 2019-0 No Notes: Memori a 07-07 (Same as: l 14:00: Vasotec) Miralax 2019-0 No Notes: Memoria - Dissolve l 14:00: in 8 oz of [place] 00 water or juice. (Same as: Miralax) cefepime 2019-0 No Notes: Memoria 07-07 (Same As: l 14:00: Maxipime) MEDICATION WASTE Product Size: 1000 mg Product Wasted: ___ mg Amlodipine 2019-0 No Notes: Memor ia 07-07 (Same as: l 14:00: Norvasc) enalapril 2019-0 No Notes: Memori a 07-07 (Same as: l 14:00: Vasotec) Miralax 2019-0 No Notes: Memoria - Dissolve [...] 14:00: Vasotec) Miralax 2019-0 No Notes: Memoria - Dissolve l 14:00: in 8 oz of [place] 00 water or juice. (Same as: Miralax) cefepime 2019-0 No Notes: Memoria 07-07 (Same As: l [...] s with feeding tube less than 14 [place] (Dobhoff, J-tube etc) and pediatric and patients. Potassium 2020-0 No Notes: Memori a Chloride 9- (Same as: l : K-Dur ) [place] 00 "Do Not Crush" Give with food and full glass of water For patients unable to swallow tablet, dissolve in one half glass of water. Allow about 2 minutes for the tablets to disintegra te. Stir before giving to prepare slurry and administer . Please exclude Patient s with feeding tube less than 14 [place] (Dobhoff, J-tube etc) and pediatric and patients. Potassium 2020-0 No Notes: Memori a Chloride 9- (Same as: l : K-Dur ) [place] 00 "Do Not Crush" Give with food and full glass of water For patients unable to swallow tablet, dissolve in one half glass of water. Allow about 2 minutes for the tablets to disintegra te. Stir before giving to prepare slurry and administer . Please exclude Patient s with feeding tube less than 14 [place] (Dobhoff, J-tube etc) and pediatric and patients. Potassium 2020-0 No Notes: Memori a Chloride - (Same as: l : K-Dur ) [place] 00 "Do Not Crush" Give with food and full glass of water For patients unable to swallow tablet, dissolve in one half glass of water. Allow about 2 minutes for the tablets to disintegra te. Stir before giving to prepare slurry and administer . Please exclude Patient s with feeding tube less than 14 Turkmen (Dobhoff, J-tube etc) and pediatric and patients. Epogen 0 No Notes: 07-07 Same as: l 13:: Retacrit) [place] 00 epoetin franca-epbx 69444 unit/1 ml VL. WASTE: F/P - Red; E Red MEDICATION WASTE Product Size: 00357 unit Product Wasted: ___ unit Epogen 2020-0 No Notes: 07-07 Same as: l 13:08: Retacrit) [place] 00 epoetin franca-epbx 81705 unit/1 ml VL. WASTE: F/P - Red; E Red MEDICATION WASTE Product Size: 59188 unit Product Wasted: ___ unit Epogen 2020-0 No Notes: Memoria 07-07 Same as: l 13:08: Retacrit) [place] 00 epoetin franca-epbx 54880 unit/1 ml VL. WASTE: F/P - Red; E Red MEDICATION WASTE Product Size: 98825 unit Product Wasted: ___ unit Epogen 2020-0 No Notes: Memoria 07-07 Same as: l 13:08: Retacrit) [place] 00 epoetin franca-epbx 69214 unit/1 ml VL. WASTE: F/P - Red; E Red MEDICATION WASTE Product Size: 59868 unit Product Wasted: ___ unit potassium 2020-0 [...] s with feeding tube less than 14 Turkmen (Dobhoff, J-tube etc) and pediatric and patients. [...] s with feeding tube less than 14 Turkmen (Dobhoff, J-tube etc) and pediatric and patients. potassium 2020-0 No Notes: Memori a chloride 20 - (Same as: l mEq oral 10:45: K-Dur [...] s with feeding tube less than 14 Turkmen (Dobhoff, J-tube etc) and pediatric and patients. [...] s with feeding tube less than 14 Turkmen (Dobhoff, J-tube etc) and pediatric and patients. [...] ia 07-07 (Same As: l 02:00: Flomax) [place] 00 "Do Not Crush" carvedilol 2020-0 No [...] sodium, 07-06 porcine l porcine 21:00: heparin [place] 2500 UNT/ML 00 Injectable Solution Hydralazine 0 No Notes: Kojo lynn Hydrochlori 07-06 (Same as: l de 25 MG 21:00: Apresoline Her meeks Oral Tablet 00 ) May interfere w/enteral feedings Take With Food heparin 2020-0 No Notes: Memoria sodium, 07-06 porcine l porcine 21:00: heparin [place] 2500 UNT/ML 00 Injectable Solution Hydralazine 2019-0 No Notes: Kojo lynn Hydrochlori 07-06 (Same as: l de 25 MG 21:00: Apresoline Her meeks Oral Tablet 00 ) May interfere w/enteral feedings Take With Food heparin 2020-0 No Notes: Memoria sodium, 07-06 porcine l porcine 21:00: heparin [place] 2500 UNT/ML 00 Injectable Solution Hydralazine 2019-0 No Notes: Kojo lynn Hydrochlori 07-06 (Same as: l de 25 MG 21:00: Apresoline Her meeks Oral Tablet 00 ) May interfere w/enteral feedings Take With Food heparin 2020-0 No Notes: Memoria sodium, 07-06 porcine l porcine 21:00: heparin [place] 2500 UNT/ML 00 Injectable Solution Hydralazine 2019-0 No Notes: Kojo lynn Hydrochlori 07-06 (Same as: l de 25 MG 21:00: Apresoline Her meeks Oral Tablet 00 ) May interfere w/enteral feedings Take With Food Amlodipine 2019-0 No 1 cap, Memor ia 10 MG / 07-06 Route: PO, l Benazepril 18:00: Drug Form: H ermann hydrochlori 00 CAP, de 20 MG Dosing Oral Weight Capsule 105, kg, TID, Start date: 07/06/20 13:00:00 CDT, Duration: 30 day, Stop date: 08/05/20 9:00:00 CDT calcium 2020-0 No Notes: Memoria acetate 667 9- Same as l MG Oral 18:00: Phoslo Gel Herm dionne Capsule 00 Cap Hydroxyzine 2020-0 No Notes: Kojo lynn Hydrochlori 9-28 (Same as: l de 25 MG 18:00: Atarax) Rafael n Oral Tablet 00 Avoid alcohol. Vancomycin 2020-0 No 2000 mg: Me moria 07-06 infuse l 18:00: over 2.5 [place] 00 hours For adult patients only: Round [...] Gel Herm dionne Capsule 00 Cap Hydroxyzine 2020-0 No Notes: Kojo lynn Hydrochlori - (Same as: l de 25 MG 18:00: Atarax) [place] n Oral Tablet 00 Avoid alcohol. Vancomycin 2020-0 No 2000 mg: Me moria 28 infuse l 18:00: over 2.5 [place] 00 [...] moria 07-06 infuse l 18:00: over 2.5 [place] 00 hours For adult patients only: Round [...] Memoria 07-06 (Same as: l 17:42: Valium) [place] acetaminoph 0 No Notes: Do M emoria en-codeine 07-06 not exceed l #3 17:42: 4gm/day of [place] 00 acetaminop hen. (Same as: Tylenol with Codeine # 3) Diazepam No Notes: Memoria 9-28 (Same as: l 17:42: Valium) [place] acetaminoph No Notes: Do M emoria en-codeine 07-06 not exceed l #3 17:42: 4gm/day of [place] 00 acetaminop hen. (Same as: Tylenol with Codeine # 3) Diazepam No Notes: Memoria 9-28 (Same as: l 17:42: Valium) [place] 00 acetaminoph No Notes: Do M emoria en-codeine 07-06 not exceed l #3 17:42: 4gm/day of [place] acetaminop hen. (Same as: Tylenol with Codeine # 3) Diazepam No Notes: Memoria 9- (Same as: l 17:42: Valium) potassium No Notes: Memori a chloride 9- (Same as: l 16:00: Potassium [place] 00 Chloride) potassium No Notes: Memori a chloride 9-28 (Same as: l 16:00: Potassium [place] 00 Chloride) potassium No Notes: Memori a chloride 9- (Same as: l 16:00: Potassium [place] 00 Chloride) potassium No Notes: Memori a chloride 9-28 (Same as: l 16:00: Potassium [place] 00 Chloride) Hydromorpho No Notes: Kojo lynn ne 07-06 Same as: l 13:57: Dilaudid Acetaminoph No Notes: Do M emoria en 325 MG / 07-06 not exceed l Hydrocodone 13:57: 4gm/day of [place] Bitartrate 00 acetaminop 10 MG Oral hen. (Same Tablet as: Mcintosh [Mcintosh 325/10) 10/325] Hydromorpho No Notes: Kojo lynn ne 07-06 Same as: l 13:57: Dilaudid [place] Acetaminoph No Notes: Do M emoria en 325 MG / 07-06 not exceed l Hydrocodone 13:57: 4gm/day of [place] Bitartrate 00 acetaminop 10 MG Oral hen. (Same Tablet as: Mcintosh [Mcintosh 325/10) 10325] Hydromorpho 2020-0 No Notes: Kojo lynn ne 07-06 Same as: l 13:57: Dilaudid [place] 00 Acetaminoph 2019-0 No Notes: Do M emoria en 325 MG / 07-06 not exceed l Hydrocodone 13:57: 4gm/day of [place] Bitartrate 00 acetaminop 10 MG Oral hen. (Same Tablet as: Mcintosh [Mcintosh 325/10) 10325] Hydromorpho 2020-0 No Notes: Kojo lynn ne 07-06 Same as: l 13:57: Dilaudid [place] 00 Acetaminoph 2019-0 No Notes: Do M emoria en 325 MG / 07-06 not exceed l Hydrocodone 13:57: 4gm/day of [place] Bitartrate 00 acetaminop 10 MG Oral hen. (Same Tablet as: Mcintosh [Mcintosh 325/10) 10325] Potassium 2020-0 No 60 mEq, [...] ne 07-06 Route: l 12:40: IVP, ONCE, [place] Dosing Weight 105, kg, Priority: STAT, Start date: 07/06/20 7:40:00 CDT, Stop date: 07/06/20 7:40:00 CDT Hydromorpho 2020-0 No 1 mg, Memor ia ne 07-06 Route: l 12:40: IVP, ONCE, [place] Dosing Weight 105, kg, Priority: STAT, Start date: 07/06/20 7:40:00 CDT, Stop date: 07/06/20 7:40:00 CDT Hydromorpho 2020-0 No 1 mg, Memor ia ne 07-06 Route: l 12:40: IVP, ONCE, [place] 00 Dosing Weight 105, kg, Priority: STAT, Start date: 07/06/20 7:40:00 CDT, Stop date: 07/06/20 7:40:00 CDT Hydromorpho 2020-0 No 1 mg, Memor ia ne 07-06 Route: l 12:40: IVP, ONCE, [place] 00 Dosing Weight 105, kg, Priority: STAT, Start date: 07/06/20 7:40:00 CDT, Stop date: 07/06/20 7:40:00 CDT Morphine 2020-0 No 6 mg, Memoria 07-06 Route: l 12:39: IVP, ONCE, [place] 00 Dosing Weight 105, kg, Priority: STAT, Start date: 07/06/20 7:39:00 CDT, Stop date: 07/06/20 7:39:00 CDT Morphine 2020-0 No 6 mg, Memoria 07-06 Route: l 12:39: IVP, ONCE, [place] 00 Dosing Weight 105, kg, Priority: STAT, Start date: 07/06/20 7:39:00 CDT, Stop date: 07/06/20 7:39:00 CDT Morphine 2020-0 No 6 mg, Memoria 9 Route: l 12:39: IVP, ONCE, [place] 00 Dosing Weight 105, kg, Priority: STAT, Start date: 07/06/20 7:39:00 CDT, Stop date: 07/06/20 7:39:00 CDT Morphine 2020-0 No 6 mg, 07-06 Route: l 12:39: IVP, ONCE, Dosing [...] moria 07-06 infuse l 11:04: over 2.5 [place] 00 hours For adult patients only: Round [...] Notes: Memoria 07-06 (Same l 10:32: as:MORPhin [place] 00 e Sulfate) furosemide 2019-0 Yes [id number] 80mg Take 1 U nivers (LASIX) 80 9-15 tablet by ity of mg tablet 00:00: mouth [place] 00 every Medical morning Branch and evening. tamsulosin 2020-0 Yes [id number] .4mg Take 1 U nivers 0.4 mg 24 9-15 capsule by ity of hr capsule 00:00: mouth [place] 00 daily. Medical Branch furosemide 2020-0 Yes [id number] 80mg Take 1 U nivers (LASIX) 80 9-15 tablet by ity of mg tablet 00:00: mouth [place] 00 every Medical morning Branch and evening. tamsulosin 2020-0 Yes [id number] .4mg Take 1 U nivers 0.4 mg 24 9-15 capsule by ity of hr capsule 00:00: mouth [place] 00 daily. Medical Branch furosemide 2020-0 Yes [id number] 80mg Take 1 U nivers (LASIX) 80 9-15 tablet by ity of mg tablet 00:00: mouth [place] 00 every Medical morning Branch and evening. tamsulosin 2020-0 Yes [id number] .4mg Take 1 U nivers 0.4 mg 24 9-15 capsule by ity of hr capsule 00:00: mouth [place] 00 daily. Medical Branch furosemide 2020-0 Yes [id number] 80mg Take 1 U nivers (LASIX) 80 9-15 tablet by ity of mg tablet 00:00: mouth [place] 00 every Medical morning Branch and evening. tamsulosin 2020-0 Yes [id number] .4mg Take 1 U nivers 0.4 mg 24 9-15 capsule by ity of hr capsule 00:00: mouth [place] 00 daily. Medical Branch furosemide 2020-0 Yes [id number] 80mg Take 1 U nivers (LASIX) 80 9-15 tablet by ity of mg tablet 00:00: mouth [place] 00 every Medical morning Branch and evening. tamsulosin 2020-0 Yes [id number] .4mg Take 1 U nivers 0.4 mg 24 9-15 capsule by ity of hr capsule 00:00: mouth [place] 00 daily. Medical Branch furosemide 2020-0 Yes [id number] 80mg Take 1 U nivers (LASIX) 80 9-15 tablet by ity of mg tablet 00:00: mouth [place] 00 every Medical morning Branch and evening. tamsulosin 2020-0 Yes [id number] .4mg Take 1 U nivers 0.4 mg 24 9-15 capsule by ity of hr capsule 00:00: mouth [place] 00 daily. Medical Branch furosemide 2020-0 Yes [id number] 80mg Take 1 U nivers (LASIX) 80 9-15 tablet by ity of mg tablet 00:00: mouth [place] 00 every Medical morning Branch and evening. tamsulosin 2020-0 Yes [id number] .4mg Take 1 U nivers 0.4 mg 24 9-15 capsule by ity of hr capsule 00:00: mouth [place] 00 daily. Medical Branch furosemide 2020-0 Yes [id number] 80mg Take 1 U nivers (LASIX) 80 9-15 tablet by ity of mg tablet 00:00: mouth [place] 00 every Medical morning Branch and evening. tamsulosin 2020-0 Yes [id number] .4mg Take 1 U nivers 0.4 mg 24 9-15 capsule by ity of hr capsule 00:00: mouth [place] 00 daily. Medical Branch furosemide 2020-0 Yes [id number] 80mg Take 1 U nivers (LASIX) 80 9-15 tablet by ity of mg tablet 00:00: mouth [place] 00 every Medical morning Branch and evening. tamsulosin 2020-0 Yes [id number] .4mg Take 1 U nivers 0.4 mg 24 9-15 capsule by ity of hr capsule 00:00: mouth [place] 00 daily. Medical Branch furosemide 2020-0 Yes [id number] 80mg Take 1 U nivers (LASIX) 80 9-15 tablet by ity of mg tablet 00:00: mouth [place] 00 every Medical morning Branch and evening. tamsulosin 2020-0 Yes [id number] .4mg Take 1 U nivers 0.4 mg 24 9-15 capsule by ity of hr capsule 00:00: mouth [place] 00 daily. Medical Branch furosemide 2020-0 Yes [id number] 80mg Take 1 U nivers (LASIX) 80 9-15 tablet by ity of mg tablet 00:00: mouth [place] 00 every Medical morning Branch and evening. tamsulosin 2020-0 Yes [id number] .4mg Take 1 U nivers 0.4 mg 24 9-15 capsule by ity of hr capsule 00:00: mouth [place] 00 daily. Medical Branch furosemide 2020-0 Yes [id number] 80mg Take 1 U nivers (LASIX) 80 9-15 tablet by ity of mg tablet 00:00: mouth [place] 00 every Medical morning Branch and evening. tamsulosin 2020-0 Yes [id number] .4mg Take 1 U nivers 0.4 mg 24 9-15 capsule by ity of hr capsule 00:00: mouth [place] 00 daily. Medical Branch furosemide 2020-0 Yes [id number] 80mg Take 1 U nivers (LASIX) 80 9-15 tablet by ity of mg tablet 00:00: mouth [place] 00 every Medical morning Branch and evening. tamsulosin 2020-0 Yes [id number] .4mg Take 1 U nivers 0.4 mg 24 9-15 capsule by ity of hr capsule 00:00: mouth [place] 00 daily. Medical Branch furosemide 2020-0 Yes [id number] 80mg Take 1 U nivers (LASIX) 80 9-15 tablet by ity of mg tablet 00:00: mouth [place] 00 every Medical morning Branch and evening. tamsulosin 2020-0 Yes [id number] .4mg Take 1 U nivers 0.4 mg 24 9-15 capsule by ity of hr capsule 00:00: mouth [place] 00 daily. Medical Branch furosemide 2020-0 Yes [id number] 80mg Take 1 U nivers (LASIX) 80 9-15 tablet by ity of mg tablet 00:00: mouth [place] 00 every Medical morning Branch and evening. tamsulosin 2020-0 Yes [id number] .4mg Take 1 U nivers 0.4 mg 24 9-15 capsule by ity of hr capsule 00:00: mouth [place] 00 daily. Medical Branch furosemide 2020-0 Yes [id number] 80mg Take 1 U nivers (LASIX) 80 9-15 tablet by ity of mg tablet 00:00: mouth [place] 00 every Medical morning Branch and evening. tamsulosin 2020-0 Yes [id number] .4mg Take 1 U nivers 0.4 mg 24 9-15 capsule by ity of hr capsule 00:00: mouth [place] 00 daily. Medical Branch furosemide 2020-0 Yes [id number] 80mg Take 1 U nivers (LASIX) 80 9-15 tablet by ity of mg tablet 00:00: mouth [place] 00 every Medical morning Branch and evening. tamsulosin 2020-0 Yes [id number] .4mg Take 1 U nivers 0.4 mg 24 9-15 capsule by ity of hr capsule 00:00: mouth [place] 00 daily. Medical Branch furosemide 2020-0 Yes [id number] 80mg Take 1 U nivers (LASIX) 80 9-15 tablet by ity of mg tablet 00:00: mouth [place] 00 every Medical morning Branch and evening. tamsulosin 2020-0 Yes [id number] .4mg Take 1 U nivers 0.4 mg [...] Do M emoria en 300 MG / 813 not exceed l Codeine 14:43: 4gm/day of [...] Dissolve l 13:33: in 8 oz of [place] 00 water or juice. (Same as: Miralax) Miralax 2020-0 No Notes: Memoria 8-13 Dissolve l 13:33: in 8 oz of [place] 00 water or juice. (Same as: Miralax) Miralax 2020-0 No Notes: Memoria 8-13 Dissolve l 13:33: in 8 oz of [place] 00 water or juice. (Same as: Miralax) Miralax 2020-0 No Notes: Memoria 8-13 Dissolve l 13:33: in 8 oz of [place] 00 water or juice. (Same as: Miralax) calcium 2020-0 Yes [id number] 1334mg Take 2 Un seun acetate 667 6-22 capsules ity of mg capsule 00:00: by mouth 3 [place] 00 (three) Medical times Branch daily with meals. calcium 2020-0 Yes [id number] 1334mg Take 2 Un seun acetate 667 6-22 capsules ity of mg capsule 00:00: by mouth 3 [place] 00 (three) Medical times Branch daily with meals. calcium 2020-0 Yes [id number] 1334mg Take 2 Un esun acetate 667 6-22 capsules ity of mg capsule 00:00: by mouth 3 [place] 00 (three) Medical times Branch daily with meals. calcium 2020-0 Yes [id number] 1334mg Take 2 Un seun acetate 667 6-22 capsules ity of mg capsule 00:00: by mouth 3 [place] 00 (three) Medical times Branch daily with meals. calcium 2020-0 Yes [id number] 1334mg Take 2 Un seun acetate 667 6-22 capsules ity of mg capsule 00:00: by mouth 3 [place] 00 (three) Medical times Branch daily with meals. calcium 2020-0 Yes [id number] 1334mg Take 2 Un seun acetate 667 6-22 capsules ity of mg capsule 00:00: by mouth 3 [place] 00 (three) Medical times Branch daily with meals. calcium 2020-0 Yes [id number] 1334mg Take 2 Un seun acetate 667 6-22 capsules ity of mg capsule 00:00: by mouth 3 [place] 00 (three) Medical times Branch daily with meals. calcium 2020-0 Yes [id number] 1334mg Take 2 Un seun acetate 667 6-22 capsules ity of mg capsule 00:00: by mouth 3 [place] 00 (three) Medical times Branch daily with meals. calcium 2020-0 Yes [id number] 1334mg Take 2 Un seun acetate 667 6-22 capsules ity of mg capsule 00:00: by mouth 3 [place] 00 (three) Medical times Branch daily with meals. calcium 2020-0 Yes [id number] 1334mg Take 2 Un seun acetate 667 6-22 capsules ity of mg capsule 00:00: by mouth 3 [place] 00 (three) Medical times Branch daily with meals. calcium 2020-0 Yes [id number] 1334mg Take 2 Un seun acetate 667 6-22 capsules ity of mg capsule 00:00: by mouth 3 [place] 00 (three) Medical times Branch daily with meals. calcium 2020-0 Yes [id number] 1334mg Take 2 Un seun acetate 667 6-22 capsules ity of mg capsule 00:00: by mouth 3 [place] 00 (three) Medical times Branch daily with meals. calcium 2020-0 Yes [id number] 1334mg Take 2 Un seun acetate 667 6-22 capsules ity of mg capsule 00:00: by mouth 3 [place] 00 (three) Medical times Branch daily with meals. calcium 2020-0 Yes [id number] 1334mg Take 2 Un seun acetate 667 6-22 capsules ity of mg capsule 00:00: by mouth 3 [place] 00 (three) Medical times Branch daily with meals. calcium 2020-0 Yes [id number] 1334mg Take 2 Un seun acetate 667 6-22 capsules ity of mg capsule 00:00: by mouth 3 [place] 00 (three) Medical times Branch daily with meals. calcium 2020-0 Yes [id number] 1334mg Take 2 Un seun acetate 667 6-22 capsules ity of mg capsule 00:00: by mouth 3 [place] 00 (three) Medical times Branch daily with meals. calcium 2020-0 Yes [id number] 1334mg Take 2 Un seun acetate 667 6-22 capsules ity of mg capsule 00:00: by mouth 3 [place] 00 (three) Medical times Branch daily with meals. calcium 2020-0 Yes [id number] 1334mg Take 2 Un seun acetate 667 [...] Memoria 6-15 Route: l 13:48: IVP, ONCE, [place] 00 Dosing Weight 104, kg, Priority: STAT, Start date: 03/23/20 8:48:00 CDT, Stop date: 03/23/20 8:48:00 CDT Zofran 2020-0 No 4 mg, Memoria 6-15 Route: l 13:48: IVP, Drug [place] form: INJ, ONCE, Dosing Weight 104, kg, Priority: STAT, Start date: 03/23/20 8:48:00 CDT, Stop date: 03/23/20 8:48:00 CDT Morphine 2020-0 No 4 mg, Memoria 6-15 Route: l 13:48: IVP, ONCE, [place] Dosing Weight 104, kg, Priority: STAT, Start [...] Route: PO, l Hydrocodone 10:53: Drug Form: [place] Bitartrate 00 TAB, 5 MG Oral Dosing Tablet Weight [Mcintosh 104, kg, 5/325] ONCE, STAT, Start date: 03/23/20 5:53:00 CDT, Stop date: 03/23/20 5:53:00 CDT Acetaminoph 2019-0 No 1 tab, Kojo lynn en 325 MG / 15 Route: PO, l Hydrocodone 10:53: Drug Form: [place] Bitartrate 00 TAB, 5 MG Oral Dosing Tablet Weight [Mcintosh 104, kg, 5/325] ONCE, STAT, Start date: 03/23/20 5:53:00 CDT, Stop date: 03/23/20 5:53:00 CDT Acetaminoph 0 No 1 tab, Kojo lynn en 325 MG / 15 Route: PO, l Hydrocodone 10:53: Drug Form: [place] Bitartrate 00 TAB, 5 MG Oral Dosing Tablet Weight [Mcintosh 104, kg, 5/325] ONCE, STAT, Start date: 03/23/20 5:53:00 CDT, Stop date: 03/23/20 5:53:00 CDT Acetaminoph 0 No 1 tab, Kojo lynn en 325 MG / 15 Route: PO, l Hydrocodone 10:53: Drug Form: [place] Bitartrate 00 TAB, 5 MG Oral Dosing Tablet Weight [Mcintosh 104, kg, 5/325] ONCE, STAT, Start date: 03/23/20 5:53:00 CDT, Stop date: 03/23/20 5:53:00 CDT Acetaminoph No Notes: Do M emoria en 325 MG / 15 not exceed l Hydrocodone 09:02: 4gm/day of [place] Bitartrate 00 acetaminop 10 MG Oral hen. (Same Tablet as: Mcintosh [Mcintosh 325/10) 10325] Acetaminoph No Notes: Do M emoria en 325 MG / 15 not exceed l Hydrocodone 09:02: 4gm/day of [place] Bitartrate 00 acetaminop 10 MG Oral hen. (Same Tablet as: Mcintosh [Mcintosh 325/10) 10325] Acetaminoph No Notes: Do M emoria en 325 MG / 15 not exceed l Hydrocodone 09:02: 4gm/day of [place] Bitartrate 00 acetaminop 10 MG Oral hen. (Same Tablet as: Mcintosh [Mcintosh 325/10) 10325] Acetaminoph 2020-0 No Notes: Do M emoria en 325 MG / 6-15 not exceed l Hydrocodone 09:02: 4gm/day of [place] Bitartrate 00 acetaminop 10 MG Oral hen. (Same Tablet as: Mcintosh [Mcintosh 325) ] Sodium 2020-0 No 250 mL, Memoria Chloride [...] Rate: To l 0.9% 06:23: prime line [place] (titrate) 00 and flush 250 mL remaining [...] Rate: To l 0.9% 06:23: prime line [place] (titrate) 00 and flush 250 mL remaining [...] 4- Same as: l 22:39: Dilaudid [place] Dilaudid 2020-0 No Notes: Memoria 4- Same as: l 22:39: Dilaudid [place] 00 Dilaudid 2020-0 No Notes: Memoria 4- Same as: l 22:39: Dilaudid [place] 00 Dilaudid 2020-0 No Notes: Memoria 4- Same as: l 22:39: Dilaudid [place] 00 Hydralazine 2020-0 No 50 mg, 1 [...] 17:20:00 CDT Zofran 2020-0 No Notes: Memoria 02-02 (Same as: l [...] ___ mg Morphine 2019-0 No Notes: Memoria - (Same l 20:18: as:MORPhin [place] 00 e Sulfate) Morphine 2019-0 No Notes: Memoria - (Same l 20:18: as:MORPhin [place] 00 e Sulfate) Morphine 2019-0 No Notes: Memoria - (Same l 20:18: as:MORPhin [place] 00 e Sulfate) Morphine No Notes: Memoria 02-02 (Same l 20:18: as:MORPhin [place] 00 e Sulfate) Acetaminoph Yes 1-2 tab, Me moria en 325 MG / -28 PO, Q4-6H, l Hydrocodone 20:46: PRN Pain, H ermann Bitartrate 00 X 5 day, # 10 MG Oral 20 tab, 0 Tablet Refill(s), [[facility]: ] [facility] Acetaminoph Yes 1-2 tab, Me moria en 325 MG / -28 PO, Q4-6H, l Hydrocodone 20:46: PRN Pain, H ermann Bitartrate 00 X 5 day, # 10 MG Oral 20 tab, 0 Tablet Refill(s), [[facility]: ] [facility] Acetaminoph Yes 1-2 tab, Me moria en 325 MG / -28 PO, Q4-6H, l Hydrocodone 20:46: PRN Pain, H ermann Bitartrate 00 X 5 day, # 10 MG Oral 20 tab, 0 Tablet Refill(s), [[facility]: ] [facility] Acetaminoph Yes 1-2 tab, Me moria en 325 MG / -28 PO, Q4-6H, l Hydrocodone 20:46: PRN Pain, H ermann Bitartrate 00 X 5 day, # 10 MG Oral 20 tab, 0 Tablet Refill(s), [[facility]: ] [facility] vancomycin No 2001 mg: Me moria 11-04 infuse l 19:00: over 2.5 [place] 00 hours For adult patients only: Round to nearest 250 mg per Medical Staff approval MEDICATION WASTE Product Size: 1000 mg Product Wasted: ___ mg Amlodipine No 1 cap Memor ia 10 MG / 11-04 Route: PO, l Benazepril 19:00: Drug Form: H ermann hydrochlori 00 CAP, de 20 MG Dosing Oral Weight Capsule 99.091, kg, TID, Start date: 11/04/19 13:00:00 GAS BRAZER, Duration: 30 day, Stop date: 12/04/19 9:00:00 GAS BRAZER amLODIPine 2020-0 No Notes: Memor ia - (Same as: l 19:00: Norvasc) [place] lisinopril 2020-0 No Notes: Memor ia 11-04 (Same as: l 19:00: Prinivil, [place] 00 Zestril) vancomycin 2020-0 No 2000 mg: Me moria 1-27 infuse l 19:00: over 2.5 [place] 00 [...] 99.091, kg, TID, Start date: 11/04/19 13:00:00 GAS BRAZER, Duration: 30 day, Stop date: 12/04/19 9:00:00 GAS BRAZER amLODIPine 2020-0 No Notes: Memor ia - (Same as: l 19:00: Norvasc) [place] lisinopril 2020-0 No Notes: Memor ia - (Same as: l 19:00: Prinivil, [place] 00 Zestril) vancomycin 2020-0 No 2000 mg: [...] 99.091, kg, TID, Start date: 11/04/19 13:00:00 GAS BRAZER, Duration: 30 day, Stop date: 12/04/19 9:00:00 GAS BRAZER amLODIPine 2020-0 No Notes: Memor ia - (Same as: l 19:00: Norvasc) [place] 00 lisinopril 2020-0 No Notes: Memor ia 11-04 (Same as: l 19:00: Prinivil, [place] 00 Zestril) vancomycin No 2001 mg: Me moria 11-04 infuse l 19:00: over 2.5 [place] 00 hours For adult patients only: Round to nearest 250 mg per Medical Staff approval MEDICATION WASTE Product Size: 1000 mg Product Wasted: ___ mg Amlodipine 2019-0 No 1 cap, Memor ia 10 MG / 11-04 Route: PO, l Benazepril 19:00: Drug Form: H ermann hydrochlori 00 CAP, de 20 MG Dosing Oral Weight Capsule 99.091, kg, TID, Start date: 11/04/19 13:00:00 GAS BRAZER, Duration: 30 day, Stop date: 12/04/19 9:00:00 GAS BRAZER amLODIPine No Notes: Memor ia 11-04 (Same [...] s with feeding tube less than 14 [place] (Dobhoff, J-tube etc) and pediatric and patients. Potassium 2020-0 No Notes: Memori a Chloride 1-27 (Same as: l 16:23: K-Dur 20) [place] 00 "Do Not Crush" Give with food and full glass of water For patients unable to swallow tablet, dissolve in one half glass of water. Allow about 2 minutes for the tablets to disintegra te. Stir before giving to prepare slurry and administer . Please exclude Patient s with feeding tube less than 14 [place] (Dobhoff, J-tube etc) and pediatric and patients. Potassium 2020-0 No Notes: Memori a Chloride 1-27 (Same as: l 16:23: K-Dur 20) [place] 00 "Do Not Crush" Give with food and full glass of water For patients unable to swallow tablet, dissolve in one half glass of water. Allow about 2 minutes for the tablets to disintegra te. Stir before giving to prepare slurry and administer . Please exclude Patient s with feeding tube less than 14 [place] (Dobhoff, J-tube etc) and pediatric and patients. Potassium 2020-0 No Notes: Memori a Chloride 1-27 (Same as: l 16:23: K-Dur 20) [place] 00 "Do Not Crush" Give with food and full glass of water For patients unable to swallow tablet, dissolve in one half glass of water. Allow about 2 minutes for the tablets to disintegra te. Stir before giving to prepare slurry and administer . Please exclude Patient s with feeding tube less than 14 Turk[place] (Dobhoff, J-tube etc) and pediatric and patients. epoetin 2019-0 No Notes: Memoria franca 1-27 (Same as: l 15:00: Procrit) [place] 00 epoetin [place] [id number] unit/1 ml VL. For dialysis use only. (Procrit) WASTE: F/P - Red; E -Red MEDICATION WASTE Product Size: 40441 unit Product Wasted: ___ unit epoetin 2019-0 No Notes: Memoria franca 1-27 (Same as: l 15:00: Procrit) [place] 00 epoetin [place] [id number] unit/1 ml VL. For dialysis use only. (Procrit) WASTE: F/P - Red; E -Red MEDICATION WASTE Product Size: 81626 unit Product Wasted: ___ unit epoetin 2020-0 No Notes: Memoria franca 11-04 (Same as: l 15:00: Procrit) [place] 00 epoetin [place] [id number] unit/1 ml VL. For dialysis use only. (Procrit) WASTE: F/P - Red; E -Red MEDICATION WASTE Product Size: 82813 unit Product Wasted: ___ unit epoetin 2020-0 No Notes: Memoria franca 11-04 (Same as: l 15:00: Procrit) [place] 00 epoetin franca 65844 unit/1 ml VL. For dialysis use only. (Procrit) WASTE: F/P - Red; E -Red MEDICATION WASTE Product Size: 37503 unit Product Wasted: ___ unit Lisinopril 2020-0 No Notes: Memor ia - (Same as: l 14:47: Prinivil, [place] 00 Zestril) Lisinopril 2020-0 No Notes: Memor ia - (Same as: l 14:47: Prinivil, [place] 00 Zestril) Lisinopril 2020-0 No Notes: Memor ia 11-04 (Same as: l 14:47: Prinivil, [place] 00 Zestril) Lisinopril 2020-0 No Notes: Memor ia - (Same as: l 14:47: Prinivil, [place] 00 Zestril) Vancomycin 2020-0 No 2000 mg: [...] 1000 mg Product Wasted: ___ mg Lasix 2019- No Notes: Memoria 1-26 (Same as: l 23:00: Lasix) [place] 00 May cause GI upset. Give with food or milk. Lasix No Notes: Memoria 1-26 (Same as: l 23:00: Lasix) May [place] 00 cause GI upset. Give with food or milk. Lasix No Notes: Memoria 1-26 (Same as: l 23:00: Lasix) May [place] 00 cause GI upset. Give with food or milk. Lasix No Notes: Memoria 1-26 (Same as: l 23:00: Lasix) May [place] 00 cause GI upset. Give with food [...] 11-03 (Same as: l 15:32: K-Dur 20) [place] 00 "Do Not Crush" Give with food and full glass of water For patients unable to swallow tablet, dissolve in one half glass of water. Allow about 2 minutes for the tablets to disintegra te. Stir before giving to prepare slurry and administer . Please exclude Patient s with feeding tube less than 14 Turkmen (Dobhoff, J-tube etc) and pediatric and patients. Epogen 2019-0 No Notes: Memoria 11-03 (Same as: l 15:32: Procrit) [place] 00 epoetin franca 51438 unit/1 ml VL. For dialysis use only. (Procrit) WASTE: F/P - Red; E -Red MEDICATION WASTE Product Size: 61742 unit Product Wasted: ___ unit Potassium 2020-0 No Notes: Memori a Chloride 11-03 (Same as: l 15:32: K-Dur 20) [place] 00 "Do Not Crush" Give with food and full glass of water For patients unable to swallow tablet, dissolve in one half glass of water. Allow about 2 minutes for the tablets to disintegra te. Stir before giving to prepare slurry and administer . Please exclude Patient s with feeding tube less than 14 Turk[place] (Dobhoff, J-tube etc) and pediatric and patients. Epogen 2019-0 No Notes: Memoria 11-03 (Same as: l 15:32: Procrit) [place] 00 epoetin [place] 66705 unit/1 ml VL. For dialysis use only. (Procrit) WASTE: F/P - Red; E -Red MEDICATION WASTE Product Size: 08574 unit Product Wasted: ___ unit Potassium 2020-0 No Notes: Memori a Chloride 11-03 (Same as: l 15:32: K-Dur 20) [place] 00 "Do Not Crush" Give with food and full glass of water For patients unable to swallow tablet, dissolve in one half glass of water. Allow about 2 minutes for the tablets to disintegra te. Stir before giving to prepare slurry and administer . Please exclude Patient s with feeding tube less than 14 Turkmen (Dobhoff, J-tube etc) and pediatric and patients. Epogen 0 No Notes: Memoria 11-03 (Same as: l 15:32: Procrit) [place] 00 epoetin [place] 97815 unit/1 ml VL. For dialysis use only. (Procrit) WASTE: F/P - Red; E -Red MEDICATION WASTE Product Size: 77535 unit Product Wasted: ___ unit Potassium 0 [...] s with feeding tube less than 14 Turkmen (Dobhoff, J-tube etc) and pediatric and patients. Epogen No Notes: Memoria 11-03 (Same as: l 15:32: Procrit) [place] 00 epoetin [place] 77649 unit/1 ml VL. For dialysis use only. (Procrit) WASTE: F/P - Red; E -Red MEDICATION WASTE Product Size: 89494 unit Product Wasted: ___ unit Dilaudid No Notes: Memoria 1-25 Same as: l 18:03: Dilaudid [place] Dilaudid 0 No Notes: Memoria 1-25 Same as: l 18:03: Dilaudid [place] 00 Dilaudid 0 No Notes: Memoria 1-25 Same as: l 18:03: Dilaudid [place] 00 Dilaudid 2019-0 No Notes: Memoria 1-25 Same as: l 18:03: Dilaudid [place] heparin 2019-0 No 10,000 Memoria 1-25 unit, 10 l 02:00: mL, Route: DIALYSIS, Drug form: INJ, ONCALL, Dosing Weight 99.091, kg, Start date: 11/01/19 20:00:00 GAS BRAZER, Duration: 1 doses or times, 0 heparin 2019-0 No 10,000 Memoria 1-25 unit, 10 l 02:00: mL, Route: DIALYSIS, Drug form: INJ, ONCALL, Dosing Weight 99.091, kg, Start date: 11/01/19 20:00:00 GAS BRAZER, Duration: 1 doses or times, 0 heparin 2020-0 No 10,000 Memoria 1-25 unit, 10 l 02:00: mL, Route: [place] 00 DIALYSIS, Drug form: INJ, ONCALL, Dosing Weight 99.091, kg, Start date: 11/01/19 20:00:00 GAS BRAZER, Duration: 1 doses or times, 0 heparin 2019-0 No 10,000 Memoria 1-25 unit, 10 l 02:00: mL, Route: [place] 00 DIALYSIS, Drug form: INJ, ONCALL, Dosing Weight 99.091, kg, Start date: 11/01/19 20:00:00 GAS BRAZER, Duration: 1 doses or times, 0 vancomycin 2019- No Notes: Memor ia + Sodium 1-24 [...] s with feeding tube less than 14 Turkmen (Dobhoff, J-tube etc) and pediatric and patients. potassium 2020-0 No Notes: Memori a chloride 1-24 (Same as: l 19:51: K-Dur 20) [place] 00 "Do Not Crush" Give with food and full glass of water For patients unable to swallow tablet, dissolve in one half glass of water. Allow about 2 minutes for the tablets to disintegra te. Stir before giving to prepare slurry and administer . Please exclude Patient s with feeding tube less than 14 Turkmen (Dobhoff, J-tube etc) and pediatric and patients. [...] s with feeding tube less than 14 Turkmen (Dobhoff, J-tube etc) and pediatric and patients. [...] s with feeding tube less than 14 Turkmen (Dobhoff, J-tube etc) and pediatric and patients. Dilaudid 0 No Notes: Memoria 1-24 Same as: l 18:47: Dilaudid [place] 00 Dilaudid 0 No Notes: Memoria 1-24 Same as: l 18:47: Dilaudid [place] 00 Dilaudid 2019-0 No Notes: Memoria 1-24 Same as: l 18:47: Dilaudid [place] 00 Dilaudid 2019-0 No Notes: Memoria 1-24 Same as: l 18:47: Dilaudid [place] 00 Potassium 2019-0 No Notes: Memori a [...] s with feeding tube less than 14 Turkmen (Dobhoff, J-tube etc) and pediatric and patients. Potassium 2020-0 No Notes: Memori a Chloride 1-24 (Same as: l 16:00: K-Dur 20) [place] 00 "Do Not Crush" Give with food and full glass of water For patients unable to swallow tablet, dissolve in one half glass of water. Allow about 2 minutes for the tablets to disintegra te. Stir before giving to prepare slurry and administer . Please exclude Patient s with feeding tube less than 14 Turkmen (Dobhoff, J-tube etc) and pediatric and patients. [...] s with feeding tube less than 14 Turkmen (Dobhoff, J-tube etc) and pediatric and patients. [...] s with feeding tube less than 14 Turkmen (Dobhoff, J-tube etc) and pediatric and patients. heparin 2020-0 No 10,000 Memoria 1-24 unit, 10 l 01:00: mL, Route: [place] 00 DIALYSIS, Drug form: INJ, ONCALL, Dosing Weight 99.091, kg, Start date: 10/31/19 19:00:00 GAS BRAZER, Duration: 1 doses or times, 0 heparin 2020-0 No 10,000 Memoria 1-24 unit, 10 l 01:00: mL, Route: [place] 00 DIALYSIS, Drug form: INJ, ONCALL, Dosing Weight 99.091, kg, Start date: 10/31/19 19:00:00 GAS BRAZER, Duration: 1 doses or times, 0 heparin 2020-0 No 10,000 Memoria 1-24 unit, 10 l 01:00: mL, Route: [place] 00 DIALYSIS, Drug form: INJ, ONCALL, Dosing Weight 99.091, kg, Start date: 10/31/19 19:00:00 GAS BRAZER, Duration: 1 doses or times, 0 heparin 2020-0 No 10,000 Memoria 1-24 unit, 10 l 01:00: mL, Route: [place] 00 DIALYSIS, Drug form: INJ, ONCALL, Dosing Weight 99.091, kg, Start date: 10/31/19 19:00:00 GAS BRAZER, Duration: 1 doses or times, 0 Albuterol 2020-0 No Notes: Memori a 0.833 MG/ML 1-23 (Same as: :: Duoneb) [place] Ipratropium 00 [place] 0.167 MG/ML Inhalant Solution [DuoNeb] Albuterol 2020-0 No Notes: Memori a 0.833 MG/ML 1-23 (Same as: :: Duoneb) [place] Ipratropium 00 [place] 0.167 MG/ML Inhalant Solution [DuoNeb] Albuterol 2020-0 No Notes: Memori a 0.833 MG/ML 1-23 (Same as: :: Duoneb) [place] Ipratropium 00 [place] 0.167 MG/ML Inhalant Solution [DuoNeb] Albuterol 2020-0 No Notes: Memori a 0.833 MG/ML 1-23 (Same as: :: Duoneb) [place] Ipratropium 00 [place] 0.167 MG/ML Inhalant Solution [DuoNeb] Potassium 2020-0 No Notes: Memori a Chloride 1-23 (Same as: l 11:58: K-Dur 20) [place] 00 "Do Not Crush" Give with food and full glass of water For patients unable to swallow tablet, dissolve in one half glass of water. Allow about 2 minutes for the tablets to disintegra te. Stir before giving to prepare slurry and administer . Please exclude Patient s with feeding tube less than 14 Turkmen (Dobhoff, J-tube etc) and pediatric and patients. Potassium 2020-0 No Notes: Memori a Chloride 1-23 (Same as: l 11:58: K-Dur 20) [place] 00 "Do Not Crush" Give with food and full glass of water For patients unable to swallow tablet, dissolve in one half glass of water. Allow about 2 minutes for the tablets to disintegra te. Stir before giving to prepare slurry and administer . Please exclude Patient s with feeding tube less than 14 Turkmen (Dobhoff, J-tube etc) and pediatric and patients. Potassium 2020-0 No Notes: Memori a Chloride 1-23 (Same as: l 11:58: K-Dur 20) [place] 00 "Do Not Crush" Give with food and full glass of water For patients unable to swallow tablet, dissolve in one half glass of water. Allow about 2 minutes for the tablets to disintegra te. Stir before giving to prepare slurry and administer . Please exclude Patient s with feeding tube less than 14 Turkmen (Dobhoff, J-tube etc) and pediatric and patients. [...] s with feeding tube less than 14 Turkmen (Dobhoff, J-tube etc) and pediatric and patients. heparin 2020-0 No 10,000 Memoria 1-23 unit, 10 l 05:00: mL, Route: DIALYSIS, Drug form: INJ, ONCALL, Dosing Weight 99.091, kg, Start date: 10/30/19 23:00:00 GAS BRAZER, Duration: 1 doses or times, 0 heparin 2020-0 No 10,000 Memoria 1-23 unit, 10 l 05:00: mL, Route: DIALYSIS, Drug form: INJ, ONCALL, Dosing Weight 99.091, kg, Start date: 10/30/19 23:00:00 GAS BRAZER, Duration: 1 doses or times, 0 heparin 2020-0 No 10,000 Memoria 1-23 unit, 10 l 05:00: mL, Route: DIALYSIS, Drug form: INJ, ONCALL, Dosing Weight 99.091, kg, Start date: 10/30/19 23:00:00 GAS BRAZER, Duration: 1 doses or times, 0 heparin 2020-0 No 10,000 Memoria 1-23 unit, 10 l 05:00: mL, Route: [place] 00 DIALYSIS, Drug form: INJ, ONCALL, Dosing Weight 99.091, kg, Start date: 10/30/19 23:00:00 GAS BRAZER, Duration: 1 doses or times, 0 Potassium [...] s with feeding tube less than 14 Turkmen (Dobhoff, J-tube etc) and pediatric and patients. Potassium 2020-0 No Notes: Memori a Chloride 1-23 (Same as: l 04:05: K-Dur 20) [place] 00 "Do Not Crush" Give with food and full glass of water For patients unable to swallow tablet, dissolve in one half glass of water. Allow about 2 minutes for the tablets to disintegra te. Stir before giving to prepare slurry and administer . Please exclude Patient s with feeding tube less than 14 Turkmen (Dobhoff, J-tube etc) and pediatric and patients. Potassium 2020-0 No Notes: Memori a Chloride 1-23 (Same as: l 04:05: K-Dur 20) [place] 00 "Do Not Crush" Give with food and full glass of water For patients unable to swallow tablet, dissolve in one half glass of water. Allow about 2 minutes for the tablets to disintegra te. Stir before giving to prepare slurry and administer . Please exclude Patient s with feeding tube less than 14 Turkmen (Dobhoff, J-tube etc) and pediatric and patients. [...] s with feeding tube less than 14 Turkmen (Dobhoff, J-tube etc) and pediatric and patients. Tylenol 2020-0 No Notes: Do Memor ia 1-22 not exceed l 19:42: 4 gm/day. [place] 00 (Same as: Tylenol) Tylenol 2019-0 No Notes: Do Memor ia 1-22 not exceed l 19:42: 4 gm/day. [place] 00 (Same as: Tylenol) Tylenol 2019-0 No Notes: Do Memor ia 1-22 not exceed l 19:42: 4 gm/day. [place] 00 (Same as: Tylenol) Tylenol 2019-0 No Notes: Do Memor ia 1-22 not exceed l 19:42: 4 gm/day. [place] 00 (Same as: Tylenol) Roxicodone 2019-0 No Notes: Memor ia 1-22 (Same as: l 19:41: Roxicodone ) Roxicodone 2019-0 No Notes: Memor ia 1-22 (Same as: l 19:41: Roxicodone ) Roxicodone 2019-0 No Notes: Memor ia 1-22 (Same as: l 19:41: Roxicodone ) Roxicodone 2019-0 No Notes: Memor ia 1-22 (Same as: l 19:41: Roxicodone ) Acetaminoph 2019-0 No 1 tab, Kojo lynn en 325 MG / 10-30 Route: PO, l Oxycodone 19:20: Drug Form: Jarad rider Hydrochlori 00 TAB, de 5 MG Dosing Oral Tablet Weight [Percocet 99.091, 5/325] kg, Q4H, PRN Pain Score 4-6, Start date: 10/30/19 13:20:00 GAS BRAZER, Duration: 30 day, Stop date: 11/29/19 13:19:00 GAS BRAZER Acetaminoph 2020-0 No 1 tab, Kojo lynn en 325 MG / 10-30 Route: PO, l Oxycodone 19:20: Drug Form: Jarad rider Hydrochlori 00 TAB, de 5 MG Dosing Oral Tablet Weight [Percocet 99.091, 5/325] kg, Q4H, PRN Pain Score 4-6, Start date: 10/30/19 13:20:00 GAS BRAZER, Duration: 30 day, Stop date: 11/29/19 13:19:00 GAS BRAZER Acetaminoph 2020-0 No 1 tab, Kojo lynn en 325 MG / 10-30 Route: PO, l Oxycodone 19:20: Drug Form: Jarad rmdionne Hydrochlori 00 TAB, de 5 MG Dosing Oral Tablet Weight [Percocet 99.091, 5/325] kg, Q4H, PRN Pain Score 4-6, Start date: 10/30/19 13:20:00 GAS BRAZER, Duration: 30 day, Stop date: 11/29/19 13:19:00 GAS BRAZER Acetaminoph 2020-0 No 1 tab, Kojo lynn en 325 MG / 10-30 Route: PO, l Oxycodone 19:20: Drug Form: Jarad rmdionne Hydrochlori 00 TAB, de 5 MG Dosing Oral Tablet Weight [Percocet 99.091, 5/325] kg, Q4H, PRN Pain Score 4-6, Start date: 10/30/19 13:20:00 GAS BRAZER, Duration: 30 day, Stop date: 11/29/19 13:19:00 GAS BRAZER vancomycin 2019-0 No 2000 mg: Me moria [...] moria 10-30 infuse l 16:00: over 2.5 [place] 00 hours For adult patients only: Round to nearest 250 mg per Medical Staff approval MEDICATION WASTE Product Size: 1000 mg Product Wasted: ___ mg cefepime 2020-0 No Notes: Memoria 10-30 (Same As: l 16:00: Maxipime) [place] 00 MEDICATION WASTE Product Size: 1000 mg Product Wasted: ___ mg Vancomycin 2020-0 No 2000 mg: Me moria 10-30 infuse l 16:00: over 2.5 [place] 00 hours For adult patients only: Round to nearest 250 mg per Medical Staff approval MEDICATION WASTE Product Size: 1000 mg Product Wasted: ___ mg cefepime 2020-0 No Notes: Memoria 10-30 (Same As: l 16:00: Maxipime) [place] 00 MEDICATION WASTE Product Size: 1000 mg Product Wasted: ___ mg Vancomycin 2020-0 No 2000 mg: Me moria 10-30 infuse l 16:00: over 2.5 [place] 00 hours For adult patients only: Round to nearest 250 mg per Medical Staff approval MEDICATION WASTE Product Size: 1000 mg Product Wasted: ___ mg cefepime 2020-0 No Notes: Memoria 10-30 (Same As: l 16:00: Maxipime) [place] 00 MEDICATION WASTE Product Size: 1000 mg Product Wasted: ___ mg Vancomycin 2020-0 No 2000 mg: Me moria 10-30 infuse l 16:00: over 2.5 [place] 00 hours For adult patients only: Round to nearest 250 mg per Medical Staff approval MEDICATION WASTE Product Size: 1000 mg Product Wasted: ___ mg NIFEdipine 2019-0 No Notes: Memor ia 90 mg oral 1-22 (Same as: l tablet, 15:00: Adalat [place] extended 00 CC,Procard release ia XL) "Do Not Crush" "Avoid grapefruit and grapefruit juice" Fauzia-Conor 2020-0 No Fauzia-Conor Mem oria oral tablet 1-22 oral l 15:00: tablet, 1 [place] 00 tab, Route: PO, Daily, 10/30/19 9:00:00 GAS BRAZER, Duration: 30 day, Stop date: 11/28/19 9:00:00 GAS BRAZER Nephro-Conor 2020-0 No Notes: Kojo lynn Rx 1-22 (Same as: l 15:00: Nephro-Vit [place] 00 e Rx and Diatx) Give with food. NIFEdipine No Notes: Memor ia 90 mg oral 1-22 (Same as: l tablet, 15:00: Adalat [place] extended 00 CC,Procard release ia XL) "Do Not Crush" "Avoid grapefruit and grapefruit juice" Fauzia-Conor 2019-0 No Fauzia-Conor Mem oria oral tablet 1-22 oral l 15:00: tablet, 1 [place] 00 tab, Route: PO, Daily, 10/30/19 9:00:00 GAS BRAZER, Duration: 30 day, Stop date: 11/28/19 9:00:00 GAS BRAZER Nephro-Conor 2020-0 No Notes: Kojo lynn Rx 1-22 (Same as: l 15:00: Nephro-Vit [place] 00 e Rx and Diatx) Give with food. NIFEdipine No Notes: Memor ia 90 mg oral 1-22 (Same as: l tablet, 15:00: Adalat [place] extended 00 CC,Procard release ia XL) "Do Not Crush" "Avoid grapefruit and grapefruit juice" Fauzia-Conor 2020-0 No Fauzia-Conor Mem oria oral tablet 1-22 oral l 15:00: tablet, 1 [place] 00 tab, Route: PO, Daily, 10/30/19 9:00:00 GAS BRAZER, Duration: 30 day, Stop date: 11/28/19 9:00:00 GAS BRAZER Nephro-Conor 2020-0 No Notes: Kojo lynn Rx 1-22 (Same as: l 15:00: Nephro-Vit [place] 00 e Rx and Diatx) Give with food. NIFEdipine No Notes: Memor ia 90 mg oral 10-30 (Same as: l tablet, 15:00: Adalat [place] extended 00 CC,Procard release ia XL) "Do Not Crush" "Avoid grapefruit and grapefruit juice" Fauzia-Conor No Fauzia-Conor Mem oria oral tablet 10-30 oral l 15:00: tablet, 1 [place] 00 tab, Route: PO, Daily, 10/30/19 9:00:00 GAS BRAZER, Duration: 30 day, Stop date: 11/28/19 9:00:00 GAS BRAZER Nephro-Conor No Notes: Kojo lynn Rx - (Same as: l 15:00: Nephro-Vit [place] 00 e Rx and Diatx) Give with food. Epoetin No Notes: Memoria Franca - (Same as: l 14:39: Procrit) [place] 00 epoetin [place] 95549 unit/1 ml VL. For dialysis use only. (Procrit) WASTE: F/P - Red; E -Red MEDICATION WASTE Product Size: 80766 unit Product Wasted: ___ unit Epoetin 2019-0 No Notes: Memoria Franca - (Same as: l 14:39: Procrit) [place] 00 epoetin franca 52460 unit/1 ml VL. For dialysis use only. (Procrit) WASTE: F/P - Red; E -Red MEDICATION WASTE Product Size: 38669 unit Product Wasted: ___ unit Epoetin 2019-0 No Notes: Memoria Franca 1-22 (Same as: l 14:39: Procrit) [place] 00 epoetin [place] 14928 unit/1 ml VL. For dialysis use only. (Procrit) WASTE: F/P - Red; E -Red MEDICATION WASTE Product Size: 31479 unit Product Wasted: ___ unit Epoetin 2019-0 No Notes: Memoria Franca 1-22 (Same as: l 14:39: Procrit) [place] 00 epoetin fr[place] 26503 unit/1 ml VL. For dialysis use only. (Procrit) WASTE: F/P - Red; E -Red MEDICATION WASTE Product Size: 96880 unit Product Wasted: ___ unit Potassium 2019- No Notes: Memori a Chloride 1-22 (Same as: l 14:38: K-Dur 20) [place] 00 "Do Not Crush" Give with food and full glass of water For patients unable to swallow tablet, dissolve in one half glass of water. Allow about 2 minutes for the tablets to disintegra te. Stir before giving to prepare slurry and administer . Please exclude Patient s with feeding tube less than 14 Turkmen (Dobhoff, J-tube etc) and pediatric and patients. Potassium 2019-0 No Notes: Memori a Chloride 1-22 (Same [...] s with feeding tube less than 14 Turk[place] (Dobhoff, J-tube etc) and pediatric and patients. Potassium 2019-0 No Notes: Memori a Chloride 1-22 (Same as: l 14:38: K-Dur 20) [place] 00 "Do Not Crush" Give with food and full glass of water For patients unable to swallow tablet, dissolve in one half glass of water. Allow about 2 minutes for the tablets to disintegra te. Stir before giving to prepare slurry and administer . Please exclude Patient s with feeding tube less than 14 Turk[place] (Dobhoff, J-tube etc) and pediatric and patients. Potassium No Notes: Memori a Chloride 1-22 (Same [...] s with feeding tube less than 14 Turk[place] (Dobhoff, J-tube etc) and pediatric and patients. carvedilol No Notes: Memor ia 1-22 Give with l 03:00: food. [place] 00 (Same As: Coreg) tamsulosin 2020-0 No Notes: Memor ia 1-22 (Same As: l 03:00: Flomax) [place] 00 "Do Not Crush" carvedilol 2020-0 No [...] ia 1-22 (Same As: l 03:00: Flomax) [place] 00 "Do Not Crush" carvedilol 2020-0 No Notes: Memor ia 1-22 Give with l 03:00: food. [place] 00 (Same As: Coreg) tamsulosin 2020-0 No Notes: Memor ia 1-22 (Same As: l 03:00: Flomax) [place] 00 "Do Not Crush" Lactulose 2020-0 No Notes: Memori a 667 MG/ML 1-22 (Same l Oral 00:36: as:Chronul [place] Solution 00 ac) Lactulose 2020-0 No Notes: Memori a 1-22 Lactulose l 00:36: 300ml, [place] 00 Water for Irrigation 700ml - total volume = 1000ml Lactulose 2020-0 No Notes: Memori a 667 MG/ML 1-22 (Same l Oral 00:36: as:Chronul [place] Solution 00 ac) Lactulose 2020-0 No Notes: Memori a 1-22 Lactulose l 00:36: 300ml, [place] 00 Water for Irrigation 700ml - total volume = 1000ml Lactulose 2020-0 No Notes: Memori a 667 MG/ML 1-22 (Same l Oral 00:36: as:Chronul [place] Solution 00 ac) Lactulose 2020-0 No Notes: Memori a 1-22 Lactulose l 00:36: 300ml, [place] 00 Water for Irrigation 700ml - total volume = 1000ml Lactulose 2020-0 No Notes: Memori a 667 MG/ML 1-22 (Same l Oral 00:36: as:Chronul [place] Solution 00 ac) Lactulose No Notes: Memori a - Lactulose l 00:36: 300ml, Water for Irrigation 700ml - total volume = 1000ml tizanidine No Notes: Memor ia 1-21 (Same As: l 22:22: Zanaflex) tizanidine No Notes: Memor ia 1-21 (Same As: l 22:22: Zanaflex) tizanidine No Notes: Memor ia - (Same As: l 22:22: Zanaflex) tizanidine No Notes: Memor ia - (Same As: l 22:22: Zanaflex) Hydralazine No Notes: Kojo lynn Hydrochlori 1-21 [...] PO, l MG Oral 21:57: TID, 0 [place] Capsule 00 Refill(s) Diazepam 2019-0 No Notes: Memoria 1-21 (Same as: l 21:25: Valium) [place] 00 Diazepam 0 No Notes: Memoria 1-21 (Same as: l 21:25: Valium) [place] Diazepam 0 No Notes: Memoria 1-21 (Same as: l 21:25: Valium) [place] Diazepam No Notes: Memoria 1-21 (Same as: l 21:25: Valium) [place] 00 Hydralazine No Notes: Kojo lynn 1-21 (Same as: l 18:50: Apresoline [place] 00 ) Push over 5 minutes Hydralazine 2019- No Notes: Kojo lynn 1-21 (Same as: l 18:50: Apresoline [place] ) Push over 5 minutes Hydralazine 2019-0 No Notes: Kojo lynn 1-21 (Same as: l 18:50: Apresoline [place] ) Push over 5 minutes Hydralazine 2019-0 No Notes: Kojo lynn 1-21 (Same as: l 18:50: Apresoline [place] ) Push over 5 minutes acetaminoph No Notes: Do M emoria en-codeine 1-21 not exceed l #3 18:49: 4gm/day of [place] acetaminop hen. (Same as: Tylenol with Codeine # 3) acetaminoph No Notes: Do M emoria en-codeine 1-21 not exceed l #3 18:49: 4gm/day of [place] acetaminop hen. (Same as: Tylenol with Codeine # 3) acetaminoph No Notes: Do M emoria en-codeine 1-21 not exceed l #3 18:49: 4gm/day of [place] acetaminop hen. (Same as: Tylenol with Codeine # 3) acetaminoph No Notes: Do M emoria en-codeine 1-21 not exceed l #3 18:49: 4gm/day of [place] 00 acetaminop hen. (Same as: Tylenol with Codeine # 3) Lasix No Notes: Memoria - (Same as: l 15:00: Lasix) [place] 00 MEDICATION WASTE Product Size: 40 mg Product Wasted: ___ mg Docusate 0 No Notes: Memoria 10-29 (Same as: l 15:00: Colace) [place] (Do Not Crush) Lasix No Notes: Memoria 10-29 (Same as: l 15:00: Lasix) [place] MEDICATION WASTE Product Size: 40 mg Product Wasted: ___ mg Docusate 0 No Notes: Memoria 10-29 (Same as: l 15:00: Colace) [place] (Do Not Crush) Lasix No Notes: Memoria 10-29 (Same as: l 15:00: Lasix) [place] MEDICATION WASTE Product Size: 40 mg Product Wasted: ___ mg Docusate 0 No Notes: Memoria 10-29 (Same as: l 15:00: Colace) [place] (Do Not Crush) Lasix No Notes: Memoria 10-29 (Same as: l 15:00: Lasix) [place] 00 MEDICATION WASTE Product Size: 40 mg Product Wasted: ___ mg Docusate 0 No Notes: Memoria 10-29 (Same as: l 15:00: Colace) [place] (Do Not Crush) Potassium 0 No Notes: Memori a Chloride 10-29 (Same [...] s with feeding tube less than 14 [place] (Dobhoff, J-tube etc) and pediatric and patients. Magnesium No Notes: Memori a Sulfate 10-29 WASTE: F/P l 14:55: - Sink; E [place] 00 - Municipal Trash Bin Potassium 2020-0 No Notes: Memori a Chloride 1-21 (Same as: l 14:55: K-Dur 20) [place] 00 "Do Not Crush" Give with food and full glass of water For patients unable to swallow tablet, dissolve in one half glass of water. Allow about 2 minutes for the tablets to disintegra te. Stir before giving to prepare slurry and administer . Please exclude Patient s with feeding tube less than 14 [place] (Dobhoff, J-tube etc) and pediatric and patients. Magnesium 2020-0 No Notes: Memori a Sulfate 1-21 WASTE: F/P l 14:55: - Sink; E [place] 00 - Municipal Trash Bin Potassium 2020-0 No Notes: Memori a Chloride 1-21 (Same as: l 14:55: K-Dur 20) [place] 00 "Do Not Crush" Give with food and full glass of water For patients unable to swallow tablet, dissolve in one half glass of water. Allow about 2 minutes for the tablets to disintegra te. Stir before giving to prepare slurry and administer . Please exclude Patient s with feeding tube less than 14 [place] (Dobhoff, J-tube etc) and pediatric and patients. Magnesium 2020-0 No Notes: Memori a Sulfate 1-21 WASTE: F/P l 14:55: - Sink; E - [facility] Potassium 2020-0 No Notes: Memori a Chloride 1-21 (Same as: l 14:55: K-Dur 20) [place] "Do Not Crush" Give with food and full glass of water For patients unable to swallow tablet, dissolve in one half glass of water. Allow about 2 minutes for the tablets to disintegra te. Stir before giving to prepare slurry and administer . Please exclude Patient s with feeding tube less than 14 Turkmen (Dobhoff, J-tube etc) and pediatric and patients. Magnesium 2020-0 No Notes: Memori a Sulfate 1-21 WASTE: F/P l 14:55: - Sink; E [place] 00 - [facility] Diazepam 2020-0 Yes 10 mg, PO, Mem oria 1-21 PRN as l 08:31: needed for anxiety, 0 Refill(s) Diazepam 2020-0 Yes 10 mg, PO, Mem oria 1-21 PRN as l 08:31: needed for [place] 00 anxiety, 0 Refill(s) Diazepam 2020-0 Yes 10 mg, PO, Mem oria -21 PRN as l 08:31: needed for [place] 00 anxiety, 0 Refill(s) Diazepam 2020-0 Yes 10 mg, PO, Mem oria -21 PRN as l 08:31: needed for [place] 00 anxiety, 0 Refill(s) zolpidem 10 2020-0 Yes 10 mg = 1 M emoria mg oral 1-21 tab, PO, l tablet 08:27: Bedtime, [place] 00 PRN as needed for insomnia, 0 Refill(s) zolpidem 10 2020-0 Yes 10 mg = 1 M emoria mg oral 1-21 tab, PO, l tablet 08:27: Bedtime, [place] 00 PRN as needed for insomnia, 0 Refill(s) zolpidem 10 2020-0 Yes 10 mg = 1 M emoria mg oral 1-21 tab, PO, l tablet 08:27: Bedtime, [place] 00 PRN as needed for insomnia, 0 Refill(s) zolpidem 10 2020-0 Yes 10 mg = 1 M emoria mg oral 1-21 tab, PO, l tablet 08:27: Bedtime, [place] 00 PRN as needed for insomnia, 0 Refill(s) Lasix 2020-0 No Notes: Memoria 10-29 (Same as: l 06:55: Lasix) [place] 00 MEDICATION WASTE Product Size: 40 mg Product Wasted: ___ mg Lasix 2020-0 No Notes: Memoria 10-29 (Same as: l 06:55: Lasix) [place] 00 MEDICATION WASTE Product Size: 40 mg Product Wasted: ___ mg Lasix 2020-0 No Notes: Memoria 10-29 (Same as: l 06:55: Lasix) [place] 00 MEDICATION WASTE Product Size: 40 mg Product Wasted: ___ mg Lasix 2020-0 No Notes: Memoria 10-29 (Same as: l 06:55: Lasix) [place] 00 MEDICATION WASTE Product Size: 40 mg Product Wasted: ___ mg Dextrose 2020-0 No 12.5 gm, Memor ia 50% Syringe - 25 mL, l (D50W) 06:50: Route: IVP, Drug Form: INJ, Dosing Weight 90.909, kg, PRN, PRN Blood Glucose Results, Start date: 10/29/19 0:50:00 GAS BRAZER, Duration: 30 day, Stop date: 11/28/19 0:49:00 GAS BRAZER, 0 Glucagon 2019-0 No 1 mg, Memoria 10-29 Route: IM, l 06:50: Drug form: [place] PDR/INJ, PRN, Dosing Weight 90.909, kg, PRN Blood Glucose Results, Start date: 10/29/19 0:50:00 GAS BRAZER, Duration: 30 day, Stop date: 11/28/19 0:49:00 GAS BRAZER, 0 Ondansetron 2019-0 No Notes: Kojo lynn [...] - 25 mL, l (D50W) 06:50: Route: [place] 00 IVP, Drug Form: INJ, Dosing Weight 90.909, kg, PRN, PRN Blood Glucose Results, Start date: 10/29/19 0:50:00 GAS BRAZER, Duration: 30 day, Stop date: 11/28/19 0:49:00 GAS BRAZER, 0 Glucagon 2019-0 No 1 mg, Memoria 10-29 Route: IM, l 06:50: Drug form: [place] 00 PDR/INJ, PRN, Dosing Weight 90.909, kg, PRN Blood Glucose Results, Start date: 10/29/19 0:50:00 GAS BRAZER, Duration: 30 day, Stop date: 11/28/19 0:49:00 GAS BRAZER, 0 Ondansetron 2020-0 No Notes: Kojo lynn - (Same as: l 06:50: Zofran) MEDICATION WASTE [...] Blood Glucose Results, Start date: 10/29/19 0:50:00 GAS BRAZER, Duration: 30 day, Stop date: 11/28/19 0:49:00 GAS BRAZER, 0 Glucagon 0 No 1 mg, Memoria 10-29 Route: IM, l 06:50: Drug form: [place] 00 PDR/INJ, PRN, Dosing Weight 90.909, kg, PRN Blood Glucose Results, Start date: 10/29/19 0:50:00 GAS BRAZER, Duration: 30 day, Stop date: 11/28/19 0:49:00 GAS BRAZER, 0 Ondansetron No Notes: Kojo lynn 10-29 [...] 10-29 25 mL, l (D50W) 06:50: Route: [place] 00 IVP, Drug Form: INJ, Dosing Weight 90.909, kg, PRN, PRN Blood Glucose Results, Start date: 10/29/19 0:50:00 GAS BRAZER, Duration: 30 day, Stop date: 11/28/19 0:49:00 GAS BRAZER, 0 Glucagon No 1 mg, Memoria 10-29 Route: IM, l 06:50: Drug form: [place] 00 PDR/INJ, PRN, Dosing Weight 90.909, kg, PRN Blood Glucose Results, Start date: 10/29/19 0:50:00 GAS BRAZER, Duration: 30 day, Stop date: 11/28/19 0:49:00 GAS BRAZER, 0 Ondansetron No Notes: Kojo lynn 10-29 [...] l / 03:22: Duoneb) [place] Ipratropium 00 [place] 0.167 MG/ML Inhalant Solution [DuoNeb] Albuterol No Notes: SEE Me moria 0.83 MG/ML 10-29 RT l Inhalant 03:22: DOCUMENTAT Her meeks Solution 00 ION (Same as: Proventil) Albuterol No Notes: Memori a 0.833 MG/ML 10-29 (Same as: l / 03:22: Duoneb) [place] Ipratropium 00 [place] 0.167 MG/ML Inhalant Solution [DuoNeb] Albuterol No Notes: SEE Me moria 0.83 MG/ML - RT l Inhalant 03:22: DOCUMENTAT Her meeks Solution 00 ION (Same as: Proventil) Albuterol No Notes: Memori a 0.833 MG/ML 10-29 (Same as: l / 03:22: Duoneb) [place] Ipratropium 00 [place] 0.167 MG/ML Inhalant Solution [DuoNeb] Albuterol No Notes: SEE Me moria 0.83 MG/ML 10-29 RT l Inhalant 03:22: DOCUMENTAT Her meeks Solution 00 ION (Same as: Proventil) Albuterol No Notes: Memori a 0.833 MG/ML 10-29 (Same as: l 03:22: Duoneb) [place] Ipratropium 00 [place] 0.167 MG/ML Inhalant Solution [DuoNeb] Albuterol No Notes: SEE Me moria 0.83 MG/ML 10-29 RT l Inhalant 03:22: DOCUMENTAT Her meeks Solution 00 ION (Same as: Proventil) carvedilol 2018-10 Yes 12.5 mg = Me moria 12.5 mg -12 1 tab, PO, l oral tablet 17:56: Q12H, # 60 [place] 00 tab, 0 Refill(s), Pharmacy: [facility] Furosemide 2018-10 Yes 80 mg = 2 Me moria 40 MG Oral 1-12 tab, PO, l Tablet 17:56: TID, # 180 [place] nn 00 tab, 0 Refill(s), Pharmacy: [facility] Hydralazine 2018-10 Yes 50 mg = 2 M emoria Hydrochlori 1-12 tab, PO, l de 25 MG 17:56: Q8H, # 180 Her meeks Oral Tablet 00 tab, 0 Refill(s), Pharmacy: [facility] lisinopril 2018-10 Yes 40 mg = 1 Me moria 40 mg oral 1-12 tab, PO, l tablet 17:56: Daily, # [place] 00 30 tab, 0 Refill(s), Pharmacy: [facility] NIFEdipine 2018-10 Yes 90 mg = 1 Me moria 90 mg oral 1-12 tab, PO, l tablet, 17:56: Daily, # Rafael n extended 00 30 tab, 0 release Refill(s), Pharmacy: [facility] carvedilol 2018-10 Yes 12.5 mg = Me moria 12.5 mg 1-12 1 tab, PO, l oral tablet 17:56: Q12H, # 60 [place] 00 tab, 0 Refill(s), Pharmacy: [facility] Furosemide 2018-10 Yes 80 mg = 2 Me moria 40 MG Oral 1-12 tab, PO, l Tablet 17:56: TID, # 180 [place] nn 00 tab, 0 Refill(s), Pharmacy: [facility] Hydralazine 2018-10 Yes 50 mg = 2 M emoria Hydrochlori 1-12 tab, PO, l de 25 MG 17:56: Q8H, # 180 Her meeks Oral Tablet 00 tab, 0 Refill(s), Pharmacy: [facility] lisinopril 2018-10 Yes 40 mg = 1 Me moria 40 mg oral 1-12 tab, PO, l tablet 17:56: Daily, # [place] 00 30 tab, 0 Refill(s), Pharmacy: [facility] NIFEdipine 2018-10 Yes 90 mg = 1 Me moria 90 mg oral 1-12 tab, PO, l tablet, 17:56: Daily, # Rafael n extended 00 30 tab, 0 release Refill(s), Pharmacy: [facility] carvedilol 2018-10 Yes 12.5 mg = Me moria 12.5 mg 1-12 1 tab, PO, l oral tablet 17:56: Q12H, # 60 [place] 00 tab, 0 Refill(s), Pharmacy: [facility] Furosemide 2018-10 Yes 80 mg = 2 Me moria 40 MG Oral 1-12 tab, PO, l Tablet 17:56: TID, # 180 [place] nn 00 tab, 0 Refill(s), Pharmacy: [facility] Hydralazine 2018-10 Yes 50 mg = 2 M emoria Hydrochlori 1-12 tab, PO, l de 25 MG 17:56: Q8H, # 180 Her meeks Oral Tablet 00 tab, 0 Refill(s), Pharmacy: [facility] lisinopril 2018-10 Yes 40 mg = 1 Me moria 40 mg oral 1-12 tab, PO, l tablet 17:56: Daily, # [place] 00 30 tab, 0 Refill(s), Pharmacy: [facility] NIFEdipine 2018-10 Yes 90 mg = 1 Me moria 90 mg oral 1-12 tab, PO, l tablet, 17:56: Daily, # Rafael n extended 00 30 tab, 0 release Refill(s), Pharmacy: [facility] carvedilol 2018-10 Yes 12.5 mg = Me moria 12.5 mg 1-12 1 tab, PO, l oral tablet 17:56: Q12H, # 60 [place] 00 tab, 0 Refill(s), Pharmacy: [facility] Furosemide 2018-10 Yes 80 mg = 2 Me moria 40 MG Oral 1-12 tab, PO, l Tablet 17:56: TID, # 180 [place] nn 00 tab, 0 Refill(s), Pharmacy: [facility] Hydralazine 2018-10 Yes 50 mg = 2 M emoria Hydrochlori 1-12 tab, PO, l de 25 MG 17:56: Q8H, # 180 Her meeks Oral Tablet 00 tab, 0 Refill(s), Pharmacy: [facility] lisinopril 2018-10 Yes 40 mg = 1 Me moria 40 mg oral 1-12 tab, PO, l tablet 17:56: Daily, # [place] 00 30 tab, 0 Refill(s), Pharmacy: [facility] NIFEdipine 2018-10 Yes 90 mg = 1 Me moria 90 mg oral 1-12 tab, PO, l tablet, 17:56: Daily, # Rafael n extended 00 30 tab, 0 release Refill(s), Pharmacy: [facility] carvedilol 2018-10 No Notes: Memor ia 1-12 Give with l 03:00: food. [place] 00 (Same As: Coreg) carvedilol 2018-10 No Notes: Memor ia 1-12 Give with l 03:00: food. [place] 00 (Same As: Coreg) carvedilol 2018-10 No [...] Weight 96.364, kg, Start date: 08/19/19 9:00:00 GAS BRAZER, Duration: 30 day, Stop date: 09/17/19 9:00:00 GAS BRAZER, 0 lisinopril 2018-10 No Notes: Memor ia 1-11 (Same as: l 15:00: Prinivil, [place] 00 Zestril) NIFEdipine 2018-10 No 90 mg, Memor ia 60 mg oral 10-19 Route: PO, l tablet, 15:00: Drug form: Herm dionne extended 00 ERTAB, release Daily, Dosing Weight 96.364, kg, Start date: 08/19/19 9:00:00 GAS BRAZER, Duration: 30 day, Stop date: 09/17/19 9:00:00 GAS BRAZER, 0 lisinopril 2018-10 No Notes: Memor ia 1-11 (Same as: l 15:00: Prinivil, [place] 00 Zestril) NIFEdipine 2018-10 No 90 mg, Memor ia 60 mg oral 10-19 Route: PO, l tablet, 15:00: Drug form: Herm dionne extended 00 ERTAB, release Daily, Dosing Weight 96.364, kg, Start date: 08/19/19 9:00:00 GAS BRAZER, Duration: 30 day, Stop date: 09/17/19 9:00:00 GAS BRAZER, 0 lisinopril 2018-10 No Notes: Memor ia -11 (Same as: l 15:00: Prinivil, [place] 00 Zestril) NIFEdipine 2018-10 No 90 mg, Memor ia 60 mg oral 10-19 Route: PO, l tablet, 15:00: Drug form: Herm dionne extended 00 ERTAB, release Daily, Dosing Weight 96.364, kg, Start date: 08/19/19 9:00:00 GAS BRAZER, Duration: 30 day, Stop date: 09/17/19 9:00:00 GAS BRAZER, 0 lisinopril 2018-10 No Notes: Memor ia 1-11 (Same as: l 15:00: Prinivil, [place] Zestril) carvedilol 2018-10 No Notes: Memor ia [...] lynn 1-10 (Same as: l 22:00: Apresoline [place] 00 ) May interfere w/enteral feedings Take With Food. Hydralazine 2018-10 No Notes: Kojo lynn 1-10 (Same as: l 22:00: Apresoline [place] 00 ) May interfere w/enteral feedings Take With Food. Hydralazine 2018-10 No Notes: Kojo lynn 1-10 (Same as: l 22:00: Apresoline [place] 00 ) May interfere w/enteral feedings Take With Food. Lisinopril 2018-10 No Notes: Memor ia 1-10 (Same as: l 20:11: Prinivil, [place] 00 Zestril) Lisinopril 2018-10 No Notes: Memor ia 1-10 (Same as: l 20:11: Prinivil, [place] 00 Zestril) Lisinopril 2018-10 No Notes: Memor ia 1-10 (Same as: l 20:11: Prinivil, [place] 00 Zestril) Lisinopril 2018-10 No Notes: Memor [...] and grapefruit juice". Do not crush heparin 2018- No 10,000 Memoria 1-10 unit/mL, l 15:29: Route: DIALYSIS, Drug form: INJ, ONCALL, Dosing Weight 96.364, kg, Priority: NOW, Start date: 08/18/19 9:29:00 GAS BRAZER, Duration: 1 doses or times, 0 heparin 2018- No 10,000 Memoria 1-10 unit/mL, l 15:29: Route: DIALYSIS, Drug form: INJ, ONCALL, Dosing Weight 96.364, kg, Priority: NOW, Start date: 08/18/19 9:29:00 GAS BRAZER, Duration: 1 doses or times, 0 heparin 2018-10 No 10,000 Memoria 1-10 unit/mL, l 15:29: Route: DIALYSIS, Drug form: INJ, ONCALL, Dosing Weight 96.364, kg, Priority: NOW, Start date: 08/18/19 9:29:00 GAS BRAZER, Duration: 1 doses or times, 0 heparin 2018-10 No 10,000 Memoria 1-10 unit/mL, l 15:29: Route: DIALYSIS, Drug form: INJ, ONCALL, Dosing Weight 96.364, kg, Priority: NOW, Start date: 08/18/19 9:29:00 GAS BRAZER, Duration: 1 doses or times, 0 heparin 2018- No 10,000 Memoria 1-09 unit, 10 l 19:00: mL, Route: [place] 00 DIALYSIS, Drug form: INJ, ONCALL, Dosing Weight 96.364, kg, Start date: 08/17/19 13:00:00 GAS BRAZER, Duration: 1 doses or times, 0 heparin 2018- No 10,000 Memoria 1-09 unit, 10 l 19:00: mL, Route: [place] 00 DIALYSIS, Drug form: INJ, ONCALL, Dosing Weight 96.364, kg, Start date: 08/17/19 13:00:00 GAS BRAZER, Duration: 1 doses or times, 0 heparin 2018- No 10,000 Memoria 1-09 unit, 10 l 19:00: mL, Route: [place] 00 DIALYSIS, Drug form: INJ, ONCALL, Dosing Weight 96.364, kg, Start date: 08/17/19 13:00:00 GAS BRAZER, Duration: 1 doses or times, 0 heparin 2019-1 No 10,000 Memoria 1-09 unit, 10 l 19:00: mL, Route: [place] 00 DIALYSIS, Drug form: INJ, ONCALL, Dosing Weight 96.364, kg, Start date: 08/17/19 13:00:00 GAS BRAZER, Duration: 1 doses or times, 0 Sodium 2019-1 No 1,000 mL, Memori a Chloride 1-09 1,000 l 0.9% 18:06: ml/hr, [place] (Bolus) IV 00 Infuse Over: 1 hr, Route: IV, 1,000, Drug form: INJ, PRN, Priority: STAT, Dosing Weight 96.364 kg, Start date: 08/17/19 12:06:00 GAS BRAZER, Duration: 30 day, Stop date: 09/16/19 12:05:00 GAS BRAZER, PRN Dialysis, 0 Sodium 2018- No 1,000 mL, Memori a Chloride 1-09 1,000 l 0.9% 18:06: ml/hr, [place] (Bolus) IV 00 Infuse Over: 1 hr, Route: IV, 1,000, Drug form: INJ, PRN, Priority: STAT, Dosing Weight 96.364 kg, Start date: 08/17/19 12:06:00 GAS BRAZER, Duration: 30 day, Stop date: 09/16/19 12:05:00 GAS BRAZER, PRN Dialysis, 0 Sodium 2019- No 1,000 mL, Memori a Chloride 1-09 1,000 l 0.9% 18:06: ml/hr, [place] (Bolus) IV 00 Infuse Over: 1 hr, Route: IV, 1,000, Drug form: INJ, PRN, Priority: STAT, Dosing Weight 96.364 kg, Start date: 08/17/19 12:06:00 GAS BRAZER, Duration: 30 day, Stop date: 09/16/19 12:05:00 GAS BRAZER, PRN Dialysis, 0 Sodium 2019- No 1,000 mL, Memori a Chloride 1-09 1,000 l 0.9% 18:06: ml/hr, [place] (Bolus) IV 00 Infuse Over: 1 hr, Route: IV, 1,000, Drug form: INJ, PRN, Priority: STAT, Dosing Weight 96.364 kg, Start date: 08/17/19 12:06:00 GAS BRAZER, Duration: 30 day, Stop date: 09/16/19 12:05:00 GAS BRAZER, PRN Dialysis, 0 Potassium 2018-10 No Notes: Memori a Chloride 1-08 (Same as: l 15:18: K-Dur 20) [place] 00 "Do Not Crush" Give with food and full glass of water For patients unable to swallow tablet, dissolve in one half glass of water. Allow about 2 minutes for the tablets to disintegra te. Stir before giving to prepare slurry and administer . Please exclude Patient s with feeding tube less than 14 Turkmen (Dobhoff, J-tube etc) and pediatric and patients. [...] s with feeding tube less than 14 Turkmen (Dobhoff, J-tube etc) and pediatric and patients. Potassium 2018-10 No Notes: Memori a Chloride 1-08 (Same as: l 15:18: K-Dur 20) [place] 00 "Do Not Crush" Give with food and full glass of water For patients unable to swallow tablet, dissolve in one half glass of water. Allow about 2 minutes for the tablets to disintegra te. Stir before giving to prepare slurry and administer . Please exclude Patient s with feeding tube less than 14 Turkmen (Dobhoff, J-tube etc) and pediatric and patients. [...] s with feeding tube less than 14 Turkmen (Dobhoff, J-tube etc) and pediatric and patients. Seroquel 2018-10 No Notes: Memoria 1-08 (Same as: l 02:36: SEROquel) [place] 00 Seroquel 2018-10 No Notes: Memoria 1-08 (Same as: l 02:36: SEROquel) [place] 00 Seroquel 2018-10 No Notes: Memoria 1-08 (Same as: l 02:36: SEROquel) [place] 00 Seroquel 2018-10 No Notes: Memoria 1-08 (Same as: l 02:36: SEROquel) [place] 00 Ativan 2018-10 No Notes: Memoria 1-07 (Same as: l 21:45: Ativan) [place] 00 Ativan 2018-10 No Notes: Memoria 1-07 [...] 1-07 (Same as: l 15:00: Prinivil, [place] Zestril) multivitami 2018-10 No Notes: Kojo lynn n 1-07 (Same l 15:00: as:One Tab [place] 00 Daily, Tab-A-Conor + Beta Carotene) Give with food. NIFEdipine 2018-10 No Notes: Memor ia 60 mg oral 07 (Same as: l tablet, 15:00: Adalat CC, Herm dionne extended 00 Procardia release XL) Give on empty stomach. Take 1 hour before or 2 hours after meal; "Avoid grapefruit and grapefruit juice". Do not crush amLODIPine 2018-10 No Notes: Memor ia 1-07 (Same as: l 15:00: Norvasc) [place] lisinopril 2018-10 No Notes: Memor ia 1-07 (Same as: l 15:00: Prinivil, [place] 00 Zestril) multivitami 2018-10 No Notes: Kojo [...] ia 1-07 (Same as: l 15:00: Norvasc) [place] 00 lisinopril 2018-10 No Notes: Memor ia 1-07 (Same as: l 15:00: Prinivil, [place] 00 Zestril) multivitami 2018-10 No Notes: Kojo lynn n 1-07 (Same l 15:00: as:One Tab [place] 00 Daily, Tab-A-Conor + Beta Carotene) Give [...] ia 1-07 (Same as: l 15:00: Norvasc) [place] 00 lisinopril 2018-10 No Notes: Memor ia 1-07 (Same as: l 15:00: Prinivil, [place] 00 Zestril) multivitami 2018-10 No Notes: Kojo lynn n 1-07 (Same l 15:00: as:One Tab [place] 00 Daily, Tab-A-Conor + Beta Carotene) Give [...] Memoria 1-07 (Same as: l 10:28: Haldol) [place] 00 Haldol 2018-10 No Notes: Memoria 1-07 (Same as: l 10:28: Haldol) [place] Haldol 2018-10 No Notes: Memoria 1-07 (Same as: l 10:28: Haldol) [place] Haldol 2018-10 No Notes: Memoria 1-07 (Same as: l 10:28: Haldol) [place] Haldol 2018-10 No Notes: Memoria 1-07 (Same as: l 10:25: Haldol) [place] Haldol 2018-10 No Notes: Memoria 1-07 (Same as: l 10:25: Haldol) [place] Haldol 2018-10 No Notes: Memoria 1-07 (Same as: l 10:25: Haldol) [place] 00 Haldol 2018-10 No Notes: Memoria 1-07 (Same as: l 10:25: Haldol) [place] heparin 2018-10 No Notes: Memoria 1-07 porcine l 06:00: heparin [place] heparin 2018-10 No Notes: Memoria 1-07 porcine l 06:00: heparin [place] heparin 2018-10 No Notes: Memoria 1-07 porcine l 06:00: heparin [place] heparin 2018-10 No Notes: Memoria 1-07 porcine l 06:00: heparin [place] tamsulosin 2018-10 No Notes: Memor ia 1-07 (Same As: l 03:00: Flomax) [place] "Do Not Crush" tamsulosin 2018-10 No Notes: Memor ia 1-07 (Same As: l 03:00: Flomax) [place] "Do Not Crush" tamsulosin 2018-10 No Notes: Memor ia 1-07 (Same As: l 03:00: Flomax) [place] 00 "Do Not Crush" tamsulosin 2018-10 No Notes: Memor ia 1-07 (Same As: l 03:00: Flomax) [place] 00 "Do Not Crush" Amlodipine 2018-10 No 1 cap, Memor ia 10 MG / 1-06 Route: PO, l Benazepril 23:00: Drug Form: H ermann hydrochlori 00 CAP, de 20 MG Dosing Oral Weight Capsule 100.17, kg, TID, Start date: 08/14/19 17:00:00 GAS BRAZER, Duration: 30 day, Stop date: 09/13/19 13:00:00 GAS BRAZER carvedilol 2018-10 No Notes: Memor ia 1-06 Give with l 23:00: food. [place] 00 (Same As: Coreg) Furosemide 2018-10 No Notes: Memor ia 1-06 (Same as: l 23:00: Lasix) May [place] 00 cause GI upset. Give with food or milk. Hydralazine 2018-10 No Notes: Kojo lynn 1-06 (Same as: l 23:00: Apresoline [place] 00 ) May interfere w/enteral feedings Take [...] 100.17, kg, TID, Start date: 08/14/19 17:00:00 GAS BRAZER, Duration: 30 day, Stop date: 09/13/19 13:00:00 GAS BRAZER carvedilol 2018-10 No Notes: Memor ia 1-06 Give with l 23:00: food. [place] 00 (Same As: Coreg) Furosemide 2018-10 No Notes: Memor ia 1-06 (Same as: l 23:00: Lasix) May [place] cause GI upset. Give with food or milk. Hydralazine 2018-10 No Notes: Kojo lynn 1-06 (Same as: l 23:00: Apresoline [place] 00 ) May interfere w/enteral feedings Take [...] 100.17, kg, TID, Start date: 08/14/19 17:00:00 GAS BRAZER, Duration: 30 day, Stop date: 09/13/19 13:00:00 GAS BRAZER carvedilol 2018-10 No Notes: Memor ia 1-06 Give with l 23:00: food. [place] 00 (Same As: Coreg) Furosemide 2018-10 No Notes: Memor ia 1-06 (Same as: l 23:00: Lasix) May [place] 00 cause GI upset. Give with food or milk. Hydralazine 2018-10 No Notes: Kojo lynn 1-06 (Same as: l 23:00: Apresoline [place] 00 ) May interfere w/enteral feedings Take [...] 100.17, kg, TID, Start date: 08/14/19 17:00:00 GAS BRAZER, Duration: 30 day, Stop date: 09/13/19 13:00:00 GAS BRAZER carvedilol 2018-10 No Notes: Memor ia 1-06 Give with l 23:00: food. [place] 00 (Same As: Coreg) Furosemide 2018-10 No Notes: Memor ia 1-06 (Same as: l 23:00: Lasix) May [place] 00 cause GI upset. Give with food or milk. Hydralazine 2018-10 No Notes: Kojo lynn 1-06 (Same as: l 23:00: Apresoline [place] 00 ) May interfere w/enteral feedings Take [...] not exceed l #3 21:51: 4gm/day of [place] 00 acetaminop hen. (Same as: Tylenol with Codeine # 3) acetaminoph 2018-10 No Notes: Do M emoria en-codeine - not exceed l #3 21:51: 4gm/day of [place] 00 acetaminop hen. (Same as: Tylenol with Codeine # 3) acetaminoph 2018-10 No Notes: Do M emoria en-codeine - not exceed l #3 21:51: 4gm/day of [place] 00 acetaminop hen. (Same as: Tylenol with Codeine # 3) acetaminoph 2018-10 No Notes: Do M emoria en-codeine - not exceed l #3 21:51: 4gm/day of [place] acetaminop hen. (Same as: Tylenol with Codeine # 3) Dextrose 2018-10 No 12.5 gm, Memor ia 50% Syringe 10-14 25 mL, l 21:47: Route: IVP, Drug Form: INJ, Dosing Weight 100.17, kg, PRN, PRN Blood Glucose Results, Start date: 08/14/19 15:47:00 GAS BRAZER, Duration: 30 day, Stop date: 09/13/19 15:46:00 GAS BRAZER, 0 Glucagon 2018-10 No 1 mg, Memoria 10-14 Route: IM, l 21:47: Drug form: PDR/INJ, PRN, Dosing Weight 100.17, kg, PRN Blood Glucose Results, Start date: 08/14/19 15:47:00 GAS BRAZER, Duration: 30 day, Stop date: 09/13/19 15:46:00 GAS BRAZER, 0 Ondansetron 2018-10 No Notes: Kojo lynn [...] Blood Glucose Results, Start date: 08/14/19 15:47:00 GAS BRAZER, Duration: 30 day, Stop date: 09/13/19 15:46:00 GAS BRAZER, 0 Glucagon 2018-10 No 1 mg, Memoria 10-14 Route: IM, l 21:47: Drug form: [place] 00 PDR/INJ, PRN, Dosing Weight 100.17, kg, PRN Blood Glucose Results, Start date: 08/14/19 15:47:00 GAS BRAZER, Duration: 30 day, Stop date: 09/13/19 15:46:00 GAS BRAZER, 0 Ondansetron 2018-10 No Notes: Kojo lynn [...] Blood Glucose Results, Start date: 08/14/19 15:47:00 GAS BRAZER, Duration: 30 day, Stop date: 09/13/19 15:46:00 GAS BRAZER, 0 Glucagon 2018-10 No 1 mg, Memoria 10-14 Route: IM, l 21:47: Drug form: [place] 00 PDR/INJ, PRN, Dosing Weight 100.17, kg, PRN Blood Glucose Results, Start date: 08/14/19 15:47:00 GAS BRAZER, Duration: 30 day, Stop date: 09/13/19 15:46:00 GAS BRAZER, 0 Ondansetron 2018-10 No Notes: Kojo lynn 10-14 (Same as: l 21:47: Zofran) [place] 00 MEDICATION WASTE Product Size: 4 mg Product Wasted: ___ mg Acetaminoph 2018-10 No Notes: Do M emoria en 10-14 not exceed l 21:47: 4 gm/day. (Same as: Tylenol) Dextrose 2018-10 No 12.5 gm, Memor ia 50% Syringe 10-14 25 mL, l 21:47: Route: 00 IVP, Drug Form: INJ, Dosing Weight 100.17, kg, PRN, PRN Blood Glucose Results, Start date: 08/14/19 15:47:00 GAS BRAZER, Duration: 30 day, Stop date: 09/13/19 15:46:00 GAS BRAZER, 0 Glucagon 2018-10 No 1 mg, Memoria 10-14 Route: IM, l 21:47: Drug form: PDR/INJ, PRN, Dosing Weight 100.17, kg, PRN Blood Glucose Results, Start date: 08/14/19 15:47:00 GAS BRAZER, Duration: 30 day, Stop date: 09/13/19 15:46:00 GAS BRAZER, 0 Ondansetron 2018-10 No Notes: Kojo lynn [...] l oral tablet 20:48: BID, # 180 00 tab, 0 Refill(s) Hydroxyzine 2018-10 Yes 25 mg = 1 M emoria Hydrochlori 06 tab, PO, l de 25 MG 20:48: TID, 0 Marlo Oral Tablet 00 Refill(s) furosemide 2018-10 No 80 mg = 1 Me moria 80 mg oral 06 tab, PO, l tablet 20:48: TID, 0 [place] 00 Refill(s) acetaminoph 2018-10 Yes 1 tab, PO, Memoria en-codeine 06 Q6H, PRN l #3 20:48: Pain Score [place] 00 4-6, 0 Refill(s) Amlodipine 2018-10 No 1 cap, PO, M emoria 10 MG / 06 TID, 0 l Benazepril 20:48: Refill(s) He rmann hydrochlori 00 de 20 MG Oral Capsule carvedilol 2018-10 No 6.25 mg = Me moria 6.25 mg 10-14 1 tab, PO, l oral tablet 20:48: BID, # 180 [place] 00 tab, 0 Refill(s) Hydroxyzine 2018-10 Yes 25 mg = 1 M emoria Hydrochlori 06 tab, PO, l de 25 MG 20:48: TID, 0 [place] Oral Tablet 00 Refill(s) furosemide 2018-10 No 80 mg = 1 Me moria 80 mg oral 06 tab, PO, l tablet 20:48: TID, 0 [place] 00 Refill(s) acetaminoph 2018-10 Yes 1 tab, PO, Memoria en-codeine 10-14 Q6H, PRN l #3 20:48: Pain Score [place] 00 4-6, 0 Refill(s) Amlodipine 2018-10 No [...] l de 25 MG 20:48: TID, 0 [place] Oral Tablet 00 Refill(s) furosemide 2018-10 No 80 mg = 1 Me moria 80 mg oral -06 tab, PO, l tablet 20:48: TID, 0 [place] 00 Refill(s) acetaminoph 2018-10 Yes 1 tab, PO, Memoria en-codeine 10-14 Q6H, PRN l #3 20:48: Pain Score [place] 00 4-6, 0 Refill(s) Amlodipine 2018-10 No [...] tab, PO, l tablet 20:19: Daily, # [place] 00 30 tab, 0 Refill(s), Pharmacy: [facility] #[id number] doxycycline Yes 100 mg = 1 Memoria hyclate 100 7-01 cap, PO, l MG Oral 20:19: Q12H, X 5 [place] nn Capsule 00 day, # 10 cap, 0 Refill(s), Pharmacy: [facility] #[id number] lisinopril Yes 20 mg = 1 Me moria 20 mg oral 7-01 tab, PO, l tablet 20:19: Daily, # [place] 00 30 tab, 0 Refill(s), Pharmacy: [facility] #[id number] doxycycline Yes 100 mg = 1 Memoria hyclate 100 7-01 cap, PO, l MG Oral 20:19: Q12H, X 5 [place] nn Capsule 00 day, # 10 cap, 0 Refill(s), Pharmacy: [facility] #[id number] lisinopril Yes 20 mg = 1 Me moria 20 mg oral 7-01 tab, PO, l tablet 20:19: Daily, # [place] 00 30 tab, 0 Refill(s), Pharmacy: [facility] [...] Dissolve l 14:36: in 8 oz of [place] 00 water or juice. (Same as: Miralax) Miralax No Notes: Memoria 7-01 Dissolve l 14:36: in 8 oz of [place] 00 water or juice. (Same as: Miralax) Miralax No Notes: Memoria 7-01 Dissolve l 14:36: in 8 oz of [place] 00 water or juice. (Same as: Miralax) Miralax No Notes: Memoria 7-01 Dissolve l 14:36: in 8 oz of [place] 00 water or juice. (Same as: Miralax) tamsulosin No Notes: Memor ia 6-30 (Same As: l 02:00: Flomax) "Do Not Crush" atorvastati No Notes: Kojo lynn n 6-30 (Same as: l 02:00: Lipitor) tamsulosin No Notes: Memor ia 6-30 (Same As: l 02:00: Flomax) "Do Not Crush" atorvastati No Notes: Kojo lynn n 6-30 (Same as: l 02:00: Lipitor) tamsulosin 2018-0 No Notes: Memor ia 6-30 (Same As: l 02:00: Flomax) [place] 00 "Do Not Crush" atorvastati No Notes: Kojo lynn n 6-30 (Same as: l 02:00: Lipitor) [place] 00 tamsulosin No Notes: Memor ia 6-30 (Same As: l 02:00: Flomax) [place] 00 "Do Not Crush" atorvastati No Notes: Kojo lynn n 6-30 (Same as: l 02:00: Lipitor) Zithromax + No 500 mg, Mem oria Sodium 04-06 Route: l Chloride 22:00: IVPB, [place] 0.9% IV 250 00 [id number], mL Dosing Weight 102.273, kg, Start date: 04/06/19 17:00:00 CDT, Duration: 7 day, Stop date: 04/12/19 17:00:00 CDT, ABX Indication : Pneumonia, 0 Hydralazine 0 No Notes: Kojo lynn 6-29 (Same as: l 22:00: Apresoline ) May interfere w/enteral feedings Take With Food Lasix No Notes: Memoria 6-29 (Same as: l 22:00: Lasix) February cause GI upset. Give with food or milk. Zithromax + No 500 mg, Mem oria Sodium 04-06 Route: l Chloride 22:00: IVPB, [place] 0.9% IV 250 00 [id number], mL Dosing Weight 102.273, kg, Start date: 04/06/19 17:00:00 CDT, Duration: 7 day, Stop date: 04/12/19 17:00:00 CDT, ABX Indication : Pneumonia, 0 Hydralazine 2018-0 No Notes: Kojo lynn 6-29 (Same as: l 22:00: Apresoline [place] 00 ) May interfere w/enteral feedings Take With Food Lasix No Notes: Memoria 6-29 (Same as: l 22:00: Lasix) February cause GI upset. Give with food or milk. Zithromax + No 500 mg, Mem oria Sodium 04-06 Route: l Chloride 22:00: IVPB, [place] 0.9% IV 250 00 [id number], mL Dosing Weight 102.273, kg, Start date: 04/06/19 17:00:00 CDT, Duration: 7 day, Stop date: 04/12/19 17:00:00 CDT, ABX Indication : Pneumonia, 0 Hydralazine No Notes: Kojo lynn 6-29 (Same as: l 22:00: Apresoline [place] ) May interfere w/enteral feedings Take With Food Lasix No Notes: Memoria 6-29 (Same as: l 22:00: Lasix) February [place] 00 cause GI upset. Give with food or milk. Zithromax + No 500 mg, Mem oria Sodium 04-06 Route: l Chloride 22:00: IVPB, [place] 0.9% IV 250 00 [id number], mL Dosing Weight 102.273, kg, Start date: 04/06/19 17:00:00 CDT, Duration: 7 day, Stop date: 04/12/19 17:00:00 CDT, ABX Indication : Pneumonia, 0 Hydralazine No Notes: Kojo lynn 6-29 (Same as: l 22:00: Apresoline [place] ) May interfere w/enteral feedings Take With [...] (Same as: l oral 19:00: Adalat CC, [place] tablet, 00 Procardia extended XL) Give release [...] With food l Tablet 18:22: or milk [place] [Xanax] 00 (Same as: Xanax) Alprazolam No Notes: Memor ia 2 MG Oral 6-29 With food l Tablet 18:22: or milk [place] [Xanax] 00 (Same as: Xanax) Alprazolam No Notes: Memor ia 2 MG Oral 6-29 With food l Tablet 18:22: or milk [place] [Xanax] 00 (Same as: Xanax) Hydralazine No Notes: Kojo lynn 6-29 (Same as: l 18:21: Apresoline [place] ) Push over 5 minutes Hydralazine No Notes: Kojo lynn 6-29 (Same as: l 18:21: Apresoline [place] ) Push over 5 minutes Hydralazine No Notes: Kojo lynn 6-29 (Same as: l 18:21: Apresoline [place] ) Push over 5 minutes Hydralazine No Notes: Kojo lynn 6-29 (Same as: l 18:21: Apresoline [place] ) Push over 5 minutes benazepril No [...] 6-29 Route: PO, l 14:00: Drug form: [place] 00 TAB, Daily, Dosing Weight 100.17, kg, Start date: 04/06/19 9:00:00 CDT, Duration: 30 day, Stop date: 05/05/19 9:00:00 CDT Saline No Notes: Memoria Flush 0.9% 6-29 preservati l 14:00: ve free. [place] 00 heparin No Notes: Memoria 6-29 porcine l 14:00: heparin benazepril No 20 mg, Memor ia 6-29 Route: PO, l 14:00: Drug form: [place] 00 TAB, Daily, Dosing Weight 100.17, kg, [...] ia 6-29 (Same as: l 08:57: Prinivil, [place] 00 Zestril) lisinopril No Notes: Memor ia 6-29 (Same as: l 08:57: Prinivil, [place] 00 Zestril) lisinopril No Notes: Memor ia 6-29 (Same as: l 08:57: Prinivil, [place] 00 Zestril) lisinopril No Notes: Memor ia 6-29 (Same as: l 08:57: Prinivil, [place] 00 Zestril) Amlodipine No Notes: Memor ia 6-29 (Same as: l 08:56: Norvasc) Amlodipine No Notes: Memor ia 6-29 (Same as: l 08:56: Norvasc) Amlodipine No Notes: Memor ia 6-29 (Same as: l 08:56: Norvasc) [place] 00 Amlodipine No Notes: Memor ia 6-29 (Same as: l 08:56: Norvasc) [place] 00 carvedilol No Notes: Memor ia 6-29 Give with l 04:30: food. [place] 00 (Same As: Coreg) Hydralazine No Notes: Kojo lynn 6-29 (Same as: l 04:30: Apresoline [place] ) May interfere w/enteral feedings Take With Food carvedilol No Notes: Memor ia 6-29 Give with l 04:30: food. [place] 00 (Same As: Coreg) Hydralazine No Notes: Kojo lynn 6-29 (Same as: l 04:30: Apresoline [place] ) May interfere w/enteral feedings Take With Food carvedilol No Notes: Memor ia 6-29 Give with l 04:30: food. [place] 00 (Same As: Coreg) Hydralazine No Notes: Kojo lynn 6-29 (Same as: l 04:30: Apresoline [place] ) May interfere w/enteral feedings Take With Food carvedilol No Notes: Memor ia 6-29 Give with l 04:30: food. 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, Drug form: MISC, Route: MISC, ONCALL, 04/05/19 23:00:00 CDT, Duration: 30 day, Stop date: 05/05/19 22:59:00 CDT, 0 height 2019-0 No height Memoria weight 6-29 weight l allergies 04:00: allergies, He rmann 00 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 Zithromax 2019-0 No 500 mg, Memor ia 6-29 Route: l 03:00: IVPB, [place] 00 [id number], Dosing Weight 102.273, kg, Start date: 04/05/19 22:00:00 CDT, Duration: 7 day, Stop date: 04/11/19 22:00:00 CDT, ABX Indication : Pneumonia Ceftriaxone 2019-0 No 1 gm, Memor ia 6-29 Route: l 03:00: IVPB, [place] 00 [id number], Dosing Weight 102.273, kg, Start date: 04/05/19 22:00:00 CDT, Duration: 7 day, Stop date: 04/11/19 22:00:00 CDT, ABX Indication : Pneumonia Aspirin 325 2019-0 No Notes: (Do Memoria MG Enteric 6-29 Not Crush) l Coated 03:00: Do not [place] Tablet 00 crush or chew. Zithromax 2019-0 No 500 mg, Memor ia 6-29 Route: l 03:00: IVPB, [place] 00 [id number], Dosing Weight 102.273, kg, Start date: 04/05/19 22:00:00 CDT, Duration: 7 day, Stop date: 04/11/19 22:00:00 CDT, ABX Indication : Pneumonia Ceftriaxone 2019-0 No 1 gm, Memor ia 6-29 Route: l 03:00: IVPB, [place] 00 [id number], Dosing Weight 102.273, kg, Start date: 04/05/19 22:00:00 CDT, Duration: 7 day, Stop date: 04/11/19 22:00:00 CDT, ABX Indication : Pneumonia Aspirin 325 2019-0 No Notes: (Do Memoria MG Enteric 6-29 Not Crush) l Coated 03:00: Do not [place] Tablet 00 crush or chew. Zithromax 2019-0 No 500 mg, Memor ia 6-29 Route: l 03:00: IVPB, [place] 00 [id number], Dosing Weight 102.273, kg, Start date: 04/05/19 22:00:00 CDT, Duration: 7 day, Stop date: 04/11/19 22:00:00 CDT, ABX Indication : Pneumonia Ceftriaxone 2019-0 No 1 gm, Memor ia 6-29 Route: l 03:00: IVPB, [place] 00 [id number], Dosing Weight 102.273, kg, Start date: 04/05/19 22:00:00 CDT, Duration: 7 day, Stop date: 04/11/19 22:00:00 CDT, ABX Indication : Pneumonia Aspirin 325 2019-0 No Notes: (Do Memoria MG Enteric 6-29 Not Crush) l Coated 03:00: Do not [place] Tablet 00 crush or chew. Zithromax 2019-0 No 500 mg, Memor ia 6-29 Route: l 03:00: IVPB, [place] 00 [id number], Dosing Weight 102.273, kg, Start date: 04/05/19 22:00:00 CDT, Duration: 7 day, Stop date: 04/11/19 22:00:00 CDT, ABX Indication : Pneumonia Ceftriaxone 2019-0 No 1 gm, Memor ia 6-29 Route: l 03:00: IVPB, [place] 00 [id number], Dosing Weight 102.273, kg, Start date: 04/05/19 22:00:00 CDT, Duration: 7 day, Stop date: 04/11/19 22:00:00 CDT, ABX Indication : Pneumonia Glucagon 2019- No 1 mg, Memoria 6 Route: IM, l 02:03: Drug form: [place] PDR/INJ, PRN, Dosing Weight 102.273, kg, PRN [...] Dulcolax, Bisco-Lax) Ondansetron No Notes: Kojo lynn -29 [...] 04-06 Route: IM, l 02:03: Drug form: [place] 00 PDR/INJ, PRN, Dosing Weight 102.273, kg, PRN Blood Glucose Results, Start date: 04/05/19 21:03:00 CDT, Duration: 30 day, Stop date: 05/05/19 21:02:00 CDT, 0 Bisacodyl No Notes: Memori a - (Same As: l 02:03: Dulcolax, Bisco-Lax) Ondansetron No Notes: Kojo lynn 04-06 (Same as: l 02:03: Zofran) MEDICATION WASTE [...] 04-06 Route: IM, l 02:03: Drug form: [place] 00 PDR/INJ, PRN, Dosing Weight 102.273, kg, PRN Blood Glucose Results, Start date: 04/05/19 21:03:00 CDT, Duration: 30 day, Stop date: 05/05/19 21:02:00 CDT, 0 Bisacodyl No Notes: Memori a 6-29 (Same As: l 02:03: Dulcolax, Bisco-Lax) Ondansetron No Notes: Kojo lynn 04-06 (Same as: l 02:03: Zofran) MEDICATION WASTE [...] - not exceed l 02:02: 4 gm/day. [place] 00 (Same as: Tylenol) Saline No Notes: Memoria Flush 0.9% 6-29 preservati l 02:02: ve free. [place] 00 Acetaminoph No Notes: Do M emoria en 04-06 not exceed l 02:02: 4 gm/day. [place] 00 (Same as: Tylenol) Saline No Notes: Memoria Flush 0.9% 6-29 preservati l 02:02: ve free. [place] 00 Acetaminoph No Notes: Do M emoria en 04-06 not exceed l 02:02: 4 gm/day. [place] 00 (Same as: Tylenol) Hydromorpho No Notes: Kojo lynn ne 04-06 Same as: l 01:54: Dilaudid [place] 00 Tramadol No Notes: Not Mem oria - to exceed l 01:54: 400mg/day. [place] 00 (Same As: Ultram) Hydromorpho No Notes: Kojo lynn ne 04-06 Same as: l 01:54: Dilaudid [place] Tramadol No Notes: Not Mem oria 6- to exceed l 01:54: 400mg/day. [place] 00 (Same As: Ultram) Hydromorpho No Notes: Kojo lynn ne 04-06 Same as: l 01:54: Dilaudid [place] Tramadol No Notes: Not Mem oria 6- to exceed l 01:54: 400mg/day. [place] 00 (Same As: Ultram) Hydromorpho No Notes: Kojo lynn ne 04-06 Same as: l 01:54: Dilaudid [place] 00 Tramadol No Notes: Not Mem oria 6-29 to exceed l 01:54: 400mg/day. [place] 00 (Same As: Ultram) NIFEdipine 2017-10 Yes 60 mg = 1 Me moria 60 mg oral 0-16 tab, PO, l tablet, 17:27: Daily, # [place] n extended 00 30 tab, 0 release Refill(s), Pharmacy: [facility] #[id number] NIFEdipine 2017-10 Yes 60 mg = 1 [...] 0-16 unit, 10 l 15:21: mL, Route: [place] 00 DIALYSIS, Drug form: INJ, ONCALL, Dosing [...] Memoria 0-15 (Same as: l 19:17: Dilaudid) [place] 00 Dilaudid 2017-10 No Notes: Memoria 0-15 (Same [...] 0-15 unit, 10 l 13:00: mL, Route: [place] 00 DIALYSIS, Drug form: INJ, ONCALL, Dosing Weight 102.273, kg, Start date: 07/23/18 8:00:00 CDT, Duration: 1 doses or times heparin 2017-10 No 10,000 Memoria 0-15 unit, 10 l 13:00: mL, Route: [place] 00 DIALYSIS, Drug form: INJ, ONCALL, Dosing [...] Duration: 30 day, Stop date: 08/20/18 21:00:00 GAS BRAZER tamsulosin 2017- No Notes: Memor ia 0-15 (Same As: l 02:00: Flomax) [place] 00 "Do Not Crush" zolpidem 2017- No 10 mg, Memoria 0-15 Route: PO, l 02:00: Drug form: [place] 00 TAB, Bedtime, Dosing Weight 102.273, kg, Start date: 07/22/18 21:00:00 CDT, Duration: 30 day, Stop date: 08/20/18 21:00:00 GAS BRAZER tamsulosin 2018-1 No Notes: Memor ia 0-15 (Same As: l 02:00: Flomax) [place] 00 "Do Not Crush" zolpidem 2017- No 10 mg, Memoria 0-15 Route: PO, l 02:00: Drug form: [place] 00 TAB, Bedtime, Dosing Weight 102.273, kg, Start date: 07/22/18 21:00:00 CDT, Duration: 30 day, Stop date: 08/20/18 21:00:00 GAS BRAZER tamsulosin 2017-10 No Notes: Memor ia 0-15 (Same As: l 02:00: Flomax) [place] 00 "Do Not Crush" zolpidem 2017-10 No 10 mg, Memoria 0-15 Route: PO, l 02:00: Drug form: [place] 00 TAB, Bedtime, Dosing Weight 102.273, kg, Start date: 07/22/18 21:00:00 CDT, Duration: 30 day, Stop date: 08/20/18 21:00:00 GAS BRAZER tamsulosin 2017-10 No Notes: Memor ia 0-15 (Same As: l 02:00: Flomax) [place] 00 "Do Not Crush" NIFEdipine 2017-10 No [...] 0-14 (Same as: l 14:00: Lasix) May [place] 00 cause GI upset. Give with food or milk. carvedilol 2017-10 No Notes: Memor ia 0-14 Give with l 14:00: food. [place] 00 (Same As: Coreg) calcium 2017-10 No Notes: Memoria acetate 667 0-14 Same as l MG Oral 14:00: Phoslo Gel Herm dionne Capsule 00 Cap Amlodipine 2017-10 No Notes: Memor ia 0-14 (Same as: l 14:00: Norvasc) [place] 00 Docusate 2017-10 No Notes: Memoria 0-14 (Same as: l 14:00: Colace) [place] 00 (Do Not Crush) NIFEdipine 2017-10 No [...] 0-14 (Same as: l 14:00: Lasix) May [place] 00 cause GI upset. Give with food or milk. carvedilol 2017-10 No Notes: Memor ia 0-14 Give with l 14:00: food. [place] 00 (Same As: Coreg) calcium 2017-10 No Notes: Memoria acetate 667 0-14 Same as l MG Oral 14:00: Phoslo Gel Herm dionne Capsule 00 Cap Amlodipine 2017-10 No Notes: Memor ia 0-14 (Same as: l 14:00: Norvasc) [place] 00 Docusate 2017-10 No Notes: Memoria 0-14 [...] n 0-14 (Same l 14:00: as:One Tab [place] 00 Daily, Tab-A-Conor + Beta Carotene) Give [...] ia 0-14 Give with l 14:00: food. [place] 00 (Same As: Coreg) calcium 2017-10 No [...] 0-14 (Same as: l 14:00: Lasix) May [place] 00 cause GI upset. Give with food [...] Instructio l MG Oral 11:45: ns, 0 [place] Capsule 00 Refill(s) Hydralazine 2017-10 Yes 50 [...] Memoria 0-14 TID, 0 l 11:45: Refill(s) [place] 00 Amlodipine 2017-10 Yes 1 cap, PO, [...] Memoria 0-14 TID, 0 l 11:45: Refill(s) [place] 00 Amlodipine 2017-10 Yes 1 cap, PO, [...] Instructio l MG Oral 11:45: ns, 0 [place] Capsule 00 Refill(s) Hydralazine 2017-10 Yes 50 mg, PO, Memoria 0-14 TID, 0 l 11:45: Refill(s) [place] 00 Amlodipine 2017-10 Yes 1 cap, PO, [...] With food l Tablet 11:31: or milk [place] [Xanax] 00 (Same as: Xanax) Hydroxyzine 2017-10 [...] With food l Tablet 11:31: or milk [place] [Xanax] 00 (Same as: Xanax) Dilaudid 2017-10 No Notes: Memoria 0-14 Same as: l 11:27: Dilaudid [place] 00 Dilaudid 2017-10 No Notes: Memoria 0-14 Same as: l 11:27: Dilaudid [place] 00 Dilaudid 2017-10 No Notes: Memoria 0-14 Same as: l 11:27: Dilaudid [place] 00 Dilaudid 2017-10 No Notes: Memoria 0-14 [...] Memoria 0-14 Route: l 09:04: IVP, ONCE, [place] 00 Dosing Weight 96.7, kg, Priority: STAT, Start date: 07/22/18 4:04:00 CDT, Stop date: 07/22/18 4:04:00 CDT Dilaudid 2017- No 1 mg, Memoria 0-14 Route: l 09:04: IVP, ONCE, [place] 00 Dosing Weight 96.7, kg, Priority: STAT, Start date: 07/22/18 4:04:00 CDT, Stop date: 07/22/18 4:04:00 CDT Dilaudid 2017-10 No 1 mg, Memoria 0-14 Route: l 07:16: IVP, ONCE, Dosing Weight 96.7, kg, Priority: STAT, Start date: 07/22/18 2:16:00 CDT, Stop date: 07/22/18 2:16:00 CDT Dilaudid 2017- No 1 mg, Memoria 0-14 Route: l [...] Memoria 0-14 (Same as: l 05:43: Osmitrol) [place] 00 Infuse through 5 micron or smaller [...] Duration: 30 day, Stop date: 08/21/18 0:42:00 GAS BRAZER, 2.16, m2 Mannitol 2017-10 No Notes: Memoria 0-14 (Same as: l 05:43: Osmitrol) [place] 00 Infuse through 5 micron or smaller [...] Duration: 30 day, Stop date: 08/21/18 0:42:00 GAS BRAZER, 2.16, m2 Mannitol 2017-10 No Notes: Memoria [...] Duration: 30 day, Stop date: 08/21/18 0:42:00 GAS BRAZER, 2.16, m2 Mannitol 2017-10 No Notes: Memoria [...] Duration: 30 day, Stop date: 08/21/18 0:42:00 GAS BRAZER, 2.16, m2 Acetaminoph 2017-10 No Notes: Do M emoria en 0-14 not exceed l 05:22: 4 gm/day. [place] 00 (Same as: Tylenol) Morphine 2017-10 No Notes: Memoria 0-14 Preservati l 05:22: ve free. [place] 00 (Same as: Morphine Sulfate-PF ) Ondansetron [...] 0-14 not exceed l 05:22: 4 gm/day. [place] 00 (Same as: Tylenol) Morphine 2017-10 No Notes: Memoria 0-14 Preservati l 05:22: ve free. [place] 00 (Same as: Morphine Sulfate-PF ) Ondansetron 2017-10 No Notes: Kojo lynn 0-14 (Same as: l 05:22: Zofran) [place] 00 MEDICATION WASTE Product Size: 4 mg Product Wasted: ___ mg Acetaminoph 2017-10 No Notes: Do M emoria en 0-14 not exceed l 05:22: 4 gm/day. [place] 00 (Same as: Tylenol) Morphine 2017-10 No Notes: Memoria 0-14 Preservati l 05:22: ve free. [place] 00 (Same as: Morphine Sulfate-PF ) Ondansetron 2017-10 No Notes: Kojo lynn 0-14 (Same as: l 05:22: Zofran) [place] 00 MEDICATION WASTE Product Size: 4 mg Product Wasted: ___ mg Dilaudid 2017-10 No Notes: Memoria 0-14 Same as: l 05:07: Dilaudid [place] 00 Dilaudid 2017-10 No Notes: Memoria 0-14 Same as: l 05:07: Dilaudid [place] 00 Dilaudid 2017-10 No Notes: Memoria 0-14 Same as: l 05:07: Dilaudid [place] 00 Dilaudid 2017-10 No Notes: Memoria 0-14 Same as: l 05:07: Dilaudid [place] 00 Zofran 2017-10 No Notes: Memoria 0-14 [...] Memoria 0-14 Same as: l 04:46: Dilaudid [place] 00 Dilaudid 2017-10 No Notes: Memoria 0-14 Same as: l 04:46: Dilaudid [place] 00 Dilaudid 2017-10 No Notes: Memoria 0-14 Same as: l 04:46: Dilaudid [place] 00 Dilaudid 2017-10 No Notes: Memoria 0-14 Same as: l 04:46: Dilaudid [place] 00 Hydromorpho 2017-10 No Notes: Kojo lynn ne 0-14 Same as: l 04:13: Dilaudid [place] 00 Hydromorpho 2017-10 No Notes: Kojo lynn ne 0-14 Same as: l 04:13: Dilaudid [place] 00 Hydromorpho 2017-10 No Notes: Kojo lynn ne 0-14 Same as: l 04:13: Dilaudid [place] 00 Hydromorpho 2017-10 No Notes: Kojo lynn ne 0-14 Same as: l 04:13: Dilaudid [place] 00 Saline 2017-10 No Notes: Memoria Flush 0.9% 0-14 (Same as: l 02:24: BD [place] 00 Posiflush) Saline 2017-10 No Notes: Memoria Flush 0.9% 0-14 (Same as: l 02:24: BD [place] 00 Posiflush) Saline 2017-10 No Notes: Memoria Flush 0.9% 0-14 (Same as: l 02:24: BD [place] 00 Posiflush) Saline 2017-10 No Notes: Memoria Flush 0.9% 0-14 (Same as: l 02:24: BD [place] 00 Posiflush) lactulose 2017-10 No = 1 [...] Memor ia 0-12 (sodium l 23:39: polystyren [place] 00 e sulfonate 15 gm/60 ml CANDACE) Shake well before use. (Same as: Kayexalate , SPS) Kayexalate 2017-10 No Notes: Memor ia 0-12 (sodium l 23:39: polystyren [place] 00 e sulfonate 15 gm/60 ml CANDACE) Shake well before use. (Same as: Kayexalate , SPS) Kayexalate 2017-10 No Notes: Memor ia 0-12 (sodium l 23:39: polystyren [place] 00 e sulfonate 15 gm/60 ml CANDACE) [...] tab, PO, l Tablet 16:49: PRN, 0 [place] 00 Refill(s) amLODIPine Yes 10 mg = 1 Me moria 10 mg oral 8-14 tab, PO, l tablet 16:49: Daily, 0 [place] 00 Refill(s) Ascorbic Yes 1 tab, PO, [...] tab, PO, l Tablet 16:49: PRN, 0 [place] 00 Refill(s) amLODIPine Yes 10 mg = 1 Me moria 10 mg oral 8-14 tab, PO, l tablet 16:49: Daily, 0 [place] 00 Refill(s) Ascorbic Yes 1 tab, PO, [...] tab, PO, l Tablet 16:49: PRN, 0 [place] 00 Refill(s) amLODIPine Yes 10 mg = 1 Me moria 10 mg oral 8-14 tab, PO, l tablet 16:49: Daily, 0 [place] 00 Refill(s) Ascorbic Yes 1 tab, PO, [...] tab, PO, l Tablet 16:49: PRN, 0 [place] 00 Refill(s) amLODIPine Yes 10 mg = 1 Me moria 10 mg oral 8-14 tab, PO, l tablet 16:49: Daily, 0 [place] 00 Refill(s) tamsulosin No Notes: Memor ia 04-16 (Same As: l 02:00: Flomax) [place] 00 "Do Not Crush" tamsulosin 2018-0 No Notes: Memor ia 04-16 (Same As: l 02:00: Flomax) [place] 00 "Do Not Crush" tamsulosin 2018-0 No Notes: Memor ia 04-16 (Same As: l 02:00: Flomax) [place] 00 "Do Not Crush" tamsulosin 2018-0 No Notes: Memor ia 04-16 (Same As: l 02:00: Flomax) [place] 00 "Do Not Crush" Hydralazine 2018-0 Yes 50 mg = 1 [...] 3.125 mg = M emoria 3.125 mg - 1 tab, PO, l oral tablet 20:33: Q12H, # 60 [place] 00 tab, 0 Refill(s) Hydralazine 2018-0 Yes [...] 00 30 tab, 0 release Refill(s) carvedilol 2018- Yes 3.125 mg = M emoria 3.125 mg 7-08 1 tab, PO, l oral tablet 20:33: Q12H, # 60 [place] 00 tab, 0 Refill(s) Hydralazine Yes 50 mg = 1 M emoria Hydrochlori 7-08 tab, PO, l de 50 MG 20:33: TID, # 90 Herm dionne Oral Tablet 00 tab, 0 Refill(s) NIFEdipine 2018 Yes 60 mg = 1 Me moria 60 mg oral 7-08 tab, PO, l tablet, 20:33: Daily, # Rafael n extended 00 30 tab, 0 release Refill(s) carvedilol Yes 3.125 mg = M emoria 3.125 mg 7-08 1 tab, PO, l oral tablet 20:33: Q12H, # 60 [place] 00 tab, 0 Refill(s) Potassium No Notes: Memori a Chloride -08 (Same as: l 20:22: K-Dur 20) [place] 00 "Do Not Crush" For patients unable to swallow tablet, dissolve in one half glass of water. Allow about 2 minutes for the tablets to disintegra te. Stir before giving to prepare slurry and administer . Please exclude Patient s with feeding tube less than 14 Turkmen (Dobhoff, J-tube etc) and pediatric and patients. With food and full glass of water Potassium No Notes: Memori a Chloride 7-08 (Same as: l 20:22: K-Dur 20) [place] 00 "Do Not Crush" For patients unable to swallow tablet, dissolve in one half glass of water. Allow about 2 minutes for the tablets to disintegra te. Stir before giving to prepare slurry and administer . Please exclude Patient s with feeding tube less than 14 Turkmen (Dobhoff, J-tube etc) and pediatric and patients. With food and full glass of water Potassium 0 No Notes: Memori a Chloride 7-08 (Same as: l 20:22: K-Dur 20) [place] 00 "Do Not Crush" For patients unable to swallow tablet, dissolve in one half glass of water. Allow about 2 minutes for the tablets to disintegra te. Stir before giving to prepare slurry and administer . Please exclude Patient s with feeding tube less than 14 Turkmen (Dobhoff, J-tube etc) and pediatric and patients. With food and full glass of water Potassium No Notes: Memori a Chloride 04-15 (Same as: l 20:22: K-Dur 20) [place] 00 "Do Not Crush" For patients unable to swallow tablet, dissolve in one half glass of water. Allow about 2 minutes for the tablets to disintegra te. Stir before giving to prepare slurry and administer . Please exclude Patient s with feeding tube less than 14 [place] (Dobhoff, J-tube etc) and pediatric and patients. With food and full glass of water Hydralazine No Notes: Kojo lynn Hydrochlori 04-15 (Same as: l de 25 MG 14:00: Apresoline Her meeks Oral Tablet 00 ) May interfere w/enteral feedings Take With Food. Lasix No Notes: Memoria 04-15 (Same as: l 14:00: Lasix) May Marlo [...] ia 7-08 Give with l 14:00: food. [place] 00 (Same As: Coreg) calcium No Notes: Memoria acetate 667 7-08 Same as l MG Oral 14:00: Phoslo Gel Herm dionne Capsule 00 Cap Amlodipine No Notes: Memor ia 7-08 (Same as: l 14:00: Norvasc) [place] 00 Hydralazine No Notes: Kojo lynn Hydrochlori 04-15 (Same as: l de 25 MG 14:00: Apresoline Her meeks Oral Tablet 00 ) May interfere w/enteral feedings Take With Food. Lasix No Notes: Memoria 7-08 (Same as: l 14:00: Lasix) February cause GI upset. Give with [...] ia 7-08 (Same as: l 14:00: Norvasc) Hydralazine No Notes: Kojo lynn Hydrochlori 7-08 (Same as: l de 25 MG 14:00: Apresoline Her meeks Oral Tablet 00 ) May interfere w/enteral feedings Take With Food. Lasix No Notes: Memoria 7-08 (Same as: l 14:00: Lasix) February cause GI upset. Give with [...] ia 7-08 (Same as: l 14:00: Norvasc) [place] 00 Hydralazine No Notes: Kojo lynn Hydrochlori -08 (Same as: l de 25 MG 14:00: Apresoline Her meeks Oral Tablet 00 ) May interfere w/enteral feedings Take With Food. Lasix No Notes: Memoria 7-08 (Same as: l 14:00: Lasix) [place] 00 May cause GI upset. Give with [...] ia 7-08 Give with l 14:00: food. [place] 00 (Same As: Coreg) calcium No Notes: Memoria acetate 667 7-08 Same as l MG Oral 14:00: Phoslo Gel Herm dionne Capsule 00 Cap Amlodipine No Notes: Memor ia 7-08 (Same as: l 14:00: Norvasc) [place] 00 Morphine 2017-0 No 2 mg, 1 Memori a 7-08 mL, Route: l 09:49: IVP, Drug [place] 00 form: SOLN, Q4H, Dosing Weight 87.784, kg, PRN Pain Score 6-10, Start date: 04/15/18 4:49:00 CDT, Duration: 30 day, Stop date: 05/15/18 4:48:00 CDT Morphine 2018-0 No 2 mg, 1 Memori a 7-08 mL, Route: l 09:49: IVP, Drug [place] 00 form: SOLN, Q4H, Dosing Weight 87.784, kg, [...] Memoria 7-08 (Same As: l 08:47: Ambien) [place] 00 Ambien No Notes: Memoria 7-08 (Same As: l 08:47: Ambien) [place] 00 Ambien No Notes: Memoria 7-08 (Same As: l 08:47: Ambien) [place] 00 Ambien No Notes: Memoria 7-08 (Same As: [...] Anxiety, # 40 tab, 0 Refill(s) Insulin 2018-0 No Notes: Memoria Lispro -08 (Same as: l 07:15: Humalog ) [place] 00 Roll in palms of hands gently; Do not shake `vigorousl y. "Single Patient Use Only " WASTE: F/P - Black; E - Municipal Trash Bin Stable for 28 days at room temperatur e. Expires in days from ____Date Dextrose 2018-0 No 25 gm, 50 Kojo lynn 50% Syringe 7-08 mL, Route: l 07:15: IVP, Drug [place] 00 Form: INJ, Dosing Weight 74.091, kg, [...] -08 (Same as: l 07:15: Humalog ) [place] 00 Roll in palms of hands gently; Do not shake `vigorousl y. "Single Patient Use Only " WASTE: F/P - Black; E - Municipal Trash Bin Stable for 28 days at room temperatur e. Expires in days from ____Date Dextrose 2018-0 No 25 gm, 50 Kojo lynn 50% Syringe 7-08 mL, Route: l 07:15: IVP, Drug [place] 00 Form: INJ, Dosing Weight 74.091, kg, PRN, PRN Blood Glucose Results, Start date: 04/15/18 2:15:00 CDT, Duration: 30 day, Stop date: 05/15/18 2:14:00 CDT Glucagon 2018-0 No 1 mg, Memoria 7-08 Route: IM, l 07:15: Drug form: [place] 00 PDR/INJ, PRN, Dosing Weight 74.091, kg, PRN Blood Glucose Results, Start date: 04/15/18 2:15:00 CDT, Duration: 30 day, Stop date: 05/15/18 2:14:00 CDT Insulin 2018-0 No Notes: Memoria Lispro 7-08 (Same as: l 07:15: Humalog ) [place] 00 Roll in palms of hands gently; [...] 04-15 Route: IM, l 07:15: Drug form: [place] 00 PDR/INJ, PRN, Dosing Weight 74.091, kg, PRN Blood Glucose Results, Start date: 04/15/18 2:15:00 CDT, Duration: 30 day, Stop date: 05/15/18 2:14:00 CDT Insulin 2018-0 No Notes: Memoria Lispro -08 (Same as: l 07:15: Humalog ) [place] [...] Ergocalcife 2018-0 No 50,000 Kojo lynn rol [id number] 7-08 IntlUnit, l UNT Oral 07:00: 1 cap, [place] Capsule 00 Route: PO, Drug form: CAP, qWeek, Dosing Weight 74.091, kg, Start date: 04/15/18 2:00:00 CDT, Duration: 30 day, Stop date: 05/13/18 9:00:00 CDT Ergocalcife 2018-0 No 50,000 Kojo lynn rol [id number] 7-08 IntlUnit, l UNT Oral 07:00: 1 cap, [place] Capsule 00 Route: PO, Drug form: CAP, qWeek, Dosing Weight 74.091, kg, Start date: 04/15/18 2:00:00 CDT, Duration: 30 day, Stop date: 05/13/18 9:00:00 CDT Ergocalcife 2018-0 No 50,000 Kojo lynn rol 23243 7-08 IntlUnit, l UNT Oral 07:00: 1 cap, [place] Capsule 00 Route: PO, Drug form: CAP, qWeek, Dosing Weight 74.091, kg, Start date: 04/15/18 2:00:00 CDT, Duration: 30 day, Stop date: 05/13/18 9:00:00 CDT Ergocalcife 2018-0 No 50,000 Kojo lynn rol 44066 7-08 IntlUnit, l UNT Oral 07:00: 1 cap, [place] Capsule 00 Route: PO, Drug form: CAP, qWeek, Dosing Weight 74.091, kg, Start date: 04/15/18 2:00:00 CDT, Duration: 30 day, Stop date: 05/13/18 9:00:00 CDT Alprazolam No Notes: Memor ia 2 MG Oral 7-08 With food l Tablet 06:56: or milk [place] [Xanax] 00 (Same as: Xanax) Alprazolam No Notes: Memor ia 2 MG Oral 7-08 With food l Tablet 06:56: or milk [place] [Xanax] 00 (Same as: Xanax) Alprazolam No Notes: Memor ia 2 MG Oral 7-08 With food l Tablet 06:56: or milk [place] [Xanax] 00 (Same as: Xanax) Alprazolam No [...] IV 7-08 500 ml/hr, l 06:34: Infuse [place] 00 Over: 0.5 hr, Route: IV, 250, [...] IV 7-08 500 ml/hr, l 06:34: Infuse Over: 0.5 hr, Route: IV, 250, Drug form: INJ, ONCE, Priority: STAT, Dosing Weight 74.091 kg, Start date: 04/15/18 1:34:00 CDT, Stop date: 04/15/18 1:34:00 CDT Hydralazine 2018-0 No 10 mg, Kojo lynn 7- Route: l 06:27: IVP, ONCE, Dosing Weight 74.091, kg, Priority: STAT, Start date: 04/15/18 1:27:00 CDT, Stop date: 04/15/18 1:27:00 CDT Hydralazine 2018-0 No 10 mg, Kojo lynn 7-08 Route: l 06:27: IVP, ONCE, Dosing Weight 74.091, kg, Priority: STAT, Start date: 04/15/18 1:27:00 CDT, Stop date: 04/15/18 1:27:00 CDT Hydralazine 2018-0 No 10 mg, Kojo lynn 7- Route: l 06:27: IVP, ONCE, Dosing Weight 74.091, kg, Priority: STAT, Start date: 04/15/18 1:27:00 CDT, Stop date: 04/15/18 1:27:00 CDT Hydralazine 2018-0 No 10 mg, Kojo lynn 7-08 Route: l 06:27: IVP, ONCE, Dosing Weight 74.091, kg, Priority: STAT, Start date: 04/15/18 1:27:00 CDT, Stop date: 04/15/18 1:27:00 CDT Amlodipine 2018-0 No Notes: Memor ia 7-08 (Same as: l 03:50: Norvasc) [place] 00 Hydralazine 2018-0 No Notes: Kojo lynn 7-08 (Same as: l 03:50: Apresoline ) Push over 5 minutes Amlodipine 2018-0 No Notes: Memor ia 7-08 (Same as: l 03:50: Norvasc) [place] 00 Hydralazine 2018-0 No Notes: Kojo lynn 7-08 (Same as: l 03:50: Apresoline [place] 00 ) Push over 5 minutes Amlodipine 2017-0 No Notes: Memor ia 7-08 (Same as: l 03:50: Norvasc) [place] 00 Hydralazine 2017-0 No Notes: Kojo lynn 7-08 (Same as: l 03:50: Apresoline [place] 00 ) Push over 5 minutes Amlodipine 2017-0 No Notes: Memor ia 7-08 (Same as: l 03:50: Norvasc) [place] 00 Hydralazine 2017-0 No Notes: Kojo lynn 7-08 (Same as: l 03:50: Apresoline [place] ) Push over 5 minutes Clonidine 2018-0 [...] 0.9% 7-07 (Same as: l 23:55: BD [place] 00 Posiflush) Saline No Notes: Memoria Flush 0.9% 7-07 (Same as: l 23:55: BD [place] 00 Posiflush) vancomycin No Notes: Memor ia [...] 250 mg per Medical Staff approval cefdinir 2018- Yes 300 mg = 1 Mem oria [...] Refill(s), Pharmacy: [facility] #[id number] heparin 2017-0 No 10,000 Memoria 6-11 unit, 10 l 15:00: mL, Route: [place] DIALYSIS, Drug form: INJ, ONCALL, Dosing Weight 100.455, kg, Start date: 03/19/18 10:00:00 CDT, Duration: 1 doses or times heparin 2017-0 No 10,000 Memoria 6-11 unit, 10 l 15:00: mL, Route: [place] 00 DIALYSIS, Drug form: INJ, ONCALL, Dosing Weight 100.455, kg, Start date: 03/19/18 10:00:00 CDT, Duration: 1 doses or times heparin 2017-0 No 10,000 Memoria 6-11 unit, 10 l 15:00: mL, Route: [place] 00 DIALYSIS, Drug form: INJ, ONCALL, Dosing Weight 100.455, kg, Start date: 03/19/18 10:00:00 CDT, Duration: 1 doses or times heparin 2017-0 No 10,000 Memoria 6-11 unit, 10 l [...] 6-11 Rate: l 0.9% IV 14:14: 2000, [place] 1,000 mL 00 Route: IV, Dosing Weight 100.455 kg, Total Volume: 1,000, Start date: 03/19/18 9:14:00 CDT, Duration: 1 doses or times, Stop date: 03/20/18 9:13:00 CDT, 2.19, m2 Sodium 2018-0 No 1,000 mL, Memori a Chloride 6-11 Rate: l 0.9% IV 14:14: 2000, [place] 1,000 mL 00 Route: IV, Dosing Weight 100.455 kg, Total Volume: 1,000, Start date: 03/19/18 9:14:00 CDT, Duration: 1 doses or times, Stop date: 03/20/18 9:13:00 CDT, 2.19, m2 Sodium 2018-0 No 1,000 mL, Memori a Chloride 6-11 Rate: l 0.9% IV 14:14: 2000, [place] 1,000 mL 00 Route: IV, Dosing Weight 100.455 kg, Total Volume: 1,000, Start date: 03/19/18 9:14:00 CDT, Duration: 1 doses or times, Stop date: 03/20/18 9:13:00 CDT, 2.19, m2 Tylenol 2018-0 No Notes: Do Memor ia 6-10 not exceed l 23:00: 4 gm/day. [place] 00 (Same as: Tylenol) Roxicodone 2018-0 No Notes: Memor ia 6-10 (Same as: l 23:00: Roxicodone ) Tylenol No Notes: Do Memor ia 6-10 not exceed l 23:00: 4 gm/day. [place] (Same as: Tylenol) Roxicodone No Notes: Memor ia 6-10 (Same as: l 23:00: Roxicodone ) Tylenol No Notes: Do Memor ia 6-10 not exceed l 23:00: 4 gm/day. [place] (Same as: Tylenol) Roxicodone No Notes: Memor ia 6-10 (Same as: l 23:00: Roxicodone [place] 00 ) Tylenol No Notes: Do Memor ia 6-10 not exceed l 23:00: 4 gm/day. [place] 00 (Same as: Tylenol) Roxicodone No Notes: Memor ia 6-10 (Same as: l 23:00: Roxicodone [place] 00 ) Acetaminoph No Notes: Do M emoria [...] ia 6-10 (Same as: l 14:00: Norvasc) [place] 00 Amlodipine No Notes: Memor ia 6-10 (Same as: l 14:00: Norvasc) Alprazolam No Notes: Memor ia 2 MG Oral 6-10 With food l Tablet 04:20: or milk [place] [Xanax] 00 (Same as: Xanax) Alprazolam No Notes: Memor ia 2 MG Oral 6-10 With food l Tablet 04:20: or milk [place] [Xanax] 00 (Same as: Xanax) Alprazolam No Notes: Memor ia 2 MG Oral 6-10 With food l Tablet 04:20: or milk [place] [Xanax] 00 (Same as: Xanax) Alprazolam No Notes: Memor ia 2 MG Oral 6-10 With food l Tablet 04:20: or milk [place] [Xanax] 00 (Same as: Xanax) Vancomycin No 2000 mg: [facility] 6-10 infuse l Dosing + 03:00: over 2.5 [place] nn Sodium 00 hours For Chloride adult 0.9% IV 250 patients mL only: Round to nearest 250 mg per Medical Staff approval MEDICATION WASTE Product Size: 1000 mg Product Wasted: ___ mg Vancomycin 2017- No 2001 mg: [facility] 6-10 infuse l Dosing + 03:00: over 2.5 [place] nn Sodium 00 hours For Chloride adult 0.9% IV 250 patients mL only: Round to nearest 250 mg per Medical Staff approval MEDICATION WASTE Product Size: 1000 mg Product Wasted: ___ mg Vancomycin No 2001 mg: [facility] 6-10 infuse l Dosing + 03:00: over 2.5 [place] nn Sodium 00 hours For Chloride adult 0.9% IV 250 patients mL only: Round to nearest 250 mg per Medical Staff approval MEDICATION WASTE Product Size: 1000 mg Product Wasted: ___ mg Vancomycin No 2001 mg: [facility] 6[facility] infuse l Dosing + 03:00: over 2.5 [place] nn Sodium 00 hours For Chloride adult 0.9% IV 250 patients mL only: Round to nearest 250 mg per Medical Staff approval MEDICATION WASTE Product Size: 1000 mg Product Wasted: ___ mg tamsulosin No Notes: Memor ia 6-10 (Same As: l 02:00: Flomax) [place] "Do Not Crush" carvedilol No Notes: Memor [...] ia 6-10 Give with l 02:00: food. [place] (Same As: Coreg) tamsulosin No Notes: Memor ia 6-10 (Same As: l 02:00: Flomax) [place] "Do Not Crush" carvedilol No Notes: Memor ia 6-10 Give with l 02:00: food. [place] (Same As: Coreg) Hydralazine No Notes: Kojo lynn Hydrochlori 03-17 (Same as: l de 25 MG 22:00: Apresoline Her meeks Oral Tablet ) May interfere w/enteral feedings Take With Food. Lasix No Notes: Memoria - (Same as: l 22:00: Lasix) May [place] cause GI upset. Give with food or milk. Hydralazine No Notes: Kojo lynn Hydrochlori 6-09 (Same as: l de 25 MG 22:00: Apresoline Her meeks Oral Tablet 00 ) May interfere w/enteral feedings Take With Food. Lasix No Notes: Memoria 6-09 (Same as: l 22:00: Lasix) May [place] 00 cause GI upset. Give with food [...] lynn 6-09 (Same as: l 20:10: Apresoline [place] 00 ) Push over 5 minutes Acetaminoph No Notes: Kojo lynn en 325 MG / 6 (Same as: l Hydrocodone 20:10: [place] nn Bitartrate 00 325/5) Do 5 MG Oral not exceed Tablet 4gm/day of [Mcintosh acetaminop 5/325] hen. Hydralazine No Notes: Kojo lynn 6-09 (Same as: l 20:10: Apresoline [place] 00 ) Push over 5 minutes Acetaminoph No Notes: Kojo lynn en 325 MG / 609 (Same as: l Hydrocodone 20:10: [place] nn Bitartrate 00 325/5) Do 5 MG Oral not exceed Tablet 4gm/day of [[place] acetaminop 5/325] hen. Hydralazine No Notes: Kojo lynn 6-09 (Same as: l 20:10: Apresoline [place] 00 ) Push over 5 minutes Acetaminoph No Notes: Kojo lynn en 325 MG / 03-17 (Same as: l Hydrocodone 20:10: Mcintosh [place] nn Bitartrate 00 325/5) Do 5 MG Oral not exceed Tablet 4gm/day of [[place] acetaminop 5/325] hen. Hydralazine No Notes: Kojo lynn 03-17 (Same as: l 20:10: Apresoline [place] 00 ) Push over 5 minutes Acetaminoph No Notes: Kojo lynn en 325 MG / 03-17 (Same as: l Hydrocodone 20:10: Mcintosh [place] nn Bitartrate 00 325/5) Do 5 MG Oral not exceed Tablet 4gm/day of [Mcintosh acetaminop 5/325] hen. phenol No Notes: Memoria 03-17 Chlorasept l 20:08: ic [place] (Same as: Chlorasept ic, Sore Throat [place]) WASTE: F/P - Black; E - Municipal Trash Bin phenol No Notes: Memoria 03-17 Chlorasept l 20:08: ic [place] 00 (Same as: Chlorasept ic, Sore Throat [place]) WASTE: F/P - Black; E - Municipal Trash Bin phenol No Notes: Memoria 03-17 Chlorasept l 20:08: ic [place] (Same as: Chlorasept ic, Sore Throat [place]) WASTE: F/P - Black; E - Municipal Trash Bin phenol No Notes: 03-17 Chlorasept l 20:08: ic [place] (Same as: Chlorasept ic, Sore Throat [place]) WASTE: F/P - Black; E - Municipal Trash Bin Furosemide Yes 80 mg = 1 Me moria 80 MG Oral 03-17 tab, PO, l Tablet 15:44: BID, 0 [place] [Lasix] 00 Refill(s) amLODIPine Yes 10 mg = 1 Me moria 10 mg oral 03-17 tab, PO, l tablet 15:44: Daily, # [place] 00 30 tab, 0 Refill(s) carvedilol Yes 3.125 mg = M emoria 3.125 mg 03-17 1 tab, PO, l oral tablet 15:44: Q12H, # 60 [place] 00 tab, 0 Refill(s) calcium 2018-0 Yes 2,001 mg = Kojo lynn acetate 667 6-09 3 cap, PO, l MG Oral 15:44: [...] = 1 Me moria 10 mg oral 6- tab, PO, l tablet 15:44: Daily, # [place] 00 30 tab, 0 Refill(s) carvedilol 2018-0 Yes 3.125 mg = M emoria 3.125 mg 03-17 1 tab, PO, l oral tablet 15:44: Q12H, # 60 [place] 00 tab, 0 Refill(s) calcium 2018-0 Yes 2,001 mg = Kojo lynn acetate 667 6-09 3 cap, PO, l MG Oral 15:44: TID, 0 [place] Capsule 00 Refill(s) Acetaminoph 2018-0 Yes 1 tab, PO, Memoria en 325 MG / 6-09 BID, 0 l Oxycodone 15:44: Refill(s) Her constantino Hydrochlori 00 de 5 MG Oral Tablet [Percocet 5/325] Hydralazine 2018-0 Yes 25 mg = 1 M emoria Hydrochlori 6-09 tab, PO, l de 25 MG 15:44: TID, # 270 Her meeks Oral Tablet 00 tab, 1 Refill(s) tamsulosin 2018 Yes 0.4 mg = 1 M emoria 0.4 mg oral 6-09 cap, PO, l capsule 15:44: Bedtime, 0 Herm dionne 00 Refill(s) Furosemide 20180 Yes 80 mg = 1 Me moria 80 MG Oral 6-09 tab, PO, l Tablet 15:44: BID, 0 [place] [Lasix] 00 Refill(s) amLODIPine 0 Yes 10 mg = 1 Me moria 10 mg oral 6-09 tab, PO, l tablet 15:44: Daily, # [place] 00 30 tab, 0 Refill(s) carvedilol 0 [...] Bedtime, 0 Herm dionne 00 Refill(s) Furosemide 20180 Yes 80 mg = 1 Me moria 80 MG Oral 6-09 tab, PO, l Tablet 15:44: BID, 0 [place] [Lasix] 00 Refill(s) amLODIPine 0 Yes 10 mg = 1 Me moria 10 mg oral 6-09 tab, PO, l tablet 15:44: Daily, # [place] 00 30 tab, 0 Refill(s) carvedilol 2018-0 [...] Notes: Memoria 6-09 porcine l 14:00: heparin [place] 00 heparin No Notes: Memoria 6-09 porcine l 14:00: heparin heparin No Notes: Memoria 6-09 porcine l 14:00: heparin heparin No Notes: Memoria 6-09 porcine l 14:00: heparin heparin No 10,000 Memoria 6-09 unit, 10 l 13:00: mL, Route: [place] 00 DIALYSIS, Drug form: INJ, ONCALL, Dosing Weight 100.455, kg, Start date: 03/17/18 8:00:00 CDT, Duration: 1 doses or times heparin No 10,000 Memoria 6-09 unit, 10 l 13:00: mL, Route: [place] 00 DIALYSIS, Drug form: INJ, ONCALL, Dosing Weight 100.455, kg, Start date: 03/17/18 8:00:00 CDT, Duration: 1 doses or times heparin No 10,000 Memoria 6-09 unit, 10 l 13:00: mL, Route: [place] 00 DIALYSIS, Drug form: INJ, ONCALL, Dosing Weight 100.455, kg, Start date: 03/17/18 8:00:00 CDT, Duration: 1 doses or times heparin No 10,000 Memoria 03-17 unit, 10 l 13:00: mL, Route: [place] 00 DIALYSIS, Drug form: INJ, ONCALL, Dosing Weight 100.455, kg, Start date: 03/17/18 8:00:00 CDT, Duration: 1 doses or times Mannitol Yes Notes: Memoria 03-17 (Same as: l 12:41: Osmitrol) [place] 00 Infuse through 5 micron or smaller filter WASTE: F/P - Sink; E - Municipal Trash Bin Mannitol Yes Notes: Memoria 03-17 (Same as: l 12:41: Osmitrol) [place] 00 Infuse through 5 micron or smaller filter WASTE: F/P - Sink; E - Municipal Trash Bin Mannitol Yes Notes: Memoria 03-17 (Same as: l 12:41: Osmitrol) [place] 00 Infuse through 5 micron or smaller filter WASTE: F/P - Sink; E - Municipal Trash Bin Mannitol Yes Notes: Memoria 03-17 (Same as: l 12:41: Osmitrol) [place] Infuse through 5 micron or smaller filter [...] Chloride 03-17 2000 l 0.9% 12:00: ml/hr, [place] (Bolus) IV 00 Infuse Over: 1 hr, Route: IV, 2,000, Drug form: INJ, ONCE, Priority: STAT, Dosing Weight 98.182 kg, Start date: 03/17/18 7:00:00 CDT, PRN Dialysis cefepime No Notes: Memoria 03-17 (Same As: l 12:00: Maxipime) [place] 00 MEDICATION WASTE Product Size: 1000 mg Product Wasted: ___ mg Vancomycin 2018-0 No 2000 mg: Me moria 03-17 infuse l 12:00: over 2.5 [place] 00 hours For adult patients only: Round to nearest 250 mg per Medical Staff approval MEDICATION WASTE Product Size: 1000 mg Product Wasted: ___ mg Sodium 2018-0 No 2,000 mL, Memori a Chloride 03-17 2000 l 0.9% 12:00: ml/hr, [place] (Bolus) IV 00 Infuse Over: 1 hr, Route: IV, 2,000, Drug form: INJ, ONCE, Priority: STAT, Dosing Weight 98.182 kg, Start date: 03/17/18 7:00:00 CDT, PRN Dialysis cefepime 2018-0 No Notes: Memoria 03-17 (Same As: l 12:00: Maxipime) [place] 00 MEDICATION WASTE Product Size: 1000 mg [...] Memoria 03-17 (Same As: l 12:00: Maxipime) [place] 00 MEDICATION WASTE Product Size: 1000 mg [...] Chloride 03-17 2000 l 0.9% 12:00: ml/hr, [place] (Bolus) IV 00 Infuse Over: 1 hr, [...] 0.9% 03-17 (Same as: l 11:53: BD [place] 00 Posiflush) Acetaminoph No Notes: Do M emoria en 03-17 not exceed l 11:53: 4 gm/day. [place] 00 (Same as: Tylenol) Saline No Notes: Memoria Flush 0.9% 03-17 (Same as: l 11:53: BD [place] 00 Posiflush) Acetaminoph No Notes: Do M emoria en 03-17 not exceed l 11:53: 4 gm/day. [place] 00 (Same as: Tylenol) Saline No Notes: Memoria Flush 0.9% 03-17 (Same as: l 11:53: BD [place] 00 Posiflush) Acetaminoph No Notes: Do M emoria en 03-17 not exceed l 11:53: 4 gm/day. [place] (Same as: Tylenol) Insulin No Notes: Memoria Lispro 03-17 (Same as: l 11:49: Humalog ) [place] Roll in palms of hands gently; Do not shake `vigorousl y. "Single Patient Use Only " WASTE: F/P - Black; E - Municipal Trash Bin Stable for 28 days at room temperatur e. Expires in days from ____Date Glucagon 2018-0 No 1 mg, Memoria 03-17 Route: IM, l 11:49: Drug form: [place] 00 PDR/INJ, PRN, Dosing Weight 98.182, kg, PRN Blood Glucose Results, Start date: 03/17/18 6:49:00 CDT, Duration: 30 day, Stop date: 04/16/18 6:48:00 CDT Dextrose 2018-0 No 25 gm, 50 Kojo lynn 50% Syringe 6-09 mL, Route: l 11:49: IVP, Drug [place] 00 Form: INJ, Dosing Weight 98.182, kg, [...] 03-17 Route: IM, l 11:49: Drug form: [place] 00 PDR/INJ, PRN, Dosing Weight 98.182, kg, [...] Notes: Memoria Lispro 03-17 (Same as: l 49: Humalog ) [place] 00 Roll in palms of hands gently; Do not shake `vigorousl y. "Single Patient Use Only " WASTE: F/P - Black; E - Municipal Trash Bin Stable for 28 days at room temperatur e. Expires in days from ____Date Glucagon 2017-0 No 1 mg, Memoria 03-17 Route: IM, l 11:49: Drug form: [place] 00 PDR/INJ, PRN, Dosing Weight 98.182, kg, PRN Blood Glucose Results, Start date: 03/17/18 6:49:00 CDT, Duration: 30 day, Stop date: 04/16/18 6:48:00 CDT Dextrose 2018-0 No 25 gm, 50 Kojo lynn 50% Syringe 6-09 mL, Route: l 11:49: IVP, Drug [place] 00 Form: INJ, Dosing Weight 98.182, kg, PRN, PRN Blood Glucose Results, Start date: 03/17/18 6:49:00 CDT, Duration: 30 day, Stop date: 04/16/18 6:48:00 CDT Zosyn 2018-0 No Notes: Memoria 03-17 (Same as: l 10:49: Zosyn) [place] 00 Dosing based on Piperacill in component MEDICATION WASTE Product Size: 4500 mg Product Wasted: ___ mg Vancomycin 2018-0 No 2000 mg: Me moria - infuse l 10:49: over 2.5 [place] 00 hours For adult patients only: Round to nearest 250 mg per Medical Staff approval MEDICATION WASTE Product Size: 1000 mg Product Wasted: ___ mg Zosyn 2018-0 No Notes: Memoria 03-17 (Same as: l 10:49: Zosyn) [place] 00 Dosing based on Piperacill in component MEDICATION WASTE Product Size: 4500 mg Product Wasted: ___ mg Vancomycin 2018-0 No 2000 mg: Me moria 03-17 infuse l 10:49: over 2.5 [place] 00 hours For adult patients only: Round to nearest 250 mg per Medical Staff approval MEDICATION WASTE Product Size: 1000 mg Product Wasted: ___ mg Zosyn 2018-0 No Notes: Memoria 03-17 (Same as: l 10:49: Zosyn) [place] 00 Dosing based on Piperacill in component MEDICATION WASTE Product Size: 4500 mg Product Wasted: ___ mg Vancomycin 2018-0 No 2001 mg: Me moria 03-17 infuse l 10:49: over 2.5 [place] 00 hours For adult patients only: Round to nearest 250 mg per Medical Staff approval MEDICATION WASTE Product Size: 1000 mg Product Wasted: ___ mg Zosyn 2018-0 No Notes: Memoria 03-17 (Same as: l 10:49: Zosyn) [place] 00 Dosing based on Piperacill in component MEDICATION WASTE Product Size: 4500 mg Product Wasted: ___ mg Vancomycin 2018-0 No 2001 mg: Me moria 6- infuse l 10:49: over 2.5 [place] 00 hours For adult patients only: Round to nearest 250 mg per Medical Staff approval MEDICATION WASTE Product Size: 1000 mg Product Wasted: ___ mg Saline No Notes: Memoria Flush 0.9% 6-09 (Same as: l 07:36: BD [place] 00 Posiflush) Saline No Notes: Memoria Flush 0.9% 6-09 (Same as: l 07:36: BD [place] 00 Posiflush) Saline No Notes: Memoria Flush 0.9% 6-09 (Same as: l 07:36: BD [place] 00 Posiflush) Saline No Notes: Memoria Flush 0.9% 6-09 (Same as: l 07:36: BD [place] 00 Posiflush) Saline No Notes: Memoria Flush 0.9% 4-17 (Same as: l 00:31: BD [place] 00 Posiflush) Saline No Notes: Memoria Flush 0.9% 4-17 (Same as: l 00:31: BD [place] 00 Posiflush) Saline No Notes: Memoria Flush 0.9% 4-17 (Same as: l 00:31: BD [place] 00 Posiflush) Saline No Notes: Memoria Flush 0.9% 4-17 (Same as: l 00:31: BD [place] 00 Posiflush) Lasix No Notes: Memoria 3-15 [...] 3-15 (Same as: l 14:00: Lasix) May [place] 00 cause GI upset. Give with food or milk. calcitriol No 0.5 Memoria 0.5 mcg 3-14 microgram l oral 14:51: = 1 cap, [place] capsule 00 PO, Daily, # 30 cap, 0 Refill(s), Pharmacy: [facility] calcitriol 2017-0 No 0.5 Memoria 0.5 mcg 3-14 microgram l oral 14:51: = 1 cap, [place] capsule 00 PO, Daily, # 30 cap, 0 Refill(s), Pharmacy: [facility] calcitriol 2017-0 No 0.5 Memoria 0.5 mcg 3-14 microgram l oral 14:51: = 1 cap, [place] capsule 00 PO, Daily, # 30 cap, 0 Refill(s), Pharmacy: [facility] calcitriol 0 No 0.5 Memoria 0.5 mcg 3-14 microgram l oral 14:51: = 1 cap, [place] capsule 00 PO, Daily, # 30 cap, 0 Refill(s), Pharmacy: [facility] Ergocalcife Yes 50,000 Kojo lynn rol [id number] 3-14 IntlUnit = l UNT Oral 14:47: 1 cap, PO, Her meeks Capsule 00 qWeek, # 5 cap, 0 Refill(s), Pharmacy: [facility] Calcium No 2,000 mg = Kojo lynn Carbonate 3-14 4 tab, PO, l 500 MG 14:47: TID, # 168 [place] nn Chewable 00 tab, 0 Tablet Refill(s), Pharmacy: [facility] sevelamer No 2,400 mg = Me moria carbonate 3-14 3 tab, PO, l 800 mg oral 14:47: TID-Meals, [place] tablet 00 # 270 tab, 0 Refill(s), Pharmacy: [facility] Furosemide 0 No 80 mg, PO, M emoria 80 MG Oral 3-14 Daily, # l Tablet 14:47: 30 ea, 0 [place] [Lasix] 00 Refill(s), Pharmacy: [facility] carvedilol No 3.125 mg = M emoria 3.125 mg 3-14 1 tab, PO, l oral tablet 14:47: Q12H, # 60 Marlo 00 tab, 0 Refill(s), Pharmacy: [facility] [id number] amLODIPine No 10 mg = 2 Me moria 5 mg oral 3-14 tab, PO, l tablet 14:47: Daily, # [place] 00 60 tab, 0 Refill(s), Pharmacy: [facility] Ergocalcife Yes 50,000 Kojo lynn rol [id number] 3-14 IntlUnit = l UNT Oral 14:47: 1 cap, PO, Her meeks Capsule 00 qWeek, # 5 cap, 0 Refill(s), Pharmacy: [facility] Calcium No 2,000 mg = Kojo lynn Carbonate 3-14 4 tab, PO, l 500 MG 14:47: TID, # 168 [place] nn Chewable 00 tab, 0 Tablet Refill(s), Pharmacy: [facility] sevelamer No 2,400 mg = Me moria carbonate 3-14 3 tab, PO, l 800 mg oral 14:47: TID-Meals, [place] tablet 00 # 270 tab, 0 Refill(s), Pharmacy: [facility] Furosemide No 80 mg, PO, M emoria 80 MG Oral 3-14 Daily, # l Tablet 14:47: 30 ea, 0 [place] [Lasix] 00 Refill(s), Pharmacy: [facility] carvedilol No 3.125 mg = M emoria 3.125 mg 3-14 1 tab, PO, l oral tablet 14:47: Q12H, # 60 [place] 00 tab, 0 Refill(s), Pharmacy: [facility] amLODIPine No 10 mg = 2 Me moria 5 mg oral 3-14 tab, PO, l tablet 14:47: Daily, # [place] 00 60 tab, 0 Refill(s), Pharmacy: [facility] Ergocalcife Yes 50,000 Kojo lynn rol [id number] 14 IntlUnit = l UNT Oral 14:47: 1 cap, PO, Her meeks Capsule 00 qWeek, # 5 cap, 0 Refill(s), Pharmacy: [facility] Calcium No 2,000 mg = Kojo lynn Carbonate 3-14 4 tab, PO, l 500 MG 14:47: TID, # 168 [place] nn Chewable 00 tab, 0 Tablet Refill(s), Pharmacy: [facility] sevelamer 0 No 2,400 mg = Me moria carbonate 3-14 3 tab, PO, l 800 mg oral 14:47: TID-Meals, [place] tablet 00 # 270 tab, 0 Refill(s), Pharmacy: [facility] Furosemide 2017-0 No 80 mg, PO, M emoria 80 MG Oral 3-14 Daily, # l Tablet 14:47: 30 ea, 0 [place] [Lasix] 00 Refill(s), Pharmacy: [facility] carvedilol No 3.125 mg = M emoria 3.125 mg 3-14 1 tab, PO, l oral tablet 14:47: Q12H, # 60 [place] 00 tab, 0 Refill(s), Pharmacy: [facility] amLODIPine No 10 mg = 2 Me moria 5 mg oral 3-14 tab, PO, l tablet 14:47: Daily, # [place] 00 60 tab, 0 Refill(s), Pharmacy: [facility] Ergocalcife Yes 50,000 Kojo lynn rol [id number] 3-14 IntlUnit = l UNT Oral 14:47: 1 cap, PO, Her meeks Capsule 00 qWeek, # 5 cap, 0 Refill(s), Pharmacy: [facility] Calcium 2017-0 No 2,000 mg = Kojo lynn Carbonate 3-14 4 tab, PO, l 500 MG 14:47: TID, # 168 [place] nn Chewable 00 tab, 0 Tablet Refill(s), Pharmacy: [facility] sevelamer 0 No 2,400 mg = Me moria carbonate 3-14 3 tab, PO, l 800 mg oral 14:47: TID-Meals, [place] tablet 00 # 270 tab, 0 Refill(s), Pharmacy: [facility] Furosemide 2017-0 No 80 mg, PO, M emoria 80 MG Oral 3-14 Daily, # l Tablet 14:47: 30 ea, 0 [place] [Lasix] 00 Refill(s), Pharmacy: [facility] carvedilol No 3.125 mg = M emoria 3.125 mg 3-14 1 tab, PO, l oral tablet 14:47: Q12H, # 60 [place] 00 tab, 0 Refill(s), Pharmacy: [facility] amLODIPine No 10 mg = 2 Me moria 5 mg oral 3-14 tab, PO, l tablet 14:47: Daily, # [place] 00 60 tab, 0 Refill(s), Pharmacy: [facility] Calcium No Notes: Memoria Gluconate 3-14 WASTE: F/P l 11:50: - Sink; E [place] 00 - [facility] Calcium No Notes: Memoria Gluconate 3-14 WASTE: F/P l 11:50: - Sink; E [place] 00 - [facility] Calcium No Notes: Memoria Gluconate 3-14 WASTE: F/P l 11:50: - Sink; E [place] 00 - [facility] Calcium No Notes: Memoria Gluconate 3-14 WASTE: F/P l 11:50: - Sink; E [place] 00 - [facility] Coreg No Notes: Memoria 3-14 Give with l 02:00: food. (Same As: Coreg) Coreg No Notes: Memoria 3-14 Give with l 02:00: food. [place] 00 (Same As: Coreg) Coreg No Notes: Memoria 3-14 Give with l 02:00: food. [place] 00 (Same As: Coreg) Coreg No Notes: [...] Memoria 3-13 (Same as: l 14:00: Lasix) [place] 00 MEDICATION WASTE Product Size: 40 mg [...] WASTE: F/P l 20:44: - Sink; E [place] - [facility] Calcium No Notes: Memoria Carbonate 3-12 (Same As: l 18:00: Tums) [place] 00 Calcium Carbonate 500 mg = 200 [...] WASTE: F/P l 10:53: - Sink; E [place] 00 - [facility] Calcium No Notes: Memoria Gluconate 3-12 WASTE: F/P l 10:53: - Sink; E - [facility] Calcium No Notes: Memoria Gluconate 3-12 WASTE: F/P l 10:53: - Sink; E [place] 00 - [facility] Calcium No Notes: Memoria Gluconate 3-12 WASTE: F/P l 10:53: - Sink; E [place] - [facility] Calcium No Notes: Memoria Gluconate 3-12 WASTE: F/P l 04:35: - Sink; E [place] 00 - [facility] Calcium No Notes: Memoria Gluconate 3-12 WASTE: F/P l 04:35: - Sink; E [place] - [facility] Calcium No Notes: Memoria Gluconate 3-12 WASTE: F/P l 04:35: - Sink; E [place] - [facility] Calcium No Notes: Memoria Gluconate 3-12 WASTE: F/P l 04:35: - Sink; E [place] 00 - [facility] RenaGel No Notes: Memoria 3-11 Same as: l 17:00: Renvela [place] RenaGel No Notes: Memoria 3-11 Same as: l 17:00: Renvela [place] RenaGel No Notes: Memoria 3-11 Same as: l 17:00: Renvela [place] RenaGel No Notes: Memoria 3-11 Same as: l 17:00: Renvela [place] Lasix No Notes: Memoria 3-11 (Same as: [...] Memoria 3-11 (Same as: l 14:00: Lasix) [place] 00 MEDICATION WASTE Product Size: 40 mg Product Wasted: ___ mg Venofer No Notes: Memoria 3-11 Each 5ml l 14:00: contains [place] 00 100mg elemental iron. Mix with NS [...] WASTE: F/P l 11:35: - Sink; E [place] 00 - [facility] Calcium No [...] Memor ia 3-11 (sodium l 01:11: polystyren [place] 00 e sulfonate 15 gm/60 ml CANDACE) Shake well before use. (Same as: Kayexalate , SPS) sodium No Notes: Memoria bicarbonate 3-11 (sodium l 8.4% 01:11: bicarb [place] 00 8.4% (1 mEq/ml) 50 ml syringe) Kayexalate No Notes: Memor ia 3-11 (sodium l 01:11: polystyren [place] 00 e sulfonate 15 gm/60 ml CANDACE) Shake well before use. (Same as: Kayexalate , SPS) sodium No Notes: Memoria bicarbonate 3-11 (sodium l 8.4% 01:11: bicarb [place] 00 8.4% (1 mEq/ml) 50 ml syringe) Kayexalate No Notes: Memor ia 3-11 (sodium l 01:11: polystyren [place] 00 e sulfonate 15 gm/60 ml CANDACE) Shake well before use. (Same as: Kayexalate , SPS) sodium No Notes: Memoria bicarbonate 3-11 (sodium l 8.4% 01:11: bicarb [place] 00 8.4% (1 mEq/ml) 50 ml syringe) Kayexalate No Notes: Memor ia 3-11 (sodium l 01:11: polystyren [place] 00 e sulfonate 15 gm/60 ml CANDACE) [...] ia 3-10 (Same as: l 15:00: Norvasc) [place] Amlodipine No Notes: Memor ia 3-10 (Same as: l 15:00: Norvasc) [place] Kayexalate No Notes: Memor ia 3-10 (sodium l 13:38: polystyren [place] 00 e sulfonate 15 gm/60 ml CANDACE) Shake well before use. (Same as: Kayexalate , SPS) Kayexalate No Notes: Memor ia 3-10 (sodium l 13:38: polystyren [place] 00 e sulfonate 15 gm/60 ml CANDACE) Shake well before use. (Same as: Kayexalate , SPS) Kayexalate No Notes: Memor ia 3-10 (sodium l 13:38: polystyren [place] 00 e sulfonate 15 gm/60 ml CANDACE) [...] Memoria 3-09 (Same as: l 21:38: Dilaudid) [place] 00 Morphine No Notes: Memoria 3-09 (Same l 19:02: as:MORPhin [place] 00 e Sulfate) Morphine No Notes: Memoria 3-09 (Same l 19:02: as:MORPhin [place] 00 e Sulfate) Morphine No Notes: Memoria 3-09 (Same l 19:02: as:MORPhin [place] 00 e Sulfate) Morphine No Notes: Memoria [...] Oral Tablet [Tylenol with Codeine #4] Acetaminoph 0 No 2 tabs, Mem oria en 300 [...] tab, PO, l Tablet 18:19: BID, PRN [place] [Xanax] 00 as needed for anxiety, 0 [...] tab, PO, l Tablet 18:19: BID, PRN [place] [Xanax] 00 as needed for anxiety, 0 Refill(s) Amlodipine No 1 cap, PO, M emoria 10 MG / 3-09 TID, 0 l Benazepril 18:19: Refill(s) Jarad rmdionne hydrochlori 00 de 20 MG Oral Capsule [Lotrel 10/20] lisinopril No 20 mg = 1 Me moria 20 mg oral 3-09 tab, PO, l tablet 18:19: Daily, 0 [place] 00 Refill(s) Alprazolam Yes 2 mg = 1 Mem oria 2 MG Oral 3-09 tab, PO, l Tablet 18:19: BID, PRN [place] [Xanax] 00 as needed for anxiety, 0 Refill(s) Amlodipine No 1 cap, PO, M emoria 10 MG / 3-09 TID, 0 l Benazepril 18:19: Refill(s) Jarad rmdionne hydrochlori 00 de 20 MG Oral Capsule [Lotrel 10] lisinopril No 20 mg = 1 Me moria 20 mg oral 3-09 tab, PO, l tablet 18:19: Daily, 0 [place] 00 Refill(s) Calcium No Notes: Memoria Carbonate 12-15 (Same As: l 16:06: Tums) [place] 00 Calcium Carbonate 500 mg = 200 [...] elemental calcium) Calcitriol No Notes: Memor ia - (Same As: l 16:06: Rocaltrol) Calcium No Notes: Memoria Carbonate 3 (Same As: l 16:06: Tums) [place] Calcium Carbonate 500 mg = 200 mg elemental calcium Dose = mg calcium carbonate ( mg elemental calcium) Calcitriol No Notes: Memor ia 12-15 (Same As: l 16:06: Rocaltrol) Calcium No Notes: Memoria Carbonate 3- (Same As: l 16:06: Tums) Calcium Carbonate 500 mg = 200 mg elemental calcium Dose = mg calcium carbonate ( mg elemental calcium) Calcitriol No Notes: Memor ia 12-15 (Same As: l 16:06: Rocaltrol) Ondansetron No Notes: Kojo lynn 12-15 (Same as: l 14:31: Zofran) [place] 00 MEDICATION WASTE Product Size: 4 mg Product Wasted: ___ mg Acetaminoph No Notes: Do M emoria en 12-15 not exceed l 14:31: 4 gm/day. [place] 00 (Same as: Tylenol) Acetaminoph No Notes: Kojo lnyn en 325 MG / 12-15 (Same as: l Hydrocodone 14:31: Mcintosh [place] nn Bitartrate 00 325/5) Do 5 MG Oral not exceed Tablet 4gm/day of acetaminop hen. Ondansetron No Notes: Kojo lynn - (Same as: l 14:31: Zofran) [place] 00 MEDICATION WASTE Product Size: 4 mg Product Wasted: ___ mg Acetaminoph No Notes: Do M emoria en - not exceed l 14:31: 4 gm/day. [place] 00 (Same as: Tylenol) Acetaminoph No Notes: Kojo lynn en 325 MG / 12-15 (Same as: l Hydrocodone 14:31: Mcintosh [place] nn Bitartrate 00 325/5) Do 5 MG Oral not exceed Tablet 4gm/day of acetaminop hen. Ondansetron No Notes: Kojo lynn - (Same as: l 14:31: Zofran) [place] MEDICATION WASTE Product Size: 4 mg Product Wasted: ___ mg Acetaminoph 0 No Notes: Do M emoria en 12-15 not exceed l 14:31: 4 gm/day. [place] (Same as: Tylenol) Acetaminoph No Notes: Kojo lynn en 325 MG / 3-09 (Same as: l Hydrocodone 14:31: Mcintosh [place] nn Bitartrate 00 325/5) Do 5 MG Oral not exceed Tablet 4gm/day of acetaminop hen. Ondansetron No Notes: Kojo lynn 3-09 (Same as: l 14:31: Zofran) [place] 00 MEDICATION WASTE Product Size: 4 mg Product Wasted: ___ mg Acetaminoph No Notes: Do M emoria en - not exceed l 14:31: 4 gm/day. [place] 00 (Same as: Tylenol) Acetaminoph No Notes: Kojo lynn en 325 MG / 309 (Same as: l Hydrocodone 14:31: Mcintosh [place] nn Bitartrate 00 325/5) Do 5 MG Oral not exceed Tablet 4gm/day of acetaminop hen. Saline No Notes: Memoria Flush 0.9% 3-09 (Same as: l 12:30: BD [place] 00 Posiflush) Saline No Notes: Memoria Flush 0.9% 3-09 (Same as: l 12:30: BD [place] 00 Posiflush) Saline No Notes: Memoria Flush 0.9% 3-09 (Same as: l 12:30: BD [place] 00 Posiflush) Saline No Notes: Memoria Flush 0.9% 3-09 (Same as: l 12:30: BD [place] 00 Posiflush) Lasix No Notes: Memoria 3- (Same as: l 10:45: Lasix) [place] 00 MEDICATION WASTE Product Size: 40 mg Product Wasted: ___ mg Lasix No Notes: Memoria 3- (Same as: l 10:45: Lasix) [place] 00 MEDICATION WASTE Product Size: 40 mg Product Wasted: ___ mg Lasix No Notes: Memoria 3 (Same as: l 10:45: Lasix) [place] 00 MEDICATION WASTE Product Size: 40 mg Product Wasted: ___ mg Lasix No Notes: Memoria 3- (Same as: l 10:45: Lasix) [place] 00 MEDICATION WASTE Product Size: 40 mg Product Wasted: ___ mg Immunizations Ordered Filled Immunization Date Status Comments [facility] e Immunization Name Name influenza virus 2020-07-15 Completed [facility] [place] vaccine, 19:16:00 inactivated influenza virus 2020-07-15 Completed [facility] [place] vaccine, 19:16:00 inactivated influenza virus 2020-07-15 Completed [facility] [place] vaccine, 19:16:00 inactivated influenza virus 2020-07-15 Completed [...] 2018-08-16 Completed [facility] Dosage 00:00:00 [facility] Hep B, Adol or Pedi 2018-08-16 Completed [facility] of Dosage 00:00:00 [facility] Hep B, Adol or Pedi 2018-08-16 Completed [facility] rs[facility] of Dosage 00:00:00 [facility] Hep B, Adol or Pedi 2018-08-16 Completed [facility] rs[facility] of Dosage 00:00:00 [facility] Hep B, Adol or Pedi 2018-08-16 Completed [facility] rs[facility] of Dosage 00:00:00 [facility] Influenza Virus 2018-06-28 Completed [facility] Vaccine 00:00:00 [facility] Influenza Virus 2018-06-28 Completed [facility] Vaccine 00:00:00 [facility] Influenza Virus 2018-06-28 Completed [facility] Vaccine 00:00:00 [facility] Influenza Virus 2018-06-28 Completed [facility] Vaccine 00:00:00 [facility] Influenza Virus 2018-06-28 Completed [facility] Vaccine 00:00:00 [facility] Influenza Virus 2018-06-28 Completed [facility] Vaccine 00:00:00 [facility] Influenza Virus 2018-06-28 Completed [facility] Vaccine 00:00:00 [facility] Influenza Virus 2018-06-28 Completed [facility] Vaccine 00:00:00 [facility] Influenza Virus 2018-06-28 Completed [facility] Vaccine 00:00:00 [facility] Influenza Virus 2018-06-28 Completed [facility] Vaccine 00:00:00 [facility] Influenza Virus 2018-06-28 Completed [facility] Vaccine 00:00:00 [facility] Influenza Virus 2018-06-28 Completed [facility] Vaccine 00:00:00 [facility] Influenza Virus 2018-06-28 Completed [facility] Vaccine 00:00:00 [facility] Influenza Virus 2018-06-28 Completed [facility] Vaccine 00:00:00 [facility] Influenza Virus 2018-06-28 Completed [facility] Vaccine 00:00:00 [facility] Influenza Virus 2018-06-28 Completed [facility] Vaccine 00:00:00 [facility] Influenza Virus 2018-06-28 Completed [facility] Vaccine 00:00:00 [facility] Influenza Virus 2018-06-28 Completed [facility] [...] 2018-04-05 Completed [facility] rs[facility] of Dosage 00:00:00 [facility] pneumococcal 2018-03-20 Completed [facility] Her meeks 13-valent vaccine 21:53:00 pneumococcal 2018-03-20 Completed [facility] Her meeks 13-valent vaccine 21:53:00 pneumococcal 2018-03-20 Completed [facility] Her meeks 13-valent vaccine 21:53:00 pneumococcal 2018-03-20 Completed [facility] Her meeks 13-valent vaccine 21:53:00 Hep B, Adol or Pedi 2018-03-03 Completed [facility] Dosage 00:00:00 [facility] Hep B, Adol or Pedi 2018-03-03 Completed [facility] of Dosage 00:00:00 [facility] Hep B, Adol or Pedi 2018-03-03 Completed [facility] rs[facility] of Dosage 00:00:00 [facility] Hep B, Adol or Pedi 2018-03-03 Completed [facility] rs[facility] of Dosage 00:00:00 [facility] Hep B, Adol or Pedi 2018-03-03 Completed [facility] of Dosage 00:00:00 [facility] Hep B, Adol or Pedi 2018-03-03 Completed [facility] rs[facility] of Dosage 00:00:00 [facility] Hep B, Adol or Pedi 2018-03-03 Completed [facility] of Dosage 00:00:00 [facility] Hep B, Adol or Pedi 2018-03-03 Completed [facility] of Dosage 00:00:00 [facility] Hep B, Adol or Pedi 2018-03-03 Completed [facility] of Dosage 00:00:00 [facility] Hep B, Adol or Pedi 2018-03-03 Completed [facility] of Dosage 00:00:00 [facility] Hep B, Adol or Pedi 2018-03-03 Completed [facility] rs[facility] of Dosage 00:00:00 [facility] Hep B, Adol or Pedi 2018-03-03 Completed [facility] of Dosage 00:00:00 [facility] Hep B, Adol or Pedi 2018-03-03 Completed [facility] of Dosage 00:00:00 [facility] Hep B, Adol or Pedi 2018-03-03 Completed [facility] of Dosage 00:00:00 [facility] Hep B, Adol or Pedi 2018-03-03 Completed [facility] of Dosage 00:00:00 [facility] Hep B, Adol or Pedi 2018-03-03 Completed [facility] of Dosage 00:00:00 [facility] Hep B, Adol or Pedi 2018-03-03 Completed [facility] of Dosage 00:00:00 [facility] Hep B, Adol or Pedi 2018-03-03 Completed [facility] of Dosage 00:00:00 [facility] Pneumococcal 2018-03-01 Completed [facility] f [...] 2018-03-01 Completed [facility] Polysaccharide, 00:00:00 [place] [facility] PPSV23 (PNEUMOVAX) [facility] Pneumococcal 2018-03-01 Completed [facility] Polysaccharide, 00:00:00 [place] [facility] PPSV23 (PNEUMOVAX) [facility] Pneumococcal 2018-03-01 Completed [facility] o f Polysaccharide, 00:00:00 [place] [facility] PPSV23 (PNEUMOVAX) [facility] Pneumococcal 2018-03-01 Completed [facility] o f Polysaccharide, 00:00:00 [facility] PPSV23 (PNEUMOVAX) [facility] Pneumococcal 2018-03-01 Completed [facility] o f Polysaccharide, 00:00:00 [facility] PPSV23 (PNEUMOVAX) [facility] PPD (TB) 2018-02-27 Completed [facility] of 00:00:00 [facility] PPD (TB) 2018-02-27 Completed [facility] of 00:00:00 [facility] PPD (TB) 2018-02-27 Completed [facility] of 00:00:00 [facility] PPD (TB) 2018-02-27 Completed [facility] 00:00:00 [facility] PPD (TB) 2018-02-27 Completed [facility] 00:00:00 [facility] PPD (TB) 2018-02-27 Completed [facility] of 00:00:00 [facility] PPD (TB) 2018-02-27 Completed [facility] 00:00:00 [facility] PPD (TB) 2018-02-27 Completed [facility] of 00:00:00 [facility] PPD (TB) 2018-02-27 Completed [facility] of 00:00:00 [facility] PPD (TB) 2018-02-27 Completed [facility] 00:00:00 [facility] PPD (TB) 2018-02-27 Completed [facility] 00:00:00 [facility] PPD (TB) 2018-02-27 Completed [facility] of 00:00:00 [facility] PPD (TB) 2018-02-27 Completed [facility] of 00:00:00 [facility] PPD (TB) 2018-02-27 Completed [facility] 00:00:00 [facility] PPD (TB) 2018-02-27 Completed [facility] 00:00:00 [facility] PPD (TB) 2018-02-27 Completed [facility] 00:00:00 [facility] PPD (TB) 2018-02-27 Completed [facility] 00:00:00 [facility] PPD (TB) 2018-02-27 Completed [facility] 00:00:00 [facility] Vital Signs Vital Name Observation Time Observation Value Comments Source Heart Rate 2020-08-12 23:15:00 [facility] [place] Respitory Rate 2020-08-12 23:15:00 [facility] [place] Systolic (mm Hg) 2020-08-12 23:15:00 Kojo rial [place] Diastolic (mm Hg) 2020-08-12 23:15:00 Mem [facility] [place] Temperature Oral (F) 2020-08-12 23:15:00 98.1 F [facility] [place] Temperature Oral (F) 2020-08-12 19:20:00 98.0 F [facility] [place] Heart Rate 2020-08-12 19:20:00 [facility] [place] Respitory Rate 2020-08-12 19:20:00 [facility] [place] Systolic (mm Hg) 2020-08-12 19:20:00 Kojo rial [place] Diastolic (mm Hg) 2020-08-12 19:20:00 Mem [facility] [place] Respitory Rate 2020-08-12 19:00:00 [facility] [place] Systolic (mm Hg) 2020-08-12 19:00:00 Kojo rial [place] Diastolic (mm Hg) 2020-08-12 19:00:00 Mem orial [place] Temperature Oral (F) 2020-08-12 14:00:00 97.7 F [facility] [place] Heart Rate 2020-08-12 14:00:00 [facility] [place] Temperature Oral (F) 2020-08-10 06:00:00 98.3 F [facility] [place] Heart Rate 2020-08-10 06:00:00 [facility] [place] Respitory Rate 2020-08-10 06:00:00 [facility] [place] Systolic (mm Hg) 2020-08-10 06:00:00 Kojo rial [place] Diastolic (mm Hg) 2020-08-10 06:00:00 Mem [facility] [place] Temperature Oral (F) 2020-08-10 02:00:00 98.4 F [facility] [place] Heart Rate 2020-08-10 02:00:00 [facility] [place] Respitory Rate 2020-08-10 02:00:00 [facility] [place] Systolic (mm Hg) 2020-08-10 02:00:00 Kojo rial [place] Diastolic (mm Hg) 2020-08-10 02:00:00 Mem o[facility] [place] Temperature Oral (F) 2020-08-09 22:00:00 98.3 F [facility] [place] Heart Rate 2020-08-09 22:00:00 [facility] [place] Respitory Rate 2020-08-09 22:00:00 [facility] [place] Systolic (mm Hg) 2020-08-09 22:00:00 Kojo rial [place] Diastolic (mm Hg) 2020-08-09 22:00:00 [facility] [place] Height 2020-08-07 03:47:00 170.18 cm [facility] [place] Weight 2020-08-07 03:47:00 [facility] [place] BMI Calculated 2020-08-07 03:47:00 [facility] [place] Height 2020-08-06 18:59:00 152.4 cm [facility] [place] BMI Calculated 2020-08-06 18:59:00 [facility] [place] Weight 2020-08-06 18:59:00 [facility] [place] Respitory Rate 2020-07-24 16:17:00 [facility] [place] Systolic (mm Hg) 2020-07-24 16:17:00 Kojo rial [place] Diastolic (mm Hg) 2020-07-24 16:17:00 Mem [facility] [place] Temperature Oral (F) 2020-07-24 16:17:00 98.0 F [facility] [place] Respitory Rate 2020-07-24 15:04:00 [facility] [place] Systolic (mm Hg) 2020-07-24 15:04:00 Kojo rial [place] Diastolic (mm Hg) 2020-07-24 15:04:00 Mem orial [place] Heart Rate 2020-07-24 15:04:00 [facility] [place] Temperature Oral (F) 2020-07-24 15:04:00 97.9 F [facility] [place] Height 2020-07-24 14:45:00 170.18 cm [facility] [place] BMI Calculated 2020-07-24 14:45:00 [facility] [place] Weight 2020-07-24 14:45:00 [facility] [place] Heart Rate 2020-07-24 13:10:00 [facility] [place] Respitory Rate 2020-07-24 13:10:00 [facility] [place] Systolic (mm Hg) 2020-07-24 13:10:00 Kojo rial [place] Diastolic (mm Hg) 2020-07-24 13:10:00 [facility] [place] Height 2020-07-24 12:55:00 170.18 cm [facility] [place] BMI Calculated 2020-07-24 12:55:00 [facility] [place] Weight 2020-07-24 12:55:00 [facility] [place] Heart Rate 2020-07-24 12:55:00 [facility] [place] Temperature Oral (F) 2020-07-24 12:55:00 98.2 F [facility] [place] Heart Rate 2020-07-15 19:07:00 [facility] [place] Respitory Rate 2020-07-15 19:07:00 [facility] [place] Systolic (mm Hg) 2020-07-15 19:07:00 Kojo rial [place] Diastolic (mm Hg) 2020-07-15 19:07:00 Mem [facility] [place] Temperature Oral (F) 2020-07-15 17:00:00 98.1 F [facility] [place] Heart Rate 2020-07-15 17:00:00 [facility] [place] Systolic (mm Hg) 2020-07-15 17:00:00 Kojo rial [place] Diastolic (mm Hg) 2020-07-15 17:00:00 Mem [facility] [place] Respitory Rate 2020-07-15 17:00:00 [facility] [place] Temperature Oral (F) 2020-07-15 13:00:00 98.3 F [facility] [place] Heart Rate 2020-07-15 13:00:00 [facility] [place] Systolic (mm Hg) 2020-07-15 13:00:00 Kojo rial [place] Diastolic (mm Hg) 2020-07-15 13:00:00 [facility] [place] Temperature Oral (F) 2020-07-15 09:00:00 98.1 F [facility] [place] Respitory Rate 2020-07-15 09:00:00 [facility] [place] Height 2020-07-06 10:14:00 170.18 cm [facility] [place] BMI Calculated 2020-07-06 10:14:00 [facility] [place] Weight 2020-07-06 10:14:00 [facility] [place] Systolic (mm Hg) 2020-05-21 15:01:00 Kojo rial [place] Diastolic (mm Hg) 2020-05-21 15:01:00 [facility] [place] Heart Rate 2020-05-21 15:01:00 [facility] [place] Respitory Rate 2020-05-21 15:01:00 [facility] [place] Height 2020-05-21 13:15:00 170.18 cm [facility] [place] BMI Calculated 2020-05-21 13:15:00 [facility] [place] Weight 2020-05-21 13:15:00 [facility] [place] Systolic (mm Hg) 2020-05-21 13:15:00 Kojo rial [place] Diastolic (mm Hg) 2020-05-21 13:15:00 [facility] [place] Heart Rate 2020-05-21 13:15:00 [facility] [place] Respitory Rate 2020-05-21 13:15:00 [facility] [place] Temperature Oral (F) 2020-05-21 13:15:00 98.5 F [facility] [place] Systolic (mm Hg) 2020-03-23 14:05:00 Kojo rial [place] Diastolic (mm Hg) 2020-03-23 14:05:00 [facility] [place] Systolic (mm Hg) 2020-03-23 13:00:00 Kojo rial [place] Diastolic (mm Hg) 2020-03-23 13:00:00 [facility] [place] Temperature Oral (F) 2020-03-23 13:00:00 98.5 F [facility] [place] Heart Rate 2020-03-23 13:00:00 [facility] [place] Respitory Rate 2020-03-23 13:00:00 [facility] [place] Systolic (mm Hg) 2020-03-23 11:10:00 Kojo rial [place] Diastolic (mm Hg) 2020-03-23 11:10:00 [facility] [place] Respitory Rate 2020-03-23 11:10:00 [facility] [place] Heart Rate 2020-03-23 11:10:00 [facility] [place] Temperature Oral (F) 2020-03-23 11:10:00 98.4 F [facility] [place] Respitory Rate 2020-03-23 09:42:00 [facility] [place] Heart Rate 2020-03-23 09:42:00 [facility] [place] Temperature Oral (F) 2020-03-23 08:46:00 98.3 F [facility] [place] Height 2020-03-23 05:39:00 170.18 cm [facility] [place] BMI Calculated 2020-03-23 05:39:00 [facility] [place] Weight 2020-03-23 05:39:00 [facility] [place] Systolic (mm Hg) 2020-02-03 23:19:00 Kojo rial [place] Diastolic (mm Hg) 2020-02-03 23:19:00 [facility] [place] Respitory Rate 2020-02-03 23:19:00 [facility] [place] Heart Rate 2020-02-03 23:19:00 [facility] [place] Temperature Oral (F) 2020-02-03 23:19:00 98.6 F [facility] [place] Systolic (mm Hg) 2020-02-03 22:04:00 [facility] Diastolic (mm Hg) 2020-02-03 22:04:00 [facility] [place] Respitory Rate 2020-02-03 22:04:00 [facility] [place] Heart Rate 2020-02-03 22:04:00 [facility] Systolic (mm Hg) 2020-02-03 20:14:00 [facility] [place] Diastolic (mm Hg) 2020-02-03 20:14:00 [facility] Respitory Rate 2020-02-03 20:14:00 [facility] [place] Heart Rate 2020-02-03 20:14:00 [facility] Temperature Oral (F) 2020-02-03 20:14:00 98.5 F [facility] Height 2020-02-03 19:22:00 170.18 cm [facility] BMI Calculated 2020-02-03 19:22:00 [facility] Weight 2020-02-03 19:22:00 [facility] Temperature Oral (F) 2020-02-03 19:22:00 99.0 F [facility] Temperature Oral (F) 2019-11-05 18:00:00 98.3 F [facility] Heart Rate 2019-11-05 18:00:00 [facility] Respitory Rate 2019-11-05 18:00:00 [facility] [place] Systolic (mm Hg) 2019-11-05 18:00:00 [facility] [place] Diastolic (mm Hg) 2019-11-05 18:00:00 [facility] [place] Temperature Oral (F) 2019-11-05 14:00:00 98.1 F [facility] Heart Rate 2019-11-05 14:00:00 [facility] Respitory Rate 2019-11-05 14:00:00 [facility] Systolic (mm Hg) 2019-11-05 14:00:00 [facility] Diastolic (mm Hg) 2019-11-05 14:00:00 [facility] [place] Respitory Rate 2019-11-05 12:36:00 [facility] [place] Temperature Oral (F) 2019-11-05 10:00:00 98.0 F [facility] Heart Rate 2019-11-05 10:00:00 [facility] Systolic (mm Hg) 2019-11-05 10:00:00 [facility] Diastolic (mm Hg) 2019-11-05 10:00:00 [facility] Height 2019-10-29 07:23:00 170.18 cm [facility] Weight 2019-10-29 07:23:00 [facility] BMI Calculated 2019-10-29 07:23:00 [facility] [place] Height 2019-10-29 01:03:00 170.18 cm [facility] BMI Calculated 2019-10-29 01:03:00 [facility] Weight 2019-10-29 01:03:00 [facility] Temperature Oral (F) 2019-08-20 14:07:00 98.8 F [facility] Heart Rate 2019-08-20 14:07:00 [facility] Respitory Rate 2019-08-20 14:07:00 [facility] [place] Systolic (mm Hg) 2019-08-20 14:07:00 [facility] Diastolic (mm Hg) 2019-08-20 14:07:00 [facility] Systolic (mm Hg) 2019-08-20 12:15:00 [facility] Diastolic (mm Hg) 2019-08-20 12:15:00 [facility] [place] Heart Rate 2019-08-20 12:15:00 [facility] Temperature Oral (F) 2019-08-20 09:46:00 98.3 F [facility] Heart Rate 2019-08-20 09:46:00 [facility] Respitory Rate 2019-08-20 09:46:00 [facility] [place] Systolic (mm Hg) 2019-08-20 09:46:00 [facility] [place] Diastolic (mm Hg) 2019-08-20 09:46:00 [facility] Temperature Oral (F) 2019-08-20 06:02:00 98.5 F [facility] Respitory Rate 2019-08-20 06:02:00 [facility] [place] Height 2019-08-14 22:12:00 175.26 cm [facility] Weight 2019-08-14 22:12:00 [facility] BMI Calculated 2019-08-14 22:12:00 [facility] [place] Respitory Rate 2019-04-08 17:36:00 [facility] [place] Systolic (mm Hg) 2019-04-08 17:36:00 [facility] [place] Diastolic (mm Hg) 2019-04-08 17:36:00 [facility] Temperature Oral (F) 2019-04-08 17:36:00 98.0 F [facility] Heart Rate 2019-04-08 17:36:00 [facility] Respitory Rate 2019-04-08 13:23:00 [facility] [place] Heart Rate 2019-04-08 13:23:00 [facility] Temperature Oral (F) 2019-04-08 13:23:00 98.1 F [facility] Systolic (mm Hg) 2019-04-08 13:23:00 [facility] [place] Diastolic (mm Hg) 2019-04-08 13:23:00 [facility] Systolic (mm Hg) 2019-04-08 08:40:00 [facility] [place] Diastolic (mm Hg) 2019-04-08 08:40:00 [facility] [place] Respitory Rate 2019-04-08 08:40:00 [facility] Heart Rate 2019-04-08 08:40:00 [facility] Temperature Oral (F) 2019-04-08 08:40:00 98.0 F [facility] Weight 2019-04-06 04:23:00 [facility] BMI Calculated 2019-04-06 04:17:00 [facility] Height 2019-04-06 04:17:00 167.64 cm [facility] Weight 2019-04-06 04:17:00 [facility] Respitory Rate 2018-07-24 20:59:00 [facility] [place] Systolic (mm Hg) 2018-07-24 20:59:00 [facility] [place] Diastolic (mm Hg) 2018-07-24 20:59:00 [facility] [place] Heart Rate 2018-07-24 20:59:00 [facility] Temperature Oral (F) 2018-07-24 20:59:00 98.2 F [facility] Temperature Oral (F) 2018-07-24 16:59:00 98.3 F [facility] Heart Rate 2018-07-24 16:59:00 [facility] Respitory Rate 2018-07-24 16:59:00 [facility] Systolic (mm Hg) 2018-07-24 16:59:00 [facility] [place] Diastolic (mm Hg) 2018-07-24 16:59:00 [facility] Systolic (mm Hg) 2018-07-24 16:33:00 [facility] [place] Diastolic (mm Hg) 2018-07-24 16:33:00 [facility] Temperature Oral (F) 2018-07-24 16:33:00 98.2 F [facility] Respitory Rate 2018-07-24 16:33:00 [facility] Heart Rate 2018-07-24 16:33:00 [facility] Weight 2018-07-22 11:03:00 [facility] BMI Calculated 2018-07-22 11:03:00 [facility] Height 2018-07-22 11:03:00 170.18 cm [facility] BMI Calculated 2018-07-22 01:54:00 [facility] [place] Height 2018-07-22 01:54:00 170.18 cm [facility] Weight 2018-07-22 01:54:00 [facility] Respitory Rate 2018-07-21 02:35:00 [facility] Temperature Oral (F) 2018-07-21 02:35:00 98.6 F [facility] Systolic (mm Hg) 2018-07-21 02:35:00 [facility] Diastolic (mm Hg) 2018-07-21 02:35:00 [facility] Respitory Rate 2018-07-20 23:36:00 [facility] [place] Systolic (mm Hg) 2018-07-20 23:36:00 [facility] Diastolic (mm Hg) 2018-07-20 23:36:00 [facility] [place] Systolic (mm Hg) 2018-07-20 22:37:00 [facility] [place] Diastolic (mm Hg) 2018-07-20 22:37:00 [facility] [place] Respitory Rate 2018-07-20 22:37:00 [facility] Heart Rate 2018-07-20 22:37:00 [facility] Temperature Oral (F) 2018-07-20 22:37:00 97.7 F [facility] Height 2018-07-20 22:37:00 170.18 cm [facility] BMI Calculated 2018-07-20 22:37:00 [facility] Weight 2018-07-20 22:37:00 [facility] BMI Calculated 2018-05-23 15:20:00 [facility] [place] Weight 2018-05-23 15:20:00 [facility] Respitory Rate 2018-05-23 15:20:00 [facility] Heart Rate 2018-05-23 15:20:00 [facility] Height 2018-05-23 15:20:00 170 cm [facility] Systolic (mm Hg) 2018-05-23 15:20:00 [facility] Diastolic (mm Hg) 2018-05-23 15:20:00 [facility] Systolic (mm Hg) 2018-04-15 21:25:00 [facility] Diastolic (mm Hg) 2018-04-15 21:25:00 [facility] Respitory Rate 2018-04-15 16:40:00 [facility] [place] Heart Rate 2018-04-15 16:40:00 [facility] Systolic (mm Hg) 2018-04-15 16:40:00 [facility] [place] Diastolic (mm Hg) 2018-04-15 16:40:00 [facility] Temperature Oral (F) 2018-04-15 16:40:00 98.2 F [facility] Heart Rate 2018-04-15 13:15:00 [facility] Temperature Oral (F) 2018-04-15 13:15:00 98.0 F [facility] Systolic (mm Hg) 2018-04-15 13:15:00 [facility] [place] Diastolic (mm Hg) 2018-04-15 13:15:00 [facility] [place] Respitory Rate 2018-04-15 13:15:00 [facility] Temperature Oral (F) 2018-04-15 09:31:00 98.2 F [facility] Heart Rate 2018-04-15 09:31:00 [facility] Respitory Rate 2018-04-15 09:31:00 [facility] Weight 2018-04-15 07:53:00 [facility] Weight 2018-04-14 23:25:00 [facility] Height 2018-04-14 23:25:00 172.72 cm [facility] BMI Calculated 2018-04-14 23:25:00 [facility] Systolic (mm Hg) 2018-03-20 16:07:00 [facility] [place] Diastolic (mm Hg) 2018-03-20 16:07:00 [facility] Respitory Rate 2018-03-20 16:07:00 [facility] [place] Heart Rate 2018-03-20 16:07:00 [facility] Temperature Oral (F) 2018-03-20 16:07:00 98.4 F [facility] Systolic (mm Hg) 2018-03-20 12:44:00 [facility] [place] Diastolic (mm Hg) 2018-03-20 12:44:00 [facility] [place] Respitory Rate 2018-03-20 12:44:00 [facility] [place] Heart Rate 2018-03-20 12:44:00 [facility] Temperature Oral (F) 2018-03-20 12:44:00 98.3 F [facility] Respitory Rate 2018-03-20 08:46:00 [facility] Temperature Oral (F) 2018-03-20 08:46:00 98.3 F [facility] Heart Rate 2018-03-20 08:46:00 [facility] Systolic (mm Hg) 2018-03-20 08:46:00 [facility] [place] Diastolic (mm Hg) 2018-03-20 08:46:00 [facility] [place] BMI Calculated 2018-03-17 12:01:00 [facility] [place] Weight 2018-03-17 12:01:00 [facility] Height 2018-03-17 12:01:00 167.64 cm [facility] Weight 2018-03-17 07:27:00 [facility] Temperature Oral (F) 2018-01-23 03:30:00 98.2 F [facility] Respitory Rate 2018-01-23 03:30:00 [facility] Systolic (mm Hg) 2018-01-23 03:30:00 [facility] [place] Diastolic (mm Hg) 2018-01-23 03:30:00 [facility] [place] Respitory Rate 2018-01-23 01:48:00 [facility] [place] Heart Rate 2018-01-23 01:48:00 [facility] Systolic (mm Hg) 2018-01-23 01:48:00 [facility] [place] Diastolic (mm Hg) 2018-01-23 01:48:00 [facility] Temperature Oral (F) 2018-01-23 00:14:00 98.2 F [facility] Respitory Rate 2018-01-23 00:14:00 [facility] [place] Systolic (mm Hg) 2018-01-23 00:14:00 [facility] Diastolic (mm Hg) 2018-01-23 00:14:00 [facility] Heart Rate 2018-01-23 00:14:00 [facility] BMI Calculated 2018-01-23 00:14:00 [facility] [place] Height 2018-01-23 00:14:00 165.1 cm [facility] Weight 2018-01-23 00:14:00 [facility] Systolic (mm Hg) 2017-12-20 12:31:00 [facility] Diastolic (mm Hg) 2017-12-20 12:31:00 [facility] [place] Temperature Oral (F) 2017-12-20 12:31:00 98.0 F [facility] Respitory Rate 2017-12-20 12:31:00 [facility] Heart Rate 2017-12-20 12:31:00 [facility] Systolic (mm Hg) 2017-12-20 05:00:00 [facility] Diastolic (mm Hg) 2017-12-20 05:00:00 [facility] Temperature Oral (F) 2017-12-20 05:00:00 98 F [facility] Heart Rate 2017-12-20 05:00:00 [facility] Respitory Rate 2017-12-20 05:00:00 [facility] [place] Temperature Oral (F) 2017-12-20 01:00:00 97.6 F [facility] Heart Rate 2017-12-20 01:00:00 [facility] Systolic (mm Hg) 2017-12-20 01:00:00 [facility] Diastolic (mm Hg) 2017-12-20 01:00:00 [facility] [place] Respitory Rate 2017-12-20 01:00:00 [facility] BMI Calculated 2017-12-15 16:46:00 [facility] Weight 2017-12-15 16:46:00 [facility] Height 2017-12-15 16:46:00 170.18 cm [facility] Height 2017-12-15 16:11:00 170.18 cm [facility] Weight 2017-12-15 11:31:00 [facility] Procedures Procedure Date / Time Performed Performing Clinician [facility] e Dialysis access site care Maite Badillo Knee maneuver [facility] Shoulder manipulation [facility] Encounters Start End Encounter Admission Attending Care Care Encounter Source Date/Time Date/Time Type Type Clinicians Facility Department ID 2021-11-04 Outpatient 3 [id number] ENCPL JACOB [facility] 12:13:09 [facility] 2021-11-04 Outpatient 3 [id number] ENC[facility] REF [facility] 12:09:58 [facility]19 [facility] [place] [facility] 2021-11-04 Outpatient 3 [id number] ENC[facility] REF [facility] 12:08:30 [facility]14 [facility] [place] 2021-08-06 Emergency [facility] [id number] Univers 17:13:07 [facility] 2021-08-06 [facility] [id number] Univers 10:57:39 OMID [facility] 2021-08-05 [facility] [id number] Univers 21:35:24 TEODORA [facility] 2019-04-05 Inpatient E [facility] MED [id number] B L 20:14:00 2019-04-05 Inpatient YESENIA SHRESTHA [id number] 18:31:48 2022-11-01 2022-11-01 [facility] [id number] Univers 13:30:00 13:30:00 ADILIA ity o f [facility] 2022-10-26 2022-10-26 [facility] 1.2.840.114 [id number] Univers 00:00:00 00:00:00 Management Adilia Clayton MULTISPEC 350.1.13.10 ity emmanuelle VUONG 4.2.7.2.686 [facility] [id number] [address] [facility] 2022-10-14 2022-10-14 Telephone Gamilla-Gabinou [facility] 1.2.840.114 [id number] Univers 00:00:00 00:00:00 Dionne carballo MULTISPEC 350.1.13.10 [place] [id number] [address] [facility] 2022-10-12 2022-10-12 [facility] 1.2.840.114 [id number] Univers 00:00:00 00:00:00 Dionne carballo MULTISPEC 350.1.13.10 [place]2.[place] [id number] [address] [facility] 2022-09-22 2022-09-22 Telephone [facility] 1.2.840.114 [id number] [facility] 00:00:00 00:00:00 Adilia Clayton MULTISPEC 350.1.13.10 ity of IALTY 4.2.7.2.686 [facility] [id number] [address] [facility] 2022-09-06 2022-09-06 Telephone [facility] 1.2.840.114 [id number] Univers 00:00:00 00:00:00 Dionne carballo MULTISPEC 350.1.13.10 [place]2.[place] [id number] [address] [facility] 2022-08-10 2022-08-10 Letter [facility] 1.2.840.114 [id number] Univers 00:00:00 00:00:00 (Out) Adilia Clayton MULTISPEC 350.1.13.10 [place]2.[place] [id number] [address] [facility] 2022-08-04 2022-08-04 Telephone [facility] 1.2.840.114 [id number] Univers 00:00:00 00:00:00 Rufina MULTISPEC 350.1.13.10 [place]2.[place] [id number] [address] [facility] 2022-08-04 2022-08-04 Telephone [facility] 1.2.840.114 [id number] Univers 00:00:00 00:00:00 Adilia A MULTISPEC 350.1.13.10 [place]2.[place] [id number] [address] [facility] 2022-05-02 2022-05-02 Committee [facility] 1.2.840.114 [id number] Univers 00:00:00 00:00:00 Review Adilia Clayton MULTISPEC 350.1.13.10 [place]2.[place] [id number] [address] [facility] 2022-04-27 2022-04-27 Telephone [facility] 1.2.840.114 [id number] Univers 00:00:00 00:00:00 Theresa Rosario MULTISPEC 350.1.13.10 [place]2.7[place]2.[place] [id number] [address] [facility] 2022-04-27 2022-04-27 Abstract [facility] 1.2.840.114 [id number] Univers 00:00:00 00:00:00 Teodora MULTISPEC 350.1.13.10 [place].2.[place]2.[place] [id number] [address] [facility] 2022-04-25 2022-04-25 Telephone [facility] 1.2.840.114 [id number] Univers 00:00:00 00:00:00 Adilia Clayton MULTISPEC 350.1.13.10 ity of IALTY 4.2.7.2.686 [facility] [id number] [address] [facility] 2022-04-22 2022-04-22 Telephone [facility] 1.2.840.114 [id number] Univers 00:00:00 00:00:00 Pat A MULTISPEC 350.1.13.10 [place].2.7.2.[place] [id number] [facility] [address] [facility] 2022-04-21 2022-04-21 [facility] [id number] Univers 08:00:00 08:00:00 PAT ity o f [facility] 2022-03-15 2022-03-15 Abstract [facility] 1.2.994.138 [id number] Univers 00:00:00 00:00:00 Pat A MULTISPEC 350.1.13.10 [place].2.7.2.[place] [id number] [facility] [address] [facility] 2022-01-21 2022-01-21 [facility] 1.2.937.425 [id number] Univers 12:23:00 23:59:00 Encounter Pat A NINI 350.1.13.10 ity of HOSPITAL 4.2.7.2.686 [place] [id number] [facility] [place] [address] 2022-01-21 2022-01-21 Outpatient R [facility] ACO [id number] Univers 00:00:00 00:00:00 PAT ity o f [facility] 2021-09-10 2021-09-10 [facility] 1.2.840.114 [id number] Univers 00:00:00 00:00:00 Carina-Eder PRIMARY 350.1.13.10 it[place] of [place] 4.2.7.2.686 [place] [id number] Mi dical [address] 2021-08-02 2021-08-02 [facility] 1.2.821.879 [id number] Univers 11:53:00 23:59:00 Encounter Pat A NINI 350.1.13.10 ity of HOSPITAL 4.2.7.2.686 [place] [id number] [facility] [place] [address] 2021-08-02 2021-08-02 [facility] [id number] Univers 00:00:00 23:59:00 PAT ity o f [facility] 2021-08-02 2021-08-02 [facility] [id number] Univers 00:00:00 00:00:00 PAT ity o f [facility] 2021-08-02 2021-08-02 Abstract [facility] 1.2.931.126 [id number] Univers 00:00:00 00:00:00 Pat A MULTISPEC 350.1.13.10 [place].2.7.2.[place] [id number] [address] [facility] 2021-07-30 2021-07-30 Abstract [facility] 1.2.624.199 [id number] Univers 00:00:00 00:00:00 Pat A MULTISPEC 350.1.13.10 [place].2.7.2.[place] [id number] [address] [facility] 2021-07-28 2021-07-28 [facility] 1.2.747.958 [id number] Univers 12:38:00 23:59:00 Encounter Adilia Clayton NINI 350.1.13.10 ity of [facility] 4.2.7.2.686 [place] [phone] [address] 2021-07-28 2021-07-28 [facility] [id number] Univers 00:00:00 00:00:00 ity of [facility] 2021-07-09 2021-07-09 Letter [facility] 1.2.840.114 [id number] Univers 00:00:00 00:00:00 (Out) Pat A MULTISPEC 350.1.13.10 [place].2.[place].2.[place] [id number] [address] [facility] 2021-04-22 2021-04-22 Bowl Topper [facility] 1.2.840.114 [id number] Univers 11:34:18 11:49:18 Visit Desirae Teod[facility] 350.1.13.10 [place] of CL[place] 4.2.7.2.[place] [id number] [facility] [place] [address] 2021-04-22 2021-04-22 Office Desirae [facility] 1.2.385.734 [id number] Univers 10:30:14 11:33:56 Visit [facility] 350.1.13.10 i ty of CLINICS 4.2.7.2.[place] [id number] [facility] [place] [address] 2021-04-22 2021-04-22 [facility] 1.2.794.542 [id number] 10:30:14 11:33:56 Visit [facility] 350.1.13.10 CLINICS 4.2.7.2.686 [id number] [facility] 2021-04-22 2021-04-22 [facility] [id number] Univers 10:45:00 10:45:00 TEODORA ity [facility] 2021-04-21 2021-04-21 Telephone [facility] 1.2.840.114 [id number] Univers 00:00:00 00:00:00 Pat A MULTISPEC 350.1.13.10 ity of IALTY 4.2.7.2.686 [facility] [place] [id number] [address] [facility] 2021-04-21 2021-04-21 Telephone [facility] 1.2.840.114 [id number] Univers 00:00:00 00:00:00 Pat A MULTISPEC 350.1.13.10 ity of IALTY 4.2.7.2.686 [facility] [place] [id number] [address] [facility] 2021-04-20 2021-04-20 Abstract [facility] 1.2.042.736 [id number] Univers 00:00:00 00:00:00 Pat A MULTISPEC 350.1.13.10 [place]2.[place].2.[place] [id number] [facility] [place] [facility] [address] [facility] 2021-04-07 2021-04-07 [facility] 1.2.451.946 [id number] Univers 11:37:00 23:59:00 Encounter Pat A NINI 350.1.13.10 ity of HOSPITAL 4.2.7.2.686 [place] [id number] [facility] [place] [address] 2021-04-07 2021-04-07 Outpatient R [facility] ACO [id number] Univers 00:00:00 00:00:00 PAT ity o f [facility] 2021-04-01 2021-04-01 [facility] 1.2.676.015 [id number] Univers 10:38:32 23:59:00 Encounter Pat A SPECIALTY 350.1.13.10 it[place] C[place]2.7.2.[place] [id number] Mi cristianaks [place] [address] [place] [address] 2021-04-01 2021-04-01 Outpatient [facility] [id number] Univers 12:00:00 12:00:00 PAT ity o f [facility] 2021-04-01 2021-04-01 [facility] 1.2.390.213 [id number] Univers 10:37:49 10:37:49 Encounter Pat A SPECIALTY 350.1.13.10 [place] C[place]2.7.2.[place] AT [id number] Mi mairo READ 805 [facility] 2021-04-01 2021-04-01 [facility] 1.2.394.756 [id number] Univers 10:37:17 10:37:17 Encounter Pat A SPECIALTY 350.1.13.10 it[place] C[place].2.7.2.[place] AT [id number] Mi mario READ 805 [facility] 2021-04-01 2021-04-01 [facility] 1.2.579.139 [id number] Univers 10:36:10 10:36:10 Encounter Adilia Clayton SPECIALTY 350.1.13.10 ity of CARE 4.2.7.2.686 [facility] AT [id number] Mi mario READ 5 [facility] 2021-03-29 2021-03-29 Telephone [facility] 1.2.840.114 [id number] Univers 00:00:00 00:00:00 Dionne carballo MULTISPEC 350.1.13.10 ity of IALTY 4.2.7.2.686 [facility] [place] [id number] [facility] [address] [facility] 2021-03-25 2021-03-25 Outpatient [facility] [id number] Univers 12:00:00 12:00:00 PAT ity o [facility] 2021-03-25 2021-03-25 Abstract [facility] 1.2.840.114 [id number] Univers 00:00:00 00:00:00 Dionne carballo MULTISPEC 350.1.13.10 ity of IALTY 4.2.7.2.686 [facility] [place] [phone] [facility] [address] [facility] 2021-03-16 2021-03-16 Outpatient R [facility] [id number] Univers 10:00:00 10:00:00 PAT ity o [facility] 2021-02-19 2021-02-19 Telephone [facility] .2.840.114 [id number] Univers 00:00:00 00:00:00 Adilia Clayton MULTISPEC 350.1.13.10 ity of IALTY 4.2.7.2.686 [facility] [id number] [address] [facility] 2021-02-18 2021-02-18 Outpatient R [facility] [id number] Univers 11:00:00 11:00:00 PAT ity o [facility] 2021-02-03 2021-02-03 Abstract [facility] 1.2.398.475 [id number] Univers 00:00:00 00:00:00 Pat A MULTISPEC 350.1.13.10 ity [place]2.7.2.686 [place] [id number] [address] [facility] 2021-01-21 2021-01-21 Outpatient R [facility] [id number] Univers 08:00:00 08:00:00 PAT ity o [facility] 2021-01-08 2021-01-08 Letter [facility] 1.2.840.114 [id number] Univers 00:00:00 00:00:00 (Out) Pat A MULTISPEC 350.1.13.10 ity of IALTY 4.2.7.2.686 [facility] [id number] [address] [facility] 2021-01-06 2021-01-06 Telephone [facility] [id number] [facility] 00:00:00 00:00:00 Pat A MULTISPEC [id number] ity of IALTY [id number] [facility] [id number] [address] [facility] 2020-12-18 2020-12-18 Telephone [facility] [id number] [facility] 00:00:00 00:00:00 Pat A MULTISPEC [id number] ity of IALTY [id number] [facility] [id number] [address] [facility] 2020-12-17 2020-12-17 Outpatient [facility] [id number] [facility] 08:00:00 08:00:00 PAT ity o [facility] 2020-12-01 2020-12-01 Telephone [facility] 1.2.840.114 [id number] [facility] 00:00:00 00:00:00 Pat A MULTISPEC [id number] [id number] [id number] [address] [facility] 2020-11-12 2020-11-12 Telephone [facility] 1.2.840.114 [id number] [facility] 00:00:00 00:00:00 Pat A MULTISPEC [id number] [id number] [facility] [id number] [address] [facility] 2020-11-12 2020-11-12 Abstract [facility] [id number] [facility] 00:00:00 00:00:00 Pat A MULTISPEC 350.1.13.10 [place] [id number] [address] [facility]ES [facility]INIC 2020-10-30 2020-10-30 [facility] 1.2.452.686 [id number] Univers 14:23:00 23:59:00 Encounter Pat Forrest NINI 350.1.13.10 ity of [place] [address].2.7.2.68 [place] [phone] [address] 2020-10-30 2020-10-30 Outpatient R [facility]RIE [facility] ACO [id number] Univers 00:00:00 00:00:00 PAT ity o f [facility] 2020-08-28 2020-08-28 Abstract [facility] 1.2.735.911 [id number] Univers 00:00:00 00:00:00 Pat A MULTISPEC 350.1.13.10 [place] [phone] [address] DIABETES CLINIC 2020-08-06 2020-08-13 Inpatient nullFlavo [facility] [id number] Memoria 18:41:30 00:50:00 adalberto Marlo 12 l [facility] 2020-08-06 2020-08-13 Inpatient nullFlavo [facility] [id number] Memoria 18:41:30 00:50:00 r Marlo 12 l [facility] 2020-08-06 2020-08-12 Inpatient E BRIEN, MHBL MED 7512 MHBL 20:29:00 18:50:00 SHANNA 2020-08-06 2020-08-12 Outpatient Brien, MHPL MHPL [id number] 13:41:30 18:50:00 Shanna 12 2020-08-06 2020-08-06 Outpatient Paulo Hong MHPL MHPL [id number] 13:41:30 13:41:30 Bulmaro 12 2020-07-27 2020-07-27 Outpatient R JOHN YORK [facility] [id number] Univers 14:30:00 14:30:00 [facility] 2020-07-24 2020-07-24 Emergency nullFlavo [facility] [id number] Memoria 12:53:57 16:22:00 r Marlo [address] [facility] [place] [place] 2020-07-24 2020-07-24 Emergency [facility]Flavo [facility] [id number] Memoria 12:53:57 16:22:00 r Marlo [address] [facility] [place] [place] 2020-07-24 2020-07-24 Outpatient Vishnyakova MHPL MHPL [id number] 07:53:57 11:22:00 , Cecy 11 2020-07-24 2020-07-24 Emergency E VISHNYAKOVA BL MHBL [id number] MHBL 07:53:00 11:22:00 , CECY 2020-07-06 2020-07-15 Inpatient [facility]Flavo [facility] [id number] Memoria 10:06:46 22:00:00 r Marlo [address] [facility] [place] [place] 2020-07-06 2020-07-15 Inpatient [facility]Flavo [facility] [id number] Memoria 10:06:46 22:00:00 r Marlo [address] [facility] [place] [place] 2020-07-06 2020-07-15 Outpatient Brien, MHPL MHPL [id number] 05:06:46 17:00:00 Hsanna 10 2020-07-06 2020-07-06 Inpatient E VALERIEVA, MHBL MED 7510 MHBL 08:50:00 05:06:00 MELIZA 2020-06-24 2020-06-24 Transition Linda Green 1.2.840.114 [id number] Univers 00:00:00 00:00:00 of Care Jair Alejandrey 350.1.13.10 it[place] of [place]2.7.2.[place] [phone] [facility] [place] [address] 2020-06-20 2020-06-23 [facility] Quita Guzman 1.2.840.1 14 [id number] Univers 14:27:00 18:40:00 Encounter HeribertoPam Nini 350.1.13.10 ity of [facility] 4.2.7.2.686 [place] [id number] [facility] [place] [address] 2020-05-21 2020-05-21 Emergency nullFlavo [facility] [id number] Memoria 13:09:59 15:59:00 r Marlo [address] [facility] [place] [place] 2020-05-21 2020-05-21 Emergency [facility]Flavo [facility] [id number] Memoria 13:09:59 15:59:00 r Marlo [address] [place] [address] 2020-05-21 2020-05-21 Outpatient BHAVIN Rachel MHPL [id number] 08:09:59 10:59:[address] 2020-05-21 2020-05-21 Emergency E YU RACHEL MHBL 7509 MHBL 08:09:00 10:59:00 TREVOR 2020-05-13 2020-05-13 Case Kole [facility] 1.2.245.977 [id number] Univers 00:00:00 00:00:00 Management Omid HEMPHILL 350.1.13.10 ity of SCIENCES 4.2.7.2.686 [place] as BLDG [phone] [facility] [place] 020 Branch 2020-05-13 2020-05-13 Telephone John York [facility] 1.2.840.114 [id number] Univers 00:00:00 00:00:00 Corby SPECIALTY 350.1.13.10 ity of [place].2.[place] AT [phone] Mi mario [address] 2020-05-01 2020-05-01 Abstract Pretty [facility] 1.2.943.240 [id number] Univers 00:00:00 00:00:00 Adilia A MULTISPEC 350.1.13.10 it[place] [id number] [facility] [place] AND STOCK [address] [facility]AB[facility]ES [facility]INIC 2020-04-28 2020-04-28 [facility] 1.2.840.114 [id number] Univers 11:00:00 23:59:00 Encounter Paulina Ulrich SPECIALTY 350.1.13.10 it[place].2.[place] AT [phone] Mi mario READ 801 [facility] 2020-04-28 2020-04-28 Outpatient R JOHN YORK [facility] [id number] Univers 15:30:00 15:30:00 ity of [facility] 2020-04-28 2020-04-28 Telemedici [facility] 1.2.840.114 [id number] Univers 07:00:15 07:30:15 ne Visit Corby SPECIALTY 350.1.13.10 it[place] of C[place].2.[place].2.[place] AT [phone] Mi mario THREE SPRINGSSandhya 072 [facility] 2020-04-23 2020-04-23 Orders Doctor YESENIA 1.2.840.114 [id number] Univers 00:00:00 00:00:00 Only Unassigned, NINI 350.1.13.10 ity of [place] HOSPITAL 4.2.7.2.686 [place] as [phone] [facility] [place] [address] Branch 2020-04-21 2020-04-21 Telephone [facility] 1.2.641.892 [id number] Univers 00:00:00 00:00:00 Teodora SPECIALTY 350.1.13.10 ity of CARE 4.2.7.2.686 [facility] AT [phone] Mi cristianapranav BOXSandhya 189 [facility] 2020-04-06 2020-04-06 [facility] 1.2.361.385 [id number] Univers 00:00:00 00:00:00 Adilia A MULTISPEC 350.1.13.10 it[place] [id number] [facility] [address] DIABETES CLINIC 2020-04-01 2020-04-01 Transition Linda Green 1.2.840.114 [id number] Univers 00:00:00 00:00:00 of Care Jair Davila 350.1.13.10 [place] of [place]2.[place].2.[place] [phone] [facility] [place] [address] 2020-03-23 2020-03-30 Inpatient [facility] STX [id number] Univers 12:01:00 16:00:00 RUPAK ity of [facility] 2020-03-23 2020-03-30 [facility] Janee Cleaning 1.2.840.114 [id number] Univers 12:01:00 16:00:00 Encounter Angie Terrazas 350.1.13.10 ity of [facility] 4.2.7.2.686 [place] [phone] [facility] [place] 0[address] 2020-03-30 2020-03-30 Telephone [facility] 1.2.840.904 [id number] Univers 00:00:00 00:00:00 Teodora MULTISPEC 350.1.13.10 it[place] [phone] [facility] [address] DIABETES CLINIC 2020-03-30 2020-03-30 Case YESENIA Enriquez 1.2.800.135 [id number] Univers 00:00:00 00:00:00 Management Anna TERRAZAS 350.1.13.10 ity of [facility] 4.2.7.2.686 [place] Neela [phone] [facility] [place] [address] 2020-03-23 2020-03-23 Emergency [facility] [id number] Memoria 05:18:16 15:31:[address] [facility] [place] [place] 2020-03-23 2020-03-[address] [address] [facility] [id number] Memoria 05:18:16 15:31:[address] [facility] [place] [place] 2020-03-23 2020-03-[address] [id number] 00:18:16 10:31:00 Mehga Tim 08 2020-03-23 2020-03-23 Emergency E TERESA, MHBL MHBL [id number] MHBL 00:18:00 10:31:00 MEGHA 2020-03-17 2020-03-17 [facility] YESENIA Eldridge 1.2.840.114 [id number] Univers 09:23:34 23:59:00 Encounter Ramses NINI 350.1.13.10 ity of HOSPITAL 4.2.7.2.686 [place] as [phone] [facility] [place] 0[address] 2020-03-13 2020-03-13 [facility] PRATEEK Merrill 1.2.336.056 [id number] Univers 00:00:00 00:00:00 Management Teodora LUCAS 350.1.13.10 ity of CLINICS [place].2.7.2.[place] [phone] [facility] [place] [address] 2020-03-12 2020-03-12 Outpatient R DESIRAE [facility] [id number] Univers 13:30:00 13:30:00 TEODORA ity of [facility] 2020-03-12 2020-03-12 Telemedici Ileanaaddy [facility] 1.2.840.114 [id number] Univers 12:21:58 12:51:58 ne Visit Teodora LUCAS 350.1.13.10 ity of CLINICS 4.2.7.2.[place] [id number] [facility] [address] 2020-03-05 2020-03-05 [facility] Celeste Merrillnie 1.2.840.114 [id number] Univers 10:50:00 17:31:00 Encounter Teodora Terrazas 350.1.13.10 ity of Hospital 4.2.7.2.686 [place] [phone] [facility] [place] [address] 2020-03-05 2020-03-05 Orders Doctor YESENIA 1.2.840.114 [id number] Univers 00:00:00 00:00:00 Only Unassigned, NINI 350.1.13.10 ity of [place] HOSPITAL 4.2.7.2.686 [place] [phone] [facility] [place] 009 Branch 2020-03-04 2020-03-04 Laboratory Only, Adc Test [facility] 1.2.840. 114 [id number] Univers 15:20:13 15:35:13 Only Teodora Merrill 350.1.13.[address] [facility] [id number] [address] 2020-03-04 2020-03-04 Outpatient R DESIRAE [facility] [id number] Univers 15:00:00 15:00:00 TEODORA itsandhya [facility] 2020-02-13 2020-02-13 [facility] 1.2.840.114 [id number] Univers 00:00:00 00:00:00 Management Clayton JORDAN 350.1.13.10 ity of [place] 4.2.7.2.686 [facility] [phone] [address] DIABETES [facility] 2020-02-03 2020-02-[address] [facility] [id number] Memoria 19:07:14 23:44:00 r Marlo [address] [place] [address] 2020-02-03 2020-02-03 Emergency [facility] [id number] Memoria 19:07:14 23:44:00 r Marlo [address] [place] [address] 2020-02-03 2020-02-03 Outpatient BHAVIN Faulkner MHPL [id number] 14:07:14 18:44:00 Marci French 07 2020-02-03 2020-02-03 [place]U [place] [address] [facility] 14:07:00 18:44:00 MARCI 2020-01-22 2020-01-22 [facility] 1.2.835.611 [id number] Univers 00:00:00 00:00:00 Adilia JORDAN 350.1.13.10 ity of [place] 4.2.7.2.686 [facility] [phone] [address] DIABETES [facility] 2020-01-08 2020-01-08 [facility] YESENIA Eldridge 1.2.840.114 [id number] Univers 11:14:48 23:59:00 Encounter Ramses TERRAZAS 350.1.13.10 ity of HOSPITAL 4.2.7.2.686 [place] [phone] [place] [address] Branch 2020-01-08 2020-01-08 [facility] [id number] Univers 00:00:00 00:00:00 RAMSES lam o f [facility] 2019-12-19 2019-12-19 [facility] 1.2.361.654 [id number] Univers 00:00:00 00:00:00 Adilia Clayton MULTISPEC 350.1.13.10 it[place] [id number] [address] DIABETES CLINIC 2019-12-18 2019-12-18 Telephone [facility] 1.2.857.082 [id number] Univers 00:00:00 00:00:00 Clayton MULTISPEC 350.1.13.10 ity of IALTY 4.2.7.2.686 [facility] [id number] [address] DIABETES CLINIC 2019-12-13 2019-12-13 [place] [facility] 1.2.029.499 [id number] Univers 00:00:00 00:00:00 Teodora SPECIALTY 350.1.13.10 ity of CARE 4.2.7.2.686 [facility] AT [phone] [address] 2019-12-13 2019-12-13 Case [facility] 1.2.840.114 [id number] Univers 00:00:00 00:00:00 Management Teodora MULTISPEC 350.1.13.10 [place] of [place] [id number] [address] DIABETES CLINIC 2019-12-10 2019-12-10 Case [facility] 1.2.840.114 [id number] Univers 00:00:00 00:00:00 Management Teodora MULTISPEC 350.1.13.10 ity of IALTY 4.2.7.2.686 [facility] [phone] [address] DIABETES CLINIC 2019-12-10 2019-12-10 Letter [facility] 1.2.840.114 [id number] Univers 00:00:00 00:00:00 (Out) Pat A MULTISPEC 350.1.13.10 it[place] of [place].2.[place].2.[place] [id number] [address] DIABETES [facility] 2019-12-10 2019-12-10 Abstract [facility] 1.2.336.667 [id number] Univers 00:00:00 00:00:00 Pat A MULTISPEC 350.1.13.10 ity of [place] 4.2.7.2.[place] [phone] [address] DIABETES CLINIC 2019-12-10 2019-12-10 Telephone [facility] 1.2.840.114 [id number] Univers 00:00:00 00:00:00 Pat A MULTISPEC 350.1.13.10 ity of IALTY 4.2.7.2.686 [facility] [phone] [address] DIABETES CLINIC 2019-12-10 2019-12-10 Telephone [facility] 1.2.840.114 [id number] Univers 00:00:00 00:00:00 Pat A MULTISPEC 350.1.13.10 it[place] of [place].2.[place].2.[place] [id number] [address] DIABETES CLINIC 2019-12-10 2019-12-10 Telephone [facility] 1.2.840.114 [id number] Univers 00:00:00 00:00:00 Pat A MULTISPEC 350.1.13.10 it[place] of [place].2.[place].2.[place] [id number] [address] DIABETES CLINIC 2019-12-10 2019-12-10 Telephone [facility] 1.2.960.477 [id number] Univers 00:00:00 00:00:00 Teodora MULTISPEC 350.1.13.10 ity of [place] 4.2.7.2.[place] [id number] [address] DIABETES CLINIC 2019-11-19 2019-11-19 Telephone Desirae [facility] 1.2.077.551 [id number] Univers 00:00:00 00:00:00 Teodora MULTISPEC 350.1.13.10 ity of [place] 4.2.7.2.686 [place] [id number] [address] DIABETES CLINIC 2019-11-14 2019-11-14 Office Teodora Merrill [facility] 1.2.840.114 [id number] Univers 09:07:17 10:35:09 Visit Adilia Olsen MULTISPEC 350.1.13 .10 ity of [place] 4.2.7.2.[place] [id number] [address] DIABETES [facility] 2019-11-07 2019-11-07 Office Angie Cleaning [facility] 1.2. 840.114 [id number] Univers 09:48:36 16:20:31 Visit Adilia Olsen MULTISPEC 350.1.13 .10 it[place] of [place] 4.2.[place].2.[place] [id number] [address] DIABETES [facility] 2019-10-29 2019-11-06 Inpatient [facility] [id number] Memoria 00:57:20 02:15:[address] [facility] [place] [place] 2019-10-29 2019-11-06 Inpatient [facility] [id number] Memoria 00:57:20 02:15:[address] [facility] [place] [place] 2019-10-28 2019-11-05 Outpatient Moses, MHPL MHPL [id number] 18:57:20 20:15:00 2019-10-30 2019-10-28 Inpatient E MHBL MED [id number] MHBL 14:55:00 23:23:00 2019-08-16 2019-08-20 Inpatient [facility] [id number] Memoria 00:36:00 19:40:[address] [facility] [place] [place] 2019-08-16 2019-08-20 Inpatient [facility] [id number] Memoria 00:36:00 19:40:00 r Wellington 10 l [facility] 2019-08-15 2019-08-[address] [place] [id number] 18:36:00 13:40:00 Debi 10 2019-08-15 2019-08-14 Inpatient U MHBL MED [id number] MHBL 18:36:00 15:56:00 2019-07-08 2019-07-08 Committee [facility] 1.2.036.058 [id number] [facility] 00:00:00 00:00:00 Review Teodora MULTISPEC 350.1.13.10 ity of IALTY 4.2.7.2.686 [facility] [place] [phone] [facility] [address] DIABETES [facility] 2019-07-08 2019-07-08 Abstract [facility] 1.2.612.132 [id number] Univers 00:00:00 00:00:00 Adilia Clayton MULTISPEC 350.1.13.10 ity of IALTY 4.2.7.2.686 [facility] [place] [id number] [facility] [address] DIABETES [facility] 2019-06-20 2019-06-20 Telephone [facility] 1.2.840.114 [id number] Univers 00:00:00 00:00:00 Adilia Clayton MULTISPEC 350.1.13.10 ity of IALTY 4.2.7.2.686 [facility] [place] [phone] [address] DIABETES [facility] 2019-06-17 2019-06-17 [facility] 1.2.283.271 [id number] Univers 14:03:07 23:59:00 Encounter Pat A Dendron 350.1.13.10 ity of [place] 4.2.7.2.686 [facility] [place] [phone] [facility] [place] [address] 2019-06-17 2019-06-17 Orders Doctor YESENIA 1.2.840.114 [id number] Univers 00:00:00 00:00:00 Only Unassigned, NINI 350.1.13.10 ity of [place] HOSPITAL 4.2.7.2.686 [place] as [phone] [address] 2019-06-17 2019-06-17 Telephone [facility] 1.2.840.114 [id number] Univers 00:00:00 00:00:00 Pat A MULTISPEC 350.1.13.10 ity of [place] 4.2.7.2.686 [place] [id number] [facility] [address] DIABETES [facility] 2019-05-23 2019-05-23 Telephone [facility] 1.2.840.114 [id number] Univers 00:00:00 00:00:00 Pat A MULTISPEC 350.1.13.10 ity of [place] 4.2.7.2.[place] [phone] [address] DIABETES [facility] 2019-05-21 2019-05-21 Telephone [facility] 1.2.840.114 [id number] Univers 00:00:00 00:00:00 Pat A MULTISPEC 350.1.13.10 ity of [place].2.7.2.[place] [id number] [address] DIABETES [facility] 2019-05-09 2019-05-09 Orders Doctor YESENIA 1.2.840.114 [id number] Univers 00:00:00 00:00:00 Only Unassigned, NINI 350.1.13.10 ity of [place] [facility] 4.2.7.2.686 [place] as [phone] [address] 2019-04-06 2019-04-08 Inpatient [facility] [id number] Memoria 01:14:00 21:53:[address] 2019-04-06 2019-04-08 Inpatient [facility] [id number] Memoria 01:14:00 21:53:[address] 2019-04-05 2019-04-08 Outpatient BHAVIN Soto [id number] 20:14:00 16:53:00 Bandar 79 2018-10-17 2018-10-17 Out[id number] Univers 00:00:00 23:59:00 RAMSES valdes [facility] 2018-07-22 2018-07-24 Inpatient [facility] [id number] Memoria 01:45:00 23:05:00 r Marol [address] [facility] [place] [place] 2018-07-22 2018-07-24 Inpatient [facility] [id number] Memoria 01:45:00 23:05:00 adalberto Sellers [address] [facility] [place] [place] 2018-07-21 2018-07-24 Outpatient Starla MHPL MHPL [id number] 20:45:00 18:05:00 , Roger Herrera 2018-07-20 2018-07-21 Emergency [facility] [id number] Memoria 22:20:00 02:38:00 adalberto Sellers [address] [facility] [place] [place] 2018-07-20 2018-07-21 Emergency [facility] [id number] Memoria 22:20:00 02:38:00 adalberto Sellers [address] [place] [address] 2018-07-20 2018-07-[address] MHPL [id number] 17:20:00 21:38:00 Cecy 04 2018-05-23 2018-06-22 OP nullFlavo Transplant [id number] Memoria 14:47:00 04:59:00 Transplant r Center 00 l [facility] 2018-05-23 2018-06-22 OP nullFlavo Transplant [id number] Memoria 14:47:00 04:59:00 Transplant r Center 00 l [facility] 2018-05-23 2018-06-21 Outpatient De [facility] [id number] 09:47:00 23:59:00 Roosevelt Ledezma 2018-04-14 2018-04-15 Observatio [facility] [id number] Memoria 23:17:00 21:55:00 n adalberto Sellers [address] [facility] [place] [place] 2018-04-14 2018-04-15 Observatio [facility] [id number] Memoria 23:17:00 21:55:00 n adalberto Sellers [address] [facility] [place] [place] 2018-04-14 2018-04-15 Outpatient Ajibade, PL PL [id number] 18:17:00 16:55:00 David 03 Nerissae 2018-03-17 2018-03-20 Inpatient [facility] [id number] Memoria 07:25:00 22:12:00 r Marlo [address] [facility] [place] [place] 2018-03-17 2018-03-20 Inpatient [facility] [id number] Memoria 07:25:00 22:12:00 r Marlo [address] [facility] [place] [place] 2018-03-17 2018-03-20 Outpatient Sun[place], PL PL [id number] 02:25:00 17:12:00 2018-01-22 2018-01-23 Emergency [facility] [id number] Memoria 23:36:00 03:58:[address] [facility] [place] [place] 2018-01-22 2018-01-23 Emergency [facility] [id number] Memoria 23:36:00 03:58:00 r Marlo [address] [facility] [place] [place] 2018-01-22 2018-01-22 [place] [id number] 18:36:00 22:58:00 Osvaldo Asaf Lee 2017-12-15 2017-12-20 Inpatient [facility] [id number] Memoria 11:29:00 18:55:[address] [facility] [place] [place] 2017-12-15 2017-12-20 Inpatient [facility] [id number] Memoria 11:29:00 18:55:[address] [facility] [place] 2017-12-15 2017-12-20 Outpatient Moses, PL PL [id number] 05:29:00 13:55:00 Peter 00 Results Test Description Test Time Test Comments Results Result Comments Source CHEM PANEL 2020-08-12 09:42:00 Test Item Value Reference Range Interpretation Comme nts Glucose Lvl (test code = Glucose Lvl) 79 70-99 [facility]2020-11-04 09:42:00 Test Item Value Reference Range Interpretation Comments BUN (test code = BUN) 21 7-22 [facility]2020-11-04 09:42:00 Test Item Value Reference Range Interpretation Comments Creatinine Lvl (test code = Creatinine 7.93 0.50-1.40 Lvl) [place] [address]-11-04 09:42:00 Test Item Value Reference Range Interpretation Comments Sodium Lvl (test code = Sodium Lvl) 139 135-145 [place] [address]-11-04 09:42:00 Test Item Value Reference Range Interpretation Comments Potassium Lvl (test code = Potassium 3.2 3.5-5.1 Lvl) [place] [address]-11-04 09:42:00 Test Item Value Reference Range Interpretation Comments Chloride Lvl (test code = Chloride Lvl) 104 95-109 [place] [address]-11-04 09:42:00 Test Item Value Reference Range Interpretation Comments CO2 (test code = CO2) 27 24-32 [place] [address]-11-04 09:42:00 Test Item Value Reference Range Interpretation Comments Calcium Lvl (test code = Calcium Lvl) 8.8 8.5-10.5 [place] [address]-11-04 09:42:00 Test Item Value Reference Range Interpretation Comments AGAP (test code = AGAP) 11.2 10.0-20.[address]04 09:42:00 Test Item Value Reference Range Interpretation Comments eGFR (test code = eGFR) 7 [place] [address]-11-04 09:42:00 Test Item Value Reference Range Interpretation Comments Neutrophils # (test code = Neutrophils 4.7 1.5-8.1 #) [place] [address]-11-04 09:42:00 Test Item Value Reference Range Interpretation Comments Lymphocytes # (test code = Lymphocytes 1.2 1.0-5.5 #) [place] [address]-11-04 09:42:00 Test Item Value Reference Range Interpretation Comments Monocytes # (test code 0.2 See_Comment [Aut omated message] The = Monocytes #) system which generated this result tra nsmitted reference range : <=0.8. The reference r yared was not used to int erpret this result as normal/abnormal . [place] 436[address]-11-04 09:42:00 Test Item Value Reference Range Interpretation Comments Eosinophils # (test code 0.2 See_Comment [A utomated message] The = Eosinophils #) system whic h generated this result tra nsmitted reference range : <=0.5. The reference r yared was not used to int erpret this result as normal/abnormal . [id number]:00 Test Item Value Reference Range Interpretation Comments Segs (test code = Segs) 71.0 45.0-75.0 [id number] 09:42:00 Test Item Value Reference Range Interpretation Comments Bands (test code = 2.0 See_Comment [Automat ed message] The Bands) system which ge nerated this result transmit emerson reference range : <=11.0. The reference r yared was not used to interpr et this result as erinn l/abnormal. [id number] 09:42:00 Test Item Value Reference Range Interpretation Comments Lymphocytes (test code = Lymphocytes) 18.0 20.0-40.0 [id number] 09:42:00 Test Item Value Reference Range Interpretation Comments Monocytes (test code = Monocytes) 3.0 2.0-12.0 [facility] CenterPisnkicGDNAGOVFIV2064-44-34 09:42:00 Test Item Value Reference Range Interpretation Comments Eosinophils (test code = 3.0 See_Comment [A utomated message] The Eosinophils) system which ge nerated this result tra nsmitted reference range : <=4.0. The reference r yared was not used to int erpret this result as normal/abnormal . [facility] CenterHyovbznILCWSQOHSZ2513-96-46 09:42:00 Test Item Value Reference Range Interpretation Comments Metamyelocytes (test code 2.0 See_Comment [ Automated message] = Metamyelocytes) The system which generated this result transmitted ref erence range: <=1.0. T he reference range was not used to int erpret this result as normal/abnormal . [facility] CenterFmrtszjBNEMGFQPWB0572-93-04 09:42:00 Test Item Value Reference Range Interpretation Comments Myelocytes (test code = Myelocytes) 1.0 [facility] CenterYkuysfxVOKOKRRJQI0435-75-68 09:42:00 Test Item Value Reference Range Interpretation Comments Atypical Lymphs (test code = Atypical 0.0 Lymphs) [facility] CenterAsgpynmVUGNYYRMET2108-34-32 09:42:00 Test Item Value Reference Range Interpretation Comments NRBC (test code = NRBC) 1 [place] 922080-11-04 09:42:00 Test Item Value Reference Range Interpretation Comments RBC Morph (test code = Normal (08/12/20 3:42 RBC Morph) AM) [facility] CenterXeyehvnBNLJRFWDKX6057-32-42 09:42:00 Test Item Value Reference Range Interpretation Comments Plt Morph (test code = Normal (08/12/20 3:42 Plt Morph) AM) [facility] CenterKwafmbrTZRBRCCTPJ3904-41-07 09:42:00 Test Item Value Reference Range Interpretation Comments Tot Cell Ct (test code = Tot Cell Ct) 100 1 [facility] CenterDvfckbtNEOKOUNUCT0608-00-13 09:42:00 Test Item Value Reference Range Interpretation Comments Polychrom (test code = Moderate *ABN*(08/12/20 Polychrom) 3:42 AM) [facility] CenterEsvtulvZSMALUUFZI0661-19-71 09:42:00 Test Item Value Reference Range Interpretation Comments WBC (test code = WBC) 6.4 3.7-10.4 [facility] CenterHninkdzOVDZHSILKJ4036-43-40 09:42:00 Test Item Value Reference Range Interpretation Comments RBC (test code = RBC) 3.02 4.70-6.10 [facility] CenterAhjbrvyPMESBTOTDF7674-52-91 09:42:00 Test Item Value Reference Range Interpretation Comments Hgb (test code = Hgb) 9.0 14.0-18.0 [facility] CenterBuzvbeuCMYPOAFLXY0781-44-67 09:42:00 Test Item Value Reference Range Interpretation Comments Hct (test code = Hct) 25.9 42.0-54.0 [facility] CenterKnsyxrzLWAIRDHDHA1529-64-99 09:42:00 Test Item Value Reference Range Interpretation Comments MCV (test code = MCV) 85.7 80.0-94.0 [facility] CenterLztiyjlHPKKWCDPNG2214-40-00 09:42:00 Test Item Value Reference Range Interpretation Comments MCH (test code = MCH) 30.0 pg 27.0-31.0 [facility] CenterTsktqguKMLGAQVQJJ3204-24-44 09:42:00 Test Item Value Reference Range Interpretation Comments MCHC (test code = MCHC) 34.9 32.0-36.0 [facility] CenterFoybytgSJZCTFORZA0044-88-79 09:42:00 Test Item Value Reference Range Interpretation Comments RDW (test code = RDW) 14.8 11.5-14.5 [facility] CenterAcgomyjZWUNYDTDZD2375-57-72 09:42:00 Test Item Value Reference Range Interpretation Comments Platelet (test code = Platelet) 169 133-450 [facility] CenterDojwtcxKTZDPRMPFL1102-06-77 09:42:00 Test Item Value Reference Range Interpretation Comments MPV (test code = MPV) 7.0 7.4-10.4 [facility]2020-11-04 09:42:00 Test Item Value Reference Range Interpretation Comments Glucose Lvl (test code = Glucose Lvl) 79 70-99 [facility]2020-11-04 09:42:00 Test Item Value Reference Range Interpretation Comments BUN (test code = BUN) 21 7-22 [facility]2020-11-04 09:42:00 Test Item Value Reference Range Interpretation Comments Creatinine Lvl (test code = Creatinine 7.93 0.50-1.40 Lvl) [facility]2020-11-04 09:42:00 Test Item Value Reference Range Interpretation Comments Sodium Lvl (test code = Sodium Lvl) 139 135-145 [facility]2020-11-04 09:42:00 Test Item Value Reference Range Interpretation Comments Potassium Lvl (test code = Potassium 3.2 3.5-5.1 Lvl) [facility]2020-11-04 09:42:00 Test Item Value Reference Range Interpretation Comments Chloride Lvl (test code = Chloride Lvl) 104 95-109 [facility]2020-11-04 09:42:00 Test Item Value Reference Range Interpretation Comments CO2 (test code = CO2) 27 24-32 [facility]2020-11-04 09:42:00 Test Item Value Reference Range Interpretation Comments Calcium Lvl (test code = Calcium Lvl) 8.8 8.5-10.5 [facility]2020-11-04 09:42:00 Test Item Value Reference Range Interpretation Comments AGAP (test code = AGAP) 11.2 10.0-20.0 [facility]2020-11-04 09:42:00 Test Item Value Reference Range Interpretation Comments eGFR (test code = eGFR) 7 [facility]2020-11-04 09:42:00 Test Item Value Reference Range Interpretation Comments Glucose Lvl (test code = Glucose Lvl) 79 70-99 [place] [address]-11-04 09:42:00 Test Item Value Reference Range Interpretation Comments BUN (test code = BUN) 21 7-22 [place] 124950-11-04 09:42:00 Test Item Value Reference Range Interpretation Comments Creatinine Lvl (test code = Creatinine 7.93 0.50-1.40 Lvl) [place] 124950-11-04 09:42:00 Test Item Value Reference Range Interpretation Comments Sodium Lvl (test code = Sodium Lvl) 139 135-145 [place] [address]-11-04 09:42:00 Test Item Value Reference Range Interpretation Comments Potassium Lvl (test code = Potassium 3.2 3.5-5.1 Lvl) [place] 124950-11-04 09:42:00 Test Item Value Reference Range Interpretation Comments Chloride Lvl (test code = Chloride Lvl) 104 95-109 [place] [address]-11-04 09:42:00 Test Item Value Reference Range Interpretation Comments Neutrophils # (test code = Neutrophils 4.7 1.5-8.1 #) [place] 124950-11-04 09:42:00 Test Item Value Reference Range Interpretation Comments CO2 (test code = CO2) 27 24-32 [place] 124950-11-04 09:42:00 Test Item Value Reference Range Interpretation Comments Calcium Lvl (test code = Calcium Lvl) 8.8 8.5-10.5 [place] 124950-11-04 09:42:00 Test Item Value Reference Range Interpretation Comments AGAP (test code = AGAP) 11.2 10.0-20.0 [place] [address]-11-04 09:42:00 Test Item Value Reference Range Interpretation Comments eGFR (test code = eGFR) 7 [place] [address]-11-04 09:42:00 Test Item Value Reference Range Interpretation Comments Neutrophils # (test code = Neutrophils 4.7 1.5-8.1 #) [place] 922080-11-04 09:42:00 Test Item Value Reference Range Interpretation Comments Lymphocytes # (test code = Lymphocytes 1.2 1.0-5.5 #) [place] [address]-11-04 09:42:00 Test Item Value Reference Range Interpretation Comments Monocytes # (test code 0.2 See_Comment [Aut omated message] The = Monocytes #) system which generated this result tra nsmitted reference range : <=0.8. The reference r yared was not used to int erpret this result as normal/abnormal . [facility] CenterHihoprnWKKMIMKKVN6966-01-06 09:42:00 Test Item Value Reference Range Interpretation Comments Eosinophils # (test code 0.2 See_Comment [A utomated message] The = Eosinophils #) system wh h generated this result tra nsmitted reference range : <=0.5. The reference r yared was not used to int erpret this result as normal/abnormal . [facility] CenterSangezzHBSOWZATSN7050-02-62 09:42:00 Test Item Value Reference Range Interpretation Comments Segs (test code = Segs) 71.0 45.0-75.0 [place] 922080-11-04 09:42:00 Test Item Value Reference Range Interpretation Comments Bands (test code = 2.0 See_Comment [Automat ed message] The Bands) system which ge nerated this result transmit emerson reference range : <=11.0. The reference r yared was not used to interpr et this result as erinn l/abnormal. [facility] CenterFiryzkpXHUGCBXIDU9598-72-79 09:42:00 Test Item Value Reference Range Interpretation Comments Lymphocytes # (test code = Lymphocytes 1.2 1.0-5.5 #) [facility] CenterGduenzyMHPSHPTGLC1907-92-42 09:42:00 Test Item Value Reference Range Interpretation Comments Lymphocytes (test code = Lymphocytes) 18.0 20.0-40.0 [place] 922080-11-04 09:42:00 Test Item Value Reference Range Interpretation Comments Monocytes (test code = Monocytes) 3.0 2.0-12.0 [place] [address]-11-04 09:42:00 Test Item Value Reference Range Interpretation Comments Eosinophils (test code = 3.0 See_Comment [A utomated message] The Eosinophils) system which ge nerated this result tra nsmitted reference range : <=4.0. The reference r yared was not used to int erpret this result as normal/abnormal . [place] [address]-11-04 09:42:00 Test Item Value Reference Range Interpretation Comments Metamyelocytes (test code 2.0 See_Comment [ Automated message] = Metamyelocytes) The system which generated this result transmitted ref erence range: <=1.0. T he reference range was not used to int erpret this result as normal/abnormal . [facility] CenterSrpgdmiQSZCMDXTHX4051-17-50 09:42:00 Test Item Value Reference Range Interpretation Comments Myelocytes (test code = Myelocytes) 1.0 [facility] CenterGiqkluoDIVOZLAUNF0047-08-90 09:42:00 Test Item Value Reference Range Interpretation Comments Atypical Lymphs (test code = Atypical 0.0 Lymphs) [facility] CenterDnhepmeJSNJKKXXLJ6655-44-61 09:42:00 Test Item Value Reference Range Interpretation Comments NRBC (test code = NRBC) 1 [facility] CenterLeciiutWBDDIUYOQH1986-47-48 09:42:00 Test Item Value Reference Range Interpretation Comments RBC Morph (test code = Normal (08/12/20 3:42 RBC Morph) AM) [facility] CenterHuzjedjUFVQLSLWPS0406-03-22 09:42:00 Test Item Value Reference Range Interpretation Comments Plt Morph (test code = Normal (08/12/20 3:42 Plt Morph) AM) [facility] CenterZzpqldyYJINBVYMIP6237-34-52 09:42:00 Test Item Value Reference Range Interpretation Comments Tot Cell Ct (test code = Tot Cell Ct) 100 1 [facility] CenterOtkcvjlCXQYAUGNAD6913-93-85 09:42:00 Test Item Value Reference Range Interpretation Comments Monocytes # (test code 0.2 See_Comment [Aut omated message] The = Monocytes #) system which generated this result tra nsmitted reference range : <=0.8. The reference r yared was not used to int erpret this result as normal/abnormal . [facility] CenterUdxbdixLOCXUIZSRF1226-92-15 09:42:00 Test Item Value Reference Range Interpretation Comments Polychrom (test code = Moderate *ABN*(08/12/20 Polychrom) 3:42 AM) [facility] CenterQvwqgzkPORQMALDGR5275-83-86 09:42:00 Test Item Value Reference Range Interpretation Comments WBC (test code = WBC) 6.4 3.7-10.4 [facility] CenterBhntyouHAZTBNVKMX7028-36-82 09:42:00 Test Item Value Reference Range Interpretation Comments RBC (test code = RBC) 3.02 4.70-6.10 [facility] CenterVeuuwmbXSXEFOLYRL6244-98-41 09:42:00 Test Item Value Reference Range Interpretation Comments Hgb (test code = Hgb) 9.0 14.0-18.0 [facility] CenterYgqpwfvUIBGCLVZVX2773-44-46 09:42:00 Test Item Value Reference Range Interpretation Comments Hct (test code = Hct) 25.9 42.0-54.0 [facility] CenterGcwjvrkPIGWEFAHOB5392-39-04 09:42:00 Test Item Value Reference Range Interpretation Comments MCV (test code = MCV) 85.7 80.0-94.0 [facility] CenterShrgqakCZLRCMEEAE6980-35-17 09:42:00 Test Item Value Reference Range Interpretation Comments MCH (test code = MCH) 30.0 pg 27.0-31.0 [facility] CenterBgtnhbsVYHLYSHGPD9435-76-29 09:42:00 Test Item Value Reference Range Interpretation Comments MCHC (test code = MCHC) 34.9 32.0-36.0 [facility] CenterCaaxrkwGAHWPTKQCC1629-02-46 09:42:00 Test Item Value Reference Range Interpretation Comments RDW (test code = RDW) 14.8 11.5-14.5 [facility] CenterVcwwxrlHHZXGSJTCZ0204-79-47 09:42:00 Test Item Value Reference Range Interpretation Comments Platelet (test code = Platelet) 169 133-450 [facility] CenterPfuganxHTEBSZOXRO6007-65-25 09:42:00 Test Item Value Reference Range Interpretation Comments Eosinophils # (test code 0.2 See_Comment [A utomated message] The = Eosinophils #) system whic h generated this result tra nsmitted reference range : <=0.5. The reference r yared was not used to int erpret this result as normal/abnormal . [facility] CenterYbdtwljWZNEGVPJHF3057-26-22 09:42:00 Test Item Value Reference Range Interpretation Comments MPV (test code = MPV) 7.0 7.4-10.4 [place] [address]-11-04 09:42:00 Test Item Value Reference Range Interpretation Comments Segs (test code = Segs) 71.0 45.0-75.0 [facility] CenterVrxatjnOAFLQTQPCM6542-89-33 09:42:00 Test Item Value Reference Range Interpretation Comments Bands (test code = 2.0 See_Comment [Automat ed message] The Bands) system which ge nerated this result transmit emerson reference range : <=11.0. The reference r yared was not used to interpr et this result as erinn l/abnormal. [facility] CenterDoifqxmUKJBLVKEGY7804-35-14 09:42:00 Test Item Value Reference Range Interpretation Comments Lymphocytes (test code = Lymphocytes) 18.0 20.0-40.0 [facility] CenterNienhycINCIJWSALH4521-64-54 09:42:00 Test Item Value Reference Range Interpretation Comments Monocytes (test code = Monocytes) 3.0 2.0-12.0 [facility] CenterUsshtqcMQQRJMCXFW4400-15-16 09:42:00 Test Item Value Reference Range Interpretation Comments Eosinophils (test code = 3.0 See_Comment [A utomated message] The Eosinophils) system which ge nerated this result tra nsmitted reference range : <=4.0. The reference r yared was not used to int erpret this result as normal/abnormal . [facility] CenterSyvghzsIOEGLFRRVI4742-95-68 09:42:00 Test Item Value Reference Range Interpretation Comments Metamyelocytes (test code 2.0 See_Comment [ Automated message] = Metamyelocytes) The system which generated this result transmitted ref erence range: <=1.0. T he reference range was not used to int erpret this result as normal/abnormal . [facility] CenterGbwedveMZJMGZRIBB5264-38-00 09:42:00 Test Item Value Reference Range Interpretation Comments Myelocytes (test code = Myelocytes) 1.0 [facility] CenterZatsjduSMXDIKTGDJ7219-63-94 09:42:00 Test Item Value Reference Range Interpretation Comments Atypical Lymphs (test code = Atypical 0.0 Lymphs) [facility] CenterHipiwmvSMTRPIXXEF2126-60-16 09:42:00 Test Item Value Reference Range Interpretation Comments NRBC (test code = NRBC) 1 [facility] CenterBtywnysYUWXHYFARN0551-65-26 09:42:00 Test Item Value Reference Range Interpretation Comments RBC Morph (test code = Normal (08/12/20 3:42 RBC Morph) AM) [facility] CenterQaqossmZXICOULXYM7585-05-64 09:42:00 Test Item Value Reference Range Interpretation Comments Plt Morph (test code = Normal (08/12/20 3:42 Plt Morph) AM) [facility] CenterIcreyuzSKGGAYQOLH1007-10-63 09:42:00 Test Item Value Reference Range Interpretation Comments Tot Cell Ct (test code = Tot Cell Ct) 100 1 [facility] CenterZgebavbGDAVTSSZSE7344-23-24 09:42:00 Test Item Value Reference Range Interpretation Comments Polychrom (test code = Moderate *ABN*(08/12/20 Polychrom) 3:42 AM) [facility] CenterBpdlfpgDFEJNCCONM8916-40-45 09:42:00 Test Item Value Reference Range Interpretation Comments WBC (test code = WBC) 6.4 3.7-10.4 [facility] CenterGrpgyldWYQESCTSZG9242-76-42 09:42:00 Test Item Value Reference Range Interpretation Comments RBC (test code = RBC) 3.02 4.70-6.10 [facility] CenterClniyyfYSCHRBPMZD7394-29-23 09:42:00 Test Item Value Reference Range Interpretation Comments Hgb (test code = Hgb) 9.0 14.0-18.0 [facility] CenterIlqqohmRXLPQVNGSZ9121-15-36 09:42:00 Test Item Value Reference Range Interpretation Comments Hct (test code = Hct) 25.9 42.0-54.0 [facility] CenterEuivqgpFKLJSKODLU4766-34-84 09:42:00 Test Item Value Reference Range Interpretation Comments MCV (test code = MCV) 85.7 80.0-94.0 [facility] CenterBzqjqjwFQEQQPZYRX2224-64-51 09:42:00 Test Item Value Reference Range Interpretation Comments MCH (test code = MCH) 30.0 pg 27.0-31.0 [facility] CenterHzqwvpgFQNIFQJLQW2765-49-57 09:42:00 Test Item Value Reference Range Interpretation Comments MCHC (test code = MCHC) 34.9 32.0-36.0 [facility] CenterIcbblwgHZWKRXLKYO2676-81-18 09:42:00 Test Item Value Reference Range Interpretation Comments RDW (test code = RDW) 14.8 11.5-14.5 [facility] CenterRlfqbaxZESGXYWTGK8696-00-65 09:42:00 Test Item Value Reference Range Interpretation Comments Platelet (test code = Platelet) 169 133-450 [facility] CenterKyvrjrlUQNOGAOHBJ8694-52-52 09:42:00 Test Item Value Reference Range Interpretation Comments MPV (test code = MPV) 7.0 7.4-10.4 [facility]2020-11-04 09:42:00 Test Item Value Reference Range Interpretation Comments Glucose Lvl (test code = Glucose Lvl) 79 70-99 [facility]2020-11-04 09:42:00 Test Item Value Reference Range Interpretation Comments BUN (test code = BUN) 21 7-22 [place] 124950-11-04 09:42:00 Test Item Value Reference Range Interpretation Comments Creatinine Lvl (test code = Creatinine 7.93 0.50-1.40 Lvl) [place] 124950-11-04 09:42:00 Test Item Value Reference Range Interpretation Comments Sodium Lvl (test code = Sodium Lvl) 139 135-145 [place] 124950-11-04 09:42:00 Test Item Value Reference Range Interpretation Comments Potassium Lvl (test code = Potassium 3.2 3.5-5.1 Lvl) [place] 124950-11-04 09:42:00 Test Item Value Reference Range Interpretation Comments Chloride Lvl (test code = Chloride Lvl) 104 95-109 [place] 124950-11-04 09:42:00 Test Item Value Reference Range Interpretation Comments CO2 (test code = CO2) 27 24-32 [place] [address]-11-04 09:42:00 Test Item Value Reference Range Interpretation Comments Calcium Lvl (test code = Calcium Lvl) 8.8 8.5-10.5 [place] 124950-11-04 09:42:00 Test Item Value Reference Range Interpretation Comments AGAP (test code = AGAP) 11.2 10.0-20.0 [place] 124950-11-04 09:42:00 Test Item Value Reference Range Interpretation Comments eGFR (test code = eGFR) 7 [place] 922080-11-04 09:42:00 Test Item Value Reference Range Interpretation Comments Neutrophils # (test code = Neutrophils 4.7 1.5-8.1 #) [place] [address]-11-04 09:42:00 Test Item Value Reference Range Interpretation Comments Lymphocytes # (test code = Lymphocytes 1.2 1.0-5.5 #) [place] [address]-11-04 09:42:00 Test Item Value Reference Range Interpretation Comments Monocytes # (test code 0.2 See_Comment [Aut omated message] The = Monocytes #) system which generated this result tra nsmitted reference range : <=0.8. The reference r yared was not used to int erpret this result as normal/abnormal . [place] 922080-11-04 09:42:00 Test Item Value Reference Range Interpretation Comments Eosinophils # (test code 0.2 See_Comment [A utomated message] The = Eosinophils #) system whic h generated this result tra nsmitted reference range : <=0.5. The reference r yared was not used to int erpret this result as normal/abnormal . [facility] CenterGkouqqgUZMLBXGKDM1870-63-85 09:42:00 Test Item Value Reference Range Interpretation Comments Segs (test code = Segs) 71.0 45.0-75.0 [facility] CenterCnjxpqvKRWYFUPHQG8862-59-92 09:42:00 Test Item Value Reference Range Interpretation Comments Bands (test code = 2.0 See_Comment [Automat ed message] The Bands) system which ge nerated this result transmit emerson reference range : <=11.0. The reference r yared was not used to interpr et this result as erinn l/abnormal. [facility] CenterBbwfvurWWMUYXJEZW6721-69-35 09:42:00 Test Item Value Reference Range Interpretation Comments Lymphocytes (test code = Lymphocytes) 18.0 20.0-40.0 [facility] CenterVwtcfzeOYMAGWJZFR5199-27-58 09:42:00 Test Item Value Reference Range Interpretation Comments Monocytes (test code = Monocytes) 3.0 2.0-12.0 [facility] CenterVujddezCFSZOIRTZN7725-40-39 09:42:00 Test Item Value Reference Range Interpretation Comments Eosinophils (test code = 3.0 See_Comment [A utomated message] The Eosinophils) system which ge nerated this result tra nsmitted reference range : <=4.0. The reference r yared was not used to int erpret this result as normal/abnormal . [facility] CenterGvbnvtrWRLAMZIRKO7624-25-42 09:42:00 Test Item Value Reference Range Interpretation Comments Metamyelocytes (test code 2.0 See_Comment [ Automated message] = Metamyelocytes) The system which generated this result transmitted ref erence range: <=1.0. T he reference range was not used to int erpret this result as normal/abnormal . [facility] CenterMwdguhdUSTYBTBNVU4662-01-81 09:42:00 Test Item Value Reference Range Interpretation Comments Myelocytes (test code = Myelocytes) 1.0 [place] 922080-11-04 09:42:00 Test Item Value Reference Range Interpretation Comments Atypical Lymphs (test code = Atypical 0.0 Lymphs) [facility] CenterUlresgmTHUTZOBATC6630-21-68 09:42:00 Test Item Value Reference Range Interpretation Comments NRBC (test code = NRBC) 1 [facility] CenterQyxrzcdLRYGVNFTCG0372-70-58 09:42:00 Test Item Value Reference Range Interpretation Comments RBC Morph (test code = Normal (08/12/20 3:42 RBC Morph) AM) [facility] CenterEefrxivAATDSXEPXV4893-97-88 09:42:00 Test Item Value Reference Range Interpretation Comments Plt Morph (test code = Normal (08/12/20 3:42 Plt Morph) AM) [facility] CenterZxfosjiHDAAMKPMYN0759-62-90 09:42:00 Test Item Value Reference Range Interpretation Comments Tot Cell Ct (test code = Tot Cell Ct) 100 1 [facility] CenterPzzwwlzSQVDYMRNHG4725-86-93 09:42:00 Test Item Value Reference Range Interpretation Comments Polychrom (test code = Moderate *ABN*(08/12/20 Polychrom) 3:42 AM) [facility] CenterRqjlgsmDBOHFGBSPT3643-73-42 09:42:00 Test Item Value Reference Range Interpretation Comments WBC (test code = WBC) 6.4 3.7-10.4 [facility] CenterGqrjcnmVDUAIFFGVK4215-38-03 09:42:00 Test Item Value Reference Range Interpretation Comments RBC (test code = RBC) 3.02 4.70-6.10 [facility] CenterTvsiajwKCEPRRIFXI0599-71-77 09:42:00 Test Item Value Reference Range Interpretation Comments Hgb (test code = Hgb) 9.0 14.0-18.0 [facility] CenterMnkvlqdLQQUHSHITE5962-15-84 09:42:00 Test Item Value Reference Range Interpretation Comments Hct (test code = Hct) 25.9 42.0-54.0 [facility] CenterDluycdhBEKABYMOIN1273-22-54 09:42:00 Test Item Value Reference Range Interpretation Comments MCV (test code = MCV) 85.7 80.0-94.0 [facility] CenterHmvicvoWRYWAPIKUR2714-80-80 09:42:00 Test Item Value Reference Range Interpretation Comments MCH (test code = MCH) 30.0 pg 27.0-31.0 [facility] CenterRrntengNYAQBJYYCV6307-46-82 09:42:00 Test Item Value Reference Range Interpretation Comments MCHC (test code = MCHC) 34.9 32.0-36.0 [place] [address]-11-04 09:42:00 Test Item Value Reference Range Interpretation Comments RDW (test code = RDW) 14.8 11.5-14.5 [place] [address]-11-04 09:42:00 Test Item Value Reference Range Interpretation Comments Platelet (test code = Platelet) 169 133-450 [place] [address]-11-04 09:42:00 Test Item Value Reference Range Interpretation Comments MPV (test code = MPV) 7.0 7.4-10.4 [place] 124950-11-03 09:35:00 Test Item Value Reference Range Interpretation Comments Glucose Lvl (test code = Glucose Lvl) 80 70-99 [place] [address]-11-03 09:35:00 Test Item Value Reference Range Interpretation Comments BUN (test code = BUN) 13 7-22 [place] [address]-11-03 09:35:00 Test Item Value Reference Range Interpretation Comments Creatinine Lvl (test code = Creatinine 5.51 0.50-1.40 Lvl) [place] 124950-11-03 09:35:00 Test Item Value Reference Range Interpretation Comments Sodium Lvl (test code = Sodium Lvl) 140 135-145 [place] [address]-11-03 09:35:00 Test Item Value Reference Range Interpretation Comments Potassium Lvl (test code = Potassium 3.2 3.5-5.1 Lvl) [place] 124950-11-03 09:35:00 Test Item Value Reference Range Interpretation Comments Chloride Lvl (test code = Chloride Lvl) 105 95-109 [place] [address]-11-03 09:35:00 Test Item Value Reference Range Interpretation Comments CO2 (test code = CO2) 28 24-32 [place] [address]-11-03 09:35:00 Test Item Value Reference Range Interpretation Comments Calcium Lvl (test code = Calcium Lvl) 8.4 8.5-10.5 [place] 124950-11-03 09:35:00 Test Item Value Reference Range Interpretation Comments AGAP (test code = AGAP) 10.2 10.0-20.0 [place] [address]-11-03 09:35:00 Test Item Value Reference Range Interpretation Comments eGFR (test code = eGFR) 10 [place] 922080-11-03 09:35:00 Test Item Value Reference Range Interpretation Comments Segs (test code = Segs) 68.4 45.0-75.0 [place] 922080-11-03 09:35:00 Test Item Value Reference Range Interpretation Comments Lymphocytes (test code = Lymphocytes) 17.8 20.0-40.0 [place] [address]-11-03 09:35:00 Test Item Value Reference Range Interpretation Comments Monocytes (test code = Monocytes) 9.3 2.0-12.0 [place] [address]-11-03 09:35:00 Test Item Value Reference Range Interpretation Comments Eosinophils (test code = 3.7 See_Comment [A utomated message] The Eosinophils) system which ge nerated this result tra nsmitted reference range : <=4.0. The reference r yared was not used to int erpret this result as normal/abnormal . [place] [address]-11-03 09:35:00 Test Item Value Reference Range Interpretation Comments Basophils (test code = 0.8 See_Comment [Aut omated message] The Basophils) system which ge nerated this result tra nsmitted reference range : <=1.0. The reference r yared was not used to int erpret this result as normal/abnormal . [place] [address]-11-03 09:35:00 Test Item Value Reference Range Interpretation Comments Neutrophils # (test code = Neutrophils 4.1 1.5-8.1 #) [place] [address]-11-03 09:35:00 Test Item Value Reference Range Interpretation Comments Lymphocytes # (test code = Lymphocytes 1.1 1.0-5.5 #) [place] [address]-11-03 09:35:00 Test Item Value Reference Range Interpretation Comments Monocytes # (test code 0.6 See_Comment [Aut omated message] The = Monocytes #) system which generated this result tra nsmitted reference range : <=0.8. The reference r yared was not used to int erpret this result as normal/abnormal . [place] [address]-11-03 09:35:00 Test Item Value Reference Range Interpretation Comments Eosinophils # (test code 0.2 See_Comment [A utomated message] The = Eosinophils #) system whic h generated this result tra nsmitted reference range : <=0.5. The reference r yared was not used to int erpret this result as normal/abnormal . [facility]cgzkwqBMLFMCFDZA8658-70-49 09:35:00 Test Item Value Reference Range Interpretation Comments WBC (test code = WBC) 6.0 3.7-10.4 [facility] CenterBbkujzyOAQYDMRIOD7472-94-53 09:35:00 Test Item Value Reference Range Interpretation Comments RBC (test code = RBC) 2.84 4.70-6.10 [facility] CenterHmvswojQQPHOUWSBK1334-37-08 09:35:00 Test Item Value Reference Range Interpretation Comments Hgb (test code = Hgb) 8.1 14.0-18.0 [place] [address]-11-03 09:35:00 Test Item Value Reference Range Interpretation Comments Hct (test code = Hct) 24.2 42.0-54.0 [place] [address]-11-03 09:35:00 Test Item Value Reference Range Interpretation Comments MCV (test code = MCV) 85.3 80.0-94.0 [place] [address]-11-03 09:35:00 Test Item Value Reference Range Interpretation Comments MCH (test code = MCH) 28.7 pg 27.0-31.0 [place] [address]-11-03 09:35:00 Test Item Value Reference Range Interpretation Comments MCHC (test code = MCHC) 33.6 32.0-36.0 [place] 922080-11-03 09:35:00 Test Item Value Reference Range Interpretation Comments RDW (test code = RDW) 14.5 11.5-14.5 [place] 922080-11-03 09:35:00 Test Item Value Reference Range Interpretation Comments Platelet (test code = Platelet) 171 133-450 [facility] CenterOvjyyjiFEHDPVNXLO7015-00-85 09:35:00 Test Item Value Reference Range Interpretation Comments MPV (test code = MPV) 7.4 7.4-10.4 [facility]2020-11-03 09:35:00 Test Item Value Reference Range Interpretation Comments Glucose Lvl (test code = Glucose Lvl) 80 70-99 [facility]2020-11-03 09:35:00 Test Item Value Reference Range Interpretation Comments BUN (test code = BUN) 13 7-22 [place] 124950-11-03 09:35:00 Test Item Value Reference Range Interpretation Comments Creatinine Lvl (test code = Creatinine 5.51 0.50-1.40 Lvl) [place] 124950-11-03 09:35:00 Test Item Value Reference Range Interpretation Comments Sodium Lvl (test code = Sodium Lvl) 140 135-145 [place] [address]-11-03 09:35:00 Test Item Value Reference Range Interpretation Comments Potassium Lvl (test code = Potassium 3.2 3.5-5.1 Lvl) [place] [address]-11-03 09:35:00 Test Item Value Reference Range Interpretation Comments Chloride Lvl (test code = Chloride Lvl) 105 95-109 [place] 124950-11-03 09:35:00 Test Item Value Reference Range Interpretation Comments CO2 (test code = CO2) 28 24-32 [place] [address]-11-03 09:35:00 Test Item Value Reference Range Interpretation Comments Calcium Lvl (test code = Calcium Lvl) 8.4 8.5-10.5 [place] 124950-11-03 09:35:00 Test Item Value Reference Range Interpretation Comments AGAP (test code = AGAP) 10.2 10.0-20.0 [place] [address]-11-03 09:35:00 Test Item Value Reference Range Interpretation Comments eGFR (test code = eGFR) 10 [place] [address]-11-03 09:35:00 Test Item Value Reference Range Interpretation Comments Segs (test code = Segs) 68.4 45.0-75.0 [place] [address]-11-03 09:35:00 Test Item Value Reference Range Interpretation Comments Lymphocytes (test code = Lymphocytes) 17.8 20.0-40.0 [place] [address]-11-03 09:35:00 Test Item Value Reference Range Interpretation Comments Monocytes (test code = Monocytes) 9.3 2.0-12.0 [place] [address]-11-03 09:35:00 Test Item Value Reference Range Interpretation Comments Eosinophils (test code = 3.7 See_Comment [A utomated message] The Eosinophils) system which ge nerated this result tra nsmitted reference range : <=4.0. The reference r yared was not used to int erpret this result as normal/abnormal . [facility] CenterHxafioyQOQJNVQYBY2681-21-76 09:35:00 Test Item Value Reference Range Interpretation Comments Basophils (test code = 0.8 See_Comment [Aut omated message] The Basophils) system which ge nerated this result tra nsmitted reference range : <=1.0. The reference r yared was not used to int erpret this result as normal/abnormal . [facility] CenterZlumyogVAPTTDLEVM4336-04-42 09:35:00 Test Item Value Reference Range Interpretation Comments Neutrophils # (test code = Neutrophils 4.1 1.5-8.1 #) [facility] CenterGuzsqxoFICRETCWZM0592-84-61 09:35:00 Test Item Value Reference Range Interpretation Comments Lymphocytes # (test code = Lymphocytes 1.1 1.0-5.5 #) [facility] CenterAwwthflZQEOVFXWSL5109-26-64 09:35:00 Test Item Value Reference Range Interpretation Comments Monocytes # (test code 0.6 See_Comment [Aut omated message] The = Monocytes #) system which generated this result tra nsmitted reference range : <=0.8. The reference r ayred was not used to int erpret this result as normal/abnormal . [facility] CenterCjhgsvcANXAAHRVJP0504-87-66 09:35:00 Test Item Value Reference Range Interpretation Comments Eosinophils # (test code 0.2 See_Comment [A utomated message] The = Eosinophils #) system whic h generated this result tra nsmitted reference range : <=0.5. The reference r yared was not used to int erpret this result as normal/abnormal . [facility] CenterCcvcmsoRIMELCDCYM2536-88-50 09:35:00 Test Item Value Reference Range Interpretation Comments WBC (test code = WBC) 6.0 3.7-10.4 [place] [address]-11-03 09:35:00 Test Item Value Reference Range Interpretation Comments RBC (test code = RBC) 2.84 4.70-6.10 [place] [address]-11-03 09:35:00 Test Item Value Reference Range Interpretation Comments Hgb (test code = Hgb) 8.1 14.0-18.0 [place] [address]-11-03 09:35:00 Test Item Value Reference Range Interpretation Comments Hct (test code = Hct) 24.2 42.0-54.0 [place] [address]-11-03 09:35:00 Test Item Value Reference Range Interpretation Comments MCV (test code = MCV) 85.3 80.0-94.0 [place] [address]-11-03 09:35:00 Test Item Value Reference Range Interpretation Comments MCH (test code = MCH) 28.7 pg 27.0-31.0 [place] [address]-11-03 09:35:00 Test Item Value Reference Range Interpretation Comments MCHC (test code = MCHC) 33.6 32.0-36.0 [place] [address]-11-03 09:35:00 Test Item Value Reference Range Interpretation Comments RDW (test code = RDW) 14.5 11.5-14.5 [place] [address]-11-03 09:35:00 Test Item Value Reference Range Interpretation Comments Platelet (test code = Platelet) 171 133-450 [place] [address]-11-03 09:35:00 Test Item Value Reference Range Interpretation Comments MPV (test code = MPV) 7.4 7.4-10.4 [place] 124950-11-03 09:35:00 Test Item Value Reference Range Interpretation Comments Glucose Lvl (test code = Glucose Lvl) 80 70-99 [place] 124950-11-03 09:35:00 Test Item Value Reference Range Interpretation Comments BUN (test code = BUN) 13 7-22 [place] [address]-11-03 09:35:00 Test Item Value Reference Range Interpretation Comments Creatinine Lvl (test code = Creatinine 5.51 0.50-1.40 Lvl) [place] 124950-11-03 09:35:00 Test Item Value Reference Range Interpretation Comments Sodium Lvl (test code = Sodium Lvl) 140 135-145 [place] 124950-11-03 09:35:00 Test Item Value Reference Range Interpretation Comments Potassium Lvl (test code = Potassium 3.2 3.5-5.1 Lvl) [place] [address]-11-03 09:35:00 Test Item Value Reference Range Interpretation Comments Chloride Lvl (test code = Chloride Lvl) 105 95-109 [place] [address]-11-03 09:35:00 Test Item Value Reference Range Interpretation Comments CO2 (test code = CO2) 28 24-32 [address]11-03 09:35:00 Test Item Value Reference Range Interpretation Comments Calcium Lvl (test code = Calcium Lvl) 8.4 8.5-10.5 [place] [address]-11-03 09:35:00 Test Item Value Reference Range Interpretation Comments AGAP (test code = AGAP) 10.2 10.0-20.0 [address]11-03 09:35:00 Test Item Value Reference Range Interpretation Comments eGFR (test code = eGFR) 10 [place] [address]-11-03 09:35:00 Test Item Value Reference Range Interpretation Comments Segs (test code = Segs) 68.4 45.0-75.0 [place] [address]-11-03 09:35:00 Test Item Value Reference Range Interpretation Comments Lymphocytes (test code = Lymphocytes) 17.8 20.0-40.0 [place] [address]-11-03 09:35:00 Test Item Value Reference Range Interpretation Comments Monocytes (test code = Monocytes) 9.3 2.0-12.0 [place] [address]-11-03 09:35:00 Test Item Value Reference Range Interpretation Comments Eosinophils (test code = 3.7 See_Comment [A utomated message] The Eosinophils) system which ge nerated this result tra nsmitted reference range : <=4.0. The reference r yared was not used to int erpret this result as normal/abnormal . [place] [address]-11-03 09:35:00 Test Item Value Reference Range Interpretation Comments Basophils (test code = 0.8 See_Comment [Aut omated message] The Basophils) system which ge nerated this result tra nsmitted reference range : <=1.0. The reference r yared was not used to int erpret this result as normal/abnormal . [place] [address]-11-03 09:35:00 Test Item Value Reference Range Interpretation Comments Neutrophils # (test code = Neutrophils 4.1 1.5-8.1 #) [place] [address]-11-03 09:35:00 Test Item Value Reference Range Interpretation Comments Lymphocytes # (test code = Lymphocytes 1.1 1.0-5.5 #) [facility] CenterXezctvfYKFXFXMIBP4978-25-65 09:35:00 Test Item Value Reference Range Interpretation Comments Monocytes # (test code 0.6 See_Comment [Aut omated message] The = Monocytes #) system which generated this result tra nsmitted reference range : <=0.8. The reference r yared was not used to int erpret this result as normal/abnormal . [facility] CenterHdzkcmoOFOJFCRTMG2220-47-66 09:35:00 Test Item Value Reference Range Interpretation Comments Eosinophils # (test code 0.2 See_Comment [A utomated message] The = Eosinophils #) system whic h generated this result tra nsmitted reference range : <=0.5. The reference r yared was not used to int erpret this result as normal/abnormal . [facility] CenterXwotnwdIPSNSIVMXP0242-88-28 09:35:00 Test Item Value Reference Range Interpretation Comments WBC (test code = WBC) 6.0 3.7-10.4 [facility] CenterPlodmrxBZHUKBBRET7335-27-47 09:35:00 Test Item Value Reference Range Interpretation Comments RBC (test code = RBC) 2.84 4.70-6.10 [place] 922080-11-03 09:35:00 Test Item Value Reference Range Interpretation Comments Hgb (test code = Hgb) 8.1 14.0-18.0 [place] 922080-11-03 09:35:00 Test Item Value Reference Range Interpretation Comments Hct (test code = Hct) 24.2 42.0-54.0 [place] 922080-11-03 09:35:00 Test Item Value Reference Range Interpretation Comments MCV (test code = MCV) 85.3 80.0-94.0 [place] [address]-11-03 09:35:00 Test Item Value Reference Range Interpretation Comments MCH (test code = MCH) 28.7 pg 27.0-31.0 [facility] CenterUqqavmtSOBQGJRDUY0085-95-29 09:35:00 Test Item Value Reference Range Interpretation Comments MCHC (test code = MCHC) 33.6 32.0-36.0 [place] [address]-11-03 09:35:00 Test Item Value Reference Range Interpretation Comments RDW (test code = RDW) 14.5 11.5-14.5 [place] [address]-11-03 09:35:00 Test Item Value Reference Range Interpretation Comments Platelet (test code = Platelet) 171 133-450 [place] 922080-11-03 09:35:00 Test Item Value Reference Range Interpretation Comments MPV (test code = MPV) 7.4 7.4-10.4 [place] 124950-11-03 09:35:00 Test Item Value Reference Range Interpretation Comments Glucose Lvl (test code = Glucose Lvl) 80 70-99 [place] [address]-11-03 09:35:00 Test Item Value Reference Range Interpretation Comments BUN (test code = BUN) 13 7-22 [place] [address]-11-03 09:35:00 Test Item Value Reference Range Interpretation Comments Creatinine Lvl (test code = Creatinine 5.51 0.50-1.40 Lvl) [place] 124950-11-03 09:35:00 Test Item Value Reference Range Interpretation Comments Sodium Lvl (test code = Sodium Lvl) 140 135-145 [place] 124950-11-03 09:35:00 Test Item Value Reference Range Interpretation Comments Potassium Lvl (test code = Potassium 3.2 3.5-5.1 Lvl) [place] 124950-11-03 09:35:00 Test Item Value Reference Range Interpretation Comments Chloride Lvl (test code = Chloride Lvl) 105 95-109 [place] 124950-11-03 09:35:00 Test Item Value Reference Range Interpretation Comments CO2 (test code = CO2) 28 24-32 [place] 124950-11-03 09:35:00 Test Item Value Reference Range Interpretation Comments Calcium Lvl (test code = Calcium Lvl) 8.4 8.5-10.5 [place] 124950-11-03 09:35:00 Test Item Value Reference Range Interpretation Comments AGAP (test code = AGAP) 10.2 10.0-20.0 [place] 124950-11-03 09:35:00 Test Item Value Reference Range Interpretation Comments eGFR (test code = eGFR) 10 [place] 922080-11-03 09:35:00 Test Item Value Reference Range Interpretation Comments Segs (test code = Segs) 68.4 45.0-75.0 [address]11-03 09:35:00 Test Item Value Reference Range Interpretation Comments Lymphocytes (test code = Lymphocytes) 17.8 20.0-40.0 [address]11-03 09:35:00 Test Item Value Reference Range Interpretation Comments Monocytes (test code = Monocytes) 9.3 2.0-12.0 [place] [address]-11-03 09:35:00 Test Item Value Reference Range Interpretation Comments Eosinophils (test code = 3.7 See_Comment [A utomated message] The Eosinophils) system which ge nerated this result tra nsmitted reference range : <=4.0. The reference r yared was not used to int erpret this result as normal/abnormal . [address]11-03 09:35:00 Test Item Value Reference Range Interpretation Comments Basophils (test code = 0.8 See_Comment [Aut omated message] The Basophils) system which ge nerated this result tra nsmitted reference range : <=1.0. The reference r yared was not used to int erpret this result as normal/abnormal . [place] [address]-11-03 09:35:00 Test Item Value Reference Range Interpretation Comments Neutrophils # (test code = Neutrophils 4.1 1.5-8.1 #) [address]11-03 09:35:00 Test Item Value Reference Range Interpretation Comments Lymphocytes # (test code = Lymphocytes 1.1 1.0-5.5 #) [address]11-03 09:35:00 Test Item Value Reference Range Interpretation Comments Monocytes # (test code 0.6 See_Comment [Aut omated message] The = Monocytes #) system which generated this result tra nsmitted reference range : <=0.8. The reference r yared was not used to int erpret this result as normal/abnormal . [place] [address]-11-03 09:35:00 Test Item Value Reference Range Interpretation Comments Eosinophils # (test code 0.2 See_Comment [A utomated message] The = Eosinophils #) system [facility] h generated this result tra nsmitted reference range : <=0.5. The reference r yared was not used to int erpret this result as normal/abnormal . [facility] CenterLamoficKPNAVSOVRF9439-52-89 09:35:00 Test Item Value Reference Range Interpretation Comments WBC (test code = WBC) 6.0 3.7-10.4 [facility] CenterGysfqrbKPVWZROTNP4418-59-31 09:35:00 Test Item Value Reference Range Interpretation Comments RBC (test code = RBC) 2.84 4.70-6.10 [place] 922080-11-03 09:35:00 Test Item Value Reference Range Interpretation Comments Hgb (test code = Hgb) 8.1 14.0-18.0 [place] [address]-11-03 09:35:00 Test Item Value Reference Range Interpretation Comments Hct (test code = Hct) 24.2 42.0-54.0 [place] [address]-11-03 09:35:00 Test Item Value Reference Range Interpretation Comments MCV (test code = MCV) 85.3 80.0-94.0 [place] [address]-11-03 09:35:00 Test Item Value Reference Range Interpretation Comments MCH (test code = MCH) 28.7 pg 27.0-31.0 [facility] CenterGqnkcbmJLQZDKCGFR0338-15-52 09:35:00 Test Item Value Reference Range Interpretation Comments MCHC (test code = MCHC) 33.6 32.0-36.0 [facility] CenterBvxrqqoXHQYQJMEOP4344-01-02 09:35:00 Test Item Value Reference Range Interpretation Comments RDW (test code = RDW) 14.5 11.5-14.5 [facility] CenterSnmhikrIOPFLPLLUR1493-87-34 09:35:00 Test Item Value Reference Range Interpretation Comments Platelet (test code = Platelet) 171 133-450 [facility] CenterUnnpyftPJMTBQPPDC5196-69-93 09:35:00 Test Item Value Reference Range Interpretation Comments MPV (test code = MPV) 7.4 7.4-10.4 [facility]2020-11-02 09:39:00 Test Item Value Reference Range Interpretation Comments Glucose Lvl (test code = Glucose Lvl) 110 70-99 [facility]2020-11-02 09:39:00 Test Item Value Reference Range Interpretation Comments BUN (test code = BUN) 21 7-22 [facility]2020-11-02 09:39:00 Test Item Value Reference Range Interpretation Comments Creatinine Lvl (test code = Creatinine 6.77 0.50-1.40 Lvl) [place] 124950-11-02 09:39:00 Test Item Value Reference Range Interpretation Comments Sodium Lvl (test code = Sodium Lvl) 139 135-145 [place] 124950-11-02 09:39:00 Test Item Value Reference Range Interpretation Comments Potassium Lvl (test code = Potassium 3.5 3.5-5.1 Lvl) [place] 124950-11-02 09:39:00 Test Item Value Reference Range Interpretation Comments Chloride Lvl (test code = Chloride Lvl) 104 95-109 [place] 124950-11-02 09:39:00 Test Item Value Reference Range Interpretation Comments CO2 (test code = CO2) 29 24-32 [place] 124950-11-02 09:39:00 Test Item Value Reference Range Interpretation Comments AGAP (test code = AGAP) 9.5 10.0-20.0 [place] 124950-11-02 09:39:00 Test Item Value Reference Range Interpretation Comments Calcium Lvl (test code = Calcium Lvl) 7.9 8.5-10.5 [place] 124950-11-02 09:39:00 Test Item Value Reference Range Interpretation Comments eGFR (test code = eGFR) 8 [facility] CenterCebxgnjWNAMRQCXRS7768-30-03 09:39:00 Test Item Value Reference Range Interpretation Comments Neutrophils # (test code = Neutrophils 3.8 1.5-8.1 #) [place] 922080-11-02 09:39:00 Test Item Value Reference Range Interpretation Comments Lymphocytes # (test code = Lymphocytes 1.1 1.0-5.5 #) [place] [address]-11-02 09:39:00 Test Item Value Reference Range Interpretation Comments Monocytes # (test code 0.2 See_Comment [Aut omated message] The = Monocytes #) system which generated this result tra nsmitted reference range : <=0.8. The reference r yared was not used to int erpret this result as normal/abnormal . [place] 922080-11-02 09:39:00 Test Item Value Reference Range Interpretation Comments Eosinophils # (test code 0.4 See_Comment [A utomated message] The = Eosinophils #) system whic h generated this result tra nsmitted reference range : <=0.5. The reference r yared was not used to int erpret this result as normal/abnormal . [facility] CenterAtesitaSCVXRMXSMN2939-34-89 09:39:00 Test Item Value Reference Range Interpretation Comments Segs (test code = Segs) 64.0 45.0-75.0 [facility] CenterPfkmlzyXYEDWRIZQK2382-30-27 09:39:00 Test Item Value Reference Range Interpretation Comments Bands (test code = 2.0 See_Comment [Automat ed message] The Bands) system which ge nerated this result transmit emerson reference range : <=11.0. The reference r yared was not used to interpr et this result as erinn l/abnormal. [facility] CenterOnydlgvVTAOXMRXAS8413-35-41 09:39:00 Test Item Value Reference Range Interpretation Comments Lymphocytes (test code = Lymphocytes) 20.0 20.0-40.0 [facility] CenterRowwtbfDFWVBBNNIM4146-11-10 09:39:00 Test Item Value Reference Range Interpretation Comments Monocytes (test code = Monocytes) 4.0 2.0-12.0 [facility] CenterYawgkapZIXCTTPKCE2613-84-51 09:39:00 Test Item Value Reference Range Interpretation Comments Eosinophils (test code = 7.0 See_Comment [A utomated message] The Eosinophils) system which ge nerated this result tra nsmitted reference range : <=4.0. The reference r yared was not used to int erpret this result as normal/abnormal . [facility] CenterVuxmstwPOPTVQTGDR3144-89-10 09:39:00 Test Item Value Reference Range Interpretation Comments Myelocytes (test code = Myelocytes) 3.0 [facility] CenterRinquliQZAIGTJOUL3785-94-59 09:39:00 Test Item Value Reference Range Interpretation Comments Atypical Lymphs (test code = Atypical 0.0 Lymphs) [facility] CenterDnxxzlaJPGHPSGOSS4464-66-72 09:39:00 Test Item Value Reference Range Interpretation Comments NRBC (test code = NRBC) 1 [facility] CenterYgbhvbxVHGISTFRDH8675-34-25 09:39:00 Test Item Value Reference Range Interpretation Comments RBC Morph (test code = Normal (08/10/20 3:39 RBC Morph) AM) [facility] CenterCplswwbLHZRDLHWFQ4561-54-53 09:39:00 Test Item Value Reference Range Interpretation Comments Plt Morph (test code = Normal (08/10/20 3:39 Plt Morph) AM) [facility] CenterFwlwprjYQLTOHODMA8238-85-52 09:39:00 Test Item Value Reference Range Interpretation Comments WBC (test code = WBC) 5.7 3.7-10.4 [facility] CenterDctpeeuEARAWGTVCT3198-30-95 09:39:00 Test Item Value Reference Range Interpretation Comments RBC (test code = RBC) 2.61 4.70-6.10 [facility] CenterDqaqauyACBCXWJXZN4020-79-72 09:39:00 Test Item Value Reference Range Interpretation Comments Hgb (test code = Hgb) 7.5 14.0-18.0 [place] 922080-11-02 09:39:00 Test Item Value Reference Range Interpretation Comments Hct (test code = Hct) 22.3 42.0-54.0 [facility] [facility]ALN2827[facility] 09:39[facility]00 Test Item Value Reference Range Interpretation Comments MCV (test code = MCV) 85.6 80.0-94.0 [place] 922080-11-02 09:39:00 Test Item Value Reference Range Interpretation Comments MCH (test code = MCH) 28.8 pg 27.0-31.0 [facility] CenterGmvbenmJOUFBSMBEL0231-50-11 09:39:00 Test Item Value Reference Range Interpretation Comments MCHC (test code = MCHC) 33.6 32.0-36.0 [facility] CenterBcrgkhgCAHSVUCOZS1515-80-11 09:39:00 Test Item Value Reference Range Interpretation Comments RDW (test code = RDW) 13.9 11.5-14.5 [facility] CenterXanasofNJKOYSERPG1457-48-80 09:39:00 Test Item Value Reference Range Interpretation Comments Platelet (test code = Platelet) 164 133-450 [facility] CenterOsxhnmxRQVAITABFE4367-51-87 09:39:00 Test Item Value Reference Range Interpretation Comments MPV (test code = MPV) 7.5 7.4-10.4 [facility]2020-11-02 09:39:00 Test Item Value Reference Range Interpretation Comments Glucose Lvl (test code = Glucose Lvl) 110 70-99 [facility]2020-11-02 09:39:00 Test Item Value Reference Range Interpretation Comments BUN (test code = BUN) 21 7-22 [place] 124950-11-02 09:39:00 Test Item Value Reference Range Interpretation Comments Creatinine Lvl (test code = Creatinine 6.77 0.50-1.40 Lvl) [place] 124950-11-02 09:39:00 Test Item Value Reference Range Interpretation Comments Sodium Lvl (test code = Sodium Lvl) 139 135-145 [place] 124950-11-02 09:39:00 Test Item Value Reference Range Interpretation Comments Potassium Lvl (test code = Potassium 3.5 3.5-5.1 Lvl) [place] [address]-11-02 09:39:00 Test Item Value Reference Range Interpretation Comments Chloride Lvl (test code = Chloride Lvl) 104 95-109 [place] 124950-11-02 09:39:00 Test Item Value Reference Range Interpretation Comments CO2 (test code = CO2) 29 24-32 [place] 124950-11-02 09:39:00 Test Item Value Reference Range Interpretation Comments AGAP (test code = AGAP) 9.5 10.0-20.0 [place] 124950-11-02 09:39:00 Test Item Value Reference Range Interpretation Comments Calcium Lvl (test code = Calcium Lvl) 7.9 8.5-10.5 [place] 124950-11-02 09:39:00 Test Item Value Reference Range Interpretation Comments eGFR (test code = eGFR) 8 [place] 922080-11-02 09:39:00 Test Item Value Reference Range Interpretation Comments Neutrophils # (test code = Neutrophils 3.8 1.5-8.1 #) [place] 922080-11-02 09:39:00 Test Item Value Reference Range Interpretation Comments Lymphocytes # (test code = Lymphocytes 1.1 1.0-5.5 #) [place] 922080-11-02 09:39:00 Test Item Value Reference Range Interpretation Comments Monocytes # (test code 0.2 See_Comment [Aut omated message] The = Monocytes #) system which generated this result tra nsmitted reference range : <=0.8. The reference r yared was not used to int erpret this result as normal/abnormal . [place] 922080-11-02 09:39:00 Test Item Value Reference Range Interpretation Comments Eosinophils # (test code 0.4 See_Comment [A utomated message] The = Eosinophils #) system whic h generated this result tra nsmitted reference range : <=0.5. The reference r yared was not used to int erpret this result as normal/abnormal . [facility] CenterJedjhipXDGWDLMRXJ1983-07-[facility] 09:39:00 Test Item Value Reference Range Interpretation Comments Segs (test code = Segs) 64.0 45.0-75.0 [facility] CenterArfqcwuVDDDBMOIHY0043-87-61 09:39:00 Test Item Value Reference Range Interpretation Comments Bands (test code = 2.0 See_Comment [Automat ed message] The Bands) system which ge nerated this result transmit emerson reference range : <=11.0. The reference r yared was not used to interpr et this result as erinn l/abnormal. [facility] CenterJvkazybAIRKXETPLZ5989-76-70 09:39:00 Test Item Value Reference Range Interpretation Comments Lymphocytes (test code = Lymphocytes) 20.0 20.0-40.0 [facility] CenterRycryydPSRONGWVZW8124-55-75 09:39:00 Test Item Value Reference Range Interpretation Comments Monocytes (test code = Monocytes) 4.0 2.0-12.0 [facility] CenterVubpxihOOBYKZWPZW6455-01-98 09:39:00 Test Item Value Reference Range Interpretation Comments Eosinophils (test code = 7.0 See_Comment [A utomated message] The Eosinophils) system which ge nerated this result tra nsmitted reference range : <=4.0. The reference r yared was not used to int erpret this result as normal/abnormal . [facility] CenterVytdkbsJBFACKMTKE6814-35-78 09:39:00 Test Item Value Reference Range Interpretation Comments Myelocytes (test code = Myelocytes) 3.0 [facility] CenterCouixhwZDEGMVAISI3452-92-61 09:39:00 Test Item Value Reference Range Interpretation Comments Atypical Lymphs (test code = Atypical 0.0 Lymphs) [facility] CenterKcylxpmKUOCWEGNEB2393-96-19 09:39:00 Test Item Value Reference Range Interpretation Comments NRBC (test code = NRBC) 1 [facility] CenterEukwqxpVCWTGTMKVD5332-20-01 09:39:00 Test Item Value Reference Range Interpretation Comments RBC Morph (test code = Normal (08/10/20 3:39 RBC Morph) AM) [facility] CenterHsczambBSZPXHFRKG2124-96-57 09:39:00 Test Item Value Reference Range Interpretation Comments Plt Morph (test code = Normal (08/10/20 3:39 Plt Morph) AM) [facility] CenterIwnlkzeVXLLIJONRW5895-10-84 09:39:00 Test Item Value Reference Range Interpretation Comments WBC (test code = WBC) 5.7 3.7-10.4 [facility] CenterWdxrfiuSHKXAZIEMX8168-67-62 09:39:00 Test Item Value Reference Range Interpretation Comments RBC (test code = RBC) 2.61 4.70-6.10 [facility] CenterDwpfnugXVMCROUAHL6290-12-86 09:39:00 Test Item Value Reference Range Interpretation Comments Hgb (test code = Hgb) 7.5 14.0-18.0 [facility] CenterScihqnuACGIORNPST4186-76-31 09:39:00 Test Item Value Reference Range Interpretation Comments Hct (test code = Hct) 22.3 42.0-54.0 [facility] CenterNitrvpoGOXFDEOLUC1495-15-71 09:39:00 Test Item Value Reference Range Interpretation Comments MCV (test code = MCV) 85.6 80.0-94.0 [facility] CenterWlalrrnOXNWJDGJWC4985-31-36 09:39:00 Test Item Value Reference Range Interpretation Comments MCH (test code = MCH) 28.8 pg 27.0-31.0 [facility] CenterKoyvqehWVKLEPGCMO0483-41-92 09:39:00 Test Item Value Reference Range Interpretation Comments MCHC (test code = MCHC) 33.6 32.0-36.0 [facility] CenterQwyjyndOCYKAAZVIQ3383-09-80 09:39:00 Test Item Value Reference Range Interpretation Comments RDW (test code = RDW) 13.9 11.5-14.5 [place] 922080-11-02 09:39:00 Test Item Value Reference Range Interpretation Comments Platelet (test code = Platelet) 164 133-450 [facility] CenterHfaplogTMYPQSTTDB6590-50-30 09:39:00 Test Item Value Reference Range Interpretation Comments MPV (test code = MPV) 7.5 7.4-10.4 [facility]2020-11-02 09:39:00 Test Item Value Reference Range Interpretation Comments Glucose Lvl (test code = Glucose Lvl) 110 70-99 [facility]2020-11-02 09:39:00 Test Item Value Reference Range Interpretation Comments BUN (test code = BUN) 21 7-22 [place] 124950-11-02 09:39:00 Test Item Value Reference Range Interpretation Comments Creatinine Lvl (test code = Creatinine 6.77 0.50-1.40 Lvl) [place] 124950-11-02 09:39:00 Test Item Value Reference Range Interpretation Comments Sodium Lvl (test code = Sodium Lvl) 139 135-145 [place] 124950-11-02 09:39:00 Test Item Value Reference Range Interpretation Comments Potassium Lvl (test code = Potassium 3.5 3.5-5.1 Lvl) [place] 124950-11-02 09:39:00 Test Item Value Reference Range Interpretation Comments Chloride Lvl (test code = Chloride Lvl) 104 95-109 [place] 124950-11-02 09:39:00 Test Item Value Reference Range Interpretation Comments CO2 (test code = CO2) 29 24-32 [place] 124950-11-02 09:39:00 Test Item Value Reference Range Interpretation Comments AGAP (test code = AGAP) 9.5 10.0-20.0 [place] 124950-11-02 09:39:00 Test Item Value Reference Range Interpretation Comments Calcium Lvl (test code = Calcium Lvl) 7.9 8.5-10.5 [place] 124950-11-02 09:39:00 Test Item Value Reference Range Interpretation Comments eGFR (test code = eGFR) 8 [place] 922080-11-02 09:39:00 Test Item Value Reference Range Interpretation Comments Neutrophils # (test code = Neutrophils 3.8 1.5-8.1 #) [place] 922080-11-02 09:39:00 Test Item Value Reference Range Interpretation Comments Lymphocytes # (test code = Lymphocytes 1.1 1.0-5.5 #) [place] 922080-11-02 09:39:00 Test Item Value Reference Range Interpretation Comments Monocytes # (test code 0.2 See_Comment [Aut omated message] The = Monocytes #) system which generated this result tra nsmitted reference range : <=0.8. The reference r yared was not used to int erpret this result as normal/abnormal . [facility] CenterKfzzboeTGHFPRDARG1625-41-55 09:39:00 Test Item Value Reference Range Interpretation Comments Eosinophils # (test code 0.4 See_Comment [A utomated message] The = Eosinophils #) system whic h generated this result tra nsmitted reference range : <=0.5. The reference r yared was not used to int erpret this result as normal/abnormal . [facility] CenterZujpeztLDVFKZUXBS4788-44-82 09:39:00 Test Item Value Reference Range Interpretation Comments Segs (test code = Segs) 64.0 45.0-75.0 [facility] CenterNktolhnFEMLQEUFDC0461-98-25 09:39:00 Test Item Value Reference Range Interpretation Comments Bands (test code = 2.0 See_Comment [Automat ed message] The Bands) system which ge nerated this result transmit emerson reference range : <=11.0. The reference r yared was not used to interpr et this result as erinn l/abnormal. [facility] CenterGusvuqkJABFKRXFKH2219-60-45 09:39:00 Test Item Value Reference Range Interpretation Comments Lymphocytes (test code = Lymphocytes) 20.0 20.0-40.0 [facility] CenterUnviuihSJWCETZYJW3896-56-45 09:39:00 Test Item Value Reference Range Interpretation Comments Monocytes (test code = Monocytes) 4.0 2.0-12.0 [facility] CenterNkhxdrzREWVHAJDDK4009-14-54 09:39:00 Test Item Value Reference Range Interpretation Comments Eosinophils (test code = 7.0 See_Comment [A utomated message] The Eosinophils) system which ge nerated this result tra nsmitted reference range : <=4.0. The reference r yared was not used to int erpret this result as normal/abnormal . [facility] CenterSgvewvvEUYSGQSLTQ7929-30-78 09:39:00 Test Item Value Reference Range Interpretation Comments Myelocytes (test code = Myelocytes) 3.0 [facility] CenterImbwspuZHZIUCNCLO3983-62-04 09:39:00 Test Item Value Reference Range Interpretation Comments Atypical Lymphs (test code = Atypical 0.0 Lymphs) [facility] CenterEjiperlRKBADVLOAL2831-79-60 09:39:00 Test Item Value Reference Range Interpretation Comments NRBC (test code = NRBC) 1 [facility] CenterKfshkhhXACACQFAKT7393-89-44 09:39:00 Test Item Value Reference Range Interpretation Comments RBC Morph (test code = Normal (08/10/20 3:39 RBC Morph) AM) [facility] CenterRrwlqbrRLXYQVWMWN9759-05-84 09:39:00 Test Item Value Reference Range Interpretation Comments Plt Morph (test code = Normal (08/10/20 3:39 Plt Morph) AM) [facility] CenterCpoetgnBSTXWIHWXO1801-01-82 09:39:00 Test Item Value Reference Range Interpretation Comments WBC (test code = WBC) 5.7 3.7-10.4 [facility] CenterFibuyzbNMKUPTJJEX7501-44-21 09:39:00 Test Item Value Reference Range Interpretation Comments RBC (test code = RBC) 2.61 4.70-6.10 [facility] CenterJbzvfbyQDKGWYJBDG8087-88-26 09:39:00 Test Item Value Reference Range Interpretation Comments Hgb (test code = Hgb) 7.5 14.0-18.0 [facility] CenterOsbjspiORHTHDOZAE0904-49-96 09:39:00 Test Item Value Reference Range Interpretation Comments Hct (test code = Hct) 22.3 42.0-54.0 [facility] CenterDrwlfsyZYFKBXJXOE6508-92-95 09:39:00 Test Item Value Reference Range Interpretation Comments MCV (test code = MCV) 85.6 80.0-94.0 [facility]ZhevvsrKKGPODICKI4048-71-49 09:39:00 Test Item Value Reference Range Interpretation Comments MCH (test code = MCH) 28.8 pg 27.0-31.0 [facility] CenterIpskswqXIBEGIPBEB2577-21-95 09:39:00 Test Item Value Reference Range Interpretation Comments MCHC (test code = MCHC) 33.6 32.0-36.0 [facility] CenterKddnoshFAXXJGXFPR0711-53-62 09:39:00 Test Item Value Reference Range Interpretation Comments RDW (test code = RDW) 13.9 11.5-14.5 [facility] CenterTykbiujAXNMNWHUBE4213-41-81 09:39:00 Test Item Value Reference Range Interpretation Comments Platelet (test code = Platelet) 164 133-450 [facility] HospitalVomladuFVMIHDEVXR3310-95-82 09:39:00 Test Item Value Reference Range Interpretation Comments MPV (test code = MPV) 7.5 7.4-10.4 [facility]2020-11-02 09:39:00 Test Item Value Reference Range Interpretation Comments Glucose Lvl (test code = Glucose Lvl) 110 70-99 [place] 124950-11-02 09:39:00 Test Item Value Reference Range Interpretation Comments BUN (test code = BUN) 21 7-22 [place] 124950-11-02 09:39:00 Test Item Value Reference Range Interpretation Comments Creatinine Lvl (test code = Creatinine 6.77 0.50-1.40 Lvl) [place] 124950-11-02 09:39:00 Test Item Value Reference Range Interpretation Comments Sodium Lvl (test code = Sodium Lvl) 139 135-145 [place] [address]-11-02 09:39:00 Test Item Value Reference Range Interpretation Comments Potassium Lvl (test code = Potassium 3.5 3.5-5.1 Lvl) [place] 124950-11-02 09:39:00 Test Item Value Reference Range Interpretation Comments Chloride Lvl (test code = Chloride Lvl) 104 95-109 [place] 124950-11-02 09:39:00 Test Item Value Reference Range Interpretation Comments CO2 (test code = CO2) 29 24-32 [place] 124950-11-02 09:39:00 Test Item Value Reference Range Interpretation Comments AGAP (test code = AGAP) 9.5 10.0-20.0 [place] [address]-11-02 09:39:00 Test Item Value Reference Range Interpretation Comments Calcium Lvl (test code = Calcium Lvl) 7.9 8.5-10.5 [place] 124950-11-02 09:39:00 Test Item Value Reference Range Interpretation Comments eGFR (test code = eGFR) 8 [place] 922080-11-02 09:39:00 Test Item Value Reference Range Interpretation Comments Neutrophils # (test code = Neutrophils 3.8 1.5-8.1 #) [place] 922080-11-02 09:39:00 Test Item Value Reference Range Interpretation Comments Lymphocytes # (test code = Lymphocytes 1.1 1.0-5.5 #) [place] 922080-11-02 09:39:00 Test Item Value Reference Range Interpretation Comments Monocytes # (test code 0.2 See_Comment [Aut omated message] The = Monocytes #) system which generated this result tra nsmitted reference range : <=0.8. The reference r yared was not used to int erpret this result as normal/abnormal . [facility] CenterPsvgoerEYVJLFYXGD3505-33-25 09:39:00 Test Item Value Reference Range Interpretation Comments Eosinophils # (test code 0.4 See_Comment [A utomated message] The = Eosinophils #) system whic h generated this result tra nsmitted reference range : <=0.5. The reference r yared was not used to int erpret this result as normal/abnormal . [facility] CenterXeosqpyUZDSVUJTCZ8680-99-81 09:39:00 Test Item Value Reference Range Interpretation Comments Segs (test code = Segs) 64.0 45.0-75.0 [facility] CenterJbyohzvVTPFKMPJJO8013-15-27 09:39:00 Test Item Value Reference Range Interpretation Comments Bands (test code = 2.0 See_Comment [Automat ed message] The Bands) system which ge nerated this result transmit emerson reference range : <=11.0. The reference r yared was not used to interpr et this result as erinn l/abnormal. [facility] CenterVpqlluyFBQECOONQY4626-32-58 09:39:00 Test Item Value Reference Range Interpretation Comments Lymphocytes (test code = Lymphocytes) 20.0 20.0-40.0 [facility] CenterPoovzkvVMEJNQHGFB6048-98-68 09:39:00 Test Item Value Reference Range Interpretation Comments Monocytes (test code = Monocytes) 4.0 2.0-12.0 [facility] CenterJuylotsAMVHEJMGBT0435-80-72 09:39:00 Test Item Value Reference Range Interpretation Comments Eosinophils (test code = 7.0 See_Comment [A utomated message] The Eosinophils) system which ge nerated this result tra nsmitted reference range : <=4.0. The reference r yared was not used to int erpret this result as normal/abnormal . [facility] CenterGymhgmkZVQFLDPCRK7501-06-52 09:39:00 Test Item Value Reference Range Interpretation Comments Myelocytes (test code = Myelocytes) 3.0 [facility] CenterCafyhrdXHEHMBTJSW4503-61-59 09:39:00 Test Item Value Reference Range Interpretation Comments Atypical Lymphs (test code = Atypical 0.0 Lymphs) [facility] CenterUbfpghzBIYDCAGPRG5473-48-57 09:39:00 Test Item Value Reference Range Interpretation Comments NRBC (test code = NRBC) 1 [place] 922080-11-02 09:39:00 Test Item Value Reference Range Interpretation Comments RBC Morph (test code = Normal (08/10/20 3:39 RBC Morph) AM) [facility] CenterLjyonxbKMJVLAGOWK9363-73-70 09:39:00 Test Item Value Reference Range Interpretation Comments Plt Morph (test code = Normal (08/10/20 3:39 Plt Morph) AM) [facility] CenterHhpfylgZXHFRHJQHS0433-55-51 09:39:00 Test Item Value Reference Range Interpretation Comments WBC (test code = WBC) 5.7 3.7-10.4 [facility] CenterPdmtkdoYQJLZSNMOZ5587-30-17 09:39:00 Test Item Value Reference Range Interpretation Comments RBC (test code = RBC) 2.61 4.70-6.10 [facility] CenterWevyyfgHPHQGBWOUQ0938-29-29 09:39:00 Test Item Value Reference Range Interpretation Comments Hgb (test code = Hgb) 7.5 14.0-18.0 [facility] CenterEmlphbfXAOHMCUOFO4233-37-19 09:39:00 Test Item Value Reference Range Interpretation Comments Hct (test code = Hct) 22.3 42.0-54.0 [facility] CenterZzqxmlrYPDJRSALBI8682-27-27 09:39:00 Test Item Value Reference Range Interpretation Comments MCV (test code = MCV) 85.6 80.0-94.0 [facility] CenterOifufplQNTVSXKAQK3203-93-84 09:39:00 Test Item Value Reference Range Interpretation Comments MCH (test code = MCH) 28.8 pg 27.0-31.0 [facility] CenterLridksqSFPPBAIQKK8236-60-71 09:39:00 Test Item Value Reference Range Interpretation Comments MCHC (test code = MCHC) 33.6 32.0-36.0 [facility] CenterLcdxqwtJZUJUBFTHW9132-56-09 09:39:00 Test Item Value Reference Range Interpretation Comments RDW (test code = RDW) 13.9 11.5-14.5 [facility] CenterLhgxkztLGNTQMOUPK1899-01-49 09:39:00 Test Item Value Reference Range Interpretation Comments Platelet (test code = Platelet) 164 133-450 [facility] CenterYtcubywAMGGOJTPVT9966-23-79 09:39:00 Test Item Value Reference Range Interpretation Comments MPV (test code = MPV) 7.5 7.4-10.4 [facility] CenterDtrkkmbQBCIQZJBZP1361-22-62 16:40:00 Test Item Value Reference Range Interpretation Comments Basophils (test code = 0.6 See_Comment [Aut omated message] The Basophils) system which ge nerated this result tra nsmitted reference range : <=1.0. The reference r yared was not used to int erpret this result as normal/abnormal . [facility] CenterQkqfgfhHUXVYKTGXQ8959-75-54 16:40:00 Test Item Value Reference Range Interpretation Comments WBC (test code = WBC) 5.7 3.7-10.4 [facility] CenterJpcrjwgYYLNWNSCZJ8713-27-67 16:40:00 Test Item Value Reference Range Interpretation Comments RBC (test code = RBC) 2.82 4.70-6.10 [facility] CenterOtsrsctJRKMFCLFHP9269-58-57 16:40:00 Test Item Value Reference Range Interpretation Comments Hgb (test code = Hgb) 8.0 14.0-18.0 [facility] CenterRbktynjUHUAABEGUH9417-27-66 16:40:00 Test Item Value Reference Range Interpretation Comments Hct (test code = Hct) 24.2 42.0-54.0 [facility] CenterRdrurbuJCWRNRIVJT5366-20-29 16:40:00 Test Item Value Reference Range Interpretation Comments MCV (test code = MCV) 85.8 80.0-94.0 [facility] CenterBvbfdgbUXDWWYRAKD3837-17-38 16:40:00 Test Item Value Reference Range Interpretation Comments MCH (test code = MCH) 28.6 pg 27.0-31.0 [facility] CenterDbajqavAPUJZZVZTT6549-36-92 16:40:00 Test Item Value Reference Range Interpretation Comments MCHC (test code = MCHC) 33.3 32.0-36.0 [facility] CenterBikybzlCQDKJRSGGX0664-62-11 16:40:00 Test Item Value Reference Range Interpretation Comments RDW (test code = RDW) 14.1 11.5-14.5 [place] 922080-11-01 16:40:00 Test Item Value Reference Range Interpretation Comments Platelet (test code = Platelet) 169 133-450 [facility] CenterHohdxlfLAHHVUUCNV9942-96-86 16:40:00 Test Item Value Reference Range Interpretation Comments MPV (test code = MPV) 7.2 7.4-10.4 [facility] CenterWthczqyBBBLTXBLON3823-20-63 16:40:00 Test Item Value Reference Range Interpretation Comments Segs (test code = Segs) 72.6 45.0-75.0 [facility] CenterGydvhaxDGJPRZSVWU0406-31-72 16:40:00 Test Item Value Reference Range Interpretation Comments Lymphocytes (test code = Lymphocytes) 14.6 20.0-40.0 [facility] CenterHajfdzfVXMGOUXIAC5012-39-53 16:40:00 Test Item Value Reference Range Interpretation Comments Monocytes (test code = Monocytes) 7.8 2.0-12.0 [facility] CenterGjiqoetYYHJUYNUEN1856-99-40 16:40:00 Test Item Value Reference Range Interpretation Comments Eosinophils (test code = 4.4 See_Comment [A utomated message] The Eosinophils) system which ge nerated this result tra nsmitted reference range : <=4.0. The reference r yared was not used to int erpret this result as normal/abnormal . [facility] CenterKndptlxZUZKTUVWIN7822-05-40 16:40:00 Test Item Value Reference Range Interpretation Comments Neutrophils # (test code = Neutrophils 4.2 1.5-8.1 #) [facility] CenterXcggjcvHDWRMXGSLA9474-70-37 16:40:00 Test Item Value Reference Range Interpretation Comments Lymphocytes # (test code = Lymphocytes 0.8 1.0-5.5 #) [facility] CenterNkqtktbHVEKKQUKZS1550-24-66 16:40:00 Test Item Value Reference Range Interpretation Comments Monocytes # (test code 0.4 See_Comment [Aut omated message] The = Monocytes #) system which generated this result tra nsmitted reference range : <=0.8. The reference r yared was not used to int erpret this result as normal/abnormal . [facility] CenterJwavorfFYWWKPQQCD0219-78-86 16:40:00 Test Item Value Reference Range Interpretation Comments Eosinophils # (test code 0.2 See_Comment [A utomated message] The = Eosinophils #) system whic h generated this result tra nsmitted reference range : <=0.5. The reference r yared was not used to int erpret this result as normal/abnormal . [facility]IubmtelNWHLBKXBJJ4969-59-51 16:40:00 Test Item Value Reference Range Interpretation Comments Hep B Core Ab (test code = Hep B NON-REACTIVE Core Ab) [facility] HospitalRufsyyfNVEWOXFOGL3542-79-77 16:40:00 Test Item Value Reference Range Interpretation Comments Hep Bs Ag (test code = Hep Bs NON-REACTIVE Ag) [facility] HospitalKxgwrlqAIJIQXLMMB3537-66-74 16:40:00 Test Item Value Reference Range Interpretation Comments Hep Bs Ab (test code = Hep Bs Ab) 7 [facility] CenterCehnnjwOPPGZUTOEH6010-46-25 16:40:00 Test Item Value Reference Range Interpretation Comments Basophils (test code = 0.6 See_Comment [Aut omated message] The Basophils) system which ge nerated this result tra nsmitted reference range : <=1.0. The reference r yared was not used to int erpret this result as normal/abnormal . [facility] CenterFgqbhduFHKMUCTOEW3208-17-03 16:40:00 Test Item Value Reference Range Interpretation Comments WBC (test code = WBC) 5.7 3.7-10.4 [facility] CenterWcctpoiHQYBSJASEV9611-58-49 16:40:00 Test Item Value Reference Range Interpretation Comments RBC (test code = RBC) 2.82 4.70-6.10 [facility]CndymplNIQIWPTRYF0496-02-36 16:40:00 Test Item Value Reference Range Interpretation Comments Hgb (test code = Hgb) 8.0 14.0-18.0 [facility] CenterTcjkrdrCRHBQFOSPD9525-01-74 16:40:00 Test Item Value Reference Range Interpretation Comments Hct (test code = Hct) 24.2 42.0-54.0 [facility] CenterHkafhkpKZRQOLINOX9822-08-84 16:40:00 Test Item Value Reference Range Interpretation Comments MCV (test code = MCV) 85.8 80.0-94.0 [facility] CenterKrgsbluTZBONFGGJV8847-36-01 16:40:00 Test Item Value Reference Range Interpretation Comments MCH (test code = MCH) 28.6 pg 27.0-31.0 [facility] CenterSpjsokuGBZVSXGZBW0443-02-31 16:40:00 Test Item Value Reference Range Interpretation Comments MCHC (test code = MCHC) 33.3 32.0-36.0 [facility] CenterGkaomsbKUPTKJIEPE4894-16-60 16:40:00 Test Item Value Reference Range Interpretation Comments RDW (test code = RDW) 14.1 11.5-14.5 [place] 922080-11-01 16:40:00 Test Item Value Reference Range Interpretation Comments Platelet (test code = Platelet) 169 133-450 [facility] CenterQztfcguFWYUOTYJEM4716-96-28 16:40:00 Test Item Value Reference Range Interpretation Comments MPV (test code = MPV) 7.2 7.4-10.4 [facility] CenterIdqzkeoNUZMFQKAMK4431-48-99 16:40:00 Test Item Value Reference Range Interpretation Comments Segs (test code = Segs) 72.6 45.0-75.0 [place] 922080-11-01 16:40:00 Test Item Value Reference Range Interpretation Comments Lymphocytes (test code = Lymphocytes) 14.6 20.0-40.0 [facility] CenterNuzjvqcHHIYNDGTIH6248-58-74 16:40:00 Test Item Value Reference Range Interpretation Comments Monocytes (test code = Monocytes) 7.8 2.0-12.0 [facility] CenterEjrgpohLVTEDKMSSF1534-75-05 16:40:00 Test Item Value Reference Range Interpretation Comments Eosinophils (test code = 4.4 See_Comment [A utomated message] The Eosinophils) system which ge nerated this result tra nsmitted reference range : <=4.0. The reference r yared was not used to int erpret this result as normal/abnormal . [facility] CenterAuvbgoeQCLZXTHFKT2485-29-58 16:40:00 Test Item Value Reference Range Interpretation Comments Neutrophils # (test code = Neutrophils 4.2 1.5-8.1 #) [facility] CenterTftlbcyKVVRNNXBNL6510-45-74 16:40:00 Test Item Value Reference Range Interpretation Comments Lymphocytes # (test code = Lymphocytes 0.8 1.0-5.5 #) [facility] CenterWgsrwfuJXBCMQFTQW4394-50-16 16:40:00 Test Item Value Reference Range Interpretation Comments Monocytes # (test code 0.4 See_Comment [Aut omated message] The = Monocytes #) system which generated this result tra nsmitted reference range : <=0.8. The reference r yared was not used to int erpret this result as normal/abnormal . [place] 922080-11-01 16:40:00 Test Item Value Reference Range Interpretation Comments Eosinophils # (test code 0.2 See_Comment [A utomated message] The = Eosinophils #) system whic h generated this result tra nsmitted reference range : <=0.5. The reference r yared was not used to int erpret this result as normal/abnormal . [facility]MnvomrhVNMNSSOVUP2721-76-29 16:40:00 Test Item Value Reference Range Interpretation Comments Hep B Core Ab (test code = Hep B NON-REACTIVE Core Ab) [facility]ANXHDFMOY5803-34-02 16:40:00 Test Item Value Reference Range Interpretation Comments Hep Bs Ag (test code = Hep Bs NON-REACTIVE Ag) [facility] HospitalHboxbfyDPWLHIQRZR3134-79-62 16:40:00 Test Item Value Reference Range Interpretation Comments Hep Bs Ab (test code = Hep Bs Ab) 7 [facility] CenterZjboslvMZAFTZTQUA3015-86-94 16:40:00 Test Item Value Reference Range Interpretation Comments Basophils (test code = 0.6 See_Comment [Aut omated message] The Basophils) system which ge nerated this result tra nsmitted reference range : <=1.0. The reference r yared was not used to int erpret this result as normal/abnormal . [facility] CenterZhcbsooYKXEPWJBBZ5953-59-70 16:40:00 Test Item Value Reference Range Interpretation Comments WBC (test code = WBC) 5.7 3.7-10.4 [facility] CenterLxatpfaRGMHCFCQIM6349-27-63 16:40:00 Test Item Value Reference Range Interpretation Comments RBC (test code = RBC) 2.82 4.70-6.10 [facility] CenterRaghpilTWXOSOPSZL5191-29-25 16:40:00 Test Item Value Reference Range Interpretation Comments Hgb (test code = Hgb) 8.0 14.0-18.0 [facility] CenterDuqptyzZFUZZCZSHM0874-36-52 16:40:00 Test Item Value Reference Range Interpretation Comments Hct (test code = Hct) 24.2 42.0-54.0 [facility] CenterNyuogyyKEQYVZDBKG2011-64-99 16:40:00 Test Item Value Reference Range Interpretation Comments MCV (test code = MCV) 85.8 80.0-94.0 [facility] CenterNzmfgztTMJSNBCOOM8404-21-01 16:40:00 Test Item Value Reference Range Interpretation Comments MCH (test code = MCH) 28.6 pg 27.0-31.0 [facility] CenterZwsjmjtHXLFMUJDXO7535-22-02 16:40:00 Test Item Value Reference Range Interpretation Comments MCHC (test code = MCHC) 33.3 32.0-36.0 [facility] CenterOqqlrlsQTGMLMPHQR9683-99-29 16:40:00 Test Item Value Reference Range Interpretation Comments RDW (test code = RDW) 14.1 11.5-14.5 [facility] CenterTvpwwglDBCXAQSEOJ4889-45-84 16:40:00 Test Item Value Reference Range Interpretation Comments Platelet (test code = Platelet) 169 133-450 [facility] CenterKdnadkzVVUPHYCPZX6656-70-37 16:40:00 Test Item Value Reference Range Interpretation Comments MPV (test code = MPV) 7.2 7.4-10.4 [place] [address]-11-01 16:40:00 Test Item Value Reference Range Interpretation Comments Segs (test code = Segs) 72.6 45.0-75.0 [place] 922080-11-01 16:40:00 Test Item Value Reference Range Interpretation Comments Lymphocytes (test code = Lymphocytes) 14.6 20.0-40.0 [place] 922080-11-01 16:40:00 Test Item Value Reference Range Interpretation Comments Monocytes (test code = Monocytes) 7.8 2.0-12.0 [place] 922080-11-01 16:40:00 Test Item Value Reference Range Interpretation Comments Eosinophils (test code = 4.4 See_Comment [A utomated message] The Eosinophils) system which ge nerated this result tra nsmitted reference range : <=4.0. The reference r yared was not used to int erpret this result as normal/abnormal . [facility] CenterJdmwgchRDBFSDKFGF9127-52-56 16:40:00 Test Item Value Reference Range Interpretation Comments Neutrophils # (test code = Neutrophils 4.2 1.5-8.1 #) [place] 922080-11-01 16:40:00 Test Item Value Reference Range Interpretation Comments Lymphocytes # (test code = Lymphocytes 0.8 1.0-5.5 #) [place] [address]-11-01 16:40:00 Test Item Value Reference Range Interpretation Comments Monocytes # (test code 0.4 See_Comment [Aut omated message] The = Monocytes #) system which generated this result tra nsmitted reference range : <=0.8. The reference r yared was not used to int erpret this result as normal/abnormal . [place] 922080-11-01 16:40:00 Test Item Value Reference Range Interpretation Comments Eosinophils # (test code 0.2 See_Comment [A utomated message] The = Eosinophils #) system [facility] generated this result tra nsmitted reference range : <=0.5. The reference r yared was not used to int erpret this result as normal/abnormal . [facility] HospitalDkiyqmiDJZOUVBZYK4482-12-27 16:40:00 Test Item Value Reference Range Interpretation Comments Hep B Core Ab (test code = Hep B NON-REACTIVE Core Ab) [facility] HospitalDkjjxzlRECGAKIJMR3543-70-81 16:40:00 Test Item Value Reference Range Interpretation Comments Hep Bs Ag (test code = Hep Bs NON-REACTIVE Ag) [facility] HospitalPlhdwnkUURNGWBBPQ2101-20-85 16:40:00 Test Item Value Reference Range Interpretation Comments Hep Bs Ab (test code = Hep Bs Ab) 7 [facility] CenterSogulxiFUZEHMVBPX4136-93-54 16:40:00 Test Item Value Reference Range Interpretation Comments Basophils (test code = 0.6 See_Comment [Aut omated message] The Basophils) system which ge nerated this result tra nsmitted reference range : <=1.0. The reference r yared was not used to int erpret this result as normal/abnormal . [facility] CenterBdzhijxXLLWSCOHCE5239-28-45 16:40:00 Test Item Value Reference Range Interpretation Comments WBC (test code = WBC) 5.7 3.7-10.4 [facility] CenterBfbgzksDPQMDKDVPO4509-65-87 16:40:00 Test Item Value Reference Range Interpretation Comments RBC (test code = RBC) 2.82 4.70-6.10 [facility] CenterHgauyegHEUFSFTDTB2280-19-49 16:40:00 Test Item Value Reference Range Interpretation Comments Hgb (test code = Hgb) 8.0 14.0-18.0 [facility] CenterUeklfvsMCHHTZJHMI2595-40-36 16:40:00 Test Item Value Reference Range Interpretation Comments Hct (test code = Hct) 24.2 42.0-54.0 [facility]IelkkbjSOCOFNWVRS7881-69-60 16:40:00 Test Item Value Reference Range Interpretation Comments MCV (test code = MCV) 85.8 80.0-94.0 [facility] HospitalEajlokiPKNIJBGUOX0696-27-53 16:40:00 Test Item Value Reference Range Interpretation Comments MCH (test code = MCH) 28.6 pg 27.0-31.0 [facility] CenterKifvnlaYIBLHDNGOU6336-34-07 16:40:00 Test Item Value Reference Range Interpretation Comments MCHC (test code = MCHC) 33.3 32.0-36.0 [place] 922080-11-01 16:40:00 Test Item Value Reference Range Interpretation Comments RDW (test code = RDW) 14.1 11.5-14.5 [place] 922080-11-01 16:40:00 Test Item Value Reference Range Interpretation Comments Platelet (test code = Platelet) 169 133-450 [place] 922080-11-01 16:40:00 Test Item Value Reference Range Interpretation Comments MPV (test code = MPV) 7.2 7.4-10.4 [place] 922080-11-01 16:40:00 Test Item Value Reference Range Interpretation Comments Segs (test code = Segs) 72.6 45.0-75.0 [place] 922080-11-01 16:40:00 Test Item Value Reference Range Interpretation Comments Lymphocytes (test code = Lymphocytes) 14.6 20.0-40.0 [place] 922080-11-01 16:40:00 Test Item Value Reference Range Interpretation Comments Monocytes (test code = Monocytes) 7.8 2.0-12.0 [place] 922080-11-01 16:40:00 Test Item Value Reference Range Interpretation Comments Eosinophils (test code = 4.4 See_Comment [A utomated message] The Eosinophils) system which ge nerated this result tra nsmitted reference range : <=4.0. The reference r yared was not used to int erpret this result as normal/abnormal . [facility] CenterTsmgcelBLZLXRNLXY3514-64-17 16:40:00 Test Item Value Reference Range Interpretation Comments Neutrophils # (test code = Neutrophils 4.2 1.5-8.1 #) [place] 922080-11-01 16:40:00 Test Item Value Reference Range Interpretation Comments Lymphocytes # (test code = Lymphocytes 0.8 1.0-5.5 #) [place] [address]-11-01 16:40:00 Test Item Value Reference Range Interpretation Comments Monocytes # (test code 0.4 See_Comment [Aut omated message] The = Monocytes #) system which generated this result tra nsmitted reference range : <=0.8. The reference r yared was not used to int erpret this result as normal/abnormal . [place] 922080-11-01 16:40:00 Test Item Value Reference Range Interpretation Comments Eosinophils # (test code 0.2 See_Comment [A utomated message] The = Eosinophils #) system whic h generated this result tra nsmitted reference range : <=0.5. The reference r yared was not used to int erpret this result as normal/abnormal . [facility]FgkwrrgPGFJMQUKIV0961-87-08 16:40:00 Test Item Value Reference Range Interpretation Comments Hep B Core Ab (test code = Hep B NON-REACTIVE Core Ab) [facility] HospitalAneqjdtGXJXCPUJKT8329-33-47 16:40:00 Test Item Value Reference Range Interpretation Comments Hep Bs Ag (test code = Hep Bs NON-REACTIVE Ag) [facility] HospitalXrrtwtrYEEHEOVGNB5911-57-14 16:40:00 Test Item Value Reference Range Interpretation Comments Hep Bs Ab (test code = Hep Bs Ab) 7 [facility] [employer] [id number] 14:48:00 Test Item Value Reference Range Interpretation Comments Total Protein (test code = Total 4.2 6.4-8.4 Protein) [facility] [employer]2020-11-01 14:48:00 Test Item Value Reference Range Interpretation Comments Albumin Lvl (test code = Albumin Lvl) 1.3 3.5-5.0 [facility] [employer]2020-11-01 14:48:00 Test Item Value Reference Range Interpretation Comments ALT (test code = ALT) 14 See_Comment [Auto mated message] The system which ge nerated this result transmit emerson reference range : <=65. The reference range was not used to interpr et this result as erinn l/abnormal. [facility] [employer]2020-11-01 14:48:00 Test Item Value Reference Range Interpretation Comments AST (test code = AST) 17 See_Comment [Auto mated message] The system which ge nerated this result transmit emerson reference range : <=37. The reference range was not used to interpr et this result as erinn l/abnormal. [facility] [employer]2020-11-01 14:48:00 Test Item Value Reference Range Interpretation Comments Alk Phos (test code = Alk Phos) 92 39-136 [facility] [employer]2020-11-01 14:48:00 Test Item Value Reference Range Interpretation Comments Bili Total (test code = Bili Total) 0.5 0.2-1.3 [place] 124950-11-01 14:48:00 Test Item Value Reference Range Interpretation Comments B/C Ratio (test code = B/C Ratio) 3 1 6-25 [place] 124950-11-01 14:48:00 Test Item Value Reference Range Interpretation Comments Globulin (test code = Globulin) 2.9 2.7-4.2 [place] 124950-11-01 14:48:00 Test Item Value Reference Range Interpretation Comments A/G Ratio (test code = A/G Ratio) 0.4 1 0.7-1.6 [place] [address]-11-01 14:48:00 Test Item Value Reference Range Interpretation Comments Magnesium Lvl (test code = Magnesium 1.8 1.8-2.4 Lvl) [place] 124950-11-01 14:48:00 Test Item Value Reference Range Interpretation Comments Glucose Lvl (test code = Glucose Lvl) 70 70-99 [place] 124950-11-01 14:48:00 Test Item Value Reference Range Interpretation Comments BUN (test code = BUN) 25 7-22 [place] 124950-11-01 14:48:00 Test Item Value Reference Range Interpretation Comments Creatinine Lvl (test code = Creatinine 8.85 0.50-1.40 Lvl) [facility]2020-11-01 14:48:00 Test Item Value Reference Range Interpretation Comments Sodium Lvl (test code = Sodium Lvl) 139 135-145 [place] 124950-11-01 14:48:00 Test Item Value Reference Range Interpretation Comments Potassium Lvl (test code = Potassium 4.0 3.5-5.1 Lvl) [facility]2020-11-01 14:48:00 Test Item Value Reference Range Interpretation Comments Chloride Lvl (test code = Chloride Lvl) 100 95-109 [place] 124950-11-01 14:48:00 Test Item Value Reference Range Interpretation Comments CO2 (test code = CO2) 30 24-32 [place] 124950-11-01 14:48:00 Test Item Value Reference Range Interpretation Comments Calcium Lvl (test code = Calcium Lvl) 7.5 8.5-10.5 [place] 124950-11-01 14:48:00 Test Item Value Reference Range Interpretation Comments AGAP (test code = AGAP) 13.0 10.0-20.0 [facility] [id number] 14:48:00 Test Item Value Reference Range Interpretation Comments eGFR (test code = eGFR) 6 [facility] [id number] 14:48:00 Test Item Value Reference Range Interpretation Comments Total Protein (test code = Total 4.2 6.4-8.4 Protein) [facility] [id number] 14:48:00 Test Item Value Reference Range Interpretation Comments Albumin Lvl (test code = Albumin Lvl) 1.3 3.5-5.0 [facility] [id number] 14:48:00 Test Item Value Reference Range Interpretation Comments ALT (test code = ALT) 14 See_Comment [Auto mated message] The system which ge nerated this result transmit emerson reference range : <=65. The reference range was not used to interpr et this result as erinn l/abnormal. [facility] [id number] 14:48:00 Test Item Value Reference Range Interpretation Comments AST (test code = AST) 17 See_Comment [Auto mated message] The system which ge nerated this result transmit emerson reference range : <=37. The reference range was not used to interpr et this result as erinn l/abnormal. [facility] [id number] 14:48:00 Test Item Value Reference Range Interpretation Comments Alk Phos (test code = Alk Phos) 92 39-136 [facility] [id number] 14:48:00 Test Item Value Reference Range Interpretation Comments Bili Total (test code = Bili Total) 0.5 0.2-1.3 [facility] [id number] 14:48:00 Test Item Value Reference Range Interpretation Comments B/C Ratio (test code = B/C Ratio) 3 1 6-25 [facility] [id number] 14:48:00 Test Item Value Reference Range Interpretation Comments Globulin (test code = Globulin) 2.9 2.7-4.2 [facility] [id number] 14:48:00 Test Item Value Reference Range Interpretation Comments A/G Ratio (test code = A/G Ratio) 0.4 1 0.7-1.6 [place] 124950-11-01 14:48:00 Test Item Value Reference Range Interpretation Comments Magnesium Lvl (test code = Magnesium 1.8 1.8-2.4 Lvl) [place] 124950-11-01 14:48:00 Test Item Value Reference Range Interpretation Comments Glucose Lvl (test code = Glucose Lvl) 70 70-99 [place] [address]-11-01 14:48:00 Test Item Value Reference Range Interpretation Comments BUN (test code = BUN) 25 7-22 [place] 124950-11-01 14:48:00 Test Item Value Reference Range Interpretation Comments Creatinine Lvl (test code = Creatinine 8.85 0.50-1.40 Lvl) [place] [address]-11-01 14:48:00 Test Item Value Reference Range Interpretation Comments Sodium Lvl (test code = Sodium Lvl) 139 135-145 [place] [address]-11-01 14:48:00 Test Item Value Reference Range Interpretation Comments Potassium Lvl (test code = Potassium 4.0 3.5-5.1 Lvl) [place] 124950-11-01 14:48:00 Test Item Value Reference Range Interpretation Comments Chloride Lvl (test code = Chloride Lvl) 100 95-109 [place] [address]-11-01 14:48:00 Test Item Value Reference Range Interpretation Comments CO2 (test code = CO2) 30 24-32 [place] 124950-11-01 14:48:00 Test Item Value Reference Range Interpretation Comments Calcium Lvl (test code = Calcium Lvl) 7.5 8.5-10.5 [place] 124950-11-01 14:48:00 Test Item Value Reference Range Interpretation Comments AGAP (test code = AGAP) 13.0 10.0-20.0 [place] [address]-11-01 14:48:00 Test Item Value Reference Range Interpretation Comments eGFR (test code = eGFR) 6 [place] 124950-11-01 14:48:00 Test Item Value Reference Range Interpretation Comments Total Protein (test code = Total 4.2 6.4-8.4 Protein) [place] 124950-11-01 14:48:00 Test Item Value Reference Range Interpretation Comments Albumin Lvl (test code = Albumin Lvl) 1.3 3.5-5.0 [facility] [employer] [id number] 14:48:00 Test Item Value Reference Range Interpretation Comments ALT (test code = ALT) 14 See_Comment [Auto mated message] The system which ge nerated this result transmit emerson reference range : <=65. The reference range was not used to interpr et this result as erinn l/abnormal. [facility] [employer] [id number] 14:48:00 Test Item Value Reference Range Interpretation Comments AST (test code = AST) 17 See_Comment [Auto mated message] The system which ge nerated this result transmit emerson reference range : <=37. The reference range was not used to interpr et this result as erinn l/abnormal. [facility] [employer] [id number] 14:48:00 Test Item Value Reference Range Interpretation Comments Alk Phos (test code = Alk Phos) 92 39-136 [facility] [employer] [id number] 14:48:00 Test Item Value Reference Range Interpretation Comments Bili Total (test code = Bili Total) 0.5 0.2-1.3 [facility] [id number] 14:48:00 Test Item Value Reference Range Interpretation Comments B/C Ratio (test code = B/C Ratio) 3 1 6-25 [facility] [id number] 14:48:00 Test Item Value Reference Range Interpretation Comments Globulin (test code = Globulin) 2.9 2.7-4.2 [facility] [employer] [id number] 14:48:00 Test Item Value Reference Range Interpretation Comments A/G Ratio (test code = A/G Ratio) 0.4 1 0.7-1.6 [facility] [employer] [id number] 14:48:00 Test Item Value Reference Range Interpretation Comments Magnesium Lvl (test code = Magnesium 1.8 1.8-2.4 Lvl) [facility] [id number] 14:48:00 Test Item Value Reference Range Interpretation Comments Glucose Lvl (test code = Glucose Lvl) 70 70-99 [facility] [id number] 14:48:00 Test Item Value Reference Range Interpretation Comments BUN (test code = BUN) 25 7-22 [facility] [place] 507070-11-01 14:48:00 Test Item Value Reference Range Interpretation Comments Creatinine Lvl (test code = Creatinine 8.85 0.50-1.40 Lvl) [place] [address]-11-01 14:48:00 Test Item Value Reference Range Interpretation Comments Sodium Lvl (test code = Sodium Lvl) 139 135-145 [place] 124950-11-01 14:48:00 Test Item Value Reference Range Interpretation Comments Potassium Lvl (test code = Potassium 4.0 3.5-5.1 Lvl) [place] [address]-11-01 14:48:00 Test Item Value Reference Range Interpretation Comments Chloride Lvl (test code = Chloride Lvl) 100 95-109 [place] 124950-11-01 14:48:00 Test Item Value Reference Range Interpretation Comments CO2 (test code = CO2) 30 24-32 [place] [address]-11-01 14:48:00 Test Item Value Reference Range Interpretation Comments Calcium Lvl (test code = Calcium Lvl) 7.5 8.5-10.5 [place] 124950-11-01 14:48:00 Test Item Value Reference Range Interpretation Comments AGAP (test code = AGAP) 13.0 10.0-20.0 [place] [address]-11-01 14:48:00 Test Item Value Reference Range Interpretation Comments eGFR (test code = eGFR) 6 [place] [address]-11-01 14:48:00 Test Item Value Reference Range Interpretation Comments Total Protein (test code = Total 4.2 6.4-8.4 Protein) [place] [address]-11-01 14:48:00 Test Item Value Reference Range Interpretation Comments Albumin Lvl (test code = Albumin Lvl) 1.3 3.5-5.0 [place] [address]-11-01 14:48:00 Test Item Value Reference Range Interpretation Comments ALT (test code = ALT) 14 See_Comment [Auto mated message] The system which ge nerated this result transmit emerson reference range : <=65. The reference range was not used to interpr et this result as erinn l/abnormal. [place] 124950-11-01 14:48:00 Test Item Value Reference Range Interpretation Comments AST (test code = AST) 17 See_Comment [Auto mated message] The system which ge nerated this result transmit emerson reference range : <=37. The reference range was not used to interpr et this result as erinn l/abnormal. [facility]2020-11-01 14:48:00 Test Item Value Reference Range Interpretation Comments Alk Phos (test code = Alk Phos) 92 39-136 [facility]2020-11-01 14:48:00 Test Item Value Reference Range Interpretation Comments Bili Total (test code = Bili Total) 0.5 0.2-1.3 [place] 124950-11-01 14:48:00 Test Item Value Reference Range Interpretation Comments B/C Ratio (test code = B/C Ratio) 3 1 6-25 [place] 124950-11-01 14:48:00 Test Item Value Reference Range Interpretation Comments Globulin (test code = Globulin) 2.9 2.7-4.2 [place] 124950-11-01 14:48:00 Test Item Value Reference Range Interpretation Comments A/G Ratio (test code = A/G Ratio) 0.4 1 0.7-1.6 [place] [address]-11-01 14:48:00 Test Item Value Reference Range Interpretation Comments Magnesium Lvl (test code = Magnesium 1.8 1.8-2.4 Lvl) [facility]2020-11-01 14:48:00 Test Item Value Reference Range Interpretation Comments Glucose Lvl (test code = Glucose Lvl) 70 70-99 [facility]2020-11-01 14:48:00 Test Item Value Reference Range Interpretation Comments BUN (test code = BUN) 25 7-22 [facility]2020-11-01 14:48:00 Test Item Value Reference Range Interpretation Comments Creatinine Lvl (test code = Creatinine 8.85 0.50-1.40 Lvl) [facility]2020-11-01 14:48:00 Test Item Value Reference Range Interpretation Comments Sodium Lvl (test code = Sodium Lvl) 139 135-145 [facility]2020-11-01 14:48:00 Test Item Value Reference Range Interpretation Comments Potassium Lvl (test code = Potassium 4.0 3.5-5.1 Lvl) [place] 124950-11-01 14:48:00 Test Item Value Reference Range Interpretation Comments Chloride Lvl (test code = Chloride Lvl) 100 95-109 [facility]2020-11-01 14:48:00 Test Item Value Reference Range Interpretation Comments CO2 (test code = CO2) 30 24-32 [place] 124950-11-01 14:48:00 Test Item Value Reference Range Interpretation Comments Calcium Lvl (test code = Calcium Lvl) 7.5 8.5-10.5 [facility]2020-11-01 14:48:00 Test Item Value Reference Range Interpretation Comments AGAP (test code = AGAP) 13.0 10.0-20.0 [place] 124950-11-01 14:48:00 Test Item Value Reference Range Interpretation Comments eGFR (test code = eGFR) 6 [place] 922080-11-01 10:41:00 Test Item Value Reference Range Interpretation Comments Hgb (test code = Hgb) 7.6 14.0-18.0 [place] 922080-11-01 10:41:00 Test Item Value Reference Range Interpretation Comments Hgb (test code = Hgb) 7.6 14.0-18.0 [place] 922080-11-01 10:41:00 Test Item Value Reference Range Interpretation Comments Hgb (test code = Hgb) 7.6 14.0-18.0 [place] 922080-11-01 10:41:00 Test Item Value Reference Range Interpretation Comments Hgb (test code = Hgb) 7.6 14.0-18.0 [place] 922080-11-01 02:33:00 Test Item Value Reference Range Interpretation Comments Hgb (test code = Hgb) 7.9 14.0-18.0 [place] 922080-11-01 02:33:00 Test Item Value Reference Range Interpretation Comments Hgb (test code = Hgb) 7.9 14.0-18.0 [place] 922080-11-01 02:33:00 Test Item Value Reference Range Interpretation Comments Hgb (test code = Hgb) 7.9 14.0-18.0 [place] 922080-11-01 02:33:00 Test Item Value Reference Range Interpretation Comments Hgb (test code = Hgb) 7.9 14.0-18.0 [facility]IHKQRJQHT5656[facility] 20:10:00 Test Item Value Reference Range Interpretation Comments Hct (test code = Hct) 23.0 42.0-54.0 [place] 922080-10-31 20:10:00 Test Item Value Reference Range Interpretation Comments Hct (test code = Hct) 23.0 42.0-54.0 [facility]LzzkhevFFLXFNODFL0608-71-84 20:10:00 Test Item Value Reference Range Interpretation Comments Hct (test code = Hct) 23.0 42.0-54.0 [facility] CenterVmhzrvuTWNZBLPJXM5371-42-43 20:10:00 Test Item Value Reference Range Interpretation Comments Hct (test code = Hct) 23.0 42.0-54.0 [facility]2020-10-31 19:15:00 Test Item Value Reference Range Interpretation Comments Color BF (test code = Light Yellow (08/08/20 Color BF) 2:15 PM) [facility]2020-10-31 19:15:00 Test Item Value Reference Range Interpretation Comments Clarity BF (test code = Slight Cloudy Clarity BF) (08/08/20 2:15 PM) [facility]2020-10-31 19:15:00 Test Item Value Reference Range Interpretation Comments Nucleated Cells BF (test code = 571 Nucleated Cells BF) [facility]2020-10-31 19:15:00 Test Item Value Reference Range Interpretation Comments RBC BF (test code = RBC BF) 512 [facility]2020-10-31 19:15:00 Test Item Value Reference Range Interpretation Comments Neutrophils BF (test code = Neutrophils 18 BF) [facility]2020-10-31 19:15:00 Test Item Value Reference Range Interpretation Comments Lymph BF (test code = Lymph BF) 10 [facility]2020-10-31 19:15:00 Test Item Value Reference Range Interpretation Comments Macrophage BF (test code = Macrophage 44 BF) [facility]2020-10-31 19:15:00 Test Item Value Reference Range Interpretation Comments Eos BF (test code = Eos BF) 26 [facility]2020-10-31 19:15:00 Test Item Value Reference Range Interpretation Comments Meso BF (test code = Meso BF) 2 [facility]2020-10-31 19:15:00 Test Item Value Reference Range Interpretation Comments CellCnt BF Type (test Abdomn (08/08/20 2:15 code = CellCnt BF Type) PM) [facility] Kbzxub2375-35-58 19:15:00 Test Item Value Reference Range Interpretation Comments Gram Stain Report Few WBC's No Organisms (test code = Gram Seen Stain Report) [facility] Aspirate/Body Fluid/Svkuti9887-82-24 19:15:00 Test Item Value Reference Range Interpretation Comments Culture: Aspirate/Body Fluid/Tissue No Growth (test code = Culture: Aspirate/Body Fluid/Tissue) [facility]2020-10-31 19:15:00 Test Item Value Reference Range Interpretation Comments Color BF (test code = Light Yellow (08/08/20 Color BF) 2:15 PM) [facility]2020-10-31 19:15:00 Test Item Value Reference Range Interpretation Comments Clarity BF (test code = Slight Cloudy Clarity BF) (08/08/20 2:15 PM) [facility]2020-10-31 19:15:00 Test Item Value Reference Range Interpretation Comments Nucleated Cells BF (test code = 571 Nucleated Cells BF) [facility]2020-10-31 19:15:00 Test Item Value Reference Range Interpretation Comments RBC BF (test code = RBC BF) 512 [facility]2020-10-31 19:15:00 Test Item Value Reference Range Interpretation Comments Neutrophils BF (test code = Neutrophils 18 BF) [facility]2020-10-31 19:15:00 Test Item Value Reference Range Interpretation Comments Lymph BF (test code = Lymph BF) 10 [facility]2020-10-31 19:15:00 Test Item Value Reference Range Interpretation Comments Macrophage BF (test code = Macrophage 44 BF) [facility]2020-10-31 19:15:00 Test Item Value Reference Range Interpretation Comments Eos BF (test code = Eos BF) 26 [facility]2020-10-31 19:15:00 Test Item Value Reference Range Interpretation Comments Meso BF (test code = Meso BF) 2 [facility]2020-10-31 19:15:00 Test Item Value Reference Range Interpretation Comments CellCnt BF Type (test Abdomn (08/08/20 2:15 code = CellCnt BF Type) PM) [facility] Rrrkhq3626-38-79 19:15:00 Test Item Value Reference Range Interpretation Comments Gram Stain Report Few WBC's No Organisms (test code = Gram Seen Stain Report) [facility] Aspirate/Body Fluid/Tuikhg4952-01-93 19:15:00 Test Item Value Reference Range Interpretation Comments Culture: Aspirate/Body Fluid/Tissue No Growth (test code = Culture: Aspirate/Body Fluid/Tissue) [facility]2020-10-31 19:15:00 Test Item Value Reference Range Interpretation Comments Color BF (test code = Light Yellow (08/08/20 Color BF) 2:15 PM) [facility]2020-10-31 19:15:00 Test Item Value Reference Range Interpretation Comments Clarity BF (test code = Slight Cloudy Clarity BF) (08/08/20 2:15 PM) [facility]2020-10-31 19:15:00 Test Item Value Reference Range Interpretation Comments Nucleated Cells BF (test code = 571 Nucleated Cells BF) [facility]2020-10-31 19:15:00 Test Item Value Reference Range Interpretation Comments RBC BF (test code = RBC BF) 512 [facility]2020-10-31 19:15:00 Test Item Value Reference Range Interpretation Comments Neutrophils BF (test code = Neutrophils 18 BF) [facility]2020-10-31 19:15:00 Test Item Value Reference Range Interpretation Comments Lymph BF (test code = Lymph BF) 10 [facility]2020-10-31 19:15:00 Test Item Value Reference Range Interpretation Comments Macrophage BF (test code = Macrophage 44 BF) [facility]2020-10-31 19:15:00 Test Item Value Reference Range Interpretation Comments Eos BF (test code = Eos BF) 26 [facility]2020-10-31 19:15:00 Test Item Value Reference Range Interpretation Comments Meso BF (test code = Meso BF) 2 [facility]2020-10-31 19:15:00 Test Item Value Reference Range Interpretation Comments CellCnt BF Type (test Abdomn (08/08/20 2:15 code = CellCnt BF Type) PM) [facility] Pgfqtb5521-27-55 19:15:00 Test Item Value Reference Range Interpretation Comments Gram Stain Report Few WBC's No Organisms (test code = Gram Seen Stain Report) [facility] Aspirate/Body Fluid/Ihbykh1857-45-33 19:15:00 Test Item Value Reference Range Interpretation Comments Culture: Aspirate/Body Fluid/Tissue No Growth (test code = Culture: Aspirate/Body Fluid/Tissue) [facility]2020-10-31 19:15:00 Test Item Value Reference Range Interpretation Comments Color BF (test code = Light Yellow (08/08/20 Color BF) 2:15 PM) [facility]2020-10-31 19:15:00 Test Item Value Reference Range Interpretation Comments Clarity BF (test code = Slight Cloudy Clarity BF) (08/08/20 2:15 PM) [facility]2020-10-31 19:15:00 Test Item Value Reference Range Interpretation Comments Nucleated Cells BF (test code = 571 Nucleated Cells BF) [facility]2020-10-31 19:15:00 Test Item Value Reference Range Interpretation Comments RBC BF (test code = RBC BF) 512 [facility]2020-10-31 19:15:00 Test Item Value Reference Range Interpretation Comments Neutrophils BF (test code = Neutrophils 18 BF) [facility]2020-10-31 19:15:00 Test Item Value Reference Range Interpretation Comments Lymph BF (test code = Lymph BF) 10 [facility]2020-10-31 19:15:00 Test Item Value Reference Range Interpretation Comments Macrophage BF (test code = Macrophage 44 BF) [facility]2020-10-31 19:15:00 Test Item Value Reference Range Interpretation Comments Eos BF (test code = Eos BF) 26 [facility]2020-10-31 19:15:00 Test Item Value Reference Range Interpretation Comments Meso BF (test code = Meso BF) 2 [facility]2020-10-31 19:15:00 Test Item Value Reference Range Interpretation Comments CellCnt BF Type (test Abdomn (08/08/20 2:15 code = CellCnt BF Type) PM) [facility] [id number] 19:15:00 Test Item Value Reference Range Interpretation Comments Gram Stain Report Few WBC's No Organisms (test code = Gram Seen Stain Report) [facility] Aspirate/Body Fluid/Pfjjhq4082-76-47 19:15:00 Test Item Value Reference Range Interpretation Comments Culture: Aspirate/Body Fluid/Tissue No Growth (test code = Culture: Aspirate/Body Fluid/Tissue) [facility] [id number] 15:28:09 Test Item Value Reference Range Interpretation Comments RBC product (test code Product available = RBC product) 4(08/08/20 10:28 AM) [facility] [id number] 15:28:09 Test Item Value Reference Range Interpretation Comments RBC product (test code Product available = RBC product) 4(08/08/20 10:28 AM) [facility] [id number] 15:28:09 Test Item Value Reference Range Interpretation Comments RBC product (test code Product available = RBC product) 4(08/08/20 10:28 AM) [facility] [id number] 15:28:09 Test Item Value Reference Range Interpretation Comments RBC product (test code Product available = RBC product) 4(08/08/20 10:28 AM) [facility] [id number] 14:41:00 Test Item Value Reference Range Interpretation Comments ABO/Rh (test code = ABO/Rh) O POS [facility] [id number] 14:41:00 Test Item Value Reference Range Interpretation Comments Antibody Scrn (test Negative (08/08/20 code = Antibody Scrn) 9:41 AM) [facility] CenterViqpnohUXLQHNNZLW4552-73-18 14:41:00 Test Item Value Reference Range Interpretation Comments Bands (test code = 1.0 See_Comment [Automat ed message] The Bands) system which ge nerated this result transmit emerson reference range : <=11.0. The reference r yared was not used to interpr et this result as erinn l/abnormal. [facility] CenterPfxcozjDEVKEVOMFT0902-93-90 14:41:00 Test Item Value Reference Range Interpretation Comments Atypical Lymphs (test code = Atypical 9.0 Lymphs) [facility] CenterEzszesnENCWJMZVQE2912-40-03 14:41:00 Test Item Value Reference Range Interpretation Comments RBC Morph (test code = See Note (08/08/20 RBC Morph) 9:41 AM) [facility] CenterTdkybqoEMAQJUOCYB3378-36-63 14:41:00 Test Item Value Reference Range Interpretation Comments Plt Morph (test code = Normal (08/08/20 9:41 Plt Morph) AM) [facility] CenterAqfppowSNLKOAXFOW7459-90-16 14:41:00 Test Item Value Reference Range Interpretation Comments Anisocyte (test code = 1+ *ABN*(08/08/20 Anisocyte) 9:41 AM) [facility] CenterCczszilEWFIGHXMAB8982-97-74 14:41:00 Test Item Value Reference Range Interpretation Comments Macrocyte (test code = 1+ *ABN*(08/08/20 Macrocyte) 9:41 AM) [facility] CenterCvyrxtjOJHTTIRXYL8756-66-53 14:41:00 Test Item Value Reference Range Interpretation Comments Hypochrom (test code = 1+ (08/08/20 9:41 Hypochrom) AM) [facility] CenterZiwodfpQLVDBHFZKN6303-78-14 14:41:00 Test Item Value Reference Range Interpretation Comments Polychrom (test code = Moderate Polychrom) *ABN*(08/08/20 9:41 AM) [facility] CenterYmbeziwBACIDWEFHO2158-76-40 14:41:00 Test Item Value Reference Range Interpretation Comments WBC (test code = WBC) 6.0 3.7-10.4 [facility] CenterDpthjzcGLSGRQOZYS4099-93-66 14:41:00 Test Item Value Reference Range Interpretation Comments RBC (test code = RBC) 2.32 4.70-6.10 [facility] CenterRioqnhzFNMADLZUJC8933-35-02 14:41:00 Test Item Value Reference Range Interpretation Comments Hct (test code = Hct) 19.8 42.0-54.0 [facility] CenterGuiurxjWEJJZPLFDU5918-74-87 14:41:00 Test Item Value Reference Range Interpretation Comments MCV (test code = MCV) 85.6 80.0-94.0 [facility] CenterXkndmmhSAIFUJGNRS5586-24-41 14:41:00 Test Item Value Reference Range Interpretation Comments MCH (test code = MCH) 29.0 pg 27.0-31.0 [facility] CenterLksthmoRFSIPGGQBW1107-63-09 14:41:00 Test Item Value Reference Range Interpretation Comments MCHC (test code = MCHC) 33.8 32.0-36.0 [place] 922080-10-31 14:41:00 Test Item Value Reference Range Interpretation Comments RDW (test code = RDW) 13.9 11.5-14.5 [facility] CenterUsteqgxZZIYTALMME9928-57-76 14:41:00 Test Item Value Reference Range Interpretation Comments Platelet (test code = Platelet) 176 133-450 [place] 922080-10-31 14:41:00 Test Item Value Reference Range Interpretation Comments MPV (test code = MPV) 6.8 7.4-10.4 [place] 922080-10-31 14:41:00 Test Item Value Reference Range Interpretation Comments Neutrophils # (test code = Neutrophils 4.1 1.5-8.1 #) [facility] CenterGeorejcHHSJZGYFYU1550-68-04 14:41:00 Test Item Value Reference Range Interpretation Comments Lymphocytes # (test code = Lymphocytes 1.4 1.0-5.5 #) [facility] CenterHkafarvPHPQYUFZLP1410-90-26 14:41:00 Test Item Value Reference Range Interpretation Comments Monocytes # (test code 0.1 See_Comment [Aut omated message] The = Monocytes #) system which generated this result tra nsmitted reference range : <=0.8. The reference r yared was not used to int erpret this result as normal/abnormal . [facility] CenterBbnjabrQVXFDCFZSY5633-62-08 14:41:00 Test Item Value Reference Range Interpretation Comments Eosinophils # (test code 0.4 See_Comment [A utomated message] The = Eosinophils #) system whic h generated this result tra nsmitted reference range : <=0.5. The reference r yared was not used to int erpret this result as normal/abnormal . [facility] CenterPlavlyuDENKOWTGVW3713-56-38 14:41:00 Test Item Value Reference Range Interpretation Comments Segs (test code = Segs) 68.0 45.0-75.0 [place] 922080-10-31 14:41:00 Test Item Value Reference Range Interpretation Comments Lymphocytes (test code = Lymphocytes) 14.0 20.0-40.0 [place] 922080-10-31 14:41:00 Test Item Value Reference Range Interpretation Comments Monocytes (test code = Monocytes) 2.0 2.0-12.0 [place] 922080-10-31 14:41:00 Test Item Value Reference Range Interpretation Comments Eosinophils (test code = 6.0 See_Comment [A utomated message] The Eosinophils) system which ge nerated this result tra nsmitted reference range : <=4.0. The reference r yared was not used to int erpret this result as normal/abnormal . [facility] [id number] 14:41:00 Test Item Value Reference Range Interpretation Comments ABO/Rh (test code = ABO/Rh) O POS [facility] [id number] 14:41:00 Test Item Value Reference Range Interpretation Comments Antibody Scrn (test Negative (08/08/20 code = Antibody Scrn) 9:41 AM) [facility] CenterWoowgblDFKPGUQWDT8962-21-70 14:41:00 Test Item Value Reference Range Interpretation Comments Bands (test code = 1.0 See_Comment [Automat ed message] The Bands) system which ge nerated this result transmit emerson reference range : <=11.0. The reference r yared was not used to interpr et this result as erinn l/abnormal. [facility] CenterIuoxlrsKHZVMMCPXA8912-04-82 14:41:00 Test Item Value Reference Range Interpretation Comments Atypical Lymphs (test code = Atypical 9.0 Lymphs) [facility] CenterIjjploeIWHFWPPYKI6653-13-56 14:41:00 Test Item Value Reference Range Interpretation Comments RBC Morph (test code = See Note (08/08/20 RBC Morph) 9:41 AM) [facility] CenterCnmeupwIHYCTYKXBT7416-48-31 14:41:00 Test Item Value Reference Range Interpretation Comments Plt Morph (test code = Normal (08/08/20 9:41 Plt Morph) AM) [facility] CenterJeybfivZZSWUTDDSJ9287-46-65 14:41:00 Test Item Value Reference Range Interpretation Comments Anisocyte (test code = 1+ *ABN*(08/08/20 Anisocyte) 9:41 AM) [facility] CenterWapwndzMZFEERPPBN8925-32-43 14:41:00 Test Item Value Reference Range Interpretation Comments Macrocyte (test code = 1+ *ABN*(08/08/20 Macrocyte) 9:41 AM) [facility] CenterPxobodxCZFOSTSJSE4246-91-06 14:41:00 Test Item Value Reference Range Interpretation Comments Hypochrom (test code = 1+ (08/08/20 9:41 Hypochrom) AM) [facility] CenterJbonjfvOLNBEFLKQZ7786-76-29 14:41:00 Test Item Value Reference Range Interpretation Comments Polychrom (test code = Moderate Polychrom) *ABN*(08/08/20 9:41 AM) [facility] CenterNbyggplSFTXGYXKST6573-26-62 14:41:00 Test Item Value Reference Range Interpretation Comments WBC (test code = WBC) 6.0 3.7-10.4 [facility] CenterGwwvxzaIMIVZMEEUZ5062-26-95 14:41:00 Test Item Value Reference Range Interpretation Comments RBC (test code = RBC) 2.32 4.70-6.10 [facility] CenterMefboefODSVJHMAUF1005-79-13 14:41:00 Test Item Value Reference Range Interpretation Comments Hct (test code = Hct) 19.8 42.0-54.0 [facility] CenterUarkiapNJDKKFYYPO2136-78-82 14:41:00 Test Item Value Reference Range Interpretation Comments MCV (test code = MCV) 85.6 80.0-94.0 [place] 922080-10-31 14:41:00 Test Item Value Reference Range Interpretation Comments MCH (test code = MCH) 29.0 pg 27.0-31.0 [facility] CenterWcgztivFSXQNMFDVQ6112-96-97 14:41:00 Test Item Value Reference Range Interpretation Comments MCHC (test code = MCHC) 33.8 32.0-36.0 [facility] CenterMolnfpkPBTPNWVIGX3276-57-22 14:41:00 Test Item Value Reference Range Interpretation Comments RDW (test code = RDW) 13.9 11.5-14.5 [facility] CenterLbyvpyjKHRZDNGFIO3586-11-59 14:41:00 Test Item Value Reference Range Interpretation Comments Platelet (test code = Platelet) 176 133-450 [facility] CenterOnsjnfkCYYDOCFMPN1248-57-55 14:41:00 Test Item Value Reference Range Interpretation Comments MPV (test code = MPV) 6.8 7.4-10.4 [place] 922080-10-31 14:41:00 Test Item Value Reference Range Interpretation Comments Neutrophils # (test code = Neutrophils 4.1 1.5-8.1 #) [facility] CenterXyvqngbMYPDBAFADD6989-33-76 14:41:00 Test Item Value Reference Range Interpretation Comments Lymphocytes # (test code = Lymphocytes 1.4 1.0-5.5 #) [facility] CenterEegjwgxQXUARTXBIX9564-48-12 14:41:00 Test Item Value Reference Range Interpretation Comments Monocytes # (test code 0.1 See_Comment [Aut omated message] The = Monocytes #) system which generated this result tra nsmitted reference range : <=0.8. The reference r yared was not used to int erpret this result as normal/abnormal . [facility] HospitalKpyhtfxMIEAAOWPRI0980-94-93 14:41:00 Test Item Value Reference Range Interpretation Comments Eosinophils # (test code 0.4 See_Comment [A utomated message] The = Eosinophils #) system whic h generated this result tra nsmitted reference range : <=0.5. The reference r yared was not used to int erpret this result as normal/abnormal . [facility]WpmhplbYVXTEQGVZY3538-02-86 14:41:00 Test Item Value Reference Range Interpretation Comments Segs (test code = Segs) 68.0 45.0-75.0 [facility] CenterDswqedtKELJIXCHVI1602-23-27 14:41:00 Test Item Value Reference Range Interpretation Comments Lymphocytes (test code = Lymphocytes) 14.0 20.0-40.0 [facility] CenterPdtignpCIRHTUDZJM8141-78-86 14:41:00 Test Item Value Reference Range Interpretation Comments Monocytes (test code = Monocytes) 2.0 2.0-12.0 [facility] CenterVxcqawpSHDWWCRVIP6017-19-07 14:41:00 Test Item Value Reference Range Interpretation Comments Eosinophils (test code = 6.0 See_Comment [A utomated message] The Eosinophils) system which ge nerated this result tra nsmitted reference range : <=4.0. The reference r yared was not used to int erpret this result as normal/abnormal . [facility] [employer] URNOPIR5336-30-28 14:41:00 Test Item Value Reference Range Interpretation Comments ABO/Rh (test code = ABO/Rh) O POS [facility] [employer] VCIAFVV3420-19-97 14:41:00 Test Item Value Reference Range Interpretation Comments Antibody Scrn (test Negative (08/08/20 code = Antibody Scrn) 9:41 AM) [facility] HospitalRdrgzvtMJGCTFMGOL9619-54-42 14:41:00 Test Item Value Reference Range Interpretation Comments Bands (test code = 1.0 See_Comment [Automat ed message] The Bands) system which ge nerated this result transmit emerson reference range : <=11.0. The reference r yared was not used to interpr et this result as erinn l/abnormal. [facility] CenterUtxncyaVMWKCMBXDU8115-10-13 14:41:00 Test Item Value Reference Range Interpretation Comments Atypical Lymphs (test code = Atypical 9.0 Lymphs) [place] 922080-10-31 14:41:00 Test Item Value Reference Range Interpretation Comments RBC Morph (test code = See Note (08/08/20 RBC Morph) 9:41 AM) [facility] CenterCsnkzkuAVGNPDGTDL0886-56-97 14:41:00 Test Item Value Reference Range Interpretation Comments Plt Morph (test code = Normal (08/08/20 9:41 Plt Morph) AM) [place] 922080-10-31 14:41:00 Test Item Value Reference Range Interpretation Comments Anisocyte (test code = 1+ *ABN*(08/08/20 Anisocyte) 9:41 AM) [place] 922080-10-31 14:41:00 Test Item Value Reference Range Interpretation Comments Macrocyte (test code = 1+ *ABN*(08/08/20 Macrocyte) 9:41 AM) [facility] CenterEtswypzTCCLFQEMLU4578-59-71 14:41:00 Test Item Value Reference Range Interpretation Comments Hypochrom (test code = 1+ (08/08/20 9:41 Hypochrom) AM) [place] 922080-10-31 14:41:00 Test Item Value Reference Range Interpretation Comments Polychrom (test code = Moderate Polychrom) *ABN*(08/08/20 9:41 AM) [place] 922080-10-31 14:41:00 Test Item Value Reference Range Interpretation Comments WBC (test code = WBC) 6.0 3.7-10.4 [place] 922080-10-31 14:41:00 Test Item Value Reference Range Interpretation Comments RBC (test code = RBC) 2.32 4.70-6.10 [place] 922080-10-31 14:41:00 Test Item Value Reference Range Interpretation Comments Hct (test code = Hct) 19.8 42.0-54.0 [place] 922080-10-31 14:41:00 Test Item Value Reference Range Interpretation Comments MCV (test code = MCV) 85.6 80.0-94.0 [place] 922080-10-31 14:41:00 Test Item Value Reference Range Interpretation Comments MCH (test code = MCH) 29.0 pg 27.0-31.0 [facility]KrprkfeKZCZUTYIAG1418-50-99 14:41:00 Test Item Value Reference Range Interpretation Comments MCHC (test code = MCHC) 33.8 32.0-36.0 [facility] CenterCaoavpaFTJTYLONQP7280-82-05 14:41:00 Test Item Value Reference Range Interpretation Comments RDW (test code = RDW) 13.9 11.5-14.5 [place] 922080-10-31 14:41:00 Test Item Value Reference Range Interpretation Comments Platelet (test code = Platelet) 176 133-450 [facility] CenterMcdbtfuVCPAQECJNZ0425-00-86 14:41:00 Test Item Value Reference Range Interpretation Comments MPV (test code = MPV) 6.8 7.4-10.4 [place] 922080-10-31 14:41:00 Test Item Value Reference Range Interpretation Comments Neutrophils # (test code = Neutrophils 4.1 1.5-8.1 #) [facility] CenterTvjupxgFUGXRLQVZV2091-46-65 14:41:00 Test Item Value Reference Range Interpretation Comments Lymphocytes # (test code = Lymphocytes 1.4 1.0-5.5 #) [facility] CenterGqavwceMYODTCFSNI2203-33-67 14:41:00 Test Item Value Reference Range Interpretation Comments Monocytes # (test code 0.1 See_Comment [Aut omated message] The = Monocytes #) system which generated this result tra nsmitted reference range : <=0.8. The reference r yared was not used to int erpret this result as normal/abnormal . [facility] CenterPaqyrpyIYIBRDVYGQ5999-95-74 14:41:00 Test Item Value Reference Range Interpretation Comments Eosinophils # (test code 0.4 See_Comment [A utomated message] The = Eosinophils #) system whic h generated this result tra nsmitted reference range : <=0.5. The reference r yared was not used to int erpret this result as normal/abnormal . [facility] CenterGnnoveiUPRRVOFZFH4208-79-12 14:41:00 Test Item Value Reference Range Interpretation Comments Segs (test code = Segs) 68.0 45.0-75.0 [place] 922080-10-31 14:41:00 Test Item Value Reference Range Interpretation Comments Lymphocytes (test code = Lymphocytes) 14.0 20.0-40.0 [facility] CenterWcrcssiPUEGXEVIJH2175-17-86 14:41:00 Test Item Value Reference Range Interpretation Comments Monocytes (test code = Monocytes) 2.0 2.0-12.0 [facility] CenterUokcfiuXUHWUZXOBN6829-69-58 14:41:00 Test Item Value Reference Range Interpretation Comments Eosinophils (test code = 6.0 See_Comment [A utomated message] The Eosinophils) system which ge nerated this result tra nsmitted reference range : <=4.0. The reference r yared was not used to int erpret this result as normal/abnormal . [facility]Avtodoria PPNETLH9590-87-77 14:41:00 Test Item Value Reference Range Interpretation Comments ABO/Rh (test code = ABO/Rh) O POS [facility] CenterFrankly Chat [facility] [id number] 14:41:00 Test Item Value Reference Range Interpretation Comments Antibody Scrn (test Negative (08/08/20 code = Antibody Scrn) 9:41 AM) [facility] CenterXcnyzunBVIHHSCOSL4720-83-65 14:41:00 Test Item Value Reference Range Interpretation Comments Bands (test code = 1.0 See_Comment [Automat ed message] The Bands) system which ge nerated this result transmit emerson reference range : <=11.0. The reference r yared was not used to interpr et this result as erinn l/abnormal. [facility] CenterCttstyvHUGKFZZVLS1472-35-21 14:41:00 Test Item Value Reference Range Interpretation Comments Atypical Lymphs (test code = Atypical 9.0 Lymphs) [facility] CenterKxdftosWKTJOAMPNS9365-12-03 14:41:00 Test Item Value Reference Range Interpretation Comments RBC Morph (test code = See Note (08/08/20 RBC Morph) 9:41 AM) [facility] CenterYhirtivQPLRCERMPC3346-39-63 14:41:00 Test Item Value Reference Range Interpretation Comments Plt Morph (test code = Normal (08/08/20 9:41 Plt Morph) AM) [facility] CenterRahdxqfLSOUUTWLGM5234-09-99 14:41:00 Test Item Value Reference Range Interpretation Comments Anisocyte (test code = 1+ *ABN*(08/08/20 Anisocyte) 9:41 AM) [facility] CenterTddpkgsEEOBLQKZVF2133-67-53 14:41:00 Test Item Value Reference Range Interpretation Comments Macrocyte (test code = 1+ *ABN*(08/08/20 Macrocyte) 9:41 AM) [facility] CenterQctdorsLLJTKDOINW7985-99-49 14:41:00 Test Item Value Reference Range Interpretation Comments Hypochrom (test code = 1+ (08/08/20 9:41 Hypochrom) AM) [facility] CenterTwogjauZDCQAQLVOF4761-73-07 14:41:00 Test Item Value Reference Range Interpretation Comments Polychrom (test code = Moderate Polychrom) *ABN*(08/08/20 9:41 AM) [facility] CenterYydjalzACMTKBLEEI4637-13-39 14:41:00 Test Item Value Reference Range Interpretation Comments WBC (test code = WBC) 6.0 3.7-10.4 [facility] CenterJotxaymBQBTQVSUVW1572-61-50 14:41:00 Test Item Value Reference Range Interpretation Comments RBC (test code = RBC) 2.32 4.70-6.10 [facility] CenterPbncdhwHJQKAATGCF5639-47-14 14:41:00 Test Item Value Reference Range Interpretation Comments Hct (test code = Hct) 19.8 42.0-54.0 [facility] CenterHmmgxsgSCKOGXWWRX6209-60-90 14:41:00 Test Item Value Reference Range Interpretation Comments MCV (test code = MCV) 85.6 80.0-94.0 [facility] CenterPknqizkMCSXYWXFHW8067-45-50 14:41:00 Test Item Value Reference Range Interpretation Comments MCH (test code = MCH) 29.0 pg 27.0-31.0 [facility] CenterDoslufbCJWNNYNRCL2466-53-82 14:41:00 Test Item Value Reference Range Interpretation Comments MCHC (test code = MCHC) 33.8 32.0-36.0 [place] 922080-10-31 14:41:00 Test Item Value Reference Range Interpretation Comments RDW (test code = RDW) 13.9 11.5-14.5 [facility] CenterYjcqhhbKCSQQQYSIL4809-93-79 14:41:00 Test Item Value Reference Range Interpretation Comments Platelet (test code = Platelet) 176 133-450 [facility] CenterIbgjatqAUADKIUEPG0383-95-86 14:41:00 Test Item Value Reference Range Interpretation Comments MPV (test code = MPV) 6.8 7.4-10.4 [place] 922080-10-31 14:41:00 Test Item Value Reference Range Interpretation Comments Neutrophils # (test code = Neutrophils 4.1 1.5-8.1 #) [facility] CenterSisnazpNTLPSUWAVV1338-30-37 14:41:00 Test Item Value Reference Range Interpretation Comments Lymphocytes # (test code = Lymphocytes 1.4 1.0-5.5 #) [facility] CenterDntjudeCRQKDINVPT8116-20-81 14:41:00 Test Item Value Reference Range Interpretation Comments Monocytes # (test code 0.1 See_Comment [Aut omated message] The = Monocytes #) system which generated this result tra nsmitted reference range : <=0.8. The reference r yared was not used to int erpret this result as normal/abnormal . [facility] CenterLzsoxwnGRHEFIKPXC6639-36-87 14:41:00 Test Item Value Reference Range Interpretation Comments Eosinophils # (test code 0.4 See_Comment [A utomated message] The = Eosinophils #) system whic h generated this result tra nsmitted reference range : <=0.5. The reference r yared was not used to int erpret this result as normal/abnormal . [facility] CenterNfsuzrnMCDPWBYFPS2364-56-51 14:41:00 Test Item Value Reference Range Interpretation Comments Segs (test code = Segs) 68.0 45.0-75.0 [facility] CenterJfgxtpoSFNAUEUZAH5151-27-92 14:41:00 Test Item Value Reference Range Interpretation Comments Lymphocytes (test code = Lymphocytes) 14.0 20.0-40.0 [facility] CenterFfiojjvUXEEJPSBWK2601-55-64 14:41:00 Test Item Value Reference Range Interpretation Comments Monocytes (test code = Monocytes) 2.0 2.0-12.0 [place] 922080-10-31 14:41:00 Test Item Value Reference Range Interpretation Comments Eosinophils (test code = 6.0 See_Comment [A utomated message] The Eosinophils) system which ge nerated this result tra nsmitted reference range : <=4.0. The reference r yared was not used to int erpret this result as normal/abnormal . [facility]YourListen.[facility] [id number] 08:42:00 Test Item Value Reference Range Interpretation Comments Phosphorus (test code = Phosphorus) 4.4 2.5-4.5 [place] 124950-10-31 08:42:00 Test Item Value Reference Range Interpretation Comments Glucose Lvl (test code = Glucose Lvl) 80 70-99 [place] 124950-10-31 08:42:00 Test Item Value Reference Range Interpretation Comments BUN (test code = BUN) 34 7-22 [place] 124950-10-31 08:42:00 Test Item Value Reference Range Interpretation Comments Creatinine Lvl (test code = Creatinine 10.90 0.50-1.40 Lvl) [place] 124950-10-31 08:42:00 Test Item Value Reference Range Interpretation Comments Sodium Lvl (test code = Sodium Lvl) 138 135-145 [place] 124950-10-31 08:42:00 Test Item Value Reference Range Interpretation Comments Potassium Lvl (test code = Potassium 3.6 3.5-5.1 Lvl) [place] 124950-10-31 08:42:00 Test Item Value Reference Range Interpretation Comments Chloride Lvl (test code = Chloride Lvl) 99 95-109 [place] 124950-10-31 08:42:00 Test Item Value Reference Range Interpretation Comments CO2 (test code = CO2) 33 24-32 [place] 124950-10-31 08:42:00 Test Item Value Reference Range Interpretation Comments Calcium Lvl (test code = Calcium Lvl) 8.1 8.5-10.5 [place] 124950-10-31 08:42:00 Test Item Value Reference Range Interpretation Comments AGAP (test code = AGAP) 9.6 10.0-20.0 [place] 124950-10-31 08:42:00 Test Item Value Reference Range Interpretation Comments eGFR (test code = eGFR) 5 [place] 922080-10-31 08:42:00 Test Item Value Reference Range Interpretation Comments Basophils (test code = 0.6 See_Comment [Aut omated message] The Basophils) system which ge nerated this result tra nsmitted reference range : <=1.0. The reference r yared was not used to int erpret this result as normal/abnormal . [place] 922080-10-31 08:42:00 Test Item Value Reference Range Interpretation Comments WBC (test code = WBC) 6.7 3.7-10.4 [place] 922080-10-31 08:42:00 Test Item Value Reference Range Interpretation Comments RBC (test code = RBC) 2.53 4.70-6.10 [place] 922080-10-31 08:42:00 Test Item Value Reference Range Interpretation Comments MCV (test code = MCV) 84.8 80.0-94.0 [place] 922080-10-31 08:42:00 Test Item Value Reference Range Interpretation Comments MCH (test code = MCH) 28.5 pg 27.0-31.0 [place] 922080-10-31 08:42:00 Test Item Value Reference Range Interpretation Comments MCHC (test code = MCHC) 33.6 32.0-36.0 [facility] CenterHhevukzOCEGYAUQKP5292-37-75 08:42:00 Test Item Value Reference Range Interpretation Comments RDW (test code = RDW) 14.4 11.5-14.5 [place] 922080-10-31 08:42:00 Test Item Value Reference Range Interpretation Comments Platelet (test code = Platelet) 182 133-450 [facility] CenterItlvwckISEDKURTKA5354-08-68 08:42:00 Test Item Value Reference Range Interpretation Comments MPV (test code = MPV) 7.0 7.4-10.4 [facility] CenterTojrhzbDXHJNBHCZM7372-56-12 08:42:00 Test Item Value Reference Range Interpretation Comments Segs (test code = Segs) 71.1 45.0-75.0 [facility] CenterOdtjldzSENWDPCSKK3784-97-68 08:42:00 Test Item Value Reference Range Interpretation Comments Lymphocytes (test code = Lymphocytes) 16.3 20.0-40.0 [place] 922080-10-31 08:42:00 Test Item Value Reference Range Interpretation Comments Monocytes (test code = Monocytes) 8.0 2.0-12.0 [place] [address]-10-31 08:42:00 Test Item Value Reference Range Interpretation Comments Eosinophils (test code = 4.0 See_Comment [A utomated message] The Eosinophils) system which ge nerated this result tra nsmitted reference range : <=4.0. The reference r yared was not used to int erpret this result as normal/abnormal . [place] 922080-10-31 08:42:00 Test Item Value Reference Range Interpretation Comments Neutrophils # (test code = Neutrophils 4.7 1.5-8.1 #) [place] 922080-10-31 08:42:00 Test Item Value Reference Range Interpretation Comments Lymphocytes # (test code = Lymphocytes 1.1 1.0-5.5 #) [place] [address]-10-31 08:42:00 Test Item Value Reference Range Interpretation Comments Monocytes # (test code 0.5 See_Comment [Aut omated message] The = Monocytes #) system which generated this result tra nsmitted reference range : <=0.8. The reference r yared was not used to int erpret this result as normal/abnormal . [place] 922080-10-31 08:42:00 Test Item Value Reference Range Interpretation Comments Eosinophils # (test code 0.3 See_Comment [A utomated message] The = Eosinophils #) system whic h generated this result tra nsmitted reference range : <=0.5. The reference r yared was not used to int erpret this result as normal/abnormal . [place] 124950-10-31 08:42:00 Test Item Value Reference Range Interpretation Comments Phosphorus (test code = Phosphorus) 4.4 2.5-4.5 [place] [address]-10-31 08:42:00 Test Item Value Reference Range Interpretation Comments Glucose Lvl (test code = Glucose Lvl) 80 70-99 [place] [address]-10-31 08:42:00 Test Item Value Reference Range Interpretation Comments BUN (test code = BUN) 34 7-22 [place] [address]-10-31 08:42:00 Test Item Value Reference Range Interpretation Comments Creatinine Lvl (test code = Creatinine 10.90 0.50-1.40 Lvl) [place] [address]-10-31 08:42:00 Test Item Value Reference Range Interpretation Comments Sodium Lvl (test code = Sodium Lvl) 138 135-145 [place] [address]-10-31 08:42:00 Test Item Value Reference Range Interpretation Comments Potassium Lvl (test code = Potassium 3.6 3.5-5.1 Lvl) [place] [address]-10-31 08:42:00 Test Item Value Reference Range Interpretation Comments Chloride Lvl (test code = Chloride Lvl) 99 95-109 [place] 124950-10-31 08:42:00 Test Item Value Reference Range Interpretation Comments CO2 (test code = CO2) 33 24-32 [place] 124950-10-31 08:42:00 Test Item Value Reference Range Interpretation Comments Calcium Lvl (test code = Calcium Lvl) 8.1 8.5-10.5 [place] 124950-10-31 08:42:00 Test Item Value Reference Range Interpretation Comments AGAP (test code = AGAP) 9.6 10.0-20.0 [facility]2020-10-31 08:42:00 Test Item Value Reference Range Interpretation Comments eGFR (test code = eGFR) 5 [facility] CenterEbiuwugCJPSOLXFAI4654-88-19 08:42:00 Test Item Value Reference Range Interpretation Comments Basophils (test code = 0.6 See_Comment [Aut omated message] The Basophils) system which ge nerated this result tra nsmitted reference range : <=1.0. The reference r yared was not used to int erpret this result as normal/abnormal . [place] 922080-10-31 08:42:00 Test Item Value Reference Range Interpretation Comments WBC (test code = WBC) 6.7 3.7-10.4 [place] 922080-10-31 08:42:00 Test Item Value Reference Range Interpretation Comments RBC (test code = RBC) 2.53 4.70-6.10 [place] 922080-10-31 08:42:00 Test Item Value Reference Range Interpretation Comments MCV (test code = MCV) 84.8 80.0-94.0 [place] 922080-10-31 08:42:00 Test Item Value Reference Range Interpretation Comments MCH (test code = MCH) 28.5 pg 27.0-31.0 [place] 922080-10-31 08:42:00 Test Item Value Reference Range Interpretation Comments MCHC (test code = MCHC) 33.6 32.0-36.0 [place] 922080-10-31 08:42:00 Test Item Value Reference Range Interpretation Comments RDW (test code = RDW) 14.4 11.5-14.5 [place] [address]-10-31 08:42:00 Test Item Value Reference Range Interpretation Comments Platelet (test code = Platelet) 182 133-450 [place] 922080-10-31 08:42:00 Test Item Value Reference Range Interpretation Comments MPV (test code = MPV) 7.0 7.4-10.4 [place] [address]-10-31 08:42:00 Test Item Value Reference Range Interpretation Comments Segs (test code = Segs) 71.1 45.0-75.0 [place] [address]-10-31 08:42:00 Test Item Value Reference Range Interpretation Comments Lymphocytes (test code = Lymphocytes) 16.3 20.0-40.0 [place] [address]-10-31 08:42:00 Test Item Value Reference Range Interpretation Comments Monocytes (test code = Monocytes) 8.0 2.0-12.0 [place] [address]-10-31 08:42:00 Test Item Value Reference Range Interpretation Comments Eosinophils (test code = 4.0 See_Comment [A utomated message] The Eosinophils) system which ge nerated this result tra nsmitted reference range : <=4.0. The reference r yared was not used to int erpret this result as normal/abnormal . [facility] CenterVpmnrybUHGREVIUIF0625-25-28 08:42:00 Test Item Value Reference Range Interpretation Comments Neutrophils # (test code = Neutrophils 4.7 1.5-8.1 #) [place] [address]-10-31 08:42:00 Test Item Value Reference Range Interpretation Comments Lymphocytes # (test code = Lymphocytes 1.1 1.0-5.5 #) [place] [address]-10-31 08:42:00 Test Item Value Reference Range Interpretation Comments Monocytes # (test code 0.5 See_Comment [Aut omated message] The = Monocytes #) system which generated this result tra nsmitted reference range : <=0.8. The reference r yared was not used to int erpret this result as normal/abnormal . [place] 922080-10-31 08:42:00 Test Item Value Reference Range Interpretation Comments Eosinophils # (test code 0.3 See_Comment [A utomated message] The = Eosinophils #) system [facility] h generated this result tra nsmitted reference range : <=0.5. The reference r yared was not used to int erpret this result as normal/abnormal . [place] 124950-10-31 08:42:00 Test Item Value Reference Range Interpretation Comments Phosphorus (test code = Phosphorus) 4.4 2.5-4.5 [place] 124950-10-31 08:42:00 Test Item Value Reference Range Interpretation Comments Glucose Lvl (test code = Glucose Lvl) 80 70-99 [place] 124950-10-31 08:42:00 Test Item Value Reference Range Interpretation Comments BUN (test code = BUN) 34 7-22 [place] 124950-10-31 08:42:00 Test Item Value Reference Range Interpretation Comments Creatinine Lvl (test code = Creatinine 10.90 0.50-1.40 Lvl) [place] 124950-10-31 08:42:00 Test Item Value Reference Range Interpretation Comments Sodium Lvl (test code = Sodium Lvl) 138 135-145 [place] 124950-10-31 08:42:00 Test Item Value Reference Range Interpretation Comments Potassium Lvl (test code = Potassium 3.6 3.5-5.1 Lvl) [place] 124950-10-31 08:42:00 Test Item Value Reference Range Interpretation Comments Chloride Lvl (test code = Chloride Lvl) 99 95-109 [place] 124950-10-31 08:42:00 Test Item Value Reference Range Interpretation Comments CO2 (test code = CO2) 33 24-32 [place] 124950-10-31 08:42:00 Test Item Value Reference Range Interpretation Comments Calcium Lvl (test code = Calcium Lvl) 8.1 8.5-10.5 [place] 124950-10-31 08:42:00 Test Item Value Reference Range Interpretation Comments AGAP (test code = AGAP) 9.6 10.0-20.0 [place] 124950-10-31 08:42:00 Test Item Value Reference Range Interpretation Comments eGFR (test code = eGFR) 5 [facility]CjqyhdbBZGHPBTAQD7030-58-99 08:42:00 Test Item Value Reference Range Interpretation Comments Basophils (test code = 0.6 See_Comment [Aut omated message] The Basophils) system which ge nerated this result tra nsmitted reference range : <=1.0. The reference r yared was not used to int erpret this result as normal/abnormal . [facility] CenterEzbhvoiURAHIGMXNH8320-93-57 08:42:00 Test Item Value Reference Range Interpretation Comments WBC (test code = WBC) 6.7 3.7-10.4 [place] 922080-10-31 08:42:00 Test Item Value Reference Range Interpretation Comments RBC (test code = RBC) 2.53 4.70-6.10 [facility] CenterAazqhmlSOBVSKCHUO7535-21-91 08:42:00 Test Item Value Reference Range Interpretation Comments MCV (test code = MCV) 84.8 80.0-94.0 [place] 922080-10-31 08:42:00 Test Item Value Reference Range Interpretation Comments MCH (test code = MCH) 28.5 pg 27.0-31.0 [facility] CenterGxlsrvuQZMKIIHWGB4204-73-74 08:42:00 Test Item Value Reference Range Interpretation Comments MCHC (test code = MCHC) 33.6 32.0-36.0 [facility] CenterTlqlgyeFMOHMNDNQU3732-74-56 08:42:00 Test Item Value Reference Range Interpretation Comments RDW (test code = RDW) 14.4 11.5-14.5 [facility] CenterRsxenrzXEGLRLMTUB5438-49-79 08:42:00 Test Item Value Reference Range Interpretation Comments Platelet (test code = Platelet) 182 133-450 [facility] CenterFaofaezBKJVUZLKJT5712-96-07 08:42:00 Test Item Value Reference Range Interpretation Comments MPV (test code = MPV) 7.0 7.4-10.4 [place] 922080-10-31 08:42:00 Test Item Value Reference Range Interpretation Comments Segs (test code = Segs) 71.1 45.0-75.0 [place] 922080-10-31 08:42:00 Test Item Value Reference Range Interpretation Comments Lymphocytes (test code = Lymphocytes) 16.3 20.0-40.0 [place] 922080-10-31 08:42:00 Test Item Value Reference Range Interpretation Comments Monocytes (test code = Monocytes) 8.0 2.0-12.0 [place] 922080-10-31 08:42:00 Test Item Value Reference Range Interpretation Comments Eosinophils (test code = 4.0 See_Comment [A utomated message] The Eosinophils) system which ge nerated this result tra nsmitted reference range : <=4.0. The reference r yared was not used to int erpret this result as normal/abnormal . [place] 922080-10-31 08:42:00 Test Item Value Reference Range Interpretation Comments Neutrophils # (test code = Neutrophils 4.7 1.5-8.1 #) [place] 922080-10-31 08:42:00 Test Item Value Reference Range Interpretation Comments Lymphocytes # (test code = Lymphocytes 1.1 1.0-5.5 #) [place] [address]-10-31 08:42:00 Test Item Value Reference Range Interpretation Comments Monocytes # (test code 0.5 See_Comment [Aut omated message] The = Monocytes #) system which generated this result tra nsmitted reference range : <=0.8. The reference r yared was not used to int erpret this result as normal/abnormal . [place] 922080-10-31 08:42:00 Test Item Value Reference Range Interpretation Comments Eosinophils # (test code 0.3 See_Comment [A utomated message] The = Eosinophils #) system whic h generated this result tra nsmitted reference range : <=0.5. The reference r yared was not used to int erpret this result as normal/abnormal . [facility] [id number] 08:42:00 Test Item Value Reference Range Interpretation Comments Phosphorus (test code = Phosphorus) 4.4 2.5-4.5 [facility] [id number] 08:42:00 Test Item Value Reference Range Interpretation Comments Glucose Lvl (test code = Glucose Lvl) 80 70-99 [facility] [id number] 08:42:00 Test Item Value Reference Range Interpretation Comments BUN (test code = BUN) 34 7-22 [facility] [id number] 08:42:00 Test Item Value Reference Range Interpretation Comments Creatinine Lvl (test code = Creatinine 10.90 0.50-1.40 Lvl) [facility] [id number] 08:42:00 Test Item Value Reference Range Interpretation Comments Sodium Lvl (test code = Sodium Lvl) 138 135-145 [place] 124950-10-31 08:42:00 Test Item Value Reference Range Interpretation Comments Potassium Lvl (test code = Potassium 3.6 3.5-5.1 Lvl) [place] 124950-10-31 08:42:00 Test Item Value Reference Range Interpretation Comments Chloride Lvl (test code = Chloride Lvl) 99 95-109 [place] [address]-10-31 08:42:00 Test Item Value Reference Range Interpretation Comments CO2 (test code = CO2) 33 24-32 [place] [address]-10-31 08:42:00 Test Item Value Reference Range Interpretation Comments Calcium Lvl (test code = Calcium Lvl) 8.1 8.5-10.5 [place] 124950-10-31 08:42:00 Test Item Value Reference Range Interpretation Comments AGAP (test code = AGAP) 9.6 10.0-20.0 [place] 124950-10-31 08:42:00 Test Item Value Reference Range Interpretation Comments eGFR (test code = eGFR) 5 [place] 922080-10-31 08:42:00 Test Item Value Reference Range Interpretation Comments Basophils (test code = 0.6 See_Comment [Aut omated message] The Basophils) system which ge nerated this result tra nsmitted reference range : <=1.0. The reference r yared was not used to int erpret this result as normal/abnormal . [place] 922080-10-31 08:42:00 Test Item Value Reference Range Interpretation Comments WBC (test code = WBC) 6.7 3.7-10.4 [place] 922080-10-31 08:42:00 Test Item Value Reference Range Interpretation Comments RBC (test code = RBC) 2.53 4.70-6.10 [place] 43672-10-31 08:42:00 Test Item Value Reference Range Interpretation Comments MCV (test code = MCV) 84.8 80.0-94.0 [place] 43672-10-31 08:42:00 Test Item Value Reference Range Interpretation Comments MCH (test code = MCH) 28.5 pg 27.0-31.0 [place] 436[address]-10-31 08:42:00 Test Item Value Reference Range Interpretation Comments MCHC (test code = MCHC) 33.6 32.0-36.0 [facility]KzkgdpsALUYSKPTOW7461-46-73 08:42:00 Test Item Value Reference Range Interpretation Comments RDW (test code = RDW) 14.4 11.5-14.5 [facility] CenterDqpuvytITCBBJYSFQ9778-60-60 08:42:00 Test Item Value Reference Range Interpretation Comments Platelet (test code = Platelet) 182 133-450 [facility] CenterCzrdwkyNOEOROTTNF7442-68-71 08:42:00 Test Item Value Reference Range Interpretation Comments MPV (test code = MPV) 7.0 7.4-10.4 [place] 922080-10-31 08:42:00 Test Item Value Reference Range Interpretation Comments Segs (test code = Segs) 71.1 45.0-75.0 [place] 922080-10-31 08:42:00 Test Item Value Reference Range Interpretation Comments Lymphocytes (test code = Lymphocytes) 16.3 20.0-40.0 [place] 922080-10-31 08:42:00 Test Item Value Reference Range Interpretation Comments Monocytes (test code = Monocytes) 8.0 2.0-12.0 [place] [address]-10-31 08:42:00 Test Item Value Reference Range Interpretation Comments Eosinophils (test code = 4.0 See_Comment [A utomated message] The Eosinophils) system which ge nerated this result tra nsmitted reference range : <=4.0. The reference r yared was not used to int erpret this result as normal/abnormal . [facility] CenterUjghyobASZDLEVJUU5171-95-66 08:42:00 Test Item Value Reference Range Interpretation Comments Neutrophils # (test code = Neutrophils 4.7 1.5-8.1 #) [place] [address]-10-31 08:42:00 Test Item Value Reference Range Interpretation Comments Lymphocytes # (test code = Lymphocytes 1.1 1.0-5.5 #) [place] [address]-10-31 08:42:00 Test Item Value Reference Range Interpretation Comments Monocytes # (test code 0.5 See_Comment [Aut omated message] The = Monocytes #) system which generated this result tra nsmitted reference range : <=0.8. The reference r yared was not used to int erpret this result as normal/abnormal . [facility] CenterAsknbveKGETVITRUG4056-90-41 08:42:00 Test Item Value Reference Range Interpretation Comments Eosinophils # (test code 0.3 See_Comment [A utomated message] The = Eosinophils #) system whic h generated this result tra nsmitted reference range : <=0.5. The reference r yared was not used to int erpret this result as normal/abnormal . [facility]WztetimHWMQTQBWNY6403-67-21 02:01:00 Test Item Value Reference Range Interpretation Comments PT (test code = PT) 13.2 s 12.0-14.7 [facility] HospitalIcljrdiLYLWBRZKHO5399-55-63 02:01:00 Test Item Value Reference Range Interpretation Comments INR (test code = INR) 1.00 1 0.85-1.17 [facility] CenterAxsegjtKVQPKIETDW1160-76-33 02:01:00 Test Item Value Reference Range Interpretation Comments PTT (test code = PTT) 29.8 s 22.9-35.8 [facility] CenterZpubnsjDADMGRAABU0573-50-08 02:01:00 Test Item Value Reference Range Interpretation Comments Basophils (test code = 0.6 See_Comment [Aut omated message] The Basophils) system which ge nerated this result tra nsmitted reference range : <=1.0. The reference r yared was not used to int erpret this result as normal/abnormal . [facility]SnympxgGLCQYJANPT1718-17-94 02:01:00 Test Item Value Reference Range Interpretation Comments Hep Bs Ag (test code Negative *NA*(08/07/20 = Hep Bs Ag) 9:01 PM) [facility] CenterNxqvhayQSQVQITENQ4358-79-76 02:01:00 Test Item Value Reference Range Interpretation Comments PT (test code = PT) 13.2 s 12.0-14.7 [facility] HospitalKahpemaMPPVKNNFRS4275-71-45 02:01:00 Test Item Value Reference Range Interpretation Comments INR (test code = INR) 1.00 1 0.85-1.17 [facility] HospitalQzicaipIHYEVAQFUV3559-66-65 02:01:00 Test Item Value Reference Range Interpretation Comments PTT (test code = PTT) 29.8 s 22.9-35.8 [facility] HospitalPxanboxVQDMVBFCZB4752-72-19 02:01:00 Test Item Value Reference Range Interpretation Comments Basophils (test code = 0.6 See_Comment [Aut omated message] The Basophils) system which ge nerated this result tra nsmitted reference range : <=1.0. The reference r yared was not used to int erpret this result as normal/abnormal . [facility] HospitalPaheuinKIONRGXDZO9984-11-70 02:01:00 Test Item Value Reference Range Interpretation Comments Hep Bs Ag (test code Negative *NA*(08/07/20 = Hep Bs Ag) 9:01 PM) [facility] CenterHshacymAIAXBVGNJO1279-71-32 02:01:00 Test Item Value Reference Range Interpretation Comments PT (test code = PT) 13.2 s 12.0-14.7 [facility] HospitalGcuowetBHRTEDHVPQ8171-29-55 02:01:00 Test Item Value Reference Range Interpretation Comments INR (test code = INR) 1.00 1 0.85-1.17 [facility] CenterImzjjkoXNLCIKAOJA8554-33-48 02:01:00 Test Item Value Reference Range Interpretation Comments PTT (test code = PTT) 29.8 s 22.9-35.8 [facility] CenterKfjbifbQIKOEUEGAW4264-34-98 02:01:00 Test Item Value Reference Range Interpretation Comments Basophils (test code = 0.6 See_Comment [Aut omated message] The Basophils) system which ge nerated this result tra nsmitted reference range : <=1.0. The reference r yared was not used to int erpret this result as normal/abnormal . [facility] HospitalSmtmgdaWEURXTHJVA7510-34-85 02:01:00 Test Item Value Reference Range Interpretation Comments Hep Bs Ag (test code Negative *NA*(08/07/20 = Hep Bs Ag) 9:01 PM) [facility] CenterUkiakowWPHYWIWGXP9156-14-72 02:01:00 Test Item Value Reference Range Interpretation Comments PT (test code = PT) 13.2 s 12.0-14.7 [facility] HospitalTqzyomaDJCSJVJALF8204-42-44 02:01:00 Test Item Value Reference Range Interpretation Comments INR (test code = INR) 1.00 1 0.85-1.17 [facility] CenterEwfuhvxFPQMZSEXYY2661-71-88 02:01:00 Test Item Value Reference Range Interpretation Comments PTT (test code = PTT) 29.8 s 22.9-35.8 [facility] HospitalHtvooeqYSUJLGXYNX0612-69-06 02:01:00 Test Item Value Reference Range Interpretation Comments Basophils (test code = 0.6 See_Comment [Aut omated message] The Basophils) system which ge nerated this result tra nsmitted reference range : <=1.0. The reference r yared was not used to int erpret this result as normal/abnormal . [facility] HospitalBlpkjrcNHDELYANBA6693-31-46 02:01:00 Test Item Value Reference Range Interpretation Comments Hep Bs Ag (test code Negative *NA*(08/07/20 = Hep Bs Ag) 9:01 PM) [facility]2020-10-30 21:23:00 Test Item Value Reference Range Interpretation Comments Glucose Lvl (test code = Glucose Lvl) 72 70-99 [facility]2020-10-30 21:23:00 Test Item Value Reference Range Interpretation Comments BUN (test code = BUN) 28 7-22 [facility]2020-10-30 21:23:00 Test Item Value Reference Range Interpretation Comments Creatinine Lvl (test code = Creatinine 9.63 0.50-1.40 Lvl) [facility]2020-10-30 21:23:00 Test Item Value Reference Range Interpretation Comments Sodium Lvl (test code = Sodium Lvl) 137 135-145 [facility]2020-10-30 21:23:00 Test Item Value Reference Range Interpretation Comments Potassium Lvl (test code = Potassium 3.6 3.5-5.1 Lvl) [facility]2020-10-30 21:23:00 Test Item Value Reference Range Interpretation Comments Chloride Lvl (test code = Chloride Lvl) 99 95-109 [facility]2020-10-30 21:23:00 Test Item Value Reference Range Interpretation Comments CO2 (test code = CO2) 32 24-32 [facility]2020-10-30 21:23:00 Test Item Value Reference Range Interpretation Comments AGAP (test code = AGAP) 9.6 10.0-20.0 [facility]2020-10-30 21:23:00 Test Item Value Reference Range Interpretation Comments Calcium Lvl (test code = Calcium Lvl) 8.3 8.5-10.5 [facility]2020-10-30 21:23:00 Test Item Value Reference Range Interpretation Comments eGFR (test code = eGFR) 5 [facility]2020-10-30 21:23:00 Test Item Value Reference Range Interpretation Comments Glucose Lvl (test code = Glucose Lvl) 72 70-99 [facility]2020-10-30 21:23:00 Test Item Value Reference Range Interpretation Comments BUN (test code = BUN) 28 7- [facility]2020-10-30 21:23:00 Test Item Value Reference Range Interpretation Comments Creatinine Lvl (test code = Creatinine 9.63 0.50-1.40 Lvl) [facility]2020-10-30 21:23:00 Test Item Value Reference Range Interpretation Comments Sodium Lvl (test code = Sodium Lvl) 137 135-145 [facility] [id number] 21:23:00 Test Item Value Reference Range Interpretation Comments Potassium Lvl (test code = Potassium 3.6 3.5-5.1 Lvl) [facility]2020-10-30 21:23:00 Test Item Value Reference Range Interpretation Comments Chloride Lvl (test code = Chloride Lvl) 99 95-109 [facility]Your[facility] [id number] 21:23:00 Test Item Value Reference Range Interpretation Comments CO2 (test code = CO2) 32 24-32 [facility]2020-10-30 21:23:00 Test Item Value Reference Range Interpretation Comments AGAP (test code = AGAP) 9.6 10.0-20.0 [facility]Your[facility] [id number] 21:23:00 Test Item Value Reference Range Interpretation Comments Calcium Lvl (test code = Calcium Lvl) 8.3 8.5-10.5 [facility] [id number] 21:23:00 Test Item Value Reference Range Interpretation Comments eGFR (test code = eGFR) 5 [facility]2020-10-30 21:23:00 Test Item Value Reference Range Interpretation Comments Glucose Lvl (test code = Glucose Lvl) 72 70-99 [facility] [id number] 21:23:00 Test Item Value Reference Range Interpretation Comments BUN (test code = BUN) 28 7- [facility]2020-10-30 21:23:00 Test Item Value Reference Range Interpretation Comments Creatinine Lvl (test code = Creatinine 9.63 0.50-1.40 Lvl) [facility] [id number] 21:23:00 Test Item Value Reference Range Interpretation Comments Sodium Lvl (test code = Sodium Lvl) 137 135-145 [facility] HospitalCourseloadATRI[facility] MED[facility] [id number] 21:23:00 Test Item Value Reference Range Interpretation Comments Potassium Lvl (test code = Potassium 3.6 3.5-5.1 Lvl) [facility] HospitalCourseloadATRI[facility] WIL[facility] MED[facility] [id number] 21:23:00 Test Item Value Reference Range Interpretation Comments Chloride Lvl (test code = Chloride Lvl) 99 95-109 [facility] HospitalCourseloadATRI[facility] MED[facility] [id number] 21:23:00 Test Item Value Reference Range Interpretation Comments CO2 (test code = CO2) 32 24-32 [facility] HospitalCourseloadATRI[facility] MED[facility] [id number] 21:23:00 Test Item Value Reference Range Interpretation Comments AGAP (test code = AGAP) 9.6 10.0-20.0 [facility] [id number] 21:23:00 Test Item Value Reference Range Interpretation Comments Calcium Lvl (test code = Calcium Lvl) 8.3 8.5-10.5 [facility] [id number] 21:23:00 Test Item Value Reference Range Interpretation Comments eGFR (test code = eGFR) 5 [facility] HospitalCourseloadATRI[facility] [id number] 21:23:00 Test Item Value Reference Range Interpretation Comments Glucose Lvl (test code = Glucose Lvl) 72 70-99 [facility]Your[facility] [id number] 21:23:00 Test Item Value Reference Range Interpretation Comments BUN (test code = BUN) 28 7-22 [facility] HospitalCourseloadATRI[facility] MED[facility] [id number] 21:23:00 Test Item Value Reference Range Interpretation Comments Creatinine Lvl (test code = Creatinine 9.63 0.50-1.40 Lvl) [facility] HospitalCourseloadATRI[facility]IL[facility] MEDICAL [id number] 21:23:00 Test Item Value Reference Range Interpretation Comments Sodium Lvl (test code = Sodium Lvl) 137 135-145 [facility]Your[facility] [id number] 21:23:00 Test Item Value Reference Range Interpretation Comments Potassium Lvl (test code = Potassium 3.6 3.5-5.1 Lvl) [facility] HospitalCourseloadATRI[facility] MED[facility] [id number] 21:23:00 Test Item Value Reference Range Interpretation Comments Chloride Lvl (test code = Chloride Lvl) 99 95-109 [facility] [id number] 21:23:00 Test Item Value Reference Range Interpretation Comments CO2 (test code = CO2) 32 24-32 [facility] [id number] 21:23:00 Test Item Value Reference Range Interpretation Comments AGAP (test code = AGAP) 9.6 10.0-20.0 [facility]2020-10-30 21:23:00 Test Item Value Reference Range Interpretation Comments Calcium Lvl (test code = Calcium Lvl) 8.3 8.5-10.5 [facility]2020-10-30 21:23:00 Test Item Value Reference Range Interpretation Comments eGFR (test code = eGFR) 5 [facility] HospitalXgtysjeZZLIBHJTKW3089-74-15 15:21:00 Test Item Value Reference Range Interpretation Comments Coronavirus (COVID-19) Not Detected JUVENCIO (test code = (08/07/20 10:21 AM) Coronavirus (COVID-19) JUVENCIO) [id number] 15:21:00 Test Item Value Reference Range Interpretation Comments Coronavirus (COVID-19) Not Detected JUVENCIO (test code = (08/07/20 10:21 AM) Coronavirus (COVID-19) JUVENCIO) [facility] Ho[id number] 15:21:00 Test Item Value Reference Range Interpretation Comments Coronavirus (COVID-19) Not Detected JUVENCIO (test code = (08/07/20 10:21 AM) Coronavirus (COVID-19) JUVENCIO) [facility] HospitalAonmzzfHFGTZPCJLE7308-63-20 15:21:00 Test Item Value Reference Range Interpretation Comments Coronavirus (COVID-19) Not Detected JUVENCIO (test code = (08/07/20 10:21 AM) Coronavirus (COVID-19) JUVENCIO) [facility] HospitalCARDIAC [id number] 08:08:00 Test Item Value Reference Range Interpretation Comments Total CK (test code = Total CK) 50 12-191 [facility]2020-10-30 08:08:00 Test Item Value Reference Range Interpretation Comments B/C Ratio (test code = B/C Ratio) 3 1 6-25 [facility]2020-10-30 08:08:00 Test Item Value Reference Range Interpretation Comments Total Protein (test code = Total 4.5 6.4-8.4 Protein) [facility] [id number] 08:08:00 Test Item Value Reference Range Interpretation Comments Albumin Lvl (test code = Albumin Lvl) 1.4 3.5-5.0 [facility] [id number] 08:08:00 Test Item Value Reference Range Interpretation Comments Globulin (test code = Globulin) 3.1 2.7-4.2 [facility]Your[facility] [id number] 08:08:00 Test Item Value Reference Range Interpretation Comments A/G Ratio (test code = A/G Ratio) 0.5 1 0.7-1.6 [facility] [id number] 08:08:00 Test Item Value Reference Range Interpretation Comments ALT (test code = ALT) 15 See_Comment [Auto mated message] The system which ge nerated this result transmit emerson reference range : <=65. The reference range was not used to interpr et this result as erinn l/abnormal. [facility]Your[facility] [id number] 08:08:00 Test Item Value Reference Range Interpretation Comments AST (test code = AST) 16 See_Comment [Auto mated message] The system which ge nerated this result transmit emerson reference range : <=37. The reference range was not used to interpr et this result as erinn l/abnormal. [facility] [id number] 08:08:00 Test Item Value Reference Range Interpretation Comments Alk Phos (test code = Alk Phos) 82 39-136 [facility] [id number] 08:08:00 Test Item Value Reference Range Interpretation Comments Bili Total (test code = Bili Total) 0.4 0.2-1.3 [facility] [id number] 08:08:00 Test Item Value Reference Range Interpretation Comments Magnesium Lvl (test code = Magnesium 1.7 1.8-2.4 Lvl) [facility] [id number] 08:08:00 Test Item Value Reference Range Interpretation Comments Phosphorus (test code = Phosphorus) 3.8 2.5-4.5 [facility] H[id number] 08:08:00 Test Item Value Reference Range Interpretation Comments PT (test code = PT) 13.0 s 12.0-14.7 [facility] HospitalZtasqmnXGHBVQBQAZ6954-35-60 08:08:00 Test Item Value Reference Range Interpretation Comments INR (test code = INR) 0.98 1 0.85-1.17 [facility] [id number] 08:08:00 Test Item Value Reference Range Interpretation Comments PTT (test code = PTT) 30.5 s 22.9-35.8 [facility] Hospit[id number] 08:08:00 Test Item Value Reference Range Interpretation Comments Basophils # (test code 0.1 See_Comment [Aut omated message] The = Basophils #) system which generated this result tra nsmitted reference range : <=0.2. The reference r yared was not used to int erpret this result as normal/abnormal . [facility] [employer]ARD[employer]AC [id number] 08:08:00 Test Item Value Reference Range Interpretation Comments Total CK (test code = Total CK) 50 12-191 [facility] [employer] [id number] 08:08:00 Test Item Value Reference Range Interpretation Comments B/C Ratio (test code = B/C Ratio) 3 1 6-25 [facility] [employer] [id number] 08:08:00 Test Item Value Reference Range Interpretation Comments Total Protein (test code = Total 4.5 6.4-8.4 Protein) [facility] [employer] [id number] 08:08:00 Test Item Value Reference Range Interpretation Comments Albumin Lvl (test code = Albumin Lvl) 1.4 3.5-5.0 [facility] [employer] [id number] 08:08:00 Test Item Value Reference Range Interpretation Comments Globulin (test code = Globulin) 3.1 2.7-4.2 [facility] [employer] [id number] 08:08:00 Test Item Value Reference Range Interpretation Comments A/G Ratio (test code = A/G Ratio) 0.5 1 0.7-1.6 [facility] [employer] [id number] 08:08:00 Test Item Value Reference Range Interpretation Comments ALT (test code = ALT) 15 See_Comment [Auto mated message] The system which ge nerated this result transmit emerson reference range : <=65. The reference range was not used to interpr et this result as erinn l/abnormal. [facility] [employer] [id number] 08:08:00 Test Item Value Reference Range Interpretation Comments AST (test code = AST) 16 See_Comment [Auto mated message] The system which ge nerated this result transmit emerson reference range : <=37. The reference range was not used to interpr et this result as erinn l/abnormal. [facility] [id number] 08:08:00 Test Item Value Reference Range Interpretation Comments Alk Phos (test code = Alk Phos) 82 39-136 [facility] [id number] 08:08:00 Test Item Value Reference Range Interpretation Comments Bili Total (test code = Bili Total) 0.4 0.2-1.3 [facility] [id number] 08:08:00 Test Item Value Reference Range Interpretation Comments Magnesium Lvl (test code = Magnesium 1.7 1.8-2.4 Lvl) [facility] [id number] 08:08:00 Test Item Value Reference Range Interpretation Comments Phosphorus (test code = Phosphorus) 3.8 2.5-4.5 [facility] [id number] 08:08:00 Test Item Value Reference Range Interpretation Comments PT (test code = PT) 13.0 s 12.0-14.7 [facility] HospitalSvzztrqZMETYBLDSI2082-24-20 08:08:00 Test Item Value Reference Range Interpretation Comments INR (test code = INR) 0.98 1 0.85-1.17 [facility] Hos[id number] 08:08:00 Test Item Value Reference Range Interpretation Comments PTT (test code = PTT) 30.5 s 22.9-35.8 [facility] HospitalJzytqhuAIGTPDDHYF9179-30-29 08:08:00 Test Item Value Reference Range Interpretation Comments Basophils # (test code 0.1 See_Comment [Aut omated message] The = Basophils #) system which generated this result tra nsmitted reference range : <=0.2. The reference r yared was not used to int erpret this result as normal/abnormal . [facility] [id number] 08:08:00 Test Item Value Reference Range Interpretation Comments Total CK (test code = Total CK) 50 12-191 [facility] [id number] 08:08:00 Test Item Value Reference Range Interpretation Comments B/C Ratio (test code = B/C Ratio) 3 1 6-25 [facility] [employer] [id number] 08:08:00 Test Item Value Reference Range Interpretation Comments Total Protein (test code = Total 4.5 6.4-8.4 Protein) [facility] [employer] [id number] 08:08:00 Test Item Value Reference Range Interpretation Comments Albumin Lvl (test code = Albumin Lvl) 1.4 3.5-5.0 [facility] [employer] [id number] 08:08:00 Test Item Value Reference Range Interpretation Comments Globulin (test code = Globulin) 3.1 2.7-4.2 [facility] [employer] [id number] 08:08:00 Test Item Value Reference Range Interpretation Comments A/G Ratio (test code = A/G Ratio) 0.5 1 0.7-1.6 [facility] [id number] 08:08:00 Test Item Value Reference Range Interpretation Comments ALT (test code = ALT) 15 See_Comment [Auto mated message] The system which ge nerated this result transmit emerson reference range : <=65. The reference range was not used to interpr et this result as erinn l/abnormal. [facility] [employer] [id number] 08:08:00 Test Item Value Reference Range Interpretation Comments AST (test code = AST) 16 See_Comment [Auto mated message] The system which ge nerated this result transmit emerson reference range : <=37. The reference range was not used to interpr et this result as erinn l/abnormal. [facility] [employer] [id number] 08:08:00 Test Item Value Reference Range Interpretation Comments Alk Phos (test code = Alk Phos) 82 39-136 [facility] [employer] [id number] 08:08:00 Test Item Value Reference Range Interpretation Comments Bili Total (test code = Bili Total) 0.4 0.2-1.3 [facility] [employer] [id number] 08:08:00 Test Item Value Reference Range Interpretation Comments Magnesium Lvl (test code = Magnesium 1.7 1.8-2.4 Lvl) [facility] [id number] 08:08:00 Test Item Value Reference Range Interpretation Comments Phosphorus (test code = Phosphorus) 3.8 2.5-4.5 [facility] [id number] 08:08:00 Test Item Value Reference Range Interpretation Comments PT (test code = PT) 13.0 s 12.0-14.7 [facility] [id number] 08:08:00 Test Item Value Reference Range Interpretation Comments INR (test code = INR) 0.98 1 0.85-1.17 [facility]VtdmmzeLEZTSPILDO4016-78-72 08:08:00 Test Item Value Reference Range Interpretation Comments PTT (test code = PTT) 30.5 s 22.9-35.8 [facility] HospitalAmyyyzaQIIWGLTBJV0608-75-08 08:08:00 Test Item Value Reference Range Interpretation Comments Basophils # (test code 0.1 See_Comment [Aut omated message] The = Basophils #) system which generated this result tra nsmitted reference range : <=0.2. The reference r yared was not used to int erpret this result as normal/abnormal . [facility] [id number] 08:08:00 Test Item Value Reference Range Interpretation Comments Total CK (test code = Total CK) 50 12-191 [facility] [id number] 08:08:00 Test Item Value Reference Range Interpretation Comments B/C Ratio (test code = B/C Ratio) 3 1 6-25 [facility] [employer] [id number] 08:08:00 Test Item Value Reference Range Interpretation Comments Total Protein (test code = Total 4.5 6.4-8.4 Protein) [facility] [id number] 08:08:00 Test Item Value Reference Range Interpretation Comments Albumin Lvl (test code = Albumin Lvl) 1.4 3.5-5.0 [facility] [id number] 08:08:00 Test Item Value Reference Range Interpretation Comments Globulin (test code = Globulin) 3.1 2.7-4.2 [facility] [employer] [id number] 08:08:00 Test Item Value Reference Range Interpretation Comments A/G Ratio (test code = A/G Ratio) 0.5 1 0.7-1.6 [facility] [id number] 08:08:00 Test Item Value Reference Range Interpretation Comments ALT (test code = ALT) 15 See_Comment [Auto mated message] The system which ge nerated this result transmit emerson reference range : <=65. The reference range was not used to interpr et this result as erinn l/abnormal. [facility] [employer] [id number] 08:08:00 Test Item Value Reference Range Interpretation Comments AST (test code = AST) 16 See_Comment [Auto mated message] The system which ge nerated this result transmit emerson reference range : <=37. The reference range was not used to interpr et this result as erinn l/abnormal. [facility] [id number] 08:08:00 Test Item Value Reference Range Interpretation Comments Alk Phos (test code = Alk Phos) 82 39-136 [facility] [id number] 08:08:00 Test Item Value Reference Range Interpretation Comments Bili Total (test code = Bili Total) 0.4 0.2-1.3 [facility] [id number] 08:08:00 Test Item Value Reference Range Interpretation Comments Magnesium Lvl (test code = Magnesium 1.7 1.8-2.4 Lvl) [facility] [id number] 08:08:00 Test Item Value Reference Range Interpretation Comments Phosphorus (test code = Phosphorus) 3.8 2.5-4.5 [facility] HospitalIcjugvpUIQNDOERXI7401-35-97 08:08:00 Test Item Value Reference Range Interpretation Comments PT (test code = PT) 13.0 s 12.0-14.7 [facility] Hos[id number] 08:08:00 Test Item Value Reference Range Interpretation Comments INR (test code = INR) 0.98 1 0.85-1.17 [facility] H[id number] 08:08:00 Test Item Value Reference Range Interpretation Comments PTT (test code = PTT) 30.5 s 22.9-35.8 [facility] Hos[id number] 08:08:00 Test Item Value Reference Range Interpretation Comments Basophils # (test code 0.1 See_Comment [Aut omated message] The = Basophils #) system which generated this result tra nsmitted reference range : <=0.2. The reference r yared was not used to int erpret this result as normal/abnormal . [facility] Hosp[id number] 02:04:00 Test Item Value Reference Range Interpretation Comments Basophils # (test code 0.1 See_Comment [Aut omated message] The = Basophils #) system which generated this result tra nsmitted reference range : <=0.2. The reference r yared was not used to int erpret this result as normal/abnormal . [facility] H[id number] 02:04:00 Test Item Value Reference Range Interpretation Comments Basophils # (test code 0.1 See_Comment [Aut omated message] The = Basophils #) system which generated this result tra nsmitted reference range : <=0.2. The reference r yared was not used to int erpret this result as normal/abnormal . [facility] HospitalOxfmlxvVUVXGQHWFS8698-91-71 02:04:00 Test Item Value Reference Range Interpretation Comments Basophils # (test code 0.1 See_Comment [Aut omated message] The = Basophils #) system which generated this result tra nsmitted reference range : <=0.2. The reference r yared was not used to int erpret this result as normal/abnormal . [facility] HospitalNivfspxPYYXNRFEVY3289-83-89 02:04:00 Test Item Value Reference Range Interpretation Comments Basophils # (test code 0.1 See_Comment [Aut omated message] The = Basophils #) system which generated this result tra nsmitted reference range : <=0.2. The reference r yared was not used to int erpret this result as normal/abnormal . [facility] [id number] 01:34:00 Test Item Value Reference Range Interpretation Comments Total Protein (test code = Total 4.8 6.4-8.4 Protein) [facility] [id number] 01:34:00 Test Item Value Reference Range Interpretation Comments Albumin Lvl (test code = Albumin Lvl) 1.6 3.5-5.0 [facility] [employer] [id number] 01:34:00 Test Item Value Reference Range Interpretation Comments Globulin (test code = Globulin) 3.2 2.7-4.2 [facility] [employer] [id number] 01:34:00 Test Item Value Reference Range Interpretation Comments A/G Ratio (test code = A/G Ratio) 0.5 1 0.7-1.6 [facility] [id number] 01:34:00 Test Item Value Reference Range Interpretation Comments ALT (test code = ALT) 14 See_Comment [Auto mated message] The system which ge nerated this result transmit emerson reference range : <=65. The reference range was not used to interpr et this result as erinn l/abnormal. [facility] [id number] 01:34:00 Test Item Value Reference Range Interpretation Comments AST (test code = AST) 16 See_Comment [Auto mated message] The system which ge nerated this result transmit emerson reference range : <=37. The reference range was not used to interpr et this result as erinn l/abnormal. [facility] [employer] [id number] 01:34:00 Test Item Value Reference Range Interpretation Comments Alk Phos (test code = Alk Phos) 85 39-136 [facility] [employer] [id number] 01:34:00 Test Item Value Reference Range Interpretation Comments Bili Total (test code = Bili Total) 0.4 0.2-1.3 [facility] [employer] [id number] 01:34:00 Test Item Value Reference Range Interpretation Comments Bili Direct (test code no gt See_Comment [Aut omated message] The = Bili Direct) system which generated this result tra nsmitted reference range : <=0.3. The reference r yared was not used to int erpret this result as erinn l/abnormal. [facility] [employer] [id number] 01:34:00 Test Item Value Reference Range Interpretation Comments Bili Indirect Unable to See_Comment [Automated (test code = Bili Calculate message] T he system Indirect) which generated this result transmitted reference range : <=1.0. The reference range was not used to interpret this result as normal/abnormal . [facility] [employer] [id number] 01:34:00 Test Item Value Reference Range Interpretation Comments Total Protein (test code = Total 4.8 6.4-8.4 Protein) [facility] [employer] [id number] 01:34:00 Test Item Value Reference Range Interpretation Comments Albumin Lvl (test code = Albumin Lvl) 1.6 3.5-5.0 [facility] [employer] [id number] 01:34:00 Test Item Value Reference Range Interpretation Comments Globulin (test code = Globulin) 3.2 2.7-4.2 [facility] [employer] [id number] 01:34:00 Test Item Value Reference Range Interpretation Comments A/G Ratio (test code = A/G Ratio) 0.5 1 0.7-1.6 [place] [id number] 01:34:00 Test Item Value Reference Range Interpretation Comments ALT (test code = ALT) 14 See_Comment [Auto mated message] The system which ge nerated this result transmit emerson reference range : <=65. The reference range was not used to interpr et this result as erinn l/abnormal. [facility] [id number] 01:34:00 Test Item Value Reference Range Interpretation Comments AST (test code = AST) 16 See_Comment [Auto mated message] The system which ge nerated this result transmit emerson reference range : <=37. The reference range was not used to interpr et this result as erinn l/abnormal. [address]10-30 01:34:00 Test Item Value Reference Range Interpretation Comments Alk Phos (test code = Alk Phos) 85 39-136 [facility] [id number] 01:34:00 Test Item Value Reference Range Interpretation Comments Bili Total (test code = Bili Total) 0.4 0.2-1.3 [address]10-30 01:34:00 Test Item Value Reference Range Interpretation Comments Bili Direct (test code no gt See_Comment [Aut omated message] The = Bili Direct) system which generated this result tra nsmitted reference range : <=0.3. The reference r yared was not used to int erpret this result as erinn l/abnormal. [facility] [id number] 01:34:00 Test Item Value Reference Range Interpretation Comments Bili Indirect Unable to See_Comment [Automated (test code = Bili Calculate message] T he system Indirect) which generated this result transmitted reference range : <=1.0. The reference range was not used to interpret this result as normal/abnormal . [facility] [id number] 01:34:00 Test Item Value Reference Range Interpretation Comments Total Protein (test code = Total 4.8 6.4-8.4 Protein) [address]10-30 01:34:00 Test Item Value Reference Range Interpretation Comments Albumin Lvl (test code = Albumin Lvl) 1.6 3.5-5.0 [address]10-30 01:34:00 Test Item Value Reference Range Interpretation Comments Globulin (test code = Globulin) 3.2 2.7-4.2 [place] [id number] 01:34:00 Test Item Value Reference Range Interpretation Comments A/G Ratio (test code = A/G Ratio) 0.5 1 0.7-1.6 [address]10-30 01:34:00 Test Item Value Reference Range Interpretation Comments ALT (test code = ALT) 14 See_Comment [Auto mated message] The system which ge nerated this result transmit emerson reference range : <=65. The reference range was not used to interpr et this result as erinn l/abnormal. [facility] [id number] 01:34:00 Test Item Value Reference Range Interpretation Comments AST (test code = AST) 16 See_Comment [Auto mated message] The system which ge nerated this result transmit emerson reference range : <=37. The reference range was not used to interpr et this result as erinn l/abnormal. [facility] [id number] 01:34:00 Test Item Value Reference Range Interpretation Comments Alk Phos (test code = Alk Phos) 85 39-136 [facility] [id number] 01:34:00 Test Item Value Reference Range Interpretation Comments Bili Total (test code = Bili Total) 0.4 0.2-1.3 [address]10-30 01:34:00 Test Item Value Reference Range Interpretation Comments Bili Direct (test code no gt See_Comment [Aut omated message] The = Bili Direct) system which generated this result tra nsmitted reference range : <=0.3. The reference r yared was not used to int erpret this result as erinn l/abnormal. [facility] [id number] 01:34:00 Test Item Value Reference Range Interpretation Comments Bili Indirect Unable to See_Comment [Automated (test code = Bili Calculate message] T he system Indirect) which generated this result transmitted reference range : <=1.0. The reference range was not used to interpret this result as normal/abnormal . [facility] [employer] [id number] 01:34:00 Test Item Value Reference Range Interpretation Comments Total Protein (test code = Total 4.8 6.4-8.4 Protein) [facility] [id number] 01:34:00 Test Item Value Reference Range Interpretation Comments Albumin Lvl (test code = Albumin Lvl) 1.6 3.5-5.0 [facility] [id number] 01:34:00 Test Item Value Reference Range Interpretation Comments Globulin (test code = Globulin) 3.2 2.7-4.2 [facility] [id number] 01:34:00 Test Item Value Reference Range Interpretation Comments A/G Ratio (test code = A/G Ratio) 0.5 1 0.7-1.6 [facility] [id number] 01:34:00 Test Item Value Reference Range Interpretation Comments ALT (test code = ALT) 14 See_Comment [Auto mated message] The system which ge nerated this result transmit emerson reference range : <=65. The reference range was not used to interpr et this result as erinn l/abnormal. [facility] [id number] 01:34:00 Test Item Value Reference Range Interpretation Comments AST (test code = AST) 16 See_Comment [Auto mated message] The system which ge nerated this result transmit emerson reference range : <=37. The reference range was not used to interpr et this result as erinn l/abnormal. [facility] [id number] 01:34:00 Test Item Value Reference Range Interpretation Comments Alk Phos (test code = Alk Phos) 85 39-136 [facility] [id number] 01:34:00 Test Item Value Reference Range Interpretation Comments Bili Total (test code = Bili Total) 0.4 0.2-1.3 [facility] [id number] 01:34:00 Test Item Value Reference Range Interpretation Comments Bili Direct (test code no gt See_Comment [Aut omated message] The = Bili Direct) system which generated this result tra nsmitted reference range : <=0.3. The reference r yared was not used to int erpret this result as erinn l/abnormal. [facility] [employer] [id number] 01:34:00 Test Item Value Reference Range Interpretation Comments Bili Indirect Unable to See_Comment [Automated (test code = Bili Calculate message] T he system Indirect) which generated this result transmitted reference range : <=1.0. The reference range was not used to interpret this result as normal/abnormal . [facility]CARD[facility] [id number] 22:24:00 Test Item Value Reference Range Interpretation Comments Troponin-I (test code 0.03 See_Comment [Auto mated message] The = Troponin-I) system which g enerated this result transmit emerson reference range : <=0.40. The reference r yared was not used to interpr et this result as erinn l/abnormal. [facility]CHE[facility] [id number] 22:24:00 Test Item Value Reference Range Interpretation Comments Magnesium Lvl (test code = Magnesium 1.6 1.8-2.4 Lvl) [facility] Hos[id number] 22:24:00 Test Item Value Reference Range Interpretation Comments Metamyelocytes (test code 1.0 See_Comment [ Automated message] = Metamyelocytes) The system which generated this result transmitted ref erence range: <=1.0. T he reference range was not used to int erpret this result as normal/abnormal . [facility] H[id number] 22:24:00 Test Item Value Reference Range Interpretation Comments Myelocytes (test code = Myelocytes) 1.0 [facility] H[id number] 22:24:00 Test Item Value Reference Range Interpretation Comments Toxic Gran (test code Moderate *ABN*(08/06/20 = Toxic Gran) 5:24 PM) [facility] HospitalEaydkrjKGCVZZSFXB1608-58-32 22:24:00 Test Item Value Reference Range Interpretation Comments PT (test code = PT) 12.9 s 12.0-14.7 [facility] HospitalOfneiywERQXQQQHJN2714-48-36 22:24:00 Test Item Value Reference Range Interpretation Comments INR (test code = INR) 0.97 1 0.85-1.17 [facility] HospitalXbqegjfXFNDUHLISK0982-68-00 22:24:00 Test Item Value Reference Range Interpretation Comments Bands (test code = 2.0 See_Comment [Automat ed message] The Bands) system which ge nerated this result transmit emerson reference range : <=11.0. The reference r yared was not used to interpr et this result as erinn l/abnormal. [facility] [id number] 22:24:00 Test Item Value Reference Range Interpretation Comments Atypical Lymphs (test code = Atypical 0.0 Lymphs) [facility] Ho[id number] 22:24:00 Test Item Value Reference Range Interpretation Comments RBC Morph (test code = Normal (08/06/20 5:24 RBC Morph) PM) [facility] Ho[id number] 22:24:00 Test Item Value Reference Range Interpretation Comments Plt Morph (test code = Normal (08/06/20 5:24 Plt Morph) PM) [facility]CARD[facility]AC [id number] 22:24:00 Test Item Value Reference Range Interpretation Comments Troponin-I (test code 0.03 See_Comment [Auto mated message] The = Troponin-I) system which g enerated this result transmit emerson reference range : <=0.40. The reference r yared was not used to interpr et this result as erinn l/abnormal. [facility] HospitalCHEM [id number] 22:24:00 Test Item Value Reference Range Interpretation Comments Magnesium Lvl (test code = Magnesium 1.6 1.8-2.4 Lvl) [facility] [id number] 22:24:00 Test Item Value Reference Range Interpretation Comments Metamyelocytes (test code 1.0 See_Comment [ Automated message] = Metamyelocytes) The system which generated this result transmitted ref erence range: <=1.0. T he reference range was not used to int erpret this result as normal/abnormal . [facility] HospitalJnsyitqDAZRVYVUFO7422-23-81 22:24:00 Test Item Value Reference Range Interpretation Comments Myelocytes (test code = Myelocytes) 1.0 [facility] [id number] 22:24:00 Test Item Value Reference Range Interpretation Comments Toxic Gran (test code Moderate *ABN*(08/06/20 = Toxic Gran) 5:24 PM) [facility] Hos[id number] 22:24:00 Test Item Value Reference Range Interpretation Comments PT (test code = PT) 12.9 s 12.0-14.7 [facility] Hos[id number] 22:24:00 Test Item Value Reference Range Interpretation Comments INR (test code = INR) 0.97 1 0.85-1.17 [facility] Hos[id number] 22:24:00 Test Item Value Reference Range Interpretation Comments Bands (test code = 2.0 See_Comment [Automat ed message] The Bands) system which ge nerated this result transmit emerson reference range : <=11.0. The reference r yared was not used to interpr et this result as erinn l/abnormal. [facility] HospitalEtzacctGZRGQCYJQF4730-02-74 22:24:00 Test Item Value Reference Range Interpretation Comments Atypical Lymphs (test code = Atypical 0.0 Lymphs) [facility] HospitalOuoefqaVBCHGTIHFT9140-33-26 22:24:00 Test Item Value Reference Range Interpretation Comments RBC Morph (test code = Normal (08/06/20 5:24 RBC Morph) PM) [facility] H[id number] 22:24:00 Test Item Value Reference Range Interpretation Comments Plt Morph (test code = Normal (08/06/20 5:24 Plt Morph) PM) [facility] [id number] 22:24:00 Test Item Value Reference Range Interpretation Comments Troponin-I (test code 0.03 See_Comment [Auto mated message] The = Troponin-I) system which g enerated this result transmit emerson reference range : <=0.40. The reference r yared was not used to interpr et this result as erinn l/abnormal. [facility]CHEM [id number] 22:24:00 Test Item Value Reference Range Interpretation Comments Magnesium Lvl (test code = Magnesium 1.6 1.8-2.4 Lvl) [facility] CenterEgsygaxVURMUUAWQZ7842-00-59 22:24:00 Test Item Value Reference Range Interpretation Comments Metamyelocytes (test code 1.0 See_Comment [ Automated message] = Metamyelocytes) The system which generated this result transmitted ref erence range: <=1.0. T he reference range was not used to int erpret this result as normal/abnormal . [facility] HospitalFbhplhgDQYVFSHLPD0530-36-83 22:24:00 Test Item Value Reference Range Interpretation Comments Myelocytes (test code = Myelocytes) 1.0 [facility] HospitalJdfonsmEYTRYWZNVC9102-17-84 22:24:00 Test Item Value Reference Range Interpretation Comments Toxic Gran (test code Moderate *ABN*(08/06/20 = Toxic Gran) 5:24 PM) [facility] HospitalIyjaphoEUGBWDGMNX1742-48-77 22:24:00 Test Item Value Reference Range Interpretation Comments PT (test code = PT) 12.9 s 12.0-14.7 [facility] CenterZnzxllpRUSBCUMKNI5789-13-31 22:24:00 Test Item Value Reference Range Interpretation Comments INR (test code = INR) 0.97 1 0.85-1.17 [facility] C[id number] 22:24:00 Test Item Value Reference Range Interpretation Comments Bands (test code = 2.0 See_Comment [Automat ed message] The Bands) system which ge nerated this result transmit emerson reference range : <=11.0. The reference r yared was not used to interpr et this result as erinn l/abnormal. [facility] CenterNvvenknOYYMZRYACN8192-01-27 22:24:00 Test Item Value Reference Range Interpretation Comments Atypical Lymphs (test code = Atypical 0.0 Lymphs) [facility] CenterJiwapxtXNPAATLXEK5676-83-64 22:24:00 Test Item Value Reference Range Interpretation Comments RBC Morph (test code = Normal (08/06/20 5:24 RBC Morph) PM) [facility] HospitalPpclcloMZMDBNHSMT6319-80-78 22:24:00 Test Item Value Reference Range Interpretation Comments Plt Morph (test code = Normal (08/06/20 5:24 Plt Morph) PM) [facility] [id number] 22:24:00 Test Item Value Reference Range Interpretation Comments Troponin-I (test code 0.03 See_Comment [Auto mated message] The = Troponin-I) system which g enerated this result transmit emerson reference range : <=0.40. The reference r yared was not used to interpr et this result as erinn l/abnormal. [facility] HospitalCHEM [id number] 22:24:00 Test Item Value Reference Range Interpretation Comments Magnesium Lvl (test code = Magnesium 1.6 1.8-2.4 Lvl) [facility] CenterHkspwazUGYRFHQYOO4705-33-59 22:24:00 Test Item Value Reference Range Interpretation Comments Metamyelocytes (test code 1.0 See_Comment [ Automated message] = Metamyelocytes) The system which generated this result transmitted ref erence range: <=1.0. T he reference range was not used to int erpret this result as normal/abnormal . [facility] HospitalXeyotsnKCBQXWMBOU7948-55-59 22:24:00 Test Item Value Reference Range Interpretation Comments Myelocytes (test code = Myelocytes) 1.0 [facility] HospitalPucskdrZHKVXMUHCM8760-31-61 22:24:00 Test Item Value Reference Range Interpretation Comments Toxic Gran (test code Moderate *ABN*(08/06/20 = Toxic Gran) 5:24 PM) [facility] HospitalMfpzhhlFVQBILCIGO6784-97-99 22:24:00 Test Item Value Reference Range Interpretation Comments PT (test code = PT) 12.9 s 12.0-14.7 [facility] CenterFbflgjhLBDWWXUIGV8267-75-70 22:24:00 Test Item Value Reference Range Interpretation Comments INR (test code = INR) 0.97 1 0.85-1.17 [facility] CenterVbyxvwfWSGFWPTOKX0306-92-97 22:24:00 Test Item Value Reference Range Interpretation Comments Bands (test code = 2.0 See_Comment [Automat ed message] The Bands) system which ge nerated this result transmit emerson reference range : <=11.0. The reference r yared was not used to interpr et this result as erinn l/abnormal. [facility] CenterSmlkmitXXKIKMCKAK1814-75-76 22:24:00 Test Item Value Reference Range Interpretation Comments Atypical Lymphs (test code = Atypical 0.0 Lymphs) [facility] HospitalRlocfekCITGISOQCS9046-34-96 22:24:00 Test Item Value Reference Range Interpretation Comments RBC Morph (test code = Normal (08/06/20 5:24 RBC Morph) PM) [facility] HospitalFxgglrpNTEHGXTNDG2458-39-59 22:24:00 Test Item Value Reference Range Interpretation Comments Plt Morph (test code = Normal (08/06/20 5:24 Plt Morph) PM) [facility] [id number] 13:32:00 Test Item Value Reference Range Interpretation Comments Troponin-I (test code 0.03 See_Comment [Auto mated message] The = Troponin-I) system which g enerated this result transmit emerson reference range : <=0.40. The reference r yared was not used to interpr et this result as erinn l/abnormal. [facility] HospitalCHEM [id number] 13:32:00 Test Item Value Reference Range Interpretation Comments Glucose Lvl (test code = Glucose Lvl) 101 70-99 [facility]2020-10-16 13:32:00 Test Item Value Reference Range Interpretation Comments BUN (test code = BUN) 25 7-22 [facility]2020-10-16 13:32:00 Test Item Value Reference Range Interpretation Comments Creatinine Lvl (test code = Creatinine 9.66 0.50-1.40 Lvl) [facility]2020-10-16 13:32:00 Test Item Value Reference Range Interpretation Comments Sodium Lvl (test code = Sodium Lvl) 132 135-145 [facility]2020-10-16 13:32:00 Test Item Value Reference Range Interpretation Comments Potassium Lvl (test code = Potassium 3.0 3.5-5.1 Lvl) [facility] HospitalCourseloadATRIUM [facility]IL[facility] MEDICAL [id number] 13:32:00 Test Item Value Reference Range Interpretation Comments Chloride Lvl (test code = Chloride Lvl) 91 95-109 [facility]2020-10-16 13:32:00 Test Item Value Reference Range Interpretation Comments CO2 (test code = CO2) 32 24-32 [place] 124950-10-16 13:32:00 Test Item Value Reference Range Interpretation Comments AGAP (test code = AGAP) 12.0 10.0-20.0 [facility] HospitalCourseloadATRIUM [facility]IL[facility] MEDICAL [id number] 13:32:00 Test Item Value Reference Range Interpretation Comments Calcium Lvl (test code = Calcium Lvl) 8.7 8.5-10.5 [facility]2020-10-16 13:32:00 Test Item Value Reference Range Interpretation Comments B/C Ratio (test code = B/C Ratio) 3 1 6-25 [place] 124950-10-16 13:32:00 Test Item Value Reference Range Interpretation Comments Total Protein (test code = Total 4.9 6.4-8.4 Protein) [facility]2020-10-16 13:32:00 Test Item Value Reference Range Interpretation Comments Albumin Lvl (test code = Albumin Lvl) 1.5 3.5-5.0 [facility]2020-10-16 13:32:00 Test Item Value Reference Range Interpretation Comments Globulin (test code = Globulin) 3.4 2.7-4.2 [place] 124950-10-16 13:32:00 Test Item Value Reference Range Interpretation Comments A/G Ratio (test code = A/G Ratio) 0.4 1 0.7-1.6 [place] [address]-10-16 13:32:00 Test Item Value Reference Range Interpretation Comments ALT (test code = ALT) 16 See_Comment [Auto mated message] The system which ge nerated this result transmit emerson reference range : <=65. The reference range was not used to interpr et this result as erinn l/abnormal. [facility] HospitalYourListen.com [id number] 13:32:00 Test Item Value Reference Range Interpretation Comments AST (test code = AST) 22 See_Comment [Auto mated message] The system which ge nerated this result transmit emerson reference range : <=37. The reference range was not used to interpr et this result as erinn l/abnormal. [facility] HospitalYourListen.[facility] [id number] 13:32:00 Test Item Value Reference Range Interpretation Comments Alk Phos (test code = Alk Phos) 88 39-136 [facility] HospitalYourListen.[facility] [id number] 13:32:00 Test Item Value Reference Range Interpretation Comments Bili Total (test code = Bili Total) 0.5 0.2-1.3 [facility] HospitalYourListen.[facility] [id number] 13:32:00 Test Item Value Reference Range Interpretation Comments eGFR (test code = eGFR) 5 [place] [address]-10-16 13:32:00 Test Item Value Reference Range Interpretation Comments WBC (test code = WBC) 6.2 3.7-10.4 [place] [address]-10-16 13:32:00 Test Item Value Reference Range Interpretation Comments RBC (test code = RBC) 2.89 4.70-6.10 [place] [address]-10-16 13:32:00 Test Item Value Reference Range Interpretation Comments Hgb (test code = Hgb) 8.4 14.0-18.0 [place] [address]-10-16 13:32:00 Test Item Value Reference Range Interpretation Comments Hct (test code = Hct) 24.1 42.0-54.0 [place] [address]-10-16 13:32:00 Test Item Value Reference Range Interpretation Comments MCV (test code = MCV) 83.3 80.0-94.0 [place] 922080-10-16 13:32:00 Test Item Value Reference Range Interpretation Comments MCH (test code = MCH) 29.0 pg 27.0-31.0 [facility] CenterVzlfwmnNVGJCCTDWE3556-54-97 13:32:00 Test Item Value Reference Range Interpretation Comments MCHC (test code = MCHC) 34.8 32.0-36.0 [facility] CenterAeusytxAJEQMWTDFW5038-99-79 13:32:00 Test Item Value Reference Range Interpretation Comments RDW (test code = RDW) 13.6 11.5-14.5 [facility] CenterVbnqwkjWBQIMXENGO9644-99-73 13:32:00 Test Item Value Reference Range Interpretation Comments Platelet (test code = Platelet) 221 133-450 [facility] CenterBuppcnfUOMJHCICUL2778-86-33 13:32:00 Test Item Value Reference Range Interpretation Comments MPV (test code = MPV) 6.6 7.4-10.4 [facility] CenterVocdpxmBEUXMMWSEH8532-99-26 13:32:00 Test Item Value Reference Range Interpretation Comments Segs (test code = Segs) 73.5 45.0-75.0 [facility] CenterZxoeiegTYACBSQQCP8338-60-41 13:32:00 Test Item Value Reference Range Interpretation Comments Lymphocytes (test code = Lymphocytes) 11.4 20.0-40.0 [facility] CenterTrnscjkOTTLOSOEFI9702-63-61 13:32:00 Test Item Value Reference Range Interpretation Comments Monocytes (test code = Monocytes) 8.7 2.0-12.0 [place] 922080-10-16 13:32:00 Test Item Value Reference Range Interpretation Comments Eosinophils (test code = 5.4 See_Comment [A utomated message] The Eosinophils) system which ge nerated this result tra nsmitted reference range : <=4.0. The reference r yared was not used to int erpret this result as normal/abnormal . [facility] CenterZqrzzkxQSGTREOXDF1407-90-82 13:32:00 Test Item Value Reference Range Interpretation Comments Basophils (test code = 1.0 See_Comment [Aut omated message] The Basophils) system which ge nerated this result tra nsmitted reference range : <=1.0. The reference r yared was not used to int erpret this result as normal/abnormal . [facility] CenterOxrylwgWRDMFHVHAD8311-47-96 13:32:00 Test Item Value Reference Range Interpretation Comments Neutrophils # (test code = Neutrophils 4.5 1.5-8.1 #) [facility] HospitalDjlzytoTOLSZUDUVR5114-84-00 13:32:00 Test Item Value Reference Range Interpretation Comments Lymphocytes # (test code = Lymphocytes 0.7 1.0-5.5 #) [facility] CenterKpkkurgBZLTRZSPRR2645-52-42 13:32:00 Test Item Value Reference Range Interpretation Comments Monocytes # (test code 0.5 See_Comment [Aut omated message] The = Monocytes #) system which generated this result tra nsmitted reference range : <=0.8. The reference r yared was not used to int erpret this result as normal/abnormal . [facility] CenterQxdfdwgSEFJVEVJUW6965-61-51 13:32:00 Test Item Value Reference Range Interpretation Comments Eosinophils # (test code 0.3 See_Comment [A utomated message] The = Eosinophils #) system whic h generated this result tra nsmitted reference range : <=0.5. The reference r yared was not used to int erpret this result as normal/abnormal . [facility] CenterGektdwyXRUXLYSVLL8786-81-00 13:32:00 Test Item Value Reference Range Interpretation Comments Basophils # (test code 0.1 See_Comment [Aut omated message] The = Basophils #) system which generated this result tra nsmitted reference range : <=0.2. The reference r yared was not used to int erpret this result as normal/abnormal . [facility] HospitalCARDIAC [id number] 13:32:00 Test Item Value Reference Range Interpretation Comments Troponin-I (test code 0.03 See_Comment [Auto mated message] The = Troponin-I) system which g enerated this result transmit emerson reference range : <=0.40. The reference r yared was not used to interpr et this result as erinn l/abnormal. [facility] HospitalPeeP [facility] [id number] 13:32:00 Test Item Value Reference Range Interpretation Comments Glucose Lvl (test code = Glucose Lvl) 101 70-99 [facility] HospitalYourListen.com [id number] 13:32:00 Test Item Value Reference Range Interpretation Comments BUN (test code = BUN) 25 7-22 [facility] HospitalPeeP [facility] [id number] 13:32:00 Test Item Value Reference Range Interpretation Comments Creatinine Lvl (test code = Creatinine 9.66 0.50-1.40 Lvl) [facility]2020-10-16 13:32:00 Test Item Value Reference Range Interpretation Comments Sodium Lvl (test code = Sodium Lvl) 132 135-145 [place] 124950-10-16 13:32:00 Test Item Value Reference Range Interpretation Comments Potassium Lvl (test code = Potassium 3.0 3.5-5.1 Lvl) [facility]2020-10-16 13:32:00 Test Item Value Reference Range Interpretation Comments Chloride Lvl (test code = Chloride Lvl) 91 95-109 [place] 124950-10-16 13:32:00 Test Item Value Reference Range Interpretation Comments CO2 (test code = CO2) 32 24-32 [place] 124950-10-16 13:32:00 Test Item Value Reference Range Interpretation Comments AGAP (test code = AGAP) 12.0 10.0-20.0 [place] 124950-10-16 13:32:00 Test Item Value Reference Range Interpretation Comments Calcium Lvl (test code = Calcium Lvl) 8.7 8.5-10.5 [place] 124950-10-16 13:32:00 Test Item Value Reference Range Interpretation Comments B/C Ratio (test code = B/C Ratio) 3 1 6-25 [place] [address]-10-16 13:32:00 Test Item Value Reference Range Interpretation Comments Total Protein (test code = Total 4.9 6.4-8.4 Protein) [facility]2020-10-16 13:32:00 Test Item Value Reference Range Interpretation Comments Albumin Lvl (test code = Albumin Lvl) 1.5 3.5-5.0 [place] 124950-10-16 13:32:00 Test Item Value Reference Range Interpretation Comments Globulin (test code = Globulin) 3.4 2.7-4.2 [place] 124950-10-16 13:32:00 Test Item Value Reference Range Interpretation Comments A/G Ratio (test code = A/G Ratio) 0.4 1 0.7-1.6 [place] [address]-10-16 13:32:00 Test Item Value Reference Range Interpretation Comments ALT (test code = ALT) 16 See_Comment [Auto mated message] The system which ge nerated this result transmit emerson reference range : <=65. The reference range was not used to interpr et this result as erinn l/abnormal. [facility] HospitalPeeP [facility] [id number] 13:32:00 Test Item Value Reference Range Interpretation Comments AST (test code = AST) 22 See_Comment [Auto mated message] The system which ge nerated this result transmit emerson reference range : <=37. The reference range was not used to interpr et this result as erinn l/abnormal. [facility]P [facility] [id number] 13:32:00 Test Item Value Reference Range Interpretation Comments Alk Phos (test code = Alk Phos) 88 39-136 [facility] [id number] 13:32:00 Test Item Value Reference Range Interpretation Comments Bili Total (test code = Bili Total) 0.5 0.2-1.3 [facility]YourListen.[facility] [id number] 13:32:00 Test Item Value Reference Range Interpretation Comments eGFR (test code = eGFR) 5 [facility] CenterYiirsrbPBCPJNBSAT5078-83-85 13:32:00 Test Item Value Reference Range Interpretation Comments WBC (test code = WBC) 6.2 3.7-10.4 [place] [address]-10-16 13:32:00 Test Item Value Reference Range Interpretation Comments RBC (test code = RBC) 2.89 4.70-6.10 [facility] HospitalMgrwrnwRLJVKESEXC3051-62-71 13:32:00 Test Item Value Reference Range Interpretation Comments Hgb (test code = Hgb) 8.4 14.0-18.0 [facility] HospitalQdpvnabYJFJEYKHAU2670-53-16 13:32:00 Test Item Value Reference Range Interpretation Comments Hct (test code = Hct) 24.1 42.0-54.0 [facility] HospitalMcmlebcULZMSWBHZX3675-72-67 13:32:00 Test Item Value Reference Range Interpretation Comments MCV (test code = MCV) 83.3 80.0-94.0 [place] [address]-10-16 13:32:00 Test Item Value Reference Range Interpretation Comments MCH (test code = MCH) 29.0 pg 27.0-31.0 [facility] HospitalDzmyqmeCYPXUJWPDE0220-48-74 13:32:00 Test Item Value Reference Range Interpretation Comments MCHC (test code = MCHC) 34.8 32.0-36.0 [place] 922080-10-16 13:32:00 Test Item Value Reference Range Interpretation Comments RDW (test code = RDW) 13.6 11.5-14.5 [place] 922080-10-16 13:32:00 Test Item Value Reference Range Interpretation Comments Platelet (test code = Platelet) 221 133-450 [facility] CenterFehuiozZOJYXXKUJX6935-33-37 13:32:00 Test Item Value Reference Range Interpretation Comments MPV (test code = MPV) 6.6 7.4-10.4 [place] 922080-10-16 13:32:00 Test Item Value Reference Range Interpretation Comments Segs (test code = Segs) 73.5 45.0-75.0 [place] 922080-10-16 13:32:00 Test Item Value Reference Range Interpretation Comments Lymphocytes (test code = Lymphocytes) 11.4 20.0-40.0 [place] 922080-10-16 13:32:00 Test Item Value Reference Range Interpretation Comments Monocytes (test code = Monocytes) 8.7 2.0-12.0 [facility] CenterXldjqbxLELFSDUKRZ8731-16-24 13:32:00 Test Item Value Reference Range Interpretation Comments Eosinophils (test code = 5.4 See_Comment [A utomated message] The Eosinophils) system which ge nerated this result tra nsmitted reference range : <=4.0. The reference r yared was not used to int erpret this result as normal/abnormal . [facility] CenterRyopvrnUAIPKKVPAJ0405-97-90 13:32:00 Test Item Value Reference Range Interpretation Comments Basophils (test code = 1.0 See_Comment [Aut omated message] The Basophils) system which ge nerated this result tra nsmitted reference range : <=1.0. The reference r yared was not used to int erpret this result as normal/abnormal . [facility] CenterNkfsrkmMBHETJWBGI7880-46-83 13:32:00 Test Item Value Reference Range Interpretation Comments Neutrophils # (test code = Neutrophils 4.5 1.5-8.1 #) [place] 922080-10-16 13:32:00 Test Item Value Reference Range Interpretation Comments Lymphocytes # (test code = Lymphocytes 0.7 1.0-5.5 #) [facility] HospitalFzwdanuFODRSYEMDQ4001-91-12 13:32:00 Test Item Value Reference Range Interpretation Comments Monocytes # (test code 0.5 See_Comment [Aut omated message] The = Monocytes #) system which generated this result tra nsmitted reference range : <=0.8. The reference r yared was not used to int erpret this result as normal/abnormal . [facility] HospitalXhlaeheNYQYHLQONT8410-89-26 13:32:00 Test Item Value Reference Range Interpretation Comments Eosinophils # (test code 0.3 See_Comment [A utomated message] The = Eosinophils #) system whic h generated this result tra nsmitted reference range : <=0.5. The reference r yared was not used to int erpret this result as normal/abnormal . [facility] HospitalIhvamjjNCBQXABKCZ1395-76-73 13:32:00 Test Item Value Reference Range Interpretation Comments Basophils # (test code 0.1 See_Comment [Aut omated message] The = Basophils #) system which generated this result tra nsmitted reference range : <=0.2. The reference r yared was not used to int erpret this result as normal/abnormal . [facility] HospitalCARDIAC [id number] 13:32:00 Test Item Value Reference Range Interpretation Comments Troponin-I (test code 0.03 See_Comment [Auto mated message] The = Troponin-I) system which g enerated this result transmit emerson reference range : <=0.40. The reference r yared was not used to interpr et this result as erinn l/abnormal. [facility] [employer] [id number] 13:32:00 Test Item Value Reference Range Interpretation Comments Glucose Lvl (test code = Glucose Lvl) 101 70-99 [facility] [employer] [id number] 13:32:00 Test Item Value Reference Range Interpretation Comments BUN (test code = BUN) 25 7-22 [facility] [employer] [id number] 13:32:00 Test Item Value Reference Range Interpretation Comments Creatinine Lvl (test code = Creatinine 9.66 0.50-1.40 Lvl) [facility] [employer] [id number] 13:32:00 Test Item Value Reference Range Interpretation Comments Sodium Lvl (test code = Sodium Lvl) 132 135-145 [facility] HospitalCourseloadATRIUM [facility] MED[facility] [id number] 13:32:00 Test Item Value Reference Range Interpretation Comments Potassium Lvl (test code = Potassium 3.0 3.5-5.1 Lvl) [facility] HospitalCourseloadZACHARY VILLE [id number] 13:32:00 Test Item Value Reference Range Interpretation Comments Chloride Lvl (test code = Chloride Lvl) 91 95-109 [facility] HospitalCourseloadZACHARY VILLE [id number] 13:32:00 Test Item Value Reference Range Interpretation Comments CO2 (test code = CO2) 32 24-32 [facility] HospitalCourseloadATRI[facility] WIL[facility] MEDICAL [id number] 13:32:00 Test Item Value Reference Range Interpretation Comments AGAP (test code = AGAP) 12.0 10.0-20.0 [facility] HospitalPeeP [facility] [id number] 13:32:00 Test Item Value Reference Range Interpretation Comments Calcium Lvl (test code = Calcium Lvl) 8.7 8.5-10.5 [facility] HospitalPee[facility] [id number] 13:32:00 Test Item Value Reference Range Interpretation Comments B/C Ratio (test code = B/C Ratio) 3 1 6-25 [place] [address]-10-16 13:32:00 Test Item Value Reference Range Interpretation Comments Total Protein (test code = Total 4.9 6.4-8.4 Protein) [facility]2020-10-16 13:32:00 Test Item Value Reference Range Interpretation Comments Albumin Lvl (test code = Albumin Lvl) 1.5 3.5-5.0 [facility] HospitalP[facility] [id number] 13:32:00 Test Item Value Reference Range Interpretation Comments Globulin (test code = Globulin) 3.4 2.7-4.2 [place] [address]-10-16 13:32:00 Test Item Value Reference Range Interpretation Comments A/G Ratio (test code = A/G Ratio) 0.4 1 0.7-1.6 [place] [address]-10-16 13:32:00 Test Item Value Reference Range Interpretation Comments ALT (test code = ALT) 16 See_Comment [Auto mated message] The system which ge nerated this result transmit emerson reference range : <=65. The reference range was not used to interpr et this result as erinn l/abnormal. [facility]2020-10-16 13:32:00 Test Item Value Reference Range Interpretation Comments AST (test code = AST) 22 See_Comment [Auto mated message] The system which ge nerated this result transmit emerson reference range : <=37. The reference range was not used to interpr et this result as erinn l/abnormal. [place] 124950-10-16 13:32:00 Test Item Value Reference Range Interpretation Comments Alk Phos (test code = Alk Phos) 88 39-136 [facility]Your[facility] [id number] 13:32:00 Test Item Value Reference Range Interpretation Comments Bili Total (test code = Bili Total) 0.5 0.2-1.3 [facility] HospitalYourListen.[facility] [id number] 13:32:00 Test Item Value Reference Range Interpretation Comments eGFR (test code = eGFR) 5 [facility] CenterInrjnbfWXHEYLNILF3057-41-39 13:32:00 Test Item Value Reference Range Interpretation Comments WBC (test code = WBC) 6.2 3.7-10.4 [place] 922080-10-16 13:32:00 Test Item Value Reference Range Interpretation Comments RBC (test code = RBC) 2.89 4.70-6.10 [place] [address]-10-16 13:32:00 Test Item Value Reference Range Interpretation Comments Hgb (test code = Hgb) 8.4 14.0-18.0 [place] [address]-10-16 13:32:00 Test Item Value Reference Range Interpretation Comments Hct (test code = Hct) 24.1 42.0-54.0 [place] [address]-10-16 13:32:00 Test Item Value Reference Range Interpretation Comments MCV (test code = MCV) 83.3 80.0-94.0 [place] [address]-10-16 13:32:00 Test Item Value Reference Range Interpretation Comments MCH (test code = MCH) 29.0 pg 27.0-31.0 [place] [address]-10-16 13:32:00 Test Item Value Reference Range Interpretation Comments MCHC (test code = MCHC) 34.8 32.0-36.0 [place] [address]-10-16 13:32:00 Test Item Value Reference Range Interpretation Comments RDW (test code = RDW) 13.6 11.5-14.5 [place] 922080-10-16 13:32:00 Test Item Value Reference Range Interpretation Comments Platelet (test code = Platelet) 221 133-450 [place] 922080-10-16 13:32:00 Test Item Value Reference Range Interpretation Comments MPV (test code = MPV) 6.6 7.4-10.4 [place] 922080-10-16 13:32:00 Test Item Value Reference Range Interpretation Comments Segs (test code = Segs) 73.5 45.0-75.0 [place] 922080-10-16 13:32:00 Test Item Value Reference Range Interpretation Comments Lymphocytes (test code = Lymphocytes) 11.4 20.0-40.0 [place] 922080-10-16 13:32:00 Test Item Value Reference Range Interpretation Comments Monocytes (test code = Monocytes) 8.7 2.0-12.0 [place] 922080-10-16 13:32:00 Test Item Value Reference Range Interpretation Comments Eosinophils (test code = 5.4 See_Comment [A utomated message] The Eosinophils) system which ge nerated this result tra nsmitted reference range : <=4.0. The reference r yared was not used to int erpret this result as normal/abnormal . [place] [address]-10-16 13:32:00 Test Item Value Reference Range Interpretation Comments Basophils (test code = 1.0 See_Comment [Aut omated message] The Basophils) system which ge nerated this result tra nsmitted reference range : <=1.0. The reference r yared was not used to int erpret this result as normal/abnormal . [facility] CenterYawppraBVMLOGYYPN6529-51-35 13:32:00 Test Item Value Reference Range Interpretation Comments Neutrophils # (test code = Neutrophils 4.5 1.5-8.1 #) [place] [address]-10-16 13:32:00 Test Item Value Reference Range Interpretation Comments Lymphocytes # (test code = Lymphocytes 0.7 1.0-5.5 #) [place] 922080-10-16 13:32:00 Test Item Value Reference Range Interpretation Comments Monocytes # (test code 0.5 See_Comment [Aut omated message] The = Monocytes #) system which generated this result tra nsmitted reference range : <=0.8. The reference r yared was not used to int erpret this result as normal/abnormal . [facility] HospitalPrrchutDBKCXLYLAP3195-40-41 13:32:00 Test Item Value Reference Range Interpretation Comments Eosinophils # (test code 0.3 See_Comment [A utomated message] The = Eosinophils #) system whic h generated this result tra nsmitted reference range : <=0.5. The reference r yared was not used to int erpret this result as normal/abnormal . [facility] HospitalQgcgobxJGAVEHNKHM0950-17-61 13:32:00 Test Item Value Reference Range Interpretation Comments Basophils # (test code 0.1 See_Comment [Aut omated message] The = Basophils #) system which generated this result tra nsmitted reference range : <=0.2. The reference r yared was not used to int erpret this result as normal/abnormal . [facility] HospitalCARDIAC [id number] 13:32:00 Test Item Value Reference Range Interpretation Comments Troponin-I (test code 0.03 See_Comment [Auto mated message] The = Troponin-I) system which g enerated this result transmit emerson reference range : <=0.40. The reference r yared was not used to interpr et this result as erinn l/abnormal. [facility]PeeP [facility] [id number] 13:32:00 Test Item Value Reference Range Interpretation Comments Glucose Lvl (test code = Glucose Lvl) 101 70-99 [facility] [id number] 13:32:00 Test Item Value Reference Range Interpretation Comments BUN (test code = BUN) 25 7-22 [facility] [employer] [id number] 13:32:00 Test Item Value Reference Range Interpretation Comments Creatinine Lvl (test code = Creatinine 9.66 0.50-1.40 Lvl) [facility] [employer] [id number] 13:32:00 Test Item Value Reference Range Interpretation Comments Sodium Lvl (test code = Sodium Lvl) 132 135-145 [facility] [id number] 13:32:00 Test Item Value Reference Range Interpretation Comments Potassium Lvl (test code = Potassium 3.0 3.5-5.1 Lvl) [facility] [employer] [id number] 13:32:00 Test Item Value Reference Range Interpretation Comments Chloride Lvl (test code = Chloride Lvl) 91 95-109 [place] [id number] 13:32:00 Test Item Value Reference Range Interpretation Comments CO2 (test code = CO2) 32 24-32 [place] [id number] 13:32:00 Test Item Value Reference Range Interpretation Comments AGAP (test code = AGAP) 12.0 10.0-20.0 [place] [id number] 13:32:00 Test Item Value Reference Range Interpretation Comments Calcium Lvl (test code = Calcium Lvl) 8.7 8.5-10.5 [place] [id number] 13:32:00 Test Item Value Reference Range Interpretation Comments B/C Ratio (test code = B/C Ratio) 3 1 6-25 [place] [id number] 13:32:00 Test Item Value Reference Range Interpretation Comments Total Protein (test code = Total 4.9 6.4-8.4 Protein) [place] [id number] 13:32:00 Test Item Value Reference Range Interpretation Comments Albumin Lvl (test code = Albumin Lvl) 1.5 3.5-5.0 [place] [address]-10-16 13:32:00 Test Item Value Reference Range Interpretation Comments Globulin (test code = Globulin) 3.4 2.7-4.2 [place] [address]-10-16 13:32:00 Test Item Value Reference Range Interpretation Comments A/G Ratio (test code = A/G Ratio) 0.4 1 0.7-1.6 [place] [address]-10-16 13:32:00 Test Item Value Reference Range Interpretation Comments ALT (test code = ALT) 16 See_Comment [Auto mated message] The system which ge nerated this result transmit emerson reference range : <=65. The reference range was not used to interpr et this result as erinn l/abnormal. [place] [id number] 13:32:00 Test Item Value Reference Range Interpretation Comments AST (test code = AST) 22 See_Comment [Auto mated message] The system which ge nerated this result transmit emerson reference range : <=37. The reference range was not used to interpr et this result as erinn l/abnormal. [facility] [id number] 13:32:00 Test Item Value Reference Range Interpretation Comments Alk Phos (test code = Alk Phos) 88 39-136 [facility]2020-10-16 13:32:00 Test Item Value Reference Range Interpretation Comments Bili Total (test code = Bili Total) 0.5 0.2-1.3 [facility]2020-10-16 13:32:00 Test Item Value Reference Range Interpretation Comments eGFR (test code = eGFR) 5 [id number] 13:32:00 Test Item Value Reference Range Interpretation Comments WBC (test code = WBC) 6.2 3.7-10.4 [facility] CenterXnzjdpgYOBXUAVPDW0076-13-02 13:32:00 Test Item Value Reference Range Interpretation Comments RBC (test code = RBC) 2.89 4.70-6.10 [facility] [id number] 13:32:00 Test Item Value Reference Range Interpretation Comments Hgb (test code = Hgb) 8.4 14.0-18.0 [facility] [id number] 13:32:00 Test Item Value Reference Range Interpretation Comments Hct (test code = Hct) 24.1 42.0-54.0 [facility] [id number] 13:32:00 Test Item Value Reference Range Interpretation Comments MCV (test code = MCV) 83.3 80.0-94.0 [facility] C[id number] 13:32:00 Test Item Value Reference Range Interpretation Comments MCH (test code = MCH) 29.0 pg 27.0-31.0 [facility] [id number] 13:32:00 Test Item Value Reference Range Interpretation Comments MCHC (test code = MCHC) 34.8 32.0-36.0 [facility] CenterOfuirzuHCULSMMTHF4026-43-21 13:32:00 Test Item Value Reference Range Interpretation Comments RDW (test code = RDW) 13.6 11.5-14.5 [facility] CenterPqwmktnFSNDYSXLYS6408-58-50 13:32:00 Test Item Value Reference Range Interpretation Comments Platelet (test code = Platelet) 221 133-450 [facility] CenterVxhhyqjQZANORFBUF9701-00-05 13:32:00 Test Item Value Reference Range Interpretation Comments MPV (test code = MPV) 6.6 7.4-10.4 [place] [id number] 13:32:00 Test Item Value Reference Range Interpretation Comments Segs (test code = Segs) 73.5 45.0-75.0 [place] [id number] 13:32:00 Test Item Value Reference Range Interpretation Comments Lymphocytes (test code = Lymphocytes) 11.4 20.0-40.0 [place] [id number] 13:32:00 Test Item Value Reference Range Interpretation Comments Monocytes (test code = Monocytes) 8.7 2.0-12.0 [facility] [id number] 13:32:00 Test Item Value Reference Range Interpretation Comments Eosinophils (test code = 5.4 See_Comment [A utomated message] The Eosinophils) system which ge nerated this result tra nsmitted reference range : <=4.0. The reference r yared was not used to int erpret this result as normal/abnormal . [facility] CenterJpxuqszPESOHCPYAJ1041-14-23 13:32:00 Test Item Value Reference Range Interpretation Comments Basophils (test code = 1.0 See_Comment [Aut omated message] The Basophils) system which ge nerated this result tra nsmitted reference range : <=1.0. The reference r yared was not used to int erpret this result as normal/abnormal . [place] [id number] 13:32:00 Test Item Value Reference Range Interpretation Comments Neutrophils # (test code = Neutrophils 4.5 1.5-8.1 #) [facility] CenterBfmkavmTOZMWKPFYZ7857-60-93 13:32:00 Test Item Value Reference Range Interpretation Comments Lymphocytes # (test code = Lymphocytes 0.7 1.0-5.5 #) [place] [id number] 13:32:00 Test Item Value Reference Range Interpretation Comments Monocytes # (test code 0.5 See_Comment [Aut omated message] The = Monocytes #) system which generated this result tra nsmitted reference range : <=0.8. The reference r yared was not used to int erpret this result as normal/abnormal . [place] [id number] 13:32:00 Test Item Value Reference Range Interpretation Comments Eosinophils # (test code 0.3 See_Comment [A utomated message] The = Eosinophils #) system whic h generated this result tra nsmitted reference range : <=0.5. The reference r yared was not used to int erpret this result as normal/abnormal . [facility] CenterCvjzzsxTLJIFGWSTM6015-00-10 13:32:00 Test Item Value Reference Range Interpretation Comments Basophils # (test code 0.1 See_Comment [Aut omated message] The = Basophils #) system which generated this result tra nsmitted reference range : <=0.2. The reference r yared was not used to int erpret this result as normal/abnormal . [facility]2020-10-07 08:13:00 Test Item Value Reference Range Interpretation Comments Glucose Lvl (test code = Glucose Lvl) 125 70-99 [place] 124950-10-07 08:13:00 Test Item Value Reference Range Interpretation Comments BUN (test code = BUN) 26 7-22 [place] 124950-10-07 08:13:00 Test Item Value Reference Range Interpretation Comments Creatinine Lvl (test code = Creatinine 9.23 0.50-1.40 Lvl) [facility]2020-10-07 08:13:00 Test Item Value Reference Range Interpretation Comments Sodium Lvl (test code = Sodium Lvl) 135 135-145 [facility] [id number] 08:13:00 Test Item Value Reference Range Interpretation Comments Potassium Lvl (test code = Potassium 3.8 3.5-5.1 Lvl) [facility]2020-10-07 08:13:00 Test Item Value Reference Range Interpretation Comments Chloride Lvl (test code = Chloride Lvl) 97 95-109 [place] 124950-10-07 08:13:00 Test Item Value Reference Range Interpretation Comments CO2 (test code = CO2) 28 24-32 [facility] [id number] 08:13:00 Test Item Value Reference Range Interpretation Comments Calcium Lvl (test code = Calcium Lvl) 9.0 8.5-10.5 [facility] [id number] 08:13:00 Test Item Value Reference Range Interpretation Comments AGAP (test code = AGAP) 13.8 10.0-20.0 [facility]2020-10-07 08:13:00 Test Item Value Reference Range Interpretation Comments eGFR (test code = eGFR) 6 [facility]2020-10-07 08:13:00 Test Item Value Reference Range Interpretation Comments Glucose Lvl (test code = Glucose Lvl) 125 70-99 [place] 124950-10-07 08:13:00 Test Item Value Reference Range Interpretation Comments BUN (test code = BUN) 26 7-22 [facility]2020-10-07 08:13:00 Test Item Value Reference Range Interpretation Comments Creatinine Lvl (test code = Creatinine 9.23 0.50-1.40 Lvl) [facility]2020-10-07 08:13:00 Test Item Value Reference Range Interpretation Comments Sodium Lvl (test code = Sodium Lvl) 135 135-145 [facility]2020-10-07 08:13:00 Test Item Value Reference Range Interpretation Comments Potassium Lvl (test code = Potassium 3.8 3.5-5.1 Lvl) [facility]2020-10-07 08:13:00 Test Item Value Reference Range Interpretation Comments Chloride Lvl (test code = Chloride Lvl) 97 95-109 [facility]2020-10-07 08:13:00 Test Item Value Reference Range Interpretation Comments CO2 (test code = CO2) 28 24-32 [facility]2020-10-07 08:13:00 Test Item Value Reference Range Interpretation Comments Calcium Lvl (test code = Calcium Lvl) 9.0 8.5-10.5 [facility]2020-10-07 08:13:00 Test Item Value Reference Range Interpretation Comments AGAP (test code = AGAP) 13.8 10.0-20.0 [facility]2020-10-07 08:13:00 Test Item Value Reference Range Interpretation Comments eGFR (test code = eGFR) 6 [facility]2020-10-07 08:13:00 Test Item Value Reference Range Interpretation Comments Glucose Lvl (test code = Glucose Lvl) 125 70-99 [facility]2020-10-07 08:13:00 Test Item Value Reference Range Interpretation Comments BUN (test code = BUN) 26 7-22 [facility]2020-10-07 08:13:00 Test Item Value Reference Range Interpretation Comments Creatinine Lvl (test code = Creatinine 9.23 0.50-1.40 Lvl) [facility]2020-10-07 08:13:00 Test Item Value Reference Range Interpretation Comments Sodium Lvl (test code = Sodium Lvl) 135 135-145 [place] 124950-10-07 08:13:00 Test Item Value Reference Range Interpretation Comments Potassium Lvl (test code = Potassium 3.8 3.5-5.1 Lvl) [facility]2020-10-07 08:13:00 Test Item Value Reference Range Interpretation Comments Chloride Lvl (test code = Chloride Lvl) 97 95-109 [facility]2020-10-07 08:13:00 Test Item Value Reference Range Interpretation Comments CO2 (test code = CO2) 28 24-32 [facility]2020-10-07 08:13:00 Test Item Value Reference Range Interpretation Comments Calcium Lvl (test code = Calcium Lvl) 9.0 8.5-10.5 [facility]2020-10-07 08:13:00 Test Item Value Reference Range Interpretation Comments AGAP (test code = AGAP) 13.8 10.0-20.0 [facility]2020-10-07 08:13:00 Test Item Value Reference Range Interpretation Comments eGFR (test code = eGFR) 6 [facility]2020-10-07 08:13:00 Test Item Value Reference Range Interpretation Comments Glucose Lvl (test code = Glucose Lvl) 125 70-99 [facility]2020-10-07 08:13:00 Test Item Value Reference Range Interpretation Comments BUN (test code = BUN) 26 7-22 [facility]2020-10-07 08:13:00 Test Item Value Reference Range Interpretation Comments Creatinine Lvl (test code = Creatinine 9.23 0.50-1.40 Lvl) [facility]2020-10-07 08:13:00 Test Item Value Reference Range Interpretation Comments Sodium Lvl (test code = Sodium Lvl) 135 135-145 [facility]2020-10-07 08:13:00 Test Item Value Reference Range Interpretation Comments Potassium Lvl (test code = Potassium 3.8 3.5-5.1 Lvl) [facility]2020-10-07 08:13:00 Test Item Value Reference Range Interpretation Comments Chloride Lvl (test code = Chloride Lvl) 97 95-109 [facility] [id number] 08:13:00 Test Item Value Reference Range Interpretation Comments CO2 (test code = CO2) 28 24-32 [facility] [id number] 08:13:00 Test Item Value Reference Range Interpretation Comments Calcium Lvl (test code = Calcium Lvl) 9.0 8.5-10.5 [facility] [id number] 08:13:00 Test Item Value Reference Range Interpretation Comments AGAP (test code = AGAP) 13.8 10.0-20.0 [facility] [id number] 08:13:00 Test Item Value Reference Range Interpretation Comments eGFR (test code = eGFR) 6 [facility] [id number] 22:34:00 Test Item Value Reference Range Interpretation Comments C difficile DNA (test Negative (07/14/20 5:34 code = C difficile DNA) PM) [facility] [id number] 22:34:00 Test Item Value Reference Range Interpretation Comments Fecal Leukocyte (test None Seen (07/14/20 code = Fecal Leukocyte) 5:34 PM) [facility]MO[facility] [id number] 22:34:00 Test Item Value Reference Range Interpretation Comments C difficile DNA (test Negative (07/14/20 5:34 code = C difficile DNA) PM) [facility] [id number] 22:34:00 Test Item Value Reference Range Interpretation Comments Fecal Leukocyte (test None Seen (07/14/20 code = Fecal Leukocyte) 5:34 PM) [facility] [id number] 22:34:00 Test Item Value Reference Range Interpretation Comments C difficile DNA (test Negative (07/14/20 5:34 code = C difficile DNA) PM) [facility] [id number] 22:34:00 Test Item Value Reference Range Interpretation Comments Fecal Leukocyte (test None Seen (07/14/20 code = Fecal Leukocyte) 5:34 PM) [facility] [id number] 22:34:00 Test Item Value Reference Range Interpretation Comments C difficile DNA (test Negative (07/14/20 5:34 code = C difficile DNA) PM) [facility] AND [id number] 22:34:00 Test Item Value Reference Range Interpretation Comments Fecal Leukocyte (test None Seen (07/14/20 code = Fecal Leukocyte) 5:34 PM) [facility]2020-10-06 08:37:00 Test Item Value Reference Range Interpretation Comments Glucose Lvl (test code = Glucose Lvl) 125 70-99 [facility]2020-10-06 08:37:00 Test Item Value Reference Range Interpretation Comments BUN (test code = BUN) 30 7-22 [facility]2020-10-06 08:37:00 Test Item Value Reference Range Interpretation Comments Creatinine Lvl (test code = Creatinine 9.56 0.50-1.40 Lvl) [facility]2020-10-06 08:37:00 Test Item Value Reference Range Interpretation Comments Sodium Lvl (test code = Sodium Lvl) 136 135-145 [facility]2020-10-06 08:37:00 Test Item Value Reference Range Interpretation Comments Potassium Lvl (test code = Potassium 3.4 3.5-5.1 Lvl) [facility]2020-10-06 08:37:00 Test Item Value Reference Range Interpretation Comments Chloride Lvl (test code = Chloride Lvl) 99 95-109 [facility]2020-10-06 08:37:00 Test Item Value Reference Range Interpretation Comments CO2 (test code = CO2) 28 24-32 [facility]2020-10-06 08:37:00 Test Item Value Reference Range Interpretation Comments Calcium Lvl (test code = Calcium Lvl) 8.6 8.5-10.5 [facility]2020-10-06 08:37:00 Test Item Value Reference Range Interpretation Comments AGAP (test code = AGAP) 12.4 10.0-20.0 [facility]2020-10-06 08:37:00 Test Item Value Reference Range Interpretation Comments eGFR (test code = eGFR) 5 [facility]2020-10-06 08:37:00 Test Item Value Reference Range Interpretation Comments Glucose Lvl (test code = Glucose Lvl) 125 70-99 [facility]2020-10-06 08:37:00 Test Item Value Reference Range Interpretation Comments BUN (test code = BUN) 30 7-22 [facility]2020-10-06 08:37:00 Test Item Value Reference Range Interpretation Comments Creatinine Lvl (test code = Creatinine 9.56 0.50-1.40 Lvl) [facility]2020-10-06 08:37:00 Test Item Value Reference Range Interpretation Comments Sodium Lvl (test code = Sodium Lvl) 136 135-145 [facility]2020-10-06 08:37:00 Test Item Value Reference Range Interpretation Comments Potassium Lvl (test code = Potassium 3.4 3.5-5.1 Lvl) [facility]2020-10-06 08:37:00 Test Item Value Reference Range Interpretation Comments Chloride Lvl (test code = Chloride Lvl) 99 95-109 [facility]2020-10-06 08:37:00 Test Item Value Reference Range Interpretation Comments CO2 (test code = CO2) 28 24-32 [facility]2020-10-06 08:37:00 Test Item Value Reference Range Interpretation Comments Calcium Lvl (test code = Calcium Lvl) 8.6 8.5-10.5 [facility]2020-10-06 08:37:00 Test Item Value Reference Range Interpretation Comments AGAP (test code = AGAP) 12.4 10.0-20.0 [facility]2020-10-06 08:37:00 Test Item Value Reference Range Interpretation Comments eGFR (test code = eGFR) 5 [facility]2020-10-06 08:37:00 Test Item Value Reference Range Interpretation Comments Glucose Lvl (test code = Glucose Lvl) 125 70-99 [place] 124950-10-06 08:37:00 Test Item Value Reference Range Interpretation Comments BUN (test code = BUN) 30 7-22 [facility]2020-10-06 08:37:00 Test Item Value Reference Range Interpretation Comments Creatinine Lvl (test code = Creatinine 9.56 0.50-1.40 Lvl) [facility]2020-10-06 08:37:00 Test Item Value Reference Range Interpretation Comments Sodium Lvl (test code = Sodium Lvl) 136 135-145 [place] 124950-10-06 08:37:00 Test Item Value Reference Range Interpretation Comments Potassium Lvl (test code = Potassium 3.4 3.5-5.1 Lvl) [facility]2020-10-06 08:37:00 Test Item Value Reference Range Interpretation Comments Chloride Lvl (test code = Chloride Lvl) 99 95-109 [facility]2020-10-06 08:37:00 Test Item Value Reference Range Interpretation Comments CO2 (test code = CO2) 28 -32 [facility]2020-10-06 08:37:00 Test Item Value Reference Range Interpretation Comments Calcium Lvl (test code = Calcium Lvl) 8.6 8.5-10.5 [facility]2020-10-06 08:37:00 Test Item Value Reference Range Interpretation Comments AGAP (test code = AGAP) 12.4 10.0-20.0 [facility]2020-10-06 08:37:00 Test Item Value Reference Range Interpretation Comments eGFR (test code = eGFR) 5 [facility]2020-10-06 08:37:00 Test Item Value Reference Range Interpretation Comments Glucose Lvl (test code = Glucose Lvl) 125 70-99 [facility]2020-10-06 08:37:00 Test Item Value Reference Range Interpretation Comments BUN (test code = BUN) 30 7-22 [facility]2020-10-06 08:37:00 Test Item Value Reference Range Interpretation Comments Creatinine Lvl (test code = Creatinine 9.56 0.50-1.40 Lvl) [facility]2020-10-06 08:37:00 Test Item Value Reference Range Interpretation Comments Sodium Lvl (test code = Sodium Lvl) 136 135-145 [facility]2020-10-06 08:37:00 Test Item Value Reference Range Interpretation Comments Potassium Lvl (test code = Potassium 3.4 3.5-5.1 Lvl) [facility]2020-10-06 08:37:00 Test Item Value Reference Range Interpretation Comments Chloride Lvl (test code = Chloride Lvl) 99 95-109 [facility]2020-10-06 08:37:00 Test Item Value Reference Range Interpretation Comments CO2 (test code = CO2) 28 24-32 [place] 124950-10-06 08:37:00 Test Item Value Reference Range Interpretation Comments Calcium Lvl (test code = Calcium Lvl) 8.6 8.5-10.5 [facility] [id number] 08:37:00 Test Item Value Reference Range Interpretation Comments AGAP (test code = AGAP) 12.4 10.0-20.0 [facility] [id number] 08:37:00 Test Item Value Reference Range Interpretation Comments eGFR (test code = eGFR) 5 [facility] [id number] 01:30:00 Test Item Value Reference Range Interpretation Comments Color BF (test code = Light Yellow (07/13/20 Color BF) 8:30 PM) [facility] [id number] 01:30:00 Test Item Value Reference Range Interpretation Comments Clarity BF (test code = Clear (07/13/20 8:30 Clarity BF) PM) [facility] [id number] 01:30:00 Test Item Value Reference Range Interpretation Comments Supernat BF (test code Colorless (07/13/20 8:30 = Supernat BF) PM) [facility] [id number] 01:30:00 Test Item Value Reference Range Interpretation Comments Nucleated Cells BF (test code = 267 Nucleated Cells BF) [facility] [id number] 01:30:00 Test Item Value Reference Range Interpretation Comments RBC BF (test code = RBC BF) 365 [facility] [id number] 01:30:00 Test Item Value Reference Range Interpretation Comments CellCnt BF Type (test Periton (07/13/20 8:30 code = CellCnt BF Type) PM) [facility] [id number] 01:30:00 Test Item Value Reference Range Interpretation Comments Neutrophils BF (test code = Neutrophils 23 BF) [facility] [id number] 01:30:00 Test Item Value Reference Range Interpretation Comments Lymph BF (test code = Lymph BF) 16 [facility] [id number] 01:30:00 Test Item Value Reference Range Interpretation Comments Macrophage BF (test code = Macrophage 53 BF) [facility] [id number] 01:30:00 Test Item Value Reference Range Interpretation Comments Eos BF (test code = Eos BF) 6 [facility] [id number] 01:30:00 Test Item Value Reference Range Interpretation Comments Meso BF (test code = Meso BF) 2 [facility] HospitalGram Stain [id number] 01:30:00 Test Item Value Reference Range Interpretation Comments Gram Stain Report Few WBC's No Organisms (test code = Gram Seen Stain Report) [facility] HospitalCulture: Aspirate/Body Fluid/[id number] 01:30:00 Test Item Value Reference Range Interpretation Comments Culture: Aspirate/Body Fluid/Tissue No Growth (test code = Culture: Aspirate/Body Fluid/Tissue) [facility]2020-10-06 01:30:00 Test Item Value Reference Range Interpretation Comments Color BF (test code = Light Yellow (07/13/20 Color BF) 8:30 PM) [facility]2020-10-06 01:30:00 Test Item Value Reference Range Interpretation Comments Clarity BF (test code = Clear (07/13/20 8:30 Clarity BF) PM) [facility]2020-10-06 01:30:00 Test Item Value Reference Range Interpretation Comments Supernat BF (test code Colorless (07/13/20 8:30 = Supernat BF) PM) [facility]2020-10-06 01:30:00 Test Item Value Reference Range Interpretation Comments Nucleated Cells BF (test code = 267 Nucleated Cells BF) [facility]2020-10-06 01:30:00 Test Item Value Reference Range Interpretation Comments RBC BF (test code = RBC BF) 365 [facility]2020-10-06 01:30:00 Test Item Value Reference Range Interpretation Comments CellCnt BF Type (test Periton (07/13/20 8:30 code = CellCnt BF Type) PM) [facility]2020-10-06 01:30:00 Test Item Value Reference Range Interpretation Comments Neutrophils BF (test code = Neutrophils 23 BF) [facility]2020-10-06 01:30:00 Test Item Value Reference Range Interpretation Comments Lymph BF (test code = Lymph BF) 16 [facility]2020-10-06 01:30:00 Test Item Value Reference Range Interpretation Comments Macrophage BF (test code = Macrophage 53 BF) [facility]2020-10-06 01:30:00 Test Item Value Reference Range Interpretation Comments Eos BF (test code = Eos BF) 6 [facility] [id number] 01:30:00 Test Item Value Reference Range Interpretation Comments Meso BF (test code = Meso BF) 2 [facility] [id number] 01:30:00 Test Item Value Reference Range Interpretation Comments Gram Stain Report Few WBC's No Organisms (test code = Gram Seen Stain Report) [facility] Aspirate/Body Fluid/[id number] 01:30:00 Test Item Value Reference Range Interpretation Comments Culture: Aspirate/Body Fluid/Tissue No Growth (test code = Culture: Aspirate/Body Fluid/Tissue) [facility]2020-10-06 01:30:00 Test Item Value Reference Range Interpretation Comments Color BF (test code = Light Yellow (07/13/20 Color BF) 8:30 PM) [facility]2020-10-06 01:30:00 Test Item Value Reference Range Interpretation Comments Clarity BF (test code = Clear (07/13/20 8:30 Clarity BF) PM) [facility]2020-10-06 01:30:00 Test Item Value Reference Range Interpretation Comments Supernat BF (test code Colorless (07/13/20 8:30 = Supernat BF) PM) [facility]2020-10-06 01:30:00 Test Item Value Reference Range Interpretation Comments Nucleated Cells BF (test code = 267 Nucleated Cells BF) [facility]2020-10-06 01:30:00 Test Item Value Reference Range Interpretation Comments RBC BF (test code = RBC BF) 365 [facility]2020-10-06 01:30:00 Test Item Value Reference Range Interpretation Comments CellCnt BF Type (test Periton (07/13/20 8:30 code = CellCnt BF Type) PM) [facility]2020-10-06 01:30:00 Test Item Value Reference Range Interpretation Comments Neutrophils BF (test code = Neutrophils 23 BF) [facility]2020-10-06 01:30:00 Test Item Value Reference Range Interpretation Comments Lymph BF (test code = Lymph BF) 16 [facility]2020-10-06 01:30:00 Test Item Value Reference Range Interpretation Comments Macrophage BF (test code = Macrophage 53 BF) [facility]2020-10-06 01:30:00 Test Item Value Reference Range Interpretation Comments Eos BF (test code = Eos BF) 6 [facility] [id number] 01:30:00 Test Item Value Reference Range Interpretation Comments Meso BF (test code = Meso BF) 2 [facility] [id number] 01:30:00 Test Item Value Reference Range Interpretation Comments Gram Stain Report Few WBC's No Organisms (test code = Gram Seen Stain Report) [facility] Aspirate/Body Fluid/[id number] 01:30:00 Test Item Value Reference Range Interpretation Comments Culture: Aspirate/Body Fluid/Tissue No Growth (test code = Culture: Aspirate/Body Fluid/Tissue) [facility]2020-10-06 01:30:00 Test Item Value Reference Range Interpretation Comments Color BF (test code = Light Yellow (07/13/20 Color BF) 8:30 PM) [facility]2020-10-06 01:30:00 Test Item Value Reference Range Interpretation Comments Clarity BF (test code = Clear (07/13/20 8:30 Clarity BF) PM) [facility]2020-10-06 01:30:00 Test Item Value Reference Range Interpretation Comments Supernat BF (test code Colorless (07/13/20 8:30 = Supernat BF) PM) [facility]2020-10-06 01:30:00 Test Item Value Reference Range Interpretation Comments Nucleated Cells BF (test code = 267 Nucleated Cells BF) [facility]2020-10-06 01:30:00 Test Item Value Reference Range Interpretation Comments RBC BF (test code = RBC BF) 365 [facility]2020-10-06 01:30:00 Test Item Value Reference Range Interpretation Comments CellCnt BF Type (test Periton (07/13/20 8:30 code = CellCnt BF Type) PM) [facility]2020-10-06 01:30:00 Test Item Value Reference Range Interpretation Comments Neutrophils BF (test code = Neutrophils 23 BF) [facility]2020-10-06 01:30:00 Test Item Value Reference Range Interpretation Comments Lymph BF (test code = Lymph BF) 16 [facility]2020-10-06 01:30:00 Test Item Value Reference Range Interpretation Comments Macrophage BF (test code = Macrophage 53 BF) [facility]2020-10-06 01:30:00 Test Item Value Reference Range Interpretation Comments Eos BF (test code = Eos BF) 6 [facility] [id number] 01:30:00 Test Item Value Reference Range Interpretation Comments Meso BF (test code = Meso BF) 2 [facility] [id number] 01:30:00 Test Item Value Reference Range Interpretation Comments Gram Stain Report Few WBC's No Organisms (test code = Gram Seen Stain Report) [facility] Aspirate/Body Fluid/[id number] 01:30:00 Test Item Value Reference Range Interpretation Comments Culture: Aspirate/Body Fluid/Tissue No Growth (test code = Culture: Aspirate/Body Fluid/Tissue) [facility] [id number] 08:35:00 Test Item Value Reference Range Interpretation Comments Glucose Lvl (test code = Glucose Lvl) 113 70-99 [facility] [id number] 08:35:00 Test Item Value Reference Range Interpretation Comments BUN (test code = BUN) 29 7-22 [facility] [id number] 08:35:00 Test Item Value Reference Range Interpretation Comments Creatinine Lvl (test code = Creatinine 9.77 0.50-1.40 Lvl) [facility] [id number] 08:35:00 Test Item Value Reference Range Interpretation Comments Sodium Lvl (test code = Sodium Lvl) 133 135-145 [facility] [id number] 08:35:00 Test Item Value Reference Range Interpretation Comments Potassium Lvl (test code = Potassium 3.4 3.5-5.1 Lvl) [facility] [id number] 08:35:00 Test Item Value Reference Range Interpretation Comments Chloride Lvl (test code = Chloride Lvl) 97 95-109 [facility] [id number] 08:35:00 Test Item Value Reference Range Interpretation Comments CO2 (test code = CO2) 31 24-32 [facility]YourListen.[facility] [id number] 08:35:00 Test Item Value Reference Range Interpretation Comments Calcium Lvl (test code = Calcium Lvl) 8.8 8.5-10.5 [facility] [id number] 08:35:00 Test Item Value Reference Range Interpretation Comments AGAP (test code = AGAP) 8.4 10.0-20.0 [place] 124950-10-05 08:35:00 Test Item Value Reference Range Interpretation Comments eGFR (test code = eGFR) 5 [place] 124950-10-05 08:35:00 Test Item Value Reference Range Interpretation Comments Glucose Lvl (test code = Glucose Lvl) 113 70-99 [place] 124950-10-05 08:35:00 Test Item Value Reference Range Interpretation Comments BUN (test code = BUN) 29 7-22 [place] 124950-10-05 08:35:00 Test Item Value Reference Range Interpretation Comments Creatinine Lvl (test code = Creatinine 9.77 0.50-1.40 Lvl) [place] 124950-10-05 08:35:00 Test Item Value Reference Range Interpretation Comments Sodium Lvl (test code = Sodium Lvl) 133 135-145 [place] 124950-10-05 08:35:00 Test Item Value Reference Range Interpretation Comments Potassium Lvl (test code = Potassium 3.4 3.5-5.1 Lvl) [place] 124950-10-05 08:35:00 Test Item Value Reference Range Interpretation Comments Chloride Lvl (test code = Chloride Lvl) 97 95-109 [place] 124950-10-05 08:35:00 Test Item Value Reference Range Interpretation Comments CO2 (test code = CO2) 31 24-32 [place] 124950-10-05 08:35:00 Test Item Value Reference Range Interpretation Comments Calcium Lvl (test code = Calcium Lvl) 8.8 8.5-10.5 [place] 124950-10-05 08:35:00 Test Item Value Reference Range Interpretation Comments AGAP (test code = AGAP) 8.4 10.0-20.0 [place] 124950-10-05 08:35:00 Test Item Value Reference Range Interpretation Comments eGFR (test code = eGFR) 5 [place] 124950-10-05 08:35:00 Test Item Value Reference Range Interpretation Comments Glucose Lvl (test code = Glucose Lvl) 113 70-99 [place] 124950-10-05 08:35:00 Test Item Value Reference Range Interpretation Comments BUN (test code = BUN) 29 7-22 [facility]2020-10-05 08:35:00 Test Item Value Reference Range Interpretation Comments Creatinine Lvl (test code = Creatinine 9.77 0.50-1.40 Lvl) [facility]2020-10-05 08:35:00 Test Item Value Reference Range Interpretation Comments Sodium Lvl (test code = Sodium Lvl) 133 135-145 [place] 124950-10-05 08:35:00 Test Item Value Reference Range Interpretation Comments Potassium Lvl (test code = Potassium 3.4 3.5-5.1 Lvl) [facility]2020-10-05 08:35:00 Test Item Value Reference Range Interpretation Comments Chloride Lvl (test code = Chloride Lvl) 97 95-109 [facility]2020-10-05 08:35:00 Test Item Value Reference Range Interpretation Comments CO2 (test code = CO2) 31 24-32 [place] 124950-10-05 08:35:00 Test Item Value Reference Range Interpretation Comments Calcium Lvl (test code = Calcium Lvl) 8.8 8.5-10.5 [place] 124950-10-05 08:35:00 Test Item Value Reference Range Interpretation Comments AGAP (test code = AGAP) 8.4 10.0-20.0 [place] 124950-10-05 08:35:00 Test Item Value Reference Range Interpretation Comments eGFR (test code = eGFR) 5 [place] 124950-10-05 08:35:00 Test Item Value Reference Range Interpretation Comments Glucose Lvl (test code = Glucose Lvl) 113 70-99 [place] 124950-10-05 08:35:00 Test Item Value Reference Range Interpretation Comments BUN (test code = BUN) 29 7-22 [place] 124950-10-05 08:35:00 Test Item Value Reference Range Interpretation Comments Creatinine Lvl (test code = Creatinine 9.77 0.50-1.40 Lvl) [facility]2020-10-05 08:35:00 Test Item Value Reference Range Interpretation Comments Sodium Lvl (test code = Sodium Lvl) 133 135-145 [place] 124950-10-05 08:35:00 Test Item Value Reference Range Interpretation Comments Potassium Lvl (test code = Potassium 3.4 3.5-5.1 Lvl) [facility]2020-10-05 08:35:00 Test Item Value Reference Range Interpretation Comments Chloride Lvl (test code = Chloride Lvl) 97 95-109 [place] 124950-10-05 08:35:00 Test Item Value Reference Range Interpretation Comments CO2 (test code = CO2) 31 24-32 [place] 124950-10-05 08:35:00 Test Item Value Reference Range Interpretation Comments Calcium Lvl (test code = Calcium Lvl) 8.8 8.5-10.5 [place] 124950-10-05 08:35:00 Test Item Value Reference Range Interpretation Comments AGAP (test code = AGAP) 8.4 10.0-20.0 [facility]2020-10-05 08:35:00 Test Item Value Reference Range Interpretation Comments eGFR (test code = eGFR) 5 [facility]2020-10-05 00:15:00 Test Item Value Reference Range Interpretation Comments Color BF (test code = Light Yellow (07/12/20 Color BF) 7:15 PM) [facility]2020-10-05 00:15:00 Test Item Value Reference Range Interpretation Comments Clarity BF (test code = Clear (07/12/20 7:15 Clarity BF) PM) [facility]2020-10-05 00:15:00 Test Item Value Reference Range Interpretation Comments Supernat BF (test code Colorless (07/12/20 7:15 = Supernat BF) PM) [facility]2020-10-05 00:15:00 Test Item Value Reference Range Interpretation Comments Nucleated Cells BF (test code = 227 Nucleated Cells BF) [facility]2020-10-05 00:15:00 Test Item Value Reference Range Interpretation Comments RBC BF (test code = RBC BF) 247 [facility] [id number] 00:15:00 Test Item Value Reference Range Interpretation Comments Neutrophils BF (test code = Neutrophils 27 BF) [facility]2020-10-05 00:15:00 Test Item Value Reference Range Interpretation Comments Lymph BF (test code = Lymph BF) 15 [facility] [id number] 00:15:00 Test Item Value Reference Range Interpretation Comments Macrophage BF (test code = Macrophage 52 BF) [facility] [id number] 00:15:00 Test Item Value Reference Range Interpretation Comments Eos BF (test code = Eos BF) 3 [facility] [id number] 00:15:00 Test Item Value Reference Range Interpretation Comments Meso BF (test code = Few (07/12/20 7:15 PM) Meso BF) [facility] [id number] 00:15:00 Test Item Value Reference Range Interpretation Comments Other BF (test code = See Note 4(07/12/20 Other BF) 7:15 PM) [facility] [id number] 00:15:00 Test Item Value Reference Range Interpretation Comments CellCnt BF Type (test Periton (07/12/20 7:15 code = CellCnt BF Type) PM) [facility] [id number] 00:15:00 Test Item Value Reference Range Interpretation Comments Gram Stain Report Rare WBC's No Organisms (test code = Gram Seen Stain Report) [facility]: Aspirate/Body Fluid/[id number] 00:15:00 Test Item Value Reference Range Interpretation Comments Culture: Aspirate/Body Fluid/Tissue No Growth (test code = Culture: Aspirate/Body Fluid/Tissue) [facility] [id number] 00:15:00 Test Item Value Reference Range Interpretation Comments Color BF (test code = Light Yellow (07/12/20 Color BF) 7:15 PM) [facility] [id number] 00:15:00 Test Item Value Reference Range Interpretation Comments Clarity BF (test code = Clear (07/12/20 7:15 Clarity BF) PM) [facility] [id number] 00:15:00 Test Item Value Reference Range Interpretation Comments Supernat BF (test code Colorless (07/12/20 7:15 = Supernat BF) PM) [facility] [id number] 00:15:00 Test Item Value Reference Range Interpretation Comments Nucleated Cells BF (test code = 227 Nucleated Cells BF) [facility] [id number] 00:15:00 Test Item Value Reference Range Interpretation Comments RBC BF (test code = RBC BF) 247 [facility] [id number] 00:15:00 Test Item Value Reference Range Interpretation Comments Neutrophils BF (test code = Neutrophils 27 BF) [facility] [id number] 00:15:00 Test Item Value Reference Range Interpretation Comments Lymph BF (test code = Lymph BF) 15 [facility] [id number] 00:15:00 Test Item Value Reference Range Interpretation Comments Macrophage BF (test code = Macrophage 52 BF) [facility] [id number] 00:15:00 Test Item Value Reference Range Interpretation Comments Eos BF (test code = Eos BF) 3 [facility] [id number] 00:15:00 Test Item Value Reference Range Interpretation Comments Meso BF (test code = Few (07/12/20 7:15 PM) [place]o BF) [facility] [id number] 00:15:00 Test Item Value Reference Range Interpretation Comments Other BF (test code = See Note 4(07/12/20 Other BF) 7:15 PM) [facility] [id number] 00:15:00 Test Item Value Reference Range Interpretation Comments CellCnt BF Type (test Periton (07/12/20 7:15 code = CellCnt BF Type) PM) [facility] [id number] 00:15:00 Test Item Value Reference Range Interpretation Comments Gram Stain Report Rare WBC's No Organisms (test code = Gram Seen Stain Report) [facility] Aspirate/Body Fluid/[id number] 00:15:00 Test Item Value Reference Range Interpretation Comments Culture: Aspirate/Body Fluid/Tissue No Growth (test code = Culture: Aspirate/Body Fluid/Tissue) [facility] [id number] 00:15:00 Test Item Value Reference Range Interpretation Comments Color BF (test code = Light Yellow (07/12/20 Color BF) 7:15 PM) [facility] [id number] 00:15:00 Test Item Value Reference Range Interpretation Comments Clarity BF (test code = Clear (07/12/20 7:15 Clarity BF) PM) [facility] [id number] 00:15:00 Test Item Value Reference Range Interpretation Comments Supernat BF (test code Colorless (07/12/20 7:15 = Supernat BF) PM) [facility] [id number] 00:15:00 Test Item Value Reference Range Interpretation Comments Nucleated Cells BF (test code = 227 Nucleated Cells BF) [facility] [id number] 00:15:00 Test Item Value Reference Range Interpretation Comments RBC BF (test code = RBC BF) 247 [facility] [id number] 00:15:00 Test Item Value Reference Range Interpretation Comments Neutrophils BF (test code = Neutrophils 27 BF) [facility]annGA[facility] [id number] 00:15:00 Test Item Value Reference Range Interpretation Comments Lymph BF (test code = Lymph BF) [facility] [id number] 00:15:00 Test Item Value Reference Range Interpretation Comments Macrophage BF (test code = Macrophage 52 BF) [facility] [id number] 00:15:00 Test Item Value Reference Range Interpretation Comments Eos BF (test code = Eos BF) 3 [facility]2020-10-05 00:15:00 Test Item Value Reference Range Interpretation Comments Meso BF (test code = Few (07/12/20 7:15 PM) Meso BF) [facility]2020-10-05 00:15:00 Test Item Value Reference Range Interpretation Comments Other BF (test code = See Note 4(07/12/20 Other BF) 7:15 PM) [facility]2020-10-05 00:15:00 Test Item Value Reference Range Interpretation Comments CellCnt BF Type (test Periton (07/12/20 7:15 code = CellCnt BF Type) PM) [facility] [id number] 00:15:00 Test Item Value Reference Range Interpretation Comments Gram Stain Report Rare WBC's No Organisms (test code = Gram Seen Stain Report) [facility] Aspirate/Body Fluid/[id number] 00:15:00 Test Item Value Reference Range Interpretation Comments Culture: Aspirate/Body Fluid/Tissue No Growth (test code = Culture: Aspirate/Body Fluid/Tissue) [facility] [id number] 00:15:00 Test Item Value Reference Range Interpretation Comments Color BF (test code = Light Yellow (07/12/20 Color BF) 7:15 PM) [facility]annGA[facility] [id number] 00:15:00 Test Item Value Reference Range Interpretation Comments Clarity BF (test code = Clear (07/12/20 7:15 Clarity BF) PM) [facility] [id number] 00:15:00 Test Item Value Reference Range Interpretation Comments Supernat BF (test code Colorless (07/12/20 7:15 = Supernat BF) PM) [facility] [id number] 00:15:00 Test Item Value Reference Range Interpretation Comments Nucleated Cells BF (test code = 227 Nucleated Cells BF) [facility] [id number] 00:15:00 Test Item Value Reference Range Interpretation Comments RBC BF (test code = RBC BF) 247 [facility] [id number] 00:15:00 Test Item Value Reference Range Interpretation Comments Neutrophils BF (test code = Neutrophils 27 BF) [facility] [id number] 00:15:00 Test Item Value Reference Range Interpretation Comments Lymph BF (test code = Lymph BF) 15 [facility] [id number] 00:15:00 Test Item Value Reference Range Interpretation Comments Macrophage BF (test code = Macrophage 52 BF) [facility] [id number] 00:15:00 Test Item Value Reference Range Interpretation Comments Eos BF (test code = Eos BF) 3 [facility] [id number] 00:15:00 Test Item Value Reference Range Interpretation Comments Meso BF (test code = Few (07/12/20 7:15 PM) Meso BF) [facility] [id number] 00:15:00 Test Item Value Reference Range Interpretation Comments Other BF (test code = See Note 4(07/12/20 Other BF) 7:15 PM) [facility] [id number] 00:15:00 Test Item Value Reference Range Interpretation Comments CellCnt BF Type (test Periton (07/12/20 7:15 code = CellCnt BF Type) PM) [facility] [id number] 00:15:00 Test Item Value Reference Range Interpretation Comments Gram Stain Report Rare WBC's No Organisms (test code = Gram Seen Stain Report) [facility] Aspirate/Body Fluid/[id number] 00:15:00 Test Item Value Reference Range Interpretation Comments Culture: Aspirate/Body Fluid/Tissue No Growth (test code = Culture: Aspirate/Body Fluid/Tissue) [facility] H[id number] 09:50:00 Test Item Value Reference Range Interpretation Comments Segs (test code = Segs) 74.0 45.0-75.0 [facility] [id number] 09:50:00 Test Item Value Reference Range Interpretation Comments Lymphocytes (test code = Lymphocytes) 14.8 20.0-40.0 [facility] [id number] 09:50:00 Test Item Value Reference Range Interpretation Comments Monocytes (test code = Monocytes) 7.1 2.0-12.0 [facility] [id number] 09:50:00 Test Item Value Reference Range Interpretation Comments Eosinophils (test code = 3.5 See_Comment [A utomated message] The Eosinophils) system which ge nerated this result tra nsmitted reference range : <=4.0. The reference r yared was not used to int erpret this result as normal/abnormal . [facility] [id number] 09:50:00 Test Item Value Reference Range Interpretation Comments Basophils (test code = 0.6 See_Comment [Aut omated message] The Basophils) system which ge nerated this result tra nsmitted reference range : <=1.0. The reference r yared was not used to int erpret this result as normal/abnormal . [facility] CenterLugyovgKCNIIFZWYK1661-32-89 09:50:00 Test Item Value Reference Range Interpretation Comments Neutrophils # (test code = Neutrophils 4.9 1.5-8.1 #) [facility] Cent[id number] 09:50:00 Test Item Value Reference Range Interpretation Comments Lymphocytes # (test code = Lymphocytes 1.0 1.0-5.5 #) [facility] CenterNsjwjfaDPMUTNLWFE7638-08-05 09:50:00 Test Item Value Reference Range Interpretation Comments Monocytes # (test code 0.5 See_Comment [Aut omated message] The = Monocytes #) system which generated this result tra nsmitted reference range : <=0.8. The reference r yared was not used to int erpret this result as normal/abnormal . [facility] CenterSijkhwcTNFHUVINCJ8895-27-04 09:50:00 Test Item Value Reference Range Interpretation Comments Eosinophils # (test code 0.2 See_Comment [A utomated message] The = Eosinophils #) system whic h generated this result tra nsmitted reference range : <=0.5. The reference r yared was not used to int erpret this result as normal/abnormal . [facility] CenterGhjefezONPNRAKEKC1504-40-41 09:50:00 Test Item Value Reference Range Interpretation Comments WBC (test code = WBC) 6.7 3.7-10.4 [facility] [id number] 09:50:00 Test Item Value Reference Range Interpretation Comments RBC (test code = RBC) 2.86 4.70-6.10 [facility] CenterJfyziloSSFEVTWDGO7476-23-83 09:50:00 Test Item Value Reference Range Interpretation Comments Hgb (test code = Hgb) 8.3 14.0-18.0 [facility] CenterWxmjejwKGUCEZXTAY6172-84-16 09:50:00 Test Item Value Reference Range Interpretation Comments Hct (test code = Hct) 24.4 42.0-54.0 [facility] CenterVepfnflEAONKMIYWV2887-83-19 09:50:00 Test Item Value Reference Range Interpretation Comments MCV (test code = MCV) 85.1 80.0-94.0 [facility] CenterUubjpwsDHRTATEQUH0445-48-54 09:50:00 Test Item Value Reference Range Interpretation Comments MCH (test code = MCH) 29.0 pg 27.0-31.0 [facility] CenterFstufedSXHYLUJMBS1142-67-07 09:50:00 Test Item Value Reference Range Interpretation Comments MCHC (test code = MCHC) 34.1 32.0-36.0 [facility] CenterDjlxgxhNHTPQIJXEY7445-32-01 09:50:00 Test Item Value Reference Range Interpretation Comments RDW (test code = RDW) 14.1 11.5-14.5 [facility] CenterDwmaxcgJJWBEKCFDQ9293-08-61 09:50:00 Test Item Value Reference Range Interpretation Comments Platelet (test code = Platelet) 209 133-450 [facility] CenterOtzovvbYRGPUQLTGH2014-20-10 09:50:00 Test Item Value Reference Range Interpretation Comments MPV (test code = MPV) 6.6 7.4-10.4 [facility]rhWXKECBXTWX2667-13-04 09:50:00 Test Item Value Reference Range Interpretation Comments Vanco Lvl (test code = Vanco Lvl) 13.1 [facility] CenterUmtoeuwGJWCMGTNHK6945-04-60 09:50:00 Test Item Value Reference Range Interpretation Comments Segs (test code = Segs) 74.0 45.0-75.0 [facility] CenterAtnhqawLOXZGMZNMI1336-70-67 09:50:00 Test Item Value Reference Range Interpretation Comments Lymphocytes (test code = Lymphocytes) 14.8 20.0-40.0 [facility] CenterKynbuzpISCXPIAJGI0603-10-64 09:50:00 Test Item Value Reference Range Interpretation Comments Monocytes (test code = Monocytes) 7.1 2.0-12.0 [facility] CenterTsrmrgaFQKGGHVNPL3274-70-94 09:50:00 Test Item Value Reference Range Interpretation Comments Eosinophils (test code = 3.5 See_Comment [A utomated message] The Eosinophils) system which ge nerated this result tra nsmitted reference range : <=4.0. The reference r yared was not used to int erpret this result as normal/abnormal . [facility] CenterUgoarslQOSOINKFEO3025-87-44 09:50:00 Test Item Value Reference Range Interpretation Comments Basophils (test code = 0.6 See_Comment [Aut omated message] The Basophils) system which ge nerated this result tra nsmitted reference range : <=1.0. The reference r yared was not used to int erpret this result as normal/abnormal . [facility] CenterTcjlzqnSFFQMQOMGX5673-97-33 09:50:00 Test Item Value Reference Range Interpretation Comments Neutrophils # (test code = Neutrophils 4.9 1.5-8.1 #) [facility] CenterNxauijkVQEUHAFUCK2586-27-10 09:50:00 Test Item Value Reference Range Interpretation Comments Lymphocytes # (test code = Lymphocytes 1.0 1.0-5.5 #) [facility] CenterArqakadEJAJWTHEDA5772-76-70 09:50:00 Test Item Value Reference Range Interpretation Comments Monocytes # (test code 0.5 See_Comment [Aut omated message] The = Monocytes #) system which generated this result tra nsmitted reference range : <=0.8. The reference r yared was not used to int erpret this result as normal/abnormal . [facility] CenterHhfagfvFUQSUXZIHV3518-76-49 09:50:00 Test Item Value Reference Range Interpretation Comments Eosinophils # (test code 0.2 See_Comment [A utomated message] The = Eosinophils #) system ic h generated this result tra nsmitted reference range : <=0.5. The reference r yared was not used to int erpret this result as normal/abnormal . [facility] CenterWtmkvhtYKOIHAUPPS7057-49-82 09:50:00 Test Item Value Reference Range Interpretation Comments WBC (test code = WBC) 6.7 3.7-10.4 [facility] CenterAewhyjbMTSQMGKOPW2160-31-74 09:50:00 Test Item Value Reference Range Interpretation Comments RBC (test code = RBC) 2.86 4.70-6.10 [facility] CenterCbonpjzCLYGLHRAPE0689-82-82 09:50:00 Test Item Value Reference Range Interpretation Comments Hgb (test code = Hgb) 8.3 14.0-18.0 [facility] CenterHdggqyoASYKDHQCYC2860-37-47 09:50:00 Test Item Value Reference Range Interpretation Comments Hct (test code = Hct) 24.4 42.0-54.0 [facility] CenterWkhuqlcVIVDEOFWPZ8901-64-98 09:50:00 Test Item Value Reference Range Interpretation Comments MCV (test code = MCV) 85.1 80.0-94.0 [facility] CenterUvywnwrAGUULEQAYL6316-74-83 09:50:00 Test Item Value Reference Range Interpretation Comments MCH (test code = MCH) 29.0 pg 27.0-31.0 [facility] CenterLfrhutpRTGTNBQANA3656-52-06 09:50:00 Test Item Value Reference Range Interpretation Comments MCHC (test code = MCHC) 34.1 32.0-36.0 [facility] CenterBlnzfecCBTMZMEBEE5154-15-80 09:50:00 Test Item Value Reference Range Interpretation Comments RDW (test code = RDW) 14.1 11.5-14.5 [facility] CenterNoqyiylPUIDTRDUGR7936-32-91 09:50:00 Test Item Value Reference Range Interpretation Comments Platelet (test code = Platelet) 209 133-450 [facility] CenterFeeasibFPJRHTDPEV5985-85-56 09:50:00 Test Item Value Reference Range Interpretation Comments MPV (test code = MPV) 6.6 7.4-10.4 [facility] HospitalEpkgtjpXZMJELAIGE0583-66-77 09:50:00 Test Item Value Reference Range Interpretation Comments Vanco Lvl (test code = Vanco Lvl) 13.1 [facility] CenterAjuzcovXCKJJTWJNC6279-00-03 09:50:00 Test Item Value Reference Range Interpretation Comments Segs (test code = Segs) 74.0 45.0-75.0 [facility] CenterFukaocoNQTFZJJSWV0272-10-27 09:50:00 Test Item Value Reference Range Interpretation Comments Lymphocytes (test code = Lymphocytes) 14.8 20.0-40.0 [facility] CenterYxoiuyfKNPKVGFJDC7433-87-24 09:50:00 Test Item Value Reference Range Interpretation Comments Monocytes (test code = Monocytes) 7.1 2.0-12.0 [facility] CenterKijougeEFDYHMXXRO6591-08-05 09:50:00 Test Item Value Reference Range Interpretation Comments Eosinophils (test code = 3.5 See_Comment [A utomated message] The Eosinophils) system which ge nerated this result tra nsmitted reference range : <=4.0. The reference r yared was not used to int erpret this result as normal/abnormal . [facility] CenterVeevcjtMDUAPAXKRK8976-02-23 09:50:00 Test Item Value Reference Range Interpretation Comments Basophils (test code = 0.6 See_Comment [Aut omated message] The Basophils) system which ge nerated this result tra nsmitted reference range : <=1.0. The reference r yared was not used to int erpret this result as normal/abnormal . [facility] CenterNxsnwtgLLRRKGXZRY3972-57-59 09:50:00 Test Item Value Reference Range Interpretation Comments Neutrophils # (test code = Neutrophils 4.9 1.5-8.1 #) [facility] CenterXsxspkmBLTHZROVAB0563-34-41 09:50:00 Test Item Value Reference Range Interpretation Comments Lymphocytes # (test code = Lymphocytes 1.0 1.0-5.5 #) [facility] CenterIenjndzQVCHBDLXUA7769-53-77 09:50:00 Test Item Value Reference Range Interpretation Comments Monocytes # (test code 0.5 See_Comment [Aut omated message] The = Monocytes #) system which generated this result tra nsmitted reference range : <=0.8. The reference r yared was not used to int erpret this result as normal/abnormal . [facility] CenterWnezjarBDKFRICEOS6020-11-90 09:50:00 Test Item Value Reference Range Interpretation Comments Eosinophils # (test code 0.2 See_Comment [A utomated message] The = Eosinophils #) system ic h generated this result tra nsmitted reference range : <=0.5. The reference r yared was not used to int erpret this result as normal/abnormal . [facility] CenterZjixrfuTYCOFWQYNS3359-43-89 09:50:00 Test Item Value Reference Range Interpretation Comments WBC (test code = WBC) 6.7 3.7-10.4 [facility]YppzhvcRFRKDIFOUU5008-52-24 09:50:00 Test Item Value Reference Range Interpretation Comments RBC (test code = RBC) 2.86 4.70-6.10 [facility] HospitalWaogioqZBJLXYAHFX9485-50-13 09:50:00 Test Item Value Reference Range Interpretation Comments Hgb (test code = Hgb) 8.3 14.0-18.0 [facility] HospitalVbgkzucAVACIWYJZW5910-04-28 09:50:00 Test Item Value Reference Range Interpretation Comments Hct (test code = Hct) 24.4 42.0-54.0 [facility] HospitalSptqggbTIUWAALQJC1267-02-44 09:50:00 Test Item Value Reference Range Interpretation Comments MCV (test code = MCV) 85.1 80.0-94.0 [facility] HospitalFgtqvoiFKSSGBZASC5072-60-27 09:50:00 Test Item Value Reference Range Interpretation Comments MCH (test code = MCH) 29.0 pg 27.0-31.0 [facility] HospitalVbpkjahJETRXJEIGV5175-62-63 09:50:00 Test Item Value Reference Range Interpretation Comments MCHC (test code = MCHC) 34.1 32.0-36.0 [facility] HospitalAyhnmbpWHXWIBQGOS5047-47-13 09:50:00 Test Item Value Reference Range Interpretation Comments RDW (test code = RDW) 14.1 11.5-14.5 [facility] HospitalVmxoqxhFHCTQTWMTP8630-50-91 09:50:00 Test Item Value Reference Range Interpretation Comments Platelet (test code = Platelet) 209 133-450 [facility] CenterPgqhlhrLLGMYTRPZN8158-14-13 09:50:00 Test Item Value Reference Range Interpretation Comments MPV (test code = MPV) 6.6 7.4-10.4 [facility] HospitalBwkvwflTCEBNTJSJN5826-07-35 09:50:00 Test Item Value Reference Range Interpretation Comments Vanco Lvl (test code = Vanco Lvl) 13.1 [facility] HospitalHshcykfDNGBYAMVSL9021-10-15 09:50:00 Test Item Value Reference Range Interpretation Comments Segs (test code = Segs) 74.0 45.0-75.0 [facility] HospitalVponqorBHSSMBHBWA6025-04-09 09:50:00 Test Item Value Reference Range Interpretation Comments Lymphocytes (test code = Lymphocytes) 14.8 20.0-40.0 [facility] CenterLzwdwrqFIKHGLPCMK3891-35-17 09:50:00 Test Item Value Reference Range Interpretation Comments Monocytes (test code = Monocytes) 7.1 2.0-12.0 [facility] CenterKbfgomhQIZYLCQHZK5015-66-37 09:50:00 Test Item Value Reference Range Interpretation Comments Eosinophils (test code = 3.5 See_Comment [A utomated message] The Eosinophils) system which ge nerated this result tra nsmitted reference range : <=4.0. The reference r yared was not used to int erpret this result as normal/abnormal . [facility] CenterFauxfeoCKHPWWEAWO0547-67-28 09:50:00 Test Item Value Reference Range Interpretation Comments Basophils (test code = 0.6 See_Comment [Aut omated message] The Basophils) system which ge nerated this result tra nsmitted reference range : <=1.0. The reference r yared was not used to int erpret this result as normal/abnormal . [facility] CenterZjomiuiEGDRETARLT0616-59-45 09:50:00 Test Item Value Reference Range Interpretation Comments Neutrophils # (test code = Neutrophils 4.9 1.5-8.1 #) [facility] CenterWkhkcrgZMJQRKLQZD1409-11-60 09:50:00 Test Item Value Reference Range Interpretation Comments Lymphocytes # (test code = Lymphocytes 1.0 1.0-5.5 #) [facility] CenterYkogmuxOWEUQZYPNW9880-60-88 09:50:00 Test Item Value Reference Range Interpretation Comments Monocytes # (test code 0.5 See_Comment [Aut omated message] The = Monocytes #) system which generated this result tra nsmitted reference range : <=0.8. The reference r yared was not used to int erpret this result as normal/abnormal . [facility] CenterLzpiiojGWHBJZAXLB9205-10-52 09:50:00 Test Item Value Reference Range Interpretation Comments Eosinophils # (test code 0.2 See_Comment [A utomated message] The = Eosinophils #) system whic h generated this result tra nsmitted reference range : <=0.5. The reference r yared was not used to int erpret this result as normal/abnormal . [facility] CenterGexjitpMKAAQNZWZG7629-49-66 09:50:00 Test Item Value Reference Range Interpretation Comments WBC (test code = WBC) 6.7 3.7-10.4 [facility] CenterCabmvsxZHJCJMCZWO9529-04-76 09:50:00 Test Item Value Reference Range Interpretation Comments RBC (test code = RBC) 2.86 4.70-6.10 [facility] CenterKirsskyFKPVYKNHMQ1991-26-46 09:50:00 Test Item Value Reference Range Interpretation Comments Hgb (test code = Hgb) 8.3 14.0-18.0 [facility] CenterZpevrnsQIETZKYMGF5687-91-99 09:50:00 Test Item Value Reference Range Interpretation Comments Hct (test code = Hct) 24.4 42.0-54.0 [facility] CenterEadcrsqPSIGCTIZIX7343-48-44 09:50:00 Test Item Value Reference Range Interpretation Comments MCV (test code = MCV) 85.1 80.0-94.0 [facility] CenterKyoijitAYKIEPLVND0178-42-74 09:50:00 Test Item Value Reference Range Interpretation Comments MCH (test code = MCH) 29.0 pg 27.0-31.0 [facility] CenterExaacuiJYDWGEDMHP0517-63-91 09:50:00 Test Item Value Reference Range Interpretation Comments MCHC (test code = MCHC) 34.1 32.0-36.0 [facility] CenterYxwpsbfGVZNKAEHZX9759-98-11 09:50:00 Test Item Value Reference Range Interpretation Comments RDW (test code = RDW) 14.1 11.5-14.5 [facility] CenterWbvepeqGYEOTLKHMI8649-63-55 09:50:00 Test Item Value Reference Range Interpretation Comments Platelet (test code = Platelet) 209 133-450 [facility] CenterCsscdgdWNMKBJFSXL6159-14-99 09:50:00 Test Item Value Reference Range Interpretation Comments MPV (test code = MPV) 6.6 7.4-10.4 [facility]DldyvqiASNDRWBBLV2328-05-86 09:50:00 Test Item Value Reference Range Interpretation Comments Vanco Lvl (test code = Vanco Lvl) 13.1 [facility]2020-10-04 00:50:00 Test Item Value Reference Range Interpretation Comments Color BF (test code = Light Yellow (07/11/20 Color BF) 7:50 PM) [facility]2020-10-04 00:50:00 Test Item Value Reference Range Interpretation Comments Clarity BF (test code = Slight Cloudy (07/11/20 Clarity BF) 7:50 PM) [facility]2020-10-04 00:50:00 Test Item Value Reference Range Interpretation Comments Supernat BF (test code Colorless (07/11/20 7:50 = Supernat BF) PM) [facility]2020-10-04 00:50:00 Test Item Value Reference Range Interpretation Comments Nucleated Cells BF (test code = 474 Nucleated Cells BF) [facility]2020-10-04 00:50:00 Test Item Value Reference Range Interpretation Comments RBC BF (test code = RBC BF) 79 [facility]2020-10-04 00:50:00 Test Item Value Reference Range Interpretation Comments Neutrophils BF (test code = Neutrophils 53 BF) [facility]2020-10-04 00:50:00 Test Item Value Reference Range Interpretation Comments Lymph BF (test code = Lymph BF) 10 [facility]2020-10-04 00:50:00 Test Item Value Reference Range Interpretation Comments Macrophage BF (test code = Macrophage 33 BF) [facility]2020-10-04 00:50:00 Test Item Value Reference Range Interpretation Comments Eos BF (test code = Eos BF) 3 [facility]2020-10-04 00:50:00 Test Item Value Reference Range Interpretation Comments Meso BF (test code = Meso BF) 1 [facility]2020-10-04 00:50:00 Test Item Value Reference Range Interpretation Comments CellCnt BF Type (test Periton (07/11/20 7:50 code = CellCnt BF Type) PM) [facility]2020-10-04 00:50:00 Test Item Value Reference Range Interpretation Comments Color BF (test code = Light Yellow (07/11/20 Color BF) 7:50 PM) [facility]2020-10-04 00:50:00 Test Item Value Reference Range Interpretation Comments Clarity BF (test code = Slight Cloudy (07/11/20 Clarity BF) 7:50 PM) [facility]2020-10-04 00:50:00 Test Item Value Reference Range Interpretation Comments Supernat BF (test code Colorless (07/11/20 7:50 = Supernat BF) PM) [facility]2020-10-04 00:50:00 Test Item Value Reference Range Interpretation Comments Nucleated Cells BF (test code = 474 Nucleated Cells BF) [facility]2020-10-04 00:50:00 Test Item Value Reference Range Interpretation Comments RBC BF (test code = RBC BF) 79 [facility]2020-10-04 00:50:00 Test Item Value Reference Range Interpretation Comments Neutrophils BF (test code = Neutrophils 53 BF) [facility]2020-10-04 00:50:00 Test Item Value Reference Range Interpretation Comments Lymph BF (test code = Lymph BF) 10 [facility]2020-10-04 00:50:00 Test Item Value Reference Range Interpretation Comments Macrophage BF (test code = Macrophage 33 BF) [facility]2020-10-04 00:50:00 Test Item Value Reference Range Interpretation Comments Eos BF (test code = Eos BF) 3 [facility]2020-10-04 00:50:00 Test Item Value Reference Range Interpretation Comments Meso BF (test code = Meso BF) 1 [facility]2020-10-04 00:50:00 Test Item Value Reference Range Interpretation Comments CellCnt BF Type (test Periton (07/11/20 7:50 code = CellCnt BF Type) PM) [facility]2020-10-04 00:50:00 Test Item Value Reference Range Interpretation Comments Color BF (test code = Light Yellow (07/11/20 Color BF) 7:50 PM) [facility]2020-10-04 00:50:00 Test Item Value Reference Range Interpretation Comments Clarity BF (test code = Slight Cloudy (07/11/20 Clarity BF) 7:50 PM) [facility]2020-10-04 00:50:00 Test Item Value Reference Range Interpretation Comments Supernat BF (test code Colorless (07/11/20 7:50 = Supernat BF) PM) [facility]2020-10-04 00:50:00 Test Item Value Reference Range Interpretation Comments Nucleated Cells BF (test code = 474 Nucleated Cells BF) [facility]2020-10-04 00:50:00 Test Item Value Reference Range Interpretation Comments RBC BF (test code = RBC BF) 79 [facility]2020-10-04 00:50:00 Test Item Value Reference Range Interpretation Comments Neutrophils BF (test code = Neutrophils 53 BF) [facility]2020-10-04 00:50:00 Test Item Value Reference Range Interpretation Comments Lymph BF (test code = Lymph BF) 10 [facility] HTURCW7485-76-75 00:50:00 Test Item Value Reference Range Interpretation Comments Macrophage BF (test code = Macrophage 33 BF) [facility]2020-10-04 00:50:00 Test Item Value Reference Range Interpretation Comments Eos BF (test code = Eos BF) 3 [facility] BSIKLN0860-51-56 00:50:00 Test Item Value Reference Range Interpretation Comments Meso BF (test code = Meso BF) 1 [facility]2020-10-04 00:50:00 Test Item Value Reference Range Interpretation Comments CellCnt BF Type (test Periton (07/11/20 7:50 code = CellCnt BF Type) PM) [facility]2020-10-04 00:50:00 Test Item Value Reference Range Interpretation Comments Color BF (test code = Light Yellow (07/11/20 Color BF) 7:50 PM) [facility]2020-10-04 00:50:00 Test Item Value Reference Range Interpretation Comments Clarity BF (test code = Slight Cloudy (07/11/20 Clarity BF) 7:50 PM) [facility]2020-10-04 00:50:00 Test Item Value Reference Range Interpretation Comments Supernat BF (test code Colorless (07/11/20 7:50 = Supernat BF) PM) [facility]2020-10-04 00:50:00 Test Item Value Reference Range Interpretation Comments Nucleated Cells BF (test code = 474 Nucleated Cells BF) [facility]2020-10-04 00:50:00 Test Item Value Reference Range Interpretation Comments RBC BF (test code = RBC BF) 79 [facility] CJQFEX7033-12-29 00:50:00 Test Item Value Reference Range Interpretation Comments Neutrophils BF (test code = Neutrophils 53 BF) [facility] IUZJZN8706-35-38 00:50:00 Test Item Value Reference Range Interpretation Comments Lymph BF (test code = Lymph BF) 10 [facility] SOXQFW0693-07-02 00:50:00 Test Item Value Reference Range Interpretation Comments Macrophage BF (test code = Macrophage 33 BF) [facility] BIQCVI2193-25-82 00:50:00 Test Item Value Reference Range Interpretation Comments Eos BF (test code = Eos BF) 3 [facility] GXZLWG0475-36-20 00:50:00 Test Item Value Reference Range Interpretation Comments Meso BF (test code = Meso BF) 1 [facility]2020-10-04 00:50:00 Test Item Value Reference Range Interpretation Comments CellCnt BF Type (test Periton (07/11/20 7:50 code = CellCnt BF Type) PM) [facility]LnydckmFKVCXVAKOS9362-15-20 08:20:00 Test Item Value Reference Range Interpretation Comments WBC (test code = WBC) 6.2 3.7-10.4 [facility]AivrwqvJGJLLKFQNA9677-61-07 08:20:00 Test Item Value Reference Range Interpretation Comments RBC (test code = RBC) 2.74 4.70-6.10 [facility]FwlkbbvMVPOCKHXGC9985-38-02 08:20:00 Test Item Value Reference Range Interpretation Comments Hgb (test code = Hgb) 8.0 14.0-18.0 [facility] HospitalNsbgbhaNITEXHBRLB8404-22-10 08:20:00 Test Item Value Reference Range Interpretation Comments Hct (test code = Hct) 23.1 42.0-54.0 [facility] HospitalGlmxlhxYVIENSLVAF5764-28-23 08:20:00 Test Item Value Reference Range Interpretation Comments MCV (test code = MCV) 84.4 80.0-94.0 [facility] HospitalSyuuqcfBXZSWVJSHC2294-10-79 08:20:00 Test Item Value Reference Range Interpretation Comments MCH (test code = MCH) 29.2 pg 27.0-31.0 [facility] HospitalKbxnpbpYWHFGWMQGY9098-89-71 08:20:00 Test Item Value Reference Range Interpretation Comments MCHC (test code = MCHC) 34.7 32.0-36.0 [facility] HospitalRomfknwMQJWOOOAIS7534-57-58 08:20:00 Test Item Value Reference Range Interpretation Comments RDW (test code = RDW) 13.9 11.5-14.5 [facility] HospitalVetdwokXYPBTMYHWB7071-41-51 08:20:00 Test Item Value Reference Range Interpretation Comments Platelet (test code = Platelet) 199 133-450 [facility] HospitalRpdyedxKVIWWRABSU0634-57-81 08:20:00 Test Item Value Reference Range Interpretation Comments MPV (test code = MPV) 6.8 7.4-10.4 [facility] HospitalOgppysgCTLBKODOEQ5253-56-93 08:20:00 Test Item Value Reference Range Interpretation Comments Segs (test code = Segs) 74.0 45.0-75.0 [facility] CenterHporsdbUVJFPMZMXA7973-63-65 08:20:00 Test Item Value Reference Range Interpretation Comments Lymphocytes (test code = Lymphocytes) 13.2 20.0-40.0 [place] 922080-10-03 08:20:00 Test Item Value Reference Range Interpretation Comments Monocytes (test code = Monocytes) 9.1 2.0-12.0 [place] [address]-10-03 08:20:00 Test Item Value Reference Range Interpretation Comments Eosinophils (test code = 3.2 See_Comment [A utomated message] The Eosinophils) system which ge nerated this result tra nsmitted reference range : <=4.0. The reference r yared was not used to int erpret this result as normal/abnormal . [place] [address]-10-03 08:20:00 Test Item Value Reference Range Interpretation Comments Basophils (test code = 0.5 See_Comment [Aut omated message] The Basophils) system which ge nerated this result tra nsmitted reference range : <=1.0. The reference r yared was not used to int erpret this result as normal/abnormal . [facility] CenterJhhyfljVXGOMHZFRY4834-93-01 08:20:00 Test Item Value Reference Range Interpretation Comments Neutrophils # (test code = Neutrophils 4.6 1.5-8.1 #) [place] [address]-10-03 08:20:00 Test Item Value Reference Range Interpretation Comments Lymphocytes # (test code = Lymphocytes 0.8 1.0-5.5 #) [place] [address]-10-03 08:20:00 Test Item Value Reference Range Interpretation Comments Monocytes # (test code 0.6 See_Comment [Aut omated message] The = Monocytes #) system which generated this result tra nsmitted reference range : <=0.8. The reference r yared was not used to int erpret this result as normal/abnormal . [place] [address]-10-03 08:20:00 Test Item Value Reference Range Interpretation Comments Eosinophils # (test code 0.2 See_Comment [A utomated message] The = Eosinophils #) system ic h generated this result tra nsmitted reference range : <=0.5. The reference r yared was not used to int erpret this result as normal/abnormal . [facility] CenterDzsbfnpZNXBHVRLZO7840-97-65 08:20:00 Test Item Value Reference Range Interpretation Comments WBC (test code = WBC) 6.2 3.7-10.4 [facility] CenterOxeackoXQYKIBPOGB4994-34-06 08:20:00 Test Item Value Reference Range Interpretation Comments RBC (test code = RBC) 2.74 4.70-6.10 [facility] CenterPjpewjkTLJHKSWXNC7357-17-80 08:20:00 Test Item Value Reference Range Interpretation Comments Hgb (test code = Hgb) 8.0 14.0-18.0 [facility] CenterHugcoxnDWPIZRECGQ3784-80-67 08:20:00 Test Item Value Reference Range Interpretation Comments Hct (test code = Hct) 23.1 42.0-54.0 [facility] CenterCjmvrzuEVFBHPOFVS2431-62-75 08:20:00 Test Item Value Reference Range Interpretation Comments MCV (test code = MCV) 84.4 80.0-94.0 [facility] CenterPytcljjYORTMKHNXV8395-29-17 08:20:00 Test Item Value Reference Range Interpretation Comments MCH (test code = MCH) 29.2 pg 27.0-31.0 [facility] CenterUeglsjuIBBWAJQENG3511-13-80 08:20:00 Test Item Value Reference Range Interpretation Comments MCHC (test code = MCHC) 34.7 32.0-36.0 [facility] CenterHtarmhkWBDVRDVACO2206-45-16 08:20:00 Test Item Value Reference Range Interpretation Comments RDW (test code = RDW) 13.9 11.5-14.5 [facility] CenterYgvtpzqOVMKLRNVWK2019-49-07 08:20:00 Test Item Value Reference Range Interpretation Comments Platelet (test code = Platelet) 199 133-450 [facility] CenterVikegznQRYJFJTOXZ9573-38-26 08:20:00 Test Item Value Reference Range Interpretation Comments MPV (test code = MPV) 6.8 7.4-10.4 [facility] CenterMufyoodJXJAOCINNI3105-32-67 08:20:00 Test Item Value Reference Range Interpretation Comments Segs (test code = Segs) 74.0 45.0-75.0 [facility] CenterWwwfgncIOSWZOLMWM5677-52-05 08:20:00 Test Item Value Reference Range Interpretation Comments Lymphocytes (test code = Lymphocytes) 13.2 20.0-40.0 [facility] CenterAftoscgLWECKBBDKB9062-93-16 08:20:00 Test Item Value Reference Range Interpretation Comments Monocytes (test code = Monocytes) 9.1 2.0-12.0 [place] 922080-10-03 08:20:00 Test Item Value Reference Range Interpretation Comments Eosinophils (test code = 3.2 See_Comment [A utomated message] The Eosinophils) system which ge nerated this result tra nsmitted reference range : <=4.0. The reference r yared was not used to int erpret this result as normal/abnormal . [place] [address]-10-03 08:20:00 Test Item Value Reference Range Interpretation Comments Basophils (test code = 0.5 See_Comment [Aut omated message] The Basophils) system which ge nerated this result tra nsmitted reference range : <=1.0. The reference r yared was not used to int erpret this result as normal/abnormal . [facility] CenterZisqtexRFBAXVSNTC2641-93-29 08:20:00 Test Item Value Reference Range Interpretation Comments Neutrophils # (test code = Neutrophils 4.6 1.5-8.1 #) [place] [address]-10-03 08:20:00 Test Item Value Reference Range Interpretation Comments Lymphocytes # (test code = Lymphocytes 0.8 1.0-5.5 #) [place] [address]-10-03 08:20:00 Test Item Value Reference Range Interpretation Comments Monocytes # (test code 0.6 See_Comment [Aut omated message] The = Monocytes #) system which generated this result tra nsmitted reference range : <=0.8. The reference r yared was not used to int erpret this result as normal/abnormal . [place] [address]-10-03 08:20:00 Test Item Value Reference Range Interpretation Comments Eosinophils # (test code 0.2 See_Comment [A utomated message] The = Eosinophils #) system whic h generated this result tra nsmitted reference range : <=0.5. The reference r yared was not used to int erpret this result as normal/abnormal . [place] [address]-10-03 08:20:00 Test Item Value Reference Range Interpretation Comments WBC (test code = WBC) 6.2 3.7-10.4 [place] [address]-10-03 08:20:00 Test Item Value Reference Range Interpretation Comments RBC (test code = RBC) 2.74 4.70-6.10 [facility] CenterVqsinyfAKBBYKKCJG6138-83-90 08:20:00 Test Item Value Reference Range Interpretation Comments Hgb (test code = Hgb) 8.0 14.0-18.0 [place] [address]-10-03 08:20:00 Test Item Value Reference Range Interpretation Comments Hct (test code = Hct) 23.1 42.0-54.0 [facility] CenterCpzfzerWFRDNWMHUV1632-24-61 08:20:00 Test Item Value Reference Range Interpretation Comments MCV (test code = MCV) 84.4 80.0-94.0 [facility] CenterBqtmtlwEADCRIXARN1019-28-31 08:20:00 Test Item Value Reference Range Interpretation Comments MCH (test code = MCH) 29.2 pg 27.0-31.0 [facility] CenterPddrhwxMNFTAHPTVC3655-90-67 08:20:00 Test Item Value Reference Range Interpretation Comments MCHC (test code = MCHC) 34.7 32.0-36.0 [facility] CenterUoclsvxOCQYWDDJGT7409-19-92 08:20:00 Test Item Value Reference Range Interpretation Comments RDW (test code = RDW) 13.9 11.5-14.5 [facility] CenterGbovayiJYFGKOFGTQ7131-66-14 08:20:00 Test Item Value Reference Range Interpretation Comments Platelet (test code = Platelet) 199 133-450 [facility] CenterRuuoufuQHAIHKBDFG3652-76-99 08:20:00 Test Item Value Reference Range Interpretation Comments MPV (test code = MPV) 6.8 7.4-10.4 [facility] CenterIvyhyjfWQANWGNAXL9139-82-08 08:20:00 Test Item Value Reference Range Interpretation Comments Segs (test code = Segs) 74.0 45.0-75.0 [facility] CenterXeqlfprRUQUJWFTCN0650-95-52 08:20:00 Test Item Value Reference Range Interpretation Comments Lymphocytes (test code = Lymphocytes) 13.2 20.0-40.0 [place] [address]-10-03 08:20:00 Test Item Value Reference Range Interpretation Comments Monocytes (test code = Monocytes) 9.1 2.0-12.0 [place] [address]-10-03 08:20:00 Test Item Value Reference Range Interpretation Comments Eosinophils (test code = 3.2 See_Comment [A utomated message] The Eosinophils) system which ge nerated this result tra nsmitted reference range : <=4.0. The reference r yared was not used to int erpret this result as normal/abnormal . [facility] CenterVyjhivuINNBITVOTI6758-26-40 08:20:00 Test Item Value Reference Range Interpretation Comments Basophils (test code = 0.5 See_Comment [Aut omated message] The Basophils) system which ge nerated this result tra nsmitted reference range : <=1.0. The reference r yared was not used to int erpret this result as normal/abnormal . [facility] CenterBasyzsdOGXUCKCEQS6290-22-56 08:20:00 Test Item Value Reference Range Interpretation Comments Neutrophils # (test code = Neutrophils 4.6 1.5-8.1 #) [facility] CenterLijsjxrBZXFHTWSIW5463-28-77 08:20:00 Test Item Value Reference Range Interpretation Comments Lymphocytes # (test code = Lymphocytes 0.8 1.0-5.5 #) [facility] CenterVtjtfikZPRSESCQBE1472-96-96 08:20:00 Test Item Value Reference Range Interpretation Comments Monocytes # (test code 0.6 See_Comment [Aut omated message] The = Monocytes #) system which generated this result tra nsmitted reference range : <=0.8. The reference r yared was not used to int erpret this result as normal/abnormal . [facility] CenterBinwdfxPBOYUSSECO9812-78-58 08:20:00 Test Item Value Reference Range Interpretation Comments Eosinophils # (test code 0.2 See_Comment [A utomated message] The = Eosinophils #) system whic h generated this result tra nsmitted reference range : <=0.5. The reference r yared was not used to int erpret this result as normal/abnormal . [facility] CenterGgzveumFMJNIEJACH8140-91-53 08:20:00 Test Item Value Reference Range Interpretation Comments WBC (test code = WBC) 6.2 3.7-10.4 [facility] CenterBpscjweODUMIYSYWV2739-73-70 08:20:00 Test Item Value Reference Range Interpretation Comments RBC (test code = RBC) 2.74 4.70-6.10 [facility] CenterCyrkpwfMUSPUZLUJZ3302-96-44 08:20:00 Test Item Value Reference Range Interpretation Comments Hgb (test code = Hgb) 8.0 14.0-18.0 [place] [address]-10-03 08:20:00 Test Item Value Reference Range Interpretation Comments Hct (test code = Hct) 23.1 42.0-54.0 [place] [address]-10-03 08:20:00 Test Item Value Reference Range Interpretation Comments MCV (test code = MCV) 84.4 80.0-94.0 [place] [address]-10-03 08:20:00 Test Item Value Reference Range Interpretation Comments MCH (test code = MCH) 29.2 pg 27.0-31.0 [place] [address]-10-03 08:20:00 Test Item Value Reference Range Interpretation Comments MCHC (test code = MCHC) 34.7 32.0-36.0 [place] [address]-10-03 08:20:00 Test Item Value Reference Range Interpretation Comments RDW (test code = RDW) 13.9 11.5-14.5 [place] [address]-10-03 08:20:00 Test Item Value Reference Range Interpretation Comments Platelet (test code = Platelet) 199 133-450 [facility] CenterXqznswwHHFPXMHLPS1740-09-93 08:20:00 Test Item Value Reference Range Interpretation Comments MPV (test code = MPV) 6.8 7.4-10.4 [place] [address]-10-03 08:20:00 Test Item Value Reference Range Interpretation Comments Segs (test code = Segs) 74.0 45.0-75.0 [facility] CenterSgjqpmbBNBEYKGDZA2291-80-12 08:20:00 Test Item Value Reference Range Interpretation Comments Lymphocytes (test code = Lymphocytes) 13.2 20.0-40.0 [place] [address]-10-03 08:20:00 Test Item Value Reference Range Interpretation Comments Monocytes (test code = Monocytes) 9.1 2.0-12.0 [place] [address]-10-03 08:20:00 Test Item Value Reference Range Interpretation Comments Eosinophils (test code = 3.2 See_Comment [A utomated message] The Eosinophils) system which ge nerated this result tra nsmitted reference range : <=4.0. The reference r yared was not used to int erpret this result as normal/abnormal . [facility] CenterPzoneqkFCDIYPOLLR6088-02-70 08:20:00 Test Item Value Reference Range Interpretation Comments Basophils (test code = 0.5 See_Comment [Aut omated message] The Basophils) system which ge nerated this result tra nsmitted reference range : <=1.0. The reference r yared was not used to int erpret this result as normal/abnormal . [facility] CenterOiidxdbUTKTCWOSDV7975-71-69 08:20:00 Test Item Value Reference Range Interpretation Comments Neutrophils # (test code = Neutrophils 4.6 1.5-8.1 #) [facility] CenterKntaxgwVPARRBSJUU6310-22-30 08:20:00 Test Item Value Reference Range Interpretation Comments Lymphocytes # (test code = Lymphocytes 0.8 1.0-5.5 #) [facility] CenterRbocjwqYSHJYLKSFF0994-65-24 08:20:00 Test Item Value Reference Range Interpretation Comments Monocytes # (test code 0.6 See_Comment [Aut omated message] The = Monocytes #) system which generated this result tra nsmitted reference range : <=0.8. The reference r yared was not used to int erpret this result as normal/abnormal . [facility] CenterKtvvarrKWJGZZBJNB0009-87-28 08:20:00 Test Item Value Reference Range Interpretation Comments Eosinophils # (test code 0.2 See_Comment [A utomated message] The = Eosinophils #) system whic h generated this result tra nsmitted reference range : <=0.5. The reference r yared was not used to int erpret this result as normal/abnormal . [facility] CenterQkpkgffMGIOZMODMQ6344-82-24 14:52:00 Test Item Value Reference Range Interpretation Comments WBC (test code = WBC) 6.6 3.7-10.4 [place] 922080-10-02 14:52:00 Test Item Value Reference Range Interpretation Comments RBC (test code = RBC) 2.76 4.70-6.10 [place] 922080-10-02 14:52:00 Test Item Value Reference Range Interpretation Comments Hgb (test code = Hgb) 8.1 14.0-18.0 [place] 922080-10-02 14:52:00 Test Item Value Reference Range Interpretation Comments Hct (test code = Hct) 23.3 42.0-54.0 [facility] CenterUhoipqzTQHIZWBGWU9144-83-14 14:52:00 Test Item Value Reference Range Interpretation Comments MCV (test code = MCV) 84.2 80.0-94.0 [place] [address]-10-02 14:52:00 Test Item Value Reference Range Interpretation Comments MCH (test code = MCH) 29.3 pg 27.0-31.0 [place] 922080-10-02 14:52:00 Test Item Value Reference Range Interpretation Comments MCHC (test code = MCHC) 34.8 32.0-36.0 [facility] CenterYtcxenuIHYCICTEXO7605-55-63 14:52:00 Test Item Value Reference Range Interpretation Comments RDW (test code = RDW) 13.7 11.5-14.5 [place] [address]-10-02 14:52:00 Test Item Value Reference Range Interpretation Comments Platelet (test code = Platelet) 203 133-450 [facility] CenterTxmzrfzHTHSQAQANU7358-29-16 14:52:00 Test Item Value Reference Range Interpretation Comments MPV (test code = MPV) 6.6 7.4-10.4 [place] [address]-10-02 14:52:00 Test Item Value Reference Range Interpretation Comments RBC Morph (test code = Normal (07/10/20 9:52 RBC Morph) AM) [facility] CenterPtoueowVUDEXOCOIX3533-83-57 14:52:00 Test Item Value Reference Range Interpretation Comments Plt Morph (test code = Normal (07/10/20 9:52 Plt Morph) AM) [place] [address]-10-02 14:52:00 Test Item Value Reference Range Interpretation Comments Segs (test code = Segs) 76.0 45.0-75.0 [place] 922080-10-02 14:52:00 Test Item Value Reference Range Interpretation Comments Lymphocytes (test code = Lymphocytes) 11.5 20.0-40.0 [place] [address]-10-02 14:52:00 Test Item Value Reference Range Interpretation Comments Monocytes (test code = Monocytes) 8.9 2.0-12.0 [place] [address]-10-02 14:52:00 Test Item Value Reference Range Interpretation Comments Eosinophils (test code = 3.1 See_Comment [A utomated message] The Eosinophils) system which ge nerated this result tra nsmitted reference range : <=4.0. The reference r yared was not used to int erpret this result as normal/abnormal . [facility] CenterFazefycHBATJHCRVP9628-80-30 14:52:00 Test Item Value Reference Range Interpretation Comments Basophils (test code = 0.5 See_Comment [Aut omated message] The Basophils) system which ge nerated this result tra nsmitted reference range : <=1.0. The reference r yared was not used to int erpret this result as normal/abnormal . [facility] CenterOdncjrkCNFCMWPNFD9174-43-76 14:52:00 Test Item Value Reference Range Interpretation Comments Neutrophils # (test code = Neutrophils 5.1 1.5-8.1 #) [facility] CenterGoogblnCLVMGHBJBH7859-24-48 14:52:00 Test Item Value Reference Range Interpretation Comments Lymphocytes # (test code = Lymphocytes 0.8 1.0-5.5 #) [facility] CenterFwbbtcySHONHLZWDU7232-15-97 14:52:00 Test Item Value Reference Range Interpretation Comments Monocytes # (test code 0.6 See_Comment [Aut omated message] The = Monocytes #) system which generated this result tra nsmitted reference range : <=0.8. The reference r yared was not used to int erpret this result as normal/abnormal . [facility] CenterHllaztfYQKJCVXHTE6597-17-05 14:52:00 Test Item Value Reference Range Interpretation Comments Eosinophils # (test code 0.2 See_Comment [A utomated message] The = Eosinophils #) system whic h generated this result tra nsmitted reference range : <=0.5. The reference r yared was not used to int erpret this result as normal/abnormal . [facility] CenterWubdpzcPMVLCLRICQ9732-06-84 14:52:00 Test Item Value Reference Range Interpretation Comments WBC (test code = WBC) 6.6 3.7-10.4 [place] 922080-10-02 14:52:00 Test Item Value Reference Range Interpretation Comments RBC (test code = RBC) 2.76 4.70-6.10 [place] 922080-10-02 14:52:00 Test Item Value Reference Range Interpretation Comments Hgb (test code = Hgb) 8.1 14.0-18.0 [place] [address]-10-02 14:52:00 Test Item Value Reference Range Interpretation Comments Hct (test code = Hct) 23.3 42.0-54.0 [place] 922080-10-02 14:52:00 Test Item Value Reference Range Interpretation Comments MCV (test code = MCV) 84.2 80.0-94.0 [place] [address]-10-02 14:52:00 Test Item Value Reference Range Interpretation Comments MCH (test code = MCH) 29.3 pg 27.0-31.0 [place] 922080-10-02 14:52:00 Test Item Value Reference Range Interpretation Comments MCHC (test code = MCHC) 34.8 32.0-36.0 [place] [address]-10-02 14:52:00 Test Item Value Reference Range Interpretation Comments RDW (test code = RDW) 13.7 11.5-14.5 [place] [address]-10-02 14:52:00 Test Item Value Reference Range Interpretation Comments Platelet (test code = Platelet) 203 133-450 [facility] CenterCbybxbpBUKDBTHNUP6569-12-26 14:52:00 Test Item Value Reference Range Interpretation Comments MPV (test code = MPV) 6.6 7.4-10.4 [place] [address]-10-02 14:52:00 Test Item Value Reference Range Interpretation Comments RBC Morph (test code = Normal (07/10/20 9:52 RBC Morph) AM) [facility] CenterFgeamifOACQCAYBJH6465-33-91 14:52:00 Test Item Value Reference Range Interpretation Comments Plt Morph (test code = Normal (07/10/20 9:52 Plt Morph) AM) [facility] CenterTzqzijsGAUQFINPGO6346-75-77 14:52:00 Test Item Value Reference Range Interpretation Comments Segs (test code = Segs) 76.0 45.0-75.0 [place] 922080-10-02 14:52:00 Test Item Value Reference Range Interpretation Comments Lymphocytes (test code = Lymphocytes) 11.5 20.0-40.0 [place] [address]-10-02 14:52:00 Test Item Value Reference Range Interpretation Comments Monocytes (test code = Monocytes) 8.9 2.0-12.0 [place] [address]-10-02 14:52:00 Test Item Value Reference Range Interpretation Comments Eosinophils (test code = 3.1 See_Comment [A utomated message] The Eosinophils) system which ge nerated this result tra nsmitted reference range : <=4.0. The reference r yared was not used to int erpret this result as normal/abnormal . [facility] CenterNfwchfkJXCUHLZJDA8827-47-32 14:52:00 Test Item Value Reference Range Interpretation Comments Basophils (test code = 0.5 See_Comment [Aut omated message] The Basophils) system which ge nerated this result tra nsmitted reference range : <=1.0. The reference r yared was not used to int erpret this result as normal/abnormal . [facility] CenterSpdyhogZUQELWEKZJ6852-78-69 14:52:00 Test Item Value Reference Range Interpretation Comments Neutrophils # (test code = Neutrophils 5.1 1.5-8.1 #) [facility] CenterOcaxhavWIEYRNTRND6630-84-38 14:52:00 Test Item Value Reference Range Interpretation Comments Lymphocytes # (test code = Lymphocytes 0.8 1.0-5.5 #) [place] 922080-10-02 14:52:00 Test Item Value Reference Range Interpretation Comments Monocytes # (test code 0.6 See_Comment [Aut omated message] The = Monocytes #) system which generated this result tra nsmitted reference range : <=0.8. The reference r yared was not used to int erpret this result as normal/abnormal . [facility] CenterCvqswtxZPYYNXTMTM6123-64-51 14:52:00 Test Item Value Reference Range Interpretation Comments Eosinophils # (test code 0.2 See_Comment [A utomated message] The = Eosinophils #) system whic h generated this result tra nsmitted reference range : <=0.5. The reference r yared was not used to int erpret this result as normal/abnormal . [facility] CenterQmmhpseMLQNDVDHRF2704-22-08 14:52:00 Test Item Value Reference Range Interpretation Comments WBC (test code = WBC) 6.6 3.7-10.4 [place] 922080-10-02 14:52:00 Test Item Value Reference Range Interpretation Comments RBC (test code = RBC) 2.76 4.70-6.10 [place] 922080-10-02 14:52:00 Test Item Value Reference Range Interpretation Comments Hgb (test code = Hgb) 8.1 14.0-18.0 [place] 922080-10-02 14:52:00 Test Item Value Reference Range Interpretation Comments Hct (test code = Hct) 23.3 42.0-54.0 [facility] CenterVbyntmmRSJMAUCKWE4607-55-69 14:52:00 Test Item Value Reference Range Interpretation Comments MCV (test code = MCV) 84.2 80.0-94.0 [facility] CenterEkukvnnYTLOHYNGEV2634-34-69 14:52:00 Test Item Value Reference Range Interpretation Comments MCH (test code = MCH) 29.3 pg 27.0-31.0 [facility] CenterQsrldpfDWNOIWJPQU7665-64-98 14:52:00 Test Item Value Reference Range Interpretation Comments MCHC (test code = MCHC) 34.8 32.0-36.0 [facility] CenterYisvzohMFYLVGGAFA6377-34-63 14:52:00 Test Item Value Reference Range Interpretation Comments RDW (test code = RDW) 13.7 11.5-14.5 [facility] CenterBgyegqkFOMEFLJDHM8232-02-84 14:52:00 Test Item Value Reference Range Interpretation Comments Platelet (test code = Platelet) 203 133-450 [facility] CenterNntivqzJSFKXUAWRO7070-43-79 14:52:00 Test Item Value Reference Range Interpretation Comments MPV (test code = MPV) 6.6 7.4-10.4 [facility] CenterLnfxqziBBJCQMEMGL7467-73-07 14:52:00 Test Item Value Reference Range Interpretation Comments RBC Morph (test code = Normal (07/10/20 9:52 RBC Morph) AM) [facility] CenterKdrtcwuNUVRIPHDHB0898-76-72 14:52:00 Test Item Value Reference Range Interpretation Comments Plt Morph (test code = Normal (07/10/20 9:52 Plt Morph) AM) [facility] CenterQamfojxNXBLADLSIY6528-90-30 14:52:00 Test Item Value Reference Range Interpretation Comments Segs (test code = Segs) 76.0 45.0-75.0 [facility] CenterIpaskzhTDOMXCEXCR5781-12-27 14:52:00 Test Item Value Reference Range Interpretation Comments Lymphocytes (test code = Lymphocytes) 11.5 20.0-40.0 [facility] CenterRmxxqtzAWRGMFTNMO3761-18-26 14:52:00 Test Item Value Reference Range Interpretation Comments Monocytes (test code = Monocytes) 8.9 2.0-12.0 [facility] CenterJtaqhclRVJYUIUQBC1099-69-54 14:52:00 Test Item Value Reference Range Interpretation Comments Eosinophils (test code = 3.1 See_Comment [A utomated message] The Eosinophils) system which ge nerated this result tra nsmitted reference range : <=4.0. The reference r yared was not used to int erpret this result as normal/abnormal . [place] 922080-10-02 14:52:00 Test Item Value Reference Range Interpretation Comments Basophils (test code = 0.5 See_Comment [Aut omated message] The Basophils) system which ge nerated this result tra nsmitted reference range : <=1.0. The reference r yared was not used to int erpret this result as normal/abnormal . [facility] CenterCjojrlsGURZCSLGGJ9312-23-26 14:52:00 Test Item Value Reference Range Interpretation Comments Neutrophils # (test code = Neutrophils 5.1 1.5-8.1 #) [place] 922080-10-02 14:52:00 Test Item Value Reference Range Interpretation Comments Lymphocytes # (test code = Lymphocytes 0.8 1.0-5.5 #) [facility] CenterRessqujDGFWSOTRIT2520-01-48 14:52:00 Test Item Value Reference Range Interpretation Comments Monocytes # (test code 0.6 See_Comment [Aut omated message] The = Monocytes #) system which generated this result tra nsmitted reference range : <=0.8. The reference r yared was not used to int erpret this result as normal/abnormal . [facility] CenterDyhoyflITORPDVUVP9476-88-51 14:52:00 Test Item Value Reference Range Interpretation Comments Eosinophils # (test code 0.2 See_Comment [A utomated message] The = Eosinophils #) system whic h generated this result tra nsmitted reference range : <=0.5. The reference r yared was not used to int erpret this result as normal/abnormal . [facility] CenterDuxtcwuYGFKIHELKS4683-66-83 14:52:00 Test Item Value Reference Range Interpretation Comments WBC (test code = WBC) 6.6 3.7-10.4 [place] 922080-10-02 14:52:00 Test Item Value Reference Range Interpretation Comments RBC (test code = RBC) 2.76 4.70-6.10 [place] 922080-10-02 14:52:00 Test Item Value Reference Range Interpretation Comments Hgb (test code = Hgb) 8.1 14.0-18.0 [facility] CenterRuwrzieGSEHPINPGO9277-40-87 14:52:00 Test Item Value Reference Range Interpretation Comments Hct (test code = Hct) 23.3 42.0-54.0 [facility] CenterSbqotpzJPJGQOHWKI0706-36-59 14:52:00 Test Item Value Reference Range Interpretation Comments MCV (test code = MCV) 84.2 80.0-94.0 [facility] CenterQjhsfyzGIMGRIHEYP5758-23-25 14:52:00 Test Item Value Reference Range Interpretation Comments MCH (test code = MCH) 29.3 pg 27.0-31.0 [facility] CenterNjtprgvJXKUMMCLBR2422-23-38 14:52:00 Test Item Value Reference Range Interpretation Comments MCHC (test code = MCHC) 34.8 32.0-36.0 [facility] CenterYlxmfekTIUSGRYSZB5191-23-44 14:52:00 Test Item Value Reference Range Interpretation Comments RDW (test code = RDW) 13.7 11.5-14.5 [facility] CenterWsmuzjiGDQZYALRYR8278-51-59 14:52:00 Test Item Value Reference Range Interpretation Comments Platelet (test code = Platelet) 203 133-450 [facility]szlmziNFWMIPAATH6575[facility]23-[facility] 14:52:00 Test Item Value Reference Range Interpretation Comments MPV (test code = MPV) 6.6 7.4-10.4 [facility]NnlynmhOHVSQMSBHM0734-55-41 14:52:00 Test Item Value Reference Range Interpretation Comments RBC Morph (test code = Normal (07/10/20 9:52 RBC Morph) AM) [facility] CenterCnurdolKTWINCBYEE9249-04-74 14:52:00 Test Item Value Reference Range Interpretation Comments Plt Morph (test code = Normal (07/10/20 9:52 Plt Morph) AM) [facility] CenterIgjnkkqIHJSKTQIME5764-67-85 14:52:00 Test Item Value Reference Range Interpretation Comments Segs (test code = Segs) 76.0 45.0-75.0 [place] [address]-10-02 14:52:00 Test Item Value Reference Range Interpretation Comments Lymphocytes (test code = Lymphocytes) 11.5 20.0-40.0 [place] [address]-10-02 14:52:00 Test Item Value Reference Range Interpretation Comments Monocytes (test code = Monocytes) 8.9 2.0-12.0 [place] [id number] 14:52:00 Test Item Value Reference Range Interpretation Comments Eosinophils (test code = 3.1 See_Comment [A utomated message] The Eosinophils) system which ge nerated this result tra nsmitted reference range : <=4.0. The reference r yared was not used to int erpret this result as normal/abnormal . [place] 922080-10-02 14:52:00 Test Item Value Reference Range Interpretation Comments Basophils (test code = 0.5 See_Comment [Aut omated message] The Basophils) system which ge nerated this result tra nsmitted reference range : <=1.0. The reference r yared was not used to int erpret this result as normal/abnormal . [facility] C[id number] 14:52:00 Test Item Value Reference Range Interpretation Comments Neutrophils # (test code = Neutrophils 5.1 1.5-8.1 #) [place] 922080-10-02 14:52:00 Test Item Value Reference Range Interpretation Comments Lymphocytes # (test code = Lymphocytes 0.8 1.0-5.5 #) [place] 922080-10-02 14:52:00 Test Item Value Reference Range Interpretation Comments Monocytes # (test code 0.6 See_Comment [Aut omated message] The = Monocytes #) system which generated this result tra nsmitted reference range : <=0.8. The reference r yared was not used to int erpret this result as normal/abnormal . [place] 922080-10-02 14:52:00 Test Item Value Reference Range Interpretation Comments Eosinophils # (test code 0.2 See_Comment [A utomated message] The = Eosinophils #) system whic h generated this result tra nsmitted reference range : <=0.5. The reference r yared was not used to int erpret this result as normal/abnormal . [facility] [id number] 14:49:00 Test Item Value Reference Range Interpretation Comments Total Protein (test code = Total 5.2 6.4-8.4 Protein) [facility]2020-10-01 14:49:00 Test Item Value Reference Range Interpretation Comments Albumin Lvl (test code = Albumin Lvl) 1.5 3.5-5.0 [facility] [employer] [id number] 14:49:00 Test Item Value Reference Range Interpretation Comments ALT (test code = ALT) 13 See_Comment [Auto mated message] The system which ge nerated this result transmit emerson reference range : <=65. The reference range was not used to interpr et this result as erinn l/abnormal. [facility] [employer] [id number] 14:49:00 Test Item Value Reference Range Interpretation Comments AST (test code = AST) 11 See_Comment [Auto mated message] The system which ge nerated this result transmit emerson reference range : <=37. The reference range was not used to interpr et this result as erinn l/abnormal. [employer] [id number] 14:49:00 Test Item Value Reference Range Interpretation Comments Alk Phos (test code = Alk Phos) 75 39-136 [facility] [employer] [id number] 14:49:00 Test Item Value Reference Range Interpretation Comments Bili Total (test code = Bili Total) 0.4 0.2-1.3 [facility] [employer] [id number] 14:49:00 Test Item Value Reference Range Interpretation Comments B/C Ratio (test code = B/C Ratio) 4 1 6-25 [facility] [employer] [id number] 14:49:00 Test Item Value Reference Range Interpretation Comments Globulin (test code = Globulin) 3.7 2.7-4.2 [facility] [employer] [id number] 14:49:00 Test Item Value Reference Range Interpretation Comments A/G Ratio (test code = A/G Ratio) 0.4 1 0.7-1.6 [facility] [employer] [id number] 14:49:00 Test Item Value Reference Range Interpretation Comments Phosphorus (test code = Phosphorus) 4.1 2.5-4.5 [facility] [employer] [id number] 14:49:00 Test Item Value Reference Range Interpretation Comments Total Protein (test code = Total 5.2 6.4-8.4 Protein) [facility] [employer] [id number] 14:49:00 Test Item Value Reference Range Interpretation Comments Albumin Lvl (test code = Albumin Lvl) 1.5 3.5-5.0 [facility] [employer] [id number] 14:49:00 Test Item Value Reference Range Interpretation Comments ALT (test code = ALT) 13 See_Comment [Auto mated message] The system which ge nerated this result transmit emerson reference range : <=65. The reference range was not used to interpr et this result as erinn l/abnormal. [facility] [employer] [id number] 14:49:00 Test Item Value Reference Range Interpretation Comments AST (test code = AST) 11 See_Comment [Auto mated message] The system which ge nerated this result transmit emerson reference range : <=37. The reference range was not used to interpr et this result as erinn l/abnormal. [facility] [employer] [id number] 14:49:00 Test Item Value Reference Range Interpretation Comments Alk Phos (test code = Alk Phos) 75 39-136 [facility] [id number] 14:49:00 Test Item Value Reference Range Interpretation Comments Bili Total (test code = Bili Total) 0.4 0.2-1.3 [facility] [id number] 14:49:00 Test Item Value Reference Range Interpretation Comments B/C Ratio (test code = B/C Ratio) 4 1 6-25 [facility] [id number] 14:49:00 Test Item Value Reference Range Interpretation Comments Globulin (test code = Globulin) 3.7 2.7-4.2 [facility] [id number] 14:49:00 Test Item Value Reference Range Interpretation Comments A/G Ratio (test code = A/G Ratio) 0.4 1 0.7-1.6 [facility] [id number] 14:49:00 Test Item Value Reference Range Interpretation Comments Phosphorus (test code = Phosphorus) 4.1 2.5-4.5 [facility] [id number] 14:49:00 Test Item Value Reference Range Interpretation Comments Total Protein (test code = Total 5.2 6.4-8.4 Protein) [facility] [id number] 14:49:00 Test Item Value Reference Range Interpretation Comments Albumin Lvl (test code = Albumin Lvl) 1.5 3.5-5.0 [facility] [employer] [id number] 14:49:00 Test Item Value Reference Range Interpretation Comments ALT (test code = ALT) 13 See_Comment [Auto mated message] The system which ge nerated this result transmit emerson reference range : <=65. The reference range was not used to interpr et this result as erinn l/abnormal. [facility] [employer] [id number] 14:49:00 Test Item Value Reference Range Interpretation Comments AST (test code = AST) 11 See_Comment [Auto mated message] The system which ge nerated this result transmit emerson reference range : <=37. The reference range was not used to interpr et this result as erinn l/abnormal. [facility] [employer] [id number] 14:49:00 Test Item Value Reference Range Interpretation Comments Alk Phos (test code = Alk Phos) 75 39-136 [facility] [employer] [id number] 14:49:00 Test Item Value Reference Range Interpretation Comments Bili Total (test code = Bili Total) 0.4 0.2-1.3 [facility] [employer] [id number] 14:49:00 Test Item Value Reference Range Interpretation Comments B/C Ratio (test code = B/C Ratio) 4 1 6-25 [facility] [employer] [id number] 14:49:00 Test Item Value Reference Range Interpretation Comments Globulin (test code = Globulin) 3.7 2.7-4.2 [facility] [employer] [id number] 14:49:00 Test Item Value Reference Range Interpretation Comments A/G Ratio (test code = A/G Ratio) 0.4 1 0.7-1.6 [facility] [employer] [id number] 14:49:00 Test Item Value Reference Range Interpretation Comments Phosphorus (test code = Phosphorus) 4.1 2.5-4.5 [facility] [employer] [id number] 14:49:00 Test Item Value Reference Range Interpretation Comments Total Protein (test code = Total 5.2 6.4-8.4 Protein) [facility] [employer] [id number] 14:49:00 Test Item Value Reference Range Interpretation Comments Albumin Lvl (test code = Albumin Lvl) 1.5 3.5-5.0 [facility] [employer] [id number] 14:49:00 Test Item Value Reference Range Interpretation Comments ALT (test code = ALT) 13 See_Comment [Auto mated message] The system which ge nerated this result transmit emerson reference range : <=65. The reference range was not used to interpr et this result as erinn l/abnormal. [facility] [employer] [id number] 14:49:00 Test Item Value Reference Range Interpretation Comments AST (test code = AST) 11 See_Comment [Auto mated message] The system which ge nerated this result transmit emerson reference range : <=37. The reference range was not used to interpr et this result as erinn l/abnormal. [facility] [employer] [id number] 14:49:00 Test Item Value Reference Range Interpretation Comments Alk Phos (test code = Alk Phos) 75 39-136 [facility] [employer] [id number] 14:49:00 Test Item Value Reference Range Interpretation Comments Bili Total (test code = Bili Total) 0.4 0.2-1.3 [facility] [employer] [id number] 14:49:00 Test Item Value Reference Range Interpretation Comments B/C Ratio (test code = B/C Ratio) 4 1 6-25 [facility] [id number] 14:49:00 Test Item Value Reference Range Interpretation Comments Globulin (test code = Globulin) 3.7 2.7-4.2 [facility] [employer] [id number] 14:49:00 Test Item Value Reference Range Interpretation Comments A/G Ratio (test code = A/G Ratio) 0.4 1 0.7-1.6 [facility] [id number] 14:49:00 Test Item Value Reference Range Interpretation Comments Phosphorus (test code = Phosphorus) 4.1 2.5-4.5 [id number] 09:57:00 Test Item Value Reference Range Interpretation Comments Vanco Lvl (test code = Vanco Lvl) 15.9 [facility] HospitalRqqzbaxZVXAVHJREJ1805-15-51 09:57:00 Test Item Value Reference Range Interpretation Comments Vanco Lvl (test code = Vanco Lvl) 15.9 [facility] [id number] 09:57:00 Test Item Value Reference Range Interpretation Comments Vanco Lvl (test code = Vanco Lvl) 15.9 [facility] [id number] 09:57:00 Test Item Value Reference Range Interpretation Comments Vanco Lvl (test code = Vanco Lvl) 15.9 [facility] [id number] 18:59:00 Test Item Value Reference Range Interpretation Comments Vanco Lvl (test code = Vanco Lvl) 15.4 [id number] 18:59:00 Test Item Value Reference Range Interpretation Comments Vanco Lvl (test code = Vanco Lvl) 15.4 [facility] H[id number] 18:59:00 Test Item Value Reference Range Interpretation Comments Vanco Lvl (test code = Vanco Lvl) 15.4 [facility] [id number] 18:59:00 Test Item Value Reference Range Interpretation Comments Vanco Lvl (test code = Vanco Lvl) 15.4 [facility]annG[facility]ain [id number] 15:00:00 Test Item Value Reference Range Interpretation Comments Gram Stain Report No Organisms Seen Few (test code = Gram WBC's Stain Report) [facility] Aspirate/Body Fluid/[id number] 15:00:00 Test Item Value Reference Range Interpretation Comments Culture: Aspirate/Body Fluid/Tissue No Growth (test code = Culture: Aspirate/Body Fluid/Tissue) [facility]annG[facility] [id number] 15:00:00 Test Item Value Reference Range Interpretation Comments Gram Stain Report No Organisms Seen Few (test code = Gram WBC's Stain Report) [facility] Aspirate/Body Fluid/[id number] 15:00:00 Test Item Value Reference Range Interpretation Comments Culture: Aspirate/Body Fluid/Tissue No Growth (test code = Culture: Aspirate/Body Fluid/Tissue) [facility]annG[facility] [id number] 15:00:00 Test Item Value Reference Range Interpretation Comments Gram Stain Report No Organisms Seen Few (test code = Gram WBC's Stain Report) [facility] Aspirate/Body Fluid/[id number] 15:00:00 Test Item Value Reference Range Interpretation Comments Culture: Aspirate/Body Fluid/Tissue No Growth (test code = Culture: Aspirate/Body Fluid/Tissue) [facility] [id number] 15:00:00 Test Item Value Reference Range Interpretation Comments Gram Stain Report No Organisms Seen Few (test code = Gram WBC's Stain Report) [facility] Aspirate/Body Fluid/[id number] 15:00:00 Test Item Value Reference Range Interpretation Comments Culture: Aspirate/Body Fluid/Tissue No Growth (test code = Culture: Aspirate/Body Fluid/Tissue) [facility]annG[facility] [id number] 15:00:00 Test Item Value Reference Range Interpretation Comments Gram Stain Report Many WBC's No Organisms (test code = Gram Seen Stain Report) [facility] Aspirate/Body Fluid/[id number] 15:00:00 Test Item Value Reference Range Interpretation Comments Culture: Aspirate/Body Fluid/Tissue No Growth (test code = Culture: Aspirate/Body Fluid/Tissue) [facility]annG[facility] [id number] 15:00:00 Test Item Value Reference Range Interpretation Comments Gram Stain Report Many WBC's No Organisms (test code = Gram Seen Stain Report) [facility]annlture: Aspirate/Body Fluid/[id number] 15:00:00 Test Item Value Reference Range Interpretation Comments Culture: Aspirate/Body Fluid/Tissue No Growth (test code = Culture: Aspirate/Body Fluid/Tissue) [facility]annG[facility] [id number] 15:00:00 Test Item Value Reference Range Interpretation Comments Gram Stain Report Many WBC's No Organisms (test code = Gram Seen Stain Report) [facility]annlture: Aspirate/Body Fluid/[id number] 15:00:00 Test Item Value Reference Range Interpretation Comments Culture: Aspirate/Body Fluid/Tissue No Growth (test code = Culture: Aspirate/Body Fluid/Tissue) [facility]annG[facility] [id number] 15:00:00 Test Item Value Reference Range Interpretation Comments Gram Stain Report Many WBC's No Organisms (test code = Gram Seen Stain Report) [facility] Aspirate/Body Fluid/[id number] 15:00:00 Test Item Value Reference Range Interpretation Comments Culture: Aspirate/Body Fluid/Tissue No Growth (test code = Culture: Aspirate/Body Fluid/Tissue) [facility]ann[facility] [id number] 13:30:00 Test Item Value Reference Range Interpretation Comments Gram Stain Report No Organisms Seen Many (test code = Gram WBC's Stain Report) [facility] Aspirate/Body Fluid/[id number] 13:30:00 Test Item Value Reference Range Interpretation Comments Culture: Aspirate/Body Fluid/Tissue No Growth (test code = Culture: Aspirate/Body Fluid/Tissue) [facility]annG[facility] [id number] 13:30:00 Test Item Value Reference Range Interpretation Comments Gram Stain Report No Organisms Seen Many (test code = Gram WBC's Stain Report) [facility] Aspirate/Body Fluid/[id number] 13:30:00 Test Item Value Reference Range Interpretation Comments Culture: Aspirate/Body Fluid/Tissue No Growth (test code = Culture: Aspirate/Body Fluid/Tissue) [facility]annG[facility] [id number] 13:30:00 Test Item Value Reference Range Interpretation Comments Gram Stain Report No Organisms Seen Many (test code = Gram WBC's Stain Report) [facility]annlture: Aspirate/Body Fluid/[id number] 13:30:00 Test Item Value Reference Range Interpretation Comments Culture: Aspirate/Body Fluid/Tissue No Growth (test code = Culture: Aspirate/Body Fluid/Tissue) [facility]annG[facility] [id number] 13:30:00 Test Item Value Reference Range Interpretation Comments Gram Stain Report No Organisms Seen Many (test code = Gram WBC's Stain Report) [facility]: Aspirate/Body Fluid/[id number] 13:30:00 Test Item Value Reference Range Interpretation Comments Culture: Aspirate/Body Fluid/Tissue No Growth (test code = Culture: Aspirate/Body Fluid/Tissue) [facility] HospitalEm[facility] Mobile [id number] 11:40:00 Test Item Value Reference Range Interpretation Comments ABO/Rh (test code = ABO/Rh) O POS [facility] [employer] [id number] 11:40:00 Test Item Value Reference Range Interpretation Comments Antibody Scrn (test Negative (07/06/20 6:40 code = Antibody Scrn) AM) [facility] [id number] 11:40:00 Test Item Value Reference Range Interpretation Comments ABO/Rh (test code = ABO/Rh) O POS [facility] [employer] [id number] 11:40:00 Test Item Value Reference Range Interpretation Comments Antibody Scrn (test Negative (07/06/20 6:40 code = Antibody Scrn) AM) [facility] [id number] 11:40:00 Test Item Value Reference Range Interpretation Comments ABO/Rh (test code = ABO/Rh) O POS [facility] [employer] [id number] 11:40:00 Test Item Value Reference Range Interpretation Comments Antibody Scrn (test Negative (07/06/20 6:40 code = Antibody Scrn) AM) [facility] [employer] [id number] 11:40:00 Test Item Value Reference Range Interpretation Comments ABO/Rh (test code = ABO/Rh) O POS [facility] [employer] [id number] 11:40:00 Test Item Value Reference Range Interpretation Comments Antibody Scrn (test Negative (07/06/20 6:40 code = Antibody Scrn) AM) [facility] [employer] [id number] 11:07:00 Test Item Value Reference Range Interpretation Comments Troponin-I (test code no gt See_Comment [Auto mated message] The = Troponin-I) system which g enerated this result transmit emerson reference range : <=0.40. The reference r yared was not used to interpr et this result as erinn l/abnormal. [employer] [id number] 11:07:00 Test Item Value Reference Range Interpretation Comments Magnesium Lvl (test code = Magnesium 1.8 1.8-2.4 Lvl) [facility] [employer] [id number] 11:07:00 Test Item Value Reference Range Interpretation Comments Phosphorus (test code = Phosphorus) 5.3 2.5-4.5 [facility] [employer] [id number] 11:07:00 Test Item Value Reference Range Interpretation Comments Lipase Lvl (test code = Lipase Lvl) 48 73-393 [facility] [employer] [id number] 11:07:00 Test Item Value Reference Range Interpretation Comments Total Protein (test code = Total 5.3 6.4-8.4 Protein) [facility] [employer] [id number] 11:07:00 Test Item Value Reference Range Interpretation Comments Albumin Lvl (test code = Albumin Lvl) 1.6 3.5-5.0 [facility] [id number] 11:07:00 Test Item Value Reference Range Interpretation Comments Globulin (test code = Globulin) 3.7 2.7-4.2 [place] [id number] 11:07:00 Test Item Value Reference Range Interpretation Comments A/G Ratio (test code = A/G Ratio) 0.4 1 0.7-1.6 [facility] [id number] 11:07:00 Test Item Value Reference Range Interpretation Comments ALT (test code = ALT) 12 See_Comment [Auto mated message] The system which ge nerated this result transmit emerson reference range : <=65. The reference range was not used to interpr et this result as erinn l/abnormal. [facility] [id number] 11:07:00 Test Item Value Reference Range Interpretation Comments AST (test code = AST) 13 See_Comment [Auto mated message] The system which ge nerated this result transmit emerson reference range : <=37. The reference range was not used to interpr et this result as erinn l/abnormal. [facility] [id number] 11:07:00 Test Item Value Reference Range Interpretation Comments Alk Phos (test code = Alk Phos) 67 39-136 [facility] [id number] 11:07:00 Test Item Value Reference Range Interpretation Comments Bili Total (test code = Bili Total) 0.6 0.2-1.3 [facility] [id number] 11:07:00 Test Item Value Reference Range Interpretation Comments Bili Direct (test code no gt See_Comment [Aut omated message] The = Bili Direct) system which generated this result tra nsmitted reference range : <=0.3. The reference r yared was not used to int erpret this result as erinn l/abnormal. [facility] [id number] 11:07:00 Test Item Value Reference Range Interpretation Comments Bili Indirect Unable to See_Comment [Automated (test code = Bili Calculate message] T he system Indirect) which generated this result transmitted reference range : <=1.0. The reference range was not used to interpret this result as normal/abnormal . [facility] [id number] 11:07:00 Test Item Value Reference Range Interpretation Comments Lactic Acid Lvl (test code = Lactic 0.6 0.5-2.2 Acid Lvl) [id number] 11:07:00 Test Item Value Reference Range Interpretation Comments PTT (test code = PTT) 40.6 s 22.9-35.8 [facility] HospitalCrzgvfrEPWWAMXJJD8640-51-31 11:07:00 Test Item Value Reference Range Interpretation Comments PT (test code = PT) 14.0 s 12.0-14.7 [facility] HospitalDakrnzfWDFHTWKGSR2886-17-33 11:07:00 Test Item Value Reference Range Interpretation Comments INR (test code = INR) 1.08 1 0.85-1.17 [facility]CARD[facility] [id number] 11:07:00 Test Item Value Reference Range Interpretation Comments Troponin-I (test code no gt See_Comment [Auto mated message] The = Troponin-I) system which g enerated this result transmit emerson reference range : <=0.40. The reference r yared was not used to interpr et this result as erinn l/abnormal. [facility] [id number] 11:07:00 Test Item Value Reference Range Interpretation Comments Magnesium Lvl (test code = Magnesium 1.8 1.8-2.4 Lvl) [facility]2020-09-28 11:07:00 Test Item Value Reference Range Interpretation Comments Phosphorus (test code = Phosphorus) 5.3 2.5-4.5 [facility] [id number] 11:07:00 Test Item Value Reference Range Interpretation Comments Lipase Lvl (test code = Lipase Lvl) 48 73-393 [facility]2020-09-28 11:07:00 Test Item Value Reference Range Interpretation Comments Total Protein (test code = Total 5.3 6.4-8.4 Protein) [facility]2020-09-28 11:07:00 Test Item Value Reference Range Interpretation Comments Albumin Lvl (test code = Albumin Lvl) 1.6 3.5-5.0 [facility] [id number] 11:07:00 Test Item Value Reference Range Interpretation Comments Globulin (test code = Globulin) 3.7 2.7-4.2 [place] [id number] 11:07:00 Test Item Value Reference Range Interpretation Comments A/G Ratio (test code = A/G Ratio) 0.4 1 0.7-1.6 [place] [id number] 11:07:00 Test Item Value Reference Range Interpretation Comments ALT (test code = ALT) 12 See_Comment [Auto mated message] The system which ge nerated this result transmit emerson reference range : <=65. The reference range was not used to interpr et this result as erinn l/abnormal. [place] 124950-09-28 11:07:00 Test Item Value Reference Range Interpretation Comments AST (test code = AST) 13 See_Comment [Auto mated message] The system which ge nerated this result transmit emerson reference range : <=37. The reference range was not used to interpr et this result as erinn l/abnormal. [place] 124950-09-28 11:07:00 Test Item Value Reference Range Interpretation Comments Alk Phos (test code = Alk Phos) 67 39-136 [place] 124950-09-28 11:07:00 Test Item Value Reference Range Interpretation Comments Bili Total (test code = Bili Total) 0.6 0.2-1.3 [place] 124950-09-28 11:07:00 Test Item Value Reference Range Interpretation Comments Bili Direct (test code no gt See_Comment [Aut omated message] The = Bili Direct) system which generated this result tra nsmitted reference range : <=0.3. The reference r yared was not used to int erpret this result as erinn l/abnormal. [place] 124950-09-28 11:07:00 Test Item Value Reference Range Interpretation Comments Bili Indirect Unable to See_Comment [Automated (test code = Bili Calculate message] T he system Indirect) which generated this result transmitted reference range : <=1.0. The reference range was not used to interpret this result as normal/abnormal . [place] 124950-09-28 11:07:00 Test Item Value Reference Range Interpretation Comments Lactic Acid Lvl (test code = Lactic 0.6 0.5-2.2 Acid Lvl) [id number] 11:07:00 Test Item Value Reference Range Interpretation Comments PTT (test code = PTT) 40.6 s 22.9-35.8 [id number] 11:07:00 Test Item Value Reference Range Interpretation Comments PT (test code = PT) 14.0 s 12.0-14.7 [facility] Ho[id number] 11:07:00 Test Item Value Reference Range Interpretation Comments INR (test code = INR) 1.08 1 0.85-1.17 [facility]CARDIAC [id number] 11:07:00 Test Item Value Reference Range Interpretation Comments Troponin-I (test code no gt See_Comment [Auto mated message] The = Troponin-I) system which g enerated this result transmit emerson reference range : <=0.40. The reference r yared was not used to interpr et this result as erinn l/abnormal. [facility] [id number] 11:07:00 Test Item Value Reference Range Interpretation Comments Magnesium Lvl (test code = Magnesium 1.8 1.8-2.4 Lvl) [facility]Your[facility] [id number] 11:07:00 Test Item Value Reference Range Interpretation Comments Phosphorus (test code = Phosphorus) 5.3 2.5-4.5 [facility] [id number] 11:07:00 Test Item Value Reference Range Interpretation Comments Lipase Lvl (test code = Lipase Lvl) 48 73-393 [facility]2020-09-28 11:07:00 Test Item Value Reference Range Interpretation Comments Total Protein (test code = Total 5.3 6.4-8.4 Protein) [facility] [id number] 11:07:00 Test Item Value Reference Range Interpretation Comments Albumin Lvl (test code = Albumin Lvl) 1.6 3.5-5.0 [facility] [id number] 11:07:00 Test Item Value Reference Range Interpretation Comments Globulin (test code = Globulin) 3.7 2.7-4.2 [facility] [id number] 11:07:00 Test Item Value Reference Range Interpretation Comments A/G Ratio (test code = A/G Ratio) 0.4 1 0.7-1.6 [place] 124950-09-28 11:07:00 Test Item Value Reference Range Interpretation Comments ALT (test code = ALT) 12 See_Comment [Auto mated message] The system which ge nerated this result transmit emerson reference range : <=65. The reference range was not used to interpr et this result as erinn l/abnormal. [facility] [id number] 11:07:00 Test Item Value Reference Range Interpretation Comments AST (test code = AST) 13 See_Comment [Auto mated message] The system which ge nerated this result transmit emerson reference range : <=37. The reference range was not used to interpr et this result as erinn l/abnormal. [facility] [id number] 11:07:00 Test Item Value Reference Range Interpretation Comments Alk Phos (test code = Alk Phos) 67 39-136 [facility] [id number] 11:07:00 Test Item Value Reference Range Interpretation Comments Bili Total (test code = Bili Total) 0.6 0.2-1.3 [facility] [id number] 11:07:00 Test Item Value Reference Range Interpretation Comments Bili Direct (test code no gt See_Comment [Aut omated message] The = Bili Direct) system which generated this result tra nsmitted reference range : <=0.3. The reference r yared was not used to int erpret this result as erinn l/abnormal. [facility] [id number] 11:07:00 Test Item Value Reference Range Interpretation Comments Bili Indirect Unable to See_Comment [Automated (test code = Bili Calculate message] T he system Indirect) which generated this result transmitted reference range : <=1.0. The reference range was not used to interpret this result as normal/abnormal . [facility] [id number] 11:07:00 Test Item Value Reference Range Interpretation Comments Lactic Acid Lvl (test code = Lactic 0.6 0.5-2.2 Acid Lvl) [facility] [id number] 11:07:00 Test Item Value Reference Range Interpretation Comments PTT (test code = PTT) 40.6 s 22.9-35.8 [facility] HospitalIuicerzURQKVEHJGE6956-02-77 11:07:00 Test Item Value Reference Range Interpretation Comments PT (test code = PT) 14.0 s 12.0-14.7 [facility] H[id number] 11:07:00 Test Item Value Reference Range Interpretation Comments INR (test code = INR) 1.08 1 0.85-1.17 [facility]CARD[facility] [id number] 11:07:00 Test Item Value Reference Range Interpretation Comments Troponin-I (test code no gt See_Comment [Auto mated message] The = Troponin-I) system which g enerated this result transmit emerson reference range : <=0.40. The reference r yared was not used to interpr et this result as erinn l/abnormal. [facility] [employer] [id number] 11:07:00 Test Item Value Reference Range Interpretation Comments Magnesium Lvl (test code = Magnesium 1.8 1.8-2.4 Lvl) [facility] [id number] 11:07:00 Test Item Value Reference Range Interpretation Comments Phosphorus (test code = Phosphorus) 5.3 2.5-4.5 [facility] [id number] 11:07:00 Test Item Value Reference Range Interpretation Comments Lipase Lvl (test code = Lipase Lvl) 48 73-393 [facility] [id number] 11:07:00 Test Item Value Reference Range Interpretation Comments Total Protein (test code = Total 5.3 6.4-8.4 Protein) [facility] [id number] 11:07:00 Test Item Value Reference Range Interpretation Comments Albumin Lvl (test code = Albumin Lvl) 1.6 3.5-5.0 [facility] [id number] 11:07:00 Test Item Value Reference Range Interpretation Comments Globulin (test code = Globulin) 3.7 2.7-4.2 [facility] [id number] 11:07:00 Test Item Value Reference Range Interpretation Comments A/G Ratio (test code = A/G Ratio) 0.4 1 0.7-1.6 [facility] [id number] 11:07:00 Test Item Value Reference Range Interpretation Comments ALT (test code = ALT) 12 See_Comment [Auto mated message] The system which ge nerated this result transmit emerson reference range : <=65. The reference range was not used to interpr et this result as erinn l/abnormal. [facility] [id number] 11:07:00 Test Item Value Reference Range Interpretation Comments AST (test code = AST) 13 See_Comment [Auto mated message] The system which ge nerated this result transmit emerson reference range : <=37. The reference range was not used to interpr et this result as erinn l/abnormal. [facility] [id number] 11:07:00 Test Item Value Reference Range Interpretation Comments Alk Phos (test code = Alk Phos) 67 39-136 [facility] [id number] 11:07:00 Test Item Value Reference Range Interpretation Comments Bili Total (test code = Bili Total) 0.6 0.2-1.3 [facility] [id number] 11:07:00 Test Item Value Reference Range Interpretation Comments Bili Direct (test code no gt See_Comment [Aut omated message] The = Bili Direct) system which generated this result tra nsmitted reference range : <=0.3. The reference r yared was not used to int erpret this result as erinn l/abnormal. [facility] [id number] 11:07:00 Test Item Value Reference Range Interpretation Comments Bili Indirect Unable to See_Comment [Automated (test code = Bili Calculate message] T he system Indirect) which generated this result transmitted reference range : <=1.0. The reference range was not used to interpret this result as normal/abnormal . [facility] [id number] 11:07:00 Test Item Value Reference Range Interpretation Comments Lactic Acid Lvl (test code = Lactic 0.6 0.5-2.2 Acid Lvl) [facility] H[id number] 11:07:00 Test Item Value Reference Range Interpretation Comments PTT (test code = PTT) 40.6 s 22.9-35.8 [place] [id number] 11:07:00 Test Item Value Reference Range Interpretation Comments PT (test code = PT) 14.0 s 12.0-14.7 [place] [id number] 11:07:00 Test Item Value Reference Range Interpretation Comments INR (test code = INR) 1.08 1 0.85-1.17 [place] 124950-08-13 13:56:00 Test Item Value Reference Range Interpretation Comments Glucose Lvl (test code = Glucose Lvl) 97 70-99 [place] 124950-08-13 13:56:00 Test Item Value Reference Range Interpretation Comments BUN (test code = BUN) 41 7-22 [place] 124950-08-13 13:56:00 Test Item Value Reference Range Interpretation Comments Creatinine Lvl (test code = Creatinine 10.50 0.50-1.40 Lvl) [place] 124950-08-13 13:56:00 Test Item Value Reference Range Interpretation Comments Sodium Lvl (test code = Sodium Lvl) 133 135-145 [place] 124950-08-13 13:56:00 Test Item Value Reference Range Interpretation Comments Potassium Lvl (test code = Potassium 3.2 3.5-5.1 Lvl) [facility]2020-08-13 13:56:00 Test Item Value Reference Range Interpretation Comments Chloride Lvl (test code = Chloride Lvl) 94 95-109 [facility]2020-08-13 13:56:00 Test Item Value Reference Range Interpretation Comments CO2 (test code = CO2) 28 24-32 [place] 124950-08-13 13:56:00 Test Item Value Reference Range Interpretation Comments Calcium Lvl (test code = Calcium Lvl) 9.5 8.5-10.5 [facility]2020-08-13 13:56:00 Test Item Value Reference Range Interpretation Comments AGAP (test code = AGAP) 14.2 10.0-20.0 [place] 124950-08-13 13:56:00 Test Item Value Reference Range Interpretation Comments eGFR (test code = eGFR) 5 [place] 124950-08-13 13:56:00 Test Item Value Reference Range Interpretation Comments Total Protein (test code = Total 5.4 6.4-8.4 Protein) [place] 124950-08-13 13:56:00 Test Item Value Reference Range Interpretation Comments Albumin Lvl (test code = Albumin Lvl) 2.3 3.5-5.0 [place] 124950-08-13 13:56:00 Test Item Value Reference Range Interpretation Comments ALT (test code = ALT) 16 See_Comment [Auto mated message] The system which ge nerated this result transmit emerson reference range : <=65. The reference range was not used to interpr et this result as erinn l/abnormal. [facility] [employer] [id number] 13:56:00 Test Item Value Reference Range Interpretation Comments AST (test code = AST) 26 See_Comment [Auto mated message] The system which ge nerated this result transmit emerson reference range : <=37. The reference range was not used to interpr et this result as erinn l/abnormal. [facility] [employer] [id number] 13:56:00 Test Item Value Reference Range Interpretation Comments Alk Phos (test code = Alk Phos) 82 39-136 [facility] [employer] [id number] 13:56:00 Test Item Value Reference Range Interpretation Comments Bili Total (test code = Bili Total) 0.4 0.2-1.3 [facility] [id number] 13:56:00 Test Item Value Reference Range Interpretation Comments Bili Direct (test code 0.1 See_Comment [Aut omated message] The = Bili Direct) system which generated this result tra nsmitted reference range : <=0.3. The reference r yared was not used to int erpret this result as erinn l/abnormal. [facility] [employer] [id number] 13:56:00 Test Item Value Reference Range Interpretation Comments Bili Indirect (test 0.3 See_Comment [Automa emerson message] The code = Bili Indirect) system which generated this result tra nsmitted reference range : <=1.0. The reference r yared was not used to int erpret this result as normal/abnormal . [facility] [employer] [id number] 13:56:00 Test Item Value Reference Range Interpretation Comments Globulin (test code = Globulin) 3.1 2.7-4.2 [facility] [employer] [id number] 13:56:00 Test Item Value Reference Range Interpretation Comments A/G Ratio (test code = A/G Ratio) 0.7 1 0.7-1.6 [facility] [id number] 13:56:00 Test Item Value Reference Range Interpretation Comments Lipase Lvl (test code = Lipase Lvl) 41 73-393 [place] 922080-08-13 13:56:00 Test Item Value Reference Range Interpretation Comments WBC (test code = WBC) 5.3 3.7-10.4 [place] 436[address]-08-13 13:56:00 Test Item Value Reference Range Interpretation Comments RBC (test code = RBC) 2.56 4.70-6.10 [place] 436[address]-08-13 13:56:00 Test Item Value Reference Range Interpretation Comments Hgb (test code = Hgb) 7.6 14.0-18.0 [place] 436[address]-08-13 13:56:00 Test Item Value Reference Range Interpretation Comments Hct (test code = Hct) 21.8 42.0-54.0 [place] 436[address]-08-13 13:56:00 Test Item Value Reference Range Interpretation Comments MCV (test code = MCV) 85.2 80.0-94.0 [place] 436[address]-08-13 13:56:00 Test Item Value Reference Range Interpretation Comments MCH (test code = MCH) 29.6 pg 27.0-31.0 [place] 436[address]-08-13 13:56:00 Test Item Value Reference Range Interpretation Comments MCHC (test code = MCHC) 34.8 32.0-36.0 [place] 436[address]-08-13 13:56:00 Test Item Value Reference Range Interpretation Comments RDW (test code = RDW) 13.9 11.5-14.5 [place] [address]-08-13 13:56:00 Test Item Value Reference Range Interpretation Comments Platelet (test code = Platelet) 170 133-450 [place] 436[address]-08-13 13:56:00 Test Item Value Reference Range Interpretation Comments MPV (test code = MPV) 7.1 7.4-10.4 [place] [address]-08-13 13:56:00 Test Item Value Reference Range Interpretation Comments Segs (test code = Segs) 67.4 45.0-75.0 [place] [address]-08-13 13:56:00 Test Item Value Reference Range Interpretation Comments Lymphocytes (test code = Lymphocytes) 15.2 20.0-40.0 [place] [address]-08-13 13:56:00 Test Item Value Reference Range Interpretation Comments Monocytes (test code = Monocytes) 8.6 2.0-12.0 [place] [address]-08-13 13:56:00 Test Item Value Reference Range Interpretation Comments Eosinophils (test code = 7.8 See_Comment [A utomated message] The Eosinophils) system which ge nerated this result tra nsmitted reference range : <=4.0. The reference r yared was not used to int erpret this result as normal/abnormal . [place] [address]-08-13 13:56:00 Test Item Value Reference Range Interpretation Comments Basophils (test code = 1.0 See_Comment [Aut omated message] The Basophils) system which ge nerated this result tra nsmitted reference range : <=1.0. The reference r yared was not used to int erpret this result as normal/abnormal . [place] [address]-08-13 13:56:00 Test Item Value Reference Range Interpretation Comments Neutrophils # (test code = Neutrophils 3.6 1.5-8.1 #) [place] [address]-08-13 13:56:00 Test Item Value Reference Range Interpretation Comments Lymphocytes # (test code = Lymphocytes 0.8 1.0-5.5 #) [place] [address]-08-13 13:56:00 Test Item Value Reference Range Interpretation Comments Monocytes # (test code 0.5 See_Comment [Aut omated message] The = Monocytes #) system which generated this result tra nsmitted reference range : <=0.8. The reference r yared was not used to int erpret this result as normal/abnormal . [place] [address]-08-13 13:56:00 Test Item Value Reference Range Interpretation Comments Eosinophils # (test code 0.4 See_Comment [A utomated message] The = Eosinophils #) system whic h generated this result tra nsmitted reference range : <=0.5. The reference r yared was not used to int erpret this result as normal/abnormal . [place] [address]-08-13 13:56:00 Test Item Value Reference Range Interpretation Comments Basophils # (test code 0.1 See_Comment [Aut omated message] The = Basophils #) system which generated this result tra nsmitted reference range : <=0.2. The reference r yared was not used to int erpret this result as normal/abnormal . [facility]2020-08-13 13:56:00 Test Item Value Reference Range Interpretation Comments Glucose Lvl (test code = Glucose Lvl) 97 70-99 [place] 124950-08-13 13:56:00 Test Item Value Reference Range Interpretation Comments BUN (test code = BUN) 41 7-22 [place] 124950-08-13 13:56:00 Test Item Value Reference Range Interpretation Comments Creatinine Lvl (test code = Creatinine 10.50 0.50-1.40 Lvl) [place] 124950-08-13 13:56:00 Test Item Value Reference Range Interpretation Comments Sodium Lvl (test code = Sodium Lvl) 133 135-145 [place] 124950-08-13 13:56:00 Test Item Value Reference Range Interpretation Comments Potassium Lvl (test code = Potassium 3.2 3.5-5.1 Lvl) [facility]2020-08-13 13:56:00 Test Item Value Reference Range Interpretation Comments Chloride Lvl (test code = Chloride Lvl) 94 95-109 [place] 124950-08-13 13:56:00 Test Item Value Reference Range Interpretation Comments CO2 (test code = CO2) 28 24-32 [facility]2020-08-13 13:56:00 Test Item Value Reference Range Interpretation Comments Calcium Lvl (test code = Calcium Lvl) 9.5 8.5-10.5 [facility]2020-08-13 13:56:00 Test Item Value Reference Range Interpretation Comments AGAP (test code = AGAP) 14.2 10.0-20.0 [facility]2020-08-13 13:56:00 Test Item Value Reference Range Interpretation Comments eGFR (test code = eGFR) 5 [place] 124950-08-13 13:56:00 Test Item Value Reference Range Interpretation Comments Total Protein (test code = Total 5.4 6.4-8.4 Protein) [place] 124950-08-13 13:56:00 Test Item Value Reference Range Interpretation Comments Albumin Lvl (test code = Albumin Lvl) 2.3 3.5-5.0 [place] 124950-08-13 13:56:00 Test Item Value Reference Range Interpretation Comments ALT (test code = ALT) 16 See_Comment [Auto mated message] The system which ge nerated this result transmit emerson reference range : <=65. The reference range was not used to interpr et this result as erinn l/abnormal. [facility] [employer] [id number] 13:56:00 Test Item Value Reference Range Interpretation Comments AST (test code = AST) 26 See_Comment [Auto mated message] The system which ge nerated this result transmit emerson reference range : <=37. The reference range was not used to interpr et this result as erinn l/abnormal. [facility] [employer] [id number] 13:56:00 Test Item Value Reference Range Interpretation Comments Alk Phos (test code = Alk Phos) 82 39-136 [facility] [employer] [id number] 13:56:00 Test Item Value Reference Range Interpretation Comments Bili Total (test code = Bili Total) 0.4 0.2-1.3 [facility] [employer] [id number] 13:56:00 Test Item Value Reference Range Interpretation Comments Bili Direct (test code 0.1 See_Comment [Aut omated message] The = Bili Direct) system which generated this result tra nsmitted reference range : <=0.3. The reference r yared was not used to int erpret this result as erinn l/abnormal. [facility] [employer] [id number] 13:56:00 Test Item Value Reference Range Interpretation Comments Bili Indirect (test 0.3 See_Comment [Automa emerson message] The code = Bili Indirect) system which generated this result tra nsmitted reference range : <=1.0. The reference r yared was not used to int erpret this result as normal/abnormal . [facility] [employer] [id number] 13:56:00 Test Item Value Reference Range Interpretation Comments Globulin (test code = Globulin) 3.1 2.7-4.2 [facility] [employer] [id number] 13:56:00 Test Item Value Reference Range Interpretation Comments A/G Ratio (test code = A/G Ratio) 0.7 1 0.7-1.6 [facility] [employer] [id number] 13:56:00 Test Item Value Reference Range Interpretation Comments Lipase Lvl (test code = Lipase Lvl) 41 73-393 [facility] CenterHaaxyulSZYQYPCCTX3427-04-60 13:56:00 Test Item Value Reference Range Interpretation Comments WBC (test code = WBC) 5.3 3.7-10.4 [facility] CenterIscsrsoOSELAQWVPX7454-61-65 13:56:00 Test Item Value Reference Range Interpretation Comments RBC (test code = RBC) 2.56 4.70-6.10 [facility] CenterPcpwdccGODYEJUCZE0032-87-40 13:56:00 Test Item Value Reference Range Interpretation Comments Hgb (test code = Hgb) 7.6 14.0-18.0 [facility] CenterFrtssjmPFGXPEAHEU8497-51-36 13:56:00 Test Item Value Reference Range Interpretation Comments Hct (test code = Hct) 21.8 42.0-54.0 [facility] CenterFfgqrizRDULGGCXBU7815-82-61 13:56:00 Test Item Value Reference Range Interpretation Comments MCV (test code = MCV) 85.2 80.0-94.0 [facility] [id number] 13:56:00 Test Item Value Reference Range Interpretation Comments MCH (test code = MCH) 29.6 pg 27.0-31.0 [facility] CenterTaneupyJPTBWHJWAR3975-78-64 13:56:00 Test Item Value Reference Range Interpretation Comments MCHC (test code = MCHC) 34.8 32.0-36.0 [facility] CenterLidfwcpZFMFTRMJEY0391-21-04 13:56:00 Test Item Value Reference Range Interpretation Comments RDW (test code = RDW) 13.9 11.5-14.5 [facility] CenterXncxfpxBQKAHDNBMY3608-80-49 13:56:00 Test Item Value Reference Range Interpretation Comments Platelet (test code = Platelet) 170 133-450 [facility] CenterCwsywouVBEMONVNEJ2861-07-64 13:56:00 Test Item Value Reference Range Interpretation Comments MPV (test code = MPV) 7.1 7.4-10.4 [facility] CenterPxaqfelUPYBEIJKAP3503-22-46 13:56:00 Test Item Value Reference Range Interpretation Comments Segs (test code = Segs) 67.4 45.0-75.0 [facility] CenterYfwporoBAZQKCXLZZ6972-67-59 13:56:00 Test Item Value Reference Range Interpretation Comments Lymphocytes (test code = Lymphocytes) 15.2 20.0-40.0 [place] [address]-08-13 13:56:00 Test Item Value Reference Range Interpretation Comments Monocytes (test code = Monocytes) 8.6 2.0-12.0 [place] 922080-08-13 13:56:00 Test Item Value Reference Range Interpretation Comments Eosinophils (test code = 7.8 See_Comment [A utomated message] The Eosinophils) system which ge nerated this result tra nsmitted reference range : <=4.0. The reference r yared was not used to int erpret this result as normal/abnormal . [place] [address]-08-13 13:56:00 Test Item Value Reference Range Interpretation Comments Basophils (test code = 1.0 See_Comment [Aut omated message] The Basophils) system which ge nerated this result tra nsmitted reference range : <=1.0. The reference r yared was not used to int erpret this result as normal/abnormal . [place] [address]-08-13 13:56:00 Test Item Value Reference Range Interpretation Comments Neutrophils # (test code = Neutrophils 3.6 1.5-8.1 #) [place] [address]-08-13 13:56:00 Test Item Value Reference Range Interpretation Comments Lymphocytes # (test code = Lymphocytes 0.8 1.0-5.5 #) [place] [address]-08-13 13:56:00 Test Item Value Reference Range Interpretation Comments Monocytes # (test code 0.5 See_Comment [Aut omated message] The = Monocytes #) system which generated this result tra nsmitted reference range : <=0.8. The reference r yared was not used to int erpret this result as normal/abnormal . [place] [address]-08-13 13:56:00 Test Item Value Reference Range Interpretation Comments Eosinophils # (test code 0.4 See_Comment [A utomated message] The = Eosinophils #) system whic h generated this result tra nsmitted reference range : <=0.5. The reference r yared was not used to int erpret this result as normal/abnormal . [place] [address]-08-13 13:56:00 Test Item Value Reference Range Interpretation Comments Basophils # (test code 0.1 See_Comment [Aut omated message] The = Basophils #) system which generated this result tra nsmitted reference range : <=0.2. The reference r yared was not used to int erpret this result as normal/abnormal . [facility]2020-08-13 13:56:00 Test Item Value Reference Range Interpretation Comments Glucose Lvl (test code = Glucose Lvl) 97 70-99 [place] [address]-08-13 13:56:00 Test Item Value Reference Range Interpretation Comments BUN (test code = BUN) 41 7-22 [place] 124950-08-13 13:56:00 Test Item Value Reference Range Interpretation Comments Creatinine Lvl (test code = Creatinine 10.50 0.50-1.40 Lvl) [place] 124950-08-13 13:56:00 Test Item Value Reference Range Interpretation Comments Sodium Lvl (test code = Sodium Lvl) 133 135-145 [place] [address]-08-13 13:56:00 Test Item Value Reference Range Interpretation Comments Potassium Lvl (test code = Potassium 3.2 3.5-5.1 Lvl) [facility]2020-08-13 13:56:00 Test Item Value Reference Range Interpretation Comments Chloride Lvl (test code = Chloride Lvl) 94 95-109 [place] 124950-08-13 13:56:00 Test Item Value Reference Range Interpretation Comments CO2 (test code = CO2) 28 24-32 [place] 124950-08-13 13:56:00 Test Item Value Reference Range Interpretation Comments Calcium Lvl (test code = Calcium Lvl) 9.5 8.5-10.5 [facility]2020-08-13 13:56:00 Test Item Value Reference Range Interpretation Comments AGAP (test code = AGAP) 14.2 10.0-20.0 [place] 124950-08-13 13:56:00 Test Item Value Reference Range Interpretation Comments eGFR (test code = eGFR) 5 [place] 124950-08-13 13:56:00 Test Item Value Reference Range Interpretation Comments Total Protein (test code = Total 5.4 6.4-8.4 Protein) [place] 124950-08-13 13:56:00 Test Item Value Reference Range Interpretation Comments Albumin Lvl (test code = Albumin Lvl) 2.3 3.5-5.0 [id number] 13:56:00 Test Item Value Reference Range Interpretation Comments ALT (test code = ALT) 16 See_Comment [Auto mated message] The system which ge nerated this result transmit emerson reference range : <=65. The reference range was not used to interpr et this result as erinn l/abnormal. [facility] [employer] [id number] 13:56:00 Test Item Value Reference Range Interpretation Comments AST (test code = AST) 26 See_Comment [Auto mated message] The system which ge nerated this result transmit emerson reference range : <=37. The reference range was not used to interpr et this result as erinn l/abnormal. [employer]2020-08-13 13:56:00 Test Item Value Reference Range Interpretation Comments Alk Phos (test code = Alk Phos) 82 39-136 [facility] [employer] [id number] 13:56:00 Test Item Value Reference Range Interpretation Comments Bili Total (test code = Bili Total) 0.4 0.2-1.3 [facility] [employer] [id number] 13:56:00 Test Item Value Reference Range Interpretation Comments Bili Direct (test code 0.1 See_Comment [Aut omated message] The = Bili Direct) system which generated this result tra nsmitted reference range : <=0.3. The reference r yared was not used to int erpret this result as erinn l/abnormal. [facility] [employer]2020-08-13 13:56:00 Test Item Value Reference Range Interpretation Comments Bili Indirect (test 0.3 See_Comment [Automa emerson message] The code = Bili Indirect) system which generated this result tra nsmitted reference range : <=1.0. The reference r yared was not used to int erpret this result as normal/abnormal . [facility] [employer] [id number] 13:56:00 Test Item Value Reference Range Interpretation Comments Globulin (test code = Globulin) 3.1 2.7-4.2 [facility] [employer] [id number] 13:56:00 Test Item Value Reference Range Interpretation Comments A/G Ratio (test code = A/G Ratio) 0.7 1 0.7-1.6 [facility] [employer] [id number] 13:56:00 Test Item Value Reference Range Interpretation Comments Lipase Lvl (test code = Lipase Lvl) 41 73-393 [facility]wqwgqzGVMFRLUIYU1752-61-98 13:56:00 Test Item Value Reference Range Interpretation Comments WBC (test code = WBC) 5.3 3.7-10.4 [facility] CenterYneqoyeUNVZPPJDCZ4509-25-59 13:56:00 Test Item Value Reference Range Interpretation Comments RBC (test code = RBC) 2.56 4.70-6.10 [facility] CenterFdazyspACWNWGCASU0986-35-92 13:56:00 Test Item Value Reference Range Interpretation Comments Hgb (test code = Hgb) 7.6 14.0-18.0 [facility] CenterLmbzeyqFSJFTTPIAY9425-92-90 13:56:00 Test Item Value Reference Range Interpretation Comments Hct (test code = Hct) 21.8 42.0-54.0 [facility] CenterQpqpnvyVRBGGJZBBY6703-29-25 13:56:00 Test Item Value Reference Range Interpretation Comments MCV (test code = MCV) 85.2 80.0-94.0 [facility] CenterWsyndztPAXOVVRKNH1857-39-75 13:56:00 Test Item Value Reference Range Interpretation Comments MCH (test code = MCH) 29.6 pg 27.0-31.0 [facility] CenterPajpjauKYNTFJBSUM0268-04-27 13:56:00 Test Item Value Reference Range Interpretation Comments MCHC (test code = MCHC) 34.8 32.0-36.0 [facility] CenterPrmojfsXFWORVSEOX2676-53-77 13:56:00 Test Item Value Reference Range Interpretation Comments RDW (test code = RDW) 13.9 11.5-14.5 [facility] CenterDjnhcqiWGRETTWKNS6332-98-44 13:56:00 Test Item Value Reference Range Interpretation Comments Platelet (test code = Platelet) 170 133-450 [facility] CenterBsfbqyxYBSHDBXJEE9778-43-20 13:56:00 Test Item Value Reference Range Interpretation Comments MPV (test code = MPV) 7.1 7.4-10.4 [facility] CenterVzvuopoJZEZJZNIAF4140-26-12 13:56:00 Test Item Value Reference Range Interpretation Comments Segs (test code = Segs) 67.4 45.0-75.0 [facility] CenterEtihlemOLDVDPAKTI2047-02-05 13:56:00 Test Item Value Reference Range Interpretation Comments Lymphocytes (test code = Lymphocytes) 15.2 20.0-40.0 [place] 922080-08-13 13:56:00 Test Item Value Reference Range Interpretation Comments Monocytes (test code = Monocytes) 8.6 2.0-12.0 [facility] CenterNtplphgYJSMZEZNDQ1177-21-62 13:56:00 Test Item Value Reference Range Interpretation Comments Eosinophils (test code = 7.8 See_Comment [A utomated message] The Eosinophils) system which ge nerated this result tra nsmitted reference range : <=4.0. The reference r yared was not used to int erpret this result as normal/abnormal . [facility] CenterBruxrqhPEYTWVZWOJ9068-57-77 13:56:00 Test Item Value Reference Range Interpretation Comments Basophils (test code = 1.0 See_Comment [Aut omated message] The Basophils) system which ge nerated this result tra nsmitted reference range : <=1.0. The reference r yared was not used to int erpret this result as normal/abnormal . [facility] CenterNakpyrmRAPGTADYCG2568-50-68 13:56:00 Test Item Value Reference Range Interpretation Comments Neutrophils # (test code = Neutrophils 3.6 1.5-8.1 #) [facility] CenterHceusrjRUGKWISDLH8431-91-10 13:56:00 Test Item Value Reference Range Interpretation Comments Lymphocytes # (test code = Lymphocytes 0.8 1.0-5.5 #) [facility] CenterUetgkfrKRXHLGRIRB8401-09-52 13:56:00 Test Item Value Reference Range Interpretation Comments Monocytes # (test code 0.5 See_Comment [Aut omated message] The = Monocytes #) system which generated this result tra nsmitted reference range : <=0.8. The reference r yared was not used to int erpret this result as normal/abnormal . [facility] CenterQsjrbvaFWCWXVDSMU2894-32-60 13:56:00 Test Item Value Reference Range Interpretation Comments Eosinophils # (test code 0.4 See_Comment [A utomated message] The = Eosinophils #) system whic h generated this result tra nsmitted reference range : <=0.5. The reference r yared was not used to int erpret this result as normal/abnormal . [facility] CenterTxyvhwoQTPVQSBFSK8724-53-95 13:56:00 Test Item Value Reference Range Interpretation Comments Basophils # (test code 0.1 See_Comment [Aut omated message] The = Basophils #) system which generated this result tra nsmitted reference range : <=0.2. The reference r yared was not used to int erpret this result as normal/abnormal . [facility] [employer] [id number] 13:56:00 Test Item Value Reference Range Interpretation Comments eGFR (test code = eGFR) 5 [facility] [employer] [id number] 13:56:00 Test Item Value Reference Range Interpretation Comments Total Protein (test code = Total 5.4 6.4-8.4 Protein) [facility] [id number] 13:56:00 Test Item Value Reference Range Interpretation Comments Albumin Lvl (test code = Albumin Lvl) 2.3 3.5-5.0 [facility] [employer] [id number] 13:56:00 Test Item Value Reference Range Interpretation Comments ALT (test code = ALT) 16 See_Comment [Auto mated message] The system which ge nerated this result transmit emerson reference range : <=65. The reference range was not used to interpr et this result as erinn l/abnormal. [facility] [employer] [id number] 13:56:00 Test Item Value Reference Range Interpretation Comments AST (test code = AST) 26 See_Comment [Auto mated message] The system which ge nerated this result transmit emerson reference range : <=37. The reference range was not used to interpr et this result as erinn l/abnormal. [facility] [employer] [id number] 13:56:00 Test Item Value Reference Range Interpretation Comments Alk Phos (test code = Alk Phos) 82 39-136 [facility] [employer] [id number] 13:56:00 Test Item Value Reference Range Interpretation Comments Bili Total (test code = Bili Total) 0.4 0.2-1.3 [facility] [employer] [id number] 13:56:00 Test Item Value Reference Range Interpretation Comments Bili Direct (test code 0.1 See_Comment [Aut omated message] The = Bili Direct) system which generated this result tra nsmitted reference range : <=0.3. The reference r yared was not used to int erpret this result as erinn l/abnormal. [facility] [employer] [id number] 13:56:00 Test Item Value Reference Range Interpretation Comments Bili Indirect (test 0.3 See_Comment [Automa emerson message] The code = Bili Indirect) system which generated this result tra nsmitted reference range : <=1.0. The reference r yared was not used to int erpret this result as normal/abnormal . [facility] [id number] 13:56:00 Test Item Value Reference Range Interpretation Comments Globulin (test code = Globulin) 3.1 2.7-4.2 [facility] [id number] 13:56:00 Test Item Value Reference Range Interpretation Comments A/G Ratio (test code = A/G Ratio) 0.7 1 0.7-1.6 [facility] [id number] 13:56:00 Test Item Value Reference Range Interpretation Comments Lipase Lvl (test code = Lipase Lvl) 41 73-393 [facility] CenterUlbvjckXVVDCTDQFN3937-39-60 13:56:00 Test Item Value Reference Range Interpretation Comments WBC (test code = WBC) 5.3 3.7-10.4 [facility] CenterYrylkxbHZOWTPULCJ4063-61-79 13:56:00 Test Item Value Reference Range Interpretation Comments RBC (test code = RBC) 2.56 4.70-6.10 [facility] HospitalXqqdgihZHUYJONDYA1394-38-47 13:56:00 Test Item Value Reference Range Interpretation Comments Hgb (test code = Hgb) 7.6 14.0-18.0 [place] [address]-08-13 13:56:00 Test Item Value Reference Range Interpretation Comments Hct (test code = Hct) 21.8 42.0-54.0 [facility] HospitalAqlhpnqYNYNKKOASV2559-59-15 13:56:00 Test Item Value Reference Range Interpretation Comments MCV (test code = MCV) 85.2 80.0-94.0 [place] [address]-08-13 13:56:00 Test Item Value Reference Range Interpretation Comments MCH (test code = MCH) 29.6 pg 27.0-31.0 [facility] CenterPpiwahbCDGPRSJIYT4487-16-70 13:56:00 Test Item Value Reference Range Interpretation Comments MCHC (test code = MCHC) 34.8 32.0-36.0 [place] [address]-08-13 13:56:00 Test Item Value Reference Range Interpretation Comments RDW (test code = RDW) 13.9 11.5-14.5 [facility] CenterFkkepbwSWUKYYMQNH8911-09-82 13:56:00 Test Item Value Reference Range Interpretation Comments Platelet (test code = Platelet) 170 133-450 [place] 922080-08-13 13:56:00 Test Item Value Reference Range Interpretation Comments MPV (test code = MPV) 7.1 7.4-10.4 [place] 922080-08-13 13:56:00 Test Item Value Reference Range Interpretation Comments Segs (test code = Segs) 67.4 45.0-75.0 [place] 922080-08-13 13:56:00 Test Item Value Reference Range Interpretation Comments Lymphocytes (test code = Lymphocytes) 15.2 20.0-40.0 [place] 922080-08-13 13:56:00 Test Item Value Reference Range Interpretation Comments Monocytes (test code = Monocytes) 8.6 2.0-12.0 [facility] CenterBtunganZRSNDTUFGO6922-21-20 13:56:00 Test Item Value Reference Range Interpretation Comments Eosinophils (test code = 7.8 See_Comment [A utomated message] The Eosinophils) system which ge nerated this result tra nsmitted reference range : <=4.0. The reference r yared was not used to int erpret this result as normal/abnormal . [facility] CenterPwrmtfdIFQHHZIUZJ6031-41-05 13:56:00 Test Item Value Reference Range Interpretation Comments Basophils (test code = 1.0 See_Comment [Aut omated message] The Basophils) system which ge nerated this result tra nsmitted reference range : <=1.0. The reference r yared was not used to int erpret this result as normal/abnormal . [facility] CenterYdehtahDZNQHDMOFT6132-46-44 13:56:00 Test Item Value Reference Range Interpretation Comments Neutrophils # (test code = Neutrophils 3.6 1.5-8.1 #) [place] 922080-08-13 13:56:00 Test Item Value Reference Range Interpretation Comments Lymphocytes # (test code = Lymphocytes 0.8 1.0-5.5 #) [facility] CenterDkangmcCWJFORSTXS9762-85-76 13:56:00 Test Item Value Reference Range Interpretation Comments Monocytes # (test code 0.5 See_Comment [Aut omated message] The = Monocytes #) system which generated this result tra nsmitted reference range : <=0.8. The reference r yared was not used to int erpret this result as normal/abnormal . [place] 922080-08-13 13:56:00 Test Item Value Reference Range Interpretation Comments Eosinophils # (test code 0.4 See_Comment [A utomated message] The = Eosinophils #) system whic h generated this result tra nsmitted reference range : <=0.5. The reference r yared was not used to int erpret this result as normal/abnormal . [place] [address]-08-13 13:56:00 Test Item Value Reference Range Interpretation Comments Basophils # (test code 0.1 See_Comment [Aut omated message] The = Basophils #) system which generated this result tra nsmitted reference range : <=0.2. The reference r yared was not used to int erpret this result as normal/abnormal . [place] 124950-08-13 13:56:00 Test Item Value Reference Range Interpretation Comments Glucose Lvl (test code = Glucose Lvl) 97 70-99 [place] [address]-08-13 13:56:00 Test Item Value Reference Range Interpretation Comments BUN (test code = BUN) 41 7-22 [place] [address]-08-13 13:56:00 Test Item Value Reference Range Interpretation Comments Creatinine Lvl (test code = Creatinine 10.50 0.50-1.40 Lvl) [place] [address]-08-13 13:56:00 Test Item Value Reference Range Interpretation Comments Sodium Lvl (test code = Sodium Lvl) 133 135-145 [place] [address]-08-13 13:56:00 Test Item Value Reference Range Interpretation Comments Potassium Lvl (test code = Potassium 3.2 3.5-5.1 Lvl) [place] [address]-08-13 13:56:00 Test Item Value Reference Range Interpretation Comments Chloride Lvl (test code = Chloride Lvl) 94 95-109 [place] [address]-08-13 13:56:00 Test Item Value Reference Range Interpretation Comments CO2 (test code = CO2) 28 24-32 [place] [address]-08-13 13:56:00 Test Item Value Reference Range Interpretation Comments Calcium Lvl (test code = Calcium Lvl) 9.5 8.5-10.5 [facility] [id number] 13:56:00 Test Item Value Reference Range Interpretation Comments AGAP (test code = AGAP) 14.2 10.0-20.0 [facility] [employer] [facility] [id number] 06:28:00 Test Item Value Reference Range Interpretation Comments ABO/Rh (test code = ABO/Rh) O POS [facility] [employer] [facility] [id number] 06:28:00 Test Item Value Reference Range Interpretation Comments Antibody Scrn (test Negative (03/23/20 1:28 code = Antibody Scrn) AM) [facility] [employer] [facility] [id number] 06:28:00 Test Item Value Reference Range Interpretation Comments ABO/Rh (test code = ABO/Rh) O POS [facility] [employer] [facility] [id number] 06:28:00 Test Item Value Reference Range Interpretation Comments Antibody Scrn (test Negative (03/23/20 1:28 code = Antibody Scrn) AM) [facility] [employer] [facility] [id number] 06:28:00 Test Item Value Reference Range Interpretation Comments ABO/Rh (test code = ABO/Rh) O POS [facility] [employer] [facility] [id number] 06:28:00 Test Item Value Reference Range Interpretation Comments Antibody Scrn (test Negative (03/23/20 1:28 code = Antibody Scrn) AM) [facility] [employer] [facility] [id number] 06:28:00 Test Item Value Reference Range Interpretation Comments ABO/Rh (test code = ABO/Rh) O POS [facility] [employer] [id number] 06:28:00 Test Item Value Reference Range Interpretation Comments Antibody Scrn (test Negative (03/23/20 1:28 code = Antibody Scrn) AM) [facility] [employer] [id number] 06:23:00 Test Item Value Reference Range Interpretation Comments RBC product (test code Product available = RBC product) 2(03/23/20 1:23 AM) [facility] [employer] [id number] 06:23:00 Test Item Value Reference Range Interpretation Comments RBC product (test code Product available = RBC product) 2(03/23/20 1:23 AM) [facility] [employer] [id number] 06:23:00 Test Item Value Reference Range Interpretation Comments RBC product (test code Product available = RBC product) 2(03/23/20 1:23 AM) [facility] [employer] [id number] 06:23:00 Test Item Value Reference Range Interpretation Comments RBC product (test code Product available = RBC product) 2(03/23/20 1:23 AM) [employer]2020-06-15 06:08:00 Test Item Value Reference Range Interpretation Comments RBC BF (test code = RBC BF) 285277 [facility] [employer]2020-06-15 06:08:00 Test Item Value Reference Range Interpretation Comments Nucleated Cells BF (test code = 1316 Nucleated Cells BF) [facility] [employer]2020-06-15 06:08:00 Test Item Value Reference Range Interpretation Comments Neutrophils BF (test code = Neutrophils 37 BF) [facility] [employer]2020-06-15 06:08:00 Test Item Value Reference Range Interpretation Comments Lymph BF (test code = Lymph BF) 4 [facility] [employer]2020-06-15 06:08:00 Test Item Value Reference Range Interpretation Comments Macrophage BF (test code = Macrophage 54 BF) [facility] [employer]2020-06-15 06:08:00 Test Item Value Reference Range Interpretation Comments Eos BF (test code = Eos BF) 3 [facility] [employer]2020-06-15 06:08:00 Test Item Value Reference Range Interpretation Comments Meso BF (test code = Meso BF) 2 [facility] [employer]CODY2020-06-15 06:08:00 Test Item Value Reference Range Interpretation Comments Clarity BF (test code = Bloody *ABN*(03/23/20 Clarity BF) 1:08 AM) [facility] [employer]2020-06-15 06:08:00 Test Item Value Reference Range Interpretation Comments Color BF (test code = Red *ABN*(03/23/20 1:08 Color BF) AM) [facility] [employer]2020-06-15 06:08:00 Test Item Value Reference Range Interpretation Comments Supernat BF (test code = Yellow *ABN*(03/23/20 Supernat BF) 1:08 AM) [employer]2020-06-15 06:08:00 Test Item Value Reference Range Interpretation Comments CellCnt BF Type (test Periton (03/23/20 1:08 code = CellCnt BF Type) AM) [facility]2020-06-15 06:08:00 Test Item Value Reference Range Interpretation Comments Glucose Lvl (test code = Glucose Lvl) 98 70-99 [place] 124950-06-15 06:08:00 Test Item Value Reference Range Interpretation Comments BUN (test code = BUN) 81 7-22 [place] 124950-06-15 06:08:00 Test Item Value Reference Range Interpretation Comments Creatinine Lvl (test code = Creatinine 14.40 0.50-1.40 Lvl) [facility]2020-06-15 06:08:00 Test Item Value Reference Range Interpretation Comments Sodium Lvl (test code = Sodium Lvl) 129 135-145 [facility]2020-06-15 06:08:00 Test Item Value Reference Range Interpretation Comments Potassium Lvl (test code = Potassium 4.8 3.5-5.1 Lvl) [facility]2020-06-15 06:08:00 Test Item Value Reference Range Interpretation Comments Chloride Lvl (test code = Chloride Lvl) 90 95-109 [facility]2020-06-15 06:08:00 Test Item Value Reference Range Interpretation Comments CO2 (test code = CO2) 27 24-32 [facility]2020-06-15 06:08:00 Test Item Value Reference Range Interpretation Comments Calcium Lvl (test code = Calcium Lvl) 8.7 8.5-10.5 [facility]2020-06-15 06:08:00 Test Item Value Reference Range Interpretation Comments Total Protein (test code = Total 5.7 6.4-8.4 Protein) [place] 124950-06-15 06:08:00 Test Item Value Reference Range Interpretation Comments Albumin Lvl (test code = Albumin Lvl) 2.5 3.5-5.0 [place] 124950-06-15 06:08:00 Test Item Value Reference Range Interpretation Comments ALT (test code = ALT) 32 See_Comment [Auto mated message] The system which ge nerated this result transmit emerson reference range : <=65. The reference range was not used to interpr et this result as erinn l/abnormal. [place] [address]-06-15 06:08:00 Test Item Value Reference Range Interpretation Comments AST (test code = AST) 36 See_Comment [Auto mated message] The system which ge nerated this result transmit emerson reference range : <=37. The reference range was not used to interpr et this result as erinn l/abnormal. [facility]2020-06-15 06:08:00 Test Item Value Reference Range Interpretation Comments Alk Phos (test code = Alk Phos) 110 39-136 [facility] [facility] Test Item Value Reference Range Interpretation Comments Bili Total (test code = Bili Total) 0.5 0.2-1.3 [facility]2020-06-15 06:08:00 Test Item Value Reference Range Interpretation Comments AGAP (test code = AGAP) 16.8 10.0-20.0 [facility]2020-06-15 06:08:00 Test Item Value Reference Range Interpretation Comments B/C Ratio (test code = B/C Ratio) 6 1 6-25 [place] 124950-06-15 06:08:00 Test Item Value Reference Range Interpretation Comments Globulin (test code = Globulin) 3.2 2.7-4.2 [facility]2020-06-15 06:08:00 Test Item Value Reference Range Interpretation Comments A/G Ratio (test code = A/G Ratio) 0.8 1 0.7-1.6 [place] 124950-06-15 06:08:00 Test Item Value Reference Range Interpretation Comments eGFR (test code = eGFR) 3 [place] 124950-06-15 06:08:00 Test Item Value Reference Range Interpretation Comments Lactic Acid Lvl (test code = Lactic 0.6 0.5-2.2 Acid Lvl) [place] 922080-06-15 06:08:00 Test Item Value Reference Range Interpretation Comments WBC (test code = WBC) 11.5 3.7-10.4 [place] 922080-06-15 06:08:00 Test Item Value Reference Range Interpretation Comments RBC (test code = RBC) 2.12 4.70-6.10 [place] 922080-06-15 06:08:00 Test Item Value Reference Range Interpretation Comments Hgb (test code = Hgb) 6.1 14.0-18.0 [facility]xIEVRRRNAXA7180-46-71 06:08:00 Test Item Value Reference Range Interpretation Comments Hct (test code = Hct) 18.4 42.0-54.0 [place] 922080-06-15 06:08:00 Test Item Value Reference Range Interpretation Comments MCV (test code = MCV) 86.5 80.0-94.0 [facility] CenterTkxjdkaXCRZOHXLKR2556-46-24 06:08:00 Test Item Value Reference Range Interpretation Comments MCH (test code = MCH) 28.6 pg 27.0-31.0 [facility] CenterJxcdisyMFCRPVHQUB2156-58-97 06:08:00 Test Item Value Reference Range Interpretation Comments MCHC (test code = MCHC) 33.1 32.0-36.0 [facility] CenterQqzzahfBVGNTCLDQL4753-26-11 06:08:00 Test Item Value Reference Range Interpretation Comments RDW (test code = RDW) 15.9 11.5-14.5 [facility] CenterYjbybwuOCZYQNVKKW5449-01-28 06:08:00 Test Item Value Reference Range Interpretation Comments Platelet (test code = Platelet) 316 133-450 [facility] CenterDzupjlmYILALFCLCB4495-84-94 06:08:00 Test Item Value Reference Range Interpretation Comments MPV (test code = MPV) 6.8 7.4-10.4 [facility] CenterYchtnlqZULZCUYHVH5016-23-95 06:08:00 Test Item Value Reference Range Interpretation Comments PT (test code = PT) 13.9 s 12.0-14.7 [facility] CenterUnnltcgMEXDWBEKPI6014-78-53 06:08:00 Test Item Value Reference Range Interpretation Comments INR (test code = INR) 1.07 1 0.85-1.17 [facility] CenterOtrqcrqGQNZKONMAV1048-21-24 06:08:00 Test Item Value Reference Range Interpretation Comments RBC Morph (test code = Normal (03/23/20 1:08 RBC Morph) AM) [facility] CenterGcyzmpuOPEABINMIU9668-34-79 06:08:00 Test Item Value Reference Range Interpretation Comments Plt Morph (test code = Normal (03/23/20 1:08 Plt Morph) AM) [facility] CenterCeooflzIRUSMFMJFE4933-18-22 06:08:00 Test Item Value Reference Range Interpretation Comments Segs (test code = Segs) 80.9 45.0-75.0 [place] 922080-06-15 06:08:00 Test Item Value Reference Range Interpretation Comments Lymphocytes (test code = Lymphocytes) 9.1 20.0-40.0 [place] 922080-06-15 06:08:00 Test Item Value Reference Range Interpretation Comments Monocytes (test code = Monocytes) 7.3 2.0-12.0 [place] 922080-06-15 06:08:00 Test Item Value Reference Range Interpretation Comments Eosinophils (test code = 2.0 See_Comment [A utomated message] The Eosinophils) system which ge nerated this result tra nsmitted reference range : <=4.0. The reference r yared was not used to int erpret this result as normal/abnormal . [place] [address]-06-15 06:08:00 Test Item Value Reference Range Interpretation Comments Basophils (test code = 0.7 See_Comment [Aut omated message] The Basophils) system which ge nerated this result tra nsmitted reference range : <=1.0. The reference r yared was not used to int erpret this result as normal/abnormal . [facility] CenterFzpfqzyCCOYOWWKEO8786-19-55 06:08:00 Test Item Value Reference Range Interpretation Comments Neutrophils # (test code = Neutrophils 9.3 1.5-8.1 #) [place] 922080-06-15 06:08:00 Test Item Value Reference Range Interpretation Comments Lymphocytes # (test code = Lymphocytes 1.0 1.0-5.5 #) [place] 922080-06-15 06:08:00 Test Item Value Reference Range Interpretation Comments Monocytes # (test code 0.8 See_Comment [Aut omated message] The = Monocytes #) system which generated this result tra nsmitted reference range : <=0.8. The reference r yared was not used to int erpret this result as normal/abnormal . [place] 922080-06-15 06:08:00 Test Item Value Reference Range Interpretation Comments Eosinophils # (test code 0.2 See_Comment [A utomated message] The = Eosinophils #) system whic h generated this result tra nsmitted reference range : <=0.5. The reference r yared was not used to int erpret this result as normal/abnormal . [facility] CenterSlcxpjcLQFVBTGUVL3860-01-91 06:08:00 Test Item Value Reference Range Interpretation Comments Basophils # (test code 0.1 See_Comment [Aut omated message] The = Basophils #) system which generated this result tra nsmitted reference range : <=0.2. The reference r yared was not used to int erpret this result as normal/abnormal . [facility] CenterBiilodyUUHJFYZMYX7782-04-30 06:08:00 Test Item Value Reference Range Interpretation Comments Anisocyte (test code = 2+ *ABN*(03/23/20 Anisocyte) 1:08 AM) [facility] CenterCdxepmwCXWQVIOIWO6125-43-87 06:08:00 Test Item Value Reference Range Interpretation Comments Macrocyte (test code = 1+ *ABN*(03/23/20 Macrocyte) 1:08 AM) [facility] CenterGndtvlzZMHHFFHSZW3411-59-90 06:08:00 Test Item Value Reference Range Interpretation Comments Microcyte (test code = 1+ *ABN*(03/23/20 Microcyte) 1:08 AM) [facility] CenterEvakfltDEDIOSSXZT1077-72-56 06:08:00 Test Item Value Reference Range Interpretation Comments Spherocyte (test code = Rare *ABN*(03/23/20 Spherocyte) 1:08 AM) [facility]2020-06-15 06:08:00 Test Item Value Reference Range Interpretation Comments RBC BF (test code = RBC BF) [id number] [facility]2020-06-15 06:08:00 Test Item Value Reference Range Interpretation Comments Nucleated Cells BF (test code = 1316 Nucleated Cells BF) [facility]2020-06-15 06:08:00 Test Item Value Reference Range Interpretation Comments Neutrophils BF (test code = Neutrophils 37 BF) [facility]2020-06-15 06:08:00 Test Item Value Reference Range Interpretation Comments Lymph BF (test code = Lymph BF) 4 [facility]2020-06-15 06:08:00 Test Item Value Reference Range Interpretation Comments Macrophage BF (test code = Macrophage 54 BF) [facility]2020-06-15 06:08:00 Test Item Value Reference Range Interpretation Comments Eos BF (test code = Eos BF) 3 [facility]2020-06-15 06:08:00 Test Item Value Reference Range Interpretation Comments Meso BF (test code = Meso BF) 2 [facility] [id number] 06:08:00 Test Item Value Reference Range Interpretation Comments Clarity BF (test code = Bloody *ABN*(03/23/20 Clarity BF) 1:08 AM) [facility]2020-06-15 06:08:00 Test Item Value Reference Range Interpretation Comments Color BF (test code = Red *ABN*(03/23/20 1:08 Color BF) AM) [facility]2020-06-15 06:08:00 Test Item Value Reference Range Interpretation Comments Supernat BF (test code = Yellow *ABN*(03/23/20 Supernat BF) 1:08 AM) [facility] [id number] 06:08:00 Test Item Value Reference Range Interpretation Comments CellCnt BF Type (test Periton (03/23/20 1:08 code = CellCnt BF Type) AM) [facility] [employer] [id number] 06:08:00 Test Item Value Reference Range Interpretation Comments Glucose Lvl (test code = Glucose Lvl) 98 70-99 [facility] [employer] [id number] 06:08:00 Test Item Value Reference Range Interpretation Comments BUN (test code = BUN) 81 7-22 [facility] [employer] [id number] 06:08:00 Test Item Value Reference Range Interpretation Comments Creatinine Lvl (test code = Creatinine 14.40 0.50-1.40 Lvl) [facility] [id number] 06:08:00 Test Item Value Reference Range Interpretation Comments Sodium Lvl (test code = Sodium Lvl) 129 135-145 [facility] [employer] [id number] 06:08:00 Test Item Value Reference Range Interpretation Comments Potassium Lvl (test code = Potassium 4.8 3.5-5.1 Lvl) [facility] [employer] [id number] 06:08:00 Test Item Value Reference Range Interpretation Comments Chloride Lvl (test code = Chloride Lvl) 90 95-109 [facility] [id number] 06:08:00 Test Item Value Reference Range Interpretation Comments CO2 (test code = CO2) 27 24-32 [facility] [id number] 06:08:00 Test Item Value Reference Range Interpretation Comments Calcium Lvl (test code = Calcium Lvl) 8.7 8.5-10.5 [facility] [id number] 06:08:00 Test Item Value Reference Range Interpretation Comments Total Protein (test code = Total 5.7 6.4-8.4 Protein) [facility]CourseloadZ[facility] [id number] 06:08:00 Test Item Value Reference Range Interpretation Comments Albumin Lvl (test code = Albumin Lvl) 2.5 3.5-5.0 [facility] [id number] 06:08:00 Test Item Value Reference Range Interpretation Comments ALT (test code = ALT) 32 See_Comment [Auto mated message] The system which ge nerated this result transmit emerson reference range : <=65. The reference range was not used to interpr et this result as erinn l/abnormal. [facility] [id number] 06:08:00 Test Item Value Reference Range Interpretation Comments AST (test code = AST) 36 See_Comment [Auto mated message] The system which ge nerated this result transmit emerson reference range : <=37. The reference range was not used to interpr et this result as erinn l/abnormal. [facility] [id number] 06:08:00 Test Item Value Reference Range Interpretation Comments Alk Phos (test code = Alk Phos) 110 39-136 [facility] [id number] 06:08:00 Test Item Value Reference Range Interpretation Comments Bili Total (test code = Bili Total) 0.5 0.2-1.3 [facility] [id number] 06:08:00 Test Item Value Reference Range Interpretation Comments AGAP (test code = AGAP) 16.8 10.0-20.0 [facility] [employer] [id number] 06:08:00 Test Item Value Reference Range Interpretation Comments B/C Ratio (test code = B/C Ratio) 6 1 6-25 [facility] [id number] 06:08:00 Test Item Value Reference Range Interpretation Comments Globulin (test code = Globulin) 3.2 2.7-4.2 [facility] [employer] [id number] 06:08:00 Test Item Value Reference Range Interpretation Comments A/G Ratio (test code = A/G Ratio) 0.8 1 0.7-1.6 [facility]2020-06-15 06:08:00 Test Item Value Reference Range Interpretation Comments eGFR (test code = eGFR) 3 [facility] [id number] 06:08:00 Test Item Value Reference Range Interpretation Comments Lactic Acid Lvl (test code = Lactic 0.6 0.5-2.2 Acid Lvl) [facility] CenterAlotcpnASRKFIKMVU8193-97-40 06:08:00 Test Item Value Reference Range Interpretation Comments WBC (test code = WBC) 11.5 3.7-10.4 [place] 922080-06-15 06:08:00 Test Item Value Reference Range Interpretation Comments RBC (test code = RBC) 2.12 4.70-6.10 [place] [address]-06-15 06:08:00 Test Item Value Reference Range Interpretation Comments Hgb (test code = Hgb) 6.1 14.0-18.0 [place] [address]-06-15 06:08:00 Test Item Value Reference Range Interpretation Comments Hct (test code = Hct) 18.4 42.0-54.0 [place] [address]-06-15 06:08:00 Test Item Value Reference Range Interpretation Comments MCV (test code = MCV) 86.5 80.0-94.0 [place] [address]-06-15 06:08:00 Test Item Value Reference Range Interpretation Comments MCH (test code = MCH) 28.6 pg 27.0-31.0 [facility] CenterTpasrjnNVHJHHZLAO6172-52-88 06:08:00 Test Item Value Reference Range Interpretation Comments MCHC (test code = MCHC) 33.1 32.0-36.0 [place] 922080-06-15 06:08:00 Test Item Value Reference Range Interpretation Comments RDW (test code = RDW) 15.9 11.5-14.5 [place] [address]-06-15 06:08:00 Test Item Value Reference Range Interpretation Comments Platelet (test code = Platelet) 316 133-450 [facility] CenterXubzhbbVFIQHXFZRI6172-23-42 06:08:00 Test Item Value Reference Range Interpretation Comments MPV (test code = MPV) 6.8 7.4-10.4 [facility] CenterIkjfxrjADOUPXWIZV6256-28-15 06:08:00 Test Item Value Reference Range Interpretation Comments PT (test code = PT) 13.9 s 12.0-14.7 [facility] CenterFnivbsfLUPAFNTOMF3386-93-05 06:08:00 Test Item Value Reference Range Interpretation Comments INR (test code = INR) 1.07 1 0.85-1.17 [facility] CenterEfajtonHCMUATXAWO2005-79-98 06:08:00 Test Item Value Reference Range Interpretation Comments RBC Morph (test code = Normal (03/23/20 1:08 RBC Morph) AM) [facility] CenterAmrysbtDFSJMRVVLR5642-65-88 06:08:00 Test Item Value Reference Range Interpretation Comments Plt Morph (test code = Normal (03/23/20 1:08 Plt Morph) AM) [facility] CenterItjiwowMNUHWFZAFD9887-13-23 06:08:00 Test Item Value Reference Range Interpretation Comments Segs (test code = Segs) 80.9 45.0-75.0 [facility] CenterKxhntqzCTTNFCKXOK5234-78-64 06:08:00 Test Item Value Reference Range Interpretation Comments Lymphocytes (test code = Lymphocytes) 9.1 20.0-40.0 [facility] CenterIwydpmvJBKXFPYQXZ0396-31-47 06:08:00 Test Item Value Reference Range Interpretation Comments Monocytes (test code = Monocytes) 7.3 2.0-12.0 [facility] CenterCnecqqhCJODVTISTT7898-86-26 06:08:00 Test Item Value Reference Range Interpretation Comments Eosinophils (test code = 2.0 See_Comment [A utomated message] The Eosinophils) system which ge nerated this result tra nsmitted reference range : <=4.0. The reference r yared was not used to int erpret this result as normal/abnormal . [facility] CenterKgxmyauWIQEEVOVIR4694-92-78 06:08:00 Test Item Value Reference Range Interpretation Comments Basophils (test code = 0.7 See_Comment [Aut omated message] The Basophils) system which ge nerated this result tra nsmitted reference range : <=1.0. The reference r yared was not used to int erpret this result as normal/abnormal . [place] 922080-06-15 06:08:00 Test Item Value Reference Range Interpretation Comments Neutrophils # (test code = Neutrophils 9.3 1.5-8.1 #) [facility] CenterXvouplzXEWLAZQEPW7764-28-81 06:08:00 Test Item Value Reference Range Interpretation Comments Lymphocytes # (test code = Lymphocytes 1.0 1.0-5.5 #) [facility] CenterAozrlbpNVYMOXDSZS8293-88-13 06:08:00 Test Item Value Reference Range Interpretation Comments Monocytes # (test code 0.8 See_Comment [Aut omated message] The = Monocytes #) system which generated this result tra nsmitted reference range : <=0.8. The reference r yared was not used to int erpret this result as normal/abnormal . [facility] CenterAkdfivnZMYIXMZRXH5476-68-12 06:08:00 Test Item Value Reference Range Interpretation Comments Eosinophils # (test code 0.2 See_Comment [A utomated message] The = Eosinophils #) system whic h generated this result tra nsmitted reference range : <=0.5. The reference r yared was not used to int erpret this result as normal/abnormal . [facility] CenterHzvfpmqHCEUTPIKYL3885-73-82 06:08:00 Test Item Value Reference Range Interpretation Comments Basophils # (test code 0.1 See_Comment [Aut omated message] The = Basophils #) system which generated this result tra nsmitted reference range : <=0.2. The reference r yared was not used to int erpret this result as normal/abnormal . [facility] CenterSjezmgeWJIQGYRSUF9280-08-68 06:08:00 Test Item Value Reference Range Interpretation Comments Anisocyte (test code = 2+ *ABN*(03/23/20 Anisocyte) 1:08 AM) [facility] CenterMglmsmgPKHLTJDWRG5755-01-44 06:08:00 Test Item Value Reference Range Interpretation Comments Macrocyte (test code = 1+ *ABN*(03/23/20 Macrocyte) 1:08 AM) [facility] CenterSovozxdAFBOVKRYQF0379-36-60 06:08:00 Test Item Value Reference Range Interpretation Comments Microcyte (test code = 1+ *ABN*(03/23/20 Microcyte) 1:08 AM) [facility] CenterZndvgmsEPLWUOTIHK4602-76-66 06:08:00 Test Item Value Reference Range Interpretation Comments Spherocyte (test code = Rare *ABN*(03/23/20 Spherocyte) 1:08 AM) [facility]2020-06-15 06:08:00 Test Item Value Reference Range Interpretation Comments RBC BF (test code = RBC BF) 199622 [place] 840640-06-15 06:08:00 Test Item Value Reference Range Interpretation Comments Nucleated Cells BF (test code = 1316 Nucleated Cells BF) [facility]2020-06-15 06:08:00 Test Item Value Reference Range Interpretation Comments Neutrophils BF (test code = Neutrophils 37 BF) [facility]2020-06-15 06:08:00 Test Item Value Reference Range Interpretation Comments Lymph BF (test code = Lymph BF) 4 [facility]2020-06-15 06:08:00 Test Item Value Reference Range Interpretation Comments Macrophage BF (test code = Macrophage 54 BF) [facility]2020-06-15 06:08:00 Test Item Value Reference Range Interpretation Comments Eos BF (test code = Eos BF) 3 [facility]2020-06-15 06:08:00 Test Item Value Reference Range Interpretation Comments Meso BF (test code = Meso BF) 2 [facility]2020-06-15 06:08:00 Test Item Value Reference Range Interpretation Comments Clarity BF (test code = Bloody *ABN*(03/23/20 Clarity BF) 1:08 AM) [facility]2020-06-15 06:08:00 Test Item Value Reference Range Interpretation Comments Color BF (test code = Red *ABN*(03/23/20 1:08 Color BF) AM) [facility] [id number] 06:08:00 Test Item Value Reference Range Interpretation Comments Supernat BF (test code = Yellow *ABN*(03/23/20 Supernat BF) 1:08 AM) [facility] [id number] 06:08:00 Test Item Value Reference Range Interpretation Comments CellCnt BF Type (test Periton (03/23/20 1:08 code = CellCnt BF Type) AM) [facility] [id number] 06:08:00 Test Item Value Reference Range Interpretation Comments Glucose Lvl (test code = Glucose Lvl) 98 70-99 [facility] [id number] 06:08:00 Test Item Value Reference Range Interpretation Comments BUN (test code = BUN) 81 7-22 [facility] [id number] 06:08:00 Test Item Value Reference Range Interpretation Comments Creatinine Lvl (test code = Creatinine 14.40 0.50-1.40 Lvl) [place] 124950-06-15 06:08:00 Test Item Value Reference Range Interpretation Comments Sodium Lvl (test code = Sodium Lvl) 129 135-145 [place] 124950-06-15 06:08:00 Test Item Value Reference Range Interpretation Comments Potassium Lvl (test code = Potassium 4.8 3.5-5.1 Lvl) [place] 124950-06-15 06:08:00 Test Item Value Reference Range Interpretation Comments Chloride Lvl (test code = Chloride Lvl) 90 95-109 [place] [address]-06-15 06:08:00 Test Item Value Reference Range Interpretation Comments CO2 (test code = CO2) 27 24-32 [place] [address]-06-15 06:08:00 Test Item Value Reference Range Interpretation Comments Calcium Lvl (test code = Calcium Lvl) 8.7 8.5-10.5 [place] 124950-06-15 06:08:00 Test Item Value Reference Range Interpretation Comments Total Protein (test code = Total 5.7 6.4-8.4 Protein) [place] [address]-06-15 06:08:00 Test Item Value Reference Range Interpretation Comments Albumin Lvl (test code = Albumin Lvl) 2.5 3.5-5.0 [place] 124950-06-15 06:08:00 Test Item Value Reference Range Interpretation Comments ALT (test code = ALT) 32 See_Comment [Auto mated message] The system which ge nerated this result transmit emerson reference range : <=65. The reference range was not used to interpr et this result as erinn l/abnormal. [place] 124950-06-15 06:08:00 Test Item Value Reference Range Interpretation Comments AST (test code = AST) 36 See_Comment [Auto mated message] The system which ge nerated this result transmit emerson reference range : <=37. The reference range was not used to interpr et this result as erinn l/abnormal. [place] [address]-06-15 06:08:00 Test Item Value Reference Range Interpretation Comments Alk Phos (test code = Alk Phos) 110 39-136 [facility]YourListen[facility] [id number] 06:08:00 Test Item Value Reference Range Interpretation Comments Bili Total (test code = Bili Total) 0.5 0.2-1.3 [facility]2020-06-15 06:08:00 Test Item Value Reference Range Interpretation Comments AGAP (test code = AGAP) 16.8 10.0-20.0 [place] 124950-06-15 06:08:00 Test Item Value Reference Range Interpretation Comments B/C Ratio (test code = B/C Ratio) 6 1 6-25 [place] 124950-06-15 06:08:00 Test Item Value Reference Range Interpretation Comments Globulin (test code = Globulin) 3.2 2.7-4.2 [facility]2020-06-15 06:08:00 Test Item Value Reference Range Interpretation Comments A/G Ratio (test code = A/G Ratio) 0.8 1 0.7-1.6 [facility]2020-06-15 06:08:00 Test Item Value Reference Range Interpretation Comments eGFR (test code = eGFR) 3 [facility]2020-06-15 06:08:00 Test Item Value Reference Range Interpretation Comments Lactic Acid Lvl (test code = Lactic 0.6 0.5-2.2 Acid Lvl) [facility] CenterKjwmfvpUUEOBGJENO6424-00-82 06:08:00 Test Item Value Reference Range Interpretation Comments WBC (test code = WBC) 11.5 3.7-10.4 [place] 922080-06-15 06:08:00 Test Item Value Reference Range Interpretation Comments RBC (test code = RBC) 2.12 4.70-6.10 [place] [address]-06-15 06:08:00 Test Item Value Reference Range Interpretation Comments Hgb (test code = Hgb) 6.1 14.0-18.0 [place] [address]-06-15 06:08:00 Test Item Value Reference Range Interpretation Comments Hct (test code = Hct) 18.4 42.0-54.0 [facility] CenterSmmlryyYLHLYHEHQJ6731-00-09 06:08:00 Test Item Value Reference Range Interpretation Comments MCV (test code = MCV) 86.5 80.0-94.0 [place] [address]-06-15 06:08:00 Test Item Value Reference Range Interpretation Comments MCH (test code = MCH) 28.6 pg 27.0-31.0 [facility] CenterTcqmzuzJCYGFDXYUF2905-40-07 06:08:00 Test Item Value Reference Range Interpretation Comments MCHC (test code = MCHC) 33.1 32.0-36.0 [facility] CenterAojnlkjYVEWSVBZLP9350-82-10 06:08:00 Test Item Value Reference Range Interpretation Comments RDW (test code = RDW) 15.9 11.5-14.5 [facility] CenterSnejhglMDJHOTFGEK6522-61-61 06:08:00 Test Item Value Reference Range Interpretation Comments Platelet (test code = Platelet) 316 133-450 [facility] CenterDtghzidIPLEXIJSGH4653-81-28 06:08:00 Test Item Value Reference Range Interpretation Comments MPV (test code = MPV) 6.8 7.4-10.4 [facility] CenterZklgzrnHNNQKNTGJX0615-90-53 06:08:00 Test Item Value Reference Range Interpretation Comments PT (test code = PT) 13.9 s 12.0-14.7 [facility] CenterLloecctFMLCXYTGQW8501-47-10 06:08:00 Test Item Value Reference Range Interpretation Comments INR (test code = INR) 1.07 1 0.85-1.17 [facility]HkjziuoACUNKDDTDK9897-17-94 06:08:00 Test Item Value Reference Range Interpretation Comments RBC Morph (test code = Normal (03/23/20 1:08 RBC Morph) AM) [facility] CenterNfgnpwkGYAQREKPUZ5285-62-23 06:08:00 Test Item Value Reference Range Interpretation Comments Plt Morph (test code = Normal (03/23/20 1:08 Plt Morph) AM) [facility] CenterXxeirxhTNEDDKCTLC9419-91-74 06:08:00 Test Item Value Reference Range Interpretation Comments Segs (test code = Segs) 80.9 45.0-75.0 [facility] CenterApbbtvoQGPZWTHXIQ5159-03-10 06:08:00 Test Item Value Reference Range Interpretation Comments Lymphocytes (test code = Lymphocytes) 9.1 20.0-40.0 [facility] CenterElsuqjnSLUQCMSGDQ1752-08-12 06:08:00 Test Item Value Reference Range Interpretation Comments Monocytes (test code = Monocytes) 7.3 2.0-12.0 [facility] CenterRpxhaegYLOSVNSMZK0777-78-00 06:08:00 Test Item Value Reference Range Interpretation Comments Eosinophils (test code = 2.0 See_Comment [A utomated message] The Eosinophils) system which ge nerated this result tra nsmitted reference range : <=4.0. The reference r yared was not used to int erpret this result as normal/abnormal . [facility] CenterZeynqzoTIDXKACFAW2402-79-58 06:08:00 Test Item Value Reference Range Interpretation Comments Basophils (test code = 0.7 See_Comment [Aut omated message] The Basophils) system which ge nerated this result tra nsmitted reference range : <=1.0. The reference r yared was not used to int erpret this result as normal/abnormal . [facility] CenterVovtfzzYUUSHISDJP2662-00-96 06:08:00 Test Item Value Reference Range Interpretation Comments Neutrophils # (test code = Neutrophils 9.3 1.5-8.1 #) [facility] CenterEznaeszHVMADUZLQZ8765-60-36 06:08:00 Test Item Value Reference Range Interpretation Comments Lymphocytes # (test code = Lymphocytes 1.0 1.0-5.5 #) [place] [id number] 06:08:00 Test Item Value Reference Range Interpretation Comments Monocytes # (test code 0.8 See_Comment [Aut omated message] The = Monocytes #) system which generated this result tra nsmitted reference range : <=0.8. The reference r yared was not used to int erpret this result as normal/abnormal . [facility] CenterFtvimyzXRCLKMMBMQ8268-30-86 06:08:00 Test Item Value Reference Range Interpretation Comments Eosinophils # (test code 0.2 See_Comment [A utomated message] The = Eosinophils #) system [facility] generated this result tra nsmitted reference range : <=0.5. The reference r yared was not used to int erpret this result as normal/abnormal . [facility] CenterZjuopezRJRBALPKUO8110-41-81 06:08:00 Test Item Value Reference Range Interpretation Comments Basophils # (test code 0.1 See_Comment [Aut omated message] The = Basophils #) system which generated this result tra nsmitted reference range : <=0.2. The reference r yared was not used to int erpret this result as normal/abnormal . [facility] CenterUptgnaiDOHJIYOFHP4048-38-39 06:08:00 Test Item Value Reference Range Interpretation Comments Anisocyte (test code = 2+ *ABN*(03/23/20 Anisocyte) 1:08 AM) [facility] CenterArbokgvDEWACBMCVT0302-17-38 06:08:00 Test Item Value Reference Range Interpretation Comments Macrocyte (test code = 1+ *ABN*(03/23/20 Macrocyte) 1:08 AM) [facility] CenterNbizuzeVGHEJETIHX2417-59-73 06:08:00 Test Item Value Reference Range Interpretation Comments Microcyte (test code = 1+ *ABN*(03/23/20 Microcyte) 1:08 AM) [facility] CenterCxhsmwaZDFIOMNGWF1220-39-44 06:08:00 Test Item Value Reference Range Interpretation Comments Spherocyte (test code = Rare *ABN*(03/23/20 Spherocyte) 1:08 AM) [facility]2020-06-15 06:08:00 Test Item Value Reference Range Interpretation Comments RBC BF (test code = RBC BF) 181962 [facility]2020-06-15 06:08:00 Test Item Value Reference Range Interpretation Comments Nucleated Cells BF (test code = 1316 Nucleated Cells BF) [facility]2020-06-15 06:08:00 Test Item Value Reference Range Interpretation Comments Neutrophils BF (test code = Neutrophils 37 BF) [facility]2020-06-15 06:08:00 Test Item Value Reference Range Interpretation Comments Lymph BF (test code = Lymph BF) 4 [facility]2020-06-15 06:08:00 Test Item Value Reference Range Interpretation Comments Macrophage BF (test code = Macrophage 54 BF) [facility]2020-06-15 06:08:00 Test Item Value Reference Range Interpretation Comments Eos BF (test code = Eos BF) 3 [facility]2020-06-15 06:08:00 Test Item Value Reference Range Interpretation Comments Meso BF (test code = Meso BF) 2 [facility]2020-06-15 06:08:00 Test Item Value Reference Range Interpretation Comments Clarity BF (test code = Bloody *ABN*(03/23/20 Clarity BF) 1:08 AM) [facility]2020-06-15 06:08:00 Test Item Value Reference Range Interpretation Comments Color BF (test code = Red *ABN*(03/23/20 1:08 Color BF) AM) [facility]2020-06-15 06:08:00 Test Item Value Reference Range Interpretation Comments Supernat BF (test code = Yellow *ABN*(03/23/20 Supernat BF) 1:08 AM) [facility] [id number] 06:08:00 Test Item Value Reference Range Interpretation Comments CellCnt BF Type (test Periton (03/23/20 1:08 code = CellCnt BF Type) AM) [facility] [id number] 06:08:00 Test Item Value Reference Range Interpretation Comments Glucose Lvl (test code = Glucose Lvl) 98 70-99 [facility] [id number] 06:08:00 Test Item Value Reference Range Interpretation Comments BUN (test code = BUN) 81 7-22 [facility] [id number] 06:08:00 Test Item Value Reference Range Interpretation Comments Creatinine Lvl (test code = Creatinine 14.40 0.50-1.40 Lvl) [facility] [id number] 06:08:00 Test Item Value Reference Range Interpretation Comments Sodium Lvl (test code = Sodium Lvl) 129 135-145 [facility] [employer] [id number] 06:08:00 Test Item Value Reference Range Interpretation Comments Potassium Lvl (test code = Potassium 4.8 3.5-5.1 Lvl) [facility] [id number] 06:08:00 Test Item Value Reference Range Interpretation Comments Chloride Lvl (test code = Chloride Lvl) 90 95-109 [facility] [id number] 06:08:00 Test Item Value Reference Range Interpretation Comments CO2 (test code = CO2) 27 24-32 [facility] [id number] 06:08:00 Test Item Value Reference Range Interpretation Comments Calcium Lvl (test code = Calcium Lvl) 8.7 8.5-10.5 [facility] [id number] 06:08:00 Test Item Value Reference Range Interpretation Comments Total Protein (test code = Total 5.7 6.4-8.4 Protein) [facility] [id number] 06:08:00 Test Item Value Reference Range Interpretation Comments Albumin Lvl (test code = Albumin Lvl) 2.5 3.5-5.0 [facility] [employer] [id number] 06:08:00 Test Item Value Reference Range Interpretation Comments ALT (test code = ALT) 32 See_Comment [Auto mated message] The system which ge nerated this result transmit emerson reference range : <=65. The reference range was not used to interpr et this result as erinn l/abnormal. [facility] [employer] [id number] 06:08:00 Test Item Value Reference Range Interpretation Comments AST (test code = AST) 36 See_Comment [Auto mated message] The system which ge nerated this result transmit emerson reference range : <=37. The reference range was not used to interpr et this result as erinn l/abnormal. [facility] [employer] [id number] 06:08:00 Test Item Value Reference Range Interpretation Comments Alk Phos (test code = Alk Phos) 110 39-136 [facility] [employer] [id number] 06:08:00 Test Item Value Reference Range Interpretation Comments Bili Total (test code = Bili Total) 0.5 0.2-1.3 [facility] [employer] [id number] 06:08:00 Test Item Value Reference Range Interpretation Comments AGAP (test code = AGAP) 16.8 10.0-20.0 [facility] [employer] [id number] 06:08:00 Test Item Value Reference Range Interpretation Comments B/C Ratio (test code = B/C Ratio) 6 1 6-25 [facility] [employer] [id number] 06:08:00 Test Item Value Reference Range Interpretation Comments Globulin (test code = Globulin) 3.2 2.7-4.2 [facility] [employer] [id number] 06:08:00 Test Item Value Reference Range Interpretation Comments A/G Ratio (test code = A/G Ratio) 0.8 1 0.7-1.6 [facility] [employer] [id number] 06:08:00 Test Item Value Reference Range Interpretation Comments eGFR (test code = eGFR) 3 [facility] [employer] [id number] 06:08:00 Test Item Value Reference Range Interpretation Comments Lactic Acid Lvl (test code = Lactic 0.6 0.5-2.2 Acid Lvl) [facility]SkqriinDKRCYMUGEV4803-36-39 06:08:00 Test Item Value Reference Range Interpretation Comments WBC (test code = WBC) 11.5 3.7-10.4 [facility] BduduieRTJAQGJZLP9077-39-48 06:08:00 Test Item Value Reference Range Interpretation Comments RBC (test code = RBC) 2.12 4.70-6.10 [facility] CenterXdqliqyXPDYVTRUPU0275-44-52 06:08:00 Test Item Value Reference Range Interpretation Comments Hgb (test code = Hgb) 6.1 14.0-18.0 [facility] CenterErpsamaGPYDHGTAKX4205-71-95 06:08:00 Test Item Value Reference Range Interpretation Comments Hct (test code = Hct) 18.4 42.0-54.0 [facility] CenterCyzvnivZECGLIHMVL7558-16-59 06:08:00 Test Item Value Reference Range Interpretation Comments MCV (test code = MCV) 86.5 80.0-94.0 [facility] CenterUcpjqhzJUDBMCJCWH7930-42-07 06:08:00 Test Item Value Reference Range Interpretation Comments MCH (test code = MCH) 28.6 pg 27.0-31.0 [facility] CenterWndbggpAQWJUPFYZO7890-83-89 06:08:00 Test Item Value Reference Range Interpretation Comments MCHC (test code = MCHC) 33.1 32.0-36.0 [facility] CenterPloqociUUNGWXVTGE3653-22-57 06:08:00 Test Item Value Reference Range Interpretation Comments RDW (test code = RDW) 15.9 11.5-14.5 [facility] CenterFjcogkgDRQPGYCZJP6423-82-20 06:08:00 Test Item Value Reference Range Interpretation Comments Platelet (test code = Platelet) 316 133-450 [facility] CenterMenmiimEHRMMUTNIM8502-34-66 06:08:00 Test Item Value Reference Range Interpretation Comments MPV (test code = MPV) 6.8 7.4-10.4 [facility] CenterDsftwucENWFIRBYBO5173-43-14 06:08:00 Test Item Value Reference Range Interpretation Comments PT (test code = PT) 13.9 s 12.0-14.7 [facility] CenterCqltwraKSRLPYOBGQ0040-35-31 06:08:00 Test Item Value Reference Range Interpretation Comments INR (test code = INR) 1.07 1 0.85-1.17 [facility] CenterJvvptqpJZHHKXLWXN0532-79-09 06:08:00 Test Item Value Reference Range Interpretation Comments RBC Morph (test code = Normal (03/23/20 1:08 RBC Morph) AM) [facility] CenterGplcdgwNPDKSBXWEL7816-23-29 06:08:00 Test Item Value Reference Range Interpretation Comments Plt Morph (test code = Normal (03/23/20 1:08 Plt Morph) AM) [facility] CenterXwfwykkQDLOVVBCXN2274-14-68 06:08:00 Test Item Value Reference Range Interpretation Comments Segs (test code = Segs) 80.9 45.0-75.0 [facility] CenterQdpcrsiUIRKTIFWUI9927-01-33 06:08:00 Test Item Value Reference Range Interpretation Comments Lymphocytes (test code = Lymphocytes) 9.1 20.0-40.0 [place] 922080-06-15 06:08:00 Test Item Value Reference Range Interpretation Comments Monocytes (test code = Monocytes) 7.3 2.0-12.0 [facility] CenterTyngqdhOCQGUFKMCF4950-23-26 06:08:00 Test Item Value Reference Range Interpretation Comments Eosinophils (test code = 2.0 See_Comment [A utomated message] The Eosinophils) system which ge nerated this result tra nsmitted reference range : <=4.0. The reference r yared was not used to int erpret this result as normal/abnormal . [facility] CenterAwmsqhvJVVRGMFEOJ9801-84-21 06:08:00 Test Item Value Reference Range Interpretation Comments Basophils (test code = 0.7 See_Comment [Aut omated message] The Basophils) system which ge nerated this result tra nsmitted reference range : <=1.0. The reference r yared was not used to int erpret this result as normal/abnormal . [facility] CenterMirpuxxKMGUBYATMR5324-32-68 06:08:00 Test Item Value Reference Range Interpretation Comments Neutrophils # (test code = Neutrophils 9.3 1.5-8.1 #) [facility] CenterBcjbtjaVKKTPRLPJI6397-84-25 06:08:00 Test Item Value Reference Range Interpretation Comments Lymphocytes # (test code = Lymphocytes 1.0 1.0-5.5 #) [facility] CenterEvwjvgdDAUDTUQNTQ5059-89-21 06:08:00 Test Item Value Reference Range Interpretation Comments Monocytes # (test code 0.8 See_Comment [Aut omated message] The = Monocytes #) system which generated this result tra nsmitted reference range : <=0.8. The reference r yared was not used to int erpret this result as normal/abnormal . [facility] CenterKeqwomwZFMRSZXICQ6295-35-45 06:08:00 Test Item Value Reference Range Interpretation Comments Eosinophils # (test code 0.2 See_Comment [A utomated message] The = Eosinophils #) system whic h generated this result tra nsmitted reference range : <=0.5. The reference r yared was not used to int erpret this result as normal/abnormal . [facility] CenterYiyxijrKKUHUTXEEO2796-22-32 06:08:00 Test Item Value Reference Range Interpretation Comments Basophils # (test code 0.1 See_Comment [Aut omated message] The = Basophils #) system which generated this result tra nsmitted reference range : <=0.2. The reference r yared was not used to int erpret this result as normal/abnormal . [facility] CenterQzldidwPTNBAHQZNF9492-25-61 06:08:00 Test Item Value Reference Range Interpretation Comments Anisocyte (test code = 2+ *ABN*(03/23/20 Anisocyte) 1:08 AM) [place] [address]-06-15 06:08:00 Test Item Value Reference Range Interpretation Comments Macrocyte (test code = 1+ *ABN*(03/23/20 Macrocyte) 1:08 AM) [facility] CenterFtcbfumHSTTKNTVRU2907-97-12 06:08:00 Test Item Value Reference Range Interpretation Comments Microcyte (test code = 1+ *ABN*(03/23/20 Microcyte) 1:08 AM) [facility] CenterXtujzmdVRWPQVUKYO6129-43-95 06:08:00 Test Item Value Reference Range Interpretation Comments Spherocyte (test code = Rare *ABN*(03/23/20 Spherocyte) 1:08 AM) [facility] [id number] 21:27:00 Test Item Value Reference Range Interpretation Comments Glucose Lvl (test code = Glucose Lvl) 85 70-99 [facility] [id number] 21:27:00 Test Item Value Reference Range Interpretation Comments BUN (test code = BUN) 58 7-22 [facility] [id number] 21:27:00 Test Item Value Reference Range Interpretation Comments Creatinine Lvl (test code = Creatinine 12.00 0.50-1.40 Lvl) [facility] [id number] 21:27:00 Test Item Value Reference Range Interpretation Comments Sodium Lvl (test code = Sodium Lvl) 129 135-145 [facility] [id number] 21:27:00 Test Item Value Reference Range Interpretation Comments Potassium Lvl (test code = Potassium 4.2 3.5-5.1 Lvl) [facility] HospitalCourseloadZACHARY [facility] [id number] 21:27:00 Test Item Value Reference Range Interpretation Comments Chloride Lvl (test code = Chloride Lvl) 92 95-109 [facility] [id number] 21:27:00 Test Item Value Reference Range Interpretation Comments CO2 (test code = CO2) 26 24-32 [facility] [id number] 21:27:00 Test Item Value Reference Range Interpretation Comments Calcium Lvl (test code = Calcium Lvl) 8.3 8.5-10.5 [facility] [id number] 21:27:00 Test Item Value Reference Range Interpretation Comments Total Protein (test code = Total 5.5 6.4-8.4 Protein) [facility] [id number] 21:27:00 Test Item Value Reference Range Interpretation Comments Albumin Lvl (test code = Albumin Lvl) 2.4 3.5-5.0 [facility] [id number] 21:27:00 Test Item Value Reference Range Interpretation Comments ALT (test code = ALT) 18 See_Comment [Auto mated message] The system which ge nerated this result transmit emerson reference range : <=65. The reference range was not used to interpr et this result as erinn l/abnormal. [facility] [id number] 21:27:00 Test Item Value Reference Range Interpretation Comments AST (test code = AST) 20 See_Comment [Auto mated message] The system which ge nerated this result transmit emerson reference range : <=37. The reference range was not used to interpr et this result as erinn l/abnormal. [facility] [id number] 21:27:00 Test Item Value Reference Range Interpretation Comments Alk Phos (test code = Alk Phos) 76 39-136 [facility] [id number] 21:27:00 Test Item Value Reference Range Interpretation Comments Bili Total (test code = Bili Total) 0.3 0.2-1.3 [facility] [id number] 21:27:00 Test Item Value Reference Range Interpretation Comments AGAP (test code = AGAP) 15.2 10.0-20.0 [facility] [id number] 21:27:00 Test Item Value Reference Range Interpretation Comments B/C Ratio (test code = B/C Ratio) 5 1 6-25 [facility] [id number] 21:27:00 Test Item Value Reference Range Interpretation Comments Globulin (test code = Globulin) 3.1 2.7-4.2 [facility] [id number] 21:27:00 Test Item Value Reference Range Interpretation Comments A/G Ratio (test code = A/G Ratio) 0.8 1 0.7-1.6 [facility] [id number] 21:27:00 Test Item Value Reference Range Interpretation Comments eGFR (test code = eGFR) 4 [facility]ZamppzmDQWXMZLZDT8569-97-22 21:27:00 Test Item Value Reference Range Interpretation Comments WBC (test code = WBC) 8.7 3.7-10.4 [facility] CenterAabvebpBSQGSBOYYT4187-32-69 21:27:00 Test Item Value Reference Range Interpretation Comments RBC (test code = RBC) 2.94 4.70-6.10 [facility] HospitalOkewlfnVDNQPDGSEJ1021-24-56 21:27:00 Test Item Value Reference Range Interpretation Comments Hgb (test code = Hgb) 8.4 14.0-18.0 [facility] HospitalGuwbrrrIGBZZFBAQW7476-88-88 21:27:00 Test Item Value Reference Range Interpretation Comments Hct (test code = Hct) 25.0 42.0-54.0 [facility] CenterQptgwrbQOFDDUTTUH4432-25-74 21:27:00 Test Item Value Reference Range Interpretation Comments MCV (test code = MCV) 84.9 80.0-94.0 [facility] HospitalJrtmeitUYWVBKAXAE2219-04-42 21:27:00 Test Item Value Reference Range Interpretation Comments MCH (test code = MCH) 28.7 pg 27.0-31.0 [facility]OjaxxvmWGIFCQRUWY9221-89-74 21:27:00 Test Item Value Reference Range Interpretation Comments MCHC (test code = MCHC) 33.8 32.0-36.0 [facility] HospitalEnzuhzqZRLNGFOVXS1308-09-10 21:27:00 Test Item Value Reference Range Interpretation Comments RDW (test code = RDW) 14.4 11.5-14.5 [facility] [id number] 21:27:00 Test Item Value Reference Range Interpretation Comments Platelet (test code = Platelet) 150 133-450 [place] 922080-04-27 21:27:00 Test Item Value Reference Range Interpretation Comments MPV (test code = MPV) 7.6 7.4-10.4 [place] [address]-04-27 21:27:00 Test Item Value Reference Range Interpretation Comments Neutrophils # (test code = Neutrophils 7.7 1.5-8.1 #) [place] 922080-04-27 21:27:00 Test Item Value Reference Range Interpretation Comments Lymphocytes # (test code = Lymphocytes 0.4 1.0-5.5 #) [facility] CenterZalnfydAMCYKUEZVD7440-90-56 21:27:00 Test Item Value Reference Range Interpretation Comments Monocytes # (test code 0.3 See_Comment [Aut omated message] The = Monocytes #) system which generated this result tra nsmitted reference range : <=0.8. The reference r yared was not used to int erpret this result as normal/abnormal . [facility] CenterReeckziODBFIKKHYK6265-05-60 21:27:00 Test Item Value Reference Range Interpretation Comments Eosinophils # (test code 0.2 See_Comment [A utomated message] The = Eosinophils #) system whic h generated this result tra nsmitted reference range : <=0.5. The reference r yared was not used to int erpret this result as normal/abnormal . [facility] CenterHinvufhKETDYTXVWR6261-84-39 21:27:00 Test Item Value Reference Range Interpretation Comments Segs (test code = Segs) 86.0 45.0-75.0 [place] 922080-04-27 21:27:00 Test Item Value Reference Range Interpretation Comments Bands (test code = 3.0 See_Comment [Automat ed message] The Bands) system which ge nerated this result transmit emerson reference range : <=11.0. The reference r yared was not used to interpr et this result as erinn l/abnormal. [facility] CenterIomsjldCMIVMSQHVZ5434-71-48 21:27:00 Test Item Value Reference Range Interpretation Comments Lymphocytes (test code = Lymphocytes) 3.0 20.0-40.0 [place] 922080-04-27 21:27:00 Test Item Value Reference Range Interpretation Comments Monocytes (test code = Monocytes) 4.0 2.0-12.0 [place] [address]-04-27 21:27:00 Test Item Value Reference Range Interpretation Comments Eosinophils (test code = 2.0 See_Comment [A utomated message] The Eosinophils) system which ge nerated this result tra nsmitted reference range : <=4.0. The reference r yared was not used to int erpret this result as normal/abnormal . [place] 922080-04-27 21:27:00 Test Item Value Reference Range Interpretation Comments Atypical Lymphs (test code = Atypical 2.0 Lymphs) [place] [address]-04-27 21:27:00 Test Item Value Reference Range Interpretation Comments RBC Morph (test code = Normal (02/03/20 4:27 RBC Morph) PM) [place] [address]-04-27 21:27:00 Test Item Value Reference Range Interpretation Comments Plt Morph (test code = Normal (02/03/20 4:27 Plt Morph) PM) [place] [address]-04-27 21:27:00 Test Item Value Reference Range Interpretation Comments Anisocyte (test code = 1+ *ABN*(02/03/20 Anisocyte) 4:27 PM) [place] 124950-04-27 21:27:00 Test Item Value Reference Range Interpretation Comments Glucose Lvl (test code = Glucose Lvl) 85 70-99 [place] 124950-04-27 21:27:00 Test Item Value Reference Range Interpretation Comments BUN (test code = BUN) 58 7-22 [place] [address]-04-27 21:27:00 Test Item Value Reference Range Interpretation Comments Creatinine Lvl (test code = Creatinine 12.00 0.50-1.40 Lvl) [place] [address]-04-27 21:27:00 Test Item Value Reference Range Interpretation Comments Sodium Lvl (test code = Sodium Lvl) 129 135-145 [place] 124950-04-27 21:27:00 Test Item Value Reference Range Interpretation Comments Potassium Lvl (test code = Potassium 4.2 3.5-5.1 Lvl) [place] 124950-04-27 21:27:00 Test Item Value Reference Range Interpretation Comments Chloride Lvl (test code = Chloride Lvl) 92 95-109 [facility] [employer] [id number] 21:27:00 Test Item Value Reference Range Interpretation Comments CO2 (test code = CO2) 26 24-32 [facility] [employer] [id number] 21:27:00 Test Item Value Reference Range Interpretation Comments Calcium Lvl (test code = Calcium Lvl) 8.3 8.5-10.5 [facility] [employer] [id number] 21:27:00 Test Item Value Reference Range Interpretation Comments Total Protein (test code = Total 5.5 6.4-8.4 Protein) [facility] [employer] [id number] 21:27:00 Test Item Value Reference Range Interpretation Comments Albumin Lvl (test code = Albumin Lvl) 2.4 3.5-5.0 [facility] [employer] [id number] 21:27:00 Test Item Value Reference Range Interpretation Comments ALT (test code = ALT) 18 See_Comment [Auto mated message] The system which ge nerated this result transmit emerson reference range : <=65. The reference range was not used to interpr et this result as erinn l/abnormal. [facility] [employer] [id number] 21:27:00 Test Item Value Reference Range Interpretation Comments AST (test code = AST) 20 See_Comment [Auto mated message] The system which ge nerated this result transmit emerson reference range : <=37. The reference range was not used to interpr et this result as erinn l/abnormal. [facility] [employer] [id number] 21:27:00 Test Item Value Reference Range Interpretation Comments Alk Phos (test code = Alk Phos) 76 39-136 [facility] [employer] [id number] 21:27:00 Test Item Value Reference Range Interpretation Comments Bili Total (test code = Bili Total) 0.3 0.2-1.3 [facility] [employer] [id number] 21:27:00 Test Item Value Reference Range Interpretation Comments AGAP (test code = AGAP) 15.2 10.0-20.0 [facility] [employer] [id number] 21:27:00 Test Item Value Reference Range Interpretation Comments B/C Ratio (test code = B/C Ratio) 5 1 6-25 [facility] [employer] [id number] 21:27:00 Test Item Value Reference Range Interpretation Comments Globulin (test code = Globulin) 3.1 2.7-4.2 [facility] [id number] 21:27:00 Test Item Value Reference Range Interpretation Comments A/G Ratio (test code = A/G Ratio) 0.8 1 0.7-1.6 [facility] [id number] 21:27:00 Test Item Value Reference Range Interpretation Comments eGFR (test code = eGFR) 4 [facility]TrnthesUHTYHQWMXG6764-56-65 21:27:00 Test Item Value Reference Range Interpretation Comments WBC (test code = WBC) 8.7 3.7-10.4 [facility] HospitalNelgwmjSDKHBSTGWZ1722-33-90 21:27:00 Test Item Value Reference Range Interpretation Comments RBC (test code = RBC) 2.94 4.70-6.10 [facility] HospitalGcfncetJMFGASSFQA1233-56-06 21:27:00 Test Item Value Reference Range Interpretation Comments Hgb (test code = Hgb) 8.4 14.0-18.0 [facility] HospitalSzmxpgoXZKDEYWJNN2467-10-88 21:27:00 Test Item Value Reference Range Interpretation Comments Hct (test code = Hct) 25.0 42.0-54.0 [facility] HospitalDgxqzndFUZXAMBXPO0610-90-89 21:27:00 Test Item Value Reference Range Interpretation Comments MCV (test code = MCV) 84.9 80.0-94.0 [facility] HospitalSeauhrgOAUQQWROBD8385-78-45 21:27:00 Test Item Value Reference Range Interpretation Comments MCH (test code = MCH) 28.7 pg 27.0-31.0 [facility] HospitalLmstxgwKAUKDUEOAW5713-87-84 21:27:00 Test Item Value Reference Range Interpretation Comments MCHC (test code = MCHC) 33.8 32.0-36.0 [facility] HospitalVptgpvdAQAHVYFUBP2506-40-01 21:27:00 Test Item Value Reference Range Interpretation Comments RDW (test code = RDW) 14.4 11.5-14.5 [facility]HqhhsasJVODHPCMGE8123-29-96 21:27:00 Test Item Value Reference Range Interpretation Comments Platelet (test code = Platelet) 150 133-450 [facility] HospitalSazeuviMKBVFGBTNQ1787-99-08 21:27:00 Test Item Value Reference Range Interpretation Comments MPV (test code = MPV) 7.6 7.4-10.4 [facility] CenterXkvoyanOMHMIQHYOT9461-77-50 21:27:00 Test Item Value Reference Range Interpretation Comments Neutrophils # (test code = Neutrophils 7.7 1.5-8.1 #) [facility] CenterRpkkyzqTAFGTZJSYE0221-81-93 21:27:00 Test Item Value Reference Range Interpretation Comments Lymphocytes # (test code = Lymphocytes 0.4 1.0-5.5 #) [facility] CenterPmejcsxNFZNJUIAHX3823-87-64 21:27:00 Test Item Value Reference Range Interpretation Comments Monocytes # (test code 0.3 See_Comment [Aut omated message] The = Monocytes #) system which generated this result tra nsmitted reference range : <=0.8. The reference r yared was not used to int erpret this result as normal/abnormal . [facility] CenterGvsvtbpSCAXKTSCWP7477-05-80 21:27:00 Test Item Value Reference Range Interpretation Comments Eosinophils # (test code 0.2 See_Comment [A utomated message] The = Eosinophils #) system whic h generated this result tra nsmitted reference range : <=0.5. The reference r yared was not used to int erpret this result as normal/abnormal . [facility] CenterJauypzhJFZLWMCPTV4176-86-02 21:27:00 Test Item Value Reference Range Interpretation Comments Segs (test code = Segs) 86.0 45.0-75.0 [facility] CenterSgnszzwTCGZEGKLLR0540-84-75 21:27:00 Test Item Value Reference Range Interpretation Comments Bands (test code = 3.0 See_Comment [Automat ed message] The Bands) system which ge nerated this result transmit emerson reference range : <=11.0. The reference r yared was not used to interpr et this result as erinn l/abnormal. [facility] CenterDswsybaDOKQWECMNE2720-79-43 21:27:00 Test Item Value Reference Range Interpretation Comments Lymphocytes (test code = Lymphocytes) 3.0 20.0-40.0 [facility] CenterYbxgremUUQAGJELXU2624-33-02 21:27:00 Test Item Value Reference Range Interpretation Comments Monocytes (test code = Monocytes) 4.0 2.0-12.0 [facility] CenterCzjobpnKCAZBEFGNE6592-85-47 21:27:00 Test Item Value Reference Range Interpretation Comments Eosinophils (test code = 2.0 See_Comment [A utomated message] The Eosinophils) system which ge nerated this result tra nsmitted reference range : <=4.0. The reference r yared was not used to int erpret this result as normal/abnormal . [facility] CenterXrqgdojFKKGTCSJUM7623-89-72 21:27:00 Test Item Value Reference Range Interpretation Comments Atypical Lymphs (test code = Atypical 2.0 Lymphs) [place] [address]-04-27 21:27:00 Test Item Value Reference Range Interpretation Comments RBC Morph (test code = Normal (02/03/20 4:27 RBC Morph) PM) [place] [address]-04-27 21:27:00 Test Item Value Reference Range Interpretation Comments Plt Morph (test code = Normal (02/03/20 4:27 Plt Morph) PM) [place] [address]-04-27 21:27:00 Test Item Value Reference Range Interpretation Comments Anisocyte (test code = 1+ *ABN*(02/03/20 Anisocyte) 4:27 PM) [facility]2020-04-27 21:27:00 Test Item Value Reference Range Interpretation Comments Glucose Lvl (test code = Glucose Lvl) 85 70-99 [facility]2020-04-27 21:27:00 Test Item Value Reference Range Interpretation Comments BUN (test code = BUN) 58 7-22 [place] 124950-04-27 21:27:00 Test Item Value Reference Range Interpretation Comments Creatinine Lvl (test code = Creatinine 12.00 0.50-1.40 Lvl) [facility]2020-04-27 21:27:00 Test Item Value Reference Range Interpretation Comments Sodium Lvl (test code = Sodium Lvl) 129 135-145 [place] 124950-04-27 21:27:00 Test Item Value Reference Range Interpretation Comments Potassium Lvl (test code = Potassium 4.2 3.5-5.1 Lvl) [place] 124950-04-27 21:27:00 Test Item Value Reference Range Interpretation Comments Chloride Lvl (test code = Chloride Lvl) 92 95-109 [place] 124950-04-27 21:27:00 Test Item Value Reference Range Interpretation Comments CO2 (test code = CO2) 26 24-32 [place] 124950-04-27 21:27:00 Test Item Value Reference Range Interpretation Comments Calcium Lvl (test code = Calcium Lvl) 8.3 8.5-10.5 [facility] [id number] 21:27:00 Test Item Value Reference Range Interpretation Comments Total Protein (test code = Total 5.5 6.4-8.4 Protein) [facility] [id number] 21:27:00 Test Item Value Reference Range Interpretation Comments Albumin Lvl (test code = Albumin Lvl) 2.4 3.5-5.0 [facility] [employer] [id number] 21:27:00 Test Item Value Reference Range Interpretation Comments ALT (test code = ALT) 18 See_Comment [Auto mated message] The system which ge nerated this result transmit emerson reference range : <=65. The reference range was not used to interpr et this result as erinn l/abnormal. [facility] [employer] [id number] 21:27:00 Test Item Value Reference Range Interpretation Comments AST (test code = AST) 20 See_Comment [Auto mated message] The system which ge nerated this result transmit emerson reference range : <=37. The reference range was not used to interpr et this result as erinn l/abnormal. [facility] [employer] [id number] 21:27:00 Test Item Value Reference Range Interpretation Comments Alk Phos (test code = Alk Phos) 76 39-136 [facility] [employer] [id number] 21:27:00 Test Item Value Reference Range Interpretation Comments Bili Total (test code = Bili Total) 0.3 0.2-1.3 [facility] [employer] [id number] 21:27:00 Test Item Value Reference Range Interpretation Comments AGAP (test code = AGAP) 15.2 10.0-20.0 [facility] [employer] [id number] 21:27:00 Test Item Value Reference Range Interpretation Comments B/C Ratio (test code = B/C Ratio) 5 1 6-25 [facility] [id number] 21:27:00 Test Item Value Reference Range Interpretation Comments Globulin (test code = Globulin) 3.1 2.7-4.2 [facility] [employer] [id number] 21:27:00 Test Item Value Reference Range Interpretation Comments A/G Ratio (test code = A/G Ratio) 0.8 1 0.7-1.6 [facility] [id number] 21:27:00 Test Item Value Reference Range Interpretation Comments eGFR (test code = eGFR) 4 [facility]CcrknbdKFWFGKEVMQ1083-15-33 21:27:00 Test Item Value Reference Range Interpretation Comments WBC (test code = WBC) 8.7 3.7-10.4 [facility] HospitalQjrgefoUOSZUSUHEG7503-98-44 21:27:00 Test Item Value Reference Range Interpretation Comments RBC (test code = RBC) 2.94 4.70-6.10 [facility] HospitalTctspvoKLFOICYFFY3005-23-32 21:27:00 Test Item Value Reference Range Interpretation Comments Hgb (test code = Hgb) 8.4 14.0-18.0 [facility] HospitalOlvthkgCFXKQLMWDV2333-62-49 21:27:00 Test Item Value Reference Range Interpretation Comments Hct (test code = Hct) 25.0 42.0-54.0 [facility] HospitalLgbhbplBFZHVHGLBX6151-51-20 21:27:00 Test Item Value Reference Range Interpretation Comments MCV (test code = MCV) 84.9 80.0-94.0 [facility] HospitalLctergxUQIJKFLNSJ5804-43-64 21:27:00 Test Item Value Reference Range Interpretation Comments MCH (test code = MCH) 28.7 pg 27.0-31.0 [facility] HospitalTtceonuROKXPGLICD4718-56-31 21:27:00 Test Item Value Reference Range Interpretation Comments MCHC (test code = MCHC) 33.8 32.0-36.0 [facility] HospitalZtaawewTEDKUZGPYZ2441-37-73 21:27:00 Test Item Value Reference Range Interpretation Comments RDW (test code = RDW) 14.4 11.5-14.5 [facility] HospitalLxudbbcMYZTQOOCHW6434-26-06 21:27:00 Test Item Value Reference Range Interpretation Comments Platelet (test code = Platelet) 150 133-450 [facility] HospitalWslkuvfMJUQNOBTVM2376-29-13 21:27:00 Test Item Value Reference Range Interpretation Comments MPV (test code = MPV) 7.6 7.4-10.4 [facility] HospitalTogcgsiKGRLFGRPDZ2845-35-02 21:27:00 Test Item Value Reference Range Interpretation Comments Neutrophils # (test code = Neutrophils 7.7 1.5-8.1 #) [facility] CenterWnqxrfuUDNSCPYNBR9838-12-72 21:27:00 Test Item Value Reference Range Interpretation Comments Lymphocytes # (test code = Lymphocytes 0.4 1.0-5.5 #) [facility] CenterWlgjfevLPNXRYQRFR0049-94-79 21:27:00 Test Item Value Reference Range Interpretation Comments Monocytes # (test code 0.3 See_Comment [Aut omated message] The = Monocytes #) system which generated this result tra nsmitted reference range : <=0.8. The reference r yared was not used to int erpret this result as normal/abnormal . [facility] CenterTwbmatqLJPMMPNAGG5433-74-44 21:27:00 Test Item Value Reference Range Interpretation Comments Eosinophils # (test code 0.2 See_Comment [A utomated message] The = Eosinophils #) system whic h generated this result tra nsmitted reference range : <=0.5. The reference r yared was not used to int erpret this result as normal/abnormal . [facility] CenterEingtnyLOUYEORRQZ2392-50-21 21:27:00 Test Item Value Reference Range Interpretation Comments Segs (test code = Segs) 86.0 45.0-75.0 [place] [address]-04-27 21:27:00 Test Item Value Reference Range Interpretation Comments Bands (test code = 3.0 See_Comment [Automat ed message] The Bands) system which ge nerated this result transmit emerson reference range : <=11.0. The reference r yared was not used to interpr et this result as erinn l/abnormal. [facility] CenterRnptjmfBYRBDEMLRX6616-65-08 21:27:00 Test Item Value Reference Range Interpretation Comments Lymphocytes (test code = Lymphocytes) 3.0 20.0-40.0 [place] 922080-04-27 21:27:00 Test Item Value Reference Range Interpretation Comments Monocytes (test code = Monocytes) 4.0 2.0-12.0 [place] 922080-04-27 21:27:00 Test Item Value Reference Range Interpretation Comments Eosinophils (test code = 2.0 See_Comment [A utomated message] The Eosinophils) system which ge nerated this result tra nsmitted reference range : <=4.0. The reference r yared was not used to int erpret this result as normal/abnormal . [facility] CenterLlvqovlEBPKHVVORF3242-33-58 21:27:00 Test Item Value Reference Range Interpretation Comments Atypical Lymphs (test code = Atypical 2.0 Lymphs) [facility] CenterIqdlekkFRPTDRILRT3348-51-63 21:27:00 Test Item Value Reference Range Interpretation Comments RBC Morph (test code = Normal (02/03/20 4:27 RBC Morph) PM) [place] [address]-04-27 21:27:00 Test Item Value Reference Range Interpretation Comments Plt Morph (test code = Normal (02/03/20 4:27 Plt Morph) PM) [place] [address]-04-27 21:27:00 Test Item Value Reference Range Interpretation Comments Anisocyte (test code = 1+ *ABN*(02/03/20 Anisocyte) 4:27 PM) [place] 124950-04-27 21:27:00 Test Item Value Reference Range Interpretation Comments Glucose Lvl (test code = Glucose Lvl) 85 70-99 [place] 124950-04-27 21:27:00 Test Item Value Reference Range Interpretation Comments BUN (test code = BUN) 58 7-22 [place] 124950-04-27 21:27:00 Test Item Value Reference Range Interpretation Comments Creatinine Lvl (test code = Creatinine 12.00 0.50-1.40 Lvl) [facility]2020-04-27 21:27:00 Test Item Value Reference Range Interpretation Comments Sodium Lvl (test code = Sodium Lvl) 129 135-145 [place] 124950-04-27 21:27:00 Test Item Value Reference Range Interpretation Comments Potassium Lvl (test code = Potassium 4.2 3.5-5.1 Lvl) [facility]2020-04-27 21:27:00 Test Item Value Reference Range Interpretation Comments Chloride Lvl (test code = Chloride Lvl) 92 95-109 [place] 124950-04-27 21:27:00 Test Item Value Reference Range Interpretation Comments CO2 (test code = CO2) 26 24-32 [place] 124950-04-27 21:27:00 Test Item Value Reference Range Interpretation Comments Calcium Lvl (test code = Calcium Lvl) 8.3 8.5-10.5 [place] 124950-04-27 21:27:00 Test Item Value Reference Range Interpretation Comments Total Protein (test code = Total 5.5 6.4-8.4 Protein) [facility] [employer] [id number] 21:27:00 Test Item Value Reference Range Interpretation Comments Albumin Lvl (test code = Albumin Lvl) 2.4 3.5-5.0 [facility] [employer] [id number] 21:27:00 Test Item Value Reference Range Interpretation Comments ALT (test code = ALT) 18 See_Comment [Auto mated message] The system which ge nerated this result transmit emerson reference range : <=65. The reference range was not used to interpr et this result as erinn l/abnormal. [facility] [employer] [id number] 21:27:00 Test Item Value Reference Range Interpretation Comments AST (test code = AST) 20 See_Comment [Auto mated message] The system which ge nerated this result transmit emerson reference range : <=37. The reference range was not used to interpr et this result as erinn l/abnormal. [facility] [employer] [id number] 21:27:00 Test Item Value Reference Range Interpretation Comments Alk Phos (test code = Alk Phos) 76 39-136 [facility] [employer] [id number] 21:27:00 Test Item Value Reference Range Interpretation Comments Bili Total (test code = Bili Total) 0.3 0.2-1.3 [facility] [employer] [id number] 21:27:00 Test Item Value Reference Range Interpretation Comments AGAP (test code = AGAP) 15.2 10.0-20.0 [facility] [employer] [id number] 21:27:00 Test Item Value Reference Range Interpretation Comments B/C Ratio (test code = B/C Ratio) 5 1 6-25 [facility] [employer] [id number] 21:27:00 Test Item Value Reference Range Interpretation Comments Globulin (test code = Globulin) 3.1 2.7-4.2 [facility] [employer] [id number] 21:27:00 Test Item Value Reference Range Interpretation Comments A/G Ratio (test code = A/G Ratio) 0.8 1 0.7-1.6 [facility] [employer] [id number] 21:27:00 Test Item Value Reference Range Interpretation Comments eGFR (test code = eGFR) 4 [facility] CenterUkuzxyzVESVQELYPK5409-86-85 21:27:00 Test Item Value Reference Range Interpretation Comments WBC (test code = WBC) 8.7 3.7-10.4 [facility] CenterDkgddbxUUJOERZWHP3387-58-47 21:27:00 Test Item Value Reference Range Interpretation Comments RBC (test code = RBC) 2.94 4.70-6.10 [facility] CenterYevooviKGNJODNTFN6787-61-58 21:27:00 Test Item Value Reference Range Interpretation Comments Hgb (test code = Hgb) 8.4 14.0-18.0 [facility] CenterKygzxhoAQNHVNTCEV0957-77-85 21:27:00 Test Item Value Reference Range Interpretation Comments Hct (test code = Hct) 25.0 42.0-54.0 [facility] CenterGjlkwtxYPHZUAOLGR4601-01-23 21:27:00 Test Item Value Reference Range Interpretation Comments MCV (test code = MCV) 84.9 80.0-94.0 [facility] CenterXcgotlsFCSDZUVTVL2754-17-84 21:27:00 Test Item Value Reference Range Interpretation Comments MCH (test code = MCH) 28.7 pg 27.0-31.0 [facility] CenterUbrsgodHKNTSAIWYA2863-11-33 21:27:00 Test Item Value Reference Range Interpretation Comments MCHC (test code = MCHC) 33.8 32.0-36.0 [facility] CenterHrryotoTZVHMQYTAF7800-11-17 21:27:00 Test Item Value Reference Range Interpretation Comments RDW (test code = RDW) 14.4 11.5-14.5 [facility] CenterCnvlxzhNJXKYZPQVG9317-91-45 21:27:00 Test Item Value Reference Range Interpretation Comments Platelet (test code = Platelet) 150 133-450 [facility] CenterGlutcjyRCMLPOPWRN7591-07-52 21:27:00 Test Item Value Reference Range Interpretation Comments MPV (test code = MPV) 7.6 7.4-10.4 [facility] CenterJvyhpngJLYTYYPOXI0505-74-63 21:27:00 Test Item Value Reference Range Interpretation Comments Neutrophils # (test code = Neutrophils 7.7 1.5-8.1 #) [facility] CenterZmdedewNDNDLXXMIF7648-81-62 21:27:00 Test Item Value Reference Range Interpretation Comments Lymphocytes # (test code = Lymphocytes 0.4 1.0-5.5 #) [facility] CenterBsmfjvnXWQMUXKRNB0984-09-64 21:27:00 Test Item Value Reference Range Interpretation Comments Monocytes # (test code 0.3 See_Comment [Aut omated message] The = Monocytes #) system which generated this result tra nsmitted reference range : <=0.8. The reference r yared was not used to int erpret this result as normal/abnormal . [facility] CenterQbnibvfQEVPOELRJC1037-28-75 21:27:00 Test Item Value Reference Range Interpretation Comments Eosinophils # (test code 0.2 See_Comment [A utomated message] The = Eosinophils #) system whic h generated this result tra nsmitted reference range : <=0.5. The reference r yared was not used to int erpret this result as normal/abnormal . [facility] CenterXbopbulLESJHZDOHY8220-29-50 21:27:00 Test Item Value Reference Range Interpretation Comments Segs (test code = Segs) 86.0 45.0-75.0 [facility] CenterZzwebcdUIMPFSZNAS6785-99-77 21:27:00 Test Item Value Reference Range Interpretation Comments Bands (test code = 3.0 See_Comment [Automat ed message] The Bands) system which ge nerated this result transmit emerson reference range : <=11.0. The reference r yared was not used to interpr et this result as erinn l/abnormal. [facility] CenterSdinpwxHNQIVHPSWP6091-62-63 21:27:00 Test Item Value Reference Range Interpretation Comments Lymphocytes (test code = Lymphocytes) 3.0 20.0-40.0 [facility] CenterJxwluxsULTDSWNYWT6832-57-49 21:27:00 Test Item Value Reference Range Interpretation Comments Monocytes (test code = Monocytes) 4.0 2.0-12.0 [facility] CenterBnhodlnGGVJPOJAWD3981-04-82 21:27:00 Test Item Value Reference Range Interpretation Comments Eosinophils (test code = 2.0 See_Comment [A utomated message] The Eosinophils) system which ge nerated this result tra nsmitted reference range : <=4.0. The reference r yared was not used to int erpret this result as normal/abnormal . [facility] CenterGmndjnjIBUKDJCSEN7174-79-58 21:27:00 Test Item Value Reference Range Interpretation Comments Atypical Lymphs (test code = Atypical 2.0 Lymphs) [facility] CenterCregnjqDHYXBSTFWK1476-26-73 21:27:00 Test Item Value Reference Range Interpretation Comments RBC Morph (test code = Normal (02/03/20 4:27 RBC Morph) PM) [facility] CenterSpyxjegXFLAZBKVWG6106-04-48 21:27:00 Test Item Value Reference Range Interpretation Comments Plt Morph (test code = Normal (02/03/20 4:27 Plt Morph) PM) [facility] CenterNszvmkwDQZHWPUFUB9973-53-86 21:27:00 Test Item Value Reference Range Interpretation Comments Anisocyte (test code = 1+ *ABN*(02/03/20 Anisocyte) 4:27 PM) [facility]jxy[facility]pcMNGPMVHLFY1453-96-19 21:14:00 Test Item Value Reference Range Interpretation Comments Coronavirus (COVID-19) Not Detected (02/03/20 JUVENCIO (test code = 4:14 PM) Coronavirus (COVID-19) JUVENCIO) [facility] HospitalSqhbuklLPIQMKPVCH7550-91-44 21:14:00 Test Item Value Reference Range Interpretation Comments Coronavirus (COVID-19) Not Detected (02/03/20 JUVENCIO (test code = 4:14 PM) Coronavirus (COVID-19) JUVENCIO) [facility] HospitalOshbuzvKSFAAYMECA8958-99-02 21:14:00 Test Item Value Reference Range Interpretation Comments Coronavirus (COVID-19) Not Detected (02/03/20 JUVENCIO (test code = 4:14 PM) Coronavirus (COVID-19) JUVENCIO) [facility] HospitalPynmyktSVKLTTDZYL7373-29-96 21:14:00 Test Item Value Reference Range Interpretation Comments Coronavirus (COVID-19) Not Detected (02/03/20 JUVENCIO (test code = 4:14 PM) Coronavirus (COVID-19) JUVENCIO) [facility]2020-01-27 18:30:00 Test Item Value Reference Range Interpretation Comments Color BF (test code = Colorless (11/04/19 12:30 Color BF) PM) [facility]2020-01-27 18:30:00 Test Item Value Reference Range Interpretation Comments Clarity BF (test code = Clear (11/04/19 12:30 Clarity BF) PM) [facility]2020-01-27 18:30:00 Test Item Value Reference Range Interpretation Comments Nucleated Cells BF (test code = 11 Nucleated Cells BF) [facility]2020-01-27 18:30:00 Test Item Value Reference Range Interpretation Comments RBC BF (test code = RBC BF) 11 [facility]2020-01-27 18:30:00 Test Item Value Reference Range Interpretation Comments Neutrophils BF (test code = Neutrophils 11 BF) [facility]2020-01-27 18:30:00 Test Item Value Reference Range Interpretation Comments Lymph BF (test code = Lymph BF) 56 [facility]2020-01-27 18:30:00 Test Item Value Reference Range Interpretation Comments Macrophage BF (test code = Macrophage 33 BF) [facility]2020-01-27 18:30:00 Test Item Value Reference Range Interpretation Comments CellCnt BF Type (test Periton (11/04/19 12:30 code = CellCnt BF Type) PM) [facility] [id number] 18:30:00 Test Item Value Reference Range Interpretation Comments Gram Stain Report Rare WBC's No Organisms (test code = Gram Seen Stain Report) [facility]irate/Body Fluid/[id number] 18:30:00 Test Item Value Reference Range Interpretation Comments Culture: 48 Hour Report - No Aspirate/Body Growth, Holding Fluid/Tissue (test code = Culture: Aspirate/Body Fluid/Tissue) [facility]2020-01-27 18:30:00 Test Item Value Reference Range Interpretation Comments Color BF (test code = Colorless (11/04/19 12:30 Color BF) PM) [facility]2020-01-27 18:30:00 Test Item Value Reference Range Interpretation Comments Clarity BF (test code = Clear (11/04/19 12:30 Clarity BF) PM) [facility]2020-01-27 18:30:00 Test Item Value Reference Range Interpretation Comments Nucleated Cells BF (test code = 11 Nucleated Cells BF) [facility]2020-01-27 18:30:00 Test Item Value Reference Range Interpretation Comments RBC BF (test code = RBC BF) 11 [facility]2020-01-27 18:30:00 Test Item Value Reference Range Interpretation Comments Neutrophils BF (test code = Neutrophils 11 BF) [facility]2020-01-27 18:30:00 Test Item Value Reference Range Interpretation Comments Lymph BF (test code = Lymph BF) 56 [facility]2020-01-27 18:30:00 Test Item Value Reference Range Interpretation Comments Macrophage BF (test code = Macrophage 33 BF) [facility]2020-01-27 18:30:00 Test Item Value Reference Range Interpretation Comments CellCnt BF Type (test Periton (11/04/19 12:30 code = CellCnt BF Type) PM) [facility] [id number] 18:30:00 Test Item Value Reference Range Interpretation Comments Gram Stain Report Rare WBC's No Organisms (test code = Gram Seen Stain Report) [facility] Aspirate/Body Fluid/[id number] 18:30:00 Test Item Value Reference Range Interpretation Comments Culture: 48 Hour Report - No Aspirate/Body Growth, Holding Fluid/Tissue (test code = Culture: Aspirate/Body Fluid/Tissue) [facility]2020-01-27 18:30:00 Test Item Value Reference Range Interpretation Comments Color BF (test code = Colorless (11/04/19 12:30 Color BF) PM) [facility]2020-01-27 18:30:00 Test Item Value Reference Range Interpretation Comments Clarity BF (test code = Clear (11/04/19 12:30 Clarity BF) PM) [facility]2020-01-27 18:30:00 Test Item Value Reference Range Interpretation Comments Nucleated Cells BF (test code = 11 Nucleated Cells BF) [facility]2020-01-27 18:30:00 Test Item Value Reference Range Interpretation Comments RBC BF (test code = RBC BF) 11 [facility]2020-01-27 18:30:00 Test Item Value Reference Range Interpretation Comments Neutrophils BF (test code = Neutrophils 11 BF) [facility]2020-01-27 18:30:00 Test Item Value Reference Range Interpretation Comments Lymph BF (test code = Lymph BF) 56 [facility]2020-01-27 18:30:00 Test Item Value Reference Range Interpretation Comments Macrophage BF (test code = Macrophage 33 BF) [facility]2020-01-27 18:30:00 Test Item Value Reference Range Interpretation Comments CellCnt BF Type (test Periton (11/04/19 12:30 code = CellCnt BF Type) PM) [facility] Stain [id number] 18:30:00 Test Item Value Reference Range Interpretation Comments Gram Stain Report Rare WBC's No Organisms (test code = Gram Seen Stain Report) [facility] Aspirate/Body Fluid/[id number] 18:30:00 Test Item Value Reference Range Interpretation Comments Culture: 48 Hour Report - No Aspirate/Body Growth, Holding Fluid/Tissue (test code = Culture: Aspirate/Body Fluid/Tissue) [facility]2020-01-27 18:30:00 Test Item Value Reference Range Interpretation Comments Color BF (test code = Colorless (11/04/19 12:30 Color BF) PM) [facility]2020-01-27 18:30:00 Test Item Value Reference Range Interpretation Comments Clarity BF (test code = Clear (11/04/19 12:30 Clarity BF) PM) [facility]2020-01-27 18:30:00 Test Item Value Reference Range Interpretation Comments Nucleated Cells BF (test code = 11 Nucleated Cells BF) [facility]2020-01-27 18:30:00 Test Item Value Reference Range Interpretation Comments RBC BF (test code = RBC BF) 11 [facility]2020-01-27 18:30:00 Test Item Value Reference Range Interpretation Comments Neutrophils BF (test code = Neutrophils 11 BF) [facility]2020-01-27 18:30:00 Test Item Value Reference Range Interpretation Comments Lymph BF (test code = Lymph BF) 56 [facility]2020-01-27 18:30:00 Test Item Value Reference Range Interpretation Comments Macrophage BF (test code = Macrophage 33 BF) [facility]2020-01-27 18:30:00 Test Item Value Reference Range Interpretation Comments CellCnt BF Type (test Periton (11/04/19 12:30 code = CellCnt BF Type) PM) [facility] [id number] 18:30:00 Test Item Value Reference Range Interpretation Comments Gram Stain Report Rare WBC's No Organisms (test code = Gram Seen Stain Report) [facility] Aspirate/Body Fluid/[id number] 18:30:00 Test Item Value Reference Range Interpretation Comments Culture: 48 Hour Report - No Aspirate/Body Growth, Holding Fluid/Tissue (test code = Culture: Aspirate/Body Fluid/Tissue) [facility]CHE[facility] [id number] 18:00:00 Test Item Value Reference Range Interpretation Comments Glucose Lvl (test code = Glucose Lvl) 125 70-99 [facility]2020-01-27 18:00:00 Test Item Value Reference Range Interpretation Comments BUN (test code = BUN) 40 7-22 [facility]2020-01-27 18:00:00 Test Item Value Reference Range Interpretation Comments Creatinine Lvl (test code = Creatinine 10.60 0.50-1.40 Lvl) [facility]2020-01-27 18:00:00 Test Item Value Reference Range Interpretation Comments Sodium Lvl (test code = Sodium Lvl) 141 135-145 [facility]2020-01-27 18:00:00 Test Item Value Reference Range Interpretation Comments Potassium Lvl (test code = Potassium 3.8 3.5-5.1 Lvl) [facility]2020-01-27 18:00:00 Test Item Value Reference Range Interpretation Comments Chloride Lvl (test code = Chloride Lvl) 101 95-109 [facility]2020-01-27 18:00:00 Test Item Value Reference Range Interpretation Comments CO2 (test code = CO2) 32 24-32 [facility]2020-01-27 18:00:00 Test Item Value Reference Range Interpretation Comments Calcium Lvl (test code = Calcium Lvl) 9.3 8.5-10.5 [facility]2020-01-27 18:00:00 Test Item Value Reference Range Interpretation Comments AGAP (test code = AGAP) 11.8 10.0-20.0 [facility]2020-01-27 18:00:00 Test Item Value Reference Range Interpretation Comments eGFR (test code = eGFR) 5 [facility]2020-01-27 18:00:00 Test Item Value Reference Range Interpretation Comments Glucose Lvl (test code = Glucose Lvl) 125 70-99 [facility]2020-01-27 18:00:00 Test Item Value Reference Range Interpretation Comments BUN (test code = BUN) 40 7-22 [facility]2020-01-27 18:00:00 Test Item Value Reference Range Interpretation Comments Creatinine Lvl (test code = Creatinine 10.60 0.50-1.40 Lvl) [facility]2020-01-27 18:00:00 Test Item Value Reference Range Interpretation Comments Sodium Lvl (test code = Sodium Lvl) 141 135-145 [facility]2020-01-27 18:00:00 Test Item Value Reference Range Interpretation Comments Potassium Lvl (test code = Potassium 3.8 3.5-5.1 Lvl) [facility]2020-01-27 18:00:00 Test Item Value Reference Range Interpretation Comments Chloride Lvl (test code = Chloride Lvl) 101 95-109 [facility]2020-01-27 18:00:00 Test Item Value Reference Range Interpretation Comments CO2 (test code = CO2) 32 24-32 [place] 124950-01-27 18:00:00 Test Item Value Reference Range Interpretation Comments Calcium Lvl (test code = Calcium Lvl) 9.3 8.5-10.5 [facility]2020-01-27 18:00:00 Test Item Value Reference Range Interpretation Comments AGAP (test code = AGAP) 11.8 10.0-20.0 [facility]2020-01-27 18:00:00 Test Item Value Reference Range Interpretation Comments eGFR (test code = eGFR) 5 [facility]2020-01-27 18:00:00 Test Item Value Reference Range Interpretation Comments Glucose Lvl (test code = Glucose Lvl) 125 70-99 [facility]2020-01-27 18:00:00 Test Item Value Reference Range Interpretation Comments BUN (test code = BUN) 40 7-22 [facility]2020-01-27 18:00:00 Test Item Value Reference Range Interpretation Comments Creatinine Lvl (test code = Creatinine 10.60 0.50-1.40 Lvl) [facility]2020-01-27 18:00:00 Test Item Value Reference Range Interpretation Comments Sodium Lvl (test code = Sodium Lvl) 141 135-145 [facility]2020-01-27 18:00:00 Test Item Value Reference Range Interpretation Comments Potassium Lvl (test code = Potassium 3.8 3.5-5.1 Lvl) [facility]2020-01-27 18:00:00 Test Item Value Reference Range Interpretation Comments Chloride Lvl (test code = Chloride Lvl) 101 95-109 [facility]2020-01-27 18:00:00 Test Item Value Reference Range Interpretation Comments CO2 (test code = CO2) 32 24-32 [facility]2020-01-27 18:00:00 Test Item Value Reference Range Interpretation Comments Calcium Lvl (test code = Calcium Lvl) 9.3 8.5-10.5 [facility]2020-01-27 18:00:00 Test Item Value Reference Range Interpretation Comments AGAP (test code = AGAP) 11.8 10.0-20.0 [facility]2020-01-27 18:00:00 Test Item Value Reference Range Interpretation Comments eGFR (test code = eGFR) 5 [facility]2020-01-27 18:00:00 Test Item Value Reference Range Interpretation Comments Glucose Lvl (test code = Glucose Lvl) 125 70-99 [facility]2020-01-27 18:00:00 Test Item Value Reference Range Interpretation Comments BUN (test code = BUN) 40 7-22 [facility]2020-01-27 18:00:00 Test Item Value Reference Range Interpretation Comments Creatinine Lvl (test code = Creatinine 10.60 0.50-1.40 Lvl) [facility]2020-01-27 18:00:00 Test Item Value Reference Range Interpretation Comments Sodium Lvl (test code = Sodium Lvl) 141 135-145 [facility]2020-01-27 18:00:00 Test Item Value Reference Range Interpretation Comments Potassium Lvl (test code = Potassium 3.8 3.5-5.1 Lvl) [facility]2020-01-27 18:00:00 Test Item Value Reference Range Interpretation Comments Chloride Lvl (test code = Chloride Lvl) 101 95-109 [facility]2020-01-27 18:00:00 Test Item Value Reference Range Interpretation Comments CO2 (test code = CO2) 32 24-32 [facility]2020-01-27 18:00:00 Test Item Value Reference Range Interpretation Comments Calcium Lvl (test code = Calcium Lvl) 9.3 8.5-10.5 [facility]2020-01-27 18:00:00 Test Item Value Reference Range Interpretation Comments AGAP (test code = AGAP) 11.8 10.0-20.0 [facility]2020-01-27 18:00:00 Test Item Value Reference Range Interpretation Comments eGFR (test code = eGFR) 5 [place] [id number] 18:08:00 Test Item Value Reference Range Interpretation Comments Vanco Lvl (test code = Vanco Lvl) 10.2 [place] [id number] 18:08:00 Test Item Value Reference Range Interpretation Comments Vanco Lvl (test code = Vanco Lvl) 10.2 [place] [id number] 18:08:00 Test Item Value Reference Range Interpretation Comments Vanco Lvl (test code = Vanco Lvl) 10.2 [place] [id number] 18:08:00 Test Item Value Reference Range Interpretation Comments Vanco Lvl (test code = Vanco Lvl) 10.2 [facility] [id number] 13:45:00 Test Item Value Reference Range Interpretation Comments Glucose Lvl (test code = Glucose Lvl) 163 70-99 [facility] [id number] 13:45:00 Test Item Value Reference Range Interpretation Comments BUN (test code = BUN) 35 7-22 [facility]2020-01-26 13:45:00 Test Item Value Reference Range Interpretation Comments Creatinine Lvl (test code = Creatinine 9.71 0.50-1.40 Lvl) [facility]2020-01-26 13:45:00 Test Item Value Reference Range Interpretation Comments Sodium Lvl (test code = Sodium Lvl) 139 135-145 [facility]2020-01-26 13:45:00 Test Item Value Reference Range Interpretation Comments Potassium Lvl (test code = Potassium 3.4 3.5-5.1 Lvl) [facility]2020-01-26 13:45:00 Test Item Value Reference Range Interpretation Comments Chloride Lvl (test code = Chloride Lvl) 102 95-109 [place] 124950-01-26 13:45:00 Test Item Value Reference Range Interpretation Comments CO2 (test code = CO2) 29 24-32 [place] 124950-01-26 13:45:00 Test Item Value Reference Range Interpretation Comments Calcium Lvl (test code = Calcium Lvl) 9.0 8.5-10.5 [facility]2020-01-26 13:45:00 Test Item Value Reference Range Interpretation Comments AGAP (test code = AGAP) 11.4 10.0-20.0 [facility]2020-01-26 13:45:00 Test Item Value Reference Range Interpretation Comments eGFR (test code = eGFR) 5 [facility]KhsuoipSPUOFPVCFT7218-70-19 13:45:00 Test Item Value Reference Range Interpretation Comments WBC (test code = WBC) 4.3 3.7-10.4 [facility] CenterCudihqkULDXDJOJKA0418-07-00 13:45:00 Test Item Value Reference Range Interpretation Comments RBC (test code = RBC) 3.00 4.70-6.10 [place] 922080-01-26 13:45:00 Test Item Value Reference Range Interpretation Comments Hgb (test code = Hgb) 8.4 14.0-18.0 [facility] [id number] 13:45:00 Test Item Value Reference Range Interpretation Comments Hct (test code = Hct) 25.3 42.0-54.0 [place] 922080-01-26 13:45:00 Test Item Value Reference Range Interpretation Comments MCV (test code = MCV) 84.3 80.0-94.0 [facility] [id number] 13:45:00 Test Item Value Reference Range Interpretation Comments MCH (test code = MCH) 28.2 pg 27.0-31.0 [facility] [id number] 13:45:00 Test Item Value Reference Range Interpretation Comments MCHC (test code = MCHC) 33.4 32.0-36.0 [facility] CenterUlvbpyiYRPFKTIPSF8454-69-89 13:45:00 Test Item Value Reference Range Interpretation Comments RDW (test code = RDW) 14.5 11.5-14.5 [place] 922080-01-26 13:45:00 Test Item Value Reference Range Interpretation Comments Platelet (test code = Platelet) 217 133-450 [facility] [id number] 13:45:00 Test Item Value Reference Range Interpretation Comments MPV (test code = MPV) 6.5 7.4-10.4 [facility] CenterXrxwkpcLMQXGJCHCU8608-28-59 13:45:00 Test Item Value Reference Range Interpretation Comments Segs (test code = Segs) 66.4 45.0-75.0 [place] 922080-01-26 13:45:00 Test Item Value Reference Range Interpretation Comments Lymphocytes (test code = Lymphocytes) 19.6 20.0-40.0 [place] 922080-01-26 13:45:00 Test Item Value Reference Range Interpretation Comments Monocytes (test code = Monocytes) 9.3 2.0-12.0 [place] 922080-01-26 13:45:00 Test Item Value Reference Range Interpretation Comments Eosinophils (test code = 3.7 See_Comment [A utomated message] The Eosinophils) system which ge nerated this result tra nsmitted reference range : <=4.0. The reference r yared was not used to int erpret this result as normal/abnormal . [place] [address]-01-26 13:45:00 Test Item Value Reference Range Interpretation Comments Basophils (test code = 1.0 See_Comment [Aut omated message] The Basophils) system which ge nerated this result tra nsmitted reference range : <=1.0. The reference r yared was not used to int erpret this result as normal/abnormal . [place] 922080-01-26 13:45:00 Test Item Value Reference Range Interpretation Comments Neutrophils # (test code = Neutrophils 2.8 1.5-8.1 #) [place] 922080-01-26 13:45:00 Test Item Value Reference Range Interpretation Comments Lymphocytes # (test code = Lymphocytes 0.8 1.0-5.5 #) [place] 922080-01-26 13:45:00 Test Item Value Reference Range Interpretation Comments Monocytes # (test code 0.4 See_Comment [Aut omated message] The = Monocytes #) system which generated this result tra nsmitted reference range : <=0.8. The reference r yared was not used to int erpret this result as normal/abnormal . [place] 922080-01-26 13:45:00 Test Item Value Reference Range Interpretation Comments Eosinophils # (test code 0.2 See_Comment [A utomated message] The = Eosinophils #) system whic h generated this result tra nsmitted reference range : <=0.5. The reference r yared was not used to int erpret this result as normal/abnormal . [place] 124950-01-26 13:45:00 Test Item Value Reference Range Interpretation Comments Glucose Lvl (test code = Glucose Lvl) 163 70-99 [place] 124950-01-26 13:45:00 Test Item Value Reference Range Interpretation Comments BUN (test code = BUN) 35 7-22 [place] 124950-01-26 13:45:00 Test Item Value Reference Range Interpretation Comments Creatinine Lvl (test code = Creatinine 9.71 0.50-1.40 Lvl) [place] 124950-01-26 13:45:00 Test Item Value Reference Range Interpretation Comments Sodium Lvl (test code = Sodium Lvl) 139 135-145 [place] 124950-01-26 13:45:00 Test Item Value Reference Range Interpretation Comments Potassium Lvl (test code = Potassium 3.4 3.5-5.1 Lvl) [place] 124950-01-26 13:45:00 Test Item Value Reference Range Interpretation Comments Chloride Lvl (test code = Chloride Lvl) 102 95-109 [place] 124950-01-26 13:45:00 Test Item Value Reference Range Interpretation Comments CO2 (test code = CO2) 29 24-32 [place] 124950-01-26 13:45:00 Test Item Value Reference Range Interpretation Comments Calcium Lvl (test code = Calcium Lvl) 9.0 8.5-10.5 [place] 124950-01-26 13:45:00 Test Item Value Reference Range Interpretation Comments AGAP (test code = AGAP) 11.4 10.0-20.0 [place] 124950-01-26 13:45:00 Test Item Value Reference Range Interpretation Comments eGFR (test code = eGFR) 5 [place] 922080-01-26 13:45:00 Test Item Value Reference Range Interpretation Comments WBC (test code = WBC) 4.3 3.7-10.4 [place] [address]-01-26 13:45:00 Test Item Value Reference Range Interpretation Comments RBC (test code = RBC) 3.00 4.70-6.10 [place] 922080-01-26 13:45:00 Test Item Value Reference Range Interpretation Comments Hgb (test code = Hgb) 8.4 14.0-18.0 [place] 922080-01-26 13:45:00 Test Item Value Reference Range Interpretation Comments Hct (test code = Hct) 25.3 42.0-54.0 [place] 922080-01-26 13:45:00 Test Item Value Reference Range Interpretation Comments MCV (test code = MCV) 84.3 80.0-94.0 [place] [address]-01-26 13:45:00 Test Item Value Reference Range Interpretation Comments MCH (test code = MCH) 28.2 pg 27.0-31.0 [place] 922080-01-26 13:45:00 Test Item Value Reference Range Interpretation Comments MCHC (test code = MCHC) 33.4 32.0-36.0 [place] 922080-01-26 13:45:00 Test Item Value Reference Range Interpretation Comments RDW (test code = RDW) 14.5 11.5-14.5 [place] 922080-01-26 13:45:00 Test Item Value Reference Range Interpretation Comments Platelet (test code = Platelet) 217 133-450 [facility] CenterJdcuoylYBVJRLPFJK1366-64-68 13:45:00 Test Item Value Reference Range Interpretation Comments MPV (test code = MPV) 6.5 7.4-10.4 [place] [address]-01-26 13:45:00 Test Item Value Reference Range Interpretation Comments Segs (test code = Segs) 66.4 45.0-75.0 [place] [address]-01-26 13:45:00 Test Item Value Reference Range Interpretation Comments Lymphocytes (test code = Lymphocytes) 19.6 20.0-40.0 [place] [address]-01-26 13:45:00 Test Item Value Reference Range Interpretation Comments Monocytes (test code = Monocytes) 9.3 2.0-12.0 [place] [address]-01-26 13:45:00 Test Item Value Reference Range Interpretation Comments Eosinophils (test code = 3.7 See_Comment [A utomated message] The Eosinophils) system which ge nerated this result tra nsmitted reference range : <=4.0. The reference r yared was not used to int erpret this result as normal/abnormal . [place] 922080-01-26 13:45:00 Test Item Value Reference Range Interpretation Comments Basophils (test code = 1.0 See_Comment [Aut omated message] The Basophils) system which ge nerated this result tra nsmitted reference range : <=1.0. The reference r yared was not used to int erpret this result as normal/abnormal . [place] 922080-01-26 13:45:00 Test Item Value Reference Range Interpretation Comments Neutrophils # (test code = Neutrophils 2.8 1.5-8.1 #) [place] 922080-01-26 13:45:00 Test Item Value Reference Range Interpretation Comments Lymphocytes # (test code = Lymphocytes 0.8 1.0-5.5 #) [facility] CenterCaoogljBVKQKJBWSX5467-18-40 13:45:00 Test Item Value Reference Range Interpretation Comments Monocytes # (test code 0.4 See_Comment [Aut omated message] The = Monocytes #) system which generated this result tra nsmitted reference range : <=0.8. The reference r yared was not used to int erpret this result as normal/abnormal . [facility] CenterKiqyxplNJMRQJYLIW2026-04-62 13:45:00 Test Item Value Reference Range Interpretation Comments Eosinophils # (test code 0.2 See_Comment [A utomated message] The = Eosinophils #) system whic h generated this result tra nsmitted reference range : <=0.5. The reference r yared was not used to int erpret this result as normal/abnormal . [facility]2020-01-26 13:45:00 Test Item Value Reference Range Interpretation Comments Glucose Lvl (test code = Glucose Lvl) 163 70-99 [place] 124950-01-26 13:45:00 Test Item Value Reference Range Interpretation Comments BUN (test code = BUN) 35 7-22 [place] 124950-01-26 13:45:00 Test Item Value Reference Range Interpretation Comments Creatinine Lvl (test code = Creatinine 9.71 0.50-1.40 Lvl) [facility]2020-01-26 13:45:00 Test Item Value Reference Range Interpretation Comments Sodium Lvl (test code = Sodium Lvl) 139 135-145 [place] 124950-01-26 13:45:00 Test Item Value Reference Range Interpretation Comments Potassium Lvl (test code = Potassium 3.4 3.5-5.1 Lvl) [place] 124950-01-26 13:45:00 Test Item Value Reference Range Interpretation Comments Chloride Lvl (test code = Chloride Lvl) 102 95-109 [place] 124950-01-26 13:45:00 Test Item Value Reference Range Interpretation Comments CO2 (test code = CO2) 29 24-32 [place] 124950-01-26 13:45:00 Test Item Value Reference Range Interpretation Comments Calcium Lvl (test code = Calcium Lvl) 9.0 8.5-10.5 [place] 124950-01-26 13:45:00 Test Item Value Reference Range Interpretation Comments AGAP (test code = AGAP) 11.4 10.0-20.0 [place] 124950-01-26 13:45:00 Test Item Value Reference Range Interpretation Comments eGFR (test code = eGFR) 5 [place] 922080-01-26 13:45:00 Test Item Value Reference Range Interpretation Comments WBC (test code = WBC) 4.3 3.7-10.4 [place] [address]-01-26 13:45:00 Test Item Value Reference Range Interpretation Comments RBC (test code = RBC) 3.00 4.70-6.10 [place] [address]-01-26 13:45:00 Test Item Value Reference Range Interpretation Comments Hgb (test code = Hgb) 8.4 14.0-18.0 [place] [address]-01-26 13:45:00 Test Item Value Reference Range Interpretation Comments Hct (test code = Hct) 25.3 42.0-54.0 [place] [address]-01-26 13:45:00 Test Item Value Reference Range Interpretation Comments MCV (test code = MCV) 84.3 80.0-94.0 [place] [address]-01-26 13:45:00 Test Item Value Reference Range Interpretation Comments MCH (test code = MCH) 28.2 pg 27.0-31.0 [place] 922080-01-26 13:45:00 Test Item Value Reference Range Interpretation Comments MCHC (test code = MCHC) 33.4 32.0-36.0 [facility]wz[facility]csVUIOZZGJHJ5505-86-92 13:45:00 Test Item Value Reference Range Interpretation Comments RDW (test code = RDW) 14.5 11.5-14.5 [place] 922080-01-26 13:45:00 Test Item Value Reference Range Interpretation Comments Platelet (test code = Platelet) 217 133-450 [place] 922080-01-26 13:45:00 Test Item Value Reference Range Interpretation Comments MPV (test code = MPV) 6.5 7.4-10.4 [place] 922080-01-26 13:45:00 Test Item Value Reference Range Interpretation Comments Segs (test code = Segs) 66.4 45.0-75.0 [place] [address]-01-26 13:45:00 Test Item Value Reference Range Interpretation Comments Lymphocytes (test code = Lymphocytes) 19.6 20.0-40.0 [place] 922080-01-26 13:45:00 Test Item Value Reference Range Interpretation Comments Monocytes (test code = Monocytes) 9.3 2.0-12.0 [facility] CenterGbvpzjcSAWAYSFTNT9066-47-31 13:45:00 Test Item Value Reference Range Interpretation Comments Eosinophils (test code = 3.7 See_Comment [A utomated message] The Eosinophils) system which ge nerated this result tra nsmitted reference range : <=4.0. The reference r yared was not used to int erpret this result as normal/abnormal . [place] 922080-01-26 13:45:00 Test Item Value Reference Range Interpretation Comments Basophils (test code = 1.0 See_Comment [Aut omated message] The Basophils) system which ge nerated this result tra nsmitted reference range : <=1.0. The reference r yared was not used to int erpret this result as normal/abnormal . [facility] CenterMwhczlqGTEWVUIJNJ9346-01-19 13:45:00 Test Item Value Reference Range Interpretation Comments Neutrophils # (test code = Neutrophils 2.8 1.5-8.1 #) [facility] CenterVhgbnphQIOCSEUPTX3212-14-51 13:45:00 Test Item Value Reference Range Interpretation Comments Lymphocytes # (test code = Lymphocytes 0.8 1.0-5.5 #) [place] 922080-01-26 13:45:00 Test Item Value Reference Range Interpretation Comments Monocytes # (test code 0.4 See_Comment [Aut omated message] The = Monocytes #) system which generated this result tra nsmitted reference range : <=0.8. The reference r yared was not used to int erpret this result as normal/abnormal . [place] 922080-01-26 13:45:00 Test Item Value Reference Range Interpretation Comments Eosinophils # (test code 0.2 See_Comment [A utomated message] The = Eosinophils #) system whic h generated this result tra nsmitted reference range : <=0.5. The reference r yared was not used to int erpret this result as normal/abnormal . [facility] [id number] 13:45:00 Test Item Value Reference Range Interpretation Comments Glucose Lvl (test code = Glucose Lvl) 163 70-99 [facility] [id number] 13:45:00 Test Item Value Reference Range Interpretation Comments BUN (test code = BUN) 35 7-22 [facility] [id number] 13:45:00 Test Item Value Reference Range Interpretation Comments Creatinine Lvl (test code = Creatinine 9.71 0.50-1.40 Lvl) [facility] [id number] 13:45:00 Test Item Value Reference Range Interpretation Comments Sodium Lvl (test code = Sodium Lvl) 139 135-145 [facility] [id number] 13:45:00 Test Item Value Reference Range Interpretation Comments Potassium Lvl (test code = Potassium 3.4 3.5-5.1 Lvl) [facility] [id number] 13:45:00 Test Item Value Reference Range Interpretation Comments Chloride Lvl (test code = Chloride Lvl) 102 95-109 [facility] [id number] 13:45:00 Test Item Value Reference Range Interpretation Comments CO2 (test code = CO2) 29 24-32 [facility] [id number] 13:45:00 Test Item Value Reference Range Interpretation Comments Calcium Lvl (test code = Calcium Lvl) 9.0 8.5-10.5 [facility] [id number] 13:45:00 Test Item Value Reference Range Interpretation Comments AGAP (test code = AGAP) 11.4 10.0-20.0 [facility]2020-01-26 13:45:00 Test Item Value Reference Range Interpretation Comments eGFR (test code = eGFR) 5 [facility]LwftedvPYSVVIBKHY2658-95-41 13:45:00 Test Item Value Reference Range Interpretation Comments WBC (test code = WBC) 4.3 3.7-10.4 [facility] HospitalColsubrBIIDERHAVQ5440-55-81 13:45:00 Test Item Value Reference Range Interpretation Comments RBC (test code = RBC) 3.00 4.70-6.10 [facility] HospitalQytzmieLGXKISLJST4040-27-12 13:45:00 Test Item Value Reference Range Interpretation Comments Hgb (test code = Hgb) 8.4 14.0-18.0 [facility] CenterJqemzchQYUWYICZYB3082-88-77 13:45:00 Test Item Value Reference Range Interpretation Comments Hct (test code = Hct) 25.3 42.0-54.0 [facility] CenterMpynsztBCGGGNDHFZ5330-10-33 13:45:00 Test Item Value Reference Range Interpretation Comments MCV (test code = MCV) 84.3 80.0-94.0 [facility] HospitalEwvlkvoCYLCVNQJJP2942-75-87 13:45:00 Test Item Value Reference Range Interpretation Comments MCH (test code = MCH) 28.2 pg 27.0-31.0 [facility] HospitalElfplvoVRQJKGTBHT9050-25-75 13:45:00 Test Item Value Reference Range Interpretation Comments MCHC (test code = MCHC) 33.4 32.0-36.0 [facility] HospitalZsorkkdEOWZUKQMUI9384-59-79 13:45:00 Test Item Value Reference Range Interpretation Comments RDW (test code = RDW) 14.5 11.5-14.5 [facility] HospitalKgxxlvbWSWURHRHUB7008-78-90 13:45:00 Test Item Value Reference Range Interpretation Comments Platelet (test code = Platelet) 217 133-450 [facility] HospitalWwqvhopSQQLBQCYHJ5404-29-64 13:45:00 Test Item Value Reference Range Interpretation Comments MPV (test code = MPV) 6.5 7.4-10.4 [facility] CenterPdbntqqXBRHTTPXPR4203-83-14 13:45:00 Test Item Value Reference Range Interpretation Comments Segs (test code = Segs) 66.4 45.0-75.0 [facility] CenterOwnwvrtJMPSMSIHAC3415-95-87 13:45:00 Test Item Value Reference Range Interpretation Comments Lymphocytes (test code = Lymphocytes) 19.6 20.0-40.0 [facility] CenterQlspxgmFBQZWHWESN8524-34-72 13:45:00 Test Item Value Reference Range Interpretation Comments Monocytes (test code = Monocytes) 9.3 2.0-12.0 [facility] CenterGakqawkBMVNYIMGSF0849-89-82 13:45:00 Test Item Value Reference Range Interpretation Comments Eosinophils (test code = 3.7 See_Comment [A utomated message] The Eosinophils) system which ge nerated this result tra nsmitted reference range : <=4.0. The reference r yared was not used to int erpret this result as normal/abnormal . [facility] CenterAnroseyDOTHVLCNTO1224-18-99 13:45:00 Test Item Value Reference Range Interpretation Comments Basophils (test code = 1.0 See_Comment [Aut omated message] The Basophils) system which ge nerated this result tra nsmitted reference range : <=1.0. The reference r yared was not used to int erpret this result as normal/abnormal . [facility] CenterYapitdlBCMTOMQBLB4848-48-51 13:45:00 Test Item Value Reference Range Interpretation Comments Neutrophils # (test code = Neutrophils 2.8 1.5-8.1 #) [facility] CenterWciydtlUYJHDZDNCO0208-59-71 13:45:00 Test Item Value Reference Range Interpretation Comments Lymphocytes # (test code = Lymphocytes 0.8 1.0-5.5 #) [facility] CenterNqmhyxyWRMFQQHCXX9777-25-97 13:45:00 Test Item Value Reference Range Interpretation Comments Monocytes # (test code 0.4 See_Comment [Aut omated message] The = Monocytes #) system which generated this result tra nsmitted reference range : <=0.8. The reference r yared was not used to int erpret this result as normal/abnormal . [facility] CenterZkeaukrORGLFRJSSA3315-02-23 13:45:00 Test Item Value Reference Range Interpretation Comments Eosinophils # (test code 0.2 See_Comment [A utomated message] The = Eosinophils #) system whic h generated this result tra nsmitted reference range : <=0.5. The reference r ayred was not used to int erpret this result as normal/abnormal . [facility] HospitalTnyqcfnJIOFMTUSUZBK0141-57-56 13:25:00 Test Item Value Reference Range Interpretation Comments Sodium Lvl (test code = Sodium Lvl) 136 135-145 [facility] HospitalDaofaisVLRPWSTOAUYM0375-03-24 13:25:00 Test Item Value Reference Range Interpretation Comments Potassium Lvl (test code = Potassium 3.7 3.5-5.1 Lvl) [facility] HospitalGwxoipgHHSYTBNLHQBH8705-62-53 13:25:00 Test Item Value Reference Range Interpretation Comments Chloride Lvl (test code = Chloride Lvl) 99 95-109 [facility] HospitalYljeprzSYGWQYLVIRCY9998-86-53 13:25:00 Test Item Value Reference Range Interpretation Comments Glucose Lvl (test code = Glucose Lvl) 137 70-99 [facility] HospitalSffydduZAXOYQBAGQGE6015-72-23 13:25:00 Test Item Value Reference Range Interpretation Comments BUN (test code = BUN) 42 7-22 [facility] HospitalFszdxvaAJOIBDIIKNOK1267-23-64 13:25:00 Test Item Value Reference Range Interpretation Comments Creatinine Lvl (test code = Creatinine 9.35 0.50-1.40 Lvl) [facility] HospitalYuyjbwzNHEQPKJZQDKD6914-19-50 13:25:00 Test Item Value Reference Range Interpretation Comments CO2 (test code = CO2) 32 24-32 [facility] HospitalVsafmzpQLAMNAZDWQSY1464-33-27 13:25:00 Test Item Value Reference Range Interpretation Comments Calcium Lvl (test code = Calcium Lvl) 8.8 8.5-10.5 [facility] HospitalIlclczqTCWVQAVSEERH9049-41-46 13:25:00 Test Item Value Reference Range Interpretation Comments AGAP (test code = AGAP) 8.7 10.0-20.0 [facility] HospitalRvzkgoyOASPZTOHWMDJ7678-05-48 13:25:00 Test Item Value Reference Range Interpretation Comments eGFR (test code = eGFR) 6 [facility] HospitalSodknerAVNRUDHHLPGT0355-74-94 13:25:00 Test Item Value Reference Range Interpretation Comments Sodium Lvl (test code = Sodium Lvl) 136 135-145 [facility] HospitalCwywrqqTOGAJHKGNDOK9948-01-46 13:25:00 Test Item Value Reference Range Interpretation Comments Potassium Lvl (test code = Potassium 3.7 3.5-5.1 Lvl) [facility] HospitalHcmalkkJYLCBCPFWAXV5566-84-36 13:25:00 Test Item Value Reference Range Interpretation Comments Chloride Lvl (test code = Chloride Lvl) 99 95-109 [facility] HospitalZaiuetaTYLVULWUHDPI0463-14-12 13:25:00 Test Item Value Reference Range Interpretation Comments Glucose Lvl (test code = Glucose Lvl) 137 70-99 [facility] HospitalXhmuxzzGNLZTYRLPDPB8313-84-08 13:25:00 Test Item Value Reference Range Interpretation Comments BUN (test code = BUN) 42 7-22 [facility] HospitalSndlssoVNIJVAZYIEWC1513-10-71 13:25:00 Test Item Value Reference Range Interpretation Comments Creatinine Lvl (test code = Creatinine 9.35 0.50-1.40 Lvl) [facility] HospitalVdvtnvsFWZBNRYWQCDA3499-98-07 13:25:00 Test Item Value Reference Range Interpretation Comments CO2 (test code = CO2) 32 24-32 [facility] HospitalHfcmftnPBATJZRVJSIL0497-07-65 13:25:00 Test Item Value Reference Range Interpretation Comments Calcium Lvl (test code = Calcium Lvl) 8.8 8.5-10.5 [facility] HospitalPohmpyfSUELTYYOHJCU0076-10-37 13:25:00 Test Item Value Reference Range Interpretation Comments AGAP (test code = AGAP) 8.7 10.0-20.0 [facility] HospitalZhvxuoyBNUEHFLJPMTN2241-34-47 13:25:00 Test Item Value Reference Range Interpretation Comments eGFR (test code = eGFR) 6 [facility] HospitalSueahjhBUDJYJUKYOIO9428-75-76 13:25:00 Test Item Value Reference Range Interpretation Comments Sodium Lvl (test code = Sodium Lvl) 136 135-145 [facility] HospitalLqjuskgAIFWYKCUFCRS2771-12-26 13:25:00 Test Item Value Reference Range Interpretation Comments Potassium Lvl (test code = Potassium 3.7 3.5-5.1 Lvl) [facility] HospitalOuuppucMIGAKEOYFRYK1536-65-19 13:25:00 Test Item Value Reference Range Interpretation Comments Chloride Lvl (test code = Chloride Lvl) 99 95-109 [facility] HospitalDvmfnvwVXCFXOTHDOOQ3395-89-63 13:25:00 Test Item Value Reference Range Interpretation Comments Glucose Lvl (test code = Glucose Lvl) 137 70-99 [facility] HospitalShnxkqxTJORZMRQEZBI6737-13-05 13:25:00 Test Item Value Reference Range Interpretation Comments BUN (test code = BUN) 42 7-22 [facility] HospitalBjjbqrcWUSBCFRZMFCU3342-63-35 13:25:00 Test Item Value Reference Range Interpretation Comments Creatinine Lvl (test code = Creatinine 9.35 0.50-1.40 Lvl) [facility] HospitalRqhodzkMSKDZVNDKTXQ6577-36-19 13:25:00 Test Item Value Reference Range Interpretation Comments CO2 (test code = CO2) 32 24-32 [facility] HospitalKpyzmjsLMFPICETBNZH6454-04-16 13:25:00 Test Item Value Reference Range Interpretation Comments Calcium Lvl (test code = Calcium Lvl) 8.8 8.5-10.5 [facility] HospitalTidvseaYTSTPERKJGHK6121-16-14 13:25:00 Test Item Value Reference Range Interpretation Comments AGAP (test code = AGAP) 8.7 10.0-20.0 [facility] HospitalFijlupgGGDALLZNSJZK9903-03-64 13:25:00 Test Item Value Reference Range Interpretation Comments eGFR (test code = eGFR) 6 [facility] HospitalQvnbqtfHHFCBGSGBRZW6241-62-43 13:25:00 Test Item Value Reference Range Interpretation Comments Sodium Lvl (test code = Sodium Lvl) 136 135-145 [facility] HospitalBmmtxslCDBULHLCCQNU4523-51-60 13:25:00 Test Item Value Reference Range Interpretation Comments Potassium Lvl (test code = Potassium 3.7 3.5-5.1 Lvl) [facility] HospitalPyntezxEQSPDWAURVDX9866-28-92 13:25:00 Test Item Value Reference Range Interpretation Comments Chloride Lvl (test code = Chloride Lvl) 99 95-109 [facility] HospitalPckvjdnNDBRLGOKOFKD9423-52-39 13:25:00 Test Item Value Reference Range Interpretation Comments Glucose Lvl (test code = Glucose Lvl) 137 70-99 [facility] HospitalXauxiqnDNKNVDWUNJRA9986-66-17 13:25:00 Test Item Value Reference Range Interpretation Comments BUN (test code = BUN) 42 7-22 [facility] HospitalXuwkvczFRTCWFLMJXFK0553-19-30 13:25:00 Test Item Value Reference Range Interpretation Comments Creatinine Lvl (test code = Creatinine 9.35 0.50-1.40 Lvl) [facility] HospitalHokubyrOUDGMWGBJKZL8631-10-70 13:25:00 Test Item Value Reference Range Interpretation Comments CO2 (test code = CO2) 32 24-32 [facility] HospitalNbdxpovCXCWLLWFULVV3866-10-53 13:25:00 Test Item Value Reference Range Interpretation Comments Calcium Lvl (test code = Calcium Lvl) 8.8 8.5-10.5 [facility] HospitalRonenxqAKXNDYNOTBGL5961-28-21 13:25:00 Test Item Value Reference Range Interpretation Comments AGAP (test code = AGAP) 8.7 10.0-20.0 [facility] HospitalXtvshhpUWVQOFEPPSZU1705-97-00 13:25:00 Test Item Value Reference Range Interpretation Comments eGFR (test code = eGFR) 6 [facility] HospitalQcfmextZMITNWTILH4887-78-80 17:58:00 Test Item Value Reference Range Interpretation Comments Vanco Lvl (test code = Vanco Lvl) 10.6 [facility] HospitalQawrvuxXGXGDAXOQO3170-49-92 17:58:00 Test Item Value Reference Range Interpretation Comments Vanco Lvl (test code = Vanco Lvl) 10.6 [facility] ClubLymuyevDDENCFJTQW4630-54-12 17:58:00 Test Item Value Reference Range Interpretation Comments Vanco Lvl (test code = Vanco Lvl) 10.6 [place] 46386020-01-24 17:58:00 Test Item Value Reference Range Interpretation Comments Vanco Lvl (test code = Vanco Lvl) 10.6 [facility] BXVXTM5597-84-06 15:00:00 Test Item Value Reference Range Interpretation Comments Color BF (test code = Colorless (11/01/19 9:00 Color BF) AM) [facility]2020-01-24 15:00:00 Test Item Value Reference Range Interpretation Comments Clarity BF (test code = Slight Cloudy (11/01/19 Clarity BF) 9:00 AM) [facility] YBDRLU0335-14-66 15:00:00 Test Item Value Reference Range Interpretation Comments Nucleated Cells BF (test code = 579 Nucleated Cells BF) [facility]2020-01-24 15:00:00 Test Item Value Reference Range Interpretation Comments RBC BF (test code = RBC BF) 54 [facility] WCYNSB1766-35-98 15:00:00 Test Item Value Reference Range Interpretation Comments Neutrophils BF (test code = Neutrophils 20 BF) [facility]2020-01-24 15:00:00 Test Item Value Reference Range Interpretation Comments Lymph BF (test code = Lymph BF) 41 [facility] NIFVYU9668-95-94 15:00:00 Test Item Value Reference Range Interpretation Comments Macrophage BF (test code = Macrophage 35 BF) [facility]2020-01-24 15:00:00 Test Item Value Reference Range Interpretation Comments Meso BF (test code = Meso BF) 4 [facility] UCOAGU1756-00-54 15:00:00 Test Item Value Reference Range Interpretation Comments CellCnt BF Type (test Periton (11/01/19 9:00 code = CellCnt BF Type) AM) [facility] Zuqjoi2906-09-40 15:00:00 Test Item Value Reference Range Interpretation Comments Gram Stain Report No Wbc'S Or Organisms (test code = Gram Seen Stain Report) [facility] HospitalCulture: Aspirate/Body Fluid/Vtnhyb4563-38-92 15:00:00 Test Item Value Reference Range Interpretation Comments Culture: Aspirate/Body Fluid/Tissue No Growth (test code = Culture: Aspirate/Body Fluid/Tissue) [facility]2020-01-24 15:00:00 Test Item Value Reference Range Interpretation Comments Color BF (test code = Colorless (11/01/19 9:00 Color BF) AM) [facility]2020-01-24 15:00:00 Test Item Value Reference Range Interpretation Comments Clarity BF (test code = Slight Cloudy (11/01/19 Clarity BF) 9:00 AM) [facility]2020-01-24 15:00:00 Test Item Value Reference Range Interpretation Comments Nucleated Cells BF (test code = 579 Nucleated Cells BF) [facility]2020-01-24 15:00:00 Test Item Value Reference Range Interpretation Comments RBC BF (test code = RBC BF) 54 [facility]2020-01-24 15:00:00 Test Item Value Reference Range Interpretation Comments Neutrophils BF (test code = Neutrophils 20 BF) [facility]2020-01-24 15:00:00 Test Item Value Reference Range Interpretation Comments Lymph BF (test code = Lymph BF) 41 [facility]2020-01-24 15:00:00 Test Item Value Reference Range Interpretation Comments Macrophage BF (test code = Macrophage 35 BF) [facility]2020-01-24 15:00:00 Test Item Value Reference Range Interpretation Comments Meso BF (test code = Meso BF) 4 [facility]2020-01-24 15:00:00 Test Item Value Reference Range Interpretation Comments CellCnt BF Type (test Periton (11/01/19 9:00 code = CellCnt BF Type) AM) [facility] HospitalGram St[facility] Gglgap9359-31-73 15:00:00 Test Item Value Reference Range Interpretation Comments Gram Stain Report No Wbc'S Or Organisms (test code = Gram Seen Stain Report) [facility]irate/Body Fluid/Lsqwnf9139-08-47 15:00:00 Test Item Value Reference Range Interpretation Comments Culture: Aspirate/Body Fluid/Tissue No Growth (test code = Culture: Aspirate/Body Fluid/Tissue) [facility] DHGPAW2768-72-42 15:00:00 Test Item Value Reference Range Interpretation Comments Color BF (test code = Colorless (11/01/19 9:00 Color BF) AM) [facility]2020-01-24 15:00:00 Test Item Value Reference Range Interpretation Comments Clarity BF (test code = Slight Cloudy (11/01/19 Clarity BF) 9:00 AM) [facility]2020-01-24 15:00:00 Test Item Value Reference Range Interpretation Comments Nucleated Cells BF (test code = 579 Nucleated Cells BF) [facility] LIPYPK0265-41-23 15:00:00 Test Item Value Reference Range Interpretation Comments RBC BF (test code = RBC BF) 54 [facility] SJPLMK4312-72-36 15:00:00 Test Item Value Reference Range Interpretation Comments Neutrophils BF (test code = Neutrophils 20 BF) [facility] QEQDNT3876-89-79 15:00:00 Test Item Value Reference Range Interpretation Comments Lymph BF (test code = Lymph BF) 41 [facility] SRJPBW6742-27-73 15:00:00 Test Item Value Reference Range Interpretation Comments Macrophage BF (test code = Macrophage 35 BF) [facility] [id number] 15:00:00 Test Item Value Reference Range Interpretation Comments Meso BF (test code = Meso BF) 4 [facility] QTKIBV1665-33-96 15:00:00 Test Item Value Reference Range Interpretation Comments CellCnt BF Type (test Periton (11/01/19 9:00 code = CellCnt BF Type) AM) [facility] HospitalGram [facility] Yugilo1017-87-28 15:00:00 Test Item Value Reference Range Interpretation Comments Gram Stain Report No Wbc'S Or Organisms (test code = Gram Seen Stain Report) [facility] HospitalCulture: Aspirate/Body Fluid/Gesfuo3235-96-89 15:00:00 Test Item Value Reference Range Interpretation Comments Culture: Aspirate/Body Fluid/Tissue No Growth (test code = Culture: Aspirate/Body Fluid/Tissue) [facility] FIQZJL5723-49-15 15:00:00 Test Item Value Reference Range Interpretation Comments Color BF (test code = Colorless (11/01/19 9:00 Color BF) AM) [facility] KPSMFF4829-43-41 15:00:00 Test Item Value Reference Range Interpretation Comments Clarity BF (test code = Slight Cloudy (11/01/19 Clarity BF) 9:00 AM) [facility]2020-01-24 15:00:00 Test Item Value Reference Range Interpretation Comments Nucleated Cells BF (test code = 579 Nucleated Cells BF) [facility]2020-01-24 15:00:00 Test Item Value Reference Range Interpretation Comments RBC BF (test code = RBC BF) 54 [facility]2020-01-24 15:00:00 Test Item Value Reference Range Interpretation Comments Neutrophils BF (test code = Neutrophils 20 BF) [facility]2020-01-24 15:00:00 Test Item Value Reference Range Interpretation Comments Lymph BF (test code = Lymph BF) 41 [facility]2020-01-24 15:00:00 Test Item Value Reference Range Interpretation Comments Macrophage BF (test code = Macrophage 35 BF) [facility]2020-01-24 15:00:00 Test Item Value Reference Range Interpretation Comments Meso BF (test code = Meso BF) 4 [facility] FMXHHQ7954-74-79 15:00:00 Test Item Value Reference Range Interpretation Comments CellCnt BF Type (test Periton (11/01/19 9:00 code = CellCnt BF Type) AM) [facility] Dnaega3607-64-53 15:00:00 Test Item Value Reference Range Interpretation Comments Gram Stain Report No Wbc'S Or Organisms (test code = Gram Seen Stain Report) [facility] HospitalCulture: Aspirate/Body Fluid/Jelybk5443-03-64 15:00:00 Test Item Value Reference Range Interpretation Comments Culture: Aspirate/Body Fluid/Tissue No Growth (test code = Culture: Aspirate/Body Fluid/Tissue) [facility]2020-01-23 18:35:00 Test Item Value Reference Range Interpretation Comments Color BF (test code = Colorless (10/31/19 12:35 Color BF) PM) [facility]2020-01-23 18:35:00 Test Item Value Reference Range Interpretation Comments Clarity BF (test code = Slight Cloudy (10/31/19 Clarity BF) 12:35 PM) [facility]2020-01-23 18:35:00 Test Item Value Reference Range Interpretation Comments Nucleated Cells BF (test code = 557 Nucleated Cells BF) [facility]2020-01-23 18:35:00 Test Item Value Reference Range Interpretation Comments RBC BF (test code = RBC BF) 0 [facility]2020-01-23 18:35:00 Test Item Value Reference Range Interpretation Comments Neutrophils BF (test code = Neutrophils 35 BF) [facility]2020-01-23 18:35:00 Test Item Value Reference Range Interpretation Comments Lymph BF (test code = Lymph BF) 21 [facility]2020-01-23 18:35:00 Test Item Value Reference Range Interpretation Comments Macrophage BF (test code = Macrophage 43 BF) [facility]2020-01-23 18:35:00 Test Item Value Reference Range Interpretation Comments Eos BF (test code = Eos BF) 1 [facility]2020-01-23 18:35:00 Test Item Value Reference Range Interpretation Comments CellCnt BF Type (test Periton (10/31/19 12:35 code = CellCnt BF Type) PM) [facility] [id number] 18:35:00 Test Item Value Reference Range Interpretation Comments Gram Stain Report Rare WBC's No Organisms (test code = Gram Seen Stain Report) [facility] Aspirate/Body Fluid/[id number] 18:35:00 Test Item Value Reference Range Interpretation Comments Culture: Aspirate/Body Fluid/Tissue No Growth (test code = Culture: Aspirate/Body Fluid/Tissue) [facility]2020-01-23 18:35:00 Test Item Value Reference Range Interpretation Comments Color BF (test code = Colorless (10/31/19 12:35 Color BF) PM) [facility]2020-01-23 18:35:00 Test Item Value Reference Range Interpretation Comments Clarity BF (test code = Slight Cloudy (10/31/19 Clarity BF) 12:35 PM) [facility]2020-01-23 18:35:00 Test Item Value Reference Range Interpretation Comments Nucleated Cells BF (test code = 557 Nucleated Cells BF) [facility]2020-01-23 18:35:00 Test Item Value Reference Range Interpretation Comments RBC BF (test code = RBC BF) 0 [facility]2020-01-23 18:35:00 Test Item Value Reference Range Interpretation Comments Neutrophils BF (test code = Neutrophils 35 BF) [facility]2020-01-23 18:35:00 Test Item Value Reference Range Interpretation Comments Lymph BF (test code = Lymph BF) 21 [facility]2020-01-23 18:35:00 Test Item Value Reference Range Interpretation Comments Macrophage BF (test code = Macrophage 43 BF) [facility]2020-01-23 18:35:00 Test Item Value Reference Range Interpretation Comments Eos BF (test code = Eos BF) 1 [facility]2020-01-23 18:35:00 Test Item Value Reference Range Interpretation Comments CellCnt BF Type (test Periton (10/31/19 12:35 code = CellCnt BF Type) PM) [facility] [id number] 18:35:00 Test Item Value Reference Range Interpretation Comments Gram Stain Report Rare WBC's No Organisms (test code = Gram Seen Stain Report) [facility] Aspirate/Body Fluid/[id number] 18:35:00 Test Item Value Reference Range Interpretation Comments Culture: Aspirate/Body Fluid/Tissue No Growth (test code = Culture: Aspirate/Body Fluid/Tissue) [facility]2020-01-23 18:35:00 Test Item Value Reference Range Interpretation Comments Color BF (test code = Colorless (10/31/19 12:35 Color BF) PM) [facility]2020-01-23 18:35:00 Test Item Value Reference Range Interpretation Comments Clarity BF (test code = Slight Cloudy (10/31/19 Clarity BF) 12:35 PM) [facility]2020-01-23 18:35:00 Test Item Value Reference Range Interpretation Comments Nucleated Cells BF (test code = 557 Nucleated Cells BF) [facility]2020-01-23 18:35:00 Test Item Value Reference Range Interpretation Comments RBC BF (test code = RBC BF) 0 [facility] [id number] 18:35:00 Test Item Value Reference Range Interpretation Comments Neutrophils BF (test code = Neutrophils 35 BF) [facility] [id number] 18:35:00 Test Item Value Reference Range Interpretation Comments Lymph BF (test code = Lymph BF) 21 [facility]2020-01-23 18:35:00 Test Item Value Reference Range Interpretation Comments Macrophage BF (test code = Macrophage 43 BF) [facility]2020-01-23 18:35:00 Test Item Value Reference Range Interpretation Comments Eos BF (test code = Eos BF) 1 [facility]2020-01-23 18:35:00 Test Item Value Reference Range Interpretation Comments CellCnt BF Type (test Periton (10/31/19 12:35 code = CellCnt BF Type) PM) [facility] [id number] 18:35:00 Test Item Value Reference Range Interpretation Comments Gram Stain Report Rare WBC's No Organisms (test code = Gram Seen Stain Report) [facility] Aspirate/Body Fluid/[id number] 18:35:00 Test Item Value Reference Range Interpretation Comments Culture: Aspirate/Body Fluid/Tissue No Growth (test code = Culture: Aspirate/Body Fluid/Tissue) [facility]2020-01-23 18:35:00 Test Item Value Reference Range Interpretation Comments Color BF (test code = Colorless (10/31/19 12:35 Color BF) PM) [facility]2020-01-23 18:35:00 Test Item Value Reference Range Interpretation Comments Clarity BF (test code = Slight Cloudy (10/31/19 Clarity BF) 12:35 PM) [facility]2020-01-23 18:35:00 Test Item Value Reference Range Interpretation Comments Nucleated Cells BF (test code = 557 Nucleated Cells BF) [facility]2020-01-23 18:35:00 Test Item Value Reference Range Interpretation Comments RBC BF (test code = RBC BF) 0 [facility] [id number] 18:35:00 Test Item Value Reference Range Interpretation Comments Neutrophils BF (test code = Neutrophils 35 BF) [facility] [id number] 18:35:00 Test Item Value Reference Range Interpretation Comments Lymph BF (test code = Lymph BF) 21 [facility] [id number] 18:35:00 Test Item Value Reference Range Interpretation Comments Macrophage BF (test code = Macrophage 43 BF) [facility] HospitalBODY [id number] 18:35:00 Test Item Value Reference Range Interpretation Comments Eos BF (test code = Eos BF) 1 [facility] [id number] 18:35:00 Test Item Value Reference Range Interpretation Comments CellCnt BF Type (test Periton (10/31/19 12:35 code = CellCnt BF Type) PM) [facility] [id number] 18:35:00 Test Item Value Reference Range Interpretation Comments Gram Stain Report Rare WBC's No Organisms (test code = Gram Seen Stain Report) [facility]Culture: Aspirate/Body Fluid/[id number] 18:35:00 Test Item Value Reference Range Interpretation Comments Culture: Aspirate/Body Fluid/Tissue No Growth (test code = Culture: Aspirate/Body Fluid/Tissue) [facility] HospitalYourListen.com [id number] 10:35:00 Test Item Value Reference Range Interpretation Comments Phosphorus (test code = Phosphorus) 4.3 2.5-4.5 [facility] HospitalCHEM [id number] 10:35:00 Test Item Value Reference Range Interpretation Comments Magnesium Lvl (test code = Magnesium 2.0 1.8-2.4 Lvl) [facility] HospitalSvedmbyMRLNKVQGVK0244-13-20 10:35:00 Test Item Value Reference Range Interpretation Comments WBC (test code = WBC) 6.3 3.7-10.4 [facility]AREQSTSM8110[facility] 10:35:00 Test Item Value Reference Range Interpretation Comments RBC (test code = RBC) 2.76 4.70-6.10 [facility]PerltbrQSZMDOWGHQ6593-40-81 10:35:00 Test Item Value Reference Range Interpretation Comments Hgb (test code = Hgb) 8.1 14.0-18.0 [facility] Hospit[id number] 10:35:00 Test Item Value Reference Range Interpretation Comments Hct (test code = Hct) 23.5 42.0-54.0 [facility] HospitalCaqjhbjWGEJUNUSNG9441-92-40 10:35:00 Test Item Value Reference Range Interpretation Comments MCV (test code = MCV) 85.2 80.0-94.0 [place] [id number] 10:35:00 Test Item Value Reference Range Interpretation Comments MCH (test code = MCH) 29.2 pg 27.0-31.0 [place] 922080-01-23 10:35:00 Test Item Value Reference Range Interpretation Comments MCHC (test code = MCHC) 34.3 32.0-36.0 [place] 922080-01-23 10:35:00 Test Item Value Reference Range Interpretation Comments RDW (test code = RDW) 14.5 11.5-14.5 [facility] CenterNnpyzplZTXVDINSOJ4664-13-90 10:35:00 Test Item Value Reference Range Interpretation Comments Platelet (test code = Platelet) 188 133-450 [facility] CenterJzakjzzCLNUMEEJXN0430-84-37 10:35:00 Test Item Value Reference Range Interpretation Comments MPV (test code = MPV) 7.0 7.4-10.4 [place] 922080-01-23 10:35:00 Test Item Value Reference Range Interpretation Comments Segs (test code = Segs) 77.7 45.0-75.0 [facility] CenterRuzbzltNDASOKYEIR4237-77-25 10:35:00 Test Item Value Reference Range Interpretation Comments Lymphocytes (test code = Lymphocytes) 10.2 20.0-40.0 [place] 922080-01-23 10:35:00 Test Item Value Reference Range Interpretation Comments Monocytes (test code = Monocytes) 10.0 2.0-12.0 [place] [address]-01-23 10:35:00 Test Item Value Reference Range Interpretation Comments Eosinophils (test code = 1.7 See_Comment [A utomated message] The Eosinophils) system which ge nerated this result tra nsmitted reference range : <=4.0. The reference r yared was not used to int erpret this result as normal/abnormal . [facility] CenterBlhyftpMGGGKTGMUL0861-93-19 10:35:00 Test Item Value Reference Range Interpretation Comments Basophils (test code = 0.4 See_Comment [Aut omated message] The Basophils) system which ge nerated this result tra nsmitted reference range : <=1.0. The reference r yared was not used to int erpret this result as normal/abnormal . [place] 922080-01-23 10:35:00 Test Item Value Reference Range Interpretation Comments Neutrophils # (test code = Neutrophils 4.9 1.5-8.1 #) [facility] CenterQjlauovTQYKYMNWLS2696-41-32 10:35:00 Test Item Value Reference Range Interpretation Comments Lymphocytes # (test code = Lymphocytes 0.6 1.0-5.5 #) [place] 922080-01-23 10:35:00 Test Item Value Reference Range Interpretation Comments Monocytes # (test code 0.6 See_Comment [Aut omated message] The = Monocytes #) system which generated this result tra nsmitted reference range : <=0.8. The reference r yared was not used to int erpret this result as normal/abnormal . [place] 922080-01-23 10:35:00 Test Item Value Reference Range Interpretation Comments Eosinophils # (test code 0.1 See_Comment [A utomated message] The = Eosinophils #) system whic h generated this result tra nsmitted reference range : <=0.5. The reference r yared was not used to int erpret this result as normal/abnormal . [facility]YourListen.[facility] [id number] 10:35:00 Test Item Value Reference Range Interpretation Comments Phosphorus (test code = Phosphorus) 4.3 2.5-4.5 [facility]Your[facility] [id number] 10:35:00 Test Item Value Reference Range Interpretation Comments Magnesium Lvl (test code = Magnesium 2.0 1.8-2.4 Lvl) [place] 922080-01-23 10:35:00 Test Item Value Reference Range Interpretation Comments WBC (test code = WBC) 6.3 3.7-10.4 [place] [address]-01-23 10:35:00 Test Item Value Reference Range Interpretation Comments RBC (test code = RBC) 2.76 4.70-6.10 [place] 922080-01-23 10:35:00 Test Item Value Reference Range Interpretation Comments Hgb (test code = Hgb) 8.1 14.0-18.0 [place] [address]-01-23 10:35:00 Test Item Value Reference Range Interpretation Comments Hct (test code = Hct) 23.5 42.0-54.0 [place] 922080-01-23 10:35:00 Test Item Value Reference Range Interpretation Comments MCV (test code = MCV) 85.2 80.0-94.0 [place] 922080-01-23 10:35:00 Test Item Value Reference Range Interpretation Comments MCH (test code = MCH) 29.2 pg 27.0-31.0 [facility] CenterKsiunreFHCFWCFYJM5783-05-82 10:35:00 Test Item Value Reference Range Interpretation Comments MCHC (test code = MCHC) 34.3 32.0-36.0 [facility] CenterHhoefukOUZOUQOYIG7007-62-32 10:35:00 Test Item Value Reference Range Interpretation Comments RDW (test code = RDW) 14.5 11.5-14.5 [place] 922080-01-23 10:35:00 Test Item Value Reference Range Interpretation Comments Platelet (test code = Platelet) 188 133-450 [facility] CenterHpsgnbmEBCSRVJNPX6161-82-40 10:35:00 Test Item Value Reference Range Interpretation Comments MPV (test code = MPV) 7.0 7.4-10.4 [facility] CenterUrdbptuXBYODURAPA8175-32-68 10:35:00 Test Item Value Reference Range Interpretation Comments Segs (test code = Segs) 77.7 45.0-75.0 [facility] CenterJjehgdzGNQNJVLKPW7181-77-84 10:35:00 Test Item Value Reference Range Interpretation Comments Lymphocytes (test code = Lymphocytes) 10.2 20.0-40.0 [place] 922080-01-23 10:35:00 Test Item Value Reference Range Interpretation Comments Monocytes (test code = Monocytes) 10.0 2.0-12.0 [place] 922080-01-23 10:35:00 Test Item Value Reference Range Interpretation Comments Eosinophils (test code = 1.7 See_Comment [A utomated message] The Eosinophils) system which ge nerated this result tra nsmitted reference range : <=4.0. The reference r yared was not used to int erpret this result as normal/abnormal . [place] 922080-01-23 10:35:00 Test Item Value Reference Range Interpretation Comments Basophils (test code = 0.4 See_Comment [Aut omated message] The Basophils) system which ge nerated this result tra nsmitted reference range : <=1.0. The reference r yared was not used to int erpret this result as normal/abnormal . [place] 922080-01-23 10:35:00 Test Item Value Reference Range Interpretation Comments Neutrophils # (test code = Neutrophils 4.9 1.5-8.1 #) [facility] CenterEnozncuGVOIQCOKAI2558-65-03 10:35:00 Test Item Value Reference Range Interpretation Comments Lymphocytes # (test code = Lymphocytes 0.6 1.0-5.5 #) [place] 922080-01-23 10:35:00 Test Item Value Reference Range Interpretation Comments Monocytes # (test code 0.6 See_Comment [Aut omated message] The = Monocytes #) system which generated this result tra nsmitted reference range : <=0.8. The reference r yraed was not used to int erpret this result as normal/abnormal . [place] 922080-01-23 10:35:00 Test Item Value Reference Range Interpretation Comments Eosinophils # (test code 0.1 See_Comment [A utomated message] The = Eosinophils #) system whic h generated this result tra nsmitted reference range : <=0.5. The reference r yared was not used to int erpret this result as normal/abnormal . [facility]Your[facility] [id number] 10:35:00 Test Item Value Reference Range Interpretation Comments Phosphorus (test code = Phosphorus) 4.3 2.5-4.5 [facility]Your[facility] [id number] 10:35:00 Test Item Value Reference Range Interpretation Comments Magnesium Lvl (test code = Magnesium 2.0 1.8-2.4 Lvl) [place] 922080-01-23 10:35:00 Test Item Value Reference Range Interpretation Comments WBC (test code = WBC) 6.3 3.7-10.4 [place] [address]-01-23 10:35:00 Test Item Value Reference Range Interpretation Comments RBC (test code = RBC) 2.76 4.70-6.10 [place] 922080-01-23 10:35:00 Test Item Value Reference Range Interpretation Comments Hgb (test code = Hgb) 8.1 14.0-18.0 [place] [address]-01-23 10:35:00 Test Item Value Reference Range Interpretation Comments Hct (test code = Hct) 23.5 42.0-54.0 [place] 922080-01-23 10:35:00 Test Item Value Reference Range Interpretation Comments MCV (test code = MCV) 85.2 80.0-94.0 [place] 922080-01-23 10:35:00 Test Item Value Reference Range Interpretation Comments MCH (test code = MCH) 29.2 pg 27.0-31.0 [place] 922080-01-23 10:35:00 Test Item Value Reference Range Interpretation Comments MCHC (test code = MCHC) 34.3 32.0-36.0 [place] 922080-01-23 10:35:00 Test Item Value Reference Range Interpretation Comments RDW (test code = RDW) 14.5 11.5-14.5 [place] 922080-01-23 10:35:00 Test Item Value Reference Range Interpretation Comments Platelet (test code = Platelet) 188 133-450 [facility] CenterWammcvtGBZLLRNGHV0749-68-90 10:35:00 Test Item Value Reference Range Interpretation Comments MPV (test code = MPV) 7.0 7.4-10.4 [place] 922080-01-23 10:35:00 Test Item Value Reference Range Interpretation Comments Segs (test code = Segs) 77.7 45.0-75.0 [facility] CenterWpnafkhPHMFAGOIHC0628-44-90 10:35:00 Test Item Value Reference Range Interpretation Comments Lymphocytes (test code = Lymphocytes) 10.2 20.0-40.0 [place] 922080-01-23 10:35:00 Test Item Value Reference Range Interpretation Comments Monocytes (test code = Monocytes) 10.0 2.0-12.0 [place] [address]-01-23 10:35:00 Test Item Value Reference Range Interpretation Comments Eosinophils (test code = 1.7 See_Comment [A utomated message] The Eosinophils) system which ge nerated this result tra nsmitted reference range : <=4.0. The reference r yared was not used to int erpret this result as normal/abnormal . [facility] CenterFwlrjhzZCKQUQCXOE8404-57-36 10:35:00 Test Item Value Reference Range Interpretation Comments Basophils (test code = 0.4 See_Comment [Aut omated message] The Basophils) system which ge nerated this result tra nsmitted reference range : <=1.0. The reference r yared was not used to int erpret this result as normal/abnormal . [place] 922080-01-23 10:35:00 Test Item Value Reference Range Interpretation Comments Neutrophils # (test code = Neutrophils 4.9 1.5-8.1 #) [facility] CenterXoqabriXNMKBQOJBQ4845-21-48 10:35:00 Test Item Value Reference Range Interpretation Comments Lymphocytes # (test code = Lymphocytes 0.6 1.0-5.5 #) [facility] CenterShgjdcbUPVLDQQERH2095-20-97 10:35:00 Test Item Value Reference Range Interpretation Comments Monocytes # (test code 0.6 See_Comment [Aut omated message] The = Monocytes #) system which generated this result tra nsmitted reference range : <=0.8. The reference r yared was not used to int erpret this result as normal/abnormal . [facility] CenterUfdzoxfRPDKRBQXEH0531-27-46 10:35:00 Test Item Value Reference Range Interpretation Comments Eosinophils # (test code 0.1 See_Comment [A utomated message] The = Eosinophils #) system whic h generated this result tra nsmitted reference range : <=0.5. The reference r yared was not used to int erpret this result as normal/abnormal . [facility]Your[facility] AEHZX2065-20-50 10:35:00 Test Item Value Reference Range Interpretation Comments Phosphorus (test code = Phosphorus) 4.3 2.5-4.5 [facility] [id number] 10:35:00 Test Item Value Reference Range Interpretation Comments Magnesium Lvl (test code = Magnesium 2.0 1.8-2.4 Lvl) [place] 922080-01-23 10:35:00 Test Item Value Reference Range Interpretation Comments WBC (test code = WBC) 6.3 3.7-10.4 [place] 922080-01-23 10:35:00 Test Item Value Reference Range Interpretation Comments RBC (test code = RBC) 2.76 4.70-6.10 [place] 922080-01-23 10:35:00 Test Item Value Reference Range Interpretation Comments Hgb (test code = Hgb) 8.1 14.0-18.0 [facility] CenterTzonqrzLOTBKXPTOM7225-41-34 10:35:00 Test Item Value Reference Range Interpretation Comments Hct (test code = Hct) 23.5 42.0-54.0 [facility] CenterJfnzdzfRBXSRNPWLW5384-79-59 10:35:00 Test Item Value Reference Range Interpretation Comments MCV (test code = MCV) 85.2 80.0-94.0 [facility] CenterQmeoipxDEUZWSOEVZ9890-88-21 10:35:00 Test Item Value Reference Range Interpretation Comments MCH (test code = MCH) 29.2 pg 27.0-31.0 [facility] CenterLpgdpihXFYWKZQHDF7780-11-45 10:35:00 Test Item Value Reference Range Interpretation Comments MCHC (test code = MCHC) 34.3 32.0-36.0 [facility] CenterIwwmdizXZZYNNUPQQ6902-46-70 10:35:00 Test Item Value Reference Range Interpretation Comments RDW (test code = RDW) 14.5 11.5-14.5 [facility] CenterIblhoeeIYUKXKEAFH1119-37-66 10:35:00 Test Item Value Reference Range Interpretation Comments Platelet (test code = Platelet) 188 133-450 [facility] CenterIpqhmmiFCXAOUALEG0887-43-70 10:35:00 Test Item Value Reference Range Interpretation Comments MPV (test code = MPV) 7.0 7.4-10.4 [facility] CenterHrorberUBBEESHUDM2303-50-33 10:35:00 Test Item Value Reference Range Interpretation Comments Segs (test code = Segs) 77.7 45.0-75.0 [facility] CenterXfwmnboNXPFUPNJBP2867-64-66 10:35:00 Test Item Value Reference Range Interpretation Comments Lymphocytes (test code = Lymphocytes) 10.2 20.0-40.0 [facility] CenterZnfeewtJBDNQVECYI0283-81-87 10:35:00 Test Item Value Reference Range Interpretation Comments Monocytes (test code = Monocytes) 10.0 2.0-12.0 [facility] CenterPkbwwznEBYOVEDIJJ7626-64-27 10:35:00 Test Item Value Reference Range Interpretation Comments Eosinophils (test code = 1.7 See_Comment [A utomated message] The Eosinophils) system which ge nerated this result tra nsmitted reference range : <=4.0. The reference r yared was not used to int erpret this result as normal/abnormal . [facility] CenterLwwdiohIPGWKKZPWV3775-12-23 10:35:00 Test Item Value Reference Range Interpretation Comments Basophils (test code = 0.4 See_Comment [Aut omated message] The Basophils) system which ge nerated this result tra nsmitted reference range : <=1.0. The reference r yared was not used to int erpret this result as normal/abnormal . [facility] CenterQwfgeakQQGWVMHIDH1243-22-96 10:35:00 Test Item Value Reference Range Interpretation Comments Neutrophils # (test code = Neutrophils 4.9 1.5-8.1 #) [facility] CenterNvzbkleOXBJEJYTRC8367-27-16 10:35:00 Test Item Value Reference Range Interpretation Comments Lymphocytes # (test code = Lymphocytes 0.6 1.0-5.5 #) [facility] CenterInmmfrsSDFPGHZYMC3480-93-92 10:35:00 Test Item Value Reference Range Interpretation Comments Monocytes # (test code 0.6 See_Comment [Aut omated message] The = Monocytes #) system which generated this result tra nsmitted reference range : <=0.8. The reference r yared was not used to int erpret this result as normal/abnormal . [facility] CenterIiylcxaANQGERCNTB4308-56-95 10:35:00 Test Item Value Reference Range Interpretation Comments Eosinophils # (test code 0.1 See_Comment [A utomated message] The = Eosinophils #) system whic h generated this result tra nsmitted reference range : <=0.5. The reference r yared was not used to int erpret this result as normal/abnormal . [facility]2020-01-22 19:34:00 Test Item Value Reference Range Interpretation Comments Source Respiratory Nasophrngl Swb Panel PCR (test code = *NA*(10/30/19 1:34 PM) Source Respiratory Panel PCR) [facility]2020-01-22 19:34:00 Test Item Value Reference Range Interpretation Comments Influenza A PCR (test Negative *NA*(10/30/19 code = Influenza A PCR) 1:34 PM) [facility]2020-01-22 19:34:00 Test Item Value Reference Range Interpretation Comments Influenza B PCR (test Negative *NA*(10/30/19 code = Influenza B PCR) 1:34 PM) [place] [id number] 19:34:00 Test Item Value Reference Range Interpretation Comments RSV PCR (test code = Positive *ABN*(10/30/19 RSV PCR) 1:34 PM) [id number] 19:34:00 Test Item Value Reference Range Interpretation Comments Source Respiratory Nasophrngl Swb Panel PCR (test code = *NA*(10/30/19 1:34 PM) Source Respiratory Panel PCR) [facility] [id number] 19:34:00 Test Item Value Reference Range Interpretation Comments Influenza A PCR (test Negative *NA*(10/30/19 code = Influenza A PCR) 1:34 PM) [facility] [id number] 19:34:00 Test Item Value Reference Range Interpretation Comments Influenza B PCR (test Negative *NA*(10/30/19 code = Influenza B PCR) 1:34 PM) [facility]2020-01-22 19:34:00 Test Item Value Reference Range Interpretation Comments RSV PCR (test code = Positive *ABN*(10/30/19 RSV PCR) 1:34 PM) [facility] [id number] 19:34:00 Test Item Value Reference Range Interpretation Comments Source Respiratory Nasophrngl Swb Panel PCR (test code = *NA*(10/30/19 1:34 PM) Source Respiratory Panel PCR) [facility] [id number] 19:34:00 Test Item Value Reference Range Interpretation Comments Influenza A PCR (test Negative *NA*(10/30/19 code = Influenza A PCR) 1:34 PM) [facility] [id number] 19:34:00 Test Item Value Reference Range Interpretation Comments Influenza B PCR (test Negative *NA*(10/30/19 code = Influenza B PCR) 1:34 PM) [facility] [id number] 19:34:00 Test Item Value Reference Range Interpretation Comments RSV PCR (test code = Positive *ABN*(10/30/19 RSV PCR) 1:34 PM) [facility] [id number] 19:34:00 Test Item Value Reference Range Interpretation Comments Source Respiratory Nasophrngl Swb Panel PCR (test code = *NA*(10/30/19 1:34 PM) Source Respiratory Panel PCR) [facility] [id number] 19:34:00 Test Item Value Reference Range Interpretation Comments Influenza A PCR (test Negative *NA*(10/30/19 code = Influenza A PCR) 1:34 PM) [facility] [id number] 19:34:00 Test Item Value Reference Range Interpretation Comments Influenza B PCR (test Negative *NA*(10/30/19 code = Influenza B PCR) 1:34 PM) [facility] [id number] 19:34:00 Test Item Value Reference Range Interpretation Comments RSV PCR (test code = Positive *ABN*(10/30/19 RSV PCR) 1:34 PM) [facility]USC:PT:ISOLATE:ORDQN:[id number] 18:00:00 Test Item Value Reference Range Interpretation Comments Gram Stain Report Few WBC's No Organisms (test code = Gram Seen Stain Report) [facility]:PT:ISOLATE:ORDQN:[id number] 18:00:00 Test Item Value Reference Range Interpretation Comments Culture: Few Pseudomonas putida Aspirate/Body Growth In Subculture Broth Fluid/Tissue (test Only Enterococcus Species code = Culture: Aspirate/Body Fluid/Tissue) [facility]:PT:ISOLATE:ORDQN:[id number] 18:00:00 Test Item Value Reference Range Interpretation Comments Enterococcus Species Enterococcus Species (test code = Enterococcus Species) [facility]:PT:ISOLATE:ORDQN:[id number] 18:00:00 Test Item Value Reference Range Interpretation Comments Pseudomonas putida (test Pseudomonas putida code = Pseudomonas putida) [facility]:PT:ISOLATE:ORDQN:[id number] 18:00:00 Test Item Value Reference Range Interpretation Comments Gram Stain Report Few WBC's No Organisms (test code = Gram Seen Stain Report) [facility]:PT:ISOLATE:ORDQN:[id number] 18:00:00 Test Item Value Reference Range Interpretation Comments Culture: Few Pseudomonas putida Aspirate/Body Growth In Subculture Broth Fluid/Tissue (test Only Enterococcus Species code = Culture: Aspirate/Body Fluid/Tissue) [facility]:IS[facility]ATE:ORDQN:[id number] 18:00:00 Test Item Value Reference Range Interpretation Comments Enterococcus Species Enterococcus Species (test code = Enterococcus Species) [facility]ORDQN:[id number] 18:00:00 Test Item Value Reference Range Interpretation Comments Pseudomonas putida (test Pseudomonas putida code = Pseudomonas putida) [facility]PT:ISOLATE:ORDQN:[id number] 18:00:00 Test Item Value Reference Range Interpretation Comments Gram Stain Report Few WBC's No Organisms (test code = Gram Seen Stain Report) [facility]PT:ISOLATE:ORDQN:[id number] 18:00:00 Test Item Value Reference Range Interpretation Comments Culture: Few Pseudomonas putida Aspirate/Body Growth In Subculture Broth Fluid/Tissue (test Only Enterococcus Species code = Culture: Aspirate/Body Fluid/Tissue) [facility]PT:ISOLATE:ORDQN:[id number] 18:00:00 Test Item Value Reference Range Interpretation Comments Enterococcus Species Enterococcus Species (test code = Enterococcus Species) [facility]PT:ISOLATE:ORDQN:[id number] 18:00:00 Test Item Value Reference Range Interpretation Comments Pseudomonas putida (test Pseudomonas putida code = Pseudomonas putida) [facility]:ISOLATE:ORDQN:[id number] 18:00:00 Test Item Value Reference Range Interpretation Comments Gram Stain Report Few WBC's No Organisms (test code = Gram Seen Stain Report) [facility]PT:ISOLATE:ORDQN:[id number] 18:00:00 Test Item Value Reference Range Interpretation Comments Culture: Few Pseudomonas putida Aspirate/Body Growth In Subculture Broth Fluid/Tissue (test Only Enterococcus Species code = Culture: Aspirate/Body Fluid/Tissue) [facility]PT:ISOLATE:ORDQN:[id number] 18:00:00 Test Item Value Reference Range Interpretation Comments Enterococcus Species Enterococcus Species (test code = Enterococcus Species) [facility]PT:ISOLATE:ORDQN:[id number] 18:00:00 Test Item Value Reference Range Interpretation Comments Pseudomonas putida (test Pseudomonas putida code = Pseudomonas putida) [facility]2020-01-22 17:21:00 Test Item Value Reference Range Interpretation Comments Lactic Acid Lvl (test code = Lactic 0.6 0.5-2.2 Acid Lvl) [facility]2020-01-22 17:21:00 Test Item Value Reference Range Interpretation Comments Lactic Acid Lvl (test code = Lactic 0.6 0.5-2.2 Acid Lvl) [place] [id number] 17:21:00 Test Item Value Reference Range Interpretation Comments Lactic Acid Lvl (test code = Lactic 0.6 0.5-2.2 Acid Lvl) [facility]2020-01-22 17:21:00 Test Item Value Reference Range Interpretation Comments Lactic Acid Lvl (test code = Lactic 0.6 0.5-2.2 Acid Lvl) [facility]2020-01-22 10:56:00 Test Item Value Reference Range Interpretation Comments Magnesium Lvl (test code = Magnesium 2.1 1.8-2.4 Lvl) [facility]2020-01-22 10:56:00 Test Item Value Reference Range Interpretation Comments Phosphorus (test code = Phosphorus) 4.5 2.5-4.5 [facility] [id number] 10:56:00 Test Item Value Reference Range Interpretation Comments WBC (test code = WBC) 6.7 3.7-10.4 [facility] C[id number] 10:56:00 Test Item Value Reference Range Interpretation Comments RBC (test code = RBC) 2.47 4.70-6.10 [place] 922080-01-22 10:56:00 Test Item Value Reference Range Interpretation Comments Hgb (test code = Hgb) 7.2 14.0-18.0 [place] 922080-01-22 10:56:00 Test Item Value Reference Range Interpretation Comments Hct (test code = Hct) 21.1 42.0-54.0 [facility] CenterErgdghmQDEQQUQUKX2603-28-08 10:56:00 Test Item Value Reference Range Interpretation Comments MCV (test code = MCV) 85.2 80.0-94.0 [place] 922080-01-22 10:56:00 Test Item Value Reference Range Interpretation Comments MCH (test code = MCH) 28.9 pg 27.0-31.0 [place] 922080-01-22 10:56:00 Test Item Value Reference Range Interpretation Comments MCHC (test code = MCHC) 34.0 32.0-36.0 [place] 922080-01-22 10:56:00 Test Item Value Reference Range Interpretation Comments RDW (test code = RDW) 14.6 11.5-14.5 [place] 922080-01-22 10:56:00 Test Item Value Reference Range Interpretation Comments Platelet (test code = Platelet) 171 133-450 [place] 922080-01-22 10:56:00 Test Item Value Reference Range Interpretation Comments MPV (test code = MPV) 7.2 7.4-10.4 [place] 922080-01-22 10:56:00 Test Item Value Reference Range Interpretation Comments Segs (test code = Segs) 87.8 45.0-75.0 [place] 922080-01-22 10:56:00 Test Item Value Reference Range Interpretation Comments Lymphocytes (test code = Lymphocytes) 3.9 20.0-40.0 [place] [address]-01-22 10:56:00 Test Item Value Reference Range Interpretation Comments Monocytes (test code = Monocytes) 6.8 2.0-12.0 [place] [address]-01-22 10:56:00 Test Item Value Reference Range Interpretation Comments Eosinophils (test code = 1.1 See_Comment [A utomated message] The Eosinophils) system which ge nerated this result tra nsmitted reference range : <=4.0. The reference r yared was not used to int erpret this result as normal/abnormal . [place] 922080-01-22 10:56:00 Test Item Value Reference Range Interpretation Comments Basophils (test code = 0.4 See_Comment [Aut omated message] The Basophils) system which ge nerated this result tra nsmitted reference range : <=1.0. The reference r yared was not used to int erpret this result as normal/abnormal . [place] 922080-01-22 10:56:00 Test Item Value Reference Range Interpretation Comments Neutrophils # (test code = Neutrophils 5.9 1.5-8.1 #) [facility] CenterVngcezvGCFUHUWVKT8472-03-58 10:56:00 Test Item Value Reference Range Interpretation Comments Lymphocytes # (test code = Lymphocytes 0.3 1.0-5.5 #) [facility] CenterSelhlzuELGKRBHWVS7281-98-96 10:56:00 Test Item Value Reference Range Interpretation Comments Monocytes # (test code 0.5 See_Comment [Aut omated message] The = Monocytes #) system which generated this result tra nsmitted reference range : <=0.8. The reference r yared was not used to int erpret this result as normal/abnormal . [facility] CenterVwvlundUCVLPFDROT3211-54-83 10:56:00 Test Item Value Reference Range Interpretation Comments Eosinophils # (test code 0.1 See_Comment [A utomated message] The = Eosinophils #) system whic h generated this result tra nsmitted reference range : <=0.5. The reference r yared was not used to int erpret this result as normal/abnormal . [facility]2020-01-22 10:56:00 Test Item Value Reference Range Interpretation Comments Magnesium Lvl (test code = Magnesium 2.1 1.8-2.4 Lvl) [place] 124950-01-22 10:56:00 Test Item Value Reference Range Interpretation Comments Phosphorus (test code = Phosphorus) 4.5 2.5-4.5 [place] 922080-01-22 10:56:00 Test Item Value Reference Range Interpretation Comments WBC (test code = WBC) 6.7 3.7-10.4 [place] 922080-01-22 10:56:00 Test Item Value Reference Range Interpretation Comments RBC (test code = RBC) 2.47 4.70-6.10 [place] 922080-01-22 10:56:00 Test Item Value Reference Range Interpretation Comments Hgb (test code = Hgb) 7.2 14.0-18.0 [place] 922080-01-22 10:56:00 Test Item Value Reference Range Interpretation Comments Hct (test code = Hct) 21.1 42.0-54.0 [facility] CenterPlumdjjKZEWPBJRKK2564-18-55 10:56:00 Test Item Value Reference Range Interpretation Comments MCV (test code = MCV) 85.2 80.0-94.0 [facility] CenterUmrmqjeGRIJNDDOZX5747-94-06 10:56:00 Test Item Value Reference Range Interpretation Comments MCH (test code = MCH) 28.9 pg 27.0-31.0 [facility] CenterEnqixndHCIZUBNEKI9414-54-66 10:56:00 Test Item Value Reference Range Interpretation Comments MCHC (test code = MCHC) 34.0 32.0-36.0 [facility] CenterJrefuciPVTAIYNTHN7204-71-94 10:56:00 Test Item Value Reference Range Interpretation Comments RDW (test code = RDW) 14.6 11.5-14.5 [facility] CenterUsiydotEBBTMWNMQJ6630-25-29 10:56:00 Test Item Value Reference Range Interpretation Comments Platelet (test code = Platelet) 171 133-450 [facility] CenterSlrtioiSPSNSOUAZX3731-91-74 10:56:00 Test Item Value Reference Range Interpretation Comments MPV (test code = MPV) 7.2 7.4-10.4 [facility] CenterUxpzcwgTNMRSLFNFB5498-65-20 10:56:00 Test Item Value Reference Range Interpretation Comments Segs (test code = Segs) 87.8 45.0-75.0 [facility] CenterWdhopzgYNJTQHHCCH3649-86-85 10:56:00 Test Item Value Reference Range Interpretation Comments Lymphocytes (test code = Lymphocytes) 3.9 20.0-40.0 [place] 922080-01-22 10:56:00 Test Item Value Reference Range Interpretation Comments Monocytes (test code = Monocytes) 6.8 2.0-12.0 [place] 922080-01-22 10:56:00 Test Item Value Reference Range Interpretation Comments Eosinophils (test code = 1.1 See_Comment [A utomated message] The Eosinophils) system which ge nerated this result tra nsmitted reference range : <=4.0. The reference r yared was not used to int erpret this result as normal/abnormal . [facility] CenterIbdhdrkRHBCIBUWUH9531-65-35 10:56:00 Test Item Value Reference Range Interpretation Comments Basophils (test code = 0.4 See_Comment [Aut omated message] The Basophils) system which ge nerated this result tra nsmitted reference range : <=1.0. The reference r yared was not used to int erpret this result as normal/abnormal . [facility] CenterAgcspkxKWSTWEOTGJ7023-59-08 10:56:00 Test Item Value Reference Range Interpretation Comments Neutrophils # (test code = Neutrophils 5.9 1.5-8.1 #) [facility] CenterNgbrxraLKZHXOQQYV3956-58-95 10:56:00 Test Item Value Reference Range Interpretation Comments Lymphocytes # (test code = Lymphocytes 0.3 1.0-5.5 #) [facility] CenterQhleipeAKZDQZDYBB8605-21-02 10:56:00 Test Item Value Reference Range Interpretation Comments Monocytes # (test code 0.5 See_Comment [Aut omated message] The = Monocytes #) system which generated this result tra nsmitted reference range : <=0.8. The reference r yared was not used to int erpret this result as normal/abnormal . [facility] CenterOviqquyVWJASSZTYE9051-31-21 10:56:00 Test Item Value Reference Range Interpretation Comments Eosinophils # (test code 0.1 See_Comment [A utomated message] The = Eosinophils #) system whic h generated this result tra nsmitted reference range : <=0.5. The reference r yared was not used to int erpret this result as normal/abnormal . [facility] [id number] 10:56:00 Test Item Value Reference Range Interpretation Comments Magnesium Lvl (test code = Magnesium 2.1 1.8-2.4 Lvl) [facility] FDKZY2727-23-91 10:56:00 Test Item Value Reference Range Interpretation Comments Phosphorus (test code = Phosphorus) 4.5 2.5-4.5 [place] 922080-01-22 10:56:00 Test Item Value Reference Range Interpretation Comments WBC (test code = WBC) 6.7 3.7-10.4 [place] 922080-01-22 10:56:00 Test Item Value Reference Range Interpretation Comments RBC (test code = RBC) 2.47 4.70-6.10 [place] 922080-01-22 10:56:00 Test Item Value Reference Range Interpretation Comments Hgb (test code = Hgb) 7.2 14.0-18.0 [place] 922080-01-22 10:56:00 Test Item Value Reference Range Interpretation Comments Hct (test code = Hct) 21.1 42.0-54.0 [facility] CenterQjjoiqyZLVEXBOOVV6425-46-27 10:56:00 Test Item Value Reference Range Interpretation Comments MCV (test code = MCV) 85.2 80.0-94.0 [facility] CenterQkerepqGUVKFTZUEW0440-74-62 10:56:00 Test Item Value Reference Range Interpretation Comments MCH (test code = MCH) 28.9 pg 27.0-31.0 [facility] CenterEhedpeyAZRXAXTCWK6368-31-91 10:56:00 Test Item Value Reference Range Interpretation Comments MCHC (test code = MCHC) 34.0 32.0-36.0 [facility] CenterRtpgvcuGCTBXLTQAQ7380-92-73 10:56:00 Test Item Value Reference Range Interpretation Comments RDW (test code = RDW) 14.6 11.5-14.5 [facility] CenterIqcajrbXHKLIBCXJR7141-99-94 10:56:00 Test Item Value Reference Range Interpretation Comments Platelet (test code = Platelet) 171 133-450 [facility] CenterTtfthvoDGEZDSDJNB2596-42-93 10:56:00 Test Item Value Reference Range Interpretation Comments MPV (test code = MPV) 7.2 7.4-10.4 [facility] CenterUfobcdpECJYEFMGPY9463-77-72 10:56:00 Test Item Value Reference Range Interpretation Comments Segs (test code = Segs) 87.8 45.0-75.0 [facility] CenterXceoefkTQMOIQNXQO4541-70-53 10:56:00 Test Item Value Reference Range Interpretation Comments Lymphocytes (test code = Lymphocytes) 3.9 20.0-40.0 [facility] CenterZergbbbDAHVWGQVVS6822-17-96 10:56:00 Test Item Value Reference Range Interpretation Comments Monocytes (test code = Monocytes) 6.8 2.0-12.0 [facility] CenterPmqzmmxLCPGMVQSAS3490-03-48 10:56:00 Test Item Value Reference Range Interpretation Comments Eosinophils (test code = 1.1 See_Comment [A utomated message] The Eosinophils) system which ge nerated this result tra nsmitted reference range : <=4.0. The reference r yared was not used to int erpret this result as normal/abnormal . [facility] CenterExjjrjmRAEKEDUOJL0603-78-35 10:56:00 Test Item Value Reference Range Interpretation Comments Basophils (test code = 0.4 See_Comment [Aut omated message] The Basophils) system which ge nerated this result tra nsmitted reference range : <=1.0. The reference r yared was not used to int erpret this result as normal/abnormal . [facility] CenterXkuogjfIFLYDOJYAU8238-63-70 10:56:00 Test Item Value Reference Range Interpretation Comments Neutrophils # (test code = Neutrophils 5.9 1.5-8.1 #) [facility] CenterXpaiferUUJUWLLIAS7331-69-34 10:56:00 Test Item Value Reference Range Interpretation Comments Lymphocytes # (test code = Lymphocytes 0.3 1.0-5.5 #) [facility] CenterPoxzenhOQCVJRDUFB6166-38-26 10:56:00 Test Item Value Reference Range Interpretation Comments Monocytes # (test code 0.5 See_Comment [Aut omated message] The = Monocytes #) system which generated this result tra nsmitted reference range : <=0.8. The reference r yared was not used to int erpret this result as normal/abnormal . [facility] CenterCgibxpiNPBBXGCURM6489-97-40 10:56:00 Test Item Value Reference Range Interpretation Comments Eosinophils # (test code 0.1 See_Comment [A utomated message] The = Eosinophils #) system whic h generated this result tra nsmitted reference range : <=0.5. The reference r yared was not used to int erpret this result as normal/abnormal . [facility]Your[facility] NCWNN1446-57-67 10:56:00 Test Item Value Reference Range Interpretation Comments Magnesium Lvl (test code = Magnesium 2.1 1.8-2.4 Lvl) [facility] [id number] 10:56:00 Test Item Value Reference Range Interpretation Comments Phosphorus (test code = Phosphorus) 4.5 2.5-4.5 [place] 922080-01-22 10:56:00 Test Item Value Reference Range Interpretation Comments WBC (test code = WBC) 6.7 3.7-10.4 [facility] CenterUwwmljyVBQQKQHVEM3957-54-72 10:56:00 Test Item Value Reference Range Interpretation Comments RBC (test code = RBC) 2.47 4.70-6.10 [place] 922080-01-22 10:56:00 Test Item Value Reference Range Interpretation Comments Hgb (test code = Hgb) 7.2 14.0-18.0 [facility] CenterElcoqwaZPFRISMMQP5423-43-92 10:56:00 Test Item Value Reference Range Interpretation Comments Hct (test code = Hct) 21.1 42.0-54.0 [facility] CenterRruamepQUEDKHACAN2101-43-99 10:56:00 Test Item Value Reference Range Interpretation Comments MCV (test code = MCV) 85.2 80.0-94.0 [facility] CenterMcsdjpzMDDILVDEEO3192-57-11 10:56:00 Test Item Value Reference Range Interpretation Comments MCH (test code = MCH) 28.9 pg 27.0-31.0 [facility] CenterYglfzcdINKOUEDROF5667-19-83 10:56:00 Test Item Value Reference Range Interpretation Comments MCHC (test code = MCHC) 34.0 32.0-36.0 [facility] CenterAxbtmjqGDDWJLDMFG7249-38-77 10:56:00 Test Item Value Reference Range Interpretation Comments RDW (test code = RDW) 14.6 11.5-14.5 [facility] CenterFrhnpgvBYLTIIEAZK7703-33-26 10:56:00 Test Item Value Reference Range Interpretation Comments Platelet (test code = Platelet) 171 133-450 [facility] CenterJyhgdagTSASWRKPLQ9088-60-89 10:56:00 Test Item Value Reference Range Interpretation Comments MPV (test code = MPV) 7.2 7.4-10.4 [facility] CenterBkrftgiSMBHIJKONZ2961-08-16 10:56:00 Test Item Value Reference Range Interpretation Comments Segs (test code = Segs) 87.8 45.0-75.0 [facility] CenterAoctzasYPUPFFHVLL1132-56-93 10:56:00 Test Item Value Reference Range Interpretation Comments Lymphocytes (test code = Lymphocytes) 3.9 20.0-40.0 [place] 922080-01-22 10:56:00 Test Item Value Reference Range Interpretation Comments Monocytes (test code = Monocytes) 6.8 2.0-12.0 [facility] CenterTlhfplnHKITHVPGSB1836-24-34 10:56:00 Test Item Value Reference Range Interpretation Comments Eosinophils (test code = 1.1 See_Comment [A utomated message] The Eosinophils) system which ge nerated this result tra nsmitted reference range : <=4.0. The reference r yared was not used to int erpret this result as normal/abnormal . [place] 922080-01-22 10:56:00 Test Item Value Reference Range Interpretation Comments Basophils (test code = 0.4 See_Comment [Aut omated message] The Basophils) system which ge nerated this result tra nsmitted reference range : <=1.0. The reference r yared was not used to int erpret this result as normal/abnormal . [facility] CenterRkdbkmrMPVXTYZCQZ4825-51-08 10:56:00 Test Item Value Reference Range Interpretation Comments Neutrophils # (test code = Neutrophils 5.9 1.5-8.1 #) [facility] CenterRvunndgACKQFZUAAD7013-33-04 10:56:00 Test Item Value Reference Range Interpretation Comments Lymphocytes # (test code = Lymphocytes 0.3 1.0-5.5 #) [facility] CenterAybzxxuUPGRTNYKAP2246-14-73 10:56:00 Test Item Value Reference Range Interpretation Comments Monocytes # (test code 0.5 See_Comment [Aut omated message] The = Monocytes #) system which generated this result tra nsmitted reference range : <=0.8. The reference r yared was not used to int erpret this result as normal/abnormal . [facility] CenterEzijsfvZREMDWKPDU1836-64-37 10:56:00 Test Item Value Reference Range Interpretation Comments Eosinophils # (test code 0.1 See_Comment [A utomated message] The = Eosinophils #) system whic h generated this result tra nsmitted reference range : <=0.5. The reference r yared was not used to int erpret this result as normal/abnormal . [facility]Pee[facility] [id number] 22:52:00 Test Item Value Reference Range Interpretation Comments Magnesium Lvl (test code = Magnesium 2.2 1.8-2.4 Lvl) [facility] HospitalCourseloadZACHARY [facility] [id number] 22:52:00 Test Item Value Reference Range Interpretation Comments Phosphorus (test code = Phosphorus) 5.8 2.5-4.5 [facility]PeeP [facility] [id number] 22:52:00 Test Item Value Reference Range Interpretation Comments Magnesium Lvl (test code = Magnesium 2.2 1.8-2.4 Lvl) [facility] HospitalCourseloadZACHARY [facility]LE [id number] 22:52:00 Test Item Value Reference Range Interpretation Comments Phosphorus (test code = Phosphorus) 5.8 2.5-4.5 [facility]PeeP [facility] [id number] 22:52:00 Test Item Value Reference Range Interpretation Comments Magnesium Lvl (test code = Magnesium 2.2 1.8-2.4 Lvl) [facility]Your[facility] [id number] 22:52:00 Test Item Value Reference Range Interpretation Comments Phosphorus (test code = Phosphorus) 5.8 2.5-4.5 [facility] [id number] 22:52:00 Test Item Value Reference Range Interpretation Comments Magnesium Lvl (test code = Magnesium 2.2 1.8-2.4 Lvl) [facility] [id number] 22:52:00 Test Item Value Reference Range Interpretation Comments Phosphorus (test code = Phosphorus) 5.8 2.5-4.5 [facility] HospitalWeather[facility] [id number] 10:47:00 Test Item Value Reference Range Interpretation Comments Troponin-I (test code 0.02 See_Comment [Auto mated message] The = Troponin-I) system which g enerated this result transmit emreson reference range : <=0.40. The reference r yared was not used to interpr et this result as erinn l/abnormal. [facility] [id number] 10:47:00 Test Item Value Reference Range Interpretation Comments Troponin-I (test code 0.02 See_Comment [Auto mated message] The = Troponin-I) system which g enerated this result transmit emerson reference range : <=0.40. The reference r yared was not used to interpr et this result as erinn l/abnormal. [facility] [id number] 10:47:00 Test Item Value Reference Range Interpretation Comments Troponin-I (test code 0.02 See_Comment [Auto mated message] The = Troponin-I) system which g enerated this result transmit emerson reference range : <=0.40. The reference r yared was not used to interpr et this result as erinn l/abnormal. [facility] Hos[id number] 10:47:00 Test Item Value Reference Range Interpretation Comments Troponin-I (test code 0.02 See_Comment [Auto mated message] The = Troponin-I) system which g enerated this result transmit emerson reference range : <=0.40. The reference r yared was not used to interpr et this result as erinn l/abnormal. [facility] [employer]2020-01-21 07:19:00 Test Item Value Reference Range Interpretation Comments Troponin-I (test code 0.02 See_Comment [Auto mated message] The = Troponin-I) system which g enerated this result transmit emerson reference range : <=0.40. The reference r yared was not used to interpr et this result as erinn l/abnormal. [facility] Test Item Value Reference Range Interpretation Comments Troponin-I (test code 0.02 See_Comment [Auto mated message] The = Troponin-I) system which g enerated this result transmit emerson reference range : <=0.40. The reference r yared was not used to interpr et this result as erinn l/abnormal. [facility] [employer]2020-01-21 07:19:00 Test Item Value Reference Range Interpretation Comments Troponin-I (test code 0.02 See_Comment [Auto mated message] The = Troponin-I) system which g enerated this result transmit emerson reference range : <=0.40. The reference r yared was not used to interpr et this result as erinn l/abnormal. [facility] [employer]2020-01-21 07:19:00 Test Item Value Reference Range Interpretation Comments Troponin-I (test code 0.02 See_Comment [Auto mated message] The = Troponin-I) system which g enerated this result transmit emerson reference range : <=0.40. The reference r yared was not used to interpr et this result as erinn l/abnormal. [facility] [employer]2020-01-21 03:06:00 Test Item Value Reference Range Interpretation Comments Troponin-I (test code no gt See_Comment [Auto mated message] The = Troponin-I) system which g enerated this result transmit emerson reference range : <=0.40. The reference r yared was not used to interpr et this result as erinn l/abnormal. [facility] [employer]2020-01-21 03:06:00 Test Item Value Reference Range Interpretation Comments Total Protein (test code = Total 5.5 6.4-8.4 Protein) [facility] [employer]2020-01-21 03:06:00 Test Item Value Reference Range Interpretation Comments Albumin Lvl (test code = Albumin Lvl) 2.3 3.5-5.0 [place] 124950-01-21 03:06:00 Test Item Value Reference Range Interpretation Comments ALT (test code = ALT) 22 See_Comment [Auto mated message] The system which ge nerated this result transmit emerson reference range : <=65. The reference range was not used to interpr et this result as erinn l/abnormal. [place] 124950-01-21 03:06:00 Test Item Value Reference Range Interpretation Comments AST (test code = AST) 50 See_Comment [Auto mated message] The system which ge nerated this result transmit emerson reference range : <=37. The reference range was not used to interpr et this result as erinn l/abnormal. [place] 124950-01-21 03:06:00 Test Item Value Reference Range Interpretation Comments Alk Phos (test code = Alk Phos) 68 39-136 [place] 124950-01-21 03:06:00 Test Item Value Reference Range Interpretation Comments Bili Total (test code = Bili Total) 0.6 0.2-1.3 [place] [address]-01-21 03:06:00 Test Item Value Reference Range Interpretation Comments B/C Ratio (test code = B/C Ratio) 5 1 6-25 [place] [address]-01-21 03:06:00 Test Item Value Reference Range Interpretation Comments Globulin (test code = Globulin) 3.2 2.7-4.2 [place] 124950-01-21 03:06:00 Test Item Value Reference Range Interpretation Comments A/G Ratio (test code = A/G Ratio) 0.7 1 0.7-1.6 [place] 922080-01-21 03:06:00 Test Item Value Reference Range Interpretation Comments Plt Morph (test code = Normal (10/28/19 9:06 Plt Morph) PM) [place] 922080-01-21 03:06:00 Test Item Value Reference Range Interpretation Comments Basophils # (test code 0.1 See_Comment [Aut omated message] The = Basophils #) system which generated this result tra nsmitted reference range : <=0.2. The reference r yared was not used to int erpret this result as normal/abnormal . [facility] [employer]ison[employer]CARDIAC [id number] 03:06:00 Test Item Value Reference Range Interpretation Comments Troponin-I (test code no gt See_Comment [Auto mated message] The = Troponin-I) system which g enerated this result transmit emerson reference range : <=0.40. The reference r yared was not used to interpr et this result as erinn l/abnormal. [facility] [employer] [id number] 03:06:00 Test Item Value Reference Range Interpretation Comments Total Protein (test code = Total 5.5 6.4-8.4 Protein) [facility] [employer] [id number] 03:06:00 Test Item Value Reference Range Interpretation Comments Albumin Lvl (test code = Albumin Lvl) 2.3 3.5-5.0 [facility] [employer] [id number] 03:06:00 Test Item Value Reference Range Interpretation Comments ALT (test code = ALT) 22 See_Comment [Auto mated message] The system which ge nerated this result transmit emerson reference range : <=65. The reference range was not used to interpr et this result as erinn l/abnormal. [facility] [employer] [id number] 03:06:00 Test Item Value Reference Range Interpretation Comments AST (test code = AST) 50 See_Comment [Auto mated message] The system which ge nerated this result transmit emerson reference range : <=37. The reference range was not used to interpr et this result as erinn l/abnormal. [facility] [employer] [id number] 03:06:00 Test Item Value Reference Range Interpretation Comments Alk Phos (test code = Alk Phos) 68 39-136 [facility] [employer] [id number] 03:06:00 Test Item Value Reference Range Interpretation Comments Bili Total (test code = Bili Total) 0.6 0.2-1.3 [facility] [employer] [id number] 03:06:00 Test Item Value Reference Range Interpretation Comments B/C Ratio (test code = B/C Ratio) 5 1 6-25 [facility] [employer] [id number] 03:06:00 Test Item Value Reference Range Interpretation Comments Globulin (test code = Globulin) 3.2 2.7-4.2 [facility] [employer]2020-01-21 03:06:00 Test Item Value Reference Range Interpretation Comments A/G Ratio (test code = A/G Ratio) 0.7 1 0.7-1.6 [id number] 03:06:00 Test Item Value Reference Range Interpretation Comments Plt Morph (test code = Normal (10/28/19 9:06 Plt Morph) PM) [facility] HospitalXnihuptFRASMSMNBM6582-21-04 03:06:00 Test Item Value Reference Range Interpretation Comments Basophils # (test code 0.1 See_Comment [Aut omated message] The = Basophils #) system which generated this result tra nsmitted reference range : <=0.2. The reference r yared was not used to int erpret this result as normal/abnormal . [facility] [id number] 03:06:00 Test Item Value Reference Range Interpretation Comments Troponin-I (test code no gt See_Comment [Auto mated message] The = Troponin-I) system which g enerated this result transmit emerson reference range : <=0.40. The reference r yared was not used to interpr et this result as erinn l/abnormal. [facility] [id number] 03:06:00 Test Item Value Reference Range Interpretation Comments Total Protein (test code = Total 5.5 6.4-8.4 Protein) [facility]Your[facility] [id number] 03:06:00 Test Item Value Reference Range Interpretation Comments Albumin Lvl (test code = Albumin Lvl) 2.3 3.5-5.0 [facility] [id number] 03:06:00 Test Item Value Reference Range Interpretation Comments ALT (test code = ALT) 22 See_Comment [Auto mated message] The system which ge nerated this result transmit emerson reference range : <=65. The reference range was not used to interpr et this result as erinn l/abnormal. [facility] [id number] 03:06:00 Test Item Value Reference Range Interpretation Comments AST (test code = AST) 50 See_Comment [Auto mated message] The system which ge nerated this result transmit emerson reference range : <=37. The reference range was not used to interpr et this result as erinn l/abnormal. [facility] [employer] [id number] 03:06:00 Test Item Value Reference Range Interpretation Comments Alk Phos (test code = Alk Phos) 68 39-136 [facility] [id number] 03:06:00 Test Item Value Reference Range Interpretation Comments Bili Total (test code = Bili Total) 0.6 0.2-1.3 [facility] [id number] 03:06:00 Test Item Value Reference Range Interpretation Comments B/C Ratio (test code = B/C Ratio) 5 1 6-25 [facility] [id number] 03:06:00 Test Item Value Reference Range Interpretation Comments Globulin (test code = Globulin) 3.2 2.7-4.2 [facility] [id number] 03:06:00 Test Item Value Reference Range Interpretation Comments A/G Ratio (test code = A/G Ratio) 0.7 1 0.7-1.6 [facility] HospitalTwkdntyKJSXZZPIHB3516-20-21 03:06:00 Test Item Value Reference Range Interpretation Comments Plt Morph (test code = Normal (10/28/19 9:06 Plt Morph) PM) [facility] [id number] 03:06:00 Test Item Value Reference Range Interpretation Comments Basophils # (test code 0.1 See_Comment [Aut omated message] The = Basophils #) system which generated this result tra nsmitted reference range : <=0.2. The reference r yared was not used to int erpret this result as normal/abnormal . [facility] [id number] 03:06:00 Test Item Value Reference Range Interpretation Comments Troponin-I (test code no gt See_Comment [Auto mated message] The = Troponin-I) system which g enerated this result transmit emerson reference range : <=0.40. The reference r yared was not used to interpr et this result as erinn l/abnormal. [facility]Your[facility] [id number] 03:06:00 Test Item Value Reference Range Interpretation Comments Total Protein (test code = Total 5.5 6.4-8.4 Protein) [facility] [id number] 03:06:00 Test Item Value Reference Range Interpretation Comments Albumin Lvl (test code = Albumin Lvl) 2.3 3.5-5.0 [facility] [id number] 03:06:00 Test Item Value Reference Range Interpretation Comments ALT (test code = ALT) 22 See_Comment [Auto mated message] The system which ge nerated this result transmit emerson reference range : <=65. The reference range was not used to interpr et this result as erinn l/abnormal. [facility] [id number] 03:06:00 Test Item Value Reference Range Interpretation Comments AST (test code = AST) 50 See_Comment [Auto mated message] The system which ge nerated this result transmit emerson reference range : <=37. The reference range was not used to interpr et this result as erinn l/abnormal. [facility] [employer] [id number] 03:06:00 Test Item Value Reference Range Interpretation Comments Alk Phos (test code = Alk Phos) 68 39-136 [facility] [id number] 03:06:00 Test Item Value Reference Range Interpretation Comments Bili Total (test code = Bili Total) 0.6 0.2-1.3 [facility] [id number] 03:06:00 Test Item Value Reference Range Interpretation Comments B/C Ratio (test code = B/C Ratio) 5 1 6-25 [facility] [id number] 03:06:00 Test Item Value Reference Range Interpretation Comments Globulin (test code = Globulin) 3.2 2.7-4.2 [facility] [id number] 03:06:00 Test Item Value Reference Range Interpretation Comments A/G Ratio (test code = A/G Ratio) 0.7 1 0.7-1.6 [facility] Ho[id number] 03:06:00 Test Item Value Reference Range Interpretation Comments Plt Morph (test code = Normal (10/28/19 9:06 Plt Morph) PM) [facility] HospitalQdvixhvLDKORJZIZY3871-64-00 03:06:00 Test Item Value Reference Range Interpretation Comments Basophils # (test code 0.1 See_Comment [Aut omated message] The = Basophils #) system which generated this result tra nsmitted reference range : <=0.2. The reference r yared was not used to int erpret this result as normal/abnormal . [facility] [employer] [id number] 10:56:00 Test Item Value Reference Range Interpretation Comments Glucose Lvl (test code = Glucose Lvl) 93 70-99 [facility]2019-11-12 10:56:00 Test Item Value Reference Range Interpretation Comments BUN (test code = BUN) 26 7-22 [facility]2019-11-12 10:56:00 Test Item Value Reference Range Interpretation Comments Creatinine Lvl (test code = Creatinine 7.85 0.50-1.40 Lvl) [facility]2019-11-12 10:56:00 Test Item Value Reference Range Interpretation Comments Sodium Lvl (test code = Sodium Lvl) 140 135-145 [facility]2019-11-12 10:56:00 Test Item Value Reference Range Interpretation Comments Potassium Lvl (test code = Potassium 3.7 3.5-5.1 Lvl) [facility]2019-11-12 10:56:00 Test Item Value Reference Range Interpretation Comments Chloride Lvl (test code = Chloride Lvl) 104 95-109 [facility]2019-11-12 10:56:00 Test Item Value Reference Range Interpretation Comments CO2 (test code = CO2) 25 24-32 [facility]2019-11-12 10:56:00 Test Item Value Reference Range Interpretation Comments Calcium Lvl (test code = Calcium Lvl) 9.2 8.5-10.5 [facility]2019-11-12 10:56:00 Test Item Value Reference Range Interpretation Comments eGFR (test code = eGFR) 7 [facility]2019-11-12 10:56:00 Test Item Value Reference Range Interpretation Comments AGAP (test code = AGAP) 14.7 10.0-20.0 [facility] [id number] 10:56:00 Test Item Value Reference Range Interpretation Comments WBC (test code = WBC) 8.6 3.7-10.4 [facility] CenterIyftagnMOXKNCXTFP4491-39-19 10:56:00 Test Item Value Reference Range Interpretation Comments RBC (test code = RBC) 3.37 4.70-6.10 [facility] CenterBrrzvbfTDSFFHTCEK4903-76-33 10:56:00 Test Item Value Reference Range Interpretation Comments Hgb (test code = Hgb) 10.2 14.0-18.0 [place] [id number] 10:56:00 Test Item Value Reference Range Interpretation Comments Hct (test code = Hct) 29.9 42.0-54.0 [facility] CenterBaubpigPLYZRGLXPK1337-26-09 10:56:00 Test Item Value Reference Range Interpretation Comments MCV (test code = MCV) 88.7 80.0-94.0 [facility] CenterNikcmtdJCGUYCCJFO3234-17-04 10:56:00 Test Item Value Reference Range Interpretation Comments MCH (test code = MCH) 30.1 pg 27.0-31.0 [facility] CenterQdotkojWCNMMUNMUZ2099-05-72 10:56:00 Test Item Value Reference Range Interpretation Comments MCHC (test code = MCHC) 33.9 32.0-36.0 [facility] [id number] 10:56:00 Test Item Value Reference Range Interpretation Comments RDW (test code = RDW) 13.7 11.5-14.5 [facility] CenterGchjwxlGIAHSAWJDD8237-57-23 10:56:00 Test Item Value Reference Range Interpretation Comments Platelet (test code = Platelet) 294 133-450 [facility] CenterOaxbevsZAWLRLTDML7313-79-75 10:56:00 Test Item Value Reference Range Interpretation Comments MPV (test code = MPV) 6.7 7.4-10.4 [facility] CenterYetvwmyWSGFJBNDJH9683-06-93 10:56:00 Test Item Value Reference Range Interpretation Comments Segs (test code = Segs) 79.5 45.0-75.0 [facility] CenterSpbizjaLGFJMZZXEN1377-53-83 10:56:00 Test Item Value Reference Range Interpretation Comments Lymphocytes (test code = Lymphocytes) 12.8 20.0-40.0 [facility] CenterRwzfppwMRCTFCISFG2693-45-36 10:56:00 Test Item Value Reference Range Interpretation Comments Monocytes (test code = Monocytes) 6.3 2.0-12.0 [facility] CenterVkhewryECEFCKEEHI0947-75-55 10:56:00 Test Item Value Reference Range Interpretation Comments Eosinophils (test code = 0.6 See_Comment [A utomated message] The Eosinophils) system which ge nerated this result tra nsmitted reference range : <=4.0. The reference r yared was not used to int erpret this result as normal/abnormal . [facility] CenterWrguhfmYFNJUNEICW2610-45-51 10:56:00 Test Item Value Reference Range Interpretation Comments Basophils (test code = 0.8 See_Comment [Aut omated message] The Basophils) system which ge nerated this result tra nsmitted reference range : <=1.0. The reference r yared was not used to int erpret this result as normal/abnormal . [facility] CenterXkzjlsyQVRXOLWFRX9948-30-60 10:56:00 Test Item Value Reference Range Interpretation Comments Neutrophils # (test code = Neutrophils 6.8 1.5-8.1 #) [facility] CenterDzwiccnCUTLAUNXDA7485-14-97 10:56:00 Test Item Value Reference Range Interpretation Comments Lymphocytes # (test code = Lymphocytes 1.1 1.0-5.5 #) [facility] CenterHlsogtzSUGQIFQXPA6374-99-80 10:56:00 Test Item Value Reference Range Interpretation Comments Monocytes # (test code 0.5 See_Comment [Aut omated message] The = Monocytes #) system which generated this result tra nsmitted reference range : <=0.8. The reference r yared was not used to int erpret this result as normal/abnormal . [facility] CenterSmkivyaFZRMUWAKHA4702-29-29 10:56:00 Test Item Value Reference Range Interpretation Comments Basophils # (test code 0.1 See_Comment [Aut omated message] The = Basophils #) system which generated this result tra nsmitted reference range : <=0.2. The reference r yared was not used to int erpret this result as normal/abnormal . [facility]2019-11-12 10:56:00 Test Item Value Reference Range Interpretation Comments Glucose Lvl (test code = Glucose Lvl) 93 70-99 [facility]2019-11-12 10:56:00 Test Item Value Reference Range Interpretation Comments BUN (test code = BUN) 26 7-22 [facility]2019-11-12 10:56:00 Test Item Value Reference Range Interpretation Comments Creatinine Lvl (test code = Creatinine 7.85 0.50-1.40 Lvl) [facility]2019-11-12 10:56:00 Test Item Value Reference Range Interpretation Comments Sodium Lvl (test code = Sodium Lvl) 140 135-145 [facility]2019-11-12 10:56:00 Test Item Value Reference Range Interpretation Comments Potassium Lvl (test code = Potassium 3.7 3.5-5.1 Lvl) [facility]2019-11-12 10:56:00 Test Item Value Reference Range Interpretation Comments Chloride Lvl (test code = Chloride Lvl) 104 95-109 [facility]2019-11-12 10:56:00 Test Item Value Reference Range Interpretation Comments CO2 (test code = CO2) 25 24-32 [facility]2019-11-12 10:56:00 Test Item Value Reference Range Interpretation Comments Calcium Lvl (test code = Calcium Lvl) 9.2 8.5-10.5 [facility]2019-11-12 10:56:00 Test Item Value Reference Range Interpretation Comments eGFR (test code = eGFR) 7 [facility]2019-11-12 10:56:00 Test Item Value Reference Range Interpretation Comments AGAP (test code = AGAP) 14.7 10.0-20.0 [facility] CenterLnbboaxUFCQPJAAEG6280-03-11 10:56:00 Test Item Value Reference Range Interpretation Comments WBC (test code = WBC) 8.6 3.7-10.4 [facility] CenterFbzroivHYDEPTBFIQ9685-89-27 10:56:00 Test Item Value Reference Range Interpretation Comments RBC (test code = RBC) 3.37 4.70-6.10 [facility] CenterMptfhnqVVUDAPRNRB9414-25-08 10:56:00 Test Item Value Reference Range Interpretation Comments Hgb (test code = Hgb) 10.2 14.0-18.0 [facility] CenterRszrqaqGAENXPBJWF4827-68-70 10:56:00 Test Item Value Reference Range Interpretation Comments Hct (test code = Hct) 29.9 42.0-54.0 [facility] CenterNralpwoOIYZNPDFJO8877-99-04 10:56:00 Test Item Value Reference Range Interpretation Comments MCV (test code = MCV) 88.7 80.0-94.0 [facility] CenterEjnknstHUBKGXZFYT4842-82-99 10:56:00 Test Item Value Reference Range Interpretation Comments MCH (test code = MCH) 30.1 pg 27.0-31.0 [facility] CenterKumrktqFYRYTUQVZU0957-32-73 10:56:00 Test Item Value Reference Range Interpretation Comments MCHC (test code = MCHC) 33.9 32.0-36.0 [facility] CenterXhrrpfvMSQCIEYXBH1381-32-63 10:56:00 Test Item Value Reference Range Interpretation Comments RDW (test code = RDW) 13.7 11.5-14.5 [facility] CenterKwntdyxMZXMRGPWIT3876-43-16 10:56:00 Test Item Value Reference Range Interpretation Comments Platelet (test code = Platelet) 294 133-450 [facility] CenterOcdtnafIGFTBCMZVY3109-42-31 10:56:00 Test Item Value Reference Range Interpretation Comments MPV (test code = MPV) 6.7 7.4-10.4 [facility] CenterCssryvvPZOFFEQUHX3080-32-48 10:56:00 Test Item Value Reference Range Interpretation Comments Segs (test code = Segs) 79.5 45.0-75.0 [facility] CenterNlfmedbIDMKVJMZEO0585-44-33 10:56:00 Test Item Value Reference Range Interpretation Comments Lymphocytes (test code = Lymphocytes) 12.8 20.0-40.0 [facility] CenterGnraehdRGCJYLVRJO6519-55-54 10:56:00 Test Item Value Reference Range Interpretation Comments Monocytes (test code = Monocytes) 6.3 2.0-12.0 [facility] CenterMjjoosyIVFKXOIXSZ5133-83-17 10:56:00 Test Item Value Reference Range Interpretation Comments Eosinophils (test code = 0.6 See_Comment [A utomated message] The Eosinophils) system which ge nerated this result tra nsmitted reference range : <=4.0. The reference r yared was not used to int erpret this result as normal/abnormal . [facility] CenterDmeijnaJDZGRMPABI5459-04-70 10:56:00 Test Item Value Reference Range Interpretation Comments Basophils (test code = 0.8 See_Comment [Aut omated message] The Basophils) system which ge nerated this result tra nsmitted reference range : <=1.0. The reference r yared was not used to int erpret this result as normal/abnormal . [facility] CenterXcabjcvCWWQJMDDJQ6737-56-55 10:56:00 Test Item Value Reference Range Interpretation Comments Neutrophils # (test code = Neutrophils 6.8 1.5-8.1 #) [facility] CenterQyqujlhXBYIONENDT7100-04-48 10:56:00 Test Item Value Reference Range Interpretation Comments Lymphocytes # (test code = Lymphocytes 1.1 1.0-5.5 #) [facility] CenterMgaypmnODTABAUWMX7593-79-85 10:56:00 Test Item Value Reference Range Interpretation Comments Monocytes # (test code 0.5 See_Comment [Aut omated message] The = Monocytes #) system which generated this result tra nsmitted reference range : <=0.8. The reference r yared was not used to int erpret this result as normal/abnormal . [facility] CenterPhaouofGSOPHNSUYV4447-89-64 10:56:00 Test Item Value Reference Range Interpretation Comments Basophils # (test code 0.1 See_Comment [Aut omated message] The = Basophils #) system which generated this result tra nsmitted reference range : <=0.2. The reference r yared was not used to int erpret this result as normal/abnormal . [facility]2019-11-12 10:56:00 Test Item Value Reference Range Interpretation Comments Glucose Lvl (test code = Glucose Lvl) 93 70-99 [facility]2019-11-12 10:56:00 Test Item Value Reference Range Interpretation Comments BUN (test code = BUN) 26 7-22 [facility]2019-11-12 10:56:00 Test Item Value Reference Range Interpretation Comments Creatinine Lvl (test code = Creatinine 7.85 0.50-1.40 Lvl) [facility]2019-11-12 10:56:00 Test Item Value Reference Range Interpretation Comments Sodium Lvl (test code = Sodium Lvl) 140 135-145 [facility]2019-11-12 10:56:00 Test Item Value Reference Range Interpretation Comments Potassium Lvl (test code = Potassium 3.7 3.5-5.1 Lvl) [facility]2019-11-12 10:56:00 Test Item Value Reference Range Interpretation Comments Chloride Lvl (test code = Chloride Lvl) 104 95-109 [facility]2019-11-12 10:56:00 Test Item Value Reference Range Interpretation Comments CO2 (test code = CO2) 25 24-32 [facility]2019-11-12 10:56:00 Test Item Value Reference Range Interpretation Comments Calcium Lvl (test code = Calcium Lvl) 9.2 8.5-10.5 [facility]2019-11-12 10:56:00 Test Item Value Reference Range Interpretation Comments eGFR (test code = eGFR) 7 [facility]2019-11-12 10:56:00 Test Item Value Reference Range Interpretation Comments AGAP (test code = AGAP) 14.7 10.0-20.0 [facility]StuvvvuJBNCMQQVSK5017-05-45 10:56:00 Test Item Value Reference Range Interpretation Comments WBC (test code = WBC) 8.6 3.7-10.4 [facility] CenterRvclagnVIUXKJACMP7509-43-87 10:56:00 Test Item Value Reference Range Interpretation Comments RBC (test code = RBC) 3.37 4.70-6.10 [facility] CenterRwibjfdEYUAJALDNJ8814-57-42 10:56:00 Test Item Value Reference Range Interpretation Comments Hgb (test code = Hgb) 10.2 14.0-18.0 [facility] CenterKljtleaGLIRSEUMBG4920-87-37 10:56:00 Test Item Value Reference Range Interpretation Comments Hct (test code = Hct) 29.9 42.0-54.0 [facility] CenterZtgqabsQIUFPVFGXV1363-65-85 10:56:00 Test Item Value Reference Range Interpretation Comments MCV (test code = MCV) 88.7 80.0-94.0 [facility] CenterYfpuzhfOCZUDHMWVE5325-07-03 10:56:00 Test Item Value Reference Range Interpretation Comments MCH (test code = MCH) 30.1 pg 27.0-31.0 [facility] CenterBkjeoesMPOSVZNKVC7776-30-71 10:56:00 Test Item Value Reference Range Interpretation Comments MCHC (test code = MCHC) 33.9 32.0-36.0 [facility] CenterNtampwaSXFDDCKFYF7553-08-30 10:56:00 Test Item Value Reference Range Interpretation Comments RDW (test code = RDW) 13.7 11.5-14.5 [facility] CenterCcbchchGQJHCLZYGC1576-13-78 10:56:00 Test Item Value Reference Range Interpretation Comments Platelet (test code = Platelet) 294 133-450 [facility] CenterSjkfbtpACHTXNTUWY1909-41-12 10:56:00 Test Item Value Reference Range Interpretation Comments MPV (test code = MPV) 6.7 7.4-10.4 [facility] CenterCxddgumEILNMFVKXY5757-86-55 10:56:00 Test Item Value Reference Range Interpretation Comments Segs (test code = Segs) 79.5 45.0-75.0 [facility] CenterQuembbiKSJDQKWDKD7896-89-56 10:56:00 Test Item Value Reference Range Interpretation Comments Lymphocytes (test code = Lymphocytes) 12.8 20.0-40.0 [facility] CenterIcifiigZUOIMPBRVU8150-67-94 10:56:00 Test Item Value Reference Range Interpretation Comments Monocytes (test code = Monocytes) 6.3 2.0-12.0 [facility] CenterIpwavjsMJBSSLVJWE1657-49-54 10:56:00 Test Item Value Reference Range Interpretation Comments Eosinophils (test code = 0.6 See_Comment [A utomated message] The Eosinophils) system which ge nerated this result tra nsmitted reference range : <=4.0. The reference r yarde was not used to int erpret this result as normal/abnormal . [facility] CenterRnqjkjeUARQECILUJ0473-73-38 10:56:00 Test Item Value Reference Range Interpretation Comments Basophils (test code = 0.8 See_Comment [Aut omated message] The Basophils) system which ge nerated this result tra nsmitted reference range : <=1.0. The reference r yared was not used to int erpret this result as normal/abnormal . [facility] CenterDcjqewsBNXDMZZJNT2103-66-78 10:56:00 Test Item Value Reference Range Interpretation Comments Neutrophils # (test code = Neutrophils 6.8 1.5-8.1 #) [facility] CenterElvtpwnNERNDQYPQW8502-13-91 10:56:00 Test Item Value Reference Range Interpretation Comments Lymphocytes # (test code = Lymphocytes 1.1 1.0-5.5 #) [facility] CenterPhstqrgMQZYCQGWZZ7395-89-20 10:56:00 Test Item Value Reference Range Interpretation Comments Monocytes # (test code 0.5 See_Comment [Aut omated message] The = Monocytes #) system which generated this result tra nsmitted reference range : <=0.8. The reference r yared was not used to int erpret this result as normal/abnormal . [facility] CenterNonlicaYLQIYYVQFZ8367-40-34 10:56:00 Test Item Value Reference Range Interpretation Comments Basophils # (test code 0.1 See_Comment [Aut omated message] The = Basophils #) system which generated this result tra nsmitted reference range : <=0.2. The reference r yared was not used to int erpret this result as normal/abnormal . [facility]2019-11-12 10:56:00 Test Item Value Reference Range Interpretation Comments Glucose Lvl (test code = Glucose Lvl) 93 70-99 [facility]2019-11-12 10:56:00 Test Item Value Reference Range Interpretation Comments BUN (test code = BUN) 26 7-22 [facility]2019-11-12 10:56:00 Test Item Value Reference Range Interpretation Comments Creatinine Lvl (test code = Creatinine 7.85 0.50-1.40 Lvl) [facility]2019-11-12 10:56:00 Test Item Value Reference Range Interpretation Comments Sodium Lvl (test code = Sodium Lvl) 140 135-145 [facility]2019-11-12 10:56:00 Test Item Value Reference Range Interpretation Comments Potassium Lvl (test code = Potassium 3.7 3.5-5.1 Lvl) [facility]2019-11-12 10:56:00 Test Item Value Reference Range Interpretation Comments Chloride Lvl (test code = Chloride Lvl) 104 95-109 [facility]2019-11-12 10:56:00 Test Item Value Reference Range Interpretation Comments CO2 (test code = CO2) 25 24-32 [facility]2019-11-12 10:56:00 Test Item Value Reference Range Interpretation Comments Calcium Lvl (test code = Calcium Lvl) 9.2 8.5-10.5 [facility]2019-11-12 10:56:00 Test Item Value Reference Range Interpretation Comments eGFR (test code = eGFR) 7 [facility]2019-11-12 10:56:00 Test Item Value Reference Range Interpretation Comments AGAP (test code = AGAP) 14.7 10.0-20.0 [facility] CenterUledkieLCDGDCMIYO5090-44-24 10:56:00 Test Item Value Reference Range Interpretation Comments WBC (test code = WBC) 8.6 3.7-10.4 [facility] CenterOdhruliTTOVUMCMRQ4312-63-90 10:56:00 Test Item Value Reference Range Interpretation Comments RBC (test code = RBC) 3.37 4.70-6.10 [facility] CenterYoissqkNDITXDHQTJ4733-85-81 10:56:00 Test Item Value Reference Range Interpretation Comments Hgb (test code = Hgb) 10.2 14.0-18.0 [facility] CenterOdzgburTHQLFVMPKH5114-81-58 10:56:00 Test Item Value Reference Range Interpretation Comments Hct (test code = Hct) 29.9 42.0-54.0 [place] 101439-11-12 10:56:00 Test Item Value Reference Range Interpretation Comments MCV (test code = MCV) 88.7 80.0-94.0 [facility] CenterQhxmzbxVYZDXCCROC1366-00-22 10:56:00 Test Item Value Reference Range Interpretation Comments MCH (test code = MCH) 30.1 pg 27.0-31.0 [facility] CenterFdtnztsAIGILXUPIM2236-66-22 10:56:00 Test Item Value Reference Range Interpretation Comments MCHC (test code = MCHC) 33.9 32.0-36.0 [facility] CenterUtqduoiEJDIBRQBHB4183-27-17 10:56:00 Test Item Value Reference Range Interpretation Comments RDW (test code = RDW) 13.7 11.5-14.5 [facility] CenterLeyrkfeNHQTYFVZAY0475-36-14 10:56:00 Test Item Value Reference Range Interpretation Comments Platelet (test code = Platelet) 294 133-450 [facility] CenterAfhzhsgUEOTIWNULG9387-59-02 10:56:00 Test Item Value Reference Range Interpretation Comments MPV (test code = MPV) 6.7 7.4-10.4 [facility] CenterQcrnmpyWGZCJKZCTG1021-16-01 10:56:00 Test Item Value Reference Range Interpretation Comments Segs (test code = Segs) 79.5 45.0-75.0 [facility] CenterWnhmaqeAEQYTLJUEM3051-84-37 10:56:00 Test Item Value Reference Range Interpretation Comments Lymphocytes (test code = Lymphocytes) 12.8 20.0-40.0 [facility] CenterYopukaeQZUMKALYXC4285-87-62 10:56:00 Test Item Value Reference Range Interpretation Comments Monocytes (test code = Monocytes) 6.3 2.0-12.0 [facility] CenterLtboxdcFFJCKDKUHJ5818-33-04 10:56:00 Test Item Value Reference Range Interpretation Comments Eosinophils (test code = 0.6 See_Comment [A utomated message] The Eosinophils) system which ge nerated this result tra nsmitted reference range : <=4.0. The reference r yared was not used to int erpret this result as normal/abnormal . [facility] CenterTxmcaloVXDUOTHZDF1997-81-45 10:56:00 Test Item Value Reference Range Interpretation Comments Basophils (test code = 0.8 See_Comment [Aut omated message] The Basophils) system which ge nerated this result tra nsmitted reference range : <=1.0. The reference r yared was not used to int erpret this result as normal/abnormal . [facility] CenterEkccwyvJEXOYLKJQD2063-45-55 10:56:00 Test Item Value Reference Range Interpretation Comments Neutrophils # (test code = Neutrophils 6.8 1.5-8.1 #) [facility] CenterDzecteuYRDFBVVUYA5267-19-34 10:56:00 Test Item Value Reference Range Interpretation Comments Lymphocytes # (test code = Lymphocytes 1.1 1.0-5.5 #) [facility] CenterAbdkdkmQBIDUTBKWG2504-76-11 10:56:00 Test Item Value Reference Range Interpretation Comments Monocytes # (test code 0.5 See_Comment [Aut omated message] The = Monocytes #) system which generated this result tra nsmitted reference range : <=0.8. The reference r yared was not used to int erpret this result as normal/abnormal . [facility] CenterElemgujOTLRNZCQER9685-37-36 10:56:00 Test Item Value Reference Range Interpretation Comments Basophils # (test code 0.1 See_Comment [Aut omated message] The = Basophils #) system which generated this result tra nsmitted reference range : <=0.2. The reference r yared was not used to int erpret this result as normal/abnormal . [facility]2019-11-11 10:14:00 Test Item Value Reference Range Interpretation Comments Glucose Lvl (test code = Glucose Lvl) 105 70-99 [facility]2019-11-11 10:14:00 Test Item Value Reference Range Interpretation Comments BUN (test code = BUN) 18 7-22 [facility]2019-11-11 10:14:00 Test Item Value Reference Range Interpretation Comments Creatinine Lvl (test code = Creatinine 7.09 0.50-1.40 Lvl) [facility]2019-11-11 10:14:00 Test Item Value Reference Range Interpretation Comments Sodium Lvl (test code = Sodium Lvl) 138 135-145 [facility]2019-11-11 10:14:00 Test Item Value Reference Range Interpretation Comments Potassium Lvl (test code = Potassium 3.6 3.5-5.1 Lvl) [facility]2019-11-11 10:14:00 Test Item Value Reference Range Interpretation Comments Chloride Lvl (test code = Chloride Lvl) 100 95-109 [facility]2019-11-11 10:14:00 Test Item Value Reference Range Interpretation Comments CO2 (test code = CO2) 28 24-32 [facility]2019-11-11 10:14:00 Test Item Value Reference Range Interpretation Comments AGAP (test code = AGAP) 13.6 10.0-20.0 [facility]2019-11-11 10:14:00 Test Item Value Reference Range Interpretation Comments Calcium Lvl (test code = Calcium Lvl) 9.5 8.5-10.5 [facility]2019-11-11 10:14:00 Test Item Value Reference Range Interpretation Comments eGFR (test code = eGFR) 8 [facility] CenterRfwvtjvFXLPPGWLCU5094-44-07 10:14:00 Test Item Value Reference Range Interpretation Comments WBC (test code = WBC) 7.7 3.7-10.4 [facility] CenterMxllirqQGKQSITOML7027-46-89 10:14:00 Test Item Value Reference Range Interpretation Comments RBC (test code = RBC) 3.61 4.70-6.10 [facility] CenterKotrlluCFOVMKQRNX7376-89-25 10:14:00 Test Item Value Reference Range Interpretation Comments Hgb (test code = Hgb) 10.8 14.0-18.0 [facility] CenterVrfjgezOUGIURNDXC0745-01-37 10:14:00 Test Item Value Reference Range Interpretation Comments Hct (test code = Hct) 31.7 42.0-54.0 [facility] CenterUuftekeFYARDYSKXZ8495-98-24 10:14:00 Test Item Value Reference Range Interpretation Comments MCV (test code = MCV) 87.7 80.0-94.0 [facility] CenterWuzgyliFFZEUERUMT5798-23-21 10:14:00 Test Item Value Reference Range Interpretation Comments MCH (test code = MCH) 30.0 pg 27.0-31.0 [facility] CenterVfucfavWWXRBQXCVE3862-32-29 10:14:00 Test Item Value Reference Range Interpretation Comments MCHC (test code = MCHC) 34.2 32.0-36.0 [facility] CenterLanutktVLWHQKYIPT6986-66-32 10:14:00 Test Item Value Reference Range Interpretation Comments RDW (test code = RDW) 14.0 11.5-14.5 [facility] CenterGoqdjkaEPEYQIXLKD8369-27-00 10:14:00 Test Item Value Reference Range Interpretation Comments Platelet (test code = Platelet) 292 133-450 [facility] CenterAgimbuhWSESWQQZVJ6496-93-24 10:14:00 Test Item Value Reference Range Interpretation Comments MPV (test code = MPV) 7.0 7.4-10.4 [facility] CenterLkqmikzOWGQJIASXJ1361-41-88 10:14:00 Test Item Value Reference Range Interpretation Comments Segs (test code = Segs) 75.0 45.0-75.0 [facility] CenterXwzmbkxOQYGYAKIUJ9997-59-55 10:14:00 Test Item Value Reference Range Interpretation Comments Lymphocytes (test code = Lymphocytes) 15.4 20.0-40.0 [facility] CenterFqafhaqTIUARWLNJS3570-02-78 10:14:00 Test Item Value Reference Range Interpretation Comments Monocytes (test code = Monocytes) 7.1 2.0-12.0 [facility] CenterMtepuiaQNFXBQONHF5455-12-92 10:14:00 Test Item Value Reference Range Interpretation Comments Eosinophils (test code = 1.4 See_Comment [A utomated message] The Eosinophils) system which ge nerated this result tra nsmitted reference range : <=4.0. The reference r yared was not used to int erpret this result as normal/abnormal . [facility] CenterHdkvfjiUZQFAYRHUP7303-86-42 10:14:00 Test Item Value Reference Range Interpretation Comments Basophils (test code = 1.1 See_Comment [Aut omated message] The Basophils) system which ge nerated this result tra nsmitted reference range : <=1.0. The reference r yared was not used to int erpret this result as normal/abnormal . [facility] CenterOwlbxgbNXETQCUJBZ4837-61-58 10:14:00 Test Item Value Reference Range Interpretation Comments Neutrophils # (test code = Neutrophils 5.8 1.5-8.1 #) [facility] CenterTivsszpUWWYIEVJMA6426-00-57 10:14:00 Test Item Value Reference Range Interpretation Comments Lymphocytes # (test code = Lymphocytes 1.2 1.0-5.5 #) [facility] CenterPqartpeEKWXKKPXHT9559-11-54 10:14:00 Test Item Value Reference Range Interpretation Comments Monocytes # (test code 0.5 See_Comment [Aut omated message] The = Monocytes #) system which generated this result tra nsmitted reference range : <=0.8. The reference r yared was not used to int erpret this result as normal/abnormal . [facility] CenterHjvdrozVIIQGYZKUF2938-57-35 10:14:00 Test Item Value Reference Range Interpretation Comments Eosinophils # (test code 0.1 See_Comment [A utomated message] The = Eosinophils #) system whic h generated this result tra nsmitted reference range : <=0.5. The reference r yared was not used to int erpret this result as normal/abnormal . [facility] CenterIzbmgmsUDJEOOAZTY1569-27-02 10:14:00 Test Item Value Reference Range Interpretation Comments Basophils # (test code 0.1 See_Comment [Aut omated message] The = Basophils #) system which generated this result tra nsmitted reference range : <=0.2. The reference r yared was not used to int erpret this result as normal/abnormal . [facility]2019-11-11 10:14:00 Test Item Value Reference Range Interpretation Comments Glucose Lvl (test code = Glucose Lvl) 105 70-99 [facility]2019-11-11 10:14:00 Test Item Value Reference Range Interpretation Comments BUN (test code = BUN) 18 7-22 [facility]2019-11-11 10:14:00 Test Item Value Reference Range Interpretation Comments Creatinine Lvl (test code = Creatinine 7.09 0.50-1.40 Lvl) [facility]2019-11-11 10:14:00 Test Item Value Reference Range Interpretation Comments Sodium Lvl (test code = Sodium Lvl) 138 135-145 [facility]2019-11-11 10:14:00 Test Item Value Reference Range Interpretation Comments Potassium Lvl (test code = Potassium 3.6 3.5-5.1 Lvl) [facility]2019-11-11 10:14:00 Test Item Value Reference Range Interpretation Comments Chloride Lvl (test code = Chloride Lvl) 100 95-109 [facility]2019-11-11 10:14:00 Test Item Value Reference Range Interpretation Comments CO2 (test code = CO2) 28 24-32 [facility]2019-11-11 10:14:00 Test Item Value Reference Range Interpretation Comments AGAP (test code = AGAP) 13.6 10.0-20.0 [facility]2019-11-11 10:14:00 Test Item Value Reference Range Interpretation Comments Calcium Lvl (test code = Calcium Lvl) 9.5 8.5-10.5 [facility]2019-11-11 10:14:00 Test Item Value Reference Range Interpretation Comments eGFR (test code = eGFR) 8 [facility] CenterSgzszxxUCJLGVMPSS7161-59-28 10:14:00 Test Item Value Reference Range Interpretation Comments WBC (test code = WBC) 7.7 3.7-10.4 [facility] CenterKoeojwdKKLGCZFHCX7072-96-75 10:14:00 Test Item Value Reference Range Interpretation Comments RBC (test code = RBC) 3.61 4.70-6.10 [facility] CenterJstunmcXLPSHTGSFM2941-58-04 10:14:00 Test Item Value Reference Range Interpretation Comments Hgb (test code = Hgb) 10.8 14.0-18.0 [facility] CenterCzruoukEHKYJZTVAO9436-30-34 10:14:00 Test Item Value Reference Range Interpretation Comments Hct (test code = Hct) 31.7 42.0-54.0 [facility] CenterCqtlwhlSRIDYXUASN3223-15-01 10:14:00 Test Item Value Reference Range Interpretation Comments MCV (test code = MCV) 87.7 80.0-94.0 [facility] CenterKfuexcrCKYLWPYHIZ5868-39-79 10:14:00 Test Item Value Reference Range Interpretation Comments MCH (test code = MCH) 30.0 pg 27.0-31.0 [facility] CenterXrqruyqWCSFIRGJSK2155-38-57 10:14:00 Test Item Value Reference Range Interpretation Comments MCHC (test code = MCHC) 34.2 32.0-36.0 [facility] CenterYtqcordAHMGVQNLMA5203-99-03 10:14:00 Test Item Value Reference Range Interpretation Comments RDW (test code = RDW) 14.0 11.5-14.5 [facility] CenterIjjwcnmHMREIIHEER9031-56-46 10:14:00 Test Item Value Reference Range Interpretation Comments Platelet (test code = Platelet) 292 133-450 [facility] CenterZaovspwRJUUOCRYXB4838-83-57 10:14:00 Test Item Value Reference Range Interpretation Comments MPV (test code = MPV) 7.0 7.4-10.4 [facility] CenterJsbpsrpNMLVMMHJSQ3044-67-88 10:14:00 Test Item Value Reference Range Interpretation Comments Segs (test code = Segs) 75.0 45.0-75.0 [facility] CenterUvmwreqARGUQQHWSC4065-31-10 10:14:00 Test Item Value Reference Range Interpretation Comments Lymphocytes (test code = Lymphocytes) 15.4 20.0-40.0 [facility] CenterJzggvyoXMWVXMKYVB5887-24-61 10:14:00 Test Item Value Reference Range Interpretation Comments Monocytes (test code = Monocytes) 7.1 2.0-12.0 [facility] CenterUmjljhpEFIMFXXMAB1139-33-95 10:14:00 Test Item Value Reference Range Interpretation Comments Eosinophils (test code = 1.4 See_Comment [A utomated message] The Eosinophils) system which ge nerated this result tra nsmitted reference range : <=4.0. The reference r yared was not used to int erpret this result as normal/abnormal . [facility] CenterPizzhtzYBEAQCYOGG0250-52-20 10:14:00 Test Item Value Reference Range Interpretation Comments Basophils (test code = 1.1 See_Comment [Aut omated message] The Basophils) system which ge nerated this result tra nsmitted reference range : <=1.0. The reference r yared was not used to int erpret this result as normal/abnormal . [facility] CenterIuqjqkxKDHCFWVXJG5034-97-39 10:14:00 Test Item Value Reference Range Interpretation Comments Neutrophils # (test code = Neutrophils 5.8 1.5-8.1 #) [facility] CenterDvkcukvNMQAGWQNBN7780-15-91 10:14:00 Test Item Value Reference Range Interpretation Comments Lymphocytes # (test code = Lymphocytes 1.2 1.0-5.5 #) [facility] CenterDlgjoffODKLJGKWLW1448-57-89 10:14:00 Test Item Value Reference Range Interpretation Comments Monocytes # (test code 0.5 See_Comment [Aut omated message] The = Monocytes #) system which generated this result tra nsmitted reference range : <=0.8. The reference r yared was not used to int erpret this result as normal/abnormal . [facility] CenterVvgddbfHFVWFMAZYZ1209-30-81 10:14:00 Test Item Value Reference Range Interpretation Comments Eosinophils # (test code 0.1 See_Comment [A utomated message] The = Eosinophils #) system whic h generated this result tra nsmitted reference range : <=0.5. The reference r yared was not used to int erpret this result as normal/abnormal . [facility] CenterBbskyvfDFFJWSMQYW3237-41-71 10:14:00 Test Item Value Reference Range Interpretation Comments Basophils # (test code 0.1 See_Comment [Aut omated message] The = Basophils #) system which generated this result tra nsmitted reference range : <=0.2. The reference r yared was not used to int erpret this result as normal/abnormal . [facility]2019-11-11 10:14:00 Test Item Value Reference Range Interpretation Comments Glucose Lvl (test code = Glucose Lvl) 105 70-99 [facility]2019-11-11 10:14:00 Test Item Value Reference Range Interpretation Comments BUN (test code = BUN) 18 7-22 [facility]2019-11-11 10:14:00 Test Item Value Reference Range Interpretation Comments Creatinine Lvl (test code = Creatinine 7.09 0.50-1.40 Lvl) [facility]2019-11-11 10:14:00 Test Item Value Reference Range Interpretation Comments Sodium Lvl (test code = Sodium Lvl) 138 135-145 [facility]2019-11-11 10:14:00 Test Item Value Reference Range Interpretation Comments Potassium Lvl (test code = Potassium 3.6 3.5-5.1 Lvl) [facility]2019-11-11 10:14:00 Test Item Value Reference Range Interpretation Comments Chloride Lvl (test code = Chloride Lvl) 100 95-109 [facility]2019-11-11 10:14:00 Test Item Value Reference Range Interpretation Comments CO2 (test code = CO2) 28 24-32 [facility]2019-11-11 10:14:00 Test Item Value Reference Range Interpretation Comments AGAP (test code = AGAP) 13.6 10.0-20.0 [facility]2019-11-11 10:14:00 Test Item Value Reference Range Interpretation Comments Calcium Lvl (test code = Calcium Lvl) 9.5 8.5-10.5 [facility]2019-11-11 10:14:00 Test Item Value Reference Range Interpretation Comments eGFR (test code = eGFR) 8 [facility] CenterIwycqquZCUEHWWERD3805-81-42 10:14:00 Test Item Value Reference Range Interpretation Comments WBC (test code = WBC) 7.7 3.7-10.4 [facility]WfkppksUEHTIHITTS3103-90-85 10:14:00 Test Item Value Reference Range Interpretation Comments RBC (test code = RBC) 3.61 4.70-6.10 [facility] CenterUsoegjeTSYEKHAAQV3205-25-91 10:14:00 Test Item Value Reference Range Interpretation Comments Hgb (test code = Hgb) 10.8 14.0-18.0 [facility] CenterYtllrbiAKJPWBXCQP8607-82-02 10:14:00 Test Item Value Reference Range Interpretation Comments Hct (test code = Hct) 31.7 42.0-54.0 [facility] CenterNiqwvchOMEJGBSUJP7962-45-27 10:14:00 Test Item Value Reference Range Interpretation Comments MCV (test code = MCV) 87.7 80.0-94.0 [facility] CenterZdpdwrsAXVMKRNEAV8851-57-20 10:14:00 Test Item Value Reference Range Interpretation Comments MCH (test code = MCH) 30.0 pg 27.0-31.0 [facility] CenterGgtpvdxBCIHAPYCCS3685-32-88 10:14:00 Test Item Value Reference Range Interpretation Comments MCHC (test code = MCHC) 34.2 32.0-36.0 [facility] CenterJaktmfnARQMJGWJAY4967-81-98 10:14:00 Test Item Value Reference Range Interpretation Comments RDW (test code = RDW) 14.0 11.5-14.5 [facility] CenterHwmcoyoCKLINBKGML9226-66-30 10:14:00 Test Item Value Reference Range Interpretation Comments Platelet (test code = Platelet) 292 133-450 [facility] CenterBohzjhtOSYIERDCRU4461-28-12 10:14:00 Test Item Value Reference Range Interpretation Comments MPV (test code = MPV) 7.0 7.4-10.4 [facility] CenterAshhrenAABPCQLBDC3675-08-47 10:14:00 Test Item Value Reference Range Interpretation Comments Segs (test code = Segs) 75.0 45.0-75.0 [facility] CenterZiutdcbLQPNASKGED1243-75-87 10:14:00 Test Item Value Reference Range Interpretation Comments Lymphocytes (test code = Lymphocytes) 15.4 20.0-40.0 [facility] CenterVqkxooaTKELWTSFHL3128-63-77 10:14:00 Test Item Value Reference Range Interpretation Comments Monocytes (test code = Monocytes) 7.1 2.0-12.0 [facility] CenterFqtduusXKZUMYCPUB0096-57-50 10:14:00 Test Item Value Reference Range Interpretation Comments Eosinophils (test code = 1.4 See_Comment [A utomated message] The Eosinophils) system which ge nerated this result tra nsmitted reference range : <=4.0. The reference r yared was not used to int erpret this result as normal/abnormal . [facility] CenterTerhzcmQIJIVPXXWQ2409-53-76 10:14:00 Test Item Value Reference Range Interpretation Comments Basophils (test code = 1.1 See_Comment [Aut omated message] The Basophils) system which ge nerated this result tra nsmitted reference range : <=1.0. The reference r yared was not used to int erpret this result as normal/abnormal . [facility] CenterXmhvmebXQTQVWIORF5963-52-43 10:14:00 Test Item Value Reference Range Interpretation Comments Neutrophils # (test code = Neutrophils 5.8 1.5-8.1 #) [facility] CenterAgwidnzRJIUSKPPTI2627-29-82 10:14:00 Test Item Value Reference Range Interpretation Comments Lymphocytes # (test code = Lymphocytes 1.2 1.0-5.5 #) [facility] CenterGvcirckCUFDKKYKGO8995-80-68 10:14:00 Test Item Value Reference Range Interpretation Comments Monocytes # (test code 0.5 See_Comment [Aut omated message] The = Monocytes #) system which generated this result tra nsmitted reference range : <=0.8. The reference r yared was not used to int erpret this result as normal/abnormal . [facility] CenterMuqwckkAYHULEESVE7946-06-22 10:14:00 Test Item Value Reference Range Interpretation Comments Eosinophils # (test code 0.1 See_Comment [A utomated message] The = Eosinophils #) system [facility] h generated this result tra nsmitted reference range : <=0.5. The reference r yared was not used to int erpret this result as normal/abnormal . [facility] CenterBkutkokGEZZLAAXOD9096-64-74 10:14:00 Test Item Value Reference Range Interpretation Comments Basophils # (test code 0.1 See_Comment [Aut omated message] The = Basophils #) system which generated this result tra nsmitted reference range : <=0.2. The reference r yared was not used to int erpret this result as normal/abnormal . [facility]2019-11-11 10:14:00 Test Item Value Reference Range Interpretation Comments Glucose Lvl (test code = Glucose Lvl) 105 70-99 [facility]2019-11-11 10:14:00 Test Item Value Reference Range Interpretation Comments BUN (test code = BUN) 18 7-22 [facility]2019-11-11 10:14:00 Test Item Value Reference Range Interpretation Comments Creatinine Lvl (test code = Creatinine 7.09 0.50-1.40 Lvl) [facility]2019-11-11 10:14:00 Test Item Value Reference Range Interpretation Comments Sodium Lvl (test code = Sodium Lvl) 138 135-145 [facility]2019-11-11 10:14:00 Test Item Value Reference Range Interpretation Comments Potassium Lvl (test code = Potassium 3.6 3.5-5.1 Lvl) [facility]2019-11-11 10:14:00 Test Item Value Reference Range Interpretation Comments Chloride Lvl (test code = Chloride Lvl) 100 95-109 [facility]2019-11-11 10:14:00 Test Item Value Reference Range Interpretation Comments CO2 (test code = CO2) 28 24-32 [facility]2019-11-11 10:14:00 Test Item Value Reference Range Interpretation Comments AGAP (test code = AGAP) 13.6 10.0-20.0 [facility]2019-11-11 10:14:00 Test Item Value Reference Range Interpretation Comments Calcium Lvl (test code = Calcium Lvl) 9.5 8.5-10.5 [facility]2019-11-11 10:14:00 Test Item Value Reference Range Interpretation Comments eGFR (test code = eGFR) 8 [facility] CenterLnvcnozSUNNUXUVVI0362-70-42 10:14:00 Test Item Value Reference Range Interpretation Comments WBC (test code = WBC) 7.7 3.7-10.4 [facility] CenterRemmuigOKMVCCBMSS3864-92-46 10:14:00 Test Item Value Reference Range Interpretation Comments RBC (test code = RBC) 3.61 4.70-6.10 [facility] CenterSdvxpmcPMWOCNSFLB1802-90-24 10:14:00 Test Item Value Reference Range Interpretation Comments Hgb (test code = Hgb) 10.8 14.0-18.0 [facility] CenterKfwumrbXEJMHGEIJE9471-86-40 10:14:00 Test Item Value Reference Range Interpretation Comments Hct (test code = Hct) 31.7 42.0-54.0 [facility] CenterMbxxpctHBTCLEOUJI6532-39-25 10:14:00 Test Item Value Reference Range Interpretation Comments MCV (test code = MCV) 87.7 80.0-94.0 [facility] CenterNqjwysaSGWRGFLAKQ0069-68-83 10:14:00 Test Item Value Reference Range Interpretation Comments MCH (test code = MCH) 30.0 pg 27.0-31.0 [facility] CenterEshbnpfDLHNZCQBHL3435-44-10 10:14:00 Test Item Value Reference Range Interpretation Comments MCHC (test code = MCHC) 34.2 32.0-36.0 [facility] CenterApxphpmWUZFQFHJBM3346-63-52 10:14:00 Test Item Value Reference Range Interpretation Comments RDW (test code = RDW) 14.0 11.5-14.5 [facility] CenterJknrosrUKNEHZSQUJ9417-58-92 10:14:00 Test Item Value Reference Range Interpretation Comments Platelet (test code = Platelet) 292 133-450 [facility] CenterLzwdmjhOWWQMIROEW5149-92-84 10:14:00 Test Item Value Reference Range Interpretation Comments MPV (test code = MPV) 7.0 7.4-10.4 [facility] CenterHictcopIXGYCJNHBV6094-64-62 10:14:00 Test Item Value Reference Range Interpretation Comments Segs (test code = Segs) 75.0 45.0-75.0 [facility] CenterNfkmrveZESIDIRGED9697-18-56 10:14:00 Test Item Value Reference Range Interpretation Comments Lymphocytes (test code = Lymphocytes) 15.4 20.0-40.0 [facility] CenterZibvuczFLSAMYEJDI3809-43-00 10:14:00 Test Item Value Reference Range Interpretation Comments Monocytes (test code = Monocytes) 7.1 2.0-12.0 [facility] CenterPcurkqbTRKTNOWGGV3972-97-04 10:14:00 Test Item Value Reference Range Interpretation Comments Eosinophils (test code = 1.4 See_Comment [A utomated message] The Eosinophils) system which ge nerated this result tra nsmitted reference range : <=4.0. The reference r yared was not used to int erpret this result as normal/abnormal . [facility] CenterXjzydgyCQBXNUOGFI9615-89-66 10:14:00 Test Item Value Reference Range Interpretation Comments Basophils (test code = 1.1 See_Comment [Aut omated message] The Basophils) system which ge nerated this result tra nsmitted reference range : <=1.0. The reference r yared was not used to int erpret this result as normal/abnormal . [facility] CenterCzjtxjySLFXKPYYJS5625-60-02 10:14:00 Test Item Value Reference Range Interpretation Comments Neutrophils # (test code = Neutrophils 5.8 1.5-8.1 #) [facility] CenterEbkglkqZGQMGGBKOP8760-74-00 10:14:00 Test Item Value Reference Range Interpretation Comments Lymphocytes # (test code = Lymphocytes 1.2 1.0-5.5 #) [facility] CenterQktqygyRSEHNCTFSC8355-49-76 10:14:00 Test Item Value Reference Range Interpretation Comments Monocytes # (test code 0.5 See_Comment [Aut omated message] The = Monocytes #) system which generated this result tra nsmitted reference range : <=0.8. The reference r yared was not used to int erpret this result as normal/abnormal . [facility] CenterCnmzuhjZPDBVOUNEC8168-51-96 10:14:00 Test Item Value Reference Range Interpretation Comments Eosinophils # (test code 0.1 See_Comment [A utomated message] The = Eosinophils #) system whic h generated this result tra nsmitted reference range : <=0.5. The reference r yared was not used to int erpret this result as normal/abnormal . [facility] CenterVlsnafmEGHGXUYNHL6914-88-75 10:14:00 Test Item Value Reference Range Interpretation Comments Basophils # (test code 0.1 See_Comment [Aut omated message] The = Basophils #) system which generated this result tra nsmitted reference range : <=0.2. The reference r yared was not used to int erpret this result as normal/abnormal . [facility]2019-11-10 10:24:00 Test Item Value Reference Range Interpretation Comments Glucose Lvl (test code = Glucose Lvl) 106 70-99 [facility]2019-11-10 10:24:00 Test Item Value Reference Range Interpretation Comments BUN (test code = BUN) 34 7-22 [facility]2019-11-10 10:24:00 Test Item Value Reference Range Interpretation Comments Creatinine Lvl (test code = Creatinine 11.00 0.50-1.40 Lvl) [facility]2019-11-10 10:24:00 Test Item Value Reference Range Interpretation Comments Sodium Lvl (test code = Sodium Lvl) 139 135-145 [facility]2019-11-10 10:24:00 Test Item Value Reference Range Interpretation Comments Potassium Lvl (test code = Potassium 3.6 3.5-5.1 Lvl) [facility]2019-11-10 10:24:00 Test Item Value Reference Range Interpretation Comments Chloride Lvl (test code = Chloride Lvl) 103 95-109 [facility]2019-11-10 10:24:00 Test Item Value Reference Range Interpretation Comments CO2 (test code = CO2) 28 24-32 [facility]2019-11-10 10:24:00 Test Item Value Reference Range Interpretation Comments AGAP (test code = AGAP) 11.6 10.0-20.0 [facility]2019-11-10 10:24:00 Test Item Value Reference Range Interpretation Comments Calcium Lvl (test code = Calcium Lvl) 9.0 8.5-10.5 [facility]2019-11-10 10:24:00 Test Item Value Reference Range Interpretation Comments eGFR (test code = eGFR) 5 [facility] CenterTouzhahGRJQIMNZUR6030-56-90 10:24:00 Test Item Value Reference Range Interpretation Comments WBC (test code = WBC) 6.9 3.7-10.4 [facility] CenterYupwxocORTERIHMAW0189-56-58 10:24:00 Test Item Value Reference Range Interpretation Comments RBC (test code = RBC) 3.13 4.70-6.10 [facility] CenterMumvupbHKLLTELMDV9746-62-24 10:24:00 Test Item Value Reference Range Interpretation Comments Hgb (test code = Hgb) 9.3 14.0-18.0 [facility] CenterMemidinWYWJMAABHP0318-03-77 10:24:00 Test Item Value Reference Range Interpretation Comments Hct (test code = Hct) 27.4 42.0-54.0 [facility] CenterSrabknaSPVRUETIQU2116-66-69 10:24:00 Test Item Value Reference Range Interpretation Comments MCV (test code = MCV) 87.7 80.0-94.0 [facility] CenterQonryisXQBPVLHUKS0629-15-88 10:24:00 Test Item Value Reference Range Interpretation Comments MCH (test code = MCH) 29.6 pg 27.0-31.0 [facility] CenterSftqphuJEQBQJIIWD5958-10-68 10:24:00 Test Item Value Reference Range Interpretation Comments MCHC (test code = MCHC) 33.8 32.0-36.0 [facility] CenterXpwccmwLAOBZQIGZJ2040-99-94 10:24:00 Test Item Value Reference Range Interpretation Comments RDW (test code = RDW) 14.0 11.5-14.5 [facility] CenterNvgrfjuTCIWDQZSVA6525-49-50 10:24:00 Test Item Value Reference Range Interpretation Comments Platelet (test code = Platelet) 236 133-450 [facility] CenterSgjlkoeQAYDUHXLXP1089-22-37 10:24:00 Test Item Value Reference Range Interpretation Comments MPV (test code = MPV) 6.9 7.4-10.4 [facility] CenterNhvymgtVZJMNAURTQ5857-57-05 10:24:00 Test Item Value Reference Range Interpretation Comments Segs (test code = Segs) 78.2 45.0-75.0 [facility] CenterVyeaylnCEYHFNHMME9513-10-08 10:24:00 Test Item Value Reference Range Interpretation Comments Lymphocytes (test code = Lymphocytes) 12.2 20.0-40.0 [facility] CenterRvbydsnMZZSIFJGON3497-81-72 10:24:00 Test Item Value Reference Range Interpretation Comments Monocytes (test code = Monocytes) 6.6 2.0-12.0 [facility] CenterYcndilcWVUNBNPHAE8270-44-81 10:24:00 Test Item Value Reference Range Interpretation Comments Eosinophils (test code = 2.4 See_Comment [A utomated message] The Eosinophils) system which ge nerated this result tra nsmitted reference range : <=4.0. The reference r yared was not used to int erpret this result as normal/abnormal . [facility] CenterOzttziuEPPFUCAMIL7377-72-84 10:24:00 Test Item Value Reference Range Interpretation Comments Basophils (test code = 0.6 See_Comment [Aut omated message] The Basophils) system which ge nerated this result tra nsmitted reference range : <=1.0. The reference r yared was not used to int erpret this result as normal/abnormal . [facility] CenterObpktxeKCODOFRDQC8622-91-02 10:24:00 Test Item Value Reference Range Interpretation Comments Neutrophils # (test code = Neutrophils 5.4 1.5-8.1 #) [facility] CenterUxfopiqTSCKDULHJI8439-74-74 10:24:00 Test Item Value Reference Range Interpretation Comments Lymphocytes # (test code = Lymphocytes 0.8 1.0-5.5 #) [facility] CenterVtvbadmITLANYZDJS2641-75-08 10:24:00 Test Item Value Reference Range Interpretation Comments Monocytes # (test code 0.5 See_Comment [Aut omated message] The = Monocytes #) system which generated this result tra nsmitted reference range : <=0.8. The reference r yared was not used to int erpret this result as normal/abnormal . [facility] CenterIrlntejTMISDUSWYP6086-19-09 10:24:00 Test Item Value Reference Range Interpretation Comments Eosinophils # (test code 0.2 See_Comment [A utomated message] The = Eosinophils #) system whic h generated this result tra nsmitted reference range : <=0.5. The reference r yared was not used to int erpret this result as normal/abnormal . [facility]2019-11-10 10:24:00 Test Item Value Reference Range Interpretation Comments Glucose Lvl (test code = Glucose Lvl) 106 70-99 [facility]2019-11-10 10:24:00 Test Item Value Reference Range Interpretation Comments BUN (test code = BUN) 34 7-22 [facility]2019-11-10 10:24:00 Test Item Value Reference Range Interpretation Comments Creatinine Lvl (test code = Creatinine 11.00 0.50-1.40 Lvl) [facility]2019-11-10 10:24:00 Test Item Value Reference Range Interpretation Comments Sodium Lvl (test code = Sodium Lvl) 139 135-145 [facility]2019-11-10 10:24:00 Test Item Value Reference Range Interpretation Comments Potassium Lvl (test code = Potassium 3.6 3.5-5.1 Lvl) [facility]2019-11-10 10:24:00 Test Item Value Reference Range Interpretation Comments Chloride Lvl (test code = Chloride Lvl) 103 95-109 [facility]2019-11-10 10:24:00 Test Item Value Reference Range Interpretation Comments CO2 (test code = CO2) 28 24-32 [facility]2019-11-10 10:24:00 Test Item Value Reference Range Interpretation Comments AGAP (test code = AGAP) 11.6 10.0-20.0 [facility]2019-11-10 10:24:00 Test Item Value Reference Range Interpretation Comments Calcium Lvl (test code = Calcium Lvl) 9.0 8.5-10.5 [facility]2019-11-10 10:24:00 Test Item Value Reference Range Interpretation Comments eGFR (test code = eGFR) 5 [facility] CenterCadaftqKDJTYWFRHY3704-57-22 10:24:00 Test Item Value Reference Range Interpretation Comments WBC (test code = WBC) 6.9 3.7-10.4 [facility] CenterAfjysomIFWWFBGQEA0739-82-95 10:24:00 Test Item Value Reference Range Interpretation Comments RBC (test code = RBC) 3.13 4.70-6.10 [facility] CenterAmkpkycBCUGHCAWWT8722-09-74 10:24:00 Test Item Value Reference Range Interpretation Comments Hgb (test code = Hgb) 9.3 14.0-18.0 [facility] CenterQssputeMJDDCLJBEF8163-81-86 10:24:00 Test Item Value Reference Range Interpretation Comments Hct (test code = Hct) 27.4 42.0-54.0 [facility] CenterNprbhpwBJVRIMFEIC7471-55-81 10:24:00 Test Item Value Reference Range Interpretation Comments MCV (test code = MCV) 87.7 80.0-94.0 [facility] CenterDljyulrQKLDACFYPB4326-76-37 10:24:00 Test Item Value Reference Range Interpretation Comments MCH (test code = MCH) 29.6 pg 27.0-31.0 [facility] CenterGplvhiiBSCUBOUAOC1597-48-58 10:24:00 Test Item Value Reference Range Interpretation Comments MCHC (test code = MCHC) 33.8 32.0-36.0 [facility] CenterWzfenmmFXWYAUFCZD5536-63-02 10:24:00 Test Item Value Reference Range Interpretation Comments RDW (test code = RDW) 14.0 11.5-14.5 [facility] CenterTehhrirTSMLFSNXKH3646-89-12 10:24:00 Test Item Value Reference Range Interpretation Comments Platelet (test code = Platelet) 236 133-450 [facility] CenterPcfjinzQBIGPNEXAX2820-89-61 10:24:00 Test Item Value Reference Range Interpretation Comments MPV (test code = MPV) 6.9 7.4-10.4 [facility] CenterLhhpqicFPSHHIPMUX9758-35-79 10:24:00 Test Item Value Reference Range Interpretation Comments Segs (test code = Segs) 78.2 45.0-75.0 [facility] CenterBbopempTQJACUFKZS7822-57-81 10:24:00 Test Item Value Reference Range Interpretation Comments Lymphocytes (test code = Lymphocytes) 12.2 20.0-40.0 [facility] CenterMusifsbFIIPYBRMTF2693-21-87 10:24:00 Test Item Value Reference Range Interpretation Comments Monocytes (test code = Monocytes) 6.6 2.0-12.0 [facility] CenterGcbtalfWUNTDGTNDR8089-28-31 10:24:00 Test Item Value Reference Range Interpretation Comments Eosinophils (test code = 2.4 See_Comment [A utomated message] The Eosinophils) system which ge nerated this result tra nsmitted reference range : <=4.0. The reference r yared was not used to int erpret this result as normal/abnormal . [facility] CenterLslfhniFEQFVRFPMP8304-79-03 10:24:00 Test Item Value Reference Range Interpretation Comments Basophils (test code = 0.6 See_Comment [Aut omated message] The Basophils) system which ge nerated this result tra nsmitted reference range : <=1.0. The reference r yared was not used to int erpret this result as normal/abnormal . [facility] CenterBghcbljBLCXWUZVAK1978-75-49 10:24:00 Test Item Value Reference Range Interpretation Comments Neutrophils # (test code = Neutrophils 5.4 1.5-8.1 #) [facility] CenterXqnoqwkOMQHSUDIOL2236-61-04 10:24:00 Test Item Value Reference Range Interpretation Comments Lymphocytes # (test code = Lymphocytes 0.8 1.0-5.5 #) [facility] CenterJmbjnjsVWCDWKEEYI6112-15-12 10:24:00 Test Item Value Reference Range Interpretation Comments Monocytes # (test code 0.5 See_Comment [Aut omated message] The = Monocytes #) system which generated this result tra nsmitted reference range : <=0.8. The reference r yared was not used to int erpret this result as normal/abnormal . [facility] CenterZsqnddqAKTNUPMWQX1274-48-35 10:24:00 Test Item Value Reference Range Interpretation Comments Eosinophils # (test code 0.2 See_Comment [A utomated message] The = Eosinophils #) system whic h generated this result tra nsmitted reference range : <=0.5. The reference r yared was not used to int erpret this result as normal/abnormal . [facility]2019-11-10 10:24:00 Test Item Value Reference Range Interpretation Comments Glucose Lvl (test code = Glucose Lvl) 106 70-99 [facility]2019-11-10 10:24:00 Test Item Value Reference Range Interpretation Comments BUN (test code = BUN) 34 7-22 [facility]2019-11-10 10:24:00 Test Item Value Reference Range Interpretation Comments Creatinine Lvl (test code = Creatinine 11.00 0.50-1.40 Lvl) [facility]2019-11-10 10:24:00 Test Item Value Reference Range Interpretation Comments Sodium Lvl (test code = Sodium Lvl) 139 135-145 [facility]2019-11-10 10:24:00 Test Item Value Reference Range Interpretation Comments Potassium Lvl (test code = Potassium 3.6 3.5-5.1 Lvl) [facility]2019-11-10 10:24:00 Test Item Value Reference Range Interpretation Comments Chloride Lvl (test code = Chloride Lvl) 103 95-109 [facility]2019-11-10 10:24:00 Test Item Value Reference Range Interpretation Comments CO2 (test code = CO2) 28 24-32 [facility]2019-11-10 10:24:00 Test Item Value Reference Range Interpretation Comments AGAP (test code = AGAP) 11.6 10.0-20.0 [facility]2019-11-10 10:24:00 Test Item Value Reference Range Interpretation Comments Calcium Lvl (test code = Calcium Lvl) 9.0 8.5-10.5 [facility]2019-11-10 10:24:00 Test Item Value Reference Range Interpretation Comments eGFR (test code = eGFR) 5 [facility] CenterBkotgviWJUWKCTDAQ2608-70-31 10:24:00 Test Item Value Reference Range Interpretation Comments WBC (test code = WBC) 6.9 3.7-10.4 [facility] CenterAtowqfiOFRCNOPUEI2267-28-23 10:24:00 Test Item Value Reference Range Interpretation Comments RBC (test code = RBC) 3.13 4.70-6.10 [facility] CenterQjtdypfPZYZDDBCTN6249-81-66 10:24:00 Test Item Value Reference Range Interpretation Comments Hgb (test code = Hgb) 9.3 14.0-18.0 [facility] CenterDdyqfvlZSTNVFHHHR2244-44-59 10:24:00 Test Item Value Reference Range Interpretation Comments Hct (test code = Hct) 27.4 42.0-54.0 [facility] CenterInziatsXBMIRVLRDU5070-92-05 10:24:00 Test Item Value Reference Range Interpretation Comments MCV (test code = MCV) 87.7 80.0-94.0 [facility] CenterFmxwhdiMDCOZRENBR0661-46-35 10:24:00 Test Item Value Reference Range Interpretation Comments MCH (test code = MCH) 29.6 pg 27.0-31.0 [facility] CenterGnzfvkeXKBFEKPOUY9561-56-33 10:24:00 Test Item Value Reference Range Interpretation Comments MCHC (test code = MCHC) 33.8 32.0-36.0 [facility] CenterMxnjjcvTUXEVDWHPO6093-09-77 10:24:00 Test Item Value Reference Range Interpretation Comments RDW (test code = RDW) 14.0 11.5-14.5 [facility] CenterEjzawvwKNMMCLJBJO1799-65-22 10:24:00 Test Item Value Reference Range Interpretation Comments Platelet (test code = Platelet) 236 133-450 [facility] CenterAgtyjmxGVYAAVHCOP6485-14-34 10:24:00 Test Item Value Reference Range Interpretation Comments MPV (test code = MPV) 6.9 7.4-10.4 [facility] CenterUyqmbgkFPQJDCJSQS6059-50-24 10:24:00 Test Item Value Reference Range Interpretation Comments Segs (test code = Segs) 78.2 45.0-75.0 [facility] CenterLnwybbgYVCASBEHIB3932-90-68 10:24:00 Test Item Value Reference Range Interpretation Comments Lymphocytes (test code = Lymphocytes) 12.2 20.0-40.0 [facility] CenterStjiakmVODXQOPKUH0364-94-47 10:24:00 Test Item Value Reference Range Interpretation Comments Monocytes (test code = Monocytes) 6.6 2.0-12.0 [facility] CenterJxfrydjTBOBVHXCVA1126-63-20 10:24:00 Test Item Value Reference Range Interpretation Comments Eosinophils (test code = 2.4 See_Comment [A utomated message] The Eosinophils) system which ge nerated this result tra nsmitted reference range : <=4.0. The reference r yared was not used to int erpret this result as normal/abnormal . [facility] CenterUmjshutOFDGAINZTX9531-41-72 10:24:00 Test Item Value Reference Range Interpretation Comments Basophils (test code = 0.6 See_Comment [Aut omated message] The Basophils) system which ge nerated this result tra nsmitted reference range : <=1.0. The reference r yared was not used to int erpret this result as normal/abnormal . [facility] CenterCcpvzerHDGBPFHZPZ9959-02-85 10:24:00 Test Item Value Reference Range Interpretation Comments Neutrophils # (test code = Neutrophils 5.4 1.5-8.1 #) [facility] CenterQdyxglcBNLLDMZYHX3425-83-94 10:24:00 Test Item Value Reference Range Interpretation Comments Lymphocytes # (test code = Lymphocytes 0.8 1.0-5.5 #) [facility] CenterOutyhxyAIDYZLJKQT7666-06-20 10:24:00 Test Item Value Reference Range Interpretation Comments Monocytes # (test code 0.5 See_Comment [Aut omated message] The = Monocytes #) system which generated this result tra nsmitted reference range : <=0.8. The reference r yared was not used to int erpret this result as normal/abnormal . [facility] CenterIvazciuYMKTIPTAGM6497-63-32 10:24:00 Test Item Value Reference Range Interpretation Comments Eosinophils # (test code 0.2 See_Comment [A utomated message] The = Eosinophils #) system whic h generated this result tra nsmitted reference range : <=0.5. The reference r yared was not used to int erpret this result as normal/abnormal . [facility]2019-11-10 10:24:00 Test Item Value Reference Range Interpretation Comments Glucose Lvl (test code = Glucose Lvl) 106 70-99 [facility]2019-11-10 10:24:00 Test Item Value Reference Range Interpretation Comments BUN (test code = BUN) 34 7-22 [facility]2019-11-10 10:24:00 Test Item Value Reference Range Interpretation Comments Creatinine Lvl (test code = Creatinine 11.00 0.50-1.40 Lvl) [facility]2019-11-10 10:24:00 Test Item Value Reference Range Interpretation Comments Sodium Lvl (test code = Sodium Lvl) 139 135-145 [facility]2019-11-10 10:24:00 Test Item Value Reference Range Interpretation Comments Potassium Lvl (test code = Potassium 3.6 3.5-5.1 Lvl) [facility]2019-11-10 10:24:00 Test Item Value Reference Range Interpretation Comments Chloride Lvl (test code = Chloride Lvl) 103 95-109 [facility]2019-11-10 10:24:00 Test Item Value Reference Range Interpretation Comments CO2 (test code = CO2) 28 24-32 [facility]2019-11-10 10:24:00 Test Item Value Reference Range Interpretation Comments AGAP (test code = AGAP) 11.6 10.0-20.0 [facility]2019-11-10 10:24:00 Test Item Value Reference Range Interpretation Comments Calcium Lvl (test code = Calcium Lvl) 9.0 8.5-10.5 [facility]2019-11-10 10:24:00 Test Item Value Reference Range Interpretation Comments eGFR (test code = eGFR) 5 [facility] CenterWbjushkLNCTNCVHHF0783-88-12 10:24:00 Test Item Value Reference Range Interpretation Comments WBC (test code = WBC) 6.9 3.7-10.4 [facility] CenterYylbvcvSIESHTBYSF3612-02-23 10:24:00 Test Item Value Reference Range Interpretation Comments RBC (test code = RBC) 3.13 4.70-6.10 [facility] CenterJmovssvSONYNEANSJ7598-44-77 10:24:00 Test Item Value Reference Range Interpretation Comments Hgb (test code = Hgb) 9.3 14.0-18.0 [facility] CenterLkjjwwxZILDTAMYOH7377-96-98 10:24:00 Test Item Value Reference Range Interpretation Comments Hct (test code = Hct) 27.4 42.0-54.0 [facility] CenterQcoayfrUZWQNHNFLY3292-88-24 10:24:00 Test Item Value Reference Range Interpretation Comments MCV (test code = MCV) 87.7 80.0-94.0 [facility] CenterZqpfqkmLTBTRTVAAA1471-49-49 10:24:00 Test Item Value Reference Range Interpretation Comments MCH (test code = MCH) 29.6 pg 27.0-31.0 [facility] CenterVbiqacyKFOANPARJV5763-50-39 10:24:00 Test Item Value Reference Range Interpretation Comments MCHC (test code = MCHC) 33.8 32.0-36.0 [facility] CenterEwprzhlHPQSFBHZBC9071-09-17 10:24:00 Test Item Value Reference Range Interpretation Comments RDW (test code = RDW) 14.0 11.5-14.5 [facility] CenterBpwznwaPAKDTEHFCK4809-68-54 10:24:00 Test Item Value Reference Range Interpretation Comments Platelet (test code = Platelet) 236 133-450 [facility] CenterVqkpjfnMSFJVBUIYM6923-65-66 10:24:00 Test Item Value Reference Range Interpretation Comments MPV (test code = MPV) 6.9 7.4-10.4 [facility] CenterTwjqxjdNEFTGOYODH7255-16-65 10:24:00 Test Item Value Reference Range Interpretation Comments Segs (test code = Segs) 78.2 45.0-75.0 [facility] CenterFxwhnveTSLHMZDJMB5957-93-11 10:24:00 Test Item Value Reference Range Interpretation Comments Lymphocytes (test code = Lymphocytes) 12.2 20.0-40.0 [facility] CenterDsgmebwPSYCKNKNRG8064-75-96 10:24:00 Test Item Value Reference Range Interpretation Comments Monocytes (test code = Monocytes) 6.6 2.0-12.0 [facility] CenterRohpkeuMHRZTHGGFD4877-59-96 10:24:00 Test Item Value Reference Range Interpretation Comments Eosinophils (test code = 2.4 See_Comment [A utomated message] The Eosinophils) system which ge nerated this result tra nsmitted reference range : <=4.0. The reference r yared was not used to int erpret this result as normal/abnormal . [facility] CenterBwjwfrzBYQHQZOCKA4915-19-05 10:24:00 Test Item Value Reference Range Interpretation Comments Basophils (test code = 0.6 See_Comment [Aut omated message] The Basophils) system which ge nerated this result tra nsmitted reference range : <=1.0. The reference r yared was not used to int erpret this result as normal/abnormal . [facility] CenterQsczwerBCEHAJLFKT2993-32-21 10:24:00 Test Item Value Reference Range Interpretation Comments Neutrophils # (test code = Neutrophils 5.4 1.5-8.1 #) [facility] CenterZqejjtfAPIIILNERB3336-05-02 10:24:00 Test Item Value Reference Range Interpretation Comments Lymphocytes # (test code = Lymphocytes 0.8 1.0-5.5 #) [facility] CenterUjvdqzhLTJFTBVOIK4987-73-77 10:24:00 Test Item Value Reference Range Interpretation Comments Monocytes # (test code 0.5 See_Comment [Aut omated message] The = Monocytes #) system which generated this result tra nsmitted reference range : <=0.8. The reference r yared was not used to int erpret this result as normal/abnormal . [facility] CenterJnanfosNQSGIPBQLN6860-21-92 10:24:00 Test Item Value Reference Range Interpretation Comments Eosinophils # (test code 0.2 See_Comment [A utomated message] The = Eosinophils #) system whic h generated this result tra nsmitted reference range : <=0.5. The reference r yared was not used to int erpret this result as normal/abnormal . [facility]EmltgulLJLOPOVRLE8718-45-71 14:31:00 Test Item Value Reference Range Interpretation Comments Hep Bs Ag (test code Negative *NA*(08/17/19 = Hep Bs Ag) 8:31 AM) [facility] HospitalBbovdehUJZJQNSLME1816-13-98 14:31:00 Test Item Value Reference Range Interpretation Comments Hep Bs Ag (test code Negative *NA*(08/17/19 = Hep Bs Ag) 8:31 AM) [facility] HospitalTsdadsjLJLRWAQLPF6933-25-61 14:31:00 Test Item Value Reference Range Interpretation Comments Hep Bs Ag (test code Negative *NA*(08/17/19 = Hep Bs Ag) 8:31 AM) [facility] HospitalKxewhznCLRNCLLONY1358-96-60 14:31:00 Test Item Value Reference Range Interpretation Comments Hep Bs Ag (test code Negative *NA*(08/17/19 = Hep Bs Ag) 8:31 AM) [facility] CenterQrrqetgVXTONTTZTL2581-71-44 19:35:00 Test Item Value Reference Range Interpretation Comments PT (test code = PT) 12.2 s 12.0-14.7 [facility] CenterYsahzgjNRYIHECAZN1246-89-87 19:35:00 Test Item Value Reference Range Interpretation Comments INR (test code = INR) 0.92 1 0.85-1.17 [facility] CenterCufzmpgKRVNKJPBBD5502-23-58 19:35:00 Test Item Value Reference Range Interpretation Comments PTT (test code = PTT) 37.1 s 22.9-35.8 [facility] CenterWtdhhgsZGVXRFGKBP6573-41-93 19:35:00 Test Item Value Reference Range Interpretation Comments PT (test code = PT) 12.2 s 12.0-14.7 [facility] CenterShvygjgJKZJWBMDPX9728-31-45 19:35:00 Test Item Value Reference Range Interpretation Comments INR (test code = INR) 0.92 1 0.85-1.17 [facility] CenterRtfdpkgKYKLVNVMAE2478-69-33 19:35:00 Test Item Value Reference Range Interpretation Comments PTT (test code = PTT) 37.1 s 22.9-35.8 [place] 101439-11-08 19:35:00 Test Item Value Reference Range Interpretation Comments PT (test code = PT) 12.2 s 12.0-14.7 [facility] CenterFkwhlgpTVULHDRBEH2606-83-67 19:35:00 Test Item Value Reference Range Interpretation Comments INR (test code = INR) 0.92 1 0.85-1.17 [facility] CenterCknyhetGXWVSOAPBL6938-54-72 19:35:00 Test Item Value Reference Range Interpretation Comments PTT (test code = PTT) 37.1 s 22.9-35.8 [facility] CenterNrntgkoLWNFKCNSUS4162-95-38 19:35:00 Test Item Value Reference Range Interpretation Comments PT (test code = PT) 12.2 s 12.0-14.7 [facility] CenterObmwqhcLNIFZSBYHR8608-08-53 19:35:00 Test Item Value Reference Range Interpretation Comments INR (test code = INR) 0.92 1 0.85-1.17 [facility] CenterBieutehAEJLVVFHRZ0441-10-22 19:35:00 Test Item Value Reference Range Interpretation Comments PTT (test code = PTT) 37.1 s 22.9-35.8 [facility]2019-06-30 10:20:00 Test Item Value Reference Range Interpretation Comments eGFR (test code = eGFR) 3 [facility]2019-06-30 10:20:00 Test Item Value Reference Range Interpretation Comments Glucose Lvl (test code = Glucose Lvl) 96 70-99 [facility]2019-06-30 10:20:00 Test Item Value Reference Range Interpretation Comments BUN (test code = BUN) 68 7-22 [facility]2019-06-30 10:20:00 Test Item Value Reference Range Interpretation Comments Calcium Lvl (test code = Calcium Lvl) 8.7 8.5-10.5 [facility]2019-06-30 10:20:00 Test Item Value Reference Range Interpretation Comments AGAP (test code = AGAP) 16.7 10.0-20.0 [facility]2019-06-30 10:20:00 Test Item Value Reference Range Interpretation Comments Sodium Lvl (test code = Sodium Lvl) 131 135-145 [facility]2019-06-30 10:20:00 Test Item Value Reference Range Interpretation Comments CO2 (test code = CO2) 25 24-32 [facility]2019-06-30 10:20:00 Test Item Value Reference Range Interpretation Comments Potassium Lvl (test code = Potassium 3.7 3.5-5.1 Lvl) [facility]2019-06-30 10:20:00 Test Item Value Reference Range Interpretation Comments Chloride Lvl (test code = Chloride Lvl) 93 95-109 [facility]2019-06-30 10:20:00 Test Item Value Reference Range Interpretation Comments Creatinine Lvl (test code = Creatinine 15.20 0.50-1.40 Lvl) [facility]2019-06-30 10:20:00 Test Item Value Reference Range Interpretation Comments eGFR (test code = eGFR) 3 [facility]2019-06-30 10:20:00 Test Item Value Reference Range Interpretation Comments Glucose Lvl (test code = Glucose Lvl) 96 70-99 [facility]2019-06-30 10:20:00 Test Item Value Reference Range Interpretation Comments BUN (test code = BUN) 68 7-22 [facility]2019-06-30 10:20:00 Test Item Value Reference Range Interpretation Comments Calcium Lvl (test code = Calcium Lvl) 8.7 8.5-10.5 [facility]2019-06-30 10:20:00 Test Item Value Reference Range Interpretation Comments AGAP (test code = AGAP) 16.7 10.0-20.0 [facility]2019-06-30 10:20:00 Test Item Value Reference Range Interpretation Comments Sodium Lvl (test code = Sodium Lvl) 131 135-145 [facility]2019-06-30 10:20:00 Test Item Value Reference Range Interpretation Comments CO2 (test code = CO2) 25 24-32 [facility]2019-06-30 10:20:00 Test Item Value Reference Range Interpretation Comments Potassium Lvl (test code = Potassium 3.7 3.5-5.1 Lvl) [facility]2019-06-30 10:20:00 Test Item Value Reference Range Interpretation Comments Chloride Lvl (test code = Chloride Lvl) 93 95-109 [facility]2019-06-30 10:20:00 Test Item Value Reference Range Interpretation Comments Creatinine Lvl (test code = Creatinine 15.20 0.50-1.40 Lvl) [facility]2019-06-30 10:20:00 Test Item Value Reference Range Interpretation Comments eGFR (test code = eGFR) 3 [facility]2019-06-30 10:20:00 Test Item Value Reference Range Interpretation Comments Glucose Lvl (test code = Glucose Lvl) 96 70-99 [facility]2019-06-30 10:20:00 Test Item Value Reference Range Interpretation Comments BUN (test code = BUN) 68 7-22 [facility]2019-06-30 10:20:00 Test Item Value Reference Range Interpretation Comments Calcium Lvl (test code = Calcium Lvl) 8.7 8.5-10.5 [facility]2019-06-30 10:20:00 Test Item Value Reference Range Interpretation Comments AGAP (test code = AGAP) 16.7 10.0-20.0 [facility]2019-06-30 10:20:00 Test Item Value Reference Range Interpretation Comments Sodium Lvl (test code = Sodium Lvl) 131 135-145 [facility]2019-06-30 10:20:00 Test Item Value Reference Range Interpretation Comments CO2 (test code = CO2) 25 24-32 [facility]2019-06-30 10:20:00 Test Item Value Reference Range Interpretation Comments Potassium Lvl (test code = Potassium 3.7 3.5-5.1 Lvl) [facility]2019-06-30 10:20:00 Test Item Value Reference Range Interpretation Comments Chloride Lvl (test code = Chloride Lvl) 93 95-109 [facility]2019-06-30 10:20:00 Test Item Value Reference Range Interpretation Comments Creatinine Lvl (test code = Creatinine 15.20 0.50-1.40 Lvl) [facility]2019-06-30 10:20:00 Test Item Value Reference Range Interpretation Comments eGFR (test code = eGFR) 3 [facility]2019-06-30 10:20:00 Test Item Value Reference Range Interpretation Comments Glucose Lvl (test code = Glucose Lvl) 96 70-99 [facility]2019-06-30 10:20:00 Test Item Value Reference Range Interpretation Comments BUN (test code = BUN) 68 7-22 [facility]2019-06-30 10:20:00 Test Item Value Reference Range Interpretation Comments Calcium Lvl (test code = Calcium Lvl) 8.7 8.5-10.5 [facility]2019-06-30 10:20:00 Test Item Value Reference Range Interpretation Comments AGAP (test code = AGAP) 16.7 10.0-20.0 [facility]2019-06-30 10:20:00 Test Item Value Reference Range Interpretation Comments Sodium Lvl (test code = Sodium Lvl) 131 135-145 [facility]2019-06-30 10:20:00 Test Item Value Reference Range Interpretation Comments CO2 (test code = CO2) 25 24-32 [facility]2019-06-30 10:20:00 Test Item Value Reference Range Interpretation Comments Potassium Lvl (test code = Potassium 3.7 3.5-5.1 Lvl) [facility]2019-06-30 10:20:00 Test Item Value Reference Range Interpretation Comments Chloride Lvl (test code = Chloride Lvl) 93 95-109 [facility]2019-06-30 10:20:00 Test Item Value Reference Range Interpretation Comments Creatinine Lvl (test code = Creatinine 15.20 0.50-1.40 Lvl) [facility] [id number] 14:42:00 Test Item Value Reference Range Interpretation Comments Troponin-I (test code 0.03 See_Comment [Auto mated message] The = Troponin-I) system which g enerated this result transmit emerson reference range : <=0.40. The reference r yared was not used to interpr et this result as erinn l/abnormal. [facility] [id number] 14:42:00 Test Item Value Reference Range Interpretation Comments Troponin-I (test code 0.03 See_Comment [Auto mated message] The = Troponin-I) system which g enerated this result transmit emerson reference range : <=0.40. The reference r yared was not used to interpr et this result as erinn l/abnormal. [facility] [id number] 14:42:00 Test Item Value Reference Range Interpretation Comments Troponin-I (test code 0.03 See_Comment [Auto mated message] The = Troponin-I) system which g enerated this result transmit emerson reference range : <=0.40. The reference r yared was not used to interpr et this result as erinn l/abnormal. [facility]2019-06-29 14:42:00 Test Item Value Reference Range Interpretation Comments Troponin-I (test code 0.03 See_Comment [Auto mated message] The = Troponin-I) system which g enerated this result transmit emerson reference range : <=0.40. The reference r yared was not used to interpr et this result as erinn l/abnormal. [facility] Stain Izzrzh3881-91-73 14:25:00 Test Item Value Reference Range Interpretation Comments Gram Stain Report Rare WBC's No Organisms (test code = Gram Seen Stain Report) [facility] Aspirate/Body Fluid/Xytjvb6939-20-02 14:25:00 Test Item Value Reference Range Interpretation Comments Culture: Aspirate/Body Fluid/Tissue No Growth (test code = Culture: Aspirate/Body Fluid/Tissue) [facility] Stain Hersiu5711-19-51 14:25:00 Test Item Value Reference Range Interpretation Comments Gram Stain Report Rare WBC's No Organisms (test code = Gram Seen Stain Report) [facility] Fluid/Exxbbe6022-37-45 14:25:00 Test Item Value Reference Range Interpretation Comments Culture: Aspirate/Body Fluid/Tissue No Growth (test code = Culture: Aspirate/Body Fluid/Tissue) [facility] Stain [id number] 14:25:00 Test Item Value Reference Range Interpretation Comments Gram Stain Report Rare WBC's No Organisms (test code = Gram Seen Stain Report) [facility] Aspirate/Body Fluid/Hddtlw6459-74-99 14:25:00 Test Item Value Reference Range Interpretation Comments Culture: Aspirate/Body Fluid/Tissue No Growth (test code = Culture: Aspirate/Body Fluid/Tissue) [facility] Rqdauz9142-04-32 14:25:00 Test Item Value Reference Range Interpretation Comments Gram Stain Report Rare WBC's No Organisms (test code = Gram Seen Stain Report) [facility]Culture: Aspirate/Body Fluid/Tperlm3315-13-69 14:25:00 Test Item Value Reference Range Interpretation Comments Culture: Aspirate/Body Fluid/Tissue No Growth (test code = Culture: Aspirate/Body Fluid/Tissue) [facility] [id number] 08:16:00 Test Item Value Reference Range Interpretation Comments Vitamin B12 Lvl (test code = Vitamin [phone] B12 Lvl) [facility] [id number] 08:16:00 Test Item Value Reference Range Interpretation Comments Troponin-I (test code 0.04 See_Comment [Auto mated message] The = Troponin-I) system which g enerated this result transmit emerson reference range : <=0.40. The reference r yared was not used to interpr et this result as erinn l/abnormal. [facility] [employer] [id number] 08:16:00 Test Item Value Reference Range Interpretation Comments Magnesium Lvl (test code = Magnesium 1.8 1.8-2.4 Lvl) [facility] [id number] 08:16:00 Test Item Value Reference Range Interpretation Comments eGFR (test code = eGFR) 3 [facility] HospitalYourListen.com [id number] 08:16:00 Test Item Value Reference Range Interpretation Comments A/G Ratio (test code = A/G Ratio) 0.6 1 0.7-1.6 [facility] [id number] 08:16:00 Test Item Value Reference Range Interpretation Comments B/C Ratio (test code = B/C Ratio) 4 1 6-25 [facility] [id number] 08:16:00 Test Item Value Reference Range Interpretation Comments Globulin (test code = Globulin) 3.4 2.7-4.2 [facility]2019-06-29 08:16:00 Test Item Value Reference Range Interpretation Comments Bili Total (test code = Bili Total) 0.4 0.2-1.3 [facility]2019-06-29 08:16:00 Test Item Value Reference Range Interpretation Comments AGAP (test code = AGAP) 18.3 10.0-20.0 [facility]2019-06-29 08:16:00 Test Item Value Reference Range Interpretation Comments Chloride Lvl (test code = Chloride Lvl) 93 95-109 [facility]2019-06-29 08:16:00 Test Item Value Reference Range Interpretation Comments CO2 (test code = CO2) 23 24-32 [facility]2019-06-29 08:16:00 Test Item Value Reference Range Interpretation Comments Calcium Lvl (test code = Calcium Lvl) 8.1 8.5-10.5 [facility]2019-06-29 08:16:00 Test Item Value Reference Range Interpretation Comments Glucose Lvl (test code = Glucose Lvl) 57 70-99 [facility]2019-06-29 08:16:00 Test Item Value Reference Range Interpretation Comments BUN (test code = BUN) 60 7-22 [facility]2019-06-29 08:16:00 Test Item Value Reference Range Interpretation Comments Sodium Lvl (test code = Sodium Lvl) 130 135-145 [facility]2019-06-29 08:16:00 Test Item Value Reference Range Interpretation Comments Creatinine Lvl (test code = Creatinine 15.90 0.50-1.40 Lvl) [facility]2019-06-29 08:16:00 Test Item Value Reference Range Interpretation Comments Potassium Lvl (test code = Potassium 4.3 3.5-5.1 Lvl) [facility]2019-06-29 08:16:00 Test Item Value Reference Range Interpretation Comments ALT (test code = ALT) 21 See_Comment [Auto mated message] The system which ge nerated this result transmit emerson reference range : <=65. The reference range was not used to interpr et this result as erinn l/abnormal. [facility]2019-06-29 08:16:00 Test Item Value Reference Range Interpretation Comments Alk Phos (test code = Alk Phos) 76 39-136 [facility]2019-06-29 08:16:00 Test Item Value Reference Range Interpretation Comments AST (test code = AST) 16 See_Comment [Auto mated message] The system which ge nerated this result transmit emerson reference range : <=37. The reference range was not used to interpr et this result as erinn l/abnormal. [facility]2019-06-29 08:16:00 Test Item Value Reference Range Interpretation Comments Total Protein (test code = Total 5.6 6.4-8.4 Protein) [facility]2019-06-29 08:16:00 Test Item Value Reference Range Interpretation Comments Albumin Lvl (test code = Albumin Lvl) 2.2 3.5-5.0 [facility] CenterKtwbzhdQIFOAUEIPM9075-72-37 08:16:00 Test Item Value Reference Range Interpretation Comments PTT (test code = PTT) 41.5 s 22.9-35.8 [facility] CenterMvmcvqbXZMDWWQXQR8807-53-67 08:16:00 Test Item Value Reference Range Interpretation Comments PT (test code = PT) 14.4 s 12.0-14.7 [facility] CenterPyminbkPQONGGYEMP1960 08:16:00 Test Item Value Reference Range Interpretation Comments INR (test code = INR) 1.14 1 0.85-1.17 [facility] CenterTfclulrGNBNCQIQVN2027-12-13 08:16:00 Test Item Value Reference Range Interpretation Comments RDW (test code = RDW) 15.5 11.5-14.5 [facility] [id number] 08:16:00 Test Item Value Reference Range Interpretation Comments Platelet (test code = Platelet) 139 133-450 [facility]CdvopqfITQKPGFVQO4789-26-73 08:16:00 Test Item Value Reference Range Interpretation Comments MCH (test code = MCH) 28.7 pg 27.0-31.0 [facility] CenterFbydnztAKWZFUOYNC2513-13-26 08:16:00 Test Item Value Reference Range Interpretation Comments MCHC (test code = MCHC) 34.2 32.0-36.0 [facility] CenterOtxqlnsUJJWWHOODT6339-45-73 08:16:00 Test Item Value Reference Range Interpretation Comments MCV (test code = MCV) 84.1 80.0-94.0 [facility] CenterRicuqqiKJKLYCRLCA4007-41-62 08:16:00 Test Item Value Reference Range Interpretation Comments Hgb (test code = Hgb) 11.4 14.0-18.0 [facility] CenterJgxukfuFPSVRWJUKT2106-30-12 08:16:00 Test Item Value Reference Range Interpretation Comments Hct (test code = Hct) 33.2 42.0-54.0 [facility] CenterDgqxqdzLFMNQQWYLI1885-07-70 08:16:00 Test Item Value Reference Range Interpretation Comments WBC (test code = WBC) 10.2 3.7-10.4 [facility] CenterXffbqxtUTDQVJFMME5887-46-25 08:16:00 Test Item Value Reference Range Interpretation Comments RBC (test code = RBC) 3.95 4.70-6.10 [facility] CenterAbviqyaSAUVPNWXSE1308-99-95 08:16:00 Test Item Value Reference Range Interpretation Comments MPV (test code = MPV) 8.3 7.4-10.4 [facility] CenterXgnkyiqPOWEFUFCHV9396-51-66 08:16:00 Test Item Value Reference Range Interpretation Comments Segs (test code = Segs) 84.8 45.0-75.0 [facility] CenterUwmyywhNEAYZVDOQK9703-06-15 08:16:00 Test Item Value Reference Range Interpretation Comments Basophils # (test code 0.1 See_Comment [Aut omated message] The = Basophils #) system which generated this result tra nsmitted reference range : <=0.2. The reference r yared was not used to int erpret this result as normal/abnormal . [facility] CenterWdxywbkQNEPSYERSV5372-95-27 08:16:00 Test Item Value Reference Range Interpretation Comments Basophils (test code = 0.5 See_Comment [Aut omated message] The Basophils) system which ge nerated this result tra nsmitted reference range : <=1.0. The reference r yared was not used to int erpret this result as normal/abnormal . [facility] CenterPmhiqfvZTYTARLROU0511-44-70 08:16:00 Test Item Value Reference Range Interpretation Comments Eosinophils (test code = 1.2 See_Comment [A utomated message] The Eosinophils) system which ge nerated this result tra nsmitted reference range : <=4.0. The reference r yared was not used to int erpret this result as normal/abnormal . [facility] CenterDihhnepENKMKMUHOV7249-64-41 08:16:00 Test Item Value Reference Range Interpretation Comments Monocytes (test code = Monocytes) 6.5 2.0-12.0 [facility]EdyjupeBUDSIIADBR3193-01-33 08:16:00 Test Item Value Reference Range Interpretation Comments Lymphocytes (test code = Lymphocytes) 7.0 20.0-40.0 [facility]SsdqpvkJAVWDPLXUD5586-28-58 08:16:00 Test Item Value Reference Range Interpretation Comments Eosinophils # (test code 0.1 See_Comment [A utomated message] The = Eosinophils #) system whic h generated this result tra nsmitted reference range : <=0.5. The reference r yared was not used to int erpret this result as normal/abnormal . [facility] CenterZzowapwPWEACGCTMB6620-28-64 08:16:00 Test Item Value Reference Range Interpretation Comments Monocytes # (test code 0.7 See_Comment [Aut omated message] The = Monocytes #) system which generated this result tra nsmitted reference range : <=0.8. The reference r ayred was not used to int erpret this result as normal/abnormal . [facility] CenterTajevegCJOUPMRGQN3073-15-08 08:16:00 Test Item Value Reference Range Interpretation Comments Lymphocytes # (test code = Lymphocytes 0.7 1.0-5.5 #) [facility] CenterAicazqcKPGMREAVLM4039-52-61 08:16:00 Test Item Value Reference Range Interpretation Comments Neutrophils # (test code = Neutrophils 8.7 1.5-8.1 #) [facility] TEKFR8900-21-15 08:16:00 Test Item Value Reference Range Interpretation Comments Vitamin B12 Lvl (test code = Vitamin 798 466-0800 B12 Lvl) [facility] HospitalCARDIAC NSLPNWG5276-00-22 08:16:00 Test Item Value Reference Range Interpretation Comments Troponin-I (test code 0.04 See_Comment [Auto mated message] The = Troponin-I) system which g enerated this result transmit emerson reference range : <=0.40. The reference r yared was not used to interpr et this result as erinn l/abnormal. [facility] HospitalYourListen.[facility] BRRNX7839-54-58 08:16:00 Test Item Value Reference Range Interpretation Comments Magnesium Lvl (test code = Magnesium 1.8 1.8-2.4 Lvl) [facility]YourListen[facility] SOQEC4497-34-86 08:16:00 Test Item Value Reference Range Interpretation Comments eGFR (test code = eGFR) 3 [facility]2019-06-29 08:16:00 Test Item Value Reference Range Interpretation Comments A/G Ratio (test code = A/G Ratio) 0.6 1 0.7-1.6 [facility]2019-06-29 08:16:00 Test Item Value Reference Range Interpretation Comments B/C Ratio (test code = B/C Ratio) 4 1 6-25 [facility]2019-06-29 08:16:00 Test Item Value Reference Range Interpretation Comments Globulin (test code = Globulin) 3.4 2.7-4.2 [facility]2019-06-29 08:16:00 Test Item Value Reference Range Interpretation Comments Bili Total (test code = Bili Total) 0.4 0.2-1.3 [facility]2019-06-29 08:16:00 Test Item Value Reference Range Interpretation Comments AGAP (test code = AGAP) 18.3 10.0-20.0 [facility]2019-06-29 08:16:00 Test Item Value Reference Range Interpretation Comments Chloride Lvl (test code = Chloride Lvl) 93 95-109 [facility]2019-06-29 08:16:00 Test Item Value Reference Range Interpretation Comments CO2 (test code = CO2) 23 24-32 [facility]2019-06-29 08:16:00 Test Item Value Reference Range Interpretation Comments Calcium Lvl (test code = Calcium Lvl) 8.1 8.5-10.5 [facility]2019-06-29 08:16:00 Test Item Value Reference Range Interpretation Comments Glucose Lvl (test code = Glucose Lvl) 57 70-99 [facility]2019-06-29 08:16:00 Test Item Value Reference Range Interpretation Comments BUN (test code = BUN) 60 7-22 [facility]2019-06-29 08:16:00 Test Item Value Reference Range Interpretation Comments Sodium Lvl (test code = Sodium Lvl) 130 135-145 [facility]2019-06-29 08:16:00 Test Item Value Reference Range Interpretation Comments Creatinine Lvl (test code = Creatinine 15.90 0.50-1.40 Lvl) [facility]2019-06-29 08:16:00 Test Item Value Reference Range Interpretation Comments Potassium Lvl (test code = Potassium 4.3 3.5-5.1 Lvl) [facility]2019-06-29 08:16:00 Test Item Value Reference Range Interpretation Comments ALT (test code = ALT) 21 See_Comment [Auto mated message] The system which ge nerated this result transmit emerson reference range : <=65. The reference range was not used to interpr et this result as erinn l/abnormal. [facility]2019-06-29 08:16:00 Test Item Value Reference Range Interpretation Comments Alk Phos (test code = Alk Phos) 76 39-136 [facility]2019-06-29 08:16:00 Test Item Value Reference Range Interpretation Comments AST (test code = AST) 16 See_Comment [Auto mated message] The system which ge nerated this result transmit emerson reference range : <=37. The reference range was not used to interpr et this result as erinn l/abnormal. [facility]2019-06-29 08:16:00 Test Item Value Reference Range Interpretation Comments Total Protein (test code = Total 5.6 6.4-8.4 Protein) [facility]2019-06-29 08:16:00 Test Item Value Reference Range Interpretation Comments Albumin Lvl (test code = Albumin Lvl) 2.2 3.5-5.0 [facility] CenterGltyscpTWETKGBXFI4911-95-46 08:16:00 Test Item Value Reference Range Interpretation Comments PTT (test code = PTT) 41.5 s 22.9-35.8 [facility] CenterArujuvcSZKWBEOIZV2980-20-15 08:16:00 Test Item Value Reference Range Interpretation Comments PT (test code = PT) 14.4 s 12.0-14.7 [place] 101439-06-29 08:16:00 Test Item Value Reference Range Interpretation Comments INR (test code = INR) 1.14 1 0.85-1.17 [place] 101439-06-29 08:16:00 Test Item Value Reference Range Interpretation Comments RDW (test code = RDW) 15.5 11.5-14.5 [facility] CenterRmeejmnCOKRZBOBXZ8626-81-88 08:16:00 Test Item Value Reference Range Interpretation Comments Platelet (test code = Platelet) 139 133-450 [facility] CenterRtivxjnLEAORZYNII3416-28-53 08:16:00 Test Item Value Reference Range Interpretation Comments MCH (test code = MCH) 28.7 pg 27.0-31.0 [facility] CenterQhyzejgXYHPIKTYRV5166-35-40 08:16:00 Test Item Value Reference Range Interpretation Comments MCHC (test code = MCHC) 34.2 32.0-36.0 [facility] CenterUwdnjwzYLQVYQIUYX8448-12-83 08:16:00 Test Item Value Reference Range Interpretation Comments MCV (test code = MCV) 84.1 80.0-94.0 [facility] CenterXxnsasxRVEEWFOKDD9439-42-14 08:16:00 Test Item Value Reference Range Interpretation Comments Hgb (test code = Hgb) 11.4 14.0-18.0 [facility] CenterQpumdmkBNGIPXQKYH8756-38-66 08:16:00 Test Item Value Reference Range Interpretation Comments Hct (test code = Hct) 33.2 42.0-54.0 [facility] CenterAccelcsRREWDZZPGX6629-26-29 08:16:00 Test Item Value Reference Range Interpretation Comments WBC (test code = WBC) 10.2 3.7-10.4 [facility] CenterEjgfdevMAAYEIRZQD5252-92-96 08:16:00 Test Item Value Reference Range Interpretation Comments RBC (test code = RBC) 3.95 4.70-6.10 [facility] CenterXdyxpndZXPZUAUFQL5900-55-44 08:16:00 Test Item Value Reference Range Interpretation Comments MPV (test code = MPV) 8.3 7.4-10.4 [facility] CenterVtqulahRWANTPOTEZ0379-92-65 08:16:00 Test Item Value Reference Range Interpretation Comments Segs (test code = Segs) 84.8 45.0-75.0 [facility] CenterDxabufcVIUDWQLNFN5483-11-46 08:16:00 Test Item Value Reference Range Interpretation Comments Basophils # (test code 0.1 See_Comment [Aut omated message] The = Basophils #) system which generated this result tra nsmitted reference range : <=0.2. The reference r yared was not used to int erpret this result as normal/abnormal . [facility] CenterYglvflpIZILJPVPPT1906-47-67 08:16:00 Test Item Value Reference Range Interpretation Comments Basophils (test code = 0.5 See_Comment [Aut omated message] The Basophils) system which ge nerated this result tra nsmitted reference range : <=1.0. The reference r yared was not used to int erpret this result as normal/abnormal . [facility] CenterKzukpccBIWIOCTDTB8026-34-00 08:16:00 Test Item Value Reference Range Interpretation Comments Eosinophils (test code = 1.2 See_Comment [A utomated message] The Eosinophils) system which ge nerated this result tra nsmitted reference range : <=4.0. The reference r yared was not used to int erpret this result as normal/abnormal . [facility] CenterZhaxfouMJJGXHUIES6484-30-80 08:16:00 Test Item Value Reference Range Interpretation Comments Monocytes (test code = Monocytes) 6.5 2.0-12.0 [facility] CenterOnmbzqpTAMTKDYVWW4237-32-71 08:16:00 Test Item Value Reference Range Interpretation Comments Lymphocytes (test code = Lymphocytes) 7.0 20.0-40.0 [facility] CenterCypdinzJVIAAULAKY2274-54-43 08:16:00 Test Item Value Reference Range Interpretation Comments Eosinophils # (test code 0.1 See_Comment [A utomated message] The = Eosinophils #) system whic h generated this result tra nsmitted reference range : <=0.5. The reference r yared was not used to int erpret this result as normal/abnormal . [facility] CenterHxihxhxEMXZQONNEU6197-19-89 08:16:00 Test Item Value Reference Range Interpretation Comments Monocytes # (test code 0.7 See_Comment [Aut omated message] The = Monocytes #) system which generated this result tra nsmitted reference range : <=0.8. The reference r yared was not used to int erpret this result as normal/abnormal . [facility] CenterKnozzpvSTBHXGBWKC7278-57-32 08:16:00 Test Item Value Reference Range Interpretation Comments Lymphocytes # (test code = Lymphocytes 0.7 1.0-5.5 #) [facility] CenterQgxpeuvREWUDMGZNW0807-69-72 08:16:00 Test Item Value Reference Range Interpretation Comments Neutrophils # (test code = Neutrophils 8.7 1.5-8.1 #) [facility]2019-06-29 08:16:00 Test Item Value Reference Range Interpretation Comments Vitamin B12 Lvl (test code = Vitamin 790 090-7424 B12 Lvl) [facility]CARD[facility] XIGXJBE7997-54-31 08:16:00 Test Item Value Reference Range Interpretation Comments Troponin-I (test code 0.04 See_Comment [Auto mated message] The = Troponin-I) system which g enerated this result transmit emerson reference range : <=0.40. The reference r yared was not used to interpr et this result as erinn l/abnormal. [facility]YourListen.com QCZAW6572-92-65 08:16:00 Test Item Value Reference Range Interpretation Comments Magnesium Lvl (test code = Magnesium 1.8 1.8-2.4 Lvl) [facility]2019-06-29 08:16:00 Test Item Value Reference Range Interpretation Comments eGFR (test code = eGFR) 3 [facility]2019-06-29 08:16:00 Test Item Value Reference Range Interpretation Comments A/G Ratio (test code = A/G Ratio) 0.6 1 0.7-1.6 [facility]2019-06-29 08:16:00 Test Item Value Reference Range Interpretation Comments B/C Ratio (test code = B/C Ratio) 4 1 6-25 [facility]2019-06-29 08:16:00 Test Item Value Reference Range Interpretation Comments Globulin (test code = Globulin) 3.4 2.7-4.2 [facility]2019-06-29 08:16:00 Test Item Value Reference Range Interpretation Comments Bili Total (test code = Bili Total) 0.4 0.2-1.3 [facility]2019-06-29 08:16:00 Test Item Value Reference Range Interpretation Comments AGAP (test code = AGAP) 18.3 10.0-20.0 [facility]2019-06-29 08:16:00 Test Item Value Reference Range Interpretation Comments Chloride Lvl (test code = Chloride Lvl) 93 95-109 [facility]2019-06-29 08:16:00 Test Item Value Reference Range Interpretation Comments CO2 (test code = CO2) 23 24-32 [facility]2019-06-29 08:16:00 Test Item Value Reference Range Interpretation Comments Calcium Lvl (test code = Calcium Lvl) 8.1 8.5-10.5 [facility]2019-06-29 08:16:00 Test Item Value Reference Range Interpretation Comments Glucose Lvl (test code = Glucose Lvl) 57 70-99 [facility]2019-06-29 08:16:00 Test Item Value Reference Range Interpretation Comments BUN (test code = BUN) 60 7-22 [facility]2019-06-29 08:16:00 Test Item Value Reference Range Interpretation Comments Sodium Lvl (test code = Sodium Lvl) 130 135-145 [facility]2019-06-29 08:16:00 Test Item Value Reference Range Interpretation Comments Creatinine Lvl (test code = Creatinine 15.90 0.50-1.40 Lvl) [facility]2019-06-29 08:16:00 Test Item Value Reference Range Interpretation Comments Potassium Lvl (test code = Potassium 4.3 3.5-5.1 Lvl) [facility]2019-06-29 08:16:00 Test Item Value Reference Range Interpretation Comments ALT (test code = ALT) 21 See_Comment [Auto mated message] The system which ge nerated this result transmit emerson reference range : <=65. The reference range was not used to interpr et this result as erinn l/abnormal. [facility]2019-06-29 08:16:00 Test Item Value Reference Range Interpretation Comments Alk Phos (test code = Alk Phos) 76 39-136 [facility]2019-06-29 08:16:00 Test Item Value Reference Range Interpretation Comments AST (test code = AST) 16 See_Comment [Auto mated message] The system which ge nerated this result transmit meerson reference range : <=37. The reference range was not used to interpr et this result as erinn l/abnormal. [facility]2019-06-29 08:16:00 Test Item Value Reference Range Interpretation Comments Total Protein (test code = Total 5.6 6.4-8.4 Protein) [facility]2019-06-29 08:16:00 Test Item Value Reference Range Interpretation Comments Albumin Lvl (test code = Albumin Lvl) 2.2 3.5-5.0 [facility] CenterBxgpmyzBEKYAHLFAX3084-39-63 08:16:00 Test Item Value Reference Range Interpretation Comments PTT (test code = PTT) 41.5 s 22.9-35.8 [facility] CenterCapbvgoECTFJJMWLL6589-42-34 08:16:00 Test Item Value Reference Range Interpretation Comments PT (test code = PT) 14.4 s 12.0-14.7 [facility] CenterJvkgpqeDKWVCZXXJL0392-28-39 08:16:00 Test Item Value Reference Range Interpretation Comments INR (test code = INR) 1.14 1 0.85-1.17 [facility] CenterQovogosOKAYRWTQJZ4751-00-62 08:16:00 Test Item Value Reference Range Interpretation Comments RDW (test code = RDW) 15.5 11.5-14.5 [facility] CenterRiyxihzAQOFCWNZSG7758-33-15 08:16:00 Test Item Value Reference Range Interpretation Comments Platelet (test code = Platelet) 139 133-450 [facility] CenterQjlajtwHGEOKVSIFF2955-48-13 08:16:00 Test Item Value Reference Range Interpretation Comments MCH (test code = MCH) 28.7 pg 27.0-31.0 [facility] CenterGuaqntfWGTZSGRGRM6998-28-16 08:16:00 Test Item Value Reference Range Interpretation Comments MCHC (test code = MCHC) 34.2 32.0-36.0 [facility] CenterFzcmyylZRWPNUADQL8120-89-50 08:16:00 Test Item Value Reference Range Interpretation Comments MCV (test code = MCV) 84.1 80.0-94.0 [facility] CenterDuscsikQTXKAVPYHB2538-75-64 08:16:00 Test Item Value Reference Range Interpretation Comments Hgb (test code = Hgb) 11.4 14.0-18.0 [facility] CenterIrphspvAHIOBDGSDM1314-56-92 08:16:00 Test Item Value Reference Range Interpretation Comments Hct (test code = Hct) 33.2 42.0-54.0 [facility] CenterHliioevTOSEBVNNRK7247-70-49 08:16:00 Test Item Value Reference Range Interpretation Comments WBC (test code = WBC) 10.2 3.7-10.4 [facility] CenterZzieyqlKBRCPRBNON8087-03-58 08:16:00 Test Item Value Reference Range Interpretation Comments RBC (test code = RBC) 3.95 4.70-6.10 [facility] CenterPgomivvISWXOZHWMJ8189-03-84 08:16:00 Test Item Value Reference Range Interpretation Comments MPV (test code = MPV) 8.3 7.4-10.4 [facility] CenterKvlohamQGVVYLXMDP6531-27-75 08:16:00 Test Item Value Reference Range Interpretation Comments Segs (test code = Segs) 84.8 45.0-75.0 [facility] CenterBwcueriCWKXTPHXIA4478-54-49 08:16:00 Test Item Value Reference Range Interpretation Comments Basophils # (test code 0.1 See_Comment [Aut omated message] The = Basophils #) system which generated this result tra nsmitted reference range : <=0.2. The reference r yared was not used to int erpret this result as normal/abnormal . [facility] CenterUcyxsecSWCAWPILIT2398-42-19 08:16:00 Test Item Value Reference Range Interpretation Comments Basophils (test code = 0.5 See_Comment [Aut omated message] The Basophils) system which ge nerated this result tra nsmitted reference range : <=1.0. The reference r yared was not used to int erpret this result as normal/abnormal . [facility] CenterEoympmxKZHDGQRKTP5431-22-99 08:16:00 Test Item Value Reference Range Interpretation Comments Eosinophils (test code = 1.2 See_Comment [A utomated message] The Eosinophils) system which ge nerated this result tra nsmitted reference range : <=4.0. The reference r yared was not used to int erpret this result as normal/abnormal . [facility] CenterNwnfgtlRNIIXYEHFP1541-14-87 08:16:00 Test Item Value Reference Range Interpretation Comments Monocytes (test code = Monocytes) 6.5 2.0-12.0 [facility] CenterKizaokpSBXNDJJHPA8781-80-30 08:16:00 Test Item Value Reference Range Interpretation Comments Lymphocytes (test code = Lymphocytes) 7.0 20.0-40.0 [facility] CenterZaodorgAZTILYEICN5196-63-23 08:16:00 Test Item Value Reference Range Interpretation Comments Eosinophils # (test code 0.1 See_Comment [A utomated message] The = Eosinophils #) system whic h generated this result tra nsmitted reference range : <=0.5. The reference r yared was not used to int erpret this result as normal/abnormal . [facility] CenterAocxdsaANSGBGBNPI4375-85-09 08:16:00 Test Item Value Reference Range Interpretation Comments Monocytes # (test code 0.7 See_Comment [Aut omated message] The = Monocytes #) system which generated this result tra nsmitted reference range : <=0.8. The reference r yared was not used to int erpret this result as normal/abnormal . [facility] HospitalZrynxasCSPMOEYSCI0552-05-32 08:16:00 Test Item Value Reference Range Interpretation Comments Lymphocytes # (test code = Lymphocytes 0.7 1.0-5.5 #) [facility] HospitalVfxthycERWXBNUGAE9352-68-08 08:16:00 Test Item Value Reference Range Interpretation Comments Neutrophils # (test code = Neutrophils 8.7 1.5-8.1 #) [facility] IMHTX3319-17-95 08:16:00 Test Item Value Reference Range Interpretation Comments Vitamin B12 Lvl (test code = Vitamin 689 133-2108 B12 Lvl) [facility]CARD[facility]AC HZIHFET6353-21-97 08:16:00 Test Item Value Reference Range Interpretation Comments Troponin-I (test code 0.04 See_Comment [Auto mated message] The = Troponin-I) system which g enerated this result transmit emerson reference range : <=0.40. The reference r yared was not used to interpr et this result as erinn l/abnormal. [facility]2019-06-29 08:16:00 Test Item Value Reference Range Interpretation Comments Magnesium Lvl (test code = Magnesium 1.8 1.8-2.4 Lvl) [facility]2019-06-29 08:16:00 Test Item Value Reference Range Interpretation Comments eGFR (test code = eGFR) 3 [facility]2019-06-29 08:16:00 Test Item Value Reference Range Interpretation Comments A/G Ratio (test code = A/G Ratio) 0.6 1 0.7-1.6 [facility]2019-06-29 08:16:00 Test Item Value Reference Range Interpretation Comments B/C Ratio (test code = B/C Ratio) 4 1 6-25 [facility]2019-06-29 08:16:00 Test Item Value Reference Range Interpretation Comments Globulin (test code = Globulin) 3.4 2.7-4.2 [facility]2019-06-29 08:16:00 Test Item Value Reference Range Interpretation Comments Bili Total (test code = Bili Total) 0.4 0.2-1.3 [facility]2019-06-29 08:16:00 Test Item Value Reference Range Interpretation Comments AGAP (test code = AGAP) 18.3 10.0-20.0 [facility]2019-06-29 08:16:00 Test Item Value Reference Range Interpretation Comments Chloride Lvl (test code = Chloride Lvl) 93 95-109 [facility]2019-06-29 08:16:00 Test Item Value Reference Range Interpretation Comments CO2 (test code = CO2) 23 24-32 [facility]2019-06-29 08:16:00 Test Item Value Reference Range Interpretation Comments Calcium Lvl (test code = Calcium Lvl) 8.1 8.5-10.5 [facility]2019-06-29 08:16:00 Test Item Value Reference Range Interpretation Comments Glucose Lvl (test code = Glucose Lvl) 57 70-99 [facility]2019-06-29 08:16:00 Test Item Value Reference Range Interpretation Comments BUN (test code = BUN) 60 7-22 [facility]2019-06-29 08:16:00 Test Item Value Reference Range Interpretation Comments Sodium Lvl (test code = Sodium Lvl) 130 135-145 [facility]2019-06-29 08:16:00 Test Item Value Reference Range Interpretation Comments Creatinine Lvl (test code = Creatinine 15.90 0.50-1.40 Lvl) [facility]2019-06-29 08:16:00 Test Item Value Reference Range Interpretation Comments Potassium Lvl (test code = Potassium 4.3 3.5-5.1 Lvl) [facility] [facility] 08:[facility]:00 Test Item Value Reference Range Interpretation Comments ALT (test code = ALT) 21 See_Comment [Auto mated message] The system which ge nerated this result transmit emerson reference range : <=65. The reference range was not used to interpr et this result as erinn l/abnormal. [facility]2019-06-29 08:16:00 Test Item Value Reference Range Interpretation Comments Alk Phos (test code = Alk Phos) 76 39-136 [facility]2019-06-29 08:16:00 Test Item Value Reference Range Interpretation Comments AST (test code = AST) 16 See_Comment [Auto mated message] The system which ge nerated this result transmit emerson reference range : <=37. The reference range was not used to interpr et this result as erinn l/abnormal. [facility]2019-06-29 08:16:00 Test Item Value Reference Range Interpretation Comments Total Protein (test code = Total 5.6 6.4-8.4 Protein) [facility]2019-06-29 08:16:00 Test Item Value Reference Range Interpretation Comments Albumin Lvl (test code = Albumin Lvl) 2.2 3.5-5.0 [facility]IoobvzeQZPJQTIVYM3552-74-73 08:16:00 Test Item Value Reference Range Interpretation Comments PTT (test code = PTT) 41.5 s 22.9-35.8 [facility] CenterEropecxWFBICJQUBC7023-27-21 08:16:00 Test Item Value Reference Range Interpretation Comments PT (test code = PT) 14.4 s 12.0-14.7 [facility] CenterNbmjloiQKQILZAGOH0426-17-22 08:16:00 Test Item Value Reference Range Interpretation Comments INR (test code = INR) 1.14 1 0.85-1.17 [facility] CenterEzhnoxqYIGMBUSWND8716-88-99 08:16:00 Test Item Value Reference Range Interpretation Comments RDW (test code = RDW) 15.5 11.5-14.5 [facility] CenterOoenbjgEAMFZSNYJV0136-25-71 08:16:00 Test Item Value Reference Range Interpretation Comments Platelet (test code = Platelet) 139 133-450 [facility] CenterMrqtrruCKUGZWHNYY9922-83-99 08:16:00 Test Item Value Reference Range Interpretation Comments MCH (test code = MCH) 28.7 pg 27.0-31.0 [facility] CenterVaxgrotABXBKIGJKZ1186-01-15 08:16:00 Test Item Value Reference Range Interpretation Comments MCHC (test code = MCHC) 34.2 32.0-36.0 [facility] CenterJfboramTPJEJMGXDG9776-46-38 08:16:00 Test Item Value Reference Range Interpretation Comments MCV (test code = MCV) 84.1 80.0-94.0 [facility] CenterOblqtbxNWXTXWOEMS8112-94-93 08:16:00 Test Item Value Reference Range Interpretation Comments Hgb (test code = Hgb) 11.4 14.0-18.0 [facility] CenterIrgcawcCTBXQBRWCE7501-60-69 08:16:00 Test Item Value Reference Range Interpretation Comments Hct (test code = Hct) 33.2 42.0-54.0 [facility] CenterBcacsvfOWIAIMPVEL9602-10-47 08:16:00 Test Item Value Reference Range Interpretation Comments WBC (test code = WBC) 10.2 3.7-10.4 [facility] CenterBflkwubFJMIUPTBJL9479-12-95 08:16:00 Test Item Value Reference Range Interpretation Comments RBC (test code = RBC) 3.95 4.70-6.10 [facility] CenterMeujwprHHOUVOELMQ4564-09-16 08:16:00 Test Item Value Reference Range Interpretation Comments MPV (test code = MPV) 8.3 7.4-10.4 [facility] CenterTpqpjzsWPBAQIMPDH6543-51-43 08:16:00 Test Item Value Reference Range Interpretation Comments Segs (test code = Segs) 84.8 45.0-75.0 [facility] CenterJvjlspmCJPRHBLDKN1420-99-72 08:16:00 Test Item Value Reference Range Interpretation Comments Basophils # (test code 0.1 See_Comment [Aut omated message] The = Basophils #) system which generated this result tra nsmitted reference range : <=0.2. The reference r yared was not used to int erpret this result as normal/abnormal . [facility] CenterDhbcfffTOIBHDDBCU2418-55-24 08:16:00 Test Item Value Reference Range Interpretation Comments Basophils (test code = 0.5 See_Comment [Aut omated message] The Basophils) system which ge nerated this result tra nsmitted reference range : <=1.0. The reference r yared was not used to int erpret this result as normal/abnormal . [facility] CenterCtcjanhCDEFFOGHFC6684-29-19 08:16:00 Test Item Value Reference Range Interpretation Comments Eosinophils (test code = 1.2 See_Comment [A utomated message] The Eosinophils) system which ge nerated this result tra nsmitted reference range : <=4.0. The reference r yared was not used to int erpret this result as normal/abnormal . [facility] CenterQamislaRKDXFFEQWU6304-67-99 08:16:00 Test Item Value Reference Range Interpretation Comments Monocytes (test code = Monocytes) 6.5 2.0-12.0 [facility] CenterRvepvcdGCZJJDMLFJ6723-96-75 08:16:00 Test Item Value Reference Range Interpretation Comments Lymphocytes (test code = Lymphocytes) 7.0 20.0-40.0 [facility] CenterHbzscdzPRYWXTXJRK6855-73-37 08:16:00 Test Item Value Reference Range Interpretation Comments Eosinophils # (test code 0.1 See_Comment [A utomated message] The = Eosinophils #) system whic h generated this result tra nsmitted reference range : <=0.5. The reference r yared was not used to int erpret this result as normal/abnormal . [facility] CenterWtfypmuEDJNCKKTMM1364-77-99 08:16:00 Test Item Value Reference Range Interpretation Comments Monocytes # (test code 0.7 See_Comment [Aut omated message] The = Monocytes #) system which generated this result tra nsmitted reference range : <=0.8. The reference r yared was not used to int erpret this result as normal/abnormal . [facility] CenterKagblhhTTUNEKIHJZ5747-93-65 08:16:00 Test Item Value Reference Range Interpretation Comments Lymphocytes # (test code = Lymphocytes 0.7 1.0-5.5 #) [facility] CenterJpbhdroJHVYPABFTF9176-15-07 08:16:00 Test Item Value Reference Range Interpretation Comments Neutrophils # (test code = Neutrophils 8.7 1.5-8.1 #) [facility] ZWQPI5330-99-46 04:17:00 Test Item Value Reference Range Interpretation Comments Lactic Acid Lvl (test code = Lactic 0.3 0.5-2.2 Acid Lvl) [facility] QPARC8339-00-04 04:17:00 Test Item Value Reference Range Interpretation Comments Lactic Acid Lvl (test code = Lactic 0.3 0.5-2.2 Acid Lvl) [facility] ZDURF0925-29-97 04:17:00 Test Item Value Reference Range Interpretation Comments Lactic Acid Lvl (test code = Lactic 0.3 0.5-2.2 Acid Lvl) [facility] AEPRQ1374-87-09 04:17:00 Test Item Value Reference Range Interpretation Comments Lactic Acid Lvl (test code = Lactic 0.3 0.5-2.2 Acid Lvl) [facility]CARDIAC IMVXDEQ4381-96-85 02:25:00 Test Item Value Reference Range Interpretation Comments Troponin-I (test code 0.03 See_Comment [Auto mated message] The = Troponin-I) system which g enerated this result transmit emerson reference range : <=0.40. The reference r yared was not used to interpr et this result as erinn l/abnormal. [facility]AqminkvNLWXDS6355-27-56 02:25:00 Test Item Value Reference Range Interpretation Comments CHD Risk (test code = CHD Risk) 3.10 1 4.00-7.30 [facility] HospitalJwigcnnNRITWM1343-09-98 02:25:00 Test Item Value Reference Range Interpretation Comments VLDL (test code = VLDL) 21 1 [facility] HospitalIogcjrrKWZDYW2597-52-99 02:25:00 Test Item Value Reference Range Interpretation Comments HDL (test code = HDL) 58 [facility] HospitalHmiydasDCSIFZ7376-67-55 02:25:00 Test Item Value Reference Range Interpretation Comments LDL (Calculated) (test code = LDL 101 (Calculated)) [facility] HospitalGewjjkcZCFGST8730-59-63 02:25:00 Test Item Value Reference Range Interpretation Comments Chol (test code = Chol) 180 [facility] HospitalLcazbvoXXTAZI2821-71-95 02:25:00 Test Item Value Reference Range Interpretation Comments Trig (test code = Trig) 103 [facility] HospitalannSPECIAL ZNBCCLTFQ6441-35-55 02:25:00 Test Item Value Reference Range Interpretation Comments Hgb A1C (test code = Hgb A1C) 4.0 [facility]AC NVCFBHL2666-43-43 02:25:00 Test Item Value Reference Range Interpretation Comments Troponin-I (test code 0.03 See_Comment [Auto mated message] The = Troponin-I) system which g enerated this result transmit emerson reference range : <=0.40. The reference r yared was not used to interpr et this result as erinn l/abnormal. [facility] HospitalKcvsogqXZDGZS0382-09-67 02:25:00 Test Item Value Reference Range Interpretation Comments CHD Risk (test code = CHD Risk) 3.10 1 4.00-7.30 [facility] HospitalAqdvtbwSHWCFS8440-98-69 02:25:00 Test Item Value Reference Range Interpretation Comments VLDL (test code = VLDL) 21 1 [facility] HospitalSdfgylrTGXJOJ6674-81-77 02:25:00 Test Item Value Reference Range Interpretation Comments HDL (test code = HDL) 58 [facility] HospitalEonkkdiJTZUJZ3787-95-86 02:25:00 Test Item Value Reference Range Interpretation Comments LDL (Calculated) (test code = LDL 101 (Calculated)) [facility] HospitalWhevnvnWURCMK6815-63-79 02:25:00 Test Item Value Reference Range Interpretation Comments Chol (test code = Chol) 180 [facility] HospitalRkyptcoQBLZMT1446-58-39 02:25:00 Test Item Value Reference Range Interpretation Comments Trig (test code = Trig) 103 [facility] IENYNAZNF3018-66-44 02:25:00 Test Item Value Reference Range Interpretation Comments Hgb A1C (test code = Hgb A1C) 4.0 [facility] HospitalCARD[facility]AC PCORTXA6796-28-31 02:25:00 Test Item Value Reference Range Interpretation Comments Troponin-I (test code 0.03 See_Comment [Auto mated message] The = Troponin-I) system which g enerated this result transmit emerson reference range : <=0.40. The reference r yared was not used to interpr et this result as erinn l/abnormal. [facility] DallasHyupefdSWDRDS8186-00-30 02:25:00 Test Item Value Reference Range Interpretation Comments CHD Risk (test code = CHD Risk) 3.10 1 4.00-7.30 [facility] DallasOcddmnkNWMKDV4821-36-28 02:25:00 Test Item Value Reference Range Interpretation Comments VLDL (test code = VLDL) 21 1 [facility] HospitalKhfyrgbYBBQCV2002-46-00 02:25:00 Test Item Value Reference Range Interpretation Comments HDL (test code = HDL) 58 [facility] DallasRmibzkgSGKSSO6946-62-51 02:25:00 Test Item Value Reference Range Interpretation Comments LDL (Calculated) (test code = LDL 101 (Calculated)) [facility] DallasXvpqfgeESCJKW3515-49-43 02:25:00 Test Item Value Reference Range Interpretation Comments Chol (test code = Chol) 180 [facility] DallasJsrtexpBJWODM9052-99-33 02:25:00 Test Item Value Reference Range Interpretation Comments Trig (test code = Trig) 103 [facility] FSZKZEPGN2373-58-68 02:25:00 Test Item Value Reference Range Interpretation Comments Hgb A1C (test code = Hgb A1C) 4.0 [facility] BVKBPDT2743-63-61 02:25:00 Test Item Value Reference Range Interpretation Comments Troponin-I (test code 0.03 See_Comment [Auto mated message] The = Troponin-I) system which g enerated this result transmit emerson reference range : <=0.40. The reference r yared was not used to interpr et this result as erinn l/abnormal. [facility] HospitalUuvibzuBIUGQI9204-81-46 02:25:00 Test Item Value Reference Range Interpretation Comments CHD Risk (test code = CHD Risk) 3.10 1 4.00-7.30 [facility] HospitalOjixfykOQDZKY7097-52-55 02:25:00 Test Item Value Reference Range Interpretation Comments VLDL (test code = VLDL) 21 1 [facility] HospitalZvkudbcBRFMTE8611-62-96 02:25:00 Test Item Value Reference Range Interpretation Comments HDL (test code = HDL) 58 [facility] HospitalKoocthkFYFFFU8063-40-52 02:25:00 Test Item Value Reference Range Interpretation Comments LDL (Calculated) (test code = LDL 101 (Calculated)) [facility] DallasGsfsxunXIDNKD2580-81-48 02:25:00 Test Item Value Reference Range Interpretation Comments Chol (test code = Chol) 180 [facility] HospitalRizmhxfSMLOCZ1763-40-05 02:25:00 Test Item Value Reference Range Interpretation Comments Trig (test code = Trig) 103 [facility] DYLEWDBHK7194-16-01 02:25:00 Test Item Value Reference Range Interpretation Comments Hgb A1C (test code = Hgb A1C) 4.0 [facility] HospitalCHEM ISHDV0078-32-66 12:41:00 Test Item Value Reference Range Interpretation Comments Phosphorus (test code = Phosphorus) 6.1 2.5-4.5 [facility]QpsfnvxUFILUKDLXFPC6028-55-25 12:41:00 Test Item Value Reference Range Interpretation Comments AGAP (test code = AGAP) 14.8 10.0-20.0 [facility]OlcxhujPJUNJZGSPSHO6820-55-01 12:41:00 Test Item Value Reference Range Interpretation Comments eGFR (test code = eGFR) 4 [facility]ZheqyyzMQFPUFHZWAZP2445-67-01 12:41:00 Test Item Value Reference Range Interpretation Comments CO2 (test code = CO2) 27 24-32 [facility]iscoZwmoeqrISGJEEKLHXMV4117-27-31 12:41:00 Test Item Value Reference Range Interpretation Comments Calcium Lvl (test code = Calcium Lvl) 7.9 8.5-10.5 [facility]iscoNeodjjgYEQZOCVXZRDF9032-15-41 12:41:00 Test Item Value Reference Range Interpretation Comments Creatinine Lvl (test code = Creatinine 12.90 0.50-1.40 Lvl) [facility]YvabnmiKVMNTVWQGJIL1757-00-97 12:41:00 Test Item Value Reference Range Interpretation Comments BUN (test code = BUN) 60 7-22 [facility] HospitalEcrsvyrZUZDKLCEIWQF3898-51-82 12:41:00 Test Item Value Reference Range Interpretation Comments Sodium Lvl (test code = Sodium Lvl) 139 135-145 [facility] HospitalYmftafdIHKSZWPGUROC6338-92-89 12:41:00 Test Item Value Reference Range Interpretation Comments Glucose Lvl (test code = Glucose Lvl) 93 70-99 [facility] HospitalVebfjvkZOGALLFYWQRM6160-22-98 12:41:00 Test Item Value Reference Range Interpretation Comments Chloride Lvl (test code = Chloride Lvl) 102 95-109 [facility] HospitalEwujvuzJEOADMNHMIKA9220-68-22 12:41:00 Test Item Value Reference Range Interpretation Comments Potassium Lvl (test code = Potassium 4.8 3.5-5.1 Lvl) [facility] CenterQvbvaxxDKTJDZLGPV8923-95-02 12:41:00 Test Item Value Reference Range Interpretation Comments MCHC (test code = MCHC) 35.3 32.0-36.0 [facility] CenterEhfrarfDGDKLCXICN7635-68-03 12:41:00 Test Item Value Reference Range Interpretation Comments Hgb (test code = Hgb) 7.8 14.0-18.0 [facility] CenterFrggsoaRSYSOQRIFY9469-34-55 12:41:00 Test Item Value Reference Range Interpretation Comments Hct (test code = Hct) 22.0 42.0-54.0 [facility] CenterNrqohxpKHYMPRUHDV5133-43-47 12:41:00 Test Item Value Reference Range Interpretation Comments RBC (test code = RBC) 2.68 4.70-6.10 [facility] CenterEqrgqmaRGEUFNXWUH0176-38-34 12:41:00 Test Item Value Reference Range Interpretation Comments WBC (test code = WBC) 4.4 3.7-10.4 [facility] CenterWbokzhuDUNHNZLZVO3094-05-29 12:41:00 Test Item Value Reference Range Interpretation Comments RDW (test code = RDW) 14.5 11.5-14.5 [facility] CenterWuwmxhvUVGZMQBCEW4518-82-40 12:41:00 Test Item Value Reference Range Interpretation Comments MCV (test code = MCV) 82.1 80.0-94.0 [facility] CenterHuzxlufOFRFYYGFAA1064-89-58 12:41:00 Test Item Value Reference Range Interpretation Comments MCH (test code = MCH) 29.0 pg 27.0-31.0 [facility] CenterBeunupkIFDXSSKRED1349-06-64 12:41:00 Test Item Value Reference Range Interpretation Comments Platelet (test code = Platelet) 128 133-450 [facility] CenterTvpzlyfOFAYHLIXAF2839-80-73 12:41:00 Test Item Value Reference Range Interpretation Comments MPV (test code = MPV) 7.3 7.4-10.4 [facility] CenterYonsjgdKFUXODERVU9131-06-12 12:41:00 Test Item Value Reference Range Interpretation Comments Monocytes # (test code 0.4 See_Comment [Aut omated message] The = Monocytes #) system which generated this result tra nsmitted reference range : <=0.8. The reference r yared was not used to int erpret this result as normal/abnormal . [facility] CenterBqfcnwhHSDNVGGOKM4070-16-04 12:41:00 Test Item Value Reference Range Interpretation Comments Eosinophils # (test code 0.2 See_Comment [A utomated message] The = Eosinophils #) system wh h generated this result tra nsmitted reference range : <=0.5. The reference r yared was not used to int erpret this result as normal/abnormal . [facility] CenterFxwpkxdTSGSHTQBQL8158-32-27 12:41:00 Test Item Value Reference Range Interpretation Comments Monocytes (test code = Monocytes) 9.7 2.0-12.0 [facility] CenterXdztkwlYIYILRKPRF7004-24-74 12:41:00 Test Item Value Reference Range Interpretation Comments Eosinophils (test code = 3.7 See_Comment [A utomated message] The Eosinophils) system which ge nerated this result tra nsmitted reference range : <=4.0. The reference r yared was not used to int erpret this result as normal/abnormal . [facility] CenterGaggbggSDGEQSUZGF0293-58-49 12:41:00 Test Item Value Reference Range Interpretation Comments Basophils (test code = 0.8 See_Comment [Aut omated message] The Basophils) system which ge nerated this result tra nsmitted reference range : <=1.0. The reference r yared was not used to int erpret this result as normal/abnormal . [facility] CenterGgqzplbAKQRKMRLRI4817-01-13 12:41:00 Test Item Value Reference Range Interpretation Comments Neutrophils # (test code = Neutrophils 3.0 1.5-8.1 #) [facility]JkdpilkELTUZHPZGO0043-45-70 12:41:00 Test Item Value Reference Range Interpretation Comments Lymphocytes # (test code = Lymphocytes 0.8 1.0-5.5 #) [facility] CenterCbngmkrZGIYTDBUUV6671-94-31 12:41:00 Test Item Value Reference Range Interpretation Comments Segs (test code = Segs) 67.6 45.0-75.0 [facility] HospitalEqjktihSEDNEVOXHH8618-21-60 12:41:00 Test Item Value Reference Range Interpretation Comments Lymphocytes (test code = Lymphocytes) 18.2 20.0-40.0 [facility]CHE[facility] MZCXM6623-07-00 12:41:00 Test Item Value Reference Range Interpretation Comments Phosphorus (test code = Phosphorus) 6.1 2.5-4.5 [facility] HospitalLceifftHTSSAAZYWNYA2217-67-28 12:41:00 Test Item Value Reference Range Interpretation Comments AGAP (test code = AGAP) 14.8 10.0-20.0 [facility] HospitalRbbcrrnNXGDECSJEIOD2218-64-20 12:41:00 Test Item Value Reference Range Interpretation Comments eGFR (test code = eGFR) 4 [facility] HospitalNvkyreaTJUZXHXJIZUC8511-64-65 12:41:00 Test Item Value Reference Range Interpretation Comments CO2 (test code = CO2) 27 24-32 [facility] HospitalUrzmafrQKUPWSNKKLCM4810-11-65 12:41:00 Test Item Value Reference Range Interpretation Comments Calcium Lvl (test code = Calcium Lvl) 7.9 8.5-10.5 [facility] HospitalNfrvbidIITDTPFLBQFH7522-48-38 12:41:00 Test Item Value Reference Range Interpretation Comments Creatinine Lvl (test code = Creatinine 12.90 0.50-1.40 Lvl) [facility] HospitalKwaxueoZCJLOQOAZUAM5319-20-70 12:41:00 Test Item Value Reference Range Interpretation Comments BUN (test code = BUN) 60 7-22 [facility] HospitalTazffemXWKQUIUQGYWC2405-00-47 12:41:00 Test Item Value Reference Range Interpretation Comments Sodium Lvl (test code = Sodium Lvl) 139 135-145 [facility] HospitalAdvsxanHWHKWGPAAAXU0101-65-99 12:41:00 Test Item Value Reference Range Interpretation Comments Glucose Lvl (test code = Glucose Lvl) 93 70-99 [facility] HospitalKhoplpgHHNZENPQQZSV6001-86-31 12:41:00 Test Item Value Reference Range Interpretation Comments Chloride Lvl (test code = Chloride Lvl) 102 95-109 [facility] HospitalOtrnwbrCHUVYXMGWOIE3930-04-86 12:41:00 Test Item Value Reference Range Interpretation Comments Potassium Lvl (test code = Potassium 4.8 3.5-5.1 Lvl) [facility] HospitalNmcdnohRRLBXKOVPH6533-61-80 12:41:00 Test Item Value Reference Range Interpretation Comments MCHC (test code = MCHC) 35.3 32.0-36.0 [facility] CenterGwbentiJOGXHMNVPJ0412-68-41 12:41:00 Test Item Value Reference Range Interpretation Comments Hgb (test code = Hgb) 7.8 14.0-18.0 [facility] CenterHqblfaaWGEPGPWNBR8758-76-07 12:41:00 Test Item Value Reference Range Interpretation Comments Hct (test code = Hct) 22.0 42.0-54.0 [facility] CenterVtetypgLDYOLUZKMC0200-29-64 12:41:00 Test Item Value Reference Range Interpretation Comments RBC (test code = RBC) 2.68 4.70-6.10 [facility] HospitalBxtwpwnQLJNQLTVOC4698-15-72 12:41:00 Test Item Value Reference Range Interpretation Comments WBC (test code = WBC) 4.4 3.7-10.4 [facility] CenterPnbvdwtUKVUGKDFGV7966-48-20 12:41:00 Test Item Value Reference Range Interpretation Comments RDW (test code = RDW) 14.5 11.5-14.5 [facility] CenterZphhtfwOHVVABZIDY8189-84-15 12:41:00 Test Item Value Reference Range Interpretation Comments MCV (test code = MCV) 82.1 80.0-94.0 [facility] CenterEuirbiyKGPZFTDRTP3319-75-80 12:41:00 Test Item Value Reference Range Interpretation Comments MCH (test code = MCH) 29.0 pg 27.0-31.0 [facility] CenterLbxtbeuRJCPCHTXKV8284-88-33 12:41:00 Test Item Value Reference Range Interpretation Comments Platelet (test code = Platelet) 128 133-450 [facility] CenterIqhovdnNOZOKADLDI6042-27-83 12:41:00 Test Item Value Reference Range Interpretation Comments MPV (test code = MPV) 7.3 7.4-10.4 [facility] CenterAxifcsaRIKRYDJCOD7852-64-72 12:41:00 Test Item Value Reference Range Interpretation Comments Monocytes # (test code 0.4 See_Comment [Aut omated message] The = Monocytes #) system which generated this result tra nsmitted reference range : <=0.8. The reference r yared was not used to int erpret this result as normal/abnormal . [facility] CenterUawnaluVEKEBAFGWM7874-48-97 12:41:00 Test Item Value Reference Range Interpretation Comments Eosinophils # (test code 0.2 See_Comment [A utomated message] The = Eosinophils #) system [facility] h generated this result tra nsmitted reference range : <=0.5. The reference r yared was not used to int erpret this result as normal/abnormal . [facility] CenterCctdszyANYBVKZOSK5509-38-75 12:41:00 Test Item Value Reference Range Interpretation Comments Monocytes (test code = Monocytes) 9.7 2.0-12.0 [facility] CenterPvroddmSDLSDFIOMM1409-76-19 12:41:00 Test Item Value Reference Range Interpretation Comments Eosinophils (test code = 3.7 See_Comment [A utomated message] The Eosinophils) system which ge nerated this result tra nsmitted reference range : <=4.0. The reference r yared was not used to int erpret this result as normal/abnormal . [facility] CenterOycpltzMGQAJWNTXV7451-68-13 12:41:00 Test Item Value Reference Range Interpretation Comments Basophils (test code = 0.8 See_Comment [Aut omated message] The Basophils) system which ge nerated this result tra nsmitted reference range : <=1.0. The reference r yared was not used to int erpret this result as normal/abnormal . [facility] CenterZqtumtiKHOYRVPBKA0055-12-58 12:41:00 Test Item Value Reference Range Interpretation Comments Neutrophils # (test code = Neutrophils 3.0 1.5-8.1 #) [facility] CenterNmizmohQKWXASUYXS2083-94-85 12:41:00 Test Item Value Reference Range Interpretation Comments Lymphocytes # (test code = Lymphocytes 0.8 1.0-5.5 #) [facility] CenterGpnjfgbJVZQMIJETV7278-64-69 12:41:00 Test Item Value Reference Range Interpretation Comments Segs (test code = Segs) 67.6 45.0-75.0 [facility] CenterAniopizOADBKWLFWY2186-35-15 12:41:00 Test Item Value Reference Range Interpretation Comments Lymphocytes (test code = Lymphocytes) 18.2 20.0-40.0 [facility]CHEM NFZVV5395-91-43 12:41:00 Test Item Value Reference Range Interpretation Comments Phosphorus (test code = Phosphorus) 6.1 2.5-4.5 [facility] HospitalOmajrjrPBQQIFCMKRUC5619-48-64 12:41:00 Test Item Value Reference Range Interpretation Comments AGAP (test code = AGAP) 14.8 10.0-20.0 [facility] HospitalKrypegjKNDRFLNWYYQL2089-51-28 12:41:00 Test Item Value Reference Range Interpretation Comments eGFR (test code = eGFR) 4 [facility] HospitalBywilfrZAIYKQIRLMGW7134-30-96 12:41:00 Test Item Value Reference Range Interpretation Comments CO2 (test code = CO2) 27 24-32 [facility] HospitalDkpearnYYFBYRGBHRYU4870-60-20 12:41:00 Test Item Value Reference Range Interpretation Comments Calcium Lvl (test code = Calcium Lvl) 7.9 8.5-10.5 [facility] HospitalWkhqsksYBYRRFQAHRMC9757-93-66 12:41:00 Test Item Value Reference Range Interpretation Comments Creatinine Lvl (test code = Creatinine 12.90 0.50-1.40 Lvl) [facility] HospitalDdfmbygGDDAYHZZKJEZ7974-63-62 12:41:00 Test Item Value Reference Range Interpretation Comments BUN (test code = BUN) 60 7-22 [facility] HospitalDkmibfiJHYBECTHDQAG1899-88-67 12:41:00 Test Item Value Reference Range Interpretation Comments Sodium Lvl (test code = Sodium Lvl) 139 135-145 [facility] HospitalIrevazyVYHPHITNKNXN8515-76-31 12:41:00 Test Item Value Reference Range Interpretation Comments Glucose Lvl (test code = Glucose Lvl) 93 70-99 [facility] HospitalUprmivaAQBBOZUFRPUM4387-87-69 12:41:00 Test Item Value Reference Range Interpretation Comments Chloride Lvl (test code = Chloride Lvl) 102 95-109 [facility] HospitalVmxbwnkTOYKHJVIDYKR9387-26-75 12:41:00 Test Item Value Reference Range Interpretation Comments Potassium Lvl (test code = Potassium 4.8 3.5-5.1 Lvl) [facility]GnbgehrFHTFSLODUS3829-50-06 12:41:00 Test Item Value Reference Range Interpretation Comments MCHC (test code = MCHC) 35.3 32.0-36.0 [facility] HospitalMafxudcRRMXMZORUP1312-17-69 12:41:00 Test Item Value Reference Range Interpretation Comments Hgb (test code = Hgb) 7.8 14.0-18.0 [facility] CenterTbqeirrBZVVXAJWCD2895-28-59 12:41:00 Test Item Value Reference Range Interpretation Comments Hct (test code = Hct) 22.0 42.0-54.0 [facility] CenterNvtksqrWWIRRBYKIF0137-69-13 12:41:00 Test Item Value Reference Range Interpretation Comments RBC (test code = RBC) 2.68 4.70-6.10 [facility] CenterVopupklUIXKLNTUTP4804-90-44 12:41:00 Test Item Value Reference Range Interpretation Comments WBC (test code = WBC) 4.4 3.7-10.4 [facility] CenterAxdwftzFERIMQNXUC7185-72-88 12:41:00 Test Item Value Reference Range Interpretation Comments RDW (test code = RDW) 14.5 11.5-14.5 [facility] CenterZuxojbfHAVUQSBZEW8459-84-89 12:41:00 Test Item Value Reference Range Interpretation Comments MCV (test code = MCV) 82.1 80.0-94.0 [facility] CenterGjoqaokQIUFYNQLQO7909-56-22 12:41:00 Test Item Value Reference Range Interpretation Comments MCH (test code = MCH) 29.0 pg 27.0-31.0 [facility] CenterFbkncuuDXZOJISLYS2118-64-36 12:41:00 Test Item Value Reference Range Interpretation Comments Platelet (test code = Platelet) 128 133-450 [facility] CenterBhsnareSSXSGKCSSP5398-42-38 12:41:00 Test Item Value Reference Range Interpretation Comments MPV (test code = MPV) 7.3 7.4-10.4 [facility] CenterPsyycoyRTPSSQBXDS4434-51-28 12:41:00 Test Item Value Reference Range Interpretation Comments Monocytes # (test code 0.4 See_Comment [Aut omated message] The = Monocytes #) system which generated this result tra nsmitted reference range : <=0.8. The reference r yared was not used to int erpret this result as normal/abnormal . [facility] CenterVihfgwdDSMSFVEIDY8401-54-02 12:41:00 Test Item Value Reference Range Interpretation Comments Eosinophils # (test code 0.2 See_Comment [A utomated message] The = Eosinophils #) system whic h generated this result tra nsmitted reference range : <=0.5. The reference r yared was not used to int erpret this result as normal/abnormal . [facility] CenterSpsneejRYYYOQVUCK1499-73-29 12:41:00 Test Item Value Reference Range Interpretation Comments Monocytes (test code = Monocytes) 9.7 2.0-12.0 [facility] CenterXfjsmafXMDRIEWMGW3084-21-64 12:41:00 Test Item Value Reference Range Interpretation Comments Eosinophils (test code = 3.7 See_Comment [A utomated message] The Eosinophils) system which ge nerated this result tra nsmitted reference range : <=4.0. The reference r yared was not used to int erpret this result as normal/abnormal . [facility] CenterHfbsiitZTLQDUMLTJ6842-30-52 12:41:00 Test Item Value Reference Range Interpretation Comments Basophils (test code = 0.8 See_Comment [Aut omated message] The Basophils) system which ge nerated this result tra nsmitted reference range : <=1.0. The reference r yared was not used to int erpret this result as normal/abnormal . [facility] CenterQzhuzxpKYACMWCWKQ1961-97-20 12:41:00 Test Item Value Reference Range Interpretation Comments Neutrophils # (test code = Neutrophils 3.0 1.5-8.1 #) [facility] CenterJkagipqKCSYDKCYFS7585-62-64 12:41:00 Test Item Value Reference Range Interpretation Comments Lymphocytes # (test code = Lymphocytes 0.8 1.0-5.5 #) [facility] CenterBowcubfLGLVGHYEGE4859-01-36 12:41:00 Test Item Value Reference Range Interpretation Comments Segs (test code = Segs) 67.6 45.0-75.0 [facility]HzcsdxaVQDKZYDBTQ9967-22-25 12:41:00 Test Item Value Reference Range Interpretation Comments Lymphocytes (test code = Lymphocytes) 18.2 20.0-40.0 [facility]2018-10-15 12:41:00 Test Item Value Reference Range Interpretation Comments Phosphorus (test code = Phosphorus) 6.1 2.5-4.5 [facility]lmQEJLBTOWCQRE4414-65-57 12:41:00 Test Item Value Reference Range Interpretation Comments AGAP (test code = AGAP) 14.8 10.0-20.0 [facility] HospitalLrotiqrJKTTZFNWIWNU6161-57-29 12:41:00 Test Item Value Reference Range Interpretation Comments eGFR (test code = eGFR) 4 [facility] HospitalZyikvvaZJDYSMVUIMNZ3741-37-10 12:41:00 Test Item Value Reference Range Interpretation Comments CO2 (test code = CO2) 27 24-32 [facility] HospitalShudqdzBCRBXWFRTCUZ3338-41-59 12:41:00 Test Item Value Reference Range Interpretation Comments Calcium Lvl (test code = Calcium Lvl) 7.9 8.5-10.5 [facility] HospitalRuqfwskVFTXMPALKCNJ7694-48-87 12:41:00 Test Item Value Reference Range Interpretation Comments Creatinine Lvl (test code = Creatinine 12.90 0.50-1.40 Lvl) [facility] HospitalBqjvcenYJRTHPYRKIPK9705-93-52 12:41:00 Test Item Value Reference Range Interpretation Comments BUN (test code = BUN) 60 7-22 [facility] HospitalCeemxcsMTNTGTXBDMTN6028-58-86 12:41:00 Test Item Value Reference Range Interpretation Comments Sodium Lvl (test code = Sodium Lvl) 139 135-145 [facility] HospitalHnzvbslZDWKIVUIVDDF8310-46-36 12:41:00 Test Item Value Reference Range Interpretation Comments Glucose Lvl (test code = Glucose Lvl) 93 70-99 [facility] HospitalKzxiuelNCYFMPKISBAD7576-88-30 12:41:00 Test Item Value Reference Range Interpretation Comments Chloride Lvl (test code = Chloride Lvl) 102 95-109 [facility] HospitalLyaztfcTGELSTQEFPSR1384-06-21 12:41:00 Test Item Value Reference Range Interpretation Comments Potassium Lvl (test code = Potassium 4.8 3.5-5.1 Lvl) [facility] CenterQchqbqfZVNFSHHMXF5195-36-48 12:41:00 Test Item Value Reference Range Interpretation Comments MCHC (test code = MCHC) 35.3 32.0-36.0 [facility] CenterKnhgpwtPPRETTLLIX3687-70-61 12:41:00 Test Item Value Reference Range Interpretation Comments Hgb (test code = Hgb) 7.8 14.0-18.0 [facility] CenterRqpliihPCBCQPTDMQ1579-72-08 12:41:00 Test Item Value Reference Range Interpretation Comments Hct (test code = Hct) 22.0 42.0-54.0 [facility] CenterRxhebbkECVPNFGVHW1756-16-93 12:41:00 Test Item Value Reference Range Interpretation Comments RBC (test code = RBC) 2.68 4.70-6.10 [facility] CenterSgmlqbvYQLDEZZDRX6724-23-16 12:41:00 Test Item Value Reference Range Interpretation Comments WBC (test code = WBC) 4.4 3.7-10.4 [facility] CenterDuqjvqiVDKZEGWOHJ2208-89-29 12:41:00 Test Item Value Reference Range Interpretation Comments RDW (test code = RDW) 14.5 11.5-14.5 [facility] CenterRfhdiycYQVTXHUTPT7170-12-62 12:41:00 Test Item Value Reference Range Interpretation Comments MCV (test code = MCV) 82.1 80.0-94.0 [facility] CenterKuusapiCLOCSVWBVS1543-53-56 12:41:00 Test Item Value Reference Range Interpretation Comments MCH (test code = MCH) 29.0 pg 27.0-31.0 [facility] CenterYkowqvlQJOBNQGXFK5145-81-55 12:41:00 Test Item Value Reference Range Interpretation Comments Platelet (test code = Platelet) 128 133-450 [facility] CenterZfznimuNYRUPDJLLU0141-82-48 12:41:00 Test Item Value Reference Range Interpretation Comments MPV (test code = MPV) 7.3 7.4-10.4 [facility] CenterTtcfbqcAKCRSJTZGT3371-44-76 12:41:00 Test Item Value Reference Range Interpretation Comments Monocytes # (test code 0.4 See_Comment [Aut omated message] The = Monocytes #) system which generated this result tra nsmitted reference range : <=0.8. The reference r yared was not used to int erpret this result as normal/abnormal . [facility] CenterWrisfbaSCALJZZVXT4747-66-22 12:41:00 Test Item Value Reference Range Interpretation Comments Eosinophils # (test code 0.2 See_Comment [A utomated message] The = Eosinophils #) system whic h generated this result tra nsmitted reference range : <=0.5. The reference r yared was not used to int erpret this result as normal/abnormal . [facility] CenterXzhrveqFAQBAFKVUZ8457-48-36 12:41:00 Test Item Value Reference Range Interpretation Comments Monocytes (test code = Monocytes) 9.7 2.0-12.0 [facility] CenterBmcyfpuKXNQXXBRAM1805-47-68 12:41:00 Test Item Value Reference Range Interpretation Comments Eosinophils (test code = 3.7 See_Comment [A utomated message] The Eosinophils) system which ge nerated this result tra nsmitted reference range : <=4.0. The reference r yared was not used to int erpret this result as normal/abnormal . [facility] CenterNkrsfbbJGTKNIFTDL6569-53-68 12:41:00 Test Item Value Reference Range Interpretation Comments Basophils (test code = 0.8 See_Comment [Aut omated message] The Basophils) system which ge nerated this result tra nsmitted reference range : <=1.0. The reference r yared was not used to int erpret this result as normal/abnormal . [facility] CenterYfhzktbKPACAPDOPE1722-84-33 12:41:00 Test Item Value Reference Range Interpretation Comments Neutrophils # (test code = Neutrophils 3.0 1.5-8.1 #) [facility] CenterFhcgapeMPBKMWLPKR6656-32-82 12:41:00 Test Item Value Reference Range Interpretation Comments Lymphocytes # (test code = Lymphocytes 0.8 1.0-5.5 #) [facility] CenterAkciavnEXSJHBZXYC3414-22-91 12:41:00 Test Item Value Reference Range Interpretation Comments Segs (test code = Segs) 67.6 45.0-75.0 [facility] CenterPckxojsWSQNGNBYIB9279-97-13 12:41:00 Test Item Value Reference Range Interpretation Comments Lymphocytes (test code = Lymphocytes) 18.2 20.0-40.0 [facility]2018-10-14 11:17:00 Test Item Value Reference Range Interpretation Comments Magnesium Lvl (test code = Magnesium 2.5 1.8-2.4 Lvl) [facility]2018-10-14 11:17:00 Test Item Value Reference Range Interpretation Comments Phosphorus (test code = Phosphorus) 8.3 2.5-4.5 [facility] HospitalMbimpjjPXSAWMRJQAQN1919-83-30 11:17:00 Test Item Value Reference Range Interpretation Comments CO2 (test code = CO2) 22 24-32 [facility] HospitalHrokgxnJSGWUOLAVYHP5546-91-31 11:17:00 Test Item Value Reference Range Interpretation Comments Calcium Lvl (test code = Calcium Lvl) 7.5 8.5-10.5 [facility] HospitalWumugugHKMHLHUYICPM9808-65-23 11:17:00 Test Item Value Reference Range Interpretation Comments Chloride Lvl (test code = Chloride Lvl) 98 95-109 [facility] HospitalOpcmwwfZXLMOJHHXLTH5114-01-36 11:17:00 Test Item Value Reference Range Interpretation Comments eGFR (test code = eGFR) 2 [facility] HospitalZqruwfjIKULWLGBMTXC6088-79-83 11:17:00 Test Item Value Reference Range Interpretation Comments Creatinine Lvl (test code = Creatinine 19.20 0.50-1.40 Lvl) [facility] HospitalDrxhecfMJDGLBXLYAUG0622-76-09 11:17:00 Test Item Value Reference Range Interpretation Comments BUN (test code = BUN) 97 7-22 [facility] HospitalVtvfusvLMWTKSRMUAWU0655-88-35 11:17:00 Test Item Value Reference Range Interpretation Comments Potassium Lvl (test code = Potassium 4.7 3.5-5.1 Lvl) [facility] HospitalYivxpkvBNKCHGTSGFVZ5709-95-45 11:17:00 Test Item Value Reference Range Interpretation Comments Sodium Lvl (test code = Sodium Lvl) 135 135-145 [facility] HospitalJfcdstlTYRFTBMTLQGE6272-39-55 11:17:00 Test Item Value Reference Range Interpretation Comments Glucose Lvl (test code = Glucose Lvl) 82 70-99 [facility] HospitalPphbayiNEDSBGTURQUA1280-09-65 11:17:00 Test Item Value Reference Range Interpretation Comments AGAP (test code = AGAP) 19.7 10.0-20.0 [facility] CenterYccstpqDKKJDZQCBT3022-33-85 11:17:00 Test Item Value Reference Range Interpretation Comments WBC (test code = WBC) 4.9 3.7-10.4 [facility] CenterBnbkbbuAYBMFMXBCN1413-50-24 11:17:00 Test Item Value Reference Range Interpretation Comments RBC (test code = RBC) 2.85 4.70-6.10 [facility] CenterNgxfberEPKBZWOOMI2530-79-54 11:17:00 Test Item Value Reference Range Interpretation Comments MCV (test code = MCV) 82.3 80.0-94.0 [facility] CenterCcsusfzJYTHSBWEKD9417-78-50 11:17:00 Test Item Value Reference Range Interpretation Comments MCH (test code = MCH) 28.8 pg 27.0-31.0 [facility] CenterXtblbakAADFHSQDXA4748-87-26 11:17:00 Test Item Value Reference Range Interpretation Comments Hgb (test code = Hgb) 8.2 14.0-18.0 [facility] CenterDaofosoZAAQMQQCMS8465-98-56 11:17:00 Test Item Value Reference Range Interpretation Comments Hct (test code = Hct) 23.4 42.0-54.0 [facility] CenterXpiozebNPGKXTKRCO1443-61-94 11:17:00 Test Item Value Reference Range Interpretation Comments RDW (test code = RDW) 15.0 11.5-14.5 [facility] CenterAnpfyhcJPGMPTMUWI8174-78-40 11:17:00 Test Item Value Reference Range Interpretation Comments MCHC (test code = MCHC) 35.0 32.0-36.0 [facility] CenterVuqzkztWRSSIICSPT7648-15-82 11:17:00 Test Item Value Reference Range Interpretation Comments MPV (test code = MPV) 7.4 7.4-10.4 [facility] CenterKyvimcsECKMEIBOVW4836-79-21 11:17:00 Test Item Value Reference Range Interpretation Comments Platelet (test code = Platelet) 140 133-450 [facility] CenterOazanwpRMXUZMHULI7630-52-98 11:17:00 Test Item Value Reference Range Interpretation Comments Lymphocytes (test code = Lymphocytes) 20.3 20.0-40.0 [facility] CenterYacisaeNUUDRJYGKI0550-49-74 11:17:00 Test Item Value Reference Range Interpretation Comments Basophils (test code = 1.0 See_Comment [Aut omated message] The Basophils) system which ge nerated this result tra nsmitted reference range : <=1.0. The reference r yared was not used to int erpret this result as normal/abnormal . [facility] CenterXsitispGQLIBDLFOP5311-86-93 11:17:00 Test Item Value Reference Range Interpretation Comments Segs (test code = Segs) 67.1 45.0-75.0 [facility] CenterUjtcbxxSTFESOZKVH9079-31-00 11:17:00 Test Item Value Reference Range Interpretation Comments Neutrophils # (test code = Neutrophils 3.3 1.5-8.1 #) [facility] CenterXudhqepPVXOQRSVHJ8801-57-06 11:17:00 Test Item Value Reference Range Interpretation Comments Eosinophils (test code = 3.1 See_Comment [A utomated message] The Eosinophils) system which ge nerated this result tra nsmitted reference range : <=4.0. The reference r yared was not used to int erpret this result as normal/abnormal . [facility] CenterDpwhbprYGYDAKJUVZ8251-94-92 11:17:00 Test Item Value Reference Range Interpretation Comments Monocytes (test code = Monocytes) 8.5 2.0-12.0 [facility] CenterBscgugbQMTKBHNGGO2952-66-13 11:17:00 Test Item Value Reference Range Interpretation Comments Monocytes # (test code 0.4 See_Comment [Aut omated message] The = Monocytes #) system which generated this result tra nsmitted reference range : <=0.8. The reference r yared was not used to int erpret this result as normal/abnormal . [facility] HospitalFkakcfnELHAUBUAZI3622-40-96 11:17:00 Test Item Value Reference Range Interpretation Comments Lymphocytes # (test code = Lymphocytes 1.0 1.0-5.5 #) [facility] HospitalPhjpgazIFPMFGFSPF2635-63-83 11:17:00 Test Item Value Reference Range Interpretation Comments Eosinophils # (test code 0.1 See_Comment [A utomated message] The = Eosinophils #) system whic h generated this result tra nsmitted reference range : <=0.5. The reference r yared was not used to int erpret this result as normal/abnormal . [facility] HospitalObftgpxBMAHNXZLUZ6722-78-76 11:17:00 Test Item Value Reference Range Interpretation Comments Hep Bs Ag (test code Negative *NA*(07/22/18 = Hep Bs Ag) 6:17 AM) [facility] HospitalYourListen.com ALEQL7965-92-75 11:17:00 Test Item Value Reference Range Interpretation Comments Magnesium Lvl (test code = Magnesium 2.5 1.8-2.4 Lvl) [facility] HospitalYourListen.com BUSVT6580-11-80 11:17:00 Test Item Value Reference Range Interpretation Comments Phosphorus (test code = Phosphorus) 8.3 2.5-4.5 [facility] HospitalIklioisPTEALEBGJIRZ1436-71-71 11:17:00 Test Item Value Reference Range Interpretation Comments CO2 (test code = CO2) 22 24-32 [facility] HospitalQlrmjpiPZVOZVXQHTVT8384-99-56 11:17:00 Test Item Value Reference Range Interpretation Comments Calcium Lvl (test code = Calcium Lvl) 7.5 8.5-10.5 [facility] HospitalGedrqhgOKFQRVTYDGNH7419-87-68 11:17:00 Test Item Value Reference Range Interpretation Comments Chloride Lvl (test code = Chloride Lvl) 98 95-109 [facility] HospitalJlteqvwAOKBUROJPQNP0726-56-73 11:17:00 Test Item Value Reference Range Interpretation Comments eGFR (test code = eGFR) 2 [facility] HospitalOtfococFBCTYALONTHU3726-42-40 11:17:00 Test Item Value Reference Range Interpretation Comments Creatinine Lvl (test code = Creatinine 19.20 0.50-1.40 Lvl) [facility] HospitalRdybrwdARRFXDKHLZWY8805-90-45 11:17:00 Test Item Value Reference Range Interpretation Comments BUN (test code = BUN) 97 7-22 [facility] HospitalJfgzysmMRUEMEOXHWAT2371-17-53 11:17:00 Test Item Value Reference Range Interpretation Comments Potassium Lvl (test code = Potassium 4.7 3.5-5.1 Lvl) [facility] HospitalRcomzqpREYGXVMMISJV9668-35-33 11:17:00 Test Item Value Reference Range Interpretation Comments Sodium Lvl (test code = Sodium Lvl) 135 135-145 [facility] HospitalZezecsuWWRAIIQQFGFW5827-28-89 11:17:00 Test Item Value Reference Range Interpretation Comments Glucose Lvl (test code = Glucose Lvl) 82 70-99 [facility] HospitalRdcrqxgGCLJPANJFNGW4961-21-84 11:17:00 Test Item Value Reference Range Interpretation Comments AGAP (test code = AGAP) 19.7 10.0-20.0 [facility] CenterFteasnaAWXHIJZVDG8718-03-94 11:17:00 Test Item Value Reference Range Interpretation Comments WBC (test code = WBC) 4.9 3.7-10.4 [facility] CenterEoqthqhVKTQIPRSXM3515-79-86 11:17:00 Test Item Value Reference Range Interpretation Comments RBC (test code = RBC) 2.85 4.70-6.10 [facility] CenterNxbxyblCIDGISWUFB7802-21-26 11:17:00 Test Item Value Reference Range Interpretation Comments MCV (test code = MCV) 82.3 80.0-94.0 [facility] CenterQrhjkrqIFTLDUYMDO0566-72-97 11:17:00 Test Item Value Reference Range Interpretation Comments MCH (test code = MCH) 28.8 pg 27.0-31.0 [facility] CenterEvjuwuuZIHTDZCFLJ6393-54-66 11:17:00 Test Item Value Reference Range Interpretation Comments Hgb (test code = Hgb) 8.2 14.0-18.0 [facility] CenterBgqwduaZDXFYAPNAO4186-10-19 11:17:00 Test Item Value Reference Range Interpretation Comments Hct (test code = Hct) 23.4 42.0-54.0 [facility] CenterHcfastuZRXEEGRRPC1641-01-96 11:17:00 Test Item Value Reference Range Interpretation Comments RDW (test code = RDW) 15.0 11.5-14.5 [facility] CenterSxqwdtePDPABVLYKD9010-34-21 11:17:00 Test Item Value Reference Range Interpretation Comments MCHC (test code = MCHC) 35.0 32.0-36.0 [facility] CenterHonorrlXCOQILTUWK8621-14-70 11:17:00 Test Item Value Reference Range Interpretation Comments MPV (test code = MPV) 7.4 7.4-10.4 [facility] CenterFphchbkNPLPVSLNCL0215-23-78 11:17:00 Test Item Value Reference Range Interpretation Comments Platelet (test code = Platelet) 140 133-450 [facility] CenterDedqjjmIEMXRHGLUZ1061-96-02 11:17:00 Test Item Value Reference Range Interpretation Comments Lymphocytes (test code = Lymphocytes) 20.3 20.0-40.0 [facility] CenterQbqwzdkLXNTYDILPZ2185-69-26 11:17:00 Test Item Value Reference Range Interpretation Comments Basophils (test code = 1.0 See_Comment [Aut omated message] The Basophils) system which ge nerated this result tra nsmitted reference range : <=1.0. The reference r yared was not used to int erpret this result as normal/abnormal . [facility] CenterUtcomeaCRAIRCPQYF7449-65-35 11:17:00 Test Item Value Reference Range Interpretation Comments Segs (test code = Segs) 67.1 45.0-75.0 [facility] CenterLjgnzseXFWHEDKGWJ5293-56-23 11:17:00 Test Item Value Reference Range Interpretation Comments Neutrophils # (test code = Neutrophils 3.3 1.5-8.1 #) [facility] CenterTxvtznqYNOKAZDJGC2474-48-42 11:17:00 Test Item Value Reference Range Interpretation Comments Eosinophils (test code = 3.1 See_Comment [A utomated message] The Eosinophils) system which ge nerated this result tra nsmitted reference range : <=4.0. The reference r yared was not used to int erpret this result as normal/abnormal . [facility] CenterKzeshtxNGZFNWCIBK4754-23-65 11:17:00 Test Item Value Reference Range Interpretation Comments Monocytes (test code = Monocytes) 8.5 2.0-12.0 [facility] CenterFmwqcclPIURFVPRRA1038-87-71 11:17:00 Test Item Value Reference Range Interpretation Comments Monocytes # (test code 0.4 See_Comment [Aut omated message] The = Monocytes #) system which generated this result tra nsmitted reference range : <=0.8. The reference r yared was not used to int erpret this result as normal/abnormal . [facility] CenterTijjewdMBXEXORJZN8661-10-90 11:17:00 Test Item Value Reference Range Interpretation Comments Lymphocytes # (test code = Lymphocytes 1.0 1.0-5.5 #) [facility] CenterHnrjihoCVTNTFCVKL8219-00-18 11:17:00 Test Item Value Reference Range Interpretation Comments Eosinophils # (test code 0.1 See_Comment [A utomated message] The = Eosinophils #) system whic h generated this result tra nsmitted reference range : <=0.5. The reference r yared was not used to int erpret this result as normal/abnormal . [facility] HospitalSoidayqLJFNFJGTZP9488-01-36 11:17:00 Test Item Value Reference Range Interpretation Comments Hep Bs Ag (test code Negative *NA*(07/22/18 = Hep Bs Ag) 6:17 AM) [facility]2018-10-14 11:17:00 Test Item Value Reference Range Interpretation Comments Magnesium Lvl (test code = Magnesium 2.5 1.8-2.4 Lvl) [facility]2018-10-14 11:17:00 Test Item Value Reference Range Interpretation Comments Phosphorus (test code = Phosphorus) 8.3 2.5-4.5 [facility]ImyyvpgKWSPQYAIWQWA8862-78-28 11:17:00 Test Item Value Reference Range Interpretation Comments CO2 (test code = CO2) 22 24-32 [facility] HospitalDfpfmyuGIHXJUBROCDM6981-57-17 11:17:00 Test Item Value Reference Range Interpretation Comments Calcium Lvl (test code = Calcium Lvl) 7.5 8.5-10.5 [facility] HospitalMswdefqQBPJCTWSCNDU3326-93-84 11:17:00 Test Item Value Reference Range Interpretation Comments Chloride Lvl (test code = Chloride Lvl) 98 95-109 [facility] HospitalCxewqwuZXXCMIYLZOXV4188-14-26 11:17:00 Test Item Value Reference Range Interpretation Comments eGFR (test code = eGFR) 2 [facility] HospitalGjrygukXYQPEYERPRRR7177-59-63 11:17:00 Test Item Value Reference Range Interpretation Comments Creatinine Lvl (test code = Creatinine 19.20 0.50-1.40 Lvl) [facility] HospitalZqtuqslEEGYTBGEHBSQ9839-97-58 11:17:00 Test Item Value Reference Range Interpretation Comments BUN (test code = BUN) 97 7-22 [facility] HospitalFohdxmmDTJXPQPHWIIF5804-20-96 11:17:00 Test Item Value Reference Range Interpretation Comments Potassium Lvl (test code = Potassium 4.7 3.5-5.1 Lvl) [facility] HospitalJrdozgpCWKSYCILGIMM6110-25-23 11:17:00 Test Item Value Reference Range Interpretation Comments Sodium Lvl (test code = Sodium Lvl) 135 135-145 [facility] HospitalPnzdfyxEGHQXRAWNDHT2100-59-07 11:17:00 Test Item Value Reference Range Interpretation Comments Glucose Lvl (test code = Glucose Lvl) 82 70-99 [facility] HospitalMkanmyjVRPQNYMXWKFA8959-86-45 11:17:00 Test Item Value Reference Range Interpretation Comments AGAP (test code = AGAP) 19.7 10.0-20.0 [facility] CenterGydkexlYWCUXRFNZW7995-71-10 11:17:00 Test Item Value Reference Range Interpretation Comments WBC (test code = WBC) 4.9 3.7-10.4 [facility] CenterDioxhjjIADRTLXRAA2835-18-83 11:17:00 Test Item Value Reference Range Interpretation Comments RBC (test code = RBC) 2.85 4.70-6.10 [facility] CenterJgjlqyxBKJAZAUXKC3300-16-14 11:17:00 Test Item Value Reference Range Interpretation Comments MCV (test code = MCV) 82.3 80.0-94.0 [facility] CenterOahumvvHEKTHUKMDS1361-09-59 11:17:00 Test Item Value Reference Range Interpretation Comments MCH (test code = MCH) 28.8 pg 27.0-31.0 [facility] CenterDhqgwncMAMYHIYVIS7062-34-05 11:17:00 Test Item Value Reference Range Interpretation Comments Hgb (test code = Hgb) 8.2 14.0-18.0 [facility] CenterExuwcapTDHYLRWAVH9265-96-85 11:17:00 Test Item Value Reference Range Interpretation Comments Hct (test code = Hct) 23.4 42.0-54.0 [facility] CenterUijrdrgRVFKSUQJKN2775-59-00 11:17:00 Test Item Value Reference Range Interpretation Comments RDW (test code = RDW) 15.0 11.5-14.5 [facility] CenterCdmzstbQIHHFSAMAG8193-78-19 11:17:00 Test Item Value Reference Range Interpretation Comments MCHC (test code = MCHC) 35.0 32.0-36.0 [facility] CenterGvjjpuuMEWOPAHIIE3891-57-46 11:17:00 Test Item Value Reference Range Interpretation Comments MPV (test code = MPV) 7.4 7.4-10.4 [facility] CenterOcnibkgXZBZGSTJVX6385-04-27 11:17:00 Test Item Value Reference Range Interpretation Comments Platelet (test code = Platelet) 140 133-450 [facility] CenterMdvuigdBCLIGDGDWT9441-54-57 11:17:00 Test Item Value Reference Range Interpretation Comments Lymphocytes (test code = Lymphocytes) 20.3 20.0-40.0 [facility] CenterEnflkhmOCHYCKPUVG5177-74-96 11:17:00 Test Item Value Reference Range Interpretation Comments Basophils (test code = 1.0 See_Comment [Aut omated message] The Basophils) system which ge nerated this result tra nsmitted reference range : <=1.0. The reference r yared was not used to int erpret this result as normal/abnormal . [facility] CenterThcjvxvPFWGBYPCWS2798-89-59 11:17:00 Test Item Value Reference Range Interpretation Comments Segs (test code = Segs) 67.1 45.0-75.0 [facility] CenterJtedlvoZOSUNKCDHN4485-23-47 11:17:00 Test Item Value Reference Range Interpretation Comments Neutrophils # (test code = Neutrophils 3.3 1.5-8.1 #) [facility] CenterBwbslfpZUOUAGHZAA5161-69-00 11:17:00 Test Item Value Reference Range Interpretation Comments Eosinophils (test code = 3.1 See_Comment [A utomated message] The Eosinophils) system which ge nerated this result tra nsmitted reference range : <=4.0. The reference r yared was not used to int erpret this result as normal/abnormal . [facility] CenterPcbmfbvRFHMBPMLHS4972-56-51 11:17:00 Test Item Value Reference Range Interpretation Comments Monocytes (test code = Monocytes) 8.5 2.0-12.0 [facility] CenterFwahwywCVEPQGRWKN4411-73-47 11:17:00 Test Item Value Reference Range Interpretation Comments Monocytes # (test code 0.4 See_Comment [Aut omated message] The = Monocytes #) system which generated this result tra nsmitted reference range : <=0.8. The reference r yared was not used to int erpret this result as normal/abnormal . [facility] CenterHbkgbpbJNMSQPDRIT8450-39-20 11:17:00 Test Item Value Reference Range Interpretation Comments Lymphocytes # (test code = Lymphocytes 1.0 1.0-5.5 #) [facility]KjisshlJATFYKBRKZ9668-59-06 11:17:00 Test Item Value Reference Range Interpretation Comments Eosinophils # (test code 0.1 See_Comment [A utomated message] The = Eosinophils #) system whic h generated this result tra nsmitted reference range : <=0.5. The reference r yared was not used to int erpret this result as normal/abnormal . [facility] HospitalOwsnvbuYTDBXVFEAC5624-81-70 11:17:00 Test Item Value Reference Range Interpretation Comments Hep Bs Ag (test code Negative *NA*(07/22/18 = Hep Bs Ag) 6:17 AM) [facility] HospitalCHEM AAUBC2844-59-39 11:17:00 Test Item Value Reference Range Interpretation Comments Magnesium Lvl (test code = Magnesium 2.5 1.8-2.4 Lvl) [facility] HospitalYourListen.com FZWCF5426-02-53 11:17:00 Test Item Value Reference Range Interpretation Comments Phosphorus (test code = Phosphorus) 8.3 2.5-4.5 [facility]ddxUFCENIPJLUKN8191-30-63 11:17:00 Test Item Value Reference Range Interpretation Comments CO2 (test code = CO2) 22 24-32 [facility] HospitalPeawhwuZMFPPJWGUPEX5956-59-91 11:17:00 Test Item Value Reference Range Interpretation Comments Calcium Lvl (test code = Calcium Lvl) 7.5 8.5-10.5 [facility] HospitalLqshcgdJEYQNIWZGXPE0511-30-52 11:17:00 Test Item Value Reference Range Interpretation Comments Chloride Lvl (test code = Chloride Lvl) 98 95-109 [facility] HospitalOzfoyftIDRIVQTBJTEX1242-22-77 11:17:00 Test Item Value Reference Range Interpretation Comments eGFR (test code = eGFR) 2 [facility] HospitalLzhzyykPMEVKVKGECJF7982-22-72 11:17:00 Test Item Value Reference Range Interpretation Comments Creatinine Lvl (test code = Creatinine 19.20 0.50-1.40 Lvl) [facility] HospitalKovvmavPBSAJCKIEQGG6078-42-36 11:17:00 Test Item Value Reference Range Interpretation Comments BUN (test code = BUN) 97 7-22 [facility] HospitalNgetjxlDRWVEXYVVUOL6962-70-56 11:17:00 Test Item Value Reference Range Interpretation Comments Potassium Lvl (test code = Potassium 4.7 3.5-5.1 Lvl) [facility] HospitalHaeioqzGZWRQLRSNFPM9554-05-83 11:17:00 Test Item Value Reference Range Interpretation Comments Sodium Lvl (test code = Sodium Lvl) 135 135-145 [facility] HospitalBedvwkcVOTBKNOIRMDJ0142-01-79 11:17:00 Test Item Value Reference Range Interpretation Comments Glucose Lvl (test code = Glucose Lvl) 82 70-99 [facility] HospitalQwupyefALRLBGATEIEU9722-86-28 11:17:00 Test Item Value Reference Range Interpretation Comments AGAP (test code = AGAP) 19.7 10.0-20.0 [facility] CenterIlaogowHMENHJJWRU0762-32-62 11:17:00 Test Item Value Reference Range Interpretation Comments WBC (test code = WBC) 4.9 3.7-10.4 [facility] CenterLujcjsbSLHOWMCSFX4666-79-97 11:17:00 Test Item Value Reference Range Interpretation Comments RBC (test code = RBC) 2.85 4.70-6.10 [facility] CenterKwrqwhhOIUCCHYIMZ5227-78-99 11:17:00 Test Item Value Reference Range Interpretation Comments MCV (test code = MCV) 82.3 80.0-94.0 [facility] CenterDntojfmOEIPKICBJI9463-74-84 11:17:00 Test Item Value Reference Range Interpretation Comments MCH (test code = MCH) 28.8 pg 27.0-31.0 [facility] CenterGgqjrelGGYAHRGMMS2018-75-37 11:17:00 Test Item Value Reference Range Interpretation Comments Hgb (test code = Hgb) 8.2 14.0-18.0 [facility] CenterPhdztfqNCDRJVGJGX9817-90-97 11:17:00 Test Item Value Reference Range Interpretation Comments Hct (test code = Hct) 23.4 42.0-54.0 [facility] CenterGlvcafrJLCMEKJEPG3713-78-87 11:17:00 Test Item Value Reference Range Interpretation Comments RDW (test code = RDW) 15.0 11.5-14.5 [facility] CenterZmkzzfwQKZZSCZXSA2760-28-50 11:17:00 Test Item Value Reference Range Interpretation Comments MCHC (test code = MCHC) 35.0 32.0-36.0 [facility] CenterNtddbehWLNRFOXNWE2189-12-85 11:17:00 Test Item Value Reference Range Interpretation Comments MPV (test code = MPV) 7.4 7.4-10.4 [facility] CenterPcxewcwCZBFVUTNPY7385-35-72 11:17:00 Test Item Value Reference Range Interpretation Comments Platelet (test code = Platelet) 140 133-450 [facility] CenterCsknjuhKXIISHJLRC7446-07-97 11:17:00 Test Item Value Reference Range Interpretation Comments Lymphocytes (test code = Lymphocytes) 20.3 20.0-40.0 [facility] CenterMucgeweJGQCLGDPVL3093-53-32 11:17:00 Test Item Value Reference Range Interpretation Comments Basophils (test code = 1.0 See_Comment [Aut omated message] The Basophils) system which ge nerated this result tra nsmitted reference range : <=1.0. The reference r yared was not used to int erpret this result as normal/abnormal . [facility] CenterLabxhruWKMTCLPGHA5320-06-92 11:17:00 Test Item Value Reference Range Interpretation Comments Segs (test code = Segs) 67.1 45.0-75.0 [facility] CenterQiovrwiOUHZJKZQUI7318-10-72 11:17:00 Test Item Value Reference Range Interpretation Comments Neutrophils # (test code = Neutrophils 3.3 1.5-8.1 #) [facility] CenterQitaszdVIXEUTSEAF7093-98-88 11:17:00 Test Item Value Reference Range Interpretation Comments Eosinophils (test code = 3.1 See_Comment [A utomated message] The Eosinophils) system which ge nerated this result tra nsmitted reference range : <=4.0. The reference r yared was not used to int erpret this result as normal/abnormal . [facility] CenterBeaixirTNMYJRHWJW0454-49-19 11:17:00 Test Item Value Reference Range Interpretation Comments Monocytes (test code = Monocytes) 8.5 2.0-12.0 [facility] CenterGqhsonyJOLTGEPXHA9917-82-25 11:17:00 Test Item Value Reference Range Interpretation Comments Monocytes # (test code 0.4 See_Comment [Aut omated message] The = Monocytes #) system which generated this result tra nsmitted reference range : <=0.8. The reference r yared was not used to int erpret this result as normal/abnormal . [facility] CenterVzmyvsdLFAPHEBSZO1334-96-87 11:17:00 Test Item Value Reference Range Interpretation Comments Lymphocytes # (test code = Lymphocytes 1.0 1.0-5.5 #) [facility] CenterCgbmkmgCTSUQCMHGA8943-76-99 11:17:00 Test Item Value Reference Range Interpretation Comments Eosinophils # (test code 0.1 See_Comment [A utomated message] The = Eosinophils #) system whic h generated this result tra nsmitted reference range : <=0.5. The reference r yared was not used to int erpret this result as normal/abnormal . [facility] FspqychIPDWINZSQK2419-88-45 11:17:00 Test Item Value Reference Range Interpretation Comments Hep Bs Ag (test code Negative *NA*(07/22/18 = Hep Bs Ag) 6:17 AM) [facility] [employer] XZLDQKG0830-73-21 02:46:00 Test Item Value Reference Range Interpretation Comments proBNP (test code = 76918 See_Comment [Automa emerson message] The proBNP) system which ge nerated this result tra nsmitted reference range : <=125. The reference r yared was not used to int erpret this result as erinn l/abnormal. [facility] [place]2018-10-14 02:46:00 Test Item Value Reference Range Interpretation Comments Troponin-I (test code no gt See_Comment [Auto mated message] The = Troponin-I) system which g enerated this result transmit emerson reference range : <=0.40. The reference r yared was not used to interpr et this result as erinn l/abnormal. [place]2018-10-14 02:46:00 Test Item Value Reference Range Interpretation Comments Total CK (test code = Total CK) 91 12-191 [employer] WBXET9599-28-13 02:46:00 Test Item Value Reference Range Interpretation Comments Lipase Lvl (test code = Lipase Lvl) 95 73-393 [facility] [employer] GCDKN9221-41-18 02:46:00 Test Item Value Reference Range Interpretation Comments Globulin (test code = Globulin) 3.2 2.7-4.2 [facility] [employer] [id number] 02:46:00 Test Item Value Reference Range Interpretation Comments A/G Ratio (test code = A/G Ratio) 0.9 1 0.7-1.6 [employer] [id number] 02:46:00 Test Item Value Reference Range Interpretation Comments B/C Ratio (test code = B/C Ratio) 5 1 6-25 [facility]2018-10-14 02:46:00 Test Item Value Reference Range Interpretation Comments AGAP (test code = AGAP) 18.7 10.0-20.0 [facility]2018-10-14 02:46:00 Test Item Value Reference Range Interpretation Comments eGFR (test code = eGFR) 2 [facility]2018-10-14 02:46:00 Test Item Value Reference Range Interpretation Comments Calcium Lvl (test code = Calcium Lvl) 7.6 8.5-10.5 [facility]2018-10-14 02:46:00 Test Item Value Reference Range Interpretation Comments CO2 (test code = CO2) 24 24-32 [facility]2018-10-14 02:46:00 Test Item Value Reference Range Interpretation Comments Chloride Lvl (test code = Chloride Lvl) 98 95-109 [facility]2018-10-14 02:46:00 Test Item Value Reference Range Interpretation Comments Potassium Lvl (test code = Potassium 4.7 3.5-5.1 Lvl) [facility]2018-10-14 02:46:00 Test Item Value Reference Range Interpretation Comments Sodium Lvl (test code = Sodium Lvl) 136 135-145 [facility]2018-10-14 02:46:00 Test Item Value Reference Range Interpretation Comments Albumin Lvl (test code = Albumin Lvl) 2.8 3.5-5.0 [facility]2018-10-14 02:46:00 Test Item Value Reference Range Interpretation Comments ALT (test code = ALT) 13 See_Comment [Auto mated message] The system which ge nerated this result transmit emerson reference range : <=65. The reference range was not used to interpr et this result as erinn l/abnormal. [facility]2018-10-14 02:46:00 Test Item Value Reference Range Interpretation Comments AST (test code = AST) 9 See_Comment [Auto mated message] The system which ge nerated this result transmit emerson reference range : <=37. The reference range was not used to interpr et this result as erinn l/abnormal. [facility]2018-10-14 02:46:00 Test Item Value Reference Range Interpretation Comments Alk Phos (test code = Alk Phos) 57 39-136 [facility]2018-10-14 02:46:00 Test Item Value Reference Range Interpretation Comments Total Protein (test code = Total 6.0 6.4-8.4 Protein) [facility]2018-10-14 02:46:00 Test Item Value Reference Range Interpretation Comments Bili Total (test code = Bili Total) 0.4 0.2-1.3 [facility]2018-10-14 02:46:00 Test Item Value Reference Range Interpretation Comments Creatinine Lvl (test code = Creatinine 18.60 0.50-1.40 Lvl) [facility]2018-10-14 02:46:00 Test Item Value Reference Range Interpretation Comments Glucose Lvl (test code = Glucose Lvl) 89 70-99 [facility]2018-10-14 02:46:00 Test Item Value Reference Range Interpretation Comments BUN (test code = BUN) 95 7-22 [facility] CenterDyroajqZEPMOGMFQL1679-16-27 02:46:00 Test Item Value Reference Range Interpretation Comments Segs (test code = Segs) 66.2 45.0-75.0 [place] [address]-10-14 02:46:00 Test Item Value Reference Range Interpretation Comments Lymphocytes (test code = Lymphocytes) 21.4 20.0-40.0 [facility] CenterJaofoopKXPEMWEQMH0983-78-28 02:46:00 Test Item Value Reference Range Interpretation Comments Monocytes (test code = Monocytes) 7.7 2.0-12.0 [place] 101438-10-14 02:46:00 Test Item Value Reference Range Interpretation Comments Lymphocytes # (test code = Lymphocytes 0.9 1.0-5.5 #) [place] 101438-10-14 02:46:00 Test Item Value Reference Range Interpretation Comments Basophils (test code = 1.2 See_Comment [Aut omated message] The Basophils) system which ge nerated this result tra nsmitted reference range : <=1.0. The reference r yared was not used to int erpret this result as normal/abnormal . [facility] CenterYsjrxmcJRBRIMDRIT1481-91-88 02:46:00 Test Item Value Reference Range Interpretation Comments Monocytes # (test code 0.3 See_Comment [Aut omated message] The = Monocytes #) system which generated this result tra nsmitted reference range : <=0.8. The reference r yared was not used to int erpret this result as normal/abnormal . [facility] CenterCfjcubmCNCHDFKALG9583-30-41 02:46:00 Test Item Value Reference Range Interpretation Comments Eosinophils # (test code 0.1 See_Comment [A utomated message] The = Eosinophils #) system whic h generated this result tra nsmitted reference range : <=0.5. The reference r yared was not used to int erpret this result as normal/abnormal . [facility] CenterQcwuxsxYTKVPADIFV2496-11-50 02:46:00 Test Item Value Reference Range Interpretation Comments Neutrophils # (test code = Neutrophils 2.7 1.5-8.1 #) [facility] CenterYoeousdHBCXMQOCCA1392-30-09 02:46:00 Test Item Value Reference Range Interpretation Comments Eosinophils (test code = 3.5 See_Comment [A utomated message] The Eosinophils) system which ge nerated this result tra nsmitted reference range : <=4.0. The reference r yared was not used to int erpret this result as normal/abnormal . [facility] CenterRyeqpzePRJRVAGSHL0430-82-87 02:46:00 Test Item Value Reference Range Interpretation Comments PT (test code = PT) 14.4 s 12.0-14.7 [facility] CenterXirgikoQOOMTKIJOM0063-26-98 02:46:00 Test Item Value Reference Range Interpretation Comments INR (test code = INR) 1.12 1 0.85-1.17 [facility] CenterOwjtsncTMDMDENKEF1657-78-32 02:46:00 Test Item Value Reference Range Interpretation Comments PTT (test code = PTT) 37.1 s 22.9-35.8 [facility] CenterGeyswtvDUOBWOURXF9838-91-44 02:46:00 Test Item Value Reference Range Interpretation Comments RDW (test code = RDW) 14.8 11.5-14.5 [facility] CenterEevsidiQEXYFJPHFO0348-27-83 02:46:00 Test Item Value Reference Range Interpretation Comments Platelet (test code = Platelet) 143 133-450 [facility] CenterGzqwctfEARTTPMZBH6578-21-37 02:46:00 Test Item Value Reference Range Interpretation Comments MPV (test code = MPV) 7.6 7.4-10.4 [facility] CenterIhrllqlOGWSDOLLKZ7716-46-39 02:46:00 Test Item Value Reference Range Interpretation Comments RBC (test code = RBC) 2.83 4.70-6.10 [facility] HospitalCwekgyuPZIZPNDFNE1043-39-83 02:46:00 Test Item Value Reference Range Interpretation Comments WBC (test code = WBC) 4.1 3.7-10.4 [facility] HospitalTqqbgymRNSOCDDNBE5149-26-26 02:46:00 Test Item Value Reference Range Interpretation Comments MCHC (test code = MCHC) 35.2 32.0-36.0 [facility] HospitalJitksdgFLCATYXJGR4943-68-47 02:46:00 Test Item Value Reference Range Interpretation Comments MCH (test code = MCH) 28.8 pg 27.0-31.0 [facility] HospitalYkoiarlFVIMULPJFO5162-64-28 02:46:00 Test Item Value Reference Range Interpretation Comments Hgb (test code = Hgb) 8.1 14.0-18.0 [facility] HospitalKobmedpYZEJUGCYWP0553-27-97 02:46:00 Test Item Value Reference Range Interpretation Comments MCV (test code = MCV) 81.9 80.0-94.0 [facility]BtcjrjdJIGDBRLMQZ3309-63-37 02:46:00 Test Item Value Reference Range Interpretation Comments Hct (test code = Hct) 23.2 42.0-54.0 [facility] HospitalWeatherBugAC HJLXCXP3824-05-81 02:46:00 Test Item Value Reference Range Interpretation Comments proBNP (test code = 78251 See_Comment [Automa emerson message] The proBNP) system which ge nerated this result tra nsmitted reference range : <=125. The reference r yared was not used to int erpret this result as erinn l/abnormal. [facility] HospitalWeatherBug YFLKXDU0569-17-32 02:46:00 Test Item Value Reference Range Interpretation Comments Troponin-I (test code no gt See_Comment [Auto mated message] The = Troponin-I) system which g enerated this result transmit emerosn reference range : <=0.40. The reference r yared was not used to interpr et this result as erinn l/abnormal. [facility] HospitalWeatherBugAC FYXMUBJ7524-00-89 02:46:00 Test Item Value Reference Range Interpretation Comments Total CK (test code = Total CK) 91 12-191 [facility] HospitalCHEM RLGEK8476-73-31 02:46:00 Test Item Value Reference Range Interpretation Comments Lipase Lvl (test code = Lipase Lvl) 95 73-393 [facility]2018-10-14 02:46:00 Test Item Value Reference Range Interpretation Comments Globulin (test code = Globulin) 3.2 2.7-4.2 [facility]2018-10-14 02:46:00 Test Item Value Reference Range Interpretation Comments A/G Ratio (test code = A/G Ratio) 0.9 1 0.7-1.6 [facility]2018-10-14 02:46:00 Test Item Value Reference Range Interpretation Comments B/C Ratio (test code = B/C Ratio) 5 1 6-25 [facility]2018-10-14 02:46:00 Test Item Value Reference Range Interpretation Comments AGAP (test code = AGAP) 18.7 10.0-20.0 [facility]2018-10-14 02:46:00 Test Item Value Reference Range Interpretation Comments eGFR (test code = eGFR) 2 [facility]2018-10-14 02:46:00 Test Item Value Reference Range Interpretation Comments Calcium Lvl (test code = Calcium Lvl) 7.6 8.5-10.5 [facility]2018-10-14 02:46:00 Test Item Value Reference Range Interpretation Comments CO2 (test code = CO2) 24 24-32 [facility]2018-10-14 02:46:00 Test Item Value Reference Range Interpretation Comments Chloride Lvl (test code = Chloride Lvl) 98 95-109 [facility]2018-10-14 02:46:00 Test Item Value Reference Range Interpretation Comments Potassium Lvl (test code = Potassium 4.7 3.5-5.1 Lvl) [facility]2018-10-14 02:46:00 Test Item Value Reference Range Interpretation Comments Sodium Lvl (test code = Sodium Lvl) 136 135-145 [facility]2018-10-14 02:46:00 Test Item Value Reference Range Interpretation Comments Albumin Lvl (test code = Albumin Lvl) 2.8 3.5-5.0 [facility]2018-10-14 02:46:00 Test Item Value Reference Range Interpretation Comments ALT (test code = ALT) 13 See_Comment [Auto mated message] The system which ge nerated this result transmit emerson reference range : <=65. The reference range was not used to interpr et this result as erinn l/abnormal. [facility]2018-10-14 02:46:00 Test Item Value Reference Range Interpretation Comments AST (test code = AST) 9 See_Comment [Auto mated message] The system which ge nerated this result transmit emerson reference range : <=37. The reference range was not used to interpr et this result as erinn l/abnormal. [place] [id number] 02:46:00 Test Item Value Reference Range Interpretation Comments Alk Phos (test code = Alk Phos) 57 39-136 [facility]2018-10-14 02:46:00 Test Item Value Reference Range Interpretation Comments Total Protein (test code = Total 6.0 6.4-8.4 Protein) [facility]2018-10-14 02:46:00 Test Item Value Reference Range Interpretation Comments Bili Total (test code = Bili Total) 0.4 0.2-1.3 [place] 362648-10-14 02:46:00 Test Item Value Reference Range Interpretation Comments Creatinine Lvl (test code = Creatinine 18.60 0.50-1.40 Lvl) [facility]2018-10-14 02:46:00 Test Item Value Reference Range Interpretation Comments Glucose Lvl (test code = Glucose Lvl) 89 70-99 [place] 362648-10-14 02:46:00 Test Item Value Reference Range Interpretation Comments BUN (test code = BUN) 95 7-22 [facility]XyrxsqxERVZWCDSEA0966-56-69 02:46:00 Test Item Value Reference Range Interpretation Comments Segs (test code = Segs) 66.2 45.0-75.0 [facility] CenterZwezqeqPFLSHRNAIK4410-32-15 02:46:00 Test Item Value Reference Range Interpretation Comments Lymphocytes (test code = Lymphocytes) 21.4 20.0-40.0 [facility] CenterSntdrcgNICOXPSEPM8725-22-12 02:46:00 Test Item Value Reference Range Interpretation Comments Monocytes (test code = Monocytes) 7.7 2.0-12.0 [place] 101438-10-14 02:46:00 Test Item Value Reference Range Interpretation Comments Lymphocytes # (test code = Lymphocytes 0.9 1.0-5.5 #) [facility] CenterTruwlutKLZCEYABBQ2885-76-28 02:46:00 Test Item Value Reference Range Interpretation Comments Basophils (test code = 1.2 See_Comment [Aut omated message] The Basophils) system which ge nerated this result tra nsmitted reference range : <=1.0. The reference r yared was not used to int erpret this result as normal/abnormal . [facility] CenterXpwgzmgPOPNEMWCAZ3899-89-46 02:46:00 Test Item Value Reference Range Interpretation Comments Monocytes # (test code 0.3 See_Comment [Aut omated message] The = Monocytes #) system which generated this result tra nsmitted reference range : <=0.8. The reference r yared was not used to int erpret this result as normal/abnormal . [facility] CenterCyqtlkuEGHTZEAJNL3563-68-20 02:46:00 Test Item Value Reference Range Interpretation Comments Eosinophils # (test code 0.1 See_Comment [A utomated message] The = Eosinophils #) system whic h generated this result tra nsmitted reference range : <=0.5. The reference r yared was not used to int erpret this result as normal/abnormal . [facility] CenterDbwqsjnIOVEMTUKPV7937-79-19 02:46:00 Test Item Value Reference Range Interpretation Comments Neutrophils # (test code = Neutrophils 2.7 1.5-8.1 #) [facility] CenterZrqgxsaUYCRTICFWJ2312-24-56 02:46:00 Test Item Value Reference Range Interpretation Comments Eosinophils (test code = 3.5 See_Comment [A utomated message] The Eosinophils) system which ge nerated this result tra nsmitted reference range : <=4.0. The reference r yared was not used to int erpret this result as normal/abnormal . [facility] CenterWdxmitiUOJQADHHOF6814-57-28 02:46:00 Test Item Value Reference Range Interpretation Comments PT (test code = PT) 14.4 s 12.0-14.7 [facility] CenterEyyndhnVXNDFGJQBX1504-59-95 02:46:00 Test Item Value Reference Range Interpretation Comments INR (test code = INR) 1.12 1 0.85-1.17 [facility] CenterRxksblvLETENOXXHH6944-41-06 02:46:00 Test Item Value Reference Range Interpretation Comments PTT (test code = PTT) 37.1 s 22.9-35.8 [facility] CenterKtpxwfaADBVSOYZTF6928-59-31 02:46:00 Test Item Value Reference Range Interpretation Comments RDW (test code = RDW) 14.8 11.5-14.5 [facility]KmkbpfxEBVCKCWERZ4583-92-58 02:46:00 Test Item Value Reference Range Interpretation Comments Platelet (test code = Platelet) 143 133-450 [facility] HospitalDhcjqpcBNVXXHIHDM0894-52-74 02:46:00 Test Item Value Reference Range Interpretation Comments MPV (test code = MPV) 7.6 7.4-10.4 [facility] HospitalKreowolKMVOHQJIPF5541-22-44 02:46:00 Test Item Value Reference Range Interpretation Comments RBC (test code = RBC) 2.83 4.70-6.10 [facility] HospitalRavwywfZFOHIBRSZO5762-20-14 02:46:00 Test Item Value Reference Range Interpretation Comments WBC (test code = WBC) 4.1 3.7-10.4 [facility] HospitalZspdcyhVLCNRWXPBK5814-67-60 02:46:00 Test Item Value Reference Range Interpretation Comments MCHC (test code = MCHC) 35.2 32.0-36.0 [facility] HospitalQuyauqrAVQDZGGILQ3692-27-97 02:46:00 Test Item Value Reference Range Interpretation Comments MCH (test code = MCH) 28.8 pg 27.0-31.0 [facility] HospitalYlneoqtNTEKKNUUNS6678-56-56 02:46:00 Test Item Value Reference Range Interpretation Comments Hgb (test code = Hgb) 8.1 14.0-18.0 [facility] HospitalGnnurhsXNOSZQAJEJ6365-61-52 02:46:00 Test Item Value Reference Range Interpretation Comments MCV (test code = MCV) 81.9 80.0-94.0 [facility] HospitalExgvlfwSRSVDZPLAG4885-41-92 02:46:00 Test Item Value Reference Range Interpretation Comments Hct (test code = Hct) 23.2 42.0-54.0 [facility] QNJWGAN2145-27-25 02:46:00 Test Item Value Reference Range Interpretation Comments proBNP (test code = 16419 See_Comment [Automa emerson message] The proBNP) system which ge nerated this result tra nsmitted reference range : <=125. The reference r yared was not used to int erpret this result as erinn l/abnormal. [facility] HospitalLizhi VJSNIDE0840-83-81 02:46:00 Test Item Value Reference Range Interpretation Comments Troponin-I (test code no gt See_Comment [Auto mated message] The = Troponin-I) system which g enerated this result transmit emerson reference range : <=0.40. The reference r yared was not used to interpr et this result as erinn l/abnormal. [facility]CourseloadCARDIAC SWSASUQ8148-47-72 02:46:00 Test Item Value Reference Range Interpretation Comments Total CK (test code = Total CK) 91 12-191 [facility] [employer] [id number] 02:46:00 Test Item Value Reference Range Interpretation Comments Lipase Lvl (test code = Lipase Lvl) 95 73-393 [facility] [employer] BJFMB8487-98-40 02:46:00 Test Item Value Reference Range Interpretation Comments Globulin (test code = Globulin) 3.2 2.7-4.2 [facility]Pee[facility] [employer] [id number] 02:46:00 Test Item Value Reference Range Interpretation Comments A/G Ratio (test code = A/G Ratio) 0.9 1 0.7-1.6 [facility] [id number] 02:46:00 Test Item Value Reference Range Interpretation Comments B/C Ratio (test code = B/C Ratio) 5 1 6-25 [facility] [employer] [facility] [id number] 02:46:00 Test Item Value Reference Range Interpretation Comments AGAP (test code = AGAP) 18.7 10.0-20.0 [facility] [id number] 02:46:00 Test Item Value Reference Range Interpretation Comments eGFR (test code = eGFR) 2 [facility] [id number] 02:46:00 Test Item Value Reference Range Interpretation Comments Calcium Lvl (test code = Calcium Lvl) 7.6 8.5-10.5 [facility] [id number] 02:46:00 Test Item Value Reference Range Interpretation Comments CO2 (test code = CO2) 24 24-32 [facility] [id number] 02:46:00 Test Item Value Reference Range Interpretation Comments Chloride Lvl (test code = Chloride Lvl) 98 95-109 [facility] [employer] [id number] 02:46:00 Test Item Value Reference Range Interpretation Comments Potassium Lvl (test code = Potassium 4.7 3.5-5.1 Lvl) [facility]2018-10-14 02:46:00 Test Item Value Reference Range Interpretation Comments Sodium Lvl (test code = Sodium Lvl) 136 135-145 [facility]2018-10-14 02:46:00 Test Item Value Reference Range Interpretation Comments Albumin Lvl (test code = Albumin Lvl) 2.8 3.5-5.0 [facility]2018-10-14 02:46:00 Test Item Value Reference Range Interpretation Comments ALT (test code = ALT) 13 See_Comment [Auto mated message] The system which ge nerated this result transmit emerson reference range : <=65. The reference range was not used to interpr et this result as erinn l/abnormal. [facility]2018-10-14 02:46:00 Test Item Value Reference Range Interpretation Comments AST (test code = AST) 9 See_Comment [Auto mated message] The system which ge nerated this result transmit emerson reference range : <=37. The reference range was not used to interpr et this result as erinn l/abnormal. [facility]2018-10-14 02:46:00 Test Item Value Reference Range Interpretation Comments Alk Phos (test code = Alk Phos) 57 39-136 [facility]2018-10-14 02:46:00 Test Item Value Reference Range Interpretation Comments Total Protein (test code = Total 6.0 6.4-8.4 Protein) [facility]2018-10-14 02:46:00 Test Item Value Reference Range Interpretation Comments Bili Total (test code = Bili Total) 0.4 0.2-1.3 [facility]2018-10-14 02:46:00 Test Item Value Reference Range Interpretation Comments Creatinine Lvl (test code = Creatinine 18.60 0.50-1.40 Lvl) [facility]2018-10-14 02:46:00 Test Item Value Reference Range Interpretation Comments Glucose Lvl (test code = Glucose Lvl) 89 70-99 [facility]2018-10-14 02:46:00 Test Item Value Reference Range Interpretation Comments BUN (test code = BUN) 95 7-22 [facility] CenterMamtuzwRQVTUKADXE4168-23-82 02:46:00 Test Item Value Reference Range Interpretation Comments Segs (test code = Segs) 66.2 45.0-75.0 [facility] CenterXtuvmqzSAURFSUMEQ9391-00-00 02:46:00 Test Item Value Reference Range Interpretation Comments Lymphocytes (test code = Lymphocytes) 21.4 20.0-40.0 [facility] CenterEnzrmpxVHOUURMZNA9528-61-31 02:46:00 Test Item Value Reference Range Interpretation Comments Monocytes (test code = Monocytes) 7.7 2.0-12.0 [facility] CenterYxgqremDBAMEXCICZ9956-77-86 02:46:00 Test Item Value Reference Range Interpretation Comments Lymphocytes # (test code = Lymphocytes 0.9 1.0-5.5 #) [facility] CenterOojgbuoGUNGCORZPK7614-98-64 02:46:00 Test Item Value Reference Range Interpretation Comments Basophils (test code = 1.2 See_Comment [Aut omated message] The Basophils) system which ge nerated this result tra nsmitted reference range : <=1.0. The reference r yared was not used to int erpret this result as normal/abnormal . [facility] CenterWbayevgTKKFWOFXCI6894-98-01 02:46:00 Test Item Value Reference Range Interpretation Comments Monocytes # (test code 0.3 See_Comment [Aut omated message] The = Monocytes #) system which generated this result tra nsmitted reference range : <=0.8. The reference r yared was not used to int erpret this result as normal/abnormal . [facility] CenterOvukfpuARKVVFHATF5027-99-39 02:46:00 Test Item Value Reference Range Interpretation Comments Eosinophils # (test code 0.1 See_Comment [A utomated message] The = Eosinophils #) system [facility] generated this result tra nsmitted reference range : <=0.5. The reference r yared was not used to int erpret this result as normal/abnormal . [facility] CenterWrnbyrrOEKCPDGTKV2486-29-08 02:46:00 Test Item Value Reference Range Interpretation Comments Neutrophils # (test code = Neutrophils 2.7 1.5-8.1 #) [facility] CenterYzqvllfFDQJSZBUQJ3936-84-42 02:46:00 Test Item Value Reference Range Interpretation Comments Eosinophils (test code = 3.5 See_Comment [A utomated message] The Eosinophils) system which ge nerated this result tra nsmitted reference range : <=4.0. The reference r yared was not used to int erpret this result as normal/abnormal . [facility] CenterWqeoudbIDSIXBHYQW6758-83-78 02:46:00 Test Item Value Reference Range Interpretation Comments PT (test code = PT) 14.4 s 12.0-14.7 [facility] CenterAphwrnkJKPYLUCVLE1234-51-59 02:46:00 Test Item Value Reference Range Interpretation Comments INR (test code = INR) 1.12 1 0.85-1.17 [facility] CenterAutpcelBDWLYTZWZH6849-29-96 02:46:00 Test Item Value Reference Range Interpretation Comments PTT (test code = PTT) 37.1 s 22.9-35.8 [facility] CenterItlynnaKHWRFZVHVQ1922-82-71 02:46:00 Test Item Value Reference Range Interpretation Comments RDW (test code = RDW) 14.8 11.5-14.5 [facility] CenterAlqrmfrPDBSCVFIMD8104-34-97 02:46:00 Test Item Value Reference Range Interpretation Comments Platelet (test code = Platelet) 143 133-450 [facility] CenterJhwvkuaXXRKCXTDTQ7087-51-72 02:46:00 Test Item Value Reference Range Interpretation Comments MPV (test code = MPV) 7.6 7.4-10.4 [facility] CenterCthmmlxZRUFIGKEGG4357-70-58 02:46:00 Test Item Value Reference Range Interpretation Comments RBC (test code = RBC) 2.83 4.70-6.10 [facility] CenterNgajgsvFKZPEEWJSI9282-06-14 02:46:00 Test Item Value Reference Range Interpretation Comments WBC (test code = WBC) 4.1 3.7-10.4 [facility] CenterQxgosryFTBCTDGIJZ0220-53-30 02:46:00 Test Item Value Reference Range Interpretation Comments MCHC (test code = MCHC) 35.2 32.0-36.0 [facility] CenterCpojmucPXVGHOXSRP8815-13-62 02:46:00 Test Item Value Reference Range Interpretation Comments MCH (test code = MCH) 28.8 pg 27.0-31.0 [facility] CenterZzzwalaSWNBKQPYVA8203-11-12 02:46:00 Test Item Value Reference Range Interpretation Comments Hgb (test code = Hgb) 8.1 14.0-18.0 [facility] CenterWtiunahAQRVOPKISD0594-80-67 02:46:00 Test Item Value Reference Range Interpretation Comments MCV (test code = MCV) 81.9 80.0-94.0 [facility] CenterMjykwqyVHKPNXKXAC5051-54-36 02:46:00 Test Item Value Reference Range Interpretation Comments Hct (test code = Hct) 23.2 42.0-54.0 [facility]AINST[facility] - [facility] ETYHCMW2163-43-51 02:46:00 Test Item Value Reference Range Interpretation Comments proBNP (test code = 30090 See_Comment [Automa emerson message] The proBNP) system which ge nerated this result tra nsmitted reference range : <=125. The reference r yared was not used to int erpret this result as erinn l/abnormal. [facility] [employer] GXGDCWF3998-97-01 02:46:00 Test Item Value Reference Range Interpretation Comments Troponin-I (test code no gt See_Comment [Auto mated message] The = Troponin-I) system which g enerated this result transmit emerson reference range : <=0.40. The reference r yared was not used to interpr et this result as erinn l/abnormal. [facility] [employer] ZEOYJCC3734-81-38 02:46:00 Test Item Value Reference Range Interpretation Comments Total CK (test code = Total CK) 91 12-191 [facility] [employer]2018-10-14 02:46:00 Test Item Value Reference Range Interpretation Comments Lipase Lvl (test code = Lipase Lvl) 95 73-393 [facility] [employer]2018-10-14 02:46:00 Test Item Value Reference Range Interpretation Comments Globulin (test code = Globulin) 3.2 2.7-4.2 [facility] [employer]2018-10-14 02:46:00 Test Item Value Reference Range Interpretation Comments A/G Ratio (test code = A/G Ratio) 0.9 1 0.7-1.6 [facility] [employer]2018-10-14 02:46:00 Test Item Value Reference Range Interpretation Comments B/C Ratio (test code = B/C Ratio) 5 1 6-25 [facility] [employer]2018-10-14 02:46:00 Test Item Value Reference Range Interpretation Comments AGAP (test code = AGAP) 18.7 10.0-20.0 [facility] [employer]2018-10-14 02:46:00 Test Item Value Reference Range Interpretation Comments eGFR (test code = eGFR) 2 [facility] [employer]2018-10-14 02:46:00 Test Item Value Reference Range Interpretation Comments Calcium Lvl (test code = Calcium Lvl) 7.6 8.5-10.5 [facility]2018-10-14 02:46:00 Test Item Value Reference Range Interpretation Comments CO2 (test code = CO2) 24 24-32 [facility]2018-10-14 02:46:00 Test Item Value Reference Range Interpretation Comments Chloride Lvl (test code = Chloride Lvl) 98 95-109 [facility]2018-10-14 02:46:00 Test Item Value Reference Range Interpretation Comments Potassium Lvl (test code = Potassium 4.7 3.5-5.1 Lvl) [facility]2018-10-14 02:46:00 Test Item Value Reference Range Interpretation Comments Sodium Lvl (test code = Sodium Lvl) 136 135-145 [facility]2018-10-14 02:46:00 Test Item Value Reference Range Interpretation Comments Albumin Lvl (test code = Albumin Lvl) 2.8 3.5-5.0 [facility]2018-10-14 02:46:00 Test Item Value Reference Range Interpretation Comments ALT (test code = ALT) 13 See_Comment [Auto mated message] The system which ge nerated this result transmit emerson reference range : <=65. The reference range was not used to interpr et this result as erinn l/abnormal. [facility]2018-10-14 02:46:00 Test Item Value Reference Range Interpretation Comments AST (test code = AST) 9 See_Comment [Auto mated message] The system which ge nerated this result transmit emerson reference range : <=37. The reference range was not used to interpr et this result as erinn l/abnormal. [facility]2018-10-14 02:46:00 Test Item Value Reference Range Interpretation Comments Alk Phos (test code = Alk Phos) 57 39-136 [facility]2018-10-14 02:46:00 Test Item Value Reference Range Interpretation Comments Total Protein (test code = Total 6.0 6.4-8.4 Protein) [facility]2018-10-14 02:46:00 Test Item Value Reference Range Interpretation Comments Bili Total (test code = Bili Total) 0.4 0.2-1.3 [place] 362648-10-14 02:46:00 Test Item Value Reference Range Interpretation Comments Creatinine Lvl (test code = Creatinine 18.60 0.50-1.40 Lvl) [facility]2018-10-14 02:46:00 Test Item Value Reference Range Interpretation Comments Glucose Lvl (test code = Glucose Lvl) 89 70-99 [facility]2018-10-14 02:46:00 Test Item Value Reference Range Interpretation Comments BUN (test code = BUN) 95 7-22 [place] [address]-10-14 02:46:00 Test Item Value Reference Range Interpretation Comments Segs (test code = Segs) 66.2 45.0-75.0 [place] [address]-10-14 02:46:00 Test Item Value Reference Range Interpretation Comments Lymphocytes (test code = Lymphocytes) 21.4 20.0-40.0 [place] 101438-10-14 02:46:00 Test Item Value Reference Range Interpretation Comments Monocytes (test code = Monocytes) 7.7 2.0-12.0 [facility] CenterCohadjnFCFMUECAPA3628-74-28 02:46:00 Test Item Value Reference Range Interpretation Comments Lymphocytes # (test code = Lymphocytes 0.9 1.0-5.5 #) [facility] CenterOsdjzeaVTMMBDGQQC9573-59-14 02:46:00 Test Item Value Reference Range Interpretation Comments Basophils (test code = 1.2 See_Comment [Aut omated message] The Basophils) system which ge nerated this result tra nsmitted reference range : <=1.0. The reference r yared was not used to int erpret this result as normal/abnormal . [place] 101438-10-14 02:46:00 Test Item Value Reference Range Interpretation Comments Monocytes # (test code 0.3 See_Comment [Aut omated message] The = Monocytes #) system which generated this result tra nsmitted reference range : <=0.8. The reference r yared was not used to int erpret this result as normal/abnormal . [place] [address]-10-14 02:46:00 Test Item Value Reference Range Interpretation Comments Eosinophils # (test code 0.1 See_Comment [A utomated message] The = Eosinophils #) system whic h generated this result tra nsmitted reference range : <=0.5. The reference r yared was not used to int erpret this result as normal/abnormal . [facility] CenterMugsqwwAREHZCEILE2705-55-03 02:46:00 Test Item Value Reference Range Interpretation Comments Neutrophils # (test code = Neutrophils 2.7 1.5-8.1 #) [facility] CenterLshppfwMZTMDIVEZE1224-84-37 02:46:00 Test Item Value Reference Range Interpretation Comments Eosinophils (test code = 3.5 See_Comment [A utomated message] The Eosinophils) system which ge nerated this result tra nsmitted reference range : <=4.0. The reference r yared was not used to int erpret this result as normal/abnormal . [facility] CenterAwmxeouXYMFEJXSWZ2640-60-33 02:46:00 Test Item Value Reference Range Interpretation Comments PT (test code = PT) 14.4 s 12.0-14.7 [facility] CenterCsjaijmIMCHEXNVWA8877-17-08 02:46:00 Test Item Value Reference Range Interpretation Comments INR (test code = INR) 1.12 1 0.85-1.17 [facility] CenterTxwghxhALFVYDYUZK6721-37-53 02:46:00 Test Item Value Reference Range Interpretation Comments PTT (test code = PTT) 37.1 s 22.9-35.8 [facility] CenterOiiioblWHLQKDOLJP9074-66-23 02:46:00 Test Item Value Reference Range Interpretation Comments RDW (test code = RDW) 14.8 11.5-14.5 [facility] CenterNofnfrcFHRANLSHRL6157-26-82 02:46:00 Test Item Value Reference Range Interpretation Comments Platelet (test code = Platelet) 143 133-450 [facility] CenterEeqftdwGRFIITKNBE7124-54-25 02:46:00 Test Item Value Reference Range Interpretation Comments MPV (test code = MPV) 7.6 7.4-10.4 [facility] CenterDhajknxQZMOQHHSOO3591-02-35 02:46:00 Test Item Value Reference Range Interpretation Comments RBC (test code = RBC) 2.83 4.70-6.10 [facility] CenterMmnajoiRIJLEEHVXP7984-17-23 02:46:00 Test Item Value Reference Range Interpretation Comments WBC (test code = WBC) 4.1 3.7-10.4 [facility] CenterFojvvkpYOPBSASOCX9829-23-62 02:46:00 Test Item Value Reference Range Interpretation Comments MCHC (test code = MCHC) 35.2 32.0-36.0 [facility] CenterEibwtmtGRMZVYMGJZ0492-54-33 02:46:00 Test Item Value Reference Range Interpretation Comments MCH (test code = MCH) 28.8 pg 27.0-31.0 [facility] CenterMyyuulvSTCSCETHJG5626-87-15 02:46:00 Test Item Value Reference Range Interpretation Comments Hgb (test code = Hgb) 8.1 14.0-18.0 [facility] CenterAribkvnTKFFPZMFAT3281-00-63 02:46:00 Test Item Value Reference Range Interpretation Comments MCV (test code = MCV) 81.9 80.0-94.0 [facility] CenterLcmemfnVWJFGAUWUP9870-64-64 02:46:00 Test Item Value Reference Range Interpretation Comments Hct (test code = Hct) 23.2 42.0-54.0 [facility]2018-10-12 22:52:00 Test Item Value Reference Range Interpretation Comments BUN (test code = BUN) 86 7-22 [facility]2018-10-12 22:52:00 Test Item Value Reference Range Interpretation Comments Chloride Lvl (test code = Chloride Lvl) 97 95-109 [facility]2018-10-12 22:52:00 Test Item Value Reference Range Interpretation Comments Potassium Lvl (test code = Potassium 5.2 3.5-5.1 Lvl) [facility]2018-10-12 22:52:00 Test Item Value Reference Range Interpretation Comments Sodium Lvl (test code = Sodium Lvl) 135 135-145 [facility]2018-10-12 22:52:00 Test Item Value Reference Range Interpretation Comments Creatinine Lvl (test code = Creatinine 17.30 0.50-1.40 Lvl) [facility]2018-10-12 22:52:00 Test Item Value Reference Range Interpretation Comments Glucose Lvl (test code = Glucose Lvl) 98 70-99 [facility]2018-10-12 22:52:00 Test Item Value Reference Range Interpretation Comments eGFR (test code = eGFR) 3 [facility]2018-10-12 22:52:00 Test Item Value Reference Range Interpretation Comments Alk Phos (test code = Alk Phos) 70 39-136 [facility]2018-10-12 22:52:00 Test Item Value Reference Range Interpretation Comments AST (test code = AST) 10 See_Comment [Auto mated message] The system which ge nerated this result transmit emerson reference range : <=37. The reference range was not used to interpr et this result as erinn l/abnormal. [facility]2018-10-12 22:52:00 Test Item Value Reference Range Interpretation Comments Bili Total (test code = Bili Total) 0.4 0.2-1.3 [facility]2018-10-12 22:52:00 Test Item Value Reference Range Interpretation Comments Total Protein (test code = Total 6.8 6.4-8.4 Protein) [facility]2018-10-12 22:52:00 Test Item Value Reference Range Interpretation Comments Calcium Lvl (test code = Calcium Lvl) 8.1 8.5-10.5 [facility]2018-10-12 22:52:00 Test Item Value Reference Range Interpretation Comments CO2 (test code = CO2) 24 24-32 [facility]2018-10-12 22:52:00 Test Item Value Reference Range Interpretation Comments ALT (test code = ALT) 19 See_Comment [Auto mated message] The system which ge nerated this result transmit emerson reference range : <=65. The reference range was not used to interpr et this result as erinn l/abnormal. [facility]2018-10-12 22:52:00 Test Item Value Reference Range Interpretation Comments Albumin Lvl (test code = Albumin Lvl) 3.3 3.5-5.0 [facility]2018-10-12 22:52:00 Test Item Value Reference Range Interpretation Comments A/G Ratio (test code = A/G Ratio) 0.9 1 0.7-1.6 [facility]2018-10-12 22:52:00 Test Item Value Reference Range Interpretation Comments AGAP (test code = AGAP) 19.2 10.0-20.0 [facility]2018-10-12 22:52:00 Test Item Value Reference Range Interpretation Comments Globulin (test code = Globulin) 3.5 2.7-4.2 [facility]2018-10-12 22:52:00 Test Item Value Reference Range Interpretation Comments B/C Ratio (test code = B/C Ratio) 5 1 6-25 [facility]PaphgkvTQJXZBRHRQ1059-75-20 22:52:00 Test Item Value Reference Range Interpretation Comments Platelet (test code = Platelet) 184 133-450 [facility] CenterZekotriTQSDBQLZRR9464-76-00 22:52:00 Test Item Value Reference Range Interpretation Comments MPV (test code = MPV) 6.8 7.4-10.4 [facility] CenterKdvypqkZSDQQDVUKJ8776-67-07 22:52:00 Test Item Value Reference Range Interpretation Comments MCHC (test code = MCHC) 35.4 32.0-36.0 [facility] CenterShkcxmpYIZQDCJTCD3082-97-72 22:52:00 Test Item Value Reference Range Interpretation Comments RDW (test code = RDW) 15.1 11.5-14.5 [facility] CenterVqssddxJYBFMFGJUU2612-82-00 22:52:00 Test Item Value Reference Range Interpretation Comments Hct (test code = Hct) 26.1 42.0-54.0 [facility] CenterFynhwaeZCXKSZCYNH2061-23-63 22:52:00 Test Item Value Reference Range Interpretation Comments MCV (test code = MCV) 81.4 80.0-94.0 [facility] CenterDmcdgjwCOSQIRHLDU6343-91-71 22:52:00 Test Item Value Reference Range Interpretation Comments MCH (test code = MCH) 28.8 pg 27.0-31.0 [facility] CenterMxpzvmfDYCIYSOGUS2393-40-92 22:52:00 Test Item Value Reference Range Interpretation Comments WBC (test code = WBC) 5.4 3.7-10.4 [facility] CenterEtxugdyAXUWWYWTJY4937-56-62 22:52:00 Test Item Value Reference Range Interpretation Comments RBC (test code = RBC) 3.20 4.70-6.10 [facility] CenterOpriuopEEXLEZCCNM5475-08-61 22:52:00 Test Item Value Reference Range Interpretation Comments Hgb (test code = Hgb) 9.2 14.0-18.0 [facility] CenterFktgyymNZPULLQWEN3622-70-50 22:52:00 Test Item Value Reference Range Interpretation Comments Segs (test code = Segs) 74.0 45.0-75.0 [facility] CenterBovicinYLFBRWJUEA1358-50-72 22:52:00 Test Item Value Reference Range Interpretation Comments Lymphocytes (test code = Lymphocytes) 15.5 20.0-40.0 [facility] CenterBzftfuyRDPFIPAEEJ3691-25-49 22:52:00 Test Item Value Reference Range Interpretation Comments Monocytes (test code = Monocytes) 6.7 2.0-12.0 [facility] CenterWckzurlNFWOFEHJPU4776-56-73 22:52:00 Test Item Value Reference Range Interpretation Comments Eosinophils (test code = 2.8 See_Comment [A utomated message] The Eosinophils) system which ge nerated this result tra nsmitted reference range : <=4.0. The reference r yared was not used to int erpret this result as normal/abnormal . [facility] CenterJkfartsMOIUOMGPPA2508-72-97 22:52:00 Test Item Value Reference Range Interpretation Comments Basophils (test code = 1.0 See_Comment [Aut omated message] The Basophils) system which ge nerated this result tra nsmitted reference range : <=1.0. The reference r yared was not used to int erpret this result as normal/abnormal . [facility] CenterOlcvygtAEDZHQASML8518-18-78 22:52:00 Test Item Value Reference Range Interpretation Comments Neutrophils # (test code = Neutrophils 4.0 1.5-8.1 #) [facility] CenterMuynvjgHSLWUQTERT6159-31-17 22:52:00 Test Item Value Reference Range Interpretation Comments Basophils # (test code 0.1 See_Comment [Aut omated message] The = Basophils #) system which generated this result tra nsmitted reference range : <=0.2. The reference r yared was not used to int erpret this result as normal/abnormal . [facility] CenterSqlytqpHDDDPIKSDT4986-32-96 22:52:00 Test Item Value Reference Range Interpretation Comments Eosinophils # (test code 0.2 See_Comment [A utomated message] The = Eosinophils #) system wh h generated this result tra nsmitted reference range : <=0.5. The reference r yared was not used to int erpret this result as normal/abnormal . [facility] CenterWixaajnMQCYKRKZQQ5068-64-29 22:52:00 Test Item Value Reference Range Interpretation Comments Lymphocytes # (test code = Lymphocytes 0.8 1.0-5.5 #) [facility] CenterJficqugKYDIDJBLFU2017-22-68 22:52:00 Test Item Value Reference Range Interpretation Comments Monocytes # (test code 0.4 See_Comment [Aut omated message] The = Monocytes #) system which generated this result tra nsmitted reference range : <=0.8. The reference r yared was not used to int erpret this result as normal/abnormal . [facility]2018-10-12 22:52:00 Test Item Value Reference Range Interpretation Comments BUN (test code = BUN) 86 7-22 [facility]2018-10-12 22:52:00 Test Item Value Reference Range Interpretation Comments Chloride Lvl (test code = Chloride Lvl) 97 95-109 [facility]2018-10-12 22:52:00 Test Item Value Reference Range Interpretation Comments Potassium Lvl (test code = Potassium 5.2 3.5-5.1 Lvl) [facility]2018-10-12 22:52:00 Test Item Value Reference Range Interpretation Comments Sodium Lvl (test code = Sodium Lvl) 135 135-145 [facility]2018-10-12 22:52:00 Test Item Value Reference Range Interpretation Comments Creatinine Lvl (test code = Creatinine 17.30 0.50-1.40 Lvl) [facility]2018-10-12 22:52:00 Test Item Value Reference Range Interpretation Comments Glucose Lvl (test code = Glucose Lvl) 98 70-99 [facility]2018-10-12 22:52:00 Test Item Value Reference Range Interpretation Comments eGFR (test code = eGFR) 3 [facility]2018-10-12 22:52:00 Test Item Value Reference Range Interpretation Comments Alk Phos (test code = Alk Phos) 70 39-136 [facility]2018-10-12 22:52:00 Test Item Value Reference Range Interpretation Comments AST (test code = AST) 10 See_Comment [Auto mated message] The system which ge nerated this result transmit emerson reference range : <=37. The reference range was not used to interpr et this result as erinn l/abnormal. [facility]2018-10-12 22:52:00 Test Item Value Reference Range Interpretation Comments Bili Total (test code = Bili Total) 0.4 0.2-1.3 [facility]2018-10-12 22:52:00 Test Item Value Reference Range Interpretation Comments Total Protein (test code = Total 6.8 6.4-8.4 Protein) [facility]2018-10-12 22:52:00 Test Item Value Reference Range Interpretation Comments Calcium Lvl (test code = Calcium Lvl) 8.1 8.5-10.5 [facility]2018-10-12 22:52:00 Test Item Value Reference Range Interpretation Comments CO2 (test code = CO2) 24 24-32 [facility]2018-10-12 22:52:00 Test Item Value Reference Range Interpretation Comments ALT (test code = ALT) 19 See_Comment [Auto mated message] The system which ge nerated this result transmit emerson reference range : <=65. The reference range was not used to interpr et this result as erinn l/abnormal. [facility]2018-10-12 22:52:00 Test Item Value Reference Range Interpretation Comments Albumin Lvl (test code = Albumin Lvl) 3.3 3.5-5.0 [facility]2018-10-12 22:52:00 Test Item Value Reference Range Interpretation Comments A/G Ratio (test code = A/G Ratio) 0.9 1 0.7-1.6 [facility]2018-10-12 22:52:00 Test Item Value Reference Range Interpretation Comments AGAP (test code = AGAP) 19.2 10.0-20.0 [facility]2018-10-12 22:52:00 Test Item Value Reference Range Interpretation Comments Globulin (test code = Globulin) 3.5 2.7-4.2 [facility]2018-10-12 22:52:00 Test Item Value Reference Range Interpretation Comments B/C Ratio (test code = B/C Ratio) 5 1 6-25 [facility] CenterOtageojRYCRCIOULJ1884-20-99 22:52:00 Test Item Value Reference Range Interpretation Comments Platelet (test code = Platelet) 184 133-450 [facility] CenterFkgryfoWHCRXJCBOI1403-24-70 22:52:00 Test Item Value Reference Range Interpretation Comments MPV (test code = MPV) 6.8 7.4-10.4 [facility] CenterVdsriawNIAEVOAQGG0859-49-29 22:52:00 Test Item Value Reference Range Interpretation Comments MCHC (test code = MCHC) 35.4 32.0-36.0 [facility] CenterCihurybNLRRCNUXRD8590-88-22 22:52:00 Test Item Value Reference Range Interpretation Comments RDW (test code = RDW) 15.1 11.5-14.5 [facility] CenterIpougqxCINRPWSAWJ4173-65-74 22:52:00 Test Item Value Reference Range Interpretation Comments Hct (test code = Hct) 26.1 42.0-54.0 [facility] CenterAfhcljjJJGOUSGZPM4159-58-29 22:52:00 Test Item Value Reference Range Interpretation Comments MCV (test code = MCV) 81.4 80.0-94.0 [facility] CenterIlcmcyuGIASEFLFOP2564-88-26 22:52:00 Test Item Value Reference Range Interpretation Comments MCH (test code = MCH) 28.8 pg 27.0-31.0 [facility] CenterAqntkmgJVCKARKWLF6499-02-01 22:52:00 Test Item Value Reference Range Interpretation Comments WBC (test code = WBC) 5.4 3.7-10.4 [facility] CenterPjbdmgaKRGUMZVUKV5036-78-14 22:52:00 Test Item Value Reference Range Interpretation Comments RBC (test code = RBC) 3.20 4.70-6.10 [facility] CenterZlwtarwPIFRNMGZWQ0053-06-26 22:52:00 Test Item Value Reference Range Interpretation Comments Hgb (test code = Hgb) 9.2 14.0-18.0 [facility] CenterDuadqzkDTNWVDFPMN1723-90-11 22:52:00 Test Item Value Reference Range Interpretation Comments Segs (test code = Segs) 74.0 45.0-75.0 [facility] CenterHmithjpZKKIXQSXMJ4299-25-90 22:52:00 Test Item Value Reference Range Interpretation Comments Lymphocytes (test code = Lymphocytes) 15.5 20.0-40.0 [facility] CenterJgrnhvgCCZXAXGTLP9743-60-80 22:52:00 Test Item Value Reference Range Interpretation Comments Monocytes (test code = Monocytes) 6.7 2.0-12.0 [facility] CenterHffdxauLMUGYJDNTD3704-30-32 22:52:00 Test Item Value Reference Range Interpretation Comments Eosinophils (test code = 2.8 See_Comment [A utomated message] The Eosinophils) system which ge nerated this result tra nsmitted reference range : <=4.0. The reference r yared was not used to int erpret this result as normal/abnormal . [facility] CenterZaslibiIBPQZLKWBP3993-95-77 22:52:00 Test Item Value Reference Range Interpretation Comments Basophils (test code = 1.0 See_Comment [Aut omated message] The Basophils) system which ge nerated this result tra nsmitted reference range : <=1.0. The reference r yared was not used to int erpret this result as normal/abnormal . [facility] CenterDjyruwcNVDLRNLRJE2951-06-73 22:52:00 Test Item Value Reference Range Interpretation Comments Neutrophils # (test code = Neutrophils 4.0 1.5-8.1 #) [facility] CenterGficmzpXMMPPYEVCK8370-57-87 22:52:00 Test Item Value Reference Range Interpretation Comments Basophils # (test code 0.1 See_Comment [Aut omated message] The = Basophils #) system which generated this result tra nsmitted reference range : <=0.2. The reference r yared was not used to int erpret this result as normal/abnormal . [facility] CenterFwvhtfhLKKEVTLBNK3533-62-87 22:52:00 Test Item Value Reference Range Interpretation Comments Eosinophils # (test code 0.2 See_Comment [A utomated message] The = Eosinophils #) system whic h generated this result tra nsmitted reference range : <=0.5. The reference r yared was not used to int erpret this result as normal/abnormal . [facility] CenterSakcxpcBDZAMFXHGJ5890-18-21 22:52:00 Test Item Value Reference Range Interpretation Comments Lymphocytes # (test code = Lymphocytes 0.8 1.0-5.5 #) [facility] CenterTbmrqqnSWNWLWEZZQ8584-70-02 22:52:00 Test Item Value Reference Range Interpretation Comments Monocytes # (test code 0.4 See_Comment [Aut omated message] The = Monocytes #) system which generated this result tra nsmitted reference range : <=0.8. The reference r yared was not used to int erpret this result as normal/abnormal . [facility]2018-10-12 22:52:00 Test Item Value Reference Range Interpretation Comments BUN (test code = BUN) 86 7-22 [facility]2018-10-12 22:52:00 Test Item Value Reference Range Interpretation Comments Chloride Lvl (test code = Chloride Lvl) 97 95-109 [facility]2018-10-12 22:52:00 Test Item Value Reference Range Interpretation Comments Potassium Lvl (test code = Potassium 5.2 3.5-5.1 Lvl) [facility]2018-10-12 22:52:00 Test Item Value Reference Range Interpretation Comments Sodium Lvl (test code = Sodium Lvl) 135 135-145 [facility]2018-10-12 22:52:00 Test Item Value Reference Range Interpretation Comments Creatinine Lvl (test code = Creatinine 17.30 0.50-1.40 Lvl) [facility]2018-10-12 22:52:00 Test Item Value Reference Range Interpretation Comments Glucose Lvl (test code = Glucose Lvl) 98 70-99 [facility]2018-10-12 22:52:00 Test Item Value Reference Range Interpretation Comments eGFR (test code = eGFR) 3 [facility]2018-10-12 22:52:00 Test Item Value Reference Range Interpretation Comments Alk Phos (test code = Alk Phos) 70 39-136 [facility]2018-10-12 22:52:00 Test Item Value Reference Range Interpretation Comments AST (test code = AST) 10 See_Comment [Auto mated message] The system which ge nerated this result transmit emerson reference range : <=37. The reference range was not used to interpr et this result as erinn l/abnormal. [facility]2018-10-12 22:52:00 Test Item Value Reference Range Interpretation Comments Bili Total (test code = Bili Total) 0.4 0.2-1.3 [facility]2018-10-12 22:52:00 Test Item Value Reference Range Interpretation Comments Total Protein (test code = Total 6.8 6.4-8.4 Protein) [facility]2018-10-12 22:52:00 Test Item Value Reference Range Interpretation Comments Calcium Lvl (test code = Calcium Lvl) 8.1 8.5-10.5 [facility]2018-10-12 22:52:00 Test Item Value Reference Range Interpretation Comments CO2 (test code = CO2) 24 24-32 [place]648-10-12 22:52:00 Test Item Value Reference Range Interpretation Comments ALT (test code = ALT) 19 See_Comment [Auto mated message] The system which ge nerated this result transmit emerson reference range : <=65. The reference range was not used to interpr et this result as erinn l/abnormal. [place] [address]-10-12 22:52:00 Test Item Value Reference Range Interpretation Comments Albumin Lvl (test code = Albumin Lvl) 3.3 3.5-5.0 [facility]2018-10-12 22:52:00 Test Item Value Reference Range Interpretation Comments A/G Ratio (test code = A/G Ratio) 0.9 1 0.7-1.6 [facility]2018-10-12 22:52:00 Test Item Value Reference Range Interpretation Comments AGAP (test code = AGAP) 19.2 10.0-20.0 [facility]2018-10-12 22:52:00 Test Item Value Reference Range Interpretation Comments Globulin (test code = Globulin) 3.5 2.7-4.2 [facility]2018-10-12 22:52:00 Test Item Value Reference Range Interpretation Comments B/C Ratio (test code = B/C Ratio) 5 1 6-25 [facility] CenterWglxlaxJOTCUPUKDM3033-60-35 22:52:00 Test Item Value Reference Range Interpretation Comments Platelet (test code = Platelet) 184 133-450 [facility] CenterZlkwyleWFSQEGSHLB6616-95-30 22:52:00 Test Item Value Reference Range Interpretation Comments MPV (test code = MPV) 6.8 7.4-10.4 [facility] CenterWycuptpFIEVEXEJVO4213-66-97 22:52:00 Test Item Value Reference Range Interpretation Comments MCHC (test code = MCHC) 35.4 32.0-36.0 [facility] CenterUlifzoiCKEWBMOUIP2211-38-17 22:52:00 Test Item Value Reference Range Interpretation Comments RDW (test code = RDW) 15.1 11.5-14.5 [facility] CenterCcxjyezIICLOKLTAS2502-70-13 22:52:00 Test Item Value Reference Range Interpretation Comments Hct (test code = Hct) 26.1 42.0-54.0 [facility] CenterOaktoauMLTHAOPJXR1857-03-71 22:52:00 Test Item Value Reference Range Interpretation Comments MCV (test code = MCV) 81.4 80.0-94.0 [facility] CenterWkurfrkYATLUUITFL2624-04-05 22:52:00 Test Item Value Reference Range Interpretation Comments MCH (test code = MCH) 28.8 pg 27.0-31.0 [facility] CenterRsnobycOMHGYDBTDM4793-14-77 22:52:00 Test Item Value Reference Range Interpretation Comments WBC (test code = WBC) 5.4 3.7-10.4 [facility] CenterJipfmxnDMHXMHJNJD7145-27-84 22:52:00 Test Item Value Reference Range Interpretation Comments RBC (test code = RBC) 3.20 4.70-6.10 [facility] CenterJlnikhoUOTPEXENGJ5157-01-65 22:52:00 Test Item Value Reference Range Interpretation Comments Hgb (test code = Hgb) 9.2 14.0-18.0 [facility] CenterEzmbtoeSTPVLURXVC3963-09-23 22:52:00 Test Item Value Reference Range Interpretation Comments Segs (test code = Segs) 74.0 45.0-75.0 [facility] CenterSsphabnPLTEJQIKAL3375-30-35 22:52:00 Test Item Value Reference Range Interpretation Comments Lymphocytes (test code = Lymphocytes) 15.5 20.0-40.0 [facility] CenterQrpxocwBXWXAMIMUH2112-01-04 22:52:00 Test Item Value Reference Range Interpretation Comments Monocytes (test code = Monocytes) 6.7 2.0-12.0 [facility] CenterLbijpzuOVESFYPRRK7741-01-68 22:52:00 Test Item Value Reference Range Interpretation Comments Eosinophils (test code = 2.8 See_Comment [A utomated message] The Eosinophils) system which ge nerated this result tra nsmitted reference range : <=4.0. The reference r yared was not used to int erpret this result as normal/abnormal . [facility] CenterXnyvcnuAHMRERSCJM4790-75-21 22:52:00 Test Item Value Reference Range Interpretation Comments Basophils (test code = 1.0 See_Comment [Aut omated message] The Basophils) system which ge nerated this result tra nsmitted reference range : <=1.0. The reference r yared was not used to int erpret this result as normal/abnormal . [facility] CenterFsqsxdsGIAHPKOGKO7756-04-32 22:52:00 Test Item Value Reference Range Interpretation Comments Neutrophils # (test code = Neutrophils 4.0 1.5-8.1 #) [facility] CenterXuqtoprUYODWNPDMC2725-79-00 22:52:00 Test Item Value Reference Range Interpretation Comments Basophils # (test code 0.1 See_Comment [Aut omated message] The = Basophils #) system which generated this result tra nsmitted reference range : <=0.2. The reference r yared was not used to int erpret this result as normal/abnormal . [facility] CenterKnvuiwgRWPIKMEVSV9896-47-31 22:52:00 Test Item Value Reference Range Interpretation Comments Eosinophils # (test code 0.2 See_Comment [A utomated message] The = Eosinophils #) system whic h generated this result tra nsmitted reference range : <=0.5. The reference r yared was not used to int erpret this result as normal/abnormal . [facility] CenterZowgtyvZEMEJDWKZT7631-87-95 22:52:00 Test Item Value Reference Range Interpretation Comments Lymphocytes # (test code = Lymphocytes 0.8 1.0-5.5 #) [facility] CenterSqspytoPMQWKPKCYT7067-08-41 22:52:00 Test Item Value Reference Range Interpretation Comments Monocytes # (test code 0.4 See_Comment [Aut omated message] The = Monocytes #) system which generated this result tra nsmitted reference range : <=0.8. The reference r yared was not used to int erpret this result as normal/abnormal . [facility]2018-10-12 22:52:00 Test Item Value Reference Range Interpretation Comments BUN (test code = BUN) 86 7-22 [facility]2018-10-12 22:52:00 Test Item Value Reference Range Interpretation Comments Chloride Lvl (test code = Chloride Lvl) 97 95-109 [facility]2018-10-12 22:52:00 Test Item Value Reference Range Interpretation Comments Potassium Lvl (test code = Potassium 5.2 3.5-5.1 Lvl) [facility]2018-10-12 22:52:00 Test Item Value Reference Range Interpretation Comments Sodium Lvl (test code = Sodium Lvl) 135 135-145 [facility]2018-10-12 22:52:00 Test Item Value Reference Range Interpretation Comments Creatinine Lvl (test code = Creatinine 17.30 0.50-1.40 Lvl) [facility]2018-10-12 22:52:00 Test Item Value Reference Range Interpretation Comments Glucose Lvl (test code = Glucose Lvl) 98 70-99 [facility]2018-10-12 22:52:00 Test Item Value Reference Range Interpretation Comments eGFR (test code = eGFR) 3 [facility]2018-10-12 22:52:00 Test Item Value Reference Range Interpretation Comments Alk Phos (test code = Alk Phos) 70 39-136 [facility]2018-10-12 22:52:00 Test Item Value Reference Range Interpretation Comments AST (test code = AST) 10 See_Comment [Auto mated message] The system which ge nerated this result transmit emerson reference range : <=37. The reference range was not used to interpr et this result as erinn l/abnormal. [facility]2018-10-12 22:52:00 Test Item Value Reference Range Interpretation Comments Bili Total (test code = Bili Total) 0.4 0.2-1.3 [facility]2018-10-12 22:52:00 Test Item Value Reference Range Interpretation Comments Total Protein (test code = Total 6.8 6.4-8.4 Protein) [facility]2018-10-12 22:52:00 Test Item Value Reference Range Interpretation Comments Calcium Lvl (test code = Calcium Lvl) 8.1 8.5-10.5 [facility]2018-10-12 22:52:00 Test Item Value Reference Range Interpretation Comments CO2 (test code = CO2) 24 24-32 [facility]2018-10-12 22:52:00 Test Item Value Reference Range Interpretation Comments ALT (test code = ALT) 19 See_Comment [Auto mated message] The system which ge nerated this result transmit emerson reference range : <=65. The reference range was not used to interpr et this result as erinn l/abnormal. [facility]2018-10-12 22:52:00 Test Item Value Reference Range Interpretation Comments Albumin Lvl (test code = Albumin Lvl) 3.3 3.5-5.0 [facility]2018-10-12 22:52:00 Test Item Value Reference Range Interpretation Comments A/G Ratio (test code = A/G Ratio) 0.9 1 0.7-1.6 [facility]2018-10-12 22:52:00 Test Item Value Reference Range Interpretation Comments AGAP (test code = AGAP) 19.2 10.0-20.0 [facility]2018-10-12 22:52:00 Test Item Value Reference Range Interpretation Comments Globulin (test code = Globulin) 3.5 2.7-4.2 [facility]2018-10-12 22:52:00 Test Item Value Reference Range Interpretation Comments B/C Ratio (test code = B/C Ratio) 5 1 6-25 [facility] [id number] 22:52:00 Test Item Value Reference Range Interpretation Comments Platelet (test code = Platelet) 184 133-450 [facility] CenterFyogvflCVSCVLAPRF1872-81-67 22:52:00 Test Item Value Reference Range Interpretation Comments MPV (test code = MPV) 6.8 7.4-10.4 [facility] CenterAxhhalwXRAWQNEPKC5824-93-85 22:52:00 Test Item Value Reference Range Interpretation Comments MCHC (test code = MCHC) 35.4 32.0-36.0 [facility] CenterZxvcmfaSCHTUTSSZD6095-89-94 22:52:00 Test Item Value Reference Range Interpretation Comments RDW (test code = RDW) 15.1 11.5-14.5 [facility] CenterCghwrwqLLFQDGNXEY8795-91-57 22:52:00 Test Item Value Reference Range Interpretation Comments Hct (test code = Hct) 26.1 42.0-54.0 [facility] Cent[id number] 22:52:00 Test Item Value Reference Range Interpretation Comments MCV (test code = MCV) 81.4 80.0-94.0 [facility] Cent[id number] 22:52:00 Test Item Value Reference Range Interpretation Comments MCH (test code = MCH) 28.8 pg 27.0-31.0 [facility] CenterTaynebeBSPWLCBQPP2702-65-47 22:52:00 Test Item Value Reference Range Interpretation Comments WBC (test code = WBC) 5.4 3.7-10.4 [facility] Cent[id number] 22:52:00 Test Item Value Reference Range Interpretation Comments RBC (test code = RBC) 3.20 4.70-6.10 [facility] CenterAjptrkpIFGAZTCTAC0250-01-87 22:52:00 Test Item Value Reference Range Interpretation Comments Hgb (test code = Hgb) 9.2 14.0-18.0 [facility] CenterCkbvkiwLYKYEORWAE8509-67-71 22:52:00 Test Item Value Reference Range Interpretation Comments Segs (test code = Segs) 74.0 45.0-75.0 [facility] CenterSmybujfJDVGJSHWOH2793-12-58 22:52:00 Test Item Value Reference Range Interpretation Comments Lymphocytes (test code = Lymphocytes) 15.5 20.0-40.0 [facility] CenterUbxbeweMHBFGVVFQS0252-32-45 22:52:00 Test Item Value Reference Range Interpretation Comments Monocytes (test code = Monocytes) 6.7 2.0-12.0 [facility] CenterFzcmhbtNADIXFJTDD2265-69-55 22:52:00 Test Item Value Reference Range Interpretation Comments Eosinophils (test code = 2.8 See_Comment [A utomated message] The Eosinophils) system which ge nerated this result tra nsmitted reference range : <=4.0. The reference r yared was not used to int erpret this result as normal/abnormal . [facility] CenterPxuvyeuMUHWXYCTNC7192-71-48 22:52:00 Test Item Value Reference Range Interpretation Comments Basophils (test code = 1.0 See_Comment [Aut omated message] The Basophils) system which ge nerated this result tra nsmitted reference range : <=1.0. The reference r yared was not used to int erpret this result as normal/abnormal . [facility] CenterMhswbhyQYBAYSZVHK9678-00-23 22:52:00 Test Item Value Reference Range Interpretation Comments Neutrophils # (test code = Neutrophils 4.0 1.5-8.1 #) [facility] Cent[id number] 22:52:00 Test Item Value Reference Range Interpretation Comments Basophils # (test code 0.1 See_Comment [Aut omated message] The = Basophils #) system which generated this result tra nsmitted reference range : <=0.2. The reference r yared was not used to int erpret this result as normal/abnormal . [facility] CenterTmhjefjXIJLQEQLMJ6536-86-01 22:52:00 Test Item Value Reference Range Interpretation Comments Eosinophils # (test code 0.2 See_Comment [A utomated message] The = Eosinophils #) system whic h generated this result tra nsmitted reference range : <=0.5. The reference r yared was not used to int erpret this result as normal/abnormal . [facility] CenterAzlynvoPWITDFDHTK8306-38-24 22:52:00 Test Item Value Reference Range Interpretation Comments Lymphocytes # (test code = Lymphocytes 0.8 1.0-5.5 #) [facility] CenterAufzkkhVAOYXOEPXA4326-12-49 22:52:00 Test Item Value Reference Range Interpretation Comments Monocytes # (test code 0.4 See_Comment [Aut omated message] The = Monocytes #) system which generated this result tra nsmitted reference range : <=0.8. The reference r yared was not used to int erpret this result as normal/abnormal . [facility] [id number] 15:54:00 Test Item Value Reference Range Interpretation Comments Test Name (test code = HLA TYPING RESULTS Test Name) [facility] LAB [id number] 15:54:00 Test Item Value Reference Range Interpretation Comments Test Name (test code = HLA TYPING RESULTS Test Name) [facility] LAB [id number] 15:54:00 Test Item Value Reference Range Interpretation Comments Test Name (test code = HLA TYPING RESULTS Test Name) [facility] LAB [id number] 15:54:00 Test Item Value Reference Range Interpretation Comments Test Name (test code = HLA TYPING RESULTS Test Name) [facility] BANK [id number] 15:20:00 Test Item Value Reference Range Interpretation Comments ABO/RH Confirm (test code = ABO/RH O POS Confirm) [facility] AND [id number] 15:20:00 Test Item Value Reference Range Interpretation Comments UA Renal Epi (test code = UA Renal Epi) RARE [facility] AND [id number] 15:20:00 Test Item Value Reference Range Interpretation Comments UA Urobilinogen (test code = UA <=1.0 mg/dL 0.1-1.0 Urobilinogen) [facility] AND [id number] 15:20:00 Test Item Value Reference Range Interpretation Comments UA Glucose (test code = UA Glucose) 100mg/dL [facility] AND [id number] 15:20:00 Test Item Value Reference Range Interpretation Comments UA Sq Epi (test code = UA Sq Moderate /LPF Epi) [facility] AND [id number] 15:20:00 Test Item Value Reference Range Interpretation Comments UA Leuk Est (test code Small *ABN*(05/23/18 = UA Leuk Est) 10:20 AM) [facility] AND [id number] 15:20:00 Test Item Value Reference Range Interpretation Comments UA Ketones (test code = UA Negative mg/dL Ketones) [facility] AND [id number] 15:20:00 Test Item Value Reference Range Interpretation Comments UA RBC (test code = no gt See_Comment [Automa emerson message] The UA RBC) system which ge nerated this result transmit emerson reference range : <=2. The reference range was not used to interpr et this result as erinn l/abnormal. [facility] AND [id number] 15:20:00 Test Item Value Reference Range Interpretation Comments UA WBC (test code = 9 See_Comment [Automa emerson message] The UA WBC) system which ge nerated this result transmit emerson reference range : <=5. The reference range was not used to interpr et this result as erinn l/abnormal. [facility] AND [id number] 15:20:00 Test Item Value Reference Range Interpretation Comments UA Nitrite (test code Negative (05/23/18 10:20 = UA Nitrite) AM) [facility] AND [id number] 15:20:00 Test Item Value Reference Range Interpretation Comments UA Blood (test code = Trace *ABN*(05/23/18 UA Blood) 10:20 AM) [facility] AND [id number] 15:20:00 Test Item Value Reference Range Interpretation Comments UA Bili (test code = Negative *NA*(05/23/18 UA Bili) 10:20 AM) [facility] AND [id number] 15:20:00 Test Item Value Reference Range Interpretation Comments UA Mucus (test code = UA Mucus) Few /LPF [facility] AND [id number] 15:20:00 Test Item Value Reference Range Interpretation Comments UA Protein (test code = UA >=300 mg/dL Protein) [facility] AND [id number] 15:20:00 Test Item Value Reference Range Interpretation Comments UA pH (test code = UA pH) 6.5 1 5.0-8.0 [facility] AND [id number] 15:20:00 Test Item Value Reference Range Interpretation Comments UA Spec Grav (test code = UA Spec 1.008 1 Grav) [facility] AND [id number] 15:20:00 Test Item Value Reference Range Interpretation Comments UA Turbidity (test code Slight *ABN*(05/23/18 = UA Turbidity) 10:20 AM) [facility] AND [id number] 15:20:00 Test Item Value Reference Range Interpretation Comments UA Color (test code = Yellow *NA*(05/23/18 UA Color) 10:20 AM) [facility] [id number] 15:20:00 Test Item Value Reference Range Interpretation Comments U Microalb (test code = U Microalb) 2940.0 [facility] [id number] 15:20:00 Test Item Value Reference Range Interpretation Comments U Prot/Creat (test code = U 6.61 1 Prot/Creat) [facility] [id number] 15:20:00 Test Item Value Reference Range Interpretation Comments U Creatinine (test code = U Creatinine) 55.00 [facility]2018-08-15 15:20:00 Test Item Value Reference Range Interpretation Comments U Protein (test code = U Protein) 363.8 [facility] [id number] 15:20:00 Test Item Value Reference Range Interpretation Comments ABO/RH Confirm (test code = ABO/RH O POS Confirm) [facility] AND [id number] 15:20:00 Test Item Value Reference Range Interpretation Comments UA Renal Epi (test code = UA Renal Epi) RARE [facility] AND [id number] 15:20:00 Test Item Value Reference Range Interpretation Comments UA Urobilinogen (test code = UA <=1.0 mg/dL 0.1-1.0 Urobilinogen) [facility] AND [id number] 15:20:00 Test Item Value Reference Range Interpretation Comments UA Glucose (test code = UA Glucose) 100mg/dL [facility] AND [id number] 15:20:00 Test Item Value Reference Range Interpretation Comments UA Sq Epi (test code = UA Sq Moderate /LPF Epi) [facility] AND [id number] 15:20:00 Test Item Value Reference Range Interpretation Comments UA Leuk Est (test code Small *ABN*(05/23/18 = UA Leuk Est) 10:20 AM) [facility] AND [id number] 15:20:00 Test Item Value Reference Range Interpretation Comments UA Ketones (test code = UA Negative mg/dL Ketones) [facility] AND [id number] 15:20:00 Test Item Value Reference Range Interpretation Comments UA RBC (test code = no gt See_Comment [Automa meerson message] The UA RBC) system which ge nerated this result transmit emerson reference range : <=2. The reference range was not used to interpr et this result as erinn l/abnormal. [facility] AND [id number] 15:20:00 Test Item Value Reference Range Interpretation Comments UA WBC (test code = 9 See_Comment [Automa emerson message] The UA WBC) system which ge nerated this result transmit emerson reference range : <=5. The reference range was not used to interpr et this result as erinn l/abnormal. [facility] AND [id number] 15:20:00 Test Item Value Reference Range Interpretation Comments UA Nitrite (test code Negative (05/23/18 10:20 = UA Nitrite) AM) [facility] AND [id number] 15:20:00 Test Item Value Reference Range Interpretation Comments UA Blood (test code = Trace *ABN*(05/23/18 UA Blood) 10:20 AM) [facility] AND [id number] 15:20:00 Test Item Value Reference Range Interpretation Comments UA Bili (test code = Negative *NA*(05/23/18 UA Bili) 10:20 AM) [facility] AND [id number] 15:20:00 Test Item Value Reference Range Interpretation Comments UA Mucus (test code = UA Mucus) Few /LPF [facility] AND [id number] 15:20:00 Test Item Value Reference Range Interpretation Comments UA Protein (test code = UA >=300 mg/dL Protein) [facility] AND [id number] 15:20:00 Test Item Value Reference Range Interpretation Comments UA pH (test code = UA pH) 6.5 1 5.0-8.0 [facility] AND [id number] 15:20:00 Test Item Value Reference Range Interpretation Comments UA Spec Grav (test code = UA Spec 1.008 1 Grav) [facility] AND [id number] 15:20:00 Test Item Value Reference Range Interpretation Comments UA Turbidity (test code Slight *ABN*(05/23/18 = UA Turbidity) 10:20 AM) [facility] AND [id number] 15:20:00 Test Item Value Reference Range Interpretation Comments UA Color (test code = Yellow *NA*(05/23/18 UA Color) 10:20 AM) [facility] [id number] 15:20:00 Test Item Value Reference Range Interpretation Comments U Microalb (test code = U Microalb) 2940.0 [facility] [id number] 15:20:00 Test Item Value Reference Range Interpretation Comments U Prot/Creat (test code = U 6.61 1 Prot/Creat) [facility] [id number] 15:20:00 Test Item Value Reference Range Interpretation Comments U Creatinine (test code = U Creatinine) 55.00 [facility]2018-08-15 15:20:00 Test Item Value Reference Range Interpretation Comments U Protein (test code = U Protein) 363.8 [facility] [id number] 15:20:00 Test Item Value Reference Range Interpretation Comments ABO/RH Confirm (test code = ABO/RH O POS Confirm) [facility] AND [id number] 15:20:00 Test Item Value Reference Range Interpretation Comments UA Renal Epi (test code = UA Renal Epi) RARE [facility] AND [id number] 15:20:00 Test Item Value Reference Range Interpretation Comments UA Urobilinogen (test code = UA <=1.0 mg/dL 0.1-1.0 Urobilinogen) [facility] AND [id number] 15:20:00 Test Item Value Reference Range Interpretation Comments UA Glucose (test code = UA Glucose) 100mg/dL [facility] AND [id number] 15:20:00 Test Item Value Reference Range Interpretation Comments UA Sq Epi (test code = UA Sq Moderate /LPF Epi) [facility] AND [id number] 15:20:00 Test Item Value Reference Range Interpretation Comments UA Leuk Est (test code Small *ABN*(05/23/18 = UA Leuk Est) 10:20 AM) [facility] AND [id number] 15:20:00 Test Item Value Reference Range Interpretation Comments UA Ketones (test code = UA Negative mg/dL Ketones) [facility] AND [id number] 15:20:00 Test Item Value Reference Range Interpretation Comments UA RBC (test code = no gt See_Comment [Automa emerson message] The UA RBC) system which ge nerated this result transmit emerson reference range : <=2. The reference range was not used to interpr et this result as erinn l/abnormal. [facility] AND [id number] 15:20:00 Test Item Value Reference Range Interpretation Comments UA WBC (test code = 9 See_Comment [Automa emerson message] The UA WBC) system which ge nerated this result transmit emerson reference range : <=5. The reference range was not used to interpr et this result as erinn l/abnormal. [facility] AND [id number] 15:20:00 Test Item Value Reference Range Interpretation Comments UA Nitrite (test code Negative (05/23/18 10:20 = UA Nitrite) AM) [facility] AND [id number] 15:20:00 Test Item Value Reference Range Interpretation Comments UA Blood (test code = Trace *ABN*(05/23/18 UA Blood) 10:20 AM) [facility] AND [id number] 15:20:00 Test Item Value Reference Range Interpretation Comments UA Bili (test code = Negative *NA*(05/23/18 UA Bili) 10:20 AM) [facility] AND [id number] 15:20:00 Test Item Value Reference Range Interpretation Comments UA Mucus (test code = UA Mucus) Few /LPF [facility] AND [id number] 15:20:00 Test Item Value Reference Range Interpretation Comments UA Protein (test code = UA >=300 mg/dL Protein) [facility] AND [id number] 15:20:00 Test Item Value Reference Range Interpretation Comments UA pH (test code = UA pH) 6.5 1 5.0-8.0 [facility] AND [id number] 15:20:00 Test Item Value Reference Range Interpretation Comments UA Spec Grav (test code = UA Spec 1.008 1 Grav) [facility] AND [id number] 15:20:00 Test Item Value Reference Range Interpretation Comments UA Turbidity (test code Slight *ABN*(05/23/18 = UA Turbidity) 10:20 AM) [facility] AND [id number] 15:20:00 Test Item Value Reference Range Interpretation Comments UA Color (test code = Yellow *NA*(05/23/18 UA Color) 10:20 AM) [facility] [id number] 15:20:00 Test Item Value Reference Range Interpretation Comments U Microalb (test code = U Microalb) 2940.0 [facility] [id number] 15:20:00 Test Item Value Reference Range Interpretation Comments U Prot/Creat (test code = U 6.61 1 Prot/Creat) [facility] [id number] 15:20:00 Test Item Value Reference Range Interpretation Comments U Creatinine (test code = U Creatinine) 55.00 [facility]2018-08-15 15:20:00 Test Item Value Reference Range Interpretation Comments U Protein (test code = U Protein) 363.8 [facility] [id number] 15:20:00 Test Item Value Reference Range Interpretation Comments ABO/RH Confirm (test code = ABO/RH O POS Confirm) [facility] AND [id number] 15:20:00 Test Item Value Reference Range Interpretation Comments UA Renal Epi (test code = UA Renal Epi) RARE [facility] AND [id number] 15:20:00 Test Item Value Reference Range Interpretation Comments UA Urobilinogen (test code = UA <=1.0 mg/dL 0.1-1.0 Urobilinogen) [facility] AND [id number] 15:20:00 Test Item Value Reference Range Interpretation Comments UA Glucose (test code = UA Glucose) 100mg/dL [facility] AND [id number] 15:20:00 Test Item Value Reference Range Interpretation Comments UA Sq Epi (test code = UA Sq Moderate /LPF Epi) [facility] AND [id number] 15:20:00 Test Item Value Reference Range Interpretation Comments UA Leuk Est (test code Small *ABN*(05/23/18 = UA Leuk Est) 10:20 AM) [facility] AND [id number] 15:20:00 Test Item Value Reference Range Interpretation Comments UA Ketones (test code = UA Negative mg/dL Ketones) [facility] AND [id number] 15:20:00 Test Item Value Reference Range Interpretation Comments UA RBC (test code = no gt See_Comment [Automa emerson message] The UA RBC) system which ge nerated this result transmit emerson reference range : <=2. The reference range was not used to interpr et this result as erinn l/abnormal. [facility] AND [id number] 15:20:00 Test Item Value Reference Range Interpretation Comments UA WBC (test code = 9 See_Comment [Automa emerson message] The UA WBC) system which ge nerated this result transmit emerson reference range : <=5. The reference range was not used to interpr et this result as erinn l/abnormal. [facility] AND [id number] 15:20:00 Test Item Value Reference Range Interpretation Comments UA Nitrite (test code Negative (05/23/18 10:20 = UA Nitrite) AM) [facility] AND [id number] 15:20:00 Test Item Value Reference Range Interpretation Comments UA Blood (test code = Trace *ABN*(05/23/18 UA Blood) 10:20 AM) [facility] AND [id number] 15:20:00 Test Item Value Reference Range Interpretation Comments UA Bili (test code = Negative *NA*(05/23/18 UA Bili) 10:20 AM) [facility] AND [id number] 15:20:00 Test Item Value Reference Range Interpretation Comments UA Mucus (test code = UA Mucus) Few /LPF [facility] AND [id number] 15:20:00 Test Item Value Reference Range Interpretation Comments UA Protein (test code = UA >=300 mg/dL Protein) [facility] AND [id number] 15:20:00 Test Item Value Reference Range Interpretation Comments UA pH (test code = UA pH) 6.5 1 5.0-8.0 [facility] AND [id number] 15:20:00 Test Item Value Reference Range Interpretation Comments UA Spec Grav (test code = UA Spec 1.008 1 Grav) [facility] AND [id number] 15:20:00 Test Item Value Reference Range Interpretation Comments UA Turbidity (test code Slight *ABN*(05/23/18 = UA Turbidity) 10:20 AM) [facility] AND [id number] 15:20:00 Test Item Value Reference Range Interpretation Comments UA Color (test code = Yellow *NA*(05/23/18 UA Color) 10:20 AM) [facility]2018-08-15 15:20:00 Test Item Value Reference Range Interpretation Comments U Microalb (test code = U Microalb) 2940.0 [facility]2018-08-15 15:20:00 Test Item Value Reference Range Interpretation Comments U Prot/Creat (test code = U 6.61 1 Prot/Creat) [facility]2018-08-15 15:20:00 Test Item Value Reference Range Interpretation Comments U Creatinine (test code = U Creatinine) 55.00 [facility]2018-08-15 15:20:00 Test Item Value Reference Range Interpretation Comments U Protein (test code = U Protein) 363.8 [facility] [id number] 14:55:00 Test Item Value Reference Range Interpretation Comments % Satur Fe (test code = % Satur Fe) 35 12-57 [facility] [id number] 14:55:00 Test Item Value Reference Range Interpretation Comments UIBC (test code = UIBC) 179 110-370 [facility] [id number] 14:55:00 Test Item Value Reference Range Interpretation Comments TIBC (test code = TIBC) 276 228-428 [facility] [id number] 14:55:00 Test Item Value Reference Range Interpretation Comments Iron (test code = Iron) 97 45-160 [facility] [id number] 14:55:00 Test Item Value Reference Range Interpretation Comments Ferritin Lvl (test code = Ferritin Lvl) 292 22-275 [facility] BANK [id number] 14:55:00 Test Item Value Reference Range Interpretation Comments OP ABORh Int (test code = OP ABORh Int) O POS [facility] [id number] 14:55:00 Test Item Value Reference Range Interpretation Comments Phosphorus (test code = Phosphorus) 8.0 2.5-4.5 [facility]2018-08-15 14:55:00 Test Item Value Reference Range Interpretation Comments Magnesium Lvl (test code = Magnesium 2.5 1.8-2.4 Lvl) [id number] 14:55:00 Test Item Value Reference Range Interpretation Comments Vitamin D, 25-OH, Total (test code = 26.3 30.0-100.0 Vitamin D, 25-OH, Total) [facility]2018-08-15 14:55:00 Test Item Value Reference Range Interpretation Comments Uric Acid (test code = Uric Acid) 3.5 3.8-8.0 [place] [id number] 14:55:00 Test Item Value Reference Range Interpretation Comments eGFR (test code = eGFR) 7 [facility]2018-08-15 14:55:00 Test Item Value Reference Range Interpretation Comments Alk Phos (test code = Alk Phos) 80 39-136 [facility]2018-08-15 14:55:00 Test Item Value Reference Range Interpretation Comments Bili Total (test code = Bili Total) 0.4 0.2-1.3 [facility]2018-08-15 14:55:00 Test Item Value Reference Range Interpretation Comments Albumin Lvl (test code = Albumin Lvl) 4.3 3.5-5.0 [facility]2018-08-15 14:55:00 Test Item Value Reference Range Interpretation Comments ALT (test code = ALT) 22 See_Comment [Auto mated message] The system which ge nerated this result transmit emerson reference range : <=65. The reference range was not used to interpr et this result as erinn l/abnormal. [facility]2018-08-15 14:55:00 Test Item Value Reference Range Interpretation Comments Calcium Lvl (test code = Calcium Lvl) 8.8 8.5-10.5 [facility]2018-08-15 14:55:00 Test Item Value Reference Range Interpretation Comments Total Protein (test code = Total 8.1 6.4-8.4 Protein) [place] [id number] 14:55:00 Test Item Value Reference Range Interpretation Comments AST (test code = AST) 12 See_Comment [Auto mated message] The system which ge nerated this result transmit emerson reference range : <=37. The reference range was not used to interpr et this result as erinn l/abnormal. [facility] [employer] [id number] 14:55:00 Test Item Value Reference Range Interpretation Comments CO2 (test code = CO2) 26 24-32 [facility] [id number] 14:55:00 Test Item Value Reference Range Interpretation Comments Chloride Lvl (test code = Chloride Lvl) 97 95-109 [facility] [id number] 14:55:00 Test Item Value Reference Range Interpretation Comments Potassium Lvl (test code = Potassium 3.8 3.5-5.1 Lvl) [facility] [id number] 14:55:00 Test Item Value Reference Range Interpretation Comments Creatinine Lvl (test code = Creatinine 8.22 0.50-1.40 Lvl) [facility] [id number] 14:55:00 Test Item Value Reference Range Interpretation Comments Sodium Lvl (test code = Sodium Lvl) 136 135-145 [facility] [id number] 14:55:00 Test Item Value Reference Range Interpretation Comments BUN (test code = BUN) 59 7-22 [facility] [id number] 14:55:00 Test Item Value Reference Range Interpretation Comments Glucose Lvl (test code = Glucose Lvl) 98 70-99 [facility] [id number] 14:55:00 Test Item Value Reference Range Interpretation Comments Globulin (test code = Globulin) 3.8 2.7-4.2 [facility] [employer] [id number] 14:55:00 Test Item Value Reference Range Interpretation Comments A/G Ratio (test code = A/G Ratio) 1.1 1 0.7-1.6 [facility] [employer] [id number] 14:55:00 Test Item Value Reference Range Interpretation Comments AGAP (test code = AGAP) 16.8 10.0-20.0 [facility] [employer] [id number] 14:55:00 Test Item Value Reference Range Interpretation Comments B/C Ratio (test code = B/C Ratio) 7 1 6-25 [facility] [id number] 14:55:00 Test Item Value Reference Range Interpretation Comments Phencyclidine Scr (test Negative (05/23/18 code = Phencyclidine Scr) 9:55 AM) [facility] [id number] 14:55:00 Test Item Value Reference Range Interpretation Comments 6-Acetylmor Scr (test Negative (05/23/18 9:55 code = 6-Acetylmor AM) Scr) [facility] [id number] 14:55:00 Test Item Value Reference Range Interpretation Comments Opiate Scr (test code Positive *ABN*(05/23/18 = Opiate Scr) 9:55 AM) [facility] [id number] 14:55:00 Test Item Value Reference Range Interpretation Comments Methadone Scr (test Negative (05/23/18 9:55 code = Methadone Scr) AM) [facility] [id number] 14:55:00 Test Item Value Reference Range Interpretation Comments Rosa M Scr (test code = Negative (05/23/18 9:55 Rosa M Scr) AM) [facility] [id number] 14:55:00 Test Item Value Reference Range Interpretation Comments Cutoff Values (test See Note (05/23/18 9:55 code = Cutoff Values) AM) [facility] [id number] 14:55:00 Test Item Value Reference Range Interpretation Comments Cocaine Scr (test code Negative (05/23/18 9:55 = Cocaine Scr) AM) [facility] [id number] 14:55:00 Test Item Value Reference Range Interpretation Comments Amph Scr (test code = Negative (05/23/18 9:55 Amph Scr) AM) [facility] [id number] 14:55:00 Test Item Value Reference Range Interpretation Comments Cannab Scr (test code Negative (05/23/18 9:55 = Cannab Scr) AM) [facility] [id number] 14:55:00 Test Item Value Reference Range Interpretation Comments Benzodiaz Scr (test Positive *ABN*(05/23/18 code = Benzodiaz Scr) 9:55 AM) [facility] [id number] 14:55:00 Test Item Value Reference Range Interpretation Comments Opiate Qnt (test code = See Note 2(05/23/18 Opiate Qnt) 9:55 AM) [facility] [id number] 14:55:00 Test Item Value Reference Range Interpretation Comments Benzodiaz Qnt (test code See Note 1(05/23/18 = Benzodiaz Qnt) 9:55 AM) [facility]GjydzsjCBRMOLWEZR8590-27-07 14:55:00 Test Item Value Reference Range Interpretation Comments Eosinophils # (test code 0.3 See_Comment [A utomated message] The = Eosinophils #) system [facility] h generated this result tra nsmitted reference range : <=0.5. The reference r yared was not used to int erpret this result as normal/abnormal . [facility] [id number] 14:55:00 Test Item Value Reference Range Interpretation Comments Basophils # (test code 0.1 See_Comment [Aut omated message] The = Basophils #) system which generated this result tra nsmitted reference range : <=0.2. The reference r yared was not used to int erpret this result as normal/abnormal . [facility] CenterSnsbobeABFILYPYQS5794-85-92 14:55:00 Test Item Value Reference Range Interpretation Comments Neutrophils # (test code = Neutrophils 3.9 1.5-8.1 #) [facility] CenterRmtpdbyXDYIZWPHUF3607-21-10 14:55:00 Test Item Value Reference Range Interpretation Comments Lymphocytes # (test code = Lymphocytes 1.3 1.0-5.5 #) [facility] [id number] 14:55:00 Test Item Value Reference Range Interpretation Comments Monocytes # (test code 0.5 See_Comment [Aut omated message] The = Monocytes #) system which generated this result tra nsmitted reference range : <=0.8. The reference r yared was not used to int erpret this result as normal/abnormal . [facility] CenterIvjxhglGBZKKGPZHT8095-76-86 14:55:00 Test Item Value Reference Range Interpretation Comments Basophils (test code = 0.9 See_Comment [Aut omated message] The Basophils) system which ge nerated this result tra nsmitted reference range : <=1.0. The reference r yared was not used to int erpret this result as normal/abnormal . [facility] CenterQmhdklhMPAZFCJMHF3904-65-89 14:55:00 Test Item Value Reference Range Interpretation Comments Monocytes (test code = Monocytes) 7.7 2.0-12.0 [facility] CenterVblkgynTOROZZTJIP7701-87-26 14:55:00 Test Item Value Reference Range Interpretation Comments Eosinophils (test code = 4.3 See_Comment [A utomated message] The Eosinophils) system which ge nerated this result tra nsmitted reference range : <=4.0. The reference r yared was not used to int erpret this result as normal/abnormal . [facility] CenterJjhgswlVTINEUURAO9317-71-62 14:55:00 Test Item Value Reference Range Interpretation Comments Lymphocytes (test code = Lymphocytes) 22.0 20.0-40.0 [facility] CenterTzpxydeFZOPFHMMGO2804-59-32 14:55:00 Test Item Value Reference Range Interpretation Comments Segs (test code = Segs) 65.1 45.0-75.0 [facility] CenterAioweopHBURBICAJA4704-39-67 14:55:00 Test Item Value Reference Range Interpretation Comments INR (test code = INR) 1.06 1 0.85-1.17 [facility] CenterOkjnbpkJDLMSLPRGJ1549-75-90 14:55:00 Test Item Value Reference Range Interpretation Comments PT (test code = PT) 13.8 s 12.0-14.7 [facility] CenterNnsgwmjOMWAMVQWUT3682-19-04 14:55:00 Test Item Value Reference Range Interpretation Comments PTT (test code = PTT) 35.0 s 22.9-35.8 [facility] CenterEiiiwwvNODEFJZNGZ6515-98-16 14:55:00 Test Item Value Reference Range Interpretation Comments RDW (test code = RDW) 18.1 11.5-14.5 [facility] CenterVooflgvYOOKORJAGZ8956-22-40 14:55:00 Test Item Value Reference Range Interpretation Comments MPV (test code = MPV) 8.0 7.4-10.4 [facility] CenterOcvrdkpTGUUONPAKR5482-81-13 14:55:00 Test Item Value Reference Range Interpretation Comments Platelet (test code = Platelet) 228 133-450 [facility] CenterGxnobdjLLNMTFTYCH4906-64-18 14:55:00 Test Item Value Reference Range Interpretation Comments MCHC (test code = MCHC) 33.3 32.0-36.0 [facility] CenterUfdqwysJSKQJPMSQQ7699-09-17 14:55:00 Test Item Value Reference Range Interpretation Comments RBC (test code = RBC) 4.54 4.70-6.10 [facility] CenterNuuejqcEUCFTRHXID9557-52-44 14:55:00 Test Item Value Reference Range Interpretation Comments WBC (test code = WBC) 6.1 3.7-10.4 [facility] CenterDjqetrlEEQXSLQEEH2380-33-81 14:55:00 Test Item Value Reference Range Interpretation Comments MCV (test code = MCV) 80.9 80.0-94.0 [facility] CenterZplxtppPYJPWFMSFN1614-44-34 14:55:00 Test Item Value Reference Range Interpretation Comments Hct (test code = Hct) 36.7 42.0-54.0 [facility] CenterExkzhelOPJPZGYWXN4329-25-97 14:55:00 Test Item Value Reference Range Interpretation Comments MCH (test code = MCH) 27.0 pg 27.0-31.0 [facility] CenterHidlhfnVPLVPMJWGC5294-78-74 14:55:00 Test Item Value Reference Range Interpretation Comments Hgb (test code = Hgb) 12.2 14.0-18.0 [facility]HurkqbjDMXYMBPBJJ7522-78-80 14:55:00 Test Item Value Reference Range Interpretation Comments Varicella IgG (test code = Varicella no gt IgG) [facility] HospitalRykjcbbDQCRSKVIMP0942-36-07 14:55:00 Test Item Value Reference Range Interpretation Comments Varicella IgM (test no gt See_Comment [Automa emerson message] The code = Varicella IgM) system which generated this result tra nsmitted reference range : <=0.90. The reference r yared was not used to int erpret this result as normal/abnormal . [facility] HospitalNcqhtmbAHNOXFNFIO6793-15-39 14:55:00 Test Item Value Reference Range Interpretation Comments Treponemal Ab (test code Non-Reactive = Treponemal Ab) *NA*(05/23/18 9:55 AM) [facility] HospitalCcdzjjoTGRVVGUUXO8799-17-87 14:55:00 Test Item Value Reference Range Interpretation Comments T-Spot.TB (test code Negative (05/23/18 9:55 = T-Spot.TB) AM) [facility] HospitalPmvxffgQHJPYKMJFB1112-12-46 14:55:00 Test Item Value Reference Range Interpretation Comments Gamma % (test code = Gamma %) 18.2 11.1-18.7 [facility] HospitalEfxnymkEXKIWYWWDH2305-42-11 14:55:00 Test Item Value Reference Range Interpretation Comments Alpha 2 % (test code = Alpha 2 %) 7.8 7.0-11.[address]08-15 14:55:00 Test Item Value Reference Range Interpretation Comments Beta % (test code = Beta %) 9.5 7.8-13.7 [facility] HospitalYcpgoapPVCNJHRAEB4737-49-80 14:55:00 Test Item Value Reference Range Interpretation Comments Albumin % (test code = Albumin %) 60.9 55.8-66.1 [facility] HospitalGswwibcOZIRPYQBIR1538-81-24 14:55:00 Test Item Value Reference Range Interpretation Comments Alpha 1 % (test code = Alpha 1 %) 3.6 2.8-4.9 [facility] HospitalHsdcswyPAPAABMGZU1331-34-35 14:55:00 Test Item Value Reference Range Interpretation Comments Gamma Glob (test code = Gamma Glob) 1.47 0.71-1.57 [facility] HospitalIqgearbCLUTGGAZBC8326-81-68 14:55:00 Test Item Value Reference Range Interpretation Comments Tot Prot (SPE) (test code = Tot Prot 8.1 6.4-8.4 (SPE)) [facility] HospitalNhkalpfSHLEQCSAKE0474-21-53 14:55:00 Test Item Value Reference Range Interpretation Comments Beta Glob (test code = Beta Glob) 0.77 0.50-1.15 [facility] HospitalNkexerjTUPGHRZYDS5139-41-01 14:55:00 Test Item Value Reference Range Interpretation [...] and concur with the resident's interpretation. CPT 48572-[place] [facility] HospitalVwwrbvcKSWWEUQRUT4085-60-81 14:55:00 Test Item Value Reference Range Interpretation Comments Albumin (SPE) (test code = Albumin 4.93 3.57-5.55 (SPE)) [facility] HospitalPaxzqbrLXJLOFAYMH5116-29-82 14:55:00 Test Item Value Reference Range Interpretation Comments Alpha 1 Glob (test code = Alpha 1 Glob) 0.29 0.18-0.41 [facility] HospitalOtsjhgwKUHIUDVCVX5369-24-60 14:55:00 Test Item Value Reference Range Interpretation Comments Alpha 2 Glob (test code = Alpha 2 Glob) 0.63 0.45-1.00 [facility] HospitalYdgccaoZGFBKDOKIN2916-44-89 14:55:00 Test Item Value Reference Range Interpretation Comments [place]/Lambda Free Light Chains Ratio 2.18 0.26-1.65 (test code = [place]/Lambda Free Light Chains Ratio) [facility] HospitalOursxtzPRXDOLOCZN3257-22-52 14:55:00 Test Item Value Reference Range Interpretation Comments Lambda Free Light Chains (test code = 89.85 5.70-26.30 Lambda Free Light Chains) [facility] HospitalNokkdmgAQCUOLMWSD6867-22-34 14:55:00 Test Item Value Reference Range Interpretation Comments [place] Free [place] Chains (test code = 196.11 3.30-19.40 [place] [employer] [place]) [facility] HospitalCtlljufXKZWCTGSDV3170-78-99 14:55:00 Test Item Value Reference Range Interpretation Comments HSV 1 IgG (test code = HSV 1 IgG) no [facility]2018-08-15 14:55:00 Test Item Value Reference Range Interpretation Comments HSV 2 IgG (test code = HSV 2 IgG) no [facility]2018-08-15 14:55:00 Test Item Value Reference Range Interpretation Comments CMV IgM (test code = CMV IgM) 0.2 [facility] HospitalNhyojazXHQPRRMXMT3333-99-02 14:55:00 Test Item Value Reference Range Interpretation Comments CMV IgG (test code = Reactive *ABN*(05/23/18 CMV IgG) 9:55 AM) [facility] HospitalDwvprfhOZKQMEDZPH3542-92-39 14:55:00 Test Item Value Reference Range Interpretation Comments EBV VCA IgG (test code = EBV VCA IgG) no gt [facility] HospitalVxpkiaoBQUVTUIVKF9019-51-41 14:55:00 Test Item Value Reference Range Interpretation Comments Hep Bs Ab (test code = Hep Bs Ab) 4.5 [facility] HospitalPqlapcpKUNPKCKCTG8510-21-47 14:55:00 Test Item Value Reference Range Interpretation Comments Hep C Ab (test code = Negative *NA*(05/23/18 Hep C Ab) 9:55 AM) [facility] HospitalPlqlodeFABLYMORVD9410-85-13 14:55:00 Test Item Value Reference Range Interpretation Comments EBV VCA IgM (test code = EBV VCA IgM) no [facility]2018-08-15 14:55:00 Test Item Value Reference Range Interpretation Comments Hep Bs Ag (test code Negative *NA*(05/23/18 = Hep Bs Ag) 9:55 AM) [facility] HospitalSzekagoDJABVEFRUY8356-62-74 14:55:00 Test Item Value Reference Range Interpretation Comments Hep B Core Ab (test Negative *NA*(05/23/18 code = Hep B Core Ab) 9:55 AM) [facility] HospitalBfnkggsIRACHHWNBH4725-68-44 14:55:00 Test Item Value Reference Range Interpretation Comments HIV Ag/Ab 4th Gen Negative *NA*(05/23/18 (test code = HIV 9:55 AM) Ag/Ab 4th Gen) [facility] HospitalPvbjmsaCKNQSBGKYB5681-76-81 14:55:00 Test Item Value Reference Range Interpretation Comments MIKE Ser Interp The serum immunofixation (test code = MIKE electrophoresis Ser Interp) demonstrates polyclonal distribution of immunoglobulins. No monoclonal immunoglobulins are detected. The electronic medical record has been reviewed for relevant history. I have personally reviewed the test results and concur with the resident's interpretation. CPT 73850-XS [facility] HospitalOkqnuncRMLFZCHSIF6516-29-74 14:55:00 Test Item Value Reference Range Interpretation Comments MIKE Ser Pattern Diffusely staining (test code = MIKE immunoreactivity is present Ser Pattern) in the IgG, IgA, IgM, kappa, and lambda lanes in a normal polyclonal distribution. No monoclonal immunoglobulins are detected. [facility]jumwUSHSYA[facility]679[facility] 14:55:00 Test Item Value Reference Range Interpretation Comments VLDL (test code = VLDL) 30 1 [facility] DallasSfuvtmuMDNFGB7357-42-36 14:55:00 Test Item Value Reference Range Interpretation Comments LDL (Calculated) (test code = LDL 74 (Calculated)) [facility] DallasOdoymzmOENRSR7619-60-41 14:55:00 Test Item Value Reference Range Interpretation Comments Chol (test code = Chol) 176 [facility] DallasJrpsvoaVTFIMA5243-57-55 14:55:00 Test Item Value Reference Range Interpretation Comments HDL (test code = HDL) 72 [facility] DallasVlnmincVPXBGQ3090-54-75 14:55:00 Test Item Value Reference Range Interpretation Comments Trig (test code = Trig) 152 [facility] DallasWunizgzFVCVFC9833-79-67 14:55:00 Test Item Value Reference Range Interpretation Comments CHD Risk (test code = CHD Risk) 2.44 1 4.00-7.30 [facility]PAR[facility]OLOGY - PLKCZDEV1589-55-76 14:55:00 Test Item Value Reference Range Interpretation Comments Strongyloides Antibodies (test code Negative = Strongyloides Antibodies) [facility] HospitalPARATHYROID [id number] 14:55:00 Test Item Value Reference Range Interpretation Comments PTH Intact (test code = PTH Intact) 286.0 18.4-80.1 [facility] [id number] 14:55:00 Test Item Value Reference Range Interpretation Comments PSA (test code = PSA) 0.46 See_Comment [Auto mated message] The system which ge nerated this result transmit emerson reference range : <=4.00. The reference r yared was not used to interpr et this result as erinn l/abnormal. [facility]2018-08-15 14:55:00 Test Item Value Reference Range Interpretation Comments Hgb A1C (test code = Hgb A1C) 4.9 [facility]2018-08-15 14:55:00 Test Item Value Reference Range Interpretation Comments Nicotine Lvl (test code = None Detected Nicotine Lvl) [facility]2018-08-15 14:55:00 Test Item Value Reference Range Interpretation Comments Cotinine Lvl (test code = None Detected Cotinine Lvl) [facility] [id number] 14:55:00 Test Item Value Reference Range Interpretation Comments % Satur Fe (test code = % Satur Fe) 35 12-57 [facility]2018-08-15 14:55:00 Test Item Value Reference Range Interpretation Comments UIBC (test code = UIBC) 179 110-370 [facility]2018-08-15 14:55:00 Test Item Value Reference Range Interpretation Comments TIBC (test code = TIBC) 276 228-428 [facility]2018-08-15 14:55:00 Test Item Value Reference Range Interpretation Comments Iron (test code = Iron) 97 45-160 [facility]2018-08-15 14:55:00 Test Item Value Reference Range Interpretation Comments Ferritin Lvl (test code = Ferritin Lvl) 292 22-275 [facility] FZKQVIU0538-21-34 14:55:00 Test Item Value Reference Range Interpretation Comments OP ABORh Int (test code = OP ABORh Int) O POS [facility]2018-08-15 14:55:00 Test Item Value Reference Range Interpretation Comments Phosphorus (test code = Phosphorus) 8.0 2.5-4.5 [facility]2018-08-15 14:55:00 Test Item Value Reference Range Interpretation Comments Magnesium Lvl (test code = Magnesium 2.5 1.8-2.4 Lvl) [facility]2018-08-15 14:55:00 Test Item Value Reference Range Interpretation Comments Vitamin D, 25-OH, Total (test code = 26.3 30.0-100.0 Vitamin D, 25-OH, Total) [facility]2018-08-15 14:55:00 Test Item Value Reference Range Interpretation Comments Uric Acid (test code = Uric Acid) 3.5 3.8-8.0 [facility]2018-08-15 14:55:00 Test Item Value Reference Range Interpretation Comments eGFR (test code = eGFR) 7 [facility]2018-08-15 14:55:00 Test Item Value Reference Range Interpretation Comments Alk Phos (test code = Alk Phos) 80 39-136 [facility]2018-08-15 14:55:00 Test Item Value Reference Range Interpretation Comments Bili Total (test code = Bili Total) 0.4 0.2-1.3 [facility]2018-08-15 14:55:00 Test Item Value Reference Range Interpretation Comments Albumin Lvl (test code = Albumin Lvl) 4.3 3.5-5.0 [facility]2018-08-15 14:55:00 Test Item Value Reference Range Interpretation Comments ALT (test code = ALT) 22 See_Comment [Auto mated message] The system which ge nerated this result transmit emerson reference range : <=65. The reference range was not used to interpr et this result as erinn l/abnormal. [facility]2018-08-15 14:55:00 Test Item Value Reference Range Interpretation Comments Calcium Lvl (test code = Calcium Lvl) 8.8 8.5-10.5 [facility]2018-08-15 14:55:00 Test Item Value Reference Range Interpretation Comments Total Protein (test code = Total 8.1 6.4-8.4 Protein) [facility]2018-08-15 14:55:00 Test Item Value Reference Range Interpretation Comments AST (test code = AST) 12 See_Comment [Auto mated message] The system which ge nerated this result transmit emerson reference range : <=37. The reference range was not used to interpr et this result as erinn l/abnormal. [facility]2018-08-15 14:55:00 Test Item Value Reference Range Interpretation Comments CO2 (test code = CO2) 26 24-32 [facility]2018-08-15 14:55:00 Test Item Value Reference Range Interpretation Comments Chloride Lvl (test code = Chloride Lvl) 97 95-109 [facility]2018-08-15 14:55:00 Test Item Value Reference Range Interpretation Comments Potassium Lvl (test code = Potassium 3.8 3.5-5.1 Lvl) [facility]2018-08-15 14:55:00 Test Item Value Reference Range Interpretation Comments Creatinine Lvl (test code = Creatinine 8.22 0.50-1.40 Lvl) [facility]2018-08-15 14:55:00 Test Item Value Reference Range Interpretation Comments Sodium Lvl (test code = Sodium Lvl) 136 135-145 [facility]2018-08-15 14:55:00 Test Item Value Reference Range Interpretation Comments BUN (test code = BUN) 59 7-22 [facility]2018-08-15 14:55:00 Test Item Value Reference Range Interpretation Comments Glucose Lvl (test code = Glucose Lvl) 98 70-99 [facility]2018-08-15 14:55:00 Test Item Value Reference Range Interpretation Comments Globulin (test code = Globulin) 3.8 2.7-4.2 [facility]2018-08-15 14:55:00 Test Item Value Reference Range Interpretation Comments A/G Ratio (test code = A/G Ratio) 1.1 1 0.7-1.6 [facility]2018-08-15 14:55:00 Test Item Value Reference Range Interpretation Comments AGAP (test code = AGAP) 16.8 10.0-20.0 [facility]2018-08-15 14:55:00 Test Item Value Reference Range Interpretation Comments B/C Ratio (test code = B/C Ratio) 7 1 6-25 [facility] [id number] 14:55:00 Test Item Value Reference Range Interpretation Comments Phencyclidine Scr (test Negative (05/23/18 code = Phencyclidine Scr) 9:55 AM) [facility] [id number] 14:55:00 Test Item Value Reference Range Interpretation Comments 6-Acetylmor Scr (test Negative (05/23/18 9:55 code = 6-Acetylmor AM) Scr) [facility] [id number] 14:55:00 Test Item Value Reference Range Interpretation Comments Opiate Scr (test code Positive *ABN*(05/23/18 = Opiate Scr) 9:55 AM) [facility] [id number] 14:55:00 Test Item Value Reference Range Interpretation Comments Methadone Scr (test Negative (05/23/18 9:55 code = Methadone Scr) AM) [facility] [id number] 14:55:00 Test Item Value Reference Range Interpretation Comments Rosa M Scr (test code = Negative (05/23/18 9:55 Rosa M Scr) AM) [facility] [id number] 14:55:00 Test Item Value Reference Range Interpretation Comments Cutoff Values (test See Note (05/23/18 9:55 code = Cutoff Values) AM) [facility] [id number] 14:55:00 Test Item Value Reference Range Interpretation Comments Cocaine Scr (test code Negative (05/23/18 9:55 = Cocaine Scr) AM) [facility] [id number] 14:55:00 Test Item Value Reference Range Interpretation Comments Amph Scr (test code = Negative (05/23/18 9:55 Amph Scr) AM) [facility] [id number] 14:55:00 Test Item Value Reference Range Interpretation Comments Cannab Scr (test code Negative (05/23/18 9:55 = Cannab Scr) AM) [facility] [id number] 14:55:00 Test Item Value Reference Range Interpretation Comments Benzodiaz Scr (test Positive *ABN*(05/23/18 code = Benzodiaz Scr) 9:55 AM) [facility] [id number] 14:55:00 Test Item Value Reference Range Interpretation Comments Opiate Qnt (test code = See Note 2(05/23/18 Opiate Qnt) 9:55 AM) [facility]2018-08-15 14:55:00 Test Item Value Reference Range Interpretation Comments Benzodiaz Qnt (test code See Note 1(05/23/18 = Benzodiaz Qnt) 9:55 AM) [facility]NuqtrgaHWBBPHCTAN9980-88-67 14:55:00 Test Item Value Reference Range Interpretation Comments Eosinophils # (test code 0.3 See_Comment [A utomated message] The = Eosinophils #) system whic h generated this result tra nsmitted reference range : <=0.5. The reference r yared was not used to int erpret this result as normal/abnormal . [facility] CenterTeweuuhXBDSJKZPNB8868-01-23 14:55:00 Test Item Value Reference Range Interpretation Comments Basophils # (test code 0.1 See_Comment [Aut omated message] The = Basophils #) system which generated this result tra nsmitted reference range : <=0.2. The reference r yared was not used to int erpret this result as normal/abnormal . [facility]YpgtksnTRSSNHYWFJ7865-44-94 14:55:00 Test Item Value Reference Range Interpretation Comments Neutrophils # (test code = Neutrophils 3.9 1.5-8.1 #) [facility] CenterVeplqxwYLEHFWRTCC9949-63-77 14:55:00 Test Item Value Reference Range Interpretation Comments Lymphocytes # (test code = Lymphocytes 1.3 1.0-5.5 #) [facility] CenterZcrgyeyWLCGOCLCTC3530-83-73 14:55:00 Test Item Value Reference Range Interpretation Comments Monocytes # (test code 0.5 See_Comment [Aut omated message] The = Monocytes #) system which generated this result tra nsmitted reference range : <=0.8. The reference r yared was not used to int erpret this result as normal/abnormal . [facility] CenterWaphuyoSHUXCCVEIS7846-46-81 14:55:00 Test Item Value Reference Range Interpretation Comments Basophils (test code = 0.9 See_Comment [Aut omated message] The Basophils) system which ge nerated this result tra nsmitted reference range : <=1.0. The reference r yared was not used to int erpret this result as normal/abnormal . [facility] CenterLuunppeHSWPMTUMBU0157-08-87 14:55:00 Test Item Value Reference Range Interpretation Comments Monocytes (test code = Monocytes) 7.7 2.0-12.0 [facility] CenterVdnsuigEIDUUVDJAV4927-14-57 14:55:00 Test Item Value Reference Range Interpretation Comments Eosinophils (test code = 4.3 See_Comment [A utomated message] The Eosinophils) system which ge nerated this result tra nsmitted reference range : <=4.0. The reference r yared was not used to int erpret this result as normal/abnormal . [facility] CenterYdwaawnBYPQCVALLU7250-81-30 14:55:00 Test Item Value Reference Range Interpretation Comments Lymphocytes (test code = Lymphocytes) 22.0 20.0-40.0 [facility] CenterBmjldpvMHRWGWRUUK2160-40-18 14:55:00 Test Item Value Reference Range Interpretation Comments Segs (test code = Segs) 65.1 45.0-75.0 [facility] CenterHmodibbAUITYNIYBA0484-06-56 14:55:00 Test Item Value Reference Range Interpretation Comments INR (test code = INR) 1.06 1 0.85-1.17 [facility] CenterGgklecpDURHCZCYUU1848-35-87 14:55:00 Test Item Value Reference Range Interpretation Comments PT (test code = PT) 13.8 s 12.0-14.7 [facility] CenterTxyvtvhREVCAJBGVO8104-36-99 14:55:00 Test Item Value Reference Range Interpretation Comments PTT (test code = PTT) 35.0 s 22.9-35.8 [facility] CenterLzdzhlhZNEXTBPNEO1380-22-63 14:55:00 Test Item Value Reference Range Interpretation Comments RDW (test code = RDW) 18.1 11.5-14.5 [facility] CenterJsgcmedLWZVFTMLAF8401-41-95 14:55:00 Test Item Value Reference Range Interpretation Comments MPV (test code = MPV) 8.0 7.4-10.4 [facility] CenterDswqbuvIYOLFEQAYK5848-00-51 14:55:00 Test Item Value Reference Range Interpretation Comments Platelet (test code = Platelet) 228 133-450 [facility] CenterKzxpshgHRRKNUUGWN3347-58-23 14:55:00 Test Item Value Reference Range Interpretation Comments MCHC (test code = MCHC) 33.3 32.0-36.0 [facility] CenterQkephfpIMRORCACCY1954-51-17 14:55:00 Test Item Value Reference Range Interpretation Comments RBC (test code = RBC) 4.54 4.70-6.10 [facility] CenterCuqcnsyONMUVWPTXZ3106-08-18 14:55:00 Test Item Value Reference Range Interpretation Comments WBC (test code = WBC) 6.1 3.7-10.4 [facility] CenterVdlibaqCXJCVGNMPY9739-34-15 14:55:00 Test Item Value Reference Range Interpretation Comments MCV (test code = MCV) 80.9 80.0-94.0 [facility] CenterCwaxrmwSDMMTCWWCL0851-19-94 14:55:00 Test Item Value Reference Range Interpretation Comments Hct (test code = Hct) 36.7 42.0-54.0 [facility] CenterCyjicqkLHUKTGSATW5038-04-54 14:55:00 Test Item Value Reference Range Interpretation Comments MCH (test code = MCH) 27.0 pg 27.0-31.0 [facility] CenterWpdbhkcHRNPSDNYNZ6115-89-82 14:55:00 Test Item Value Reference Range Interpretation Comments Hgb (test code = Hgb) 12.2 14.0-18.0 [facility]TqbbqysZCBXGFDJHI3836-92-39 14:55:00 Test Item Value Reference Range Interpretation Comments Varicella IgG (test code = Varicella no gt IgG) [facility] HospitalJxipduzKRJFRTQSVP8596-60-65 14:55:00 Test Item Value Reference Range Interpretation Comments Varicella IgM (test no gt See_Comment [Automa emerson message] The code = Varicella IgM) system which generated this result tra nsmitted reference range : <=0.90. The reference r yared was not used to int erpret this result as normal/abnormal . [facility] HospitalJqboojfTLTLTCRZPG7783-47-02 14:55:00 Test Item Value Reference Range Interpretation Comments Treponemal Ab (test code Non-Reactive = Treponemal Ab) *NA*(05/23/18 9:55 AM) [facility] HospitalNmifdeaCXWFAZAHGG5617-35-16 14:55:00 Test Item Value Reference Range Interpretation Comments T-Spot.TB (test code Negative (05/23/18 9:55 = T-Spot.TB) AM) [facility] HospitalHtealavEVQVJOPOTV9105-60-87 14:55:00 Test Item Value Reference Range Interpretation Comments Gamma % (test code = Gamma %) 18.2 11.1-18.7 [facility] HospitalRnapiopZCHYCNGGVA0833-08-63 14:55:00 Test Item Value Reference Range Interpretation Comments Alpha 2 % (test code = Alpha 2 %) 7.8 7.0-11.9 [facility] HospitalRbvyfjaTXLHEWPHAX5168-19-27 14:55:00 Test Item Value Reference Range Interpretation Comments Beta % (test code = Beta %) 9.5 7.8-13.7 [facility] HospitalTetpkccLZOBDHURUF7113-81-93 14:55:00 Test Item Value Reference Range Interpretation Comments Albumin % (test code = Albumin %) 60.9 55.8-66.1 [facility]SjyebvpDDKQDOUWPE9251-89-02 14:55:00 Test Item Value Reference Range Interpretation Comments Alpha 1 % (test code = Alpha 1 %) 3.6 2.8-4.9 [facility] HospitalXckgwrlUKPJQSIHJU6187-74-97 14:55:00 Test Item Value Reference Range Interpretation Comments Gamma Glob (test code = Gamma Glob) 1.47 0.71-1.57 [facility] HospitalBwnwckzYRPKVRPGIZ0332-37-67 14:55:00 Test Item Value Reference Range Interpretation Comments Tot Prot (SPE) (test code = Tot Prot 8.1 6.4-8.4 (SPE)) [facility] HospitalNiecqorBXYCVDFZTM2830-04-54 14:55:00 Test Item Value Reference Range Interpretation Comments Beta Glob (test code = Beta Glob) 0.77 0.50-1.15 [facility] HospitalXuymwbrNWSXKJAHZE0232-12-94 14:55:00 Test Item Value Reference Range Interpretation [...] and concur with the resident's interpretation. CPT 53491-ON [facility] HospitalXmrfucmPFBFALEHHD7356-77-05 14:55:00 Test Item Value Reference Range Interpretation Comments Albumin (SPE) (test code = Albumin 4.93 3.57-5.55 (SPE)) [facility] HospitalRnqthjgJHUXZUKMTV2065-95-71 14:55:00 Test Item Value Reference Range Interpretation Comments Alpha 1 Glob (test code = Alpha 1 Glob) 0.29 0.18-0.41 [facility] HospitalOrguyfxUWEMPXRYBT5625-20-04 14:55:00 Test Item Value Reference Range Interpretation Comments Alpha 2 Glob (test code = Alpha 2 Glob) 0.63 0.45-1.00 [facility] HospitalMvtaejvZCEUIXTFBH2325-06-51 14:55:00 Test Item Value Reference Range Interpretation Comments [place]/Lambda Free Light Chains Ratio 2.18 0.26-1.65 (test code = [place]/Lambda Free Light Chains Ratio) [facility] HospitalBcnrerwGKAQLVJVSL2534-18-65 14:55:00 Test Item Value Reference Range Interpretation Comments Lambda Free Light Chains (test code = 89.85 5.70-26.30 Lambda Free Light Chains) [facility] HospitalOounujkMPMSTJCCTD2212-69-98 14:55:00 Test Item Value Reference Range Interpretation Comments [place] Free Light Chains (test code = 196.11 3.30-19.40 [place] Free [place] Chains) [facility] HospitalKufpvxdBDFGQMVVSA1442-81-70 14:55:00 Test Item Value Reference Range Interpretation Comments HSV 1 IgG (test code = HSV 1 IgG) no gt [facility] HospitalWpgqqpkFXRUMOVPLR2711-54-30 14:55:00 Test Item Value Reference Range Interpretation Comments HSV 2 IgG (test code = HSV 2 IgG) no gt [facility] HospitalShqkpijNQPZHCXLOH9402-48-77 14:55:00 Test Item Value Reference Range Interpretation Comments CMV IgM (test code = CMV IgM) 0.2 [facility] HospitalGdcglscIRIKZZLDDL7537-01-87 14:55:00 Test Item Value Reference Range Interpretation Comments CMV IgG (test code = Reactive *ABN*(05/23/18 CMV IgG) 9:55 AM) [facility] HospitalVyilbqqVUNLKTNLQO1824-97-92 14:55:00 Test Item Value Reference Range Interpretation Comments EBV VCA IgG (test code = EBV VCA IgG) no gt [facility] HospitalNwehfigQXAMPKQORA1760-43-35 14:55:00 Test Item Value Reference Range Interpretation Comments Hep Bs Ab (test code = Hep Bs Ab) 4.5 [facility] HospitalSmxgdjvGHIVCJNOXA5724-38-81 14:55:00 Test Item Value Reference Range Interpretation Comments Hep C Ab (test code = Negative *NA*(05/23/18 Hep C Ab) 9:55 AM) [facility] HospitalHxvpnwvBBHTUMWTCY1451-13-89 14:55:00 Test Item Value Reference Range Interpretation Comments EBV VCA IgM (test code = EBV VCA IgM) no gt [facility] HospitalWcslvqjBOEDAJRXVF5237-51-91 14:55:00 Test Item Value Reference Range Interpretation Comments Hep Bs Ag (test code Negative *NA*(05/23/18 = Hep Bs Ag) 9:55 AM) [facility] HospitalZqojgrhZUZEDQVAUA9826-37-88 14:55:00 Test Item Value Reference Range Interpretation Comments Hep B Core Ab (test Negative *NA*(05/23/18 code = Hep B Core Ab) 9:55 AM) [facility] HospitalCccdbqmLVKPUGTNRD4926-94-60 14:55:00 Test Item Value Reference Range Interpretation Comments HIV Ag/Ab 4th Gen Negative *NA*(05/23/18 (test code = HIV 9:55 AM) Ag/Ab 4th Gen) [facility] HospitalAkywnvuPBVHXBISCK9972-33-27 14:55:00 Test Item Value Reference Range Interpretation Comments MIKE Ser Interp The serum immunofixation (test code = MIKE electrophoresis Ser Interp) demonstrates polyclonal distribution of immunoglobulins. No monoclonal immunoglobulins are detected. The electronic medical record has been reviewed for relevant history. I have personally reviewed the test results and concur with the resident's interpretation. CPT 86766-YY [facility] HospitalAodnmuzKRRWKXUOZT2389-11-14 14:55:00 Test Item Value Reference Range Interpretation Comments MIKE Ser Pattern Diffusely staining (test code = MIKE immunoreactivity is present Ser Pattern) in the IgG, IgA, IgM, kappa, and lambda lanes in a normal polyclonal distribution. No monoclonal immunoglobulins are detected. [facility]jjpozzSYAIQR6407[facility] 14:55:00 Test Item Value Reference Range Interpretation Comments VLDL (test code = VLDL) 30 1 [facility] HospitalRymrwcjBMOVLE6664-73-40 14:55:00 Test Item Value Reference Range Interpretation Comments LDL (Calculated) (test code = LDL 74 (Calculated)) [facility] HospitalGixzsqqDQUNOJ1878-25-99 14:55:00 Test Item Value Reference Range Interpretation Comments Chol (test code = Chol) 176 [facility] HospitalJswpqdmQAGPCH3865-57-73 14:55:00 Test Item Value Reference Range Interpretation Comments HDL (test code = HDL) 72 [facility] DallasUsjxnecFSPXHV3184-79-69 14:55:00 Test Item Value Reference Range Interpretation Comments Trig (test code = Trig) 152 [facility] HospitalYzdwwkkIVNCER6410-94-53 14:55:00 Test Item Value Reference Range Interpretation Comments CHD Risk (test code = CHD Risk) 2.44 1 4.00-7.30 [facility] HospitalPARASITOLOGY - IPEWLOVQ2827-05-76 14:55:00 Test Item Value Reference Range Interpretation Comments Strongyloides Antibodies (test code Negative = Strongyloides Antibodies) [facility] HospitalPARATHYROID IRLOSEM4951-40-02 14:55:00 Test Item Value Reference Range Interpretation Comments PTH Intact (test code = PTH Intact) 286.0 18.4-80.1 [facility] OGMBZRHCE3992-30-04 14:55:00 Test Item Value Reference Range Interpretation Comments PSA (test code = PSA) 0.46 See_Comment [Auto mated message] The system which ge nerated this result transmit emerson reference range : <=4.00. The reference r yared was not used to interpr et this result as erinn l/abnormal. [facility] NNOQZPEWW3945-98-03 14:55:00 Test Item Value Reference Range Interpretation Comments Hgb A1C (test code = Hgb A1C) 4.9 [facility] LVEGIAFGO6639-83-13 14:55:00 Test Item Value Reference Range Interpretation Comments Nicotine Lvl (test code = None Detected Nicotine Lvl) [facility]2018-08-15 14:55:00 Test Item Value Reference Range Interpretation Comments Cotinine Lvl (test code = None Detected Cotinine Lvl) [facility] VZWXR0232-30-75 14:55:00 Test Item Value Reference Range Interpretation Comments % Satur Fe (test code = % Satur Fe) 35 12-57 [facility] LNASS0155-30-31 14:55:00 Test Item Value Reference Range Interpretation Comments UIBC (test code = UIBC) 179 110-370 [facility]2018-08-15 14:55:00 Test Item Value Reference Range Interpretation Comments TIBC (test code = TIBC) 276 228-428 [facility] BEIRM7466-27-74 14:55:00 Test Item Value Reference Range Interpretation Comments Iron (test code = Iron) 97 45-160 [facility] UZHZZ2369-47-53 14:55:00 Test Item Value Reference Range Interpretation Comments Ferritin Lvl (test code = Ferritin Lvl) 292 22-275 [facility] XNVWTQB0700-82-66 14:55:00 Test Item Value Reference Range Interpretation Comments OP ABORh Int (test code = OP ABORh Int) O POS [facility]2018-08-15 14:55:00 Test Item Value Reference Range Interpretation Comments Phosphorus (test code = Phosphorus) 8.0 2.5-4.5 [facility]2018-08-15 14:55:00 Test Item Value Reference Range Interpretation Comments Magnesium Lvl (test code = Magnesium 2.5 1.8-2.4 Lvl) [facility]2018-08-15 14:55:00 Test Item Value Reference Range Interpretation Comments Vitamin D, 25-OH, Total (test code = 26.3 30.0-100.0 Vitamin D, 25-OH, Total) [facility]2018-08-15 14:55:00 Test Item Value Reference Range Interpretation Comments Uric Acid (test code = Uric Acid) 3.5 3.8-8.0 [facility]2018-08-15 14:55:00 Test Item Value Reference Range Interpretation Comments eGFR (test code = eGFR) 7 [facility]2018-08-15 14:55:00 Test Item Value Reference Range Interpretation Comments Alk Phos (test code = Alk Phos) 80 39-136 [facility]2018-08-15 14:55:00 Test Item Value Reference Range Interpretation Comments Bili Total (test code = Bili Total) 0.4 0.2-1.3 [facility]2018-08-15 14:55:00 Test Item Value Reference Range Interpretation Comments Albumin Lvl (test code = Albumin Lvl) 4.3 3.5-5.0 [facility]2018-08-15 14:55:00 Test Item Value Reference Range Interpretation Comments ALT (test code = ALT) 22 See_Comment [Auto mated message] The system which ge nerated this result transmit emerson reference range : <=65. The reference range was not used to interpr et this result as erinn l/abnormal. [facility]2018-08-15 14:55:00 Test Item Value Reference Range Interpretation Comments Calcium Lvl (test code = Calcium Lvl) 8.8 8.5-10.5 [facility]2018-08-15 14:55:00 Test Item Value Reference Range Interpretation Comments Total Protein (test code = Total 8.1 6.4-8.4 Protein) [facility]2018-08-15 14:55:00 Test Item Value Reference Range Interpretation Comments AST (test code = AST) 12 See_Comment [Auto mated message] The system which ge nerated this result transmit emerson reference range : <=37. The reference range was not used to interpr et this result as erinn l/abnormal. [facility]2018-08-15 14:55:00 Test Item Value Reference Range Interpretation Comments CO2 (test code = CO2) 26 24-32 [facility]2018-08-15 14:55:00 Test Item Value Reference Range Interpretation Comments Chloride Lvl (test code = Chloride Lvl) 97 95-109 [facility]2018-08-15 14:55:00 Test Item Value Reference Range Interpretation Comments Potassium Lvl (test code = Potassium 3.8 3.5-5.1 Lvl) [facility]2018-08-15 14:55:00 Test Item Value Reference Range Interpretation Comments Creatinine Lvl (test code = Creatinine 8.22 0.50-1.40 Lvl) [facility]2018-08-15 14:55:00 Test Item Value Reference Range Interpretation Comments Sodium Lvl (test code = Sodium Lvl) 136 135-145 [facility]2018-08-15 14:55:00 Test Item Value Reference Range Interpretation Comments BUN (test code = BUN) 59 7-22 [facility]2018-08-15 14:55:00 Test Item Value Reference Range Interpretation Comments Glucose Lvl (test code = Glucose Lvl) 98 70-99 [facility]2018-08-15 14:55:00 Test Item Value Reference Range Interpretation Comments Globulin (test code = Globulin) 3.8 2.7-4.2 [facility]2018-08-15 14:55:00 Test Item Value Reference Range Interpretation Comments A/G Ratio (test code = A/G Ratio) 1.1 1 0.7-1.6 [facility]2018-08-15 14:55:00 Test Item Value Reference Range Interpretation Comments AGAP (test code = AGAP) 16.8 10.0-20.0 [facility] [id number] 14:55:00 Test Item Value Reference Range Interpretation Comments B/C Ratio (test code = B/C Ratio) 7 1 6-25 [facility] TZAZTI0566[facility]18[facility]44 14:55:00 Test Item Value Reference Range Interpretation Comments Phencyclidine Scr (test Negative (05/23/18 code = Phencyclidine Scr) 9:55 AM) [facility] [id number] 14:55:00 Test Item Value Reference Range Interpretation Comments 6-Acetylmor Scr (test Negative (05/23/18 9:55 code = 6-Acetylmor AM) Scr) [facility] [id number] 14:55:00 Test Item Value Reference Range Interpretation Comments Opiate Scr (test code Positive *ABN*(05/23/18 = Opiate Scr) 9:55 AM) [facility] [id number] 14:55:00 Test Item Value Reference Range Interpretation Comments Methadone Scr (test Negative (05/23/18 9:55 code = Methadone Scr) AM) [facility] [id number] 14:55:00 Test Item Value Reference Range Interpretation Comments Rosa M Scr (test code = Negative (05/23/18 9:55 Rosa M Scr) AM) [facility] [id number] 14:55:00 Test Item Value Reference Range Interpretation Comments Cutoff Values (test See Note (05/23/18 9:55 code = Cutoff Values) AM) [facility] GIUMDP6544-18-58 14:55:00 Test Item Value Reference Range Interpretation Comments Cocaine Scr (test code Negative (05/23/18 9:55 = Cocaine Scr) AM) [facility] NMFCQM7311-68-34 14:55:00 Test Item Value Reference Range Interpretation Comments Amph Scr (test code = Negative (05/23/18 9:55 Amph Scr) AM) [facility] [id number] 14:55:00 Test Item Value Reference Range Interpretation Comments Cannab Scr (test code Negative (05/23/18 9:55 = Cannab Scr) AM) [facility] [id number] 14:55:00 Test Item Value Reference Range Interpretation Comments Benzodiaz Scr (test Positive *ABN*(05/23/18 code = Benzodiaz Scr) 9:55 AM) [facility] [id number] 14:55:00 Test Item Value Reference Range Interpretation Comments Opiate Qnt (test code = See Note 2(05/23/18 Opiate Qnt) 9:55 AM) [facility] [id number] 14:55:00 Test Item Value Reference Range Interpretation Comments Benzodiaz Qnt (test code See Note 1(05/23/18 = Benzodiaz Qnt) 9:55 AM) [facility] CenterCjqmggwIQTVVGRITF7213-32-04 14:55:00 Test Item Value Reference Range Interpretation Comments Eosinophils # (test code 0.3 See_Comment [A utomated message] The = Eosinophils #) system whic h generated this result tra nsmitted reference range : <=0.5. The reference r yared was not used to int erpret this result as normal/abnormal . [facility] CenterDazadffLPRNIYMAPI8366-86-86 14:55:00 Test Item Value Reference Range Interpretation Comments Basophils # (test code 0.1 See_Comment [Aut omated message] The = Basophils #) system which generated this result tra nsmitted reference range : <=0.2. The reference r yared was not used to int erpret this result as normal/abnormal . [facility] CenterEpwpghrYXUREUSEOD1709-80-28 14:55:00 Test Item Value Reference Range Interpretation Comments Neutrophils # (test code = Neutrophils 3.9 1.5-8.1 #) [facility] CenterZrljlzoFBFBXCAUCU9714-41-56 14:55:00 Test Item Value Reference Range Interpretation Comments Lymphocytes # (test code = Lymphocytes 1.3 1.0-5.5 #) [facility] CenterQenmamnIMIYXZGNJM2962-95-36 14:55:00 Test Item Value Reference Range Interpretation Comments Monocytes # (test code 0.5 See_Comment [Aut omated message] The = Monocytes #) system which generated this result tra nsmitted reference range : <=0.8. The reference r yared was not used to int erpret this result as normal/abnormal . [facility] CenterXdkcvytLLKZAOWOJQ5149-50-08 14:55:00 Test Item Value Reference Range Interpretation Comments Basophils (test code = 0.9 See_Comment [Aut omated message] The Basophils) system which ge nerated this result tra nsmitted reference range : <=1.0. The reference r yared was not used to int erpret this result as normal/abnormal . [facility] CenterBahxftsAQQSWHHUCJ5093-35-38 14:55:00 Test Item Value Reference Range Interpretation Comments Monocytes (test code = Monocytes) 7.7 2.0-12.0 [facility] CenterCmpqtveWUOOGHYDQM2075-90-57 14:55:00 Test Item Value Reference Range Interpretation Comments Eosinophils (test code = 4.3 See_Comment [A utomated message] The Eosinophils) system which ge nerated this result tra nsmitted reference range : <=4.0. The reference r yared was not used to int erpret this result as normal/abnormal . [facility] CenterNjtrthmFMTVHAVHLH4967-62-24 14:55:00 Test Item Value Reference Range Interpretation Comments Lymphocytes (test code = Lymphocytes) 22.0 20.0-40.0 [facility] CenterSdmmtytPUJEZMCWGO8828-22-95 14:55:00 Test Item Value Reference Range Interpretation Comments Segs (test code = Segs) 65.1 45.0-75.0 [facility] CenterTksyontRLBWDNYWPW2644-90-26 14:55:00 Test Item Value Reference Range Interpretation Comments INR (test code = INR) 1.06 1 0.85-1.17 [facility] CenterEqjmspyYHMTWBRSFN1520-36-16 14:55:00 Test Item Value Reference Range Interpretation Comments PT (test code = PT) 13.8 s 12.0-14.7 [facility] CenterUpijbsdEBIAYFZWLE1319-90-77 14:55:00 Test Item Value Reference Range Interpretation Comments PTT (test code = PTT) 35.0 s 22.9-35.8 [facility] CenterQclleiyADNRNYOKIF9869-01-16 14:55:00 Test Item Value Reference Range Interpretation Comments RDW (test code = RDW) 18.1 11.5-14.5 [facility] CenterXacnohcWJFQDKTKPO2573-94-64 14:55:00 Test Item Value Reference Range Interpretation Comments MPV (test code = MPV) 8.0 7.4-10.4 [facility] CenterPdrzpfbDWAOBMNUAZ6109-31-24 14:55:00 Test Item Value Reference Range Interpretation Comments Platelet (test code = Platelet) 228 133-450 [facility] CenterBkryyqrMPPMCZEDJT8300-67-86 14:55:00 Test Item Value Reference Range Interpretation Comments MCHC (test code = MCHC) 33.3 32.0-36.0 [facility] CenterLuaeqfbWSXICCBWNT3748-02-55 14:55:00 Test Item Value Reference Range Interpretation Comments RBC (test code = RBC) 4.54 4.70-6.10 [facility] CenterYthaahcBHFJPVIITL3973-26-03 14:55:00 Test Item Value Reference Range Interpretation Comments WBC (test code = WBC) 6.1 3.7-10.4 [facility] CenterFkirouzZOURFMSWSX6780-79-30 14:55:00 Test Item Value Reference Range Interpretation Comments MCV (test code = MCV) 80.9 80.0-94.0 [facility] [facility]AXSSVIMMJX1627[facility]38-42 14:55:00 Test Item Value Reference Range Interpretation Comments Hct (test code = Hct) 36.7 42.0-54.0 [facility]GwbmqcyYCWEFPKDIH7031-34-87 14:55:00 Test Item Value Reference Range Interpretation Comments MCH (test code = MCH) 27.0 pg 27.0-31.0 [facility] CenterUyiikhiZVUYICOAYB6494-00-90 14:55:00 Test Item Value Reference Range Interpretation Comments Hgb (test code = Hgb) 12.2 14.0-18.0 [facility]DshdhjbYPJUMNLJXF2215-83-36 14:55:00 Test Item Value Reference Range Interpretation Comments Varicella IgG (test code = Varicella no gt IgG) [facility] HospitalRqszloiRORRNMABYE9464-15-29 14:55:00 Test Item Value Reference Range Interpretation Comments Varicella IgM (test no gt See_Comment [Automa emerson message] The code = Varicella IgM) system which generated this result tra nsmitted reference range : <=0.90. The reference r yared was not used to int erpret this result as normal/abnormal . [facility] HospitalWvtxazhTEWYKCMJDM1218-76-56 14:55:00 Test Item Value Reference Range Interpretation Comments Treponemal Ab (test code Non-Reactive = Treponemal Ab) *NA*(05/23/18 9:55 AM) [facility] HospitalJnufdufXUWIOSPQNA7143-91-81 14:55:00 Test Item Value Reference Range Interpretation Comments T-Spot.TB (test code Negative (05/23/18 9:55 = T-Spot.TB) AM) [facility] HospitalTqbfadaIPQGHBYTNZ6029-32-27 14:55:00 Test Item Value Reference Range Interpretation Comments Gamma % (test code = Gamma %) 18.2 11.1-18.7 [facility] HospitalUtmfimzCWHPSCXFNW5668-75-25 14:55:00 Test Item Value Reference Range Interpretation Comments Alpha 2 % (test code = Alpha 2 %) 7.8 7.0-11.9 [facility] HospitalJiqrtojADNHEEUFCP3761-67-79 14:55:00 Test Item Value Reference Range Interpretation Comments Beta % (test code = Beta %) 9.5 7.8-13.7 [facility] HospitalWlfnkhuZIRTKVPMVV6184-22-92 14:55:00 Test Item Value Reference Range Interpretation Comments Albumin % (test code = Albumin %) 60.9 55.8-66.1 [facility] HospitalZbecwwsFASQCPODEZ0631-49-78 14:55:00 Test Item Value Reference Range Interpretation Comments Alpha 1 % (test code = Alpha 1 %) 3.6 2.8-4.9 [facility] HospitalSbtmmsnGJBWWVGUZV5565-16-93 14:55:00 Test Item Value Reference Range Interpretation Comments Gamma Glob (test code = Gamma Glob) 1.47 0.71-1.57 [facility] HospitalUxhdkqjKHUXIKYXTF4540-34-22 14:55:00 Test Item Value Reference Range Interpretation Comments Tot Prot (SPE) (test code = Tot Prot 8.1 6.4-8.4 (SPE)) [facility] HospitalDibtlagDATXESWLIT2290-46-02 14:55:00 Test Item Value Reference Range Interpretation Comments Beta Glob (test code = Beta Glob) 0.77 0.50-1.15 [facility] HospitalNxqwykrDJGFFNOYWI6248-20-77 14:55:00 Test Item Value Reference Range Interpretation [...] and concur with the resident's interpretation. CPT 99714-UI [facility] HospitalOzeokjgLNHXROPFWV2628-19-70 14:55:00 Test Item Value Reference Range Interpretation Comments Albumin (SPE) (test code = Albumin 4.93 3.57-5.55 (SPE)) [facility] HospitalUgbwcaxYPACKJTUPS0247-49-86 14:55:00 Test Item Value Reference Range Interpretation Comments Alpha 1 Glob (test code = Alpha 1 Glob) 0.29 0.18-0.41 [facility] HospitalHicrhauZJXYURWRPV7563-97-67 14:55:00 Test Item Value Reference Range Interpretation Comments Alpha 2 Glob (test code = Alpha 2 Glob) 0.63 0.45-1.00 [facility] HospitalRedimwaAWDFVEFUOZ7571-54-10 14:55:00 Test Item Value Reference Range Interpretation Comments [place]/Lambda Free Light Chains Ratio 2.18 0.26-1.65 (test code = [place]/Lambda Free Light Chains Ratio) [facility] HospitalSjtsxkzBQAVIWNKYQ2524-87-63 14:55:00 Test Item Value Reference Range Interpretation Comments Lambda Free Light Chains (test code = 89.85 5.70-26.30 Lambda Free Light Chains) [facility] HospitalJernrxvVZKERXVCOY9836-24-29 14:55:00 Test Item Value Reference Range Interpretation Comments [place] Free [place] Chains (test code = 196.11 3.30-19.40 [place] Free [place] Chains) [facility] HospitalHmvdvxeTGYLZMUOOK4681-79-54 14:55:00 Test Item Value Reference Range Interpretation Comments HSV 1 IgG (test code = HSV 1 IgG) no gt [facility] HospitalKztgyykOYVMWDPYCS1565-52-97 14:55:00 Test Item Value Reference Range Interpretation Comments HSV 2 IgG (test code = HSV 2 IgG) no gt [facility] HospitalPxvkeisGFWUHMLBAI5902-09-33 14:55:00 Test Item Value Reference Range Interpretation Comments CMV IgM (test code = CMV IgM) 0.2 [facility] HospitalRebtmfqEERRYMMOPR2023-51-87 14:55:00 Test Item Value Reference Range Interpretation Comments CMV IgG (test code = Reactive *ABN*(05/23/18 CMV IgG) 9:55 AM) [facility] HospitalUvpggjhIFQGGDZHHS5578-17-63 14:55:00 Test Item Value Reference Range Interpretation Comments EBV VCA IgG (test code = EBV VCA IgG) no gt [facility] HospitalDptwpamWYSUUVEZQU0212-59-33 14:55:00 Test Item Value Reference Range Interpretation Comments Hep Bs Ab (test code = Hep Bs Ab) 4.5 [facility] HospitalFkuxchxZMTEWCLIWY0753-50-70 14:55:00 Test Item Value Reference Range Interpretation Comments Hep C Ab (test code = Negative *NA*(05/23/18 Hep C Ab) 9:55 AM) [facility] HospitalYuufcelQCOVFBMYAA6473-88-00 14:55:00 Test Item Value Reference Range Interpretation Comments EBV VCA IgM (test code = EBV VCA IgM) no gt [facility] HospitalKviltgmXIQVHOPKCZ5754-70-77 14:55:00 Test Item Value Reference Range Interpretation Comments Hep Bs Ag (test code Negative *NA*(05/23/18 = Hep Bs Ag) 9:55 AM) [facility] HospitalLrlqaiiQLYBLBGMDJ6456-66-62 14:55:00 Test Item Value Reference Range Interpretation Comments Hep B Core Ab (test Negative *NA*(05/23/18 code = Hep B Core Ab) 9:55 AM) [facility] HospitalJblesbrYHDAKFUBBT0174-93-43 14:55:00 Test Item Value Reference Range Interpretation Comments HIV Ag/Ab 4th Gen Negative *NA*(05/23/18 (test code = HIV 9:55 AM) Ag/Ab 4th Gen) [facility] HospitalTpicvdwTSTMGIURIF9232-25-80 14:55:00 Test Item Value Reference Range Interpretation Comments MIKE Ser Interp The serum immunofixation (test code = MIKE electrophoresis Ser Interp) demonstrates polyclonal distribution of immunoglobulins. No monoclonal immunoglobulins are detected. The electronic medical record has been reviewed for relevant history. I have personally reviewed the test results and concur with the resident's interpretation. CPT 70073-GA [facility] HospitalRdrhlumGKIWDWJEZT8758-57-72 14:55:00 Test Item Value Reference Range Interpretation Comments MIKE Ser Pattern Diffusely staining (test code = MIKE immunoreactivity is present Ser Pattern) in the IgG, IgA, IgM, kappa, and lambda lanes in a normal polyclonal distribution. No monoclonal immunoglobulins are detected. [facility] HospitalUaneogbHPPCHQ9363-82-32 14:55:00 Test Item Value Reference Range Interpretation Comments VLDL (test code = VLDL) 30 1 [facility] HospitalYtqoqnzRKDUNO1575-40-77 14:55:00 Test Item Value Reference Range Interpretation Comments LDL (Calculated) (test code = LDL 74 (Calculated)) [facility]YnjhwmaTONBIE9531-20-51 14:55:00 Test Item Value Reference Range Interpretation Comments Chol (test code = Chol) 176 [facility] HospitalHpkpihgKESBCS8266-62-20 14:55:00 Test Item Value Reference Range Interpretation Comments HDL (test code = HDL) 72 [facility] HospitalHsqlnrcWZGCKU7232-21-28 14:55:00 Test Item Value Reference Range Interpretation Comments Trig (test code = Trig) 152 [facility] HospitalCzfwsfqTHYIMH3153-94-11 14:55:00 Test Item Value Reference Range Interpretation Comments CHD Risk (test code = CHD Risk) 2.44 1 4.00-7.30 [facility] HospitalPARASITOLOGY - GRSRFKNZ8727-69-38 14:55:00 Test Item Value Reference Range Interpretation Comments Strongyloides Antibodies (test code Negative = Strongyloides Antibodies) [facility] HospitalPARATHYROID IKWJICP7257-13-35 14:55:00 Test Item Value Reference Range Interpretation Comments PTH Intact (test code = PTH Intact) 286.0 18.4-80.1 [facility] COURGBFCO8643-90-06 14:55:00 Test Item Value Reference Range Interpretation Comments PSA (test code = PSA) 0.46 See_Comment [Auto mated message] The system which ge nerated this result transmit emerson reference range : <=4.00. The reference r yared was not used to interpr et this result as erinn l/abnormal. [facility] AOTDEYNUN3524-25-58 14:55:00 Test Item Value Reference Range Interpretation Comments Hgb A1C (test code = Hgb A1C) 4.9 [facility] XOOXUTHEO3441-60-38 14:55:00 Test Item Value Reference Range Interpretation Comments Nicotine Lvl (test code = None Detected Nicotine Lvl) [facility]2018-08-15 14:55:00 Test Item Value Reference Range Interpretation Comments Cotinine Lvl (test code = None Detected Cotinine Lvl) [facility] VTODB8987-66-69 14:55:00 Test Item Value Reference Range Interpretation Comments % Satur Fe (test code = % Satur Fe) 35 12-57 [facility] ETACK8994-16-82 14:55:00 Test Item Value Reference Range Interpretation Comments UIBC (test code = UIBC) 179 110-370 [facility] HBAVV6093-19-13 14:55:00 Test Item Value Reference Range Interpretation Comments TIBC (test code = TIBC) 276 228-428 [facility] PTNGS6907-94-30 14:55:00 Test Item Value Reference Range Interpretation Comments Iron (test code = Iron) 97 45-160 [facility] JGMRP9256-31-51 14:55:00 Test Item Value Reference Range Interpretation Comments Ferritin Lvl (test code = Ferritin Lvl) 292 22-097 [facility] BANK YHQJRWN0498-17-40 14:55:00 Test Item Value Reference Range Interpretation Comments OP ABORh Int (test code = OP ABORh Int) O POS [facility]2018-08-15 14:55:00 Test Item Value Reference Range Interpretation Comments Phosphorus (test code = Phosphorus) 8.0 2.5-4.5 [facility]2018-08-15 14:55:00 Test Item Value Reference Range Interpretation Comments Magnesium Lvl (test code = Magnesium 2.5 1.8-2.4 Lvl) [facility]2018-08-15 14:55:00 Test Item Value Reference Range Interpretation Comments Vitamin D, 25-OH, Total (test code = 26.3 30.0-100.0 Vitamin D, 25-OH, Total) [facility]2018-08-15 14:55:00 Test Item Value Reference Range Interpretation Comments Uric Acid (test code = Uric Acid) 3.5 3.8-8.0 [facility]2018-08-15 14:55:00 Test Item Value Reference Range Interpretation Comments eGFR (test code = eGFR) 7 [facility]2018-08-15 14:55:00 Test Item Value Reference Range Interpretation Comments Alk Phos (test code = Alk Phos) 80 39-136 [facility]2018-08-15 14:55:00 Test Item Value Reference Range Interpretation Comments Bili Total (test code = Bili Total) 0.4 0.2-1.3 [facility]2018-08-15 14:55:00 Test Item Value Reference Range Interpretation Comments Albumin Lvl (test code = Albumin Lvl) 4.3 3.5-5.0 [facility]2018-08-15 14:55:00 Test Item Value Reference Range Interpretation Comments ALT (test code = ALT) 22 See_Comment [Auto mated message] The system which ge nerated this result transmit emerson reference range : <=65. The reference range was not used to interpr et this result as erinn l/abnormal. [facility] HospitalYourListen.com UBVMI1202-73-89 14:55:00 Test Item Value Reference Range Interpretation Comments Calcium Lvl (test code = Calcium Lvl) 8.8 8.5-10.5 [facility]2018-08-15 14:55:00 Test Item Value Reference Range Interpretation Comments Total Protein (test code = Total 8.1 6.4-8.4 Protein) [facility]2018-08-15 14:55:00 Test Item Value Reference Range Interpretation Comments AST (test code = AST) 12 See_Comment [Auto mated message] The system which ge nerated this result transmit emerson reference range : <=37. The reference range was not used to interpr et this result as erinn l/abnormal. [facility]2018-08-15 14:55:00 Test Item Value Reference Range Interpretation Comments CO2 (test code = CO2) 26 24-32 [facility]2018-08-15 14:55:00 Test Item Value Reference Range Interpretation Comments Chloride Lvl (test code = Chloride Lvl) 97 95-109 [facility]2018-08-15 14:55:00 Test Item Value Reference Range Interpretation Comments Potassium Lvl (test code = Potassium 3.8 3.5-5.1 Lvl) [facility]2018-08-15 14:55:00 Test Item Value Reference Range Interpretation Comments Creatinine Lvl (test code = Creatinine 8.22 0.50-1.40 Lvl) [facility]2018-08-15 14:55:00 Test Item Value Reference Range Interpretation Comments Sodium Lvl (test code = Sodium Lvl) 136 135-145 [facility]2018-08-15 14:55:00 Test Item Value Reference Range Interpretation Comments BUN (test code = BUN) 59 7-22 [facility]2018-08-15 14:55:00 Test Item Value Reference Range Interpretation Comments Glucose Lvl (test code = Glucose Lvl) 98 70-99 [facility]2018-08-15 14:55:00 Test Item Value Reference Range Interpretation Comments Globulin (test code = Globulin) 3.8 2.7-4.2 [facility]2018-08-15 14:55:00 Test Item Value Reference Range Interpretation Comments A/G Ratio (test code = A/G Ratio) 1.1 1 0.7-1.6 [facility]2018-08-15 14:55:00 Test Item Value Reference Range Interpretation Comments AGAP (test code = AGAP) 16.8 10.0-20.0 [facility] [id number] 14:55:[facility] Test Item Value Reference Range Interpretation Comments B/C Ratio (test code = B/C Ratio) 7 1 6-25 [facility] QIYZGK4295-51-20 14:55:00 Test Item Value Reference Range Interpretation Comments Phencyclidine Scr (test Negative (05/23/18 code = Phencyclidine Scr) 9:55 AM) [facility] [id number] 14:55:00 Test Item Value Reference Range Interpretation Comments 6-Acetylmor Scr (test Negative (05/23/18 9:55 code = 6-Acetylmor AM) Scr) [facility] [id number] 14:55:00 Test Item Value Reference Range Interpretation Comments Opiate Scr (test code Positive *ABN*(05/23/18 = Opiate Scr) 9:55 AM) [facility] [id number] 14:55:00 Test Item Value Reference Range Interpretation Comments Methadone Scr (test Negative (05/23/18 9:55 code = Methadone Scr) AM) [facility] [id number] 14:55:00 Test Item Value Reference Range Interpretation Comments Rosa M Scr (test code = Negative (05/23/18 9:55 Rosa M Scr) AM) [facility] [id number] 14:55:00 Test Item Value Reference Range Interpretation Comments Cutoff Values (test See Note (05/23/18 9:55 code = Cutoff Values) AM) [facility] [id number] 14:55:00 Test Item Value Reference Range Interpretation Comments Cocaine Scr (test code Negative (05/23/18 9:55 = Cocaine Scr) AM) [facility] CNXCWN9237-09-16 14:55:00 Test Item Value Reference Range Interpretation Comments Amph Scr (test code = Negative (05/23/18 9:55 Amph Scr) AM) [facility] [id number] 14:55:00 Test Item Value Reference Range Interpretation Comments Cannab Scr (test code Negative (05/23/18 9:55 = Cannab Scr) AM) [facility] [id number] 14:55:00 Test Item Value Reference Range Interpretation Comments Benzodiaz Scr (test Positive *ABN*(05/23/18 code = Benzodiaz Scr) 9:55 AM) [facility] [id number] 14:55:00 Test Item Value Reference Range Interpretation Comments Opiate Qnt (test code = See Note 2(05/23/18 Opiate Qnt) 9:55 AM) [facility] [id number] 14:55:00 Test Item Value Reference Range Interpretation Comments Benzodiaz Qnt (test code See Note 1(05/23/18 = Benzodiaz Qnt) 9:55 AM) [facility] HospitalCmmifqeYYVWODBJLR6503-74-49 14:55:00 Test Item Value Reference Range Interpretation Comments Eosinophils # (test code 0.3 See_Comment [A utomated message] The = Eosinophils #) system whic h generated this result tra nsmitted reference range : <=0.5. The reference r yared was not used to int erpret this result as normal/abnormal . [facility] CenterQjxlfegTRIBUXBAVG7630-32-26 14:55:00 Test Item Value Reference Range Interpretation Comments Basophils # (test code 0.1 See_Comment [Aut omated message] The = Basophils #) system which generated this result tra nsmitted reference range : <=0.2. The reference r yared was not used to int erpret this result as normal/abnormal . [facility] CenterEaurihdFCVTIIPVCH6432-04-71 14:55:00 Test Item Value Reference Range Interpretation Comments Neutrophils # (test code = Neutrophils 3.9 1.5-8.1 #) [facility] CenterYtqshukSLSEEVIWVE0691-56-91 14:55:00 Test Item Value Reference Range Interpretation Comments Lymphocytes # (test code = Lymphocytes 1.3 1.0-5.5 #) [facility] CenterZxoricsVYDPSVGNUF5856-61-04 14:55:00 Test Item Value Reference Range Interpretation Comments Monocytes # (test code 0.5 See_Comment [Aut omated message] The = Monocytes #) system which generated this result tra nsmitted reference range : <=0.8. The reference r yared was not used to int erpret this result as normal/abnormal . [facility] CenterWumwzsnUSLGLKDFKP9763-02-42 14:55:00 Test Item Value Reference Range Interpretation Comments Basophils (test code = 0.9 See_Comment [Aut omated message] The Basophils) system which ge nerated this result tra nsmitted reference range : <=1.0. The reference r yared was not used to int erpret this result as normal/abnormal . [facility] CenterFwxkycvPXBYUNBKRO5063-48-49 14:55:00 Test Item Value Reference Range Interpretation Comments Monocytes (test code = Monocytes) 7.7 2.0-12.0 [facility] CenterXxkiltpCALYRVOLNA0658-09-00 14:55:00 Test Item Value Reference Range Interpretation Comments Eosinophils (test code = 4.3 See_Comment [A utomated message] The Eosinophils) system which ge nerated this result tra nsmitted reference range : <=4.0. The reference r yared was not used to int erpret this result as normal/abnormal . [facility] CenterNyovqwvUQLJSPCFRO0892-31-40 14:55:00 Test Item Value Reference Range Interpretation Comments Lymphocytes (test code = Lymphocytes) 22.0 20.0-40.0 [facility] CenterCqzjthzCZRJYRQDKX0042-05-80 14:55:00 Test Item Value Reference Range Interpretation Comments Segs (test code = Segs) 65.1 45.0-75.0 [facility] CenterAyzjskdQGEXEJBZFP1649-07-86 14:55:00 Test Item Value Reference Range Interpretation Comments INR (test code = INR) 1.06 1 0.85-1.17 [facility] CenterVpygbkrMLXJRZLNQY3001-82-74 14:55:00 Test Item Value Reference Range Interpretation Comments PT (test code = PT) 13.8 s 12.0-14.7 [facility] CenterJslhtdbEVIOPUFACY2293-82-37 14:55:00 Test Item Value Reference Range Interpretation Comments PTT (test code = PTT) 35.0 s 22.9-35.8 [facility] CenterWdaweeoCMLPAVADRN4073-81-03 14:55:00 Test Item Value Reference Range Interpretation Comments RDW (test code = RDW) 18.1 11.5-14.5 [facility] CenterHxiezwnNHHRUPLFRX2904-47-86 14:55:00 Test Item Value Reference Range Interpretation Comments MPV (test code = MPV) 8.0 7.4-10.4 [facility] CenterDymtspcHVUEPFFBWJ9024-68-16 14:55:00 Test Item Value Reference Range Interpretation Comments Platelet (test code = Platelet) 228 133-450 [facility] CenterZgmvgsoXJPOYACZXZ9830-90-45 14:55:00 Test Item Value Reference Range Interpretation Comments MCHC (test code = MCHC) 33.3 32.0-36.0 [facility] CenterCwfbbuvOBLGQKEVGB2137-70-23 14:55:00 Test Item Value Reference Range Interpretation Comments RBC (test code = RBC) 4.54 4.70-6.10 [facility] CenterHthcptbHABBJQFLYO0172-93-42 14:55:00 Test Item Value Reference Range Interpretation Comments WBC (test code = WBC) 6.1 3.7-10.4 [facility] CenterJbotrmfOBQHKPJSTD7073-29-25 14:55:00 Test Item Value Reference Range Interpretation Comments MCV (test code = MCV) 80.9 80.0-94.0 [facility] CenterAyqnrsbQCBAHERZGK0569-08-27 14:55:00 Test Item Value Reference Range Interpretation Comments Hct (test code = Hct) 36.7 42.0-54.0 [facility] CenterGytpgsoARCAQFMAOQ6259-66-76 14:55:00 Test Item Value Reference Range Interpretation Comments MCH (test code = MCH) 27.0 pg 27.0-31.0 [facility] CenterLiitgloCNJDYZSJPD4405-25-27 14:55:00 Test Item Value Reference Range Interpretation Comments Hgb (test code = Hgb) 12.2 14.0-18.0 [facility] HospitalPptgsbcMETMMUSKPI0205-71-54 14:55:00 Test Item Value Reference Range Interpretation Comments Varicella IgG (test code = Varicella no gt IgG) [facility] HospitalCnqhvgdSQZKBMSQOB0013-95-13 14:55:00 Test Item Value Reference Range Interpretation Comments Varicella IgM (test no gt See_Comment [Automa emerson message] The code = Varicella IgM) system which generated this result tra nsmitted reference range : <=0.90. The reference r yared was not used to int erpret this result as normal/abnormal . [facility] HospitalWzfbcciYEFFTGNXSD9349-52-54 14:55:00 Test Item Value Reference Range Interpretation Comments Treponemal Ab (test code Non-Reactive = Treponemal Ab) *NA*(05/23/18 9:55 AM) [facility] HospitalEfqoeqkYJUPDGYXTV8814-96-87 14:55:00 Test Item Value Reference Range Interpretation Comments T-Spot.TB (test code Negative (05/23/18 9:55 = T-Spot.TB) AM) [facility] HospitalXioaivxSHMRCNIYEG9449-14-26 14:55:00 Test Item Value Reference Range Interpretation Comments Gamma % (test code = Gamma %) 18.2 11.1-18.7 [facility] HospitalShkkxasGHVLWBHSVK9171-26-60 14:55:00 Test Item Value Reference Range Interpretation Comments Alpha 2 % (test code = Alpha 2 %) 7.8 7.0-11.9 [facility] HospitalTvawvckIQNIBEDAJQ9412-94-30 14:55:00 Test Item Value Reference Range Interpretation Comments Beta % (test code = Beta %) 9.5 7.8-13.7 [facility] HospitalXreodvhPQPTCFETLT6644-03-17 14:55:00 Test Item Value Reference Range Interpretation Comments Albumin % (test code = Albumin %) 60.9 55.8-66.1 [facility] HospitalNnrjciiHCAGNWCLHB5484-67-36 14:55:00 Test Item Value Reference Range Interpretation Comments Alpha 1 % (test code = Alpha 1 %) 3.6 2.8-4.9 [facility] HospitalDlvyouyPCZDQMFZQQ3426-86-64 14:55:00 Test Item Value Reference Range Interpretation Comments Gamma Glob (test code = Gamma Glob) 1.47 0.71-1.57 [facility] HospitalQalsepgDMPGFHPMAQ1628-89-92 14:55:00 Test Item Value Reference Range Interpretation Comments Tot Prot (SPE) (test code = Tot Prot 8.1 6.4-8.4 (SPE)) [facility] HospitalJjrwoxjHLCYRQAPHP9392-15-64 14:55:00 Test Item Value Reference Range Interpretation Comments Beta Glob (test code = Beta Glob) 0.77 0.50-1.15 [facility] HospitalKeuetglITTVSSKQFG8974-04-31 14:55:00 Test Item Value Reference Range Interpretation [...] and concur with the resident's interpretation. CPT 75216-SF [facility] HospitalVdejbhtUGLWWCZQEG6049-07-56 14:55:00 Test Item Value Reference Range Interpretation Comments Albumin (SPE) (test code = Albumin 4.93 3.57-5.55 (SPE)) [facility] HospitalYwiofpwHUDXUZCLYO6078-73-83 14:55:00 Test Item Value Reference Range Interpretation Comments Alpha 1 Glob (test code = Alpha 1 Glob) 0.29 0.18-0.41 [facility] HospitalQjwqtwcLYJIQORSJF5841-26-23 14:55:00 Test Item Value Reference Range Interpretation Comments Alpha 2 Glob (test code = Alpha 2 Glob) 0.63 0.45-1.00 [facility] HospitalEixaelrLHXKKVCAZL0864-37-59 14:55:00 Test Item Value Reference Range Interpretation Comments [place]/Lambda Free Light Chains Ratio 2.18 0.26-1.65 (test code = [place]/Lambda Free Light Chains Ratio) [facility] HospitalVtpghsmWKIDSGKKTV6054-05-79 14:55:00 Test Item Value Reference Range Interpretation Comments Lambda Free Light Chains (test code = 89.85 5.70-26.30 Lambda Free Light Chains) [facility] [facility]ibskwoUOGJHGHEFF5335-59-55 14:55:00 Test Item Value Reference Range Interpretation Comments [place] [employer] (test code = 196.11 3.30-19.40 [place] [employer]) [facility]OgtqwzwVLTMAETQPF9729-95-55 14:55:00 Test Item Value Reference Range Interpretation Comments HSV 1 IgG (test code = HSV 1 IgG) no gt [facility] HospitalRbigzmqHIJEKBQZNA6166-55-47 14:55:00 Test Item Value Reference Range Interpretation Comments HSV 2 IgG (test code = HSV 2 IgG) no gt [facility] HospitalDwlomtvQERQAXKQAK7643-96-13 14:55:00 Test Item Value Reference Range Interpretation Comments CMV IgM (test code = CMV IgM) 0.2 [facility] HospitalPttbevpSNTGBBCLLD5649-98-34 14:55:00 Test Item Value Reference Range Interpretation Comments CMV IgG (test code = Reactive *ABN*(05/23/18 CMV IgG) 9:55 AM) [facility] HospitalYuijtnaTHCHOKFWCZ2482-04-81 14:55:00 Test Item Value Reference Range Interpretation Comments EBV VCA IgG (test code = EBV VCA IgG) no gt [facility] HospitalQzbfbqfHDLSBNYJUL0367-62-07 14:55:00 Test Item Value Reference Range Interpretation Comments Hep Bs Ab (test code = Hep Bs Ab) 4.5 [facility] HospitalGbnfuctTMJPNBNKSO6414-84-06 14:55:00 Test Item Value Reference Range Interpretation Comments Hep C Ab (test code = Negative *NA*(05/23/18 Hep C Ab) 9:55 AM) [facility] HospitalZywfdyzLUDFANZFWR2036-89-75 14:55:00 Test Item Value Reference Range Interpretation Comments EBV VCA IgM (test code = EBV VCA IgM) no gt [facility] HospitalAomaldrTHFVUUWEPJ8032-40-83 14:55:00 Test Item Value Reference Range Interpretation Comments Hep Bs Ag (test code Negative *NA*(05/23/18 = Hep Bs Ag) 9:55 AM) [facility] HospitalSnjrdicCVMCIBREAG2588-85-43 14:55:00 Test Item Value Reference Range Interpretation Comments Hep B Core Ab (test Negative *NA*(05/23/18 code = Hep B Core Ab) 9:55 AM) [facility] HospitalSepzrwoRHAFUTIALT1824-79-13 14:55:00 Test Item Value Reference Range Interpretation Comments HIV Ag/Ab 4th Gen Negative *NA*(05/23/18 (test code = HIV 9:55 AM) Ag/Ab 4th Gen) [facility] HospitalXlxldsmLDPCKZJPWG5150-60-24 14:55:00 Test Item Value Reference Range Interpretation Comments MIKE Ser Interp The serum immunofixation (test code = MIKE electrophoresis Ser Interp) demonstrates polyclonal distribution of immunoglobulins. No monoclonal immunoglobulins are detected. The electronic medical record has been reviewed for relevant history. I have personally reviewed the test results and concur with the resident's interpretation. CPT 96407-MW [facility] HospitalBcqohupOFOURGZRXN5854-19-35 14:55:00 Test Item Value Reference Range Interpretation Comments MIKE Ser Pattern Diffusely staining (test code = MIKE immunoreactivity is present Ser Pattern) in the IgG, IgA, IgM, kappa, and lambda lanes in a normal polyclonal distribution. No monoclonal immunoglobulins are detected. [facility] HospitalXsudcwzRCUDCG6276-35-92 14:55:00 Test Item Value Reference Range Interpretation Comments VLDL (test code = VLDL) 30 1 [facility] HospitalTkctwbnMPGNCL5287-26-30 14:55:00 Test Item Value Reference Range Interpretation Comments LDL (Calculated) (test code = LDL 74 (Calculated)) [facility] HospitalOewisibWGBAYV0215-13-33 14:55:00 Test Item Value Reference Range Interpretation Comments Chol (test code = Chol) 176 [facility] HospitalIezdmosCQAAMM6245-88-22 14:55:00 Test Item Value Reference Range Interpretation Comments HDL (test code = HDL) 72 [facility]GrhkxesIGMSZR0052-46-49 14:55:00 Test Item Value Reference Range Interpretation Comments Trig (test code = Trig) 152 [facility] HospitalMfelvcdSWFFVT3149-08-77 14:55:00 Test Item Value Reference Range Interpretation Comments CHD Risk (test code = CHD Risk) 2.44 1 4.00-7.30 [facility] HospitalPARASITOLOGY - QYDMDMSB0653-07-87 14:55:00 Test Item Value Reference Range Interpretation Comments Strongyloides Antibodies (test code Negative = Strongyloides Antibodies) [facility] HospitalPARATHYROID ATJCKAL2392-19-49 14:55:00 Test Item Value Reference Range Interpretation Comments PTH Intact (test code = PTH Intact) 286.0 18.4-80.1 [facility] HospitalSPECIAL HDWHYRAPM8200-50-67 14:55:00 Test Item Value Reference Range Interpretation Comments PSA (test code = PSA) 0.46 See_Comment [Auto mated message] The system which ge nerated this result transmit emerson reference range : <=4.00. The reference r yared was not used to interpr et this result as erinn l/abnormal. [facility]SPECIAL SOFZKUFRS9184-28-52 14:55:00 Test Item Value Reference Range Interpretation Comments Hgb A1C (test code = Hgb A1C) 4.9 [facility] VJNRVXUFG7180-03-27 14:55:00 Test Item Value Reference Range Interpretation Comments Nicotine Lvl (test code = None Detected Nicotine Lvl) [facility] YLTADMYUA3602-39-98 14:55:00 Test Item Value Reference Range Interpretation Comments Cotinine Lvl (test code = None Detected Cotinine Lvl) [facility] HospitalCARDIAC GHDIWWF1797-28-71 12:03:00 Test Item Value Reference Range Interpretation Comments Troponin-I (test code 0.04 See_Comment [Auto mated message] The = Troponin-I) system which g enerated this result transmit emerson reference range : <=0.40. The reference r yared was not used to interpr et this result as erinn l/abnormal. [facility] HospitalannCARDIAC GALHBJY4278-88-80 12:03:00 Test Item Value Reference Range Interpretation Comments Total CK (test code = Total CK) 26 12-191 [facility] HospitalCourseloadCARDIAC [id number] 12:03:00 Test Item Value Reference Range Interpretation Comments Troponin-I (test code 0.04 See_Comment [Auto mated message] The = Troponin-I) system which g enerated this result transmit emerson reference range : <=0.40. The reference r yared was not used to interpr et this result as erinn l/abnormal. [facility] [place]2018-07-08 12:03:00 Test Item Value Reference Range Interpretation Comments Total CK (test code = Total CK) 26 [facility] HospitalCardFlight2018-[facility] 12:03:00 Test Item Value Reference Range Interpretation Comments Troponin-I (test code 0.04 See_Comment [Auto mated message] The = Troponin-I) system which g enerated this result transmit emerson reference range : <=0.40. The reference r yared was not used to interpr et this result as erinn l/abnormal. [facility] [place]2018-07-08 12:03:00 Test Item Value Reference Range Interpretation Comments Total CK (test code = Total CK) 26 [facility] 12:03:00 Test Item Value Reference Range Interpretation Comments Troponin-I (test code 0.04 See_Comment [Auto mated message] The = Troponin-I) system which g enerated this result transmit emerson reference range : <=0.40. The reference r yared was not used to interpr et this result as erinn l/abnormal. [facility] [place]2018-07-08 12:03:00 Test Item Value Reference Range Interpretation Comments Total CK (test code = Total CK) 26 [facility] 07:54:00 Test Item Value Reference Range Interpretation Comments Troponin-I (test code 0.02 See_Comment [Auto mated message] The = Troponin-I) system which g enerated this result transmit emerson reference range : <=0.40. The reference r yared was not used to interpr et this result as erinn l/abnormal. [facility] [place]2018-07-08 07:54:00 Test Item Value Reference Range Interpretation Comments Total CK (test code = Total CK) 31 [facility] EZBSJ8579-55-86 07:54:00 Test Item Value Reference Range Interpretation Comments Magnesium Lvl (test code = Magnesium 1.9 1.8-2.4 Lvl) [facility]2018-07-08 07:54:00 Test Item Value Reference Range Interpretation Comments B/C Ratio (test code = B/C Ratio) 6 1 6-25 [place] 362648-07-08 07:54:00 Test Item Value Reference Range Interpretation Comments Albumin Lvl (test code = Albumin Lvl) 3.3 3.5-5.0 [facility]2018-07-08 07:54:00 Test Item Value Reference Range Interpretation Comments A/G Ratio (test code = A/G Ratio) 0.9 1 0.7-1.6 [facility]2018-07-08 07:54:00 Test Item Value Reference Range Interpretation Comments Total Protein (test code = Total 7.1 6.4-8.4 Protein) [facility]2018-07-08 07:54:00 Test Item Value Reference Range Interpretation Comments Globulin (test code = Globulin) 3.8 2.7-4.2 [facility]2018-07-08 07:54:00 Test Item Value Reference Range Interpretation Comments ALT (test code = ALT) 18 See_Comment [Auto mated message] The system which ge nerated this result transmit emerson reference range : <=65. The reference range was not used to interpr et this result as erinn l/abnormal. [facility]2018-07-08 07:54:00 Test Item Value Reference Range Interpretation Comments AST (test code = AST) 14 See_Comment [Auto mated message] The system which ge nerated this result transmit emerson reference range : <=37. The reference range was not used to interpr et this result as erinn l/abnormal. [facility]2018-07-08 07:54:00 Test Item Value Reference Range Interpretation Comments Alk Phos (test code = Alk Phos) 82 39-136 [facility]2018-07-08 07:54:00 Test Item Value Reference Range Interpretation Comments Bili Total (test code = Bili Total) 0.5 0.2-1.3 [facility]2018-07-08 07:54:00 Test Item Value Reference Range Interpretation Comments eGFR (test code = eGFR) 10 [facility]2018-07-08 07:54:00 Test Item Value Reference Range Interpretation Comments Potassium Lvl (test code = Potassium 3.2 3.5-5.1 Lvl) [facility]2018-07-08 07:54:00 Test Item Value Reference Range Interpretation Comments Chloride Lvl (test code = Chloride Lvl) 103 95-109 [facility]2018-07-08 07:54:00 Test Item Value Reference Range Interpretation Comments Glucose Lvl (test code = Glucose Lvl) 95 70-99 [facility]2018-07-08 07:54:00 Test Item Value Reference Range Interpretation Comments BUN (test code = BUN) 34 7-22 [facility]2018-07-08 07:54:00 Test Item Value Reference Range Interpretation Comments Creatinine Lvl (test code = Creatinine 5.83 0.50-1.40 Lvl) [facility]2018-07-08 07:54:00 Test Item Value Reference Range Interpretation Comments Sodium Lvl (test code = Sodium Lvl) 138 135-145 [facility]2018-07-08 07:54:00 Test Item Value Reference Range Interpretation Comments CO2 (test code = CO2) 23 24-32 [facility]2018-07-08 07:54:00 Test Item Value Reference Range Interpretation Comments AGAP (test code = AGAP) 15.2 10.0-20.0 [facility]2018-07-08 07:54:00 Test Item Value Reference Range Interpretation Comments Calcium Lvl (test code = Calcium Lvl) 8.5 8.5-10.5 [facility]2018-07-08 07:54:00 Test Item Value Reference Range Interpretation Comments Phosphorus (test code = Phosphorus) 4.2 2.5-4.5 [facility]GdoavkbKQSVVBAVEB8255-16-36 07:54:00 Test Item Value Reference Range Interpretation Comments Lymphocytes # (test code = Lymphocytes 1.5 1.0-5.5 #) [facility] CenterVealailGLHLQADTKF2952-30-79 07:54:00 Test Item Value Reference Range Interpretation Comments Monocytes # (test code 0.5 See_Comment [Aut omated message] The = Monocytes #) system which generated this result tra nsmitted reference range : <=0.8. The reference r yared was not used to int erpret this result as normal/abnormal . [facility] CenterOimwetrHFDISKERXS8416-95-69 07:54:00 Test Item Value Reference Range Interpretation Comments Basophils (test code = 1.0 See_Comment [Aut omated message] The Basophils) system which ge nerated this result tra nsmitted reference range : <=1.0. The reference r yared was not used to int erpret this result as normal/abnormal . [facility] CenterJpzbdpbMKPRSKSGMK1724-80-83 07:54:00 Test Item Value Reference Range Interpretation Comments Segs-Bands # (test code = Segs-Bands #) 3.5 1.5-8.1 [facility] CenterSecjjkyODXBMGGNZA2220-92-69 07:54:00 Test Item Value Reference Range Interpretation Comments Basophils # (test code 0.1 See_Comment [Aut omated message] The = Basophils #) system which generated this result tra nsmitted reference range : <=0.2. The reference r yared was not used to int erpret this result as normal/abnormal . [facility] CenterCcjpgntGZMCKPHRAF2502-00-04 07:54:00 Test Item Value Reference Range Interpretation Comments Eosinophils # (test code 0.2 See_Comment [A utomated message] The = Eosinophils #) system whic h generated this result tra nsmitted reference range : <=0.5. The reference r yared was not used to int erpret this result as normal/abnormal . [facility] CenterIfgunixRGUFKCNBBN0880-18-97 07:54:00 Test Item Value Reference Range Interpretation Comments Lymphocytes (test code = Lymphocytes) 26.7 20.0-40.0 [facility] CenterLyywvlaWOICWGLWFB4089-51-40 07:54:00 Test Item Value Reference Range Interpretation Comments Segs (test code = Segs) 61.0 45.0-75.0 [facility] CenterNbibkytCKRLBJBPXD2067-55-33 07:54:00 Test Item Value Reference Range Interpretation Comments Monocytes (test code = Monocytes) 8.0 2.0-12.0 [facility] CenterOkmljcaWIYTWMMLRY0340-60-58 07:54:00 Test Item Value Reference Range Interpretation Comments Eosinophils (test code = 3.3 See_Comment [A utomated message] The Eosinophils) system which ge nerated this result tra nsmitted reference range : <=4.0. The reference r yared was not used to int erpret this result as normal/abnormal . [facility] CenterGqzbjymLBKTSQLEEU2745-22-57 07:54:00 Test Item Value Reference Range Interpretation Comments WBC (test code = WBC) 5.7 3.7-10.4 [facility] CenterRndspneXHVVWUEFKU3309-51-17 07:54:00 Test Item Value Reference Range Interpretation Comments RBC (test code = RBC) 4.48 4.70-6.10 [facility] CenterAmlcblgKAZOUQMKSA3538-66-94 07:54:00 Test Item Value Reference Range Interpretation Comments RDW (test code = RDW) 17.7 11.5-14.5 [facility] CenterWvwagveTVOSYSDVRS6363-42-18 07:54:00 Test Item Value Reference Range Interpretation Comments Platelet (test code = Platelet) 215 133-450 [facility] CenterAtmtaqnXFFDVAOHXT9640-34-31 07:54:00 Test Item Value Reference Range Interpretation Comments MPV (test code = MPV) 7.2 7.4-10.4 [facility] CenterCvsoepvHMZRTQSVET2820-60-33 07:54:00 Test Item Value Reference Range Interpretation Comments Hgb (test code = Hgb) 11.6 14.0-18.0 [facility]WxuijbbCMGLBNCOAF5167-78-70 07:54:00 Test Item Value Reference Range Interpretation Comments Hct (test code = Hct) 35.5 42.0-54.0 [facility] CenterNlbuhmqUBGYUDZYXV5491-59-50 07:54:00 Test Item Value Reference Range Interpretation Comments MCHC (test code = MCHC) 32.6 32.0-36.0 [facility] HospitalMtjwhlkLJXXFHIPFI7861-69-64 07:54:00 Test Item Value Reference Range Interpretation Comments MCV (test code = MCV) 79.2 80.0-94.0 [facility] HospitalDqeysuwZHOAXDRMUO1308-63-79 07:54:00 Test Item Value Reference Range Interpretation Comments MCH (test code = MCH) 25.8 pg 27.0-31.0 [facility] ZWYKZMJ9462-34-48 07:54:00 Test Item Value Reference Range Interpretation Comments Troponin-I (test code 0.02 See_Comment [Auto mated message] The = Troponin-I) system which g enerated this result transmit emerson reference range : <=0.40. The reference r yarde was not used to interpr et this result as erinn l/abnormal. [facility] HospitalCARD[facility]AC JNIVVKH7637-02-72 07:54:00 Test Item Value Reference Range Interpretation Comments Total CK (test code = Total CK) 31 12-191 [facility] HospitalPeeP [employer] [id number] 07:54:00 Test Item Value Reference Range Interpretation Comments Magnesium Lvl (test code = Magnesium 1.9 1.8-2.4 Lvl) [facility] [id number] 07:54:00 Test Item Value Reference Range Interpretation Comments B/C Ratio (test code = B/C Ratio) 6 1 6-25 [facility] [id number] 07:54:00 Test Item Value Reference Range Interpretation Comments Albumin Lvl (test code = Albumin Lvl) 3.3 3.5-5.0 [facility] [id number] 07:54:00 Test Item Value Reference Range Interpretation Comments A/G Ratio (test code = A/G Ratio) 0.9 1 0.7-1.6 [facility] [id number] 07:54:00 Test Item Value Reference Range Interpretation Comments Total Protein (test code = Total 7.1 6.4-8.4 Protein) [facility] [id number] 07:54:00 Test Item Value Reference Range Interpretation Comments Globulin (test code = Globulin) 3.8 2.7-4.2 [facility] [id number] 07:54:00 Test Item Value Reference Range Interpretation Comments ALT (test code = ALT) 18 See_Comment [Auto mated message] The system which ge nerated this result transmit emerson reference range : <=65. The reference range was not used to interpr et this result as erinn l/abnormal. [facility] [id number] 07:54:00 Test Item Value Reference Range Interpretation Comments AST (test code = AST) 14 See_Comment [Auto mated message] The system which ge nerated this result transmit emerson reference range : <=37. The reference range was not used to interpr et this result as erinn l/abnormal. [facility] [id number] 07:54:00 Test Item Value Reference Range Interpretation Comments Alk Phos (test code = Alk Phos) 82 39-136 [facility]2018-07-08 07:54:00 Test Item Value Reference Range Interpretation Comments Bili Total (test code = Bili Total) 0.5 0.2-1.3 [facility]2018-07-08 07:54:00 Test Item Value Reference Range Interpretation Comments eGFR (test code = eGFR) 10 [facility]2018-07-08 07:54:00 Test Item Value Reference Range Interpretation Comments Potassium Lvl (test code = Potassium 3.2 3.5-5.1 Lvl) [facility]2018-07-08 07:54:00 Test Item Value Reference Range Interpretation Comments Chloride Lvl (test code = Chloride Lvl) 103 95-109 [facility]2018-07-08 07:54:00 Test Item Value Reference Range Interpretation Comments Glucose Lvl (test code = Glucose Lvl) 95 70-99 [facility]2018-07-08 07:54:00 Test Item Value Reference Range Interpretation Comments BUN (test code = BUN) 34 7-22 [facility]2018-07-08 07:54:00 Test Item Value Reference Range Interpretation Comments Creatinine Lvl (test code = Creatinine 5.83 0.50-1.40 Lvl) [facility]2018-07-08 07:54:00 Test Item Value Reference Range Interpretation Comments Sodium Lvl (test code = Sodium Lvl) 138 135-145 [facility]2018-07-08 07:54:00 Test Item Value Reference Range Interpretation Comments CO2 (test code = CO2) 23 24-32 [facility]2018-07-08 07:54:00 Test Item Value Reference Range Interpretation Comments AGAP (test code = AGAP) 15.2 10.0-20.0 [facility]2018-07-08 07:54:00 Test Item Value Reference Range Interpretation Comments Calcium Lvl (test code = Calcium Lvl) 8.5 8.5-10.5 [facility]2018-07-08 07:54:00 Test Item Value Reference Range Interpretation Comments Phosphorus (test code = Phosphorus) 4.2 2.5-4.5 [facility] HospitalQpujwjwCNYRXDVRAZ6036-89-74 07:54:00 Test Item Value Reference Range Interpretation Comments Lymphocytes # (test code = Lymphocytes 1.5 1.0-5.5 #) [facility] CenterJpphfriEWABDYYOCY8910-38-47 07:54:00 Test Item Value Reference Range Interpretation Comments Monocytes # (test code 0.5 See_Comment [Aut omated message] The = Monocytes #) system which generated this result tra nsmitted reference range : <=0.8. The reference r yared was not used to int erpret this result as normal/abnormal . [facility] CenterSlkfgyxHEVJUQRFBN0143-95-55 07:54:00 Test Item Value Reference Range Interpretation Comments Basophils (test code = 1.0 See_Comment [Aut omated message] The Basophils) system which ge nerated this result tra nsmitted reference range : <=1.0. The reference r yared was not used to int erpret this result as normal/abnormal . [facility] CenterRmgwswoEMJPBMJRVT2076-53-79 07:54:00 Test Item Value Reference Range Interpretation Comments Segs-Bands # (test code = Segs-Bands #) 3.5 1.5-8.1 [facility] CenterMslnerfJOJPGDRAGB7568-30-06 07:54:00 Test Item Value Reference Range Interpretation Comments Basophils # (test code 0.1 See_Comment [Aut omated message] The = Basophils #) system which generated this result tra nsmitted reference range : <=0.2. The reference r yared was not used to int erpret this result as normal/abnormal . [facility] CenterFgiurxhOYIMVBDCAJ9779-25-15 07:54:00 Test Item Value Reference Range Interpretation Comments Eosinophils # (test code 0.2 See_Comment [A utomated message] The = Eosinophils #) system whic h generated this result tra nsmitted reference range : <=0.5. The reference r yared was not used to int erpret this result as normal/abnormal . [facility] CenterUlqagjhWLJGLBCJJT3657-51-02 07:54:00 Test Item Value Reference Range Interpretation Comments Lymphocytes (test code = Lymphocytes) 26.7 20.0-40.0 [facility] CenterOchtjqlHIXXNCVSVJ1712-09-28 07:54:00 Test Item Value Reference Range Interpretation Comments Segs (test code = Segs) 61.0 45.0-75.0 [facility] CenterRyvecjtIDJXEHXJGM1864-74-29 07:54:00 Test Item Value Reference Range Interpretation Comments Monocytes (test code = Monocytes) 8.0 2.0-12.0 [facility] CenterDjqozizRZEYWUXRQD3299-52-26 07:54:00 Test Item Value Reference Range Interpretation Comments Eosinophils (test code = 3.3 See_Comment [A utomated message] The Eosinophils) system which ge nerated this result tra nsmitted reference range : <=4.0. The reference r yared was not used to int erpret this result as normal/abnormal . [facility] CenterJfaowsmEDKXLZEHIG2774-27-10 07:54:00 Test Item Value Reference Range Interpretation Comments WBC (test code = WBC) 5.7 3.7-10.4 [facility] CenterSviamqpLJGQKHPRFR7655-96-13 07:54:00 Test Item Value Reference Range Interpretation Comments RBC (test code = RBC) 4.48 4.70-6.10 [facility] CenterBqoqrjtZKVKNZRQZZ1099-37-08 07:54:00 Test Item Value Reference Range Interpretation Comments RDW (test code = RDW) 17.7 11.5-14.5 [facility] CenterBbmujqfIPSCASSOGV1345-95-18 07:54:00 Test Item Value Reference Range Interpretation Comments Platelet (test code = Platelet) 215 133-450 [facility] CenterUvexgbyIDZBUOIRDI9542-25-20 07:54:00 Test Item Value Reference Range Interpretation Comments MPV (test code = MPV) 7.2 7.4-10.4 [facility] CenterOioqwaxRKCGDOHZFH7872-27-10 07:54:00 Test Item Value Reference Range Interpretation Comments Hgb (test code = Hgb) 11.6 14.0-18.0 [facility] CenterYodcwwoXDWAGQDVVK6104-55-47 07:54:00 Test Item Value Reference Range Interpretation Comments Hct (test code = Hct) 35.5 42.0-54.0 [facility] CenterLfbvtzlQQSWMXRLDN7216-41-66 07:54:00 Test Item Value Reference Range Interpretation Comments MCHC (test code = MCHC) 32.6 32.0-36.0 [facility] CenterCaydtvjKEXMHZJBHF7465-95-75 07:54:00 Test Item Value Reference Range Interpretation Comments MCV (test code = MCV) 79.2 80.0-94.0 [facility] CenterNlmdkqpHFDYSHPBCJ8653-74-43 07:54:00 Test Item Value Reference Range Interpretation Comments MCH (test code = MCH) 25.8 pg 27.0-31.0 [facility] OIVCGYW0511-39-80 07:54:00 Test Item Value Reference Range Interpretation Comments Troponin-I (test code 0.02 See_Comment [Auto mated message] The = Troponin-I) system which g enerated this result transmit emerson reference range : <=0.40. The reference r yared was not used to interpr et this result as erinn l/abnormal. [facility] [id number] 07:54:00 Test Item Value Reference Range Interpretation Comments Total CK (test code = Total CK) 31 12-191 [facility] [employer] [id number] 07:54:00 Test Item Value Reference Range Interpretation Comments Magnesium Lvl (test code = Magnesium 1.9 1.8-2.4 Lvl) [facility] [employer] [id number] 07:54:00 Test Item Value Reference Range Interpretation Comments B/C Ratio (test code = B/C Ratio) 6 1 6-25 [facility] [employer] [id number] 07:54:00 Test Item Value Reference Range Interpretation Comments Albumin Lvl (test code = Albumin Lvl) 3.3 3.5-5.0 [facility] [employer] [id number] 07:54:00 Test Item Value Reference Range Interpretation Comments A/G Ratio (test code = A/G Ratio) 0.9 1 0.7-1.6 [facility] [employer] [id number] 07:54:00 Test Item Value Reference Range Interpretation Comments Total Protein (test code = Total 7.1 6.4-8.4 Protein) [facility] [employer] [id number] 07:54:00 Test Item Value Reference Range Interpretation Comments Globulin (test code = Globulin) 3.8 2.7-4.2 [facility] [employer] [id number] 07:54:00 Test Item Value Reference Range Interpretation Comments ALT (test code = ALT) 18 See_Comment [Auto mated message] The system which ge nerated this result transmit emerson reference range : <=65. The reference range was not used to interpr et this result as erinn l/abnormal. [facility] [employer] [id number] 07:54:00 Test Item Value Reference Range Interpretation Comments AST (test code = AST) 14 See_Comment [Auto mated message] The system which ge nerated this result transmit emerson reference range : <=37. The reference range was not used to interpr et this result as erinn l/abnormal. [facility]2018-07-08 07:54:00 Test Item Value Reference Range Interpretation Comments Alk Phos (test code = Alk Phos) 82 39-136 [facility]2018-07-08 07:54:00 Test Item Value Reference Range Interpretation Comments Bili Total (test code = Bili Total) 0.5 0.2-1.3 [facility]2018-07-08 07:54:00 Test Item Value Reference Range Interpretation Comments eGFR (test code = eGFR) 10 [facility]2018-07-08 07:54:00 Test Item Value Reference Range Interpretation Comments Potassium Lvl (test code = Potassium 3.2 3.5-5.1 Lvl) [facility]2018-07-08 07:54:00 Test Item Value Reference Range Interpretation Comments Chloride Lvl (test code = Chloride Lvl) 103 95-109 [facility]2018-07-08 07:54:00 Test Item Value Reference Range Interpretation Comments Glucose Lvl (test code = Glucose Lvl) 95 70-99 [facility]2018-07-08 07:54:00 Test Item Value Reference Range Interpretation Comments BUN (test code = BUN) 34 7-22 [facility]2018-07-08 07:54:00 Test Item Value Reference Range Interpretation Comments Creatinine Lvl (test code = Creatinine 5.83 0.50-1.40 Lvl) [facility]2018-07-08 07:54:00 Test Item Value Reference Range Interpretation Comments Sodium Lvl (test code = Sodium Lvl) 138 135-145 [facility]2018-07-08 07:54:00 Test Item Value Reference Range Interpretation Comments CO2 (test code = CO2) 23 24-32 [facility]2018-07-08 07:54:00 Test Item Value Reference Range Interpretation Comments AGAP (test code = AGAP) 15.2 10.0-20.0 [facility]2018-07-08 07:54:00 Test Item Value Reference Range Interpretation Comments Calcium Lvl (test code = Calcium Lvl) 8.5 8.5-10.5 [facility]2018-07-08 07:54:00 Test Item Value Reference Range Interpretation Comments Phosphorus (test code = Phosphorus) 4.2 2.5-4.5 [facility]SkegwzkSNDPGRWRMF1053-56-71 07:54:00 Test Item Value Reference Range Interpretation Comments Lymphocytes # (test code = Lymphocytes 1.5 1.0-5.5 #) [facility] CenterNzkjrksXAZRASJWPO3223-52-50 07:54:00 Test Item Value Reference Range Interpretation Comments Monocytes # (test code 0.5 See_Comment [Aut omated message] The = Monocytes #) system which generated this result tra nsmitted reference range : <=0.8. The reference r yared was not used to int erpret this result as normal/abnormal . [facility] CenterIbwgqjoMAANZMYZGE2749-23-16 07:54:00 Test Item Value Reference Range Interpretation Comments Basophils (test code = 1.0 See_Comment [Aut omated message] The Basophils) system which ge nerated this result tra nsmitted reference range : <=1.0. The reference r yared was not used to int erpret this result as normal/abnormal . [facility] CenterXgtkqjrYPTDUDUADA9529-32-90 07:54:00 Test Item Value Reference Range Interpretation Comments Segs-Bands # (test code = Segs-Bands #) 3.5 1.5-8.1 [facility] CenterOmvnjhoOWLKRIJKZK6145-59-10 07:54:00 Test Item Value Reference Range Interpretation Comments Basophils # (test code 0.1 See_Comment [Aut omated message] The = Basophils #) system which generated this result tra nsmitted reference range : <=0.2. The reference r yared was not used to int erpret this result as normal/abnormal . [facility] CenterFqlxcvhBZRAIKKPUJ2418-81-71 07:54:00 Test Item Value Reference Range Interpretation Comments Eosinophils # (test code 0.2 See_Comment [A utomated message] The = Eosinophils #) system whic h generated this result tra nsmitted reference range : <=0.5. The reference r yared was not used to int erpret this result as normal/abnormal . [facility] CenterGonjnvoVRFJZRMCSC5844-41-00 07:54:00 Test Item Value Reference Range Interpretation Comments Lymphocytes (test code = Lymphocytes) 26.7 20.0-40.0 [place] [address]-07-08 07:54:00 Test Item Value Reference Range Interpretation Comments Segs (test code = Segs) 61.0 45.0-75.0 [facility] CenterTkmjttvXRSDSPVYJU5922-92-81 07:54:00 Test Item Value Reference Range Interpretation Comments Monocytes (test code = Monocytes) 8.0 2.0-12.0 [facility] CenterPhgtyimEYSQJBXRDS9798-07-22 07:54:00 Test Item Value Reference Range Interpretation Comments Eosinophils (test code = 3.3 See_Comment [A utomated message] The Eosinophils) system which ge nerated this result tra nsmitted reference range : <=4.0. The reference r yared was not used to int erpret this result as normal/abnormal . [facility] CenterKruzayfTZIUNPTWAA5105-05-49 07:54:00 Test Item Value Reference Range Interpretation Comments WBC (test code = WBC) 5.7 3.7-10.4 [facility] CenterUtjjqsbYYNZECJUOO9180-15-39 07:54:00 Test Item Value Reference Range Interpretation Comments RBC (test code = RBC) 4.48 4.70-6.10 [facility] CenterLvkicikMSBYQZGRLO1216-09-95 07:54:00 Test Item Value Reference Range Interpretation Comments RDW (test code = RDW) 17.7 11.5-14.5 [facility] CenterKkmgkkmLKBFRTYEDM8735-57-92 07:54:00 Test Item Value Reference Range Interpretation Comments Platelet (test code = Platelet) 215 133-450 [facility] CenterCawihewDGYLYSWRQL9296-57-20 07:54:00 Test Item Value Reference Range Interpretation Comments MPV (test code = MPV) 7.2 7.4-10.4 [facility] CenterZkvjigoQQNPLPVXAR0977-74-55 07:54:00 Test Item Value Reference Range Interpretation Comments Hgb (test code = Hgb) 11.6 14.0-18.0 [facility] CenterHfqhovsXSINIGUYVC2127-05-49 07:54:00 Test Item Value Reference Range Interpretation Comments Hct (test code = Hct) 35.5 42.0-54.0 [facility] CenterQplqbyaFRPVGNUKUJ0215-16-27 07:54:00 Test Item Value Reference Range Interpretation Comments MCHC (test code = MCHC) 32.6 32.0-36.0 [facility] CenterKesouikBLSOLYHDPN6765-43-81 07:54:00 Test Item Value Reference Range Interpretation Comments MCV (test code = MCV) 79.2 80.0-94.0 [facility]EnaccbeIQKEBAEJLO9356-40-21 07:54:00 Test Item Value Reference Range Interpretation Comments MCH (test code = MCH) 25.8 pg 27.0-31.0 [facility]AINSTEC - [facility] RMJLAMV4802-10-39 07:54:00 Test Item Value Reference Range Interpretation Comments Troponin-I (test code 0.02 See_Comment [Auto mated message] The = Troponin-I) system which g enerated this result transmit emerson reference range : <=0.40. The reference r yared was not used to interpr et this result as erinn l/abnormal. [facility]Tripp[facility] CRCHPLQ6787-21-58 07:54:00 Test Item Value Reference Range Interpretation Comments Total CK (test code = Total CK) 31 12-191 [facility] [employer] [id number] 07:54:00 Test Item Value Reference Range Interpretation Comments Magnesium Lvl (test code = Magnesium 1.9 1.8-2.4 Lvl) [facility] [employer] [id number] 07:54:00 Test Item Value Reference Range Interpretation Comments B/C Ratio (test code = B/C Ratio) 6 1 6-25 [facility] [employer] [id number] 07:54:00 Test Item Value Reference Range Interpretation Comments Albumin Lvl (test code = Albumin Lvl) 3.3 3.5-5.0 [facility] [employer] [id number] 07:54:00 Test Item Value Reference Range Interpretation Comments A/G Ratio (test code = A/G Ratio) 0.9 1 0.7-1.6 [facility] [employer] [id number] 07:54:00 Test Item Value Reference Range Interpretation Comments Total Protein (test code = Total 7.1 6.4-8.4 Protein) [facility] [employer] [id number] 07:54:00 Test Item Value Reference Range Interpretation Comments Globulin (test code = Globulin) 3.8 2.7-4.2 [facility] [employer] [id number] 07:54:00 Test Item Value Reference Range Interpretation Comments ALT (test code = ALT) 18 See_Comment [Auto mated message] The system which ge nerated this result transmit emerson reference range : <=65. The reference range was not used to interpr et this result as erinn l/abnormal. [facility]2018-07-08 07:54:00 Test Item Value Reference Range Interpretation Comments AST (test code = AST) 14 See_Comment [Auto mated message] The system which ge nerated this result transmit emerson reference range : <=37. The reference range was not used to interpr et this result as erinn l/abnormal. [facility]2018-07-08 07:54:00 Test Item Value Reference Range Interpretation Comments Alk Phos (test code = Alk Phos) 82 39-136 [facility]2018-07-08 07:54:00 Test Item Value Reference Range Interpretation Comments Bili Total (test code = Bili Total) 0.5 0.2-1.3 [facility]2018-07-08 07:54:00 Test Item Value Reference Range Interpretation Comments eGFR (test code = eGFR) 10 [facility]2018-07-08 07:54:00 Test Item Value Reference Range Interpretation Comments Potassium Lvl (test code = Potassium 3.2 3.5-5.1 Lvl) [facility]2018-07-08 07:54:00 Test Item Value Reference Range Interpretation Comments Chloride Lvl (test code = Chloride Lvl) 103 95-109 [facility]2018-07-08 07:54:00 Test Item Value Reference Range Interpretation Comments Glucose Lvl (test code = Glucose Lvl) 95 70-99 [facility]2018-07-08 07:54:00 Test Item Value Reference Range Interpretation Comments BUN (test code = BUN) 34 7-22 [facility]2018-07-08 07:54:00 Test Item Value Reference Range Interpretation Comments Creatinine Lvl (test code = Creatinine 5.83 0.50-1.40 Lvl) [facility]2018-07-08 07:54:00 Test Item Value Reference Range Interpretation Comments Sodium Lvl (test code = Sodium Lvl) 138 135-145 [facility]2018-07-08 07:54:00 Test Item Value Reference Range Interpretation Comments CO2 (test code = CO2) 23 24-32 [facility]2018-07-08 07:54:00 Test Item Value Reference Range Interpretation Comments AGAP (test code = AGAP) 15.2 10.0-20.0 [facility]2018-07-08 07:54:00 Test Item Value Reference Range Interpretation Comments Calcium Lvl (test code = Calcium Lvl) 8.5 8.5-10.5 [facility]2018-07-08 07:54:00 Test Item Value Reference Range Interpretation Comments Phosphorus (test code = Phosphorus) 4.2 2.5-4.5 [facility] CenterIhtbquuTRTIZLQDDV6009-93-95 07:54:00 Test Item Value Reference Range Interpretation Comments Lymphocytes # (test code = Lymphocytes 1.5 1.0-5.5 #) [facility] CenterTinadinXVNKMRDPKO2219-81-78 07:54:00 Test Item Value Reference Range Interpretation Comments Monocytes # (test code 0.5 See_Comment [Aut omated message] The = Monocytes #) system which generated this result tra nsmitted reference range : <=0.8. The reference r yared was not used to int erpret this result as normal/abnormal . [facility] CenterDlmcqmpETCMLJKRFT3759-41-15 07:54:00 Test Item Value Reference Range Interpretation Comments Basophils (test code = 1.0 See_Comment [Aut omated message] The Basophils) system which ge nerated this result tra nsmitted reference range : <=1.0. The reference r yared was not used to int erpret this result as normal/abnormal . [facility] CenterNpwfumbQETLNMZZHQ3947-25-17 07:54:00 Test Item Value Reference Range Interpretation Comments Segs-Bands # (test code = Segs-Bands #) 3.5 1.5-8.1 [facility] CenterDmxkrmvTAFWCCWWPS1093-91-57 07:54:00 Test Item Value Reference Range Interpretation Comments Basophils # (test code 0.1 See_Comment [Aut omated message] The = Basophils #) system which generated this result tra nsmitted reference range : <=0.2. The reference r yared was not used to int erpret this result as normal/abnormal . [facility] CenterVkbdixaXFZEJSDDJP1189-93-16 07:54:00 Test Item Value Reference Range Interpretation Comments Eosinophils # (test code 0.2 See_Comment [A utomated message] The = Eosinophils #) system whic h generated this result tra nsmitted reference range : <=0.5. The reference r yared was not used to int erpret this result as normal/abnormal . [facility] CenterJtigbtjGVISUCGKEC2572-14-97 07:54:00 Test Item Value Reference Range Interpretation Comments Lymphocytes (test code = Lymphocytes) 26.7 20.0-40.0 [facility] CenterWawryreLLKXZRGJUN2695-64-10 07:54:00 Test Item Value Reference Range Interpretation Comments Segs (test code = Segs) 61.0 45.0-75.0 [facility] CenterSqsaevsOJKNJOZVFH8591-20-86 07:54:00 Test Item Value Reference Range Interpretation Comments Monocytes (test code = Monocytes) 8.0 2.0-12.0 [facility] CenterHuyihzoCKMHEJOHTW7191-27-26 07:54:00 Test Item Value Reference Range Interpretation Comments Eosinophils (test code = 3.3 See_Comment [A utomated message] The Eosinophils) system which ge nerated this result tra nsmitted reference range : <=4.0. The reference r yared was not used to int erpret this result as normal/abnormal . [facility] CenterVcwwwhoTERCDTDBNI7979-89-68 07:54:00 Test Item Value Reference Range Interpretation Comments WBC (test code = WBC) 5.7 3.7-10.4 [facility] CenterPfuothfEABZTSCOGM0773-67-18 07:54:00 Test Item Value Reference Range Interpretation Comments RBC (test code = RBC) 4.48 4.70-6.10 [facility] CenterSyeyaguPTYWGASZPL0291-44-07 07:54:00 Test Item Value Reference Range Interpretation Comments RDW (test code = RDW) 17.7 11.5-14.5 [facility] CenterLcwkpyfIVUHWTPMNH6226-85-73 07:54:00 Test Item Value Reference Range Interpretation Comments Platelet (test code = Platelet) 215 133-450 [facility] CenterPuvyqutTZFYBJLMVM6486-93-76 07:54:00 Test Item Value Reference Range Interpretation Comments MPV (test code = MPV) 7.2 7.4-10.4 [facility] CenterBcovzznJUIBPIBNIB2121-76-62 07:54:00 Test Item Value Reference Range Interpretation Comments Hgb (test code = Hgb) 11.6 14.0-18.0 [facility] CenterNypioyxSKITQIIKKU3843-37-33 07:54:00 Test Item Value Reference Range Interpretation Comments Hct (test code = Hct) 35.5 42.0-54.0 [facility] CenterDqpxygiCNLJVILEZY9279-67-95 07:54:00 Test Item Value Reference Range Interpretation Comments MCHC (test code = MCHC) 32.6 32.0-36.0 [facility] WondaqpSKQLUKYVBE3868-99-71 07:54:00 Test Item Value Reference Range Interpretation Comments MCV (test code = MCV) 79.2 80.0-94.0 [facility] HospitalMlzmshwFYRWYAECTC6999-36-33 07:54:00 Test Item Value Reference Range Interpretation Comments MCH (test code = MCH) 25.8 pg 27.0-31.0 [facility] [employer] [facility]2018-07-08 02:58:00 Test Item Value Reference Range Interpretation Comments Troponin-I (test code no gt See_Comment [Auto mated message] The = Troponin-I) system which g enerated this result transmit emerson reference range : <=0.40. The reference r yared was not used to interpr et this result as erinn l/abnormal. [facility] 02:58:00 Test Item Value Reference Range Interpretation Comments Troponin-I (test code no gt See_Comment [Auto mated message] The = Troponin-I) system which g enerated this result transmit emerson reference range : <=0.40. The reference r yared was not used to interpr et this result as erinn l/abnormal. [facility] [employer] [facility]2018-07-08 02:58:00 Test Item Value Reference Range Interpretation Comments Troponin-I (test code no gt See_Comment [Auto mated message] The = Troponin-I) system which g enerated this result transmit emerson reference range : <=0.40. The reference r yared was not used to interpr et this result as erinn l/abnormal. [facility] 02:58:00 Test Item Value Reference Range Interpretation Comments Troponin-I (test code no gt See_Comment [Auto mated message] The = Troponin-I) system which g enerated this result transmit emerson reference range : <=0.40. The reference r yared was not used to interpr et this result as erinn l/abnormal. [facility] 00:12:00 Test Item Value Reference Range Interpretation Comments proBNP (test code = 20729 See_Comment [Automa emerson message] The proBNP) system which ge nerated this result tra nsmitted reference range : <=125. The reference r yared was not used to int erpret this result as erinn l/abnormal. [facility] [employer] [id number] 00:12:00 Test Item Value Reference Range Interpretation Comments Total CK (test code = Total CK) 37 12-191 [facility] [employer] DHAQQOY8408-51-73 00:12:00 Test Item Value Reference Range Interpretation Comments CK MB (test code = CK MB) 1.0 0.5-3.6 [facility] MNQMUQM6722-70-81 00:12:00 Test Item Value Reference Range Interpretation Comments CK MB Index (test 2.7 1 See_Comment [Automate d message] The code = CK MB Index) system w [facility] generated this result transmit emerson reference range : <=2.5. The reference range was not used to interpr et this result as erinn l/abnormal. [facility] [employer] [id number] 00:12:00 Test Item Value Reference Range Interpretation Comments eGFR (test code = eGFR) 12 [facility] [employer] [id number] 00:12:00 Test Item Value Reference Range Interpretation Comments Alk Phos (test code = Alk Phos) 88 39-136 [facility] [employer] [id number] 00:12:00 Test Item Value Reference Range Interpretation Comments AST (test code = AST) 14 See_Comment [Auto mated message] The system which ge nerated this result transmit emerson reference range : <=37. The reference range was not used to interpr et this result as erinn l/abnormal. [facility] [employer] [id number] 00:12:00 Test Item Value Reference Range Interpretation Comments Total Protein (test code = Total 7.4 6.4-8.4 Protein) [facility] [employer] [id number] 00:12:00 Test Item Value Reference Range Interpretation Comments Bili Total (test code = Bili Total) 0.5 0.2-1.3 [facility] [employer] [id number] 00:12:00 Test Item Value Reference Range Interpretation Comments ALT (test code = ALT) 17 See_Comment [Auto mated message] The system which ge nerated this result transmit emerson reference range : <=65. The reference range was not used to interpr et this result as erinn l/abnormal. [facility]2018-07-08 00:12:00 Test Item Value Reference Range Interpretation Comments Albumin Lvl (test code = Albumin Lvl) 3.2 3.5-5.0 [facility]2018-07-08 00:12:00 Test Item Value Reference Range Interpretation Comments Calcium Lvl (test code = Calcium Lvl) 8.1 8.5-10.5 [facility]2018-07-08 00:12:00 Test Item Value Reference Range Interpretation Comments Sodium Lvl (test code = Sodium Lvl) 137 135-145 [facility]2018-07-08 00:12:00 Test Item Value Reference Range Interpretation Comments CO2 (test code = CO2) 26 24-32 [facility]2018-07-08 00:12:00 Test Item Value Reference Range Interpretation Comments Creatinine Lvl (test code = Creatinine 4.94 0.50-1.40 Lvl) [facility]2018-07-08 00:12:00 Test Item Value Reference Range Interpretation Comments BUN (test code = BUN) 24 7-22 [facility]2018-07-08 00:12:00 Test Item Value Reference Range Interpretation Comments Glucose Lvl (test code = Glucose Lvl) 156 70-99 [facility]2018-07-08 00:12:00 Test Item Value Reference Range Interpretation Comments B/C Ratio (test code = B/C Ratio) 5 1 6-25 [facility]2018-07-08 00:12:00 Test Item Value Reference Range Interpretation Comments AGAP (test code = AGAP) 12.3 10.0-20.0 [facility]2018-07-08 00:12:00 Test Item Value Reference Range Interpretation Comments A/G Ratio (test code = A/G Ratio) 0.8 1 0.7-1.6 [facility]2018-07-08 00:12:00 Test Item Value Reference Range Interpretation Comments Globulin (test code = Globulin) 4.2 2.7-4.2 [facility]2018-07-08 00:12:00 Test Item Value Reference Range Interpretation Comments Chloride Lvl (test code = Chloride Lvl) 102 95-109 [facility]2018-07-08 00:12:00 Test Item Value Reference Range Interpretation Comments Potassium Lvl (test code = Potassium 3.3 3.5-5.1 Lvl) [facility] CenterCtbfineWPMSXPDNGN9300-93-68 00:12:00 Test Item Value Reference Range Interpretation Comments WBC (test code = WBC) 5.0 3.7-10.4 [facility] CenterQhrxjquZJQDMADUWA4631-90-65 00:12:00 Test Item Value Reference Range Interpretation Comments RDW (test code = RDW) 17.6 11.5-14.5 [facility] CenterZedgevfFJPFCMJDOT7446-07-37 00:12:00 Test Item Value Reference Range Interpretation Comments MCHC (test code = MCHC) 33.5 32.0-36.0 [facility] CenterXnovprxRVDSEQRZLX2159-92-45 00:12:00 Test Item Value Reference Range Interpretation Comments MPV (test code = MPV) 7.3 7.4-10.4 [facility] CenterTyqmujhZVHYUZZTWV4005-45-28 00:12:00 Test Item Value Reference Range Interpretation Comments RBC (test code = RBC) 4.25 4.70-6.10 [facility] CenterZoormbjQMITAFSWGM9600-95-94 00:12:00 Test Item Value Reference Range Interpretation Comments MCH (test code = MCH) 26.0 pg 27.0-31.0 [facility] CenterCepzliuOFQTVSVDFK1247-83-25 00:12:00 Test Item Value Reference Range Interpretation Comments MCV (test code = MCV) 77.5 80.0-94.0 [facility] CenterIaqjghmNZTCXAHOKX3730-32-98 00:12:00 Test Item Value Reference Range Interpretation Comments Hct (test code = Hct) 33.0 42.0-54.0 [facility] CenterKfvsescPGRKEUOPVT5074-40-93 00:12:00 Test Item Value Reference Range Interpretation Comments Hgb (test code = Hgb) 11.1 14.0-18.0 [facility] CenterMbsjuvfQQDVKZMJIF0548-77-39 00:12:00 Test Item Value Reference Range Interpretation Comments Platelet (test code = Platelet) 208 133-450 [facility] CenterEnvfnyiXRXDBAEWGN5258-98-40 00:12:00 Test Item Value Reference Range Interpretation Comments Segs-Bands # (test code = Segs-Bands #) 3.6 1.5-8.1 [facility] CenterXzuwtjpXZWEMFDLKD6782-09-72 00:12:00 Test Item Value Reference Range Interpretation Comments Lymphocytes # (test code = Lymphocytes 0.9 1.0-5.5 #) [facility] CenterVxbkqpuSCXDKTARYH7346-27-33 00:12:00 Test Item Value Reference Range Interpretation Comments Basophils # (test code 0.1 See_Comment [Aut omated message] The = Basophils #) system which generated this result tra nsmitted reference range : <=0.2. The reference r yared was not used to int erpret this result as normal/abnormal . [facility] CenterZnfdsgjUWTCXGZAHX0188-71-58 00:12:00 Test Item Value Reference Range Interpretation Comments Eosinophils # (test code 0.1 See_Comment [A utomated message] The = Eosinophils #) system whic h generated this result tra nsmitted reference range : <=0.5. The reference r yared was not used to int erpret this result as normal/abnormal . [facility] CenterYjjvepxVPAMTOGJRD8877-05-01 00:12:00 Test Item Value Reference Range Interpretation Comments Monocytes # (test code 0.4 See_Comment [Aut omated message] The = Monocytes #) system which generated this result tra nsmitted reference range : <=0.8. The reference r yared was not used to int erpret this result as normal/abnormal . [facility] CenterHavpqjoXWQLLDTWUD2586-02-19 00:12:00 Test Item Value Reference Range Interpretation Comments Basophils (test code = 1.0 See_Comment [Aut omated message] The Basophils) system which ge nerated this result tra nsmitted reference range : <=1.0. The reference r yared was not used to int erpret this result as normal/abnormal . [facility] CenterFwerprmVIQMTPAMKC1277-74-57 00:12:00 Test Item Value Reference Range Interpretation Comments Eosinophils (test code = 2.0 See_Comment [A utomated message] The Eosinophils) system which ge nerated this result tra nsmitted reference range : <=4.0. The reference r yared was not used to int erpret this result as normal/abnormal . [facility] CenterAhxnmvsCRGIKPWJOS4409-02-17 00:12:00 Test Item Value Reference Range Interpretation Comments Microcyte (test code = 1+ *ABN*(04/14/18 7:12 Microcyte) PM) [facility] CenterHbrstgnSBZTZOVMLI1472-88-59 00:12:00 Test Item Value Reference Range Interpretation Comments Plt Morph (test code = Normal (04/14/18 7:12 PM) Plt Morph) [facility]YfsqmnfIFVSYKSOTG2125-00-85 00:12:00 Test Item Value Reference Range Interpretation Comments Lymphocytes (test code = Lymphocytes) 17.2 20.0-40.0 [facility] HospitalEtxttbmMEBZANQAHR7550-90-07 00:12:00 Test Item Value Reference Range Interpretation Comments Segs (test code = Segs) 72.3 45.0-75.0 [facility] HospitalUwxqjnvPFQMJKXTYV1977-20-11 00:12:00 Test Item Value Reference Range Interpretation Comments Monocytes (test code = Monocytes) 7.5 2.0-12.0 [facility] HospitalCourseloadCARJauntAC BVBJIKR6868-75-03 00:12:00 Test Item Value Reference Range Interpretation Comments proBNP (test code = 60735 See_Comment [Automa emerson message] The proBNP) system which ge nerated this result tra nsmitted reference range : <=125. The reference r yared was not used to int erpret this result as erinn l/abnormal. [facility] HospitalGeelbe RPWWXQK9709-58-79 00:12:00 Test Item Value Reference Range Interpretation Comments Total CK (test code = Total CK) 37 12-191 [facility] HospitalTrippifiAC FVSVKTM7404-54-32 00:12:00 Test Item Value Reference Range Interpretation Comments CK MB (test code = CK MB) 1.0 0.5-3.6 [facility] HospitalGeelbe UQLZJCH3379-85-88 00:12:00 Test Item Value Reference Range Interpretation Comments CK MB Index (test 2.7 1 See_Comment [Automate d message] The code = CK MB Index) system w [facility] generated this result transmit emerson reference range : <=2.5. The reference range was not used to interpr et this result as erinn l/abnormal. [facility] [employer] [id number] 00:12:00 Test Item Value Reference Range Interpretation Comments eGFR (test code = eGFR) 12 [facility] [employer] [id number] 00:12:00 Test Item Value Reference Range Interpretation Comments Alk Phos (test code = Alk Phos) 88 39-136 [facility] [employer] LYIBI5815-92-92 00:12:00 Test Item Value Reference Range Interpretation Comments AST (test code = AST) 14 See_Comment [Auto mated message] The system which ge nerated this result transmit emerson reference range : <=37. The reference range was not used to interpr et this result as erinn l/abnormal. [facility]2018-07-08 00:12:00 Test Item Value Reference Range Interpretation Comments Total Protein (test code = Total 7.4 6.4-8.4 Protein) [facility]2018-07-08 00:12:00 Test Item Value Reference Range Interpretation Comments Bili Total (test code = Bili Total) 0.5 0.2-1.3 [facility]2018-07-08 00:12:00 Test Item Value Reference Range Interpretation Comments ALT (test code = ALT) 17 See_Comment [Auto mated message] The system which ge nerated this result transmit emerson reference range : <=65. The reference range was not used to interpr et this result as erinn l/abnormal. [facility]2018-07-08 00:12:00 Test Item Value Reference Range Interpretation Comments Albumin Lvl (test code = Albumin Lvl) 3.2 3.5-5.0 [facility]2018-07-08 00:12:00 Test Item Value Reference Range Interpretation Comments Calcium Lvl (test code = Calcium Lvl) 8.1 8.5-10.5 [facility]2018-07-08 00:12:00 Test Item Value Reference Range Interpretation Comments Sodium Lvl (test code = Sodium Lvl) 137 135-145 [facility]2018-07-08 00:12:00 Test Item Value Reference Range Interpretation Comments CO2 (test code = CO2) 26 24-32 [facility]2018-07-08 00:12:00 Test Item Value Reference Range Interpretation Comments Creatinine Lvl (test code = Creatinine 4.94 0.50-1.40 Lvl) [facility]2018-07-08 00:12:00 Test Item Value Reference Range Interpretation Comments BUN (test code = BUN) 24 7-22 [facility]2018-07-08 00:12:00 Test Item Value Reference Range Interpretation Comments Glucose Lvl (test code = Glucose Lvl) 156 70-99 [facility]2018-07-08 00:12:00 Test Item Value Reference Range Interpretation Comments B/C Ratio (test code = B/C Ratio) 5 1 6-25 [facility]2018-07-08 00:12:00 Test Item Value Reference Range Interpretation Comments AGAP (test code = AGAP) 12.3 10.0-20.0 [facility]2018-07-08 00:12:00 Test Item Value Reference Range Interpretation Comments A/G Ratio (test code = A/G Ratio) 0.8 1 0.7-1.6 [facility]2018-07-08 00:12:00 Test Item Value Reference Range Interpretation Comments Globulin (test code = Globulin) 4.2 2.7-4.2 [facility]2018-07-08 00:12:00 Test Item Value Reference Range Interpretation Comments Chloride Lvl (test code = Chloride Lvl) 102 95-109 [facility]2018-07-08 00:12:00 Test Item Value Reference Range Interpretation Comments Potassium Lvl (test code = Potassium 3.3 3.5-5.1 Lvl) [facility] CenterHrfuqcpYIDTJYYQEN5249-51-54 00:12:00 Test Item Value Reference Range Interpretation Comments WBC (test code = WBC) 5.0 3.7-10.4 [facility] CenterVcugougRBHRVAUXWU8471-06-38 00:12:00 Test Item Value Reference Range Interpretation Comments RDW (test code = RDW) 17.6 11.5-14.5 [facility] CenterGgcppptDUGTUFZTTQ5699-47-04 00:12:00 Test Item Value Reference Range Interpretation Comments MCHC (test code = MCHC) 33.5 32.0-36.0 [facility] CenterSatwgubWVLXMXJBLM1928-47-58 00:12:00 Test Item Value Reference Range Interpretation Comments MPV (test code = MPV) 7.3 7.4-10.4 [facility] CenterUwpanxtYYNYTNLMOT8750-82-07 00:12:00 Test Item Value Reference Range Interpretation Comments RBC (test code = RBC) 4.25 4.70-6.10 [facility] CenterNhmwxnySGQAJEMSID5055-77-85 00:12:00 Test Item Value Reference Range Interpretation Comments MCH (test code = MCH) 26.0 pg 27.0-31.0 [facility] CenterNoyivvaIHAUIKNTMW3956-67-40 00:12:00 Test Item Value Reference Range Interpretation Comments MCV (test code = MCV) 77.5 80.0-94.0 [facility] CenterSraoyniQGDHXERCPP0769-13-67 00:12:00 Test Item Value Reference Range Interpretation Comments Hct (test code = Hct) 33.0 42.0-54.0 [facility] CenterSpzrtsoCZQCMLHEZS0809-88-77 00:12:00 Test Item Value Reference Range Interpretation Comments Hgb (test code = Hgb) 11.1 14.0-18.0 [facility] CenterNkaczohDNODEOZZXM1777-04-69 00:12:00 Test Item Value Reference Range Interpretation Comments Platelet (test code = Platelet) 208 133-450 [facility] CenterIyjrtupGRPJBPRRYY2722-12-12 00:12:00 Test Item Value Reference Range Interpretation Comments Segs-Bands # (test code = Segs-Bands #) 3.6 1.5-8.1 [facility] CenterMimwocrNFTRDSYBBS9712-58-53 00:12:00 Test Item Value Reference Range Interpretation Comments Lymphocytes # (test code = Lymphocytes 0.9 1.0-5.5 #) [facility] CenterIjmxysdJJUSRVLHPB5806-41-62 00:12:00 Test Item Value Reference Range Interpretation Comments Basophils # (test code 0.1 See_Comment [Aut omated message] The = Basophils #) system which generated this result tra nsmitted reference range : <=0.2. The reference r yared was not used to int erpret this result as normal/abnormal . [facility] CenterKjtuyeaAJXDGOHBJV6203-68-04 00:12:00 Test Item Value Reference Range Interpretation Comments Eosinophils # (test code 0.1 See_Comment [A utomated message] The = Eosinophils #) system whic h generated this result tra nsmitted reference range : <=0.5. The reference r yared was not used to int erpret this result as normal/abnormal . [facility] CenterLlyykimYIUJRHGBKX2979-92-53 00:12:00 Test Item Value Reference Range Interpretation Comments Monocytes # (test code 0.4 See_Comment [Aut omated message] The = Monocytes #) system which generated this result tra nsmitted reference range : <=0.8. The reference r yared was not used to int erpret this result as normal/abnormal . [facility] CenterLmkwiaxBJLIBXUCAL0866-21-00 00:12:00 Test Item Value Reference Range Interpretation Comments Basophils (test code = 1.0 See_Comment [Aut omated message] The Basophils) system which ge nerated this result tra nsmitted reference range : <=1.0. The reference r yared was not used to int erpret this result as normal/abnormal . [facility] HospitalSksynmmZNSZJMHDMS0479-87-47 00:12:00 Test Item Value Reference Range Interpretation Comments Eosinophils (test code = 2.0 See_Comment [A utomated message] The Eosinophils) system which ge nerated this result tra nsmitted reference range : <=4.0. The reference r yared was not used to int erpret this result as normal/abnormal . [facility] HospitalGzivqepJTGLCPSFOS0005-07-84 00:12:00 Test Item Value Reference Range Interpretation Comments Microcyte (test code = 1+ *ABN*(04/14/18 7:12 Microcyte) PM) [facility] HospitalWljrjliTSCNUXGNLN8674-17-73 00:12:00 Test Item Value Reference Range Interpretation Comments Plt Morph (test code = Normal (04/14/18 7:12 PM) Plt Morph) [facility] HospitalXppxtbpSRJZKKGKQT8491-50-19 00:12:00 Test Item Value Reference Range Interpretation Comments Lymphocytes (test code = Lymphocytes) 17.2 20.0-40.0 [facility] HospitalIsfjfnoPHITGANGXS9909-67-13 00:12:00 Test Item Value Reference Range Interpretation Comments Segs (test code = Segs) 72.3 45.0-75.0 [facility] HospitalRwdsqdaFRXFTIKIXA3273-27-99 00:12:00 Test Item Value Reference Range Interpretation Comments Monocytes (test code = Monocytes) 7.5 2.0-12.0 [facility]PremiseNJKCIXR9032-10-83 00:12:00 Test Item Value Reference Range Interpretation Comments proBNP (test code = 60858 See_Comment [Automa emerson message] The proBNP) system which ge nerated this result tra nsmitted reference range : <=125. The reference r yared was not used to int erpret this result as erinn l/abnormal. [facility] HospitalCardFlight2018-[facility] 00:12:00 Test Item Value Reference Range Interpretation Comments Total CK (test code = Total CK) 37 12-191 [facility]Geelbe KJAUVTQ4101-40-71 00:12:00 Test Item Value Reference Range Interpretation Comments CK MB (test code = CK MB) 1.0 0.5-3.6 [facility] HospitalannCARDIAC XDTAIPU8058-47-63 00:12:00 Test Item Value Reference Range Interpretation Comments CK MB Index (test 2.7 1 See_Comment [Automate d message] The code = CK MB Index) system w [employer] generated this result transmit emerson reference range : <=2.5. The reference range was not used to interpr et this result as erinn l/abnormal. [facility] HospitalPeeP [employer] [id number] 00:12:00 Test Item Value Reference Range Interpretation Comments eGFR (test code = eGFR) 12 [facility]PeeP [facility] [id number] 00:12:00 Test Item Value Reference Range Interpretation Comments Alk Phos (test code = Alk Phos) 88 39-136 [facility]Pee[facility] [id number] 00:12:00 Test Item Value Reference Range Interpretation Comments AST (test code = AST) 14 See_Comment [Auto mated message] The system which ge nerated this result transmit emerson reference range : <=37. The reference range was not used to interpr et this result as erinn l/abnormal. [facility] HospitalPeeP [facility] Digital [id number] 00:12:00 Test Item Value Reference Range Interpretation Comments Total Protein (test code = Total 7.4 6.4-8.4 Protein) [facility] [id number] 00:12:00 Test Item Value Reference Range Interpretation Comments Bili Total (test code = Bili Total) 0.5 0.2-1.3 [facility] LWKDI0398-51-11 00:12:00 Test Item Value Reference Range Interpretation Comments ALT (test code = ALT) 17 See_Comment [Auto mated message] The system which ge nerated this result transmit emerson reference range : <=65. The reference range was not used to interpr et this result as erinn l/abnormal. [facility] HospitalPeeP [facility] [id number] 00:12:00 Test Item Value Reference Range Interpretation Comments Albumin Lvl (test code = Albumin Lvl) 3.2 3.5-5.0 [facility] HospitalYourListen.com CUHUX2999-28-96 00:12:00 Test Item Value Reference Range Interpretation Comments Calcium Lvl (test code = Calcium Lvl) 8.1 8.5-10.5 [facility]2018-07-08 00:12:00 Test Item Value Reference Range Interpretation Comments Sodium Lvl (test code = Sodium Lvl) 137 135-145 [facility]2018-07-08 00:12:00 Test Item Value Reference Range Interpretation Comments CO2 (test code = CO2) 26 24-32 [facility]2018-07-08 00:12:00 Test Item Value Reference Range Interpretation Comments Creatinine Lvl (test code = Creatinine 4.94 0.50-1.40 Lvl) [facility]2018-07-08 00:12:00 Test Item Value Reference Range Interpretation Comments BUN (test code = BUN) 24 7-22 [facility]2018-07-08 00:12:00 Test Item Value Reference Range Interpretation Comments Glucose Lvl (test code = Glucose Lvl) 156 70-99 [facility]2018-07-08 00:12:00 Test Item Value Reference Range Interpretation Comments B/C Ratio (test code = B/C Ratio) 5 1 6-25 [facility]2018-07-08 00:12:00 Test Item Value Reference Range Interpretation Comments AGAP (test code = AGAP) 12.3 10.0-20.0 [facility]2018-07-08 00:12:00 Test Item Value Reference Range Interpretation Comments A/G Ratio (test code = A/G Ratio) 0.8 1 0.7-1.6 [facility]2018-07-08 00:12:00 Test Item Value Reference Range Interpretation Comments Globulin (test code = Globulin) 4.2 2.7-4.2 [facility]2018-07-08 00:12:00 Test Item Value Reference Range Interpretation Comments Chloride Lvl (test code = Chloride Lvl) 102 95-109 [facility]2018-07-08 00:12:00 Test Item Value Reference Range Interpretation Comments Potassium Lvl (test code = Potassium 3.3 3.5-5.1 Lvl) [facility] CenterQblcnjnDQPKFIVWZR4851-53-18 00:12:00 Test Item Value Reference Range Interpretation Comments WBC (test code = WBC) 5.0 3.7-10.4 [facility] CenterMcexxwaLTJSDENONP1302-52-03 00:12:00 Test Item Value Reference Range Interpretation Comments RDW (test code = RDW) 17.6 11.5-14.5 [facility] CenterWjfnenpEVNKFNRLYU1829-78-91 00:12:00 Test Item Value Reference Range Interpretation Comments MCHC (test code = MCHC) 33.5 32.0-36.0 [facility] CenterTeljqbgCZPMGTBKEW9297-59-60 00:12:00 Test Item Value Reference Range Interpretation Comments MPV (test code = MPV) 7.3 7.4-10.4 [facility] CenterAcyvwduKBYXIBRRSY1468-62-89 00:12:00 Test Item Value Reference Range Interpretation Comments RBC (test code = RBC) 4.25 4.70-6.10 [facility] CenterGfpdyruIWHEJNAUZT5783-05-72 00:12:00 Test Item Value Reference Range Interpretation Comments MCH (test code = MCH) 26.0 pg 27.0-31.0 [facility] CenterJpxdwhhVYBHOCPDOB1082-96-31 00:12:00 Test Item Value Reference Range Interpretation Comments MCV (test code = MCV) 77.5 80.0-94.0 [facility] CenterYfyoorgSBXYQNNSXT8745-60-28 00:12:00 Test Item Value Reference Range Interpretation Comments Hct (test code = Hct) 33.0 42.0-54.0 [facility] CenterHzjetpfOFCVNZXFYJ5430-59-19 00:12:00 Test Item Value Reference Range Interpretation Comments Hgb (test code = Hgb) 11.1 14.0-18.0 [facility] CenterWtgfyjhGHDEIWCYUH5742-91-11 00:12:00 Test Item Value Reference Range Interpretation Comments Platelet (test code = Platelet) 208 133-450 [facility] CenterSnwxxweIMRGRDEUPW2883-66-93 00:12:00 Test Item Value Reference Range Interpretation Comments Segs-Bands # (test code = Segs-Bands #) 3.6 1.5-8.1 [facility] CenterSgqojfdOETQJLWSVS3964-62-35 00:12:00 Test Item Value Reference Range Interpretation Comments Lymphocytes # (test code = Lymphocytes 0.9 1.0-5.5 #) [facility] CenterUrqhblyQNKDOPIXJU1537-61-40 00:12:00 Test Item Value Reference Range Interpretation Comments Basophils # (test code 0.1 See_Comment [Aut omated message] The = Basophils #) system which generated this result tra nsmitted reference range : <=0.2. The reference r yared was not used to int erpret this result as normal/abnormal . [facility] CenterSufdhryROQBXJQTVU8161-59-16 00:12:00 Test Item Value Reference Range Interpretation Comments Eosinophils # (test code 0.1 See_Comment [A utomated message] The = Eosinophils #) system whic h generated this result tra nsmitted reference range : <=0.5. The reference r yared was not used to int erpret this result as normal/abnormal . [facility] CenterJcnkomeCRTBOJZXCX9938-20-82 00:12:00 Test Item Value Reference Range Interpretation Comments Monocytes # (test code 0.4 See_Comment [Aut omated message] The = Monocytes #) system which generated this result tra nsmitted reference range : <=0.8. The reference r ayred was not used to int erpret this result as normal/abnormal . [facility] CenterIgydfvdEMOTPRPSHG4860-48-64 00:12:00 Test Item Value Reference Range Interpretation Comments Basophils (test code = 1.0 See_Comment [Aut omated message] The Basophils) system which ge nerated this result tra nsmitted reference range : <=1.0. The reference r yared was not used to int erpret this result as normal/abnormal . [facility] CenterCaperybJBJQRFMZRK4975-87-25 00:12:00 Test Item Value Reference Range Interpretation Comments Eosinophils (test code = 2.0 See_Comment [A utomated message] The Eosinophils) system which ge nerated this result tra nsmitted reference range : <=4.0. The reference r yared was not used to int erpret this result as normal/abnormal . [facility] CenterWawbonwGEBYUBQQYP2908-39-98 00:12:00 Test Item Value Reference Range Interpretation Comments Microcyte (test code = 1+ *ABN*(04/14/18 7:12 Microcyte) PM) [facility] CenterYcyvbkyILZHEOUIML2098-57-48 00:12:00 Test Item Value Reference Range Interpretation Comments Plt Morph (test code = Normal (04/14/18 7:12 PM) Plt Morph) [facility] CenterBbqbohuAYXTEYYPXZ3920-34-37 00:12:00 Test Item Value Reference Range Interpretation Comments Lymphocytes (test code = Lymphocytes) 17.2 20.0-40.0 [facility] CenterZgzobeeYVCHMDZXUD1747-52-87 00:12:00 Test Item Value Reference Range Interpretation Comments Segs (test code = Segs) 72.3 45.0-75.0 [facility] UiaxxecJWJIXOWVAX5375-30-09 00:12:00 Test Item Value Reference Range Interpretation Comments Monocytes (test code = Monocytes) 7.5 2.0-12.0 [facility] PLECMKL6374-43-04 00:12:00 Test Item Value Reference Range Interpretation Comments proBNP (test code = 76170 See_Comment [Automa emerson message] The proBNP) system which ge nerated this result tra nsmitted reference range : <=125. The reference r yared was not used to int erpret this result as erinn l/abnormal. [facility] [employer] SUCZLGW2010-11-31 00:12:00 Test Item Value Reference Range Interpretation Comments Total CK (test code = Total CK) 37 12-191 [facility] [employer] UDTQUTN0530-78-22 00:12:00 Test Item Value Reference Range Interpretation Comments CK MB (test code = CK MB) 1.0 0.5-3.6 [facility] [employer] [id number] 00:12:00 Test Item Value Reference Range Interpretation Comments CK MB Index (test 2.7 1 See_Comment [Automate d message] The code = CK MB Index) system w [facility] generated this result transmit emerson reference range : <=2.5. The reference range was not used to interpr et this result as erinn l/abnormal. [employer] BDIXN1806-10-11 00:12:00 Test Item Value Reference Range Interpretation Comments eGFR (test code = eGFR) 12 [facility] [employer] [id number] 00:12:00 Test Item Value Reference Range Interpretation Comments Alk Phos (test code = Alk Phos) 88 39-136 [facility] [employer] [id number] 00:12:00 Test Item Value Reference Range Interpretation Comments AST (test code = AST) 14 See_Comment [Auto mated message] The system which ge nerated this result transmit emerson reference range : <=37. The reference range was not used to interpr et this result as erinn l/abnormal. [employer] SEREW7813-02-14 00:12:00 Test Item Value Reference Range Interpretation Comments Total Protein (test code = Total 7.4 6.4-8.4 Protein) [facility]2018-07-08 00:12:00 Test Item Value Reference Range Interpretation Comments Bili Total (test code = Bili Total) 0.5 0.2-1.3 [facility]2018-07-08 00:12:00 Test Item Value Reference Range Interpretation Comments ALT (test code = ALT) 17 See_Comment [Auto mated message] The system which ge nerated this result transmit emerson reference range : <=65. The reference range was not used to interpr et this result as erinn l/abnormal. [facility]2018-07-08 00:12:00 Test Item Value Reference Range Interpretation Comments Albumin Lvl (test code = Albumin Lvl) 3.2 3.5-5.0 [facility]2018-07-08 00:12:00 Test Item Value Reference Range Interpretation Comments Calcium Lvl (test code = Calcium Lvl) 8.1 8.5-10.5 [facility]2018-07-08 00:12:00 Test Item Value Reference Range Interpretation Comments Sodium Lvl (test code = Sodium Lvl) 137 135-145 [facility]2018-07-08 00:12:00 Test Item Value Reference Range Interpretation Comments CO2 (test code = CO2) 26 24-32 [facility]2018-07-08 00:12:00 Test Item Value Reference Range Interpretation Comments Creatinine Lvl (test code = Creatinine 4.94 0.50-1.40 Lvl) [facility] [facility]00 Test Item Value Reference Range Interpretation Comments BUN (test code = BUN) 24 7-22 [facility]2018-07-08 00:12:00 Test Item Value Reference Range Interpretation Comments Glucose Lvl (test code = Glucose Lvl) 156 70-99 [facility]2018-07-08 00:12:00 Test Item Value Reference Range Interpretation Comments B/C Ratio (test code = B/C Ratio) 5 1 6-25 [facility]2018-07-08 00:12:00 Test Item Value Reference Range Interpretation Comments AGAP (test code = AGAP) 12.3 10.0-20.0 [facility]2018-07-08 00:12:00 Test Item Value Reference Range Interpretation Comments A/G Ratio (test code = A/G Ratio) 0.8 1 0.7-1.6 [facility]2018-07-08 00:12:00 Test Item Value Reference Range Interpretation Comments Globulin (test code = Globulin) 4.2 2.7-4.2 [facility]2018-07-08 00:12:00 Test Item Value Reference Range Interpretation Comments Chloride Lvl (test code = Chloride Lvl) 102 95-109 [facility]2018-07-08 00:12:00 Test Item Value Reference Range Interpretation Comments Potassium Lvl (test code = Potassium 3.3 3.5-5.1 Lvl) [facility]SqshigfOLWFLFHWMD8991-88-56 00:12:00 Test Item Value Reference Range Interpretation Comments WBC (test code = WBC) 5.0 3.7-10.4 [facility] CenterTqzsbwzNWURSSPAUD4208-30-18 00:12:00 Test Item Value Reference Range Interpretation Comments RDW (test code = RDW) 17.6 11.5-14.5 [facility] CenterXqyxxqlENGSANDDHQ6463-95-18 00:12:00 Test Item Value Reference Range Interpretation Comments MCHC (test code = MCHC) 33.5 32.0-36.0 [facility] CenterJgsnhoeFSFXSVVGAZ2733-26-67 00:12:00 Test Item Value Reference Range Interpretation Comments MPV (test code = MPV) 7.3 7.4-10.4 [facility] CenterCsgwzueMSLHUGLTWJ1043-01-69 00:12:00 Test Item Value Reference Range Interpretation Comments RBC (test code = RBC) 4.25 4.70-6.10 [facility] CenterUpjdblfBYMXPFIMSS5883-06-42 00:12:00 Test Item Value Reference Range Interpretation Comments MCH (test code = MCH) 26.0 pg 27.0-31.0 [facility] CenterTejpvdxNMJTBXSHKZ2445-75-00 00:12:00 Test Item Value Reference Range Interpretation Comments MCV (test code = MCV) 77.5 80.0-94.0 [facility] CenterGpkifxpPTLKVCZIRB7457-02-22 00:12:00 Test Item Value Reference Range Interpretation Comments Hct (test code = Hct) 33.0 42.0-54.0 [facility] CenterXfacnukXCJPQBCDQC9365-97-31 00:12:00 Test Item Value Reference Range Interpretation Comments Hgb (test code = Hgb) 11.1 14.0-18.0 [facility] CenterGyvzvcrYRLLLPUGOK7108-77-27 00:12:00 Test Item Value Reference Range Interpretation Comments Platelet (test code = Platelet) 208 133-450 [facility] CenterAcvvyemWMAIFSPNQO8255-84-24 00:12:00 Test Item Value Reference Range Interpretation Comments Segs-Bands # (test code = Segs-Bands #) 3.6 1.5-8.1 [facility] CenterNzumjmjGASIWEPPXF6628-19-97 00:12:00 Test Item Value Reference Range Interpretation Comments Lymphocytes # (test code = Lymphocytes 0.9 1.0-5.5 #) [facility] CenterLaeeeavTIGBVCBIND2619-08-17 00:12:00 Test Item Value Reference Range Interpretation Comments Basophils # (test code 0.1 See_Comment [Aut omated message] The = Basophils #) system which generated this result tra nsmitted reference range : <=0.2. The reference r yared was not used to int erpret this result as normal/abnormal . [facility] CenterVecxftjHTYECTVXQU7320-83-94 00:12:00 Test Item Value Reference Range Interpretation Comments Eosinophils # (test code 0.1 See_Comment [A utomated message] The = Eosinophils #) system whic h generated this result tra nsmitted reference range : <=0.5. The reference r yared was not used to int erpret this result as normal/abnormal . [facility] CenterAqviuryJRWJNKXTKA3272-75-37 00:12:00 Test Item Value Reference Range Interpretation Comments Monocytes # (test code 0.4 See_Comment [Aut omated message] The = Monocytes #) system which generated this result tra nsmitted reference range : <=0.8. The reference r yared was not used to int erpret this result as normal/abnormal . [facility] CenterEwmrnwiVFNDLMGTVV5232-12-65 00:12:00 Test Item Value Reference Range Interpretation Comments Basophils (test code = 1.0 See_Comment [Aut omated message] The Basophils) system which ge nerated this result tra nsmitted reference range : <=1.0. The reference r yared was not used to int erpret this result as normal/abnormal . [facility] CenterAjkoqpuREJHWMMQUG1616-60-69 00:12:00 Test Item Value Reference Range Interpretation Comments Eosinophils (test code = 2.0 See_Comment [A utomated message] The Eosinophils) system which ge nerated this result tra nsmitted reference range : <=4.0. The reference r yared was not used to int erpret this result as normal/abnormal . [facility] CenterRewiqkmMGRUBLGIAM1661-30-84 00:12:00 Test Item Value Reference Range Interpretation Comments Microcyte (test code = 1+ *ABN*(04/14/18 7:12 Microcyte) PM) [facility] CenterWsfzplgOIQRSLBTBJ6279-28-62 00:12:00 Test Item Value Reference Range Interpretation Comments Plt Morph (test code = Normal (04/14/18 7:12 PM) Plt Morph) [facility] CenterVcfjqmvJHMSHSQXLK4581-89-32 00:12:00 Test Item Value Reference Range Interpretation Comments Lymphocytes (test code = Lymphocytes) 17.2 20.0-40.0 [facility] CenterZjpubieLYVJSRGOTF9306-04-60 00:12:00 Test Item Value Reference Range Interpretation Comments Segs (test code = Segs) 72.3 45.0-75.0 [facility] CenterByytdmlSSXQUQIIXI2594-50-86 00:12:00 Test Item Value Reference Range Interpretation Comments Monocytes (test code = Monocytes) 7.5 2.0-12.0 [facility]JrzgnqcSQQVYGENUR6116-65-85 12:10:00 Test Item Value Reference Range Interpretation Comments Vanco Lvl (test code = Vanco Lvl) 17.4 [facility]WwfoffhYVNAYFAKQA7211-91-40 12:10:00 Test Item Value Reference Range Interpretation Comments Vanco Lvl (test code = Vanco Lvl) 17.4 [facility]WhuyysbHWCEXOFLMB6075-21-34 12:10:00 Test Item Value Reference Range Interpretation Comments Vanco Lvl (test code = Vanco Lvl) 17.4 [facility] HospitalMwlscknLCGSGVOAXS5524-95-00 12:10:00 Test Item Value Reference Range Interpretation Comments Vanco Lvl (test code = Vanco Lvl) 17.4 [facility] OWQUZ3730-61-20 08:01:00 Test Item Value Reference Range Interpretation Comments Magnesium Lvl (test code = Magnesium 2.1 1.8-2.4 Lvl) [facility] APKQN4348-70-13 08:01:00 Test Item Value Reference Range Interpretation Comments Phosphorus (test code = Phosphorus) 5.6 2.5-4.5 [facility]OznzbpsMZXNRVJOGCOS2722-09-63 08:01:00 Test Item Value Reference Range Interpretation Comments AGAP (test code = AGAP) 17.3 10.0-20.0 [facility] HospitalOdbuqygONRHWIJKUFBI2895-34-66 08:01:00 Test Item Value Reference Range Interpretation Comments eGFR (test code = eGFR) 5 [facility] HospitalQmgfgzlMFMTWBFSMWCA1208-13-48 08:01:00 Test Item Value Reference Range Interpretation Comments Chloride Lvl (test code = Chloride Lvl) 94 95-109 [facility] HospitalGnsnfjxDJJRGLHYQOSC3838-80-27 08:01:00 Test Item Value Reference Range Interpretation Comments CO2 (test code = CO2) 24 24-32 [facility] HospitalOdqbdhhWDGNBUCGZWXR8380-50-92 08:01:00 Test Item Value Reference Range Interpretation Comments Calcium Lvl (test code = Calcium Lvl) 8.3 8.5-10.5 [facility] HospitalMdbawndPPDAWUMVGLNO4031-52-68 08:01:00 Test Item Value Reference Range Interpretation Comments Glucose Lvl (test code = Glucose Lvl) 120 70-99 [facility] HospitalOslwokgQJPJMMHBXOYV0956-11-39 08:01:00 Test Item Value Reference Range Interpretation Comments Potassium Lvl (test code = Potassium 4.3 3.5-5.1 Lvl) [facility] HospitalSfqqgbeYIGXMDZUGQNF2389-20-77 08:01:00 Test Item Value Reference Range Interpretation Comments Sodium Lvl (test code = Sodium Lvl) 131 135-145 [facility] HospitalWobivjxEEQOXZZZYEPZ0725-27-14 08:01:00 Test Item Value Reference Range Interpretation Comments BUN (test code = BUN) 55 7-22 [facility] HospitalJjuwyxjINQKXDCDZYKK0202-88-37 08:01:00 Test Item Value Reference Range Interpretation Comments Creatinine Lvl (test code = Creatinine 9.62 0.50-1.40 Lvl) [facility] CenterAjbjlgyEUBPWNKBBL9497-97-87 08:01:00 Test Item Value Reference Range Interpretation Comments Basophils (test code = 0.3 See_Comment [Aut omated message] The Basophils) system which ge nerated this result tra nsmitted reference range : <=1.0. The reference r yared was not used to int erpret this result as normal/abnormal . [facility] CenterFthsaofFHOKWKWODA3579-67-05 08:01:00 Test Item Value Reference Range Interpretation Comments Monocytes (test code = Monocytes) 10.9 2.0-12.0 [facility] CenterQguxwraVSUCHQKRTN4206-37-97 08:01:00 Test Item Value Reference Range Interpretation Comments Segs (test code = Segs) 78.7 45.0-75.0 [facility] CenterLcojeyhANAVHDOWHD5145-36-07 08:01:00 Test Item Value Reference Range Interpretation Comments Lymphocytes (test code = Lymphocytes) 8.8 20.0-40.0 [facility] CenterDswagofFLYYDQYXFY7518-25-33 08:01:00 Test Item Value Reference Range Interpretation Comments Eosinophils # (test code 0.1 See_Comment [A utomated message] The = Eosinophils #) system whic h generated this result tra nsmitted reference range : <=0.5. The reference r yared was not used to int erpret this result as normal/abnormal . [facility] CenterDxjahztGHPJUFMJWU2180-72-94 08:01:00 Test Item Value Reference Range Interpretation Comments Monocytes # (test code 0.9 See_Comment [Aut omated message] The = Monocytes #) system which generated this result tra nsmitted reference range : <=0.8. The reference r yared was not used to int erpret this result as normal/abnormal . [facility] CenterHwzqijnMLVZFORJFU6414-60-11 08:01:00 Test Item Value Reference Range Interpretation Comments Eosinophils (test code = 1.3 See_Comment [A utomated message] The Eosinophils) system which ge nerated this result tra nsmitted reference range : <=4.0. The reference r yared was not used to int erpret this result as normal/abnormal . [facility] CenterQyqlraiFHAKTEJESR1851-72-11 08:01:00 Test Item Value Reference Range Interpretation Comments Microcyte (test code = 1+ *ABN*(03/19/18 Microcyte) 3:01 AM) [facility] CenterPveevzkSNJSIYSPZH0014-69-29 08:01:00 Test Item Value Reference Range Interpretation Comments Segs-Bands # (test code = Segs-Bands #) 6.5 1.5-8.1 [facility] CenterIlizowfKAAFALNFFS0837-35-92 08:01:00 Test Item Value Reference Range Interpretation Comments Lymphocytes # (test code = Lymphocytes 0.7 1.0-5.5 #) [facility]CiaatzbZEYVDPXTNO7049-53-87 08:01:00 Test Item Value Reference Range Interpretation Comments MPV (test code = MPV) 7.9 7.4-10.4 [facility] CenterZivkcesVSNWRQCGMD3300-27-22 08:01:00 Test Item Value Reference Range Interpretation Comments Platelet (test code = Platelet) 240 133-450 [facility] HospitalTktvgruJQTKEAIWUT3825-93-17 08:01:00 Test Item Value Reference Range Interpretation Comments MCH (test code = MCH) 26.4 pg 27.0-31.0 [facility] HospitalKdhlckqDJFENJKKMV4587-75-92 08:01:00 Test Item Value Reference Range Interpretation Comments RDW (test code = RDW) 15.4 11.5-14.5 [facility] HospitalNqhsiczHJGTTFNKMX6361-91-20 08:01:00 Test Item Value Reference Range Interpretation Comments MCHC (test code = MCHC) 34.2 32.0-36.0 [facility] HospitalWeeeqvnEOANGJGPAQ9612-82-98 08:01:00 Test Item Value Reference Range Interpretation Comments RBC (test code = RBC) 2.99 4.70-6.10 [facility] HospitalQhqzdseARWJOSYUSK2399-49-67 08:01:00 Test Item Value Reference Range Interpretation Comments WBC (test code = WBC) 8.2 3.7-10.4 [facility] HospitalDpahxxoLSCTVPPSSI6017-54-01 08:01:00 Test Item Value Reference Range Interpretation Comments Hct (test code = Hct) 23.1 42.0-54.0 [facility] HospitalKallfupGRTYHRWNJW0158-07-04 08:01:00 Test Item Value Reference Range Interpretation Comments Hgb (test code = Hgb) 7.9 14.0-18.0 [facility] CenterNjnhcrnUUDQAZCJIZ9426-73-81 08:01:00 Test Item Value Reference Range Interpretation Comments MCV (test code = MCV) 77.1 80.0-94.0 [facility] YBGJX7857-79-40 08:01:00 Test Item Value Reference Range Interpretation Comments Magnesium Lvl (test code = Magnesium 2.1 1.8-2.4 Lvl) [facility] SUDSI1449-49-82 08:01:00 Test Item Value Reference Range Interpretation Comments Phosphorus (test code = Phosphorus) 5.6 2.5-4.5 [facility]VovlmkjHLMNRWOXKOPI2783-54-06 08:01:00 Test Item Value Reference Range Interpretation Comments AGAP (test code = AGAP) 17.3 10.0-20.0 [facility] HospitalDyetxjfZHBAQRYDVIPX9375-26-71 08:01:00 Test Item Value Reference Range Interpretation Comments eGFR (test code = eGFR) 5 [facility] HospitalAffqxrgGUAHDZQQFOMP4462-60-83 08:01:00 Test Item Value Reference Range Interpretation Comments Chloride Lvl (test code = Chloride Lvl) 94 95-109 [facility] HospitalCsbyjwxVHYHUSWQLWMP5613-68-27 08:01:00 Test Item Value Reference Range Interpretation Comments CO2 (test code = CO2) 24 24-32 [facility] HospitalYqokpgcJYIIHITQKGLY0300-20-04 08:01:00 Test Item Value Reference Range Interpretation Comments Calcium Lvl (test code = Calcium Lvl) 8.3 8.5-10.5 [facility] HospitalPphefduUITGQFAAENCL5242-27-47 08:01:00 Test Item Value Reference Range Interpretation Comments Glucose Lvl (test code = Glucose Lvl) 120 70-99 [facility] HospitalQwuthqvVRYBBRZMELDX7947-44-25 08:01:00 Test Item Value Reference Range Interpretation Comments Potassium Lvl (test code = Potassium 4.3 3.5-5.1 Lvl) [facility] HospitalPudyoffHNQSTJPMKDCQ1373-76-11 08:01:00 Test Item Value Reference Range Interpretation Comments Sodium Lvl (test code = Sodium Lvl) 131 135-145 [facility] HospitalWuakxqzEXUZAEXZOWOU4668-79-25 08:01:00 Test Item Value Reference Range Interpretation Comments BUN (test code = BUN) 55 7-22 [facility] HospitalLxgwgocSSELCLIVBBCB4155-52-19 08:01:00 Test Item Value Reference Range Interpretation Comments Creatinine Lvl (test code = Creatinine 9.62 0.50-1.40 Lvl) [facility] CenterRzeyqiwBLWIWLTLYL3639-38-97 08:01:00 Test Item Value Reference Range Interpretation Comments Basophils (test code = 0.3 See_Comment [Aut omated message] The Basophils) system which ge nerated this result tra nsmitted reference range : <=1.0. The reference r yared was not used to int erpret this result as normal/abnormal . [facility] CenterFbcnrcfGWOMUKDMXP7427-29-86 08:01:00 Test Item Value Reference Range Interpretation Comments Monocytes (test code = Monocytes) 10.9 2.0-12.0 [facility] CenterNnoysetBGXXCSAFWZ9660-17-39 08:01:00 Test Item Value Reference Range Interpretation Comments Segs (test code = Segs) 78.7 45.0-75.0 [facility] CenterKtcjmeyQXIOTHZYXW7374-79-61 08:01:00 Test Item Value Reference Range Interpretation Comments Lymphocytes (test code = Lymphocytes) 8.8 20.0-40.0 [facility] CenterVydmgjuWKVRYKWBYO0089-27-12 08:01:00 Test Item Value Reference Range Interpretation Comments Eosinophils # (test code 0.1 See_Comment [A utomated message] The = Eosinophils #) system whic h generated this result tra nsmitted reference range : <=0.5. The reference r yared was not used to int erpret this result as normal/abnormal . [facility] CenterXsvzhfcATPUDLIPHU2587-92-37 08:01:00 Test Item Value Reference Range Interpretation Comments Monocytes # (test code 0.9 See_Comment [Aut omated message] The = Monocytes #) system which generated this result tra nsmitted reference range : <=0.8. The reference r yared was not used to int erpret this result as normal/abnormal . [facility] CenterMmszxkoTYBCPZONTB1898-62-90 08:01:00 Test Item Value Reference Range Interpretation Comments Eosinophils (test code = 1.3 See_Comment [A utomated message] The Eosinophils) system which ge nerated this result tra nsmitted reference range : <=4.0. The reference r yared was not used to int erpret this result as normal/abnormal . [facility] CenterXcxwfsvRYUFHNUVGK7350-50-28 08:01:00 Test Item Value Reference Range Interpretation Comments Microcyte (test code = 1+ *ABN*(03/19/18 Microcyte) 3:01 AM) [facility] CenterCgkngsoHCPGKNKVOM9627-81-46 08:01:00 Test Item Value Reference Range Interpretation Comments Segs-Bands # (test code = Segs-Bands #) 6.5 1.5-8.1 [facility] CenterZxfkiioGPRGLCUALF0697-10-36 08:01:00 Test Item Value Reference Range Interpretation Comments Lymphocytes # (test code = Lymphocytes 0.7 1.0-5.5 #) [facility] CenterKyuedwzWZCEFFVNIW7527-93-35 08:01:00 Test Item Value Reference Range Interpretation Comments MPV (test code = MPV) 7.9 7.4-10.4 [facility] HospitalNlgqpvdLKCZZCMIKL9697-91-19 08:01:00 Test Item Value Reference Range Interpretation Comments Platelet (test code = Platelet) 240 133-450 [facility] HospitalEtmmyioLGNENDHKDT0198-86-05 08:01:00 Test Item Value Reference Range Interpretation Comments MCH (test code = MCH) 26.4 pg 27.0-31.0 [facility] HospitalUxvisusBICMNMULJY8139-09-70 08:01:00 Test Item Value Reference Range Interpretation Comments RDW (test code = RDW) 15.4 11.5-14.5 [facility] HospitalYybujumFTRWMPTEIT5800-37-26 08:01:00 Test Item Value Reference Range Interpretation Comments MCHC (test code = MCHC) 34.2 32.0-36.0 [facility] HospitalDgoowjyTRZCGEAJTY8901-63-44 08:01:00 Test Item Value Reference Range Interpretation Comments RBC (test code = RBC) 2.99 4.70-6.10 [facility] HospitalUruuivaBTKJHBXSAF9287-73-13 08:01:00 Test Item Value Reference Range Interpretation Comments WBC (test code = WBC) 8.2 3.7-10.4 [facility] HospitalQvgrnuxWNOLLJCWCZ7187-83-73 08:01:00 Test Item Value Reference Range Interpretation Comments Hct (test code = Hct) 23.1 42.0-54.0 [facility] HospitalWwpmmpfOAJTLRUWWD9778-20-92 08:01:00 Test Item Value Reference Range Interpretation Comments Hgb (test code = Hgb) 7.9 14.0-18.0 [facility] HospitalFsjbsccJLCZNHHFJL1305-82-18 08:01:00 Test Item Value Reference Range Interpretation Comments MCV (test code = MCV) 77.1 80.0-94.0 [facility]CHEM HLRAM1407-25-22 08:01:00 Test Item Value Reference Range Interpretation Comments Magnesium Lvl (test code = Magnesium 2.1 1.8-2.4 Lvl) [facility]CHEM UIMES1186-68-79 08:01:00 Test Item Value Reference Range Interpretation Comments Phosphorus (test code = Phosphorus) 5.6 2.5-4.5 [facility] HospitalBldqootWOROMVGBMAHN5407-03-40 08:01:00 Test Item Value Reference Range Interpretation Comments AGAP (test code = AGAP) 17.3 10.0-20.0 [facility] HospitalLcqpumzQLTCJOXUWBQC8592-47-04 08:01:00 Test Item Value Reference Range Interpretation Comments eGFR (test code = eGFR) 5 [facility] HospitalHzdpgccJUGRNCGFVLHH4880-35-71 08:01:00 Test Item Value Reference Range Interpretation Comments Chloride Lvl (test code = Chloride Lvl) 94 95-109 [facility] HospitalGbiyfzgUTAQSPEMWAUI2290-73-30 08:01:00 Test Item Value Reference Range Interpretation Comments CO2 (test code = CO2) 24 24-32 [facility] HospitalQrgoemvYWJOAUPVYMQL5116-79-57 08:01:00 Test Item Value Reference Range Interpretation Comments Calcium Lvl (test code = Calcium Lvl) 8.3 8.5-10.5 [facility] HospitalLkrblnqZGYATIOTDTYL3698-34-80 08:01:00 Test Item Value Reference Range Interpretation Comments Glucose Lvl (test code = Glucose Lvl) 120 70-99 [facility] HospitalCcprlihKQMYJWLLBWDK3691-69-98 08:01:00 Test Item Value Reference Range Interpretation Comments Potassium Lvl (test code = Potassium 4.3 3.5-5.1 Lvl) [facility] HospitalEfjuapeAKLLRMCQOICK7995-66-94 08:01:00 Test Item Value Reference Range Interpretation Comments Sodium Lvl (test code = Sodium Lvl) 131 135-145 [facility] HospitalHiffhdgSYDDHTIJLVMS4079-85-72 08:01:00 Test Item Value Reference Range Interpretation Comments BUN (test code = BUN) 55 7-22 [facility] HospitalLxneebfRUJPXBIEXINL3097-17-07 08:01:00 Test Item Value Reference Range Interpretation Comments Creatinine Lvl (test code = Creatinine 9.62 0.50-1.40 Lvl) [facility] CenterRhtfxzbPKCGDLZPIQ9612-72-74 08:01:00 Test Item Value Reference Range Interpretation Comments Basophils (test code = 0.3 See_Comment [Aut omated message] The Basophils) system which ge nerated this result tra nsmitted reference range : <=1.0. The reference r yared was not used to int erpret this result as normal/abnormal . [facility] CenterPguwxfoZEMCXJVRWZ1824-72-20 08:01:00 Test Item Value Reference Range Interpretation Comments Monocytes (test code = Monocytes) 10.9 2.0-12.0 [facility] CenterWufuvicCSMVXLYKMS4329-62-87 08:01:00 Test Item Value Reference Range Interpretation Comments Segs (test code = Segs) 78.7 45.0-75.0 [facility] CenterVtpimdkIGMBOXCJNX1129-34-84 08:01:00 Test Item Value Reference Range Interpretation Comments Lymphocytes (test code = Lymphocytes) 8.8 20.0-40.0 [facility] CenterLdcksjcBOJPSKNHML3631-49-37 08:01:00 Test Item Value Reference Range Interpretation Comments Eosinophils # (test code 0.1 See_Comment [A utomated message] The = Eosinophils #) system whic h generated this result tra nsmitted reference range : <=0.5. The reference r yared was not used to int erpret this result as normal/abnormal . [facility] CenterXrvijsiMRCCWVJPOO7793-75-47 08:01:00 Test Item Value Reference Range Interpretation Comments Monocytes # (test code 0.9 See_Comment [Aut omated message] The = Monocytes #) system which generated this result tra nsmitted reference range : <=0.8. The reference r yared was not used to int erpret this result as normal/abnormal . [facility] CenterMjrqnwqNVJGRKRFYX0474-85-55 08:01:00 Test Item Value Reference Range Interpretation Comments Eosinophils (test code = 1.3 See_Comment [A utomated message] The Eosinophils) system which ge nerated this result tra nsmitted reference range : <=4.0. The reference r yared was not used to int erpret this result as normal/abnormal . [facility] CenterPfmpsukFUDIVVMVJC1967-43-27 08:01:00 Test Item Value Reference Range Interpretation Comments Microcyte (test code = 1+ *ABN*(03/19/18 Microcyte) 3:01 AM) [facility] CenterWgieoeqJKYSSKORAP5958-68-39 08:01:00 Test Item Value Reference Range Interpretation Comments Segs-Bands # (test code = Segs-Bands #) 6.5 1.5-8.1 [facility] CenterHzrdvjdICGXOTADCX1632-33-28 08:01:00 Test Item Value Reference Range Interpretation Comments Lymphocytes # (test code = Lymphocytes 0.7 1.0-5.5 #) [facility] CenterYgiwdzjFVCWTRKDIT8771-21-98 08:01:00 Test Item Value Reference Range Interpretation Comments MPV (test code = MPV) 7.9 7.4-10.4 [facility] CenterJlcyiqqCOILXJQIBP3874-26-17 08:01:00 Test Item Value Reference Range Interpretation Comments Platelet (test code = Platelet) 240 133-450 [facility] HospitalXzzvuqyZTHLRSZYPK1873-06-49 08:01:00 Test Item Value Reference Range Interpretation Comments MCH (test code = MCH) 26.4 pg 27.0-31.0 [facility] [facility]GxhrekeBOOZBSULAR3299-61-68 08:01:00 Test Item Value Reference Range Interpretation Comments RDW (test code = RDW) 15.4 11.5-14.5 [facility] CenterCqxfksiIMCPKZRRRX1571-26-88 08:01:00 Test Item Value Reference Range Interpretation Comments MCHC (test code = MCHC) 34.2 32.0-36.0 [facility] CenterEmdryovWNBNCVHNRV7257-86-94 08:01:00 Test Item Value Reference Range Interpretation Comments RBC (test code = RBC) 2.99 4.70-6.10 [facility] CenterIeboyyaASEIGQVPWI5549-22-55 08:01:00 Test Item Value Reference Range Interpretation Comments WBC (test code = WBC) 8.2 3.7-10.4 [facility] CenterRgvarbmRCZKDGROCH6248-81-58 08:01:00 Test Item Value Reference Range Interpretation Comments Hct (test code = Hct) 23.1 42.0-54.0 [facility]ZrhmfipNHYJPQVLDS2701-59-77 08:01:00 Test Item Value Reference Range Interpretation Comments Hgb (test code = Hgb) 7.9 14.0-18.0 [facility] HospitalLeuogweSPRLJBHEGN6591-10-69 08:01:00 Test Item Value Reference Range Interpretation Comments MCV (test code = MCV) 77.1 80.0-94.0 [facility] TCXTO7544-01-20 08:01:00 Test Item Value Reference Range Interpretation Comments Magnesium Lvl (test code = Magnesium 2.1 1.8-2.4 Lvl) [facility]CHE[facility] QBLYR9284-85-28 08:01:00 Test Item Value Reference Range Interpretation Comments Phosphorus (test code = Phosphorus) 5.6 2.5-4.5 [facility]TcyxnixYKNAAYZTZYJM7400-95-01 08:01:00 Test Item Value Reference Range Interpretation Comments AGAP (test code = AGAP) 17.3 10.0-20.0 [facility] CampusSwjzyezRYHKGAWOINDI0193-17-81 08:01:00 Test Item Value Reference Range Interpretation Comments eGFR (test code = eGFR) 5 [facility] HospitalAwkpeqaGCGERJENVHDL0844-33-81 08:01:00 Test Item Value Reference Range Interpretation Comments Chloride Lvl (test code = Chloride Lvl) 94 95-109 [facility] HospitalXammrydROAHKNNHPSNN0048-17-71 08:01:00 Test Item Value Reference Range Interpretation Comments CO2 (test code = CO2) 24 24-32 [facility] HospitalBiupdqtPZTTVJYUVKAW2188-21-25 08:01:00 Test Item Value Reference Range Interpretation Comments Calcium Lvl (test code = Calcium Lvl) 8.3 8.5-10.5 [facility] HospitalLorzvrzTXQIAUPQAGIO0505-94-46 08:01:00 Test Item Value Reference Range Interpretation Comments Glucose Lvl (test code = Glucose Lvl) 120 70-99 [facility] HospitalYttahnpLKLKWFBHGACV0915-50-39 08:01:00 Test Item Value Reference Range Interpretation Comments Potassium Lvl (test code = Potassium 4.3 3.5-5.1 Lvl) [facility] HospitalVuowyfuALLUQWTBDRVI1251-19-20 08:01:00 Test Item Value Reference Range Interpretation Comments Sodium Lvl (test code = Sodium Lvl) 131 135-145 [facility] HospitalHstaneiQSQUGMDLXQDW1559-67-54 08:01:00 Test Item Value Reference Range Interpretation Comments BUN (test code = BUN) 55 7-22 [facility] HospitalSsbxeooBVIXKHWDYDDE5947-46-14 08:01:00 Test Item Value Reference Range Interpretation Comments Creatinine Lvl (test code = Creatinine 9.62 0.50-1.40 Lvl) [facility] CenterNnwyzqjWOLZSSXIZW2695-80-17 08:01:00 Test Item Value Reference Range Interpretation Comments Basophils (test code = 0.3 See_Comment [Aut omated message] The Basophils) system which ge nerated this result tra nsmitted reference range : <=1.0. The reference r yared was not used to int erpret this result as normal/abnormal . [facility] CenterGwfmbyvEOYZUQFQCU8617-31-09 08:01:00 Test Item Value Reference Range Interpretation Comments Monocytes (test code = Monocytes) 10.9 2.0-12.0 [facility] CenterBnhmyqaJTCNHWJTOO4491-98-98 08:01:00 Test Item Value Reference Range Interpretation Comments Segs (test code = Segs) 78.7 45.0-75.0 [facility] CenterAkopdeoIZWXVWYTFD9145-55-21 08:01:00 Test Item Value Reference Range Interpretation Comments Lymphocytes (test code = Lymphocytes) 8.8 20.0-40.0 [facility] CenterUmaouswNZPLJZUXOU3482-75-44 08:01:00 Test Item Value Reference Range Interpretation Comments Eosinophils # (test code 0.1 See_Comment [A utomated message] The = Eosinophils #) system whic h generated this result tra nsmitted reference range : <=0.5. The reference r yared was not used to int erpret this result as normal/abnormal . [facility] CenterLlppsuhXRAKYIDYTM1030-50-71 08:01:00 Test Item Value Reference Range Interpretation Comments Monocytes # (test code 0.9 See_Comment [Aut omated message] The = Monocytes #) system which generated this result tra nsmitted reference range : <=0.8. The reference r yared was not used to int erpret this result as normal/abnormal . [facility] CenterOfqcualYSVQGDYRBB4885-39-26 08:01:00 Test Item Value Reference Range Interpretation Comments Eosinophils (test code = 1.3 See_Comment [A utomated message] The Eosinophils) system which ge nerated this result tra nsmitted reference range : <=4.0. The reference r yared was not used to int erpret this result as normal/abnormal . [facility] CenterRcuuvhoFAKPATKOVW2473-91-28 08:01:00 Test Item Value Reference Range Interpretation Comments Microcyte (test code = 1+ *ABN*(03/19/18 Microcyte) 3:01 AM) [facility] CenterPduufddWNJXXSFXFU8308-55-40 08:01:00 Test Item Value Reference Range Interpretation Comments Segs-Bands # (test code = Segs-Bands #) 6.5 1.5-8.1 [facility] CenterPseldquPXEHXRDIBB4978-32-40 08:01:00 Test Item Value Reference Range Interpretation Comments Lymphocytes # (test code = Lymphocytes 0.7 1.0-5.5 #) [facility] CenterChyesgpQXYZJNCQHB7815-63-08 08:01:00 Test Item Value Reference Range Interpretation Comments MPV (test code = MPV) 7.9 7.4-10.4 [facility] CenterTbqrckzBKEWRHADQI1268-14-53 08:01:00 Test Item Value Reference Range Interpretation Comments Platelet (test code = Platelet) 240 133-450 [facility] CenterRdwjfhcPCWNZURJCT7765-89-57 08:01:00 Test Item Value Reference Range Interpretation Comments MCH (test code = MCH) 26.4 pg 27.0-31.0 [facility] CenterDfwcbyzRHHFILLJWB4742-82-47 08:01:00 Test Item Value Reference Range Interpretation Comments RDW (test code = RDW) 15.4 11.5-14.5 [facility] CenterGswwwxlSRCKJVBGWM4377-16-25 08:01:00 Test Item Value Reference Range Interpretation Comments MCHC (test code = MCHC) 34.2 32.0-36.0 [facility] CenterSiaezteCNJLVBWWJW3625-09-75 08:01:00 Test Item Value Reference Range Interpretation Comments RBC (test code = RBC) 2.99 4.70-6.10 [facility] CenterAjlbrjoYEEXSAONSX6313-05-15 08:01:00 Test Item Value Reference Range Interpretation Comments WBC (test code = WBC) 8.2 3.7-10.4 [facility] CenterAqwdsoxLEXEGQEQRC7695-29-24 08:01:00 Test Item Value Reference Range Interpretation Comments Hct (test code = Hct) 23.1 42.0-54.0 [facility] CenterCtyvtzfXIILQIZEXN9821-77-38 08:01:00 Test Item Value Reference Range Interpretation Comments Hgb (test code = Hgb) 7.9 14.0-18.0 [facility] CenterQjoyurfRYLEOSBDES0273-85-69 08:01:00 Test Item Value Reference Range Interpretation Comments MCV (test code = MCV) 77.1 80.0-94.0 [facility]2018-06-10 08:29:00 Test Item Value Reference Range Interpretation Comments Magnesium Lvl (test code = Magnesium 2.3 1.8-2.4 Lvl) [facility]2018-06-10 08:29:00 Test Item Value Reference Range Interpretation Comments eGFR (test code = eGFR) 6 [facility]2018-06-10 08:29:00 Test Item Value Reference Range Interpretation Comments Bili Total (test code = Bili Total) 0.4 0.2-1.3 [facility]2018-06-10 08:29:00 Test Item Value Reference Range Interpretation Comments Potassium Lvl (test code = Potassium 4.0 3.5-5.1 Lvl) [facility]2018-06-10 08:29:00 Test Item Value Reference Range Interpretation Comments Glucose Lvl (test code = Glucose Lvl) 105 70-99 [facility]2018-06-10 08:29:00 Test Item Value Reference Range Interpretation Comments BUN (test code = BUN) 50 7-22 [facility]2018-06-10 08:29:00 Test Item Value Reference Range Interpretation Comments Sodium Lvl (test code = Sodium Lvl) 133 135-145 [facility]2018-06-10 08:29:00 Test Item Value Reference Range Interpretation Comments Creatinine Lvl (test code = Creatinine 8.40 0.50-1.40 Lvl) [facility]2018-06-10 08:29:00 Test Item Value Reference Range Interpretation Comments Chloride Lvl (test code = Chloride Lvl) 97 95-109 [facility]2018-06-10 08:29:00 Test Item Value Reference Range Interpretation Comments Alk Phos (test code = Alk Phos) 104 39-136 [facility]2018-06-10 08:29:00 Test Item Value Reference Range Interpretation Comments Albumin Lvl (test code = Albumin Lvl) 2.7 3.5-5.0 [facility]2018-06-10 08:29:00 Test Item Value Reference Range Interpretation Comments Total Protein (test code = Total 6.9 6.4-8.4 Protein) [facility]2018-06-10 08:29:00 Test Item Value Reference Range Interpretation Comments Calcium Lvl (test code = Calcium Lvl) 8.0 8.5-10.5 [facility]2018-06-10 08:29:00 Test Item Value Reference Range Interpretation Comments CO2 (test code = CO2) 26 24-32 [facility]2018-06-10 08:29:00 Test Item Value Reference Range Interpretation Comments AST (test code = AST) 9 See_Comment [Auto mated message] The system which ge nerated this result transmit emerson reference range : <=37. The reference range was not used to interpr et this result as erinn l/abnormal. [facility]2018-06-10 08:29:00 Test Item Value Reference Range Interpretation Comments ALT (test code = ALT) 12 See_Comment [Auto mated message] The system which ge nerated this result transmit emerson reference range : <=65. The reference range was not used to interpr et this result as erinn l/abnormal. [facility]2018-06-10 08:29:00 Test Item Value Reference Range Interpretation Comments B/C Ratio (test code = B/C Ratio) 6 1 6-25 [facility]2018-06-10 08:29:00 Test Item Value Reference Range Interpretation Comments AGAP (test code = AGAP) 14.0 10.0-20.0 [facility]2018-06-10 08:29:00 Test Item Value Reference Range Interpretation Comments Globulin (test code = Globulin) 4.2 2.7-4.2 [facility]2018-06-10 08:29:00 Test Item Value Reference Range Interpretation Comments A/G Ratio (test code = A/G Ratio) 0.6 1 0.7-1.6 [facility]2018-06-10 08:29:00 Test Item Value Reference Range Interpretation Comments Phosphorus (test code = Phosphorus) 5.7 2.5-4.5 [facility] CenterYwsnjldKZLNKXWLLI5566-97-80 08:29:00 Test Item Value Reference Range Interpretation Comments INR (test code = INR) 1.23 1 0.85-1.17 [facility] CenterByftzyjBVFRKYQFWP0834-64-36 08:29:00 Test Item Value Reference Range Interpretation Comments PTT (test code = PTT) 42.0 s 22.9-35.8 [facility] CenterRkpjrqrBZEQQLCLEU0065-49-22 08:29:00 Test Item Value Reference Range Interpretation Comments PT (test code = PT) 15.6 s 12.0-14.7 [facility] CenterOkliqytOPUEBLXCZW0859-84-56 08:29:00 Test Item Value Reference Range Interpretation Comments Microcyte (test code = 1+ *ABN*(03/18/18 Microcyte) 3:29 AM) [facility] CenterQvsjzsyZTDQTSMSPC2461-09-97 08:29:00 Test Item Value Reference Range Interpretation Comments Monocytes # (test code 1.0 See_Comment [Aut omated message] The = Monocytes #) system which generated this result tra nsmitted reference range : <=0.8. The reference r yared was not used to int erpret this result as normal/abnormal . [facility] CenterBcgqgqxPGSZDFVLTY5507-48-43 08:29:00 Test Item Value Reference Range Interpretation Comments Eosinophils # (test code 0.1 See_Comment [A utomated message] The = Eosinophils #) system whic h generated this result tra nsmitted reference range : <=0.5. The reference r yared was not used to int erpret this result as normal/abnormal . [facility] CenterGqyufxvNBVKWEYDAM5540-50-18 08:29:00 Test Item Value Reference Range Interpretation Comments Lymphocytes # (test code = Lymphocytes 0.9 1.0-5.5 #) [facility] CenterGqcuzhbPBBDSVBDWN7221-93-89 08:29:00 Test Item Value Reference Range Interpretation Comments Segs-Bands # (test code = Segs-Bands #) 5.0 1.5-8.1 [facility] CenterZosnhjdGLYNWPQDKK3545-67-33 08:29:00 Test Item Value Reference Range Interpretation Comments Eosinophils (test code = 1.6 See_Comment [A utomated message] The Eosinophils) system which ge nerated this result tra nsmitted reference range : <=4.0. The reference r yared was not used to int erpret this result as normal/abnormal . [facility] CenterYadvrbnIULIVHHPJD5886-79-68 08:29:00 Test Item Value Reference Range Interpretation Comments Lymphocytes (test code = Lymphocytes) 13.3 20.0-40.0 [facility] CenterUzcvdfwVCPNCOKULB1648-61-63 08:29:00 Test Item Value Reference Range Interpretation Comments Basophils (test code = 0.5 See_Comment [Aut omated message] The Basophils) system which ge nerated this result tra nsmitted reference range : <=1.0. The reference r yared was not used to int erpret this result as normal/abnormal . [facility] CenterRbosapaUZWJXQVNXJ4424-00-04 08:29:00 Test Item Value Reference Range Interpretation Comments Monocytes (test code = Monocytes) 13.9 2.0-12.0 [facility] CenterVxntbhhDGFATHACSZ1122-76-37 08:29:00 Test Item Value Reference Range Interpretation Comments Segs (test code = Segs) 70.7 45.0-75.0 [facility] CenterOurultqALSFHNADZU5011-89-03 08:29:00 Test Item Value Reference Range Interpretation Comments Platelet (test code = Platelet) 217 133-450 [facility] CenterEbnhhjaWZURZYQEAW6165-23-52 08:29:00 Test Item Value Reference Range Interpretation Comments MPV (test code = MPV) 7.9 7.4-10.4 [facility] CenterMkxdydqJJKEDEZYVK2436-56-36 08:29:00 Test Item Value Reference Range Interpretation Comments MCHC (test code = MCHC) 33.8 32.0-36.0 [facility] CenterBizlhpeRZKTFEWEDK9943-54-17 08:29:00 Test Item Value Reference Range Interpretation Comments RDW (test code = RDW) 15.0 11.5-14.5 [facility] CenterEffxwpxEJHESAZWWL8534-84-97 08:29:00 Test Item Value Reference Range Interpretation Comments Hct (test code = Hct) 21.8 42.0-54.0 [facility] CenterFnxwrbxSNFWXBUEOH5627-30-44 08:29:00 Test Item Value Reference Range Interpretation Comments MCV (test code = MCV) 77.9 80.0-94.0 [facility] CenterFfuzmncEUUKKXATPK2867-43-08 08:29:00 Test Item Value Reference Range Interpretation Comments MCH (test code = MCH) 26.3 pg 27.0-31.0 [facility] CenterCifurhwNOWUUVXMRR1911-26-99 08:29:00 Test Item Value Reference Range Interpretation Comments RBC (test code = RBC) 2.80 4.70-6.10 [facility] CenterLmekhqqJHJDHLTJJE8414-92-15 08:29:00 Test Item Value Reference Range Interpretation Comments Hgb (test code = Hgb) 7.4 14.0-18.0 [facility] CenterHatzpawALBGPPPVUD8110-79-99 08:29:00 Test Item Value Reference Range Interpretation Comments WBC (test code = WBC) 7.1 3.7-10.4 [facility]2018-06-10 08:29:00 Test Item Value Reference Range Interpretation Comments Magnesium Lvl (test code = Magnesium 2.3 1.8-2.4 Lvl) [facility]2018-06-10 08:29:00 Test Item Value Reference Range Interpretation Comments eGFR (test code = eGFR) 6 [facility]2018-06-10 08:29:00 Test Item Value Reference Range Interpretation Comments Bili Total (test code = Bili Total) 0.4 0.2-1.3 [facility]2018-06-10 08:29:00 Test Item Value Reference Range Interpretation Comments Potassium Lvl (test code = Potassium 4.0 3.5-5.1 Lvl) [facility]2018-06-10 08:29:00 Test Item Value Reference Range Interpretation Comments Glucose Lvl (test code = Glucose Lvl) 105 70-99 [facility]2018-06-10 08:29:00 Test Item Value Reference Range Interpretation Comments BUN (test code = BUN) 50 7-22 [facility]2018-06-10 08:29:00 Test Item Value Reference Range Interpretation Comments Sodium Lvl (test code = Sodium Lvl) 133 135-145 [facility]2018-06-10 08:29:00 Test Item Value Reference Range Interpretation Comments Creatinine Lvl (test code = Creatinine 8.40 0.50-1.40 Lvl) [facility]2018-06-10 08:29:00 Test Item Value Reference Range Interpretation Comments Chloride Lvl (test code = Chloride Lvl) 97 95-109 [facility]2018-06-10 08:29:00 Test Item Value Reference Range Interpretation Comments Alk Phos (test code = Alk Phos) 104 39-136 [facility]2018-06-10 08:29:00 Test Item Value Reference Range Interpretation Comments Albumin Lvl (test code = Albumin Lvl) 2.7 3.5-5.0 [facility]2018-06-10 08:29:00 Test Item Value Reference Range Interpretation Comments Total Protein (test code = Total 6.9 6.4-8.4 Protein) [facility]2018-06-10 08:29:00 Test Item Value Reference Range Interpretation Comments Calcium Lvl (test code = Calcium Lvl) 8.0 8.5-10.5 [facility]2018-06-10 08:29:00 Test Item Value Reference Range Interpretation Comments CO2 (test code = CO2) 26 24-32 [facility]2018-06-10 08:29:00 Test Item Value Reference Range Interpretation Comments AST (test code = AST) 9 See_Comment [Auto mated message] The system which ge nerated this result transmit emerson reference range : <=37. The reference range was not used to interpr et this result as erinn l/abnormal. [facility]2018-06-10 08:29:00 Test Item Value Reference Range Interpretation Comments ALT (test code = ALT) 12 See_Comment [Auto mated message] The system which ge nerated this result transmit emerson reference range : <=65. The reference range was not used to interpr et this result as erinn l/abnormal. [place]648-06-10 08:29:00 Test Item Value Reference Range Interpretation Comments B/C Ratio (test code = B/C Ratio) 6 1 6-25 [facility]2018-06-10 08:29:00 Test Item Value Reference Range Interpretation Comments AGAP (test code = AGAP) 14.0 10.0-20.0 [facility]2018-06-10 08:29:00 Test Item Value Reference Range Interpretation Comments Globulin (test code = Globulin) 4.2 2.7-4.2 [facility]2018-06-10 08:29:00 Test Item Value Reference Range Interpretation Comments A/G Ratio (test code = A/G Ratio) 0.6 1 0.7-1.6 [facility]2018-06-10 08:29:00 Test Item Value Reference Range Interpretation Comments Phosphorus (test code = Phosphorus) 5.7 2.5-4.5 [facility] CenterCkmqcpgIDYNDKTSCA8405-67-91 08:29:00 Test Item Value Reference Range Interpretation Comments INR (test code = INR) 1.23 1 0.85-1.17 [facility] CenterOhejzpqFYZTKWKPOA1399-49-89 08:29:00 Test Item Value Reference Range Interpretation Comments PTT (test code = PTT) 42.0 s 22.9-35.8 [facility] CenterKmlzbayFEVOXSNCNU3923-50-67 08:29:00 Test Item Value Reference Range Interpretation Comments PT (test code = PT) 15.6 s 12.0-14.7 [facility] CenterRcvuejlSPQELDWZXY1166-25-61 08:29:00 Test Item Value Reference Range Interpretation Comments Microcyte (test code = 1+ *ABN*(03/18/18 Microcyte) 3:29 AM) [facility] CenterWfunrvcQTURMUPBTH4523-20-43 08:29:00 Test Item Value Reference Range Interpretation Comments Monocytes # (test code 1.0 See_Comment [Aut omated message] The = Monocytes #) system which generated this result tra nsmitted reference range : <=0.8. The reference r yared was not used to int erpret this result as normal/abnormal . [facility] CenterZwnxolpPRFYUJNHOC2424-92-03 08:29:00 Test Item Value Reference Range Interpretation Comments Eosinophils # (test code 0.1 See_Comment [A utomated message] The = Eosinophils #) system whic h generated this result tra nsmitted reference range : <=0.5. The reference r yared was not used to int erpret this result as normal/abnormal . [facility] CenterCavoakbJYOOCJLFYT4520-62-69 08:29:00 Test Item Value Reference Range Interpretation Comments Lymphocytes # (test code = Lymphocytes 0.9 1.0-5.5 #) [facility] CenterJyuujsgLSAUKNOPTB4429-87-51 08:29:00 Test Item Value Reference Range Interpretation Comments Segs-Bands # (test code = Segs-Bands #) 5.0 1.5-8.1 [facility] CenterLsxeuncPBKAAWLXZU2127-44-23 08:29:00 Test Item Value Reference Range Interpretation Comments Eosinophils (test code = 1.6 See_Comment [A utomated message] The Eosinophils) system which ge nerated this result tra nsmitted reference range : <=4.0. The reference r yared was not used to int erpret this result as normal/abnormal . [facility] CenterCpghkvmYFACBUTBCQ8625-12-30 08:29:00 Test Item Value Reference Range Interpretation Comments Lymphocytes (test code = Lymphocytes) 13.3 20.0-40.0 [facility] CenterObflityQWDJIOVZAK6956-88-04 08:29:00 Test Item Value Reference Range Interpretation Comments Basophils (test code = 0.5 See_Comment [Aut omated message] The Basophils) system which ge nerated this result tra nsmitted reference range : <=1.0. The reference r yared was not used to int erpret this result as normal/abnormal . [facility] CenterMgwvixyORKOHGKKAL7420-25-54 08:29:00 Test Item Value Reference Range Interpretation Comments Monocytes (test code = Monocytes) 13.9 2.0-12.0 [facility] CenterPynovyuYCRCIXECMK4109-78-06 08:29:00 Test Item Value Reference Range Interpretation Comments Segs (test code = Segs) 70.7 45.0-75.0 [facility] CenterArndngaCXCXNKWOAK4694-59-93 08:29:00 Test Item Value Reference Range Interpretation Comments Platelet (test code = Platelet) 217 133-450 [facility] CenterLqgyjnnLVZFYMWCJJ6190-25-07 08:29:00 Test Item Value Reference Range Interpretation Comments MPV (test code = MPV) 7.9 7.4-10.4 [facility] CenterPjjgajjWPFOQKWKMT8886-64-20 08:29:00 Test Item Value Reference Range Interpretation Comments MCHC (test code = MCHC) 33.8 32.0-36.0 [facility] CenterEdzvyeaZPGGOZEBZU4857-42-45 08:29:00 Test Item Value Reference Range Interpretation Comments RDW (test code = RDW) 15.0 11.5-14.5 [facility] CenterWrmabcvYJKOAKXXCX4397-31-03 08:29:00 Test Item Value Reference Range Interpretation Comments Hct (test code = Hct) 21.8 42.0-54.0 [facility] CenterHshlngbAIIFGYYHNT6513-41-85 08:29:00 Test Item Value Reference Range Interpretation Comments MCV (test code = MCV) 77.9 80.0-94.0 [facility] CenterNmzfyawDQMHYYHCNT8597-17-63 08:29:00 Test Item Value Reference Range Interpretation Comments MCH (test code = MCH) 26.3 pg 27.0-31.0 [facility] CenterQilxzgyFUUIFYQKGN1179-12-36 08:29:00 Test Item Value Reference Range Interpretation Comments RBC (test code = RBC) 2.80 4.70-6.10 [facility] CenterYktstcaTQOUOJIXYJ5419-81-76 08:29:00 Test Item Value Reference Range Interpretation Comments Hgb (test code = Hgb) 7.4 14.0-18.0 [facility] CenterBulnbepYAHQVGEVOK2767-99-12 08:29:00 Test Item Value Reference Range Interpretation Comments WBC (test code = WBC) 7.1 3.7-10.4 [facility]2018-06-10 08:29:00 Test Item Value Reference Range Interpretation Comments Magnesium Lvl (test code = Magnesium 2.3 1.8-2.4 Lvl) [facility]2018-06-10 08:29:00 Test Item Value Reference Range Interpretation Comments eGFR (test code = eGFR) 6 [facility]2018-06-10 08:29:00 Test Item Value Reference Range Interpretation Comments Bili Total (test code = Bili Total) 0.4 0.2-1.3 [facility]2018-06-10 08:29:00 Test Item Value Reference Range Interpretation Comments Potassium Lvl (test code = Potassium 4.0 3.5-5.1 Lvl) [facility]2018-06-10 08:29:00 Test Item Value Reference Range Interpretation Comments Glucose Lvl (test code = Glucose Lvl) 105 70-99 [facility]2018-06-10 08:29:00 Test Item Value Reference Range Interpretation Comments BUN (test code = BUN) 50 7-22 [facility]2018-06-10 08:29:00 Test Item Value Reference Range Interpretation Comments Sodium Lvl (test code = Sodium Lvl) 133 135-145 [facility]2018-06-10 08:29:00 Test Item Value Reference Range Interpretation Comments Creatinine Lvl (test code = Creatinine 8.40 0.50-1.40 Lvl) [facility]2018-06-10 08:29:00 Test Item Value Reference Range Interpretation Comments Chloride Lvl (test code = Chloride Lvl) 97 95-109 [facility]2018-06-10 08:29:00 Test Item Value Reference Range Interpretation Comments Alk Phos (test code = Alk Phos) 104 39-136 [facility]2018-06-10 08:29:00 Test Item Value Reference Range Interpretation Comments Albumin Lvl (test code = Albumin Lvl) 2.7 3.5-5.0 [facility]2018-06-10 08:29:00 Test Item Value Reference Range Interpretation Comments Total Protein (test code = Total 6.9 6.4-8.4 Protein) [facility]2018-06-10 08:29:00 Test Item Value Reference Range Interpretation Comments Calcium Lvl (test code = Calcium Lvl) 8.0 8.5-10.5 [facility]2018-06-10 08:29:00 Test Item Value Reference Range Interpretation Comments CO2 (test code = CO2) 26 24-32 [facility]2018-06-10 08:29:00 Test Item Value Reference Range Interpretation Comments AST (test code = AST) 9 See_Comment [Auto mated message] The system which ge nerated this result transmit emerson reference range : <=37. The reference range was not used to interpr et this result as erinn l/abnormal. [facility]2018-06-10 08:29:00 Test Item Value Reference Range Interpretation Comments ALT (test code = ALT) 12 See_Comment [Auto mated message] The system which ge nerated this result transmit emerson reference range : <=65. The reference range was not used to interpr et this result as erinn l/abnormal. [place] 362648-06-10 08:29:00 Test Item Value Reference Range Interpretation Comments B/C Ratio (test code = B/C Ratio) 6 1 6-25 [place] 362648-06-10 08:29:00 Test Item Value Reference Range Interpretation Comments AGAP (test code = AGAP) 14.0 10.0-20.0 [facility]2018-06-10 08:29:00 Test Item Value Reference Range Interpretation Comments Globulin (test code = Globulin) 4.2 2.7-4.2 [facility]2018-06-10 08:29:00 Test Item Value Reference Range Interpretation Comments A/G Ratio (test code = A/G Ratio) 0.6 1 0.7-1.6 [facility]2018-06-10 08:29:00 Test Item Value Reference Range Interpretation Comments Phosphorus (test code = Phosphorus) 5.7 2.5-4.5 [facility]UxxpoizZHTXTLYNPF7035-47-00 08:29:00 Test Item Value Reference Range Interpretation Comments INR (test code = INR) 1.23 1 0.85-1.17 [facility] CenterWvmuwqmXLGDNBCUJB8393-99-56 08:29:00 Test Item Value Reference Range Interpretation Comments PTT (test code = PTT) 42.0 s 22.9-35.8 [facility] CenterAweyidaANPRGLAJUA9147-75-54 08:29:00 Test Item Value Reference Range Interpretation Comments PT (test code = PT) 15.6 s 12.0-14.7 [facility] CenterOarxauqDIYCVUSFNZ8055-34-58 08:29:00 Test Item Value Reference Range Interpretation Comments Microcyte (test code = 1+ *ABN*(03/18/18 Microcyte) 3:29 AM) [facility] CenterKyquiqkQQLHMPJRKH4264-26-71 08:29:00 Test Item Value Reference Range Interpretation Comments Monocytes # (test code 1.0 See_Comment [Aut omated message] The = Monocytes #) system which generated this result tra nsmitted reference range : <=0.8. The reference r yared was not used to int erpret this result as normal/abnormal . [facility] CenterJwbmapuSKGMRUFOSQ5726-38-24 08:29:00 Test Item Value Reference Range Interpretation Comments Eosinophils # (test code 0.1 See_Comment [A utomated message] The = Eosinophils #) system whic h generated this result tra nsmitted reference range : <=0.5. The reference r yared was not used to int erpret this result as normal/abnormal . [facility] CenterWydcmmdSVSSISDDSC9060-46-10 08:29:00 Test Item Value Reference Range Interpretation Comments Lymphocytes # (test code = Lymphocytes 0.9 1.0-5.5 #) [facility] CenterCscmwgaIXTKBAQMCQ5387-05-40 08:29:00 Test Item Value Reference Range Interpretation Comments Segs-Bands # (test code = Segs-Bands #) 5.0 1.5-8.1 [facility] CenterJeqetkvKSJRZEHUTX6736-66-65 08:29:00 Test Item Value Reference Range Interpretation Comments Eosinophils (test code = 1.6 See_Comment [A utomated message] The Eosinophils) system which ge nerated this result tra nsmitted reference range : <=4.0. The reference r yared was not used to int erpret this result as normal/abnormal . [facility] CenterHkrhqtdEETZFCOMIP3975-88-53 08:29:00 Test Item Value Reference Range Interpretation Comments Lymphocytes (test code = Lymphocytes) 13.3 20.0-40.0 [facility] CenterSumhnwfFGREMZLFRG1020-42-45 08:29:00 Test Item Value Reference Range Interpretation Comments Basophils (test code = 0.5 See_Comment [Aut omated message] The Basophils) system which ge nerated this result tra nsmitted reference range : <=1.0. The reference r yared was not used to int erpret this result as normal/abnormal . [facility] CenterYigefjjTDQMEKLFMQ5554-67-32 08:29:00 Test Item Value Reference Range Interpretation Comments Monocytes (test code = Monocytes) 13.9 2.0-12.0 [facility] CenterDgekyzdEFPEMXNYPS8342-12-33 08:29:00 Test Item Value Reference Range Interpretation Comments Segs (test code = Segs) 70.7 45.0-75.0 [facility] CenterSftpfdnGIZJWIIBYR2335-00-74 08:29:00 Test Item Value Reference Range Interpretation Comments Platelet (test code = Platelet) 217 133-450 [facility] CenterZnzllevEXSFMBZLFZ8306-56-51 08:29:00 Test Item Value Reference Range Interpretation Comments MPV (test code = MPV) 7.9 7.4-10.4 [facility] CenterVdlhucaZJSCSXITSH1786-79-46 08:29:00 Test Item Value Reference Range Interpretation Comments MCHC (test code = MCHC) 33.8 32.0-36.0 [facility] CenterYwaxflgZUVIYMLLVC4008-20-60 08:29:00 Test Item Value Reference Range Interpretation Comments RDW (test code = RDW) 15.0 11.5-14.5 [facility] CenterIzwhamcYFLPYRWPPG0153-05-50 08:29:00 Test Item Value Reference Range Interpretation Comments Hct (test code = Hct) 21.8 42.0-54.0 [facility] CenterWeyhaanQYOQGWXQOX4101-38-77 08:29:00 Test Item Value Reference Range Interpretation Comments MCV (test code = MCV) 77.9 80.0-94.0 [facility] CenterZwsoylvOAGSRHXFFB7722-03-52 08:29:00 Test Item Value Reference Range Interpretation Comments MCH (test code = MCH) 26.3 pg 27.0-31.0 [facility] CenterXjwldbtTLZOFEZNPI2226-34-17 08:29:00 Test Item Value Reference Range Interpretation Comments RBC (test code = RBC) 2.80 4.70-6.10 [facility] CenterMclfuncUBBBOQCDKY2823-99-87 08:29:00 Test Item Value Reference Range Interpretation Comments Hgb (test code = Hgb) 7.4 14.0-18.0 [facility] CenterFlulthyXGRNCNGPRT1081-12-27 08:29:00 Test Item Value Reference Range Interpretation Comments WBC (test code = WBC) 7.1 3.7-10.4 [facility]2018-06-10 08:29:00 Test Item Value Reference Range Interpretation Comments Magnesium Lvl (test code = Magnesium 2.3 1.8-2.4 Lvl) [facility]2018-06-10 08:29:00 Test Item Value Reference Range Interpretation Comments eGFR (test code = eGFR) 6 [facility]2018-06-10 08:29:00 Test Item Value Reference Range Interpretation Comments Bili Total (test code = Bili Total) 0.4 0.2-1.3 [facility]2018-06-10 08:29:00 Test Item Value Reference Range Interpretation Comments Potassium Lvl (test code = Potassium 4.0 3.5-5.1 Lvl) [facility]2018-06-10 08:29:00 Test Item Value Reference Range Interpretation Comments Glucose Lvl (test code = Glucose Lvl) 105 70-99 [facility]2018-06-10 08:29:00 Test Item Value Reference Range Interpretation Comments BUN (test code = BUN) 50 7-22 [facility]2018-06-10 08:29:00 Test Item Value Reference Range Interpretation Comments Sodium Lvl (test code = Sodium Lvl) 133 135-145 [facility]2018-06-10 08:29:00 Test Item Value Reference Range Interpretation Comments Creatinine Lvl (test code = Creatinine 8.40 0.50-1.40 Lvl) [facility]2018-06-10 08:29:00 Test Item Value Reference Range Interpretation Comments Chloride Lvl (test code = Chloride Lvl) 97 95-109 [facility]2018-06-10 08:29:00 Test Item Value Reference Range Interpretation Comments Alk Phos (test code = Alk Phos) 104 39-136 [facility]2018-06-10 08:29:00 Test Item Value Reference Range Interpretation Comments Albumin Lvl (test code = Albumin Lvl) 2.7 3.5-5.0 [facility]2018-06-10 08:29:00 Test Item Value Reference Range Interpretation Comments Total Protein (test code = Total 6.9 6.4-8.4 Protein) [facility]2018-06-10 08:29:00 Test Item Value Reference Range Interpretation Comments Calcium Lvl (test code = Calcium Lvl) 8.0 8.5-10.5 [facility]2018-06-10 08:29:00 Test Item Value Reference Range Interpretation Comments CO2 (test code = CO2) 26 24-32 [facility]2018-06-10 08:29:00 Test Item Value Reference Range Interpretation Comments AST (test code = AST) 9 See_Comment [Auto mated message] The system which ge nerated this result transmit emerson reference range : <=37. The reference range was not used to interpr et this result as erinn l/abnormal. [place] 362648-06-10 08:29:00 Test Item Value Reference Range Interpretation Comments ALT (test code = ALT) 12 See_Comment [Auto mated message] The system which ge nerated this result transmit emerson reference range : <=65. The reference range was not used to interpr et this result as erinn l/abnormal. [place] 362648-06-10 08:29:00 Test Item Value Reference Range Interpretation Comments B/C Ratio (test code = B/C Ratio) 6 1 6-25 [place] 362648-06-10 08:29:00 Test Item Value Reference Range Interpretation Comments AGAP (test code = AGAP) 14.0 10.0-20.0 [place] 362648-06-10 08:29:00 Test Item Value Reference Range Interpretation Comments Globulin (test code = Globulin) 4.2 2.7-4.2 [place] 362648-06-10 08:29:00 Test Item Value Reference Range Interpretation Comments A/G Ratio (test code = A/G Ratio) 0.6 1 0.7-1.6 [place] 362648-06-10 08:29:00 Test Item Value Reference Range Interpretation Comments Phosphorus (test code = Phosphorus) 5.7 2.5-4.5 [place] 101438-06-10 08:29:00 Test Item Value Reference Range Interpretation Comments INR (test code = INR) 1.23 1 0.85-1.17 [place] [address]-06-10 08:29:00 Test Item Value Reference Range Interpretation Comments PTT (test code = PTT) 42.0 s 22.9-35.8 [place] [address]-06-10 08:29:00 Test Item Value Reference Range Interpretation Comments PT (test code = PT) 15.6 s 12.0-14.7 [place] 101438-06-10 08:29:00 Test Item Value Reference Range Interpretation Comments Microcyte (test code = 1+ *ABN*(03/18/18 Microcyte) 3:29 AM) [facility] CenterTqubpjiDRYBUMQDXF3636-25-36 08:29:00 Test Item Value Reference Range Interpretation Comments Monocytes # (test code 1.0 See_Comment [Aut omated message] The = Monocytes #) system which generated this result tra nsmitted reference range : <=0.8. The reference r yared was not used to int erpret this result as normal/abnormal . [facility] CenterRxicrwrXQXOOYXSGQ0637-49-97 08:29:00 Test Item Value Reference Range Interpretation Comments Eosinophils # (test code 0.1 See_Comment [A utomated message] The = Eosinophils #) system whic h generated this result tra nsmitted reference range : <=0.5. The reference r yared was not used to int erpret this result as normal/abnormal . [facility] CenterBcgshmvYILDPAACSG3786-53-31 08:29:00 Test Item Value Reference Range Interpretation Comments Lymphocytes # (test code = Lymphocytes 0.9 1.0-5.5 #) [facility] CenterSstwrwnDPNGJLHHIX3751-45-60 08:29:00 Test Item Value Reference Range Interpretation Comments Segs-Bands # (test code = Segs-Bands #) 5.0 1.5-8.1 [facility] CenterDtypsrzCRXBXNNOMZ9340-79-94 08:29:00 Test Item Value Reference Range Interpretation Comments Eosinophils (test code = 1.6 See_Comment [A utomated message] The Eosinophils) system which ge nerated this result tra nsmitted reference range : <=4.0. The reference r yared was not used to int erpret this result as normal/abnormal . [facility] CenterGrsqshwSRDJGGZABN9168-23-12 08:29:00 Test Item Value Reference Range Interpretation Comments Lymphocytes (test code = Lymphocytes) 13.3 20.0-40.0 [facility] CenterWkufotuZBMUIRAIIP2074-00-90 08:29:00 Test Item Value Reference Range Interpretation Comments Basophils (test code = 0.5 See_Comment [Aut omated message] The Basophils) system which ge nerated this result tra nsmitted reference range : <=1.0. The reference r yared was not used to int erpret this result as normal/abnormal . [facility] CenterPmpalasEJJEZANCSZ7185-70-49 08:29:00 Test Item Value Reference Range Interpretation Comments Monocytes (test code = Monocytes) 13.9 2.0-12.0 [facility] CenterUpizzotAGZNCHKPFP3945-70-82 08:29:00 Test Item Value Reference Range Interpretation Comments Segs (test code = Segs) 70.7 45.0-75.0 [facility] CenterPapgfnaXUUYYDYSYZ7240-48-04 08:29:00 Test Item Value Reference Range Interpretation Comments Platelet (test code = Platelet) 217 133-450 [facility] CenterJozrvzeOKTMTSTNQV2376-53-99 08:29:00 Test Item Value Reference Range Interpretation Comments MPV (test code = MPV) 7.9 7.4-10.4 [facility] CenterYqfqpljZFNNSQBQCI1659-23-63 08:29:00 Test Item Value Reference Range Interpretation Comments MCHC (test code = MCHC) 33.8 32.0-36.0 [facility] CenterCgqdjzxTZWGFYWKXB2943-73-41 08:29:00 Test Item Value Reference Range Interpretation Comments RDW (test code = RDW) 15.0 11.5-14.5 [facility] CenterOetxupgHCVVKRKTCG6586-74-06 08:29:00 Test Item Value Reference Range Interpretation Comments Hct (test code = Hct) 21.8 42.0-54.0 [facility] CenterQtzfrxpLQRNAQDWGP5745-35-28 08:29:00 Test Item Value Reference Range Interpretation Comments MCV (test code = MCV) 77.9 80.0-94.0 [facility] CenterUowmughAIIBVIWNGC7479-99-55 08:29:00 Test Item Value Reference Range Interpretation Comments MCH (test code = MCH) 26.3 pg 27.0-31.0 [facility] CenterBonsltvLSTFWKRJTA5218-71-34 08:29:00 Test Item Value Reference Range Interpretation Comments RBC (test code = RBC) 2.80 4.70-6.10 [facility] CenterIbxpmtyJGAOWGZHEL8186-04-43 08:29:00 Test Item Value Reference Range Interpretation Comments Hgb (test code = Hgb) 7.4 14.0-18.0 [facility] CenterOcrdwqjVIIJMIDZXK0575-37-68 08:29:00 Test Item Value Reference Range Interpretation Comments WBC (test code = WBC) 7.1 3.7-10.4 [place] [id number] 21:57:00 Test Item Value Reference Range Interpretation Comments Vanco Lvl (test code = Vanco Lvl) 18.3 [facility]neCOYNSLADTZ7573-69-71 21:57:00 Test Item Value Reference Range Interpretation Comments Vanco Lvl (test code = Vanco Lvl) 18.3 [place] 46386018-06-09 21:57:00 Test Item Value Reference Range Interpretation Comments Vanco Lvl (test code = Vanco Lvl) 18.3 [place] [id number] 21:57:00 Test Item Value Reference Range Interpretation Comments Vanco Lvl (test code = Vanco Lvl) 18.3 [facility]2018-06-09 13:00:00 Test Item Value Reference Range Interpretation Comments Lactic Acid Lvl (test code = Lactic 0.3 0.5-2.2 Acid Lvl) [facility]ZLKKWAXQF1329-19-35 13:00:00 Test Item Value Reference Range Interpretation Comments Hep Bs Ag (test code Negative *NA*(03/17/18 = Hep Bs Ag) 8:00 AM) [facility]2018-06-09 13:00:00 Test Item Value Reference Range Interpretation Comments Lactic Acid Lvl (test code = Lactic 0.3 0.5-2.2 Acid Lvl) [facility] HospitalJcirociISDOYTXOSB7687-29-43 13:00:00 Test Item Value Reference Range Interpretation Comments Hep Bs Ag (test code Negative *NA*(03/17/18 = Hep Bs Ag) 8:00 AM) [facility]2018-06-09 13:00:00 Test Item Value Reference Range Interpretation Comments Lactic Acid Lvl (test code = Lactic 0.3 0.5-2.2 Acid Lvl) [facility] HospitalAttlwfrDPNZBCAPMK2957-28-40 13:00:00 Test Item Value Reference Range Interpretation Comments Hep Bs Ag (test code Negative *NA*(03/17/18 = Hep Bs Ag) 8:00 AM) [facility]2018-06-09 13:00:00 Test Item Value Reference Range Interpretation Comments Lactic Acid Lvl (test code = Lactic 0.3 0.5-2.2 Acid Lvl) [facility] HospitalLxtgjtuTIODHNBPNQ1819-76-28 13:00:00 Test Item Value Reference Range Interpretation Comments Hep Bs Ag (test code Negative *NA*(03/17/18 = Hep Bs Ag) 8:00 AM) [facility]2018-06-09 11:05:00 Test Item Value Reference Range Interpretation Comments Lactic Acid Lvl (test code = Lactic 0.3 0.5-2.2 Acid Lvl) [facility]Your[facility] [id number] 11:05:00 Test Item Value Reference Range Interpretation Comments Lactic Acid Lvl (test code = Lactic 0.3 0.5-2.2 Acid Lvl) [facility]Your[facility] LLUDX5930-71-85 11:05:00 Test Item Value Reference Range Interpretation Comments Lactic Acid Lvl (test code = Lactic 0.3 0.5-2.2 Acid Lvl) [facility]Pee[facility] [id number] 11:05:00 Test Item Value Reference Range Interpretation Comments Lactic Acid Lvl (test code = Lactic 0.3 0.5-2.2 Acid Lvl) [facility] HospitalCARJauntAC [id number] 08:09:00 Test Item Value Reference Range Interpretation Comments CK MB Index (test 1.2 1 See_Comment [Automate d message] The code = CK MB Index) system w [facility] generated this result transmit emerson reference range : <=2.5. The reference range was not used to interpr et this result as erinn l/abnormal. [facility] HospitalGeelbe YYTSSOX7186-81-15 08:09:00 Test Item Value Reference Range Interpretation Comments Total CK (test code = Total CK) 122 12-191 [facility] HospitalLizhi VZAVDKT8494-26-14 08:09:00 Test Item Value Reference Range Interpretation Comments proBNP (test code = 59010 See_Comment [Automa emerson message] The proBNP) system which ge nerated this result tra nsmitted reference range : <=125. The reference r yared was not used to int erpret this result as erinn l/abnormal. [facility] HospitalCourseloadCARBnooki GOVMYDO7852-00-24 08:09:00 Test Item Value Reference Range Interpretation Comments CK MB (test code = CK MB) 1.5 0.5-3.6 [facility] HospitalGeelbe MDNWPNN3226-30-23 08:09:00 Test Item Value Reference Range Interpretation Comments Troponin-I (test code no gt See_Comment [Auto mated message] The = Troponin-I) system which g enerated this result transmit emerson reference range : <=0.40. The reference r yared was not used to interpr et this result as erinn l/abnormal. [facility]2018-06-09 08:09:00 Test Item Value Reference Range Interpretation Comments Ammonia (test code = Ammonia) 33.0 [facility]2018-06-09 08:09:00 Test Item Value Reference Range Interpretation Comments eGFR (test code = eGFR) 4 [facility]2018-06-09 08:09:00 Test Item Value Reference Range Interpretation Comments Alk Phos (test code = Alk Phos) 89 39-136 [facility]2018-06-09 08:09:00 Test Item Value Reference Range Interpretation Comments Chloride Lvl (test code = Chloride Lvl) 93 95-109 [facility]2018-06-09 08:09:00 Test Item Value Reference Range Interpretation Comments Globulin (test code = Globulin) 4.1 2.7-4.2 [place] 362648-06-09 08:09:00 Test Item Value Reference Range Interpretation Comments A/G Ratio (test code = A/G Ratio) 0.7 1 0.7-1.6 [place] 362648-06-09 08:09:00 Test Item Value Reference Range Interpretation Comments B/C Ratio (test code = B/C Ratio) 7 1 6-25 [place] 362648-06-09 08:09:00 Test Item Value Reference Range Interpretation Comments AGAP (test code = AGAP) 20.4 10.0-20.0 [place] 362648-06-09 08:09:00 Test Item Value Reference Range Interpretation Comments Bili Total (test code = Bili Total) 0.4 0.2-1.3 [place] 362648-06-09 08:09:00 Test Item Value Reference Range Interpretation Comments AST (test code = AST) 11 See_Comment [Auto mated message] The system which ge nerated this result transmit emerson reference range : <=37. The reference range was not used to interpr et this result as erinn l/abnormal. [place] 362648-06-09 08:09:00 Test Item Value Reference Range Interpretation Comments ALT (test code = ALT) 10 See_Comment [Auto mated message] The system which ge nerated this result transmit emerson reference range : <=65. The reference range was not used to interpr et this result as erinn l/abnormal. [facility]2018-06-09 08:09:00 Test Item Value Reference Range Interpretation Comments Albumin Lvl (test code = Albumin Lvl) 2.7 3.5-5.0 [place] 362648-06-09 08:09:00 Test Item Value Reference Range Interpretation Comments CO2 (test code = CO2) 21 24-32 [facility]2018-06-09 08:09:00 Test Item Value Reference Range Interpretation Comments Total Protein (test code = Total 6.8 6.4-8.4 Protein) [facility]2018-06-09 08:09:00 Test Item Value Reference Range Interpretation Comments Calcium Lvl (test code = Calcium Lvl) 7.5 8.5-10.5 [facility]2018-06-09 08:09:00 Test Item Value Reference Range Interpretation Comments Sodium Lvl (test code = Sodium Lvl) 130 135-145 [facility]2018-06-09 08:09:00 Test Item Value Reference Range Interpretation Comments Potassium Lvl (test code = Potassium 4.4 3.5-5.1 Lvl) [facility]2018-06-09 08:09:00 Test Item Value Reference Range Interpretation Comments Creatinine Lvl (test code = Creatinine 12.50 0.50-1.40 Lvl) [place] 362648-06-09 08:09:00 Test Item Value Reference Range Interpretation Comments BUN (test code = BUN) 85 7-22 [facility]2018-06-09 08:09:00 Test Item Value Reference Range Interpretation Comments Glucose Lvl (test code = Glucose Lvl) 172 70-99 [facility]2018-06-09 08:09:00 Test Item Value Reference Range Interpretation Comments Magnesium Lvl (test code = Magnesium 1.9 1.8-2.4 Lvl) [facility]2018-06-09 08:09:00 Test Item Value Reference Range Interpretation Comments Lipase Lvl (test code = Lipase Lvl) 65 73-393 [place] 362648-06-09 08:09:00 Test Item Value Reference Range Interpretation Comments Phosphorus (test code = Phosphorus) 7.5 2.5-4.5 [facility] CenterIfgmfniWDCJXQQTKM6490-04-64 08:09:00 Test Item Value Reference Range Interpretation Comments Monocytes # (test code 0.8 See_Comment [Aut omated message] The = Monocytes #) system which generated this result tra nsmitted reference range : <=0.8. The reference r yared was not used to int erpret this result as normal/abnormal . [facility] CenterCvcxdatJSWVNVIXOZ6983-31-42 08:09:00 Test Item Value Reference Range Interpretation Comments Eosinophils (test code = 0.5 See_Comment [A utomated message] The Eosinophils) system which ge nerated this result tra nsmitted reference range : <=4.0. The reference r yared was not used to int erpret this result as normal/abnormal . [facility] CenterOkoaigfLLGMGQDUOG4650-52-31 08:09:00 Test Item Value Reference Range Interpretation Comments Lymphocytes # (test code = Lymphocytes 0.7 1.0-5.5 #) [facility] CenterEefmcjqUCMHLGVKJZ1262-11-96 08:09:00 Test Item Value Reference Range Interpretation Comments Basophils (test code = 0.5 See_Comment [Aut omated message] The Basophils) system which ge nerated this result tra nsmitted reference range : <=1.0. The reference r yared was not used to int erpret this result as normal/abnormal . [facility]QgirygaYNPPUVSXUS1189-10-51 08:09:00 Test Item Value Reference Range Interpretation Comments Segs-Bands # (test code = Segs-Bands #) 7.4 1.5-8.1 [facility] CenterRrtidmkPILDCJYHDR8632-72-55 08:09:00 Test Item Value Reference Range Interpretation Comments Microcyte (test code = 1+ *ABN*(03/17/18 3:09 Microcyte) AM) [facility] CenterGjabkpxPSWMHVGWGT6777-01-16 08:09:00 Test Item Value Reference Range Interpretation Comments Lymphocytes (test code = Lymphocytes) 7.7 20.0-40.0 [facility] CenterNhhaqulJQHLCULMMW2488-65-02 08:09:00 Test Item Value Reference Range Interpretation Comments Monocytes (test code = Monocytes) 9.3 2.0-12.0 [facility] CenterWztqclnHTTRLSHVJB0751-04-45 08:09:00 Test Item Value Reference Range Interpretation Comments Segs (test code = Segs) 82.0 45.0-75.0 [facility] CenterNwsxkunEHEVMVMDCI7095-59-47 08:09:00 Test Item Value Reference Range Interpretation Comments INR (test code = INR) 1.26 1 0.85-1.17 [facility] CenterYozknwnDRRQFBTKMX4942-02-82 08:09:00 Test Item Value Reference Range Interpretation Comments PT (test code = PT) 15.9 s 12.0-14.7 [facility] CenterUnuwfovNEZNMNXYFE5031-10-01 08:09:00 Test Item Value Reference Range Interpretation Comments MCH (test code = MCH) 26.4 pg 27.0-31.0 [facility] CenterTxlgxerKXMUWPNEAF2699-78-32 08:09:00 Test Item Value Reference Range Interpretation Comments MCV (test code = MCV) 77.8 80.0-94.0 [facility] CenterKcxtxybNJRSMTOLNN9959-73-22 08:09:00 Test Item Value Reference Range Interpretation Comments Hct (test code = Hct) 22.2 42.0-54.0 [facility] CenterCimlmjdDRZQOHBZUX6335-01-09 08:09:00 Test Item Value Reference Range Interpretation Comments Hgb (test code = Hgb) 7.5 14.0-18.0 [facility] CenterNvprmjgXGWRSURHHL5070-32-23 08:09:00 Test Item Value Reference Range Interpretation Comments WBC (test code = WBC) 9.0 3.7-10.4 [facility] CenterDziwjwuOCOVLFSBMZ2908-72-54 08:09:00 Test Item Value Reference Range Interpretation Comments RBC (test code = RBC) 2.86 4.70-6.10 [facility] CenterTwybvezIRQYUQICEP4763-66-40 08:09:00 Test Item Value Reference Range Interpretation Comments MPV (test code = MPV) 7.4 7.4-10.4 [facility] CenterRuyiqxkYNAJGOZPEJ2395-44-90 08:09:00 Test Item Value Reference Range Interpretation Comments Platelet (test code = Platelet) 220 133-450 [facility] CenterGayqjvxVIGXNETAKT3561-01-83 08:09:00 Test Item Value Reference Range Interpretation Comments RDW (test code = RDW) 15.1 11.5-14.5 [facility] CenterDmlzzoaQMROQVNQQJ2748-07-19 08:09:00 Test Item Value Reference Range Interpretation Comments MCHC (test code = MCHC) 34.0 32.0-36.0 [facility]PremiseKMFXRNB5067-25-62 08:09:00 Test Item Value Reference Range Interpretation Comments CK MB Index (test 1.2 1 See_Comment [Automate d message] The code = CK MB Index) system w hich generated this result transmit emerson reference range : <=2.5. The reference range was not used to interpr et this result as erinn l/abnormal. [facility] [employer] [place]2018-06-09 08:09:00 Test Item Value Reference Range Interpretation Comments Total CK (test code = Total CK) 122 12-191 [facility]:09[facility]00 Test Item Value Reference Range Interpretation Comments proBNP (test code = 33839 See_Comment [Automa emerson message] The proBNP) system which ge nerated this result tra nsmitted reference range : <=125. The reference r yared was not used to int erpret this result as erinn l/abnormal. [facility] [employer]2018-06-09 08:09:00 Test Item Value Reference Range Interpretation Comments CK MB (test code = CK MB) 1.5 0.5-3.6 [facility] [employer] [place]2018-06-09 08:09:00 Test Item Value Reference Range Interpretation Comments Troponin-I (test code no gt See_Comment [Auto mated message] The = Troponin-I) system which g enerated this result transmit emerson reference range : <=0.40. The reference r yared was not used to interpr et this result as erinn l/abnormal. [facility] [employer]2018-06-09 08:09:00 Test Item Value Reference Range Interpretation Comments Ammonia (test code = Ammonia) 33.0 [facility] [employer]2018-06-09 08:09:00 Test Item Value Reference Range Interpretation Comments eGFR (test code = eGFR) 4 [facility] [employer]2018-06-09 08:09:00 Test Item Value Reference Range Interpretation Comments Alk Phos (test code = Alk Phos) 89 39-136 [facility] [employer]2018-06-09 08:09:00 Test Item Value Reference Range Interpretation Comments Chloride Lvl (test code = Chloride Lvl) 93 95-109 [facility] [employer]2018-06-09 08:09:00 Test Item Value Reference Range Interpretation Comments Globulin (test code = Globulin) 4.1 2.7-4.2 [facility]2018-06-09 08:09:00 Test Item Value Reference Range Interpretation Comments A/G Ratio (test code = A/G Ratio) 0.7 1 0.7-1.6 [facility]2018-06-09 08:09:00 Test Item Value Reference Range Interpretation Comments B/C Ratio (test code = B/C Ratio) 7 1 6-25 [facility]2018-06-09 08:09:00 Test Item Value Reference Range Interpretation Comments AGAP (test code = AGAP) 20.4 10.0-20.0 [facility]2018-06-09 08:09:00 Test Item Value Reference Range Interpretation Comments Bili Total (test code = Bili Total) 0.4 0.2-1.3 [facility]2018-06-09 08:09:00 Test Item Value Reference Range Interpretation Comments AST (test code = AST) 11 See_Comment [Auto mated message] The system which ge nerated this result transmit emerson reference range : <=37. The reference range was not used to interpr et this result as erinn l/abnormal. [facility]2018-06-09 08:09:00 Test Item Value Reference Range Interpretation Comments ALT (test code = ALT) 10 See_Comment [Auto mated message] The system which ge nerated this result transmit emerson reference range : <=65. The reference range was not used to interpr et this result as erinn l/abnormal. [facility]2018-06-09 08:09:00 Test Item Value Reference Range Interpretation Comments Albumin Lvl (test code = Albumin Lvl) 2.7 3.5-5.0 [facility]2018-06-09 08:09:00 Test Item Value Reference Range Interpretation Comments CO2 (test code = CO2) 21 24-32 [facility]2018-06-09 08:09:00 Test Item Value Reference Range Interpretation Comments Total Protein (test code = Total 6.8 6.4-8.4 Protein) [facility]2018-06-09 08:09:00 Test Item Value Reference Range Interpretation Comments Calcium Lvl (test code = Calcium Lvl) 7.5 8.5-10.5 [place]648-06-09 08:09:00 Test Item Value Reference Range Interpretation Comments Sodium Lvl (test code = Sodium Lvl) 130 135-145 [facility]2018-06-09 08:09:00 Test Item Value Reference Range Interpretation Comments Potassium Lvl (test code = Potassium 4.4 3.5-5.1 Lvl) [facility]2018-06-09 08:09:00 Test Item Value Reference Range Interpretation Comments Creatinine Lvl (test code = Creatinine 12.50 0.50-1.40 Lvl) [place] 362648-06-09 08:09:00 Test Item Value Reference Range Interpretation Comments BUN (test code = BUN) 85 7-22 [place] 362648-06-09 08:09:00 Test Item Value Reference Range Interpretation Comments Glucose Lvl (test code = Glucose Lvl) 172 70-99 [place] 362648-06-09 08:09:00 Test Item Value Reference Range Interpretation Comments Magnesium Lvl (test code = Magnesium 1.9 1.8-2.4 Lvl) [place] 362648-06-09 08:09:00 Test Item Value Reference Range Interpretation Comments Lipase Lvl (test code = Lipase Lvl) 65 73-393 [place] 362648-06-09 08:09:00 Test Item Value Reference Range Interpretation Comments Phosphorus (test code = Phosphorus) 7.5 2.5-4.5 [facility] CenterKizpdmlTLVRSWZKYC9709-83-44 08:09:00 Test Item Value Reference Range Interpretation Comments Monocytes # (test code 0.8 See_Comment [Aut omated message] The = Monocytes #) system which generated this result tra nsmitted reference range : <=0.8. The reference r yared was not used to int erpret this result as normal/abnormal . [facility] CenterIaomieaHVGEFQWFZG3529-60-17 08:09:00 Test Item Value Reference Range Interpretation Comments Eosinophils (test code = 0.5 See_Comment [A utomated message] The Eosinophils) system which ge nerated this result tra nsmitted reference range : <=4.0. The reference r yared was not used to int erpret this result as normal/abnormal . [place] 101438-06-09 08:09:00 Test Item Value Reference Range Interpretation Comments Lymphocytes # (test code = Lymphocytes 0.7 1.0-5.5 #) [facility] CenterZbjbfyePPWGIBRXMD3169-64-21 08:09:00 Test Item Value Reference Range Interpretation Comments Basophils (test code = 0.5 See_Comment [Aut omated message] The Basophils) system which ge nerated this result tra nsmitted reference range : <=1.0. The reference r yared was not used to int erpret this result as normal/abnormal . [facility] CenterHtwnsqhOSCMRGVRRQ0273-34-59 08:09:00 Test Item Value Reference Range Interpretation Comments Segs-Bands # (test code = Segs-Bands #) 7.4 1.5-8.1 [facility] CenterHvbclvgTADRNZNRMP0048-69-33 08:09:00 Test Item Value Reference Range Interpretation Comments Microcyte (test code = 1+ *ABN*(03/17/18 3:09 Microcyte) AM) [facility] CenterKcmgchzECUADJWRUL1557-73-05 08:09:00 Test Item Value Reference Range Interpretation Comments Lymphocytes (test code = Lymphocytes) 7.7 20.0-40.0 [facility] CenterCiornznWBIWIFOXVS1876-39-67 08:09:00 Test Item Value Reference Range Interpretation Comments Monocytes (test code = Monocytes) 9.3 2.0-12.0 [facility] CenterYzdonxrMECVXHUGXM2899-40-70 08:09:00 Test Item Value Reference Range Interpretation Comments Segs (test code = Segs) 82.0 45.0-75.0 [facility] CenterBjuikbvUTTJDLWAHX5054-46-85 08:09:00 Test Item Value Reference Range Interpretation Comments INR (test code = INR) 1.26 1 0.85-1.17 [facility] CenterSyocisaAAVODMATYZ0525-37-20 08:09:00 Test Item Value Reference Range Interpretation Comments PT (test code = PT) 15.9 s 12.0-14.7 [facility] CenterCalfmkzDDOZFQDCIC3496-70-86 08:09:00 Test Item Value Reference Range Interpretation Comments MCH (test code = MCH) 26.4 pg 27.0-31.0 [facility] CenterUjjfjfxXZKFQUEZLA2050-51-21 08:09:00 Test Item Value Reference Range Interpretation Comments MCV (test code = MCV) 77.8 80.0-94.0 [facility] CenterSyhbvgnMMGBTGHBBM4380-63-58 08:09:00 Test Item Value Reference Range Interpretation Comments Hct (test code = Hct) 22.2 42.0-54.0 [facility]KkmjehcTFPZBDWUSM0421-77-98 08:09:00 Test Item Value Reference Range Interpretation Comments Hgb (test code = Hgb) 7.5 14.0-18.0 [facility] CenterUztjeocRESOYFGRXE3362-91-79 08:09:00 Test Item Value Reference Range Interpretation Comments WBC (test code = WBC) 9.0 3.7-10.4 [facility] HospitalZqtszgiYEQFGWIEUI6265-30-72 08:09:00 Test Item Value Reference Range Interpretation Comments RBC (test code = RBC) 2.86 4.70-6.10 [facility] HospitalOdpxnfdVPXQOATHBT3241-12-69 08:09:00 Test Item Value Reference Range Interpretation Comments MPV (test code = MPV) 7.4 7.4-10.4 [facility] CenterFuxujauSFBBIADWPI7968-54-78 08:09:00 Test Item Value Reference Range Interpretation Comments Platelet (test code = Platelet) 220 133-450 [facility] HospitalWbhmpwbBQHZZFNXVV0055-13-61 08:09:00 Test Item Value Reference Range Interpretation Comments RDW (test code = RDW) 15.1 11.5-14.5 [facility] HospitalCynngdpYDFZAFMMBV6338-00-79 08:09:00 Test Item Value Reference Range Interpretation Comments MCHC (test code = MCHC) 34.0 32.0-36.0 [facility] JSUWUEJ9446-97-46 08:09:00 Test Item Value Reference Range Interpretation Comments CK MB Index (test 1.2 1 See_Comment [Automate d message] The code = CK MB Index) system w [facility] generated this result transmit emerson reference range : <=2.5. The reference range was not used to interpr et this result as erinn l/abnormal. [facility] RWZVVZA0864-69-97 08:09:00 Test Item Value Reference Range Interpretation Comments Total CK (test code = Total CK) 122 12-191 [facility] ZRVTIOL5065-20-02 08:09:00 Test Item Value Reference Range Interpretation Comments proBNP (test code = 02887 See_Comment [Automa emerson message] The proBNP) system which ge nerated this result tra nsmitted reference range : <=125. The reference r yared was not used to int erpret this result as erinn l/abnormal. [facility] HospitalCourseloadCARJauntAC SHHIEHA2347-09-82 08:09:00 Test Item Value Reference Range Interpretation Comments CK MB (test code = CK MB) 1.5 0.5-3.6 [facility]CARJauntAC KELCWTO7972-27-06 08:09:00 Test Item Value Reference Range Interpretation Comments Troponin-I (test code no gt See_Comment [Auto mated message] The = Troponin-I) system which g enerated this result transmit emerson reference range : <=0.40. The reference r yared was not used to interpr et this result as erinn l/abnormal. [facility] [employer] [id number] 08:09:00 Test Item Value Reference Range Interpretation Comments Ammonia (test code = Ammonia) 33.0 [facility] [employer] IFQNA2803-15-30 08:09:00 Test Item Value Reference Range Interpretation Comments eGFR (test code = eGFR) 4 [facility] [employer] [id number] 08:09:00 Test Item Value Reference Range Interpretation Comments Alk Phos (test code = Alk Phos) 89 39-136 [facility] [employer] LGBCX5823-16-75 08:09:00 Test Item Value Reference Range Interpretation Comments Chloride Lvl (test code = Chloride Lvl) 93 95-109 [facility] [employer] FTRGD6148-47-70 08:09:00 Test Item Value Reference Range Interpretation Comments Globulin (test code = Globulin) 4.1 2.7-4.2 [facility] [employer] [id number] 08:09:00 Test Item Value Reference Range Interpretation Comments A/G Ratio (test code = A/G Ratio) 0.7 1 0.7-1.6 [facility] [employer] JMQCZ1710-59-68 08:09:00 Test Item Value Reference Range Interpretation Comments B/C Ratio (test code = B/C Ratio) 7 1 6-25 [facility] [employer] PRZLY5510-72-35 08:09:00 Test Item Value Reference Range Interpretation Comments AGAP (test code = AGAP) 20.4 10.0-20.0 [facility] [employer] [id number] 08:09:00 Test Item Value Reference Range Interpretation Comments Bili Total (test code = Bili Total) 0.4 0.2-1.3 [facility]2018-06-09 08:09:00 Test Item Value Reference Range Interpretation Comments AST (test code = AST) 11 See_Comment [Auto mated message] The system which ge nerated this result transmit emerson reference range : <=37. The reference range was not used to interpr et this result as erinn l/abnormal. [facility]2018-06-09 08:09:00 Test Item Value Reference Range Interpretation Comments ALT (test code = ALT) 10 See_Comment [Auto mated message] The system which ge nerated this result transmit emerson reference range : <=65. The reference range was not used to interpr et this result as erinn l/abnormal. [place] 362648-06-09 08:09:00 Test Item Value Reference Range Interpretation Comments Albumin Lvl (test code = Albumin Lvl) 2.7 3.5-5.0 [place] 362648-06-09 08:09:00 Test Item Value Reference Range Interpretation Comments CO2 (test code = CO2) 21 24-32 [place] 362648-06-09 08:09:00 Test Item Value Reference Range Interpretation Comments Total Protein (test code = Total 6.8 6.4-8.4 Protein) [facility]2018-06-09 08:09:00 Test Item Value Reference Range Interpretation Comments Calcium Lvl (test code = Calcium Lvl) 7.5 8.5-10.5 [facility]2018-06-09 08:09:00 Test Item Value Reference Range Interpretation Comments Sodium Lvl (test code = Sodium Lvl) 130 135-145 [facility]2018-06-09 08:09:00 Test Item Value Reference Range Interpretation Comments Potassium Lvl (test code = Potassium 4.4 3.5-5.1 Lvl) [place] 362648-06-09 08:09:00 Test Item Value Reference Range Interpretation Comments Creatinine Lvl (test code = Creatinine 12.50 0.50-1.40 Lvl) [facility]2018-06-09 08:09:00 Test Item Value Reference Range Interpretation Comments BUN (test code = BUN) 85 7-22 [place] 362648-06-09 08:09:00 Test Item Value Reference Range Interpretation Comments Glucose Lvl (test code = Glucose Lvl) 172 70-99 [facility]2018-06-09 08:09:00 Test Item Value Reference Range Interpretation Comments Magnesium Lvl (test code = Magnesium 1.9 1.8-2.4 Lvl) [facility]2018-06-09 08:09:00 Test Item Value Reference Range Interpretation Comments Lipase Lvl (test code = Lipase Lvl) 65 73-393 [facility]2018-06-09 08:09:00 Test Item Value Reference Range Interpretation Comments Phosphorus (test code = Phosphorus) 7.5 2.5-4.5 [facility] CenterSciqrjxXSUNRNWDKV0700-43-93 08:09:00 Test Item Value Reference Range Interpretation Comments Monocytes # (test code 0.8 See_Comment [Aut omated message] The = Monocytes #) system which generated this result tra nsmitted reference range : <=0.8. The reference r yared was not used to int erpret this result as normal/abnormal . [facility] CenterRrvbczyUDGZAPOCHS2117-42-53 08:09:00 Test Item Value Reference Range Interpretation Comments Eosinophils (test code = 0.5 See_Comment [A utomated message] The Eosinophils) system which ge nerated this result tra nsmitted reference range : <=4.0. The reference r yared was not used to int erpret this result as normal/abnormal . [facility] CenterKhwnhghJCFDBIGZEV3394-89-74 08:09:00 Test Item Value Reference Range Interpretation Comments Lymphocytes # (test code = Lymphocytes 0.7 1.0-5.5 #) [facility] CenterCydapxrARSZLUKXDR5524-83-66 08:09:00 Test Item Value Reference Range Interpretation Comments Basophils (test code = 0.5 See_Comment [Aut omated message] The Basophils) system which ge nerated this result tra nsmitted reference range : <=1.0. The reference r yared was not used to int erpret this result as normal/abnormal . [facility] CenterWpfzeevCIQNHYAFWD6222-18-51 08:09:00 Test Item Value Reference Range Interpretation Comments Segs-Bands # (test code = Segs-Bands #) 7.4 1.5-8.1 [facility] CenterUlffmsbSHKXBOWSOQ5043-49-08 08:09:00 Test Item Value Reference Range Interpretation Comments Microcyte (test code = 1+ *ABN*(03/17/18 3:09 Microcyte) AM) [facility] CenterAtoisazFYRLRRGVCU8568-92-25 08:09:00 Test Item Value Reference Range Interpretation Comments Lymphocytes (test code = Lymphocytes) 7.7 20.0-40.0 [facility] CenterJrtkyphYQSISTHCZD8839-11-82 08:09:00 Test Item Value Reference Range Interpretation Comments Monocytes (test code = Monocytes) 9.3 2.0-12.0 [facility] CenterIpwatokVZRPSENZRH8552-30-16 08:09:00 Test Item Value Reference Range Interpretation Comments Segs (test code = Segs) 82.0 45.0-75.0 [facility] CenterLcquzsjVOIIIGRZCN2098-21-16 08:09:00 Test Item Value Reference Range Interpretation Comments INR (test code = INR) 1.26 1 0.85-1.17 [facility] CenterCarafurJWEDKVZIZI7079-23-78 08:09:00 Test Item Value Reference Range Interpretation Comments PT (test code = PT) 15.9 s 12.0-14.7 [facility] CenterXubticeVRRATIQYLM5979-88-63 08:09:00 Test Item Value Reference Range Interpretation Comments MCH (test code = MCH) 26.4 pg 27.0-31.0 [facility] CenterIwhoeakUPFMKODAQK4902-75-60 08:09:00 Test Item Value Reference Range Interpretation Comments MCV (test code = MCV) 77.8 80.0-94.0 [facility] CenterHuqvotpDUCORRAJDZ2982-28-16 08:09:00 Test Item Value Reference Range Interpretation Comments Hct (test code = Hct) 22.2 42.0-54.0 [facility] CenterEiaikjiKUFALCWMWE4351-78-54 08:09:00 Test Item Value Reference Range Interpretation Comments Hgb (test code = Hgb) 7.5 14.0-18.0 [facility] CenterQicbhjtNNMEWBYBCM8466-96-85 08:09:00 Test Item Value Reference Range Interpretation Comments WBC (test code = WBC) 9.0 3.7-10.4 [facility] CenterElzoggpDJABFABRMF0049-63-32 08:09:00 Test Item Value Reference Range Interpretation Comments RBC (test code = RBC) 2.86 4.70-6.10 [facility] CenterAxzyjeeFODVKCYRRM0492-98-75 08:09:00 Test Item Value Reference Range Interpretation Comments MPV (test code = MPV) 7.4 7.4-10.4 [facility] HospitalMptzirfJTTVXLHHEV9231-17-61 08:09:00 Test Item Value Reference Range Interpretation Comments Platelet (test code = Platelet) 220 133-450 [facility] HospitalSypzjmsLCGZFDWKZU7991-18-76 08:09:00 Test Item Value Reference Range Interpretation Comments RDW (test code = RDW) 15.1 11.5-14.5 [facility] HospitalRzlnmrlOFOKAQDAUS2613-94-13 08:09:00 Test Item Value Reference Range Interpretation Comments MCHC (test code = MCHC) 34.0 32.0-36.0 [facility] 08:09:00 Test Item Value Reference Range Interpretation Comments CK MB Index (test 1.2 1 See_Comment [Automate d message] The code = CK MB Index) system w [facility] generated this result transmit emerson reference range : <=2.5. The reference range was not used to interpr et this result as erinn l/abnormal. [facility] 08:09:00 Test Item Value Reference Range Interpretation Comments Total CK (test code = Total CK) 122 12-191 [facility] HospitalPremiseILOBJTG6169-93-89 08:09:00 Test Item Value Reference Range Interpretation Comments proBNP (test code = 71410 See_Comment [Automa emerson message] The proBNP) system which ge nerated this result tra nsmitted reference range : <=125. The reference r yared was not used to int erpret this result as erinn l/abnormal. [facility] 08:09:00 Test Item Value Reference Range Interpretation Comments CK MB (test code = CK MB) 1.5 0.5-3.6 [facility] HospitalPremiseMGOAFRL8516-42-35 08:09:00 Test Item Value Reference Range Interpretation Comments Troponin-I (test code no gt See_Comment [Auto mated message] The = Troponin-I) system which g enerated this result transmit emerson reference range : <=0.40. The reference r yared was not used to interpr et this result as erinn l/abnormal. [facility] [employer] [id number] 08:09:00 Test Item Value Reference Range Interpretation Comments Ammonia (test code = Ammonia) 33.0 [facility] [employer] [id number] 08:09:00 Test Item Value Reference Range Interpretation Comments eGFR (test code = eGFR) 4 [facility]2018-06-09 08:09:00 Test Item Value Reference Range Interpretation Comments Alk Phos (test code = Alk Phos) 89 39-136 [facility]2018-06-09 08:09:00 Test Item Value Reference Range Interpretation Comments Chloride Lvl (test code = Chloride Lvl) 93 95-109 [facility]2018-06-09 08:09:00 Test Item Value Reference Range Interpretation Comments Globulin (test code = Globulin) 4.1 2.7-4.2 [facility]2018-06-09 08:09:00 Test Item Value Reference Range Interpretation Comments A/G Ratio (test code = A/G Ratio) 0.7 1 0.7-1.6 [place] 362648-06-09 08:09:00 Test Item Value Reference Range Interpretation Comments B/C Ratio (test code = B/C Ratio) 7 1 6-25 [place] [id number] 08:09:00 Test Item Value Reference Range Interpretation Comments AGAP (test code = AGAP) 20.4 10.0-20.0 [place] [id number] 08:09:00 Test Item Value Reference Range Interpretation Comments Bili Total (test code = Bili Total) 0.4 0.2-1.3 [facility]2018-06-09 08:09:00 Test Item Value Reference Range Interpretation Comments AST (test code = AST) 11 See_Comment [Auto mated message] The system which ge nerated this result transmit emerson reference range : <=37. The reference range was not used to interpr et this result as erinn l/abnormal. [facility]2018-06-09 08:09:00 Test Item Value Reference Range Interpretation Comments ALT (test code = ALT) 10 See_Comment [Auto mated message] The system which ge nerated this result transmit emerson reference range : <=65. The reference range was not used to interpr et this result as erinn l/abnormal. [place] [id number] 08:09:00 Test Item Value Reference Range Interpretation Comments Albumin Lvl (test code = Albumin Lvl) 2.7 3.5-5.0 [facility]2018-06-09 08:09:00 Test Item Value Reference Range Interpretation Comments CO2 (test code = CO2) 21 24-32 [facility]2018-06-09 08:09:00 Test Item Value Reference Range Interpretation Comments Total Protein (test code = Total 6.8 6.4-8.4 Protein) [facility]2018-06-09 08:09:00 Test Item Value Reference Range Interpretation Comments Calcium Lvl (test code = Calcium Lvl) 7.5 8.5-10.5 [facility]2018-06-09 08:09:00 Test Item Value Reference Range Interpretation Comments Sodium Lvl (test code = Sodium Lvl) 130 135-145 [facility]2018-06-09 08:09:00 Test Item Value Reference Range Interpretation Comments Potassium Lvl (test code = Potassium 4.4 3.5-5.1 Lvl) [facility]2018-06-09 08:09:00 Test Item Value Reference Range Interpretation Comments Creatinine Lvl (test code = Creatinine 12.50 0.50-1.40 Lvl) [facility]2018-06-09 08:09:00 Test Item Value Reference Range Interpretation Comments BUN (test code = BUN) 85 7-22 [facility]2018-06-09 08:09:00 Test Item Value Reference Range Interpretation Comments Glucose Lvl (test code = Glucose Lvl) 172 70-99 [facility]2018-06-09 08:09:00 Test Item Value Reference Range Interpretation Comments Magnesium Lvl (test code = Magnesium 1.9 1.8-2.4 Lvl) [facility]2018-06-09 08:09:00 Test Item Value Reference Range Interpretation Comments Lipase Lvl (test code = Lipase Lvl) 65 73-393 [facility]2018-06-09 08:09:00 Test Item Value Reference Range Interpretation Comments Phosphorus (test code = Phosphorus) 7.5 2.5-4.5 [facility]48[facility]:09:00 Test Item Value Reference Range Interpretation Comments Monocytes # (test code 0.8 See_Comment [Aut omated message] The = Monocytes #) system which generated this result tra nsmitted reference range : <=0.8. The reference r yared was not used to int erpret this result as normal/abnormal . [facility]vthddPCDDADVTEQ0559-73-75 [facility]:09:00 Test Item Value Reference Range Interpretation Comments Eosinophils (test code = 0.5 See_Comment [A utomated message] The Eosinophils) system which ge nerated this result tra nsmitted reference range : <=4.0. The reference r yared was not used to int erpret this result as normal/abnormal . [facility] CenterSrhjevbSUVHFOMKMB6070-06-76 08:09:00 Test Item Value Reference Range Interpretation Comments Lymphocytes # (test code = Lymphocytes 0.7 1.0-5.5 #) [facility] CenterXiazgliWIHLGLWCKP5024-78-36 08:09:00 Test Item Value Reference Range Interpretation Comments Basophils (test code = 0.5 See_Comment [Aut omated message] The Basophils) system which ge nerated this result tra nsmitted reference range : <=1.0. The reference r yared was not used to int erpret this result as normal/abnormal . [facility] CenterNxeidmgYWVXLMFFXV6600-90-77 08:09:00 Test Item Value Reference Range Interpretation Comments Segs-Bands # (test code = Segs-Bands #) 7.4 1.5-8.1 [facility] CenterSvdybxuHRVOXPJXVA6856-87-21 08:09:00 Test Item Value Reference Range Interpretation Comments Microcyte (test code = 1+ *ABN*(03/17/18 3:09 Microcyte) AM) [facility] CenterZuokitwIQMQVRQVEU4449-07-57 08:09:00 Test Item Value Reference Range Interpretation Comments Lymphocytes (test code = Lymphocytes) 7.7 20.0-40.0 [facility] CenterMinnydhFWMGZBXITL2032-45-63 08:09:00 Test Item Value Reference Range Interpretation Comments Monocytes (test code = Monocytes) 9.3 2.0-12.0 [facility] CenterDnzpnsgNSAIDBJLTB0163-53-30 08:09:00 Test Item Value Reference Range Interpretation Comments Segs (test code = Segs) 82.0 45.0-75.0 [facility] CenterIvirceoTJWJPUTIRN3556-56-79 08:09:00 Test Item Value Reference Range Interpretation Comments INR (test code = INR) 1.26 1 0.85-1.17 [facility] CenterZnnbiocKSXJBLOVQF5843-81-81 08:09:00 Test Item Value Reference Range Interpretation Comments PT (test code = PT) 15.9 s 12.0-14.7 [facility] CenterGzaxepmYMAEHQIHXQ7513-89-73 08:09:00 Test Item Value Reference Range Interpretation Comments MCH (test code = MCH) 26.4 pg 27.0-31.0 [facility] CenterFkyyfntQCISSBYPMU1418-46-04 08:09:00 Test Item Value Reference Range Interpretation Comments MCV (test code = MCV) 77.8 80.0-94.0 [facility] CenterLemglwpDDHUEQQOMY1525-90-10 08:09:00 Test Item Value Reference Range Interpretation Comments Hct (test code = Hct) 22.2 42.0-54.0 [facility] CenterJzpdvmwWSKSXMDFGU3080-97-06 08:09:00 Test Item Value Reference Range Interpretation Comments Hgb (test code = Hgb) 7.5 14.0-18.0 [facility] CenterVijxewdXXPOOIAHTJ5239-46-39 08:09:00 Test Item Value Reference Range Interpretation Comments WBC (test code = WBC) 9.0 3.7-10.4 [facility] CenterWkdynycPZFNLCBPNW5421-83-31 08:09:00 Test Item Value Reference Range Interpretation Comments RBC (test code = RBC) 2.86 4.70-6.10 [facility] CenterKvnmfdsJEOLUHTWLH0307-86-03 08:09:00 Test Item Value Reference Range Interpretation Comments MPV (test code = MPV) 7.4 7.4-10.4 [facility] CenterNocyheqMMSNXPWWXD0008-62-21 08:09:00 Test Item Value Reference Range Interpretation Comments Platelet (test code = Platelet) 220 133-450 [facility] CenterYxvefykANMRGLSFNV2093-61-86 08:09:00 Test Item Value Reference Range Interpretation Comments RDW (test code = RDW) 15.1 11.5-14.5 [facility] CenterHgohfjrPQQEHCESBZ9804-66-70 08:09:00 Test Item Value Reference Range Interpretation Comments MCHC (test code = MCHC) 34.0 32.0-36.0 [facility] VGTGNBY1613-84-28 00:37:00 Test Item Value Reference Range Interpretation Comments CK MB Index (test 1.7 1 See_Comment [Automate d message] The code = CK MB Index) system w [facility] generated this result transmit emerson reference range : <=2.5. The reference range was not used to interpr et this result as erinn l/abnormal. [facility]CARDI[facility] LCZWKVI2182-82-80 00:37:00 Test Item Value Reference Range Interpretation Comments CK MB (test code = CK MB) 2.9 0.5-3.6 [facility] HermannCARDIAC ZVYHCTO5481-25-35 00:37:00 Test Item Value Reference Range Interpretation Comments Troponin-I (test code no gt See_Comment [Auto mated message] The = Troponin-I) system which g enerated this result transmit emerson reference range : <=0.40. The reference r yared was not used to interpr et this result as erinn l/abnormal. [facility] CleanEdisonannCARDIAC [id number] 00:37:00 Test Item Value Reference Range Interpretation Comments Total CK (test code = Total CK) 166 12-191 [facility] Stream MediaCARJauntAC KWUTGNU0246-65-58 00:37:00 Test Item Value Reference Range Interpretation Comments proBNP (test code = 4827 See_Comment [Automa emerson message] The proBNP) system which ge nerated this result tra nsmitted reference range : <=125. The reference r yared was not used to int erpret this result as erinn l/abnormal. [facility] [employer] [id number] 00:37:00 Test Item Value Reference Range Interpretation Comments Magnesium Lvl (test code = Magnesium 1.9 1.8-2.4 Lvl) [facility] [employer] [id number] 00:37:00 Test Item Value Reference Range Interpretation Comments Phosphorus (test code = Phosphorus) 9.1 2.5-4.5 [facility] [employer]EdisonannYourListen[employer] FHFEI2562-12-04 00:37:00 Test Item Value Reference Range Interpretation Comments eGFR (test code = eGFR) 5 [facility] [employer]Edisonann[employer] IOGIY4213-46-93 00:37:00 Test Item Value Reference Range Interpretation Comments Alk Phos (test code = Alk Phos) 115 39-136 [facility] [employer] [id number] 00:37:00 Test Item Value Reference Range Interpretation Comments AST (test code = AST) 23 See_Comment [Auto mated message] The system which ge nerated this result transmit emerson reference range : <=37. The reference range was not used to interpr et this result as erinn l/abnormal. [facility]2018-04-17 00:37:00 Test Item Value Reference Range Interpretation Comments ALT (test code = ALT) 24 See_Comment [Auto mated message] The system which ge nerated this result transmit emerson reference range : <=65. The reference range was not used to interpr et this result as erinn l/abnormal. [facility]2018-04-17 00:37:00 Test Item Value Reference Range Interpretation Comments A/G Ratio (test code = A/G Ratio) 0.8 1 0.7-1.6 [facility]2018-04-17 00:37:00 Test Item Value Reference Range Interpretation Comments Globulin (test code = Globulin) 4.0 2.7-4.2 [facility]2018-04-17 00:37:00 Test Item Value Reference Range Interpretation Comments Bili Total (test code = Bili Total) 0.4 0.2-1.3 [facility]2018-04-17 00:37:00 Test Item Value Reference Range Interpretation Comments Potassium Lvl (test code = Potassium 4.4 3.5-5.1 Lvl) [facility]2018-04-17 00:37:00 Test Item Value Reference Range Interpretation Comments Calcium Lvl (test code = Calcium Lvl) 6.7 8.5-10.5 [facility]2018-04-17 00:37:00 Test Item Value Reference Range Interpretation Comments Sodium Lvl (test code = Sodium Lvl) 130 135-145 [facility]2018-04-17 00:37:00 Test Item Value Reference Range Interpretation Comments Creatinine Lvl (test code = Creatinine 11.00 0.50-1.40 Lvl) [facility]2018-04-17 00:37:00 Test Item Value Reference Range Interpretation Comments AGAP (test code = AGAP) 17.4 10.0-20.0 [facility]2018-04-17 00:37:00 Test Item Value Reference Range Interpretation Comments CO2 (test code = CO2) 25 24-32 [facility]2018-04-17 00:37:00 Test Item Value Reference Range Interpretation Comments Chloride Lvl (test code = Chloride Lvl) 92 95-109 [facility]2018-04-17 00:37:00 Test Item Value Reference Range Interpretation Comments Albumin Lvl (test code = Albumin Lvl) 3.4 3.5-5.0 [facility]2018-04-17 00:37:00 Test Item Value Reference Range Interpretation Comments Total Protein (test code = Total 7.4 6.4-8.4 Protein) [facility]2018-04-17 00:37:00 Test Item Value Reference Range Interpretation Comments B/C Ratio (test code = B/C Ratio) 8 1 6-25 [facility]2018-04-17 00:37:00 Test Item Value Reference Range Interpretation Comments BUN (test code = BUN) 84 7-22 [facility]2018-04-17 00:37:00 Test Item Value Reference Range Interpretation Comments Glucose Lvl (test code = Glucose Lvl) 123 70-99 [facility] CenterJsgtaoaACXKJWEHDM5488-73-79 00:37:00 Test Item Value Reference Range Interpretation Comments Lymphocytes (test code = Lymphocytes) 21.5 20.0-40.0 [facility] CenterGzbjbuuRKPVXMWQRZ5790-47-77 00:37:00 Test Item Value Reference Range Interpretation Comments Lymphocytes # (test code = Lymphocytes 1.6 1.0-5.5 #) [facility] CenterZdfwdyyOZUTNEFSZW1228-05-82 00:37:00 Test Item Value Reference Range Interpretation Comments Eosinophils # (test code 0.3 See_Comment [A utomated message] The = Eosinophils #) system whic h generated this result tra nsmitted reference range : <=0.5. The reference r yared was not used to int erpret this result as normal/abnormal . [facility] CenterDowcfwjYXUGKFTIBW7299-40-30 00:37:00 Test Item Value Reference Range Interpretation Comments Segs (test code = Segs) 63.7 45.0-75.0 [facility] CenterPymmcryCKKIZLHEOW2112-13-98 00:37:00 Test Item Value Reference Range Interpretation Comments Segs-Bands # (test code = Segs-Bands #) 4.8 1.5-8.1 [facility] CenterBhyierwDSINFAEAQD3883-75-76 00:37:00 Test Item Value Reference Range Interpretation Comments Eosinophils (test code = 3.5 See_Comment [A utomated message] The Eosinophils) system which ge nerated this result tra nsmitted reference range : <=4.0. The reference r yared was not used to int erpret this result as normal/abnormal . [facility] CenterEewzxnkBRBADBJOGH7578-50-91 00:37:00 Test Item Value Reference Range Interpretation Comments Monocytes (test code = Monocytes) 10.4 2.0-12.0 [facility] CenterGfxtmaiPZBOOZBZUF8417-56-58 00:37:00 Test Item Value Reference Range Interpretation Comments Basophils (test code = 0.9 See_Comment [Aut omated message] The Basophils) system which ge nerated this result tra nsmitted reference range : <=1.0. The reference r yared was not used to int erpret this result as normal/abnormal . [facility] CenterIvdcnxkAUPWKHDZNL6238-09-55 00:37:00 Test Item Value Reference Range Interpretation Comments Basophils # (test code 0.1 See_Comment [Aut omated message] The = Basophils #) system which generated this result tra nsmitted reference range : <=0.2. The reference r yared was not used to int erpret this result as normal/abnormal . [facility] CenterXypznvtBTKQSMSIVK1450-74-77 00:37:00 Test Item Value Reference Range Interpretation Comments Monocytes # (test code 0.8 See_Comment [Aut omated message] The = Monocytes #) system which generated this result tra nsmitted reference range : <=0.8. The reference r yared was not used to int erpret this result as normal/abnormal . [facility] CenterZsyxoywEDIPDRKEJB2634-67-20 00:37:00 Test Item Value Reference Range Interpretation Comments INR (test code = INR) 1.06 1 0.85-1.17 [facility] CenterVvpknsgRAFJSTKOYR0268-74-26 00:37:00 Test Item Value Reference Range Interpretation Comments PT (test code = PT) 13.8 s 12.0-14.7 [facility] CenterRyxxcclLRCKNXODDU3276-23-91 00:37:00 Test Item Value Reference Range Interpretation Comments PTT (test code = PTT) 35.7 s 22.9-35.8 [facility] CenterOdyxayuJYQCCRWLKS6571-45-32 00:37:00 Test Item Value Reference Range Interpretation Comments Platelet (test code = Platelet) 238 133-450 [facility] CenterDcntgveMMKGCQSCEZ3644-81-87 00:37:00 Test Item Value Reference Range Interpretation Comments MPV (test code = MPV) 7.5 7.4-10.4 [facility] CenterGyxjrvoFJDKGSFIPB9947-00-63 00:37:00 Test Item Value Reference Range Interpretation Comments Hct (test code = Hct) 25.4 42.0-54.0 [facility] CenterQocdcluQTJWAWWXSP8698-23-46 00:37:00 Test Item Value Reference Range Interpretation Comments MCV (test code = MCV) 80.3 80.0-94.0 [facility] CenterDaummhcLWYESEQCNP2449-64-06 00:37:00 Test Item Value Reference Range Interpretation Comments MCH (test code = MCH) 28.2 pg 27.0-31.0 [facility] CenterCfvyeeeARINBBAWGA1034-60-06 00:37:00 Test Item Value Reference Range Interpretation Comments Hgb (test code = Hgb) 8.9 14.0-18.0 [facility] CenterElenyvmVZQHFLCXOP9713-69-58 00:37:00 Test Item Value Reference Range Interpretation Comments MCHC (test code = MCHC) 35.1 32.0-36.0 [facility] CenterHtiumzxUJTICWSVPZ3065-67-55 00:37:00 Test Item Value Reference Range Interpretation Comments RDW (test code = RDW) 13.9 11.5-14.5 [facility] CenterDaovatfFSCXYAFWFZ7861-52-96 00:37:00 Test Item Value Reference Range Interpretation Comments WBC (test code = WBC) 7.6 3.7-10.4 [facility] CenterUfntlvqJUOCDFLOSN9416-43-06 00:37:00 Test Item Value Reference Range Interpretation Comments RBC (test code = RBC) 3.16 4.70-6.10 [facility] AND [id number] 00:37:00 Test Item Value Reference Range Interpretation Comments UA Urobilinogen (test code = UA <=1.0 mg/dL 0.1-1.0 Urobilinogen) [facility] AND [id number] 00:37:00 Test Item Value Reference Range Interpretation Comments UA Glucose (test code = UA Glucose) 50 [facility] AND [id number] 00:37:00 Test Item Value Reference Range Interpretation Comments UA Color (test code = UA Color) STRAW [facility] AND [id number] 00:37:00 Test Item Value Reference Range Interpretation Comments UA Sq Epi (test code = UA Sq Epi) Few /LPF [facility] AND [id number] 00:37:00 Test Item Value Reference Range Interpretation Comments UA WBC (test code = 8 See_Comment [Automa emerson message] The UA WBC) system which ge nerated this result transmit emerson reference range : <=5. The reference range was not used to interpr et this result as erinn l/abnormal. [facility] AND [id number] 00:37:00 Test Item Value Reference Range Interpretation Comments UA Mucus (test code = UA Mucus) Few /LPF [facility] AND [id number] 00:37:00 Test Item Value Reference Range Interpretation Comments UA Bacteria (test code = UA Moderate /HPF Bacteria) [facility] AND [id number] 00:37:00 Test Item Value Reference Range Interpretation Comments UA Leuk Est (test code Small *ABN*(01/22/18 = UA Leuk Est) 7:37 PM) [facility] AND [id number] 00:37:00 Test Item Value Reference Range Interpretation Comments UA Protein (test code = UA >=300 mg/dL Protein) [facility] AND [id number] 00:37:00 Test Item Value Reference Range Interpretation Comments UA Ketones (test code = UA Negative mg/dL Ketones) [facility] AND [id number] 00:37:00 Test Item Value Reference Range Interpretation Comments UA pH (test code = UA pH) 6.0 1 5.0-8.0 [facility] AND [id number] 00:37:00 Test Item Value Reference Range Interpretation Comments UA Turbidity (test code = Clear (01/22/18 7:37 UA Turbidity) PM) [facility] AND [id number] 00:37:00 Test Item Value Reference Range Interpretation Comments UA Spec Grav (test code = UA Spec 1.005 1 Grav) [facility] AND [id number] 00:37:00 Test Item Value Reference Range Interpretation Comments UA Nitrite (test code Negative (01/22/18 7:37 = UA Nitrite) PM) [facility] AND [id number] 00:37:00 Test Item Value Reference Range Interpretation Comments UA Blood (test code = Small *ABN*(01/22/18 UA Blood) 7:37 PM) [facility] [id number] 00:37:00 Test Item Value Reference Range Interpretation Comments UA Bili (test code = Negative *NA*(01/22/18 UA Bili) 7:37 PM) [facility] [id number] 00:37:00 Test Item Value Reference Range Interpretation Comments CK MB Index (test 1.7 1 See_Comment [Automate d message] The code = CK MB Index) system w [facility] generated this result transmit emerson reference range : <=2.5. The reference range was not used to interpr et this result as erinn l/abnormal. [facility] [id number] 00:37:00 Test Item Value Reference Range Interpretation Comments CK MB (test code = CK MB) 2.9 0.5-3.6 [facility] EQLHBGY0585-04-09 00:37:00 Test Item Value Reference Range Interpretation Comments Troponin-I (test code no gt See_Comment [Auto mated message] The = Troponin-I) system which g enerated this result transmit emerson reference range : <=0.40. The reference r yared was not used to interpr et this result as erinn l/abnormal. [facility] [id number] 00:37:00 Test Item Value Reference Range Interpretation Comments Total CK (test code = Total CK) 166 12-191 [facility] [id number] 00:37:00 Test Item Value Reference Range Interpretation Comments proBNP (test code = 4827 See_Comment [Automa emerson message] The proBNP) system which ge nerated this result tra nsmitted reference range : <=125. The reference r yared was not used to int erpret this result as erinn l/abnormal. [facility] [id number] 00:37:00 Test Item Value Reference Range Interpretation Comments Magnesium Lvl (test code = Magnesium 1.9 1.8-2.4 Lvl) [facility] [id number] 00:37:00 Test Item Value Reference Range Interpretation Comments Phosphorus (test code = Phosphorus) 9.1 2.5-4.5 [facility] [id number] 00:37:00 Test Item Value Reference Range Interpretation Comments eGFR (test code = eGFR) 5 [facility] [id number] 00:37:00 Test Item Value Reference Range Interpretation Comments Alk Phos (test code = Alk Phos) 115 39-136 [facility]2018-04-17 00:37:00 Test Item Value Reference Range Interpretation Comments AST (test code = AST) 23 See_Comment [Auto mated message] The system which ge nerated this result transmit emerson reference range : <=37. The reference range was not used to interpr et this result as erinn l/abnormal. [facility]2018-04-17 00:37:00 Test Item Value Reference Range Interpretation Comments ALT (test code = ALT) 24 See_Comment [Auto mated message] The system which ge nerated this result transmit emerson reference range : <=65. The reference range was not used to interpr et this result as erinn l/abnormal. [id number] 00:37:00 Test Item Value Reference Range Interpretation Comments A/G Ratio (test code = A/G Ratio) 0.8 1 0.7-1.6 [facility]2018-04-17 00:37:00 Test Item Value Reference Range Interpretation Comments Globulin (test code = Globulin) 4.0 2.7-4.2 [facility]2018-04-17 00:37:00 Test Item Value Reference Range Interpretation Comments Bili Total (test code = Bili Total) 0.4 0.2-1.3 [facility]2018-04-17 00:37:00 Test Item Value Reference Range Interpretation Comments Potassium Lvl (test code = Potassium 4.4 3.5-5.1 Lvl) [facility]2018-04-17 00:37:00 Test Item Value Reference Range Interpretation Comments Calcium Lvl (test code = Calcium Lvl) 6.7 8.5-10.5 [facility]2018-04-17 00:37:00 Test Item Value Reference Range Interpretation Comments Sodium Lvl (test code = Sodium Lvl) 130 135-145 [facility]2018-04-17 00:37:00 Test Item Value Reference Range Interpretation Comments Creatinine Lvl (test code = Creatinine 11.00 0.50-1.40 Lvl) [facility]2018-04-17 00:37:00 Test Item Value Reference Range Interpretation Comments AGAP (test code = AGAP) 17.4 10.0-20.0 [facility]2018-04-17 00:37:00 Test Item Value Reference Range Interpretation Comments CO2 (test code = CO2) 25 24-32 [facility]2018-04-17 00:37:00 Test Item Value Reference Range Interpretation Comments Chloride Lvl (test code = Chloride Lvl) 92 95-109 [facility]2018-04-17 00:37:00 Test Item Value Reference Range Interpretation Comments Albumin Lvl (test code = Albumin Lvl) 3.4 3.5-5.0 [facility]2018-04-17 00:37:00 Test Item Value Reference Range Interpretation Comments Total Protein (test code = Total 7.4 6.4-8.4 Protein) [facility]2018-04-17 00:37:00 Test Item Value Reference Range Interpretation Comments B/C Ratio (test code = B/C Ratio) 8 1 6-25 [facility]2018-04-17 00:37:00 Test Item Value Reference Range Interpretation Comments BUN (test code = BUN) 84 7-22 [facility] [facility]00 Test Item Value Reference Range Interpretation Comments Glucose Lvl (test code = Glucose Lvl) 123 70-99 [facility]WeeigefWBAXLZWNSC5878-23-23 00:37:00 Test Item Value Reference Range Interpretation Comments Lymphocytes (test code = Lymphocytes) 21.5 20.0-40.0 [facility] CenterFzvnfkiMTPYPSYLRM1971-26-80 00:37:00 Test Item Value Reference Range Interpretation Comments Lymphocytes # (test code = Lymphocytes 1.6 1.0-5.5 #) [facility] CenterVptzmpnVDRTYWOPEN4692-23-87 00:37:00 Test Item Value Reference Range Interpretation Comments Eosinophils # (test code 0.3 See_Comment [A utomated message] The = Eosinophils #) system whic h generated this result tra nsmitted reference range : <=0.5. The reference r yared was not used to int erpret this result as normal/abnormal . [facility] CenterQocobohTTOSVUJCGX3017-53-55 00:37:00 Test Item Value Reference Range Interpretation Comments Segs (test code = Segs) 63.7 45.0-75.0 [facility] CenterSkletanVGKUAQONAU6732-52-04 00:37:00 Test Item Value Reference Range Interpretation Comments Segs-Bands # (test code = Segs-Bands #) 4.8 1.5-8.1 [facility] CenterQvngoljBFWTEVWJRC6927-50-26 00:37:00 Test Item Value Reference Range Interpretation Comments Eosinophils (test code = 3.5 See_Comment [A utomated message] The Eosinophils) system which ge nerated this result tra nsmitted reference range : <=4.0. The reference r yared was not used to int erpret this result as normal/abnormal . [facility] CenterFhqulgxCZKKECLGNA0283-05-21 00:37:00 Test Item Value Reference Range Interpretation Comments Monocytes (test code = Monocytes) 10.4 2.0-12.0 [facility] CenterSbuepfsSQYAKVXHPF3453-83-22 00:37:00 Test Item Value Reference Range Interpretation Comments Basophils (test code = 0.9 See_Comment [Aut omated message] The Basophils) system which ge nerated this result tra nsmitted reference range : <=1.0. The reference r yared was not used to int erpret this result as normal/abnormal . [facility] CenterPntmiisUEQJZQQLRN6929-96-57 00:37:00 Test Item Value Reference Range Interpretation Comments Basophils # (test code 0.1 See_Comment [Aut omated message] The = Basophils #) system which generated this result tra nsmitted reference range : <=0.2. The reference r yared was not used to int erpret this result as normal/abnormal . [facility] CenterGwqjqtqYMYFDRSUWQ8512-57-96 00:37:00 Test Item Value Reference Range Interpretation Comments Monocytes # (test code 0.8 See_Comment [Aut omated message] The = Monocytes #) system which generated this result tra nsmitted reference range : <=0.8. The reference r yared was not used to int erpret this result as normal/abnormal . [facility] CenterVadjorbRKHBNPYLRS4162-84-43 00:37:00 Test Item Value Reference Range Interpretation Comments INR (test code = INR) 1.06 1 0.85-1.17 [facility] CenterBaitemxFZHWRTJSIQ4905-23-82 00:37:00 Test Item Value Reference Range Interpretation Comments PT (test code = PT) 13.8 s 12.0-14.7 [facility]CwlytiyOUXYTUDJBW5063-51-21 00:37:00 Test Item Value Reference Range Interpretation Comments PTT (test code = PTT) 35.7 s 22.9-35.8 [facility] HospitalWprmfeqBPGREXFVBL7139-05-90 00:37:00 Test Item Value Reference Range Interpretation Comments Platelet (test code = Platelet) 238 133-450 [facility] HospitalOkskaxbDOVMZFAIDD9839-69-85 00:37:00 Test Item Value Reference Range Interpretation Comments MPV (test code = MPV) 7.5 7.4-10.4 [facility] HospitalYxcqpitYNEDCLIUDS3940-00-61 00:37:00 Test Item Value Reference Range Interpretation Comments Hct (test code = Hct) 25.4 42.0-54.0 [facility] HospitalVovqtraTAWUDEZFAT6405-47-51 00:37:00 Test Item Value Reference Range Interpretation Comments MCV (test code = MCV) 80.3 80.0-94.0 [facility] HospitalXxjvbelJUVSXKSYQN6394-68-99 00:37:00 Test Item Value Reference Range Interpretation Comments MCH (test code = MCH) 28.2 pg 27.0-31.0 [facility] HospitalHintngxVTQOEITRBA5178-53-26 00:37:00 Test Item Value Reference Range Interpretation Comments Hgb (test code = Hgb) 8.9 14.0-18.0 [facility] HospitalTwxigkpUUMVLNHZIQ6908-79-74 00:37:00 Test Item Value Reference Range Interpretation Comments MCHC (test code = MCHC) 35.1 32.0-36.0 [facility] HospitalSpfagkuZUMJDCIJFL3548-75-80 00:37:00 Test Item Value Reference Range Interpretation Comments RDW (test code = RDW) 13.9 11.5-14.5 [facility] HospitalDldjlfrJCAEFOOSMP5968-47-32 00:37:00 Test Item Value Reference Range Interpretation Comments WBC (test code = WBC) 7.6 3.7-10.4 [facility] HospitalWckypqjLXMZSVNKWY9022-25-56 00:37:00 Test Item Value Reference Range Interpretation Comments RBC (test code = RBC) 3.16 4.70-6.10 [facility] AND [id number] 00:37:00 Test Item Value Reference Range Interpretation Comments UA Urobilinogen (test code = UA <=1.0 mg/dL 0.1-1.0 [facility]ilinogen) [facility] [id number] 00:37:00 Test Item Value Reference Range Interpretation Comments UA Glucose (test code = UA Glucose) 50 [facility] AND [id number] 00:37:00 Test Item Value Reference Range Interpretation Comments UA Color (test code = UA Color) STRAW [facility] AND [id number] 00:37:00 Test Item Value Reference Range Interpretation Comments UA Sq Epi (test code = UA Sq Epi) Few /LPF [facility] AND [id number] 00:37:00 Test Item Value Reference Range Interpretation Comments UA WBC (test code = 8 See_Comment [Automa emerson message] The UA WBC) system which ge nerated this result transmit emerson reference range : <=5. The reference range was not used to interpr et this result as erinn l/abnormal. [facility] AND [id number] 00:37:00 Test Item Value Reference Range Interpretation Comments UA Mucus (test code = UA Mucus) Few /LPF [facility] AND [id number] 00:37:00 Test Item Value Reference Range Interpretation Comments UA Bacteria (test code = UA Moderate /HPF Bacteria) [facility] AND [id number] 00:37:00 Test Item Value Reference Range Interpretation Comments UA Leuk Est (test code Small *ABN*(01/22/18 = UA Leuk Est) 7:37 PM) [facility] AND [id number] 00:37:00 Test Item Value Reference Range Interpretation Comments UA Protein (test code = UA >=300 mg/dL Protein) [facility] AND [id number] 00:37:00 Test Item Value Reference Range Interpretation Comments UA Ketones (test code = UA Negative mg/dL Ketones) [facility] AND [id number] 00:37:00 Test Item Value Reference Range Interpretation Comments UA pH (test code = UA pH) 6.0 1 5.0-8.0 [facility] AND [id number] 00:37:00 Test Item Value Reference Range Interpretation Comments UA Turbidity (test code = Clear (01/22/18 7:37 UA Turbidity) PM) [facility] AND [id number] 00:37:00 Test Item Value Reference Range Interpretation Comments UA Spec Grav (test code = UA Spec 1.005 1 Grav) [facility] [id number] 00:37:00 Test Item Value Reference Range Interpretation Comments UA Nitrite (test code Negative (01/22/18 7:37 = UA Nitrite) PM) [facility] [id number] 00:37:00 Test Item Value Reference Range Interpretation Comments UA Blood (test code = Small *ABN*(01/22/18 UA Blood) 7:37 PM) [facility] [id number] 00:37:00 Test Item Value Reference Range Interpretation Comments UA Bili (test code = Negative *NA*(01/22/18 UA Bili) 7:37 PM) [facility] [id number] 00:37:00 Test Item Value Reference Range Interpretation Comments CK MB Index (test 1.7 1 See_Comment [Automate d message] The code = CK MB Index) system w [facility] generated this result transmit emerson reference range : <=2.5. The reference range was not used to interpr et this result as erinn l/abnormal. [facility] OGPJERH5876-72-69 00:37:00 Test Item Value Reference Range Interpretation Comments CK MB (test code = CK MB) 2.9 0.5-3.6 [facility] JSUJNFZ3380-03-37 00:37:00 Test Item Value Reference Range Interpretation Comments Troponin-I (test code no gt See_Comment [Auto mated message] The = Troponin-I) system which g enerated this result transmit emerson reference range : <=0.40. The reference r yared was not used to interpr et this result as erinn l/abnormal. [facility] [id number] 00:37:00 Test Item Value Reference Range Interpretation Comments Total CK (test code = Total CK) 166 12-191 [facility] QWECZOK1026-97-35 00:37:00 Test Item Value Reference Range Interpretation Comments proBNP (test code = 4827 See_Comment [Automa emerson message] The proBNP) system which ge nerated this result tra nsmitted reference range : <=125. The reference r yared was not used to int erpret this result as erinn l/abnormal. [facility]2018-04-17 00:37:00 Test Item Value Reference Range Interpretation Comments Magnesium Lvl (test code = Magnesium 1.9 1.8-2.4 Lvl) [facility]2018-04-17 00:37:00 Test Item Value Reference Range Interpretation Comments Phosphorus (test code = Phosphorus) 9.1 2.5-4.5 [facility]2018-04-17 00:37:00 Test Item Value Reference Range Interpretation Comments eGFR (test code = eGFR) 5 [facility]2018-04-17 00:37:00 Test Item Value Reference Range Interpretation Comments Alk Phos (test code = Alk Phos) 115 39-136 [facility]2018-04-17 00:37:00 Test Item Value Reference Range Interpretation Comments AST (test code = AST) 23 See_Comment [Auto mated message] The system which ge nerated this result transmit emerson reference range : <=37. The reference range was not used to interpr et this result as erinn l/abnormal. [facility]2018-04-17 00:37:00 Test Item Value Reference Range Interpretation Comments ALT (test code = ALT) 24 See_Comment [Auto mated message] The system which ge nerated this result transmit emerson reference range : <=65. The reference range was not used to interpr et this result as erinn l/abnormal. [facility]2018-04-17 00:37:00 Test Item Value Reference Range Interpretation Comments A/G Ratio (test code = A/G Ratio) 0.8 1 0.7-1.6 [place]648-04-17 00:37:00 Test Item Value Reference Range Interpretation Comments Globulin (test code = Globulin) 4.0 2.7-4.2 [facility]2018-04-17 00:37:00 Test Item Value Reference Range Interpretation Comments Bili Total (test code = Bili Total) 0.4 0.2-1.3 [facility]2018-04-17 00:37:00 Test Item Value Reference Range Interpretation Comments Potassium Lvl (test code = Potassium 4.4 3.5-5.1 Lvl) [facility]2018-04-17 00:37:00 Test Item Value Reference Range Interpretation Comments Calcium Lvl (test code = Calcium Lvl) 6.7 8.5-10.5 [facility]2018-04-17 00:37:00 Test Item Value Reference Range Interpretation Comments Sodium Lvl (test code = Sodium Lvl) 130 135-145 [facility]2018-04-17 00:37:00 Test Item Value Reference Range Interpretation Comments Creatinine Lvl (test code = Creatinine 11.00 0.50-1.40 Lvl) [facility]2018-04-17 00:37:00 Test Item Value Reference Range Interpretation Comments AGAP (test code = AGAP) 17.4 10.0-20.0 [facility]2018-04-17 00:37:00 Test Item Value Reference Range Interpretation Comments CO2 (test code = CO2) 25 24-32 [facility]2018-04-17 00:37:00 Test Item Value Reference Range Interpretation Comments Chloride Lvl (test code = Chloride Lvl) 92 95-109 [facility]2018-04-17 00:37:00 Test Item Value Reference Range Interpretation Comments Albumin Lvl (test code = Albumin Lvl) 3.4 3.5-5.0 [facility]2018-04-17 00:37:00 Test Item Value Reference Range Interpretation Comments Total Protein (test code = Total 7.4 6.4-8.4 Protein) [facility]2018-04-17 00:37:00 Test Item Value Reference Range Interpretation Comments B/C Ratio (test code = B/C Ratio) 8 1 6-25 [facility]2018-04-17 00:37:00 Test Item Value Reference Range Interpretation Comments BUN (test code = BUN) 84 7-22 [facility]2018-04-17 00:37:00 Test Item Value Reference Range Interpretation Comments Glucose Lvl (test code = Glucose Lvl) 123 70-99 [facility] CenterUnzzwhnHCBWPAFCSF2091-48-77 00:37:00 Test Item Value Reference Range Interpretation Comments Lymphocytes (test code = Lymphocytes) 21.5 20.0-40.0 [facility] CenterRzsagbuCKMSFSFLFP2732-25-44 00:37:00 Test Item Value Reference Range Interpretation Comments Lymphocytes # (test code = Lymphocytes 1.6 1.0-5.5 #) [place] 101438-04-17 00:37:00 Test Item Value Reference Range Interpretation Comments Eosinophils # (test code 0.3 See_Comment [A utomated message] The = Eosinophils #) system whic h generated this result tra nsmitted reference range : <=0.5. The reference r yared was not used to int erpret this result as normal/abnormal . [facility] CenterYzwgwmaTXSJSYWRGH2496-19-63 00:37:00 Test Item Value Reference Range Interpretation Comments Segs (test code = Segs) 63.7 45.0-75.0 [facility] CenterDsnahpsJMBTEVOGLM8152-82-73 00:37:00 Test Item Value Reference Range Interpretation Comments Segs-Bands # (test code = Segs-Bands #) 4.8 1.5-8.1 [facility] CenterTztiwurCJZHBEPXSN9825-62-04 00:37:00 Test Item Value Reference Range Interpretation Comments Eosinophils (test code = 3.5 See_Comment [A utomated message] The Eosinophils) system which ge nerated this result tra nsmitted reference range : <=4.0. The reference r yared was not used to int erpret this result as normal/abnormal . [facility] CenterEconjruJZBTDMQLWO1528-06-17 00:37:00 Test Item Value Reference Range Interpretation Comments Monocytes (test code = Monocytes) 10.4 2.0-12.0 [facility] CenterKvnnuspTDVVBPTMJI7916-99-23 00:37:00 Test Item Value Reference Range Interpretation Comments Basophils (test code = 0.9 See_Comment [Aut omated message] The Basophils) system which ge nerated this result tra nsmitted reference range : <=1.0. The reference r yared was not used to int erpret this result as normal/abnormal . [facility] CenterKxbevpgUENFWZGNOB7053-57-57 00:37:00 Test Item Value Reference Range Interpretation Comments Basophils # (test code 0.1 See_Comment [Aut omated message] The = Basophils #) system which generated this result tra nsmitted reference range : <=0.2. The reference r yared was not used to int erpret this result as normal/abnormal . [facility] CenterMujanuoFFDZQWKCQR0151-42-26 00:37:00 Test Item Value Reference Range Interpretation Comments Monocytes # (test code 0.8 See_Comment [Aut omated message] The = Monocytes #) system which generated this result tra nsmitted reference range : <=0.8. The reference r yared was not used to int erpret this result as normal/abnormal . [facility] CenterXxcrbkbYNOFZISDRV0175-39-19 00:37:00 Test Item Value Reference Range Interpretation Comments INR (test code = INR) 1.06 1 0.85-1.17 [facility] CenterTgxdjohRCXHZNYPSX2986-94-79 00:37:00 Test Item Value Reference Range Interpretation Comments PT (test code = PT) 13.8 s 12.0-14.7 [facility] CenterQsfhiboJKOGEFWQLU3966-97-04 00:37:00 Test Item Value Reference Range Interpretation Comments PTT (test code = PTT) 35.7 s 22.9-35.8 [facility] CenterVnhljanGNSCLWLYQZ4105-25-79 00:37:00 Test Item Value Reference Range Interpretation Comments Platelet (test code = Platelet) 238 133-450 [facility] CenterFjyczuaCAPVCBLIKS9374-62-44 00:37:00 Test Item Value Reference Range Interpretation Comments MPV (test code = MPV) 7.5 7.4-10.4 [facility] CenterPfndnpdHCSBQTAWCU1631-92-07 00:37:00 Test Item Value Reference Range Interpretation Comments Hct (test code = Hct) 25.4 42.0-54.0 [facility] CenterJfhfreuYYINVADYJV6229-07-27 00:37:00 Test Item Value Reference Range Interpretation Comments MCV (test code = MCV) 80.3 80.0-94.0 [facility] CenterKqbrkwqAHRFRBOCBW7880-32-26 00:37:00 Test Item Value Reference Range Interpretation Comments MCH (test code = MCH) 28.2 pg 27.0-31.0 [facility] CenterFbmpecpHVRGBDRANM6037-60-97 00:37:00 Test Item Value Reference Range Interpretation Comments Hgb (test code = Hgb) 8.9 14.0-18.0 [facility] CenterXextxsuBCDOOHDMJS4938-71-17 00:37:00 Test Item Value Reference Range Interpretation Comments MCHC (test code = MCHC) 35.1 32.0-36.0 [facility] CenterLhaqoibVQEMYWAALT0732-61-19 00:37:00 Test Item Value Reference Range Interpretation Comments RDW (test code = RDW) 13.9 11.5-14.5 [facility] CenterIuocxoiOMSYEGBAIX5363-18-91 00:37:00 Test Item Value Reference Range Interpretation Comments WBC (test code = WBC) 7.6 3.7-10.4 [facility]CfvydxqDHHVXJXRSU4661-39-61 00:37:00 Test Item Value Reference Range Interpretation Comments RBC (test code = RBC) 3.16 4.70-6.10 [facility] AND [id number] 00:37:00 Test Item Value Reference Range Interpretation Comments UA Urobilinogen (test code = UA <=1.0 mg/dL 0.1-1.0 Urobilinogen) [facility] AND [id number] 00:37:00 Test Item Value Reference Range Interpretation Comments UA Glucose (test code = UA Glucose) 50 [facility] AND [id number] 00:37:00 Test Item Value Reference Range Interpretation Comments UA Color (test code = UA Color) STRAW [facility] AND [id number] 00:37:00 Test Item Value Reference Range Interpretation Comments UA Sq Epi (test code = UA Sq Epi) Few /LPF [facility] AND [id number] 00:37:00 Test Item Value Reference Range Interpretation Comments UA WBC (test code = 8 See_Comment [Automa emerson message] The UA WBC) system which ge nerated this result transmit emerson reference range : <=5. The reference range was not used to interpr et this result as erinn l/abnormal. [facility] AND [id number] 00:37:00 Test Item Value Reference Range Interpretation Comments UA Mucus (test code = UA Mucus) Few /LPF [facility] AND [id number] 00:37:00 Test Item Value Reference Range Interpretation Comments UA Bacteria (test code = UA Moderate /HPF Bacteria) [facility] AND [id number] 00:37:00 Test Item Value Reference Range Interpretation Comments UA Leuk Est (test code Small *ABN*(01/22/18 = UA Leuk Est) 7:37 PM) [facility] AND [id number] 00:37:00 Test Item Value Reference Range Interpretation Comments UA Protein (test code = UA >=300 mg/dL Protein) [facility] AND [id number] 00:37:00 Test Item Value Reference Range Interpretation Comments UA Ketones (test code = UA Negative mg/dL Ketones) [facility] [id number] 00:37:00 Test Item Value Reference Range Interpretation Comments UA pH (test code = UA pH) 6.0 1 5.0-8.0 [facility] [id number] 00:37:00 Test Item Value Reference Range Interpretation Comments UA Turbidity (test code = Clear (01/22/18 7:37 UA Turbidity) PM) [facility] [id number] 00:37:00 Test Item Value Reference Range Interpretation Comments UA Spec Grav (test code = UA Spec 1.005 1 Grav) [facility] [id number] 00:37:00 Test Item Value Reference Range Interpretation Comments UA Nitrite (test code Negative (01/22/18 7:37 = UA Nitrite) PM) [facility] [id number] 00:37:00 Test Item Value Reference Range Interpretation Comments UA Blood (test code = Small *ABN*(01/22/18 UA Blood) 7:37 PM) [facility] AND [id number] 00:37:00 Test Item Value Reference Range Interpretation Comments UA Bili (test code = Negative *NA*(01/22/18 UA Bili) 7:37 PM) [facility] RQHTADV5632-56-25 00:37:00 Test Item Value Reference Range Interpretation Comments CK MB Index (test 1.7 1 See_Comment [Automate d message] The code = CK MB Index) system w [facility] generated this result transmit emerson reference range : <=2.5. The reference range was not used to interpr et this result as erinn l/abnormal. [facility] [id number] 00:37:00 Test Item Value Reference Range Interpretation Comments CK MB (test code = CK MB) 2.9 0.5-3.6 [facility] LONQEFY3643-89-35 00:37:00 Test Item Value Reference Range Interpretation Comments Troponin-I (test code no gt See_Comment [Auto mated message] The = Troponin-I) system which g enerated this result transmit emerson reference range : <=0.40. The reference r yared was not used to interpr et this result as erinn l/abnormal. [facility] ODJVLVQ7505-12-37 00:37:00 Test Item Value Reference Range Interpretation Comments Total CK (test code = Total CK) 166 12-191 [facility] KMZFAGG5089-97-83 00:37:00 Test Item Value Reference Range Interpretation Comments proBNP (test code = 4827 See_Comment [Automa emerson message] The proBNP) system which ge nerated this result tra nsmitted reference range : <=125. The reference r yared was not used to int erpret this result as erinn l/abnormal. [facility] [employer] [id number] 00:37:00 Test Item Value Reference Range Interpretation Comments Magnesium Lvl (test code = Magnesium 1.9 1.8-2.4 Lvl) [facility] [employer] [id number] 00:37:00 Test Item Value Reference Range Interpretation Comments Phosphorus (test code = Phosphorus) 9.1 2.5-4.5 [facility] [employer] [id number] 00:37:00 Test Item Value Reference Range Interpretation Comments eGFR (test code = eGFR) 5 [facility] [employer] [id number] 00:37:00 Test Item Value Reference Range Interpretation Comments Alk Phos (test code = Alk Phos) 115 39-136 [facility] [employer] [id number] 00:37:00 Test Item Value Reference Range Interpretation Comments AST (test code = AST) 23 See_Comment [Auto mated message] The system which ge nerated this result transmit emerson reference range : <=37. The reference range was not used to interpr et this result as erinn l/abnormal. [facility] [employer] [id number] 00:37:00 Test Item Value Reference Range Interpretation Comments ALT (test code = ALT) 24 See_Comment [Auto mated message] The system which ge nerated this result transmit emerson reference range : <=65. The reference range was not used to interpr et this result as erinn l/abnormal. [facility] [employer] [id number] 00:37:00 Test Item Value Reference Range Interpretation Comments A/G Ratio (test code = A/G Ratio) 0.8 1 0.7-1.6 [facility] [employer] [id number] 00:37:00 Test Item Value Reference Range Interpretation Comments Globulin (test code = Globulin) 4.0 2.7-4.2 [facility]2018-04-17 00:37:00 Test Item Value Reference Range Interpretation Comments Bili Total (test code = Bili Total) 0.4 0.2-1.3 [facility]2018-04-17 00:37:00 Test Item Value Reference Range Interpretation Comments Potassium Lvl (test code = Potassium 4.4 3.5-5.1 Lvl) [facility]2018-04-17 00:37:00 Test Item Value Reference Range Interpretation Comments Calcium Lvl (test code = Calcium Lvl) 6.7 8.5-10.5 [facility]2018-04-17 00:37:00 Test Item Value Reference Range Interpretation Comments Sodium Lvl (test code = Sodium Lvl) 130 135-145 [facility]2018-04-17 00:37:00 Test Item Value Reference Range Interpretation Comments Creatinine Lvl (test code = Creatinine 11.00 0.50-1.40 Lvl) [facility]2018-04-17 00:37:00 Test Item Value Reference Range Interpretation Comments AGAP (test code = AGAP) 17.4 10.0-20.0 [facility]2018-04-17 00:37:00 Test Item Value Reference Range Interpretation Comments CO2 (test code = CO2) 25 24-32 [facility]2018-04-17 00:37:00 Test Item Value Reference Range Interpretation Comments Chloride Lvl (test code = Chloride Lvl) 92 95-109 [facility]2018-04-17 00:37:00 Test Item Value Reference Range Interpretation Comments Albumin Lvl (test code = Albumin Lvl) 3.4 3.5-5.0 [facility]2018-04-17 00:37:00 Test Item Value Reference Range Interpretation Comments Total Protein (test code = Total 7.4 6.4-8.4 Protein) [facility]2018-04-17 00:37:00 Test Item Value Reference Range Interpretation Comments B/C Ratio (test code = B/C Ratio) 8 1 6-25 [facility]2018-04-17 00:37:00 Test Item Value Reference Range Interpretation Comments BUN (test code = BUN) 84 7-22 [facility]2018-04-17 00:37:00 Test Item Value Reference Range Interpretation Comments Glucose Lvl (test code = Glucose Lvl) 123 70-99 [facility]FlgikplRPRCGJMMOX7262-87-24 00:37:00 Test Item Value Reference Range Interpretation Comments Lymphocytes (test code = Lymphocytes) 21.5 20.0-40.0 [facility] CenterXxvmrtdMNWAZEFKFW0083-94-35 00:37:00 Test Item Value Reference Range Interpretation Comments Lymphocytes # (test code = Lymphocytes 1.6 1.0-5.5 #) [facility] CenterIgjojtnSAJHAOVWST3184-26-13 00:37:00 Test Item Value Reference Range Interpretation Comments Eosinophils # (test code 0.3 See_Comment [A utomated message] The = Eosinophils #) system whic h generated this result tra nsmitted reference range : <=0.5. The reference r yared was not used to int erpret this result as normal/abnormal . [facility] CenterVnuuepbXNZGNHYMEO2114-82-65 00:37:00 Test Item Value Reference Range Interpretation Comments Segs (test code = Segs) 63.7 45.0-75.0 [facility] CenterOfjsifnRLQUEHDPRH5514-14-78 00:37:00 Test Item Value Reference Range Interpretation Comments Segs-Bands # (test code = Segs-Bands #) 4.8 1.5-8.1 [facility] CenterTuvkdcvIFAQQDKYQB2975-96-99 00:37:00 Test Item Value Reference Range Interpretation Comments Eosinophils (test code = 3.5 See_Comment [A utomated message] The Eosinophils) system which ge nerated this result tra nsmitted reference range : <=4.0. The reference r yared was not used to int erpret this result as normal/abnormal . [facility] CenterVjxmcirTUKQFXTIUY4336-63-45 00:37:00 Test Item Value Reference Range Interpretation Comments Monocytes (test code = Monocytes) 10.4 2.0-12.0 [facility] CenterGtfqvrgAVWPQBRFLM4890-80-20 00:37:00 Test Item Value Reference Range Interpretation Comments Basophils (test code = 0.9 See_Comment [Aut omated message] The Basophils) system which ge nerated this result tra nsmitted reference range : <=1.0. The reference r yared was not used to int erpret this result as normal/abnormal . [facility] CenterOlrmdfnVQYEQHCCGY0100-52-20 00:37:00 Test Item Value Reference Range Interpretation Comments Basophils # (test code 0.1 See_Comment [Aut omated message] The = Basophils #) system which generated this result tra nsmitted reference range : <=0.2. The reference r yared was not used to int erpret this result as normal/abnormal . [facility] CenterMmdxupyLTSHZNTPWY4326-50-70 00:37:00 Test Item Value Reference Range Interpretation Comments Monocytes # (test code 0.8 See_Comment [Aut omated message] The = Monocytes #) system which generated this result tra nsmitted reference range : <=0.8. The reference r yared was not used to int erpret this result as normal/abnormal . [facility] CenterLxkxhqvXSTBKFCKRD6994-57-52 00:37:00 Test Item Value Reference Range Interpretation Comments INR (test code = INR) 1.06 1 0.85-1.17 [facility] CenterQdcjlmnXFSUMDUYFO2945-36-20 00:37:00 Test Item Value Reference Range Interpretation Comments PT (test code = PT) 13.8 s 12.0-14.7 [facility] CenterSrxegynPVYAVSNRKS9799-58-27 00:37:00 Test Item Value Reference Range Interpretation Comments PTT (test code = PTT) 35.7 s 22.9-35.8 [facility] CenterYyfoxfsLWTHHNSRZL0053-06-65 00:37:00 Test Item Value Reference Range Interpretation Comments Platelet (test code = Platelet) 238 133-450 [facility] CenterGwwshsgDDASFPQYOR2417-64-59 00:37:00 Test Item Value Reference Range Interpretation Comments MPV (test code = MPV) 7.5 7.4-10.4 [facility] CenterSugwglxIPPNCQMHSH0731-70-77 00:37:00 Test Item Value Reference Range Interpretation Comments Hct (test code = Hct) 25.4 42.0-54.0 [facility] CenterUejlroaXARVRGUKDS1460-11-05 00:37:00 Test Item Value Reference Range Interpretation Comments MCV (test code = MCV) 80.3 80.0-94.0 [facility] CenterPsshkesMNSBRZGTUK5297-24-64 00:37:00 Test Item Value Reference Range Interpretation Comments MCH (test code = MCH) 28.2 pg 27.0-31.0 [facility] CenterWafciwmYWSYIKJOVH6927-98-75 00:37:00 Test Item Value Reference Range Interpretation Comments Hgb (test code = Hgb) 8.9 14.0-18.0 [facility] CenterGgwzoyjQYZWNUEZRQ5223-10-47 00:37:00 Test Item Value Reference Range Interpretation Comments MCHC (test code = MCHC) 35.1 32.0-36.0 [facility] CenterDqgvjhbWDEUVUBEZZ1823-84-47 00:37:00 Test Item Value Reference Range Interpretation Comments RDW (test code = RDW) 13.9 11.5-14.5 [facility] CenterAbdllhjAIEFSHBQHE9716-42-53 00:37:00 Test Item Value Reference Range Interpretation Comments WBC (test code = WBC) 7.6 3.7-10.4 [facility] CenterEfaqynzVSEWJXKVWE8358-77-91 00:37:00 Test Item Value Reference Range Interpretation Comments RBC (test code = RBC) 3.16 4.70-6.10 [facility] AND [id number] 00:37:00 Test Item Value Reference Range Interpretation Comments UA Urobilinogen (test code = UA <=1.0 mg/dL 0.1-1.0 Urobilinogen) [facility] AND [id number] 00:37:00 Test Item Value Reference Range Interpretation Comments UA Glucose (test code = UA Glucose) 50 [facility] AND [id number] 00:37:00 Test Item Value Reference Range Interpretation Comments UA Color (test code = UA Color) STRAW [facility] AND KXQHL1726-06-31 00:37:00 Test Item Value Reference Range Interpretation Comments UA Sq Epi (test code = UA Sq Epi) Few /LPF [facility] AND [id number] 00:37:00 Test Item Value Reference Range Interpretation Comments UA WBC (test code = 8 See_Comment [Automa emerson message] The UA WBC) system which ge nerated this result transmit emerson reference range : <=5. The reference range was not used to interpr et this result as erinn l/abnormal. [facility] AND [id number] 00:37:00 Test Item Value Reference Range Interpretation Comments UA Mucus (test code = UA Mucus) Few /LPF [facility] AND [id number] 00:37:00 Test Item Value Reference Range Interpretation Comments UA Bacteria (test code = UA Moderate /HPF Bacteria) [facility] AND [id number] 00:37:00 Test Item Value Reference Range Interpretation Comments UA Leuk Est (test code Small *ABN*(01/22/18 = UA Leuk Est) 7:37 PM) [facility] AND [id number] 00:37:00 Test Item Value Reference Range Interpretation Comments UA Protein (test code = UA >=300 mg/dL Protein) [facility] AND [id number] 00:37:00 Test Item Value Reference Range Interpretation Comments UA Ketones (test code = UA Negative mg/dL Ketones) [facility] AND [id number] 00:37:00 Test Item Value Reference Range Interpretation Comments UA pH (test code = UA pH) 6.0 1 5.0-8.0 [facility] AND [id number] 00:37:00 Test Item Value Reference Range Interpretation Comments UA Turbidity (test code = Clear (01/22/18 7:37 UA Turbidity) PM) [facility] AND [id number] 00:37:00 Test Item Value Reference Range Interpretation Comments UA Spec Grav (test code = UA Spec 1.005 1 Grav) [facility] AND [id number] 00:37:00 Test Item Value Reference Range Interpretation Comments UA Nitrite (test code Negative (01/22/18 7:37 = UA Nitrite) PM) [facility] AND [id number] 00:37:00 Test Item Value Reference Range Interpretation Comments UA Blood (test code = Small *ABN*(01/22/18 UA Blood) 7:37 PM) [facility] AND [id number] 00:37:00 Test Item Value Reference Range Interpretation Comments UA Bili (test code = Negative *NA*(01/22/18 UA Bili) 7:37 PM) [facility] YAPHQ78[facility] 10:09:00 Test Item Value Reference Range Interpretation Comments Magnesium Lvl (test code = Magnesium 1.8 1.8-2.4 Lvl) [facility] [id number] 10:09:00 Test Item Value Reference Range Interpretation Comments eGFR (test code = eGFR) 4 [facility] ZNNKC2669-92-84 10:09:00 Test Item Value Reference Range Interpretation Comments Creatinine Lvl (test code = Creatinine 11.60 0.50-1.40 Lvl) [facility]2018-03-14 10:09:00 Test Item Value Reference Range Interpretation Comments Calcium Lvl (test code = Calcium Lvl) 6.9 8.5-10.5 [facility]2018-03-14 10:09:00 Test Item Value Reference Range Interpretation Comments CO2 (test code = CO2) 27 24-32 [facility]2018-03-14 10:09:00 Test Item Value Reference Range Interpretation Comments Sodium Lvl (test code = Sodium Lvl) 133 135-145 [facility]2018-03-14 10:09:00 Test Item Value Reference Range Interpretation Comments Chloride Lvl (test code = Chloride Lvl) 94 95-109 [facility]2018-03-14 10:09:00 Test Item Value Reference Range Interpretation Comments Potassium Lvl (test code = Potassium 3.7 3.5-5.1 Lvl) [facility]2018-03-14 10:09:00 Test Item Value Reference Range Interpretation Comments BUN (test code = BUN) 104 7-22 [facility]2018-03-14 10:09:00 Test Item Value Reference Range Interpretation Comments Glucose Lvl (test code = Glucose Lvl) 85 70-99 [facility]2018-03-14 10:09:00 Test Item Value Reference Range Interpretation Comments AGAP (test code = AGAP) 15.7 10.0-20.0 [facility] CenterTkxnjzkFEFWRYKNRI5828-34-76 10:09:00 Test Item Value Reference Range Interpretation Comments Eosinophils # (test code 0.2 See_Comment [A utomated message] The = Eosinophils #) system whic h generated this result tra nsmitted reference range : <=0.5. The reference r yared was not used to int erpret this result as normal/abnormal . [facility] CenterCajjetoVJJTPSTSXO7642-43-16 10:09:00 Test Item Value Reference Range Interpretation Comments Monocytes # (test code 0.6 See_Comment [Aut omated message] The = Monocytes #) system which generated this result tra nsmitted reference range : <=0.8. The reference r yared was not used to int erpret this result as normal/abnormal . [facility] CenterNpesgshPMMIXYHXWC7128-60-13 10:09:00 Test Item Value Reference Range Interpretation Comments Microcyte (test code = 1+ *ABN*(12/20/17 Microcyte) 5:09 AM) [facility] CenterQbjciefVGFOCEAGZB8311-01-71 10:09:00 Test Item Value Reference Range Interpretation Comments Segs (test code = Segs) 71.0 45.0-75.0 [facility] CenterXdiyganJHEUUMDEMB8019-53-99 10:09:00 Test Item Value Reference Range Interpretation Comments Lymphocytes # (test code = Lymphocytes 1.0 1.0-5.5 #) [facility] CenterVblpyhuTYOOWQZWIT4554-70-71 10:09:00 Test Item Value Reference Range Interpretation Comments Basophils (test code = 0.8 See_Comment [Aut omated message] The Basophils) system which ge nerated this result tra nsmitted reference range : <=1.0. The reference r yared was not used to int erpret this result as normal/abnormal . [facility] CenterSmzmzpbXWGMMRIKUF2332-78-83 10:09:00 Test Item Value Reference Range Interpretation Comments Segs-Bands # (test code = Segs-Bands #) 4.6 1.5-8.1 [facility] CenterZrmfiqfECBWHXBZOF3907-63-10 10:09:00 Test Item Value Reference Range Interpretation Comments Lymphocytes (test code = Lymphocytes) 15.7 20.0-40.0 [facility] CenterSljzcajAJRSQKRJDD3106-02-48 10:09:00 Test Item Value Reference Range Interpretation Comments Eosinophils (test code = 3.1 See_Comment [A utomated message] The Eosinophils) system which ge nerated this result tra nsmitted reference range : <=4.0. The reference r yared was not used to int erpret this result as normal/abnormal . [facility] CenterXbpgtjuWGGESDETYZ6063-35-38 10:09:00 Test Item Value Reference Range Interpretation Comments Monocytes (test code = Monocytes) 9.4 2.0-12.0 [facility] CenterUplzwuvPFNIAXMVZF8048-30-55 10:09:00 Test Item Value Reference Range Interpretation Comments Platelet (test code = Platelet) 193 133-450 [facility] CenterVjbbexhKGZKQRJRXA5541-78-37 10:09:00 Test Item Value Reference Range Interpretation Comments MCV (test code = MCV) 77.5 80.0-94.0 [facility] CenterDmgdfbzHZSQDDNSIH3676-34-21 10:09:00 Test Item Value Reference Range Interpretation Comments MCHC (test code = MCHC) 35.5 32.0-36.0 [facility] CenterAdaqjjiQFUVMXPYEW2446-03-01 10:09:00 Test Item Value Reference Range Interpretation Comments MCH (test code = MCH) 27.5 pg 27.0-31.0 [facility] CenterAuxhzezQDBENTFOZD9757-54-57 10:09:00 Test Item Value Reference Range Interpretation Comments RDW (test code = RDW) 14.1 11.5-14.5 [facility] CenterVcoiqxxZHEXNBOGWN8344-04-70 10:09:00 Test Item Value Reference Range Interpretation Comments MPV (test code = MPV) 7.7 7.4-10.4 [facility] CenterDrkrruvLGLOGOSEGD8948-03-94 10:09:00 Test Item Value Reference Range Interpretation Comments Hct (test code = Hct) 23.5 42.0-54.0 [facility] CenterDnjukafVUZBWPGLHL5073-33-46 10:09:00 Test Item Value Reference Range Interpretation Comments Hgb (test code = Hgb) 8.4 14.0-18.0 [facility] CenterEcebyfgLMGVBRGQWK5751-86-48 10:09:00 Test Item Value Reference Range Interpretation Comments RBC (test code = RBC) 3.03 4.70-6.10 [facility] CenterGxygkqwSAJGLUQGGB8544-14-47 10:09:00 Test Item Value Reference Range Interpretation Comments WBC (test code = WBC) 6.5 3.7-10.4 [facility] FLQJQMG9182-85-47 10:09:00 Test Item Value Reference Range Interpretation Comments Ca Norm WB (test code = Ca Norm WB) 0.86 1.05-1.25 [facility] GOIOPDG5263-06-86 10:09:00 Test Item Value Reference Range Interpretation Comments Ca Ion WB (test code = Ca Ion WB) 0.86 1.05-1.25 [facility]2018-03-14 10:09:00 Test Item Value Reference Range Interpretation Comments Magnesium Lvl (test code = Magnesium 1.8 1.8-2.4 Lvl) [facility]2018-03-14 10:09:00 Test Item Value Reference Range Interpretation Comments eGFR (test code = eGFR) 4 [facility]2018-03-14 10:09:00 Test Item Value Reference Range Interpretation Comments Creatinine Lvl (test code = Creatinine 11.60 0.50-1.40 Lvl) [facility]2018-03-14 10:09:00 Test Item Value Reference Range Interpretation Comments Calcium Lvl (test code = Calcium Lvl) 6.9 8.5-10.5 [place]648-03-14 10:09:00 Test Item Value Reference Range Interpretation Comments CO2 (test code = CO2) 27 24-32 [facility]2018-03-14 10:09:00 Test Item Value Reference Range Interpretation Comments Sodium Lvl (test code = Sodium Lvl) 133 135-145 [facility]2018-03-14 10:09:00 Test Item Value Reference Range Interpretation Comments Chloride Lvl (test code = Chloride Lvl) 94 95-109 [facility]2018-03-14 10:09:00 Test Item Value Reference Range Interpretation Comments Potassium Lvl (test code = Potassium 3.7 3.5-5.1 Lvl) [facility]2018-03-14 10:09:00 Test Item Value Reference Range Interpretation Comments BUN (test code = BUN) 104 7-22 [facility]2018-03-14 10:09:00 Test Item Value Reference Range Interpretation Comments Glucose Lvl (test code = Glucose Lvl) 85 70-99 [facility]2018-03-14 10:09:00 Test Item Value Reference Range Interpretation Comments AGAP (test code = AGAP) 15.7 10.0-20.0 [facility] CenterYunordoPGLSXAZWOZ7659-05-38 10:09:00 Test Item Value Reference Range Interpretation Comments Eosinophils # (test code 0.2 See_Comment [A utomated message] The = Eosinophils #) system whic h generated this result tra nsmitted reference range : <=0.5. The reference r yared was not used to int erpret this result as normal/abnormal . [facility] CenterXkfrezaDTWVDQZJOY1034-63-34 10:09:00 Test Item Value Reference Range Interpretation Comments Monocytes # (test code 0.6 See_Comment [Aut omated message] The = Monocytes #) system which generated this result tra nsmitted reference range : <=0.8. The reference r yared was not used to int erpret this result as normal/abnormal . [place] [address]-03-14 10:09:00 Test Item Value Reference Range Interpretation Comments Microcyte (test code = 1+ *ABN*(12/20/17 Microcyte) 5:09 AM) [facility] CenterVvegugdVMRBYVEJDP3351-47-05 10:09:00 Test Item Value Reference Range Interpretation Comments Segs (test code = Segs) 71.0 45.0-75.0 [facility] CenterDxtqdowVEBAHBSAGJ6309-87-05 10:09:00 Test Item Value Reference Range Interpretation Comments Lymphocytes # (test code = Lymphocytes 1.0 1.0-5.5 #) [facility] CenterUfqghdiYZKPTTVSOJ7520-93-30 10:09:00 Test Item Value Reference Range Interpretation Comments Basophils (test code = 0.8 See_Comment [Aut omated message] The Basophils) system which ge nerated this result tra nsmitted reference range : <=1.0. The reference r yared was not used to int erpret this result as normal/abnormal . [facility] CenterIvxgrgbHXKFBFJXKW8087-00-62 10:09:00 Test Item Value Reference Range Interpretation Comments Segs-Bands # (test code = Segs-Bands #) 4.6 1.5-8.1 [facility] CenterLycpjftQPVBOJVXUE6998-66-20 10:09:00 Test Item Value Reference Range Interpretation Comments Lymphocytes (test code = Lymphocytes) 15.7 20.0-40.0 [facility] CenterIlpfdygMJYBFCESCX9554-36-40 10:09:00 Test Item Value Reference Range Interpretation Comments Eosinophils (test code = 3.1 See_Comment [A utomated message] The Eosinophils) system which ge nerated this result tra nsmitted reference range : <=4.0. The reference r yared was not used to int erpret this result as normal/abnormal . [facility] CenterVfdrxzhCEQDLXIPGB2123-47-22 10:09:00 Test Item Value Reference Range Interpretation Comments Monocytes (test code = Monocytes) 9.4 2.0-12.0 [facility] CenterZfsixovNTROZOFQAP1240-19-43 10:09:00 Test Item Value Reference Range Interpretation Comments Platelet (test code = Platelet) 193 133-450 [facility] CenterPyeywhfHLTKGFNMRE6645-46-10 10:09:00 Test Item Value Reference Range Interpretation Comments MCV (test code = MCV) 77.5 80.0-94.0 [facility] CenterAkjhmtbDFVKXREKTM4091-09-92 10:09:00 Test Item Value Reference Range Interpretation Comments MCHC (test code = MCHC) 35.5 32.0-36.0 [facility] CenterIlglbroQZLXZUEYQE0507-54-35 10:09:00 Test Item Value Reference Range Interpretation Comments MCH (test code = MCH) 27.5 pg 27.0-31.0 [facility] CenterGyaqzbbTAEXXVDLUR4291-57-87 10:09:00 Test Item Value Reference Range Interpretation Comments RDW (test code = RDW) 14.1 11.5-14.5 [facility] CenterNyelmwbVTSJMLKWZQ9993-29-97 10:09:00 Test Item Value Reference Range Interpretation Comments MPV (test code = MPV) 7.7 7.4-10.4 [facility] CenterJexqoanMUOJUILFXQ6505-24-97 10:09:00 Test Item Value Reference Range Interpretation Comments Hct (test code = Hct) 23.5 42.0-54.0 [facility] CenterSylcfjqRQNYTAXRVN3888-96-96 10:09:00 Test Item Value Reference Range Interpretation Comments Hgb (test code = Hgb) 8.4 14.0-18.0 [facility] CenterOltiydwCPQWSUEKCP6136-36-33 10:09:00 Test Item Value Reference Range Interpretation Comments RBC (test code = RBC) 3.03 4.70-6.10 [facility] CenterSvwuayaNQGRDDNWUN2198-12-56 10:09:00 Test Item Value Reference Range Interpretation Comments WBC (test code = WBC) 6.5 3.7-10.4 [facility]2018-03-14 10:09:00 Test Item Value Reference Range Interpretation Comments Ca Norm WB (test code = Ca Norm WB) 0.86 1.05-1.25 [facility]2018-03-14 10:09:00 Test Item Value Reference Range Interpretation Comments Ca Ion WB (test code = Ca Ion WB) 0.86 1.05-1.25 [facility]2018-03-14 10:09:00 Test Item Value Reference Range Interpretation Comments Magnesium Lvl (test code = Magnesium 1.8 1.8-2.4 Lvl) [facility]2018-03-14 10:09:00 Test Item Value Reference Range Interpretation Comments eGFR (test code = eGFR) 4 [facility]2018-03-14 10:09:00 Test Item Value Reference Range Interpretation Comments Creatinine Lvl (test code = Creatinine 11.60 0.50-1.40 Lvl) [facility]2018-03-14 10:09:00 Test Item Value Reference Range Interpretation Comments Calcium Lvl (test code = Calcium Lvl) 6.9 8.5-10.5 [facility]2018-03-14 10:09:00 Test Item Value Reference Range Interpretation Comments CO2 (test code = CO2) 27 24-32 [facility]2018-03-14 10:09:00 Test Item Value Reference Range Interpretation Comments Sodium Lvl (test code = Sodium Lvl) 133 135-145 [facility]2018-03-14 10:09:00 Test Item Value Reference Range Interpretation Comments Chloride Lvl (test code = Chloride Lvl) 94 95-109 [facility]2018-03-14 10:09:00 Test Item Value Reference Range Interpretation Comments Potassium Lvl (test code = Potassium 3.7 3.5-5.1 Lvl) [facility]2018-03-14 10:09:00 Test Item Value Reference Range Interpretation Comments BUN (test code = BUN) 104 7-22 [facility]2018-03-14 10:09:00 Test Item Value Reference Range Interpretation Comments Glucose Lvl (test code = Glucose Lvl) 85 70-99 [facility]2018-03-14 10:09:00 Test Item Value Reference Range Interpretation Comments AGAP (test code = AGAP) 15.7 10.0-20.0 [facility] CenterUeaxxpqMEZNYAHQII7862-15-45 10:09:00 Test Item Value Reference Range Interpretation Comments Eosinophils # (test code 0.2 See_Comment [A utomated message] The = Eosinophils #) system whic h generated this result tra nsmitted reference range : <=0.5. The reference r yared was not used to int erpret this result as normal/abnormal . [facility] CenterDzkfrtkKIUJJXPIZP0477-74-79 10:09:00 Test Item Value Reference Range Interpretation Comments Monocytes # (test code 0.6 See_Comment [Aut omated message] The = Monocytes #) system which generated this result tra nsmitted reference range : <=0.8. The reference r yared was not used to int erpret this result as normal/abnormal . [facility] CenterSdnxgpbPERQLABWVC1301-95-59 10:09:00 Test Item Value Reference Range Interpretation Comments Microcyte (test code = 1+ *ABN*(12/20/17 Microcyte) 5:09 AM) [facility] CenterMxctblkYENKKITPVG6496-85-11 10:09:00 Test Item Value Reference Range Interpretation Comments Segs (test code = Segs) 71.0 45.0-75.0 [facility] CenterMyqucdeZUUOJIZDIM9545-36-25 10:09:00 Test Item Value Reference Range Interpretation Comments Lymphocytes # (test code = Lymphocytes 1.0 1.0-5.5 #) [facility] CenterCawnxdfZFOQRATELY4859-79-93 10:09:00 Test Item Value Reference Range Interpretation Comments Basophils (test code = 0.8 See_Comment [Aut omated message] The Basophils) system which ge nerated this result tra nsmitted reference range : <=1.0. The reference r yared was not used to int erpret this result as normal/abnormal . [facility] CenterZhcipklQIBKCZVIFR4608-74-14 10:09:00 Test Item Value Reference Range Interpretation Comments Segs-Bands # (test code = Segs-Bands #) 4.6 1.5-8.1 [facility] [facility]neyrmmLVKPEPQTRM7612-25-27 10:09:00 Test Item Value Reference Range Interpretation Comments Lymphocytes (test code = Lymphocytes) 15.7 20.0-40.0 [facility] Cent[id number] 10:09:00 Test Item Value Reference Range Interpretation Comments Eosinophils (test code = 3.1 See_Comment [A utomated message] The Eosinophils) system which ge nerated this result tra nsmitted reference range : <=4.0. The reference r yared was not used to int erpret this result as normal/abnormal . [facility] CenterNqponblKFFBBJCKKE7028-61-16 10:09:00 Test Item Value Reference Range Interpretation Comments Monocytes (test code = Monocytes) 9.4 2.0-12.0 [facility] CenterSgtxormILQBWWNLKM1153-70-62 10:09:00 Test Item Value Reference Range Interpretation Comments Platelet (test code = Platelet) 193 133-450 [facility] CenterQiiuwxpTUOYNEDPSY0157-88-10 10:09:00 Test Item Value Reference Range Interpretation Comments MCV (test code = MCV) 77.5 80.0-94.0 [facility] CenterBrmnzvtZQVTCBUYVN8122-09-02 10:09:00 Test Item Value Reference Range Interpretation Comments MCHC (test code = MCHC) 35.5 32.0-36.0 [facility] CenterAklsirpPQAQQYTVTD2274-66-72 10:09:00 Test Item Value Reference Range Interpretation Comments MCH (test code = MCH) 27.5 pg 27.0-31.0 [facility] CenterBsrepzzOFCGRVBHYK3527-46-33 10:09:00 Test Item Value Reference Range Interpretation Comments RDW (test code = RDW) 14.1 11.5-14.5 [facility] CenterHutfbzlDVEDHHVBRJ4268-05-35 10:09:00 Test Item Value Reference Range Interpretation Comments MPV (test code = MPV) 7.7 7.4-10.4 [facility] CenterVgjgrkzPFAUSZRLLH4066-11-32 10:09:00 Test Item Value Reference Range Interpretation Comments Hct (test code = Hct) 23.5 42.0-54.0 [facility] CenterUqnbieoUDPMOQVOLM0012-34-96 10:09:00 Test Item Value Reference Range Interpretation Comments Hgb (test code = Hgb) 8.4 14.0-18.0 [facility] CenterAkatealIZHGRNLDBY3555-62-20 10:09:00 Test Item Value Reference Range Interpretation Comments RBC (test code = RBC) 3.03 4.70-6.10 [facility] CenterBqwhwihAQTDZBHSOK1646-04-79 10:09:00 Test Item Value Reference Range Interpretation Comments WBC (test code = WBC) 6.5 3.7-10.4 [facility]2018-03-14 10:09:00 Test Item Value Reference Range Interpretation Comments Ca Norm WB (test code = Ca Norm WB) 0.86 1.05-1.25 [facility] [id number] 10:09:00 Test Item Value Reference Range Interpretation Comments Ca Ion WB (test code = Ca Ion WB) 0.86 1.05-1.25 [facility]2018-03-14 10:09:00 Test Item Value Reference Range Interpretation Comments Magnesium Lvl (test code = Magnesium 1.8 1.8-2.4 Lvl) [facility] [id number] 10:09:00 Test Item Value Reference Range Interpretation Comments eGFR (test code = eGFR) 4 [facility]2018-03-14 10:09:00 Test Item Value Reference Range Interpretation Comments Creatinine Lvl (test code = Creatinine 11.60 0.50-1.40 Lvl) [facility]2018-03-14 10:09:00 Test Item Value Reference Range Interpretation Comments Calcium Lvl (test code = Calcium Lvl) 6.9 8.5-10.5 [facility]2018-03-14 10:09:00 Test Item Value Reference Range Interpretation Comments CO2 (test code = CO2) 27 24-32 [facility]2018-03-14 10:09:00 Test Item Value Reference Range Interpretation Comments Sodium Lvl (test code = Sodium Lvl) 133 135-145 [facility]2018-03-14 10:09:00 Test Item Value Reference Range Interpretation Comments Chloride Lvl (test code = Chloride Lvl) 94 95-109 [facility]2018-03-14 10:09:00 Test Item Value Reference Range Interpretation Comments Potassium Lvl (test code = Potassium 3.7 3.5-5.1 Lvl) [facility]2018-03-14 10:09:00 Test Item Value Reference Range Interpretation Comments BUN (test code = BUN) 104 7-22 [facility]2018-03-14 10:09:00 Test Item Value Reference Range Interpretation Comments Glucose Lvl (test code = Glucose Lvl) 85 70-99 [facility]2018-03-14 10:09:00 Test Item Value Reference Range Interpretation Comments AGAP (test code = AGAP) 15.7 10.0-20.0 [facility] CenterHyugfamHQWCGVOWOC4253-29-93 10:09:00 Test Item Value Reference Range Interpretation Comments Eosinophils # (test code 0.2 See_Comment [A utomated message] The = Eosinophils #) system whic h generated this result tra nsmitted reference range : <=0.5. The reference r yared was not used to int erpret this result as normal/abnormal . [facility] CenterIgitjouASLZACPWGW6104-02-15 10:09:00 Test Item Value Reference Range Interpretation Comments Monocytes # (test code 0.6 See_Comment [Aut omated message] The = Monocytes #) system which generated this result tra nsmitted reference range : <=0.8. The reference r yared was not used to int erpret this result as normal/abnormal . [facility] CenterCcpyixnHEVVQFGTLN9154-11-40 10:09:00 Test Item Value Reference Range Interpretation Comments Microcyte (test code = 1+ *ABN*(12/20/17 Microcyte) 5:09 AM) [facility] CenterQonynxxZQEOOEZTQE5390-35-59 10:09:00 Test Item Value Reference Range Interpretation Comments Segs (test code = Segs) 71.0 45.0-75.0 [facility] CenterKsypuxdVXPPMCBQNU4681-66-42 10:09:00 Test Item Value Reference Range Interpretation Comments Lymphocytes # (test code = Lymphocytes 1.0 1.0-5.5 #) [facility] CenterUwvxmnlZYIZGUZULL8960-76-85 10:09:00 Test Item Value Reference Range Interpretation Comments Basophils (test code = 0.8 See_Comment [Aut omated message] The Basophils) system which ge nerated this result tra nsmitted reference range : <=1.0. The reference r yared was not used to int erpret this result as normal/abnormal . [facility] CenterJwlnmzbJQJBRRXFVR7678-86-35 10:09:00 Test Item Value Reference Range Interpretation Comments Segs-Bands # (test code = Segs-Bands #) 4.6 1.5-8.1 [facility] CenterJbxtvukBYHKWXUOBQ6256-27-07 10:09:00 Test Item Value Reference Range Interpretation Comments Lymphocytes (test code = Lymphocytes) 15.7 20.0-40.0 [facility] CenterOhmytawEURTYDPSEN0795-59-82 10:09:00 Test Item Value Reference Range Interpretation Comments Eosinophils (test code = 3.1 See_Comment [A utomated message] The Eosinophils) system which ge nerated this result tra nsmitted reference range : <=4.0. The reference r ayred was not used to int erpret this result as normal/abnormal . [facility] CenterMkfeeglBBHHXFLYBH0438-59-83 10:09:00 Test Item Value Reference Range Interpretation Comments Monocytes (test code = Monocytes) 9.4 2.0-12.0 [facility] CenterJljbflqDDXPJWWLXT8281-61-84 10:09:00 Test Item Value Reference Range Interpretation Comments Platelet (test code = Platelet) 193 133-450 [facility] CenterAohdumuNLBDBMLOHL0176-00-95 10:09:00 Test Item Value Reference Range Interpretation Comments MCV (test code = MCV) 77.5 80.0-94.0 [facility]JhmnxpyCOHHEURWMI1425-46-72 10:09:00 Test Item Value Reference Range Interpretation Comments MCHC (test code = MCHC) 35.5 32.0-36.0 [facility] HospitalAjzmasnGSZMTXZTCZ4559-48-42 10:09:00 Test Item Value Reference Range Interpretation Comments MCH (test code = MCH) 27.5 pg 27.0-31.0 [facility] YrqoquuANCZEDQGYI5114-34-49 10:09:00 Test Item Value Reference Range Interpretation Comments RDW (test code = RDW) 14.1 11.5-14.5 [facility] XrsfjrjBGDUBLBYWQ3647-61-75 10:09:00 Test Item Value Reference Range Interpretation Comments MPV (test code = MPV) 7.7 7.4-10.4 [facility] HospitalQvvkwevWVHPXUOUGG4491-15-39 10:09:00 Test Item Value Reference Range Interpretation Comments Hct (test code = Hct) 23.5 42.0-54.0 [facility] QmgvnlvOSBYRAUZTT8065-08-25 10:09:00 Test Item Value Reference Range Interpretation Comments Hgb (test code = Hgb) 8.4 14.0-18.0 [facility] BcamacaPSHZENLIVJ9490-14-85 10:09:00 Test Item Value Reference Range Interpretation Comments RBC (test code = RBC) 3.03 4.70-6.10 [facility] HospitalJbwohlcHAGBZVBPWX4022-93-00 10:09:00 Test Item Value Reference Range Interpretation Comments WBC (test code = WBC) 6.5 3.7-10.4 [facility]annPARATHYROID [id number] 10:09:00 Test Item Value Reference Range Interpretation Comments Ca Norm WB (test code = Ca Norm WB) 0.86 1.05-1.25 [facility]annPAR[facility] [id number] 10:09:00 Test Item Value Reference Range Interpretation Comments Ca Ion WB (test code = Ca Ion WB) 0.86 1.05-1.25 [facility] AND [id number] 17:00:00 Test Item Value Reference Range Interpretation Comments Occult Bld Stl (test Positive *ABN*(12/19/17 code = Occult Bld Stl) 12:00 PM) [facility] AND [id number] 17:00:00 Test Item Value Reference Range Interpretation Comments Occult Bld Stl (test Positive *ABN*(12/19/17 code = Occult Bld Stl) 12:00 PM) [facility] AND [id number] 17:00:00 Test Item Value Reference Range Interpretation Comments Occult Bld Stl (test Positive *ABN*(12/19/17 code = Occult Bld Stl) 12:00 PM) [facility] AND [id number] 17:00:00 Test Item Value Reference Range Interpretation Comments Occult Bld Stl (test Positive *ABN*(12/19/17 code = Occult Bld Stl) 12:00 PM) [facility]2018-03-13 12:14:00 Test Item Value Reference Range Interpretation Comments Phosphorus (test code = Phosphorus) 8.2 2.5-4.5 [facility]2018-03-13 12:14:00 Test Item Value Reference Range Interpretation Comments A/G Ratio (test code = A/G Ratio) 0.8 1 0.7-1.6 [facility]2018-03-13 12:14:00 Test Item Value Reference Range Interpretation Comments AST (test code = AST) 9 See_Comment [Auto mated message] The system which ge nerated this result transmit emerson reference range : <=37. The reference range was not used to interpr et this result as erinn l/abnormal. [facility]2018-03-13 12:14:00 Test Item Value Reference Range Interpretation Comments ALT (test code = ALT) 10 See_Comment [Auto mated message] The system which ge nerated this result transmit emerson reference range : <=65. The reference range was not used to interpr et this result as erinn l/abnormal. [facility]2018-03-13 12:14:00 Test Item Value Reference Range Interpretation Comments Globulin (test code = Globulin) 3.5 2.7-4.2 [facility]2018-03-13 12:14:00 Test Item Value Reference Range Interpretation Comments Albumin Lvl (test code = Albumin Lvl) 2.7 3.5-5.0 [facility]2018-03-13 12:14:00 Test Item Value Reference Range Interpretation Comments eGFR (test code = eGFR) 4 [facility]2018-03-13 12:14:00 Test Item Value Reference Range Interpretation Comments Alk Phos (test code = Alk Phos) 100 39-136 [facility]2018-03-13 12:14:00 Test Item Value Reference Range Interpretation Comments Bili Total (test code = Bili Total) 0.3 0.2-1.3 [facility]2018-03-13 12:14:00 Test Item Value Reference Range Interpretation Comments Glucose Lvl (test code = Glucose Lvl) 88 70-99 [facility]2018-03-13 12:14:00 Test Item Value Reference Range Interpretation Comments Potassium Lvl (test code = Potassium 3.6 3.5-5.1 Lvl) [facility]2018-03-13 12:14:00 Test Item Value Reference Range Interpretation Comments Chloride Lvl (test code = Chloride Lvl) 95 95-109 [facility]2018-03-13 12:14:00 Test Item Value Reference Range Interpretation Comments Sodium Lvl (test code = Sodium Lvl) 135 135-145 [facility]2018-03-13 12:14:00 Test Item Value Reference Range Interpretation Comments BUN (test code = BUN) 103 7-22 [facility]2018-03-13 12:14:00 Test Item Value Reference Range Interpretation Comments Creatinine Lvl (test code = Creatinine 11.70 0.50-1.40 Lvl) [facility]2018-03-13 12:14:00 Test Item Value Reference Range Interpretation Comments B/C Ratio (test code = B/C Ratio) 9 1 6-25 [facility]2018-03-13 12:14:00 Test Item Value Reference Range Interpretation Comments Total Protein (test code = Total 6.2 6.4-8.4 Protein) [facility]2018-03-13 12:14:00 Test Item Value Reference Range Interpretation Comments Calcium Lvl (test code = Calcium Lvl) 6.5 8.5-10.5 [facility]2018-03-13 12:14:00 Test Item Value Reference Range Interpretation Comments AGAP (test code = AGAP) 14.6 10.0-20.0 [facility]2018-03-13 12:14:00 Test Item Value Reference Range Interpretation Comments CO2 (test code = CO2) 29 24-32 [facility]annPARATHYROID [id number] 12:14:00 Test Item Value Reference Range Interpretation Comments Ca Ion WB (test code = Ca Ion WB) 0.88 1.05-1.25 [facility]annPARATHYROID [id number] 12:14:00 Test Item Value Reference Range Interpretation Comments Ca Norm WB (test code = Ca Norm WB) 0.85 1.05-1.25 [facility]2018-03-13 12:14:00 Test Item Value Reference Range Interpretation Comments Phosphorus (test code = Phosphorus) 8.2 2.5-4.5 [facility]2018-03-13 12:14:00 Test Item Value Reference Range Interpretation Comments A/G Ratio (test code = A/G Ratio) 0.8 1 0.7-1.6 [facility]2018-03-13 12:14:00 Test Item Value Reference Range Interpretation Comments AST (test code = AST) 9 See_Comment [Auto mated message] The system which ge nerated this result transmit emerson reference range : <=37. The reference range was not used to interpr et this result as erinn l/abnormal. [facility]2018-03-13 12:14:00 Test Item Value Reference Range Interpretation Comments ALT (test code = ALT) 10 See_Comment [Auto mated message] The system which ge nerated this result transmit emerson reference range : <=65. The reference range was not used to interpr et this result as erinn l/abnormal. [facility]2018-03-13 12:14:00 Test Item Value Reference Range Interpretation Comments Globulin (test code = Globulin) 3.5 2.7-4.2 [facility]2018-03-13 12:14:00 Test Item Value Reference Range Interpretation Comments Albumin Lvl (test code = Albumin Lvl) 2.7 3.5-5.0 [facility]2018-03-13 12:14:00 Test Item Value Reference Range Interpretation Comments eGFR (test code = eGFR) 4 [facility]2018-03-13 12:14:00 Test Item Value Reference Range Interpretation Comments Alk Phos (test code = Alk Phos) 100 39-136 [facility]2018-03-13 12:14:00 Test Item Value Reference Range Interpretation Comments Bili Total (test code = Bili Total) 0.3 0.2-1.3 [facility]2018-03-13 12:14:00 Test Item Value Reference Range Interpretation Comments Glucose Lvl (test code = Glucose Lvl) 88 70-99 [facility]2018-03-13 12:14:00 Test Item Value Reference Range Interpretation Comments Potassium Lvl (test code = Potassium 3.6 3.5-5.1 Lvl) [facility]2018-03-13 12:14:00 Test Item Value Reference Range Interpretation Comments Chloride Lvl (test code = Chloride Lvl) 95 95-109 [facility]2018-03-13 12:14:00 Test Item Value Reference Range Interpretation Comments Sodium Lvl (test code = Sodium Lvl) 135 135-145 [facility]2018-03-13 12:14:00 Test Item Value Reference Range Interpretation Comments BUN (test code = BUN) 103 7-22 [facility]2018-03-13 12:14:00 Test Item Value Reference Range Interpretation Comments Creatinine Lvl (test code = Creatinine 11.70 0.50-1.40 Lvl) [facility]2018-03-13 12:14:00 Test Item Value Reference Range Interpretation Comments B/C Ratio (test code = B/C Ratio) 9 1 6-25 [facility]2018-03-13 12:14:00 Test Item Value Reference Range Interpretation Comments Total Protein (test code = Total 6.2 6.4-8.4 Protein) [facility]2018-03-13 12:14:00 Test Item Value Reference Range Interpretation Comments Calcium Lvl (test code = Calcium Lvl) 6.5 8.5-10.5 [facility]2018-03-13 12:14:00 Test Item Value Reference Range Interpretation Comments AGAP (test code = AGAP) 14.6 10.0-20.0 [facility]2018-03-13 12:14:00 Test Item Value Reference Range Interpretation Comments CO2 (test code = CO2) 29 24-32 [facility]2018-03-13 12:14:00 Test Item Value Reference Range Interpretation Comments Ca Ion WB (test code = Ca Ion WB) 0.88 1.05-1.25 [facility]2018-03-13 12:14:00 Test Item Value Reference Range Interpretation Comments Ca Norm WB (test code = Ca Norm WB) 0.85 1.05-1.25 [facility]2018-03-13 12:14:00 Test Item Value Reference Range Interpretation Comments Phosphorus (test code = Phosphorus) 8.2 2.5-4.5 [facility]2018-03-13 12:14:00 Test Item Value Reference Range Interpretation Comments A/G Ratio (test code = A/G Ratio) 0.8 1 0.7-1.6 [facility]2018-03-13 12:14:00 Test Item Value Reference Range Interpretation Comments AST (test code = AST) 9 See_Comment [Auto mated message] The system which ge nerated this result transmit emerson reference range : <=37. The reference range was not used to interpr et this result as erinn l/abnormal. [facility]2018-03-13 12:14:00 Test Item Value Reference Range Interpretation Comments ALT (test code = ALT) 10 See_Comment [Auto mated message] The system which ge nerated this result transmit emerson reference range : <=65. The reference range was not used to interpr et this result as erinn l/abnormal. [facility]2018-03-13 12:14:00 Test Item Value Reference Range Interpretation Comments Globulin (test code = Globulin) 3.5 2.7-4.2 [facility]2018-03-13 12:14:00 Test Item Value Reference Range Interpretation Comments Albumin Lvl (test code = Albumin Lvl) 2.7 3.5-5.0 [facility]2018-03-13 12:14:00 Test Item Value Reference Range Interpretation Comments eGFR (test code = eGFR) 4 [facility]2018-03-13 12:14:00 Test Item Value Reference Range Interpretation Comments Alk Phos (test code = Alk Phos) 100 39-136 [facility]2018-03-13 12:14:00 Test Item Value Reference Range Interpretation Comments Bili Total (test code = Bili Total) 0.3 0.2-1.3 [facility]2018-03-13 12:14:00 Test Item Value Reference Range Interpretation Comments Glucose Lvl (test code = Glucose Lvl) 88 70-99 [facility]2018-03-13 12:14:00 Test Item Value Reference Range Interpretation Comments Potassium Lvl (test code = Potassium 3.6 3.5-5.1 Lvl) [facility]2018-03-13 12:14:00 Test Item Value Reference Range Interpretation Comments Chloride Lvl (test code = Chloride Lvl) 95 95-109 [facility]2018-03-13 12:14:00 Test Item Value Reference Range Interpretation Comments Sodium Lvl (test code = Sodium Lvl) 135 135-145 [facility]2018-03-13 12:14:00 Test Item Value Reference Range Interpretation Comments BUN (test code = BUN) 103 7-22 [facility]2018-03-13 12:14:00 Test Item Value Reference Range Interpretation Comments Creatinine Lvl (test code = Creatinine 11.70 0.50-1.40 Lvl) [facility]2018-03-13 12:14:00 Test Item Value Reference Range Interpretation Comments B/C Ratio (test code = B/C Ratio) 9 1 6-25 [facility]2018-03-13 12:14:00 Test Item Value Reference Range Interpretation Comments Total Protein (test code = Total 6.2 6.4-8.4 Protein) [facility]2018-03-13 12:14:00 Test Item Value Reference Range Interpretation Comments Calcium Lvl (test code = Calcium Lvl) 6.5 8.5-10.5 [facility]2018-03-13 12:14:00 Test Item Value Reference Range Interpretation Comments AGAP (test code = AGAP) 14.6 10.0-20.0 [facility]2018-03-13 12:14:00 Test Item Value Reference Range Interpretation Comments CO2 (test code = CO2) 29 24-32 [facility] [id number] 12:14:00 Test Item Value Reference Range Interpretation Comments Ca Ion WB (test code = Ca Ion WB) 0.88 1.05-1.25 [facility]PAR[facility] [id number] 12:14:00 Test Item Value Reference Range Interpretation Comments Ca Norm WB (test code = Ca Norm WB) 0.85 1.05-1.25 [facility] [id number] 12:14:00 Test Item Value Reference Range Interpretation Comments Phosphorus (test code = Phosphorus) 8.2 2.5-4.5 [facility]2018-03-13 12:14:00 Test Item Value Reference Range Interpretation Comments A/G Ratio (test code = A/G Ratio) 0.8 1 0.7-1.6 [facility]2018-03-13 12:14:00 Test Item Value Reference Range Interpretation Comments AST (test code = AST) 9 See_Comment [Auto mated message] The system which ge nerated this result transmit emerson reference range : <=37. The reference range was not used to interpr et this result as erinn l/abnormal. [facility]2018-03-13 12:14:00 Test Item Value Reference Range Interpretation Comments ALT (test code = ALT) 10 See_Comment [Auto mated message] The system which ge nerated this result transmit emerson reference range : <=65. The reference range was not used to interpr et this result as erinn l/abnormal. [facility]2018-03-13 12:14:00 Test Item Value Reference Range Interpretation Comments Globulin (test code = Globulin) 3.5 2.7-4.2 [facility]2018-03-13 12:14:00 Test Item Value Reference Range Interpretation Comments Albumin Lvl (test code = Albumin Lvl) 2.7 3.5-5.0 [facility]2018-03-13 12:14:00 Test Item Value Reference Range Interpretation Comments eGFR (test code = eGFR) 4 [facility]2018-03-13 12:14:00 Test Item Value Reference Range Interpretation Comments Alk Phos (test code = Alk Phos) 100 39-136 [facility]2018-03-13 12:14:00 Test Item Value Reference Range Interpretation Comments Bili Total (test code = Bili Total) 0.3 0.2-1.3 [facility]2018-03-13 12:14:00 Test Item Value Reference Range Interpretation Comments Glucose Lvl (test code = Glucose Lvl) 88 70-99 [facility]2018-03-13 12:14:00 Test Item Value Reference Range Interpretation Comments Potassium Lvl (test code = Potassium 3.6 3.5-5.1 Lvl) [facility]2018-03-13 12:14:00 Test Item Value Reference Range Interpretation Comments Chloride Lvl (test code = Chloride Lvl) 95 95-109 [facility]2018-03-13 12:14:00 Test Item Value Reference Range Interpretation Comments Sodium Lvl (test code = Sodium Lvl) 135 135-145 [facility]2018-03-13 12:14:00 Test Item Value Reference Range Interpretation Comments BUN (test code = BUN) 103 7-22 [facility]2018-03-13 12:14:00 Test Item Value Reference Range Interpretation Comments Creatinine Lvl (test code = Creatinine 11.70 0.50-1.40 Lvl) [facility]2018-03-13 12:14:00 Test Item Value Reference Range Interpretation Comments B/C Ratio (test code = B/C Ratio) 9 1 6-25 [facility]2018-03-13 12:14:00 Test Item Value Reference Range Interpretation Comments Total Protein (test code = Total 6.2 6.4-8.4 Protein) [facility]2018-03-13 12:14:00 Test Item Value Reference Range Interpretation Comments Calcium Lvl (test code = Calcium Lvl) 6.5 8.5-10.5 [facility]2018-03-13 12:14:00 Test Item Value Reference Range Interpretation Comments AGAP (test code = AGAP) 14.6 10.0-20.0 [facility]2018-03-13 12:14:00 Test Item Value Reference Range Interpretation Comments CO2 (test code = CO2) 29 24-32 [facility] [id number] 12:14:00 Test Item Value Reference Range Interpretation Comments Ca Ion WB (test code = Ca Ion WB) 0.88 1.05-1.25 [facility]ATH[facility] [id number] 12:14:00 Test Item Value Reference Range Interpretation Comments Ca Norm WB (test code = Ca Norm WB) 0.85 1.05-1.25 [facility]2018-03-13 10:02:00 Test Item Value Reference Range Interpretation Comments eGFR (test code = eGFR) 4 [facility]2018-03-13 10:02:00 Test Item Value Reference Range Interpretation Comments Glucose Lvl (test code = Glucose Lvl) 92 70-99 [facility]2018-03-13 10:02:00 Test Item Value Reference Range Interpretation Comments Sodium Lvl (test code = Sodium Lvl) 138 135-145 [facility]2018-03-13 10:02:00 Test Item Value Reference Range Interpretation Comments Potassium Lvl (test code = Potassium 3.6 3.5-5.1 Lvl) [facility]2018-03-13 10:02:00 Test Item Value Reference Range Interpretation Comments BUN (test code = BUN) 97 7-22 [facility]2018-03-13 10:02:00 Test Item Value Reference Range Interpretation Comments Creatinine Lvl (test code = Creatinine 11.80 0.50-1.40 Lvl) [facility]2018-03-13 10:02:00 Test Item Value Reference Range Interpretation Comments Calcium Lvl (test code = Calcium Lvl) 6.8 8.5-10.5 [facility]2018-03-13 10:02:00 Test Item Value Reference Range Interpretation Comments CO2 (test code = CO2) 27 24-32 [facility]2018-03-13 10:02:00 Test Item Value Reference Range Interpretation Comments AGAP (test code = AGAP) 18.6 10.0-20.0 [facility]2018-03-13 10:02:00 Test Item Value Reference Range Interpretation Comments Chloride Lvl (test code = Chloride Lvl) 96 95-109 [facility]2018-03-13 10:02:00 Test Item Value Reference Range Interpretation Comments Magnesium Lvl (test code = Magnesium 1.8 1.8-2.4 Lvl) [facility]ooCSJYXDBLDR2275[facility] 10:02:00 Test Item Value Reference Range Interpretation Comments RDW (test code = RDW) 14.3 11.5-14.5 [facility] CenterJhabzdoOQYMTITCQT2861-99-16 10:02:00 Test Item Value Reference Range Interpretation Comments MCHC (test code = MCHC) 34.5 32.0-36.0 [facility] CenterQbslvvqPEMEMFORFS9671-64-87 10:02:00 Test Item Value Reference Range Interpretation Comments MCH (test code = MCH) 26.8 pg 27.0-31.0 [facility] CenterMqrlnukNBDTECRMSN1478-54-23 10:02:00 Test Item Value Reference Range Interpretation Comments MPV (test code = MPV) 8.0 7.4-10.4 [facility] CenterJrppcmoBOYPJGKXER8198-21-76 10:02:00 Test Item Value Reference Range Interpretation Comments Platelet (test code = Platelet) 200 133-450 [facility] CenterEwkcfztBYCFVXNNLK0412-80-45 10:02:00 Test Item Value Reference Range Interpretation Comments MCV (test code = MCV) 77.7 80.0-94.0 [facility] CenterKpmxaetUNZZYDBILP0809-03-02 10:02:00 Test Item Value Reference Range Interpretation Comments Hct (test code = Hct) 24.7 42.0-54.0 [facility] CenterBbetuztIWJJKVCMDS0512-18-08 10:02:00 Test Item Value Reference Range Interpretation Comments Hgb (test code = Hgb) 8.5 14.0-18.0 [facility] CenterCcjzbzgZWHYFCSZXW0853-76-93 10:02:00 Test Item Value Reference Range Interpretation Comments RBC (test code = RBC) 3.17 4.70-6.10 [facility] CenterOoevukuPQUSVTLJMJ1861-88-56 10:02:00 Test Item Value Reference Range Interpretation Comments WBC (test code = WBC) 6.6 3.7-10.4 [facility] CenterSedoeskFVSZPQHWAH1590-15-06 10:02:00 Test Item Value Reference Range Interpretation Comments Monocytes # (test code 0.7 See_Comment [Aut omated message] The = Monocytes #) system which generated this result tra nsmitted reference range : <=0.8. The reference r yared was not used to int erpret this result as normal/abnormal . [facility] CenterThrxngzMMCBJBVKYC2728-44-78 10:02:00 Test Item Value Reference Range Interpretation Comments Eosinophils # (test code 0.2 See_Comment [A utomated message] The = Eosinophils #) system whic h generated this result tra nsmitted reference range : <=0.5. The reference r yared was not used to int erpret this result as normal/abnormal . [facility] CenterSsmsjhnVMKRJNFHPJ3313-00-34 10:02:00 Test Item Value Reference Range Interpretation Comments Microcyte (test code = 1+ *ABN*(12/19/17 Microcyte) 5:02 AM) [facility] CenterNprbkwxYSXPEVABXL7716-46-58 10:02:00 Test Item Value Reference Range Interpretation Comments Lymphocytes # (test code = Lymphocytes 1.0 1.0-5.5 #) [facility] CenterPedyswsYNJCRZWKIF5348-67-59 10:02:00 Test Item Value Reference Range Interpretation Comments Basophils (test code = 0.6 See_Comment [Aut omated message] The Basophils) system which ge nerated this result tra nsmitted reference range : <=1.0. The reference r yared was not used to int erpret this result as normal/abnormal . [facility] CenterEzmqhynEUKRUATYVA4912-47-93 10:02:00 Test Item Value Reference Range Interpretation Comments Segs-Bands # (test code = Segs-Bands #) 4.7 1.5-8.1 [facility] CenterJblmcvcPTERLJRGPZ8113-39-73 10:02:00 Test Item Value Reference Range Interpretation Comments Monocytes (test code = Monocytes) 10.3 2.0-12.0 [facility] CenterDtwpknmCZVFHSLTXB7625-84-28 10:02:00 Test Item Value Reference Range Interpretation Comments Eosinophils (test code = 2.9 See_Comment [A utomated message] The Eosinophils) system which ge nerated this result tra nsmitted reference range : <=4.0. The reference r yared was not used to int erpret this result as normal/abnormal . [facility] CenterPtibxtbAWDGNQTLQW8073-13-04 10:02:00 Test Item Value Reference Range Interpretation Comments Lymphocytes (test code = Lymphocytes) 15.3 20.0-40.0 [facility] CenterYqvfzftOIDMZEDZNN9521-23-45 10:02:00 Test Item Value Reference Range Interpretation Comments Segs (test code = Segs) 70.9 45.0-75.0 [facility]2018-03-13 10:02:00 Test Item Value Reference Range Interpretation Comments Ca Ion WB (test code = Ca Ion WB) 0.88 1.05-1.25 [facility]2018-03-13 10:02:00 Test Item Value Reference Range Interpretation Comments Ca Norm WB (test code = Ca Norm WB) 0.88 1.05-1.25 [facility]2018-03-13 10:02:00 Test Item Value Reference Range Interpretation Comments eGFR (test code = eGFR) 4 [facility]2018-03-13 10:02:00 Test Item Value Reference Range Interpretation Comments Glucose Lvl (test code = Glucose Lvl) 92 70-99 [facility]2018-03-13 10:02:00 Test Item Value Reference Range Interpretation Comments Sodium Lvl (test code = Sodium Lvl) 138 135-145 [facility]2018-03-13 10:02:00 Test Item Value Reference Range Interpretation Comments Potassium Lvl (test code = Potassium 3.6 3.5-5.1 Lvl) [facility]2018-03-13 10:02:00 Test Item Value Reference Range Interpretation Comments BUN (test code = BUN) 97 7-22 [facility]2018-03-13 10:02:00 Test Item Value Reference Range Interpretation Comments Creatinine Lvl (test code = Creatinine 11.80 0.50-1.40 Lvl) [facility]2018-03-13 10:02:00 Test Item Value Reference Range Interpretation Comments Calcium Lvl (test code = Calcium Lvl) 6.8 8.5-10.5 [facility]2018-03-13 10:02:00 Test Item Value Reference Range Interpretation Comments CO2 (test code = CO2) 27 24-32 [facility]2018-03-13 10:02:00 Test Item Value Reference Range Interpretation Comments AGAP (test code = AGAP) 18.6 10.0-20.0 [facility]2018-03-13 10:02:00 Test Item Value Reference Range Interpretation Comments Chloride Lvl (test code = Chloride Lvl) 96 95-109 [facility]2018-03-13 10:02:00 Test Item Value Reference Range Interpretation Comments Magnesium Lvl (test code = Magnesium 1.8 1.8-2.4 Lvl) [facility] CenterVmhcbheBSQHCLENCA1428-92-87 10:02:00 Test Item Value Reference Range Interpretation Comments RDW (test code = RDW) 14.3 11.5-14.5 [facility] CenterWmsgiakOYXEQYESYH0707-93-10 10:02:00 Test Item Value Reference Range Interpretation Comments MCHC (test code = MCHC) 34.5 32.0-36.0 [facility] CenterLjiklpgPNJIZJJKUC0659-66-98 10:02:00 Test Item Value Reference Range Interpretation Comments MCH (test code = MCH) 26.8 pg 27.0-31.0 [facility] CenterNxkobxwJUVRHRXEZV3337-29-83 10:02:00 Test Item Value Reference Range Interpretation Comments MPV (test code = MPV) 8.0 7.4-10.4 [facility] CenterQsrkssrVEZAEFVCRQ6399-69-50 10:02:00 Test Item Value Reference Range Interpretation Comments Platelet (test code = Platelet) 200 133-450 [facility] CenterRrkrcirPXTBFNLXNQ0436-48-58 10:02:00 Test Item Value Reference Range Interpretation Comments MCV (test code = MCV) 77.7 80.0-94.0 [facility] CenterOtjpiriTNKEGJFWIT8593-81-77 10:02:00 Test Item Value Reference Range Interpretation Comments Hct (test code = Hct) 24.7 42.0-54.0 [facility] CenterSdrtqrcKJAGXLBQML8688-06-28 10:02:00 Test Item Value Reference Range Interpretation Comments Hgb (test code = Hgb) 8.5 14.0-18.0 [facility] CenterFnrlubvZPBMULCQLN3782-38-73 10:02:00 Test Item Value Reference Range Interpretation Comments RBC (test code = RBC) 3.17 4.70-6.10 [facility] CenterXtkjnoyKZLJTVJKRK0446-56-19 10:02:00 Test Item Value Reference Range Interpretation Comments WBC (test code = WBC) 6.6 3.7-10.4 [facility] CenterBbayanuJLDECRCNYD2170-60-85 10:02:00 Test Item Value Reference Range Interpretation Comments Monocytes # (test code 0.7 See_Comment [Aut omated message] The = Monocytes #) system which generated this result tra nsmitted reference range : <=0.8. The reference r yared was not used to int erpret this result as normal/abnormal . [facility] CenterYqmnwooRSSGFPDRBD2384-45-30 10:02:00 Test Item Value Reference Range Interpretation Comments Eosinophils # (test code 0.2 See_Comment [A utomated message] The = Eosinophils #) system whic h generated this result tra nsmitted reference range : <=0.5. The reference r yared was not used to int erpret this result as normal/abnormal . [facility] CenterZdcsymrGZATXHGLAK9082-86-22 10:02:00 Test Item Value Reference Range Interpretation Comments Microcyte (test code = 1+ *ABN*(12/19/17 Microcyte) 5:02 AM) [facility] CenterFsugjuxCUVASYHELG0714-77-55 10:02:00 Test Item Value Reference Range Interpretation Comments Lymphocytes # (test code = Lymphocytes 1.0 1.0-5.5 #) [facility] CenterKdtxhhfESUMUCOCLI0511-83-10 10:02:00 Test Item Value Reference Range Interpretation Comments Basophils (test code = 0.6 See_Comment [Aut omated message] The Basophils) system which ge nerated this result tra nsmitted reference range : <=1.0. The reference r yared was not used to int erpret this result as normal/abnormal . [facility] CenterTzpdrgyRWBKQLDBYY2448-63-30 10:02:00 Test Item Value Reference Range Interpretation Comments Segs-Bands # (test code = Segs-Bands #) 4.7 1.5-8.1 [facility] CenterCdfuxcjLNBPWLSMEU6769-67-58 10:02:00 Test Item Value Reference Range Interpretation Comments Monocytes (test code = Monocytes) 10.3 2.0-12.0 [facility] CenterDexhkxyYWLNYNIXSX6218-41-82 10:02:00 Test Item Value Reference Range Interpretation Comments Eosinophils (test code = 2.9 See_Comment [A utomated message] The Eosinophils) system which ge nerated this result tra nsmitted reference range : <=4.0. The reference r yared was not used to int erpret this result as normal/abnormal . [facility] CenterSnutbizZUNCNLKJJH6001-48-70 10:02:00 Test Item Value Reference Range Interpretation Comments Lymphocytes (test code = Lymphocytes) 15.3 20.0-40.0 [facility] CenterMhqjhmdZAFULTFQWD8785-05-65 10:02:00 Test Item Value Reference Range Interpretation Comments Segs (test code = Segs) 70.9 45.0-75.0 [facility] CMZFZSG9386-81-76 10:02:00 Test Item Value Reference Range Interpretation Comments Ca Ion WB (test code = Ca Ion WB) 0.88 1.05-1.25 [facility] SHVTPUN0299-73-83 10:02:00 Test Item Value Reference Range Interpretation Comments Ca Norm WB (test code = Ca Norm WB) 0.88 1.05-1.25 [facility]2018-03-13 10:02:00 Test Item Value Reference Range Interpretation Comments eGFR (test code = eGFR) 4 [facility]2018-03-13 10:02:00 Test Item Value Reference Range Interpretation Comments Glucose Lvl (test code = Glucose Lvl) 92 70-99 [facility]2018-03-13 10:02:00 Test Item Value Reference Range Interpretation Comments Sodium Lvl (test code = Sodium Lvl) 138 135-145 [facility]2018-03-13 10:02:00 Test Item Value Reference Range Interpretation Comments Potassium Lvl (test code = Potassium 3.6 3.5-5.1 Lvl) [facility]2018-03-13 10:02:00 Test Item Value Reference Range Interpretation Comments BUN (test code = BUN) 97 7-22 [facility]2018-03-13 10:02:00 Test Item Value Reference Range Interpretation Comments Creatinine Lvl (test code = Creatinine 11.80 0.50-1.40 Lvl) [facility]2018-03-13 10:02:00 Test Item Value Reference Range Interpretation Comments Calcium Lvl (test code = Calcium Lvl) 6.8 8.5-10.5 [facility]2018-03-13 10:02:00 Test Item Value Reference Range Interpretation Comments CO2 (test code = CO2) 27 24-32 [facility]2018-03-13 10:02:00 Test Item Value Reference Range Interpretation Comments AGAP (test code = AGAP) 18.6 10.0-20.0 [facility]2018-03-13 10:02:00 Test Item Value Reference Range Interpretation Comments Chloride Lvl (test code = Chloride Lvl) 96 95-109 [facility]2018-03-13 10:02:00 Test Item Value Reference Range Interpretation Comments Magnesium Lvl (test code = Magnesium 1.8 1.8-2.4 Lvl) [facility]mbaggpIYFVUMFPLB2533-65-67 10:02:00 Test Item Value Reference Range Interpretation Comments RDW (test code = RDW) 14.3 11.5-14.5 [facility] CenterPntqzetVAQUGCUVGL4800-65-36 10:02:00 Test Item Value Reference Range Interpretation Comments MCHC (test code = MCHC) 34.5 32.0-36.0 [facility] CenterQikgfmrNDWSCZHNEH4283-28-13 10:02:00 Test Item Value Reference Range Interpretation Comments MCH (test code = MCH) 26.8 pg 27.0-31.0 [facility] CenterNahmqhaJBGPDONOXA5787-86-07 10:02:00 Test Item Value Reference Range Interpretation Comments MPV (test code = MPV) 8.0 7.4-10.4 [facility] CenterMtognkaLFDSMNZYXZ1879-22-01 10:02:00 Test Item Value Reference Range Interpretation Comments Platelet (test code = Platelet) 200 133-450 [facility] CenterVtdwqudYDOTPMNOJT9722-54-07 10:02:00 Test Item Value Reference Range Interpretation Comments MCV (test code = MCV) 77.7 80.0-94.0 [facility] CenterUijyjxjLFFREQRCUC7123-79-40 10:02:00 Test Item Value Reference Range Interpretation Comments Hct (test code = Hct) 24.7 42.0-54.0 [facility] CenterTnfmwfvVOWKUYHZTT2680-48-98 10:02:00 Test Item Value Reference Range Interpretation Comments Hgb (test code = Hgb) 8.5 14.0-18.0 [facility] CenterIxwxkwkNMOYOQZHNK9418-01-70 10:02:00 Test Item Value Reference Range Interpretation Comments RBC (test code = RBC) 3.17 4.70-6.10 [facility] CenterTyihxkxQTPNZJPVMD2431-99-30 10:02:00 Test Item Value Reference Range Interpretation Comments WBC (test code = WBC) 6.6 3.7-10.4 [facility] CenterIyflsdaFWJBLMBZKV3331-38-25 10:02:00 Test Item Value Reference Range Interpretation Comments Monocytes # (test code 0.7 See_Comment [Aut omated message] The = Monocytes #) system which generated this result tra nsmitted reference range : <=0.8. The reference r yared was not used to int erpret this result as normal/abnormal . [facility] CenterCufayscOFGIAFGEAH8684-21-81 10:02:00 Test Item Value Reference Range Interpretation Comments Eosinophils # (test code 0.2 See_Comment [A utomated message] The = Eosinophils #) system whic h generated this result tra nsmitted reference range : <=0.5. The reference r yared was not used to int erpret this result as normal/abnormal . [facility] CenterKhscqueUOQOVEXKJA3875-63-06 10:02:00 Test Item Value Reference Range Interpretation Comments Microcyte (test code = 1+ *ABN*(12/19/17 Microcyte) 5:02 AM) [facility] CenterJirnaarRJQWIZSJEO3342-30-33 10:02:00 Test Item Value Reference Range Interpretation Comments Lymphocytes # (test code = Lymphocytes 1.0 1.0-5.5 #) [facility] CenterBtvragpPYYYYURUGF1094-19-21 10:02:00 Test Item Value Reference Range Interpretation Comments Basophils (test code = 0.6 See_Comment [Aut omated message] The Basophils) system which ge nerated this result tra nsmitted reference range : <=1.0. The reference r yared was not used to int erpret this result as normal/abnormal . [facility] CenterKizgpudUXCGIHTLJF1858-00-98 10:02:00 Test Item Value Reference Range Interpretation Comments Segs-Bands # (test code = Segs-Bands #) 4.7 1.5-8.1 [facility] CenterPgwjxeqSFCQJLJSZE9595-56-37 10:02:00 Test Item Value Reference Range Interpretation Comments Monocytes (test code = Monocytes) 10.3 2.0-12.0 [facility] CenterKreltayRFIAQMQNQY3255-76-27 10:02:00 Test Item Value Reference Range Interpretation Comments Eosinophils (test code = 2.9 See_Comment [A utomated message] The Eosinophils) system which ge nerated this result tra nsmitted reference range : <=4.0. The reference r yared was not used to int erpret this result as normal/abnormal . [facility] CenterAidiobpMPONQIDOUA7900-02-35 10:02:00 Test Item Value Reference Range Interpretation Comments Lymphocytes (test code = Lymphocytes) 15.3 20.0-40.0 [facility] CenterKdjiftjAZNXOVJVAT7207-90-00 10:02:00 Test Item Value Reference Range Interpretation Comments Segs (test code = Segs) 70.9 45.0-75.0 [facility]ATH[facility] AHFDETI3684-53-51 10:02:00 Test Item Value Reference Range Interpretation Comments Ca Ion WB (test code = Ca Ion WB) 0.88 1.05-1.25 [facility]PARATHYROID DOQRFYL1408-96-98 10:02:00 Test Item Value Reference Range Interpretation Comments Ca Norm WB (test code = Ca Norm WB) 0.88 1.05-1.25 [facility]2018-03-13 10:02:00 Test Item Value Reference Range Interpretation Comments eGFR (test code = eGFR) 4 [facility]2018-03-13 10:02:00 Test Item Value Reference Range Interpretation Comments Glucose Lvl (test code = Glucose Lvl) 92 70-99 [facility]2018-03-13 10:02:00 Test Item Value Reference Range Interpretation Comments Sodium Lvl (test code = Sodium Lvl) 138 135-145 [facility]2018-03-13 10:02:00 Test Item Value Reference Range Interpretation Comments Potassium Lvl (test code = Potassium 3.6 3.5-5.1 Lvl) [facility]2018-03-13 10:02:00 Test Item Value Reference Range Interpretation Comments BUN (test code = BUN) 97 7-22 [facility]2018-03-13 10:02:00 Test Item Value Reference Range Interpretation Comments Creatinine Lvl (test code = Creatinine 11.80 0.50-1.40 Lvl) [facility]2018-03-13 10:02:00 Test Item Value Reference Range Interpretation Comments Calcium Lvl (test code = Calcium Lvl) 6.8 8.5-10.5 [facility]2018-03-13 10:02:00 Test Item Value Reference Range Interpretation Comments CO2 (test code = CO2) 27 24-32 [facility]2018-03-13 10:02:00 Test Item Value Reference Range Interpretation Comments AGAP (test code = AGAP) 18.6 10.0-20.0 [facility]2018-03-13 10:02:00 Test Item Value Reference Range Interpretation Comments Chloride Lvl (test code = Chloride Lvl) 96 95-109 [facility]2018-03-13 10:02:00 Test Item Value Reference Range Interpretation Comments Magnesium Lvl (test code = Magnesium 1.8 1.8-2.4 Lvl) [facility]BgzmhjyBSNTXXHKPI8210-16-51 10:02:00 Test Item Value Reference Range Interpretation Comments RDW (test code = RDW) 14.3 11.5-14.5 [facility] CenterTndyvkzFKGGRLBSLJ1971-81-74 10:02:00 Test Item Value Reference Range Interpretation Comments MCHC (test code = MCHC) 34.5 32.0-36.0 [facility] CenterBgxsfgyOYEXETPPBW8039-40-36 10:02:00 Test Item Value Reference Range Interpretation Comments MCH (test code = MCH) 26.8 pg 27.0-31.0 [facility] CenterKbwnyoyIRGVFUALKD5848-16-29 10:02:00 Test Item Value Reference Range Interpretation Comments MPV (test code = MPV) 8.0 7.4-10.4 [facility] CenterGmuflxtGCDZBFLEFY5634-77-24 10:02:00 Test Item Value Reference Range Interpretation Comments Platelet (test code = Platelet) 200 133-450 [facility] CenterAjnnmqmPCFURRJYQK1607-00-39 10:02:00 Test Item Value Reference Range Interpretation Comments MCV (test code = MCV) 77.7 80.0-94.0 [facility] CenterCuagzmmCKRFACTLMM8150-09-27 10:02:00 Test Item Value Reference Range Interpretation Comments Hct (test code = Hct) 24.7 42.0-54.0 [facility] CenterHbtpiknRFYAIDKAYU4367-45-09 10:02:00 Test Item Value Reference Range Interpretation Comments Hgb (test code = Hgb) 8.5 14.0-18.0 [facility] CenterEvkcimfVYSUFUMTNG4435-93-80 10:02:00 Test Item Value Reference Range Interpretation Comments RBC (test code = RBC) 3.17 4.70-6.10 [facility] CenterPwntggxUDXUDTFQLC3368-10-01 10:02:00 Test Item Value Reference Range Interpretation Comments WBC (test code = WBC) 6.6 3.7-10.4 [facility] CenterWjupujqSPWBEJTRVO5197-46-33 10:02:00 Test Item Value Reference Range Interpretation Comments Monocytes # (test code 0.7 See_Comment [Aut omated message] The = Monocytes #) system which generated this result tra nsmitted reference range : <=0.8. The reference r yared was not used to int erpret this result as normal/abnormal . [facility] CenterJdssghtSGPBGUDCMM6156-32-01 10:02:00 Test Item Value Reference Range Interpretation Comments Eosinophils # (test code 0.2 See_Comment [A utomated message] The = Eosinophils #) system whic h generated this result tra nsmitted reference range : <=0.5. The reference r yared was not used to int erpret this result as normal/abnormal . [facility] CenterUszsynjXYIEYIGEZX6955-82-56 10:02:00 Test Item Value Reference Range Interpretation Comments Microcyte (test code = 1+ *ABN*(12/19/17 Microcyte) 5:02 AM) [facility] CenterUdjilwfIRHGDAVAQI4985-66-27 10:02:00 Test Item Value Reference Range Interpretation Comments Lymphocytes # (test code = Lymphocytes 1.0 1.0-5.5 #) [facility] CenterEomrcggOOWPTTMSRJ7583-60-71 10:02:00 Test Item Value Reference Range Interpretation Comments Basophils (test code = 0.6 See_Comment [Aut omated message] The Basophils) system which ge nerated this result tra nsmitted reference range : <=1.0. The reference r yared was not used to int erpret this result as normal/abnormal . [facility] CenterBqrwlmkXMRSMQTMVE8833-82-51 10:02:00 Test Item Value Reference Range Interpretation Comments Segs-Bands # (test code = Segs-Bands #) 4.7 1.5-8.1 [facility] CenterZtjfzerCPWUMZTMHX9638-14-28 10:02:00 Test Item Value Reference Range Interpretation Comments Monocytes (test code = Monocytes) 10.3 2.0-12.0 [facility] CenterUnzkelkGBOFTACIYD4331-97-21 10:02:00 Test Item Value Reference Range Interpretation Comments Eosinophils (test code = 2.9 See_Comment [A utomated message] The Eosinophils) system which ge nerated this result tra nsmitted reference range : <=4.0. The reference r yared was not used to int erpret this result as normal/abnormal . [facility] CenterYwzvimcZUHVBALIKE2432-93-33 10:02:00 Test Item Value Reference Range Interpretation Comments Lymphocytes (test code = Lymphocytes) 15.3 20.0-40.0 [facility] CenterUwwgypdRRXJECAZSN6882-56-12 10:02:00 Test Item Value Reference Range Interpretation Comments Segs (test code = Segs) 70.9 45.0-75.0 [facility] [facility]00 Test Item Value Reference Range Interpretation Comments Ca Ion WB (test code = Ca Ion WB) 0.88 1.05-1.25 [facility]2018-03-13 10:02:00 Test Item Value Reference Range Interpretation Comments Ca Norm WB (test code = Ca Norm WB) 0.88 1.05-1.25 [facility]2018-03-12 09:55:00 Test Item Value Reference Range Interpretation Comments Magnesium Lvl (test code = Magnesium 1.9 1.8-2.4 Lvl) [facility]2018-03-12 09:55:00 Test Item Value Reference Range Interpretation Comments Phosphorus (test code = Phosphorus) 8.8 2.5-4.5 [facility]2018-03-12 09:55:00 Test Item Value Reference Range Interpretation Comments Magnesium Lvl (test code = Magnesium 1.9 1.8-2.4 Lvl) [facility]2018-03-12 09:55:00 Test Item Value Reference Range Interpretation Comments Phosphorus (test code = Phosphorus) 8.8 2.5-4.5 [facility]2018-03-12 09:55:00 Test Item Value Reference Range Interpretation Comments Magnesium Lvl (test code = Magnesium 1.9 1.8-2.4 Lvl) [facility]2018-03-12 09:55:00 Test Item Value Reference Range Interpretation Comments Phosphorus (test code = Phosphorus) 8.8 2.5-4.5 [facility]2018-03-12 09:55:00 Test Item Value Reference Range Interpretation Comments Magnesium Lvl (test code = Magnesium 1.9 1.8-2.4 Lvl) [facility]2018-03-12 09:55:00 Test Item Value Reference Range Interpretation Comments Phosphorus (test code = Phosphorus) 8.8 2.5-4.5 [facility]VgoopzoFPCCECAWCE5489-78-35 09:32:00 Test Item Value Reference Range Interpretation Comments Microcyte (test code = 1+ *ABN*(12/17/17 Microcyte) 4:32 AM) [facility] CenterGueqdfeBJPFAAWGRK1741-58-83 09:32:00 Test Item Value Reference Range Interpretation Comments Eosinophils # (test code 0.2 See_Comment [A utomated message] The = Eosinophils #) system whic h generated this result tra nsmitted reference range : <=0.5. The reference r yared was not used to int erpret this result as normal/abnormal . [facility] CenterDoohdxuMOHDRPQFAO3323-56-77 09:32:00 Test Item Value Reference Range Interpretation Comments Monocytes # (test code 0.6 See_Comment [Aut omated message] The = Monocytes #) system which generated this result tra nsmitted reference range : <=0.8. The reference r yared was not used to int erpret this result as normal/abnormal . [facility] CenterUfkvbkuMPQPRLSHEA5713-13-51 09:32:00 Test Item Value Reference Range Interpretation Comments Lymphocytes # (test code = Lymphocytes 1.0 1.0-5.5 #) [facility] CenterXoxlrhnYMFDJXHHMW4027-53-82 09:32:00 Test Item Value Reference Range Interpretation Comments Segs-Bands # (test code = Segs-Bands #) 3.9 1.5-8.1 [facility] CenterOsazgosZCILZUQAHZ0292-62-18 09:32:00 Test Item Value Reference Range Interpretation Comments Basophils (test code = 0.6 See_Comment [Aut omated message] The Basophils) system which ge nerated this result tra nsmitted reference range : <=1.0. The reference r yared was not used to int erpret this result as normal/abnormal . [facility] CenterYmtfalwNJMRZVMXRX1169-60-44 09:32:00 Test Item Value Reference Range Interpretation Comments Eosinophils (test code = 2.7 See_Comment [A utomated message] The Eosinophils) system which ge nerated this result tra nsmitted reference range : <=4.0. The reference r yared was not used to int erpret this result as normal/abnormal . [facility] CenterOfxavwmCSNQJNHVZD8669-55-29 09:32:00 Test Item Value Reference Range Interpretation Comments Monocytes (test code = Monocytes) 10.4 2.0-12.0 [facility] CenterAearsziSYWWTLTVRK1592-42-63 09:32:00 Test Item Value Reference Range Interpretation Comments Lymphocytes (test code = Lymphocytes) 18.1 20.0-40.0 [facility] CenterEjeibldLDRCZJRSCJ7523-45-51 09:32:00 Test Item Value Reference Range Interpretation Comments Segs (test code = Segs) 68.2 45.0-75.0 [place] 101438-03-11 09:32:00 Test Item Value Reference Range Interpretation Comments Platelet (test code = Platelet) 213 133-450 [facility] CenterIatkvnbNFBUBVABXX5075-20-06 09:32:00 Test Item Value Reference Range Interpretation Comments RDW (test code = RDW) 14.3 11.5-14.5 [facility] CenterRcotbpoVRNRBDKFJI8423-99-67 09:32:00 Test Item Value Reference Range Interpretation Comments MPV (test code = MPV) 8.0 7.4-10.4 [facility] CenterChmqukqLZNXOFOEJZ8294-36-58 09:32:00 Test Item Value Reference Range Interpretation Comments MCH (test code = MCH) 27.4 pg 27.0-31.0 [facility] CenterXqjprfaOUNENHFBLE9338-15-51 09:32:00 Test Item Value Reference Range Interpretation Comments MCV (test code = MCV) 78.6 80.0-94.0 [facility] CenterSmtigaqLRMLWVBAIN8810-36-30 09:32:00 Test Item Value Reference Range Interpretation Comments Hct (test code = Hct) 22.8 42.0-54.0 [facility] CenterZjbaxeaRBWAKJQAOV8288-90-00 09:32:00 Test Item Value Reference Range Interpretation Comments MCHC (test code = MCHC) 34.9 32.0-36.0 [facility] CenterUouholbSZCNAOCPAW4019-85-40 09:32:00 Test Item Value Reference Range Interpretation Comments Hgb (test code = Hgb) 7.9 14.0-18.0 [facility] CenterPdctxzlUJCHHWUIXR8562-74-07 09:32:00 Test Item Value Reference Range Interpretation Comments RBC (test code = RBC) 2.90 4.70-6.10 [facility] CenterMyodibbPGSYGNUWBG8654-12-58 09:32:00 Test Item Value Reference Range Interpretation Comments WBC (test code = WBC) 5.7 3.7-10.4 [facility] CenterKmcabamVMRQPPDUSZ9563-25-65 09:32:00 Test Item Value Reference Range Interpretation Comments Sed Rate (test code = 80 See_Comment [Auto mated message] The Sed Rate) system which ge nerated this result transmit emerson reference range : <=15. The reference range was not used to interpr et this result as erinn l/abnormal. [facility]LtsdmdlMDXWGISCMI6082-43-55 09:32:00 Test Item Value Reference Range Interpretation Comments Tot Prot (SPE) (test code = Tot Prot 7.0 6.4-8.4 (SPE)) [facility] HospitalAdhbpdbKGPYFMWHWF6998-63-83 09:32:00 Test Item Value Reference Range Interpretation Comments SPE Interp (test Total protein and serum code = SPE Interp) albumin are within normal limits. Serum capillary protein electrophoresis shows an elevated alpha-1 globulin fraction. No monoclonal proteins are identified. The electrophoretic pattern is consistent with the acute phase of an inflammatory process. Clinical correlation is required. Interpretation performed at [facility]. [facility] HospitalRpceyvfWYQULXMZKD5006-38-26 09:32:00 Test Item Value Reference Range Interpretation Comments Gamma Glob (test code = Gamma Glob) 1.13 0.71-1.57 [facility] HospitalEvtyuujNDWJMCKIDB0123-11-93 09:32:00 Test Item Value Reference Range Interpretation Comments Beta Glob (test code = Beta Glob) 0.83 0.50-1.15 [facility] HospitalPhybuxpZNMFDFZPMH0737-78-49 09:32:00 Test Item Value Reference Range Interpretation Comments Alpha 2 Glob (test code = Alpha 2 Glob) 0.85 0.45-1.00 [facility] HospitalGqzhhnxQRZZLBVPJM3667-34-38 09:32:00 Test Item Value Reference Range Interpretation Comments Alpha 1 Glob (test code = Alpha 1 Glob) 0.48 0.18-0.41 [facility] HospitalQvjtmosCFUYRJCMNN8390-00-74 09:32:00 Test Item Value Reference Range Interpretation Comments Albumin (SPE) (test code = Albumin 3.72 3.57-5.55 (SPE)) [facility] HospitalKxrztqnLXMHJONHNW7010-89-21 09:32:00 Test Item Value Reference Range Interpretation Comments Beta % (test code = Beta %) 11.8 7.8-13.7 [facility] HospitalWgmrfxnRKOYPACDVQ3489-92-32 09:32:00 Test Item Value Reference Range Interpretation Comments Gamma % (test code = Gamma %) 16.2 11.1-18.7 [facility] HospitalXlruhiiTHLJLIKLIX4117-26-21 09:32:00 Test Item Value Reference Range Interpretation Comments Alpha 2 % (test code = Alpha 2 %) 12.1 7.0-11.9 [facility] HospitalOrbhimiXZOXSPPUWT7597-67-31 09:32:00 Test Item Value Reference Range Interpretation Comments Alpha 1 % (test code = Alpha 1 %) 6.8 2.8-4.9 [facility] HospitalAcxmwzmOETDTFXEKG2670-97-15 09:32:00 Test Item Value Reference Range Interpretation Comments Albumin % (test code = Albumin %) 53.1 55.8-66.1 [facility] HospitalUjmitvdZUDMCVRYCW6599-74-21 09:32:00 Test Item Value Reference Range Interpretation Comments C3 Complement (test code = C3 91 88-201 Complement) [facility] HospitalVjmokepMJEPTFLWSR2953-24-70 09:32:00 Test Item Value Reference Range Interpretation Comments MIKE Ser Pattern (test See interpretation. code = MIKE Ser Pattern) [facility] HospitalXgkezvaDCOSMWEYQR8267-39-75 09:32:00 Test Item Value Reference Range Interpretation Comments MIKE Ser Interp Serum immunofixation (test code = MIKE electrophoresis reveals a Ser Interp) polyclonal pattern of immunoglobulins. No monoclonal proteins are identified. Interpretation performed at [facility]. [facility] HospitalDqyjxhvSTURWNKYVV4420-97-61 09:32:00 Test Item Value Reference Range Interpretation Comments C4 Complement (test code = C4 29 16-47 Complement) [facility] HospitalFltpljqRWKAWNEWLE2603-99-89 09:32:00 Test Item Value Reference Range Interpretation Comments P-ANCA (test code = Negative (12/17/17 4:32 P-ANCA) AM) [facility] HospitalHmsbfreXWWRHHBIWK5452-01-89 09:32:00 Test Item Value Reference Range Interpretation Comments C-ANCA (test code = Negative (12/17/17 4:32 C-ANCA) AM) [facility] HospitalChecapkUDKIKYKZPC1711-04-89 09:32:00 Test Item Value Reference Range Interpretation Comments Hep Bs Ag (test code Negative *NA*(12/17/17 = Hep Bs Ag) 4:32 AM) [facility] HospitalDjedxzlAADWMCCIVK3930-84-92 09:32:00 Test Item Value Reference Range Interpretation Comments Hep Bs Ab (test code = Hep Bs Ab) no gt [facility] HospitalExswakiSTBNNXLPGO1475-07-79 09:32:00 Test Item Value Reference Range Interpretation Comments Hep B Core Ab (test Negative *NA*(12/17/17 code = Hep B Core Ab) 4:32 AM) [facility] HospitalFqqifafSASSFECPPW1000-52-16 09:32:00 Test Item Value Reference Range Interpretation Comments DNA Ab (DS) (test Negative (12/17/17 4:32 code = DNA Ab (DS)) AM) [facility] HospitalVfrliisAILFLCNQLZ9252-77-18 09:32:00 Test Item Value Reference Range Interpretation Comments [place]/Lambda Free Light Chains Ratio 3.42 0.26-1.65 (test code = [place]/Lambda Free Light Chains Ratio) [facility] HospitalMgiqrwvIYIIJOPKKM0567-06-38 09:32:00 Test Item Value Reference Range Interpretation Comments [place] Free Light Chains (test code = 203.40 3.30-19.40 [place] Free [place] Chains) [facility] HospitalPtajjufJCASIINEWU4384-81-14 09:32:00 Test Item Value Reference Range Interpretation Comments Lambda Free Light Chains (test code = 59.41 5.70-26.30 Lambda Free Light Chains) [facility] HospitalOpzrvduXXKXUHQJNM3317-47-92 09:32:00 Test Item Value Reference Range Interpretation Comments CHRISTINA (test code = CHRISTINA) Negative (12/17/17 4:32 AM) [facility] HospitalMwagmkmNXCYWGODMQ4451-12-81 09:32:00 Test Item Value Reference Range Interpretation Comments RF Qnt (test code = no gt See_Comment [Automa emerson message] The RF Qnt) system which ge nerated this result transmit emerson reference range : <=20. The reference range was not used to interpr et this result as erinn l/abnormal. [facility] CenterRebfipzEUXPZPJUNH7703-57-97 09:32:00 Test Item Value Reference Range Interpretation Comments Microcyte (test code = 1+ *ABN*(12/17/17 Microcyte) 4:32 AM) [facility] CenterYvcfxfgHQQESKGYFH5181-66-02 09:32:00 Test Item Value Reference Range Interpretation Comments Eosinophils # (test code 0.2 See_Comment [A utomated message] The = Eosinophils #) system whic h generated this result tra nsmitted reference range : <=0.5. The reference r yared was not used to int erpret this result as normal/abnormal . [facility] CenterOgphusqQHLBMVAPBW1449-72-53 09:32:00 Test Item Value Reference Range Interpretation Comments Monocytes # (test code 0.6 See_Comment [Aut omated message] The = Monocytes #) system which generated this result tra nsmitted reference range : <=0.8. The reference r yared was not used to int erpret this result as normal/abnormal . [facility] CenterExtzsvsYGJRUZLNWS8487-41-86 09:32:00 Test Item Value Reference Range Interpretation Comments Lymphocytes # (test code = Lymphocytes 1.0 1.0-5.5 #) [facility] CenterVgzgppeKKFRRSIGOA4128-43-76 09:32:00 Test Item Value Reference Range Interpretation Comments Segs-Bands # (test code = Segs-Bands #) 3.9 1.5-8.1 [facility] CenterIfjbzffHESCIMFSYD9911-49-02 09:32:00 Test Item Value Reference Range Interpretation Comments Basophils (test code = 0.6 See_Comment [Aut omated message] The Basophils) system which ge nerated this result tra nsmitted reference range : <=1.0. The reference r yared was not used to int erpret this result as normal/abnormal . [facility] CenterYcplvajUJFLWLPVQW9194-42-76 09:32:00 Test Item Value Reference Range Interpretation Comments Eosinophils (test code = 2.7 See_Comment [A utomated message] The Eosinophils) system which ge nerated this result tra nsmitted reference range : <=4.0. The reference r yared was not used to int erpret this result as normal/abnormal . [facility] CenterOyqvroeWETBEMVCIW9811-89-83 09:32:00 Test Item Value Reference Range Interpretation Comments Monocytes (test code = Monocytes) 10.4 2.0-12.0 [facility] CenterFhtrqqsQSSQXZWJHN9176-13-17 09:32:00 Test Item Value Reference Range Interpretation Comments Lymphocytes (test code = Lymphocytes) 18.1 20.0-40.0 [facility] CenterQhezfhuXEEKOFLGGN4224-21-86 09:32:00 Test Item Value Reference Range Interpretation Comments Segs (test code = Segs) 68.2 45.0-75.0 [facility] CenterBtqqogsQJERZHIQMM3447-91-10 09:32:00 Test Item Value Reference Range Interpretation Comments Platelet (test code = Platelet) 213 133-450 [facility] CenterOrqynkoJUBYLOTNOS6965-45-69 09:32:00 Test Item Value Reference Range Interpretation Comments RDW (test code = RDW) 14.3 11.5-14.5 [facility] CenterZcozghpOBUWDXAWVN0991-66-00 09:32:00 Test Item Value Reference Range Interpretation Comments MPV (test code = MPV) 8.0 7.4-10.4 [facility] CenterQrghhpbKKEGYXHHNU0756-81-85 09:32:00 Test Item Value Reference Range Interpretation Comments MCH (test code = MCH) 27.4 pg 27.0-31.0 [facility] CenterReqnponSWPAEQNGZP3065-54-28 09:32:00 Test Item Value Reference Range Interpretation Comments MCV (test code = MCV) 78.6 80.0-94.0 [facility] CenterGnoqshoWDUXEJGWLG6957-61-33 09:32:00 Test Item Value Reference Range Interpretation Comments Hct (test code = Hct) 22.8 42.0-54.0 [facility] CenterWqnuttxSVYUBJKQCN9435-06-92 09:32:00 Test Item Value Reference Range Interpretation Comments MCHC (test code = MCHC) 34.9 32.0-36.0 [facility] CenterCfdhecvOLPQMYUMYB7715-91-81 09:32:00 Test Item Value Reference Range Interpretation Comments Hgb (test code = Hgb) 7.9 14.0-18.0 [facility] CenterCjufbsoQTMUOXRDSR0261-22-64 09:32:00 Test Item Value Reference Range Interpretation Comments RBC (test code = RBC) 2.90 4.70-6.10 [facility] CenterIbvxxueACUXEFROVS8088-09-43 09:32:00 Test Item Value Reference Range Interpretation Comments WBC (test code = WBC) 5.7 3.7-10.4 [facility] CenterUrqlixvHJIVJUGDNT7880-86-12 09:32:00 Test Item Value Reference Range Interpretation Comments Sed Rate (test code = 80 See_Comment [Auto mated message] The Sed Rate) system which ge nerated this result transmit emerson reference range : <=15. The reference range was not used to interpr et this result as erinn l/abnormal. [facility] HospitalTgcqmxwCRGJCNHUAC0079-04-86 09:32:00 Test Item Value Reference Range Interpretation Comments Tot Prot (SPE) (test code = Tot Prot 7.0 6.4-8.4 (SPE)) [facility] HospitalGrwqxxnBDCBKNPUJM6168-32-79 09:32:00 Test Item Value Reference Range Interpretation Comments SPE Interp (test Total protein and serum code = SPE Interp) albumin are within normal limits. Serum capillary protein electrophoresis shows an elevated alpha-1 globulin fraction. No monoclonal proteins are identified. The electrophoretic pattern is consistent with the acute phase of an inflammatory process. Clinical correlation is required. Interpretation performed at [facility]. [facility] HospitalFqtomdjJAYRGVPEUC1002-81-95 09:32:00 Test Item Value Reference Range Interpretation Comments Gamma Glob (test code = Gamma Glob) 1.13 0.71-1.57 [facility] HospitalEkydknpSBUZEXSKEM4019-48-20 09:32:00 Test Item Value Reference Range Interpretation Comments Beta Glob (test code = Beta Glob) 0.83 0.50-1.15 [facility] HospitalWfknbxiWCJZHGCMDC6315-43-57 09:32:00 Test Item Value Reference Range Interpretation Comments Alpha 2 Glob (test code = Alpha 2 Glob) 0.85 0.45-1.00 [facility] HospitalSyzfkczIGBPUNUIUR7523-53-48 09:32:00 Test Item Value Reference Range Interpretation Comments Alpha 1 Glob (test code = Alpha 1 Glob) 0.48 0.18-0.41 [facility] HospitalUhkpqmoDEXQOFDEJF2007-70-18 09:32:00 Test Item Value Reference Range Interpretation Comments Albumin (SPE) (test code = Albumin 3.72 3.57-5.55 (SPE)) [facility] HospitalVfgtzyoCAMHJDGOCZ7028-27-06 09:32:00 Test Item Value Reference Range Interpretation Comments Beta % (test code = Beta %) 11.8 7.8-13.7 [facility] HospitalYxvmrtbGHQTCZDZKX3187-15-07 09:32:00 Test Item Value Reference Range Interpretation Comments Gamma % (test code = Gamma %) 16.2 11.1-18.7 [facility] HospitalStzvbctBGKJTWMQHX3795-94-18 09:32:00 Test Item Value Reference Range Interpretation Comments Alpha 2 % (test code = Alpha 2 %) 12.1 7.0-11.9 [facility] HospitalFsweideGHNEJDQGGN9182-45-01 09:32:00 Test Item Value Reference Range Interpretation Comments Alpha 1 % (test code = Alpha 1 %) 6.8 2.8-4.9 [facility] HospitalXnpqxxkMOZPVASYAQ8685-87-62 09:32:00 Test Item Value Reference Range Interpretation Comments Albumin % (test code = Albumin %) 53.1 55.8-66.1 [facility] HospitalOrvgatvKQUBINQCKJ0760-48-00 09:32:00 Test Item Value Reference Range Interpretation Comments C3 Complement (test code = C3 91 88-201 Complement) [facility] HospitalWtgmvruGQNCPRVEMP4285-10-98 09:32:00 Test Item Value Reference Range Interpretation Comments MIKE Ser Pattern (test See interpretation. code = MIKE Ser Pattern) [facility] HospitalEcykonyIWMTGWIBSU7836-25-99 09:32:00 Test Item Value Reference Range Interpretation Comments MIKE Ser Interp Serum immunofixation (test code = MIKE electrophoresis reveals a Ser Interp) polyclonal pattern of immunoglobulins. No monoclonal proteins are identified. Interpretation performed at [facility]. [facility] HospitalQoyhlokVNNVCIZFDK7231-79-08 09:32:00 Test Item Value Reference Range Interpretation Comments C4 Complement (test code = C4 29 16-47 Complement) [facility] HospitalKdobwcoJYUYUWEGEB6888-43-59 09:32:00 Test Item Value Reference Range Interpretation Comments P-ANCA (test code = Negative (12/17/17 4:32 P-ANCA) AM) [facility] HospitalXynxpjuHKMWVCDSUM8821-63-73 09:32:00 Test Item Value Reference Range Interpretation Comments C-ANCA (test code = Negative (12/17/17 4:32 C-ANCA) AM) [facility] HospitalLjltfleOYJIQBRTQS0525-32-25 09:32:00 Test Item Value Reference Range Interpretation Comments Hep Bs Ag (test code Negative *NA*(12/17/17 = Hep Bs Ag) 4:32 AM) [facility] HospitalUuyjrehJGJAGKVICO5136-47-32 09:32:00 Test Item Value Reference Range Interpretation Comments Hep Bs Ab (test code = Hep Bs Ab) no gt [facility] HospitalDbmrwegBKVMQKHOKX1396-49-43 09:32:00 Test Item Value Reference Range Interpretation Comments Hep B Core Ab (test Negative *NA*(12/17/17 code = Hep B Core Ab) 4:32 AM) [facility] HospitalSefuukrQFKZSCWKVQ6508-90-11 09:32:00 Test Item Value Reference Range Interpretation Comments DNA Ab (DS) (test Negative (12/17/17 4:32 code = DNA Ab (DS)) AM) [facility] HospitalSnvsxjlAQUVFEDHDK9195-00-76 09:32:00 Test Item Value Reference Range Interpretation Comments [place]/Lambda Free Light Chains Ratio 3.42 0.26-1.65 (test code = [place]/Lambda Free Light Chains Ratio) [facility] HospitalWhtyszsINRMUWDVDV6790-05-92 09:32:00 Test Item Value Reference Range Interpretation Comments [place] Free [place] Chains (test code = 203.40 3.30-19.40 [place] Free [place] Chains) [facility] HospitalApkrriyZSTJNICAZE2065-89-37 09:32:00 Test Item Value Reference Range Interpretation Comments Lambda Free Light Chains (test code = 59.41 5.70-26.30 Lambda Free Light Chains) [facility] HospitalIjcciaiTYEFPLNXGC4883-26-78 09:32:00 Test Item Value Reference Range Interpretation Comments CHRISTINA (test code = CHRISTINA) Negative (12/17/17 4:32 AM) [facility] HospitalKnkeskcDAMJCJSKKW0038-97-92 09:32:00 Test Item Value Reference Range Interpretation Comments RF Qnt (test code = no gt See_Comment [Automa emerson message] The RF Qnt) system which ge nerated this result transmit emerson reference range : <=20. The reference range was not used to interpr et this result as erinn l/abnormal. [facility] CenterKutkrblAMYIZFKTQM4441-38-05 09:32:00 Test Item Value Reference Range Interpretation Comments Microcyte (test code = 1+ *ABN*(12/17/17 Microcyte) 4:32 AM) [facility] CenterPlstmotNTPREMVUKN4928-87-16 09:32:00 Test Item Value Reference Range Interpretation Comments Eosinophils # (test code 0.2 See_Comment [A utomated message] The = Eosinophils #) system whic h generated this result tra nsmitted reference range : <=0.5. The reference r yared was not used to int erpret this result as normal/abnormal . [facility] CenterYrmhvjoTEORMCCICM5790-25-22 09:32:00 Test Item Value Reference Range Interpretation Comments Monocytes # (test code 0.6 See_Comment [Aut omated message] The = Monocytes #) system which generated this result tra nsmitted reference range : <=0.8. The reference r yared was not used to int erpret this result as normal/abnormal . [facility] CenterHugcrfcVAIBXLYFGL0810-01-69 09:32:00 Test Item Value Reference Range Interpretation Comments Lymphocytes # (test code = Lymphocytes 1.0 1.0-5.5 #) [facility] CenterTkzjfwqGUTKGRWZTL1697-59-43 09:32:00 Test Item Value Reference Range Interpretation Comments Segs-Bands # (test code = Segs-Bands #) 3.9 1.5-8.1 [facility] CenterBvicsekWGCRDZGYYB3472-79-84 09:32:00 Test Item Value Reference Range Interpretation Comments Basophils (test code = 0.6 See_Comment [Aut omated message] The Basophils) system which ge nerated this result tra nsmitted reference range : <=1.0. The reference r yared was not used to int erpret this result as normal/abnormal . [facility] CenterEmmtcovHGYFDIBISA2123-02-56 09:32:00 Test Item Value Reference Range Interpretation Comments Eosinophils (test code = 2.7 See_Comment [A utomated message] The Eosinophils) system which ge nerated this result tra nsmitted reference range : <=4.0. The reference r yared was not used to int erpret this result as normal/abnormal . [facility] CenterGtbanqzUQGHWKHTBD5419-26-59 09:32:00 Test Item Value Reference Range Interpretation Comments Monocytes (test code = Monocytes) 10.4 2.0-12.0 [facility] CenterGbyzppbIPEONAXHQW8153-54-03 09:32:00 Test Item Value Reference Range Interpretation Comments Lymphocytes (test code = Lymphocytes) 18.1 20.0-40.0 [facility] CenterImocxqnPYSLGRYBFY6192-67-22 09:32:00 Test Item Value Reference Range Interpretation Comments Segs (test code = Segs) 68.2 45.0-75.0 [facility]TgmdhwjHVTSNOSIGD7376-93-32 09:32:00 Test Item Value Reference Range Interpretation Comments Platelet (test code = Platelet) 213 133-450 [facility] CenterXjdgbjqRUAJWTDAET9995-69-64 09:32:00 Test Item Value Reference Range Interpretation Comments RDW (test code = RDW) 14.3 11.5-14.5 [facility] CenterMuherbuIZBZHQIYZF9595-30-04 09:32:00 Test Item Value Reference Range Interpretation Comments MPV (test code = MPV) 8.0 7.4-10.4 [facility] CenterFtyhzzyOPQRCYORPC5882-38-02 09:32:00 Test Item Value Reference Range Interpretation Comments MCH (test code = MCH) 27.4 pg 27.0-31.0 [facility] CenterFjdfvbbHVOFJYFQWY6943-28-13 09:32:00 Test Item Value Reference Range Interpretation Comments MCV (test code = MCV) 78.6 80.0-94.0 [facility] CenterUmxbcniFGFUAHFSSK1244-58-32 09:32:00 Test Item Value Reference Range Interpretation Comments Hct (test code = Hct) 22.8 42.0-54.0 [facility] CenterEjayhriKZFHOGCXPD2304-44-83 09:32:00 Test Item Value Reference Range Interpretation Comments MCHC (test code = MCHC) 34.9 32.0-36.0 [place] [address]-03-11 09:32:00 Test Item Value Reference Range Interpretation Comments Hgb (test code = Hgb) 7.9 14.0-18.0 [facility] CenterNwyfknlCNQFIGFZTB7800-35-81 09:32:00 Test Item Value Reference Range Interpretation Comments RBC (test code = RBC) 2.90 4.70-6.10 [facility] CenterYxpfeukFBNQFGWXAK0472-90-65 09:32:00 Test Item Value Reference Range Interpretation Comments WBC (test code = WBC) 5.7 3.7-10.4 [place] [address]-03-11 09:32:00 Test Item Value Reference Range Interpretation Comments Sed Rate (test code = 80 See_Comment [Auto mated message] The Sed Rate) system which ge nerated this result transmit emerson reference range : <=15. The reference range was not used to interpr et this result as erinn l/abnormal. [place] [address]-03-11 09:32:00 Test Item Value Reference Range Interpretation Comments Tot Prot (SPE) (test code = Tot Prot 7.0 6.4-8.4 (SPE)) [facility] HospitalMnynstyVOIZSOYVKH3093-87-70 09:32:00 Test Item Value Reference Range Interpretation Comments SPE Interp (test Total protein and serum code = SPE Interp) albumin are within normal limits. Serum capillary protein electrophoresis shows an elevated alpha-1 globulin fraction. No monoclonal proteins are identified. The electrophoretic pattern is consistent with the acute phase of an inflammatory process. Clinical correlation is required. Interpretation performed at [facility]. [facility] HospitalQbrghwlFMRERDNPRJ3801-60-90 09:32:00 Test Item Value Reference Range Interpretation Comments Gamma Glob (test code = Gamma Glob) 1.13 0.71-1.57 [place] [address]-03-11 09:32:00 Test Item Value Reference Range Interpretation Comments Beta Glob (test code = Beta Glob) 0.83 0.50-1.15 [place] [address]-03-11 09:32:00 Test Item Value Reference Range Interpretation Comments Alpha 2 Glob (test code = Alpha 2 Glob) 0.85 0.45-1.00 [place] [address]-03-11 09:32:00 Test Item Value Reference Range Interpretation Comments Alpha 1 Glob (test code = Alpha 1 Glob) 0.48 0.18-0.41 [facility] HospitalYjyqyxoSTNLYWFZDL9947-44-74 09:32:00 Test Item Value Reference Range Interpretation Comments Albumin (SPE) (test code = Albumin 3.72 3.57-5.55 (SPE)) [facility] HospitalGazygfeQPPSJLPULR5497-83-96 09:32:00 Test Item Value Reference Range Interpretation Comments Beta % (test code = Beta %) 11.8 7.8-13.7 [place] [address]-03-11 09:32:00 Test Item Value Reference Range Interpretation Comments Gamma % (test code = Gamma %) 16.2 11.1-18.7 [facility] HospitalQkxfervCDAMFDJNFE2109-90-89 09:32:00 Test Item Value Reference Range Interpretation Comments Alpha 2 % (test code = Alpha 2 %) 12.1 7.0-11.9 [place] [address]-03-11 09:32:00 Test Item Value Reference Range Interpretation Comments Alpha 1 % (test code = Alpha 1 %) 6.8 2.8-4.9 [facility] HospitalEstilxqXZXKWYOUST5315-93-82 09:32:00 Test Item Value Reference Range Interpretation Comments Albumin % (test code = Albumin %) 53.1 55.8-66.1 [facility] HospitalGkznuqzTVEGWTJSYM2612-34-77 09:32:00 Test Item Value Reference Range Interpretation Comments C3 Complement (test code = C3 91 88-201 Complement) [facility] HospitalFkiziuvKDVYVGAAFN4329-89-06 09:32:00 Test Item Value Reference Range Interpretation Comments MIKE Ser Pattern (test See interpretation. code = MIKE Ser Pattern) [facility] HospitalXyjanjbCAFWACRFBC4885-14-68 09:32:00 Test Item Value Reference Range Interpretation Comments MIKE Ser Interp Serum immunofixation (test code = MIKE electrophoresis reveals a Ser Interp) polyclonal pattern of immunoglobulins. No monoclonal proteins are identified. Interpretation performed at [facility]. [facility] HospitalShwjdygEQZFBOWIDK9536-88-44 09:32:00 Test Item Value Reference Range Interpretation Comments C4 Complement (test code = C4 29 16-47 Complement) [facility] HospitalVwxkibcFTTXGFRGEO6253-72-64 09:32:00 Test Item Value Reference Range Interpretation Comments P-ANCA (test code = Negative (12/17/17 4:32 P-ANCA) AM) [place] 747858-03-11 09:32:00 Test Item Value Reference Range Interpretation Comments C-ANCA (test code = Negative (12/17/17 4:32 C-ANCA) AM) [facility] HospitalDkyjkapVSKTYYQFUN8790-87-68 09:32:00 Test Item Value Reference Range Interpretation Comments Hep Bs Ag (test code Negative *NA*(12/17/17 = Hep Bs Ag) 4:32 AM) [facility] HospitalWpvcrkeUBBQKNEAVE1384-37-61 09:32:00 Test Item Value Reference Range Interpretation Comments Hep Bs Ab (test code = Hep Bs Ab) no gt [facility] HospitalZbgzvaqJTWSDIKGGX0894-25-85 09:32:00 Test Item Value Reference Range Interpretation Comments Hep B Core Ab (test Negative *NA*(12/17/17 code = Hep B Core Ab) 4:32 AM) [facility] HospitalMptoannBGDLOGAFBG8555-70-28 09:32:00 Test Item Value Reference Range Interpretation Comments DNA Ab (DS) (test Negative (12/17/17 4:32 code = DNA Ab (DS)) AM) [facility] HospitalTyxxdarHLKIDSZEMX1350-71-64 09:32:00 Test Item Value Reference Range Interpretation Comments [place]/Lambda Free Light Chains Ratio 3.42 0.26-1.65 (test code = [place]/Lambda Free Light Chains Ratio) [facility] HospitalWwzmifpUHBDBFFTGG1066-29-69 09:32:00 Test Item Value Reference Range Interpretation Comments [place] Free Light Chains (test code = 203.40 3.30-19.40 [place] Free [place] Chains) [facility] HospitalVealpuzAQBNMSSQSM9085-40-06 09:32:00 Test Item Value Reference Range Interpretation Comments Lambda Free Light Chains (test code = 59.41 5.70-26.30 Lambda Free Light Chains) [facility] HospitalYsdzvqmSLZNTSILFF4356-71-26 09:32:00 Test Item Value Reference Range Interpretation Comments CHRISTINA (test code = CHRISTINA) Negative (12/17/17 4:32 AM) [facility] HospitalBswfhpgUTGZJTNGXW1903-41-13 09:32:00 Test Item Value Reference Range Interpretation Comments RF Qnt (test code = no gt See_Comment [Automa emerson message] The RF Qnt) system which ge nerated this result transmit emerson reference range : <=20. The reference range was not used to interpr et this result as erinn l/abnormal. [facility] HospitalWbynhrhZCVOKSBXTI0855-23-49 09:32:00 Test Item Value Reference Range Interpretation Comments Microcyte (test code = 1+ *ABN*(12/17/17 Microcyte) 4:32 AM) [facility] CenterNngdzkdWYNEAOTYQG5580-58-90 09:32:00 Test Item Value Reference Range Interpretation Comments Eosinophils # (test code 0.2 See_Comment [A utomated message] The = Eosinophils #) system [facility] h generated this result tra nsmitted reference range : <=0.5. The reference r yared was not used to int erpret this result as normal/abnormal . [facility] CenterCeoylfnOVPXQGJKVO6017-55-42 09:32:00 Test Item Value Reference Range Interpretation Comments Monocytes # (test code 0.6 See_Comment [Aut omated message] The = Monocytes #) system which generated this result tra nsmitted reference range : <=0.8. The reference r yared was not used to int erpret this result as normal/abnormal . [facility] CenterPmvkbtlTXZRMUDKLH4424-21-91 09:32:00 Test Item Value Reference Range Interpretation Comments Lymphocytes # (test code = Lymphocytes 1.0 1.0-5.5 #) [facility] CenterTczoficBDKDKXJQAF7802-23-91 09:32:00 Test Item Value Reference Range Interpretation Comments Segs-Bands # (test code = Segs-Bands #) 3.9 1.5-8.1 [facility] CenterVfwxyfqTPDZIOYPAH0864-33-96 09:32:00 Test Item Value Reference Range Interpretation Comments Basophils (test code = 0.6 See_Comment [Aut omated message] The Basophils) system which ge nerated this result tra nsmitted reference range : <=1.0. The reference r yared was not used to int erpret this result as normal/abnormal . [facility] CenterFjfjdnqDKLVWJMMES1215-57-14 09:32:00 Test Item Value Reference Range Interpretation Comments Eosinophils (test code = 2.7 See_Comment [A utomated message] The Eosinophils) system which ge nerated this result tra nsmitted reference range : <=4.0. The reference r yared was not used to int erpret this result as normal/abnormal . [facility] CenterQghmytqTYACLZCMOU9053-13-75 09:32:00 Test Item Value Reference Range Interpretation Comments Monocytes (test code = Monocytes) 10.4 2.0-12.0 [place]438-03-11 09:32:00 Test Item Value Reference Range Interpretation Comments Lymphocytes (test code = Lymphocytes) 18.1 20.0-40.0 [facility] CenterMrtxhujVPNZMTDVGK0784-50-29 09:32:00 Test Item Value Reference Range Interpretation Comments Segs (test code = Segs) 68.2 45.0-75.0 [facility] CenterRxmmjbsKREZPANSAI3531-97-47 09:32:00 Test Item Value Reference Range Interpretation Comments Platelet (test code = Platelet) 213 133-450 [facility] CenterIdqredjHYDOASRIDN8359-03-67 09:32:00 Test Item Value Reference Range Interpretation Comments RDW (test code = RDW) 14.3 11.5-14.5 [facility] CenterNmcnbyaBWWKLHMQPK6015-69-27 09:32:00 Test Item Value Reference Range Interpretation Comments MPV (test code = MPV) 8.0 7.4-10.4 [facility] CenterYvuptkiEOBDYNQLCH1549-93-98 09:32:00 Test Item Value Reference Range Interpretation Comments MCH (test code = MCH) 27.4 pg 27.0-31.0 [facility] CenterNsejazrUVNIZRNFCC4017-99-60 09:32:00 Test Item Value Reference Range Interpretation Comments MCV (test code = MCV) 78.6 80.0-94.0 [facility] CenterHbloglxVMNOLLITBI0996-76-82 09:32:00 Test Item Value Reference Range Interpretation Comments Hct (test code = Hct) 22.8 42.0-54.0 [facility] CenterBdmxfiyYCWDXJQDOU1558-97-32 09:32:00 Test Item Value Reference Range Interpretation Comments MCHC (test code = MCHC) 34.9 32.0-36.0 [facility] CenterFkyhqpxIIOEUTJZDD6576-84-30 09:32:00 Test Item Value Reference Range Interpretation Comments Hgb (test code = Hgb) 7.9 14.0-18.0 [facility] CenterMsdrlusHHAKGKZFOW7305-35-09 09:32:00 Test Item Value Reference Range Interpretation Comments RBC (test code = RBC) 2.90 4.70-6.10 [facility] CenterPdzomhxPMDDEDBUWY6764-53-36 09:32:00 Test Item Value Reference Range Interpretation Comments WBC (test code = WBC) 5.7 3.7-10.4 [facility] CenterYglsnvuHVCUEDNBTU0766-76-06 09:32:00 Test Item Value Reference Range Interpretation Comments Sed Rate (test code = 80 See_Comment [Auto mated message] The Sed Rate) system which ge nerated this result transmit emerson reference range : <=15. The reference range was not used to interpr et this result as erinn l/abnormal. [facility] HospitalVuxnyaqYCICKQTHKA0642-84-40 09:32:00 Test Item Value Reference Range Interpretation Comments Tot Prot (SPE) (test code = Tot Prot 7.0 6.4-8.4 (SPE)) [facility] HospitalYkktacrMWSYODTCJB7080-65-80 09:32:00 Test Item Value Reference Range Interpretation Comments SPE Interp (test Total protein and serum code = SPE Interp) albumin are within normal limits. Serum capillary protein electrophoresis shows an elevated alpha-1 globulin fraction. No monoclonal proteins are identified. The electrophoretic pattern is consistent with the acute phase of an inflammatory process. Clinical correlation is required. Interpretation performed at [facility]. [facility] HospitalNcjllxiOTVLIHLHHZ2392-96-01 09:32:00 Test Item Value Reference Range Interpretation Comments Gamma Glob (test code = Gamma Glob) 1.13 0.71-1.57 [facility] HospitalYutxenjGRXUTSGQGA9263-68-30 09:32:00 Test Item Value Reference Range Interpretation Comments Beta Glob (test code = Beta Glob) 0.83 0.50-1.15 [facility] HospitalXmxzsrcHKBSYMLQRJ4212-42-52 09:32:00 Test Item Value Reference Range Interpretation Comments Alpha 2 Glob (test code = Alpha 2 Glob) 0.85 0.45-1.00 [facility] HospitalOramnmzGAXQZVGORY2805-35-44 09:32:00 Test Item Value Reference Range Interpretation Comments Alpha 1 Glob (test code = Alpha 1 Glob) 0.48 0.18-0.41 [place] [address]-03-11 09:32:00 Test Item Value Reference Range Interpretation Comments Albumin (SPE) (test code = Albumin 3.72 3.57-5.55 (SPE)) [facility] HospitalHxjmciaAPOGDPMVXG1981-08-48 09:32:00 Test Item Value Reference Range Interpretation Comments Beta % (test code = Beta %) 11.8 7.8-13.7 [place] 747858-03-11 09:32:00 Test Item Value Reference Range Interpretation Comments Gamma % (test code = Gamma %) 16.2 11.1-18.7 [facility] HospitalLydbhpvAJTKLTJBDK6801-83-89 09:32:00 Test Item Value Reference Range Interpretation Comments Alpha 2 % (test code = Alpha 2 %) 12.1 7.0-11.9 [facility] HospitalClzlfdsCVKPILYCLA6434-40-76 09:32:00 Test Item Value Reference Range Interpretation Comments Alpha 1 % (test code = Alpha 1 %) 6.8 2.8-4.9 [facility] HospitalMpsjgevGLGWMEBADR8601-39-61 09:32:00 Test Item Value Reference Range Interpretation Comments Albumin % (test code = Albumin %) 53.1 55.8-66.1 [facility] HospitalSruhirnTQRNUGMYGM8951-11-31 09:32:00 Test Item Value Reference Range Interpretation Comments C3 Complement (test code = C3 91 88-201 Complement) [facility] HospitalLoqyejhEXOFQNIQRP8794-90-26 09:32:00 Test Item Value Reference Range Interpretation Comments MIKE Ser Pattern (test See interpretation. code = MIKE Ser Pattern) [facility] HospitalWikarehRETLAFITSQ0667-06-24 09:32:00 Test Item Value Reference Range Interpretation Comments MIKE Ser Interp Serum immunofixation (test code = MIKE electrophoresis reveals a Ser Interp) polyclonal pattern of immunoglobulins. No monoclonal proteins are identified. Interpretation performed at [facility]. [facility] HospitalVsjkypvMQFJHMMKCX9229-39-74 09:32:00 Test Item Value Reference Range Interpretation Comments C4 Complement (test code = C4 29 16-47 Complement) [facility] HospitalHwvdscaRHTPNLPKPE1405-54-66 09:32:00 Test Item Value Reference Range Interpretation Comments P-ANCA (test code = Negative (12/17/17 4:32 P-ANCA) AM) [facility] HospitalYpilaqwRFDLFOBHAH4348-25-51 09:32:00 Test Item Value Reference Range Interpretation Comments C-ANCA (test code = Negative (12/17/17 4:32 C-ANCA) AM) [facility] HospitalVcrkvyqLUSLHTDNHO1176-52-72 09:32:00 Test Item Value Reference Range Interpretation Comments Hep Bs Ag (test code Negative *NA*(12/17/17 = Hep Bs Ag) 4:32 AM) [facility] HospitalKrrsvimWLVPYUICDJ1991-51-80 09:32:00 Test Item Value Reference Range Interpretation Comments Hep Bs Ab (test code = Hep Bs Ab) no gt [facility] HospitalCtpqmqkLDYXWKTYZW7466-71-15 09:32:00 Test Item Value Reference Range Interpretation Comments Hep B Core Ab (test Negative *NA*(12/17/17 code = Hep B Core Ab) 4:32 AM) [facility] HospitalDqdavjtIIGEENRIRF8745-78-86 09:32:00 Test Item Value Reference Range Interpretation Comments DNA Ab (DS) (test Negative (12/17/17 4:32 code = DNA Ab (DS)) AM) [facility] HospitalShqyaewDMVZELBZUD7166-93-62 09:32:00 Test Item Value Reference Range Interpretation Comments [place]/Lambda Free Light Chains Ratio 3.42 0.26-1.65 (test code = [place]/Lambda Free Light Chains Ratio) [facility] HospitalRdfowdfCEACIRDYRH0670-65-37 09:32:00 Test Item Value Reference Range Interpretation Comments [place] Free Light Chains (test code = 203.40 3.30-19.40 [place] Free [place] Chains) [facility] HospitalGtmbvwnIQSJAFTLBC5065-02-09 09:32:00 Test Item Value Reference Range Interpretation Comments Lambda Free Light Chains (test code = 59.41 5.70-26.30 Lambda Free Light Chains) [facility] HospitalNfssmwzCOBFLBKCIN6450-15-12 09:32:00 Test Item Value Reference Range Interpretation Comments CHRISTINA (test code = CHRISTINA) Negative (12/17/17 4:32 AM) [facility] HospitalCmwatnzKFBPLSLMJP2922-75-43 09:32:00 Test Item Value Reference Range Interpretation Comments RF Qnt (test code = no gt See_Comment [Automa emerson message] The RF Qnt) system which ge nerated this result transmit emerson reference range : <=20. The reference range was not used to interpr et this result as erinn l/abnormal. [facility]2018-03-09 22:29:00 Test Item Value Reference Range Interpretation Comments % Satur Fe (test code = % Satur Fe) 12 12-57 [facility]2018-03-09 22:29:00 Test Item Value Reference Range Interpretation Comments UIBC (test code = UIBC) 238 110-370 [facility]2018-03-09 22:29:00 Test Item Value Reference Range Interpretation Comments TIBC (test code = TIBC) 272 228-428 [facility]2018-03-09 22:29:00 Test Item Value Reference Range Interpretation Comments Iron (test code = Iron) 34 45-160 [facility]2018-03-09 22:29:00 Test Item Value Reference Range Interpretation Comments Ferritin Lvl (test code = Ferritin Lvl) 266 22-275 [facility]2018-03-09 22:29:00 Test Item Value Reference Range Interpretation Comments Vitamin B12 Lvl (test code = Vitamin [phone] B12 Lvl) [facility]2018-03-09 22:29:00 Test Item Value Reference Range Interpretation Comments Folate Lvl (test code = Folate Lvl) 19.0 [facility] HospitalYourListen.com EJUTA4494-81-38 22:29:00 Test Item Value Reference Range Interpretation Comments Vitamin D, 25-OH, Total (test code = 12.3 30.0-100.0 Vitamin D, 25-OH, Total) [facility] HospitalPARATHYROID LZHWVHN3627-06-17 22:29:00 Test Item Value Reference Range Interpretation Comments PTH Intact (test code = PTH Intact) 396.7 11.1-79.5 [facility]2018-03-09 22:29:00 Test Item Value Reference Range Interpretation Comments % Satur Fe (test code = % Satur Fe) 12 12-57 [facility]2018-03-09 22:29:00 Test Item Value Reference Range Interpretation Comments UIBC (test code = UIBC) 238 110-370 [facility]2018-03-09 22:29:00 Test Item Value Reference Range Interpretation Comments TIBC (test code = TIBC) 272 228-428 [facility]2018-03-09 22:29:00 Test Item Value Reference Range Interpretation Comments Iron (test code = Iron) 34 45-160 [facility] MAKGF2437-91-90 22:29:00 Test Item Value Reference Range Interpretation Comments Ferritin Lvl (test code = Ferritin Lvl) 266 22-275 [facility]2018-03-09 22:29:00 Test Item Value Reference Range Interpretation Comments Vitamin B12 Lvl (test code = Vitamin 212 469-7032 B12 Lvl) [facility]2018-03-09 22:29:00 Test Item Value Reference Range Interpretation Comments Folate Lvl (test code = Folate Lvl) 19.0 [facility]2018-03-09 22:29:00 Test Item Value Reference Range Interpretation Comments Vitamin D, 25-OH, Total (test code = 12.3 30.0-100.0 Vitamin D, 25-OH, Total) [facility] JVEASOR6832-82-77 22:29:00 Test Item Value Reference Range Interpretation Comments PTH Intact (test code = PTH Intact) 396.7 11.1-79.5 [facility]2018-03-09 22:29:00 Test Item Value Reference Range Interpretation Comments % Satur Fe (test code = % Satur Fe) 12 [facility] TOGSR0611-19-23 22:29:00 Test Item Value Reference Range Interpretation Comments UIBC (test code = UIBC) 238 110-370 [facility]2018-03-09 22:29:00 Test Item Value Reference Range Interpretation Comments TIBC (test code = TIBC) 272 228-428 [facility]2018-03-09 22:29:00 Test Item Value Reference Range Interpretation Comments Iron (test code = Iron) 34 45-160 [facility]2018-03-09 22:29:00 Test Item Value Reference Range Interpretation Comments Ferritin Lvl (test code = Ferritin Lvl) 266 22-275 [facility]2018-03-09 22:29:00 Test Item Value Reference Range Interpretation Comments Vitamin B12 Lvl (test code = Vitamin 623 510-0900 B12 Lvl) [facility]2018-03-09 22:29:00 Test Item Value Reference Range Interpretation Comments Folate Lvl (test code = Folate Lvl) 19.0 [facility] HospitalCHEM HAPDJ6742-15-66 22:29:00 Test Item Value Reference Range Interpretation Comments Vitamin D, 25-OH, Total (test code = 12.3 30.0-100.0 Vitamin D, 25-OH, Total) [facility] HospitalATHYROID ACSLPUN1838-65-75 22:29:00 Test Item Value Reference Range Interpretation Comments PTH Intact (test code = PTH Intact) 396.7 11.1-79.5 [facility]2018-03-09 22:29:00 Test Item Value Reference Range Interpretation Comments % Satur Fe (test code = % Satur Fe) 12 [facility] RKBFF8219-11-43 22:29:00 Test Item Value Reference Range Interpretation Comments UIBC (test code = UIBC) 238 110-370 [facility]2018-03-09 22:29:00 Test Item Value Reference Range Interpretation Comments TIBC (test code = TIBC) 272 228-428 [facility]2018-03-09 22:29:00 Test Item Value Reference Range Interpretation Comments Iron (test code = Iron) 34 45-160 [facility] GIMKF4974-64-10 22:29:00 Test Item Value Reference Range Interpretation Comments Ferritin Lvl (test code = Ferritin Lvl) 266 22-275 [facility]2018-03-09 22:29:00 Test Item Value Reference Range Interpretation Comments Vitamin B12 Lvl (test code = Vitamin 107 167-6520 B12 Lvl) [facility] RPUGJ6767-35-82 22:29:00 Test Item Value Reference Range Interpretation Comments Folate Lvl (test code = Folate Lvl) 19.0 [facility] HospitalCHEM KOJDH2756-38-89 22:29:00 Test Item Value Reference Range Interpretation Comments Vitamin D, 25-OH, Total (test code = 12.3 30.0-100.0 Vitamin D, 25-OH, Total) [facility] HospitalPARATHYROID FMPWQLE1310-27-40 22:29:00 Test Item Value Reference Range Interpretation Comments PTH Intact (test code = PTH Intact) 396.7 11.1-79.5 [facility] HospitalYluhimtMLBFQEWCNC4184-58-53 20:13:00 Test Item Value Reference Range Interpretation Comments Retic Auto (test code = Retic Auto) 1.5 0.5-1.5 [facility]KognacqIBRSXTGIXE1696-79-58 20:13:00 Test Item Value Reference Range Interpretation Comments Retic Auto (test code = Retic Auto) 1.5 0.5-1.5 [facility] HospitalXvmncfaTKYOTXIZCQ3080-36-15 20:13:00 Test Item Value Reference Range Interpretation Comments Retic Auto (test code = Retic Auto) 1.5 0.5-1.5 [facility]OczadddRRROIABDLT9175-10-02 20:13:00 Test Item Value Reference Range Interpretation Comments Retic Auto (test code = Retic Auto) 1.5 0.5-1.5 [facility] [id number] 20:12:00 Test Item Value Reference Range Interpretation Comments Troponin-I (test code no gt See_Comment [Auto mated message] The = Troponin-I) system which g enerated this result transmit emerson reference range : <=0.40. The reference r yared was not used to interpr et this result as erinn l/abnormal. [facility] [employer] [id number] 20:12:00 Test Item Value Reference Range Interpretation Comments Total CK (test code = Total CK) 380 12-191 [facility] [id number] 20:12:00 Test Item Value Reference Range Interpretation Comments CK MB (test code = CK MB) 5.4 0.5-3.6 [facility] [id number] 20:12:00 Test Item Value Reference Range Interpretation Comments CK MB Index (test 1.4 1 See_Comment [Automate d message] The code = CK MB Index) system w [facility] generated this result transmit emerson reference range : <=2.5. The reference range was not used to interpr et this result as erinn l/abnormal. [facility] [employer] [id number] 20:12:00 Test Item Value Reference Range Interpretation Comments Phosphorus (test code = >13.5 mg/dL 2.5-4.5 Phosphorus) [facility] [employer] [id number] 20:12:00 Test Item Value Reference Range Interpretation Comments Bili Total (test code = Bili Total) 0.4 0.2-1.3 [facility] [employer] [id number] 20:12:00 Test Item Value Reference Range Interpretation Comments ALT (test code = ALT) 14 See_Comment [Auto mated message] The system which ge nerated this result transmit emerson reference range : <=65. The reference range was not used to interpr et this result as erinn l/abnormal. [facility] [employer] [id number] 20:12:00 Test Item Value Reference Range Interpretation Comments AST (test code = AST) 17 See_Comment [Auto mated message] The system which ge nerated this result transmit emerson reference range : <=37. The reference range was not used to interpr et this result as erinn l/abnormal. [facility] [employer] [id number] 20:12:00 Test Item Value Reference Range Interpretation Comments Alk Phos (test code = Alk Phos) 115 39-136 [facility] [employer] [id number] 20:12:00 Test Item Value Reference Range Interpretation Comments Albumin Lvl (test code = Albumin Lvl) 3.4 3.5-5.0 [facility] [employer] [id number] 20:12:00 Test Item Value Reference Range Interpretation Comments Total Protein (test code = Total 7.4 6.4-8.4 Protein) [facility] [employer] [id number] 20:12:00 Test Item Value Reference Range Interpretation Comments B/C Ratio (test code = B/C Ratio) 9 1 6-25 [facility] [employer] [id number] 20:12:00 Test Item Value Reference Range Interpretation Comments A/G Ratio (test code = A/G Ratio) 0.8 1 0.7-1.6 [facility] [employer] [id number] 20:12:00 Test Item Value Reference Range Interpretation Comments Globulin (test code = Globulin) 4.0 2.7-4.2 [facility] [employer] [facility]2018-03-09 20:12:00 Test Item Value Reference Range Interpretation Comments Troponin-I (test code no gt See_Comment [Auto mated message] The = Troponin-I) system which g enerated this result transmit emerson reference range : <=0.40. The reference r yared was not used to interpr et this result as erinn l/abnormal. [facility] [employer]2018-03-09 20:12:00 Test Item Value Reference Range Interpretation Comments Total CK (test code = Total CK) 380 12-191 [facility] [employer] [facility]2018-03-09 20:12:00 Test Item Value Reference Range Interpretation Comments CK MB (test code = CK MB) 5.4 0.5-3.6 [facility] [employer] [facility]2018-03-09 20:12:00 Test Item Value Reference Range Interpretation Comments CK MB Index (test 1.4 1 See_Comment [Automate d message] The code = CK MB Index) system w [facility] generated this result transmit emerson reference range : <=2.5. The reference range was not used to interpr et this result as erinn l/abnormal. [employer]2018-03-09 20:12:00 Test Item Value Reference Range Interpretation Comments Phosphorus (test code = >13.5 mg/dL 2.5-4.5 Phosphorus) [facility] [id number] 20:12:00 Test Item Value Reference Range Interpretation Comments Bili Total (test code = Bili Total) 0.4 0.2-1.3 [facility] [id number] 20:12:00 Test Item Value Reference Range Interpretation Comments ALT (test code = ALT) 14 See_Comment [Auto mated message] The system which ge nerated this result transmit emerson reference range : <=65. The reference range was not used to interpr et this result as erinn l/abnormal. [facility] [id number] 20:12:00 Test Item Value Reference Range Interpretation Comments AST (test code = AST) 17 See_Comment [Auto mated message] The system which ge nerated this result transmit emerson reference range : <=37. The reference range was not used to interpr et this result as erinn l/abnormal. [facility] [id number] 20:12:00 Test Item Value Reference Range Interpretation Comments Alk Phos (test code = Alk Phos) 115 39-136 [facility] [id number] 20:12:00 Test Item Value Reference Range Interpretation Comments Albumin Lvl (test code = Albumin Lvl) 3.4 3.5-5.0 [facility] [id number] 20:12:00 Test Item Value Reference Range Interpretation Comments Total Protein (test code = Total 7.4 6.4-8.4 Protein) [facility] [id number] 20:12:00 Test Item Value Reference Range Interpretation Comments B/C Ratio (test code = B/C Ratio) 9 1 6-25 [facility] [id number] 20:12:00 Test Item Value Reference Range Interpretation Comments A/G Ratio (test code = A/G Ratio) 0.8 1 0.7-1.6 [facility] [id number] 20:12:00 Test Item Value Reference Range Interpretation Comments Globulin (test code = Globulin) 4.0 2.7-4.2 [facility] [id number] 20:12:00 Test Item Value Reference Range Interpretation Comments Troponin-I (test code no gt See_Comment [Auto mated message] The = Troponin-I) system which g enerated this result transmit emerson reference range : <=0.40. The reference r yared was not used to interpr et this result as erinn l/abnormal. [facility] [employer] [id number] 20:12:00 Test Item Value Reference Range Interpretation Comments Total CK (test code = Total CK) 380 12-191 [facility]CourseloadCARJauntAC [id number] 20:12:00 Test Item Value Reference Range Interpretation Comments CK MB (test code = CK MB) 5.4 0.5-3.6 [facility] [employer] [id number] 20:12:00 Test Item Value Reference Range Interpretation Comments CK MB Index (test 1.4 1 See_Comment [Automate d message] The code = CK MB Index) system w [facility] generated this result transmit emerson reference range : <=2.5. The reference range was not used to interpr et this result as erinn l/abnormal. [facility] [employer] [id number] 20:12:00 Test Item Value Reference Range Interpretation Comments Phosphorus (test code = >13.5 mg/dL 2.5-4.5 Phosphorus) [facility] [employer] [id number] 20:12:00 Test Item Value Reference Range Interpretation Comments Bili Total (test code = Bili Total) 0.4 0.2-1.3 [facility] [employer] [id number] 20:12:00 Test Item Value Reference Range Interpretation Comments ALT (test code = ALT) 14 See_Comment [Auto mated message] The system which ge nerated this result transmit emerson reference range : <=65. The reference range was not used to interpr et this result as erinn l/abnormal. [employer] [id number] 20:12:00 Test Item Value Reference Range Interpretation Comments AST (test code = AST) 17 See_Comment [Auto mated message] The system which ge nerated this result transmit emerson reference range : <=37. The reference range was not used to interpr et this result as erinn l/abnormal. [employer] [id number] 20:12:00 Test Item Value Reference Range Interpretation Comments Alk Phos (test code = Alk Phos) 115 39-136 [facility] [employer] [id number] 20:12:00 Test Item Value Reference Range Interpretation Comments Albumin Lvl (test code = Albumin Lvl) 3.4 3.5-5.0 [facility] [employer] [id number] 20:12:00 Test Item Value Reference Range Interpretation Comments Total Protein (test code = Total 7.4 6.4-8.4 Protein) [facility] [employer] [id number] 20:12:00 Test Item Value Reference Range Interpretation Comments B/C Ratio (test code = B/C Ratio) 9 1 6-25 [facility] [employer] [id number] 20:12:00 Test Item Value Reference Range Interpretation Comments A/G Ratio (test code = A/G Ratio) 0.8 1 0.7-1.6 [facility] [employer] [id number] 20:12:00 Test Item Value Reference Range Interpretation Comments Globulin (test code = Globulin) 4.0 2.7-4.2 [facility] [employer]2018-03-09 20:12:00 Test Item Value Reference Range Interpretation Comments Troponin-I (test code no gt See_Comment [Auto mated message] The = Troponin-I) system which g enerated this result transmit emerson reference range : <=0.40. The reference r yared was not used to interpr et this result as erinn l/abnormal. [facility] [employer]2018-03-09 20:12:00 Test Item Value Reference Range Interpretation Comments Total CK (test code = Total CK) 380 12-191 [facility] 20:12:00 Test Item Value Reference Range Interpretation Comments CK MB (test code = CK MB) 5.4 0.5-3.6 [facility] [id number] 20:12:00 Test Item Value Reference Range Interpretation Comments CK MB Index (test 1.4 1 See_Comment [Automate d message] The code = CK MB Index) system w [facility] generated this result transmit emerson reference range : <=2.5. The reference range was not used to interpr et this result as erinn l/abnormal. [facility] [employer] [id number] 20:12:00 Test Item Value Reference Range Interpretation Comments Phosphorus (test code = >13.5 mg/dL 2.5-4.5 Phosphorus) [facility] [id number] 20:12:00 Test Item Value Reference Range Interpretation Comments Bili Total (test code = Bili Total) 0.4 0.2-1.3 [facility]2018-03-09 20:12:00 Test Item Value Reference Range Interpretation Comments ALT (test code = ALT) 14 See_Comment [Auto mated message] The system which ge nerated this result transmit emerson reference range : <=65. The reference range was not used to interpr et this result as erinn l/abnormal. [facility] [id number] 20:12:00 Test Item Value Reference Range Interpretation Comments AST (test code = AST) 17 See_Comment [Auto mated message] The system which ge nerated this result transmit emerson reference range : <=37. The reference range was not used to interpr et this result as erinn l/abnormal. [facility] [id number] 20:12:00 Test Item Value Reference Range Interpretation Comments Alk Phos (test code = Alk Phos) 115 39-136 [facility] [id number] 20:12:00 Test Item Value Reference Range Interpretation Comments Albumin Lvl (test code = Albumin Lvl) 3.4 3.5-5.0 [facility] [id number] 20:12:00 Test Item Value Reference Range Interpretation Comments Total Protein (test code = Total 7.4 6.4-8.4 Protein) [facility] [id number] 20:12:00 Test Item Value Reference Range Interpretation Comments B/C Ratio (test code = B/C Ratio) 9 1 6-25 [facility] [id number] 20:12:00 Test Item Value Reference Range Interpretation Comments A/G Ratio (test code = A/G Ratio) 0.8 1 0.7-1.6 [facility] [id number] 20:12:00 Test Item Value Reference Range Interpretation Comments Globulin (test code = Globulin) 4.0 2.7-4.2 [facility]oad[facility] [id number] 16:39:00 Test Item Value Reference Range Interpretation Comments Troponin-I (test code no gt See_Comment [Auto mated message] The = Troponin-I) system which g enerated this result transmit emerson reference range : <=0.40. The reference r yared was not used to interpr et this result as erinn l/abnormal. [facility] [employer] [id number] 16:39:00 Test Item Value Reference Range Interpretation Comments Total CK (test code = Total CK) 350 12-191 [facility] [employer] [id number] 16:39:00 Test Item Value Reference Range Interpretation Comments CK MB (test code = CK MB) 4.8 0.5-3.6 [facility] [employer] [id number] 16:39:00 Test Item Value Reference Range Interpretation Comments CK MB Index (test 1.4 1 See_Comment [Automate d message] The code = CK MB Index) system w [employer] generated this result transmit emerson reference range : <=2.5. The reference range was not used to interpr et this result as erinn l/abnormal. [facility] [employer] [id number] 16:39:00 Test Item Value Reference Range Interpretation Comments Troponin-I (test code no gt See_Comment [Auto mated message] The = Troponin-I) system which g enerated this result transmit emerson reference range : <=0.40. The reference r yared was not used to interpr et this result as erinn l/abnormal. [facility] [employer] [id number] 16:39:00 Test Item Value Reference Range Interpretation Comments Total CK (test code = Total CK) 350 12-191 [facility] [employer] [id number] 16:39:00 Test Item Value Reference Range Interpretation Comments CK MB (test code = CK MB) 4.8 0.5-3.6 [facility] [employer]CAR[employer] [id number] 16:39:00 Test Item Value Reference Range Interpretation Comments CK MB Index (test 1.4 1 See_Comment [Automate d message] The code = CK MB Index) system w [employer] generated this result transmit emerson reference range : <=2.5. The reference range was not used to interpr et this result as erinn l/abnormal. [facility] [employer] [id number] 16:39:00 Test Item Value Reference Range Interpretation Comments Troponin-I (test code no gt See_Comment [Auto mated message] The = Troponin-I) system which g enerated this result transmit emerson reference range : <=0.40. The reference r yared was not used to interpr et this result as erinn l/abnormal. [facility] [id number] 16:39:00 Test Item Value Reference Range Interpretation Comments Total CK (test code = Total CK) 350 12-191 [facility] [id number] 16:39:00 Test Item Value Reference Range Interpretation Comments CK MB (test code = CK MB) 4.8 0.5-3.6 [facility] [id number] 16:39:00 Test Item Value Reference Range Interpretation Comments CK MB Index (test 1.4 1 See_Comment [Automate d message] The code = CK MB Index) system w [employer] generated this result transmit emerson reference range : <=2.5. The reference range was not used to interpr et this result as erinn l/abnormal. [facility] [id number] 16:39:00 Test Item Value Reference Range Interpretation Comments Troponin-I (test code no gt See_Comment [Auto mated message] The = Troponin-I) system which g enerated this result transmit emerson reference range : <=0.40. The reference r yared was not used to interpr et this result as erinn l/abnormal. [facility] [id number] 16:39:00 Test Item Value Reference Range Interpretation Comments Total CK (test code = Total CK) 350 12-191 [facility] HermannCARDIAC [id number] 16:39:00 Test Item Value Reference Range Interpretation Comments CK MB (test code = CK MB) 4.8 0.5-3.6 [facility] [id number] 16:39:00 Test Item Value Reference Range Interpretation Comments CK MB Index (test 1.4 1 See_Comment [Automate d message] The code = CK MB Index) system w [employer] generated this result transmit emerson reference range : <=2.5. The reference range was not used to interpr et this result as erinn l/abnormal. [facility] CleanEdisonannURINE [id number] 14:38:00 Test Item Value Reference Range Interpretation Comments U Potassium (test code = U Potassium) 20.0 [facility]2018-03-09 14:38:00 Test Item Value Reference Range Interpretation Comments U Sodium (test code = U Sodium) 31 [facility]2018-03-09 14:38:00 Test Item Value Reference Range Interpretation Comments U Chloride (test code = U Chloride) 22 [facility]2018-03-09 14:38:00 Test Item Value Reference Range Interpretation Comments U Protein (test code = U Protein) 246.9 [facility]2018-03-09 14:38:00 Test Item Value Reference Range Interpretation Comments U Prot/Creat (test code = U 4.35 1 Prot/Creat) [facility]2018-03-09 14:38:00 Test Item Value Reference Range Interpretation Comments U Creatinine (test code = U Creatinine) 56.70 [facility]2018-03-09 14:38:00 Test Item Value Reference Range Interpretation Comments U Osmolality (test code = U Osmolality) 223 300-800 [facility]2018-03-09 14:38:00 Test Item Value Reference Range Interpretation Comments U Eos (test code = U None Seen (12/15/17 8:38 Eos) AM) [facility]2018-03-09 14:38:00 Test Item Value Reference Range Interpretation Comments U Potassium (test code = U Potassium) 20.0 [facility]2018-03-09 14:38:00 Test Item Value Reference Range Interpretation Comments U Sodium (test code = U Sodium) 31 [facility]2018-03-09 14:38:00 Test Item Value Reference Range Interpretation Comments U Chloride (test code = U Chloride) 22 [facility]2018-03-09 14:38:00 Test Item Value Reference Range Interpretation Comments U Protein (test code = U Protein) 246.9 [facility]2018-03-09 14:38:00 Test Item Value Reference Range Interpretation Comments U Prot/Creat (test code = U 4.35 1 Prot/Creat) [facility]2018-03-09 14:38:00 Test Item Value Reference Range Interpretation Comments U Creatinine (test code = U Creatinine) 56.70 [facility]2018-03-09 14:38:00 Test Item Value Reference Range Interpretation Comments U Osmolality (test code = U Osmolality) 223 300-800 [facility]2018-03-09 14:38:00 Test Item Value Reference Range Interpretation Comments U Eos (test code = U None Seen (12/15/17 8:38 Eos) AM) [facility]2018-03-09 14:38:00 Test Item Value Reference Range Interpretation Comments U Potassium (test code = U Potassium) 20.0 [facility]2018-03-09 14:38:00 Test Item Value Reference Range Interpretation Comments U Sodium (test code = U Sodium) 31 [facility]2018-03-09 14:38:00 Test Item Value Reference Range Interpretation Comments U Chloride (test code = U Chloride) 22 [facility]2018-03-09 14:38:00 Test Item Value Reference Range Interpretation Comments U Protein (test code = U Protein) 246.9 [facility]2018-03-09 14:38:00 Test Item Value Reference Range Interpretation Comments U Prot/Creat (test code = U 4.35 1 Prot/Creat) [facility]2018-03-09 14:38:00 Test Item Value Reference Range Interpretation Comments U Creatinine (test code = U Creatinine) 56.70 [facility]2018-03-09 14:38:00 Test Item Value Reference Range Interpretation Comments U Osmolality (test code = U Osmolality) 223 300-800 [facility]2018-03-09 14:38:00 Test Item Value Reference Range Interpretation Comments U Eos (test code = U None Seen (12/15/17 8:38 Eos) AM) [facility]2018-03-09 14:38:00 Test Item Value Reference Range Interpretation Comments U Potassium (test code = U Potassium) 20.0 [facility]2018-03-09 14:38:00 Test Item Value Reference Range Interpretation Comments U Sodium (test code = U Sodium) 31 [facility]2018-03-09 14:38:00 Test Item Value Reference Range Interpretation Comments U Chloride (test code = U Chloride) 22 [facility]2018-03-09 14:38:00 Test Item Value Reference Range Interpretation Comments U Protein (test code = U Protein) 246.9 [facility]2018-03-09 14:38:00 Test Item Value Reference Range Interpretation Comments U Prot/Creat (test code = U 4.35 1 Prot/Creat) [facility]2018-03-09 14:38:00 Test Item Value Reference Range Interpretation Comments U Creatinine (test code = U Creatinine) 56.70 [facility]2018-03-09 14:38:00 Test Item Value Reference Range Interpretation Comments U Osmolality (test code = U Osmolality) 223 300-800 [facility]2018-03-09 14:38:00 Test Item Value Reference Range Interpretation Comments U Eos (test code = U None Seen (12/15/17 8:38 Eos) AM) [facility] AND [id number] 14:33:00 Test Item Value Reference Range Interpretation Comments Micro? (test code = Performed *NA*(12/15/17 Micro?) 8:33 AM) [facility] AND [id number] 14:33:00 Test Item Value Reference Range Interpretation Comments UA Urobilinogen (test code = UA <=1.0 mg/dL 0.1-1.0 Urobilinogen) [facility] AND [id number] 14:33:00 Test Item Value Reference Range Interpretation Comments UA Glucose (test code = UA Glucose) 50 [facility] AND [id number] 14:33:00 Test Item Value Reference Range Interpretation Comments UA Color (test code = UA Color) STRAW [facility] AND [id number] 14:33:00 Test Item Value Reference Range Interpretation Comments UA Nitrite (test code Negative (12/15/17 8:33 = UA Nitrite) AM) [facility] AND [id number] 14:33:00 Test Item Value Reference Range Interpretation Comments UA Blood (test code = Small *ABN*(12/15/17 UA Blood) 8:33 AM) [facility] AND [id number] 14:33:00 Test Item Value Reference Range Interpretation Comments UA Leuk Est (test Negative (12/15/17 8:33 code = UA Leuk Est) AM) [facility] AND [id number] 14:33:00 Test Item Value Reference Range Interpretation Comments UA WBC (test code = 3 See_Comment [Automa emerson message] The UA WBC) system which ge nerated this result transmit emerson reference range : <=5. The reference range was not used to interpr et this result as erinn l/abnormal. [facility] AND [id number] 14:33:00 Test Item Value Reference Range Interpretation Comments UA Sq Epi (test code = UA Sq Occasional /LPF Epi) [facility] AND [id number] 14:33:00 Test Item Value Reference Range Interpretation Comments UA Mucus (test code = UA Mucus) Few /LPF [facility] AND [id number] 14:33:00 Test Item Value Reference Range Interpretation Comments UA RBC (test code = 1 See_Comment [Automa emerson message] The UA RBC) system which ge nerated this result transmit emerson reference range : <=2. The reference range was not used to interpr et this result as erinn l/abnormal. [facility] AND [id number] 14:33:00 Test Item Value Reference Range Interpretation Comments UA Turbidity (test code Slight *ABN*(12/15/17 = UA Turbidity) 8:33 AM) [facility] AND [id number] 14:33:00 Test Item Value Reference Range Interpretation Comments UA Spec Grav (test code = UA Spec 1.008 1 Grav) [facility] AND [id number] 14:33:00 Test Item Value Reference Range Interpretation Comments UA Ketones (test code = UA Negative mg/dL Ket[place]) [facility] AND [id number] 14:33:00 Test Item Value Reference Range Interpretation Comments UA pH (test code = UA pH) 5.0 1 5.0-8.0 [facility] AND [id number] 14:33:00 Test Item Value Reference Range Interpretation Comments UA Bili (test code = Negative *NA*(12/15/17 UA Bili) 8:33 AM) [facility] AND [id number] 14:33:00 Test Item Value Reference Range Interpretation Comments UA Protein (test code = UA Protein) 100 mg/dL [facility] AND [id number] 14:33:00 Test Item Value Reference Range Interpretation Comments Micro? (test code = Performed *NA*(12/15/17 Micro?) 8:33 AM) [facility] AND [id number] 14:33:00 Test Item Value Reference Range Interpretation Comments UA Urobilinogen (test code = UA <=1.0 mg/dL 0.1-1.0 Urobilinogen) [facility] AND [id number] 14:33:00 Test Item Value Reference Range Interpretation Comments UA Glucose (test code = UA Glucose) 50 [facility] AND [id number] 14:33:00 Test Item Value Reference Range Interpretation Comments UA Color (test code = UA Color) STRAW [facility] AND [id number] 14:33:00 Test Item Value Reference Range Interpretation Comments UA Nitrite (test code Negative (12/15/17 8:33 = UA Nitrite) AM) [facility] AND [id number] 14:33:00 Test Item Value Reference Range Interpretation Comments UA Blood (test code = Small *ABN*(12/15/17 UA Blood) 8:33 AM) [facility] AND [id number] 14:33:00 Test Item Value Reference Range Interpretation Comments UA Leuk Est (test Negative (12/15/17 8:33 code = UA Leuk Est) AM) [facility] AND [id number] 14:33:00 Test Item Value Reference Range Interpretation Comments UA WBC (test code = 3 See_Comment [Automa emerson message] The UA WBC) system which ge nerated this result transmit emerson reference range : <=5. The reference range was not used to interpr et this result as erinn l/abnormal. [facility] AND [id number] 14:33:00 Test Item Value Reference Range Interpretation Comments UA Sq Epi (test code = UA Sq Occasional /LPF Epi) [facility] AND [id number] 14:33:00 Test Item Value Reference Range Interpretation Comments UA Mucus (test code = UA Mucus) Few /LPF [facility] AND [id number] 14:33:00 Test Item Value Reference Range Interpretation Comments UA RBC (test code = 1 See_Comment [Automa emerson message] The UA RBC) system which ge nerated this result transmit emerson reference range : <=2. The reference range was not used to interpr et this result as erinn l/abnormal. [facility] AND [id number] 14:33:00 Test Item Value Reference Range Interpretation Comments UA Turbidity (test code Slight *ABN*(12/15/17 = UA Turbidity) 8:33 AM) [facility] AND [id number] 14:33:00 Test Item Value Reference Range Interpretation Comments UA Spec Grav (test code = UA Spec 1.008 1 Grav) [facility] AND [id number] 14:33:00 Test Item Value Reference Range Interpretation Comments UA Ketones (test code = UA Negative mg/dL Ketones) [facility] AND [id number] 14:33:00 Test Item Value Reference Range Interpretation Comments UA pH (test code = UA pH) 5.0 1 5.0-8.0 [facility] AND [id number] 14:33:00 Test Item Value Reference Range Interpretation Comments UA Bili (test code = Negative *NA*(12/15/17 UA Bili) 8:33 AM) [facility] AND [id number] 14:33:00 Test Item Value Reference Range Interpretation Comments UA Protein (test code = UA Protein) 100 mg/dL [facility] AND [id number] 14:33:00 Test Item Value Reference Range Interpretation Comments Micro? (test code = Performed *NA*(12/15/17 Micro?) 8:33 AM) [facility] AND [id number] 14:33:00 Test Item Value Reference Range Interpretation Comments UA Urobilinogen (test code = UA <=1.0 mg/dL 0.1-1.0 Urobilinogen) [facility] AND [id number] 14:33:00 Test Item Value Reference Range Interpretation Comments UA Glucose (test code = UA Glucose) 50 [facility] AND [id number] 14:33:00 Test Item Value Reference Range Interpretation Comments UA Color (test code = UA Color) STRAW [facility] AND [id number] 14:33:00 Test Item Value Reference Range Interpretation Comments UA Nitrite (test code Negative (12/15/17 8:33 = UA Nitrite) AM) [facility] AND [id number] 14:33:00 Test Item Value Reference Range Interpretation Comments UA Blood (test code = Small *ABN*(12/15/17 UA Blood) 8:33 AM) [facility] AND [id number] 14:33:00 Test Item Value Reference Range Interpretation Comments UA Leuk Est (test Negative (12/15/17 8:33 code = UA Leuk Est) AM) [facility] AND [id number] 14:33:00 Test Item Value Reference Range Interpretation Comments UA WBC (test code = 3 See_Comment [Automa emerson message] The UA WBC) system which ge nerated this result transmit emerson reference range : <=5. The reference range was not used to interpr et this result as erinn l/abnormal. [facility] AND [id number] 14:33:00 Test Item Value Reference Range Interpretation Comments UA Sq Epi (test code = UA Sq Occasional /LPF Epi) [facility] AND [id number] 14:33:00 Test Item Value Reference Range Interpretation Comments UA Mucus (test code = UA Mucus) Few /LPF [facility] AND [id number] 14:33:00 Test Item Value Reference Range Interpretation Comments UA RBC (test code = 1 See_Comment [Automa emerson message] The UA RBC) system which ge nerated this result transmit emerson reference range : <=2. The reference range was not used to interpr et this result as erinn l/abnormal. [facility] AND [id number] 14:33:00 Test Item Value Reference Range Interpretation Comments UA Turbidity (test code Slight *ABN*(12/15/17 = UA Turbidity) 8:33 AM) [facility] AND [id number] 14:33:00 Test Item Value Reference Range Interpretation Comments UA Spec Grav (test code = UA Spec 1.008 1 Grav) [facility] AND [id number] 14:33:00 Test Item Value Reference Range Interpretation Comments UA Ketones (test code = UA Negative mg/dL Ketones) [facility] AND [id number] 14:33:00 Test Item Value Reference Range Interpretation Comments UA pH (test code = UA pH) 5.0 1 5.0-8.0 [facility] AND [id number] 14:33:00 Test Item Value Reference Range Interpretation Comments UA Bili (test code = Negative *NA*(12/15/17 UA Bili) 8:33 AM) [facility] AND [id number] 14:33:00 Test Item Value Reference Range Interpretation Comments UA Protein (test code = UA Protein) 100 mg/dL [facility] AND [id number] 14:33:00 Test Item Value Reference Range Interpretation Comments Micro? (test code = Performed *NA*(12/15/17 Micro?) 8:33 AM) [facility] AND [id number] 14:33:00 Test Item Value Reference Range Interpretation Comments UA Urobilinogen (test code = UA <=1.0 mg/dL 0.1-1.0 Urobilinogen) [facility] AND [id number] 14:33:00 Test Item Value Reference Range Interpretation Comments UA Glucose (test code = UA Glucose) 50 [facility] AND [id number] 14:33:00 Test Item Value Reference Range Interpretation Comments UA Color (test code = UA Color) STRAW [facility] AND [id number] 14:33:00 Test Item Value Reference Range Interpretation Comments UA Nitrite (test code Negative (12/15/17 8:33 = UA Nitrite) AM) [facility] AND [id number] 14:33:00 Test Item Value Reference Range Interpretation Comments UA Blood (test code = Small *ABN*(12/15/17 UA Blood) 8:33 AM) [facility] AND [id number] 14:33:00 Test Item Value Reference Range Interpretation Comments UA Leuk Est (test Negative (12/15/17 8:33 code = UA Leuk Est) AM) [facility] AND [id number] 14:33:00 Test Item Value Reference Range Interpretation Comments UA WBC (test code = 3 See_Comment [Automa emerson message] The UA WBC) system which ge nerated this result transmit emerson reference range : <=5. The reference range was not used to interpr et this result as erinn l/abnormal. [facility] AND [id number] 14:33:00 Test Item Value Reference Range Interpretation Comments UA Sq Epi (test code = UA Sq Occasional /LPF Epi) [facility] AND [id number] 14:33:00 Test Item Value Reference Range Interpretation Comments UA Mucus (test code = UA Mucus) Few /LPF [facility] AND [id number] 14:33:00 Test Item Value Reference Range Interpretation Comments UA RBC (test code = 1 See_Comment [Automa emerson message] The UA RBC) system which ge nerated this result transmit emerson reference range : <=2. The reference range was not used to interpr et this result as erinn l/abnormal. [facility] AND [id number] 14:33:00 Test Item Value Reference Range Interpretation Comments UA Turbidity (test code Slight *ABN*(12/15/17 = UA Turbidity) 8:33 AM) [facility] AND [id number] 14:33:00 Test Item Value Reference Range Interpretation Comments UA Spec Grav (test code = UA Spec 1.008 1 Grav) [facility] AND [id number] 14:33:00 Test Item Value Reference Range Interpretation Comments UA Ketones (test code = UA Negative mg/dL Ketones) [facility] AND [id number] 14:33:00 Test Item Value Reference Range Interpretation Comments UA pH (test code = UA pH) 5.0 1 5.0-8.0 [facility] AND [id number] 14:33:00 Test Item Value Reference Range Interpretation Comments UA Bili (test code = Negative *NA*(12/15/17 UA Bili) 8:33 AM) [facility] AND [id number] 14:33:00 Test Item Value Reference Range Interpretation Comments UA Protein (test code = UA Protein) 100 mg/dL [facility] [id number] 12:48:00 Test Item Value Reference Range Interpretation Comments CK MB Index (test 1.3 1 See_Comment [Automate d message] The code = CK MB Index) system w [facility] generated this result transmit emerson reference range : <=2.5. The reference range was not used to interpr et this result as erinn l/abnormal. [facility] [id number] 12:48:00 Test Item Value Reference Range Interpretation Comments proBNP (test code = 4088 See_Comment [Automa emerson message] The proBNP) system which ge nerated this result tra nsmitted reference range : <=125. The reference r yared was not used to int erpret this result as erinn l/abnormal. [facility] [id number] 12:48:00 Test Item Value Reference Range Interpretation Comments Total CK (test code = Total CK) 357 12-191 [facility] [id number] 12:48:00 Test Item Value Reference Range Interpretation Comments CK MB (test code = CK MB) 4.8 0.5-3.6 [facility] [id number] 12:48:00 Test Item Value Reference Range Interpretation Comments Troponin-I (test code no gt See_Comment [Auto mated message] The = Troponin-I) system which g enerated this result transmit emerson reference range : <=0.40. The reference r yared was not used to interpr et this result as erinn l/abnormal. [facility] [employer] [id number] 12:48:00 Test Item Value Reference Range Interpretation Comments A/G Ratio (test code = A/G Ratio) 0.8 1 0.7-1.6 [facility] [employer] [id number] 12:48:00 Test Item Value Reference Range Interpretation Comments Total Protein (test code = Total 7.0 6.4-8.4 Protein) [facility] [employer] [id number] 12:48:00 Test Item Value Reference Range Interpretation Comments Globulin (test code = Globulin) 3.9 2.7-4.2 [facility] [employer] [id number] 12:48:00 Test Item Value Reference Range Interpretation Comments Albumin Lvl (test code = Albumin Lvl) 3.1 3.5-5.0 [facility] [employer] [id number] 12:48:00 Test Item Value Reference Range Interpretation Comments Bili Total (test code = Bili Total) 0.4 0.2-1.3 [facility] [employer] [id number] 12:48:00 Test Item Value Reference Range Interpretation Comments Alk Phos (test code = Alk Phos) 108 39-136 [facility] [employer] [id number] 12:48:00 Test Item Value Reference Range Interpretation Comments ALT (test code = ALT) 15 See_Comment [Auto mated message] The system which ge nerated this result transmit emerson reference range : <=65. The reference range was not used to interpr et this result as erinn l/abnormal. [facility] [employer] [id number] 12:48:00 Test Item Value Reference Range Interpretation Comments AST (test code = AST) 13 See_Comment [Auto mated message] The system which ge nerated this result transmit emerson reference range : <=37. The reference range was not used to interpr et this result as erinn l/abnormal. [facility]ee[facility] [id number] 12:48:00 Test Item Value Reference Range Interpretation Comments B/C Ratio (test code = B/C Ratio) 9 1 6-25 [facility] [id number] 12:48:00 Test Item Value Reference Range Interpretation Comments D-Dimer (test code = D-Dimer) 1.17 [facility]annCARJauntAC [id number] 12:48:00 Test Item Value Reference Range Interpretation Comments CK MB Index (test 1.3 1 See_Comment [Automate d message] The code = CK MB Index) system w [facility] generated this result transmit emerson reference range : <=2.5. The reference range was not used to interpr et this result as erinn l/abnormal. [facility] HospitalCourseloadCARJauntAC [id number] 12:48:00 Test Item Value Reference Range Interpretation Comments proBNP (test code = 4088 See_Comment [Automa emerson message] The proBNP) system which ge nerated this result tra nsmitted reference range : <=125. The reference r yared was not used to int erpret this result as erinn l/abnormal. [facility] [employer] [id number] 12:48:00 Test Item Value Reference Range Interpretation Comments Total CK (test code = Total CK) 357 12-191 [facility]annCAR[facility]untAC [id number] 12:48:00 Test Item Value Reference Range Interpretation Comments CK MB (test code = CK MB) 4.8 0.5-3.6 [facility]annWeatherBugAC [id number] 12:48:00 Test Item Value Reference Range Interpretation Comments Troponin-I (test code no gt See_Comment [Auto mated message] The = Troponin-I) system which g enerated this result transmit emerson reference range : <=0.40. The reference r yared was not used to interpr et this result as erinn l/abnormal. [facility]2018-03-09 12:48:00 Test Item Value Reference Range Interpretation Comments A/G Ratio (test code = A/G Ratio) 0.8 1 0.7-1.6 [id number] 12:48:00 Test Item Value Reference Range Interpretation Comments Total Protein (test code = Total 7.0 6.4-8.4 Protein) [facility]2018-03-09 12:48:00 Test Item Value Reference Range Interpretation Comments Globulin (test code = Globulin) 3.9 2.7-4.2 [facility]2018-03-09 12:48:00 Test Item Value Reference Range Interpretation Comments Albumin Lvl (test code = Albumin Lvl) 3.1 3.5-5.0 [facility]2018-03-09 12:48:00 Test Item Value Reference Range Interpretation Comments Bili Total (test code = Bili Total) 0.4 0.2-1.3 [facility]2018-03-09 12:48:00 Test Item Value Reference Range Interpretation Comments Alk Phos (test code = Alk Phos) 108 39-136 [facility]2018-03-09 12:48:00 Test Item Value Reference Range Interpretation Comments ALT (test code = ALT) 15 See_Comment [Auto mated message] The system which ge nerated this result transmit emerson reference range : <=65. The reference range was not used to interpr et this result as erinn l/abnormal. [facility]2018-03-09 12:48:00 Test Item Value Reference Range Interpretation Comments AST (test code = AST) 13 See_Comment [Auto mated message] The system which ge nerated this result transmit emerson reference range : <=37. The reference range was not used to interpr et this result as erinn l/abnormal. [facility]2018-03-09 12:48:00 Test Item Value Reference Range Interpretation Comments B/C Ratio (test code = B/C Ratio) 9 1 6-25 [id number] 12:48:00 Test Item Value Reference Range Interpretation Comments D-Dimer (test code = D-Dimer) 1.17 [facility] [place]2018-03-09 12:48:00 Test Item Value Reference Range Interpretation Comments CK MB Index (test 1.3 1 See_Comment [Automate d message] The code = CK MB Index) system w [facility] generated this result transmit emerson reference range : <=2.5. The reference range was not used to interpr et this result as erinn l/abnormal. [facility] [employer] [facility]2018-03-09 12:48:00 Test Item Value Reference Range Interpretation Comments proBNP (test code = 4088 See_Comment [Automa emerson message] The proBNP) system which ge nerated this result tra nsmitted reference range : <=125. The reference r yared was not used to int erpret this result as erinn l/abnormal. [facility] [employer] [facility]2018-03-09 12:48:00 Test Item Value Reference Range Interpretation Comments Total CK (test code = Total CK) 357 12-191 [facility] [employer] [place]2018-03-09 12:48:00 Test Item Value Reference Range Interpretation Comments CK MB (test code = CK MB) 4.8 0.5-3.6 [facility] [employer] [place]2018-03-09 12:48:00 Test Item Value Reference Range Interpretation Comments Troponin-I (test code no gt See_Comment [Auto mated message] The = Troponin-I) system which g enerated this result transmit emerson reference range : <=0.40. The reference r yared was not used to interpr et this result as erinn l/abnormal. [facility] [employer] [id number] 12:48:00 Test Item Value Reference Range Interpretation Comments A/G Ratio (test code = A/G Ratio) 0.8 1 0.7-1.6 [facility] [employer] [id number] 12:48:00 Test Item Value Reference Range Interpretation Comments Total Protein (test code = Total 7.0 6.4-8.4 Protein) [facility] [employer] [id number] 12:48:00 Test Item Value Reference Range Interpretation Comments Globulin (test code = Globulin) 3.9 2.7-4.2 [facility] [employer] [id number] 12:48:00 Test Item Value Reference Range Interpretation Comments Albumin Lvl (test code = Albumin Lvl) 3.1 3.5-5.0 [facility]2018-03-09 12:48:00 Test Item Value Reference Range Interpretation Comments Bili Total (test code = Bili Total) 0.4 0.2-1.3 [facility]2018-03-09 12:48:00 Test Item Value Reference Range Interpretation Comments Alk Phos (test code = Alk Phos) 108 39-136 [facility]2018-03-09 12:48:00 Test Item Value Reference Range Interpretation Comments ALT (test code = ALT) 15 See_Comment [Auto mated message] The system which ge nerated this result transmit emerson reference range : <=65. The reference range was not used to interpr et this result as erinn l/abnormal. [facility]2018-03-09 12:48:00 Test Item Value Reference Range Interpretation Comments AST (test code = AST) 13 See_Comment [Auto mated message] The system which ge nerated this result transmit emerson reference range : <=37. The reference range was not used to interpr et this result as erinn l/abnormal. [facility]2018-03-09 12:48:00 Test Item Value Reference Range Interpretation Comments B/C Ratio (test code = B/C Ratio) 9 1 6-25 [facility] [id number] 12:48:00 Test Item Value Reference Range Interpretation Comments D-Dimer (test code = D-Dimer) 1.17 [facility] [id number] 12:48:00 Test Item Value Reference Range Interpretation Comments CK MB Index (test 1.3 1 See_Comment [Automate d message] The code = CK MB Index) system w [facility] generated this result transmit emerson reference range : <=2.5. The reference range was not used to interpr et this result as erinn l/abnormal. [facility] [id number] 12:48:00 Test Item Value Reference Range Interpretation Comments proBNP (test code = 4088 See_Comment [Automa emerson message] The proBNP) system which ge nerated this result tra nsmitted reference range : <=125. The reference r yared was not used to int erpret this result as erinn l/abnormal. [facility] - Financial ReconciliationAC [id number] 12:48:00 Test Item Value Reference Range Interpretation Comments Total CK (test code = Total CK) 357 12-191 [facility] [id number] 12:48:00 Test Item Value Reference Range Interpretation Comments CK MB (test code = CK MB) 4.8 0.5-3.6 [facility] [id number] 12:48:00 Test Item Value Reference Range Interpretation Comments Troponin-I (test code no gt See_Comment [Auto mated message] The = Troponin-I) system which g enerated this result transmit emerson reference range : <=0.40. The reference r yared was not used to interpr et this result as erinn l/abnormal. [facility] [employer] [id number] 12:48:00 Test Item Value Reference Range Interpretation Comments A/G Ratio (test code = A/G Ratio) 0.8 1 0.7-1.6 [facility] [employer]2018-03-09 12:48:00 Test Item Value Reference Range Interpretation Comments Total Protein (test code = Total 7.0 6.4-8.4 Protein) [facility] [employer] [id number] 12:48:00 Test Item Value Reference Range Interpretation Comments Globulin (test code = Globulin) 3.9 2.7-4.2 [facility] [employer] [id number] 12:48:00 Test Item Value Reference Range Interpretation Comments Albumin Lvl (test code = Albumin Lvl) 3.1 3.5-5.0 [facility] [employer] [id number] 12:48:00 Test Item Value Reference Range Interpretation Comments Bili Total (test code = Bili Total) 0.4 0.2-1.3 [facility] [employer] [id number] 12:48:00 Test Item Value Reference Range Interpretation Comments Alk Phos (test code = Alk Phos) 108 39-136 [facility] [employer] [id number] 12:48:00 Test Item Value Reference Range Interpretation Comments ALT (test code = ALT) 15 See_Comment [Auto mated message] The system which ge nerated this result transmit emerson reference range : <=65. The reference range was not used to interpr et this result as erinn l/abnormal. [facility] [employer]2018-03-09 12:48:00 Test Item Value Reference Range Interpretation Comments AST (test code = AST) 13 See_Comment [Auto mated message] The system which ge nerated this result transmit emerson reference range : <=37. The reference range was not used to interpr et this result as erinn l/abnormal. [facility] [id number] 12:48:00 Test Item Value Reference Range Interpretation Comments B/C Ratio (test code = B/C Ratio) 9 1 6-25 [facility] [id number] 12:48:00 Test Item Value Reference Range Interpretation Comments D-Dimer (test code = D-Dimer) 1.17 [facility]
[2022-11-24 23:39] LABS: Urine Blood 2+ (Negative); Urine Glucose Trace (Negative); Urine Protein 3+ (Negative)
[2022-11-24 23:51] LABS: Barbiturates NEGATIVE (NEGATIVE); Benzodiazepines POSITIVE (NEGATIVE); Cocaine NEGATIVE (NEGATIVE); METHAMPHETAM NEGATIVE (NEGATIVE); Methadone NEGATIVE (NEGATIVE); Opiates POSITIVE (NEGATIVE); Phencyclidine NEGATIVE (NEGATIVE); THC Cannibis NEGATIVE (NEGATIVE)
[2022-11-25 00:36] LABS: SARS-COV-2 RT PCR NEGATIVE (NEGATIVE)
[2022-11-25] MEDS ORDERED: NALOXONE 0.4 MG/ML VIAL ONE (00:52)
--- NOTE | 2022-11-25 01:37 | ER ---
Nurse's Notes [facility] Name: Alex Cagle Age: 62 yrs Sex: Male : 1960 Arrival Date: 11/24/2022 Time: 22:25 Bed 13 Private MD: Diagnosis: Altered mental status, unspecified;Hypoxia (85% room air) Presentation: 11/24 22:30 Chief complaint: EMS states: called out for AMS. reports pt has been sleeping more as6 often and felt like he has a fever at home. last known normal was at noon today. on arrival to ER be has bilateral pinpoint pupils and is AAOX1. Coronavirus screen: At this time, the client does not indicate any symptoms associated with coronavirus-19. Ebola Screen: No symptoms or risks identified at this time. Initial Sepsis Screen: Does the patient meet any 2 criteria? Altered Mental Status. Does the patient have a suspected source of infection? No. Patient's initial sepsis screen is negative. Risk Assessment: Do you want to hurt yourself or someone else? Unable to obtain. Onset of symptoms was November 24, 2022. 22:30 Method Of Arrival: EMS: [facility] as6 22:30 Acuity: DEJAN 2 as6 Historical: - Allergies: 22:57 NKA; as6 - Home Meds: 23:47 amlodipine oral [Active]; Hydroxyzine Oral [Active]; Doxycycline Oral [Active]; mb9 Lisinopril Oral [Active]; Oxybutynin Chloride Oral [Active]; Diazepam Oral [Active]; Zolpidem Tartrate Oral [Active]; - PMHx: 22:57 CHF; Diabetes - NIDDM; ESRD; Hypertension; insomnia; as6 - PSHx: 22:57 bilateral knee repairs; R shoulder; as6 - Immunization history:: Adult Immunizations unknown. - Social history:: Smoking status: unknown. Screenin:57 [facility] ED Fall Risk Assessment (Adult) Confusion or Disorientation Yes (5 pts) as6 Score/Fall Risk Level 3 or more points = High Risk. Abuse screen: Denies threats or abuse. Denies injuries from another. Nutritional screening: No deficits noted. Tuberculosis screening: No symptoms or risk factors identified. Assessment: 22:30 General: Appears in no apparent distress. mb9 22:30 Reassessment: Fistula to left arm. Bruit and thrill noted. Pain: Unable to use pain mb9 scale. Patient is disoriented. Neuro: Level of Consciousness is awake, Oriented to place, Stone Layout Marker are equal bilaterally Moves all extremities. Speech is normal, Facial symmetry appears normal, Pupils are non-reactive, pinpoint. Cardiovascular: Heart tones S1 S2 present Patient's skin is warm and dry. Rhythm is regular. Respiratory: Airway is patent Respiratory effort is even, unlabored, Respiratory pattern is regular, symmetrical, Breath sounds are clear bilaterally. GI: Abdomen is round non-distended, Bowel sounds present X 4 quads. Abd is soft and non tender X 4 quads. EENT: No signs and/or symptoms were reported regarding the EENT system. Derm: Skin is pink, warm \T\ dry. Musculoskeletal: Range of motion: limited in bilateral lower extremities. 22:37 Reassessment: pts oxygen saturation 80% on 6 L/min nasal cannula. Pt placed on mb9 nonrebreather at 15 L/min, oxygen saturation at 100%. 22:55 Reassessment: pt taken to CT via stretcher. mb9 23:39 Neuro: Level of Consciousness is awake, Oriented to place. Cardiovascular: Rhythm is mb9 regular. Respiratory: Airway is patent Respiratory effort is even, unlabored, Respiratory pattern is regular, symmetrical. : Urine is cloudy. Derm: Skin is pink, warm \T\ dry. 23:55 Reassessment: report given to KATIANA Baig. mb9 11/25 00:37 General: at bedside. pt responds to verbal stimuli . as6 Vital Signs: 11/24 22:20 BP 143 / 73; Pulse 76; Resp 11; Weight 102.06 kg; Height 5 ft. 11 in. (180.34 cm); mb9 22:30 Temp 98.4(O); Pulse Ox 76% on R/A; as6 22:38 BP 135 / 75; Pulse 85; Resp 19; Pulse Ox 100% on 15% Non-rebreather mask; mb9 22:45 BP 134 / 70; Pulse 88; Resp 20; Pulse Ox 86% on R/A; mb9 22:46 Pulse Ox 95% on 2 lpm NC; mb9 23:10 BP 143 / 67; Pulse 88; Resp 18; Pulse Ox 96% on 2 lpm NC; mb9 23:55 BP 131 / 64; Pulse 87; Resp 15; Pulse Ox 99% on 2 lpm NC; mb9 11/25 00:36 BP 146 / 77; Pulse 86; Resp 16 S; Pulse Ox 94% on 2 lpm NC; as6 01:30 BP 147 / 74; Pulse 88; Resp 14 S; Pulse Ox 94% on 2 lpm NC; as6 02:59 BP 141 / 72; Pulse 90; Resp 15 S; Pulse Ox 95% on 2 lpm NC; as6 11/24 22:20 Body Mass Index 31.38 (102.06 kg, 180.34 cm) mb9 ED Course: 11/24 22:25 Patient arrived in ED. rv1 22:26 Mervat Vernon, KATIANA is Primary Nurse. mb9 22:28 Clayton Begum MD is Attending Physician. kdr 22:35 Inserted saline lock: 18 gauge in right forearm, using aseptic technique. Blood mb9 collected. 22:50 EKG done, by ED staff, reviewed by Clayton Begum MD. mb9 22:57 Triage completed. as6 22:57 Arm band placed on. as6 22:57 Placed in gown. Bed in low position. Call light in reach. Side rails up X2. Client as6 placed on continuous cardiac and pulse oximetry monitoring. NIBP monitoring applied. 23:05 Chest Single View In Process Unspecified. EDMS 23:19 Notified ED physician of a critical lab result(s). creatinine of 10.7 Dr Shy booth notified. 23:22 Head Brain Wo Cont In Process Unspecified. EDMS 23:30 Straight cath inserted, using sterile technique, 16 Fr. Specimen obtained. Returned mb9 kieran urine. Patient tolerated well. 23:40 No provider procedures requiring assistance completed. mb9 23:54 COVID-19/FLU A+B Sent. mb9 11/25 01:29 Adam Flores MD is Hospitalizing Provider. kdr 03:00 Patient admitted, IV remains in place. as6 Administered Medications: 00:51 Drug: NARcan (naloxone) 0.2 mg Route: IVP; Site: right forearm; as6 03:08 Follow up: Response: No adverse reaction as6 Medication: 11/24 23:40 VIS not applicable for this client. mb9 Outcome: 11/25 01:36 Decision to Hospitalize by Provider. kdr 03:00 Admitted to Tele accompanied by tech, via stretcher, with chart. as6 03:00 Condition: stable 03:00 Instructed on the need for admit. 03:08 Patient left the ED. as6 Signatures: Dispatcher [employer] EDMS Clayton Begum MD MD kdr Ballard, Brenda RN RN bb Jovanni Alford RN RN as6 Mervat Vernon RN RN mb9 Ryann Morrison rv1 Corrections: (The following items were deleted from the chart) 11/24 23:10 23:09 BP 135 / 75; Pulse 85bpm; Resp 19bpm; Pulse Ox 100% 02 15% Non-rebreather mask; mb9 mb9
--- NOTE | 2022-11-25 01:37 | EDPHYS ---
Physician Documentation [facility] Name: Alex Cagle Age: 62 yrs Sex: Male : 1960 Arrival Date: 11/24/2022 Time: 22:25 Bed 13 Private MD: ED Physician Clayton Begum HPI: 11/25 01:37 This 62 yrs old Male presents to ER via EMS with complaints of Altered mental status. kdr 01:37 Patient's reports that she came home earlier today and found the patient kdr unresponsive. She also felt that he was having difficulty breathing. When she called EMS she noted that they remarked about the patient's pinpoint pupils. Patient was not given any Narcan by EMS. Patient presented in mild to moderate distress. He did not appear to be in respiratory distress but generally speaking was poorly responsive and obtunded. His oxygen saturations initially were in the low 80s to 70s. This quickly improved with 100% oxygen by facemask. Patient remained responsive to physical stimuli and occasionally to verbal stimuli. Vital signs otherwise were stable he was afebrile. The did not relate any recent illnesses. She stated that he had completed dialysis successfully yesterday without incident.. Onset: The symptoms/episode began/occurred this morning. Severity of symptoms: At their worst the symptoms were mild moderate just prior to arrival, in the emergency department the symptoms are unchanged. The patient has experienced similar episodes in the past, several times. The patient has not recently seen a physician. Historical: - Allergies: 11/24 22:57 NKA; as6 - Home Meds: 23:47 amlodipine oral [Active]; Hydroxyzine Oral [Active]; Doxycycline Oral [Active]; mb9 Lisinopril Oral [Active]; Oxybutynin Chloride Oral [Active]; Diazepam Oral [Active]; Zolpidem Tartrate Oral [Active]; - PMHx: 22:57 CHF; Diabetes - NIDDM; ESRD; Hypertension; insomnia; as6 - PSHx: 22:57 bilateral knee repairs; R shoulder; as6 - Immunization history:: Adult Immunizations unknown. - Social history:: Smoking status: unknown. ROS: 11/25 01:37 Constitutional: Unobtainable secondary to the patient's altered mental status. The kdr did not relate any current or recent prodrome that would be suggestive of his current state Eyes: Negative for injury, pain, redness, and discharge. Unable to obtain ROS due to altered mental status, obtunded state. Exam: 01:37 Constitutional: This is a well developed, well nourished patient who is awake, alert, kdr and in no acute distress. Head/Face: Normocephalic, atraumatic. Eyes: Pupils equal round and reactive to light, extra-ocular motions intact. Lids and lashes normal. Conjunctiva and sclera are non-icteric and not injected. Cornea within normal limits. Periorbital areas with no swelling, redness, or edema. Neck: Trachea midline, no thyromegaly or masses palpated, and no cervical lymphadenopathy. Supple, full range of motion without nuchal rigidity, or vertebral point tenderness. No Meningismus. Chest/axilla: Normal chest wall appearance and motion. Nontender with no deformity. No lesions are appreciated. Cardiovascular: Regular rate and rhythm with a normal S1 and S2. No gallops, murmurs, or rubs. Normal PMI, no JVD. No pulse deficits. Back: No spinal tenderness. No costovertebral tenderness. Full range of motion. Skin: Warm, dry with normal turgor. Normal color with no rashes, no lesions, and no evidence of cellulitis. MS/ Extremity: Pulses equal, no cyanosis. Neurovascular intact. Full, normal range of motion. Neuro: Awake and alert, GCS 15, oriented to person, place, time, and situation. Cranial nerves II-XII grossly intact. Motor strength 5/5 in all extremities. Sensory grossly intact. Cerebellar exam normal. Normal gait. Psych: Awake, alert, with orientation to person, place and time. Behavior, mood, and affect are within normal limits. Vital Signs: 11/24 22:20 BP 143 / 73; Pulse 76; Resp 11; Weight 102.06 kg; Height 5 ft. 11 in. (180.34 cm); mb9 22:30 Temp 98.4(O); Pulse Ox 76% on R/A; as6 22:38 BP 135 / 75; Pulse 85; Resp 19; Pulse Ox 100% on 15% Non-rebreather mask; mb9 22:45 BP 134 / 70; Pulse 88; Resp 20; Pulse Ox 86% on R/A; mb9 22:46 Pulse Ox 95% on 2 lpm NC; mb9 23:10 BP 143 / 67; Pulse 88; Resp 18; Pulse Ox 96% on 2 lpm NC; mb9 23:55 BP 131 / 64; Pulse 87; Resp 15; Pulse Ox 99% on 2 lpm NC; 9 11/25 00:36 BP 146 / 77; Pulse 86; Resp 16 S; Pulse Ox 94% on 2 lpm NC; as6 01:30 BP 147 / 74; Pulse 88; Resp 14 S; Pulse Ox 94% on 2 lpm NC; as6 02:59 BP 141 / 72; Pulse 90; Resp 15 S; Pulse Ox 95% on 2 lpm NC; as6 11/24 22:20 Body Mass Index 31.38 (102.06 kg, 180.34 cm) 9 MDM: 01:36 Patient medically screened. kdr 01:37 Data reviewed: vital signs, nurses notes, lab test result(s), radiologic studies. kdr Consideration of Admission/Observation Patient was admitted/placed on observation. Escalation of care including admission/observation considered. Management of patient was discussed with the following: Hospitalist: Sandeep. I considered the following discharge prescriptions or medication management in the emergency department Medications were administered in the Emergency Department. See DEC. 11/24 22:28 Order name: Acetaminophen; Complete Time: 23:29 kdr 11/24 22:28 Order name: Basic Metabolic Panel; Complete Time: 23:29 kdr 11/24 22:28 Order name: CBC with Diff; Complete Time: 23:29 kdr 11/24 22:28 Order name: ETOH Level; Complete Time: 23:29 kdr 11/24 22:28 Order name: Hepatic Function; Complete Time: 23:29 kdr 11/24 22:28 Order name: PT-INR; Complete Time: 23:29 kdr 11/24 22:28 Order name: Ptt, Activated; Complete Time: 23:29 kdr 11/24 22:28 Order name: Salicylate; Complete Time: 23:29 kdr 11/24 22:28 Order name: Urine Drug Screen; Complete Time: 00:37 kdr 11/24 22:28 Order name: CXR XRAY kdr 11/24 22:29 Order name: CT Head Brain wo Cont kdr 11/24 22:32 Order name: Chest Single View EDMS 11/24 23:39 Order name: Urine Dipstick-Ancillary; Complete Time: 23:45 EDMS 11/24 23:45 Order name: COVID-19/FLU A+B; Complete Time: 00:37 la1 11/24 22:28 Order name: EKG; Complete Time: 22:30 kdr 11/24 22:28 Order name: EKG - Nurse/Tech; Complete Time: 23:11 kdr 11/24 22:28 Order name: IV Saline Lock; Complete Time: 22:46 kdr 11/24 22:28 Order name: Labs collected and sent; Complete Time: 22:47 kdr 11/24 22:28 Order name: Suicide Screening ([place]); Complete Time: 01:56 kdr 11/24 22:28 Order name: Urine Dipstick-Ancillary (obtain specimen); Complete Time: 01:56 kdr 11/24 22:30 Order name: Cath; Complete Time: 23:39 bb 11/24 22:32 Order name: EKG Electrocardiogram; Complete Time: 23:55 EDMS 11/24 22:32 Order name: Head Brain Wo Cont EDMS Administered Medications: 00:51 Drug: NARcan (naloxone) 0.2 mg Route: IVP; Site: right forearm; as6 03:08 Follow up: Response: No adverse reaction as6 Disposition Summary: 11/25/22 01:36 Hospitalization Ordered Hospitalization Status: Inpatient Admission kdr Provider: Adam Flores kdr Location: Telemetry/MedSurg (Inpatient) kdr Condition: Fair kdr Problem: an acute exacerbation kdr Symptoms: have improved kdr Bed/Room Type: Standard kdr Room Assignment: 407(11/25/22 02:48) cg Diagnosis - Altered mental status, unspecified kdr - Hypoxia (85% room air) kdr Forms: - Medication Reconciliation Form kdr - SBAR form kdr Signatures: Dispatcher [employer] EDMS Clayton Begum MD MD kdr Lisa Azar, RN RN bb Vasile Hopkins, CRISTIN-C CHAIN SALES REPRESENTATIVE-Cla1 Tara Pate RN RN cg Jovanni Alford RN RN as6 Mervat Vernon RN RN mb9 Corrections: (The following items were deleted from the chart) 02:48 01:36 kdr cg
--- NOTE | 2022-11-25 02:14 | P.HP ---
Certification for Inpatient Patient admitted to: Inpatient With expected LOS: >2 Midnights Patient will require the following post-hospital care: None Practitioner: I am a practitioner with admitting privileges, knowledge of patient current condition, hospital course, and medical plan of care. Services: Services provided to patient in accordance with Admission requirements found in Title 42 Section 412.3 of the Code of Federal Regulations Patient History Date of Service: 11/25/22 History of Present Illness: 62-year-old male with history of ESRD on HD, CHF, hypertension presents to the emergency department for altered mental status. reported to ED staff that when she came home his eyes appear to be rolling back in his head and he was altered. He was evaluated in the emergency department his labs were significant for mild hyponatremia, mild hyperkalemia BUN 67 creatinine 10.7 reports around 7.9 urine 3+ protein 2+ blood no nitrites or leukocytes UDS positive for benzos and opioids. He was drowsy/altered he was given a small dose of Narcan with mild to moderate improvement in his mental status. ED provider wishes to admit patient for further evaluation and management of AMS, hyperkalemia. Allergies No Known Allergies Allergy (Verified 01/01/21 21:09) Home Medications: Codeine/APAP [Tylenol #3*] 300 mg PO TID PRN 04/08/22 Folic Acid/Vit B Complex and C [Fauzia-Conor Tablet] 1 tab PO DAILY 04/08/22 Sucroferric Oxyhydroxide [Velphoro] 500 mg PO TIDWMHS 04/08/22 Amlodipine Besylate/Benazepril [Amlodipine-Benazepril 10-20 mg] 1 each PO TID #30 cap 11/02/22 Bumetanide 1 tab PO DAILY 11/02/22 Hydralazine [Apresoline*] 25 mg PO TID #90 tab 11/02/22 Sevelamer Carbonate [Renvela*] 800 mg PO TIDWM #90 tab 11/02/22 Warfarin Sodium [Coumadin*] 7.5 mg PO DAILY 5 PM tab 11/02/22 Zolpidem Tartrate [Ambien*] 1 tab PO BEDTIME PRN 11/02/22 carvediloL [Coreg*] 3.125 mg PO BID 6AM 6PM #30 tab 11/02/22 - Past Medical/Surgical History Diabetic: Yes -: End-stage renal disease on hemodialysis -: Hypertension -: HTN -: 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 - Family History Father -: Heart disease - Social History Alcohol use: No CD- Drugs: No Caffeine use: No Place of Residence: Home Review of Systems 10-point ROS is otherwise unremarkable General: Other (AMS) Respiratory: Shortness of Breath Physical Examination - Physical Exam General: Alert, In no apparent distress, Oriented x2 HEENT: Atraumatic, PERRLA, Mucous membr. moist/pink, EOMI, Sclerae nonicteric Neck: Supple, 2+ carotid pulse no bruit, No LAD, Without JVD or thyroid abnormality Respiratory: Diminished Cardiovascular: Regular rate/rhythm, Normal S1 S2 Capillary refill: <2 Seconds Gastrointestinal: Normal bowel sounds, No tenderness Musculoskeletal: No tenderness Integumentary: No rashes Neurological: Normal speech, Normal strength at 5/5 x4 extr, Normal tone, Normal affect - Studies Laboratory Data (last 24 hrs) 11/24/22 22:43: PT 10.8, INR 0.98, APTT 31.9 11/24/22 22:43: WBC 7.90, Hgb 10.1 L, Hct 31.2 L, Plt Count 217 11/24/22 22:43: Sodium 128 L, Potassium 5.4 H, BUN 67 H, Creatinine 10.70 H*, Glucose 88, Total Bilirubin 0.3, AST 18, ALT 14 L, Alkaline Phosphatase 143 H Assessment and Plan - Plan Assessment: Metabolic encephalopathy secondary to uremia, possibly polypharmacy ESRD on HD with hyperkalemia Chronic IJ clot-noncompliant with warfarin Chronic diastolic congestive heart failure hypertension Plan: Metabolic encephalopathy secondary to uremia, possibly polypharmacy Nephrology consulted for dialysis/management of uremia. Patient positive for opioids, benzos reportedly takes Tylenol 3 with codeine at home as well as Valium. Given small dose of Narcan with mild improvement in symptoms. CT head negative. ESRD on HD with hyperkalemia Potassium 5.4, nephrology consulted for dialysis. Reportedly went to dialysis yesterday. Chronic IJ clot-noncompliant with warfarin Warfarin continued, monitor INR daily. Patient slightly confused but reports he has not been taking at home. INR subtherapeutic. Chronic diastolic congestive heart failure Volume management with dialysis. hypertension Continue home medications. DVT PPX: Heparin Code status: Full Discharge Plan: Home Plan to discharge in: 48 Hours - Advance Directives Does patient have a Living Will: No Does patient have a Durable POA for Healthcare: Yes - Code Status/Comfort Care Code Status Assessed: Yes (Full code) Critical Care: No Time Spent Managing Pts Care (In Minutes): 70
[2022-11-25] MEDS ORDERED: ONDANSETRON 4 MG/2 ML VIAL IV PRN (03:31)
[2022-11-25] MEDS: INSULIN -REGULAR HUMAN 50 UNIT/0.5 ML ML SQ SCH ×4 (07:30→20:47)
[2022-11-25] MEDS ORDERED: VANCOMYCIN 1 GM in NA CHLORIDE 0.9% 250 ML IVPB ONE (09:37)
[2022-11-25] MEDS: THIAMINE 200 MG/2 ML INJ IVP SCH ×2 (10:38→20:47)
[2022-11-25] MEDS: ENOXAPARIN 30 MG/0.3 ML SQ SCH (10:38)
[2022-11-25] MEDS: CEFTRIAXONE 1,000 MG in NA CHLORIDE 0.9% 50 ML IVPB SCH (10:39)
--- NOTE | 2022-11-25 12:39 | RAD REPORT ---
EXAM DESCRIPTION: RAD - Chest Single View - 11/24/2022 11:03 pm CLINICAL HISTORY: Altered mental status. COMPARISON: Chest radiograph from April 08, 2022. TECHNIQUE: Single view AP chest radiograph(s). FINDINGS: Mild perihilar interstitial prominence. No infiltrate identified. No pleural effusion. No pneumothorax. Mild cardiomegaly. No significant osseous abnormality. IMPRESSION: Mild perihilar interstitial prominence. No infiltrate identified. Mild cardiomegaly. Electronically signed by: Rose Marie Randle MD 11/24/2022 11:26 PM MECHANICAL PRESS OPERATOR Due to temporary technical issues with the PACS/Fluency reporting system, reports are being signed by the in house radiologists without review as a courtesy to insure prompt reporting. The interpreting radiologist is fully responsible for the content of the report.
--- NOTE | 2022-11-25 13:15 | P.PN ---
Subjective Date of Service: 11/25/22 Physical Examination - Vital Signs Temperature: 98.3 F Blood Pressure: 155/69 Pulse: 89 Respirations: 19 Pulse Ox (%): 91 - Studies Laboratory Data (last 24 hrs) 11/24/22 22:43: PT 10.8, INR 0.98, APTT 31.9 11/24/22 22:43: WBC 7.90, Hgb 10.1 L, Hct 31.2 L, Plt Count 217 11/24/22 22:43: Sodium 128 L, Potassium 5.4 H, BUN 67 H, Creatinine 10.70 H*, Glucose 88, Total Bilirubin 0.3, AST 18, ALT 14 L, Alkaline Phosphatase 143 H
--- NOTE | 2022-11-25 13:49 | RAD REPORT ---
EXAM DESCRIPTION: CT - Head Brain Wo Cont - 11/25/2022 6:49 am CLINICAL HISTORY: Altered mental status. TECHNIQUE: Noncontrast CT through the head was performed. Axial, coronal, and sagittal reconstructio ns were created and sent to PACS. This exam was performed according to our departmental dose-optimiza tion program which includes use of Automated Exposure Control, adjustment of the mA and/or kV accordi ng to patient size and/or use of iterative reconstruction technique. COMPARISON: None. FINDINGS: There is diffuse age-appropriate atrophy throughout the brain parenchyma. Mild periventric ular white matter changes are present, and there is mild ex vacuo dilatation of the ventricular syste m. There is no intra-axial or extra-axial bleed. There is no mass or mass effect. Chronic left basal ganglia lacunar infarcts. The visualized paranasal sinuses and mastoid air cells are patent. No acute fracture is identified. IMPRESSION: No acute intracranial abnormality identified. Electronically signed by: Rose Marie Randle MD 11/24/2022 11:46 PM PAPER BALING MACHINE OPERATOR Due to temporary technical issues with the PACS/Fluency reporting system, reports are being signed by the in house radiologists without review as a courtesy to insure prompt reporting. The interpreting radiologist is fully responsible for the content of the report.
--- NOTE | 2022-11-25 14:04 | P.CNS ---
Date of Consult: 11/25/22 Reason for Consult: esrd Requesting Physician: Adam Flores Chief Complaint: AMS History of Present Illness: 62M w/ PMHx of ESRD on HD MWF, Htn, CHF, anemia, & renal osteodystrophy, who p/w AMS. Utox + for BZN & opiate. Received Narcan w/ improvement in his mental status. Has mild hyperkalemia. Allergies No Known Allergies Allergy (Verified 01/01/21 21:09) Home Medications: Codeine/APAP [Tylenol #3*] 300 mg PO TID PRN 04/08/22 Folic Acid/Vit B Complex and C [Fauzia-Conor Tablet] 1 tab PO DAILY 04/08/22 Sucroferric Oxyhydroxide [Velphoro] 500 mg PO TIDWMHS 04/08/22 Amlodipine Besylate/Benazepril [Amlodipine-Benazepril 10-20 mg] 1 each PO TID #30 cap 11/02/22 Bumetanide 1 tab PO DAILY 11/02/22 Hydralazine [Apresoline*] 25 mg PO TID #90 tab 11/02/22 Sevelamer Carbonate [Renvela*] 800 mg PO TIDWM #90 tab 11/02/22 Warfarin Sodium [Coumadin*] 7.5 mg PO DAILY 5 PM tab 11/02/22 Zolpidem Tartrate [Ambien*] 1 tab PO BEDTIME PRN 11/02/22 carvediloL [Coreg*] 3.125 mg PO BID 6AM 6PM #30 tab 11/02/22 - Past Medical/Surgical History Diabetic: Yes -: End-stage renal disease on hemodialysis -: Hypertension -: HTN -: 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 - Family History Father Medical History: Heart disease - Social History Smoking Status: Unknown if ever smoked Alcohol use: No CD- Drugs: No Caffeine use: No Place of Residence: Home Review of Systems is unable to be obtained (AMS) Physical Examination Temp Pulse Resp BP Pulse Ox 98.3 F 89 19 155/69 H 91 11/25/22 12:00 11/25/22 12:00 11/25/22 12:00 11/25/22 12:00 11/25/22 12:00 General: Other (Chronically ill-appearing) HEENT: Atraumatic, Normocephalic Neck: Supple, JVD not distended Respiratory: Other (symmetric chest expansion) Cardiovascular: No rubs, No murmurs Gastrointestinal: Soft and benign Musculoskeletal: No clubbing Integumentary: No warmth Neurological: Normal tone Urinary: Other (no bladder distention) External genitalia: Deferred Rectal: Deferred Laboratory Data (last 24 hrs) 11/24/22 22:43: PT 10.8, INR 0.98, APTT 31.9 11/24/22 22:43: WBC 7.90, Hgb 10.1 L, Hct 31.2 L, Plt Count 217 11/24/22 22:43: Sodium 128 L, Potassium 5.4 H, BUN 67 H, Creatinine 10.70 H*, Glucose 88, Total Bilirubin 0.3, AST 18, ALT 14 L, Alkaline Phosphatase 143 H Conclusions/Impression: # ESRD on HD HD for tomorrow, then MWF # HyperK HD as above # AMS Utox + for BZN & opiate. Received Narcan on adm w/ improvement in his mental status Supportive care HD as above # Htn BP at goal, monitor # Anemia H/H at goal, monitor # Renal osteodystrophy Monitor Ca & Phos
--- NOTE | 2022-11-25 16:01 | EKG ---
Test Date: 2022-11-24 Test Time: 22:55:30 Lay Out Maker: MB MEASUREMENT RESULTS: Intervals: Rate: 89 WA: 178 QRSD: 108 QT: 392 QTc: 476 [place]: P: 58 WA: 178 QRS: 87 T: 1 INTERPRETIVE STATEMENTS: Normal sinus rhythm ST & T wave abnormality, consider inferior ischemia Prolonged QT Abnormal ECG Compared to ECG 10/29/2022 12:56:22 ST (T wave) deviation now present Possible ischemia now present Prolonged QT interval now present Electronically Signed On 11-25-22 16:00:00 A OPERATOR by Robby Cobb
[2022-11-25] MEDS: WARFARIN SODIUM 7.5 MG TAB PO SCH (16:58)
[2022-11-25 17:19] LABS: Blood Gas Oxyhemoglobin 86.2 % (94-97); Blood O2 Saturation 89.4 % (92-98.5)
[2022-11-26 01:45] LABS: Arterial Blood Carboxyhemoglob 1.4 % (0-1.5); Blood Gas Oxyhemoglobin 93.6 % (94-97); Blood O2 Saturation 96.6 % (92-98.5)
[2022-11-26 01:53] LABS: Absolute Lymphocytes (CBC) 0.4 K/uL (0.7-4.9); Hematocrit 32.1 % (39.6-49.0); Lymphocytes % 3.8 % (15.3-44.8); MCV 89.5 fL (80-100); RBC Red Blood Cell Count 3.59 M/uL (4.33-5.43)
[2022-11-26] MEDS ORDERED: CALCIUM GLUC 10% INJ 9.3 MEQ in NA CHLORIDE 0.9% 100 ML IV ONE ×2 (02:06→02:25)
[2022-11-26] MEDS ORDERED: ALBUTEROL 2.5 MG/3 ML NEB SOL NEB ONE ×2 (02:07→02:14)
[2022-11-26] MEDS ORDERED: FUROSEMIDE 40 MG/4 ML VIAL IV ONE (02:08)
[2022-11-26] MEDS ORDERED: RSI MEDICATION KIT IV ONE (02:08)
[2022-11-26 02:11] LABS: Potassium 6.2 mmol/L (3.5-5.1)
[2022-11-26] MEDS ORDERED: D50W 25 GM/50 ML SYRINGE IV ONE (02:14)
[2022-11-26] MEDS ORDERED: D50W 25 GM/50 ML SYRINGE IV PRN (02:14)
[2022-11-26] MEDS ORDERED: INSULIN -REGULAR HUMAN 50 UNIT/0.5 ML ML IV ONE (02:14)
[2022-11-26] MEDS ORDERED: GLUCAGON 1 MG/VIAL IM PRN (02:14)
[2022-11-26] MEDS ORDERED: CALCIUM GLUCONATE 1 GM IVPB 1 GM/50 ML BAG IV ONE ×2 (02:27→02:30)
[2022-11-26] MEDS ORDERED: D10W 125 ML IV PRN (02:27)
[2022-11-26] MEDS ORDERED: D10W 250 ML IV ONE ×2 (02:30→02:31)
--- NOTE | 2022-11-26 03:09 | P.PN ---
Date of Service: 11/26/22 I was called by nursing staff on the telemetry floor and notified the patient was becoming increasingly altered despite BiPAP and was not following commands. When I went to assess patient it was clear that there has been deterioration in his mental status. Repeat ABG was performed and patient was transferred to the ICU, ABG revealed worsening hypercapnic respiratory failure, pH decreased from 7.18 down to 7.10 and patient did not appear to be able to protect his airway given his altered mental status. Case was discussed with pulmonology who recommended intubation, stat labs were obtained which revealed worsening of his hyperkalemia with potassium up to 6.2, BUN up to 98. Case was discussed with nephrology, patient was treated with calcium gluconate, albuterol, insulin, dextrose. ED physician was paged for assistance with airway management, patient was successfully intubated after RSI was performed with rocuronium, etomidate. Intubation was performed GlideScope and successful on the first attempt. We will repeat ABG, chemistry this morning. Appreciate further input from nephrology, pulmonology.
[2022-11-26] MEDS: propofoL 1,000 MG/100 ML VIAL IV SCH ×3 (03:20→20:22)
[2022-11-26 04:11] LABS: Arterial Blood Carboxyhemoglob 1.6 % (0-1.5); Blood Gas Oxyhemoglobin 89.4 % (94-97); Blood O2 Saturation 92.5 % (92-98.5)
[2022-11-26] MEDS: FENTANYL CITR 100 MCG/2 ML IV PRN ×2 (06:06→13:46)
[2022-11-26] MEDS: LORazepam 2 MG/ML VIAL IV PRN ×4 (06:18→20:27)
[2022-11-26 07:11] LABS: Potassium 5.9 mmol/L (3.5-5.1)
[2022-11-26] MEDS: INSULIN -REGULAR HUMAN 50 UNIT/0.5 ML ML SQ SCH ×4 (07:30→20:23)
[2022-11-26] MEDS: ENOXAPARIN 30 MG/0.3 ML SQ SCH (08:45)
[2022-11-26] MEDS: THIAMINE 200 MG/2 ML INJ IVP SCH ×2 (08:45→20:28)
[2022-11-26] MEDS: CEFTRIAXONE 1,000 MG in NA CHLORIDE 0.9% 50 ML IVPB SCH (08:45)
[2022-11-26] MEDS: FAMOTIDINE 20 MG/2 ML VIAL IV SCH (08:46)
[2022-11-26] MEDS ORDERED: ROCURONIUM 50 MG/5 ML VIAL IV ONE (08:54)
[2022-11-26] MEDS ORDERED: ETOMIDATE 20 MG/10 ML VIAL IV ONE (08:54)
--- NOTE | 2022-11-26 10:09 | P.PN ---
Subjective Date of Service: 11/26/22 Chief Complaint: Respiratory failure patient on a ventilator Patient is 62 years of age admitted with altered mental status possible drug/narcotic overdose condition worsened he became hypoxic hypercapnic was initially treated on a BiPAP became worse transferred to the ICU was intubated early hours in the morning currently very stable on a propofol drip signs stable Review of Systems is unable to be obtained Physical Examination - Vital Signs Temperature: 97.6 F Blood Pressure: 131/69 Pulse: 68 Respirations: 18 Pulse Ox (%): 100 - Physical Exam General: Unresponsive Respiratory: Clear to auscultation bilaterally, Diminished Cardiovascular: No edema, Regular rate/rhythm Assessment And Plan - Current Problems (Diagnosis) (1) Respiratory failure Current Visit: Yes Status: Acute Plan: Patient is 62 years of age admitted with altered mental status he is on dialysis cussed with his daughter no prior history of cardiopulmonary disease may have taken stress of doses of his additives and narcotics developed hypoxemia hypercapnia unresponsive to an IV was intubated currently stable chest x-ray is clear is no clinical evidence of sepsis no evidence of urinary tract infection nephrology consulted discussed with daughter we will try and wean him off chest x-ray clear endotracheal tube in satisfactory position head CT was initially negative hemodynamically stable discussed with daughter Qualifiers: Chronicity: unspecified (2) End stage renal disease Current Visit: Yes Status: Acute Plan: Patient has end-stage renal disease is hyperkalemic was treated with insulin nebulizers (3) Hyperkalemia Current Visit: No Status: Acute Plan: 1 dose of Lokelma today with nebulized albuterol neurology has been consulted patient is end-stage dialysis
[2022-11-26 10:25] LABS: Arterial Blood Carboxyhemoglob 1.2 % (0-1.5); Blood Gas Oxyhemoglobin 95.2 % (94-97); Blood O2 Saturation 97.7 % (92-98.5)
[2022-11-26] MEDS: ALBUTEROL 2.5 MG/3 ML NEB SOL IH SCH ×3 (10:30→20:05)
[2022-11-26] MEDS ORDERED: SODIUM ZIRCONIUM CYCLOSILICATE 10 GM/PKT FT ONE (10:45)
[2022-11-26 11:57] LABS: Thyroid Stimulating Hormone 0.434 uIU/mL (0.358-3.740)
--- NOTE | 2022-11-26 15:41 | P.PN ---
Subjective Date of Service: 11/26/22 Chief Complaint: Respiratory failure patient on a ventilator Subjective: Other (Transferred to ICU last night, now intubated/sedated.) Physical Examination - Vital Signs Temperature: 97.4 F Blood Pressure: 118/72 Pulse: 73 Respirations: 19 Pulse Ox (%): 100 - Physical Exam General: Other (Intubated/sedated.) HEENT: Atraumatic, Normocephalic, Other (+ET tube) Neck: Supple Respiratory: Other (Symmetric chest expansion) Cardiovascular: No rubs, No murmurs Gastrointestinal: Soft and benign, No guarding Musculoskeletal: No clubbing Integumentary: No warmth Neurological: Other (sedated) Urinary: Other (no bladder distention) External genitalia: Deferred Rectal: Deferred Assessment And Plan - Plan # ESRD on HD HD received today HD MWF # HyperK HD as above # AMS Utox + for BZN & opiate. Received Narcan on adm w/ improvement in his mental status Supportive care HD as above # Htn BP at goal, monitor # Anemia H/H at goal, monitor # Renal osteodystrophy Monitor Ca & Phos
[2022-11-27] MEDS: ALBUTEROL 2.5 MG/3 ML NEB SOL IH SCH ×4 (02:00→20:00)
[2022-11-27] MEDS: propofoL 1,000 MG/100 ML VIAL IV SCH ×2 (03:23→13:19)
[2022-11-27 05:16] LABS: Protime INR 1.07
[2022-11-27 05:19] LABS: Hematocrit 28.5 % (39.6-49.0); Lymphocytes % 15.5 % (15.3-44.8); MCV 87.5 fL (80-100); MPV 7.6 fL (7.6-11.3); RBC Red Blood Cell Count 3.26 M/uL (4.33-5.43)
[2022-11-27] MEDS: LORazepam 2 MG/ML VIAL IV PRN ×4 (05:20→20:01)
[2022-11-27 05:47] LABS: Potassium 4.3 mmol/L (3.5-5.1)
[2022-11-27] MEDS: INSULIN -REGULAR HUMAN 50 UNIT/0.5 ML ML SQ SCH ×4 (07:30→21:00)
[2022-11-27 08:53] LABS: Blood Morphology Comment NOT SEEN (NOT SEEN); Platelet Estimate ADEQ; Platelets, Giant FEW
[2022-11-27] MEDS: MUPIROCIN 2% OINT 22GM TUBE TOP SCH ×2 (09:00→20:56)
[2022-11-27] MEDS: CEFTRIAXONE 1,000 MG in NA CHLORIDE 0.9% 50 ML IVPB SCH (09:02)
[2022-11-27] MEDS: ENOXAPARIN 30 MG/0.3 ML SQ SCH (09:03)
[2022-11-27] MEDS: FAMOTIDINE 20 MG/2 ML VIAL IV SCH (09:03)
[2022-11-27] MEDS: THIAMINE 200 MG/2 ML INJ IVP SCH ×2 (09:03→20:56)
--- NOTE | 2022-11-27 10:32 | P.PN ---
Subjective Date of Service: 11/27/22 Chief Complaint: Respiratory failure patient on a ventilator Patient's condition is stable he is more responsive on propofol otherwise hemodynamically stable Review of Systems is unable to be obtained Physical Examination - Vital Signs Temperature: 97.4 F Blood Pressure: 99/65 Pulse: 84 Respirations: 18 Pulse Ox (%): 99 - Physical Exam General: Alert Respiratory: Clear to auscultation bilaterally Cardiovascular: No edema, Normal S1 S2 Assessment And Plan - Current Problems (Diagnosis) (1) Respiratory failure Current Visit: Yes Status: Acute Plan: Respiratory failure severely overdose of narcotics and benzos doing much better hemodynamically stable cultures all negative labs all reviewed x-ray is clear vital signs are satisfactory plan to wean off the ventilator patient is on dialysis Qualifiers: Chronicity: unspecified (2) End stage renal disease Current Visit: Yes Status: Acute Plan: Hyperkalemia resolved with dialysis (3) Hyperkalemia Current Visit: No Status: Acute Plan: 1 dose of Lokelma today with nebulized albuterol neurology has been consulted patient is end-stage dialysis
[2022-11-27] MEDS: FENTANYL CITR 100 MCG/2 ML IV PRN (15:23)
--- NOTE | 2022-11-27 15:43 | P.PN ---
Subjective Date of Service: 11/27/22 Chief Complaint: Respiratory failure patient on a ventilator Subjective: Other (remains intubated/sedated.) Physical Examination - Vital Signs Temperature: 97.6 F Blood Pressure: 126/59 Pulse: 105 Respirations: 18 Pulse Ox (%): 100 - Physical Exam General: Other (intubated/sedated) HEENT: Atraumatic, Normocephalic, Other (+ET tube) Neck: Supple, JVD not distended Respiratory: Other (symmetric chest expansion) Cardiovascular: No rubs, No murmurs Gastrointestinal: Soft and benign, No guarding Musculoskeletal: No clubbing Integumentary: No warmth Neurological: Other (sedated) Urinary: Other (no bladder distention) External genitalia: Deferred Rectal: Deferred Assessment And Plan - Plan # ESRD on HD HD received yesterday Cont HD MWF # HyperK HD as above # AMS Utox + for BZN & opiate. Received Narcan on adm w/ improvement in his mental status Supportive care HD as above # Acute respi failure Intubated/sedated Per other services # Htn BP at goal, monitor # Anemia H/H at goal, monitor # Renal osteodystrophy Monitor Ca & Phos
--- NOTE | 2022-11-27 17:03 | RAD REPORT ---
EXAM DESCRIPTION: RAD - Abdomen 1 View (KUB) - 11/26/2022 4:45 am CLINICAL HISTORY: Ngt placement COMPARISON: None. FINDINGS: Single view of the abdomen. NG tube with tip in the stomach. Leads overlie the chest and a bdomen. No definite acute osseous abnormalities. No definite free air. No dilated loops of the visual ized bowel. Prior median sternotomy. IMPRESSION: 1. NG tube with tip in the stomach. Electronically signed by: Doroteo Paris 11/26/2022 6:20 AM CORN LAB TECHNICIAN Due to temporary technical issues with the PACS/Fluency reporting system, reports are being signed by the in house radiologists without review as a courtesy to insure prompt reporting. The interpreting radiologist is fully responsible for the content of the report.
--- NOTE | 2022-11-27 17:28 | RAD REPORT ---
EXAM DESCRIPTION: RAD - Chest Single View - 11/26/2022 4:45 am CLINICAL HISTORY: Intubation COMPARISON: 11/24/2022 FINDINGS: Single frontal view of the chest. Tubes and lines: Endotracheal tube with tip 4 cm above the sangita. NG tube with tip below diaphragm. Leads overlie the chest. Cardiomediastinal silhouette: Stable Lungs: Calcification is incompletely visualized. Mild perihilar opacities. No pneumothorax. Bones: Stable. Upper abdomen: Stable. IMPRESSION: 1. Endotracheal tube in appropriate position. Otherwise relatively stable appearance of the chest. Electronically signed by: Doroteo Paris 11/26/2022 6:19 AM PLANT TENDER Due to temporary technical issues with the PACS/Fluency reporting system, reports are being signed by the in house radiologists without review as a courtesy to insure prompt reporting. The interpreting radiologist is fully responsible for the content of the report.
[2022-11-28] MEDS: LORazepam 2 MG/ML VIAL IV PRN ×3 (00:24→19:40)
[2022-11-28] MEDS: ALBUTEROL 2.5 MG/3 ML NEB SOL IH SCH ×4 (01:32→20:00)
[2022-11-28 05:12] LABS: Absolute Lymphocytes (CBC) 0.9 K/uL (0.7-4.9); Hematocrit 30.3 % (39.6-49.0); Lymphocytes % 10.8 % (15.3-44.8); MCV 87.2 fL (80-100); MPV 7.3 fL (7.6-11.3); RBC Red Blood Cell Count 3.47 M/uL (4.33-5.43)
[2022-11-28] MEDS: propofoL 1,000 MG/100 ML VIAL IV SCH ×2 (05:20→08:47)
[2022-11-28 05:30] LABS: Protime INR 1.05
[2022-11-28 05:42] LABS: Potassium 4.5 mmol/L (3.5-5.1)
[2022-11-28] MEDS: INSULIN -REGULAR HUMAN 50 UNIT/0.5 ML ML SQ SCH ×4 (07:30→21:00)
--- NOTE | 2022-11-28 07:49 | RAD REPORT ---
EXAM DESCRIPTION: Kiran Single View11/28/2022 7:36 am CLINICAL HISTORY: Hypoxia COMPARISON: November 24 FINDINGS: The lungs appear clear of acute infiltrate. The heart is mildly enlarged IMPRESSION: No acute abnormalities displayed
[2022-11-28] MEDS: FENTANYL CITR 100 MCG/2 ML IV PRN ×3 (08:03→21:44)
[2022-11-28] MEDS: CEFTRIAXONE 1,000 MG in NA CHLORIDE 0.9% 50 ML IVPB SCH (08:16)
[2022-11-28] MEDS: THIAMINE 200 MG/2 ML INJ IVP SCH ×2 (08:17→21:29)
[2022-11-28] MEDS: ENOXAPARIN 30 MG/0.3 ML SQ SCH (08:17)
[2022-11-28] MEDS: FAMOTIDINE 20 MG/2 ML VIAL IV SCH (08:17)
[2022-11-28] MEDS: MUPIROCIN 2% OINT 22GM TUBE TOP SCH ×2 (08:18→21:00)
[2022-11-28] MEDS ORDERED: DEXMEDETOMIDINE HCL 200 MCG in NA CHLORIDE 0.9% 98 ML IV SCH (10:00)
[2022-11-28] MEDS: DEXMEDETOMIDINE HCL 1,000 MCG in NA CHLORIDE 0.9% 490 ML IV SCH (12:19)
--- NOTE | 2022-11-28 12:43 | EKG ---
Test Date: 2022-11-26 Test Time: 03:05:59 Senior Analytic Consultant: DOTTIE MEASUREMENT RESULTS: Intervals: Rate: 111 PA: 162 QRSD: 100 QT: 346 QTc: 470 [place]: P: 25 PA: 162 QRS: 101 T: -18 INTERPRETIVE STATEMENTS: Sinus tachycardia Rightward axis Possible Inferior infarct, age undetermined Abnormal ECG Compared to ECG 11/24/2022 22:55:30 Right-axis deviation now present Myocardial infarct finding now present Sinus rhythm no longer present ST (T wave) deviation no longer present Possible ischemia no longer present Prolonged QT interval no longer present Electronically Signed On 11-28-22 12:37:34 [employer] ATTORNEY by Robby Cobb
--- NOTE | 2022-11-28 16:12 | P.PN ---
Subjective Date of Service: 11/28/22 Chief Complaint: Respiratory failure patient on a ventilator Patient continues to remain agitated unable to wean started on dexmedetomidine drip Review of Systems is unable to be obtained Physical Examination - Vital Signs Temperature: 97.4 F Blood Pressure: 136/92 Pulse: 91 Respirations: 18 Pulse Ox (%): 99 - Physical Exam General: Unresponsive Respiratory: Clear to auscultation bilaterally, Diminished Cardiovascular: No edema, Regular rate/rhythm Assessment And Plan - Current Problems (Diagnosis) (1) Respiratory failure Current Visit: Yes Status: Acute Plan: Respiratory failure condition stable will plan to wean off propofol start dexmedetomidine no evidence of sepsis DC antibiotics resume warfarin changed to subcu heparin Qualifiers: Chronicity: unspecified (2) End stage renal disease Current Visit: Yes Status: Acute Plan: Hyperkalemia resolved with dialysis
--- NOTE | 2022-11-28 16:29 | P.PN ---
Subjective Date of Service: 11/28/22 Chief Complaint: Respiratory failure patient on a ventilator Patient's condition is stable he is more responsive on propofol otherwise hemodynamically stable Physical Examination - Vital Signs Temperature: 97.4 F Blood Pressure: 136/92 Pulse: 91 Respirations: 18 Pulse Ox (%): 99 Assessment And Plan - Current Problems (Diagnosis) (1) Respiratory failure Current Visit: Yes Status: Acute Plan: Respiratory failure severely overdose of narcotics and benzos doing much better hemodynamically stable cultures all negative labs all reviewed x-ray is clear vital signs are satisfactory plan to wean off the ventilator patient is on dialysis Qualifiers: Chronicity: unspecified (2) End stage renal disease Current Visit: Yes Status: Acute Plan: Hyperkalemia resolved with dialysis (3) Hyperkalemia Current Visit: No Status: Acute Plan: 1 dose of Lokelma today with nebulized albuterol neurology has been consulted patient is end-stage dialysis
[2022-11-28] MEDS ORDERED: HEPARIN 5000 UNIT/ML 1 ML VIAL IV SCH (21:00)
[2022-11-28] MEDS: HEPARIN 5000 UNIT/ML 1 ML VIAL SQ SCH (21:29)
[2022-11-29] MEDS: ALBUTEROL 2.5 MG/3 ML NEB SOL IH SCH ×4 (01:50→20:35)
[2022-11-29] MEDS: DEXMEDETOMIDINE HCL 1,000 MCG in NA CHLORIDE 0.9% 490 ML IV SCH (02:58)
--- NOTE | 2022-11-29 04:11 | PN ---
Date of Progress Note: 11/28/2022 Chief Complaint: Respiratory failure, acute on chronic end-stage renal disease, fluid overload. Subjective: The patient received dialysis to obtain negative fluid balance. The patient remains int ubated and ventilated. He presented to the hospital because of generalized weakness. He was found t o have altered mental status. U-tox was positive for opiates and benzodiazepine. The patient receiv ed Narcan. Review of Systems: The patient cannot provide review of systems. Physical Examination: Lungs: Equal chest extension. Heart: S1, S2. Abdomen: Soft. Extremities: Edema present in both legs. Impression And Plan: 1.End-stage renal disease, on hemodialysis. Dialysis is scheduled today with ultrafiltration. Елена tor blood pressure during dialysis. Adjust ultrafiltration goal to prevent intradialytic hypotension . 2.Hyperkalemia, controlled with dialysis. Monitor electrolytes. 3.Altered mental status due to encephalopathy as well as recent history of drugs abuse. The patient was found to have positive test for benzodiazepine and opiates. 4.Acute respiratory failure. The patient is intubated and sedated, ventilated. 5.Renal osteodystrophy. Monitor phosphorus level. 6.Anemia and chronic kidney disease. Monitor hemoglobin level. Adjust HASEEB. EB/MODL Voice ID: [id number] Report ID: [id number]
[2022-11-29 05:09] LABS: Absolute Lymphocytes (CBC) 0.6 K/uL (0.7-4.9); Hematocrit 32.4 % (39.6-49.0); Lymphocytes % 4.8 % (15.3-44.8); MCV 87.9 fL (80-100); MPV 7.6 fL (7.6-11.3); RBC Red Blood Cell Count 3.69 M/uL (4.33-5.43)
[2022-11-29 05:39] LABS: AST/SGOT 7 U/L (15-37); Albumin 3.6 g/dL (3.4-5.0); Alkaline Phosphatase 104 U/L (45-117); BUN Blood Urea Nitrogen 60 mg/dL (7-18); Bicarbonate 24 mmol/L (21-32); Bilirubin Total 0.5 mg/dL (0.2-1.0); Glomerular Filtration Rate 5 ml/min (=/>90); Glucose Level 174 mg/dL (74-106); Potassium 4.9 mmol/L (3.5-5.1); Protein, Total 7.9 g/dL (6.4-8.2); Sodium Level 138 mmol/L (136-145)
[2022-11-29 05:44] LABS: ALT/SGPT < 10 U/L (16-61)
[2022-11-29] MEDS: INSULIN -REGULAR HUMAN 50 UNIT/0.5 ML ML SQ SCH ×4 (07:30→21:21)
[2022-11-29] MEDS: HEPARIN 5000 UNIT/ML 1 ML VIAL SQ SCH ×2 (08:01→20:58)
[2022-11-29] MEDS: THIAMINE 200 MG/2 ML INJ IVP SCH ×2 (08:02→20:58)
[2022-11-29] MEDS: MUPIROCIN 2% OINT 22GM TUBE TOP SCH ×2 (08:02→20:58)
[2022-11-29] MEDS: FAMOTIDINE 20 MG/2 ML VIAL IV SCH (08:02)
--- NOTE | 2022-11-29 11:44 | P.PN ---
Subjective Date of Service: 11/29/22 Chief Complaint: Respiratory failure patient on a ventilator Patient is doing better more responsive with a dexmedetomidine drip Review of Systems is unable to be obtained Physical Examination - Vital Signs Temperature: 98.3 F Blood Pressure: 115/71 Pulse: 76 Respirations: 17 Pulse Ox (%): 100 - Physical Exam General: Unresponsive Respiratory: Clear to auscultation bilaterally Cardiovascular: No edema, Regular rate/rhythm, Normal S1 S2 Assessment And Plan - Current Problems (Diagnosis) (1) Respiratory failure Current Visit: Yes Status: Acute Plan: Respiratory failure better on a Precedex drip plan to wean off and extubate hemodynamically stable Qualifiers: Chronicity: unspecified (2) End stage renal disease Current Visit: Yes Status: Acute Plan: Hyperkalemia resolved with dialysis
--- NOTE | 2022-11-29 12:30 | P.PN ---
Subjective Date of Service: 11/29/22 Chief Complaint: Respiratory failure patient on a ventilator Patient is more awake and interactive today and tolerating spontaneous breathing trial. No issues overnight. No agitation today. Physical Examination - Vital Signs Temperature: 98.7 F Blood Pressure: 140/80 Pulse: 82 Respirations: 19 Pulse Ox (%): 100 Assessment And Plan - Current Problems (Diagnosis) (1) Acute metabolic encephalopathy Current Visit: Yes Status: Acute (2) Diabetes mellitus Current Visit: No Status: Chronic Qualifiers: Diabetes mellitus type: type 2 Diabetes mellitus buttermaker continuous churn insulin use: without group home use Diabetes mellitus complication status: with kidney complications Diabetes mellitus complication detail: with chronic kidney disease Chronic kidney disease stage: on chronic dialysis Qualified Code(s): E11.22 - Type 2 diabetes mellitus with diabetic chronic kidney disease; N18.6 - End stage renal disease; Z99.2 - Dependence on renal dialysis (3) ESRD (end stage renal disease) on dialysis Current Visit: No Status: Chronic (4) Acute hypercapnic respiratory failure Current Visit: Yes Status: Acute - Plan Physical Exam General: Awake, In no apparent distress, drowsy but arousable on sedation. HEENT: ET tube. Respiratory: Diminished bilaterally Cardiovascular: Regular rate/rhythm, Normal S1 S2 Gastrointestinal: Normal bowel sounds, No tenderness, no hepatomegaly. Musculoskeletal: No tenderness Integumentary: No rashes Neurological: Drowsy but arousable, no focal motor deficit. Assessment and plan: Metabolic encephalopathy AMS secondary to uremia versus polypharmacy. Urine toxicology screen was positive for opiate and benzodiazepine. Noted patient is on Tylenol 3 and Valium at home. Slow mental status recovery but patient is overall improving. He is more awake and no longer agitated. Plan to extubate today. Hypercapnic respiratory failure Likely secondary to altered mental status. Clinically improved. Currently on mechanical ventilation. Plans to extubate today. ESRD on HD with hyperkalemia Nephrology is following for hemodialysis. Chronic IJ clot-noncompliant with warfarin Continue warfarin, monitor INR daily. Chronic diastolic congestive heart failure Volume management with dialysis. Hypertension Continue home medications.
[2022-11-29] MEDS ORDERED: EPOETIN 4,000 UNIT/ML VIAL IV SCH (14:30)
--- NOTE | 2022-11-29 14:33 | P.PN ---
Subjective Date of Service: 11/29/22 Chief Complaint: Respiratory failure patient on a ventilator Subjective Pt with ESRD , admitted fo r respiratory failure , required incubation Today Pt esxtubated muffled voice HD tomorrow Physical exam General: Awake, inmild distress HEENT: Atraumatic, Normocephalic Neck: Supple, no elevated JVD Respiratory: decreased air Entry Cardiovascular: No rubs, No murmurs Gastrointestinal: Soft and benign, Non-distended Musculoskeletal: No clubbing Integumentary: No warmth Neurological: Normal tone, Sensation intact Lymphatics: No axilla or inguinal lymphadenopathy Urinary: Other (no bladder distention) A/P # ESRD on HD HD received yesterday Cont HD MWF # HyperK HD as above # AMS Utox + for BZN & opiate. Received Narcan on adm w/ improvement in his mental status Supportive care HD as above # Acute respi failure now extubated Per other services # Htn BP controlled # Anemia H/H at goal, monitor # Renal osteodystrophy Monitor Ca & Phos Physical Examination - Vital Signs Temperature: 98.7 F Blood Pressure: 140/80 Pulse: 82 Respirations: 19 Pulse Ox (%): 100
[2022-11-30] MEDS: ALBUTEROL 2.5 MG/3 ML NEB SOL IH SCH ×4 (01:40→20:00)
[2022-11-30 05:12] LABS: Absolute Lymphocytes (CBC) 0.8 K/uL (0.7-4.9); Hematocrit 28.3 % (39.6-49.0); Lymphocytes % 7.7 % (15.3-44.8); MCV 87.8 fL (80-100); MPV 7.5 fL (7.6-11.3); RBC Red Blood Cell Count 3.22 M/uL (4.33-5.43)
[2022-11-30 05:24] LABS: Potassium 3.7 mmol/L (3.5-5.1)
[2022-11-30 05:40] VITALS: BMI 28.2
[2022-11-30] MEDS: INSULIN -REGULAR HUMAN 50 UNIT/0.5 ML ML SQ SCH ×4 (07:30→20:40)
[2022-11-30] MEDS: THIAMINE 200 MG/2 ML INJ IVP SCH ×2 (07:42→22:52)
[2022-11-30] MEDS: HEPARIN 5000 UNIT/ML 1 ML VIAL SQ SCH (07:42)
[2022-11-30] MEDS: FAMOTIDINE 20 MG/2 ML VIAL IV SCH (07:42)
[2022-11-30] MEDS: MUPIROCIN 2% OINT 22GM TUBE TOP SCH ×2 (08:00→20:39)
[2022-11-30] MEDS ORDERED: POLYVINYL ALCOHOL 1.4% 15 ML EACH EYE PRN (08:19)
--- NOTE | 2022-11-30 13:41 | P.PN ---
Subjective Date of Service: 11/30/22 Chief Complaint: Respiratory failure patient on a ventilator Patient was extubated yesterday. He is stable on room air He currently has no complaint. Nurse reports generalized weakness. Physical Examination - Vital Signs Temperature: 97.6 F Blood Pressure: 137/76 Pulse: 84 Respirations: 20 Pulse Ox (%): 100 Assessment And Plan - Current Problems (Diagnosis) (1) Acute metabolic encephalopathy Current Visit: Yes Status: Acute (2) Diabetes mellitus Current Visit: No Status: Chronic Qualifiers: Diabetes mellitus type: type 2 Diabetes mellitus shelter insulin use: without termite exterminator use Diabetes mellitus complication status: with kidney complications Diabetes mellitus complication detail: with chronic kidney disease Chronic kidney disease stage: on chronic dialysis Qualified Code(s): E11.22 - Type 2 diabetes mellitus with diabetic chronic kidney disease; N18.6 - End stage renal disease; Z99.2 - Dependence on renal dialysis (3) ESRD (end stage renal disease) on dialysis Current Visit: No Status: Chronic (4) Acute hypercapnic respiratory failure Current Visit: Yes Status: Acute - Plan Physical Exam General: Awake, AOOx 3, In no apparent distress, Respiratory: Clear to auscultation bilaterally. Cardiovascular: Regular rate/rhythm, Normal S1 S2 Gastrointestinal: Normal bowel sounds, No tenderness, no hepatomegaly. Musculoskeletal: No tenderness Integumentary: No rashes Neurological: No focal motor deficit. Assessment and plan: Metabolic encephalopathy AMS secondary to uremia versus polypharmacy. Urine toxicology screen was positive for opiate and benzodiazepine. Noted patient is on Tylenol 3 and Valium at home. Mental status has improved significantly PT to evaluate generalized weakness Hypercapnic respiratory failure Likely secondary to altered mental status. Clinically improved. Status post extubation. Monitor closely ESRD on HD with hyperkalemia Nephrology is following for hemodialysis. Chronic IJ clot-noncompliant with warfarin Continue warfarin, monitor INR daily. Chronic diastolic congestive heart failure Volume management with dialysis. Hypertension Continue home medications.
--- NOTE | 2022-11-30 13:53 | PN ---
Date of Progress Note: 11/30/2022 Subjective: The patient was admitted with over volume, altered mental status, hyperkalemia. The pat ient was dialyzed. The patient extubated today. Blood pressure has been stable. Still altered ment al status. Physical Examination: Vital Signs: Blood pressure 121/72, pulse of 88, afebrile. The patient had ultrafiltration of 2 L. Chest: Clear to auscultation. Heart: S1, S2. Systolic murmur. Abdomen: Soft, nontender. Extremity: No edema. Neurologic: Alert. No focality. Laboratory Data: Hemoglobin 9.6. Sodium 132, potassium 3.7, bicarb 23, BUN 79, creatinine 11.4, sony cium 9.5. Current Medications: The patient on include; 1.Epogen. 2.Heparin. 3.Coumadin. 4.Pepcid. 5.Zofran. 6.Mupirocin. Assessment And Plan: 1.End-stage renal disease, over volume, currently normal volume. Resume dialysis Monday, Monday, Monday. The patient is scheduled for dialysis today. 2.Hypertension, controlled, optimal. Continue current treatment. We will utilize blood pressure fo r more ultrafiltration. 3.Hyperkalemia, status post dialysis, resolved. 4.Hyponatremia, dilutional, secondary to renal failure, over volume. Will be corrected with dialysi s. 5.Over volume, status post dialysis, currently normal volume. We will back the patient to his regul ar schedule. 6.Hypercapnic respiratory failure, intubated, extubated. We will follow up with Pulmonary. 7.Altered mental status. We will follow up with primary. EDGARDO/BETTINA Voice ID: [id number] Report ID: [id number]
[2022-11-30 18:25] LABS: Protime INR 1.01
[2022-11-30] MEDS: NEPRO SHAKE 237 ML CAN PO SCH (20:40)
[2022-12-01] MEDS: ALBUTEROL 2.5 MG/3 ML NEB SOL IH SCH ×4 (00:55→19:40)
[2022-12-01] MEDS ORDERED: ALBUTEROL 2.5 MG/3 ML NEB SOL ONE (00:57)
[2022-12-01 02:51] LABS: C.diff Antigen/Toxin Ag pos : Tox neg (NEG : NEG)
[2022-12-01 05:06] LABS: Protime INR 0.97
[2022-12-01 05:09] LABS: MPV 7.6 fL (7.6-11.3)
[2022-12-01 05:21] LABS: Absolute Lymphocytes (CBC) 0.7 K/uL (0.7-4.9); Hematocrit 31.2 % (39.6-49.0); Lymphocytes % 8.3 % (15.3-44.8); RBC Red Blood Cell Count 3.58 M/uL (4.33-5.43)
[2022-12-01 05:25] LABS: Potassium 3.6 mmol/L (3.5-5.1)
[2022-12-01] MEDS: INSULIN -REGULAR HUMAN 50 UNIT/0.5 ML ML SQ SCH ×4 (07:30→21:00)
[2022-12-01] MEDS: FAMOTIDINE 20 MG/2 ML VIAL IV SCH (08:36)
[2022-12-01] MEDS: THIAMINE 200 MG/2 ML INJ IVP SCH ×2 (08:36→19:22)
[2022-12-01] MEDS: NEPRO SHAKE 237 ML CAN PO SCH ×2 (08:37→21:00)
[2022-12-01] MEDS: MUPIROCIN 2% OINT 22GM TUBE TOP SCH ×2 (08:37→21:00)
--- NOTE | 2022-12-01 08:44 | P.CNS ---
Date of Consult: 12/01/22 Chief Complaint: Respiratory failure patient on a ventilator History of Present Illness: 62-year-old male with history of ESRD on HD, CHF, hypertension presents to the emergency department for altered mental status. reported to ED staff that when she came home his eyes appear to be rolling back in his head and he was altered. He was evaluated in the emergency department his labs were significant for mild hyponatremia, mild hyperkalemia BUN 67 creatinine 10.7 reports around 7 .9 urine 3+ protein 2+ blood no nitrites or leukocytes UDS positive for benzos and opioids. He was drowsy/altered he was given a small dose of Narcan with mild to moderate improvement in his mental status. ED provider wishes to admit patient for further evaluation and management of AMS, hyperkalemia. Patient is positive with C. Diff in stool on 12/01. ID has been consulted for antibiotics recommendations and management Allergies No Known Allergies Allergy (Verified 01/01/21 21:09) Home Medications: Codeine/APAP [Tylenol #3*] 300 mg PO TID PRN 04/08/22 Folic Acid/Vit B Complex and C [Fauzia-Conor Tablet] 1 tab PO DAILY 04/08/22 Sucroferric Oxyhydroxide [Velphoro] 500 mg PO TIDWMHS 04/08/22 Amlodipine Besylate/Benazepril [Amlodipine-Benazepril 10-20 mg] 1 each PO TID #30 cap 11/02/22 Bumetanide 1 tab PO DAILY 11/02/22 Hydralazine [Apresoline*] 25 mg PO TID #90 tab 11/02/22 Sevelamer Carbonate [Renvela*] 800 mg PO TIDWM #90 tab 11/02/22 Warfarin Sodium [Coumadin*] 7.5 mg PO DAILY 5 PM tab 11/02/22 Zolpidem Tartrate [Ambien*] 1 tab PO BEDTIME PRN 11/02/22 carvediloL [Coreg*] 3.125 mg PO BID 6AM 6PM #30 tab 11/02/22 - Past Medical/Surgical History Diabetic: Yes -: End-stage renal disease on hemodialysis -: Hypertension -: HTN -: 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 - Family History Father Medical History: Heart disease - Social History Smoking Status: Unknown if ever smoked Alcohol use: No CD- Drugs: No Caffeine use: No Place of Residence: Home Review of Systems 10-point ROS is otherwise unremarkable Gastrointestinal: Diarrhea (every 20 mins, per patient) Physical Examination Temp Pulse Resp BP Pulse Ox 96.9 F 90 17 158/88 H 100 12/01/22 00:00 12/01/22 00:00 12/01/22 00:00 12/01/22 00:00 12/01/22 00:00 General: Alert, In no apparent distress, Oriented x3 Respiratory: Clear to auscultation bilaterally Cardiovascular: No edema, Normal S1 S2 Gastrointestinal: Normal bowel sounds Musculoskeletal: No swelling, No erythema Integumentary: No rashes, No breakdown Neurological: Normal speech, Normal tone, Normal affect Urinary: Other (on HD) active medications Albuterol Sulfate (Albuterol 2.5 Mg/3 Ml Neb Velia) 2.5 mg IH [id number] [facility] Last Admin: 12/01/22 00:55 Dose: 2.5 mg Artificial Tears (Polyvinyl Alcohol 1.4% 15 Ml) 1 drops EACH EYE TID PRN PRN Reason: dry eyes Last Admin: 11/30/22 09:58 Dose: 1 drops Enteral Nutritional Formula (Nepro Shake 237 Ml Can) 237 ml PO BID [facility] Last Admin: 12/01/22 08:37 Dose: 237 ml Epoetin James (Epoetin 4,000 Unit/Ml Vial) 4,000 unit IV EVERY HD RUPA Famotidine (Famotidine 20 Mg/2 Ml Vial) 20 mg IV DAILY [facility] Last Admin: 12/01/22 08:36 Dose: 20 mg Glucagon (Glucagon 1 Mg/Vial) 1 mg IM 1X PRN; Protocol PRN Reason: HYPOGLYCEMIA Heparin Sodium (Porcine) (Heparin 1,000 Unit/Ml Vial) 3,000 unit IV EVERY HD PRN PRN Reason: Prevent Lines Clotting Last Admin: 11/30/22 19:30 Dose: 3,000 unit Dextrose (Dextrose 10% Water Iv Soln.) 125 mls @ 0 mls/hr IV PRN PRN; Protocol PRN Reason: HYPOGLYCEMIA Insulin Human Regular (Insulin -Regular Human 50 Unit/0.5 Ml Ml) 0 unit SQ ACHS [facility]; Protocol Last Admin: 12/01/22 07:30 Dose: Not Given Mupirocin (Mupirocin 2% Oint 22gm Tube) 1 appl TOP BID [facility] Stop: 12/02/22 09:01 Last Admin: 12/01/22 08:37 Dose: Not Given Ondansetron HCl (Ondansetron 4 Mg/2 Ml Vial) 4 mg IV Q6HP PRN PRN Reason: NAUSEA / VOMITING Sodium Chloride (Flush Normal Saline 10 Ml) 10 ml IV BID [facility] Last Admin: 12/01/22 08:37 Dose: 10 ml Thiamine HCl (Thiamine 200 Mg/2 Ml Inj) 200 mg IVP BID [facility] Last Admin: 12/01/22 08:36 Dose: 200 mg Warfarin Sodium (Warfarin Sodium 7.5 Mg Tab) 7.5 mg PO DAILY 5 PM [facility] Last Admin: 11/25/22 16:58 Dose: Not Given Imagings Data: RADChest Single View11/28/2022 FINDINGS: The lungs appear clear of acute infiltrate. The heart is mildly enlarged IMPRESSION: No acute abnormalities displayed RAD - Abdomen 1 View (KUB) - 11/26/2022 FINDINGS: Single view of the abdomen. NG tube with tip in the stomach. Leads overlie the chest and abdomen. No definite acute osseous abnormalities. No definite free air. No dilated loops of the visualized bowel. Prior median sternotomy. IMPRESSION: 1. NG tube with tip in the stomach RAD - Chest Single View - 11/26/2022 FINDINGS: Single frontal view of the chest. Tubes and lines: Endotracheal tube with tip 4 cm above the sangita. NG tube with tip below diaphragm. Leads overlie the chest. Cardiomediastinal silhouette: Stable Lungs: Calcification is incompletely visualized. Mild perihilar opacities. No pneumothorax. Bones: Stable. Upper abdomen: Stable. IMPRESSION: 1. Endotracheal tube in appropriate position. Otherwise relatively stable appearance of the chest CT - Head Brain Wo Cont - 11/25/2022 FINDINGS: There is diffuse age-appropriate atrophy throughout the brain parenchyma. Mild periventricular white matter changes are present, and there is mild ex vacuo dilatation of the ventricular system. There is no intra-axial or extra-axial bleed. There is no mass or mass effect. Chronic left basal ganglia lacunar infarcts. The visualized paranasal sinuses and mastoid air cells are patent. No acute fracture is identified. IMPRESSION: No acute intracranial abnormality identified. RAD - Chest Single View - 11/24/2022 FINDINGS: Mild perihilar interstitial prominence. No infiltrate identified. No pleural effusion. No pneumothorax. Mild cardiomegaly. No significant osseous abnormality. IMPRESSION: Mild perihilar interstitial prominence. No infiltrate identified. Mild cardiomegaly - Problems (1) C. difficile colitis Plan: Cultures: - 12/01 Stool: C. Diff positive Antibiotics: - Current None Recommendations: - PO Vancomycin for total of 10 days Conclusions/Impression: - C. Diff colitis: - PO Vancomycin for total of 10 days - Metabolic encephalopathy secondary to uremia, possibly polypharmacy - Anemia of chronic disease - ESRD on HD with hyperkalemia - Chronic IJ clot-noncompliant with warfarin - Chronic diastolic congestive heart failure - Hypertension ID will monitor the patient closely for signs of infection with fever and WBC trends Case has been discussed with Dr. Jules N Thank you Dr. Hinds for consultation
--- NOTE | 2022-12-01 13:32 | P.PN ---
Subjective Date of Service: 12/01/22 Chief Complaint: Respiratory failure patient on a ventilator Patient is awake and alert, stable on room air. He is complaining of generalized weakness. 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 insulin use: without food or baggage handling rampman use Diabetes mellitus complication status: with kidney complications Diabetes mellitus complication detail: with chronic kidney disease Chronic kidney disease stage: on chronic dialysis Qualified Code(s): E11.22 - Type 2 diabetes mellitus with diabetic chronic kidney disease; N18.6 - End stage renal disease; Z99.2 - Dependence on renal dialysis (3) ESRD (end stage renal disease) on dialysis Current Visit: No Status: Chronic (4) Acute hypercapnic respiratory failure Current Visit: Yes Status: Acute - Plan Physical Exam General: Awake, AOO x 3, In no apparent distress, Respiratory: Clear to auscultation bilaterally. Cardiovascular: Regular rate/rhythm, Normal S1 S2 Gastrointestinal: Normal bowel sounds, No tenderness, no hepatomegaly. Musculoskeletal: No tenderness Integumentary: No rashes Neurological: No focal motor deficit. Assessment and plan: Metabolic encephalopathy AMS secondary to uremia versus polypharmacy. Urine toxicology screen was positive for opiate and benzodiazepine. Noted patient is on Tylenol 3 and Valium at home. AMS resolved, mental status is at baseline P/OT for generalized weakness. Patient is currently two-person assist for mobility which is totally new for him. He stated he has been ambulatory and has even been exercising. He will benefit from acute rehab Hypercapnic respiratory failure Likely secondary to altered mental status. Status post extubation. Clinically improved. He is stable on room air and saturating at 100%. ESRD on HD with hyperkalemia Nephrology is following for hemodialysis. Chronic IJ clot-noncompliant with warfarin Continue warfarin, monitor INR daily. Chronic diastolic congestive heart failure Volume management with dialysis. Hypertension Continue home medications.
[2022-12-01] MEDS: WARFARIN SODIUM 7.5 MG TAB PO SCH (19:04)
[2022-12-02] MEDS: ALBUTEROL 2.5 MG/3 ML NEB SOL IH SCH ×4 (01:40→20:00)
[2022-12-02] MEDS ORDERED: ACETAMINOPHEN 500 MG TAB ONE (01:56)
[2022-12-02] MEDS ORDERED: ACETAMINOPHEN 500 MG TAB PO ONE (02:30)
[2022-12-02 05:14] LABS: Potassium 3.7 mmol/L (3.5-5.1)
[2022-12-02] MEDS: INSULIN -REGULAR HUMAN 50 UNIT/0.5 ML ML SQ SCH ×3 (07:30→16:30)
[2022-12-02] MEDS: MUPIROCIN 2% OINT 22GM TUBE TOP SCH (08:31)
[2022-12-02] MEDS: FAMOTIDINE 20 MG/2 ML VIAL IV SCH (08:32)
[2022-12-02] MEDS: NEPRO SHAKE 237 ML CAN PO SCH (08:32)
[2022-12-02] MEDS: THIAMINE 200 MG/2 ML INJ IVP SCH (08:32)
--- NOTE | 2022-12-02 09:06 | P.DS ---
Admission Date: 11/25/22 Discharge Date: 12/02/22 Disposition: [place] [facility] CARE Discharge Condition: FAIR Reason for Admission: Respiratory failure patient on a ventilator - Problems (1) Acute metabolic encephalopathy Current Visit: Yes Status: Acute (2) Diabetes mellitus Current Visit: No Status: Chronic Qualifiers: Diabetes mellitus type: type 2 Diabetes mellitus mcfp insulin use: without truck terminal manager use Diabetes mellitus complication status: with kidney complications Diabetes mellitus complication detail: with chronic kidney disease Chronic kidney disease stage: on chronic dialysis Qualified Code(s): E11.22 - Type 2 diabetes mellitus with diabetic chronic kidney disease; N18.6 - End stage renal disease; Z99.2 - Dependence on renal dialysis (3) ESRD (end stage renal disease) on dialysis Current Visit: No Status: Chronic (4) Acute hypercapnic respiratory failure Current Visit: Yes Status: Acute Brief History of Present Illness: 62-year-old male with history of ESRD on HD, CHF, hypertension presents to the emergency department for altered mental status. reported to ED staff that when she came home his eyes appear to be rolling back in his head and he was altered. He was evaluated in the emergency department his labs were significant for mild hyponatremia, mild hyperkalemia BUN 67 creatinine 10.7 reports around 7.9 urine 3+ protein 2+ blood no nitrites or leukocytes UDS positive for benzos and opioids. He was altered and he was given a small dose of Narcan with mild to moderate improvement in his mental status. Patient admitted for further management of AMS, hyperkalemia. Hospital Course: Patient admitted to the ICU and the following medical problems addressed: Metabolic encephalopathy AMS secondary to uremia versus polypharmacy. Urine toxicology screen was positive for opiate and benzodiazepine. Noted patient is on Tylenol 3 and Valium at home. Patient was intubated for airway protection and managed in the ICU. Patient seen by nephrology and he underwent multiple sessions of hemodialysis. AMS resolved, mental status is at baseline. He was subsequently extubated and transferred to the general medical floor. P/OT saw patient for generalized weakness. Patient was initially two-person assist for mobility which is totally new for him. His functional status improved and was able to ambulate in the hallway with a walker. He is discharged to home with home health for PT. Tylenol 3 and Valium discontinued on discharge. Hypercapnic respiratory failure Likely secondary to altered mental status. He was on mechanical ventilation for a few days and then successfully extubated to room air. He is stable on room air and saturating at 100%. ESRD on HD with hyperkalemia Nephrology evaluated and followed patient. Patient underwent hemodialysis Chronic IJ clot-noncompliant with warfarin Continued warfarin, and monitored INR daily. INR was subtherapeutic so his Coumadin dose is increased from 7.5 mg to 10 mg daily Chronic diastolic congestive heart failure Volume status managed with dialysis. Hypertension Home antihypertensives continued on discharge. Noted patient has been taking amlodipine/Benzapril 3 times a day. Benzapril and amlodipine discontinued. Patient blood pressure was borderline low the initial period during this hospitalization. Vital Signs/Physical Exam: Temp Pulse Resp BP Pulse Ox 97.4 F 82 16 161/79 H 100 12/02/22 08:00 12/02/22 08:00 12/02/22 08:00 12/02/22 08:00 12/02/22 08:00 General: Alert, In no apparent distress, Oriented x3 HEENT: Mucous membr. moist/pink Neck: JVD not distended Respiratory: Clear to auscultation bilaterally, Normal air movement Cardiovascular: Regular rate/rhythm, Normal S1 S2 Gastrointestinal: Soft and benign, Non-distended Musculoskeletal: No tenderness Integumentary: No cyanosis Neurological: Normal strength at 5/5 x4 extr Laboratory Data at Discharge: WBC 8.50 K/uL (4.3-10.9) 12/01/22 04:18 Hgb 10.5 g/dL (13.6-17.9) L D 12/01/22 04:18 Hct 31.2 % (39.6-49.0) L 12/01/22 04:18 Plt Count 244 K/uL (152-406) 12/01/22 04:18 PT 10.7 SECONDS (9.5-12.5) 12/01/22 04:18 INR 0.97 12/01/22 04:18 APTT 31.9 SECONDS (24.3-36.9) 11/24/22 22:43 Sodium 132 mmol/L (136-145) L 12/02/22 04:20 Potassium 3.7 mmol/L (3.5-5.1) 12/02/22 04:20 BUN 67 mg/dL (7-18) H 12/02/22 04:20 Creatinine 9.88 mg/dL (0.70-1.30) H* 12/02/22 04:20 Glucose 121 mg/dL (74-106) H 12/02/22 04:20 Total Bilirubin 0.5 mg/dL (0.2-1.0) 11/29/22 04:47 AST 7 U/L (15-37) L 11/29/22 04:47 ALT < 10 U/L (16-61) L 11/29/22 04:47 Alkaline Phosphatase 104 U/L (45-117) 11/29/22 04:47 Home Medications: Folic Acid/Vit B Complex and C [Fauzia-Conor Tablet] 1 tab PO DAILY 04/08/22 Sucroferric Oxyhydroxide [Velphoro] 500 mg PO TIDWMHS 04/08/22 Bumetanide 1 tab PO DAILY 11/02/22 Hydralazine [Apresoline*] 25 mg PO TID #90 tab 11/02/22 Sevelamer Carbonate [Renvela*] 800 mg PO TIDWM #90 tab 11/02/22 carvediloL [Coreg*] 3.125 mg PO BID 6AM 6PM #30 tab 11/02/22 Epoetin [Retacrit] 4,000 unit IV EVERY HD vial 12/02/22 Mupirocin Oint [Bactroban 2% Ointment*] 1 appl TOP BID #1 tube 12/02/22 Nepro Shake [Nepro*] 237 ml PO BID #30 can 12/02/22 Warfarin Sodium 10 mg PO DAILY #15 tab 12/02/22 New Medications: Mupirocin Oint [Bactroban 2% Ointment*] 1 appl TOP BID #1 tube Nepro Shake [Nepro*] 237 ml PO BID #30 can Warfarin Sodium 10 mg PO DAILY #15 tab Physician Discharge Instructions: PROBLEM: ESRD, AMS GOAL: Clear understanding of disease process INSTRUCTIONS: Ok to discharge home Follow up with Primary Care Provider in 1-2 weeks Take new medications as prescribed Contact physician or return to ER for any complications or concerns Call [phone] for any questions regarding hospital stay Diet: ADA Activity: As tolerated [facility] Services Needed: Home Health Name of Company: Date or Referral: IMMUNIZATION Influenza Vaccine Indicated: Influenza Vaccine Given: Date Given: Pneumonia Vaccine Indicated: Pneumonia Vaccine Given: Date Given: Diet: ADA Activity: Ad adina Followup: Unknown,U [Primary Care Provider] - Constantin Ellison MD [ACTIVE - CAN ADMIT] - 1-2 Weeks Time spent managing pt's care (in minutes): 38
[2022-12-02 09:36] VITALS: O2SAT 100
--- NOTE | 2022-12-02 11:36 | P.PN ---
Subjective Date of Service: 12/02/22 Chief Complaint: Respiratory failure patient on a ventilator Subjective: No new changes (Received HD today.) Physical Examination - Vital Signs Temperature: 97.4 F Blood Pressure: 161/79 Pulse: 82 Respirations: 16 Pulse Ox (%): 100 - Physical Exam General: Other (Chronically ill appearing) HEENT: Atraumatic, Normocephalic Neck: Supple, JVD not distended Respiratory: Other (symmetric chest expansion) Cardiovascular: No rubs, No murmurs Gastrointestinal: Soft and benign, No guarding Musculoskeletal: No clubbing Integumentary: No warmth Neurological: Normal tone Lymphatics: No axilla or inguinal lymphadenopathy Urinary: Other (No bladder distention) External genitalia: Deferred Rectal: Deferred Assessment And Plan - Plan # ESRD on HD HD received today Cont HD MWF # HyperK Resolved HD as above # AMS Resolved Utox + for BZN & opiate. Received Narcan on adm w/ improvement in his mental status. Supportive care HD as above # Acute respi failure Now extubated Per other services # Htn Cont current med regimen # Anemia H/H at goal, monitor # Renal osteodystrophy Monitor Ca & Phos
--- NOTE | 2022-12-02 15:44 | PN ---
Subjective: The patient lying in bed. No new acute event. Chart reviewed. Objective: Vital Signs: Temperature 97, pulse 80, respirations 16, blood pressure 161/79. Lungs: Basal crackles. Heart: S1, S2. Regular. Abdomen: Soft, nontender. Bowel sounds present. Extremity: No edema. Laboratory Data: Shows WBC 8.5, hemoglobin 10.5, platelets are 244. Chemistry shows BUN of 67, crea tinine 0.988. Blood cultures are negative. Assessment And Plan: C diff antigen positive and toxin negative. The patient has chronic diarrhea s econdary to irritable bowel syndrome. Not in any acute distress. Anemia of chronic disease, end-sta ge renal disease. We will follow the patient as needed. NF/MODL Voice ID: [id number] Report ID: [id number]
[2022-12-02] MEDS: WARFARIN SODIUM 7.5 MG TAB PO SCH (17:00)
--- NOTE | 2022-12-02 21:11 | PN ---
Date of Progress Note: 12/01/2022 Chief Complaint: End-stage renal disease, fluid overload. Subjective: The patient is recovering from shock and respiratory failure. He was intubated. Curren tly, he is extubated and off pressors. The patient denies complaints. Physical Examination: Lungs: Clear to auscultation bilaterally. Heart: S1, S2. Abdomen: Soft, benign. Extremities: No edema. Impression And Plan: 1.End-stage renal disease, fluid overload. Currently the patient had been well controlled with dial ysis. The patient has history of noncompliance with fluid restriction and dialysis schedules. 2.Hypertension, controlled and blood pressure is improving. 3.Hyperkalemia, resolved. The patient responded to dialysis. Continue low-potassium diet. Encoura ge compliance with diet limitation. 4.Hyponatremia secondary to volume overload, dilutional due to fluid overload. The patient received dialysis with ultrafiltration. Sodium level overall improved. 5.Hypercapnic respiratory failure. The patient is extubated and he will follow up with Pulmonary. EB/MODL Voice ID: [id number] Report ID: [id number]
[2022-12-03] MEDS: ALBUTEROL 2.5 MG/3 ML NEB SOL IH SCH (02:00)
[2022-12-03 07:05] VITALS: BP 161/79; TEMP 97.4
== END 2022-12-02 18:30 | disposition home health service (06) | DRG 917 ==
LOC: ER 22:24 → ERHOLD 11-25 01:56 → 4TH 11-25 02:53 → 3RD-ICU 11-26 01:29 → 4TH 11-30 19:14
PROVIDERS: ADMIT Internal Medicine Sleep Medicine; ATTEND Internal Medicine
PROC: 5A1945Z Respiratory Ventilation, 24-96 Consecutive Hours (ICD-10-PCS; principal; 2022-11-26)
PROC: 0BH18EZ Insertion of Endotracheal Airway into Trachea, Via Natural or Artificial Opening Endoscopic (ICD-10-PCS; 2022-11-26)
PROC: 5A1D70Z Performance of Urinary Filtration, Intermittent, Less than 6 Hours Per Day (ICD-10-PCS; 2022-11-26)
DX: T40.601A Poisoning by unspecified narcotics, accidental (unintentional), initial encounter (principal); G92.8 Other toxic encephalopathy; J96.02 Acute respiratory failure with hypercapnia; N18.6 End stage renal disease; I50.32 Chronic diastolic (congestive) heart failure; I13.2 Hypertensive heart and chronic kidney disease with heart failure and with stage 5 chronic kidney disease, or end stage renal disease; E87.1 Hypo-osmolality and hyponatremia; A04.72 Enterocolitis due to Clostridium difficile, not specified as recurrent; R57.9 Shock, unspecified; T42.4X1A Poisoning by benzodiazepines, accidental (unintentional), initial encounter; E87.5 Hyperkalemia; E11.22 Type 2 diabetes mellitus with diabetic chronic kidney disease; D63.1 Anemia in chronic kidney disease; N25.0 Renal osteodystrophy; T45.516A Underdosing of anticoagulants, initial encounter; Z78.1 Physical restraint status; Z99.2 Dependence on renal dialysis; Z79.01 Long term (current) use of anticoagulants; Z91.14 Patient's other noncompliance with medication regimen; Z91.128 Patient's intentional underdosing of medication regimen for other reason; Z79.899 Other long term (current) drug therapy; Z20.822 Contact with and (suspected) exposure to COVID-19
CPT/HCPCS: 0240U; 36415; 51702; 70450; 71045; 74018; 80048; 80053; 80076; 80307; 81003; 82805; 82947; 84439; 84443; 85025; 85610; 85730; 87040; 87324; 87493; 90935; 93005; 94002; 94003; 94660; 94760; 96374; 97110; 97116; 97161; 97165; 97530; 99291; G0480; J0610; J1644; J1650; J1815; J1940; J2310; J2704; J3010; J3370; J3411; J7040; J7050; J7613; Q5105

== ENCOUNTER 2023-03-22 01:22 | Inpatient (IN) | payer OTHER ==
[2023-03-22 02:15] LABS: Absolute Lymphocytes (CBC) 0.5 K/uL (0.7-4.9); Hematocrit 31.2 % (39.6-49.0); Lymphocytes % 3.7 % (15.3-44.8); MCV 90.2 fL (80-100); MPV 7.3 fL (7.6-11.3); RBC Red Blood Cell Count 3.46 M/uL (4.33-5.43)
[2023-03-22 02:29] LABS: Protime INR 0.95
[2023-03-22 02:44] LABS: Albumin 3.9 g/dL (3.4-5.0); Bilirubin Direct 0.2 mg/dL (0-0.2); Bilirubin Indirect, Calculated 0.1 mg/dL (0.2-0.8); Bilirubin Total 0.3 mg/dL (0.2-1.0); Protein, Total 7.3 g/dL (6.4-8.2); Troponin High Sensitivity 40.9 pg/mL (<58.9)
[2023-03-22 02:50] LABS: Blood Morphology Comment NOT SEEN (NOT SEEN); Platelet Estimate ADEQ
--- NOTE | 2023-03-22 03:46 | EDPHYS ---
Physician Documentation [facility] Name: Alex Cagle Age: 62 yrs Sex: Male : 1960 Arrival Date: 03/22/2023 Time: : Bed 2 Private MD: ED Physician Jordan Lemus HPI: 03/22 02:19 This 62 yrs old Male presents to ER via EMS with complaints of Altered mental status. rt 02:19 History limited due to patient with altered mental status, history obtained per EMS. rt Patient was poorly found to be unresponsive, with sonorous respirations. Given 2 mg of Narcan with significant improvement, patient's work of breathing did improve. Mumbling speech at this time. No other reported symptoms. Symptoms are moderate severity, no other aggravating or alleviating factors.. Historical: - Allergies: :32 NKA; ll3 - Home Meds: :32 Velphoro 500 mg oral tablet,chewable [Active]; amlodipine-benazepril 10-20 mg Oral cap ll3 three times a day [Active]; - PMHx: :32 CHF; Diabetes - NIDDM; ESRD; Hypertension; insomnia; ll3 - PSHx: :32 bilateral knee repairs; R shoulder; ll3 - Immunization history:: Adult Immunizations unknown. - Social history:: Smoking status: unknown. ROS: 02:19 Unable to obtain ROS due to altered mental status. rt Exam: 02:19 Head/Face: Normocephalic, atraumatic. Chest/axilla: Normal chest wall appearance and rt motion. Nontender with no deformity. No lesions are appreciated. Cardiovascular: Regular rate and rhythm with a normal S1 and S2. No gallops, murmurs, or rubs. Normal PMI, no JVD. No pulse deficits. Respiratory: Lungs have equal breath sounds bilaterally, clear to auscultation and percussion. No rales, rhonchi or wheezes noted. No increased work of breathing, no retractions or nasal flaring. Abdomen/GI: Soft, non-tender, with normal bowel sounds. No distension or tympany. No guarding or rebound. No evidence of tenderness throughout. 02:19 Constitutional: The patient appears Confused, chronically ill-appearing 02:19 ECG was reviewed by the Attending Physician. Vital Signs: 01:25 BP 127 / 64; Pulse 83; Resp 20; Temp 97.5(TE); Pulse Ox 97% on 2 lpm NC; ll3 03:10 BP 156 / 70; Pulse 68; Resp 11 S; Pulse Ox 100% 2 lpm ; as7 03:45 BP 147 / 95; Pulse 65; Resp 19; Pulse Ox 100% on 2 lpm NC; Pain 0/10; pf1 05:02 BP 120 / 83; Pulse 68; Resp 16 S; Temp 98.5(O); Pulse Ox 99% on 2 lpm NC; aa9 06:06 BP 146 / 84; Pulse 65; Resp 18; Pulse Ox 98% on R/A; Pain 0/10; pf1 03:45 Pain Scale: Adult pf1 06:06 Pain Scale: Adult pf1 MDM: 01:30 Patient medically screened. rt 03:54 Differential Diagnosis Drug ingestion, uremia, metabolic acidosis, hyperkalemia. Data rt reviewed: vital signs, nurses notes, lab test result(s), EKG, radiologic studies. Consideration of Admission/Observation Patient was admitted/placed on observation. Management of patient was discussed with the following: Hospitalist: Agrees to admit. I considered the following discharge prescriptions or medication management in the emergency department Medications were administered in the Emergency Department. See MAR. Care significantly affected by the following chronic conditions: Chronic Kidney Disease. Counseling: I had a detailed discussion with the patient and/or guardian regarding: the historical points, exam findings, and any diagnostic results supporting the discharge/admit diagnosis, lab results, radiology results, the need for further work-up and treatment in the hospital. 03/22 01:31 Order name: Acetaminophen; Complete Time: 03:12 rt 03/22 01:31 Order name: Basic Metabolic Panel; Complete Time: 03:12 rt 03/22 01:31 Order name: CBC with Diff; Complete Time: 03:12 rt 03/22 01:31 Order name: ETOH Level; Complete Time: 03:12 rt 03/22 01:31 Order name: Hepatic Function; Complete Time: 03:12 rt 03/22 01:31 Order name: PT-INR; Complete Time: 02:39 rt 03/22 01:31 Order name: Ptt, Activated; Complete Time: 02:39 rt 03/22 01:31 Order name: Salicylate; Complete Time: 03:12 rt 03/22 01:31 Order name: Troponin High Sensitivity; Complete Time: 03:12 rt 03/22 02:10 Order name: ABG rt 03/22 02:22 Order name: Manual Differential; Complete Time: 03:12 EDMS 03/22 01:31 Order name: CT Head Brain wo Cont rt 03/22 01:31 Order name: Chest Single View XRAY rt 03/22 01:31 Order name: EKG; Complete Time: 01:32 rt 03/22 01:31 Order name: EKG - Nurse/Tech; Complete Time: 01:31 rt 03/22 01:31 Order name: IV Saline Lock; Complete Time: 02:00 rt 03/22 01:31 Order name: Labs collected and sent; Complete Time: 02:00 rt 03/22 01:31 Order name: Suicide Screening ([place]); Complete Time: 02:00 rt EC:19 Rate is 79 beats/min. Rhythm is regular, Normal Sinus Rhythm with No ectopy. QRS [place] rt is Normal. TX interval is normal. QRS interval is normal. QT interval is normal. No Q waves. Clinical impression: NSR w/ Non-specific ST/T Changes. Administered Medications: 04:45 Drug: D10 in Water IVP 250 ml Route: IVP; Site: right antecubital; pf1 05:06 Follow up: Response: No adverse reaction; Marked relief of symptoms pf1 05:06 Drug: Albuterol Inhalation 2.5 mg Route: Inhalation; pf1 06:02 Follow up: Response: No adverse reaction; Marked relief of symptoms pf1 07:00 Drug: Calcium Gluconate IVPB 1 grams Route: IVPB; Infused Over: 60 mins; Site: right pf1 upper arm; 07:12 Drug: Insulin Regular Human IVP 10 units {Co-Signature: bp (Henok Pinto RN).} Route: pf1 IVP; Site: right upper arm; Disposition Summary: 03/22/23 03:45 Hospitalization Ordered Hospitalization Status: Inpatient Admission rt Provider: Jasbir Hinds rt Location: Telemetry/MedSurg (Inpatient) rt Condition: Fair rt Problem: new rt Symptoms: have improved rt Bed/Room Type: Standard rt Room Assignment: 431(03/22/23 04:56) cg Diagnosis - Altered mental status, unspecified rt - Uremia rt - Hyperkalemia rt Forms: - Medication Reconciliation Form rt - SBAR form rt Critical care time excluding procedures: 03:54 Critical care time: Bedside Care: 30 minutes, Consultation: 5 minutes. Total time: 35 rt minutes Signatures: Dispatcher [employer] Tara Milligan, RN RN cg Radha Tavares RN RN ll3 Pattie Gamble, RN RN aa9 Adrienne Sky PA-C PAGerman [email or web address] Jordan Lemus MD MD rt Meg Navas RN RN pf1 Henok Pinto RN bp Corrections: (The following items were deleted from the chart) 04:56 03:45 rt cg
--- NOTE | 2023-03-22 03:46 | ER ---
Nurse's Notes [facility] Name: Alex Cagle Age: 62 yrs Sex: Male : 1960 Arrival Date: 03/22/2023 Time: 01: Bed 2 Private MD: Diagnosis: Altered mental status, unspecified;Uremia;Hyperkalemia Presentation: 03/22 01:25 Chief complaint: EMS states: Toned out for 62 YO male found unresponsive by , upon ll3 arrival EMS states pt was breathing and not able to wake up, EMS states they administered 2 MG of Narcan and the pt became more responsive. Ebola Screen: No symptoms or risks identified at this time. Initial Sepsis Screen: Does the patient meet any 2 criteria? Altered Mental Status. Yes Does the patient have a suspected source of infection? No. Patient's initial sepsis screen is negative. Risk Assessment: Do you want to hurt yourself or someone else? Patient reports no desire to harm self or others. Onset of symptoms was March 22, 2023. Care prior to arrival: Medication(s) given: Narcan 2 MG IV initiated. 20 GA, in the right antecubital area, Glucose check: 90. Activity prior to arrival: unresponsive. 01:25 Method Of Arrival: EMS: [facility] 01:25 Acuity: DEJAN 2 ll3 Triage Assessment: 01:32 General: Appears in no apparent distress. Behavior is cooperative, drowsy. Pain: 3 Complains of pain in umbilical area Pain does not radiate. Neuro: Linder Agitation-Sedation Scale (RASS): -1 Drowsy Level of Consciousness is obeys commands, lethargic, Oriented to person. Neuro: Pupils are pinpoint. Cardiovascular: Patient's skin is warm and dry. Rhythm is sinus rhythm. Respiratory: Respiratory effort is even, unlabored, Respiratory pattern is regular, symmetrical. Derm: Skin is clammy. Historical: - Allergies: 01:32 NKA; ll3 - Home Meds: :32 Velphoro 500 mg oral tablet,chewable [Active]; amlodipine-benazepril 10-20 mg Oral cap ll3 three times a day [Active]; - PMHx: 01:32 CHF; Diabetes - NIDDM; ESRD; Hypertension; insomnia; ll3 - PSHx: 01:32 bilateral knee repairs; R shoulder; ll3 - Immunization history:: Adult Immunizations unknown. - Social history:: Smoking status: unknown. Screenin:22 [facility] ED Fall Risk Assessment (Adult) History of falling in the last 3 months, pf1 including since admission No falls in past 3 months (0 pts) Confusion or Disorientation Yes (5 pts) Intoxicated or Sedated Yes (3 pts) Impaired Gait Yes (1 pt) Mobility Assist Device Used No (0 pt) Altered Elimination No (0 pt) Score/Fall Risk Level 3 or more points = High Risk Oriented to surroundings, Maintained a safe environment, Educated pt \T\ family on fall prevention, incl call for assistance when getting out of bed, Assessed \T\ reinforced patient's understanding of fall precautions, Provided non-skid footwear, Hourly rounding (assess needs \T\ fall precautionary measures) done, Used ambulatory aids as needed (educated on \T\ assisted with), Used gait belt as appropriate Implemented a Fall Risk Plan of Care, Apply high fall risk patient identification: yellow non skid footwear/ fall signage, Remained w/in arm's length of patient and in sight while toileting, Offered frequent toileting (1:1 observation), Remained with patient while ambulating, Utilized family, sitter, or virtual manager basketball as indicated. Abuse screen: Denies threats or abuse. Nutritional screening: No deficits noted. Tuberculosis screening: No symptoms or risk factors identified. Assessment: 01:32 General: See triage assessment. ll3 03:30 Reassessment: Patient appears in no apparent distress at this time. Patient and/or pf1 family updated on plan of care and expected duration. Pain level reassessed. Patient is alert, oriented x 3, equal unlabored respirations, skin warm/dry/pink. Patient states symptoms have improved. 05:02 Reassessment: Patient appears in no apparent distress at this time. Patient and/or aa9 family updated on plan of care and expected duration. Pain level reassessed. Patient is alert, oriented x 3, equal unlabored respirations, skin warm/dry/pink. Patient states symptoms have improved. Vital Signs: 01:25 BP 127 / 64; Pulse 83; Resp 20; Temp 97.5(TE); Pulse Ox 97% on 2 lpm NC; ll3 03:10 BP 156 / 70; Pulse 68; Resp 11 S; Pulse Ox 100% 2 lpm ; as7 03:45 BP 147 / 95; Pulse 65; Resp 19; Pulse Ox 100% on 2 lpm NC; Pain 0/10; pf1 05:02 BP 120 / 83; Pulse 68; Resp 16 S; Temp 98.5(O); Pulse Ox 99% on 2 lpm NC; aa9 06:06 BP 146 / 84; Pulse 65; Resp 18; Pulse Ox 98% on R/A; Pain 0/10; pf1 03:45 Pain Scale: Adult pf1 06:06 Pain Scale: Adult pf1 ED Course: 01:25 Patient arrived in ED. ll3 01:25 Maintain EMS IV. Dressing intact. Good blood return noted. Site clean \T\ dry. Gauge \T\ pf 1 site: 20gauge RAC. 01:30 Jordan Lemus MD is Attending Physician. rt 01:32 Triage completed. ll3 01:32 Arm band placed on Patient placed in an exam room, on a stretcher, on residential monitor, ll3 on pulse oximetry. 01:35 Patient has correct armband on for positive identification. Bed in low position. Call pf1 light in reach. Side rails up X2. 01:58 Chest Single View XRAY In Process Unspecified. EDMS 02:33 CT Head Brain wo Cont In Process Unspecified. EDMS 03:45 Jasbir Hinds is Hospitalizing Provider. rt 05:00 IV discontinued, intact, bleeding controlled, Pressure dressing applied, 20 gauge EMS pf1 IV removed, due to infiltration. 05:02 No provider procedures requiring assistance completed. aa9 05:20 Missed attempt(s): 22 gauge forearm. pf1 05:40 Missed attempt(s): 20 gauge in right upper arm. pf1 06:00 IV discontinued, intact, bleeding controlled, No redness/swelling at site. Pressure pf1 dressing applied, 20 gauge IV RAC accidently removed when patient moved arm. 06:40 Inserted saline lock: 22 gauge in right ,using aseptic technique. shoulder. pf1 Administered Medications: 04:45 Drug: D10 in Water IVP 250 ml Route: IVP; Site: right antecubital; pf1 05:06 Follow up: Response: No adverse reaction; Marked relief of symptoms pf1 05:06 Drug: Albuterol Inhalation 2.5 mg Route: Inhalation; pf1 06:02 Follow up: Response: No adverse reaction; Marked relief of symptoms pf1 07:00 Drug: Calcium Gluconate IVPB 1 grams Route: IVPB; Infused Over: 60 mins; Site: right pf1 upper arm; 07:12 Drug: Insulin Regular Human IVP 10 units {Co-Signature: bp (Henok Pinto RN).} Route: pf1 IVP; Site: right upper arm; Medication: 05:02 VIS not applicable for this client. aa9 Outcome: 03:45 Decision to Hospitalize by Provider. rt 05:35 Admitted to Tele accompanied by tech, via stretcher, room 431, with chart, Report aa9 called to Rose Marie SAAB 05:35 Condition: stable 05:35 Instructed on the need for admit. 06:50 Patient left the ED. aa9 Signatures: Dispatcher [employer] Radha Andrea RN RN ll3 Pattie Gamble RN RN aa9 Jordan Lemus MD MD rt Meg Navas RN RN pf1 Simona Burton 7 Henok Pinto RN bp Corrections: (The following items were deleted from the chart) 01:46 01:35 General: See triage assessment. ll3 ll3 05:05 01:30 Inserted saline lock: 20 gauge in right antecubital area, using aseptic pf1 technique. Blood collected. pf1 06:03 05:00 IV discontinued, intact, bleeding controlled, Pressure dressing applied, pf1 pf1
[2023-03-22] MEDS ORDERED: ALBUTEROL 2.5 MG/3 ML NEB SOL ONE (04:46)
[2023-03-22] MEDS ORDERED: INSULIN -REGULAR HUMAN 50 UNIT/0.5 ML ML ONE ×2 (04:49→04:51)
--- NOTE | 2023-03-22 04:49 | P.HP ---
Certification for Inpatient Patient admitted to: Inpatient With expected LOS: >2 Midnights Patient will require the following post-hospital care: None Practitioner: I am a practitioner with admitting privileges, knowledge of patient current condition, hospital course, and medical plan of care. Services: Services provided to patient in accordance with Admission requirements found in Title 42 Section 412.3 of the Code of Federal Regulations Patient History Date of Service: 03/22/23 Primary Care Provider: Lorrie Reason for admission: ESRD, Hyperkalemia, AMS History of Present Illness: Mr. Cagle is a a 62-year-old male with past medical history of ESRD on HD MWF, CHF, and hypertension who presented to the emergency department via EMS with decreased responsiveness. states that patient took his prescribed medications, tylenol 4 and ambien, tonight and later she could not wake him up. EMS administered narcan and he became more responsive. When I spoke with him later, he states that he was last dialyzed on Monday. He did not have dialysis on Monday because his dialysis fistula was malfunctioning and he had to have it repaired (which he states was done successfully). He states he did not take any extra medication this evening, was not trying to harm himself by any means. His labs are significant for sodium 127, potassium 6, chloride 93, CO2 15, BUN 95, creatinine 15. ABG demonstrated metabolic acidosis. Head CT negative. Chest xray showed "Mildly prominent interstitial and vascular markings. Peribronchial thickening. No consolidation." Hyperkalemia cocktail given in ED. Will admit for further evaluation and management of AMS, hyperkalemia. Allergies No Known Allergies Allergy (Verified 01/01/21 21:09) Home medications list reviewed: Yes Home Medications: Folic Acid/Vit B Complex and C [Fauzia-Conor Tablet] 1 tab PO DAILY 04/08/22 Sucroferric Oxyhydroxide [Velphoro] 500 mg PO TIDWMHS 04/08/22 Bumetanide 1 tab PO DAILY 11/02/22 Hydralazine [Apresoline*] 25 mg PO TID #90 tab 11/02/22 Sevelamer Carbonate [Renvela*] 800 mg PO TIDWM #90 tab 11/02/22 carvediloL [Coreg*] 3.125 mg PO BID 6AM 6PM #30 tab 11/02/22 Epoetin [Retacrit] 4,000 unit IV EVERY HD vial 12/02/22 Mupirocin Oint [Bactroban 2% Ointment*] 1 appl TOP BID #1 tube 12/02/22 Nepro Shake [Nepro*] 237 ml PO BID #30 can 12/02/22 Warfarin Sodium 10 mg PO DAILY #15 tab 12/02/22 - Past Medical/Surgical History Diabetic: Yes -: End-stage renal disease on hemodialysis -: Hypertension -: Non-Insulin Dependent Type 2 Diabetes -: Chronic IJ blood clot -: Peritoneal dialysis port -: shoulder surgery Psychosocial/ Personal History: Patient with 5 children. - Family History Father -: Heart disease - Social History Smoking Status: Never smoker Alcohol use: No CD- Drugs: No Caffeine use: No Place of Residence: Home Review of Systems 10-point ROS is otherwise unremarkable Cardiovascular: Edema Physical Examination - Vital Signs Temperature: 97.5 F Blood Pressure: 147/95 Pulse: 65 Respirations: 19 Pulse Ox (%): 100 (2L NC) - Physical Exam General: Alert, In no apparent distress, Obese HEENT: Atraumatic, Other (periorbital edema), EOMI, Sclerae nonicteric Neck: Supple, 2+ carotid pulse no bruit Respiratory: Clear to auscultation bilaterally, Normal air movement Cardiovascular: Regular rate/rhythm, Normal S1 S2 Gastrointestinal: Normal bowel sounds, No tenderness Musculoskeletal: No tenderness Integumentary: No rashes Neurological: Normal speech, Normal affect - Studies Laboratory Data (last 24 hrs) 03/22/23 01:55: PT 10.4, INR 0.95, APTT 36.1 03/22/23 01:55: WBC 13.10 H, Hgb 10.0 L, Hct 31.2 L, Plt Count 233 03/22/23 01:55: Sodium 127 L, Potassium 6.0 H, BUN 95 H, Creatinine 15.60 H, Glucose 105, Total Bilirubin 0.3, AST 42 H, ALT 35, Alkaline Phosphatase 128 H Assessment and Plan - Problems (Diagnosis) (1) Acute metabolic encephalopathy Current Visit: Yes Status: Acute (2) End stage renal disease Current Visit: Yes Status: Chronic (3) Hyperkalemia Current Visit: Yes Status: Acute (4) Anemia in chronic kidney disease (CKD) Current Visit: Yes Status: Chronic Qualifiers: Chronic kidney disease stage: on chronic dialysis Qualified Code(s): N18.6 - End stage renal disease; D63.1 - Anemia in chronic kidney disease; Z99.2 - Dependence on renal dialysis (5) CHF (congestive heart failure) Current Visit: Yes Status: Chronic Qualifiers: Heart failure type: diastolic Heart failure chronicity: chronic Qualified Code(s): I50.32 - Chronic diastolic (congestive) heart failure (6) Diabetes mellitus Current Visit: Yes Status: Chronic Qualifiers: Diabetes mellitus type: type 2 Diabetes mellitus superintendent container terminal insulin use: without superintendent container terminal use Diabetes mellitus complication status: with kidney complications Diabetes mellitus complication detail: with chronic kidney disea se Chronic kidney disease stage: on chronic dialysis Qualified Code(s): E11.22 - Type 2 diabetes mellitus with diabetic chronic kidney disease; N18.6 - End stage renal disease; Z99.2 - Dependence on renal dialysis (7) HTN (hypertension) Current Visit: Yes Status: Chronic Qualifiers: Hypertension type: primary hypertension Qualified Code(s): I10 - Essential (primary) hypertension - Plan Patient is admitted for further management of hyperkalemia, acute metabolic encephalopathy. Encephalopathy multifactorial due to polypharmacy and hyperkalemia. Has improved, almost resolved, after narcan. Still groggy but answering questions appropriately. STEAM PAN SPONGER shows active tylenol 4, valium, and ambien prescriptions. Nephrology consulted. He has not had HD since Monday due to fistula complications which he reports are now resolved. Potassium is 6. No EKG changes. Received hyperkalemia cocktail in ED. Monitor on telemetry. Glucose and blood pressure control. Reconcile and continue home medications. Heparin for VTE prophylaxis. Full code. Discharge Plan: Home Plan to discharge in: Greater than 2 days - Advance Directives Does patient have a Living Will: No Does patient have a Durable POA for Healthcare: No - Code Status/Comfort Care Code Status Assessed: Yes Code Status: Full Code Physician Review: Patient Assessed, Agree with Above Assessment and Plan Critical Care: No Time Spent Managing Pts Care (In Minutes): 50
[2023-03-22] MEDS ORDERED: CALCIUM GLUCONATE 1 GM IVPB 1 GM/50 ML BAG IV ONE (04:51)
[2023-03-22] MEDS ORDERED: D10W 250 ML IV ONE (04:52)
[2023-03-22] MEDS: INSULIN -REGULAR HUMAN 50 UNIT/0.5 ML ML SQ SCH ×4 (07:30→21:00)
[2023-03-22 08:04] VITALS: BMI 34.9
[2023-03-22] MEDS: HEPARIN 5000 UNIT/ML 1 ML VIAL SQ SCH ×2 (08:12→23:28)
--- NOTE | 2023-03-22 08:18 | EKG ---
Test Date: 2023-03-22 Test Time: 01:28:29 Fur Remodeler: MEASUREMENT RESULTS: Intervals: Rate: 79 MN: 198 QRSD: 98 QT: 404 QTc: 463 [place]: P: 54 MN: 198 QRS: 83 T: 56 INTERPRETIVE STATEMENTS: Normal sinus rhythm Nonspecific ST abnormality Abnormal ECG Compared to ECG 11/26/2022 03:05:59 ST (T wave) deviation now present Sinus tachycardia no longer present Right-axis deviation no longer present Myocardial infarct finding no longer present Electronically Signed On 03-22-23 08:17:20 CDT by Deon Lawton
--- NOTE | 2023-03-22 11:34 | CON ---
Date of Consultation: 03/22/2023 Reason For Consultation: Hyperkalemia, drug over dose, end-stage renal disease. History Of Present Illness: This is a 62-year-old gentleman, well known to me from the dialysis with significant past medical history of end-stage renal disease on hemodialysis Monday, Monday, y, hypertension, hyperlipidemia, chronic pain syndrome, the patient was in his regular state of healt h. The patient apparently missed dialysis, last dialysis was Monday. The patient also was brought t o the hospital because of altered mental status by EMS, responds to Narcan. Apparently, the patient was taking Tylenol No.3 and Ambien. According to the family from dialysis center social worker school, the patient apparently usually takes his medication from his PCP and consumes all his pain medication in the first week of month, not following instruction of the physician. The patient did not admit the o verdose. According to him, it was by mistake. Past Medical History: Includes; 1.Diabetes. 2.Hypertension. 3.End-stage renal disease, on hemodialysis, Monday, Monday, Monday, last dialysis Monday. Past Surgical History: Includes; 1.PermCath placement. 2.PD catheter placement and removal. 3.Shoulder surgery. Family History: Positive for CAD and hypertension. Social History: Ex-smoker. Occasional alcohol. Denied drugs abuse. Review of Systems: Head and Neck: No red eye. No ear pain. GI: No nausea. No vomiting. : No polyuria. No dysuria. No hematuria. Warp Knitting Machine Operator: Not applicable. Respiratory: No shortness of breath. Cardiovascular: No chest pain. Endocrine: No polydipsia. Skin: No rash. Neuro: Has altered mental status. Musculoskeletal: Has low back pain. Physical Examination: General: When I saw the patient; the patient lying in bed, sleepy, woke up with voice. Vital Signs: Blood pressure 105/48, pulse of 70, afebrile. Chest: Crackles bilateral. Heart: S1, S2. Systolic murmur. Abdomen: Soft, nontender. Extremities: +1 edema. Neuro: Sleepy. No focality. Laboratory Data: WBC 13.1, H and H 10/31.2. Sodium 127, potassium 6, bicarb 15, BUN 95, creatinine 15, calcium 8.3. Chest x-ray; cardiomegaly with congestion. Current Medications: The patient on include heparin, insulin, Narcan p.r.n. Assessment And Plan: 1.End-stage renal disease, missed his dialysis with over volume, hyperkalemia, and acidosis and over dose. I am going to go ahead and arrange for daily dialysis. We will dialyze the patient today and tomorrow. Then, we will put him back to his schedule Monday to establish better volume control and m ore clearance for his over dose and we will monitor the patient. 2.Hypertension, currently blood pressure on the lower side. We will utilize blood pressure for more ultrafiltration. 3.Acidosis, high anion gap metabolic acidosis secondary to renal failure, going to be corrected with dialysis. 4.Hyponatremia secondary to dilutional, will be corrected with dialysis. 5.Hyperkalemia. The patient is going to be dialyzed on low potassium bath. 6.Overdose secondary to Ambien and Tylenol No.3, currently more awake. No need for antidote. We wi ll dialyze the patient on daily basis. 7.Over volume. The patient is going to be challenged today. 8.Hypertension, currently blood pressure on the lower side. We will hold all blood pressure medicat ions. Dialysis is going to be on sodium bath to establish better blood pressure for ultrafiltration. Time spent examining the patient [id number], reviewing data, lab and radiology, discussing the case with the pulp mill team leader including charge nurse on the floor and hospitalist more than 35 minutes. RENAE Voice ID: [id number] Report ID: [id number]
--- NOTE | 2023-03-22 11:37 | RAD REPORT ---
EXAM DESCRIPTION: RAD - Chest Single View - 03/22/2023 1:56 am CLINICAL HISTORY: The patient is 62 years old and is Male; ams TECHNIQUE: Frontal view of the chest. COMPARISON: No relevant prior studies available. FINDINGS: Lungs: Mildly prominent interstitial and vascular markings. Peribronchial thickening. No consolidation. Pleural space: Unremarkable. No pneumothorax. Heart: Unremarkable. Mediastinum: Unremarkable. Bones/joints: Unremarkable. Upper abdomen: Elevation of the right hemidiaphragm. IMPRESSION: Mildly prominent interstitial and vascular markings. Peribronchial thickening. No consol idation. Electronically signed by: Akil Yanez MD 03/22/2023 2:50 AM CDT Due to temporary technical issues with the PACS/Fluency reporting system, reports are being signed by the in house radiologist without review as a courtesy to ensure prompt reporting. The interpreting r adiologist is fully responsible for the content of the report.
--- NOTE | 2023-03-22 12:22 | RAD REPORT ---
EXAM DESCRIPTION: CT - Head Brain Wo Cont - 03/22/2023 6:51 am CLINICAL HISTORY: The patient is 62 years old and is Male; ams TECHNIQUE: Axial computed tomography images of the head/brain without intravenous contrast. Sagitt al and coronal reformatted images were created and reviewed. This CT exam was performed using one o r more of the following dose reduction techniques: automated exposure control, adjustment of the mA and/or kV according to patient size, and/or use of iterative reconstruction technique. COMPARISON: No relevant prior studies available. FINDINGS: Brain: Remote lacunar infarct involving the left basal ganglia. Mild nonspecific white matter changes likely related to chronic microvascular ischemic diseas e. Mild cerebral atrophy. No hemorrhage. Ventricles: Unremarkable. No ventriculomegaly. Bones/joints: Unremarkable. No acute fracture. Soft tissues: Left posterior scalp swelling. Sinuses: Right maxillary sinus mucosal thickening. Ethmoid sinus mucosal thickening. Mastoid air cells: Partial opacification of the left mastoid air cells. IMPRESSION: No acute intracranial abnormality. Electronically signed by: Akil Yanez MD 03/22/2023 2:54 AM CDT Due to temporary technical issues with the PACS/Fluency reporting system, reports are being signed by the in house radiologist without review as a courtesy to ensure prompt reporting. The interpreting r adiologist is fully responsible for the content of the report.
--- NOTE | 2023-03-22 15:57 | P.PN ---
Date of Service: 03/22/23 Patient seen and examined. Patient is awake and alert. Noted facial edema. He has no new complain. He was hypoglycemic this morning but blood sugar readings have improved. He ate his breakfast and lunch. Diagnosis; Acute metabolic encephalopathy Hypoglycemia End-stage renal disease on hemodialysis Hyperkalemia Plan: Nephrology input appreciated. AMS resolved. Patient is planned for hemodialysis today. Blood sugar readings have improved. Noted patient was given insulin for hyperglycemia treatment in the ED. Continue to monitor blood sugar Hypoglycemia protocol. Hold psychotropic medications. Hold opioids
[2023-03-22 16:20] LABS: Hepatitis B surface AG Interp. Nonreactive (Nonreactive)
[2023-03-23] MEDS: ACETAMINOPHEN 325 MG TABLET PO PRN ×2 (05:35→21:14)
[2023-03-23 06:37] LABS: Absolute Lymphocytes (CBC) 0.8 K/uL (0.7-4.9); Lymphocytes % 17.4 % (15.3-44.8); MCV 89.7 fL (80-100); MPV 7.1 fL (7.6-11.3); RBC Red Blood Cell Count 3.12 M/uL (4.33-5.43)
[2023-03-23 06:49] LABS: Magnesium 2.4 mg/dL (1.6-2.4); Phosphorus 7.1 mg/dL (2.5-4.9); Potassium 4.3 mEq/L (3.5-5.1)
[2023-03-23] MEDS: INSULIN -REGULAR HUMAN 50 UNIT/0.5 ML ML SQ SCH ×4 (07:30→21:00)
[2023-03-23] MEDS: HEPARIN 5000 UNIT/ML 1 ML VIAL SQ SCH ×2 (08:06→21:18)
[2023-03-23] MEDS ORDERED: EPOETIN ALFA 10,000 UNIT/ML VIAL IV SCH (09:15)
[2023-03-23] MEDS: SEVELAMER CARBONATE 800 MG TABLET PO SCH ×2 (12:17→16:52)
--- NOTE | 2023-03-23 13:56 | PN ---
Date of Progress Note: 03/23/2023 Subjective: The patient doing better, more awake today. The patient is status post dialysis yesterd ay. We managed to remove 3 L. Physical Examination: Vital Signs: Blood pressure 158/74, pulse 81, afebrile. Chest: Crackles bilateral base. Heart: S1, S2. Regular. Systolic murmur. Abdomen: Soft, nontender. Extremities: Plus edema. Neuro: Alert. No focality. More awake, oriented x3. Laboratory Data: Hemoglobin 9.3. Sodium 130, potassium 4.3, bicarb 24, BUN 48, creatinine 10, calci um 8.5, phosphorus 7.1, magnesium 2.4. Current Medications: The patient on include Tylenol, insulin. Assessment And Plan: 1.End-stage renal disease, over volume and overdose. I am going to arrange for another session of d ialysis today and we will monitor the patient. We will challenge the patient for fluid removal and w e will follow up. 2.Hypertension. Yesterday, was hypotension, currently controlled. Keep holding blood pressure medi cation. We will utilize blood pressure for ultrafiltration. 3.Hyponatremia, will be corrected with dialysis. Today, number is better. 4.Secondary hyperparathyroidism. I am going to start the patient on Renvela and we will follow up r lisa. 5.Anemia of chronic kidney disease. Resume HASEEB. 6.Overdose. The patient recovered. We will follow up with primary. Cleared from the Renal standpoint. Will be discharged after dialysis. RENAE Voice ID: [id number] Report ID: [id number]
--- NOTE | 2023-03-23 18:09 | P.PN ---
Subjective Date of Service: 03/23/23 Primary Care Provider: Lorrie Chief Complaint: ESRD, Hyperkalemia, AMS Patient states he feels better than yesterday though he still feels swollen. Mental status has improved and he is currently at baseline. Status post hemodialysis yesterday. He states that he underwent angiogram/angioplasty to fix his left AV fistula in an outside facility recently. Physical Examination - Vital Signs Temperature: 99.2 F Blood Pressure: 153/77 Pulse: 76 Respirations: 16 Pulse Ox (%): 90 Assessment And Plan - Current Problems (Diagnosis) (1) Hyperkalemia Current Visit: Yes Status: Acute (2) Diabetes mellitus Current Visit: Yes Status: Chronic Qualifiers: Diabetes mellitus type: type 2 Diabetes mellitus intermediate insulin use: without intermediate use Diabetes mellitus complication status: with kidney complications Diabetes mellitus complication detail: with chronic kidney disease Chronic kidney disease stage: on chronic dialysis Qualified Code(s): E11.22 - Type 2 diabetes mellitus with diabetic chronic kidney disease; N18.6 - End stage renal disease; Z99.2 - Dependence on renal dialysis (3) End stage renal disease Current Visit: Yes Status: Chronic (4) HTN (hypertension) Current Visit: Yes Status: Chronic Qualifiers: Hypertension type: primary hypertension Qualified Code(s): I10 - Essential (primary) hypertension (5) Acute metabolic encephalopathy Current Visit: Yes Status: Acute (6) Anemia in chronic kidney disease (CKD) Current Visit: Yes Status: Chronic Qualifiers: Chronic kidney disease stage: on chronic dialysis Qualified Code(s): N18.6 - End stage renal disease; D63.1 - Anemia in chronic kidney disease; Z99.2 - Dependence on renal dialysis - Plan Physical Exam General: Alert, In no apparent distress, Obese HEENT: Facial edema. Neck: Supple, no elevated JVD. Respiratory: Clear to auscultation bilaterally, Normal air movement Cardiovascular: Regular rate/rhythm, Normal S1 S2 Gastrointestinal: Normal bowel sounds, No tenderness Musculoskeletal: No tenderness Integumentary: No rashes Neurological: Normal speech, Normal affect. Plan: Hyperkalemia resolved after hemodialysis. Nephrology is following and patient planned for consecutive hemodialysis. Anasarca is improving. I suspect AMS secondary to polypharmacy. AMS resolved. No more hypoglycemia episode. Resume home antihypertensives. Insulin sliding scale for glucose management.
[2023-03-23] MEDS ORDERED: HOME MED 1 EA UNK (Sucroferric Oxyhydroxide [Velphoro] 500 MG Tab.Chew) PO SCH (21:00)
[2023-03-23 22:53] VITALS: O2SAT 94
[2023-03-24 04:43] LABS: Albumin 3.5 g/dL (3.4-5.0); Phosphorus 5.8 mg/dL (2.5-4.9); Potassium 4.1 mEq/L (3.5-5.1)
[2023-03-24] MEDS: INSULIN -REGULAR HUMAN 50 UNIT/0.5 ML ML SQ SCH ×2 (07:30→11:30)
[2023-03-24] MEDS: HEPARIN 5000 UNIT/ML 1 ML VIAL SQ SCH (08:13)
[2023-03-24] MEDS: SEVELAMER CARBONATE 800 MG TABLET PO SCH ×2 (08:13→12:30)
[2023-03-24] MEDS ORDERED: lisinopriL 20 MG TAB PO SCH (09:00)
[2023-03-24] MEDS ORDERED: MULTIVITAMINS,THERAPEUT 1 TAB PO SCH (09:00)
[2023-03-24] MEDS ORDERED: HOME MED 1 EA UNK (Folic Acid/Vit B Complex And C [Rena-Vite Tablet] 0.8 MG Tablet) PO SCH (09:00)
[2023-03-24 12:39] VITALS: TEMP 99.9
[2023-03-24 12:43] VITALS: BP 158/74
--- NOTE | 2023-03-24 13:30 | P.DS ---
Admission Date: 03/22/23 Discharge Date: 03/24/23 Primary Care Provider: Lorrie Disposition: ROUTINE DISCHARGE Discharge Condition: FAIR Reason for Admission: ESRD, Hyperkalemia, AMS - Problems (1) Hyperkalemia Current Visit: Yes Status: Acute (2) Diabetes mellitus Current Visit: Yes Status: Chronic Qualifiers: Diabetes mellitus type: type 2 Diabetes mellitus director long term care insulin use: without care home use Diabetes mellitus complication status: with kidney complications Diabetes mellitus complication detail: with chronic kidney disease Chronic kidney disease stage: on chronic dialysis Qualified Code(s): E11.22 - Type 2 diabetes mellitus with diabetic chronic kidney disease; N18.6 - End stage renal disease; Z99.2 - Dependence on renal dialysis (3) End stage renal disease Current Visit: Yes Status: Chronic (4) HTN (hypertension) Current Visit: Yes Status: Chronic Qualifiers: Hypertension type: primary hypertension Qualified Code(s): I10 - Essential (primary) hypertension (5) Acute metabolic encephalopathy Current Visit: Yes Status: Acute (6) Anemia in chronic kidney disease (CKD) Current Visit: Yes Status: Chronic Qualifiers: Chronic kidney disease stage: on chronic dialysis Qualified Code(s): N18.6 - End stage renal disease; D63.1 - Anemia in chronic kidney disease; Z99.2 - Dependence on renal dialysis Brief History of Present Illness: Mr. Cagle is a a 62-year-old male with past medical history of ESRD on HD MWF, CHF, and hypertension who presented to the emergency department via EMS with decreased responsiveness. states that patient took his prescribed medications, tylenol 4 and ambien, and later she could not wake him up. EMS administered narcan and he became more responsive. When I spoke with him later, he states that he was last dialyzed on Monday. He did not have dialysis on Monday because his dialysis fistula was malfunctioning and he had to have it repaired.. He stated he did not take any extra medication and was not trying to harm himself by any means. His labs are significant for sodium 127, potassium 6, chloride 93, CO2 15, BUN 95, creatinine 15. ABG demonstrated metabolic acidosis. Head CT negative. Chest xray showed "Mildly prominent interstitial and vascular markings. Peribronchial thickening. No consolidation." Hyperkalemia cocktail given in ED. patient admitted for further evaluation and management of AMS, hyperkalemia. Hospital Course: Patient was treated for hyperkalemia medically with insulin, D10 infusion. He d eveloped an episode of hypoglycemia which resolved with diet. He was seen in consultation by nephrology and patient underwent hemodialysis Hyperkalemia resolved after hemodialysis. Patient had anasarca which is improved after dialysis. I suspect AMS secondary to polypharmacy. AMS resolved. No more hypoglycemia episode. Patient's symptoms is clinically improved. He is alert and oriented with stable vitals. Okay to discharge per nephrology. Vital Signs/Physical Exam: Temp Pulse Resp BP Pulse Ox 99.9 F 77 16 158/74 H 96 03/24/23 12:00 03/24/23 12:00 03/24/23 12:00 03/24/23 12:43 03/24/23 12:00 General: Alert, In no apparent distress, Oriented x3 HEENT: Mucous membr. moist/pink Neck: JVD not distended Respiratory: Clear to auscultation bilaterally, Normal air movement Cardiovascular: No edema, Normal S1 S2 Gastrointestinal: Soft and benign, Non-distended Musculoskeletal: No tenderness Integumentary: No rashes, No cyanosis Neurological: Normal strength at 5/5 x4 extr Laboratory Data at Discharge: WBC 4.80 thou/uL (4.3-10.9) 03/23/23 06:09 Hgb 9.3 g/dL (13.6-17.9) L 03/23/23 06:09 Hct 28.0 % (39.6-49.0) L 03/23/23 06:09 Plt Count 168 thou/uL (152-406) 03/23/23 06:09 PT 10.4 SECONDS (9.5-12.5) 03/22/23 01:55 INR 0.95 03/22/23 01:55 APTT 36.1 SECONDS (24.3-36.9) 03/22/23 01:55 Sodium 129 mEq/L (136-145) L 03/24/23 03:23 Potassium 4.1 mEq/L (3.5-5.1) 03/24/23 03:23 BUN 38 mg/dL (7-18) H 03/24/23 03:23 Creatinine 7.80 mg/dL (0.70-1.30) H 03/24/23 03:23 Glucose 97 mg/dL (74-106) 03/24/23 03:23 Phosphorus 5.8 mg/dL (2.5-4.9) H 03/24/23 03:23 Magnesium 2.4 mg/dL (1.6-2.4) 03/23/23 06:09 Total Bilirubin 0.3 mg/dL (0.2-1.0) 03/22/23 01:55 AST 42 U/L (15-37) H 03/22/23 01:55 ALT 35 U/L (16-61) 03/22/23 01:55 Alkaline Phosphatase 128 U/L (45-117) H 03/22/23 01:55 Home Medications: Folic Acid/Vit B Complex and C [Fauzia-Conor Tablet] 1 tab PO DAILY 04/08/22 Sucroferric Oxyhydroxide [Velphoro] 500 mg PO TIDWMHS 04/08/22 Bumetanide 1 tab PO DAILY 11/02/22 Lisinopril [Zestril] 20 mg PO DAILY 03/22/23 Oxybutynin Chloride [Ditropan Xl] 5 mg PO DAILY 03/22/23 Epoetin [Retacrit] 10,000 unit IV EVERY HD vial 03/24/23 Diet: Renal Activity: Ad adina Followup: Constantin Ellison MD [ACTIVE - CAN ADMIT] - 1-2 Weeks Time spent managing pt's care (in minutes): 36
== END 2023-03-24 15:20 | disposition home or self-care (01) | DRG 917 ==
LOC: ER 01:22 → 4TH 04:45
PROVIDERS: ADMIT Internal Medicine; ATTEND Internal Medicine
DX: T39.1X1A Poisoning by 4-Aminophenol derivatives, accidental (unintentional), initial encounter (principal); G93.41 Metabolic encephalopathy; N18.6 End stage renal disease; I50.32 Chronic diastolic (congestive) heart failure; I13.2 Hypertensive heart and chronic kidney disease with heart failure and with stage 5 chronic kidney disease, or end stage renal disease; E87.20 Acidosis, unspecified; E87.1 Hypo-osmolality and hyponatremia; N25.81 Secondary hyperparathyroidism of renal origin; E11.22 Type 2 diabetes mellitus with diabetic chronic kidney disease; D63.1 Anemia in chronic kidney disease; G89.4 Chronic pain syndrome; E87.5 Hyperkalemia; T42.6X1A Poisoning by other antiepileptic and sedative-hypnotic drugs, accidental (unintentional), initial encounter; R41.82 Altered mental status, unspecified; Z99.2 Dependence on renal dialysis; Z79.4 Long term (current) use of insulin; Z79.01 Long term (current) use of anticoagulants; Z91.158 Patient's noncompliance with renal dialysis for other reason; Z87.891 Personal history of nicotine dependence; Z79.899 Other long term (current) drug therapy
CPT/HCPCS: 36415; 36600; 70450; 71045; 80048; 80069; 80076; 80143; 80179; 82077; 82947; 83735; 84100; 84484; 85025; 85610; 85730; 87340; 90935; 93005; 96374; 96375; 99285; J0610; J1644; J1815; J7613

== ENCOUNTER 2023-04-23 15:48 | Inpatient (IN) | payer OTHER ==
[2023-04-23 16:44] LABS: Absolute Lymphocytes (CBC) 0.4 K/uL (0.7-4.9); Hematocrit 34.6 % (39.6-49.0); Lymphocytes % 3.9 % (15.3-44.8); MCV 89.5 fL (80-100); MPV 7.1 fL (7.6-11.3); RBC Red Blood Cell Count 3.87 M/uL (4.33-5.43)
[2023-04-23 16:45] LABS: Protime INR 1.05
--- NOTE | 2023-04-23 16:56 | RAD REPORT ---
[facility] 4[facility]37 pm CLINICAL HISTORY: Altered mental status COMPARISON: Chest Single View dated 03/22/2023; Chest Single View dated 11/28/2022; Abdomen 1 View ([facility]) dated 11/26/2022; Chest Single View dated 11/26/2022 TECHNIQUE: Portable AP view of the chest. FINDINGS: The lungs are clear. No pneumothorax or effusion. Stable cardiomegaly. Mediastinal contou rs are unremarkable. IMPRESSION: No acute cardiopulmonary process. Stable cardiomegaly.
--- NOTE | 2023-04-23 17:02 | RAD REPORT ---
EXAM DESCRIPTION: CT - Head Brain Wo Cont - 04/23/2023 4:35 pm CLINICAL HISTORY: MENTAL STATUS CHANGE COMPARISON: Head Brain Wo Cont dated 03/22/2023; Head Brain Wo Cont dated 11/24/2022 TECHNIQUE: Noncontrast head CT images were obtained without IV contrast. Multiplanar reformats were generated and reviewed. All CT scans are performed using dose optimization technique as appropriate and may include automated exposure control or mA/KV adjustment according to patient size. FINDINGS: No intracranial hemorrhage, mass, or edema. Midline structures are unremarkable. Normal ventricular caliber for age. Patchy left hemispheric predominant periventricular and deep white matter hypodensities, stable in ex tent, and nonspecific, most suggestive of chronic small vessel ischemic changes. Left subinsular near CSF density focus is stable, and may relate to sequelae of a remote infarct versus prominent perivas cular space. Stone-white matter differentiation is otherwise preserved, without evidence of acute infa rct. No abnormal extra-axial fluid collections. Mastoid air cells show patchy opacification on the left. Mild to moderate inflammatory paranasal sinu s mucosal thickening with trace right maxillary sinus air-fluid level. No acute bony findings. Mild left frontal scalp soft tissue swelling. IMPRESSION: No evidence of an acute intracranial process. Stable chronic findings as above.
[2023-04-23] MEDS ORDERED: NA CHLORIDE 0.9% 1,000 ML ONE (17:04)
[2023-04-23 17:06] LABS: ALT/SGPT 13 U/L (16-61); AST/SGOT 8 U/L (15-37); Alkaline Phosphatase 122 U/L (45-117); BUN Blood Urea Nitrogen 72 mg/dL (7-18); Bicarbonate 22 mEq/L (21-32); Bilirubin Total 0.6 mg/dL (0.2-1.0); Glomerular Filtration Rate 4 ml/min (=/>90); Glucose Level 64 mg/dL (74-106); Potassium 5.9 mEq/L (3.5-5.1); Protein, Total 7.8 g/dL (6.4-8.2); Sodium Level 122 mEq/L (136-145)
[2023-04-23 17:23] LABS: Arterial Blood Carboxyhemoglob 2.1 % (0-1.5); Blood Gas Oxyhemoglobin 89.4 % (94-97); Blood O2 Saturation 92.7 % (92-98.5)
[2023-04-23] MEDS ORDERED: ALBUTEROL 2.5 MG/3 ML NEB SOL ONE (17:28)
[2023-04-23] MEDS ORDERED: LEVALBUTEROL 0.63 MG/3 ML NEB ONE (17:28)
[2023-04-23] MEDS ORDERED: SOD POLYSTYREN SUL 15 GM/60 ML UCUP ONE (17:52)
[2023-04-23] MEDS ORDERED: CALCIUM GLUCONATE 1 GM IVPB 1 GM/50 ML BAG IV ONE (17:53)
[2023-04-23] MEDS ORDERED: D10W 250 ML IV ONE (17:53)
[2023-04-23 17:58] LABS: Potassium 6.6 mEq/L (3.5-5.1)
[2023-04-23] MEDS ORDERED: NA CHLORIDE 3% 500 ML IV SCH ×2 (18:45→19:45)
--- NOTE | 2023-04-23 19:29 | EDPHYS ---
Physician Documentation [facility] Name: Alex Cagle Age: 62 yrs Sex: Male : 1960 Arrival Date: 04/23/2023 Time: 15:48 Bed 18 Private MD: ED Physician Ambrocio Alonso HPI: 04/23 16:05 This 62 yrs old Male presents to ER via EMS with complaints of Altered Mental Status. cp 16:05 The patient presents with confusion, decreased responsiveness. Onset: The cp symptoms/episode began/occurred at an unknown time. Possible causes: history of liver disease and kidney disease. 16:05 Associated signs and symptoms: Pertinent negatives: abdominal pain, chest pain, fever. cp Current symptoms: In the emergency department the patient's symptoms are unchanged from the initial presentation, despite EMS interventions. Patient's baseline: Neuro: alert and fully oriented, Motor: no deficits, Ambulation: walks without assistance, Speech: normal. The patient has experienced similar episodes in the past, a few times. Historical: - Allergies: 16:47 NKA; mb9 - PMHx: 16:47 CHF; Diabetes - NIDDM; ESRD; Hypertension; insomnia; mb9 - PSHx: 16:47 bilateral knee repairs; R shoulder; mb9 - Immunization history:: Adult Immunizations up to date. - Social history:: Smoking status: Patient reports the use of cigarette tobacco products. ROS: 16:10 Constitutional: Positive for poor PO intake, Negative for fever. cp 16:10 ENT: Negative for drainage from ear(s), ear pain, sore throat, difficulty swallowing, cp difficulty handling secretions. 16:10 Cardiovascular: Negative for chest pain. 16:10 Respiratory: Negative for wheezing. 16:10 Abdomen/GI: Negative for abdominal pain. 16:10 Neuro: Positive for altered mental status, Negative for seizure activity. 16:10 All other systems are negative. Exam: 16:15 Constitutional: The patient appears in no acute distress, alert, awake, cp non-diaphoretic, non-toxic, well developed, well nourished. 16:15 Head/Face: Normocephalic, atraumatic. cp 16:15 Eyes: Periorbital structures: appear normal, Pupils: equal, round, and reactive to cp light and accomodation, Conjunctiva: normal, no exudate, no injection, Sclera: no appreciated abnormality, Lids and lashes: appear normal, bilaterally. 16:15 ENT: External ear(s): are unremarkable, Ear canal(s): are normal, clear, TM's: dullness, bilaterally, Nose: is normal, Mouth: Lips: dry, Oral mucosa: dry, Posterior pharynx: is normal, airway is patent, no erythema, no exudate. 16:15 Neck: ROM/movement: is normal, is supple, without pain, no range of motions limitations, no meningismus, no nuchal rigidity. 16:15 Chest/axilla: Inspection: normal, Palpation: is normal, no crepitus, no tenderness. 16:15 Cardiovascular: Rate: normal, Rhythm: regular, Edema: is not appreciated, JVD: is not appreciated. 16:15 Respiratory: the patient does not display signs of respiratory distress, Respirations: cp shallow respirations, that is mild, Breath sounds: decreased breath sounds, that are mild, throughout, stridor, is not appreciated. 16:15 Abdomen/GI: Inspection: abdomen appears normal, Bowel sounds: active, all quadrants, Palpation: abdomen is soft and non-tender, in all quadrants, involuntary guarding, is not appreciated. 16:15 Back: pain, is absent, ROM is normal. cp 16:15 Skin: cellulitis, is not appreciated, no rash present. 16:15 Neuro: Orientation: to person, Mentation: slow to respond, confused, Motor: moves all fours, strength is normal, Sensation: no obvious gross deficits. 16:48 ECG was reviewed by the Attending Physician. cp Vital Signs: 15:56 BP 126 / 48; Pulse 75; Resp 18; Temp 97.9(TE); Pulse Ox 97% on R/A; Weight 97 kg; eh3 Height 5 ft. 10 in. ; 16:49 BP 112 / 55; Pulse 73; Resp 12; Pulse Ox 95% on 3 lpm NC; mb9 18:11 BP 128 / 59; Pulse 69; Resp 18; Pulse Ox 100% on 40 lpm BiPAP; mb9 19:42 BP 111 / 61; Pulse 67; Resp 15 S; Pulse Ox 100% on R/A; ha1 15:56 Body Mass Index 30.68 (97.00 kg, 177.8 cm) eh3 MDM: 15:59 Patient medically screened. 17:00 Differential Diagnosis: electrolyte abnormality, alcohol intoxication, intracranial cp bleed, meningitis, pneumonia, seizure, sepsis, volume depletion. 18:36 ED course: consult with DR Wick who wants NS 3% started at 30 cc/hr and recommends cp daily dialysis. Patient to be admitted to ICU. 18:40 Data reviewed: vital signs, nurses notes, lab test result(s), EKG, radiologic studies, cp CT scan, plain films. 18:40 Care significantly affected by the following chronic conditions: Diabetes, Chronic cp Kidney Disease. 19:30 Management of patient was discussed with the following: Hospitalist: Kandy AMARAL will cp admit patient after discussion. 04/23 15:58 Order name: Blood Culture Adult (2) 04/23 15:58 Order name: CBC with Diff; Complete Time: 17:10 04/23 17:10 Interpretation: Normal except: RBC 3.87; HGB 11.3; HCT 34.6; MPV 7.1; JACOB% 90.7; LYM% cp 3.9; NEUT A 9.9; LYMA 0.4. 04/23 15:58 Order name: CMP; Complete Time: 17:10 04/23 17:11 Interpretation: Normal except: NA 122; K 5.9; CL 89; ANION GAP 16.9; GLUC 64; BUN 72; cp CRE 11.60; GFR 4; AST 8; ALT 13; ALK 122; GLOB 3.8. 04/23 15:58 Order name: Lactate w/ 2H reflex if indic.; Complete Time: 17:10 04/23 18:05 Interpretation: Reviewed. 04/23 15:58 Order name: Protime (+inr); Complete Time: 17:10 04/23 15:58 Order name: Ptt, Activated; Complete Time: 17:10 04/23 15:58 Order name: AMMONIA; Complete Time: 17:10 04/23 15:58 Order name: ETOH Level; Complete Time: 17:10 04/23 15:58 Order name: Acetaminophen; Complete Time: 17:10 04/23 16:52 Order name: ABG; Complete Time: 19:26 04/23 17:12 Order name: BMP: recollect; Complete Time: 18:04 04/23 19:27 Interpretation: Normal except: NA 119; K 6.6; CL 89; GLUC 59; BUN 73; CRE 11.50; GFR 5; cp CA 7.9. 04/23 17:46 Order name: Glucose, Ancillary Testing; Complete Time: 17:57 EDMS 04/23 17:57 Interpretation: Reviewed. cp 04/23 18:34 Order name: Glucose, Ancillary Testing; Complete Time: 19:26 EDMS 04/23 19:26 Interpretation: Reviewed. cp 04/23 19:41 Order name: NT PRO-BNP EDMS 04/23 19:41 Order name: Basic Metabolic Panel EDMS 04/23 19:41 Order name: Basic Metabolic Panel EDMS 04/23 19:41 Order name: Basic Metabolic Panel EDMS 04/23 19:41 Order name: Basic Metabolic Panel EDMS 04/23 19:41 Order name: CBC with Automated Diff EDMS 04/23 19:41 Order name: CBC with Automated Diff EDMS 04/23 19:41 Order name: CBC with Automated Diff EDMS 04/23 19:41 Order name: CBC with Automated Diff EDMS 04/23 19:41 Order name: Magnesium EDMS 04/23 19:41 Order name: Magnesium EDMS 04/23 19:41 Order name: Magnesium EDMS 04/23 19:41 Order name: Magnesium EDMS 04/23 19:42 Order name: Basic Metabolic Panel EDMS 04/23 19:42 Order name: Basic Metabolic Panel EDMS 04/23 19:42 Order name: Basic Metabolic Panel EDMS 04/23 19:42 Order name: Basic Metabolic Panel EDMS 04/23 19:42 Order name: Magnesium EDMS 04/23 19:42 Order name: Magnesium EDMS 04/23 19:42 Order name: Magnesium EDMS 04/23 19:42 Order name: Magnesium EDMS 04/23 15:58 Order name: Chest Single View XRAY; Complete Time: 17:10 cp 04/23 15:58 Order name: CT Head Brain wo Cont; Complete Time: 17:10 cp 04/23 17:57 Order name: BIPAP cp 04/23 15:58 Order name: EKG; Complete Time: 15:59 cp 04/23 19:36 Order name: CONS Physician Consult EDMS 04/23 19:40 Order name: NPO EDMS 04/23 15:58 Order name: Accucheck; Complete Time: 16:53 cp 04/23 15:58 Order name: Cardiac monitoring; Complete Time: 16:04 cp 04/23 15:58 Order name: EKG - Nurse/Tech; Complete Time: 16:53 cp 04/23 15:58 Order name: IV Saline Lock - Large Bore; Complete Time: 16:53 cp 16 15:58 Order name: Labs collected and sent; Complete Time: 16:53 cp 04/23 15:58 Order name: O2 Per Protocol; Complete Time: 16:03 cp 04/23 15:58 Order name: O2 Sat Monitoring; Complete Time: 16:03 cp 04/23 15:58 Order name: Vital Signs; Complete Time: 16:03 cp EC:48 Rate is 71 beats/min. Rhythm is regular. CA interval is normal. QRS interval is cp prolonged at 110 msec. QT interval is normal. T waves are Inverted in lead aVR. Interpreted by me. Reviewed by me. Administered Medications: 16:58 Drug: NS 0.9% IV 250 ml Route: IV; Rate: bolus; Site: right forearm; mb9 20:23 Follow up: Response: No adverse reaction; IV Status: Completed infusion mb9 17:30 Drug: DuoNeb Nebulize (2.5 mg - 0.5 mg) 3 ml Route: Nebulizer; mb9 20:22 Follow up: Response: No adverse reaction mb9 17:38 Not Given (Physician Discretion): D50W IVP 50 ml IVP once; (1 amp) cp 17:49 Drug: Calcium Chloride IVP 1 grams Route: IVP; Site: right antecubital; mb9 20:22 Follow up: Response: No adverse reaction mb9 17:49 Drug: Sodium Bicarbonate IVP 1 amp Route: IVP; Site: right antecubital; mb9 20:23 Follow up: Response: No adverse reaction mb9 17:49 Drug: D10 in Water IVP 250 ml Route: IVP; Site: right antecubital; mb9 20:22 Follow up: Response: No adverse reaction mb9 17:49 Not Given (Risk of aspiration due to Bipap on ptt): Kayexalate PO 30 grams PO once mb9 Disposition Summary: 04/23/23 19:28 Hospitalization Ordered Hospitalization Status: Inpatient Admission cp Provider: Baidoo, Jasbir cp Location: Intensive Care Unit cp Condition: Stable cp Problem: new cp Symptoms: have improved cp Bed/Room Type: Standard cp Room Assignment: 1-(04/23/23 19:39) mw Diagnosis - Altered mental status, unspecified cp - Hypo-osmolality and hyponatremia cp - Hyperkalemia cp Forms: - Medication Reconciliation Form cp - SBAR form cp Signatures: Dispatcher [employer] EDClara Vidales RN RN mw Page, Corey, PA PA cp Breneman, Mary Beth, RN RN mb9 Corrections: (The following items were deleted from the chart) 19:39 19:28 cp mw
--- NOTE | 2023-04-23 19:29 | ER ---
Nurse's Notes [facility] Name: Alex Cagle Age: 62 yrs Sex: Male : 1960 Arrival Date: 04/23/2023 Time: 15:48 Bed 18 Private MD: Diagnosis: Altered mental status, unspecified;Hypo-osmolality and hyponatremia;Hyperkalemia Presentation: 04/23 15:56 Chief complaint: EMS states: family toned out to house for altered mental status and eh3 generalized weakness. Pt receives dialysis M/W/F and has not missed dialysis. EMS reports BGL 98. Coronavirus screen: Vaccine status: Patient reports receiving the 2nd dose of the covid vaccine. Ebola Screen: No symptoms or risks identified at this time. Initial Sepsis Screen: Does the patient meet any 2 criteria? No. Patient's initial sepsis screen is negative. Does the patient have a suspected source of infection? No. Patient's initial sepsis screen is negative. Risk Assessment: Do you want to hurt yourself or someone else? Patient reports no desire to harm self or others. Onset of symptoms was April 23, 2023. 15:56 Method Of Arrival: EMS: [facility] 3 15:56 Acuity: DEJAN 3 eh3 Historical: - Allergies: 16:47 NKA; mb9 - PMHx: 16:47 CHF; Diabetes - NIDDM; ESRD; Hypertension; insomnia; mb9 - PSHx: 16:47 bilateral knee repairs; R shoulder; mb9 - Immunization history:: Adult Immunizations up to date. - Social history:: Smoking status: Patient reports the use of cigarette tobacco products. Screenin:53 [facility] ED Fall Risk Assessment (Adult) History of falling in the last 3 months, mb9 including since admission No falls in past 3 months (0 pts) Confusion or Disorientation Yes (5 pts) Intoxicated or Sedated No (0 pts) Impaired Gait Yes (1 pt) Mobility Assist Device Used No (0 pt) Altered Elimination No (0 pt) Score/Fall Risk Level 3 or more points = High Risk Oriented to surroundings, Maintained a safe environment, Educated pt \T\ family on fall prevention, incl call for assistance when getting out of bed. Abuse screen: Denies threats or abuse. Nutritional screening: No deficits noted. Tuberculosis screening: No symptoms or risk factors identified. Assessment: 16:48 General: Appears unkempt, Behavior is calm. Pain: Denies pain. Neuro: Linder mb9 Agitation-Sedation Scale (RASS): 0 - Alert and Calm Level of Consciousness is awake, confused, Oriented to person, place, Speech is normal, Facial symmetry appears normal, Pupils are PERRLA. Cardiovascular: Patient's skin is warm and dry. Respiratory: Airway is patent Respiratory effort is even, unlabored, Respiratory pattern is regular, symmetrical, Breath sounds are clear bilaterally. GI: Abdomen is round non-distended, Bowel sounds present X 4 quads. Abd is soft and non tender X 4 quads. : No signs and/or symptoms were reported regarding the genitourinary system. Derm: Skin is pink, warm \T\ dry. Musculoskeletal: Range of motion: intact in all extremities. 16:51 Reassessment: pt O2 saturation at 87% on RA. Placed pt on 3 l/min via nasal cannula. mb9 Oxygen saturation now at 95%. ERP notified. 17:45 Reassessment: RT at bedside placing Bipap. mb9 17:50 Reassessment: No changes from previously documented assessment. Patient and/or family mb9 updated on plan of care and expected duration. Pain level reassessed. Patient is alert, oriented x 3, equal unlabored respirations, skin warm/dry/pink. 18:50 Reassessment: No changes from previously documented assessment. Patient and/or family mb9 updated on plan of care and expected duration. Pain level reassessed. Patient is alert/active/playful, equal unlabored respirations, skin warm/dry/pink. 19:49 Reassessment: Attempted to call report to admitting nurse. mb9 20:24 Reassessment: Attempted to call report to admitting nurse KATIANA Contreras. mb9 Vital Signs: 15:56 BP 126 / 48; Pulse 75; Resp 18; Temp 97.9(TE); Pulse Ox 97% on R/A; Weight 97 kg; eh3 Height 5 ft. 10 in. ; 16:49 BP 112 / 55; Pulse 73; Resp 12; Pulse Ox 95% on 3 lpm NC; mb9 18:11 BP 128 / 59; Pulse 69; Resp 18; Pulse Ox 100% on 40 lpm BiPAP; mb9 19:42 BP 111 / 61; Pulse 67; Resp 15 S; Pulse Ox 100% on R/A; ha1 15:56 Body Mass Index 30.68 (97.00 kg, 177.8 cm) 3 ED Course: 15:54 Patient arrived in ED. kj1 15:54 Ambrocio Mcdowell PA is PHCP. cp 15:54 Ambrocio Alonso MD is Attending Physician. cp 15:56 Mervat Vernon, KATIANA is Primary Nurse. mb9 16:00 Triage completed. eh3 16:05 Inserted saline lock: 20 gauge in right forearm, using aseptic technique. mb9 16:05 EKG done, by ED staff, reviewed by Ambrocio ACEVEDO. mb9 16:36 CT Head Brain wo Cont In Process Unspecified. EDMS 16:39 Chest Single View XRAY In Process Unspecified. EDMS 16:47 Arm band placed on. mb9 16:53 Placed in gown. Bed in low position. Call light in reach. Side rails up X 1. Client mb9 placed on continuous cardiac and pulse oximetry monitoring. NIBP monitoring applied. monitoring and evaluation advisor on. 16:53 Blood Culture Adult (2) Sent. mb9 16:53 CMP Sent. mb9 17:30 BMP: recollect Sent. mb9 17:50 Inserted saline lock: 20 gauge in right antecubital area, using aseptic technique. mb9 19:17 No provider procedures requiring assistance completed. mb9 19:28 Jasbir Hinds is Hospitalizing Provider. cp 19:48 Patient admitted, IV remains in place. mb9 21:11 Provided Education on: N/A. [facility] Administered Medications: 16:58 Drug: NS 0.9% IV 250 ml Route: IV; Rate: bolus; Site: right forearm; mb9 20:23 Follow up: Response: No adverse reaction; IV Status: Completed infusion mb9 17:30 Drug: DuoNeb Nebulize (2.5 mg - 0.5 mg) 3 ml Route: Nebulizer; mb9 20:22 Follow up: Response: No adverse reaction mb9 17:38 Not Given (Physician Discretion): D50W IVP 50 ml IVP once; (1 amp) cp 17:49 Drug: Calcium Chloride IVP 1 grams Route: IVP; Site: right antecubital; mb9 20:22 Follow up: Response: No adverse reaction mb9 17:49 Drug: Sodium Bicarbonate IVP 1 amp Route: IVP; Site: right antecubital; mb9 20:23 Follow up: Response: No adverse reaction mb9 17:49 Drug: D10 in Water IVP 250 ml Route: IVP; Site: right antecubital; mb9 20:22 Follow up: Response: No adverse reaction mb9 17:49 Not Given (Risk of aspiration due to Bipap on ptt): Kayexalate PO 30 grams PO once mb9 Medication: 16:53 VIS not applicable for this client. mb9 Outcome: 19:28 Decision to Hospitalize by Provider. cp 20:32 Admitted to ICU via stretcher, room 1, on monitor, with chart, Report called to tom Contreras RN 20:32 Condition: stable 20:32 Instructed on the need for admit. 21:11 Patient left the ED. 3 Signatures: Dispatcher [employer] EDMS Ambrocio Mcdowell PA PA cp Chloé Olsen kj1 Shavonne Anderson RN RN 3 Leandra Fisher RN RN 1 Mervat Veronn RN RN [email or web address] Corrections: (The following items were deleted from the chart) 20:24 19:48 Condition: stable mb9 mb9
[2023-04-23] MEDS ORDERED: ONDANSETRON 4 MG/2 ML VIAL IV PRN (19:40)
[2023-04-23] MEDS: ALBUTEROL 2.5 MG/3 ML NEB SOL NEB SCH (20:00)
--- NOTE | 2023-04-23 21:09 | P.HP ---
Certification for Inpatient Patient admitted to: Inpatient With expected LOS: <2 Midnights Patient will require the following post-hospital care: None Practitioner: I am a practitioner with admitting privileges, knowledge of patient current condition, hospital course, and medical plan of care. Services: Services provided to patient in accordance with Admission requirements found in Title 42 Section 412.3 of the Code of Federal Regulations Patient History Date of Service: 04/23/23 Reason for admission: confusion History of Present Illness: 62-year-old male with past medical history of ESRD on HD MWF, CHF, and hypertension who presented to the emergency department via EMS with decreased responsiveness. History of end-stage renal disease on hemodialysis EMS reported last hemodialysis was on Monday. Patient has a past medical history of pulm polypharmacy use. HPI is limited due to patient confusion. Plan to admit to ICU on BiPAP for metabolic encephalopathy, hyponatremia,acute hypoxic respiratory failure, respiratory acidosis end-stage renal disease on hemodialysis, hyperkalemia ABG 7.20, O2 71.2, CO2, 58.4, HCO3 normal at 22, End-stage renal disease on hemodialysis BUN 73, creatinine 11.50 estimated GFR is 5, glucose 138, calcium low at 7.9, potassium at 6.6, Head CT IMPRESSION: No evidence of an acute intracranial process. Stable chronic findings as above. Chest x-ray IMPRESSION: No acute cardiopulmonary process. Stable cardiomegaly. Paper Spooler notified, plan to admit for emergent dialysis Allergies No Known Allergies Allergy (Verified 01/01/21 21:09) Home Medications: Folic Acid/Vit B Complex and C [Fauzia-Conor Tablet] 1 tab PO DAILY 04/08/22 Sucroferric Oxyhydroxide [Velphoro] 500 mg PO TIDWMHS 04/08/22 Bumetanide 1 tab PO DAILY 11/02/22 Lisinopril [Zestril] 20 mg PO DAILY 03/22/23 Oxybutynin Chloride [Ditropan Xl] 5 mg PO DAILY 03/22/23 Epoetin [Retacrit] 10,000 unit IV EVERY HD vial 03/24/23 - Past Medical/Surgical History Diabetic: Yes -: End-stage renal disease on hemodialysis -: Hypertension -: Non-Insulin Dependent Type 2 Diabetes -: Chronic IJ blood clot -: Peritoneal dialysis port -: shoulder surgery Psychosocial/ Personal History: Patient with 5 children. - Family History Father -: Heart disease - Social History Alcohol use: No CD- Drugs: No Caffeine use: No Review of Systems is unable to be obtained Physical Examination - Physical Exam General: Oriented x1 (Eyes open to verbal, sedated), Moderate distress HEENT: Atraumatic, Normocephalic Neck: Supple, 2+ carotid pulse no bruit, JVD not distended Respiratory: Diminished Cardiovascular: No edema, Normal pulses, Normal S1 S2 Capillary refill: <2 Seconds Gastrointestinal: Normal bowel sounds, Soft and benign Musculoskeletal: No clubbing, No swelling Integumentary: No rashes, No breakdown Neurological: Other (Confused, eyes open to verbal, no focal deficits) - Studies Laboratory Data (last 24 hrs) 04/23/23 17:30: Sodium 119 L*, Potassium 6.6 H*, BUN 73 H, Creatinine 11.50 H, Glucose 59 L 04/23/23 16:27: PT 11.5, INR 1.05, APTT 36.3 04/23/23 16:27: Sodium 122 L, Potassium 5.9 H, BUN 72 H, Creatinine 11.60 H, Glucose 64 L, Total Bilirubin 0.6, AST 8 L, ALT 13 L, Alkaline Phosphatase 122 H 04/23/23 16:27: WBC 10.90, Hgb 11.3 L, Hct 34.6 L, Plt Count 216 Assessment and Plan - Plan Assessment and Plan Acute metabolic encephalopathy Current Visit: Yes Status: Acute hyponatremia acute End stage renal disease Current Visit: Yes Status: Chronic Hyperkalemia Current Visit: Yes Status: Acute 3% normal saline BMP every 4 hours MAC Anemia in chronic kidney disease (CKD) Current Visit: Yes Status: Chronic Qualifiers: Chronic kidney disease stage: on chronic dialysis Qualified Code(s): N18.6 - End stage renal disease; D63.1 - Anemia in chronic kidney disease; Z99.2 - Dependence on renal dialysis History of CHF (congestive heart failure) Current Visit: Yes Status: Chronic Qualifiers: Heart failure type: diastolic Heart failure chronicity: chronic Qualified Code(s): I50.32 - Chronic diastolic (congestive) heart failure Diabetes mellitus Current Visit: Yes Status: Chronic Qualifiers: Diabetes mellitus type: type 2 Diabetes mellitus skilled nursing insulin use: without skilled nursing use Diabetes mellitus complication status: with kidney complications Diabetes mellitus complication detail: with chronic kidney disease Chronic kidney disease stage: on chronic dialysis Qualified Code(s): E11.22 - Type 2 diabetes mellitus with diabetic chronic kidney disease; N18.6 - End stage renal disease; Z99.2 - Dependence on renal dialysis HTN (hypertension) Current Visit: Yes Status: Chronic Qualifiers: Hypertension type: primary hypertension Qualified Code(s): I10 - Essential (primary) hypertension - Plan Patient is admitted to ICU on BiPAP plan for emergent dialysis for hyperkalemia Encephalopathy multifactorial due to hyponatremia, polypharmacy and hyperkalemia. Past medical history reveals polypharmacy PURIFICATION DIRECTOR shows active tylenol 4, valium, and ambien prescriptions. Nephrology consulted. He has not had HD since Monday due to fistula complications which he reports are now resolved. Potassium is 6.6 No EKG changes. Received hyperkalemia cocktail in ED. Monitor on telemetry. Glucose and blood pressure control. Reconcile and continue home medications. Heparin for VTE prophylaxis. Full code. Discharge Plan: Home Plan to discharge in: Greater than 2 days - Advance Directives Does patient have a Living Will: No Does patient have a Durable POA for Healthcare: No - Code Status/Comfort Care Code Status Assessed: Yes Code Status: Full Code Physician Review: Patient Assessed, Agree with Above Assessment and Plan Critical Care: No Time Spent Managing Pts Care (In Minutes): 75 Discharge Plan: Home Plan to discharge in: 48 Hours - Advance Directives Does patient have a Living Will: No Does patient have a Durable POA for Healthcare: No - Code Status/Comfort Care Code Status: Full Code Physician Review: Patient Assessed, Agree with Above Assessment and Plan Critical Care: Yes Time Spent Managing Pts Care (In Minutes): 75
[2023-04-23 21:51] LABS: Magnesium 2.7 mg/dL (1.6-2.4); Potassium 5.5 mEq/L (3.5-5.1)
[2023-04-23] MEDS ORDERED: MANNITOL 25% 12.5 GM/50 ML VIAL IV PRN (23:38)
[2023-04-23] MEDS ORDERED: MANNITOL 25% 100 ML IV ONE (23:54)
[2023-04-23] MEDS ORDERED: MANNITOL 25% 50 ML IV ONE (23:56)
[2023-04-24] MEDS: HEPARIN 5000 UNIT/ML 1 ML VIAL SQ SCH ×3 (01:00→18:36)
[2023-04-24] MEDS ORDERED: DEXMEDETOMIDINE HCL 200 MCG in NA CHLORIDE 0.9% 98 ML IV SCH (03:00)
[2023-04-24] MEDS ORDERED: DEXMEDETOMIDINE HCL 200 MCG/2 ML VIAL ONE (03:11)
[2023-04-24] MEDS ORDERED: NA CHLORIDE 0.9% 100 ML ONE (03:11)
[2023-04-24] MEDS: ALBUTEROL 2.5 MG/3 ML NEB SOL NEB SCH ×7 (04:50→22:30)
[2023-04-24 07:45] LABS: Absolute Lymphocytes (CBC) 0.7 K/uL (0.7-4.9); Hematocrit 33.8 % (39.6-49.0); Lymphocytes % 8.9 % (15.3-44.8); MPV 7.6 fL (7.6-11.3)
[2023-04-24 07:51] LABS: Potassium 3.8 mEq/L (3.5-5.1)
[2023-04-24 07:52] LABS: Magnesium 2.6 mg/dL (1.6-2.4)
[2023-04-24 07:53] LABS: Hepatitis B surface AG Interp. Nonreactive (Nonreactive)
--- NOTE | 2023-04-24 11:44 | EKG ---
Test Date: 2023-04-23 Test Time: 16:42:33 Talent Acquisition Sourcer: MB MEASUREMENT RESULTS: Intervals: Rate: 71 NV: 196 QRSD: 110 QT: 396 QTc: 430 Hope: P: 17 NV: 196 QRS: 79 T: 17 INTERPRETIVE STATEMENTS: Normal sinus rhythm Normal ECG Compared to ECG 03/22/2023 01:28:29 ST (T wave) deviation no longer present Electronically Signed On 04-24-23 11:43:04 CDT by Robby Cobb
[2023-04-24] MEDS ORDERED: D10W 250 ML IV ONE (12:26)
--- NOTE | 2023-04-24 13:06 | P.PN ---
Subjective Date of Service: 04/24/23 Chief Complaint: confusion Patient is still on BIPAP. S/p hemodialysis last night. Nurse report agitation last night. No fever. Physical Examination - Vital Signs Temperature: 97.9 F Blood Pressure: 113/59 Pulse: 64 Respirations: 17 Pulse Ox (%): 98 - Physical Exam General: Confused, Other (sedated) HEENT: Other (BIPAP) Neck: JVD not distended Respiratory: Diminished (b/l) Cardiovascular: No edema, Regular rate/rhythm, Normal S1 S2 Gastrointestinal: Soft and benign, Non-distended Musculoskeletal: No swelling Integumentary: No rashes, No cyanosis Neurological: Normal strength at 5/5 x4 extr - Studies Laboratory Data (last 24 hrs) 04/23/23 17:30: Sodium 119 L*, Potassium 6.6 H*, BUN 73 H, Creatinine 11.50 H, Glucose 59 L 04/23/23 16:27: PT 11.5, INR 1.05, APTT 36.3 04/23/23 16:27: Sodium 122 L, Potassium 5.9 H, BUN 72 H, Creatinine 11.60 H, Glucose 64 L, Total Bilirubin 0.6, AST 8 L, ALT 13 L, Alkaline Phosphatase 122 H 04/23/23 16:27: WBC 10.90, Hgb 11.3 L, Hct 34.6 L, Plt Count 216 Assessment And Plan - Current Problems (Diagnosis) (1) Acute hypercapnic respiratory failure Current Visit: No Status: Acute (2) Acute metabolic encephalopathy Current Visit: No Status: Acute (3) Hyperkalemia Current Visit: No Status: Acute (4) Diabetes mellitus Current Visit: No Status: Chronic Qualifiers: Diabetes mellitus type: type 2 Diabetes 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 exterminator insulin use: without usp use Diabetes mellitus complication status: with kidney complications Diabetes mellitus complication detail: with chronic kidney disease Chronic kidney disease stage: on chronic dialysis Qualified Code(s): E11.22 - Type 2 diabetes mellitus with diabetic chronic kidney disease; N18.6 - End stage renal disease; Z99.2 - Dependence on renal dialysis (5) ESRD (end stage renal disease) on dialysis Current Visit: No Status: Chronic (6) HTN (hypertension) Current Visit: No Status: Chronic Qualifiers: Hypertension type: primary hypertension Qualified Code(s): I10 - Essential (primary) hypertension - Plan Wean BIPAP and sedation with Precedex drip as needed. Nephrology is following and managing electrolytes abnormalities and dialysis. Hyponatremia is improving. Monitor BMP to follow hyponatremia. Hyponatremia treatment with hemodialysis. AMS likely secondary to uremia and hyponatremia. Hold home antihypertensives.
[2023-04-24 17:37] LABS: Potassium 4.3 mEq/L (3.5-5.1)
[2023-04-24] MEDS ORDERED: DEXMEDETOMIDINE HCL 1,000 MCG in NA CHLORIDE 0.9% 490 ML IV SCH (18:00)
[2023-04-24 19:17] LABS: Arterial Blood Carboxyhemoglob 1.2 % (0-1.5); Blood Gas Oxyhemoglobin 96.9 % (94-97); Blood O2 Saturation 99.5 % (92-98.5)
[2023-04-24] MEDS ORDERED: THIAMINE 200 MG/2 ML INJ IVP ONE (22:44)
[2023-04-24] MEDS: D5W 1,000 ML IV SCH (23:35)
--- NOTE | 2023-04-24 23:41 | CON ---
Date of Consultation: 04/24/2023 Chief Complaint: Hyperkalemia, end-stage renal disease. History Of Present Illness: The patient is a 62-year-old man with past medical history of end-stage renal disease, on hemodialysis Monday, Monday, and Monday; congestive heart failure; hypertension; history of decompensated congestive heart failure. He presented to emergency room via EMS with decr eased responsiveness. He has history of previous admission for confusion. He was found in respirato ry acidosis. The patient was admitted to ICU and emergent dialysis was ordered for hyperkalemia. John scott received hemodialysis last night. Potassium was up to 6.6, glucose 138, creatinine level 11.5, BUN 73, calcium was 7.9. CT scan of the head was done for acute mental status changes and showed st able chronic findings. No evidence of acute intracranial process. Chest x-ray was obtained and did not show acute cardiopulmonary process. Stable cardiomegaly was present. Due to hyperkalemia, potas sium of 6.6, the patient had emergent hemodialysis done in ICU for metabolic clearance and to treat h yperkalemia. Review of Systems: Patient is still somewhat lethargic, arousable, cannot provide review of systems. Past Medical History: End-stage renal disease, on hemodialysis; hypertension;, xnd-wvtvzti-dcbusesic diabetes mellitus type 2; chronic IJ thrombosis; peritoneal dialysis catheter placement and removal; shoulder surgery; congestive heart failure; diastolic dysfunction ; obstructive sleep apne a; chronic pain; peripheral neuropathy. Family History: Father with heart disease. Social History: Denies alcohol or illicit drugs. Denies tobacco. Physical Examination: General: The patient is oriented x1. Opens eyes to verbal stimuli. He is not in any distress. HEENT: Atraumatic, normocephalic. Neck: Supple. No JVD. Cardiovascular: S1 and S2. Musculoskeletal: No clubbing, no swellings. GI: Normal bowel sounds. No rebound. No guarding. Skin: Warm and dry. No skin rashes. Neurologic: The patient is confused. He opens eyes to verbal stimuli. Labs: Sodium 119, potassium 6.6, glucose 59, chloride 89, carbon dioxide 22, calcium 7.9. Subsequen tly, after treatment for hyperkalemia, sodium 123, potassium 5.5, chloride 90, carbon dioxide 24, BUN 74, creatinine 11.9. Lab work obtained today showed sodium 130, potassium 3.8, chloride 96, CO2 of 25, BUN 46, creatinine 8.10, magnesium 2.6. Impression: 1.End-stage renal disease, hyperkalemia. Potassium level has improved with medication, and emergent dialysis was ordered for metabolic clearance. 2.Hyponatremia. Due to dilutional effect of fluid overload. Sodium level gradually improved. Cont inue to monitor electrolytes closely. 3.Renal osteodystrophy. Monitor calcium, phosphorus, and magnesium level. The patient is in ICU. He has congestive heart failure. BNP is elevated. Plan is to resume dialysis tomorrow to provide me tabolic clearance and ultrafiltration. 4.Hypertension. Monitor blood pressure closely. Adjust medication as needed. On arrival to the [facility], patient had hypotensive episode, 92/52 blood pressure. The patient may require midodrine or IV pressors for blood pressure support. EB/MODL Voice ID: [id number] Report ID: [id number]
[2023-04-25] MEDS: HEPARIN 5000 UNIT/ML 1 ML VIAL SQ SCH ×3 (00:33→17:00)
[2023-04-25] MEDS: ALBUTEROL 2.5 MG/3 ML NEB SOL NEB SCH ×5 (02:50→20:10)
[2023-04-25 05:15] LABS: Absolute Lymphocytes (CBC) 0.8 K/uL (0.7-4.9); Hematocrit 29.9 % (39.6-49.0); Lymphocytes % 11.7 % (15.3-44.8); MCV 89.2 fL (80-100); MPV 7.3 fL (7.6-11.3); RBC Red Blood Cell Count 3.35 M/uL (4.33-5.43)
[2023-04-25 05:31] LABS: Albumin 3.3 g/dL (3.4-5.0); Bilirubin Total 0.5 mg/dL (0.2-1.0); Magnesium 2.5 mg/dL (1.6-2.4); Potassium 4.4 mEq/L (3.5-5.1); Protein, Total 6.9 g/dL (6.4-8.2); Thyroid Stimulating Hormone 0.389 uIU/mL (0.358-3.740)
--- NOTE | 2023-04-25 06:52 | P.PN ---
Date of Service: 04/25/23 Subjective: more alert today, but doesnt recall events that led to hospitalization remains on precedex drip, d/t pulling at monitors/BIPAP, intermittent confusion - but requiring less BP borderline low-normal overnight/this morning no acute events overnight ROS: 10 point ROS as noted above, otherwise negative Physical Exam: GEN: orientedx3, confused at times about specific timing of events HEENT: Normal conjunctiva, sclera anicteric CV: Regular rate and rhythm, no edema Pulm: Nonlabored respirations on NC, diminished at bases b/l ABD: Soft, nontender, nondistended Integumentary: No rashes Neuro: Normal speech, normal affect, moves all extremities vitals reviewed Problem List: Acute Hypercapnic Respiratory Failure Acute metabolic Encephalopathy Hyperkalemia ESRD on HD NIDDM2 Hypertension Acute Hypercapnic Respiratory Failure Acute metabolic Encephalopathy CXR (04/23): No acute cardiopulmonary process. Stable cardiomegaly CT Head (04/23): No evidence of an acute intracranial process Patchy left hemispheric predominant periventricular and deep white matter hypodensities, stable in extent, and nonspecific, most suggestive of chronic small vessel ischemic changes encephalopathy likely secondary to uremia and possibly from medication wean BIPAP wean Precedex Pulmonology consulted Continue Prednisone, PRN nebs Blood cultures: NGTD afebrile without leukocytosis Hyperkalemia ESRD on HD Nephrology is following Continue to monitor renal function Dialysis today NIDDM2 ACHS Accu-Chek, SSI Hypertension Hold home antihypertensives. VTE: Heparin sq Code: Full Dispo: Home, ~2-3 days
[2023-04-25 09:22] LABS: Arterial Blood Carboxyhemoglob 1.4 % (0-1.5); Blood O2 Saturation 91.5 % (92-98.5)
[2023-04-25] MEDS: D5W 1,000 ML IV SCH ×2 (12:20→14:44)
--- NOTE | 2023-04-25 12:35 | P.CNS ---
Date of Consult: 04/25/23 Reason for Consult: Respiratory failure Chief Complaint: confusion History of Present Illness: Patient is 62 years of age altered mental status he denies any complaints history of end-stage renal disease is currently on dialysis he presented with altered mental status patient is currently agitated on Precedex drip admitted with metabolic encephalopathy electrolyte imbalance [place] any shortness of breath fever chills and was found to be in hypercapnic hypoxic respiratory failure does not smoke drink alcohol Allergies No Known Allergies Allergy (Verified 01/01/21 21:09) Home Medications: Folic Acid/Vit B Complex and C [Fauzia-Conor Tablet] 1 tab PO DAILY 04/08/22 Sucroferric Oxyhydroxide [Velphoro] 500 mg PO TIDWMHS 04/08/22 Bumetanide 1 tab PO DAILY 11/02/22 Lisinopril [Zestril] 20 mg PO DAILY 03/22/23 Oxybutynin Chloride [Ditropan Xl] 5 mg PO DAILY 03/22/23 Epoetin [Retacrit] 10,000 unit IV EVERY HD vial 03/24/23 - Past Medical/Surgical History Diabetic: Yes -: End-stage renal disease on hemodialysis -: Hypertension -: Non-Insulin Dependent Type 2 Diabetes -: Chronic IJ blood clot -: Peritoneal dialysis port -: shoulder surgery Psychosocial/ Personal History: Patient with 5 children. - Family History Father Medical History: Heart disease - Social History Smoking Status: Unknown if ever smoked Alcohol use: No CD- Drugs: No Caffeine use: No Review of Systems Unremarkable Physical Examination Temp Pulse Resp BP Pulse Ox 97.6 F 57 16 111/58 L 94 04/25/23 08:00 04/25/23 10:00 04/25/23 10:00 04/25/23 10:00 04/25/23 10:00 General: Alert, Oriented x3 HEENT: Atraumatic Neck: Supple Respiratory: Clear to auscultation bilaterally, Diminished Cardiovascular: No edema, Regular rate/rhythm, Normal S1 S2 Gastrointestinal: Normal bowel sounds, Soft and benign, Non-distended - Problems (1) Respiratory failure Current Visit: Yes Status: Acute Plan: Patient is 62 years of age admitted with altered mental status mildly hypercapnic metabolic acidosis chronic renal failure on dialysis chest x-ray is clear mild cardiomegaly labs reviewed mild anemia consistent with his chronic renal failure cultures are so far negative patient does take Tylenol with codeine in addition to Valium is probably drug-induced encephalopathy DC dexmedetomidine phonation satisfactory add IV thiamine Qualifiers: Chronicity: unspecified
[2023-04-25] MEDS ORDERED: D5 0.45 NS 1,000 ML IV SCH (16:00)
[2023-04-25 16:09] LABS: Potassium 3.8 mEq/L (3.5-5.1)
--- NOTE | 2023-04-25 16:49 | P.PN ---
Subjective Date of Service: 04/25/23 Chief Complaint: confusion Subjective: Other (Received HD today.) Review of Systems General: Weakness Eyes: Unremarkable ENT: Unremarkable Respiratory: SOB with Excertion Cardiovascular: Unremarkable Gastrointestinal: Unremarkable Genitourinary: Unremarkable Musculoskeletal: Unremarkable Integumentary: Unremarkable Neurological: Weakness Lymphatics: Unremarkable Physical Examination - Vital Signs Temperature: 97.8 F Blood Pressure: 130/51 Pulse: 65 Respirations: 13 Pulse Ox (%): 95 - Physical Exam General: Other (Chronically ill-appearing) HEENT: Atraumatic, Normocephalic Neck: Supple Cardiovascular: No rubs, No murmurs Gastrointestinal: Soft and benign, No guarding Integumentary: No warmth Neurological: Normal tone Urinary: Other (no bladder distention) External genitalia: Deferred Rectal: Deferred Assessment And Plan - Plan # ESRD HD received today HD TTS while in-house # HypoNa Correction via HD Advised on po fluid intake restriction to 1L/day # Hyperkalemia Correction via HD Renal diet # Borderline hypotension F/u serum cortisol, ACTH, DHEAS # Acute respi failure CXR unremarkable on adm TTE in [address] PE in October 2022 showed no pulmonary embolism, no pulmonary hypertension Check TTE Consult Pulmonology & Cardiology # AMS Per other services HD as above # Anemia Monitor CBC # Renal osteodystrophy Monitor serum Ca & Phos # DM2 Mngt per primary team Physician Review: Patient Assessed, Agree with Above Assessment and Plan
[2023-04-25] MEDS: THIAMINE 200 MG/2 ML INJ IVP SCH (20:30)
[2023-04-25] MEDS: CODEINE 30MG/APAP 300MG TAB PO PRN (22:56)
[2023-04-26] MEDS: HEPARIN 5000 UNIT/ML 1 ML VIAL SQ SCH ×3 (00:18→17:26)
[2023-04-26] MEDS: ALBUTEROL 2.5 MG/3 ML NEB SOL NEB SCH ×7 (03:50→23:30)
[2023-04-26 04:25] LABS: Hematocrit 30.9 % (39.6-49.0); MCV 87.6 fL (80-100); MPV 7.3 fL (7.6-11.3); RBC Red Blood Cell Count 3.53 M/uL (4.33-5.43)
[2023-04-26 04:26] LABS: Absolute Lymphocytes (CBC) 0.4 K/uL (0.7-4.9); Lymphocytes % 8.5 % (15.3-44.8)
[2023-04-26 04:41] LABS: Magnesium 2.4 mg/dL (1.6-2.4); Potassium 3.5 mEq/L (3.5-5.1)
--- NOTE | 2023-04-26 06:46 | P.PN ---
Date of Service: 04/26/23 Subjective: Cannot recall events leading to hospitalization feeling better each daily, hasn't gotten out of bed much since admission no new / worsening problems ROS: 10 point ROS as noted above, otherwise negative Physical Exam: GEN: orientedx3 HEENT: Normal conjunctiva, sclera anicteric CV: Regular rate and rhythm, no edema Pulm: Nonlabored respirations on room air at rest, diminished at bases b/l ABD: Soft, nontender, nondistended Integumentary: No rashes Neuro: Normal speech, normal affect, moves all extremities vitals reviewed Problem List: Acute Hypercapnic Respiratory Failure Acute metabolic Encephalopathy Hyperkalemia ESRD on HD NIDDM2 Hypertension Acute Hypercapnic Respiratory Failure Acute metabolic Encephalopathy CXR (04/23): No acute cardiopulmonary process. Stable cardiomegaly CT Head (04/23): No evidence of an acute intracranial process Patchy left hemispheric predominant periventricular and deep white matter hypodensities, stable in extent, and nonspecific, most suggestive of chronic small vessel ischemic changes encephalopathy likely secondary to uremia and possibly from medication patient prescribed tylenol #4, diazepam, ambien at home monitor for withdrawal; continues on tylenol #3 here Pulmonology consulted Continue Prednisone, PRN nebs on nasal cannula Precedex DCd (04/25) Blood cultures: NGTD afebrile without leukocytosis Cardiology consulted - concern for diastolic dysfunction TTE in 2018 unremarkable echo pending PT consult Hyperkalemia ESRD on HD Nephrology is following Continue to monitor renal function Dialysis TTS improving NIDDM2 ACHS Accu-Chek, SSI Hypertension BP was low, Held home antihypertensives. VTE: Heparin sq Code: Full Dispo: Home, ~1-2 days
[2023-04-26] MEDS: THIAMINE 200 MG/2 ML INJ IVP SCH (08:49)
[2023-04-26] MEDS: CODEINE 30MG/APAP 300MG TAB PO PRN (08:50)
--- NOTE | 2023-04-26 12:12 | P.PN ---
Subjective Date of Service: 04/26/23 Chief Complaint: confusion Subjective: No new changes Physical Examination - Vital Signs Temperature: 98.1 F Blood Pressure: 147/73 Pulse: 84 Respirations: 15 Pulse Ox (%): 93 - Physical Exam General: Other (chronically ill-appearing) HEENT: Atraumatic, Normocephalic Neck: Supple, JVD not distended Respiratory: Other (symmetric chest expansion) Cardiovascular: No rubs, No murmurs Gastrointestinal: Soft and benign, No guarding Musculoskeletal: No clubbing Integumentary: No warmth Neurological: Normal tone Urinary: Other (no bladder distention) External genitalia: Deferred Rectal: Deferred Assessment And Plan - Plan # ESRD HD received yesterday HD TTS while in-house # HypoNa Correction via HD Advised on po fluid intake restriction to 1L/day # Hyperkalemia Correction via HD Renal diet # Borderline hypotension Serum cortisol low F/u ACTH, DHEAS # Acute respi failure CXR unremarkable on adm TTE in [address] PE in October 2022 showed no pulmonary embolism, no pulmonary hypertension F/u TTE Pulmonology & Cardiology following # AMS Improved Per other services HD as above # Anemia Monitor CBC # Renal osteodystrophy Monitor serum Ca & Phos # DM2 Mngt per primary team Physician Review: Patient Assessed, Agree with Above Assessment and Plan
[2023-04-26] MEDS ORDERED: EPOETIN ALFA-EPBX 4,000 UNIT/ML VIAL SQ ONE (12:30)
--- NOTE | 2023-04-26 13:24 | ECHO ---
HEIGHT: 5 ft 10 in WEIGHT: 213 lb 12.8 oz DATE OF STUDY: 04/26/[address]: Will Olguin MD 2-DIMENSIONAL: YES M.MODE: YES DOPPLER: YES COLOR FLOW: YES TDS: PORTABLE: YES DEFINITY: BUBBLE STUDY: DIAGNOSIS: EVALUATE FUNCTION, POSSIBLE CONGESTIVE HEART FAILURE, POSSIBLE DIASTOLIC DYSFUNCTION CARDIAC HISTORY: CATHERIZATION: NO SURGERY: NO PROSTHETIC VALVE: NO PACEMAKER: NO MEASUREMENTS (cm) DIASTOLIC (NORMALS) SYSTOLIC (NORMALS) IVSd 1.0 (0.6-1.2) LA Diam 2.8 (1.9-4.0) LVEF 55% LVIDd 5.0 (3.5-5.7) LVIDs 3.7 (2.0-3.5) %FS 26% LVPWd 1.2 (0.6-1.2) Ao Diam 3.0 (2.0-3.7) 2 DIMENSIONAL ASSESSMENT: RIGHT ATRIUM: NORMAL LEFT ATRIUM: NORMAL RIGHT VENTRICLE: NORMAL LEFT VENTRICLE: NORMAL TRICUSPID VALVE: NORMAL MITRAL VALVE: CALCIFIED MITRAL VALVE, NO MITRAL STENOSIS PULMONIC VALVE: NONE AORTIC VALVE: CALCIFIED AORTIC VALVE, NO AORTIC STENOSIS PERICARDIAL EFFUSION: NONE AORTIC ROOT: NORMAL LEFT VENTRICULAR WALL MOTION: NORMAL DOPPLER/COLOR FLOW: SEE BELOW COMMENTS: 1. NORMAL LEFT VENTRICULAR EJECTION FRACTION 55-60% WITH NORMAL WALL MOTION 2. MILD DIASTOLIC DYSFUNCTION 3. TRACE MITRAL REGURGITATION 4. CALCIFIED AORTIC VALVE (LIKELY BICUSPID) WITH MILD AORTIC INSUFFICIENCY 5. MILD TRICUSPID REGURGITATION 6. POOR WINDOWS TECHNOLOGIST: RENETTA WINSTON
--- NOTE | 2023-04-26 18:40 | CON ---
Date of Consultation: 04/26/2023 Reason For Consultation: Questionable congestive heart failure. History Of Present Illness: This is a 62-year-old male with history of end-stage renal disease, on h emodialysis, hypertension, questionable history of congestive heart failure, presented with decreased level of consciousness. There was a past medical history for polypharmacy and confusion about medic ations. He was monitored and apparently he is back to his normal baseline as he was fully awake, lex rt, and oriented during my interview. Does not have any chest pain or shortness of breath. Past Medical History: As outlined above in the HPI. Medications: Refer to reconciliation sheet for detailed list. Allergies: NO KNOWN DRUG ALLERGIES. Family History: No premature coronary artery disease or cancer. Social History: He does not smoke or drink. Does not use any drugs. Review of Systems: All systems reviewed and they were negative except what mentioned in HPI. Physical Examination: Vital Signs: Reviewed. Head and Neck: Pupils are equal, reactive to light. Intact eye movements. No JVD. No cervical lym phadenopathy. Neck is supple. Thyroid is not enlarged. Lungs: Clear to auscultation bilaterally. No rhonchi, wheezing, or crackles. No accessory muscle u se. Heart: Regular rate and rhythm. No extra sounds. Abdomen: Soft, nontender. Bowel sounds positive. No organomegaly. No masses or hernia. No rigidi ty or rebound. Extremities: No edema, clubbing, or cyanosis. Intact pulses. Skin: No rash or nodules. Neurologic: Alert, awake, oriented x3. No acute focal deficits appreciated. Investigations: BUN 42, creatinine 7.8, and hemoglobin is 10.3. Assessment And Recommendations: 1.Aortic valve stenosis. He has an aortic valve stenosis murmur and on echo, he has [id number] e and mild aortic insufficiency, so this is to be monitored, but his heart function is normal. 2.Diastolic heart failure. It is chronic and stable at this point. He does not need any diuretics. Recommend good blood pressure control and the patient is on hemodialysis anyway, so fluid managemen t through dialysis. Cardiology will sign off on the case. SR/MODL Voice ID: [id number] Report ID: [id number]
[2023-04-27] MEDS: THIAMINE 200 MG/2 ML INJ IVP SCH ×3 (00:03→22:19)
[2023-04-27] MEDS: HEPARIN 5000 UNIT/ML 1 ML VIAL SQ SCH ×3 (02:00→17:00)
[2023-04-27] MEDS: ALBUTEROL 2.5 MG/3 ML NEB SOL NEB SCH ×5 (03:40→20:00)
[2023-04-27 06:52] LABS: Magnesium 2.5 mg/dL (1.6-2.4); Potassium 3.5 mEq/L (3.5-5.1)
--- NOTE | 2023-04-27 07:33 | P.PN ---
Date of Service: 04/27/23 Subjective: doing okay, feeling tired breathing slowly improving no new / worsening problems ROS: 10 point ROS as noted above, otherwise negative Physical Exam: GEN: orientedx3 HEENT: Normal conjunctiva, sclera anicteric CV: Regular rate and rhythm, no edema Pulm: Nonlabored respirations on1L NC at rest, diminished at bases b/l ABD: Soft, nontender, nondistended Integumentary: No rashes Neuro: Normal speech, normal affect, moves all extremities vitals reviewed Problem List: Acute Hypercapnic Respiratory Failure Acute metabolic Encephalopathy Chronic Diastolic CHF, stable Aortic Valve Stenosis Hyperkalemia ESRD on HD NIDDM2 Hypertension Acute Hypercapnic Respiratory Failure Acute metabolic Encephalopathy CXR (04/23): No acute cardiopulmonary process. Stable cardiomegaly CT Head (04/23): No evidence of an acute intracranial process Patchy left hemispheric predominant periventricular and deep white matter hypodensities, stable in extent, and nonspecific, most suggestive of chronic small vessel ischemic changes encephalopathy likely secondary to uremia and possibly from medication patient prescribed tylenol #4, diazepam, ambien at home monitor for withdrawal; continues on tylenol #3 here Pulmonology consulted Continue Prednisone, PRN nebs on nasal cannula Precedex DCd (04/25) Blood cultures: NGTD afebrile without leukocytosis Chronic Diastolic CHF, stable Aortic Valve Stenosis Cardiology consulted - concern for diastolic dysfunction TTE in 2018 unremarkable echo(04/26): 55% EF with normal wall motion mild diastolic dysfunction, trace MR, calcified aortic valve with mild aortic insufficiency, mild TR, poor windows PT consult Hyperkalemia ESRD on HD Nephrology is following Continue to monitor renal function Dialysis TTS improving NIDDM2 ACHS Accu-Chek, SSI Hypertension BP was low, Held home antihypertensives. VTE: Heparin sq Code: Full Dispo: Home, ~1-2 days pending further improvement, wean oxygen
[2023-04-27] MEDS: CODEINE 30MG/APAP 300MG TAB PO PRN (23:18)
[2023-04-28] MEDS: HEPARIN 5000 UNIT/ML 1 ML VIAL SQ SCH ×3 (01:00→17:00)
[2023-04-28] MEDS: ALBUTEROL 2.5 MG/3 ML NEB SOL NEB SCH ×7 (03:39→23:25)
--- NOTE | 2023-04-28 04:06 | PN ---
Date of Progress Note: 04/27/2023 Chief Complaint: End-stage renal disease. History Of Present Illness: The patient is to have dialysis today with ultrafiltration. The patient was found to have hyponatremia, sodium level is 129. On arrival to the hospital, the patient had se nisreen hyponatremia secondary to fluid overload. Overall, sodium level has gradually improved with tanika lysis and p.o. fluid restriction. Review of Systems: The patient denies chest pain or palpitation. Physical Examination: Lungs: Clear to auscultation bilaterally. Heart: S1 and S2. Abdomen: Soft. Extremities: Slight edema. Impression And Plan: 1.End-stage renal disease, dialysis today scheduled with ultrafiltration. Continue to monitor blood pressure during dialysis. Advance ultrafiltration according to the blood pressure. 2.Hyponatremia, correction with dialysis. The patient was advised to restrict p.o. fluid intake to 1 L a day. 3.Hyperkalemia. corrected with dialysis. Continue low-potassium diet, renal diet. 4.Borderline hypotension. Serum cortisol was ordered and pending. 5.Acute respiratory failure. The patient had TTE in 2018, which was unremarkable. He had CT PE in October 2022, which showed no pulmonary embolism. No pulmonary hypertension. The patient will follo w up with angular developer and drapery cutter machine for further workup as needed. 6.Altered mental status, encephalopathy, improved with dialysis. Monitor electrolytes including sherry sphorus and magnesium and renal panel. 7.Anemia in chronic kidney disease. Monitor hemoglobin level. 8.Renal osteodystrophy. Continue binders. Monitor calcium and phosphorus. EB/MODL Voice ID: [id number] Report ID: [id number]
[2023-04-28 05:34] LABS: Potassium 3.6 mEq/L (3.5-5.1)
--- NOTE | 2023-04-28 08:06 | P.PN ---
Date of Service: 04/28/23 Subjective: doing okay today no new / worsening problems has not been ambulating much off oxygen this afternoon, sats in 90s ROS: 10 point ROS as noted above, otherwise negative Physical Exam: GEN: orientedx3 HEENT: Normal conjunctiva, sclera anicteric CV: Regular rate and rhythm, no edema Pulm: Nonlabored respirations on room air at rest, diminished at bases b/l ABD: Soft, nontender, nondistended Integumentary: No rashes Neuro: Normal speech, normal affect, moves all extremities vitals reviewed Problem List: Acute Hypercapnic Respiratory Failure Acute metabolic Encephalopathy Chronic Diastolic CHF, stable Aortic Valve Stenosis Hyperkalemia ESRD on HD NIDDM2 Hypertension Acute Hypercapnic Respiratory Failure Acute metabolic Encephalopathy CXR (04/23): No acute cardiopulmonary process. Stable cardiomegaly CT Head (04/23): No evidence of an acute intracranial process Patchy left hemispheric predominant periventricular and deep white matter hypodensities, stable in extent, and nonspecific, most suggestive of chronic small vessel ischemic changes encephalopathy likely secondary to uremia and possibly from medication patient prescribed tylenol #4, diazepam, ambien at home monitor for withdrawal; continues on tylenol #3 here Pulmonology consulted Continue Prednisone, PRN nebs on nasal cannula Precedex DCd (04/25) Blood cultures: NGTD afebrile without leukocytosis off oxygen 04/28 Chronic Diastolic CHF, stable Aortic Valve Stenosis Cardiology consulted - concern for diastolic dysfunction TTE in 2018 unremarkable echo(04/26): 55% EF with normal wall motion mild diastolic dysfunction, trace MR, calcified aortic valve with mild aortic insufficiency, mild TR, poor windows PT consult Hyperkalemia ESRD on HD Nephrology is following Continue to monitor renal function Dialysis TTS improving NIDDM2 ACHS Accu-Chek, SSI Hypertension BP was low, Held home antihypertensives. VTE: Heparin sq Code: Full Dispo: Home, ~1 day; possible DC in am after HD pending further improvement, remains off oxygen, ambulating
[2023-04-28] MEDS: THIAMINE 200 MG/2 ML INJ IVP SCH ×3 (09:25→20:27)
--- NOTE | 2023-04-28 14:30 | P.PN ---
Subjective Date of Service: 04/28/23 Chief Complaint: confusion Subjective: No new changes Physical Examination - Vital Signs Temperature: 98.3 F Blood Pressure: 149/71 Pulse: 78 Respirations: 16 Pulse Ox (%): 98 - Physical Exam General: Other (chronically ill-appearing) HEENT: Atraumatic, Normocephalic Neck: Supple Respiratory: Other (symmetric chest expansion) Cardiovascular: No rubs, No murmurs Gastrointestinal: Soft and benign, No guarding Musculoskeletal: No clubbing Integumentary: No warmth Neurological: Normal tone Lymphatics: No axilla or inguinal lymphadenopathy Urinary: Other (no bladder distention) External genitalia: Deferred Rectal: Deferred Assessment And Plan - Plan # ESRD Next HD tomorrow # HypoNa Correction via HD Advised on po fluid intake restriction to 1L/day # Hyperkalemia Correction via HD Renal diet # Borderline hypotension Serum cortisol low F/u ACTH, DHEAS # Acute respi failure CXR unremarkable on adm TTE in [address] PE in October 2022 showed no pulmonary embolism, no pulmonary hypertension Repeat TTE on 04/26/2023 unremarkable with normal LVEF 55% Pulmonology & Cardiology following HD as above # AMS Improved Per other services HD as above # Anemia Monitor CBC # Renal osteodystrophy Monitor serum Ca & Phos # DM2 Mngt per primary team Physician Review: Patient Assessed, Agree with Above Assessment and Plan
[2023-04-28] MEDS: CODEINE 30MG/APAP 300MG TAB PO PRN (20:23)
[2023-04-29] MEDS: HEPARIN 5000 UNIT/ML 1 ML VIAL SQ SCH ×2 (00:28→09:00)
[2023-04-29] MEDS: ALBUTEROL 2.5 MG/3 ML NEB SOL NEB SCH ×3 (04:00→12:00)
[2023-04-29 04:58] VITALS: BMI 28.8
[2023-04-29 05:44] LABS: Magnesium 2.3 mg/dL (1.6-2.4); Potassium 3.9 mEq/L (3.5-5.1)
--- NOTE | 2023-04-29 07:28 | P.PN ---
Date of Service: 04/29/23 Subjective: ROS: 10 point ROS as noted above, otherwise negative Physical Exam: GEN: orientedx3 HEENT: Normal conjunctiva, sclera anicteric CV: Regular rate and rhythm, no edema Pulm: Nonlabored respirations on room air at rest, diminished at bases b/l ABD: Soft, nontender, nondistended Integumentary: No rashes Neuro: Normal speech, normal affect, moves all extremities vitals reviewed Problem List: Acute Hypercapnic Respiratory Failure Acute metabolic Encephalopathy Chronic Diastolic CHF, stable Aortic Valve Stenosis Hyperkalemia ESRD on HD NIDDM2 Hypertension Acute Hypercapnic Respiratory Failure Acute metabolic Encephalopathy CXR (04/23): No acute cardiopulmonary process. Stable cardiomegaly CT Head (04/23): No evidence of an acute intracranial process Patchy left hemispheric predominant periventricular and deep white matter hypodensities, stable in extent, and nonspecific, most suggestive of chronic small vessel ischemic changes encephalopathy likely secondary to uremia and possibly from medication patient prescribed tylenol #4, diazepam, ambien at home monitor for withdrawal; continues on tylenol #3 here Pulmonology consulted Continue Prednisone, PRN nebs on nasal cannula Precedex DCd (04/25) Blood cultures: NGTD afebrile without leukocytosis off oxygen 04/28 Chronic Diastolic CHF, stable Aortic Valve Stenosis Cardiology consulted - concern for diastolic dysfunction TTE in 2018 unremarkable echo(04/26): 55% EF with normal wall motion mild diastolic dysfunction, trace MR, calcified aortic valve with mild aortic insufficiency, mild TR, poor windows PT consult Hyperkalemia ESRD on HD Nephrology is following Continue to monitor renal function Dialysis TTS improving NIDDM2 ACHS Accu-Chek, SSI Hypertension BP was low, Held home antihypertensives. VTE: Heparin sq Code: Full Dispo: Home, ~1 day; possible DC in am after HD pending further improvement, remains off oxygen, ambulating
[2023-04-29 08:39] VITALS: O2SAT 96
[2023-04-29] MEDS: THIAMINE 200 MG/2 ML INJ IVP SCH (09:00)
--- NOTE | 2023-04-29 12:50 | P.DS ---
Admission Date: 04/23/23 Discharge Date: 04/29/23 Reason for Admission: confusion Consultations: Cardiology - Dr. Cobb Pulmonology - Dr. Folres Nephrology - Dr. Wick Brief History of Present Illness: 62yo M, PMH: ESRD on HD MWF, CHF, and hypertension Patient presented to the emergency department via EMS with decreased responsiveness. History of end-stage renal disease on hemodialysis EMS reported last hemodialysis was on Monday. Patient has a past medical history of pulm polypharmacy use. HPI is limited due to patient confusion. Plan to admit to ICU on BiPAP for metabolic encephalopathy, hyponatremia,acute hypoxic respiratory failure, respiratory acidosis end-stage renal disease on hemodialysis, hyperkalemia Hospital Course: Problem List: Acute Hypercapnic Respiratory Failure Acute metabolic Encephalopathy Chronic Diastolic CHF, stable Aortic Valve Stenosis Hyperkalemia ESRD on HD NIDDM2 Hypertension Patient presented with decreased responsiveness, AMS. He was found to be in acute hypercapnic respiratory failure. Pulmonology was consulted. He was admitted to the ICU and placed on BiPAP. He was treated with prednisone, nebulizers, along with his home medications and had significant improvement of his symptoms. Blood cultures were without growth. Patient remained afebrile without any leukocytosis throughout his hospitalization. It was felt that this episode was due to a combination of uremia, possibly COPD component, and polypharmacy - patient is prescribed ambien, diazepam, and tylenol #4 . He had initial confusion/agitation and was briefly on a precedex drip. CT head was negative. Cardiology was consulted due to concern for possible acute diastolic CHF. Echo was okay. Heart function was stable. No further cardiac workup/procedures warranted at this time. During his hospitalization, Nephrology was consulted for management of dialysis, mild hyponatremia, mild hyperkalemia. Improved as he continued on dialysis, and remained stable. On day of discharge, he reported feeling better, was ambulating without issue, tolerating diet, breathing more comfortably. Discharged home after dialysis on 04/29 new / change in prescriptions: bumex stopped due to patient being anuric continue lisinopril / other home medications as previously prescribed recommend de-escalation of ambien/diazeam/tyenol #4 as tolerated Follow up: PCP 3-5 days Nephrology in 1-2 weeks Cardiology in a few weeks Pulmonology in 1-2 weeks Physical Exam: GEN: orientedx3 HEENT: Normal conjunctiva, sclera anicteric CV: Regular rate and rhythm, no edema Pulm: Nonlabored respirations on room air at rest, diminished at bases b/l ABD: Soft, nontender, nondistended Integumentary: No rashes Neuro: Normal speech, normal affect, moves all extremities Vital Signs/Physical Exam: Temp Pulse Resp BP Pulse Ox 98.3 F 78 16 149/71 H 98 04/29/23 09:44 04/29/23 09:44 04/29/23 09:44 04/29/23 09:44 04/29/23 09:44 Laboratory Data at Discharge: WBC 5.20 thou/uL (4.3-10.9) 04/26/23 03:57 Hgb 10.3 g/dL (13.6-17.9) L 04/26/23 03:57 Hct 30.9 % (39.6-49.0) L 04/26/23 03:57 Plt Count 188 thou/uL (152-406) 04/26/23 03:57 PT 11.5 SECONDS (9.5-12.5) 04/23/23 16:27 INR 1.05 04/23/23 16:27 APTT 36.3 SECONDS (24.3-36.9) 04/23/23 16:27 Sodium 129 mEq/L (136-145) L 04/29/23 04:32 Potassium 3.9 mEq/L (3.5-5.1) 04/29/23 04:32 BUN 59 mg/dL (7-18) H 04/29/23 04:32 Creatinine 10.00 mg/dL (0.70-1.30) H 04/29/23 04:32 Glucose 96 mg/dL (74-106) 04/29/23 04:32 Phosphorus 5.4 mg/dL (2.5-4.9) H 04/26/23 03:57 Magnesium 2.3 mg/dL (1.6-2.4) 04/29/23 04:32 Total Bilirubin 0.5 mg/dL (0.2-1.0) 04/25/23 04:45 AST 18 U/L (15-37) 04/25/23 04:45 ALT 15 U/L (16-61) L 04/25/23 04:45 Alkaline Phosphatase 104 U/L (45-117) 04/25/23 04:45 Home Medications: Folic Acid/Vit B Complex and C [Fauzia-Conor Tablet] 1 tab PO DAILY 04/08/22 Sucroferric Oxyhydroxide [Velphoro] 500 mg PO TIDWMHS 04/08/22 Lisinopril [Zestril] 20 mg PO DAILY 03/22/23 Oxybutynin Chloride [Ditropan Xl] 5 mg PO DAILY 03/22/23 Epoetin [Retacrit] 10,000 unit IV EVERY HD vial 03/24/23 Zolpidem Tartrate [Ambien*] 04/27/23 Physician Discharge Instructions: Patient presented with decreased responsiveness, AMS. He was found to be in acute hypercapnic respiratory failure. Pulmonology was consulted. He was admitted to the ICU and placed on BiPAP. He was treated with prednisone, nebulizers, along with his home medications and had significant improvement of his symptoms. Blood cultures were without growth. Patient remained afebrile without any leukocytosis throughout his hospitalization. It was felt that this episode was due to a combination of uremia, possibly COPD component, and polypharmacy - patient is prescribed ambien, diazepam, and tylenol #4 . He had initial confusion/agitation and was briefly on a precedex drip. CT head was negative. Cardiology was consulted due to concern for possible acute diastolic CHF. Echo was okay. Heart function was stable. No further cardiac workup/procedures warranted at this time. During his hospitalization, Nephrology was consulted for management of dialysis, mild hyponatremia, mild hyperkalemia. Improved as he continued on dialysis, and remained stable. On day of discharge, he reported feeling better, was ambulating without issue, tolerating diet, breathing more comfortably. Discharged home after dialysis on 04/29 new / change in prescriptions: bumex stopped due to patient being anuric continue lisinopril / other home medications as previously prescribed recommend de-escalation of ambien/diazeam/tyenol #4 as tolerated Follow up: PCP 3-5 days Nephrology in 1-2 weeks Cardiology in a few weeks Pulmonology in 1-2 weeks Followup: Unknown,U [Primary Care Provider] - Time spent managing pt's care (in minutes): 45
[2023-04-29 15:20] VITALS: BP 131/79; TEMP 98.7
--- NOTE | 2023-04-30 01:14 | PN ---
Date of Progress Note: 04/29/2023 Chief Complaint: End-stage renal disease, fluid overload and generalized weakness. The patient appe ars chronically. He is ambulatory. He denies dizziness. Physical Examination: Lungs: Clear to auscultation bilaterally. Heart: S1-S2. Abdomen: Soft, benign. Extremities: No edema. Impression And Plan: 1.End-stage renal disease. Dialysis is on hold today with ultrafiltration to control fluid overload . Hyponatremia secondary to fluid overload. Correction with dialysis. Patient on p.o. fluid restri ction 1 L per day. 2.Hyperkalemia. Correction with dialysis. 3.Borderline hypotension. Continue midodrine. Follow up on ACTH. 4.Acute respiratory failure. Chest x-ray on admission unremarkable. The patient had CT scan and pr ior PE protocol in October 2022 and showed no pulmonary hypertension. No pulmonary embolization. Fo llow up with Cardiology and Pulmonary. 5.Altered mental status, improved per other service. Management per primary team. 6.Anemia. Continue to monitor CBC. Adjust HASEEB as needed. 7.Renal osteodystrophy. Monitor calcium and phosphorus level. EB/MODL Voice ID: [id number] Report ID: [id number]
== END 2023-04-29 15:35 | disposition home or self-care (01) | DRG 91 ==
LOC: ER 15:48 → 3RD-ICU 20:10 → 4TH 04-26 13:00
PROVIDERS: ADMIT Internal Medicine; ATTEND Hospitalist
PROC: 5A09557 Assistance with Respiratory Ventilation, Greater than 96 Consecutive Hours, Continuous Positive Airway Pressure (ICD-10-PCS; principal; 2023-04-23)
PROC: 5A1D70Z Performance of Urinary Filtration, Intermittent, Less than 6 Hours Per Day (ICD-10-PCS; 2023-04-25)
DX: G92.8 Other toxic encephalopathy (principal); I50.31 Acute diastolic (congestive) heart failure; J96.01 Acute respiratory failure with hypoxia; N18.6 End stage renal disease; J96.02 Acute respiratory failure with hypercapnia; I13.2 Hypertensive heart and chronic kidney disease with heart failure and with stage 5 chronic kidney disease, or end stage renal disease; E87.1 Hypo-osmolality and hyponatremia; E87.20 Acidosis, unspecified; E87.5 Hyperkalemia; E11.22 Type 2 diabetes mellitus with diabetic chronic kidney disease; E11.42 Type 2 diabetes mellitus with diabetic polyneuropathy; D63.1 Anemia in chronic kidney disease; G47.00 Insomnia, unspecified; J44.9 Chronic obstructive pulmonary disease, unspecified; N25.0 Renal osteodystrophy; I35.0 Nonrheumatic aortic (valve) stenosis; F17.210 Nicotine dependence, cigarettes, uncomplicated; Z99.2 Dependence on renal dialysis; Z79.899 Other long term (current) drug therapy; T50.995A Adverse effect of other drugs, medicaments and biological substances, initial encounter
CPT/HCPCS: 36415; 36600; 70450; 71045; 80048; 80053; 80143; 82024; 82077; 82140; 82533; 82627; 82805; 82947; 83605; 83735; 83880; 84100; 84443; 85025; 85610; 85730; 87040; 87340; 90935; 93005; 93306; 94640; 94660; 94760; 96365; 96366; 96375; 97161; 99285; J0612; J1644; J2150; J3411; J7030; J7040; J7613; J7614; J7799; Q5106

== ENCOUNTER 2023-05-21 10:07 | Inpatient (IN) | payer OTHER ==
--- NOTE | 2023-05-21 10:39 | RAD REPORT ---
EXAM DESCRIPTION: Kiran Single View05/21/2023 10:28 am CLINICAL HISTORY: sob COMPARISON: April 2023 FINDINGS: The lungs appear clear of acute infiltrate. The heart is mildly enlarged IMPRESSION: No acute abnormalities displayed
[2023-05-21 10:47] LABS: Absolute Lymphocytes (CBC) 0.5 K/uL (0.7-4.9); Hematocrit 30.3 % (39.6-49.0); Lymphocytes % 6.6 % (15.3-44.8); MCV 89.4 fL (80-100); Platelets 204 thou/uL (152-406); RBC Red Blood Cell Count 3.39 M/uL (4.33-5.43)
[2023-05-21 11:11] LABS: Albumin 3.7 g/dL (3.4-5.0); Bilirubin Direct 0.1 mg/dL (0-0.2); Bilirubin Indirect, Calculated 0.3 mg/dL (0.2-0.8); Bilirubin Total 0.4 mg/dL (0.2-1.0); Potassium 4.9 mEq/L (3.5-5.1); Protein, Total 7.1 g/dL (6.4-8.2)
[2023-05-21 11:12] LABS: Magnesium 2.5 mg/dL (1.6-2.4); Troponin High Sensitivity 15.1 pg/mL (<58.9)
[2023-05-21 11:14] LABS: Arterial Blood Carboxyhemoglob 1.7 % (0-1.5); Blood Gas Oxyhemoglobin 80.9 % (94-97); Blood O2 Saturation 83.6 % (92-98.5)
--- NOTE | 2023-05-21 11:25 | RAD REPORT ---
EXAM DESCRIPTION: CT - Head Brain Wo Cont - 05/21/2023 11:16 am CLINICAL HISTORY: Alteration of awareness/confusion COMPARISON: April 2023 TECHNIQUE: Computed axial tomography of the head was obtained. IV contrast was not requested. All CT scans are performed using dose optimization technique as appropriate and may include automated exposure control or mA/KV adjustment according to patient size. FINDINGS: An intracranial bleed is not seen The ventricles are normal in caliber No extra-axial fluid collection is noted. Old lacunar infarction left basal ganglia Mild to moderate low-density areas within periventricular, deep and subcortical white matter likely r epresent ischemic changes secondary to small vessel disease. Fluid within the sinuses/ mastoids is not seen. IMPRESSION: No acute intracranial abnormality is seen If patient's symptoms persist MRI of the brain would be recommended
--- NOTE | 2023-05-21 13:25 | EDPHYS ---
Physician Documentation [facility] Name: Alex Cagle Age: 62 yrs Sex: Male : 1960 Arrival Date: 05/21/2023 Time: 10:07 Bed 17 Private MD: Toya Andrew H ED Physician Clayton Begum HPI: 05/21 17:50 This 62 yrs old Male presents to ER via Wheelchair with complaints of Fluid overload. kdr 17:50 Patient's spouse brings the patient to the ED today via EMS. She is concerned that for kdr the last couple of days he has had unrestricted fluid intake which is overloaded his lungs. Patient was seen at dialysis this week on Monday and Monday. On Monday they took off 5 L of fluid from his system. Patient's states that this is not normally the case. And she seemed concerned that the patient was somehow acquiring fluids without her knowledge. Patient is also reportedly more tired and confused last few days and particularly this morning. She denies any other systemic issues such as fever.. Onset: The symptoms/episode began/occurred gradually, 3 day(s) ago. Severity of symptoms: At their worst the symptoms were mild moderate just prior to arrival, in the emergency department the symptoms are unchanged. The patient has not experienced similar symptoms in the past. The patient has not recently seen a physician. Historical: - Allergies: 10:18 NKA; hb - PMHx: 10:18 CHF; Diabetes - NIDDM; Hypertension; ESRD; insomnia; hb - PSHx: 10:18 bilateral knee repairs; R shoulder; hb - Immunization history:: Client reports receiving the 2nd dose of the Covid vaccine. - Social history:: Smoking status: Patient denies any tobacco usage or history of. ROS: 17:50 Constitutional: Negative for fever, chills, and weight loss, Eyes: Negative for injury, kdr pain, redness, and discharge, Neck: Negative for injury, pain, and swelling, Cardiovascular: Negative for chest pain, palpitations, and edema, Respiratory: Negative for shortness of breath, cough, wheezing, and pleuritic chest pain, Abdomen/GI: Negative for abdominal pain, nausea, vomiting, diarrhea, and constipation, Back: Negative for injury and pain, MS/Extremity: Negative for injury and deformity, Skin: Negative for injury, rash, and discoloration. 17:50 Neuro: Positive for altered mental status, weakness, Negative for headache, hearing loss, loss of consciousness, numbness, seizure activity. Exam: 17:50 Constitutional: This is a well developed, well nourished obese patient who is kdr somnolent but in no acute distress. Head/Face: Normocephalic, atraumatic. Eyes: Pupils equal round and reactive to light, extra-ocular motions intact. Lids and lashes normal. Conjunctiva and sclera are non-icteric and not injected. Cornea within normal limits. Periorbital areas with no swelling, redness, or edema. Neck: Trachea midline, no thyromegaly or masses palpated, and no cervical lymphadenopathy. Supple, full range of motion without nuchal rigidity, or vertebral point tenderness. No Meningismus. Chest/axilla: Normal chest wall appearance and motion. Nontender with no deformity. No lesions are appreciated. Abdomen/GI: Soft, non-tender, with normal bowel sounds. No distension or tympany. No guarding or rebound. No evidence of tenderness throughout. 17:50 Cardiovascular: Edema: 1+ edema to level of left midcalf, left ankle, left foot, right midcalf, right ankle and right foot. 17:50 Respiratory: the patient does not display signs of respiratory distress, The patient is somnolent and clearly has sleep apnea. He occasionally has a respiratory pause and his sats will drop into the 80s at that point. He subsequently begins to breathe again and his saturations immediately improved. This happens probably several times a minute. He did improve over time and when reevaluated his respiratory pauses had become less frequent. 17:50 Abdomen/GI: Inspection: obese Palpation: soft, nontender. Vital Signs: 10:20 BP 131 / 69; Pulse 80; Resp 14; Temp 99(O); Pulse Ox 94% on R/A; Weight 83.91 kg (R); ss Height 5 ft. 7 in. ; Pain 0/10; 11:49 BP 113 / 84; Pulse 79; Resp 15; Pulse Ox 100% ; jl7 13:05 BP 126 / 61; Pulse 81; Resp 15; Pulse Ox 95% on 6 lpm Venturi mask; jl7 14:06 BP 143 / 73; Pulse 82; Resp 16; Pulse Ox 98% on BiPAP; jl7 14:07 jl7 10:20 Body Mass Index 28.97 (83.91 kg, 170.18 cm) ss 10:20 Pain Scale: Adult ss 14:07 BiPap settings 16/6 and 35% jl7 MDM: 13:24 Patient medically screened. kdr 17:50 Data reviewed: vital signs, nurses notes. kdr 05/21 10:09 Order name: Basic Metabolic Panel; Complete Time: 13:16 kdr 05/21 10:09 Order name: CBC with Diff; Complete Time: 13:16 kdr 05/21 10:09 Order name: LFT's; Complete Time: 13:16 kdr 05/21 10:09 Order name: Magnesium; Complete Time: 13:16 kdr 05/21 10:09 Order name: NT PRO-BNP; Complete Time: 13:16 kdr 05/21 10:09 Order name: Troponin HS; Complete Time: 13:16 kdr 05/21 10:51 Order name: ABG [facility] 05/21 11:54 Order name: AMMONIA; Complete Time: 13:16 ss 05/21 10:09 Order name: XRAY Chest (1 view); Complete Time: 10:50 kdr 05/21 10:51 Order name: CT Head Brain wo Cont; Complete Time: 13:16 kdr 05/21 13:23 Order name: BIPAP kdr 05/21 10:09 Order name: EKG; Complete Time: 10:10 kdr 05/21 10:09 Order name: Cardiac monitoring; Complete Time: 10:54 kdr 05/21 10:09 Order name: EKG - Nurse/Tech; Complete Time: 10:47 kdr 05/21 10:09 Order name: IV Saline Lock; Complete Time: 10:47 kdr 05/21 10:09 Order name: Labs collected and sent; Complete Time: 10:47 kdr 05/21 10:09 Order name: O2 Per Protocol; Complete Time: 10:47 kdr 05/21 10:09 Order name: O2 Sat Monitoring; Complete Time: 10:47 kdr Administered Medications: No medications were administered Disposition Summary: 05/21/23 13:24 Hospitalization Ordered Hospitalization Status: Inpatient Admission kdr Provider: Jasbir Hinds Location: Intensive Care Unit kdr Condition: Fair kdr Problem: an acute exacerbation kdr Symptoms: have improved kdr Bed/Room Type: Standard kdr Room Assignment: -(05/21/23 14:48) dw Diagnosis - Acute and chronic respiratory failure with hypoxia - 69% 2 liters kdr Forms: - Medication Reconciliation Form kdr - SBAR form kdr - Leadership Thank You Letter kdr Signatures: Dispatcher [employer] Viviana Peralta RN RN dw Clayton Begum MD MD kdr Blanchard, Shelby, RN RN Daphne Zaragoza RN RN Corrections: (The following items were deleted from the chart) 14:48 13:24 kdr dw
--- NOTE | 2023-05-21 13:25 | ER ---
Nurse's Notes [facility] Name: Alex Cagle Age: 62 yrs Sex: Male : 1960 Arrival Date: 05/21/2023 Time: 10:07 Bed 17 Private MD: Toya Andrew H Diagnosis: Acute and chronic respiratory failure with hypoxia-69% 2 liters Presentation: 05/21 10:20 Chief complaint: Patient states: Possible fluid overload. HD on MWF. states that ss he has been tired and a little confused since this morning which is what happened last night he was admitted for overload. denies fever. Coronavirus screen: Client denies travel out of the [place] in the last 14 days. Ebola Screen: Patient denies exposure to infectious person. Patient denies travel to an Ebola-affected area in the 21 days before illness onset. Initial Sepsis Screen: Does the patient meet any 2 criteria? No. Patient's initial sepsis screen is negative. Does the patient have a suspected source of infection? No. Patient's initial sepsis screen is negative. Risk Assessment: Do you want to hurt yourself or someone else? Patient reports no desire to harm self or others. Onset of symptoms is unknown. 10:20 Method Of Arrival: Wheelchair ss 10:20 Acuity: DEJAN 3 ss Historical: - Allergies: 10:18 NKA; hb - PMHx: 10:18 CHF; Diabetes - NIDDM; Hypertension; ESRD; insomnia; hb - PSHx: 10:18 bilateral knee repairs; R shoulder; hb - Immunization history:: Client reports receiving the 2nd dose of the Covid vaccine. - Social history:: Smoking status: Patient denies any tobacco usage or history of. Screenin:20 [facility] ED Fall Risk Assessment (Adult) History of falling in the last 3 months, jl7 including since admission No falls in past 3 months (0 pts) Confusion or Disorientation Yes (5 pts) Intoxicated or Sedated No (0 pts) Impaired Gait Yes (1 pt) Mobility Assist Device Used No (0 pt) Altered Elimination No (0 pt) Score/Fall Risk Level 3 or more points = High Risk Oriented to surroundings, Maintained a safe environment. Abuse screen: Denies threats or abuse. Denies injuries from another. Nutritional screening: No deficits noted. Tuberculosis screening: No symptoms or risk factors identified. Assessment: 10:20 General: Appears in no apparent distress. uncomfortable, Behavior is cooperative, jl7 drowsy. Pain: Denies pain. Neuro: Level of Consciousness is obeys commands, lethargic, Oriented to person. Cardiovascular: Patient's skin is warm and dry. Respiratory: Airway is patent Respiratory effort is even, unlabored, shallow, Respiratory pattern is regular, symmetrical. GI: Abdomen is round distended. : Parent/caregiver report the patient having pt does not make urine. Derm: Skin is pink, warm \T\ dry. 11:30 Reassessment: Patient appears in no apparent distress at this time. No changes from jl7 previously documented assessment. Patient and/or family updated on plan of care and expected duration. Pain level reassessed. 13:05 Reassessment: Pt O2 noted to be 69%, pt asleep and apneic, pt woke with verbal jl7 stimulation, placed pt on oxygen 2 lpm via NC, O2 increased to 94% but continues to decrease each time pt falls asleep. Attempted venti mask but continues to decrease. ERD notified. ERD ordering BiPap. 14:00 Reassessment: Patient appears in no apparent distress at this time. No changes from jl7 previously documented assessment. Patient and/or family updated on plan of care and expected duration. Pain level reassessed. 15:00 Reassessment: Patient appears in no apparent distress at this time. No changes from jl7 previously documented assessment. Patient and/or family updated on plan of care and expected duration. Pain level reassessed. Vital Signs: 10:20 BP 131 / 69; Pulse 80; Resp 14; Temp 99(O); Pulse Ox 94% on R/A; Weight 83.91 kg (R); ss Height 5 ft. 7 in. ; Pain 0/10; 11:49 BP 113 / 84; Pulse 79; Resp 15; Pulse Ox 100% ; jl7 13:05 BP 126 / 61; Pulse 81; Resp 15; Pulse Ox 95% on 6 lpm Venturi mask; jl7 14:06 BP 143 / 73; Pulse 82; Resp 16; Pulse Ox 98% on BiPAP; jl7 14:07 jl7 10:20 Body Mass Index 28.97 (83.91 kg, 170.18 cm) ss 10:20 Pain Scale: Adult ss 14:07 BiPap settings 16/6 and 35% jl7 ED Course: 10:08 Patient arrived in ED. mr 10:08 Toya Andrew DO is Private Physician. mr 10:09 Clayton Begum MD is Attending Physician. kdr 10:12 Niles Kurtz RN is Primary Nurse. jl7 10:18 Arm band placed on. hb 10:18 EKG done, by ED staff, reviewed by Clayton Begum MD. jl7 10:20 Patient has correct armband on for positive identification. Placed in gown. Bed in low jl7 position. Call light in reach. Side rails up X2. Provided Education on: use of call khan. Client placed on continuous cardiac and pulse oximetry monitoring. NIBP monitoring applied. 10:22 Triage completed. ss 10:30 XRAY Chest (1 view) In Process Unspecified. EDMS 10:40 Missed attempt(s): 20 gauge in right hand. Bleeding controlled, band aid applied, jl7 catheter tip intact. 10:50 Initial lab(s) drawn, by me, sent to lab. Inserted saline lock: 22 gauge in right hand, jl7 using aseptic technique. Blood collected. 11:18 CT Head Brain wo Cont In Process Unspecified. EDMS 12:01 Repeat lab(s) drawn. by me, sent to lab. jl7 13:24 Jasbir Hinds is Hospitalizing Provider. kdr 15:33 No provider procedures requiring assistance completed. Patient admitted, IV remains in jl7 place. intact, No redness/swelling at site. Administered Medications: No medications were administered Medication: 10:20 VIS not applicable for this client. jl7 Outcome: 13:24 Decision to Hospitalize by Provider. kdr 15:33 Admitted to ICU accompanied by nurse, accompanied by tech, via stretcher, room 5, with jl7 oxygen, on monitor, with chart, Report called to KATIANA Rubio 15:33 Condition: stable 15:33 Discharge instructions given to patient, family, Instructed on the need for admit, Demonstrated understanding of instructions. 15:34 Patient left the ED. jl7 Signatures: Dispatcher [employer] EDMS Clayton Begum MD MD [facility]erv[facility] jordan mr Keily Barth RN RN Daphne Zaragoza RN RN Niles Kurtz, RN RN jl7
--- NOTE | 2023-05-21 13:50 | P.HP ---
Patient History Date of Service: 05/21/23 Allergies No Known Allergies Allergy (Verified 01/01/21 21:09) Home Medications: Folic Acid/Vit B Complex and C [Fauzia-Conor Tablet] 1 tab PO DAILY 04/08/22 Sucroferric Oxyhydroxide [Velphoro] 500 mg PO TIDWMHS 04/08/22 Lisinopril [Zestril] 20 mg PO DAILY 03/22/23 Oxybutynin Chloride [Ditropan Xl] 5 mg PO DAILY 03/22/23 Epoetin [Retacrit] 10,000 unit IV EVERY HD vial 03/24/23 Zolpidem Tartrate [Ambien*] 04/27/23 - Past Medical/Surgical History Diabetic: Yes -: End-stage renal disease on hemodialysis -: Hypertension -: Non-Insulin Dependent Type 2 Diabetes -: Chronic IJ blood clot -: Peritoneal dialysis port -: shoulder surgery Psychosocial/ Personal History: Patient with 5 children. - Family History Father -: Heart disease - Social History Alcohol use: No CD- Drugs: No Caffeine use: No Physical Examination - Studies Laboratory Data (last 24 hrs) 05/21/23 05/21/23 10:40 10:40 WBC 8.10 Hgb 10.0 L Hct 30.3 L Plt Count 204 Sodium 126 L Potassium 4.9 BUN 45 H Creatinine 9.53 H Glucose 92 Magnesium 2.5 H Total Bilirubin 0.4 AST 11 L ALT 15 L Alkaline Phosphatase 151 H Assessment and Plan - Advance Directives Does patient have a Living Will: No Does patient have a Durable POA for Healthcare: No
--- NOTE | 2023-05-21 14:56 | P.CNS ---
Date of Consult: 05/21/23 Chief Complaint: AMS History of Present Illness: 62M w/ PMHx of ESRD on HD MWF, Htn, CHF, anemia, & renal osteodystrophy, who was brought for AMS pt had similar admission in the past for same reason that time Utox + for BZN & opiate. in ER ABG with CO2 retention and hypoxic , placed on BiPAP , now pt is zoe, last HD on Monday with UF of 4-5liters ROS limited due to AMS Head and Neck: No red eye. No ear pain. GI: denied nausea, voimiting or diarrhea : anuric Respiratory: excessive secrtion, denied SOB Cardiovascular: No chest pain. or leg swelling. Endocrine: No polydipsia. Skin: No rash. Neuro: Has weakness. Wobbly gait. Musculoskeletal: Generalized fatigue. Physical exam General: Awake, NAD, alert, on BiPAP HEENT: Atraumatic, Normocephalic Neck: Supple, no elevated JVD Respiratory: CTAB Cardiovascular: No rubs, No murmurs Gastrointestinal: Soft and benign, Non-distended Musculoskeletal: No clubbing Integumentary: No warmth # ESRD on HD HD for tomorrow, then MWF #Hyponatremia will correct with HD #Hypoxic respiratory failure likley due to AMS, Opiates? CXR with no edema Cont BiPAP # AMS Hx of Utox + for BZN & opiate. in the past Supportive care HD as above # Htn BP at goal, monitor # Anemia H/H at goal, monitor # Renal osteodystrophy Monitor Ca & Phos Allergies No Known Allergies Allergy (Verified 01/01/21 21:09) Home Medications: Folic Acid/Vit B Complex and C [Fauzia-Conor Tablet] 1 tab PO DAILY 04/08/22 Sucroferric Oxyhydroxide [Velphoro] 500 mg PO TIDWMHS 04/08/22 Lisinopril [Zestril] 20 mg PO DAILY 03/22/23 Oxybutynin Chloride [Ditropan Xl] 5 mg PO DAILY 03/22/23 Epoetin [Retacrit] 10,000 unit IV EVERY HD vial 03/24/23 Zolpidem Tartrate [Ambien*] 04/27/23 - Past Medical/Surgical History Diabetic: Yes -: End-stage renal disease on hemodialysis -: Hypertension -: Non-Insulin Dependent Type 2 Diabetes -: Chronic IJ blood clot -: Peritoneal dialysis port -: shoulder surgery Psychosocial/ Personal History: Patient with 5 children. - Family History Father Medical History: Heart disease - Social History Smoking Status: Unknown if ever smoked Alcohol use: No CD- Drugs: No Caffeine use: No Physical Examination Temp Pulse Resp BP Pulse Ox 79 100 05/21/23 13:44 05/21/23 13:44 Laboratory Data (last 24 hrs) 05/21/23 05/21/23 10:40 10:40 WBC 8.10 Hgb 10.0 L Hct 30.3 L Plt Count 204 Sodium 126 L Potassium 4.9 BUN 45 H Creatinine 9.53 H Glucose 92 Magnesium 2.5 H Total Bilirubin 0.4 AST 11 L ALT 15 L Alkaline Phosphatase 151 H
[2023-05-21] MEDS ORDERED: ONDANSETRON 4 MG/2 ML VIAL IV PRN (15:36)
[2023-05-21] MEDS: INSULIN -REGULAR HUMAN 50 UNIT/0.5 ML ML SQ SCH ×2 (15:58→21:00)
--- NOTE | 2023-05-21 16:19 | P.HP ---
Certification for Inpatient Patient admitted to: Inpatient Practitioner: I am a practitioner with admitting privileges, knowledge of patient current condition, hospital course, and medical plan of care. Services: Services provided to patient in accordance with Admission requirements found in Title 42 Section 412.3 of the Code of Federal Regulations Patient History Date of Service: 05/21/23 Reason for admission: AMS History of Present Illness: 62-year-old gentleman with a history of end-stage renal disease on hemodialysis, hypertension, diabetes mellitus was brought to the emergency department due to altered mental status. He underwent hemodialysis on Monday and about 5 L of fluid removed. No reported seizure, no reported nausea or vomiting or fever. Chest x-ray done in the emergency department is unremarkable. Blood gas demonstrated moderate CO2 retention, acidosis and hypoxia. Patient has been hospitalized multiple times for similar reasons. Previous admit urine toxicology screen was positive for benzodiazepine and opiate. Patient was on diazepam at that time which was discontinued. He stated he now takes Ambien for insomnia. He was placed on BiPAP. Patient was awake, interactive and oriented x3 and during my assessment. He is hospitalized for further management. Allergies No Known Allergies Allergy (Verified 01/01/21 21:09) Home Medications: Folic Acid/Vit B Complex and C [Fauzia-Conor Tablet] 1 tab PO DAILY 04/08/22 Sucroferric Oxyhydroxide [Velphoro] 500 mg PO TIDWMHS 04/08/22 Lisinopril [Zestril] 20 mg PO DAILY 03/22/23 Oxybutynin Chloride [Ditropan Xl] 5 mg PO DAILY 03/22/23 Epoetin [Retacrit] 10,000 unit IV EVERY HD vial 03/24/23 Zolpidem Tartrate [Ambien*] 04/27/23 - Past Medical/Surgical History Diabetic: Yes -: End-stage renal disease on hemodialysis -: Hypertension -: Non-Insulin Dependent Type 2 Diabetes -: Chronic IJ blood clot -: Peritoneal dialysis port -: shoulder surgery Psychosocial/ Personal History: Patient with 5 children. - Family History Father -: Heart disease - Social History Smoking Status: Never smoker Alcohol use: No CD- Drugs: No Caffeine use: Yes Place of Residence: Home Review of Systems Other: Except as documented, all other systems reviewed and negative. Physical Examination - Vital Signs Temperature: 99 F Blood Pressure: 113/84 Pulse: 79 Respirations: 15 Pulse Ox (%): 100 - Physical Exam General: In no apparent distress, Oriented x3 HEENT: Other (BIPAP) Neck: Supple, JVD not distended Respiratory: Diminished (Bilateral), Expiratory wheezes (Bilateral), Other (No crackles) Cardiovascular: No edema, Regular rate/rhythm, Normal S1 S2, No murmurs Capillary refill: <2 Seconds Gastrointestinal: Normal bowel sounds, Soft and benign, Non-distended, No tenderness Musculoskeletal: No swelling, No tenderness Integumentary: No rashes, No cyanosis Neurological: Normal speech, Normal strength at 5/5 x4 extr, Cranial nerves 3-12 intact Lymphatics: No axilla or inguinal lymphadenopathy - Studies Laboratory Data (last 24 hrs) 05/21/23 05/21/23 10:40 10:40 WBC 8.10 Hgb 10.0 L Hct 30.3 L Plt Count 204 Sodium 126 L Potassium 4.9 BUN 45 H Creatinine 9.53 H Glucose 92 Magnesium 2.5 H Total Bilirubin 0.4 AST 11 L ALT 15 L Alkaline Phosphatase 151 H Assessment and Plan - Problems (Diagnosis) (1) Acute respiratory failure with hypoxia and hypercapnia Current Visit: Yes Status: Acute (2) Acute metabolic encephalopathy Current Visit: No Status: Acute (3) Diabetes mellitus Current Visit: No Status: Chronic Qualifiers: Diabetes mellitus type: type 2 Diabetes mellitus skilled nursing insulin use: without skilled nursing use Diabetes mellitus complication status: with kidney complications Diabetes mellitus complication detail: with chronic kidney disease Chronic kidney disease stage: on chronic dialysis Qualified Code(s): E11.22 - Type 2 diabetes mellitus with diabetic chronic kidney disease; N18.6 - End stage renal disease; Z99.2 - Dependence on renal dialysis (4) ESRD (end stage renal disease) on dialysis Current Visit: No Status: Chronic (5) HTN (hypertension) Current Visit: No Status: Chronic Qualifiers: Hypertension type: primary hypertension Qualified Code(s): I10 - Essential (primary) hypertension - Plan Admitted in ICU. BiPAP for CO2 retention. Scheduled nebs. IV steroid. Hold psychotropic medications. Repeat blood gas and wean off BiPAP as possible. Check urine toxicology. Obtain blood cultures to rule out bacteremia given hemodialysis. Neurochecks Nephrology consulted for hemodialysis. Insulin sliding scale for glucose management. - Advance Directives Does patient have a Living Will: No Does patient have a Durable POA for Healthcare: No
[2023-05-21] MEDS: HEPARIN 5000 UNIT/ML 1 ML VIAL SQ SCH (16:52)
[2023-05-21] MEDS: IPRATROPIUM BROM 0.5MG/2.5ML NEB SCH ×2 (17:06→20:00)
[2023-05-21] MEDS: ALBUTEROL 2.5 MG/3 ML NEB SOL NEB SCH ×2 (17:06→20:00)
[2023-05-21 17:25] LABS: Blood O2 Saturation 98.4 % (92-98.5)
[2023-05-21 17:26] LABS: Arterial Blood Carboxyhemoglob 1.5 % (0-1.5); Blood Gas Oxyhemoglobin 95.4 % (94-97)
[2023-05-21] MEDS ORDERED: NALOXONE HCL 2 MG/2 ML VIAL IV PRN (19:49)
--- NOTE | 2023-05-21 19:52 | RAD REPORT ---
EXAM DESCRIPTION: Kiran Single View05/21/2023 7:45 pm CLINICAL HISTORY: Chest pain COMPARISON: May 21, 2023 FINDINGS: The lungs appear clear of acute infiltrate. The heart is mildly enlarged IMPRESSION: No acute abnormalities displayed
[2023-05-21] MEDS ORDERED: NALOXONE 0.4 MG/ML VIAL ONE (19:58)
[2023-05-21] MEDS ORDERED: RSI MEDICATION KIT IV ONE (20:06)
[2023-05-21] MEDS: propofoL 1,000 MG/100 ML VIAL IV SCH (20:43)
--- NOTE | 2023-05-21 20:45 | P.PN ---
Subjective Date of Service: 05/21/23 Chief Complaint: AMS Subjective: Worsening Dr Oliveros notified of patient change in condition. Nurse paged due to patient Vomiting on Bipap, Repeat ABG, CXR, 0.2 Narcan ordered, Patient did not respond to narcan, patient was desating on Bipap, Code Blue called, patient intubated by ER physician, Dr Lemus. Patient placed on Ventilator support due not tolerating bipap, with worsening sedation, acute hypercarbic, hypoxia.Will notify of family of patient change of condition. Physical Examination - Vital Signs Temperature: 98.9 F Blood Pressure: 158/73 Pulse: 90 Respirations: 18 Pulse Ox (%): 99 - Studies Laboratory Data (last 24 hrs) 05/21/23 05/21/23 10:40 10:40 WBC 8.10 Hgb 10.0 L Hct 30.3 L Plt Count 204 Sodium 126 L Potassium 4.9 BUN 45 H Creatinine 9.53 H Glucose 92 Magnesium 2.5 H Total Bilirubin 0.4 AST 11 L ALT 15 L Alkaline Phosphatase 151 H
--- NOTE | 2023-05-21 21:10 | RAD REPORT ---
EXAM DESCRIPTION: Kiran Single View05/21/2023 8:40 pm CLINICAL HISTORY: Device placement endotracheal tube placement IMPRESSION: An endotracheal tube has been inserted with its tip at the level of the aortic arch.
[2023-05-21] MEDS: FENTANYL CITR 100 MCG/2 ML IV PRN (21:53)
[2023-05-21 22:09] LABS: Arterial Blood Carboxyhemoglob 1.8 % (0-1.5); Blood Gas Oxyhemoglobin 94.1 % (94-97); Blood O2 Saturation 97.5 % (92-98.5)
--- NOTE | 2023-05-21 22:25 | RAD REPORT ---
EXAM DESCRIPTION: RAD - Abdomen 1 View (KUB) - 05/21/2023 10:12 pm CLINICAL HISTORY: Device placement nasogastric tube placement FINDINGS: Tip of a nasogastric tube lies within distal stomach
[2023-05-22] MEDS: ALBUTEROL 2.5 MG/3 ML NEB SOL NEB SCH ×4 (01:10→20:00)
[2023-05-22] MEDS: IPRATROPIUM BROM 0.5MG/2.5ML NEB SCH ×6 (01:10→20:00)
[2023-05-22] MEDS: HEPARIN 5000 UNIT/ML 1 ML VIAL SQ SCH ×3 (01:14→19:14)
[2023-05-22] MEDS: propofoL 1,000 MG/100 ML VIAL IV SCH (04:24)
[2023-05-22 04:55] LABS: Hematocrit 27.6 % (39.6-49.0); Lymphocytes % 15.9 % (15.3-44.8); MCV 88.3 fL (80-100); MPV 7.4 fL (7.6-11.3); Platelets 193 thou/uL (152-406); RBC Red Blood Cell Count 3.13 M/uL (4.33-5.43)
[2023-05-22 05:21] LABS: Magnesium 2.6 mg/dL (1.6-2.4); Potassium 4.7 mEq/L (3.5-5.1); Thyroid Stimulating Hormone 0.94 uIU/mL (0.358-3.740)
[2023-05-22] MEDS ORDERED: GLUCAGON 1 MG/VIAL IM PRN (05:26)
[2023-05-22] MEDS ORDERED: D50W 25 GM/50 ML SYRINGE IV PRN (05:26)
[2023-05-22] MEDS: INSULIN -REGULAR HUMAN 50 UNIT/0.5 ML ML SQ SCH ×3 (05:46→18:00)
[2023-05-22] MEDS: D10W 125 ML IV PRN ×2 (06:01→14:38)
[2023-05-22] MEDS: FENTANYL CITR 100 MCG/2 ML IV PRN ×2 (06:07→13:42)
[2023-05-22] MEDS ORDERED: D50W 25 GM/50 ML SYRINGE IV ONE ×2 (09:04→09:05)
[2023-05-22 09:49] LABS: Arterial Blood Carboxyhemoglob 1.3 % (0-1.5); Blood Gas Oxyhemoglobin 96.5 % (94-97); Blood O2 Saturation 99.1 % (92-98.5)
[2023-05-22] MEDS ORDERED: ETOMIDATE 20 MG/10 ML VIAL IV ONE (10:15)
[2023-05-22] MEDS ORDERED: ROCURONIUM 50 MG/5 ML VIAL IV ONE (10:15)
--- NOTE | 2023-05-22 11:14 | P.PN ---
Subjective Date of Service: 05/22/23 Chief Complaint: AMS Per report patient became more unresponsive last night, vomited while on BiPAP, became more acidotic and was subsequently intubated and put on mechanical ventilation. Patient remains intubated. Noted notable episodes of hypoglycemia. Vitals have been stable. Physical Examination - Vital Signs Temperature: 98.4 F Blood Pressure: 104/63 Pulse: 65 Respirations: 18 Pulse Ox (%): 98 - Studies Laboratory Data (last 24 hrs) 05/21/23 10:40 Sodium 126 L Potassium 4.9 BUN 45 H Creatinine 9.53 H Glucose 92 Magnesium 2.5 H Total Bilirubin 0.4 AST 11 L ALT 15 L Alkaline Phosphatase 151 H Assessment And Plan - Current Problems (Diagnosis) (1) Acute respiratory failure with hypoxia and hypercapnia Current Visit: Yes Status: Acute (2) Acute metabolic encephalopathy Current Visit: No Status: Acute (3) Diabetes mellitus Current Visit: No Status: Chronic Qualifiers: Diabetes mellitus type: type 2 Diabetes mellitus group home insulin use: without group home use Diabetes mellitus complication status: with kidney complications Diabetes mellitus complication detail: with chronic kidney disease Chronic kidney disease stage: on chronic dialysis Qualified Code(s): E11.22 - Type 2 diabetes mellitus with diabetic chronic kidney disease; N18.6 - End stage renal disease; Z99.2 - Dependence on renal dialysis (4) ESRD (end stage renal disease) on dialysis Current Visit: No Status: Chronic (5) HTN (hypertension) Current Visit: No Status: Chronic Qualifiers: Hypertension type: primary hypertension Qualified Code(s): I10 - Essential (primary) hypertension - Plan Physical Exam General: Unresponsive, sedated and on mechanical ventilation, morbidly obese HEENT: ET tube, NGT Neck: JVD not distended Respiratory: Clear to auscultation bilaterally Cardiovascular: No edema, Normal pulses, Regular rate/rhythm Gastrointestinal: Normal bowel sounds, Soft and benign, nontender, nondistended. Musculoskeletal: No clubbing, No swelling Integumentary: No rashes, No breakdown Neurological: Sedated on mechanical ventilation. No focal motor deficits Plan: Acute respiratory failure with hypoxia and hypercapnia/polypharmacy/acute metabolic encephalopathy Secondary to polypharmacy Suspect underlying COPD. On mechanical ventilation Scheduled nebs. IV steroid. Hold psychotropic medications. Patient stated he is anuric. Cannot obtain toxicology screen. Spouse reported patient takes diazepam twice a day, he was recently prescribed Tylenol codeine. Patient also stated he takes Ambien for sleep. Blood cultures are pending Neurochecks Pulmonary consult. End-stage renal disease on hemodialysis/hyponatremia Nephrology consulted for hemodialysis. Sodium correction with hemodialysis. DM type II/hypoglycemia Start dextrose infusion. Insulin sliding scale for glucose management. Essential hypertension Patient has soft blood pressure. Hold home antihypertensives. DVT prophylaxis Heparin subQ
--- NOTE | 2023-05-22 12:08 | P.CNS ---
Date of Consult: 05/22/23 Reason for Consult: Respiratory failure Chief Complaint: AMS History of Present Illness: Patient is 62 years of age with a history of end-stage renal disease on hemodialysis has hypertension diabetes was admitted with altered mental status has been receiving his scheduled dialysis found to be in respiratory failure was on BiPAP transferred to the ICU got worse last night patient got intubated failed BiPAP therapy is currently agitated on any vasopressors Allergies No Known Allergies Allergy (Verified 01/01/21 21:09) Home Medications: Folic Acid/Vit B Complex and C [Fauzia-Conor Tablet] 1 tab PO DAILY 04/08/22 Sucroferric Oxyhydroxide [Velphoro] 500 mg PO TIDWMHS 04/08/22 Lisinopril [Zestril] 20 mg PO DAILY 03/22/23 Oxybutynin Chloride [Ditropan Xl] 5 mg PO DAILY 03/22/23 Epoetin [Retacrit] 10,000 unit IV EVERY HD vial 03/24/23 Zolpidem Tartrate [Ambien*] 04/27/23 - Past Medical/Surgical History Diabetic: Yes -: End-stage renal disease on hemodialysis -: Hypertension -: Non-Insulin Dependent Type 2 Diabetes -: Chronic IJ blood clot -: Peritoneal dialysis port -: shoulder surgery Psychosocial/ Personal History: Patient with 5 children. - Family History Father Medical History: Heart disease - Social History Smoking Status: Unknown if ever smoked Alcohol use: No CD- Drugs: No Caffeine use: Yes Place of Residence: Home Review of Systems is unable to be obtained Physical Examination Temp Pulse Resp BP Pulse Ox 98.4 F 65 18 104/63 98 05/22/23 11:23 05/22/23 11:23 05/22/23 11:23 05/22/23 11:23 05/22/23 11:23 General: Unresponsive Respiratory: Clear to auscultation bilaterally, Diminished Cardiovascular: No edema, Regular rate/rhythm, Normal S1 S2 Gastrointestinal: Normal bowel sounds, Soft and benign, Non-distended - Problems (1) Respiratory failure Current Visit: Yes Status: Acute Plan: Patient is 62 years of age admitted with altered mental status hypoxic hypercapn ic respiratory failure Labs reviewed patient was hypoglycemic mildly anemic now has a respiratory alkalosis acidosis suspect from hyperventilation chest x-ray shows cardiomegaly , endotracheal tube is in satisfactory position patient's oxygenation is satisfactory/changed to pressure control ventilation add bronchodilators steroids review of medical history indicates that he is never smoked add IV thiamine changed to dexmedetomidine fully can wean him off from the ventilator tomorrow patient is now become alkalotic from hyperventilation also add some antibiotics in case the possibility of an infection Qualifiers: Chronicity: acute
[2023-05-22 12:34] LABS: Hepatitis B Surface Ab - Quant 5.23 mIU/mL (<8.0); Hepatitis B surface AG Interp. Nonreactive (Nonreactive)
[2023-05-22] MEDS: CEFTRIAXONE 1,000 MG in NA CHLORIDE 0.9% 50 ML IVPB SCH (12:59)
[2023-05-22] MEDS: DEXMEDETOMIDINE HCL 200 MCG in NA CHLORIDE 0.9% 98 ML IV SCH ×2 (12:59→14:05)
[2023-05-22] MEDS: dexAMETHasone 4 MG/ML VIAL IV SCH ×2 (12:59→21:26)
--- NOTE | 2023-05-22 13:11 | EKG ---
Test Date: 2023-05-21 Test Time: 10:20:05 Manager Therapy: [place] MEASUREMENT RESULTS: Intervals: Rate: 80 [place]: 200 QRSD: 96 QT: 382 QTc: 440 [place]: P: 32 [place]: 200 QRS: 78 T: -2 INTERPRETIVE STATEMENTS: Normal sinus rhythm T wave abnormality, consider inferior ischemia Abnormal ECG Compared to ECG 04/23/2023 16:42:33 T-wave abnormality now present Possible ischemia now present Electronically Signed On 05-22-23 13:09:56 CDT by Robby Cobb
[2023-05-22] MEDS ORDERED: LORazepam 2 MG/ML VIAL IV PRN (13:56)
[2023-05-22] MEDS ORDERED: NA CHLORIDE 0.9% 250 ML IV PRN (13:56)
[2023-05-22] MEDS ORDERED: HALOPERIDOL LACT 5 MG/ML INJ IV PRN (13:56)
[2023-05-22] MEDS: MIDAZOLAM HCL 2 MG/2 ML INJ IV PRN (14:07)
[2023-05-22 15:17] LABS: Arterial Blood Carboxyhemoglob 1.2 % (0-1.5); Blood Gas Oxyhemoglobin 92.2 % (94-97); Blood O2 Saturation 94.7 % (92-98.5)
[2023-05-22] MEDS: DEXMEDETOMIDINE HCL 1,000 MCG in NA CHLORIDE 0.9% 490 ML IV SCH (15:20)
[2023-05-23] MEDS: DEXMEDETOMIDINE HCL 1,000 MCG in NA CHLORIDE 0.9% 490 ML IV SCH (00:01)
[2023-05-23] MEDS: INSULIN -REGULAR HUMAN 50 UNIT/0.5 ML ML SQ SCH ×5 (00:13→21:00)
[2023-05-23] MEDS: FENTANYL CITR 100 MCG/2 ML IV PRN (01:46)
[2023-05-23] MEDS: HEPARIN 5000 UNIT/ML 1 ML VIAL SQ SCH ×3 (01:48→16:57)
--- NOTE | 2023-05-23 02:07 | PN ---
Date of Progress Note: 05/22/2023 Chief Complaint: End-stage renal disease on hemodialysis, respiratory failure. Subjective: The patient remains in ICU. He is intubated. The patient has history of obstructive sl eep apnea. He was found to have respiratory acidosis with CO2 retention and hypoxemia. The ER gerardo p was done and ABG showed elevated pCO2, hypoxemia. The patient was placed on BiPAP and last night h e was intubated. The patient had some episode of nausea and vomiting. U-tox was sent, although it i s not available. The patient was brought to the hospital for altered mental status. He has history of previous admiss ion for altered mental status and respiratory failure. He is noncompliant with fluid restriction. H e is dialysis dependent and remains fluid overloaded today. He is undergoing dialysis with ultrafilt ration. Blood pressure is stable. Peripheral edema has improved. Review of Systems: Unobtainable. Patient is intubated. Physical Examination: Lungs: Clear to auscultation bilaterally. Heart: S1, S2. ABDOMEN: Soft, benign. Extremities: Minimal edema. Impression And Plan: 1.End-stage renal disease, on hemodialysis. Continue dialysis 3 times per week. Today dialysis is done with ultrafiltration to control fluid overload. 2.Hyponatremia due to fluid overload. Monitor electrolytes closely. Dialysis is done to correct vo lemia and to provide treatment for electrolyte abnormalities. 3.Hypoxemic respiratory failure due to altered mental status and obstructive sleep apnea. Further r ecommendation from Primary Team and Pulmonary. 4.Altered mental status. The patient has history of benzodiazepine per Primary Team. 5.Hypertension. Blood pressure controlled. Monitor blood pressure during dialysis to prevent intra dialytic hypotension. 6.Anemia due to chronic kidney disease. Monitor H and H. 7.Renal osteodystrophy. Monitor calcium and phosphorus level. EB/MODL Voice ID: [id number] Report ID: [id number]
[2023-05-23] MEDS: ALBUTEROL 2.5 MG/3 ML NEB SOL NEB SCH ×4 (02:30→20:00)
[2023-05-23] MEDS: IPRATROPIUM BROM 0.5MG/2.5ML NEB SCH ×4 (02:30→20:00)
[2023-05-23] MEDS: MIDAZOLAM HCL 2 MG/2 ML INJ IV PRN (03:50)
[2023-05-23 05:06] LABS: Absolute Lymphocytes (CBC) 0.2 K/uL (0.7-4.9); Hematocrit 31.6 % (39.6-49.0); Lymphocytes % 5.1 % (15.3-44.8); MCV 87.9 fL (80-100); MPV 7.6 fL (7.6-11.3); Platelets 166 thou/uL (152-406)
[2023-05-23 05:26] LABS: Magnesium 2.6 mg/dL (1.6-2.4); Potassium 4.4 mEq/L (3.5-5.1)
[2023-05-23 06:02] VITALS: BMI 32.5
--- NOTE | 2023-05-23 06:56 | P.PN ---
Date of Service: 05/23/23 Subjective: self extubated today denies abdominal pain ~3L fluid removed with HD can't tell me why he came to hospital / does not recall what happened ROS: 10 point ROS as noted above, otherwise negative Physical Exam: GEN: Alert, oriented, fatigued appearing HEENT: Normal conjunctiva, sclera anicteric CV: Regular rate and rhythm, trace bilateral lower ext edema Pulm: Nonlabored respirations on 2L NC ABD: Soft, nontender, nondistended Neuro: Normal speech, normal affect vitals reviewed Problem List: Acute respiratory failure with hypoxia and hypercapnia secondary to polypharmacy/acute metabolic encephalopathy ESRD on HD Hyponatremia NIDDM2 Hypertension Chronic Diastolic CHF, stable Aortic Valve Stenosis Acute respiratory failure with hypoxia and hypercapnia secondary to polypharmacy/acute metabolic encephalopathy Spouse reported patient takes diazepam BID, he was recently prescribed Tylenol codeine. Patient also stated he takes Ambien for sleep. Hold psychotropic medications. 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 Cannot obtain toxicology screen. Blood cultures: NGTD Continue empiric Rocephin (05/22-) Neurochecks mentation improving ESRD on HD Hyponatremia Nephrology is following Continue to monitor renal function Dialysis TTS Heparin with HD NIDDM2 ACHS Accu-Chek, SSI Hypertension BP have been soft, adjust/ restart as needed VTE: Heparin sq Code: Full Dispo: Home, ~2-3 days
--- NOTE | 2023-05-23 07:17 | RAD REPORT ---
EXAM DESCRIPTION: Kiran Single View05/23/2023 5:10 am CLINICAL HISTORY: Cough COMPARISON: May 21, 2023 FINDINGS: The lungs appear clear of acute infiltrate. The heart is mildly enlarged. Endotracheal an d nasogastric tubes in good position IMPRESSION: No acute abnormalities displayed
[2023-05-23 08:17] LABS: Blood Morphology Comment NOT SEEN (NOT SEEN); Platelet Estimate ADEQ
[2023-05-23] MEDS: dexAMETHasone 4 MG/ML VIAL IV SCH ×2 (08:33→21:23)
[2023-05-23] MEDS: CEFTRIAXONE 1,000 MG in NA CHLORIDE 0.9% 50 ML IVPB SCH (08:33)
[2023-05-23] MEDS ORDERED: D50W 25 GM/50 ML SYRINGE IV PRN (11:06)
[2023-05-23] MEDS ORDERED: GLUCAGON 1 MG/VIAL IM PRN (11:06)
[2023-05-23] MEDS ORDERED: DIPHENHYDRAMINE 25 MG TAB/CAP PO ONE (13:12)
--- NOTE | 2023-05-23 13:47 | PN ---
Date of Progress Note: 05/23/2023 Subjective: The patient was admitted to the hospital with respiratory failure, over volume. The pat ient was dialyzed yesterday. We had 3 L removal, tolerated well. Blood pressure still stable. The patient was extubated. Physical Examination: Vital Signs: When I saw the patient; blood pressure 135/74, pulse of 64, afebrile. Chest: Crackles bilateral. Heart: S1, S2. Systolic murmur. Abdomen: Soft nontender. Extremities: +1 edema. Neurologic: Alert. No focality. Laboratory Data: Hemoglobin 10.8. Sodium 129, potassium 4.4, bicarb 23, BUN 43, creatinine 8.3, sony cium 7.8, phosphorus 5, magnesium 5.6. Current Medications: The patient on include; 1.Ceftriaxone. 2.Haloperidol. 3.Naloxone. 4.Ipratropium. 5.Fentanyl. Assessment And Plan: 1.End-stage renal disease, over volume with respiratory failure, status post dialysis yesterday. I am going to do extra session of dialysis today. We will do sequential of 2.5 hours and we will try t o optimize fluid status for the patient. 2.Hypertension, controlled. We will utilize blood pressure for more ultrafiltration. 3.Respiratory failure secondary to over volume, status post extubation. We will optimize the fluid status today. The patient cleared from the Renal standpoint to transfer to the floor. 4.Anemia of chronic kidney disease, stable. Continue HASEEB. 5.Hyponatremia, dilutional, will be corrected with dialysis. 6.Diabetes as by primary. 7.Secondary hyperparathyroidism. Resume Renvela. Time spent examining of the patient [id number], reviewing data, lab and radiology, placing order, d iscussing the case with the patient, discussing the case with the member including hospitalist and nu rsing and ICU staff more than 35 minutes. EDGARDO/BETTINA Voice ID: [id number] Report ID: [id number]
--- NOTE | 2023-05-23 16:44 | P.PN ---
Subjective Date of Service: 05/23/23 Chief Complaint: AMS Physical Examination - Vital Signs Temperature: 99.9 F Blood Pressure: 134/70 Pulse: 92 Respirations: 16 Pulse Ox (%): 97 Assessment And Plan - Current Problems (Diagnosis) (1) Respiratory failure Current Visit: Yes Status: Acute Plan: Patient is 62 years of age admitted with altered mental status hypoxic hypercapnic respiratory failure Labs reviewed patient was hypoglycemic mildly anemic now has a respiratory alkalosis acidosis suspect from hyperventilation chest x-ray shows cardiomegaly , endotracheal tube is in satisfactory position patient's oxygenation is satisfactory/changed to pressure control ventilation add bronchodilators steroids review of medical history indicates that he is never smoked add IV thiamine changed to dexmedetomidine fully can wean him off from the ventilator tomorrow patient is now become alkalotic from hyperventilation also add some antibiotics in case the possibility of an infection Qualifiers: Chronicity: acute
--- NOTE | 2023-05-23 16:44 | P.PN ---
Subjective Date of Service: 05/23/23 Chief Complaint: Respiratory failure Patient is doing well he is very alert responsive cooperative we did extubate himself patient denies smoking or alcohol abuse no prior history of pulmonary complaints Review of Systems Unremarkable Physical Examination - Vital Signs Temperature: 99.9 F Blood Pressure: 134/70 Pulse: 92 Respirations: 16 Pulse Ox (%): 97 - Physical Exam General: Alert, In no apparent distress, Oriented x3 Respiratory: Clear to auscultation bilaterally Cardiovascular: No edema, Regular rate/rhythm, Normal S1 S2 Gastrointestinal: Normal bowel sounds, Soft and benign Assessment And Plan - Current Problems (Diagnosis) (1) Respiratory failure Current Visit: Yes Status: Acute Plan: Patient did well he extubated himself he is very alert oriented responsive cooperative does not smoke or drink is no evidence of sepsis echocardiogram done in April 15, 2023 shows normal left ventricular ejection fraction mild diastolic dysfunction no evidence of sepsis not sure what triggered this episode his vital signs are all stable DC antibiotics Qualifiers: Chronicity: acute
[2023-05-23] MEDS: EPOETIN 4,000 UNIT/ML VIAL IV SCH (17:11)
[2023-05-24] MEDS: HEPARIN 5000 UNIT/ML 1 ML VIAL SQ SCH ×3 (00:37→16:43)
[2023-05-24] MEDS: ALBUTEROL 2.5 MG/3 ML NEB SOL NEB SCH ×4 (01:20→20:00)
[2023-05-24] MEDS: IPRATROPIUM BROM 0.5MG/2.5ML NEB SCH ×4 (01:20→20:00)
[2023-05-24 04:14] LABS: Magnesium 2.7 mg/dL (1.6-2.4); Potassium 4.8 mEq/L (3.5-5.1)
[2023-05-24] MEDS: INSULIN -REGULAR HUMAN 50 UNIT/0.5 ML ML SQ SCH ×4 (07:30→20:09)
--- NOTE | 2023-05-24 07:31 | P.PN ---
Date of Service: 05/24/23 Subjective: Doing okay no new / worsening problems Breathing more comfortably on room air, +denies chest pain +nausea ROS: 10 point ROS as noted above, otherwise negative Physical Exam: GEN: Alert, orientedx3 HEENT: Normal conjunctiva, sclera anicteric CV: Regular rate and rhythm, trace bilateral lower ext edema Pulm: Nonlabored respirations on room air ABD: Soft, nontender, nondistended Neuro: Normal speech, normal affect vitals reviewed Problem List: Acute respiratory failure with hypoxia and hypercapnia secondary to polypharmacy/acute metabolic encephalopathy ESRD on HD Hyponatremia NIDDM2 Hypertension Chronic Diastolic CHF, stable Aortic Valve Stenosis Acute respiratory failure with hypoxia and hypercapnia secondary to polypharmacy/acute metabolic encephalopathy Spouse reported patient takes diazepam BID, he was recently prescribed Tylenol codeine. Patient also stated he takes Ambien for sleep. Hold psychotropic medications. 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 Cannot obtain toxicology screen. Neurochecks mentation improving PT consult ESRD on HD Hyponatremia Nephrology is following Continue to monitor renal function Dialysis TTS Heparin with HD NIDDM2 ACHS Accu-Chek, SSI Hypertension BP have been soft, adjust/ restart as needed VTE: Heparin sq Code: Full Dispo: Home, ~2 days
[2023-05-24] MEDS: dexAMETHasone 4 MG/ML VIAL IV SCH ×2 (08:34→20:08)
[2023-05-24] MEDS: EPOETIN 4,000 UNIT/ML VIAL IV SCH (14:30)
--- NOTE | 2023-05-24 15:15 | PN ---
Date of Progress Note: 05/24/2023 Subjective: The patient was admitted with over volume, respiratory failure. The patient has been di alyzed on a daily basis. The patient received dialysis, yesterday I removed 3 L. Physical Examination: Vital Signs: When I saw the patient; blood pressure of 134/71, pulse of 67. The patient started tiki ng on room air. Chest: Faint rales bilateral. Heart: S1, S2. Systolic murmur. Abdomen: Soft, nontender. Extremity: Plus edema. Neurological: Alert, oriented x3. No focality. Laboratory Data: Hemoglobin 10.8. Sodium 128, potassium 4.8, bicarb 23, BUN 62, creatinine 10, calc ium 8.2, magnesium 2.7. Current Medications: The patient on include; 1.Heparin. 2.Albuterol. 3.Epogen. 4.Breathing treatment. 5.Zofran. Assessment And Plan: 1.End-stage renal disease, over volume, status post daily dialysis, currently the patient on room ai r. I am going to switch the patient back to 3 times a week Monday, Monday, Monday, and we will fo llow up the patient. 2.Hypertension, controlled, optimal. We will continue to utilize blood pressure for more ultrafiltr ation. Keep holding blood pressure medication. 3.Congestive heart failure with exacerbation. Continue dialysis. 4.Anemia of chronic kidney disease. Continue HASEEB. 5.Hyponatremia, dilutional. Will be corrected with dialysis. RENAE Voice ID: [id number] Report ID: [id number]
[2023-05-24] MEDS: ACETAMINOPHEN 500 MG TAB PO PRN (17:03)
[2023-05-24] MEDS ORDERED: CODEINE 30MG/APAP 300MG TAB PO ONE (19:40)
[2023-05-25] MEDS: HEPARIN 5000 UNIT/ML 1 ML VIAL SQ SCH ×3 (00:30→16:11)
[2023-05-25] MEDS: ACETAMINOPHEN 500 MG TAB PO PRN ×3 (00:39→22:26)
[2023-05-25] MEDS: ALBUTEROL 2.5 MG/3 ML NEB SOL NEB SCH ×4 (02:00→20:00)
[2023-05-25] MEDS: IPRATROPIUM BROM 0.5MG/2.5ML NEB SCH ×4 (02:00→20:00)
[2023-05-25 02:55] LABS: Absolute Lymphocytes (CBC) 0.8 K/uL (0.7-4.9); Hematocrit 30.5 % (39.6-49.0); Lymphocytes % 8.9 % (15.3-44.8); MCV 88.4 fL (80-100); MPV 7.8 fL (7.6-11.3); Platelets 181 thou/uL (152-406); RBC Red Blood Cell Count 3.45 M/uL (4.33-5.43)
[2023-05-25 03:18] LABS: Albumin 3.5 g/dL (3.4-5.0); Bilirubin Total 0.3 mg/dL (0.2-1.0); Magnesium 2.3 mg/dL (1.6-2.4); Potassium 4.9 mEq/L (3.5-5.1); Protein, Total 7.3 g/dL (6.4-8.2)
--- NOTE | 2023-05-25 07:28 | P.PN ---
Date of Service: 05/25/23 Subjective: Doing okay no new / worsening problems Family concerned patient cannot take care of himself given intermittent confusion Can't recall if he has been compliant with home medications ROS: 10 point ROS as noted above, otherwise negative Physical Exam: GEN: Alert, orientedx3 HEENT: Normal conjunctiva, sclera anicteric CV: Regular rate and rhythm, trace bilateral lower ext edema Pulm: Nonlabored respirations on room air ABD: Soft, nontender, nondistended Neuro: Normal speech, normal affect vitals reviewed Problem List: Acute respiratory failure with hypoxia and hypercapnia secondary to polypharmacy/acute metabolic encephalopathy ESRD on HD Hyponatremia NIDDM2 Hypertension Chronic Diastolic CHF, stable Aortic Valve Stenosis Acute respiratory failure with hypoxia and hypercapnia secondary to polypharmacy/acute metabolic encephalopathy Spouse reported patient takes diazepam BID, he was recently prescribed Tylenol codeine. Patient also stated he takes Ambien for sleep. Hold psychotropic medications. 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 Cannot obtain toxicology screen. Neurochecks mentation improving PT consult Family concerned patient cannot take care of himself given intermittent confusion Patient can't recall if he has been compliant with home medications - Family reports he hasn't been compliant Discussed with family - agreed to regulate home medication for him to try and avoid over medication ESRD on HD Hyponatremia Nephrology is following Continue to monitor renal function Dialysis MWF Heparin with HD NIDDM2 ACHS Accu-Chek, SSI Hypertension BP have been soft, adjust / restart as needed VTE: Heparin sq Code: Full Dispo: Home, ~1 day
[2023-05-25] MEDS: INSULIN -REGULAR HUMAN 50 UNIT/0.5 ML ML SQ SCH ×4 (07:30→21:00)
[2023-05-25] MEDS: dexAMETHasone 4 MG/ML VIAL IV SCH (08:28)
[2023-05-25] MEDS ORDERED: CODEINE 30MG/APAP 300MG TAB PO ONE (11:24)
--- NOTE | 2023-05-25 12:42 | PN ---
Date of Progress Note: 05/25/2023 Subjective: The patient was admitted with over volume, respiratory failure. The patient intubated, extubated. The patient has been getting dialysis on a daily basis, tolerating very well. The patien t currently on room air. Physical Examination: Vital Signs: Blood pressure 147/77, pulse of 71, afebrile. Chest: Clear to auscultation. Heart: S1, S2. Regular. Abdomen: Soft, nontender. Extremity: No edema. Neurologic: Alert. No focality. Laboratory Data: Hemoglobin 10.3. Sodium 129, potassium 4.9, bicarb 27, BUN 54, creatinine 7.4, sony cium 8.6. Current Medications: The patient on include; 1.Heparin. 2.Naloxone. 3.Dexamethasone. 4.Codeine. Assessment And Plan: 1.End-stage renal disease with over volume, currently back to normal volume. I am going to go ahead and switch the patient to dialysis 3 times a week as Monday, Monday, Monday and we will follow up . 2.Hypertension, controlled. We will keep utilizing blood pressure for more ultrafiltration. 3.Hyponatremia secondary to renal failure. Will be corrected with dialysis. 4.Congestive heart failure exacerbation, status post dialysis, currently normal volume. We will yazmin k to dialysis 3 times a week. 5.Altered mental status secondary to overdose. Continue p.r.n. medication. RENAE Voice ID: [id number] Report ID: [id number]
[2023-05-26] MEDS: IPRATROPIUM BROM 0.5MG/2.5ML NEB SCH ×2 (02:05→07:45)
[2023-05-26] MEDS: ALBUTEROL 2.5 MG/3 ML NEB SOL NEB SCH ×2 (02:05→07:45)
[2023-05-26] MEDS: HEPARIN 5000 UNIT/ML 1 ML VIAL SQ SCH ×2 (02:40→09:27)
[2023-05-26 07:07] LABS: Magnesium 2.3 mg/dL (1.6-2.4); Potassium 4.3 mEq/L (3.5-5.1)
[2023-05-26] MEDS: INSULIN -REGULAR HUMAN 50 UNIT/0.5 ML ML SQ SCH ×2 (07:30→11:14)
[2023-05-26 08:25] VITALS: BP 179/77; TEMP 98.7
[2023-05-26 08:50] VITALS: O2SAT 96
[2023-05-26] MEDS: EPOETIN 4,000 UNIT/ML VIAL IV SCH (12:30)
--- NOTE | 2023-05-26 13:53 | P.DS ---
Admission Date: 05/21/23 Discharge Date: 05/26/23 Disposition: ROUTINE DISCHARGE Reason for Admission: Respiratory failure Consultations: Nephrology - Dr. Puentes, Dr. Pederson, Dr. Ellison Pulmonology - Dr. Flores Brief History of Present Illness: 62yo M, PMH: end-stage renal disease on hemodialysis, hypertension, diabetes mellitus Patient was brought to the emergency department due to altered mental status. He underwent hemodialysis on Monday and about 5 L of fluid removed. No reported seizure, no reported nausea or vomiting or fever. Chest x-ray done in the emergency department is unremarkable. Blood gas demonstrated moderate CO2 retention, acidosis and hypoxia. Patient has been hospitalized multiple times for similar reasons. Previous admit urine toxicology screen was positive for benzodiazepine and opiate. Patient was on diazepam at that time which was discontinued. He stated he now takes Ambien for insomnia. He was placed on BiPAP. Patient was awake, interactive and oriented x3 and during my assessment. Hospital Course: Problem List: Acute respiratory failure with hypoxia and hypercapnia secondary to polypharmacy/acute metabolic encephalopathy ESRD on HD Hyponatremia secondary to renal failure NIDDM2 Hypertension Chronic Diastolic CHF, stable Aortic Valve Stenosis Patient presented with altered mental status. Initially admitted to ICU and placed on BiPAP for moderate CO2 retention, acidosis and hypoxia. Pulmonology was consulted. A few hours after admission, patient was becoming more unresponsive. He was no longer tolerating bipap, with worsening sedation, acute hypercarbic, hypoxia, and code blue was called. Patient was intubated on 05/21 and successfully extubated 05/23. Patient was given empiric Rocephin to treat for possible infection and had improvement of his symptoms. He remained afebrile throughout hospitalization without leukocytosis. No evidence of any infection. Antibiotics were discon tinued and patient continued to show improvement. Blood culture without growth however final results pending upon discharge. Suspect etiology with multifactorial component of volume overload / uremia and a high concern for polypharmacy (benzo/opiates). Discussed in length with family who agreed to strictly monitor and regulate patients home medications as to make sure he takes them as prescribed and also to wean off benzos/opiates. Recommend close follow up with PCP. Medications: stop diazepam Follow up: PCP 3-5 days Pulmonology 1-2 weeks Physical Exam: GEN: Alert, orientedx3 HEENT: Normal conjunctiva, sclera anicteric CV: Regular rate and rhythm, trace bilateral lower ext edema Pulm: Nonlabored respirations on room air ABD: Soft, nontender, nondistended Neuro: Normal speech, normal affect Vital Signs/Physical Exam: Temp Pulse Resp BP Pulse Ox 98.7 F 75 16 179/77 H 95 05/26/23 08:00 05/26/23 08:00 05/26/23 08:00 05/26/23 08:00 05/26/23 08:00 Laboratory Data at Discharge: WBC 8.90 thou/uL (4.3-10.9) 05/25/23 02:19 Hgb 10.3 g/dL (13.6-17.9) L 05/25/23 02:19 Hct 30.5 % (39.6-49.0) L 05/25/23 02:19 Plt Count 181 thou/uL (152-406) 05/25/23 02:19 Sodium 128 mEq/L (136-145) L 05/26/23 05:54 Potassium 4.3 mEq/L (3.5-5.1) 05/26/23 05:54 BUN 80 mg/dL (7-18) H 05/26/23 05:54 Creatinine 9.33 mg/dL (0.70-1.30) H 05/26/23 05:54 Glucose 155 mg/dL (74-106) H 05/26/23 05:54 Phosphorus Cancelled 05/23/23 05:00 Magnesium 2.3 mg/dL (1.6-2.4) 05/26/23 05:54 Total Bilirubin 0.3 mg/dL (0.2-1.0) 05/25/23 02:19 AST 11 U/L (15-37) L 05/25/23 02:19 ALT 15 U/L (16-61) L 05/25/23 02:19 Alkaline Phosphatase 131 U/L (45-117) H 05/25/23 02:19 Home Medications: Folic Acid/Vit B Complex and C [Fauzia-Conor Tablet] 1 tab PO DAILY 04/08/22 Sucroferric Oxyhydroxide [Velphoro] 500 mg PO TIDWMHS 04/08/22 Lisinopril [Zestril] 20 mg PO DAILY 03/22/23 Oxybutynin Chloride [Ditropan Xl] 5 mg PO DAILY 03/22/23 Epoetin [Retacrit] 10,000 unit IV EVERY HD vial 03/24/23 Zolpidem Tartrate [Ambien*] 10 mg PO BEDTIME PRN 04/27/23 Acetaminophen with Codeine [Acetaminophen-Cod #4 Tablet] 1 tab PO QID PRN 05/23/23 Amlodipine Besylate/Benazepril [Amlodipine-Benazepril 10-20 mg] 1 cap PO TID 05/23/23 Meloxicam 7.5 mg PO DAILY 05/23/23 Physician Discharge Instructions: Patient presented with altered mental status. Initially admitted to ICU and placed on BiPAP for moderate CO2 retention, acidosis and hypoxia. Pulmonology was consulted. A few hours after admission, patient was becoming more unresponsive. He was no longer tolerating bipap, with worsening sedation, acute hypercarbic, hypoxia, and code blue was called. Patient was intubated on 05/21 and successfully extubated 05/23. Patient was given empiric Rocephin to treat for possible infection and had improvement of his symptoms. He remained afebrile throughout hospitalization without leukocytosis. No evidence of any infection. Antibiotics were discontinued and patient continued to show improvement. Blood culture without growth however final results pending upon discharge. Suspect etiology with multifactorial component of volume overload / uremia and a high concern for polypharmacy (benzo/opiates). Discussed in length with family who agreed to strictly monitor and regulate patients home medications as to make sure he takes them as prescribed and also to wean off benzos/opiates. Recommend close follow up with PCP. Medications: stop diazepam Follow up: PCP 3-5 days Pulmonology 1-2 weeks Followup: Adam Flores MD [ACTIVE - CAN ADMIT] - 1 Week Toya Andrew DO, DO [Primary Care Provider] - (3-5 days. call for apointment ) Time spent managing pt's care (in minutes): 45
--- NOTE | 2023-05-26 14:44 | P.PN ---
Subjective Date of Service: 05/26/23 Chief Complaint: Respiratory failure Physical Examination - Vital Signs Temperature: 98.7 F Blood Pressure: 179/77 Pulse: 75 Respirations: 16 Pulse Ox (%): 95 Assessment And Plan - Plan 1. End-stage renal disease with over volume, currently back to normal volume. I am going to go ahead and switch the patient to dialysis 3 times a week as Monday, Monday, Monday and we will follow up. 2. Hypertension, controlled. We will keep utilizing blood pressure for more ultrafiltration. 3. Hyponatremia secondary to renal failure. Will be corrected with dialysis. 4. Congestive heart failure exacerbation, status post dialysis, currently normal volume. We will back to dialysis 3 times a week. 5. Altered mental status secondary to overdose. Continue p.r.n. medication.
== END 2023-05-26 15:43 | disposition home or self-care (01) | DRG 208 ==
LOC: ER 10:07 → ERHOLD 13:28 → 3RD-ICU 15:01 → 2ND 05-23 15:40
PROVIDERS: ADMIT Internal Medicine; ATTEND Hospitalist
PROC: 5A1945Z Respiratory Ventilation, 24-96 Consecutive Hours (ICD-10-PCS; principal; 2023-05-21)
PROC: 0BH17EZ Insertion of Endotracheal Airway into Trachea, Via Natural or Artificial Opening (ICD-10-PCS; 2023-05-21)
DX: J96.01 Acute respiratory failure with hypoxia (principal); G92.8 Other toxic encephalopathy; N18.6 End stage renal disease; I50.33 Acute on chronic diastolic (congestive) heart failure; I13.2 Hypertensive heart and chronic kidney disease with heart failure and with stage 5 chronic kidney disease, or end stage renal disease; E87.1 Hypo-osmolality and hyponatremia; E87.29 Other acidosis; N25.81 Secondary hyperparathyroidism of renal origin; T40.601A Poisoning by unspecified narcotics, accidental (unintentional), initial encounter; J96.02 Acute respiratory failure with hypercapnia; E11.22 Type 2 diabetes mellitus with diabetic chronic kidney disease; E11.649 Type 2 diabetes mellitus with hypoglycemia without coma; D63.1 Anemia in chronic kidney disease; N25.0 Renal osteodystrophy; I35.0 Nonrheumatic aortic (valve) stenosis; G47.00 Insomnia, unspecified; T42.4X1A Poisoning by benzodiazepines, accidental (unintentional), initial encounter; Z99.2 Dependence on renal dialysis; Z78.1 Physical restraint status; Z79.899 Other long term (current) drug therapy
CPT/HCPCS: 36415; 36600; 70450; 71045; 74018; 80048; 80053; 80076; 82140; 82805; 82947; 83735; 83880; 84100; 84443; 84484; 85025; 86706; 87040; 87340; 90935; 92523; 92610; 93005; 94002; 94003; 94640; 94660; 97129; 97161; 99285; J0696; J1100; J1610; J1630; J1644; J1815; J2250; J2310; J2405; J2704; J3010; J7040; J7613; J7644; Q5105

== ENCOUNTER 2023-06-28 15:06 | Emergency (ER) | payer OTHER ==
[2023-06-28 16:00] LABS: Absolute Lymphocytes (CBC) 0.7 K/uL (0.7-4.9); Hematocrit 33.5 % (39.6-49.0); Lymphocytes % 10.7 % (15.3-44.8); MCV 87.1 fL (80-100); MPV 7.9 fL (7.6-11.3); Platelets 215 thou/uL (152-406); RBC Red Blood Cell Count 3.85 M/uL (4.33-5.43)
--- NOTE | 2023-06-28 16:03 | RAD REPORT ---
EXAM DESCRIPTION: Lizzt Single View06/28/2023 3:41 pm CLINICAL HISTORY: CHEST PAIN COMPARISON: Chest Single View dated 05/23/2023; Abdomen 1 View (KUB) dated 05/21/2023; Chest Single Vi ew dated 05/21/2023; Chest Single View dated 05/21/2023 TECHNIQUE: Portable AP view of the chest. FINDINGS: The lungs are clear. No pneumothorax or effusion. The cardiomediastinal contours are unre markable. IMPRESSION: No acute cardiopulmonary process.
[2023-06-28 16:17] LABS: Protime INR 0.79
[2023-06-28 16:33] LABS: Albumin 4.1 g/dL (3.4-5.0); Bilirubin Direct 0.2 mg/dL (0-0.2); Bilirubin Indirect, Calculated 0.2 mg/dL (0.2-0.8); Bilirubin Total 0.4 mg/dL (0.2-1.0); Protein, Total 7.9 g/dL (6.4-8.2); Troponin High Sensitivity 21.9 pg/mL (<58.9)
[2023-06-28 16:36] LABS: Magnesium 2.8 mg/dL (1.6-2.4); Potassium 3.9 mEq/L (3.5-5.1)
--- NOTE | 2023-06-28 17:17 | EDPHYS ---
Physician Documentation [facility] Name: Alex Cagle Age: 62 yrs Sex: Male : 1960 Arrival Date: 06/28/2023 Time: 15:06 Bed 13 Private MD: ED Physician Jordan Lemus HPI: 06/28 17:31 This 62 yrs old Male presents to ER via EMS with complaints of body aches. sb4 17:31 Onset: The symptoms/episode began/occurred this morning. Associated signs and symptoms: sb4 Pertinent positives: sore throat, Pertinent negatives: chest pain, shortness of breath, vomiting. Modifying factors: The patient symptoms are alleviated by nothing, the patient symptoms are aggravated by nothing. The patient has not experienced similar symptoms in the past. The patient has been recently been admitted at [facility], was discharged last month. patient states he started feeling unwell this morning- body aches and sore throat. he completed dialysis today but the staff thought he was not acting like himself and called EMS. Historical: - Allergies: 15:57 NKA; kc6 - PMHx: 15:57 CHF; Diabetes - NIDDM; ESRD; Hypertension; insomnia; kc6 - PSHx: 15:57 bilateral knee repairs; R shoulder; kc6 - Immunization history:: Adult Immunizations up to date. - Social history:: Smoking status: Patient denies any tobacco usage or history of. ROS: 17:31 Cardiovascular: Negative for chest pain, palpitations, and edema, sb4 17:31 Constitutional: Positive for body aches, malaise, 17:31 ENT: Positive for sore throat, 17:31 All other systems are negative, Exam: 17:31 Constitutional: This is a well developed, well nourished patient who is awake, alert, sb4 and in no acute distress. Head/Face: Normocephalic, atraumatic. Eyes: Extra-ocular motions intact. Periorbital areas with no swelling, redness, or edema. ENT: Mucous membranes moist. Cardiovascular: Regular rate and rhythm with a normal S1 and S2. Respiratory: Lungs have equal breath sounds bilaterally, clear to auscultation and percussion. No rales, rhonchi or wheezes noted. No increased work of breathing, no retractions or nasal flaring. Abdomen/GI: Soft, non-tender, no distension. Skin: Warm, dry with normal turgor. Normal color with no rashes, no lesions, and no evidence of cellulitis. MS/ Extremity: Pulses equal, no cyanosis. Neurovascular intact. Full, normal range of motion. Neuro: Awake and alert, GCS 15, oriented to person, place, time, and situation. Motor strength 5/5 in all extremities. Sensory grossly intact. Vital Signs: 15:15 BP 152 / 84; Pulse 75; Resp 16 S; Temp 97.9(O); Pulse Ox 100% on R/A; Weight 99.34 kg kc6 (M); Height 5 ft. 7 in. (R); 18:35 BP 148 / 90; Pulse 84; Resp 16 S; Pulse Ox 100% on R/A; kc6 15:15 Body Mass Index 34.30 (99.34 kg, 170.18 cm) kc6 MDM: 15:10 Patient medically screened. sb4 17:31 Differential diagnosis: viral Infection, bacterial infection, URI, bronchitis, sb4 pneumonia. Data reviewed: vital signs, nurses notes, EMS record, old medical records, prior admission notes, rad studies, and labs lab test result(s), EKG, radiologic studies, and as a result, I will discharge patient. Consideration of Admission/Observation Escalation of care including admission/observation considered. Care significantly affected by the following chronic conditions: Diabetes, Hypertension, Congestive Heart Failure, Chronic Kidney Disease. Counseling: I had a detailed discussion with the patient and/or guardian regarding the historical points, exam findings, and any diagnostic results supporting the discharge/admit diagnosis, the presence of at least one elevated blood pressure reading (>120/80) during this emergency department visit, lab results, radiology results, to return to the emergency department if symptoms worsen or persist or if there are any questions or concerns that arise at home. ED course: symptoms likely viral in origin. advised that he may have covid or flu but is not yet testing positive as the symptoms just began. O2 has been satisfactory on room air, chest xray is clear, no chest pain. he is awake, alert, oriented x 4, answering questions appropriately. he is safe for discharge. strict return precautions given. he understands. 06/28 15:11 Order name: Basic Metabolic Panel; Complete Time: 16:38 sb4 09/20 15:11 Order name: CBC with Diff; Complete Time: 16:02 sb4 06/28 15:11 Order name: LFT's; Complete Time: 16:38 sb4 06/28 15:11 Order name: Magnesium; Complete Time: 16:38 sb4 06/28 15:11 Order name: NT PRO-BNP; Complete Time: 16:38 sb4 06/28 15:11 Order name: PT-INR; Complete Time: 16:21 sb4 06/28 15:11 Order name: Troponin HS; Complete Time: 16:38 sb4 06/28 15:11 Order name: COVID-19 SARS RT PCR; Complete Time: 17:07 sb4 06/28 15:11 Order name: Flu; Complete Time: 16:35 sb4 06/28 15:11 Order name: Strep sb4 06/28 16:19 Order name: Throat Culture EDWV 06/28 15:11 Order name: XRAY Chest (1 view); Complete Time: 16:07 sb4 06/28 15:11 Order name: EKG; Complete Time: 15:12 sb4 06/28 15:11 Order name: Cardiac monitoring; Complete Time: 15:36 sb4 06/28 15:11 Order name: EKG - Nurse/Tech; Complete Time: 15:36 sb4 06/28 15:11 Order name: Labs collected and sent; Complete Time: 15:55 sb4 06/28 15:11 Order name: O2 Per Protocol; Complete Time: 15:36 sb4 06/28 15:11 Order name: O2 Sat Monitoring; Complete Time: 15:36 sb4 EC:50 Rate is 74 beats/min. Rhythm is regular. CO interval is normal at 194 msec. QRS sb4 interval is normal at 92 msec. QT interval is prolonged at [address] changes noted. Clinical impression: Abnormal EKG without significant change. Interpreted by me. Reviewed by me. Administered Medications: 17:21 CANCELLED (Physician Discretion): fentanyl (pf)50 mcg IVP once sb4 17:39 Drug: Hydrocodone-Acetaminophen PO (7.5 mg-325 mg) 1 tabs PO once Route: PO; kc6 18:34 Follow up: Response: No adverse reaction; Pain is decreased; RASS: Alert and Calm (0) kc6 Disposition: 21:26 Co-signature as Attending Physician, Jordan Lemus MD I reviewed the patient's care rt provided by the Advanced Practice Provider and agree with the diagnosis and treatment plan. Disposition Summary: 06/28/23 17:17 Discharge Ordered Notes: Location: Home sb4 Problem: new sb4 Symptoms: are unchanged sb4 Condition: Stable sb4 Diagnosis - Other malaise and fatigue sb4 - End stage renal disease sb4 Followup: sb4 - With: Emergency Department - When: - Reason: Trouble breathing, Worsening of condition Discharge Instructions: - Discharge Summary Sheet sb4 - Viral Illness, Adult sb4 Forms: - Medication Reconciliation Form sb4 - Thank You Letter sb4 - Antibiotic Education sb4 - Prescription Opioid Use sb4 - Patient Portal Instructions sb4 - Leadership Thank You Letter sb4 Signatures: Dispatcher [employer] Jessica Jay, RN RN kc6 Adrienne Sky PA-C PA-C sb4 Jordan Lemus MD MD rt Corrections: (The following items were deleted from the chart) 15:51 15:50 Rate is 74 beats/min. Rhythm is regular. CO interval is normal at 194 msec. QRS sb4 interval is normal at 92 msec. QT interval is prolonged at 430 msec. sb4 17:15 15:11 IV Saline Lock ordered. sb4 kc6 17:21 17:18 fentaNYL (PF) IVP 50 mcg IVP once ordered. sb4 sb4
--- NOTE | 2023-06-28 17:17 | ER ---
Nurse's Notes [facility] Name: Alex Cagle Age: 62 yrs Sex: Male : 1960 Arrival Date: 06/28/2023 Time: 15:06 Bed 13 Private MD: Diagnosis: Other malaise and fatigue;End stage renal disease Presentation: 06/28 15:15 Chief complaint: EMS states: pt completed his dialysis session today when he reports kc6 body aches and sore throat. pt states he woke up not feeling well this AM. BGL en route 107. 15:15 Coronavirus screen: At this time, the client does not indicate any symptoms associated kc6 with coronavirus-19. Ebola Screen: No symptoms or risks identified at this time. Initial Sepsis Screen: Does the patient meet any 2 criteria? No. Patient's initial sepsis screen is negative. Does the patient have a suspected source of infection? No. Patient's initial sepsis screen is negative. Risk Assessment: Do you want to hurt yourself or someone else? Patient reports no desire to harm self or others. Onset of symptoms was June 28, 2023. 15:15 Method Of Arrival: EMS: [facility] kc6 15:15 Acuity: DEJAN 3 kc6 Triage Assessment: 15:15 General: Appears in no apparent distress. comfortable, ill, Behavior is calm, kc6 cooperative, appropriate for age, drowsy. Pain: Denies pain. EENT: Throat is reddened bilaterally with gag reflex present. Neuro: Level of Consciousness is awake, alert, obeys commands, Oriented to person, place, time, situation, Appropriate for age. Cardiovascular: Capillary refill < 3 seconds Dialysis shunt: in the left arm, with no erythema, with no edema, no bleeding noted. Respiratory: Airway is patent Trachea midline Respiratory effort is even, unlabored, Respiratory pattern is regular, symmetrical. GI: No signs and/or symptoms were reported involving the gastrointestinal system. : No signs and/or symptoms were reported regarding the genitourinary system. Derm: No signs and/or symptoms reported regarding the dermatologic system. Skin is intact, is healthy with good turgor, Skin is pink, warm \T\ dry. Musculoskeletal: No signs and/or symptoms reported regarding the musculoskeletal system. Circulation, motion, and sensation intact. Capillary refill < 3 seconds, Range of motion: intact in all extremities. Historical: - Allergies: 15:57 NKA; kc6 - PMHx: 15:57 CHF; Diabetes - NIDDM; ESRD; Hypertension; insomnia; kc6 - PSHx: 15:57 bilateral knee repairs; R shoulder; kc6 - Immunization history:: Adult Immunizations up to date. - Social history:: Smoking status: Patient denies any tobacco usage or history of. Screenin:15 [facility] ED Fall Risk Assessment (Adult) History of falling in the last 3 months, kc6 including since admission No falls in past 3 months (0 pts) Confusion or Disorientation No (0 pts) Intoxicated or Sedated No (0 pts) Impaired Gait No (0 pts) Mobility Assist Device Used No (0 pt) Altered Elimination Yes (1 pt) Score/Fall Risk Level 0 - 2 = Low Risk. Abuse screen: Denies threats or abuse. Denies injuries from another. Nutritional screening: No deficits noted. Tuberculosis screening: No symptoms or risk factors identified. Assessment: 15:15 Reassessment: please see triage assessment. [facility] 16:15 Reassessment: Patient appears in no apparent distress at this time. No changes from [facility] previously documented assessment. Patient and/or family updated on plan of care and expected duration. Pain level reassessed. Patient is alert, oriented x 3, equal unlabored respirations, skin warm/dry/pink. 17:15 Reassessment: Patient appears in no apparent distress at this time. No changes from [facility] previously documented assessment. Patient and/or family updated on plan of care and expected duration. Pain level reassessed. Patient is alert, oriented x 3, equal unlabored respirations, skin warm/dry/pink. 17:43 Reassessment: d/c pending ride home. called pts , stated she does not have a [facility] vehicle but will contact their daughter to come get the pt. she will let me know the ETA. 17:45 Reassessment: pts called back. stated daughter gets off work at 1800 and will come [facility] pickle processor pt after that. 18:35 Reassessment: Patient appears in no apparent distress at this time. No changes from [facility] previously documented assessment. Patient and/or family updated on plan of care and expected duration. Pain level reassessed. Patient is alert, oriented x 3, equal unlabored respirations, skin warm/dry/pink. Vital Signs: 15:15 BP 152 / 84; Pulse 75; Resp 16 S; Temp 97.9(O); Pulse Ox 100% on R/A; Weight 99.34 kg kc6 (M); Height 5 ft. 7 in. (R); 18:35 BP 148 / 90; Pulse 84; Resp 16 S; Pulse Ox 100% on R/A; kc6 15:15 Body Mass Index 34.30 (99.34 kg, 170.18 cm) kc6 ED Course: 15:10 Patient arrived in ED. ll1 15:10 Adrienne Sky PA-C is PHCP. sb4 15:10 Jordan Lemus MD is Attending Physician. sb4 15:15 Arm band placed on. kc6 15:15 Patient has correct armband on for positive identification. Placed in gown. Bed in low kc6 position. Call light in reach. Side rails up X2. Client placed on continuous cardiac and pulse oximetry monitoring. NIBP monitoring applied. 15:19 Jessica Alex RN is Primary Nurse. kc6 15:30 Missed attempt(s): 20 gauge in right antecubital area. kc6 15:43 XRAY Chest (1 view) In Process Unspecified. EDMS 15:57 Triage completed. kc6 18:35 No provider procedures requiring assistance completed. Patient did not have IV access kc6 during this emergency room visit. Administered Medications: 17:21 CANCELLED (Physician Discretion): fentanyl (pf)50 mcg IVP once sb4 17:39 Drug: Hydrocodone-Acetaminophen PO (7.5 mg-325 mg) 1 tabs PO once Route: PO; kc6 18:34 Follow up: Response: No adverse reaction; Pain is decreased; RASS: Alert and Calm (0) kc6 Medication: 18:35 VIS not applicable for this client. kc6 Outcome: 17:17 Discharge ordered by . sb4 18:35 Discharged to home via wheelchair, with family, kc6 18:35 Condition: stable 18:35 Discharge instructions given to patient, Instructed on discharge instructions, follow up and referral plans. Demonstrated understanding of instructions, follow-up care, 18:35 Patient left the ED. kc6 Signatures: Dispatcher [employer] EDJose Tirado RN RN ll1 Jessica Alex RN RN kc6 Adrienne Sky, PA-C PA-C sb4
[2023-06-28] MEDS ORDERED: HYDROCODONE/APAP 7.5/325 MG TAB ONE (17:48)
[2023-06-28 19:46] VITALS: O2SAT 100
[2023-06-28 19:48] VITALS: BP 152/84; TEMP 97.9
== END 2023-06-28 18:35 | disposition home or self-care (01) ==
LOC: ER 15:06
DX: R53.81 Other malaise (principal); R53.83 Other fatigue; E11.22 Type 2 diabetes mellitus with diabetic chronic kidney disease; I13.2 Hypertensive heart and chronic kidney disease with heart failure and with stage 5 chronic kidney disease, or end stage renal disease; I50.9 Heart failure, unspecified; N18.6 End stage renal disease; Z99.2 Dependence on renal dialysis; Z20.822 Contact with and (suspected) exposure to COVID-19
CPT/HCPCS: 36415; 71045; 80048; 80076; 83735; 83880; 84484; 85025; 85610; 87070; 87081; 87635; 87804

== ENCOUNTER 2023-11-27 00:42 | Observation (INO) | payer OTHER ==
[2023-11-27] MEDS ORDERED: ONDANSETRON 4 MG/2 ML VIAL ONE (02:10)
[2023-11-27] MEDS ORDERED: MORPHINE 4 MG/ML SYR ONE (02:11)
[2023-11-27] MEDS ORDERED: NITROGLYCERIN 1 GM PKT TD ONE (02:11)
[2023-11-27] MEDS ORDERED: HYDRALAZINE HCL 25 MG TABLET ONE (02:50)
[2023-11-27 02:53] LABS: Protime INR 0.91
[2023-11-27 02:54] LABS: Absolute Lymphocytes (CBC) 0.9 K/uL (0.7-4.9); Hematocrit 24.2 % (39.6-49.0); Lymphocytes % 13.7 % (15.3-44.8); MCV 87.7 fL (80-100); MPV 7.4 fL (7.6-11.3); Platelets 207 thou/uL (152-406); RBC Red Blood Cell Count 2.76 M/uL (4.33-5.43)
[2023-11-27 03:08] LABS: Albumin 3.4 g/dL (3.4-5.0); Bilirubin Direct 0.1 mg/dL (0-0.2); Bilirubin Indirect, Calculated 0.2 mg/dL (0.2-0.8); Bilirubin Total 0.3 mg/dL (0.2-1.0); Magnesium 2.6 mg/dL (1.6-2.4); Potassium 4.7 mEq/L (3.5-5.1); Protein, Total 6.5 g/dL (6.4-8.2)
--- NOTE | 2023-11-27 03:43 | EDPHYS ---
Physician Documentation [facility] Name: Alex Cagle Age: 63 yrs Sex: Male : 1960 Arrival Date: 11/27/2023 Time: 00:42 Bed 13 Private MD: ED Physician Robles Kennedy HPI: 11/27 00:59 This 63 yrs old Male presents to ER via Unassigned with complaints of sp4 Shortness Of Breath, dialysis patient/ fluid over load. 01:19 63-year-old male with history of end-stage disease use on hemodialysis history of sp4 diabetes, congestive heart failure, insomnia, patient within the last dialysis this past Monday.. Patient presents because of worsening shortness of breath, dyspnea on exertion, orthopnea. Patient states he feels he is in fluid overload and is feeling unwell and short of breath. Denied chest pain. Historical: - Allergies: 01:03 NKA; pf1 - PMHx: 01:03 CHF; Diabetes - NIDDM; ESRD; Hypertension; insomnia; pf1 01:04 dialysis on M/W/F; pf1 - PSHx: 01:03 bilateral knee repairs; R shoulder; pf1 - Immunization history:: Adult Immunizations up to date, Client reports receiving the 1st dose of the Covid vaccine, Last tetanus immunization: < 10 years ago Flu vaccine is up to date. - Social history:: Smoking status: Patient denies any tobacco usage or history of. Patient/guardian denies using alcohol, street drugs. ROS: 01:19 Constitutional: Negative for fever, chills, and weight loss, positive dyspnea on sp4 exertion, positive dyspnea at rest, positive orthopnea. 01:19 All other systems are negative, Exam: 01:19 Constitutional: This is a well developed, well nourished patient who is awake, alert, sp4 overweight male, ill-appearing, left arm dialysis fistula with palpable thrill, generalized edema. Head/Face: Normocephalic, atraumatic. Eyes: Pupils equal round and reactive to light, extra-ocular motions intact. Lids and lashes normal. Conjunctiva and sclera are not injected. Cornea within normal limits. Periorbital areas with no swelling, redness, or edema. ENT: Nares patent. No nasal discharge, no septal abnormalities noted. Tympanic membranes are normal and external auditory canals are clear. Oropharynx with no redness, swelling, or masses, exudates, or evidence of obstruction, uvula midline. Mucous membranes moist. Neck: Trachea midline, no thyromegaly or masses palpated, and no cervical lymphadenopathy. Supple, full range of motion without nuchal rigidity, or vertebral point tenderness. Chest/axilla: Normal chest wall appearance and motion. Nontender with no deformity. No lesions are appreciated. Cardiovascular: Regular rate and rhythm with a normal S1 and S2. No gallops, murmurs, or rubs. Normal PMI, No pulse deficits, left arm dialysis fistula with palpable thrill, generalized edema positive JVD Respiratory: Lungs have equal breath sounds bilaterally, clear to auscultation and percussion. No rales, rhonchi or wheezes noted. No increased work of breathing, no retractions or nasal flaring. Abdomen/GI: Soft, with normal bowel sounds. No distension or tympany. No guarding or rebound. No evidence of tenderness throughout. Back: No spinal tenderness. No costovertebral tenderness. Skin: Warm, dry with normal turgor. Normal color with no rashes, no lesions, and no evidence of cellulitis. MS/ Extremity: Pulses equal, no cyanosis. Neurovascular intact. Full, normal range of motion. Neuro: Awake and alert, GCS 15, oriented to person, place, time, and situation. Cranial nerves II-XII grossly intact. Motor strength 5/5 in all extremities. Sensory grossly intact. Psych: Awake, alert, with orientation to person, place and time. Behavior, mood, and affect are within normal limits Vital Signs: 00:56 BP 183 / 86; Pulse 73; Resp 20; Temp 97.6; Pulse Ox 100% on R/A; Weight 90.72 kg; pf1 Height 5 ft. 7 in. ; Pain 9/10; 02:00 BP 172 / 84; Pulse 72; Resp 20; Pulse Ox 100% on R/A; pf1 02:30 BP 161 / 94; Pulse 70; Resp 18; Pulse Ox 100% ; pf1 02:45 BP 155 / 84; Pulse 79; Resp 16; Pulse Ox 98% on R/A; Pain 8/10; pf1 03:00 BP 164 / 88; Pulse 68; Resp 18; Pulse Ox 100% on R/A; pf1 04:00 BP 143 / 67; Pulse 66; Resp 18; Pulse Ox 100% on R/A; Pain 8/10; pf1 05:00 BP 146 / 70; Pulse 70; Resp 16; Pulse Ox 100% on R/A; Pain 9/10; pf1 06:00 BP 162 / 90; Pulse 73; Resp 18; Temp 97.9; Pulse Ox 99% on R/A; Pain 9/10; pf1 00:56 Body Mass Index 31.32 (90.72 kg, 170.18 cm) pf1 00:56 Pain Scale: Adult pf1 02:45 Pain Scale: Adult pf1 04:00 Pain Scale: Adult pf1 05:00 Pain Scale: Adult pf1 06:00 Pain Scale: Adult pf1 MDM: 01:00 Patient medically screened. sp4 03:43 Differential diagnosis: Anemia Anxiety Reaction asthma, Bronchitis CHF exacerbation, sp4 Chronic Obstructive Pulmonary Disease pneumonia, Psychogenic. Data reviewed: vital signs, nurses notes, old medical records, lab test result(s), EKG, radiologic studies, plain films. ED course: EXAM DESCRIPTION: Chest Single View CLINICAL HISTORY:63 years Male, CHEST PAIN Comparison: Chest radiograph dated 06/28/2023 FINDINGS: No focal lung consolidation. No pleural effusion. No pneumothorax. Cardiomediastinal silhouette is unchanged. No acute osseous abnormality. IMPRESSION: No acute cardiopulmonary disease.. 11/27 00:59 Order name: Basic Metabolic Panel; Complete Time: 03:14 4 11/27 00:59 Order name: CBC with Diff; Complete Time: 03:06 4 11/27 00:59 Order name: LFT's; Complete Time: 03:14 sp4 11/27 00:59 Order name: Magnesium; Complete Time: 03:14 sp4 11/27 00:59 Order name: NT PRO-BNP; Complete Time: 03:14 4 11/27 00:59 Order name: PT-INR; Complete Time: 03:06 4 11/27 00:59 Order name: Troponin HS; Complete Time: 03:14 4 11/27 00:59 Order name: XRAY Chest (1 view) sp4 11/27 00:59 Order name: EKG; Complete Time: 01:02 4 11/27 04:16 Order name: CONS Physician Consult EDWA 11/27 00:59 Order name: Cardiac monitoring; Complete Time: 01:44 sp4 11/27 00:59 Order name: EKG - Nurse/Tech; Complete Time: 01:16 sp4 11/27 00:59 Order name: IV Saline Lock; Complete Time: 02:04 sp4 11/27 00:59 Order name: Labs collected and sent; Complete Time: 02:04 sp4 11/27 00:59 Order name: O2 Per Protocol; Complete Time: : sp4 11/27 00:59 Order name: O2 Sat Monitoring; Complete Time: :44 sp4 Administered Medications: 02:10 Drug: Ondansetron IVP 4 mg IVP once; over 2 minutes Route: IVP; Site: right antecubital;pf1 03:00 Follow up: Response: No adverse reaction; Marked relief of symptoms pf1 02:10 Drug: morphine IVP or IV 4 mg IVP once over 4 mins Route: IVP; Infused Over: 4 mins; pf1 Site: right antecubital; 03:04 Follow up: Response: No adverse reaction; Marked relief of symptoms; Pain is decreased; pf1 RASS: Alert and Calm (0) 02:14 Drug: Nitroglycerin Transdermal Ointment 2 % 1 inches Transdermal once Route: pf1 Transdermal; Site: anterior chest wall; 03:00 Follow up: Response: No adverse reaction; Marked relief of symptoms; Blood pressure is pf1 lowered 02:45 Drug: HydrALAZINE PO 50 mg PO once Route: PO; pf1 03:05 Follow up: Response: No adverse reaction; Marked relief of symptoms; Blood pressure is pf1 lowered 04:10 Drug: diphenhydrAMINE IVP 25 mg IVP once Route: IVP; Site: right antecubital; pf1 05:00 Follow up: Response: No adverse reaction; Marked relief of symptoms pf1 Disposition Summary: 11/27/23 03:43 Hospitalization Ordered Notes: Hospitalization Status: Observation sp4 Provider: Lamberto Ascencio spRon Condition: Stable sp4 Problem: new sp4 Symptoms: have improved sp4 Bed/Room Type: Standard sp4 Location: Telemetry/MedSurg (observation)(11/27/23 05:29) jb4 Room Assignment: [facility](11/27/23 05:29) jb4 Diagnosis - Fluid overload, unspecified sp4 - ESRD on hemodialysis , CHF exacerbation sp4 Forms: - Medication Reconciliation Form sp4 - SBAR form sp4 - Leadership Thank You Letter sp4 Signatures: Dispatcher [employer] Kishan Weber RN RN jb4 Meg Navas RN RN pf1 Robles Kennedy MD MD sp4 Corrections: (The following items were deleted from the chart) 04:49 03:43 Telemetry/MedSurg (observation) sp4 jb4 04:49 03:43 sp4 jb4 05:29 04:49 [facility] ER HOLD jb4 jb4 05:29 04:49 ERHOLD- jb4 jb4
--- NOTE | 2023-11-27 03:43 | ER ---
Nurse's Notes [facility] Name: Alex Cagle Age: 63 yrs Sex: Male : 1960 Arrival Date: 11/27/2023 Time: 00:42 Bed 13 Private MD: Diagnosis: Fluid overload, unspecified;ESRD on hemodialysis , CHF exacerbation Presentation: 11/27 00:56 Chief complaint: Patient states: SOB with fluid volume overload with facial pf1 swelling,onset Monday, also C/O epigastric pain of 9,onset 1999 with diarrhea for 1 week. Patient stated goes to dialysis on , went to dialysis on Monday, but missed Monday. Coronavirus screen: Client denies travel out of the [place] in the last 14 days. At this time, the client does not indicate any symptoms associated with coronavirus-19. Ebola Screen: Patient negative for fever greater than or equal to 101.5 degrees Fahrenheit, and additional compatible Ebola Virus Disease symptoms. Initial Sepsis Screen: Does the patient meet any 2 criteria? No. Patient's initial sepsis screen is negative. Does the patient have a suspected source of infection? No. Patient's initial sepsis screen is negative. Risk Assessment: Do you want to hurt yourself or someone else? Patient reports no desire to harm self or others. 00:56 Method Of Arrival: Ambulatory pf1 00:56 Acuity: DEJAN 3 pf1 Historical: - Allergies: 01:03 NKA; pf1 - PMHx: 01:03 CHF; Diabetes - NIDDM; ESRD; Hypertension; insomnia; pf1 01:04 dialysis on ; pf1 - PSHx: 01:03 bilateral knee repairs; R shoulder; pf1 - Immunization history:: Adult Immunizations up to date, Client reports receiving the 1st dose of the Covid vaccine, Last tetanus immunization: < 10 years ago Flu vaccine is up to date. - Social history:: Smoking status: Patient denies any tobacco usage or history of. Patient/guardian denies using alcohol, street drugs. Screenin:50 [facility] ED Fall Risk Assessment (Adult) History of falling in the last 3 months, pf1 including since admission No falls in past 3 months (0 pts) Confusion or Disorientation No (0 pts) Intoxicated or Sedated No (0 pts) Impaired Gait No (0 pts) Mobility Assist Device Used No (0 pt) Altered Elimination No (0 pt) Score/Fall Risk Level 0 - 2 = Low Risk Oriented to surroundings, Maintained a safe environment, Educated pt \T\ family on fall prevention, incl call for assistance when getting out of bed, Assessed \T\ reinforced patient's understanding of fall precautions, Provided non-skid footwear, Hourly rounding (assess needs \T\ fall precautionary measures) done, Used ambulatory aids as needed (educated on \T\ assisted with), Used gait belt as appropriate. Abuse screen: Denies threats or abuse. Nutritional screening: No deficits noted. Tuberculosis screening: No symptoms or risk factors identified. Assessment: 01:00 General: Appears in no apparent distress. comfortable, well groomed, well developed, pf1 Behavior is calm, cooperative, appropriate for age, quiet. 01:00 Pain: Complains of pain in abdomen, right foot, left foot, right leg and left leg Pain pf1 currently is 9 out of 10 on a pain scale. Neuro: No deficits noted. Level of Consciousness is awake, alert, obeys commands, Oriented to person, place, time, situation. Cardiovascular: No deficits noted. Capillary refill < 3 seconds Patient's skin is warm and dry. Respiratory: Reports shortness of breath on exertion Airway is patent Respiratory effort is even, unlabored, Respiratory pattern is regular, symmetrical, Breath sounds are clear bilaterally. 01:00 GI: Reports diarrhea, epigastric pain. pf1 01:00 : Reports dialysis access to left upper arm. EENT: No deficits noted. No signs and/or pf1 symptoms were reported regarding the EENT system. Derm: Reports itching, generalized itching with facial swelling. 02:00 Reassessment: Patient appears in no apparent distress at this time. Patient and/or pf1 family updated on plan of care and expected duration. Pain level reassessed. Patient is alert, oriented x 3, equal unlabored respirations, skin warm/dry/pink. Patient states symptoms have improved. 02:39 Reassessment: Sofiya (daughter) [phone] and Tom (daughter) [phone]. pf1 03:00 Reassessment: Patient appears in no apparent distress at this time. Patient and/or pf1 family updated on plan of care and expected duration. Pain level reassessed. Patient is alert, oriented x 3, equal unlabored respirations, skin warm/dry/pink. Patient states feeling better. Patient states symptoms have improved. 03:21 Reassessment: Patient appears in no apparent distress at this time. Patient and/or pf1 family updated on plan of care and expected duration. Pain level reassessed. Patient is alert, oriented x 3, equal unlabored respirations, skin warm/dry/pink. Patient states symptoms have improved. 04:30 Reassessment: Patient appears in no apparent distress at this time. Patient and/or pf1 family updated on plan of care and expected duration. Pain level reassessed. Patient is alert, oriented x 3, equal unlabored respirations, skin warm/dry/pink. Patient states symptoms have improved. 06:02 Reassessment: attempted patient report, nurse to call back. 1 Vital Signs: 00:56 BP 183 / 86; Pulse 73; Resp 20; Temp 97.6; Pulse Ox 100% on R/A; Weight 90.72 kg; pf1 Height 5 ft. 7 in. ; Pain 9/10; 02:00 BP 172 / 84; Pulse 72; Resp 20; Pulse Ox 100% on R/A; pf1 02:30 BP 161 / 94; Pulse 70; Resp 18; Pulse Ox 100% ; pf1 02:45 BP 155 / 84; Pulse 79; Resp 16; Pulse Ox 98% on R/A; Pain 8/10; pf1 03:00 BP 164 / 88; Pulse 68; Resp 18; Pulse Ox 100% on R/A; pf1 04:00 BP 143 / 67; Pulse 66; Resp 18; Pulse Ox 100% on R/A; Pain 8/10; pf1 05:00 BP 146 / 70; Pulse 70; Resp 16; Pulse Ox 100% on R/A; Pain 9/10; pf1 06:00 BP 162 / 90; Pulse 73; Resp 18; Temp 97.9; Pulse Ox 99% on R/A; Pain 9/10; pf1 00:56 Body Mass Index 31.32 (90.72 kg, 170.18 cm) pf1 00:56 Pain Scale: Adult pf1 02:45 Pain Scale: Adult pf1 04:00 Pain Scale: Adult pf1 05:00 Pain Scale: Adult pf1 06:00 Pain Scale: Adult pf1 ED Course: 00:46 Patient arrived in ED. gm2 00:59 Robles Kennedy MD is Attending Physician. sp4 01:00 Patient has correct armband on for positive identification. Bed in low position. Call pf1 light in reach. Side rails up X 1. 01:00 Arm band placed on left wrist. pf1 01:02 Triage completed. pf1 01:43 XRAY Chest (1 view) In Process Unspecified. EDMS 01:51 No provider procedures requiring assistance completed. pf1 02:00 Inserted saline lock: 22 gauge in right antecubital area, using aseptic technique. vc1 Blood collected. 02:04 Basic Metabolic Panel Sent. vc1 02:04 CBC with Diff Sent. vc1 02:04 LFT's Sent. vc1 02:04 Magnesium Sent. vc1 02:04 NT PRO-BNP Sent. vc1 02:04 PT-INR Sent. vc1 02:04 Troponin HS Sent. vc1 03:40 Lamberto Ascencio MD is Hospitalizing Provider. sp4 06:03 Provided Education on: need for admit. pf1 06:03 Patient admitted, IV remains in place. pf1 Administered Medications: 02:10 Drug: Ondansetron IVP 4 mg IVP once; over 2 minutes Route: IVP; Site: right antecubital;pf1 03:00 Follow up: Response: No adverse reaction; Marked relief of symptoms pf1 02:10 Drug: morphine IVP or IV 4 mg IVP once over 4 mins Route: IVP; Infused Over: 4 mins; pf1 Site: right antecubital; 03:04 Follow up: Response: No adverse reaction; Marked relief of symptoms; Pain is decreased; pf1 RASS: Alert and Calm (0) 02:14 Drug: Nitroglycerin Transdermal Ointment 2 % 1 inches Transdermal once Route: pf1 Transdermal; Site: anterior chest wall; 03:00 Follow up: Response: No adverse reaction; Marked relief of symptoms; Blood pressure is pf1 lowered 02:45 Drug: HydrALAZINE PO 50 mg PO once Route: PO; pf1 03:05 Follow up: Response: No adverse reaction; Marked relief of symptoms; Blood pressure is pf1 lowered 04:10 Drug: diphenhydrAMINE IVP 25 mg IVP once Route: IVP; Site: right antecubital; pf1 05:00 Follow up: Response: No adverse reaction; Marked relief of symptoms pf1 Medication: 06:03 VIS not applicable for this client. pf1 Outcome: 03:43 Decision to Hospitalize by Provider. sp4 04:49 Admitted to ER Hold. Please see [facility] for further documentation. pf1 04:49 Condition: stable pf1 04:49 Instructed on the need for admit, Demonstrated understanding of instructions, 06:17 Admitted to Med/surg accompanied by tech, via wheelchair, room 231, with chart, Report pf1 called to KATIANA Murillo 06:27 Patient left the ED. pf1 Signatures: Dispatcher [employer] EDMS Nury Mccartney RN RN vc1 Meg Navas RN RN pf1 Robles Kennedy MD MD sp4 Sudha Valdez gm2 Corrections: (The following items were deleted from the chart) 01:51 01:50 Patient has correct armband on for positive identification. Bed in low position. pf1 Call light in reach. Side rails up X 1. pf1 03:01 01:00 Respiratory: Reports shortness of breath on exertion Airway is patent Respiratory pf1 effort is even, unlabored, Respiratory pattern is regular, symmetrical, pf1 06:18 06:17 Admitted to Med/surg accompanied by tech, via wheelchair, room , pf1 pf1
[2023-11-27] MEDS ORDERED: DIPHENHYDRAMINE 50 MG/ML VIAL ONE (04:04)
[2023-11-27] MEDS ORDERED: ACETAMINOPHEN 325 MG TABLET PO PRN (04:09)
[2023-11-27] MEDS ORDERED: IPRATROPIUM BROM 0.5MG/2.5ML NEB PRN (04:09)
[2023-11-27] MEDS ORDERED: ALBUTEROL 2.5 MG/3 ML NEB SOL NEB PRN (04:09)
--- NOTE | 2023-11-27 04:15 | P.HP ---
Certification for Inpatient Patient admitted to: Observation With expected LOS: <2 Midnights Practitioner: I am a practitioner with admitting privileges, knowledge of patient current condition, hospital course, and medical plan of care. Services: Services provided to patient in accordance with Admission requirements found in Title 42 Section 412.3 of the Code of Federal Regulations Patient History Date of Service: 11/27/23 Reason for admission: Shortness of breath, volume overload. History of Present Illness: 63-year-old male patient with medical history significant for ESRD on dialysis Monday, Monday, Monday schedule, hypertension, diabetes type 2, history of anemia of chronic kidney disease who was evaluated for episode of worsening shortness of breath. He had his last dialysis 2 days ago and he was evaluated in the for complaint of shortness of breath. Chest x-ray was concerning for volume overload and patient was admitted for inpatient management of volume i ssue with diuresis. He did describe some mild chest chest discomfort but no overt chest pain. No fever, chills, rigor, nausea, vomiting reported. Allergies No Known Allergies Allergy (Verified 01/01/21 21:09) Home Medications: Folic Acid/Vit B Complex and C [Fauzia-Conor Tablet] 1 tab PO DAILY 04/08/22 Sucroferric Oxyhydroxide [Velphoro] 500 mg PO TIDWMHS 04/08/22 Lisinopril [Zestril] 20 mg PO DAILY 03/22/23 oxyBUTYnin chloride [Ditropan Xl] 5 mg PO DAILY 03/22/23 Epoetin [Retacrit] 10,000 unit IV EVERY HD vial 03/24/23 Zolpidem Tartrate [Ambien*] 10 mg PO BEDTIME PRN 04/27/23 Acetaminophen with Codeine [Acetaminophen-Cod #4 Tablet] 1 tab PO QID PRN 05/23/23 Amlodipine Besylate/Benazepril [Amlodipine-Benazepril 10-20 mg] 1 cap PO TID 05/23/23 Meloxicam 7.5 mg PO DAILY 05/23/23 - Past Medical/Surgical History Diabetic: Yes -: End-stage renal disease on hemodialysis -: Hypertension -: Non-Insulin Dependent Type 2 Diabetes -: Chronic IJ blood clot -: Peritoneal dialysis port -: shoulder surgery Psychosocial/ Personal History: Patient with 5 children. - Family History Father -: Heart disease - Social History Alcohol use: No CD- Drugs: No Caffeine use: Yes Review of Systems General: Unremarkable Eyes: Unremarkable ENT: Unremarkable Respiratory: Shortness of Breath Cardiovascular: Unremarkable Gastrointestinal: Unremarkable Genitourinary: Unremarkable Musculoskeletal: Unremarkable Integumentary: Unremarkable Neurological: Unremarkable Lymphatics: Unremarkable Physical Examination - Physical Exam General: Alert, Oriented x3 HEENT: Atraumatic Neck: Supple Respiratory: Diminished Cardiovascular: Regular rate/rhythm, Normal S1 S2 Gastrointestinal: Soft and benign Musculoskeletal: No swelling Neurological: Normal speech, Normal strength at 5/5 x4 extr - Studies Laboratory Data (last 24 hrs) 11/27/23 11/27/23 11/27/23 02:00 02:00 02:00 WBC 6.80 Hgb 8.2 L Hct 24.2 L Plt Count 207 PT 10.0 INR 0.91 Sodium 129 L Potassium 4.7 BUN 87 H Creatinine 11.20 H Glucose 82 Magnesium 2.6 H Total Bilirubin 0.3 AST 8 L ALT 16 Alkaline Phosphatase 85 Assessment and Plan - Plan ESRD: Patient has dialysis 2 days ago and has volume overload. Will dialyze urgently as per nephrology recommendation. Will put on 1 liter fluid restriction. Will continue renal and phosphorus binders with meals. Hypertension: Monitor vital signs per unit protocol continue maintenance medications. Anemia of renal disease: Will continue Epogen for anemia management. Hemoglobin is 8.2. Volume overload: Management as per nephrology ultrafiltration during dialysis. Diabetes type 2: We will monitor blood sugar ACHS. Continue sliding scale insulin for glucose control. we will continue on carb restricted diet. Prophylaxis: Heparin for DVT prophylaxis. CODE STATUS: Full code Disposition: We will treat his volume overload and discharge him once cleared by nephrology service. - Advance Directives Does patient have a Living Will: No Does patient have a Durable POA for Healthcare: No
[2023-11-27 05:10] VITALS: BMI 31.3
[2023-11-27] MEDS ORDERED: HYDROCODONE/APAP 7.5/325 MG TAB ONE (05:11)
[2023-11-27] MEDS: HYDROCODONE/APAP 7.5/325 MG TAB PO ONE (05:14)
[2023-11-27 06:52] VITALS: O2SAT 99
--- NOTE | 2023-11-27 07:00 | P.PN ---
Date of Service: 11/27/23 Subjective: Physical Exam: Vitals: reviewed GEN: Alert, oriented, NAD HEENT: Normal conjunctiva, sclera anicteric CV: Regular rate & rhythm, no edema Pulm: Nonlabored respiraitons, clear bilaterally ABD: Soft, nontender, nondistended MSK: No joint tenderness Integumentary: No rashes Neuro: Normal speech, normal affect Problem List: ESRD on HD Hypertension Anemia of renal disease NIDDM2 Plan: Creatinine 11.2 on admission has MWF schedule normally - last received dialysis Friday 11/24 Nephrology consulted monitor renal function closely emergent dialysis per nephrology prn rozina Confirm home meds, restart as appropriate sliding scale insulin monitor H&H VTE: heparin sq
[2023-11-27] MEDS ORDERED: GLUCAGON 1 MG/VIAL IM PRN (07:20)
[2023-11-27] MEDS ORDERED: D50W 25 GM/50 ML SYRINGE IV PRN (07:20)
--- NOTE | 2023-11-27 07:21 | P.PN ---
Subjective Date of Service: 11/27/23 Chief Complaint: Shortness of breath, volume overload. 63-year-old end-stage renal disease ESRD on dialysis Monday, Monday, Monday schedule, presented to the emergency room reported shortness of breath - Physical Exam General: Alert, Oriented x3 HEENT: Atraumatic Neck: Supple Respiratory: Diminished Cardiovascular: Regular rate/rhythm, Normal S1 S2 Gastrointestinal: Soft and benign Musculoskeletal: No swelling Neurological: Normal speech, Normal strength at 5/5 x4 extr Review of Systems per HPI Physical Examination - Vital Signs Temperature: 97.9 F Blood Pressure: 162/90 Pulse: 73 Respirations: 18 Pulse Ox (%): 100 - Studies Laboratory Data (last 24 hrs) 11/27/23 11/27/23 11/27/23 02:00 02:00 02:00 WBC 6.80 Hgb 8.2 L Hct 24.2 L Plt Count 207 PT 10.0 INR 0.91 Sodium 129 L Potassium 4.7 BUN 87 H Creatinine 11.20 H Glucose 82 Magnesium 2.6 H Total Bilirubin 0.3 AST 8 L ALT 16 Alkaline Phosphatase 85 Assessment And Plan - Plan Assessment plan End-stage renal disease on hemodialysis Dyspnea acute on chronic respiratory failure secondary to fluid volume overload, secondary to end-stage renal disease Fluid volume overload Nephrology consult ESRD on HD MWF, [place]vated [place] [id number] Anemia secondary to chronic kidney disease, end-stage renal disease Trend H&H transfuse less than 7 11.4, 8.2 Hyponatremia Nephrology consult, hemodialysis Diabetes type 2 [id number] Accu-Cheks, sliding scale insulin History polysubstance use Full code DVT heparin Diet renal Discharge Plan: Home - Code Status/Comfort Care Code Status: Full Code Critical Care: No Time Spent Managing PTS Care (In Minutes): 35
[2023-11-27] MEDS: INSULIN REGULAR (HUMAN) 100 UNIT/ML SQ SCH (07:30)
[2023-11-27] MEDS ORDERED: D10W 125 ML IV PRN (07:31)
[2023-11-27] MEDS: HEPARIN 5000 UNIT/ML 1 ML VIAL SQ SCH (09:00)
--- NOTE | 2023-11-27 10:54 | EKG ---
Test Date: 2023-11-27 Test Time: 01:13:47 [employer]: GODFREY MEASUREMENT RESULTS: Intervals: Rate: 74 WA: 178 QRSD: 90 QT: 428 QTc: 475 [place]: P: 27 WA: 178 QRS: 85 T: 27 INTERPRETIVE STATEMENTS: Normal sinus rhythm Low voltage QRS T wave abnormality, consider inferior ischemia Abnormal ECG Compared to ECG 06/28/2023 15:35:10 Low QRS voltage now present Prolonged QT interval no longer present T-wave abnormality still present Possible ischemia still present Electronically Signed On 11-27-23 10:54:16 SENIOR QUALITY ASSURANCE SPECIALIST by Jaxon Lawson
--- NOTE | 2023-11-27 12:02 | RAD REPORT ---
EXAM DESCRIPTION: RAD - Chest Single View - 11/27/2023 1:41 am CLINICAL HISTORY: 53 years Male, CHEST PAIN COMPARISON: Chest radiograph dated 06/28/2023 FINDINGS: No focal lung consolidation. No pleural effusion. No pneumothorax. Cardiomediastinal silhouette is unchanged. No acute osseous abnormality. IMPRESSION: No acute cardiopulmonary disease. Electronically signed by: Moose Suh DO 11/27/2023 02:07 AM [employer] Due to temporary technical issues with the PACS/Fluency reporting system, reports are being signed by the in house radiologist without review as a courtesy to ensure prompt reporting. The interpreting r adiologist is fully responsible for the content of the report.
[2023-11-27] MEDS: HYDROCODONE/APAP 5/325 MG TAB PO ONE (13:24)
--- NOTE | 2023-11-27 14:36 | P.DS ---
Admission Date: 11/27/23 Discharge Date: 11/27/23 Disposition: ROUTINE DISCHARGE Discharge Condition: FAIR Reason for Admission: Shortness of breath, volume overload. Brief History of Present Illness: 63-year-old male patient with medical history significant for ESRD on dialysis Monday, Monday, Monday schedule, hypertension, diabetes type 2, history of anemia of chronic kidney disease who was evaluated for episode of worsening s hortness of breath. He had his last dialysis 2 days ago and he was evaluated in the for complaint of shortness of breath. Chest x-ray was concerning for volume overload and patient was admitted for inpatient management of volume issue with diuresis. He did describe some mild chest chest discomfort but no overt chest pain. No fever, chills, rigor, nausea, vomiting reported. - Physical Exam General: Alert, Oriented x3 HEENT: Atraumatic Neck: Supple Respiratory: Diminished Cardiovascular: Regular rate/rhythm, Normal S1 S2 Gastrointestinal: Soft and benign Musculoskeletal: No swelling Neurological: Normal speech, Normal strength at 5/5 x4 extr Hospital Course: 63-year-old male patient with a past medical history end-stage renal presented to the emergency with shortness of breath. Was noted to have fluid volume overload with chronic end-stage renal disease. Nephrology was consulted Mr. Cagle's condition improved with hemodialysis. Patient tolerating diet, stable for discharge to home with follow-up appointment with primary care physician, nephrology. PROBLEM: Fluid volume overload End-stage renal disease on hemodialysis Resume outpatient hemodialysis as previously prescribed Monday Resume appropriate home medications for hypertension, end-stage renal disease No new prescription medications Continue home medicines as previously prescribed GOAL: Clear understanding of disease process INSTRUCTIONS: Physician Discharge Instructions: -Follow-up with PCP in 1 to 2 weeks -Please call Dr. Oliveros at [phone] if any questions regarding hospital stay -Please call nursing station at [phone] if any nursing or medication questions -Return to the emergency room if symptoms worsen Diet: ADA, low sodium, renal diet Activity: Fall precautions Vital Signs/Physical Exam: Temp Pulse Resp BP Pulse Ox 96.9 F 69 17 136/67 99 11/27/23 08:00 11/27/23 08:00 11/27/23 13:24 11/27/23 08:00 02/19/24 13:24 Laboratory Data at Discharge: WBC 6.80 thou/uL (4.3-10.9) 11/27/23 02:00 Hgb 8.2 g/dL (13.6-17.9) L 11/27/23 02:00 Hct 24.2 % (39.6-49.0) L 11/27/23 02:00 Plt Count 207 thou/uL (152-406) 11/27/23 02:00 PT 10.0 SECONDS (9.5-12.5) 11/27/23 02:00 INR 0.91 11/27/23 02:00 Sodium 129 mEq/L (136-145) L 11/27/23 02:00 Potassium 4.7 mEq/L (3.5-5.1) 11/27/23 02:00 BUN 87 mg/dL (7-18) H 11/27/23 02:00 Creatinine 11.20 mg/dL (0.70-1.30) H 11/27/23 02:00 Glucose 82 mg/dL (74-106) 11/27/23 02:00 Magnesium 2.6 mg/dL (1.6-2.4) H 11/27/23 02:00 Total Bilirubin 0.3 mg/dL (0.2-1.0) 11/27/23 02:00 AST 8 U/L (15-37) L 11/27/23 02:00 ALT 16 U/L (16-61) 11/27/23 02:00 Alkaline Phosphatase 85 U/L (45-117) 11/27/23 02:00 Home Medications: Folic Acid/Vit B Complex and C [Fauzia-Conor Tablet] 1 tab PO DAILY 04/08/22 Sucroferric Oxyhydroxide [Velphoro] 500 mg PO TIDWMHS 04/08/22 Lisinopril [Zestril] 20 mg PO DAILY 03/22/23 oxyBUTYnin chloride [Ditropan Xl] 5 mg PO DAILY 03/22/23 Epoetin [Retacrit] 10,000 unit IV EVERY HD vial 03/24/23 Zolpidem Tartrate [Ambien*] 10 mg PO BEDTIME PRN 04/27/23 Acetaminophen with Codeine [Acetaminophen-Cod #4 Tablet] 1 tab PO QID PRN 05/23/23 Amlodipine Besylate/Benazepril [Amlodipine-Benazepril 10-20 mg] 1 cap PO TID 05/23/23 Meloxicam 7.5 mg PO DAILY 05/23/23 Diet: Renal Followup: Toya Andrew DO, DO [Primary Care Provider] - Time spent managing pt's care (in minutes): 55
[2023-11-27] MEDS ORDERED: ZOLPIDEM TARTRATE 10 MG TABLET PO PRN (14:54)
[2023-11-27] MEDS ORDERED: HYDROCODONE/APAP 5/325 MG TAB PO PRN (14:55)
[2023-11-27] MEDS: HYDRALAZINE HCL 20 MG/ML VIAL IV PRN (15:40)
[2023-11-27 15:41] LABS: Hepatitis B Surface Ab - Quant 4.77 mIU/mL (<8.0); Hepatitis B surface AG Interp. Nonreactive (Nonreactive)
[2023-11-27 18:39] VITALS: BP 151/71; TEMP 98.7
--- NOTE | 2023-11-28 03:21 | CON ---
Date of Consultation: 11/27/2023 Reason For Consultation: Shortness of breath, volume overload, end-stage renal disease, hyperkalemia . History Of Present Illness: The patient is a 63-year-old man with history of medical problems of mul tiple etiology. The patient has end-stage renal disease on dialysis, is undergoing dialysis on , Monday, Monday. He has history of diabetes mellitus, diabetic kidney disease, hypertension, hy pertensive heart and kidney disease. He came to the hospital because of episodes of worsening shortn ess of breath. He denies wheezing, hemoptysis. He denies chest pain or cough. The patient missed h is dialysis on Monday. Prior to that he was dialyzed last Monday. Chest x-ray was concerning for volume overload and decompensation of congestive heart failure. The patient received diuretics for volume control and urgent dialysis was scheduled to control hyperkalemia and fluid overload. Blood p ressure was stable during dialysis and patient tolerated dialysis. Past Medical History: End-stage renal disease, on hemodialysis; hypertension; noninsulin-dependent d iabetes mellitus; chronic IJ blood clot, peritoneal dialysis port, shoulder surgery. Family History: Father, heart disease. Social History: Denies tobacco, alcohol, or illicit drugs. Review of Systems: General: Denies fever or chills. Eyes: Denies new vision changes. Ears, Nose, Mouth, and Throat: Denies sore throat or earache. Respiratory: Denies wheezing, cough, hemoptysis. Cardiovascular: Denies palpitation, syncope. GI: Denies nausea, vomiting, diarrhea. : Denies dysuria or hematuria. All other systems reviewed and all are negative. Physical Examination: General: Alert and oriented x3. HEENT: Atraumatic, normocephalic. Neck: Supple. Respiratory: Cardiovascular: S1, S2. No pericardial friction rub. Abdomen: Soft, nontender. Extremities: No clubbing, cyanosis. Edema present. Laboratory Data: WBC 6.8, hemoglobin 8.2, platelet count 207,000. Sodium 129, potassium 4.7, BUN 87 , creatinine 11.2, glucose 80. Magnesium 2.6. Bilirubin 0.3. Impression And Plan: 1.End-stage renal disease, on hemodialysis. The patient has fluid overload and hyperkalemia. Start ed [facility] to treat hyperkalemia. Subsequently, he will have dialysis for volume control. 2.Anemia in chronic kidney disease. Monitor hemoglobin level. The patient will continue HASEEB with d ialysis. 3.Fluid overload, anasarca. Continue p.o. fluid restriction, low-sodium diet. 4.Hypertension. Continue blood pressure medication. Monitor blood pressure closely. 5. the patient will follow up with medical superintendent to rule out coronary artery disease. NADEEN/BETTINA Voice ID: [id number] Report ID: [id number]
[2023-11-28] MEDS ORDERED: OXYBUTYNIN ER 5 MG TAB PO SCH (09:00)
[2023-11-28] MEDS ORDERED: MELOXICAM 7.5 MG TAB PO SCH (09:00)
[2023-11-28] MEDS ORDERED: lisinopriL 20 MG TAB PO SCH (09:00)
== END 2023-11-27 19:11 | disposition home or self-care (01) ==
LOC: ER 00:42 → ERHOLD 04:09 → 2ND 06:17
PROVIDERS: ADMIT Internal Medicine Nephrology; ATTEND Hospitalist
DX: N04.9 Nephrotic syndrome with unspecified morphologic changes (principal); E11.22 Type 2 diabetes mellitus with diabetic chronic kidney disease; I12.0 Hypertensive chronic kidney disease with stage 5 chronic kidney disease or end stage renal disease; N18.6 End stage renal disease; D63.1 Anemia in chronic kidney disease; E87.70 Fluid overload, unspecified; Z99.2 Dependence on renal dialysis
CPT/HCPCS: 93005; 85025; 80048; 36415; 83735; 85610; 82947 ×2; 80076; 84484; 83880; 87340; 86706; 71045; 90935; J0360; J1200; J2405; J1644

== ENCOUNTER 2024-01-10 14:19 | Observation (INO) | payer OTHER ==
[2024-01-10 14:51] LABS: Absolute Basophils 0.1 K/uL (0-0.5); Absolute Eosinophils 0.1 K/uL (0-0.5); Absolute Lymphocytes (CBC) 0.7 K/uL (0.7-4.9); Absolute Monocytes 0.6 K/uL (0.1-1.3); Absolute Neutrophil 3.8 K/uL (1.8-8.0); Hematocrit 27.7 % (39.6-49.0); Hemoglobin 9.4 g/dL (13.6-17.9); MCH 29.6 pg (27.0-35.0); MCHC 33.8 g/dL (32.0-36.0); MCV 87.6 fL (80-100); MPV 7.2 fL (7.6-11.3); Nucleated Red Blood Cells % 0.1 % (0-0); Platelets 236 thou/uL (152-406); RBC Red Blood Cell Count 3.17 M/uL (4.33-5.43); Red Cell Distribution Width 15.2 % (12.1-15.2)
[2024-01-10 14:58] LABS: PT Prothrombin Time 11.1 SECONDS (9.5-12.5); Protime INR 1.01
[2024-01-10 15:14] LABS: Albumin 3.8 g/dL (3.4-5.0); Albumin/Globulin Ratio 1.2 (1.1-1.8); Anion Gap 8.2 mEq/L (5.0-15.0); Bilirubin Direct 0.1 mg/dL (0-0.2); Bilirubin Indirect, Calculated 0.2 mg/dL (0.2-0.8); Bilirubin Total 0.3 mg/dL (0.2-1.0); Globulin 3.3 g/dL (2.3-3.5); Magnesium 2.3 mg/dL (1.6-2.4); Potassium 3.2 mEq/L (3.5-5.1); Protein, Total 7.1 g/dL (6.4-8.2)
[2024-01-10] MEDS ORDERED: ONDANSETRON 4 MG/2 ML VIAL IV PRN (16:08)
[2024-01-10] MEDS ORDERED: ACETAMINOPHEN 500 MG TAB PO PRN (16:08)
--- NOTE | 2024-01-10 16:13 | ER ---
Nurse's Notes [facility] Name: Alex Cagle Age: 63 yrs Sex: Male : 1960 Arrival Date: 01/10/2024 Time: 14:19 Bed 19 Private MD: Diagnosis: Chest pain, unspecified;Essential (primary) hypertension;Anemia, unspecified;Hypokalemia Presentation: 01/09 14:27 Chief complaint: EMS states: "toned out for CP that radiates to left arm that started mb9 45 minutes ago while at Dialysis. Pt got 3.6 L pulled off.". Coronavirus screen: Vaccine status: Patient reports receiving the 2nd dose of the covid vaccine. Ebola Screen: No symptoms or risks identified at this time. Initial Sepsis Screen: Does the patient meet any 2 criteria? No. Patient's initial sepsis screen is negative. Does the patient have a suspected source of infection? No. Patient's initial sepsis screen is negative. Risk Assessment: Do you want to hurt yourself or someone else? Patient reports no desire to harm self or others. Onset of symptoms was January 10, 2024. Care prior to arrival: Medication(s) given: ASA, 325 mg, 0.4 NITRO. 14:27 Acuity: DEJAN 2 mb9 14:27 Method Of Arrival: EMS: [facility] mb9 Historical: - Allergies: 14:30 NKA; mb9 - PMHx: 14:30 Diabetes - NIDDM; dialysis on M/W/F; CHF; ESRD; Hypertension; insomnia; mb9 - PSHx: 14:30 bilateral knee repairs; R shoulder; mb9 - Immunization history:: Adult Immunizations up to date. - Infectious Disease History:: Denies. - Social history:: Smoking status: Patient denies any tobacco usage or history of. Screenin:30 [facility] ED Fall Risk Assessment (Adult) History of falling in the last 3 months, mb9 including since admission No falls in past 3 months (0 pts) Confusion or Disorientation No (0 pts) Intoxicated or Sedated No (0 pts) Impaired Gait No (0 pts) Mobility Assist Device Used No (0 pt) Altered Elimination No (0 pt) Score/Fall Risk Level 0 - 2 = Low Risk Oriented to surroundings, Maintained a safe environment, Educated pt \\T\\ family on fall prevention, incl call for assistance when getting out of bed. Abuse screen: Denies threats or abuse. Nutritional screening: No deficits noted. Tuberculosis screening: No symptoms or risk factors identified. Assessment: 15:09 General: Appears in no apparent distress. comfortable, well groomed, well developed, kc6 Behavior is calm, cooperative, appropriate for age. Pain: Complains of pain in chest and left arm. Neuro: Level of Consciousness is awake, alert, obeys commands, Oriented to person, place, time, situation, Appropriate for age. Cardiovascular: Reports chest pain, Heart tones S1 S2 present Capillary refill < 3 seconds Rhythm is sinus rhythm Dialysis shunt: in the left arm, with no erythema, with no edema, no bleeding noted. Respiratory: Airway is patent Trachea midline Respiratory effort is even, unlabored, Respiratory pattern is regular, symmetrical. GI: No signs and/or symptoms were reported involving the gastrointestinal system. : No signs and/or symptoms were reported regarding the genitourinary system. EENT: No signs and/or symptoms were reported regarding the EENT system. Derm: No signs and/or symptoms reported regarding the dermatologic system. Skin is intact, is healthy with good turgor, Skin is pink, warm \\T\\ dry. Musculoskeletal: No signs and/or symptoms reported regarding the musculoskeletal system. Circulation, motion, and sensation intact. Capillary refill < 3 seconds, Range of motion: intact in all extremities. 16:50 Reassessment: Patient appears in no apparent distress at this time. No changes from kc6 previously documented assessment. Patient and/or family updated on plan of care and expected duration. Pain level reassessed. Patient is alert, oriented x 3, equal unlabored respirations, skin warm/dry/pink. Vital Signs: 14:27 BP 162 / 90; Pulse 72; Resp 18; Temp 98; Pulse Ox 100% on 2 lpm NC; Weight 90.72 kg; mb9 Height 5 ft. 6 in. ; Pain 8/10; 15:27 BP 179 / 89; Pulse 76; Resp 20 S; Pulse Ox 100% on 2 lpm NC; kc6 14:27 Body Mass Index 32.28 (90.72 kg, 167.64 cm) mb9 14:27 Pain Scale: Adult mb9 ED Course: 14:27 Patient arrived in ED. mb9 14:27 Cliff Abbott DO is Attending Physician. ms3 14:27 Jessica Alex, RN is Primary Nurse. kc6 14:27 Arm band placed on. mb9 14:29 Triage completed. mb9 14:30 EKG done, by ED staff, reviewed by Cliff Abbott DO. Maintain EMS IV. Dressing intact. mb9 Good blood return noted. Site clean \\T\\ dry. Gauge \\T\\ site: 22 g right AC. 14:31 Placed in gown. Bed in low position. Call light in reach. Side rails up X 1. Client mb9 placed on continuous cardiac and pulse oximetry monitoring. NIBP monitoring applied. manager monitoring on. 15:24 XRAY Chest (1 view) In Process Unspecified. EDMS 16:12 Tisha Oliveros MD is Hospitalizing Provider. ms3 Administered Medications: No medications were administered Outcome: 16:12 Decision to Hospitalize by Provider. ms3 17:07 Patient left the ED. kc6 Signatures: Dispatcher [employer] EDMS Cliff Abbott DO DO ms3 Jessica Alex, RN RN kc6 Mervat Vernon RN RN mb9
--- NOTE | 2024-01-10 16:13 | EDPHYS ---
Physician Documentation [facility] Name: Alex Cagle Age: 63 yrs Sex: Male : 1960 Arrival Date: 01/10/2024 Time: 14:19 Bed 19 Private MD: ED Physician Cliff Abbott HPI: 01/09 14:56 This 63 yrs old Male presents to ER via EMS with complaints of Chest Pain. ms3 14:56 63-year-old male with past medical history of diabetes, congestive heart failure, ms3 end-stage renal disease on dialysis Monday, Monday, Monday, hypertension, insomnia presents to the emergency department via [facility] for chest pain that began while on dialysis today. EMS notes patient had 3.6 L removed during dialysis. Patient was given 324 mg aspirin, 0.4 mg nitro. Patient states the pain is located in the left side of his chest radiating down his left arm. On EMS arrival patient's blood pressure was 200/90. Patient states his pain is currently an 8/10. Patient denies any alleviating or inciting factors.. Historical: - Allergies: 14:30 NKA; mb9 - PMHx: 14:30 Diabetes - NIDDM; dialysis on M/W/F; CHF; ESRD; Hypertension; insomnia; mb9 - PSHx: 14:30 bilateral knee repairs; R shoulder; mb9 - Immunization history:: Adult Immunizations up to date. - Infectious Disease History:: Denies. - Social history:: Smoking status: Patient denies any tobacco usage or history of. ROS: 14:56 Constitutional: Negative for fever, and chills. Neck: Negative for injury, pain, and ms3 swelling, Respiratory: Negative for shortness of breath, cough, wheezing, and pleuritic chest pain, Abdomen/GI: Negative for abdominal pain, nausea, vomiting, diarrhea, and constipation, MS/Extremity: Negative for injury and deformity, 14:56 Cardiovascular: Positive for chest pain, Exam: 14:56 Constitutional: This is a well developed, well nourished patient who is awake, alert, ms3 and in no acute distress. Head/Face: Normocephalic, atraumatic. Neck: Trachea midline, no cervical lymphadenopathy. Supple, full range of motion without nuchal rigidity, or vertebral point tenderness. No Meningismus. Chest/axilla: Normal chest wall appearance and motion. Nontender with no deformity. Cardiovascular: Regular rate and rhythm with a normal S1 and S2. No gallops, murmurs, or rubs. Normal PMI, no JVD. No pulse deficits. Respiratory: Lungs have equal breath sounds bilaterally, clear to auscultation and percussion. No rales, rhonchi or wheezes noted. No increased work of breathing, no retractions or nasal flaring. Abdomen/GI: Soft, non-tender, with normal bowel sounds. No distension or tympany. No guarding or rebound. No evidence of tenderness throughout. 15:04 ECG was reviewed by the Attending Physician. ms3 Vital Signs: 14:27 BP 162 / 90; Pulse 72; Resp 18; Temp 98; Pulse Ox 100% on 2 lpm NC; Weight 90.72 kg; mb9 Height 5 ft. 6 in. ; Pain 8/10; 15:27 BP 179 / 89; Pulse 76; Resp 20 S; Pulse Ox 100% on 2 lpm NC; kc6 14:27 Body Mass Index 32.28 (90.72 kg, 167.64 cm) mb9 14:27 Pain Scale: Adult mb9 MDM: 14:27 Patient medically screened. ms3 14:56 Differential diagnosis: abnormal EKG, coronary artery disease. The patient was not ms3 given aspirin in the Emergency Department. Administered by EMS. 15:53 HEART Score: History: Moderately Suspicious (1), ECG: Normal (0), Age: > 45 and < 65 ms3 years (1), Risk Factors: > or = 3 Risk factors for atherosclerotic disease (2), [Hypertension] [DM] Troponin: < or = 1 x Normal Limit (0), Total Score = 4. 01/09 14:27 Order name: Basic Metabolic Panel; Complete Time: 15:24 ms3 01/09 14:27 Order name: CBC with Diff; Complete Time: 15:24 ms3 01/09 14:27 Order name: LFT's; Complete Time: 15:24 ms3 01/09 14:27 Order name: Magnesium; Complete Time: 15:24 ms3 01/09 14:27 Order name: NT PRO-BNP; Complete Time: 15:24 ms3 01/09 14:27 Order name: PT-INR; Complete Time: 15:24 ms3 01/09 14:27 Order name: Troponin HS; Complete Time: 15:24 ms3 01/09 16:14 Order name: Urinalysis w/ reflexes EDMS 01/09 16:14 Order name: Basic Metabolic Panel EDMS 01/09 16:14 Order name: Basic Metabolic Panel EDMS 01/09 16:14 Order name: CBC with Automated Diff EDMS 01/09 16:14 Order name: CBC with Automated Diff EDMS 01/09 16:14 Order name: Magnesium EDMS 01/09 16:14 Order name: Magnesium EDMS 01/09 16:14 Order name: NT PRO-BNP EDMS 01/09 16:14 Order name: NT PRO-BNP EDMS 01/09 16:14 Order name: Troponin High Sensitivity EDMS 01/09 16:14 Order name: Troponin High Sensitivity EDMS 01/09 16:14 Order name: Troponin High Sensitivity EDMS 01/09 16:14 Order name: Troponin High Sensitivity EDMS 01/09 14:27 Order name: XRAY Chest (1 view) ms3 01/09 14:27 Order name: EKG; Complete Time: 14:28 ms3 01/09 16:09 Order name: CONS Physician Consult EDMS 01/09 16:14 Order name: CONS Physician Consult EDMS 01/09 14:27 Order name: Cardiac monitoring; Complete Time: 14:31 ms3 01/09 14:27 Order name: EKG - Nurse/Tech; Complete Time: 14:31 ms3 01/09 14:27 Order name: IV Saline Lock; Complete Time: 14:31 ms3 01/09 14:27 Order name: Labs collected and sent; Complete Time: 14:31 ms3 01/09 14:27 Order name: O2 Per Protocol; Complete Time: 14:31 ms3 01/09 14:27 Order name: O2 Sat Monitoring; Complete Time: 14:31 ms3 EC:04 Rate is 72 beats/min. Rhythm is regular. QRS [place] is Normal. [place] interval is normal. QRS ms3 interval is normal. Clinical impression: Normal ECG. Interpreted by me. Reviewed by me. Administered Medications: No medications were administered Disposition Summary: 01/10/24 16:12 Hospitalization Ordered Notes: Hospitalization Status: Observation ms3 Provider: Tisha Oliveros ms3 Location: Telemetry/MedSurg (observation) ms3 Condition: Stable ms3 Problem: new ms3 Symptoms: are unchanged ms3 Bed/Room Type: Standard ms3 Room Assignment: 405(01/10/24 16:16) bd Diagnosis - Chest pain, unspecified ms3 - Essential (primary) hypertension ms3 - Anemia, unspecified ms3 - Hypokalemia ms3 Forms: - Medication Reconciliation Form ms3 - SBAR form ms3 - Leadership Thank You Letter ms3 Signatures: Dispatcher [employer] EDMS Isabelle Chung bd Cliff Abbott, DO DO ms3 Mervat Vernon, RN RN mb9 Corrections: (The following items were deleted from the chart) 14:28 14:28 BASIC METABOLIC PANEL+C.LAB.BRZ ordered. EDMS EDMS 14:28 14:28 CBC+H.LAB.BRZ ordered. EDMS EDMS 14:28 14:28 HEPATIC FUNCTION+C.LAB.BRZ ordered. EDMS EDMS 14:28 14:28 MAGNESIUM+C.LAB.BRZ ordered. EDMS EDMS 14:28 14:28 PROBNP+C.LAB.BRZ ordered. EDMS EDMS 14:28 14:28 PROTIME (+INR)+COAG.LAB.BRZ ordered. EDMS EDMS 14:28 14:28 Troponin High Sensitivity+C.LAB.BRZ ordered. EDMS EDMS 16:16 16:12 ms3 bd
--- NOTE | 2024-01-10 16:23 | P.HP ---
Certification for Inpatient Patient admitted to: Observation <Kandy Perez - Last Filed: 01/10/24 16:59> Patient History Date of Service: 01/10/24 History of Present Illness: 63-year-old male patient with medical history significant for ESRD on dialysis Monday, Monday, Monday schedule, hypertension, diabetes type 2, history of anemia of chronic kidney disease who was evaluated for episode of chest pain that started today during hemodialysis, reported symptoms started prior to arrival. No reported shortness of breath fever, nausea vomiting diarrhea, headache. Plan to admit for chest pain rule out [place], end-stage renal disease on hemodialysis, nephrology, cardiology to consult. Laboratory evaluation mild hypokalemia 3.2 elevated BNP 74172 troponins normal at three 0.0, microcytic anemia 9.4 27.7 - Past Medical/Surgical History Diabetic: Yes -: End-stage renal disease on hemodialysis -: Hypertension -: Non-Insulin Dependent Type 2 Diabetes -: Chronic IJ blood clot -: CHF -: Peritoneal dialysis port -: shoulder surgery -: left upper arm fistula Psychosocial/ Personal History: Patient with 5 children. - Family History Father -: Heart disease - Social History Alcohol use: No CD- Drugs: No Caffeine use: Yes <Kandy Perez - Last Filed: 01/10/24 16:59> Date of Service: 01/10/24 <Tisha Oliveros - Last Filed: 01/14/24 09:17> Allergies No Known Allergies Allergy (Verified 01/01/21 21:09) Home Medications: Folic Acid/Vit B Complex and C [Fauzia-Conor Tablet] 1 tab PO DAILY 04/08/22 Sucroferric Oxyhydroxide [Velphoro] 500 mg PO TIDWMHS 04/08/22 Lisinopril [Zestril] 20 mg PO DAILY 03/22/23 oxyBUTYnin chloride [Ditropan Xl] 5 mg PO DAILY 03/22/23 Epoetin [Retacrit] 10,000 unit IV EVERY HD vial 03/24/23 Zolpidem Tartrate [Ambien*] 10 mg PO BEDTIME PRN 04/27/23 Acetaminophen with Codeine [Acetaminophen-Cod #4 Tablet] 1 tab PO QID PRN 05/23/23 Amlodipine Besylate/Benazepril [Amlodipine-Benazepril 10-20 mg] 1 cap PO TID 05/23/23 Meloxicam 7.5 mg PO DAILY 05/23/23 Review of Systems PER HPI <Kandy Perez - Last Filed: 01/10/24 16:59> Physical Examination - Physical Exam General: Alert, In no apparent distress, Oriented x3 HEENT: Atraumatic, Normocephalic Neck: Supple, 2+ carotid pulse no bruit Respiratory: Normal air movement, Crackles/rales Cardiovascular: Normal pulses, Regular rate/rhythm Capillary refill: <2 Seconds Gastrointestinal: Normal bowel sounds, No tenderness Musculoskeletal: No clubbing, No swelling Integumentary: No breakdown, No significant lesion Neurological: Normal speech, Normal strength at 5/5 x4 extr Urinary: Dialysis catheter - Studies Laboratory Data (last 24 hrs) 01/10/24 01/10/24 01/10/24 14:43 14:43 14:43 WBC 5.30 Hgb 9.4 L Hct 27.7 L Plt Count 236 PT 11.1 INR 1.01 Sodium 135 L Potassium 3.2 L BUN 23 H Creatinine 5.51 H Glucose 91 Magnesium 2.3 Total Bilirubin 0.3 AST 15 ALT 21 Alkaline Phosphatase 96 <Kandy Perez - Last Filed: 01/10/24 16:59> Assessment and Plan - Plan Assessment plan Chest pain rule out [place] Cardiology consult, telemetry, Trend troponins, as needed analgesics, nitro, EKG End-stage renal disease on hemodialysis, Fluid volume overload, Elevated BNP Nephrology consult, for hemodialysis- Management as per nephrology ultrafiltration during dialysis. Resume appropriate home Diabetes type 2: We will monitor blood sugar ACHS. Continue sliding scale insulin for glucose control. we will continue on carb restricted diet. Anemia of chronic disease Trend H&H Full code DVT heparin Diet renal Disposition Home Discharge Plan: Home - Advance Directives Does patient have a Living Will: No Does patient have a Durable POA for Healthcare: No - Code Status/Comfort Care Code Status: Full Code Critical Care: No Time Spent Managing Pts Care (In Minutes): 55 <Kandy Perez - Last Filed: 01/10/24 16:59> Date of Service: 01/10/24 Patient chart was reviewed and patient was seen and examined. MENA history and physical reviewed as well. Agree with the assessment and plan. Patient pre sented with chest pain. Patient ESRD patient. Patient has done well during hospital stay. Patient's clinical symptoms have improved. Patient will continue with medical therapy as an outpatient. Plan to proceed with stress test. Most of the MDM was done by myself and plan of care was discussed with MENA as well as the patient. Plan to discharge if stress test is negative. Anticipated length of stay is 24hrs. <Tisha Oliveros - Last Filed: 01/14/24 09:17>
[2024-01-10] MEDS: INSULIN REGULAR (HUMAN) 100 UNIT/ML SQ SCH (16:30)
--- NOTE | 2024-01-10 16:56 | RAD REPORT ---
EXAM DESCRIPTION: RADChest Single View01/10/2024 3:22 pm CLINICAL HISTORY: CHEST PAIN COMPARISON: Chest Single View dated 11/27/2023; Chest Single View dated 06/28/2023; Chest Single View dated 05/23/2023; Abdomen 1 View (KUB) dated 05/21/2023 TECHNIQUE: Portable AP view of the chest. FINDINGS: The lungs are clear. No pneumothorax or effusion. The cardiomediastinal contours are unch anged. IMPRESSION: No acute cardiopulmonary process.
[2024-01-10 18:26] VITALS: BMI 31.9
[2024-01-10] MEDS: HEPARIN 5000 UNIT/ML 1 ML VIAL SQ SCH (19:46)
[2024-01-10] MEDS: MORPHINE 4 MG/ML SYR IV PRN (19:59)
[2024-01-10] MEDS: ZOLPIDEM TARTRATE 10 MG TABLET PO PRN (22:13)
[2024-01-11] MEDS: HYDRALAZINE HCL 25 MG TABLET PO SCH ×2 (05:09→14:00)
[2024-01-11] MEDS: NITROGLYCERIN 0.4 MG/TAB SL PRN (05:09)
[2024-01-11 06:02] LABS: Absolute Basophils 0.1 K/uL (0-0.5); Absolute Eosinophils 0.1 K/uL (0-0.5); Absolute Monocytes 0.7 K/uL (0.1-1.3); Absolute Neutrophil 4.1 K/uL (1.8-8.0); Hematocrit 27.3 % (39.6-49.0); Hemoglobin 8.9 g/dL (13.6-17.9); Lymphocytes % 17.2 % (15.3-44.8); MCH 29.1 pg (27.0-35.0); MCHC 32.6 g/dL (32.0-36.0); MCV 89.3 fL (80-100); MPV 7.2 fL (7.6-11.3); Monocytes % 11.7 % (3.3-12.3); Neutrophils % 68.1 % (41.7-73.7); Platelets 236 thou/uL (152-406); RBC Red Blood Cell Count 3.06 M/uL (4.33-5.43); Red Cell Distribution Width 15.5 % (12.1-15.2)
[2024-01-11 06:21] LABS: Anion Gap 9.8 mEq/L (5.0-15.0); Magnesium 2.5 mg/dL (1.6-2.4); Potassium 3.8 mEq/L (3.5-5.1)
--- NOTE | 2024-01-11 06:49 | P.DS ---
Admission Date: 01/10/24 Discharge Date: 01/12/24 Brief History of Present Illness: 63-year-old male patient with medical history significant for ESRD on dialysis Monday, Monday, Monday schedule, hypertension, diabetes type 2, history of anemia of chronic kidney disease who was evaluated for episode of chest pain that started today during hemodialysis, reported symptoms started prior to arrival. No reported shortness of breath fever, nausea vomiting diarrhea, headache. Plan to admit for chest pain rule out VT, end-stage renal disease on hemodialysis, nephrology, cardiology to consult. Laboratory evaluation mild hypokalemia 3.2 elevated BNP [address] troponins normal at three 0.0, microcytic anemia 9.4 27.7 Hospital Course: 63 year-old male patient presented with chest pain. Chest pain occurred during dialysis was noted to have elevated BNP, serial troponins -29.6 28.7, was evaluated by cardiology. Condition improved with as needed analgesics, was evaluated by cardiology. Patient tolerating diet, stable for discharge to home with follow-up appointment with primary care physician. Follow-up with cardiology for chest pain. 01/12/24 Nuclear stress normal, no myocardial perfusion defect. PROBLEM: Chest pain, serial troponins negative, stress test negative for ischemia End-stage renal disease on hemodialysis Elevated BNP Follow-up with cardiology after discharge Follow-up with nephrology for hemodialysis schedule Continue home medicines as previously prescribed GOAL: Clear understanding of disease process INSTRUCTIONS: Physician Discharge Instructions: -DC IV and DC home -Follow-up with PCP in 1 to 2 weeks -Please call Dr. Oliveros at [phone] if any questions regarding hospital stay -Please call nursing station at [phone] if any nursing or medication questions -Return to the emergency room if symptoms worsen Diet: ADA, low sodium Activity: Fall precautions <Kandy Perez - Last Filed: 01/12/24 15:25> Admission Date: 01/10/24 Discharge Date: 01/12/24 Hospital Course: Patient chart was reviewed and patient was seen and examined. Agree with the assessment and plan. Patient presented with chest pain and stress test was negative. Most of the MDM was done by myself and plan of care was discussed with MENA as well as the patient. Plan to discharge home with outpatient follow- up with PCP and continued hemodialysis with nephrology. <Tisha Oliveros - Last Filed: 01/14/24 09:21> Disposition: ROUTINE DISCHARGE Discharge Condition: GOOD Vital Signs/Physical Exam: Temp Pulse Resp BP Pulse Ox 98.7 F 72 18 188/92 H 96 01/11/24 04:00 01/11/24 05:09 01/11/24 04:38 01/11/24 05:09 01/11/24 04:38 Laboratory Data at Discharge: WBC 6.10 thou/uL (4.3-10.9) 01/11/24 05:49 Hgb 8.9 g/dL (13.6-17.9) L 01/11/24 05:49 Hct 27.3 % (39.6-49.0) L 01/11/24 05:49 Plt Count 236 thou/uL (152-406) 01/11/24 05:49 PT 11.1 SECONDS (9.5-12.5) 01/10/24 14:43 INR 1.01 01/10/24 14:43 Sodium 132 mEq/L (136-145) L 01/11/24 05:49 Potassium 3.8 mEq/L (3.5-5.1) D 01/11/24 05:49 BUN 34 mg/dL (7-18) H 01/11/24 05:49 Creatinine 7.74 mg/dL (0.70-1.30) H 01/11/24 05:49 Glucose 86 mg/dL (74-106) 01/11/24 05:49 Magnesium 2.5 mg/dL (1.6-2.4) H 01/11/24 05:49 Total Bilirubin 0.3 mg/dL (0.2-1.0) 01/10/24 14:43 AST 15 U/L (15-37) 01/10/24 14:43 ALT 21 U/L (16-61) 01/10/24 14:43 Alkaline Phosphatase 96 U/L (45-117) 01/10/24 14:43 Triglycerides 58 mg/dL (<150) 01/11/24 05:49 Cholesterol 117 mg/dL (<200) 01/11/24 05:49 HDL Cholesterol 65 mg/dL (40-60) H 01/11/24 05:49 Cholesterol/HDL Ratio 1.80 01/11/24 05:49 <Kandy Perez - Last Filed: 01/12/24 15:25> Vital Signs/Physical Exam: Temp Pulse Resp BP Pulse Ox 99 F 79 18 144/69 H 94 01/12/24 08:18 01/12/24 08:18 01/12/24 08:18 01/12/24 08:18 01/12/24 08:18 Laboratory Data at Discharge: WBC 6.10 thou/uL (4.3-10.9) 01/11/24 05:49 Hgb 8.9 g/dL (13.6-17.9) L 01/11/24 05:49 Hct 27.3 % (39.6-49.0) L 01/11/24 05:49 Plt Count 236 thou/uL (152-406) 01/11/24 05:49 PT 11.1 SECONDS (9.5-12.5) 01/10/24 14:43 INR 1.01 01/10/24 14:43 Sodium 126 mEq/L (136-145) L D 01/12/24 04:18 Potassium 4.8 mEq/L (3.5-5.1) D 01/12/24 04:18 BUN 53 mg/dL (7-18) H 01/12/24 04:18 Creatinine 9.84 mg/dL (0.70-1.30) H 01/12/24 04:18 Glucose 95 mg/dL (74-106) 01/12/24 04:18 Phosphorus 7.5 mg/dL (2.5-4.9) H 01/12/24 04:18 Magnesium 2.5 mg/dL (1.6-2.4) H 01/11/24 05:49 Total Bilirubin 0.3 mg/dL (0.2-1.0) 01/10/24 14:43 AST 15 U/L (15-37) 01/10/24 14:43 ALT 21 U/L (16-61) 01/10/24 14:43 Alkaline Phosphatase 96 U/L (45-117) 01/10/24 14:43 Triglycerides 58 mg/dL (<150) 01/11/24 05:49 Cholesterol 117 mg/dL (<200) 01/11/24 05:49 HDL Cholesterol 65 mg/dL (40-60) H 01/11/24 05:49 Cholesterol/HDL Ratio 1.80 01/11/24 05:49 <Tisha Oliveros - Last Filed: 01/14/24 09:21> Diet: Renal Activity: Fall precautions Time spent managing pt's care (in minutes): 55 <Kandy Perez - Last Filed: 01/12/24 15:25> <Tisha Oliveros - Last Filed: 01/14/24 09:21> Home Medications: Folic Acid/Vit B Complex and C [Fauzia-Conor Tablet] 1 tab PO DAILY 04/08/22 Sucroferric Oxyhydroxide [Velphoro] 500 mg PO TIDWMHS 04/08/22 Lisinopril [Zestril] 20 mg PO DAILY 03/22/23 oxyBUTYnin chloride [Ditropan Xl] 5 mg PO DAILY 03/22/23 Epoetin [Retacrit] 10,000 unit IV EVERY HD vial 03/24/23 Zolpidem Tartrate [Ambien*] 10 mg PO BEDTIME PRN 04/27/23 Acetaminophen with Codeine [Acetaminophen-Cod #4 Tablet] 1 tab PO QID PRN 05/23/23 Amlodipine Besylate/Benazepril [Amlodipine-Benazepril 10-20 mg] 1 cap PO TID 05/23/23 Meloxicam 7.5 mg PO DAILY 05/23/23 Physician Discharge Instructions: 63 year-old male patient presented with chest pain. Chest pain occurred during dialysis was noted to have elevated BNP, serial troponins -29.6 28.7, was evaluated by cardiology. Condition improved with as needed analgesics, was evaluated by cardiology. Patient tolerating diet, stable for discharge to home with follow-up appointment with primary care physician. Follow-up with cardiology PROBLEM: Chest pain, serial troponins negative End-stage renal disease on hemodialysis Elevated BNP Follow-up with cardiology after discharge Follow-up with nephrology for hemodialysis schedule Continue home medicines as previously prescribed GOAL: Clear understanding of disease process INSTRUCTIONS: Physician Discharge Instructions: -Follow-up with PCP in 1 to 2 weeks -Please call Dr. Oliveros at [phone] if any questions regarding hospital stay -Please call nursing station at [phone] if any nursing or medication questions -Return to the emergency room if symptoms worsen Followup: Kelli Wick [ACTIVE - CAN ADMIT] - 1-2 Weeks Toya Andrew DO, DO [Primary Care Provider] - 1-2 Weeks Jaxon Lawson MD [ACTIVE - CAN ADMIT] - 1-2 Weeks
[2024-01-11] MEDS: MORPHINE 2 MG/ML SYR IV PRN (08:13)
[2024-01-11] MEDS: lisinopriL 20 MG TAB PO SCH (08:14)
[2024-01-11] MEDS: AMLODIPINE 10 MG TAB PO SCH (08:18)
[2024-01-11] MEDS ORDERED: OXYBUTYNIN ER 5 MG TAB PO SCH (09:00)
[2024-01-11] MEDS ORDERED: ASPIRIN 81 MG CHEWABLE TABLET PO SCH (09:00)
[2024-01-11] MEDS ORDERED: MULTIVITAMINS,THERAPEUT 1 TAB PO SCH (09:00)
[2024-01-11] MEDS ORDERED: HOME MED 1 EA UNK (Folic Acid/Vit B Complex And C [Rena-Vite Tablet] 0.8 MG Tablet) PO SCH (09:00)
--- NOTE | 2024-01-11 11:04 | P.CNS ---
Date of Consult: 01/11/24 Chief Complaint: Chest pain History of Present Illness: Patient with PMH of ESRD on HD for 7 years, HTN, DM, presented with left arm pain and chest pressure during dialysis, rated as 4 out of 10, denies any other associated symptoms. Allergies No Known Allergies Allergy (Verified 01/01/21 21:09) Home Medications: Folic Acid/Vit B Complex and C [Fauzia-Conor Tablet] 1 tab PO DAILY 04/08/22 Sucroferric Oxyhydroxide [Velphoro] 500 mg PO TIDWMHS 04/08/22 Lisinopril [Zestril] 20 mg PO DAILY 03/22/23 oxyBUTYnin chloride [Ditropan Xl] 5 mg PO DAILY 03/22/23 Epoetin [Retacrit] 10,000 unit IV EVERY HD vial 03/24/23 Zolpidem Tartrate [Ambien*] 10 mg PO BEDTIME PRN 04/27/23 Acetaminophen with Codeine [Acetaminophen-Cod #4 Tablet] 1 tab PO QID PRN 05/23/23 Amlodipine Besylate/Benazepril [Amlodipine-Benazepril 10-20 mg] 1 cap PO TID 05/23/23 Meloxicam 7.5 mg PO DAILY 05/23/23 - Past Medical/Surgical History Diabetic: Yes -: End-stage renal disease on hemodialysis -: Hypertension -: Non-Insulin Dependent Type 2 Diabetes -: Chronic IJ blood clot -: CHF -: Peritoneal dialysis port -: shoulder surgery -: left upper arm fistula Psychosocial/ Personal History: Patient with 5 children. - Family History Father Medical History: Heart disease - Social History Smoking Status: Unknown if ever smoked Alcohol use: No CD- Drugs: No Caffeine use: Yes Place of Residence: Home Review of Systems 10-point ROS is otherwise unremarkable Physical Examination Temp Pulse Resp BP Pulse Ox 98.4 F 75 18 188/89 H 95 01/11/24 08:00 01/11/24 08:18 01/11/24 08:13 01/11/24 08:18 01/11/24 08:13 General: Alert, Oriented x3 HEENT: Atraumatic Neck: Supple Respiratory: Clear to auscultation bilaterally Cardiovascular: No edema, Normal S1 S2 Gastrointestinal: Normal bowel sounds Laboratory Data (last 24 hrs) 01/10/24 01/10/24 01/10/24 14:43 14:43 14:43 WBC 5.30 Hgb 9.4 L Hct 27.7 L Plt Count 236 PT 11.1 INR 1.01 Sodium 135 L Potassium 3.2 L BUN 23 H Creatinine 5.51 H Glucose 91 Magnesium 2.3 Total Bilirubin 0.3 AST 15 ALT 21 Alkaline Phosphatase 96 - Problems (1) Chest pain Onset Date: 04/24/18 Current Visit: No Status: Acute Plan: Patient for multiple risk factors including ESRD, HTN and DM patient will need stress test in am. Keep NPO after midnight. (2) CHF (congestive heart failure) Current Visit: No Status: Chronic Plan: Diastolic with moderate concentric hypertrophy. patient is currently euvolemic, continue to monitor volume and dialysis. Qualifiers: Heart failure type: diastolic Heart failure chronicity: chronic Qualified Code(s): I50.32 - Chronic diastolic (congestive) heart failure (3) HTN (hypertension) Current Visit: No Status: Chronic Plan: please start patient on Coreg 12.5 mg po BID Qualifiers: Hypertension type: primary hypertension Qualified Code(s): I10 - Essential (primary) hypertension
[2024-01-11] MEDS: HYDROCODONE/APAP 7.5/325 MG TAB PO PRN (11:18)
[2024-01-11] MEDS: POTASSIUM CL SA 10 MEQ TAB PO ONE (11:19)
[2024-01-11 12:45] VITALS: O2SAT 94
--- NOTE | 2024-01-11 12:58 | ECHO ---
HEIGHT: 5 ft 6 in WEIGHT: 200 lb 0 oz DATE OF STUDY: 01/11/[address]: Jaxon Lawson MD 2-DIMENSIONAL: YES M.MODE: YES DOPPLER: YES COLOR FLOW: YES TDS: YES PORTABLE: YES DEFINITY: BUBBLE STUDY: DIAGNOSIS: CHEST PAIN CARDIAC HISTORY: CATHERIZATION: NO SURGERY: NO PROSTHETIC VALVE: NO PACEMAKER: NO MEASUREMENTS (cm) DIASTOLIC (NORMALS) SYSTOLIC (NORMALS) IVSd 1.3 (0.6-1.2) LA Diam 3.2 (1.9-4.0) LVEF 64% LVIDd 4.6 (3.5-5.7) LVIDs 3.0 (2.0-3.5) %FS 35% LVPWd 1.4 (0.6-1.2) Ao Diam 3.0 (2.0-3.7) 2 DIMENSIONAL ASSESSMENT: RIGHT ATRIUM: NORMAL LEFT ATRIUM: NORMAL RIGHT VENTRICLE: NORMAL LEFT VENTRICLE: MODERATE LEFT VENTRICULAR HYPERTROPHY TRICUSPID VALVE: NORMAL MITRAL VALVE: NORMAL PULMONIC VALVE: NORMAL AORTIC VALVE: HEAVILY CALCIFIED PERICARDIAL EFFUSION: NONE AORTIC ROOT: NORMAL LEFT VENTRICULAR WALL MOTION: NORMAL DOPPLER/COLOR FLOW: GRADE I DIASTOLIC DYSFUNCTION COMMENTS: 1. MODERATE CONCENTRIC HYPERTROPHY 2. NORMAL LEFT VENTRICULAR SYSTOLIC FUNCTION, EJECTION FRACTION 55-60%, NORMAL WALL MOTION 3. SEVERE CALCIFIED AORTIC VALVE (UNABLE TO ACCESS IF STENOSIS IS PRESENT) 4. GRADE I DIASTOLIC DYSFUNCTION TECHNOLOGIST: RENETTA WINSTON
[2024-01-11] MEDS: SEVELAMER CARBONATE 800 MG TABLET PO SCH (13:15)
--- NOTE | 2024-01-11 13:30 | CON ---
Date of Consultation: 01/11/2024 Reason For Consultation: Elevated BUN and creatinine, fluid management, end-stage renal disease. History Of Present Illness: This is a pleasant 63-year-old gentleman, well known to me from dialysis with significant past medical history of end-stage renal disease, on hemodialysis, Monday, Monday , Monday at [facility], diabetes, hypertension, CAD, the patient was in his [facility] state of health yesterday. By the end of the dialysis, the patient started complaining from chest pain. For that reason, the patient was send to the hospital. Upon arrival to the hospital, the pat ient was chest pain free. The patient was started on heparin. The patient plan for stress test theo shaunna. Past Medical History: 1.Diabetes. 2.Hypertension. 3.End-stage renal disease. Past Surgical History: Includes AV fistula, PermCath placement, PD catheter placement and removal. Family History: Positive for CAD and hypertension. Social History: Ex-smoker. Occasional alcohol. Denied drugs abuse. Review of Systems: Head and Neck: No red eye. No ear pain. GI: No nausea. No vomiting. : No polyuria. No dysuria. No hematuria. MANAGER ASSESSMENT: Not applicable. Respiratory: Has shortness of breath. Cardiovascular: Has chest pain. Endocrine: No polydipsia. Skin: No rash. Neuro: Has neuropathy. Musculoskeletal: Generalized fatigue. Physical Examination: Vital Signs: When I saw the patient, the patient's blood pressure 185/90, pulse of 79, afebrile. Chest: Crackles bilateral base. Heart: S1, S2. Regular. Systolic murmur. Abdomen: Soft, nontender. Extremities: Trace edema. Neurologic: Alert. No focality. Laboratory Data: Hemoglobin 8.9. Sodium 132, potassium 3.8, bicarb 34, BUN 28, creatinine 7.7, calc ium 8.6, magnesium 2.5. Current Medications: The patient is on include lisinopril, hydralazine 50 b.i.d., nitroglycerin, Amb ien. Assessment And Plan: 1.End-stage renal disease, over volume. I am going to go ahead and do dialysis today sequential and we will arrange for dialysis tomorrow post cardiac cath. 2.Hypertension. We will challenge the patient with daily dialysis and we will follow up. 3.Anemia of chronic kidney disease. Resume Retacrit. 4.Over volume with CHF exacerbation as above. We will challenge the patient. 5.Non-ST elevation WI. Follow up with Cardiology. 6.Diabetes as by primary. Thank you, Dr. Oliveros, for allowing us to participate in the care of your patient. RENAE Voice ID: [id number] Report ID: [id number]
[2024-01-11] MEDS: EPOETIN ALFA 10,000 UNIT/ML VIAL IV SCH (15:45)
[2024-01-11 15:59] LABS: Hepatitis B Surface Ab - Quant > 1000.00 mIU/mL (<8.0); Hepatitis B surface AG Interp. Nonreactive (Nonreactive)
[2024-01-11 16:00] LABS: HBsAG Nonreactive Report Report
[2024-01-11] MEDS: DIPHENHYDRAMINE 25 MG TAB/CAP PO PRN (16:59)
[2024-01-12 04:58] LABS: Albumin 3.8 g/dL (3.4-5.0); Anion Gap 13.8 mEq/L (5.0-15.0); Phosphorus 7.5 mg/dL (2.5-4.9); Potassium 4.8 mEq/L (3.5-5.1)
[2024-01-12 05:54] VITALS: TEMP 99
[2024-01-12 08:07] VITALS: BP 144/69
--- NOTE | 2024-01-12 08:16 | P.PN ---
Subjective Date of Service: 01/12/24 Chief Complaint: Chest pain Reports mild chest pain, echo ultrasound done at bedside N.p.o. after midnight stress test in a.m. - Physical Exam General: Alert, In no apparent distress, Oriented x3 HEENT: Atraumatic, Normocephalic Neck: Supple, 2+ carotid pulse no bruit Respiratory: Normal air movement, Crackles/rales Cardiovascular: Normal pulses, Regular rate/rhythm Capillary refill: <2 Seconds Gastrointestinal: Normal bowel sounds, No tenderness Musculoskeletal: No clubbing, No swelling Integumentary: No breakdown, No significant lesion Neurological: Normal speech, Normal strength at 5/5 x4 extr Urinary: Dialysis catheter <Kandy Perez - Last Filed: 01/12/24 08:17> Date of Service: 01/11/24 <Tisha Oliveros - Last Filed: 01/14/24 09:19> Review of Systems Per HPI <Kandy Perez - Last Filed: 01/12/24 08:17> Physical Examination - Vital Signs Temperature: 99 F Blood Pressure: 144/69 Pulse: 79 Respirations: 18 Pulse Ox (%): 94 <Kandy Perez - Last Filed: 01/12/24 08:17> Assessment And Plan - Plan Assessment plan Chest pain rule out NH Cardiology consult, telemetry, Trend troponins, as needed analgesics, nitro, EKG 4/4 N.p.o. after midnight, stress test in the a.m. End-stage renal disease on hemodialysis, Fluid volume overload, Elevated BNP Nephrology consult, for hemodialysis- Management as per nephrology ultrafiltration during dialysis. Resume appropriate home Diabetes type 2: We will monitor blood sugar ACHS. Continue sliding scale insulin for glucose control. we will continue on carb restricted diet. Anemia of chronic disease Trend H&H Full code DVT heparin Diet renal Disposition Home Discharge Plan: Home Critical Care: No Time Spent Managing PTS Care (In Minutes): 35 <Kandy Perez - Last Filed: 01/12/24 08:17> Date of Service: 01/11/24 Patient chart was reviewed and patient was seen and examined. Agree with the assessment and plan. Most of the MDM was done by myself and plan of care was discussed with MENA as well as the patient. Plan to discharge in a.m. if stress test is negative. <Tisha Oliveros - Last Filed: 01/14/24 09:19>
[2024-01-12] MEDS ORDERED: REGADENOSON 0.4 MG/5 ML SYR IV ONE (09:19)
--- NOTE | 2024-01-12 09:54 | RAD REPORT ---
EXAM DESCRIPTION: NM - Rest Stress Cardiac Imaging - 01/12/2024 9:47 am CLINICAL HISTORY: Chest pain. COMPARISON: 2017 TECHNIQUE: The patient was administered 10.5 mCi of Tc 99m Sestamibi prior to resting SPECT imaging of the heart. The patient was then administered 32.5 MCi of Tc 99m Sestamibi following exercise or ph armacologic stress. Multiplanar SPECT images were reviewed. FINDINGS: There is uniformity of radiotracer uptake involving the entire left ventricular myocardiu m on rest and stress images. The left ventricular ejection fraction equals 57% IMPRESSION: Negative for a myocardial perfusion defect
--- NOTE | 2024-01-12 11:58 | EKG ---
Test Date: 2024-01-10 Test Time: 14:31:03 Filter Screen Cleaner: YUAN MEASUREMENT RESULTS: Intervals: Rate: 72 FL: 190 QRSD: 94 QT: 446 QTc: 488 [place]: P: 41 FL: 190 QRS: 76 T: 16 INTERPRETIVE STATEMENTS: Normal sinus rhythm Prolonged QT Abnormal ECG Compared to ECG 11/27/2023 01:13:47 Prolonged QT interval now present T-wave abnormality no longer present Possible ischemia no longer present Electronically Signed On 01-12-24 11:54:39 CDT by Robby Cobb
--- NOTE | 2024-01-12 13:53 | PN ---
Date of Progress Note: 01/12/2024 Subjective: Seen by bedside. No further chest pain, shortness of breath, orthopnea, cough. No naus ea, vomiting, diarrhea. All other systems reviewed are negative. Physical Examination: Vital signs: Reviewed. Head and Neck: Pupils are equal, reactive to light. Intact eye movements. No JVD. No cervical lym phadenopathy. Neck is supple. Thyroid is not enlarged. Lungs: Clear to auscultation bilaterally. No rhonchi, wheezing, or crackles. No accessory muscle u se. Heart: Regular rate and rhythm. No extra sounds. Abdomen: Soft, nontender. Bowel sounds positive. No organomegaly. No masses or hernia. No rigidi ty or rebound. Extremities: No edema, clubbing, or cyanosis. Intact pulses. Skin: No rash. No nodule. Neurologic: Alert, awake, oriented x3. No acute focal deficits appreciated. Investigations: BUN 53, creatinine 9.8. Stress test was negative for perfusion defect. Assessment/recommendation: 1.Chest pain with multiple risk factors, but stress test is negative, cardiac enzymes are negative, the patient can be released. Follow up on outpatient basis and cardiac risk factor modification to b e implemented. 2.Congestive heart failure, diastolic, stable. Continue current management. 3.Hypertension. Blood pressure is borderline. Resume home medications. 4.End-stage renal disease, on dialysis. Cardiology will sign off and follow up on outpatient basis. /BETTINA Voice ID: [id number] Report ID: [id number]
--- NOTE | 2024-01-13 01:21 | PN ---
Date of Progress Note: 01/12/2024 Chief Complaint: End-stage renal disease, fluid overload, hyponatremia due to volume overload. Subjective: The patient is admitted to the hospital because of fluid overload. He has multiple medi sony problems, including end-stage renal disease, on hemodialysis. He has been dialyzed on Monday, , and Monday. He has hypertension, coronary artery disease. He came to the hospital because he was complaining of chest pain and is admitted for cardiac workup. He is undergoing dialysis in [facility] to control fluid overload. Today, lab work showed hyponatremia and in this particular pat ient, hyponatremia is due to volume overload. He received dialysis with ultrafiltration, and he is f eeling better after dialysis. Review of Systems: Denies chest pain, palpitation. Physical Examination: Lungs: Clear to auscultation bilaterally. Heart: S1, S2. Abdomen: Soft, benign. Extremities: Trace edema in both ankles. Impression And Plan: 1.End-stage renal disease, volume overload. The patient received dialysis today with ultrafiltratio n. The patient was scheduled to have cardiac catheterization and received dialysis afterwards. The patient was found to have [id number] myocardial infarction and Cardiology was consulted. 2.Hypertension. Continue blood pressure medication. 3.Anemia due to chronic kidney disease. Continue HASEEB. 4.Diabetes mellitus, per Primary team. NADEEN/BETTINA Voice ID: [id number] Report ID: [id number]
--- NOTE | 2024-01-15 09:02 | TREADPHA ---
DX: CHEST PAIN Date of Study: 01/12/2024 Ht: 5' 6 " Wt: 200 lb 0 oz Consulting Physician: SHYANN MEDICATIONS: TYLENOL, NORCO, NORVASC, BENADRYL, RETACRIT, HEPARIN, APRESOLINE, NOVOLIN-R, PRINIVIL, MORPHINE, NITROSTAT, ZOFRAN, RENVELA, AMBIEN HISTORY: 63 YEAR OLD MALE WITH COMPLIANTS OF CHEST PAIN AND HYPERTENSION. HISTORY OF HYPERTENSION, DIABETES MELLITUS, CHRONIC KIDNEY DISEASE STAGE FOUR, ON DIALYSIS. PATIENT DENIES ALLERGIES TO MEDICATIONS. PHYSICIAL EXAMINATION: RESTING B.P.: 147/87 RESTING H.R.: 73 RESTING EKG: NORMAL SINUS RHYTHM PROTOCOL: PHARMACOLOGIC EXERCISE TIME: 3:30 B.P. AT PEAK STRESS: 149/81 IMPRESSION: LEXISCAN INJECTED. CARDIOLITE INJECTED - SEE NUCLEAR MEDICINE REPORT. NO SUPRAVENTRICULAR TACHCARDIA, VENTRICULAR TACHYCARDIA, PREMATURE ATRIAL COMPLEXES, PREMATURE VENTRICULAR COMPLEXES. PATIENT DENIES CHEST PAIN. PATIENT FALLING ASLEEP THROUGHOUT PROCEDURE. EASILY WOKEN UP BY CALLING NAME. PATIENT STATES NO ABNORMAL FEELINGS. NO ELECTROCARDIOGRAM CHANGES OF ISCHEMIA WITH LEXISCAN.
== END 2024-01-12 15:55 | disposition home or self-care (01) ==
LOC: ER 14:19 → 4TH 16:06
PROVIDERS: ADMIT Hospitalist; ATTEND Hospitalist
DX: E87.70 Fluid overload, unspecified (principal); E11.22 Type 2 diabetes mellitus with diabetic chronic kidney disease; I50.32 Chronic diastolic (congestive) heart failure; I12.0 Hypertensive chronic kidney disease with stage 5 chronic kidney disease or end stage renal disease; N18.6 End stage renal disease; D63.1 Anemia in chronic kidney disease; R79.89 Other specified abnormal findings of blood chemistry; E87.1 Hypo-osmolality and hyponatremia; Z99.2 Dependence on renal dialysis
CPT/HCPCS: 93005; 93017; 93306; 85025 ×2; 80048 ×2; 36415 ×2; 83735 ×2; 85610; 80061; 82947 ×6; 80076; 80069; 84484 ×4; 83880 ×2; 87340; 86706; 71045; 90935 ×3; 78452; 99284; J1644 ×5; J2785; J2270 ×5; A9500; G0378 ×3

== ENCOUNTER 2024-06-01 02:45 | Inpatient (IN) | payer OTHER ==
[2024-06-01] MEDS ORDERED: MORPHINE 4 MG/ML SYR ONE (02:53)
[2024-06-01] MEDS ORDERED: HYDRALAZINE HCL 20 MG/ML VIAL ONE ×2 (02:53→05:00)
[2024-06-01] MEDS ORDERED: ONDANSETRON 4 MG/2 ML VIAL ONE (02:53)
[2024-06-01 03:17] LABS: Absolute Eosinophils 0.2 K/uL (0-0.5); Absolute Lymphocytes (CBC) 0.6 K/uL (0.7-4.9); Absolute Monocytes 0.7 K/uL (0.1-1.3); Basophils % 0.6 % (0-1.3); Hematocrit 31.5 % (39.6-49.0); Hemoglobin 10.5 g/dL (13.6-17.9); Lymphocytes % 7.4 % (15.3-44.8); MCH 29.6 pg (27.0-35.0); MCHC 33.4 g/dL (32.0-36.0); MCV 88.5 fL (80-100); MPV 6.8 fL (7.6-11.3); Monocytes % 7.6 % (3.3-12.3); Neutrophils % 82.4 % (41.7-73.7); Platelets 213 thou/uL (152-406); RBC Red Blood Cell Count 3.56 M/uL (4.33-5.43); Red Cell Distribution Width 16.5 % (12.1-15.2)
[2024-06-01 03:23] LABS: PT Prothrombin Time 11.1 SECONDS (9.4-12.5); Protime INR 0.99
[2024-06-01 03:37] LABS: Albumin/Globulin Ratio 1.2 (1.1-1.8); Anion Gap 17.2 mEq/L (5.0-15.0); Bilirubin Direct 0.2 mg/dL (0-0.2); Bilirubin Indirect, Calculated 0.4 mg/dL (0.2-0.8); Bilirubin Total 0.6 mg/dL (0.2-1.0); Globulin 3.3 g/dL (2.3-3.5); Magnesium 2.5 mg/dL (1.6-2.4); Potassium 5.2 mEq/L (3.5-5.1); Protein, Total 7.3 g/dL (6.4-8.2)
--- NOTE | 2024-06-01 04:30 | EDPHYS ---
Physician Documentation [facility] Name: Alex Cagle Age: 63 yrs Sex: Male : 1960 Arrival Date: 06/01/2024 Time: 02:45 Bed 6 Private MD: ED Physician Robles Kennedy HPI: 06/01 02:48 This 63 yrs old Male presents to ER via Unassigned with complaints of High sp4 Blood Pressure, Shortness Of Breath. 04:30 63-year-old male with history of end-stage renal disease on hemodialysis missed sp4 dialysis on Monday, presents with acute chest pain shortness of breath on awakening this morning. . Historical: - Allergies: 02:46 NKA; ss - Home Meds: 02:46 lisinopril 20 mg oral tablet 1 tabs daily [Active]; carvedilol 12.5 mg oral tablet ss [Active]; amlodipine-benazepril 10-20 mg oral capsule 1 cap three times a day [Active]; 02:50 "unknown fluid pill" [Active]; ss - PMHx: 02:46 CHF; Diabetes - NIDDM; Hypertension; insomnia; ESRD; dialysis on M/W/F; ss - PSHx: 02:46 bilateral knee repairs; R shoulder; ss - Immunization history:: Adult Immunizations unknown. - Infectious Disease History:: Denies. - Social history:: Smoking status: Patient denies any tobacco usage or history of. Patient/guardian denies using alcohol, street drugs. - Family history:: not pertinent. ROS: 04:30 Constitutional: Negative for fever, chills, and weight loss, positive chest pain and sp4 positive shortness of breath Eyes: Negative for injury, pain, redness, and discharge, 04:30 All other systems are negative, Exam: 04:30 Constitutional: This is a well developed, well nourished patient who is awake, alert, sp4 acutely dyspneic Head/Face: Normocephalic, atraumatic. Eyes: Pupils equal round and reactive to light, extra-ocular motions intact. Lids and lashes normal. Conjunctiva and sclera are not injected. Cornea within normal limits. Periorbital areas with no swelling, redness, or edema. ENT: Nares patent. No nasal discharge, no septal abnormalities noted. Tympanic membranes are normal and external auditory canals are clear. Oropharynx with no redness, swelling, or masses, exudates, or evidence of obstruction, uvula midline. Mucous membranes moist. Neck: Trachea midline, no thyromegaly or masses palpated, and no cervical lymphadenopathy. Supple, full range of motion without nuchal rigidity, or vertebral point tenderness. Positive jugular venous distention Chest/axilla: Normal chest wall appearance and motion. Nontender with no deformity. No lesions are appreciated. Cardiovascular: Regular rate and rhythm with a normal S1 and S2. No gallops, murmurs, or rubs. Normal PMI, positive jugular venous distention, no pulse deficits. Respiratory: Lungs have equal breath sounds bilaterally, clear to auscultation and percussion. No rales, rhonchi or wheezes noted. No increased work of breathing, no retractions or nasal flaring. Abdomen/GI: Soft, with normal bowel sounds. No distension or tympany. No guarding or rebound. No evidence of tenderness throughout. Back: No spinal tenderness. No costovertebral tenderness. Skin: Warm, dry with normal turgor. Normal color with no rashes, no lesions, and no evidence of cellulitis. MS/ Extremity: Pulses equal, no cyanosis. Neurovascular intact. Full, normal range of motion. Neuro: Awake and alert, GCS 15, oriented to person, place, time, and situation. Cranial nerves II-XII grossly intact. Motor strength 5/5 in all extremities. Sensory grossly intact. Psych: Awake, alert, with orientation to person, place and time. Behavior, mood, and affect are within normal limits 04:30 ECG was reviewed by the Attending Physician. EKG at 0 249, NSR at 79 bpm Vital Signs: 02:45 BP 178 / 52; Pulse 77; Resp 21; Temp 97.5; Pulse Ox 95% on 3 lpm NC; Weight 90.72 kg; bm8 Height 5 ft. 7 in. ; Pain 8/10; 03:45 BP 185 / 86; Pulse 82; Resp 17; Pulse Ox 94% ; jj7 05:13 BP 166 / 83; Pulse 85; Resp 19; Temp 97.5; Pulse Ox 97% on 3 lpm NC; bm8 02:45 Body Mass Index 31.32 (90.72 kg, 170.18 cm) bm8 02:45 Pain Scale: Adult bm8 Elías Coma Score: 04:30 Eye Response: spontaneous(4). Motor Response: obeys commands(6). Verbal Response: sp4 oriented(5). Total: 15. 05:13 Eye Response: spontaneous(4). Motor Response: obeys commands(6). Verbal Response: bm8 oriented(5). Total: 15. MDM: 02:48 Patient medically screened. sp4 04:32 Differential diagnosis: hypertensive crisis, Malignant HTN, CVA, intracerebral sp4 hemorrhage. Data reviewed: vital signs, nurses notes, EMS record, lab test result(s), EKG, radiologic studies, plain films. Consideration of Admission/Observation Patient was admitted/placed on observation. Escalation of care including admission/observation considered. Management of patient was discussed with the following: Hospitalist: History Faculty Member on-call. Assembler [employer]: History Faculty Member. ED course: Patient stable for admission for blood pressure control also for hemodialysis inpatient.. 06/01 02:48 Order name: Basic Metabolic Panel; Complete Time: 04:24 sp4 06/01 02:48 Order name: CBC with Diff; Complete Time: 04:24 sp4 06/01 02:48 Order name: LFT's; Complete Time: 04:24 sp4 06/01 02:48 Order name: Magnesium; Complete Time: 04:24 sp4 06/01 02:48 Order name: NT PRO-BNP; Complete Time: 04:24 sp4 06/01 02:48 Order name: PT-INR; Complete Time: 04:24 sp4 06/01 02:48 Order name: Troponin HS; Complete Time: 04:24 sp4 06/01 04:47 Order name: Urinalysis w/ reflexes EDMS 06/01 04:47 Order name: CBC with Automated Diff EDMS 06/01 04:47 Order name: CBC with Automated Diff EDMS 06/01 04:47 Order name: Comprehensive Metabolic Panel EDMS 06/01 04:47 Order name: Comprehensive Metabolic Panel EDMS 06/01 02:48 Order name: XRAY Chest (1 view) sp4 06/01 02:48 Order name: Cardiac monitoring; Complete Time: 03:11 sp4 06/01 02:48 Order name: EKG - Nurse/Tech; Complete Time: 03:11 sp4 06/01 02:48 Order name: IV Saline Lock; Complete Time: 03:11 sp4 06/01 02:48 Order name: Labs collected and sent; Complete Time: 03:11 sp4 06/01 02:48 Order name: O2 Per Protocol; Complete Time: 03: sp4 06/01 02:48 Order name: O2 Sat Monitoring; Complete Time: 03:11 sp4 EC:30 Rate is 79 beats/min. Rhythm is regular, Normal Sinus Rhythm. QRS Bend is Normal. [place] sp4 interval is normal. QRS interval is normal. QT interval is normal. No Q waves. T waves are Normal. No ST changes noted. Clinical impression: Normal ECG. Interpreted by me. Reviewed by me. Administered Medications: 03:10 Drug: morphine IVP or IV 4 mg IVP once over 4 mins Route: IVP; Infused Over: 4 mins; bm8 Site: right forearm; 05:12 Follow up: Response: No adverse reaction bm8 03:10 Drug: Ondansetron IVP 4 mg IVP once; over 2 minutes Route: IVP; Site: right forearm; bm8 05:12 Follow up: Response: No adverse reaction bm8 03:11 Drug: hydrALAZINE IM 20 mg IM once {Note: right forearm, per md verbal order.} Route: bm8 IM; Site: Other; 05:12 Follow up: Response: No adverse reaction bm8 05:11 Drug: morphine IVP or IV 2 mg IVP once over 4 mins Route: IVP; Infused Over: 4 mins; bm8 Site: right forearm; 05:12 Follow up: Response: No adverse reaction bm8 05:11 Drug: hydrALAZINE IVP 10 mg IVP once Route: IVP; Site: right forearm; bm8 05:13 Follow up: Response: No adverse reaction bm8 05:12 Drug: Sodium Bicarbonate IVP 1 amp IVP once; (50 mL); equals 50 mEq Route: IVP; Site: bm8 right forearm; 05:12 Follow up: Response: No adverse reaction bm8 Disposition Summary: 06/01/24 04:30 Hospitalization Ordered Notes: Hospitalization Status: Inpatient Admission sp4 Provider: Naresh Sullivan4 Location: Telemetry/MedSur (Inpatient) sp4 Condition: Fair sp4 Problem: new sp4 Symptoms: have improved sp4 Bed/Room Type: Standard sp4 Room Assignment: 214(06/01/24 04:55) ss Diagnosis - Acute volume overload, congestive heart failure, elevated troponin, end-stage renal sp4 disease, Forms: - Medication Reconciliation Form sp4 - SBAR form sp4 - Leadership Thank You Letter 4 Signatures: Dispatcher [employer] Keily Blair RN RN ss Robles Kennedy MD MD sp4 Charles Chavez RN RN bm8 Corrections: (The following items were deleted from the chart) 04:55 04:30 sp4 ss
--- NOTE | 2024-06-01 04:30 | ER ---
Nurse's Notes [facility] Name: Alex Cagle Age: 63 yrs Sex: Male : 1960 Arrival Date: 06/01/2024 Time: 02:45 Bed 6 Private MD: Diagnosis: Acute volume overload, congestive heart failure, elevated troponin, end-stage renal disease, Presentation: 06/01 02:45 Chief complaint: Patient states: i skipped dialysis today to see my grand baby born. bm8 now i cant breathe and my chest hurts. Coronavirus screen: At this time, the client does not indicate any symptoms associated with coronavirus-19. Ebola Screen: Patient negative for fever greater than or equal to 101.5 degrees Fahrenheit, and additional compatible Ebola Virus Disease symptoms Patient denies exposure to infectious person. Patient denies travel to an Ebola-affected area in the 21 days before illness onset. No symptoms or risks identified at this time. Initial Sepsis Screen: Does the patient meet any 2 criteria? No. Patient's initial sepsis screen is negative. Does the patient have a suspected source of infection? No. Patient's initial sepsis screen is negative. Risk Assessment: Do you want to hurt yourself or someone else? Patient reports no desire to harm self or others. Onset of symptoms was May 31, 2024 at 14:00. 02:45 Method Of Arrival: EMS: [facility] bm8 02:45 Acuity: DEJAN 3 bm8 Triage Assessment: 02:45 General: Appears in no apparent distress. uncomfortable, Behavior is cooperative, bm8 appropriate for age, anxious. Pain: Complains of pain in chest Pain currently is 8 out of 10 on a pain scale. Quality of pain is described as aching, crampy. EENT: No deficits noted. No signs and/or symptoms were reported regarding the EENT system. Neuro: No deficits noted. Level of Consciousness is awake, alert, obeys commands, Oriented to person, place, time, situation, Appropriate for age. Cardiovascular: Reports chest pain, shortness of breath, Heart tones S1 S2 present Capillary refill < 3 seconds Patient's skin is warm and dry. Rhythm is sinus rhythm. Respiratory: Reports shortness of breath Airway is patent Respiratory effort is even, labored, Respiratory pattern is regular, symmetrical, Breath sounds are diminished bilaterally. Onset: The symptoms/episode began/occurred yesterday, the patient has moderate shortness of breath. GI: No signs and/or symptoms were reported involving the gastrointestinal system. : No signs and/or symptoms were reported regarding the genitourinary system. Derm: No signs and/or symptoms reported regarding the dermatologic system. Musculoskeletal: No signs and/or symptoms reported regarding the musculoskeletal system. Historical: - Allergies: 02:46 NKA; ss - Home Meds: 02:46 lisinopril 20 mg oral tablet 1 tabs daily [Active]; carvedilol 12.5 mg oral tablet ss [Active]; amlodipine-benazepril 10-20 mg oral capsule 1 cap three times a day [Active]; 02:50 "unknown fluid pill" [Active]; ss - PMHx: 02:46 CHF; Diabetes - NIDDM; Hypertension; insomnia; ESRD; dialysis on M/W/F; ss - PSHx: 02:46 bilateral knee repairs; R shoulder; ss - Immunization history:: Adult Immunizations unknown. - Infectious Disease History:: Denies. - Social history:: Smoking status: Patient denies any tobacco usage or history of. Patient/guardian denies using alcohol, street drugs. - Family history:: not pertinent. Screenin:19 [facility] ED Fall Risk Assessment (Adult) History of falling in the last 3 months, bm8 including since admission No falls in past 3 months (0 pts) Confusion or Disorientation No (0 pts) Intoxicated or Sedated No (0 pts) Impaired Gait Yes (1 pt) Mobility Assist Device Used No (0 pt) Altered Elimination No (0 pt) Score/Fall Risk Level 0 - 2 = Low Risk Oriented to surroundings, Maintained a safe environment, Educated pt \\T\\ family on fall prevention, incl call for assistance when getting out of bed, Assessed \\T\\ reinforced patient's understanding of fall precautions, Hourly rounding (assess needs \\T\\ fall precautionary measures) done, Used ambulatory aids as needed (educated on \\T\\ assisted with), Used gait belt as appropriate. Abuse screen: Denies threats or abuse. Nutritional screening: No deficits noted. Tuberculosis screening: No symptoms or risk factors identified. Assessment: 05:13 Reassessment: Patient appears in no apparent distress at this time. Patient and/or bm8 family updated on plan of care and expected duration. Pain level reassessed. Patient is alert, oriented x 3, equal unlabored respirations, skin warm/dry/pink. Pain: Complains of pain in chest Pain currently is 8 out of 10 on a pain scale. Neuro: Level of Consciousness is awake, alert, obeys commands. Cardiovascular: Reports chest pain, Heart tones S1 S2 present. Respiratory: Airway is patent Trachea midline Respiratory effort is even, unlabored, Respiratory pattern is regular, symmetrical, Breath sounds are diminished bilaterally. pt on 3L NC. GI: No signs and/or symptoms were reported involving the gastrointestinal system. : No signs and/or symptoms were reported regarding the genitourinary system. EENT: No signs and/or symptoms were reported regarding the EENT system. Derm: No signs and/or symptoms reported regarding the dermatologic system. Musculoskeletal: No signs and/or symptoms reported regarding the musculoskeletal system. Vital Signs: 02:45 BP 178 / 52; Pulse 77; Resp 21; Temp 97.5; Pulse Ox 95% on 3 lpm NC; Weight 90.72 kg; bm8 Height 5 ft. 7 in. ; Pain 8/10; 03:45 BP 185 / 86; Pulse 82; Resp 17; Pulse Ox 94% ; jj7 05:13 BP 166 / 83; Pulse 85; Resp 19; Temp 97.5; Pulse Ox 97% on 3 lpm NC; bm8 02:45 Body Mass Index 31.32 (90.72 kg, 170.18 cm) bm8 02:45 Pain Scale: Adult bm8 Elías Coma Score: 04:30 Eye Response: spontaneous(4). Motor Response: obeys commands(6). Verbal Response: sp4 oriented(5). Total: 15. 05:13 Eye Response: spontaneous(4). Motor Response: obeys commands(6). Verbal Response: bm8 oriented(5). Total: 15. ED Course: 02:45 Arm band placed on right wrist. bm8 02:46 Patient arrived in ED. jj6 02:48 Robles Kennedy MD is Attending Physician. sp4 03:09 Charles Chavez, RN is Primary Nurse. bm8 03:15 Triage completed. bm8 03:19 Patient has correct armband on for positive identification. Bed in low position. Call bm8 light in reach. Side rails up X 1. Side rails up X2. Client placed on continuous cardiac and pulse oximetry monitoring. NIBP monitoring applied. range ecologist on. Pulse ox on. NIBP on. Door closed. Noise minimized. Pillow given. Verbal reassurance given. Head of bed elevated. 03:19 No provider procedures requiring assistance completed. Initial lab(s) drawn, by me, bm8 sent to lab. Inserted saline lock: 20 gauge in right forearm, using aseptic technique. Blood collected. Flushed with 10 mL NS. Oxygen administration via nasal cannula \\T\\ 3L/min. 03:49 XRAY Chest (1 view) In Process Unspecified. EDMS 04:29 Naresh Sullivan MD is Hospitalizing Provider. sp4 05:13 Provided Education on: need for admission. bm8 05:13 Patient admitted, IV remains in place. bm8 Administered Medications: 03:10 Drug: morphine IVP or IV 4 mg IVP once over 4 mins Route: IVP; Infused Over: 4 mins; bm8 Site: right forearm; 05:12 Follow up: Response: No adverse reaction bm8 03:10 Drug: Ondansetron IVP 4 mg IVP once; over 2 minutes Route: IVP; Site: right forearm; bm8 05:12 Follow up: Response: No adverse reaction bm8 03:11 Drug: hydrALAZINE IM 20 mg IM once {Note: right forearm, per md verbal order.} Route: bm8 IM; Site: Other; 05:12 Follow up: Response: No adverse reaction bm8 05:11 Drug: morphine IVP or IV 2 mg IVP once over 4 mins Route: IVP; Infused Over: 4 mins; bm8 Site: right forearm; 05:12 Follow up: Response: No adverse reaction bm8 05:11 Drug: hydrALAZINE IVP 10 mg IVP once Route: IVP; Site: right forearm; bm8 05:13 Follow up: Response: No adverse reaction bm8 05:12 Drug: Sodium Bicarbonate IVP 1 amp IVP once; (50 mL); equals 50 mEq Route: IVP; Site: bm8 right forearm; 05:12 Follow up: Response: No adverse reaction bm8 Medication: 05:13 VIS not applicable for this client. bm8 Outcome: 04:30 Decision to Hospitalize by Provider. sp4 05:13 Admitted to Med/surg accompanied by tech, via wheelchair, with oxygen, bm8 05:13 Condition: stable 05:13 Instructed on the need for admit, Demonstrated understanding of instructions, follow-up care, 06:13 Patient left the ED. ss Signatures: Dispatcher [employer] EDMS Keily Barth, RN RN ss Elaine Huizar jj6 Olivia Francis RN RN jj7 Robles Kennedy MD MD sp4 Charles Chavez RN RN bm8
--- NOTE | 2024-06-01 04:40 | P.HP ---
Certification for Inpatient Patient admitted to: Inpatient With expected LOS: >2 Midnights Practitioner: I am a practitioner with admitting privileges, knowledge of patient current condition, hospital course, and medical plan of care. Services: Services provided to patient in accordance with Admission requirements found in Title 42 Section 412.3 of the Code of Federal Regulations Patient History Date of Service: 06/01/24 Reason for admission: SOB History of Present Illness: 63-year-old male patient with medical history significant for ESRD on dialysis Monday, Monday, Monday , hypertension, diabetes type 2, history of anemia of chronic kidney disease who missed dialysis yesterday came to ER with shortness of breath and chest discomfort and back pain. Patient denies any fever or chills. Denies any nausea vomiting or diarrhea. Patient complains of shortness of breath even with minimal exertion. Patient was assessed in the ER and was noted to have fluid overload and was admitted for further management and for dialysis this morning. He was also noted to have elevated troponin Patient also complains of back pain, he has history of chronic back pain . Denies any trauma Allergies No Known Allergies Allergy (Verified 01/01/21 21:09) Home medications list reviewed: Yes Home Medications: Folic Acid/Vit B Complex and C [Fauzia-Conor Tablet] 1 tab PO DAILY 04/08/22 Zolpidem Tartrate [Ambien*] 10 mg PO BEDTIME PRN 04/27/23 Acetaminophen with Codeine [Acetaminophen-Cod #4 Tablet] 1 tab PO QID PRN 05/23/23 Amlodipine Besylate/Benazepril [Amlodipine-Benazepril 10-20 mg] 1 cap PO TID 05/23/23 Sucroferric Oxyhydroxide [Velphoro] 1 tab PO AC 02/18/24 Benzonatate [Tessalon Perle*] 100 mg PO TID PRN cap 02/22/24 Diphenhydramine [Benadryl*] 25 mg PO Q6H PRN tab 02/22/24 Heparin [Heparin 1,000 units/mL *] 3,000 unit IV EVERY HD PRN vial 02/22/24 Hydralazine [Apresoline*] 10 mg IV Q6HP PRN vial 02/22/24 Hydrocodone 10/APAP 325 [[place] 10/325*] 1 tab PO Q4H PRN tab 02/22/24 Sevelamer Carbonate [Renvela*] 2,400 mg PO TIDWM 02/22/24 Zolpidem Tartrate [Ambien*] 10 mg PO BEDTIME PRN PRN 02/22/24 - Past Medical/Surgical History Diabetic: Yes Past Medical History: Reviewed- Non-Contributory -: End-stage renal disease on hemodialysis -: Hypertension -: Non-Insulin Dependent Type 2 Diabetes -: Chronic IJ blood clot -: CHF Past Surgical History: Reviewed- Non-Contributory -: Peritoneal dialysis port -: shoulder surgery -: left upper arm fistula -: Knee and shoulder surgery Psychosocial/ Personal History: Patient with 5 children. - Family History Family History: Reviewed- Non-Contributory - Family History Father -: Heart disease - Social History Smoking Status: Never smoker Alcohol use: No CD- Drugs: No Caffeine use: Yes Review of Systems 10-point ROS is otherwise unremarkable Physical Examination - Vital Signs Temperature: 97.2 F Blood Pressure: 164/78 Pulse: 76 Respirations: 18 Pulse Ox (%): 94 - Physical Exam General: Alert, Oriented x3, Mild distress HEENT: Atraumatic, Normocephalic Neck: Supple, No Thyromegaly Respiratory: Diminished, Crackles/rales, Expiratory wheezes Cardiovascular: Regular rate/rhythm, Normal S1 S2 Capillary refill: <2 Seconds Gastrointestinal: Soft and benign, W/out hepatosplenomegaly Musculoskeletal: No clubbing Integumentary: No rashes, No tenderness/swelling Neurological: Normal speech, Normal strength at 5/5 x4 extr Lymphatics: No axilla or inguinal lymphadenopathy - Studies Laboratory Data (last 24 hrs) 06/01/24 06/01/24 06/01/24 03:07 03:07 03:07 WBC 8.60 Hgb 10.5 L Hct 31.5 L Plt Count 213 PT 11.1 INR 0.99 Sodium 130 L Potassium 5.2 H BUN 78 H Creatinine 11.20 H Glucose 92 Magnesium 2.5 H Total Bilirubin 0.6 AST 13 L ALT 21 Alkaline Phosphatase 75 Assessment and Plan - Plan Fluid overload due to missed dialysis Grossly elevated BNP X-ray findings noted consistent with fluid overload Aggressive diuresis Nephrology consult Need dialysis this morning NSTEMI possibly type II due to fluid overload Will trend cardiac enzymes Will monitor telemetry EKG did not show any acute changes suggestive of ischemia Patient denies any chest pain Cardiology consult if troponin trending high Hypertension Antihypertensives titrated Continue home medications and titrate as needed Hyperlipidemia Continue statin Diabetes Insulin sliding scale Accu-Chek before every meal and at bedtime Anemia of chronic disease Monitor H&H closely No overt bleeding at this time GI/DVT prophylaxis Advanced directive full code Discharge Plan: Home Plan to discharge in: 48 Hours - Advance Directives Does patient have a Living Will: Yes Does patient have a Durable POA for Healthcare: No - Code Status/Comfort Care Code Status Assessed: Yes Time Spent Managing Pts Care (In Minutes): 48
[2024-06-01] MEDS ORDERED: ACETAMINOPHEN 325 MG TABLET PO PRN (04:41)
[2024-06-01] MEDS ORDERED: ALBUTEROL 2.5 MG/3 ML NEB SOL NEB PRN (04:41)
[2024-06-01] MEDS ORDERED: MORPHINE 2 MG/ML SYR ONE (05:00)
[2024-06-01] MEDS ORDERED: SODIUM BICARB 50 MEQ/50ML VIAL ONE (05:01)
[2024-06-01] MEDS ORDERED: GLUCAGON 1 MG/VIAL IM PRN (05:54)
[2024-06-01] MEDS: FUROSEMIDE 40 MG/4 ML VIAL IV SCH (06:30)
[2024-06-01] MEDS: HYDROMORPHONE HCL 1 MG/ML INJ IV ONE (06:31)
[2024-06-01] MEDS: DIPHENHYDRAMINE 25 MG TAB/CAP PO PRN (06:31)
--- NOTE | 2024-06-01 06:35 | P.PN ---
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 plan for Review of Systems 10-point ROS is otherwise unremarkable Physical Examination - Vital Signs Reviewed - Physical Exam General: Alert, Oriented x3, no acute distress noted HEENT: Atraumatic, Normocephalic Neck: Supple, No Thyromegaly Respiratory: Diminished, Crackles/rales, Expiratory wheezes Cardiovascular: Regular rate/rhythm, Normal S1 S2 Capillary refill: <2 Seconds Gastrointestinal: Soft and benign, W/out hepatosplenomegaly Musculoskeletal: No clubbing Integumentary: No rashes, No tenderness/swelling Neurological: Normal speech, Normal strength at 5/5 x4 extr Lymphatics: No axilla or inguinal lymphadenopathy Assessment and Plan - Plan Fluid overload due to missed dialysis Noncompliance with dialysis Hyperkalemia Grossly elevated BNP X-ray findings noted consistent with fluid overload Aggressive diuresis Nephrology consult Need dialysis this morning Missed dialysis on Monday NSTEMI possibly type II due to fluid overload Will trend cardiac enzymes Will monitor telemetry EKG did not show any acute changes suggestive of ischemia Patient denies any chest pain Cardiology consult if troponin trending high Hypertension Antihypertensives titrated Continue home medications and titrate as needed Hyperlipidemia Continue statin Diabetes Insulin sliding scale Accu-Chek before every meal and at bedtime Anemia of chronic disease Monitor H&H closely No overt bleeding at this time GI/DVT prophylaxis Advanced directive full code Discharge Plan: Home Plan to discharge in: 48 Hours - Advance Directives Does patient have a Living Will: Yes Does patient have a Durable POA for Healthcare: No - Code Status/Comfort Care Code Status Assessed: Yes Time Spent Managing Pts Care (In Minutes): 35 <Kandy Perez - Last Filed: 06/01/24 14:33> Patient was seen and examined. Events of the last 24 hours have been noted. Spoke with with [facility] regarding patient's clinical picture after evaluating and examining the patient independently. I performed a substantial part of the MDM during this patient's care today. I personally made or approved the documented management plan and acknowledge its risk of complications. I agree with the findings and documentation provided in the [facility]'s notes. Patient will be diuresed through dialysis. Spoke with nephrology in a couple of different sessions and at that time if clinically doing well anticipate discharge. We may dialyze again in a.m. and Monday is his regular scheduled day. After the dialysis on Monday possible discharge home. <Tisha Oliveros - Last Filed: 06/03/24 02:50>
[2024-06-01 06:56] VITALS: BMI 37.8
[2024-06-01] MEDS: INSULIN REGULAR (HUMAN) 100 UNIT/ML SQ SCH (07:30)
[2024-06-01] MEDS: SEVELAMER CARBONATE 800 MG TABLET PO SCH (08:37)
[2024-06-01] MEDS: HYDROCODONE/APAP 5/325 MG TAB PO PRN (08:37)
--- NOTE | 2024-06-01 12:35 | CON ---
Date of Consultation: 06/01/2024 Consulting Physician: Hospitalist. Reason For Consultation: Over volume, end-stage renal disease. History Of Present Illness: This is a 63-year-old gentleman, well known to me from the dialysis with significant past medical history of end-stage renal disease, on dialysis Monday, Monday, Monday, missed dialysis yesterday, poor compliance with fluid restriction, hypertension, diabetes, anemia, congestive heart failure. The patient came to the hospital as missed his dialysis yesterday complaining from shortness of breath and low back pain, found to have hypoxemia, over volume. Past Medical History: Includes: 1. Hypertension. 2. Diabetes complicated with neuropathy and nephropathy. 3. End-stage renal disease, Monday, Monday, Monday. 4. Anemia of chronic kidney disease. Allergies: NO KNOWN DRUG ALLERGY. Home Medications: Include Ambien, folic acid, amlodipine, Velphoro, heparin, hydralazine, Renvela. Past Surgical History: Include PD catheter placement, left shoulder surgery, knee surgery. Family History: Positive for hypertension and diabetes. Social History: Denied smoking. Denied drugs abuse. Active alcohol. Review of Systems: Head and Neck: No red eye. No ear pain. GI: No nausea. No vomiting. : No polyuria. No dysuria. No hematuria. MRI ASSISTANT: Not applicable. Respiratory: Has shortness of breath. Cardiovascular: Has orthopnea. Endocrine: No polydipsia. Skin: No rash. Neuro: Has neuropathy. Has multiple pain complaints. Musculoskeletal: Has low back pain. Physical Examination: Vital Signs: Blood pressure 167/80, pulse of 80, afebrile. Chest: Crackles, bilateral. Heart: S1, S2. Systolic murmur. Abdomen: Soft, nontender. Ascites. Extremities: +2 edema. Neuro: Alert. No focality. Laboratory Data: WBC 8.6, hemoglobin 10.5. Sodium 130, potassium 5.2, bicarb 21, BUN 78, creatinine of 11.2, calcium 9.3, albumin 4. Current Medications: The patient on include: 1. Albuterol. 2. Heparin. 3. Tylenol. 4. Renvela. 5. Lasix 40 b.i.d. 6. Zofran. 7. Hydrocodone. Assessment And Plan: 1. End-stage renal disease, over volume with hyperkalemia. I am going to arrange for dialysis today and tomorrow and we will follow up the patient. 2. Hypertension, controlled, not optimal. We will utilize blood pressure for more ultrafiltration. We will follow up blood pressure after dialysis. 3. Anemia of chronic kidney disease. We will resume HASEEB. 4. Secondary hyperparathyroid. Continue Renvela. We will continue renal diet and we will follow up. 5. Congestive heart failure with exacerbation as above. We will challenge the patient. 6. Diabetes as by primary. Time spent examining the patient [id number] reviewing the data and clapper and the radiology placing order discussing the case with the patient discussing the case with the steamboat captain including hospitalist and nursing staff more than 55 minutes RENAE Voice ID: [id number] Report ID: [id number] MTDD
[2024-06-01] MEDS: MORPHINE 2 MG/ML SYR IV PRN (13:58)
[2024-06-01] MEDS: EPOETIN ALFA 10,000 UNIT/ML VIAL IV SCH (16:45)
[2024-06-02] MEDS: ZOLPIDEM TARTRATE 5 MG TABLET PO PRN (05:59)
[2024-06-02 06:35] LABS: Absolute Basophils 0.1 K/uL (0-0.5); Absolute Eosinophils 0.1 K/uL (0-0.5); Absolute Lymphocytes (CBC) 0.6 K/uL (0.7-4.9); Absolute Monocytes 0.8 K/uL (0.1-1.3); Absolute Neutrophil 3.8 K/uL (1.8-8.0); Basophils % 0.9 % (0-1.3); Eosinophils % 2.3 % (0-4.4); Hematocrit 29.6 % (39.6-49.0); Hemoglobin 9.5 g/dL (13.6-17.9); Lymphocytes % 10.9 % (15.3-44.8); MCH 28.9 pg (27.0-35.0); MCHC 32.2 g/dL (32.0-36.0); MCV 89.6 fL (80-100); MPV 7.1 fL (7.6-11.3); Monocytes % 14.4 % (3.3-12.3); Neutrophils % 71.5 % (41.7-73.7); Nucleated Red Blood Cells % 0.1 % (0-0); Platelets 178 thou/uL (152-406); Red Cell Distribution Width 16.1 % (12.1-15.2)
[2024-06-02 07:04] LABS: Albumin 3.7 g/dL (3.4-5.0); Albumin/Globulin Ratio 1.1 (1.1-1.8); Anion Gap 12.3 mEq/L (5.0-15.0); Bilirubin Total 0.6 mg/dL (0.2-1.0); Globulin 3.4 g/dL (2.3-3.5); Phosphorus 7.3 mg/dL (2.5-4.9); Potassium 4.3 mEq/L (3.5-5.1); Protein, Total 7.1 g/dL (6.4-8.2)
--- NOTE | 2024-06-02 07:23 | P.PN ---
Date of Service: 06/02/24 Subjective Admitted for chest pain, chest pain improved, reports breathing better Being seen by nephrology for hemodialysis Review of Systems 10-point ROS is negative otherwise listed listed in HPI Physical Examination - Vital Signs Reviewed - Physical Exam General: Alert, Oriented x3, no acute distress noted HEENT: Atraumatic, Normocephalic Neck: Supple, No Thyromegaly Respiratory: Diminished, unlabored, crackles in the base Cardiovascular: Regular rate/rhythm, Normal S1 S2 Capillary refill: <2 Seconds Gastrointestinal: Soft and benign, W/out hepatosplenomegaly Musculoskeletal: No clubbing, generalized weakness Integumentary: No rashes, No tenderness/swelling Neurological: Normal speech, Normal strength at 5/5 x4 extr Assessment and Plan - Plan Fluid overload due to missed dialysis Noncompliance with dialysis Hyperkalemia Grossly elevated BNP X-ray findings noted consistent with fluid overload Aggressive diuresis Nephrology consult dialysis 12/02, 06/02 Missed dialysis on Monday NSTEMI possibly type II due to fluid overload Will trend cardiac enzymes Will monitor telemetry EKG did not show any acute changes suggestive of ischemia Patient denies any chest pain Cardiology consult if troponin trending high Hypertension Antihypertensives titrated Continue home medications and titrate as needed Hyperlipidemia Continue statin Diabetes Insulin sliding scale Accu-Chek before every meal and at bedtime Anemia of chronic disease Monitor H&H closely No overt bleeding at this time GI/DVT prophylaxis Advanced directive full code Discharge Plan: Home Plan to discharge in: 48 Hours - Advance Directives Does patient have a Living Will: Yes Does patient have a Durable POA for Healthcare: No - Code Status/Comfort Care Code Status Assessed: Yes Time Spent Managing Pts Care (In Minutes): 30 <Kandy Perez - Last Filed: 06/02/24 14:58> Patient was seen and examined. Events of the last 24 hours have been noted. Spoke with with [facility]NA regarding patient's clinical picture after evaluating and examining the patient independently. I performed a substantial part of the MDM during this patient's care today. I personally made or approved the documented management plan and acknowledge its risk of complications. I agree with the findings and documentation provided in the MENA's notes. Patient clinically doing better. Will go ahead and dialyze again today. As well as dialysis on Monday which is his regular scheduled day. After the dialysis on Monday possible discharge home. <Tisha Oliveros - Last Filed: 06/03/24 02:51>
--- NOTE | 2024-06-02 13:24 | PN ---
Date of Progress Note: 06/02/2024 Subjective: The patient was admitted with overvolume after he missed his dialysis. The patient is status post dialysis yesterday. Tolerated the dialysis. We managed to remove 3.5 L. The patient still have shortness of breath. Has insomnia. Objective: Vital Signs: Blood pressure of 183/88. Chest: Crackles, bilateral. Heart: S1, S2. Regular. Abdomen: Soft, nontender. Extremities: Plus edema. Neuro: Alert. No focality. Laboratory Data: Hemoglobin 9.5, sodium 128, potassium 4.3, bicarb 26, BUN 51, creatinine 8.3, calcium 8.5, phosphorus 7.3. Current Medications: The patient on include Epogen, heparin, diphenhydramine, Lasix, Renvela. Assessment And Plan: 1. End-stage renal disease, overvolume, poor compliance with the fluid restriction. I am going to do another session of dialysis with sequential today and we will follow up. 2. Hypertension, not controlled. We will challenge the patient with the ultrafiltration. We will follow up blood pressure after. 3. Anemia of chronic kidney disease. Continue HASEEB. 4. Secondary hyperparathyroidism. Increase Renvela. 5. Congestive heart failure with exacerbation. We will challenge the patient. Time spent examining the patient [id number] reviewing the data and clapper and the radiology placing order discussing the case with the patient discussing the case with the steam turbine assembler including hospitalist and nursing staff more than 55 minutes RENAE Voice ID: [id number] Report ID: [id number] MARY
[2024-06-02] MEDS: SEVELAMER CARBONATE 800 MG TABLET PO SCH (16:47)
[2024-06-03] MEDS ORDERED: MELATONIN 5 MG TABLET PO PRN (04:03)
[2024-06-03] MEDS: MELATONIN 5 MG TABLET PO ONE (04:34)
[2024-06-03] MEDS: carvediloL 25 MG TAB PO SCH (05:56)
[2024-06-03 07:19] LABS: Albumin 3.5 g/dL (3.4-5.0); Anion Gap 15.3 mEq/L (5.0-15.0); Phosphorus 8.1 mg/dL (2.5-4.9); Potassium 4.3 mEq/L (3.5-5.1)
[2024-06-03] MEDS: HYDRALAZINE HCL 25 MG TABLET PO SCH (08:03)
--- NOTE | 2024-06-03 10:02 | EKG ---
Test Date: 2024-06-01 Test Time: 02:49:28 Stock Plan Administrator: KEYA MEASUREMENT RESULTS: Intervals: Rate: 79 MA: 176 QRSD: 94 QT: 406 QTc: 465 [place]: P: 32 MA: 176 QRS: 86 T: 32 INTERPRETIVE STATEMENTS: Normal sinus rhythm Normal ECG Compared to ECG 02/18/2024 02:21:10 First degree AV block no longer present Electronically Signed On 06-03-24 10:01:48 CDT by Jaxon Lawson
--- NOTE | 2024-06-03 13:03 | RAD REPORT ---
EXAM DESCRIPTION: XR Chest, 1 View CLINICAL HISTORY: The patient is 63 years old and is Male; CHEST PAIN TECHNIQUE: Frontal view of the chest. COMPARISON: No relevant prior studies available. FINDINGS: Lungs: Consolidation in the mid left lung. Pleural space: Left hemidiaphragm is somewhat obscured which can be seen with left pleural effusi on, as well as left lower lobe consolidation or atelectasis. No pneumothorax. Heart: Unremarkable. Mediastinum: Unremarkable. Normal mediastinal contour. Bones/joints: No acute findings. IMPRESSION: 1. Consolidation in the mid left lung. 2. Left hemidiaphragm is somewhat obscured which can be seen with left pleural effusion, as well as left lower lobe consolidation or atelectasis. Electronically signed by: Akil Yanez MD 06/01/2024 04:42 AM CDT RP 8 Due to temporary technical issues with the PACS/Fluency reporting system, reports are being signed by the in house radiologist without review as a courtesy to ensure prompt reporting. The interpreting r adiologist is fully responsible for the content of the report.
--- NOTE | 2024-06-03 15:00 | P.PN ---
Subjective Date of Service: 06/03/24 Chief Complaint: SOB Pt is resting comfortably in bed. He had dialysis this am. He is needs 1 more round of dislysis before we can dc her. Pt also has hyponatremia. No other complaint. Review of Systems General: Unremarkable Eyes: Unremarkable ENT: Unremarkable Respiratory: Unremarkable Cardiovascular: Unremarkable Gastrointestinal: Unremarkable Genitourinary: Unremarkable Musculoskeletal: Unremarkable Integumentary: Unremarkable Neurological: Unremarkable Lymphatics: Unremarkable Physical Examination - Vital Signs Temperature: 98 F Blood Pressure: 166/88 Pulse: 69 Respirations: 18 Pulse Ox (%): 93 - Physical Exam General: Alert, In no apparent distress, Oriented x3 HEENT: Atraumatic, Normocephalic Neck: Supple, 2+ carotid pulse no bruit, JVD not distended Respiratory: Clear to auscultation bilaterally, Normal air movement Cardiovascular: No edema, Normal pulses, Regular rate/rhythm Capillary refill: <2 Seconds Gastrointestinal: Normal bowel sounds, Soft and benign, Non-distended Musculoskeletal: No clubbing, No swelling, No contractures Integumentary: No rashes, No breakdown, No significant lesion Neurological: Normal gait, Normal speech, Normal strength at 5/5 x4 extr, Normal tone Lymphatics: No axilla or inguinal lymphadenopathy Assessment And Plan - Plan Fluid overload due to missed dialysis: Will continue Dialysis per schedule. Pt will have another dialysis tomorrow. Nephrology is following. Noncompliance with dialysis: pt was encouraged to be compliant. Hyperkalemia: K is 4.3. Will monitor. NSTEMI possibly type II due to fluid overload: pt denies any chest pain. Will trend troponin. Will continue to diurese. Cardiology is following. Hypertension: Continue home med. Hyperlipidemia: Continue statin Diabetes: Continue accuchek, SSI and ADA diet Anemia of chronic disease: Hgb is 9.5. Will monitor H/H. Will transfuse when Hgb < 7. DVT ppx: SCD Code: full
[2024-06-03] MEDS: HYDRALAZINE HCL 20 MG/ML VIAL IV PRN (17:05)
--- NOTE | 2024-06-03 18:28 | PN ---
Date of Progress Note: 06/03/2024 Chief Complaint: End-stage renal disease and volume overload. Hyponatremia. Subjective: The patient is dialysis dependent. He has end-stage renal disease. He has history of n oncompliance with dialysis schedule and he missed dialysis prior to this admission. Patient was flui d overloaded and there was urgent dialysis to control fluid overload and provide management for conge stive heart failure. The patient is undergoing daily dialysis to control fluid overload. The patien t is on p.o. fluid restriction. Review of Systems: Denies chest pain, palpitation. Objective: Lungs: Diminished breath sounds at bases. Heart: S1, S2. Abdomen: Soft. Benign. Extremities: Edema present in both legs. Laboratory Data: Sodium 128, potassium 4.3, bicarbonate 26, BUN 51, creatinine 8.3, calcium 8.5, sherry sphorus 7.3. Impression And Plan: 1.End-stage renal disease, fluid overload, generalized edema, hypertensive heart and kidney disease. Continue blood pressure medication and advance blood pressure medication to control blood pressure. Monitor fluid balance. The patient has severe fluid overload, which is contributory to congestive heart failure and uncontrolled hypertension. Continue p.o. fluid restriction. Continue daily dialys is with ultrafiltration to treat fluid overload. 2.Anemia of chronic disease. Continue HASEEB. 3.Secondary hyperparathyroidism. Monitor phosphorus level. Increase Renvela to control phosphorus level. 4.Congestive heart failure with exacerbation, diastolic with fluid overload. Continue daily dialysis and ultrafiltration for fluid removal. EB/MODL Voice ID: [id number] Report ID: [id number]
[2024-06-04] MEDS: ZOLPIDEM TARTRATE 10 MG TABLET PO PRN (00:39)
[2024-06-04 07:48] LABS: Absolute Basophils 0.1 K/uL (0-0.5); Absolute Eosinophils 0.1 K/uL (0-0.5); Absolute Lymphocytes (CBC) 0.7 K/uL (0.7-4.9); Absolute Monocytes 0.7 K/uL (0.1-1.3); Absolute Neutrophil 3.7 K/uL (1.8-8.0); Basophils % 1.1 % (0-1.3); Eosinophils % 2.3 % (0-4.4); Hematocrit 28.8 % (39.6-49.0); Hemoglobin 9.6 g/dL (13.6-17.9); MCH 29.2 pg (27.0-35.0); MCHC 33.3 g/dL (32.0-36.0); MCV 87.8 fL (80-100); MPV 7.5 fL (7.6-11.3); Monocytes % 13.2 % (3.3-12.3); Neutrophils % 70.4 % (41.7-73.7); Nucleated Red Blood Cells % 0.1 % (0-0); Platelets 189 thou/uL (152-406); RBC Red Blood Cell Count 3.28 M/uL (4.33-5.43); Red Cell Distribution Width 15.5 % (12.1-15.2)
[2024-06-04 08:05] LABS: Albumin 3.5 g/dL (3.4-5.0); Anion Gap 10.2 mEq/L (5.0-15.0); Phosphorus 5.7 mg/dL (2.5-4.9); Potassium 4.2 mEq/L (3.5-5.1)
[2024-06-04] MEDS: ONDANSETRON 4 MG/2 ML VIAL IV PRN (13:30)
--- NOTE | 2024-06-04 14:00 | P.PN ---
Subjective Date of Service: 06/04/24 Chief Complaint: SOB Pt is resting comfortably in bed. He is scheduled for dialysis today. Pt complains of SOB when he is off his oxygen. Sodium level is 126. No other complaint. Review of Systems General: Unremarkable Eyes: Unremarkable ENT: Unremarkable Respiratory: Unremarkable Cardiovascular: Unremarkable Gastrointestinal: Unremarkable Genitourinary: Unremarkable Musculoskeletal: Unremarkable Integumentary: Unremarkable Neurological: Unremarkable Lymphatics: Unremarkable Physical Examination - Vital Signs Temperature: 98.0 F Blood Pressure: 181/87 Pulse: 69 Respirations: 18 Pulse Ox (%): 94 - Physical Exam General: Alert, In no apparent distress, Oriented x3 HEENT: Atraumatic, Normocephalic, PERRLA Neck: Supple, 2+ carotid pulse no bruit, JVD not distended Respiratory: Clear to auscultation bilaterally, Normal air movement Cardiovascular: No edema, Normal pulses, Regular rate/rhythm Capillary refill: <2 Seconds Gastrointestinal: Normal bowel sounds, Soft and benign, Non-distended Musculoskeletal: No clubbing, No swelling, No contractures Integumentary: No rashes, No breakdown, No significant lesion Neurological: Normal gait, Normal speech, Normal strength at 5/5 x4 extr Lymphatics: No axilla or inguinal lymphadenopathy Assessment And Plan - Plan Fluid overload due to missed dialysis: Will continue Dialysis per schedule. Nephrology is following. Will do dialysis today. Cr is 8.2 Hyponatremia: Na is 126 <- 125. Likely due to volume overload. Will improve with dialysis. Noncompliance with dialysis: pt was encouraged to be compliant. Hyperkalemia: K is 4.2. Will monitor. NSTEMI possibly type II due to fluid overload: pt denies any chest pain. Will trend troponin. Will continue to diurese. Cardiology is following. Hypertension: Continue home med. Hyperlipidemia: Continue statin Diabetes: Continue accuchek, SSI and ADA diet Anemia of chronic disease: Hgb is 9.5. Will monitor H/H. Will transfuse when Hgb < 7. DVT ppx: SCD Code: full Dispo: Pendinghospital course and clearance by Nephrology
[2024-06-04] MEDS: HYDRALAZINE HCL 25 MG TABLET PO SCH (14:40)
--- NOTE | 2024-06-04 17:36 | PN ---
Date of Progress Note: 06/04/2024 Subjective: The patient was admitted to the hospital with overvolume. The patient with poor compliance with fluid restriction. The patient dialyzed yesterday. We managed to remove 3.5 L. Objective: General: When I saw the patient, the patient lying in bed. Vital Signs: Blood pressure 181/87, pulse of 69, afebrile. Chest: Crackles, bilateral. Heart: S1, S2. Systolic murmur. Abdomen: Soft, nontender. Extremities: Plus edema. Neurologic: Alert. No focality. Laboratory Data: Hemoglobin 9.6, sodium 126, potassium 4.2, bicarb 26, BUN 35, creatinine 8.2, calcium 8.4, phosphorus 5.7. Current Medications: The patient on, include diphenhydramine, albuterol, Epogen, carvedilol 25 b.i.d., hydralazine 25 t.i.d., Ambien, Lasix, Renvela. Assessment And Plan: 1. End-stage renal disease, overvolume. We advised the patient for sequential today just 2 hours with challenging. Patient refused. We explained to the patient risks, benefits, alternatives, and the need for the dialysis. The patient still refused. We will arrange for dialysis tomorrow and we will challenge the patient and we will follow up the patient. 2. Hypertension. We will utilize the blood pressure for more ultrafiltration. Increase hydralazine 50 mg t.i.d. and we will follow up. 3. Anemia of chronic kidney disease. Continue HASEEB. 4. Secondary hyperparathyroidism. Continue Renvela. Time spent examining the patient [id number] reviewing the data and clapper and the radiology placing order discussing the case with the patient discussing the case with the cleaning team member including hospitalist and nursing staff more than 55 minutes RENAE Voice ID: [id number] Report ID: [id number] MARY
[2024-06-05 09:07] LABS: Absolute Basophils 0.1 K/uL (0-0.5); Absolute Eosinophils 0.1 K/uL (0-0.5); Absolute Lymphocytes (CBC) 0.8 K/uL (0.7-4.9); Absolute Monocytes 0.7 K/uL (0.1-1.3); Absolute Neutrophil 4.4 K/uL (1.8-8.0); Basophils % 0.8 % (0-1.3); Eosinophils % 2.3 % (0-4.4); Hematocrit 29.6 % (39.6-49.0); Hemoglobin 9.6 g/dL (13.6-17.9); Lymphocytes % 13.3 % (15.3-44.8); MCHC 32.3 g/dL (32.0-36.0); MCV 89.8 fL (80-100); MPV 7.6 fL (7.6-11.3); Monocytes % 11.2 % (3.3-12.3); Neutrophils % 72.4 % (41.7-73.7); Platelets 213 thou/uL (152-406); Red Cell Distribution Width 15.6 % (12.1-15.2)
[2024-06-05 09:18] LABS: Anion Gap 12.9 mEq/L (5.0-15.0); Potassium 4.9 mEq/L (3.5-5.1)
--- NOTE | 2024-06-05 12:27 | PN ---
Date of Progress Note: 06/05/2024 Subjective: The patient was admitted to the hospital with over volume. The patient dialyzes daily, yesterday refused dialysis. Today, seen on dialysis. Physical Examination: Vital Signs: Blood pressure of 175/87, pulse of 62. Chest: Crackles bilateral. Heart: S1, S2. Systolic murmur. Abdomen: Soft, nontender. Extremities: Plus edema. Neuro: Alert. No focality. Laboratory Data: Hemoglobin 9.6. Sodium 126, potassium 4.9, bicarb 27, BUN 47, creatinine 10.7, calcium 8.4. Current Medications: The patient is on include carvedilol 25 b.i.d., hydralazine 50 t.i.d., albuterol, Ambien, furosemide, and Renvela. Assessment And Plan: 1. End-stage renal disease, over volume. We will continue dialysis. We will challenge the patient today and we will follow up. 2. Hypertension, controlled, not optimal. I am going to add lisinopril given congestive heart failure, and we will challenge the patient. We will follow up blood pressure post dialysis. 3. Anemia of chronic kidney disease. Continue HASEEB. 4. Secondary hyperparathyroidism. We will continue Renvela. 5. Congestive heart failure with exacerbation, poor compliance with fluid restriction. We will follow up with primary. Continue to challenge the patient. Time spent examining the patient [id number] reviewing the data and clapper and the radiology placing order discussing the case with the patient discussing the case with the bakery team member including hospitalist and nursing staff more than 55 minutes RENAE Voice ID: [id number] Report ID: [id number] MARY
--- NOTE | 2024-06-05 12:42 | P.PN ---
Subjective Date of Service: 06/05/24 Chief Complaint: SOB Pt is resting comfortably in bed. He complained of feeling volume overload. Pt is scheduled to have dialysis today. Sodium level is 126. No other complaint. Review of Systems General: Unremarkable Eyes: Unremarkable ENT: Unremarkable Respiratory: SOB with Excertion Cardiovascular: Unremarkable Gastrointestinal: Unremarkable Genitourinary: Unremarkable Musculoskeletal: Unremarkable Integumentary: Unremarkable Neurological: Unremarkable Lymphatics: Unremarkable Physical Examination - Vital Signs Temperature: 97.8 F Blood Pressure: 175/87 Pulse: 68 Respirations: 20 Pulse Ox (%): 95 - Physical Exam General: Alert, In no apparent distress, Oriented x3 HEENT: Atraumatic, Normocephalic, PERRLA Neck: Supple, 2+ carotid pulse no bruit Respiratory: Clear to auscultation bilaterally, Normal air movement Cardiovascular: No edema, Normal pulses, Regular rate/rhythm Capillary refill: <2 Seconds Gastrointestinal: Normal bowel sounds, Soft and benign, Non-distended Musculoskeletal: No clubbing, No swelling, No contractures Integumentary: No rashes, No breakdown, No significant lesion, No tenderness/swelling Neurological: Normal gait, Normal speech, Normal strength at 5/5 x4 extr, Normal tone, Sensation intact Lymphatics: No axilla or inguinal lymphadenopathy Assessment And Plan - Plan Fluid overload due to missed dialysis: Will continue Dialysis per schedule. Nephrology is following. He did not do dialysis on 06/04/24. Will do dialysis today. Cr is 8.2 Hyponatremia: Na is 126 <- 125. Likely due to volume overload. Will improve with dialysis. Noncompliance with dialysis: pt was encouraged to be compliant. Hyperkalemia: K is 4.2. Will monitor. NSTEMI possibly type II due to fluid overload: pt denies any chest pain. Will trend troponin. Will continue to diurese. Cardiology is following. Hypertension: Continue home med. Hyperlipidemia: Continue statin Diabetes: Continue accuchek, SSI and ADA diet Anemia of chronic disease: Hgb is 9.6. Will monitor H/H. Will transfuse when Hgb < 7. DVT ppx: SCD Code: full Dispo: Pendinghospital course and clearance by Nephrology
[2024-06-05 20:48] VITALS: O2SAT 94
[2024-06-06] MEDS: lisinopriL 20 MG TAB PO SCH (08:27)
[2024-06-06 12:30] VITALS: BP 144/71; TEMP 98.4
--- NOTE | 2024-06-06 12:31 | P.DS ---
Admission Date: 06/01/24 Discharge Date: 06/06/24 Disposition: ROUTINE DISCHARGE Discharge Condition: GOOD Reason for Admission: SOB Brief History of Present Illness: 63-year-old male patient with medical history significant for ESRD on dialysis Monday, Monday, Monday , hypertension, diabetes type 2, history of anemia of chronic kidney disease who missed dialysis yesterday came to ER with shortness of breath and chest discomfort and back pain. Patient denies any fever or chills. Denies any nausea vomiting or diarrhea. Patient complains of shortness of breath even with minimal exertion. Patient was assessed in the ER and was noted to have fluid overload and was admitted for further management and for dialysis this morning. He was also noted to have elevated troponin. Patient also complains of back pain, he has history of chronic back pain . Denies any trauma Hospital Course: Pt is a 63yo male with past medical history of ESRD on dialysis MWF, hypertension, diabetes type 2, and anemia of chronic kidney disease who presented with shortness of breath, chest discomfort and back pain. Of note, pt reported that he missed his last dialysis session. On admission, lab studies showed elevated troponin. We admitted pt for volume overload and consulted nephrology for dialysis. We monitored chronic hyponatremia and encouraged pt to be compliant with home meds and appointments. We continued home meds for other chronic medical problems. Vital Signs/Physical Exam: Temp Pulse Resp BP Pulse Ox 98.4 F 75 22 H 144/71 H 91 06/06/24 12:00 06/06/24 12:00 06/06/24 12:00 06/06/24 12:00 06/06/24 12:00 Laboratory Data at Discharge: WBC 6.10 thou/uL (4.3-10.9) 06/05/24 08:47 Hgb 9.6 g/dL (13.6-17.9) L 06/05/24 08:47 Hct 29.6 % (39.6-49.0) L 06/05/24 08:47 Plt Count 213 thou/uL (152-406) 06/05/24 08:47 PT 11.1 SECONDS (9.4-12.5) 06/01/24 03:07 INR 0.99 06/01/24 03:07 Sodium 126 mEq/L (136-145) L 06/05/24 08:47 Potassium 4.9 mEq/L (3.5-5.1) D 06/05/24 08:47 BUN 47 mg/dL (7-18) H 06/05/24 08:47 Creatinine 10.70 mg/dL (0.70-1.30) H 06/05/24 08:47 Glucose 88 mg/dL (74-106) 06/05/24 08:47 Phosphorus 5.7 mg/dL (2.5-4.9) H 06/04/24 07:08 Magnesium 2.5 mg/dL (1.6-2.4) H 06/01/24 03:07 Total Bilirubin 0.6 mg/dL (0.2-1.0) 06/02/24 06:19 AST 11 U/L (15-37) L 06/02/24 06:19 ALT 18 U/L (16-61) 06/02/24 06:19 Alkaline Phosphatase 67 U/L (45-117) 06/02/24 06:19 Home Medications: Amlodipine Besylate/Benazepril [Amlodipine-Benazepril 10-20 mg] 1 cap PO TID 06/01/24 Hydralazine [Apresoline*] 25 mg PO TID 30 Days #90 tab 06/06/24 Hydrocodone 5/APAP 325 [Searcy 5/325] 1 tab PO Q6H PRN 7 Days #30 tab 06/06/24 Sevelamer Carbonate [Renvela] 3,200 mg PO TIDWM 30 Days #90 tablet 06/06/24 Zolpidem Tartrate [Ambien] 10 mg PO BEDTIME PRN PRN 15 Days #15 tab 06/06/24 carvediloL [Coreg] 25 mg PO BID 30 Days #60 tab 06/06/24 New Medications: Zolpidem Tartrate [Ambien] 10 mg PO BEDTIME PRN PRN 15 Days #15 tab PRN Reason: Insomnia Hydralazine [Apresoline*] 25 mg PO TID 30 Days #90 tab carvediloL [Coreg] 25 mg PO BID 30 Days #60 tab Hydrocodone 5/APAP 325 [Searcy 5/325] 1 tab PO Q6H PRN 7 Days #30 tab PRN Reason: Pain Sevelamer Carbonate [Renvela] 3,200 mg PO TIDWM 30 Days #90 tablet Physician Discharge Instructions: -DC IV and DC home -Follow-up with PCP in 1 to 2 weeks -Follow-up with Cardiology as an outpatient in 1 to 2 weeks -Follow-up with Nephrology as an outpatient for hemodialysis on Monday, Monday, and Fridays as scheduled as well as nephrology follow-up as an outpatient over the next 2 weeks -Please call Dr. Oliveros at [phone] if any questions regarding hospital stay -Please call nursing station at [phone] if any nursing or medication questions -Return to the emergency room if symptoms worsen Diet: Renal Activity: Fall precautions Followup: Constantin Ellison MD [ACTIVE - CAN ADMIT] - 1-2 Weeks Toya Andrew DO, DO [Primary Care Provider] - 1-2 Weeks Jaxon Lawson MD [ACTIVE - CAN ADMIT] - 1-2 Weeks
[2024-06-06 14:39] LABS: Anion Gap 13.7 mEq/L (5.0-15.0); Potassium 4.7 mEq/L (3.5-5.1)
--- NOTE | 2024-06-06 18:42 | PN ---
Date of Progress Note: 06/06/2024 Subjective: The patient was admitted with overvolume, congestive heart failure, secondary to poor co mpliance with fluid restriction. Patient had been dialyzed daily yesterday. We managed to dialyze t he patient. We removed 6 L. Objective: Chest: Clear to auscultation. Heart: S1, S2. Regular. Abdomen: Soft, nontender. Extremity: Trace edema. Neuro: Alert. No focality. Laboratory Data: Hemoglobin 9.6. Lab still pending. Assessment And Plan: 1.End-stage renal disease with overvolume, currently normal volume. We will back the patient to [facility] Monday, Monday, Monday. The patient cleared from the Renal standpoint for discharge planning . 2.Hypertension. We will utilize the blood pressure for more ultrafiltration. 3.Secondary hyperparathyroidism. Continue binder. 4.Anemia of chronic kidney disease, stable. Continue HASEEB. 5.Congestive heart failure with exacerbation, as above. RENAE Voice ID: [id number] Report ID: [id number]
== END 2024-06-06 15:14 | disposition home or self-care (01) | DRG 280 ==
LOC: ER 02:45 → 2ND 04:41
PROVIDERS: ADMIT Family Medicine; ATTEND Hospitalist
PROC: 5A1D70Z Performance of Urinary Filtration, Intermittent, Less than 6 Hours Per Day (ICD-10-PCS; principal; 2024-06-01)
DX: I13.2 Hypertensive heart and chronic kidney disease with heart failure and with stage 5 chronic kidney disease, or end stage renal disease (principal); I50.33 Acute on chronic diastolic (congestive) heart failure; I21.A1 Myocardial infarction type 2; N18.6 End stage renal disease; N25.81 Secondary hyperparathyroidism of renal origin; E87.1 Hypo-osmolality and hyponatremia; E11.22 Type 2 diabetes mellitus with diabetic chronic kidney disease; E11.40 Type 2 diabetes mellitus with diabetic neuropathy, unspecified; D63.1 Anemia in chronic kidney disease; E87.5 Hyperkalemia; G47.00 Insomnia, unspecified; E78.5 Hyperlipidemia, unspecified; G89.29 Other chronic pain; M54.50 Low back pain, unspecified; R79.89 Other specified abnormal findings of blood chemistry; Z99.2 Dependence on renal dialysis; Z79.02 Long term (current) use of antithrombotics/antiplatelets; Z79.899 Other long term (current) drug therapy; Z91.158 Patient's noncompliance with renal dialysis for other reason
CPT/HCPCS: 36415; 71045; 80048; 80053; 80069; 80076; 82947; 83735; 83880; 84484; 85025; 85610; 90935; 93005; 94760; 96372; 96374; 96375; 99285; J0360; J1170; J1644; J1940; J2270; J2405; Q4081

== ENCOUNTER 2024-06-24 13:12 | Emergency (ER) | payer OTHER ==
[2024-06-24] MEDS ORDERED: DIPHENHYDRAMINE 50 MG/ML VIAL ONE (13:29)
[2024-06-24 13:46] LABS: Absolute Basophils 0.1 K/uL (0-0.5); Absolute Eosinophils 0.2 K/uL (0-0.5); Absolute Lymphocytes (CBC) 0.6 K/uL (0.7-4.9); Absolute Monocytes 0.7 K/uL (0.1-1.3); Absolute Neutrophil 4.8 K/uL (1.8-8.0); Basophils % 1.2 % (0-1.3); Eosinophils % 3.6 % (0-4.4); Hematocrit 35.3 % (39.6-49.0); Hemoglobin 11.4 g/dL (13.6-17.9); Lymphocytes % 9.3 % (15.3-44.8); MCH 28.4 pg (27.0-35.0); MCHC 32.2 g/dL (32.0-36.0); MCV 88.1 fL (80-100); MPV 7.9 fL (7.6-11.3); Monocytes % 10.4 % (3.3-12.3); Neutrophils % 75.5 % (41.7-73.7); Platelets 245 thou/uL (152-406); Red Cell Distribution Width 15.3 % (12.1-15.2)
[2024-06-24 14:04] LABS: Anion Gap 11.7 mEq/L (5.0-15.0); Potassium 3.7 mEq/L (3.5-5.1); Troponin High Sensitivity 39.7 pg/mL (<58.9)
[2024-06-24] MEDS ORDERED: hydrOXYzine HCL 25 MG TAB ONE (15:28)
--- NOTE | 2024-06-24 15:44 | EDPHYS ---
Physician Documentation [facility] Name: Alex Cagle Age: 63 yrs Sex: Male : 1960 Arrival Date: 06/24/2024 Time: 13:12 Bed 14 Private MD: ED Physician Rodríguez Olguin HPI: 06/24 13:31 This 63 yrs old Male presents to ER via EMS with complaints of chest pain. rn 13:31 The patient or guardian reports chest pain that is located primarily in the substernal rn area. Onset: just prior to arrival. The pain does not radiate. Associated signs and symptoms: Pertinent negatives: abdominal pain, cough, diaphoresis, shortness of breath, syncope, vomiting. The chest pain is described as aching. Duration: The patient or guardian reports a single episode, that is now resolved. Modifying factors: The symptoms are alleviated by nothing. the symptoms are aggravated by nothing. Severity of pain: At its worst the pain was mild in the emergency department the pain has resolved. The patient has experienced similar episodes in the past. Patient brought in by EMS from dialysis center for chest pain, substernal and left-sided. Patient was sleeping during dialysis, 3 L removed, was difficult to arouse and when he woke up started complaining of left-sided chest pain. Patient reports intermittent chest pain with recent admission thought to be secondary to hypertension. patient denies previous heart attack or stent. Given aspirin and nitro by EMS and now reports chest pain resolved. No abdominal pain. No vomiting. No shortness of breath.. Historical: - Allergies: 13:27 NKA; mb9 - Home Meds: 13:27 acetaminophen-codeine 300-30 mg Oral tab every 6 hours [Active]; carvedilol 12.5 mg mb9 Oral tablet [Active]; - PMHx: 13:27 CHF; insomnia; ESRD; dialysis on M/W/F; Hypertension; Diabetes - NIDDM; mb9 - PSHx: 13:27 bilateral knee repairs; R shoulder; mb9 - Immunization history:: Adult Immunizations up to date. - Infectious Disease History:: Denies. - Social history:: Smoking status: Patient denies any tobacco usage or history of. - Family history:: not pertinent. - Hospitalizations: : The patient was recently seen at [facility]. ROS: 13:31 Constitutional: Negative for fever, chills, and weight loss, Cardiovascular: Positive rn for chest pain Respiratory: Negative for shortness of breath, cough, wheezing Abdomen/GI: Negative for abdominal pain, nausea, vomiting, diarrhea, and constipation, MS/Extremity: Negative for injury and deformity, Skin: Negative for injury, rash, and discoloration, Neuro: Negative for headache, weakness, numbness, tingling, and seizure, Exam: 13:31 Constitutional: This is a well developed, well nourished patient who is awake, alert, rn and in no acute distress. Cardiovascular: Regular rate and rhythm. No pulse deficits. Respiratory: Speaking full sentences, unlabored. No increased work of breathing, no retractions or nasal flaring. Abdomen/GI: Soft, non-tender MS/ Extremity: Pulses equal, no cyanosis. Neuro: Awake and alert, GCS 15 Vital Signs: 13:25 BP 159 / 85; Pulse 67; Resp 18; Temp 98; Pulse Ox 100% ; Weight 90.72 kg; Height 5 ft. mb9 8 in. ; Pain 6/10; 14:55 BP 184 / 83; Pulse 73; Resp 18; Pulse Ox 98% on R/A; me1 15:56 BP 159 / 76; Pulse 70; Resp 19; Temp 98.4; Pulse Ox 97% on R/A; me1 13:25 Body Mass Index 30.41 (90.72 kg, 172.72 cm) mb9 13:25 Pain Scale: Adult mb9 MDM: 13:28 Patient medically screened. rn 15:26 Differential diagnosis: acute myocardial infarction, acute pericarditis, coronary rn artery disease costochondritis, pleurisy, pneumonia, pneumothorax, pulmonary edema. Data reviewed: vital signs, nurses notes, lab test result(s), EKG, radiologic studies, plain films, and as a result, I will discharge patient. Care significantly affected by the following chronic conditions: Chronic Kidney Disease. Counseling: I had a detailed discussion with the patient and/or guardian regarding the historical points, exam findings, and any diagnostic results supporting the discharge/admit diagnosis, lab results, radiology results, the need for outpatient follow up, to return to the emergency department if symptoms worsen or persist or if there are any questions or concerns that arise at home. Special discussion: Based on the patient's history, exam, and Dx evaluation, there is no indication for emergent intervention or inpatient Tx. It is understood by the patient/guardian that if the Sx's persist or worsen they need to return immediately for re-evaluation. I discussed with the patient/guardian in detail that at this point there is no indication for admission to the hospital. It is understood, however, that if the symptoms persist or worsen the patient needs to return immediately for re-evaluation. ED course: Troponin negative. EKG without ischemia. Mild pulmonary edema on chest x-ray but improved aeration compared to chest x-ray on June 10, 2024. No indication for emergent admission. No oxygen requirement. Chest pain resolved prior to arrival. Chest pain possibly secondary to pulmonary edema.. 15:48 Independent interpretation of the following test(s) in the Emergency Department X-Ray: rn My interpretation is Chest x-ray image shows mild pulmonary edema per my interpretation. 06/24 13:29 Order name: Basic Metabolic Panel; Complete Time: 14:07 06/24 13:29 Order name: CBC with Diff; Complete Time: 14: 06/24 13:29 Order name: NT PRO-BNP; Complete Time: 14: rn 06/24 13:29 Order name: Troponin HS; Complete Time: 14: rn 06/24 13:29 Order name: XRAY Chest (1 view); Complete Time: 15:47 rn 06/24 13:29 Order name: EKG; Complete Time: 13:30 rn 06/24 13:29 Order name: Cardiac monitoring; Complete Time: 13:30 rn 06/24 13:29 Order name: EKG - Nurse/Tech; Complete Time: 13:30 rn 06/24 13:29 Order name: IV Saline Lock; Complete Time: 13:30 rn 06/24 13:29 Order name: Labs collected and sent; Complete Time: 13:30 rn 06/24 13:29 Order name: O2 Per Protocol; Complete Time: 13:30 rn 06/24 13:29 Order name: O2 Sat Monitoring; Complete Time: 13:30 rn Administered Medications: 13:36 Drug: diphenhydrAMINE IVP 25 mg IVP once Route: IVP; Site: right forearm; mb9 14:51 Follow up: Response: No adverse reaction mb9 15:01 Follow up: Response: No adverse reaction; No change in condition me1 15:31 Drug: hydrOXYzine PO 25 mg PO once Route: PO; me1 15:56 Follow up: Response: No adverse reaction; Marked relief of symptoms me1 Disposition Summary: 06/24/24 15:43 Discharge Ordered Notes: Location: Home rn Problem: new rn Symptoms: have improved rn Condition: Stable rn Diagnosis - Chest pain, unspecified rn - Acute pulmonary edema rn - End stage renal disease rn Followup: rn - With: Private Physician - When: As needed - Reason: Recheck today's complaints, Re-evaluation by your physician Discharge Instructions: - Discharge Summary Sheet rn - Nonspecific Chest Pain, Adult rn - Pulmonary Edema 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
--- NOTE | 2024-06-24 15:44 | ER ---
Nurse's Notes [facility] Name: Alex Cagle Age: 63 yrs Sex: Male : 1960 Arrival Date: 06/24/2024 Time: 13:12 Bed 14 Private MD: Diagnosis: Chest pain, unspecified;Acute pulmonary edema;End stage renal disease Presentation: 06/24 13:25 Chief complaint: EMS states: "toned out for CP that started while at Dialysis. Dialysis mb9 only pulled 3 out of 4 liters off. 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 Coronavirus screen: Vaccine status: Patient reports being unvaccinated. Ebola Screen: No symptoms or risks identified at this time. Initial Sepsis Screen: Does the patient meet any 2 criteria? No. Patient's initial sepsis screen is negative. Does the patient have a suspected source of infection? No. Patient's initial sepsis screen is negative. Risk Assessment: Do you want to hurt yourself or someone else? Patient reports no desire to harm self or others. Onset of symptoms was June 24, 2024. 13:25 Acuity: DEJAN 2 mb9 13:25 Method Of Arrival: EMS: [facility] mb9 Triage Assessment: 13:28 General: Appears in no apparent distress. Behavior is calm, cooperative. Pain: mb9 Complains of pain in chest Pain does not radiate. Pain currently is 8 out of 10 on a pain scale. Quality of pain is described as sharp, Pain began suddenly. EENT: No signs and/or symptoms were reported regarding the EENT system. Neuro: Linder Agitation-Sedation Scale (RASS): 0 - Alert and Calm Level of Consciousness is awake, alert, obeys commands, Oriented to person, place, time, situation, Appropriate for age. Cardiovascular: Patient's skin is warm and dry. Respiratory: Airway is patent Respiratory effort is even, unlabored, Respiratory pattern is regular, symmetrical. GI: Abdomen is round non-distended, Bowel sounds present X 4 quads. : No signs and/or symptoms were reported regarding the genitourinary system. Derm: Skin is pink, warm \\T\\ dry. Musculoskeletal: Range of motion: intact in all extremities. Historical: - Allergies: 13:27 NKA; mb9 - Home Meds: 13:27 acetaminophen-codeine 300-30 mg Oral tab every 6 hours [Active]; carvedilol 12.5 mg mb9 Oral tablet [Active]; - PMHx: 13:27 CHF; insomnia; ESRD; dialysis on M/W/F; Hypertension; Diabetes - NIDDM; mb9 - PSHx: 13:27 bilateral knee repairs; R shoulder; mb9 - Immunization history:: Adult Immunizations up to date. - Infectious Disease History:: Denies. - Social history:: Smoking status: Patient denies any tobacco usage or history of. - Family history:: not pertinent. - Hospitalizations: : The patient was recently seen at [facility]. Screenin:29 [facility] ED Fall Risk Assessment (Adult) History of falling in the last 3 months, mb9 including since admission No falls in past 3 months (0 pts) Confusion or Disorientation No (0 pts) Intoxicated or Sedated No (0 pts) Impaired Gait No (0 pts) Mobility Assist Device Used No (0 pt) Altered Elimination No (0 pt) Score/Fall Risk Level 0 - 2 = Low Risk Oriented to surroundings, Maintained a safe environment, Educated pt \\T\\ family on fall prevention, incl call for assistance when getting out of bed. Abuse screen: Denies threats or abuse. Nutritional screening: No deficits noted. Tuberculosis screening: No symptoms or risk factors identified. Assessment: 13:29 Reassessment: see triage assessment. mb9 13:35 General: Appears in no apparent distress. well groomed, well developed, well nourished, me1 Behavior is calm, cooperative, appropriate for age, Reports chest pain during dialysis. Pain: Complains of pain in chest Pain does not radiate. Pain Quality of pain is described as heavy, Pain began suddenly, Is continuous. Neuro: Level of Consciousness is awake, alert, obeys commands, Oriented to person, place, time, situation, Appropriate for age. Cardiovascular: Patient's skin is warm and dry. Cardiovascular: Reports chest pain. Respiratory: Airway is patent Respiratory effort is even, unlabored, Respiratory pattern is regular, symmetrical. GI: No signs and/or symptoms were reported involving the gastrointestinal system. : No signs and/or symptoms were reported regarding the genitourinary system. EENT: No signs and/or symptoms were reported regarding the EENT system. Derm: Skin is intact, is healthy with good turgor, Skin is pink, warm \\T\\ dry. Reports itching. Musculoskeletal: No signs and/or symptoms reported regarding the musculoskeletal system. Vital Signs: 13:25 BP 159 / 85; Pulse 67; Resp 18; Temp 98; Pulse Ox 100% ; Weight 90.72 kg; Height 5 ft. mb9 8 in. ; Pain 6/10; 14:55 BP 184 / 83; Pulse 73; Resp 18; Pulse Ox 98% on R/A; me1 15:56 BP 159 / 76; Pulse 70; Resp 19; Temp 98.4; Pulse Ox 97% on R/A; me1 13:25 Body Mass Index 30.41 (90.72 kg, 172.72 cm) mb9 13:25 Pain Scale: Adult mb9 ED Course: 13:25 Patient arrived in ED. mb9 13:27 Triage completed. mb9 13:27 Arm band placed on. mb9 13:28 Rodríguez Olguin MD is Attending Physician. rn 13:29 Initial lab(s) drawn, by vt, sent to lab. EKG done, by ED staff, reviewed by Rodríguez Olguin MD. 13:29 No provider procedures requiring assistance completed. Maintain EMS IV. Dressing mb9 intact. Good blood return noted. Site clean \\T\\ dry. Gauge \\T\\ site: 20 g right FA. Flushed with 10 mL NS. 13:30 Mervat Sweet, KATIANA is Primary Nurse. mb9 13:30 Placed in gown. Bed in low position. Call light in reach. Side rails up X 1. Provided mb9 Education on: press call light if needing anything. Client placed on continuous cardiac and pulse oximetry monitoring. NIBP monitoring applied. 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 14:00 Report given to KATIANA Bucio. mb9 14:49 XRAY Chest (1 view) In Process Unspecified. EDMS 14:54 Rupinder Nicole, RN is Primary Nurse. me1 16:07 IV discontinued, intact, bleeding controlled, No redness/swelling at site. Pressure me1 dressing applied. Administered Medications: 13:36 Drug: diphenhydrAMINE IVP 25 mg IVP once Route: IVP; Site: right forearm; mb9 14:51 Follow up: Response: No adverse reaction mb9 15:01 Follow up: Response: No adverse reaction; No change in condition me1 15:31 Drug: hydrOXYzine PO 25 mg PO once Route: PO; me1 15:56 Follow up: Response: No adverse reaction; Marked relief of symptoms me1 Medication: 13:30 VIS not applicable for this client. mb9 Outcome: 15:43 Discharge ordered by . rn 16:07 Discharged to home ambulatory, vt1 16:07 Condition: stable 16:07 Discharge instructions given to patient, Instructed on discharge instructions, follow up and referral plans. Demonstrated understanding of instructions, follow-up care, 16:11 Patient left the ED. me1 Signatures: Dispatcher [employer] EDRodríguez Suarez MD MD rn Wilkerson, Mary Beth, RN RN 9 Rupinder Nicole RN RN vt1
--- NOTE | 2024-06-24 15:46 | RAD REPORT ---
EXAMINATION: ONE VIEW CHEST XR CLINICAL INDICATION: Male, 63 years old. [facility] MAIN CHEST PAIN Bed Name: 14 TECHNIQUE: Frontal chest projection is submitted. Examination is limited by patient positioning and t echnique. COMPARISON: 06/10/2024 chest radiograph FINDINGS: The lungs are well inflated and clear. No pneumothorax or sizable effusion. The heart is upper limit of normal in size. IMPRESSION: No acute intrathoracic abnormalities. No significant interval change.
[2024-06-24 16:31] VITALS: BP 159/76; TEMP 98.4; O2SAT 97
--- NOTE | 2024-06-25 16:59 | EKG ---
Test Date: 2024-06-24 Test Time: 13:20:29 Post Secondary Professional: MB MEASUREMENT RESULTS: Intervals: Rate: 73 NC: 208 QRSD: 86 QT: 436 QTc: 480 [place]: P: 31 NC: 208 QRS: 84 T: 62 INTERPRETIVE STATEMENTS: Sinus rhythm with premature supraventricular complexes and premature ventricular complexes or fusion complexes Nonspecific ST abnormality Prolonged QT Abnormal ECG Compared to ECG 06/10/2024 05:57:55 Atrial premature complex(es) now present Fusion complex(es) now present Ventricular premature complex(es) now present ST (T wave) deviation now present Prolonged QT interval now present Electronically Signed On 06-25-24 16:55:12 CDT by Robby Cobb
== END 2024-06-24 16:11 | disposition home or self-care (01) ==
LOC: ER 13:12
DX: R07.89 Other chest pain (principal); J81.0 Acute pulmonary edema; E11.22 Type 2 diabetes mellitus with diabetic chronic kidney disease; I13.2 Hypertensive heart and chronic kidney disease with heart failure and with stage 5 chronic kidney disease, or end stage renal disease; I50.9 Heart failure, unspecified; N18.6 End stage renal disease; Z99.2 Dependence on renal dialysis
CPT/HCPCS: 93005; 85025; 80048; 36415; 84484; 83880; 71045; 96374; 99285; J1200

== ENCOUNTER 2024-07-15 03:31 | Inpatient (IN) | payer OTHER ==
[2024-07-15] MEDS ORDERED: DEXTROSE ORAL 40% 15 GM TUBE ONE (03:51)
[2024-07-15] MEDS ORDERED: GLUCAGON 1 MG/VIAL ONE (03:52)
[2024-07-15] MEDS ORDERED: D10W 250 ML IV ONE (04:14)
[2024-07-15 04:20] LABS: Absolute Eosinophils 0.2 K/uL (0-0.5); Absolute Lymphocytes (CBC) 0.7 K/uL (0.7-4.9); Absolute Monocytes 0.5 K/uL (0.1-1.3); Absolute Neutrophil 4.4 K/uL (1.8-8.0); Basophils % 0.6 % (0-1.3); Eosinophils % 3.8 % (0-4.4); Hematocrit 34.3 % (39.6-49.0); Hemoglobin 11.3 g/dL (13.6-17.9); Lymphocytes % 11.5 % (15.3-44.8); MCH 29.1 pg (27.0-35.0); MCHC 33.1 g/dL (32.0-36.0); MCV 87.9 fL (80-100); MPV 7.1 fL (7.6-11.3); Monocytes % 9.4 % (3.3-12.3); Neutrophils % 74.7 % (41.7-73.7); Nucleated Red Blood Cells % 0.1 % (0-0); Platelets 181 thou/uL (152-406); RBC Red Blood Cell Count 3.91 M/uL (4.33-5.43); Red Cell Distribution Width 15.4 % (12.1-15.2)
[2024-07-15 04:50] LABS: Anion Gap 15.9 mEq/L (5.0-15.0); Potassium 4.9 mEq/L (3.5-5.1)
--- NOTE | 2024-07-15 05:44 | RAD REPORT ---
EXAMINATION: XR CHEST 1 VIEW INDICATION: Male, 63 years old, COUGH TECHNIQUE: 1 view COMPARISON(S): 06/01/2024 FINDINGS: SUPPORT DEVICES: None. LUNGS/PLEURA: Perihilar interstitial prominence. No consolidation, pleural effusion or pneumothorax. HEART/MEDIASTINUM: Enlarged heart size with central pulmonary vascular prominence. Aortic atheroscler osis. OTHER: No acute osseous findings. IMPRESSION: Heart failure pattern without acute cardiopulmonary findings. Electronically signed by: Hollis Perry MD 07/15/2024 05:17 AM CDT Due to temporary technical issues with the PACS/Likel[employer] reporting system, reports are being micheal d by the in-house radiologist without review as a courtesy to ensure prompt reporting the interpreting radiologist is fully responsible for the content of the report. Transcribed Date/Time: 07/15/2024 5:44 AM
--- NOTE | 2024-07-15 06:00 | RAD REPORT ---
EXAMINATION: CT HEAD WITHOUT IV CONTRAST INDICATION: Male, 63 years old, CONFUSED COMPARISON(S): 02/19/2024 TECHNIQUE: CT acquisition of the head without contrast. Coronal and sagittal reformatted images provi ded. This exam was performed according to departmental dose-optimization program which includes automated exposure control, adjustment of the mA and/or kV according to patient size, and/or use of i terative reconstruction technique. FINDINGS: Brain: No evidence of intracranial hemorrhage, mass effect, or midline shift. Unchanged focal cystic lesion in the left basal ganglia. Moderate cerebral white matter hypodensity with parenchymal volume loss most likely due to chronic microvascular ischemic changes. CSF Spaces: Moderate symmetric enlargement of the ventricles and sulci. Osseous: No acute findings. Soft tissue: No evidence of scalp or soft tissue injury. Orbits: The globes and orbits are unremarkable. Sinuses/Mastoids: Visualized portions are clear. IMPRESSION: 1. No acute intracranial finding. 2. Sequela of chronic microangiopathy. Electronically signed by: Hollis Perry MD 07/15/2024 05:21 AM CDT Due to temporary technical issues with the PACS/[employer] reporting system, reports are being micheal d by the in-house radiologist without review as a courtesy to ensure prompt reporting the interpreting radiologist is fully responsible for the content of the report. Transcribed Date/Time: 07/15/2024 5:59 AM
--- NOTE | 2024-07-15 06:01 | EDPHYS ---
Physician Documentation [facility] Name: Alex Cagle Age: 63 yrs Sex: Male : 1960 Arrival Date: 07/15/2024 Time: 03:31 Bed 14 Private MD: ED Physician Ciaran Mccracken HPI: 07/15 03:48 This 63 yrs old Male presents to ER via Unassigned with complaints of Altered Mental ec2 Status. 03:48 Patient arrives today for evaluation of reported altered mental status, tremors. ec2 Patient with history of diabetes, ESRD, EMS reports that they had picked him up and noticed his blood sugar to be in the 40s subsequently gave the patient oral glucose. No falls injuries or trauma, no headache. No chest pain or difficulty breathing.. Historical: - Allergies: 04:27 NKA; rg5 - Home Meds: 04:27 acetaminophen-codeine 300-30 mg Oral tab every 6 hours [Active]; amlodipine-benazepril rg5 10-20 mg Oral capsule 1 cap three times a day [Active]; Hydroxyzine Oral [Active]; lisinopril 20 mg Oral tablet 1 tabs daily [Active]; - PMHx: 04:27 CHF; Diabetes - NIDDM; dialysis on M/W/; ESRD; Hypertension; insomnia; rg5 - PSHx: 04:27 bilateral knee repairs; R shoulder; rg5 - Immunization history:: Adult Immunizations up to date. - Infectious Disease History:: Denies. - Social history:: Smoking status: Patient denies any tobacco usage or history of. ROS: 03:48 Constitutional: as per hpi ec2 Exam: 03:48 Constitutional: GEN: NAD Head: atraumatic Eyes: EOMI Ears: External ears are ec2 normal. CV: regular rate LUNGS: no respiratory distress ABD: non-distended SKIN: no evidence of rashes MSK: no evidence of trauma. Neuro: No focal neurologic deficits appreciated. Vital Signs: 03:40 BP 173 / 83; Pulse 65; Resp 17; Pulse Ox 98% on R/A; rg5 03:45 BP 173 / 83; Pulse 66; Resp 18; Temp 98.5(O); Pulse Ox 98% on R/A; Weight 60.33 kg; rg5 Height 5 ft. 7 in. ; Pain 0/10; 04:30 BP 157 / 76; Pulse 67; Resp 17; Pulse Ox 98% ; rg5 05:36 BP 181 / 90; Pulse 67; Resp 17; Pulse Ox 95% on R/A; Pain 0/10; rg5 06:00 BP 178 / 104; Pulse 69; Resp 17; Pulse Ox 95% on R/A; rg5 06:30 BP 177 / 82; Pulse 70; Resp 17; Pulse Ox 96% on R/A; rg5 07:00 BP 198 / 93; Pulse 72; Resp 18; Pulse Ox 95% on R/A; db 03:45 Body Mass Index 20.83 (60.33 kg, 170.18 cm) rg5 03:45 Pain Scale: Adult rg5 05:36 Pain Scale: Adult rg5 [place] Coma Score: 03:40 Eye Response: spontaneous(4). Motor Response: obeys commands(6). Verbal Response: rg5 oriented(5). Total: 15. MDM: 03:45 Patient medically screened. ec2 03:49 Data reviewed: vital signs. ec2 03:51 ED course: Patient arrives today for altered mental status. Examination remarkable for ec2 cooperative individual who is neuro intact. Will obtain lab work, EKG, chest x-ray. Differential clues process such as hypoglycemia, electrolyte disturbances. Will evaluate with CT scan of the head as well to develop intracranial process such as intracranial mass.. 05:54 ED course: EKG independently reviewed and interpreted by me, shows normal sinus rhythm, ec2 rate of 67, no acute ST segment elevations, intervals are nonactionable.. 06:00 ED course: Metabolic profile shows hyponatremia with a sodium of 123, renal dysfunction ec2 as expected with ESRD. Patient with improving blood sugar with a sugar of 109. Dextrose containing fluid has since stopped. Will admit for hyponatremia, hypoglycemia. . 07/15 03:45 Order name: Basic Metabolic Panel; Complete Time: 05:59 ec2 07/15 03:45 Order name: CBC with Diff; Complete Time: 04:34 ec2 07/15 03:58 Order name: Glucose, Ancillary Testing; Complete Time: 04:34 EDMS 07/15 04:00 Order name: Glucose, Ancillary Testing EDMS 07/15 04:23 Order name: Glucose, Ancillary Testing; Complete Time: 04:34 EDMS 07/15 04:45 Order name: Glucose, Ancillary Testing; Complete Time: 05:59 EDMS 07/15 05:52 Order name: Glucose, Ancillary Testing; Complete Time: 05:59 EDMS 07/15 06:25 Order name: Glucose, Ancillary Testing; Complete Time: 07:02 EDMS 07/15 06:57 Order name: Thyroid Stimulating Hormone EDMS 07/15 06:57 Order name: CBC with Automated Diff EDMS 07/15 06:57 Order name: CBC with Automated Diff EDMS 07/15 06:57 Order name: CBC with Automated Diff EDMS 07/15 06:57 Order name: CBC with Automated Diff EDMS 07/15 06:57 Order name: Comprehensive Metabolic Panel EDMS 07/15 06:57 Order name: Comprehensive Metabolic Panel EDMS 07/15 06:57 Order name: Comprehensive Metabolic Panel EDMS 07/15 06:57 Order name: Comprehensive Metabolic Panel EDMS 07/15 06:57 Order name: Lipid Profile EDMS 07/15 06:57 Order name: Lipid Profile EDMS 07/15 06:57 Order name: Magnesium EDMS 07/15 06:57 Order name: Magnesium EDMS 07/15 06:57 Order name: Magnesium EDMS 07/15 06:57 Order name: Magnesium EDMS 07/15 06:57 Order name: Phosphorus EDMS 07/15 06:57 Order name: Phosphorus EDMS 07/15 06:57 Order name: Phosphorus EDMS 07/15 06:57 Order name: Phosphorus EDMS 07/15 06:57 Order name: Troponin High Sensitivity EDMS 07/15 06:57 Order name: Troponin High Sensitivity EDMS 07/15 06:57 Order name: Troponin High Sensitivity EDMS 07/15 07:23 Order name: Glucose, Ancillary Testing EDMS 07/15 03:45 Order name: XRAY Chest (1 view) ec2 07/15 03:49 Order name: CT Head Brain wo Cont ec2 07/15 03:45 Order name: EKG; Complete Time: 03:45 ec2 07/15 03:45 Order name: Cardiac monitoring; Complete Time: 04:03 ec2 07/15 03:45 Order name: EKG - Nurse/Tech; Complete Time: 05:11 ec2 07/15 03:45 Order name: IV Saline Lock; Complete Time: 04:03 ec2 07/15 03:45 Order name: Labs collected and sent; Complete Time: 04:03 ec2 07/15 03:45 Order name: O2 Per Protocol; Complete Time: 04:03 ec2 07/15 03:45 Order name: O2 Sat Monitoring; Complete Time: 04:03 ec2 Administered Medications: 03:53 Drug: GlucaGen IM 1 mg IM once Route: IM; Site: right deltoid; rg5 04:35 Follow up: Response: No adverse reaction rg5 04:36 Drug: Glucose PO Gel 15 grams PO once Route: PO; rg5 05:11 Follow up: Response: No adverse reaction rg5 04:45 Drug: D10 in Water IVP 250 ml IVP once; GIVE 125 ML THEN CHECK GLUCOSE LEVEL Route: ha1 IVP; Site: right antecubital; 06:48 Follow up: Response: No adverse reaction; Blood sugar is elevated rg5 Point of Care Testing: Blood Glucose: 07:10 Blood Glucose: 51 mg/dL; db Ranges: Critical Glucose Levels:Adult <50 mg/dl or >400 mg/dl <40 mg/dl or >180 mg/dl Disposition: 07:02 Critical Care:. ec2 Disposition Summary: 07/15/24 06:01 Hospitalization Ordered Notes: Hospitalization Status: Inpatient Admission ec2 Provider: Tisha Oliveros ec2 Condition: Stable ec2 Problem: new ec2 Symptoms: have improved ec2 Bed/Room Type: Standard ec2 Location: Intensive Care Unit(07/15/24 07:05) bd Room Assignment: 3-(07/15/24 07:05) bd Diagnosis - Hypoglycemia, unspecified ec2 - Hypo-osmolality and hyponatremia ec2 Forms: - Medication Reconciliation Form ec2 - SBAR form ec2 - Leadership Thank You Letter ec2 Critical care time excluding procedures: 07:02 Critical care time: Bedside Care: 30 minutes, Consultation: 5 minutes. Total time: 35 ec2 minutes Signatures: Dispatcher [employer] Isabelle Copeland Heidy, RN RN ha1 Ciaran Mccracken MD MD ec2 Duke Salazar RN RN rg5 Corrections: (The following items were deleted from the chart) 03:49 03:48 Constitutional: GEN: NAD Head: atraumatic Eyes: EOMI Ears: External ears are ec2 normal. CV: regular rate LUNGS: no respiratory distress ABD: non-distended SKIN: no evidence of rashes MSK: no evidence of trauma ec2 07:05 06:01 Telemetry/MedSurg (Inpatient) ec2 bd 07:05 06:01 ec2 bd
--- NOTE | 2024-07-15 06:01 | ER ---
Nurse's Notes [facility] Name: Alex Cagle Age: 63 yrs Sex: Male : 1960 Arrival Date: 07/15/2024 Time: 03:31 Bed 14 Private MD: Diagnosis: Hypoglycemia, unspecified;Hypo-osmolality and hyponatremia Presentation: 07/15 03:45 Chief complaint: EMS states: called ambulance because he started having some rg5 twitches on his arms and usually his blood sugar is low and when we check it it was in 44. 1 tube oral glucose was given and it went up initially to 66. He has hx of HD MWF. 03:45 Coronavirus screen: Client denies travel out of the [place] in the last 14 days. Ebola rg5 Screen: Patient negative for fever greater than or equal to 101.5 degrees Fahrenheit, and additional compatible Ebola Virus Disease symptoms. Initial Sepsis Screen: Does the patient meet any 2 criteria? No. Patient's initial sepsis screen is negative. Initial Sepsis Screen: Does the patient have a suspected source of infection? No. Patient's initial sepsis screen is negative. Risk Assessment: Do you want to hurt yourself or someone else? Patient reports no desire to harm self or others. Onset of symptoms was July 15, 2024 at 03:00. Care prior to arrival: Medication(s) given: oral glucose Glucose check: 44. Activity prior to arrival:. 03:45 Method Of Arrival: EMS: [facility] rg5 03:45 Acuity: DEJAN 3 rg5 Triage Assessment: 03:45 General: Appears in no apparent distress. Behavior is calm, cooperative, appropriate rg5 for age. 03:45 Pain: Denies pain. EENT: No deficits noted. Neuro: Level of Consciousness is awake, rg5 alert, obeys commands, Oriented to person, place. Cardiovascular: Denies chest pain, Patient's skin is warm and dry. Respiratory: Airway is patent Trachea midline Respiratory effort is even, unlabored, Respiratory pattern is regular, symmetrical. GI: Abdomen is round Bowel sounds present X 4 quads. Abd is soft and non tender. : No signs and/or symptoms were reported regarding the genitourinary system. Derm: Skin is fragile, Skin is dry, Skin is normal, Skin temperature is warm. Musculoskeletal: Circulation, motion, and sensation intact. Range of motion: intact in all extremities. Historical: - Allergies: 04:27 NKA; rg5 - Home Meds: 04:27 acetaminophen-codeine 300-30 mg Oral tab every 6 hours [Active]; amlodipine-benazepril rg5 10-20 mg Oral capsule 1 cap three times a day [Active]; Hydroxyzine Oral [Active]; lisinopril 20 mg Oral tablet 1 tabs daily [Active]; - PMHx: 04:27 CHF; Diabetes - NIDDM; dialysis on M/W/F; ESRD; Hypertension; insomnia; rg5 - PSHx: 04:27 bilateral knee repairs; R shoulder; rg5 - Immunization history:: Adult Immunizations up to date. - Infectious Disease History:: Denies. - Social history:: Smoking status: Patient denies any tobacco usage or history of. Screenin:40 [facility] ED Fall Risk Assessment (Adult) History of falling in the last 3 months, rg5 including since admission No falls in past 3 months (0 pts) Confusion or Disorientation No (0 pts) Intoxicated or Sedated No (0 pts) Impaired Gait Yes (1 pt) Mobility Assist Device Used Yes (1 pt) Altered Elimination Yes (1 pt) Score/Fall Risk Level 3 or more points = High Risk Oriented to surroundings, Maintained a safe environment, Hourly rounding (assess needs \T\ fall precautionary measures) done. Abuse screen: Denies threats or abuse. Nutritional screening: No deficits noted. Tuberculosis screening: No symptoms or risk factors identified. Assessment: 03:45 Reassessment: see triage assessment. rg5 04:54 Reassessment: Patient and/or family updated on plan of care and expected duration. Pain rg5 level reassessed. Patient is alert, oriented x 3, equal unlabored respirations, skin warm/dry/pink. 05:11 Reassessment: Patient and/or family updated on plan of care and expected duration. Pain rg5 level reassessed. Patient is alert, oriented x 3, equal unlabored respirations, skin warm/dry/pink. Patient states symptoms have improved. 06:42 Reassessment: Patient and/or family updated on plan of care and expected duration. Pain rg5 level reassessed. Patient is alert, oriented x 3, equal unlabored respirations, skin warm/dry/pink. Patient states feeling better. Patient states symptoms have improved. 07:13 Reassessment: Patient appears in no apparent distress at this time. Patient and/or db family updated on plan of care and expected duration. Pain level reassessed. Patient is alert, oriented x 3, equal unlabored respirations, skin warm/dry/pink. General: Appears in no apparent distress. comfortable, Behavior is calm, cooperative. Neuro: Level of Consciousness is awake, alert, obeys commands. 07:19 Reassessment: CALLED ICU TO GIVE PATIENT REPORT. STATES NURSE WILL CALL BACK. db 07:49 Reassessment: SEE [facility] FOR PATIENT CONTINUED DOCUMENTATION AND CARE. db Vital Signs: 03:40 BP 173 / 83; Pulse 65; Resp 17; Pulse Ox 98% on R/A; rg5 03:45 BP 173 / 83; Pulse 66; Resp 18; Temp 98.5(O); Pulse Ox 98% on R/A; Weight 60.33 kg; rg5 Height 5 ft. 7 in. ; Pain 0/10; 04:30 BP 157 / 76; Pulse 67; Resp 17; Pulse Ox 98% ; rg5 05:36 BP 181 / 90; Pulse 67; Resp 17; Pulse Ox 95% on R/A; Pain 0/10; rg5 06:00 BP 178 / 104; Pulse 69; Resp 17; Pulse Ox 95% on R/A; rg5 06:30 BP 177 / 82; Pulse 70; Resp 17; Pulse Ox 96% on R/A; rg5 07:00 BP 198 / 93; Pulse 72; Resp 18; Pulse Ox 95% on R/A; db 03:45 Body Mass Index 20.83 (60.33 kg, 170.18 cm) rg5 03:45 Pain Scale: Adult rg5 05:36 Pain Scale: Adult rg5 [place] Coma Score: 03:40 Eye Response: spontaneous(4). Motor Response: obeys commands(6). Verbal Response: rg5 oriented(5). Total: 15. ED Course: 03:31 Patient arrived in ED. [id number] 03:32 Ciaran Mcrcacken MD is Attending Physician. ec2 03:40 No provider procedures requiring assistance completed. Inserted saline lock: 22 gauge rg5 in right upper arm, using aseptic technique. Blood collected. Flushed with 10 mL NS. 03:40 Patient has correct armband on for positive identification. Bed in low position. Call rg5 light in reach. Side rails up X2. 03:45 Duke Salazar, KATIANA is Primary Nurse. rg5 03:45 Arm band placed on right wrist. rg5 04:05 XRAY Chest (1 view) In Process Unspecified. EDMS 04:11 Glucose, Ancillary Testing Sent. rg5 04:27 Triage completed. rg5 04:53 Awaiting lab results, Awaiting radiology results. rg5 05:06 CT Head Brain wo Cont In Process Unspecified. EDMS 06:01 Tisha Oliveros MD is Hospitalizing Provider. ec2 06:49 Inserted saline lock: 20 gauge in right antecubital area, using aseptic technique. rg5 Blood collected. Flushed with 10 mL NS. 06:49 Patient admitted, IV remains in place. intact, No redness/swelling at site. Pressure rg5 dressing applied. 06:50 Provided Education on: NEED FOR ADMIT. rg5 07:49 Client placed on continuous cardiac and pulse oximetry monitoring. NIBP monitoring db applied. kitchen mechanic on. Pulse ox on. NIBP on. Administered Medications: 03:53 Drug: GlucaGen IM 1 mg IM once Route: IM; Site: right deltoid; rg5 04:35 Follow up: Response: No adverse reaction rg5 04:36 Drug: Glucose PO Gel 15 grams PO once Route: PO; rg5 05:11 Follow up: Response: No adverse reaction rg5 04:45 Drug: D10 in Water IVP 250 ml IVP once; GIVE 125 ML THEN CHECK GLUCOSE LEVEL Route: ha1 IVP; Site: right antecubital; 06:48 Follow up: Response: No adverse reaction; Blood sugar is elevated rg5 Medication: 03:40 VIS not applicable for this client. rg5 Point of Care Testing: Blood Glucose: 07:10 Blood Glucose: 51 mg/dL; db Ranges: Outcome: 06:01 Decision to Hospitalize by Provider. ec2 07:49 Admitted to ICU accompanied by nurse, via stretcher, on monitor, Report called to ellyn PEREZ RN 07:49 Condition: stable 07:49 Instructed on the need for admit, 07:50 Patient left the ED. db Signatures: Dispatcher [employer] EDMS Elaine Huizar [email or web address] Leandra Fisher RN RN ha1 Saadia Arizmendi RN RN db Ciaran Mccracken MD MD ec2 Duke Salazar RN RN rg5 Corrections: (The following items were deleted from the chart) 06:44 03:40 BP 111 / 72; Pulse 65bpm; Resp 17bpm; Pulse Ox 95% RA; Pain 6/10, Adult; rg5 rg5 06:45 04:48 BP 110 / 76; Pulse 67bpm; Resp 17bpm; Pulse Ox 97% RA; Pain 2/10, Adult; rg5 rg5 06:55 03:45 Chief complaint: EMS states: called ambulance because he started having some rg5 thitches on his arms and usually his blood sugar is low and when we check it it was in 44. 1 tube oral glucose was given and it went up initially to 66. He has hx of HD MWF rg5
--- NOTE | 2024-07-15 07:13 | P.HP ---
Certification for Inpatient Patient admitted to: Inpatient With expected LOS: >2 Midnights Patient will require the following post-hospital care: None Practitioner: I am a practitioner with admitting privileges, knowledge of patient current condition, hospital course, and medical plan of care. Services: Services provided to patient in accordance with Admission requirements found in Title 42 Section 412.3 of the Code of Federal Regulations <Sheryl Song - Last Filed: 07/15/24 17:22> Patient History Date of Service: 07/15/24 Reason for admission: AMS, Hyponatremia, hypoglycemia, ESRD History of Present Illness: Mr. Cagle is a 63-year-old male with a past medical history of hypertension, ESRD on hemodialysis, CHF with preserved ejection fraction, and insulin- dependent diabetes. He is a patient of Dr. Andrew and sees Dr. Ellison for dialysis //. This morning EMS was called by Mr. Cagle's as he was confused and tremorous. In the emergency department, he was found to be hypoglycemic with a blood sugar of 49 g/dL. Laboratory evaluation revealed a sodium of 123, potassium 4.9, chloride 92, bicarb 20, BUN of 74, creatinine of 11.7 with a GFR of 4, and the patient had to be medicated 3 times for hypoglycemia in the emergency department. CBC stable. Mr. Cagle will be admitted to the hospital for management of electrolyte derangements and dialysis. - Past Medical/Surgical History Diabetic: Yes -: End-stage renal disease on hemodialysis -: Hypertension -: Insulin Dependent Type 2 Diabetes -: Chronic IJ blood clot -: CHF -: Peritoneal dialysis port -: shoulder surgery -: left upper arm fistula -: Knee and shoulder surgery Psychosocial/ Personal History: Patient with 5 children. - Family History Father -: Heart disease - Social History Alcohol use: No CD- Drugs: No Caffeine use: No Place of Residence: Home <Juany Songsandhya Shaw - Last Filed: 07/15/24 17:22> Date of Service: 07/15/24 <Tisha Oliveros - Last Filed: 07/16/24 08:24> Allergies No Known Allergies Allergy (Verified 01/01/21 21:09) Home Medications: Amlodipine Besylate/Benazepril [Amlodipine-Benazepril 10-20 mg] 1 cap PO TID 06/01/24 Hydralazine [Apresoline*] 25 mg PO TID 30 Days #90 tab 06/06/24 Sevelamer Carbonate [Renvela*] 3,200 mg PO TIDWM 30 Days #90 tablet 06/06/24 carvediloL [Coreg*] 25 mg PO BID 30 Days #60 tab 06/06/24 Review of Systems 10-point ROS is otherwise unremarkable General: Weakness, Malaise, Other (AMS) Eyes: Unremarkable ENT: Unremarkable Respiratory: Unremarkable Cardiovascular: Unremarkable Gastrointestinal: Unremarkable Genitourinary: Unremarkable Musculoskeletal: Unremarkable Integumentary: Unremarkable Neurological: Confusion, Other (states his called EMS but he can't remember why) Lymphatics: Unremarkable <Sheryl Song - Last Filed: 07/15/24 17:22> Physical Examination - Physical Exam General: Oriented x2, Cooperative, Disheveled, Other (slow to answer) HEENT: Atraumatic, Normocephalic Neck: Supple Respiratory: Normal air movement Cardiovascular: Regular rate/rhythm, Systolic murmur (loud holosystolic) Capillary refill: <2 Seconds Gastrointestinal: Normal bowel sounds Musculoskeletal: No clubbing Integumentary: No rashes Neurological: Normal speech, Other (MAKAH), Abnormal affect Lymphatics: No axilla or inguinal lymphadenopathy External genitalia: Deferred Rectal: Deferred (left av shunt, right arm with 2 bandages, removed. ) - Studies Laboratory Data (last 24 hrs) 07/15/24 07/15/24 04:06 04:06 WBC 5.80 Hgb 11.3 L Hct 34.3 L Plt Count 181 Sodium 123 L Potassium 4.9 BUN 74 H Creatinine 11.70 H Glucose 49 L* <Sheryl Song - Last Filed: 07/15/24 17:22> Assessment and Plan - Plan HFpEF dilutional hyponatremia fluid restrict to 1500ml O2 prn Consult Dr. Ellison, this is pt's normal dialysis day (//) AMS secondary to hypoglycemia in IDDM NPO until alert and oriented Neurochecks q1-2h until A&O and then q4h FSBS q 1h until 2 consecutive readings greater than 100g/dL then q3h until po intake hold insulin for now Decadron 10mg IV x 1 Glucagon 1mg IV x 1 and then Hypoglycemia protocol ESRD with HTN hydralazine 10mg IV q4h until AMS resolved and then can restart po meds, hydralazine 25mg po TID post AMS resolution begin: Amlodipine/benazepril 10/20mg TID, Carvedilol 25mg po BID, renvela 3200mg po TIDWM Consult Dr. Ellison for dialysis VTE prophylaxis Heparin/TEDS Plan to discharge in: Greater than 2 days - Advance Directives Does patient have a Living Will: No Does patient have a Durable POA for Healthcare: No - Code Status/Comfort Care Code Status Assessed: Yes (Full) <Sheryl Song - Last Filed: 07/15/24 17:22> Date of Service: 07/15/24 Patient is having myoclonic jerks; patient acidotic; needing HD Chart <Tisha Oliveros - Last Filed: 07/16/24 08:24>
[2024-07-15] MEDS: D50W 25 GM/50 ML SYRINGE IV ONE (07:24)
[2024-07-15] MEDS: dexAMETHasone 10 MG/ML VIAL IV SCH (08:35)
[2024-07-15 08:48] VITALS: BMI 31.3
[2024-07-15] MEDS: GLUCAGON 1 MG/VIAL IV PRN (08:58)
[2024-07-15] MEDS: HYDROMORPHONE HCL 0.5 MG/0.5 ML INJ IV ONE (10:42)
[2024-07-15] MEDS: DIPHENHYDRAMINE 50 MG/ML VIAL IV ONE (10:43)
[2024-07-15] MEDS: HYDRALAZINE HCL 20 MG/ML VIAL IV PRN (11:21)
--- NOTE | 2024-07-15 11:51 | EKG ---
Test Date: 2024-07-15 Test Time: 05:04:38 Pipe Smoking Machine Offbearer: KYLEE MEASUREMENT RESULTS: Intervals: Rate: 67 OK: 216 QRSD: 104 QT: 430 QTc: 454 Lilly: P: 45 OK: 216 QRS: 87 T: 44 INTERPRETIVE STATEMENTS: Sinus rhythm with 1st degree AV block Otherwise normal ECG Compared to ECG 06/24/2024 13:20:29 First degree AV block now present Atrial premature complex(es) no longer present Fusion complex(es) no longer present Ventricular premature complex(es) no longer present ST (T wave) deviation no longer present Prolonged QT interval no longer present Electronically Signed On 07-15-24 11:50:21 CDT by Jaxon Lawson
[2024-07-15 12:50] LABS: Hepatitis B surface AG Interp. Nonreactive (Nonreactive)
[2024-07-15 12:51] LABS: HBsAG Nonreactive Report Report
[2024-07-15 16:01] LABS: Arterial Blood Carboxyhemoglob 1.3 % (0-1.5); Blood Gas Oxyhemoglobin 94.1 % (94-97); Blood Gas THB 12.1 g/dl (12-18); Blood O2 Saturation 96.3 % (92-98.5)
[2024-07-15 16:13] LABS: Albumin 4.2 g/dL (3.4-5.0); Albumin/Globulin Ratio 1.2 (1.1-1.8); Anion Gap 19.9 mEq/L (5.0-15.0); Bilirubin Total 0.4 mg/dL (0.2-1.0); Globulin 3.4 g/dL (2.3-3.5); Potassium 5.9 mEq/L (3.5-5.1); Protein, Total 7.6 g/dL (6.4-8.2)
[2024-07-15] MEDS: SODIUM BICARB 50 MEQ/50ML VIAL IV ONE (16:27)
[2024-07-15] MEDS: NEPRO SHAKE 237 ML CAN PO SCH (19:43)
--- NOTE | 2024-07-15 22:03 | CON ---
Date of Consultation: 07/15/2024 Chief Complaint: End-stage renal disease, fluid overload, hyponatremia, altered mental status. History Of Present Illness: The patient is a 63-year-old man with past medical history of hypertension; end-stage renal disease, on hemodialysis 3 times per week on Monday, Monday, Monday; congestive heart failure with preserved ejection fracture; insulin-dependent diabetes mellitus; diabetic kidney disease; anemia in CKD. The patient is frequently admitted for fluid overload. He has history of noncompliance with fluid restriction. The patient was brought to the emergency room because of tremors. He became confused. He was found to have hypoglycemia and blood glucose was 49. Lab work revealed sodium of 123, potassium 4.9, chloride 92, bicarbonate 20, BUN 74, creatinine 11.7. The patient was dialyzed on Monday, although over the weekend he became fluid overloaded and he has altered mental status, was found to have hypoglycemia. The patient is admitted to ICU. Hypoglycemia was treated and resolved. The patient has insulin-dependent diabetes mellitus. Home Medications: Amlodipine, benazepril, hydralazine, Renvela, carvedilol. Past Medical History: Diabetes mellitus with nephropathy, retinopathy, neuropathy; hypertension; chronic IJ thrombosis; CHF; peritoneal dialysis; both shoulder surgeries; left upper arm fistula for dialysis access; knee surgery. Family History: Father, heart disease. Social History: Denies alcohol. Denies drugs. Denies caffeine. Review of Systems: Constitutional: Complains of weakness, malaise. Eyes: No vision changes. Ears, Nose, Mouth, and Throat: No oozing. No sore throat. Respiratory: Has shortness of breath, but denies PND and orthopnea. Cardiovascular: Denies chest pain. Denies syncope. GI: Denies nausea, vomiting. : Denies dysuria, hematuria. Musculoskeletal: Generalized weakness. Denies myalgia. Neurological: Confusion. Endocrinology: On arrival to the hospital, the patient was found to have hypoglycemia and was treated for hypoglycemia. Physical Examination: General: The patient is oriented x3, not in acute distress. HEENT: Atraumatic, normocephalic. Neck: Supple. Respiratory: Few rhonchi. Crackles bilaterally at bases. Cardiovascular: S1, S2. 2/6 systolic murmur. GI: Abdomen is soft, benign. No tenderness. No rebound. No guarding. Extremities: Edema present in both legs. Neurologic: Moving extremities. Cranial nerves intact. Laboratory Data: WBC 5.8, hemoglobin 11.3, platelet count 181,000. Sodium 123, potassium 4.9, BUN 74, creatinine 11.7. Glucose 49 on admission. Currently, he does not have hypoglycemia. Impression And Plan: 1. Congestive heart failure with previous ejection fraction. The patient was found to have severe fluid overload and dilutional hyponatremia. The patient became confused, which was due to hypoglycemia. The patient has chronic hyponatremia due to fluid overload and noncompliance with fluid restriction. The patient resumed fluid restriction and plan is to provide dialysis for metabolic clearance and to treat electrolyte abnormalities and fluid overload. Ultrafiltration goal will be adjusted according to blood pressure and clinical volume status. The patient may require daily dialysis to control volemia when hospitalized. 2. Altered mental status secondary to hypoglycemia in the setting of insulin- dependent diabetes mellitus. Recommend to rule out bacteremia and sepsis. The patient remains hemodynamically stable. Blood pressure is elevated, and the patient was treated with IV hydralazine. 3. Hypertension. Continue blood pressure medication. Continue hydralazine and benazepril for congestive heart failure. The patient has congestive heart failure and presented with fluid overload. Continue p.o. fluid restriction, low-sodium diet. 4. Anemia due to chronic kidney disease. Monitor hemoglobin level. Continue HASEEB according to lab results. 5. Renal osteodystrophy. Continue binders. Monitor lab work. NADEEN/BETTINA Voice ID: [id number] Report ID: [id number] MARY
[2024-07-16 05:26] LABS: Absolute Lymphocytes (CBC) 0.2 K/uL (0.7-4.9); Absolute Monocytes 0.2 K/uL (0.1-1.3); Absolute Neutrophil 5.5 K/uL (1.8-8.0); Basophils % 0.1 % (0-1.3); Hematocrit 32.2 % (39.6-49.0); Hemoglobin 10.5 g/dL (13.6-17.9); MCH 28.6 pg (27.0-35.0); MCHC 32.5 g/dL (32.0-36.0); MCV 87.8 fL (80-100); MPV 7.8 fL (7.6-11.3); Monocytes % 3.5 % (3.3-12.3); Neutrophils % 92.4 % (41.7-73.7); Platelets 162 thou/uL (152-406); RBC Red Blood Cell Count 3.66 M/uL (4.33-5.43); Red Cell Distribution Width 15.2 % (12.1-15.2)
[2024-07-16 06:05] LABS: Albumin 3.6 g/dL (3.4-5.0); Albumin/Globulin Ratio 1.2 (1.1-1.8); Anion Gap 14.3 mEq/L (5.0-15.0); Bilirubin Total 0.4 mg/dL (0.2-1.0); Globulin 3.1 g/dL (2.3-3.5); Magnesium 2.3 mg/dL (1.6-2.4); Phosphorus 6.6 mg/dL (2.5-4.9); Potassium 4.3 mEq/L (3.5-5.1); Protein, Total 6.7 g/dL (6.4-8.2)
[2024-07-16 07:11] LABS: Blood Morphology Comment NOT SEEN (NOT SEEN); Differential Total Cells Count 100; Lymphocytes 4 % (15-42); Monocytes 3 % (0-10); Platelet Estimate ADEQ; Segmented Neutrophils 93 % (40-80)
--- NOTE | 2024-07-16 08:27 | P.PN ---
Date of Service: 07/16/24 Subjective Physical Examination - Vitals reviewed - Physical Exam General: Oriented x2, Cooperative, Disheveled, Other (slow to answer) Respiratory: Normal air movement Cardiovascular: Regular rate/rhythm, Systolic murmur (loud holosystolic) Gastrointestinal: Normal bowel sounds Musculoskeletal: No clubbing Integumentary: No rashes; left av shunt, right arm with 2 bandages, removed Neurological: Normal speech, myoclonic jerks Assessment and Plan - Assessment/Plan HFpEF dilutional hyponatremia fluid restrict to 1500ml O2 prn Consult Dr. Ellison, this is pt's normal dialysis day (//) AMS secondary to hypoglycemia in IDDM NPO until alert and oriented Neurochecks q1-2h until A&O and then q4h FSBS q 1h until 2 consecutive readings greater than 100g/dL then q3h until po intake hold insulin for now Decadron 10mg IV x 1 Glucagon 1mg IV x 1 and then Hypoglycemia protocol ESRD with HTN hydralazine 10mg IV q4h until AMS resolved and then can restart po meds, hydralazine 25mg po TID post AMS resolution begin: Amlodipine/benazepril 10/20mg TID, Carvedilol 25mg po BID, renvela 3200mg po TIDWM Consult Dr. Ellison for dialysis VTE prophylaxis Heparin/TEDS Plan to discharge in: Greater than 2 days - Advance Directives Does patient have a Living Will: No Does patient have a Durable POA for Healthcare: No - Code Status/Comfort Care Code Status Assessed: Yes (Full)
[2024-07-16] MEDS: carvediloL 25 MG TAB PO SCH (09:42)
[2024-07-16 10:37] VITALS: O2SAT 93
[2024-07-16] MEDS: DIPHENHYDRAMINE 25 MG TAB/CAP PO ONE (11:04)
[2024-07-16] MEDS: SEVELAMER CARBONATE 800 MG TABLET PO SCH (11:05)
--- NOTE | 2024-07-16 12:09 | PN ---
Date of Progress Note: 07/15/2024 Subjective: The patient was admitted to the hospital with hypoglycemia, altered mental status, and hyponatremia. The patient had dialysis yesterday, tolerated the dialysis. We managed to remove 3 L. The patient more awake today, on room air. Objective: Vital Signs: Blood pressure 150/63, pulse of 82, afebrile. Chest: Faint rales, bilateral base. Heart: S1, S2. Systolic murmur. Abdomen: Soft, nontender. Extremity: No edema. Neurologic: Alert. No focality. No tremor. Oriented x3. Laboratory Data: WBC 6, hemoglobin 10.5. Sodium 128, potassium 4.3, bicarb 25, BUN 55, creatinine 9.1, calcium 8.3, phosphorus 6.6. Current Medications: The patient on, it includes heparin, diphenhydramine, carvedilol 25 daily, Nepro. Assessment And Plan: 1. End-stage renal disease with overvolume, currently close to normal volume. Patient cleared from the Renal standpoint for discharge planning. If patient is going to stay in the hospital, I am going to do extra session of dialysis for better volume control. 2. Hyponatremia, trending up nicely. Will be corrected further with the dialysis. 3. Hyperkalemia, resolved. 4. Congestive heart failure with the exacerbation. We will continue to challenge the patient. 5. Secondary hyperparathyroidism. Resume binder. Time spent examining the patient [id number], reviewing data, lab, and radiology, placing order, discussing the case with the patient, discussing the case with the freight team associate including hospitalist and nursing staff more than 55 minutes. RENAE Voice ID: [id number] Report ID: [id number] MTDSumeet
[2024-07-16 13:43] LABS: Hemoglobin 10.2 g/dL (13.6-17.9)
[2024-07-16 14:01] VITALS: BP 159/74; TEMP 98.7
[2024-07-18 21:59] LABS: C-Peptide 4.84 ng/mL (0.80-3.85); Insulin 9.4 uIU/mL (<=18.4)
== END 2024-07-16 19:31 | disposition home or self-care (01) | DRG 640 ==
LOC: ER 03:31 → 3RD-ICU 06:47 → 2ND 07-16 13:44
PROVIDERS: ADMIT Hospitalist; ATTEND Hospitalist
PROC: 5A1D70Z Performance of Urinary Filtration, Intermittent, Less than 6 Hours Per Day (ICD-10-PCS; principal; 2024-07-16)
DX: E87.1 Hypo-osmolality and hyponatremia (principal); G93.41 Metabolic encephalopathy; I50.33 Acute on chronic diastolic (congestive) heart failure; N18.6 End stage renal disease; I13.2 Hypertensive heart and chronic kidney disease with heart failure and with stage 5 chronic kidney disease, or end stage renal disease; N25.81 Secondary hyperparathyroidism of renal origin; D63.1 Anemia in chronic kidney disease; E11.649 Type 2 diabetes mellitus with hypoglycemia without coma; E11.22 Type 2 diabetes mellitus with diabetic chronic kidney disease; E87.70 Fluid overload, unspecified; E87.5 Hyperkalemia; Z99.2 Dependence on renal dialysis; Z79.4 Long term (current) use of insulin
CPT/HCPCS: 36415; 36600; 70450; 71045; 80048; 80053; 80061; 82805; 82947; 83036; 83525; 83735; 84100; 84443; 84484; 84681; 85014; 85018; 85025; 87340; 90935; 93005; 96372; 99285; J0360; J1100; J1170; J1200; J1610; J1644

== ENCOUNTER 2024-09-01 10:58 | Inpatient (IN) | payer OTHER ==
[2024-09-01 11:32] LABS: Absolute Basophils 0.1 K/uL (0-0.5); Absolute Eosinophils 0.2 K/uL (0-0.5); Absolute Lymphocytes (CBC) 0.8 K/uL (0.7-4.9); Absolute Monocytes 0.7 K/uL (0.1-1.3); Absolute Neutrophil 7.1 K/uL (1.8-8.0); Basophils % 0.9 % (0-1.3); Eosinophils % 2.1 % (0-4.4); Hematocrit 32.7 % (39.6-49.0); Hemoglobin 10.7 g/dL (13.6-17.9); Lymphocytes % 9.1 % (15.3-44.8); MCH 29.2 pg (27.0-35.0); MCHC 32.8 g/dL (32.0-36.0); MCV 88.8 fL (80-100); MPV 7.7 fL (7.6-11.3); Monocytes % 7.7 % (3.3-12.3); Neutrophils % 80.2 % (41.7-73.7); Platelets 212 thou/uL (152-406); RBC Red Blood Cell Count 3.68 M/uL (4.33-5.43); Red Cell Distribution Width 15.9 % (12.1-15.2)
[2024-09-01 11:35] LABS: PT Prothrombin Time 11.2 SECONDS (9.4-12.5); PTT, Activated Partial Thromb 35.3 SECONDS (24.3-36.9)
[2024-09-01 11:54] LABS: Albumin 3.8 g/dL (3.4-5.0); Albumin/Globulin Ratio 1.1 (1.1-1.8); Anion Gap 15.3 mEq/L (5.0-15.0); Bilirubin Total 0.6 mg/dL (0.2-1.0); Globulin 3.5 g/dL (2.3-3.5); Protein, Total 7.3 g/dL (6.4-8.2)
[2024-09-01 11:58] LABS: Potassium 4.3 mEq/L (3.5-5.1)
--- NOTE | 2024-09-01 12:00 | RAD REPORT ---
EXAMINATION: ONE VIEW CHEST XR CLINICAL INDICATION: DYSPNEA TECHNIQUE: Frontal chest projection is submitted. Examination is limited by patient positioning and t echnique. COMPARISON: 07/15/2024 FINDINGS: Moderate bilateral pulmonary opacities likely represent pulmonary edema. The heart is moderately enla rged in size. No displaced fractures identified. IMPRESSION: Moderate CHF versus volume overload pattern. These findings appear mildly worsened since comparison igor johnson.
--- NOTE | 2024-09-01 12:09 | EDPHYS ---
Physician Documentation [facility] Name: Alex Cagle Age: 64 yrs Sex: Male : 1960 Arrival Date: 09/01/2024 Time: 10:58 Bed 4 Private MD: ED Physician Ciaran Mccracken HPI: 09/01 11:35 This 64 yrs old Male presents to ER via EMS with complaints of sob. ec2 11:35 Patient arrives today for worsening shortness of breath. History of dialysis, states he ec2 has been getting progressively more short of breath for the past several days. No history of heart failure that he is aware of. Denies chest pain.. Historical: - Allergies: 11:03 NKA; ph - PMHx: 11:03 CHF; Diabetes - NIDDM; dialysis on M/W/F; ESRD; Hypertension; insomnia; ph - PSHx: 11:03 bilateral knee repairs; R shoulder; ph ROS: 11:35 Constitutional: as per hpi ec2 Exam: 11:35 Constitutional: GEN: NAD Head: atraumatic Eyes: EOMI Ears: External ears are ec2 normal. CV: regular rate LUNGS: no respiratory distress, Rales in the lower lung aguirre ABD: non-distended SKIN: no evidence of rashes MSK: no evidence of trauma Vital Signs: 11:01 BP 203 / 107; Pulse 86; Resp 32; Pulse Ox 88% on R/A; Weight 90.72 kg; Height 5 ft. 8 ph in. ; 11:05 BP 197 / 90; Pulse 74; Resp 19 S; Temp 97.8(TE); Pulse Ox 97% on BiPAP; iw 12:09 BP 215 / 95; Pulse 77; Resp 19; Pulse Ox 96% on BiPAP; iw 12:48 BP 209 / 100; Pulse 80; Resp 21; Pulse Ox 97% on 5 lpm NC; iw 13:25 BP 184 / 116; Pulse 72; Resp 19; Pulse Ox 100% 5 lpm ; iw 13:25 BP 184 / 116; ec2 15:32 BP 186 / 88; Pulse 71; Resp 19 S; Pulse Ox 97% on 3 lpm NC; iw 11:01 Body Mass Index 30.41 (90.72 kg, 172.72 cm) ph MDM: 11:08 Medical Screening Exam initiated ec2 11:36 Data reviewed: vital signs, nurses notes. ED course: Patient arrives today for ec2 progressive shortness of breath. Examination shows lower extremity edema, rales in the lower lung aguirre. Will obtain a septic workup, placed patient on BiPAP given the patient's work of breathing. EKG obtained, independently reviewed and interpreted by me, shows normal sinus rhythm, rate of 80, no acute ST segment elevations, intervalsare nonactionable.. 11:37 ED course: Suspect volume overload.. ec2 12:02 ED course: CBC shows slight anemia. Metabolic profile shows significant renal ec2 dysfunction which is consistent with the patient's CKD, dialysis dependency. Marked BNP elevation at 34,000. Lactate within normal ranges. Chest x-ray shows volume overload. Will admit for dialysis, BiPAP requirement.. 12:12 ED course: Patient with marked improvement in respiratory status, we will trial him off ec2 the BiPAP.. 09/01 11:07 Order name: Blood Culture Adult (2) ec2 09/01 11:07 Order name: CBC with Diff; Complete Time: 12:02 ec2 09/01 11:07 Order name: CMP; Complete Time: 12:02 ec2 09/01 11:07 Order name: Lactate w/ 2H reflex if indic.; Complete Time: 12:02 ec2 09/01 11:07 Order name: Protime (+inr); Complete Time: 12:02 ec2 09/01 11:07 Order name: Ptt, Activated; Complete Time: 12:02 ec2 09/01 11:07 Order name: BNP; Complete Time: 12:02 ec2 09/01 15:59 Order name: Glucose, Ancillary Testing EDMS 09/01 11:07 Order name: Chest Single View XRAY; Complete Time: 12:02 ec2 09/01 11:07 Order name: Accucheck; Complete Time: 12:25 ec2 09/01 11:07 Order name: Cardiac monitoring; Complete Time: 12:25 ec2 09/01 11:07 Order name: EKG - Nurse/Tech; Complete Time: 11:09 ec2 09/01 11:07 Order name: IV Saline Lock - Large Bore; Complete Time: 11:51 ec2 09/01 11:07 Order name: Labs collected and sent; Complete Time: 11:51 ec2 09/01 11:07 Order name: O2 Per Protocol; Complete Time: 11:51 ec2 09/01 11:07 Order name: O2 Sat Monitoring; Complete Time: 11:51 ec2 09/01 11:07 Order name: Vital Signs; Complete Time: 11:51 ec2 Administered Medications: 12:20 Drug: Nitroglycerin Sublingual 0.4 mg Sublingual once; every five minute if needed x3 iw Route: Sublingual; 14:00 Follow up: Response: No adverse reaction; Blood pressure is lowered iw 12:47 Drug: morphine IVP or IV 2 mg IVP once over 4 mins Route: IVP; Infused Over: 4 mins; iw Site: right hand; 13:30 Follow up: Response: No adverse reaction; Pain is unchanged, physician notified iw 12:47 Drug: carvedilol PO 25 mg PO once Route: PO; iw 14:00 Follow up: Response: No adverse reaction; Blood pressure is lowered iw 14:00 Drug: morphine IVP or IV 2 mg IVP once over 4 mins Route: IVP; Infused Over: 4 mins; iw Site: right hand; 14:45 Follow up: Response: No adverse reaction; Pain is decreased iw Point of Care Testing: Blood Glucose: 15:48 Blood Glucose: 100 mg/dL; iw Ranges: Critical Glucose Levels:Adult <50 mg/dl or >400 mg/dl <40 mg/dl or >180 mg/dl Disposition Summary: 09/01/24 12:09 Hospitalization Ordered Notes: Hospitalization Status: Inpatient Admission ec2 Provider: Will Olguin ec2 Condition: Stable ec2 Problem: an acute exacerbation ec2 Symptoms: have improved ec2 Bed/Room Type: Standard ec2 Location: Intensive Care Unit(09/01/24 15:22) eb Room Assignment: 6-(09/01/24 15:22) eb Diagnosis - Heart failure, unspecified ec2 - Volume Overload ec2 - Hypertensive emergency ec2 Forms: - Medication Reconciliation Form ec2 - SBAR form ec2 - Leadership Thank You Letter ec2 Critical care time excluding procedures: 12:02 Critical care time: Bedside Care: 30 minutes. Total time: 30 minutes ec2 Signatures: Dispatcher [employer] Va Mensah RN RN iw Vasile Hopkins, [employer]PER[employer] Daja Anderson RN RN Feli López Edwin, MD MD ec2 Corrections: (The following items were deleted from the chart) 11: 11:07 BLOOD CULTURE*+BA.LAB.BRZ ordered. EDMS EDMS 11: 11:07 CBC+H.LAB.BRZ ordered. EDMS EDMS 11: 11:07 COMPREHENSIVE METABOLIC PANEL+C.LAB.BRZ ordered. EDMS EDMS 11: 11:07 LACTATE+C.LAB.BRZ ordered. EDMS EDMS 11: 11:07 PROTIME (+INR)+COAG.LAB.BRZ ordered. EDMS EDMS 11: 11:07 PTT, ACTIVATED+COAG.LAB.BRZ ordered. EDMS EDMS 11: 11:07 PROBNP+C.LAB.BRZ ordered. EDMS EDMS 11: 11:07 Chest Single View+RAD.RAD.BRZ ordered. EDMS EDMS 11:08 11:08 BiPap ([employer] Only)+RC.RAD.BRZ ordered. EDMS EDMS 15:22 12:09 Telemetry/MedSurg (Inpatient) ec2 eb 15:22 12:09 ec2 eb
--- NOTE | 2024-09-01 12:09 | ER ---
Nurse's Notes [facility] Name: Alex Cagle Age: 64 yrs Sex: Male : 1960 Arrival Date: 09/01/2024 Time: 10:58 Bed 4 Private MD: Diagnosis: Heart failure, unspecified;Volume Overload;Hypertensive emergency Presentation: 09/01 11:01 Chief complaint: EMS states: Breathing difficulty that has been worsening since last ph night, room air Spo2 88%, gave 125 solu-medrol, A\T\A x 1, Spo2 96% on neb tx, hx of dialysis M,W,F, no missed days. Coronavirus screen: Vaccine status: Patient reports receiving the 1st dose of the Covid vaccine. Ebola Screen: No symptoms or risks identified at this time. Initial Sepsis Screen: Does the patient meet any 2 criteria? No. Patient's initial sepsis screen is negative. Does the patient have a suspected source of infection? No. Patient's initial sepsis screen is negative. Risk Assessment: Do you want to hurt yourself or someone else? Patient reports no desire to harm self or others. Onset of symptoms was September 01, 2024. 11:01 Method Of Arrival: EMS: [facility] ph 11:01 Acuity: DEJAN 2 ph Triage Assessment: 11:04 General: Appears in no apparent distress. Behavior is calm, cooperative. Pain: Denies ph pain. Neuro: Level of Consciousness is awake, alert, obeys commands, Oriented to person, place, time, situation. Respiratory: Reports shortness of breath at rest Airway is patent Respiratory effort is labored, Respiratory pattern is tachypnea. Historical: - Allergies: 11:03 NKA; ph - PMHx: 11:03 CHF; Diabetes - NIDDM; dialysis on M/W/F; ESRD; Hypertension; insomnia; ph - PSHx: 11:03 bilateral knee repairs; R shoulder; ph Screenin:08 [facility] ED Fall Risk Assessment (Adult) History of falling in the last 3 months, iw including since admission Yes- single mechanical fall (1 pt) Confusion or Disorientation No (0 pts) Intoxicated or Sedated No (0 pts) Impaired Gait Yes (1 pt) Mobility Assist Device Used Yes (1 pt) Altered Elimination No (0 pt) Score/Fall Risk Level 3 or more points = High Risk Oriented to surroundings, Maintained a safe environment. Abuse screen: Denies threats or abuse. Nutritional screening: No deficits noted. Tuberculosis screening: No symptoms or risk factors identified. Assessment: 11:30 General: Appears in no apparent distress. Behavior is cooperative. Pain: Complains of iw pain in back, right arm, left arm, right leg and left leg. Neuro: Level of Consciousness is awake, obeys commands, Oriented to person, place, time, situation, Moves all extremities. Cardiovascular: Patient's skin is warm and dry. Respiratory: Airway is patent Respiratory effort is even, labored, Respiratory pattern is regular, Patient placed on BiPAP: FiO2%: 60. Derm: Skin is intact. Musculoskeletal: Range of motion: intact in all extremities. 11:55 Reassessment: Patient appears in no apparent distress at this time. pt remains on bipap iw , NAD , call light in reach. 12:09 Reassessment: Patient appears in no apparent distress at this time. Patient and/or iw family updated on plan of care and expected duration. Pain level reassessed. pt requesting to take BiPAP mask off. 12:20 Reassessment: pt removed from bipap, placed on 5 L NC. iw 12:22 Reassessment: pt requesting pain medicine, pain in legs and back and feet. iw 13:30 Reassessment: Patient appears in no apparent distress at this time. Patient and/or iw family updated on plan of care and expected duration. Pain level reassessed. Patient is alert, oriented x 3, equal unlabored respirations, skin warm/dry/pink. pt up to bathroom. Vital Signs: 11:01 BP 203 / 107; Pulse 86; Resp 32; Pulse Ox 88% on R/A; Weight 90.72 kg; Height 5 ft. 8 ph in. ; 11:05 BP 197 / 90; Pulse 74; Resp 19 S; Temp 97.8(TE); Pulse Ox 97% on BiPAP; iw 12:09 BP 215 / 95; Pulse 77; Resp 19; Pulse Ox 96% on BiPAP; iw 12:48 BP 209 / 100; Pulse 80; Resp 21; Pulse Ox 97% on 5 lpm NC; iw 13:25 BP 184 / 116; Pulse 72; Resp 19; Pulse Ox 100% 5 lpm ; iw 13:25 BP 184 / 116; ec2 15:32 BP 186 / 88; Pulse 71; Resp 19 S; Pulse Ox 97% on 3 lpm NC; iw 11:01 Body Mass Index 30.41 (90.72 kg, 172.72 cm) ph ED Course: 11:01 Patient arrived in ED. em1 11:03 Triage completed. ph 11:04 Arm band placed on Patient placed in an exam room, on a stretcher, on oxygen, on ph nuclear monitoring technician, on pulse oximetry. 11:06 Ciaran Mccracken MD is Attending Physician. ec2 11:09 EKG done, by ED staff, reviewed by Ciaran Mccracken MD. em1 11:15 Maintain EMS IV. Dressing intact. Good blood return noted. Site clean \T\ dry. Gauge \T\ iw site: 22 right hand . Flushed with 10 mL NS. 11:47 Chest Single View XRAY In Process Unspecified. EDMS 11:51 Va Rodriguez RN is Primary Nurse. iw 12:08 Will Olguin MD is Hospitalizing Provider. ec2 14:53 Patient has correct armband on for positive identification. Placed in gown. Bed in low iw position. Call light in reach. Side rails up X2. Provided Education on: admission . Client placed on continuous cardiac and pulse oximetry monitoring. NIBP monitoring applied. threat monitoring analyst on. Administered Medications: 12:20 Drug: Nitroglycerin Sublingual 0.4 mg Sublingual once; every five minute if needed x3 iw Route: Sublingual; 14:00 Follow up: Response: No adverse reaction; Blood pressure is lowered iw 12:47 Drug: morphine IVP or IV 2 mg IVP once over 4 mins Route: IVP; Infused Over: 4 mins; iw Site: right hand; 13:30 Follow up: Response: No adverse reaction; Pain is unchanged, physician notified iw 12:47 Drug: carvedilol PO 25 mg PO once Route: PO; iw 14:00 Follow up: Response: No adverse reaction; Blood pressure is lowered iw 14:00 Drug: morphine IVP or IV 2 mg IVP once over 4 mins Route: IVP; Infused Over: 4 mins; iw Site: right hand; 14:45 Follow up: Response: No adverse reaction; Pain is decreased iw Medication: 12:08 VIS not applicable for this client. iw Point of Care Testing: Blood Glucose: 15:48 Blood Glucose: 100 mg/dL; iw Ranges: Outcome: 12:09 Decision to Hospitalize by Provider. ec2 16:11 Patient left the ED. eb Signatures: Dispatcher [employer] Va Mensah, Armond Garcia RN Daja Thomas RN RN Feli Rogers Edwin, MD MD ec2 Corrections: (The following items were deleted from the chart) 15:32 15:32 Pulse 71bpm; Resp 19bpm; Spontaneous; Pulse Ox 97% 3 lpm Nasal Cannula; iw iw 15:45 11:05 BP 197 / 90; Pulse 74bpm; Resp 19bpm; Spontaneous; Pulse Ox 97% BiPAP; iw iw
[2024-09-01] MEDS ORDERED: NITROGLYCERIN 0.4 MG/TAB SL ONE (12:14)
[2024-09-01] MEDS ORDERED: carvediloL 6.25 MG TAB ONE (12:41)
[2024-09-01] MEDS ORDERED: MORPHINE 2 MG/ML SYR ONE ×2 (12:41→13:48)
--- NOTE | 2024-09-01 16:09 | P.HP ---
Certification for Inpatient Patient admitted to: Inpatient With expected LOS: >2 Midnights Patient will require the following post-hospital care: None Practitioner: I am a practitioner with admitting privileges, knowledge of patient current condition, hospital course, and medical plan of care. Services: Services provided to patient in accordance with Admission requirements found in Title 42 Section 412.3 of the Code of Federal Regulations Patient History Date of Service: 09/01/24 Reason for admission: Volume overload/ESRD History of Present Illness: 64-year-old male with history of hypertension, ESRD on HD, chronic diastolic congestive heart failure, insulin-dependent diabetes presents the emergency department chief complaint of shortness of breath. He reports he went to dialysis on Monday as typical, completed dialysis and has been feeling progressively short of breath since then, much worse this morning. Upon arrival to the emergency department patient was dyspneic, tachypneic with elevated blood pressure in the 200s systolic. His labs are significant for hemoglobin 10.7 creatinine of 10 potassium 4.3 glucose 100 BNP 34,000 chest x- ray showed moderate CHF versus volume overload pattern. He initially required BiPAP but after being given nitro, morphine, carvedilol was able to be weaned down to nasal cannula. Case was discussed with nephrology while patient was in the ED for urgent dialysis. Allergies No Known Allergies Allergy (Verified 01/01/21 21:09) Home Medications: Amlodipine Besylate/Benazepril [Amlodipine-Benazepril 10-20 mg] 1 cap PO TID 06/01/24 Hydralazine [Apresoline*] 25 mg PO TID 30 Days #90 tab 06/06/24 Sevelamer Carbonate [Renvela*] 3,200 mg PO TIDWM 30 Days #90 tablet 06/06/24 carvediloL [Coreg*] 25 mg PO BID 30 Days #60 tab 06/06/24 Nepro Shake [Nepro*] 237 ml PO BID #60 can 07/16/24 Sevelamer Carbonate [Renvela*] 1,600 mg PO TIDWM #120 07/16/24 - Past Medical/Surgical History Diabetic: Yes -: End-stage renal disease on hemodialysis -: Hypertension -: Insulin Dependent Type 2 Diabetes -: Chronic IJ blood clot -: CHF -: Peritoneal dialysis port -: shoulder surgery -: left upper arm fistula -: Knee and shoulder surgery Psychosocial/ Personal History: Patient with 5 children. - Family History Father -: Heart disease - Social History Alcohol use: No CD- Drugs: No Caffeine use: No Place of Residence: Home Review of Systems 10-point ROS is otherwise unremarkable Respiratory: Shortness of Breath Physical Examination - Vital Signs Pulse: 77 Pulse Ox (%): 95 - Physical Exam General: Alert, In no apparent distress, Oriented x3 HEENT: Atraumatic, PERRLA, EOMI Neck: Supple, 2+ carotid pulse no bruit, No LAD Respiratory: Clear to auscultation bilaterally, Normal air movement Cardiovascular: Regular rate/rhythm, Normal S1 S2 Gastrointestinal: Normal bowel sounds, No tenderness Musculoskeletal: No tenderness Integumentary: No rashes Neurological: Normal gait, Normal speech, Normal strength at 5/5 x4 extr - Studies Laboratory Data (last 24 hrs) 09/01/24 09/01/24 09/01/24 11:20 11:20 11:20 WBC 8.80 Hgb 10.7 L Hct 32.7 L Plt Count 212 PT 11.2 INR 1.00 APTT 35.3 Sodium 133 L Potassium 4.3 BUN 45 H Creatinine 10.00 H Glucose 87 Total Bilirubin 0.6 AST 21 ALT 19 Alkaline Phosphatase 71 Assessment and Plan - Plan Assessment: Acute hypoxic respiratory failure secondary to volume overload Acute on chronic diastolic CHF ESRD on HD with hypervolemia Diabetes mellitus type 2insulin-dependent Hypertension Hyperlipidemia Plan: Acute hypoxic respiratory failure secondary to volume overload Acute on chronic diastolic CHF ESRD on HD with hypervolemia Nephrology consulted for urgent dialysis Patient will be dialyzed today Nephrology to follow patient does not make urine Continue home indications Diabetes mellitus type 2insulin-dependent ACHS Accu-Chek, sliding scale insulin Hypertension Hyperlipidemia Continue home medications DVT PPX: Heparin subcu Code status: Full Discharge Plan: Home Plan to discharge in: 48 Hours - Advance Directives Does patient have a Living Will: No Does patient have a Durable POA for Healthcare: No - Code Status/Comfort Care Code Status Assessed: Yes (Full code) Critical Care: No Time Spent Managing Pts Care (In Minutes): 62
[2024-09-01] MEDS: HYDROCODONE/APAP 5/325 MG TAB PO PRN (17:48)
[2024-09-01] MEDS: HYDRALAZINE HCL 20 MG/ML VIAL IV PRN (17:49)
[2024-09-01] MEDS: HEPARIN 5000 UNIT/ML 1 ML VIAL SQ SCH (21:21)
[2024-09-01] MEDS: HYDRALAZINE HCL 20 MG/ML VIAL IV ONE (21:22)
[2024-09-01 21:40] VITALS: BMI 30.4
[2024-09-01] MEDS: ZOLPIDEM TARTRATE 10 MG TABLET PO PRN (23:35)
--- NOTE | 2024-09-02 00:38 | CON ---
Date of Consultation: 09/01/2024 Chief Complaint: End-stage renal disease, volume overload, pulmonary edema, respiratory failure, con gestive heart failure exacerbation. History Of Present Illness: The patient is a 64-year-old male with history of hypertension, end-stag e renal disease, on hemodialysis, chronic diastolic congestive heart failure, insulin-dependent diabe ashok mellitus. He presented to emergency room with complaints of shortness of breath. He reported th at he went to dialysis on Monday, completed dialysis and was feeling progressively weak and had progr essively worse shortness of breath. He came to emergency room and was found to have hypoxemia and hy pertensive emergency. Blood pressure systolic was up to 200 and potassium level was 4.3, creatinine 10, hemoglobin 10.7, BNP 34,000. Chest x-ray showed moderately severe congestive heart failure with overload volume pattern. The patient was initiated on BiPAP and stop hemodialysis was ordered for me tabolic clearance and ultrafiltration to control congestive heart failure and treat fluid overload. The patient was medicated with morphine, nitroglycerin, carvedilol, and was weaned off to nasal cannu la. Primarily, he had a BiPAP for severe hypoxemic respiratory failure. Review of Systems: Constitutional: The patient complains of generalized weakness. Eyes: Denies vision changes. Ears, Nose, Mouth, and Throat: Denies sore throat or earache. Respiratory: Denies hemoptysis. Has severe shortness of breath. Denies wheezing. GI: Denies nausea, vomiting. : Denies dysuria, hematuria. All other systems reviewed and all are negative. Past Medical History: Hypertension, insulin-dependent diabetes mellitus type 2, chronic IJ blood milana t, chronic thrombosis of IJ, congestive heart failure, peritoneal dialysis port, shoulder surgery, le ft upper arm fistula, knee and shoulder surgery. Psychological History: The patient is and he has 5 children. Family History: Father, heart disease. Social History: Denies tobacco, alcohol. Denies drugs. Physical Examination: General: The patient is alert, oriented x3. Eyes: Anicteric sclerae. EOMI. Ears, Nose, Mouth and Throat: Oral mucosa moist. No pallor. Neck: Supple. No bruits. Lungs: Crackles bilaterally. No wheezing. No rhonchi. Heart: S1, S2. No pericardial friction rub. Abdomen: Soft, benign, nontender. No rebound. No guarding. Extremities: Edema present. Neurological: Moving extremities. Cranial nerves intact. Laboratory Data: Hemoglobin 10.7, WBC 8.8, platelet count 212,000. PT 11.2, INR 1.00, PTT 35.3. So dium 133, potassium 4.3, BUN 45, creatinine 10, glucose 87, total bilirubin 0.6, AST 21, ALT 19, AP 7 1. Impression: Acute hypoxemic respiratory failure secondary to volume overload, congestive heart failu re, acute on chronic diastolic dysfunction, end-stage renal disease with hypervolemia, hyponatremia d ue to dilutional effect of fluid overload, hypertension, hyperlipidemia, diabetes mellitus type 2 wit h renal manifestation, anemia, chronic kidney disease, renal osteodystrophy. Plan: The patient had severe acute hypoxemic respiratory failure secondary to volume overload, acute on chronic diastolic congestive heart failure. He remains dialysis dependent and he will stop dialy sis for metabolic clearance and for ultrafiltration to obtain negative fluid balance and to treat con gestive heart failure. Monitor blood pressure closely during dialysis. The patient has hypertensive emergency, received IV hydralazine. Continue angiotensin receptor anil. Continue hydralazine. The patient was also medicated with carvedilol. Continue carvedilol. Anemia, CKD, renal osteodystro phy; monitor phosphorus level. Continue binders. Anemia, CKD, continue HASEEB. Renal osteodystrophy, continue renal diet and continue binders. Diabetes mellitus. Continue i nsulin. EB/MODL Voice ID: [id number] Report ID: [id number]
[2024-09-02] MEDS ORDERED: ZOLPIDEM TARTRATE 10 MG TABLET PO PRN (01:14)
[2024-09-02] MEDS: HYDRALAZINE HCL 25 MG TABLET PO SCH (01:25)
[2024-09-02] MEDS: carvediloL 25 MG TAB PO SCH (01:25)
[2024-09-02 04:46] LABS: Absolute Lymphocytes (CBC) 0.4 K/uL (0.7-4.9); Absolute Monocytes 0.4 K/uL (0.1-1.3); Absolute Neutrophil 5.9 K/uL (1.8-8.0); Basophils % 0.3 % (0-1.3); Hematocrit 30.3 % (39.6-49.0); Hemoglobin 9.8 g/dL (13.6-17.9); Lymphocytes % 5.3 % (15.3-44.8); MCH 28.3 pg (27.0-35.0); MCHC 32.4 g/dL (32.0-36.0); MCV 87.4 fL (80-100); MPV 7.8 fL (7.6-11.3); Monocytes % 6.5 % (3.3-12.3); Neutrophils % 87.9 % (41.7-73.7); Platelets 204 thou/uL (152-406); RBC Red Blood Cell Count 3.47 M/uL (4.33-5.43)
[2024-09-02 05:25] LABS: Anion Gap 12.3 mEq/L (5.0-15.0); Magnesium 2.3 mg/dL (1.6-2.4); Phosphorus 5.3 mg/dL (2.5-4.9); Potassium 4.3 mEq/L (3.5-5.1)
[2024-09-02] MEDS: HYDRALAZINE HCL 20 MG/ML VIAL IV PRN (05:32)
[2024-09-02 08:20] LABS: Blood Morphology Comment NOT SEEN (NOT SEEN); Differential Total Cells Count 100; Lymphocytes 3 % (15-42); Monocytes 6 % (0-10); Platelet Estimate ADEQ; Segmented Neutrophils 91 % (40-80)
[2024-09-02] MEDS: SEVELAMER CARBONATE 800 MG TABLET PO SCH (08:27)
[2024-09-02] MEDS: AMLODIPINE 10 MG TAB PO SCH (08:27)
[2024-09-02] MEDS: BENAZEPRIL 20 MG TAB PO SCH (08:27)
[2024-09-02] MEDS: LOSARTAN POTASSIUM 50 MG TABLET PO SCH (08:27)
[2024-09-02] MEDS: NEPRO SHAKE 237 ML CAN PO SCH (08:28)
--- NOTE | 2024-09-02 09:33 | P.PN ---
Date of Service: 09/02/24 Subjective: Doing much better this morning Off 02 ambulatory stable for downgrade from ICU ROS: 10 point ROS as noted above, otherwise negative Physical exam GEN: Alert, oriented, NAD HEENT: Normal conjunctiva, sclera anicteric CV: Regular rate and rhythm, no edema Pulm: Nonlabored respirations on room air ABD: Soft, nontender, nondistended MSK: No joint tenderness Integumentary: No rashes Neuro: Normal speech, normal affect Vitals reviewed Assessment: Acute hypoxic respiratory failure secondary to volume overload Acute on chronic diastolic CHF ESRD on HD with hypervolemia Diabetes mellitus type 2insulin-dependent Hypertension Hyperlipidemia Plan: Acute hypoxic respiratory failure secondary to volume overload Acute on chronic diastolic CHF ESRD on HD with hypervolemia Had HD 09/01 Much improved today Downgrade to floor Await neprhology recs Diabetes mellitus type 2insulin-dependent ACHS Accu-Chek, sliding scale insulin Hypertension Hyperlipidemia Continue home medications DVT PPX: Heparin subcu Code status: Full Discharge Plan: Home Plan to discharge in: 24 Hours Time Spent Managing Pts Care (In Minutes): 35
[2024-09-02] MEDS: CODEINE 30MG/APAP 300MG TAB PO PRN (13:25)
[2024-09-02] MEDS: AMLODIPINE 10 MG TAB ONE (16:14)
[2024-09-02] MEDS: BENAZEPRIL 20 MG TAB ONE (16:15)
[2024-09-02] MEDS: hydrOXYzine HCL 25 MG TAB PO ONE (21:48)
--- NOTE | 2024-09-03 01:58 | PN ---
Date of Progress Note: 09/02/2024 Chief Complaint: End-stage renal disease, fluid overload, congestive heart failure exacerbation, pul monary edema, hypoxemic respiratory failure. Subjective: The patient received a stat hemodialysis yesterday for volume control. The patient deve loped hypoxemic respiratory failure. Chest x-ray showed pulmonary edema. BNP was 34,000. Chest x-r ay showed [id number] congestive heart failure with overload volume pattern. The patient was primarily initiated on BiPAP and subsequently on nasal cannula. He tolerated dialysis with ultrafilt ration. Review of Systems: Denies chest pain, palpitation. Denies nausea, vomiting. Physical Examination: Lungs: Diminished breath sounds at bases. Heart: S1, S2. Abdomen: Soft. Extremities: Slight edema. Impression And Plan: 1.End-stage renal disease, fluid overload, congestive heart failure exacerbation in setting of fluid overload. Continue dialysis with daily treatment and ultrafiltration to control volemia and treat c ongestive heart failure exacerbation. 2.Hypertension. Monitor blood pressure. Adjust blood pressure medication. 3.Diabetes mellitus with renal manifestation. Continue insulin. 4.Anemia and chronic kidney disease. Monitor hemoglobin and hematocrit. EB/MODL Voice ID: [id number] Report ID: [id number]
[2024-09-03 04:58] LABS: Absolute Eosinophils 0.1 K/uL (0-0.5); Absolute Lymphocytes (CBC) 0.7 K/uL (0.7-4.9); Absolute Monocytes 0.7 K/uL (0.1-1.3); Absolute Neutrophil 6.1 K/uL (1.8-8.0); Basophils % 0.4 % (0-1.3); Eosinophils % 1.4 % (0-4.4); Hematocrit 31.2 % (39.6-49.0); Hemoglobin 10.1 g/dL (13.6-17.9); Lymphocytes % 9.8 % (15.3-44.8); MCH 28.6 pg (27.0-35.0); MCHC 32.4 g/dL (32.0-36.0); MCV 88.2 fL (80-100); MPV 7.6 fL (7.6-11.3); Monocytes % 8.8 % (3.3-12.3); Neutrophils % 79.6 % (41.7-73.7); Platelets 202 thou/uL (152-406); RBC Red Blood Cell Count 3.54 M/uL (4.33-5.43); Red Cell Distribution Width 15.9 % (12.1-15.2)
[2024-09-03 05:13] LABS: Anion Gap 13.1 mEq/L (5.0-15.0); Magnesium 2.4 mg/dL (1.6-2.4); Phosphorus 4.8 mg/dL (2.5-4.9); Potassium 4.1 mEq/L (3.5-5.1)
[2024-09-03] MEDS: GUAIFENESIN 600 MG SA TAB PO PRN (08:56)
--- NOTE | 2024-09-03 09:08 | P.PN ---
Date of Service: 09/03/24 Subjective: no acute events overnight Off 02 ambulatory C/O congestion this AM ROS: 10 point ROS as noted above, otherwise negative Physical exam GEN: Alert, oriented, NAD HEENT: Normal conjunctiva, sclera anicteric CV: Regular rate and rhythm, no edema Pulm: Nonlabored respirations on room air ABD: Soft, nontender, nondistended MSK: No joint tenderness Integumentary: No rashes Neuro: Normal speech, normal affect Vitals reviewed Assessment: Acute hypoxic respiratory failure secondary to volume overload Acute on chronic diastolic CHF ESRD on HD with hypervolemia Diabetes mellitus type 2insulin-dependent Hypertension Hyperlipidemia Plan: Acute hypoxic respiratory failure secondary to volume overload Acute on chronic diastolic CHF ESRD on HD with hypervolemia Improving Nephrology following Daily HD so far Await neprhology recs Improving Diabetes mellitus type 2insulin-dependent ACHS Accu-Chek, sliding scale insulin Hypertension Hyperlipidemia Continue home medications DVT PPX: Heparin subcu Code status: Full Discharge Plan: Home Plan to discharge in: 24 Hours Time Spent Managing Pts Care (In Minutes): 35
--- NOTE | 2024-09-03 09:40 | RAD REPORT ---
EXAMINATION: ONE VIEW CHEST XR CLINICAL INDICATION: dyspnea TECHNIQUE: Frontal chest projection is submitted. Examination is limited by patient positioning and t echnique. COMPARISON: 09/01/2024 FINDINGS: Bilateral pulmonary opacities are noted, slightly improved since the prior study. The heart is modera tely enlarged in size. No displaced fractures identified. IMPRESSION: Mild improvement in lung aeration noted since the comparison study.
--- NOTE | 2024-09-03 14:31 | PN ---
Date of Progress Note: 09/03/2024 Subjective: This patient was admitted to the hospital with over-volume. The patient has been dialyz ed daily. The patient complaining from body ache. Physical Examination: Vital Signs: Blood pressure 165/81, pulse of 66. Chest: Crackles bilateral base. Heart: S1, S2, systolic murmur. Abdomen: Soft, nontender. Extremities: Trace edema. Neurologic: Alert, no focality. Lab: WBC 7.6, hemoglobin 10.1. Sodium 131, potassium 4.1, bicarb 26, BUN 38, creatinine 6.7. Calci um 9.4, phosphorus 4.8. Current Medications: The patient on include benazepril, carvedilol 25 b.i.d., hydralazine, losartan, Nepro, Renvela. Assessment And Plan: 1.End-stage renal disease with over-volume. I am going to continue the patient on daily dialysis. We will do sequential today. 2.Hyponatremia secondary to dilutional, will be corrected with dialysis. 3.Hypertension, controlled, optimal. We will continue to utilize blood pressure for more ultrafiltr ation. 4.Fatigue. I am going to go ahead and get TSH and vitamin D level to evaluate if there is any other reason for his fatigue and we will follow up. 5.Deconditioning, continue PT, OT. 6.Congestive heart failure with exacerbation, we will optimize fluid status. RENAE Voice ID: [id number] Report ID: [id number]
[2024-09-04 05:08] LABS: Absolute Eosinophils 0.2 K/uL (0-0.5); Absolute Lymphocytes (CBC) 0.8 K/uL (0.7-4.9); Absolute Monocytes 0.7 K/uL (0.1-1.3); Absolute Neutrophil 4.6 K/uL (1.8-8.0); Basophils % 0.6 % (0-1.3); Eosinophils % 2.5 % (0-4.4); Hemoglobin 10.6 g/dL (13.6-17.9); Lymphocytes % 12.4 % (15.3-44.8); MCH 28.9 pg (27.0-35.0); MCV 87.6 fL (80-100); MPV 7.2 fL (7.6-11.3); Monocytes % 10.9 % (3.3-12.3); Neutrophils % 73.6 % (41.7-73.7); Nucleated Red Blood Cells % 0.1 % (0-0); Platelets 216 thou/uL (152-406); RBC Red Blood Cell Count 3.66 M/uL (4.33-5.43); Red Cell Distribution Width 15.9 % (12.1-15.2)
[2024-09-04 05:41] LABS: Anion Gap 12.8 mEq/L (5.0-15.0); Magnesium 2.6 mg/dL (1.6-2.4); Phosphorus 7.1 mg/dL (2.5-4.9); Potassium 4.8 mEq/L (3.5-5.1); Thyroid Stimulating Hormone 0.94 uIU/mL (0.358-3.740)
[2024-09-04 08:54] VITALS: O2SAT 96
[2024-09-04 09:49] VITALS: TEMP 97.6
--- NOTE | 2024-09-04 11:42 | EKG ---
Test Date: 2024-09-01 Test Time: 11:: Sheet Pile Driver Operator: ADELA MEASUREMENT RESULTS: Intervals: Rate: 80 MT: 182 QRSD: 100 QT: 398 QTc: 459 [place]: P: 42 MT: 182 QRS: 90 T: 36 INTERPRETIVE STATEMENTS: Normal sinus rhythm Rightward axis Borderline ECG Compared to ECG 07/15/2024 05:04:38 Right-axis deviation now present First degree AV block no longer present Electronically Signed On 09-04-24 11:35:23 GLASS CYLINDER FLANGER by Jaxon Lawson
--- NOTE | 2024-09-04 13:26 | P.DS ---
Admission Date: 09/01/24 Discharge Date: 09/04/24 Disposition: ROUTINE DISCHARGE Discharge Condition: GOOD Reason for Admission: Volume overload/ESRD Brief History of Present Illness: 64-year-old male with history of hypertension, ESRD on HD, chronic diastolic congestive heart failure, insulin-dependent diabetes presents the emergency department chief complaint of shortness of breath. He reports he went to dialysis on Monday as typical, completed dialysis and has been feeling progressively short of breath since then, much worse this morning. Upon arrival to the emergency department patient was dyspneic, tachypneic with elevated blood pressure in the 200s systolic. His labs are significant for hemoglobin 10.7 creatinine of 10 potassium 4.3 glucose 100 BNP 34,000 chest x- ray showed moderate CHF versus volume overload pattern. He initially required BiPAP but after being given nitro, morphine, carvedilol was able to be weaned down to nasal cannula. Case was discussed with nephrology while patient was in the ED for urgent dialysis. Hospital Course: Assessment: Acute hypoxic respiratory failure secondary to volume overload Acute on chronic diastolic CHF ESRD on HD with hypervolemia Diabetes mellitus type 2insulin-dependent Hypertension Hyperlipidemia Patient was admitted to the hospital for hypoxic respiratory failure, volume overload with ESRD, CHF. He was dialyzed 3 days consecutively and has significantly improved. He is stable for discharge and outpatient follow- up/continue scheduled dialysis outpatient. Medications as previously prescribed Follow-up with your primary care doctor and nephrology 1 week Vital Signs/Physical Exam: Temp Pulse Resp BP Pulse Ox 97.6 F 57 16 143/77 H 99 09/04/24 08:00 09/04/24 08:28 09/04/24 08:00 09/04/24 08:29 09/04/24 08:00 General: Alert, In no apparent distress, Oriented x3 HEENT: Atraumatic, PERRLA Neck: Supple, JVD not distended Respiratory: Clear to auscultation bilaterally, Normal air movement Cardiovascular: Regular rate/rhythm, Normal S1 S2 Gastrointestinal: Normal bowel sounds, No tenderness Musculoskeletal: No tenderness Integumentary: No rashes Neurological: Normal speech, Normal tone, Normal affect Laboratory Data at Discharge: WBC 6.30 thou/uL (4.3-10.9) 09/04/24 04:31 Hgb 10.6 g/dL (13.6-17.9) L 09/04/24 04:31 Hct 32.0 % (39.6-49.0) L 09/04/24 04:31 Plt Count 216 thou/uL (152-406) 09/04/24 04:31 PT 11.2 SECONDS (9.4-12.5) 09/01/24 11:20 INR 1.00 09/01/24 11:20 APTT 35.3 SECONDS (24.3-36.9) 09/01/24 11:20 Sodium 129 mEq/L (136-145) L 09/04/24 04:31 Potassium 4.8 mEq/L (3.5-5.1) D 09/04/24 04:31 BUN 50 mg/dL (7-18) H 09/04/24 04:31 Creatinine 8.92 mg/dL (0.70-1.30) H 09/04/24 04:31 Glucose 107 mg/dL (74-106) H 09/04/24 04:31 Phosphorus 7.1 mg/dL (2.5-4.9) H 09/04/24 04:31 Magnesium 2.6 mg/dL (1.6-2.4) H 09/04/24 04:31 Total Bilirubin 0.6 mg/dL (0.2-1.0) 09/01/24 11:20 AST 21 U/L (15-37) 09/01/24 11:20 ALT 19 U/L (16-61) 09/01/24 11:20 Alkaline Phosphatase 71 U/L (45-117) 09/01/24 11:20 Home Medications: Amlodipine Besylate/Benazepril [Amlodipine-Benazepril 10-20 mg] 1 cap PO TID 06/01/24 Hydralazine [Apresoline*] 25 mg PO TID 30 Days #90 tab 06/06/24 Sevelamer Carbonate [Renvela*] 3,200 mg PO TIDWM 30 Days #90 tablet 06/06/24 carvediloL [Coreg*] 25 mg PO BID 30 Days #60 tab 06/06/24 Nepro Shake [Nepro*] 237 ml PO BID #60 can 07/16/24 Zolpidem Tartrate [Ambien] 10 mg PO BEDTIME PRN PRN 09/01/24 Physician Discharge Instructions: Patient was admitted to the hospital for hypoxic respiratory failure, volume overload with ESRD, CHF. He was dialyzed 4 days consecutively and has significantly improved. He is stable for discharge and outpatient follow- up/continue scheduled dialysis outpatient. Medications as previously prescribed Follow-up with your primary care doctor and nephrology 1 week Diet: Renal Activity: Ad adina Followup: Constantin Ellison MD [ACTIVE - CAN ADMIT] - 2-3 Days Toya Andrew DO, DO [Primary Care Provider] - 1 Week Time spent managing pt's care (in minutes): 34
--- NOTE | 2024-09-04 13:29 | PN ---
Date of Progress Note: 09/04/2024 Subjective: The patient was admitted with end-stage renal disease, over-volume. The patient being d ialyzed daily. Yesterday we dialyzed, we took off 2.5 L. The patient lying flat. On room air. Physical Examination: Vital Signs: Blood pressure 147/77, pulse of 57. Chest: Clear to auscultation. Heart: S1, S2, regular. Abdomen: Soft, nontender. Extremities: No edema. Neurologic: Alert, no focality. Lab: Hemoglobin 10.6. Sodium 129, potassium 4.8, bicarb 27, BUN 50, creatinine 8.9. Calcium 9.7, p hosphorus 7.1, magnesium 2.6. Current Medications: The patient on include: 1.Heparin. 2.Carvedilol 25 b.i.d. 3.Benazepril 20 t.i.d. 4.Hydralazine 25 t.i.d. 5.Losartan 100. 6.Renvela. Assessment And Plan: 1.End-stage renal disease. We will continue the patient on dialysis, Monday, Monday, Monday. Th e patient has been dialyzed on a daily basis. Today his day of dialysis we will dialyze him. Then t he patient okay from the renal standpoint for discharge planning. 2.Hypertension, controlled, optimal. I am going to discontinue benazepril to avoid double blocking. Continue losartan. 3.Anemia of chronic kidney disease. Continue HASEEB. 4.Hyponatremia, will be corrected with dialysis. 5.Generalized body ache. Vitamin D still pending. TSH within normal limit. Mostly pain seeker. We will continue symptomatic treatment. Will follow up with primary. EDGARDO/BETTINA Voice ID: [id number] Report ID: [id number]
[2024-09-04 14:46] VITALS: BP 157/82
[2024-09-08 04:38] LABS: 1,25 Dihydroxy Vitamin D3 9 pg/mL; Vitamin D 1,25-Dihydroxy Total 9 pg/mL (18-72); Vitamin D,1,25-OH2, D2 <8 pg/mL
== END 2024-09-04 15:00 | disposition home or self-care (01) | DRG 291 ==
LOC: ER 10:58 → ERHOLD 12:32 → 3RD-ICU 15:32 → 2ND 09-02 18:17
PROVIDERS: ADMIT Hospitalist; ATTEND Internal Medicine
PROC: 5A09357 Assistance with Respiratory Ventilation, Less than 24 Consecutive Hours, Continuous Positive Airway Pressure (ICD-10-PCS; principal; 2024-09-01)
PROC: 5A1D70Z Performance of Urinary Filtration, Intermittent, Less than 6 Hours Per Day (ICD-10-PCS; 2024-09-01)
DX: I13.2 Hypertensive heart and chronic kidney disease with heart failure and with stage 5 chronic kidney disease, or end stage renal disease (principal); I50.33 Acute on chronic diastolic (congestive) heart failure; N18.6 End stage renal disease; J96.01 Acute respiratory failure with hypoxia; I16.1 Hypertensive emergency; E87.1 Hypo-osmolality and hyponatremia; E11.22 Type 2 diabetes mellitus with diabetic chronic kidney disease; D63.1 Anemia in chronic kidney disease; N25.0 Renal osteodystrophy; E78.5 Hyperlipidemia, unspecified; Z99.2 Dependence on renal dialysis; Z79.4 Long term (current) use of insulin; Z79.02 Long term (current) use of antithrombotics/antiplatelets; Z79.899 Other long term (current) drug therapy
CPT/HCPCS: 36415; 71045; 80048; 80053; 82652; 82947; 83605; 83735; 83880; 84100; 84443; 85025; 85610; 85730; 87040; 90935; 93005; 94660; 94760; 96374; 99285; J0360; J1644; J2270

== ENCOUNTER 2024-09-11 20:54 | Emergency (ER) | payer OTHER ==
--- NOTE | 2024-09-11 22:15 | RAD REPORT ---
Procedure: Chest Single View HISTORY: Chest pain COMPARISON: August 2024 FINDINGS: Mild bilateral pulmonary opacities. No significant pleural effusion noted. The heart is moderately enlarged. IMPRESSION: These findings probably indicate mild CHF
--- NOTE | 2024-09-11 22:24 | RAD REPORT ---
EXAM: CT brain without contrast HISTORY: Dizziness/confusion COMPARISON: July 2024 TECHNIQUE: Multiple contiguous axial images were obtained and a CT of the brain without contrast.. Sagittal and coronal reconstruction performed. Automated exposure control, adjustment of the mA and/or kV according to patient size, and/or iterative reconstruction. Unless otherwise specified, incidental f indings do not require dedicated imaging follow-up FINDINGS: An intracranial bleed is not seen Ventricles are normal caliber No extra-axial fluid collection noted Moderate low-density within periventricular, deep and subcortical white matter unchanged probably isc hemic changes secondary to small vessel disease. No fluid within the visualized sinuses or mastoids noted. IMPRESSION: No acute intracranial abnormality noted. If the patient continues to have symptoms to suggest an acute intracranial abnormality then MRI of th e brain would be recommended.
[2024-09-11 23:46] LABS: Absolute Eosinophils 0.1 K/uL (0-0.5); Absolute Lymphocytes (CBC) 0.3 K/uL (0.7-4.9); Absolute Monocytes 0.5 K/uL (0.1-1.3); Absolute Neutrophil 4.1 K/uL (1.8-8.0); Basophils % 0.8 % (0-1.3); Eosinophils % 1.5 % (0-4.4); Hematocrit 31.1 % (39.6-49.0); Hemoglobin 10.1 g/dL (13.6-17.9); Lymphocytes % 6.9 % (15.3-44.8); MCH 28.9 pg (27.0-35.0); MCHC 32.6 g/dL (32.0-36.0); MCV 88.9 fL (80-100); MPV 8.2 fL (7.6-11.3); Monocytes % 9.1 % (3.3-12.3); Neutrophils % 81.7 % (41.7-73.7); Nucleated Red Blood Cells % 0.2 % (0-0); Platelets 159 thou/uL (152-406); Red Cell Distribution Width 15.7 % (12.1-15.2)
[2024-09-11 23:54] LABS: PT Prothrombin Time 12.1 SECONDS (9.4-12.5); Protime INR 1.08
[2024-09-12 00:10] LABS: Thyroid Stimulating Hormone 0.673 uIU/mL (0.358-3.740)
[2024-09-12 00:12] LABS: Albumin 3.6 g/dL (3.4-5.0); Albumin/Globulin Ratio 1.1 (1.1-1.8); Anion Gap 8.5 mEq/L (5.0-15.0); Bilirubin Direct 0.2 mg/dL (0-0.2); Bilirubin Indirect, Calculated 0.3 mg/dL (0.2-0.8); Bilirubin Total 0.5 mg/dL (0.2-1.0); Globulin 3.3 g/dL (2.3-3.5); Magnesium 2.3 mg/dL (1.6-2.4); Potassium 4.5 mEq/L (3.5-5.1); Protein, Total 6.9 g/dL (6.4-8.2); Troponin High Sensitivity 39.1 pg/mL (<58.9)
--- NOTE | 2024-09-12 01:22 | EDPHYS ---
Physician Documentation [facility] Name: Alex Aguila Age: 64 yrs Sex: Male : 1960 Arrival Date: 09/11/2024 Time: 20:54 Bed 4 Private MD: ED Physician Robles Kennedy HPI: 09/11 21:00 This 64 yrs old Male presents to ER via Unassigned with complaints of High sp4 Blood Pressure, Low Blood Sugar. 09/12 01:14 64-year-old male presents with complaint of low blood sugar of 58 after dialysis also sp4 elevated blood pressure 224/117 . Historical: - Allergies: 09/11 21:34 NKA; lg3 - PMHx: 21:34 CHF; Diabetes - NIDDM; dialysis on M/W/F; ESRD; Hypertension; insomnia; lg3 - PSHx: 21:34 bilateral knee repairs; R shoulder; left arm fistula (R shoulder); lg3 - Immunization history:: Adult Immunizations up to date. - Infectious Disease History:: Denies. - Social history:: Smoking status: Patient denies any tobacco usage or history of. Patient/guardian denies using alcohol, street drugs. - Family history:: not pertinent. ROS: 09/12 01:14 Constitutional: Negative for fever, chills, and weight loss, positive elevated blood sp4 pressure, positive reported low sugar of 58 All other systems are negative, Exam: 01:12 Constitutional: This is a well developed, well nourished patient who is awake, alert, sp4 and in no acute distress. Left arm dialysis fistula with palpable thrill Head/Face: Normocephalic, atraumatic. Eyes: Pupils equal round and reactive to light, extra-ocular motions intact. Lids and lashes normal. Conjunctiva and sclera are not injected. Cornea within normal limits. Periorbital areas with no swelling, redness, or edema. ENT: Nares patent. No nasal discharge, no septal abnormalities noted. Tympanic membranes are normal and external auditory canals are clear. Oropharynx with no redness, swelling, or masses, exudates, or evidence of obstruction, uvula midline. Mucous membranes moist. Neck: Trachea midline, no thyromegaly or masses palpated, and no cervical lymphadenopathy. Supple, full range of motion without nuchal rigidity, or vertebral point tenderness. Chest/axilla: Normal chest wall appearance and motion. Nontender with no deformity. No lesions are appreciated. Cardiovascular: Regular rate and rhythm with a normal S1 and S2. No gallops, murmurs, or rubs. Normal PMI, no JVD. No pulse deficits. Respiratory: Lungs have equal breath sounds bilaterally, clear to auscultation and percussion. No rales, rhonchi or wheezes noted. No increased work of breathing, no retractions or nasal flaring. Abdomen/GI: Soft, with normal bowel sounds. No distension or tympany. No guarding or rebound. No evidence of tenderness throughout. Back: No spinal tenderness. No costovertebral tenderness. Skin: Warm, dry with normal turgor. Normal color with no rashes, no lesions, and no evidence of cellulitis. MS/ Extremity: Pulses equal, no cyanosis. Neurovascular intact. Full, normal range of motion. Neuro: Awake and alert, GCS 15, oriented to person, place, time, and situation. Cranial nerves II-XII grossly intact. Motor strength 5/5 in all extremities. Sensory grossly intact. Psych: Awake, alert, with orientation to person, place and time. Behavior, mood, and affect are within normal limits 01:12 ECG was reviewed by the Attending Physician. EKG at 2143 normal sinus rhythm rate 72 prolonged QT otherwise normal Vital Signs: 09/11 21:31 BP 122 / 91; Pulse 69; Resp 17 S; Temp 98.6(O); Pulse Ox 92% on R/A; Weight 99.79 kg lg3 (R); Height 5 ft. 7 in. (R); 23:00 BP 174 / 95; Pulse 70; Resp 17 S; Pulse Ox 93% on R/A; ha1 09/12 00:11 BP 163 / 80; Pulse 73; Resp 16 S; Pulse Ox 92% on R/A; ay 00:43 BP 163 / 76; Pulse 74; Resp 17 S; Pulse Ox 92% on R/A; ha1 01:43 BP 160 / 76; Pulse 72; Resp 17 S; Pulse Ox 92% on R/A; ha1 09/11 21:31 Body Mass Index 34.46 (99.79 kg, 170.18 cm) lg3 MDM: 09/11 21:18 Medical Screening Exam initiated sp4 09/12 01:14 Differential diagnosis: hypertensive crisis, Malignant HTN, CVA, intracerebral sp4 hemorrhage. Data reviewed: vital signs, nurses notes, lab test result(s), EKG, radiologic studies, CT scan, plain films. ED course: RADIOLOGYSERVICES REPORT Name: ALEX AGUILA Acct Number: [id number] :1960 Age:64 Sex:M Ord Phys: Robles Kennedy MD Unit Number: [id number] [facility]: Toya Andrew DO Status: REG ER ER Exam Date: 09/11/24 Procedure: Chest Single View HISTORY: Chest pain COMPARISON: August 2024 FINDINGS: Mild bilateral pulmonary opacities. No significant pleural effusion noted. The heart is moderately enlarged. IMPRESSION: These findings probably indicate mild CHF . ED course: EXAM: CT brain without contrast HISTORY: Dizziness/confusion COMPARISON: July 2024 TECHNIQUE: Multiple contiguous axial images were obtained and a CT of the brain without contrast.. Sagittal and coronal reconstruction performed. Automated exposure control, adjustment of the mA and/or kV according to patient size, and/or iterative reconstruction. Unless otherwise specified, incidental findings do not require dedicated imaging follow-up FINDINGS: An intracranial bleed is not seen Ventricles are normal caliber No extra-axial fluid collection noted Moderate low-density within periventricular, deep and subcortical white matter unchanged probably ischemic changes secondary to small vessel disease. No fluid within the visualized sinuses or mastoids noted. IMPRESSION: No acute intracranial abnormality noted. If the patient continues to have symptoms to suggest an acute intracranial abnormality then MRI of the brain would be recommended. . 01:19 Consideration of Admission/Observation Escalation of care including sp4 admission/observation considered. ED course: Patient stable for discharge home. Blood pressure improved and blood sugar is stable. Recommended eating some food after dialysis also advised follow-up with primary care physician for blood pressure medication adjustment.. 09/11 21:02 Order name: Basic Metabolic Panel; Complete Time: 00:34 sp4 09/11 21:02 Order name: CBC with Diff; Complete Time: 23:55 sp4 09/11 21:02 Order name: LFT's; Complete Time: 00:34 sp4 09/11 21:02 Order name: Magnesium; Complete Time: 00:34 sp4 09/11 21:02 Order name: NT PRO-BNP; Complete Time: 00:34 sp4 09/11 21:02 Order name: PT-INR; Complete Time: 23:55 sp4 09/11 21:02 Order name: Troponin HS; Complete Time: 00:34 sp4 09/11 21:35 Order name: Lipase; Complete Time: 00:34 sp4 09/11 21:35 Order name: TSH; Complete Time: 00:34 sp4 09/11 21:35 Order name: T4 Free; Complete Time: 00:34 sp4 09/11 21:49 Order name: Glucose, Ancillary Testing; Complete Time: 22:56 EDMS 05 00:52 Order name: Glucose, Ancillary Testing; Complete Time: 01:08 EDMS 09/11 21:02 Order name: XRAY Chest (1 view); Complete Time: 22:56 sp4 09/11 21:35 Order name: CT Head Brain wo Cont; Complete Time: 22:56 sp4 09/11 21:02 Order name: Cardiac monitoring; Complete Time: 21:48 sp4 09/11 21:02 Order name: EKG - Nurse/Tech; Complete Time: 21:48 sp4 09/11 21:02 Order name: IV Saline Lock; Complete Time: 23:02 sp4 04 21:02 Order name: Labs collected and sent; Complete Time: 23:02 sp4 04 21:02 Order name: O2 Per Protocol; Complete Time: 23:02 sp4 09/11 21:02 Order name: O2 Sat Monitoring; Complete Time: 23:03 sp4 09/12 00:35 Order name: Accucheck Blood Glucose; Complete Time: 00:42 sp4 EC/04 21:43 Rate is 72 beats/min. Rhythm is regular, Normal Sinus Rhythm. QRS Kelley is Normal. TN sp4 interval is normal. QRS interval is normal. QT interval is prolonged. No Q waves. T waves are Normal. No ST changes noted. Clinical impression: No evidence of ischemia. Interpreted by me. Reviewed by me. Administered Medications: No medications were administered Point of Care Testing: Blood Glucose: 21:34 Blood Glucose: 174 mg/dL; lg3 Ranges: Critical Glucose Levels:Adult <50 mg/dl or >400 mg/dl <40 mg/dl or >180 mg/dl Disposition Summary: 09/12/24 01:22 Discharge Ordered Notes: Location: Home sp4 Problem: new sp4 Symptoms: have improved sp4 Condition: Stable sp4 Diagnosis - Essential (primary) hypertension sp4 - Acute hypoglycemic episode, Acute fluid shift after dialysis, end-stage renal sp4 disease, Hypertensive urgency Followup: sp4 - With: Constantin Ellison MD - When: 2 - 3 days - Reason: Recheck today's complaints Discharge Instructions: - Discharge Summary Sheet sp4 - Eating Plan for Dialysis, [id number] sp4 Forms: - Patient Portal Instructions sp4 Signatures: Dispatcher [employer] Edith Talley RN RN lg3 Robles Kennedy MD MD sp4 Corrections: (The following items were deleted from the chart) 21:02 21:02 BASIC METABOLIC PANEL+C.LAB.BRZ ordered. EDMS EDMS 21:02 21:02 CBC+H.LAB.BRZ ordered. EDMS EDMS 21:02 21:02 HEPATIC FUNCTION+C.LAB.BRZ ordered. EDMS EDMS 21:02 21:02 MAGNESIUM+C.LAB.BRZ ordered. EDMS EDMS 21:02 21:02 PROBNP+C.LAB.BRZ ordered. EDMS EDMS 21:02 21:02 PROTIME (+INR)+COAG.LAB.BRZ ordered. EDMS EDMS 21:02 21:02 Troponin High Sensitivity+C.LAB.BRZ ordered. EDMS EDMS 21:02 21:02 Chest Single View+RAD.RAD.BRZ ordered. EDMS EDMS
--- NOTE | 2024-09-12 01:22 | ER ---
Nurse's Notes [facility] Name: Alex Cagle Age: 64 yrs Sex: Male : 1960 Arrival Date: 09/11/2024 Time: 20:54 Bed 4 Private MD: Diagnosis: Essential (primary) hypertension;Acute hypoglycemic episode, Acute fluid shift after dialysis, end-stage renal disease, Hypertensive urgency Presentation: 09/11 21:31 Chief complaint: Patient states: generalized weakness high BP and low blood sugar after lg3 dialysis today. Coronavirus screen: Client denies travel out of the [place] in the last 14 days. At this time, the client does not indicate any symptoms associated with coronavirus-19. Ebola Screen: No symptoms or risks identified at this time. Initial Sepsis Screen: Does the patient meet any 2 criteria? No. Patient's initial sepsis screen is negative. Does the patient have a suspected source of infection? No. Patient's initial sepsis screen is negative. Risk Assessment: Do you want to hurt yourself or someone else? Patient reports no desire to harm self or others. Onset of symptoms was September 11, 2024. 21:31 Method Of Arrival: Wheelchair lg3 21:31 Acuity: DEJAN 3 lg3 Triage Assessment: 21:34 General: Appears in no apparent distress. uncomfortable, Behavior is calm, cooperative. lg3 Pain: Denies pain. EENT: No deficits noted. No signs and/or symptoms were reported regarding the EENT system. Neuro: No deficits noted. Linder Agitation-Sedation Scale (RASS): 0 - Alert and Calm Level of Consciousness is awake, alert, obeys commands, Oriented to person, place, time, situation. Cardiovascular: No deficits noted. Denies chest pain, shortness of breath, Capillary refill < 3 seconds Clubbing of nail beds is absent JVD is absent Patient's skin is warm and dry. Respiratory: No deficits noted. Airway is patent Respiratory effort is even, unlabored, Respiratory pattern is regular, symmetrical. GI: No signs and/or symptoms were reported involving the gastrointestinal system. Abdomen is round non-distended. : No signs and/or symptoms were reported regarding the genitourinary system. Derm: No deficits noted. No signs and/or symptoms reported regarding the dermatologic system. Skin is intact, is healthy with good turgor, Skin is dry, Skin is normal, Skin temperature is warm. Musculoskeletal: Circulation, motion, and sensation intact. Range of motion: intact in all extremities. Historical: - Allergies: 21:34 NKA; lg3 - PMHx: 21:34 CHF; Diabetes - NIDDM; dialysis on M/W/F; ESRD; Hypertension; insomnia; lg3 - PSHx: 21:34 bilateral knee repairs; R shoulder; left arm fistula (R shoulder); lg3 - Immunization history:: Adult Immunizations up to date. - Infectious Disease History:: Denies. - Social history:: Smoking status: Patient denies any tobacco usage or history of. Patient/guardian denies using alcohol, street drugs. - Family history:: not pertinent. Screenin:[facility] ED Fall Risk Assessment (Adult) History of falling in the last 3 months, ha1 including since admission Yes- single mechanical fall (1 pt) Confusion or Disorientation No (0 pts) Intoxicated or Sedated No (0 pts) Impaired Gait Yes (1 pt) Mobility Assist Device Used Yes (1 pt) Altered Elimination Yes (1 pt) Score/Fall Risk Level 3 or more points = High Risk Oriented to surroundings, Maintained a safe environment, Educated pt \T\ family on fall prevention, incl call for assistance when getting out of bed, Hourly rounding (assess needs \T\ fall precautionary measures) done. Abuse screen: Denies threats or abuse. Denies injuries from another. Nutritional screening: No deficits noted. Tuberculosis screening: No symptoms or risk factors identified. Assessment: 22:00 General: Appears uncomfortable, Behavior is calm, cooperative. Pain: Denies pain. ha1 Neuro: Level of Consciousness is awake, alert, obeys commands, Oriented to person, place, time, situation. Cardiovascular: Patient's skin is warm and dry. Respiratory: Airway is patent Respiratory effort is even, unlabored, Respiratory pattern is regular, symmetrical. Derm: Skin is pink, warm \T\ dry. 09/12 00:00 Reassessment: Patient and/or family updated on plan of care and expected duration. Pain ha1 level reassessed. Patient denies pain at this time. 00:40 Reassessment: Patient and/or family updated on plan of care and expected duration. Pain ha1 level reassessed. notified Dr. Kennedy of glucose results. 01:30 Reassessment: Patient and/or family updated on plan of care and expected duration. Pain ha1 level reassessed. Respiratory: Airway is patent Respiratory effort is even, unlabored, Respiratory pattern is regular, symmetrical. Vital Signs: 09/11 21:31 BP 122 / 91; Pulse 69; Resp 17 S; Temp 98.6(O); Pulse Ox 92% on R/A; Weight 99.79 kg lg3 (R); Height 5 ft. 7 in. (R); 23:00 BP 174 / 95; Pulse 70; Resp 17 S; Pulse Ox 93% on R/A; ha1 09/12 00:11 BP 163 / 80; Pulse 73; Resp 16 S; Pulse Ox 92% on R/A; ay 00:43 BP 163 / 76; Pulse 74; Resp 17 S; Pulse Ox 92% on R/A; ha1 01:43 BP 160 / 76; Pulse 72; Resp 17 S; Pulse Ox 92% on R/A; ha1 09/11 21:31 Body Mass Index 34.46 (99.79 kg, 170.18 cm) lg3 ED Course: 09/11 20:56 Patient arrived in ED. jj6 21:00 Robles Kennedy MD is Attending Physician. sp4 21:34 Triage completed. lg3 21:34 Arm band placed on right wrist. lg3 21:37 Patient has correct armband on for positive identification. Placed in gown. Bed in low ha1 position. Call light in reach. Side rails up X2. Adult w/ patient. 21:52 XRAY Chest (1 view) In Process Unspecified. EDMS 22:04 CT Head Brain wo Cont In Process Unspecified. EDMS 23:03 Basic Metabolic Panel Sent. ha1 23:03 CBC with Diff Sent. ha1 23:03 LFT's Sent. ha1 23:03 Magnesium Sent. ha1 23:03 NT PRO-BNP Sent. ha1 23:03 PT-INR Sent. ha1 23:03 Troponin HS Sent. ha1 23:03 Inserted saline lock: 20 gauge in right antecubital area, using aseptic technique. ha1 Blood collected. Flushed with 10 mL NS. 23:52 Accessed peripheral vein via ultrasound, utilizing dynamic ultrasound technique Clean \T\ cm10 dry. Dressing intact. Good blood return. Flushes easily. 20g right forearm. 09/12 01:20 Constantin Ellison MD is Referral Physician. sp4 01:58 Provided Education on: Procedure Consent. ay 01:58 No provider procedures requiring assistance completed. IV discontinued, intact, ay bleeding controlled, No redness/swelling at site. Pressure dressing applied. 02:01 Leola Orozco, RN is Primary Nurse. ay Administered Medications: No medications were administered Medication: 09/11 23:05 VIS not applicable for this client. ha1 Point of Care Testing: Blood Glucose: 21:34 Blood Glucose: 174 mg/dL; lg3 Ranges: Outcome: 09/12 01:22 Discharge ordered by . sp4 :58 Discharged to home ambulatory, ay :58 Condition: stable 01:58 Discharge instructions given to patient, significant other, Instructed on discharge instructions, follow up and referral plans. 02:01 Patient left the ED. ay Signatures: Dispatcher [employer] EDMS Edith Alberts RN RN lg3 Elaine Huizar j6 Leandra Fisher, RN RN ha1 Robles Kennedy MD MD sp4 Livier Chilel RN RN 10 Leola Orozco RN RN ay
[2024-09-12 09:17] VITALS: TEMP 98.6
[2024-09-12 09:28] VITALS: O2SAT 92
[2024-09-12 09:31] VITALS: BP 160/76
== END 2024-09-12 02:01 | disposition home or self-care (01) ==
LOC: ER 20:54
DX: I10 Essential (primary) hypertension (principal); I16.0 Hypertensive urgency; E11.649 Type 2 diabetes mellitus with hypoglycemia without coma; E87.70 Fluid overload, unspecified; E11.22 Type 2 diabetes mellitus with diabetic chronic kidney disease; I13.2 Hypertensive heart and chronic kidney disease with heart failure and with stage 5 chronic kidney disease, or end stage renal disease; I50.9 Heart failure, unspecified; N18.6 End stage renal disease; Z99.2 Dependence on renal dialysis
CPT/HCPCS: 36415; 70450; 71045; 80048; 80076; 82947; 83690; 83735; 83880; 84439; 84443; 84484; 85025; 85610; 99284

== ENCOUNTER 2024-10-06 04:52 | Inpatient (IN) | payer OTHER ==
[2024-10-06 05:52] LABS: Absolute Lymphocytes (CBC) 0.3 K/uL (0.7-4.9); Absolute Monocytes 0.5 K/uL (0.1-1.3); Absolute Neutrophil 6.3 K/uL (1.8-8.0); Basophils % 0.4 % (0-1.3); Eosinophils % 0.6 % (0-4.4); Hematocrit 33.7 % (39.6-49.0); Hemoglobin 10.8 g/dL (13.6-17.9); Lymphocytes % 3.9 % (15.3-44.8); MCHC 32.1 g/dL (32.0-36.0); MCV 90.5 fL (80-100); MPV 7.1 fL (7.6-11.3); Monocytes % 7.1 % (3.3-12.3); Nucleated Red Blood Cells % 0.1 % (0-0); PT Prothrombin Time 11.5 SECONDS (9.4-12.5); Platelets 228 thou/uL (152-406); Protime INR 1.03; RBC Red Blood Cell Count 3.72 M/uL (4.33-5.43); Red Cell Distribution Width 16.3 % (12.1-15.2)
--- NOTE | 2024-10-06 06:57 | RAD REPORT ---
EXAM: Chest Single View HISTORY: DYSPNEA COMPARISON: 09/11/2024 FINDINGS: LUNGS/PLEURA: Low lung volumes with widespread airspace disease in engorgement of the central pulmona ry vasculature. MEDIASTINUM: The mediastinal silhouette is within normal limits. CARDIAC: Cardiomegaly. UPPER ABDOMEN: No significant abnormality. BONES: No acute fracture. LINES/TUBES/OTHER: N/A IMPRESSION: Findings most consistent with pulmonary edema.
[2024-10-06 07:16] LABS: Albumin 3.6 g/dL (3.4-5.0); Albumin/Globulin Ratio 1.1 (1.1-1.8); Anion Gap 12.4 mEq/L (5.0-15.0); Bilirubin Direct 0.2 mg/dL (0-0.2); Bilirubin Indirect, Calculated 0.2 mg/dL (0.2-0.8); Bilirubin Total 0.4 mg/dL (0.2-1.0); Globulin 3.3 g/dL (2.3-3.5); Potassium 4.4 mEq/L (3.5-5.1); Protein, Total 6.9 g/dL (6.4-8.2)
[2024-10-06 07:25] LABS: Troponin High Sensitivity 687.2 pg/mL (<58.9)
--- NOTE | 2024-10-06 07:38 | RAD REPORT ---
EXAMINATION: CT ABDOMEN AND PELVIS WITHOUT CONTRAST CLINICAL INDICATION: Male, 64 years old.ABD PAIN TECHNIQUE: CT abdomen and pelvis was performed, without IV contrast, as per department protocol. Axia l, sagittal and coronal reconstructions were obtained. One or more of the following dose reduction techniques were used: Automated exposure control, adjustment of the mA and/or kV according to the pat ient size, and/or iterative reconstruction. Unless otherwise specified, incidental findings do not require dedicated imaging follow-up. [id number]. IV CONTRAST: Not administered. COMPARISON: 10/30/2022 FINDINGS: The lack of intravenous contrast limits the sensitivity of this exam for evaluation of solid visceral organs, vascular structures, and retroperitoneum. LOWER CHEST: Probable pulmonary edema with bilateral pleural effusions. Cardiomegaly.No significant p ericardial effusion. Multivessel coronary artery calcifications. UPPER GI: No significant abnormality. LIVER: No significant focal abnormality. GALLBLADDER/BILE DUCTS: Cholecystectomy. Mild extra-hepatic biliary ductal dilatation is likely relat ed to the post-cholecystectomy state. Consider correlating with LFT's.? PANCREAS: No mass, ductal dilation, or aftab-pancreatic fluid. SPLEEN: Unremarkable. ADRENALS: No adrenal masses. KIDNEYS AND URETERS: Atrophic kidneys bilaterally.Low density and/or too small to characterize renal lesions which are statistically benign. ABDOMINAL AORTA AND OTHER VESSELS: Mild atherosclerotic changes. PERITONEUM: Mild ascites. LYMPH NODES: No pathologic lymphadenopathy. ABDOMINAL WALL: No significant abnormality. SMALL BOWEL/COLON: Small bowel has normal course and caliber. No colonic wall thickening or pericolon ic inflammatory changes.Normal appendix. Mild diverticulosis without diverticulitis. URINARY BLADDER: Circumferential thickening which is nonspecific. REPRODUCTIVE ORGANS: No pathologic process. MUSCULOSKELETAL: No acute or suspicious osseous abnormality. ADDITIONAL FINDINGS: None. IMPRESSION: No acute or significant abnormalities in the abdomen or pelvis, with evaluation limited by lack of IV contrast.
[2024-10-06] MEDS ORDERED: NALOXONE 0.4 MG/ML VIAL ONE (08:00)
--- NOTE | 2024-10-06 09:14 | EDPHYS ---
Physician Documentation [facility] Name: Alex Cagle Age: 64 yrs Sex: Male : 1960 Arrival Date: 10/06/2024 Time: 04:52 Bed 3 Private MD: ED Physician Rodríguez Olguin HPI: 10/06 05:02 This 64 yrs old Male presents to ER via Unassigned with complaints of ec2 Overdose. 05:02 Patient arrives today due to concern for altered mental status and possible overdose. ec2 Patient was found with increased altered mental status. EMS reports they found him with agonal breathing and subsequently administered Narcan with improvement in his respiratory status. Patient reports that he did not take any medications or any drugs however does have Tylenol with codeine prescribed to him.. Historical: - Allergies: 05:44 NKA; bm8 - Home Meds: 05:44 acetaminophen-codeine 300-30 mg Oral tab every 6 hours [Active]; amlodipine oral bm8 [Active]; - PMHx: 05:44 CHF; dialysis on M/W/F; Diabetes - NIDDM; ESRD; Hypertension; insomnia; bm8 - PSHx: 05:44 bilateral knee repairs; R shoulder; Left arm fistula (ld); bm8 - Immunization history:: Adult Immunizations unknown. - Infectious Disease History:: Denies. - Social history:: Smoking status: Patient reports the use of cigarette tobacco products, Patient uses alcohol, street drugs. ROS: 05:02 Constitutional: as per hpi ec2 Exam: 05:02 Constitutional: GEN: NAD Head: atraumatic Eyes: EOMI Ears: External ears are ec2 normal. CV: regular rate LUNGS: no respiratory distress, scattered rhonchi noted throughout. ABD: non-distended, soft, nontender, not guarding, not rigid SKIN: no evidence of rashes MSK: no evidence of trauma Vital Signs: 04:53 BP 197 / 94; Pulse 76; Resp 12; Temp 97.6; Pulse Ox 100% on 15 lpm NRB mask with NPA in bm8 place; Pain 8/10; 05:53 BP 154 / 84; Pulse 75; Resp 18; Temp 97.6; Pulse Ox 100% on 10 lpm Non-rebreather mask; bm8 Pain 0/10; 06:52 BP 147 / 106; Pulse 73; Resp 20; Pulse Ox 100% on Non-rebreather mask; dd2 08:00 BP 147 / 78; Pulse 70; Resp 19; Pulse Ox 100% ; bp 10:00 BP 143 / 81; Pulse 68; Resp 16; Pulse Ox 98% ; bp 12:00 BP 130 / 77; Pulse 71; Resp 19; Pulse Ox 98% ; bp 04:53 Pain Scale: Adult bm8 05:53 Pain Scale: Adult bm8 Elías Coma Score: 05:53 Eye Response: spontaneous(4). Motor Response: obeys commands(6). Verbal Response: bm8 oriented(5). Total: 15. MDM: 05:01 Medical Screening Exam initiated ec2 05:02 Data reviewed: vital signs, nurses notes. ED course: Patient arrives today for ec2 evaluation of altered mental status and possible overdose. Examination yields spontaneously breathing individuals otherwise in no acute distress with some tachypnea identified. Will obtain a cardiac workup. Differential diagnosis includes volume overload, opiate overdose, ACS. EKG obtained, independently reviewed and interpreted by me, shows normal sinus rhythm, rate of 76, no acute ST segment elevations, intervals are nonconcerning, PAC noted.. 06:30 ED course: Patient had soiled himself, on changing patient noted to have jet black ec2 stools. Patient not on any blood thinners. With some type and screen as well. Will add on LFTs. reports that he had noted some black stools for some time however unclear what the timeframe is.. 07:22 ED course: Patient signed out to oncoming physician, patient with pending labs and CT ec2 abdomen pelvis. Patient with melanic stools anticipate admission for further GI evaluation, patient also with shortness of breath and volume overloaded.. 08:08 ED course: Patient minimally responsive, glucose checked and was normal. ABG shows rn respiratory acidosis with pCO2 97.4. Called for immediate BiPAP. If patient does not respond to BiPAP will intubate.. 09:11 Consideration of Admission/Observation Patient was admitted/placed on observation. rn Escalation of care including admission/observation considered. Independent interpretation of the following test(s) in the Emergency Department X-Ray: My interpretation is Chest x-ray with bilateral pulmonary edema per my interpretation. Counseling: I had a detailed discussion with the patient and/or guardian regarding the historical points, exam findings, and any diagnostic results supporting the discharge/admit diagnosis, lab results, radiology results, the need for further work-up and treatment in the hospital. ED course: Patient responded to BiPAP, now opens eyes, no need for intubation at this time. Combination of pulmonary edema and volume overload with CO2 retention.. ED course: I personally spent 35 minutes engaged in work directly related to the individual patient's care. This does not include any time spent performing procedures. The patient has been deemed critically ill because of pulmonary edema, ESRD, altered mental status with respiratory acidosis and CO2 retention requiring BiPAP and almost intubation.. 09:11 Care significantly affected by the following chronic conditions: Hypertension, Chronic rn Kidney Disease. 10/06 05:01 Order name: Basic Metabolic Panel; Complete Time: 07:42 ec2 10/06 05:01 Order name: CBC with Diff [facility] 10/06 05:01 Order name: NT PRO-BNP; Complete Time: 07:42 ec2 10/06 05:01 Order name: PT-INR; Complete Time: 05:56 ec2 10/06 05:01 Order name: Troponin HS; Complete Time: 07:42 ec2 10/06 05:32 Order name: UDS [facility] 10/06 06:30 Order name: Type And Screen [facility] 10/06 06:30 Order name: LFT's; Complete Time: 07:42 ec2 10/06 07:47 Order name: ABG rn 10/06 07:57 Order name: Antibody Identification [facility] 10/06 08:02 Order name: Glucose, Ancillary Testing; Complete Time: 09:16 [facility] 10/06 09:22 Order name: ABO/RH no charge [facility] 10/06 09:52 Order name: CBC Smear Scan [facility] 10/06 10:03 Order name: ABG Arterial Blood Gas [facility] 10/06 10:36 Order name: Sendout Antibody ID [facility] 10/06 11:11 Order name: CBC with Automated Diff [facility] 10/06 11:11 Order name: CBC with Automated Diff [facility] 10/06 11:11 Order name: CBC with Automated Diff [facility] 10/06 11:11 Order name: CBC with Automated Diff [facility] 10/06 11:11 Order name: CBC with Automated Diff [facility] 10/06 11:11 Order name: Comprehensive Metabolic Panel [facility] 10/06 11:11 Order name: Comprehensive Metabolic Panel [facility] 10/06 11:11 Order name: Comprehensive Metabolic Panel [facility] 10/06 11:11 Order name: Comprehensive Metabolic Panel [facility] 10/06 11:11 Order name: Comprehensive Metabolic Panel [facility] 10/06 11:11 Order name: Magnesium EDMS 10/06 11:11 Order name: Magnesium EDMS 10/06 11:11 Order name: Magnesium EDMS 10/06 11:11 Order name: Magnesium EDMS 10/06 11:11 Order name: Magnesium EDMS 10/06 11:11 Order name: NT PRO-BNP [facility]DC 10/06 11:11 Order name: NT PRO-BNP [facility] 10/06 11:11 Order name: NT PRO-BNP [facility] 10/06 11:11 Order name: NT PRO-BNP [facility] 10/06 11:11 Order name: NT PRO-BNP [facility] 10/06 11:11 Order name: Phosphorus [facility] 10/06 11:11 Order name: Phosphorus [facility] 10/06 11:11 Order name: Phosphorus [facility] 10/06 11:11 Order name: Phosphorus [facility] 10/06 11:11 Order name: Phosphorus [facility] 10/06 11:11 Order name: Troponin High Sensitivity [facility] 10/06 11:11 Order name: Troponin High Sensitivity [facility] 10/06 11:11 Order name: Troponin High Sensitivity [facility] 10/06 11:11 Order name: Troponin High Sensitivity [facility] 10/06 05:01 Order name: XRAY Chest (1 view); Complete Time: 06:59 ec2 10/06 07:00 Order name: CT Abd/Pelvis - Without Contrast; Complete Time: 07:42 ec2 10/06 11:11 Order name: CONS Physician Consult [facility] 10/06 05:01 Order name: Cardiac monitoring; Complete Time: 05:07 ec2 10/06 05:01 Order name: EKG - Nurse/Tech; Complete Time: 05:03 ec2 10/06 05:01 Order name: IV Saline Lock; Complete Time: 05:33 ec2 10/06 05:01 Order name: Labs collected and sent; Complete Time: 05:33 ec2 10/06 05:01 Order name: O2 Per Protocol; Complete Time: 05:07 ec2 10/06 05:01 Order name: O2 Sat Monitoring; Complete Time: 05:07 ec2 10/06 06:26 Order name: Labs - recollect needed: recollect ALL the blood/ Hemolyzed per Светлана in eb the lab; Complete Time: 06:52 10/06 07:47 Order name: Glucose Level; Complete Time: 08:05 rn Administered Medications: 08:05 Drug: Naloxone IVP 0.4 mg IVP once Route: IVP; Site: right forearm; bp 12:07 Follow up: Response: No adverse reaction bp Disposition Summary: 10/06/24 09:13 Hospitalization Ordered Notes: Hospitalization Status: Inpatient Admission rn Provider: Tisha Oliveros rn Location: Intensive Care Unit rn Condition: Stable rn Problem: new rn Symptoms: have improved rn Bed/Room Type: Standard rn Room Assignment: 6-(10/06/24 11:19) eb Diagnosis - Acute pulmonary edema rn - Respiratory acidosis with CO2 retention rn - End stage renal disease rn Forms: - Medication Reconciliation Form rn - SBAR form rn - 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 Total time: 35 minutes rn Signatures: Dispatcher [employer] EDMS Rodríguez Olguin MD MD rn Peltier, Brian, RN RN bp Feli Rogers eb Ciaran Mccracken MD MD ec2 Charles Chavez RN RN bm8 Corrections: (The following items were deleted from the chart) 05:02 05:02 Chest Single View+RAD.RAD.BRZ ordered. EDMS EDMS 06:30 06:30 TYPE AND SCREEN+BB.LAB.BRZ ordered. EDMS EDMS 06:30 06:30 HEPATIC FUNCTION+C.LAB.BRZ ordered. EDMS EDMS 07:47 07:47 Arterial Blood Gas+RC.LAB.BRZ ordered. EDMS EDMS 11:19 09:13 rn eb
--- NOTE | 2024-10-06 09:14 | ER ---
Nurse's Notes [facility] Name: Alex Cagle Age: 64 yrs Sex: Male : 1960 Arrival Date: 10/06/2024 Time: 04:52 Bed 3 Private MD: Diagnosis: Acute pulmonary edema;Respiratory acidosis with CO2 retention;End stage renal disease Presentation: 10/06 04:53 Chief complaint: EMS states: Toned our for unconscious unresponsive pt. On arrival pt bm8 had pinpoint pupils breathing about 5-7 bpm. We gave 8 of narcan total and pt is more responsive. Coronavirus screen: Vaccine status: Patient reports having had a previously documented Covid positive illness. At this time, the client does not indicate any symptoms associated with coronavirus-19. Ebola Screen: Patient negative for fever greater than or equal to 101.5 degrees Fahrenheit, and additional compatible Ebola Virus Disease symptoms Patient denies exposure to infectious person. Patient denies travel to an Ebola-affected area in the 21 days before illness onset. No symptoms or risks identified at this time. 05:16 Initial Sepsis Screen: Does the patient meet any 2 criteria? Altered Mental Status. No. bm8 Patient's initial sepsis screen is negative. Does the patient have a suspected source of infection? No. Patient's initial sepsis screen is negative. Risk Assessment: Do you want to hurt yourself or someone else? Patient reports no desire to harm self or others. Onset of symptoms is unknown. 05:16 Method Of Arrival: EMS: [facility] bm8 05:16 Acuity: DEJAN 2 bm8 05:52 Care prior to arrival: Assisted ventilation, nasal trumpet, Medication(s) given: NARCAN bm8 8 MG IV initiated. 20 GA, in the right antecubital area, Glucose check: 141 Oxygen administered. via a non-rebreather mask, via AMBU bag IO IN LEFT TIBIA. Triage Assessment: 04:53 General: Appears in no apparent distress. comfortable, obese, unkempt, well nourished, bm8 Behavior is drowsy. 04:53 Pain: Complains of pain in "ALL OVER". EENT: Nares PT HAS NPA IN RIGHT NARES. Neuro: bm8 Level of Consciousness is confused, lethargic, Oriented to person, place, situation. Cardiovascular: Heart tones S1 S2 present Capillary refill < 3 seconds in bilateral fingers Patient's skin is warm and dry. Rhythm is sinus rhythm. Respiratory: Airway is patent via nasal trumpet Trachea midline Respiratory effort is shallow, Respiratory pattern is regular, Breath sounds are clear bilaterally. GI: No signs and/or symptoms were reported involving the gastrointestinal system. : No signs and/or symptoms were reported regarding the genitourinary system. Derm: FACIAL TISSUE SWELLING AROUND LEFT EYE, NO OBVIOUS BRUISING. Musculoskeletal: No deficits noted. Historical: - Allergies: : NKA; bm8 - Home Meds: : acetaminophen-codeine 300-30 mg Oral tab every 6 hours [Active]; amlodipine oral bm8 [Active]; - PMHx: :44 CHF; dialysis on M/W/F; Diabetes - NIDDM; ESRD; Hypertension; insomnia; bm8 - PSHx: :44 bilateral knee repairs; R shoulder; Left arm fistula (ld); bm8 - Immunization history:: Adult Immunizations unknown. - Infectious Disease History:: Denies. - Social history:: Smoking status: Patient reports the use of cigarette tobacco products, Patient uses alcohol, street drugs. Screenin:53 [facility] ED Fall Risk Assessment (Adult) History of falling in the last 3 months, bm8 including since admission Yes- physiologic fall (2 pts) Confusion or Disorientation Yes (5 pts) Intoxicated or Sedated Yes (3 pts) Impaired Gait Yes (1 pt) Mobility Assist Device Used No (0 pt) Altered Elimination Yes (1 pt) Score/Fall Risk Level 3 or more points = High Risk Oriented to surroundings, Maintained a safe environment, Educated pt \\T\\ family on fall prevention, incl call for assistance when getting out of bed, Assessed \\T\\ reinforced patient's understanding of fall precautions, Hourly rounding (assess needs \\T\\ fall precautionary measures) done, Used ambulatory aids as needed (educated on \\T\\ assisted with), Used gait belt as appropriate Implemented a Fall Risk Plan of Care. Abuse screen: Denies threats or abuse. Nutritional screening: No deficits noted. Tuberculosis screening: No symptoms or risk factors identified. Assessment: 05:53 Reassessment: Patient appears in no apparent distress at this time. Patient and/or bm8 family updated on plan of care and expected duration. Pain level reassessed. Respiratory: Airway is patent via nasal trumpet Respiratory effort is even, unlabored, SNORING RESPIRATIONS Breath sounds are clear bilaterally. 06:53 Reassessment: IO IN LEFT TIBIA DISCONTINUED. bm8 06:56 Reassessment: CLEANED PT BECAUSE HE STATED THAT HE HAD SOILED HIMSELF, WHILE CLEANING bm8 PT HAD BLACK TARRY STOOL. Provider NOTIFIED. 08:00 Reassessment: PT PLACED ON BIPAP 22/8, RATE 18, 45%. bp 12:03 Reassessment: REPORT TO FRANK SAAB FOR ICU 6. bp Overdose: 12:07 [place] Suicide Severity Screening: "In the past month, have you wished you were bp or wished you could go to sleep and not wake up?" Patient responds "no." "In the past month, have you actually had any thoughts of killing yourself?" Patient responds "no." "In your lifetime, have you ever done anything, started to do anything, or prepared to do anything to end your life?" Patient responds "no.". Vital Signs: 04:53 BP 197 / 94; Pulse 76; Resp 12; Temp 97.6; Pulse Ox 100% on 15 lpm NRB mask with NPA in bm8 place; Pain 8/10; 05:53 BP 154 / 84; Pulse 75; Resp 18; Temp 97.6; Pulse Ox 100% on 10 lpm Non-rebreather mask; bm8 Pain 0/10; 06:52 BP 147 / 106; Pulse 73; Resp 20; Pulse Ox 100% on Non-rebreather mask; dd2 08:00 BP 147 / 78; Pulse 70; Resp 19; Pulse Ox 100% ; bp 10:00 BP 143 / 81; Pulse 68; Resp 16; Pulse Ox 98% ; bp 12:00 BP 130 / 77; Pulse 71; Resp 19; Pulse Ox 98% ; bp 04:53 Pain Scale: Adult bm8 05:53 Pain Scale: Adult bm8 Elías Coma Score: 05:53 Eye Response: spontaneous(4). Motor Response: obeys commands(6). Verbal Response: bm8 oriented(5). Total: 15. ED Course: 04:52 Patient arrived in ED. [id number] 04:53 Arm band placed on left wrist. bm8 04:59 Ciaran Mccracken MD is Attending Physician. ec2 05:03 EKG done, by ED staff. vk 05:05 Charles Chavez, RN is Primary Nurse. bm8 05:19 Triage completed. bm8 05:26 XRAY Chest (1 view) In Process Unspecified. EDMS 05:53 No provider procedures requiring assistance completed. Inserted saline lock: 20 gauge bm8 in right antecubital area, using aseptic technique. Blood collected. Flushed with 10 mL NS EMS 20G IV DISCONTINUED DUE TO NO BLOOD DRAW BACK. Oxygen administration via non-rebreather mask 10L Response to oxygen therapy: symptoms improved. 05:53 Patient has correct armband on for positive identification. Placed in gown. Bed in low bm8 position. Call light in reach. Side rails up X 1. Client placed on continuous cardiac and pulse oximetry monitoring. NIBP monitoring applied. legal administrator on. Pulse ox on. NIBP on. Door closed. Noise minimized. Lights dimmed. Warm blanket given. Pillow given. Verbal reassurance given. Head of bed elevated. 06:57 Report given to Janes RN's. bm8 07:22 Attending Physician role handed off by Ciaran Mccracken MD ec2 07:22 Rodríguez Olguin MD is Attending Physician. ec2 07:26 CT Abd/Pelvis - Without Contrast In Process Unspecified. EDMS 09:12 Tisha Oliveros MD is Hospitalizing Provider. rn 12:05 Patient admitted, IV remains in place. bp Administered Medications: 08:05 Drug: Naloxone IVP 0.4 mg IVP once Route: IVP; Site: right forearm; bp 12:07 Follow up: Response: No adverse reaction bp Medication: 05:53 VIS not applicable for this client. bm8 Outcome: 09:13 Decision to Hospitalize by Provider. rn 12:05 Admitted to ICU accompanied by nurse, via stretcher, room 6, with oxygen, on monitor, bp Report called to FRANK SAAB 12:05 Condition: stable 12:05 Instructed on the need for admit, 12:41 Patient left the ED. bp Signatures: Dispatcher [employer] EDMS Rodríguez Olguin MD MD rn Peltier, Brian, RN RN bp BhupendraElaine jj6 Ciaran Mccracken MD MD ec2 Linda Weiner Charles Chavez, RN RN bm8 BARTOLOME, RADHA, RN RN dd2 Corrections: (The following items were deleted from the chart) 05:44 05:16 Chief complaint: EMS states: Toned our for unconscious unresponsive pt. On 8 arrival pt had pinpoint pupils breathing about 5-7 bpm. We gave 8 of narcan total and pt is more responsive. [facility] 05:44 05:16 Coronavirus screen: Vaccine status: Patient reports having had a previously bm8 documented Covid positive illness. At this time, the client does not indicate any symptoms associated with coronavirus-19. [facility] 05:44 05:16 Ebola Screen: Patient negative for fever greater than or equal to 101.5 degrees bm8 Fahrenheit, and additional compatible Ebola Virus Disease symptoms Patient denies exposure to infectious person. Patient denies travel to an Ebola-affected area in the 21 days before illness onset. No symptoms or risks identified at this time. [facility] 05:44 05:16 BP 197 / 94; Pulse 76bpm; Resp 12bpm; Pulse Ox 100% 15 lpm NRB mask with NPA in 8 place; Temp 97.6F; Pain 8/10, Adult; bm8
[2024-10-06 09:30] LABS: Blood O2 Saturation 98.1 % (92-98.5)
[2024-10-06 09:31] LABS: Arterial Blood Carboxyhemoglob 0.8 % (0-1.5); Blood Gas Oxyhemoglobin 95.3 % (94-97); Blood Gas THB 10.7 g/dl (12-18)
[2024-10-06 09:51] LABS: Anisocytosis 1+; Blood Morphology Comment NOTED (NOT SEEN); Platelet Estimate ADEQ; White Blood Cell Scan OK (OK)
[2024-10-06 09:52] LABS: Ovalocytes SLIGHT
[2024-10-06 10:35] LABS: Blood Gas Oxyhemoglobin 93.9 % (94-97); Blood Gas THB 10.4 g/dl (12-18); Blood O2 Saturation 96.8 % (92-98.5)
[2024-10-06] MEDS ORDERED: ONDANSETRON 4 MG/2 ML VIAL IV PRN (11:05)
[2024-10-06] MEDS ORDERED: SODIUM CHLORIDE 0.9% 10ML INJ IV PRN (11:12)
[2024-10-06] MEDS: INSULIN REGULAR (HUMAN) 100 UNIT/ML SQ SCH (13:29)
[2024-10-06] MEDS ORDERED: D50W 25 GM/50 ML SYRINGE IV PRN (13:31)
--- NOTE | 2024-10-06 13:38 | P.HP ---
Certification for Inpatient Patient admitted to: Inpatient <Kandy Perez - Last Filed: 10/06/24 14:19> Patient History Date of Service: 10/06/24 Reason for admission: Acute hypoxic hypercarbic respiratory failure History of Present Illness: 64-year-old male with history with history of hypertension, ESRD on HD, chronic diastolic congestive heart failure, insulin-dependent diabetes presents the emergency department via EMS after being found difficult to arouse at home. Per medical record patient was given Narcan and aroused to some stimuli. denies Mr. Cagle taking substance abuse or strong narcotic. Possible suspected overdose. at bedside is primary historian. She reports the patient has dialysis Monday, reports not missing previous HD session. She reports he reported short of breath for the past 3 weeks, and requesting home O2 with PCP. She reports this morning he was found unresponsive/difficult arouse, she called 911. On arrival to the emergency room he was noted to be in acute hypoxic hypercarbic respiratory failure was placed on BiPAP Co2 97.4, repeat after being on bipap repeat C02 77. (eyes open to painful stimuli) Nephrology was notified for emergent dialysis by ED. Patient had noted elevated troponin,687.2, elevated [id number], EKG normal sinus rhythm, rate of 76, no acute ST segment elevations, reported dark tarry stools prior to admission for "some time." HH 10.8, repeat 10.8 Type and screen ordered with GI consult, anticoagulation held. GI consulted to eval. plan to admit to ICU on BiPAP, with nephrology, GI to consult, cardiology to consult for elevated troponin. - Past Medical/Surgical History Diabetic: Yes -: End-stage renal disease on hemodialysis -: Hypertension -: Type 2 Diabetes -: Chronic IJ blood clot -: CHF -: Peritoneal dialysis port -: shoulder surgery -: left upper arm fistula -: Knee and shoulder surgery Psychosocial/ Personal History: Patient with 5 children. - Family History Father -: Heart disease - Social History Smoking Status: Former smoker Alcohol use: No CD- Drugs: No Caffeine use: Yes Place of Residence: Home <Kandy Perez - Last Filed: 10/06/24 14:19> Date of Service: 10/06/24 <Tisha Oliveros - Last Filed: 10/07/24 00:23> Allergies No Known Allergies Allergy (Verified 01/01/21 21:09) Home Medications: Amlodipine Besylate/Benazepril [Amlodipine-Benazepril 10-20 mg] 1 cap PO TID 06/01/24 Hydralazine [Apresoline*] 25 mg PO TID 30 Days #90 tab 06/06/24 Sevelamer Carbonate [Renvela*] 3,200 mg PO TIDWM 30 Days #90 tablet 06/06/24 carvediloL [Coreg*] 25 mg PO BID 30 Days #60 tab 06/06/24 Zolpidem Tartrate [Ambien] 10 mg PO BEDTIME PRN PRN 09/01/24 Acetaminophen with Codeine [Acetaminophen-Cod #4 Tablet] 1 each PO Q1D 10/06/24 Lisinopril [Zestril] 20 mg PO BID 10/06/24 Review of Systems is unable to be obtained <Kandy Perez - Last Filed: 10/06/24 14:19> Physical Examination - Vital Signs Temperature: 98.6 F Blood Pressure: 135/71 Pulse: 74 Respirations: 22 Pulse Ox (%): 96 - Physical Exam General: Moderate distress, Other (Arouses with painful stimuli, eyes open to verbal stimulation) HEENT: Atraumatic, Normocephalic Neck: Supple, 2+ carotid pulse no bruit Respiratory: Diminished, Crackles/rales Capillary refill: <2 Seconds Gastrointestinal: Other (Obese abdomen) Musculoskeletal: No swelling, No contractures Integumentary: No breakdown, No significant lesion Neurological: Other (confused, lethargic), Abnormal speech, Abnormal strength, Abnormal tone - Studies Laboratory Data (last 24 hrs) 10/06/24 10/06/24 10/06/24 06:45 05:35 05:35 WBC 7.10 Hgb 10.8 L Hct 33.7 L Plt Count 228 PT 11.5 INR 1.03 Sodium 133 L Potassium 4.4 BUN 33 H Creatinine 8.83 H Glucose 109 H Total Bilirubin 0.4 AST 137 H ALT 112 H Alkaline Phosphatase 103 <Kandy Perez - Last Filed: 10/06/24 14:19> - Studies Laboratory Data (last 24 hrs) 10/06/24 10/06/24 10/06/24 06:45 05:35 05:35 WBC 7.10 Hgb 10.8 L Hct 33.7 L Plt Count 228 PT 11.5 INR 1.03 Sodium 133 L Potassium 4.4 BUN 33 H Creatinine 8.83 H Glucose 109 H Total Bilirubin 0.4 AST 137 H ALT 112 H Alkaline Phosphatase 103 <ArlinTeramindy Jennifer - Last Filed: 10/07/24 00:23> Assessment and Plan - Problems (Diagnosis) (1) Acute respiratory failure with hypoxia and hypercapnia Current Visit: No Status: Acute (2) Respiratory acidosis Current Visit: Yes Status: Acute (3) Pulmonary edema Current Visit: Yes Status: Acute (4) End-stage renal disease on hemodialysis Current Visit: Yes Status: Acute (5) Decompensated heart failure Current Visit: Yes Status: Acute (6) NSTEMI (non-ST elevated myocardial infarction) Current Visit: Yes Status: Acute (7) GI bleed Current Visit: Yes Status: Acute Qualifiers: GI bleed type/associated pathology: melena Qualified Code(s): K92.1 - Melena - Plan Assessment -Admit to ICU on BiPAP -Acute hypoxic hypercarbic respiratory failure -ABGs, chest x-ray -End-stage renal disease on hemodialysis, -Nephrology consulted for emergent dialysis -Trend kidney function, -Trend electrolytes replace electrolytes as needed Acute on chronic heart failure -NSTEMI Hypertensive urgency -Cardiology consult -Trend troponins, BNP -Telemetry -Antihypertensives as needed Suspected GI bleed -GI consult to eval -Black tarry stool -Serial H&H Type and cross less than 7 -PPI, IV Zosyn, Insulin-dependent diabetes mellitus Hypoglycemia, -hypoglycemia per -Accu-Cheks, Full code Diet n.p.o. DVT SCDs, secondary to possible GI bleed Critical care time with Patient 65-minute Discharge Plan: Home - Advance Directives Does patient have a Living Will: No Does patient have a Durable POA for Healthcare: No - Code Status/Comfort Care Code Status: Full Code Critical Care: Yes Time Spent Managing Pts Care (In Minutes): 65 <Kandy Perez - Last Filed: 10/06/24 14:19> Date of Service: 10/06/24 Patient was seen and examined. Events of the last 24 hours have been noted. Spoke with with [facility] regarding patient's clinical picture after evaluating and examining the patient independently. I performed a substantial part of the MDM during this patient's care today. I personally made or approved the documented management plan and acknowledge its risk of complications. I agree with the findings and documentation provided in the [facility]'s notes. patient became more hypercapnic. Patient's pH had increased to 7.14 and patient's pCO2 had decreased to 77. However repeat ABG showed worsening pH and pCO2. Patient was intubated. Blood gases have been reordered for 8:00 p.m.. Will repeat troponins as well. Patient to be hemodialyzed per Nephrology. Patient is a 64-year-old gentleman with history of ESRD who came to the hospital Difficult to arouse. Patient was placed on BiPAP and patient was found to be acidotic. Patient was given multiple doses of Narcan with mild improvement. patient was placed on BiPAP in blood gases has improved and patient went to the floor. However while on the floor patient was still lethargic and as patient became more acidotic decision was made to proceed with intubation. Anesthesiologist came out & assisted with intubating the patient. Repeat blood gases later today. Elevated troponin and Cardiology consultation. <Tisha Oliveros - Last Filed: 10/07/24 00:23>
[2024-10-06] MEDS: D50W 25 GM/50 ML SYRINGE IV PRN (13:43)
[2024-10-06] MEDS: PANTOPRAZOLE 40 MG INJ IVP SCH (13:47)
[2024-10-06] MEDS ORDERED: NA CHLORIDE 0.9% 250 ML IV SCH (14:00)
[2024-10-06] MEDS: PIPER TAZO 3.375 GM in NA CHLORIDE 0.9% 100 ML IV SCH (14:44)
[2024-10-06] MEDS: NALOXONE HCL 2 MG/2 ML VIAL IV ONE (17:21)
[2024-10-06] MEDS: NA CHLORIDE 0.9% 500 ML ONE (17:44)
[2024-10-06] MEDS: DEXMEDETOMIDINE HCL 200 MCG/2 ML VIAL ONE (18:03)
[2024-10-06] MEDS: NA CHLORIDE 0.9% 100 ML ONE (18:04)
[2024-10-06] MEDS ORDERED: MIDAZOLAM HCL 2 MG/2 ML INJ IV PRN (18:11)
[2024-10-06] MEDS ORDERED: HALOPERIDOL LACT 5 MG/ML INJ IV PRN (18:11)
[2024-10-06] MEDS: DEXMEDETOMIDINE HCL 200 MCG in NA CHLORIDE 0.9% 98 ML IV SCH (18:15)
[2024-10-06] MEDS: propofoL 1,000 MG/100 ML VIAL IV ONE (18:23)
[2024-10-06] MEDS: propofoL 1,000 MG/100 ML VIAL IV SCH (18:30)
[2024-10-06 18:38] LABS: Blood Gas Oxyhemoglobin 83.6 % (94-97); Blood O2 Saturation 86.1 % (92-98.5)
[2024-10-06 18:39] LABS: Blood Gas THB 10.6 g/dl (12-18)
--- NOTE | 2024-10-06 18:44 | P.CNS ---
Date of Consult: 10/06/24 Reason for Consult: Respiratory failure patient is on a ventilator Chief Complaint: Acute hypoxic hypercarbic respiratory failure History of Present Illness: Patient is 64 years of age with a history of end-stage renal disease metabolic syndrome diabetes heart failure was found unresponsive came and tried BiPAP became more agitated and was intubated and appears to have hypercapnic respiratory failure history of smoking he is currently intubated stable Allergies No Known Allergies Allergy (Verified 01/01/21 21:09) Home Medications: Amlodipine Besylate/Benazepril [Amlodipine-Benazepril 10-20 mg] 1 cap PO TID 06/01/24 Hydralazine [Apresoline*] 25 mg PO TID 30 Days #90 tab 06/06/24 Sevelamer Carbonate [Renvela*] 3,200 mg PO TIDWM 30 Days #90 tablet 06/06/24 carvediloL [Coreg*] 25 mg PO BID 30 Days #60 tab 06/06/24 Zolpidem Tartrate [Ambien] 10 mg PO BEDTIME PRN PRN 09/01/24 Acetaminophen with Codeine [Acetaminophen-Cod #4 Tablet] 1 each PO Q1D 10/06/24 Lisinopril [Zestril] 20 mg PO BID 10/06/24 - Past Medical/Surgical History Diabetic: Yes -: End-stage renal disease on hemodialysis -: Hypertension -: Type 2 Diabetes -: Chronic IJ blood clot -: CHF -: Peritoneal dialysis port -: shoulder surgery -: left upper arm fistula -: Knee and shoulder surgery Psychosocial/ Personal History: Patient with 5 children. - Family History Father Medical History: Heart disease - Social History Smoking Status: Unknown if ever smoked Alcohol use: No CD- Drugs: No Caffeine use: Yes Place of Residence: Home Review of Systems is unable to be obtained Physical Examination Temp Pulse Resp BP Pulse Ox 98.6 F 70 20 129/60 100 10/06/24 14:20 10/06/24 17:50 10/06/24 17:00 10/06/24 17:00 10/06/24 17:50 General: Unresponsive Respiratory: Diminished Cardiovascular: No edema, Regular rate/rhythm Gastrointestinal: Normal bowel sounds, Soft and benign, Non-distended Musculoskeletal: No clubbing, No swelling Laboratory Data (last 24 hrs) 1210/06/24 10/06/24 06:45 05:35 05:35 WBC 7.10 Hgb 10.8 L Hct 33.7 L Plt Count 228 PT 11.5 INR 1.03 Sodium 133 L Potassium 4.4 BUN 33 H Creatinine 8.83 H Glucose 109 H Total Bilirubin 0.4 AST 137 H ALT 112 H Alkaline Phosphatase 103 - Problems (1) Respiratory failure with hypoxia and hypercapnia Current Visit: Yes Status: Acute Plan: Is 64 years of age admitted with respiratory failure his hypercapnic ARB is also elevated he also has renal failure on dialysis anemia of chronic disease normal white count chest x-ray some mild interstitial changes BNP is also elevated last echocardiogram done in July 2024 consistent with diastolic dysfunction patient is oxygenating well Vent settings reviewed peak pressures less than 30 PEEP of 5 FiO2 40% labs chest x-rays reviewed continue with present treatment add steroids nebulizers may have underlying obstructive airways disease abnormal LFTs patient's troponins are significantly elevated. Doubt sepsis DC Zosyn changed over to Rocephin COVID-19 positive test (U07.1, COVID-19) with Viral Sepsis (A41.89 other specified sepsis) Qualifiers: Chronicity: unspecified Qualified Code(s): J96.91 - Respiratory failure, unspecified with hypoxia; J96.92 - Respiratory failure, unspecified with hypercapnia (2) NSTEMI (non-ST elevated myocardial infarction) Current Visit: Yes Status: Acute Plan: Patient's troponins are elevated may all be related to underlying hypoxemia hypercapnia since troponin has increased later on in the evening apparently the history of GI bleed with tarry stools allergy has been consulted so has been GI he is in no further tarry stool since admission patient has had a decline in his H&H no obvious bleeding has been noted so far
--- NOTE | 2024-10-06 18:56 | RAD REPORT ---
EXAM: Chest Single View HISTORY: ett tube COMPARISON: Chest radiograph earlier in the day FINDINGS: LUNGS/PLEURA: Modestly improved lung volumes. Bilateral interstitial prominence is slightly improved. . MEDIASTINUM: The mediastinal silhouette is within normal limits. CARDIAC: The cardiac silhouette is within normal limits. UPPER ABDOMEN: No significant abnormality. BONES: No acute abnormality. LINES/TUBES/OTHER: Endotracheal tube at the lower margin of the clavicular heads in satisfactory posi tion. IMPRESSION: Endotracheal tube and suspected position above the sangita. Improved lung volumes compared with prior.
[2024-10-06] MEDS: ALBUTEROL 2.5 MG/3 ML NEB SOL IH SCH (19:00)
[2024-10-06 19:06] LABS: Hematocrit 30.5 % (39.6-49.0); Hemoglobin 9.6 g/dL (13.6-17.9)
[2024-10-06] MEDS: FENTANYL CITR 100 MCG/2 ML IV PRN (19:25)
[2024-10-06] MEDS: METHYLPREDNISOLONE 125 MG INJ IV SCH (19:28)
--- NOTE | 2024-10-06 19:28 | CON ---
Date of Consultation: 10/06/2024 Reason For Consultation: Elevated BUN and creatinine, acidosis, overvolume. History Of Present Illness: This is a pleasant 64-year-old gentleman. All the information has been obtained from the record as the patient obtunded, hypercapnic respiratory failure. The patient had history of hypertension, end- stage renal disease on hemodialysis, Monday, Monday, Monday. Last dialysis was Monday. Congestive heart failure, diabetes complicated with neuropathy and nephropathy. The patient poor compliant with dialysis. The patient's pain medication . The patient's last dialysis was Monday. The patient came to the hospital complaining from altered mental status and shortness of breath. Found to have hypercapnic respiratory failure and acidosis with decompensated. The patient was placed on BiPAP. Past Medical History: Includes: 1. Hypertension. 2. Diabetes complicated with neuropathy and nephropathy. 3. Congestive heart failure, diastolic dysfunction. 4. End-stage renal disease, on dialysis Monday, Monday, Monday. 5. Anemia of chronic kidney disease. Past Surgical History: Includes: 1. PD catheter placement and removal. 2. Shoulder surgery. 3. Left upper arm fistula. 4. Knee surgery. Home Medications: Includes Tylenol No. 4. Amlodipine. Hydralazine. Renvela. Ambien. Lisinopril. Family History: Positive for CAD and hypertension. Social History: Ex-smoker. Active alcohol. Denied drugs abuse. Review of Systems: None obtainable. Physical Examination: Vital Signs: When I saw the patient, blood pressure of 135/71, pulse of 74. The patient on BiPAP. Chest: Crackles, bilateral. Heart: S1, S2. Systolic murmur. Abdomen: Soft, nontender. Extremities: +2 edema. Neuro: The patient obtunded, on BiPAP. Laboratory Data: WBC 7.1, hemoglobin 10.8. Sodium 133, potassium 4.4, bicarb 26, BUN 33, creatinine 8.8, GFR of 6, calcium 8.5. Troponin 687. BNP 65,000. Current Medications: The patient on, it includes Zosyn, Zofran, hydralazine, pantoprazole. Assessment And Plan: 1. End-stage renal disease with overvolume. I am going to do daily dialysis for the patient and we will follow up the patient. 2. Possible overdose with Codeine. We will dialyze. We will consider antidote Narcan. 3. Hyponatremia, dilutional, will be corrected with dialysis. 4. Anemia of chronic kidney disease, questionable tarry stool. GI bleed. Continue PPI. We will hold heparin on dialysis. Resume HASEEB. 5. Coronary artery disease with congestive heart failure with non-ST elevation myocardial infarction with congestive heart failure exacerbation. We will optimize the fluid status for the patient and we will follow up with Cardiology. 6. Diabetes, as by Primary. Time spent examining the patient [id number], reviewing data, lab and radiology, placing order, discussing the case with the production team manager including hospitalist and nursing staff more than 75 minutes. RENAE Voice ID: [id number] Report ID: [id number]
[2024-10-06 19:51] LABS: Albumin 3.1 g/dL (3.4-5.0); Albumin/Globulin Ratio 1.1 (1.1-1.8); Anion Gap 14.4 mEq/L (5.0-15.0); Bilirubin Total 0.3 mg/dL (0.2-1.0); Globulin 2.7 g/dL (2.3-3.5); Potassium 4.4 mEq/L (3.5-5.1); Protein, Total 5.8 g/dL (6.4-8.2)
--- NOTE | 2024-10-06 21:53 | CON ---
Date of Consultation: 10/06/2024 Reason For Consultation: Elevated troponin. History Of Present Illness: 64-year-old male, history of end-stage renal disease, hypertension, dysl ipidemia, diastolic heart failure, diabetes, was very difficult to arouse at home. Family called 911 , and EMS gave Narcan. The patient was waking up slightly; however, he was found to be in acute hype rcapnic respiratory failure, with very high CO2 level, with lethargy. He was placed on BiPAP. Admit emerson to ICU. Troponin was elevated. Saw him by bedside and he is still lethargic, unable to answer a ny questions, and no family available to ask. Reported also by staff that he has been passing tarry black stool. Past Medical History: As outlined above in the HPI. Medications: Refer reconciliation sheet for detailed list. Allergies: NO KNOWN DRUG ALLERGIES. Family History: No premature coronary artery disease or cancer. Social History: He is an ex-smoker. Does not drink or use any drugs. Review of Systems: All systems reviewed and they were negative except as mentioned in the HPI. Physical Examination: Vital Signs: Reviewed. Head and Neck: Pupils are equal, reactive to light. Intact eye movements. No cervical lymphadenopa thy. Neck is supple. Thyroid is not enlarged. Lungs: There are rhonchi bilaterally with crackles at both bases, on BiPAP, slight increased respira tory efforts. Heart: Regular. No extra sounds. Abdomen: Soft, nontender. Bowel sounds positive. No organomegaly. Extremities: Edema bilaterally. No clubbing, cyanosis. Intact pulses. Skin: No rash noted. Neuro: Lethargic. Moving all extremities. Unable to investigate further due to mental status. Lymph Nodes: No cervical or axillary lymphadenopathy. Investigations: BUN 33, creatinine 8.3. His troponin initial was 687. NT-proBNP 65,000. Hemoglobi n 10.8. Assessment/recommendation: 1.Elevated troponin. The patient is with multiple risk factors. This could be representing a coron heydi artery disease. Please trend 2 more sets. Obtain an echo tomorrow. Once he is more alert and a wake, plan for coronary angiogram unless it was done in the recent past. Further history is to be ga thered once the patient is more awake. 2.Questionable gastrointestinal bleed with melena. Recommend to send stool for analysis and consult Surgery for esophagogastroduodenoscopy and colonoscopy if it confirms gastrointestinal bleed. I rec ommend to start him on PPI like Protonix. 3.End-stage renal disease, on hemodialysis, to continue. 4.Acute hypercapnic respiratory failure, resulting in lethargy, on BiPAP. Pulmonary is on board. 5.Pulmonary edema due to possible congestive heart failure plus end-stage renal disease. Obtain ech o in the morning. Further plan to follow. /BETTINA Voice ID: [id number] Report ID: [id number]
[2024-10-06] MEDS: EPOETIN ALFA 10,000 UNIT/ML VIAL IV SCH (22:15)
[2024-10-06] MEDS: Mupirocin NASAL 2 APPL/1 GM TUBE NAS SCH (23:09)
[2024-10-06] MEDS: ASPIRIN 300 MG/SUPP PR ONE (23:10)
[2024-10-06] MEDS: HYDRALAZINE HCL 20 MG/ML VIAL IV PRN (23:13)
--- NOTE | 2024-10-07 00:05 | CON ---
Date of Consultation: 10/06/2024 Reason For Consultation: GI bleed with possible melena. History Of Present Illness: This patient is a 64-year-old white male with history of diabetes; hyper tension; end-stage renal disease, on hemodialysis; congestive heart failure, presented to the [facility], found down unconscious with pinpoint pupils. The patient was given Narcan in suspicion of drug ov erdose. It appears the patient came to ICU, where he had a pH of 7.05, pO2 of 97, pCO2 of 172 with m arked hypercapnia on FiO2 100%. His troponin I was elevated at 687. He is on dialysis. It has been reported that he has had some melenic stools, by family, at home; however, his hemoglobin here at [facility] emergency room was 10.8 on admission. No report of blood thinners. No aspirin or ibuprofen. No b lood seen by family except for some possible black stools recently. Past Medical History: Significant for diabetes; hypertension; end-stage renal disease, on hemodialys is Monday, Monday, Monday; congestive heart failure; insomnia; left arm fistula; bilateral total k nee replacements; and right shoulder surgery. Allergies: NKDA. Medications: Home medications include amlodipine, Apresoline, Renvela, Coreg, Ambien, Tylenol No.4, lisinopril. Social History: He is a former smoker. No alcohol. No drugs. Currently lives at home. Family History: Father had heart disease, by chart review. Physical Examination: General: The patient is in ICU bed, on CPAP machine, restless, somewhat disoriented, delusional. No t able to respond to questioning; however, responsive to painful stimuli. Vital Signs: Temperature 98.6, pulse 72, respirations 20, blood pressure 129/60, O2 saturation 95% o n FiO2 of 35% to 45%. HEENT: He is on CPAP machine. Pupils equal, round, and reactive to light. Somewhat unable to see e xactly, thrashing around in bed. Neck: Supple. No masses. Respirations: Clear, anterior exam only, though somewhat distant with decreased breath sounds. Cardiac: Regular rhythm. Abdomen: Positive bowel sounds. Soft, nontender, nondistended. No hepatosplenomegaly. Extremities: Mild clubbing. No cyanosis. No edema currently. Neuro: Confused, writhing in bed, unable to answer questions. Responses in painful stimuli. Able t o move all extremities well. Laboratory Data: The patient had an ABG of pH of 7.05 on admission, pCO2 of 97.4, pO2 of 172, bicarb 26 on FiO2 100%. ABG was 7.14, pCO2 of 77 on FiO2 45. The patient had repeat ABG now. His CO2 is back up into the 90s as per verbal report. The patient appears to be tiring on CPAP machine, may nee d intubation. Otherwise, laboratories remarkable for white count of 7.1, hemoglobin 10.8, hematocrit 33.7, MCV of 90.5, platelet count 228, polys 88%, lymphocytes 4%, monocytes 7%, eosinophils 1%. PT of 11.5, INR of 1.03. The patient has a sodium 133, potassium 4.4, chloride 99, bicarb 26, BUN of 33 , creatinine of 8.83, glucose 109, calcium 8.5. Total bilirubin 0.4, direct bilirubin 0.2, indirect bilirubin 0.2. AST of 137, ALT of 112, alkaline phosphatase 103. Troponin I of 687. B type natriur etic peptide elevated at 65,591. Total protein 6.9, albumin 3.6. Toxicology is pending at this time . Serologies negative. CT abdomen and pelvis, impression: No acute abnormalities, but evaluation l imited due to lack of IV contrast. Chest x-ray is consistent with pulmonary edema. Impression: 1.Possible melena, now anemia. Hemoglobin down to 10.8 with MCV of 90.5. The patient has more pres sing issues, however. 2.Acute respiratory failure, acute pulmonary edema with hypercapnia with pCO2 of 97.4, and a repeat of 77, repeat after that backed up to the 90s. The patient has acute respiratory failure, failing CP AP therapy in ICU and probably need to be intubated. 3.Elevated troponin I of 687. B-natriuretic peptide elevated at 65,591. Cardiology should be consu lted. 4.History of diabetes; hypertension; end-stage renal disease, on hemodialysis; congestive heart fail ure; insomnia; bilateral total knee replacements; right shoulder surgery; and left arm fistula. Recommendations: 1.Continue PPI therapy. 2.Gentle IV fluids since patient resuscitate with severe congestive heart failure, with possible cor onary artery disease, with elevated troponin I in the setting of renal failure, however. Please chec k serial H and H, and transfuse p.r.n. 3.EGD when stable. 4.Agree with Cardiology and Pulmonology consultations. ALINA Voice ID: [id number] Report ID: [id number]
[2024-10-07] MEDS: ALBUTEROL 2.5 MG/3 ML NEB SOL ONE ×2 (01:27→21:33)
[2024-10-07 05:37] LABS: Absolute Lymphocytes (CBC) 0.1 K/uL (0.7-4.9); Absolute Monocytes 0.1 K/uL (0.1-1.3); Absolute Neutrophil 7.9 K/uL (1.8-8.0); Hematocrit 30.6 % (39.6-49.0); Lymphocytes % 1.6 % (15.3-44.8); MCH 29.1 pg (27.0-35.0); MCHC 32.8 g/dL (32.0-36.0); MCV 88.7 fL (80-100); MPV 7.8 fL (7.6-11.3); Monocytes % 1.6 % (3.3-12.3); Neutrophils % 96.8 % (41.7-73.7); Nucleated Red Blood Cells % 0.1 % (0-0); Platelets 167 thou/uL (152-406); RBC Red Blood Cell Count 3.45 M/uL (4.33-5.43); Red Cell Distribution Width 16.1 % (12.1-15.2)
[2024-10-07 06:16] LABS: Albumin 3.1 g/dL (3.4-5.0); Albumin/Globulin Ratio 1.1 (1.1-1.8); Anion Gap 18.3 mEq/L (5.0-15.0); Bilirubin Total 0.4 mg/dL (0.2-1.0); Globulin 2.9 g/dL (2.3-3.5); Magnesium 2.2 mg/dL (1.6-2.4); Phosphorus 6.9 mg/dL (2.5-4.9); Potassium 4.3 mEq/L (3.5-5.1)
[2024-10-07 06:19] LABS: Troponin High Sensitivity 3675.3 pg/mL (<58.9)
[2024-10-07] MEDS: DEXMEDETOMIDINE HCL 1,000 MCG in NA CHLORIDE 0.9% 490 ML IV SCH (08:06)
[2024-10-07] MEDS: CEFTRIAXONE 1,000 MG in NA CHLORIDE 0.9% 50 ML IVPB SCH (08:07)
[2024-10-07] MEDS ORDERED: SUCCINYLCHOLINE 20 MG/ML (10 ML) IV ONE (09:33)
[2024-10-07] MEDS ORDERED: ROCURONIUM 50 MG/5 ML VIAL IV ONE (09:33)
[2024-10-07 09:35] LABS: Anisocytosis 1+; Blood Morphology Comment NOTED (NOT SEEN); Ovalocytes SLIGHT; Platelet Estimate ADEQ; White Blood Cell Scan OK (OK)
--- NOTE | 2024-10-07 10:20 | P.PN ---
Subjective Date of Service: 10/07/24 Chief Complaint: Acute hypoxic hypercarbic respiratory failure Subjective: No new changes Review of Systems is unable to be obtained (Patient is intubated) Physical Examination - Vital Signs Temperature: 98.6 F Blood Pressure: 179/77 Pulse: 72 Respirations: 18 Pulse Ox (%): 100 - Physical Exam General: In no apparent distress, Other (sedated) HEENT: Atraumatic, PERRLA, EOMI Neck: Supple, JVD not distended Respiratory: Clear to auscultation bilaterally, Normal air movement Cardiovascular: Regular rate/rhythm, Normal S1 S2 Gastrointestinal: Normal bowel sounds, No tenderness Musculoskeletal: No tenderness Integumentary: No rashes Neurological: Normal speech, Normal tone, Normal affect Lymphatics: No axilla or inguinal lymphadenopathy - Studies Medications List Reviewed: Yes Assessment And Plan - Current Problems (Diagnosis) (1) Decompensated heart failure Current Visit: Yes Status: Acute Plan: continue to adjust volume through dialysis. get Echo recommend starting coreg 25 mg po BID Lisinopril 20 mg BID (2) NSTEMI (non-ST elevated myocardial infarction) Current Visit: Yes Status: Acute Plan: Patient troponin keep trending up. keep trending until peak then down trending would recommend starting patient on Heparin drip ACS protocol if ok with GI and continue to monitor Hg ASA 81 mg daily Lipitor 40 mg daily (3) HTN (hypertension) Current Visit: No Status: Chronic Plan: if patient got NG tube then recommend resuming his home medications Qualifiers: Hypertension type: primary hypertension Qualified Code(s): I10 - Essential (primary) hypertension
--- NOTE | 2024-10-07 11:11 | EKG ---
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
--- NOTE | 2024-10-07 12:11 | P.PN ---
Subjective Date of Service: 10/07/24 Chief Complaint: Acute hypoxic hypercarbic respiratory failure Subjective: No new changes Patient is sedated and intubated on mechanical ventilator, the nurse at bedside report patient underwent hemodialysis yesterday and removed 3 L, his blood pressure is mildly elevated but reasonably controlled, heart rate at target. Review of Systems is unable to be obtained Physical Examination - Vital Signs Temperature: 98.6 F Blood Pressure: 162/96 Pulse: 72 Respirations: 18 Pulse Ox (%): 100 - Physical Exam Other Physical/Emotional Findings: - Physical Exam. General: Obese, not acutely ill looking, in no apparent distress,. HEENT: Normocephalic, atraumatic, nonicteric sclera, nonanemic conjunctive. Neck: Supple, without JVD or goiter or thyroid mass. Respiratory: Normal breathing effort, clear to auscultation bilaterally, no crackles no wheezing or rhonchi. Cardiovascular: Regular rate and rhythm, S1, S2 normal, no murmur no gallop. Gastrointestinal: Normal bowel sounds, nondistended, nontender, No ascites, , No masses, no hepatosplenomegaly. Extremities : No clubbing, No peripheral edema, AV fistula in right arm. Integumentary: No rashes, petechia, suspected lesions. Lymphatics: No axilla or cervical lymphadenopathy. Neurology; alert awake oriented x3, no focal neurologic deficit, normal affection . mood and behavior. - Studies Medications List Reviewed: Yes Assessment And Plan - Plan 64-year-old male with history with history of hypertension, ESRD on HD, chronic diastolic congestive heart failure, diabetes presents the emergency department via EMS after being found difficult to arouse at home. #1 acute hypoxic hypercapnic respiratory failure Failed BiPAP, intubated on mechanical ventilator on October 06 ABG reviewed, pH 7.1, pCO2 down to 77 mmHg, UDS pending, comanaging with crotch piece baster Seems to be improving after ultrafiltration 3 L, anticipating extubation in couple of days #2 pulmonary edema and underlying ESRD on hemodialysis Chest x-ray on admission personally reviewed pulmonary edema, will continue inpatient hemodialysis with ultrafiltration as much as possible #2 possible acute exacerbation of COPD Will continue methylprednisolone, empiric antibiotic with ceftriaxone per pulmonary recommendation #4 hypoglycemic episode in the history of type 2 diabetes On hypoglycemic protocol, hemoglobin A1c 4.4 in July 2024, or his diabetic medication on hold #5 normocytic anemia with concern for overt GI bleeding Patient records suggestive of melena, GI consulted, fecal occult blood test is not available at this facility, hemoglobin stable 10, no clinical bleeding at the moment, no transfusion indicated, iron study reviewed, no sign of iron deficiency anemia, I will order hemolytic workup #6 elevated troponin likely type II [place] Troponin was trending up and then plateaued, likely due to hypoxia and hypercapnia, current indication to parenteral anticoagulation for #5 DVT prophylaxis sequential compression device Stress ulcer prophylaxis pantoprazole Disposition; patient remain in intubated on mechanical and ventilator, continues ICU care
[2024-10-07 13:14] LABS: Percent Reticulocyte Count 0.78 % (0.4-2.05); RBC Red Blood Cell Count 3.73 M/uL (4.33-5.43)
[2024-10-07 14:55] LABS: Arterial Blood Carboxyhemoglob 0.8 % (0-1.5); Blood Gas Oxyhemoglobin 95.5 % (94-97); Blood O2 Saturation 98.3 % (92-98.5)
[2024-10-07 14:56] LABS: Blood Gas THB 11.7 g/dl (12-18)
--- NOTE | 2024-10-07 21:12 | P.PN ---
Subjective Date of Service: 10/07/24 Chief Complaint: Acute hypoxic hypercarbic respiratory failure Condition is stable however he is on propofol and Precedex condition remained stable hemodynamically stable recent dialysis today no evidence of bleeding Review of Systems is unable to be obtained Physical Examination - Vital Signs Temperature: 98.4 F Blood Pressure: 182/78 Pulse: 70 Respirations: 18 Pulse Ox (%): 100 - Physical Exam General: Unresponsive Cardiovascular: No edema, Regular rate/rhythm, Normal S1 S2 Gastrointestinal: Normal bowel sounds, Soft and benign Other Physical/Emotional Findings: - Physical Exam. General: Obese, not acutely ill looking, in no apparent distress,. HEENT: Normocephalic, atraumatic, nonicteric sclera, nonanemic conjunctive. Neck: Supple, without JVD or goiter or thyroid mass. Respiratory: Normal breathing effort, clear to auscultation bilaterally, no crackles no wheezing or rhonchi. Cardiovascular: Regular rate and rhythm, S1, S2 normal, no murmur no gallop. Gastrointestinal: Normal bowel sounds, nondistended, nontender, No ascites, , No masses, no hepatosplenomegaly. Extremities : No clubbing, No peripheral edema, AV fistula in right arm. Integumentary: No rashes, petechia, suspected lesions. Lymphatics: No axilla or cervical lymphadenopathy. Neurology; alert awake oriented x3, no focal neurologic deficit, normal affection . mood and behavior. - Studies Medications List Reviewed: Yes Assessment And Plan - Current Problems (Diagnosis) (1) Respiratory failure with hypoxia and hypercapnia Current Visit: Yes Status: Acute Plan: Patient admitted with hypoxic hypercapnic respiratory failure condition is stable oxygenation satisfactory vent settings reviewed gases are also satisfactory hemodynamically stable and to wean and extubate tomorrow and has had dialysis today patient's white count is normal pressure elevated start on amlodipine and Coreg x-ray clear endotracheal tube satisfactory vent settings reviewed Qualifiers: Chronicity: unspecified Qualified Code(s): J96.91 - Respiratory failure, unspecified with hypoxia; J96.92 - Respiratory failure, unspecified with hypercapnia (2) NSTEMI (non-ST elevated myocardial infarction) Current Visit: Yes Status: Acute Plan: Non-STEMI anticoagulation contraindicated due to history of GI bleeding troponins have stabilized no echocardiogram seen by cardiology
--- NOTE | 2024-10-07 22:30 | RAD REPORT ---
EXAM: AP view(s) of the abdomen Abdomen 1 View (KUB) HISTORY: verify OGT placement COMPARISON: None FINDINGS: Relatively gasless abdomen. Enteric tube tip overlies the stomach in satisfactory position. Other: n/a IMPRESSION: Enteric tube coils in the stomach in satisfactory position.
[2024-10-08] MEDS: carvediloL 12.5 MG TAB PO SCH (00:15)
[2024-10-08] MEDS: AMLODIPINE 10 MG TAB PO SCH (00:16)
--- NOTE | 2024-10-08 00:32 | PN ---
Date of Progress Note: 10/07/2024 Chief Complaint: Elevated BUN and creatinine levels, end-stage renal disease, acidosis with overload . Subjective: The patient is a 64-year-old man with history of end-stage renal disease, hypertensive h eart and kidney disease. He is undergoing dialysis 3 times per week on Monday, Monday, Monday. T he patient was found to have fluid overload, congestive heart failure exacerbation. The patient has poor compliance with dialysis schedule and p.o. fluid restriction. The patient states con sulted and was placed on BiPAP. Review of Systems: Unobtainable. The patient is lethargic. Past Medical History: Hypertension; diabetes mellitus, complicated with neuropathy/nephropathy; arianna estive heart failure, diastolic dysfunction; anemia of chronic disease. Physical Examination: Lungs: Few rhonchi. Heart: S1, S2. Abdomen: Soft, benign. Extremities: Edema present. Impression And Plan: 1.End-stage renal disease and fluid overload. He is treated with dialysis. The patient is undergoi ng dialysis today. Monitor electrolytes closely. 2.Hyponatremia due to volume overload. Continue to monitor I's and O's. Continue dialysis. Advanc e ultrafiltration with dialysis to control volume overload. 3.Coronary artery disease with congestive heart failure with [id number] myocardial infarction, with congestive heart failure exacerbation. Continue dialysis to treat fluid overload. The patient is anuric and diuretic will not be used. 4.Chronic pain. The patient currently denies pain and the patient was treated with Narcan for possible pain medication overdose. Further recommendation per Primary te amVera SENIOR/BETTINA Voice ID: [id number] Report ID: [id number]
[2024-10-08 06:11] LABS: Absolute Lymphocytes (CBC) 0.2 K/uL (0.7-4.9); Absolute Monocytes 0.2 K/uL (0.1-1.3); Absolute Neutrophil 5.7 K/uL (1.8-8.0); Hematocrit 32.6 % (39.6-49.0); Hemoglobin 10.8 g/dL (13.6-17.9); Lymphocytes % 2.6 % (15.3-44.8); MCHC 33.3 g/dL (32.0-36.0); MCV 87.2 fL (80-100); MPV 7.8 fL (7.6-11.3); Monocytes % 3.5 % (3.3-12.3); Neutrophils % 93.9 % (41.7-73.7); Nucleated Red Blood Cells % 0.2 % (0-0); Platelets 196 thou/uL (152-406); RBC Red Blood Cell Count 3.74 M/uL (4.33-5.43); Red Cell Distribution Width 16.4 % (12.1-15.2)
[2024-10-08 06:32] LABS: Albumin 3.1 g/dL (3.4-5.0); Anion Gap 17.1 mEq/L (5.0-15.0); Bilirubin Total 0.4 mg/dL (0.2-1.0); Globulin 3.2 g/dL (2.3-3.5); Magnesium 2.4 mg/dL (1.6-2.4); Phosphorus 6.8 mg/dL (2.5-4.9); Potassium 4.1 mEq/L (3.5-5.1); Protein, Total 6.3 g/dL (6.4-8.2)
[2024-10-08 06:33] LABS: Troponin High Sensitivity 2114.5 pg/mL (<58.9)
[2024-10-08] MEDS: METHYLPREDNISOLONE 40 MG INJ IV SCH (08:26)
[2024-10-08] MEDS: LORazepam 2 MG/ML VIAL IV PRN (09:53)
--- NOTE | 2024-10-08 10:06 | P.PN ---
Subjective Date of Service: 10/08/24 Chief Complaint: Acute hypoxic hypercarbic respiratory failure Subjective: No new changes Patient remained sedated and intubated on mechanical ventilator, the nurse at bedside report no events overnight, planning to extubate after hemodialysis today, tapering off propofol and fentanyl. Patient underwent hemodialysis yesterday again and removed 3 L, Review of Systems is unable to be obtained Physical Examination - Vital Signs Temperature: 98.1 F Blood Pressure: 162/72 Pulse: 61 Respirations: 18 Pulse Ox (%): 99 - Physical Exam Other Physical/Emotional Findings: - Physical Exam. General: Obese, not acutely ill looking, in no apparent distress,. HEENT: Normocephalic, atraumatic, nonicteric sclera, nonanemic conjunctive, endotracheal tube. Neck: Supple, without JVD or goiter or thyroid mass. Respiratory: Normal breathing effort, clear to auscultation bilaterally, no crackles no wheezing or rhonchi. Cardiovascular: Regular rate and rhythm, S1, S2 normal, no murmur no gallop. Gastrointestinal: Normal bowel sounds, nondistended, nontender, No ascites, , No masses, no hepatosplenomegaly. Extremities : No clubbing, No peripheral edema, AV fistula in right arm. Integumentary: No rashes, petechia, suspected lesions. Lymphatics: No axilla or cervical lymphadenopathy. Neurology; sedated, intubated, no focal neurologic deficit, - Studies Medications List Reviewed: Yes Assessment And Plan - Plan This is a 64-year-old male with history with history of hypertension, ESRD on HD, chronic diastolic congestive heart failure, diabetes presents the emergency department via EMS after being found difficult to arouse at home. #1 acute hypoxic hypercapnic respiratory failure Failed BiPAP, intubated on mechanical ventilator on October 06 Repeat ABG yesterday afternoon reviewed, pH 7.36, pCO2 down to 40 mmHg, UDS pending, comanaging with superintendent measurement Seems to be improving after ultrafiltration 3 L, I think patient is ready to to be extubated today, will do spontaneous breathing trial and extubation after hemodialysis today #2 pulmonary edema in underlying ESRD on hemodialysis Chest x-ray on admission pulmonary edema, will continue inpatient hemodialysis with ultrafiltration as much as possible, he is scheduled for another hemodialysis today. #3 possible acute exacerbation of COPD Will continue methylprednisolone, empiric antibiotic with ceftriaxone per pulmonary recommendation #4 hypoglycemic episode in the history of type 2 diabetes Random blood sugar over 100 on hypoglycemic protocol, hemoglobin A1c 4.4, elevated C-peptide in July 2024, his diabetic medication on hold #5 anemia with CKD with concern for overt GI bleeding Patient records suggestive of melena, GI consulted, fecal occult blood test is not available at this facility, hemoglobin stable 10, no clinical bleeding at the moment, no transfusion indicated, iron study reviewed, no sign of iron deficiency anemia, haptoglobin pending, LDH mildly elevated, reticulocyte index 0.4, indicator of hypoproliferative, clinically consistent with anemia of the CKD, will continue erythropoietin stimulating agent #6 elevated troponin likely type II [place] Troponin was trending up and then plateaued, likely due to hypoxia and hypercapnia, contraindicated to parenteral anticoagulation for #5 DVT prophylaxis sequential compression device Stress ulcer prophylaxis pantoprazole Disposition; if extubation successful today possible downgrade in a couple of days
--- NOTE | 2024-10-08 10:51 | P.PN ---
Subjective Date of Service: 10/08/24 Chief Complaint: Acute hypoxic hypercarbic respiratory failure Subjective: No new changes Review of Systems is unable to be obtained (intubated) Physical Examination - Vital Signs Temperature: 98.1 F Blood Pressure: 162/72 Pulse: 61 Respirations: 18 Pulse Ox (%): 99 - Physical Exam General: In no apparent distress, Other (intubated) HEENT: Atraumatic, PERRLA, EOMI Neck: Supple, JVD not distended Respiratory: Clear to auscultation bilaterally, Normal air movement Cardiovascular: Regular rate/rhythm, Normal S1 S2 Gastrointestinal: Normal bowel sounds, No tenderness Musculoskeletal: No tenderness Integumentary: No rashes Neurological: Normal speech, Normal tone, Normal affect Lymphatics: No axilla or inguinal lymphadenopathy Other Physical/Emotional Findings: - Physical Exam. General: Obese, not acutely ill looking, in no apparent distress,. HEENT: Normocephalic, atraumatic, nonicteric sclera, nonanemic conjunctive, endotracheal tube. Neck: Supple, without JVD or goiter or thyroid mass. Respiratory: Normal breathing effort, clear to auscultation bilaterally, no crackles no wheezing or rhonchi. Cardiovascular: Regular rate and rhythm, S1, S2 normal, no murmur no gallop. Gastrointestinal: Normal bowel sounds, nondistended, nontender, No ascites, , No masses, no hepatosplenomegaly. Extremities : No clubbing, No peripheral edema, AV fistula in right arm. Integumentary: No rashes, petechia, suspected lesions. Lymphatics: No axilla or cervical lymphadenopathy. Neurology; sedated, intubated, no focal neurologic deficit, - Studies Medications List Reviewed: Yes Assessment And Plan - Current Problems (Diagnosis) (1) Decompensated heart failure Current Visit: Yes Status: Acute Plan: continue to adjust volume through dialysis. get Echo coreg 25 mg po BID Lisinopril 20 mg BID (2) NSTEMI (non-ST elevated myocardial infarction) Current Visit: Yes Status: Acute Plan: Patient troponin trended up and now down trending would recommend starting patient on Heparin drip ACS protocol if ok with GI and continue to monitor Hg ASA 81 mg daily Lipitor 40 mg daily (3) HTN (hypertension) Current Visit: No Status: Chronic Plan: if patient got NG tube then recommend resuming his home medications Qualifiers: Hypertension type: primary hypertension Qualified Code(s): I10 - Essential (primary) hypertension
[2024-10-08] MEDS: EPOETIN ALFA 10,000 UNIT/ML VIAL IV SCH (11:29)
--- NOTE | 2024-10-08 12:35 | PN ---
Date of Progress Note: 10/08/2024 Subjective: The patient was admitted with overvolume, congestive heart failure with exacerbation. The patient has been dialyzed daily with ultrafiltration around 3-4 L. The patient is poor compliant. Patient's blood pressure had been stable. Patient seen on dialysis today. Objective: Vital Signs: Blood pressure 134/65, pulse of 88. Chest: Crackles, bilateral. Heart: S1, S2. Systolic murmur. Abdomen: Soft, nontender. Extremities: Trace edema. Neuro: Patient on vent, sedated. Laboratory Data: For the patient, hemoglobin 10.8, sodium 132, potassium 4.1, bicarb 21, BUN 53, creatinine 8.5, calcium 8.6, phosphorus 6.8. BNP 2100. Current Medications: The patient on, it includes: 1. Epogen. 2. Ceftriaxone. 3. Carvedilol 12.5. 4. Amlodipine. 5. Lorazepam. Assessment And Plan: 1. End-stage renal disease with overvolume. Plan for extubation today. We will arrange for another session of dialysis tomorrow with sequential and we will follow up the patient. 2. Hypertension. We will utilize blood pressure for more ultrafiltration. Discontinue amlodipine. 3. Secondary hyperparathyroidism, stable. Phosphorus trending down. The patient on vent. We will resume Renvela. 4. Anemia of chronic kidney disease. Continue HASEEB. 5. Chronic obstructive pulmonary disease exacerbation, as above. Time spent examining the patient [id number] reviewing data lab and radiology placing order discussing the case with the patient / family by bedside discussing the case with the nut steamer including hospitalist and nursing staff more than 55-minute RENAE Voice ID: [id number] Report ID: [id number] MARY
[2024-10-08] MEDS ORDERED: GLUCAGON 1 MG/VIAL IM PRN ×2 (15:09→16:03)
[2024-10-08] MEDS ORDERED: D10W 125 ML IV PRN ×2 (15:09→16:03)
[2024-10-08] MEDS: INSULIN REGULAR (HUMAN) 100 UNIT/ML SQ SCH (16:03)
[2024-10-08] MEDS: SEVELAMER CARBONATE 800 MG TABLET PO SCH (16:31)
[2024-10-08] MEDS: HYDRALAZINE HCL 25 MG TABLET PO SCH (20:24)
[2024-10-08] MEDS: lisinopriL 20 MG TAB PO SCH (20:27)
[2024-10-08] MEDS: carvediloL 25 MG TAB PO SCH (20:27)
[2024-10-08] MEDS: ZOLPIDEM TARTRATE 10 MG TABLET PO PRN (21:56)
[2024-10-08] MEDS: GUAIFENESIN/DM 5 ML UCUP PO PRN (22:50)
[2024-10-09] MEDS: CHLORASEPTIC LOZENGES PO SCH
[2024-10-09] MEDS ORDERED: CHLORASEPTIC LOZENGES PO PRN (00:32)
[2024-10-09 05:07] LABS: Absolute Lymphocytes (CBC) 0.3 K/uL (0.7-4.9); Absolute Monocytes 0.7 K/uL (0.1-1.3); Absolute Neutrophil 9.5 K/uL (1.8-8.0); Basophils % 0.3 % (0-1.3); Hematocrit 30.2 % (39.6-49.0); Lymphocytes % 2.6 % (15.3-44.8); MCH 29.1 pg (27.0-35.0); MCHC 33.2 g/dL (32.0-36.0); MCV 87.7 fL (80-100); MPV 7.6 fL (7.6-11.3); Monocytes % 6.3 % (3.3-12.3); Nucleated Red Blood Cells % 0.2 % (0-0); Platelets 208 thou/uL (152-406); RBC Red Blood Cell Count 3.45 M/uL (4.33-5.43); Red Cell Distribution Width 16.6 % (12.1-15.2)
[2024-10-09 05:09] LABS: Neutrophils % 90.8 % (41.7-73.7)
[2024-10-09 05:50] LABS: Albumin 2.9 g/dL (3.4-5.0); Bilirubin Total 0.4 mg/dL (0.2-1.0); Globulin 2.9 g/dL (2.3-3.5); Magnesium 2.4 mg/dL (1.6-2.4); Phosphorus 4.9 mg/dL (2.5-4.9); Protein, Total 5.8 g/dL (6.4-8.2)
--- NOTE | 2024-10-09 09:06 | RAD REPORT ---
EXAMINATION: ONE VIEW CHEST XR CLINICAL INDICATION: Postextubation, follow-up on pulmonary edema TECHNIQUE: Frontal chest projection is submitted. Examination is limited by patient positioning and t echnique. COMPARISON: 10/06/2024 FINDINGS: Minimal pulmonary edema persists. The heart is mildly prominent in size. No displaced fractures ident ified. Endotracheal tube has been removed.
--- NOTE | 2024-10-09 10:47 | P.PN ---
Subjective Date of Service: 10/09/24 Chief Complaint: Acute hypoxic hypercarbic respiratory failure Subjective: Improving He was successfully extubated after hemodialysis yesterday afternoon, remained stable on nasal cannula overnight. He has no complaint. He states that he has a diagnosis of obstructive sleep apnea but intolerant of BiPAP or CPAP, patient stated patient did not smoke or no diagnosis of COPD, no use of recreational drug. He missed a couple of hemodialysis session before he lost consciousness and stopped bleeding at home Review of Systems Other: Consitutional; fever(-), chills (-), rigor(-), night sweat(-), unintentional we ight loss(-), malaise (-) HEENT; diplopia (-), rhinorrhea (-), epistaxis (-), otorrhea (-), otalgia (-) Respiratory; shortness of breath (-), wheezing (-), cough (-), sputum (-), pleuritic chest pain (-) Cardiovascular; chest pain (-), peripheral edema (-), paroxysmal nocturnal dyspnea (-), orthopnea (-) Gastrointestinal; nausea (-), vomiting (-), abdominal pain (-), diarrhea (-), constipation (-), melena (-), hematochezia (-) Genitourinary; urinary frequency (-), dysuria (-), urgency (-), flank pain (-), gross hematuria (-), incontinence (-) Skin; rash (-), pruritus (-) 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 General: Obese, not acutely ill looking, in no apparent distress,. HEENT: Normocephalic, atraumatic, nonicteric sclera, nonanemic conjunctive,. Neck: Supple, without JVD or goiter or thyroid mass. Respiratory: Normal breathing effort, clear to auscultation bilaterally, no crackles no wheezing or rhonchi. Cardiovascular: Regular rate and rhythm, S1, S2 normal, no murmur no gallop. Gastrointestinal: Normal bowel sounds, nondistended, nontender, No ascites, , No masses, no hepatosplenomegaly. Extremities : No clubbing, No peripheral edema, AV fistula in right arm. Integumentary: No rashes, petechia, suspected lesions. Lymphatics: No axilla or cervical lymphadenopathy. Neurology; alert, awake oriented x 3 no focal neurologic deficit, - Studies Medications List Reviewed: Yes Assessment And Plan - Plan This is a 64-year-old male with history with history of hypertension, ESRD on HD, chronic diastolic congestive heart failure, diabetes, obstructive sleep apnea intolerant of noninvasive breathing treatment, ex-smoker presents the emergency department via EMS after being found difficult to arouse at home. #1 acute hypoxic hypercapnic respiratory failure due to #2 and #3 Failed BiPAP, intubated on mechanical ventilator on October 06, successfully weaned off ventilator and extubated on October 08 Repeat ABG , pH 7.36, pCO2 down to 40 mmHg, UDS pending, comanaging with global program manager Seems to be improving after ultrafiltration 3 L, #2 pulmonary edema secondary to missed hemodialysis in underlying ESRD on hemodialysis Chest x-ray on admission pulmonary edema, Significant improvement after daily hemodialysis with ultrafiltration of over 6 L follow-up chest x-ray ordered and personally reviewed today, resolution of pulmonary edema, no parenchymal lung disease. #3 Acute exacerbation of COPD improving, treatment plan discussed with global program manager, Dr. Collins I will taper off methylprednisolone 40 mg once a day and stop ceftriaxone #4 hypoglycemic episode in the history of type 2 diabetes Random blood sugar over 100 on hypoglycemic protocol, hemoglobin A1c 4.4, elevated C-peptide in July 2024, his diabetic medication on hold Good glycemic control on low-dose insulin sliding scale #5 anemia with CKD with questionable GI bleeding No clinical bleeding during hospitalization, GI consulted, endoscopy considered fecal occult blood test is not available at this facility, hemoglobin stable 10 without transfusion, no clinical bleeding at the moment, no transfusion indicated, iron study reviewed, no sign of iron deficiency anemia, haptoglobin pending, LDH mildly elevated, reticulocyte index 0.4, indicator of hypoproliferative, clinically consistent with anemia of the CKD, will continue erythropoietin stimulating agent #6 elevated troponin likely type II [place] Troponin was trending up and then plateaued, likely due to hypoxia and hypercapnia, contraindicated to parenteral anticoagulation for #5 Cardiology planning on coronary angiogram #7 renal hypertension Blood pressure reasonably controlled on carvedilol and lisinopril, I will continue at the current dose and titrate up as needed DVT prophylaxis sequential compression device Stress ulcer prophylaxis pantoprazole Disposition; will downgrade the patient to general medical floor today after taper him off Precedex
[2024-10-09 15:20] VITALS: BMI 31.3
[2024-10-09] MEDS ORDERED: CODEINE 30MG/APAP 300MG TAB PO PRN (21:38)
[2024-10-09] MEDS: CODEINE 30MG/APAP 300MG TAB PO PRN (21:59)
[2024-10-10 07:10] LABS: Absolute Eosinophils 0.1 K/uL (0-0.5); Absolute Lymphocytes (CBC) 0.7 K/uL (0.7-4.9); Absolute Neutrophil 6.6 K/uL (1.8-8.0); Basophils % 0.1 % (0-1.3); Eosinophils % 0.6 % (0-4.4); Hematocrit 31.6 % (39.6-49.0); Hemoglobin 10.5 g/dL (13.6-17.9); Lymphocytes % 8.8 % (15.3-44.8); MCH 29.1 pg (27.0-35.0); MCHC 33.1 g/dL (32.0-36.0); MCV 87.9 fL (80-100); MPV 7.6 fL (7.6-11.3); Monocytes % 12.1 % (3.3-12.3); Neutrophils % 78.4 % (41.7-73.7); Nucleated RBC Absolute Count 0.1 (0-0); Nucleated Red Blood Cells % 0.8 % (0-0); Platelets 236 thou/uL (152-406); RBC Red Blood Cell Count 3.59 M/uL (4.33-5.43); Red Cell Distribution Width 16.2 % (12.1-15.2)
[2024-10-10] MEDS ORDERED: propofoL 200 MG/20 ML VIAL IV ONE (07:12)
[2024-10-10] MEDS ORDERED: LIDOCAINE 1% MPF 5 ML VIAL ONE (07:12)
[2024-10-10] MEDS: NA CHLORIDE 0.9% 500 ML ONE (07:20)
[2024-10-10 07:34] LABS: Albumin 2.9 g/dL (3.4-5.0); Anion Gap 12.3 mEq/L (5.0-15.0); Bilirubin Total 0.5 mg/dL (0.2-1.0); Globulin 2.9 g/dL (2.3-3.5); Magnesium 2.2 mg/dL (1.6-2.4); Phosphorus 3.5 mg/dL (2.5-4.9); Potassium 3.3 mEq/L (3.5-5.1); Protein, Total 5.8 g/dL (6.4-8.2)
[2024-10-10] MEDS: SUCCINYLCHOLINE 20 MG/ML (10 ML) IV ONE (07:34)
[2024-10-10] MEDS: SUGAMMADEX SODIUM 200 MG/2 ML VIAL IV ONE (07:35)
[2024-10-10 08:14] LABS: Differential Total Cells Count 100
[2024-10-10 08:15] LABS: Atypical Lymphocytes 1 %; Band Neutrophils 1 % (0-1); Blood Morphology Comment NOTED (NOT SEEN); Eosinophils 2 % (0-3); Lymphocytes 8 % (15-42); Metamyelocytes 1 % (0-0); Monocytes 11 % (0-10); Nucleated Red Blood Cells 2 /100WBC; Platelet Estimate ADEQ; Polychromasia 1+; Segmented Neutrophils 76 % (40-80)
[2024-10-10] MEDS: EPINEPHRINE 1 MG/ML VIAL ONE (08:20)
[2024-10-10 08:50] VITALS: O2SAT 96
[2024-10-10] MEDS: METHYLPREDNISOLONE 40 MG INJ IV SCH (09:45)
--- NOTE | 2024-10-10 10:45 | P.PN ---
Subjective Date of Service: 10/10/24 Chief Complaint: Acute hypoxic hypercarbic respiratory failure Subjective: No new changes, No C/O voiced, Tolerating diet, Ambulating, Improving Review of Systems 10-point ROS is otherwise unremarkable Physical Examination - Vital Signs Temperature: 98.2 F Blood Pressure: 173/74 Pulse: 72 Respirations: 16 Pulse Ox (%): 93 - Physical Exam General: Alert, In no apparent distress HEENT: Atraumatic, PERRLA, EOMI Neck: Supple, JVD not distended Respiratory: Clear to auscultation bilaterally, Normal air movement Cardiovascular: Regular rate/rhythm, Normal S1 S2 Gastrointestinal: Normal bowel sounds, No tenderness Musculoskeletal: No tenderness Integumentary: No rashes Neurological: Normal speech, Normal tone, Normal affect Lymphatics: No axilla or inguinal lymphadenopathy Other Physical/Emotional Findings: - Physical Exam. General: Obese, not acutely ill looking, in no apparent distress,. HEENT: Normocephalic, atraumatic, nonicteric sclera, nonanemic conjunctive,. Neck: Supple, without JVD or goiter or thyroid mass. Respiratory: Normal breathing effort, clear to auscultation bilaterally, no crackles no wheezing or rhonchi. Cardiovascular: Regular rate and rhythm, S1, S2 normal, no murmur no gallop. Gastrointestinal: Normal bowel sounds, nondistended, nontender, No ascites, , No masses, no hepatosplenomegaly. Extremities : No clubbing, No peripheral edema, AV fistula in right arm. Integumentary: No rashes, petechia, suspected lesions. Lymphatics: No axilla or cervical lymphadenopathy. Neurology; alert, awake oriented x 3 no focal neurologic deficit, - Studies Medications List Reviewed: Yes Assessment And Plan - Current Problems (Diagnosis) (1) Decompensated heart failure Current Visit: Yes Status: Acute Plan: continue to adjust volume through dialysis. Echo shows normal EF with DD coreg 25 mg po BID Lisinopril 20 mg BID add Hydralazine 25 mg po TID (2) NSTEMI (non-ST elevated myocardial infarction) Current Visit: Yes Status: Acute Plan: Patient troponin trended up and now down trending Patient had and endoscopy that shows active bleeding gastric ulcers, patient is not having chest pain advised patient that will need outpatient stress test to be done, no plan for coronary angiogram at this time. ASA 81 mg daily Lipitor 40 mg daily (3) HTN (hypertension) Current Visit: No Status: Chronic Plan: BP is high, adjust medications as above. Qualifiers: Hypertension type: primary hypertension Qualified Code(s): I10 - Essential (primary) hypertension
--- NOTE | 2024-10-10 10:58 | P.PN ---
Subjective Date of Service: 10/10/24 Chief Complaint: Acute hypoxic hypercarbic respiratory failure Subjective: Improving No event overnight, patient transferred to general medical floor, his blood pressure is elevated, but he has no symptom, denied any headache any shortness of breath or dizziness. He is scheduled for EGD today Review of Systems Other: Consitutional; fever(-), chills (-), rigor(-), night sweat(-), unintentional weight loss(-), malaise (-) HEENT; diplopia (-), rhinorrhea (-), epistaxis (-), otorrhea (-), otalgia (-) Respiratory; shortness of breath (-), wheezing (-), cough (-), sputum (-), pleuritic chest pain (-) Cardiovascular; chest pain (-), peripheral edema (-), paroxysmal nocturnal dyspnea (-), orthopnea (-) Gastrointestinal; nausea (-), vomiting (-), abdominal pain (-), diarrhea (-), constipation (-), melena (-), hematochezia (-) Genitourinary; urinary frequency (-), dysuria (-), urgency (-), flank pain (-), gross hematuria (-), incontinence (-) Skin; rash (-), pruritus (-) 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 General: Obese, not acutely ill looking, in no apparent distress,. HEENT: Normocephalic, atraumatic, nonicteric sclera, nonanemic conjunctive,. Neck: Supple, without JVD or goiter or thyroid mass. Respiratory: Normal breathing effort, clear to auscultation bilaterally, no crackles no wheezing or rhonchi. Cardiovascular: Regular rate and rhythm, S1, S2 normal, no murmur no gallop. Gastrointestinal: Normal bowel sounds, nondistended, nontender, No ascites, , No masses, no hepatosplenomegaly. Extremities : No clubbing, No peripheral edema, AV fistula in right arm. Integumentary: No rashes, petechia, suspected lesions. Lymphatics: No axilla or cervical lymphadenopathy. Neurology; alert, awake oriented x 3 no focal neurologic deficit, - Studies Medications List Reviewed: Yes Assessment And Plan - Plan This is a 64-year-old male with history with history of hypertension, ESRD on HD, chronic diastolic congestive heart failure, diabetes, obstructive sleep apnea intolerant of noninvasive breathing treatment, ex-smoker presents the emergency department via EMS after being found difficult to arouse at home. #1 acute hypoxic hypercapnic respiratory failure due to #2 and #3 Resolved, stable on nasal cannula Failed BiPAP, intubated on mechanical ventilator on October 06, successfully weaned off ventilator and extubated on October 08 after daily hemodialysis with ultrafiltration #2 pulmonary edema secondary to missed hemodialysis in underlying ESRD on hemodialysis Chest x-ray on admission pulmonary edema, Significant improvement after daily hemodialysis with ultrafiltration of over 6 L follow-up chest x-ray , nearly resolution of pulmonary edema, no parenchymal lung disease. #3 Acute exacerbation of COPD improving, treatment plan discussed with buckle inspector, Dr. Collins I will discontinue systemic steroid today. #4 hypoglycemic episode in the history of type 2 diabetes Random blood sugar over 100 on hypoglycemic protocol, hemoglobin A1c 4.4, elevated C-peptide in July 2024, his diabetic medication on hold Good glycemic control on low-dose insulin sliding scale #5 anemia with CKD combined with a bleeding gastric ulcer No clinical bleeding during hospitalization, endoscopy preliminary result reviewed, gastric ulcer status post clipping and epinephrine injection fecal occult blood test is not available at this facility, hemoglobin stable 10 without transfusion, no clinical bleeding at the moment, no transfusion indicated, iron study reviewed, no sign of iron deficiency anemia, haptoglobin pending, LDH mildly elevated, reticulocyte index 0.4, indicator of hypoproliferative, will continue erythropoietin stimulating agent #6 elevated troponin likely type II MN Troponin was trending up and then plateaued, likely due to hypoxia and hypercapnia, contraindicated to parenteral anticoagulation for #8 Cardiology planning on no coronary angiogram, outpatient stress test recommended #7 renal hypertension Blood pressure is elevated after extubation, I will add nifedipine XL 30 mg once a day today in addition to carvedilol and lisinopril #8 benign gastric ulcer will continue oral pantoprazole 40 mg twice daily DVT prophylaxis sequential compression device Disposition; plan to discharge home in a couple of days
--- NOTE | 2024-10-10 10:59 | PN ---
Subjective: The patient was admitted to the hospital with over volume, respiratory failure. The patient is being dialyzed on a daily basis. The patient had EGD today, found bleeding in the gastric, status post clips. Physical Examination: Vital Signs: Blood pressure 186/59, pulse was 70, afebrile. Chest: Crackles bilateral bases. Heart: S1, S2. Systolic murmur. Abdomen: Soft, nontender. Extremities: Trace edema. Neuro: Alert. No focality. No tremor. Laboratory Data: Chest x-ray: Cardiomegaly with congestion. Hemoglobin 10.5. Sodium 132, potassium 3.3, bicarb 25, BUN 46, creatinine 6.5. Calcium 8.2, phosphorus 3.5, magnesium 2.2. Current Medications: The patient is on include lisinopril 20 mg b.i.d., carvedilol, Renvela 3200 t.i.d., omeprazole/pantoprazole. Assessment And Plan: 1. End-stage renal disease, over volume. I am going to continue the patient on dialysis. We will do sequential today and we will follow up the patient. Tomorrow, we will do full dialysis. 2. Hypertension, controlled, optimal. Continue current treatment. 3. Anemia of chronic kidney disease. Last gastrointestinal bleed, status post esophagogastroduodenoscopy. Follow up with Primary. Continue HASEEB. 4. Gastrointestinal bleed, as by Primary. 5. Respiratory failure secondary to over volume, recovered, resolved. 6. Hyponatremia, will be corrected with dialysis. 7. Secondary hyperparathyroid. Decrease Renvela. 8. Congestive heart failure with exacerbation, currently back close to normal volume. We will follow up. Spent examining the patient [id number] reviewing data lab and the radiology discussing the case with the patient discussing the case with the prepared foods service team member including hospitalist and nursing staff more than 55 minutes RENAE Voice ID: [id number] Report ID: [id number] MTDSumeet
[2024-10-10] MEDS: SEVELAMER CARBONATE 800 MG TABLET PO SCH (11:25)
--- NOTE | 2024-10-10 11:41 | ECHO ---
HEIGHT: 5 ft 7 in WEIGHT: 200 lb 3.2 oz DATE OF STUDY: 10/08/[address]: Adam Flores MD 2-DIMENSIONAL: YES M.MODE: YES DOPPLER: YES COLOR FLOW: YES TDS: NO PORTABLE: YES DEFINITY: NO BUBBLE STUDY: NO DIAGNOSIS: RESPIRATORY FALURE, ELEVATED TROPONINS CARDIAC HISTORY: CATHERIZATION: SURGERY: PROSTHETIC VALVE: PACEMAKER: MEASUREMENTS (cm) DIASTOLIC (NORMALS) SYSTOLIC (NORMALS) IVSd 1.2 (0.6-1.2) LA Diam 4.5 (1.9-4.0) LVEF 60-65% LVIDd 5.6 (3.5-5.7) LVIDs 3.5 (2.0-3.5) %FS 37% LVPWd 1.3 (0.6-1.2) Ao Diam 3.6 (2.0-3.7) 2 DIMENSIONAL ASSESSMENT: RIGHT ATRIUM: NORMAL LEFT ATRIUM: MILD DILATED RIGHT VENTRICLE: NORMAL LEFT VENTRICLE: MILD LEFT VENTRICULAR TRICUSPID VALVE: MILD TRICUSPID REGURGITATION MITRAL VALVE: SEVERE MITRAL ANNULAR CALCIFICATION, MLD MITRAL REGURGITATION PULMONIC VALVE: NORMAL AORTIC VALVE: TRACE OF AORTIC REGURGITATION, MILD AORTIC STENOSIS PERICARDIAL EFFUSION: NONE AORTIC ROOT: NORMAL LEFT VENTRICULAR WALL MOTION: NORMAL. DOPPLER/COLOR FLOW: DIASTOLIC DYSFUNCTION. COMMENTS: 1. NORMAL LEFT VENTRICULAR SYSTOLIC FUNCTION, EJECTION FRACTION 60-65%, NORMAL WALL MOTION. 2. DIASTOLIC DYSFUNCTION. 3. MILDLY ELEVATED FILLING PRESSURE (RIGHT ATRIUM 10-15mmHg). 4. MODERATE PULMONARY HYPERTENSION (RIGHT VENTRICULAR SYSTOLIC PRESSURE 40-45mmHg) TECHNOLOGIST: RAGHAVENDRA FERNANDEZ
[2024-10-10] MEDS: PANTOPRAZOLE 40MG TABLET PO SCH (17:47)
[2024-10-11] MEDS: LORazepam 2 MG/ML VIAL IV PRN (05:34)
[2024-10-11] MEDS: ASPIRIN EC 81 MG TAB PO SCH (08:37)
[2024-10-11] MEDS: NIFEDIPINE XL 30 MG TABLET PO SCH (08:37)
[2024-10-11] MEDS: HYDRALAZINE HCL 25 MG TABLET PO SCH (10:08)
--- NOTE | 2024-10-11 11:42 | P.PN ---
Subjective Date of Service: 10/11/24 Chief Complaint: Acute hypoxic hypercarbic respiratory failure Subjective: No new changes, No C/O voiced, Tolerating diet, Ambulating, Improving Review of Systems 10-point ROS is otherwise unremarkable Physical Examination - Vital Signs Temperature: 98.2 F Blood Pressure: 179/77 Pulse: 72 Respirations: 16 Pulse Ox (%): 95 - Physical Exam General: Alert, In no apparent distress HEENT: Atraumatic, PERRLA, EOMI Neck: Supple, JVD not distended Respiratory: Clear to auscultation bilaterally, Normal air movement Cardiovascular: Regular rate/rhythm, Normal S1 S2 Gastrointestinal: Normal bowel sounds, No tenderness Musculoskeletal: No tenderness Integumentary: No rashes Neurological: Normal speech, Normal tone, Normal affect Lymphatics: No axilla or inguinal lymphadenopathy Other Physical/Emotional Findings: - Physical Exam. General: Obese, not acutely ill looking, in no apparent distress,. HEENT: Normocephalic, atraumatic, nonicteric sclera, nonanemic conjunctive,. Neck: Supple, without JVD or goiter or thyroid mass. Respiratory: Normal breathing effort, clear to auscultation bilaterally, no crackles no wheezing or rhonchi. Cardiovascular: Regular rate and rhythm, S1, S2 normal, no murmur no gallop. Gastrointestinal: Normal bowel sounds, nondistended, nontender, No ascites, , No masses, no hepatosplenomegaly. Extremities : No clubbing, No peripheral edema, AV fistula in right arm. Integumentary: No rashes, petechia, suspected lesions. Lymphatics: No axilla or cervical lymphadenopathy. Neurology; alert, awake oriented x 3 no focal neurologic deficit, - Studies Medications List Reviewed: Yes Assessment And Plan - Current Problems (Diagnosis) (1) Decompensated heart failure Current Visit: Yes Status: Acute Plan: continue to adjust volume through dialysis. Echo shows normal EF with DD coreg 25 mg po BID Lisinopril 20 mg BID add Hydralazine 25 mg po TID (2) NSTEMI (non-ST elevated myocardial infarction) Current Visit: Yes Status: Acute Plan: Patient troponin trended up and now down trending Patient had and endoscopy that shows active bleeding gastric ulcers, patient is not having chest pain advised patient that will need outpatient stress test to be done, no plan for coronary angiogram at this time. ASA 81 mg daily start Plavix 75 mg daily Lipitor 40 mg daily Cardiology will sign off, please call with any questions. (3) HTN (hypertension) Current Visit: No Status: Chronic Plan: BP is high, adjust medications as above. Qualifiers: Hypertension type: primary hypertension Qualified Code(s): I10 - Essential (primary) hypertension
--- NOTE | 2024-10-11 13:09 | P.DS ---
Admission Date: 10/06/24 Discharge Date: 10/11/24 Disposition: ROUTINE DISCHARGE Discharge Condition: GOOD Reason for Admission: Acute hypoxic hypercarbic respiratory failure Brief History of Present Illness: This is a 64-year-old male with history with history of hypertension, ESRD on HD, chronic diastolic congestive heart failure, diabetes, obstructive sleep apnea intolerant of noninvasive positive pressure ventilation, ex-smoker presents the emergency department via EMS after being found difficult to arouse at home found to be severe acute hypoxic and hypercapnic respiratory failure, failed BiPAP and ended up being intubated placed on mechanical ventilator and admitted on MICU. He missed 2 or 3 session of his hemodialysis prior. Hospital Course: Chest x-ray showed pulmonary edema, he underwent daily hemodialysis with ultrafiltration. he rapidly improved afterward and he was able to wean off the ventilator and successfully extubated on October 08. His troponin was trending up and plateaued, he was contraindicated to anticoagulation for history of dark stool. His hemoglobin was stable without transfusion, there was no clinical overt GI bleeding during hospitalization. He was given IV pantoprazole for stress ulcer prevention while in ICU. He was downgraded to general medical floor on October 09, underwent EGD for history of dark stool the next day, which revealed a small gastric ulcer with stigmata Of recent bleeding. He was restarted on oral pantoprazole. His hypertensive regimen was escalated for uncontrolled hypertension after extubation. Patient is being discharged home after hemodialysis. Plan is to complete 2 weeks of pantoprazole for benign gastric ulcer. He is advised to go to his hemodialysis center for his scheduled hemodialysis, see surgical instrument repair specialist for outpatient stress test and fitness management director for endoscopic biopsy result. #1 acute hypoxic hypercapnic respiratory failure due to #2 and #3 Resolved, intubated on mechanical ventilator on October 06, successfully weaned off ventilator and extubated on October 08 after daily hemodialysis with ultrafiltration, able to taper off supplemental oxygen oxygen by nasal cannula. #2 pulmonary edema secondary to missed hemodialysis in underlying ESRD on hemodialysis Chest x-ray on admission pulmonary edema, Significant improvement after daily hemodialysis with ultrafiltration of over 6 L follow-up chest x-ray on November 08, nearly resolution of pulmonary edema, no parenchymal lung disease. #3 Acute exacerbation of COPD Improved, treated with IV methylprednisolone and empiric antibiotics. #4 hypoglycemic episode in the history of type 2 diabetes Random blood sugar over 100 on hypoglycemic protocol, hemoglobin A1c 4.4, mildly elevated C-peptide in July 2024, his diabetic medication on hold Good glycemic control on low-dose insulin sliding scale #5 anemia with CKD combined with a possible anemia of acute blood loss due to a bleeding gastric ulcer No clinical bleeding during hospitalization, fecal occult blood test is not available at this facility, hemoglobin stable 10 without transfusion, no clinical bleeding, no transfusion given, no sign of iron deficiency anemia by iron study, haptoglobin normal, LDH mildly elevated, reticulocyte index 0.4, indicator of hypoproliferative, Treated with erythropoietin stimulating agent during hemodialysis #6 elevated troponin likely type II non-STEMI Troponin was trending up and then plateaued, likely due to hypoxia and hypercapnia, contraindicated to parenteral anticoagulation for #8 He did not complain of chest pain Cardiology was planning on no coronary angiogram, outpatient stress test recommended #7 refractory renal hypertension Resumed hydralazine and started on nifedipine XL in addition to carvedilol and lisinopril #8 benign gastric ulcer with stigmata of recent bleeding status post epinephrine injection and clipping on October 10 a 3 mm small benign looking gastric ulcer in body of stomach with nonbleeding exposed vessel on the base of ulcer Will treat with pantoprazole 40 mg once a day for 2 weeks Vital Signs/Physical Exam: Temp Pulse Resp BP Pulse Ox 97.9 F 68 16 176/75 H 91 10/11/24 12:00 10/11/24 12:00 10/11/24 12:00 10/11/24 12:00 10/11/24 12:00 Other Physical/Emotional Findings: - Physical Exam. General: Obese, not acutely ill looking, in no apparent distress,. HEENT: Normocephalic, atraumatic, nonicteric sclera, nonanemic conjunctive,. Neck: Supple, without JVD or goiter or thyroid mass. Respiratory: Normal breathing effort, clear to auscultation bilaterally, no crackles no wheezing or rhonchi. Cardiovascular: Regular rate and rhythm, S1, S2 normal, no murmur no gallop. Gastrointestinal: Normal bowel sounds, nondistended, nontender, No ascites, , No masses, no hepatosplenomegaly. Extremities : No clubbing, No peripheral edema, AV fistula in right arm. Integumentary: No rashes, petechia, suspected lesions. Lymphatics: No axilla or cervical lymphadenopathy. Neurology; alert, awake oriented x 3 no focal neurologic deficit, Laboratory Data at Discharge: WBC 8.50 thou/uL (4.3-10.9) 10/10/24 06:18 Hgb 10.5 g/dL (13.6-17.9) L 10/10/24 06:18 Hct 31.6 % (39.6-49.0) L 10/10/24 06:18 Plt Count 236 thou/uL (152-406) 10/10/24 06:18 PT 11.5 SECONDS (9.4-12.5) 10/06/24 05:35 INR 1.03 10/06/24 05:35 Sodium 132 mEq/L (136-145) L 10/10/24 06:18 Potassium 3.3 mEq/L (3.5-5.1) L D 10/10/24 06:18 BUN 46 mg/dL (7-18) H 10/10/24 06:18 Creatinine 6.54 mg/dL (0.70-1.30) H 10/10/24 06:18 Glucose 96 mg/dL (74-106) 10/10/24 06:18 Phosphorus 3.5 mg/dL (2.5-4.9) 10/10/24 06:18 Magnesium 2.2 mg/dL (1.6-2.4) 10/10/24 06:18 Total Bilirubin 0.5 mg/dL (0.2-1.0) 10/10/24 06:18 AST 21 U/L (15-37) 10/10/24 06:18 ALT 33 U/L (16-61) 10/10/24 06:18 Alkaline Phosphatase 58 U/L (45-117) D 10/10/24 06:18 Home Medications: Hydralazine [Apresoline*] 25 mg PO TID 30 Days #90 tab 06/06/24 Sevelamer Carbonate [Renvela*] 3,200 mg PO TIDWM 30 Days #90 tablet 06/06/24 carvediloL [Coreg*] 25 mg PO BID 30 Days #60 tab 06/06/24 Zolpidem Tartrate [Ambien] 10 mg PO BEDTIME PRN PRN 09/01/24 Acetaminophen with Codeine [Acetaminophen-Cod #4 Tablet] 1 each PO Q1D 10/06/24 Lisinopril [Zestril] 20 mg PO BID 10/06/24 Aspirin [Aspirin EC] 81 mg PO DAILY #30 10/11/24 Atorvastatin Calcium [Lipitor*] 20 mg PO BEDTIME #30 tab 10/11/24 Hydralazine [Apresoline*] 25 mg PO TID tab 10/11/24 Nifedipine Xl [Procardia Xl*] 30 mg PO DAILY #30 tab 10/11/24 Pantoprazole [Protonix Tab*] 40 mg PO DAILY #14 tab 10/11/24 New Medications: Aspirin [Aspirin EC] 81 mg PO DAILY #30 Atorvastatin Calcium [Lipitor*] 20 mg PO BEDTIME #30 tab Nifedipine Xl [Procardia Xl*] 30 mg PO DAILY #30 tab Pantoprazole [Protonix Tab*] 40 mg PO DAILY #14 tab Diet: Renal Activity: Ad adina Followup: Constantin Ellison MD [ACTIVE - CAN ADMIT] - 1-2 Weeks Toya Andrew DO, DO [Primary Care Provider] - 1-2 Weeks Jaxon Lawson MD [ACTIVE - CAN ADMIT] - 1-2 Weeks
[2024-10-11 16:52] VITALS: BP 120/54; TEMP 98.1
--- NOTE | 2024-10-11 17:35 | P.PN ---
Subjective Date of Service: 10/11/24 Chief Complaint: Acute hypoxic hypercarbic respiratory failure, melena, GIB Subjective: Improving (No GI bleeding s/p EGD with ulcer therapy. Tolerating po diet well. Sitting at bedside talking and energetic.) Review of Systems Unremarkable Physical Examination - Vital Signs Temperature: 98.1 F Blood Pressure: 120/54 Pulse: 72 Respirations: 16 Pulse Ox (%): 94 - Physical Exam General: Alert, In no apparent distress, Oriented x3, Cooperative HEENT: Atraumatic, Normocephalic, PERRLA, EOMI Neck: Supple Respiratory: Clear to auscultation bilaterally Cardiovascular: Normal pulses Gastrointestinal: Soft and benign, No tenderness, No rebound, No guarding Neurological: Normal speech, Normal strength at 5/5 x4 extr Other Physical/Emotional Findings: - Physical Exam. General: Obese, not acutely ill looking, in no apparent distress,. HEENT: Normocephalic, atraumatic, nonicteric sclera, nonanemic conjunctive,. Neck: Supple, without JVD or goiter or thyroid mass. Respiratory: Normal breathing effort, clear to auscultation bilaterally, no crackles no wheezing or rhonchi. Cardiovascular: Regular rate and rhythm, S1, S2 normal, no murmur no gallop. Gastrointestinal: Normal bowel sounds, nondistended, nontender, No ascites, , No masses, no hepatosplenomegaly. Extremities : No clubbing, No peripheral edema, AV fistula in right arm. Integumentary: No rashes, petechia, suspected lesions. Lymphatics: No axilla or cervical lymphadenopathy. Neurology; alert, awake oriented x 3 no focal neurologic deficit, - Studies Medications List Reviewed: Yes Assessment And Plan - Current Problems (Diagnosis) (1) Melena Current Visit: Yes Status: Acute (2) Anemia Current Visit: Yes Status: Acute (3) Gastritis and duodenitis Current Visit: Yes Status: Acute (4) Multiple gastric ulcers Current Visit: Yes Status: Acute (5) Decompensated heart failure Current Visit: Yes Status: Acute (6) End-stage renal disease on hemodialysis Current Visit: Yes Status: Acute (7) GI bleed Current Visit: Yes Status: Acute Qualifiers: GI bleed type/associated pathology: melena Qualified Code(s): K92.1 - Melena - Plan REC: 1) continue PPI therapy po on discharge 2) GI clinic f/u in 1-4 weeks
[2024-10-11] MEDS ORDERED: ATORVASTATIN 20 MG TAB PO SCH (21:00)
--- NOTE | 2024-10-11 21:46 | PN ---
Date of Progress Note: 10/11/2024 Chief Complaint: End-stage renal disease, fluid overload, congestive heart failure with diastolic dy sfunction, hypoxemic respiratory failure, hyponatremia. The patient has end-stage renal disease. He presented to the hospital because of generalized weakness, respiratory failure, shortness of breath, and fluid overload. He underwent dialysis today for volume control, hyponatremia dilutional due to volume overload. Review of Systems: Denies chest pain, palpitation. Physical Examination: Lungs: Crackles bilaterally in the bases. Heart: S1, S2. 2/6 systolic murmur at left lower sternal border. Extremities: Slight edema. Abdomen: Soft, benign, nontender. Obese. Impression And Plan: 1.End-stage renal disease, volume overload. The patient is undergoing dialysis with ultrafiltration . Continue p.o. fluid restriction, low-sodium diet. The patient underwent daily dialysis session du ring this admission to control congestive heart failure. 2.Hypertension, controlled, optimal. Continue current treatment with medication and low-sodium diet . 3.Anemia of chronic kidney disease, status post EGD for possible GI bleeding. Continue HASEEB. 4.Gastrointestinal bleed as per primary team and GI service. 5.Respiratory failure secondary to volume overload. 6.Hypoxemia resolved and volemia has improved in response to dialysis. 7.Hyponatremia. Continue p.o. fluid restriction and fluid removal with dialysis and secondary hyper parathyroidism. Renvela was adjusted. 8.Congestive heart failure with exacerbation. Continue low-sodium diet and blood pressure medication including carvedilol and advance ultrafiltration with dialysis as needed. EB/MODL Voice ID: [id number] Report ID: [id number]
--- NOTE | 2024-10-12 07:38 | PN ---
Date of Progress Note: 10/09/2024 Subjective: The patient was admitted to the hospital with overvolume, respiratory distress. The patient intubated, dialyzed daily, extubated yesterday. The patient had dialysis yesterday. We managed to remove another 3 L with dialysis today. Physical Examination: Blood pressure 106/72 pulse of 73, afebrile. Chest: Crackles bilateral. Heart: S1, S2. Systolic murmur. Abdomen: Soft, nontender. Extremities: Trace edema. Neuro: Alert, no focality. Laboratory Data: sodium 138, potassium 4, bicarb 25, BUN 54, creatinine 7.1, calcium 8.2, phosphorus 4.9, albumin 2.9, corrected calcium of 9. Current Medications: The patient on include carvedilol 25 b.i.d., hydralazine 25 t.i.d., lisinopril 20 b.i.d., Epogen, Renvela 3200, Solu-Medrol, fentanyl. Assessment And Plan: 1. End-stage renal disease, overvolume, poor compliant. I am going to go ahead and continue daily dialysis while the patient in the hospital for dialysis today and tomorrow. 2. Secondary hyperparathyroidism poor compliant with diet and binder will resume binder reinforced diet 3. Anemia of chronic kidney disease. Resume HASEEB. 4. Congestive heart failure with exacerbation. The patient on daily dialysis will continue to challenge the patient_ compliance with diet and fluid restriction. The patient verbalized understanding. We will follow up. 5-respiratory failure secondary to CHF exacerbation we will continue daily dialysis and challenge the patient will follow-up with the primary 6-low-dose hypercapnic respiratory failure continue vent support Spent examining the patient [id number] reviewing data lab and the radiology discussing the case with the patient discussing the case with the sales floor team member including hospitalist and nursing staff more than 55 minutes RENAE Voice ID: [id number] Report ID: [id number] MARY
== END 2024-10-11 19:02 | disposition home or self-care (01) | DRG 208 ==
LOC: ER 04:52 → ERHOLD 11:04 → 3RD-ICU 12:16 → 2ND 10-09 16:08
PROVIDERS: ADMIT Hospitalist; ATTEND Internal Medicine
PROC: 5A1945Z Respiratory Ventilation, 24-96 Consecutive Hours (ICD-10-PCS; principal; 2024-10-06)
PROC: 0BH17EZ Insertion of Endotracheal Airway into Trachea, Via Natural or Artificial Opening (ICD-10-PCS; 2024-10-06)
PROC: 4A033R1 Measurement of Arterial Saturation, Peripheral, Percutaneous Approach (ICD-10-PCS; 2024-10-06)
PROC: 5A09357 Assistance with Respiratory Ventilation, Less than 24 Consecutive Hours, Continuous Positive Airway Pressure (ICD-10-PCS; 2024-10-06)
PROC: 30233N1 Transfusion of Nonautologous Red Blood Cells into Peripheral Vein, Percutaneous Approach (ICD-10-PCS; 2024-10-06)
PROC: 5A1D70Z Performance of Urinary Filtration, Intermittent, Less than 6 Hours Per Day (ICD-10-PCS; 2024-10-06)
PROC: 02HV33Z Insertion of Infusion Device into Superior Vena Cava, Percutaneous Approach (ICD-10-PCS; 2024-10-06)
PROC: 0DB68ZX Excision of Stomach, Via Natural or Artificial Opening Endoscopic, Diagnostic (ICD-10-PCS; 2024-10-09)
PROC: 0DB78ZX Excision of Stomach, Pylorus, Via Natural or Artificial Opening Endoscopic, Diagnostic (ICD-10-PCS; 2024-10-09)
PROC: 0W3P8ZZ Control Bleeding in Gastrointestinal Tract, Via Natural or Artificial Opening Endoscopic (ICD-10-PCS; 2024-10-10)
DX: J96.01 Acute respiratory failure with hypoxia (principal); K25.0 Acute gastric ulcer with hemorrhage; N18.6 End stage renal disease; I50.33 Acute on chronic diastolic (congestive) heart failure; I21.A1 Myocardial infarction type 2; I13.2 Hypertensive heart and chronic kidney disease with heart failure and with stage 5 chronic kidney disease, or end stage renal disease; E87.1 Hypo-osmolality and hyponatremia; N25.81 Secondary hyperparathyroidism of renal origin; J44.1 Chronic obstructive pulmonary disease with (acute) exacerbation; J96.02 Acute respiratory failure with hypercapnia; K29.70 Gastritis, unspecified, without bleeding; E11.22 Type 2 diabetes mellitus with diabetic chronic kidney disease; E11.649 Type 2 diabetes mellitus with hypoglycemia without coma; D63.1 Anemia in chronic kidney disease; I16.0 Hypertensive urgency; K29.80 Duodenitis without bleeding; K25.9 Gastric ulcer, unspecified as acute or chronic, without hemorrhage or perforation; I25.10 Atherosclerotic heart disease of native coronary artery without angina pectoris; F17.210 Nicotine dependence, cigarettes, uncomplicated; R94.5 Abnormal results of liver function studies; Z78.1 Physical restraint status; Z79.4 Long term (current) use of insulin; Z99.2 Dependence on renal dialysis; Z79.899 Other long term (current) drug therapy; Z96.653 Presence of artificial knee joint, bilateral; Z91.158 Patient's noncompliance with renal dialysis for other reason
CPT/HCPCS: 36415; 36600; 71045; 74018; 74176; 80048; 80053; 80076; 82805; 82947; 83010; 83615; 83735; 83880; 84100; 84484; 85014; 85018; 85025; 85044; 85610; 86850; 86870; 86880; 86900; 86901; 86905; 87070; 87077; 87186; 87205; 88305; 88312; 90935; 93005; 93306; 94002; 94660; 96374; 99291; J0171; J0360; J0696; J2003; J2310; J2470; J2543; J2704; J2919; J3010; J7040; J7613; Q4081

== ENCOUNTER 2024-10-17 03:19 | Inpatient (IN) | payer OTHER ==
--- NOTE | 2024-10-17 05:51 | RAD REPORT ---
EXAM: XR Chest, 1 View CLINICAL HISTORY: The patient is 64 years old and is Male; CHEST PAIN TECHNIQUE: Frontal view of the chest. COMPARISON: No relevant prior studies available. FINDINGS: Lungs: Mildly prominent interstitial markings which may indicate interstitial edema. Peribronchia l thickening. Pleural space: Unremarkable. No pneumothorax. Heart: Unremarkable. Mediastinum: Unremarkable. Normal mediastinal contour. Bones/joints: No acute findings. IMPRESSION: Mildly prominent interstitial markings which may indicate interstitial edema. Peribronchial thicken ing. Electronically signed by: Akil Yanez MD 10/17/2024 04:30 AM [facility] 8 Due to temporary technical issues with the PACS/Photetica reporting system, reports are being micheal d by the in-house radiologist without review as a courtesy to ensure prompt reporting the interpreting radiologist is fully responsible for the content of the report. Transcribed Date/Time: 10/17/2024 5:51 AM
[2024-10-17] MEDS ORDERED: ONDANSETRON 4 MG/2 ML VIAL ONE (06:04)
[2024-10-17] MEDS ORDERED: MORPHINE 4 MG/ML SYR ONE (06:04)
[2024-10-17 06:22] LABS: Absolute Eosinophils 0.1 K/uL (0-0.5); Absolute Lymphocytes (CBC) 0.3 K/uL (0.7-4.9); Absolute Monocytes 0.8 K/uL (0.1-1.3); Basophils % 0.5 % (0-1.3); Eosinophils % 0.8 % (0-4.4); Hematocrit 31.2 % (39.6-49.0); Hemoglobin 10.1 g/dL (13.6-17.9); Lymphocytes % 3.9 % (15.3-44.8); MCH 29.5 pg (27.0-35.0); MCHC 32.2 g/dL (32.0-36.0); MCV 91.4 fL (80-100); MPV 7.2 fL (7.6-11.3); Monocytes % 11.4 % (3.3-12.3); Neutrophils % 83.4 % (41.7-73.7); Nucleated Red Blood Cells % 0.1 % (0-0); Platelets 165 thou/uL (152-406); RBC Red Blood Cell Count 3.42 M/uL (4.33-5.43); Red Cell Distribution Width 17.6 % (12.1-15.2)
[2024-10-17 06:25] LABS: PT Prothrombin Time 11.8 SECONDS (9.4-12.5); Protime INR 1.06
--- NOTE | 2024-10-17 06:34 | EDPHYS ---
Physician Documentation [facility] Name: Alex Cagle Age: 64 yrs Sex: Male : 1960 Arrival Date: 10/17/2024 Time: 03:19 Bed 7 Private MD: ED Physician Robles Kennedy HPI: 10/17 03:20 This 64 yrs old Male presents to ER via Unassigned with complaints of sp4 Shortness Of Breath. 05:52 64-year-old female presents with EMS for acute onset shortness of breath associated sp4 with lower back pain. There is history of recent admission 10/06/2024 through 10/11/2024. Patient was admitted for acute hypoxic hypercarbic respiratory failure. Patient has history of hypertension end-stage renal disease on hemodialysis, chronic diastolic failure, diabetes, obstructive sleep apnea, CPAP dependent, ex-smoker. Patient was also managed for pulmonary edema, volume overload, exacerbation of COPD, hypoglycemic episode, anemia associated with CKD, elevated troponin level, refractory renal hypertension. Patient's medications include hydralazine 25 p.o. 3 times daily, sevelamer 3 times daily, carvedilol 25 twice daily, zolpidem 10 mg bedtime, acetaminophen with codeine as needed, lisinopril 20 mg twice daily, aspirin 81 mg daily, atorvastatin 20 mg bedtime, hydralazine 25 mg p.o. 3 times daily, nifedipine 30 mg p.o. daily, pantoprazole 40 mg p.o. daily.. Historical: - Allergies: 03:30 NKA; ha1 - Home Meds: 03:30 amlodipine oral [Active]; carvedilol 6.25 mg Oral tab 2 times per day [Active]; ha1 amlodipine-benazepril 10-20 mg Oral capsule 1 cap three times a day [Active]; diazepam Oral [Active]; lisinopril 20 mg Oral tablet 1 tabs daily [Active]; hydralazine 50 mg Oral tab three times a day [Active]; lisinopril Oral [Active]; Hydroxyzine Oral [Active]; Velphoro 500 mg Oral tablet [Active]; furosemide 80 mg Oral tab 1 tab 3 times per day [Active]; carvedilol 12.5 mg Oral tablet [Active]; - PMHx: 03:30 CHF; Diabetes - NIDDM; dialysis on M/W/F; ESRD; Hypertension; insomnia; ha1 - PSHx: 03:30 bilateral knee repairs; Left arm fistula; R shoulder; ha1 - Immunization history:: Adult Immunizations up to date. - Infectious Disease History:: Denies. - Social history:: Smoking status: Patient denies any tobacco usage or history of. - Family history:: not pertinent. ROS: 05:52 Constitutional: Negative for fever, chills, and weight loss, positive for shortness sp4 of breath positive for lower back pain 05:52 All other systems are negative, Exam: 05:52 Constitutional: This is a well developed, well nourished patient who is awake sp4 physically deconditioned male, ill-appearing, hypertensive but nontoxic. Acute dyspnea and tachypnea. Left upper arm hemodialysis fistula with palpable thrill Head/Face: Normocephalic, atraumatic. Eyes: Pupils equal round and reactive to light, extra-ocular motions intact. Lids and lashes normal. Conjunctiva and sclera are not injected. Cornea within normal limits. Periorbital areas with no swelling, redness, or edema. ENT: Nares patent. No nasal discharge, no septal abnormalities noted. Tympanic membranes are normal and external auditory canals are clear. Oropharynx with no redness, swelling, or masses, exudates, or evidence of obstruction, uvula midline. Mucous membranes moist. Neck: Trachea midline, no thyromegaly or masses palpated, and no cervical lymphadenopathy. Supple, full range of motion without nuchal rigidity, or vertebral point tenderness. Chest/axilla: Normal chest wall appearance and motion. Nontender with no deformity. No lesions are appreciated. Cardiovascular: Regular rate and rhythm with a normal S1 and S2. No gallops, murmurs, or rubs. Normal PMI, no JVD. No pulse deficits. Respiratory: Lungs have equal breath sounds bilaterally, clear to auscultation and percussion. No rales, rhonchi , positive bilateral expiratory wheezing, positive dyspnea and tachypnea. Abdomen/GI: Soft, with normal bowel sounds. No distension or tympany. No guarding or rebound. No evidence of tenderness throughout. Back: No spinal tenderness. No costovertebral tenderness. Skin: Warm, dry with normal turgor. Normal color with no rashes, no lesions, and no evidence of cellulitis. MS/ Extremity: Pulses equal, no cyanosis. Neurovascular intact. Full, normal range of motion. Positive bilateral lower extremity swelling with pitting. Neuro: Awake and alert, GCS 15, oriented to person, place, time, and situation. Cranial nerves II-XII grossly intact. Motor strength 5/5 in all extremities. Sensory grossly intact. Psych: Awake, alert, with orientation to person, place and time. Behavior, mood, and affect are within normal limits 05:52 ECG was reviewed by the Attending Physician. EKG at 0 332 normal sinus rhythm rate 100 rightward axis Vital Signs: 03:20 BP 190 / 96; Pulse 100; Resp 30 S; Temp 97.4(T); Pulse Ox 100% on 14 lpm Non-rebreather ha1 mask; Weight 83.91 kg; Height 5 ft. 7 in. ; 04:30 BP 180 / 82; Pulse 97; Resp 25 S; Pulse Ox 100% on Non-rebreather mask; ha1 05:15 BP 168 / 85; Pulse 96; Resp 18 S; Pulse Ox 100% on Non-rebreather mask; ha1 06:00 BP 176 / 82; Pulse 98; Resp 20 S; Pulse Ox 97% on 3 lpm NC; ha1 07:00 BP 156 / 63; Pulse 93; Resp 23; Pulse Ox 94% on 3 lpm NC; bp 03:20 Body Mass Index 28.97 (83.91 kg, 170.18 cm) ha1 Elías Coma Score: 05:52 Eye Response: spontaneous(4). Motor Response: obeys commands(6). Verbal Response: sp4 oriented(5). Total: 15. MDM: 03:25 Medical Screening Exam initiated sp4 06:31 Differential diagnosis: Anxiety Reaction asthma, Bronchitis CHF exacerbation, Chronic sp4 Obstructive Pulmonary Disease Myocardial Infarction pneumonia. Data reviewed: vital signs, nurses notes, EMS record, lab test result(s), EKG, radiologic studies, plain films. Consideration of Admission/Observation Patient was admitted/placed on observation. Escalation of care including admission/observation considered. Management of patient was discussed with the following: Hospitalist: Admit team . ED course: EXAM: XR Chest, 1 View CLINICAL HISTORY: The patient is 64 years old and is Male; CHEST PAIN TECHNIQUE: Frontal view of the chest. COMPARISON: No relevant prior studies available. FINDINGS: Lungs: Mildly prominent interstitial markings which may indicate interstitial edema. Peribronchial thickening. Pleural space: Unremarkable. No pneumothorax. Heart: Unremarkable. Mediastinum: Unremarkable. Normal mediastinal contour. Bones/joints: No acute findings. IMPRESSION: Mildly prominent interstitial markings which may indicate interstitial edema. Peribronchial thickening.. ED course: Patient should be readmitted to the hospital for hemodialysis secondary to acute volume overload. 10/17 03:24 Order name: Basic Metabolic Panel; Complete Time: 06:57 sp4 10/17 03:24 Order name: CBC with Diff; Complete Time: 06:30 sp4 10/17 03:24 Order name: LFT's; Complete Time: 06:57 sp4 10/17 03:24 Order name: Magnesium; Complete Time: 06:57 sp4 10/17 03:24 Order name: NT PRO-BNP; Complete Time: 06:57 sp4 10/17 03:24 Order name: PT-INR; Complete Time: 06:30 sp4 10/17 03:24 Order name: Troponin HS; Complete Time: 06:57 sp4 10/17 07:12 Order name: Urinalysis w/ reflexes EDMS 10/17 07:12 Order name: CBC with Automated Diff EDMS 10/17 07:12 Order name: CBC with Automated Diff EDMS 10/17 07:12 Order name: CBC with Automated Diff EDMS 10/17 07:12 Order name: CBC with Automated Diff EDMS 10/17 07:12 Order name: Comprehensive Metabolic Panel EDMS 10/17 07:12 Order name: Comprehensive Metabolic Panel EDMS 10/17 07:12 Order name: Comprehensive Metabolic Panel EDMS 10/17 07:12 Order name: Comprehensive Metabolic Panel EDMS 10/17 07:12 Order name: Magnesium EDMS 10/17 07:12 Order name: Magnesium EDMS 10/17 07:12 Order name: Magnesium EDMS 10/17 07:12 Order name: Magnesium EDMS 10/17 07:12 Order name: NT PRO-BNP EDMS 10/17 07:12 Order name: NT PRO-BNP EDMS 10/17 07:12 Order name: NT PRO-BNP EDMS 10/17 07:12 Order name: NT PRO-BNP EDMS 10/17 07:12 Order name: Phosphorus EDMS 10/17 07:12 Order name: Phosphorus EDMS 10/17 07:12 Order name: Phosphorus EDMS 10/17 07:12 Order name: Phosphorus EDMS 10/17 07:12 Order name: Troponin High Sensitivity EDMS 10/17 07:12 Order name: Troponin High Sensitivity EDMS 10/17 07:12 Order name: Troponin High Sensitivity EDMS 10/17 07:12 Order name: Troponin High Sensitivity EDMS 10/17 03:24 Order name: XRAY Chest (1 view); Complete Time: 06:22 sp4 10/17 07:12 Order name: CONS Physician Consult EDMS 10/17 07:12 Order name: CONS Physician Consult EDMS 10/17 03:24 Order name: Cardiac monitoring; Complete Time: 03:29 sp4 10/17 03:24 Order name: EKG - Nurse/Tech; Complete Time: 03:35 sp4 10/17 03:24 Order name: IV Saline Lock; Complete Time: 03:30 sp4 10/17 03:24 Order name: Labs collected and sent; Complete Time: 03:30 sp4 10/17 03:24 Order name: O2 Per Protocol; Complete Time: 03:30 sp4 10/17 03:24 Order name: O2 Sat Monitoring; Complete Time: 03:30 sp4 10/17 05:08 Order name: Misc. Order: labs hemolyzed, redraw; Complete Time: 05:59 vc1 EC:32 Rate is 100 beats/min. Rhythm is regular, Normal Sinus Rhythm. Right axis deviation sp4 noted. FL interval is normal. QRS interval is normal. QT interval is normal. No Q waves. T waves are Normal. No ST changes noted. Clinical impression: No evidence of ischemia. Interpreted by me. Reviewed by me. Administered Medications: 05:49 CANCELLED (Physician Discretion): [id number] mg IVP once sp4 06:10 Drug: morphine IVP or IV 4 mg IVP once over 4 mins Route: IVP; Infused Over: 4 mins; ay Site: right forearm; 06:40 Follow up: Response: No adverse reaction; Marked relief of symptoms; Pain is decreased; ha1 RASS: Alert and Calm (0) 06:10 Drug: Ondansetron IVP 4 mg IVP once; over 2 minutes Route: IVP; Site: right forearm; ay 06:40 Follow up: Response: No adverse reaction; Marked relief of symptoms ha1 Disposition Summary: 10/17/24 06:33 Hospitalization Ordered Notes: Hospitalization Status: Inpatient Admission sp4 Provider: Tisha Oliveros Location: Telemetry/MedSurg (Inpatient) sp4 Condition: Stable sp4 Problem: new sp4 Symptoms: have improved sp4 Bed/Room Type: Standard sp4 Room Assignment: 206(10/17/24 07:17) em1 Diagnosis - Acute volume overload, acute dyspnea, end-stage renal disease on hemodialysis, sp4 acute pulmonary edema Forms: - Medication Reconciliation Form sp4 - SBAR form sp4 - Leadership Thank You Letter sp4 Signatures: Dispatcher [employer] EDArmond Moreno em1 Nury Mccartney RN RN 1 Leandra Fisher RN RN ha1 Robles Kennedy MD MD sp4 Leola Orozco RN RN ay Corrections: (The following items were deleted from the chart) 03:24 03:24 BASIC METABOLIC PANEL+C.LAB.BRZ ordered. EDMS EDMS 03:24 03:24 CBC+H.LAB.BRZ ordered. EDMS EDMS 03:25 03:24 HEPATIC FUNCTION+C.LAB.BRZ ordered. EDMS EDMS 03:25 03:24 MAGNESIUM+C.LAB.BRZ ordered. EDMS EDMS 03:25 03:24 PROBNP+C.LAB.BRZ ordered. EDMS EDMS 03:25 03:24 PROTIME (+INR)+COAG.LAB.BRZ ordered. EDMS EDMS 03:25 03:24 Troponin High Sensitivity+C.LAB.BRZ ordered. EDMS EDMS 03:25 03:25 Chest Single View+RAD.RAD.BRZ ordered. EDMS EDMS 05:49 05:45 hydrALAZINE IVP 20 mg IVP once ordered. sp4 sp4 07:17 06:33 sp4 em1
--- NOTE | 2024-10-17 06:34 | ER ---
Nurse's Notes [facility] Name: Alex Cgale Age: 64 yrs Sex: Male : 1960 Arrival Date: 10/17/2024 Time: 03:19 Bed 7 Private MD: Diagnosis: Acute volume overload, acute dyspnea, end-stage renal disease on hemodialysis, acute pulmonary edema Presentation: 10/17 03:20 Chief complaint: Patient states: SHORTNESS OF BREATH. ON OUR ARRIVAL OXYGEN SATURATION ha1 AT 71 %. BREATHING TREATMENT GIVEN. 03:20 Coronavirus screen: Client denies travel out of the [place] in the last 14 days. Ebola ha1 Screen: No symptoms or risks identified at this time. Initial Sepsis Screen: Does the patient meet any 2 criteria? No. Patient's initial sepsis screen is negative. Does the patient have a suspected source of infection? No. Patient's initial sepsis screen is negative. Risk Assessment: Do you want to hurt yourself or someone else? Patient reports no desire to harm self or others. Onset of symptoms was October 17, 2024. 03:20 Method Of Arrival: EMS: [facility] ha1 03:20 Acuity: DEJAN 2 ha1 Triage Assessment: 03:20 General: Appears uncomfortable, Behavior is cooperative, anxious. Pain: Complains of ha1 pain in chest Pain does not radiate. Pain currently is 7 out of 10 on a pain scale. Quality of pain is described as pressure. Neuro: Level of Consciousness is awake, alert, obeys commands, Oriented to person, place, time, situation. Cardiovascular: Reports chest pain, shortness of breath, Heart tones S1 S2 present Capillary refill < 3 seconds Patient's skin is warm and dry. Rhythm is sinus rhythm. Respiratory: Reports shortness of breath at rest on exertion Airway is patent Respiratory effort is even, unlabored, Respiratory pattern is regular, symmetrical, Breath sounds are coarse bilaterally. Onset: The symptoms/episode began/occurred gradually, the patient has moderate shortness of breath. GI: No signs and/or symptoms were reported involving the gastrointestinal system. Abdomen is round non-distended. : No signs and/or symptoms were reported regarding the genitourinary system. Derm: Skin is pink, warm \T\ dry. Musculoskeletal: Circulation, motion, and sensation intact. Historical: - Allergies: 03:30 NKA; ha1 - Home Meds: 03:30 amlodipine oral [Active]; carvedilol 6.25 mg Oral tab 2 times per day [Active]; ha1 amlodipine-benazepril 10-20 mg Oral capsule 1 cap three times a day [Active]; diazepam Oral [Active]; lisinopril 20 mg Oral tablet 1 tabs daily [Active]; hydralazine 50 mg Oral tab three times a day [Active]; lisinopril Oral [Active]; Hydroxyzine Oral [Active]; Velphoro 500 mg Oral tablet [Active]; furosemide 80 mg Oral tab 1 tab 3 times per day [Active]; carvedilol 12.5 mg Oral tablet [Active]; - PMHx: 03:30 CHF; Diabetes - NIDDM; dialysis on M/W/F; ESRD; Hypertension; insomnia; ha1 - PSHx: 03:30 bilateral knee repairs; Left arm fistula; R shoulder; ha1 - Immunization history:: Adult Immunizations up to date. - Infectious Disease History:: Denies. - Social history:: Smoking status: Patient denies any tobacco usage or history of. - Family history:: not pertinent. Screenin:43 [facility] ED Fall Risk Assessment (Adult) History of falling in the last 3 months, ha1 including since admission Yes- single mechanical fall (1 pt) Confusion or Disorientation No (0 pts) Intoxicated or Sedated No (0 pts) Impaired Gait Yes (1 pt) Mobility Assist Device Used Yes (1 pt) Altered Elimination No (0 pt) Score/Fall Risk Level 3 or more points = High Risk Oriented to surroundings, Maintained a safe environment, Educated pt \T\ family on fall prevention, incl call for assistance when getting out of bed, Assessed \T\ reinforced patient's understanding of fall precautions, Hourly rounding (assess needs \T\ fall precautionary measures) done. Abuse screen: Denies threats or abuse. Denies injuries from another. Nutritional screening: No deficits noted. Tuberculosis screening: No symptoms or risk factors identified. Assessment: 03:20 Reassessment: see triage assessment. ha1 04:25 Reassessment: Patient and/or family updated on plan of care and expected duration. Pain ha1 level reassessed. Patient is alert, oriented x 3, equal unlabored respirations, skin warm/dry/pink. 05:55 Reassessment: Patient and/or family updated on plan of care and expected duration. Pain ha1 level reassessed. Patient is alert, oriented x 3, equal unlabored respirations, skin warm/dry/pink. 06:47 Reassessment: Patient and/or family updated on plan of care and expected duration. Pain ha1 level reassessed. Patient is alert, oriented x 3, equal unlabored respirations, skin warm/dry/pink. Patient states feeling better. Patient states symptoms have improved. 07:00 Reassessment: RECD REPORT FROM ANA SAAB. 64YO P/W SOB, H/O SAME WITH INTUBATION IN bp PAST. ADMIT IN PROCESS. 07:20 General: Appears in no apparent distress. uncomfortable, well groomed, well developed, kc6 Behavior is calm, cooperative, appropriate for age, drowsy. Pain: Complains of pain in chest. Neuro: Level of Consciousness is awake, alert, obeys commands, Oriented to person, place, time, situation, Appropriate for age. Cardiovascular: Reports chest pain, shortness of breath, Heart tones S1 S2 present Capillary refill < 3 seconds Rhythm is sinus rhythm Dialysis shunt: in the left arm, with palpable thrill, with auscultated bruit, with no erythema, with no edema, no bleeding noted. Respiratory: Airway is patent Trachea midline Respiratory effort is even, unlabored, Respiratory pattern is regular, symmetrical. GI: No signs and/or symptoms were reported involving the gastrointestinal system. : No signs and/or symptoms were reported regarding the genitourinary system. EENT: No signs and/or symptoms were reported regarding the EENT system. Derm: No signs and/or symptoms reported regarding the dermatologic system. Skin is intact, is healthy with good turgor, Skin is pink, warm \T\ dry. Musculoskeletal: Circulation, motion, and sensation intact. Range of motion: intact in all extremities. 07:25 Reassessment: REPORT FAXED FOR RM 206. bp Vital Signs: 03:20 BP 190 / 96; Pulse 100; Resp 30 S; Temp 97.4(T); Pulse Ox 100% on 14 lpm Non-rebreather ha1 mask; Weight 83.91 kg; Height 5 ft. 7 in. ; 04:30 BP 180 / 82; Pulse 97; Resp 25 S; Pulse Ox 100% on Non-rebreather mask; ha1 05:15 BP 168 / 85; Pulse 96; Resp 18 S; Pulse Ox 100% on Non-rebreather mask; ha1 06:00 BP 176 / 82; Pulse 98; Resp 20 S; Pulse Ox 97% on 3 lpm NC; ha1 07:00 BP 156 / 63; Pulse 93; Resp 23; Pulse Ox 94% on 3 lpm NC; bp 03:20 Body Mass Index 28.97 (83.91 kg, 170.18 cm) ha1 [place] Coma Score: 05:52 Eye Response: spontaneous(4). Motor Response: obeys commands(6). Verbal Response: sp4 oriented(5). Total: 15. ED Course: 03:20 Patient arrived in ED. gm2 03:20 Robles Kennedy MD is Attending Physician. sp4 03:20 Patient has correct armband on for positive identification. Placed in gown. Bed in low ha1 position. Call light in reach. Side rails up X2. 03:30 Inserted saline lock: 20 gauge in right antecubital area, using aseptic technique. ha1 Blood collected. Flushed with 10 mL NS. 03:35 EKG done, by ED staff. vk 03:41 Triage completed. ha1 04:08 XRAY Chest (1 view) In Process Unspecified. EDMS 06:32 Tisha Oliveros MD is Hospitalizing Provider. sp4 07:00 Report given to Leandra Fisher RN \T\ Viviana Ferrari RN. kc6 07:00 monitoring and evaluation advisor on. Pulse ox on. NIBP on. Door closed. Noise minimized. Lights dimmed. kc6 Warm blanket given. Pillow given. Verbal reassurance given. Diet: Patient given ice chips. 07:00 Arm band placed on. kc6 07:11 Henok Pinto, KATIANA is Primary Nurse. bp 07:22 No provider procedures requiring assistance completed. kc6 07:26 Patient admitted, IV remains in place. bp Administered Medications: 05:49 CANCELLED (Physician Discretion): [id number] mg IVP once sp4 06:10 Drug: morphine IVP or IV 4 mg IVP once over 4 mins Route: IVP; Infused Over: 4 mins; ay Site: right forearm; 06:40 Follow up: Response: No adverse reaction; Marked relief of symptoms; Pain is decreased; ha1 RASS: Alert and Calm (0) 06:10 Drug: Ondansetron IVP 4 mg IVP once; over 2 minutes Route: IVP; Site: right forearm; ay 06:40 Follow up: Response: No adverse reaction; Marked relief of symptoms ha1 Medication: 03:44 VIS not applicable for this client. ha1 Outcome: 06:33 Decision to Hospitalize by Provider. sp4 08:08 Patient left the ED. bp Signatures: Dispatcher [employer] EDMS Henok Pinto RN RN Leandra oHuse RN RN ha1 Jessica Alex RN RN Robles Stanton MD MD sp4 Sudha Valdez Vivian vk Yakubu, Awudu RN RN ay Corrections: (The following items were deleted from the chart) 06:53 05:15 BP 168 / 85; Pulse 96bpm; Resp 18bpm; Spontaneous; Pulse Ox 100% RA; ha1 ha1 06:53 04:30 BP 180 / 82; Pulse 97bpm; Resp 25bpm; Spontaneous; Pulse Ox 100% RA; ha1 ha1 07:22 07:20 Cardiovascular: Reports chest pain, shortness of breath, Heart tones S1 S2 kc6 present Capillary refill < 3 seconds Rhythm is sinus rhythm kc6
[2024-10-17 06:40] LABS: Albumin 3.1 g/dL (3.4-5.0); Anion Gap 9.2 mEq/L (5.0-15.0); Bilirubin Direct 0.2 mg/dL (0-0.2); Bilirubin Indirect, Calculated 0.5 mg/dL (0.2-0.8); Bilirubin Total 0.7 mg/dL (0.2-1.0); Globulin 3.2 g/dL (2.3-3.5); Protein, Total 6.3 g/dL (6.4-8.2)
[2024-10-17 06:50] LABS: Magnesium 2.1 mg/dL (1.6-2.4); Potassium 4.2 mEq/L (3.5-5.1); Troponin High Sensitivity 777.7 pg/mL (<58.9)
--- NOTE | 2024-10-17 06:53 | P.HP ---
Certification for Inpatient Patient admitted to: Inpatient With expected LOS: <2 Midnights Practitioner: I am a practitioner with admitting privileges, knowledge of patient current condition, hospital course, and medical plan of care. Services: Services provided to patient in accordance with Admission requirements found in Title 42 Section 412.3 of the Code of Federal Regulations Patient History Date of Service: 10/17/24 Reason for admission: Chest pain, NSTEMI History of Present Illness: 64-year-old male with history with history of hypertension, ESRD on HD, chronic diastolic congestive heart failure, insulin-dependent diabetes presents the emergency department via EMS for shortness of breath. Patient is confused, he does not remember if he had dialysis yesterday. He reports associated chest pain 8 out of 10, radiating to the neck, recent admission 10/06/24- 10/11/24, had acute hypoxic hypercarbic respiratory failure, patient was seen by pulmonary, was hypercapnic, last admission, was treated with BiPAP, ultimately intubated. This admission CO2 is normal, 27 patient is awake alert oriented x 2. O2 93% on 3 L. ER evaluation EKGs showed sinus rhythm, no ST changes failure. ER evaluation troponin 777, elevated BNP 78,629, nephrology notified for hemodialysis. Cardiology notified for chest pain, 8 out of 10, heparin drip ordered per cardiology. Aspirin 325 given. Elevated troponin/BNP improved from last admission, patient is in no acute distress. Patient kept NPO. Elevated blood pressure hydralazine ordered x 1. Plan to admit for NSTEMI, chest pain rule out [place], acute on chronic heart failure, end-stage renal disease on hemodialysis. Allergies No Known Allergies Allergy (Verified 01/01/21 21:09) Home Medications: Hydralazine [Apresoline*] 25 mg PO TID 30 Days #90 tab 06/06/24 Sevelamer Carbonate [Renvela*] 3,200 mg PO TIDWM 30 Days #90 tablet 06/06/24 carvediloL [Coreg*] 25 mg PO BID 30 Days #60 tab 06/06/24 Zolpidem Tartrate [Ambien] 10 mg PO BEDTIME PRN PRN 09/01/24 Acetaminophen with Codeine [Acetaminophen-Cod #4 Tablet] 1 each PO Q1D 10/06/24 Lisinopril [Zestril] 20 mg PO BID 10/06/24 Aspirin [Aspirin EC] 81 mg PO DAILY #30 10/11/24 Atorvastatin Calcium [Lipitor*] 20 mg PO BEDTIME #30 tab 10/11/24 Hydralazine [Apresoline*] 25 mg PO TID tab 10/11/24 Nifedipine Xl [Procardia Xl*] 30 mg PO DAILY #30 tab 10/11/24 Pantoprazole [Protonix Tab*] 40 mg PO DAILY #14 tab 10/11/24 - Past Medical/Surgical History Diabetic: Yes -: End-stage renal disease on hemodialysis -: Hypertension -: Type 2 Diabetes -: Chronic IJ blood clot -: CHF -: Peritoneal dialysis port -: shoulder surgery -: left upper arm fistula -: Knee and shoulder surgery Psychosocial/ Personal History: Patient with 5 children. - Family History Father -: Heart disease - Social History Alcohol use: No CD- Drugs: No Caffeine use: Yes Review of Systems 10-point ROS is otherwise unremarkable Physical Examination - Physical Exam General: Alert, In no apparent distress, Oriented x2 HEENT: Atraumatic, Normocephalic Neck: Supple, JVD not distended Respiratory: Normal air movement, Crackles/rales Cardiovascular: Normal pulses, Regular rate/rhythm, Normal S1 S2 Gastrointestinal: Normal bowel sounds, Soft and benign Musculoskeletal: No clubbing, No swelling Integumentary: No breakdown, No significant lesion Neurological: Normal speech, Other (Oriented x 2, forgetful) Lymphatics: No axilla or inguinal lymphadenopathy Urinary: Dialysis catheter - Studies Laboratory Data (last 24 hrs) 10/17/24 10/17/24 10/17/24 05:56 05:56 05:56 WBC 7.10 Hgb 10.1 L Hct 31.2 L Plt Count 165 PT 11.8 INR 1.06 Sodium 135 L Potassium 4.2 BUN 25 H Creatinine 6.36 H Glucose 101 Magnesium 2.1 Total Bilirubin 0.7 AST 24 ALT 24 Alkaline Phosphatase 74 Assessment and Plan - Plan - Problems (Diagnosis) (1) NSTEMI (non-ST elevated myocardial infarction) chest pain rule out [place] Current Visit: Yes Status: Acute (2) chest pain rule out [place] Current Visit: Yes Status: Acute (3) Acute respiratory failure secondary to decompensated heart failure/fluid volume overload end-stage renal disease on Current Visit: No Status: Acute (4) Pulmonary edema Current Visit: Yes Status: Acute (5) End-stage renal disease on hemodialysis Current Visit: Yes Status: Acute (6) Decompensated heart failure Current Visit: Yes Status: Acute - Plan Assessment -Admit to [facility], Acute on chronic heart failure -NSTEMI Chest pain rule out [place] Hypertensive urgency -Cardiology consulted Started on heparin drip -Trend troponins, BNP -Telemetry -Antihypertensives as needed -End-stage renal disease on hemodialysis, -Nephrology consulted for emergent dialysis -Trend kidney function, -Trend electrolytes replace electrolytes as needed -Acute hypoxic respiratory failure secondary to pulmonary edema, fluid volume overload, end-stage renal disease Pulmonary edema - chest x-ray shows interstitial pulmonary edema Currently 93% on 3 L Insulin-dependent diabetes mellitus Hypoglycemia, -hypoglycemia per -Accu-Cheks, Full code Diet n.p.o. DVT heparin drip Discharge Plan: Home - Advance Directives Does patient have a Living Will: No Does patient have a Durable POA for Healthcare: No - Code Status/Comfort Care Code Status: Full Code Critical Care: No Time Spent Managing Pts Care (In Minutes): 55
[2024-10-17] MEDS ORDERED: ONDANSETRON 4 MG/2 ML VIAL IV PRN (07:08)
[2024-10-17] MEDS ORDERED: ASPIRIN 81 MG CHEWABLE TABLET ONE (07:55)
[2024-10-17] MEDS ORDERED: ASPIRIN 325 MG TAB ONE (07:56)
[2024-10-17] MEDS: ASPIRIN 325 MG TAB PO SCH (08:00)
[2024-10-17] MEDS: FUROSEMIDE 40 MG/4 ML VIAL IV SCH (09:00)
--- NOTE | 2024-10-17 09:12 | P.CNS ---
Date of Consult: 10/17/24 Chief Complaint: Chest pain, NSTEMI History of Present Illness: Patient with PMH of ESRD on HD, recent hospital discharge for repiratory failure that required intubation, also found to have gastric ulcers s/p clipping, developed NSTEMI during hospital stay, presented with generalized weakness, denies having chest pain, no palpitations, no syncope. Allergies No Known Allergies Allergy (Verified 01/01/21 21:09) Home medications list reviewed: Yes Home Medications: RX: Hydralazine [Apresoline*] 25 mg PO TID 30 Days #90 tab 06/06/24 RX: Sevelamer Carbonate [Renvela*] 3,200 mg PO TIDWM 30 Days #90 tablet 06/06/24 RX: carvediloL [Coreg*] 25 mg PO BID 30 Days #60 tab 06/06/24 RX: Zolpidem Tartrate [Ambien] 10 mg PO BEDTIME PRN PRN 09/01/24 RX: Acetaminophen with Codeine [Acetaminophen-Cod #4 Tablet] 1 each PO Q1D 10/06/24 RX: Lisinopril [Zestril] 20 mg PO BID 10/06/24 Aspirin [Aspirin EC] 81 mg PO DAILY #30 10/11/24 RX: Atorvastatin Calcium [Lipitor*] 20 mg PO BEDTIME #30 tab 10/11/24 RX: Hydralazine [Apresoline*] 25 mg PO TID tab 10/11/24 RX: Nifedipine Xl [Procardia Xl*] 30 mg PO DAILY #30 tab 10/11/24 RX: Pantoprazole [Protonix Tab*] 40 mg PO DAILY #14 tab 10/11/24 - Past Medical/Surgical History Diabetic: Yes -: End-stage renal disease on hemodialysis -: Hypertension -: Type 2 Diabetes -: Chronic IJ blood clot -: CHF -: Peritoneal dialysis port -: shoulder surgery -: left upper arm fistula -: Knee and shoulder surgery Psychosocial/ Personal History: Patient with 5 children. - Family History Father Medical History: Heart disease - Social History Smoking Status: Unknown if ever smoked Alcohol use: No CD- Drugs: No Caffeine use: Yes Review of Systems 10-point ROS is otherwise unremarkable Physical Examination Temp Pulse Resp BP Pulse Ox 97.4 F 93 H 23 H 156/63 H 10/17/24 03:20 10/17/24 07:00 10/17/24 07:00 10/17/24 07:00 General: Alert, In no apparent distress HEENT: Atraumatic, PERRLA, Mucous membr. moist/pink, EOMI, Sclerae nonicteric Neck: Supple, 2+ carotid pulse no bruit, No LAD, Without JVD or thyroid abnormality Respiratory: Clear to auscultation bilaterally, Normal air movement Cardiovascular: Regular rate/rhythm, Normal S1 S2 Gastrointestinal: Normal bowel sounds, No tenderness Musculoskeletal: No tenderness Integumentary: No rashes Neurological: Normal gait, Normal speech, Normal tone, Normal affect Lymphatics: No axilla or inguinal lymphadenopathy Laboratory Data (last 24 hrs) 10/17/24 10/17/24 10/17/24 05:56 05:56 05:56 WBC 7.10 Hgb 10.1 L Hct 31.2 L Plt Count 165 PT 11.8 INR 1.06 Sodium 135 L Potassium 4.2 BUN 25 H Creatinine 6.36 H Glucose 101 Magnesium 2.1 Total Bilirubin 0.7 AST 24 ALT 24 Alkaline Phosphatase 74 - Problems (1) NSTEMI (non-ST elevated myocardial infarction) Current Visit: No Status: Acute Plan: Patient troponin were significant elevated during last hospital stay, now it is down trending to 700, typically this patient will need coronary angiogram but due to active GI bleed during last hospital admission, and no active chest pain, we decided to proceed with medical management and outpatient stress test, patient denies having chest pain at this admission, EKG no significant changes. would recommend getting stress test to check on burden of Ischemia also recommend starting patient on ASA, Plavix and Heparin drip (after getting clearance from GI) and monitor H&H to make sure there is no signs of bleeding as doing the coronary angiogram with possible PCI might needed. (2) ESRD (end stage renal disease) on dialysis Current Visit: No Status: Chronic Plan: continue HD as scheduled. (3) HTN (hypertension) Current Visit: No Status: Chronic Plan: resume patient home medications Qualifiers: Hypertension type: primary hypertension Qualified Code(s): I10 - Essential (primary) hypertension
[2024-10-17] MEDS: HYDRALAZINE HCL 20 MG/ML VIAL IV SCH (09:40)
[2024-10-17 10:59] VITALS: BMI 29.0
--- NOTE | 2024-10-17 15:06 | P.CNS ---
Date of Consult: 10/17/24 Reason for Consult: esrd Chief Complaint: Chest pain, NSTEMI History of Present Illness: 64-year-old male with history with history of hypertension, ESRD on HD, chronic diastolic congestive heart failure, insulin-dependent diabetes presents the emergency department via EMS for shortness of breath. Patient is confused, he does not remember if he had dialysis yesterday. He reports associated chest pain 8 out of 10, radiating to the neck, recent admission 10/06/24- 10/11/24, had acute hypoxic hypercarbic respiratory failure, patient was seen by pulmonary, was hypercapnic, last admission, was treated with BiPAP, ultimately intubated. This admission CO2 is normal, 27 patient is awake alert oriented x 2. O2 93% on 3 L. ER evaluation EKGs showed sinus rhythm, no ST changes failure. ER evaluation troponin 777, elevated BNP 78,629, nephrology notified for hemodialysis. Cardiology notified for chest pain, 8 out of 10, heparin drip ordered per cardiology. Aspirin 325 given. Elevated troponin/BNP improved from last admission, patient is in no acute distress. Patient kept NPO. Elevated blood pressure hydralazine ordered x 1. Plan to admit for NSTEMI, chest pain rule out [place], acute on chronic heart failure, end-stage renal disease on hemodialysis. Allergies No Known Allergies Allergy (Verified 01/01/21 21:09) Home Medications: Hydralazine [Apresoline*] 25 mg PO TID 30 Days #90 tab 06/06/24 Sevelamer Carbonate [Renvela*] 3,200 mg PO TIDWM 30 Days #90 tablet 06/06/24 carvediloL [Coreg*] 25 mg PO BID 30 Days #60 tab 06/06/24 Zolpidem Tartrate [Ambien] 10 mg PO BEDTIME PRN PRN 09/01/24 Acetaminophen with Codeine [Acetaminophen-Cod #4 Tablet] 1 each PO Q1D 10/06/24 Lisinopril [Zestril] 20 mg PO BID 10/06/24 Aspirin [Aspirin EC] 81 mg PO DAILY #30 10/11/24 Atorvastatin Calcium [Lipitor*] 20 mg PO BEDTIME #30 tab 10/11/24 Hydralazine [Apresoline*] 25 mg PO TID tab 10/11/24 Nifedipine Xl [Procardia Xl*] 30 mg PO DAILY #30 tab 10/11/24 Pantoprazole [Protonix Tab*] 40 mg PO DAILY #14 tab 10/11/24 - Past Medical/Surgical History Diabetic: Yes -: End-stage renal disease on hemodialysis -: Hypertension -: Type 2 Diabetes -: Chronic IJ blood clot -: CHF -: Peritoneal dialysis port -: shoulder surgery -: left upper arm fistula -: Knee and shoulder surgery Psychosocial/ Personal History: Patient with 5 children. - Family History Father Medical History: Heart disease - Social History Smoking Status: Unknown if ever smoked Alcohol use: No CD- Drugs: No Caffeine use: Yes Review of Systems 10-point ROS is otherwise unremarkable Respiratory: Shortness of Breath Cardiovascular: Palpitations, Edema Physical Examination Temp Pulse Resp BP Pulse Ox 98.2 F 85 20 161/80 H 91 10/17/24 12:00 10/17/24 12:00 10/17/24 12:00 10/17/24 12:00 10/17/24 12:00 General: Alert, Oriented x3 HEENT: Atraumatic, Normocephalic Neck: Supple, JVD distended Respiratory: Crackles/rales, Expiratory wheezes Cardiovascular: Normal pulses, Edema Gastrointestinal: Normal bowel sounds, Hypoactive, Soft and benign Musculoskeletal: No clubbing, No swelling, No contractures Neurological: Normal gait, Normal speech, Normal strength at 5/5 x4 extr, Cranial nerves 3-12 intact Laboratory Data (last 24 hrs) 10/17/24 10/17/24 10/17/24 05:56 05:56 05:56 WBC 7.10 Hgb 10.1 L Hct 31.2 L Plt Count 165 PT 11.8 INR 1.06 Sodium 135 L Potassium 4.2 BUN 25 H Creatinine 6.36 H Glucose 101 Magnesium 2.1 Total Bilirubin 0.7 AST 24 ALT 24 Alkaline Phosphatase 74 Conclusions/Impression: [id number] And Plan: 1. End-stage renal disease with overvolume. I am going to do daily dialysis for the patient and we will follow up the patient. 2. Possible overdose with Codeine. We will dialyze. We will consider antidote Narcan. 3. Hyponatremia, dilutional, will be corrected with dialysis. 4. Anemia of chronic kidney disease, questionable tarry stool. GI bleed. Continue PPI. We will hold heparin on dialysis. Resume HASEEB. 5. Coronary artery disease with congestive heart failure with non-ST elevationmyocardial infarction with congestive heart failure exacerbation. We will optimize the fluid status for the patient and we will follow up with Cardiology. 6. Diabetes, as by Primary. Time spent examining the patient [id number], reviewing data, lab and r adiology, placing order, discussing the case with the team facilitator including hospitalist and nursing staff more than 75 minutes.
[2024-10-17] MEDS: HEPARIN 5000 UNIT/ML 1 ML VIAL IV SCH (16:24)
[2024-10-17] MEDS: ACETAMINOPHEN 500 MG TAB PO PRN (16:24)
[2024-10-17] MEDS: HEPARIN/D5W 25,000 UNIT/500 ML BAG IV SCH (16:31)
[2024-10-17] MEDS ORDERED: SODIUM CHLORIDE 0.9% 10ML INJ IV PRN (17:40)
[2024-10-17] MEDS: PANTOPRAZOLE 40 MG INJ IVP SCH (18:32)
[2024-10-17] MEDS ORDERED: FLU (Fluarix Triv) TS24-25(6MOS UP)/PF 45 MCG/0.5 ML Syringe IM ONE (18:45)
--- NOTE | 2024-10-17 19:56 | P.PN ---
Subjective Date of Service: 10/17/24 Chief Complaint: Chest pain, NSTEMI Admitted for chest pain, started on a heparin drip, no reported bleeding. N.p.o. for possible cardiac cath tomorrow, Review of Systems 10-point ROS is otherwise unremarkable Physical Examination - Vital Signs Temperature: 98.6 F Blood Pressure: 152/74 Pulse: 86 Respirations: 20 Pulse Ox (%): 92 - Physical Exam General: Alert, In no apparent distress, Oriented x2, Other (Intermittent confusion) HEENT: Atraumatic, Normocephalic Neck: 2+ carotid pulse no bruit, JVD not distended Respiratory: Normal air movement, Crackles/rales Cardiovascular: Regular rate/rhythm, Normal S1 S2 Capillary refill: <2 Seconds Gastrointestinal: Normal bowel sounds, Soft and benign Musculoskeletal: No swelling, No contractures Integumentary: No breakdown, No significant lesion Neurological: Normal speech, Normal strength at 5/5 x4 extr - Studies Laboratory Data (last 24 hrs) 10/17/24 10/17/24 10/17/24 05:56 05:56 05:56 WBC 7.10 Hgb 10.1 L Hct 31.2 L Plt Count 165 PT 11.8 INR 1.06 Sodium 135 L Potassium 4.2 BUN 25 H Creatinine 6.36 H Glucose 101 Magnesium 2.1 Total Bilirubin 0.7 AST 24 ALT 24 Alkaline Phosphatase 74 Assessment And Plan - Plan - Problems (Diagnosis) NSTEMI (non-ST elevated myocardial infarction) chest pain rule out [place] Current Visit: Yes Status: Acute chest pain rule out [place] Current Visit: Yes Status: Acute Acute respiratory failure secondary Current Visit: No Status: Acute decompensated heart failure Current Visit: No Status: Acute Pulmonary edema Current Visit: Yes Status: Acute End-stage renal disease on hemodialysis with fluid volume overload Current Visit: Yes Status: Acute Decompensated heart failure Current Visit: Yes Status: Acute history of GI bleed Current Visit: Yes Status: Acute - Plan Assessment -Admit to [facility], Acute on chronic heart failure -NSTEMI Chest pain rule out [place] Hypertensive urgency -Cardiology consulted Started on heparin drip -Trend troponins, BNP -Telemetry -Antihypertensives as needed -End-stage renal disease on hemodialysis, -Nephrology consulted for emergent dialysis -Trend kidney function, -Trend electrolytes replace electrolytes as needed Plan for daily dialysis -Acute hypoxic respiratory failure secondary to pulmonary edema, fluid volume overload, end-stage renal disease Pulmonary edema - chest x-ray shows interstitial pulmonary edema Currently 93% on 3 L History of GI bleed, PPI, Dr. Collins requested evaluation for cardiac clearance for cath tomorrow Insulin-dependent diabetes mellitus Hypoglycemia, -hypoglycemia per -Accu-Cheks, Full code Diet n.p.o. DVT heparin drip Discharge Plan: Home - Code Status/Comfort Care Code Status: Full Code Critical Care: No Time Spent Managing PTS Care (In Minutes): 35
--- NOTE | 2024-10-17 19:58 | P.PN ---
Date of Service: 10/17/24 Subjective Chief Complaint: Chest pain, NSTEMI Admitted for chest pain, started on a heparin drip, no reported bleeding. N.p.o. for possible cardiac cath tomorrow, Review of Systems 10-point ROS is otherwise unremarkable Physical Examination - Vital Signs reviewed - Physical Exam General: Alert, In no apparent distress, Oriented x2, Other (Intermittent confusion) HEENT: Atraumatic, Normocephalic Neck: 2+ carotid pulse no bruit, JVD not distended Respiratory: Normal air movement, Crackles/rales Cardiovascular: Regular rate/rhythm, Normal S1 S2 Capillary refill: <2 Seconds Gastrointestinal: Normal bowel sounds, Soft and benign Musculoskeletal: No swelling, No contractures Integumentary: No breakdown, No significant lesion Neurological: Normal speech, Normal strength at 5/5 x4 extr Assessment And Plan - Plan - Problems (Diagnosis) NSTEMI (non-ST elevated myocardial infarction) chest pain rule out [place] Current Visit: Yes Status: Acute chest pain rule out [place] Current Visit: Yes Status: Acute Acute respiratory failure secondary Current Visit: No Status: Acute decompensated heart failure Current Visit: No Status: Acute Pulmonary edema Current Visit: Yes Status: Acute End-stage renal disease on hemodialysis with fluid volume overload Current Visit: Yes Status: Acute Decompensated heart failure Current Visit: Yes Status: Acute history of GI bleed Current Visit: Yes Status: Acute - Plan Assessment -Admit to [facility], Acute on chronic heart failure -NSTEMI Chest pain rule out [place] Hypertensive urgency -Cardiology consulted Started on heparin drip -Trend troponins, BNP -Telemetry -Antihypertensives as needed -End-stage renal disease on hemodialysis, -Nephrology consulted for emergent dialysis -Trend kidney function, -Trend electrolytes replace electrolytes as needed Plan for daily dialysis -Acute hypoxic respiratory failure secondary to pulmonary edema, fluid volume overload, end-stage renal disease Pulmonary edema - chest x-ray shows interstitial pulmonary edema Currently 93% on 3 L History of GI bleed, PPI, Dr. Collins requested evaluation for cardiac clearance for cath tomorrow Insulin-dependent diabetes mellitus Hypoglycemia, -hypoglycemia per -Accu-Cheks, Full code Diet n.p.o. DVT heparin drip Discharge Plan: Home - Code Status/Comfort Care Code Status: Full Code Critical Care: No Time Spent Managing PTS Care (In Minutes): 35
[2024-10-17] MEDS: MORPHINE 4 MG/ML SYR IV PRN (22:34)
[2024-10-17] MEDS: ZOLPIDEM TARTRATE 10 MG TABLET PO PRN (23:30)
[2024-10-18] MEDS: HYDRALAZINE HCL 20 MG/ML VIAL IV PRN (01:05)
[2024-10-18 05:42] LABS: Absolute Basophils 0.1 K/uL (0-0.5); Absolute Eosinophils 0.1 K/uL (0-0.5); Absolute Lymphocytes (CBC) 0.7 K/uL (0.7-4.9); Absolute Monocytes 0.8 K/uL (0.1-1.3); Basophils % 0.9 % (0-1.3); Eosinophils % 2.3 % (0-4.4); Hematocrit 29.8 % (39.6-49.0); Hemoglobin 9.5 g/dL (13.6-17.9); MCH 29.4 pg (27.0-35.0); MCV 91.9 fL (80-100); MPV 7.2 fL (7.6-11.3); Monocytes % 13.3 % (3.3-12.3); Neutrophils % 70.5 % (41.7-73.7); Nucleated Red Blood Cells % 0.1 % (0-0); Platelets 140 thou/uL (152-406); RBC Red Blood Cell Count 3.24 M/uL (4.33-5.43); Red Cell Distribution Width 18.4 % (12.1-15.2)
[2024-10-18 06:15] LABS: Bilirubin Total 0.7 mg/dL (0.2-1.0); Globulin 2.9 g/dL (2.3-3.5); Magnesium 2.1 mg/dL (1.6-2.4); Phosphorus 3.9 mg/dL (2.5-4.9); Protein, Total 5.9 g/dL (6.4-8.2)
[2024-10-18] MEDS: HYDRALAZINE HCL 20 MG/ML VIAL IV ONE (08:14)
--- NOTE | 2024-10-18 10:00 | P.PN ---
Subjective Date of Service: 10/18/24 Chief Complaint: Chest pain, NSTEMI Subjective: No new changes, No C/O voiced, Tolerating diet, Ambulating, Improving Review of Systems 10-point ROS is otherwise unremarkable Physical Examination - Vital Signs Temperature: 98.8 F Blood Pressure: 151/71 Pulse: 96 Respirations: 18 Pulse Ox (%): 95 - Physical Exam General: Alert, In no apparent distress HEENT: Atraumatic, PERRLA, EOMI Neck: Supple, JVD not distended Respiratory: Clear to auscultation bilaterally, Normal air movement Cardiovascular: Regular rate/rhythm, Normal S1 S2 Gastrointestinal: Normal bowel sounds, No tenderness Musculoskeletal: No tenderness Integumentary: No rashes Neurological: Normal speech, Normal tone, Normal affect Lymphatics: No axilla or inguinal lymphadenopathy - Studies Medications List Reviewed: Yes Assessment And Plan - Current Problems (Diagnosis) (1) NSTEMI (non-ST elevated myocardial infarction) Current Visit: No Status: Acute Plan: Patient troponin were significant elevated during last hospital stay, now it was 700 but peaked up again, explained in details risk and benefit of needing coronary angiogram and the higher risk of bleeding with anticoagulation and DAPT with his recent GI bleed and gastric ulcers, and he agrees to proceed. also recommend starting patient on ASA, Plavix and Heparin drip which he has been on but no signs of bleeding (2) ESRD (end stage renal disease) on dialysis Current Visit: No Status: Chronic Plan: continue HD as scheduled. (3) HTN (hypertension) Current Visit: No Status: Chronic Plan: resume patient home medications Qualifiers: Hypertension type: primary hypertension Qualified Code(s): I10 - Essential (primary) hypertension
[2024-10-18] MEDS ORDERED: HEPA 1000U/500MLS 2,000 UNIT/1,000 ML BAG IV ONE (10:06)
[2024-10-18] MEDS ORDERED: HEPARIN 10,000 UNIT/10 ML VIAL IV ONE (10:06)
[2024-10-18] MEDS ORDERED: LIDOCAINE 1% 20 ML MDV ONE (10:06)
[2024-10-18] MEDS ORDERED: CLOPIDOGREL 75 MG TABLET ONE (10:07)
[2024-10-18] MEDS ORDERED: TICAGRELOR 90 MG TABLET PO ONE (10:07)
[2024-10-18] MEDS ORDERED: HEPARIN 5000 UNIT/ML 1 ML VIAL ONE (10:07)
[2024-10-18] MEDS ORDERED: MIDAZOLAM HCL 2 MG/2 ML INJ ONE (10:07)
[2024-10-18] MEDS ORDERED: ATROPINE SULF 1 MG/10 ML SYR IV ONE (10:07)
[2024-10-18] MEDS ORDERED: FENTANYL CITR 100 MCG/2 ML ONE (10:08)
[2024-10-18] MEDS ORDERED: ASPIRIN 325 MG TAB ONE (10:08)
[2024-10-18] MEDS ORDERED: NA CHLORIDE 0.9% 500 ML ONE (10:18)
[2024-10-18] MEDS ORDERED: FLU (Fluarix Triv) TS24-25(6MOS UP)/PF 45 MCG/0.5 ML Syringe IM ONE (11:00)
[2024-10-18] MEDS ORDERED: DIPHENHYDRAMINE 50 MG/ML VIAL ONE (11:25)
[2024-10-18] MEDS: HYDRALAZINE HCL 20 MG/ML VIAL ONE (12:29)
--- NOTE | 2024-10-18 13:49 | OP ---
Date of Procedure: 10/18/2024 Surgeon: Jaxon Lawson Procedure Performed: 1.Selective coronary angiogram. 2.Attempted PCI of the RCA. Indication For Procedure: [id number]. Complications: None. Estimated Blood Loss: Less than 50 cc. Access: Right radial, closed by TR band. Sedation Time: 40 minutes with 1 of Versed and 25 of fentanyl. Description Of Procedure: After risks, and benefits, and alternatives were explained to the patient, patient was brought to the poultry hatchery laborer, prepped and draped in sterile fashion. Time-out was performed. Sedation was administered. Right radial access was obtained using ultrasound-guided micropuncture technique. [place] 4.0 catheter was advanced over a J-wire to the aortic root. Selective angiogram wa s done using this catheter to the left coronary system, that was later exchanged for a JR4 catheter t o engage the right coronary system. After the coronary angiogram findings, we exchanged the JR4 cath eter with JR4 guide to the aortic root and engaged the RCA. Heparin was administered. ACT was thera peutic. Next, a Runthrough wire was passed across the lesion. We were not able to engage the lesion with a JR4 catheter, so exchanged with an AL1 guide and a Runthrough wire was passed across the lesi on. We attempted to deliver a 3.0 x 20 mm NC balloon, but was unable to cross the lesion due to sign ificant calcification. GuideLiner was used for support all the way down to the mid RCA. Then we att empted to cross the lesion with an [id number] balloon 2.5 mm NC, but was still not able to cross t he lesion due to significant calcification and tortuosity. We decided to abort the procedure. This patient will need high risk PCI with rotablation. Final angiogram shows GARY-3 flow. The catheter w as removed over a J-wire. Sheath was removed. TR band was applied. Hemostasis was achieved and pat ient was moved back to recovery in stable condition. Findings: 1.Left main normal. 2.LAD; proximal mild luminal irregularities, then mid diffuse 40% to 50% disease after diagonal that has mild luminal irregularities. 3.Left circ; mild luminal irregularities. 4.OM1; proximal 40% to 50% disease, then mild luminal irregularities. 5.RCA; large, dominant, heavy calcified with mid 50% to 60% disease followed by mid to distal 90% di sease after the RV marginal. Attempted PCI tried as above, but was unsuccessful. 6.RPDA, mild luminal irregularities. Assessment And Plan: Significant heavy calcified mid to distal RCA disease. Unable to cross with an y balloon despite using the aggressive guide and GuideLiner support. Plan is to transfer for high-risk PCI with rotablation as we do not have it available in our facility . JULIANNA Voice ID: [id number] Report ID: [id number]
--- NOTE | 2024-10-18 17:02 | P.DS ---
Admission Date: 10/17/24 Discharge Date: 10/19/24 Disposition: TRANSFER TO [facility] Discharge Condition: FAIR Reason for Admission: Chest pain, NSTEMI Brief History of Present Illness: 64-year-old male with history with history of hypertension, ESRD on HD, chronic diastolic congestive heart failure, insulin-dependent diabetes presents the emergency department via EMS for shortness of breath. Patient is confused, he does not remember if he had dialysis yesterday. He reports associated chest pain 8 out of 10, radiating to the neck, recent admission 10/06/24- 10/11/24, had acute hypoxic hypercarbic respiratory failure, patient was seen by pulmonary, was hypercapnic, last admission, was treated with BiPAP, ultimately intubated. This admission CO2 is normal, 27 patient is awake alert oriented x 2. O2 93% on 3 L. ER evaluation EKGs showed sinus rhythm, no ST changes failure. ER evaluation troponin 777, elevated BNP 78,629, nephrology notified for hemodialysis. Cardiology notified for chest pain, 8 out of 10, heparin drip ordered per cardiology. Aspirin 325 given. Elevated troponin/BNP improved from last admission, patient is in no acute distress. Patient kept NPO. Elevated blood pressure hydralazine ordered x 1. Plan to admit for NSTEMI, chest pain rule out [place], acute on chronic heart failure, end-stage renal disease on hemodialysis. Physical Exam General: Alert, In no apparent distress, Oriented x3 HEENT: Atraumatic, Normocephalic Neck: 2+ carotid pulse no bruit, JVD not distended Respiratory: Normal air movement, Crackles/rales Cardiovascular: Regular rate/rhythm, Normal S1 S2 Capillary refill: <2 Seconds Gastrointestinal: Normal bowel sounds, Soft and benign Musculoskeletal: No swelling, No contractures Integumentary: No breakdown, No significant lesion Neurological: Normal speech, Normal strength at 5/5 x4 extr Hospital Course: 64-year-old male with history with history of hypertension, ESRD on HD, chronic diastolic congestive heart failure, insulin-dependent diabetes presents the emergency department via EMS for shortness of breath. Patient is confused, he does not remember if he had dialysis yesterday. He reports associated chest pain 8 out of 10, radiating to the neck, recent admission 10/06/24- 10/11/24, had acute hypoxic hypercarbic respiratory failure, patient was seen by pulmonary, was hypercapnic, last admission, was treated with BiPAP, ultimately intubated. This admission CO2 is normal, 27 patient is awake alert oriented x 2. O2 93% on 3 L. ER evaluation EKGs showed sinus rhythm, no ST changes failure. ER evaluation troponin 777, elevated BNP 78,629, nephrology notified for hemodialysis. Cardiology notified for chest pain, 8 out of 10, heparin drip ordered per cardiology. Aspirin 325 given. Elevated troponin/BNP improved from last admission, patient is in no acute distress. Patient kept NPO. Elevated blood pressure hydralazine ordered x 1. Patient was evaluated by cardiology for NSTEMI, is status post cardiac cath, unable to do PCI. Per cardiology plan to transfer for higher level of care. -Transfer to higher level of care for cardiovascular services Status post cardiac cath 10/18/24 unable to complete PCI, Significant heavy calcified mid to distal RCA disease. Unable to cross with any balloon despite using the aggressive guide and GuideLiner support. Assessment NSTEMI, elevated troponin treated with a heparin drip, which Chest pain rule out [place] Acute on chronic heart failure with preserved ejection fraction End-stage renal disease on hemodialysis Monday History of gastric ulcer, GI bleed, started on PPI, no bleeding while on heparin drip, during this admission Hypertensive urgency treated with antihypertensives Insulin-dependent diabetes mellitus Pulmonary edema from fluid volume overload from end-stage renal disease on hemodialysis Tobacco use educated on tobacco cessation COPD not in exacerbation Chest x-ray on admission Mildly prominent interstitial markings which may indicate interstitial edema. Peribronchial thickening. Echocardiogram 1. NORMAL LEFT VENTRICULAR SYSTOLIC FUNCTION, EJECTION FRACTION 60-65%, NORMAL WALL MOTION. 2. DIASTOLIC DYSFUNCTION. 3. MILDLY ELEVATED FILLING PRESSURE (RIGHT ATRIUM 10-15mmHg). 4. MODERATE PULMONARY HYPERTENSION (RIGHT VENTRICULAR SYSTOLIC PRESSURE 40-45mmHg) Vital Signs/Physical Exam: Temp Pulse Resp BP Pulse Ox 97.5 F 86 16 166/54 H 95 10/18/24 12:25 10/18/24 15:45 10/18/24 15:45 10/18/24 15:45 10/18/24 10:00 Laboratory Data at Discharge: WBC 5.70 thou/uL (4.3-10.9) 10/18/24 05:29 Hgb 9.5 g/dL (13.6-17.9) L 10/18/24 05:29 Hct 29.8 % (39.6-49.0) L 10/18/24 05:29 Plt Count 140 thou/uL (152-406) L 10/18/24 05:29 PT 11.8 SECONDS (9.4-12.5) 10/17/24 05:56 INR 1.06 10/17/24 05:56 APTT 30.8 SECONDS (24.3-36.9) 10/17/24 22:30 Sodium 135 mEq/L (136-145) L 10/18/24 05:29 Potassium 4.2 mEq/L (3.5-5.1) 10/18/24 14:59 BUN 23 mg/dL (7-18) H 10/18/24 05:29 Creatinine 5.53 mg/dL (0.70-1.30) H 10/18/24 05:29 Glucose 99 mg/dL (74-106) 10/18/24 05:29 Phosphorus 3.9 mg/dL (2.5-4.9) 10/18/24 05:29 Magnesium 2.1 mg/dL (1.6-2.4) 10/18/24 05:29 Total Bilirubin 0.7 mg/dL (0.2-1.0) 10/18/24 05:29 AST 23 U/L (15-37) 10/18/24 05:29 ALT 21 U/L (16-61) 10/18/24 05:29 Alkaline Phosphatase 72 U/L (45-117) 10/18/24 05:29 Triglycerides 39 mg/dL (<150) 10/17/24 08:48 Cholesterol 131 mg/dL (<200) 10/17/24 08:48 HDL Cholesterol 74 mg/dL (40-60) H 10/17/24 08:48 Cholesterol/HDL Ratio 1.77 10/17/24 08:48 Home Medications: carvediloL [Coreg*] 25 mg PO BID 30 Days #60 tab 06/06/24 Zolpidem Tartrate [Ambien] 10 mg PO BEDTIME PRN PRN 09/01/24 Acetaminophen with Codeine [Acetaminophen-Cod #4 Tablet] 1 each PO Q1D PRN 12/29/24 Lisinopril [Zestril] 20 mg PO DAILY 10/06/24 Aspirin [Aspirin EC] 81 mg PO DAILY #30 10/11/24 Hydralazine [Apresoline*] 25 mg PO TID tab 10/11/24 Pantoprazole [Protonix Tab*] 40 mg PO DAILY #14 tab 10/11/24 Amlodipine Besylate/Benazepril [Amlodipine-Benazepril 10-20 mg] 10 - 20 mg PO TID 10/18/24 Sucroferric Oxyhydroxide [Velphoro] 500 mg PO DIRECTED 10/18/24 Physician Discharge Instructions: Patient is a 64-year-old gentleman came to the hospital with chest discomfort along with shortness of breath. Patient was in the hospital 10 days ago with similar complaints. At that time patient had required mechanical ventilation for about 48 hours before he was able to be extubated. Patient was dialyzed and at that time he was scheduled to follow-up with cardiology. He gets dialyzed on Monday and Fridays. Patient returned back to the hospital within a week with chest pain and shortness of breath. Troponins initially were 700s but repeat went up to 2900. Patient was placed on a heparin drip and continued his cardiac meds. Cardiology was able to take patient to the [facility] where angiogram revealed that patient had multivessel disease but the culprit appeared to be the mid to distal RCA lesion that was 90% occluded. Cardiology attempted to get a balloon catheter through the lesion to do angioplasty but they were unsuccessful. Recommended getting a rotablation to get through the lesion, but recommended CT surgery backup for anything such as that could be performed. At this time plan is to transfer to [facility] for further care. Patient will continue on a heparin drip. We did try to get GI evaluation prior to the procedure but were unsuccessful. Patient has a history of GI bleed and he is on been on a PPI. He has been on the heparin drip for the last 3 days with no signs of bleeding and his hemoglobin is stable. Patient will be transferred once arrangements are completed. Disposition: -Transfer to [facility] for cardiac catheterization with CT surgery backup. Status post cardiac cath 10/18/24 unable to complete PCI, Significant heavy calcified mid to distal RCA disease. Unable to cross with any balloon despite using the aggressive guide and GuideLiner support. Medical history: Type I myocardial infarction, elevated troponin treated with a heparin drip HFpEF ESRD on hemodialysis Monday History of gastric ulcer, GI bleed, started on PPI (no bleeding while on heparin drip, during this admission) Hypertensive urgency treated with antihypertensives Insulin-dependent diabetes mellitus; Pulmonary edema from fluid volume overload from end-stage renal disease on hemodialysis (recent intubation for respiratory failure) Tobacco use educated on tobacco cessation COPD Chest x-ray on admission: Mildly prominent interstitial markings which may indicate interstitial edema. Peribronchial thickening. Echocardiogram 1. NORMAL LEFT VENTRICULAR SYSTOLIC FUNCTION, EJECTION FRACTION 60-65%, NORMAL WALL MOTION. 2. DIASTOLIC DYSFUNCTION. 3. MILDLY ELEVATED FILLING PRESSURE (RIGHT ATRIUM 10-15mmHg). 4. MODERATE PULMONARY HYPERTENSION (RIGHT VENTRICULAR SYSTOLIC PRESSURE 40-45mmHg) Diet: AHA Followup: NONE,NONE [Primary Care Provider] - Jaxon Lawson MD [ACTIVE - CAN ADMIT] - Constantin Ellison MD [ACTIVE - CAN ADMIT] - Time spent managing pt's care (in minutes): 45
--- NOTE | 2024-10-18 21:44 | PN ---
Date of Progress Note: 10/18/2024 Chief Complaint: End-stage renal disease, [id number] myocardial infarction, chest pain, pang ry artery disease. History Of Present Illness: The patient is a 64-year-old man with history of hypertension, end-stage renal disease, chronic diastolic congestive heart failure, insulin-dependent diabetes mellitus, pres ented to emergency room via EMS for shortness of breath. The patient has multiple admissions for juan carlos rtness of breath and fluid overload. The patient has congestive heart failure and was previously adm itted for congestive heart failure exacerbation. The patient has history of hypercarbic respiratory failure which was previously evaluated by Pulmonary Team. The patient on admission required BiPAP an d was intubated. The patient was found to have elevated troponin up to 777. Today, he is undergoing cardiac catheterization and was found to have multifocal lesion due to coronary artery disease and h e is evaluated by asian studies professor and will need PTCA and stent. Review of Systems: The patient denies chest pain, palpitation, shortness of breath, has gradually resolved after dialysi s. Physical Examination: Lungs: Diminished breath sounds at bases. Heart: S1, S2. Abdomen: Soft. Extremities: No edema. Laboratory Work: Hemoglobin 10.1, WBC 7.1, platelet count 165,000. Sodium 135, potassium 4.2, BUN 2 5, creatinine 6.36, magnesium 2.1, glucose 101. Impression And Plan: 1.End-stage renal disease with fluid overload. The patient had dialysis done yesterday. Today, he will have dialysis for metabolic clearance and to control potassium level. Assess exposure with IV c ontrast. IV contrast was used for cardiac catheterization and angiogram. 2.Hyponatremia, dilutional due to fluid overload. Continue p.o. fluid restriction, low-sodium diet. Continue to advance ultrafiltration to treat fluid overload and for management of congestive heart failure with diastolic dysfunction. 3.Coronary artery disease, [id number]-sludiopdj myocardial infarction. The patient has severe coronary artery disease and is to have cardiac procedure with stent and angioplasty. 4.Renal osteodystrophy. Monitor phosphorus level and adjust binders. 5.Anemia of CKD. Continue HASEEB and continue PPI. Apparently, the patient had some episodes of lower GI bleeding. Further recommendation from Primary Team. EB/MODL Voice ID: [id number] Report ID: [id number]
[2024-10-19 04:51] LABS: Absolute Eosinophils 0.1 K/uL (0-0.5); Absolute Lymphocytes (CBC) 0.5 K/uL (0.7-4.9); Absolute Monocytes 0.7 K/uL (0.1-1.3); Absolute Neutrophil 3.4 K/uL (1.8-8.0); Basophils % 0.6 % (0-1.3); Eosinophils % 2.4 % (0-4.4); Hematocrit 27.3 % (39.6-49.0); Hemoglobin 8.9 g/dL (13.6-17.9); Lymphocytes % 11.4 % (15.3-44.8); MCH 29.6 pg (27.0-35.0); MCHC 32.6 g/dL (32.0-36.0); MCV 90.9 fL (80-100); MPV 7.5 fL (7.6-11.3); Monocytes % 14.5 % (3.3-12.3); Neutrophils % 71.1 % (41.7-73.7); Platelets 134 thou/uL (152-406); Red Cell Distribution Width 18.1 % (12.1-15.2)
[2024-10-19 06:38] LABS: Albumin 2.7 g/dL (3.4-5.0); Albumin/Globulin Ratio 0.9 (1.1-1.8); Anion Gap 10.5 mEq/L (5.0-15.0); Bilirubin Total 0.4 mg/dL (0.2-1.0); Magnesium 1.9 mg/dL (1.6-2.4); Phosphorus 3.8 mg/dL (2.5-4.9); Potassium 4.5 mEq/L (3.5-5.1); Protein, Total 5.7 g/dL (6.4-8.2)
--- NOTE | 2024-10-19 07:02 | P.PN ---
Date of Service: 10/18/24 Subjective Chief Complaint: Chest pain, NSTEMI N.p.o. for possible cardiac cath, no reported chest pain, on heparin drip Review of Systems 10-point ROS is otherwise unremarkable Physical Examination - Vital Signs reviewed - Physical Exam General: Alert, In no apparent distress, Oriented x3 HEENT: Atraumatic, Normocephalic Neck: 2+ carotid pulse no bruit, JVD not distended Respiratory: Normal air movement, Crackles, unlabored Cardiovascular: Regular rate/rhythm, Normal S1 S2 Capillary refill: <2 Seconds Gastrointestinal: Normal bowel sounds, Soft and benign Musculoskeletal: No swelling, No contractures Integumentary: No breakdown, No significant lesion Neurological: Normal speech, Normal strength at 5/5 x4 extr Assessment And Plan - Plan - Problems (Diagnosis) NSTEMI (non-ST elevated myocardial infarction) chest pain rule out [place] Current Visit: Yes Status: Acute chest pain rule out [place] Current Visit: Yes Status: Acute Acute respiratory failure secondary Current Visit: No Status: Acute decompensated heart failure Current Visit: No Status: Acute Pulmonary edema Current Visit: Yes Status: Acute End-stage renal disease on hemodialysis with fluid volume overload Current Visit: Yes Status: Acute Decompensated heart failure Current Visit: Yes Status: Acute history of GI bleed Current Visit: Yes Status: Acute - Plan Assessment -Admit to [facility], Acute on chronic heart failure -NSTEMI Chest pain rule out [place] Hypertensive urgency -Cardiology consulted Started on heparin drip -Trend troponins, BNP -Telemetry -Antihypertensives as needed Status post cardiac cath, unable to stent, plan to transfer to higher level of care -End-stage renal disease on hemodialysis, -Nephrology consulted for emergent dialysis -Trend kidney function, -Trend electrolytes replace electrolytes as needed Plan for daily dialysis -Acute hypoxic respiratory failure secondary to pulmonary edema, fluid volume overload, end-stage renal disease Pulmonary edema - chest x-ray shows interstitial pulmonary edema Currently 93% on 3 L History of GI bleed, PPI, Dr. Collins requested evaluation for cardiac clearance for cath tomorrow Insulin-dependent diabetes mellitus Hypoglycemia, -hypoglycemia per -Accu-Cheks, Full code Diet n.p.o. DVT heparin drip Discharge Plan: Home - Code Status/Comfort Care Code Status: Full Code Critical Care: No Time Spent Managing PTS Care (In Minutes): 35
[2024-10-19] MEDS: HYDRALAZINE HCL 20 MG/ML VIAL IV PRN (08:54)
[2024-10-19] MEDS: METOPROLOL TARTRATE 5 MG/5 ML INJ IV STA (10:13)
[2024-10-19] MEDS: carvediloL 25 MG TAB PO SCH (12:40)
[2024-10-19] MEDS: NITROGLYCERIN 0.4 MG/TAB SL ONE (13:23)
[2024-10-19] MEDS: NITROGLYCERIN 0.4 MG/TAB SL PRN (13:27)
--- NOTE | 2024-10-19 23:14 | PN ---
Date of Progress Note: 10/19/2024 Chief Complaint: End-stage renal disease, fcd-EC-orafzqwew myocardial infarction, chest pain, pang ry artery disease. History Of Present Illness: The patient is a 64-year-old man with history of hypertension, end-stage renal disease, chronic diastolic congestive heart failure, insulin-dependent diabetes mellitus. He presented to emergency room via EMS for shortness of breath and chest discomfort. The patient has mu ltiple admissions for shortness of breath previously related to congestive heart failure exacerbation with fluid overload and respiratory failure with pCO2 retention. During this admission, he was foun d to have elevated troponin up to 777 and he underwent cardiac catheterization, was found to have mul tifocal lesion due to coronary artery disease and he is to have PTCA today. He is complaining of clark e chest discomfort, was medicated with nitroglycerin and he remains on heparin drip. Review of Systems: Denies fever, chills. Denies nausea, vomiting. Physical Examination: Lungs: Clear to auscultation bilaterally. Heart: S1, S2. Abdomen: Soft, benign. Extremities: No edema. Impression And Plan: 1.End-stage renal disease, fluid overload. The patient received dialysis yesterday after IV contras t exposure. Ultrafiltration was obtained to control volemia. The patient remains euvolemic at this point. He underwent dialysis after IV contrast was used for cardiac catheterization and cardiac work up was done for acute myocardial infarction. 2.Hyponatremia, dilutional due to fluid overload, controlled with dialysis. Continue p.o. fluid res triction and low-sodium diet. 3.Coronary artery disease, por-GZ-xwcxywqma myocardial infarction. The patient is to have a PTCA. He is awaiting transfer to higher level of care. 4.Renal osteodystrophy. Monitor phosphorus level and continue binders. 5.Anemia due to chronic kidney disease. Monitor hemoglobin level. At this point, hemoglobin level is satisfactory. Recent blood work showed hemoglobin of 10.1. EB/MODL Voice ID: [id number] Report ID: [id number]
[2024-10-20] MEDS ORDERED: lisinopriL 20 MG TAB PO SCH (09:00)
--- NOTE | 2024-10-21 10:58 | EKG ---
Test Date: 2024-10-17 Test Time: 03:32:00 Alarm Service Technician: JEFFRY MEASUREMENT RESULTS: Intervals: Rate: 100 MT: 174 QRSD: 108 QT: 376 QTc: 485 Dexter: P: 33 MT: 174 QRS: 95 T: 3 INTERPRETIVE STATEMENTS: Normal sinus rhythm Rightward axis T wave abnormality, consider inferior ischemia Abnormal ECG Compared to ECG 10/06/2024 04:59:10 Atrial premature complex(es) no longer present T-wave abnormality still present Possible ischemia still present Electronically Signed On 10-21-24 10:51:58 CAMPUS PRESIDENT by Jaxon Lawson
[2024-10-22 15:10] VITALS: BP 144/71; TEMP 97.8
[2024-10-22 15:15] VITALS: O2SAT 93
== END 2024-10-19 19:40 | disposition short-term general hospital (02) | DRG 280 ==
LOC: ER 03:19 → 2ND 07:07
PROVIDERS: ADMIT Hospitalist; ATTEND Hospitalist
PROC: 4A023N7 Measurement of Cardiac Sampling and Pressure, Left Heart, Percutaneous Approach (ICD-10-PCS; principal; 2024-10-18)
PROC: B2111ZZ Fluoroscopy of Multiple Coronary Arteries using Low Osmolar Contrast (ICD-10-PCS; 2024-10-18)
DX: I21.4 Non-ST elevation (NSTEMI) myocardial infarction (principal); I50.33 Acute on chronic diastolic (congestive) heart failure; J81.0 Acute pulmonary edema; N18.6 End stage renal disease; J96.01 Acute respiratory failure with hypoxia; I13.2 Hypertensive heart and chronic kidney disease with heart failure and with stage 5 chronic kidney disease, or end stage renal disease; E87.1 Hypo-osmolality and hyponatremia; J44.1 Chronic obstructive pulmonary disease with (acute) exacerbation; D63.1 Anemia in chronic kidney disease; E11.22 Type 2 diabetes mellitus with diabetic chronic kidney disease; E87.70 Fluid overload, unspecified; Z99.2 Dependence on renal dialysis; G47.33 Obstructive sleep apnea (adult) (pediatric); Z79.4 Long term (current) use of insulin; I16.0 Hypertensive urgency; E11.649 Type 2 diabetes mellitus with hypoglycemia without coma; I25.10 Atherosclerotic heart disease of native coronary artery without angina pectoris; G47.00 Insomnia, unspecified; Z99.89 Dependence on other enabling machines and devices
CPT/HCPCS: 36415; 71045; 76937; 80048; 80053; 80061; 80076; 83735; 83880; 84100; 84132; 84484; 85025; 85347; 85610; 85730; 86850; 86900; 86901; 90935; 93005; 93454; 96374; 96375; 99152; 99153; 99285; C1725; C1893; J0360; J0461; J1200; J1644; J1940; J2003; J2250; J2405; J2470; J3010; J7040; Q9967

== ENCOUNTER 2024-11-29 10:56 | Emergency (ER) | payer OTHER ==
--- NOTE | 2024-11-29 11:34 | RAD REPORT ---
EXAM: CT brain without contrast HISTORY: fall out of chair, head/neck/back pain COMPARISON: 09/09/2021 TECHNIQUE: Multiple contiguous axial images were obtained and a CT of the brain without contrast. Sag ittal and coronal reformats were performed. One or more of the following dose reduction techniques were used: Automated exposure control, adjust ment of the mA and/or kV according to patient size, and/or iterative reconstruction. FINDINGS: There is acute subdural hematoma noted on the left along the left convexity measuring up to 6 mm maxi mum thickness left temporal region measuring up to 10 mm in maximum thickness and mild blood is seen along the left aspect of the falx. There is vpym-yx-swifn midline shift of 7 mm present. There i s mild edema seen in the left temporal lobe. 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 No depressed calvarial fracture. The visualized paranasal sinuses and mastoid air cells are essential ly clear. IMPRESSION: No evidence of acute intracranial abnormality. EXAM: CT of the cervical spine without contrast HISTORY: Neck pain, injury fall out of chair, head/neck/back pain TECHNIQUE: Multiple contiguous axial images were obtained in a CT of the cervical spine without contr ast. Sagittal and coronal reformats were performed. FINDINGS: The vertebral bodies demonstrate normal height and alignment. No evidence of acute fracture or subluxation.. Mild lower cervical spondylosis. Mild prevertebral thickening noted superiorly anterior to the C1-2 articulation. The posterior facets are well aligned. Normal alignment of the skull base with the cervical spine is seen. The lung apices are unremarkable. IMPRESSION: Acute subdural hematoma on the left as detailed above with 7 mm left to right midline shift. No acute cervical spine finding. The findings were communicated with Rodríguez Olguin MD at 11/29/2024 11:31 AM by telephone.
--- NOTE | 2024-11-29 11:44 | RAD REPORT ---
EXAM: CT CHEST, ABDOMEN AND PELVIS WITHOUT CONTRAST CLINICAL INDICATION: FALL TECHNIQUE: CT chest, abdomen and pelvis was performed without contrast, as per department protocol. A xial, sagittal and coronal reconstructions were obtained. One or more of the following dose reduction techniques were used: Automated exposure control, adjustment of the mA and/or kV according to patient size, and/or iterative reconstruction. Unless otherwise specified, incidental findings do not require dedicated imaging follow-up. Examination is limited by the lack of intravenous contrast material. COMPARISON: 10/29/2022 FINDINGS: LUNGS: Mild interstitial pulmonary edema suspected. PLEURA: Trace bilateral pleural effusions. MEDIASTINUM AND LYMPH NODES: No mediastinal mass or fluid collection. Normal size mediastinal, hilar, and axillary lymph nodes. OSSEOUS STRUCTURES AND CHEST WALL: Intact. LIVER: Normal in size and contour. No focal lesion or biliary dilatation. Cholecystectomy clips. PANCREAS: No mass, ductal dilation, or aftab-pancreatic fluid. SPLEEN: Normal size. No focal lesion. ADRENALS: Normal; no mass. KIDNEYS: Atrophic changes of both kidneys. 4.6 cm benign-appearing cyst superior left kidney. URINARY BLADDER: Normal contour. GASTROINTESTINAL TRACT: No bowel obstruction, free air, significant free fluid or abscess. There is mild diverticulosis coli of the sigmoid colon without diverticulitis. APPENDIX: Normal appendix. LYMPH NODES: No lymphadenopathy. MUSCULOSKELETAL: Mild multilevel degenerative changes. OTHER: Indeterminate metallic linear clip type structures in the stomach. IMPRESSION: Mild interstitial pulmonary edema/volume overload. Bilateral renal atrophy without hydronephrosis. No acute trauma-related abnormality.
--- NOTE | 2024-11-29 11:56 | EDPHYS ---
Physician Documentation [facility] Name: Alex Cagle Age: 64 yrs Sex: Male : 1960 Arrival Date: 11/29/2024 Time: 10:56 Bed 5 Private MD: ED Physician Rodríguez Olguin HPI: 11/29 11:00 This 64 yrs old Male presents to ER via Unassigned with complaints of fall. rn 11:01 Details of fall: The patient fell from seated position, out of a chair. Onset: The rn symptoms/episode began/occurred just prior to arrival. Associated injuries: The patient sustained injury to the head, neck injury, injury to the low back. Severity of symptoms: At their worst the symptoms were moderate, in the emergency department the symptoms are unchanged. The patient has not experienced similar symptoms in the past. Patient reports was at dialysis, waiting for his turn, was seated in chair and fell asleep. Staff noted that he fell out of chair, fell forward, struck right forehead. No seizure activity at site. Patient does not feel like he lost consciousness. Reports pain to head neck and lower back. No rib or chest pain. No abdominal pain. No extremity injury. Reports headache and nausea.. Historical: - Allergies: 11:11 NKA; ko1 - PMHx: 11:11 CHF; Diabetes - NIDDM; dialysis on M/W/F; ESRD; Hypertension; insomnia; ko1 - PSHx: 11:11 bilateral knee repairs; Left arm fistula; R shoulder; ko1 - Immunization history:: Adult Immunizations unknown. - Infectious Disease History:: Denies. - Family history:: not pertinent. - Social history:: Smoking status: unknown. - Hospitalizations: : No recent hospitalization is reported. ROS: 11:01 Constitutional: Negative for fever, chills, and weight loss, Neck: Positive for neck rn pain Cardiovascular: Negative for chest pain, palpitations, and edema, Respiratory: Negative for shortness of breath, cough, wheezing, and pleuritic chest pain, Abdomen/GI: Negative for abdominal pain, positive for nausea Back: Positive for lower back pain MS/Extremity: Negative for injury and deformity, Skin: Negative for injury, rash, and discoloration, Neuro: Positive for headache Exam: 11:01 Constitutional: This is a well developed, well nourished patient who is awake, alert, rn and in no acute distress. In c-collar Head/Face: Right frontal hematoma, 2.5 cm, no laceration or depression Eyes: Pupils equal round and reactive to light, extra-ocular motions intact. Neck: In c-collar, no midline cervical tenderness Chest/axilla: No rib tenderness or crepitus Cardiovascular: Regular rate and rhythm. No pulse deficits. Respiratory: No increased work of breathing, no retractions or nasal flaring. Abdomen/GI: Soft, nontender MS/ Extremity: Pulses equal, no cyanosis. Neuro: Awake and alert, GCS 15, oriented to person, place, time, and situation. Cranial nerves II-XII grossly intact. Motor strength 5/5 in all extremities. Sensory grossly intact. Vital Signs: 12:15 BP 181 / 93; Pulse 76; Resp 17; Temp 98; Pulse Ox 97% ; ko1 MDM: 10:58 Medical Screening Exam initiated rn 11:54 Differential diagnosis: closed head injury, contusion, fracture, Subdural hematoma, rn epidural hematoma. Data reviewed: vital signs, nurses notes, lab test result(s), radiologic studies, CT scan, and as a result, I will admit patient. Consideration of Admission/Observation Patient was admitted/placed on observation. Escalation of care including admission/observation considered. Counseling: I had a detailed discussion with the patient and/or guardian regarding the historical points, exam findings, and any diagnostic results supporting the discharge/admit diagnosis, lab results, radiology results, the need for further work-up and treatment in the hospital, the need to transfer to another facility, for higher level of care, [facility] does not immediately have the required specialist. ED course: CT shows subdural hematoma on the left side, mild shift. Neurologically intact and hemodynamically stable. Initiated transfer to [facility] for neurosurgery and trauma.. 11/29 11:28 Order name: CBC with Diff rn 11/29 11:28 Order name: Basic Metabolic Panel rn 11/29 11:28 Order name: Protime (+inr) rn 11/29 11:28 Order name: Ptt, Activated rn 11/29 11:03 Order name: Head C Spine Mpr Wo Con; Complete Time: 11:44 EDMS 11/29 11:03 Order name: Chest Abd Pelvis Wo Con; Complete Time: 11:44 EDMS 11/29 11:28 Order name: IV Start; Complete Time: 12:11 rn 11/29 12:01 Order name: Labs - recollect needed: all tubes; Complete Time: 12:17 ss Administered Medications: 12:08 Drug: Ondansetron IVP 4 mg IVP once; over 2 minutes Route: IVP; Site: right antecubital;ko1 12:17 Follow up: Response: No adverse reaction aa5 12:11 Drug: morphine IVP or IV 4 mg IVP once over 4 mins Route: IVP; Infused Over: 4 mins; ko1 Site: right antecubital; 12:17 Follow up: Response: No adverse reaction aa5 12:59 CANCELLED (Duplicate Order): piperacillin-tazobactam3.375 grams IVPB once over 60 mins; rn (mix in NS 100 mL) 12:59 CANCELLED (Duplicate Order): ns 0.9% 1000 ml IV at 1000 ml once; to be given as a bolus rn over 60 minutes Disposition Summary: 11/29/24 11:56 Transfer Ordered Notes: Transfer Location: [facility] rn Reason: Higher level of care rn Condition: Stable rn Problem: new rn Symptoms: are unchanged rn Accepting Physician: (11/29/24 13:41) ss Diagnosis - Traumatic subdural hemorrhage rn Forms: - Medication Reconciliation Form rn - SBAR form an/sqq 89(v)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 Total time: 35 minutes rn Signatures: Dispatcher [employer] EDTX Rodríguez Olguin MD MD rn Blanchard, Shelby RN RN ss Glory Mcnulty RN RN ko1 Nabila Morataya RN aa5 Corrections: (The following items were deleted from the chart) 11:01 10:59 Head C Spine Cap Wo Con+CT.RAD.BRZ ordered. EDTX EDMS 12:59 12:57 Piperacillin-Tazobactam IVPB 3.375 grams IVPB once over 60 mins; (mix in NS 100 rn mL) ordered. rn 12:59 12:57 NS 0.9% IV 1000 ml IV at 1000 ml once; to be given as a bolus over 60 minutes rn ordered. rn 12:59 12:57 ED course: Patient with possible colitis secondary to cirrhosis and ascites rn versus infection. Also with questionable aspiration versus aspiration pneumonia. Has elevated lactic acid but will not receive full 30/kg bolus given that he is cirrhotic on dialysis with ascites and chest x-ray images shows possible pulmonary edema already. Instead of 30/kg bolus will receive 0.5 L bolus of NS to be given as bolus and will reassess after that.. eleuterio 13:41 11:56 Dr. mcclellan ss
--- NOTE | 2024-11-29 11:56 | ER ---
Nurse's Notes [facility] Name: Alex Cagle Age: 64 yrs Sex: Male : 1960 Arrival Date: 11/29/2024 Time: 10:56 Bed 5 Private MD: Diagnosis: Traumatic subdural hemorrhage Presentation: 11/29 11:00 Chief complaint: EMS states: was at dialysis, fell asleep in the chair before being ko1 hooked up, fell forward onto floor striking head. Staff said he did loose consciousness briefly. Coronavirus screen: At this time, the client does not indicate any symptoms associated with coronavirus-19. Ebola Screen: No symptoms or risks identified at this time. Initial Sepsis Screen: Does the patient meet any 2 criteria? No. Patient's initial sepsis screen is negative. Does the patient have a suspected source of infection? No. Patient's initial sepsis screen is negative. Risk Assessment: Do you want to hurt yourself or someone else? Patient reports no desire to harm self or others. Onset of symptoms was November 29, 2024. 11:00 Method Of Arrival: EMS: [facility] ko1 11:00 Acuity: DEJAN 3 ko1 Triage Assessment: 11:11 General: Appears in no apparent distress. Behavior is calm, cooperative, appropriate ko1 for age. Pain: Complains of pain in top of head and forehead and neck. Historical: - Allergies: 11:11 NKA; ko1 - PMHx: 11:11 CHF; Diabetes - NIDDM; dialysis on M/W/F; ESRD; Hypertension; insomnia; ko1 - PSHx: 11:11 bilateral knee repairs; Left arm fistula; R shoulder; ko1 - Immunization history:: Adult Immunizations unknown. - Infectious Disease History:: Denies. - Family history:: not pertinent. - Social history:: Smoking status: unknown. - Hospitalizations: : No recent hospitalization is reported. Screenin:15 [facility] ED Fall Risk Assessment (Adult) History of falling in the last 3 months, ko1 including since admission Yes- single mechanical fall (1 pt) Confusion or Disorientation No (0 pts) Intoxicated or Sedated No (0 pts) Impaired Gait Yes (1 pt) Mobility Assist Device Used No (0 pt) Altered Elimination No (0 pt) Score/Fall Risk Level 0 - 2 = Low Risk Oriented to surroundings, Maintained a safe environment, Educated pt \T\ family on fall prevention, incl call for assistance when getting out of bed, Assessed \T\ reinforced patient's understanding of fall precautions, Provided non-skid footwear, Hourly rounding (assess needs \T\ fall precautionary measures) done. Abuse screen: Denies threats or abuse. Denies injuries from another. Nutritional screening: No deficits noted. Tuberculosis screening: No symptoms or risk factors identified. Assessment: 12:15 Neuro: No deficits noted. Cardiovascular: No deficits noted. Respiratory: No deficits ko1 noted. GI: No deficits noted. No signs and/or symptoms were reported involving the gastrointestinal system. : Reports anuric. EENT: No deficits noted. No signs and/or symptoms were reported regarding the EENT system. Derm: Bruising that is dark purple, on forehead. Musculoskeletal: No deficits noted. No signs and/or symptoms reported regarding the musculoskeletal system. Injury Description: Bruise sustained to forehead. Vital Signs: 12:15 BP 181 / 93; Pulse 76; Resp 17; Temp 98; Pulse Ox 97% ; ko1 ED Course: 10:57 Patient arrived in ED. rn 10:57 Rodríguez Olguin MD is Attending Physician. rn 11:11 Triage completed. ko1 11:11 Arm band placed on right wrist. Patient placed in an exam room, on a stretcher, on ko1 pulse oximetry, Patient notified of wait time. 11:18 Head C Spine Mpr Wo Con In Process Unspecified. EDMS 11:19 Chest Abd Pelvis Wo Con In Process Unspecified. EDMS 11:30 Glory Mcnulty, RN is Primary Nurse. ko1 11:53 Protime (+inr) Sent. ko1 11:53 Ptt, Activated Sent. ko1 11:53 Basic Metabolic Panel Sent. ko1 11:53 CBC with Diff Sent. ko1 12:15 Patient has correct armband on for positive identification. Bed in low position. Call ko1 light in reach. Side rails up X2. Provided Education on: labs, transfer. Client placed on continuous cardiac and pulse oximetry monitoring. NIBP monitoring applied. personnel monitor on. Door closed. Noise minimized. Lights dimmed. Warm blanket given. Pillow given. 12:15 No provider procedures requiring assistance completed. ko1 12:17 Lab(s) recollected, by me, sent to lab. aa5 13:09 Patient transferred, IV remains in place. ko1 Administered Medications: 12:08 Drug: Ondansetron IVP 4 mg IVP once; over 2 minutes Route: IVP; Site: right antecubital;ko1 12:17 Follow up: Response: No adverse reaction aa5 12:11 Drug: morphine IVP or IV 4 mg IVP once over 4 mins Route: IVP; Infused Over: 4 mins; ko1 Site: right antecubital; 12:17 Follow up: Response: No adverse reaction aa5 12:59 CANCELLED (Duplicate Order): piperacillin-tazobactam3.375 grams IVPB once over 60 mins; rn (mix in NS 100 mL) 12:59 CANCELLED (Duplicate Order): ns 0.9% 1000 ml IV at 1000 ml once; to be given as a bolus rn over 60 minutes Medication: 12:15 VIS not applicable for this client. ko1 Outcome: 11:56 ER care complete, transfer ordered by . rn 13:09 Transferred by ground EMS to [facility], Transfer form completed. ko1 13:09 Condition: stable 13:09 Instructed on the need for transfer, 13:41 Patient left the ED. ss Signatures: Dispatcher [employer] EDMS Rodríguez Olguin MD MD rn Calderon, Audri, RN RN aa5 Keily Barth RN RN ss Glory Mcnulty RN RN ko1 Corrections: (The following items were deleted from the chart) 13: 12:15 Patient transferred, IV remains in place. ko1 ko1
[2024-11-29] MEDS ORDERED: MORPHINE 4 MG/ML SYR ONE (12:00)
[2024-11-29] MEDS ORDERED: ONDANSETRON 4 MG/2 ML VIAL ONE (12:00)
[2024-11-29 12:03] LABS: Absolute Basophils 0.1 K/uL (0-0.5); Absolute Eosinophils 0.4 K/uL (0-0.5); Absolute Lymphocytes (CBC) 0.9 K/uL (0.7-4.9); Absolute Monocytes 0.6 K/uL (0.1-1.3); Eosinophils % 5.1 % (0-4.4); Hematocrit 29.8 % (39.6-49.0); Hemoglobin 9.9 g/dL (13.6-17.9); MCH 29.5 pg (27.0-35.0); MCHC 33.3 g/dL (32.0-36.0); MCV 88.6 fL (80-100); MPV 7.3 fL (7.6-11.3); Monocytes % 8.8 % (3.3-12.3); Neutrophils % 72.1 % (41.7-73.7); Platelets 237 thou/uL (152-406); RBC Red Blood Cell Count 3.37 M/uL (4.33-5.43); Red Cell Distribution Width 16.3 % (12.1-15.2)
[2024-11-29 12:42] LABS: PT Prothrombin Time 11.6 SECONDS (9.7-12.7); PTT, Activated Partial Thromb 34.1 SECONDS (24.3-36.9); Protime INR 1.11
[2024-11-29 13:09] LABS: Anion Gap 12.8 mEq/L (5.0-15.0); Potassium 3.8 mEq/L (3.5-5.1)
[2024-11-30 04:51] VITALS: BP 181/93; TEMP 98; O2SAT 97
== END 2024-11-29 13:41 | disposition short-term general hospital (02) ==
LOC: ER 10:56
DX: S06.5X0A Traumatic subdural hemorrhage without loss of consciousness, initial encounter (principal); W07.XXXA Fall from chair, initial encounter; E11.22 Type 2 diabetes mellitus with diabetic chronic kidney disease; I13.2 Hypertensive heart and chronic kidney disease with heart failure and with stage 5 chronic kidney disease, or end stage renal disease; I50.9 Heart failure, unspecified; N18.6 End stage renal disease; Z99.2 Dependence on renal dialysis
CPT/HCPCS: 85025; 80048; 36415; 85610; 85730; 70450; 71250; 72125; 74176; 96375; 96374; 99285; J2405

== ENCOUNTER 2024-12-19 20:51 | Emergency (ER) | payer OTHER ==
[2024-12-19] MEDS ORDERED: HYDROCODONE/APAP 5/325 MG TAB ONE (21:13)
--- NOTE | 2024-12-19 21:50 | RAD REPORT ---
EXAM: CT brain without contrast HISTORY: left scalp swelling COMPARISON: 11/29/2024 TECHNIQUE: Multiple contiguous axial images were obtained and a CT of the brain without contrast. Sag ittal and coronal reformats were performed. One or more of the following dose reduction techniques were used: Automated exposure control, adjust ment of the mA and/or kV according to patient size, and/or iterative reconstruction. FINDINGS: There is mild extra-axial fluid seen along the left demonstrating intermediate to elevated density. T his measures maximally 10 mm in thickness. This may represent mild subacute and chronic blood product. There is minimal left to right midline shift of 3-4 mm. There is a 18 mm thick fluid collect ion on the left scalp. This collection measures 8-9 cm in anterior posterior dimension. Large left-sided craniotomy noted. The visualized paranasal sinuses and mastoid air cells are essenti ally clear. Vertebral atherosclerosis. IMPRESSION: 10 mm thick left-sided extra-axial fluid collection is present with intermediate density and subtle a reas of increased density likely residual hygroma or hematoma. Slight omma-de-hyrmm midline shift suspected. Follow-up CT head surveillance of this collection may be considered if clinically indicate d. Large left scalp fluid collection suspected measuring 18 mm in thickness and 8-9 cm anterior posterio r dimension, presumably postoperative collection. Sterility is indeterminate however no obvious signs of infection.
--- NOTE | 2024-12-19 21:53 | RAD REPORT ---
EXAMINATION: CT MAXILLOFACIAL WITHOUT CONTRAST CLINICAL INDICATION: left facial and scalp swelling at post opeative incision TECHNIQUE: Axial images were obtained through the facial bones and orbits without intravenous contras t. Sagittal and coronal reconstructions were created from the data. One or more of the following dose reduction techniques were used: Automated exposure control, adjustment of the mA and/or kV accor ding to patient size, and/or iterative reconstruction. Unless otherwise specified, incidental findings do not require dedicated imaging follow-up. COMPARISON: No prior exam. FINDINGS: SOFT TISSUE: Large left scalp fluid collection as fully detailed on CT head report BONES: No evidence of fracture, dislocation, or aggressive osseous lesions. Large left-sided cranioto my postoperative changes.. ORBITS: The globes are intact. No intraorbital hemorrhage or mass. SINUSES: The visualized paranasal sinuses and mastoid air cells are essentially clear. IMPRESSION: No significant abnormal facial bone finding. Please reference report same day CT report for further d etails on left-sided scalp collection.
[2024-12-19] MEDS ORDERED: METOCLOPRAMIDE 5 MG TAB ONE (22:03)
[2024-12-19] MEDS ORDERED: TRAMADOL HCL 50 MG TAB ONE (22:03)
--- NOTE | 2024-12-19 22:41 | ER ---
Nurse's Notes [facility] Name: Alex Cagle Age: 64 yrs Sex: Male : 1960 Arrival Date: 12/19/2024 Time: 20:51 Bed 4 Private MD: Diagnosis: Left scalp moderate hematoma, acute postoperative hematoma and fluid collection left scalp, acute headache Presentation: 12/19 20:55 Chief complaint: Patient states: HEAD A FALL 3 WEEKS AGO AFTER DIALYSIS(ON BLOOD jj7 THINNERS). WAS TRANSFERRED TO [facility] FOR SURGERY FOR INTRACRANIAL HEMORRHAGE. NOW HAVING A HEADACHE AND LEFT SIDED HEAD SWELLING. Coronavirus screen: At this time, the client does not indicate any symptoms associated with coronavirus-19. Ebola Screen: No symptoms or risks identified at this time. Initial Sepsis Screen: Does the patient meet any 2 criteria? No. Patient's initial sepsis screen is negative. Does the patient have a suspected source of infection? No. Patient's initial sepsis screen is negative. Risk Assessment: Do you want to hurt yourself or someone else? Patient reports no desire to harm self or others. 20:55 Method Of Arrival: Wheelchair j7 20:55 Acuity: DEJAN 3 jj7 20:55 Onset of symptoms was December 19, 2024. rg5 Triage Assessment: 20:55 Headache History: Denies prior headaches. General: Appears in no apparent distress. jj7 uncomfortable, Behavior is calm, cooperative, appropriate for age. Neuro: Reports headache. Derm: SWELLING TO LEFT SIDE OF HEAD. 20:55 Pain: Complains of pain in HEAD. rg5 21:21 Pain: Quality of pain is described as aching, Pain began 2-3 days ago. Also complains rg5 of. Historical: - Allergies: 21:11 NKA; jj7 - PMHx: 21:11 CHF; Diabetes - NIDDM; dialysis on M/W/F; ESRD; Hypertension; insomnia; jj7 - PSHx: 21:11 bilateral knee repairs; Left arm fistula; R shoulder; jj7 - Immunization history:: Adult Immunizations up to date. - Infectious Disease History:: Denies. - Social history:: Smoking status: Patient denies any tobacco usage or history of. Patient/guardian denies using alcohol, the patient reports quitting approximately [address] drugs, IV drugs. - Family history:: not pertinent. Screenin:17 [facility] ED Fall Risk Assessment (Adult) History of falling in the last 3 months, rg5 including since admission Yes- single mechanical fall (1 pt) Confusion or Disorientation No (0 pts) Intoxicated or Sedated No (0 pts) Impaired Gait Yes (1 pt) Mobility Assist Device Used Yes (1 pt) Altered Elimination No (0 pt) Score/Fall Risk Level 3 or more points = High Risk Oriented to surroundings, Maintained a safe environment, Educated pt \T\ family on fall prevention, incl call for assistance when getting out of bed, Hourly rounding (assess needs \T\ fall precautionary measures) done, Used ambulatory aids as needed (educated on \T\ assisted with). Abuse screen: Denies threats or abuse. Nutritional screening: No deficits noted. Tuberculosis screening: No symptoms or risk factors identified. Assessment: 21:17 General: Appears in no apparent distress. comfortable, Behavior is calm, cooperative, rg5 appropriate for age. Pain: Complains of pain in LEFT TEMPORAL AREA Pain currently is 9 out of 10 on a pain scale. Quality of pain is described as aching. Neuro: Level of Consciousness is awake, alert, obeys commands, Oriented to person, place, time, situation. Cardiovascular: Denies chest pain, Patient's skin is warm and dry. Respiratory: Airway is patent Trachea midline Respiratory effort is unlabored, labored, Respiratory pattern is regular, symmetrical. GI: Abdomen is round non-distended. EENT: No deficits noted. Derm: Skin is intact, Skin is dry, Skin is normal, Skin temperature is warm. Musculoskeletal: Circulation, motion, and sensation intact. Range of motion: intact in all extremities. 22:08 Reassessment: No changes from previously documented assessment. Patient and/or family rg5 updated on plan of care and expected duration. Pain level reassessed. Patient is alert, oriented x 3, equal unlabored respirations, skin warm/dry/pink. Vital Signs: 20:55 BP 170 / 77; Pulse 64; Resp 18; Temp 98; Pulse Ox 98% ; Weight 94.35 kg; Height 5 ft. 6 jj7 in. ; 21:17 BP 168 / 81; Pulse 61; Resp 17; Pulse Ox 100% on R/A; Pain 9/10; rg5 22:08 BP 166 / 73; Pulse 64; Resp 18; Pulse Ox 98% on R/A; Pain 8/10; rg5 20:55 Body Mass Index 33.57 (94.35 kg, 167.64 cm) jj7 21:17 Pain Scale: Adult rg5 22:08 Pain Scale: Adult rg5 Elías Coma Score: 21:17 Eye Response: spontaneous(4). Motor Response: obeys commands(6). Verbal Response: rg5 oriented(5). Total: 15. 12/20 05:31 Eye Response: spontaneous(4). Motor Response: obeys commands(6). Verbal Response: sp4 oriented(5). Total: 15. 05:31 Eye Response: spontaneous(4). Motor Response: obeys commands(6). Verbal Response: sp4 oriented(5). Total: 15. ED Course: 12/19 20:53 Patient arrived in ED. im 20:55 Arm band placed on right wrist. Patient placed in an exam room, on a stretcher. j7 20:58 Robles Kennedy MD is Attending Physician. sp4 21:10 Duke Salazar, KATIANA is Primary Nurse. rg5 21:10 Triage completed. jj7 21:17 Patient has correct armband on for positive identification. Bed in low position. Call rg5 light in reach. Side rails up X2. Adult w/ patient. Client placed on continuous cardiac and pulse oximetry monitoring. NIBP monitoring applied. case monitor on. Pulse ox on. NIBP on. Door closed. Noise minimized. Warm blanket given. 21:17 No provider procedures requiring assistance completed. rg5 21:40 CT Head Brain wo Cont In Process Unspecified. EDMS 21:40 CT Facial Bones W/O Con In Process Unspecified. EDMS 22:35 Provided Education on: POST ER CARE. rg5 22:35 Patient did not have IV access during this emergency room visit. rg5 Administered Medications: 21:16 Drug: HYDROcodone-acetaminophen PO 5 mg-325 mg 2 tabs PO once Route: PO; rg5 21:30 Follow up: Response: No adverse reaction; Pain is decreased rg5 22:07 Drug: MetoCLOPramide PO 10 mg PO once Route: PO; rg5 22:35 Follow up: Response: No adverse reaction; Pain is decreased rg5 22:07 Drug: traMADol PO 50 mg PO once Route: PO; rg5 22:35 Follow up: Response: No adverse reaction; Pain is decreased rg5 Medication: 21:17 VIS not applicable for this client. rg5 Outcome: 22:41 Discharge ordered by . sp4 22:54 Discharged to home via wheelchair, rg5 22:54 Condition: stable 22:54 Discharge instructions given to patient, family, Instructed on discharge instructions, follow up and referral plans. Demonstrated understanding of instructions, follow-up care, medications, Prescriptions given X 3, 22:54 Patient left the ED. rg5 Signatures: Dispatcher [employer] Olivia Levy RN RN jjRobles Nguyễn MD MD sp4 Sabi Appiah Rommel, RN RN rg5
--- NOTE | 2024-12-19 22:41 | EDPHYS ---
Physician Documentation [facility] Name: Alex Cagle Age: 64 yrs Sex: Male : 1960 Arrival Date: 12/19/2024 Time: 20:51 Bed 4 Private MD: ED Physician Robles Kennedy HPI: 12/19 20:58 This 64 yrs old Male presents to ER via Unassigned with complaints of sp4 Headache, Head swelling. 12/20 05:31 64-year-old male presents with acute left facial and scalp swelling associated with sp4 3-week-old postoperative incision.. Based on CT report 11/29/2024 patient sustained acute left subdural hematoma and had to be airlifted to [facility] for acute craniotomy , - CT report from prior medical record - acute subdural hematoma on the left as detailed above with 7 mm left to right midline shift. No acute cervical spine finding. 11/29/2024 - . Patient states that today he developed worsening swelling to the left scalp. Patient also complains of headache. Patient has left scalp postoperative incision with lilian in place. Incision appears to be in healing stages. Historical: - Allergies: 12/19 21:11 NKA; jj7 - PMHx: 21:11 CHF; Diabetes - NIDDM; dialysis on M//; ESRD; Hypertension; insomnia; jj7 - PSHx: 21:11 bilateral knee repairs; Left arm fistula; R shoulder; jj7 - Immunization history:: Adult Immunizations up to date. - Infectious Disease History:: Denies. - Social history:: Smoking status: Patient denies any tobacco usage or history of. Patient/guardian denies using alcohol, the patient reports quitting approximately [address], [address] drugs, IV drugs. - Family history:: not pertinent. ROS: 12/20 05:31 Constitutional: Negative for fever, chills, and weight loss, positive headache positive sp4 for left scalp swelling All other systems are negative, Exam: 05:31 Constitutional: This is a well developed, well nourished patient who is awake, alert, sp4 and in no acute distress. Head/Face: Normocephalic, patient has left scalp large postoperative incision with lilian in place. Incision is not healing stages. There is left scalp swelling consistent with hematoma Eyes: Pupils equal round and reactive to light, extra-ocular motions intact. Lids and lashes normal. Conjunctiva and sclera are not injected. Cornea within normal limits. Periorbital areas with no swelling, redness, or edema. ENT: Nares patent. No nasal discharge, no septal abnormalities noted. Tympanic membranes are normal and external auditory canals are clear. Oropharynx with no redness, swelling, or masses, exudates, or evidence of obstruction, uvula midline. Mucous membranes moist. Neck: Trachea midline, no thyromegaly or masses palpated, and no cervical lymphadenopathy. Supple, full range of motion without nuchal rigidity, or vertebral point tenderness. Chest/axilla: Normal chest wall appearance and motion. Nontender with no deformity. No lesions are appreciated. Cardiovascular: Regular rate and rhythm with a normal S1 and S2. No gallops, murmurs, or rubs. Normal PMI, no JVD. No pulse deficits. Respiratory: Lungs have equal breath sounds bilaterally, clear to auscultation and percussion. No rales, rhonchi or wheezes noted. No increased work of breathing, no retractions or nasal flaring. Abdomen/GI: Soft, with normal bowel sounds. No distension or tympany. No guarding or rebound. No evidence of tenderness throughout. Back: No spinal tenderness. No costovertebral tenderness. Skin: Warm, dry with normal turgor. Normal color with no rashes, no lesions, and no evidence of cellulitis. MS/ Extremity: Pulses equal, no cyanosis. Neurovascular intact. Full, normal range of motion. Neuro: Awake and alert, GCS 15, oriented to person, place, time, and situation. Cranial nerves II-XII grossly intact. Motor strength 5/5 in all extremities. Sensory grossly intact. Psych: Awake, alert, with orientation to person, place and time. Behavior, mood, and affect are within normal limits Vital Signs: 12/19 20:55 BP 170 / 77; Pulse 64; Resp 18; Temp 98; Pulse Ox 98% ; Weight 94.35 kg; Height 5 ft. 6 jj7 in. ; 21:17 BP 168 / 81; Pulse 61; Resp 17; Pulse Ox 100% on R/A; Pain 9/10; rg5 22:08 BP 166 / 73; Pulse 64; Resp 18; Pulse Ox 98% on R/A; Pain 8/10; rg5 20:55 Body Mass Index 33.57 (94.35 kg, 167.64 cm) jj7 21:17 Pain Scale: Adult rg5 22:08 Pain Scale: Adult rg5 [place] Coma Score: 21:17 Eye Response: spontaneous(4). Motor Response: obeys commands(6). Verbal Response: rg5 oriented(5). Total: 15. 12/20 05:31 Eye Response: spontaneous(4). Motor Response: obeys commands(6). Verbal Response: sp4 oriented(5). Total: 15. 05:31 Eye Response: spontaneous(4). Motor Response: obeys commands(6). Verbal Response: sp4 oriented(5). Total: 15. MDM: 12/19 22:41 Medical Screening Exam initiated sp4 12/20 05:31 Differential diagnosis: hypertensive headache, migraine, tension headache, traumatic sp4 injuries, vasomotor headache. Data reviewed: vital signs, nurses notes, radiologic studies, CT scan. ED course: EXAM: CT brain without contrast HISTORY: left scalp swelling COMPARISON: 11/29/2024 TECHNIQUE: Multiple contiguous axial images were obtained and a CT of the brain without contrast. Sagittal and coronal reformats were performed. One or more of the following dose reduction techniques were used: Automated exposure control, adjustment of the mA and/or kV according to patient size, and/or iterative reconstruction. FINDINGS: There is mild extra-axial fluid seen along the left demonstrating intermediate to elevated density. This measures maximally 10 mm in thickness. This may represent mild subacute and chronic blood product. There is minimal left to right midline shift of 3-4 mm. There is a 18 mm thick fluid collection on the left scalp. This collection measures 8-9 cm in anterior posterior dimension. Large left-sided craniotomy noted. The visualized paranasal sinuses and mastoid air cells are essentially clear. Vertebral atherosclerosis. IMPRESSION: 10 mm thick left-sided extra-axial fluid collection is present with intermediate density and subtle areas of increased density likely residual hygroma or hematoma. Slight [id number] midline shift suspected. Follow-up CT head surveillance of this collection may be considered if clinically indicated. Large left scalp fluid collection suspected measuring 18 mm in thickness and 8-9 cm anterior posterior dimension, presumably postoperative collection. Sterility is indeterminate however no obvious signs of infection. . ED course: EXAMINATION: CT MAXILLOFACIAL WITHOUT CONTRAST CLINICAL INDICATION: left facial and scalp swelling at post opeative incision TECHNIQUE: Axial images were obtained through the facial bones and orbits without intravenous contrast. Sagittal and coronal reconstructions were created from the data. One or more of the following dose reduction techniques were used: Automated exposure control, adjustment of the mA and/or kV according to patient size, and/or iterative reconstruction. Unless otherwise specified, incidental findings do not require dedicated imaging follow-up. COMPARISON: No prior exam. FINDINGS: SOFT TISSUE: Large left scalp fluid collection as fully detailed on CT head report BONES: No evidence of fracture, dislocation, or aggressive osseous lesions. Large left-sided craniotomy postoperative changes.. ORBITS: The globes are intact. No intraorbital hemorrhage or mass. SINUSES: The visualized paranasal sinuses and mastoid air cells are essentially clear. IMPRESSION: No significant abnormal facial bone finding. Please reference report same day CT report for further details on left-sided scalp collection. Reported By: Kvng Massey. 12/19 21:03 Order name: CT Head Brain wo Cont; Complete Time: 21:57 sp4 12/19 21:04 Order name: CT Facial Bones W/O Con; Complete Time: 21:57 sp4 Administered Medications: 12/19 21:16 Drug: HYDROcodone-acetaminophen PO 5 mg-325 mg 2 tabs PO once Route: PO; rg5 21:30 Follow up: Response: No adverse reaction; Pain is decreased rg5 22:07 Drug: MetoCLOPramide PO 10 mg PO once Route: PO; rg5 22:35 Follow up: Response: No adverse reaction; Pain is decreased rg5 22:07 Drug: traMADol PO 50 mg PO once Route: PO; rg5 22:35 Follow up: Response: No adverse reaction; Pain is decreased rg5 Disposition Summary: 12/19/24 22:41 Discharge Ordered Notes: Location: Home sp4 Problem: new sp4 Symptoms: have improved sp4 Condition: Stable sp4 Diagnosis - Left scalp moderate hematoma, acute postoperative hematoma and fluid collection sp4 left scalp, acute headache Followup: sp4 - With: Private Physician - When: 7 - 10 days - Reason: Recheck today's complaints Discharge Instructions: - Discharge Summary Sheet sp4 - Hematoma, [id number] sp4 Forms: - Patient Portal Instructions sp4 Prescriptions: - Reglan 10 mg Oral tablet - take 1 tablet ORAL route every 8 hours PRN nausea; 20 tablet; Refills: 0, sp4 Product Selection Permitted - Tramadol 50 mg Oral tablet - take 1 tablet ORAL route every 8 hours as needed; 20 tablet; Refills: 0, sp4 Product Selection Permitted - methocarbamol 750 mg Oral tablet - take 1 tablet ORAL route every 8 hours for 5 days PRN pain; 30 tablet; Refills: sp4 0, Product Selection Permitted Signatures: Dispatcher [employer] Olivia Levy RN RN jj7 Robles Kennedy MD MD sp4 Duke Salazar RN RN rg5
[2024-12-19 23:14] VITALS: TEMP 98
[2024-12-19 23:17] VITALS: BP 166/73; O2SAT 98
== END 2024-12-19 22:54 | disposition home or self-care (01) ==
LOC: ER 20:51
DX: L76.32 Postprocedural hematoma of skin and subcutaneous tissue following other procedure (principal); R51.9 Headache, unspecified; Z98.890 Other specified postprocedural states
CPT/HCPCS: 70450; 70486; 76377; 99284

== ENCOUNTER 2024-12-24 18:31 | Inpatient (IN) | payer OTHER ==
--- NOTE | 2024-12-24 20:00 | RAD REPORT ---
EXAMINATION: ONE VIEW CHEST XR CLINICAL INDICATION: DYSPNEA TECHNIQUE: Frontal chest projection is submitted. Examination is limited by patient positioning and t echnique. COMPARISON: 10/17/2024 FINDINGS: Moderate pulmonary edema suspected. The heart is moderately enlarged in size. No displaced fractures identified. IMPRESSION: Moderate CHF suspected.
[2024-12-24] MEDS ORDERED: ONDANSETRON 4 MG/2 ML VIAL ONE (20:18)
[2024-12-24] MEDS ORDERED: MORPHINE 4 MG/ML SYR ONE (20:18)
[2024-12-24 20:22] LABS: PT Prothrombin Time 12.4 SECONDS (10-13.0); Protime INR 1.09
[2024-12-24 20:39] LABS: Absolute Eosinophils 0.2 K/uL (0-0.5); Absolute Lymphocytes (CBC) 0.6 K/uL (0.7-4.9); Absolute Monocytes 0.6 K/uL (0.1-1.3); Absolute Neutrophil 5.5 K/uL (1.8-8.0); Basophils % 0.6 % (0-1.3); Hematocrit 23.4 % (39.6-49.0); MCH 30.5 pg (27.0-35.0); MCHC 34.1 g/dL (32.0-36.0); MCV 89.5 fL (80-100); MPV 7.7 fL (7.6-11.3); Monocytes % 8.5 % (3.3-12.3); Neutrophils % 78.9 % (41.7-73.7); Platelets 178 thou/uL (152-406); RBC Red Blood Cell Count 2.61 M/uL (4.33-5.43); Red Cell Distribution Width 17.1 % (12.1-15.2)
[2024-12-24 20:44] LABS: ALT/SGPT 21 U/L (16-61); AST/SGOT 21 U/L (15-37); Albumin/Globulin Ratio 0.8 (1.1-1.8); Alkaline Phosphatase 113 U/L (45-117); Anion Gap 13.3 mEq/L (5.0-15.0); BUN Blood Urea Nitrogen 34 mg/dL (7-18); Bicarbonate 25 mEq/L (21-32); Bilirubin Direct < 0.2 mg/dL (0-0.2); Bilirubin Indirect, Calculated 0.3 mg/dL (0.2-0.8); Bilirubin Total 0.5 mg/dL (0.2-1.0); Globulin 3.6 g/dL (2.3-3.5); Glomerular Filtration Rate 11 ml/min (=/>90); Glucose Level 90 mg/dL (74-106); Magnesium 1.9 mg/dL (1.6-2.4); Potassium 4.3 mEq/L (3.5-5.1); Protein, Total 6.6 g/dL (6.4-8.2); Sodium Level 129 mEq/L (136-145)
[2024-12-24 21:05] LABS: Influenza A Ag Negative; Influenza B Ag Negative; SARS-CoV-2 Antigen Rapid Res Negative (Negative)
[2024-12-24] MEDS ORDERED: HYDROCODONE/APAP 10/325 TAB ONE (21:24)
--- NOTE | 2024-12-24 21:31 | EDPHYS ---
Physician Documentation [facility] Name: Alex Cagle Age: 64 yrs Sex: Male : 1960 Arrival Date: 12/24/2024 Time: 18:31 Bed 26 Private MD: ED Physician Boo White HPI: 12/24 22:17 This 64 yrs old Male presents to ER via Wheelchair with complaints of Shortness Of sb4 Breath, Body Pain. 22:17 Patient complains of shortness of breath and pain over. States that he had dialysis sb4 yesterday and was told he was 20 pounds over his normal weight. Was dialyzed normally and told him to come back the next day to have additional dialysis. States that he was unable to go in for that because his body was hurting so badly. Historical: - Allergies: 18:45 NKA; iw - PMHx: 18:45 Diabetes - NIDDM; CHF; ESRD; dialysis on M/W/F; insomnia; Hypertension; iw - PSHx: 18:45 bilateral knee repairs; Left arm fistula; R shoulder; iw ROS: 22:17 Cardiovascular: Negative for chest pain, palpitations, and edema, sb4 22:17 Constitutional: Positive for body aches, malaise, 22:17 Respiratory: Positive for shortness of breath, at rest. 22:17 All other systems are negative, Exam: 22:17 Head/Face: Normocephalic, atraumatic. Eyes: Extra-ocular motions intact. Periorbital sb4 areas with no swelling, redness, or edema. ENT: Mucous membranes moist. Cardiovascular: Regular rate and rhythm with a normal S1 and S2. Skin: Warm, dry with normal turgor. Normal color with no rashes, no lesions, and no evidence of cellulitis. 22:17 Constitutional: The patient appears alert, awake, uncomfortable, 22:17 Respiratory: mild respiratory distress is noted, Respirations: labored breathing, Breath sounds: rhonchi, that are moderate, are scattered, Vital Signs: 18:43 BP 183 / 80; Pulse 71; Resp 18; Temp 97.9; Pulse Ox 95% on R/A; Weight 90.72 kg; Height iw 5 ft. 6 in. ; Pain 9/10; 21:00 BP 176 / 84; Pulse 82; Resp 15; Pulse Ox 95% ; cm10 22:00 BP 156 / 79; Pulse 68; Resp 20; Pulse Ox 92% ; me1 18:43 Body Mass Index 32.28 (90.72 kg, 167.64 cm) iw 18:43 Pain Scale: Adult iw MDM: 18:51 Medical Screening Exam initiated sb4 22:19 Data reviewed: vital signs, nurses notes, lab test result(s), EKG, radiologic studies, sb4 and as a result, I will admit patient. Consideration of Admission/Observation Patient was admitted/placed on observation. Counseling: I had a detailed discussion with the patient and/or guardian regarding the historical points, exam findings, and any diagnostic results supporting the discharge/admit diagnosis, the presence of at least one elevated blood pressure reading (>120/80) during this emergency department visit, lab results, radiology results, the need for further work-up and treatment in the hospital. 12/24 19:05 Order name: Basic Metabolic Panel; Complete Time: 20:45 sb4 12/24 19:05 Order name: CBC with Diff; Complete Time: 20:43 sb4 12/24 19:05 Order name: LFT's; Complete Time: 20:45 sb4 12/24 19:05 Order name: Magnesium; Complete Time: 20:45 sb4 12/24 19:05 Order name: NT PRO-BNP; Complete Time: 20:45 sb4 12/24 19:05 Order name: PT-INR; Complete Time: 20:23 sb4 12/24 19:05 Order name: Troponin HS; Complete Time: 20:45 sb4 12/24 19:05 Order name: COVID-19 Ag + Flu A+B Ag; Complete Time: 21:13 sb4 12/24 22:16 Order name: Urinalysis w/ reflexes EDMS 12/24 22:16 Order name: Basic Metabolic Panel EDMS 12/24 22:16 Order name: Basic Metabolic Panel; Complete Time: 13:07 EDMS 12/24 22:16 Order name: CBC with Automated Diff EDMS 12/24 22:16 Order name: CBC with Automated Diff; Complete Time: 13:07 EDMS 12/24 19:05 Order name: XRAY Chest (1 view); Complete Time: 20:02 sb4 12/24 19:05 Order name: EKG; Complete Time: 19:06 sb4 12/24 22:16 Order name: CONS Physician Consult EDMS 12/24 19:05 Order name: Cardiac monitoring; Complete Time: 19:26 sb4 12/24 19:05 Order name: EKG - Nurse/Tech; Complete Time: 19:27 sb4 12/24 19:05 Order name: IV Saline Lock; Complete Time: 19:50 sb4 12/24 19:05 Order name: Labs collected and sent; Complete Time: 19:50 sb4 12/24 19:05 Order name: O2 Per Protocol; Complete Time: 19:27 sb4 12/24 19:05 Order name: O2 Sat Monitoring; Complete Time: :27 sb4 EC: Rate is 71 beats/min. Rhythm is regular, Normal Sinus Rhythm. NC interval is normal at sb4 196 msec. QRS interval is normal at 94 msec. QT interval is normal at 424 msec. No Q waves. T waves are Normal. No ST changes noted. Clinical impression: Normal ECG. Interpreted by me. Reviewed by me. Administered Medications: 20:39 Drug: morphine IVP or IV 4 mg IVP once over 4 mins Route: IVP; Infused Over: 4 mins; cm10 Site: right forearm; 21:31 Follow up: Response: No adverse reaction; No change in condition cm10 20:39 Drug: Ondansetron IVP 4 mg IVP once; over 2 minutes Route: IVP; Site: right forearm; cm10 21:31 Follow up: Response: No adverse reaction; No change in condition cm10 21:33 Drug: [place] PO 10 mg-325 mg 1 tabs PO once Route: PO; cm10 Disposition Summary: 12/24/24 21:30 Hospitalization Ordered Notes: Hospitalization Status: Inpatient Admission sb4 Provider: Lamberto Ascencio sb4 Condition: Fair sb4 Problem: new sb4 Symptoms: are unchanged sb4 Bed/Room Type: Standard sb4 Location: Telemetry/MedSurg (Inpatient)(12/25/24 10:53) Room Assignment: [facility](12/25/24 10:53) Diagnosis - Acute pulmonary edema sb4 - End stage renal disease sb4 - Dyspnea sb4 Forms: - Medication Reconciliation Form sb4 - SBAR form sb4 - Leadership Thank You Letter sb4 Signatures: Dispatcher [employer] Va Mensah, RN RN Keily Barth, KATIANA RN ss Edith Alberts RN RN [email or web address] Adrienne Sky PA-C PA-C 4 Livier Chilel RN RN cm10 Corrections: (The following items were deleted from the chart) : 21:30 Telemetry/MedSurg (Inpatient) sb4 lg3 : 21:30 sb4 lg3 12/25 10:53 12/24 21:38 [facility] ER HOLD lg3 ss 12/25 10:53 12/24 21:38 ERHOLD- lg3 ss
--- NOTE | 2024-12-24 21:31 | ER ---
Nurse's Notes [facility] Name: Alex Cagle Age: 64 yrs Sex: Male : 1960 Arrival Date: 12/24/2024 Time: 18:31 Bed 26 Private MD: Diagnosis: Acute pulmonary edema;End stage renal disease;Dyspnea Presentation: 12/24 18:43 Chief complaint: Patient states: he was over 20 lbs at dialysis yesterday and he was iw supposed to go back today and he could not go because he was sick to his stomach , and he is hurting all over. Coronavirus screen: At this time, the client does not indicate any symptoms associated with coronavirus-19. Ebola Screen: No symptoms or risks identified at this time. Initial Sepsis Screen: Does the patient meet any 2 criteria? No. Patient's initial sepsis screen is negative. Does the patient have a suspected source of infection? No. Patient's initial sepsis screen is negative. Risk Assessment: Do you want to hurt yourself or someone else? Patient reports no desire to harm self or others. Onset of symptoms was December 24, 2024. 18:43 Method Of Arrival: Wheelchair iw 18:43 Acuity: DEJAN 3 iw Historical: - Allergies: 18:45 NKA; iw - PMHx: 18:45 Diabetes - NIDDM; CHF; ESRD; dialysis on M/W/F; insomnia; Hypertension; iw - PSHx: 18:45 bilateral knee repairs; Left arm fistula; R shoulder; iw Screenin:[birth year] [facility] ED Fall Risk Assessment (Adult) History of falling in the last 3 months, cm10 including since admission Yes- single mechanical fall (1 pt) Confusion or Disorientation No (0 pts) Intoxicated or Sedated No (0 pts) Impaired Gait Yes (1 pt) Mobility Assist Device Used Yes (1 pt) Altered Elimination No (0 pt) Score/Fall Risk Level 3 or more points = High Risk Oriented to surroundings, Maintained a safe environment, Hourly rounding (assess needs \T\ fall precautionary measures) done. Abuse screen: Denies threats or abuse. Denies injuries from another. Nutritional screening: No deficits noted. Tuberculosis screening: No symptoms or risk factors identified. Assessment: 19:30 General: Appears uncomfortable, Behavior is calm, cooperative. cm10 19:30 Pain: Complains of pain in All over body Pain currently is 9 out of 10 on a pain scale. cm10 Neuro: No deficits noted. Level of Consciousness is awake, alert, obeys commands, Oriented to person, place, time, situation, Appropriate for age. Cardiovascular: Patient's skin is warm and dry. Rhythm is regular. Respiratory: Reports shortness of breath. Respiratory: No deficits noted. Airway is patent Respiratory effort is labored, Respiratory pattern is tachypnea. 21:00 Reassessment: Patient appears in no apparent distress at this time. Patient and/or cm10 family updated on plan of care and expected duration. Pain level reassessed. Patient is alert, oriented x 3, equal unlabored respirations, skin warm/dry/pink. Vital Signs: 18:43 BP 183 / 80; Pulse 71; Resp 18; Temp 97.9; Pulse Ox 95% on R/A; Weight 90.72 kg; Height iw 5 ft. 6 in. ; Pain 9/10; 21:00 BP 176 / 84; Pulse 82; Resp 15; Pulse Ox 95% ; cm10 22:00 BP 156 / 79; Pulse 68; Resp 20; Pulse Ox 92% ; me1 18:43 Body Mass Index 32.28 (90.72 kg, 167.64 cm) iw 18:43 Pain Scale: Adult iw ED Course: 18:36 Patient arrived in ED. cj3 18:46 Triage completed. iw 18:46 Arm band placed on. iw 18:51 Adrienne Sky [facility]-C [facility]. sb4 18:51 Boo White MD is Attending Physician. sb4 19:50 Accessed ,peripheral vein via ultrasound, utilizing static ultrasound technique Blood cm10 collected. Clean \T\ dry. Dressing intact. Good blood return. Flushes easily. 20 g right forearm. 19:58 XRAY Chest (1 view) In Process Unspecified. EDMS 20:09 Livier Chilel, KATIANA is Primary Nurse. cm10 20:59 Patient has correct armband on for positive identification. Bed in low position. Call cm10 light in reach. Side rails up X2. Provided Education on: ER process and procedures.. Client placed on continuous cardiac and pulse oximetry monitoring. NIBP monitoring applied. cardiac monitor technician on. 21:29 Lamberto Ascencio MD is Hospitalizing Provider. sb4 Administered Medications: 20:39 Drug: morphine IVP or IV 4 mg IVP once over 4 mins Route: IVP; Infused Over: 4 mins; cm10 Site: right forearm; 21:31 Follow up: Response: No adverse reaction; No change in condition cm10 20:39 Drug: Ondansetron IVP 4 mg IVP once; over 2 minutes Route: IVP; Site: right forearm; cm10 21:31 Follow up: Response: No adverse reaction; No change in condition cm10 21:33 Drug: [place] PO 10 mg-325 mg 1 tabs PO once Route: PO; cm10 Medication: 21:00 VIS not applicable for this client. cm10 Outcome: 21:30 Decision to Hospitalize by Provider. sb4 12/25 12:15 Patient left the ED. bp Signatures: Dispatcher [employer] Va Mensah RN RN iw Henok Pinto RN Adrienne Taylor, PA-C PA-C sb4 Livier Chilel RN RN [facility] Rupinder Nicole RN RN me1 Ary Francis cj3 Corrections: (The following items were deleted from the chart) 12/24 18:46 18:43 Chief complaint: Patient states: he was over 20 lbs at dialysis yesterday and he iw was supposed to go back today and he could not go because he was sick to his stomach , and he is hurting all over iw 18:46 18:43 Pulse 71bpm; Resp 18bpm; Pulse Ox 95% RA; Temp 97.9F; iw iw 18:47 18:43 Pulse 71bpm; Resp 18bpm; Pulse Ox 95% RA; Temp 97.9F; 90.72 kg; Height 5 ft. 6 iw in.; BMI: 32.2; Pain 9/10, Adult; iw
--- NOTE | 2024-12-24 22:16 | P.HP ---
Certification for Inpatient Patient admitted to: Observation With expected LOS: <2 Midnights Patient will require the following post-hospital care: None Practitioner: I am a practitioner with admitting privileges, knowledge of patient current condition, hospital course, and medical plan of care. Services: Services provided to patient in accordance with Admission requirements found in Title 42 Section 412.3 of the Code of Federal Regulations Patient History Date of Service: 12/25/24 Reason for admission: ESRD, volume overload. History of Present Illness: 64 y o male pt with hx of HTN, DM 2, HLD, CHF and ESRD on HD MWF schedule admitted for management of vo overload. he reports chest discomfort and sob and he was to have repeat HD session today for volume management. he was seen in the ED with CXR findings of pulm edema and he was asked to be admitted for inpt care. He denies any n/v, diarrhea or worsening chest pain. Allergies No Known Allergies Allergy (Verified 01/01/21 21:09) Home Medications: carvediloL [Coreg*] 25 mg PO BID 30 Days #60 tab 06/06/24 Zolpidem Tartrate [Ambien] 10 mg PO BEDTIME PRN PRN 09/01/24 Acetaminophen with Codeine [Acetaminophen-Cod #4 Tablet] 1 each PO Q1D PRN 10/06/24 lisinopriL [Zestril] 20 mg PO DAILY 10/06/24 Aspirin [Aspirin EC] 81 mg PO DAILY #30 10/11/24 Hydralazine [Apresoline*] 25 mg PO TID tab 10/11/24 Pantoprazole [Protonix Tab*] 40 mg PO DAILY #14 tab 10/11/24 Amlodipine Besylate/Benazepril [Amlodipine-Benazepril 10-20 mg] 10 - 20 mg PO TID 10/18/24 Sucroferric Oxyhydroxide [Velphoro] 500 mg PO DIRECTED 10/18/24 - Past Medical/Surgical History Diabetic: Yes -: End-stage renal disease on hemodialysis -: Hypertension -: Type 2 Diabetes -: Chronic IJ blood clot -: CHF -: Peritoneal dialysis port -: shoulder surgery -: left upper arm fistula -: Knee and shoulder surgery Psychosocial/ Personal History: Patient with 5 children. - Family History Father -: Heart disease - Social History Alcohol use: No CD- Drugs: No Caffeine use: Yes Review of Systems Eyes: Unremarkable ENT: Unremarkable Respiratory: Shortness of Breath Cardiovascular: Chest Pain Gastrointestinal: Unremarkable Genitourinary: Unremarkable Musculoskeletal: Unremarkable Integumentary: Unremarkable Neurological: Unremarkable Lymphatics: Unremarkable Physical Examination - Physical Exam General: Alert, Oriented x3 HEENT: Atraumatic Neck: Supple Respiratory: Diminished Cardiovascular: Regular rate/rhythm, Normal S1 S2 Gastrointestinal: Soft and benign Musculoskeletal: No swelling Neurological: Normal speech, Normal strength at 5/5 x4 extr - Studies Laboratory Data (last 24 hrs) 12/24/24 12/24/24 12/24/24 19:53 19:53 19:53 WBC 7.00 Hgb 8.0 L Hct 23.4 L Plt Count 178 PT 12.4 INR 1.09 Sodium 129 L Potassium 4.3 BUN 34 H Creatinine 5.44 H Glucose 90 Magnesium 1.9 Total Bilirubin 0.5 AST 21 ALT 21 Alkaline Phosphatase 113 Assessment and Plan - Plan ESRD: he has evidence of vol overload and he has significant discomfort. he was bee admitted for volume management via HD. Nephrology has been consulted. we will follow clinical course. we will continue on renal diet. Volume overload: Deemed due to ESRD state and needing extra fluid removal. Nephrology on board. Hypertension: we will follow vitals and continue outpt antihypertensive meds. Anemia of renal disease: Low Hb noted at 8.0. we will continue management as per nephrology. Prophylaxis: Hepartin for DVT prophylaxis: Code status: Full code. Disposition: we will have his vol overloaded state addressed and he will be dc as per nephrology recs. - Advance Directives Does patient have a Living Will: No Does patient have a Durable POA for Healthcare: No
[2024-12-25] MEDS ORDERED: HEPARIN 5000 UNIT/ML 1 ML VIAL ONE ×2 (00:47→09:28)
[2024-12-25] MEDS: HEPARIN 5000 UNIT/ML 1 ML VIAL SQ SCH (00:50)
[2024-12-25] MEDS ORDERED: ACETAMINOPHEN 325 MG TABLET ONE (04:58)
[2024-12-25] MEDS: ACETAMINOPHEN 325 MG TABLET PO PRN (05:00)
[2024-12-25 05:11] LABS: Absolute Eosinophils 0.2 K/uL (0-0.5); Absolute Lymphocytes (CBC) 0.8 K/uL (0.7-4.9); Absolute Monocytes 0.5 K/uL (0.1-1.3); Basophils % 0.6 % (0-1.3); Eosinophils % 4.3 % (0-4.4); Hematocrit 22.4 % (39.6-49.0); Hemoglobin 7.4 g/dL (13.6-17.9); Lymphocytes % 14.4 % (15.3-44.8); MCH 30.1 pg (27.0-35.0); MPV 7.1 fL (7.6-11.3); Monocytes % 9.4 % (3.3-12.3); Neutrophils % 71.3 % (41.7-73.7); Platelets 166 thou/uL (152-406); RBC Red Blood Cell Count 2.46 M/uL (4.33-5.43)
[2024-12-25 05:15] LABS: Anion Gap 13.5 mEq/L (5.0-15.0); Potassium 4.5 mEq/L (3.5-5.1)
[2024-12-25] MEDS: carvediloL 25 MG TAB PO SCH (09:00)
[2024-12-25] MEDS: PANTOPRAZOLE 40MG TABLET PO SCH (09:00)
[2024-12-25] MEDS: ASPIRIN EC 81 MG TAB PO SCH (09:00)
[2024-12-25] MEDS: HYDRALAZINE HCL 25 MG TABLET PO SCH (09:00)
[2024-12-25] MEDS ORDERED: PANTOPRAZOLE 40MG TABLET PO ONE (09:27)
[2024-12-25] MEDS ORDERED: HYDRALAZINE HCL 25 MG TABLET ONE (09:28)
[2024-12-25] MEDS ORDERED: ASPIRIN EC 81 MG TAB PO ONE (09:28)
[2024-12-25] MEDS: AMLODIPINE 10 MG TAB PO ONE (10:00)
[2024-12-25] MEDS: BENAZEPRIL 20 MG TAB PO ONE (10:00)
[2024-12-25] MEDS ORDERED: AMLODIPINE 10 MG TAB ONE (11:17)
[2024-12-25] MEDS: SUCROFERRIC OXYHYDROXIDE 500 MG PO SCH (12:00)
[2024-12-25] MEDS: SEVELAMER CARBONATE 800 MG TABLET PO SCH (12:00)
[2024-12-25] MEDS ORDERED: EPOETIN ALFA 10,000 UNIT/ML VIAL IV SCH (12:00)
--- NOTE | 2024-12-25 12:28 | EKG ---
Test Date: 2024-12-24 Test Time: 19:24:26 Oxygen Therapist: JEFFRY MEASUREMENT RESULTS: Intervals: Rate: 71 WI: 196 QRSD: 94 QT: 424 QTc: 460 [place]: P: 47 WI: 196 QRS: 81 T: 12 INTERPRETIVE STATEMENTS: Normal sinus rhythm Normal ECG Compared to ECG 10/17/2024 10:32:21 Ventricular premature complex(es) no longer present Left ventricular hypertrophy no longer present T-wave abnormality no longer present Possible ischemia no longer present Electronically Signed On 12-25-24 12:25:16 CDT by Jaxon Lawson
--- NOTE | 2024-12-25 13:45 | CON ---
Date of Consultation: 12/25/2024 Consulting Physician: Hospitalist. Reason For Consultation: Elevated BUN and creatinine, fluid management, over volume. History Of Present Illness: This is a pleasant 64-year-old gentleman, well known to me from the dialysis with significant past medical history of hypertension; diabetes complicated with neuropathy; nephropathy; CAD complicated with congestive heart failure; end-stage renal disease, on hemodialysis; intracranial bleed secondary to a fall, status post craniotomy recently; chronic IJ clot. The patient was in his regular state of health, came to the hospital complaining from shortness of breath and leg swelling, found to be over volume. For that reason, we have been consulted. The patient's last dialysis day before yesterday, Monday. Home Medications: Include carvedilol, Ambien, Tylenol, lisinopril, hydralazine, pantoprazole, amlodipine. Past Medical History: 1. End-stage renal disease. 2. Hypertension. 3. Diabetes. 4. Chronic IJ clot. 5. CHF. 6. PD catheter placement and removal. 7. Shoulder surgery. 8. Knee surgery. 9. Craniotomy. Family History: Positive for CAD and diabetes. Social History: Active alcohol, active smoker. Denied drugs abuse. Review of Systems: Head and Neck: No red eye. No ear pain. GI: No nausea, no vomiting. : No polyuria, no dysuria, no hematuria. Manager Case: Not applicable. Respiratory: Has shortness of breath. Cardiovascular: Has leg swelling, has orthopnea. Endocrine: No polydipsia. Skin: No rash. Neuro: Has neuropathy, has fall. Musculoskeletal: Generalized fatigue. Physical Examination: General: When I saw the patient, the patient was lying in bed. Vital signs: Blood pressure of 170/90, pulse of 83, afebrile. Chest: Crackles bilateral. Heart: S1, S2. Systolic murmur. Abdomen: Soft, nontender. Extremities: Trace edema. Neurologic: Alert. No focality. Laboratory Data: Hemoglobin 7.4. Sodium 131, potassium 4.5 bicarb 35, BUN 26, creatinine 6, calcium 8.4. Assessment And Plan: 1. End-stage renal disease with over volume. I am going to resume the dialysis for the patient. We will dialyze the patient today. We will try to challenge the patient. 2. Hypertension. We will utilize blood pressure for more ultrafiltration. 3. Anemia of chronic kidney disease. We will follow up H and H, resume HASEEB. 4. Secondary hyperparathyroidism. Resume binder. 5. Over volume will be corrected with dialysis. 6. Hyponatremia secondary to dilutional, will be corrected with dialysis. time spent examining the patient [id number] reviewing data lab and the radiology placing order discussing the case with the patient discussing the case with the team coordinator including hospitalist and nursing staff more than 75-minute RENAE Voice ID: [id number] Report ID: [id number] MARY
[2024-12-25] MEDS: HYDROCODONE/APAP 5/325 MG TAB PO PRN (16:43)
--- NOTE | 2024-12-25 18:18 | P.PN ---
Subjective Date of Service: 12/25/24 Chief Complaint: ESRD, volume overload. Patient reports shortness of breath. He is tolerating room air. He denies any chest pain. Physical Examination - Vital Signs Temperature: 97.6 F Blood Pressure: 166/77 Pulse: 66 Respirations: 24 Pulse Ox (%): 97 - Studies Laboratory Data (last 24 hrs) 12/24/24 12/24/24 12/24/24 19:53 19:53 19:53 WBC 7.00 Hgb 8.0 L Hct 23.4 L Plt Count 178 PT 12.4 INR 1.09 Sodium 129 L Potassium 4.3 BUN 34 H Creatinine 5.44 H Glucose 90 Magnesium 1.9 Total Bilirubin 0.5 AST 21 ALT 21 Alkaline Phosphatase 113 Assessment And Plan - Plan Physical examination General: Alert and oriented x3, NAD, HEENT: Conjunctiva not pale, anicteric sclera Neck: Supple, no elevated JVD Heart: Heart sounds 1 and 2 normal, regular rhythm, normal rate, no pedal edema Lungs: Clear to auscultation bilaterally, adequate breath sounds bilaterally, no rhonchi or crackles. Abdomen: Soft, nondistended, nontender, normal bowel sounds. Extremities: No tenderness, no deformity Skin: Normal skin turgor, no rash, no nodules or ulcers. Neuro: No focal motor deficit. Normal speech. Psychiatry: Normal mood, no agitation. Diagnosis Pulmonary edema secondary to volume overload End-stage renal disease on hemodialysis. Recent fall with skull surgery Essential hypertension Anemia of chronic kidney disease Plan: ESRD on hemodialysis Pulmonary edema secondary to volume overload Nephrology Dr. Ellison has evaluated patient and recommend hemodialysis today. Monitor intake and output Further management per nephrology Hypertension Continue home antihypertensives. Anemia of renal disease Monitor CBC and transfuse as needed for hemoglobin less than 7 DVT Prophylaxis: Heparin Advanced directive: Full code.
[2024-12-25] MEDS: EPOETIN ALFA 10,000 UNIT/ML VIAL IV SCH (20:45)
[2024-12-26] MEDS: ALPRAZOLAM 0.5 MG TABLET PO ONE (05:08)
[2024-12-26] MEDS: BENAZEPRIL 20 MG TAB PO SCH (08:15)
[2024-12-26] MEDS: AMLODIPINE 10 MG TAB PO SCH ×2 (09:00→10:07)
[2024-12-26 09:27] LABS: Anion Gap 11.9 mEq/L (5.0-15.0); Phosphorus 4.7 mg/dL (2.5-4.9); Potassium 3.9 mEq/L (3.5-5.1)
--- NOTE | 2024-12-26 11:11 | RAD REPORT ---
EXAM: CT Soft Tissue Neck W/Contr INDICATION: [facility] MAIN swollen submandibular glands, SOB TECHNIQUE: Helical CT examination of the neck with IV contrast. Not reported Sagittal and coronal ref ormations were generated. This exam was performed according to our departmental dose-optimization program, which includes automated exposure control, adjustment of the mA and/or kV according to patie nt size and/or use of iterative reconstruction technique. COMPARISON: None. FINDINGS: Mucosal spaces: Nasopharynx, oropharynx, oral cavity, larynx and hypopharynx are normal. No suspiciou s masses. Epiglottis is normal in configuration. True vocal cords cords are normally situated. Piriform sinuses are well-aerated. Lymph Nodes: Mildly prominent level 1 and 2 lymph nodes measuring up to 1.3 cm in short axis. Salivary Glands: Unremarkable. Pronounced subcutaneous soft tissue swelling along the anterior neck and submandibular regions Thyroid Gland: Normal Included Intracranial Structures: Postsurgical changes of left parietotemporal craniotomy. Subgaleal seroma overlying the craniotomy, measuring up to 1.9 cm in thickness. Included Orbits: Normal Paranasal Sinuses: Predominantly clear Tympanomastoid Cavities: Normal Vascular Structures: Normal Osseous Structures: No acute osseous abnormality. Included Lung Apices: Normal IMPRESSION: Nonspecific pronounced subcutaneous soft tissue swelling along the anterior neck and submandibular re gions. Please correlate clinically for cellulitis. Sequelae of left parietotemporal craniotomy with overlying sizable seroma as above.
--- NOTE | 2024-12-26 15:14 | P.PN ---
Subjective Date of Service: 12/26/24 Chief Complaint: ESRD, volume overload. Patient reports facial swelling as well as swelling in the submandibular area. He is tolerating room air. He denies any chest pain. Physical Examination - Vital Signs Temperature: 97.9 F Blood Pressure: 186/85 Pulse: 71 Respirations: 18 Pulse Ox (%): 91 Assessment And Plan - Plan Physical examination General: Alert and oriented x3, NAD, HEENT: Bilateral periorbital edema, Swelling in the submandibular area. Neck: Supple, no elevated JVD Heart: Heart sounds 1 and 2 normal, regular rhythm, normal rate, no pedal edema Lungs: Clear to auscultation bilaterally, adequate breath sounds bilaterally, no rhonchi or crackles. Abdomen: Soft, nondistended, nontender, normal bowel sounds. Extremities: No tenderness, no deformity Skin: Normal skin turgor, no rash, no nodules or ulcers. Neuro: No focal motor deficit. Normal speech. Psychiatry: Normal mood, no agitation. Diagnosis Pulmonary edema secondary to volume overload End-stage renal disease on hemodialysis. Recent fall with skull surgery Essential hypertension Anemia of chronic kidney disease Plan: ESRD on hemodialysis Pulmonary edema secondary to volume overload Nephrology Dr. Ellison is following. Patient underwent hemodialysis yesterday and plan for hemodialysis today. Monitor intake and output Further management per nephrology Facial swelling Likely related to renal anasarca. Patient to have dialysis today. Hypertension Uncontrolled Continue home antihypertensives. Increase hydralazine to 50 mg 3 times daily. Anemia of renal disease Monitor CBC and transfuse as needed for hemoglobin less than 7 DVT Prophylaxis: Heparin Advanced directive: Full code.
[2024-12-26] MEDS: HYDRALAZINE HCL 20 MG/ML VIAL IV PRN (18:43)
[2024-12-26] MEDS: ZOLPIDEM TARTRATE 10 MG TABLET PO PRN (22:47)
[2024-12-27] MEDS: LABETALOL 20 MG/4ML SYRINGE IV ONE (04:43)
[2024-12-27] MEDS: DOXAZOSIN 2 MG TAB PO ONE (06:48)
[2024-12-27 08:08] LABS: Albumin 3.1 g/dL (3.4-5.0); Anion Gap 11.8 mEq/L (5.0-15.0); Phosphorus 4.7 mg/dL (2.5-4.9); Potassium 3.8 mEq/L (3.5-5.1)
[2024-12-27 08:10] LABS: Absolute Eosinophils 0.2 K/uL (0-0.5); Absolute Lymphocytes (CBC) 0.6 K/uL (0.7-4.9); Absolute Monocytes 0.6 K/uL (0.1-1.3); Absolute Neutrophil 4.5 K/uL (1.8-8.0); Basophils % 0.8 % (0-1.3); Eosinophils % 3.5 % (0-4.4); Hematocrit 24.9 % (39.6-49.0); Hemoglobin 8.1 g/dL (13.6-17.9); Lymphocytes % 10.7 % (15.3-44.8); MCH 29.2 pg (27.0-35.0); MCHC 32.7 g/dL (32.0-36.0); MCV 89.3 fL (80-100); MPV 7.7 fL (7.6-11.3); Nucleated Red Blood Cells % 0.2 % (0-0); Platelets 162 thou/uL (152-406); RBC Red Blood Cell Count 2.78 M/uL (4.33-5.43); Red Cell Distribution Width 17.2 % (12.1-15.2)
[2024-12-27] MEDS: DIPHENHYDRAMINE 50 MG/ML VIAL IV ONE (09:22)
[2024-12-27] MEDS: HYDROCORTISONE SUC 100 MG INJ IV ONE (09:23)
--- NOTE | 2024-12-27 14:48 | P.PN ---
Subjective Date of Service: 12/27/24 Chief Complaint: ESRD, volume overload. Patient face and head more swollen today, significant aftab-orbital edema with eyes swollen shut. He is tolerating room air. He denies any chest pain. Physical Examination - Vital Signs Temperature: 97.5 F Blood Pressure: 171/88 Pulse: 77 Respirations: 20 Pulse Ox (%): 95 Assessment And Plan - Plan Physical examination General: Alert and oriented x3, NAD, HEENT: CVA periorbital edema, Swelling in the submandibular area, whole face is swollen Neck: Supple, no elevated JVD Heart: Heart sounds 1 and 2 normal, regular rhythm, normal rate, no pedal edema Lungs: Clear to auscultation bilaterally, adequate breath sounds bilaterally, no rhonchi or crackles. Abdomen: Soft, nondistended, nontender, normal bowel sounds. Extremities: No tenderness, no deformity Skin: Normal skin turgor, no rash, no nodules or ulcers. Neuro: No focal motor deficit. Normal speech. Psychiatry: Anxious, irritable. Diagnosis Pulmonary edema secondary to volume overload End-stage renal disease on hemodialysis. Recent fall with skull surgery Essential hypertension Anemia of chronic kidney disease Plan: ESRD on hemodialysis Pulmonary edema secondary to volume overload Nephrology Dr. Ellison is following. Patient underwent hemodialysis yesterday and plan for hemodialysis today. Monitor intake and output Further management per nephrology Facial swelling Likely related to renal anasarca. Patient to have dialysis today. Hypertension Uncontrolled Continue home antihypertensives. Increase hydralazine to 50 mg 3 times daily. Anemia of renal disease Monitor CBC and transfuse as needed for hemoglobin less than 7 12/27 Patient with a history of chronic IJ clot per nephrology Left AV fistula. Facial swelling suspected to be secondary to vascular occlusion related to history of IJ clot or AV fistula. Vascular surgery- Dr. Pinto consulted was planning angiogram today. Patient given a dose of IV hydrocortisone, Benadryl and Pepcid for possible allergic reaction/angioedema. Nephrology is following for hemodialysis and may have to hold dialysis after the angiogram. Continue current antihypertensives. Hydralazine IV as needed for BP spikes. Considering to add Cardura if blood pressure remains significantly elevated. DVT Prophylaxis: Heparin Advanced directive: Full code.
[2024-12-27] MEDS ORDERED: HEPARIN 10,000 UNIT/10 ML VIAL IV ONE (17:49)
[2024-12-27] MEDS ORDERED: MIDAZOLAM HCL 2 MG/2 ML INJ ONE (17:49)
[2024-12-27] MEDS ORDERED: HEPA 1000U/500MLS 2,000 UNIT/1,000 ML BAG IV ONE (17:49)
[2024-12-27] MEDS ORDERED: FENTANYL CITR 100 MCG/2 ML ONE (17:50)
[2024-12-27] MEDS ORDERED: LIDOCAINE 1% 20 ML MDV ONE (17:50)
[2024-12-27] MEDS ORDERED: NA CHLORIDE 0.9% 500 ML ONE (17:51)
--- NOTE | 2024-12-27 18:00 | P.HP ---
Date of Service: 12/27/24 Subjective Date of Service: 12/27/24 history: the patient has a history of ESRD, volume overload.he has dialysis via a left upper arm dialysis fistula. He does have significant edema to the neck and face. He also has periorbital edema. Presently, he demonstrates no respiratory distress. Oxygen saturation of 94% at 4 L. We have been consulted for left ARM dialysis fistulogram with potential central vein intervention. Given the worsening swelling, this is reasonable. Procedure involved risks, benefits and alternatives planed to the patient, as well as his (over the phone). They agreed to proceed. Physical examination General: Alert and oriented x3, NAD, HEENT: swelling to the neck, no obvious jugular venous distention Neck: Supple, no elevated JVD Heart: regular rate and rhythm Lungs: no respiratory distress, no use of accessory muscles Abdomen: Soft, nondistended, nontender, normal bowel sounds. left ARM: Radial pulse palpable. Her left upper arm dialysis fistula with thrill. Summary of Orders 12/28/24 05:00 Renal Panel DAILY Comment: Physician Instructions: Specimen: Send someone from the department to collect Primary Language: Georgian 12/28/24 11:09 Dialysis Orders Routine Physician Instructions: Date for Hemodialysis: 12/28/24 Dialyzer: [facility] Dialysis Treatment Time: 3 Potassium mEq/L: 2 Bicarbonate mEq/L: 33 Calcium mEq/L: 2.5 mEq/L Sodium mmol/L: 140 Blood Flow Rate mL/mn: 350 Dialysate Flow Rate mL/mn: 600 mL/mn Heparin Bolus/units: 0 Heparin Hourly Rate units/hr: 0 Target Ultrafiltration/mL: 3 Additional Instructions/Parameters: UF 3kg no heparin , use albumin if SBP <100 thank you 12/29/24 05:00 Renal Panel DAILY Comment: Physician Instructions: Specimen: Send someone from the department to collect Primary Language: Georgian 12/30/24 05:00 Renal Panel DAILY Comment: Physician Instructions: Specimen: Send someone from the department to collect Primary Language: Georgian Laboratory Results WBC 5.60 thou/uL (4.3-10.9) 12/25/24 04:13 RBC 2.46 M/uL (4.33-5.43) L 12/25/24 04:13 Hgb 7.4 g/dL (13.6-17.9) L 12/25/24 04:13 Hct 22.4 % (39.6-49.0) L 12/25/24 04:13 MCV 91.0 fL (80-100) 12/25/24 04:13 MCH 30.1 pg (27.0-35.0) 12/25/24 04:13 MCHC 33.0 g/dL (32.0-36.0) 12/25/24 04:13 RDW 17.0 % (12.1-15.2) H 12/25/24 04:13 Plt Count 166 thou/uL (152-406) 12/25/24 04:13 MPV 7.1 fL (7.6-11.3) L 12/25/24 04:13 Neutrophils % 71.3 % (41.7-73.7) 12/25/24 04:13 Lymphocytes % 14.4 % (15.3-44.8) L 12/25/24 04:13 Monocytes % 9.4 % (3.3-12.3) 12/25/24 04:13 Eosinophils % 4.3 % (0-4.4) 12/25/24 04:13 Basophils % 0.6 % (0-1.3) 12/25/24 04:13 Absolute Neutrophils 4.0 K/uL (1.8-8.0) 12/25/24 04:13 Absolute Lymphocytes 0.8 K/uL (0.7-4.9) 12/25/24 04:13 Absolute Monocytes 0.5 K/uL (0.1-1.3) 12/25/24 04:13 Absolute Eosinophils 0.2 K/uL (0-0.5) 12/25/24 04:13 Absolute Basophils 0.0 K/uL (0-0.5) 12/25/24 04:13 PT 12.4 SECONDS (10-13.0) 12/24/24 19:53 INR 1.09 12/24/24 19:53 Sodium 131 mEq/L (136-145) L 12/25/24 04:13 Potassium 4.5 mEq/L (3.5-5.1) 12/25/24 04:13 Chloride 96 mEq/L (98-107) L 12/25/24 04:13 Carbon Dioxide 26 mEq/L (21-32) 12/25/24 04:13 Anion Gap 13.5 mEq/L (5.0-15.0) 12/25/24 04:13 BUN 35 mg/dL (7-18) H 12/25/24 04:13 Creatinine 6.04 mg/dL (0.70-1.30) H 12/25/24 04:13 Est GFR (CKD-EPI) 10 ml/min (=/>90) L 12/25/24 04:13 Glucose 103 mg/dL (74-106) 12/25/24 04:13 POC Glucose 115 mg/dL (65-120) 12/25/24 15:45 Calcium 8.4 mg/dL (8.5-10.1) L 12/25/24 04:13 Magnesium 1.9 mg/dL (1.6-2.4) 12/24/24 19:53 Total Bilirubin 0.5 mg/dL (0.2-1.0) 12/24/24 19:53 Direct Bilirubin < 0.2 mg/dL (0-0.2) 12/24/24 19:53 Indirect Bilirubin 0.3 mg/dL (0.2-0.8) 12/24/24 19:53 AST 21 U/L (15-37) 12/24/24 19:53 ALT 21 U/L (16-61) 12/24/24 19:53 Alkaline Phosphatase 113 U/L (45-117) 12/24/24 19:53 Troponin I High Sens 47.0 pg/mL (<58.9) 12/24/24 19:53 NT-Pro-B Natriuret Pep 05450 pg/mL (<125) H 12/24/24 19:53 Serum Total Protein 6.6 g/dL (6.4-8.2) 12/24/24 19:53 Albumin 3.0 g/dL (3.4-5.0) L 12/24/24 19:53 Globulin 3.6 g/dL (2.3-3.5) H 12/24/24 19:53 Albumin/Globulin Ratio 0.8 (1.1-1.8) L 12/24/24 19:53 Influenza Type A Ag Negative 12/24/24 19:53 Influenza Type B Ag Negative 12/24/24 19:53 SARS-CoV-2 Ag (Rapid) Negative (Negative) 12/24/24 19:53 SARS CoV-2 Rapid Comm See below 12/24/24 19:53 Temp Pulse Resp BP Pulse Ox 98.5 F 81 18 174/83 H 98 12/27/24 15:12 12/27/24 17:00 12/27/24 17:00 12/27/24 17:00 12/27/24 17:00 Assessment/plan: Patient has a left upper arm dialysis fistula. We shall perform fistulogram to assess for any central vein stenosis, and intervene with potential angioplasty/ stenting.
--- NOTE | 2024-12-27 18:56 | P.OP ---
Date of Service: 12/27/24 PREPROCEDURE DIAGNOSIS: End-stage renal disease. Poor flow through dialysis fistula. Swelling of the arm, neck and face POSTPROCEDURE DIAGNOSIS: End-stage renal disease. Poor flow through dialysis fistula. Swelling of the arm, neck and face PROCEDURES PERFORMED 1. Needle access of dialysis fistula with fistulogram. 2. Percutaneous transluminal angioplasty of fistula stenoses. 3. Percutaneous transluminal angioplasty of the subclavian vein and brachiocephalic vein Sedation: None COMPLICATIONS: None. CONDITION: Good. DISPOSITION: Home. ACCESS SITE: Left arm dialysis shunt. CONTRAST TYPE: Omnipaque 240 CONTRAST VOLUME: 30 mL. INDICATION FOR PROCEDURE: Patient has a left arm dialysis fistula. The patient was noted to have poor flow to the fistula, with significant swelling as detailed above. The patient presents today for fistulogram with intervention. The risks, benefits, and alternatives of the procedure were discussed with the patient and understands and in agreement to proceed. PROCEDURE DETAILS: The patient was brought to the angio suite and laid supine on the table. After sedation was administered, the left arm was then prepped and draped in a standard surgical fashion. Continuous pulse oximetry and cardiac monitoring were performed throughout the procedure. The left arm dialysis shunt was palpated. The skin overlying the vessel was injected with 1% lidocaine solution. The shunt then was cannulated with a 21g micropuncture needle. A fistulogram was performed which demonstrated a high- grade stenosis at left basilic vein-axillary vein junction. There was also severe, 80-90% stenosis in the brachiocephalic vein. Based on the results of the diagnostic shunt study, decision was then made to proceed with angioplasty. A 0.035 glide advantage wire was then obtained and advanced through the needle, across the area of stenoses. After crossing the area of stenosis, a 10 mm x 60 mm angioplasty balloon was placed over the glidewire into the area of stenosis and inflated to 10 mmHg pressure and then deflated. The 10 mm balloon catheter was then introduced into the subclavian vein and brachycephalic vein were balloon angioplasty was performed. Venogram demonstrated that there was still severe residual stenosis and therefore the 10 mm balloon catheter was removed and replaced with a 12 mm x 80 mm balloon catheter. Balloon angioplasty was then repeated. Exam was concluded, and direct manual pressure was held over the puncture site. After adequate hemostasis was achieved, the area was cleansed and a dressing was applied. The patient tolerated the procedure without any complications. I was present for the entire case. The sponge, instrument, and needle counts are correct at the end of the case. ANGIOGRAPHIC FINDINGS: The initial fistulogram demonstrated a stenosis at the basilic vein and vein. This was treated with 10 mm angioplasty After balloon angioplasty, there was significant improvement. Fistulogram of the venous outflow demonstrates severe, 70% stenosis in the subclavian vein, with 80-90% stenosis in the brachiocephalic vein near the junction with the superior vena cava. The superior vena cava is patent. The central vein stenoses were treated with 12 mm balloon angioplasty, with improved flow. There is still some recoil stenosis and the patient will likely require placement of a stent. IMPRESSION: 1. Fistula venous outflow stenosis treated with 10 mm balloon angioplasty 2. Severe, central vein stenosis treated with 12 mm balloon angioplasty. If patient's edema does not improve, he will likely require placement of a central venous stent
[2024-12-28] MEDS: ALPRAZOLAM 0.5 MG TABLET PO ONE (02:07)
[2024-12-28 07:12] LABS: Absolute Eosinophils 0.1 K/uL (0-0.5); Absolute Lymphocytes (CBC) 0.7 K/uL (0.7-4.9); Absolute Monocytes 0.5 K/uL (0.1-1.3); Absolute Neutrophil 3.5 K/uL (1.8-8.0); Basophils % 0.8 % (0-1.3); Eosinophils % 1.7 % (0-4.4); Hematocrit 23.2 % (39.6-49.0); Hemoglobin 7.6 g/dL (13.6-17.9); Lymphocytes % 14.2 % (15.3-44.8); MCH 29.5 pg (27.0-35.0); MCHC 32.8 g/dL (32.0-36.0); MCV 90.1 fL (80-100); MPV 7.7 fL (7.6-11.3); Monocytes % 9.7 % (3.3-12.3); Neutrophils % 73.6 % (41.7-73.7); Platelets 139 thou/uL (152-406); RBC Red Blood Cell Count 2.58 M/uL (4.33-5.43); Red Cell Distribution Width 17.4 % (12.1-15.2)
[2024-12-28 07:28] LABS: Albumin 2.8 g/dL (3.4-5.0); Phosphorus 5.6 mg/dL (2.5-4.9)
[2024-12-28] MEDS: FAMOTIDINE 20 MG/2 ML VIAL IV SCH (09:00)
--- NOTE | 2024-12-28 12:53 | PN ---
Date of Progress Note: 12/28/2024 Subjective: The patient was admitted to the hospital with over volume. The patient developed facial swelling, undergone angiogram yesterday, found to have central stenosis. The patient had angioplasty. The patient is feeling better. Physical Examination: Vital Signs: Blood pressure 109/79, pulse of 62. Chest: Clear to auscultation. Heart: S1, S2. Systolic murmur. Abdomen: Soft, nontender. Extremities: Trace edema. Neurologic: Alert. No focality. Laboratory Data: WBC 4.8, hemoglobin 7.6. Sodium 129, potassium 4, bicarb 26, BUN 31, creatinine 7, calcium 9, phosphorus 5.6, albumin 2.8, corrected albumin 9.8. Current Medications: The patient is on include: 1. Aspirin. 2. Diphenhydramine. 3. Epogen. 4. Carvedilol 25 b.i.d. 5. Benazepril. 6. Hydralazine 25 t.i.d. 7. Alprazolam. 8. Hydrocortisone. Assessment And Plan: 1. End-stage renal disease with chronic over volume status. I am going to continue to challenge the patient. Reinforce the patient for fluid restriction and we will monitor the patient. 2. Hypertension, controlled, optimal. Continue current treatment. 3. Central stenosis, status post angioplasty. The patient will need outpatient followup in 2 to 3 months to follow up on angioplasty and we will follow up. 4. Secondary hyperparathyroidism, continue binder. 5. Hyponatremia, dilutional, secondary to renal failure, will be corrected with dialysis. 6. Congestive heart failure with exacerbation. Continue challenging the patient. 7. Anemia of chronic kidney disease. Continue HASEEB. time spent examining the patient [id number] reviewing data lab and the radiology placing order discussing the case with the patient discussing the case with the teamcenter solution architect including hospitalist and nursing staff more than 55-minute EDGARDO/BETTINA Voice ID: [id number] Report ID: [id number] MARY
--- NOTE | 2024-12-28 14:41 | P.PN ---
Subjective Date of Service: 12/28/24 Chief Complaint: ESRD, volume overload. Patient facial swelling, eye swelling and head swelling Significantly improved after angioplasty yesterday. He denies any chest pain. Physical Examination - Vital Signs Temperature: 98.2 F Blood Pressure: 147/75 Pulse: 62 Respirations: 18 Pulse Ox (%): 97 Assessment And Plan - Plan Physical examination General: Alert and oriented x3, NAD, HEENT: periorbital edema resolved, Swelling in the submandibular area Neck: Supple, no elevated JVD Heart: Heart sounds 1 and 2 normal, regular rhythm, normal rate, no pedal edema Lungs: Clear to auscultation bilaterally, adequate breath sounds bilaterally, no rhonchi or crackles. Abdomen: Soft, nondistended, nontender, normal bowel sounds. Extremities: No tenderness, no deformity Skin: Normal skin turgor, no rash, no nodules or ulcers. Neuro: No focal motor deficit. Normal speech. Psychiatry: Normal mood. Diagnosis Pulmonary edema secondary to volume overload End-stage renal disease on hemodialysis. Recent fall with skull surgery Essential hypertension Anemia of chronic kidney disease Plan: ESRD on hemodialysis Pulmonary edema secondary to volume overload Nephrology Dr. Ellison is following. Patient underwent hemodialysis yesterday and plan for hemodialysis today. Monitor intake and output Further management per nephrology Facial swelling Likely related to renal anasarca. Patient to have dialysis today. Hypertension Uncontrolled Continue home antihypertensives. Increase hydralazine to 50 mg 3 times daily. Anemia of renal disease Monitor CBC and transfuse as needed for hemoglobin less than 7 12/27 Patient with a history of chronic IJ clot per nephrology Left AV fistula. Facial swelling suspected to be secondary to vascular occlusion related to history of IJ clot or AV fistula. Vascular surgery- Dr. Pinto consulted was planning angiogram today. Patient given a dose of IV hydrocortisone, Benadryl and Pepcid for possible allergic reaction/angioedema. Nephrology is following for hemodialysis and may have to hold dialysis after the angiogram. Continue current antihypertensives. Hydralazine IV as needed for BP spikes. Considering to add Cardura if blood pressure remains significantly elevated. 12/28 Angioplasty done by vascular surgery Dr. Pinto yesterday showed high-grade stenosis at left basilic vein-axillary vein junction. severe, 70% stenosis in the subclavian vein, with 80-90% stenosis in the brachiocephalic vein near the junction with the superior vena cava. Residual recoil stenosis. Facial edema has improved. Patient scheduled for dialysis today, okayed by vascular surgery. Nephrology to follow. Continue monitoring. Analgesics as needed. Continue antihypertensives DVT Prophylaxis: Heparin Advanced directive: Full code.
[2024-12-28] MEDS: FENTANYL CITR 100 MCG/2 ML IV PRN (18:09)
[2024-12-28] MEDS: LORazepam 2 MG/ML VIAL IV ONE (22:39)
[2024-12-29 05:11] VITALS: BMI 4691.9
[2024-12-29 06:00] LABS: Absolute Eosinophils 0.2 K/uL (0-0.5); Absolute Lymphocytes (CBC) 0.5 K/uL (0.7-4.9); Absolute Monocytes 0.5 K/uL (0.1-1.3); Absolute Neutrophil 5.4 K/uL (1.8-8.0); Basophils % 0.5 % (0-1.3); Eosinophils % 2.8 % (0-4.4); Hematocrit 24.6 % (39.6-49.0); Lymphocytes % 7.4 % (15.3-44.8); MCH 29.5 pg (27.0-35.0); MCHC 32.7 g/dL (32.0-36.0); MCV 90.4 fL (80-100); MPV 7.7 fL (7.6-11.3); Monocytes % 7.1 % (3.3-12.3); Neutrophils % 82.2 % (41.7-73.7); Nucleated RBC Absolute Count 0.1 (0-0); Nucleated Red Blood Cells % 0.8 % (0-0); Platelets 149 thou/uL (152-406); RBC Red Blood Cell Count 2.72 M/uL (4.33-5.43); Red Cell Distribution Width 16.9 % (12.1-15.2)
[2024-12-29 06:49] LABS: Phosphorus 4.4 mg/dL (2.5-4.9)
[2024-12-29] MEDS: DOXAZOSIN 2 MG TAB PO SCH (08:59)
--- NOTE | 2024-12-29 13:59 | PN ---
Date of Progress Note: 12/29/2024 Subjective: The patient was admitted to the hospital with respiratory failure secondary to overvolume. The patient had central stenosis. The patient had angioplasty with angiogram. The patient recovered. The patient had dialysis yesterday, tolerated the dialysis. Physical Examination: Vital Signs: Blood pressure 126/58, pulse of 70. Chest: Clear to auscultation. Heart: S1, S2. Systolic murmur. Abdomen: Soft, nontender. Extremities: No edema. Neurologic: Alert. No focality. Laboratory Data: Hemoglobin 8, sodium 132, potassium 4, bicarb 24, BUN 24, creatinine 6.5, calcium 8.8, phosphorus 4.4. Current Medications: The patient on, it includes: 1. Aspirin. 2. Epogen. 3. Amlodipine. 4. Cardura. 5. Carvedilol 25 b.i.d. 6. Hydralazine 25 t.i.d. 7. Renvela 1600 q.a.c. 8. Pantoprazole. Assessment And Plan: 1. End-stage renal disease with overvolume, currently back to normal volume. We will resume dialysis as TTS, and we will follow up. 2. Hypertension, controlled, optimal. Continue current treatment. 3. Central stenosis, status post angioplasty, recovered, tolerated the procedure. We will follow up with Vascular. 4. Hyponatremia, dilutional, resolved. 5. Secondary hyperparathyroidism. Continue Renvela. The patient cleared from the Renal standpoint for discharge planning. time spent examining the patient [id number] reviewing data lab and the radiology placing order discussing the case with the patient discussing the case with the team sports sales associate including hospitalist and nursing staff more than 55-minute RENAE Voice ID: [id number] Report ID: [id number] MARY
--- NOTE | 2024-12-29 14:22 | P.PN ---
Subjective Date of Service: 12/29/24 Chief Complaint: ESRD, volume overload. Patient has no new complaint. Patient facial swelling and submandibular swelling continue to improve. He denies any shortness of breath. Physical Examination - Vital Signs Temperature: 98.4 F Blood Pressure: 126/58 Pulse: 70 Respirations: 17 Pulse Ox (%): 92 Assessment And Plan - Plan Physical examination General: Alert and oriented x3, NAD, HEENT: periorbital edema resolved, Swelling in the submandibular area significantly improved. Neck: Supple, no elevated JVD Heart: Heart sounds 1 and 2 normal, regular rhythm, normal rate, no pedal edema Lungs: Clear to auscultation bilaterally, adequate breath sounds bilaterally, no rhonchi or crackles. Abdomen: Soft, nondistended, nontender, normal bowel sounds. Extremities: No tenderness, no deformity Skin: Normal skin turgor, no rash, no nodules or ulcers. Neuro: No focal motor deficit. Normal speech. Psychiatry: Normal mood. Diagnosis Pulmonary edema secondary to volume overload End-stage renal disease on hemodialysis. Recent fall with skull surgery Essential hypertension Anemia of chronic kidney disease Plan: ESRD on hemodialysis Pulmonary edema secondary to volume overload Nephrology Dr. Ellison is following. Monitor intake and output Further management per nephrology Facial swelling Likely related to renal anasarca. Patient to have dialysis today. Hypertension Uncontrolled Continue home antihypertensives. Increase hydralazine to 50 mg 3 times daily. Anemia of renal disease Monitor CBC and transfuse as needed for hemoglobin less than 7 12/27 Patient with a history of chronic IJ clot per nephrology Left AV fistula. Facial swelling suspected to be secondary to vascular occlusion related to history of IJ clot or AV fistula. Vascular surgery- Dr. Pinto consulted was planning angiogram today. Patient given a dose of IV hydrocortisone, Benadryl and Pepcid for possible allergic reaction/angioedema. Nephrology is following for hemodialysis and may have to hold dialysis after the angiogram. Continue current antihypertensives. Hydralazine IV as needed for BP spikes. Considering to add Cardura if blood pressure remains significantly elevated. 12/28 Angioplasty done by vascular surgery Dr. Pinto yesterday showed high-grade stenosis at left basilic vein-axillary vein junction. severe, 70% stenosis in the subclavian vein, with 80-90% stenosis in the brachiocephalic vein near the junction with the superior vena cava. Residual recoil stenosis. Facial edema has improved. Patient scheduled for dialysis today, okayed by vascular surgery. Nephrology to follow. Continue monitoring. Analgesics as needed. Continue antihypertensives. 12/29 Facial swelling continue to improve. Vascular surgery Dr. Pinto recommend stent placement for residual stenosis in the brachiocephalic vein as an outpatient. Further hemodialysis per nephrology Blood pressure improved today. Continue current antihypertensives. Stable hemoglobin. DVT Prophylaxis: Heparin Advanced directive: Full code.
[2024-12-30 07:31] LABS: Absolute Eosinophils 0.2 K/uL (0-0.5); Absolute Lymphocytes (CBC) 0.6 K/uL (0.7-4.9); Absolute Monocytes 0.4 K/uL (0.1-1.3); Absolute Neutrophil 3.6 K/uL (1.8-8.0); Basophils % 0.7 % (0-1.3); Eosinophils % 4.3 % (0-4.4); Hematocrit 23.5 % (39.6-49.0); Hemoglobin 7.7 g/dL (13.6-17.9); MCH 29.4 pg (27.0-35.0); MCHC 32.7 g/dL (32.0-36.0); MCV 90.1 fL (80-100); MPV 7.2 fL (7.6-11.3); Monocytes % 8.1 % (3.3-12.3); Neutrophils % 74.9 % (41.7-73.7); Nucleated Red Blood Cells % 0.1 % (0-0); Platelets 148 thou/uL (152-406); RBC Red Blood Cell Count 2.61 M/uL (4.33-5.43); Red Cell Distribution Width 16.9 % (12.1-15.2)
[2024-12-30 07:43] LABS: Albumin 2.8 g/dL (3.4-5.0); Anion Gap 12.9 mEq/L (5.0-15.0); Phosphorus 5.4 mg/dL (2.5-4.9); Potassium 3.9 mEq/L (3.5-5.1)
[2024-12-30 14:14] VITALS: TEMP 97.5
[2024-12-30 14:45] VITALS: O2SAT 92
[2024-12-30 18:14] VITALS: BP 168/71
--- NOTE | 2024-12-30 19:21 | P.DS ---
Admission Date: 12/25/24 Discharge Date: 12/30/24 Disposition: ROUTINE DISCHARGE Discharge Condition: FAIR Reason for Admission: ESRD, volume overload. Brief History of Present Illness: 64 y o male pt with hx of HTN, DM 2, HLD, CHF and ESRD on HD MWF schedule admitted for management of volume overload. He reported chest discomfort and shortness of breath and he was to have repeat HD session today for volume management. He was seen in the ED with CXR findings of pulm edema. Patient was admitted for further management. Hospital Course: Diagnosis Pulmonary edema secondary to volume overload End-stage renal disease on hemodialysis. Recent fall with skull surgery Essential hypertension Anemia of chronic kidney disease Patient admitted to the medical floor and the following medical problems addressed: ESRD on hemodialysis Pulmonary edema secondary to volume overload Nephrology Dr. Ellison evaluated patient Patient underwent hemodialysis. Facial swelling Patient placed because of a swollen, eyes were shut swollen. Swelling did not respond to dialysis. He was given a dose of IV hydrocortisone, Benadryl and Pepcid for possible allergic reaction/angioedema. Patient with a history of chronic IJ clot per nephrology Left AV fistula. Facial swelling suspected to be secondary to vascular occlusion related to history of IJ clot or AV fistula. Vascular surgery- Dr. Pinto evaluated patient and performed angiogram. Angiogram showed high-grade stenosis at left basilic vein-axillary vein junct ion, severe, 70% stenosis in the subclavian vein, with 80-90% stenosis in the brachiocephalic vein near the junction with the superior vena cava. Angioplasty was done however Dr. Pinto reports residual stenosis and recommended a stent placement moving forward Facial edema improved. Patient successfully underwent hemodialysis Patient had elevated blood pressure which was managed with his home anti hypertensives. Patient underwent multiple sessions of hemodialysis. He is deemed stable for discharge per nephrology and vascular surgery. Dr. Pinto plans to follow-up with patient next week for arrangement for vascular stent placement. Patient is aware he is supposed to follow-up with Dr. Pinto next week for vascular stent. Vital Signs/Physical Exam: Temp Pulse Resp BP Pulse Ox 97.5 F 72 16 168/71 H 92 12/30/24 12:00 12/30/24 18:00 12/30/24 12:00 12/30/24 18:00 12/30/24 12:00 General: Alert, In no apparent distress, Oriented x3 HEENT: Mucous membr. moist/pink Neck: JVD not distended Respiratory: Clear to auscultation bilaterally, Normal air movement Cardiovascular: Regular rate/rhythm, Normal S1 S2 Gastrointestinal: Soft and benign, Non-distended Musculoskeletal: No tenderness Integumentary: No rashes, No cyanosis Neurological: Normal speech, Normal strength at 5/5 x4 extr Laboratory Data at Discharge: WBC 4.90 thou/uL (4.3-10.9) 12/30/24 07:18 Hgb 7.7 g/dL (13.6-17.9) L 12/30/24 07:18 Hct 23.5 % (39.6-49.0) L 12/30/24 07:18 Plt Count 148 thou/uL (152-406) L 12/30/24 07:18 PT 12.4 SECONDS (10-13.0) 12/24/24 19:53 INR 1.09 12/24/24 19:53 Sodium 129 mEq/L (136-145) L 12/30/24 07:18 Potassium 3.9 mEq/L (3.5-5.1) 12/30/24 07:18 BUN 34 mg/dL (7-18) H 12/30/24 07:18 Creatinine 8.14 mg/dL (0.70-1.30) H 12/30/24 07:18 Glucose 79 mg/dL (74-106) 12/30/24 07:18 Phosphorus 5.4 mg/dL (2.5-4.9) H 12/30/24 07:18 Magnesium 1.9 mg/dL (1.6-2.4) 12/24/24 19:53 Total Bilirubin 0.5 mg/dL (0.2-1.0) 12/24/24 19:53 AST 21 U/L (15-37) 12/24/24 19:53 ALT 21 U/L (16-61) 12/24/24 19:53 Alkaline Phosphatase 113 U/L (45-117) 12/24/24 19:53 Home Medications: carvediloL [Coreg*] 25 mg PO BID 30 Days #60 tab 06/06/24 Zolpidem Tartrate [Ambien] 10 mg PO BEDTIME PRN PRN 09/01/24 Aspirin [Aspirin EC] 81 mg PO DAILY #30 10/11/24 Hydralazine [Apresoline*] 25 mg PO TID tab 10/11/24 Pantoprazole [Protonix Tab*] 40 mg PO DAILY #14 tab 10/11/24 Amlodipine Besylate/Benazepril [Amlodipine-Benazepril 10-20 mg] 10 - 20 mg PO DAILY #30 12/30/24 Hydrocodone 5/APAP 325 [[place] 5/325*] 1 tab PO Q4H PRN #12 tab 12/30/24 Sevelamer Carbonate [Renvela*] 1,600 mg PO TIDWM #180 tab 12/30/24 New Medications: Amlodipine Besylate/Benazepril [Amlodipine-Benazepril 10-20 mg] 10 - 20 mg PO DAILY #30 Hydrocodone 5/APAP 325 [[place] 5/325*] 1 tab PO Q4H PRN #12 tab PRN Reason: Pain Scale 5-7 (Moderate) Sevelamer Carbonate [Renvela*] 1,600 mg PO TIDWM #180 tab Diet: Renal Activity: Ad adina Followup: Constantin Ellison MD [ACTIVE - CAN ADMIT] - 1 Week Toya Andrew DO, DO [Primary Care Provider] - 1-2 Weeks Aileen Pinto MD [ACTIVE - CAN ADMIT] - 1 Week Time spent managing pt's care (in minutes): 40
--- NOTE | 2024-12-30 23:03 | PN ---
Date of Progress Note: 12/30/2024 Chief Complaint: End-stage renal disease; fluid overload; congestive heart failure exacerbation, acu te on chronic, with diastolic dysfunction. Subjective: The patient underwent angiogram and angioplasty for central vein stenosis. The patient recovered and dialysis was done today for metabolic clearance and ultrafiltration. Review of Systems: Denies PND or orthopnea. Denies fever, chills, chest pain, syncope. Physical Examination: Lungs: Diminished breath sounds at bases. Heart: S1, S2. 2/6 systolic murmur, left lower sternal border. Abdomen: Soft, benign. Extremities: Slight edema. Impression And Plan: 1. End-stage renal disease with volume overload. Continue ultrafiltration with dialysis. The patien t is undergoing dialysis and procedure is well tolerated. 2. Hypertension. Blood pressure controlled. Continue current medication. 3. Central vein stenosis, status post angioplasty. The patient will follow up with vascular surgeon. 4. Hyponatremia, dilutional due to fluid overload and congestive heart failure. Hyponatremia resolve d. Monitor fluid balance and continue low-sodium diet. 5. Secondary hyperparathyroidism. Continue Renvela. 6. Congestive heart failure exacerbation with diastolic dysfunction. Continue dialysis for volume co ntrol. Continue carvedilol for blood pressure and congestive heart failure, along with hydralazine. Monitor blood pressure closely. NADEEN/ERICL Voice ID: [id number] Report ID: [id number]
== END 2024-12-30 20:30 | disposition home or self-care (01) | DRG 252 ==
LOC: ER 18:31 → ERHOLD 22:11 → 2ND 12-25 11:36 → OBSVTOIN 12-25 19:00 → 3RD-ICU 12-27 15:10 → 4TH 12-29 19:04
PROVIDERS: ADMIT Internal Medicine Nephrology; ATTEND Internal Medicine
PROC: 5A1D70Z Performance of Urinary Filtration, Intermittent, Less than 6 Hours Per Day (ICD-10-PCS; 2024-12-25)
PROC: 5A1D70Z Performance of Urinary Filtration, Intermittent, Less than 6 Hours Per Day (ICD-10-PCS; 2024-12-26)
PROC: 05743ZZ Dilation of Left Innominate Vein, Percutaneous Approach (ICD-10-PCS; principal; 2024-12-27)
PROC: 05763ZZ Dilation of Left Subclavian Vein, Percutaneous Approach (ICD-10-PCS; 2024-12-27)
PROC: B51W1ZZ Fluoroscopy of Dialysis Shunt/Fistula using Low Osmolar Contrast (ICD-10-PCS; 2024-12-27)
PROC: 5A1D70Z Performance of Urinary Filtration, Intermittent, Less than 6 Hours Per Day (ICD-10-PCS; 2024-12-28)
PROC: 5A1D70Z Performance of Urinary Filtration, Intermittent, Less than 6 Hours Per Day (ICD-10-PCS; 2024-12-30)
DX: T82.858A Stenosis of other vascular prosthetic devices, implants and grafts, initial encounter (principal); I50.33 Acute on chronic diastolic (congestive) heart failure; J81.0 Acute pulmonary edema; N18.6 End stage renal disease; I13.2 Hypertensive heart and chronic kidney disease with heart failure and with stage 5 chronic kidney disease, or end stage renal disease; I87.1 Compression of vein; E87.1 Hypo-osmolality and hyponatremia; N25.81 Secondary hyperparathyroidism of renal origin; E11.22 Type 2 diabetes mellitus with diabetic chronic kidney disease; D63.1 Anemia in chronic kidney disease; E78.5 Hyperlipidemia, unspecified; E87.70 Fluid overload, unspecified; I25.10 Atherosclerotic heart disease of native coronary artery without angina pectoris; E11.40 Type 2 diabetes mellitus with diabetic neuropathy, unspecified; Z99.2 Dependence on renal dialysis; Z79.4 Long term (current) use of insulin; Z87.820 Personal history of traumatic brain injury; Z11.52 Encounter for screening for COVID-19
CPT/HCPCS: 36415; 70491; 71045; 80048; 80069; 80076; 82947; 83735; 83880; 84484; 85025; 85610; 87428; 90935; 93005; 96374; 96375; 99285; C1725; C1769; C1893; G0378; J0360; J1200; J1644; J1720; J2003; J2250; J2405; J3010; J7040; Q4081; Q9967

== ENCOUNTER 2025-05-26 08:14 | Emergency (ER) | payer OTHER ==
[2025-05-26] MEDS ORDERED: ONDANSETRON 4 MG (ODT) TAB ONE (08:42)
[2025-05-26] MEDS ORDERED: TRAMADOL HCL 50 MG TAB ONE (08:42)
[2025-05-26] MEDS ORDERED: GABAPENTIN 300 MG CAP ONE (08:42)
[2025-05-26] MEDS ORDERED: MORPHINE 4 MG/ML SYR ONE (08:43)
--- NOTE | 2025-05-26 08:45 | ER ---
Nurse's Notes [facility] Name: Alex Cagle Age: 64 yrs Sex: Male : 1960 Arrival Date: 05/26/2025 Time: 08:13 Bed 14 Private MD: Diagnosis: Pain in right leg Presentation: 05/26 08:13 Chief complaint: Chief complaint: EMS states: right leg pain and right arm pain that is aa5 chronic. EMS reports he normally goes to dialysis Monday, Monday, and Monday and received an extra day of dialysis on Monday due to fluid overload. 08:13 Acuity: DEJAN 3 aa5 08:13 Method Of Arrival: EMS: [facility] aa5 08:13 Coronavirus screen: At this time, the client does not indicate any symptoms associated aa5 with coronavirus-19. Ebola Screen: Patient denies travel to an Ebola-affected area in the 21 days before illness onset. Initial Sepsis Screen: Does the patient meet any 2 criteria? No. Patient's initial sepsis screen is negative. Does the patient have a suspected source of infection? No. Patient's initial sepsis screen is negative. Risk Assessment: Do you want to hurt yourself or someone else? Patient reports no desire to harm self or others. Onset of symptoms is unknown. 08:13 Care prior to arrival: Medication(s) given: Ofirmev 1 gram IVP IV initiated. 20 GA, in aa5 the right forearm. Historical: - Allergies: 08:26 NKA; aa5 - PMHx: 08:26 CHF; Diabetes - NIDDM; dialysis on M/W/F; ESRD; Hypertension; insomnia; aa5 - PSHx: 08:26 bilateral knee repairs; Left arm fistula; R shoulder; aa5 - Immunization history:: Adult Immunizations unknown. - Infectious Disease History:: Denies. - Social history:: Smoking status: Patient reports the use of cigarette tobacco products. Screenin:15 [facility] ED Fall Risk Assessment (Adult) History of falling in the last 3 months, aa5 including since admission No falls in past 3 months (0 pts) Confusion or Disorientation No (0 pts) Intoxicated or Sedated No (0 pts) Impaired Gait No (0 pts) Mobility Assist Device Used No (0 pt) Altered Elimination No (0 pt) Score/Fall Risk Level 0 - 2 = Low Risk Oriented to surroundings, Maintained a safe environment, Educated pt \T\ family on fall prevention, incl call for assistance when getting out of bed, Assessed \T\ reinforced patient's understanding of fall precautions. Abuse screen: Denies threats or abuse. Nutritional screening: No deficits noted. Tuberculosis screening: No symptoms or risk factors identified. Assessment: 08:13 General: Appears comfortable, Behavior is calm, cooperative. Pain: Complains of pain in aa5 right arm and right leg Pain currently is 9 out of 10 on a pain scale. Quality of pain is described as aching, Is continuous, Aggravated by increased activity. Neuro: Level of Consciousness is awake, alert, obeys commands, Oriented to person, place, time, situation. Cardiovascular: Heart tones S1 S2 present Patient's skin is warm and dry. Edema is absent. Rhythm is regular Dialysis shunt: in the left arm, with palpable thrill, with auscultated bruit, with no erythema, with no edema, no bleeding noted. Respiratory: Airway is patent Respiratory effort is even, unlabored, Respiratory pattern is regular, symmetrical. GI: No signs and/or symptoms were reported involving the gastrointestinal system. : No signs and/or symptoms were reported regarding the genitourinary system. EENT: No signs and/or symptoms were reported regarding the EENT system. Derm: Skin is pink, warm \T\ dry. Musculoskeletal: Range of motion: intact in all extremities. 09:06 Reassessment: Patient is alert, oriented x 3, equal unlabored respirations, skin aa5 warm/dry/pink. Patient states feeling better. Pain: Pain currently is 7 out of 10 on a pain scale. Vital Signs: 08:13 BP 113 / 57; Pulse 59; Resp 18 S; Temp 97.8(O); Pulse Ox 96% on R/A; Weight 94.8 kg aa5 (R); Height 5 ft. 7 in. (R); 09:06 BP 106 / 52; Pulse 60; Resp 16 S; Pulse Ox 96% on R/A; aa5 08:13 Body Mass Index 32.73 (94.80 kg, 170.18 cm) aa5 ED Course: 08:13 Patient arrived in ED. bd 08:13 Arm band placed on Patient placed in an exam room, on a stretcher. aa5 08:13 Patient has correct armband on for positive identification. Placed in gown. Bed in low aa5 position. Call light in reach. Side rails up X2. Pulse ox on. NIBP on. 08:13 No provider procedures requiring assistance completed. Maintain EMS IV. aa5 08:20 Rodney Morris FNP-C is PHCP. dr5 08:20 Cliff Abbott DO is Attending Physician. dr5 08:25 Nabila Morataya, RN is Primary Nurse. aa5 08:32 Triage completed. aa5 09:09 IV discontinued, intact, bleeding controlled, No redness/swelling at site. Pressure aa5 dressing applied. Administered Medications: 08:52 Drug: morphine IVP or IV 4 mg IVP once over 4 mins Route: IVP; Infused Over: 4 mins; aa5 Site: right forearm; 09:06 Follow up: Response: No adverse reaction; Pain is decreased aa5 08:52 Drug: Ondansetron PO 4 mg PO once Route: PO; aa5 09:06 Follow up: Response: No adverse reaction aa5 08:52 Drug: traMADol PO 25 mg PO once Route: PO; aa5 09:06 Follow up: Response: No adverse reaction aa5 08:52 Drug: Gabapentin PO 300 mg PO once Route: PO; aa5 09:06 Follow up: Response: No adverse reaction aa5 Medication: 08:35 VIS not applicable for this client. aa5 Outcome: 08:44 Discharge ordered by MD. dr5 09:09 Discharged to home via wheelchair, with family, Has dialysis appointment at 1100. aa5 09:09 Condition: improved 09:09 Discharge instructions given to patient, Instructed on discharge instructions, follow up and referral plans. medication usage, Demonstrated understanding of instructions, follow-up care, medications, Prescriptions given X 2, 09:10 Patient left the ED. bc6 Signatures: Isabelle Chung Audri, RN RN aa5 Rajani Acosta bc6 Rodney Morris FNP-C [employer] SALESPERSON-Cdr5 Corrections: (The following items were deleted from the chart) 08:29 08:26 PSHx: [id number] (Unknown); aa5 aa5 08:32 08:13 Chief complaint: aa5 aa5
--- NOTE | 2025-05-26 08:45 | EDPHYS ---
Physician Documentation [facility] Name: Alex Cagle Age: 64 yrs Sex: Male : 1960 Arrival Date: 05/26/2025 Time: 08:13 Bed 14 Private MD: ED Physician Cliff Abbott HPI: 05/26 09:20 This 64 yrs old Male presents to ER via EMS with complaints of Leg Pain. dr5 09:20 The complaints affect the lateral aspect of right thigh, lateral aspect of right knee dr5 and lateral aspect of right calf. Onset: The symptoms/episode began/occurred. 09:21 Patient is a 64-year-old male with history of CHF, diabetes, ESRD, hypertension, and dr5 chronic pain coming in for chronic right leg pain this been going on for months. Patient reports that his pain worsens when he needs dialysis. Patient also reports that he only takes Tylenol 4 at home for chronic pain. Patient reports that last week he had dialysis on Monday, Monday, Monday, and Monday (May 19, , , and ) due to swelling. Patient reports that he feels like his right leg is swelling back up and reports right hip pain/back pain that radiates down right leg. Patient denies taking any pain medication for neuropathy. Patient denies chest pain, shortness of breath, abdominal pain or abdominal swelling.. Historical: - Allergies: 08:26 NKA; aa5 - PMHx: 08:26 CHF; Diabetes - NIDDM; dialysis on M/W/F; ESRD; Hypertension; insomnia; aa5 - PSHx: 08:26 bilateral knee repairs; Left arm fistula; R shoulder; aa5 - Immunization history:: Adult Immunizations unknown. - Infectious Disease History:: Denies. - Social history:: Smoking status: Patient reports the use of cigarette tobacco products. ROS: 09:21 Constitutional: as per hpi dr5 Exam: 09:21 Constitutional: This is a well developed, well nourished patient who is awake, alert, dr5 and in no acute distress. Head/Face: Normocephalic, atraumatic. Eyes: Pupils equal round and reactive to light, extra-ocular motions intact. Lids and lashes normal. Conjunctiva and sclera are non-icteric and not injected. Cornea within normal limits. Periorbital areas with no swelling, redness, or edema. Neck: Trachea midline, no thyromegaly or masses palpated, and no cervical lymphadenopathy. Supple, full range of motion without nuchal rigidity, or vertebral point tenderness. No Meningismus. Chest/axilla: Normal chest wall appearance and motion. Nontender with no deformity. No lesions are appreciated. Cardiovascular: Regular rate and rhythm with a normal S1 and S2. Normal PMI, no JVD. No pulse deficits. Respiratory: Lungs have equal breath sounds bilaterally, clear to auscultation. No rales, rhonchi or wheezes noted. No increased work of breathing, no retractions or nasal flaring. Back: No spinal tenderness. No costovertebral tenderness. Full range of motion. Skin: Warm, dry with normal turgor. Normal color with no rashes, no lesions, and no evidence of cellulitis. MS/ Extremity: Pulses equal, no cyanosis. Neurovascular intact. Full, normal range of motion. Neuro: Awake and alert, GCS 15, oriented to person, place, time, and situation. Cranial nerves II-XII grossly intact. Motor strength 5/5 in all extremities. Sensory grossly intact. Cerebellar exam normal. Normal gait. 09:21 Cardiovascular: JVD: is not appreciated, Dialysis shunt: in the left bicep, with palpable thrill, with auscultated bruit, with no erythema, with no edema, no bleeding noted Vital Signs: 08:13 BP 113 / 57; Pulse 59; Resp 18 S; Temp 97.8(O); Pulse Ox 96% on R/A; Weight 94.8 kg aa5 (R); Height 5 ft. 7 in. (R); 09:06 BP 106 / 52; Pulse 60; Resp 16 S; Pulse Ox 96% on R/A; aa5 08:13 Body Mass Index 32.73 (94.80 kg, 170.18 cm) aa5 MDM: 08:25 Medical Screening Exam initiated dr5 09:23 Differential diagnosis: contusion, abrasion, Need for dialysis, knee effusion, DVT. dr5 Data reviewed: vital signs, nurses notes, old medical records, Reviewed old medical records through [facility] from previous hospitalizations. Consideration of Admission/Observation Escalation of care including admission/observation considered. Escalation considered patient found to be short of breath, tachycardic, and febrile. I considered the following discharge prescriptions or medication management in the emergency department I discussed and recommended Over The Counter medications, Medications were administered in the Emergency Department. See MAR. Test considered but Not performed: Labs: Labs considered but patient has dialysis in 2 hours and patient kindly declines.. X-ray: X-ray considered but patient does not have chest pain. Ultrasound considered for rule out DVT but patient kindly declines as he does not think this the problem.. Care significantly affected by the following chronic conditions: Diabetes, Hypertension, Congestive Heart Failure, Chronic Kidney Disease. Care significantly affected by the following Social Determinants of Health: Poor access to healthcare and/or lack of insurance, Poor access to transportation, Inadequate housing, Misuse of alcohol and/or drugs, Problems related to employment. Counseling: I had a detailed discussion with the patient and/or guardian regarding the historical points, exam findings, and any diagnostic results supporting the discharge/admit diagnosis, the presence of at least one elevated blood pressure reading (>120/80) during this emergency department visit, the need for outpatient follow up, for definitive care, a family practitioner, to return to the emergency department if symptoms worsen or persist or if there are any questions or concerns that arise at home. Medication response: Tramadol, gabapentin, morphine. Response to treatment: the patient's symptoms have markedly improved after treatment. Special discussion: I discussed with the patient/guardian in detail that at this point there is no indication for admission to the hospital. It is understood, however, that if the symptoms persist or worsen the patient needs to return immediately for re-evaluation. Based on the presenting symptoms and work-up in the emergency department, I discussed in detail the need to arrange with the PCP or specialist an outpatient procedure, Dialysis. ED course: Patient has dialysis in 2 hours. Will give patient pain medication here as he requested and discharge him to dialysis. Patient is agreeable to plan. Recommended patient follow-up with primary care doctor as well as pain management. Will give patient gabapentin to help with neuropathy. All questions answered. Strict ER precautions given. Administered Medications: 08:52 Drug: morphine IVP or IV 4 mg IVP once over 4 mins Route: IVP; Infused Over: 4 mins; aa5 Site: right forearm; 09:06 Follow up: Response: No adverse reaction; Pain is decreased aa5 08:52 Drug: Ondansetron PO 4 mg PO once Route: PO; aa5 09:06 Follow up: Response: No adverse reaction aa5 08:52 Drug: traMADol PO 25 mg PO once Route: PO; aa5 09:06 Follow up: Response: No adverse reaction aa5 08:52 Drug: Gabapentin PO 300 mg PO once Route: PO; aa5 09:06 Follow up: Response: No adverse reaction aa5 Disposition: 19:58 I was immediately available on-site in the Emergency Department for consultation in the ms3 care of the patient. Disposition Summary: 05/26/25 08:44 Discharge Ordered Notes: Location: Home dr5 Condition: Stable dr5 Diagnosis - Pain in right leg dr5 Followup: dr5 - With: Emergency Department - When: As needed - Reason: Worsening of condition Followup: dr5 - With: Private Physician - When: 1 - 2 days - Reason: Recheck today's complaints, Continuance of care, Re-evaluation by your physician Discharge Instructions: - Discharge Summary Sheet dr5 - Musculoskeletal Pain dr5 Forms: - Medication Reconciliation Form dr5 - Patient Portal Instructions dr5 - Leadership Thank You Letter dr5 Prescriptions: - gabapentin 300 mg Oral capsule - take 1 capsule ORAL route daily As needed; 30 capsule; Refills: 0, Product dr5 Selection Permitted - Tramadol 50 mg Oral Tablet - take 1 tablet ORAL route every 8 hours as needed; 12 tablet; Refills: 0, dr5 Product Selection Permitted Signatures: Nabila Morataya RN RN aa5 Cliff Abbott, DO ms3 Rodney Morris, DINKING MACHINE OPERATOR-C DINKING MACHINE OPERATOR-Cdr5 Corrections: (The following items were deleted from the chart) 08:29 08:26 PSHx: [id number] (Unknown); aa5 aa5
== END 2025-05-26 09:10 | disposition home or self-care (01) ==
LOC: ER 08:14
DX: M79.604 Pain in right leg (principal); E11.22 Type 2 diabetes mellitus with diabetic chronic kidney disease; I13.2 Hypertensive heart and chronic kidney disease with heart failure and with stage 5 chronic kidney disease, or end stage renal disease; I50.9 Heart failure, unspecified; N18.6 End stage renal disease; Z99.2 Dependence on renal dialysis; Z72.0 Tobacco use
CPT/HCPCS: 96374; 99284; Q0162